=== PATIENT | female | born 1975 | race Caucasian/White ===

== ENCOUNTER 2019-01-08 00:23 | Emergency (ER) | payer MEDICAID, SELFPAY ==
[2019-01-08 00:24] VITALS: BP 134/85; PULSE 79; RESP 20; TEMP 36.8; O2SAT 98; BMI 36.6
--- NOTE | 2019-01-08 00:43 | ED.DCSUM_ITS ---
- ER Visit Summary Date of Service: 01/08/19 Chief Complaint: Dental pain History of Present Illness: The patient is a 43 F who presents with left lower dental pain that has been getting worse over the past 4 days. Patient describes the pain as aching and burning. Patient states the pain is over the lower incisors and worse on the left. Patient admits to hot and cold sensitivity. Patient denies any fevers or chills. Patient denies any facial or jaw swelling. Physical Examination: Vital signs are stable. Patient is afebrile. Patient is in no acute distress. Oral mucosa is pink and moist. There is tenderness over the left lower incisors. There is some mild gingival edema around these teeth. There is no discharge or drainage. There is no fluctuance. There is no sublingual edema. Oropharynx is clear. Airway is patent. Neck is supple. Trachea is midline. There is no JVD noted. Heart was regular rate and rhythm. Lungs are clear and equal bilaterally. Emergency Department Course and Treatment: Patient was given a dose of pen VK and Naprosyn here. Patient was given prescriptions for the same. Patient was instructed to follow-up with her dentist in 5-7 days. Patient understood and was agreeable with the plan. All questions were answered. Disposition: Discharge home Impression: Infected dental caries This note was generated with [employer] dictation software. It may contain incorrect words, spelling, and punctuation that were not noted in review of the chart prior to signing ED Disposition - Plan for ED Patient: Disposition: Home or Assisted Living Diagnosis: Infected dental caries Instructions: ED Cavity Dental Prescriptions: Naproxen [Naprosyn] 500 mg PO BID PRN #20 tab Penicillin Vk [Pen-Vee K 250MG] 500 mg PO 4X/DAY #40 tab Referrals: Ang Acosta MD [Primary Care Provider] - 5-7 Days
[2019-01-08] MEDS: Naproxen 250 MG Tablet 500 MG PO (00:47)
[2019-01-08] MEDS: Penicillin Vk 250 MG Tablet 500 MG PO (00:47)
[2019-01-08 01:07] VITALS: BP 144/97; PULSE 66; RESP 18; O2SAT 97
== END 2019-01-08 01:08 | disposition home or self-care (01) ==
PROVIDERS: Emergency Provider Emergency Medicine; Family Provider Family Medicine; PCP Family Medicine
DX: K02.9 Dental caries, unspecified (principal); K04.7 Periapical abscess without sinus; F32.9 Major depressive disorder, single episode, unspecified; Z72.0 Tobacco use
CPT/HCPCS: 99283

== ENCOUNTER 2019-02-09 16:03 | Emergency (ER) | payer MEDICAID, SELFPAY ==
[2019-02-09 16:03] VITALS: BP 125/80; PULSE 93; RESP 18; TEMP 36.9; O2SAT 95; BMI 36.6
--- NOTE | 2019-02-09 16:28 | CT_ITS ---
STUDY: CT ABDOMEN AND PELVIS WITH CONTRAST REASON FOR EXAM: Female, 43 years old. Abdominal pain RADIATION DOSAGE (If Supplied By Facility): CTDIvol = ( 25.59 ) mGy, DLP = ( 1647.83 ) mGycm TECHNIQUE: Transaxial images were obtained from the dome of the diaphragm to the symphysis pubis without oral contrast. 100 ml of Isovue 300 contrast was administered. Sagittal and coronal images were reconstructed. Individualized dose optimization techniques were used for this CT. COMPARISON: 08/11/2017. FINDINGS: The visualized lung bases are clear. The visualized portions of the heart and pericardium are within normal limits. There are no calcified gallstones present. The liver is within normal limits. There are no suspicious hepatic lesions. The spleen is enlarged, measuring 15.1 cm in maximal dimension. The pancreas is within normal limits. The adrenal glands are within normal limits. There are bilateral subcentimeter nonobstructing renal collecting system stones. There are no ureteral stones. There is no hydronephrosis. There are no focal renal lesions. Normal visualized stomach. There is no bowel obstruction or inflammation. The appendix is visualized and appears normal. The aorta is normal in caliber. There are tubal ligation clips noted. There are bilateral adnexal cysts with the largest measuring 4 cm on the left. There is no abdominal or pelvic free air, free fluid, fluid collection or lymphadenopathy. There are no destructive osseous lesions. CT/Abdomen/Pelvis W IV Cont ONLY IMPRESSION: Bilateral adnexal cysts, measuring up to 4 cm on the left. If indicated, further evaluation with ultrasound can be performed. Subcentimeter nonobstructing renal collecting system stones. No ureteral stones. No hydronephrosis. No bowel obstruction or inflammation. Normal appendix. Splenomegaly. Electronically Signed: Db Castaneda, at 18:52 EDT Tel , Service support ,
[2019-02-09 16:40] LABS: Absolute Lymphocyte Count 1.91 X10^3/ul (0.83-4.51); Absolute Neutrophil Count 7.2 X10^3/uL (2.0-7.7); Basophil# 0.01 X10^3/uL; Basophil% 0.1 % (0-1); Eosinophil# 0.09 X10^3/uL; Eosinophils% 0.9 % (0-5); Hematocrit 42.3 % (37-47); Hemoglobin 14.1 g/dl (12.0-15.0); Lymphocyte # 1.91 X10^3/ul (4.0); Lymphocyte % 19.4 % (19-41); Mean Corp Hgb Conc 33.3 g/gl (32-36); Mean Corpuscular Hgb 29.4 pg (27.0-32.0); Mean Corpuscular Volume 88.3 fL (81-99); Mean Platelet Vol. 11.7 fl (6.2-12.0); Monocyte# 0.68 X10^3/uL; Monocyte% 6.9 % (0-10); Neutrophil # 7.16 X10^3/uL (2.7-7.7); Neutrophil % 72.5 % (47-70); Platelet Count 228 K/mm3 (150-450); RBC Distribution Width CV 13.6 % (11.6-14.6); RBC Distribution Width SD 44.2 fl (35.1-43.9); Red Blood Count 4.79 M/mm3 (4.2-5.4); White Blood Count 9.9 K/mm3 (4.4-11.0)
[2019-02-09] MEDS: Ondansetron 4 MG/2 ML Vial IV (16:47)
[2019-02-09] MEDS: 0.9% Normal Saline 1,000 ML 1000 ML IV (16:47)
[2019-02-09 16:55] LABS: ALB/GLOB Ratio 0.7 RATIO (0.9-2.4); AST(SGOT) 99 U/L (15-37); Alanine Aminotransfer ALT/SGPT 115 U/L (13-56); Albumin, Serum 3.6 g/dL (3.2-5.0); Alkaline Phosphatase 113 U/L (45-117); Anion Gap 8 (5-15); BUN 12 mg/dL (7-18); BUN/Creat Ratio 11.8 RATIO (10-20); Calcium,Total 9.4 mg/dL (8.5-10.1); Chloride 111 mmol/L (98-107); Creatinine, Serum 1.02 mg/dL (0.55-1.02); EST Glomerular Filtration Rate 62 mL/min (>60); Est Glom Filt Rate - Afr Amer 75 mL/min (>60); Estimated Creatinine Clearance 55.09 ml/min; Globulin 5.2 g/dL (2.2-4.2); Glucose 115 mg/dL (74-106); Lipase 160 U/L (73-393); POSITIVE COUNT NO; POSITIVE DIFFERENTIAL NO; POSITIVE MORPHOLOGY NO; Potassium 3.6 mmol/L (3.5-5.1); Protein, Total 8.8 g/dL (6.4-8.2); Sodium Level 138 mmol/L (136-145)
[2019-02-09 17:43] LABS: Color, Urine Yellow (Yellow); Glucose, Dipstick Normal (Normal); Ketone-Dipstick Negative (Negative); Leukocyte Esterase-Dipstick 25 /ul (Negative); Nitrite-Dipstick Negative (Negative); Occult Blood-Urine Negative /ul (Negative); Protein-Dipstick 15 mg/dl (Negative); Urine Bilirubin Dipstick Negative (Negative); Urine Clarity Sl. Cloudy (Clear); Urine Urobilinogen 1 mg/dl (Normal)
[2019-02-09 18:01] LABS: Bacteria 4+ /hpf (None Seen)
[2019-02-09 18:02] LABS: Mucous, Urine 2+ /hpf (<or=2+); Red Blood Cells-Urine 0-5 SEEN /hpf (0-5); Squamous Epithelial Cells - UA 25-50 SEEN /hpf (5-10); White Blood Cells 0-5 SEEN /hpf (0-5)
[2019-02-09 18:10] LABS: Internal QC Validated? YES +Cl - CLEAR BKGD; Pregnancy, Serum, hCG Quali. NEGATIVE Negative
[2019-02-09 19:03] VITALS: BP 146/81; PULSE 76; RESP 16; O2SAT 96
--- NOTE | 2019-02-09 19:18 | ED.VISSUMM ---
- ER Visit Summary Date of Service: 02/09/19 Chief Complaint: Stomach pain History of Present Illness: The patient is a 43 F with stomach pain for 2 days. The patient said it felt like gas. The pain involves her upper abdomen. Associated with belching and diarrhea. Denies chest pain or shortness of breath. Denies bleeding. Denies any recent antibiotics or hospitalization. She does have a history of hepatitis C, depression, and anxiety. History of a liver biopsy. She does occasionally drink alcohol and she is a smoker. Physical Examination: Afebrile and vital signs unremarkable. Alert and oriented. No acute distress. Heart regular rate and rhythm. Lungs clear. Abdomen soft, nontender, nondistended, with normal bowel sounds. Skin appears normal in color without pallor or jaundice. Extremity is nontender with no edema. Test Results: CBC normal. Chloride 111, CO2 19 and glucose 115. ALT 115 and AST 99. Lipase normal. Urinalysis unremarkable. testing negative. CT was done and showed bilateral adnexal cyst, largest measuring 4cm on the left. She has renal stones that are nonobstructing and splenomegaly. Emergency Department Course and Treatment: Patient treated with fluids and Zofran. Her work-up was all fairly unremarkable. Her liver enzymes are elevated. She does have a history of hepatitis C. Imaging showed bilateral adnexal cysts. Patient is not having lower abdominal pain. He could be contributing to her diarrhea. Her CT also showed nonobstructing renal stones and splenomegaly. I believe the patient is appropriate for medical treatment. We will treat with Zofran and Imodium. Stay hydrated. Follow-up with primary care. Treatment Plan: As above Disposition: Discharge Impression: 1. Diarrheal illness 2. History of hepatitis C This note was generated with [employer] software. It may contain incorrect words, spelling, and punctuation that were not noted in review of the chart prior to signing ED Disposition - Plan for ED Patient: Referrals: Ang Acosta MD [Primary Care Provider] -
--- NOTE | 2019-02-09 19:47 | ED.DCSUM_ITS ---
- ER Visit Summary Date of Service: 02/09/19 Chief Complaint: Stomach pain History of Present Illness: The patient is a 43 F with stomach pain for 2 days. The patient said it felt like gas. The pain involves her upper abdomen. Associated with belching and diarrhea. Denies chest pain or shortness of arlin th. Denies bleeding. Denies any recent antibiotics or hospitalization. She does have a history of hepatitis C, depression, and anxiety. History of a liver biopsy. She does occasionally drink alcohol and she is a smoker. Physical Examination: Afebrile and vital signs unremarkable. Alert and oriented. No acute distress. Heart regular rate and rhythm. Lungs clear. Abdomen soft, nontender, nondistended, with normal bowel sounds. Skin appears normal in color without pallor or jaundice. Extremity is nontender with no edema. Test Results: CBC normal. Chloride 111, CO2 19 and glucose 115. ALT 115 and AST 99. Lipase normal. Urinalysis unremarkable. testing negative. CT was done and showed bilateral adnexal cyst, largest measuring 4cm on the left. She has renal stones that are nonobstructing and splenomegaly. Emergency Department Course and Treatment: Patient treated with fluids and Zofran. Her work-up was all fairly unremarkable. Her liver enzymes are elevated. She does have a history of hepatitis C. Imaging showed bilateral adnexal cysts. Patient is not having lower abdominal pain. He could be contributing to her diarrhea. Her CT also showed nonobstructing renal stones and splenomegaly. I believe the patient is appropriate for medical treatment. We will treat with Zofran and Imodium. Stay hydrated. Follow-up with primary care. Treatment Plan: As above Disposition: Discharge Impression: 1. Diarrheal illness 2. History of hepatitis C This note was generated with [employer] software. It may contain incorrect words, spelling, and punctuation that were not noted in review of the chart prior to signing ED Disposition - Plan for ED Patient: Referrals: Ang Acosta MD [Primary Care Provider] -
--- NOTE | 2019-02-09 19:47 | ED.DEP ---
ED Disposition - Plan for ED Patient: Instructions: ED Vomiting Diarrhea Nonspecific Ad Prescriptions: Loperamide [Imodium] 2 mg PO Q4H PRN PRN #30 cap PRN Reason: Diarrhea Ondansetron [Zofran Odt] 4 mg PO Q8H PRN PRN #10 tab PRN Reason: Nausea Referrals: Ang Acosta MD [Primary Care Provider] -
[2019-02-09] MEDS: Loperamide 2 MG Capsule 4 MG PO (19:53)
== END 2019-02-09 19:56 | disposition home or self-care (01) ==
LOC: ED 16:30
PROVIDERS: Emergency Provider Emergency Medicine; Family Provider Family Medicine; PCP Family Medicine
DX: R19.7 Diarrhea, unspecified (principal); F32.9 Major depressive disorder, single episode, unspecified; F41.9 Anxiety disorder, unspecified; F17.200 Nicotine dependence, unspecified, uncomplicated; Z79.899 Other long term (current) drug therapy; Z86.19 Personal history of other infectious and parasitic diseases
CPT/HCPCS: 74177; 80053; 81001; 83690; 84703; 85025; 96361; 96374; 99284; J7030; Q9967; A4216; J2405

== ENCOUNTER → 2019-02-20 10:30 | Outpatient (CLI) | payer MEDICAID, SELFPAY ==
[2019-02-20 10:02] VITALS: BMI 36.6
[2019-02-20 16:42] LABS: Chlamydia Trachomatis by PCR Negative (Negative); Neisserai gonorrhoeae by PCR Negative (Negative); Probe Check PASS; Sample Adequacy Control PASS; Specimen Processing Control PASS
[2019-02-22 16:53] LABS: HPV APTIMA, High Risk Negative (Negative)
== END ==
PROVIDERS: Family Provider Family Medicine; PCP Family Medicine; Referring Provider Nurse Practitioner Women's Health; Visit Provider Nurse Practitioner Women's Health
DX: Z12.4 Encounter for screening for malignant neoplasm of cervix (principal); Z11.3 Encounter for screening for infections with a predominantly sexual mode of transmission
CPT/HCPCS: 87491; 87591; 87624; 88175; G0145

== ENCOUNTER → 2019-02-22 13:30 | Outpatient (CLI) | payer MEDICAID, SELFPAY ==
[2019-02-20 10:02] VITALS: BMI 36.6
--- NOTE | 2019-02-22 13:32 | US_ITS ---
STUDY: ULTRASOUND OF THE FEMALE PELVIS - COMPLETE REASON FOR EXAM: Female, 43 years old. Pelvic pain TECHNIQUE: Transabdominal and Transvaginal TECHNICAL QUALITY: Adequate. COMPARISON: CT dated 02/09/2019 FINDINGS: The uterus is anteverted and is in a midline position. The uterus measures 9.4 x 6.1 x 4.8 cm cm. Normal uterine cervix. The endometrium measures 3 mm in thickness, and is hyperechoic. There is no demonstrated endometrial mass. There are hyperechoic nodules extending into the myometrium which may be due to adenomyosis. The right ovary is visualized. The right ovary measures 4.0 x 2.3 x 2.1 cm. There is a 1.9 x 1.4 cm cyst in the right ovary. There is no visualized right adnexal mass or complex lesion. There is normal arterial and normal venous vascularity. The left ovary is visualized. The left ovary measures 4.7 x 2.7 x 2.1 cm. There is a 2.5 x 2.1 cm cyst in the left ovary. There is no visualized left adnexal mass or complex lesion. There is normal arterial and normal venous vascularity. There is a moderate amount of free fluid. US/Transvaginal Non- IMPRESSION: Hyperechoic nodule extending from the endometrium to the myometrium which may be due to adenomyosis. If indicated, further evaluation with MRI can be performed. Bilateral ovarian cysts. Moderate amount of free fluid. Electronically Signed: Db Tonya, at 17:53 EDT Tel , Service support ,
--- NOTE | 2019-02-22 13:32 | US_ITS ---
STUDY: ULTRASOUND OF THE FEMALE PELVIS - COMPLETE REASON FOR EXAM: Female, 43 years old. Pelvic pain TECHNIQUE: Transabdominal and Transvaginal TECHNICAL QUALITY: Adequate. COMPARISON: CT dated 02/09/2019 FINDINGS: The uterus is anteverted and is in a midline position. The uterus measures 9.4 x 6.1 x 4.8 cm cm. Normal uterine cervix. The endometrium measures 3 mm in thickness, and is hyperechoic. There is no demonstrated endometrial mass. There are hyperechoic nodules extending into the myometrium which may be due to adenomyosis. The right ovary is visualized. The right ovary measures 4.0 x 2.3 x 2.1 cm. There is a 1.9 x 1.4 cm cyst in the right ovary. There is no visualized right adnexal mass or complex lesion. There is normal arterial and normal venous vascularity. The left ovary is visualized. The left ovary measures 4.7 x 2.7 x 2.1 cm. There is a 2.5 x 2.1 cm cyst in the left ovary. There is no visualized left adnexal mass or complex lesion. There is normal arterial and normal venous vascularity. There is a moderate amount of free fluid. US/Pelvic (Non ) IMPRESSION: Hyperechoic nodule extending from the endometrium to the myometrium which may be due to adenomyosis. If indicated, further evaluation with MRI can be performed. Bilateral ovarian cysts. Moderate amount of free fluid. Electronically Signed: Db Castaneda, at 17:54 EDT Tel , Service support ,
== END ==
PROVIDERS: Family Provider Family Medicine; PCP Family Medicine; Referring Provider Nurse Practitioner Women's Health; Visit Provider Nurse Practitioner Women's Health
DX: R10.2 Pelvic and perineal pain (principal)
CPT/HCPCS: 76830; 76856; 93976

== ENCOUNTER 2019-06-11 07:16 | Emergency (ER) | payer MEDICAID, SELFPAY ==
[2019-02-20 10:02] VITALS: BMI 36.6
[2019-06-11 07:17] VITALS: BP 140/85; PULSE 92; RESP 16; TEMP 36.8; O2SAT 94; BMI 36.6
--- NOTE | 2019-06-11 07:35 | RAD_ITS ---
STUDY: X-RAY CHEST REASON FOR EXAM: Female, 43 years old. One-week history of cough. TECHNIQUE: PA and lateral views of the chest. COMPARISON: None. FINDINGS: The lungs are clear and expanded. There is no demonstrated pleural abnormality. Normal size heart. Normal mediastinum and cal. Normal visualized pulmonary arteries. Normal visualized aortic arch and descending thoracic aorta. Normal visualized thoracic spine. Normal visualized ribs, clavicles, and shoulders. There is no demonstrated abnormality of the visualized soft tissue structures of the upper abdomen. RAD/Chest PA and Lateral IMPRESSION: Normal x-ray examination of the chest. Electronically Signed: Isidro Burnett, at 8:34 EDT , Service support ,
[2019-06-11] MEDS: Albuterol 2.5 MG/3 ML VIAL.NEB. INHALATION (07:42)
[2019-06-11] MEDS: predniSONE 20 MG Tablet 60 MG PO (07:43)
--- NOTE | 2019-06-11 07:43 | ED.VISSUMM ---
- ER Visit Summary Date of Service: 06/11/19 Chief Complaint: Cough and shortness of breath History of Present Illness: The patient is a 43 F who has a cough and shortness of breath. Is been ongoing for 1 week. She saw her PCP who gave her an inhaler and she has also been trying Mucinex at home without any relief. She has had mild nasal congestion with this. She also states that her cough is not productive. Nothing comes up. She did not check her temperature at home. She is a smoker and is diagnosed with COPD. She denies any other symptoms. No chest pain. Physical Examination: Vital signs are reviewed. HEENT exam unremarkable. Heart is regular rate and rhythm without murmurs. Lungs have diffuse expiratory rhonchi and wheezing. Her abdomen is soft and nontender. Extremities have no edema. Neurologic exam normal. Test Results: Chest x-ray normal Emergency Department Course and Treatment: Patient was given albuterol as well as prednisone. Upon reevaluation she still has some slight wheezing but she is 96% on room air. Patient will be discharged to continue her albuterol inhaler at home. She will be given 4 more days of prednisone. She was counseled on smoking cessation. She will need to follow-up with her PCP if her symptoms persist. Treatment Plan: [] Disposition: Discharge Impression: Bronchitis This note was generated with [employer] dictation software. It may contain incorrect words, spelling, and punctuation that were not noted in review of the chart prior to signing ED Disposition - Plan for ED Patient: Referrals: Ang Acosta MD [Primary Care Provider] -
[2019-06-11 07:45] VITALS: PULSE 82; RESP 18; O2SAT 94
--- NOTE | 2019-06-11 08:56 | ED.DEP ---
ED Disposition - Plan for ED Patient: Disposition: Home or Assisted Living Instructions: BRONCHITIS with Wheezing (Adult) Prescriptions: Prednisone [Deltasone] 60 mg PO DAILY #12 tab Prescription Printed Referrals: Ang Acosta MD [Primary Care Provider] -
== END 2019-06-11 09:14 | disposition home or self-care (01) ==
PROVIDERS: Emergency Provider Emergency Medicine; Family Provider Family Medicine; PCP Family Medicine
DX: J40 Bronchitis, not specified as acute or chronic (principal); J44.9 Chronic obstructive pulmonary disease, unspecified; F32.9 Major depressive disorder, single episode, unspecified; F17.200 Nicotine dependence, unspecified, uncomplicated; Z79.899 Other long term (current) drug therapy
CPT/HCPCS: 71046; 94640; 99283

== ENCOUNTER → 2020-11-27 | Outpatient (CLI) | payer MEDICAID, SELFPAY ==
--- NOTE | 2020-11-27 | EMB_PTH ---
PATIENT: CAROLINA HIGHTOWER [facility] U#:[id number] AGE/SX: 45/F ROOM: RE11/27/[address]: Dr. Samir Narvaez MD : 1975 BED: DIS: 11/27/2020 SPEC #: [id number] RECD: 11/27/20 17:10 STATUS: TRAMAINE REQ #: [id number] KYLAH: 11/27/20 00:[address]: Samir Narvaez DEPT: SURGICAL PATHOLOGY RECD BY: Mayra Sanders ENTERED: 11/28/20 08:38 SP TYPE: ENDOM BX/C [place] DR: Dr. Ang Acosta MD Tissues: Endometrium, NOS Procedures: Surgery Specimen Level IV HEADER OPERATION: Endometrial biopsy PRE-OP DIAGNOSIS: Irregular menses TISSUE SUBMITTED: Endometrial biopsy MICROSCOPIC DIAGNOSIS Endometrial biopsy: Proliferative endometrium. See comment. MT:samy 12/01/2020 COMMENT A polypoid fragment suggestive of benign endometrial polyp is also noted. Clinical correlation and appropriate follow up are necessary. MICROSCOPIC DESCRIPTION Slides are reviewed. GROSS DESCRIPTION Received is one container labeled with the patient's name and not further designated. The specimen consists of multiple fragments of hemorrhagic soft tissue that in aggregate measure 2.5 x 1.2 x 0.1 cm. The specimen is totally submitted in one cassette. / SJ:samy 11/28/20 TC:5 CPT: 67348
== END | disposition home or self-care (01) ==
LOC: LABSPEC 17:00
PROVIDERS: PCP Family Medicine; Visit Provider Obstetrics & Gynecology
DX: N92.6 Irregular menstruation, unspecified (principal)
CPT/HCPCS: 88305

== ENCOUNTER 2021-02-24 02:20 | Emergency (ER) | payer MEDICAID, SELFPAY ==
[2021-02-24 02:21] VITALS: BP 108/61; PULSE 60; RESP 16; TEMP 36.4; O2SAT 97; BMI 37.3
--- NOTE | 2021-02-24 02:40 | EX.ED.DYSGE1 ---
HPI History of Present Illness Chief Complaint: Bite Informant: patient Narrative Narrative: 45-year-old female states that she was playing with her dog when she fell down. She states her face got caught by the grass. States she washed them up. She states her whole body hurts. She also notes that she has not had a period for 1 year. She states that earlier today she started having some vaginal bleeding but that has since stopped. She does not know who her ux researcher is because it has been years since she saw them. [facility] Medical History Acute insomnia Anxiety Depression Hepatitis C infection History of mixed drug abuse Home Medications duloxetine 100 mg PO DAILY 10/08/13 [History Last Taken 12/24/13] topiramate 25 mg PO BID 12/24/13 [History Last Taken 12/24/13] zolpidem 5 mg PO QHS 12/24/13 [History Last Taken 12/23/13] ferrous sulfate 325 mg PO DAILY 02/09/19 [History Last Taken Unknown] hydroxyzine HCl 25 mg PO PRN PRN 02/09/19 [History Last Taken Unknown] loperamide 2 mg PO Q4H PRN PRN #30 cap 02/09/19 [Rx Last Taken Unknown] ondansetron 4 mg PO Q8H PRN PRN #10 tab 02/09/19 [Rx Last Taken Unknown] aripiprazole 10 mg tablet 15 mg PO QHS tab 02/20/19 [History Last Taken Unknown] desvenlafaxine 100 mg tablet,extended release 24 hour 100 mg PO DAILY 02/20/19 [History Last Taken Unknown] gabapentin 300 mg capsule 300 mg PO DAILY 02/20/19 [History Last Taken Unknown] norethindrone (contraceptive) 0.35 mg tablet 0.35 mg PO QDAY #84 tab 02/28/19 [Rx Last Taken Unknown] albuterol sulfate 1 - 2 puff INHALATION Q4H PRN PRN 06/11/19 [History Last Taken Unknown] prednisone 60 mg PO DAILY #12 tab 06/11/19 [Rx Last Taken Unknown] Allergy/AdvReac Type Severity Reaction Status Date / Time aspirin Allergy Other Verified 02/24/21 02:26 bupropion HCl Allergy SEIZURES Verified 02/24/21 02:26 [From Wellbutrin] codeine Allergy Rash Verified 02/24/21 02:26 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, marijuana, heroin and methamphetamine seatbelt use: always do you feel safe at home: Yes ROS ROS ED Constitutional Constitutional ED: Denies chills or weight loss Eyes Eyes: Denies change in vision or diplopia ENT ENT ED: Denies ear pain, rhinorrhea or sore throat Cardiovascular Cardiovascular: Denies chest pain, orthopnea, palpitations or racing heartbeat Respiratory/Chest Respiratory/Chest: Denies cough, dyspnea or orthopnea Gastrointestinal Gastrointestinal: Denies abdominal pain, diarrhea, nausea or vomiting Genitourinary Genitourinary ED: Reports other Details: Vaginal bleeding ; Denies dysuria, hematuria or urinary frequency Musculoskeletal Musculoskeletal: Reports myalgias; Denies arthralgias Integumentary Reports Abrasions; Denies abscess or rash Neurologic Neurologic: Denies headache(s) or weakness Psychiatric Psychiatric: Denies anxiety, depression, suicidal ideation or suicidal thoughts Endocrine Endocrinology: Denies polydipsia, polyphagia or polyuria Allergic/Immunologic Allergic/Immunologic ED: Denies mouth swelling, tongue swelling or urticaria EXAM Physical Exam Const Vital Signs: 02/24/21 02:21 Temperature 97.6 F L Temperature Source Temporal Pulse Rate 60 Respiratory Rate 16 Blood Pressure 108/61 Blood Pressure Mean 76 Pulse Ox 97 Oxygen Delivery Method Room Air Positive well nourished, well developed and obese General Appearance ED: well developed Nutritional Appearance: obese HEENT Reports normocephalic and head/scalp atraumatic trauma Eyes PERRL and EOMs intact bilaterally Neck no lymphadenopathy, supple and no JVD Resp normal respiratory effort and clear to auscultation bilaterally Cardio regular rate, regular rhythm and no murmurs GI normal to inspection, nondistended, normoactive bowel sounds and non-tender Palpation: soft Back/Spine no CVA tenderness and normal ROM Extremity normal to inspection General Extremety ED: Negative for edema General Extremity: Negative for edema Neuro oriented x3 and CN's II-XII intact bilaterally Sensorium / Orientation: alert Motor Exam: strength 5/5 throughout Psych mental status grossly normal Mood & Affect: Negative for depressed or tearful Skin no rashes or lesions noted Skin Narrative: Multiple superficial abrasions to the face. MDM MDM MDM Narrative Medical decision making narrative: The abrasions are superficial and do not need to be sewn. Generalized body pain after a fall is not uncommon and would recommend Tylenol Motrin for that. For the postmenopausal bleeding that is no longer going on I think she should see gynecology for this. Dr. Dawson is on no doc gynecology. It is 0245 hours and ultrasound is not readily available. I do not feel that they need to be emergently called in as this can be worked up as an outpatient. Discharge Plan Triage Chief Complaint: Bite ED Provider: Tom Wong Dx/Rx/DC Orders Clinical Impression: Abnormal vaginal bleeding in postmenopausal patient, Abrasion of face without infection Instructions: ED Abrasion Prescriptions: No Action gabapentin 300 mg capsule 300 mg PO DAILY RF: 0 desvenlafaxine 100 mg tablet extended release 24hr 100 mg PO DAILY RF: 0 duloxetine 20 MG capsule 100 mg PO DAILY RF: 0 aripiprazole 10 mg tablet 15 mg PO QHS RF: 0 topiramate 25 MG tablet 25 mg PO BID RF: 0 zolpidem 12.5 MG tablet,ext release multiphase 5 mg PO QHS RF: 0 ferrous sulfate 325 MG tablet 325 mg PO DAILY RF: 0 hydroxyzine HCl 25 MG tablet 25 mg PO PRN PRN (Reason: Anxiety) RF: 0 ondansetron 4 MG tablet 4 mg PO Q8H PRN PRN (Reason: Nausea) Qty: 10 RF: 0 loperamide 2 MG capsule 2 mg PO Q4H PRN PRN (Reason: Diarrhea) Qty: 30 RF: 0 albuterol sulfate 1 PUFF inhaler 1 - 2 puff inhalation Q4H PRN PRN (Reason: Sob &/Or Wheezing) RF: 0 prednisone 20 MG tablet 60 mg PO DAILY Qty: 12 RF: 0 norethindrone (contraceptive) [Carmen] 0.35 mg tablet 0.35 mg PO QDAY Qty: 84 RF: 4 Primary Care Provider: Ang Acosta Referrals: Jeannette Dawson MD [STAFF PHYSICIAN] - As soon as possible Ang Acosta MD [Primary Care Provider] - As Needed Activity Restrictions/Additional Instructions: Postmenopausal bleeding should be appropriately worked up by gynecology. Dr. Dawson is a ux researcher locally that can evaluate you. Disposition Disposition: Home, self care
[2021-02-24 02:59] VITALS: BP 120/76; PULSE 80; RESP 16
== END 2021-02-24 03:00 | disposition home or self-care (01) ==
LOC: ED 02:53
PROVIDERS: Emergency Provider Emergency Medicine; PCP Family Medicine
DX: N95.0 Postmenopausal bleeding (principal); S00.81XA Abrasion of other part of head, initial encounter; E66.9 Obesity, unspecified; W19.XXXA Unspecified fall, initial encounter; F17.210 Nicotine dependence, cigarettes, uncomplicated
CPT/HCPCS: 99282

== ENCOUNTER 2021-06-12 18:12 | Emergency (ER) | payer MEDICAID, SELFPAY ==
[2021-06-12 18:15] VITALS: BP 129/84; PULSE 82; RESP 16; TEMP 36.9; O2SAT 97; BMI 37.1
--- NOTE | 2021-06-12 19:23 | CT_ITS ---
STUDY: CT ABDOMEN AND PELVIS WITHOUT CONTRAST REASON FOR EXAM: Female, 45 years old. Pain hepatitis C emphysema RADIATION DOSAGE (If Supplied By Facility): CTDIvol = ( 15.79 ) mGy, DLP = ( 781.18 ) mGycm TECHNIQUE: Transaxial images were obtained from the dome of the diaphragm to the symphysis pubis without oral contrast, and without intravenous contrast. Sagittal and coronal images were reconstructed. Individualized dose optimization techniques were used for this CT. COMPARISON: None. FINDINGS: Lung bases are clear. Liver is moderately cirrhotic with volume redistribution to the right lobe. There is no ascites. Gallbladder is normal. There is no biliary dilation. Spleen is moderately enlarged. Normal liver. Normal gallbladder and extrahepatic biliary system. Normal spleen. Normal pancreas. Normal bilateral adrenal glands. There is no hydronephrosis. There is a 3 mm interpolar calyceal and 2 lower pole 1 mm nonobstructing calculi. There are no ureteral or bladder stones. There is no intestinal obstruction. There is inflammation in the subhepatic space and related to the right colon. Appendix is normal. There is no fluid collections or free gas. Normal abdominal aorta. Normal inferior vena cava. Normal retroperitoneum. Normal urinary bladder. There are tubal ligation clips. Normal abdominal wall. Normal osseous structures. CT/Abdomen/Pelvis without Cont IMPRESSION: 1. Subhepatic right upper quadrant pericolonic inflammation, probably diverticulitis. 2. Moderate cirrhosis, no ascites. Electronically Signed: Lobo Jeffers MD at 20:45 EDT Tel , Service support ,
--- NOTE | 2021-06-12 19:25 | ED.VIS.GI ---
HPI HPI - GI History of Present Illness Chief Complaint: Abd Pain Narrative Narrative: Patient with past medical history of hepatitis C, presents from rehabilitation with abdominal pain and bloating. She states mainly on the right side. It started over the last 2 days. She states she was told to drink plenty of water and in doing so, her abdomen became distended. She denies any chest pain or shortness of breath. No fevers or chills. No nausea or vomiting. She denies any dysuria or hematuria. No other symptoms. [facility] Medical History Acute insomnia Anxiety Depression Hepatitis C infection History of mixed drug abuse Home Medications duloxetine 100 mg PO DAILY 10/08/13 [History Last Taken 12/24/13] topiramate 25 mg PO BID 12/24/13 [History Last Taken 12/24/13] zolpidem 5 mg PO QHS 12/24/13 [History Last Taken 12/23/13] ferrous sulfate 325 mg PO DAILY 02/09/19 [History Last Taken Unknown] hydroxyzine HCl 25 mg PO PRN PRN 02/09/19 [History Last Taken Unknown] loperamide 2 mg PO Q4H PRN PRN #30 cap 02/09/19 [Rx Last Taken Unknown] ondansetron 4 mg PO Q8H PRN PRN #10 tab 02/09/19 [Rx Last Taken Unknown] aripiprazole 10 mg tablet 15 mg PO QHS tab 02/20/19 [History Last Taken Unknown] desvenlafaxine 100 mg tablet,extended release 24 hour 100 mg PO DAILY 02/20/19 [History Last Taken Unknown] gabapentin 300 mg capsule 300 mg PO DAILY 02/20/19 [History Last Taken Unknown] norethindrone (contraceptive) 0.35 mg tablet 0.35 mg PO QDAY #84 tab 02/28/19 [Rx Last Taken Unknown] albuterol sulfate 1 - 2 puff INHALATION Q4H PRN PRN 06/11/19 [History Last Taken Unknown] prednisone 60 mg PO DAILY #12 tab 06/11/19 [Rx Last Taken Unknown] ibuprofen 800 mg PO Q8H PRN #30 tab 06/12/21 [Rx Last Taken Unknown] levofloxacin 750 mg PO DAILY #7 tab 06/12/21 [Rx Last Taken Unknown] metronidazole 500 mg PO TID #21 tab 06/12/21 [Rx Last Taken Unknown] Allergy/AdvReac Type Severity Reaction Status Date / Time bupropion HCl Allergy SEIZURES Verified 06/12/21 18:14 [From Wellbutrin] codeine Allergy Rash Verified 06/12/21 18:14 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, marijuana, heroin and methamphetamine seatbelt use: always do you feel safe at home: Yes EXAM Physical Exam Const Vital Signs: 06/12/21 18:15 Temperature 98.4 F Temperature Source Temporal Pulse Rate 82 Respiratory Rate 16 Blood Pressure 129/84 H Blood Pressure Mean 99 Pulse Ox 97 Oxygen Delivery Method Room Air MDM MDM MDM Narrative Medical decision making narrative: Comprehensive work-up was pursued. She has normal white count at 10.0, hemoglobin stable of 12.5. Her electrolyte panel/CMP is grossly unremarkable except for elevated liver enzymes of 304 and 233 with an alk phos of 146. Lipase normal at 220. Her urinalysis shows WBCs 25-50 but is negative for nitrites. CT the abdomen pelvis shows subhepatic right upper quadrant pericolonic inflammation, probably diverticulitis. There is moderate cirrhosis but no evidence of ascites. Given her pain, she was administered Toradol 30 mg intravenously. As she states that she is in drug rehabilitation, I am hesitant to write her for narcotic pain medications for her diverticulitis. I do feel that her liver enzymes are chronically elevated from cirrhosis/hepatitis C. She was given her first doses of Levaquin and Flagyl here in the emergency department. I wrote her prescriptions for Levaquin, Flagyl, and ibuprofen. She is to follow-up with her primary care physician on Tuesday. She will return with any fever, increased pain, new or worsening symptoms. At this point in time, I do feel that she is stable for outpatient trial to treat her diverticulitis as she is of younger age, no white count, no fever here in the emergency department. Disposition is discharged home/back to rehabilitation. Patient is in stable condition. Lab Data Attestation: I reviewed the patient's lab results. Labs: Laboratory Results - last 24 hr 06/12/21 06/12/21 06/12/21 19:30 19:37 19:37 WBC 10.0 RBC 4.42 Hgb 12.5 Hct 39.3 MCV 88.9 MCH 28.3 MCHC 31.8 L RDW Std Deviation 53.5 H RDW Coeff of Katalina 16.6 H Plt Count 108 L MPV 11.6 Immature Gran % (Auto) 0.300 Neut % (Auto) 57.4 Lymph % (Auto) 30.5 [place] % (Auto) 8.6 Eos % (Auto) 2.6 Baso % (Auto) 0.6 Absolute Neuts (auto) 5.8 Absolute Lymphs (auto) 3.06 Nucleated RBC % 0 Sodium 138 Potassium 3.7 Chloride 110 H Carbon Dioxide 23.0 Anion Gap 5 BUN 9 Creatinine 0.89 Estim Creat Clear Calc 61.80 Est GFR (MDRD) Af Amer 88 Est GFR (MDRD) Non-Af 72 BUN/Creatinine Ratio 10.1 Glucose 78 Calcium 8.8 Total Bilirubin 1.10 H AST 304 H ALT 233 H Alkaline Phosphatase 146 H Total Protein 8.3 H Albumin 3.0 L Globulin 5.3 H Albumin/Globulin Ratio 0.6 L Lipase 220 Urine Color Yellow Urine Clarity Sl. Cloudy Urine pH 6.0 Ur Specific [place] 1.010 Urine Protein Negative Urine Glucose (UA) Normal Urine Ketones Negative Urine Occult Blood 150 H Urine Nitrite Negative Urine Bilirubin Negative Urine Urobilinogen Normal Ur Leukocyte Esterase 500 H Urine RBC 0 SEEN Urine WBC 25-50 SEEN Ur Squamous Epith Cells 0-5 SEEN Urine Bacteria 0 SEEN Urine Mucus 0 SEEN Urine Test Negative Radiography Diagnostic Testing: Radiology Impression Abdomen/Pelvis CT 06/12/21 19:23 IMPRESSION: 1. Subhepatic right upper quadrant pericolonic inflammation, probably diverticulitis. 2. Moderate cirrhosis, no ascites. Electronically Signed: Lobo Jeffers MD at 20:45 EDT Tel , Service support , Discharge Plan Triage Chief Complaint: Abd Pain ED Provider: Samuel Nelson Dx/Rx/DC Orders Clinical Impression: Hepatitis C, chronic, Abdominal pain, Diverticulitis Instructions: ED Diverticulitis Prescriptions: New levofloxacin 750 mg tablet 750 mg PO DAILY Qty: 7 RF: 0 metronidazole 500 mg tablet 500 mg PO TID Qty: 21 RF: 0 ibuprofen 800 mg tablet 800 mg PO Q8H PRN (Reason: pain) Qty: 30 RF: 0 No Action gabapentin 300 mg capsule 300 mg PO DAILY RF: 0 desvenlafaxine 100 mg tablet extended release 24hr 100 mg PO DAILY RF: 0 duloxetine 20 MG capsule 100 mg PO DAILY RF: 0 aripiprazole 10 mg tablet 15 mg PO QHS RF: 0 topiramate 25 MG tablet 25 mg PO BID RF: 0 zolpidem 12.5 MG tablet,ext release multiphase 5 mg PO QHS RF: 0 ferrous sulfate 325 MG tablet 325 mg PO DAILY RF: 0 hydroxyzine HCl 25 MG tablet 25 mg PO PRN PRN (Reason: Anxiety) RF: 0 ondansetron 4 MG tablet 4 mg PO Q8H PRN PRN (Reason: Nausea) Qty: 10 RF: 0 loperamide 2 MG capsule 2 mg PO Q4H PRN PRN (Reason: Diarrhea) Qty: 30 RF: 0 albuterol sulfate 1 PUFF inhaler 1 - 2 puff inhalation Q4H PRN PRN (Reason: Sob &/Or Wheezing) RF: 0 prednisone 20 MG tablet 60 mg PO DAILY Qty: 12 RF: 0 norethindrone (contraceptive) [Carmen] 0.35 mg tablet 0.35 mg PO QDAY Qty: 84 RF: 4 Primary Care Provider: Ang Acosta Referrals: Ang Acosta MD [Primary Care Provider] - 06/15/21 Disposition Disposition: Home, Self Care
[2021-06-12 19:42] LABS: Bacteria 0 SEEN /hpf (None Seen); Mucous, Urine 0 SEEN /hpf (<or=2+); Red Blood Cells-Urine 0 SEEN /hpf (0-5)
[2021-06-12 19:45] LABS: Absolute Lymphocyte Count 3.06 X10^3/uL (0.83-4.51); Absolute Neutrophil Count 5.8 X10^3/uL (2.0-7.7); Basophil# 0.06 X10^3/uL; Basophil% 0.6 % (0-1); Eosinophil# 0.26 X10^3/uL; Eosinophils% 2.6 % (0-5); Hematocrit 39.3 % (37-47); Hemoglobin 12.5 g/dL (12.0-15.0); Lymphocyte # 3.06 X10^3/ul (0.83-4.51); Lymphocyte % 30.5 % (19-41); Mean Corp Hgb Conc 31.8 g/dL (32-36); Mean Corpuscular Hgb 28.3 pg (27.0-32.0); Mean Corpuscular Volume 88.9 fL (81-99); Mean Platelet Vol. 11.6 fl (6.2-12.0); Monocyte# 0.86 X10^3/uL; Monocyte% 8.6 % (0-10); NRBC Flagged by Analyzer 0 % (0-5); Neutrophil # 5.77 X10^3/uL (2.7-7.7); Neutrophil % 57.4 % (47-70); Platelet Count 108 K/mm3 (150-450); RBC Distribution Width CV 16.6 % (11.6-14.6); RBC Distribution Width SD 53.5 fl (35.1-43.9); Red Blood Count 4.42 M/mm3 (4.2-5.4)
[2021-06-12 19:54] LABS: Color, Urine Yellow (Yellow); Glucose, Dipstick Normal (Normal); Ketone-Dipstick Negative (Negative); Leukocyte Esterase-Dipstick 500 /ul (Negative); Nitrite-Dipstick Negative (Negative); Occult Blood-Urine 150 /ul (Negative); Protein-Dipstick Negative (Negative); Urine Bilirubin Dipstick Negative (Negative); Urine Clarity Sl. Cloudy (Clear); Urine Urobilinogen Normal (Normal)
[2021-06-12 19:58] LABS: Internal QC Validated? YES +Cl - CLEAR BKGD; Pregnancy, Urine Negative Negative
[2021-06-12 19:59] LABS: Squamous Epithelial Cells - UA 0-5 SEEN /hpf (5-10); White Blood Cells 25-50 SEEN /hpf (0-5)
[2021-06-12 20:14] LABS: ALB/GLOB Ratio 0.6 RATIO (0.9-2.4); AST(SGOT) 304 U/L (15-37); Alanine Aminotransfer ALT/SGPT 233 U/L (13-56); Alkaline Phosphatase 146 U/L (45-117); Anion Gap 5 (5-15); BUN 9 mg/dL (7-18); BUN/Creat Ratio 10.1 RATIO (10-20); Calcium,Total 8.8 mg/dL (8.5-10.1); Chloride 110 mmol/L (98-107); Creatinine, Serum 0.89 mg/dL (0.55-1.02); EST Glomerular Filtration Rate 72 mL/min (>60); Est Glom Filt Rate - Afr Amer 88 mL/min (>60); Globulin 5.3 g/dL (2.2-4.2); Glucose 78 mg/dL (74-106); Lipase 220 U/L (73-393); Potassium 3.7 mmol/L (3.5-5.1); Protein, Total 8.3 g/dL (6.4-8.2); Sodium Level 138 mmol/L (136-145)
[2021-06-12] MEDS: metroNIDAZOLE 500 MG Tablet PO (21:39)
[2021-06-12] MEDS: levoFLOXacin 750 MG Tablet PO (21:40)
[2021-06-12] MEDS: Ketorolac 30 MG/ML Syringe IV (22:23)
[2021-06-12 23:01] VITALS: BP 125/71; PULSE 72; RESP 15; O2SAT 98
== END 2021-06-12 23:02 | disposition home or self-care (01) ==
PROVIDERS: Emergency Provider Emergency Medicine; PCP Family Medicine
DX: B18.2 Chronic viral hepatitis C (principal); K57.92 Diverticulitis of intestine, part unspecified, without perforation or abscess without bleeding; K74.60 Unspecified cirrhosis of liver; F32.9 Major depressive disorder, single episode, unspecified; F41.9 Anxiety disorder, unspecified; F17.210 Nicotine dependence, cigarettes, uncomplicated; Z79.52 Long term (current) use of systemic steroids; Z79.890 Hormone replacement therapy; Z79.899 Other long term (current) drug therapy
CPT/HCPCS: 74176; 80053; 81001; 81025; 83690; 85025; 96374; 99284; A4216

== ENCOUNTER 2021-06-29 20:14 | Emergency (ER) | payer MEDICAID, SELFPAY ==
[2021-06-29 20:15] VITALS: BP 141/89; PULSE 79; RESP 15; TEMP 37.3; O2SAT 99; BMI 39.9
[2021-06-29 20:53] LABS: Absolute Lymphocyte Count 1.71 X10^3/uL (0.83-4.51); Absolute Neutrophil Count 2.9 X10^3/uL (2.0-7.7); Basophil# 0.02 X10^3/uL; Basophil% 0.4 % (0-1); Eosinophil# 0.13 X10^3/uL; Eosinophils% 2.5 % (0-5); Hematocrit 37.3 % (37-47); Hemoglobin 11.7 g/dL (12.0-15.0); Lymphocyte # 1.71 X10^3/ul (0.83-4.51); Lymphocyte % 32.9 % (19-41); Mean Corp Hgb Conc 31.4 g/dL (32-36); Mean Corpuscular Hgb 27.9 pg (27.0-32.0); Mean Corpuscular Volume 88.8 fL (81-99); Mean Platelet Vol. 11.2 fl (6.2-12.0); Monocyte% 7.7 % (0-10); NRBC Flagged by Analyzer 0 % (0-5); Neutrophil # 2.92 X10^3/uL (2.7-7.7); Neutrophil % 56.3 % (47-70); POSITIVE COUNT YES; Platelet Count 90 K/mm3 (150-450); RBC Distribution Width CV 16.2 % (11.6-14.6); RBC Distribution Width SD 52.3 fl (35.1-43.9); White Blood Count 5.2 K/mm3 (4.4-11.0)
[2021-06-29 20:58] LABS: Differential Indicated SCAN CRITERIA MET
[2021-06-29 21:13] LABS: ALB/GLOB Ratio 0.5 RATIO (0.9-2.4); AST(SGOT) 236 U/L (15-37); Alanine Aminotransfer ALT/SGPT 160 U/L (13-56); Alkaline Phosphatase 181 U/L (45-117); Anion Gap 4 (5-15); BUN 6 mg/dL (7-18); BUN/Creat Ratio 6.8 RATIO (10-20); Calcium,Total 9.3 mg/dL (8.5-10.1); Chloride 112 mmol/L (98-107); Creatinine, Serum 0.89 mg/dL (0.55-1.02); EST Glomerular Filtration Rate 72 mL/min (>60); Est Glom Filt Rate - Afr Amer 88 mL/min (>60); Globulin 5.7 g/dL (2.2-4.2); Glucose 160 mg/dL (74-106); Potassium 4.4 mmol/L (3.5-5.1); Protein, Total 8.7 g/dL (6.4-8.2); Sodium Level 139 mmol/L (136-145)
[2021-06-29 21:54] LABS: Platelet Estimate MOD DEC (ADEQ); Red Cell Morphology NORM C+C NORMAL (NORM C&C)
--- NOTE | 2021-06-29 22:57 | ED.VIS.GI ---
HPI HPI - GI History of Present Illness Chief Complaint: Abd Pain Detail of Chief Complaint: Bilateral abdominal pain, diarrhea Informant: patient Abdominal Pain/Flank Pain Onset: Days (Onset Tuesday) Context: Sudden Onset Timing: Continuous and Waxes and wanes Quality: Cramping Location: RLQ and LLQ Current Severity: Mild Maximum Severity: Moderate Worsened by: Nothing Relieved by: Nothing Nausea/Vomiting/Emesis GI Symptom: Negative for Nausea and Vomiting Diarrhea/Melena/Hematochezia GI Symptom: Positive for Diarrhea (6-7 watery stools per day since Tuesday) Stool Quality: Positive for Loose and Watery Severity: Moderate Associated Symptoms Associated Symptoms: Negative for Dysuria, Frequency and Hematuria Narrative Narrative: Patient is a 45-year-old woman history of hepatitis C due to IV drug use. She is presently in rehab. She is status post tubal ligation. She denies fever, chills night sweats. She states she was seen several weeks ago and diagnosed with diverticulitis. She states she had onset of diarrhea with bilateral abdominal pain starting Tuesday. She denies blood or mucus in her diarrhea. She has noted bright red blood on tissue which she presumes is due to hemorrhoids. She denies headache, visual, ocular auditory symptoms. She denies cardiac symptoms. She does have a cough, which she attributes to smoking. It is no different than normal. She denies nausea or vomiting. She denies dysuria, frequency, urgency or hematuria. She denies history of renal ureterolithiasis. She has no symptoms of . She reports that she is postmenopausal. Prior similar symptoms: No Recent Illness/Hospitalization: Yes [facility] Medical History Acute insomnia Anxiety Depression Hepatitis C infection History of mixed drug abuse Home Medications duloxetine 100 mg PO DAILY 10/08/13 [History Last Taken 12/24/13] topiramate 25 mg PO BID 12/24/13 [History Last Taken 12/24/13] zolpidem 5 mg PO QHS 12/24/13 [History Last Taken 12/23/13] ferrous sulfate 325 mg PO DAILY 02/09/19 [History Last Taken Unknown] hydroxyzine HCl 25 mg PO PRN PRN 02/09/19 [History Last Taken Unknown] loperamide 2 mg PO Q4H PRN PRN #30 cap 02/09/19 [Rx Last Taken Unknown] ondansetron 4 mg PO Q8H PRN PRN #10 tab 02/09/19 [Rx Last Taken Unknown] aripiprazole 10 mg tablet 15 mg PO QHS tab 02/20/19 [History Last Taken Unknown] desvenlafaxine 100 mg tablet,extended release 24 hour 100 mg PO DAILY 02/20/19 [History Last Taken Unknown] gabapentin 300 mg capsule 300 mg PO DAILY 02/20/19 [History Last Taken Unknown] norethindrone (contraceptive) 0.35 mg tablet 0.35 mg PO QDAY #84 tab 02/28/19 [Rx Last Taken Unknown] albuterol sulfate 1 - 2 puff INHALATION Q4H PRN PRN 06/11/19 [History Last Taken Unknown] prednisone 60 mg PO DAILY #12 tab 06/11/19 [Rx Last Taken Unknown] ibuprofen 800 mg PO Q8H PRN #30 tab 06/12/21 [Rx Last Taken Unknown] levofloxacin 750 mg PO DAILY #7 tab 06/12/21 [Rx Last Taken Unknown] metronidazole 500 mg PO TID #21 tab 06/12/21 [Rx Last Taken Unknown] Allergy/AdvReac Type Severity Reaction Status Date / Time bupropion HCl Allergy SEIZURES Verified 06/29/21 20:17 [From Wellbutrin] codeine Allergy Rash Verified 06/29/21 20:17 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, marijuana, heroin and methamphetamine seatbelt use: always do you feel safe at home: Yes ROS ROS ED Constitutional Constitutional ED: Reports other Details: Lightheaded this was standing ; Denies chills, fever(s), subjective, sweats or weight loss ENT ENT ED: Denies ear pain, rhinorrhea or sore throat Cardiovascular Cardiovascular: Denies chest pain, orthopnea, palpitations, paroxysmal nocturnal dyspnea or racing heartbeat Respiratory/Chest Respiratory/Chest: Reports cough; Denies dyspnea, dyspnea on exertion, orthopnea, paroxysmal nocturnal dyspnea or sputum Gastrointestinal Gastrointestinal: Reports abdominal pain and diarrhea; Denies constipation, nausea or vomiting Genitourinary Genitourinary ED: Denies dysuria, hematuria or urinary frequency Musculoskeletal Musculoskeletal: Denies arthralgias, back pain, myalgias or neck pain Integumentary Denies rash Neurologic Neurologic: Reports weakness; Denies headache(s) or paresthesias Psychiatric Psychiatric: Reports depression; Denies anxiety or suicidal thoughts Endocrine Endocrinology: Denies polydipsia, polyphagia or polyuria EXAM Physical Exam Const Vital Signs: 06/29/21 20:15 06/29/21 23:52 Temperature 99.2 F H Temperature Source Temporal Pulse Rate 79 88 Respiratory Rate 15 18 Blood Pressure 141/89 H 140/78 H Blood Pressure Mean 106 98 Pulse Ox 99 98 Oxygen Delivery Method Room Air Room Air Positive well nourished, well developed and obese General Appearance ED: well developed and NAD; Negative for pallor Nutritional Appearance: obese HEENT Reports TM's clear and dry mucous membranes normocephalic and atraumatic Tympanic Membrane ED: Yes TM's clear Mouth ED: Yes dry mucous membranes Mouth: dry mucous membranes Eyes PERRL and EOMs intact bilaterally General Eye ED: Negative for pale conjunctiva or scleral icterus Neck no lymphadenopathy, supple and no JVD General: Negative for tenderness Resp normal respiratory effort Cardio regular rate, regular rhythm, S1 normal heart sound, S2 normal heart sound and no murmurs GI non-distended and no masses; Negative for non-tender Inspection: Negative for abdominal distention Auscultation: hypoactive bowel sounds; Negative for normoactive bowel sounds or hyperactive bowel sounds Palpation: soft and tender LLQ and RLQ; Negative for guarding, rigid, hepatomegaly, splenomegaly, mass, pulsatile mass or rebound tenderness present Back/Spine no CVA tenderness Lumbar Spine / Lower Back: Negative for lumbar spinal tenderness Extremity full ROM General Extremety ED: Negative for edema or tenderness General Extremity: Negative for edema Neuro CN's II-XII intact bilaterally and moves all extremities Sensorium / Orientation: alert, oriented to person, oriented to place and oriented to time Psych Mood & Affect: depressed Skin no wounds General Skin Exam: Negative for jaundice or pallor Lesions: no lesions Rashes: no rashes MDM MDM MDM Narrative Medical decision making narrative: With generalized weakness vague symptoms this may represent Covid. Blood work was ordered per nurse protocol. Clinically she appears dehydrated. 1 L of normal saline was ordered. Bentyl was ordered for the pain as well as Imodium. Lab Data Attestation: I reviewed the patient's lab results. Lab results narrative: CBC and differential are normal. Comprehensive metabolic panel is remarkable for elevated AST and ALT which was elevated on prior labs. Urine reveals a contaminated specimen with no bacteria. Suspect patient's abdominal pain is due to the diarrhea which is viral in etiology. Labs: Laboratory Results - last 24 hr 06/29/21 06/29/21 06/29/21 20:35 20:35 22:58 WBC 5.2 RBC 4.20 Hgb 11.7 L Hct 37.3 MCV 88.8 MCH 27.9 MCHC 31.4 L RDW Std Deviation 52.3 H RDW Coeff of Katalina 16.2 H Plt Count 90 L MPV 11.2 Immature Gran % (Auto) 0.200 Neut % (Auto) 56.3 Lymph % (Auto) 32.9 [place] % (Auto) 7.7 Eos % (Auto) 2.5 Baso % (Auto) 0.4 Absolute Neuts (auto) 2.9 Absolute Lymphs (auto) 1.71 Nucleated RBC % 0 Platelet Estimate MOD DEC RBC Morphology NORM C+C Sodium 139 Potassium 4.4 Chloride 112 H Carbon Dioxide 23.0 Anion Gap 4 L BUN 6 L Creatinine 0.89 Estim Creat Clear Calc 61.80 Est GFR (MDRD) Af Amer 88 Est GFR (MDRD) Non-Af 72 BUN/Creatinine Ratio 6.8 L Glucose 160 H Calcium 9.3 Total Bilirubin 1.10 H AST 236 H ALT 160 H Alkaline Phosphatase 181 H Total Protein 8.7 H Albumin 3.0 L Globulin 5.7 H Albumin/Globulin Ratio 0.5 L Urine Color Yellow Urine Clarity Sl. Cloudy Urine pH 5.0 Ur Specific [place] 1.025 Urine Protein 15 H Urine Glucose (UA) 100 H Urine Ketones Negative Urine Occult Blood 50 H Urine Nitrite Negative Urine Bilirubin Negative Urine Urobilinogen 1 H Ur Leukocyte Esterase 25 H Urine RBC 0-5 SEEN Urine WBC 0-5 SEEN Ur Squamous Epith Cells 10-25 SEEN Amorphous Sediment 1+ URATE Urine Bacteria 0 SEEN Urine Mucus 0 SEEN Covid test was negative. Discharge Plan Triage Chief Complaint: Abd Pain ED Provider: Shon Quintero Dx/Rx/DC Orders Clinical Impression: Diarrhea, Abdominal pain, Mild dehydration Instructions: Treating Diarrhea, Dehydration Prescriptions: No Action gabapentin 300 mg capsule 300 mg PO DAILY RF: 0 desvenlafaxine 100 mg tablet extended release 24hr 100 mg PO DAILY RF: 0 duloxetine 20 MG capsule 100 mg PO DAILY RF: 0 aripiprazole 10 mg tablet 15 mg PO QHS RF: 0 topiramate 25 MG tablet 25 mg PO BID RF: 0 zolpidem 12.5 MG tablet,ext release multiphase 5 mg PO QHS RF: 0 ferrous sulfate 325 MG tablet 325 mg PO DAILY RF: 0 hydroxyzine HCl 25 MG tablet 25 mg PO PRN PRN (Reason: Anxiety) RF: 0 ondansetron 4 MG tablet 4 mg PO Q8H PRN PRN (Reason: Nausea) Qty: 10 RF: 0 loperamide 2 MG capsule 2 mg PO Q4H PRN PRN (Reason: Diarrhea) Qty: 30 RF: 0 albuterol sulfate 1 PUFF inhaler 1 - 2 puff inhalation Q4H PRN PRN (Reason: Sob &/Or Wheezing) RF: 0 prednisone 20 MG tablet 60 mg PO DAILY Qty: 12 RF: 0 levofloxacin 750 mg tablet 750 mg PO DAILY Qty: 7 RF: 0 metronidazole 500 mg tablet 500 mg PO TID Qty: 21 RF: 0 ibuprofen 800 mg tablet 800 mg PO Q8H PRN (Reason: pain) Qty: 30 RF: 0 norethindrone (contraceptive) [Carmen] 0.35 mg tablet 0.35 mg PO QDAY Qty: 84 RF: 4 Primary Care Provider: Ang Acosta Referrals: Ang Acosta MD [Primary Care Provider] - 3-5 Days if not improving Activity Restrictions/Additional Instructions: 1. Drink plenty of fluids 2. Take Imodium for diarrhea Disposition Disposition: Home, Self Care
[2021-06-29 23:04] LABS: Bacteria 0 SEEN /hpf (None Seen); Mucous, Urine 0 SEEN /hpf (<or=2+)
[2021-06-29 23:10] LABS: Color, Urine Yellow (Yellow); Glucose, Dipstick 100 mg/dl (Normal); Ketone-Dipstick Negative (Negative); Leukocyte Esterase-Dipstick 25 /ul (Negative); Nitrite-Dipstick Negative (Negative); Occult Blood-Urine 50 /ul (Negative); Protein-Dipstick 15 mg/dl (Negative); Specific Gravity, Urine 1.025 (1.002-1.030); Urine Bilirubin Dipstick Negative (Negative); Urine Clarity Sl. Cloudy (Clear); Urine Urobilinogen 1 mg/dl (Normal)
[2021-06-29 23:16] LABS: Amorphous Sediment 1+ URATE; Red Blood Cells-Urine 0-5 SEEN /hpf (0-5); Squamous Epithelial Cells - UA 10-25 SEEN /hpf (5-10); White Blood Cells 0-5 SEEN /hpf (0-5)
[2021-06-29] MEDS: Loperamide 2 MG Capsule 4 MG PO (23:47)
[2021-06-29] MEDS: Dicyclomine 10 MG Capsule 20 MG PO (23:47)
[2021-06-29 23:52] VITALS: BP 140/78; PULSE 88; RESP 18; O2SAT 98
== END 2021-06-30 00:40 | disposition home or self-care (01) ==
PROVIDERS: Emergency Provider Emergency Medicine; PCP Family Medicine
DX: R19.7 Diarrhea, unspecified (principal); E86.0 Dehydration; Z20.822 Contact with and (suspected) exposure to COVID-19; R10.9 Unspecified abdominal pain; R05.9 Cough, unspecified; K64.9 Unspecified hemorrhoids; F32.9 Major depressive disorder, single episode, unspecified; F41.9 Anxiety disorder, unspecified; E66.9 Obesity, unspecified; F17.210 Nicotine dependence, cigarettes, uncomplicated; Z78.0 Asymptomatic menopausal state; Z79.890 Hormone replacement therapy; Z79.899 Other long term (current) drug therapy; Z86.19 Personal history of other infectious and parasitic diseases
CPT/HCPCS: 80053; 81001; 85025; 87426; 99284

== ENCOUNTER 2022-05-15 19:32 | Emergency (ER) | payer MEDICAID, SELFPAY ==
[2022-05-15 19:35] VITALS: BP 131/89; PULSE 81; RESP 15; TEMP 36.9; O2SAT 99; BMI 33.5
--- NOTE | 2022-05-15 19:52 | EX.ED.DYSGE1 ---
HPI History of Present Illness Chief Complaint: Wound Check Informant: patient Onset/Context/Timing Onset: Days Context: Gradual Onset Timing: Continuous Current Severity: Mild Maximum Severity: Mild Narrative Narrative: 46-year-old female history hepatitis C, anxiety, drug abuse, kidney stones. Says that she is picking at her chin it became infected she was seen in urgent care told it was MRSA was placed on doxycycline for 5 days. Symptoms not improved. She denies any pus or any significant discharge. Otherwise she denies any nausea vomiting or fever. Prior similar symptoms: Yes Recent Illness/Hospitalization: No [facility] Medical History Acute insomnia Anxiety Depression Hepatitis C infection History of mixed drug abuse Home Medications duloxetine 20 mg capsule,delayed release 100 mg PO DAILY 10/08/13 [History Last Taken 12/24/13] topiramate 25 mg tablet 25 mg PO BID 12/24/13 [History Last Taken 12/24/13] zolpidem 12.5 mg tablet,extended release,multiphase 5 mg PO QHS 12/24/13 [History Last Taken 12/23/13] ferrous sulfate 325 mg (65 mg iron) tablet 325 mg PO DAILY 02/09/19 [History Last Taken Unknown] hydroxyzine HCl 25 mg tablet 25 mg PO PRN PRN Anxiety 02/09/19 [History Last Taken Unknown] loperamide 2 mg capsule 2 mg PO Q4H PRN PRN Diarrhea #30 caps 02/09/19 [Rx Last Taken Unknown] ondansetron 4 mg disintegrating tablet 4 mg PO Q8H PRN PRN Nausea #10 tabs 02/09/19 [Rx Last Taken Unknown] aripiprazole 10 mg tablet 15 mg PO QHS 02/20/19 [History Last Taken Unknown] desvenlafaxine 100 mg tablet,extended release 24 hour 100 mg PO DAILY 02/20/19 [History Last Taken Unknown] gabapentin 300 mg capsule 300 mg PO DAILY 02/20/19 [History Last Taken Unknown] norethindrone (contraceptive) 0.35 mg tablet (Carmen) 0.35 mg PO QDAY #84 tabs 02/28/19 [Rx Last Taken Unknown] albuterol sulfate 90 mcg/actuation aerosol inhaler 1 - 2 puff inhalation Q4H PRN PRN Sob &/Or Wheezing 06/11/19 [History Last Taken Unknown] prednisone 20 mg tablet 60 mg PO DAILY #12 tabs 06/11/19 [Rx Last Taken Unknown] ibuprofen 800 mg tablet 800 mg PO Q8H PRN pain #30 tabs 06/12/21 [Rx Last Taken Unknown] levofloxacin 750 mg tablet 750 mg PO DAILY #7 tabs 06/12/21 [Rx Last Taken Unknown] metronidazole 500 mg tablet 500 mg PO TID #21 tabs 06/12/21 [Rx Last Taken Unknown] cephalexin 500 mg capsule 500 mg PO Q6H 10 days #40 caps 05/15/22 [Rx Last Taken Unknown] sulfamethoxazole 800 mg-trimethoprim 160 mg tablet (Bactrim DS) 1 tab PO BID 10 days #20 tabs 05/15/22 [Rx Last Taken Unknown] Allergy/AdvReac Type Severity Reaction Status Date / Time bupropion HCl Allergy SEIZURES Verified 05/15/22 19:34 [From Wellbutrin] codeine Allergy Rash Verified 05/15/22 19:34 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, marijuana, heroin and methamphetamine seatbelt use: always do you feel safe at home: Yes ROS ROS ED ROS Narrative Denies. Review of Systems ROS Unobtainable: Denies due to encephalopathy Constitutional Constitutional ED: Denies chills or fever(s) Eyes Eyes: Denies blurry vision ENT ENT ED: Denies ear pain Cardiovascular Cardiovascular: Denies chest pain Respiratory/Chest Respiratory/Chest: Denies cough Gastrointestinal Gastrointestinal: Denies abdominal pain Genitourinary Genitourinary ED: Denies dysuria or hematuria Musculoskeletal Musculoskeletal: Denies arthralgias Integumentary Reports rash; Denies abscess Neurologic Neurologic: Denies headache(s) Psychiatric Psychiatric: Denies anxiety Endocrine Endocrinology: Denies cold intolerance Hematologic/Lymphatic Hematologic/Lymphatic: Reports none Allergic/Immunologic Allergic/Immunologic ED: Denies mouth swelling or tongue swelling EXAM Physical Exam Narrative Exam Narrative: 46-year-old female no acute distress vital signs stable afebrile. HEENT exam she does not have any teeth. Mucous membranes are moist and pink. Chin there is a area of a open wound that is got redness around it. There is no lymphadenopathy in her neck. No apparent discharge. No fluctuance or abscess. This does look infected to small area approximately 1 to 2 inches in diameter. Lungs are clear. Heart regular rhythm. Abdomen soft nontender. Patient moving all 4 extremities. Const Vital Signs: 05/15/22 19:35 Temperature 98.4 F Temperature Source Temporal Pulse Rate 81 Respiratory Rate 15 Blood Pressure 131/89 H Blood Pressure Mean 103 Pulse Ox 99 Oxygen Delivery Method Room Air Positive well nourished, well developed and obese; Negative for cachectic, contractures or unkempt General Appearance ED: well developed and NAD; Negative for unkempt, cachectic, contractures, cyanotic or diaphoretic Nutritional Appearance: obese; Negative for cachectic HEENT Reports moist mucous membranes HEENT Narrative: Chin wound looks infected. Negative for trauma Eyes PERRL and EOMs intact bilaterally General Eye ED: Negative for pale conjunctiva or scleral icterus Neck no lymphadenopathy, supple and no JVD General: Negative for tenderness Lymph Lymphatic: Negative for other Chest Wall inspection of chest normal and palpation of chest normal Chest: Negative for other Resp normal respiratory effort and clear to auscultation bilaterally Effort and Inspection: Negative for retractions Auscultation: Negative for rales, rhonchi or wheezes Cardio regular rate, regular rhythm, S1 normal heart sound, S2 normal heart sound and no murmurs Palpation: Negative for palpable S3 Rate: Negative for bradycardia Rhythm: Negative for abnormal rhythm GI normal to inspection, nondistended, normoactive bowel sounds, non-tender, non-distended and no masses; Negative for hepatosplenomegaly Inspection: Negative for abdominal distention Auscultation: normoactive bowel sounds Palpation: soft and tender; Negative for guarding, splenomegaly or mass Extremity normal to inspection General Extremety ED: Negative for edema or tenderness General Extremity: Negative for edema Neuro oriented x3 Sensorium / Orientation: alert; Negative for orientation impaired, lethargic or stuporous Motor Exam: strength 5/5 throughout Psych mental status grossly normal Appearance: Negative for unkempt Attitude: No agitated Mood & Affect: Negative for depressed, anxious or tearful Skin No no rashes or lesions noted and No no wounds Skin Narrative: Chin wound looks infected. No pus. Currently no discharge. No fluctuance. Trauma: Negative for abrasion Wounds: wounds noted MDM MDM MDM Narrative Medical decision making narrative: Patient with a wound on her chin appears infected. Will be placed on Bactrim for 10 days and Keflex for 10 days. Follow-up with your primary care physician for reevaluation. Discharge Plan Triage Chief Complaint: Wound Check ED Provider: Timoteo Gardiner Dx/Rx/DC Orders Clinical Impression: Cellulitis, History of hepatitis, History of drug abuse Instructions: ED Cellulitis Prescriptions: New sulfamethoxazole-trimethoprim [Bactrim DS] 800-160 mg tablet 1 tab PO BID 10 Days Qty: 20 0RF cephalexin 500 mg capsule 500 mg PO Q6H 10 Days Qty: 40 0RF No Action gabapentin 300 mg capsule 300 mg PO DAILY desvenlafaxine 100 mg tablet extended release 24hr 100 mg PO DAILY duloxetine 20 MG capsule 100 mg PO DAILY Label Comments: DEPRESSION aripiprazole 10 mg tablet 15 mg PO QHS Label Comments: DEPRESSION topiramate 25 MG tablet 25 mg PO BID Label Comments: APPETITE CONTROL zolpidem 12.5 MG tablet,ext release multiphase 5 mg PO QHS Label Comments: SLEEP ferrous sulfate 325 MG tablet 325 mg PO DAILY hydroxyzine HCl 25 MG tablet 25 mg PO PRN PRN (Reason: Anxiety) ondansetron 4 MG tablet 4 mg PO Q8H PRN PRN (Reason: Nausea) Qty: 10 0RF loperamide 2 MG capsule 2 mg PO Q4H PRN PRN (Reason: Diarrhea) Qty: 30 0RF albuterol sulfate 1 PUFF inhaler 1 - 2 puff inhalation Q4H PRN PRN (Reason: Sob &/Or Wheezing) prednisone 20 MG tablet 60 mg PO DAILY Qty: 12 0RF Rx Instructions: With food levofloxacin 750 mg tablet 750 mg PO DAILY Qty: 7 0RF metronidazole 500 mg tablet 500 mg PO TID Qty: 21 0RF ibuprofen 800 mg tablet 800 mg PO Q8H PRN (Reason: pain) Qty: 30 0RF norethindrone (contraceptive) [Carmen] 0.35 mg tablet 0.35 mg PO QDAY Qty: 84 4RF Rx Instructions: start day 1 of menstrual cycle Primary Care Provider: Ang Acosta Referrals: Ang Acosta MD [Primary Care Provider] - 1 Week if not improving Activity Restrictions/Additional Instructions: Do not pick at the wound. Take both antibiotics the Bactrim 1 pill twice a day and Keflex 1 pill 4 times a day till gone. Follow-up with your doctor if not improving. Disposition Disposition: Home, Self Care
[2022-05-15] MEDS: Smz/Tmp Ds Tablet 1 TABLET PO (19:57)
[2022-05-15] MEDS: Cephalexin 250 MG Capsule 500 MG PO (19:57)
== END 2022-05-15 20:01 | disposition home or self-care (01) ==
PROVIDERS: Emergency Provider Emergency Medicine; PCP Family Medicine; Visit Provider Emergency Medicine
DX: L03.211 Cellulitis of face (principal); F19.11 Other psychoactive substance abuse, in remission; B95.62 Methicillin resistant Staphylococcus aureus infection as the cause of diseases classified elsewhere; F32.A Depression, unspecified; F41.9 Anxiety disorder, unspecified; F17.210 Nicotine dependence, cigarettes, uncomplicated; Z79.899 Other long term (current) drug therapy; Z86.19 Personal history of other infectious and parasitic diseases
CPT/HCPCS: 99283

== ENCOUNTER 2022-05-19 17:08 | Inpatient (IN) | payer MEDICAID, SELFPAY ==
[2022-05-19 17:09] VITALS: BP 136/107; PULSE 102; RESP 14; TEMP 36.6; O2SAT 96; BMI 34.7
--- NOTE | 2022-05-19 17:51 | EDS_ITS ---
HPI History of Present Illness Chief Complaint: Shortness of Breath Informant: patient and family Narrative Narrative: Here with daughter multiple complaints. Daughter forced patient to come for evaluation. She was seen 4 days ago for come for MRSA of her chin initially swab from urgent care. She is placed on Bactrim and Keflex 4 days ago states chin swelling is improving. For the past 2 days lower back pain nontraumatic reported increasing fatigue. Yesterday reported she was more forgetful and confused. She denies urinary symptoms. Cough for the past week. No fevers. History of hepatitis C reported signs of cirrhosis from this in the past. She i s at a [facility]. She is not on lactulose or rifaximin. Does have a history of drug use previously, states last IV use was 5 years ago when her daughter was 13. Denies any recent use. Denies history of kidney injury or gastric ulcers. Has had kidney stones in the past. Reporting pain to the left knee. No loss of bowel or bladder control. PFSH PFSH Medical History Acute insomnia Anxiety and depression Chronic anemia Cirrhosis of liver Hepatitis C Obesity Polysubstance abuse Thrombocytopenia Tobacco use Home Medications duloxetine 20 mg capsule,delayed release 100 mg PO DAILY 10/08/13 [History Last Taken 12/24/13] topiramate 25 mg tablet 25 mg PO BID 12/24/13 [History Last Taken 12/24/13] zolpidem 12.5 mg tablet,extended release,multiphase 5 mg PO QHS 12/24/13 [History Last Taken 12/23/13] ferrous sulfate 325 mg (65 mg iron) tablet 325 mg PO DAILY SUPPLEMENT 02/09/19 [History Last Taken Unknown] hydroxyzine HCl 25 mg tablet 25 mg PO PRN PRN Anxiety 02/09/19 [History Last Taken Unknown] loperamide 2 mg capsule 2 mg PO Q4H PRN PRN Diarrhea #30 caps 02/09/19 [Rx Last Taken Unknown] ondansetron 4 mg disintegrating tablet 4 mg PO Q8H PRN PRN Nausea #10 tabs 02/09/19 [Rx Last Taken Unknown] aripiprazole 10 mg tablet 15 mg PO QHS 02/20/19 [History Last Taken Unknown] desvenlafaxine 100 mg tablet,extended release 24 hour 100 mg PO DAILY 02/20/19 [History Last Taken Unknown] gabapentin 300 mg capsule 300 mg PO DAILY NERVE PAIN 02/20/19 [History Last Taken Unknown] norethindrone (contraceptive) 0.35 mg tablet (Carmen) 0.35 mg PO QDAY #84 tabs 02/28/19 [Rx Last Taken Unknown] albuterol sulfate 90 mcg/actuation aerosol inhaler 1 - 2 puff inhalation Q4H PRN PRN Sob &/Or Wheezing 06/11/19 [History Last Taken Unknown] prednisone 20 mg tablet 60 mg PO DAILY #12 tabs 06/11/19 [Rx Last Taken Unknown] ibuprofen 800 mg tablet 800 mg PO Q8H PRN pain #30 tabs 06/12/21 [Rx Last Taken Unknown] levofloxacin 750 mg tablet 750 mg PO DAILY #7 tabs 06/12/21 [Rx Last Taken Unknown] metronidazole 500 mg tablet 500 mg PO TID #21 tabs 06/12/21 [Rx Last Taken Unknown] cephalexin 500 mg capsule 500 mg PO Q6H 10 days #40 caps 05/15/22 [Rx Last Taken Unknown] sulfamethoxazole 800 mg-trimethoprim 160 mg tablet (Bactrim DS) 1 tab PO BID 10 days #20 tabs 05/15/22 [Rx Last Taken Unknown] Allergy/AdvReac Type Severity Reaction Status Date / Time bupropion HCl Allergy SEIZURES Verified 05/19/22 17:09 [From Wellbutrin] codeine Allergy Rash Verified 05/19/22 17:09 Family History (Updated 05/19/22 @ 21:[address] Sowmya Mirza MD) Mother Diabetes Father Cancer HX Throat CA. Surgical History H/O tubal ligation History of liver biopsy Social History (Updated 05/19/22 @ 21:[address] Sowmya Mirza MD) adopted: No household members: family housing: other number of children: 3 current occupational status: unemployed pets and animals: Yes history of recent travel: No sexually active: Yes Smoking Status: Current every day smoker tobacco type: cigarettes Smoking packs per day: 1 Smoking cigarettes per day: 20.0 Years smoked: 32 Smoking pack-years: 32.00 second hand exposure: Yes alcohol intake: current alcohol intake frequency: a few times a month substance use type: former substance user Date of last use: heroin, marijuana, heroin and methamphetamine seatbelt use: always do you feel safe at home: Yes ROS ROS ED Constitutional Constitutional ED: Denies chills, fever(s) or sweats Eyes Eyes: Denies change in vision ENT ENT ED: Denies dysphagia or sore throat Cardiovascular Cardiovascular: Denies chest pain, leg edema, palpitations or racing heartbeat Respiratory/Chest Respiratory/Chest: Reports cough; Denies dyspnea or dyspnea on exertion Gastrointestinal Gastrointestinal: Denies abdominal pain, diarrhea, nausea or vomiting Genitourinary Genitourinary ED: Denies dysuria, hematuria or urinary frequency Musculoskeletal Musculoskeletal: Reports back pain; Denies extremity pain or neck pain Integumentary Denies rash or wounds Neurologic Neurologic: Denies headache(s), paresthesias or weakness EXAM Physical Exam Const Vital Signs: 05/19/22 17:09 05/19/22 18:28 05/19/22 20:23 Temperature 98 F Temperature Source Temporal Pulse Rate 102 H 78 Respiratory Rate 14 15 Respiratory Effort Short of Breath Respiratory Depth Normal Respiratory Pattern Normal Blood Pressure 136/107 H 119/65 Blood Pressure Mean 116 83 Pulse Ox 96 98 Oxygen Delivery Method Room Air Room Air 05/19/22 20:50 Temperature Temperature Source Pulse Rate 70 Respiratory Rate 15 Respiratory Effort Respiratory Depth Respiratory Pattern Blood Pressure 118/52 L Blood Pressure Mean 74 Pulse Ox 95 Oxygen Delivery Method Room Air Positive well nourished and well developed Constitutional Narrative: Somnolent, awakens to questions appropriately, nontoxic. Alert and oriented x3. General Appearance ED: well developed and NAD HEENT Reports moist mucous membranes normocephalic and atraumatic Eyes PERRL, EOMs intact bilaterally and conjunctivae normal General Eye ED: Yes normal appearance of both eyes Neck no lymphadenopathy and supple General: Negative for tenderness Chest Wall Chest: Negative for tenderness Resp normal respiratory effort and normal air movement Effort and Inspection: symmetric chest movement; Negative for respiratory distress Cardio regular rate, regular rhythm and no murmurs Peripheral Pulses: pulses 2+ throughout GI normal to inspection, nondistended, normoactive bowel sounds and non-tender Palpation: Negative for guarding or rebound tenderness present Back/Spine no CVA tenderness Back/Spine Narrative: Straight leg test negative bilaterally, 1+ patellar reflex bilaterally. Extremity normal to inspection General Extremety ED: Negative for edema or tenderness General Extremity: Negative for edema Neuro oriented x3 and no sensory deficits noted Sensorium / Orientation: awake and alert Skin Skin Narrative: Scattered scabbing lower and upper extremities. No indurations or drainage. Chin examinations slight swelling with scabbing on the chin, no drainage. Nontender. Improved per report. MDM MDM MDM Narrative Medical decision making narrative: Patient vital signs are stable, she is alert and oriented x3 however somnolent with fatigue. Her facial swelling and cellulitis is improving per history. Work-up was initiated she was given fluids and Toradol for her pain symptoms. Laboratory work White count 7.8 hemoglobin 10.7 creatinine 1.2 slightly elevated from previous. She is on Bactrim. Daughter reports cirrhosis diagnosis approximately a year ago she is not on any medicines for this. Laboratory work notes transaminitis chronic from previous INR at 1.5. Ammonia level up at 83. I did order for lactulose. Urine noted blood however no infection. She has history of kidney stones. CT scan obtained notes nephrolithiasis no obstructive uropathy. Noted cirrhotic liver. Talk screen positive for THC amphetamines and ecstasy. Daughter does report she smokes marijuana, with ecstasy she reports she was at a fast 3 weeks ago and did take at that time. She is unclear on the amphetamines. She denies any recent IV drug history states last time was 5 years ago. Lower suspicion for spinal infection especially with a white count of 7.8. Somnolence and fatigue can be explained from her elevated ammonia. She is not baseline. She does not follow GI. Will discuss with hospitalist for admission. Chest x-ray reviewed by myself and read by radiology shows no acute process. Spoke with Dr. Mirza for admission. Lab Data Attestation: I reviewed the patient's lab results. Labs: Laboratory Results - last 24 hr 05/19/22 05/19/22 05/19/22 18:01 18:01 18:01 WBC 7.8 RBC 4.06 L Hgb 10.7 L Hct 34.6 L MCV 85.2 MCH 26.4 L MCHC 30.9 L RDW Std Deviation 60.3 H RDW Coeff of Katalina 19.5 H Plt Count 72 L MPV 11.4 Immature Gran % (Auto) 0.300 Neut % (Auto) 53.5 Lymph % (Auto) 34.4 Hale % (Auto) 8.1 Eos % (Auto) 3.1 Baso % (Auto) 0.6 Absolute Neuts (auto) 4.2 Absolute Lymphs (auto) 2.67 Nucleated RBC % 0 PT 17.5 H INR 1.5 Sodium 140 Potassium 3.6 Chloride 112 H Carbon Dioxide 20.0 L Anion Gap 8 BUN 13 Creatinine 1.21 H Estim Creat Clear Calc 44.97 Est GFR (MDRD) Af Amer 61 Est GFR (MDRD) Non-Af 50 L BUN/Creatinine Ratio 10.7 Glucose 108 H Calcium 9.2 Total Bilirubin 1.00 Direct Bilirubin 0.49 H AST 140 H ALT 63 H Alkaline Phosphatase 144 H Ammonia Total Protein 7.9 Albumin 2.7 L Globulin 5.2 H Urine Color Urine Clarity Urine pH Ur Specific Benedicta Urine Protein Urine Glucose (UA) Urine Ketones Urine Occult Blood Urine Nitrite Urine Bilirubin Urine Urobilinogen Ur Leukocyte Esterase Urine RBC Urine WBC Ur Squamous Epith Cells Calcium Oxalate Crystal Urine Bacteria Hyaline Casts Urine Mucus Urine Opiates Screen Urine Methadone Screen Ur Barbiturates Screen Ur Phencyclidine Scrn Ur Amphetamines Screen MDMA (Ecstasy) Screen U Benzodiazepines Scrn Urine Cocaine Screen U Cannabinoids Screen Ur Drug Screen Comment 05/19/22 05/19/22 05/19/22 18:01 20:15 20:15 WBC RBC Hgb Hct MCV MCH MCHC RDW Std Deviation RDW Coeff of Katalina Plt Count MPV Immature Gran % (Auto) Neut % (Auto) Lymph % (Auto) Hale % (Auto) Eos % (Auto) Baso % (Auto) Absolute Neuts (auto) Absolute Lymphs (auto) Nucleated RBC % PT INR Sodium Potassium Chloride Carbon Dioxide Anion Gap BUN Creatinine Estim Creat Clear Calc Est GFR (MDRD) Af Amer Est GFR (MDRD) Non-Af BUN/Creatinine Ratio Glucose Calcium Total Bilirubin Direct Bilirubin AST ALT Alkaline Phosphatase Ammonia 83.0 H Total Protein Albumin Globulin Urine Color Josiane Urine Clarity Cloudy Urine pH 6.0 Ur Specific Benedicta 1.025 Urine Protein 30 H Urine Glucose (UA) Normal Urine Ketones 5 H Urine Occult Blood 250 H Urine Nitrite Negative Urine Bilirubin 1 H Urine Urobilinogen 4 H Ur Leukocyte Esterase 25 H Urine RBC > 100 SEEN Urine WBC 0-5 SEEN Ur Squamous Epith Cells 0-5 SEEN Calcium Oxalate Crystal 1+ Urine Bacteria 0 SEEN Hyaline Casts 0-5 SEEN Urine Mucus 0 SEEN Urine Opiates Screen NEGATIVE Urine Methadone Screen NEGATIVE Ur Barbiturates Screen NEGATIVE Ur Phencyclidine Scrn NEGATIVE Ur Amphetamines Screen POSITIVE H MDMA (Ecstasy) Screen POSITIVE H U Benzodiazepines Scrn NEGATIVE Urine Cocaine Screen NEGATIVE U Cannabinoids Screen POSITIVE H Ur Drug Screen Comment Radiography Diagnostic Testing: Clinical Impression(s) from Imaging Studies Chest X-Ray 05/19/22 18:09 IMPRESSION: No acute cardiopulmonary disease or major interval change. Electronically Signed: Dustin Cunningham DO at 18:24 EDT Reading Location ID and State: [facility] / [place] Tel [phone], Service support , Abdomen/Pelvis CT 05/19/22 20:06 IMPRESSION: 1. Cirrhotic liver with splenomegaly. 2. Resolution of the mild mesenteric inflammatory change present on the prior study. 3. Stable renal calculi. 4. No other major interval change. Electronically Signed: Dustin Cunningham DO at 21:10 EDT Reading Location ID and State: [address] [place] [address] Tel [phone], Service support , Discharge Plan Dx/Rx/DC Orders Clinical Impression: Hepatitis C, chronic, Cellulitis, Acute hepatic encephalopathy, Hx of cirrhosis, Acute renal insufficiency, Polysubstance abuse Disposition Disposition: Acute Care Hospital [facility] Discharge Date/Time: 05/19/22 22:01
[2022-05-19] MEDS: 0.9% Normal Saline 1,000 ML 1000 ML IV (18:03)
[2022-05-19] MEDS: Ketorolac 15 MG/ML Vial IV (18:03)
--- NOTE | 2022-05-19 18:09 | RAD_ITS ---
STUDY: X-RAY CHEST REASON FOR EXAM: Female, 46 years old. Cough and lower back pain beginning yesterday. TECHNIQUE: PA and lateral views of the chest. COMPARISON: 06/11/2019. FINDINGS: The lungs are clear and expanded. There is no demonstrated pleural abnormality. Normal size heart. Normal mediastinum and cal. Normal visualized pulmonary arteries. Normal visualized aortic arch and descending thoracic aorta. Normal visualized thoracic spine. Normal visualized ribs, clavicles, and shoulders. There is no demonstrated abnormality of the visualized soft tissue structures of the upper abdomen. RAD/Chest PA and Lateral IMPRESSION: No acute cardiopulmonary disease or major interval change. Electronically Signed: uDstin Cunningham DO at 18:24 EDT ,
[2022-05-19 18:37] LABS: Absolute Lymphocyte Count 2.67 X10^3/uL (0.83-4.51); Absolute Neutrophil Count 4.2 X10^3/uL (2.0-7.7); Basophil# 0.05 X10^3/uL; Basophil% 0.6 % (0-1); Eosinophil# 0.24 X10^3/uL; Eosinophils% 3.1 % (0-5); Hematocrit 34.6 % (37-47); Hemoglobin 10.7 g/dL (12.0-15.0); Lymphocyte # 2.67 X10^3/ul (0.83-4.51); Lymphocyte % 34.4 % (19-41); Mean Corp Hgb Conc 30.9 g/dL (32-36); Mean Corpuscular Hgb 26.4 pg (27.0-32.0); Mean Corpuscular Volume 85.2 fL (81-99); Mean Platelet Vol. 11.4 fl (6.2-12.0); Monocyte# 0.63 X10^3/uL; Monocyte% 8.1 % (0-10); NRBC Flagged by Analyzer 0 % (0-5); Neutrophil # 4.16 X10^3/uL (2.7-7.7); Neutrophil % 53.5 % (47-70); POSITIVE COUNT YES; RBC Distribution Width CV 19.5 % (11.6-14.6); RBC Distribution Width SD 60.3 fl (35.1-43.9); Red Blood Count 4.06 M/mm3 (4.2-5.4); White Blood Count 7.8 K/mm3 (4.4-11.0)
[2022-05-19 18:47] LABS: International Normalized Ratio 1.5; Prothrombin Time (Protime)PT. 17.5 SECONDS (11.7-14.9)
[2022-05-19 18:52] LABS: AST(SGOT) 140 U/L (15-37); Alanine Aminotransfer ALT/SGPT 63 U/L (13-56); Albumin, Serum 2.7 g/dL (3.2-5.0); Alkaline Phosphatase 144 U/L (45-117); Anion Gap 8 (5-15); BUN 13 mg/dL (7-18); BUN/Creat Ratio 10.7 RATIO (10-20); Bilirubin, Direct 0.49 mg/dL (0.00-0.30); Calcium,Total 9.2 mg/dL (8.5-10.1); Chloride 112 mmol/L (98-107); Creatinine, Serum 1.21 mg/dL (0.55-1.02); EST Glomerular Filtration Rate 50 mL/min (>60); Est Glom Filt Rate - Afr Amer 61 mL/min (>60); Estimated Creatinine Clearance 44.97 ml/min; Globulin 5.2 g/dL (2.2-4.2); Glucose 108 mg/dL (74-106); Potassium 3.6 mmol/L (3.5-5.1); Protein, Total 7.9 g/dL (6.4-8.2); Sodium Level 140 mmol/L (136-145)
[2022-05-19 19:30] LABS: Differential Indicated SCAN CRITERIA MET
[2022-05-19 19:37] LABS: Platelet Count 72 K/mm3 (150-450)
--- NOTE | 2022-05-19 20:06 | CT_ITS ---
STUDY: CT ABDOMEN AND PELVIS WITHOUT CONTRAST REASON FOR EXAM: Female, 46 years old. Lower back pain. Shortness of breath and dizziness. History of hepatitis C and kidney stones. RADIATION DOSAGE (If Supplied By Facility): CTDIvol = ( 14.04 ) mGy, DLP = ( 740.09 ) mGycm TECHNIQUE: Transaxial images were obtained from the dome of the diaphragm to the symphysis pubis without oral contrast, and without intravenous contrast. Sagittal and coronal images were reconstructed. Individualized dose optimization techniques were used for this CT. COMPARISON: 06/12/2021. FINDINGS: Small calcified granuloma in the right middle lobe. Lungs are otherwise clear. The visualized portions of the heart are within normal limits. Cirrhotic appearing liver with prominent caudate lobe and nodular surface pattern. There is no focal mass. Normal gallbladder and extrahepatic biliary system. Splenomegaly. There is a small calcification in the uncinate process of the otherwise normal pancreas. Normal bilateral adrenal glands. The right kidney is of normal size, contour and density. There are at least 2 renal calculi. The largest measures 6 x 4 x 3 mm. There is no hydronephrosis. Normal right ureter. The left kidney is normal in size. There is a single nonobstructing calculus lower pole calyx measuring 4 mm. No hydronephrosis. Normal left ureter. Normal visualized stomach. Normal small intestine. Normal colon. The appendix is visualized and appears normal. Normal abdominal aorta. Normal inferior vena cava. Normal retroperitoneum. Normal urinary bladder. Normal uterus. Bilateral tubal ligation clips. Normal adnexa. No pelvic lymphadenopathy. No free air or free fluid is seen within the peritoneal cavity. Normal abdominal wall. There are diffuse degenerative changes of the visualized lumbar spine. CT/Abdomen/Pelvis without Cont IMPRESSION: 1. Cirrhotic liver with splenomegaly. 2. Resolution of the mild mesenteric inflammatory change present on the prior study. 3. Stable renal calculi. 4. No other major interval change. Electronically Signed: Dustin Cunningham DO at 21:10 EDT ,
[2022-05-19 20:23] VITALS: BP 119/65; PULSE 78; RESP 15; O2SAT 98
[2022-05-19 20:25] LABS: Bacteria 0 SEEN /hpf (None Seen); Mucous, Urine 0 SEEN /hpf (<or=2+)
[2022-05-19 20:33] LABS: Color, Urine Amber (Yellow); Glucose, Dipstick Normal (Normal); Ketone-Dipstick 5 mg/dl (Negative); Leukocyte Esterase-Dipstick 25 /ul (Negative); Nitrite-Dipstick Negative (Negative); Occult Blood-Urine 250 /ul (Negative); Protein-Dipstick 30 mg/dl (Negative); Specific Gravity, Urine 1.025 (1.002-1.030); Urine Clarity Cloudy (Clear); Urine Urobilinogen 4 mg/dl (Normal)
[2022-05-19] MEDS: Lactulose 20 GM/30 ML UDC PO ×2 (20:45→23:30)
[2022-05-19 20:50] VITALS: BP 118/52; PULSE 70; RESP 15; O2SAT 95
[2022-05-19 20:53] LABS: Urine Bilirubin Dipstick 1 mg/dL (Negative)
[2022-05-19 20:54] LABS: Calcium Oxalate Crystals Ur 1+ /hpf (<or=2+); Hyaline Cast 0-5 SEEN /lpf (0-5); Red Blood Cells-Urine > 100 SEEN /hpf (0-5); Squamous Epithelial Cells - UA 0-5 SEEN /hpf (5-10); White Blood Cells 0-5 SEEN /hpf (0-5)
[2022-05-19 20:59] LABS: Amphetamine Urine VISTA POSITIVE (<1000 ng/mL); Barbiturate Urine VISTA NEGATIVE (< 200 ng/mL); Benzodiazepine Urine VISTA NEGATIVE (< 200 ng/mL); Cocaine Urine VISTA NEGATIVE (< 300 ng/mL); Ecstacy Urine VISTA POSITIVE (< 500 ng/mL); Methadone Urine VISTA NEGATIVE (< 300 ng/mL); PCP Urine VISTA NEGATIVE (< 25 ng/mL); THC Urine VISTA POSITIVE (< 50 ng/mL); Vista UDS pH Range 5
--- NOTE | 2022-05-19 21:26 | PCM.HP.STD ---
HPI - General General Date of Admission: 05/19/22 Date of Service: 05/19/22 Chief Complaint: Confusion HPI Narrative The patient is a 46 y/o F w/ PMHx: Obesity, Chronic anemia/iron deficiency anemia, Anxiety and Depression, Chronic hepatitis C/cirrhosis with chronic LFT/Bilirubin elevations w/ Hx polysubstance abuse (heroin, cannabis, methampetamine), Tobacco use who presents to the [facility] ED on 05/19/22 with history of recent onset of skin infection on her chin with urgent care evaluation 4 days prior with growth of MRSA from a swab at urgent care with initial treatment Bactrim and Keflex with edema improvement with ongoing increased fatigue, lower back discomfort as well as increased confusion per family report with nonproductive cough as well as mild dyspnea noted for the past week. Patient follows with gastroenterology at the [facility] although not on any chronic regimen per her own/family admission and current list. Upon UDS discussions, patient notes she was recently at a festival where she used drugs but denies routine usage. Work-up in the ED included T 98, heart rate 102, BP 136/107--> 118/52 most recent repeat, respiratory rate 14, 96% on room air, CBC with WC 7.8, hemoglobin 10.7, MCV 85.2, platelets 72 without shift, coags PT 17.5, INR 1.5, CMP with chloride 112, 20, BUN/creatinine 13/1.21, glucose 108, total bilirubin 1.0, direct bilirubin 0.49, AST/LT 140/63, alk phos 144, ammonia 83, chest x-ray with no acute cardiopulmonary findings, rapid COVID antigen negative urinalysis with elevated specific gravity 1.025, protein 30, ketone 5, occult blood 250, negative nitrite, LE 25, urine RBCs greater than 100 with no marked urine bacteria, UDS with positive amphetamine, MDMA, cannabis, CT abdomen and pelvis with cirrhotic liver with splenomegaly, resolution of mild mesenteric inflammatory changes noted on prior study, stable renal calculi with no other major interval change or acute intra-abdominal finding. In the ED patient ministered normal saline bolus, Toradol 15 mg IV x1 as well as lactulose 20 g p.o. x1. PFSH Medical History Acute insomnia Anxiety and depression Chronic anemia Cirrhosis of liver Hepatitis C Obesity Polysubstance abuse Thrombocytopenia Tobacco use Home Medications duloxetine 20 mg capsule,delayed release 100 mg PO DAILY 10/08/13 [History Last Taken 12/24/13] topiramate 25 mg tablet 25 mg PO BID 12/24/13 [History Last Taken 12/24/13] zolpidem 12.5 mg tablet,extended release,multiphase 5 mg PO QHS 12/24/13 [History Last Taken 12/23/13] ferrous sulfate 325 mg (65 mg iron) tablet 325 mg PO DAILY 02/09/19 [History Last Taken Unknown] hydroxyzine HCl 25 mg tablet 25 mg PO PRN PRN Anxiety 02/09/19 [History Last Taken Unknown] loperamide 2 mg capsule 2 mg PO Q4H PRN PRN Diarrhea #30 caps 02/09/19 [Rx Last Taken Unknown] ondansetron 4 mg disintegrating tablet 4 mg PO Q8H PRN PRN Nausea #10 tabs 02/09/19 [Rx Last Taken Unknown] aripiprazole 10 mg tablet 15 mg PO QHS 02/20/19 [History Last Taken Unknown] desvenlafaxine 100 mg tablet,extended release 24 hour 100 mg PO DAILY 02/20/19 [History Last Taken Unknown] gabapentin 300 mg capsule 300 mg PO DAILY 02/20/19 [History Last Taken Unknown] norethindrone (contraceptive) 0.35 mg tablet (Carmen) 0.35 mg PO QDAY #84 tabs 02/28/19 [Rx Last Taken Unknown] albuterol sulfate 90 mcg/actuation aerosol inhaler 1 - 2 puff inhalation Q4H PRN PRN Sob &/Or Wheezing 06/11/19 [History Last Taken Unknown] prednisone 20 mg tablet 60 mg PO DAILY #12 tabs 06/11/19 [Rx Last Taken Unknown] ibuprofen 800 mg tablet 800 mg PO Q8H PRN pain #30 tabs 06/12/21 [Rx Last Taken Unknown] levofloxacin 750 mg tablet 750 mg PO DAILY #7 tabs 06/12/21 [Rx Last Taken Unknown] metronidazole 500 mg tablet 500 mg PO TID #21 tabs 06/12/21 [Rx Last Taken Unknown] cephalexin 500 mg capsule 500 mg PO Q6H 10 days #40 caps 05/15/22 [Rx Last Taken Unknown] sulfamethoxazole 800 mg-trimethoprim 160 mg tablet (Bactrim DS) 1 tab PO BID 10 days #20 tabs 05/15/22 [Rx Last Taken Unknown] Allergy/AdvReac Type Severity Reaction Status Date / Time bupropion HCl Allergy SEIZURES Verified 05/19/22 17:09 [From Wellbutrin] codeine Allergy Rash Verified 05/19/22 17:09 Family History (Updated 05/19/22 @ 21:[address] Sowmya Mirza MD) Mother Diabetes Father Cancer HX Throat CA. Surgical History H/O tubal ligation History of liver biopsy Social History (Updated 05/19/22 @ 21:[address] Sowmya Mirza MD) adopted: No household members: family housing: other number of children: 3 current occupational status: unemployed pets and animals: Yes history of recent travel: No sexually active: Yes Smoking Status: Current every day smoker tobacco type: cigarettes Smoking packs per day: 1 Smoking cigarettes per day: 20.0 Years smoked: 32 Smoking pack-years: 32.00 second hand exposure: Yes alcohol intake: current alcohol intake frequency: a few times a month substance use type: former substance user Date of last use: heroin, marijuana, heroin and methamphetamine seatbelt use: always do you feel safe at home: Yes ROS ROS Narrative Admission Review of Systems: CONSTITUTIONAL: No weight loss, fever, chills, + weakness or fatigue. HEENT: + See skin. Eyes: No visual loss, blurred vision, double vision or yellow sclerae. Ears, Nose, Throat: No hearing loss, sneezing, congestion, runny nose or sore throat. SKIN: + Several abrasions, scabs, recent cellulitis to the chin. CARDIOVASCULAR: No chest pain, chest pressure or chest discomfort, palpitations, edema, orthopnea, syncopal events. RESPIRATORY: + shortness of breath, cough without marked sputum, No wheezing, hemoptysis. GASTROINTESTINAL: + anorexia, No nausea, vomiting or diarrhea, abdominal pain, melena, BRBPR. GENITOURINARY: No dysuria, frequency, urgency or retention. NEUROLOGICAL: + Confusion/encephalopathy. No headache, dizziness, syncope, paralysis, ataxia, numbness or tingling in the extremities, focal weakness, change in bowel or bladder control, seizure. MUSCULOSKELETAL: + muscle, back pain, joint pain or stiffness. HEMATOLOGIC: + anemia, bleeding or bruising. LYMPHATICS: No enlarged nodes. No history of splenectomy. PSYCHIATRIC: + history of depression or anxiety. ENDOCRINOLOGIC: No reports of sweating, cold or heat intolerance. No polyuria or polydipsia. ALLERGIES: No history of asthma, hives, eczema or rhinitis. Vital Signs Vital Signs Vital Signs: 05/19/22 17:09 05/19/22 18:28 05/19/22 20:23 Temperature 98 F Temperature Source Temporal Pulse Rate 102 H 78 Respiratory Rate 14 15 Respiratory Effort Short of Breath Respiratory Depth Normal Respiratory Pattern Normal Blood Pressure 136/107 H 119/65 Blood Pressure Mean 116 83 Pulse Ox 96 98 Oxygen Delivery Method Room Air Room Air 05/19/22 20:50 Temperature Temperature Source Pulse Rate 70 Respiratory Rate 15 Respiratory Effort Respiratory Depth Respiratory Pattern Blood Pressure 118/52 L Blood Pressure Mean 74 Pulse Ox 95 Oxygen Delivery Method Room Air Weight Weight: 190 lb Body Mass Index (BMI) 34.7 Physical Exam Narrative Physical Examination: General: Awake, alert, oriented to self, place and some recent events, mental status improving but slow to answer and fatigued, remains cooperative, seated upright in ED bed, no acute distress. Skin: Normal color, normal turgor, no icterus, no cyanosis except for various staged scratched and scabbed regions to the extremities especially distally, chin with healing recent cellulitic region, scabs, no drainage. Patient actively itching the chin during evaluation causing bleeding and inflammation, discussed at length need to stop and dressing applied. HEENT: AT/NC, EOMI, PERRLA, mildly dry MM, no carotid bruits or JVD noted, see skin. Lungs: Diminished, greater bases, moderate effort, no rales, ronchi or wheezing. Heart: Mildly tachycardic with regular rhythm; no gallop, rub audible. Abdomen: Soft, NTTP, no rebound or guarding, no overt distention, distant BS, positive HM. Extremities: No cyanosis, no clubbing, see skin. Neurological: Patient awake, alert, oriented as noted, cognitive function improving, not baseline intact but suspect nearing; pupils equally reactive to light and accommodation, cranial nerves II-XII grossly normal, moving all 4 extremities, no focal deficits, strength moderately to severely decreased secondary to acute presentation. Psychiatric: Affect appears fatigued, flat, no acute evidence of depressive or anxiety feelings but does have underlying history. Results Lab / Micro Data Result Diagrams: 05/19/22 18:01 05/19/22 18:01 Labs: Laboratory Results - last 24 hr 05/19/22 18:01: WBC 7.8, RBC 4.06 L, Hgb 10.7 L, Hct 34.6 L, MCV 85.2, MCH 26.4 L, MCHC 30.9 L, RDW Std Deviation 60.3 H, RDW Coeff of Katalina 19.5 H, Plt Count 72 L, MPV 11.4, Immature Gran % (Auto) 0.300, Neut % (Auto) 53.5, Lymph % (Auto) 34.4, [place] % (Auto) 8.1, Eos % (Auto) 3.1, Baso % (Auto) 0.6, Absolute Neuts (auto) 4.2, Absolute Lymphs (auto) 2.67, Nucleated RBC % 0 05/19/22 18:01: PT 17.5 H, INR 1.5 05/19/22 18:01: Sodium 140, Potassium 3.6, Chloride 112 H, Carbon Dioxide 20.0 L, Anion Gap 8, BUN 13, Creatinine 1.21 H, Estim Creat Clear Calc 44.97, Est GFR (MDRD) Af Amer 61, Est GFR (MDRD) Non-Af 50 L, BUN/Creatinine Ratio 10.7, Glucose 108 H, Calcium 9.2, Total Bilirubin 1.00, Direct Bilirubin 0.49 H, AST 140 H, ALT 63 H, Alkaline Phosphatase 144 H, Total Protein 7.9, Albumin 2.7 L, Globulin 5.2 H 05/19/22 18:01: Ammonia 83.0 H 05/19/22 20:15: Urine Color Josiane, Urine Clarity Cloudy, Urine pH 6.0, Ur Specific [place] 1.025, Urine Protein 30 H, Urine Glucose (UA) Normal, Urine Ketones 5 H, Urine Occult Blood 250 H, Urine Nitrite Negative, Urine Bilirubin 1 H, Urine Urobilinogen 4 H, Ur Leukocyte Esterase 25 H, Urine RBC > 100 SEEN, Urine WBC 0-5 SEEN, Ur Squamous Epith Cells 0-5 SEEN, Calcium Oxalate Crystal 1+, Urine Bacteria 0 SEEN, Hyaline Casts 0-5 SEEN, Urine Mucus 0 SEEN 05/19/22 20:15: Urine Opiates Screen NEGATIVE, Urine Methadone Screen NEGATIVE, Ur Barbiturates Screen NEGATIVE, Ur Phencyclidine Scrn NEGATIVE, Ur Amphetamines Screen POSITIVE H, MDMA (Ecstasy) Screen POSITIVE H, U Benzodiazepines Scrn NEGATIVE, Urine Cocaine Screen NEGATIVE, U Cannabinoids Screen POSITIVE H, Ur Drug Screen Comment Micro: Microbiology 05/19/22 18:01 Nasal Secretion SARS-CoV-2 Antigen (Rapid) - Final Radiology Impression Chest X-Ray 05/19/22 18:09 IMPRESSION: No acute cardiopulmonary disease or major interval change. Electronically Signed: Dustin Cunningham DO at 18:24 EDT Reading Location ID and State: [facility] / [place] Tel [phone], Service support , Abdomen/Pelvis CT 05/19/22 20:06 IMPRESSION: 1. Cirrhotic liver with splenomegaly. 2. Resolution of the mild mesenteric inflammatory change present on the prior study. 3. Stable renal calculi. 4. No other major interval change. Electronically Signed: Dustin Cunningham DO at 21:10 EDT Reading Location ID and State: [address] [place] [address] Tel [phone], Service support , Assessment & Plan Assessment/Plan (1) Acute hepatic encephalopathy: (2) Hyperammonemia: PLAN: Plan The patient is a 46 y/o F w/ PMHx: Obesity, Chronic anemia/iron deficiency anemia, Anxiety and Depression, Chronic hepatitis C/cirrhosis with chronic LFT/Bilirubin elevations w/ Hx polysubstance abuse (heroin, cannabis, methampetamine), Tobacco use who presents to the [facility] ED on 05/19/22 with history of recent onset of skin infection on her chin with urgent care evaluation 4 days prior with growth of MRSA from a swab at urgent care with initial treatment Bactrim and Keflex with edema improvement with ongoing increased fatigue, lower back discomfort as well as increased confusion per family report with nonproductive cough as well as mild dyspnea noted for the past week. #1. Acute hepatic encephalopathy secondary to acute hyperammonia with underlying chronic hepatitis C with chronic LFT/bilirubin elevations complicated also by it #5 history of polysubstance abuse with concerning UDS, potential recurrent substance abuse: Will admit to medical surgical floor, maintain on fall and aspiration precautions, admission ammonia 83, will initiate chronic lactulose regimen with repeat level in a.m., admission total bilirubin 1, direct eleven 0.49, AST/ALT 140/63, alk phos 144, improved from prior labs noted, will trend CMP, continue patient home rifaximin regimen once clarified additional. Given patient cirrhotic liver history from polysubstance/IV drug abuse/hepatitis C would continue to strongly recommend avoidance of all alcohol use. #2. Dyspnea, mild cough, unclear specific etiology, possibly primarily secondary to #1: Chest x-ray without overt findings, rapid COVID antigen negative, to be cautious will request PCR and respiratory viral panel, repeat chest x-ray in a.m. to assure no evolving pneumonia however suspect likely presentation secondary to primarily #1. Procalcitonin level requested. #3. Mild acute renal insufficiency: Admission BUN/creat 13/1.21, prior baseline 0.8-1, will continue to just hydration as noted, repeat CMP in AM. #4. Recent facial cellulitis: Recent history of picking at her chin with onset of infection and cellulitis with urgent care evaluation with diagnosis of MRSA at that time placed on doxycycline however symptoms have not been improving with ED evaluation 05/15/2022, discharged on Keflex and Bactrim at that time, will cautiously continue to completion in addition to topical mupirocin and dressing to deter picking of the region. Will continue to monitor renal function given mild renal insufficiency with adjustment or alteration of regimen pending further labs. #5. History of polysubstance abuse: Patient with prior history of IV drug abuse with last usage 5 years prior to current presentation including heroin, methamphetamine, cannabis usage however UDS does have amphetamine, MDMA and cannabis and from current medications do not suspect these would have any overlap false positive on the urine drug screen but will further clarify with lab. Acute presentation likely secondary to primarily acute hepatic encephalopathy secondary to hyperammonia level but certainly could have abuse component. #6. Anxiety and depression: We will continue patient home duloxetine, desvenlafaxine, aripiprazole home regimen. Hold for sedation and additionally we will hold patient home zolpidem nightly regimen. #7. Chronic normocytic anemia/iron deficiency anemia: Admission hemoglobin 10.7, prior baseline 11.7 06/29/2021, will continue to trend, continue iron supplementation. #8. Chronic thrombocytopenia: Likely secondary to underlying liver disease, admission platelets 72, prior baseline 90-110, most recent 06/29/2021 platelets 90, will continue to trend. #9. Tobacco Abuse: Encouraged cessation, inpatient consultation per RT, NR if desired. #10. Obesity: Weight loss and lifestyle changes encouraged. #11. DVT prophylaxis: SCDs, defer chemoprophylaxis given mild thrombocytopenia. #12. CODE status: Patient does not have healthcare power of insurance defense attorney nor living will. Discussed CODE status at length including difference between FULL code, DNR-CCA and DNR-CC status. Following discussions about the differences in these status, requested Full Code status. Advanced Care Planning Face to Face Time: 16 minutes. Charges/Coding Visit Charges Inpatient E&M: 92898 Init Hosp L3 Procedures Hospitalists Procedures: 94520 Advncd Care Plan 30 Min
[2022-05-19 21:52] VITALS: BP 118/52; PULSE 70; RESP 15; TEMP 36.7; O2SAT 95
[2022-05-19 22:13] LABS: Magnesium 1.8 mg/dL (1.6-2.6); Phosphorus 3.1 mg/dL (2.5-4.9)
[2022-05-19 22:22] LABS: Procalcitonin 0.06 ng/mL (0.00-0.09)
[2022-05-19 22:23] VITALS: BMI 36.3
[2022-05-19 22:29] VITALS: BP 97/45; PULSE 73; RESP 18; TEMP 36.7; O2SAT 95
[2022-05-19] MEDS: 0.9% Saline Lock 10 ML Syringe IV (22:37)
[2022-05-19] MEDS: 0.9% Normal Saline 1,000 ML 100 ML IV (22:37)
[2022-05-19 23:15] VITALS: O2SAT 99
[2022-05-19] MEDS: Mupirocin Ointment 22gm Tube 1 APPLIC TOPICAL (23:30)
[2022-05-20 04:17] VITALS: BP 137/74; PULSE 64; RESP 18; TEMP 36.9; O2SAT 99
[2022-05-20 05:46] LABS: Absolute Lymphocyte Count 2.74 X10^3/uL (0.83-4.51); Absolute Neutrophil Count 3.8 X10^3/uL (2.0-7.7); Basophil# 0.03 X10^3/uL; Basophil% 0.4 % (0-1); Eosinophil# 0.22 X10^3/uL; Lymphocyte # 2.74 X10^3/ul (0.83-4.51); Lymphocyte % 37.1 % (19-41); Mean Corp Hgb Conc 31.4 g/dL (32-36); Mean Corpuscular Hgb 26.9 pg (27.0-32.0); Mean Corpuscular Volume 85.6 fL (81-99); Mean Platelet Vol. 10.4 fl (6.2-12.0); Monocyte# 0.59 X10^3/uL; NRBC Flagged by Analyzer 0 % (0-5); Neutrophil # 3.79 X10^3/uL (2.7-7.7); Neutrophil % 51.4 % (47-70); POSITIVE COUNT YES; Platelet Count 68 K/mm3 (150-450); RBC Distribution Width CV 19.2 % (11.6-14.6); RBC Distribution Width SD 59.7 fl (35.1-43.9); Red Blood Count 4.09 M/mm3 (4.2-5.4); White Blood Count 7.4 K/mm3 (4.4-11.0)
--- NOTE | 2022-05-20 05:55 | RAD_ITS ---
STUDY: X-RAY CHEST REASON FOR EXAM: Female, 46 years old. Dyspnea, cough TECHNIQUE: Single AP portable view of the chest. COMPARISON: Comparison is made with prior study 05/19/2022. FINDINGS: The lungs are clear and expanded. There is no demonstrated pleural abnormality. Normal size heart. Normal mediastinum and cal. Normal visualized pulmonary arteries. Normal visualized aortic arch and descending thoracic aorta. Normal visualized thoracic spine. Normal visualized ribs, clavicles, and shoulders. There is no demonstrated abnormality of the visualized soft tissue structures of the upper abdomen. RAD/Chest 1 View (Portable) IMPRESSION: Normal x-ray examination of the chest. Electronically Signed: Isidro Burnett MD at 8:46 EDT ,
[2022-05-20] MEDS: Lactulose 20 GM/30 ML UDC PO ×3 (06:08→21:29)
[2022-05-20] MEDS: Mupirocin Ointment 22gm Tube 1 APPLIC TOPICAL ×3 (06:08→21:29)
[2022-05-20 06:16] LABS: ALB/GLOB Ratio 0.5 RATIO (0.9-2.4); AST(SGOT) 258 U/L (15-37); Alanine Aminotransfer ALT/SGPT 83 U/L (13-56); Albumin, Serum 2.5 g/dL (3.2-5.0); Alkaline Phosphatase 142 U/L (45-117); Anion Gap 2 (5-15); BUN 11 mg/dL (7-18); BUN/Creat Ratio 10.6 RATIO (10-20); Calcium,Total 8.7 mg/dL (8.5-10.1); Chloride 112 mmol/L (98-107); Creatinine, Serum 1.04 mg/dL (0.55-1.02); EST Glomerular Filtration Rate 60 mL/min (>60); Est Glom Filt Rate - Afr Amer 73 mL/min (>60); Estimated Creatinine Clearance 52.32 ml/min; Globulin 5.2 g/dL (2.2-4.2); Glucose 109 mg/dL (74-106); Potassium 3.6 mmol/L (3.5-5.1); Protein, Total 7.7 g/dL (6.4-8.2); Sodium Level 140 mmol/L (136-145)
[2022-05-20 07:20] VITALS: O2SAT 99
--- NOTE | 2022-05-20 07:49 | PCM.PN.HOSP ---
Subjective Subjective The patient admitted with worsening confusion, forgetfulness for last 2 days. She also has cough for the past week. She also recently diagnosed with MRSA in urgent care and on Bactrim and Keflex for 4 days prior to admission. Objective Data Objective Data Vital Signs: Vital Signs Temp Pulse Resp BP Pulse Ox O2 Del Method 98.5 F 64 18 137/74 H 99 Room Air 05/20/22 04:17 05/20/22 04:17 05/20/22 04:17 05/20/22 04:17 05/20/22 04:17 05/20/22 04:18 Oxygen Delivery Method Room Air Weight: 198 lb 13.711 oz Body Mass Index (BMI) 36.3 Intake & Output: Intake and Output for Last 24 Hours 05/18/22 05/19/22 05/20/22 23:59 23:59 23:59 Intake Total 1000 / 1000 Balance 1000 / 1000 Lab / Micro Data Result Diagrams: 05/20/22 05:35 05/20/22 05:35 Labs: Laboratory Results - last 24 hr 05/19/22 18:01: WBC 7.8, RBC 4.06 L, Hgb 10.7 L, Hct 34.6 L, MCV 85.2, MCH 26.4 L, MCHC 30.9 L, RDW Std Deviation 60.3 H, RDW Coeff of Katalina 19.5 H, Plt Count 72 L, MPV 11.4, Immature Gran % (Auto) 0.300, Neut % (Auto) 53.5, Lymph % (Auto) 34.4, [place] % (Auto) 8.1, Eos % (Auto) 3.1, Baso % (Auto) 0.6, Absolute Neuts (auto) 4.2, Absolute Lymphs (auto) 2.67, Nucleated RBC % 0 05/19/22 18:01: PT 17.5 H, INR 1.5 05/19/22 18:01: Sodium 140, Potassium 3.6, Chloride 112 H, Carbon Dioxide 20.0 L, Anion Gap 8, BUN 13, Creatinine 1.21 H, Estim Creat Clear Calc 44.97, Est GFR (MDRD) Af Amer 61, Est GFR (MDRD) Non-Af 50 L, BUN/Creatinine Ratio 10.7, Glucose 108 H, Calcium 9.2, Total Bilirubin 1.00, Direct Bilirubin 0.49 H, AST 140 H, ALT 63 H, Alkaline Phosphatase 144 H, Total Protein 7.9, Albumin 2.7 L, Globulin 5.2 H 05/19/22 18:01: Ammonia 83.0 H 05/19/22 20:15: Urine Color Josiane, Urine Clarity Cloudy, Urine pH 6.0, Ur Specific [place] 1.025, Urine Protein 30 H, Urine Glucose (UA) Normal, Urine Ketones 5 H, Urine Occult Blood 250 H, Urine Nitrite Negative, Urine Bilirubin 1 H, Urine Urobilinogen 4 H, Ur Leukocyte Esterase 25 H, Urine RBC > 100 SEEN, Urine WBC 0-5 SEEN, Ur Squamous Epith Cells 0-5 SEEN, Calcium Oxalate Crystal 1+, Urine Bacteria 0 SEEN, Hyaline Casts 0-5 SEEN, Urine Mucus 0 SEEN 05/19/22 20:15: Urine Opiates Screen NEGATIVE, Urine Methadone Screen NEGATIVE, Ur Barbiturates Screen NEGATIVE, Ur Phencyclidine Scrn NEGATIVE, Ur Amphetamines Screen POSITIVE H, MDMA (Ecstasy) Screen POSITIVE H, U Benzodiazepines Scrn NEGATIVE, Urine Cocaine Screen NEGATIVE, U Cannabinoids Screen POSITIVE H, Ur Drug Screen Comment 05/19/22 21:45: Phosphorus 3.1, Magnesium 1.8 05/19/22 21:45: Procalcitonin 0.06 05/19/22 23:15: COVID-19 (PHYLLIS) Not Detected 05/20/22 05:35: WBC 7.4, RBC 4.09 L, Hgb 11.0 L, Hct 35.0 L, MCV 85.6, MCH 26.9 L, MCHC 31.4 L, RDW Std Deviation 59.7 H, RDW Coeff of Katalina 19.2 H, Plt Count 68 L, MPV 10.4, Immature Gran % (Auto) 0.100, Neut % (Auto) 51.4, Lymph % (Auto) 37.1, [place] % (Auto) 8.0, Eos % (Auto) 3.0, Baso % (Auto) 0.4, Absolute Neuts (auto) 3.8, Absolute Lymphs (auto) 2.74, Nucleated RBC % 0 05/20/22 05:35: Sodium 140, Potassium 3.6, Chloride 112 H, Carbon Dioxide 26.0, Anion Gap 2 L, BUN 11, Creatinine 1.04 H, Estim Creat Clear Calc 52.32, Est GFR (MDRD) Af Amer 73, Est GFR (MDRD) Non-Af 60, BUN/Creatinine Ratio 10.6, Glucose 109 H, Calcium 8.7, Total Bilirubin 1.00, AST 258 H, ALT 83 H, Alkaline Phosphatase 142 H, Total Protein 7.7, Albumin 2.5 L, Globulin 5.2 H, Albumin/Globulin Ratio 0.5 L 05/20/22 05:35: Ammonia 61.0 H Micro: Microbiology 05/19/22 23:15 Mucosa - Nasopharyngeal Respiratory Panel (PCR) - Final 05/19/22 20:15 Urine, Clean Catch Legionella Antigen - Final 05/19/22 20:15 Urine, Clean Catch Streptococcus pneumoniae Antigen (M - Final 05/19/22 18:01 Nasal Secretion SARS-CoV-2 Antigen (Rapid) - Final Radiography Diagnostic Testing: Radiology Impression Chest X-Ray 05/19/22 18:09 IMPRESSION: No acute cardiopulmonary disease or major interval change. Electronically Signed: Dustin Cunningham DO at 18:24 EDT Reading Location ID and State: [address] [place] [address] Tel [phone], Service support , Abdomen/Pelvis CT 05/19/22 20:06 IMPRESSION: 1. Cirrhotic liver with splenomegaly. 2. Resolution of the mild mesenteric inflammatory change present on the prior study. 3. Stable renal calculi. 4. No other major interval change. Electronically Signed: Dustin Cunningham DO at 21:10 EDT Reading Location ID and State: [address] [place] [address] Tel [phone], Service support , Assessment & Plan Assessment/Plan (1) Acute hepatic encephalopathy: (2) Hyperammonemia: PLAN: Plan The patient is a 46 y/o F #1. Acute toxic metabolic hepatic encephalopathy due to chronic hepatitis C cirrhosis: Patient not on lactulose and Xifaxan at home, started on admission. #2. Dyspnea, mild cough, unclear specific etiology, possibly primarily secondary to #1: Chest x-ray without overt findings, rapid COVID antigen negative, to be cautious will request PCR and respiratory viral panel, repeat chest x-ray in a.m. to assure no evolving pneumonia however suspect likely presentation secondary to primarily #1. Procalcitonin level requested. #3. Mild acute renal insufficiency: Admission BUN/creat 13/1.21, prior baseline 0.8-1, will continue to just hydration as noted, repeat CMP in AM. #4. Recent facial cellulitis: Recent history of picking at her chin with onset of infection and cellulitis with urgent care evaluation with diagnosis of MRSA at that time placed on doxycycline however symptoms have not been improving with ED evaluation 05/15/2022, discharged on Keflex and Bactrim at that time, will cautiously continue to completion in addition to topical mupirocin and dressing to deter picking of the region. Will continue to monitor renal function given mild renal insufficiency with adjustment or alteration of regimen pending further labs. #5. History of polysubstance abuse: Patient with prior history of IV drug abuse with last usage 5 years prior to current presentation including heroin, methamphetamine, cannabis usage however UDS does have amphetamine, MDMA and cannabis and from current medications do not suspect these would have any overlap false positive on the urine drug screen but will further clarify with lab. Acute presentation likely secondary to primarily acute hepatic encephalopathy secondary to hyperammonia level but certainly could have abuse component. #6. Anxiety and depression: We will continue patient home duloxetine, desvenlafaxine, aripiprazole home regimen. Hold for sedation and additionally we will hold patient home zolpidem nightly regimen. #7. Chronic normocytic anemia/iron deficiency anemia: Admission hemoglobin 10.7, prior baseline 11.7 06/29/2021, will continue to trend, continue iron supplementation. #8. Chronic thrombocytopenia: Likely secondary to underlying liver disease, admission platelets 72, prior baseline 90-110, most recent 06/29/2021 platelets 90, will continue to trend. #9. Tobacco Abuse: Encouraged cessation, inpatient consultation per RT, NR if desired. #10. Obesity: Weight loss and lifestyle changes encouraged. #11. DVT prophylaxis: SCDs, defer chemoprophylaxis given mild thrombocytopenia. #12. CODE status: Patient does not have healthcare power of lieutenant fire fighter nor living will. Discussed CODE status at length including difference between FULL code, DNR-CCA and DNR-CC status. Following discussions about the differences in these status, requested Full Code status. Advanced Care Planning Face to Face Time: 16 minutes.
[2022-05-20 08:43] VITALS: BP 120/58; PULSE 72; RESP 18; TEMP 36.6; O2SAT 100
--- NOTE | 2022-05-20 09:03 | WOUNDNOTE ---
Was consulted on patient for scattered scabs. patient tends to pick at them. patient is getting Bactroban to the chin. other wounds are VALENTE. no need for wound care at this time. nursing changing dressings.
[2022-05-20] MEDS: Ibuprofen 600 MG Tablet PO (09:15)
[2022-05-20] MEDS: 0.9% Saline Lock 10 ML Syringe IV (13:49)
--- NOTE | 2022-05-20 14:06 | PN.HOSP_ITS ---
Documented by User: Kaylin Fernandez NP, TELEVISION AUDIO ENGINEER-C 05/20/22 14:18 Subjective Subjective Patient seen and examined. Reports lower back pain. No pain radiation down her legs. Reports drowsiness and falling asleep during exam. Objective Data Objective Data Vital Signs: Vital Signs Temp Pulse Resp BP Pulse Ox O2 Del Method 97.9 F 72 18 120/58 L 100 Room Air 05/20/22 08:43 05/20/22 08:43 05/20/22 08:43 05/20/22 08:43 05/20/22 08:43 05/20/22 08:51 Oxygen Delivery Method Room Air Weight: 198 lb 13.711 oz Body Mass Index (BMI) 36.3 Intake & Output: Intake and Output for Last 24 Hours 05/18/22 05/19/22 05/20/22 23:59 23:59 23:59 Intake Total 1000 / 1000 1500 / 1500 Balance 1000 / 1000 1500 / 1500 Lab / Micro Data Result Diagrams: 05/20/22 05:35 05/20/22 05:35 Labs: Laboratory Results - last 24 hr 05/19/22 18:01: WBC 7.8, RBC 4.06 L, Hgb 10.7 L, Hct 34.6 L, MCV 85.2, MCH 26.4 L, MCHC 30.9 L, RDW Std Deviation 60.3 H, RDW Coeff of Katalina 19.5 H, Plt Count 72 L, MPV 11.4, Immature Gran % (Auto) 0.300, Neut % (Auto) 53.5, Lymph % (Auto) 34.4, Rains % (Auto) 8.1, Eos % (Auto) 3.1, Baso % (Auto) 0.6, Absolute Neuts (auto) 4.2, Absolute Lymphs (auto) 2.67, Nucleated RBC % 0 05/19/22 18:01: PT 17.5 H, INR 1.5 05/19/22 18:01: Sodium 140, Potassium 3.6, Chloride 112 H, Carbon Dioxide 20.0 L , Anion Gap 8, BUN 13, Creatinine 1.21 H, Estim Creat Clear Calc 44.97, Est GFR (MDRD) Af Amer 61, Est GFR (MDRD) Non-Af 50 L, BUN/Creatinine Ratio 10.7, Glucose 108 H, Calcium 9.2, Total Bilirubin 1.00, Direct Bilirubin 0.49 H, AST 140 H, ALT 63 H, Alkaline Phosphatase 144 H, Total Protein 7.9, Albumin 2.7 L, Globulin 5.2 H 05/19/22 18:01: Ammonia 83.0 H 05/19/22 20:15: Urine Color Josiane, Urine Clarity Cloudy, Urine pH 6.0, Ur Specific [place] 1.025, Urine Protein 30 H, Urine Glucose (UA) Normal, Urine Ketones 5 H, Urine Occult Blood 250 H, Urine Nitrite Negative, Urine Bilirubin 1 H, Urine Urobilinogen 4 H, Ur Leukocyte Esterase 25 H, Urine RBC > 100 SEEN, Urine WBC 0-5 SEEN, Ur Squamous Epith Cells 0-5 SEEN, Calcium Oxalate Crystal 1+, Urine Bacteria 0 SEEN, Hyaline Casts 0-5 SEEN, Urine Mucus 0 SEEN 05/19/22 20:15: Urine Opiates Screen NEGATIVE, Urine Methadone Screen NEGATIVE, Ur Barbiturates Screen NEGATIVE, Ur Phencyclidine Scrn NEGATIVE, Ur Amphetamines Screen POSITIVE H, MDMA (Ecstasy) Screen POSITIVE H, U Benzodiazepines Scrn NEGATIVE, Urine Cocaine Screen NEGATIVE, U Cannabinoids Screen POSITIVE H, Ur Drug Screen Comment 05/19/22 21:45: Phosphorus 3.1, Magnesium 1.8 05/19/22 21:45: Procalcitonin 0.06 05/19/22 23:15: COVID-19 (PHYLLIS) Not Detected 05/20/22 05:35: WBC 7.4, RBC 4.09 L, Hgb 11.0 L, Hct 35.0 L, MCV 85.6, MCH 26.9 L, MCHC 31.4 L, RDW Std Deviation 59.7 H, RDW Coeff of Katalina 19.2 H, Plt Count 68 L, MPV 10.4, Immature Gran % (Auto) 0.100, Neut % (Auto) 51.4, Lymph % (Auto) 37.1, Rains % (Auto) 8.0, Eos % (Auto) 3.0, Baso % (Auto) 0.4, Absolute Neuts (auto) 3.8, Absolute Lymphs (auto) 2.74, Nucleated RBC % 0 05/20/22 05:35: Sodium 140, Potassium 3.6, Chloride 112 H, Carbon Dioxide 26.0, Anion Gap 2 L, BUN 11, Creatinine 1.04 H, Estim Creat Clear Calc 52.32, Est GFR (MDRD) Af Amer 73, Est GFR (MDRD) Non-Af 60, BUN/Creatinine Ratio 10.6, Glucose 109 H, Calcium 8.7, Total Bilirubin 1.00, AST 258 H, ALT 83 H, Alkaline Phosphatase 142 H, Total Protein 7.7, Albumin 2.5 L, Globulin 5.2 H, Albumin/Globulin Ratio 0.5 L 05/20/22 05:35: Ammonia 61.0 H Micro: Microbiology 05/19/22 23:15 Mucosa - Nasopharyngeal Respiratory Panel (PCR) - Final 05/19/22 20:15 Urine, Clean Catch Legionella Antigen - Final 05/19/22 20:15 Urine, Clean Catch Streptococcus pneumoniae Antigen (M - Final 05/19/22 18:01 Nasal Secretion SARS-CoV-2 Antigen (Rapid) - Final Radiography Diagnostic Testing: Radiology Impression Chest X-Ray 05/19/22 18:09 IMPRESSION: No acute cardiopulmonary disease or major interval change. Electronically Signed: Dustin Cunningham DO at 18:24 EDT Reading Location ID and State: [address] [place] [address] Tel [phone], Service support , Abdomen/Pelvis CT 05/19/22 20:06 IMPRESSION: 1. Cirrhotic liver with splenomegaly. 2. Resolution of the mild mesenteric inflammatory change present on the prior study. 3. Stable renal calculi. 4. No other major interval change. Electronically Signed: Dustin Cunningham DO at 21:10 EDT Reading Location ID and State: [address] [place] [address] Tel [phone], Service support , Chest X-Ray 05/20/22 05:55 IMPRESSION: Normal x-ray examination of the chest. Electronically Signed: Isidro Burnett MD at 8:46 EDT , Physical Exam Const alert and oriented x3 Constitutional Narrative: Drowsy HEENT normocephalic Mouth: dry mucous membranes Eyes PERRL, EOMs intact bilaterally and conjunctivae normal Neck no lymphadenopathy Resp normal respiratory effort and clear to auscultation bilaterally Cardio regular rate, regular rhythm and no murmurs Peripheral Pulses: pulses 2+ throughout GI normal to inspection, nondistended, normoactive bowel sounds, non-tender and non-distended Extremity normal to inspection Skin no rashes or lesions noted Lesions: no lesions Rashes: no rashes Trauma: no lacerations or abrasions Neuro CN's II-XII intact bilaterally, no focal motor deficits, no sensory deficits noted and deep tendon reflexes 2+ bilaterally Psych mental status grossly normal and affect normal Assessment & Plan Assessment/Plan (1) Acute hepatic encephalopathy: PLAN: Plan 1. Acute toxic metabolic hepatic encephalopathy-secondary to decompensated cirrhosis. Initiated on lactulose for hyperammonia. Will need outpatient GI follow-up. 2. Dyspnea, cough-currently resolved. Suspect secondary to cirrhosis. No evidence of pneumonia or infection. Viral panel including COVID-negative. Oxyg en stable on room air. 3. Mild dehydration-no acute kidney injury. Improved. Continue IV fluids. 4. Recent facial cellulitis-picking behavior. Completed previously prescribed Keflex and Bactrim. Topical Bactroban. 5. History of polysubstance abuse-Tox screen positive for amphetamines, ecstasy and cannabinoids. 6. Chronic anemia/thrombocytopenia-likely secondary to underlying liver disease. Trend labs. 7. Anxiety/depression-continue home duloxetine, desvenlafaxine, aripiprazole home regimen. 8. Tobacco dependence-encouraged cessation. 9. Obesity-encouraged diet and lifestyle modifications. DVT prophylaxis-SCDs This patient was seen by CONCHIS Bernal under the supervision of Dr. Adams. Time spent examining patient, reviewing data and subsequent management of care: 17 minutes Documented by User: Dr. Son Adams MD 05/20/22 15:29 Subjective Subjective Patient seen and examined. Reports lower back pain. No pain radiation down her legs. Reports drowsiness and falling asleep during exam. Seen and examined. Patient is still lethargic. States does not know why she is admitted. Complain of lower back pain. She is admitted for confusion, encephalopathy. No fever. Denies burning micturition or new lower [place] tract symptoms. Denies diarrhea mild constipation. Objective Data Lab / Micro Data Result Diagrams: 05/20/22 05:35 05/20/22 05:35 Physical Exam Narrative General: Lethargic, oriented x3. HEENT: Atraumatic, PERRLA, EOMI, Normocephalic Oral: No Gingival or Mucosal Lesions/ Ulcerations Neck: Supple, No JVD, Negative Carotid Bruits Lungs: Air entry diminished in bilateral lung bases. No crepitation/rhonchi Cardiovascular: Regular rate, Regular Rhythm, Normal S1, Normal S2, No murmurs Abdomen: Bowel Sounds Present, Soft, Non Tender, Non-Distended. No palpable ascites, no fluid thrill : No renal angle tenderness. No suprapubic tenderness. Extremities: No edema, Capillary Refill Less than 3 Seconds Skin: No rashes, No breakdown Musculoskeletal: No Tenderness to Palpation of Joints or Extremities. Muscle strength 4/5 at major joints. Neurological: Increased time to respond. Nonfocal exam. States correctly day and date, month, year, place and person. Psych/Mental Status: Flat affect. Assessment & Plan Assessment/Plan (1) Acute hepatic encephalopathy: PLAN: Plan 1. Acute toxic metabolic hepatic encephalopathy-secondary to decompensated cirrhosis. Initiated on lactulose for hyperammonia. Will need outpatient GI follow-up. 2. Dyspnea, cough-currently resolved. Suspect secondary to cirrhosis. No evidence of pneumonia or infection. Viral panel including COVID-negative. Oxygen stable on room air. 3. Mild dehydration-no acute kidney injury. Improved. Continue IV fluids. 4. Recent facial cellulitis-picking behavior. Completed previously prescribed Keflex and Bactrim. Topical Bactroban. 5. History of polysubstance abuse-Tox screen positive for amphetamines, ecstasy and cannabinoids. 6. Chronic anemia/thrombocytopenia-likely secondary to underlying liver disease. Trend labs. 7. Anxiety/depression-continue home duloxetine, desvenlafaxine, aripiprazole home regimen. 8. Tobacco dependence-encouraged cessation. 9. Obesity-encouraged diet and lifestyle modifications. DVT prophylaxis-SCDs This patient was seen by CONCHIS Bernal under the supervision of Dr. Adams. Time spent examining patient, reviewing data and subsequent management of care: 15 minutes This patient was seen in conjunction with Kaylin GAMEZ. I have independently interviewed and examined the patient and reviewed pertinent history, examination findings, laboratory and plan of management. I have reviewed the note and agree with the documented findings with the few additional points. In brief, patient is 46-year-old female admitted with worsening confusion, forgetfulness for last 2 days. She also has cough for the past week. Recently diagnosed with MRSA in urgent care on Bactrim and Keflex for 4 days prior to admission. On detailed assessment, management plan admission below 1. Acute toxic metabolic hepatic encephalopathy secondary to decompensated chronic hepatitis C related cirrhosis: Patient not on lactulose and Xifaxan at home, started on admission. Goal to have 3 bowel movements per day. 2. Mild isolated cough with shortness of breath: Patient chest x-ray initially reviewed shows no acute cardiopulmonary abnormality. No fever. Rapid COVID antigen, PCR and respiratory panel negative. Urinary antigens are negative. Procalcitonin level normal. Monitor clinically. Incentive spirometry 3. Recent facial cellulitis due to MRSA infection: Topical mupirocin. Continue Keflex and Bactrim DS. 4. Chronic normocytic anemia/iron versus anemia, chronic thrombocytopenia due to decompensated cirrhosis. Leukocyte count is normal. 5. Other multiple comorbidities include history of polysubstance use, anxiety and depression, cigarette smoking/nicotine dependence and obesity: Patient U tox is positive for amphetamine, ecstasy, and cannabinoids. On nicotine patch. Patient on multiple antipsychotic medications continued. On nicotine patch. I have discussed my assessment with Kaylin GAMEZ and orders have been reviewed. Total time of the visit including total time spent in counseling or coordination of care, (more than 50% of the total time, spent in obtaining medical information from nurses and other ancillary care providers,explaining to the patient about labs, imaging, diagnosis and management of active complex medical conditions), medical record review, review of labs and imaging is 40 minutes. I spent 25 minutes and VERA Ewing spent 15 minutes Microbiology Past 72 Hours 05/19/22 23:15 Mucosa - Nasopharyngeal Respiratory Panel (PCR) - Final 05/19/22 20:15 Urine, Clean Catch Legionella Antigen - Final 05/19/22 20:15 Urine, Clean Catch Streptococcus pneumoniae Antigen (M - Final 05/19/22 18:01 Nasal Secretion SARS-CoV-2 Antigen (Rapid) - Final Laboratory Results 05/19/22 18:01: WBC 7.8, RBC 4.06 L, Hgb 10.7 L, Hct 34.6 L, MCV 85.2, MCH 26.4 L, MCHC 30.9 L, RDW Std Deviation 60.3 H, RDW Coeff of Katalina 19.5 H, Plt Count 72 L, MPV 11.4, Immature Gran % (Auto) 0.300, Neut % (Auto) 53.5, Lymph % (Auto) 34.4, Rains % (Auto) 8.1, Eos % (Auto) 3.1, Baso % (Auto) 0.6, Absolute Neuts (auto) 4.2, Absolute Lymphs (auto) 2.67, Nucleated RBC % 0 05/19/22 18:01: PT 17.5 H, INR 1.5 05/19/22 18:01: Sodium 140, Potassium 3.6, Chloride 112 H, Carbon Dioxide 20.0 L , Anion Gap 8, BUN 13, Creatinine 1.21 H, Estim Creat Clear Calc 44.97, Est GFR (MDRD) Af Amer 61, Est GFR (MDRD) Non-Af 50 L, BUN/Creatinine Ratio 10.7, Glucose 108 H, Calcium 9.2, Total Bilirubin 1.00, Direct Bilirubin 0.49 H, AST 140 H, ALT 63 H, Alkaline Phosphatase 144 H, Total Protein 7.9, Albumin 2.7 L, Globulin 5.2 H 05/19/22 18:01: Ammonia 83.0 H 05/19/22 20:15: Urine Color Josiane, Urine Clarity Cloudy, Urine pH 6.0, Ur Specific [place] 1.025, Urine Protein 30 H, Urine Glucose (UA) Normal, Urine Ketones 5 H, Urine Occult Blood 250 H, Urine Nitrite Negative, Urine Bilirubin 1 H, Urine Urobilinogen 4 H, Ur Leukocyte Esterase 25 H, Urine RBC > 100 SEEN, Urine WBC 0-5 SEEN, Ur Squamous Epith Cells 0-5 SEEN, Calcium Oxalate Crystal 1+, Urine Bacteria 0 SEEN, Hyaline Casts 0-5 SEEN, Urine Mucus 0 SEEN 08/24/22 20:15: Urine Opiates Screen NEGATIVE, Urine Methadone Screen NEGATIVE, Ur Barbiturates Screen NEGATIVE, Ur Phencyclidine Scrn NEGATIVE, Ur Amphetamines Screen POSITIVE H, MDMA (Ecstasy) Screen POSITIVE H, U Benzodiazepines Scrn NEGATIVE, Urine Cocaine Screen NEGATIVE, U Cannabinoids Screen POSITIVE H, Ur Drug Screen Comment 05/19/22 21:45: Phosphorus 3.1, Magnesium 1.8 05/19/22 21:45: Procalcitonin 0.06 05/19/22 23:15: COVID-19 (PHYLLIS) Not Detected 05/20/22 05:35: WBC 7.4, RBC 4.09 L, Hgb 11.0 L, Hct 35.0 L, MCV 85.6, MCH 26.9 L, MCHC 31.4 L, RDW Std Deviation 59.7 H, RDW Coeff of Katalina 19.2 H, Plt Count 68 L, MPV 10.4, Immature Gran % (Auto) 0.100, Neut % (Auto) 51.4, Lymph % (Auto) 37.1, Rains % (Auto) 8.0, Eos % (Auto) 3.0, Baso % (Auto) 0.4, Absolute Neuts (auto) 3.8, Absolute Lymphs (auto) 2.74, Nucleated RBC % 0 05/20/22 05:35: Sodium 140, Potassium 3.6, Chloride 112 H, Carbon Dioxide 26.0, Anion Gap 2 L, BUN 11, Creatinine 1.04 H, Estim Creat Clear Calc 52.32, Est GFR (MDRD) Af Amer 73, Est GFR (MDRD) Non-Af 60, BUN/Creatinine Ratio 10.6, Glucose 109 H, Calcium 8.7, Total Bilirubin 1.00, AST 258 H, ALT 83 H, Alkaline Phosphatase 142 H, Total Protein 7.7, Albumin 2.5 L, Globulin 5.2 H, Albumin/Globulin Ratio 0.5 L 05/20/22 05:35: Ammonia 61.0 H Charges/Coding Visit Charges Inpatient E&M: 57614 Subs Hosp L3
--- NOTE | 2022-05-20 15:17 | CASEMGMT ---
RN CM in to pt room, pt sitting up in bed, unable to keep eyes opened. Pt oriented to self, she did not know her birthdate, stated it was [birth year]. Upon asking questions, pt states i cannot comprehend. Asked patient if it was ok to call pt dtr for assessment and she states yes. TC to pt dtr, left message on vm to return call with call back info.
[2022-05-20 17:48] VITALS: BP 147/76; PULSE 72; RESP 16; TEMP 36.9; O2SAT 99
[2022-05-20] MEDS: Ibuprofen 400 MG Tablet 800 MG PO (18:05)
[2022-05-20 21:29] VITALS: BP 132/70; PULSE 74; RESP 16; TEMP 36.8; O2SAT 98
[2022-05-20] MEDS: Topiramate 100 MG Tablet PO (21:31)
[2022-05-20] MEDS: Pantoprazole Sodium 40 MG Tablet PO (21:32)
[2022-05-21 05:00] VITALS: BP 117/82; PULSE 83; RESP 16; TEMP 36.9; O2SAT 98
[2022-05-21] MEDS: Lactulose 20 GM/30 ML UDC PO ×2 (05:32→13:01)
[2022-05-21] MEDS: Mupirocin Ointment 22gm Tube 1 APPLIC TOPICAL ×2 (05:32→08:35)
[2022-05-21 07:27] LABS: Absolute Lymphocyte Count 2.52 X10^3/uL (0.83-4.51); Absolute Neutrophil Count 3.7 X10^3/uL (2.0-7.7); Basophil# 0.04 X10^3/uL; Basophil% 0.6 % (0-1); Eosinophil# 0.19 X10^3/uL; Eosinophils% 2.7 % (0-5); Hematocrit 32.9 % (37-47); Hemoglobin 10.4 g/dL (12.0-15.0); Lymphocyte # 2.52 X10^3/ul (0.83-4.51); Lymphocyte % 35.9 % (19-41); Mean Corp Hgb Conc 31.6 g/dL (32-36); Mean Corpuscular Hgb 27.4 pg (27.0-32.0); Mean Corpuscular Volume 86.8 fL (81-99); Mean Platelet Vol. 10.7 fl (6.2-12.0); Monocyte# 0.58 X10^3/uL; Monocyte% 8.3 % (0-10); NRBC Flagged by Analyzer 0 % (0-5); Neutrophil # 3.67 X10^3/uL (2.7-7.7); Neutrophil % 52.4 % (47-70); POSITIVE COUNT YES; Platelet Count 74 K/mm3 (150-450); RBC Distribution Width CV 19.5 % (11.6-14.6); RBC Distribution Width SD 62.4 fl (35.1-43.9); Red Blood Count 3.79 M/mm3 (4.2-5.4)
[2022-05-21 07:40] VITALS: O2SAT 98
[2022-05-21 07:54] LABS: ALB/GLOB Ratio 0.5 RATIO (0.9-2.4); AST(SGOT) 240 U/L (15-37); Alanine Aminotransfer ALT/SGPT 83 U/L (13-56); Albumin, Serum 2.4 g/dL (3.2-5.0); Alkaline Phosphatase 150 U/L (45-117); Anion Gap 3 (5-15); BUN 8 mg/dL (7-18); BUN/Creat Ratio 9.5 RATIO (10-20); Calcium,Total 8.7 mg/dL (8.5-10.1); Chloride 110 mmol/L (98-107); Creatinine, Serum 0.84 mg/dL (0.55-1.02); EST Glomerular Filtration Rate 77 mL/min (>60); Est Glom Filt Rate - Afr Amer 93 mL/min (>60); Estimated Creatinine Clearance 64.78 ml/min; Globulin 4.8 g/dL (2.2-4.2); Glucose 106 mg/dL (74-106); Potassium 3.9 mmol/L (3.5-5.1); Protein, Total 7.2 g/dL (6.4-8.2); Sodium Level 138 mmol/L (136-145)
[2022-05-21 08:27] VITALS: BP 135/83; PULSE 65; RESP 16; TEMP 36.9; O2SAT 98
[2022-05-21] MEDS: Topiramate 100 MG Tablet PO (08:37)
[2022-05-21] MEDS: Pantoprazole Sodium 40 MG Tablet PO (08:38)
[2022-05-21] MEDS: Furosemide 20 MG Tablet PO (08:38)
--- NOTE | 2022-05-21 11:52 | DCINST_ITS ---
Discharge Instructions Diet Discharge Diet: No restrictions Activity Discharge Activity: Return to Normal Activity Dressing / Incision Call your doctor if you observe: Shortness of breath, Dizziness and Chest pain Follow Up Care Test Results: Test results from this visit will be discussed in further detail at your follow- up appointment, if applicable. Discharge Plan Admission Admit Date/Time: 05/19/22 21:28 Primary Reason for Your Visit: Confusion Attending Provider: Son Adams Primary Care Provider: Ang Acosta Consulting Providers: Sowmya Mirza Discharge Orders/Prescriptions Prescriptions: Continued desvenlafaxine 100 mg tablet extended release 24hr 100 mg PO DAILY albuterol sulfate 1 PUFF inhaler 1 - 2 puff inhalation Q4H PRN PRN (Reason: Sob &/Or Wheezing) ibuprofen 800 mg tablet 800 mg PO Q8H PRN (Reason: pain) Qty: 30 0RF Vitamin D3 1,250 mcg OTHER QWEEK Rx Instructions: TAKES ON MODAY BY MOUTH pantoprazole 40 mg Tablet,Delayed Release (Dr/Ec) 40 mg PO BID Rx Instructions: BEFORE MEALS furosemide 20 mg tablet 20 mg PO DAILY Label Comments: Take 1 tablet by mouth once daily. topiramate 100 mg tablet 100 mg PO BID Rx Instructions: BEFORE MEALS Changed trazodone 100 mg tablet 100 mg PO QHS Qty: 1 0RF gabapentin 300 mg capsule 100 mg PO BID Qty: 1 0RF Referrals / Follow Up: Ang Acosta MD [Primary Care Provider] - In 1 Week José Porras DO [Med Staff - Active Staff] - In 1 Week Disposition Disposition (needs filled in before D/C Order can be placed): Home, Self Care
--- NOTE | 2022-05-21 12:13 | PCM.DC.SUM ---
Documented by User: Kaylin Fernandez NP, IT COMPLIANCE ANALYST-C 05/21/22 12:20 Providers Date of Admission: 05/19/22 Date of Discharge: 05/21/22 Primary Care Physician: Dr. Ang Acosta MD Reason For Visit: HEPATIC ENCEPHALOPATHY Diagnosis Discharge Diagnosis (1) Acute hepatic encephalopathy: Status: Acute Code(s): K72.00 - Acute and subacute hepatic failure without coma Medications at Discharge Home Medications desvenlafaxine 100 mg tablet,extended release 24 hour 100 mg PO DAILY NREVE PAIN 02/20/19 albuterol sulfate 90 mcg/actuation aerosol inhaler 1 - 2 puff inhalation Q4H PRN PRN Sob &/Or Wheezing 06/11/19 ibuprofen 800 mg tablet 800 mg PO Q8H PRN pain #30 tabs 06/12/21 Vitamin D3 1,250 mcg OTHER QWEEK SUPPLEMENT 05/20/22 furosemide 20 mg tablet 20 mg PO DAILY REDUCE FLUIDS 05/20/22 pantoprazole 40 mg tablet,delayed release 40 mg PO BID GERD 05/20/22 topiramate 100 mg tablet 100 mg PO BID PER GASTRO 05/20/22 gabapentin 300 mg capsule 100 mg PO BID NERVE PAIN #1 cap 05/21/22 lactulose 20 gram/30 mL oral solution 20 g (30 mL) PO BID #1,200 mL 05/21/22 mupirocin 2 % topical ointment 1 applic topical TID 7 days #22 grams 05/21/22 nicotine 21 mg/24 hr daily transdermal patch 21 mg transdermal DAILY #30 ea 05/21/22 trazodone 100 mg tablet 100 mg PO QHS SLEEP #1 TAB 05/21/22 Hospital Course Operations None Procedures None Summary of Care Provided Hospital Course: Patient is a 46-year-old female admitted 05/19/2022 due to confusion. 1.? Acute toxic metabolic hepatic encephalopathy-secondary to decompensated cirrhosis, polypharmacy and polysubstance abuse.? Initiated on lactulose for hyperammonia.? Continue lactulose and home Lasix at discharge. Referred to GI for outpatient follow-up. Follow-up with PCP in 1 week. Gabapentin and trazodone dosing reduced as well due to drowsiness. 2.? Dyspnea, cough-currently resolved.? No evidence of pneumonia or infection.? Viral panel including COVID-negative.? Oxygen stable on room air. 3. Mild dehydration-no acute kidney injury.? Improved.? 4. Recent facial cellulitis-picking behavior.? Completed previously prescribed Keflex and Bactrim.? Topical Bactroban. 5. History of polysubstance abuse-Tox screen positive for amphetamines, ecstasy and cannabinoids. 6. Chronic anemia/thrombocytopenia-likely secondary to underlying liver disease.? Trend labs. 7. Anxiety/depression-continue home duloxetine, desvenlafaxine, aripiprazole home regimen. 8. Tobacco dependence-encouraged cessation. 9. Obesity-encouraged diet and lifestyle modifications. Physical Exam Const alert and oriented x3 Constitutional Narrative: Intermittently drowsy, improved HEENT normocephalic Mouth: Moist mucous membranes Eyes PERRL, EOMs intact bilaterally and conjunctivae normal Neck no lymphadenopathy Resp normal respiratory effort and clear to auscultation bilaterally Cardio regular rate, regular rhythm and no murmurs Peripheral Pulses: pulses 2+ throughout GI normal to inspection, nondistended, normoactive bowel sounds, non-tender and non-distended Extremity normal to inspection Skin no rashes or lesions noted Lesions: no lesions Rashes: no rashes Trauma: no lacerations or abrasions Recent facial cellulitis with chin scabbing Neuro CN's II-XII intact bilaterally, no focal motor deficits, no sensory deficits noted and deep tendon reflexes 2+ bilaterally Psych mental status grossly normal and affect normal Patient seen and examined prior to discharge. Physical assessment as noted above. Patient is stable for discharge with follow up recommendations as noted above. This patient was seen by CONCHIS Bernal under the supervision of Dr. Adams. Time spent examining patient, reviewing data and subsequent management of care: 20 minutes Weight / BMI Weight Weight: 202 lb 2.622 oz Body Mass Index (BMI) 36.3 ABG / Lab / Microbiology Data Result Diagrams: 05/21/22 05:30 05/21/22 05:30 Laboratory: Laboratory Results - last 24 hr 05/21/22 05:30: WBC 7.0, RBC 3.79 L, Hgb 10.4 L, Hct 32.9 L, MCV 86.8, MCH 27.4, MCHC 31.6 L, RDW Std Deviation 62.4 H, RDW Coeff of Katalina 19.5 H, Plt Count 74 L, MPV 10.7, Immature Gran % (Auto) 0.100, Neut % (Auto) 52.4, Lymph % (Auto) 35.9, Whitman % (Auto) 8.3, Eos % (Auto) 2.7, Baso % (Auto) 0.6, Absolute Neuts (auto) 3.7, Absolute Lymphs (auto) 2.52, Nucleated RBC % 0 05/21/22 05:30: Sodium 138, Potassium 3.9, Chloride 110 H, Carbon Dioxide 25.0, Anion Gap 3 L, BUN 8, Creatinine 0.84, Estim Creat Clear Calc 64.78, Est GFR (MDRD) Af Amer 93, Est GFR (MDRD) Non-Af 77, BUN/Creatinine Ratio 9.5 L, Glucose 106, Calcium 8.7, Total Bilirubin 1.00, AST 240 H, ALT 83 H, Alkaline Phosphatase 150 H, Total Protein 7.2, Albumin 2.4 L, Globulin 4.8 H, Albumin/Globulin Ratio 0.5 L Microbiology: Microbiology 05/19/22 23:15 Mucosa - Nasopharyngeal Respiratory Panel (PCR) - Final 05/19/22 20:15 Urine, Clean Catch Legionella Antigen - Final 05/19/22 20:15 Urine, Clean Catch Streptococcus pneumoniae Antigen (M - Final 05/19/22 18:01 Nasal Secretion SARS-CoV-2 Antigen (Rapid) - Final D/C Instructions Discharge Diet: No restrictions Call your doctor if you observe: Shortness of breath, Dizziness and Chest pain Meaningful Use Info Meaningful Use Diagnoses (Choose all that apply): None applicable Discharge Plan Admission Admit Date/Time: 05/19/22 21:28 Primary Reason for Your Visit: Confusion, toxic metabolic hepatic encephalopathy Attending Provider: Son Adams Primary Care Provider: Ang Acosta Consulting Providers: Sowmya Mirza Discharge Orders/Prescriptions Prescriptions: New lactulose 20 gram/30 mL solution 20 g PO BID Qty: 1200 0RF nicotine 21 mg/24 hr Patch 24 Hour 21 mg transdermal DAILY Qty: 30 0RF mupirocin 2 % Ointment 1 applic topical TID 7 Days Qty: 22 0RF Protocol: *Topical Application Instructions APPLICATION INSTRUCTIONS: To chin. Continued desvenlafaxine 100 mg tablet extended release 24hr 100 mg PO DAILY albuterol sulfate 1 PUFF inhaler 1 - 2 puff inhalation Q4H PRN PRN (Reason: Sob &/Or Wheezing) ibuprofen 800 mg tablet 800 mg PO Q8H PRN (Reason: pain) Qty: 30 0RF Vitamin D3 1,250 mcg OTHER QWEEK Rx Instructions: TAKES ON MODAY BY MOUTH pantoprazole 40 mg Tablet,Delayed Release (Dr/Ec) 40 mg PO BID Rx Instructions: BEFORE MEALS furosemide 20 mg tablet 20 mg PO DAILY Label Comments: Take 1 tablet by mouth once daily. topiramate 100 mg tablet 100 mg PO BID Rx Instructions: BEFORE MEALS Changed trazodone 100 mg tablet 100 mg PO QHS Qty: 1 0RF gabapentin 300 mg capsule 100 mg PO BID Qty: 1 0RF Referrals / Follow Up: Ang Acosta MD [Primary Care Provider] - In 1 Week Friend,DO José [Med Staff - Active Staff] - In 1 Week Disposition Disposition (needs filled in before D/C Order can be placed): Home, Self Care Documented by User: Dr. Son Adams MD 05/21/22 13:16 Providers Date of Admission: 05/19/22 Reason For Visit: HEPATIC ENCEPHALOPATHY Diagnosis Discharge Diagnosis (1) Acute hepatic encephalopathy: Status: Acute Code(s): K72.00 - Acute and subacute hepatic failure without coma Medications at Discharge Home Medications desvenlafaxine 100 mg tablet,extended release 24 hour 100 mg PO DAILY NREVE PAIN 02/20/19 albuterol sulfate 90 mcg/actuation aerosol inhaler 1 - 2 puff inhalation Q4H PRN PRN Sob &/Or Wheezing 06/11/19 ibuprofen 800 mg tablet 800 mg PO Q8H PRN pain #30 tabs 06/12/21 Vitamin D3 1,250 mcg OTHER QWEEK SUPPLEMENT 05/20/22 furosemide 20 mg tablet 20 mg PO DAILY REDUCE FLUIDS 05/20/22 pantoprazole 40 mg tablet,delayed release 40 mg PO BID GERD 05/20/22 topiramate 100 mg tablet 100 mg PO BID PER GASTRO 05/20/22 gabapentin 300 mg capsule 100 mg PO BID NERVE PAIN #1 cap 05/21/22 lactulose 20 gram/30 mL oral solution 20 g (30 mL) PO BID #1,200 mL 05/21/22 mupirocin 2 % topical ointment 1 applic topical TID 7 days #22 grams 05/21/22 nicotine 21 mg/24 hr daily transdermal patch 21 mg transdermal DAILY #30 ea 05/21/22 trazodone 100 mg tablet 100 mg PO QHS SLEEP #1 TAB 05/21/22 Hospital Course Summary of Care Provided Hospital Course: Patient is a 46-year-old female admitted 05/19/2022 due to confusion. 1.? Acute toxic metabolic hepatic encephalopathy-secondary to decompensated cirrhosis, polypharmacy and polysubstance abuse.? Initiated on lactulose for hyperammonia.? Continue lactulose and home Lasix at discharge. Referred to GI for outpatient follow-up. Follow-up with PCP in 1 week. Gabapentin and trazodone dosing reduced as well due to drowsiness. 2.? Dyspnea, cough-currently resolved.? No evidence of pneumonia or infection.? Viral panel including COVID-negative.? Oxygen stable on room air. 3. Mild dehydration-no acute kidney injury.? Improved.? 4. Recent facial cellulitis-picking behavior.? Completed previously prescribed Keflex and Bactrim.? Topical Bactroban. 5. History of polysubstance abuse-Tox screen positive for amphetamines, ecstasy and cannabinoids. 6. Chronic anemia/thrombocytopenia-likely secondary to underlying liver disease.? Trend labs. 7. Anxiety/depression-continue home duloxetine, desvenlafaxine, aripiprazole home regimen. 8. Tobacco dependence-encouraged cessation. 9. Obesity-encouraged diet and lifestyle modifications. This patient was seen in conjunction with IT COMPLIANCE ANALYSTKaylin.? I have independently interviewed and examined the patient and reviewed pertinent history, examination findings, laboratory and plan of management.? I have? reviewed the note and agree with the documented findings with the few? additional points. In brief, patient is 46-year-old female admitted with? worsening confusion, forgetfulness for last 2 days.? She also has cough for the past week.? Recently diagnosed with MRSA in urgent care on Bactrim and Keflex for 4 days prior to admission.? On detailed assessment, management plan admission below 1.? Acute toxic metabolic hepatic encephalopathy secondary to decompensated chronic hepatitis C related cirrhosis: Patient not on lactulose and Xifaxan at home, started on admission.? Goal to have 3 bowel movements per day. 05/21: Acute encephalopathy resolved. Advised adherence to lactulose and Xifaxan. Follow-up with Dr. Porras. CT abdomen individually reviewed reviewed. CT abdomen shows cirrhotic liver with splenomegaly and resolution of mild mesenteric inflammatory changes seen on the prior study. No ascites. 2.? Mild isolated cough with shortness of breath: Patient chest x-ray individually reviewed shows no acute cardiopulmonary abnormality.? No fever.? Rapid COVID antigen, PCR and respiratory panel negative.? Urinary antigens are negative.? Procalcitonin level normal.? Monitor clinically.? Incentive spirometry 3.? Recent facial cellulitis due to MRSA infection: Topical mupirocin.? 05/21: Patient completed Keflex and Bactrim DS. Continue topical mupirocin for 1 week. 4.? Chronic normocytic anemia/iron versus anemia, chronic thrombocytopenia due to decompensated cirrhosis.? Leukocyte count is normal. 5.? Other multiple comorbidities include history of polysubstance use, anxiety and depression, cigarette smoking/nicotine dependence and obesity: Patient U tox is positive for amphetamine, ecstasy, and cannabinoids.? On nicotine patch.? Patient on multiple antipsychotic medications continued.? Prescriptions given for mupirocin ointment to apply on face and nicotine patch. I have discussed my assessment with IT COMPLIANCE ANALYSTKaylin and orders have been reviewed. Discharge medication reconciliation done. Discharge follow-up instructions completed. Discharge process discussed with the patient and all questions were answered to patient's satisfaction. Discharged home. Total time spent, exact 35 minutes on discharge meds reconciliation, examination, coordination of care with nurses and ancillary staff, review of imaging and blood test and discussion with the patient on follow-up instructions. Physical Exam Const alert and oriented x3 Constitutional Narrative: Intermittently drowsy, improved HEENT normocephalic Mouth: Moist mucous membranes Eyes PERRL, EOMs intact bilaterally and conjunctivae normal Neck no lymphadenopathy Resp normal respiratory effort and clear to auscultation bilaterally Cardio regular rate, regular rhythm and no murmurs Peripheral Pulses: pulses 2+ throughout GI normal to inspection, nondistended, normoactive bowel sounds, non-tender and non-distended Extremity normal to inspection Skin no rashes or lesions noted Lesions: no lesions Rashes: no rashes Trauma: no lacerations or abrasions Recent facial cellulitis with chin scabbing Neuro CN's II-XII intact bilaterally, no focal motor deficits, no sensory deficits noted and deep tendon reflexes 2+ bilaterally Psych mental status grossly normal and affect normal Patient seen and examined prior to discharge. Physical assessment as noted above. Patient is stable for discharge with follow up recommendations as noted above. This patient was seen by CONCHIS Bernal under the supervision of Dr. Adams. Time spent examining patient, reviewing data and subsequent management of care: 20 minutes Physical Exam Narrative Seen and examined on the day of discharge. Patient not motivated to walk or move around. Awake alert. Physical exam General: Awake and alert and oriented x3. Talking coherent. HEENT: Atraumatic, PERRLA, EOMI, Normocephalic Oral: No Gingival or Mucosal Lesions/ Ulcerations Neck: Supple, No JVD, Negative Carotid Bruits Lungs:? Air entry diminished in bilateral lung bases.? No crepitation/rhonchi Cardiovascular: Regular rate, Regular Rhythm, Normal S1, Normal S2, No murmurs Abdomen: Bowel Sounds Present, Soft, Non Tender, Non-Distended.? No palpable ascites, no fluid thrill : No renal angle tenderness.? No suprapubic tenderness. Extremities: No edema, Capillary Refill Less than 3 Seconds Skin: No rashes, No breakdown Musculoskeletal: No Tenderness to Palpation of Joints or Extremities. Muscle strength 4/5 at major joints. Neurological: Increased? time to respond.? Nonfocal exam.? States correctly day and date, month, year, place and person.? Psych/Mental Status: Flat affect. No hallucination or delusion. ABG / Lab / Microbiology Data Result Diagrams: 05/21/22 05:30 05/21/22 05:30 Discharge Plan Admission Admit Date/Time: 05/19/22 21:28 Primary Reason for Your Visit: Confusion, toxic metabolic hepatic encephalopathy Attending Provider: Son Adams Primary Care Provider: Ang Acosta Consulting Providers: Sowmya Mirza Discharge Orders/Prescriptions Prescriptions: New lactulose 20 gram/30 mL solution 20 g PO BID Qty: 1200 0RF nicotine 21 mg/24 hr Patch 24 Hour 21 mg transdermal DAILY Qty: 30 0RF mupirocin 2 % Ointment 1 applic topical TID 7 Days Qty: 22 0RF Protocol: *Topical Application Instructions APPLICATION INSTRUCTIONS: To chin. Continued desvenlafaxine 100 mg tablet extended release 24hr 100 mg PO DAILY albuterol sulfate 1 PUFF inhaler 1 - 2 puff inhalation Q4H PRN PRN (Reason: Sob &/Or Wheezing) ibuprofen 800 mg tablet 800 mg PO Q8H PRN (Reason: pain) Qty: 30 0RF Vitamin D3 1,250 mcg OTHER QWEEK Rx Instructions: TAKES ON MODAY BY MOUTH pantoprazole 40 mg Tablet,Delayed Release (Dr/Ec) 40 mg PO BID Rx Instructions: BEFORE MEALS furosemide 20 mg tablet 20 mg PO DAILY Label Comments: Take 1 tablet by mouth once daily. topiramate 100 mg tablet 100 mg PO BID Rx Instructions: BEFORE MEALS Changed trazodone 100 mg tablet 100 mg PO QHS Qty: 1 0RF gabapentin 300 mg capsule 100 mg PO BID Qty: 1 0RF Referrals / Follow Up: Ang Acosta MD [Primary Care Provider] - In 1 Week José Porras DO [Med Staff - Active Staff] - In 1 Week Disposition Disposition (needs filled in before D/C Order can be placed): Home, Self Care Charges/Coding Visit Charges Inpatient E&M: 16303 Disch Hosp
[2022-05-21 13:25] VITALS: BP 100/65; PULSE 71; RESP 16; TEMP 36.6; O2SAT 100
--- NOTE | 2022-05-21 14:05 | CASEMGMT ---
NASH SOUZA GEOGR[employer]HY FACULTY MEMBER CM to room to meet with patient for initial transition planning/care coordination assessment. NASH SOUZA introduced self and role at [facility].? Pt voices understanding and consents to assessment at this time.? Pt sitting up in W/C, ready to go home. Pt is Alert/oriented and able to answer questions appropriately. Care providers, pharmacy, and demographics verified/updated at this time. PCP: Dr Acosta Specialists: none Preferred Pharmacy:[facility] Insurance: [employer] Prescription Benefit:?Yes Living Will/HPOA:? Pt does not currently have LW/HCPOA LNOK: Daughter, Vannesa. Sig other, Osmin Living Arrangements: Lives w/sig other, Osmin, in 2-story home w/couple steps to enter. Pt states she is independent @ her baseline. Transportation:?Pt does not drive. DME: ? Denies using any DME and denies needs.? HHC/SNF: No history of either. No needs identified. Pt wishes to return home and states has no concerns with going home. PLAN:??Home Diane LARKIN RN, CM
== END 2022-05-21 14:06 | disposition home or self-care (01) ==
LOC: ED 18:10 → MS3 21:46
PROVIDERS: Nurse Practitioner Family; Admitting Provider Family Medicine; Emergency Provider Emergency Medicine; PCP Family Medicine; Visit Provider Internal Medicine
DX: K74.60 Unspecified cirrhosis of liver (principal); E72.20 Disorder of urea cycle metabolism, unspecified; D63.8 Anemia in other chronic diseases classified elsewhere; B18.2 Chronic viral hepatitis C; D50.9 Iron deficiency anemia, unspecified; F17.210 Nicotine dependence, cigarettes, uncomplicated; D69.59 Other secondary thrombocytopenia; F19.10 Other psychoactive substance abuse, uncomplicated; E86.0 Dehydration; F41.9 Anxiety disorder, unspecified; N28.9 Disorder of kidney and ureter, unspecified; Z20.822 Contact with and (suspected) exposure to COVID-19; G47.00 Insomnia, unspecified; F32.A Depression, unspecified; E66.9 Obesity, unspecified; Z68.34 Body mass index [BMI] 34.0-34.9, adult; Z79.52 Long term (current) use of systemic steroids; Z79.899 Other long term (current) drug therapy
CPT/HCPCS: 36415; 71045; 71046; 74176; 80048; 80053; 80076; 80307; 81001; 82140; 83735; 84100; 84145; 85025; 85610; 87086; 87088; 87449; 87633; 87635; 87811; 97162; 97166; 99251; 99285; 99406; J7030; P9612; A4216; G0463; U0003; U0005

== ENCOUNTER → 2022-08-27 | Outpatient (CLI) | payer MEDICAID, SELFPAY ==
[2022-08-27 15:51] LABS: Absolute Lymphocyte Count 2.01 X10^3/uL (0.83-4.51); Absolute Neutrophil Count 3.2 X10^3/uL (2.0-7.7); Basophil# 0.04 X10^3/uL; Basophil% 0.7 % (0-1); Eosinophil# 0.16 X10^3/uL; Eosinophils% 2.7 % (0-5); Hematocrit 32.1 % (37-47); Hemoglobin 9.9 g/dL (12.0-15.0); Lymphocyte # 2.01 X10^3/ul (0.83-4.51); Lymphocyte % 33.7 % (19-41); Mean Corp Hgb Conc 30.8 g/dL (32-36); Mean Corpuscular Hgb 24.6 pg (27.0-32.0); Mean Corpuscular Volume 79.7 fL (81-99); Monocyte% 8.4 % (0-10); NRBC Flagged by Analyzer 0 % (0-5); Neutrophil # 3.22 X10^3/uL (2.7-7.7); POSITIVE COUNT YES; Platelet Count 70 K/mm3 (150-450); RBC Distribution Width CV 19.5 % (11.6-14.6); Red Blood Count 4.03 M/mm3 (4.2-5.4)
[2022-08-27 15:57] LABS: International Normalized Ratio 1.5; Prothrombin Time (Protime)PT. 17.5 SECONDS (11.7-14.9)
[2022-08-27 16:08] LABS: Differential Indicated SCAN CRITERIA MET
[2022-08-27 16:09] LABS: Erythrocyte Sedimentation Rate 51 mm/hr (0-30)
[2022-08-27 16:24] LABS: Differential Comment SCANNED
[2022-08-27 16:31] LABS: Hemoglobin A1c 5.1 % (3.8-5.6)
[2022-08-27 16:45] LABS: ALB/GLOB Ratio 0.6 RATIO (0.9-2.4); AST(SGOT) 112 U/L (15-37); Alanine Aminotransfer ALT/SGPT 69 U/L (13-56); Albumin, Serum 2.9 g/dL (3.2-5.0); Alkaline Phosphatase 151 U/L (45-117); Anion Gap 6 (5-15); BUN 9 mg/dL (7-18); BUN/Creat Ratio 9.6 RATIO (10-20); CRP 5.71 mg/L (0.0-3.0); Chloride 113 mmol/L (98-107); Creatinine, Serum 0.94 mg/dL (0.55-1.02); EST Glomerular Filtration Rate 67 mL/min (>60); Est Glom Filt Rate - Afr Amer 81 mL/min (>60); Ferritin 7 ng/mL (8-252); Glucose 87 mg/dL (74-106); LDH 172 U/L (84-246); Potassium 3.8 mmol/L (3.5-5.1); Protein, Total 7.9 g/dL (6.4-8.2); Sodium Level 140 mmol/L (136-145)
[2022-08-27 16:56] LABS: HIV - WCH Non-Reactive (Nonreactive)
[2022-08-30 17:07] LABS: Anti-Centromere B Ab <0.2 AI (0.0-0.9); Anti-Chromatin <0.2 AI (0.0-0.9); Anti-Jo <0.2 AI (0.0-0.9); Anti-Scleroderma-70 AB <0.2 AI (0.0-0.9); RNP Ab 0.2 AI (0.0-0.9); SJOGREN'S Anti-SS-A test < 0.2 AI (0.0-0.9); SJOGREN'S Anti-SS-B test < 0.2 AI (0.0-0.9); Smith Ab <0.2 AI (0.0-0.9)
[2022-08-30 20:42] LABS: Anti-Mitochondrial AB <20.0 Units (0.0-20.0); Anti-dsDNA Ab 3 IU/mL (0-9)
== END | disposition home or self-care (01) ==
PROVIDERS: PCP Family Medicine; Visit Provider Internal Medicine Gastroenterology
DX: S00.81XA Abrasion of other part of head, initial encounter (principal); B18.2 Chronic viral hepatitis C
CPT/HCPCS: 36415; 80053; 80074; 82105; 82140; 82164; 82390; 82525; 82728; 83010; 83036; 83516; 83615; 85025; 85610; 85652; 86140; 86225; 86235; 86256; 86703; 87902

== ENCOUNTER 2022-09-15 07:12 | Day surgery (SDC) | payer MEDICAID, SELFPAY ==
[2022-09-15 07:44] VITALS: BP 135/79; PULSE 74; RESP 18; TEMP 36.8; O2SAT 98; BMI 35.4
[2022-09-15] MEDS: Lactated Ringers 1,000 ML 15 ML IV (07:48)
--- NOTE | 2022-09-15 08:18 | PCM.HP.BLA ---
History and Physical Date of Admission: 09/15/22 [facility] [address] [place] [address] OFFICE VISIT Date of Service:? 08/27/22 MR#: [id number] Acct: [id number] Name:CAROLNIA DELCID Rep #: [id number] : 1975 ? ? Provider: José Friend, DO Age/Sex:? 46/F ? ? Location: [facility] [place] Status: Signed Intake Vital Signs ? 05/20/2213:41 Height 5 ft 2 in Intake Visit Reasons:?H FU Allergies bupropion HCl [From Wellbutrin] Allergy (Verified 05/19/22 17:09) SEIZUREScodeine Allergy (Verified 05/19/22 17:09) Rash PFSH Medical History Acute insomnia Anxiety and depression Chronic anemia Obesity Polysubstance abuse Thrombocytopenia Tobacco use Surgical History? H/O tubal ligation History of liver biopsy Family History?(Updated 05/19/22 @ 21:[address] Sowmya Mirza MD) Mother DiabetesFather Cancer ?? ? HX Throat CA. Social History?(Updated 05/19/22 @ 21:[address] Sowmya Mirza MD) adopted:? No household members:? family housing:? other number of children:? 3 current occupational status:? unemployed pets and animals:? Yes history of recent travel:? No sexually active:? Yes Smoking Status:? Current every day smoker tobacco type: cigarettes second hand exposure:? Yes alcohol intake:? current alcohol intake frequency: a few times a month substance use type:? former substance user Date of last use: heroin, marijuana, heroin and methamphetamine seatbelt use:? always do you feel safe at home:? Yes HPI HPI Details: CAROLINA HIGHTOWER, is a 46 F who presents to the office today for Initial consult. Carolina established with this clinic 08.09.22 following [facility] hospitalization. She presented to [facility] ED 05.19.22 with increased fatigue, forgetfulness and confusion. History of HCV with remote history of IV drug use with possible cirrhosis with thrombocytopenia through [facility]. She was admitted for acute HE secondary to decompensated cirrhosis with hyperammonemia treated with lactulose. Discharged home 05.21.22. CT abd/pel 5.17.19 abd pain with normal liver without lesions; splenomegaly 15.1cm; renal calculi. Imaging prior to this with normal liver and without splenomegaly. Fib4 1.82 CT abd/pel 9.17.21 pain HCV Hx with moderately cirrhotic liver with volume redistribution to right lobe without ascites; moderate splenomegaly; inflammation of subhepatic space r/t right colon. Fib4 8.76 CT abd/pel 05.19.22 with cirrhotic liver with prominent caudate lobe and nodular surface without mass; splenomegaly; pancreatic calcification in uncinate process; renal calculi. Resolution of previously noted inflammation. Fib4 11.76 MELD 05.19.22 13?? 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 Carolina has a sore on her chin that has been present for multiple years. No pruritis, jaundice She is having issues with lightheadedness with quick movements causing loss of balance, memory loss and brain fog is a difficulty, sleep pattern is disturbed for many years. She does have a lot of psychiatric diagnoses. Feels like she has been having an increased appetite. Constipation is an issue with BM 1-2 times a week. Lactulose caused nausea and generally feeling unwell. Furosemide stopped because it was causing nocturia. ROS Const Constitutional: No anorexia, fatigue, fever(s), weight change or sleep problems Eyes Eyes: No change in vision ENT ENT: No abnormal hearing, difficulty swallowing, mouth lesions, tongue swelling or throat swelling Resp Respiratory: No cough or shortness of breath Cardio Cardiology: No chest pain at rest, chest pain with exertion, shortness of breath or dyspnea on exertion Gastro GI: No difficulty swallowing Genitourinary-Female: No difficulty urinating or burning urination Musc Musculoskeletal: No joint pain, joint swelling, muscle weakness or decreased muscle mass Skin Skin: No hair loss in leg, yellowing of the eye, itchy eyes, rash, skin ulcer or skin swelling Neuro Neurology: No abnormal hearing, abnormal movements, confusion, unsteady gait/balance or memory loss Psych Psychiatric: No anxiety, No confusion and No memory loss Endo Endocrine: No fatigue or weight change Aller/Imm Allergy/Immunologic: No itchy eyes, throat swelling or tongue swelling Emilio/Lymp Hematologic/Lymphatic: No easy bleeding, easy bruising or enlarged lymph nodes Exam Const General: cooperative and comfortable Nutritional Appearance: average body habitus and well nourished [facility] Head: normal to inspection Ears: hearing grossly normal bilaterally Nose: external nose normal Face and sinus: normal facial exam Mouth: oral mucosae normal Throat: posterior oropharynx normal Eyes General: appearance normal, both eyes and all related structures Neck Neck: normal visual inspection Chest Chest palpation & inspection: normal inspection of the chest and normal palpation of entire chest wall Resp Effort & Inspection: normal respiratory effort Auscultation: Bilateral: Clear to Auscultation Cardio Palpation: normal PMI Rate: regular rate Rhythm: regular rhythm GI Inspection: normal to inspection Auscultation: normal bowel sounds Percussion: normal to percussion Palpation: no hepatosplenomegaly Skin General: no rashes or lesions noted Neuro General: patient alert Extrem General: normal to inspection Psych Affect: normal affect Quality Reporting Tobacco Screening ([facility] 138) Smoking Status: Current every day smoker Assessment and Plan Assessment and Plan (1) Cirrhosis of liver: ?Status:?Chronic ?Plan: At this time she has a child Palma class a, with a meld of 10.? Her fib 4 score is 10.3.? We are awaiting her FibroScan and possible liver biopsy.? She is not displaying any ascites, lower extremity edema, encephalopathy, GI bleeding.? Her cirrhosis is complicated by thrombocytopenia, leukopenia and macrocytic anemia.? We will recheck her CBC with differential as well as her INR.? Her last INR was 1.3.? We will send her a prescription for Xifaxan 5 and 50 mg twice a day because she does not want to take lactulose.? Her blood pressure has been on the lower side so we will not institute beta-sterling therapy at this time.? I am concerned about compliance with possible beta-sterling for variceal prophylaxis. (2) Hepatitis C, chronic: ?Status:?Chronic ?Plan: She is known to have history of chronic hepatitis C with cirrhosis.? We will recheck her hepatitis C PCR RNA quant she is known to be genotype 2b.? She said she had a liver biopsy in the past that did not show cirrhosis but this was 7 years ago.? We have images that show cirrhosis with splenomegaly varices in the stomach and esophagus.? We will need to check her for HIV and hepatitis B.? If she is HIV or hepatitis B positive then we may not be able to give her a direct antiviral agent.? The plan is at this time to give her 12 weeks of Epclusa and ribavirin.? She has had a normal alpha-fetoprotein is her CT scan abdomen pelvis did not show any liver masses. ? Orders: Orders HIV - [facility] Today B18.2 - Chronic viral hepatitis C, S00.81XA - Abrasion of other part of head, initial encounter ? Comprehensive Metabolic Profil Today B18.2 - Chronic viral hepatitis C, S00.81XA - Abrasion of other part of head, initial encounter ? CRP Today B18.2 - Chronic viral hepatitis C, S00.81XA - Abrasion of other part of head, initial encounter ? Ferritin Today B18.2 - Chronic viral hepatitis C, S00.81XA - Abrasion of other part of head, initial encounter ? LDH Today B18.2 - Chronic viral hepatitis C, S00.81XA - Abrasion of other part of head, initial encounter ? Hemoglobin A1c Today B18.2 - Chronic viral hepatitis C, S00.81XA - Abrasion of other part of head, initial encounter ? Prothrombin Time w/INR Today B18.2 - Chronic viral hepatitis C, S00.81XA - Abrasion of other part of head, initial encounter ? CBC W/Diff, Automated Today B18.2 - Chronic viral hepatitis C, S00.81XA - Abrasion of other part of head, initial encounter ? Erythrocyte Sed Rate Today B18.2 - Chronic viral hepatitis C, S00.81XA - Abrasion of other part of head, initial encounter ? Anti-Mitochondrial AB Today B18.2 - Chronic viral hepatitis C, S00.81XA - Abrasion of other part of head, initial encounter ? DEISY Comprehensive Panel Today B18.2 - Chronic viral hepatitis C, S00.81XA - Abrasion of other part of head, initial encounter ? Hepatitis Panel Acute Today B18.2 - Chronic viral hepatitis C, S00.81XA - Abrasion of other part of head, initial encounter ? Angiotensin Convert Enzyme Today B18.2 - Chronic viral hepatitis C, S00.81XA - Abrasion of other part of head, initial encounter ? AFP, Tumor Marker Today B18.2 - Chronic viral hepatitis C, S00.81XA - Abrasion of other part of head, initial encounter ? ANCA Today B18.2 - Chronic viral hepatitis C, S00.81XA - Abrasion of other part of head, initial encounter ? Anti-Smooth Muscle ABS Today B18.2 - Chronic viral hepatitis C, S00.81XA - Abrasion of other part of head, initial encounter ? Ceruloplasmin Today B18.2 - Chronic viral hepatitis C, S00.81XA - Abrasion of other part of head, initial encounter ? Copper, Serum or Plasma Today B18.2 - Chronic viral hepatitis C, S00.81XA - Abrasion of other part of head, initial encounter ? Haptoglobin Today B18.2 - Chronic viral hepatitis C, S00.81XA - Abrasion of other part of head, initial encounter ? Hepatitis C Genotype Today B18.2 - Chronic viral hepatitis C, S00.81XA - Abrasion of other part of head, initial encounter ? Ammonia Today B18.2 - Chronic viral hepatitis C, S00.81XA - Abrasion of other part of head, initial encounter ? Biopsy/Inj or Needle Placement Today K74.60 - Unspecified cirrhosis of liver ? I have examined the patient and the H&P has been reviewed. There are no clinical changes since date of exam.
--- NOTE | 2022-09-15 08:30 | EGD_PTH ---
PATIENT: CAROLINA HIGHTOWER LOC: EN U#:[id number] AGE/SX: 46/F ROOM: RE09/15/[address]: Dr. José Porras DO : 1975 BED: DIS: 09/15/2022 SPEC #: [id number] RECD: 09/15/22 10:08 STATUS: TRAMAINE MIKE #: [id number] KYLAH: 09/15/22 08:[address]: José Porras DEPT: SURGICAL PATHOLOGY RECD BY: Mayra Sanders ENTERED: 09/15/22 10:56 SP TYPE: EGD BIOPSY OT DR: Dr. Ang Acosta MD Tissues: Gastric mucous membrane Procedures: Surgery Specimen Level IV HEADER OPERATION: EGD ([facility]), biopsy PRE-OP DIAGNOSIS: Cirrhosis of liver, hepatitis C TISSUE SUBMITTED: Gastric body biopsy MICROSCOPIC DIAGNOSIS Gastric body, biopsy: Moderate gastritis. See microscopic description and comment. SJ:samy 09/16/2022 COMMENT The results of immunohistochemistry for Helicobacter pylori will be reported separately ([id number]). MICROSCOPIC DESCRIPTION Slides are reviewed. The specimen shows fragments of gastric mucosa with chronic inflammatory cell infiltrates in the lamina propria consisting of lymphocytes and plasma cells, consistent with moderate chronic gastritis. GROSS DESCRIPTION Received in fixative is one container labeled with the patient's name and designated gastric body biopsy. The specimen consists of multiple irregular fragments of light poole soft tissue that in aggregate measure 0.7 x 0.6 x 0.1 cm. The specimen is totally submitted in one cassette. / SJ:samy 09/15/2022 TC:3 CPT: 46019
--- NOTE | 2022-09-15 08:30 | IMM_PTH ---
PATIENT: CAROLINA HIGHTOWER LOC: EN U#:[id number] AGE/SX: 46/F ROOM: RE09/15/[address]: Dr. José Porras DO : 1975 BED: DIS: 09/15/2022 SPEC #: [id number] RECD: 09/15/22 13:37 STATUS: TRAMAINE REQ #: [id number] KYLAH: 09/15/22 08:[address]: José Porras DEPT: IMMUNOHISTOCHEMISTRY RECD BY: Amalia Antony ENTERED: 09/15/22 13:38 SP TYPE: IMMUNO OTHR DR: Dr. Ang Acosta MD Tissues: Stomach, NOS Procedures: H Pylori (initial) PHYSICIAN & INSTITUTION [place] [id number] SPECIMEN INFORMATION: Tissue Source: Gastric body Clinical Info: Cirrhosis of liver, hepatitis C Specimen Number: [id number] CPT code: 35518 METHODOLOGY: Deparaffinized sections of prefer/formalin-fixed tissue or PAP/DQ stained slides are incubated with monoclonal/polyclonal antibodies/oligonucleotide probes. Localization is made via biotin free immunoperoxidase method. Appropriate controls are performed and reacted as expected. Results on target cell population are indicated in the following table: RESULTS: ANTIBODY / CLONE RESULT H Pylori (polyclonal) negative These tests were developed and their performance characteristics determined by [facility]. They may not have been cleared or approved by the U.S. Food and Drug Administration. The FDA has determined that such clearance or approval is not necessary. The above immunohistochemical/dualISH markers are ordered and reviewed by the Pathologist. INTERPRETATION: Gastric body, biopsy: Negative for Helicobacter pylori organisms. SJ:samy 09/16/2022
[2022-09-15 08:40] VITALS: BP 119/75; BP 135/79; PULSE 72; RESP 16; TEMP 36.8; O2SAT 95
--- NOTE | 2022-09-15 08:43 | OP.EGD_ITS ---
Patient Name: Carey Bonilla Procedure Date: 09/15/2022 8:19 AM Date of : 1975 Age: 46 Procedure: Upper GI endoscopy Indications: Cirrhosis with suspected esophageal varices Providers: José Porras DO Medicines: Propofol per Anesthesia Patient Profile: This is a 46 year old female. Refer to note in patient chart for documentation of history and physical. Patient has symptoms of chronic dyspepsia, chronic nausea and chronic vomiting. Complications: No immediate complications. Procedure: Pre-Anesthesia Assessment: - Prior to the procedure, a History and Physical was performed, and patient medications and allergies were reviewed. The risks and benefits of the procedure and the sedation options and risks were discussed with the patient. All questions were answered and informed consent was obtained. Patient identification and proposed procedure were verified by the physician in the pre-procedure area. Mental Status Examination: alert and oriented. Airway Examination: normal oropharyngeal airway and neck mobility. Respiratory Examination: clear to auscultation. CV Examination: normal. Prophylactic Antibiotics: The patient does not require prophylactic antibiotics. Prior Anticoagulants: The patient has taken no previous anticoagulant or antiplatelet agents. ASA Grade Assessment: II - A patient with mild systemic disease. After reviewing the risks and benefits, the patient was deemed in satisfactory condition to undergo the procedure. The anesthesia plan was to use monitored anesthesia care (MAC). Immediately prior to administration of medications, the patient was re-assessed for adequacy to receive sedatives. The heart rate, respiratory rate, oxygen saturations, blood pressure, adequacy of pulmonary ventilation, and response to care were monitored throughout the procedure. The physical status of the patient was re-assessed after the procedure. After obtaining informed consent, the endoscope was passed under direct vision. Throughout the procedure, the patient's blood pressure, pulse, and oxygen saturations were monitored continuously. The Endoscope was introduced through the mouth, and advanced to the second part of duodenum. The upper GI endoscopy was accomplished without difficulty. The patient tolerated the procedure well. Scope In: 8:28:54 AM Scope Out: 8:33:26 AM Total Procedure Duration Time 0 hours 4 minutes 32 seconds Findings: Grade I varices were found in the distal esophagus. They were 2 mm in largest diameter. Severe portal hypertensive gastropathy was found in the entire examined stomach. Biopsies were taken with a cold forceps for histology. Verification of patient identification for the specimen was done. Estimated blood loss was minimal. The second portion of the duodenum was normal. Impression: - Grade I esophageal varices. - Portal hypertensive gastropathy. Biopsied. - Normal second portion of the duodenum. Recommendation: - Discharge patient to home. - Resume previous diet. - Continue present medications. Procedure Code(s): --- Professional --- 96184, Esophagogastroduodenoscopy, flexible, transoral; with biopsy, single or multiple CPT copyright 2017 [employer] [employer]. All rights reserved. The codes documented in this report are preliminary and upon improvement director review may be revised to meet current compliance requirements. José Porras DO 09/15/2022 8:43:34 AM This report has been signed electronically. Number of Addenda: 0 Note Initiated On: 09/15/2022 8:19 AM
--- NOTE | 2022-09-15 08:43 | OP.CCLET_ITS ---
09/15/2022 Ang Acosta [address] [place] [address] Re : Upper GI endoscopy procedure for Carey Bonilla Dear Dr. Acosta This procedure was performed on Thursday, September 15, 2022. My impressions and recommendations are as follows: Impressions : - Grade I esophageal varices. - Portal hypertensive gastropathy. Biopsied. - Normal second portion of the duodenum. Recommendations : - Discharge patient to home. - Resume previous diet. - Continue present medications. My findings are described in the full procedure note, which is enclosed. If I can be of further assistance, please feel free to contact me at . Sincerely, José Porras, 09/15/2022 8:43:34 AM This report has been signed electronically.
[2022-09-15 08:45] VITALS: BP 119/77; BP 135/79; PULSE 75; RESP 16; O2SAT 95
[2022-09-15 08:50] VITALS: BP 116/78; BP 135/79; PULSE 81; RESP 16; O2SAT 96
[2022-09-15 08:55] VITALS: BP 131/88; BP 135/79; PULSE 74; RESP 73; TEMP 36.6; O2SAT 96
[2022-09-15 09:26] VITALS: BP 135/79
== END 2022-09-15 10:27 | disposition home or self-care (01) ==
LOC: EN 07:13 → AC 07:14
PROVIDERS: PCP Family Medicine; Referring Provider Family Medicine; Visit Provider Internal Medicine Gastroenterology
PROC: 0DJ08ZZ Inspection of Upper Intestinal Tract, Via Natural or Artificial Opening Endoscopic (ICD-10-PCS; CPT 43235; principal; 2022-09-15 08:25)
DX: K74.60 Unspecified cirrhosis of liver (principal); K76.6 Portal hypertension; I85.00 Esophageal varices without bleeding; D69.6 Thrombocytopenia, unspecified; B18.2 Chronic viral hepatitis C; K29.70 Gastritis, unspecified, without bleeding; G47.00 Insomnia, unspecified; D53.9 Nutritional anemia, unspecified; E66.9 Obesity, unspecified; F17.210 Nicotine dependence, cigarettes, uncomplicated; K31.89 Other diseases of stomach and duodenum
CPT/HCPCS: 43239; 88305; 88342; J7120; J2405

== ENCOUNTER 2023-04-25 13:50 | Emergency (ER) | payer MEDICAID, SELFPAY ==
[2023-04-25 13:53] VITALS: BP 133/97; PULSE 73; RESP 20; TEMP 36.3; O2SAT 99; BMI 38.5
[2023-04-25 14:41] LABS: Absolute Lymphocyte Count 1.45 X10^3/uL (0.83-4.51); Basophil# 0.03 X10^3/uL; Basophil% 0.5 % (0-1); Eosinophil# 0.18 X10^3/uL; Hematocrit 35.3 % (37-47); Hemoglobin 10.7 g/dL (12.0-15.0); Lymphocyte # 1.45 X10^3/ul (0.83-4.51); Lymphocyte % 24.1 % (19-41); Mean Corp Hgb Conc 30.3 g/dL (32-36); Mean Corpuscular Hgb 22.7 pg (27.0-32.0); Mean Corpuscular Volume 74.8 fL (81-99); Monocyte# 0.36 X10^3/uL; NRBC Flagged by Analyzer 0 % (0-5); Neutrophil # 3.98 X10^3/uL (2.7-7.7); Neutrophil % 66.1 % (47-70); POSITIVE COUNT YES; POSITIVE MORPHOLOGY YES; Platelet Count 81 K/mm3 (150-450); RBC Distribution Width CV 21.6 % (11.6-14.6); RBC Distribution Width SD 56.5 fl (35.1-43.9); Red Blood Count 4.72 M/mm3 (4.2-5.4)
[2023-04-25 14:55] LABS: Differential Indicated SCAN CRITERIA MET
[2023-04-25 14:57] LABS: ALB/GLOB Ratio 0.7 RATIO (0.9-2.4); AST(SGOT) 219 U/L (15-37); Alanine Aminotransfer ALT/SGPT 113 U/L (13-56); Alkaline Phosphatase 153 U/L (45-117); Anion Gap 4 (5-15); BUN 7 mg/dL (7-18); BUN/Creat Ratio 7.4 RATIO (10-20); Calcium,Total 8.9 mg/dL (8.5-10.1); Chloride 113 mmol/L (98-107); Creatinine, Serum 0.94 mg/dL (0.55-1.02); EST Glomerular Filtration Rate 67 mL/min (>60); Est Glom Filt Rate - Afr Amer 81 mL/min (>60); Estimated Creatinine Clearance 57.26 ml/min; Globulin 4.3 g/dL (2.2-4.2); Glucose 171 mg/dL (74-106); Potassium 3.9 mmol/L (3.5-5.1); Protein, Total 7.3 g/dL (6.4-8.2); Sodium Level 140 mmol/L (136-145)
--- NOTE | 2023-04-25 15:30 | EDS_ITS ---
HPI History of Present Illness Chief Complaint: Abd Pain Detail of Chief Complaint: Abdominal wall bruising and abdominal pain Informant: patient Onset/Context/Timing Onset: Yesterday Context: Sudden Onset Timing: Continuous Quality: Patient has bruises across her mid abdomen. She also complains of abdomina Location: Bruising is mid abdomen discomfort is generalized Current Severity: Mild Maximum Severity: Moderate Worsened by: Nothing per patient Relieved by: Nothing Associated Symptoms Associated Symptoms: Possibly hematuria and epistaxis Narrative Narrative: Patient is a 47-year-old woman who presents with bruising to her abdomen, abdominal pain, and reports history of hepatitis C. She denies history of cirrhosis. She denies fever, chills night sweats. She denies headache, visual, ocular or auditory symptoms. She does endorse occasional nosebleed that is atraumatic. She also reports bleeding of her gums. She denies sore throat. Denies cough or shortness of breath. She denies chest discomfort. She denies black or maroon-colored stool. She denies dysuria or urgency. She denies vaginal bleeding. She is not on an anticoagulant. She does endorse smoking daily and occasional methamphetamine use. She has not had an alcoholic beverage recently. She denies weight gain or weight loss. She denies night sweats. She denies back pain. She does endorse change in color of her urine. Prior similar symptoms: No Recent Illness/Hospitalization: No PFSH PFSH Medical History Acute insomnia Anemia Anxiety Anxiety and depression Chronic anemia COPD (chronic obstructive pulmonary disease) Depression Difficulty chewing Gastric reflux Hepatitis History of diverticulitis History of renal disease Low iron Marijuana use Migraine headache MRSA infection Obesity Polysubstance abuse Rash Seizures Shortness of breath on exertion Smoker Substance abuse Thrombocytopenia Tobacco use Home Medications desvenlafaxine 100 mg tablet,extended release 24 hour 100 mg PO DAILY NERVE PAIN 02/20/19 [History Last Taken Unknown] albuterol sulfate 90 mcg/actuation aerosol inhaler 1 - 2 puff inhalation Q4H PRN PRN Sob &/Or Wheezing 06/11/19 [History Last Taken Unknown] Vitamin D3 1,250 mcg OTHER QWEEK SUPPLEMENT 05/20/22 [History Last Taken Unknown] pantoprazole 40 mg tablet,delayed release 40 mg PO BID GERD 05/20/22 [History Last Taken Unknown] topiramate 100 mg tablet 100 mg PO BID PER GASTRO 05/20/22 [History Last Taken Unknown] gabapentin 300 mg capsule 100 mg (0.3333 x 300 mg) PO BID NERVE PAIN #1 cap 05/21/22 [Rx Last Taken Unknown] trazodone 100 mg tablet 100 mg PO QHS SLEEP #1 TAB 05/21/22 [Rx Last Taken Unknown] aripiprazole 30 mg tablet 30 mg PO DAILY 09/14/22 [History Last Taken Unknown] cyclobenzaprine 10 mg tablet 10 mg PO TID PRN Pain 09/14/22 [History Last Taken Unknown] Allergy/AdvReac Type Severity Reaction Status Date / Time bupropion HCl Allergy SEIZURES Verified 04/25/23 13:53 [From Wellbutrin] codeine Allergy Rash Verified 04/25/23 13:53 Family History Mother Diabetes Father Cancer HX Throat CA. 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, marijuana, heroin and methamphetamine seatbelt use: always do you feel safe at home: Yes ROS ROS ED Constitutional Constitutional ED: Denies chills, fever(s), subjective, sweats or weight loss Eyes Eyes: Denies blurry vision, change in vision or diplopia ENT ENT ED: Reports other Details: Further detailed HPI narrative ; Denies ear pain, rhinorrhea or sore throat Cardiovascular Cardiovascular: Denies orthopnea, palpitations or paroxysmal nocturnal dyspnea Respiratory/Chest Respiratory/Chest: Denies cough, dyspnea, dyspnea on exertion, orthopnea or paroxysmal nocturnal dyspnea Gastrointestinal Gastrointestinal: Reports abdominal pain and nausea; Denies constipation, diarrhea, melena or vomiting Genitourinary Genitourinary ED: Reports hematuria; Denies dysuria or urinary frequency Musculoskeletal Musculoskeletal: Denies arthralgias, back pain, myalgias or neck pain Integumentary Denies abscess, Abrasions or rash Neurologic Neurologic: Denies headache(s), paresthesias or weakness Psychiatric Psychiatric: Denies anxiety or depression Hematologic/Lymphatic Hematologic/Lymphatic: Reports systems reviewed and no addt'l complaints, except as documented Allergic/Immunologic Allergic/Immunologic ED: Denies mouth swelling, tongue swelling or urticaria EXAM Physical Exam Const Vital Signs: 04/25/23 13:53 Temperature 97.3 F L Temperature Source Temporal Pulse Rate 73 Respiratory Rate 20 H Blood Pressure 133/97 H Blood Pressure Mean 109 Pulse Ox 99 Oxygen Delivery Method Room Air Positive well nourished, well developed, obese and unkempt General Appearance ED: unkempt, well developed and NAD; Negative for cyanotic, diaphoretic or pallor Nutritional Appearance: obese HEENT Reports moist mucous membranes HEENT Narrative: Head is atraumatic normocephalic. Ears are normal. TMs are normal. Nares patent with no discharge. Posterior pharynx out erythema or exudate. Uvula is midline. Eyes PERRL and EOMs intact bilaterally General Eye ED: Negative for pale conjunctiva or scleral icterus Neck no lymphadenopathy, supple and no JVD Neck Narrative: Trachea is midline. Chest Wall inspection of chest normal and palpation of chest normal Resp normal respiratory effort and clear to auscultation bilaterally Cardio regular rate, regular rhythm, S1 normal heart sound, S2 normal heart sound and no murmurs GI Negative for normal to inspection, nondistended, normoactive bowel sounds GI Narrative: Patient has bruising. After further discussion this may be due to the fact that she has to shimmy into the bathroom past the washer and this could be due to shwetha nt trauma. Abdomen is not distended. There is no tympany. There is no fluid wave. There is no palpable mass. Auscultation: hypoactive bowel sounds Palpation: soft; Negative for guarding, splenomegaly, mass or rebound tenderness present Back/Spine no CVA tenderness Thoracic Spine / Upper Back: Negative for thoracic spinal tenderness Lumbar Spine / Lower Back: Negative for lumbar spinal tenderness Extremity normal to inspection General Extremety ED: Negative for edema or tenderness General Extremity: Negative for edema Neuro oriented x3 and no sensory deficits noted Sensorium / Orientation: alert Motor Exam: strength 5/5 throughout Psych mental status grossly normal Appearance: unkempt Skin no rashes or lesions noted, No no wounds and skin turgor normal Skin Narrative: Bruising right and left mid abdomen linear distribution approximately 3 cm band. General Skin Exam: Negative for jaundice or pallor MDM MDM MDM Narrative Medical decision making narrative: With history of liver disease, hepatitis and bruising will obtain PT/INR to assess liver function. CBC to assess white count, hemoglobin and platelet count. Electrolyte panel to assess kidney function. Lab Data Attestation: I reviewed the patient's lab results. Lab results narrative: CBC reveals microcytic kidney Amisha. Basic metabolic panel was not elevated total bili 1.4 with an elevated AST and ALT of 219 and 113 respectively. Alkaline phosphatase is slightly elevated 153. Total protein and albumin are normal. Labs: Laboratory Results - last 24 hr 04/25/23 04/25/23 04/25/23 14:20 15:38 15:52 WBC 6.0 RBC 4.72 Hgb 10.7 L Hct 35.3 L MCV 74.8 L MCH 22.7 L MCHC 30.3 L RDW Std Deviation 56.5 H RDW Coeff of Katalina 21.6 H Plt Count 81 L Immature Gran % (Auto) 0.300 Neut % (Auto) 66.1 Lymph % (Auto) 24.1 [place] % (Auto) 6.0 Eos % (Auto) 3.0 Baso % (Auto) 0.5 Absolute Neuts (auto) 4.0 Absolute Lymphs (auto) 1.45 Nucleated RBC % 0 Differential Comment SCANNED PT 17.0 H INR 1.4 Sodium 140 Potassium 3.9 Chloride 113 H Carbon Dioxide 23.0 Anion Gap 4 L BUN 7 Creatinine 0.94 Estim Creat Clear Calc 57.26 Est GFR (MDRD) Af Amer 81 Est GFR (MDRD) Non-Af 67 BUN/Creatinine Ratio 7.4 L Glucose 171 H Calcium 8.9 Total Bilirubin 1.40 H AST 219 H ALT 113 H Alkaline Phosphatase 153 H Total Protein 7.3 Albumin 3.0 L Globulin 4.3 H Albumin/Globulin Ratio 0.7 L Urine Color Yellow Urine Clarity Clear Urine pH 7.0 Ur Specific [place] 1.020 Urine Protein 30 H Urine Glucose (UA) Normal Urine Ketones 5 H Urine Occult Blood 50 H Urine Nitrite Negative Urine Bilirubin 1 H Urine Urobilinogen 4 H Ur Leukocyte Esterase 25 H Urine RBC 0-5 SEEN Urine WBC 0-5 SEEN Ur Squamous Epith Cells 5-10 SEEN Urine Bacteria 1+ Urine Mucus 0 SEEN Treatment and Re-Evaluation :: Patient was told of her laboratory results. Patient was told that the cause of her pain is unknown. Suspect the bruising is due to blunt trauma when she tried to get into the room between the washer. She was told that her platelet count is normal. She was told that her liver function is normal and there is no concern for her blood being too thin. Patient given opportunity ask q uestions. She asked 1 question which was answered. She was asked if there is anything else that could be done and her response was noted. Discharge Plan Triage Chief Complaint: Abd Pain ED Provider: Shon Quintero Dx/Rx/DC Orders Clinical Impression: Abdominal pain of unknown etiology, Hepatitis C, chronic, Contusion of abdominal wall, initial encounter Instructions: ED Abdominal Pain Unkn Cause Fem, ED Soft Tissue Contusion, ED Hepatitis C Virus Prescriptions: No Action desvenlafaxine 100 mg tablet extended release 24hr 100 mg PO DAILY albuterol sulfate 1 PUFF inhaler 1 - 2 puff inhalation Q4H PRN PRN (Reason: Sob &/Or Wheezing) Vitamin D3 1,250 mcg OTHER QWEEK Rx Instructions: TAKES ON MODAY BY MOUTH pantoprazole 40 mg Tablet,Delayed Release (Dr/Ec) 40 mg PO BID Rx Instructions: BEFORE MEALS topiramate 100 mg tablet 100 mg PO BID Rx Instructions: BEFORE MEALS trazodone 100 mg tablet 100 mg PO QHS Qty: 1 0RF gabapentin 300 mg capsule 100 mg PO BID Qty: 1 0RF cyclobenzaprine 10 mg tablet 10 mg PO TID PRN (Reason: Pain) aripiprazole 30 mg tablet 30 mg PO DAILY Primary Care Provider: Ang Acosta Referrals: Ang Acosta MD [Primary Care Provider] - 3-5 Days if not improving Activity Restrictions/Additional Instructions: 1. Apply ice to bruised area 6-10 times a day for the next 3 days. 2. You may take either ibuprofen or Aleve for your pain. Disposition Disposition: Home, Self Care
[2023-04-25 15:34] LABS: Differential Comment SCANNED
[2023-04-25 15:59] LABS: Mucous, Urine 0 SEEN /hpf (<or=2+)
[2023-04-25 16:05] LABS: Glucose, Dipstick Normal (Normal); Ketone-Dipstick 5 mg/dl (Negative); Leukocyte Esterase-Dipstick 25 /ul (Negative); Nitrite-Dipstick Negative (Negative); Occult Blood-Urine 50 /ul (Negative); Protein-Dipstick 30 mg/dl (Negative); Urine Urobilinogen 4 mg/dl (Normal)
[2023-04-25 16:07] LABS: Color, Urine Yellow (Yellow); Urine Bilirubin Dipstick 1 mg/dL (Negative); Urine Clarity Clear (Clear)
[2023-04-25 16:09] LABS: International Normalized Ratio 1.4
[2023-04-25 16:12] LABS: Bacteria 1+ /hpf (None Seen); Red Blood Cells-Urine 0-5 SEEN /hpf (0-5); Squamous Epithelial Cells - UA 5-10 SEEN /hpf (5-10); White Blood Cells 0-5 SEEN /hpf (0-5)
[2023-04-25 16:53] VITALS: PULSE 74; RESP 18; O2SAT 98
== END 2023-04-25 17:09 | disposition home or self-care (01) ==
PROVIDERS: Emergency Provider Emergency Medicine; PCP Family Medicine; Visit Provider Emergency Medicine
DX: S30.1XXA Contusion of abdominal wall, initial encounter (principal); J44.9 Chronic obstructive pulmonary disease, unspecified; B18.2 Chronic viral hepatitis C; X58.XXXA Exposure to other specified factors, initial encounter; R31.9 Hematuria, unspecified; E66.9 Obesity, unspecified; F17.210 Nicotine dependence, cigarettes, uncomplicated
CPT/HCPCS: 84703; 80053; 81001; 85025; 85610; 99283; A4216

== ENCOUNTER 2023-07-20 16:12 | Observation (INO) | payer MEDICAID, SELFPAY ==
[2023-07-20 16:13] VITALS: BP 138/88; PULSE 70; RESP 18; TEMP 36.3; O2SAT 98; BMI 40.9
[2023-07-20 18:55] LABS: Absolute Lymphocyte Count 1.87 X10^3/uL (0.83-4.51); Absolute Neutrophil Count 3.5 X10^3/uL (2.0-7.7); Basophil# 0.05 X10^3/uL; Basophil% 0.8 % (0-1); Eosinophil# 0.26 X10^3/uL; Eosinophils% 4.2 % (0-5); Hematocrit 31.6 % (37-47); Hemoglobin 9.7 g/dL (12.0-15.0); Lymphocyte # 1.87 X10^3/ul (0.83-4.51); Mean Corp Hgb Conc 30.7 g/dL (32-36); Mean Corpuscular Hgb 23.2 pg (27.0-32.0); Mean Corpuscular Volume 75.4 fL (81-99); Monocyte# 0.57 X10^3/uL; Monocyte% 9.1 % (0-10); NRBC Flagged by Analyzer 0 % (0-5); Neutrophil # 3.48 X10^3/uL (2.7-7.7); Neutrophil % 55.7 % (47-70); POSITIVE COUNT YES; POSITIVE MORPHOLOGY YES; Platelet Count 59 K/mm3 (150-450); RBC Distribution Width CV 21.8 % (11.6-14.6); RBC Distribution Width SD 59.2 fl (35.1-43.9); Red Blood Count 4.19 M/mm3 (4.2-5.4); White Blood Count 6.2 K/mm3 (4.4-11.0)
[2023-07-20 18:57] LABS: Differential Indicated SCAN CRITERIA MET
[2023-07-20 19:03] LABS: AST(SGOT) 134 U/L (15-37); Alanine Aminotransfer ALT/SGPT 76 U/L (13-56); Albumin, Serum 2.8 g/dL (3.2-5.0); Alkaline Phosphatase 156 U/L (45-117); Anion Gap 4 (5-15); BUN 9 mg/dL (7-18); BUN/Creat Ratio 9.6 RATIO (10-20); Bilirubin, Direct 0.87 mg/dL (0.00-0.30); Calcium,Total 8.5 mg/dL (8.5-10.1); Chloride 112 mmol/L (98-107); Creatinine, Serum 0.94 mg/dL (0.55-1.02); EST Glomerular Filtration Rate 68 mL/min (>60); Est Glom Filt Rate - Afr Amer 82 mL/min (>60); Estimated Creatinine Clearance 57.26 ml/min; Globulin 3.6 g/dL (2.2-4.2); Glucose 86 mg/dL (74-106); Lipase 49 U/L (13-75); Potassium 3.7 mmol/L (3.5-5.1); Protein, Total 6.4 g/dL (6.4-8.2); Sodium Level 142 mmol/L (136-145)
[2023-07-20 19:12] LABS: International Normalized Ratio 1.7; Prothrombin Time (Protime)PT. 19.6 SECONDS (11.7-14.9)
--- NOTE | 2023-07-20 19:15 | CT_ITS ---
STUDY: CT ABDOMEN AND PELVIS WITH CONTRAST REASON FOR EXAM: Female, 47 years old. pain RADIATION DOSAGE (If Supplied By Facility): CTDIvol = ( 17.02 ) mGy, DLP = ( 1445.31 ) mGycm TECHNIQUE: Transaxial images were obtained from the dome of the diaphragm to the symphysis pubis without oral contrast. IV 100mL Isovue-300 was administered. Sagittal and coronal images were reconstructed. Individualized dose optimization techniques were used for this CT. COMPARISON: May 19, 2022 FINDINGS: There are 2 mm peripheral right lower lobe parenchymal nodules likely granulomas. The visualized portions of the heart are within normal limits. Cirrhosis of the liver. Moderately distended gallbladder with pericholecystic fluid. No significant dilatation of the biliary system. Enlarged spleen. Normal pancreas. Ascites. Normal bilateral adrenal glands. Up to 11 mm calculi in the right kidney. 2 mm lower pole stone in the left kidney. Normal visualized stomach. Normal small intestine. Wall thickening at the ascending colon. The appendix is visualized and appears normal. Normal abdominal aorta. Normal inferior vena cava. Normal retroperitoneum. Normal urinary bladder. Normal abdominal wall. Normal osseous structures. CT/Abdomen/Pelvis W IV Cont ONLY IMPRESSION: Cirrhosis and splenomegaly. Ascites. Bilateral nonobstructing renal calculi. Possible wall thickening of the ascending colon. Electronically Signed: Jamaal Reeves DO at 19:45 EDT ,
--- NOTE | 2023-07-20 19:15 | RAD_ITS ---
INDICATION: great toe injury EXAMINATION/TECHNIQUE: X-RAY - LEFT XR Foot 3 VIEWS COMPARISON: FINDINGS: SOFT TISSUES: No soft tissue swelling or gas. No radiopaque foreign body. BONES/JOINTS: No acute fracture or subluxation.. Normal alignment. Preservation of the joint space.. No sclerotic or destructive changes observed. RAD/Foot min 3 Views IMPRESSION: Negative. Electronically Signed: Jamaal Reeves DO at 19:52 EDT ,
[2023-07-20 19:29] LABS: Anisocytosis 1+; Hypochromasia RARE; Microcytosis 1+; Platelet Estimate MOD DEC (ADEQ); Platelet Morphology LARGE; Red Cell Morphology N CHROM NORMAL (NORM C&C)
[2023-07-20 19:30] LABS: Ovalocyte RARE
[2023-07-20 20:20] VITALS: BP 149/83; PULSE 59; RESP 16; TEMP 36.5; O2SAT 100
[2023-07-20] MEDS: Ceftriaxone 1 GM/50 ML BAG IV (20:40)
[2023-07-20] MEDS: Diphth,Pertuss(Acell),Tet Vac 0.5 ML Vial IM (20:45)
--- NOTE | 2023-07-20 20:56 | PCM.HP.STD ---
HPI - General General Date of Admission: 07/20/23 Date of Service: 07/20/23 Chief Complaint: Abdominal swelling HPI Narrative CAROLINA HIGHTOWER, is a 47 F with a significant history of hep C and cirrhosis with abdominal swelling that started about 2 days ago. Associated with HIS symptoms is abdominal pain and distention that started about 2 days ago. Associated with his symptoms is abdominal pain and irritation. She denies any fever. Actually she came in because of left big toe symptoms. She reports that about a week ago she fell in the gravel and the skin of her left big toe was peeled off. There was swelling of the left big toe and on the day of presentation the swelling of the left big toe popped open. She reports that she is unable to take care for left foot because her abdomen has severely enlarged. CT scan of the abdomen showed inflammation of ascending colon; and ascites. Emergency department doctor discussed with Dr. Porras, right of way maintenance supervisor who recommended the patient stays at hospital for paracentesis and be started on antibiotics. PFSH Medical History Acute insomnia Anemia Anxiety Anxiety and depression Chronic anemia COPD (chronic obstructive pulmonary disease) Depression Difficulty chewing Gastric reflux Hepatitis History of diverticulitis History of renal disease Low iron Marijuana use Migraine headache MRSA infection Obesity Polysubstance abuse Rash Seizures Shortness of breath on exertion Smoker Substance abuse Thrombocytopenia Tobacco use Home Medications desvenlafaxine 100 mg tablet,extended release 24 hour 100 mg PO DAILY NERVE PAIN 02/20/19 [History Last Taken Unknown] Vitamin D3 1,250 mcg OTHER QWEEK SUPPLEMENT 05/20/22 [History Last Taken Unknown] pantoprazole 40 mg tablet,delayed release 40 mg PO BID GERD 05/20/22 [History Last Taken Unknown] topiramate 100 mg tablet 100 mg PO BID PER GASTRO 05/20/22 [History Last Taken Unknown] trazodone 100 mg tablet 100 mg PO QHS SLEEP #1 TAB 05/21/22 [Rx Last Taken Unknown] aripiprazole 30 mg tablet 30 mg PO DAILY 09/14/22 [History Last Taken Unknown] gabapentin 100 mg capsule 100 mg PO Q12H 07/20/23 [History Last Taken Unknown] Allergy/AdvReac Type Severity Reaction Status Date / Time bupropion HCl Allergy SEIZURES Verified 04/25/23 13:53 [From Wellbutrin] codeine Allergy Rash Verified 04/25/23 13:53 Family History Mother Diabetes Father Cancer HX Throat CA. 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, marijuana, heroin and methamphetamine seatbelt use: always do you feel safe at home: Yes ROS ROS Narrative Pertinent positives and pertinent negatives as noted in HPI. All other systems were reviewed and are negative Vital Signs Vital Signs Vital Signs: 07/20/23 16:13 07/20/23 20:20 Temperature 97.4 F L 97.7 F L Temperature Source Temporal Oral Pulse Rate 70 59 L Respiratory Rate 18 16 Blood Pressure 138/88 H 149/83 H Blood Pressure Mean 104 105 Pulse Ox 98 100 Oxygen Delivery Method Room Air Room Air Weight Weight: 101.605 kg Body Mass Index (BMI) 40.9 Physical Exam Narrative Physical exam: General: Well-nourished, well-developed. Head: Normocephalic, atraumatic, no tenderness Eyes: Vision is grossly intact. EOMI ENT, no trauma, moist mucous membranes, no rhinorrhea Neck: Nontender, No thyromegaly. CVS: Regular rate and rhythm. S1-S2 present. No murmur, gallop or rub. Respiratory : clear to auscultation bilaterally, chest wall nontender Abdomen: Soft, nontender. obese abdomen. Bowel sounds hypoactive : Deferred Back: Nontender, no CVA tenderness, no midline spinal tenderness, deformities, step-offs Extremities: Nontender full range of motion, no trauma. Left big toe with swelling, ulcer; subungual hematoma. Right big toe with no swelling, no ulcer and no subungual hematoma Skin: Normal color, no trauma, abrasions Neuro: Alert, oriented, cranial nerves II through XII grossly intact. Psychiatry: Normal mood. Normal affect. Not depressed. Not anxious. Results Lab / Micro Data 07/21/23 05:11 07/21/23 05:11 Labs: Laboratory Results - last 24 hr 07/20/23 18:35: WBC 6.2, RBC 4.19 L, Hgb 9.7 L, Hct 31.6 L, MCV 75.4 L, MCH 23.2 L, MCHC 30.7 L, RDW Std Deviation 59.2 H, RDW Coeff of Katalina 21.8 H, Plt Count 59 L, MPV TNP, Immature Gran % (Auto) 0.200, Neut % (Auto) 55.7, Lymph % (Auto) 30.0, [place] % (Auto) 9.1, Eos % (Auto) 4.2, Baso % (Auto) 0.8, Absolute Neuts (auto) 3.5, Absolute Lymphs (auto) 1.87, Nucleated RBC % 0, Platelet Estimate MOD DEC, Plt Morphology Comment LARGE, RBC Morphology N CHROM, Hypochromasia RARE, Anisocytosis 1+, Microcytosis 1+, Ovalocytes RARE, PT 19.6 H, INR 1.7, Sodium 142, Potassium 3.7, Chloride 112 H, Carbon Dioxide 26.0, Anion Gap 4 L, BUN 9, Creatinine 0.94, Estim Creat Clear Calc 57.26, Est GFR (MDRD) Af Amer 82, Est GFR (MDRD) Non-Af 68, BUN/Creatinine Ratio 9.6 L, Glucose 86, Calcium 8.5, Total Bilirubin 1.70 H, Direct Bilirubin 0.87 H, AST 134 H, ALT 76 H, Alkaline Phosphatase 156 H, Total Protein 6.4, Albumin 2.8 L, Globulin 3.6, Lipase 49 Radiology Impression Abdomen/Pelvis CT 07/20/23 19:15 IMPRESSION: Cirrhosis and splenomegaly. Ascites. Bilateral nonobstructing renal calculi. Possible wall thickening of the ascending colon. Electronically Signed: Jamaal Reeves DO at 19:45 EDT Reading Location ID and State: [facility] / [place] Tel [phone], Service support , Foot X-Ray 07/20/23 19:15 IMPRESSION: Negative. Electronically Signed: Jamaal Reeves DO at 19:52 EDT Reading Location ID and State: [facility] / [place] Tel [phone], Service support , Assessment & Plan Assessment/Plan (1) Ascites: QUALIFIERS: Ascites type: due to alcoholic hepatitis Qualified Code(s): K70.11 - Alcoholic hepatitis with ascites (2) Cirrhosis of liver: QUALIFIERS: Hepatic cirrhosis type: unspecified hepatic cirrhosis Ascites presence: with ascites Qualified Code(s): K74.60 - Unspecified cirrhosis of liver; R18.8 - Other ascites (3) Subungual hematoma of great toe of left foot: QUALIFIERS: Encounter type: initial encounter Qualified Code(s): S90.212A - Contusion of left great toe with damage to nail, initial encounter (4) Skin ulcer of left great toe: QUALIFIERS: Non-pressure ulcer stage: limited to breakdown of skin Qualified Code(s): L97.521 - Non-pressure chronic ulcer of other part of left foot limited to breakdown of skin (5) Hyperbilirubinemia: PLAN: Plan Cirrhosis with ascites/colitis/possible SBP Emergency department doctor Discussed the case with gastroenterology who recommended admission and antibiotics. Ceftriaxone ordered at the emergency department and continued. Hospitalist discussed case with emergency department doctor and patient's will be admitted for paracentesis and antibiotics. PT/INR obtained emergency department, reviewed. PT/INR is 19.6/1.7 GI consult. Worsening hyperbilirubinemia Trend CMP. Subungual hematoma of great toe of left foot Antibiotics as above prophylaxis to prevent infection. Received tetanus at the emergency department DVT prophylaxis: SCDs Time spent in the patient's overall evaluation,decision-making process, review of diagnostic data, adjustment of management, discussion with other providers, nursing and ancillary staff involved in patient's care documentation, 45 minutes. Time spent in the patient's overall evaluation,decision-making process, review of diagnostic data, adjustment of management, discussion with other providers, nursing and ancillary staff involved in patient's care documentation, 45 minutes. Charges/Coding Visit Charges Inpatient E&M: 59081 Init Hosp L2
--- NOTE | 2023-07-20 21:38 | EDS_ITS ---
HPI History of Present Illness Chief Complaint: Laceration Narrative Narrative: 47-year-old female presenting with left toe pain. She states that about a week ago she tripped and hurt her foot and it was bleeding but resolved. She notes that she hit it on something tonight and it was painful and bleeding. She had a dressed and come to the emergency room under the amount of bleeding. Bleeding is resolved here. Still some pain in the toe. She is not sure if she broke the toe. She states she has been unable to do toe care because her stomach has become so large that she cannot reach her feet. She states she has a history of cirrhosis and hep C. She sees Dr. Porras on an outpatient basis but apparently missed her last visit and does not have another visit to October. She does state that her abdomen is much more distended than usual. She has not had any fevers or chills. No nausea or vomiting. She does complain of abdominal pain which is fairly diffuse. PFSH PFSH Medical History Acute insomnia Anemia Anxiety Anxiety and depression Chronic anemia COPD (chronic obstructive pulmonary disease) Depression Difficulty chewing Gastric reflux Hepatitis History of diverticulitis History of renal disease Low iron Marijuana use Migraine headache MRSA infection Obesity Polysubstance abuse Rash Seizures Shortness of breath on exertion Smoker Substance abuse Thrombocytopenia Tobacco use Home Medications desvenlafaxine 100 mg tablet,extended release 24 hour 100 mg PO DAILY NERVE PAIN 02/20/19 [History Last Taken Unknown] Vitamin D3 1,250 mcg OTHER QWEEK SUPPLEMENT 05/20/22 [History Last Taken Unknown] pantoprazole 40 mg tablet,delayed release 40 mg PO BID GERD 05/20/22 [History Last Taken Unknown] topiramate 100 mg tablet 100 mg PO BID PER GASTRO 05/20/22 [History Last Taken Unknown] trazodone 100 mg tablet 100 mg PO QHS SLEEP #1 TAB 05/21/22 [Rx Last Taken Unknown] aripiprazole 30 mg tablet 30 mg PO DAILY 09/14/22 [History Last Taken Unknown] gabapentin 100 mg capsule 100 mg PO Q12H 07/20/23 [History Last Taken Unknown] Allergy/AdvReac Type Severity Reaction Status Date / Time bupropion HCl Allergy SEIZURES Verified 04/25/23 13:53 [From Wellbutrin] codeine Allergy Rash Verified 04/25/23 13:53 Family History Mother Diabetes Father Cancer HX Throat CA. 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, marijuana, heroin and methamphetamine seatbelt use: always do you feel safe at home: Yes ROS ROS ED Constitutional Constitutional ED: Denies chills, fever(s) or sweats Eyes Eyes: Denies blurry vision or change in vision ENT ENT ED: Denies ear pain or sore throat Cardiovascular Cardiovascular: Denies chest pain, palpitations or racing heartbeat Respiratory/Chest Respiratory/Chest: Denies cough, dyspnea or sputum Gastrointestinal Gastrointestinal: Reports abdominal pain; Denies constipation, diarrhea, nausea or vomiting Genitourinary Genitourinary ED: Denies dysuria, hematuria or urinary frequency Musculoskeletal Musculoskeletal: Reports other Details: Left great toe pain ; Denies arthralgias, myalgias or neck pain Integumentary Reports Abrasions and other; Denies abscess or rash Neurologic Neurologic: Denies headache(s), paresthesias or weakness Psychiatric Psychiatric: Denies anxiety, depression, suicidal ideation or suicidal thoughts Endocrine Endocrinology: Denies polydipsia or polyuria EXAM Physical Exam Const Vital Signs: 07/20/23 16:13 07/20/23 20:20 Temperature 97.4 F L 97.7 F L Temperature Source Temporal Oral Pulse Rate 70 59 L Respiratory Rate 18 16 Blood Pressure 138/88 H 149/83 H Blood Pressure Mean 104 105 Pulse Ox 98 100 Oxygen Delivery Method Room Air Room Air Positive well nourished and obese Nutritional Appearance: obese HEENT Reports moist mucous membranes normocephalic and atraumatic Chest Wall inspection of chest normal Resp normal respiratory effort and no retractions Cardio regular rate and regular rhythm GI GI Narrative: Abdomen is distended, positive fluid wave. Palpation: tender Neuro oriented x3 and CN's II-XII intact bilaterally Sensorium / Orientation: alert Motor Exam: strength 5/5 throughout Psych mental status grossly normal Skin Skin Narrative: Abrasion on the medial aspect of the left great toe. No active bleeding. The toenail does look little darkened. It is tender to palpation. No tenderness on the joint lines. MDM MDM MDM Narrative Medical decision making narrative: Presenting initially for left toe pain which she injured a week ago. The bleeding seems to resolve. Updated her tetanus today and placed her in a dressing. X-rays of the left telemetry my interpretation show no acute fracture. She also complains of abdominal discomfort and tension with a history of cirrhosis. For this reason I did obtain blood work. Differential includes c irrhosis, ascites, SBP, constipation, obstruction, colitis, diverticulitis, pyelonephritis, pancreatitis. CBC was obtained to assess white blood cell count, hemoglobin, platelets. BMP to assess renal function and electrolytes. LFTs to assess liver function. Lipase to assess for pancreatitis. PT/INR were obtained due to history of cirrhosis and likely need for paracentesis. CBC unremarkable. LFTs slightly more elevated than previous. INR 1.7. CT of the abdomen pelvis with IV contrast shows ascites and possible inflammation of the ascending colon. Discussed the case with Dr. Porras who recommended Rocephin and admission. He will do paracentesis tomorrow. Patient admitted to the hospitalist in stable condition. Impression: 1. Ascites 2. Cirrhosis 3. Left great toe abrasion Lab Data Attestation: I reviewed the patient's lab results. Labs: Laboratory Results - last 24 hr 07/20/23 18:35 WBC 6.2 RBC 4.19 L Hgb 9.7 L Hct 31.6 L MCV 75.4 L MCH 23.2 L MCHC 30.7 L RDW Std Deviation 59.2 H RDW Coeff of Katalina 21.8 H Plt Count 59 L MPV TNP Immature Gran % (Auto) 0.200 Neut % (Auto) 55.7 Lymph % (Auto) 30.0 [place] % (Auto) 9.1 Eos % (Auto) 4.2 Baso % (Auto) 0.8 Absolute Neuts (auto) 3.5 Absolute Lymphs (auto) 1.87 Nucleated RBC % 0 Platelet Estimate MOD DEC Plt Morphology Comment LARGE RBC Morphology N CHROM Hypochromasia RARE Anisocytosis 1+ Microcytosis 1+ Ovalocytes RARE PT 19.6 H INR 1.7 Sodium 142 Potassium 3.7 Chloride 112 H Carbon Dioxide 26.0 Anion Gap 4 L BUN 9 Creatinine 0.94 Estim Creat Clear Calc 57.26 Est GFR (MDRD) Af Amer 82 Est GFR (MDRD) Non-Af 68 BUN/Creatinine Ratio 9.6 L Glucose 86 Calcium 8.5 Total Bilirubin 1.70 H Direct Bilirubin 0.87 H AST 134 H ALT 76 H Alkaline Phosphatase 156 H Total Protein 6.4 Albumin 2.8 L Globulin 3.6 Lipase 49 Radiography Diagnostic Testing: Clinical Impression(s) from Imaging Studies Abdomen/Pelvis CT 07/20/23 19:15 IMPRESSION: Cirrhosis and splenomegaly. Ascites. Bilateral nonobstructing renal calculi. Possible wall thickening of the ascending colon. Electronically Signed: Jamaal Reeves DO at 19:45 EDT , Foot X-Ray 07/20/23 19:15 IMPRESSION: Negative. Electronically Signed: Jamaal Reeves DO at 19:52 EDT , Discharge Plan Triage Chief Complaint: Laceration ED Provider: Darius Rosales Dx/Rx/DC Orders Prescriptions: No Action desvenlafaxine 100 mg tablet extended release 24hr 100 mg PO DAILY Vitamin D3 1,250 mcg OTHER QWEEK Rx Instructions: TAKES ON MODAY BY MOUTH pantoprazole 40 mg Tablet,Delayed Release (Dr/Ec) 40 mg PO BID Rx Instructions: BEFORE MEALS topiramate 100 mg tablet 100 mg PO BID Rx Instructions: BEFORE MEALS trazodone 100 mg tablet 100 mg PO QHS Qty: 1 0RF aripiprazole 30 mg tablet 30 mg PO DAILY gabapentin 100 mg capsule 100 mg PO Q12H Patient Comments: Take 1 capsule by mouth twice daily Primary Care Provider: Ang Acosta Referrals: Ang Acosta MD [Primary Care Provider] -
[2023-07-20 22:35] VITALS: BP 132/80; PULSE 58; RESP 16; O2SAT 100
--- NOTE | 2023-07-21 | FLU_PTH ---
PATIENT: CAROLINA HIGHTOWER LOC: MS2 U#:[id number] AGE/SX: 47/F ROOM: [facility] [place] RE07/20/[address]: Dr. Michi Forbes DO : 1975 BED: 1 DIS: 07/21/2023 SPEC #: [id number] RECD: 07/21/23 09:04 STATUS: TRAMAINE REDawna #: [id number] KYLAH: 07/21/23 00:[address]: Michi Forbes DEPT: CYTOLOGY RECD BY: Sury Hutton ENTERED: 07/21/23 10:16 SP TYPE: Fluid OTHR DR: MD Dr. Ang Lamar MD Dr. Rahsaan Friend, DO Tissues: PARACENTESIS FLUID Procedures: Special Stain Group II Surgery Specimen Level IV Cytospin Fluid HEADER OPERATION: Paracentesis PRE-OP DIAGNOSIS: Ascites TISSUE SUBMITTED: Paracentesis fluid for cytology DIAGNOSIS CYTOLOGY Paracentesis fluid for cytology (cytospin): Negative for malignant cells. See comment. SJ:samy 07/22/2023 COMMENT Clinical correlation and appropriate follow up are necessary. CYTOLOGY STUDY Slides are reviewed. CYTOLOGY GROSS Received is 100 ml of light yellow fluid labeled with the patient's name and and designated per the requisition as paracentesis. Submitted for cytology preparation including cell block. / samy 07/21/2023 TC:5 CPT: 29745, 58589
--- NOTE | 2023-07-21 02:49 | US_ITS ---
PROCEDURE: Ultrasound guided paracentesis. DATE OF EXAMINATION: July 21, 2023. INDICATION: Female, 47 years old. Ascites. PHYSICIAN: Isidro Burnett M.D. TECHNIQUE: The risks, benefits, and alternatives to the procedure were explained to the patient. The specific risks of bleeding, infection, and damage to bowel were detailed and accepted. Witnessed informed consent was obtained. The abdomen was ultrasonographically surveyed. An appropriate pocket of fluid was identified at the right lower quadrant. The skin were cleaned and prepped in the usual sterile fashion. Using ultrasound guidance, the peritoneal cavity was accessed with a 5-Haitian paracentesis needle/catheter system. The trocar was removed. A total of 3550 ml of jose manuel-colored fluid were removed from the peritoneal cavity. The catheter was removed and a sterile dressing was applied. The procedure was well tolerated. US/Paracentesis with US IMPRESSION: Ultrasound guided paracentesis. Electronically Signed: Isidro Burnett MD at 9:00 EDT ,
[2023-07-21 03:03] VITALS: BMI 40.1
[2023-07-21 03:04] VITALS: BP 108/59; PULSE 67; RESP 16; TEMP 36.6; O2SAT 98
[2023-07-21] MEDS: traZODone 100 MG Tablet PO (03:35)
[2023-07-21] MEDS: Topiramate 100 MG Tablet PO ×2 (03:35→09:04)
[2023-07-21] MEDS: Pantoprazole Sodium 40 MG Tablet PO ×2 (03:35→09:04)
[2023-07-21 06:00] VITALS: BMI 40.4
[2023-07-21 06:46] LABS: Absolute Lymphocyte Count 1.71 X10^3/uL (0.83-4.51); Absolute Neutrophil Count 2.8 X10^3/uL (2.0-7.7); Basophil# 0.05 X10^3/uL; Basophil% 0.9 % (0-1); Eosinophil# 0.23 X10^3/uL; Eosinophils% 4.3 % (0-5); Hemoglobin 8.7 g/dL (12.0-15.0); Lymphocyte # 1.71 X10^3/ul (0.83-4.51); Lymphocyte % 31.8 % (19-41); Mean Corpuscular Hgb 22.4 pg (27.0-32.0); Mean Corpuscular Volume 77.3 fL (81-99); Monocyte# 0.57 X10^3/uL; Monocyte% 10.6 % (0-10); NRBC Flagged by Analyzer 0 % (0-5); Neutrophil # 2.81 X10^3/uL (2.7-7.7); Neutrophil % 52.2 % (47-70); POSITIVE COUNT YES; POSITIVE MORPHOLOGY YES; Platelet Count 55 K/mm3 (150-450); RBC Distribution Width CV 21.8 % (11.6-14.6); RBC Distribution Width SD 60.9 fl (35.1-43.9); Red Blood Count 3.88 M/mm3 (4.2-5.4); White Blood Count 5.4 K/mm3 (4.4-11.0)
[2023-07-21 06:58] LABS: Differential Indicated SCAN CRITERIA MET
[2023-07-21] MEDS: Ibuprofen 400 MG Tablet PO (07:07)
[2023-07-21 07:09] LABS: ALB/GLOB Ratio 0.7 RATIO (0.9-2.4); AST(SGOT) 116 U/L (15-37); Alanine Aminotransfer ALT/SGPT 69 U/L (13-56); Albumin, Serum 2.4 g/dL (3.2-5.0); Alkaline Phosphatase 141 U/L (45-117); Anion Gap 5 (5-15); BUN 8 mg/dL (7-18); BUN/Creat Ratio 8.3 RATIO (10-20); Calcium,Total 8.3 mg/dL (8.5-10.1); Chloride 112 mmol/L (98-107); Creatinine, Serum 0.96 mg/dL (0.55-1.02); EST Glomerular Filtration Rate 66 mL/min (>60); Est Glom Filt Rate - Afr Amer 79 mL/min (>60); Estimated Creatinine Clearance 56.07 ml/min; Globulin 3.4 g/dL (2.2-4.2); Glucose 155 mg/dL (74-106); Potassium 3.3 mmol/L (3.5-5.1); Protein, Total 5.8 g/dL (6.4-8.2); Sodium Level 140 mmol/L (136-145)
--- NOTE | 2023-07-21 07:33 | PCM.PN.HOSP ---
Subjective Subjective Feeling well. Has had chronic ascites due to cirrhosis from hepatitis C. Has stopped taking the diuretics previously due to the facility that she was living in 20 people there that was cumbersome to use the bathroom. Now it is more convenient using the restroom. Objective Data Objective Data Vital Signs: Vital Signs Temp Pulse Resp BP Pulse Ox O2 Del Method 36.6 C 67 16 108/59 L 98 Room Air 07/21/23 03:04 07/21/23 03:04 07/21/23 03:04 07/21/23 03:04 07/21/23 03:04 07/21/23 03:04 Oxygen Delivery Method Room Air Weight: 99.798 kg Body Mass Index (BMI) 40.4 Intake & Output: Intake and Output for Last 24 Hours 07/19/23 07/20/23 07/21/23 23:59 23:59 23:59 Intake Total 50 / 50 Balance 50 / 50 Lab / Micro Data 07/21/23 05:11 07/21/23 05:11 Labs: Laboratory Results - last 24 hr 07/20/23 18:35: WBC 6.2, RBC 4.19 L, Hgb 9.7 L, Hct 31.6 L, MCV 75.4 L, MCH 23.2 L, MCHC 30.7 L, RDW Std Deviation 59.2 H, RDW Coeff of Katalina 21.8 H, Plt Count 59 L, MPV TNP, Immature Gran % (Auto) 0.200, Neut % (Auto) 55.7, Lymph % (Auto) 30.0, Emm[place] % (Auto) 9.1, Eos % (Auto) 4.2, Baso % (Auto) 0.8, Absolute Neuts (auto) 3.5, Absolute Lymphs (auto) 1.87, Nucleated RBC % 0, Platelet Estimate MOD DEC, Plt Morphology Comment LARGE, RBC Morphology N CHROM, Hypochromasia RARE, Anisocytosis 1+, Microcytosis 1+, Ovalocytes RARE, PT 19.6 H, INR 1.7, Sodium 142, Potassium 3.7, Chloride 112 H, Carbon Dioxide 26.0, Anion Gap 4 L, BUN 9, Creatinine 0.94, Estim Creat Clear Calc 57.26, Est GFR (MDRD) Af Amer 82, Est GFR (MDRD) Non-Af 68, BUN/Creatinine Ratio 9.6 L, Glucose 86, Calcium 8.5, Total Bilirubin 1.70 H, Direct Bilirubin 0.87 H, AST 134 H, ALT 76 H, Alkaline Phosphatase 156 H, Total Protein 6.4, Albumin 2.8 L, Globulin 3.6, Lipase 49 07/21/23 05:11: WBC 5.4, RBC 3.88 L, Hgb 8.7 L, Hct 30.0 L, MCV 77.3 L, MCH 22.4 L, MCHC 29.0 L D, RDW Std Deviation 60.9 H, RDW Coeff of Katalina 21.8 H, Plt Count 55 L, Immature Gran % (Auto) 0.200, Neut % (Auto) 52.2, Lymph % (Auto) 31.8, Emmons % (Auto) 10.6 H, Eos % (Auto) 4.3, Baso % (Auto) 0.9, Absolute Neuts (auto) 2.8, Absolute Lymphs (auto) 1.71, Nucleated RBC % 0, Sodium 140, Potassium 3.3 L, Chloride 112 H, Carbon Dioxide 23.0, Anion Gap 5, BUN 8, Creatinine 0.96, Estim Creat Clear Calc 56.07, Est GFR (MDRD) Af Amer 79, Est GFR (MDRD) Non-Af 66, BUN/Creatinine Ratio 8.3 L, Glucose 155 H, Calcium 8.3 L, Total Bilirubin 1.20 H, AST 116 H, ALT 69 H, Alkaline Phosphatase 141 H, Total Protein 5.8 L, Albumin 2.4 L, Globulin 3.4, Albumin/Globulin Ratio 0.7 L Radiography Diagnostic Testing: Radiology Impression Abdomen/Pelvis CT 07/20/23 19:15 IMPRESSION: Cirrhosis and splenomegaly. Ascites. Bilateral nonobstructing renal calculi. Possible wall thickening of the ascending colon. Electronically Signed: Jamaal Reeves DO at 19:45 EDT , Foot X-Ray 07/20/23 19:15 IMPRESSION: Negative. Electronically Signed: Jamaal Reeves DO at 19:52 EDT , Physical Exam Const alert and no apparent distress HEENT head/scalp atraumatic and moist oral mucous membranes Resp normal respiratory effort, no retractions, no use of accessory muscles and clear to auscultation bilaterally Cardio regular rate, regular rhythm, S1 normal heart sound and S2 normal heart sound GI normal to inspection, nondistended, normoactive bowel sounds, soft to palpation and non-tender GI Narrative: distended. Extremity Extremity Narrative: thickened toe nails bilaterally. discolored nails bilaterally. unable to appreciate any subungual hematoma. Neuro Sensorium / Orientation: awake and alert Assessment & Plan Assessment/Plan (1) Ascites: QUALIFIERS: Ascites type: other type Qualified Code(s): R18.8 - Other ascites PLAN: paracentesis ordered and removed 3550cc of fluid. WBCs only 147. Clinically not SBP, DC abx. Patient now agreeable to resuming diuretics to help mitigate ascites. (2) Subungual hematoma of great toe of left foot: QUALIFIERS: Encounter type: initial encounter Qualified Code(s): S90.212A - Contusion of left great toe with damage to nail, initial encounter PLAN: Xray negative. Routine wound care (3) Cirrhosis of liver: QUALIFIERS: Hepatic cirrhosis type: other cirrhosis Qualified Code(s): K74.69 - Other cirrhosis of liver PLAN: h/o Hep C follow up with GI. MELD 13, Child-[place]ma C (4) Hyperbilirubinemia: PLAN: 2/2 cirrhosis monitor PLAN: Plan Chronic conditions: depression: desveenlafaxine GERD PPI DVT prophylaxis: SCDs
[2023-07-21 07:57] VITALS: BP 107/44; PULSE 65; RESP 18; TEMP 36.5; O2SAT 100
--- NOTE | 2023-07-21 07:59 | NURSING ---
off unit for paracentesis at this time.
[2023-07-21 08:11] VITALS: BP 103/62; BP 111/73; BP 119/62; PULSE 64; PULSE 65; PULSE 69; RESP 18; O2SAT 100; O2SAT 99
[2023-07-21] MEDS: Lidocaine 2% (20 ml mdv) 20 ML Vial INFILT (08:15)
[2023-07-21 08:58] LABS: Anisocytosis 2+; Differential Comment SCANNED; Hypochromasia 1+; Macrocytosis 1+; Microcytosis 1+; Platelet Estimate MKD DEC (ADEQ)
[2023-07-21] MEDS: Venlafaxine XR 75 MG Capsule PO (09:04)
[2023-07-21] MEDS: Gabapentin 100 MG Capsule PO (09:04)
[2023-07-21] MEDS: ARIPiprazole 10 MG Tablet 30 MG PO (09:04)
--- NOTE | 2023-07-21 09:15 | PCM.OP.PRO ---
Procedure Report Date of Procedure: 07/21/23 Assessment & Plan Assessment/Plan (1) Ascites: QUALIFIERS: Ascites type: due to alcoholic hepatitis Qualified Code(s): K70.11 - Alcoholic hepatitis with ascites PLAN: PROCEDURE: Ultrasound guided paracentesis ORDERING PROVIDER: Dr. Gurinder Mittal INDICATION: Female, 47 years old. Ascites. PROVIDER: JOSHUA Mc TECHNIQUE: The risks, benefits, and alternatives to the procedure were explained to the patient. The specific risks of bleeding, infection, and damage to bowel were detailed and accepted. Witnessed informed consent was obtained. The abdomen was ultrasonographically surveyed. An appropriate pocket of fluid was identified in the right lower quadrant. The skin was prepped with Betadine swabs and sterile field established. Using ultrasound guidance, the peritoneal cavity was accessed with a 5-[place] paracentesis needle/catheter system. The trocar was removed. A total of 3550 ml of clear yellow colored fluid was removed from the peritoneal cavity. 100 mL of that fluid was sent to lab for analysis, per ordering physician. The catheter was removed and a sterile dressing was applied. The procedure was well tolerated. IMPRESSION: Successful ultrasound-guided paracentesis. Procedures Radiology Radiology US Procedures: 44097 Paracentesis
[2023-07-21 09:32] LABS: Body Fluid Mononuclear WBC # 0.137 10^3/uL; Body Fluid Mononuclear WBC % 93.2 %; Body Fluid Polynuclear WBC % 6.8 %; White Blood Count/Body Fluid 0.147 10^3/uL
[2023-07-21 10:45] LABS: Lymphocytes 48 %; Macrophages 11 %; Mesothelial Cells 16 %; Monocytes 19 %; Neutrophil (Segs) 6 %
[2023-07-21 10:46] LABS: Auto B Fluid Analyzer BKGD Ct COUNTS W/IN LIMITS (W/IN LIMITS)
[2023-07-21 10:48] LABS: Source- Body Fluid ASCITES FLUID
[2023-07-21 10:49] LABS: Appearance/Body Fluid CLEAR; Body Fluid QC Type(s) BF1Q; Color/Body Fluid YELLOW; Red Cell Count/Body Fluid 100 /mm3
--- NOTE | 2023-07-21 13:04 | DS.PCM_ITS ---
Providers Date of Admission: 07/20/23 Primary Care Physician: Dr. Ang Acosta MD Consultations 07/21/23 02:49 Consult: Gastroenterology Routine Consulting Provider: VernJosé Reason for Consult: Ascites; colitis EMERGENT Consult: No MD Notified: Yes Date Notified: 07/20/23 Time Notified: 21:59 Method of Notification: ED Physician Initiated Reason For Visit: ASCITES WITH PORSSIBLE SBP Diagnosis Discharge Diagnosis (1) Ascites: Status: Acute Code(s): R18.8 - Other ascites Qualifiers: Ascites type: due to alcoholic hepatitis Qualified Code(s): K70.11 - Alcoholic hepatitis with ascites Plan: paracentesis ordered and removed 3550cc of fluid. WBCs only 147. Clinically not SBP, DC abx. Patient now agreeable to resuming diuretics to help mitigate ascites. BP is on the lower end, so will use spironolactone 50 and furosemide 20. Titrate upwards as BP and kidney function allow. Wall thickening noted on the CAT scan was nonspecific and clinically not presenting as colitis so therefore discontinuing antibiotics. (2) Subungual hematoma of great toe of left foot: Status: Acute Code(s): S90.212A - Contusion of left great toe with damage to nail, initial encounter Qualifiers: Encounter type: initial encounter Qualified Code(s): S90.212A - Contusion of left great toe with damage to nail, initial encounter Plan: Xray negative. Routine wound care (3) Cirrhosis of liver: Status: Chronic Code(s): K74.60 - Unspecified cirrhosis of liver Qualifiers: Hepatic cirrhosis type: unspecified hepatic cirrhosis Ascites presence: with ascites Qualified Code(s): K74.60 - Unspecified cirrhosis of liver; R18.8 - Other ascites Plan: h/o Hep C follow up with GI. MELD 13, Child-Palma C (4) Hyperbilirubinemia: Status: Acute Code(s): E80.6 - Other disorders of bilirubin metabolism Plan: 2/2 cirrhosis monitor Plan Chronic conditions: * depression: desveenlafaxine * GERD PPI DVT prophylaxis: SCDs Medications at Discharge Home Medications desvenlafaxine 100 mg tablet,extended release 24 hour 100 mg PO DAILY NERVE PAIN 02/20/19 Vitamin D3 1,250 mcg OTHER QWEEK SUPPLEMENT 08/25/22 pantoprazole 40 mg tablet,delayed release 40 mg PO BID GERD 05/20/22 topiramate 100 mg tablet 100 mg PO BID PER GASTRO 05/20/22 trazodone 100 mg tablet 100 mg PO QHS SLEEP #1 TAB 05/21/22 aripiprazole 30 mg tablet 30 mg PO DAILY 09/14/22 gabapentin 100 mg capsule 100 mg PO Q12H 07/20/23 furosemide 20 mg tablet 20 mg PO DAILY #30 tabs 07/21/23 spironolactone 50 mg tablet 50 mg PO DAILY #30 tabs 07/21/23 Hospital Course Operations None Procedures Paracentesis Summary of Care Provided Minutes Spent on Discharge: 32 Hospital Course: Patient presented because of bleeding from her toe. Patient had her toe and is bleeding excessively. Patient was unable to care for because her abdomen abdominal girth has gotten bigger. She presented emergency room and that was addressed this x-ray was negative. Bleeding did stop. Patient underwent a CAT scan that showed cirrhosis and splenomegaly as well as ascites. There is noted possible wall thickening on the Sait ascending colon. Patient was denying any abdominal pain. Patient did undergo a paracentesis today that removed 3550 cc of fluid. The white blood cells were 185,000 and not meeting the criteria for spontaneous bacterial peritonitis. The possible wall thickening in ascending colon is rather nonspecific and clinically patient does not have any evidence of any spontaneous bacterial peritonitis nor colitis. I will discontinue antibiotics. Patient had been on diuretics previously but stopped that due to living in a house with multiple individuals so getting to the restroom in time was difficult so she stopped taking the diuretics. Currently she is in environment now where she can easily get to the restroom without having to wait. She is open to resuming diuretics. Blood pressure systolic is around 110. Will initiate treatment with spironolactone 50 and furosemide 20 mg daily. This can be titrated upwards as blood pressure and kidney function allow. Patient has known cirrhosis due to hepatitis C and has previously had a biopsy to confirm that. That biopsy is not within our computer system. Weight / BMI Weight Weight: 99.798 kg Body Mass Index (BMI) 40.4 ABG / Lab / Microbiology Data 07/21/23 05:11 07/21/23 05:11 Laboratory: Laboratory Results - last 24 hr 07/20/23 18:35: WBC 6.2, RBC 4.19 L, Hgb 9.7 L, Hct 31.6 L, MCV 75.4 L, MCH 23.2 L, MCHC 30.7 L, RDW Std Deviation 59.2 H, RDW Coeff of Katalina 21.8 H, Plt Count 59 L, MPV TNP, Immature Gran % (Auto) 0.200, Neut % (Auto) 55.7, Lymph % (Auto) 3 0.0, [place] % (Auto) 9.1, Eos % (Auto) 4.2, Baso % (Auto) 0.8, Absolute Neuts (auto) 3.5, Absolute Lymphs (auto) 1.87, Nucleated RBC % 0, Platelet Estimate MOD DEC, Plt Morphology Comment LARGE, RBC Morphology N CHROM, Hypochromasia RARE, Anisocytosis 1+, Microcytosis 1+, Ovalocytes RARE, PT 19.6 H, INR 1.7, Sodium 142, Potassium 3.7, Chloride 112 H, Carbon Dioxide 26.0, Anion Gap 4 L, BUN 9, Creatinine 0.94, Estim Creat Clear Calc 57.26, Est GFR (MDRD) Af Amer 82, Est GFR (MDRD) Non-Af 68, BUN/Creatinine Ratio 9.6 L, Glucose 86, Calcium 8.5, Total Bilirubin 1.70 H, Direct Bilirubin 0.87 H, AST 134 H, ALT 76 H, Alkaline Phosphatase 156 H, Total Protein 6.4, Albumin 2.8 L, Globulin 3.6, Lipase 49 07/21/23 05:11: WBC 5.4, RBC 3.88 L, Hgb 8.7 L, Hct 30.0 L, MCV 77.3 L, MCH 22.4 L, MCHC 29.0 L D, RDW Std Deviation 60.9 H, RDW Coeff of Katalina 21.8 H, Plt Count 55 L, Immature Gran % (Auto) 0.200, Neut % (Auto) 52.2, Lymph % (Auto) 31.8, [place] % (Auto) 10.6 H, Eos % (Auto) 4.3, Baso % (Auto) 0.9, Absolute Neuts (auto) 2.8, Absolute Lymphs (auto) 1.71, Nucleated RBC % 0, Differential Comment SCANNED, Platelet Estimate MKD DEC, Hypochromasia 1+, Anisocytosis 2+, Microcytosis 1+, Macrocytosis 1+, Sodium 140, Potassium 3.3 L, Chloride 112 H, Carbon Dioxide 23.0, Anion Gap 5, BUN 8, Creatinine 0.96, Estim Creat Clear Calc 56.07, Est GFR (MDRD) Af Amer 79, Est GFR (MDRD) Non-Af 66, BUN/Creatinine Ratio 8.3 L, Glucose 155 H, Calcium 8.3 L, Total Bilirubin 1.20 H, AST 116 H, ALT 69 H , Alkaline Phosphatase 141 H, Total Protein 5.8 L, Albumin 2.4 L, Globulin 3.4, Albumin/Globulin Ratio 0.7 L 07/21/23 : Fluid Source ASCITES FLUID, Fluid Color YELLOW, Fluid Appearance CLEAR, Fluid WBC 0.147, Fluid RBC 100, Fluid Tot Cell Count 0.210 H, Fld Polynuclear WBCs # 0.010, Fld Polynuclear WBCs % 6.8, Fluid Mononuclear WBCs 0.137, Fld Mononuclear WBCs % 93.2, Fluid Neutrophils 6, Fluid Lymphocytes 48, Fluid Monocytes 19, Fluid Macrophages 11, Fld Mesothelial Cells 16, Fl Pathologist Comment May follow, Fluid Comment 2 SEE COMMENT Radiography Diagnostic Testing: Radiology Impression Abdomen/Pelvis CT 07/20/23 19:15 IMPRESSION: Cirrhosis and splenomegaly. Ascites. Bilateral nonobstructing renal calculi. Possible wall thickening of the ascending colon. Electronically Signed: Jamaal Reeves DO at 19:45 EDT , Foot X-Ray 07/20/23 19:15 IMPRESSION: Negative. Electronically Signed: Jamaal Reeves DO at 19:52 EDT , Paracentesis Ultrasound 07/21/23 02:49 IMPRESSION: Ultrasound guided paracentesis. Electronically Signed: Isidro Burnett MD at 9:00 EDT , D/C Instructions Discharge Diet: 8 Cup Fluid Restriction and 2000 mg Sodium Diet Call your doctor if you observe: - (increased abdominal pain and or swelling. ) Meaningful Use Info Meaningful Use Diagnoses (Choose all that apply): None applicable Discharge Plan Admission Admit Date/Time: 07/20/23 21:47 Primary Reason for Your Visit: ascites. Attending Provider: Michi Forbes Primary Care Provider: Ang Acosta Consulting Providers: José Porras; Gurinder Mittal Instructions Patient Instructions: JIM RN Paracentesis Dc Additional Instructions / Restrictions: You had a paracentesis, drainage of fluid from her abdomen, today and does not appear to be infected. This is due to your known cirrhosis and it is best for you to go back on your diuretics. You will be on spironolactone and furosemide daily. Please continue to take this. Please follow-up with your primary care doctor for follow-up lab work as well as follow-up with Dr. Porras for routine monitoring of your cirrhosis. If your abdominal pain is worse more increase abdominal swelling, notify someone or return to the emergency room. The also presented with bleeding from your toe that is stopped. If he noticed any change to your toes such as bleeding again or increased redness so forth, contact your physician or return to the emergency room. Discharge Orders/Prescriptions Prescriptions: New spironolactone 50 mg tablet 50 mg PO DAILY Qty: 30 0RF furosemide 20 mg tablet 20 mg PO DAILY Qty: 30 0RF Continued desvenlafaxine 100 mg tablet extended release 24hr 100 mg PO DAILY Vitamin D3 1,250 mcg OTHER QWEEK Rx Instructions: TAKES ON MODAY BY MOUTH pantoprazole 40 mg Tablet,Delayed Release (Dr/Ec) 40 mg PO BID Rx Instructions: BEFORE MEALS topiramate 100 mg tablet 100 mg PO BID Rx Instructions: BEFORE MEALS trazodone 100 mg tablet 100 mg PO QHS Qty: 1 0RF aripiprazole 30 mg tablet 30 mg PO DAILY gabapentin 100 mg capsule 100 mg PO Q12H Patient Comments: Take 1 capsule by mouth twice daily Referrals / Follow Up: Ang Acosta MD [Primary Care Provider] - Within 2 Weeks José Porras DO [Med Staff - Active Staff] - 11/16/23 1:30 pm Disposition Disposition (needs filled in before D/C Order can be placed): Home, Self Care Charges/Coding Visit Charges Inpatient E&M: 85721 Disch Hosp >30min
[2023-07-21 13:13] VITALS: BP 95/45; PULSE 97; RESP 18; TEMP 36.6; O2SAT 98
[2023-07-22 09:52] LABS: Pathologist Comment/Body Fluid Reviewed
== END 2023-07-21 15:00 | disposition home or self-care (01) ==
LOC: ED 19:06 → MS3 23:28 → MS2 07-21 01:48
PROVIDERS: Admitting Provider Hospitalist; Emergency Provider Student in an Organized Health Care Education/Training Program; PCP Family Medicine
DX: K70.11 Alcoholic hepatitis with ascites (principal); L97.521 Non-pressure chronic ulcer of other part of left foot limited to breakdown of skin; K74.60 Unspecified cirrhosis of liver; J44.9 Chronic obstructive pulmonary disease, unspecified; S90.212A Contusion of left great toe with damage to nail, initial encounter; K52.9 Noninfective gastroenteritis and colitis, unspecified; F17.210 Nicotine dependence, cigarettes, uncomplicated; R16.1 Splenomegaly, not elsewhere classified; Z79.899 Other long term (current) drug therapy; Z23 Encounter for immunization
CPT/HCPCS: 49083; 36415; 73630; 74177; 80048; 80053; 80076; 83690; 85025; 85610; 87070; 87075; 87205; 88108; 88305; 88313; 89050; 90715; 96365; 99221; 99284; Q9967; A4216; G0378

== ENCOUNTER → 2023-08-15 | Outpatient (CLI) | payer MEDICAID, SELFPAY ==
[2023-08-15 11:47] VITALS: BP 113/80; BP 124/77; BP 128/75; PULSE 61; PULSE 73; PULSE 76; RESP 18; TEMP 36.6; O2SAT 100; O2SAT 98
[2023-08-15] MEDS: Lidocaine 2% (20 ml mdv) 20 ML Vial INFILT (11:50)
--- NOTE | 2023-08-15 11:50 | FLU_PTH ---
PATIENT: CAROLINA HIGHTOWER LOC: [facility]#:[id number] AGE/SX: 47/F ROOM: RE08/15/[address]: Dr. Son Adams MD : 1975 BED: DIS: 08/15/2023 SPEC #: [id number] RECD: 08/15/23 12:46 STATUS: TRAMAINE REQ #: [id number] KYLAH: 08/15/23 11:[address]: Son Adams DEPT: CYTOLOGY RECD BY: Sury Hutton ENTERED: 08/15/23 12:47 SP TYPE: Fluid OTHR DR: MD Dr. José Govea, DO Tissues: PARACENTESIS FLUID Procedures: Special Stain Group II Cytospin Fluid HEADER OPERATION: Ultrasound-guided paracentesis PRE-OP DIAGNOSIS: Ascites TISSUE SUBMITTED: Paracentesis fluid for cytology DIAGNOSIS CYTOLOGY Paracentesis fluid for cytology (cytospin): Negative for malignant cells. AM:samy 08/16/2023 CYTOLOGY STUDY Slides are reviewed. CYTOLOGY GROSS Received is 85 ml of yellow cloudy fluid labeled with the patient's name and and designated per the requisition as paracentesis. Submitted for cytology preparation. / samy 08/15/2023 TC:5 CPT: 04332
[2023-08-15 12:18] LABS: Cytology, Body Fluid / CSF SEE PATHOLOGY REPORT
[2023-08-15] MEDS: 0.9% Saline Lock 10 ML Syringe IV (12:28)
[2023-08-15 12:37] LABS: Body Fluid Mononuclear WBC # 0.149 10^3/uL; Body Fluid Mononuclear WBC % 96.1 %; Body Fluid Polynuclear WBC # 0.006 10^3/uL; Body Fluid Polynuclear WBC % 3.9 %; Body Fluid Total Cells Counted 0.228 10^3/ul; White Blood Count/Body Fluid 0.155 10^3/uL
[2023-08-15 12:39] LABS: Appearance/Body Fluid CLEAR; Auto B Fluid Analyzer BKGD Ct COUNTS W/IN LIMITS (W/IN LIMITS); Color/Body Fluid LT YEL; Source- Body Fluid OTHER
[2023-08-15] MEDS: Albumin Human 25% (100 mL) 25 GM/100 ML BAG IV (12:49)
[2023-08-15 12:59] VITALS: BP 119/71; PULSE 66; RESP 16; TEMP 36.2; O2SAT 100; BMI 36.6
[2023-08-15 13:08] LABS: Glucose, Body Fluid 101 mg/dL (40-70); LDH,Body Fluid 41 Units/L (Not Establ.); Protein, Body Fluid 0.8 g/dL (Not Establ.)
--- NOTE | 2023-08-15 13:16 | PCM.OP.PRO ---
Procedure Report Date of Procedure: 08/15/23 Assessment & Plan Assessment/Plan (1) Ascites: QUALIFIERS: Ascites type: due to alcoholic hepatitis Qualified Code(s): K70.11 - Alcoholic hepatitis with ascites PLAN: PROCEDURE: Ultrasound guided paracentesis ORDERING PROVIDER: Dr. Adams INDICATION: Female, 47 years old. Ascites. PROVIDER: JOSHUA Mc TECHNIQUE: The risks, benefits, and alternatives to the procedure were explained to the patient. The specific risks of bleeding, infection, and damage to bowel were detailed and accepted. Witnessed informed consent was obtained. The abdomen was ultrasonographically surveyed. An appropriate pocket of fluid was identified in the left lower quadrant. The skin was prepped with Betadine swabs and sterile field established. 2% lidocaine was used for local anesthetic. Using ultrasound guidance, the peritoneal cavity was accessed with a 5-[place] paracentesis needle/catheter system. The trocar was removed. A total of 5100 ml of clear yellow colored fluid was removed from the peritoneal cavity. The catheter was removed and a sterile dressing was applied. The procedure was well tolerated. IMPRESSION: Successful ultrasound-guided paracentesis with left lower quadrant access site. Procedures Radiology Radiology US Procedures: 31654 Paracentesis
[2023-08-15 13:19] LABS: Red Cell Count/Body Fluid 185 /mm3
[2023-08-15 13:38] LABS: Body Fluid QC Type(s) BF1Q,BF2Q; Lymphocytes 51 %; Macrophages 5 %; Monocytes 37 %; Neutrophil (Segs) 4 %; Other Cell Type/BF 3 %
[2023-08-15 14:40] VITALS: BP 117/58; PULSE 72
[2023-08-17 15:01] LABS: Pathologist Comment/Body Fluid Reviewed
== END | disposition home or self-care (01) ==
PROVIDERS: PCP Family Medicine; Referring Provider Internal Medicine; Visit Provider Internal Medicine
DX: K70.11 Alcoholic hepatitis with ascites (principal)
CPT/HCPCS: 96365; 96366; 88305; 49083; 82945; 83615; 84157; 87070; 87075; 87205; 88108; 88313; 89050; J7050; P9047

== ENCOUNTER 2023-08-22 06:51 | Emergency (ER) | payer MEDICAID, SELFPAY ==
[2023-08-22 06:55] VITALS: BP 147/73; PULSE 79; RESP 18; TEMP 36.4; O2SAT 97; BMI 37.6
--- NOTE | 2023-08-22 07:54 | EDS_ITS ---
HPI HPI - Psych History of Present Illness Chief Complaint: Mental Health Narrative Narrative: 47-year-old female presenting with depression. Patient was brought in by [employer]. Patient states that she stated she wanted to kill herself and kill all the people in [place]. She states that she only said this to try to get help. She is feeling very depressed because this is an anniversary of her son's a couple of years ago. She does not have a plan for suicide. She does not have a plan to kill anybody. She states that she does feel like she needs help. She states she is doing drugs and will do anything she can get her hands on. She states she drank a half of fifth of Bacardi last night. She states he is not on any medications currently because prescriptions were mailed and and she somehow missed the prescriptions. Patient states she has no history of suicide attempts but does have history of depression. She states that her psychiatrist that she sees will prescribe her any medication for anxiety but she has been treated for depression. PFSH PFSH Medical History Acute insomnia Anemia Anxiety Anxiety and depression Ascites Chronic anemia Cirrhosis of liver COPD (chronic obstructive pulmonary disease) Depression Difficulty chewing Gastric reflux Hepatitis History of diverticulitis History of edema History of pain when walking History of renal disease Hyperbilirubinemia Injury of head and neck Loss of consciousness Low iron Marijuana use Migraine headache MRSA infection Obesity Open wound Polysubstance abuse Rash Restless legs Seizures Shortness of breath on exertion Smoker Substance abuse Thrombocytopenia Tobacco use Home Medications desvenlafaxine 100 mg tablet,extended release 24 hour 100 mg PO DAILY NERVE PAIN 02/20/19 [History Last Taken Unknown] Vitamin D3 1,250 mcg OTHER QWEEK SUPPLEMENT 05/20/22 [History Last Taken Unknown] topiramate 100 mg tablet 100 mg PO BID PER GASTRO 05/20/22 [History Last Taken Unknown] trazodone 100 mg tablet 100 mg PO QHS SLEEP #1 TAB 05/21/22 [Rx Last Taken Unknown] aripiprazole 30 mg tablet 30 mg PO DAILY 09/14/22 [History Last Taken Unknown] gabapentin 100 mg capsule 100 mg PO Q12H 07/20/23 [History Last Taken Unknown] lactulose 20 gram/30 mL oral solution 20 g (30 mL) PO TID 30 days #2,880 mL 07/22/23 [Rx Last Taken Unknown] nadolol 20 mg tablet 20 mg PO DAILY 30 days #30 tabs 07/22/23 [Rx Last Taken Unknown] spironolactone 50 mg tablet 75 mg (1.5 x 50 mg) PO DAILY 30 days #45 tabs 07/22/23 [Rx Last Taken Unknown] Allergy/AdvReac Type Severity Reaction Status Date / Time bupropion HCl Allergy SEIZURES Verified 08/10/23 13:21 [From Wellbutrin] codeine Allergy Rash Verified 08/10/23 13:21 Family History Mother Diabetes Father Cancer HX Throat CA. 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, marijuana, heroin and methamphetamine seatbelt use: always do you feel safe at home: Yes ROS ROS ED Constitutional Constitutional ED: Denies chills, fever(s) or sweats Eyes Eyes: Denies blurry vision or change in vision ENT ENT ED: Denies ear pain or sore throat Cardiovascular Cardiovascular: Denies chest pain, palpitations or racing heartbeat Respiratory/Chest Respiratory/Chest: Denies cough, dyspnea or sputum Gastrointestinal Gastrointestinal: Denies abdominal pain, constipation, diarrhea, nausea or vomiting Genitourinary Genitourinary ED: Denies dysuria, hematuria or urinary frequency Musculoskeletal Musculoskeletal: Denies arthralgias, myalgias or neck pain Integumentary Denies abscess, Abrasions or rash Neurologic Neurologic: Denies headache(s), paresthesias or weakness Psychiatric Psychiatric: Reports anxiety, depression and suicidal thoughts; Denies suicidal ideation Endocrine Endocrinology: Denies polydipsia or polyuria EXAM Physical Exam Const Vital Signs: 08/22/23 06:55 08/22/23 13:45 Temperature 97.5 F L 97.6 F L Temperature Source Temporal Temporal Pulse Rate 79 71 Respiratory Rate 18 18 Blood Pressure 147/73 H 131/77 H Blood Pressure Mean 97 95 Pulse Ox 97 97 Oxygen Delivery Method Room Air Positive well nourished and obese General Appearance ED: NAD; Negative for pallor Nutritional Appearance: obese HEENT normocephalic and atraumatic Eyes PERRL General Eye ED: Negative for pale conjunctiva or scleral icterus Resp normal respiratory effort Auscultation: Negative for rales, rhonchi or wheezes GI non-tender and non-distended Neuro oriented x3 and CN's II-XII intact bilaterally Psych mental status grossly normal Appearance: appropriate Attitude: calm Activity / Motor Behavior: appropriate eye contact Speech: normal speech Thought Process: No disorganized and No confused Thought Content: suicidality, No homicidality and No phobia(s) Memory / Cognition: memory grossly intact Insight: fair Judgement: fair Skin General Skin Exam: Negative for jaundice or pallor MDM MDM MDM Narrative Medical decision making narrative: Patient presents initially stating she is suicidal and homicidal, however she told me that she only said this to get help. She does not want to and she states she is does not want to hurt herself because she has other kids that she wants to live for. She does state that she is very depressed and needs help. She is currently not medicated due to medication issues in the mail. She is self treating with drugs and alcohol. I think she would benefit from inpatient care and so that she. She is requesting help. Appropriate clearance labs will be obtained. CBC shows normal white cell count at 6.5. Hemoglobin near baseline at 10.2. Platelets are 74 which is also near baseline. Total bilirubin 1.8, AST 123, ALT 66, alkaline phosphatase 156. This is where they are usually. Ammonia level 76.0. This is slightly higher than her usual range although patient is not confused. I will give her a dose of lactulose 20 g here. Drug screen positive amphetamines, MDMA, cannabinoids. EtOH negative. Patient medically cleared for psychiatric valuation at this time. Patient was seen by the social service assistant and plan is currently to place her. She has been cooperative. Currently social work is looking for a place that can detox her to which she has been using drugs and alcohol. She will be signed out to incoming ED physician for monitoring until placement can occur. Impression: 1. depression 2. Suicidal thoughts 3. History of cirrhosis Lab Data Labs: Laboratory Results - last 24 hr 08/22/23 08/22/23 08/22/23 07:35 08:25 08:57 WBC 6.5 RBC 4.46 Hgb 10.2 L Hct 33.8 L MCV 75.8 L MCH 22.9 L MCHC 30.2 L RDW Std Deviation 56.9 H RDW Coeff of Katalina 20.7 H Plt Count 74 L Immature Gran % (Auto) 0.200 Neut % (Auto) 54.4 Lymph % (Auto) 29.4 [place] % (Auto) 11.0 H Eos % (Auto) 4.1 Baso % (Auto) 0.9 Absolute Neuts (auto) 3.6 Absolute Lymphs (auto) 1.92 Nucleated RBC % 0 Platelet Estimate MOD DEC Anisocytosis 1+ Sodium 139 Potassium 3.4 L Chloride 110 H Carbon Dioxide 25.0 Anion Gap 4 L BUN 11 Creatinine 0.92 Estim Creat Clear Calc 58.50 Est GFR (MDRD) Af Amer 83 Est GFR (MDRD) Non-Af 68 BUN/Creatinine Ratio 11.9 Glucose 124 H Calcium 8.7 Total Bilirubin 1.80 H AST 123 H ALT 66 H Alkaline Phosphatase 156 H Ammonia 76.0 H Total Protein 6.7 Albumin 3.0 L Globulin 3.7 Albumin/Globulin Ratio 0.8 L Serum , Qual NEGATIVE Urine Opiates Screen NEGATIVE Urine Methadone Screen NEGATIVE Ur Barbiturates Screen NEGATIVE Ur Phencyclidine Scrn NEGATIVE Ur Amphetamines Screen POSITIVE H MDMA (Ecstasy) Screen POSITIVE H U Benzodiazepines Scrn NEGATIVE Urine Cocaine Screen NEGATIVE U Cannabinoids Screen POSITIVE H Ur Drug Screen Comment Ethyl Alcohol < 3.0 Discharge Plan Triage Chief Complaint: Mental Health ED Provider: Darius Rosales Dx/Rx/DC Orders Prescriptions: No Action desvenlafaxine 100 mg tablet extended release 24hr 100 mg PO DAILY spironolactone 50 mg tablet 75 mg PO DAILY 30 Days Qty: 45 2RF nadolol 20 mg tablet 20 mg PO DAILY 30 Days Qty: 30 2RF Rx Instructions: Hold for heart less than 50 or systolic blood pressure less than 100 mmHg. lactulose 20 gram/30 mL solution 20 g PO TID 30 Days Qty: 2880 2RF Patient Comments: HAS BUT NOT USING Rx Instructions: And adjust the frequency to have him goal of 3 bowel movements per day Vitamin D3 1,250 mcg OTHER QWEEK Rx Instructions: TAKES ON MODAY BY MOUTH topiramate 100 mg tablet 100 mg PO BID Rx Instructions: BEFORE MEALS trazodone 100 mg tablet 100 mg PO QHS Qty: 1 0RF aripiprazole 30 mg tablet 30 mg PO DAILY gabapentin 100 mg capsule 100 mg PO Q12H Patient Comments: Take 1 capsule by mouth twice daily Primary Care Provider: Ang Acosta Referrals: Ang Acosta MD [Primary Care Provider] -
--- NOTE | 2023-08-22 08:02 | ED.RN ---
PER DR. NICOLE DOES NOT REQUIRE A SITTER AND IS NOT PINK SLIPPED AT THIS TIME.
[2023-08-22 08:12] LABS: Amphetamine Urine VISTA POSITIVE (<1000 ng/mL); Barbiturate Urine VISTA NEGATIVE (< 200 ng/mL); Benzodiazepine Urine VISTA NEGATIVE (< 200 ng/mL); Cocaine Urine VISTA NEGATIVE (< 300 ng/mL); Ecstacy Urine VISTA POSITIVE (< 500 ng/mL); Methadone Urine VISTA NEGATIVE (< 300 ng/mL); PCP Urine VISTA NEGATIVE (< 25 ng/mL); THC Urine VISTA POSITIVE (< 50 ng/mL); Vista UDS pH Range 5
[2023-08-22 08:34] LABS: Absolute Lymphocyte Count 1.92 X10^3/uL (0.83-4.51); Absolute Neutrophil Count 3.6 X10^3/uL (2.0-7.7); Basophil# 0.06 X10^3/uL; Basophil% 0.9 % (0-1); Eosinophil# 0.27 X10^3/uL; Eosinophils% 4.1 % (0-5); Hematocrit 33.8 % (37-47); Hemoglobin 10.2 g/dL (12.0-15.0); Lymphocyte # 1.92 X10^3/ul (0.83-4.51); Lymphocyte % 29.4 % (19-41); Mean Corp Hgb Conc 30.2 g/dL (32-36); Mean Corpuscular Hgb 22.9 pg (27.0-32.0); Mean Corpuscular Volume 75.8 fL (81-99); Monocyte# 0.72 X10^3/uL; NRBC Flagged by Analyzer 0 % (0-5); Neutrophil # 3.55 X10^3/uL (2.7-7.7); Neutrophil % 54.4 % (47-70); POSITIVE COUNT YES; POSITIVE MORPHOLOGY YES; Platelet Count 74 K/mm3 (150-450); RBC Distribution Width CV 20.7 % (11.6-14.6); RBC Distribution Width SD 56.9 fl (35.1-43.9); Red Blood Count 4.46 M/mm3 (4.2-5.4); White Blood Count 6.5 K/mm3 (4.4-11.0)
[2023-08-22 08:35] LABS: Differential Indicated SCAN CRITERIA MET
[2023-08-22 08:41] LABS: Internal QC Validated? YES +Cl - CLEAR BKGD; Pregnancy, Serum, hCG Quali. NEGATIVE Negative
[2023-08-22 08:49] LABS: ALB/GLOB Ratio 0.8 RATIO (0.9-2.4); AST(SGOT) 123 U/L (15-37); Alanine Aminotransfer ALT/SGPT 66 U/L (13-56); Alkaline Phosphatase 156 U/L (45-117); Anion Gap 4 (5-15); BUN 11 mg/dL (7-18); BUN/Creat Ratio 11.9 RATIO (10-20); Calcium,Total 8.7 mg/dL (8.5-10.1); Chloride 110 mmol/L (98-107); Creatinine, Serum 0.92 mg/dL (0.55-1.02); EST Glomerular Filtration Rate 68 mL/min (>60); Est Glom Filt Rate - Afr Amer 83 mL/min (>60); Globulin 3.7 g/dL (2.2-4.2); Glucose 124 mg/dL (74-106); Potassium 3.4 mmol/L (3.5-5.1); Protein, Total 6.7 g/dL (6.4-8.2); Sodium Level 139 mmol/L (136-145)
[2023-08-22 08:56] LABS: Anisocytosis 1+; Platelet Estimate MOD DEC (ADEQ)
[2023-08-22 08:57] LABS: Alcohol, Blood (Medical)-Serum < 3.0 mg/dL
[2023-08-22] MEDS: Lactulose 20 GM/30 ML UDC PO (10:14)
[2023-08-22 13:45] VITALS: BP 131/77; PULSE 71; RESP 18; TEMP 36.4; O2SAT 97
--- NOTE | 2023-08-22 14:22 | ED.RN ---
pt reports does not want daughter given updates
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
--- NOTE | 2023-08-22 17:04 | ED.RN ---
[facility] CALLED, ETA 2000
--- NOTE | 2023-08-22 17:10 | CM.ED ---
Social Work Patient referred to [facility] and [facility] due to need for dual diagnosis treatment and possible detox. [facility] called and accepted patient. Dr. Null accepted patient to [facility] unit. Request pink slip and nurse to nurse [phone]. SW faxed pink slip made out to [facility]. Patient pending transport to [facility]. Mignon Novak [employer], STEEL ANALYST
[2023-08-22 17:42] VITALS: BP 131/89; PULSE 71; RESP 20; TEMP 36.8; O2SAT 100
== END 2023-08-22 21:25 ==
LOC: ED 08:04
PROVIDERS: Emergency Provider Student in an Organized Health Care Education/Training Program; PCP Family Medicine; Visit Provider Student in an Organized Health Care Education/Training Program
DX: F32.A Depression, unspecified (principal); J44.9 Chronic obstructive pulmonary disease, unspecified; R45.851 Suicidal ideations; F17.210 Nicotine dependence, cigarettes, uncomplicated; Z79.899 Other long term (current) drug therapy
CPT/HCPCS: 80053; 80307; 82077; 82140; 84703; 85025; 87811; 99285

== ENCOUNTER 2023-09-24 20:41 | Emergency (ER) | payer MEDICAID, SELFPAY ==
[2023-09-24 20:43] VITALS: BP 148/94; PULSE 63; RESP 16; TEMP 36.6; O2SAT 100; BMI 36.8
--- NOTE | 2023-09-24 20:46 | ED.RN ---
I don't know my meds and I know I'm not taking them right .
--- NOTE | 2023-09-24 20:56 | CT_ITS ---
INDICATION: pain EXAMINATION: CT NECK WITH CONTRAST - CT Soft Tissue Neck W/ Contrast Injection TECHNIQUE: Helically acquired images were obtained of the neck following IV contrast. A radiation dose optimization technique was used for this scan. IV Contrast dosage and agent: 75 cc [id number] COMPARISON: None. FINDINGS: Mastoid air cells are clear. Paranasal sinuses overall are clear. Intact orbits. Vasculature at the skull base is normal. Normal carotid arteries. Intact thyroid gland. Normal jugular veins. Normal appearing nasopharynx. Grossly intact vallecula and piriform sinuses. Closed glottis. Normal air column on residency program coordinator view. Parapharyngeal fat planes are normal. There is no abscess in the peritonsillar region. Submandibular glands are normal. Parotid glands are normal. The epiglottis is normal in size. There is no abnormal air at the floor the mouth. Visualized spine is normal. Prevertebral soft tissues are normal. Normal adenoidal tissue. Few nonspecific cervical nodes are detected bilaterally. Grossly clear lung apices. CT/Soft Tissue Neck WITH Contrast IMPRESSION: It is unclear if this patient has tongue swelling (attention on physical exam), however remainder of the soft tissues involving the pharynx and parapharyngeal soft tissues are probably within normal limits. No abscess appreciated. Electronically Signed: Ashwin Cisneros MD at 23:03 [facility] ,
--- NOTE | 2023-09-24 20:59 | EX.ED.DYSGE1 ---
HPI <Dr. Emperatriz Craig MD - Last Filed: 09/24/23 23:01> History of Present Illness Chief Complaint: Cold Sx Informant: patient Onset/Context/Timing Onset: Days Context: Gradual Onset Narrative Narrative: Patient presents secondary to throat pain and ear pain for the past couple of days. She has not had much in the way of cough or congestion. She had subjective fevers at home but did not measure with a thermometer. Her last dose of ibuprofen was 4 hours ago. PFSH <Dr. Emperatriz Craig MD - Last Filed: 09/24/23 23:01> PFS Medical History Acute insomnia Anemia Anxiety and depression Ascites Chronic anemia Cirrhosis of liver COPD (chronic obstructive pulmonary disease) Difficulty chewing Gastric reflux Hepatitis History of diverticulitis History of edema History of pain when walking History of renal disease Hyperbilirubinemia Injury of head and neck Loss of consciousness Low iron Marijuana use Migraine headache MRSA infection Obesity Open wound Polysubstance abuse Rash Restless legs Seizures Shortness of breath on exertion Smoker Substance abuse Thrombocytopenia Tobacco use Home Medications desvenlafaxine 100 mg tablet,extended release 24 hour 100 mg PO DAILY NERVE PAIN 02/20/19 [History Last Taken Unknown] Vitamin D3 1,250 mcg OTHER QWEEK SUPPLEMENT 05/20/22 [History Last Taken Unknown] topiramate 100 mg tablet 100 mg PO BID PER GASTRO 05/20/22 [History Last Taken Unknown] trazodone 100 mg tablet 100 mg PO QHS SLEEP #1 TAB 05/21/22 [Rx Last Taken Unknown] aripiprazole 30 mg tablet 30 mg PO DAILY 09/14/22 [History Last Taken Unknown] gabapentin 100 mg capsule 100 mg PO Q12H 07/20/23 [History Last Taken Unknown] lactulose 20 gram/30 mL oral solution 20 g (30 mL) PO TID 30 days #2,880 mL 07/22/23 [Rx Last Taken Unknown] nadolol 20 mg tablet 20 mg PO DAILY 30 days #30 tabs 07/22/23 [Rx Last Taken Unknown] spironolactone 50 mg tablet 75 mg (1.5 x 50 mg) PO DAILY 30 days #45 tabs 07/22/23 [Rx Last Taken Unknown] Allergy/AdvReac Type Severity Reaction Status Date / Time bupropion HCl Allergy SEIZURES Verified 09/24/23 20:43 [From Wellbutrin] codeine Allergy Rash Verified 09/24/23 20:43 Family History Mother Diabetes Father Cancer HX Throat CA. 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, marijuana, heroin and methamphetamine seatbelt use: always do you feel safe at home: Yes ROS <Dr. Emperatriz Craig MD - Last Filed: 09/24/23 23:01> ROS ED Constitutional Constitutional ED: Reports fever(s) and subjective ENT ENT ED: Reports ear pain and sore throat Cardiovascular Cardiovascular: Denies chest pain Respiratory/Chest Respiratory/Chest: Denies cough or dyspnea Gastrointestinal Gastrointestinal: Denies abdominal pain, diarrhea or vomiting Neurologic Neurologic: Denies headache(s) Allergic/Immunologic Allergic/Immunologic ED: Reports mouth swelling EXAM <Dr. Emperatriz Craig MD - Last Filed: 09/24/23 23:01> Physical Exam Const Vital Signs: 09/24/23 20:43 09/24/23 21:56 Temperature 97.8 F Temperature Source Temporal Pulse Rate 63 Respiratory Rate 16 Respiratory Effort Short of Breath Respiratory Pattern Tachypnea Blood Pressure 148/94 H Blood Pressure Mean 112 Pulse Ox 100 Positive well nourished and well developed General Appearance ED: well developed HEENT Reports moist mucous membranes HEENT Narrative: Patient speaking with a strong voice and tolerating secretions well. Intraoral examination feels no obvious abnormalities. Posterior pharynx exam is unremarkable. Eyes EOMs intact bilaterally Neck Neck Narrative: Bilateral cervical lymphadenopathy noted. Trachea midline. Chest Wall inspection of chest normal and palpation of chest normal Resp normal respiratory effort and clear to auscultation bilaterally Cardio regular rate and regular rhythm GI non-tender Palpation: soft Extremity normal to inspection Neuro oriented x3 Psych Mood & Affect: anxious <Dr. Yimi Hutchinson, DO - Last Filed: 09/24/23 23:34> Physical Exam Const Vital Signs: 09/24/23 20:43 09/24/23 21:56 Temperature 97.8 F Temperature Source Temporal Pulse Rate 63 Respiratory Rate 16 Respiratory Effort Short of Breath Respiratory Pattern Tachypnea Blood Pressure 148/94 H Blood Pressure Mean 112 Pulse Ox 100 MDM <Dr. Emperatriz Craig MD - Last Filed: 09/24/23 23:01> [facility] Narrative Medical decision making narrative: Swab for COVID, influenza, RSV obtained. Clinically patient does not have evidence of strep pharyngitis. CT scan of the neck with contrast will be obtained to ensure no deep infection. Lab Data Labs: Laboratory Results - last 24 hr 09/24/23 22:00 Sodium 144 Potassium 3.6 Chloride 117 H Carbon Dioxide 22.0 Anion Gap 5 BUN 12 Creatinine 1.00 Estim Creat Clear Calc 53.82 Est GFR (MDRD) Af Amer 76 Est GFR (MDRD) Non-Af 63 BUN/Creatinine Ratio 12.0 Glucose 122 H Calcium 8.9 Radiography Diagnostic Testing: Clinical Impression(s) from Imaging Studies Soft Tissue Neck CT 09/24/23 20:56 IMPRESSION: It is unclear if this patient has tongue swelling (attention on physical exam), however remainder of the soft tissues involving the pharynx and parapharyngeal soft tissues are probably within normal limits. No abscess appreciated. Electronically Signed: Ashwin Cisneros MD at 23:03 EST , Treatment and Re-Evaluation :: Swab for COVID, influenza, RSV is negative. Chemistry studies are unremarkable. Patient sent for CT imaging of the soft tissue neck with contrast. Patient signed out to oncoming physician for final review of CT scan and disposition. <Dr. Yimi Hutchinson DO - Last Filed: 09/24/23 23:34> [facility] Lab Data Labs: Laboratory Results - last 24 hr 09/24/23 22:00 Sodium 144 Potassium 3.6 Chloride 117 H Carbon Dioxide 22.0 Anion Gap 5 BUN 12 Creatinine 1.00 Estim Creat Clear Calc 53.82 Est GFR (MDRD) Af Amer 76 Est GFR (MDRD) Non-Af 63 BUN/Creatinine Ratio 12.0 Glucose 122 H Calcium 8.9 Radiography Diagnostic Testing: Clinical Impression(s) from Imaging Studies Soft Tissue Neck CT 09/24/23 20:56 IMPRESSION: It is unclear if this patient has tongue swelling (attention on physical exam), however remainder of the soft tissues involving the pharynx and parapharyngeal soft tissues are probably within normal limits. No abscess appreciated. Electronically Signed: Ashwin Cisneros MD at 23:03 EST , Treatment and Re-Evaluation :: Swab for COVID, influenza, RSV is negative. Chemistry studies are unremarkable. Patient sent for CT imaging of the soft tissue neck with contrast. Patient signed out to oncoming physician for final review of CT scan and disposition. Patient was turned over to me by Dr. Craig @11 PM Brief history: 47-year-old female presents with neck pain, sore throat. States she is current on antibiotics for bacterial pharyngitis. No shortness of breath Physical exam: Patient was hemodynamically stable, afebrile, nontoxic-appearing. There is no stridor, no drooling, patient was controlling her secretions, she speaking full sentences. There is respiratory distress. Bilateral ears without external intravenous swelling, no mastoid tenderness, no middle ear effusion or hyperemia to tympanic membranes. Full neck range of motion. No neck swelling. Tongue looks clinically of normal size. Labs and images reviewed (if obtained): BMP without evidence of significant electrolyte abnormalities, no anion gap, no acute kidney injury. COVID flu RSV negative CT scan of the neck shows no evidence of obvious deep neck space infection or airway occlusion MDM/plan: The synthesis of the patient's history, physical exam, labs images suggest no acute life-limiting pathology. May be consistent with bacterial viral pharyngitis. Patient is already covered with antibiotic. I will add steroids as well as recommend Tylenol and ibuprofen and continued antimicrobial therapy with her current course of antibiotics. Gave strict return precautions and follow-up instructions. Impression: 1. Sore throat Disposition: Discharge home Discharge Plan Triage Chief Complaint: Cold Sx ED Provider: Emperatriz Craig Dx/Rx/DC Orders Prescriptions: No Action desvenlafaxine 100 mg tablet extended release 24hr 100 mg PO DAILY spironolactone 50 mg tablet 75 mg PO DAILY 30 Days Qty: 45 2RF nadolol 20 mg tablet 20 mg PO DAILY 30 Days Qty: 30 2RF Rx Instructions: Hold for heart less than 50 or systolic blood pressure less than 100 mmHg. lactulose 20 gram/30 mL solution 20 g PO TID 30 Days Qty: 2880 2RF Patient Comments: HAS BUT NOT USING Rx Instructions: And adjust the frequency to have him goal of 3 bowel movements per day Vitamin D3 1,250 mcg OTHER QWEEK Rx Instructions: TAKES ON MODAY BY MOUTH topiramate 100 mg tablet 100 mg PO BID Rx Instructions: BEFORE MEALS trazodone 100 mg tablet 100 mg PO QHS Qty: 1 0RF aripiprazole 30 mg tablet 30 mg PO DAILY gabapentin 100 mg capsule 100 mg PO Q12H Patient Comments: Take 1 capsule by mouth twice daily Primary Care Provider: Ang Acosta Referrals: Ang Acosta MD [Primary Care Provider] -
--- OUTSIDE RECORDS SUMMARY | 2023-09-24 21:10 | XMS RPT_ITS | CCD ---
Author Name Unknown Address [id number] [place] [address] Organization [facility] Care Team Providers Care Jack Frame Tender Name Role Phone GELA AGUDELO Unavailable Unavailable DACIA LEO Unavailable RENAY BENTLEY Unavailable Unav ailable RENAY BENTLEY Unavailable Rosev ailDacia Osborn MD Primary Care Provider Dacia Leo MD Primary Care Provider Dacia Leo MD Primary Care Provider Dacia Leo MD Primary Care Provider Unavailable Primary Care Provider UnavailANDERSON Tucker Consulting Unavailable CINDI SMITH Admitting Unavailable SAIMA TAN Attending Unavailable DACIA LEO Referring Unavailable DACIA LEO Primary Care Unavailable DACIA LEO Primary Care Unavailable DACIA LEO Primary Care Unavailable Allergies Allergy Classification Reported Allergen(s) Allergy Type Date of Onset Reaction(s) Facility (20 sources) Aspirin; Translations: [ASPIRIN] Drug Allergy 5 [facility] Repository (20 sources) buPROPion; Translations: [BUPROPION HCL] Drug Allergy 3 Other: See Comments [facility] Repository (20 sources) Codeine; Translations: [CODEINE] Drug Allergy 5 Rash, Hives [facility] Repository (20 sources) buPROPion; Translations: [BUPROPION] Drug Allergy 3 Other: See Comments [facility] (20 sources) predniSONE; Translations: [PREDNISONE] Drug Allergy 09-24-201 9 Rash [facility] Work Phone: (3 sources) Prednisone Propensity to adverse reactions 9 Rash [facility] Medications Current Medications Medication Drug Class(es) Dates Sig (Normalized) Sig (Original) busPIRone hydrochloride 10 mg oral tablet (3 sources) take 1 tablet by mouth four times daily as needed busPIRone (Buspar) 10 MG tablet Take 10 mg by mouth 4 times daily as needed. 0 Active cephalexin 500 mg oral capsule (1 source) Cephalosporin Antibacterial Start: 03-11-2022 End: 03-21-2022 take 1 capsule by mouth three times daily cephALEXin (KEFLEX) 500 mg capsule Indications: Bacterial skin infection Take 1 capsule by mouth three times daily for 10 days. 30 capsule 0 03/11/2022 03/21/2022 Active Completed/Discontinued Medications Medication Drug Class(es) Dates Sig (Normalized) Sig (Original) Acetaminophen (2 sources) Start: 09-10-2023 End: 09-15-2023 take 1 tablet by mouth every six hours as needed for pain and fever acetaminophen (Tylenol) tablet 650 mg 20 ml albumin human, senior care 250 mg/ml injection (2 sources) Human Serum Albumin Start: 09-10-2023 End: 09-10-2023 albumin human 25 % IV solution 50 g [id number] 200 actuat albuterol 0.09 mg/actuat metered dose inhaler (20 sources) beta2-Adrenergic Agonist Start: 01-11-2022 take 2 puff(s) by inhalation every four hours as needed albuterol HFA (PROAIR HFA) 90 mcg/actuation inhaler Inhale 2 Puffs as instructed every 4 hours as needed. 18 g 0 01/11/2022 Active Problems Active Problems Problem Classification Problem Date Documented Date Episodic/Chronic Allergic reactions (1 source) Inflammatory dermatosis; Translations: [Dermatitis, unspecified] Episodic Anxiety disorders (1 source) Picking own skin; Translations: [Excoriation (skin-picking) disorder] Chronic Esophageal disorders (20 sources) Gastroesophageal reflux disease; Translations: [Gastro-esophageal reflux disease without esophagitis] Onset: 08-24-2010 08-24-2010 Chronic Hepatitis (20 sources) Chronic viral hepatitis C; Translations: [Chronic hepatitis C] Onset: 08-04-2018 10-12-2018 Chronic Intestinal obstruction without hernia (9 sources) Small bowel obstruction; Translations: [Unspecified intestinal obstruction, unspecified as to partial versus complete obstruction] Onset: 09-09-2023 09-09-2023 Episodic Mood disorders (20 sources) Major depressive disorder; Translations: [Major depressive disorder, single episode, unspecified] Onset: 04-03-2007 04-14-2017 Chronic Other aftercare (1 source) Admission statuses; Translations: [Encounter for other specified aftercare] Episodic Other skin disorders (1 source) Acne vulgaris; Translations: [Acne vulgaris] Episodic Other upper respiratory infections (1 source) Acute upper respiratory infection; Translations: [Acute upper respiratory infection, unspecified] Episodic Skin and subcutaneous tissue infections (4 sources) Bacterial infection of skin; Translations: [Local infection of the skin and subcutaneous tissue, unspecified] Episodic Substance-related disorders (5 sources) Substance abuse; Translations: [Other psychoactive substance use, unspecified, uncomplicated] Onset: 09-11-2023 09-11-2023 Episodic Viral infection (1 source) Viral disease; Translations: [Viral infection, unspecified] Episodic Past or Other Problems Problem Classification Problem Date Documented Date Episodic/Chronic Malaise and fatigue (20 sources) Physical deconditioning; Translations: [Other malaise] Onset: 12-10-2011 12-10-2011 Episodic Other circulatory disease (20 sources) Retroperitoneal hemorrhage; Translations: [Hemorrhage, not elsewhere classified] Onset: 08-05-2018 08-05-2018 Episodic Other connective tissue disease (20 sources) Myofascial pain; Translations: [Myalgia, other site] Onset: 12-10-2011 12-10-2011 Episodic Other screening for suspected conditions (not mental disorders or infectious disease) (3 sources) Patient encounter status; Translations: [Encounter for screening mammogram for malignant neoplasm of breast] Onset: 01-24-2023 Episodic Residual codes; unclassified (20 sources) Insomnia; Translations: [Insomnia, unspecified] Onset: 07-02-2009 07-02-2009 Episodic Residual codes; unclassified (20 sources) Tobacco user; Translations: [Tobacco use] Onset: 04-14-2017 04-14-2017 Episodic Spondylosis; intervertebral disc disorders; other back problems (20 sources) Low back pain; Translations: [Lumbago] Onset: 02-12-2008 02-12-2008 Episodic Sprains and strains (20 sources) Low back strain; Translations: [Strain of muscle, fascia and tendon of lower back, initial encounter] Onset: 12-10-2011 12-10-2011 Episodic Results Test Name Value Interpretation Reference Range Facil ity Vital Signs Date Time Vital Sign Value Performing Clinician Faci lity 09-15-2023 12:01-0500 Body mass index (BMI) [Ratio] 38.38 kg/m2 Lenny Macdonald MD Work Phone: [facility] 09-15-2023 12:01-0500 Body weight 95.21 kg Lenny Macdonald MD Work Phone: [facility] 09-15-2023 11:39-0500 Body height 157.5 cm Lenny Macdonald MD Work Phone: [facility] 09-15-2023 06:02-0500 Body temperature 97.3 [degF] Lenny Macdonald MD Work Phone: [facility] 09-15-2023 06:02-0500 Diastolic blood pressure 53 mm[Hg] Lenny Macdonald MD Work Phone: [facility] 09-15-2023 06:02-0500 Heart rate 68 /min Lenny Macdonald MD Work Phone: [facility] 09-15-2023 06:02-0500 Respiratory rate 16 /min Lenny Macdonald MD Work Phone: [facility] 09-15-2023 06:02-0500 SaO2% (BldA) [Mass fraction] 98 % Lenny Macdonald MD Work Phone: [facility] 09-15-2023 06:02-0500 Systolic blood pressure 91 mm[Hg] Lenny Macdonald MD Work Phone: [facility] 12-02-2022 12:49-0500 Body temperature 98.29 [degF] Joselito GARCIA Work Phone: [facility] 12-02-2022 12:49-0500 Body weight 94.62 kg Krislyn Aberegg PA Work Phone: [facility] 12-02-2022 12:49-0500 Diastolic blood pressure 78 mm[Hg] Krislyn Aberegg PA Work Phone: [facility] 12-02-2022 12:49-0500 Heart rate 64 /min Krislyn Aberegg PA Work Phone: [facility] 12-02-2022 12:49-0500 Respiratory rate 16 /min Krislyn Aberegg PA Work Phone: [facility] 12-02-2022 12:49-0500 SaO2% (BldA) [Mass fraction] 98 % Krislyn Aberegg PA Work Phone: [facility] 12-02-2022 12:49-0500 Systolic blood pressure 104 mm[Hg] Krislyn Aberegg PA Work Phone: [facility] 09-29-2022 17:56-0500 Body temperature 98.2 [degF] Ananda Prabhakar MD Work Phone: [facility] 09-29-2022 17:56-0500 Body weight 94.98 kg Ananda Prabhakar MD Work Phone: [facility] 09-29-2022 17:56-0500 Diastolic blood pressure 82 mm[Hg] Ananda Prabhakar MD Work Phone: [facility] 09-29-2022 17:56-0500 Heart rate 67 /min Ananda Prabhakar MD Work Phone: [facility] 09-29-2022 17:56-0500 Respiratory rate 20 /min Ananda Prabhakar MD Work Phone: [facility] 09-29-2022 17:56-0500 SaO2% (BldA) [Mass fraction] 99 % Ananda Prabhakar MD Work Phone: [facility] 09-29-2022 17:56-0500 Systolic blood pressure 122 mm[Hg] Ananda Prabhakar MD Work Phone: [facility] 05-10-2022 15:42-0400 Diastolic blood pressure 96 mm[Hg] Dacia Leo MD Work Phone: [facility] 05-10-2022 15:42-0400 Systolic blood pressure 148 mm[Hg] Dacia Leo MD Work Phone: [facility] 05-10-2022 15:39-0400 Body weight 89.18 kg Dacia Leo MD Work Phone: [facility] 05-10-2022 15:39-0400 Heart rate 92 /min Dacia Leo MD Work Phone: [facility] 05-10-2022 15:39-0400 Respiratory rate 20 /min Dacia Leo MD Work Phone: [facility] 05-09-2022 14:43-0400 Body temperature 98.6 [degF] Blanca Dawson APRN.PLANT ASSIGNER Work Phone: [facility] 05-09-2022 14:43-0400 Body weight 91.54 kg Blanca Dawson APRN.PLANT ASSIGNER Work Phone: [facility] 05-09-2022 14:43-0400 Diastolic blood pressure 74 mm[Hg] Blanca Dawson APRN.PLANT ASSIGNER Work Phone: [facility] 05-09-2022 14:43-0400 Heart rate 85 /min Blanca Dawson APRN.PLANT ASSIGNER Work Phone: [facility] 05-09-2022 14:43-0400 Respiratory rate 21 /min Blanca Dawson APRN.PLANT ASSIGNER Work Phone: [facility] 05-09-2022 14:43-0400 SaO2% (BldA) [Mass fraction] 99 % Blanca Dawson APRN.PLANT ASSIGNER Work Phone: [facility] 05-09-2022 14:43-0400 Systolic blood pressure 126 mm[Hg] Blanca Dawson APRN.PLANT ASSIGNER Work Phone: [facility] 03-11-2022 14:26-0400 Body weight 92.08 kg Tresa Tannhof MANAGER STUDIO.PLANT ASSIGNER Work Phone: [facility] 03-11-2022 14:26-0400 Diastolic blood pressure 64 mm[Hg] Tresa Tannhof MANAGER STUDIO.PLANT ASSIGNER Work Phone: [facility] 03-11-2022 14:26-0400 Heart rate 62 /min Tresa Tannhof MANAGER STUDIO.PLANT ASSIGNER Work Phone: [facility] 03-11-2022 14:26-0400 Respiratory rate 14 /min Tresa Tannhof MANAGER STUDIO.PLANT ASSIGNER Work Phone: [facility] 03-11-2022 14:26-0400 Systolic blood pressure 106 mm[Hg] Tresa Tannhof MANAGER STUDIO.PLANT ASSIGNER Work Phone: [facility] 01-11-2022 13:23-0400 Body temperature 97.81 [degF] Becca Enmanuel MANAGER STUDIO.PLANT ASSIGNER Work Phone: [facility] 01-11-2022 13:23-0400 Body weight 96.34 kg Becca Enmanuel MANAGER STUDIO.PLANT ASSIGNER Work Phone: [facility] 01-11-2022 13:23-0400 Diastolic blood pressure 62 mm[Hg] Becca Enmanuel MANAGER STUDIO.PLANT ASSIGNER Work Phone: [facility] 01-11-2022 13:23-0400 Heart rate 65 /min Becca Enmanuel MANAGER STUDIO.PLANT ASSIGNER Work Phone: [facility] 01-11-2022 13:23-0400 Respiratory rate 21 /min Becca Enmanuel MANAGER STUDIO.PLANT ASSIGNER Work Phone: [facility] 01-11-2022 13:23-0400 SaO2% (BldA) [Mass fraction] 99 % Becca Enmanuel MANAGER STUDIO.PLANT ASSIGNER Work Phone: [facility] 01-11-2022 13:23-0400 Systolic blood pressure 102 mm[Hg] Becca Enmanuel MANAGER STUDIO.PLANT ASSIGNER Work Phone: [facility] 08-04-2018 12:36-0500 Body surface area Derived from formula [facility] 08-04-2018 12:11-0500 Body surface area Derived from formula [facility] Encounters Encounter Date Encounter Type Care Provider Facility Start: 09-16-2023 Telephone encounter Emperatriz Chacon [facility] Clinical Communication Start: 09-09-2023 End: 09-15-2023 Evaluation and management of inpatient [facility] Start: 09-09-2023 End: 09-15-2023 Evaluation and management of inpatient Lenny Macdonald MD Work Phone: [facility] Respiratory Unit 7W Procedures Date Procedure Procedure Detail Performing Clinician Start: 09-15-2023 Basic metabolic pane l calcium total Saima Tan MD Work Phone: Start: 09-14-2023 Abdom paracentesis d x/ther w/imaging guidance Saima Tan MD Work Phone: Start: 09-14-2023 Blood count complete automated Saima Tan MD Work Phone: Start: 09-14-2023 Basic metabolic pane l calcium total Saima Tan MD Work Phone: Start: 09-13-2023 Basic metabolic pane l calcium total Saima Tan MD Work Phone: Start: 09-12-2023 Comprehensive metabo lic panel Cindi Smith MD Work Phone: Start: 09-11-2023 Comprehensive metabo lic panel Cindi Smith MD Work Phone: Start: 09-10-2023 Prothrombin time Tony Armstrong MD Work Phone: Start: 09-10-2023 Abdom paracentesis d x/ther w/imaging guidance Cindi Smith MD Work Phone: Start: 09-10-2023 Comprehensive metabo lic panel Cindi Smith MD Work Phone: Start: 09-10-2023 Assay of troponin quantitative Haleigh GARCIA Work Phone: Start: 09-09-2023 Assay of troponin quantitative Haleigh GARCIA Work Phone: Start: 09-09-2023 Ct abdomen & pelvis w/contrast material Haleigh GARCIA Work Phone: Start: 09-09-2023 Drug tst prsmv instr mnt chem analyzers pr date Judah Clement MD Work Phone: Start: 09-09-2023 SARS-COV-2, FLU A/B, AND RSV COMBO Haleigh GARCIA Work Phone: Start: 09-09-2023 Urinalysis complete panel - Urine Haleigh GARCIA Work Phone: Start: 09-09-2023 Urine test visual color cmprsn meths Haleigh GARCIA Work Phone: Start: 09-09-2023 Urnls dip stick/tabl et reagent auto microscopy Haleigh GARCIA Work Phone: Start: 09-09-2023 Comprehensive metabo lic panel Haleigh GARCIA Work Phone: Start: 09-09-2023 Manual differential performed [Presence] in Blood Haleigh GARCIA Work Phone: Start: 09-09-2023 Ecg routine ecg w/le ast 12 lds i&r only Haleigh GARCIA Work Phone: Start: 09-09-2023 Radiologic exam ches t single view Haleigh GARCIA Work Phone: Start: 01-24-2023 End: 01-24-2023 Mammography Bulk Order Provider Start: 09-29-2022 COVID WITH FLUA+B, ROUTINE Ananda Prabhakar MD Work Phone: Start: 09-29-2022 Cul bact xcpt urine blood/stool aerobic isol Ananda Prabhakar MD Work Phone: Plan of Treatment Date Care Activity Detail Author Start: 2033 RSV Immunization aged 60 or older (1 - 1-dose 60+ series) RSV Immunization aged 60 or older (1 - 1-dose 60+ series) [facility] Start: 07-20-2033 DTaP/Tdap/Td Vaccines (2 - Td or Tdap) DTaP/Tdap/Td Vaccines (2 - Td or Tdap) [facility] Start: 07-20-2033 Urine microalbumin profile DTaP,Tdap,Td Vaccine (2 - Td or Tdap) [facility] Start: 06-24-2024 DIABETES SCREEN DIABETES SCREEN [facility] Start: 06-24-2024 Diabetes Screening Diabetes Screening [facility] Start: 02-21-2024 HPV TESTING HPV TESTING [facility] Start: 02-21-2024 PAP TESTING PAP TESTING [facility] Start: 01-25-2024 Mammography [facility] Start: 2023 Zoster Vaccines (1 of 2) Zoster Vaccines (1 of 2) [facility] Start: 05-27-2023 Influenza vaccination [facility] Start: 12-02-2022 End: 02-01-2023 Bacteria identified in Wound by Culture WOUND CULTURE AND GRAM STAIN Microbiology Routine Skin infection Expected: 12/02/2022, Expires: 02/01/2023 [facility] Work Phone: Immunizations Immunization Date Immunization Notes Care Provider Fa [facility] 07-20-2023 tetanus toxoid, redu viridiana diphtheria toxoid, and acellular pertussis vaccine, adsorbed Lenny Macdonald MD Work Phone: [facility] 08-06-2018 influenza, injectabl e, quadrivalent, preservative free Becca Enmanuel MANAGER STUDIO.PLANT ASSIGNER Work Phone: [facility] 08-06-2018 influenza virus vaccine, unspecified formulation Screen Wstr [facility] 08-05-2018 pneumococcal polysaccharide vaccine, 23 valent Becca Enmanuel MANAGER STUDIO.PLANT ASSIGNER Work Phone: [facility] NEGATED: Highlighted row has not occurred!09-11-2023 Influenza, injectable, [place]in [place] Canine Kidney, preservative free, quadrivalent Lenny Macdonald MD Work Phone: [facility] Payers Date Payer Category Payer Medicaid [id number] 2015 Medicaid [id number] 2015 Medicaid [facility] [place] MEDIC AID [facility] MEDICAID [id number] 2015-Present [phone] [address] [place] [address] Medicaid [id number] 2015 Medicaid [id number] Social History Date Type Detail Facility Start: 04-14-2017 End: 05-09-2022 Tobacco smoking status NHIS Smokes tobacco daily [facility] Work Phone: History of tobacco use Cigarette Smoker [facility] Work Phone: Start: 01-11-2022 End: 12-02-2022 Alcohol intake Current drinker of alcohol (finding) [facility] Start: 02-28-2020 History SDOH Alcohol Frequency 3 [facility] Start: 12-10-2011 History SDOH Alcohol Comment occasionally mixed drink [facility] Start: 04-14-2017 End: 05-09-2022 Tobacco Comment maybe more then 1 pack daily [facility] Start: 1975 Sex Assigned At Not on file [facility] Start: 01-01-2022 End: 05-26-2022 Exposure to SARS-CoV-2 (event) Not sure [facility] Work Phone: Start: 04-14-2017 End: 09-10-2023 Cigarettes smoked current (pack per day) - Reported 1 [facility] Work Phone: Start: 04-14-2017 End: 05-09-2022 Tobacco use and exposure Smokeless tobacco non-user [facility] Start: 04-30-2022 End: 05-10-2022 Exposure to SARS-CoV-2 (event) Yes [facility] Start: 02-28-2020 End: 09-10-2023 Alcohol Use Disorder Identification Test - Consumption [AUDIT-C] [facility] Work Phone: How often to you hav e a drink containing alcohol? 2-4 times a month [facility] Work Phone: Average Number of Drinks Not on file [facility] smoking consumption unknown [facility] Within the last year , have you been afraid of your partner or ex-partner? No [facility] How often to you hav e a drink containing alcohol? Never [facility] Clinical Notes 01-11-2022 to 09-20-2023 Telephone Encounter - Emperatriz Chacon LPN - 09/20/2023 9:58 AM ESTTelephone Encounter - Emperatriz Chacon LPN - 09/20/2023 9:[address] - 09/15/2023 12:12 PM EST Note Date & Type Note Facility 09-20-2023 Telephone encounter Note Unable to contact patient X2 [facility] 09-20-2023 Miscellaneous Notes Unable to contact patient X2 S: Patient admitted to: [facility] 09/09/23 B: Discharged on : 09/15/23 A: Hospital follow up call initiated to discuss any medication changes, follow up appointments and discharge instructions: Small bowel obstruction R: No contact x 1 at : [phone] documented in this encounter [facility] 09-16-2023 Telephone encounter Note S: Patient admitted to: [facility] 09/09/23 B: Discharged on : 09/15/23 A: Hospital follow up call initiated to discuss any medication changes, follow up appointments and discharge instructions: Small bowel obstruction R: No contact x 1 at : [phone] [facility] 09-15-2023 Note Formatting of this n ote might be different from the original. Social work follow up on discharge. SW notified by patients bedside RN patient needs assist with transport to home. SW spoke to patient to confirm address on file is correct. She reports she typically will use her [facility] for transport and uses their uber/lyft service. SW placed call to [facility] transport [phone]. Transport arranged for vegetable picker at [address] between 4:12-6:12pm. They will call the unit 15 minutes prior to their arrival . Ref # [id number]. chute worker updated patients bedside RN, who will update the patient. [facility] 09-15-2023 Note Formatting of this n ote might be different from the original. Social work follow up on discharge. SW notified by patients bedside RN patient needs assist with transport to home. SHELL spoke to patient to confirm address on file is correct. She reports she typically will use her [facility]ohnny for transport and uses their uber/lyft service. SW placed call to [facility] transport [phone]. Transport arranged for vegetable picker at [address] between 4:12-6:12pm. They will call the unit 15 minutes prior to their arrival . Ref # [id number]. chute worker updated patients bedside RN, who will update the patient. [facility] 09-15-2023 Miscellaneous Notes Social work follow up on discharge. SW notified by patients bedside RN patient needs assist with transport to home. SHELL spoke to patient to confirm address on file is correct. She reports she typically will use her [facility]ohn[facility] for transport and uses their uber/lyft service. SW placed call to [facility] transport [phone]. Transport arranged for vegetable picker at [address] between 4:12-6:12pm. They will call the unit 15 minutes prior to their arrival . Ref # [id number]. chute worker updated patients bedside RN, who will update the patient. Chart reviewed. Patient had paracentesis today with 1700 ml removed. Surgery is following patient for likely ileus -->no plans for intervention and recommend ADAT. Current discharge plan is home no needs once medically stable. Patient to ultrasound department for paracentesis. History, medications and allergies reviewed. Samuel Pastor PA-C in to speak with patient. Informed consent obtained. 1700 mL clear yellow colored fluid removed. Patient tolerated procedure well. Bandaid applied to site. Patient discharged to 7W Images from the original note were not included. Care Management Progress Note Patient remains on 7W with possible partial small bowel obstruction. Surgery s/o, +bm, diet advanced. Addiction Medicine following for polysubstance abuse. Discharge plan home independently with Significant Other. Discharge Milestones and Delays Expected Date/Time: 09/14/[address] discharge order Complete med reconciliation Case mgmt discharge readiness Clinical Stability Diagnsotic Workup Expected Discharge History Expected Date/Time Set By Reviewed At 09/14/2023 Meg Herrmann RN 09/12/2023 10:14 AM 09/12/2023 JOSE Collins 09/10/2023 5:32 AM 09/12/2023 JOSE Collins 09/09/2023 9:18 PM 09/12/2023 JOSE Collins 09/09/2023 8:44 PM Length of Stay (Days): 4 GMLOS: No GMLOS Documented Care Managment Initial Assessment Date: 09/12/2023 Patient Name: Carolina Bonilla : 1975 Patient Information Source of Information: Patient Cognition/Language: WFL - Within Functional Limits Permission given to speak with patient manufacturers representative/caregiver as indicated: Yes Confirmation of Payer with patient/family: Yes Payer Name: [employer] Medicaid : No Confirmation of Primary Care Physician: Confirmed PCP Name: Dr. Yoel GOMES Seen in last 2 years?: Yes Primary Caregiver: Self If assistance needed, confirmed caregiver ready, willing and able to care for patient at discharge: Confirmed with: Living Arrangements Current Residence: House Number of Floors 2 Number of Entry Steps: Bed/Bath Levels: Facility: Facility Name: Plan to Return: Yes Lives with: Spouse/significant other Support Systems: Spouse/significant other Activities of Daily Living Ambulation: Independent Bathing/Dressing: Independent Elimination/Continence/Toileting : Independent Feeding: Independent Who Assists with Activities of Daily Living: Instrumental Activities of Daily Living Prescription Coverage: Yes Pharmacy Used: Medication Management: Independent Transportation/Shopping: Assistance Provider Transportation Mode: Public transportation Needs Assistance with Transportation at Discharge: Yes Meal Preparation: Independent Laundry/Cleaning: Independent Finances/Bill Paying: Independent Communication: Independent Types of Care Services/Equipment Utilized Care Services: Dialysis Type: NA Durable Medical Equipment: Patient's Goal/Discharge Plan Patient expects to be discharged to: Home Discharge Planning Actions: Continue to follow Patient's Choice Rights and [employer] and Collaborative Relationships Disclosed as Indicated for Post-Acute Care: Yes Interdisciplinary Team Engagement: Social Work Referral for: Additional Information: Patient admitted to with abdominal pain, nausea and vomiting, hx: polysubstance abuse. [place] diet and Addiction Medicine consulted. Discharge plan home with Significant Other. Meg Herrmann RN Attempted to complete Initial assessment over the phone. Patient currently unavailable/off unit. Will try again as time allows. TCC will follow. documented in this encounter [facility] 09-15-2023 Note Discharge Summary Carolina Bonilla : 1975 ADMIT DATE: 09/09/2023 DISCHARGE DATE: 09/15/2023 PRIMARY CARE PHYSICIAN: No primary care provider on file. VISIT STATUS: Admission CODE STATUS: Full Code DISCHARGE DIAGNOSES: Principal Problem: Small bowel obstruction (HCC) Active Problems: Polysubstance use disorder HOSPITAL COURSE: Patient is 47-year-old with history of cirrhosis, GERD, substance abuse who comes into hospital with complaints of abdominal pain. Patient was seen in the ER and CT abdomen done which showed concern for partial small bowel obstruction. Consultation was placed to surgery. Initially she was kept NPO. Patient was seen with surgery and recommended starting clear liquid diet and no surgical intervention needed. Consultation was also placed ADM for substance abuse and to have signed off at this time. Interval History: Patient is seen and examined, comfortably laying on her bed without in any acute distress, she had paracentesis yesterday and removed 1.7 L of fluid She will be discharged home today No acute overnight changes, plan of care discussed with patient and staff Objective: Vitals: BP 118/55 Pulse 78 Temp 36.8 ?C (98.3 ?F) (Temporal) Resp 18 Ht 5' 2.01 (1.575 m) SpO2 98% Pulse Ox: SpO2 Av.5 % Min: 98 % Max: 99 % Supplemental O2: Pertinent physical exam: Physical Exam Cardiovascular: Rate and Rhythm: Normal rate and regular rhythm. Pulmonary: Effort: Pulmonary effort is normal. Breath sounds: Normal breath sounds. Abdominal: Palpations: Abdomen is soft, distended, mild tenderness noted Neurological: General: No focal deficit present. Mental Status: She is oriented to person, place, and time. Assessment Acute, acute on chronic, unstable/uncontrolled chronic problems: Abdominal pain Concern for partial small bowel obstruction Hypokalemia Metabolic acidosis Stable chronic problems affecting care, new non-acute diagnoses: Cirrhosis with ascites Chronic anemia History of substance abuse Chronic thrombocytopenia MDM/Plan Abdominal pain improving, continue to monitor No clear signs of small bowel obstruction, slowly advance diet, surgery following Advance diet as tolerated Paracentesis yesterday, removed 1.7 L fluids Seen by ADM and no intervention needed at this time Thrombocytopenia secondary to to cirrhosis SIGNIFICANT DIAGNOSTIC STUDIES: US guided abdominal paracentesis [[id number]] Collected: 09/14/231134 Order Status: Completed Updated: 09/14/231136 Narrative: [facility] 1975 [id number] Exam Date/Time: 09/14/2023 09:36 Procedure: US GUIDED ABDOMINAL PARACENTESIS Ordering Provider: TAN HARIKRISHNA Reason For Exam: Abdominal distention, pain PROCEDURE: Ultrasound-guided paracentesis PROCEDURAL PERSONNEL Advanced Practice Provider: Windy Pastor PA-C Attending physician, Samir Huerta M.D., was available in the department if needed. Indication: Ascites Additional clinical history: None Complications: No immediate complications. Impression: Ultrasound-guided paracentesis with drainage of 1.7 L of clear yellow fluid. PROCEDURE SUMMARY: - Limited abdominal ultrasound - Ultrasound-guided paracentesis - Additional procedure(s): None PROCEDURE DETAILS: Pre-procedure Consent: Informed consent for the procedure including risks, benefits and alternatives was obtained and time-out was performed prior to the procedure. Preparation: The site was prepared and draped using maximal sterile barrier technique including cutaneous antisepsis. Anesthesia/sedation None Limited abdominal ultrasound Limited abdominal ultrasound was performed. Findings: Moderate to large ascites. A safe window for paracentesis was identified. Paracentesis Local anesthesia was administered. The peritoneal cavity was accessed and fluid return confirmed position. Ascites was drained. Paracentesis access technique: Ultrasound to dacia a suitable access site Catheter placed: 5F Yueh Closure The catheter was removed. A sterile bandage was applied. Post-drainage ultrasound: Minimal ascites Additional Details Additional description of procedure: None Equipment details: None Specimens removed: Abdominal fluid Estimated blood loss (mL): Less than 10 Standardized report: [id number] Report Dictated on Electronically Signed By: Windy Pastor PA-C Electronically Signed Date/Time: 09/14/2023 11:36 AM EST US guided abdominal paracentesis [[id number]] Collected: 09/10/23853 Order Status: Completed Updated: 09/10/23854 Narrative: Patient Name: CAROLINA BONILLA : 1975 Exam Date/Time: 09/10/2023 08:29 Procedure: US GUIDED ABDOMINAL (more content not included)... [facility] 09-15-2023 History of Presen t illness Narrative Nutrition Assessment Type and Reason for Visit: Reassess Nutrition Recommendations/Plan: Pt with adequate intake on a Regular diet. Consider a 2gm Na restriction 2/2 recurrent ascites. Per MNT protocol and pt request, will initiate Ensure HP chocolate once daily. Pt's weight has remained stable, even after paracentesis yesterday. Will continue to monitor. Monitor weight, labs, I/Os, skin integrity and overall nutrition status. RD to follow up weekly. Malnutrition Assessment: Malnutrition Status: At risk for malnutrition (Comment) (Suspect PO intake is adequate and weight is stable even after paracentesis yesterday. At risk d/t cirrhosis, will continue to monitor.) Context: Acute Illness Findings of the 6 clinical characteristics of malnutrition: Energy Intake: Mild decrease in energy intake (Comment) (Per notes, pt with adequate intake this admit. Only %PO documented is 100% of breakfast today. Pt reports she is eating 50-100% of every meal which is lower than her normal amount) Weight Loss: No significant weight loss (Pt reports a UBW of ~200#. 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 She denies any aggravating/alleviating factors - states she had little PO intake that morning and denied N/V. Initial ED workup noted hypotension and labs of Ammonia 106 and Elevation of hepatic enzymes. Imaging notes large volumes ascites and c/f SBO. Pt was placed on lactulose, paracentesis ordered but was unsuccessful d/t insufficient fluid. General Surgery consulted and rec'd slow diet advancement, monitor ascites for paracentesis and hold off on NG tube for now. ADM evaluated but signed off (UDS negative, no withdrawl sx). Pt tolerated CLD and FLD diet with BM 09/11 and resolution of abdominal pain. Diet advanced to Regular and Gen Surg s/o 09/12. Pt c/o abdominal distention 09/13, s/p paracentesis with 1700 mL fluid removed 09/14. DC plan is home when stable. Remains on a Regular diet. The only %PO is 100% of breakfast today. RD visited pt this AM. Per notes, pt has been eating well however pt states she has not been eating well here d/t a poor appetite. She reports she is eating at least half of my meals, but not like I normally would . At home she reports she normally eats small amounts of food frequently, as opposed to 3 larger meals d/t frequent bloating. She denies feeling bloated today but was prior to the paracentesis. She confirms her UBW is ~200#. She had a bed weight of 205.6# on 09/[address] obtained a bed weight of 209.9# (even though pt s/p paracentesis yesterday). Pt reports she has never tried Ensure but is interested in receiving them here. Estimated Daily Nutrient Needs: Energy Requirements Based On: Kcal/kg Weight Used for Energy Requirements: [place] Weight for Energy Calculation (kg): 50 kg Total Energy Requirements (kcals/day): 27-32 kcal/kg = 3844-0150 kcal/day Weight Used for Protein Requirements: [place] Weight in Kg Used for Protein Requirements: 50 kg Estimated Total Protein (g/day): 1.2-1.4 g/kg = 60-70 g/day Estimated Daily Total Fluid (ml/day): per MD Nutrition Related Findings: Danilo = 20, GI = bm 09/14, I/O+, Labs: Pot 3.4, BG 136/145/128, no A1c, Meds: Lactulose Wound Type: None Current Nutrition Therapies: Adult diet Regular Current Oral Intake Average Meal Intake: 76-100% Average Supplements Intake: None Ordered Anthropometric Measures: Height: 157.5 cm (5' 2.01 ) Current Body Weight: 95.2 kg (209 lb 14.4 oz) (09/15 bed) Admission Body Weight: (No weight on admit) Usual Body Weight: 90.7 kg (200 lb) (stated) % Weight Change (Calculated): 5 [place] Body Weight (lbs) (Calculated): 110 lbs [place] Body Weight (Kg) (Calculated): 50 kg % [place] Body Weight (Calculated): 190.8 % BMI (kg/m2) (Calculated): 38.4 Weight Adjustment For: No Adjustment Nutrition Interventions: Nutrition Education/Counseling: No recommendation at this time Coordination of Nutrition Care: Continue to monitor while inpatient Goals: Previous Goal Met: Progressing toward Goal(s) Goals: PO intake 75% or greater, prior to discharge Nutrition Monitoring and Evaluation: Behavioral-Environmental Outcomes: None Identified Food/Nutrient Intake Outcomes: Food and Nutrient Intake, Supplement Intake Physical Signs/Symptoms Outcomes: Biochemical Data, Nutrition Focused Physical Findings, Skin, Weight, GI Status, Fluid Status or Edema, Hemodynamic Status, Meal Time Behavior Discharge Planning: Continue current diet Latha Lester RD Contact: [phone] Images from the original note were not included. Hospitalist Progress Note 09/15/2023 Subjective: Admit Date: 09/09/2023 PCP: No primary care provider on file. Room#: W7726/[id number] A Brief Hospital course: Patient is 47-year-old with history of cirrhosis, GERD, substance abuse who comes into hospital with complaints of abdominal pain. Patient was seen in the ER and CT abdomen done which showed concern for partial small bowel obstruction. Consultation was placed to surgery. Initially she was kept NPO. Patient was seen with surgery and recommended starting clear liquid diet and no surgical intervention needed. Consultation was also placed ADM for substance abuse and to have signed off at this time. Interval History: Patient is seen and examined, comfortably laying on her bed without in any acute distress, she had paracentesis yesterday and removed 1.7 L of fluid She will be discharged home today No acute overnight changes, plan of care discussed with patient and staff Adult diet Regular 24HR INTAKE/OUTPUT: No intake or output data in the 24 hours ending 09/15/23 0822 LABS: CBC: Recent Labs 09/13/23 0126 09/14/23 0613 09/15/23 0119 WBC 4.4 4.6 4.5 RBC 3.60* 3.45* 3.51* HGB 8.1* 7.9* 8.0* HCT 26.1* 24.9* 25.3* MCV 72.4* 72.1* 72.0* RDW 21.1* 21.3* 21.7* PLT 56* 59* 55* BMP: Recent Labs 09/13/23 0126 09/14/23 0206 09/15/23 0119 NA 137 136 136 K 3.9 3.7 3.4* CL 113* 110* 107 CO2 21* 21* 23 BUN 2* 4* 4* CREATININE 0.68 0.62 0.71 GLUCOSE 136* 145* 128* CALCIUM 8.3* 8.2* 8.3* ANIONGAP 4 5 5 LIVER PROFILE: No results for input(s): AST , ALT , BILITOT , ALKPHOS , PROT in the last 72 hours. No lab exists for component: LABALBU PT/INR: No results for input(s): PROTIME , INR in the last 72 hours. CARDIAC ENZYMES: No results for input(s): TROPONINI in the last 72 hours. Procalcitonin: No results found for: PROCAL Medications: Scheduled desvenlafaxine, 100 mg, Oral, Daily doxepin, 10 mg, Oral, Nightly gabapentin, 100 mg, Oral, BID influenza, 0.5 mL, IntraMUSCular, Once lactulose, 20 g, Oral, TID Or lactulose (Chronulac) 200 g in sterile water 1,000 mL enema, 1 enema, Rectal, TID [id number]-[id number], , Topical, TID pantoprazole (ProtoNix) 40 mg in sodium chloride (PF) 0.9 % 10 mL injection, 40 mg, IntraVENous, qAM AC sodium bicarbonate, 650 mg, Oral, BID traZODone, 100 mg, Oral, Nightly PRN PRN medications: acetaminophen OR acetaminophen, cloNIDine, dicyclomine, melatonin, morphine sulfate, naloxone, nicotine, nicotine polacrilex, ondansetron ODT OR ondansetron, sodium chloride Objective: Vitals: BP 118/55 Pulse 78 Temp 36.8 C (98.3 F) (Temporal) Resp 18 Ht 5' 2.01 (1.575 m) SpO2 98% Pulse Ox: SpO2 Av.5 % Min: 98 % Max: 99 % Supplemental O2: Pertinent physical exam: Physical Exam Cardiovascular: Rate and Rhythm: Normal rate and regular rhythm. Pulmonary: Effort: Pulmonary effort is normal. Breath sounds: Normal breath sounds. Abdominal: Palpations: Abdomen is soft, distended, mild tenderness noted Neurological: General: No focal deficit present. Mental Status: She is oriented to person, place, and time. Assessment Acute, acute on chronic, unstable/uncontrolled chronic problems: Abdominal pain Concern for partial small bowel obstruction Hypokalemia Metabolic acidosis Stable chronic problems affecting care, new non-acute diagnoses: Cirrhosis with ascites Chronic anemia History of substance abuse Chronic thrombocytopenia MDM/Plan Abdominal pain improving, continue to monitor No clear signs of small bowel obstruction, slowly advance diet, surgery following Advance diet as tolerated Paracentesis yesterday, removed 1.7 L fluids Seen by ADM and no intervention needed at this time Thrombocytopenia secondary to to cirrhosis - DVT prophylaxis: encourage ambulation Total time spent (which include face to face and non face to face encounters) : 43 minutes Toxic drug monitoring/narrow therapeutic index drug monitoring : # Drug name : # Route administered : # Method of monitoring : Advance Directive: Full Code Anticipated Discharge - Date -TBD - Location - Home - Pending the following -clinical improvement Extended Emergency Contact Information Primary Emergency Contact: John Bonilla Relation: Spouse Secondary Emergency Contact: Vannesa Bonilla Mobile Relation: Daughter Saima Tan MD Division of Hospitalist Medicine [facility] Images from the original note were not included. Hospitalist Progress Note 09/14/2023 Subjective: Admit Date: 09/09/2023 PCP: No primary care provider on file. Room#: [facility] A Brief Hospital course: Patient is 47-year-old with history of cirrhosis, GERD, substance abuse who comes into hospital with complaints of abdominal pain. Patient was seen in the ER and CT abdomen done which showed concern for partial small bowel obstruction. Consultation was placed to surgery. Initially she was kept NPO. Patient was seen with surgery and recommended starting clear liquid diet and no surgical intervention needed. Consultation was also placed ADM for substance abuse and to have signed off at this time. Interval History: Patient is seen and examined, resting comfortably on her bed, not in acute distress awaiting ultrasound guided paracentesis No acute overnight changes, plan of care discussed with patient and staff Adult diet Regular 24HR INTAKE/OUTPUT: No intake or output data in the 24 hours ending 09/14/23 0958 LABS: CBC: Recent Labs 09/12/23 0112 09/13/23 0126 09/14/23 0613 WBC 5.1 4.4 4.6 RBC 3.50* 3.60* 3.45* HGB 7.9* 8.1* 7.9* HCT 25.0* 26.1* 24.9* MCV 71.5* 72.4* 72.1* RDW 21.1* 21.1* 21.3* PLT 58* 56* 59* BMP: Recent Labs 09/12/23 0112 09/13/23 0126 09/14/23 0206 NA 136 137 136 K 3.9 3.9 3.7 CL 111* 113* 110* CO2 19* 21* 21* BUN 3* 2* 4* CREATININE 0.64 0.68 0.62 GLUCOSE 110* 136* 145* CALCIUM 8.7 8.3* 8.2* ANIONGAP 6 4 5 LIVER PROFILE: Recent Labs 09/12/23 0112 AST 106* ALT 54* BILITOT 1.9* ALKPHOS 112 PROT 6.1* PT/INR: No results for input(s): PROTIME , INR in the last 72 hours. CARDIAC ENZYMES: No results for input(s): TROPONINI in the last 72 hours. Procalcitonin: No results found for: PROCAL Medications: Scheduled desvenlafaxine, 100 mg, Oral, Daily doxepin, 10 mg, Oral, Nightly gabapentin, 100 mg, Oral, BID influenza, 0.5 mL, IntraMUSCular, Once lactulose, 20 g, Oral, TID Or lactulose (Chronulac) 200 g in sterile water 1,000 mL enema, 1 enema, Rectal, TID iawdvxbx-dadcebrvgo-gzkrulniy, , Topical, TID pantoprazole (ProtoNix) 40 mg in sodium chloride (PF) 0.9 % 10 mL injection, 40 mg, IntraVENous, qAM AC sodium bicarbonate, 650 mg, Oral, BID traZODone, 100 mg, Oral, Nightly PRN PRN medications: acetaminophen OR acetaminophen, cloNIDine, dicyclomine, melatonin, morphine sulfate, naloxone, nicotine, nicotine polacrilex, ondansetron ODT OR ondansetron, sodium chloride Objective: Vitals: BP 118/55 Pulse 78 Temp 36.8 C (98.3 F) (Temporal) Resp 18 Ht 5' 2.01 (1.575 m) SpO2 98% Pulse Ox: SpO2 Av.5 % Min: 98 % Max: 99 % Supplemental O2: Pertinent physical exam: Physical Exam Cardiovascular: Rate and Rhythm: Normal rate and regular rhythm. Pulmonary: Effort: Pulmonary effort is normal. Breath sounds: Normal breath sounds. Abdominal: Palpations: Abdomen is soft, distended, mild tenderness noted Neurological: General: No focal deficit present. Mental Status: She is oriented to person, place, and time. Assessment Acute, acute on chronic, unstable/uncontrolled chronic problems: Abdominal pain Concern for partial small bowel obstruction Hypokalemia Metabolic acidosis Stable chronic problems affecting care, new non-acute diagnoses: Cirrhosis with ascites Chronic anemia History of substance abuse Chronic thrombocytopenia MDM/Plan Abdominal pain improving, continue to monitor No clear signs of small bowel obstruction, slowly advance diet, surgery following Advance diet as tolerated Paracentesis ordered Seen by ADM and no intervention needed at this time Thrombocytopenia secondary to to cirrhosis Awaiting ultrasound-guided paracentesis - DVT prophylaxis: encourage ambulation Total time spent (which include face to face and non face to face encounters) : 41 minutes Toxic drug monitoring/narrow therapeutic index drug monitoring : # Drug name : # Route administered : # Method of monitoring : Advance Directive: Full Code Anticipated Discharge - Date -TBD - Location - Home - Pending the following -clinical improvement Extended Emergency Contact Information Primary Emergency Contact: John Bonilla Relation: Spouse Secondary Emergency Contact: Vannesa Bonilla Mobile Relation: Daughter Saima Tan MD Division of Hospitalist Medicine [facility] Images from the original note were not included. Hospitalist Progress Note 09/13/2023 Subjective: Admit Date: 09/09/2023 PCP: No primary care provider on file. Room#: W7726/W72 A Brief Hospital course: Patient is 47-year-old with history of cirrhosis, GERD, substance abuse who comes into hospital with complaints of abdominal pain. Patient was seen in the ER and CT abdomen done which showed concern for partial small bowel obstruction. Consultation was placed to surgery. Initially she was kept NPO. Patient was seen with surgery and recommended starting clear liquid diet and no surgical intervention needed. Consultation was also placed ADM for substance abuse and to have signed off at this time. 09/12: Patient alert, chart reviewed, wanted to eat more, feeling better, denies any nausea or vomiting. Had BM today. Interval History: Patient is seen and examined, laying on her bed, complaining of abdominal distention, pain, will order ultrasound guided paracentesis No acute overnight changes, plan of care discussed with patient and staff Adult diet Regular 24HR INTAKE/OUTPUT: No intake or output data in the 24 hours ending 09/13/23 0902 LABS: CBC: Recent Labs 09/11/23 0030 09/12/23 0112 09/13/23 0126 WBC 7.9 5.1 4.4 RBC 3.80 3.50* 3.60* HGB 8.6* 7.9* 8.1* HCT 27.4* 25.0* 26.1* MCV 72.2* 71.5* 72.4* RDW 21.6* 21.1* 21.1* PLT 61* 58* 56* BMP: Recent Labs 09/11/23 0030 09/12/23 0112 09/13/23 0126 NA 137 136 137 K 3.4* 3.9 3.9 CL 111* 111* 113* CO2 17* 19* 21* BUN 8 3* 2* CREATININE 0.73 0.64 0.68 GLUCOSE 76 110* 136* CALCIUM 8.5 8.7 8.3* ANIONGAP 9 6 4 LIVER PROFILE: Recent Labs 09/11/23 0030 09/12/23 0112 AST 98* 106* ALT 52* 54* BILITOT 2.3* 1.9* ALKPHOS 107 112 PROT 6.8 6.1* PT/INR: Recent Labs 09/10/23 1218 PROTIME 17.0* INR 1.7* CARDIAC ENZYMES: No results for input(s): TROPONINI in the last 72 hours. Procalcitonin: No results found for: PROCAL Medications: Scheduled desvenlafaxine, 100 mg, Oral, Daily doxepin, 10 mg, Oral, Nightly gabapentin, 100 mg, Oral, BID influenza, 0.5 mL, IntraMUSCular, Once lactulose, 20 g, Oral, TID Or lactulose (Chronulac) 200 g in sterile water 1,000 mL enema, 1 enema, Rectal, TID pantoprazole (ProtoNix) 40 mg in sodium chloride (PF) 0.9 % 10 mL injection, 40 mg, IntraVENous, qAM AC sodium bicarbonate, 650 mg, Oral, BID traZODone, 100 mg, Oral, Nightly PRN PRN medications: acetaminophen OR acetaminophen, cloNIDine, dicyclomine, melatonin, morphine sulfate, nicotine, nicotine polacrilex, ondansetron ODT OR ondansetron, sodium chloride Objective: Vitals: BP 118/55 Pulse 78 Temp 36.8 C (98.3 F) (Temporal) Resp 18 Ht 5' 2.01 (1.575 m) SpO2 98% Pulse Ox: SpO2 Av.5 % Min: 98 % Max: 99 % Supplemental O2: Pertinent physical exam: Physical Exam Cardiovascular: Rate and Rhythm: Normal rate and regular rhythm. Pulmonary: Effort: Pulmonary effort is normal. Breath sounds: Normal breath sounds. Abdominal: Palpations: Abdomen is soft, distended, mild tenderness noted Neurological: General: No focal deficit present. Mental Status: She is oriented to person, place, and time. Assessment Acute, acute on chronic, unstable/uncontrolled chronic problems: Abdominal pain Concern for partial small bowel obstruction Hypokalemia Metabolic acidosis Stable chronic problems affecting care, new non-acute diagnoses: Cirrhosis with ascites Chronic anemia History of substance abuse Chronic thrombocytopenia MDM/Plan Abdominal pain improving, continue to monitor No clear signs of small bowel obstruction, slowly advance diet, surgery following Advance diet as tolerated Paracentesis ordered Seen by ADM and no intervention needed at this time Thrombocytopenia secondary to to cirrhosis - DVT prophylaxis: encourage ambulation Total time spent (which include face to face and non face to face encounters) : 40 minutes Toxic drug monitoring/narrow therapeutic index drug monitoring : # Drug name : # Route administered : # Method of monitoring : Advance Directive: Full Code Anticipated Discharge - Date -TBD - Location - Home - Pending the following -clinical improvement Extended Emergency Contact Information Primary Emergency Contact: John Bonilla Relation: Spouse Secondary Emergency Contact: Vannesa Bonilla Mobile Relation: Daughter Saima Tan MD Division of Hospitalist Medicine [facility] Images from the original note were not included. Department of General Surgery Daily Progress Note ADMIT DATE: 09/09/2023 TODAY'S DATE: 09/12/2023 SUBJECTIVE: No acute events overnight. Patient states this morning she is not having any more abdominal pain. She states she is having flatus and bowel movements. She states she is hungry and is asking for diet. Seen resting comfortably in bed. ROS: Noted above unless otherwise mentioned OBJECTIVE: VITALS: Temp: [36.7 C (98.1 F)-36.8 C (98.3 F)] 36.8 C (98.3 F) Heart Rate: [74-78] 78 Resp: [17-18] 18 BP: (93-118)/(55-62) 118/55 INTAKE/OUTPUT: No intake or output data in the 24 hours ending 09/12/231652 No intake/output data recorded. No intake/output data recorded. PHYSICAL EXAM: Gen: NAD, A&Ox3, pain well controlled Heart: RRR, well perfused Lungs: symmetric chest rise, normal work of breathing, breath sounds b/l Abd: soft, non tender, non distended. Non rigid. Ext: no c/c/e no gross deformities Skin: warm, well perfused, no obvious rashes, cellulitis or gross discoloration. LABS CBC: Auto WBC Date Value Ref Range Status 09/12/2023 5.1 3.6 - 10.7 10*3/uL Final 09/11/2023 7.9 3.6 - 10.7 10*3/uL Final 09/10/2023 8.2 3.6 - 10.7 10*3/uL Final Hemoglobin Date Value Ref Range Status 09/12/2023 7.9 (L) 11.7 - 16.0 g/dL Final 09/11/2023 8.6 (L) 11.7 - 16.0 g/dL Final 09/10/2023 9.1 (L) 11.7 - 16.0 g/dL Final Platelets Date Value Ref Range Status 09/12/2023 58 (L) 140 - 440 10*3/uL Final Comment: I-Thrombocytopenia 09/11/2023 61 (L) 140 - 440 10*3/uL Final Comment: I-Thrombocytopenia 09/10/2023 79 (L) 140 - 440 10*3/uL Final BMP: SODIUM Date Value Ref Range Status 09/12/2023 136 135 - 145 mmol/L Final 09/11/2023 137 135 - 145 mmol/L Final 09/10/2023 138 135 - 145 mmol/L Final POTASSIUM Date Value Ref Range Status 09/12/2023 3.9 3.5 - 5.1 mmol/L Final 09/11/2023 3.4 (L) 3.5 - 5.1 mmol/L Final 09/10/2023 4.0 3.5 - 5.1 mmol/L Final CHLORIDE Date Value Ref Range Status 09/12/2023 111 (H) 98 - 107 mmol/L Final 09/11/2023 111 (H) 98 - 107 mmol/L Final 09/10/2023 113 (H) 98 - 107 mmol/L Final CARBON DIOXIDE Date Value Ref Range Status 09/12/2023 19 (L) 22 - 30 mmol/L Final 09/11/2023 17 (L) 22 - 30 mmol/L Final 09/10/2023 21 (L) 22 - 30 mmol/L Final UREA NITROGEN Date Value Ref Range Status 09/12/2023 3 (L) 7 - 17 mg/dL Final 09/11/2023 8 7 - 17 mg/dL Final 09/10/2023 7 7 - 17 mg/dL Final CREATININE Date Value Ref Range Status 09/12/2023 0.64 0.52 - 1.04 mg/dL Final 09/11/2023 0.73 0.52 - 1.04 mg/dL Final 09/10/2023 0.81 0.52 - 1.04 mg/dL Final Hepatic: AST (SGOT) Date Value Ref Range Status 09/12/2023 106 (H) 15 - 46 U/L Final 09/11/2023 98 (H) 15 - 46 U/L Final 09/10/2023 103 (H) 15 - 46 U/L Final ALT Date Value Ref Range Status 09/12/2023 54 (H) 0 - 34 U/L Final 09/11/2023 52 (H) 0 - 34 U/L Final 09/10/2023 54 (H) 0 - 34 U/L Final ALBUMIN Date Value Ref Range Status 09/12/2023 2.9 (L) 3.5 - 5.0 g/dL Final 09/11/2023 3.3 (L) 3.5 - 5.0 g/dL Final 09/10/2023 2.8 (L) 3.5 - 5.0 g/dL Final BILIRUBIN, TOTAL Date Value Ref Range Status 09/12/2023 1.9 (H) 0.2 - 1.3 mg/dL Final 09/11/2023 2.3 (H) 0.2 - 1.3 mg/dL Final 09/10/2023 2.5 (H) 0.2 - 1.3 mg/dL Final BILIRUBIN, DIRECT Date Value Ref Range Status 09/11/2023 0.0 0.0 - 0.3 mg/dL Final 09/09/2023 0.0 0.0 - 0.3 mg/dL Final ALKALINE PHOSPHATASE Date Value Ref Range Status 09/12/2023 112 38 - 126 U/L Final 09/11/2023 107 38 - 126 U/L Final 09/10/2023 146 (H) 38 - 126 U/L Final Current Inpatient Medications Scheduled Meds:desvenlafaxine, 100 mg, Oral, Daily doxepin, 10 mg, Oral, Nightly gabapentin, 100 mg, Oral, BID influenza, 0.5 mL, IntraMUSCular, Once lactulose, 20 g, Oral, TID Or lactulose (Chronulac) 200 g in sterile water 1,000 mL enema, 1 enema, Rectal, TID pantoprazole (ProtoNix) 40 mg in sodium chloride (PF) 0.9 % 10 mL injection, 40 mg, IntraVENous, qAM AC sodium bicarbonate, 650 mg, Oral, BID traZODone, 100 mg, Oral, Nightly Continuous Infusions: PRN Meds:PRN medications: acetaminophen OR acetaminophen, cloNIDine, dicyclomine, melatonin, morphine sulfate, nicotine, nicotine polacrilex, ondansetron ODT OR ondansetron ASSESSMENT AND PLAN: This is a 47 y.o. female with cirrhosis who presents with concern for partial small bowel obstruction -No acute surgical intervention, now having bowel movements and endorsing improved abdominal pain -Advance diet as tolerated -Surgery to sign off at this time, please page with questions Patient discussed with attending, Dr. Yun. Kate Harley MD General Surgery PGY-1 09/12/23 4:53 PM Pager # [phone] This note may have been dictated using [employer] Medical Practice Edition 2.6 and/or [employer] Voice Recognition Feature. The document was proofread; however, unrecognized voice recognition aluminum sheet cutter errors may be present. Associated attestation - Karen Yun MD - 09/13/2023 2:49 PM EST ~~~~~~~~~~~~~~~~~~~~~~~~~~~~~~~~ ~~~~~~~~~~~~~~~~~~~~~~~~~~~~~ ATTENDING ADDENDUM Patient Active Problem List Diagnosis Small bowel obstruction (HCC) Polysubstance use disorder Retroperitoneal bleed Physical deconditioning Myofascial pain Major depression Lumbar strain Lumbago Insomnia Chronic hepatitis C without hepatic coma (CMS/HCC) (HCC) GERD (gastroesophageal reflux disease) I independently saw the above patient and reviewed the recent events, imaging, labs, vital signs; I performed a physical exam and ROS on the same date of service as above. My findings agree with the above note except for any details corrected below. A complete review of systems was obtained and is negative except as stated in HPI. 47F with history of cirrhosis pw ileus versus partial small bowel obstruction + bowel fnx Patient is hungry Denies abdominal pain Problem list: Ileus vs partial small bowel obstruction -likely ileus Management: Advance diet as tolerated Bowel regimen Appreciate excellent care by medical team No acute surgical invention Thank you for this consultation and allowing us to participate in the management of your patient. Please contact me for any concerns or questions regarding the recommendations above. Level of Medical Decision Making: risk of morbidity from additional diagnostic testing or treatment due to ileus []High [x]Moderate []Low Complexity: Acute illness with systemic symptoms (MOD) Personally Reviewed/Independently interpreted patient's: [x]Epic notes [x]Radiology studies [x]Labs []EKG []Ordering tests []Other Discussed/ With: [x]Patient/Family []RN []Consultants []SW/TCC []Other I spent total time of 37 minutes reviewing previous notes, test results, and face to face with Carolina Bonilla discussing the diagnosis and importance of compliance with the treatment plan as well as documenting on the day of the visit. Time was spent, Reviewing medical record including recent tests and results Ordering prescription medications/tests and procedures Communicating results to the patient/family/caregiver Counseling/educating the patient/family/caregiver Documenting clinical information the patient's electronic record Coordination of care for the patient Performing a medical appropriate exam and evaluation Karen Yun MD, FACS Division of Trauma Department of Surgery [facility] ~~~~~~~~~~~~~~~~~~~~~~~~~~~~~~~~ ~~~~~~~~~~~~~~~~~~~~~~~~~~~~~ This note may have been dictated using [employer] Medical Practice Edition 2.6 and/or [employer] Voice Recognition Feature. The document was proofread; however, unrecognized voice recognition aluminum sheet cutter errors may be present. [place] ADMISSION MEDICATION RECONCILIATION Date: 09/12/23 Room:[facility] A Patient Name: Carolina Bonilla Allergies: Aspirin, Bupropion, Codeine, and Prednisone Age: 47 y.o. Sex: female Note: New information has been obtained regarding the patient s medications. The medication reconciliation has been updated to reflect this. Please consider making these changes/additions if appropriate: Recommendations: *FYI* - did not discuss home meds with patient d/t disorientation. Updated home med list based on last fill dates from patient's [facility]. Home medications to restart if there is not a current contraindication: Buspar 10mg QID PRN (last filled 08/31 #60) *FYI* - patient filling Melatonin 5mg at bedtime prior to admission (last filled 08/31 #30) & currently ordered 3mg at bedtime PRN as an inpatient Remeron ODT 15mg at bedtime (last filled 08/31 #30) Topamax 50mg qday (last filled 08/31 #30) Please page/call with questions. Date: 09/12/23 Time: 4:15 PM 09/12/2023 4:18 PM Kaylin Camarillo PharmMelodie Electronically signed by Kyalin Camarillo [facility] at 09/12/2023 4:18 PM EST Nutrition Assessment Type and Reason for Visit: Initial, RD Nutrition Re-Screen/LOS (NPO/Clear liquid >3 days with cirrhosis) Nutrition Recommendations/Plan: Recommend advance diet as tolerated. Consider a 2 gm Na diet restriction given ascites. Pt is tolerating full liquids with no nausea or vomiting. Pt declined ONS at this time. Weight is stable ~200#. Monitor weight, labs, I/Os, skin integrity and overall nutrition status. RD to follow up weekly. Malnutrition Assessment: Malnutrition Status: At risk for malnutrition (Comment) (Pt tolerating a full liquid diet without issues. At risk for malnutrition d/t cirrhosis. Will continue to monitor criteria) Context: Acute Illness Findings of the 6 clinical characteristics of malnutrition: Energy Intake: Mild decrease in energy intake (Comment) (Pt presented on 09/10 AM and was NPO then advanced to CLD that day. Was advanced to FLD 09/11 which remains her current. She is tolerating FLD with no n/v) Weight Loss: No significant weight loss (Pt reports a UBW of 200# and RD obtained a bed weight of 205.6#. Noted pt with ascites, however insufficient amount for paracentesis upon admit) Body Fat Loss: No significant body fat loss Muscle Mass Loss: No significant muscle mass loss Fluid Accumulation: Mild Ascites Yarn Salvager Strength: Not Performed Nutrition Assessment: 47yo F with PMHx cirrhosis d/t Hep C, GERD, current smoker and former methamphetamine smoker with use 1 month ago who presented with acute worsening of her chronic abdominal pain that began when she woke up on 09/10. She denies any aggravating/alleviating factors - states she had little PO intake that morning and denied N/V. Initial ED workup noted hypotension and labs of Ammonia 106 and Elevation of hepatic enzymes. Imaging notes large volumes ascites, possible proximal small bowel dilation concerning for SBO. Pt states she had similar symptoms 2 weeks ago and had undergone a paracentesis at that time which helped her pain. Pt was placed on lactulose, paracentesis ordered but was unsuccessful d/t insufficient fluid. General Surgery consulted and rec'd slow diet advancement, monitor ascites for paracentesis and hold off on NG tube for now. ADM was consulted for substance abuse--pt's UDS was negative on admission and she is not having any major drug withdrawal besides from nicotine--ADM signed off. Pt's abdominal pain improving, tolerating liquid diet with no n/v and had a BM 09/11. RD visited pt this AM. Pt was minimally interactive with RD, falling in and out of sleep. She reports she is tolerating a liquid diet with no nausea or vomiting. She declined Ensure or ONS. She reports her UBW is ~200# and RD obtained a bed weight of 205.6#. She visually appears well nourished. She denies special diets at home or food allergies. Denied needs from RD. Estimated Daily Nutrient Needs: Energy Requirements Based On: Kcal/kg Weight Used for Energy Requirements: [place] Weight for Energy Calculation (kg): 50 kg Total Energy Requirements (kcals/day): 27-32 kcal/kg = 8401-6442 kcal/day Weight Used for Protein Requirements: [place] Weight in Kg Used for Protein Requirements: 50 kg Estimated Total Protein (g/day): 1.2-1.4 g/kg = 60-70 g/day Estimated Daily Total Fluid (ml/day): per MD Nutrition Related Findings: Danilo = 23, GI = bm 09/11, abdomen distended, I/O+, Labs: AST 106, ALT 54, Ammonia 42, Bili 1.9, Meds: Lactulose Wound Type: None Current Nutrition Therapies: Adult diet Full liquid Current Oral Intake Average Meal Intake: Unable to assess (Noted to be tolerating a full liquid diet with no issues) Average Supplements Intake: None Ordered Anthropometric Measures: Height: 157.5 cm (5' 2.01 ) Current Body Weight: 93.3 kg (205 lb 9.6 oz) (09/12 bed) Admission Body Weight: (No weight on admission) Usual Body Weight: 90.7 kg (200 lb) (200# stated. Very limited per chart: 12/02/22 208#, 09/29/22 209#, 05/26/22 198#) % Weight Change (Calculated): 2.8 [place] Body Weight (lbs) (Calculated): 110 lbs [place] Body Weight (Kg) (Calculated): 50 kg % [place] Body Weight (Calculated): 186.9 % BMI (kg/m2) (Calculated): 37.6 Weight Adjustment For: No Adjustment Nutrition Diagnosis: In context of chronic illness related to altered GI function, pain as evidenced by localized or generalized fluid accumulation Nutrition Interventions: Nutrition Education/Counseling: No recommendation at this time Coordination of Nutrition Care: Continue to monitor while inpatient Goals: Goals: PO intake 75% or greater, by next RD assessment Nutrition Monitoring and Evaluation: Behavioral-Environmental Outcomes: None Identified Food/Nutrient Intake Outcomes: Food and Nutrient Intake Physical Signs/Symptoms Outcomes: Biochemical Data, Nutrition Focused Physical Findings, Skin, Weight, GI Status, Fluid Status or Edema, Hemodynamic Status, Meal Time Behavior Discharge Planning: Too soon to determine Latha Lester RD Contact: [phone] Images from the original note were not included. Hospitalist Progress Note 09/12/2023 Subjective: Admit Date: 09/09/2023 PCP: No primary care provider on file. Room#: W7726/W7-530 A Brief Hospital course: Patient is 47-year-old with history of cirrhosis, GERD, substance abuse who comes into hospital with complaints of abdominal pain. Patient was seen in the ER and CT abdomen done which showed concern for partial small bowel obstruction. Consultation was placed to surgery. Initially she was kept NPO. Patient was seen with surgery and recommended starting clear liquid diet and no surgical intervention needed. Consultation was also placed ADM for substance abuse and to have signed off at this time. 09/12: Patient alert, chart reviewed, wanted to eat more, feeling better, denies any nausea or vomiting. Had BM today. Interval History: Patient is seen and examined, resting comfortably on her bed, appears to be not in acute distress No acute overnight changes, plan of care discussed with patient and staff Adult diet Full liquid 24HR INTAKE/OUTPUT: No intake or output data in the 24 hours ending 09/12/23 0904 LABS: CBC: Recent Labs 09/10/23 0609/11/23 0030 09/12/23 0112 WBC 8.2 7.9 5.1 RBC 4.05 3.80 3.50* HGB 9.1* 8.6* 7.9* HCT 28.8* 27.4* 25.0* MCV 71.2* 72.2* 71.5* RDW 21.4* 21.6* 21.1* PLT 79* 61* 58* BMP: Recent Labs 09/10/23 0622 09/11/23 0030 09/12/23 0112 NA 138 137 136 K 4.0 3.4* 3.9 CL 113* 111* 111* CO2 21* 17* 19* BUN 7 8 3* CREATININE 0.81 0.73 0.64 GLUCOSE 90 76 110* CALCIUM 8.6 8.5 8.7 ANIONGAP 4 9 6 LIVER PROFILE: Recent Labs 09/10/23 0622 09/11/23 0030 09/12/23 0112 AST 103* 98* 106* ALT 54* 52* 54* BILITOT 2.5* 2.3* 1.9* ALKPHOS 146* 107 112 PROT 6.4 6.8 6.1* PT/INR: Recent Labs 09/10/23 1218 PROTIME 17.0* INR 1.7* CARDIAC ENZYMES: Recent Labs 09/09/23 1848 09/09/23 2205 09/10/23 0105 TROPONINI <0.012 <0.012 <0.012 Procalcitonin: No results found for: PROCAL Medications: Scheduled desvenlafaxine, 100 mg, Oral, Daily doxepin, 10 mg, Oral, Nightly gabapentin, 100 mg, Oral, BID influenza, 0.5 mL, IntraMUSCular, Once lactulose, 20 g, Oral, TID Or lactulose (Chronulac) 200 g in sterile water 1,000 mL enema, 1 enema, Rectal, TID pantoprazole (ProtoNix) 40 mg in sodium chloride (PF) 0.9 % 10 mL injection, 40 mg, IntraVENous, qAM AC sodium bicarbonate, 650 mg, Oral, BID traZODone, 100 mg, Oral, Nightly PRN PRN medications: acetaminophen OR acetaminophen, cloNIDine, dicyclomine, melatonin, morphine sulfate, nicotine, nicotine polacrilex, ondansetron ODT OR ondansetron Objective: Vitals: BP 118/55 Pulse 78 Temp 36.8 C (98.3 F) (Temporal) Resp 18 Ht 5' 2.01 (1.575 m) SpO2 98% Pulse Ox: SpO2 Av.5 % Min: 98 % Max: 99 % Supplemental O2: Pertinent physical exam: Physical Exam Cardiovascular: Rate and Rhythm: Normal rate and regular rhythm. Pulmonary: Effort: Pulmonary effort is normal. Breath sounds: Normal breath sounds. Abdominal: Palpations: Abdomen is soft. Neurological: General: No focal deficit present. Mental Status: She is oriented to person, place, and time. Assessment Acute, acute on chronic, unstable/uncontrolled chronic problems: Abdominal pain Concern for partial small bowel obstruction Hypokalemia Metabolic acidosis Stable chronic problems affecting care, new non-acute diagnoses: Cirrhosis with ascites Chronic anemia History of substance abuse Chronic thrombocytopenia MDM/Plan Abdominal pain improving, continue to monitor No clear signs of small bowel obstruction, slowly advance diet, surgery following Advance diet as tolerated Seen by ADM and no intervention needed at this time Thrombocytopenia secondary to to cirrhosis - DVT prophylaxis: encourage ambulation Total time spent (which include face to face and non face to face encounters) : 42 minutes Toxic drug monitoring/narrow therapeutic index drug monitoring : # Drug name : # Route administered : # Method of monitoring : Advance Directive: Full Code Anticipated Discharge - Date -TBD - Location - Home - Pending the following -clinical improvement Extended Emergency Contact Information Primary Emergency Contact: John Bonilla Relation: Spouse Saima Tan MD Division of Hospitalist Medicine [facility] Images from the original note were not included. Hospitalist Progress Note 09/11/2023 Subjective: Admit Date: 09/09/2023 PCP: No primary care provider on file. Room#: W726/[facility] A Interval History: Patient is 47-year-old with history of cirrhosis, GERD, substance abuse who comes into hospital with complaints of abdominal pain. Patient was seen in the ER and CT abdomen done which showed concern for partial small bowel obstruction. Consultation was placed to surgery. Initially she was kept NPO. Patient was seen with surgery and recommended starting clear liquid diet and no surgical intervention needed. Consultation was also placed ADM for substance abuse and to have signed off at this time. 09/12: Patient alert, chart reviewed, wanted to eat more, feeling better, denies any nausea or vomiting. Had BM today. Objective: Vitals: BP 111/51 (BP Location: Right arm, Patient Position: Sitting) Pulse 69 Temp 36.4 C (97.6 F) (Temporal) Resp 16 SpO2 98% Pulse Ox: SpO2 Av % Min: 98 % Max: 98 % Supplemental O2: Pertinent physical exam: Physical Exam Cardiovascular: Rate and Rhythm: Normal rate and regular rhythm. Pulmonary: Effort: Pulmonary effort is normal. Breath sounds: Normal breath sounds. Abdominal: Palpations: Abdomen is soft. Neurological: General: No focal deficit present. Mental Status: She is oriented to person, place, and time. Assessment Acute, acute on chronic, unstable/uncontrolled chronic problems: Abdominal pain Concern for partial small bowel obstruction Hypokalemia Metabolic acidosis Stable chronic problems affecting care, new non-acute diagnoses: Cirrhosis with ascites Chronic anemia History of substance abuse Chronic thrombocytopenia MDM/Plan Abdominal pain improving, continue to monitor No clear signs of small bowel obstruction, slowly advance diet, surgery following Replace potassium Seen by ADM and no intervention needed at this time Thrombocytopenia secondary to to cirrhosis - DVT prophylaxis: encourage ambulation Total time spent (which include face to face and non face to face encounters) : 55 minutes Toxic drug monitoring/narrow therapeutic index drug monitoring : # Drug name : # Route administered : # Method of monitoring : Advance Directive: Full Code Anticipated Discharge - Date -TBD - Location - Home - Pending the following -clinical improvement Adult diet Clear liquid 24HR INTAKE/OUTPUT: No intake or output data in the 24 hours ending 09/11/23 1344 LABS: CBC: Recent Labs 09/09/238 09/10/23 0622 09/11/23 0030 WBC 9.4 8.2 7.9 RBC 4.56 4.05 3.80 HGB 10.4* 9.1* 8.6* HCT 32.4* 28.8* 27.4* MCV 71.1* 71.2* 72.2* RDW 21.6* 21.4* 21.6* PLT 95* 79* 61* BMP: Recent Labs 09/09/23 1848 09/10/23 0622 09/11/23 0030 NA 136 138 137 K 4.3 4.0 3.4* CL 109* 113* 111* CO2 19* 21* 17* BUN 7 7 8 CREATININE 0.73 0.81 0.73 GLUCOSE 139* 90 76 CALCIUM 8.7 8.6 8.5 ANIONGAP 8 4 9 LIVER PROFILE: Recent Labs 09/09/238 09/10/23 0622 09/11/23 0030 AST 124* 103* 98* ALT 59* 54* 52* BILITOT 2.7* 2.5* 2.3* ALKPHOS 149* 146* 107 PROT 7.2 6.4 6.8 PT/INR: Recent Labs 09/10/23 1218 PROTIME 17.0* INR 1.7* CARDIAC ENZYMES: Recent Labs 09/09/23 1848 09/09/23 2205 09/10/23 0105 TROPONINI <0.012 <0.012 <0.012 Procalcitonin: No results found for: PROCAL Medications: Scheduled desvenlafaxine, 100 mg, Oral, Daily doxepin, 10 mg, Oral, Nightly gabapentin, 100 mg, Oral, BID influenza, 0.5 mL, IntraMUSCular, Once lactulose, 20 g, Oral, TID Or lactulose (Chronulac) 200 g in sterile water 1,000 mL enema, 1 enema, Rectal, TID pantoprazole (ProtoNix) 40 mg in sodium chloride (PF) 0.9 % 10 mL injection, 40 mg, IntraVENous, qAM AC traZODone, 100 mg, Oral, Nightly PRN PRN medications: acetaminophen OR acetaminophen, cloNIDine, dicyclomine, melatonin, morphine sulfate, nicotine, nicotine polacrilex, ondansetron ODT OR ondansetron Extended Emergency Contact Information Primary Emergency Contact: John Bonilla Relation: Spouse Judah Valentine MD Division of Hospitalist Medicine [facility] Nutrition rescreen completed. Patient is NPO/Clear liquid >3 days with cirrhosis. Refer to Dietitian. DUTCH Bowers Patient seen, chart reviewed, please review H&P dictated earlier today for further details. Comes in with complaints of abdominal pain. There is concern for partial small bowel obstruction. Consultation was placed to surgery. Patient overall anxious, wants to eat. Passing flatus. Admits to using meth. Will check urine drug screen. She will be placed on opioid withdrawal protocol. Consult ADM No significant ascites noted We will continue to follow closely. documented in this encounter [facility] 09-15-2023 Hospital course Narrative Discharge Summary Carolina Chad : 1975 ADMIT DATE: 09/09/2023 DISCHARGE DATE: 09/15/2023 PRIMARY CARE PHYSICIAN: No primary care provider on file. VISIT STATUS: Admission CODE STATUS: Full Code DISCHARGE DIAGNOSES: Principal Problem: Small bowel obstruction (HCC) Active Problems: Polysubstance use disorder HOSPITAL COURSE: Patient is 47-year-old with history of cirrhosis, GERD, substance abuse who comes into hospital with complaints of abdominal pain. Patient was seen in the ER and CT abdomen done which showed concern for partial small bowel obstruction. Consultation was placed to surgery. Initially she was kept NPO. Patient was seen with surgery and recommended starting clear liquid diet and no surgical intervention needed. Consultation was also placed ADM for substance abuse and to have signed off at this time. Interval History: Patient is seen and examined, comfortably laying on her bed without in any acute distress, she had paracentesis yesterday and removed 1.7 L of fluid She will be discharged home today No acute overnight changes, plan of care discussed with patient and staff Objective: Vitals: BP 118/55 Pulse 78 Temp 36.8 C (98.3 F) (Temporal) Resp 18 Ht 5' 2.01 (1.575 m) SpO2 98% Pulse Ox: SpO2 Av.5 % Min: 98 % Max: 99 % Supplemental O2: Pertinent physical exam: Physical Exam Cardiovascular: Rate and Rhythm: Normal rate and regular rhythm. Pulmonary: Effort: Pulmonary effort is normal. Breath sounds: Normal breath sounds. Abdominal: Palpations: Abdomen is soft, distended, mild tenderness noted Neurological: General: No focal deficit present. Mental Status: She is oriented to person, place, and time. Assessment Acute, acute on chronic, unstable/uncontrolled chronic problems: Abdominal pain Concern for partial small bowel obstruction Hypokalemia Metabolic acidosis Stable chronic problems affecting care, new non-acute diagnoses: Cirrhosis with ascites Chronic anemia History of substance abuse Chronic thrombocytopenia MDM/Plan Abdominal pain improving, continue to monitor No clear signs of small bowel obstruction, slowly advance diet, surgery following Advance diet as tolerated Paracentesis yesterday, removed 1.7 L fluids Seen by ADM and no intervention needed at this time Thrombocytopenia secondary to to cirrhosis SIGNIFICANT DIAGNOSTIC STUDIES: US guided abdominal paracentesis [[id number]] Collected: 09/14/23 1138 Order Status: Completed Updated: 09/14/231136 Narrative: Patient Name: CAROLINA BONILLA : 1975 Exam Date/Time: 09/14/2023 09:36 Procedure: US GUIDED ABDOMINAL PARACENTESIS Ordering Provider: TAN HARIKRISHNA Reason For Exam: Abdominal distention, pain PROCEDURE: Ultrasound-guided paracentesis PROCEDURAL PERSONNEL Advanced Practice Provider: Windy Pastor PA-C Attending physician, Samir Huerta M.D., was available in the department if needed. Indication: Ascites Additional clinical history: None Complications: No immediate complications. Impression: Ultrasound-guided paracentesis with drainage of 1.7 L of clear yellow fluid. PROCEDURE SUMMARY: - Limited abdominal ultrasound - Ultrasound-guided paracentesis - Additional procedure(s): None PROCEDURE DETAILS: Pre-procedure Consent: Informed consent for the procedure including risks, benefits and alternatives was obtained and time-out was performed prior to the procedure. Preparation: The site was prepared and draped using maximal sterile barrier technique including cutaneous antisepsis. Anesthesia/sedation None Limited abdominal ultrasound Limited abdominal ultrasound was performed. Findings: Moderate to large ascites. A safe window for paracentesis was identified. Paracentesis Local anesthesia was administered. The peritoneal cavity was accessed and fluid return confirmed position. Ascites was drained. Paracentesis access technique: Ultrasound to dacia a suitable access site Catheter placed: 5F Yueh Closure The catheter was removed. A sterile bandage was applied. Post-drainage ultrasound: Minimal ascites Additional Details Additional description of procedure: None Equipment details: None Specimens removed: Abdominal fluid Estimated blood loss (mL): Less than 10 Standardized report: SIR_Paracentesis_v2 Report Dictated on Electronically Signed By: Windy Pastor PA-C Electronically Signed Date/Time: 09/14/2023 11:36 AM EST US guided abdominal paracentesis [[id number]] Collected: 09/10/23853 Order Status: Completed Updated: 09/10/23854 Narrative: Patient Name: CAROLINA BONILLA : 1975 Exam Date/Time: 09/10/2023 08:29 Procedure: US GUIDED ABDOMINAL PARACENTESIS Ordering Provider: SMITH THOMAS Reason For Exam: Hx cirrhosis w/ recurrent ascites ULTRASOUND ABDOMEN-LIMITED: CLINICAL INDICATION: Limited ultrasound prior to ultrasound-guided paracentesis TECHNIQUE: Limited ultrasound of the abdominal quadrants was performed prior to ultrasound-guided paracentesis. COMPARISON: None FINDINGS: Ultrasound images of the abdomen show trace ascites. No significant pocket of fluid amenable to ultrasound guided paracentesis. Impression: Trace ascites, not amenable to ultrasound-guided paracentesis. Paracentesis not performed. Report Dictated on Electronically Signed By: Ananda Edwards MD Electronically Signed Date/Time: 09/10/2023 8:[address] abdomen pelvis w contrast [[id number]] Collected: 09/09/232018 Order Status: Completed Updated: 09/09/232028 Narrative: Patient Name: CAROLINA BONILLA : 1975 Exam Date/Time: 09/09/2023 20:11 Procedure: CT ABDOMEN PELVIS W CONTRAST Ordering Provider: HARRIS KASSIDY Reason For Exam: abdominal pain, nausea and vomiting CT ABDOMEN AND PELVIS WITH CONTRAST CLINICAL INDICATION: Abdominal pain. TECHNIQUE: Multi-axial 3mm sections through the abdomen and pelvis following 75 mL of Isoview contrast media. No oral contrast was administered. Coronal and sagittal reconstructions were reviewed. Dose reduction was employed with automated exposure control. COMPARISON: None. FINDINGS: Lower thorax: Normal. Stomach: Unremarkable. Liver: Cirrhotic appearing liver. No focal lesion. No intrahepatic biliary dilation Biliary tree: Unremarkable gallbladder by CT. No biliary dilatation. Spleen: Splenomegaly. Adrenals: Normal. Pancreas: Normal. Kidneys: Symmetric contrast enhancement without evidence of hydronephrosis. Multiple nonobstructing right renal calculi, the largest of which measures up to 7 to 8 mm. No ureteral or left renal calculi. No focal renal lesion is identified. Free air or fluid: Large amount ascites. Mesenteric/retroperitoneal: Innumerable conspicuous but nonenlarged central mesenteric lymph nodes. Aorta: Normal caliber of aorta and bilateral common iliac arteries. Small bowel: Loops of dilated (up to 5 cm) loops of jejunum in the left upper quadrant, which appear to gradually transition to more normal caliber bowel. No vascular pedicle twisting identified. No bowel wall pneumatosis. Large Bowel: Tentative identification of the normal appendix. No inflammatory change or bowel dilatation is noted. Urinary bladder: Unremarkable. Abdominal wall/soft tissues: No ventral hernia is evident. Pelvic organs/viscera: The uterus is present. Inguinal: No lymphadenopathy. Osseous structures: Unremarkable osseous structures. No suspicious osseous lesion. Impression: 1. Findings concerning for small bowel obstruction including loops of dilated (up to 5 cm) loops of jejunum in the left upper quadrant, which appear to gradually transition to more normal caliber bowel. No vascular pedicle twisting identified. No bowel wall pneumatosis. 2. Large amount of ascites. 3. Cirrhotic appearing liver and splenomegaly. 4. Innumerable conspicuous but nonenlarged central mesenteric lymph nodes. Report Dictated on Electronically Signed By: Scot Shah MD Electronically Signed Date/Time: 09/09/2023 8:28 PM EST XR chest 1 view [[id number]] Collected: 09/09/231846 Order Status: Completed Updated: 09/09/231848 Narrative: Patient Name: CAROLINA BONILLA : 1975 [facility]#: [id number] Exam Date/Time: 09/09/2023 18:44 Procedure: XR CHEST 1 VIEW Ordering Provider: HARRIS KASSIDY Reason For Exam: shortness of breath SINGLE FRONTAL VIEW OF THE CHEST CLINICAL INDICATION: shortness of breath TECHNIQUE: Single frontal view of the chest COMPARISON: None FINDINGS: Lungs show no significant consolidation. No pleural effusion or pneumothorax. No vascular congestion. Heart size normal. Impression: 1. No acute finding. Report Dictated on Electronically Signed By: James Will MD Electronically Signed Date/Time: 09/09/2023 6:48 PM EST CONSULTANTS: General surgery, addiction medicine RECOMMENDED NEXT STEPS: Follow-up with PCP, general surgery, addiction medicine DISCHARGE MEDICATIONS: Medication List START taking these medications desvenlafaxine 100 MG 24 hr tablet Commonly known as: Pristiq Take 1 tablet (100 mg) by mouth daily. Do not crush, chew, or split. Start taking on: September 16, 2023 doxepin 10 MG capsule Commonly known as: SINEquan Take 1 capsule (10 mg) by mouth Nightly. traZODone 100 MG tablet Commonly known as: Desyrel Take 1 tablet (100 mg) by mouth Nightly. CONTINUE taking these medications busPIRone 10 MG tablet Commonly known as: Buspar furosemide 20 MG tablet Commonly known as: Lasix gabapentin 100 MG capsule Commonly known as: Neurontin lactulose 10 GM/15ML solution Commonly known as: Chronulac melatonin 5 MG tablet mirtazapine 15 MG disintegrating tablet Commonly known as: Remeron Destiney-Tab omeprazole [address] capsule Commonly known as: PriLOSEC spironolactone 50 MG tablet Commonly known as: Aldactone Topamax 50 MG tablet Generic drug: topiramate Where to Get Your Medications These medications were sent to [facility] [place] - [address] [place] [address] desvenlafaxine 100 MG 24 hr tablet doxepin 10 MG capsule traZODone 100 MG tablet DIET: Adult diet Regular ACTIVITY: No restriction. COMPLEXITY OF FOLLOW UP: [] Moderate Complexity: follow up within 7-14 calendar days (80527) [] Severe Complexity: follow up within 7 calendar days (40143) FOLLOW UP TESTING, PENDING RESULTS OR REFERRALS AT TRANSITIONAL CARE VISIT: [] Yes [] No PENDING STUDIES: DISPOSITION: Home FACILITY/HOME CARE AGENCY NAME: Follow up with Cristiana Strauss MD [address] [facility] [address] [facility] [phone] Schedule an appointment as soon as possible for a visit Suboxone INSTRUCTIONS TO MA/SW: Please call patient on day after discharge (must document patient contacted within 2 business days of discharge). FOLLOW UP QUESTIONS FOR MA/SW: 1. Did you get medications filled and taking them as instructed from discharge? 2. Are you following your discharge instructions from your hospital stay? 3. Please confirm patient is scheduled for a follow up appointment within the above time frame. DISCHARGE TIME: 43 minutes SIGNED: Saima Tan MD 09/15/2023, 12:04 PM documented in this encounter [facility] 09-15-2023 Note Hospitalist Progress Note 09/15/2023 Subjective: Admit Date: 09/09/2023 PCP: No primary care provider on file. Room#: W7-726/W7-726 A Brief Hospital course: Patient is 47-year-old with history of cirrhosis, GERD, substance abuse who comes into hospital with complaints of abdominal pain. Patient was seen in the ER and CT abdomen done which showed concern for partial small bowel obstruction. Consultation was placed to surgery. Initially she was kept NPO. Patient was seen with surgery and recommended starting clear liquid diet and no surgical intervention needed. Consultation was also placed ADM for substance abuse and to have signed off at this time. Interval History: Patient is seen and examined, comfortably laying on her bed without in any acute distress, she had paracentesis yesterday and removed 1.7 L of fluid She will be discharged home today No acute overnight changes, plan of care discussed with patient and staff Adult diet Regular 24HR INTAKE/OUTPUT: No intake or output data in the 24 hours ending 09/15/23 0822 LABS: CBC: Recent Labs 09/13/23 0126 09/14/23 0613 09/15/23 0119 WBC 4.4 4.6 4.5 RBC 3.60* 3.45* 3.51* HGB 8.1* 7.9* 8.0* HCT 26.1* 24.9* 25.3* MCV 72.4* 72.1* 72.0* RDW 21.1* 21.3* 21.7* PLT 56* 59* 55* BMP: Recent Labs 09/13/23 0126 09/14/23 0206 09/15/23 0119 NA 137 136 136 K 3.9 3.7 3.4* CL 113* 110* 107 CO2 21* 21* 23 BUN 2* 4* 4* CREATININE 0.68 0.62 0.71 GLUCOSE 136* 145* 128* CALCIUM 8.3* 8.2* 8.3* ANIONGAP 4 5 5 LIVER PROFILE: No results for input(s): AST , ALT , BILITOT , ALKPHOS , PROT in the last 72 hours. No lab exists for component: LABALBU PT/INR: No results for input(s): PROTIME , INR in the last 72 hours. CARDIAC ENZYMES: No results for input(s): TROPONINI in the last 72 hours. Procalcitonin: No results found for: PROCAL Medications: Scheduled desvenlafaxine, 100 mg, Oral, Daily doxepin, 10 mg, Oral, Nightly gabapentin, 100 mg, Oral, BID influenza, 0.5 mL, IntraMUSCular, Once lactulose, 20 g, Oral, TID Or lactulose (Chronulac) 200 g in sterile water 1,000 mL enema, 1 enema, Rectal, TID [id number]-[id number], , Topical, TID pantoprazole (ProtoNix) 40 mg in sodium chloride (PF) 0.9 % 10 mL injection, 40 mg, IntraVENous, qAM AC sodium bicarbonate, 650 mg, Oral, BID traZODone, 100 mg, Oral, Nightly PRN PRN medications: acetaminophen OR acetaminophen, cloNIDine, dicyclomine, melatonin, morphine sulfate, naloxone, nicotine, nicotine polacrilex, ondansetron ODT OR ondansetron, sodium chloride Objective: Vitals: BP 118/55 Pulse 78 Temp 36.8 ?C (98.3 ?F) (Temporal) Resp 18 Ht 5' 2.01 (1.575 m) SpO2 98% Pulse Ox: SpO2 Av.5 % Min: 98 % Max: 99 % Supplemental O2: Pertinent physical exam: Physical Exam Cardiovascular: Rate and Rhythm: Normal rate and regular rhythm. Pulmonary: Effort: Pulmonary effort is normal. Breath sounds: Normal breath sounds. Abdominal: Palpations: Abdomen is soft, distended, mild tenderness noted Neurological: General: No focal deficit present. Mental Status: She is oriented to person, place, and time. Assessment Acute, acute on chronic, unstable/uncontrolled chronic problems: Abdominal pain Concern for partial small bowel obstruction Hypokalemia Metabolic acidosis Stable chronic problems affecting care, new non-acute diagnoses: Cirrhosis with ascites Chronic anemia History of substance abuse Chronic thrombocytopenia MDM/Plan Abdominal pain improving, continue to monitor No clear signs of small bowel obstruction, slowly advance diet, surgery following Advance diet as tolerated Paracentesis yesterday, removed 1.7 L fluids Seen by ADM and no intervention needed at this time Thrombocytopenia secondary to to cirrhosis - DVT prophylaxis: encourage ambulation Total time spent (which include face to face and non face to face encounters) : 43 minutes Toxic drug monitoring/narrow therapeutic index drug monitoring : # Drug name : # Route administered : # Method of monitoring : Advance Directive: Full Code Anticipated Discharge - Date -TBD - Location - Home - Pending the following -clinical improvement Extended Emergency Contact Information Primary Emergency Contact: John Bonilla Relation: Spouse Secondary Emergency Contact: Vannesa Bonilla Mobile Relation: Daughter Saima Pedersen MD [facility] Division of Hospitalist Medicine [facility] 09-14-2023 Note Formatting of this n ote might be different from the original. Chart reviewed. Patient had paracentesis today with 1700 ml removed. Surgery is following patient for likely ileus -->no plans for intervention and recommend ADAT. Current discharge plan is home no needs once medically stable. [facility] 09-14-2023 Note Formatting of this n ote might be different from the original. Chart reviewed. Patient had paracentesis today with 1700 ml removed. Surgery is following patient for likely ileus -->no plans for intervention and recommend ADAT. Current discharge plan is home no needs once medically stable. [facility] 09-14-2023 Note Hospitalist Progress Note 09/14/2023 Subjective: Admit Date: 09/09/2023 PCP: No primary care provider on file. Room#: W7-726/W7-726 A Brief Hospital course: Patient is 47-year-old with history of cirrhosis, GERD, substance abuse who comes into hospital with complaints of abdominal pain. Patient was seen in the ER and CT abdomen done which showed concern for partial small bowel obstruction. Consultation was placed to surgery. Initially she was kept NPO. Patient was seen with surgery and recommended starting clear liquid diet and no surgical intervention needed. Consultation was also placed ADM for substance abuse and to have signed off at this time. Interval History: Patient is seen and examined, resting comfortably on her bed, not in acute distress awaiting ultrasound guided paracentesis No acute overnight changes, plan of care discussed with patient and staff Adult diet Regular 24HR INTAKE/OUTPUT: No intake or output data in the 24 hours ending 09/14/23 0958 LABS: CBC: Recent Labs 09/12/23 0112 09/13/23 0126 09/14/23 0613 WBC 5.1 4.4 4.6 RBC 3.50* 3.60* 3.45* HGB 7.9* 8.1* 7.9* HCT 25.0* 26.1* 24.9* MCV 71.5* 72.4* 72.1* RDW 21.1* 21.1* 21.3* PLT 58* 56* 59* BMP: Recent Labs 09/12/23 0112 09/13/23 0126 09/14/23 0206 NA 136 137 136 K 3.9 3.9 3.7 CL 111* 113* 110* CO2 19* 21* 21* BUN 3* 2* 4* CREATININE 0.64 0.68 0.62 GLUCOSE 110* 136* 145* CALCIUM 8.7 8.3* 8.2* ANIONGAP 6 4 5 LIVER PROFILE: Recent Labs 09/12/23111 AST 106* ALT 54* BILITOT 1.9* ALKPHOS 112 PROT 6.1* PT/INR: No results for input(s): PROTIME , INR in the last 72 hours. CARDIAC ENZYMES: No results for input(s): TROPONINI in the last 72 hours. Procalcitonin: No results found for: PROCAL Medications: Scheduled desvenlafaxine, 100 mg, Oral, Daily doxepin, 10 mg, Oral, Nightly gabapentin, 100 mg, Oral, BID influenza, 0.5 mL, IntraMUSCular, Once lactulose, 20 g, Oral, TID Or lactulose (Chronulac) 200 g in sterile water 1,000 mL enema, 1 enema, Rectal, TID [id number]-kmpqwiunub-vhoqhxmez, , Topical, TID pantoprazole (ProtoNix) 40 mg in sodium chloride (PF) 0.9 % 10 mL injection, 40 mg, IntraVENous, qAM AC sodium bicarbonate, 650 mg, Oral, BID traZODone, 100 mg, Oral, Nightly PRN PRN medications: acetaminophen OR acetaminophen, cloNIDine, dicyclomine, melatonin, morphine sulfate, naloxone, nicotine, nicotine polacrilex, ondansetron ODT OR ondansetron, sodium chloride Objective: Vitals: BP 118/55 Pulse 78 Temp 36.8 ?C (98.3 ?F) (Temporal) Resp 18 Ht 5' 2.01 (1.575 m) SpO2 98% Pulse Ox: SpO2 Av.5 % Min: 98 % Max: 99 % Supplemental O2: Pertinent physical exam: Physical Exam Cardiovascular: Rate and Rhythm: Normal rate and regular rhythm. Pulmonary: Effort: Pulmonary effort is normal. Breath sounds: Normal breath sounds. Abdominal: Palpations: Abdomen is soft, distended, mild tenderness noted Neurological: General: No focal deficit present. Mental Status: She is oriented to person, place, and time. Assessment Acute, acute on chronic, unstable/uncontrolled chronic problems: Abdominal pain Concern for partial small bowel obstruction Hypokalemia Metabolic acidosis Stable chronic problems affecting care, new non-acute diagnoses: Cirrhosis with ascites Chronic anemia History of substance abuse Chronic thrombocytopenia MDM/Plan Abdominal pain improving, continue to monitor No clear signs of small bowel obstruction, slowly advance diet, surgery following Advance diet as tolerated Paracentesis ordered Seen by ADM and no intervention needed at this time Thrombocytopenia secondary to to cirrhosis Awaiting ultrasound-guided paracentesis - DVT prophylaxis: encourage ambulation Total time spent (which include face to face and non face to face encounters) : 41 minutes Toxic drug monitoring/narrow therapeutic index drug monitoring : # Drug name : # Route administered : # Method of monitoring : Advance Directive: Full Code Anticipated Discharge - Date -TBD - Location - Home - Pending the following -clinical improvement Extended Emergency Contact Information Primary Emergency Contact: John Bonilla Relation: Spouse Secondary Emergency Contact: Vannesa Bonilla Mobile Relation: Daughter Saima Pedersen MD [facility] of Hospitalist Medicine [facility] 09-14-2023 Note Formatting of this n ote might be different from the original. Patient to ultrasound department for paracentesis. History, medications and allergies reviewed. Samuel Pastor PA-C in to speak with patient. Informed consent obtained. 1700 mL clear yellow colored fluid removed. Patient tolerated procedure well. Bandaid applied to site. Patient discharged to [facility] 09-14-2023 Note Formatting of this n ote might be different from the original. Patient to ultrasound department for paracentesis. History, medications and allergies reviewed. Samuel Pastor PA-C in to speak with patient. Informed consent obtained. 1700 mL clear yellow colored fluid removed. Patient tolerated procedure well. Bandaid applied to site. Patient discharged to [facility] 09-13-2023 Note Hospitalist Progress Note 09/13/2023 Subjective: Admit Date: 09/09/2023 PCP: No primary care provider on file. Room#: W7726/W72 A Brief Hospital course: Patient is 47-year-old with history of cirrhosis, GERD, substance abuse who comes into hospital with complaints of abdominal pain. Patient was seen in the ER and CT abdomen done which showed concern for partial small bowel obstruction. Consultation was placed to surgery. Initially she was kept NPO. Patient was seen with surgery and recommended starting clear liquid diet and no surgical intervention needed. Consultation was also placed ADM for substance abuse and to have signed off at this time. 09/12: Patient alert, chart reviewed, wanted to eat more, feeling better, denies any nausea or vomiting. Had BM today. Interval History: Patient is seen and examined, laying on her bed, complaining of abdominal distention, pain, will order ultrasound guided paracentesis No acute overnight changes, plan of care discussed with patient and staff Adult diet Regular 24HR INTAKE/OUTPUT: No intake or output data in the 24 hours ending 09/13/23 0902 LABS: CBC: Recent Labs 09/11/23 0030 09/12/23 0112 09/13/23 0126 WBC 7.9 5.1 4.4 RBC 3.80 3.50* 3.60* HGB 8.6* 7.9* 8.1* HCT 27.4* 25.0* 26.1* MCV 72.2* 71.5* 72.4* RDW 21.6* 21.1* 21.1* PLT 61* 58* 56* BMP: Recent Labs 09/11/23 0030 09/12/23 0112 09/13/23 012 NA 137 136 137 K 3.4* 3.9 3.9 CL 111* 111* 113* CO2 17* 19* 21* BUN 8 3* 2* CREATININE 0.73 0.64 0.68 GLUCOSE 76 110* 136* CALCIUM 8.5 8.7 8.3* ANIONGAP 9 6 4 LIVER PROFILE: Recent Labs 09/11/23 0030 09/12/23 0112 AST 98* 106* ALT 52* 54* BILITOT 2.3* 1.9* ALKPHOS 107 112 PROT 6.8 6.1* PT/INR: Recent Labs 09/10/23 1218 PROTIME 17.0* INR 1.7* CARDIAC ENZYMES: No results for input(s): TROPONINI in the last 72 hours. Procalcitonin: No results found for: PROCAL Medications: Scheduled desvenlafaxine, 100 mg, Oral, Daily doxepin, 10 mg, Oral, Nightly gabapentin, 100 mg, Oral, BID influenza, 0.5 mL, IntraMUSCular, Once lactulose, 20 g, Oral, TID Or lactulose (Chronulac) 200 g in sterile water 1,000 mL enema, 1 enema, Rectal, TID pantoprazole (ProtoNix) 40 mg in sodium chloride (PF) 0.9 % 10 mL injection, 40 mg, IntraVENous, qAM AC sodium bicarbonate, 650 mg, Oral, BID traZODone, 100 mg, Oral, Nightly PRN PRN medications: acetaminophen OR acetaminophen, cloNIDine, dicyclomine, melatonin, morphine sulfate, nicotine, nicotine polacrilex, ondansetron ODT OR ondansetron, sodium chloride Objective: Vitals: BP 118/55 Pulse 78 Temp 36.8 ?C (98.3 ?F) (Temporal) Resp 18 Ht 5' 2.01 (1.575 m) SpO2 98% Pulse Ox: SpO2 Av.5 % Min: 98 % Max: 99 % Supplemental O2: Pertinent physical exam: Physical Exam Cardiovascular: Rate and Rhythm: Normal rate and regular rhythm. Pulmonary: Effort: Pulmonary effort is normal. Breath sounds: Normal breath sounds. Abdominal: Palpations: Abdomen is soft, distended, mild tenderness noted Neurological: General: No focal deficit present. Mental Status: She is oriented to person, place, and time. Assessment Acute, acute on chronic, unstable/uncontrolled chronic problems: Abdominal pain Concern for partial small bowel obstruction Hypokalemia Metabolic acidosis Stable chronic problems affecting care, new non-acute diagnoses: Cirrhosis with ascites Chronic anemia History of substance abuse Chronic thrombocytopenia MDM/Plan Abdominal pain improving, continue to monitor No clear signs of small bowel obstruction, slowly advance diet, surgery following Advance diet as tolerated Paracentesis ordered Seen by ADM and no intervention needed at this time Thrombocytopenia secondary to to cirrhosis - DVT prophylaxis: encourage ambulation Total time spent (which include face to face and non face to face encounters) : 40 minutes Toxic drug monitoring/narrow therapeutic index drug monitoring : # Drug name : # Route administered : # Method of monitoring : Advance Directive: Full Code Anticipated Discharge - Date -TBD - Location - Home - Pending the following -clinical improvement Extended Emergency Contact Information Primary Emergency Contact: John Bonilla Relation: Spouse Secondary Emergency Contact: Vannesa Bonilla Mobile Relation: Daughter Saima Pedersen MD [facility] Hospitalist Medicine [facility] 09-13-2023 Note Care Management Prog ress Note Patient remains on 7W with possible partial small bowel obstruction. Surgery s/o, +bm, diet advanced. Addiction Medicine following for polysubstance abuse. Discharge plan home independently with Significant Other. Discharge Milestones and Delays Expected Date/Time: 09/14/[address] discharge order Complete med reconciliation Case mgmt discharge readiness Clinical Stability Diagnsotic Workup Expected Discharge History Expected Date/Time Set By Reviewed At 09/14/2023 Meg Herrmann RN 09/12/2023 10:14 AM 09/12/2023 JOSE Collins 09/10/2023 5:32 AM 09/12/2023 JOSE Collins 09/09/2023 9:18 PM 09/12/2023 JOSE Collins 09/09/2023 8:44 PM Length of Stay (Days): 4 GMLOS: No GMLOS Documented [facility] 09-13-2023 Note Formatting of this n ote is different from the original. Images from the original note were not included. Care Management Progress Note Patient remains on 7W with possible partial small bowel obstruction. Surgery s/o, +bm, diet advanced. Addiction Medicine following for polysubstance abuse. Discharge plan home independently with Significant Other. Discharge Milestones and Delays Expected Date/Time: 09/14/[address] discharge order Complete med reconciliation Case mgmt discharge readiness Clinical Stability Diagnsotic Workup Expected Discharge History Expected Date/Time Set By Reviewed At 09/14/2023 Meg Herrmann RN 09/12/2023 10:14 AM 09/12/2023 JOSE Collins 09/10/2023 5:32 AM 09/12/2023 JOSE Collins 09/09/2023 9:18 PM 09/12/2023 JOSE Collins 09/09/2023 8:44 PM Length of Stay (Days): 4 GMLOS: No GMLOS Documented [facility] 09-13-2023 Note Formatting of this n ote is different from the original. Images from the original note were not included. Care Management Progress Note Patient remains on 7W with possible partial small bowel obstruction. Surgery s/o, +bm, diet advanced. Addiction Medicine following for polysubstance abuse. Discharge plan home independently with Significant Other. Discharge Milestones and Delays Expected Date/Time: 09/14/[address] discharge order Complete med reconciliation Case mgmt discharge readiness Clinical Stability Diagnsotic Workup Expected Discharge History Expected Date/Time Set By Reviewed At 09/14/2023 Meg Herrmann RN 09/12/2023 10:14 AM 09/12/2023 JOSE Collins 09/10/2023 5:32 AM 09/12/2023 JOSE Collins 09/09/2023 9:18 PM 09/12/2023 JOSE Collins 09/09/2023 8:44 PM Length of Stay (Days): 4 GMLOS: No GMLOS Documented [facility] 09-12-2023 Note Hospitalist Progress Note 09/12/2023 Subjective: Admit Date: 09/09/2023 PCP: No primary care provider on file. Room#: W7-726/W7-726 A Brief Hospital course: Patient is 47-year-old with history of cirrhosis, GERD, substance abuse who comes into hospital with complaints of abdominal pain. Patient was seen in the ER and CT abdomen done which showed concern for partial small bowel obstruction. Consultation was placed to surgery. Initially she was kept NPO. Patient was seen with surgery and recommended starting clear liquid diet and no surgical intervention needed. Consultation was also placed ADM for substance abuse and to have signed off at this time. 09/12: Patient alert, chart reviewed, wanted to eat more, feeling better, denies any nausea or vomiting. Had BM today. Interval History: Patient is seen and examined, resting comfortably on her bed, appears to be not in acute distress No acute overnight changes, plan of care discussed with patient and staff Adult diet Full liquid 24HR INTAKE/OUTPUT: No intake or output data in the 24 hours ending 09/12/23 0904 LABS: CBC: Recent Labs 09/10/23 0622 09/11/23 0030 09/12/23 0112 WBC 8.2 7.9 5.1 RBC 4.05 3.80 3.50* HGB 9.1* 8.6* 7.9* HCT 28.8* 27.4* 25.0* MCV 71.2* 72.2* 71.5* RDW 21.4* 21.6* 21.1* PLT 79* 61* 58* BMP: Recent Labs 09/10/23 0622 09/11/23 0030 09/12/23 011 NA 138 137 136 K 4.0 3.4* 3.9 CL 113* 111* 111* CO2 21* 17* 19* BUN 7 8 3* CREATININE 0.81 0.73 0.64 GLUCOSE 90 76 110* CALCIUM 8.6 8.5 8.7 ANIONGAP 4 9 6 LIVER PROFILE: Recent Labs 09/10/23 0609/11/23 0030 09/12/23 011 AST 103* 98* 106* ALT 54* 52* 54* BILITOT 2.5* 2.3* 1.9* ALKPHOS 146* 107 112 PROT 6.4 6.8 6.1* PT/INR: Recent Labs 09/10/23 1218 PROTIME 17.0* INR 1.7* CARDIAC ENZYMES: Recent Labs 09/09/23 1848 09/09/23 2205 09/10/23 0105 TROPONINI <0.012 <0.012 <0.012 Procalcitonin: No results found for: PROCAL Medications: Scheduled desvenlafaxine, 100 mg, Oral, Daily doxepin, 10 mg, Oral, Nightly gabapentin, 100 mg, Oral, BID influenza, 0.5 mL, IntraMUSCular, Once lactulose, 20 g, Oral, TID Or lactulose (Chronulac) 200 g in sterile water 1,000 mL enema, 1 enema, Rectal, TID pantoprazole (ProtoNix) 40 mg in sodium chloride (PF) 0.9 % 10 mL injection, 40 mg, IntraVENous, qAM AC sodium bicarbonate, 650 mg, Oral, BID traZODone, 100 mg, Oral, Nightly PRN PRN medications: acetaminophen OR acetaminophen, cloNIDine, dicyclomine, melatonin, morphine sulfate, nicotine, nicotine polacrilex, ondansetron ODT OR ondansetron Objective: Vitals: BP 118/55 Pulse 78 Temp 36.8 ?C (98.3 ?F) (Temporal) Resp 18 Ht 5' 2.01 (1.575 m) SpO2 98% Pulse Ox: SpO2 Av.5 % Min: 98 % Max: 99 % Supplemental O2: Pertinent physical exam: Physical Exam Cardiovascular: Rate and Rhythm: Normal rate and regular rhythm. Pulmonary: Effort: Pulmonary effort is normal. Breath sounds: Normal breath sounds. Abdominal: Palpations: Abdomen is soft. Neurological: General: No focal deficit present. Mental Status: She is oriented to person, place, and time. Assessment Acute, acute on chronic, unstable/uncontrolled chronic problems: Abdominal pain Concern for partial small bowel obstruction Hypokalemia Metabolic acidosis Stable chronic problems affecting care, new non-acute diagnoses: Cirrhosis with ascites Chronic anemia History of substance abuse Chronic thrombocytopenia MDM/Plan Abdominal pain improving, continue to monitor No clear signs of small bowel obstruction, slowly advance diet, surgery following Advance diet as tolerated Seen by ADM and no intervention needed at this time Thrombocytopenia secondary to to cirrhosis - DVT prophylaxis: encourage ambulation Total time spent (which include face to face and non face to face encounters) : 42 minutes Toxic drug monitoring/narrow therapeutic index drug monitoring : # Drug name : # Route administered : # Method of monitoring : Advance Directive: Full Code Anticipated Discharge - Date -TBD - Location - Home - Pending the following -clinical improvement Extended Emergency Contact Information Primary Emergency Contact: John Bonilla Relation: Spouse Saima Tan MD Division of Hospitalist Medicine [facility] 09-12-2023 Note Formatting of this n ote might be different from the original. Care Managment Initial Assessment Date: 09/12/2023 Patient Name: Carolina Bonilla : 1975 Patient Information Source of Information: Patient Cognition/Language: WFL - Within Functional Limits Permission given to speak with patient manufacturers representative/caregiver as indicated: Yes Confirmation of Payer with patient/family: Yes Payer Name: [employer] Medicaid : No Confirmation of Primary Care Physician: Confirmed PCP Name: Dr. Drake- ELENAF Seen in last 2 years?: Yes Primary Caregiver: Self If assistance needed, confirmed caregiver ready, willing and able to care for patient at discharge: Confirmed with: Living Arrangements Current Residence: House Number of Floors 2 Number of Entry Steps: Bed/Bath Levels: Facility: Facility Name: Plan to Return: Yes Lives with: Spouse/significant other Support Systems: Spouse/significant other Activities of Daily Living Ambulation: Independent Bathing/Dressing: Independent Elimination/Continence/Toileting : Independent Feeding: Independent Who Assists with Activities of Daily Living: Instrumental Activities of Daily Living Prescription Coverage: Yes Pharmacy Used: Medication Management: Independent Transportation/Shopping: Assistance Provider Transportation Mode: Public transportation Needs Assistance with Transportation at Discharge: Yes Meal Preparation: Independent Laundry/Cleaning: Independent Finances/Bill Paying: Independent Communication: Independent Types of Care Services/Equipment Utilized Care Services: Dialysis Type: NA Durable Medical Equipment: Patient's Goal/Discharge Plan Patient expects to be discharged to: Home Discharge Planning Actions: Continue to follow Patient's Choice Rights and [employer] and Collaborative Relationships Disclosed as Indicated for Post-Acute Care: Yes Interdisciplinary Team Engagement: Social Work Referral for: Additional Information: Patient admitted to with abdominal pain, nausea and vomiting, hx: polysubstance abuse. FL diet and Addiction Medicine consulted. Discharge plan home with Significant Other. Meg Herrmann RN [facility] 09-12-2023 Note Formatting of this n ote might be different from the original. Care Managment Initial Assessment Date: 09/12/2023 Patient Name: Carolina Bonilla : 1975 Patient Information Source of Information: Patient Cognition/Language: WFL - Within Functional Limits Permission given to speak with patient manufacturers representative/caregiver as indicated: Yes Confirmation of Payer with patient/family: Yes Payer Name: [facility] Medicaid : No Confirmation of Primary Care Physician: Confirmed PCP Name: Dr. Drake- ELISEO Seen in last 2 years?: Yes Primary Caregiver: Self If assistance needed, confirmed caregiver ready, willing and able to care for patient at discharge: Confirmed with: Living Arrangements Current Residence: House Number of Floors 2 Number of Entry Steps: Bed/Bath Levels: Facility: Facility Name: Plan to Return: Yes Lives with: Spouse/significant other Support Systems: Spouse/significant other Activities of Daily Living Ambulation: Independent Bathing/Dressing: Independent Elimination/Continence/Toileting : Independent Feeding: Independent Who Assists with Activities of Daily Living: Instrumental Activities of Daily Living Prescription Coverage: Yes Pharmacy Used: Medication Management: Independent Transportation/Shopping: Assistance Provider Transportation Mode: Public transportation Needs Assistance with Transportation at Discharge: Yes Meal Preparation: Independent Laundry/Cleaning: Independent Finances/Bill Paying: Independent Communication: Independent Types of Care Services/Equipment Utilized Care Services: Dialysis Type: NA Durable Medical Equipment: Patient's Goal/Discharge Plan Patient expects to be discharged to: Home Discharge Planning Actions: Continue to follow Patient's Choice Rights and [employer] and Collaborative Relationships Disclosed as Indicated for Post-Acute Care: Yes Interdisciplinary Team Engagement: Social Work Referral for: Additional Information: Patient admitted to with abdominal pain, nausea and vomiting, hx: polysubstance abuse. [place] diet and Addiction Medicine consulted. Discharge plan home with Significant Other. Meg Herrmann RN [email or web address] 09-11-2023 Note Formatting of this n ote might be different from the original. Attempted to complete Initial assessment over the phone. Patient currently unavailable/off unit. Will try again as time allows. TCC will follow. [employer] 09-11-2023 Note Formatting of this n ote might be different from the original. Attempted to complete Initial assessment over the phone. Patient currently unavailable/off unit. Will try again as time allows. TCC will follow. [employer] 09-11-2023 Note Hospitalist Progress Note 09/11/2023 Subjective: Admit Date: 09/09/2023 PCP: No primary care provider on file. Room#: W7-726/W7-726 A Interval History: Patient is 47-year-old with history of cirrhosis, GERD, substance abuse who comes into hospital with complaints of abdominal pain. Patient was seen in the ER and CT abdomen done which showed concern for partial small bowel obstruction. Consultation was placed to surgery. Initially she was kept NPO. Patient was seen with surgery and recommended starting clear liquid diet and no surgical intervention needed. Consultation was also placed ADM for substance abuse and to have signed off at this time. 09/12: Patient alert, chart reviewed, wanted to eat more, feeling better, denies any nausea or vomiting. Had BM today. Objective: Vitals: BP 111/51 (BP Location: Right arm, Patient Position: Sitting) Pulse 69 Temp 36.4 ?C (97.6 ?F) (Temporal) Resp 16 SpO2 98% Pulse Ox: SpO2 Av % Min: 98 % Max: 98 % Supplemental O2: Pertinent physical exam: Physical Exam Cardiovascular: Rate and Rhythm: Normal rate and regular rhythm. Pulmonary: Effort: Pulmonary effort is normal. Breath sounds: Normal breath sounds. Abdominal: Palpations: Abdomen is soft. Neurological: General: No focal deficit present. Mental Status: She is oriented to person, place, and time. Assessment Acute, acute on chronic, unstable/uncontrolled chronic problems: Abdominal pain Concern for partial small bowel obstruction Hypokalemia Metabolic acidosis Stable chronic problems affecting care, new non-acute diagnoses: Cirrhosis with ascites Chronic anemia History of substance abuse Chronic thrombocytopenia MDM/Plan Abdominal pain improving, continue to monitor No clear signs of small bowel obstruction, slowly advance diet, surgery following Replace potassium Seen by ADM and no intervention needed at this time Thrombocytopenia secondary to to cirrhosis - DVT prophylaxis: encourage ambulation Total time spent (which include face to face and non face to face encounters) : 55 minutes Toxic drug monitoring/narrow therapeutic index drug monitoring : # Drug name : # Route administered : # Method of monitoring : Advance Directive: Full Code Anticipated Discharge - Date -TBD - Location - Home - Pending the following -clinical improvement Adult diet Clear liquid 24HR INTAKE/OUTPUT: No intake or output data in the 24 hours ending 09/11/23 1344 LABS: CBC: Recent Labs 09/09/23 1848 09/10/23 0622 09/11/23 0030 WBC 9.4 8.2 7.9 RBC 4.56 4.05 3.80 HGB 10.4* 9.1* 8.6* HCT 32.4* 28.8* 27.4* MCV 71.1* 71.2* 72.2* RDW 21.6* 21.4* 21.6* PLT 95* 79* 61* BMP: Recent Labs 09/09/238 09/10/23 0622 09/11/23 0030 NA 136 138 137 K 4.3 4.0 3.4* CL 109* 113* 111* CO2 19* 21* 17* BUN 7 7 8 CREATININE 0.73 0.81 0.73 GLUCOSE 139* 90 76 CALCIUM 8.7 8.6 8.5 ANIONGAP 8 4 9 LIVER PROFILE: Recent Labs 09/09/23184709/10/23 0622 09/11/23 0030 AST 124* 103* 98* ALT 59* 54* 52* BILITOT 2.7* 2.5* 2.3* ALKPHOS 149* 146* 107 PROT 7.2 6.4 6.8 PT/INR: Recent Labs 09/10/23 1218 PROTIME 17.0* INR 1.7* CARDIAC ENZYMES: Recent Labs 09/09/23 1848 09/09/23 2205 09/10/23 0105 TROPONINI <0.012 <0.012 <0.012 Procalcitonin: No results found for: PROCAL Medications: Scheduled desvenlafaxine, 100 mg, Oral, Daily doxepin, 10 mg, Oral, Nightly gabapentin, 100 mg, Oral, BID influenza, 0.5 mL, IntraMUSCular, Once lactulose, 20 g, Oral, TID Or lactulose (Chronulac) 200 g in sterile water 1,000 mL enema, 1 enema, Rectal, TID pantoprazole (ProtoNix) 40 mg in sodium chloride (PF) 0.9 % 10 mL injection, 40 mg, IntraVENous, qAM AC traZODone, 100 mg, Oral, Nightly PRN PRN medications: acetaminophen OR acetaminophen, cloNIDine, dicyclomine, melatonin, morphine sulfate, nicotine, nicotine polacrilex, ondansetron ODT OR ondansetron Extended Emergency Contact Information Primary Emergency Contact: John Bonilla Relation: Spouse Judah Valentine MD Division of Hospitalist Medicine [facility] 09-11-2023 Note ADDICTION MEDICINE CONSULTATION H&P Patient: Carolina Bonilla Admit Date: 09/09/2023 Primary Care Physician: No primary care provider on file. Reason for Consultation: Substance use. __ HISTORY OF PRESENT ILLNESS Chief Complaint Patient presents with Abdominal Pain Carolina Bonilla is a 47 y.o. year old obese, white female with a PMH of hep C, GERD, retroperitoneal bleed, depression, back pain, and a polysubstance use disorder that was admitted for evaluation of abdominal pain. Upon arrival, imaging and clinical exam concerning for a SBO. Surgery has been consulted. Alcohol found to have cirrhosis with ascites. She has been started on a tramadol taper due to concern regarding heroin/fentanyl abuse. However, she tells me she hasn't used heroin/fentanyl in about 10 years. She does admit to using everything at one point in her life or another including alcohol, opiates, cocaine, benzos, and meth. However, she says she only smoked meth about a month ago. Otherwise, she is using marijuana regularly now and that is it. She denies going thru withdrawal now. She is having nicotine cravings. She is A/O x 3. USG - paracentesis attempted yesterday but not enough ascites available for draw. On admission, a urine drug screen was negative, and a serum alcohol level was not obtained. SUBSTANCE USE HISTORY Brief Substance Use Narrative She endorses a long history of polysubstance use including heroin/fentanyl, THC, benzos, cocaine, meth and alcohol. However, she says she has remained sober outside of daily THC use, and sporadic [place] meth use (last time was about a month ago). She has been thru numerous inpatient and outpatient treatment programs. OARRS reviewed - only getting gabapentin 100 mg BID prescribed (last fill 09/01/23). Current Substance Use Alcohol: denies. Amphetamines: sporadic meth use. Benzos: denies. Cocaine: denies. Hallucinogens: denies. Marijuana: daily. Nicotine: daily. Opioids: denies. Treatment History Inpatient Rehab: numerous. Chem Dep IOP: numerous. Detoxifications: numerous. 12 Step Meetings: in the past. Medication Assisted Treatment: denies. Consequences [] IVDA. [x] Blackouts related to substance use. [] History of withdrawal seizures. [] History of delirium tremens. [x] History of overdoses. [x] Legal consequences of substance use. Substance Use Disorder Criteria 2-3 = mild; 4-5 = moderate; 6 or >6 = severe substance use disorder [x] Taking substance in larger amounts and/or for longer than intended. [x] Wanting to cut down or quit but not being able to. [x] Spending a lot of time obtaining the substance. [x] Craving or a strong desire to use substance. [x] Repeatedly doesn't carry out major obligations due to substance use. [x] Using despite recurring social or interpersonal problems. [x] Reducing social, occupational, or recreational activities. [x] Recurrent use in physically hazardous situations. [x] Consistent use despite recurrent physical or psychological difficulties. [x] Tolerance (increased amounts to achieve intoxication or diminished effect). [x] Withdrawal syndrome or the substance is used to avoid withdrawal. REMAINING HISTORY Past Medical History History reviewed. No pertinent past medical history. Past Surgical History History reviewed. No pertinent surgical history. Family History No family history on file. Social Determinants of Health Tobacco Use: Not on file Alcohol Use: Not At Risk (09/10/2023) AUDIT-C Frequency of Alcohol Consumption: Never Average Number of Drinks: Patient does not drink Frequency of Binge Drinking: Never Financial Resource Strain: Not on file Food Insecurity: Not on file Transportation Needs: Not on file Physical Activity: Not on file Stress: Not on file Social Connections: Not on file Intimate Partner Violence: Not At Risk (09/10/2023) Humiliation, Afraid, Rape, and Kick questionnaire Fear of Current or Ex-Partner: No Emotionally Abused: No Physically Abused: No Sexually Abused: No Depression: Not on file Housing Stability: Not on file Utilities: Not on file REVIEW OF SYSTEMS Review of Systems Constitutional: Positive for activity change, appetite change and fatigue. Gastrointestinal: Positive for abdominal pain and nausea. Musculoskeletal: Positive for arthralgias, back pain and myalgias. Neurological: Positive for weakness. Psychiatric/Behavioral: Positive for sleep disturbance. All other systems reviewed and are negative. EXAM Vitals Vitals: 09/10/23 0759 09/10/23 0800 09/10/23 1726 09/11/23 0527 BP: (!) 114/45 114/63 131/76 111/51 BP Location: Right arm Right arm Patient Position: Sitting Sitting Pulse: 83 76 56 69 Resp: 17 16 Temp: 36.6 ?C (97.9 ?F) 36.4 ?C (97.6 ?F) TempSrc: Temporal Temporal SpO2: 98% 98% Physical Exam Vi (more content not included)... [facility] 09-11-2023 Hospital Discharg e instructions Jozef Cordova MD - 09/11/2023 11:48 AM EST Images from the original note were not included. [facility] Addiction Medicine Intensive Outpatient Program [place] ([facility]): [phone] [place]: [phone] [place]: [phone] Behavioral Health Intensive Outpatient Program [place] ([facility]): [phone] [place]: [phone] First Step [place] ([facility]): [phone] [place]: [phone] Partial Hospitalization Program [place] ([facility]): [phone] [facility] [place] ([facility]): [phone] [facility] ([facility]): [phone] Alcoholics Anonymous Meetings [email or web address] [address], [address], [place] [address] Saima Tan MD - 09/15/2023 12:01 PM EST F/U with PCP, GI, Addiction Medicine documented in this encounter [facility] 09-11-2023 Consult note Associated Order (s): IP CONSULT TO ADDICTION MEDICINE Images from the original note were not included. ADDICTION MEDICINE CONSULTATION H&P Patient: Carolina Bonilla Admit Date: 09/09/2023 Primary Care Physician: No primary care provider on file. Reason for Consultation: Substance use. HISTORY OF PRESENT ILLNESS Chief Complaint Patient presents with Abdominal Pain Carolina Bonilla is a 47 y.o. year old obese, white female with a PMH of hep C, GERD, retroperitoneal bleed, depression, back pain, and a polysubstance use disorder that was admitted for evaluation of abdominal pain. Upon arrival, imaging and clinical exam concerning for a SBO. Surgery has been consulted. Alcohol found to have cirrhosis with ascites. She has been started on a tramadol taper due to concern regarding heroin/fentanyl abuse. However, she tells me she hasn't used heroin/fentanyl in about 10 years. She does admit to using everything at one point in her life or another including alcohol, opiates, cocaine, benzos, and meth. However, she says she only smoked meth about a month ago. Otherwise, she is using marijuana regularly now and that is it. She denies going thru withdrawal now. She is having nicotine cravings. She is A/O x 3. USG - paracentesis attempted yesterday but not enough ascites available for draw. On admission, a urine drug screen was negative, and a serum alcohol level was not obtained. SUBSTANCE USE HISTORY Brief Substance Use Narrative She endorses a long history of polysubstance use including heroin/fentanyl, THC, benzos, cocaine, meth and alcohol. However, she says she has remained sober outside of daily THC use, and sporadic [place] meth use (last time was about a month ago). She has been thru numerous inpatient and outpatient treatment programs. OARRS reviewed - only getting gabapentin 100 mg BID prescribed (last fill 09/01/23). Current Substance Use Alcohol: denies. Amphetamines: sporadic meth use. Benzos: denies. Cocaine: denies. Hallucinogens: denies. Marijuana: daily. Nicotine: daily. Opioids: denies. Treatment History Inpatient Rehab: numerous. Chem Dep IOP: numerous. Detoxifications: numerous. 12 Step Meetings: in the past. Medication Assisted Treatment: denies. Consequences [] IVDA. [x] Blackouts related to substance use. [] History of withdrawal seizures. [] History of delirium tremens. [x] History of overdoses. [x] Legal consequences of substance use. Substance Use Disorder Criteria 2-3 = mild; 4-5 = moderate; 6 or >6 = severe substance use disorder [x] Taking substance in larger amounts and/or for longer than intended. [x] Wanting to cut down or quit but not being able to. [x] Spending a lot of time obtaining the substance. [x] Craving or a strong desire to use substance. [x] Repeatedly doesn't carry out major obligations due to substance use. [x] Using despite recurring social or interpersonal problems. [x] Reducing social, occupational, or recreational activities. [x] Recurrent use in physically hazardous situations. [x] Consistent use despite recurrent physical or psychological difficulties. [x] Tolerance (increased amounts to achieve intoxication or diminished effect). [x] Withdrawal syndrome or the substance is used to avoid withdrawal. REMAINING HISTORY Past Medical History History reviewed. No pertinent past medical history. Past Surgical History History reviewed. No pertinent surgical history. Family History No family history on file. Social Determinants of Health Tobacco Use: Not on file Alcohol Use: Not At Risk (09/10/2023) AUDIT-C Frequency of Alcohol Consumption: Never Average Number of Drinks: Patient does not drink Frequency of Binge Drinking: Never Financial Resource Strain: Not on file Food Insecurity: Not on file Transportation Needs: Not on file Physical Activity: Not on file Stress: Not on file Social Connections: Not on file Intimate Partner Violence: Not At Risk (09/10/2023) Humiliation, Afraid, Rape, and Kick questionnaire Fear of Current or Ex-Partner: No Emotionally Abused: No Physically Abused: No Sexually Abused: No Depression: Not on file Housing Stability: Not on file Utilities: Not on file REVIEW OF SYSTEMS Review of Systems Constitutional: Positive for activity change, appetite change and fatigue. Gastrointestinal: Positive for abdominal pain and nausea. Musculoskeletal: Positive for arthralgias, back pain and myalgias. Neurological: Positive for weakness. Psychiatric/Behavioral: Positive for sleep disturbance. All other systems reviewed and are negative. EXAM Vitals Vitals: 09/10/23 0759 09/10/23 0800 09/10/23 1726 09/11/23 0527 BP: (!) 114/45 114/63 131/76 111/51 BP Location: Right arm Right arm Patient Position: Sitting Sitting Pulse: 83 76 56 69 Resp: 17 16 Temp: 36.6 C (97.9 F) 36.4 C (97.6 F) TempSrc: Temporal Temporal SpO2: 98% 98% Physical Exam Vitals and nursing note reviewed. Constitutional: Appearance: She is obese. She is ill-appearing. HENT: Head: Normocephalic and atraumatic. Cardiovascular: Rate and Rhythm: Normal rate and regular rhythm. Abdominal: General: There is distension. Comments: Deferred Musculoskeletal: General: Normal range of motion. Neurological: General: No focal deficit present. Mental Status: She is alert and oriented to person, place, and time. Cranial Nerves: Cranial nerves 2-12 are intact. Motor: No tremor. Psychiatric: Attention and Perception: Attention and perception normal. Mood and Affect: Affect is flat. Speech: Speech normal. Behavior: Behavior normal. Behavior is cooperative. IMAGING US guided abdominal paracentesis Result Date: 09/10/2023 Patient Name: CAROLINA BONILLA DOB: 1975 Exam Date/Time: 09/10/2023 08:29 Procedure: US GUIDED ABDOMINAL PARACENTESIS Ordering Provider: SMITH THOMAS Reason For Exam: Hx cirrhosis w/ recurrent ascites ULTRASOUND ABDOMEN-LIMITED: CLINICAL INDICATION: Limited ultrasound prior to ultrasound-guided paracentesis TECHNIQUE: Limited ultrasound of the abdominal quadrants was performed prior to ultrasound-guided paracentesis. COMPARISON: None FINDINGS: Ultrasound images of the abdomen show trace ascites. No significant pocket of fluid amenable to ultrasound guided paracentesis. Trace ascites, not amenable to ultrasound-guided paracentesis. Paracentesis not performed. Report Dictated on Electronically Signed By: Ananda Edwards MD Electronically Signed Date/Time: 09/10/2023 8:[address] abdomen pelvis w contrast Result Date: 09/09/2023 Patient Name: CAROLINA BONILLA : 1975 Exam Date/Time: 09/09/2023 20:11 Procedure: CT ABDOMEN PELVIS W CONTRAST Ordering Provider: HARRIS KASSIDY Reason For Exam: abdominal pain, nausea and vomiting CT ABDOMEN AND PELVIS WITH CONTRAST CLINICAL INDICATION: Abdominal pain. TECHNIQUE: Multi-axial 3mm sections through the abdomen and pelvis following 75 mL of Isoview contrast media. No oral contrast was administered. Coronal and sagittal reconstructions were reviewed. Dose reduction was employed with automated exposure control. COMPARISON: None. FINDINGS: Lower thorax: Normal. Stomach: Unremarkable. Liver: Cirrhotic appearing liver. No focal lesion. No intrahepatic biliary dilation Biliary tree: Unremarkable gallbladder by CT. No biliary dilatation. Spleen: Splenomegaly. Adrenals: Normal. Pancreas: Normal. Kidneys: Symmetric contrast enhancement without evidence of hydronephrosis. Multiple nonobstructing right renal calculi, the largest of which measures up to 7 to 8 mm. No ureteral or left renal calculi. No focal renal lesion is identified. Free air or fluid: Large amount ascites. Mesenteric/retroperitoneal: Innumerable conspicuous but nonenlarged central mesenteric lymph nodes. Aorta: Normal caliber of aorta and bilateral common iliac arteries. Small bowel: Loops of dilated (up to 5 cm) loops of jejunum in the left upper quadrant, which appear to gradually transition to more normal caliber bowel. No vascular pedicle twisting identified. No bowel wall pneumatosis. Large Bowel: Tentative identification of the normal appendix. No inflammatory change or bowel dilatation is noted. Urinary bladder: Unremarkable. Abdominal wall/soft tissues: No ventral hernia is evident. Pelvic organs/viscera: The uterus is present. Inguinal: No lymphadenopathy. Osseous structures: Unremarkable osseous structures. No suspicious osseous lesion. 1. Findings concerning for small bowel obstruction including loops of dilated (up to 5 cm) loops of jejunum in the left upper quadrant, which appear to gradually transition to more normal caliber bowel. No vascular pedicle twisting identified. No bowel wall pneumatosis. 2. Large amount of ascites. 3. Cirrhotic appearing liver and splenomegaly. 4. Innumerable conspicuous but nonenlarged central mesenteric lymph nodes. Report Dictated on Electronically Signed By: Scot Shah MD Electronically Signed Date/Time: 09/09/2023 8:28 PM EST ECG 12 lead Sinus rhythm Low voltage, precordial leads Borderline prolonged QT interval Electronically Signed On 09-09-2023 19:59:30 EST by Lenny Macdonald XR chest 1 view Result Date: 09/09/2023 [facility] 1975 [id number] Exam Date/Time: 09/09/2023 18:44 Procedure: XR CHEST 1 VIEW Ordering Provider: HARRIS KASSIDY Reason For Exam: shortness of breath SINGLE FRONTAL VIEW OF THE CHEST CLINICAL INDICATION: shortness of breath TECHNIQUE: Single frontal view of the chest COMPARISON: None FINDINGS: Lungs show no significant consolidation. No pleural effusion or pneumothorax. No vascular congestion. Heart size normal. 1. No acute finding. Report Dictated on Electronically Signed By: James Will MD Electronically Signed Date/Time: 09/09/2023 6:48 PM EST LABS Recent Results (from the past 48 hour(s)) ECG 12 lead Collection Time: 09/09/23 6:46 PM Result Value Ref Range Heart Rate 73 bpm QRSD Interval 81 ms QT Interval 455 ms QTC Interval 501 ms P [place] 55 degrees QRS [place] -7 degrees T Wave [place] 28 degrees MD Interval 157 ms CBC auto differential Collection Time: 09/09/23 6:48 PM Result Value Ref Range Auto WBC 9.4 3.6 - 10.7 10*3/uL RBC 4.56 3.8 - 5.20 10*6/uL Hemoglobin 10.4 (L) 11.7 - 16.0 g/dL Hematocrit 32.4 (L) 35.0 - 47.0 % MCV 71.1 (L) 80.0 - 98.0 fL MCH 22.8 (L) 26.0 - 34.0 pg MCHC 32.0 32.0 - 36.0 % RDW 21.6 (H) 11.5 - 14.5 % Platelets 95 (L) 140 - 440 10*3/uL MPV 9.2 7.4 - 12.4 fL nRBC 0.2 0.0 - 2.0 /100 WBCs Basic metabolic panel Collection Time: 09/09/23 6:48 PM Result Value Ref Range SODIUM 136 135 - 145 mmol/L POTASSIUM 4.3 3.5 - 5.1 mmol/L CHLORIDE 109 (H) 98 - 107 mmol/L CARBON DIOXIDE 19 (L) 22 - 30 mmol/L UREA NITROGEN 7 7 - 17 mg/dL CREATININE 0.73 0.52 - 1.04 mg/dL GLUCOSE 139 (H) 70 - 100 mg/dL CALCIUM 8.7 8.4 - 10.4 mg/dL ANION GAP 8 3 - 13 mmol/L eGFR >90.0 >60.0 mL/min/1.73m*2 Hepatic function panel Collection Time: 09/09/23 6:48 PM Result Value Ref Range BILIRUBIN, TOTAL 2.7 (H) 0.2 - 1.3 mg/dL BILIRUBIN, DIRECT 0.0 0.0 - 0.3 mg/dL ALKALINE PHOSPHATASE 149 (H) 38 - 126 U/L AST (SGOT) 124 (H) 15 - 46 U/L ALT 59 (H) 0 - 34 U/L ALBUMIN 3.2 (L) 3.5 - 5.0 g/dL TOTAL PROTEIN 7.2 6.3 - 8.2 g/dL Lipase Collection Time: 09/09/23 6:48 PM Result Value Ref Range LIPASE 188 23 - 300 U/L Troponin, with Serial Reflex Collection Time: 09/09/23 6:48 PM Result Value Ref Range TROPONIN I <0.012 <0.034 ng/mL Ammonia Collection Time: 09/09/23 6:48 PM Result Value Ref Range AMMONIA 106 (H) 9 - 30 umol/L Man Differential Collection Time: 09/09/23 6:48 PM Result Value Ref Range Adjusted WBC 9.4 3.6 - 10.7 10*3/uL Neutrophils % 67 40 - 80 % Lymphocytes % 21 20 - 40 % Monocytes % 7 2 - 10 % Eosinophils % 4 1 - 6 % Basophils % 1 0 - 2 % Absolute Neutrophil Count 6.3 1.8 - 7.0 10*3/uL Lymphocytes Absolute 2.0 1.0 - 4.3 10*3/uL Monocytes Absolute 0.7 0.0 - 0.8 10*3/uL Eosinophils Absolute 0.4 0.0 - 0.5 10*3/uL Basophils Absolute 0.1 0.0 - 0.2 10*3/uL Anisocytosis Moderate (A) (none) Microcytes Slight (A) (none) Hypochromia Slight (A) (none) Ovalocytes Slight (A) (none) WBC Morphology Normal PLT Morphology Normal Total Counted 100 Neutrophils Manual 67 Lymphocytes Manual 21 Monocytes Manual 7 Eosinophils Manual 4 (H) 0 - 1 Basophils Manual 1 Differential Method Automated differential reported after manual slide review hCG, urine, qualitative Collection Time: 09/09/23 8:01 PM Result Value Ref Range HCG,URINE QUAL Negative Negative COVID-19, Flu A/B, and RSV Combo Collection Time: 09/09/23 8:01 PM Specimen: Nasopharynx; Swab Result Value Ref Range SARS-CoV-2 Not Detected Not Detected Respiratory Syncytial Virus Not Detected Not Detected Influenza A Not Detected Not Detected Influenza B Not Detected Not Detected Complete Urinalysis Collection Time: 09/09/23 8:01 PM Result Value Ref Range Color, Urine Yellow Lt. Yellow Clarity, Urine Clear Clear pH, Urine 6.5 5.0 - 8.0 pH Leukocytes, Urine Negative Negative Joo/uL Nitrite, Urine Negative Negative Protein, Urine Negative Negative mg/dL Glucose, Urine Normal Normal (<70) mg/dL Bilirubin, Urine Negative Negative mg/dL Ketones, Urine Negative Negative mg/dL Urobilinogen, Urine Normal Normal (0-1) mg/dL Blood, Urine 0.2 (A) Negative mg/dL RBC, Urine 3-5 (A) 0 - 2 /HPF WBC, Urine 0-2 0 - 5 /HPF Squamous Epithelial, Urine 6-10 (A) 3 - 5 /HPF Non-Squamous Epithalial Cells, Urine 0-2 (A) Negative /HPF Bacteria, Urine Moderate (A) Negative /HPF Mucus, Urine Few Negative /LPF SPECIFIC GRAVITY OF URINE (NUMERIC) 1.010 1.005 - 1.030 Drug screen panel, emergency Collection Time: 09/09/23 8:01 PM Result Value Ref Range AMPHETAMINE SCREEN Negative BARBITURATES SCREEN Negative BENZODIAZEPINE SCREEN Negative COCAINE METAB. SCREEN Negative METHADONE SCREEN Negative OPIATES SCREEN Negative OXYCODONE SCREEN Negative PHENCYCLIDINE SCREEN Negative Troponin I Collection Time: 09/09/23 10:05 PM Result Value Ref Range TROPONIN I <0.012 <0.034 ng/mL Troponin I Collection Time: 09/10/23 1:05 AM Result Value Ref Range TROPONIN I <0.012 <0.034 ng/mL Ammonia Collection Time: 09/10/23 6:22 AM Result Value Ref Range AMMONIA 78 (H) 9 - 30 umol/L Iron and TIBC Collection Time: 09/10/23 6:22 AM Result Value Ref Range IRON, TOTAL 48 37 - 170 ug/dL IRON BINDING CAPACITY 376 261 - 497 ug/dL IRON SATURATION 13 (L) 15 - 50 % Comprehensive metabolic panel Collection Time: 09/10/23 6:22 AM Result Value Ref Range SODIUM 138 135 - 145 mmol/L POTASSIUM 4.0 3.5 - 5.1 mmol/L CHLORIDE 113 (H) 98 - 107 mmol/L CARBON DIOXIDE 21 (L) 22 - 30 mmol/L ANION GAP 4 3 - 13 mmol/L UREA NITROGEN 7 7 - 17 mg/dL CREATININE 0.81 0.52 - 1.04 mg/dL GLUCOSE 90 70 - 100 mg/dL CALCIUM 8.6 8.4 - 10.4 mg/dL AST (SGOT) 103 (H) 15 - 46 U/L ALT 54 (H) 0 - 34 U/L ALKALINE PHOSPHATASE 146 (H) 38 - 126 U/L ALBUMIN 2.8 (L) 3.5 - 5.0 g/dL BILIRUBIN, TOTAL 2.5 (H) 0.2 - 1.3 mg/dL TOTAL PROTEIN 6.4 6.3 - 8.2 g/dL eGFR 89.1 >60.0 mL/min/1.73m*2 CBC Collection Time: 09/10/23 6:22 AM Result Value Ref Range Auto WBC 8.2 3.6 - 10.7 10*3/uL RBC 4.05 3.8 - 5.20 10*6/uL Hemoglobin 9.1 (L) 11.7 - 16.0 g/dL Hematocrit 28.8 (L) 35.0 - 47.0 % MCV 71.2 (L) 80.0 - 98.0 fL MCH 22.5 (L) 26.0 - 34.0 pg MCHC 31.7 (L) 32.0 - 36.0 % RDW 21.4 (H) 11.5 - 14.5 % Platelets 79 (L) 140 - 440 10*3/uL MPV 8.9 7.4 - 12.4 fL Magnesium Collection Time: 09/10/23 6:22 AM Result Value Ref Range MAGNESIUM 1.7 1.6 - 2.3 mg/dL PROTIME/INR & PTT Collection Time: 09/10/23 12:18 PM Result Value Ref Range PROTHROMBIN TIME 17.0 (H) 9.0 - 12.0 s INR 1.7 (H) 0.9 - 1.1 APTT 40.2 (H) 20.0 - 30.5 s Comprehensive metabolic panel Collection Time: 09/11/23 12:30 AM Result Value Ref Range SODIUM 137 135 - 145 mmol/L POTASSIUM 3.4 (L) 3.5 - 5.1 mmol/L CHLORIDE 111 (H) 98 - 107 mmol/L CARBON DIOXIDE 17 (L) 22 - 30 mmol/L ANION GAP 9 3 - 13 mmol/L UREA NITROGEN 8 7 - 17 mg/dL CREATININE 0.73 0.52 - 1.04 mg/dL GLUCOSE 76 70 - 100 mg/dL CALCIUM 8.5 8.4 - 10.4 mg/dL AST (SGOT) 98 (H) 15 - 46 U/L ALT 52 (H) 0 - 34 U/L ALKALINE PHOSPHATASE 107 38 - 126 U/L ALBUMIN 3.3 (L) 3.5 - 5.0 g/dL BILIRUBIN, TOTAL 2.3 (H) 0.2 - 1.3 mg/dL TOTAL PROTEIN 6.8 6.3 - 8.2 g/dL eGFR >90.0 >60.0 mL/min/1.73m*2 Ammonia Collection Time: 09/11/23 12:30 AM Result Value Ref Range AMMONIA 65 (H) 9 - 30 umol/L CBC auto differential Collection Time: 09/11/23 12:30 AM Result Value Ref Range Auto WBC 7.9 3.6 - 10.7 10*3/uL RBC 3.80 3.8 - 5.20 10*6/uL Hemoglobin 8.6 (L) 11.7 - 16.0 g/dL Hematocrit 27.4 (L) 35.0 - 47.0 % MCV 72.2 (L) 80.0 - 98.0 fL MCH 22.5 (L) 26.0 - 34.0 pg MCHC 31.2 (L) 32.0 - 36.0 % RDW 21.6 (H) 11.5 - 14.5 % Platelets 61 (L) 140 - 440 10*3/uL MPV 8.5 7.4 - 12.4 fL nRBC 0.0 0.0 - 2.0 /100 WBCs Neutrophils Relative 63.6 40.0 - 80.0 % Lymphocytes Relative 20.6 20.0 - 40.0 % Monocytes Relative 10.9 (H) 2.0 - 10.0 % Eosinophils Relative 4.4 1.0 - 6.0 % Basophils Relative 0.5 0.0 - 2.0 % Neutrophils Absolute 5.0 1.8 - 7.0 10*3/uL Lymphocytes Absolute 1.6 1.0 - 4.3 10*3/uL Monocytes Absolute 0.9 (H) 0.0 - 0.8 10*3/uL Eosinophils Absolute 0.3 0.0 - 0.5 10*3/uL Basophils Absolute 0.0 0.0 - 0.2 10*3/uL Bilirubin, direct Collection Time: 09/11/23 12:30 AM Result Value Ref Range BILIRUBIN, DIRECT 0.0 0.0 - 0.3 mg/dL MEDICATIONS Home Meds No current outpatient medications Scheduled Inpatient Meds desvenlafaxine, 100 mg, Oral, Daily doxepin, 10 mg, Oral, Nightly gabapentin, 100 mg, Oral, BID influenza, 0.5 mL, IntraMUSCular, Once lactulose, 20 g, Oral, TID Or lactulose (Chronulac) 200 g in sterile water 1,000 mL enema, 1 enema, Rectal, TID pantoprazole (ProtoNix) 40 mg in sodium chloride (PF) 0.9 % 10 mL injection, 40 mg, IntraVENous, qAM AC traZODone, 100 mg, Oral, Nightly PRN Inpatient Meds PRN medications: acetaminophen OR acetaminophen, cloNIDine, dicyclomine, melatonin, morphine sulfate, nicotine, nicotine polacrilex, ondansetron ODT OR ondansetron, oxyCODONE OR oxyCODONE Continuous Inpatient Infusions None ASSESSMENT & PLAN Severe polysubstance use disorder Although she has an extensive history of abusing numerous drugs, she is only using THC, cigarettes and methamphetamines sporadically in the last month. She is not having any major drug withdrawal besides from nicotine. No reason for a tramadol taper now - will discontinue OARRS reviewed - gabapentin already restarted She does have oxy ordered prn for pain - however opioids may make SBO worse so I recommend discontinuing opioids. Nicotine patch and lozenge ordered If she wishes to pursue a drug treatment she is welcome to contact our department as an outpatient and I told her that; I will place contact information in her chart SBO Cirrhosis with trace ascites Mgmt per IM and surgery Disposition: Per IM. Signing off. I reviewed the patient's medical record, and reviewed test results. I educated and then counseled the patient on any substance use disorder or chemical dependency related issues. This included a face to face evaluation and physical examination, and coordinating care on a substance use disorder treatment plan as well as documenting clinical information on the day of visit. [facility] 09-11-2023 Consult note Associated Order (s): IP CONSULT TO ADDICTION MEDICINE Images from the original note were not included. ADDICTION MEDICINE CONSULTATION H&P Patient: Carolina Bonilla Admit Date: 09/09/2023 Primary Care Physician: No primary care provider on file. Reason for Consultation: Substance use. HISTORY OF PRESENT ILLNESS Chief Complaint Patient presents with Abdominal Pain Carolina Bonilla is a 47 y.o. year old obese, white female with a PMH of hep C, GERD, retroperitoneal bleed, depression, back pain, and a polysubstance use disorder that was admitted for evaluation of abdominal pain. Upon arrival, imaging and clinical exam concerning for a SBO. Surgery has been consulted. Alcohol found to have cirrhosis with ascites. She has been started on a tramadol taper due to concern regarding heroin/fentanyl abuse. However, she tells me she hasn't used heroin/fentanyl in about 10 years. She does admit to using everything at one point in her life or another including alcohol, opiates, cocaine, benzos, and meth. However, she says she only smoked meth about a month ago. Otherwise, she is using marijuana regularly now and that is it. She denies going thru withdrawal now. She is having nicotine cravings. She is A/O x 3. USG - paracentesis attempted yesterday but not enough ascites available for draw. On admission, a urine drug screen was negative, and a serum alcohol level was not obtained. SUBSTANCE USE HISTORY Brief Substance Use Narrative She endorses a long history of polysubstance use including heroin/fentanyl, THC, benzos, cocaine, meth and alcohol. However, she says she has remained sober outside of daily THC use, and sporadic [place] meth use (last time was about a month ago). She has been thru numerous inpatient and outpatient treatment programs. OARRS reviewed - only getting gabapentin 100 mg BID prescribed (last fill 09/01/23). Current Substance Use Alcohol: denies. Amphetamines: sporadic meth use. Benzos: denies. Cocaine: denies. Hallucinogens: denies. Marijuana: daily. Nicotine: daily. Opioids: denies. Treatment History Inpatient Rehab: numerous. Chem Dep IOP: numerous. Detoxifications: numerous. 12 Step Meetings: in the past. Medication Assisted Treatment: denies. Consequences [] IVDA. [x] Blackouts related to substance use. [] History of withdrawal seizures. [] History of delirium tremens. [x] History of overdoses. [x] Legal consequences of substance use. Substance Use Disorder Criteria 2-3 = mild; 4-5 = moderate; 6 or >6 = severe substance use disorder [x] Taking substance in larger amounts and/or for longer than intended. [x] Wanting to cut down or quit but not being able to. [x] Spending a lot of time obtaining the substance. [x] Craving or a strong desire to use substance. [x] Repeatedly doesn't carry out major obligations due to substance use. [x] Using despite recurring social or interpersonal problems. [x] Reducing social, occupational, or recreational activities. [x] Recurrent use in physically hazardous situations. [x] Consistent use despite recurrent physical or psychological difficulties. [x] Tolerance (increased amounts to achieve intoxication or diminished effect). [x] Withdrawal syndrome or the substance is used to avoid withdrawal. REMAINING HISTORY Past Medical History History reviewed. No pertinent past medical history. Past Surgical History History reviewed. No pertinent surgical history. Family History No family history on file. Social Determinants of Health Tobacco Use: Not on file Alcohol Use: Not At Risk (09/10/2023) AUDIT-C Frequency of Alcohol Consumption: Never Average Number of Drinks: Patient does not drink Frequency of Binge Drinking: Never Financial Resource Strain: Not on file Food Insecurity: Not on file Transportation Needs: Not on file Physical Activity: Not on file Stress: Not on file Social Connections: Not on file Intimate Partner Violence: Not At Risk (09/10/2023) Humiliation, Afraid, Rape, and Kick questionnaire Fear of Current or Ex-Partner: No Emotionally Abused: No Physically Abused: No Sexually Abused: No Depression: Not on file Housing Stability: Not on file Utilities: Not on file REVIEW OF SYSTEMS Review of Systems Constitutional: Positive for activity change, appetite change and fatigue. Gastrointestinal: Positive for abdominal pain and nausea. Musculoskeletal: Positive for arthralgias, back pain and myalgias. Neurological: Positive for weakness. Psychiatric/Behavioral: Positive for sleep disturbance. All other systems reviewed and are negative. EXAM Vitals Vitals: 09/10/23 0759 09/10/23 0800 09/10/23 1726 09/11/23 0527 BP: (!) 114/45 114/63 131/76 111/51 BP Location: Right arm Right arm Patient Position: Sitting Sitting Pulse: 83 76 56 69 Resp: 17 16 Temp: 36.6 C (97.9 F) 36.4 C (97.6 F) TempSrc: Temporal Temporal SpO2: 98% 98% Physical Exam Vitals and nursing note reviewed. Constitutional: Appearance: She is obese. She is ill-appearing. HENT: Head: Normocephalic and atraumatic. Cardiovascular: Rate and Rhythm: Normal rate and regular rhythm. Abdominal: General: There is distension. Comments: Deferred Musculoskeletal: General: Normal range of motion. Neurological: General: No focal deficit present. Mental Status: She is alert and oriented to person, place, and time. Cranial Nerves: Cranial nerves 2-12 are intact. Motor: No tremor. Psychiatric: Attention and Perception: Attention and perception normal. Mood and Affect: Affect is flat. Speech: Speech normal. Behavior: Behavior normal. Behavior is cooperative. IMAGING US guided abdominal paracentesis Result Date: 09/10/2023 Patient Name: CAROLINA BONILLA : 1975 Exam Date/Time: 09/10/2023 08:29 Procedure: US GUIDED ABDOMINAL PARACENTESIS Ordering Provider: SMITH THOMAS Reason For Exam: Hx cirrhosis w/ recurrent ascites ULTRASOUND ABDOMEN-LIMITED: CLINICAL INDICATION: Limited ultrasound prior to ultrasound-guided paracentesis TECHNIQUE: Limited ultrasound of the abdominal quadrants was performed prior to ultrasound-guided paracentesis. COMPARISON: None FINDINGS: Ultrasound images of the abdomen show trace ascites. No significant pocket of fluid amenable to ultrasound guided paracentesis. Trace ascites, not amenable to ultrasound-guided paracentesis. Paracentesis not performed. Report Dictated on Electronically Signed By: Ananda Edwards MD Electronically Signed Date/Time: 09/10/2023 8:[address] abdomen pelvis w contrast Result Date: 09/09/2023 Patient Name: CAROLINA BONILLA : 1975 Exam Date/Time: 09/09/2023 20:11 Procedure: CT ABDOMEN PELVIS W CONTRAST Ordering Provider: HARRIS KASSIDY Reason For Exam: abdominal pain, nausea and vomiting CT ABDOMEN AND PELVIS WITH CONTRAST CLINICAL INDICATION: Abdominal pain. TECHNIQUE: Multi-axial 3mm sections through the abdomen and pelvis following 75 mL of Isoview contrast media. No oral contrast was administered. Coronal and sagittal reconstructions were reviewed. Dose reduction was employed with automated exposure control. COMPARISON: None. FINDINGS: Lower thorax: Normal. Stomach: Unremarkable. Liver: Cirrhotic appearing liver. No focal lesion. No intrahepatic biliary dilation Biliary tree: Unremarkable gallbladder by CT. No biliary dilatation. Spleen: Splenomegaly. Adrenals: Normal. Pancreas: Normal. Kidneys: Symmetric contrast enhancement without evidence of hydronephrosis. Multiple nonobstructing right renal calculi, the largest of which measures up to 7 to 8 mm. No ureteral or left renal calculi. No focal renal lesion is identified. Free air or fluid: Large amount ascites. Mesenteric/retroperitoneal: Innumerable conspicuous but nonenlarged central mesenteric lymph nodes. Aorta: Normal caliber of aorta and bilateral common iliac arteries. Small bowel: Loops of dilated (up to 5 cm) loops of jejunum in the left upper quadrant, which appear to gradually transition to more normal caliber bowel. No vascular pedicle twisting identified. No bowel wall pneumatosis. Large Bowel: Tentative identification of the normal appendix. No inflammatory change or bowel dilatation is noted. Urinary bladder: Unremarkable. Abdominal wall/soft tissues: No ventral hernia is evident. Pelvic organs/viscera: The uterus is present. Inguinal: No lymphadenopathy. Osseous structures: Unremarkable osseous structures. No suspicious osseous lesion. 1. Findings concerning for small bowel obstruction including loops of dilated (up to 5 cm) loops of jejunum in the left upper quadrant, which appear to gradually transition to more normal caliber bowel. No vascular pedicle twisting identified. No bowel wall pneumatosis. 2. Large amount of ascites. 3. Cirrhotic appearing liver and splenomegaly. 4. Innumerable conspicuous but nonenlarged central mesenteric lymph nodes. Report Dictated on Electronically Signed By: Scot Shah MD Electronically Signed Date/Time: 09/09/2023 8:28 PM EST ECG 12 lead Sinus rhythm Low voltage, precordial leads Borderline prolonged QT interval Electronically Signed On 09-09-2023 19:59:30 EST by Lenny Macdonald XR chest 1 view Result Date: 09/09/2023 [facility] 1975 [id number] Exam Date/Time: 09/09/2023 18:44 Procedure: XR CHEST 1 VIEW Ordering Provider: HARRIS KASSIDY Reason For Exam: shortness of breath SINGLE FRONTAL VIEW OF THE CHEST CLINICAL INDICATION: shortness of breath TECHNIQUE: Single frontal view of the chest COMPARISON: None FINDINGS: Lungs show no significant consolidation. No pleural effusion or pneumothorax. No vascular congestion. Heart size normal. 1. No acute finding. Report Dictated on Electronically Signed By: James Will MD Electronically Signed Date/Time: 09/09/2023 6:48 PM EST LABS Recent Results (from the past 48 hour(s)) ECG 12 lead Collection Time: 09/09/23 6:46 PM Result Value Ref Range Heart Rate 73 bpm QRSD Interval 81 ms QT Interval 455 ms QTC Interval 501 ms P [place] 55 degrees QRS [place] -7 degrees T Wave [place] 28 degrees MD Interval 157 ms CBC auto differential Collection Time: 09/09/23 6:48 PM Result Value Ref Range Auto WBC 9.4 3.6 - 10.7 10*3/uL RBC 4.56 3.8 - 5.20 10*6/uL Hemoglobin 10.4 (L) 11.7 - 16.0 g/dL Hematocrit 32.4 (L) 35.0 - 47.0 % MCV 71.1 (L) 80.0 - 98.0 fL MCH 22.8 (L) 26.0 - 34.0 pg MCHC 32.0 32.0 - 36.0 % RDW 21.6 (H) 11.5 - 14.5 % Platelets 95 (L) 140 - 440 10*3/uL MPV 9.2 7.4 - 12.4 fL nRBC 0.2 0.0 - 2.0 /100 WBCs Basic metabolic panel Collection Time: 09/09/23 6:48 PM Result Value Ref Range SODIUM 136 135 - 145 mmol/L POTASSIUM 4.3 3.5 - 5.1 mmol/L CHLORIDE 109 (H) 98 - 107 mmol/L CARBON DIOXIDE 19 (L) 22 - 30 mmol/L UREA NITROGEN 7 7 - 17 mg/dL CREATININE 0.73 0.52 - 1.04 mg/dL GLUCOSE 139 (H) 70 - 100 mg/dL CALCIUM 8.7 8.4 - 10.4 mg/dL ANION GAP 8 3 - 13 mmol/L eGFR >90.0 >60.0 mL/min/1.73m*2 Hepatic function panel Collection Time: 09/09/23 6:48 PM Result Value Ref Range BILIRUBIN, TOTAL 2.7 (H) 0.2 - 1.3 mg/dL BILIRUBIN, DIRECT 0.0 0.0 - 0.3 mg/dL ALKALINE PHOSPHATASE 149 (H) 38 - 126 U/L AST (SGOT) 124 (H) 15 - 46 U/L ALT 59 (H) 0 - 34 U/L ALBUMIN 3.2 (L) 3.5 - 5.0 g/dL TOTAL PROTEIN 7.2 6.3 - 8.2 g/dL Lipase Collection Time: 09/09/23 6:48 PM Result Value Ref Range LIPASE 188 23 - 300 U/L Troponin, with Serial Reflex Collection Time: 09/09/23 6:48 PM Result Value Ref Range TROPONIN I <0.012 <0.034 ng/mL Ammonia Collection Time: 09/09/23 6:48 PM Result Value Ref Range AMMONIA 106 (H) 9 - 30 umol/L Man Differential Collection Time: 09/09/23 6:48 PM Result Value Ref Range Adjusted WBC 9.4 3.6 - 10.7 10*3/uL Neutrophils % 67 40 - 80 % Lymphocytes % 21 20 - 40 % Monocytes % 7 2 - 10 % Eosinophils % 4 1 - 6 % Basophils % 1 0 - 2 % Absolute Neutrophil Count 6.3 1.8 - 7.0 10*3/uL Lymphocytes Absolute 2.0 1.0 - 4.3 10*3/uL Monocytes Absolute 0.7 0.0 - 0.8 10*3/uL Eosinophils Absolute 0.4 0.0 - 0.5 10*3/uL Basophils Absolute 0.1 0.0 - 0.2 10*3/uL Anisocytosis Moderate (A) (none) Microcytes Slight (A) (none) Hypochromia Slight (A) (none) Ovalocytes Slight (A) (none) WBC Morphology Normal PLT Morphology Normal Total Counted 100 Neutrophils Manual 67 Lymphocytes Manual 21 Monocytes Manual 7 Eosinophils Manual 4 (H) 0 - 1 Basophils Manual 1 Differential Method Automated differential reported after manual slide review hCG, urine, qualitative Collection Time: 09/09/23 8:01 PM Result Value Ref Range HCG,URINE QUAL Negative Negative COVID-19, Flu A/B, and RSV Combo Collection Time: 09/09/23 8:01 PM Specimen: Nasopharynx; Swab Result Value Ref Range SARS-CoV-2 Not Detected Not Detected Respiratory Syncytial Virus Not Detected Not Detected Influenza A Not Detected Not Detected Influenza B Not Detected Not Detected Complete Urinalysis Collection Time: 09/09/23 8:01 PM Result Value Ref Range Color, Urine Yellow Lt. Yellow Clarity, Urine Clear Clear pH, Urine 6.5 5.0 - 8.0 pH Leukocytes, Urine Negative Negative Joo/uL Nitrite, Urine Negative Negative Protein, Urine Negative Negative mg/dL Glucose, Urine Normal Normal (<70) mg/dL Bilirubin, Urine Negative Negative mg/dL Ketones, Urine Negative Negative mg/dL Urobilinogen, Urine Normal Normal (0-1) mg/dL Blood, Urine 0.2 (A) Negative mg/dL RBC, Urine 3-5 (A) 0 - 2 /HPF WBC, Urine 0-2 0 - 5 /HPF Squamous Epithelial, Urine 6-10 (A) 3 - 5 /HPF Non-Squamous Epithalial Cells, Urine 0-2 (A) Negative /HPF Bacteria, Urine Moderate (A) Negative /HPF Mucus, Urine Few Negative /LPF SPECIFIC GRAVITY OF URINE (NUMERIC) 1.010 1.005 - 1.030 Drug screen panel, emergency Collection Time: 09/09/23 8:01 PM Result Value Ref Range AMPHETAMINE SCREEN Negative BARBITURATES SCREEN Negative BENZODIAZEPINE SCREEN Negative COCAINE METAB. SCREEN Negative METHADONE SCREEN Negative OPIATES SCREEN Negative OXYCODONE SCREEN Negative PHENCYCLIDINE SCREEN Negative Troponin I Collection Time: 09/09/23 10:05 PM Result Value Ref Range TROPONIN I <0.012 <0.034 ng/mL Troponin I Collection Time: 09/10/23 1:05 AM Result Value Ref Range TROPONIN I <0.012 <0.034 ng/mL Ammonia Collection Time: 09/10/23 6:22 AM Result Value Ref Range AMMONIA 78 (H) 9 - 30 umol/L Iron and TIBC Collection Time: 09/10/23 6:22 AM Result Value Ref Range IRON, TOTAL 48 37 - 170 ug/dL IRON BINDING CAPACITY 376 261 - 497 ug/dL IRON SATURATION 13 (L) 15 - 50 % Comprehensive metabolic panel Collection Time: 09/10/23 6:22 AM Result Value Ref Range SODIUM 138 135 - 145 mmol/L POTASSIUM 4.0 3.5 - 5.1 mmol/L CHLORIDE 113 (H) 98 - 107 mmol/L CARBON DIOXIDE 21 (L) 22 - 30 mmol/L ANION GAP 4 3 - 13 mmol/L UREA NITROGEN 7 7 - 17 mg/dL CREATININE 0.81 0.52 - 1.04 mg/dL GLUCOSE 90 70 - 100 mg/dL CALCIUM 8.6 8.4 - 10.4 mg/dL AST (SGOT) 103 (H) 15 - 46 U/L ALT 54 (H) 0 - 34 U/L ALKALINE PHOSPHATASE 146 (H) 38 - 126 U/L ALBUMIN 2.8 (L) 3.5 - 5.0 g/dL BILIRUBIN, TOTAL 2.5 (H) 0.2 - 1.3 mg/dL TOTAL PROTEIN 6.4 6.3 - 8.2 g/dL eGFR 89.1 >60.0 mL/min/1.73m*2 CBC Collection Time: 09/10/23 6:22 AM Result Value Ref Range Auto WBC 8.2 3.6 - 10.7 10*3/uL RBC 4.05 3.8 - 5.20 10*6/uL Hemoglobin 9.1 (L) 11.7 - 16.0 g/dL Hematocrit 28.8 (L) 35.0 - 47.0 % MCV 71.2 (L) 80.0 - 98.0 fL MCH 22.5 (L) 26.0 - 34.0 pg MCHC 31.7 (L) 32.0 - 36.0 % RDW 21.4 (H) 11.5 - 14.5 % Platelets 79 (L) 140 - 440 10*3/uL MPV 8.9 7.4 - 12.4 fL Magnesium Collection Time: 09/10/23 6:22 AM Result Value Ref Range MAGNESIUM 1.7 1.6 - 2.3 mg/dL PROTIME/INR & PTT Collection Time: 09/10/23 12:18 PM Result Value Ref Range PROTHROMBIN TIME 17.0 (H) 9.0 - 12.0 s INR 1.7 (H) 0.9 - 1.1 APTT 40.2 (H) 20.0 - 30.5 s Comprehensive metabolic panel Collection Time: 09/11/23 12:30 AM Result Value Ref Range SODIUM 137 135 - 145 mmol/L POTASSIUM 3.4 (L) 3.5 - 5.1 mmol/L CHLORIDE 111 (H) 98 - 107 mmol/L CARBON DIOXIDE 17 (L) 22 - 30 mmol/L ANION GAP 9 3 - 13 mmol/L UREA NITROGEN 8 7 - 17 mg/dL CREATININE 0.73 0.52 - 1.04 mg/dL GLUCOSE 76 70 - 100 mg/dL CALCIUM 8.5 8.4 - 10.4 mg/dL AST (SGOT) 98 (H) 15 - 46 U/L ALT 52 (H) 0 - 34 U/L ALKALINE PHOSPHATASE 107 38 - 126 U/L ALBUMIN 3.3 (L) 3.5 - 5.0 g/dL BILIRUBIN, TOTAL 2.3 (H) 0.2 - 1.3 mg/dL TOTAL PROTEIN 6.8 6.3 - 8.2 g/dL eGFR >90.0 >60.0 mL/min/1.73m*2 Ammonia Collection Time: 09/11/23 12:30 AM Result Value Ref Range AMMONIA 65 (H) 9 - 30 umol/L CBC auto differential Collection Time: 09/11/23 12:30 AM Result Value Ref Range Auto WBC 7.9 3.6 - 10.7 10*3/uL RBC 3.80 3.8 - 5.20 10*6/uL Hemoglobin 8.6 (L) 11.7 - 16.0 g/dL Hematocrit 27.4 (L) 35.0 - 47.0 % MCV 72.2 (L) 80.0 - 98.0 fL MCH 22.5 (L) 26.0 - 34.0 pg MCHC 31.2 (L) 32.0 - 36.0 % RDW 21.6 (H) 11.5 - 14.5 % Platelets 61 (L) 140 - 440 10*3/uL MPV 8.5 7.4 - 12.4 fL nRBC 0.0 0.0 - 2.0 /100 WBCs Neutrophils Relative 63.6 40.0 - 80.0 % Lymphocytes Relative 20.6 20.0 - 40.0 % Monocytes Relative 10.9 (H) 2.0 - 10.0 % Eosinophils Relative 4.4 1.0 - 6.0 % Basophils Relative 0.5 0.0 - 2.0 % Neutrophils Absolute 5.0 1.8 - 7.0 10*3/uL Lymphocytes Absolute 1.6 1.0 - 4.3 10*3/uL Monocytes Absolute 0.9 (H) 0.0 - 0.8 10*3/uL Eosinophils Absolute 0.3 0.0 - 0.5 10*3/uL Basophils Absolute 0.0 0.0 - 0.2 10*3/uL Bilirubin, direct Collection Time: 09/11/23 12:30 AM Result Value Ref Range BILIRUBIN, DIRECT 0.0 0.0 - 0.3 mg/dL MEDICATIONS Home Meds No current outpatient medications Scheduled Inpatient Meds desvenlafaxine, 100 mg, Oral, Daily doxepin, 10 mg, Oral, Nightly gabapentin, 100 mg, Oral, BID influenza, 0.5 mL, IntraMUSCular, Once lactulose, 20 g, Oral, TID Or lactulose (Chronulac) 200 g in sterile water 1,000 mL enema, 1 enema, Rectal, TID pantoprazole (ProtoNix) 40 mg in sodium chloride (PF) 0.9 % 10 mL injection, 40 mg, IntraVENous, qAM AC traZODone, 100 mg, Oral, Nightly PRN Inpatient Meds PRN medications: acetaminophen OR acetaminophen, cloNIDine, dicyclomine, melatonin, morphine sulfate, nicotine, nicotine polacrilex, ondansetron ODT OR ondansetron, oxyCODONE OR oxyCODONE Continuous Inpatient Infusions None ASSESSMENT & PLAN Severe polysubstance use disorder Although she has an extensive history of abusing numerous drugs, she is only using THC, cigarettes and methamphetamines sporadically in the last month. She is not having any major drug withdrawal besides from nicotine. No reason for a tramadol taper now - will discontinue OARRS reviewed - gabapentin already restarted She does have oxy ordered prn for pain - however opioids may make SBO worse so I recommend discontinuing opioids. Nicotine patch and lozenge ordered If she wishes to pursue a drug treatment she is welcome to contact our department as an outpatient and I told her that; I will place contact information in her chart SBO Cirrhosis with trace ascites Mgmt per IM and surgery Disposition: Per IM. Signing off. I reviewed the patient's medical record, and reviewed test results. I educated and then counseled the patient on any substance use disorder or chemical dependency related issues. This included a face to face evaluation and physical examination, and coordinating care on a substance use disorder treatment plan as well as documenting clinical information on the day of visit. documented in this encounter [facility] 09-11-2023 Nurse Note Pt was found wandering the hospital by security, confused. Pt brought back by security and she said she was going outside to smoke. She was very upset that she could not have a smoke. Pt threatened to punch someone in the face. Pt is confused. [facility] 09-11-2023 Nurse Note Pt was found wandering the hospital by security, confused. Pt brought back by security and she said she was going outside to smoke. She was very upset that she could not have a smoke. Pt threatened to punch someone in the face. Pt is confused. documented in this encounter [facility] 09-10-2023 Note Attending History an d Physical Admit Date: 09/09/2023 PCP: No primary care provider on file. CHIEF COMPLAINT: Worsening Abdominal pain x1 day Reason for Admission: Increased ascites, hyperammonemia, concern for pSBO History Obtained From: patient, EMR HISTORY OF PRESENT ILLNESS: Carolina is a 47 y.o. female with past medical history below who presents with chief complaint listed above. Pt Hx significant for cirrhosis d/t Hep C, GERD. Pt states woke up this AM w/ acute worsening of her chronic abdominal pain. Pt denies any aggravating/alleviating factors - states she has had little PO intake today, denies N/V. Unable to localize pain, gestures to entirety of abdomen when I ask where specifically she has pain. Initial ED workup noted Ammonia at 106, Elevation of hepatic enzymes. CO2 at 19. Hgb at 10.4. Troponin WNL at <0.012. UAcontaminated however no showing indication of infection. Imaging notes large volumes ascites, possible proximal small bowel dilation concerning for SBO. Will admit for further evaluation and management. - CXR Lungs show no significant consolidation. No pleural effusion or pneumothorax. No vascular congestion. Heart size normal. - CT Abd/Pelvis 1. Findings concerning for small bowel obstruction including loops of dilated (up to 5 cm) loops of jejunum in the left upper quadrant, which appear to gradually transition to more normal caliber bowel. No vascular pedicle twisting identified. No bowel wall pneumatosis. 2. Large amount of ascites. 3. Cirrhotic appearing liver and splenomegaly. 4. Innumerable conspicuous but nonenlarged central mesenteric lymph nodes. Past Medical History: History reviewed. No pertinent past medical history. Past Surgical History: History reviewed. No pertinent surgical history. Social History: Social History Socioeconomic History Marital status: Spouse name: Not on file Number of children: Not on file Years of education: Not on file Highest education level: Not on file Occupational History Not on file Tobacco Use Smoking status: Not on file Smokeless tobacco: Not on file Substance and Sexual Activity Alcohol use: Not on file Drug use: Not on file Sexual activity: Not on file Other Topics Concern Not on file Social History Narrative Not on file Social Determinants of Health Financial Resource Strain: Not on file Food Insecurity: Not on file Transportation Needs: Not on file Physical Activity: Not on file Stress: Not on file Social Connections: Not on file Intimate Partner Violence: Not on file Housing Stability: Not on file Family History: No family history on file. Medications Prior to Admission: No current facility-administered medications on file prior to encounter. No current outpatient medications on file prior to encounter. Allergies: Allergies Allergen Reactions Aspirin UNCERTAIN =CHILDHOOD Bupropion Other reaction(s): Other: See Comments, Other: See Comments seizures Codeine Hives and Rash Prednisone Rash REVIEW OF SYSTEMS: As documented in HPI Vitals: BP 121/84 (BP Location: Right arm, Patient Position: Sitting) Pulse 73 Temp 37.3 ?C (99.2 ?F) (Temporal) Resp 13 SpO2 98% Pulse Ox: SpO2 Av.4 % Min: 98 % Max: 100 % Supplemental O2: PHYSICAL EXAM: Physical Exam Constitutional: General: She is awake. Comments: Somewhat slowed speech, but clear and coherent. Poor historian HENT: Head: Normocephalic and atraumatic. Eyes: General: Vision grossly intact. Gaze aligned appropriately. Extraocular Movements: Extraocular movements intact. Pupils: Pupils are equal, round, and reactive to light. Cardiovascular: Rate and Rhythm: Normal rate and regular rhythm. Pulmonary: Breath sounds: Normal breath sounds. No wheezing, rhonchi or rales. Abdominal: General: There is distension. Palpations: Abdomen is soft. Tenderness: There is generalized abdominal tenderness. Comments: Faint, occasional bowel sounds x4 Skin: General: Skin is warm and dry. Neurological: General: No focal deficit present. Mental Status: She is alert. She is disoriented. Psychiatric: Behavior: Behavior is cooperative. DATA: CBC: Recent Labs 09/09/231847 WBC 9.4 RBC 4.56 HGB 10.4* HCT 32.4* MCV 71.1* RDW 21.6* PLT 95* BMP: Recent Labs 09/09/231847 NA 136 K 4.3 CL 109* CO2 19* BUN 7 CREATININE 0.73 GLUCOSE 139* CALCIUM 8.7 ANIONGAP 8 LIVER PROFILE: Recent Labs 09/09/231847 AST 124* ALT 59* BILITOT 2.7* ALKPHOS 149* PROT 7.2 PT/INR: No results for input(s): PROTIME , INR in the last 72 hours. CARDIAC ENZYMES: Recent Labs 09/09/23 1848 09/09/23 2205 09/10/23 0105 TROPONINI <0.012 <0.012 <0.012 Procalcitonin: No results found for: PROCAL Urine Culture: No results found for this or any previous visit. COVID-19 PCR: No results for input(s): COVID19 in the last 72 hours. I revie (more content not included)... [facility] 09-10-2023 History and physical note Images from the original note were not included. Attending History and Physical Admit Date: 09/09/2023 PCP: No primary care provider on file. CHIEF COMPLAINT: Worsening Abdominal pain x1 day Reason for Admission: Increased ascites, hyperammonemia, concern for pSBO History Obtained From: patient, EMR HISTORY OF PRESENT ILLNESS: Carolina is a 47 y.o. female with past medical history below who presents with chief complaint listed above. Pt Hx significant for cirrhosis d/t Hep C, GERD. Pt states woke up this AM w/ acute worsening of her chronic abdominal pain. Pt denies any aggravating/alleviating factors - states she has had little PO intake today, denies N/V. Unable to localize pain, gestures to entirety of abdomen when I ask where specifically she has pain. Initial ED workup noted Ammonia at 106, Elevation of hepatic enzymes. CO2 at 19. Hgb at 10.4. Troponin WNL at <0.012. UA contaminated however no showing indication of infection. Imaging notes large volumes ascites, possible proximal small bowel dilation concerning for SBO. Will admit for further evaluation and management. - CXR Lungs show no significant consolidation. No pleural effusion or pneumothorax. No vascular congestion. Heart size normal. - CT Abd/Pelvis 1. Findings concerning for small bowel obstruction including loops of dilated (up to 5 cm) loops of jejunum in the left upper quadrant, which appear to gradually transition to more normal caliber bowel. No vascular pedicle twisting identified. No bowel wall pneumatosis. 2. Large amount of ascites. 3. Cirrhotic appearing liver and splenomegaly. 4. Innumerable conspicuous but nonenlarged central mesenteric lymph nodes. Past Medical History: History reviewed. No pertinent past medical history. Past Surgical History: History reviewed. No pertinent surgical history. Social History: Social History Socioeconomic History Marital status: Spouse name: Not on file Number of children: Not on file Years of education: Not on file Highest education level: Not on file Occupational History Not on file Tobacco Use Smoking status: Not on file Smokeless tobacco: Not on file Substance and Sexual Activity Alcohol use: Not on file Drug use: Not on file Sexual activity: Not on file Other Topics Concern Not on file Social History Narrative Not on file Social Determinants of Health Financial Resource Strain: Not on file Food Insecurity: Not on file Transportation Needs: Not on file Physical Activity: Not on file Stress: Not on file Social Connections: Not on file Intimate Partner Violence: Not on file Housing Stability: Not on file Family History: No family history on file. Medications Prior to Admission: No current facility-administered medications on file prior to encounter. No current outpatient medications on file prior to encounter. Allergies: Allergies Allergen Reactions Aspirin UNCERTAIN =CHILDHOOD Bupropion Other reaction(s): Other: See Comments, Other: See Comments seizures Codeine Hives and Rash Prednisone Rash REVIEW OF SYSTEMS: As documented in HPI Vitals: BP 121/84 (BP Location: Right arm, Patient Position: Sitting) Pulse 73 Temp 37.3 C (99.2 F) (Temporal) Resp 13 SpO2 98% Pulse Ox: SpO2 Av.4 % Min: 98 % Max: 100 % Supplemental O2: PHYSICAL EXAM: Physical Exam Constitutional: General: She is awake. Comments: Somewhat slowed speech, but clear and coherent. Poor historian HENT: Head: Normocephalic and atraumatic. Eyes: General: Vision grossly intact. Gaze aligned appropriately. Extraocular Movements: Extraocular movements intact. Pupils: Pupils are equal, round, and reactive to light. Cardiovascular: Rate and Rhythm: Normal rate and regular rhythm. Pulmonary: Breath sounds: Normal breath sounds. No wheezing, rhonchi or rales. Abdominal: General: There is distension. Palpations: Abdomen is soft. Tenderness: There is generalized abdominal tenderness. Comments: Faint, occasional bowel sounds x4 Skin: General: Skin is warm and dry. Neurological: General: No focal deficit present. Mental Status: She is alert. She is disoriented. Psychiatric: Behavior: Behavior is cooperative. DATA: CBC: Recent Labs 09/09/231847 WBC 9.4 RBC 4.56 HGB 10.4* HCT 32.4* MCV 71.1* RDW 21.6* PLT 95* BMP: Recent Labs 09/09/231847 NA 136 K 4.3 CL 109* CO2 19* BUN 7 CREATININE 0.73 GLUCOSE 139* CALCIUM 8.7 ANIONGAP 8 LIVER PROFILE: Recent Labs 09/09/231847 AST 124* ALT 59* BILITOT 2.7* ALKPHOS 149* PROT 7.2 PT/INR: No results for input(s): PROTIME , INR in the last 72 hours. CARDIAC ENZYMES: Recent Labs 09/09/23 1848 09/09/23 2205 09/10/23 0105 TROPONINI <0.012 <0.012 <0.012 Procalcitonin: No results found for: PROCAL Urine Culture: No results found for this or any previous visit. COVID-19 PCR: No results for input(s): COVID19 in the last 72 hours. I reviewed: [x] laboratory results [x] radiographic results At the time of today's encounter. Pt was advised of the results. Data: Assessment Discussed management with the ED provider and agree with hospitalization. Acute, acute on chronic, unstable/uncontrolled chronic problems/diagnoses: Abdominal pain, concern for partial small bowel obstruction - Pt NPO w/ Meds, Ice Chips - IVF hydration - General Surgery consultation - PRN analgesia if BP tolerates 2. Hypotension - Supplementing low albumin w/ 50g IV Gentle IVF hydration 3. Ascites - Order placed for US guided paracentesis 4. Elevated ammonia level - PO Lactulose increased to 30mg TID. If remains NPO, Pt understands that I have also ordered 200mg Lactulose enema TID - Recheck level in AM Stable chronic problems affecting care, new non-acute diagnoses: Hepatic cirrhosis - Pt follows w/ GI specialist Dr. Porras. States has recently had her medications changed however cannot remember them. Remind Pt to contact family for med list in AM Plan As a result of the above findings & factors, the following mgmt was pursued: - am labs, replace lytes prn - PT/OT/CM/SW - delirium precautions: increase activity and limit nighttime disturbances - DVT prophylaxis: SCDs and encourage ambulation Complexity: Chronic illness with mild to moderate exacerbation, progression, or side effect of tx (MOD). Risk: Admission to hospital-level care was considered or occurred (HIGH). Advance Directive: FULL CODE Anticipated Discharge - Date - TBD - Location - TBD Total time spent (which include face to face and non face to face encounters) : 65 minutes. Extended Emergency Contact Information Primary Emergency Contact: John Bonilla Relation: Spouse Cindi Smith MD Division of Hospitalist Medicine Inpatient Medical Services/[facility] [place] [facility] Work Phone: 09-10-2023 History and physical note Images from the original note were not included. Attending History and Physical Admit Date: 09/09/2023 PCP: No primary care provider on file. CHIEF COMPLAINT: Worsening Abdominal pain x1 day Reason for Admission: Increased ascites, hyperammonemia, concern for pSBO History Obtained From: patient, EMR HISTORY OF PRESENT ILLNESS: Carolina is a 47 y.o. female with past medical history below who presents with chief complaint listed above. Pt Hx significant for cirrhosis d/t Hep C, GERD. Pt states woke up this AM w/ acute worsening of her chronic abdominal pain. Pt denies any aggravating/alleviating factors - states she has had little PO intake today, denies N/V. Unable to localize pain, gestures to entirety of abdomen when I ask where specifically she has pain. Initial ED workup noted Ammonia at 106, Elevation of hepatic enzymes. CO2 at 19. Hgb at 10.4. Troponin WNL at <0.012. UA contaminated however no showing indication of infection. Imaging notes large volumes ascites, possible proximal small bowel dilation concerning for SBO. Will admit for further evaluation and management. - CXR Lungs show no significant consolidation. No pleural effusion or pneumothorax. No vascular congestion. Heart size normal. - CT Abd/Pelvis 1. Findings concerning for small bowel obstruction including loops of dilated (up to 5 cm) loops of jejunum in the left upper quadrant, which appear to gradually transition to more normal caliber bowel. No vascular pedicle twisting identified. No bowel wall pneumatosis. 2. Large amount of ascites. 3. Cirrhotic appearing liver and splenomegaly. 4. Innumerable conspicuous but nonenlarged central mesenteric lymph nodes. Past Medical History: History reviewed. No pertinent past medical history. Past Surgical History: History reviewed. No pertinent surgical history. Social History: Social History Socioeconomic History Marital status: Spouse name: Not on file Number of children: Not on file Years of education: Not on file Highest education level: Not on file Occupational History Not on file Tobacco Use Smoking status: Not on file Smokeless tobacco: Not on file Substance and Sexual Activity Alcohol use: Not on file Drug use: Not on file Sexual activity: Not on file Other Topics Concern Not on file Social History Narrative Not on file Social Determinants of Health Financial Resource Strain: Not on file Food Insecurity: Not on file Transportation Needs: Not on file Physical Activity: Not on file Stress: Not on file Social Connections: Not on file Intimate Partner Violence: Not on file Housing Stability: Not on file Family History: No family history on file. Medications Prior to Admission: No current facility-administered medications on file prior to encounter. No current outpatient medications on file prior to encounter. Allergies: Allergies Allergen Reactions Aspirin UNCERTAIN =CHILDHOOD Bupropion Other reaction(s): Other: See Comments, Other: See Comments seizures Codeine Hives and Rash Prednisone Rash REVIEW OF SYSTEMS: As documented in HPI Vitals: BP 121/84 (BP Location: Right arm, Patient Position: Sitting) Pulse 73 Temp 37.3 C (99.2 F) (Temporal) Resp 13 SpO2 98% Pulse Ox: SpO2 Av.4 % Min: 98 % Max: 100 % Supplemental O2: PHYSICAL EXAM: Physical Exam Constitutional: General: She is awake. Comments: Somewhat slowed speech, but clear and coherent. Poor historian HENT: Head: Normocephalic and atraumatic. Eyes: General: Vision grossly intact. Gaze aligned appropriately. Extraocular Movements: Extraocular movements intact. Pupils: Pupils are equal, round, and reactive to light. Cardiovascular: Rate and Rhythm: Normal rate and regular rhythm. Pulmonary: Breath sounds: Normal breath sounds. No wheezing, rhonchi or rales. Abdominal: General: There is distension. Palpations: Abdomen is soft. Tenderness: There is generalized abdominal tenderness. Comments: Faint, occasional bowel sounds x4 Skin: General: Skin is warm and dry. Neurological: General: No focal deficit present. Mental Status: She is alert. She is disoriented. Psychiatric: Behavior: Behavior is cooperative. DATA: CBC: Recent Labs 09/09/231847 WBC 9.4 RBC 4.56 HGB 10.4* HCT 32.4* MCV 71.1* RDW 21.6* PLT 95* BMP: Recent Labs 09/09/231847 NA 136 K 4.3 CL 109* CO2 19* BUN 7 CREATININE 0.73 GLUCOSE 139* CALCIUM 8.7 ANIONGAP 8 LIVER PROFILE: Recent Labs 09/09/231847 AST 124* ALT 59* BILITOT 2.7* ALKPHOS 149* PROT 7.2 PT/INR: No results for input(s): PROTIME , INR in the last 72 hours. CARDIAC ENZYMES: Recent Labs 09/09/23 1848 09/09/23 2205 09/10/23 0105 TROPONINI <0.012 <0.012 <0.012 Procalcitonin: No results found for: PROCAL Urine Culture: No results found for this or any previous visit. COVID-19 PCR: No results for input(s): COVID19 in the last 72 hours. I reviewed: [x] laboratory results [x] radiographic results At the time of today's encounter. Pt was advised of the results. Data: Assessment Discussed management with the ED provider and agree with hospitalization. Acute, acute on chronic, unstable/uncontrolled chronic problems/diagnoses: Abdominal pain, concern for partial small bowel obstruction - Pt NPO w/ Meds, Ice Chips - IVF hydration - General Surgery consultation - PRN analgesia if BP tolerates 2. Hypotension - Supplementing low albumin w/ 50g IV Gentle IVF hydration 3. Ascites - Order placed for US guided paracentesis 4. Elevated ammonia level - PO Lactulose increased to 30mg TID. If remains NPO, Pt understands that I have also ordered 200mg Lactulose enema TID - Recheck level in AM Stable chronic problems affecting care, new non-acute diagnoses: Hepatic cirrhosis - Pt follows w/ GI specialist Dr. Porras. States has recently had her medications changed however cannot remember them. Remind Pt to contact family for med list in AM Plan As a result of the above findings & factors, the following mgmt was pursued: - am labs, replace lytes prn - PT/OT/CM/SW - delirium precautions: increase activity and limit nighttime disturbances - DVT prophylaxis: SCDs and encourage ambulation Complexity: Chronic illness with mild to moderate exacerbation, progression, or side effect of tx (MOD). Risk: Admission to hospital-level care was considered or occurred (HIGH). Advance Directive: FULL CODE Anticipated Discharge - Date - TBD - Location - TBD Total time spent (which include face to face and non face to face encounters) : 65 minutes. Extended Emergency Contact Information Primary Emergency Contact: John Bonilla Relation: Spouse Cindi Smith MD Division of Hospitalist Medicine Inpatient Medical Services/[facility] [place] documented in this encounter [facility] 09-10-2023 Emergency department Note Report given to 7W at this time. Transport en route. Laura Antony RN 09/10/23 050 [facility] 09-10-2023 Emergency department Note Report given to 7W at this time. Transport en route. Laura Antony RN 09/10/23 050 They are here now to transport the patient to [facility] 09/10/23 0447 [facility] ETA 0430 RN will call report in a few :) Afua [facility] 09/10/23 0432 Electronically signed by [facility] at 09/10/2023 4:32 AM EST EMERGENCY DEPARTMENT ENCOUNTER Pt Name: Carolina Bonilla Birthdate 1975 Date of evaluation: 09/09/2023 ED Provider: JOSE Collins CHIEF COMPLAINT Chief Complaint Patient presents with Abdominal Pain HISTORY OF PRESENT ILLNESS (Location/Symptom, Timing/Onset, Context/Setting, Quality, Duration, Modifying Factors, Severity) Note limiting factors. I wore appropriate PPE for the entirety of this encounter. HPI Carolina Bonilla is a 47 y.o. female who presents to the emergency department for evaluation of abdominal pain, nausea, vomiting that started this morning. Patient reports that she is having diffuse abdominal pain with no localization. Denies any previous abdominal surgeries. Reports that she is able to tolerate liquid oral intake. States that she has not been able to eat anything today. States that she is having some nausea but no episodes of vomiting. Reports having some increasing shortness of breath as well. Denies any chest pain. Reports that she does smoke tobacco and has a chronic cough. Denies any nasal congestion. Denies any fever or chills. Denies any dysuria, frequency, urgency, hematuria. Denies any changes with bowel movements. Patient's family is bedside and states that the patient seems off . When this was further questioning patient's family states that she is seeming off because she is having abdominal pain and complaining a lot and that is unlike her. They deny any confusion or changes in her mental status. Nursing Notes were reviewed. Limitations to history: None Outside historians: None REVIEW OF SYSTEMS Review of Systems 7 systems reviewed, positives and pertinent negatives as per HPI. All other systems were reviewed and are negative. PAST MEDICAL HISTORY History reviewed. No pertinent past medical history. SURGICAL HISTORY History reviewed. No pertinent surgical history. CURRENT MEDICATIONS Previous Medications No medications on file ALLERGIES Aspirin, Bupropion, Codeine, and Prednisone FAMILY HISTORY No family history on file. SOCIAL HISTORY Social History Socioeconomic History Marital status: SCREENINGS PHYSICAL EXAM ED Triage Vitals [09/09/23 1827] Temp Heart Rate Resp BP 37.3 C (99.2 F) 74 18 (!) 114/90 SpO2 Temp Source Heart Rate Source Patient Position 100 % Temporal Monitor -- BP Location FiO2 (%) -- -- Physical Exam Vitals and nursing note reviewed. Constitutional: General: She is not in acute distress. Appearance: She is not toxic-appearing. Comments: 47-year-old female who does not appear to be in acute distress or discomfort. HENT: Head: Normocephalic and atraumatic. Mouth/Throat: Mouth: Mucous membranes are moist. Pharynx: Oropharynx is clear. Cardiovascular: Rate and Rhythm: Normal rate and regular rhythm. Heart sounds: Normal heart sounds. Pulmonary: Effort: Pulmonary effort is normal. Breath sounds: Normal breath sounds. Abdominal: Comments: Protuberant, distended abdomen. Mild diffuse tenderness to palpation of abdomen with no specific localization. No guarding or rebound tenderness noted. Skin: General: Skin is warm and dry. Capillary Refill: Capillary refill takes less than 2 seconds. Neurological: General: No focal deficit present. Mental Status: She is alert and oriented to person, place, and time. Psychiatric: Mood and Affect: Mood normal. DIAGNOSTIC RESULTS RADIOLOGY (Per Emergency Physician): Interpretation per the Radiologist below, if available at the time of this note: CT abdomen pelvis w contrast Final Result 1. Findings concerning for small bowel obstruction including loops of dilated (up to 5 cm) loops of jejunum in the left upper quadrant, which appear to gradually transition to more normal caliber bowel. No vascular pedicle twisting identified. No bowel wall pneumatosis. 2. Large amount of ascites. 3. Cirrhotic appearing liver and splenomegaly. 4. Innumerable conspicuous but nonenlarged central mesenteric lymph nodes. Report Dictated on Electronically Signed By: Scot Shah MD Electronically Signed Date/Time: 09/09/2023 8:28 PM EST XR chest 1 view Final Result 1. No acute finding. Report Dictated on Electronically Signed By: James Will MD Electronically Signed Date/Time: 09/09/2023 6:48 PM EST LABS: Labs Reviewed CBC WITH AUTO DIFFERENTIAL - Abnormal Result Value Auto WBC 9.4 RBC 4.56 Hemoglobin 10.4 (*) Hematocrit 32.4 (*) MCV 71.1 (*) MCH 22.8 (*) MCHC 32.0 RDW 21.6 (*) Platelets 95 (*) MPV 9.2 nRBC 0.2 BASIC METABOLIC PANEL - Abnormal SODIUM 136 POTASSIUM 4.3 CHLORIDE 109 (*) CARBON DIOXIDE 19 (*) UREA NITROGEN 7 CREATININE 0.73 GLUCOSE 139 (*) CALCIUM 8.7 ANION GAP 8 eGFR >90.0 Narrative: CHEMISTRY SPECIMEN SLIGHTLY HEMOLYZED; INTERPRET WITH CAUTION! HEPATIC FUNCTION PANEL - Abnormal BILIRUBIN, TOTAL 2.7 (*) BILIRUBIN, DIRECT 0.0 ALKALINE PHOSPHATASE 149 (*) AST (SGOT) 124 (*) ALT 59 (*) ALBUMIN 3.2 (*) TOTAL PROTEIN 7.2 Narrative: CHEMISTRY SPECIMEN SLIGHTLY HEMOLYZED; INTERPRET WITH CAUTION! COMPLETE URINALYSIS - Abnormal Color, Urine Yellow Clarity, Urine Clear pH, Urine 6.5 Leukocytes, Urine Negative Nitrite, Urine Negative Protein, Urine Negative Glucose, Urine Normal Bilirubin, Urine Negative Ketones, Urine Negative Urobilinogen, Urine Normal Blood, Urine 0.2 (*) RBC, Urine 3-5 (*) WBC, Urine 0-2 Squamous Epithelial, Urine 6-10 (*) Non-Squamous Epithalial Cells, Urine 0-2 (*) Bacteria, Urine Moderate (*) Mucus, Urine Few SPECIFIC GRAVITY OF URINE (NUMERIC) 1.010 AMMONIA - Abnormal AMMONIA 106 (*) MANUAL DIFFERENTIAL - Abnormal Adjusted WBC 9.4 Neutrophils % 67 Lymphocytes % 21 Monocytes % 7 Eosinophils % 4 Basophils % 1 Absolute Neutrophil Count 6.3 Lymphocytes Absolute 2.0 Monocytes Absolute 0.7 Eosinophils Absolute 0.4 Basophils Absolute 0.1 Anisocytosis Moderate (*) Microcytes Slight (*) Hypochromia Slight (*) Ovalocytes Slight (*) WBC Morphology Normal PLT Morphology Normal Total Counted 100 Neutrophils Manual 67 Lymphocytes Manual 21 Monocytes Manual 7 Eosinophils Manual 4 (*) Basophils Manual 1 Differential Method Value: Automated differential reported after manual slide review LIPASE - Normal LIPASE 188 TROPONIN, WITH SERIAL REFLEX - Normal TROPONIN I <0.012 Narrative: Patients with high levels of Biotin oral intake (ie >5 mg/day) may have falsely decreased Troponin levels. SARS-COV-2, FLU A/B, AND RSV COMBO COMPLETE URINALYSIS WITH REFLEX TO CULTURE Narrative: The following orders were created for panel order Urinalysis complete with reflex to Culture. Procedure Abnormality Status --------- ------ Complete Urinalysis[[id number]] Abnormal Final result Please view results for these tests on the individual orders. HCG QUALITATIVE URINE HCG,URINE QUAL Negative Narrative: is the most common reason for HCG in urine, although choriocarcinoma, hydatidiform mole, and certain nontrophoblastic malignancies also result in detectable urinary HCG levels. Sensitivity = 20mIU/mL. TROPONIN I TROPONIN I All other labs were within normal range or not returned as of this dictation. EMERGENCY DEPARTMENT COURSE and DIFFERENTIAL DIAGNOSIS/MDM: Vitals: Vitals: 09/09/23 1827 09/09/232037 BP: (!) 114/90 124/66 Pulse: 74 82 Resp: 18 15 Temp: 37.3 C (99.2 F) TempSrc: Temporal SpO2: 100% 100% Medications sodium chloride 0.9 % bolus 1,000 mL (1,000 mL IntraVENous New Bag 09/09/232044) ondansetron (Zofran) injection 4 mg (4 mg IntraVENous Given 09/09/231944) iopamidol (Isovue-370) 76 % injection 75 mL (75 mL IntraVENous Given 09/09/232009) morphine injection 4 mg (4 mg IntraVENous Given 09/09/232043) ED care was supervised by Dr. Macdonald who independently examined and evaluated the patient. Please see their attestation note for further details. In brief, Carolina Bonilla is a 47 y.o. female who presented to the emergency department for evaluation of abdominal pain, nausea, vomiting that started this morning. See HPI further details. Nursing notes and medical records reviewed, no recent visits or studies correlating patient's presenting symptoms. Differential considerations included hepatic encephalopathy, cirrhosis, cholecystitis, cholelithiasis, pancreatitis, gastritis, colitis, diverticulitis, appendicitis, acute cystitis, pyelonephritis. Initial medical management includes Zofran given initially. Initial workup includes CBC, BMP, hepatic function, lipase, urinalysis, urine hCG, troponin, respiratory panel, ammonia, EKG, chest x-ray, CT abdomen pelvis. Lab workup results CBC shows no signs of leukocytosis. BMP shows no significant electrolyte abnormalities. Hepatic function panel does show transaminitis with alk phos at 149 AST 124 ALT at 59. Bilirubin total is mildly elevated 2.7. Ammonia is elevated at 106 although patient is A&O x 4 and answering questions appropriately. Imaging results per radiology CT abdomen pelvis shows findings that are concerning for small bowel obstruction. Large amount of ascites noted. Chest x-ray shows no acute cardiopulmonary abnormalities. Chronic conditions contributing to patients presentation include chronic hepatitis C with cirrhosis. Social determinants to care: None noted. Consulted general surgery, Dr. Bobo. He recommended bowel rest, n.p.o. Dr. Bobo recommended against NG tube placement as patient is a known cirrhosis patient and concern for esophageal varices. Patient will be admitted to the medical team for bowel rest, further management of small bowel obstruction, general surgery consultation. Diagnosis (mild, severe, acute, chronic, stable, unstable) small bowel obstruction. Disposition admission to medical service at [facility]. [facility] unfortunately does not have the capacity to perform paracentesis if deemed necessary. Given this illness provider would like patient be transferred to [facility] for small bowel obstruction management, general surgery consultation. Discussed with Dr. Smith who accepted patient for transfer. Patient will be transferred to [facility]. PROCEDURES: Unless otherwise noted below, none Procedures FINAL IMPRESSION 1. Small bowel obstruction (HCC) DISPOSITION Admit 09/09/2023 08:43:59 PM PATIENT REFERRED TO: No follow-up provider specified. DISCHARGE MEDICATIONS: New Prescriptions No medications on file (Comment: Please note this report has been produced using speech recognition software and may contain errors related to that system including errors in grammar, punctuation, and spelling, as well as words and phrases that may be inappropriate. If there are any questions or concerns please feel free to contact the dictating provider for clarification.) JOSE Collins (electronically signed) Emergency Medicine Provider JOSE Collins 09/09/232117 Emergency Department Encounter [facility] ED Patient: Carolina Bonilla : 1975 Date of Evaluation: 09/09/2023 ED Supervising Physician: Lenny Macdonald MD I independently examined and evaluated Carolina Bonilla. This will serve as my Supervisory note as the construction lineman of record and shared attestation. I did perform a substantive portion of the visit including all aspects of the Medical Decision Making. I wore appropriate PPE for the entirety of this encounter. In brief, Carolina Bonilla is a 47 y.o. female that presents to the emergency department with concern for abdominal pain. Patient is somewhat of a poor historian and family is also providing history. States that she always has some level of abdominal pain although has been feeling this since this morning. She states that it is in the same place that it always is denies any vomiting although does endorse some nausea. No diarrhea may be some blood in her urine. Has had several abdominal procedures more so for evaluation of her cirrhosis rather than any organ removal. She does endorse some intermittent shortness of breath although does endorse smoking. Family noted this was a typical of her although is not acting confused at this time. Focused exam: Patient does not appear in any acute distress. Has a fluid wave on her abdomen although not tender and not rigid. Clear breath sounds bilaterally without wheezes or rails. Patient is alert and oriented x 4 somewhat slow to respond Brief ED course/MDM: EMERGENCY DEPARTMENT COURSE and DIFFERENTIAL DIAGNOSIS/MDM: Vitals: Vitals: 09/09/23 1827 BP: (!) 114/90 Pulse: 74 Resp: 18 Temp: 37.3 C (99.2 F) TempSrc: Temporal SpO2: 100% The patient presented with a chief complaint of abdominal pain. The differential diagnosis associated with this patient's presentation includes bowel obstruction, gallbladder pathology, appendicitis, urinary tract infection, ascites, pancreatitis. Our workup consisted of ordering/reviewing presents with concern as above. Vital signs are normal and stable. Patient does not appear in any acute distress abdomen is soft, nontender nondistended. Not a concerning examination by any means but does appear to have some ascites on exam less concern for SBP or an acute abdomen. Will obtain blood work, CT imaging for further evaluation of her symptoms. Will give nausea medications and reassess. Does not seem like an acute issue at least based on conversation with patient and family members although did have some acute worsening. Workup did not show any significant abnormality aside for elevated LFTs which seem consistent with patient's baseline cirrhosis. CT abdomen pelvis commented on large amount of ascites along with small bowel obstruction. Discussed with on-call surgery who recommended admission. After discussion with inpatient medicine team they recommend transfer to [facility] as they do not have IRP abilities over the weekend for paracentesis if required. Recommending bowel rest will be admitted Diagnoses as of 09/12/23 1459 Small bowel obstruction (HCC) Diagnostic tests considered but not performed: External records reviewed: Diagnostics interpreted by me: Discussions with other clinicians: Chronic conditions impacting care: Social determinants of health affecting care: ED Medications managed: Medications ondansetron (Zofran) injection 4 mg (has no administration in time range) Prescription drugs considered: Disposition and plan: Small bowel obstruction, ascites, admission All diagnostic, treatment, and disposition decisions were made by myself in conjunction with the Resident/CAMILLE. I also supervised lopez portions of any procedures performed by the Resident/CAMILLE. For all further details of the patient's emergency department visit, please see their documentation. (Comment: Please note this report has been produced using speech recognition software and may contain errors related to that system including errors in grammar, punctuation, and spelling, as well as words and phrases that may be inappropriate. If there are any questions or concerns please feel free to contact the dictating provider for clarification.) Lenny Macdonald MD Acute Care [facility] Lenny Macdonald MD 09/12/23 1500 Pt c/o abdominal pain that began this afternoon, states that she has hx of cirrhosis. Family states she seems off. documented in this encounter [facility] 09-10-2023 Emergency department Note They are here now to transport the patient to [facility] 09/10/23 0447 [facility] 09-10-2023 Emergency department Note [facility] ETA 0430 RN will call report in a few :) Afua [facility]do 09/10/23 0432 [facility] 09-09-2023 Emergency department Triage note Pt c/o abdominal pain that began this afternoon, states that she has hx of cirrhosis. Family states she seems off. [facility] 09-09-2023 Physician Emergency department Note EMERGENCY DEPARTMENT ENCOUNTER Pt Name: Carolina Bonilla Birthdate 1975 Date of evaluation: 09/09/2023 ED Provider: JOSE Collins CHIEF COMPLAINT Chief Complaint Patient presents with Abdominal Pain HISTORY OF PRESENT ILLNESS (Location/Symptom, Timing/Onset, Context/Setting, Quality, Duration, Modifying Factors, Severity) Note limiting factors. I wore appropriate PPE for the entirety of this encounter. HPI Carolina Bonilla is a 47 y.o. female who presents to the emergency department for evaluation of abdominal pain, nausea, vomiting that started this morning. Patient reports that she is having diffuse abdominal pain with no localization. Denies any previous abdominal surgeries. Reports that she is able to tolerate liquid oral intake. States that she has not been able to eat anything today. States that she is having some nausea but no episodes of vomiting. Reports having some increasing shortness of breath as well. Denies any chest pain. Reports that she does smoke tobacco and has a chronic cough. Denies any nasal congestion. Denies any fever or chills. Denies any dysuria, frequency, urgency, hematuria. Denies any changes with bowel movements. Patient's family is bedside and states that the patient seems off . When this was further questioning patient's family states that she is seeming off because she is having abdominal pain and complaining a lot and that is unlike her. They deny any confusion or changes in her mental status. Nursing Notes were reviewed. Limitations to history: None Outside historians: None REVIEW OF SYSTEMS Review of Systems 7 systems reviewed, positives and pertinent negatives as per HPI. All other systems were reviewed and are negative. PAST MEDICAL HISTORY History reviewed. No pertinent past medical history. SURGICAL HISTORY History reviewed. No pertinent surgical history. CURRENT MEDICATIONS Previous Medications No medications on file ALLERGIES Aspirin, Bupropion, Codeine, and Prednisone FAMILY HISTORY No family history on file. SOCIAL HISTORY Social History Socioeconomic History Marital status: SCREENINGS PHYSICAL EXAM ED Triage Vitals [09/09/23 1827] Temp Heart Rate Resp BP 37.3 C (99.2 F) 74 18 (!) 114/90 SpO2 Temp Source Heart Rate Source Patient Position 100 % Temporal Monitor -- BP Location FiO2 (%) -- -- Physical Exam Vitals and nursing note reviewed. Constitutional: General: She is not in acute distress. Appearance: She is not toxic-appearing. Comments: 47-year-old female who does not appear to be in acute distress or discomfort. HENT: Head: Normocephalic and atraumatic. Mouth/Throat: Mouth: Mucous membranes are moist. Pharynx: Oropharynx is clear. Cardiovascular: Rate and Rhythm: Normal rate and regular rhythm. Heart sounds: Normal heart sounds. Pulmonary: Effort: Pulmonary effort is normal. Breath sounds: Normal breath sounds. Abdominal: Comments: Protuberant, distended abdomen. Mild diffuse tenderness to palpation of abdomen with no specific localization. No guarding or rebound tenderness noted. Skin: General: Skin is warm and dry. Capillary Refill: Capillary refill takes less than 2 seconds. Neurological: General: No focal deficit present. Mental Status: She is alert and oriented to person, place, and time. Psychiatric: Mood and Affect: Mood normal. DIAGNOSTIC RESULTS RADIOLOGY (Per Emergency Physician): Interpretation per the Radiologist below, if available at the time of this note: CT abdomen pelvis w contrast Final Result 1. Findings concerning for small bowel obstruction including loops of dilated (up to 5 cm) loops of jejunum in the left upper quadrant, which appear to gradually transition to more normal caliber bowel. No vascular pedicle twisting identified. No bowel wall pneumatosis. 2. Large amount of ascites. 3. Cirrhotic appearing liver and splenomegaly. 4. Innumerable conspicuous but nonenlarged central mesenteric lymph nodes. Report Dictated on Electronically Signed By: Scot Shah MD Electronically Signed Date/Time: 09/09/2023 8:28 PM EST XR chest 1 view Final Result 1. No acute finding. Report Dictated on Electronically Signed By: James Will MD Electronically Signed Date/Time: 09/09/2023 6:48 PM EST LABS: Labs Reviewed CBC WITH AUTO DIFFERENTIAL - Abnormal Result Value Auto WBC 9.4 RBC 4.56 Hemoglobin 10.4 (*) Hematocrit 32.4 (*) MCV 71.1 (*) MCH 22.8 (*) MCHC 32.0 RDW 21.6 (*) Platelets 95 (*) MPV 9.2 nRBC 0.2 BASIC METABOLIC PANEL - Abnormal SODIUM 136 POTASSIUM 4.3 CHLORIDE 109 (*) CARBON DIOXIDE 19 (*) UREA NITROGEN 7 CREATININE 0.73 GLUCOSE 139 (*) CALCIUM 8.7 ANION GAP 8 eGFR >90.0 Narrative: CHEMISTRY SPECIMEN SLIGHTLY HEMOLYZED; INTERPRET WITH CAUTION! HEPATIC FUNCTION PANEL - Abnormal BILIRUBIN, TOTAL 2.7 (*) BILIRUBIN, DIRECT 0.0 ALKALINE PHOSPHATASE 149 (*) AST (SGOT) 124 (*) ALT 59 (*) ALBUMIN 3.2 (*) TOTAL PROTEIN 7.2 Narrative: CHEMISTRY SPECIMEN SLIGHTLY HEMOLYZED; INTERPRET WITH CAUTION! COMPLETE URINALYSIS - Abnormal Color, Urine Yellow Clarity, Urine Clear pH, Urine 6.5 Leukocytes, Urine Negative Nitrite, Urine Negative Protein, Urine Negative Glucose, Urine Normal Bilirubin, Urine Negative Ketones, Urine Negative Urobilinogen, Urine Normal Blood, Urine 0.2 (*) RBC, Urine 3-5 (*) WBC, Urine 0-2 Squamous Epithelial, Urine 6-10 (*) Non-Squamous Epithalial Cells, Urine 0-2 (*) Bacteria, Urine Moderate (*) Mucus, Urine Few SPECIFIC GRAVITY OF URINE (NUMERIC) 1.010 AMMONIA - Abnormal AMMONIA 106 (*) MANUAL DIFFERENTIAL - Abnormal Adjusted WBC 9.4 Neutrophils % 67 Lymphocytes % 21 Monocytes % 7 Eosinophils % 4 Basophils % 1 Absolute Neutrophil Count 6.3 Lymphocytes Absolute 2.0 Monocytes Absolute 0.7 Eosinophils Absolute 0.4 Basophils Absolute 0.1 Anisocytosis Moderate (*) Microcytes Slight (*) Hypochromia Slight (*) Ovalocytes Slight (*) WBC Morphology Normal PLT Morphology Normal Total Counted 100 Neutrophils Manual 67 Lymphocytes Manual 21 Monocytes Manual 7 Eosinophils Manual 4 (*) Basophils Manual 1 Differential Method Value: Automated differential reported after manual slide review LIPASE - Normal LIPASE 188 TROPONIN, WITH SERIAL REFLEX - Normal TROPONIN I <0.012 Narrative: Patients with high levels of Biotin oral intake (ie >5 mg/day) may have falsely decreased Troponin levels. SARS-COV-2, FLU A/B, AND RSV COMBO COMPLETE URINALYSIS WITH REFLEX TO CULTURE Narrative: The following orders were created for panel order Urinalysis complete with reflex to Culture. Procedure Abnormality Status --------- ------ Complete Urinalysis[[id number]] Abnormal Final result Please view results for these tests on the individual orders. HCG QUALITATIVE URINE HCG,URINE QUAL Negative Narrative: is the most common reason for HCG in urine, although choriocarcinoma, hydatidiform mole, and certain nontrophoblastic malignancies also result in detectable urinary HCG levels. Sensitivity = 20mIU/mL. TROPONIN I TROPONIN I All other labs were within normal range or not returned as of this dictation. EMERGENCY DEPARTMENT COURSE and DIFFERENTIAL DIAGNOSIS/MDM: Vitals: Vitals: 09/09/23 1827 09/09/232037 BP: (!) 114/90 124/66 Pulse: 74 82 Resp: 18 15 Temp: 37.3 C (99.2 F) TempSrc: Temporal SpO2: 100% 100% Medications sodium chloride 0.9 % bolus 1,000 mL (1,000 mL IntraVENous New Bag 09/09/232044) ondansetron (Zofran) injection 4 mg (4 mg IntraVENous Given 09/09/231944) iopamidol (Isovue-370) 76 % injection 75 mL (75 mL IntraVENous Given 09/09/232009) morphine injection 4 mg (4 mg IntraVENous Given 09/09/232043) ED care was supervised by Dr. Macdonald who independently examined and evaluated the patient. Please see their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 cao Referred To Contact [facility] Diagnoses Encounter for screening mammogram for breast cancer Procedures JEANETH SCREENING SCREENING MAMMOGRAPHY BI 2-[place] [address] [place] [address] [facility] [address] [place] [address] Referral ID Status Reason Start Date Expiration Date V isits Requested Visits Authorized [id number] Closed Auto-Generate d Referral 03/24/2022 04/23/2023 1 1 T [facility] for visit Narrative* Diagnostic Procedure Only (Routine) - Closed Specialty Diagnoses / Procedures Referred By Marivel cao Referred To Contact [facility] Diagnoses Encounter for screening mammogram for breast cancer Procedures JEANETH SCREENING SCREENING MAMMOGRAPHY BI 2-VIEW BREAST INC Dacia Rice MD [address] [place] [address] [facility] [address] [place] [address] Referral ID Status Reason Start Date Expiration Date V isits Requested Visits Authorized [id number] Closed Auto-Generate d Referral 03/24/2022 04/23/2023 1 1 [facility] Summary Purpose Family History No Family History Records FoundNo Family History Records FoundNo Family History Records FoundNo Family History Records FoundNo Family History Records Found Advance Directives No Advanced Directives Records FoundDocuments on File Type Date 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 Advance Directive(s) 08/05/2018 8:00 PM Advance Directive(s) 08/04/2018 9:24 AM Documents on File Type Date 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 Advance Directive(s) 08/05/2018 8:00 PM Advance Directive(s) 08/04/2018 9:24 AM Latest Code Status on File Code Status Date Activated Date Inactivated Comments Full Code 09/10/2023 5:47 AM 09/15/2023 8:53 PM Latest Code Status on File Code Status Date Activated Date Inactivated Comments Full Code 09/10/2023 5:47 AM 09/15/2023 8:53 PM Health Concerns Infection Onset Date Last Indicated Resolved Time COVID-19 Rule-Out 01/11/2022 01/11/2022 Infection Onset Date Last Indicated Resolved Time COVID-19 Rule-Out 01/11/2022 01/11/2022 01/12/2022 5:05 AM EDT Infection Onset Date Last Indicated Resolved Time COVID-19 Rule-Out 09/29/2022 09/29/2022 09/30/2022 5:39 AM EST Reason for Referral Specialty Diagnoses / Procedures Referred By Contac t Referred To Contact Dermatology Diagnoses Acne vulgaris Procedures CONSULT TO DERMATOLOGY Tresa Wells APRN.CNP [address] [place] [address] Referral ID Status Reason Start Date Expiration Date Visits Requested Visits Authorized [id number] Ref Not Required PCP Requested Referral 03/11/2022 03/11/2023 1 1 Specialty Diagnoses / Procedures Referred By Contac t Referred To Contact Saima Tan MD [address] [place] [address] Referral ID Status Reason Start Date Expiration Date V isits Requested Visits Authorized [id number] Pending Review 1 1 Additional Source Comments INFORMATION SOURCE (unrecogn ized section and content) DATE CREATED AUTHOR AUTHOR'S ORGANIZ ATION 09/03/2018 [facility] DATE CREATED AUTHOR AUTHOR'S ORGANIZ ATION 11/10/2021 [facility] DATE CREATED AUTHOR AUTHOR'S ORGANIZ ATION 09/22/2023 [facility] DATE CREATED AUTHOR AUTHOR'S ORGANIZ ATION 09/24/2023 [facility] Source Comments (unrecognize d section and content) In the event this informatio n is protected by the Federal Confidentiality of Alcohol and Drug Abuse Patient Records regulations: The Federal rules restrict any use of the information to criminally investigate or prosecute any alcohol or drug abuse patient.[facility] the event this information is protected by the Federal Confidentiality of Alcohol and Drug Abuse Patient Records regulations: The Federal rules restrict any use of the information to criminally investigate or prosecute any alcohol or drug abuse patient.[facility] the event this information is protected by the Federal Confidentiality of Alcohol and Drug Abuse Patient Records regulations: The Federal rules restrict any use of the information to criminally investigate or prosecute any alcohol or drug abuse patient.[facility] the event this information is protected by the Federal Confidentiality of Alcohol and Drug Abuse Patient Records regulations: The Federal rules restrict any use of the information to criminally investigate or prosecute any alcohol or drug abuse patient.[facility] the event this information is protected by the Federal Confidentiality of Alcohol and Drug Abuse Patient Records regulations: The Federal rules restrict any use of the information to criminally investigate or prosecute any alcohol or drug abuse patient.[facility] the event this information is protected by the Federal Confidentiality of Alcohol and Drug Abuse Patient Records regulations: The Federal rules restrict any use of the information to criminally investigate or prosecute any alcohol or drug abuse patient.[facility] the event this information is protected by the Federal Confidentiality of Alcohol and Drug Abuse Patient Records regulations: The Federal rules restrict any use of the information to criminally investigate or prosecute any alcohol or drug abuse patient.[facility] the event this information is protected by the Federal Confidentiality of Alcohol and Drug Abuse Patient Records regulations: The Federal rules restrict any use of the information to criminally investigate or prosecute any alcohol or drug abuse patient.[facility] the event this information is protected by the Federal Confidentiality of Alcohol and Drug Abuse Patient Records regulations: The Federal rules restrict any use of the information to criminally investigate or prosecute any alcohol or drug abuse patient.[facility] the event this information is protected by the Federal Confidentiality of Alcohol and Drug Abuse Patient Records regulations: The Federal rules restrict any use of the information to criminally investigate or prosecute any alcohol or drug abuse patient.[facility] the event this information is protected by the Federal Confidentiality of Alcohol and Drug Abuse Patient Records regulations: The Federal rules restrict any use of the information to criminally investigate or prosecute any alcohol or drug abuse patient.[facility] the event this information is protected by the Federal Confidentiality of Alcohol and Drug Abuse Patient Records regulations: The Federal rules restrict any use of the information to criminally investigate or prosecute any alcohol or drug abuse patient.[facility] the event this information is protected by the Federal Confidentiality of Alcohol and Drug Abuse Patient Records regulations: The Federal rules restrict any use of the information to criminally investigate or prosecute any alcohol or drug abuse patient.[facility] the event this information is protected by the Federal Confidentiality of Alcohol and Drug Abuse Patient Records regulations: The Federal rules restrict any use of the information to criminally investigate or prosecute any alcohol or drug abuse patient.[facility] the event this information is protected by the Federal Confidentiality of Alcohol and Drug Abuse Patient Records regulations: The Federal rules restrict any use of the information to criminally investigate or prosecute any alcohol or drug abuse patient.[facility] the event this information is protected by the Federal Confidentiality of Alcohol and Drug Abuse Patient Records regulations: The Federal rules restrict any use of the information to criminally investigate or prosecute any alcohol or drug abuse patient.[facility] the event this information is protected by the Federal Confidentiality of Alcohol and Drug Abuse Patient Records regulations: The Federal rules restrict any use of the information to criminally investigate or prosecute any alcohol or drug abuse patient.[facility] the event this information is protected by the Federal Confidentiality of Alcohol and Drug Abuse Patient Records regulations: The Federal rules restrict any use of the information to criminally investigate or prosecute any alcohol or drug abuse patient.[facility] the event this information is protected by the Federal Confidentiality of Alcohol and Drug Abuse Patient Records regulations: The Federal rules restrict any use of the information to criminally investigate or prosecute any alcohol or drug abuse patient.[facility] the event this information is protected by the Federal Confidentiality of Alcohol and Drug Abuse Patient Records regulations: The Federal rules restrict any use of the information to criminally investigate or prosecute any alcohol or drug abuse patient.[facility] the event this information is protected by the Federal Confidentiality of Alcohol and Drug Abuse Patient Records regulations: The Federal rules restrict any use of the information to criminally investigate or prosecute any alcohol or drug abuse patient.[facility] Reason for Visit (unrecogniz ed section and content) Reason Comments Results Reason Onset Date Comments Refill Request 03/11/2022 Reason Comments Rash on face X 1 week Reason Comments Patient Question Reason Comments Rash Rash on face x 2 wee ks Reason Comments Follow Up Reason Comments Abscess Headache Reason Comments er follow up questions Reason Onset Date Comments Transition Of Care 05/24/2022 Reason Comments Refill Request Reason Onset Date Comments Population Health Navigation Outreach 09/15/2022 HCC Gap/Medicaid Reason Comments Sore Throat LANCE, fever, rash on c hin x2 weeks Reason Comments sore on chin Off and on x 2 years -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 Cindi Smith MD [address] [address] [facility] Respiratory [address] [place] [address] Referral ID Status Reason Start Date Expiration Date Visits Re quested Visits Authorized [id number] 1 1 Care Teams (unrecognized sec tion and content) Jack Frame Tender Relationship Specialty Start Date End Date Dacia Leo MD [address] [place] [address] PCP - General Family Practice 08/24/10 Jack Frame Tender Relationship Specialty Start Date End Date Dacia Leo MD [address] [place] [address] PCP - General Family Practice 08/24/10 Jack Frame Tender Relationship Specialty Start Date End Date Dacia Leo MD [address] [place] [address] PCP - General Family Practice 08/24/10 Jack Frame Tender Relationship Specialty Start Date End Date Dacia Leo MD [address] [place] [address] PCP - General Family Practice 08/24/10 Jack Frame Tender Relationship Specialty Start Date End Date Dacia Leo MD [address] [place] [address] PCP - General Family Practice 08/24/10 Jack Frame Tender Relationship Specialty Start Date End Date Dacia Leo MD [address] [place] [address] PCP - General Family Practice 08/24/10 Jack Frame Tender Relationship Specialty Start Date End Date Dacia Leo MD [address] [place] [address] PCP - General Family Practice 08/24/10 Jack Frame Tender Relationship Specialty Start Date End Date Dacia Leo MD [address] [place] [address] PCP - General Family Practice 08/24/10 Jack Frame Tender Relationship Specialty Start Date End Date Dacia Leo MD [address] [place] [address] PCP - General Family Practice 08/24/10 Jack Frame Tender Relationship Specialty Start Date End Date Dacia Leo MD [address] [place] [address] PCP - General Family Medicine 08/24/10 Jack Frame Tender Relationship Specialty Start Date End Date Dacia Leo MD [address] [place] [address] PCP - General Family Medicine 08/24/10 Jack Frame Tender Relationship Specialty Start Date End Date Dacia Leo MD [address] [place] [address] PCP - General Family Medicine 08/24/10 Jack Frame Tender Relationship Specialty Start Date End Date Dacia Leo MD [address] [place] [address] PCP - General Family Medicine 08/24/10 Jack Frame Tender Relationship Specialty Start Date End Date Dacia Leo MD [address] [place] [address] PCP - General Family Medicine 08/24/10 Jack Frame Tender Relationship Specialty Start Date End Date Dacia Leo MD [address] [place] [address] PCP - General Family Medicine 08/24/10 Jack Frame Tender Relationship Specialty Start Date End Date Dacia Leo MD [address] [facility] [place] [address] PCP - General Family Medicine 08/24/10 Jack Frame Tender Relationship Specialty Start Date End Date Dacia Leo MD [address] [facility] [place] [id number] PCP - General Family Medicine 08/24/10 Scheduled Active and Recently Administ ered Medications (unrecognized section and content) PRN Medication Order 09/13/2023 09/14/2023 09/15/2023 acetaminophen (Tylenol) suppository 650 mg(Linked Group 2) 650 mg, Rectal, Every 6 hours PRN, mild pain (1-3), fever, For temp greater than 100.4 F (38 C), Starting on 09/10/23 at 0547, Administer if oral route cannot be used. Maximum dose of acetaminophen is 4000 mg from all sources in 24 hours. acetaminophen (Tylenol) tablet 650 mg(Linked Group 2) 650 mg, Oral, Every 6 hours PRN, mild pain (1-3), fever, For temp greater than 100.4 F (38 C), Starting on 09/10/23 at 0547, Maximum dose of acetaminophen is 4000 mg from all sources in 24 hours. cloNIDine (Catapres) tablet 0.1 mg 0.1 mg, Oral, Every 6 hours PRN, withdrawal associated agitation, Starting on 09/10/23 at 1302, Hold for SBP LESS than 90 mmHg. dicyclomine (Bentyl) tablet 20 mg 20 mg, Oral, Every 6 hours PRN, abdominal cramping, Starting on 09/10/23 at 1302 melatonin tablet 3 mg 3 mg, Oral, Nightly PRN, sleep, Starting on 09/10/23 at 0547 2117 (Given - Provider: Haritha Martinez RN) morphine injection 2 mg 2 mg, IntraVENous, Every 4 hours PRN, moderate pain (4-6), severe pain (7-10), Starting on 09/10/23 at 0336, If oral and IV narcotics ordered, use oral first and only use IV if oral is ineffective or cannot take oral. Do Not give oral and IV within 1 hour of each other unless specifically ordered. 0925 (Given - Provider: Kylah Parks, NASH)1335 (Given - Provider: Kylah Parks, RN)2117 (Given - Provider: Harjit Parsons, RN) 0401 (Given - Provider: Harjit Parsons RN)0832 (Given - Provider: Kylah Parks, NASH)1231 (Given - Provider: Kylah Parks, RN)1953 (Given - Provider: Haritha Martinez, NASH) 0157 (Given - Provider: Haritha Martinez, NASH)0626 (Given - Provider: Haritha Martinez, NASH) naloxone (Narcan) injection 0.4 mg 0.4 mg, IntraVENous, Every 5 min PRN, opioid reversal, respiratory depression, Starting on Tue09/14/23 at 0915, +++ For RR <10, pinpoint pupils, over sedation for opioid reversal - MUST notify alumni relations coordinator provider immediately after first dose, may give IM or SQ if no IV access +++ nicotine (Nicoderm, Step 1) 21 MG/24HR patch 1 patch 1 patch, TransDERmal, Administer over 24 Hours, Daily PRN, Nicotine cravings, Starting on 09/10/23 at 0547, Apply new patch to nonhairy, clean, dry skin on the upper body or upper outer arm. Rotate patch sites. Notify Pharmacy if patient or provider prefers patch to be removed at bedtime and replaced in the morning. nicotine polacrilex (Commit) lozenge 2 mg 2 mg, Mouth/Throat, Every 2 hour PRN, smoking cessation, Starting on Tue09/11/23 at 1134 ondansetron (Zofran) injection 4 mg(Linked Group 3) 4 mg, IntraVENous, Every 6 hours PRN, nausea, vomiting, Starting on 09/10/23 at 0547, 1st Line. Give IV if patient is unable to take orally. If inadequate response within 60 minutes, proceed to next-line agent or contact provider if no further options ordered. 1706 (Given - Provider: Kylah Parks RN) 0404 (Given - Provider: Harjit Parsons RN)1231 (Given - Provider: Kylah Parks RN)195 (Given - Provider: Haritha Martinez RN) 0156 (Given - Provider: Haritha Martinez RN) ondansetron ODT (Zofran-ODT) disintegrating tablet 4 mg(Linked Group 3) 4 mg, Oral, Every 8 hours PRN, nausea, vomiting, Starting on 09/10/23 at 0547, 1st Line. If inadequate response within 60 minutes, proceed to next-line agent or contact provider if no further options ordered. Patient should allow tablet to dissolve on tongue. Do not remove from blister pack until just before administering. 1706 (See Alternative - Provider: Kylah Parks RN) 0404 (See Alternative - Provider: Harjit Parsons RN)1231 (See Alternative - Provider: Kylah Parks RN)1952 (See Alternative - Provider: Haritha Martinez RN) 0156 (See Alternative - Provider: Haritha Martinez RN) sodium chloride (Hood) 0.65 % nasal spray 2 spray 2 spray, Each Nostril, Every 4 hours PRN, nasal dryness, Starting on Tue09/13/23 at 0337 0539 (Given - Provider: Harjit Parsons RN)1336 (Given - Provider: Kylah Parks RN) Linked Groups Order Group 1: lactulose (Chronulac) 10 GM/15ML solution 20 gJump to med 20 g, Oral, 3 times daily, First dose on 09/10/23 at 0900 Or lactulose (Chronulac) 200 g in sterile water 1,000 mL enemaJump to med 1 enema, Rectal, 3 times daily, First dose on 09/10/23 at 0900, Mix 200GM (300mL) of lactulose with 700mL of sterile water for total volume of 1000mL - If Pt NPO or unable to tolerate PO intake Group 2: acetaminophen (Tylenol) tablet 650 mgJump to med 650 mg, Oral, Every 6 hours PRN, mild pain (1-3), fever, For temp greater than 100.4 F (38 C), Starting on 12/16/23 at 0547, Maximum dose of acetaminophen is 4000 mg from all sources in 24 hours. Or acetaminophen (Tylenol) suppository 650 mgJump to med 650 mg, Rectal, Every 6 hours PRN, mild pain (1-3), fever, For temp greater than 100.4 F (38 C), Starting on 09/10/23 at 0547, Administer if oral route cannot be used. Maximum dose of acetaminophen is 4000 mg from all sources in 24 hours. Group 3: ondansetron ODT (Zofran-ODT) disintegrating tablet 4 mgJump to med 4 mg, Oral, Every 8 hours PRN, nausea, vomiting, Starting on 09/10/23 at 0547, 1st Line. If inadequate response within 60 minutes, proceed to next-line agent or contact provider if no further options ordered. Patient should allow tablet to dissolve on tongue. Do not remove from blister pack until just before administering. Or ondansetron (Zofran) injection 4 mgJump to med 4 mg, IntraVENous, Every 6 hours PRN, nausea, vomiting, Starting on 09/10/23 at 0547, 1st Line. Give IV if patient is unable to take orally. If inadequate response within 60 minutes, proceed to next-line agent or contact provider if no further options ordered. FOR RECORDS PERTAINING TO PATIENTS WHO ARE OR HAVE BEEN ENROLLED IN A CHEMICAL DEPENDENCY/SUBSTANCEABUSE PROGRAM, SOME INFORMATION MAY BE OMITTED. This clinical summary was aggregated from multiple sources. Caution should be exercised in using it in the provision of clinical care. This summary normalizes information from multiple sources, and as a consequence, information in this document may materially change the coding, format and clinical context of patient data. In addition, data may be omitted in some cases. CLINICAL DECISIONS SHOULD BE BASED ON THE PRIMARY CLINICAL RECORDS. [facility] [employer] [facility]. provides no warranty or guarantee of the accuracy or completeness of information in this document.
[2023-09-24] MEDS: Phenol/Sodium Phenolate 180ML 5 SPRAY MUCOUS MEM (21:58)
[2023-09-24] MEDS: Ketorolac 30 MG/ML Syringe IV (21:58)
[2023-09-24 22:27] LABS: Anion Gap 5 (5-15); BUN 12 mg/dL (7-18); Calcium,Total 8.9 mg/dL (8.5-10.1); Chloride 117 mmol/L (98-107); EST Glomerular Filtration Rate 63 mL/min (>60); Est Glom Filt Rate - Afr Amer 76 mL/min (>60); Estimated Creatinine Clearance 53.82 ml/min; Glucose 122 mg/dL (74-106); Potassium 3.6 mmol/L (3.5-5.1); Sodium Level 144 mmol/L (136-145)
[2023-09-25 00:14] VITALS: BP 134/84; PULSE 68; RESP 16; O2SAT 100
== END 2023-09-25 00:15 | disposition home or self-care (01) ==
PROVIDERS: Emergency Provider Emergency Medicine; PCP Family Medicine; Visit Provider Emergency Medicine
DX: J02.9 Acute pharyngitis, unspecified (principal); J44.9 Chronic obstructive pulmonary disease, unspecified; H92.09 Otalgia, unspecified ear; M54.2 Cervicalgia; Z11.52 Encounter for screening for COVID-19; F17.210 Nicotine dependence, cigarettes, uncomplicated; Z79.899 Other long term (current) drug therapy
CPT/HCPCS: 70491; 80048; 87631; 96374; 99284; Q9967; A4216

== ENCOUNTER 2023-10-06 17:07 | Inpatient (IN) | payer MEDICAID, SELFPAY ==
[2023-10-06 17:08] VITALS: BP 130/85; PULSE 80; RESP 16; TEMP 36.1; O2SAT 100; BMI 38.1
--- OUTSIDE RECORDS SUMMARY | 2023-10-06 18:44 | XMS RPT_ITS | CCD ---
Author Name Unknown Address [address] [place] [address] Organization [facility] Care Team Providers Care Green Building Energy Engineer Name Role Phone GELA AGUDELO Unavailable Unavailable DACIA LEO Unavailable RENAY BENTLEY Unavailable Unav ailable RENAY BENTLEY Unavailable Unav ailDacia Osborn MD Primary Care Provider Dacia Leo MD Primary Care Provider Dacia Leo MD Primary Care Provider Dacia Leo MD Primary Care Provider Unavailable Primary Care Provider Unavailabl DACIA Roberto Referring Unavailable DACIA LEO Primary Care Unavailable DACIA LEO Primary Care Unavailable DACIA LEO Primary Care Unavailable ANDERSON HUBER Consulting Unavailable CINDI SMITH Admitting Unavailable SAIMA TAN Attending Unavailable Allergies Allergy Classification Reported Allergen(s) Allergy Type Date of Onset Reaction(s) Facility (20 sources) Aspirin; Translations: [ASPIRIN] Drug Allergy 5 [facility] Repository (20 sources) buPROPion; Translations: [BUPROPION HCL] Drug Allergy 3 Other: See Comments [facility] Repository (20 sources) Codeine; Translations: [CODEINE] Drug Allergy 5 Rash, Hives [facility] Rep[facility] (20 sources) buPROPion; Translations: [BUPROPION] Drug Allergy 3 Other: See Comments [facility] (20 sources) predniSONE; Translations: [PREDNISONE] Drug Allergy 9 Rash [facility] Work Phone: (3 sources) Prednisone Propensity to adverse reactions 9 Rash [facility] Medications Current Medications Medication Drug Class(es) [...] tablet 650 mg 20 ml albumin human, halfway 250 mg/ml injection (2 sources) Human Serum Albumin Start: 09-10-2023 End: 09-10-2023 albumin human 25 % IV solution 50 g [id number] 200 actuat albuterol 0.09 mg/actuat metered dose [...] 38.38 kg/m2 Lenny Macdonald MD Work Phone: [facility] [employer] 09-15-2023 12:01-0500 Body weight 95.21 kg Lenny Macdonald MD Work Phone: [employer] 09-15-2023 11:39-0500 Body height 157.5 cm Lenny Macdonald MD Work Phone: [employer] 09-15-2023 06:02-0500 Body temperature 97.3 [degF] Lenny Macdonald MD Work Phone: [facility] [employer] 09-15-2023 06:02-0500 Diastolic blood pressure 53 mm[Hg] Lenny Macdonald MD Work Phone: [employer] 09-15-2023 06:02-0500 Heart rate 68 /min Lenny Macdonald MD Work Phone: [employer] 09-15-2023 06:02-0500 Respiratory rate 16 /min Lenny Macdonald MD Work Phone: [employer] 09-15-2023 06:02-0500 SaO2% (BldA) [Mass fraction] 98 % Lenny Macdonald MD Work Phone: [employer] 09-15-2023 06:02-0500 Systolic blood pressure 91 mm[Hg] Lenny Macdonald MD Work Phone: [employer] 12-02-2022 12:49-0500 Body temperature 98.29 [degF] Joselito GARCIA Work Phone: [facility] 12-02-2022 12:49-0500 Body weight 94.62 kg Krislyn Aberegg PA Work Phone: [facility] 12-02-2022 12:49-0500 Diastolic blood pressure 78 mm[Hg] Krislyn Aberegg PA Work Phone: [facility] 12-02-2022 12:49-0500 Heart rate 64 /min Krislyn Aberegg PA Work Phone: [facility] 12-02-2022 12:49-0500 Respiratory rate 16 /min Krislyn Aberegg PA Work Phone: [facility] 12-02-2022 12:49-0500 SaO2% (BldA) [Mass fraction] 98 % Krislyn Aberegg PA Work Phone: [facility] 12-02-2022 12:49-0500 Systolic blood pressure 104 mm[Hg] Krislyn Aberegg PA Work Phone: [facility] 09-29-2022 17:56-0500 Body temperature 98.2 [degF] Ananda Prabhakar MD Work Phone: [facility] 09-29-2022 17:56-0500 Body weight 94.98 kg Ananda Prabhakar MD Work Phone: [facility] 09-29-2022 17:56-0500 Diastolic blood pressure 82 mm[Hg] Ananda Prabhakar MD Work Phone: [facility] 09-29-2022 17:56-0500 Heart rate 67 /min Ananda Prabhakar MD Work Phone: [facility] 09-29-2022 17:56-0500 Respiratory rate 20 /min Ananda Prabhakar MD Work Phone: [facility] 09-29-2022 17:56-0500 SaO2% (BldA) [Mass fraction] 99 % Ananda Prabhakar MD Work Phone: [facility] 09-29-2022 17:56-0500 Systolic blood pressure 122 mm[Hg] Ananda Prabhakar MD Work Phone: [facility] 05-10-2022 15:42-0400 Diastolic blood pressure 96 mm[Hg] Dacia Leo MD Work Phone: [facility] 05-10-2022 15:42-0400 Systolic blood pressure 148 mm[Hg] Dacia Leo MD Work Phone: [facility] 05-10-2022 15:39-0400 Body weight 89.18 kg Dacia Leo MD Work Phone: [facility] 05-10-2022 15:39-0400 Heart rate 92 /min Dacia Leo MD Work Phone: [facility] 05-10-2022 15:39-0400 Respiratory rate 20 /min Dacia Leo MD Work Phone: [facility] 05-09-2022 14:43-0400 Body temperature 98.6 [degF] Blanca Dawson APRN.COMB SETTER Work Phone: [facility] 05-09-2022 14:43-0400 Body weight 91.54 kg Blanca Dawson APRN.COMB SETTER Work Phone: [facility] 05-09-2022 14:43-0400 Diastolic blood pressure 74 mm[Hg] Blanca Dawson APRN.COMB SETTER Work Phone: [facility] 05-09-2022 14:43-0400 Heart rate 85 /min Blanca Dawson APRN.COMB SETTER Work Phone: [facility] 05-09-2022 14:43-0400 Respiratory rate 21 /min Blanca Dawson APRN.COMB SETTER Work Phone: [facility] 05-09-2022 14:43-0400 SaO2% (BldA) [Mass fraction] 99 % Blanca Dawson APRN.COMB SETTER Work Phone: [facility] 05-09-2022 14:43-0400 Systolic blood pressure 126 mm[Hg] Blanca Dawson APRN.COMB SETTER Work Phone: [facility] 03-11-2022 14:26-0400 Body weight 92.08 kg Tresa Tannhof INDEX CLERK.COMB SETTER Work Phone: [facility] 03-11-2022 14:26-0400 Diastolic blood pressure 64 mm[Hg] Tresa Tannhof INDEX CLERK.COMB SETTER Work Phone: [facility] 03-11-2022 14:26-0400 Heart rate 62 /min Tresa Tannhof INDEX CLERK.COMB SETTER Work Phone: [facility] 03-11-2022 14:26-0400 Respiratory rate 14 /min Tresa Tannhof INDEX CLERK.COMB SETTER Work Phone: [facility] 03-11-2022 14:26-0400 Systolic blood pressure 106 mm[Hg] Tresa Tannhof INDEX CLERK.COMB SETTER Work Phone: [facility] 01-11-2022 13:23-0400 Body temperature 97.81 [degF] Becca Enmanuel INDEX CLERK.COMB SETTER Work Phone: [facility] 01-11-2022 13:23-0400 Body weight 96.34 kg Becca Enmanuel INDEX CLERK.COMB SETTER Work Phone: [facility] 01-11-2022 13:23-0400 Diastolic blood pressure 62 mm[Hg] Becca Enmanuel INDEX CLERK.COMB SETTER Work Phone: [facility] 01-11-2022 13:23-0400 Heart rate 65 /min Becca Enmanuel INDEX CLERK.COMB SETTER Work Phone: [facility] 01-11-2022 13:23-0400 Respiratory rate 21 /min Becca Enmanuel INDEX CLERK.COMB SETTER Work Phone: [facility] 01-11-2022 13:23-0400 SaO2% (BldA) [Mass fraction] 99 % Becca Enmanuel INDEX CLERK.COMB SETTER Work Phone: [facility] 01-11-2022 13:23-0400 Systolic blood pressure 102 mm[Hg] Becca Enmanuel INDEX CLERK.COMB SETTER Work Phone: [facility] 08-04-2018 12:36-0500 Body surface area [facility] 12:11-0500 Body surface area Derived from formula [facility] Encounters Encounter Date Encounter Type Care Provider Facility Start: 09-16-2023 Telephone encounter Emperatriz Chacon [facility] Clinical Communication Start: 09-09-2023 End: 09-15-2023 Evaluation and management of inpatient [facility] Start: 09-09-2023 End: 09-15-2023 Evaluation and management of inpatient Lenny Macdonald MD Work Phone: [facility] Respiratory Unit 7W Procedures Date Procedure Procedure [...] 09-10-2023 Abdom paracentesis d x/ther w/imaging guidance Cnidi Smith MD Work Phone: Start: 09-10-2023 Comprehensive [...] Cul bact xcpt urine blood/stool aerobic isol Ananad Prabhakar MD Work Phone: Plan of Treatment Date Care Activity Detail Author Start: 2033 RSV Immunization aged 60 or older (1 - 1-dose 60+ series) RSV Immunization aged 60 or older (1 - 1-dose 60+ series) [facility] Start: 07-20-2033 DTaP/Tdap/Td Vaccines (2 - Td or Tdap) DTaP/Tdap/Td Vaccines (2 - Td or Tdap) [facility] Start: 07-20-2033 Urine microalbumin profile DTaP,Tdap,Td Vaccine (2 - Td or Tdap) [facility] Start: 06-24-2024 DIABETES SCREEN DIABETES SCREEN [facility] Start: 06-24-2024 Diabetes Screening Diabetes Screening [facility] Start: 02-21-2024 HPV TESTING HPV TESTING [facility] Start: 02-21-2024 PAP TESTING PAP TESTING [facility] Start: 01-25-2024 Mammography [facility] Start: 2023 Zoster Vaccines (1 of 2) Zoster Vaccines (1 of 2) [facility] Start: 05-27-2023 Influenza vaccination [facility] Start: 12-02-2022 End: 02-01-2023 Bacteria identified in Wound by Culture WOUND CULTURE AND GRAM STAIN Microbiology Routine Skin infection Expected: 12/02/2022, Expires: 02/01/2023 [facility] Work Phone: Immunizations Immunization Date Immunization Notes Care Provider Fa [facility] 07-20-2023 tetanus toxoid, redu viridiana diphtheria toxoid, and acellular pertussis vaccine, adsorbed Lenny Macdonald MD Work Phone: [facility] 08-06-2018 influenza, injectabl e, quadrivalent, preservative free Becca Enmanuel INDEX CLERK.COMB SETTER Work Phone: [facility] 08-06-2018 influenza virus vaccine, unspecified formulation Screen Wstr [facility] 08-05-2018 pneumococcal polysaccharide vaccine, 23 valent Becca Enmanuel INDEX CLERK.COMB SETTER Work Phone: [facility] NEGATED: Highlighted row has not occurred!09-11-2023 Influenza, injectable, Madin Adams Canine Kidney, preservative free, quadrivalent Lenny Macdonald MD Work Phone: [facility] Payers Date Payer Category Payer Medicaid [id number] 2015 Medicaid [id number] 2015 Medicaid [facility] [id number] 2015-Present [phone] [address] [place] [address] Medicaid [id number] 2015 Medicaid [id number] Social History Date Type Detail Facility Start: 04-14-2017 End: 05-09-2022 Tobacco smoking status NHIS Smokes tobacco daily [facility] Work Phone: History of tobacco use Cigarette Smoker C [facility] Work Phone: Start: 01-11-2022 End: 12-02-2022 Alcohol intake Current drinker of alcohol (finding) [facility] Start: 02-28-2020 History SDOH Alcohol Frequency 3 [facility] Start: 12-10-2011 History SDOH Alcohol Comment occasionally mixed drink [facility] Start: 04-14-2017 End: 05-09-2022 Tobacco Comment maybe more then 1 pack daily [facility] Start: 1975 Sex Assigned At Not on file [facility] Start: 01-01-2022 End: 05-26-2022 Exposure to SARS-CoV-2 (event) Not sure [facility] Work Phone: Start: 04-14-2017 End: 09-10-2023 Cigarettes smoked current (pack per day) - Reported 1 [facility] Work Phone: Start: 04-14-2017 End: 05-09-2022 Tobacco use and exposure Smokeless tobacco non-user [facility] Start: 04-30-2022 End: 05-10-2022 Exposure to SARS-CoV-2 (event) Yes [facility] Start: 02-28-2020 End: 09-10-2023 Alcohol Use Disorder Identification Test - Consumption [AUDIT-C] [facility] Work Phone: How often to you hav e a drink containing alcohol? 2-4 times a month [facility] Work Phone: Average Number of Drinks Not on file [facility] Within the last year , have you been afraid of your partner or ex-partner? No [facility] How often to you hav e a drink containing alcohol? Never [facility] Clinical Notes 01-11-2022 to 09-20-2023 Telephone Encounter - Emperatriz Chacon LPN - 09/20/2023 9:58 AM ESTTelephone Encounter - Emperatriz Chacon LPN - 09/20/2023 9:[address] - 09/15/2023 12:12 PM EST Note Date & Type Note Facility 09-20-2023 Telephone encounter Note Unable to contact patient X2 [facility] 09-20-2023 Miscellaneous Notes Unable to contact patient X2 S: Patient admitted to: [facility] 09/09/23 B: Discharged on : 09/15/23 A: Hospital follow up call initiated to discuss any medication changes, follow up appointments and discharge instructions: Small bowel obstruction R: No contact x 1 at : [phone] documented in this encounter [facility] 09-16-2023 Telephone encounter Note S: Patient admitted to: [facility] 09/09/23 B: Discharged on : 09/15/23 A: Hospital follow up call initiated to discuss any medication changes, follow up appointments and discharge instructions: Small bowel obstruction R: No contact x 1 at : [phone] [facility] 09-15-2023 Note Formatting of this n [...] service. SW placed call to [facility] [phone]. Transport arranged for medicinal plant picker at [address] between 4:12-6:12pm. They will call the unit 15 minutes prior to their arrival . Ref # [id number]. hop farm worker updated patients bedside RN, who will update the patient. [facility] 09-15-2023 Note Formatting of this n ote might be different from the original. Social work follow up on discharge. SW notified by patients bedside RN patient needs assist with transport to home. SHELL spoke to patient to confirm address on file is correct. She reports she typically will use her [facility] johnny for transport and uses their uber/lyft service. SW placed call to [employer] transport [phone]. Transport arranged for medicinal plant picker at [address] between 4:12-6:12pm. They will call the unit 15 minutes prior to their arrival . Ref # [id number]. hop farm worker updated patients bedside RN, who will update the patient. [facility] 09-15-2023 Miscellaneous Notes Social work follow up on discharge. SW notified by patients bedside RN patient needs assist with transport to home. SHELL spoke to patient to confirm address on file is correct. She reports she typically will use her [facility] johnny for transport and uses their uber/lyft service. SW placed call to [facility] transport [phone]. Transport arranged for medicinal plant picker at [address] between 4:12-6:12pm. They will call the unit 15 minutes prior to their arrival . Ref # [id number]. hop farm worker updated patients bedside RN, who will [...] Limits Permission given to speak with patient account maintenance representative/caregiver as indicated: Yes Confirmation of Payer with patient/family: Yes Payer Name: [employer] [place]: No Confirmation of Primary Care Physician: Confirmed [...] TCC will follow. documented in this encounter [facility] 09-15-2023 Note Discharge Summary Carolina Bonilla [...] on chronic, unstable/uncontrolled chronic problems: Abdominal pain Cirrhosis with ascites Concern for partial small bowel obstruction Hypokalemia [...] SIGNIFICANT DIAGNOSTIC STUDIES: US guided abdominal paracentesis [[id number]] Collected: 09/14/231134 Order Status: Completed Updated: 09/14/231136 [...] loss (mL): Less than 10 Standardized report: _Paracentesis_v2 Report Dictated on Electronically Signed By: Windy Pastor PA-C Electronically Signed Date/Time: 09/14/2023 11:36 AM EST US guided abdominal paracentesis [[id number]] Collected: 09/10/23853 Order Status: Completed Updated: 09/10/23854 Narrative: Patient Name: CAROLINA BONILLA : 1975 Exam Date/Time: 09/10/2023 08:29 Proced (more content not included)... [facility] 09-15-2023 History of Presen t illness [...] (S/p paracentesis 09/14 with 1.7L removed) Ascites Green Tire Inspector Strength: Not Performed Nutrition Assessment: 47yo F [...] On: Kcal/kg Weight Used for Energy Requirements: [place] Weight for Energy Calculation (kg): 50 kg Total Energy Requirements (kcals/day): 27-32 kcal/kg = 3632-6005 kcal/day Weight Used for Protein Requirements: [place] Weight in Kg Used for Protein Requirements: [...] lb) (stated) % Weight Change (Calculated): 5 [place] Body Weight (lbs) (Calculated): 110 lbs [place] Body Weight (Kg) (Calculated): 50 kg % [place] Body Weight (Calculated): 190.8 % BMI (kg/m2) [...] Continue current diet Latha Lester RD Contact: *[phone] Images from the original note were not included. Hospitalist Progress Note 09/15/2023 Subjective: Admit Date: 09/09/2023 PCP: No primary care provider on file. Room#: W7-726/W7720 A Brief Hospital course: Patient is 47-year-old [...] 1,000 mL enema, 1 enema, Rectal, TID omssqdkc-szlugodfqn-ghqnwwsni, , Topical, TID pantoprazole (ProtoNix) 40 mg [...] Saima Tan MD Division of Hospitalist Medicine [facility] Images from the original note were not included. Hospitalist Progress Note 09/14/2023 Subjective: Admit Date: 09/09/2023 PCP: No primary care provider on file. Room#: W7726/W726 A Brief Hospital course: Patient is 47-year-old [...] 1,000 mL enema, 1 enema, Rectal, TID grrvtkej-vlarqllerl-cbeghoksc, , Topical, TID pantoprazole (ProtoNix) 40 mg [...] Saima Tan MD Division of Hospitalist Medicine [facility] Images from the original note were not [...] Saima Tan MD Division of Hospitalist Medicine [facility] Images from the original note were not [...] output data in the 24 hours ending 09/12/233 No intake/output data recorded. No intake/output data [...] Surgery PGY-1 09/12/23 4:53 PM Pager # [phone] This note may have been dictated using [employer] Practice Edition 2.6 and/or [employer] Voice Recognition Feature. The document was proofread; however, unrecognized voice recognition firer automatic stoker errors may be present. Associated attestation - [...] FACS Division of Trauma Department of Surgery [facility] ~~~~~~~~~~~~~~~~~~~~~~~~~~~~~~~~ ~~~~~~~~~~~~~~~~~~~~~~~~~~~~~ This note may have been dictated using [employer] Practice Edition 2.6 and/or [employer] Voice Recognition Feature. The document was proofread; however, unrecognized voice recognition firer automatic stoker errors may be present. [place] ADMISSION MEDICATION RECONCILIATION Date: 09/12/23 [facility] Patient Name: Carolina Bonilla Allergies: Aspirin, [...] on last fill dates from patient's [facility]. Home medications to restart if there [...] PM 09/12/2023 4:18 PM Kaylin [place] PharmMelodie Nutrition Assessment Type and Reason for Visit: [...] muscle mass loss Fluid Accumulation: Mild Ascites Green Tire Inspector Strength: Not Performed Nutrition Assessment: 47yo F [...] On: Kcal/kg Weight Used for Energy Requirements: [place] Weight for Energy Calculation (kg): 50 kg Total Energy Requirements (kcals/day): 27-32 kcal/kg = 1918-1245 kcal/day Weight Used for Protein Requirements: [place] Weight in Kg Used for Protein Requirements: [...] 05/26/22 198#) % Weight Change (Calculated): 2.8 [place] Body Weight (lbs) (Calculated): 110 lbs [place] Body Weight (Kg) (Calculated): 50 kg % [place] Body Weight (Calculated): 186.9 % BMI (kg/m2) [...] soon to determine Latha Lester RD Contact: *[phone] Images from the original note were not included. Hospitalist Progress Note 09/12/2023 Subjective: Admit Date: 09/09/2023 PCP: No primary care provider on file. Room#: W7-916/W7-594 A Brief Hospital course: Patient is 47-year-old [...] Saima Tan MD Division of Hospitalist Medicine [facility] Images from the original note were not included. Hospitalist Progress Note 09/11/2023 Subjective: Admit Date: 09/09/2023 PCP: No primary care provider on file. Room#: W7-726/[facility]726 A Interval History: Patient is 47-year-old with [...] ending 09/11/23 1344 LABS: CBC: Recent Labs 09/09/23184709/10/23 0622 09/11/23 0030 WBC 9.4 8.2 7.9 RBC 4.56 4.05 3.80 HGB 10.4* 9.1* 8.6* HCT 32.4* 28.8* 27.4* MCV 71.1* 71.2* 72.2* RDW 21.6* 21.4* 21.6* PLT 95* 79* 61* BMP: Recent Labs 09/09/23184709/10/23 0622 09/11/23 0030 NA 136 138 137 [...] Judah Valentine MD Division of Hospitalist Medicine [facility] Nutrition rescreen completed. Patient is NPO/Clear liquid [...] to follow closely. documented in this encounter [facility] 09-15-2023 Hospital course Narrative Discharge Summary [...] SIGNIFICANT DIAGNOSTIC STUDIES: US guided abdominal paracentesis [[id number]] Collected: 09/14/23 1132 Order Status: Completed Updated: 09/14/231136 Narrative: Patient [...] 11:36 AM EST US guided abdominal paracentesis [[id number]] Collected: 09/10/23853 Order Status: Completed Updated: 09/10/23854 [...] AM EST CT abdomen pelvis w contrast [[id number]] Collected: 09/09/232018 Order Status: Completed Updated: 09/09/232028 [...] 8:28 PM EST XR chest 1 view [[id number]] Collected: 09/09/231846 Order Status: Completed Updated: 09/09/231848 Narrative: Patient Name: CAROLINA BONILLA : 1975 [facility]#: [id number] Exam Date/Time: 09/09/2023 18:44 Procedure: XR CHEST [...] Your Medications These medications were sent to [facility] [place] - [address] [place] [address] desvenlafaxine 100 MG 24 hr tablet doxepin 10 MG capsule traZODone 100 MG tablet DIET: Adult diet Regular ACTIVITY: No restriction. COMPLEXITY OF FOLLOW UP: [] Moderate Complexity: follow up within 7-14 calendar days (06772) [] Severe Complexity: follow up within 7 calendar days (86995) FOLLOW UP TESTING, PENDING RESULTS OR REFERRALS AT TRANSITIONAL CARE VISIT: [] Yes [] No PENDING STUDIES: DISPOSITION: Home FACILITY/HOME CARE AGENCY NAME: Follow up with Cristiana Strauss MD [address] [facility] [address] [facility] [id number] Schedule an appointment as soon as possible [...] 09/15/2023, 12:04 PM documented in this encounter [facility] 09-15-2023 Note Hospitalist Progress Note 09/15/2023 [...] Recent Labs 09/13/23 0126 09/14/23 0206 09/15/23 011 NA 137 136 136 K 3.9 3.7 [...] 1,000 mL enema, 1 enema, Rectal, TID btwfrqut-saerngijky-cwqbyywhr, , Topical, TID pantoprazole (ProtoNix) 40 mg [...] Pedersen MD [facility] Division of Hospitalist Medicine [facility] 09-14-2023 Note Formatting of this n ote might be different from the original. Chart reviewed. Patient had paracentesis today with 1700 ml removed. Surgery is following patient for likely ileus -->no plans for intervention and recommend ADAT. Current discharge plan is home no needs once medically stable. [facility] 09-14-2023 Note Formatting of this n ote might be different from the original. Chart reviewed. Patient had paracentesis today with 1700 ml removed. Surgery is following patient for likely ileus -->no plans for intervention and recommend ADAT. Current discharge plan is home no needs once medically stable. [facility] 09-14-2023 Note Hospitalist Progress Note 09/14/2023 Subjective: [...] 4 5 LIVER PROFILE: Recent Labs 09/12/23 011 AST 106* ALT 54* BILITOT 1.9* ALKPHOS [...] 1,000 mL enema, 1 enema, Rectal, TID groebpds-wxdfkgxkus-sfzulajtv, , Topical, TID pantoprazole (ProtoNix) 40 mg [...] Pedersen MD [facility] Division of Hospitalist Medicine [facility] 09-14-2023 Note Formatting of this n ote might be different from the original. Patient to ultrasound department for paracentesis. History, medications and allergies reviewed. Samuel Pastor PA-C in to speak with patient. Informed consent obtained. 1700 mL clear yellow colored fluid removed. Patient tolerated procedure well. Bandaid applied to site. Patient discharged to [address] [place] [facility] Note Formatting of this n ote might be different from the original. Patient to ultrasound department for paracentesis. History, medications and allergies reviewed. Samuel Pastor PA-C in to speak with patient. Informed consent obtained. 1700 mL clear yellow colored fluid removed. Patient tolerated procedure well. Bandaid applied to site. Patient discharged to 7[facility] 09-13-2023 Note Hospitalist Progress Note 09/13/2023 Subjective: Admit Date: 09/09/2023 PCP: No primary care provider on file. Room#: W726/[facility] A Brief Hospital course: Patient is 47-year-old [...] 61* 58* 56* BMP: Recent Labs 09/11/23 00309/12/23 01109/13/23 012 NA 137 136 137 K 3.4* [...] Extended Emergency Contact Information Primary Emergency Contact: ChadJohn membreno Relation: Spouse Secondary Emergency Contact: Vannesa Bonilla Mobile Relation: Daughter Saima Pedersen MD Rap[facility] Division of Hospitalist Medicine [facility] 09-13-2023 Note Care Management Prog ress Note [...] Stay (Days): 4 GMLOS: No GMLOS Documented [facility] 09-13-2023 Note Formatting of this n [...] Stay (Days): 4 GMLOS: No GMLOS Documented [facility] 09-13-2023 Note Formatting of this n ote [...] Stay (Days): 4 GMLOS: No GMLOS Documented [facility] 09-12-2023 Note Hospitalist Progress Note 09/12/2023 Subjective: [...] Labs 09/10/23 0622 09/11/23 0030 09/12/23 011 AST 103* 98* 106* [...] Saima Tan MD Division of Hospitalist Medicine [facility] 09-12-2023 Note Formatting of this n ote might be different from the original. Care Managment Initial Assessment Date: 09/12/2023 Patient Name: Carolina Bonilla : 1975 Patient Information Source of Information: Patient Cognition/Language: WFL - Within Functional Limits Permission given to speak with patient account maintenance representative/caregiver as indicated: Yes Confirmation of Payer with patient/family: Yes Payer Name: [facility] Medicaid [place]: No Confirmation of Primary Care Physician: Confirmed PCP Name: Dr. Drake- [facility] Seen in last 2 years?: Yes Primary [...] home with Significant Other. Meg Herrmann RN [facility] 09-12-2023 Note Formatting of this n ote might be different from the original. Care Managment Initial Assessment Date: 09/12/2023 Patient Name: Carolina Bonilla : 1975 Patient Information Source of Information: Patient Cognition/Language: WFL - Within Functional Limits Permission given to speak with patient account maintenance representative/caregiver as indicated: Yes Confirmation of Payer with patient/family: Yes Payer Name: [facility] Medicaid [place]: No Confirmation of Primary Care Physician: Confirmed [...] home with Significant Other. Meg Herrmann RN [employer] 09-11-2023 Note Formatting of this n ote might be different from the original. Attempted to complete Initial assessment over the phone. Patient currently unavailable/off unit. Will try again as time allows. TCC will follow. [facility] 09-11-2023 Note Formatting of this n ote might be different from the original. Attempted to complete Initial assessment over the phone. Patient currently unavailable/off unit. Will try again as time allows. TCC will follow. [facility] 09-11-2023 Note Hospitalist Progress Note 09/11/2023 Subjective: [...] PLT 95* 79* 61* BMP: Recent Labs 09/09/23184709/10/23 0622 09/11/23 0030 NA 136 138 137 K 4.3 4.0 3.4* CL 109* 113* 111* CO2 19* 21* 17* BUN 7 7 8 CREATININE 0.73 0.81 0.73 GLUCOSE 139* 90 76 CALCIUM 8.7 8.6 8.5 ANIONGAP 8 4 9 LIVER PROFILE: Recent Labs 09/09/23184709/10/2362109/11/23 0030 AST 124* 103* 98* ALT 59* [...] Judah Valentine MD Division of Hospitalist Medicine [facility] 09-11-2023 Note ADDICTION MEDICINE CONSULTATION H&P Patient: Carolina Bonilla Admit Date: 09/09/2023 Primary Care Physician: No primary care provider on file. Reason for Consultation: Substance use. __ HISTORY OF PRESENT ILLNESS Chief Complaint Patient presents with Abdominal Pain Carolina Bnoilla is a 47 y.o. year old obese, [...] Physical Exam Vi (more content not included)... [facility] 09-11-2023 Hospital Discharg e [facility] Jozef Cordova MD - 09/11/2023 11:48 AM EST Images from the original note were not included. [facility] PROGRAMS Addiction Medicine Intensive Outpatient Program [place] ([facility]): [phone] [place]: [phone] [place]: [phone] Behavioral Health Intensive Outpatient Program [place] ([facility]): [phone] [place]: [phone] [facility] [place] ([facility]): [phone] [place]: [phone] Partial Hospitalization Program [place] ([facility]): [phone] Tra[facility] [place] ([facility]): [phone] [facility] ([facility]): [phone] Alcoholics Anonymous Meetings [email or web address] [facility] [address], [address], [place] [address] Saima Tan MD - 09/15/2023 12:01 PM EST F/U with PCP, GI, Addiction Medicine documented in this encounter [facility] 09-11-2023 Consult note Associated Order (s): [...] 09/09/2023 Patient Name: CAROLINA BONILLA : 1975 [id number] Exam Date/Time: 09/09/2023 18:44 Procedure: XR CHEST [...] 455 ms QTC Interval 501 ms P [place] 55 degrees QRS [place] -7 degrees T Wave [place] 28 degrees HI Interval 157 ms CBC auto differential Collection [...] clinical information on the day of visit. [facility] 09-11-2023 Consult note Associated Order (s): IP [...] 09/09/2023 Patient Name: CAROLINA BONILLA : 1975 [id number] Exam Date/Time: 09/09/2023 18:44 Procedure: XR CHEST [...] 455 ms QTC Interval 501 ms P [place] 55 degrees QRS [place] -7 degrees T Wave [place] 28 degrees HI Interval 157 ms CBC auto differential Collection [...] day of visit. documented in this encounter [facility] 09-11-2023 Nurse Note Pt was found wandering the hospital by security, confused. Pt brought back by security and she said she was going outside to smoke. She was very upset that she could not have a smoke. Pt threatened to punch someone in the face. Pt is confused. [facility] 09-11-2023 Nurse Note Pt was found wandering the hospital by security, confused. Pt brought back by security and she said she was going outside to smoke. She was very upset that she could not have a smoke. Pt threatened to punch someone in the face. Pt is confused. documented in this encounter [facility] 09-10-2023 Note Attending History an d [...] hours. I revie (more content not included)... [facility] 09-10-2023 History and physical note Images [...] Behavior is cooperative. DATA: CBC: Recent Labs 09/09/23 184 WBC 9.4 RBC 4.56 HGB 10.4* HCT 32.4* MCV 71.1* RDW 21.6* PLT 95* BMP: Recent Labs 09/09/23 1848 NA 136 K 4.3 CL 109* CO2 19* BUN 7 CREATININE 0.73 GLUCOSE 139* CALCIUM 8.7 ANIONGAP 8 LIVER PROFILE: Recent Labs 09/09/23 1848 AST 124* ALT 59* BILITOT 2.7* ALKPHOS [...] MD Division of Hospitalist Medicine Inpatient Medical Services/[facility] Work Phone: 09-10-2023 History and physical note [...] MD Division of Hospitalist Medicine Inpatient Medical Services/[facility] documented in this encounter [facility] 09-10-2023 Emergency department Note Report given to 7W at this time. Transport en route. Laura Antony RN 09/10/23 050 [facility] 09-10-2023 Emergency department Note Report given to 7W at this time. Transport en route. Laura Antony RN 09/10/23 050 They are here now to transport the patient to [facility]ann [facility] 09/10/23 0447 [facility] ETA 0430 RN will call report in a few :) Afua S [facility] 09/10/23 0432 EMERGENCY DEPARTMENT ENCOUNTER Pt Name: Carolina Bonilla [...] Culture. Procedure Abnormality Status --------- ------ Complete Urinalysis[[id number]] Abnormal Final result Please view results for [...] care: None noted. Consulted general surgery, Dr. Huber. He recommended bowel rest, n.p.o. Dr. Huber recommended against NG tube placement as patient is a known cirrhosis patient and concern for esophageal varices. Patient will be admitted to the medical team for bowel rest, further management of small bowel obstruction, general surgery consultation. Diagnosis (mild, severe, acute, chronic, stable, unstable) small bowel obstruction. Disposition admission to medical service at [facility]. [facility] unfortunately does not have the capacity to perform paracentesis if deemed necessary. Given this illness provider would like patient be transferred to [facility] for small bowel obstruction management, general surgery consultation. Discussed with Dr. Smith who accepted patient for transfer. Patient will be transferred to [facility]. PROCEDURES: Unless otherwise noted below, none Procedures [...] Provider JOSE Collins 09/09/232117 Emergency Department Encounter [facility] ED Patient: Carolina Bonilla : 1975 Date of Evaluation: 09/09/2023 ED Supervising Physician: Lenny Macdonald MD I independently examined and evaluated Carolina Bonilla. This will serve as my Supervisory note as the director of primary care of record and shared attestation. I did [...] inpatient medicine team they recommend transfer to [facility] as they do not have IRP abilities [...] for clarification.) Lenny Macdonald MD Acute Care [facility] Lenny Macdonald MD 09/12/23 1500 Pt c/o abdominal pain that began this afternoon, states that she has hx of cirrhosis. Family states she seems off. documented in this encounter [facility] 09-10-2023 Emergency department Note They are here now to transport the patient to [facility] 09/10/23 0447 [facility] 09-10-2023 Emergency department Note [facility] ETA 0430 RN will call report in a few :) Afua Vuong Waldo 09/10/23 0432 [facility] 09-09-2023 Emergency department Triage note Pt c/o abdominal pain that began this afternoon, states that she has hx of cirrhosis. Family states she seems off. [facility] 09-09-2023 Physician Emergency department Note EMERGENCY DEPARTMENT [...] Culture. Procedure Abnormality Status --------- ------ Complete Urinalysis[[id number]] Abnormal Final result Please view results for [...] care: None noted. Consulted general surgery, Dr. Huber. He recommended bowel rest, n.p.o. Dr. Huber recommended against NG tube placement as patient is a known cirrhosis patient and concern for esophageal varices. Patient will be admitted to the medical team for bowel rest, further management of small bowel obstruction, general surgery consultation. Diagnosis (mild, severe, acute, chronic, stable, unstable) small bowel obstruction. Disposition admission to medical service at [facility]. [facility] unfortunately does not have the capacity to perform paracentesis if deemed necessary. Given this illness provider would like patient be transferred to [facility] for small bowel obstruction management, general surgery consultation. Discussed with Dr. Smith who accepted patient for transfer. Patient will be transferred to [facility]. PROCEDURES: Unless otherwise noted below, none Procedures [...] signed) Emergency Medicine Provider JOSE Collins 09/09/232117 [facility] 09-09-2023 Physician Emergency department Note Emergency Department Encounter [facility] ED Patient: Carolina Bonilla : 1975 Date of Evaluation: 09/09/2023 ED Supervising Physician: Lenny Macdonald MD I independently examined and evaluated Carolina Bonilla. This will serve as my Supervisory note as the director of primary care of record and shared attestation. I did [...] inpatient medicine team they recommend transfer to [facility] as they do not have IRP abilities [...] [employer] Lenny Macdonald MD 09/12/23 1500 [facility] Phone: 03-24-2023 Miscellaneous Notes Attempted to contact [...] advise. Miladis Blair documented in this encounter [facility] 01-27-2023 Miscellaneous Notes Pt notified. Melisa Vick [...] medication names. Please send RX to [facility] in [place] and advise patient when these have been ordered by provider per patient request. Patient has been identified by name and birthdate. Duration of symptoms: months Person calling: self Call patient at: at home [phone] (home) [phone] (cell) Was an appointment scheduled: No Closing statement: Results or non-symptom based questions: Thank you for calling [facility], your call will be returned within the next business day. [employer] documented in this encounter [facility] 01-25-2023 Miscellaneous Notes January 26, 2023 PID: [id number] Carolina Bonilla [facility] [address] [address] Dear Jakcie Bonilla, Your recent breast imaging exam on [...] who ordered/prescribed your screening mammogram: Please call [phone] or [phone]: [phone] to schedule an appointment for your additional [...] and reports are kept on file at [facility] as part of your permanent medical record, and are available for your continuing care. Thank you for allowing us to help in meeting your health care needs. Sincerely, Dr. Estrada Interpreting Radiologist [facility] (Additional imaging) documented in this encounter [facility] 12-02-2022 Note HNO ID: [id number] Author: JOSE Vega Service: ? Author Type: Physician Community Health Planning Director Type: Progress Notes Filed: 12/02/2022 1:01 PM Note Text: This note was created using [employer]. Subjective Carolina Bonilla is a 47 year [...] PAST SURGICAL HISTORY OF 2018 liver bx [facility] ALLERGIES Aspirin, Bupropion, Codeine, Prednisone, and Wellbutrin [...] and questions were (more content not included)... [facility] 12-02-2022 History of Presen t illness Narrative Images from the original note were not included. This note was created using [employer]. Subjective Carolina Bonilla is a 47 year [...] PAST SURGICAL HISTORY OF 2018 liver bx [facility] ALLERGIES Aspirin, Bupropion, Codeine, Prednisone, and Wellbutrin [...] evaluation. JOSE Vega documented in this encounter [facility] 10-02-2022 Miscellaneous Notes Left message of results on secure voicemail. Kayleen Rapp MA Please call patient and inform that her wound culture is negative. She can quit taking the ATB. She needs to follow up as directed. documented in this encounter [facility] 09-29-2022 Influenza virus A and B RNA and SARS-CoV-2 (COVID-19) N gene panel PHYLLIS+probe (Resp) COVID 19 RESULT: SARS-CoV-2 (Agent of COVID-19) Not Detected by RT-PCR or equivalent method. lyndon [id number] (EMILY)_EUA This test was developed and its performance characteristics determined by [facility]'s [facility]. This test has been authorized by FDA under an Emergency Use Authorization (EUA). This test has been validated in accordance with the FDA's Guidance Document Policy for Diagnostics Testing in Laboratories Certified to Perform High Complexity Testing under CLIA prior to Emergency use Authorization for Coronavirus Disease 2019 during the Public Health Emergency issued on November 24, 2019. Test performed by [facility], [facility] [place], [address] [place] [address]. INFLUENZA A PCR: Negative for Influenza A by RT-PCR INFLUENZA B PCR: Negative for Influenza B by RT-PCR [facility] Bacterial skin infection- Primary Unspecified local infection of skin and subcutaneous tissue Acne vulgaris Other acne Chronic midline low back pain with bilateral sciatica [facility] Encounter for screening mammogram for breast cancer [facility] Diagnosis Wound check, abscess- Primary Encounter for other specified aftercare [facility] Diagnosis Dermatitis- Primary Contact dermatitis and other eczema, due to unspecified cause [facility]* Diagnosis Chronic midline low back pain with bilateral sciatica [facility]* Diagnosis Cellulitis of chin- Primary Cellulitis and abscess of face Picking own skin Other disorder of impulse control URI, acute Acute upper respiratory infections of unspecified site [facility] Diagnosis Skin infection- Primary Unspecified local infection of skin and subcutaneous tissue [facility]* Diagnosis Cellulitis of chin Cellulitis and abscess of face documented in this encounter [facility] note* Diagnosis Low back pain, unspecified back pain laterality, unspecified chronicity, unspecified whether sciatica present documented in this encounter [facility] note* Diagnosis Encounter for screening mammogram for breast cancer documented in this encounter [facility] note* Diagnosis Small bowel obstruction (HCC)- Primary Unspecified intestinal obstruction Small bowel obstruction (HCC) Unspecified intestinal obstruction Polysubstance use disorder documented in this encounter [facility] for referral (narrative)* Diagnostic Procedure Only (Routine) - Pending Review Specialty Diagnoses / Procedures Referred By Marivel cao Referred To Contact [facility] Diagnoses Encounter for screening mammogram for breast cancer Procedures JEANETH SCREENING SCREENING MAMMOGRAPHY BI 2-[place] [address] [place] [address] [facility] [address] [place] [address] Referral ID Status Reason Start Date Expiration Date Visits Requested Visits Authorized [id number] Pending Review Auto-Generat ed Referral 03/24/2022 04/23/2023 1 1 [facility] (narrative)* Diagnostic Procedure Only (Routine) - Closed Specialty Diagnoses / Procedures Referred By Marivel cao Referred To Contact [facility] Diagnoses Encounter for screening mammogram for breast cancer Procedures JEANETH SCREENING SCREENING MAMMOGRAPHY BI 2-VIEW BREAST INC Dacia Rice MD [address] [place] [address] [facility] [address] [place] [address] Referral ID Status Reason Start Date Expiration Date V isits Requested Visits Authorized [id number] Closed Auto-Generate d Referral 03/24/2022 04/23/2023 1 1 [facility] for visit Narrative* Diagnostic Procedure Only (Routine) - Closed Specialty Diagnoses / Procedures Referred By Marivel cao Referred To Contact [facility] Diagnoses Encounter for screening mammogram for breast cancer Procedures JEANETH SCREENING SCREENING MAMMOGRAPHY BI 2-VIEW BREAST INC Dacia Rice MD [address] [place] [address] [facility] [address] [place] [address] Referral ID Status Reason Start Date Expiration Date V isits Requested Visits Authorized [id number] Closed Auto-Generate d Referral 03/24/2022 04/23/2023 1 1 [facility] Summary Purpose Family History No Family History Records FoundNo Family History Records FoundNo Family History Records FoundNo Family History Records FoundNo Family History Records Found Advance Directives No Advanced Directives Records FoundDocuments on File Type Date Recorded 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 Advance Directive(s) 08/05/2018 8:00 PM Advance Directive(s) 08/04/2018 9:24 AM Documents on File Type Date Recorded 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 anation Advance Directive(s) 08/05/2018 8:00 PM [...] Procedures CONSULT TO DERMATOLOGY Tresa Wells APRN.CNP [address] [place] [address] Referral ID Status Reason Start Date Expiration Date Visits Requested Visits Authorized [id number] Ref Not Required PCP Requested Referral 03/11/2022 03/11/2023 1 1 Specialty Diagnoses / Procedures Referred By Contac t Referred To Contact Saima Tan MD [address] [place] [address] Referral ID Status Reason Start Date Expiration Date V isits Requested Visits Authorized [id number] Pending Review 1 1 Additional Source Comments INFORMATION SOURCE (unrecogn ized section and content) DATE CREATED AUTHOR AUTHOR'S ORGANIZ ATION 09/03/2018 [facility] DATE CREATED AUTHOR AUTHOR'S ORGANIZ ATION 11/10/2021 [facility] DATE CREATED AUTHOR AUTHOR'S ORGANIZ ATION 09/24/2023 [facility] DATE CREATED AUTHOR AUTHOR'S ORGANIZ ATION 10/02/2023 [facility] Source Comments (unrecognize d section and content) In the event this informatio n is protected by the Federal Confidentiality of Alcohol and Drug Abuse Patient Records regulations: The Federal rules restrict any use of the information to criminally investigate or prosecute any alcohol or drug abuse patient.[facility] the event this information is protected by the Federal Confidentiality of Alcohol and Drug Abuse Patient Records regulations: The Federal rules restrict any use of the information to criminally investigate or prosecute any alcohol or drug abuse patient.[facility] the event this information is protected by the Federal Confidentiality of Alcohol and Drug Abuse Patient Records regulations: The Federal rules restrict any use of the information to criminally investigate or prosecute any alcohol or drug abuse patient.[facility] Hospital[facility] the event this information is protected by the Federal Confidentiality of Alcohol and Drug Abuse Patient Records regulations: The Federal rules restrict any use of the information to criminally investigate or prosecute any alcohol or drug abuse patient.[facility] Hospital[facility] the event this information is protected by the Federal Confidentiality of Alcohol and Drug Abuse Patient Records regulations: The Federal rules restrict any use of the information to criminally investigate or prosecute any alcohol or drug abuse patient.[facility] Hospital[facility] the event this information is protected by the Federal Confidentiality of Alcohol and Drug Abuse Patient Records regulations: The Federal rules restrict any use of the information to criminally investigate or prosecute any alcohol or drug abuse patient.[facility] Hospital[facility] the event this information is protected by the Federal Confidentiality of Alcohol and Drug Abuse Patient Records regulations: The Federal rules restrict any use of the information to criminally investigate or prosecute any alcohol or drug abuse patient.[facility] Hospital[facility] the event this information is protected by the Federal Confidentiality of Alcohol and Drug Abuse Patient Records regulations: The Federal rules restrict any use of the information to criminally investigate or prosecute any alcohol or drug abuse patient.[facility] Hospital[facility] the event this information is protected by the Federal Confidentiality of Alcohol and Drug Abuse Patient Records regulations: The Federal rules restrict any use of the information to criminally investigate or prosecute any alcohol or drug abuse patient.[facility] Hospital[facility] the event this information is protected by the Federal Confidentiality of Alcohol and Drug Abuse Patient Records regulations: The Federal rules restrict any use of the information to criminally investigate or prosecute any alcohol or drug abuse patient.[facility] HospitalIn the event this information is protected by the Federal Confidentiality of Alcohol and Drug Abuse Patient Records regulations: The Federal rules restrict any use of the information to criminally investigate or prosecute any alcohol or drug abuse patient.[facility] HospitalIn the event this information is protected by the Federal Confidentiality of Alcohol and Drug Abuse Patient Records regulations: The Federal rules restrict any use of the information to criminally investigate or prosecute any alcohol or drug abuse patient.[facility] HospitalIn the event this information is protected by the Federal Confidentiality of Alcohol and Drug Abuse Patient Records regulations: The Federal rules restrict any use of the information to criminally investigate or prosecute any alcohol or drug abuse patient.[facility] HospitalIn the event this information is protected by the Federal Confidentiality of Alcohol and Drug Abuse Patient Records regulations: The Federal rules restrict any use of the information to criminally investigate or prosecute any alcohol or drug abuse patient.[facility] HospitalIn the event this information is protected by the Federal Confidentiality of Alcohol and Drug Abuse Patient Records regulations: The Federal rules restrict any use of the information to criminally investigate or prosecute any alcohol or drug abuse patient.[facility] HospitalIn the event this information is protected by the Federal Confidentiality of Alcohol and Drug Abuse Patient Records regulations: The Federal rules restrict any use of the information to criminally investigate or prosecute any alcohol or drug abuse patient.[facility] HospitalIn the event this information is protected by the Federal Confidentiality of Alcohol and Drug Abuse Patient Records regulations: The Federal rules restrict any use of the information to criminally investigate or prosecute any alcohol or drug abuse patient.[facility] HospitalIn the event this information is protected by the Federal Confidentiality of Alcohol and Drug Abuse Patient Records regulations: The Federal rules restrict any use of the information to criminally investigate or prosecute any alcohol or drug abuse patient.[facility] HospitalIn the event this information is protected by the Federal Confidentiality of Alcohol and Drug Abuse Patient Records regulations: The Federal rules restrict any use of the information to criminally investigate or prosecute any alcohol or drug abuse patient.[facility] HospitalIn the event this information is protected by the Federal Confidentiality of Alcohol and Drug Abuse Patient Records regulations: The Federal rules restrict any use of the information to criminally investigate or prosecute any alcohol or drug abuse patient.[facility] HospitalIn the event this information is protected by the Federal Confidentiality of Alcohol and Drug Abuse Patient Records regulations: The Federal rules restrict any use of the information to criminally investigate or prosecute any alcohol or drug abuse patient.[facility] Reason for Visit (unrecogniz ed section and [...] (HCC) Procedures . Cindi Smith MD [address] [address] [facility] 7w Respiratory [address] [facility] [place] [address] Referral ID Status Reason Start Date Expiration Date Visits Re quested Visits Authorized [id number] 1 1 Care Teams (unrecognized sec tion and content) [employer] Building [employer] Engineer Relationship Specialty Start Date End Date Dacia Leo MD [address] [place] [address] PCP - General Family Practice 08/24/10 [employer] Building Energy Engineer Relationship Specialty Start Date End Date Dacia Leo MD [address] [place] [address] PCP - General Family Practice 08/24/10 [employer] Building Energy Engineer Relationship Specialty Start Date End Date Dcaia Leo MD [address] [place] [address] PCP - General Family Practice 08/24/10 [employer] Building Energy Engineer Relationship Specialty Start Date End Date Dacia Leo MD [address] [place] [address] PCP - General Family Practice 08/24/10 [employer] Building Energy Engineer Relationship Specialty Start Date End Date Dacia Leo MD [address] [place] [address] PCP - General Family Practice 08/24/10 [employer] Building Energy Engineer Relationship Specialty Start Date End Date Dacia Leo MD [address] [place] [address] PCP - General Family Practice 08/24/10 [employer] Building Energy Engineer Relationship Specialty Start Date End Date Dacia Leo MD [address] [place] [address] PCP - General Family Practice 08/24/10 Green Building Energy Engineer Relationship Specialty Start Date End Date Dacia Leo MD [address] [place] [address] PCP - General Family Practice 08/24/10 [employer] Building Energy Engineer Relationship Specialty Start Date End Date Dacia Leo MD [address] [place] [address] PCP - General Family Practice 08/24/10 Green Building Energy Engineer Relationship Specialty Start Date End Date Dacia Leo MD [address] [place] [address] PCP - General Family Medicine 08/24/10 Green Building Energy Engineer Relationship Specialty Start Date End Date Dacia Leo MD [address] [place] [address] PCP - General Family Medicine 08/24/10 Green Building Energy Engineer Relationship Specialty Start Date End Date Dacia Leo MD [address] [place] [address] PCP - General Family Medicine 08/24/10 Green Building Energy Engineer Relationship Specialty Start Date End Date Dacia Leo MD [address] [place] [address] PCP - General Family Medicine 08/24/10 Green Building Energy Engineer Relationship Specialty Start Date End Date Dacia Leo MD [address] [place] [address] PCP - General Family Medicine 08/24/10 Green Building Energy Engineer Relationship Specialty Start Date End Date Dacia Leo MD [address] [place] [address] PCP - General Family Medicine 08/24/10 Green Building Energy Engineer Relationship Specialty Start Date End Date Dacia Leo MD [address] [facility] [place] [address] PCP - General Family Medicine 08/24/10 Green Building Energy Engineer Relationship Specialty Start Date End Date Dacia Leo MD [address] [place] [address] PCP - General Family Medicine 08/24/10 Scheduled [...] ordered. 0925 (Given - Provider: Kylah Parks, RN)1335 (Given - Provider: Kylah Parks, RN)2117 (Given - Provider: Harjit Parsons, RN) 0401 (Given - Provider: Harjit Parsons RN)0832 (Given - Provider: Kylah Parks, RN)1231 (Given - Provider: Kylah Parks, RN)1953 (Given - Provider: Haritha Martinez, NASH) 0157 (Given - Provider: Haritha Martinez, NASH)0626 (Given - Provider: Haritha Martinez, NASH) naloxone (Narcan) injection 0.4 mg 0.4 mg, IntraVENous, Every 5 min PRN, opioid reversal, respiratory depression, Starting on Tue09/14/23 at 0915, +++ For RR <10, pinpoint pupils, over sedation for opioid reversal - MUST notify weapons system instrument mechanic provider immediately after first dose, may give [...] 2 hour PRN, smoking cessation, Starting on 09/11/23 at 1134 ondansetron (Zofran) injection 4 mg(Linked [...] - Provider: Haritha Martinez RN) sodium chloride ([place]) 0.65 % nasal spray 2 spray 2 [...] BE BASED ON THE PRIMARY CLINICAL RECORDS. [facility]. provides no warranty or guarantee of the accuracy or completeness of information in this document.
[2023-10-06 19:09] LABS: Absolute Neutrophil Count 4.6 X10^3/uL (2.0-7.7); Basophil# 0.06 X10^3/uL; Basophil% 0.8 % (0-1); Eosinophil# 0.18 X10^3/uL; Eosinophils% 2.5 % (0-5); Hematocrit 32.4 % (37-47); Hemoglobin 9.6 g/dL (12.0-15.0); Lymphocyte % 23.6 % (19-41); Mean Corp Hgb Conc 29.6 g/dL (32-36); Mean Corpuscular Hgb 22.6 pg (27.0-32.0); Mean Corpuscular Volume 76.4 fL (81-99); Monocyte# 0.59 X10^3/uL; Monocyte% 8.2 % (0-10); NRBC Flagged by Analyzer 0 % (0-5); Neutrophil # 4.64 X10^3/uL (2.7-7.7); Neutrophil % 64.6 % (47-70); POSITIVE COUNT YES; POSITIVE MORPHOLOGY YES; Platelet Count 76 K/mm3 (150-450); RBC Distribution Width CV 23.3 % (11.6-14.6); RBC Distribution Width SD 63.3 fl (35.1-43.9); Red Blood Count 4.24 M/mm3 (4.2-5.4); White Blood Count 7.2 K/mm3 (4.4-11.0)
[2023-10-06 19:19] LABS: International Normalized Ratio 1.8; Prothrombin Time (Protime)PT. 21.1 SECONDS (11.7-14.9)
[2023-10-06 19:26] LABS: AST(SGOT) 144 U/L (15-37); Alanine Aminotransfer ALT/SGPT 70 U/L (13-56); Albumin, Serum 2.6 g/dL (3.2-5.0); Alkaline Phosphatase 153 U/L (45-117); Anion Gap 5 (5-15); BUN 6 mg/dL (7-18); BUN/Creat Ratio 6.9 RATIO (10-20); Bilirubin, Direct 0.94 mg/dL (0.00-0.30); Calcium,Total 8.6 mg/dL (8.5-10.1); Chloride 110 mmol/L (98-107); Creatinine, Serum 0.87 mg/dL (0.55-1.02); EST Glomerular Filtration Rate 73 mL/min (>60); Est Glom Filt Rate - Afr Amer 89 mL/min (>60); Estimated Creatinine Clearance 83.81 ml/min; Globulin 4.8 g/dL (2.2-4.2); Glucose 103 mg/dL (74-106); Lipase 38 U/L (13-75); Potassium 3.3 mmol/L (3.5-5.1); Protein, Total 7.4 g/dL (6.4-8.2); Sodium Level 140 mmol/L (136-145)
--- NOTE | 2023-10-06 19:26 | ED.VIS.GI ---
HPI HPI - GI History of Present Illness Chief Complaint: Abd Pain Narrative Narrative: 66-year-old female with history of cirrhosis, ascites,, abdominal pain. Patient states she has a history of cirrhosis and has paracentesis every couple of weeks. She sees Dr. Porras. Patient states that she recently was started on ever house with a roommate and had her medications left behind. She states that prior to this she could not fathom how to take her medications she states it was too many meds and she did not take them. Patient states her last medication prescription refill was here from the hospital. Patient does admit to nausea/vomiting/increasing abdominal pain and abdominal distention. No fevers at home. Patient also tells me she is not sure why she had Boces as she is not an alcoholic and has not had drinking issues since she was a teenager. Patient does not get as she had hepatitis C as well PFSH PFSH Medical History Acute insomnia Anemia Anxiety and depression Ascites Chronic anemia Cirrhosis of liver COPD (chronic obstructive pulmonary disease) Difficulty chewing Gastric reflux Hepatitis History of diverticulitis History of edema History of pain when walking History of renal disease Hyperbilirubinemia Injury of head and neck Loss of consciousness Low iron Marijuana use Migraine headache MRSA infection Obesity Open wound Polysubstance abuse Rash Restless legs Seizures Shortness of breath on exertion Smoker Substance abuse Thrombocytopenia Tobacco use Home Medications desvenlafaxine 100 mg tablet,extended release 24 hour 100 mg PO DAILY NERVE PAIN 02/20/19 [History Last Taken Unknown] Vitamin D3 1,250 mcg OTHER QWEEK SUPPLEMENT 05/20/22 [History Last Taken Unknown] topiramate 100 mg tablet 100 mg PO BID PER GASTRO 05/20/22 [History Last Taken Unknown] trazodone 100 mg tablet 100 mg PO QHS SLEEP #1 TAB 05/21/22 [Rx Last Taken Unknown] aripiprazole 30 mg tablet 30 mg PO DAILY 09/14/22 [History Last Taken Unknown] gabapentin 100 mg capsule 100 mg PO Q12H 07/20/23 [History Last Taken Unknown] lactulose 20 gram/30 mL oral solution 20 g (30 mL) PO TID 30 days #2,880 mL 07/22/23 [Rx Last Taken Unknown] nadolol 20 mg tablet 20 mg PO DAILY 30 days #30 tabs 07/22/23 [Rx Last Taken Unknown] spironolactone 50 mg tablet 75 mg (1.5 x 50 mg) PO DAILY 30 days #45 tabs 07/22/23 [Rx Last Taken Unknown] prednisone 20 mg tablet 20 mg PO DAILY #5 tabs 09/24/23 [Rx Last Taken Unknown] Allergy/AdvReac Type Severity Reaction Status Date / Time bupropion HCl Allergy SEIZURES Verified 10/06/23 17:11 [From Wellbutrin] codeine Allergy Rash Verified 10/06/23 17:11 Family History Mother Diabetes Father Cancer HX Throat CA. 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, marijuana, heroin and methamphetamine seatbelt use: always do you feel safe at home: Yes ROS ROS ED Constitutional Constitutional ED: Denies chills, fever(s) or sweats Eyes Eyes: Denies blurry vision or change in vision ENT ENT ED: Denies ear pain or sore throat Cardiovascular Cardiovascular: Denies chest pain, palpitations or racing heartbeat Respiratory/Chest Respiratory/Chest: Denies cough, dyspnea or sputum Gastrointestinal Gastrointestinal: Reports abdominal pain, nausea and vomiting; Denies constipation or diarrhea Genitourinary Genitourinary ED: Denies dysuria, hematuria or urinary frequency Musculoskeletal Musculoskeletal: Denies arthralgias, myalgias or neck pain Integumentary Denies abscess, Abrasions or rash Neurologic Neurologic: Denies headache(s), paresthesias or weakness Psychiatric Psychiatric: Denies anxiety, depression, suicidal ideation or suicidal thoughts Endocrine Endocrinology: Denies polydipsia or polyuria EXAM Physical Exam Const Vital Signs: 10/06/23 17:08 10/06/23 21:47 Temperature 97 F L Temperature Source Temporal Pulse Rate 80 Respiratory Rate 16 Blood Pressure 130/85 H 106/74 Blood Pressure Mean 100 84 Pulse Ox 100 Oxygen Delivery Method Room Air Positive well nourished and obese General Appearance ED: NAD Nutritional Appearance: obese HEENT Reports moist mucous membranes HEENT Narrative: There is a sore on the roof of the mouth approximately 1 cm circular which appears ulcerated. There is no plaques otherwise. Oropharynx patent without stridor. Tongue normal. No sublingual edema. Including close than normal. normocephalic and atraumatic Mouth ED: Yes lips normal, Yes tongue normal and Yes salivary gland normal Mouth: lips normal, tongue normal and salivary gland normal Throat: posterior oropharynx normal Neck no lymphadenopathy and supple Resp normal respiratory effort Auscultation: Negative for rales, rhonchi or wheezes Cardio regular rate and regular rhythm GI Palpation: tender other (Generally diffuse abdominal pain) MDM MDM MDM Narrative Medical decision making narrative: Patient presenting with abdominal pain differential includes gastritis, GERD, colitis, diverticulitis, cholecystitis, dehydration, anemia, electrolyte abnormalities, SBP, cirrhosis, ascites, transaminitis. CBC was obtained to assess white blood cell count, hemoglobin, platelets. CMP to assess liver function, renal function, electrolytes. Lipase to assess for pancreatitis. Patient medicated morphine, Zofran. She is given IV fluids. CBC shows no significant leukocytosis with white blood cell count of 7.2. Hemoglobin near baseline at 9.6. INR normal at 1.8. Renal function and electrolytes within normal limits with exception of potassium 3.3. AST 144, ALT 70, alkaline phosphatase 153. Lipase was normal. CT of the abdomen pelvis with IV contrast shows ascites and also possibility of a calculus cholecystitis. Patient does not specifically have any right upper quadrant pain. Her LFTs are always elevated. Discussed with Dr. Porras who recommend admission for paracentesis. She will be covered with Rocephin. She was discussed with hospitalist for admission. Impression: 1. abdominal pain 2. Medical noncompliance 3. Nausea/vomiting 4. Ascites Lab Data Attestation: I reviewed the patient's lab results. Labs: Laboratory Results - last 24 hr 10/06/23 10/06/23 18:30 19:00 WBC 7.2 RBC 4.24 Hgb 9.6 L Hct 32.4 L MCV 76.4 L MCH 22.6 L MCHC 29.6 L RDW Std Deviation 63.3 H RDW Coeff of Katalina 23.3 H Plt Count 76 L MPV TNP Immature Gran % (Auto) 0.300 Neut % (Auto) 64.6 Lymph % (Auto) 23.6 Morrow % (Auto) 8.2 Eos % (Auto) 2.5 Baso % (Auto) 0.8 Absolute Neuts (auto) 4.6 Absolute Lymphs (auto) 1.70 Nucleated RBC % 0 Platelet Estimate MOD DEC RBC Morphology N CHROM Hypochromasia 1+ Anisocytosis 1+ Microcytosis 1+ Ovalocytes RARE PT 21.1 H INR 1.8 Sodium 140 Potassium 3.3 L Chloride 110 H Carbon Dioxide 25.0 Anion Gap 5 BUN 6 L Creatinine 0.87 Estim Creat Clear Calc 83.81 Est GFR (MDRD) Af Amer 89 Est GFR (MDRD) Non-Af 73 BUN/Creatinine Ratio 6.9 L Glucose 103 Calcium 8.6 Total Bilirubin 2.20 H Direct Bilirubin 0.94 H AST 144 H ALT 70 H Alkaline Phosphatase 153 H Total Protein 7.4 Albumin 2.6 L Globulin 4.8 H Lipase 38 Radiography Diagnostic Testing: Clinical Impression(s) from Imaging Studies Abdomen/Pelvis CT 10/06/23 19:38 IMPRESSION: Cirrhotic liver with extensive and unchanged abdominal ascites Stable splenomegaly Abnormally distended gallbladder with gallbladder enhancement and wall thickening but no gallstones or biliary dilatation is noted. Acalculus cholecystitis can have this appearance Nonobstructing nephrolithiasis Stable mild nonspecific dilatation of the right renal pelvis and proximal right ureter without obstructing stone Some mucosal thickening in the stomach consistent with gastritis Electronically Signed: Jorge Mcknight MD at 20:37 EST , Discharge Plan Triage Chief Complaint: Abd Pain ED Provider: Darius Rosales Dx/Rx/DC Orders Prescriptions: No Action desvenlafaxine 100 mg tablet extended release 24hr 100 mg PO DAILY spironolactone 50 mg tablet 75 mg PO DAILY 30 Days Qty: 45 2RF nadolol 20 mg tablet 20 mg PO DAILY 30 Days Qty: 30 2RF Rx Instructions: Hold for heart less than 50 or systolic blood pressure less than 100 mmHg. lactulose 20 gram/30 mL solution 20 g PO TID 30 Days Qty: 2880 2RF Patient Comments: HAS BUT NOT USING Rx Instructions: And adjust the frequency to have him goal of 3 bowel movements per day Vitamin D3 1,250 mcg OTHER QWEEK Rx Instructions: TAKES ON MODAY BY MOUTH topiramate 100 mg tablet 100 mg PO BID Rx Instructions: BEFORE MEALS trazodone 100 mg tablet 100 mg PO QHS Qty: 1 0RF aripiprazole 30 mg tablet 30 mg PO DAILY prednisone 20 mg tablet 20 mg PO DAILY Qty: 5 0RF gabapentin 100 mg capsule 100 mg PO Q12H Patient Comments: Take 1 capsule by mouth twice daily Primary Care Provider: Ang Acosta Referrals: Ang Acosta MD [Primary Care Provider] -
--- NOTE | 2023-10-06 19:38 | CT_ITS ---
STUDY: CT ABDOMEN AND PELVIS WITH CONTRAST REASON FOR EXAM: Female, 47 years old. Diffuse abdominal pain RADIATION DOSAGE (If Supplied By Facility): CTDIvol = ( 17.45 ) mGy, DLP = ( 1112.86 ) mGycm TECHNIQUE: Transaxial images were obtained from the dome of the diaphragm to the symphysis pubis without oral contrast. IV 100mL Isovue-370 was administered. Sagittal and coronal images were reconstructed. Individualized dose optimization techniques were used for this CT. COMPARISON: 07/21/2023 FINDINGS: The visualized lung bases are unremarkable. The visualized portions of the heart are within normal limits. There is a diffuse contour abnormality of the liver consistent with cirrhotic changes. There is extensive associated ascites. Gallbladder is distended show some wall thickening and enhancement without gallstones or biliary dilatation. Stable splenomegaly. Normal pancreas. Normal bilateral adrenal glands. Stable nonobstructing bilateral renal stones. Stable mild dilatation of the right UPJ and proximal right ureter without change since the previous study. No obstructing stone noted. There is nonspecific submucosal thickening in the stomach suggestive of gastritis. Normal small intestine. There are a few scattered colonic diverticula without CT evidence of acute diverticulitis. There is non-visualization of the appendix. Normal abdominal aorta. Normal inferior vena cava. There are subcentimeter in short axis dimension mesenteric and retroperitoneal lymph nodes Bladder is incompletely distended. Uterus is present, no suspicious adnexal mass. Normal abdominal wall. Normal osseous structures. CT/Abdomen/Pelvis W IV Cont ONLY IMPRESSION: Cirrhotic liver with extensive and unchanged abdominal ascites Stable splenomegaly Abnormally distended gallbladder with gallbladder enhancement and wall thickening but no gallstones or biliary dilatation is noted. Acalculus cholecystitis can have this appearance Nonobstructing nephrolithiasis Stable mild nonspecific dilatation of the right renal pelvis and proximal right ureter without obstructing stone Some mucosal thickening in the stomach consistent with gastritis Electronically Signed: Jorge Mcknight MD at 20:37 EST ,
[2023-10-06 19:43] LABS: Differential Indicated SCAN CRITERIA MET
[2023-10-06 19:44] LABS: Anisocytosis 1+; Hypochromasia 1+; Microcytosis 1+; Ovalocyte RARE; Platelet Estimate MOD DEC (ADEQ); Red Cell Morphology N CHROM NORMAL (NORM C&C)
[2023-10-06] MEDS: Morphine 4 MG/ML Syringe IV (19:48)
[2023-10-06] MEDS: Ondansetron 4 MG/2 ML Vial IV ×2 (19:48→22:22)
[2023-10-06 21:47] VITALS: BP 106/74
--- NOTE | 2023-10-06 22:11 | HP.PCM_ITS ---
HPI - General General Date of Admission: 10/06/23 Date of Service: 10/06/23 Chief Complaint: abdominal pain HPI Narrative CAROLINA HIGHTOWER, is a 47 F with a PMH as outlined who presents via the ED on 10/06/2023 with a complaint of abdominal pain. She has a history of cirrhosis and sees Dr Collier. She has not been compliant with her meds because she says she is not sure what she is supposed to be taking and she recently also moved and had too much to deal with, so she stopped taking her meds. SHe denies any fever or chills, nausea, vomiting or diarrhea. She does admit to acute urinary symptoms like dysuria and frequency of urination. Review of systems is otherwise negative. Vitals in the ED were BP of 105/76, LA of 66, RR of 16 and temp of 98.2F. She was saturating at 98% on room air. CBC showed hb of 9.6, wbc of 7.2, platelets of 76. Chemistry showed sodium of 140 with potassium of 3.3 and chloride of 110. Creatinine was 0.87. Total bilirubin is 2.2 and AST, ALT and ALP elevated. CT of the abdomen and pelvis showed cirrhotic liver with extensive and unchanged abdominal ascites with stable splenomegaly and abnormally distended gallbladder with gallbladder enhancement and wall thickening but no gallstones or biliary dilatation noted nonobstructing nephrolithiasis.She is being admitted to be managed for abdominal pain likely due to ascites from liver cirrhosis [facility] Medical History Acute insomnia Anemia Anxiety and depression Ascites Chronic anemia Cirrhosis of liver COPD (chronic obstructive pulmonary disease) Difficulty chewing Gastric reflux Hepatitis History of diverticulitis History of edema History of pain when walking History of renal disease Hyperbilirubinemia Injury of head and neck Loss of consciousness Low iron Marijuana use Migraine headache MRSA infection Obesity Open wound Polysubstance abuse Rash Restless legs Seizures Shortness of breath on exertion Smoker Substance abuse Thrombocytopenia Tobacco use Home Medications desvenlafaxine 100 mg tablet,extended release 24 hour 100 mg PO DAILY NERVE PAIN 02/20/19 [History Last Taken Unknown] Vitamin D3 1,250 mcg OTHER QWEEK SUPPLEMENT 05/20/22 [History Last Taken Unknown] topiramate 100 mg tablet 100 mg PO BID PER GASTRO 05/20/22 [History Last Taken Unknown] trazodone 100 mg tablet 100 mg PO QHS SLEEP #1 TAB 05/21/22 [Rx Last Taken Unknown] aripiprazole 30 mg tablet 30 mg PO DAILY 09/14/22 [History Last Taken Unknown] gabapentin 100 mg capsule 100 mg PO Q12H 07/20/23 [History Last Taken Unknown] lactulose 20 gram/30 mL oral solution 20 g (30 mL) PO TID 30 days #2,880 mL 07/22/23 [Rx Last Taken Unknown] nadolol 20 mg tablet 20 mg PO DAILY 30 days #30 tabs 07/22/23 [Rx Last Taken Unknown] spironolactone 50 mg tablet 75 mg (1.5 x 50 mg) PO DAILY 30 days #45 tabs 07/22/23 [Rx Last Taken Unknown] prednisone 20 mg tablet 20 mg PO DAILY #5 tabs 09/24/23 [Rx Last Taken Unknown] Allergy/AdvReac Type Severity Reaction Status Date / Time bupropion HCl Allergy SEIZURES Verified 10/06/23 17:11 [From Wellbutrin] codeine Allergy Rash Verified 10/06/23 17:11 Family History Mother Diabetes Father Cancer HX Throat CA. 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, marijuana, heroin and methamphetamine seatbelt use: always do you feel safe at home: Yes ROS Review of Systems ROS Unobtainable: Denies due to encephalopathy Constitutional Constitutional: Reports fatigue; Denies anorexia, chills or fever(s) Eyes Eyes: Denies change in vision ENT HEENT: Denies dysphagia Cardiovascular Cardiovascular: Denies chest pain, edema, palpitations or paroxysmal nocturnal dyspnea Respiratory/Chest Respiratory/Chest: Denies cough, shortness of breath at rest or shortness of breath with exertion Gastrointestinal Gastrointestinal: Reports abdominal pain; Denies constipation, melena, nausea or vomiting Genitourinary Genitourinary: Reports dysuria and urinary frequency Musculoskeletal Musculoskeletal: Reports back pain; Denies joint pain or joint swelling Integumentary Integumentary: Denies dry skin or jaundice Neurologic Neurologic: Denies confusion, dizziness, focal weakness or headache(s) Psychiatric Psychiatric: Denies anxiety or depression Endocrine Endocrinology: Denies change in body appearance Vital Signs Vital Signs Vital Signs: 10/06/23 17:08 10/06/23 21:47 Temperature 97 F L Temperature Source Temporal Pulse Rate 80 Respiratory Rate 16 Blood Pressure 130/85 H 106/74 Blood Pressure Mean 100 84 Pulse Ox 100 Oxygen Delivery Method Room Air Weight Weight: 208 lb 6.548 oz Body Mass Index (BMI) 38.1 Physical Exam Const alert, oriented x3 and no apparent distress Constitutional Narrative: obese General Appearance: cooperative and well developed HEENT normocephalic, head/scalp atraumatic and moist oral mucous membranes Eyes PERRL and EOMs intact bilaterally Neck no lymphadenopathy and supple General: trachea midline Lymph Lymphatic: no lymphadenopathy noted Resp normal respiratory effort, normal air movement and clear to auscultation bilaterally Cardio regular rate, regular rhythm, S1 normal heart sound, S2 normal heart sound and no murmurs GI GI Narrative: abdomen significantly distended, with positive fluid thrill, minimal generalised tenderness Extremity normal capillary refill, no clubbing, cyanosis or edema and no calf tenderness General Extremity: no tenderness to palpation of joints or extremities Skin General Skin Exam: no breakdown Neuro CN's II-XII intact bilaterally, no focal motor deficits and no sensory deficits noted Coordination / Balance: [id number] test normal Motor Exam: strength 5/5 throughout Psych thought process normal and cooperative Appearance: appropriate Results Lab / Micro Data 10/06/23 18:30 10/06/23 18:30 Labs: Laboratory Results - last 24 hr 10/06/23 18:30: WBC 7.2, RBC 4.24, Hgb 9.6 L, Hct 32.4 L, MCV 76.4 L, MCH 22.6 L , MCHC 29.6 L, RDW Std Deviation 63.3 H, RDW Coeff of Katalina 23.3 H, Plt Count 76 L , MPV TNP, Immature Gran % (Auto) 0.300, Neut % (Auto) 64.6, Lymph % (Auto) 23.6, [place] % (Auto) 8.2, Eos % (Auto) 2.5, Baso % (Auto) 0.8, Absolute Neuts (auto) 4.6, Absolute Lymphs (auto) 1.70, Nucleated RBC % 0, Platelet Estimate MOD DEC, RBC Morphology N CHROM, Hypochromasia 1+, Anisocytosis 1+, Microcytosis 1+, Ovalocytes RARE, Sodium 140, Potassium 3.3 L, Chloride 110 H, Carbon Dioxide 25.0, Anion Gap 5, BUN 6 L, Creatinine 0.87, Estim Creat Clear Calc 83.81, Est GFR (MDRD) Af Amer 89, Est GFR (MDRD) Non-Af 73, BUN/Creatinine Ratio 6.9 L, Glucose 103, Calcium 8.6, Total Bilirubin 2.20 H, Direct Bilirubin 0.94 H, AST 144 H, ALT 70 H, Alkaline Phosphatase 153 H, Total Protein 7.4, Albumin 2.6 L, Globulin 4.8 H, Lipase 38 10/06/23 19:00: PT 21.1 H, INR 1.8 Imagaing Radiology Impression Abdomen/Pelvis CT 10/06/23 19:38 IMPRESSION: Cirrhotic liver with extensive and unchanged abdominal ascites Stable splenomegaly Abnormally distended gallbladder with gallbladder enhancement and wall thickening but no gallstones or biliary dilatation is noted. Acalculus cholecystitis can have this appearance Nonobstructing nephrolithiasis Stable mild nonspecific dilatation of the right renal pelvis and proximal right ureter without obstructing stone Some mucosal thickening in the stomach consistent with gastritis Electronically Signed: Jorge Mcknight MD at 20:37 EST , Assessment & Plan Assessment/Plan (1) Cirrhosis of liver: QUALIFIERS: Hepatic cirrhosis type: unspecified hepatic cirrhosis Ascites presence: with ascites Qualified Code(s): K74.60 - Unspecified cirrhosis of liver; R18.8 - Other ascites (2) Ascites: QUALIFIERS: Ascites type: due to alcoholic hepatitis Qualified Code(s): K70.11 - Alcoholic hepatitis with ascites PLAN: Plan #Abdominal ascites in the setting of alcoholic liver cirrhosis * admitted o/a of abdominal pain * last had paracentesis about 2-3 weeks ago. Usually has it every 2-3 weeks * CT abdomen showed massive ascites and distended gallbladder with some wall thickening and enhancement but without gallstones or biliary dilatation. It is difficult to check [place] sign due to massive ascites. * Admit to MedSurg. For paracentesis tomorrow. * Was on IV ceftriaxone. Get urine cultures and urinalysis as patient is complaining of urinary symptoms * Get gallbladder ultrasound tomorrow to further evaluate gallbladder. * On nadolol and prednisone as well as lactulose * * #Alcoholic liver cirrhosis: On lactulose, nadolol and spironolactone #Depression: On aripiprazole and desvenlafaxine #COPD: Not in exacerbation. On breathing treatments bronchodilators. #Alcohol use disorder * Patient states he still drinks but occasionally and last drink was at [place] and [facility] . Counseled to quit. Will hold off on starting alcohol withdrawal protocol now as there are no signs of withdrawal. * DVT prophylaxis: SCDs Charges/Coding Visit Charges Inpatient E&M: 36817 Init Hosp L3
[2023-10-06] MEDS: Ceftriaxone 1 GM/50 ML BAG IV (22:22)
[2023-10-06] MEDS: 0.9% Normal Saline (1000mL) 1,000 ML 999 ML IV (22:22)
[2023-10-06] MEDS: fentaNYL 100 MCG/2 ML Ampul 50 MCG IV (22:22)
--- OUTSIDE RECORDS SUMMARY | 2023-10-06 22:25 | XMS RPT_ITS | CCD ---
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 Name Role Phone GELA AGUDELO Unavailable Unavailable [...] sources) Aspirin; Translations: [ASPIRIN] Drug Allergy 5 [facility] (20 sources) buPROPion; Translations: [BUPROPION HCL] Drug Allergy 3 Other: See Comments [facility] (20 sources) Codeine; Translations: [CODEINE] Drug Allergy 5 Rash, Hives [facility] (20 sources) buPROPion; Translations: [BUPROPION] Drug Allergy 3 Other: See Comments [facility] (20 sources) predniSONE; Translations: [PREDNISONE] Drug Allergy 9 Rash [facility] Work Phone: (3 sources) Prednisone Propensity to adverse reactions [address] [facility] Medications Current Medications Medication Drug Class(es) [...] human 25 % IV solution 50 g [id number] 200 actuat albuterol 0.09 mg/actuat metered dose [...] 38.38 kg/m2 Lenny Macdonald MD Work Phone: [facility] [place] 09-15-2023 12:01-0500 Body weight 95.21 kg Lenny Macdonald MD Work Phone: [employer] [place] 09-15-2023 11:39-0500 Body height 157.5 cm Lenny Macdonald MD Work Phone: [employer] [place] 09-15-2023 06:02-0500 Body temperature 97.3 [degF] Lenny Macdonald MD Work Phone: [facility] [place] 09-15-2023 06:02-0500 Diastolic blood pressure 53 mm[Hg] Lenny Macdonald MD Work Phone: [employer] [place] 09-15-2023 06:02-0500 Heart rate 68 /min Lenny Macdonald MD Work Phone: [employer] [place] 09-15-2023 06:02-0500 Respiratory rate 16 /min Lenny Macdonald MD Work Phone: [employer] [place] 09-15-2023 06:02-0500 SaO2% (BldA) [Mass fraction] 98 % Lenny Macdonald MD Work Phone: [employer] [place] 09-15-2023 06:02-0500 Systolic blood pressure 91 mm[Hg] Lenny Macdonald MD Work Phone: [employer] [place] 12-02-2022 12:49-0500 Body temperature 98.29 [degF] Joselito GARCIA Work Phone: [facility] 12-02-2022 12:49-0500 Body weight 94.62 kg Krislyn Aberegg PA Work Phone: [facility] 12-02-2022 12:49-0500 Diastolic blood pressure 78 mm[Hg] Krislyn Aberegg PA Work Phone: [facility] 12-02-2022 12:49-0500 Heart rate 64 /min Krislyn Aberegg PA Work Phone: [facility] 12-02-2022 12:49-0500 Respiratory rate 16 /min Krislyn Aberegg PA Work Phone: [facility] 12-02-2022 12:49-0500 SaO2% (BldA) [Mass fraction] 98 % Krislyn Aberegg PA Work Phone: [facility] 12-02-2022 12:49-0500 Systolic blood pressure 104 mm[Hg] Krislyn Aberegg PA Work Phone: [facility] 09-29-2022 17:56-0500 Body temperature 98.2 [degF] Ananda Prabhakar MD Work Phone: [facility] 09-29-2022 17:56-0500 Body weight 94.98 kg Ananda Prabhakar MD Work Phone: [facility] 09-29-2022 17:56-0500 Diastolic blood pressure 82 mm[Hg] Ananda Prabhakar MD Work Phone: [facility] 09-29-2022 17:56-0500 Heart rate 67 /min Ananda Prabhakar MD Work Phone: [facility] 09-29-2022 17:56-0500 Respiratory rate 20 /min Ananda Prabhakar MD Work Phone: [facility] 09-29-2022 17:56-0500 SaO2% (BldA) [Mass fraction] 99 % Ananda Prabhakar MD Work Phone: [facility] 09-29-2022 17:56-0500 Systolic blood pressure 122 mm[Hg] Ananda Prabhakar MD Work Phone: [facility] 05-10-2022 15:42-0400 Diastolic blood pressure 96 mm[Hg] Dacia Leo MD Work Phone: [facility] 05-10-2022 15:42-0400 Systolic blood pressure 148 mm[Hg] Dacia Leo MD Work Phone: [facility] 05-10-2022 15:39-0400 Body weight 89.18 kg Dacia Leo MD Work Phone: [facility] 05-10-2022 15:39-0400 Heart rate 92 /min Dacia Leo MD Work Phone: [facility] 05-10-2022 15:39-0400 Respiratory rate 20 /min Dacia Leo MD Work Phone: [facility] 05-09-2022 14:43-0400 Body temperature 98.6 [degF] Blanca Dawson APRN.DATA INTEGRATION ANALYST Work Phone: [facility] 05-09-2022 14:43-0400 Body weight 91.54 kg Blanca Dawson APRN.DATA INTEGRATION ANALYST Work Phone: [facility] 05-09-2022 14:43-0400 Diastolic blood pressure 74 mm[Hg] Blanca Dawson APRN.DATA INTEGRATION ANALYST Work Phone: [facility] 05-09-2022 14:43-0400 Heart rate 85 /min Blanca Dawson APRN.DATA INTEGRATION ANALYST Work Phone: [facility] 05-09-2022 14:43-0400 Respiratory rate 21 /min Blanca Dawson APRN.DATA INTEGRATION ANALYST Work Phone: [facility] 05-09-2022 14:43-0400 SaO2% (BldA) [Mass fraction] 99 % Blanca Dawson APRN.DATA INTEGRATION ANALYST Work Phone: [facility] 05-09-2022 14:43-0400 Systolic blood pressure 126 mm[Hg] Blanca Dawson APRN.DATA INTEGRATION ANALYST Work Phone: [facility] 03-11-2022 14:26-0400 Body weight 92.08 kg Tresa Tannhof INDUSTRIAL RELATIONS COUNSELOR.DATA INTEGRATION ANALYST Work Phone: [facility] 03-11-2022 14:26-0400 Diastolic blood pressure 64 mm[Hg] Tresa Tannhof INDUSTRIAL RELATIONS COUNSELOR.DATA INTEGRATION ANALYST Work Phone: [facility] 03-11-2022 14:26-0400 Heart rate 62 /min Tresa Tannhof INDUSTRIAL RELATIONS COUNSELOR.DATA INTEGRATION ANALYST Work Phone: [facility] 03-11-2022 14:26-0400 Respiratory rate 14 /min Tresa Tannhof INDUSTRIAL RELATIONS COUNSELOR.DATA INTEGRATION ANALYST Work Phone: [facility] 03-11-2022 14:26-0400 Systolic blood pressure 106 mm[Hg] Tresa Tannhof INDUSTRIAL RELATIONS COUNSELOR.DATA INTEGRATION ANALYST Work Phone: [facility] 01-11-2022 13:23-0400 Body temperature 97.81 [degF] Becca Enmanuel INDUSTRIAL RELATIONS COUNSELOR.DATA INTEGRATION ANALYST Work Phone: [facility] 01-11-2022 13:23-0400 Body weight 96.34 kg Becca Enmanuel INDUSTRIAL RELATIONS COUNSELOR.DATA INTEGRATION ANALYST Work Phone: [facility] 01-11-2022 13:23-0400 Diastolic blood pressure 62 mm[Hg] Becca Enmanuel INDUSTRIAL RELATIONS COUNSELOR.DATA INTEGRATION ANALYST Work Phone: [facility] 01-11-2022 13:23-0400 Heart rate 65 /min Becca Enmanuel INDUSTRIAL RELATIONS COUNSELOR.DATA INTEGRATION ANALYST Work Phone: [facility] 01-11-2022 13:23-0400 Respiratory rate 21 /min Becca Enmanuel INDUSTRIAL RELATIONS COUNSELOR.DATA INTEGRATION ANALYST Work Phone: [facility] 01-11-2022 13:23-0400 SaO2% (BldA) [Mass fraction] 99 % Becca Enmanuel INDUSTRIAL RELATIONS COUNSELOR.DATA INTEGRATION ANALYST Work Phone: [facility] 01-11-2022 13:23-0400 Systolic blood pressure 102 mm[Hg] Becca Enmanuel INDUSTRIAL RELATIONS COUNSELOR.DATA INTEGRATION ANALYST Work Phone: [facility] 08-04-2018 12:36-0500 Body surface area Der[facility] [place] [facility] 12:11-0500 Body surface area Derived from formula [facility] Encounters Encounter Date Encounter Type Care Provider Facility Start: 09-16-2023 Telephone encounter Emperatriz Chacon [facility] Clinical Communication Start: 09-09-2023 End: 09-15-2023 Evaluation and management of inpatient [facility] Start: 09-09-2023 End: 09-15-2023 Evaluation and management of inpatient Lenny Macdonald MD Work Phone: [facility] Respiratory Unit 7W Procedures Date Procedure Procedure [...] or older (1 - 1-dose 60+ series) [facility] Start: 07-20-2033 DTaP/Tdap/Td Vaccines (2 - Td or Tdap) DTaP/Tdap/Td Vaccines (2 - Td or Tdap) [facility] Start: 07-20-2033 Urine microalbumin profile DTaP,Tdap,Td Vaccine (2 - Td or Tdap) [facility] Start: 06-24-2024 DIABETES SCREEN DIABETES SCREEN [facility] Start: 06-24-2024 Diabetes Screening Diabetes Screening [facility] Start: 02-21-2024 HPV TESTING HPV TESTING [facility] Start: 02-21-2024 PAP TESTING PAP TESTING [facility] Start: 01-25-2024 Mammography [facility] Start: 2023 Zoster Vaccines (1 of 2) Zoster Vaccines (1 of 2) [facility] Start: 05-27-2023 Influenza vaccination [facility] Start: 12-02-2022 End: 02-01-2023 Bacteria identified in Wound by Culture WOUND CULTURE AND GRAM STAIN Microbiology Routine Skin infection Expected: 12/02/2022, Expires: 02/01/2023 [facility] Work Phone: Immunizations Immunization Date Immunization Notes Care Provider Fa [facility] 07-20-2023 tetanus toxoid, redu viridiana diphtheria toxoid, and acellular pertussis vaccine, adsorbed Lenny Macdonald MD Work Phone: [facility] 08-06-2018 influenza, injectabl e, quadrivalent, preservative free Becca Enmanuel INDUSTRIAL RELATIONS COUNSELOR.DATA INTEGRATION ANALYST Work Phone: [facility] 08-06-2018 influenza virus vaccine, unspecified formulation Screen Wstr [facility] 08-05-2018 pneumococcal polysaccharide vaccine, 23 valent Becca Enmanuel INDUSTRIAL RELATIONS COUNSELOR.DATA INTEGRATION ANALYST Work Phone: [facility] NEGATED: Highlighted row has not occurred!09-11-2023 Influenza, injectable, [place]in [place] Canine Kidney, preservative free, quadrivalent Lenny Macdonald MD Work Phone: [facility] Payers Date Payer Category Payer Medicaid [id number] 2015 Medicaid [id number] 2015 Medicaid [facility] MEDIC AID [facility] MEDICAID [id number] 2015-Present [phone] [address] [place] [address] Medicaid [id number] 2015 Medicaid [id number] Social History Date Type Detail Facility Start: 04-14-2017 End: 05-09-2022 Tobacco smoking status NHIS Smokes tobacco daily [facility] Work Phone: History of tobacco use Cigarette Smoker [facility] Work Phone: Start: 01-11-2022 End: 12-02-2022 Alcohol intake Current drinker of alcohol (finding) [facility] Start: 02-28-2020 History SDOH Alcohol Frequency 3 [facility] Start: 12-10-2011 History SDOH Alcohol Comment occasionally mixed drink [facility] Start: 04-14-2017 End: 05-09-2022 Tobacco Comment maybe more then 1 pack daily [facility] Start: 1975 Sex Assigned At Not on file [facility] Start: 01-01-2022 End: 05-26-2022 Exposure to SARS-CoV-2 (event) Not sure [facility] Work Phone: Start: 04-14-2017 End: 09-10-2023 Cigarettes smoked current (pack per day) - Reported 1 [facility] Work Phone: Start: 04-14-2017 End: 05-09-2022 Tobacco use and exposure Smokeless tobacco non-user [facility] Start: 04-30-2022 End: 05-10-2022 Exposure to SARS-CoV-2 (event) Yes [facility] Start: 02-28-2020 End: 09-10-2023 Alcohol Use Disorder Identification Test - Consumption [AUDIT-C] [facility] Work Phone: How often to you hav e a drink containing alcohol? 2-4 times a month [facility] Work Phone: Average Number of Drinks Not on file [facility] unknown [facility] Within the last year , have you been afraid of your partner or ex-partner? No [facility] How often to you hav e a drink containing alcohol? Never [facility] Clinical Notes 01-11-2022 to 09-20-2023 Telephone Encounter - Emperatriz Chacon LPN - 09/20/2023 9:58 AM ESTTelephone Encounter - Emperatriz Chacon LPN - 09/20/2023 9:[address] - 09/15/2023 12:12 PM EST Note Date & Type Note Facility 09-20-2023 Telephone encounter Note Unable to contact patient X2 [facility] 09-20-2023 Miscellaneous Notes Unable to contact patient X2 S: Patient admitted to: [facility] 09/09/23 B: Discharged on : 09/15/23 A: Hospital follow up call initiated to discuss any medication changes, follow up appointments and discharge instructions: Small bowel obstruction R: No contact x 1 at : [phone] documented in this encounter [facility] 09-16-2023 Telephone encounter Note S: Patient admitted to: [facility] 09/09/23 B: Discharged on : 09/15/23 A: Hospital follow up call initiated to discuss any medication changes, follow up appointments and discharge instructions: Small bowel obstruction R: No contact x 1 at : [phone] [facility] 09-15-2023 Note Formatting of this n [...] service. SW placed call to [facility] [phone]. Transport arranged for picker operator at [address] between 4:12-6:12pm. They will call the unit 15 minutes prior to their arrival . Ref # [id number]. pattern layout worker updated patients bedside RN, who will update the patient. [facility] 09-15-2023 Note Formatting of this n [...] their uber/lyft service. SW placed call to [facility] [phone]. Transport arranged for picker operator at [address] between 4:12-6:12pm. They will call the unit 15 minutes prior to their arrival . Ref # [id number]. pattern layout worker updated patients bedside RN, who will update the patient. [facility] 09-15-2023 Miscellaneous Notes Social work follow up on discharge. SW notified by patients bedside RN patient needs assist with transport to home. SHELL spoke to patient to confirm address on file is correct. She reports she typically will use her [facility] johnny for transport and uses their uber/lyft service. SW placed call to [facility] [phone]. Transport arranged for picker operator at [address] between 4:12-6:12pm. They will call the unit 15 minutes prior to their arrival . Ref # [id number]. pattern layout worker updated patients bedside RN, who will [...] Limits Permission given to speak with patient cash applications representative/caregiver as indicated: Yes Confirmation of Payer with patient/family: Yes Payer Name: [employer] [place]: No Confirmation of Primary Care Physician: Confirmed [...] TCC will follow. documented in this encounter [facility] 09-15-2023 Note Discharge Summary Carolina Bonilla [...] SIGNIFICANT DIAGNOSTIC STUDIES: US guided abdominal paracentesis [[id number]] Collected: 09/14/231134 Order Status: Completed Updated: 09/14/231136 [...] 11:36 AM EST US guided abdominal paracentesis [[id number]] Collected: 09/10/23853 Order Status: Completed Updated: 09/10/23854 Narrative: Patient Name: CAROLINA BONILLA : 1975 Exam Date/Time: 09/10/2023 08:29 Proced (more content not included)... [facility] 09-15-2023 History of Presen t illness Narrative [...] (S/p paracentesis 09/14 with 1.7L removed) Ascites Production Operations Engineer Strength: Not Performed Nutrition Assessment: 47yo F [...] On: Kcal/kg Weight Used for Energy Requirements: [place] Weight for Energy Calculation (kg): 50 kg Total Energy Requirements (kcals/day): 27-32 kcal/kg = 8458-9337 kcal/day Weight Used for Protein Requirements: [place] Weight in Kg Used for Protein Requirements: [...] lb) (stated) % Weight Change (Calculated): 5 [place] Body Weight (lbs) (Calculated): 110 lbs [place] Body Weight (Kg) (Calculated): 50 kg % [place] Body Weight (Calculated): 190.8 % BMI (kg/m2) [...] Continue current diet Latha Lester RD Contact: *[phone] Images from the original note were not included. Hospitalist Progress Note 09/15/2023 Subjective: Admit Date: 09/09/2023 PCP: No primary care provider on file. Room#: W7-726/W7723 A Brief Hospital course: Patient is 47-year-old [...] 1,000 mL enema, 1 enema, Rectal, TID acceenyq-zufxwhogsk-mienkkkaw, , Topical, TID pantoprazole (ProtoNix) 40 mg [...] Saima Tan MD Division of Hospitalist Medicine [facility] Images from the original note were [...] 1,000 mL enema, 1 enema, Rectal, TID lrxayyxm-xliftbsqxx-fmnmrjytj, , Topical, TID pantoprazole (ProtoNix) 40 mg [...] Saima Tan MD Division of Hospitalist Medicine [facility] Images from the original note were [...] Saima Tan MD Division of Hospitalist Medicine [facility] Images from the original note were [...] Surgery PGY-1 09/12/23 4:53 PM Pager # [phone] This note may have been dictated using [employer] Medical Practice Edition 2.6 and/or Center[employer] Voice Recognition Feature. The document was proofread; however, unrecognized voice recognition development vice president errors may be present. Associated attestation - [...] FACS Division of Trauma Department of Surgery [facility] ~~~~~~~~~~~~~~~~~~~~~~~~~~~~~~~~ ~~~~~~~~~~~~~~~~~~~~~~~~~~~~~ This note may have been dictated using [employer] Medical Practice Edition 2.6 and/or [employer] Voice Recognition Feature. The document was proofread; however, unrecognized voice recognition development vice president errors may be present. [facility] ADMISSION MEDICATION RECONCILIATION Date: 09/12/23 [facility] Patient Name: Carolina Bonilla Allergies: Aspirin, [...] on last fill dates from patient's [facility]. Home medications to restart if there [...] muscle mass loss Fluid Accumulation: Mild Ascites Production Operations Engineer Strength: Not Performed Nutrition Assessment: 47yo F [...] On: Kcal/kg Weight Used for Energy Requirements: [place] Weight for Energy Calculation (kg): 50 kg Total Energy Requirements (kcals/day): 27-32 kcal/kg = 3784-5480 kcal/day Weight Used for Protein Requirements: [place] Weight in Kg Used for Protein Requirements: [...] 05/26/22 198#) % Weight Change (Calculated): 2.8 [place] Body Weight (lbs) (Calculated): 110 lbs [place] Body Weight (Kg) (Calculated): 50 kg % [place] Body Weight (Calculated): 186.9 % BMI (kg/m2) [...] soon to determine Latha Lester RD Contact: *[phone] Images from the original note were not included. Hospitalist Progress Note 09/12/2023 Subjective: Admit Date: 09/09/2023 PCP: No primary care provider on file. Room#: W7-566/W7-075 A Brief Hospital course: Patient is 47-year-old [...] Saima Tan MD Division of Hospitalist Medicine [facility] Images from the original note were not included. Hospitalist Progress Note 09/11/2023 Subjective: Admit Date: 09/09/2023 PCP: No primary care provider on file. Room#: W7-726/[facility] A Interval History: Patient is 47-year-old with [...] Judah Valentine MD Division of Hospitalist Medicine [facility] Nutrition rescreen completed. Patient is NPO/Clear [...] to follow closely. documented in this encounter [facility] 09-15-2023 Hospital course Narrative Discharge Summary [...] SIGNIFICANT DIAGNOSTIC STUDIES: US guided abdominal paracentesis [[id number]] Collected: 09/14/23 1139 Order Status: Completed Updated: 09/14/231136 Narrative: Patient [...] 11:36 AM EST US guided abdominal paracentesis [[id number]] Collected: 09/10/23853 Order Status: Completed Updated: 09/10/23854 [...] AM EST CT abdomen pelvis w contrast [[id number]] Collected: 09/09/232018 Order Status: Completed Updated: 09/09/232028 [...] 8:28 PM EST XR chest 1 view [[id number]] Collected: 09/09/231846 Order Status: Completed Updated: 09/09/231848 Narrative: Patient Name: CAROLINA BONILLA : 1975 [facility]#: [id number] Exam Date/Time: 09/09/2023 18:44 Procedure: XR CHEST [...] Your Medications These medications were sent to [facility] [place] - [address] [place] [address] desvenlafaxine 100 MG 24 hr tablet doxepin 10 MG capsule traZODone 100 MG tablet DIET: Adult diet Regular ACTIVITY: No restriction. COMPLEXITY OF FOLLOW UP: [] Moderate Complexity: follow up within 7-14 calendar days (04779) [] Severe Complexity: follow up within 7 calendar days (28379) FOLLOW UP TESTING, PENDING RESULTS OR REFERRALS AT TRANSITIONAL CARE VISIT: [] Yes [] No PENDING STUDIES: DISPOSITION: Home FACILITY/HOME CARE AGENCY NAME: Follow up with Cristiana Strauss MD [address] [facility]3] [address] [facility] [id number] Schedule an appointment as soon as possible [...] 09/15/2023, 12:04 PM documented in this encounter [facility] 09-15-2023 Note Hospitalist Progress Note 09/15/2023 [...] 1,000 mL enema, 1 enema, Rectal, TID cbwjejfx-nvdtclugjw-zztlxclln, , Topical, TID pantoprazole (ProtoNix) 40 mg [...] Pedersen MD [facility] Division of Hospitalist Medicine [facility] 09-14-2023 Note Formatting of this n ote might be different from the original. Chart reviewed. Patient had paracentesis today with 1700 ml removed. Surgery is following patient for likely ileus -->no plans for intervention and recommend ADAT. Current discharge plan is home no needs once medically stable. [facility] 09-14-2023 Note Formatting of this n ote might be different from the original. Chart reviewed. Patient had paracentesis today with 1700 ml removed. Surgery is following patient for likely ileus -->no plans for intervention and recommend ADAT. Current discharge plan is home no needs once medically stable. [facility] 09-14-2023 Note Hospitalist Progress Note 09/14/2023 [...] 1,000 mL enema, 1 enema, Rectal, TID kggygczz-qcdgujincm-uqtotsbnc, , Topical, TID pantoprazole (ProtoNix) 40 mg [...] Pedersen MD [facility] Division of Hospitalist Medicine [facility] 09-14-2023 Note Formatting of this n ote might be different from the original. Patient to ultrasound department for paracentesis. History, medications and allergies reviewed. Samuel Pastor PA-C in to speak with patient. Informed consent obtained. 1700 mL clear yellow colored fluid removed. Patient tolerated procedure well. Bandaid applied to site. Patient discharged to [address] [facility] 09-14-2023 Note Formatting of this n ote might be different from the original. Patient to ultrasound department for paracentesis. History, medications and allergies reviewed. Samuel Pastor PA-C in to speak with patient. Informed consent obtained. 1700 mL clear yellow colored fluid removed. Patient tolerated procedure well. Bandaid applied to site. Patient discharged to [address] [facility] 09-13-2023 Note Hospitalist Progress Note 09/13/2023 Subjective: Admit Date: 09/09/2023 PCP: No primary care provider on file. Room#: W726/[facility] A Brief Hospital course: Patient is 47-year-old [...] Pedersen MD [facility] Division of Hospitalist Medicine [facility] 09-13-2023 Note Care Management Prog ress Note [...] Stay (Days): 4 GMLOS: No GMLOS Documented [facility] 09-13-2023 Note Formatting of this n ote [...] Stay (Days): 4 GMLOS: No GMLOS Documented [facility] 09-13-2023 Note Formatting of this n [...] Stay (Days): 4 GMLOS: No GMLOS Documented [facility] 09-12-2023 Note Hospitalist Progress Note 09/12/2023 [...] Saima Tan MD Division of Hospitalist Medicine [facility] 09-12-2023 Note Formatting of this n ote might be different from the original. Care Managment Initial Assessment Date: 09/12/2023 Patient Name: Carolina Bonilla : 1975 Patient Information Source of Information: Patient Cognition/Language: WFL - Within Functional Limits Permission given to speak with patient cash applications representative/caregiver as indicated: Yes Confirmation of Payer with patient/family: Yes Payer Name: [facility] Medicaid [place]: No Confirmation of Primary Care Physician: Confirmed [...] home with Significant Other. Meg Herrmann RN [facility] 09-12-2023 Note Formatting of this n ote might be different from the original. Care Managment Initial Assessment Date: 09/12/2023 Patient Name: Carolina Bonilla : 1975 Patient Information Source of Information: Patient Cognition/Language: WFL - Within Functional Limits Permission given to speak with patient cash applications representative/caregiver as indicated: Yes Confirmation of Payer with patient/family: Yes Payer Name: [facility] Medicaid [place]: No Confirmation of Primary Care Physician: Confirmed [...] home with Significant Other. Meg Herrmann RN [facility] 09-11-2023 Note Formatting of this n ote might be different from the original. Attempted to complete Initial assessment over the phone. Patient currently unavailable/off unit. Will try again as time allows. TCC will follow. Effective Measure 09-11-2023 Note Formatting of this n ote might be different from the original. Attempted to complete Initial assessment over the phone. Patient currently unavailable/off unit. Will try again as time allows. TCC will follow. Effective Measure 09-11-2023 Note Hospitalist Progress Note 09/11/2023 Subjective: [...] Judah Valentine MD Division of Hospitalist Medicine [facility] 09-11-2023 Note ADDICTION MEDICINE CONSULTATION H&P Patient: Carolina Bonilla Admit Date: 09/09/2023 Primary Care Physician: No primary care provider on file. Reason for Consultation: Substance use. __ HISTORY OF PRESENT ILLNESS Chief Complaint Patient presents with Abdominal Pain Carloina Bonilla is a 47 y.o. year old [...] Physical Exam Vi (more content not included)... [facility] 09-11-2023 Hospital Discharg e [facility] Jozef Cordova MD - 09/11/2023 11:48 AM EST Images from the original note were not included. [facility] PROGRAMS Addiction Medicine Intensive Outpatient Program [place] ([facility]): [phone] [place]: [phone] [place]: [phone] Behavioral Health Intensive Outpatient Program [place] ([facility]): [phone] [place]: [phone] First Step [place] ([facility]): [phone] [place]: [phone] Partial Hospitalization Program [place] ([facility]): [phone] Traumatic Stress Center [place] ([facility]): [phone] [facility] ([facility]): [phone] Alcoholics Anonymous Meetings [email or web address] [facility] [address], [address], [place] [address] Saima Tan MD - 09/15/2023 12:01 PM EST F/U with PCP, GI, Addiction Medicine documented in this encounter [facility] 09-11-2023 Consult note Associated Order (s): [...] 09/09/2023 Patient Name: CAROL[facility]ILLA [facility] 1975 [id number] Exam Date/Time: 09/09/2023 18:44 Procedure: XR CHEST [...] 455 ms QTC Interval 501 ms P [place] 55 degrees QRS [place] -7 degrees T Wave [place] 28 degrees NV Interval 157 ms CBC auto differential Collection [...] clinical information on the day of visit. [facility] 09-11-2023 Consult note Associated Order (s): [...] abdominal paracentesis Result Date: 09/10/2023 Patient Name: CAROILNA BONILLA : 1975 Exam Date/Time: 09/10/2023 08:29 [...] 09/09/2023 Patient Name: CAROLINA BONILLA : 1975 [id number] Exam Date/Time: 09/09/2023 18:44 Procedure: XR CHEST [...] 455 ms QTC Interval 501 ms P [place] 55 degrees QRS [place] -7 degrees T Wave [place] 28 degrees NV Interval 157 ms CBC auto differential Collection [...] day of visit. documented in this encounter [facility] 09-11-2023 Nurse Note Pt was found wandering the hospital by security, confused. Pt brought back by security and she said she was going outside to smoke. She was very upset that she could not have a smoke. Pt threatened to punch someone in the face. Pt is confused. [facility] 09-11-2023 Nurse Note Pt was found wandering the hospital by security, confused. Pt brought back by security and she said she was going outside to smoke. She was very upset that she could not have a smoke. Pt threatened to punch someone in the face. Pt is confused. documented in this encounter [facility] 09-10-2023 Note Attending History an d [...] hours. I revie (more content not included)... [facility] 09-10-2023 History and physical note Images from [...] MD Division of Hospitalist Medicine Inpatient Medical Services/[facility] Work Phone: 09-10-2023 History and physical [...] MD Division of Hospitalist Medicine Inpatient Medical Services/[facility] documented in this encounter [facility] 09-10-2023 Emergency department Note Report given to 7W at this time. Transport en route. Laura Antony RN 09/10/[address] [facility] 09-10-2023 Emergency department Note Report given to 7W at this time. Transport en route. Laura Antony RN 09/10/23 050 They are here now to transport the patient to [facility] 09/10/23 0447 [facility] ETA 0430 RN will call report in a few :) [facility] 09/10/23 0432 EMERGENCY DEPARTMENT ENCOUNTER Pt [...] Culture. Procedure Abnormality Status --------- ------ Complete Urinalysis[[id number]] Abnormal Final result Please view results for [...] obstruction. Disposition admission to medical service at [facility]. [facility] unfortunately does not have the capacity to perform paracentesis if deemed necessary. Given this illness provider would like patient be transferred to [facility] for small bowel obstruction management, general surgery consultation. Discussed with Dr. Smith who accepted patient for transfer. Patient will be transferred to [facility]. PROCEDURES: Unless otherwise noted below, none [...] Provider JOSE Collins 09/09/232117 Emergency Department Encounter [facility] Patient: Carolina Bonilla : 1975 Date of Evaluation: 09/09/2023 ED Supervising Physician: Lenny Macdonald MD I independently examined and evaluated Carolina Bonilla. This will serve as my Supervisory note as the admissions clinician of record and shared attestation. I did [...] inpatient medicine team they recommend transfer to [facility] as they do not have IRP [...] for clarification.) Lenny Macdonald MD Acute Care [facility] Lenny Macdonald MD 09/12/23 1500 Pt c/o abdominal pain that began this afternoon, states that she has hx of cirrhosis. Family states she seems off. documented in this encounter [facility] 09-10-2023 Emergency department Note They are here now to transport the patient to [facility] 09/10/[address] [facility] 09-10-2023 Emergency department Note [facility] ETA 0430 RN will call report in a few :) [facility] 09/10/[address] [facility] 09-09-2023 Emergency department Triage note Pt c/o abdominal pain that began this afternoon, states that she has hx of cirrhosis. Family states she seems off. [facility] 09-09-2023 Physician Emergency department Note EMERGENCY [...] Culture. Procedure Abnormality Status --------- ------ Complete Urinalysis[[id number]] Abnormal Final result Please view results for [...] obstruction. Disposition admission to medical service at [facility]. [facility] unfortunately does not have the capacity to perform paracentesis if deemed necessary. Given this illness provider would like patient be transferred to [facility] for small bowel obstruction management, general surgery consultation. Discussed with Dr. Smith who accepted patient for transfer. Patient will be transferred to [facility]. PROCEDURES: Unless otherwise noted below, none [...] signed) Emergency Medicine Provider JOSE Collins 09/09/232117 [facility] 09-09-2023 Physician Emergency department Note Emergency Department Encounter [facility] Patient: Carolina Bonilla : 1975 Date of Evaluation: 09/09/2023 ED Supervising Physician: Lenny aMcdonald MD I independently examined and evaluated Carolina Bonilla. This will serve as my Supervisory note as the admissions clinician of record and shared attestation. I did [...] inpatient medicine team they recommend transfer to [facility] as they do not have IRP [...] [employer] Lenny Macdonald MD 09/12/23 1500 [facility] [employer] Phone: 03-24-2023 Miscellaneous Notes Attempted to contact [...] advise. Miladis Blair documented in this encounter [facility] 01-27-2023 Miscellaneous Notes Pt notified. Melisa [...] medication names. Please send RX to [facility] in [place] and advise patient when these have been ordered by provider per patient request. Patient has been identified by name and birthdate. Duration of symptoms: months Person calling: self Call patient at: at home [phone] (home) [phone] (cell) Was an appointment scheduled: No Closing statement: Results or non-symptom based questions: Thank you for calling [facility], your call will be returned within the next business day. [facility] documented in this encounter [facility] 01-25-2023 Miscellaneous Notes January 26, 2023 PID: [id number] Carolina Bonilla [facility] [address] [address] Dear Jackie Bonilla, Your recent breast imaging exam on [...] who ordered/prescribed your screening mammogram: Please call [phone] or [phone]: [phone] to schedule an appointment for your additional [...] and reports are kept on file at [facility] as part of your permanent medical record, and are available for your continuing care. Thank you for allowing us to help in meeting your health care needs. Sincerely, Dr. Estrada Interpreting Radiologist [facility] (Additional imaging) documented in this encounter [facility] 12-02-2022 Note HNO ID: [id number] Author: JOSE Vega Service: ? Author Type: Physician Guidance Secretary Type: Progress Notes Filed: 12/02/2022 1:01 PM Note Text: This note was created using [email or web address]. Subjective Carolina Bonilla is a 47 year [...] PAST SURGICAL HISTORY OF 2018 liver bx [facility] ALLERGIES Aspirin, Bupropion, Codeine, Prednisone, and Wellbutrin [...] and questions were (more content not included)... [facility] 12-02-2022 History of Presen t illness Narrative Images from the original note were not included. This note was created using [employer]. Subjective Carolina Bonilla is a 47 year [...] PAST SURGICAL HISTORY OF 2018 liver bx [facility] ALLERGIES Aspirin, Bupropion, Codeine, Prednisone, and Wellbutrin [...] evaluation. JOSE Vega documented in this encounter [facility] 10-02-2022 Miscellaneous Notes Left message of results on secure voicemail. Kayleen Rapp MA Please call patient and inform that her wound culture is negative. She can quit taking the ATB. She needs to follow up as directed. documented in this encounter [facility] 09-29-2022 Influenza virus A and B RNA and SARS-CoV-2 (COVID-19) N gene panel PHYLLIS+probe (Resp) COVID 19 RESULT: SARS-CoV-2 (Agent of COVID-19) Not Detected by RT-PCR or equivalent method. lyndon [id number] (EMILY)_EUA This test was developed and its performance characteristics determined by [facility]'s [facility] [place]. This test has been authorized by FDA under an Emergency Use Authorization (EUA). This test has been validated in accordance with the FDA's Guidance Document Policy for Diagnostics Testing in Laboratories Certified to Perform High Complexity Testing under CLIA prior to Emergency use Authorization for Coronavirus Disease 2019 during the Public Health Emergency issued on November 24, 2019. Test performed by [facility], [facility], [address] [place] [address]. INFLUENZA A PCR: Negative for Influenza A by RT-PCR INFLUENZA B PCR: Negative for Influenza B by RT-PCR [facility] Bacterial skin infection- Primary Unspecified local infection of skin and subcutaneous tissue Acne vulgaris Other acne Chronic midline low back pain with bilateral sciatica [facility] Encounter for screening mammogram for breast cancer [facility] Diagnosis Wound check, abscess- Primary Encounter for other specified aftercare [facility] Diagnosis Dermatitis- Primary Contact dermatitis and other eczema, due to unspecified cause [facility] Diagnosis Chronic midline low back pain with bilateral sciatica [facility] Diagnosis Cellulitis of chin- Primary Cellulitis and abscess of face Picking own skin Other disorder of impulse control URI, acute Acute upper respiratory infections of unspecified site [facility] Diagnosis Skin infection- Primary Unspecified local infection of skin and subcutaneous tissue [facility] Diagnosis Cellulitis of chin Cellulitis and abscess of face documented in this encounter [facility] note* Diagnosis Low back pain, unspecified back pain laterality, unspecified chronicity, unspecified whether sciatica present documented in this encounter [facility] note* Diagnosis Encounter for screening mammogram for breast cancer documented in this encounter [facility] note* Diagnosis Small bowel obstruction (HCC)- Primary Unspecified intestinal obstruction Small bowel obstruction (HCC) Unspecified intestinal obstruction Polysubstance use disorder documented in this encounter [facility] for referral (narrative)* Diagnostic Procedure Only (Routine) - Pending Review Specialty Diagnoses / Procedures Referred By Marivel cao Referred To Contact [facility] Diagnoses Encounter for screening mammogram for breast cancer Procedures JEANETH SCREENING SCREENING MAMMOGRAPHY BI 2-[place] [address] [place] [address] [facility] [address] [place] [address] Referral ID Status Reason Start Date Expiration Date Visits Requested Visits Authorized [id number] Pending Review Auto-Generat ed Referral 03/24/2022 04/23/2023 1 1 T [facility] for referral (narrative)* Diagnostic Procedure Only (Routine) - Closed Specialty Diagnoses / Procedures Referred By Marivel cao Referred To Contact [facility] Diagnoses Encounter for screening mammogram for breast cancer Procedures JEANETH SCREENING SCREENING MAMMOGRAPHY BI 2-VIEW BREAST INC Dacia Rice MD [address] [place] [address] [facility] [address] [place] [address] Referral ID Status Reason Start Date Expiration Date V isits Requested Visits Authorized [id number] Closed Auto-Generate d Referral 03/24/2022 04/23/2023 1 1 T [facility] for visit Narrative* Diagnostic Procedure Only (Routine) - Closed Specialty Diagnoses / Procedures Referred By Marivel cao Referred To Contact [facility] Diagnoses Encounter for screening mammogram for breast cancer Procedures JEANETH SCREENING SCREENING MAMMOGRAPHY BI 2-VIEW BREAST INC Dacia Rice MD [address] [place] [address] [facility] [address] [place] [address] Referral ID Status Reason Start Date Expiration Date V isits Requested Visits Authorized [id number] Closed Auto-Generate d Referral 03/24/2022 04/23/2023 1 1 [facility] Summary Purpose Family History No Family History Records FoundNo Family History Records FoundNo Family History Records FoundNo Family History Records FoundNo Family History Records Found Advance Directives No Advanced Directives Records FoundDocuments on File Type Date Recorded Patient It Instructor Expl anation Advance Directive(s) 08/05/2018 8:00 PM Advance Directive(s) 08/04/2018 9:24 AM Documents on File Type Date Recorded Patient It Instructor Expl anation Advance Directive(s) 08/05/2018 8:00 PM [...] Procedures CONSULT TO DERMATOLOGY Tresa Wells APRN.CNP [address] [place] [address] Referral ID Status Reason Start Date Expiration Date Visits Requested Visits Authorized [id number] Ref Not Required PCP Requested Referral 03/11/2022 03/11/2023 1 1 Specialty Diagnoses / Procedures Referred By Contac t Referred To Contact Saima Tan MD [address] [place] [address] Referral ID Status Reason Start Date Expiration Date V isits Requested Visits Authorized [id number] Pending Review 1 1 Additional Source Comments INFORMATION SOURCE (unrecogn ized section and content) DATE CREATED AUTHOR AUTHOR'S ORGANIZ ATION 09/03/2018 [facility] DATE CREATED AUTHOR AUTHOR'S ORGANIZ ATION 11/10/2021 [facility] DATE CREATED AUTHOR AUTHOR'S ORGANIZ ATION 09/24/2023 [facility] DATE CREATED AUTHOR AUTHOR'S ORGANIZ ATION 10/02/2023 [facility] Source Comments (unrecognize d section and content) In the event this informatio n is protected by the Federal Confidentiality of Alcohol and Drug Abuse Patient Records regulations: The Federal rules restrict any use of the information to criminally investigate or prosecute any alcohol or drug abuse patient.[facility] the event this information is protected by the Federal Confidentiality of Alcohol and Drug Abuse Patient Records regulations: The Federal rules restrict any use of the information to criminally investigate or prosecute any alcohol or drug abuse patient.[facility] Hospital[facility] the event this information is protected by the Federal Confidentiality of Alcohol and Drug Abuse Patient Records regulations: The Federal rules restrict any use of the information to criminally investigate or prosecute any alcohol or drug abuse patient.[facility] Hospital[facility] the event this information is protected by the Federal Confidentiality of Alcohol and Drug Abuse Patient Records regulations: The Federal rules restrict any use of the information to criminally investigate or prosecute any alcohol or drug abuse patient.[facility] HospitalIn the event this information is protected by the Federal Confidentiality of Alcohol and Drug Abuse Patient Records regulations: The Federal rules restrict any use of the information to criminally investigate or prosecute any alcohol or drug abuse patient.[facility] Hospital[facility] the event this information is protected by the Federal Confidentiality of Alcohol and Drug Abuse Patient Records regulations: The Federal rules restrict any use of the information to criminally investigate or prosecute any alcohol or drug abuse patient.[facility] HospitalIn the event this information is protected by the Federal Confidentiality of Alcohol and Drug Abuse Patient Records regulations: The Federal rules restrict any use of the information to criminally investigate or prosecute any alcohol or drug abuse patient.[facility] HospitalIn the event this information is protected by the Federal Confidentiality of Alcohol and Drug Abuse Patient Records regulations: The Federal rules restrict any use of the information to criminally investigate or prosecute any alcohol or drug abuse patient.[facility] HospitalIn the event this information is protected by the Federal Confidentiality of Alcohol and Drug Abuse Patient Records regulations: The Federal rules restrict any use of the information to criminally investigate or prosecute any alcohol or drug abuse patient.[facility] HospitalIn the event this information is protected by the Federal Confidentiality of Alcohol and Drug Abuse Patient Records regulations: The Federal rules restrict any use of the information to criminally investigate or prosecute any alcohol or drug abuse patient.[facility] HospitalIn the event this information is protected by the Federal Confidentiality of Alcohol and Drug Abuse Patient Records regulations: The Federal rules restrict any use of the information to criminally investigate or prosecute any alcohol or drug abuse patient.[facility] HospitalIn the event this information is protected by the Federal Confidentiality of Alcohol and Drug Abuse Patient Records regulations: The Federal rules restrict any use of the information to criminally investigate or prosecute any alcohol or drug abuse patient.[facility] HospitalIn the event this information is protected by the Federal Confidentiality of Alcohol and Drug Abuse Patient Records regulations: The Federal rules restrict any use of the information to criminally investigate or prosecute any alcohol or drug abuse patient.[facility] HospitalIn the event this information is protected by the Federal Confidentiality of Alcohol and Drug Abuse Patient Records regulations: The Federal rules restrict any use of the information to criminally investigate or prosecute any alcohol or drug abuse patient.[facility] HospitalIn the event this information is protected by the Federal Confidentiality of Alcohol and Drug Abuse Patient Records regulations: The Federal rules restrict any use of the information to criminally investigate or prosecute any alcohol or drug abuse patient.[facility] HospitalIn the event this information is protected by the Federal Confidentiality of Alcohol and Drug Abuse Patient Records regulations: The Federal rules restrict any use of the information to criminally investigate or prosecute any alcohol or drug abuse patient.[facility] HospitalIn the event this information is protected by the Federal Confidentiality of Alcohol and Drug Abuse Patient Records regulations: The Federal rules restrict any use of the information to criminally investigate or prosecute any alcohol or drug abuse patient.[facility] HospitalIn the event this information is protected by the Federal Confidentiality of Alcohol and Drug Abuse Patient Records regulations: The Federal rules restrict any use of the information to criminally investigate or prosecute any alcohol or drug abuse patient.[facility] HospitalIn the event this information is protected by the Federal Confidentiality of Alcohol and Drug Abuse Patient Records regulations: The Federal rules restrict any use of the information to criminally investigate or prosecute any alcohol or drug abuse patient.[facility] HospitalIn the event this information is protected by the Federal Confidentiality of Alcohol and Drug Abuse Patient Records regulations: The Federal rules restrict any use of the information to criminally investigate or prosecute any alcohol or drug abuse patient.[facility] HospitalIn the event this information is protected by the Federal Confidentiality of Alcohol and Drug Abuse Patient Records regulations: The Federal rules restrict any use of the information to criminally investigate or prosecute any alcohol or drug abuse patient.[facility] Reason for Visit (unrecogniz ed section [...] (HCC) Procedures . Cindi Smith MD [address] [address] [facility] 7w Respiratory [address] [facility] [place] [address] Referral ID Status Reason Start Date Expiration Date Visits Re quested Visits Authorized [id number] 1 1 Care Teams (unrecognized sec tion and content) Poultry Dressing Worker Relationship Specialty Start Date End Date Dacia Leo MD [address] [place] [address] PCP - General Family Practice 08/24/10 Poultry Dressing Worker Relationship Specialty Start Date End Date Dacia Leo MD [address] [place] [address] PCP - General Family Practice 08/24/10 Poultry Dressing Worker Relationship Specialty Start Date End Date Dacia Leo MD [address] [place] [address] PCP - General Family Practice 08/24/10 Poultry Dressing Worker Relationship Specialty Start Date End Date Dacia Leo MD [address] [place] [address] PCP - General Family Practice 08/24/10 Poultry Dressing Worker Relationship Specialty Start Date End Date Dacia Leo MD [address] [place] [address] PCP - General Family Practice 08/24/10 Poultry Dressing Worker Relationship Specialty Start Date End Date Dacia Leo MD [address] [place] [address] PCP - General Family Practice 08/24/10 Poultry Dressing Worker Relationship Specialty Start Date End Date Dacia Leo MD [address] [place] [address] PCP - General Family Practice 08/24/10 Poultry Dressing Worker Relationship Specialty Start Date End Date Dacia Leo MD [address] [place] [address] PCP - General Family Practice 08/24/10 Poultry Dressing Worker Relationship Specialty Start Date End Date Dacia Leo MD [address] [place] [address] PCP - General Family Practice 08/24/10 Poultry Dressing Worker Relationship Specialty Start Date End Date Dacia Leo MD [address] [place] [address] PCP - General Family Medicine 08/24/10 Poultry Dressing Worker Relationship Specialty Start Date End Date Dacia Leo MD [address] [place] [address] PCP - General Family Medicine 08/24/10 Poultry Dressing Worker Relationship Specialty Start Date End Date Dacia Leo MD [address] [place] [address] PCP - General Family Medicine 08/24/10 Poultry Dressing Worker Relationship Specialty Start Date End Date Dacia Leo MD [address] [place] [address] PCP - General Family Medicine 08/24/10 Poultry Dressing Worker Relationship Specialty Start Date End Date Dacia Leo MD [address] [place] [address] PCP - General Family Medicine 08/24/10 Poultry Dressing Worker Relationship Specialty Start Date End Date Dacia Leo MD [address] [place] [address] PCP - General Family Medicine 08/24/10 Poultry Dressing Worker Relationship Specialty Start Date End Date Dacia Leo MD [address] [facility] [place] [id number] PCP - General Family Medicine 08/24/10 Poultry Dressing Worker Relationship Specialty Start Date End Date Dacia Leo MD [address] [place] [address] PCP - General Family Medicine 08/24/10 Scheduled [...] sedation for opioid reversal - MUST notify agronomy research manager provider immediately after first dose, may give [...] - Provider: Haritha Martinez RN) sodium chloride ([place]) 0.65 % nasal spray 2 spray 2 [...] BE BASED ON THE PRIMARY CLINICAL RECORDS. [facility]. provides no warranty or guarantee of the accuracy or completeness of information in this document.
[2023-10-06 22:41] VITALS: BP 105/76; PULSE 66; RESP 16; TEMP 36.8; O2SAT 98
[2023-10-06 23:07] VITALS: BP 131/77; PULSE 62; RESP 18; TEMP 36.9; O2SAT 100
[2023-10-06 23:10] VITALS: BMI 36.8
--- NOTE | 2023-10-06 23:21 | NURSING ---
pt moved out on Sep 26. Friend refused to return pt's medications and belongings.
--- OUTSIDE RECORDS SUMMARY | 2023-10-06 23:31 | XMS RPT_ITS | CCD ---
Author Name Unknown Address [address] [place] [address] Organization [facility] Care Team Providers Care Communications Strategist Name Role Phone GELA AGUDELO Unavailable Unavailable DACIA LEO Unavailable REANY BENTLEY Unavailable Unav ailable RENAY BENTLEY Unavailable [...] sources) Aspirin; Translations: [ASPIRIN] Drug Allergy 5 [facility] Rep[facility] (20 sources) buPROPion; Translations: [BUPROPION HCL] Drug Allergy 3 Other: See Comments [facility] (20 sources) Codeine; Translations: [CODEINE] Drug Allergy 5 Rash, Hives [facility] (20 sources) buPROPion; Translations: [BUPROPION] Drug Allergy 3 Other: See Comments [facility] (20 sources) predniSONE; Translations: [PREDNISONE] Drug Allergy 9 Rash [facility] Work Phone: (3 sources) Prednisone Propensity to adverse reactions 9 Rash [facility] Medications Current Medications Medication Drug Class(es) Dates [...] tablet 650 mg 20 ml albumin human, mcc 250 mg/ml injection (2 sources) Human Serum Albumin Start: 09-10-2023 End: 09-10-2023 albumin human 25 % IV solution 50 g [id number] 200 actuat albuterol 0.09 mg/actuat metered dose [...] 38.38 kg/m2 Lenny Macdonald MD Work Phone: [facility] [employer] 09-15-2023 12:01-0500 Body weight 95.21 kg Lenny Macdonald MD Work Phone: [facility] 09-15-2023 11:39-0500 Body height 157.5 cm Lenny Macdonald MD Work Phone: [facility] 09-15-2023 06:02-0500 Body temperature 97.3 [degF] Lenny Macdonald MD Work Phone: [facility] 09-15-2023 06:02-0500 Diastolic blood pressure 53 mm[Hg] Lenny Macdonald MD Work Phone: [facility] 09-15-2023 06:02-0500 Heart rate 68 /min Lenny Macdonald MD Work Phone: [facility] 09-15-2023 06:02-0500 Respiratory rate 16 /min Lenny Macdonald MD Work Phone: [facility] 09-15-2023 06:02-0500 SaO2% (BldA) [Mass fraction] 98 % Lenny Macdonald MD Work Phone: [facility] 09-15-2023 06:02-0500 Systolic blood pressure 91 mm[Hg] Lenny Macdonald MD Work Phone: [facility] 12-02-2022 12:49-0500 Body temperature 98.29 [degF] Joselito GARCIA Work Phone: [facility] 12-02-2022 12:49-0500 Body weight 94.62 kg Krislyn Aberegg PA Work Phone: [facility] 12-02-2022 12:49-0500 Diastolic blood pressure 78 mm[Hg] Krislyn Aberegg PA Work Phone: [facility] 12-02-2022 12:49-0500 Heart rate 64 /min Krislyn Aberegg PA Work Phone: [facility] 12-02-2022 12:49-0500 Respiratory rate 16 /min Krislyn Aberegg PA Work Phone: [facility] 12-02-2022 12:49-0500 SaO2% (BldA) [Mass fraction] 98 % Krislyn Aberegg PA Work Phone: [facility] 12-02-2022 12:49-0500 Systolic blood pressure 104 mm[Hg] Krislyn Aberegg PA Work Phone: [facility] 09-29-2022 17:56-0500 Body temperature 98.2 [degF] Ananda Prabhakar MD Work Phone: [facility] 09-29-2022 17:56-0500 Body weight 94.98 kg Ananda Prabhakar MD Work Phone: [facility] 09-29-2022 17:56-0500 Diastolic blood pressure 82 mm[Hg] Ananda Prabhakar MD Work Phone: [facility] 09-29-2022 17:56-0500 Heart rate 67 /min Ananda Prabhakar MD Work Phone: [facility] 09-29-2022 17:56-0500 Respiratory rate 20 /min Ananda Prabhakar MD Work Phone: [facility] 09-29-2022 17:56-0500 SaO2% (BldA) [Mass fraction] 99 % Ananda Prabhakar MD Work Phone: [facility] 09-29-2022 17:56-0500 Systolic blood pressure 122 mm[Hg] Ananda Prabhakar MD Work Phone: [facility] 05-10-2022 15:42-0400 Diastolic blood pressure 96 mm[Hg] Dacia Leo MD Work Phone: [facility] 05-10-2022 15:42-0400 Systolic blood pressure 148 mm[Hg] Dacia Leo MD Work Phone: [facility] 05-10-2022 15:39-0400 Body weight 89.18 kg Dacia Leo MD Work Phone: [facility] 05-10-2022 15:39-0400 Heart rate 92 /min Dacia Leo MD Work Phone: [facility] 05-10-2022 15:39-0400 Respiratory rate 20 /min Dacia Leo MD Work Phone: [facility] 05-09-2022 14:43-0400 Body temperature 98.6 [degF] Blanca Dawson APRN.SCREEN PRINT OPERATOR Work Phone: [facility] 05-09-2022 14:43-0400 Body weight 91.54 kg Blanca Dawson APRN.SCREEN PRINT OPERATOR Work Phone: [facility] 05-09-2022 14:43-0400 Diastolic blood pressure 74 mm[Hg] Blanca Dawson APRN.SCREEN PRINT OPERATOR Work Phone: [facility] 05-09-2022 14:43-0400 Heart rate 85 /min Blanca Dawson APRN.SCREEN PRINT OPERATOR Work Phone: [facility] 05-09-2022 14:43-0400 Respiratory rate 21 /min Blanca Dawson APRN.SCREEN PRINT OPERATOR Work Phone: [facility] 05-09-2022 14:43-0400 SaO2% (BldA) [Mass fraction] 99 % Blanca Dawson APRN.SCREEN PRINT OPERATOR Work Phone: [facility] 05-09-2022 14:43-0400 Systolic blood pressure 126 mm[Hg] Blanca Dawson APRN.SCREEN PRINT OPERATOR Work Phone: [facility] 03-11-2022 14:26-0400 Body weight 92.08 kg Tresa Tannhof FUNERAL HOME DIRECTOR.SCREEN PRINT OPERATOR Work Phone: [facility] 03-11-2022 14:26-0400 Diastolic blood pressure 64 mm[Hg] Tresa Tannhof FUNERAL HOME DIRECTOR.SCREEN PRINT OPERATOR Work Phone: [facility] 03-11-2022 14:26-0400 Heart rate 62 /min Tresa Tannhof FUNERAL HOME DIRECTOR.SCREEN PRINT OPERATOR Work Phone: [facility] 03-11-2022 14:26-0400 Respiratory rate 14 /min Tresa Tannhof FUNERAL HOME DIRECTOR.SCREEN PRINT OPERATOR Work Phone: [facility] 03-11-2022 14:26-0400 Systolic blood pressure 106 mm[Hg] Tresa Tannhof FUNERAL HOME DIRECTOR.SCREEN PRINT OPERATOR Work Phone: [facility] 01-11-2022 13:23-0400 Body temperature 97.81 [degF] Becca Enmanuel FUNERAL HOME DIRECTOR.SCREEN PRINT OPERATOR Work Phone: [facility] 01-11-2022 13:23-0400 Body weight 96.34 kg Becca Enmanuel FUNERAL HOME DIRECTOR.SCREEN PRINT OPERATOR Work Phone: [facility] 01-11-2022 13:23-0400 Diastolic blood pressure 62 mm[Hg] Becca Enmanuel FUNERAL HOME DIRECTOR.SCREEN PRINT OPERATOR Work Phone: [facility] 01-11-2022 13:23-0400 Heart rate 65 /min Becca Enmanuel FUNERAL HOME DIRECTOR.SCREEN PRINT OPERATOR Work Phone: [facility] 01-11-2022 13:23-0400 Respiratory rate 21 /min Becca Enmanuel FUNERAL HOME DIRECTOR.SCREEN PRINT OPERATOR Work Phone: [facility] 01-11-2022 13:23-0400 SaO2% (BldA) [Mass fraction] 99 % Becca Enmanuel FUNERAL HOME DIRECTOR.SCREEN PRINT OPERATOR Work Phone: [facility] 01-11-2022 13:23-0400 Systolic blood pressure 102 mm[Hg] Becca Enmanuel FUNERAL HOME DIRECTOR.SCREEN PRINT OPERATOR Work Phone: [facility] 08-04-2018 12:36-0500 Body surface [facility] 12:11-0500 Body surface area Derived from formula [facility] Encounters Encounter Date Encounter Type Care Provider Facility Start: 09-16-2023 Telephone encounter Empreatriz Chacon [facility] Clinical Communication Start: 09-09-2023 End: 09-15-2023 Evaluation and management of inpatient [facility] Start: 09-09-2023 End: 09-15-2023 Evaluation and management of inpatient Lenny Macdonald MD Work Phone: [facility] Respiratory Unit 7W Procedures Date Procedure [...] or older (1 - 1-dose 60+ series) [facility] Start: 07-20-2033 DTaP/Tdap/Td Vaccines (2 - Td or Tdap) DTaP/Tdap/Td Vaccines (2 - Td or Tdap) [facility] Start: 07-20-2033 Urine microalbumin profile DTaP,Tdap,Td Vaccine (2 - Td or Tdap) [facility] Start: 06-24-2024 DIABETES SCREEN DIABETES SCREEN [facility] Start: 06-24-2024 Diabetes Screening Diabetes Screening [facility] Start: 02-21-2024 HPV TESTING HPV TESTING [facility] Start: 02-21-2024 PAP TESTING PAP TESTING [facility] Start: 01-25-2024 Mammography [facility] Start: 2023 Zoster Vaccines (1 of 2) Zoster Vaccines (1 of 2) [facility] Start: 05-27-2023 Influenza vaccination [facility] Start: 12-02-2022 End: 02-01-2023 Bacteria identified in Wound by Culture WOUND CULTURE AND GRAM STAIN Microbiology Routine Skin infection Expected: 12/02/2022, Expires: 02/01/2023 [facility] Work Phone: Immunizations Immunization Date Immunization Notes Care Provider Fa [facility] 07-20-2023 tetanus toxoid, redu viridiana diphtheria toxoid, and acellular pertussis vaccine, adsorbed Lenny Macdonald MD Work Phone: [facility] 08-06-2018 influenza, injectabl e, quadrivalent, preservative free Becca Enmanuel FUNERAL HOME DIRECTOR.SCREEN PRINT OPERATOR Work Phone: [facility] 08-06-2018 influenza virus vaccine, unspecified formulation Screen Wstr [facility] 08-05-2018 pneumococcal polysaccharide vaccine, 23 valent Becca Enmanuel FUNERAL HOME DIRECTOR.SCREEN PRINT OPERATOR Work Phone: [facility] NEGATED: Highlighted row has not occurred!09-11-2023 Influenza, injectable, Madin [facility]ley Canine Kidney, preservative free, quadrivalent Lenny Macdonald MD Work Phone: [facility] Payers Date Payer Category Payer Medicaid [id number] 2015 Medicaid [id number] 2015 Medicaid [facility] MEDIC [facility] MEDICA[facility] [id number] 2015-Present [phone] [address] [place] [address] Medicaid [id number] 2015 Medicaid [id number] Social History Date Type Detail Facility Start: 04-14-2017 End: 05-09-2022 Tobacco smoking status NHIS Smokes tobacco daily [facility] Work Phone: History of tobacco use Cigarette Smoker [facility] Work Phone: Start: 01-11-2022 End: 12-02-2022 Alcohol intake Current drinker of alcohol (finding) [facility] Start: 02-28-2020 History SDOH Alcohol Frequency 3 [facility] Start: 12-10-2011 History SDOH Alcohol Comment occasionally mixed drink [facility] Start: 04-14-2017 End: 05-09-2022 Tobacco Comment maybe more then 1 pack daily [facility] Start: 1975 Sex Assigned At Not on file [facility] Start: 01-01-2022 End: 05-26-2022 Exposure to SARS-CoV-2 (event) Not sure [facility] Work Phone: Start: 04-14-2017 End: 09-10-2023 Cigarettes smoked current (pack per day) - Reported 1 [facility] Work Phone: Start: 04-14-2017 End: 05-09-2022 Tobacco use and exposure Smokeless tobacco non-user [facility] Start: 04-30-2022 End: 05-10-2022 Exposure to SARS-CoV-2 (event) Yes [facility] Start: 02-28-2020 End: 09-10-2023 Alcohol Use Disorder Identification Test - Consumption [AUDIT-C] [facility] Work Phone: How often to you hav e a drink containing alcohol? 2-4 times a month [facility] Work Phone: Average Number of Drinks Not on file [facility] consumption unknown [facility] Within the last year , have you been afraid of your partner or ex-partner? No [facility] How often to you hav e a drink containing alcohol? Never [facility] Clinical Notes 01-11-2022 to 09-20-2023 Telephone Encounter - Emperatriz Chacon LPN - 09/20/2023 9:58 AM ESTTelephone Encounter - Emperatriz Chacon LPN - 09/20/2023 9:[address] - 09/15/2023 12:12 PM EST Note Date & Type Note Facility 09-20-2023 Telephone encounter Note Unable to contact patient X2 [facility] 09-20-2023 Miscellaneous Notes Unable to contact patient X2 S: Patient admitted to: [facility] 09/09/23 B: Discharged on : 09/15/23 A: Hospital follow up call initiated to discuss any medication changes, follow up appointments and discharge instructions: Small bowel obstruction R: No contact x 1 at : [phone] documented in this encounter [facility] 09-16-2023 Telephone encounter Note S: Patient admitted to: [facility] 09/09/23 B: Discharged on : 09/15/23 A: Hospital follow up call initiated to discuss any medication changes, follow up appointments and discharge instructions: Small bowel obstruction R: No contact x 1 at : [phone] [facility] 09-15-2023 Note Formatting of this n ote [...] service. SW placed call to [facility] transport [phone]. Transport arranged for chicken picker at [address] between 4:12-6:12pm. They will call the unit 15 minutes prior to their arrival . Ref # [id number]. dry yard worker updated patients bedside RN, who will update the patient. [facility] 09-15-2023 Note Formatting of this n [...] their uber/lyft service. SW placed call to [facility] transport [phone]. Transport arranged for chicken picker at [address] between 4:12-6:12pm. They will call the unit 15 minutes prior to their arrival . Ref # [id number]. dry yard worker updated patients bedside RN, who will update the patient. [facility] 09-15-2023 Miscellaneous Notes Social work follow up on discharge. SW notified by patients bedside RN patient needs assist with transport to home. SHELL spoke to patient to confirm address on file is correct. She reports she typically will use her [facility] johnny for transport and uses their uber/lyft service. SW placed call to [facility] transport [phone]. Transport arranged for chicken picker at [address] between 4:12-6:12pm. They will call the unit 15 minutes prior to their arrival . Ref # [id number]. dry yard worker updated patients bedside RN, who will [...] Limits Permission given to speak with patient community health program representative/caregiver as indicated: Yes Confirmation of Payer with patient/family: Yes Payer Name: [employer] [place]: No Confirmation of Primary Care Physician: Confirmed [...] TCC will follow. documented in this encounter [facility] 09-15-2023 Note Discharge Summary Carolina Bonilla : [...] SIGNIFICANT DIAGNOSTIC STUDIES: US guided abdominal paracentesis [[id number]] Collected: 09/14/231134 Order Status: Completed Updated: 09/14/231136 [...] 11:36 AM EST US guided abdominal paracentesis [[id number]] Collected: 09/10/23853 Order Status: Completed Updated: 09/10/23854 Narrative: Patient Name: CAROLINA BONILLA : 1975 Exam Date/Time: 09/10/2023 08:29 Proced (more content not included)... [facility] 09-15-2023 History of Presen t illness [...] (S/p paracentesis 09/14 with 1.7L removed) Ascites Periodontist Strength: Not Performed Nutrition Assessment: 47yo F [...] On: Kcal/kg Weight Used for Energy Requirements: [place] Weight for Energy Calculation (kg): 50 kg Total Energy Requirements (kcals/day): 27-32 kcal/kg = 8164-0861 kcal/day Weight Used for Protein Requirements: [place] Weight in Kg Used for Protein [...] lb) (stated) % Weight Change (Calculated): 5 [place] Body Weight (lbs) (Calculated): 110 lbs [place] Body Weight (Kg) (Calculated): 50 kg % [place] Body Weight (Calculated): 190.8 % BMI [...] Continue current diet Latha Lester RD Contact: *[phone] Images from the original note were not included. Hospitalist Progress Note 09/15/2023 Subjective: Admit Date: 09/09/2023 PCP: No primary care provider on file. Room#: W7-726/W7727 A Brief Hospital course: Patient is 47-year-old [...] 1,000 mL enema, 1 enema, Rectal, TID gietaayi-yqvxigalrd-zlidilzip, , Topical, TID pantoprazole (ProtoNix) 40 mg [...] Tan MD Division of Hospitalist Medicine [facility] Images from the original note were [...] 1,000 mL enema, 1 enema, Rectal, TID abhmjjlt-unhqlzayqy-zpfztliyg, , Topical, TID pantoprazole (ProtoNix) 40 mg [...] Tan MD Division of Hospitalist Medicine [facility] Images from the original note were [...] Tan MD Division of Hospitalist Medicine [facility] Images from the original note were [...] Surgery PGY-1 09/12/23 4:53 PM Pager # [phone] This note may have been dictated using [employer] Medical Practice Edition 2.6 and/or [employer] Voice Recognition Feature. The document was proofread; however, unrecognized voice recognition bowling ball molder errors may be present. Associated attestation - [...] FACS Division of Trauma Department of Surgery [facility] ~~~~~~~~~~~~~~~~~~~~~~~~~~~~~~~~ ~~~~~~~~~~~~~~~~~~~~~~~~~~~~~ This note may have been dictated using [employer] Medical Practice Edition 2.6 and/or [employer] Voice Recognition Feature. The document was proofread; however, unrecognized voice recognition bowling ball molder errors may be present. [facility] ADMISSION MEDICATION RECONCILIATION Date: 09/12/23 [facility] Patient Name: Carolina Bonilla Allergies: [...] on last fill dates from patient's [facility]. Home medications to restart if there [...] muscle mass loss Fluid Accumulation: Mild Ascites Periodontist Strength: Not Performed Nutrition Assessment: 47yo F [...] On: Kcal/kg Weight Used for Energy Requirements: [place] Weight for Energy Calculation (kg): 50 kg Total Energy Requirements (kcals/day): 27-32 kcal/kg = 0520-0298 kcal/day Weight Used for Protein Requirements: [place] Weight in Kg Used for Protein [...] 05/26/22 198#) % Weight Change (Calculated): 2.8 [place] Body Weight (lbs) (Calculated): 110 lbs [place] Body Weight (Kg) (Calculated): 50 kg % [place] Body Weight (Calculated): 186.9 % BMI [...] soon to determine Latha Lester RD Contact: *[phone] Images from the original note were not included. Hospitalist Progress Note 09/12/2023 Subjective: Admit Date: 09/09/2023 PCP: No primary care provider on file. Room#: W7-236/W7-167 A Brief Hospital course: Patient is 47-year-old [...] Saima Tan MD Division of Hospitalist Medicine [employer] [facility] Images from the original note were not included. Hospitalist Progress Note 09/11/2023 Subjective: Admit Date: 09/09/2023 PCP: No primary care provider on file. Room#: W7-726/[facility]726 A Interval History: Patient is 47-year-old with [...] Valentine MD Division of Hospitalist Medicine [facility] Nutrition rescreen completed. Patient is NPO/Clear liquid [...] to follow closely. documented in this encounter [facility] 09-15-2023 Hospital course Narrative Discharge Summary Carolina [...] SIGNIFICANT DIAGNOSTIC STUDIES: US guided abdominal paracentesis [[id number]] Collected: 09/14/23 1132 Order Status: Completed Updated: [...] 11:36 AM EST US guided abdominal paracentesis [[id number]] Collected: 09/10/23853 Order Status: Completed Updated: 09/10/23854 [...] AM EST CT abdomen pelvis w contrast [[id number]] Collected: 09/09/232018 Order Status: Completed Updated: 09/09/232028 [...] 8:28 PM EST XR chest 1 view [[id number]] Collected: 09/09/231846 Order Status: Completed Updated: 09/09/231848 Narrative: Patient Name: CAROLINA BONILLA : 1975 [facility]#: [id number] Exam Date/Time: 09/09/2023 18:44 Procedure: XR CHEST [...] Your Medications These medications were sent to [facility] [place] - [address] [place] [address] desvenlafaxine 100 MG 24 hr tablet doxepin 10 MG capsule traZODone 100 MG tablet DIET: Adult diet Regular ACTIVITY: No restriction. COMPLEXITY OF FOLLOW UP: [] Moderate Complexity: follow up within 7-14 calendar days (47697) [] Severe Complexity: follow up within 7 calendar days (60946) FOLLOW UP TESTING, PENDING RESULTS OR REFERRALS AT TRANSITIONAL CARE VISIT: [] Yes [] No PENDING STUDIES: DISPOSITION: Home FACILITY/HOME CARE AGENCY NAME: Follow up with Cristiana Strauss MD [address] [facility] [address] [facility] [id number] Schedule an appointment as soon as possible [...] 09/15/2023, 12:04 PM documented in this encounter [facility] 09-15-2023 Note Hospitalist Progress Note 09/15/2023 Subjective: [...] 1,000 mL enema, 1 enema, Rectal, TID ljtmmeni-izfexhiwva-upzfqgzdf, , Topical, TID pantoprazole (ProtoNix) 40 mg [...] Pedersen MD [facility] Division of Hospitalist Medicine [facility] 09-14-2023 Note Formatting of this n ote might be different from the original. Chart reviewed. Patient had paracentesis today with 1700 ml removed. Surgery is following patient for likely ileus -->no plans for intervention and recommend ADAT. Current discharge plan is home no needs once medically stable. [facility] 09-14-2023 Note Formatting of this n ote might be different from the original. Chart reviewed. Patient had paracentesis today with 1700 ml removed. Surgery is following patient for likely ileus -->no plans for intervention and recommend ADAT. Current discharge plan is home no needs once medically stable. [facility] 09-14-2023 Note Hospitalist Progress Note 09/14/2023 [...] 1,000 mL enema, 1 enema, Rectal, TID svubbcab-cjpxjxsmaf-eqdvletcs, , Topical, TID pantoprazole (ProtoNix) 40 mg [...] Pedersen MD [facility] Division of Hospitalist Medicine [facility] 09-14-2023 Note Formatting of this n ote might be different from the original. Patient to ultrasound department for paracentesis. History, medications and allergies reviewed. Samuel Pastor PA-C in to speak with patient. Informed consent obtained. 1700 mL clear yellow colored fluid removed. Patient tolerated procedure well. Bandaid applied to site. Patient discharged to [facility] 09-14-2023 Note Formatting of this n ote might be different from the original. Patient to ultrasound department for paracentesis. History, medications and allergies reviewed. Samuel Pastor PA-C in to speak with patient. Informed consent obtained. 1700 mL clear yellow colored fluid removed. Patient tolerated procedure well. Bandaid applied to site. Patient discharged to [facility] 09-13-2023 Note Hospitalist Progress Note 09/13/2023 Subjective: Admit Date: 09/09/2023 PCP: No primary care provider on file. Room#: W726/[facility] A Brief Hospital course: Patient is [...] Pedersen MD [facility] Division of Hospitalist Medicine [facility] 09-13-2023 Note Care Management Prog [...] Stay (Days): 4 GMLOS: No GMLOS Documented [facility] 09-13-2023 Note Formatting of this n [...] Stay (Days): 4 GMLOS: No GMLOS Documented [facility] 09-13-2023 Note Formatting of this n [...] Stay (Days): 4 GMLOS: No GMLOS Documented [facility] 09-12-2023 Note Hospitalist Progress Note 09/12/2023 [...] Saima Tan MD Division of Hospitalist Medicine [facility] 09-12-2023 Note Formatting of this n ote might be different from the original. Care Managment Initial Assessment Date: 09/12/2023 Patient Name: Carolina Bonilla : 1975 Patient Information Source of Information: Patient Cognition/Language: WFL - Within Functional Limits Permission given to speak with patient community health program representative/caregiver as indicated: Yes Confirmation of Payer with patient/family: Yes Payer Name: [facility] Medicaid [place]: No Confirmation of Primary Care Physician: Confirmed [...] home with Significant Other. Meg Herrmann RN [facility] 09-12-2023 Note Formatting of this n ote might be different from the original. Care Managment Initial Assessment Date: 09/12/2023 Patient Name: Carolina Bonilla : 1975 Patient Information Source of Information: Patient Cognition/Language: WFL - Within Functional Limits Permission given to speak with patient community health program representative/caregiver as indicated: Yes Confirmation of Payer with patient/family: Yes Payer Name: [facility] Medicaid [place]: No Confirmation of Primary Care Physician: Confirmed [...] home with Significant Other. Meg Herrmann RN [employer] [facility] 09-11-2023 Note Formatting of this n ote might be different from the original. Attempted to complete Initial assessment over the phone. Patient currently unavailable/off unit. Will try again as time allows. TCC will follow. [email or web address] 09-11-2023 Note Formatting of this n ote might be different from the original. Attempted to complete Initial assessment over the phone. Patient currently unavailable/off unit. Will try again as time allows. TCC will follow. [email or web address] 09-11-2023 Note Hospitalist Progress Note 09/11/2023 Subjective: [...] Judah Valentine MD Division of Hospitalist Medicine [facility] 09-11-2023 Note ADDICTION MEDICINE CONSULTATION [...] Physical Exam Vi (more content not included)... [facility] 09-11-2023 Hospital Discharg e [facility] Jozef Cordova MD - 09/11/2023 11:48 AM EST Images from the original note were not included. [facility] Addiction Medicine Intensive Outpatient Program [place] ([facility]): [phone] [place]: [phone] [place]: [phone] Behavioral Health Intensive Outpatient Program [place] ([facility]): [phone] [place]: [phone] First Step [place] ([facility]): [phone] [place]: [phone] Partial Hospitalization Program [place] ([facility]): [phone] Traumatic Stress Center [place] ([facility]): [phone] [facility] ([facility]): [phone] Alcoholics Anonymous Meetings [email or web address] [facility] [address], [address], [place] [address] Saima Tan MD - 09/15/2023 12:01 PM EST F/U with PCP, GI, Addiction Medicine documented in this encounter [facility] 09-11-2023 Consult note Associated Order (s): IP [...] 09/09/2023 Patient Name: [facility] 1975 [id number] Exam Date/Time: 09/09/2023 18:44 Procedure: XR CHEST [...] 455 ms QTC Interval 501 ms P Donie 55 degrees QRS Donie -7 degrees T Wave Donie 28 degrees CA Interval 157 ms CBC auto differential Collection [...] clinical information on the day of visit. [facility] 09-11-2023 Consult note Associated Order (s): [...] 09/09/2023 Patient Name: CAROLINA [facility]ILL[facility] : 1975 [id number] Exam Date/Time: 09/09/2023 18:44 Procedure: XR CHEST [...] 455 ms QTC Interval 501 ms P Donie 55 degrees QRS Donie -7 degrees T Wave Donie 28 degrees CA Interval 157 ms CBC auto differential Collection [...] day of visit. documented in this encounter [facility] 09-11-2023 Nurse Note Pt was found wandering the hospital by security, confused. Pt brought back by security and she said she was going outside to smoke. She was very upset that she could not have a smoke. Pt threatened to punch someone in the face. Pt is confused. [facility] 09-11-2023 Nurse Note Pt was found wandering the hospital by security, confused. Pt brought back by security and she said she was going outside to smoke. She was very upset that she could not have a smoke. Pt threatened to punch someone in the face. Pt is confused. documented in this encounter [facility] 09-10-2023 Note Attending History an d Physical [...] hours. I revie (more content not included)... [facility] 09-10-2023 History and physical note Images [...] MD Division of Hospitalist Medicine [place] [facility] [place] Work Phone: 09-10-2023 History and physical [...] MD Division of Hospitalist Medicine [facility] [facility] [place] documented in this encounter [facility] 09-10-2023 Emergency department Note Report given to 7W at this time. Transport en route. Laura Antony RN 09/10/23 050 [facility] 09-10-2023 Emergency department Note Report given to 7W at this time. Transport en route. Laura Antony RN 09/10/23 050 They are here now to transport the patient to [facility] Carolann [facility] 09/10/23 0447 [facility] ETA 0430 RN will call report in a few :) Afua S [facility] 09/10/23 0432 EMERGENCY DEPARTMENT ENCOUNTER Pt Name: [...] Culture. Procedure Abnormality Status --------- ------ Complete Urinalysis[[id number]] Abnormal Final result Please view results for [...] obstruction. Disposition admission to medical service at [facility]. [facility] unfortunately does not have the capacity to perform paracentesis if deemed necessary. Given this illness provider would like patient be transferred to [facility] for small bowel obstruction management, general surgery consultation. Discussed with Dr. Smith who accepted patient for transfer. Patient will be transferred to [facility]. PROCEDURES: Unless otherwise noted below, none Procedures [...] to contact the dictating provider for clarification.) JOES Collins (electronically signed) Emergency Medicine Provider JOSE Collins 09/09/232117 Emergency Department Encounter [facility] ED Patient: Carolina Bonilla : 1975 Date of Evaluation: 09/09/2023 ED Supervising Physician: Lenny Macdonald MD I independently examined and evaluated Carolina Bonilla. This will serve as my Supervisory note as the can line operator of record and shared attestation. I did [...] inpatient medicine team they recommend transfer to [facility] as they do not have IRP abilities [...] for clarification.) Lenny Macdonald MD Acute Care [facility] Lenny Macdonald MD 09/12/23 1500 Pt c/o abdominal pain that began this afternoon, states that she has hx of cirrhosis. Family states she seems off. documented in this encounter [facility] 09-10-2023 Emergency department Note They are here now to transport the patient to [facility] 09/10/23 0447 [facility] 09-10-2023 Emergency department Note [facility] ETA 0430 RN will call report in a few :) Afua Vuong Waldo 09/10/23 0432 [facility] 09-09-2023 Emergency department Triage note Pt c/o abdominal pain that began this afternoon, states that she has hx of cirrhosis. Family states she seems off. [facility] 09-09-2023 Physician Emergency department Note EMERGENCY [...] Culture. Procedure Abnormality Status --------- ------ Complete Urinalysis[[id number]] Abnormal Final result Please view results for [...] obstruction. Disposition admission to medical service at [facility]. [facility] unfortunately does not have the capacity to perform paracentesis if deemed necessary. Given this illness provider would like patient be transferred to [facility] for small bowel obstruction management, general surgery consultation. Discussed with Dr. Smith who accepted patient for transfer. Patient will be transferred to [facility]. PROCEDURES: Unless otherwise noted below, none Procedures [...] signed) Emergency Medicine Provider JOSE Collins 09/09/232117 [facility] 09-09-2023 Physician Emergency department Note Emergency Department Encounter [facility] ED Patient: Carolina Bonilla : 1975 Date of Evaluation: 09/09/2023 ED Supervising Physician: Lenny Macdonald MD I independently examined and evaluated Carolina Bonilla. This will serve as my Supervisory note as the can line operator of record and shared attestation. I did [...] inpatient medicine team they recommend transfer to [facility] as they do not have IRP abilities [...] [employer] Lenny Macdonald MD 09/12/23 1500 -[facility] [employer] Phone: 03-24-2023 Miscellaneous Notes Attempted to contact [...] advise. Miladis Blair documented in this encounter [facility] 01-27-2023 Miscellaneous Notes Pt notified. Melisa [...] medication names. Please send RX to [facility] in [place] and advise patient when these have been ordered by provider per patient request. Patient has been identified by name and birthdate. Duration of symptoms: months Person calling: self Call patient at: at home [phone] (home) [phone] (cell) Was an appointment scheduled: No Closing statement: Results or non-symptom based questions: Thank you for calling [facility], your call will be returned within the next business day. [employer] documented in this encounter [facility] 01-25-2023 Miscellaneous Notes January 26, 2023 PID: [id number] Carolina Bonilla [facility] [address] [address] Dear Jackie Bonilla, Your recent breast imaging [...] who ordered/prescribed your screening mammogram: Please call [phone] or [phone]: [phone] to schedule an appointment for your additional [...] and reports are kept on file at [facility] as part of your permanent medical record, and are available for your continuing care. Thank you for allowing us to help in meeting your health care needs. Sincerely, Dr. Estrada Interpreting Radiologist [facility] (Additional imaging) documented in this encounter [facility] 12-02-2022 Note HNO ID: [id number] Author: JOSE Vega Service: ? Author Type: Physician Installment Account Checker Type: Progress Notes Filed: 12/02/2022 1:01 PM Note Text: This note was created using [employer]. Subjective Carolina Bonilla is a 47 year [...] PAST SURGICAL HISTORY OF 2018 liver bx [facility] ALLERGIES Aspirin, Bupropion, Codeine, Prednisone, [...] and questions were (more content not included)... [facility] 12-02-2022 History of Presen t illness Narrative Images from the original note were not included. This note was created using [employer]. Subjective Carolina Bonilla is a 47 year [...] PAST SURGICAL HISTORY OF 2018 liver bx [facility] ALLERGIES Aspirin, Bupropion, Codeine, Prednisone, [...] evaluation. JOSE Vega documented in this encounter [facility] 10-02-2022 Miscellaneous Notes Left message of results on secure voicemail. Kayleen Rapp MA Please call patient and inform that her wound culture is negative. She can quit taking the ATB. She needs to follow up as directed. documented in this encounter [facility] 09-29-2022 Influenza virus A and B RNA and SARS-CoV-2 (COVID-19) N gene panel PHYLLIS+probe (Resp) COVID 19 RESULT: SARS-CoV-2 (Agent of COVID-19) Not Detected by RT-PCR or equivalent method. lyndon [id number] (EMILY)_EUA This test was developed and its performance characteristics determined by [facility]. This test has been authorized by FDA under an Emergency Use Authorization (EUA). This test has been validated in accordance with the FDA's Guidance Document Policy for Diagnostics Testing in Laboratories Certified to Perform High Complexity Testing under CLIA prior to Emergency use Authorization for Coronavirus Disease 2019 during the Public Health Emergency issued on November 24, 2019. Test performed by [facility], [facility], [address] [place] [address]. INFLUENZA A PCR: Negative for Influenza A by RT-PCR INFLUENZA B PCR: Negative for Influenza B by RT-PCR [facility] Bacterial skin infection- Primary Unspecified local infection of skin and subcutaneous tissue Acne vulgaris Other acne Chronic midline low back pain with bilateral sciatica [facility] Encounter for screening mammogram for breast cancer [facility] Diagnosis Wound check, abscess- Primary Encounter for other specified aftercare [facility] Diagnosis Dermatitis- Primary Contact dermatitis and other eczema, due to unspecified cause [facility] Diagnosis Chronic midline low back pain with bilateral sciatica [facility] Diagnosis Cellulitis of chin- Primary Cellulitis and abscess of face Picking own skin Other disorder of impulse control URI, acute Acute upper respiratory infections of unspecified site [facility] Diagnosis Skin infection- Primary Unspecified local infection of skin and subcutaneous tissue [facility] Diagnosis Cellulitis of chin Cellulitis and abscess of face documented in this encounter [facility] note* Diagnosis Low back pain, unspecified back pain laterality, unspecified chronicity, unspecified whether sciatica present documented in this encounter [facility] note* Diagnosis Encounter for screening mammogram for breast cancer documented in this encounter [facility] note* Diagnosis Small bowel obstruction (HCC)- Primary Unspecified intestinal obstruction Small bowel obstruction (HCC) Unspecified intestinal obstruction Polysubstance use disorder documented in this encounter [facility] for referral (narrative)* Diagnostic Procedure Only (Routine) - Pending Review Specialty Diagnoses / Procedures Referred By Marivel cao Referred To Contact [facility] Diagnoses Encounter for screening mammogram for breast cancer Procedures JEANETH SCREENING SCREENING MAMMOGRAPHY BI 2-[place] [address] [place] [address] [facility] [address] [place] [address] Referral ID Status Reason Start Date Expiration Date Visits Requested Visits Authorized [id number] Pending Review Auto-Generat ed Referral 03/24/2022 04/23/2023 1 1 T [facility] for referral (narrative)* Diagnostic Procedure Only (Routine) - Closed Specialty Diagnoses / Procedures Referred By Marivel cao Referred To Contact [facility] Diagnoses Encounter for screening mammogram for breast cancer Procedures JEANETH SCREENING SCREENING MAMMOGRAPHY BI 2-VIEW BREAST INC Dacia Rice MD [address] [place] [address] [facility] [address] [place] [address] Referral ID Status Reason Start Date Expiration Date V isits Requested Visits Authorized [id number] Closed Auto-Generate d Referral 03/24/2022 04/23/2023 1 1 T [facility] for visit Narrative* Diagnostic Procedure Only (Routine) - Closed Specialty Diagnoses / Procedures Referred By Marivel cao Referred To Contact [facility] Diagnoses Encounter for screening mammogram for breast cancer Procedures JEANETH SCREENING SCREENING MAMMOGRAPHY BI 2-VIEW BREAST INC Dacia Rice MD [address] [place] [address] [facility] [address] [place] [address] Referral ID Status Reason Start Date Expiration Date V isits Requested Visits Authorized [id number] Closed Auto-Generate d Referral 03/24/2022 04/23/2023 1 1 [facility] Summary Purpose Family History No Family History Records FoundNo Family History Records FoundNo Family History Records FoundNo Family History Records FoundNo Family History Records Found Advance Directives No Advanced Directives Records FoundDocuments on File Type Date Recorded Patient Service Department Manager Expl anation Advance Directive(s) 08/05/2018 8:00 PM Advance Directive(s) 08/04/2018 9:24 AM Documents on File Type Date Recorded Patient Service Department Manager Expl anation Advance Directive(s) 08/05/2018 8:00 PM [...] Procedures CONSULT TO DERMATOLOGY Tresa Wells APRN.CNP [address] [place] [address] Referral ID Status Reason Start Date Expiration Date Visits Requested Visits Authorized [id number] Ref Not Required PCP Requested Referral 03/11/2022 03/11/2023 1 1 Specialty Diagnoses / Procedures Referred By Contac t Referred To Contact Saima Tan MD [address] [place] [address] Referral ID Status Reason Start Date Expiration Date V isits Requested Visits Authorized [id number] Pending Review 1 1 Additional Source Comments INFORMATION SOURCE (unrecogn ized section and content) DATE CREATED AUTHOR AUTHOR'S ORGANIZ ATION 09/03/2018 [facility] DATE CREATED AUTHOR AUTHOR'S ORGANIZ ATION 11/10/2021 [facility] DATE CREATED AUTHOR AUTHOR'S ORGANIZ ATION 09/24/2023 [facility] DATE CREATED AUTHOR AUTHOR'S ORGANIZ ATION 10/02/2023 [facility] Source Comments (unrecognize d section and content) In the event this informatio n is protected by the Federal Confidentiality of Alcohol and Drug Abuse Patient Records regulations: The Federal rules restrict any use of the information to criminally investigate or prosecute any alcohol or drug abuse [facility] the event this information is protected by the Federal Confidentiality of Alcohol and Drug Abuse Patient Records regulations: The Federal rules restrict any use of the information to criminally investigate or prosecute any alcohol or drug abuse patient.[facility] the event this information is protected by the Federal Confidentiality of Alcohol and Drug Abuse Patient Records regulations: The Federal rules restrict any use of the information to criminally investigate or prosecute any alcohol or drug abuse patient.[facility] the event this information is protected by the Federal Confidentiality of Alcohol and Drug Abuse Patient Records regulations: The Federal rules restrict any use of the information to criminally investigate or prosecute any alcohol or drug abuse patient.[facility] the event this information is protected by the Federal Confidentiality of Alcohol and Drug Abuse Patient Records regulations: The Federal rules restrict any use of the information to criminally investigate or prosecute any alcohol or drug abuse patient.[facility] the event this information is protected by the Federal Confidentiality of Alcohol and Drug Abuse Patient Records regulations: The Federal rules restrict any use of the information to criminally investigate or prosecute any alcohol or drug abuse patient.[facility] the event this information is protected by the Federal Confidentiality of Alcohol and Drug Abuse Patient Records regulations: The Federal rules restrict any use of the information to criminally investigate or prosecute any alcohol or drug abuse patient.[facility] the event this information is protected by the Federal Confidentiality of Alcohol and Drug Abuse Patient Records regulations: The Federal rules restrict any use of the information to criminally investigate or prosecute any alcohol or drug abuse patient.[facility] the event this information is protected by the Federal Confidentiality of Alcohol and Drug Abuse Patient Records regulations: The Federal rules restrict any use of the information to criminally investigate or prosecute any alcohol or drug abuse patient.[facility] the event this information is protected by the Federal Confidentiality of Alcohol and Drug Abuse Patient Records regulations: The Federal rules restrict any use of the information to criminally investigate or prosecute any alcohol or drug abuse patient.[facility] the event this information is protected by the Federal Confidentiality of Alcohol and Drug Abuse Patient Records regulations: The Federal rules restrict any use of the information to criminally investigate or prosecute any alcohol or drug abuse patient.[facility] Hospital[facility] the event this information is protected by the Federal Confidentiality of Alcohol and Drug Abuse Patient Records regulations: The Federal rules restrict any use of the information to criminally investigate or prosecute any alcohol or drug abuse patient.[facility] the event this information is protected by the Federal Confidentiality of Alcohol and Drug Abuse Patient Records regulations: The Federal rules restrict any use of the information to criminally investigate or prosecute any alcohol or drug abuse patient.[facility] Hospital[facility] the event this information is protected by the Federal Confidentiality of Alcohol and Drug Abuse Patient Records regulations: The Federal rules restrict any use of the information to criminally investigate or prosecute any alcohol or drug abuse patient.[facility] the event this information is protected by the Federal Confidentiality of Alcohol and Drug Abuse Patient Records regulations: The Federal rules restrict any use of the information to criminally investigate or prosecute any alcohol or drug abuse patient.[facility] Hospital[facility] the event this information is protected by the Federal Confidentiality of Alcohol and Drug Abuse Patient Records regulations: The Federal rules restrict any use of the information to criminally investigate or prosecute any alcohol or drug abuse patient.[facility] HospitalIn the event this information is protected by the Federal Confidentiality of Alcohol and Drug Abuse Patient Records regulations: The Federal rules restrict any use of the information to criminally investigate or prosecute any alcohol or drug abuse patient.[facility] HospitalIn the event this information is protected by the Federal Confidentiality of Alcohol and Drug Abuse Patient Records regulations: The Federal rules restrict any use of the information to criminally investigate or prosecute any alcohol or drug abuse patient.[facility] HospitalIn the event this information is protected by the Federal Confidentiality of Alcohol and Drug Abuse Patient Records regulations: The Federal rules restrict any use of the information to criminally investigate or prosecute any alcohol or drug abuse patient.[facility] HospitalIn the event this information is protected by the Federal Confidentiality of Alcohol and Drug Abuse Patient Records regulations: The Federal rules restrict any use of the information to criminally investigate or prosecute any alcohol or drug abuse patient.[facility] HospitalIn the event this information is protected by the Federal Confidentiality of Alcohol and Drug Abuse Patient Records regulations: The Federal rules restrict any use of the information to criminally investigate or prosecute any alcohol or drug abuse patient.[facility] Reason for Visit (unrecogniz ed section [...] (HCC) Procedures . Cindi Smith MD [address] [address] [facility] 7w Respiratory [address] [place] [address] Referral ID Status Reason Start Date Expiration Date Visits Re quested Visits Authorized [id number] 1 1 Care Teams (unrecognized sec tion and content) Communications Strategist Relationship Specialty Start Date End Date Dacia Leo MD [address] [place] [address] PCP - General Family Practice 08/24/10 Communications Strategist Relationship Specialty Start Date End Date Dacia Leo MD [address] [place] [address] PCP - General Family Practice 08/24/10 Communications Strategist Relationship Specialty Start Date End Date Dacia Leo MD [address] [place] [address] PCP - General Family Practice 08/24/10 Communications Strategist Relationship Specialty Start Date End Date Dacia Leo MD [address] [place] [address] PCP - General Family Practice 08/24/10 Communications Strategist Relationship Specialty Start Date End Date Dacia Leo MD [address] [place] [address] PCP - General Family Practice 08/24/10 Communications Strategist Relationship Specialty Start Date End Date Dacia Leo MD [address] [place] [address] PCP - General Family Practice 08/24/10 Communications Strategist Relationship Specialty Start Date End Date Dacia Leo MD [address] [place] [address] PCP - General Family Practice 08/24/10 Communications Strategist Relationship Specialty Start Date End Date Dacia Leo MD [address] [place] [address] PCP - General Family Practice 08/24/10 Communications Strategist Relationship Specialty Start Date End Date Dacia Leo MD [address] [place] [address] PCP - General Family Practice 08/24/10 Communications Strategist Relationship Specialty Start Date End Date Dacia Leo MD [address] [place] [address] PCP - General Family Medicine 08/24/10 Communications Strategist Relationship Specialty Start Date End Date Dacia Leo MD [address] [place] [address] PCP - General Family Medicine 08/24/10 Communications Strategist Relationship Specialty Start Date End Date Dacia Leo MD [address] [place] [address] PCP - General Family Medicine 08/24/10 Communications Strategist Relationship Specialty Start Date End Date Dacia Leo MD [address] [place] [address] PCP - General Family Medicine 08/24/10 Communications Strategist Relationship Specialty Start Date End Date Dacia Leo MD [address] [place] [address] PCP - General Family Medicine 08/24/10 Communications Strategist Relationship Specialty Start Date End Date Dacia Loe MD [address] [place] [address] PCP - General Family Medicine 08/24/10 Communications Strategist Relationship Specialty Start Date End Date Dacia Leo MD [address] [facility] [place] [id number] PCP - General Family Medicine 08/24/10 Communications Strategist Relationship Specialty Start Date End Date Dacia Leo MD [address] [place] [address] PCP - General Family Medicine 08/24/10 Scheduled [...] sedation for opioid reversal - MUST notify cushion maker provider immediately after first dose, may give [...] - Provider: Haritha Martinez RN) sodium chloride (Brock) 0.65 % nasal spray 2 spray 2 [...] BE BASED ON THE PRIMARY CLINICAL RECORDS. [facility]. provides no warranty or guarantee of the accuracy or completeness of information in this document.
[2023-10-07] VITALS (7 sets, daily range): BP systolic 105–129; BP diastolic 55–79; PULSE 50–74; RESP 16–18; TEMP 36.6–36.9; O2SAT 93–100
--- NOTE | 2023-10-07 | FLU_PTH ---
PATHOLOGY RESULTS PATIENT: CAROLINA HIGHTOWER LOC: MS3 U#:[id number] AGE/SX: 47/F ROOM: [facility] [place] RE10/06/[address]: Dr. Oscar Pantoja MD : 1975 BED: 1 DIS: 10/08/2023 SPEC #: [id number] RECD: 10/10/23 07:30 STATUS: TRAMAINE REDawna #: [id number] KYLAH: 10/07/23 00:[address]: Oscar Pantoja DEPT: CYTOLOGY RECD BY: Sury Hutton ENTERED: 10/10/23 07:30 SP TYPE: Fluid OTHR DR: MD Dr. Elena Govea MD Tissues: PARACENTESIS FLUID Procedures: Special Stain Group II Surgery Specimen Level IV Cytospin Fluid HEADER OPERATION: Paracentesis right upper quadrant PRE-OP DIAGNOSIS: Ascites TISSUE SUBMITTED: Paracentesis fluid for cytology DIAGNOSIS CYTOLOGY Paracentesis fluid for cytology (cytospin and cell block): Negative for malignant cells. AM:samy 10/11/2023 CYTOLOGY STUDY Slides are reviewed. CYTOLOGY GROSS Received is 83 ml of yellow cloudy fluid labeled with the patient's name and and designated per the requisition as paracentesis. Submitted for cytology preparation including cell block. / samy 10/10/2023 TC:5 CPT: 10252, 41264
[2023-10-07] MEDS: Gabapentin 100 MG Capsule PO ×3 (00:09→21:15)
[2023-10-07] MEDS: oxyCODONE 5 MG Tablet PO ×3 (03:04→11:52)
[2023-10-07 05:21] LABS: Absolute Lymphocyte Count 2.03 X10^3/uL (0.83-4.51); Absolute Neutrophil Count 3.5 X10^3/uL (2.0-7.7); Basophil# 0.04 X10^3/uL; Basophil% 0.6 % (0-1); Eosinophil# 0.21 X10^3/uL; Eosinophils% 3.2 % (0-5); Hematocrit 29.1 % (37-47); Hemoglobin 8.8 g/dL (12.0-15.0); Lymphocyte # 2.03 X10^3/ul (0.83-4.51); Lymphocyte % 31.1 % (19-41); Mean Corp Hgb Conc 30.2 g/dL (32-36); Mean Corpuscular Hgb 23.2 pg (27.0-32.0); Mean Corpuscular Volume 76.6 fL (81-99); Monocyte# 0.71 X10^3/uL; Monocyte% 10.9 % (0-10); NRBC Flagged by Analyzer 0 % (0-5); Neutrophil # 3.51 X10^3/uL (2.7-7.7); Neutrophil % 53.9 % (47-70); POSITIVE COUNT YES; POSITIVE MORPHOLOGY YES; Platelet Count 68 K/mm3 (150-450); RBC Distribution Width CV 23.3 % (11.6-14.6); RBC Distribution Width SD 64.3 fl (35.1-43.9); White Blood Count 6.5 K/mm3 (4.4-11.0)
[2023-10-07 05:32] LABS: Differential Indicated SCAN CRITERIA MET
[2023-10-07 05:48] LABS: ALB/GLOB Ratio 0.5 RATIO (0.9-2.4); AST(SGOT) 124 U/L (15-37); Alanine Aminotransfer ALT/SGPT 60 U/L (13-56); Albumin, Serum 2.2 g/dL (3.2-5.0); Alkaline Phosphatase 123 U/L (45-117); Anion Gap 4 (5-15); BUN 6 mg/dL (7-18); BUN/Creat Ratio 7.5 RATIO (10-20); Calcium,Total 7.8 mg/dL (8.5-10.1); Chloride 111 mmol/L (98-107); EST Glomerular Filtration Rate 81 mL/min (>60); Est Glom Filt Rate - Afr Amer 98 mL/min (>60); Estimated Creatinine Clearance 89.41 ml/min; Globulin 4.1 g/dL (2.2-4.2); Glucose 108 mg/dL (74-106); Potassium 3.4 mmol/L (3.5-5.1); Protein, Total 6.3 g/dL (6.4-8.2); Sodium Level 140 mmol/L (136-145)
[2023-10-07] MEDS: Lactulose 20 GM/30 ML UDC PO ×3 (05:51→21:15)
[2023-10-07 05:53] LABS: Anisocytosis 2+; Differential Comment SCANNED; Microcytosis 1+
--- NOTE | 2023-10-07 06:00 | US_ITS ---
PROCEDURE: Ultrasound guided paracentesis. DATE OF EXAMINATION: October 07, 2023. INDICATION: Female, 47 years old. Ascites. PHYSICIAN: Isidro Burnett M.D. TECHNIQUE: The risks, benefits, and alternatives to the procedure were explained to the patient. The specific risks of bleeding, infection, and damage to bowel were detailed and accepted. Witnessed informed consent was obtained. The abdomen was ultrasonographically surveyed. An appropriate pocket of fluid was identified at the right lower quadrant. The skin were cleaned and prepped in the usual sterile fashion. Using ultrasound guidance, the peritoneal cavity was accessed with a 5-Malawian paracentesis needle/catheter system. The trocar was removed. A total of 2450 ml of jose manuel-colored fluid were removed from the peritoneal cavity. A 100 mL sample of fluid was sent to the laboratory. The catheter was removed and a sterile dressing was applied. The procedure was well tolerated. US/Paracentesis with US IMPRESSION: Ultrasound guided paracentesis. Electronically Signed: Isidro Burnett MD at 14:44 EST ,
--- NOTE | 2023-10-07 07:57 | PCM.PN.HOSP ---
Reason for Visit Reason for Visit: Diagnoses Alcoholic hepatitis with ascites (10/06/23) Unspecified cirrhosis of liver (10/06/23) Other ascites (10/06/23) Subjective Subjective Patient is a 47-year-old lady with history of alcoholic liver cirrhosis who presented with abdominal distention and pain. Patient was found to have massive ascites on CAT scan admitted to regular nursing floor for subsequent inpatient management Objective Data Objective Data Vital Signs: Vital Signs Temp Pulse Resp BP Pulse Ox O2 Del Method 97.9 F 74 18 108/67 95 Room Air 10/07/23 05:54 10/07/23 05:54 10/07/23 05:54 10/07/23 05:54 10/07/23 05:54 10/07/23 05:54 Oxygen Delivery Method Room Air Weight: 91.3 kg Body Mass Index (BMI) 36.8 Intake & Output: Intake and Output for Last 24 Hours 10/05/23 10/06/23 10/07/23 23:59 23:59 23:59 Intake Total 1050 / 1050 Balance 1050 / 1050 Lab / Micro Data 10/07/23 04:25 10/07/23 04:25 Labs: Laboratory Results - last 24 hr 10/06/23 18:30: WBC 7.2, RBC 4.24, Hgb 9.6 L, Hct 32.4 L, MCV 76.4 L, MCH 22.6 L, MCHC 29.6 L, RDW Std Deviation 63.3 H, RDW Coeff of Katalina 23.3 H, Plt Count 76 L, MPV TNP, Immature Gran % (Auto) 0.300, Neut % (Auto) 64.6, Lymph % (Auto) 23.6, [place] % (Auto) 8.2, Eos % (Auto) 2.5, Baso % (Auto) 0.8, Absolute Neuts (auto) 4.6, Absolute Lymphs (auto) 1.70, Nucleated RBC % 0, Platelet Estimate MOD DEC, RBC Morphology N CHROM, Hypochromasia 1+, Anisocytosis 1+, Microcytosis 1+, Ovalocytes RARE, Sodium 140, Potassium 3.3 L, Chloride 110 H, Carbon Dioxide 25.0, Anion Gap 5, BUN 6 L, Creatinine 0.87, Estim Creat Clear Calc 83.81, Est GFR (MDRD) Af Amer 89, Est GFR (MDRD) Non-Af 73, BUN/Creatinine Ratio 6.9 L, Glucose 103, Calcium 8.6, Total Bilirubin 2.20 H, Direct Bilirubin 0.94 H, AST 144 H, ALT 70 H, Alkaline Phosphatase 153 H, Total Protein 7.4, Albumin 2.6 L, Globulin 4.8 H, Lipase 38 10/06/23 19:00: PT 21.1 H, INR 1.8 10/07/23 04:25: WBC 6.5, RBC 3.80 L, Hgb 8.8 L, Hct 29.1 L, MCV 76.6 L, MCH 23.2 L, MCHC 30.2 L, RDW Std Deviation 64.3 H, RDW Coeff of Katalina 23.3 H, Plt Count 68 L, Immature Gran % (Auto) 0.300, Neut % (Auto) 53.9, Lymph % (Auto) 31.1, [place] % (Auto) 10.9 H, Eos % (Auto) 3.2, Baso % (Auto) 0.6, Absolute Neuts (auto) 3.5, Absolute Lymphs (auto) 2.03, Nucleated RBC % 0, Differential Comment SCANNED, Anisocytosis 2+, Microcytosis 1+, Sodium 140, Potassium 3.4 L, Chloride 111 H, Carbon Dioxide 25.0, Anion Gap 4 L, BUN 6 L, Creatinine 0.80, Estim Creat Clear Calc 89.41, Est GFR (MDRD) Af Amer 98, Est GFR (MDRD) Non-Af 81, BUN/Creatinine Ratio 7.5 L, Glucose 108 H, Calcium 7.8 L, Total Bilirubin 1.50 H, AST 124 H, ALT 60 H, Alkaline Phosphatase 123 H, Total Protein 6.3 L, Albumin 2.2 L, Globulin 4.1, Albumin/Globulin Ratio 0.5 L Radiography Diagnostic Testing: Radiology Impression Abdomen/Pelvis CT 10/06/23 19:38 IMPRESSION: Cirrhotic liver with extensive and unchanged abdominal ascites Stable splenomegaly Abnormally distended gallbladder with gallbladder enhancement and wall thickening but no gallstones or biliary dilatation is noted. Acalculus cholecystitis can have this appearance Nonobstructing nephrolithiasis Stable mild nonspecific dilatation of the right renal pelvis and proximal right ureter without obstructing stone Some mucosal thickening in the stomach consistent with gastritis Electronically Signed: Jorge Mcknight MD at 20:37 EST , Physical Exam Narrative GENERAL: cooperative HEENT: Atraumatic; normocephalic EYES; Anicteric, Normal Conjunctiva NECK; supple, normal thyroid, RESPIRATORY: Diminished to auscultation CARDIOVASCULAR: Regular S1 S2, GI: Abdomen markedly distended dull to percussion : No Renal angle tenderness; EXTREMITIES: No edema, no clubbing, MUSCULOSKELETAL: no muscle wasting NEURO: Awake; no lateralizing signs. SKIN: No Rash PSYCH; Flat affect Assessment & Plan Assessment/Plan (1) Cirrhosis of liver: QUALIFIERS: Hepatic cirrhosis type: unspecified hepatic cirrhosis Ascites presence: with ascites Qualified Code(s): K74.60 - Unspecified cirrhosis of liver; R18.8 - Other ascites (2) Ascites: QUALIFIERS: Ascites type: due to alcoholic hepatitis Qualified Code(s): K70.11 - Alcoholic hepatitis with ascites PLAN: Plan Patient is a 47-year-old lady with history of alcoholic liver cirrhosis who presented with abdominal distention and pain. Patient was found to have massive ascites on CAT scan admitted to regular nursing floor for subsequent inpatient management 1. Massive ascites ? In the patient with alcoholic liver cirrhosis. Patient has been admitted to regular nursing floor plan is for patient to undergo diagnostic and therapeutic paracentesis 2. Distended gallbladder ? Right upper quadrant ultrasound ordered for subsequent evaluation 3. Alcoholic cirrhosis of the liver ? Patient is followed by GI as outpatient. Currently on lactulose nadolol and spironolacto did continue 4. Anemia - Secondary to chronic disorder monitoring H&H and transfuse if patient becomes symptomatic or hemoglobin falls below 7. EGD 09.15.?noting Grade I esophageal varices; severe portal HTN gastropathy. H.Pylori negative.? 5. COPD ? Currently not in exacerbation 6. Depression ? On aripiprazole and desvenlafaxine 7. Chronic alcohol dependence ? Patient admitted to occasionally alcohol use. Counseled on the need for cessation 8. Tobacco dependence - Counseled on cessation, offered nicotine patch for tobacco cravings 9. Class II obesity with BMI of 36.8 ? Complicating care weight loss advised 9. Thrombocytopenia ? Secondary to cirrhosis of the liver monitoring with daily CBC with differential 10. Hypokalemia - corrected per protocol repeat labs ordered for monitoring 11. DVT prophylaxis ? SCDs only Time spent in the patient's overall evaluation,decision-making process, review of diagnostic data, adjustment of management, discussion with other providers, nursing nursing and ancillary staff involved in patient's care documentation, 50 Minutes Charges/Coding Visit Charges Inpatient E&M: 14153 [facility] [[email or web address]] Hosp L3
[2023-10-07] MEDS: Spironolactone 50 MG Tablet 75 MG PO (09:50)
[2023-10-07] MEDS: Topiramate 100 MG Tablet PO ×2 (09:50→21:16)
[2023-10-07] MEDS: ARIPiprazole 10 MG Tablet 30 MG PO (09:51)
[2023-10-07] MEDS: Potassium Chloride Oral Tablet 20 MEQ 40 MEQ PO (09:51)
[2023-10-07] MEDS: Nadolol 20 MG Tablet PO (09:51)
[2023-10-07] MEDS: Ceftriaxone 1 GM/50 ML BAG IV (10:51)
[2023-10-07] MEDS: Venlafaxine XR 75 MG Capsule PO (11:53)
[2023-10-07] MEDS: Lidocaine 2% (20 ml mdv) 20 ML Vial INFILT (13:42)
[2023-10-07] MEDS: Ondansetron 4 MG/2 ML Vial IV (14:14)
[2023-10-07] MEDS: 0.9% Saline Lock 10 ML Syringe IV (14:14)
[2023-10-07 14:41] LABS: Body Fluid Mononuclear WBC # 0.197 10^3/uL; Body Fluid Mononuclear WBC % 93.3 %; Body Fluid Polynuclear WBC # 0.014 10^3/uL; Body Fluid Polynuclear WBC % 6.7 %; Body Fluid Total Cells Counted 0.276 10^3/ul; White Blood Count/Body Fluid 0.211 10^3/uL
--- NOTE | 2023-10-07 15:27 | US_ITS ---
STUDY: ABDOMINAL ULTRASOUND - RIGHT UPPER QUADRANT REASON FOR VISIT: Female, 47 years old Thickened gallbladder TECHNIQUE: Ultrasound evaluation of the right upper quadrant was performed with real-time and static astorga-scale imaging. TECHNICAL QUALITY: Adequate. COMPARISON: CT 10/06/2023 FINDINGS: Liver: The liver measures 16.4 cm. There is a heterogeneous echogenicity of the liver. The bile ducts are within normal limits. There is hepatic color flow. The direction of portal flow is hepatopetal. There is no demonstrated mass lesion. Small amount of ascites. Gallbladder: Normal distended gallbladder. The gallbladder wall measures 12 mm. There is a negative sonographic Wellington''s sign. There is no pericholecystic fluid. There are no gallstones. Common Bile Duct (C.B.D.): The common bile duct measures 5 mm. Pancreas: There is nonvisualization of the pancreas.. Right Kidney: Normal size of the right kidney. The right kidney measures 11.0 cm. Normal renal cortex. The right cortex measures 1.4 cm. There is no demonstrated renal mass or cyst. There is mild hydronephrosis of the right kidney. US/Gallbladder IMPRESSION: 1. Small amount of ascites. 2. Severe gallbladder wall thickening likely from ascites. 3. Mild right hydronephrosis as seen on CT. Electronically Signed: Osmin Ellis MD at 19:18 EST ,
--- NOTE | 2023-10-07 16:08 | CASEMGMT ---
Social Work SW met with pt to complete social determinate of health screening. Pt unable to stay awake to speak with SW. SW will continue to attempt to meet with pt. MIRIAM Larson
[2023-10-07 16:31] LABS: Appearance/Body Fluid CLEAR; Auto B Fluid Analyzer BKGD Ct COUNTS W/IN LIMITS (W/IN LIMITS); Color/Body Fluid YELLOW; Lymphocytes 39 %; Macrophages 41 %; Mesothelial Cells 5 %; Monocytes 1 %; Neutrophil (Segs) 14 %; Source- Body Fluid ASCITES FLUID
[2023-10-07 16:32] LABS: Body Fluid QC Type(s) BF1Q; Red Cell Count/Body Fluid 177 /mm3
[2023-10-08 03:18] VITALS: BP 104/52; PULSE 47; RESP 16; TEMP 36.3; O2SAT 99
[2023-10-08] MEDS: Lactulose 20 GM/30 ML UDC PO (05:31)
[2023-10-08 06:23] LABS: Glucose, Body Fluid 130 mg/dL (40-70); LDH,Body Fluid 53 Units/L (Not Establ.)
[2023-10-08 07:00] LABS: Absolute Lymphocyte Count 2.88 X10^3/uL (0.83-4.51); Absolute Neutrophil Count 5.8 X10^3/uL (2.0-7.7); Eosinophil# 0.33 X10^3/uL; Eosinophils% 3.2 % (0-5); Hematocrit 32.5 % (37-47); Hemoglobin 9.6 g/dL (12.0-15.0); Lymphocyte # 2.88 X10^3/ul (0.83-4.51); Lymphocyte % 27.9 % (19-41); Mean Corp Hgb Conc 29.5 g/dL (32-36); Mean Corpuscular Hgb 22.8 pg (27.0-32.0); Mean Corpuscular Volume 77.2 fL (81-99); Monocyte# 1.14 X10^3/uL; NRBC Flagged by Analyzer 0 % (0-5); Neutrophil # 5.84 X10^3/uL (2.7-7.7); Neutrophil % 56.5 % (47-70); POSITIVE MORPHOLOGY YES; Platelet Count 115 K/mm3 (150-450); RBC Distribution Width CV 22.8 % (11.6-14.6); RBC Distribution Width SD 63.6 fl (35.1-43.9); Red Blood Count 4.21 M/mm3 (4.2-5.4); White Blood Count 10.3 K/mm3 (4.4-11.0)
[2023-10-08 07:08] LABS: Differential Indicated SCAN CRITERIA MET
--- NOTE | 2023-10-08 07:48 | PN.HOSP_ITS ---
Reason for Visit Reason for Visit: Diagnoses Alcoholic hepatitis with ascites (10/07/23) Unspecified cirrhosis of liver (10/07/23) Other ascites (10/07/23) Subjective Subjective Seen back to baseline. Objective Data Objective Data Vital Signs: Vital Signs Temp Pulse Resp BP Pulse Ox O2 Del Method 97.3 F L 47 L 16 104/52 L 99 Room Air 10/08/23 03:18 10/08/23 03:18 10/08/23 03:18 10/08/23 03:18 10/08/23 03:18 10/08/23 03:18 Oxygen Delivery Method Room Air Weight: 91.3 kg Body Mass Index (BMI) 36.8 Intake & Output: Intake and Output for Last 24 Hours 10/06/23 10/07/23 10/08/23 23:59 23:59 23:59 Intake Total 1050 / 1050 150 / 150 Output Total 2550 / 2550 Balance 1050 / 1050 -2400 / -2400 Lab / Micro Data 10/08/23 06:36 10/08/23 06:36 Labs: Laboratory Results - last 24 hr 10/07/23 : Fluid Source ASCITES FLUID, Fluid Color YELLOW, Fluid Appearance CLEAR, Fluid WBC 0.211, Fluid RBC 177, Fluid Tot Cell Count 0.276 H, Fld Polynuclear WBCs # 0.014, Fld Polynuclear WBCs % 6.7, Fluid Mononuclear WBCs 0.197, Fld Mononuclear WBCs % 93.3, Fluid Neutrophils 14, Fluid Lymphocytes 39, Fluid Monocytes 1, Fluid Macrophages 41, Fld Mesothelial Cells 5, Fl Pathologist Comment May follow, Fluid Glucose 130 H, Fluid Total Protein 1.0, Fluid LDH 53, Fluid Comment 2 SEE COMMENT 10/08/23 06:36: WBC 10.3, RBC 4.21, Hgb 9.6 L, Hct 32.5 L, MCV 77.2 L, MCH 22.8 L, MCHC 29.5 L, RDW Std Deviation 63.6 H, RDW Coeff of Katalina 22.8 H, Plt Count 115 L, Immature Gran % (Auto) 0.400, Neut % (Auto) 56.5, Lymph % (Auto) 27.9, [place] % (Auto) 11.0 H, Eos % (Auto) 3.2, Baso % (Auto) 1.0, Absolute Neuts (auto) 5.8, Absolute Lymphs (auto) 2.88, Nucleated RBC % 0 Radiography Diagnostic Testing: Radiology Impression Paracentesis Ultrasound 10/07/23 06:00 IMPRESSION: Ultrasound guided paracentesis. Electronically Signed: Isidro Burnett MD at 14:44 EST , Gallbladder Ultrasound 10/07/23 15:27 IMPRESSION: 1. Small amount of ascites. 2. Severe gallbladder wall thickening likely from ascites. 3. Mild right hydronephrosis as seen on CT. Electronically Signed: Osmin Ellis MD at 19:18 EST , Physical Exam Narrative GENERAL: cooperative HEENT: Atraumatic; normocephalic EYES; Anicteric, Normal Conjunctiva NECK; supple, normal thyroid, RESPIRATORY: Diminished to auscultation CARDIOVASCULAR: Regular S1 S2, GI: Abdomen dull to percussion : No Renal angle tenderness; EXTREMITIES: No edema, no clubbing, MUSCULOSKELETAL: no muscle wasting NEURO: Awake; no lateralizing signs. SKIN: No Rash PSYCH; Flat affect Assessment & Plan Assessment/Plan (1) Cirrhosis of liver: QUALIFIERS: Ascites presence: with ascites Hepatic cirrhosis type: unspecified hepatic cirrhosis Qualified Code(s): K74.60 - Unspecified cirrhosis of liver; R18.8 - Other ascites (2) Ascites: QUALIFIERS: Ascites type: due to alcoholic hepatitis Qualified Code(s): K70.11 - Alcoholic hepatitis with ascites PLAN: Plan Patient is a 47-year-old lady with history of alcoholic liver cirrhosis who presented with abdominal distention and pain. Patient was found to have massive ascites on CAT scan admitted to regular nursing floor for subsequent inpatient management 1. Massive ascites ? In the patient with alcoholic liver cirrhosis. Patient has been admitted to regular nursing floor plan is for patient to undergo diagnostic and therapeutic paracentesis ? 10/08/2023 A total of 2450 ml of jose manuel-colored fluid were removed from the peritoneal cavity 2. Distended gallbladder ? Right upper quadrant ultrasound ordered for subsequent evaluation Results; 1. Small amount of ascites. 2. Severe gallbladder wall thickening likely from ascites. 3. Mild right hydronephrosis as seen on CT. 3. Alcoholic cirrhosis of the liver ? Patient is followed by GI as outpatient. Currently on lactulose nadolol and spironolacto did continue 4. Anemia - Secondary to chronic disorder monitoring H&H and transfuse if patient becomes symptomatic or hemoglobin falls below 7. EGD 09.15.22?noting Grade I esophageal varices; severe portal HTN gastropathy. H.Pylori negative.? 5. COPD ? Currently not in exacerbation 6. Depression ? On aripiprazole and desvenlafaxine 7. Chronic alcohol dependence ? Patient admitted to occasionally alcohol use. Counseled on the need for cessation 8. Tobacco dependence - Counseled on cessation, offered nicotine patch for tobacco cravings 9. Class II obesity with BMI of 36.8 ? Complicating care weight loss advised 9. Thrombocytopenia ? Secondary to cirrhosis of the liver monitoring with daily CBC with differential 10. Hypokalemia - corrected per protocol repeat labs ordered for monitoring 11. DVT prophylaxis ? SCDs only Time spent in the patient's overall evaluation,decision-making process, review of diagnostic data, adjustment of management, discussion with other providers, nursing nursing and ancillary staff involved in patient's care documentation, 35 Minutes Charges/Coding Visit Charges Inpatient E&M: 65097 Subs Hosp L2
[2023-10-08 08:17] LABS: Anisocytosis 1+
[2023-10-08 08:43] VITALS: BP 121/65; PULSE 71; RESP 16; TEMP 36.8; O2SAT 98
[2023-10-08] MEDS: ARIPiprazole 10 MG Tablet 30 MG PO (08:47)
[2023-10-08] MEDS: Spironolactone 50 MG Tablet 75 MG PO (08:48)
[2023-10-08] MEDS: Nadolol 20 MG Tablet PO (08:48)
[2023-10-08] MEDS: Venlafaxine XR 75 MG Capsule PO (08:48)
[2023-10-08] MEDS: Topiramate 100 MG Tablet PO (08:49)
[2023-10-08] MEDS: Ceftriaxone 1 GM/50 ML BAG IV (08:51)
[2023-10-08] MEDS: Gabapentin 100 MG Capsule PO (08:51)
[2023-10-08] MEDS: 0.9% Saline Lock 10 ML Syringe IV (08:51)
[2023-10-08 09:03] LABS: ALB/GLOB Ratio 0.5 RATIO (0.9-2.4); AST(SGOT) 128 U/L (15-37); Alanine Aminotransfer ALT/SGPT 64 U/L (13-56); Albumin, Serum 2.3 g/dL (3.2-5.0); Alkaline Phosphatase 139 U/L (45-117); Anion Gap 5 (5-15); BUN 5 mg/dL (7-18); BUN/Creat Ratio 5.1 RATIO (10-20); Calcium,Total 8.4 mg/dL (8.5-10.1); Chloride 111 mmol/L (98-107); Creatinine, Serum 0.98 mg/dL (0.55-1.02); EST Glomerular Filtration Rate 64 mL/min (>60); Est Glom Filt Rate - Afr Amer 77 mL/min (>60); Estimated Creatinine Clearance 72.18 ml/min; Globulin 4.5 g/dL (2.2-4.2); Glucose 106 mg/dL (74-106); Magnesium 1.7 mg/dL (1.6-2.6); Phosphorus 2.3 mg/dL (2.5-4.9); Potassium 4.1 mmol/L (3.5-5.1); Protein, Total 6.8 g/dL (6.4-8.2); Sodium Level 138 mmol/L (136-145)
--- NOTE | 2023-10-08 09:37 | DS.PCM_ITS ---
Providers Date of Admission: 10/07/23 Date of Discharge: 10/08/23 Primary Care Physician: Dr. Ang Acosta MD Reason For Visit: ASCITES Diagnosis Discharge Diagnosis (1) Cirrhosis of liver: Status: Acute Code(s): K74.60 - Unspecified cirrhosis of liver Qualifiers: Hepatic cirrhosis type: unspecified hepatic cirrhosis Ascites presence: with ascites Qualified Code(s): K74.60 - Unspecified cirrhosis of liver; R18.8 - Other ascites (2) Ascites: Status: Chronic Code(s): R18.8 - Other ascites Qualifiers: Ascites type: due to alcoholic hepatitis Qualified Code(s): K70.11 - Alcoholic hepatitis with ascites Plan Patient is a 47-year-old lady with history of alcoholic liver cirrhosis who presented with abdominal distention and pain. Patient was found to have massive ascites on CAT scan admitted to regular nursing floor for subsequent inpatient management 1. Massive ascites ? In the patient with alcoholic liver cirrhosis. Patient has been admitted to regular nursing floor plan is for patient to undergo diagnostic and therapeutic paracentesis ? 10/08/2023 A total of 2450 ml of jose manuel-colored fluid were removed from the peritoneal cavity 2. Distended gallbladder ? Right upper quadrant ultrasound ordered for subsequent evaluation Results; 1. Small amount of ascites. 2. Severe gallbladder wall thickening likely from ascites. 3. Mild right hydronephrosis as seen on CT. 3. Alcoholic cirrhosis of the liver ? Patient is followed by GI as outpatient. Currently on lactulose nadolol and spironolacto did continue 4. Anemia - Secondary to chronic disorder monitoring H&H and transfuse if patient becomes symptomatic or hemoglobin falls below 7. EGD 09.15.22?noting Grade I esophageal varices; severe portal HTN gastropathy. H.Pylori negative.? 5. COPD ? Currently not in exacerbation 6. Depression ? On aripiprazole and desvenlafaxine 7. Chronic alcohol dependence ? Patient admitted to occasionally alcohol use. Counseled on the need for cessation 8. Tobacco dependence - Counseled on cessation, offered nicotine patch for tobacco cravings 9. Class II obesity with BMI of 36.8 ? Complicating care weight loss advised 9. Thrombocytopenia ? Secondary to cirrhosis of the liver monitoring with daily CBC with differential 10. Hypokalemia - corrected per protocol repeat labs ordered for monitoring 11. DVT prophylaxis ? SCDs only Time spent in the patient's overall evaluation,decision-making process, review of diagnostic data, adjustment of management, discussion with other providers, nursing nursing and ancillary staff involved in patient's care documentation, 35 Minutes Medications at Discharge Home Medications desvenlafaxine 100 mg tablet,extended release 24 hour 100 mg PO DAILY NERVE PAIN 02/20/19 Vitamin D3 1,250 mcg OTHER QWEEK SUPPLEMENT 05/20/22 topiramate 100 mg tablet 100 mg PO BID PER GASTRO 05/20/22 trazodone 100 mg tablet 100 mg PO QHS SLEEP #1 TAB 05/21/22 aripiprazole 30 mg tablet 30 mg PO DAILY 09/14/22 gabapentin 100 mg capsule 100 mg PO Q12H 07/20/23 furosemide 20 mg tablet (Lasix) 20 mg PO DAILY #90 tabs 10/07/23 lactulose 20 gram/30 mL oral solution 20 g (30 mL) PO TID 30 days #2,880 mL 10/07/23 nadolol 20 mg tablet 20 mg PO DAILY 30 days #30 tabs 10/07/23 spironolactone 50 mg tablet 75 mg (1.5 x 50 mg) PO DAILY 30 days #45 tabs 10/07/23 Physical Exam Narrative GENERAL: cooperative HEENT: Atraumatic; normocephalic EYES; Anicteric, Normal Conjunctiva NECK; supple, normal thyroid, RESPIRATORY: Diminished to auscultation CARDIOVASCULAR: Regular S1 S2, GI: Abdomen dull to percussion : No Renal angle tenderness; EXTREMITIES: No edema, no clubbing, MUSCULOSKELETAL: no muscle wasting NEURO: Awake; no lateralizing signs. SKIN: No Rash PSYCH; Flat affect Weight / BMI Weight Weight: 91.3 kg Body Mass Index (BMI) 36.8 ABG / Lab / Microbiology Data 10/08/23 06:36 10/08/23 06:36 Laboratory: Laboratory Results - last 24 hr 10/07/23 : Fluid Source ASCITES FLUID, Fluid Color YELLOW, Fluid Appearance CLEAR, Fluid WBC 0.211, Fluid RBC 177, Fluid Tot Cell Count 0.276 H, Fld Polynuclear WBCs # 0.014, Fld Polynuclear WBCs % 6.7, Fluid Mononuclear WBCs 0.197, Fld Mononuclear WBCs % 93.3, Fluid Neutrophils 14, Fluid Lymphocytes 39, Fluid Monocytes 1, Fluid Macrophages 41, Fld Mesothelial Cells 5, Fl Pathologist Comment May follow, Fluid Glucose 130 H, Fluid Total Protein 1.0, Fluid LDH 53, Fluid Comment 2 SEE COMMENT 10/08/23 06:36: WBC 10.3, RBC 4.21, Hgb 9.6 L, Hct 32.5 L, MCV 77.2 L, MCH 22.8 L, MCHC 29.5 L, RDW Std Deviation 63.6 H, RDW Coeff of Katalina 22.8 H, Plt Count 115 L, Immature Gran % (Auto) 0.400, Neut % (Auto) 56.5, Lymph % (Auto) 27.9, Esmeralda % (Auto) 11.0 H, Eos % (Auto) 3.2, Baso % (Auto) 1.0, Absolute Neuts (auto) 5.8, Absolute Lymphs (auto) 2.88, Nucleated RBC % 0, Anisocytosis 1+, Sodium 138, Potassium 4.1, Chloride 111 H, Carbon Dioxide 22.0, Anion Gap 5, BUN 5 L, Creatinine 0.98, Estim Creat Clear Calc 72.18, Est GFR (MDRD) Af Amer 77, Est GFR (MDRD) Non-Af 64, BUN/Creatinine Ratio 5.1 L, Glucose 106, Calcium 8.4 L, Phosphorus 2.3 L, Magnesium 1.7, Total Bilirubin 1.90 H, AST 128 H, ALT 64 H, Alkaline Phosphatase 139 H, Total Protein 6.8, Albumin 2.3 L, Globulin 4.5 H, Albumin/Globulin Ratio 0.5 L Radiography Diagnostic Testing: Radiology Impression Paracentesis Ultrasound 10/07/23 06:00 IMPRESSION: Ultrasound guided paracentesis. Electronically Signed: Isidro Burnett MD at 14:44 EST , Gallbladder Ultrasound 10/07/23 15:27 IMPRESSION: 1. Small amount of ascites. 2. Severe gallbladder wall thickening likely from ascites. 3. Mild right hydronephrosis as seen on CT. Electronically Signed: Osmin Ellis MD at 19:18 EST , D/C Instructions Discharge Diet: No restrictions Discharge Activity: Return to Normal Activity Call your doctor if you observe: Fever of 101 or Higher, Shortness of breath, Fainting spells and Chest pain Meaningful Use Info Meaningful Use Diagnoses (Choose all that apply): None applicable Discharge Plan Admission Admit Date/Time: 10/07/23 14:16 Attending Provider: Oscar Pantoja Primary Care Provider: Ang Acosta Consulting Providers: Elena Hoff Discharge Orders/Prescriptions Prescriptions: New furosemide [Lasix] 20 mg tablet 20 mg PO DAILY Qty: 90 0RF Continued desvenlafaxine 100 mg tablet extended release 24hr 100 mg PO DAILY Vitamin D3 1,250 mcg OTHER QWEEK Rx Instructions: TAKES ON MODAY BY MOUTH topiramate 100 mg tablet 100 mg PO BID Rx Instructions: BEFORE MEALS trazodone 100 mg tablet 100 mg PO QHS Qty: 1 0RF aripiprazole 30 mg tablet 30 mg PO DAILY nadolol 20 mg tablet 20 mg PO DAILY 30 Days Qty: 30 2RF Rx Instructions: Hold for heart less than 50 or systolic blood pressure less than 100 mmHg. spironolactone 50 mg tablet 75 mg PO DAILY 30 Days Qty: 45 2RF lactulose 20 gram/30 mL solution 20 g PO TID 30 Days Qty: 2880 2RF Rx Instructions: And adjust the frequency to have him goal of 3 bowel movements per day gabapentin 100 mg capsule 100 mg PO Q12H Patient Comments: Take 1 capsule by mouth twice daily pt taking as needed. Discontinued prednisone 20 mg tablet 20 mg PO DAILY Qty: 5 0RF Patient Comments: pt states has not been taking Referrals / Follow Up: Ang Acosta MD [Primary Care Provider] - Within 1 Week Son Adams MD [Med Staff - Active Staff] - Within 2 Weeks Disposition Disposition (needs filled in before D/C Order can be placed): Home, Self Care Charges/Coding Visit Charges Inpatient E&M: 17676 Disch Hosp >30min
--- NOTE | 2023-10-08 10:12 | CASEMGMT ---
RN CM Assessment: Face to Face with pt for initial transition planning/care coordination assessment. RN CM introduced self and role at [facility], pt voices understanding and consents to assessment. Pt is A&O x3 although did not know the president. Pt appeared skeptical of this RN CM. She states the address is not her current one or her sig other's but she was not willing to provide it. Pt did not answer some assessment questions and repeatedly stated she didn't understand why this RN CM was in her room after multiple explanations. Care providers, pharmacy, and demographics discussed, pt would not provide for updates. Admitting Dx: ascites PCP:Dave Specialists: Friend, GI Preferred Pharmacy: [facility] Retail Insurance: [facility] Prescription Benefit: yes LNOK: Vannesa Bonilla, dtr; Osmin Alfred, boyfriend. Pt states he is not her sig other. Living Arrangements: Pt lives in a two story home with quite a few steps to enter. Pt did not want to share who she lived with. Pt reports she is I in ADL's and denies safety concerns at home. Transportation: Pt does not drive. She reports she uses [facility] for transportation. DME:Denies HHC/SNF: Denies hx of Pt states no concerns with going home at time of dc. Pt states no further concerns/needs. CM to follow. Advised pt to ask CM if any further question/concerns/needs arise, voices understanding. Pt Goal: Home Plan: Home
--- NOTE | 2023-10-08 11:31 | NURSING ---
confirmation for provide a ride: [id number]. seed cone picker time is between now and 2 hours, via [employer]. They will phone pt cell phone number and/or ms3 floor number when they arrive.
[2023-10-11 09:28] LABS: Pathologist Comment/Body Fluid Reviewed
--- OUTSIDE RECORDS SUMMARY | 2023-10-12 09:25 | XMS RPT_ITS | CCD ---
Author Name Unknown Address [address] [place] [address] Organization [facility] Care Team Providers Care Supervisory Examiner Name Role Phone GELA AGUDELO Unavailable Unavailable [...] sources) Aspirin; Translations: [ASPIRIN] Drug Allergy 5 [facility] Repository (20 sources) buPROPion; Translations: [BUPROPION HCL] Drug Allergy 3 Other: See Comments [facility] Rep[facility] (20 sources) Codeine; Translations: [CODEINE] Drug Allergy 5 Rash, Hives [facility] (20 sources) buPROPion; Translations: [BUPROPION] Drug Allergy 3 Other: See Comments [facility] (20 sources) predniSONE; Translations: [PREDNISONE] Drug Allergy 9 Rash [facility] Work Phone: (3 sources) Prednisone Propensity to adverse reactions 9 Rash [facility] Medications Current Medications Medication Drug Class(es) Dates [...] tablet 650 mg 20 ml albumin human, fci 250 mg/ml injection (2 sources) Human Serum Albumin Start: 09-10-2023 End: 09-10-2023 albumin human 25 % IV solution 50 g [id number] 200 actuat albuterol 0.09 mg/actuat metered dose [...] 38.38 kg/m2 Lenny Macdonald MD Work Phone: [facility] 09-15-2023 12:01-0500 Body weight 95.21 kg Lenny Macdonald MD Work Phone: [facility] 09-15-2023 11:39-0500 Body height 157.5 cm Lenny Macdonald MD Work Phone: [facility] 09-15-2023 06:02-0500 Body temperature 97.3 [degF] Lenny Macdonald MD Work Phone: [facility] 09-15-2023 06:02-0500 Diastolic blood pressure 53 mm[Hg] Lenny Macdonald MD Work Phone: [facility] 09-15-2023 06:02-0500 Heart rate 68 /min Lenny Macdonald MD Work Phone: [facility] 09-15-2023 06:02-0500 Respiratory rate 16 /min Lenny Macdonald MD Work Phone: [facility] 09-15-2023 06:02-0500 SaO2% (BldA) [Mass fraction] 98 % Lenny Macdonald MD Work Phone: [facility] 09-15-2023 06:02-0500 Systolic blood pressure 91 mm[Hg] Lenny Macdonald MD Work Phone: [facility] 12-02-2022 12:49-0500 Body temperature 98.29 [degF] Joselito GARCIA Work Phone: [facility] 12-02-2022 12:49-0500 Body weight 94.62 kg Krislyn Aberegg PA Work Phone: [facility] 12-02-2022 12:49-0500 Diastolic blood pressure 78 mm[Hg] Krislyn Aberegg PA Work Phone: [facility] 12-02-2022 12:49-0500 Heart rate 64 /min Krislyn Aberegg PA Work Phone: [facility] 12-02-2022 12:49-0500 Respiratory rate 16 /min Krislyn Aberegg PA Work Phone: [facility] 12-02-2022 12:49-0500 SaO2% (BldA) [Mass fraction] 98 % Krislyn Aberegg PA Work Phone: [facility] 12-02-2022 12:49-0500 Systolic blood pressure 104 mm[Hg] Krislyn Aberegg PA Work Phone: [facility] 09-29-2022 17:56-0500 Body temperature 98.2 [degF] Ananda Prabhakar MD Work Phone: [facility] 09-29-2022 17:56-0500 Body weight 94.98 kg Ananda Prabhakar MD Work Phone: [facility] 09-29-2022 17:56-0500 Diastolic blood pressure 82 mm[Hg] Ananda Prabhakar MD Work Phone: [facility] 09-29-2022 17:56-0500 Heart rate 67 /min Ananda Prabhakar MD Work Phone: [facility] 09-29-2022 17:56-0500 Respiratory rate 20 /min Ananda Prabhakar MD Work Phone: [facility] 09-29-2022 17:56-0500 SaO2% (BldA) [Mass fraction] 99 % Ananda Prabhakar MD Work Phone: [facility] 09-29-2022 17:56-0500 Systolic blood pressure 122 mm[Hg] Ananda Prabhakar MD Work Phone: [facility] 05-10-2022 15:42-0400 Diastolic blood pressure 96 mm[Hg] Dacia Leo MD Work Phone: [facility] 05-10-2022 15:42-0400 Systolic blood pressure 148 mm[Hg] Dacia Leo MD Work Phone: [facility] 05-10-2022 15:39-0400 Body weight 89.18 kg Dacia Leo MD Work Phone: [facility] 05-10-2022 15:39-0400 Heart rate 92 /min Dacia Leo MD Work Phone: [facility] 05-10-2022 15:39-0400 Respiratory rate 20 /min Dacia Leo MD Work Phone: [facility] 05-09-2022 14:43-0400 Body temperature 98.6 [degF] Blanca Dawson APRN.RN INTERNATIONAL Work Phone: [facility] 05-09-2022 14:43-0400 Body weight 91.54 kg Blanca Dawson APRN.RN INTERNATIONAL Work Phone: [facility] 05-09-2022 14:43-0400 Diastolic blood pressure 74 mm[Hg] Blanca Dawson APRN.RN INTERNATIONAL Work Phone: [facility] 05-09-2022 14:43-0400 Heart rate 85 /min Blanca Dawson APRN.RN INTERNATIONAL Work Phone: [facility] 05-09-2022 14:43-0400 Respiratory rate 21 /min Blanca Dawson APRN.RN INTERNATIONAL Work Phone: [facility] 05-09-2022 14:43-0400 SaO2% (BldA) [Mass fraction] 99 % Blanca Dawson APRN.RN INTERNATIONAL Work Phone: [facility] 05-09-2022 14:43-0400 Systolic blood pressure 126 mm[Hg] Blanca Dawson APRN.RN INTERNATIONAL Work Phone: [facility] 03-11-2022 14:26-0400 Body weight 92.08 kg Tresa Tannhof GROUP INSURANCE SPECIALIST.RN INTERNATIONAL Work Phone: [facility] 03-11-2022 14:26-0400 Diastolic blood pressure 64 mm[Hg] Tresa Tannhof GROUP INSURANCE SPECIALIST.RN INTERNATIONAL Work Phone: [facility] 03-11-2022 14:26-0400 Heart rate 62 /min Tresa Tannhof GROUP INSURANCE SPECIALIST.RN INTERNATIONAL Work Phone: [facility] 03-11-2022 14:26-0400 Respiratory rate 14 /min Tresa Tannhof GROUP INSURANCE SPECIALIST.RN INTERNATIONAL Work Phone: [facility] 03-11-2022 14:26-0400 Systolic blood pressure 106 mm[Hg] Tresa Tannhof GROUP INSURANCE SPECIALIST.RN INTERNATIONAL Work Phone: [facility] 01-11-2022 13:23-0400 Body temperature 97.81 [degF] Becca Enmanuel GROUP INSURANCE SPECIALIST.RN INTERNATIONAL Work Phone: [facility] 01-11-2022 13:23-0400 Body weight 96.34 kg Becca Enmanuel GROUP INSURANCE SPECIALIST.RN INTERNATIONAL Work Phone: [facility] 01-11-2022 13:23-0400 Diastolic blood pressure 62 mm[Hg] Becca Enmanuel GROUP INSURANCE SPECIALIST.RN INTERNATIONAL Work Phone: [facility] 01-11-2022 13:23-0400 Heart rate 65 /min Becca Enmanuel GROUP INSURANCE SPECIALIST.RN INTERNATIONAL Work Phone: [facility] 01-11-2022 13:23-0400 Respiratory rate 21 /min Becca Enmanuel GROUP INSURANCE SPECIALIST.RN INTERNATIONAL Work Phone: [facility] 01-11-2022 13:23-0400 SaO2% (BldA) [Mass fraction] 99 % Becca Enmanuel GROUP INSURANCE SPECIALIST.RN INTERNATIONAL Work Phone: [facility] 01-11-2022 13:23-0400 Systolic blood pressure 102 mm[Hg] Becca Enmanuel GROUP INSURANCE SPECIALIST.RN INTERNATIONAL Work Phone: [facility] 08-04-2018 12:36-0500 Body surface area [facility] 12:11-0500 Body surface area Derived from formula [facility] Encounters Encounter Date Encounter Type Care Provider Facility Start: 09-16-2023 Telephone encounter Emperatriz Chacon [facility] Clinical Communication Start: 09-09-2023 End: 09-15-2023 Evaluation and management of inpatient [facility] Start: 09-09-2023 End: 09-15-2023 Evaluation and management of inpatient Lenny Macdonald MD Work Phone: [facility] Respiratory Unit 7W Procedures Date [...] or older (1 - 1-dose 60+ series) [facility] Start: 07-20-2033 DTaP/Tdap/Td Vaccines (2 - Td or Tdap) DTaP/Tdap/Td Vaccines (2 - Td or Tdap) [facility] Start: 07-20-2033 Urine microalbumin profile DTaP,Tdap,Td Vaccine (2 - Td or Tdap) [facility] Start: 06-24-2024 DIABETES SCREEN DIABETES SCREEN [facility] Start: 06-24-2024 Diabetes Screening Diabetes Screening [facility] Start: 02-21-2024 HPV TESTING HPV TESTING [facility] Start: 02-21-2024 PAP TESTING PAP TESTING [facility] Start: 01-25-2024 Mammography [facility] Start: 2023 Zoster Vaccines (1 of 2) Zoster Vaccines (1 of 2) [facility] Start: 05-27-2023 Influenza vaccination [facility] Start: 12-02-2022 End: 02-01-2023 Bacteria identified in Wound by Culture WOUND CULTURE AND GRAM STAIN Microbiology Routine Skin infection Expected: 12/02/2022, Expires: 02/01/2023 [facility] Work Phone: Immunizations Immunization Date Immunization Notes Care Provider Fa [facility] 07-20-2023 tetanus toxoid, redu viridiana diphtheria toxoid, and acellular pertussis vaccine, adsorbed Lenny Macdonald MD Work Phone: [facility] 08-06-2018 influenza, injectabl e, quadrivalent, preservative free Becca Enmanuel GROUP INSURANCE SPECIALIST.RN INTERNATIONAL Work Phone: [facility] 08-06-2018 influenza virus vaccine, unspecified formulation Screen Wstr [facility] 08-05-2018 pneumococcal polysaccharide vaccine, 23 valent Becca Enmanuel GROUP INSURANCE SPECIALIST.RN INTERNATIONAL Work Phone: [facility] NEGATED: Highlighted row has not occurred!09-11-2023 Influenza, injectable, Madin [place] Canine Kidney, preservative free, quadrivalent Lenny Macdonald MD Work Phone: [facility] Payers Date Payer Category Payer Medicaid [id number] 2015 Medicaid [id number] 2015 Medicaid [facility] MEDIC [facility] MEDICAID [id number] 2015-Present [phone] [address] [place] [address] Medicaid [id number] 2015 Medicaid [id number] Social History Date Type Detail Facility Start: 04-14-2017 End: 05-09-2022 Tobacco smoking status NHIS Smokes tobacco daily [facility] Work Phone: History of tobacco use Cigarette Smoker [facility] Work Phone: Start: 01-11-2022 End: 12-02-2022 Alcohol intake Current drinker of alcohol (finding) [facility] Start: 02-28-2020 History SDOH Alcohol Frequency 3 [facility] Start: 12-10-2011 History SDOH Alcohol Comment occasionally mixed drink [facility] Start: 04-14-2017 End: 05-09-2022 Tobacco Comment maybe more then 1 pack daily [facility] Start: 1975 Sex Assigned At Not on file [facility] Start: 01-01-2022 End: 05-26-2022 Exposure to SARS-CoV-2 (event) Not sure [facility] Work Phone: Start: 04-14-2017 End: 09-10-2023 Cigarettes smoked current (pack per day) - Reported 1 [facility] Work Phone: Start: 04-14-2017 End: 05-09-2022 Tobacco use and exposure Smokeless tobacco non-user [facility] Start: 04-30-2022 End: 05-10-2022 Exposure to SARS-CoV-2 (event) Yes [facility] Start: 02-28-2020 End: 09-10-2023 Alcohol Use Disorder Identification Test - Consumption [AUDIT-C] [facility] Work Phone: How often to you hav e a drink containing alcohol? 2-4 times a month [facility] Work Phone: Average Number of Drinks Not on file [facility] consumption unknown [facility] Within the last year , have you been afraid of your partner or ex-partner? No [facility] How often to you hav e a drink containing alcohol? Never [facility] Clinical Notes 01-11-2022 to 09-20-2023 Telephone Encounter - Emperatriz Chacon LPN - 09/20/2023 9:58 AM ESTTelephone Encounter - Emperatriz Chacon LPN - 09/20/2023 9:[address] - 09/15/2023 12:12 PM EST Note Date & Type Note Facility 09-20-2023 Telephone encounter Note Unable to contact patient X2 [facility] 09-20-2023 Miscellaneous Notes Unable to contact patient X2 S: Patient admitted to: [facility] 09/09/23 B: Discharged on : 09/15/23 A: Hospital follow up call initiated to discuss any medication changes, follow up appointments and discharge instructions: Small bowel obstruction R: No contact x 1 at : [phone] documented in this encounter [facility] 09-16-2023 Telephone encounter Note S: Patient admitted to: [facility] 09/09/23 B: Discharged on : 09/15/23 A: Hospital follow up call initiated to discuss any medication changes, follow up appointments and discharge instructions: Small bowel obstruction R: No contact x 1 at : [phone] [facility] 09-15-2023 Note Formatting of this [...] service. SW placed call to [facility] transport [phone]. Transport arranged for pickling drum operator at [address] between 4:12-6:12pm. They will call the unit 15 minutes prior to their arrival . Ref # [id number]. meat counter worker updated patients bedside RN, who will update the patient. [facility] 09-15-2023 Note Formatting of this [...] their uber/lyft service. [facility] [employer] [facility] [phone]. Transport arranged for pickling drum operator at [address] between 4:12-6:12pm. They will call the unit 15 minutes prior to their arrival . Ref # [id number]. meat counter worker updated patients bedside RN, who will update the patient. [facility] 09-15-2023 Miscellaneous Notes Social work follow up on discharge. SW notified by patients bedside RN patient needs assist with transport to home. SHELL spoke to patient to confirm address on file is correct. She reports she typically will use her [facility] johnny for transport and uses their uber/lyft service. SW placed call to [facility] transport [phone]. Transport arranged for pickling drum operator at [address] between 4:12-6:12pm. They will call the unit 15 minutes prior to their arrival . Ref # [id number]. meat counter worker updated patients bedside RN, who will [...] Limits Permission given to speak with patient rental sales representative/caregiver as indicated: Yes Confirmation of Payer with patient/family: Yes Payer Name: [employer] Medicaid [place]: No Confirmation of Primary Care Physician: Confirmed [...] TCC will follow. documented in this encounter [facility] 09-15-2023 Note Discharge Summary Carolina Bonilla : [...] SIGNIFICANT DIAGNOSTIC STUDIES: US guided abdominal paracentesis [[id number]] Collected: 09/14/231134 Order Status: Completed Updated: 09/14/231136 [...] 11:36 AM EST US guided abdominal paracentesis [[id number]] Collected: 09/10/23853 Order Status: Completed Updated: 09/10/23854 Narrative: Patient Name: CAROLINA BONILLA : 1975 Exam Date/Time: 09/10/2023 08:29 Proced (more content not included)... [facility] 09-15-2023 History of Presen t illness Narrative [...] (S/p paracentesis 09/14 with 1.7L removed) Ascites Cdl Bulk Driver Strength: Not Performed Nutrition Assessment: 47yo F [...] On: Kcal/kg Weight Used for Energy Requirements: [place] Weight for Energy Calculation (kg): 50 kg Total Energy Requirements (kcals/day): 27-32 kcal/kg = 8112-9778 kcal/day Weight Used for Protein Requirements: [place] Weight in Kg Used for Protein Requirements: [...] lb) (stated) % Weight Change (Calculated): 5 [place] Body Weight (lbs) (Calculated): 110 lbs [place] Body Weight (Kg) (Calculated): 50 kg % [place] Body Weight (Calculated): 190.8 % BMI (kg/m2) [...] Continue current diet Latha Lester RD Contact: *[phone] Images from the original note were not [...] 1,000 mL enema, 1 enema, Rectal, TID uzgyzlmf-uaitzpmmpc-lvwwgydmr, , Topical, TID pantoprazole (ProtoNix) 40 mg [...] Saima Tan MD Division of Hospitalist Medicine [facility] Images from the original note were not [...] 1,000 mL enema, 1 enema, Rectal, TID rdamatgr-twvlprnslm-kmtklkeox, , Topical, TID pantoprazole (ProtoNix) 40 mg [...] Saima Tan MD Division of Hospitalist Medicine [facility] Images from the original note were not [...] Saima Tan MD Division of Hospitalist Medicine [facility] Images from the original note were not [...] Surgery PGY-1 09/12/23 4:53 PM Pager # [phone] This note may have been dictated using [employer] Medical Practice Edition 2.6 and/or Bridge Voice Recognition Feature. The document was proofread; however, unrecognized voice recognition payroll coordinator errors may be present. Associated attestation - [...] FACS Division of Trauma Department of Surgery [facility] ~~~~~~~~~~~~~~~~~~~~~~~~~~~~~~~~ ~~~~~~~~~~~~~~~~~~~~~~~~~~~~~ This note may have been dictated using [employer] Medical Practice Edition 2.6 and/or Bridge Voice Recognition Feature. The document was proofread; however, unrecognized voice recognition payroll coordinator errors may be present. [facility] ADMISSION MEDICATION RECONCILIATION Date: 09/12/23 [facility] A Patient Name: Carolina Bonilla Allergies: [...] on last fill dates from patient's [facility]. Home medications to restart if there [...] muscle mass loss Fluid Accumulation: Mild Ascites Cdl Bulk Driver Strength: Not Performed Nutrition Assessment: 47yo F [...] On: Kcal/kg Weight Used for Energy Requirements: [place] Weight for Energy Calculation (kg): 50 kg Total Energy Requirements (kcals/day): 27-32 kcal/kg = 9629-6133 kcal/day Weight Used for Protein Requirements: [place] Weight in Kg Used for Protein Requirements: [...] 05/26/22 198#) % Weight Change (Calculated): 2.8 [place] Body Weight (lbs) (Calculated): 110 lbs [place] Body Weight (Kg) (Calculated): 50 kg % [place] Body Weight (Calculated): 186.9 % BMI (kg/m2) [...] soon to determine Latha Lester RD Contact: *[phone] Images from the original note were not included. Hospitalist Progress Note 09/12/2023 Subjective: Admit Date: 09/09/2023 PCP: No primary care provider on file. Room#: W7-446/W7-086 A Brief Hospital course: Patient is 47-year-old [...] Saima Tan MD Division of Hospitalist Medicine [employer] [facility] Images from the original note were not included. Hospitalist Progress Note 09/11/2023 Subjective: Admit Date: 09/09/2023 PCP: No primary care provider on file. Room#: W7-726/[facility]726 A Interval History: Patient is 47-year-old with [...] Judah Valentine MD Division of Hospitalist Medicine [facility] Nutrition rescreen completed. Patient is NPO/Clear liquid [...] to follow closely. documented in this encounter [facility] 09-15-2023 Hospital course Narrative Discharge Summary Carolina [...] SIGNIFICANT DIAGNOSTIC STUDIES: US guided abdominal paracentesis [[id number]] Collected: 09/14/23 1131 Order Status: Completed Updated: 09/14/231136 Narrative: Patient [...] 11:36 AM EST US guided abdominal paracentesis [[id number]] Collected: 09/10/23853 Order Status: Completed Updated: 09/10/23854 [...] AM EST CT abdomen pelvis w contrast [[id number]] Collected: 09/09/232018 Order Status: Completed Updated: 09/09/232028 [...] 8:28 PM EST XR chest 1 view [[id number]] Collected: 09/09/231846 Order Status: Completed Updated: 09/09/231848 Narrative: Patient Name: CAROLINA BONILLA : 1975 Located [facility]#: [id number] Exam Date/Time: 09/09/2023 18:44 Procedure: XR CHEST [...] Your Medications These medications were sent to [facility] [place] - [address] [place] [address] desvenlafaxine 100 MG 24 hr tablet doxepin 10 MG capsule traZODone 100 MG tablet DIET: Adult diet Regular ACTIVITY: No restriction. COMPLEXITY OF FOLLOW UP: [] Moderate Complexity: follow up within 7-14 calendar days (15019) [] Severe Complexity: follow up within 7 calendar days (68474) FOLLOW UP TESTING, PENDING RESULTS OR REFERRALS AT TRANSITIONAL CARE VISIT: [] Yes [] No PENDING STUDIES: DISPOSITION: Home FACILITY/HOME CARE AGENCY NAME: Follow up with Cristiana Strauss MD [address] [facility] [address] [facility] [id number] Schedule an appointment as soon as possible [...] 09/15/2023, 12:04 PM documented in this encounter [facility] 09-15-2023 Note Hospitalist Progress Note 09/15/2023 Subjective: [...] 1,000 mL enema, 1 enema, Rectal, TID fajakfjy-yuzaogsgkn-bcwrypjts, , Topical, TID pantoprazole (ProtoNix) 40 mg [...] Pedersen MD [facility] Division of Hospitalist Medicine [facility] 09-14-2023 Note Formatting of this n ote might be different from the original. Chart reviewed. Patient had paracentesis today with 1700 ml removed. Surgery is following patient for likely ileus -->no plans for intervention and recommend ADAT. Current discharge plan is home no needs once medically stable. [facility] 09-14-2023 Note Formatting of this n ote might be different from the original. Chart reviewed. Patient had paracentesis today with 1700 ml removed. Surgery is following patient for likely ileus -->no plans for intervention and recommend ADAT. Current discharge plan is home no needs once medically stable. [facility] 09-14-2023 Note Hospitalist Progress Note [...] 1,000 mL enema, 1 enema, Rectal, TID ijeffawm-jiadvjfwig-sdjkrsisu, , Topical, TID pantoprazole (ProtoNix) 40 mg [...] Pedersen MD [facility] Division of Hospitalist Medicine [facility] 09-14-2023 Note Formatting of this n ote might be different from the original. Patient to ultrasound department for paracentesis. History, medications and allergies reviewed. Samuel Pastor PA-C in to speak with patient. Informed consent obtained. 1700 mL clear yellow colored fluid removed. Patient tolerated procedure well. Bandaid applied to site. Patient discharged to [facility] 09-14-2023 Note Formatting of this n ote might be different from the original. Patient to ultrasound department for paracentesis. History, medications and allergies reviewed. Samuel Pastor PA-C in to speak with patient. Informed consent obtained. 1700 mL clear yellow colored fluid removed. Patient tolerated procedure well. Bandaid applied to site. Patient discharged to [facility] 09-13-2023 Note Hospitalist Progress Note 09/13/2023 Subjective: Admit Date: 09/09/2023 PCP: No primary care provider on file. Room#: W726/[facility] A Brief Hospital course: Patient is [...] Pedersen MD [facility] Division of Hospitalist Medicine [facility] 09-13-2023 Note Care Management Prog ress [...] Stay (Days): 4 GMLOS: No GMLOS Documented [facility] 09-13-2023 Note Formatting of this n ote [...] Stay (Days): 4 GMLOS: No GMLOS Documented [facility] 09-13-2023 Note Formatting of this [...] Stay (Days): 4 GMLOS: No GMLOS Documented [facility] 09-12-2023 Note Hospitalist Progress Note [...] Saima Tan MD Division of Hospitalist Medicine [facility] 09-12-2023 Note Formatting of this n ote might be different from the original. Care Managment Initial Assessment Date: 09/12/2023 Patient Name: Carolina Bonilla : 1975 Patient Information Source of Information: Patient Cognition/Language: WFL - Within Functional Limits Permission given to speak with patient rental sales representative/caregiver as indicated: Yes Confirmation of Payer with patient/family: Yes Payer Name: [facility] Medicaid [place]: No Confirmation of Primary Care Physician: Confirmed [...] home with Significant Other. Meg Herrmann RN [facility] 09-12-2023 Note Formatting of this n ote might be different from the original. Care Managment Initial Assessment Date: 09/12/2023 Patient Name: Carolina Bonilla : 1975 Patient Information Source of Information: Patient Cognition/Language: WFL - Within Functional Limits Permission given to speak with patient rental sales representative/caregiver as indicated: Yes Confirmation of Payer with patient/family: Yes Payer Name: [facility] Medicaid [place]: No Confirmation of Primary Care Physician: Confirmed [...] home with Significant Other. Meg Herrmann RN [employer] 09-11-2023 Note Formatting of this n ote might be different from the original. Attempted to complete Initial assessment over the phone. Patient currently unavailable/off unit. Will try again as time allows. TCC will follow. [employer] 09-11-2023 Note Formatting of this n ote might be different from the original. Attempted to complete Initial assessment over the phone. Patient currently unavailable/off unit. Will try again as time allows. TCC will follow. [employer] 09-11-2023 Note Hospitalist Progress Note 09/11/2023 Subjective: [...] Judah Valentine MD Division of Hospitalist Medicine [facility] 09-11-2023 Note ADDICTION MEDICINE CONSULTATION H&P [...] Physical Exam Vi (more content not included)... [facility] 09-11-2023 Hospital Discharg e [facility] Jozef Cordova MD - 09/11/2023 11:48 AM EST Images from the original note were not included. [facility] PROGRAMS Addiction Medicine Intensive Outpatient Program [place] ([facility]): [phone] [place]: [phone] [place]: [phone] Behavioral Health Intensive Outpatient Program [place] ([facility]): [phone] [place]: [phone] First Step [place] ([facility]): [phone] [place]: [phone] Partial Hospitalization Program [place] ([facility]): [phone] Traumatic Stress Center [place] ([facility]): [phone] [facility] ([facility]): [phone] Alcoholics Anonymous Meetings [email or web address] [address], [address], [place] [address] Saima Tan MD - 09/15/2023 12:01 PM EST F/U with PCP, GI, Addiction Medicine documented in this encounter [facility] 09-11-2023 Consult note Associated Order [...] 09/09/2023 [facility] Name: [facility] 1975 [id number] Exam Date/Time: 09/09/2023 18:44 Procedure: XR CHEST [...] 455 ms QTC Interval 501 ms P [place] 55 degrees QRS [place] -7 degrees T Wave [place] 28 degrees MI Interval 157 ms CBC auto differential Collection [...] clinical information on the day of visit. [facility] 09-11-2023 Consult note Associated Order [...] 09/09/2023 Patient Name: CAROLINA [facility]ILLA : 1975 [id number] Exam Date/Time: 09/09/2023 18:44 Procedure: XR CHEST [...] 455 ms QTC Interval 501 ms P [place] 55 degrees QRS [place] -7 degrees T Wave [place] 28 degrees MI Interval 157 ms CBC auto differential Collection [...] day of visit. documented in this encounter [facility] 09-11-2023 Nurse Note Pt was found wandering the hospital by security, confused. Pt brought back by security and she said she was going outside to smoke. She was very upset that she could not have a smoke. Pt threatened to punch someone in the face. Pt is confused. [facility] 09-11-2023 Nurse Note Pt was found wandering the hospital by security, confused. Pt brought back by security and she said she was going outside to smoke. She was very upset that she could not have a smoke. Pt threatened to punch someone in the face. Pt is confused. documented in this encounter [facility] 09-10-2023 Note Attending History an d Physical [...] hours. I revie (more content not included)... [facility] 09-10-2023 History and physical note Images from [...] MD Division of Hospitalist Medicine Inpatient Medical Services/[facility] Work Phone: 09-10-2023 History and [...] MD Division of Hospitalist Medicine Inpatient Medical Services/[facility] documented in this encounter [facility] 09-10-2023 Emergency department Note Report given to 7W at this time. Transport en route. Laura Antony RN 09/10/23 050 [facility] 09-10-2023 Emergency department Note Report given to 7W at this time. Transport en route. Laura Antony RN 09/10/23 050 They are here now to transport the patient to [facility] 09/10/23 0447 [facility] ETA 0430 RN will call report in a few :) Afua S [facility] 09/10/23 0432 EMERGENCY DEPARTMENT ENCOUNTER Pt [...] Culture. Procedure Abnormality Status --------- ------ Complete Urinalysis[[id number]] Abnormal Final result Please view results for [...] obstruction. Disposition admission to medical service at [facility]. [facility] unfortunately does not have the capacity to perform paracentesis if deemed necessary. Given this illness provider would like patient be transferred to [facility] for small bowel obstruction management, general surgery consultation. Discussed with Dr. Smith who accepted patient for transfer. Patient will be transferred to [facility]. PROCEDURES: Unless otherwise noted below, none Procedures [...] Provider JOSE Collins 09/09/232117 Emergency Department Encounter [facility] ED Patient: Carolina Bonilla : 1975 Date of Evaluation: 09/09/2023 ED Supervising Physician: Lenny Macdonald MD I independently examined and evaluated Carolina Bonilla. This will serve as my Supervisory note as the corn miller of record and shared attestation. I did [...] inpatient medicine team they recommend transfer to [facility] as they do not have IRP abilities [...] for clarification.) Lenny Macdonald MD Acute Care [facility] Lenny Macdonald MD 09/12/23 1500 Pt c/o abdominal pain that began this afternoon, states that she has hx of cirrhosis. Family states she seems off. documented in this encounter [facility] 09-10-2023 Emergency department Note They are here now to transport the patient to [facility] 09/10/23 0447 [facility] 09-10-2023 Emergency department Note [facility] ETA 0430 RN will call report in a few :) Afua [facility] 09/10/23 0432 [facility] 09-09-2023 Emergency department Triage note Pt c/o abdominal pain that began this afternoon, states that she has hx of cirrhosis. Family states she seems off. [facility] 09-09-2023 Physician Emergency department Note [...] Culture. Procedure Abnormality Status --------- ------ Complete Urinalysis[[id number]] Abnormal Final result Please view results for [...] obstruction. Disposition admission to medical service at [facility]. [facility] unfortunately does not have the capacity to perform paracentesis if deemed necessary. Given this illness provider would like patient be transferred to [facility] for small bowel obstruction management, general surgery consultation. Discussed with Dr. Smith who accepted patient for transfer. Patient will be transferred to [facility]. PROCEDURES: Unless otherwise noted below, none Procedures [...] signed) Emergency Medicine Provider JOSE Collins 09/09/232117 [facility] 09-09-2023 Physician Emergency department Note Emergency Department Encounter [facility] ED Patient: Carolina Bonilla : 1975 Date of Evaluation: 09/09/2023 ED Supervising Physician: Lenny Macdonald MD I independently examined and evaluated Carolina Bonilla. This will serve as my Supervisory note as the corn miller of record and shared attestation. I did [...] inpatient medicine team they recommend transfer to [facility] as they do not have IRP abilities [...] [employer] Lenny Macdonald MD 09/12/23 1500 [facility] Yekra Phone: 03-24-2023 Miscellaneous Notes Attempted to contact [...] advise. Miladis Blair documented in this encounter [facility] 01-27-2023 Miscellaneous Notes Pt notified. Melisa Vick [...] medication names. Please send RX to [facility] in [place] and advise patient when these have been ordered by provider per patient request. Patient has been identified by name and birthdate. Duration of symptoms: months Person calling: self Call patient at: at home [phone] (home) [phone] (cell) Was an appointment scheduled: No Closing statement: Results or non-symptom based questions: Thank you for calling [facility], your call will be returned within the next business day. dateIITiansseHighlight documented in this encounter [facility] 01-25-2023 Miscellaneous Notes January 26, 2023 PID: [id number] Carolina Bonilla [facility] [address] [address] Dear Jackie Bonilla, Your recent breast imaging [...] who ordered/prescribed your screening mammogram: Please call [phone] or EXT: [phone] to schedule an appointment for your additional [...] and reports are kept on file at [facility] as part of your permanent medical record, and are available for your continuing care. Thank you for allowing us to help in meeting your health care needs. Sincerely, Dr. Estrada Interpreting Radiologist [facility] (Additional imaging) documented in this encounter [facility] 12-02-2022 Note HNO ID: [id number] Author: JOSE Vega Service: ? Author Type: Physician Revenue Director Type: Progress Notes Filed: 12/02/2022 1:01 PM Note Text: This note was created using [email or web address]. Subjective Carolina Bonilla is a 47 year [...] PAST SURGICAL HISTORY OF 2018 liver bx [facility] ALLERGIES Aspirin, Bupropion, Codeine, Prednisone, and [...] and questions were (more content not included)... [facility] 12-02-2022 History of Presen t illness Narrative Images from the original note were not included. This note was created using [employer] Pren[employer]. Subjective Carolina Bonilla is a 47 year [...] PAST SURGICAL HISTORY OF 2018 liver bx [facility] ALLERGIES Aspirin, Bupropion, Codeine, Prednisone, and [...] discussed in detail warranting prompt ER evaluation. OJSE Vega documented in this encounter [facility] 10-02-2022 Miscellaneous Notes Left message of results on secure voicemail. Kayleen Rapp MA Please call patient and inform that her wound culture is negative. She can quit taking the ATB. She needs to follow up as directed. documented in this encounter [facility] 09-29-2022 Influenza virus A and B RNA and SARS-CoV-2 (COVID-19) N gene panel PHYLLIS+probe (Resp) COVID 19 RESULT: SARS-CoV-2 (Agent of COVID-19) Not Detected by RT-PCR or equivalent method. lyndon [id number] (EMILY)_EUA This test was developed and its performance characteristics determined by [facility]'s [facility] [place]. This test has been authorized by FDA under an Emergency Use Authorization (EUA). This test has been validated in accordance with the FDA's Guidance Document Policy for Diagnostics Testing in Laboratories Certified to Perform High Complexity Testing under CLIA prior to Emergency use Authorization for Coronavirus Disease 2019 during the Public Health Emergency issued on November 24, 2019. Test performed by [facility], [facility] [place], [address] [place] [address]. INFLUENZA A PCR: Negative for Influenza A by RT-PCR INFLUENZA B PCR: Negative for Influenza B by RT-PCR [facility] Diagnosis Bacterial skin infection- Primary Unspecified local infection of skin and subcutaneous tissue Acne vulgaris Other acne Chronic midline low back pain with bilateral sciatica [facility] Encounter for screening mammogram for breast cancer [facility] Diagnosis Wound check, abscess- Primary Encounter for other specified aftercare [facility] Diagnosis Dermatitis- Primary Contact dermatitis and other eczema, due to unspecified cause [facility] Diagnosis Chronic midline low back pain with bilateral sciatica [facility]* Diagnosis Cellulitis of chin- Primary Cellulitis and abscess of face Picking own skin Other disorder of impulse control URI, acute Acute upper respiratory infections of unspecified site [facility] Diagnosis Skin infection- Primary Unspecified local infection of skin and subcutaneous tissue [facility] Diagnosis Cellulitis of chin Cellulitis and abscess of face [facility]* Diagnosis Low back pain, unspecified back pain laterality, unspecified chronicity, unspecified whether sciatica present documented [facility]* Diagnosis Encounter for screening mammogram for breast cancer documented in [facility]* Diagnosis Small bowel obstruction (HCC)- Primary Unspecified intestinal obstruction Small bowel obstruction (HCC) Unspecified intestinal obstruction Polysubstance use disorder documented in this encounter [facility] for referral (narrative)* Diagnostic Procedure Only (Routine) - Pending Review Specialty Diagnoses / Procedures Referred By Marivel cao Referred To Contact [facility] Diagnoses Encounter for screening mammogram for breast cancer Procedures JEANETH SCREENING SCREENING MAMMOGRAPHY [place] 2-[place] [address] [place] [address] [facility] [address] [place] [address] Referral ID Status Reason Start Date Expiration Date Visits Requested Visits Authorized [id number] Pending Review Auto-Generat ed Referral 03/24/2022 04/23/2023 1 1 T [facility] for referral (narrative)* Diagnostic Procedure Only (Routine) - Closed Specialty Diagnoses / Procedures Referred By Marivel cao Referred To Contact [facility] Diagnoses Encounter for screening mammogram for breast cancer Procedures JEANETH SCREENING SCREENING MAMMOGRAPHY BI 2-VIEW BREAST INC Dacia Rice MD [address] [place] [address] [facility] [address] [place] [address] Referral ID Status Reason Start Date Expiration Date V isits Requested Visits Authorized [id number] Closed Auto-Generate d Referral 03/24/2022 04/23/2023 1 1 T [facility] for visit Narrative* Diagnostic Procedure Only (Routine) - Closed Specialty Diagnoses / Procedures Referred By Marivel cao Referred To Contact [facility] Diagnoses Encounter for screening mammogram for breast cancer Procedures JEANETH SCREENING SCREENING MAMMOGRAPHY BI 2-VIEW BREAST INC Dacia Rice MD [address] [place] [address] [facility] [address] [place] [address] Referral ID Status Reason Start Date Expiration Date V isits Requested Visits Authorized [id number] Closed Auto-Generate d Referral 03/24/2022 04/23/2023 1 1 [facility] Summary Purpose Family History No Family History Records FoundNo Family History Records FoundNo Family History Records FoundNo Family History Records FoundNo Family History Records Found Advance Directives No Advanced Directives Records FoundDocuments on File Type Date Recorded Patient Social Work Nurse Expl anation Advance Directive(s) 08/05/2018 8:00 PM Advance Directive(s) 08/04/2018 9:24 AM Documents on File Type Date Recorded Patient Social Work Nurse Expl anation Advance Directive(s) 08/05/2018 8:00 PM [...] Procedures CONSULT TO DERMATOLOGY Tresa Wells APRN.CNP [address] [place] [address] Referral ID Status Reason Start Date Expiration Date Visits Requested Visits Authorized [id number] Ref Not Required PCP Requested Referral 03/11/2022 03/11/2023 1 1 Specialty Diagnoses / Procedures Referred By Contac t Referred To Contact Saima Tan MD [address] [place] [address] Referral ID Status Reason Start Date Expiration Date V isits Requested Visits Authorized [id number] Pending Review 1 1 Additional Source Comments INFORMATION SOURCE (unrecogn ized section and content) DATE CREATED AUTHOR AUTHOR'S ORGANIZ ATION 09/03/2018 [facility] DATE CREATED AUTHOR AUTHOR'S ORGANIZ ATION 11/10/2021 [facility] DATE CREATED AUTHOR AUTHOR'S ORGANIZ ATION 09/24/2023 [facility] DATE CREATED AUTHOR AUTHOR'S ORGANIZ ATION 10/02/2023 [facility] Source Comments (unrecognize d section and content) In the event this informatio n is protected by the Federal Confidentiality of Alcohol and Drug Abuse Patient Records regulations: The Federal rules restrict any use of the information to criminally investigate or prosecute any alcohol or drug abuse patient.[facility] the event this information is protected by the Federal Confidentiality of Alcohol and Drug Abuse Patient Records regulations: The Federal rules restrict any use of the information to criminally investigate or prosecute any alcohol or drug abuse patient.[facility] the event this information is protected by the Federal Confidentiality of Alcohol and Drug Abuse Patient Records regulations: The Federal rules restrict any use of the information to criminally investigate or prosecute any alcohol or drug abuse patient.[facility] the event this information is protected by the Federal Confidentiality of Alcohol and Drug Abuse Patient Records regulations: The Federal rules restrict any use of the information to criminally investigate or prosecute any alcohol or drug abuse patient.[facility] the event this information is protected by the Federal Confidentiality of Alcohol and Drug Abuse Patient Records regulations: The Federal rules restrict any use of the information to criminally investigate or prosecute any alcohol or drug abuse patient.[facility] the event this information is protected by the Federal Confidentiality of Alcohol and Drug Abuse Patient Records regulations: The Federal rules restrict any use of the information to criminally investigate or prosecute any alcohol or drug abuse patient.[facility] the event this information is protected by the Federal Confidentiality of Alcohol and Drug Abuse Patient Records regulations: The Federal rules restrict any use of the information to criminally investigate or prosecute any alcohol or drug abuse patient.[facility] the event this information is protected by the Federal Confidentiality of Alcohol and Drug Abuse Patient Records regulations: The Federal rules restrict any use of the information to criminally investigate or prosecute any alcohol or drug abuse patient.[facility] the event this information is protected by the Federal Confidentiality of Alcohol and Drug Abuse Patient Records regulations: The Federal rules restrict any use of the information to criminally investigate or prosecute any alcohol or drug abuse patient.[facility] the event this information is protected by the Federal Confidentiality of Alcohol and Drug Abuse Patient Records regulations: The Federal rules restrict any use of the information to criminally investigate or prosecute any alcohol or drug abuse patient.[facility] the event this information is protected by the Federal Confidentiality of Alcohol and Drug Abuse Patient Records regulations: The Federal rules restrict any use of the information to criminally investigate or prosecute any alcohol or drug abuse patient.[facility] the event this information is protected by the Federal Confidentiality of Alcohol and Drug Abuse Patient Records regulations: The Federal rules restrict any use of the information to criminally investigate or prosecute any alcohol or drug abuse patient.[facility] the event this information is protected by the Federal Confidentiality of Alcohol and Drug Abuse Patient Records regulations: The Federal rules restrict any use of the information to criminally investigate or prosecute any alcohol or drug abuse patient.[facility] the event this information is protected by the Federal Confidentiality of Alcohol and Drug Abuse Patient Records regulations: The Federal rules restrict any use of the information to criminally investigate or prosecute any alcohol or drug abuse patient.[facility] the event this information is protected by the Federal Confidentiality of Alcohol and Drug Abuse Patient Records regulations: The Federal rules restrict any use of the information to criminally investigate or prosecute any alcohol or drug abuse patient.[facility] the event this information is protected by the Federal Confidentiality of Alcohol and Drug Abuse Patient Records regulations: The Federal rules restrict any use of the information to criminally investigate or prosecute any alcohol or drug abuse patient.[facility] the event this information is protected by the Federal Confidentiality of Alcohol and Drug Abuse Patient Records regulations: The Federal rules restrict any use of the information to criminally investigate or prosecute any alcohol or drug abuse patient.[facility] the event this information is protected by the Federal Confidentiality of Alcohol and Drug Abuse Patient Records regulations: The Federal rules restrict any use of the information to criminally investigate or prosecute any alcohol or drug abuse patient.[facility] the event this information is protected by the Federal Confidentiality of Alcohol and Drug Abuse Patient Records regulations: The Federal rules restrict any use of the information to criminally investigate or prosecute any alcohol or drug abuse patient.[facility] the event this information is protected by the Federal Confidentiality of Alcohol and Drug Abuse Patient Records regulations: The Federal rules restrict any use of the information to criminally investigate or prosecute any alcohol or drug abuse patient.[facility] the event this information is protected by the Federal Confidentiality of Alcohol and Drug Abuse Patient Records regulations: The Federal rules restrict any use of the information to criminally investigate or prosecute any alcohol or drug abuse patient.[facility] Reason for Visit (unrecogniz ed section and [...] (HCC) Procedures . Cindi Smith MD [address] [address] [facility] 7[address] Respiratory [address] [place] [address] Referral ID Status Reason Start Date Expiration Date Visits Re quested Visits Authorized [id number] 1 1 Care Teams (unrecognized sec tion and content) Supervisory Examiner Relationship Specialty Start Date End Date Dacia Leo MD [address] [place] [address] PCP - General Family Practice 08/24/10 Supervisory Examiner Relationship Specialty Start Date End Date Dacia Leo MD [address] [place] [address] PCP - General Family Practice 08/24/10 Supervisory Examiner Relationship Specialty Start Date End Date Dacia Leo MD [address] [place] [address] PCP - General Family Practice 08/24/10 Supervisory Examiner Relationship Specialty Start Date End Date Dacia Leo MD [address] [place] [address] PCP - General Family Practice 08/24/10 Supervisory Examiner Relationship Specialty Start Date End Date Dacia Leo MD [address] [place] [address] PCP - General Family Practice 08/24/10 Supervisory Examiner Relationship Specialty Start Date End Date Dacia Leo MD [address] [place] [address] PCP - General Family Practice 08/24/10 Supervisory Examiner Relationship Specialty Start Date End Date Dacia Leo MD [address] [facility] [place] [address] PCP - General Family Practice 08/24/10 Supervisory Examiner Relationship Specialty Start Date End Date Dacia Leo MD [address] [facility] [place] [address] PCP - General Family Practice 08/24/10 Supervisory Examiner Relationship Specialty Start Date End Date Dacia Leo MD [address] [facility] [place] [address] PCP - General Family Practice 08/24/10 Supervisory Examiner Relationship Specialty Start Date End Date Dacia Leo MD [address] [facility] [place] [address] PCP - General Family Medicine 08/24/10 Supervisory Examiner Relationship Specialty Start Date End Date Dacia Leo MD [address] [facility] [place] [address] PCP - General Family Medicine 08/24/10 Supervisory Examiner Relationship Specialty Start Date End Date Dacia Leo MD [address] [facility] [place] [address] PCP - General Family Medicine 08/24/10 Supervisory Examiner Relationship Specialty Start Date End Date Dacia Leo MD [address] [facility] [place] [address] PCP - General Family Medicine 08/24/10 Supervisory Examiner Relationship Specialty Start Date End Date Dacia Leo MD [address] [facility] [place] [address] PCP - General Family Medicine 08/24/10 Supervisory Examiner Relationship Specialty Start Date End Date Dacia Leo MD [address] [facility] [place] [address] PCP - General Family Medicine 08/24/10 Supervisory Examiner Relationship Specialty Start Date End Date Dacia Leo MD [address] [facility] [place] [address] PCP - General Family Medicine 08/24/10 Supervisory Examiner Relationship Specialty Start Date End Date Dacia Leo MD [address] [place] [address] PCP - General Family Medicine 08/24/10 Scheduled [...] sedation for opioid reversal - MUST notify ruby on rails engineer provider immediately after first dose, may give [...] - Provider: Haritha Martinez RN) sodium chloride (Crump) 0.65 % nasal spray 2 spray 2 [...] BE BASED ON THE PRIMARY CLINICAL RECORDS. [employer] [facility]. provides no warranty or guarantee of the accuracy or completeness of information in this document.
--- OUTSIDE RECORDS SUMMARY | 2023-10-12 09:30 | XMS RPT_ITS | CCD ---
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 Name Role Phone GELA AGUDELO Unavailable Unavailable [...] sources) Aspirin; Translations: [ASPIRIN] Drug Allergy 5 [facility] (20 sources) buPROPion; Translations: [BUPROPION HCL] Drug Allergy 3 Other: See Comments [facility] (20 sources) Codeine; Translations: [CODEINE] Drug Allergy 5 Rash, Hives [facility] (20 sources) buPROPion; Translations: [BUPROPION] Drug Allergy 3 Other: See Comments [facility] (20 sources) predniSONE; Translations: [PREDNISONE] Drug Allergy 9 Rash [facility] Work Phone: (3 sources) Prednisone Propensity to adverse reactions 9 Rash [facility] Medications Current Medications Medication Drug Class(es) [...] tablet 650 mg 20 ml albumin human, jail 250 mg/ml injection (2 sources) Human Serum Albumin Start: 09-10-2023 End: 09-10-2023 albumin human 25 % IV solution 50 g [id number] 200 actuat albuterol 0.09 mg/actuat metered dose [...] 38.38 kg/m2 Lenny Macdonald MD Work Phone: [facility] [employer] 09-15-2023 12:01-0500 Body weight 95.21 kg Lenny Macdonald MD Work Phone: [facility] [employer] 09-15-2023 11:39-0500 Body height 157.5 cm Lenny Macdonald MD Work Phone: [facility] [employer] 09-15-2023 06:02-0500 Body temperature 97.3 [degF] Lenny Macdonald MD Work Phone: [facility] [employer] 09-15-2023 06:02-0500 Diastolic blood pressure 53 mm[Hg] Lenny Macdonald MD Work Phone: [facility] [employer] 09-15-2023 06:02-0500 Heart rate 68 /min Lenny Macdonald MD Work Phone: [facility] [employer] 09-15-2023 06:02-0500 Respiratory rate 16 /min Lenny Macdonald MD Work Phone: [facility] [employer] 09-15-2023 06:02-0500 SaO2% (BldA) [Mass fraction] 98 % Lenny Macdonald MD Work Phone: [facility] [employer] 09-15-2023 06:02-0500 Systolic blood pressure 91 mm[Hg] Lenny Macdonald MD Work Phone: [facility] [employer] 12-02-2022 12:49-0500 Body temperature 98.29 [degF] Joselito GARCIA Work Phone: [facility] 12-02-2022 12:49-0500 Body weight 94.62 kg Krislyn Aberegg PA Work Phone: [facility] 12-02-2022 12:49-0500 Diastolic blood pressure 78 mm[Hg] Krislyn Aberegg PA Work Phone: [facility] 12-02-2022 12:49-0500 Heart rate 64 /min Krislyn Aberegg PA Work Phone: [facility] 12-02-2022 12:49-0500 Respiratory rate 16 /min Krislyn Aberegg PA Work Phone: [facility] 12-02-2022 12:49-0500 SaO2% (BldA) [Mass fraction] 98 % Krislyn Aberegg PA Work Phone: [facility] 12-02-2022 12:49-0500 Systolic blood pressure 104 mm[Hg] Krislyn Aberegg PA Work Phone: [facility] 09-29-2022 17:56-0500 Body temperature 98.2 [degF] Ananda Prabhakar MD Work Phone: [facility] 09-29-2022 17:56-0500 Body weight 94.98 kg Ananda Prabhakar MD Work Phone: [facility] 09-29-2022 17:56-0500 Diastolic blood pressure 82 mm[Hg] Ananda Prabhakar MD Work Phone: [facility] 09-29-2022 17:56-0500 Heart rate 67 /min Ananda Prabhakar MD Work Phone: [facility] 09-29-2022 17:56-0500 Respiratory rate 20 /min Ananda Prabhakar MD Work Phone: [facility] 09-29-2022 17:56-0500 SaO2% (BldA) [Mass fraction] 99 % Ananda Prabhakar MD Work Phone: [facility] 09-29-2022 17:56-0500 Systolic blood pressure 122 mm[Hg] Ananda Prabhakar MD Work Phone: [facility] 05-10-2022 15:42-0400 Diastolic blood pressure 96 mm[Hg] Dacia Leo MD Work Phone: [facility] 05-10-2022 15:42-0400 Systolic blood pressure 148 mm[Hg] Dacia Leo MD Work Phone: [facility] 05-10-2022 15:39-0400 Body weight 89.18 kg Dacia Leo MD Work Phone: [facility] 05-10-2022 15:39-0400 Heart rate 92 /min Dacia Leo MD Work Phone: [facility] 05-10-2022 15:39-0400 Respiratory rate 20 /min Dacia Leo MD Work Phone: [facility] 05-09-2022 14:43-0400 Body temperature 98.6 [degF] Blanca Dawson APRN.IN HOME TUTOR Work Phone: [facility] 05-09-2022 14:43-0400 Body weight 91.54 kg Blanca Dawson APRN.IN HOME TUTOR Work Phone: [facility] 05-09-2022 14:43-0400 Diastolic blood pressure 74 mm[Hg] Blanca Dawson APRN.IN HOME TUTOR Work Phone: [facility] 05-09-2022 14:43-0400 Heart rate 85 /min Blanca Dawson APRN.IN HOME TUTOR Work Phone: [facility] 05-09-2022 14:43-0400 Respiratory rate 21 /min Blanca Dawson APRN.IN HOME TUTOR Work Phone: [facility] 05-09-2022 14:43-0400 SaO2% (BldA) [Mass fraction] 99 % Blanca Dawson APRN.IN HOME TUTOR Work Phone: [facility] 05-09-2022 14:43-0400 Systolic blood pressure 126 mm[Hg] Blanca Dawson APRN.IN HOME TUTOR Work Phone: [facility] 03-11-2022 14:26-0400 Body weight 92.08 kg Tresa Tannhof VEGETABLE HANDLER.IN HOME TUTOR Work Phone: [facility] 03-11-2022 14:26-0400 Diastolic blood pressure 64 mm[Hg] Tresa Tannhof VEGETABLE HANDLER.IN HOME TUTOR Work Phone: [facility] 03-11-2022 14:26-0400 Heart rate 62 /min Tresa Tannhof VEGETABLE HANDLER.IN HOME TUTOR Work Phone: [facility] 03-11-2022 14:26-0400 Respiratory rate 14 /min Tresa Tannhof VEGETABLE HANDLER.IN HOME TUTOR Work Phone: [facility] 03-11-2022 14:26-0400 Systolic blood pressure 106 mm[Hg] Tresa Tannhof VEGETABLE HANDLER.IN HOME TUTOR Work Phone: [facility] 01-11-2022 13:23-0400 Body temperature 97.81 [degF] Becca Enmanuel VEGETABLE HANDLER.IN HOME TUTOR Work Phone: [facility] 01-11-2022 13:23-0400 Body weight 96.34 kg Becca Enmanuel VEGETABLE HANDLER.IN HOME TUTOR Work Phone: [facility] 01-11-2022 13:23-0400 Diastolic blood pressure 62 mm[Hg] Becca Enmanuel VEGETABLE HANDLER.IN HOME TUTOR Work Phone: [facility] 01-11-2022 13:23-0400 Heart rate 65 /min Becca Enmanuel VEGETABLE HANDLER.IN HOME TUTOR Work Phone: [facility] 01-11-2022 13:23-0400 Respiratory rate 21 /min Becca Enmanuel VEGETABLE HANDLER.IN HOME TUTOR Work Phone: [facility] 01-11-2022 13:23-0400 SaO2% (BldA) [Mass fraction] 99 % Becca Enmanuel VEGETABLE HANDLER.IN HOME TUTOR Work Phone: [facility] 01-11-2022 13:23-0400 Systolic blood pressure 102 mm[Hg] Becca Enmanuel VEGETABLE HANDLER.IN HOME TUTOR Work Phone: [facility] 08-04-2018 12:36-0500 Body surface [facility] 12:11-0500 Body surface area Derived from formula [facility] Encounters Encounter Date Encounter Type Care Provider Facility Start: 09-16-2023 Telephone encounter Emperatriz Chacon [facility] Clinical Communication Start: 09-09-2023 End: 09-15-2023 Evaluation and management of inpatient [facility] Start: 09-09-2023 End: 09-15-2023 Evaluation and management of inpatient Lenny Macdonald MD Work Phone: [facility] Respiratory Unit 7W Procedures Date Procedure [...] or older (1 - 1-dose 60+ series) [facility] Start: 07-20-2033 DTaP/Tdap/Td Vaccines (2 - Td or Tdap) DTaP/Tdap/Td Vaccines (2 - Td or Tdap) [facility] Start: 07-20-2033 Urine microalbumin profile DTaP,Tdap,Td Vaccine (2 - Td or Tdap) [facility] Start: 06-24-2024 DIABETES SCREEN DIABETES SCREEN [facility] Start: 06-24-2024 Diabetes Screening Diabetes Screening [facility] Start: 02-21-2024 HPV TESTING HPV TESTING [facility] Start: 02-21-2024 PAP TESTING PAP TESTING [facility] Start: 01-25-2024 Mammography [facility] Start: 2023 Zoster Vaccines (1 of 2) Zoster Vaccines (1 of 2) [facility] Start: 05-27-2023 Influenza vaccination [facility] Start: 12-02-2022 End: 02-01-2023 Bacteria identified in Wound by Culture WOUND CULTURE AND GRAM STAIN Microbiology Routine Skin infection Expected: 12/02/2022, Expires: 02/01/2023 [facility] Work Phone: Immunizations Immunization Date Immunization Notes Care Provider Fa [facility] 07-20-2023 tetanus toxoid, redu viridiana diphtheria toxoid, and acellular pertussis vaccine, adsorbed Lenny Macdonald MD Work Phone: [facility] 08-06-2018 influenza, injectabl e, quadrivalent, preservative free Becca Enmanuel VEGETABLE HANDLER.IN HOME TUTOR Work Phone: [facility] 08-06-2018 influenza virus vaccine, unspecified formulation Screen Wstr [facility] 08-05-2018 pneumococcal polysaccharide vaccine, 23 valent Becca Enmanuel VEGETABLE HANDLER.IN HOME TUTOR Work Phone: [facility] NEGATED: Highlighted row has not occurred!09-11-2023 Influenza, injectable, [place] Canine Kidney, preservative free, quadrivalent Lenny Macdonald MD Work Phone: [facility] Payers Date Payer Category Payer Medicaid [id number] 2015 Medicaid [id number] 2015 Medicaid [facility] MEDIC AID [facility] MEDICAID [id number] 2015-Present [phone] [address] [place] [address] Medicaid [id number] 2015 Medicaid [id number] Social History Date Type Detail Facility Start: 04-14-2017 End: 05-09-2022 Tobacco smoking status NHIS Smokes tobacco daily [facility] Work Phone: History of tobacco use Cigarette Smoker [facility] Work Phone: Start: 01-11-2022 End: 12-02-2022 Alcohol intake Current drinker of alcohol (finding) [facility] Start: 02-28-2020 History SDOH Alcohol Frequency 3 [facility] Start: 12-10-2011 History SDOH Alcohol Comment occasionally mixed drink [facility] Start: 04-14-2017 End: 05-09-2022 Tobacco Comment maybe more then 1 pack daily [facility] Start: 1975 Sex Assigned At Not on file [facility] Start: 01-01-2022 End: 05-26-2022 Exposure to SARS-CoV-2 (event) Not sure [facility] Work Phone: Start: 04-14-2017 End: 09-10-2023 Cigarettes smoked current (pack per day) - Reported 1 [facility] Work Phone: Start: 04-14-2017 End: 05-09-2022 Tobacco use and exposure Smokeless tobacco non-user [facility] Start: 04-30-2022 End: 05-10-2022 Exposure to SARS-CoV-2 (event) Yes [facility] Start: 02-28-2020 End: 09-10-2023 Alcohol Use Disorder Identification Test - Consumption [AUDIT-C] [facility] Work Phone: How often to you hav e a drink containing alcohol? 2-4 times a month [facility] Work Phone: Average Number of Drinks Not on file [facility] Within the last year , have you been afraid of your partner or ex-partner? No [facility] How often to you hav e a drink containing alcohol? Never [facility] Clinical Notes 01-11-2022 to 09-20-2023 Telephone Encounter - Emperatriz Chacon LPN - 09/20/2023 9:58 AM ESTTelephone Encounter - Emperatriz Chacon LPN - 09/20/2023 9:[address] - 09/15/2023 12:12 PM EST Note Date & Type Note Facility 09-20-2023 Telephone encounter Note Unable to contact patient X2 [facility] 09-20-2023 Miscellaneous Notes Unable to contact patient X2 S: Patient admitted to: [facility] 09/09/23 B: Discharged on : 09/15/23 A: Hospital follow up call initiated to discuss any medication changes, follow up appointments and discharge instructions: Small bowel obstruction R: No contact x 1 at : [phone] documented in this encounter [facility] 09-16-2023 Telephone encounter Note S: Patient admitted to: [facility] 09/09/23 B: Discharged on : 09/15/23 A: Hospital follow up call initiated to discuss any medication changes, follow up appointments and discharge instructions: Small bowel obstruction R: No contact x 1 at : [phone] [facility] 09-15-2023 Note Formatting of this n [...] service. SW placed call to [facility] [phone]. Transport arranged for picker tender helper at [address] between 4:12-6:12pm. They will call the unit 15 minutes prior to their arrival . Ref # [id number]. beater worker helper updated patients bedside RN, who will update the patient. [facility] 09-15-2023 Note Formatting of this n [...] their uber/lyft service. SW placed call to [facility] [phone]. Transport arranged for picker tender helper at [address] between 4:12-6:12pm. They will call the unit 15 minutes prior to their arrival . Ref # [id number]. beater worker helper updated patients bedside RN, who will update the patient. [facility] 09-15-2023 Miscellaneous Notes Social work follow up on discharge. SW notified by patients bedside RN patient needs assist with transport to home. SHELL spoke to patient to confirm address on file is correct. She reports she typically will use her [facility] johnny for transport and uses their uber/lyft service. SW placed call to [facility] [phone]. Transport arranged for picker tender helper at [address] between 4:12-6:12pm. They will call the unit 15 minutes prior to their arrival . Ref # [id number]. beater worker helper updated patients bedside RN, who will update [...] Limits Permission given to speak with patient telesales representative/caregiver as indicated: Yes Confirmation of Payer with patient/family: Yes Payer Name: [employer] [place]: No Confirmation of Primary Care Physician: Confirmed [...] TCC will follow. documented in this encounter [facility] 09-15-2023 Note Discharge Summary Carolina Bonilla [...] SIGNIFICANT DIAGNOSTIC STUDIES: US guided abdominal paracentesis [[id number]] Collected: 09/14/231134 Order Status: Completed Updated: 09/14/231136 [...] 11:36 AM EST US guided abdominal paracentesis [[id number]] Collected: 09/10/23853 Order Status: Completed Updated: 09/10/23854 Narrative: Patient Name: CAROLINA BONILLA : 1975 Exam Date/Time: 09/10/2023 08:29 Proced (more content not included)... [facility] 09-15-2023 History of Presen t illness Narrative [...] (S/p paracentesis 09/14 with 1.7L removed) Ascites Director [employer] Strength: Not Performed Nutrition Assessment: 47yo F [...] On: Kcal/kg Weight Used for Energy Requirements: Faison Weight for Energy Calculation (kg): 50 kg Total Energy Requirements (kcals/day): 27-32 kcal/kg = 3030-7679 kcal/day Weight Used for Protein Requirements: [place] Weight in Kg Used for Protein Requirements: [...] lb) (stated) % Weight Change (Calculated): 5 [place]ison Body Weight (lbs) (Calculated): 110 lbs [place] Body Weight (Kg) (Calculated): 50 kg % [place]ison Body Weight (Calculated): 190.8 % BMI (kg/m2) [...] Continue current diet Latha Lester RD Contact: *[phone] Images from the original note were not included. Hospitalist Progress Note 09/15/2023 Subjective: Admit Date: 09/09/2023 PCP: No primary care provider on file. Room#: W7-726/W7725 A Brief Hospital course: Patient is 47-year-old [...] 1,000 mL enema, 1 enema, Rectal, TID ggomndmb-wjfefwtlhh-brflchpfj, , Topical, TID pantoprazole (ProtoNix) 40 mg [...] Saima Tan MD Division of Hospitalist Medicine [facility] Images from the original note [...] 1,000 mL enema, 1 enema, Rectal, TID xzyuthbl-czbgtbeflx-wetudxugs, , Topical, TID pantoprazole (ProtoNix) 40 mg [...] Saima Tan MD Division of Hospitalist Medicine [facility] Images from the original note [...] Saima Tan MD Division of Hospitalist Medicine [facility] Images from the original note [...] Surgery PGY-1 09/12/23 4:53 PM Pager # [phone] This note may have been dictated using [employer] Medical Practice Edition 2.6 and/or [employer] Voice Recognition Feature. The document was proofread; however, unrecognized voice recognition manufacturers representative errors may be present. Associated attestation - [...] FACS Division of Trauma Department of Surgery [facility] ~~~~~~~~~~~~~~~~~~~~~~~~~~~~~~~~ ~~~~~~~~~~~~~~~~~~~~~~~~~~~~~ This note may have been dictated using [employer] Medical Practice Edition 2.6 and/or [employer] Voice Recognition Feature. The document was proofread; however, unrecognized voice recognition manufacturers representative errors may be present. [facility] ADMISSION MEDICATION RECONCILIATION Date: 09/12/23 Room:[facility] A Patient Name: Carolina Bonilla Allergies: Aspirin, [...] on last fill dates from [facility]'s [facility]. Home medications to restart if there [...] muscle mass loss Fluid Accumulation: Mild Ascites Director [employer] Strength: Not Performed Nutrition Assessment: 47yo F [...] On: Kcal/kg Weight Used for Energy Requirements: [place]ison Weight for Energy Calculation (kg): 50 kg Total Energy Requirements (kcals/day): 27-32 kcal/kg = 6407-7377 kcal/day Weight Used for Protein Requirements: [place] Weight in Kg Used for Protein Requirements: [...] 05/26/22 198#) % Weight Change (Calculated): 2.8 Faison Body Weight (lbs) (Calculated): 110 lbs Faison Body Weight (Kg) (Calculated): 50 kg % [place]ison Body Weight (Calculated): 186.9 % BMI (kg/m2) [...] soon to determine Latha Lester RD Contact: *[phone] Images from the original note were not included. Hospitalist Progress Note 09/12/2023 Subjective: Admit Date: 09/09/2023 PCP: No primary care provider on file. Room#: W7-596/W7-915 A Brief Hospital course: Patient is 47-year-old [...] Saima Tan MD Division of Hospitalist Medicine [facility] Images from the original note were not included. Hospitalist Progress Note 09/11/2023 Subjective: Admit Date: 09/09/2023 PCP: No primary care provider on file. Room#: W7-726/[facility]726 A Interval History: Patient is 47-year-old [...] Judah Valentine MD Division of Hospitalist Medicine [facility] Nutrition rescreen completed. Patient is [...] to follow closely. documented in this encounter [facility] 09-15-2023 Hospital course Narrative Discharge Summary [...] SIGNIFICANT DIAGNOSTIC STUDIES: US guided abdominal paracentesis [[id number]] Collected: 09/14/23 1134 Order Status: Completed Updated: 09/14/231136 Narrative: Patient [...] 11:36 AM EST US guided abdominal paracentesis [[id number]] Collected: 09/10/23853 Order Status: Completed Updated: 09/10/23854 [...] AM EST CT abdomen pelvis w contrast [[id number]] Collected: 09/09/232018 Order Status: Completed Updated: 09/09/232028 [...] 8:28 PM EST XR chest 1 view [[id number]] Collected: 09/09/231846 Order Status: Completed Updated: 09/09/231848 Narrative: Patient Name: CAROLINA BONILLA : 1975 [facility]#: [id number] Exam Date/Time: 09/09/2023 18:44 Procedure: XR CHEST [...] Your Medications These medications were sent to [id number] [place] - [address] [place] [address] desvenlafaxine 100 MG 24 hr tablet doxepin 10 MG capsule traZODone 100 MG tablet DIET: Adult diet Regular ACTIVITY: No restriction. COMPLEXITY OF FOLLOW UP: [] Moderate Complexity: follow up within 7-14 calendar days (87311) [] Severe Complexity: follow up within 7 calendar days (05746) FOLLOW UP TESTING, PENDING RESULTS OR REFERRALS AT TRANSITIONAL CARE VISIT: [] Yes [] No PENDING STUDIES: DISPOSITION: Home FACILITY/HOME CARE AGENCY NAME: Follow up with Cristiana Strauss MD [address] [facility] [phone] Schedule an appointment as soon as possible [...] 09/15/2023, 12:04 PM documented in this encounter [facility] 09-15-2023 Note Hospitalist Progress Note 09/15/2023 [...] 1,000 mL enema, 1 enema, Rectal, TID eobuhong-pumbasgrbb-aywqhbrpt, , Topical, TID pantoprazole (ProtoNix) 40 mg [...] Pedersen MD [facility] Division of Hospitalist Medicine [facility] 09-14-2023 Note Formatting of this n ote might be different from the original. Chart reviewed. Patient had paracentesis today with 1700 ml removed. Surgery is following patient for likely ileus -->no plans for intervention and recommend ADAT. Current discharge plan is home no needs once medically stable. [facility] 09-14-2023 Note Formatting of this n ote might be different from the original. Chart reviewed. Patient had paracentesis today with 1700 ml removed. Surgery is following patient for likely ileus -->no plans for intervention and recommend ADAT. Current discharge plan is home no needs once medically stable. [facility] 09-14-2023 Note Hospitalist Progress Note 09/14/2023 [...] 1,000 mL enema, 1 enema, Rectal, TID tqvuirpc-rctntvjsif-ktoarbhev, , Topical, TID pantoprazole (ProtoNix) 40 mg [...] Pedersen MD [facility] Division of Hospitalist Medicine [facility] 09-14-2023 Note Formatting of this n ote might be different from the original. Patient to ultrasound department for paracentesis. History, medications and allergies reviewed. Samuel Pastor PA-C in to speak with patient. Informed consent obtained. 1700 mL clear yellow colored fluid removed. Patient tolerated procedure well. Bandaid applied to site. Patient discharged to 7[facility] 09-14-2023 Note Formatting of this n ote might be different from the original. Patient to ultrasound department for paracentesis. History, medications and allergies reviewed. Samuel Pastor PA-C in to speak with patient. Informed consent obtained. 1700 mL clear yellow colored fluid removed. Patient tolerated procedure well. Bandaid applied to site. Patient discharged to 7[facility] 09-13-2023 Note Hospitalist Progress Note 09/13/2023 Subjective: Admit Date: 09/09/2023 PCP: No primary care provider on file. Room#: W726/[facility] A Brief Hospital course: Patient is 47-year-old [...] Pedersen MD [facility] Division of Hospitalist Medicine [facility] 09-13-2023 Note Care Management Prog ress [...] Stay (Days): 4 GMLOS: No GMLOS Documented [facility] 09-13-2023 Note Formatting of this [...] Stay (Days): 4 GMLOS: No GMLOS Documented [facility] 09-13-2023 Note Formatting of this n [...] Stay (Days): 4 GMLOS: No GMLOS Documented [facility] 09-12-2023 Note Hospitalist Progress Note 09/12/2023 [...] Saima Tan MD Division of Hospitalist Medicine [facility] 09-12-2023 Note Formatting of this n ote might be different from the original. Care Managment Initial Assessment Date: 09/12/2023 Patient Name: Carolina Bonilla : 1975 Patient Information Source of Information: Patient Cognition/Language: WFL - Within Functional Limits Permission given to speak with patient telesales representative/caregiver as indicated: Yes Confirmation of Payer with patient/family: Yes Payer Name: [facility] Medicaid [place]: No Confirmation of Primary Care Physician: Confirmed [...] home with Significant Other. Meg Herrmann RN [facility] 09-12-2023 Note Formatting of this n ote might be different from the original. Care Managment Initial Assessment Date: 09/12/2023 Patient Name: Carolina Bonilla : 1975 Patient Information Source of Information: Patient Cognition/Language: WFL - Within Functional Limits Permission given to speak with patient telesales representative/caregiver as indicated: Yes Confirmation of Payer with patient/family: Yes Payer Name: [facility] Medicaid [place]: No Confirmation of Primary Care Physician: Confirmed [...] home with Significant Other. Meg Herrmann RN [employer] 09-11-2023 Note Formatting of this n ote might be different from the original. Attempted to complete Initial assessment over the phone. Patient currently unavailable/off unit. Will try again as time allows. TCC will follow. [employer] 09-11-2023 Note Formatting of this n ote might be different from the original. Attempted to complete Initial assessment over the phone. Patient currently unavailable/off unit. Will try again as time allows. TCC will follow. [employer] 09-11-2023 Note Hospitalist Progress Note 09/11/2023 Subjective: [...] Judah Valentine MD Division of Hospitalist Medicine [facility] 09-11-2023 Note ADDICTION MEDICINE CONSULTATION H&P [...] Physical Exam Vi (more content not included)... [facility] 09-11-2023 Hospital Discharg e [facility] Jozef Cordova MD - 09/11/2023 11:48 AM EST Images from the original note were not included. [facility] Addiction Medicine Intensive Outpatient Program [place] (Results [facility]): [phone] [place]: [phone] [place]: [phone] Behavioral Health Intensive Outpatient Program [place] (Results [facility]): [phone] [place]: [phone] [facility] [place] (Results [facility]): [phone] [place]: [phone] Partial Hospitalization Program [place] (Results [facility]): [phone] [facility] [place] (Results [facility]): [phone] [facility] ([facility]): [phone] Alcoholics Anonymous Meetings [email or web address] [address], [address], [place] [address] Saima Tan MD - 09/15/2023 12:01 PM EST F/U with PCP, GI, Addiction Medicine documented in this encounter [facility] 09-11-2023 Consult note Associated Order (s): [...] view Result Date: 09/09/2023 [facility] Name: [facility]OL[facility] 1975 [id number] Exam Date/Time: 09/09/2023 18:44 Procedure: XR CHEST [...] 455 ms QTC Interval 501 ms P [place] 55 degrees QRS [place] -7 degrees T Wave [place] 28 degrees AL Interval 157 ms CBC auto differential Collection [...] clinical information on the day of visit. [facility] 09-11-2023 Consult note Associated Order (s): [...] 09/09/2023 Patient Name: CAROLINA BONILLA : 1975 [id number] Exam Date/Time: 09/09/2023 18:44 Procedure: XR CHEST [...] 455 ms QTC Interval 501 ms P [place] 55 degrees QRS [place] -7 degrees T Wave [place] 28 degrees AL Interval 157 ms CBC auto differential Collection [...] day of visit. documented in this encounter [facility] 09-11-2023 Nurse Note Pt was found wandering the hospital by security, confused. Pt brought back by security and she said she was going outside to smoke. She was very upset that she could not have a smoke. Pt threatened to punch someone in the face. Pt is confused. [facility] 09-11-2023 Nurse Note Pt was found wandering the hospital by security, confused. Pt brought back by security and she said she was going outside to smoke. She was very upset that she could not have a smoke. Pt threatened to punch someone in the face. Pt is confused. documented in this encounter [facility] 09-10-2023 Note Attending History an d [...] hours. I revie (more content not included)... [facility] 09-10-2023 History and physical note Images from [...] MD Division of Hospitalist Medicine [place] [facility] Work Phone: 09-10-2023 History and physical [...] MD Division of Hospitalist Medicine [place] [place] documented in this encounter [facility] 09-10-2023 Emergency department Note Report given to 7W at this time. Transport en route. Laura Antony RN 09/10/23 050 [facility] 09-10-2023 Emergency department Note Report given to 7W at this time. Transport en route. Laura Antony RN 09/10/23 050 They are here now to transport the patient to [facility] 09/10/23 0447 [facility] ETA 0430 RN will call report in a few :) Afua S [facility] 09/10/23 0432 EMERGENCY DEPARTMENT ENCOUNTER Pt [...] Culture. Procedure Abnormality Status --------- ------ Complete Urinalysis[[id number]] Abnormal Final result Please view results for [...] admission to medical service at [facility]. [facility] unfortunately does not have the capacity to perform paracentesis if deemed necessary. Given this illness provider would like patient be transferred to [facility] for small bowel obstruction management, general surgery consultation. Discussed with Dr. Smith who accepted patient for transfer. Patient will be transferred to [facility]. PROCEDURES: Unless otherwise noted below, none [...] Provider JOSE Collins 09/09/232117 Emergency Department Encounter [facility] ED Patient: Carolina Bonilla : 1975 Date of Evaluation: 09/09/2023 ED Supervising Physician: Lneny Macdonald MD I independently examined and evaluated Carolina Bonilla. This will serve as my Supervisory note as the founder chairman and chief creative officer of record and shared attestation. I did [...] inpatient medicine team they recommend transfer to [facility] as they do not have IRP [...] for clarification.) Lenny Macdonald MD Acute Care [facility] Lenny Macdonald MD 09/12/23 1500 Pt c/o abdominal pain that began this afternoon, states that she has hx of cirrhosis. Family states she seems off. documented in this encounter [facility] 09-10-2023 Emergency department Note They are here now to transport the patient to [facility] 09/10/23 0447 [facility] 09-10-2023 Emergency department Note [facility] ETA 0430 RN will call report in a few :) Afua Vuong Waldo 09/10/23 0432 [facility] 09-09-2023 Emergency department Triage note Pt c/o abdominal pain that began this afternoon, states that she has hx of cirrhosis. Family states she seems off. [facility] 09-09-2023 Physician Emergency department Note EMERGENCY [...] Culture. Procedure Abnormality Status --------- ------ Complete Urinalysis[[id number]] Abnormal Final result Please view results for [...] admission to medical service at [facility]. [facility] unfortunately does not have the capacity to perform paracentesis if deemed necessary. Given this illness provider would like patient be transferred to [facility] for small bowel obstruction management, general surgery consultation. Discussed with Dr. Smith who accepted patient for transfer. Patient will be transferred to [facility]. PROCEDURES: Unless otherwise noted below, none [...] signed) Emergency Medicine Provider JOSE Collins 09/09/232117 [facility] 09-09-2023 Physician Emergency department Note Emergency Department Encounter [facility] ED Patient: Carolina Bonilla : 1975 Date of Evaluation: 09/09/2023 ED Supervising Physician: Lenny Macdonald MD I independently examined and evaluated Carolina Bonilla. This will serve as my Supervisory note as the founder chairman and chief creative officer of record and shared attestation. I did [...] inpatient medicine team they recommend transfer to [facility] as they do not have IRP [...] [employer] Lenny Macdonald MD 09/12/23 1500 [facility] [email or web address] Phone: 03-24-2023 Miscellaneous Notes Attempted to contact [...] advise. Miladis Blair documented in this encounter [facility] 01-27-2023 Miscellaneous Notes Pt notified. Melisa [...] medication names. Please send RX to [facility] in [place] and advise patient when these have been ordered by provider per patient request. Patient has been identified by name and birthdate. Duration of symptoms: months Person calling: self Call patient at: at home [phone] (home) [phone] (cell) Was an appointment scheduled: No Closing statement: Results or non-symptom based questions: Thank you for calling [facility], your call will be returned within the next business day. [employer] documented in this encounter [facility] 01-25-2023 Miscellaneous Notes January 26, 2023 PID: [id number] Carolina Bonilla [facility] [address] [address] Dear Jackie Bonilla, Your recent breast imaging [...] who ordered/prescribed your screening mammogram: Please call [phone] or [phone] to schedule an appointment for your additional [...] and reports are kept on file at [facility] as part of your permanent medical record, and are available for your continuing care. Thank you for allowing us to help in meeting your health care needs. Sincerely, Dr. Estrada Interpreting Radiologist [facility] (Additional imaging) documented in this encounter [facility] 12-02-2022 Note HNO ID: [id number] Author: JOSE Vega Service: ? Author Type: Physician Social Media Community Manager Type: Progress Notes Filed: 12/02/2022 1:01 PM Note Text: This note was created using [employer]. Subjective Carolina Bonilla is a 47 year [...] HISTORY OF 2018 liver bx [facility] ALLERGIES Aspirin, Bupropion, Codeine, Prednisone, and [...] and questions were (more content not included)... [facility] 12-02-2022 History of Presen t illness Narrative Images from the original note were not included. This note was created using [employer]. Subjective Carolina Bonilla is a 47 [...] HISTORY OF 2018 liver bx [facility] ALLERGIES Aspirin, Bupropion, Codeine, Prednisone, and [...] evaluation. JOSE Vega documented in this encounter [facility] 10-02-2022 Miscellaneous Notes Left message of results on secure voicemail. Kayleen Rapp MA Please call patient and inform that her wound culture is negative. She can quit taking the ATB. She needs to follow up as directed. documented in this encounter [facility] 09-29-2022 Influenza virus A and B RNA and SARS-CoV-2 (COVID-19) N gene panel PHYLLIS+probe (Resp) COVID 19 RESULT: SARS-CoV-2 (Agent of COVID-19) Not Detected by RT-PCR or equivalent method. lyndon [id number] (EMILY)_EUA This test was developed and its performance characteristics determined by [facility]'s [facility] [place]. This test has been authorized by FDA [...] 2019. Test performed by [facility], [facility] [place], [address] [place] [address]. INFLUENZA A PCR: Negative for Influenza A by RT-PCR INFLUENZA B PCR: Negative for Influenza B by RT-PCR [facility] Diagnosis Bacterial skin infection- Primary Unspecified local infection of skin and subcutaneous tissue Acne vulgaris Other acne Chronic midline low back pain with bilateral sciatica [facility] Diagnosis Encounter for screening mammogram for breast cancer [facility] [place] [facility] Diagnosis Wound check, abscess- Primary Encounter for other specified aftercare [facility] Diagnosis Dermatitis- Primary Contact dermatitis and other eczema, due to unspecified cause [facility]* Diagnosis Chronic midline low back pain with bilateral sciatica [facility]* Diagnosis Cellulitis of chin- Primary Cellulitis and abscess of face Picking own skin Other disorder of impulse control URI, acute Acute upper respiratory infections of unspecified site [facility] Diagnosis Skin infection- Primary Unspecified local infection of skin and subcutaneous tissue [facility]* Diagnosis Cellulitis of chin Cellulitis and abscess of face documented in this encounter [facility] note* Diagnosis Low back pain, unspecified back pain laterality, unspecified chronicity, unspecified whether sciatica present documented in this encounter [facility] note* Diagnosis Encounter for screening mammogram for breast cancer documented in this encounter [facility] note* Diagnosis Small bowel obstruction (HCC)- Primary Unspecified intestinal obstruction Small bowel obstruction (HCC) Unspecified intestinal obstruction Polysubstance use disorder documented in this encounter [facility] for referral (narrative)* Diagnostic Procedure Only (Routine) - Pending Review Specialty Diagnoses / Procedures Referred By Marivel cao Referred To Contact [facility] Diagnoses Encounter for screening mammogram for breast cancer Procedures JEANETH SCREENING SCREENING MAMMOGRAPHY BI 2-[place] [address] [place] [address] [facility] [address] [place] [address] Referral ID Status Reason Start Date Expiration Date Visits Requested Visits Authorized [id number] Pending Review Auto-Generat ed Referral 03/24/2022 04/23/2023 1 1 T [facility] for referral (narrative)* Diagnostic Procedure Only (Routine) - Closed Specialty Diagnoses / Procedures Referred By Marivel cao Referred To Contact [facility] Diagnoses Encounter for screening mammogram for breast cancer Procedures JEANETH SCREENING SCREENING MAMMOGRAPHY BI 2-VIEW BREAST INC Dacia Rice MD [address] [place] [address] [facility] [address] [place] [address] Referral ID Status Reason Start Date Expiration Date V isits Requested Visits Authorized [id number] Closed Auto-Generate d Referral 03/24/2022 04/23/2023 1 1 T [facility] for visit Narrative* Diagnostic Procedure Only (Routine) - Closed Specialty Diagnoses / Procedures Referred By Marivel cao Referred To Contact [facility] Diagnoses Encounter for screening mammogram for breast cancer Procedures JEANETH SCREENING SCREENING MAMMOGRAPHY BI 2-VIEW BREAST INC Dacia Rice MD [address] [place] [address] [facility] [address] [place] [address] Referral ID Status Reason Start Date Expiration Date V isits Requested Visits Authorized [id number] Closed Auto-Generate d Referral 03/24/2022 04/23/2023 1 1 [facility] Summary Purpose Family History No Family History Records FoundNo Family History Records FoundNo Family History Records FoundNo Family History Records FoundNo Family History Records Found Advance Directives No Advanced Directives Records FoundDocuments on File Type Date Recorded Patient Member Service Representative Expl anation Advance Directive(s) 08/05/2018 8:00 PM Advance Directive(s) 08/04/2018 9:24 AM Documents on File Type Date Recorded Patient Member Service Representative Expl anation Advance Directive(s) 08/05/2018 8:00 PM [...] Procedures CONSULT TO DERMATOLOGY Tresa Wells APRN.CNP [address] [place] [address] Referral ID Status Reason Start Date Expiration Date Visits Requested Visits Authorized [id number] Ref Not Required PCP Requested Referral 03/11/2022 03/11/2023 1 1 Specialty Diagnoses / Procedures Referred By Contac t Referred To Contact Saima Tan MD [address] [place] [address] Referral ID Status Reason Start Date Expiration Date V isits Requested Visits Authorized [id number] Pending Review 1 1 Additional Source Comments INFORMATION SOURCE (unrecogn ized section and content) DATE CREATED AUTHOR AUTHOR'S ORGANIZ ATION 09/03/2018 [facility] DATE CREATED AUTHOR AUTHOR'S ORGANIZ ATION 11/10/2021 [facility] DATE CREATED AUTHOR AUTHOR'S ORGANIZ ATION 09/24/[address] [facility] DATE CREATED AUTHOR AUTHOR'S ORGANIZ ATION 10/02/2023 [facility] Source Comments (unrecognize d section and content) In the event this informatio n is protected by the Federal Confidentiality of Alcohol and Drug Abuse Patient Records regulations: The Federal rules restrict any use of the information to criminally investigate or prosecute any alcohol or drug abuse patient.[facility] the event this information is protected by the Federal Confidentiality of Alcohol and Drug Abuse Patient Records regulations: The Federal rules restrict any use of the information to criminally investigate or prosecute any alcohol or drug abuse patient.[facility] the event this information is protected by the Federal Confidentiality of Alcohol and Drug Abuse Patient Records regulations: The Federal rules restrict any use of the information to criminally investigate or prosecute any alcohol or drug abuse patient.[facility] the event this information is protected by the Federal Confidentiality of Alcohol and Drug Abuse Patient Records regulations: The Federal rules restrict any use of the information to criminally investigate or prosecute any alcohol or drug abuse patient.[facility] Hospital[facility] the event this information is protected by the Federal Confidentiality of Alcohol and Drug Abuse Patient Records regulations: The Federal rules restrict any use of the information to criminally investigate or prosecute any alcohol or drug abuse patient.[facility] Hospital[facility] the event this information is protected by the Federal Confidentiality of Alcohol and Drug Abuse Patient Records regulations: The Federal rules restrict any use of the information to criminally investigate or prosecute any alcohol or drug abuse patient.[facility] Hospital[facility] the event this information is protected by the Federal Confidentiality of Alcohol and Drug Abuse Patient Records regulations: The Federal rules restrict any use of the information to criminally investigate or prosecute any alcohol or drug abuse patient.[facility] Hospital[facility] the event this information is protected by the Federal Confidentiality of Alcohol and Drug Abuse Patient Records regulations: The Federal rules restrict any use of the information to criminally investigate or prosecute any alcohol or drug abuse patient.[facility] Hospital[facility] the event this information is protected by the Federal Confidentiality of Alcohol and Drug Abuse Patient Records regulations: The Federal rules restrict any use of the information to criminally investigate or prosecute any alcohol or drug abuse patient.[facility] HospitalIn the event this information is protected by the Federal Confidentiality of Alcohol and Drug Abuse Patient Records regulations: The Federal rules restrict any use of the information to criminally investigate or prosecute any alcohol or drug abuse patient.[facility] HospitalIn the event this information is protected by the Federal Confidentiality of Alcohol and Drug Abuse Patient Records regulations: The Federal rules restrict any use of the information to criminally investigate or prosecute any alcohol or drug abuse patient.[facility] HospitalIn the event this information is protected by the Federal Confidentiality of Alcohol and Drug Abuse Patient Records regulations: The Federal rules restrict any use of the information to criminally investigate or prosecute any alcohol or drug abuse patient.[facility] HospitalIn the event this information is protected by the Federal Confidentiality of Alcohol and Drug Abuse Patient Records regulations: The Federal rules restrict any use of the information to criminally investigate or prosecute any alcohol or drug abuse patient.[facility] HospitalIn the event this information is protected by the Federal Confidentiality of Alcohol and Drug Abuse Patient Records regulations: The Federal rules restrict any use of the information to criminally investigate or prosecute any alcohol or drug abuse patient.[facility] HospitalIn the event this information is protected by the Federal Confidentiality of Alcohol and Drug Abuse Patient Records regulations: The Federal rules restrict any use of the information to criminally investigate or prosecute any alcohol or drug abuse patient.[facility] HospitalIn the event this information is protected by the Federal Confidentiality of Alcohol and Drug Abuse Patient Records regulations: The Federal rules restrict any use of the information to criminally investigate or prosecute any alcohol or drug abuse patient.[facility] HospitalIn the event this information is protected by the Federal Confidentiality of Alcohol and Drug Abuse Patient Records regulations: The Federal rules restrict any use of the information to criminally investigate or prosecute any alcohol or drug abuse patient.[facility] HospitalIn the event this information is protected by the Federal Confidentiality of Alcohol and Drug Abuse Patient Records regulations: The Federal rules restrict any use of the information to criminally investigate or prosecute any alcohol or drug abuse patient.[facility] HospitalIn the event this information is protected by the Federal Confidentiality of Alcohol and Drug Abuse Patient Records regulations: The Federal rules restrict any use of the information to criminally investigate or prosecute any alcohol or drug abuse patient.[facility] HospitalIn the event this information is protected by the Federal Confidentiality of Alcohol and Drug Abuse Patient Records regulations: The Federal rules restrict any use of the information to criminally investigate or prosecute any alcohol or drug abuse patient.[facility] HospitalIn the event this information is protected by the Federal Confidentiality of Alcohol and Drug Abuse Patient Records regulations: The Federal rules restrict any use of the information to criminally investigate or prosecute any alcohol or drug abuse patient.[facility] Reason for Visit (unrecogniz ed section [...] (HCC) Procedures . Cindi Smith MD [address] [address] [facility] 7w Respiratory [address] [place] [address] Referral ID Status Reason Start Date Expiration Date Visits Re quested Visits Authorized [id number] 1 1 Care Teams (unrecognized sec tion and content) Line Painting Machine Operator Relationship Specialty Start Date End Date Dacia Leo MD [address] [place] [address] PCP - General Family Practice 08/24/10 Line Painting Machine Operator Relationship Specialty Start Date End Date Dacia Leo MD [address] [place] [address] PCP - General Family Practice 08/24/10 Line Painting Machine Operator Relationship Specialty Start Date End Date Dacia Leo MD [address] [place] [address] PCP - General Family Practice 08/24/10 Line Painting Machine Operator Relationship Specialty Start Date End Date Dacia Leo MD [address] [place] [address] PCP - General Family Practice 08/24/10 Line Painting Machine Operator Relationship Specialty Start Date End Date Dacia Leo MD [address] [place] [address] PCP - General Family Practice 08/24/10 Line Painting Machine Operator Relationship Specialty Start Date End Date Dacia Leo MD [address] [place] [address] PCP - General Family Practice 08/24/10 Line Painting Machine Operator Relationship Specialty Start Date End Date Dacia Leo MD [address] [place] [address] PCP - General Family Practice 08/24/10 Line Painting Machine Operator Relationship Specialty Start Date End Date Dacia Leo MD [address] [place] [address] PCP - General Family Practice 08/24/10 Line Painting Machine Operator Relationship Specialty Start Date End Date Dacia Leo MD [address] [place] [address] PCP - General Family Practice 08/24/10 Line Painting Machine Operator Relationship Specialty Start Date End Date Dacia Leo MD [address] [place] [address] PCP - General Family Medicine 08/24/10 Line Painting Machine Operator Relationship Specialty Start Date End Date Dacia Leo MD [address] [place] [address] PCP - General Family Medicine 08/24/10 Line Painting Machine Operator Relationship Specialty Start Date End Date Dacia Leo MD [address] [place] [address] PCP - General Family Medicine 08/24/10 Line Painting Machine Operator Relationship Specialty Start Date End Date aDcia Leo MD [address] [place] [address] PCP - General Family Medicine 08/24/10 Line Painting Machine Operator Relationship Specialty Start Date End Date Dacia Leo MD [address] [place] [address] PCP - General Family Medicine 08/24/10 Line Painting Machine Operator Relationship Specialty Start Date End Date Dacia Leo MD [address] [place] [address] PCP - General Family Medicine 08/24/10 Line Painting Machine Operator Relationship Specialty Start Date End Date Dacia Leo MD [address] [facility] [place] [address] PCP - General Family Medicine 08/24/10 Line Painting Machine Operator Relationship Specialty Start Date End Date Dacia Leo MD [address] [place] [address] PCP - General Family Medicine 08/24/10 Scheduled [...] sedation for opioid reversal - MUST notify application helper provider immediately after first dose, may give [...] - Provider: Haritha Martinez RN) sodium chloride (Tynan) 0.65 % nasal spray 2 spray 2 [...] BE BASED ON THE PRIMARY CLINICAL RECORDS. [employer] [facility]. provides no warranty or guarantee of the accuracy or completeness of information in this document.
== END 2023-10-08 13:20 | disposition home or self-care (01) | DRG 280 ==
LOC: ED 18:52 → MS3 10-07 07:29
PROVIDERS: Admitting Provider Student in an Organized Health Care Education/Training Program; Emergency Provider Student in an Organized Health Care Education/Training Program; PCP Family Medicine; Visit Provider Internal Medicine
DX: K70.11 Alcoholic hepatitis with ascites (principal); K70.31 Alcoholic cirrhosis of liver with ascites; D69.6 Thrombocytopenia, unspecified; K76.6 Portal hypertension; J44.9 Chronic obstructive pulmonary disease, unspecified; F10.20 Alcohol dependence, uncomplicated; F32.A Depression, unspecified; E87.6 Hypokalemia; K82.8 Other specified diseases of gallbladder; K21.9 Gastro-esophageal reflux disease without esophagitis; F17.210 Nicotine dependence, cigarettes, uncomplicated; Z68.36 Body mass index [BMI] 36.0-36.9, adult; E66.9 Obesity, unspecified; N13.2 Hydronephrosis with renal and ureteral calculous obstruction; Z91.199 Patient's noncompliance with other medical treatment and regimen due to unspecified reason; Z79.899 Other long term (current) drug therapy
CPT/HCPCS: 36415; 49083; 74177; 76705; 80048; 80053; 80076; 82945; 83615; 83690; 83735; 84100; 84157; 85025; 85610; 87077; 87086; 87088; 87186; 88108; 88305; 88313; 89050; 99284; J7030; Q9967; A4216; J2405

== ENCOUNTER 2023-11-05 18:45 | Emergency (ER) | payer MEDICAID, SELFPAY ==
[2023-11-05 18:46] VITALS: BP 122/77; PULSE 68; RESP 14; TEMP 36.2; O2SAT 99; BMI 38.1
--- NOTE | 2023-11-05 19:29 | EDS_ITS ---
HPI HPI - GI History of Present Illness Chief Complaint: Abd Pain Informant: patient Narrative Narrative: Patient presents with chief complaint of, I do not feel well. It takes quite a bit of questioning to try to get details from the patient. She has not been feeling well for months. She states she thinks her abdomen needs to be drained. She has a history of cirrhosis. It is thought to be related to alcohol but states she does not drink now. She used to drink when she was younger. She has had a paracentesis about twice. She states last 1 was a month ago. She was admitted. She states they stop some meds and started her on new meds. This confused her so much that she decided she would just stop all her medicines. Therefore she is taken none of her medicines for the last month. She states she has not eaten anything in a few weeks because she cannot eat. When I asked when she last ate she states right before she came in here. No blood in the stool. She gets nauseated but is never vomited. She denies coughing or trouble breathing but states she just does not feel well and her boyfriend is sick with a cough runny nose and fevers. PFSH PFSH Medical History Acute insomnia Alcohol abuse Anemia Anxiety and depression Ascites Chronic pain Cirrhosis of liver COPD (chronic obstructive pulmonary disease) Depression Gastric reflux GERD (gastroesophageal reflux disease) Hepatitis History of diverticulitis History of edema History of pain when walking History of renal disease Hyperbilirubinemia Kidney stones Loss of consciousness Low iron Marijuana use Migraine headache MRSA infection Obesity Open wound Polysubstance abuse Rash Restless legs Seizures Shortness of breath on exertion Sleep apnea Smoker Substance abuse Thrombocytopenia Tobacco use Home Medications desvenlafaxine 100 mg tablet,extended release 24 hour 100 mg PO DAILY NERVE PAIN 02/20/19 [History Last Taken Unknown] Vitamin D3 1,250 mcg OTHER QWEEK SUPPLEMENT 05/20/22 [History Last Taken Unknown] topiramate 100 mg tablet 100 mg PO BID PER GASTRO 05/20/22 [History Last Taken Unknown] trazodone 100 mg tablet 100 mg PO QHS SLEEP #1 TAB 05/21/22 [Rx Last Taken Unknown] aripiprazole 30 mg tablet 30 mg PO DAILY 09/14/22 [History Last Taken Unknown] gabapentin 100 mg capsule 100 mg PO Q12H 07/20/23 [History Last Taken Unknown] furosemide 20 mg tablet (Lasix) 20 mg PO DAILY #90 tabs 10/07/23 [Rx Last Taken Unknown] lactulose 20 gram/30 mL oral solution 20 g (30 mL) PO TID 30 days #2,880 mL 10/07/23 [Rx Last Taken Unknown] nadolol 20 mg tablet 20 mg PO DAILY 30 days #30 tabs 10/07/23 [Rx Last Taken Unknown] spironolactone 50 mg tablet 75 mg (1.5 x 50 mg) PO DAILY 30 days #45 tabs 10/07/23 [Rx Last Taken Unknown] furosemide 20 mg tablet (Lasix) 20 mg PO DAILY #30 tabs 11/05/23 [Rx Last Taken Unknown] nadolol 20 mg tablet 20 mg PO DAILY #30 tabs 11/05/23 [Rx Last Taken Unknown] spironolactone 50 mg tablet 75 mg (1.5 x 50 mg) PO DAILY #45 tabs 11/05/23 [Rx Last Taken Unknown] Allergy/AdvReac Type Severity Reaction Status Date / Time bupropion HCl Allergy SEIZURES Verified 11/05/23 18:47 [From Wellbutrin] codeine Allergy Rash Verified 11/05/23 18:47 Family History Mother Diabetes Father Cancer HX Throat CA. 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, marijuana, heroin and methamphetamine seatbelt use: always do you feel safe at home: Yes ROS ROS ED ROS Narrative A complete review of systems was performed and is negative except as documented in the history of present illness. Some specific details below. Constitutional: No recent fevers or chills. She does have some malaise. EYE: No visual complaints or pain. ENT: No difficulty swallowing. No swelling. No pain. No GERD. She states she is physically able to swallow but just does not feel like eating. CV: No chest pain or palpitations. Respiratory: No dyspnea. No hemoptysis. But she states her stomach feels big and it is hard to take a deep breath because of that. But she has no pain with a deep breath. GI: Please see history of present illness. Abdominal distention slowly worsening for the last month. No sudden onset. No sudden pain. She states sometimes it sore but sometimes it is not. : No frequency dysuria or hematuria. Musculoskeletal: No recent trauma. No pains. Skin: No rash. Nondiaphoretic. Neuro: No weakness or numbness. Endocrine: No polyuria or polydipsia. EXAM Physical Exam Narrative Exam Narrative: CONSTITUTIONAL: Patient is nontoxic in appearance. The patient looks comfortable. She is laying almost flat back bent with the head of the bed up about 15 degrees. Breathing normally. HEENT: No notable trauma. Mucous membranes moist. No sinus tenderness. No indication of pain with swallowing. EYES: No conjunctival injection. No noted icterus. CARDIOVASCULAR: Regular rate. Regular rhythm. No notable murmur. No JVD. RESPIRATORY: No respiratory distress. Breathing is unlabored. No wheezes. No rhonchi. No rales. No pain with a deep breath. GASTROINTESTINAL: Abdomen is somewhat distended. But her umbilicus is still deep. Is not at all distended. No vascularity. Bowel sounds are normal. Patient does not have any tenderness. There is absolutely no clinical indication of a spontaneous bacterial peritonitis. GENITOURINARY: No tenderness over the bladder. No CVA tenderness. MUSCULOSKELETAL: Atraumatic. Mild bilateral equal peripheral edema. This is evidently baseline and not worse. No cord. No tenderness along the deep venous system. No asymmetry. NEUROLOGICAL: Patient is alert and appropriate. No focal deficit noted. SKIN: No noted rashes. No diaphoresis. PSYCHIATRIC: Patient is calm. Mood is appropriate. Const Vital Signs: 11/05/23 18:46 Temperature 97.1 F L Temperature Source Temporal Pulse Rate 68 Respiratory Rate 14 Blood Pressure 122/77 H Blood Pressure Mean 92 Pulse Ox 99 Oxygen Delivery Method Room Air MDM MDM MDM Narrative Medical decision making narrative: My independent interpretation of the patient's single view AP chest x-ray shows no acute process. It does not look like a shallow inspiration. Final reading is pending. Final reading is normal examination of the chest. Patient's CBC is at baseline. She is anemic but her white count is normal. Mildly low platelets. But this is not related change from recent tests. Patient's electrolytes show nonspecific elevation of chloride. Renal function is preserved. Glucose is overall normal. Patient's liver function test show mild elevation of alk phos and total bilirubin but again at her baseline. Her lipase is negative. Serum is negative. Urine is not a clean-catch. But there is no's symptoms of UTI or sign of that. There are some calcium oxalate crystals but her symptoms do not match a kidney stone. I do not think she needs an acute CAT scan for oxalate crystals in the urine. I talked with the patient. She is not hypoxic. Her breathing is normal. Her abdomen is nontender. I think if we get her back on her meds we will get her better. I will start her again on furosemide, nadolol and spironolactone. 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 Lab Data Attestation: I reviewed the patient's lab results. Labs: Laboratory Results - last 24 hr 11/05/23 11/05/23 19:50 20:10 WBC 5.0 RBC 4.02 L Hgb 9.4 L Hct 31.0 L MCV 77.1 L MCH 23.4 L MCHC 30.3 L RDW Std Deviation 58.3 H RDW Coeff of Katalina 20.6 H Plt Count 69 L MPV 9.9 Immature Gran % (Auto) 0.200 Neut % (Auto) 57.9 Lymph % (Auto) 29.7 [place] % (Auto) 8.4 Eos % (Auto) 3.2 Baso % (Auto) 0.6 Absolute Neuts (auto) 2.9 Absolute Lymphs (auto) 1.48 Nucleated RBC % 0 Differential Comment SCANNED Platelet Estimate MKD DEC Anisocytosis 2+ Microcytosis 2+ PT 19.5 H INR 1.6 Sodium 141 Potassium 3.8 Chloride 114 H Carbon Dioxide 25.0 Anion Gap 2 L BUN 12 Creatinine 0.88 Estim Creat Clear Calc 81.94 Est GFR (MDRD) Af Amer 88 Est GFR (MDRD) Non-Af 73 BUN/Creatinine Ratio 13.7 Glucose 113 H Calcium 9.0 Total Bilirubin 1.80 H AST 98 H ALT 52 Alkaline Phosphatase 139 H Total Protein 6.8 Albumin 2.5 L Globulin 4.3 H Albumin/Globulin Ratio 0.6 L Lipase 45 Serum , Qual NEGATIVE Urine Color Yellow Urine Clarity Sl. Cloudy Urine pH 6.0 Ur Specific [place] 1.025 Urine Protein 30 H Urine Glucose (UA) Normal Urine Ketones 5 H Urine Occult Blood 50 H Urine Nitrite Negative Urine Bilirubin 1 H Urine Urobilinogen 8 H Ur Leukocyte Esterase 100 H Urine RBC 0-5 SEEN Urine WBC 5-10 SEEN Ur Squamous Epith Cells 10-25 SEEN Calcium Oxalate Crystal 2+ Urine Bacteria RARE Urine Mucus 1+ Radiography Diagnostic Testing: Clinical Impression(s) from Imaging Studies Chest X-Ray 11/05/23 20:00 IMPRESSION: Normal x-ray examination of the chest. Electronically Signed: Lori Hallman MD at 20:31 EST Reading Location ID and State: [address] [place] [address] , Service support , Discharge Plan Triage Chief Complaint: Abd Pain ED Provider: Jake Harding Dx/Rx/DC Orders Clinical Impression: Ascites, Variable compliance with medication therapy, Cirrhosis of liver Instructions: Cirrhosis of Liver Dc, ED Ascites Prescriptions: New furosemide [Lasix] 20 mg tablet 20 mg PO DAILY Qty: 30 0RF spironolactone 50 mg tablet 75 mg PO DAILY Qty: 45 0RF nadolol 20 mg tablet 20 mg PO DAILY Qty: 30 0RF No Action desvenlafaxine 100 mg tablet extended release 24hr 100 mg PO DAILY Vitamin D3 1,250 mcg OTHER QWEEK Rx Instructions: TAKES ON MODAY BY MOUTH topiramate 100 mg tablet 100 mg PO BID Rx Instructions: BEFORE MEALS trazodone 100 mg tablet 100 mg PO QHS Qty: 1 0RF aripiprazole 30 mg tablet 30 mg PO DAILY nadolol 20 mg tablet 20 mg PO DAILY 30 Days Qty: 30 2RF Rx Instructions: Hold for heart less than 50 or systolic blood pressure less than 100 mmHg. spironolactone 50 mg tablet 75 mg PO DAILY 30 Days Qty: 45 2RF lactulose 20 gram/30 mL solution 20 g PO TID 30 Days Qty: 2880 2RF Rx Instructions: And adjust the frequency to have him goal of 3 bowel movements per day furosemide [Lasix] 20 mg tablet 20 mg PO DAILY Qty: 90 0RF gabapentin 100 mg capsule 100 mg PO Q12H Patient Comments: Take 1 capsule by mouth twice daily pt taking as needed. Primary Care Provider: Ang Acosta Referrals: Ang Acosta MD [Primary Care Provider] - 3-5 Days Friend,DO José [Med Staff - Active Staff] - 3-5 Days Disposition Disposition: Home, Self Care
--- OUTSIDE RECORDS SUMMARY | 2023-11-05 19:45 | XMS RPT_ITS | CCD ---
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 1 at : [phone] [facility] 09-15-2023 Note Formatting of this n ote might be different from the original. Social work follow up on discharge. SHELL notified by patients bedside RN patient needs assist with transport to home. SW spoke to patient to confirm address on file is correct. She reports she typically will use her [employer] [facility]ohnny for transport and uses their uber/lyft service. SW placed call to [employer] transport [phone]. Transport arranged for greens picker at [address] [place] [address] between 4:12-6:12pm. They will call the unit 15 minutes prior to their arrival . Ref # [id number]. lumber yard worker updated patients bedside RN, who will update the patient. [facility] 09-15-2023 Note Formatting of this n [...] service. SW placed call to [facility] [phone]. Transport arranged for greens picker at [address] between 4:12-6:12pm. They will call the unit 15 minutes prior to their arrival . Ref # [id number]. lumber yard worker updated patients bedside RN, who will update the patient. [facility] 09-15-2023 Miscellaneous Notes Social work follow up on discharge. SW notified by patients bedside RN patient needs assist with transport to home. SW spoke to patient to confirm address on file is correct. She reports she typically will use her [employer] [facility]ohnny for transport and uses their uber/lyft service. SW placed call to [employer] [phone]. Transport arranged for greens picker at [address] between 4:12-6:12pm. They will call the unit 15 minutes prior to their arrival . Ref # [id number]. lumber yard worker updated patients bedside RN, who [...] Initial Assessment Date: 09/12/2023 Patient Name: Carolina Hightower : 1975 Patient Information Source of Information: Patient Cognition/Language: WFL - Within Functional Limits Permission given to speak with patient field sales representative/caregiver as indicated: Yes Confirmation of Payer with patient/family: Yes Payer Name: [employer] Medicaid [place]: No Confirmation of Primary Care Physician: Confirmed PCP Name: Dr. Elderbrach- [facility] Seen in last 2 years?: Yes [...] TCC will follow. documented in this encounter [facility] 09-15-2023 Note Discharge Summary Carolina Hightower : 1975 ADMIT DATE: 09/09/2023 DISCHARGE DATE: [...] SIGNIFICANT DIAGNOSTIC STUDIES: US guided abdominal paracentesis [[id number]] Collected: 09/14/231134 Order Status: Completed Updated: 09/14/231136 Narrative: Patient Name: CAROLINA HIGHTOWER : 1975 Exam Date/Time: 09/14/2023 09:36 Procedure: [...] 11:36 AM EST US guided abdominal paracentesis [[id number]] Collected: 09/10/23853 Order Status: Completed Updated: 09/10/23854 Narrative: Patient Name: CAROLINA HIGHTOWER : 1975 Exam Date/Time: 09/10/2023 08:29 Proced (more content not included)... [facility] 09-15-2023 History of Presen t illness [...] (S/p paracentesis 09/14 with 1.7L removed) Ascites Surveillance Investigator Strength: Not Performed Nutrition Assessment: 47yo F [...] On: Kcal/kg Weight Used for Energy Requirements: Tennyson Weight for Energy Calculation (kg): 50 kg Total Energy Requirements (kcals/day): 27-32 kcal/kg = 2588-1935 kcal/day Weight Used for Protein Requirements: Tennyson Weight in Kg Used for Protein Requirements: 50 kg Estimated Total Protein (g/day): 1.2-1.4 g/kg = 60-70 g/day Estimated Daily Total Fluid (ml/day): per Nutrition Related Findings: Danilo = 20, GI [...] lb) (stated) % Weight Change (Calculated): 5 Tennyson Body Weight (lbs) (Calculated): 110 lbs Tennyson Body Weight (Kg) (Calculated): 50 kg % Tennyson Body Weight (Calculated): 190.8 % BMI (kg/m2) [...] Continue current diet Latha Lester RD Contact: *[phone] Images from the original note were not [...] 3.7 3.4* CL 113* 110* 107 CO2 * * BUN 2* 4* 4* CREATININE 0.68 0.62 [...] 1,000 mL enema, 1 enema, Rectal, TID ltokvuwz-bzqcmrxyxt-tjuhfmfrh, , Topical, TID pantoprazole (ProtoNix) 40 mg [...] Emergency Contact Information Primary Emergency Contact: John Hightower Relation: Spouse Secondary Emergency Contact: Vannesa Hightower Mobile Relation: Daughter Saima Tan MD Division of Hospitalist Medicine [facility] Images from the original note were not included. Hospitalist Progress Note 09/14/2023 Subjective: Admit Date: 09/09/2023 PCP: No primary care provider on file. Room#: W6-753/W8-484 A Brief Hospital course: Patient is 47-year-old [...] 1,000 mL enema, 1 enema, Rectal, TID pqwyhbwj-fvvubolslo-ijbifkhti, , Topical, TID pantoprazole (ProtoNix) 40 mg [...] Emergency Contact Information Primary Emergency Contact: John Hightower Relation: Spouse Secondary Emergency Contact: Vannesa Hightower Mobile Relation: Daughter Saima Tan MD Division of Hospitalist Medicine [facility] Images from the original note were not [...] Labs 09/11/23 0030 09/12/23 0112 09/13/23 012 WBC 7.9 5.1 4.4 RBC 3.80 3.50* [...] Emergency Contact Information Primary Emergency Contact: John Hightower Relation: Spouse Secondary Emergency Contact: Vannesa Hightower Mobile Relation: Daughter Saima Tan MD Division of Hospitalist Medicine [facility] Images from the original note were not [...] data in the 24 hours ending 09/12/23 1653 No intake/output data recorded. No intake/output data [...] Surgery PGY-1 09/12/23 4:53 PM Pager # [phone] This note may have been dictated using Enir[employer] Medical Practice Edition 2.6 and/or Rezdy Voice Recognition Feature. The document was proofread; however, unrecognized voice recognition siebel administrator errors may be present. Associated attestation - [...] results, and face to face with Carolina Hightower discussing the diagnosis and importance of compliance [...] of Trauma Department of Surgery [facility] ~~~~~~~~~~~~~~~~~~~~~~~~~~~~~~~~ ~~~~~~~~~~~~~~~~~~~~~~~~~~~~~ This note may have been dictated using Eniram Medical Practice Edition 2.6 and/or Rezdy Voice Recognition Feature. The document was proofread; however, unrecognized voice recognition siebel administrator errors may be present. [facility] ADMISSION MEDICATION RECONCILIATION Date: 09/12/23 Room:[facility] A Patient Name: Carolina Hightower Allergies: Aspirin, Bupropion, Codeine, and Prednisone Age: 47 y.o. Sex: female Note: New information has been obtained regarding the patient s medications. The medication reconciliation has been updated to reflect this. Please consider making these changes/additions if appropriate: Recommendations: *FYI* - did not discuss home meds with patient d/t disorientation. Updated home med list based on last fill dates from patient's [facility]. Home medications to restart if there [...] Time: 4:15 PM 09/12/2023 4:18 PM Kaylin Camarillo, PharmMelodie Nutrition Assessment Type and Reason for [...] in energy intake (Comment) (Pt presented on 1216 AM and was NPO then advanced to [...] muscle mass loss Fluid Accumulation: Mild Ascites Surveillance Investigator Strength: Not Performed Nutrition Assessment: 47yo F [...] On: Kcal/kg Weight Used for Energy Requirements: Tennyson Weight for Energy Calculation (kg): 50 kg Total Energy Requirements (kcals/day): 27-32 kcal/kg = 2458-6331 kcal/day Weight Used for Protein Requirements: Tennyson Weight in Kg Used for Protein Requirements: 50 kg Estimated Total Protein (g/day): 1.2-1.4 g/kg = 60-70 g/day Estimated Daily Total Fluid (ml/day): per MD Nutrition Related Findings: Adnilo = 23, GI = bm 09/11, abdomen [...] 05/26/22 198#) % Weight Change (Calculated): 2.8 Tennyson Body Weight (lbs) (Calculated): 110 lbs Tennyson Body Weight (Kg) (Calculated): 50 kg % Tennyson Body Weight (Calculated): 186.9 % BMI (kg/m2) [...] soon to determine Latha Lester RD Contact: *[phone] Images from the original note were not included. Hospitalist Progress Note 09/12/2023 Subjective: Admit Date: 09/09/2023 PCP: No primary care provider on file. Room#: W7-726/W7-680 A Brief Hospital course: Patient is 47-year-old [...] Emergency Contact Information Primary Emergency Contact: John Hightower Relation: Spouse Saima Tan MD Division of Hospitalist Medicine [employer] Images from the original note were not included. Hospitalist Progress Note 09/11/2023 Subjective: Admit Date: 09/09/2023 PCP: No primary care provider on file. Room#: W7-726/W7726 A Interval History: Patient is 47-year-old with [...] ending 09/11/23 1344 LABS: CBC: Recent Labs 09/09/23184709/10/2322 09/11/23 0030 WBC 9.4 8.2 7.9 RBC 4.56 4.05 3.80 HGB 10.4* 9.1* 8.6* HCT 32.4* 28.8* 27.4* MCV 71.1* 71.2* 72.2* RDW 21.6* 21.4* 21.6* PLT 95* 79* 61* BMP: Recent Labs 09/09/23184709/10/23 0609/11/23 0030 NA 136 138 137 K 4.3 [...] 17.0* INR 1.7* CARDIAC ENZYMES: Recent Labs 09/09/23184709/09/23 2205 09/10/23 0105 TROPONINI <0.012 <0.012 <0.012 [...] Emergency Contact Information Primary Emergency Contact: John Hightower Relation: Spouse Judah Valentine MD Division of Hospitalist Medicine [facility] Nutrition rescreen completed. Patient is NPO/Clear liquid [...] to follow closely. documented in this encounter [facility] 09-15-2023 Hospital course Narrative Discharge Summary Carolina Hightower : 1975 ADMIT DATE: 09/09/2023 DISCHARGE DATE: [...] SIGNIFICANT DIAGNOSTIC STUDIES: US guided abdominal paracentesis [[id number]] Collected: 09/14/23 1135 Order Status: Completed Updated: 09/14/231136 Narrative: Patient Name: CAROLINA HIGHTOWER : 1975 Exam Date/Time: 09/14/2023 09:36 Procedure: [...] 11:36 AM EST US guided abdominal paracentesis [[id number]] Collected: 09/10/23853 Order Status: Completed Updated: 09/10/23854 Narrative: Patient Name: CAROLINA HIGHTOWER : 1975 Exam Date/Time: 09/10/2023 08:29 Procedure: US GUIDED ABDOMINAL PARACENTESIS Ordering Provider: SALAS THOMAS Reason For Exam: Hx cirrhosis w/ [...] AM EST CT abdomen pelvis w contrast [[id number]] Collected: 09/09/232018 Order Status: Completed Updated: 09/09/232028 Narrative: Patient Name: CAROLINA HIGHTOWER : 1975 [facility]#: [id number] Exam Date/Time: 09/09/2023 20:11 Procedure: CT ABDOMEN [...] 8:28 PM EST XR chest 1 view [[id number]] Collected: 09/09/231846 Order Status: Completed Updated: 09/09/231848 Narrative: Patient Name: CAROLINA HIGHTOWER : 1975 [facility]#: [id number] Exam Date/Time: 09/09/2023 18:44 Procedure: XR CHEST [...] Your Medications These medications were sent to [facility] - [place], [place] - [address] [place] [place] [address] desvenlafaxine 100 MG 24 hr tablet doxepin 10 MG capsule traZODone 100 MG tablet DIET: Adult diet Regular ACTIVITY: No restriction. COMPLEXITY OF FOLLOW UP: [] Moderate Complexity: follow up within 7-14 calendar days (31653) [] Severe Complexity: follow up within 7 calendar days (18131) FOLLOW UP TESTING, PENDING RESULTS OR REFERRALS AT TRANSITIONAL CARE VISIT: [] Yes [] No PENDING STUDIES: DISPOSITION: Home FACILITY/HOME CARE AGENCY NAME: Follow up with Cristiana Strauss MD [address] [place] [address] [address] [facility] [id number] Schedule an appointment as soon as possible [...] 09/15/2023, 12:04 PM documented in this encounter [facility] 09-15-2023 Note Hospitalist Progress Note 09/15/2023 [...] 3.7 3.4* CL 113* 110* 107 CO2 * BUN 2* 4* 4* CREATININE 0.68 0.62 [...] 1,000 mL enema, 1 enema, Rectal, TID spjvmxlp-anwlhghomq-lkidcjqmx, , Topical, TID pantoprazole (ProtoNix) 40 mg [...] Emergency Contact Information Primary Emergency Contact: John Hightower Relation: Spouse Secondary Emergency Contact: Vannesa Hightower Mobile Relation: Daughter Saima Pedersen MD [facility] Division of Hospitalist Medicine [facility] 09-14-2023 Note Formatting of this n ote might be different from the original. Chart reviewed. Patient had paracentesis today with 1700 ml removed. Surgery is following patient for likely ileus -->no plans for intervention and recommend ADAT. Current discharge plan is home no needs once medically stable. [facility] 09-14-2023 Note Formatting of this n ote might be different from the original. Chart reviewed. Patient had paracentesis today with 1700 ml removed. Surgery is following patient for likely ileus -->no plans for intervention and recommend ADAT. Current discharge plan is home no needs once medically stable. [facility] 09-14-2023 Note Hospitalist Progress Note 09/14/2023 Subjective: Admit Date: 09/09/2023 PCP: No primary care provider on file. Room#: W7-726/W7726 A Brief Hospital course: Patient is 47-year-old [...] 1,000 mL enema, 1 enema, Rectal, TID adrtlhie-zgwmljbnsb-ylugdykrl, , Topical, TID pantoprazole (ProtoNix) 40 mg [...] Emergency Contact Information Primary Emergency Contact: John Hightower Relation: Spouse Secondary Emergency Contact: Vannesa Hightower Mobile Relation: Daughter Saima Pedersen MD [facility] Division of Hospitalist Medicine [facility] 09-14-2023 Note Formatting of this n ote might be different from the original. Patient to ultrasound department for paracentesis. History, medications and allergies reviewed. Sameul Pastor PA-C in to speak with patient. Informed consent obtained. 1700 mL clear yellow colored fluid removed. Patient tolerated procedure well. Bandaid applied to site. Patient discharged to [facility] 09-14-2023 Note Formatting of this n ote might be different from the original. Patient to ultrasound department for paracentesis. History, medications and allergies reviewed. Samuel Pastor PA-C in to speak with patient. Informed consent obtained. 1700 mL clear yellow colored fluid removed. Patient tolerated procedure well. Bandaid applied to site. Patient discharged to [facility] 09-13-2023 Note Hospitalist Progress Note 09/13/2023 Subjective: Admit Date: 09/09/2023 PCP: No primary care provider on file. Room#: [facility]726/[facility] A Brief Hospital course: Patient is [...] membreno Relation: Spouse Secondary Emergency Contact: Vannesa Hightower Mobile Relation: Daughter Saima Pedersen MD [facility] Division of Hospitalist Medicine [facility] 09-13-2023 Note Care Management Prog ress [...] Stay (Days): 4 GMLOS: No GMLOS Documented [facility] 09-13-2023 Note Formatting of this n [...] Stay (Days): 4 GMLOS: No GMLOS Documented [facility] 09-13-2023 Note Formatting of this n ote [...] Stay (Days): 4 GMLOS: No GMLOS Documented [facility] 09-12-2023 Note Hospitalist Progress Note 09/12/2023 Subjective: Admit Date: 09/09/2023 PCP: No primary care provider on file. Room#: W7-726/W7726 A Brief Hospital course: Patient is 47-year-old [...] Extended Emergency Contact Information Primary Emergency Contact: ChadNicholas membrenoney Relation: Spouse Saima Tan MD Division of Hospitalist Medicine [facility] 09-12-2023 Note Formatting of this n ote might be different from the original. Care Managment Initial Assessment Date: 09/12/2023 Patient Name: Carolina Hightower : 1975 Patient Information Source of Information: Patient Cognition/Language: WFL - Within Functional Limits Permission given to speak with patient field sales representative/caregiver as indicated: Yes Confirmation of Payer with patient/family: Yes Payer Name: [employer] Medicaid [place]: No Confirmation of Primary Care Physician: Confirmed [...] pain, nausea and vomiting, hx: polysubstance abuse. [place] diet and Addiction Medicine consulted. Discharge plan home with Significant Other. Meg Herrmann RN [facility] 09-12-2023 Note Formatting of this n ote might be different from the original. Care Managment Initial Assessment Date: 09/12/2023 Patient Name: Carolina Hightower : 1975 Patient Information Source of Information: Patient Cognition/Language: WFL - Within Functional Limits Permission given to speak with patient field sales representative/caregiver as indicated: Yes Confirmation of [...] pain, nausea and vomiting, hx: polysubstance abuse. [place] diet and Addiction Medicine consulted. Discharge plan home with Significant Other. Meg Herrmann RN [facility] 09-11-2023 Note Formatting of this n ote might be different from the original. Attempted to complete Initial assessment over the phone. Patient currently unavailable/off unit. Will try again as time allows. TCC will follow. [facility] 09-11-2023 Note Formatting of this n ote might be different from the original. Attempted to complete Initial assessment over the phone. Patient currently unavailable/off unit. Will try again as time allows. TCC will follow. [facility] 09-11-2023 Note Hospitalist Progress Note 09/11/2023 Subjective: [...] 8 4 9 LIVER PROFILE: Recent Labs 09/09/23 1848 09/10/23 0622 09/11/23 0030 AST 124* 103* [...] Emergency Contact Information Primary Emergency Contact: John Hightower Relation: Spouse Judah Valentine MD Division of Hospitalist Medicine [facility] 09-11-2023 Note ADDICTION MEDICINE CONSULTATION H&P Patient: Carolina Hightower Admit Date: 09/09/2023 Primary Care Physician: No primary care provider on file. Reason for Consultation: Substance use. __ HISTORY OF PRESENT ILLNESS Chief Complaint Patient presents with Abdominal Pain Carolina Hightower is a 47 y.o. year old obese, [...] Physical Exam Vi (more content not included)... [facility] 09-11-2023 Hospital Discharg e instructions Jozef Cordova MD - 09/11/2023 11:48 AM EST Images from the original note were not included. [facility] Addiction Medicine Intensive Outpatient Program [place] ([facility]): [phone] [place]: [phone] [place]: [phone] Behavioral Health Intensive Outpatient Program [place] ([facility]): [phone] [place]: [phone] [facility] [place] ([facility]): [phone] [place]: [phone] Partial Hospitalization Program [place] ([facility]): [phone] Tra[facility] [place] ([facility]): [phone] [facility] [place] ([facility]): [phone] Alcoholics Anonymous Meetings [email or web address] [facility] [address] [place] [address], [address], [place] [address] Saima Tan MD - 09/15/2023 12:01 PM EST F/U with PCP, GI, Addiction Medicine documented in this encounter [facility] 09-11-2023 Consult note Associated Order (s): IP CONSULT TO ADDICTION MEDICINE Images from the original note were not included. ADDICTION MEDICINE CONSULTATION H&P Patient: Carolina Hightower Admit Date: 09/09/2023 Primary Care Physician: No primary care provider on file. Reason for Consultation: Substance use. HISTORY OF PRESENT ILLNESS Chief Complaint Patient presents with Abdominal Pain Carolina Hightower is a 47 y.o. year old obese, [...] paracentesis Result Date: 09/10/2023 Patient Name: CAROLINA HIGHTOWER : 1975 Exam Date/Time: 09/10/2023 08:29 Procedure: US GUIDED ABDOMINAL PARACENTESIS Ordering Provider: SALAS THOMAS Reason For Exam: Hx cirrhosis w/ [...] contrast Result Date: 09/09/2023 Patient Name: CAROL[facility]IGHTOWER [facility] 1975 [id number] Exam Date/Time: 09/09/2023 20:11 Procedure: CT ABDOMEN [...] view Result Date: 09/09/2023 Patient Name: CAROLINA HIGHTOWER : 1975 Exam Date/Time: 09/09/2023 18:44 Procedure: XR CHEST [...] 455 ms QTC Interval 501 ms P [place] 55 degrees QRS [place] -7 degrees T Wave [place] 28 degrees MD Interval 157 ms CBC [...] clinical information on the day of visit. [facility] 09-11-2023 Consult note Associated Order (s): IP CONSULT TO ADDICTION MEDICINE Images from the original note were not included. ADDICTION MEDICINE CONSULTATION H&P Patient: Carolina Hightower Admit Date: 09/09/2023 Primary Care Physician: No primary care provider on file. Reason for Consultation: Substance use. HISTORY OF PRESENT ILLNESS Chief Complaint Patient presents with Abdominal Pain Carolina Hightower is a 47 y.o. year old obese, [...] paracentesis Result Date: 09/10/2023 Patient Name: CAROLINA HIGHTOWER : 1975 Exam Date/Time: 09/10/2023 08:29 Procedure: US GUIDED ABDOMINAL PARACENTESIS Ordering Provider: SALAS THOMAS Reason For Exam: Hx cirrhosis w/ [...] contrast Result Date: 09/09/2023 Patient Name: CAROLINA HIGHTOWER : 1975 Exam Date/Time: 09/09/2023 20:11 Procedure: [...] view Result Date: 09/09/2023 Patient Name: CAROLINA HIGHTOWER : 1975 [id number] Exam Date/Time: 09/09/2023 18:44 Procedure: XR CHEST [...] 455 ms QTC Interval 501 ms P [place] 55 degrees QRS [place] -7 degrees T Wave [place] 28 degrees MD Interval 157 ms CBC [...] day of visit. documented in this encounter [facility] 09-11-2023 Nurse Note Pt was found wandering the hospital by security, confused. Pt brought back by security and she said she was going outside to smoke. She was very upset that she could not have a smoke. Pt threatened to punch someone in the face. Pt is confused. [facility] 09-11-2023 Nurse Note Pt was found wandering the hospital by security, confused. Pt brought back by security and she said she was going outside to smoke. She was very upset that she could not have a smoke. Pt threatened to punch someone in the face. Pt is confused. documented in this encounter [facility] 09-10-2023 Note Attending History an d [...] is cooperative. DATA: CBC: Recent Labs 09/09/23 1848 WBC 9.4 RBC 4.56 HGB 10.4* HCT 32.4* MCV 71.1* RDW 21.6* PLT 95* BMP: Recent Labs 09/09/23 1848 NA 136 K 4.3 CL 109* CO2 19* BUN 7 CREATININE 0.73 GLUCOSE 139* CALCIUM 8.7 ANIONGAP 8 LIVER PROFILE: Recent Labs 09/09/238 AST 124* ALT 59* BILITOT 2.7* ALKPHOS [...] hours. I revie (more content not included)... [facility] 09-10-2023 History and physical note Images [...] Emergency Contact Information Primary Emergency Contact: John Hightower Relation: Spouse Cindi Salas MD Division of Hospitalist Medicine Inpatient Medical Services[facility] [employer] Work Phone: 09-10-2023 History and physical note [...] Emergency Contact Information Primary Emergency Contact: John Hightower Relation: Spouse Cindi Salas MD [facility] documented in this encounter [facility] 09-10-2023 Emergency department Note Report given to 7W at this time. Transport en route. Laura Antony RN 09/10/23 050 [facility] 09-10-2023 Emergency department Note Report given to 7W at this time. Transport en route. Laura Antony RN 09/10/23 050 They are here now to transport the patient to [facility] 09/10/23 0447 [facility] ETA 0430 RN will call report in a few :) [facility] 09/10/23 0432 EMERGENCY DEPARTMENT ENCOUNTER Pt Name: Carolina Hightower Birthdate 1975 Date of evaluation: 09/09/2023 ED Provider: JOSE Collins CHIEF COMPLAINT Chief Complaint Patient presents with Abdominal Pain HISTORY OF PRESENT ILLNESS (Location/Symptom, Timing/Onset, Context/Setting, Quality, Duration, Modifying Factors, Severity) Note limiting factors. I wore appropriate PPE for the entirety of this encounter. HPI Carolina Hightower is a 47 y.o. female who presents [...] Culture. Procedure Abnormality Status --------- ------ Complete Urinalysis[[id number]] Abnormal Final result Please view results for [...] note for further details. In brief, Carolina Hightower is a 47 y.o. female who presented [...] obstruction. Disposition admission to medical service at [facility]. [facility] unfortunately does not have the capacity to perform paracentesis if deemed necessary. Given this illness provider would like patient be transferred to [facility] for small bowel obstruction management, general surgery consultation. Discussed with Dr. Salas who accepted patient for transfer. Patient will be transferred to [facility]. PROCEDURES: Unless otherwise noted below, none Procedures [...] Provider JOSE Collins 09/09/232117 Emergency Department Encounter [facility] ED Patient: Carolina Hightower : 1975 Date of Evaluation: 09/09/2023 ED Supervising Physician: Lenny Macdonald MD I independently examined and evaluated Carolina Hightower. This will serve as my Supervisory note as the salt manager of record and shared attestation. I did perform a substantive portion of the visit including all aspects of the Medical Decision Making. I wore appropriate PPE for the entirety of this encounter. In brief, Carolina Hightower is a 47 y.o. female that presents [...] inpatient medicine team they recommend transfer to [facility] as they do not have IRP abilities over the weekend for paracentesis if required. Recommending bowel rest will be admitted Diagnoses as of 09/12/23 5045 Small bowel obstruction (HCC) Diagnostic tests considered [...] dictating provider for clarification.) Lenny Macdonald MD [facility] Lenny Macdonald MD 09/12/23 1500 Pt c/o abdominal pain that began this afternoon, states that she has hx of cirrhosis. Family states she seems off. documented in this encounter [facility] 09-10-2023 Emergency department Note They are here now to transport the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 of Alcohol and Drug Abuse Patient Records regulations: The Federal rules restrict any use of the information to criminally investigate or prosecute any alcohol or drug abuse patient.[facility] HospitalIn the event this information is protected by the Federal Confidentiality of Alcohol and Drug Abuse Patient Records regulations: The Federal rules restrict any use of the information to criminally investigate or prosecute any alcohol or drug abuse patient.[facility] HospitalIn the event this information is protected by the Federal Confidentiality of Alcohol and Drug Abuse Patient Records regulations: The Federal rules restrict any use of the information to criminally investigate or prosecute any alcohol or drug abuse patient.[facility] HospitalIn the event this information is protected by the Federal Confidentiality of Alcohol and Drug Abuse Patient Records regulations: The Federal rules restrict any use of the information to criminally investigate or prosecute any alcohol or drug abuse patient.[facility] HospitalIn the event this information is protected by the Federal Confidentiality of Alcohol and Drug Abuse Patient Records regulations: The Federal rules restrict any use of the information to criminally investigate or prosecute any alcohol or drug abuse patient.[facility] HospitalIn the event this information is protected by the Federal Confidentiality of Alcohol and Drug Abuse Patient Records regulations: The Federal rules restrict any use of the information to criminally investigate or prosecute any alcohol or drug abuse patient.[facility] HospitalIn the event this information is protected by the Federal Confidentiality of Alcohol and Drug Abuse Patient Records regulations: The Federal rules restrict any use of the information to criminally investigate or prosecute any alcohol or drug abuse patient.[facility] HospitalIn the event this information is protected by the Federal Confidentiality of Alcohol and Drug Abuse Patient Records regulations: The Federal rules restrict any use of the information to criminally investigate or prosecute any alcohol or drug abuse patient.[facility] HospitalIn the event this information is protected by the Federal Confidentiality of Alcohol and Drug Abuse Patient Records regulations: The Federal rules restrict any use of the information to criminally investigate or prosecute any alcohol or drug abuse patient.[facility] HospitalIn the event this information is protected by the Federal Confidentiality of Alcohol and Drug Abuse Patient Records regulations: The Federal rules restrict any use of the information to criminally investigate or prosecute any alcohol or drug abuse patient.[facility] HospitalIn the event this information is protected by the Federal Confidentiality of Alcohol and Drug Abuse Patient Records regulations: The Federal rules restrict any use of the information to criminally investigate or prosecute any alcohol or drug abuse patient.[facility] Reason for Visit (unrecogniz ed section [...] Small bowel obstruction (HCC) Procedures . Cindi Salas MD [address] [address] [facility] [address] [place] [id number] Referral ID Status Reason Start Date Expiration Date Visits Re quested Visits Authorized [id number] 1 Reason Comments Derm Problem Sore on chin, states has been there for years, she has a hard time not touching it, painful Care Teams (unrecognized sec tion and content) Party Plan Sales Unit Sales Leader Relationship Specialty Start Date End Date Dacia Acosta MD [address] [facility] [address] PCP - General Family Practice 08/24/10 Party Plan Sales Unit Sales Leader Relationship Specialty Start Date End Date Dacia Acosta MD [address] [facility] [address] PCP - General Family Practice 08/24/10 Party Plan Sales Unit Sales Leader Relationship Specialty Start Date End Date Dacia Acosta MD [address] [facility] [address] PCP - General Family Practice 08/24/10 Party Plan Sales Unit Sales Leader Relationship Specialty Start Date End Date Dacia Acosta MD [facility] [facility] [address] PCP - General Family Practice 08/24/10 Party Plan Sales Unit Sales Leader Relationship Specialty Start Date End Date Dacia Acosta MD [address] [facility] [address] PCP - General Family Practice 08/24/10 Party Plan Sales Unit Sales Leader Relationship Specialty Start Date End Date Dacia Acosta MD [address] [facility] [address] PCP - General Family Practice 08/24/10 Party Plan Sales Unit Sales Leader Relationship Specialty Start Date End Date Dacia Acosta MD [address] [facility] [address] PCP - General Family Practice 08/24/10 Party Plan Sales Unit Sales Leader Relationship Specialty Start Date End Date Dacia Acosta MD [address] [facility] [address] PCP - General Family Practice 08/24/10 Party Plan Sales Unit Sales Leader Relationship Specialty Start Date End Date Dacia Acosta MD [address] [facility] [address] PCP - General Family Practice 08/24/10 Party Plan Sales Unit Sales Leader Relationship Specialty Start Date End Date Dacia Acosta MD [address] [facility] [address] PCP - General Family Medicine 08/24/10 Party Plan Sales Unit Sales Leader Relationship Specialty Start Date End Date Dacia Acosta MD [address] [facility] [address] PCP - General Family Medicine 08/24/10 Party Plan Sales Unit Sales Leader Relationship Specialty Start Date End Date Dacia Acosta MD [address] [facility] [address] PCP - General Family Medicine 08/24/10 Party Plan Sales Unit Sales Leader Relationship Specialty Start Date End Date Dacia Acosta MD [address] [facility] [address] PCP - General Family Medicine 08/24/10 Party Plan Sales Unit Sales Leader Relationship Specialty Start Date End Date Dacia Acosta MD [address] [facility] [address] PCP - General Family Medicine 08/24/10 Party Plan Sales Unit Sales Leader Relationship Specialty Start Date End Date Dacia Acosta MD [address] [facility] [address] PCP - General Family Medicine 08/24/10 Party Plan Sales Unit Sales Leader Relationship Specialty Start Date End Date Dacia Acosta MD [address] [facility] [address] PCP - General Family Medicine 08/24/10 Party Plan Sales Unit Sales Leader Relationship Specialty Start Date End Date Dacia Acosta MD [address] [facility] [address] PCP - General Family Medicine 08/24/10 Party Plan Sales Unit Sales Leader Relationship Specialty Start Date End Date Dacia Acosta MD [address] [place] [address] PCP - General Family Medicine 08/24/10 Party Plan Sales Unit Sales Leader Relationship Specialty Start Date End Date Dacia Acosta MD [address] [place] [address] PCP - General Family Medicine 08/24/10 Scheduled [...] specifically ordered. 0925 (Given - Provider: Kylah Parks RN)1335 (Given - Provider: Kylah Parks RN)2117 (Given - Provider: Harjit Parsons RN) 040 (Given - Provider: Harjit Parsons RN)0832 (Given - Provider: Kylah Parks RN)123 (Given - Provider: Kylah Parks RN)1952 (Given - Provider: Haritha Martinez RN) 015 (Given - Provider: Haritha Martinez RN)0626 (Given - Provider: Haritha Martinez RN) naloxone (Narcan) injection 0.4 mg 0.4 mg, IntraVENous, Every 5 min PRN, opioid reversal, respiratory depression, Starting on 09/14/23 at 0915, +++ For RR <10, pinpoint pupils, over sedation for opioid reversal - MUST notify software applications designer provider immediately after first dose, may give [...] Parsons RN)1231 (Given - Provider: Kylah Parks RN)1952 (Given - Provider: Haritha Martinez RN) 0156 (Given - Provider: Haritha Martinez, NASH) ondansetron ODT (Zofran-ODT) disintegrating tablet 4 mg(Linked Group 3) 4 mg, Oral, Every 8 hours PRN, nausea, vomiting, Starting on Tue09/10/23 at 0547, 1st Line. If inadequate response within 60 minutes, proceed to next-line agent or contact provider if no further options ordered. Patient should allow tablet to dissolve on tongue. Do not remove from blister pack until just before administering. 1706 (See Alternative - Provider: Kylah Parks, NASH) 0404 (See Alternative - Provider: Harjit Parsons, NASH)1231 (See Alternative - Provider: Kylah Parks, NASH)1953 (See Alternative - Provider: Haritha Martinez, NASH) 0156 (See Alternative - Provider: Haritha Martinez, NASH) sodium chloride ([place]) 0.65 % nasal spray 2 spray 2 spray, Each Nostril, Every 4 hours PRN, nasal dryness, Starting on Tue09/13/23 at 0337 0539 (Given - Provider: Harjit Parsons RN)1336 (Given - Provider: Kylah Parks, NASH) Linked Groups Order Group 1: lactulose (Chronulac) 10 GM/15ML solution 20 gJump to med 20 g, Oral, 3 times daily, First dose on Tue09/10/23 at 0900 Or lactulose (Chronulac) 200 g in sterile water 1,000 mL enemaJump to med 1 enema, Rectal, 3 times daily, First dose on Tue09/10/23 at 0900, Mix 200GM (300mL) of lactulose with 700mL of sterile water for total volume of 1000mL - If Pt NPO or unable to tolerate PO intake Group 2: acetaminophen (Tylenol) tablet 650 mgJump to med 650 mg, Oral, Every 6 hours PRN, mild pain (1-3), fever, For temp greater than 100.4 F (38 C), Starting on Tue09/10/23 at 0547, Maximum dose of acetaminophen is [...] BE BASED ON THE PRIMARY CLINICAL RECORDS. [facility] [employer] [facility]. provides no warranty or guarantee of the accuracy or completeness of information in this document.
--- NOTE | 2023-11-05 20:00 | RAD_ITS ---
STUDY: X-RAY CHEST REASON FOR EXAM: Female, 48 years old. SOB TECHNIQUE: Single AP portable view of the chest. COMPARISON: 05/20/2022. FINDINGS: The lungs are clear and expanded. There is no demonstrated pleural abnormality. Normal size heart. Normal mediastinum and cal. Normal visualized pulmonary arteries. Normal visualized aortic arch and descending thoracic aorta. Normal visualized thoracic spine. Normal visualized ribs, clavicles, and shoulders. There is no demonstrated abnormality of the visualized soft tissue structures of the upper abdomen. RAD/Chest 1 View (Portable) IMPRESSION: Normal x-ray examination of the chest. Electronically Signed: Lori Hallman MD at 20:31 EST ,
[2023-11-05 20:02] LABS: Absolute Lymphocyte Count 1.48 X10^3/uL (0.83-4.51); Absolute Neutrophil Count 2.9 X10^3/uL (2.0-7.7); Basophil# 0.03 X10^3/uL; Basophil% 0.6 % (0-1); Eosinophil# 0.16 X10^3/uL; Eosinophils% 3.2 % (0-5); Hemoglobin 9.4 g/dL (12.0-15.0); Lymphocyte # 1.48 X10^3/ul (0.83-4.51); Lymphocyte % 29.7 % (19-41); Mean Corp Hgb Conc 30.3 g/dL (32-36); Mean Corpuscular Hgb 23.4 pg (27.0-32.0); Mean Corpuscular Volume 77.1 fL (81-99); Mean Platelet Vol. 9.9 fl (6.2-12.0); Monocyte# 0.42 X10^3/uL; Monocyte% 8.4 % (0-10); NRBC Flagged by Analyzer 0 % (0-5); Neutrophil # 2.89 X10^3/uL (2.7-7.7); Neutrophil % 57.9 % (47-70); POSITIVE COUNT YES; POSITIVE MORPHOLOGY YES; Platelet Count 69 K/mm3 (150-450); RBC Distribution Width CV 20.6 % (11.6-14.6); RBC Distribution Width SD 58.3 fl (35.1-43.9); Red Blood Count 4.02 M/mm3 (4.2-5.4)
[2023-11-05 20:12] LABS: Internal QC Validated? YES +Cl - CLEAR BKGD; Pregnancy, Serum, hCG Quali. NEGATIVE Negative; Record Kit Lot#, Serum Preg. 718086
[2023-11-05 20:17] LABS: International Normalized Ratio 1.6; Prothrombin Time (Protime)PT. 19.5 SECONDS (11.7-14.9)
[2023-11-05 20:18] LABS: ALB/GLOB Ratio 0.6 RATIO (0.9-2.4); AST(SGOT) 98 U/L (15-37); Alanine Aminotransfer ALT/SGPT 52 U/L (13-56); Albumin, Serum 2.5 g/dL (3.2-5.0); Alkaline Phosphatase 139 U/L (45-117); Anion Gap 2 (5-15); BUN 12 mg/dL (7-18); BUN/Creat Ratio 13.7 RATIO (10-20); Chloride 114 mmol/L (98-107); Creatinine, Serum 0.88 mg/dL (0.55-1.02); EST Glomerular Filtration Rate 73 mL/min (>60); Est Glom Filt Rate - Afr Amer 88 mL/min (>60); Estimated Creatinine Clearance 81.94 ml/min; Globulin 4.3 g/dL (2.2-4.2); Glucose 113 mg/dL (74-106); Lipase 45 U/L (13-75); Potassium 3.8 mmol/L (3.5-5.1); Protein, Total 6.8 g/dL (6.4-8.2); Sodium Level 141 mmol/L (136-145)
[2023-11-05 20:29] LABS: Color, Urine Yellow (Yellow); Glucose, Dipstick Normal (Normal); Ketone-Dipstick 5 mg/dl (Negative); Leukocyte Esterase-Dipstick 100 /ul (Negative); Nitrite-Dipstick Negative (Negative); Occult Blood-Urine 50 /ul (Negative); Protein-Dipstick 30 mg/dl (Negative); Specific Gravity, Urine 1.025 (1.002-1.030); Urine Clarity Sl. Cloudy (Clear); Urine Urobilinogen 8 mg/dl (Normal)
[2023-11-05 20:34] LABS: Urine Bilirubin Dipstick 1 mg/dL (Negative)
[2023-11-05 20:35] LABS: Squamous Epithelial Cells - UA 10-25 SEEN /hpf (5-10); White Blood Cells 5-10 SEEN /hpf (0-5)
[2023-11-05 20:36] LABS: Bacteria RARE /hpf (None Seen); Calcium Oxalate Crystals Ur 2+ /hpf (<or=2+); Mucous, Urine 1+ /hpf (<or=2+); Red Blood Cells-Urine 0-5 SEEN /hpf (0-5)
[2023-11-05 20:40] LABS: Differential Indicated SCAN CRITERIA MET
[2023-11-05 20:41] LABS: Anisocytosis 2+; Differential Comment SCANNED; Microcytosis 2+; Platelet Estimate MKD DEC (ADEQ)
[2023-11-05 21:00] VITALS: BP 131/77; PULSE 62; RESP 14; O2SAT 98
== END 2023-11-05 21:52 | disposition home or self-care (01) ==
PROVIDERS: Emergency Provider Emergency Medicine; PCP Family Medicine; Visit Provider Emergency Medicine
DX: R18.8 Other ascites (principal); K74.60 Unspecified cirrhosis of liver; J44.9 Chronic obstructive pulmonary disease, unspecified; D64.9 Anemia, unspecified; F17.210 Nicotine dependence, cigarettes, uncomplicated; Z91.148 Patient's other noncompliance with medication regimen for other reason; Z11.52 Encounter for screening for COVID-19; Z79.899 Other long term (current) drug therapy
CPT/HCPCS: 71045; 80053; 81001; 83690; 84703; 85025; 85610; 87086; 87631; 99282; A4216

== ENCOUNTER 2023-11-07 07:22 | Emergency (ER) | payer MEDICAID, SELFPAY ==
[2023-11-07 07:23] VITALS: BP 129/68; PULSE 65; RESP 14; TEMP 36.8; O2SAT 100
[2023-11-07 07:25] VITALS: O2SAT 99
--- NOTE | 2023-11-07 07:31 | EX.ED.DYSGE1 ---
HPI History of Present Illness Chief Complaint: Abd Pain PFSH PFSH Medical History Acute insomnia Alcohol abuse Anemia Anxiety and depression Ascites Chronic pain Cirrhosis of liver COPD (chronic obstructive pulmonary disease) Depression Gastric reflux GERD (gastroesophageal reflux disease) Hepatitis History of diverticulitis History of edema History of pain when walking History of renal disease Hyperbilirubinemia Kidney stones Loss of consciousness Low iron Marijuana use Migraine headache MRSA infection Obesity Open wound Polysubstance abuse Rash Restless legs Seizures Shortness of breath on exertion Sleep apnea Smoker Substance abuse Thrombocytopenia Tobacco use Home Medications desvenlafaxine 100 mg tablet,extended release 24 hour 100 mg PO DAILY NERVE PAIN 02/20/19 [History Last Taken Unknown] Vitamin D3 1,250 mcg OTHER QWEEK SUPPLEMENT 05/20/22 [History Last Taken Unknown] topiramate 100 mg tablet 100 mg PO BID PER GASTRO 05/20/22 [History Last Taken Unknown] trazodone 100 mg tablet 100 mg PO QHS SLEEP #1 TAB 05/21/22 [Rx Last Taken Unknown] aripiprazole 30 mg tablet 30 mg PO DAILY 09/14/22 [History Last Taken Unknown] gabapentin 100 mg capsule 100 mg PO Q12H 07/20/23 [History Last Taken Unknown] furosemide 20 mg tablet (Lasix) 20 mg PO DAILY #90 tabs 10/07/23 [Rx Last Taken Unknown] lactulose 20 gram/30 mL oral solution 20 g (30 mL) PO TID 30 days #2,880 mL 10/07/23 [Rx Last Taken Unknown] nadolol 20 mg tablet 20 mg PO DAILY 30 days #30 tabs 10/07/23 [Rx Last Taken Unknown] spironolactone 50 mg tablet 75 mg (1.5 x 50 mg) PO DAILY 30 days #45 tabs 10/07/23 [Rx Last Taken Unknown] furosemide 20 mg tablet (Lasix) 20 mg PO DAILY #30 tabs 11/05/23 [Rx Last Taken Unknown] nadolol 20 mg tablet 20 mg PO DAILY #30 tabs 11/05/23 [Rx Last Taken Unknown] spironolactone 50 mg tablet 75 mg (1.5 x 50 mg) PO DAILY #45 tabs 11/05/23 [Rx Last Taken Unknown] cephalexin 500 mg capsule 500 mg PO TID 7 days #21 caps 11/07/23 [Rx Last Taken Unknown] Allergy/AdvReac Type Severity Reaction Status Date / Time bupropion HCl Allergy SEIZURES Verified 11/05/23 18:47 [From Wellbutrin] codeine Allergy Rash Verified 11/05/23 18:47 Family History Mother Diabetes Father Cancer HX Throat CA. 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, marijuana, heroin and methamphetamine seatbelt use: always do you feel safe at home: Yes EXAM Physical Exam Const Vital Signs: 11/07/23 07:23 11/07/23 07:25 Temperature 98.2 F Temperature Source Temporal Pulse Rate 65 Respiratory Rate 14 Respiratory Effort Short of Breath Blood Pressure 129/68 H Blood Pressure Mean 88 Pulse Ox 100 Oxygen Delivery Method Room Air Room Air MDM MDM MDM Narrative Medical decision making narrative: HISTORY OF PRESENT ILLNESS: 48-year-old female presents abdominal pain and bloating. States she has been having 3 days of increasing abdominal pain and bloating. States she is prescribed multiple medications but has not been taking them. States she has had multiple paracenteses in the past. She denies any fever or vomiting. Denies any urinary complaints. Last bowel was yesterday. No melena hematochezia. No falls or recent trauma to the abdomen. No chest pain or shortness of breath endorsed. Endorses urinary frequency, endorses pain with urination. REVIEW OF SYSTEMS: Pertinent positives: Abdominal pain, bloating, urinary frequency, painful urination Pertinent negatives: Fever, vomiting, chest pain, shortness of breath, melena, hematochezia, urinary complaints, vaginal bleeding or discharge PHYSICAL EXAM: Nursing triage notes reviewed, Vital signs reviewed Constitutional: please see mdm HENT: MMM Eyes: Pupils equal round and reactive to light, Extraocular muscles intact Neck: No stridor, no JVD, full neck ROM Lungs: Clear to auscultation, No wheezing or rales. No increased work of breathing, no conversational dyspnea, no accessory muscle use, no nasal flaring. No respiratory distress noted Heart: Regular rate and rhythm, No murmurs, No rubs and No gallops, 2+ distal pulses (radial, femoral, posterior tibial) in all extremities Abdomen: Significant distention, negative fluid wave no obvious peritoneal signs, no palpable pulsatile abdominal masses, no auscultated abdominal bruit : No CVAT Extremities: No edema Neuro: No focal neurological deficits, cranial nerves II through XII intact, 5/5 strength in all extremities. Intact sensation to light touch in all extremities, 2+ reflexes bilateral patella tendons. Normal gait. No ataxia. Skin: No rash or lesions noted MEDICAL DECISION MAKING: Chief Complaint: Abdominal pain, bloating External records reviewed: Seen in the ED on 11/05/2023 for similar symptoms. Had an unremarkable lab workup at that time and was discharged home Imaging studies reviewed: Gallbladder ultrasound from 10/07/2023 shows small amount of ascites, gallbladder wall thickening, no gallstones. CT scan abdomen pelvis from 10/06/2023 Shows shows cirrhotic liver. Factors affecting care: Alcohol abuse, COPD, liver cirrhosis, history of diverticulitis, history of kidney stones, history of polysubstance Social determinants of health: Polysubstance abuse, alcohol abuse History obtained from others: none Consults: none MDM Narrative: Patient was hemodynamically stable, afebrile, nontoxic-appearing. Abdomen was distended but not tense, no fluid wave. No spider angiomata. No specific tenderness just diffusely tender. I considered the following differential diagnosis: SBP, distention from ascites, liver failure, coagulopathy, pancreatitis, med noncompliance I obtained a broad lab workup to further elucidate the etiology of previous complaints. I did perform a bedside paracentesis for diagnostic purposes. Procedure: Paracentesis Indication: Large ascites fluid collection Consent: Verbal Risks explained: Bleeding, infection, bowel injury, and hypotension. Anesthesia: 1% lidocaine with epinephrine. Using ultrasound guidance, a paracentesis needle the left lower quadrant was aspirated. The patient tolerated the procedure well. There were no complications. Fluid: The appearance of the fluid was yellow fluid. The volume that was aspirated was ~1000 cc of fluid. The procedure was performed by Yimi Hutchinson DO ALL IMAGES (IF OBTAINED) HAVE BEEN PERSONALLY REVIEWED AND INTERPRETED BY MYSELF. CBC with no leukocytosis, mild stable anemia, noted thrombocytopenia INR within normal limits no significant coagulopathy there is elevation in PT and PTT consistent with liver disease Urinalysis shows no evidence of urinary inflammation suggestive of UTI Cell count was less than 250 making SBP less likely in addition to this patient did not have leukocytosis or fever Lipase is wnl indicating no pancreatic inflammation. LFTs with baseline liver dysfunction, no signs of decompensated cirrhosis BMP without significant electrolyte abnormality, no BINDU, no anion gap to suggest endorgan hypoperfusion Urinalysis without evidence of obvious infection there is some inflammation in the patient's urine will send for culture as well as provide prophylactic antibiotics Urine test is negative The synthesis of the patient's history, physical exam, labs images Suggest no acute life or limb threatening pathology. Approximate 1 L of ascitic fluid was drained patient reported symptomatic improvement. She was instructed to begin taking her medicine and follow with GI doctor and schedule outpatient paracentesis in the future. Gave Keflex 500 mg 3 times daily for antimicrobial prophylaxis given inflammatory changes seen in the patient's urine sample. Sent urine for culture. The patient and/or family, caregivers express understanding. The patient and/or family, caregivers agrees with the plan. Shared decision making: I will have a discussion with the patient and or visitors regarding risk/benefits of further testing or admission. They will be made aware of of the risk/benefits inherent in this decision they will be given the opportunity to voice understanding. Total critical care time today provided was at least 0 minutes. This excludes separately billable procedures. Critical care time (if documented) is secondary to the patient having high probability of clinically significant/life threatening deterioration in the patient's condition which required my urgent intervention. Impression: 1. Abdominal pain 2. History of cirrhosis 3. Med noncompliance 4. Thrombocytopenia 5. Anemia of chronic disease 6. Encounter for paracentesis 7. Ascites Dispo: Discharge home This note was generated with [employer] dictation software. It may contain incorrect words, spelling, and punctuation that were not noted in review of the chart prior to signing. Lab Data Labs: Laboratory Results - last 24 hr 11/07/23 11/07/23 11/07/23 08:00 08:22 09:00 WBC 3.1 L RBC 4.14 L Hgb 9.5 L Hct 31.6 L MCV 76.3 L MCH 22.9 L MCHC 30.1 L RDW Std Deviation 57.7 H RDW Coeff of Katalina 20.7 H Plt Count 53 L Immature Gran % (Auto) 0.300 Neut % (Auto) 62.0 Lymph % (Auto) 23.6 [place] % (Auto) 9.6 Eos % (Auto) 3.5 Baso % (Auto) 1.0 Absolute Neuts (auto) 2.0 Absolute Lymphs (auto) 0.74 L Nucleated RBC % 0 Platelet Estimate MOD DEC Anisocytosis 2+ PT 21.3 H INR 1.8 APTT 43.8 H Sodium 142 Potassium 3.6 Chloride 113 H Carbon Dioxide 25.0 Anion Gap 4 L BUN 12 Creatinine 0.83 Estim Creat Clear Calc 85.64 Est GFR (MDRD) Af Amer 93 Est GFR (MDRD) Non-Af 77 BUN/Creatinine Ratio 14.4 Glucose 92 Calcium 8.8 Total Bilirubin 2.10 H Direct Bilirubin 1.03 H AST 92 H ALT 51 Alkaline Phosphatase 142 H Total Protein 7.0 Albumin 2.5 L Globulin 4.5 H Lipase 38 Urine Color Yellow Urine Clarity Sl. Cloudy Urine pH 6.0 Ur Specific [place] 1.020 Urine Protein 30 H Urine Glucose (UA) Normal Urine Ketones 5 H Urine Occult Blood 50 H Urine Nitrite Negative Urine Bilirubin Negative Urine Urobilinogen 4 H Ur Leukocyte Esterase 500 H Urine RBC 0-5 SEEN Urine WBC 25-50 SEEN Ur Squamous Epith Cells 5-10 SEEN Urine Bacteria 1+ Urine Mucus 1+ Urine Test Negative Fluid Source OTHER Fluid Color LT YEL Fluid Appearance SL CLDY Fluid WBC 0.133 Fluid Tot Cell Count 0.200 H Fld Polynuclear WBCs # 0.010 Fld Polynuclear WBCs % 7.5 Fluid Mononuclear WBCs 0.123 Fld Mononuclear WBCs % 92.5 Fl Pathologist Comment May follow Treatment and Re-Evaluation :: Repeat abdominal exam showed improvement in abdominal distention. Patient alerted she is asymptomatic and pain is resolved. I suspect her presentation is secondary to ascitic fluid distention. Discharge Plan Triage Chief Complaint: Abd Pain ED Provider: Yimi Hutchinson Dx/Rx/DC Orders Clinical Impression: Ascites Instructions: ED Cirrhosis Prescriptions: New cephalexin 500 mg capsule 500 mg PO TID 7 Days Qty: 21 0RF No Action desvenlafaxine 100 mg tablet extended release 24hr 100 mg PO DAILY Vitamin D3 1,250 mcg OTHER QWEEK Rx Instructions: TAKES ON MODAY BY MOUTH topiramate 100 mg tablet 100 mg PO BID Rx Instructions: BEFORE MEALS trazodone 100 mg tablet 100 mg PO QHS Qty: 1 0RF aripiprazole 30 mg tablet 30 mg PO DAILY nadolol 20 mg tablet 20 mg PO DAILY 30 Days Qty: 30 2RF Rx Instructions: Hold for heart less than 50 or systolic blood pressure less than 100 mmHg. spironolactone 50 mg tablet 75 mg PO DAILY 30 Days Qty: 45 2RF lactulose 20 gram/30 mL solution 20 g PO TID 30 Days Qty: 2880 2RF Rx Instructions: And adjust the frequency to have him goal of 3 bowel movements per day furosemide [Lasix] 20 mg tablet 20 mg PO DAILY Qty: 90 0RF furosemide [Lasix] 20 mg tablet 20 mg PO DAILY Qty: 30 0RF spironolactone 50 mg tablet 75 mg PO DAILY Qty: 45 0RF nadolol 20 mg tablet 20 mg PO DAILY Qty: 30 0RF gabapentin 100 mg capsule 100 mg PO Q12H Patient Comments: Take 1 capsule by mouth twice daily pt taking as needed. Primary Care Provider: Ang Acosta Referrals: Ang Acosta MD [Primary Care Provider] - Activity Restrictions/Additional Instructions: Thank you for trusting us with your care today! Please take Tylenol (2 pills, 650 mg), ibuprofen (2 pills, 400 mg) every 6 hours as needed for pain and fever control. Please take your medicine as prescribed. Please return to the emergency department if your symptoms change or worsen. Please follow with your primary care physician, cardroom drawing runner for further outpatient evaluation and management. Disposition Disposition: Home, Self Care
[2023-11-07] MEDS: Ondansetron 4 MG/2 ML Vial IV (08:06)
[2023-11-07] MEDS: Morphine 2 MG/ML Syringe IV ×2 (08:06→09:18)
[2023-11-07 08:29] VITALS: BMI 37.1
[2023-11-07 08:49] LABS: Color, Urine Yellow (Yellow); Glucose, Dipstick Normal (Normal); Ketone-Dipstick 5 mg/dl (Negative); Leukocyte Esterase-Dipstick 500 /ul (Negative); Nitrite-Dipstick Negative (Negative); Occult Blood-Urine 50 /ul (Negative); Protein-Dipstick 30 mg/dl (Negative); Urine Bilirubin Dipstick Negative (Negative); Urine Clarity Sl. Cloudy (Clear); Urine Urobilinogen 4 mg/dl (Normal)
[2023-11-07 08:50] LABS: Absolute Lymphocyte Count 0.74 X10^3/uL (0.83-4.51); Basophil# 0.03 X10^3/uL; Eosinophil# 0.11 X10^3/uL; Eosinophils% 3.5 % (0-5); Hematocrit 31.6 % (37-47); Hemoglobin 9.5 g/dL (12.0-15.0); Lymphocyte # 0.74 X10^3/ul (0.83-4.51); Lymphocyte % 23.6 % (19-41); Mean Corp Hgb Conc 30.1 g/dL (32-36); Mean Corpuscular Hgb 22.9 pg (27.0-32.0); Mean Corpuscular Volume 76.3 fL (81-99); Monocyte% 9.6 % (0-10); NRBC Flagged by Analyzer 0 % (0-5); Neutrophil # 1.95 X10^3/uL (2.7-7.7); POSITIVE COUNT YES; POSITIVE MORPHOLOGY YES; Platelet Count 53 K/mm3 (150-450); RBC Distribution Width CV 20.7 % (11.6-14.6); RBC Distribution Width SD 57.7 fl (35.1-43.9); Red Blood Count 4.14 M/mm3 (4.2-5.4); White Blood Count 3.1 K/mm3 (4.4-11.0)
[2023-11-07 08:52] LABS: Differential Indicated SCAN CRITERIA MET
[2023-11-07 08:54] LABS: International Normalized Ratio 1.8; Prothrombin Time (Protime)PT. 21.3 SECONDS (11.7-14.9)
[2023-11-07 08:55] LABS: Partial Thromboplast Time 43.8 Seconds (24.1-36.2)
[2023-11-07 09:01] LABS: Bacteria 1+ /hpf (None Seen); Mucous, Urine 1+ /hpf (<or=2+); Red Blood Cells-Urine 0-5 SEEN /hpf (0-5); Squamous Epithelial Cells - UA 5-10 SEEN /hpf (5-10); White Blood Cells 25-50 SEEN /hpf (0-5)
[2023-11-07 09:02] LABS: Internal QC Validated? YES +Cl - CLEAR BKGD; Pregnancy, Urine Negative Negative; Record Kit Lot#,Urine Preg HCG00007108086
--- OUTSIDE RECORDS SUMMARY | 2023-11-07 09:13 | XMS RPT_ITS | CCD ---
Author Name Unknown Address [address] [place] [address] Organization [facility] Care Team Providers Care Segregator Name Role Phone MAGNUS GELA Unavailable Unavailable DACIA ACOSTA Unavailable RENAY BENTLEY Unavailable Rosev ailable RENAY BENTLEY Unavailable Rosev Dacia Mekes MD Primary Care Provider Dacia Acosta MD Primary Care Provider Dacia Acosta MD Primary Care Provider Dacia Acosta MD Primary Care Provider Unavailable Primary Care Provider UnavailANDERSON Tucker Consulting Unavailable CINDI SALAS Admitting Unavailable SAIMA TAN Attending Unavailable DACIA ACOSTA Primary Care Unavailable DACIA ACOSTA Referring Unavailable DAICA ACOSTA Primary Care Unavailable DACIA ACOSTA Primary Care Unavailable Allergies Allergy Classification Reported Allergen(s) Allergy Type Date of Onset Reaction(s) Facility (20 sources) Aspirin; Translations: [ASPIRIN] Drug Allergy 5 [facility] Repository (20 sources) buPROPion; Translations: [BUPROPION HCL] Drug Allergy 3 Other: See Comments [facility] Repository (20 sources) Codeine; Translations: [CODEINE] Drug Allergy 5 Rash, Hives [facility] Repository (20 sources) buPROPion; Translations: [BUPROPION] Drug Allergy 3 Other: See Comments [facility] (20 sources) predniSONE; Translations: [PREDNISONE] Drug Allergy 9 Rash [facility] Work Phone: (3 sources) Prednisone Propensity to adverse reactions 9 [facility] Medications Current Medications Medication Drug [...] tablet 650 mg 20 ml albumin human, snf 250 mg/ml injection (2 sources) Human Serum Albumin Start: 09-10-2023 End: 09-10-2023 albumin human 25 % IV solution 50 g [id number] 200 actuat albuterol 0.09 mg/actuat metered dose [...] 97.5 [degF] Williams Athy PA-C Work Phone: [facility] 11-01-2023 15:49-0500 Body weight 92.08 kg Williams Athy PA-C Work Phone: [facility] 11-01-2023 15:49-0500 Diastolic blood pressure 86 mm[Hg] Williams Athy PA-C Work Phone: [facility] 11-01-2023 15:49-0500 Heart rate 82 /min Williams Athy PA-C Work Phone: [facility] 11-01-2023 15:49-0500 Respiratory rate 20 /min Williams Athy PA-C Work Phone: [facility] 11-01-2023 15:49-0500 SaO2% (BldA) [Mass fraction] 100 % Williams Athy PA-C Work Phone: [facility] 11-01-2023 15:49-0500 Systolic blood pressure 119 mm[Hg] Williams Athy PA-C Work Phone: [facility] 09-15-2023 12:01-0500 Body mass index (BMI) [Ratio] 38.38 kg/m2 Lenny Macdonald MD Work Phone: [facility] 09-15-2023 12:01-0500 Body weight 95.21 kg Lenny Macdonald MD Work Phone: [facility] 09-15-2023 11:39-0500 Body height 157.5 cm Lenny Macdonald MD Work Phone: [facility] 09-15-2023 06:02-0500 Body temperature 97.3 [degF] Lenny Macdonald MD Work Phone: [facility] 09-15-2023 06:02-0500 Diastolic blood pressure 53 mm[Hg] Lenny Macdonald MD Work Phone: [facility] 09-15-2023 06:02-0500 Heart rate 68 /min Lenny Macdonald MD Work Phone: [facility] 09-15-2023 06:02-0500 Respiratory rate 16 /min Lenny Macdonald MD Work Phone: [facility] 09-15-2023 06:02-0500 SaO2% (BldA) [Mass fraction] 98 % Lenny Macdonald MD Work Phone: [facility] 09-15-2023 06:02-0500 Systolic blood pressure 91 mm[Hg] Lenny Macdonald MD Work Phone: [facility] 12-02-2022 12:49-0500 Body temperature 98.29 [degF] Krislyn Aberegg PA Work Phone: [facility] 12-02-2022 12:49-0500 Body weight 94.62 kg Krislyn Aberegg PA Work Phone: [facility] 12-02-2022 12:49-0500 Diastolic blood pressure 78 mm[Hg] Krislyn Aberegg PA Work Phone: [facility] 12-02-2022 12:49-0500 Heart rate 64 /min Krislyn Aberegg PA Work Phone: [facility] 12-02-2022 12:49-0500 Respiratory rate 16 /min Krislyn Aberegg PA Work Phone: [facility] 12-02-2022 12:49-0500 SaO2% (BldA) [Mass fraction] 98 % Krislyn Aberegg PA Work Phone: [facility] 12-02-2022 12:49-0500 Systolic blood pressure 104 mm[Hg] Michaelmilytimothy GARCIA Work Phone: [facility] 09-29-2022 17:56-0500 Body temperature 98.2 [degF] Ananda Prabhakar MD Work Phone: [facility] 09-29-2022 17:56-0500 Body weight 94.98 kg Ananda Prabhakar MD Work Phone: [facility] 09-29-2022 17:56-0500 Diastolic blood pressure 82 mm[Hg] Ananda Prabhakar MD Work Phone: [facility] 09-29-2022 17:56-0500 Heart rate 67 /min Ananda Prabhakar MD Work Phone: [facility] 09-29-2022 17:56-0500 Respiratory rate 20 /min Ananda Prabhakar MD Work Phone: [facility] 09-29-2022 17:56-0500 SaO2% (BldA) [Mass fraction] 99 % Ananda Prabhakar MD Work Phone: [facility] 09-29-2022 17:56-0500 Systolic blood pressure 122 mm[Hg] Ananda Prabhakar MD Work Phone: [facility] 05-10-2022 15:42-0400 Diastolic blood pressure 96 mm[Hg] Dacia Acosta MD Work Phone: [facility] 05-10-2022 15:42-0400 Systolic blood pressure 148 mm[Hg] Dacia Acosta MD Work Phone: [facility] 05-10-2022 15:39-0400 Body weight 89.18 kg Dacia Acosta MD Work Phone: [facility] 05-10-2022 15:39-0400 Heart rate 92 /min Dacia Acosta MD Work Phone: [facility] 05-10-2022 15:39-0400 Respiratory rate 20 /min Dacia Acosta MD Work Phone: [facility] 05-09-2022 14:43-0400 Body temperature 98.6 [degF] Blanca James AIRPLANE INSPECTOR.ADMINISTRATIVE APPEALS [employer] Work Phone: [facility] 05-09-2022 14:43-0400 Body weight 91.54 kg Blanca James HIRO.ADMINISTRATIVE APPEALS [employer] Work Phone: [facility] 05-09-2022 14:43-0400 Diastolic blood pressure 74 mm[Hg] Blanca Dawson AIRPLANE INSPECTOR.ADMINISTRATIVE APPEALS [employer] Work Phone: [facility] 05-09-2022 14:43-0400 Heart rate 85 /min Blanca Dawson APRN.ADMINISTRATIVE APPEALS [employer] Work Phone: [facility] 05-09-2022 14:43-0400 Respiratory rate 21 /min Blancabryan Dawson APRN.ADMINISTRATIVE APPEALS [employer] Work Phone: [facility] 05-09-2022 14:43-0400 SaO2% (BldA) [Mass fraction] 99 % Blanca Dawson APRN.ADMINISTRATIVE [employer] Work Phone: [facility] 05-09-2022 14:43-0400 Systolic blood pressure 126 mm[Hg] Blanca Dawson AIRPLANE INSPECTOR.ADMINISTRATIVE [employer] Work Phone: [facility] 03-11-2022 14:26-0400 Body weight 92.08 kg Tresa Priscilla AIRPLANE INSPECTOR.ADMINISTRATIVE [employer] Work Phone: [facility] 03-11-2022 14:26-0400 Diastolic blood pressure 64 mm[Hg] Tresa Parkhof AIRPLANE INSPECTOR.ADMINISTRATIVE APPEALS [employer] Work Phone: [facility] 03-11-2022 14:26-0400 Heart rate 62 /min Tresa Parkhof AIRPLANE INSPECTOR.ADMINISTRATIVE [employer] Work Phone: [facility] 03-11-2022 14:26-0400 Respiratory rate 14 /min Tresa Parkhof AIRPLANE INSPECTOR.ADMINISTRATIVE [employer] Work Phone: [facility] 03-11-2022 14:26-0400 Systolic blood pressure 106 mm[Hg] Tresa Tannhof AIRPLANE INSPECTOR.ADMINISTRATIVE [employer] Work Phone: [facility] 01-11-2022 13:23-0400 Body temperature 97.81 [degF] Becca Enmanuel AIRPLANE INSPECTOR.ADMINISTRATIVE [employer] Work Phone: [facility] 01-11-2022 13:23-0400 Body weight 96.34 kg Becca Enmanuel AIRPLANE INSPECTOR.ADMINISTRATIVE [employer] Work Phone: [facility] 01-11-2022 13:23-0400 Diastolic blood pressure 62 mm[Hg] Becca Enmanuel AIRPLANE INSPECTOR.ADMINISTRATIVE [employer] Work Phone: [facility] 01-11-2022 13:23-0400 Heart rate 65 /min Becca Enmanuel AIRPLANE INSPECTOR.ADMINISTRATIVE [employer] Work Phone: [facility] 01-11-2022 13:23-0400 Respiratory rate 21 /min Becca Enmanuel AIRPLANE INSPECTOR.ADMINISTRATIVE [employer] Work Phone: [facility] 01-11-2022 13:23-0400 SaO2% (BldA) [Mass fraction] 99 % Becca Enmanuel AIRPLANE INSPECTOR.ADMINISTRATIVE [employer] Work Phone: [facility] 01-11-2022 13:23-0400 Systolic blood pressure 102 mm[Hg] Becca Enmanuel AIRPLANE INSPECTOR.ADMINISTRATIVE [employer] Work Phone: [facility] 08-04-2018 12:36-0500 Body surface area Derived from formula [facility] 08-04-2018 12:11-0500 Body surface area Derived from formula [facility] Encounters Encounter Date Encounter Type Care Provider Facility Start: 11-03-2023 Telephone encounter Dacia randhawa MD Work Phone: [facility] Procedures Date Procedure Procedure Detail Performing Clinician [...] or older (1 - 1-dose 60+ series) [facility] Start: 07-20-2033 DTaP/Tdap/Td Vaccines (2 - Td or Tdap) DTaP/Tdap/Td Vaccines (2 - Td or Tdap) [facility] Start: 07-20-2033 Urine microalbumin profile DTaP,Tdap,Td Vaccine (2 - Td or Tdap) [facility] Start: 09-15-2026 Diabetes Screening Diabetes Screening [facility] Start: 06-24-2024 DIABETES SCREEN DIABETES SCREEN [facility] Start: 06-24-2024 Diabetes Screening Diabetes Screening [facility] Start: 02-21-2024 HPV TESTING HPV TESTING [facility] Start: 02-21-2024 PAP TESTING PAP TESTING [facility] Start: 02-21-2024 Screening for malignant neoplasm of cervix [facility] Start: 01-25-2024 Mammography [facility] Start: 01-25-2024 Screening for malignant neoplasm of breast Mammogram Screening [facility] Start: 2023 Shingrix Vaccine (1 of 2) Shingrix Vaccine (1 of 2) [facility] Start: 2023 Zoster Vaccines (1 of 2) Zoster Vaccines (1 of 2) [facility] Start: 05-27-2023 Influenza vaccination [facility] Start: 12-02-2022 End: 02-01-2023 Bacteria identified in Wound by Culture WOUND CULTURE AND GRAM STAIN Microbiology Routine Skin infection Expected: 12/02/2022, Expires: 02/01/2023 [facility] Work Phone: Immunizations Immunization Date Immunization Notes Care Provider Fa dayanty 07-20-2023 tetanus toxoid, redu viridiana diphtheria toxoid, and acellular pertussis vaccine, adsorbed Lenny Macdonald MD Work Phone: [facility] 08-06-2018 influenza, injectabl e, quadrivalent, preservative free Becca Singer AIRPLANE INSPECTOR.ADMINISTRATIVE [employer] Work Phone: [facility] 08-06-2018 influenza virus vaccine, unspecified formulation Screen Wstr [facility] 08-05-2018 pneumococcal polysaccharide vaccine, 23 valent Becca Singer AIRPLANE INSPECTOR.ADMINISTRATIVE [employer] Work Phone: [facility] NEGATED: Highlighted row has not occurred!09-11-2023 Influenza, injectable, Madin [place] Canine Kidney, preservative free, quadrivalent Lenny Macdonald MD Work Phone: [facility] Payers Date Payer Category Payer Medicaid [id number] 2017 Medicaid [id number] 2015 Medicaid [employer] [id number] 2015-Present [phone] [address] [place] [address] Medicaid [id number] 2015 Medicaid [id number] Social History Date Type Detail Facility Start: 04-14-2017 End: 05-09-2022 Tobacco smoking status NHIS Smokes tobacco daily [facility] Work Phone: History of tobacco use Cigarette Smoker C [facility] Work Phone: Start: 01-11-2022 End: 11-01-2023 Alcohol intake Current drinker of alcohol (finding) [facility] Start: 02-28-2020 History SDOH Alcohol Frequency 3 [facility] Start: 12-10-2011 History SDOH Alcohol Comment occasionally mixed drink [facility] Start: 04-14-2017 End: 05-09-2022 Tobacco Comment maybe more then 1 pack daily [facility] Start: 1975 Sex Assigned At Not on file [facility] Start: 01-01-2022 End: 05-26-2022 Exposure to SARS-CoV-2 (event) Not sure [facility] Work Phone: Start: 04-14-2017 End: 02-23-2023 Cigarettes smoked current (pack per day) - Reported 1 [facility] Work Phone: Start: 04-14-2017 End: 05-09-2022 Tobacco use and exposure Smokeless tobacco non-user [facility] Start: 04-30-2022 End: 05-10-2022 Exposure to SARS-CoV-2 (event) Yes [facility] Start: 02-28-2020 End: 02-23-2023 Alcohol Use Disorder Identification Test - Consumption [AUDIT-C] [facility] Work Phone: How often to you hav e a drink containing alcohol? 2-4 times a month [facility] Work Phone: Average Number of Drinks Not on file [facility] Tobacco smoking stat [facility] Tobacco smoking consumption unknown [facility] Within the last year , have you been afraid of your partner or ex-partner? No [facility] How often to you hav e a drink containing alcohol? Never [facility] Start: 08-22-2023 Alcohol Comment daily use of liquor and other alcohol [facility] Clinical Notes 01-11-2022 to 11-03-2023 Telephone Encounter [...] Mary Orozco RN documented in this encounter [facility] 11-01-2023 Note HNO ID: [id number] Author: WILLIAMS SALVADOR PA-C Service: ? Author Type: Physician [employer] Fusion Middleware Developer Type: Progress Notes Filed: 11/01/2023 16:28 Note Text: This note was created using [employer]. Subjective Carolina Hightower is a 48 year [...] PAST SURGICAL HISTORY OF 2018 liver bx [facility] FAMILY HISTORY Problem Relation Age of [...] follow-up with dermatology and given referral to [facility]. Patient voiced understanding. Feeling great complaints medicated not sure I know the vaginal I canceled we are lima (more content not included)... [facility] 11-01-2023 History of Presen t illness Narrative Images from the original note were not included. This note was created using [employer]. Subjective Carolina Hightower is a 48 year [...] PAST SURGICAL HISTORY OF 2018 liver bx [facility] FAMILY HISTORY Problem Relation Age of [...] follow-up with dermatology and given referral to [facility]. Patient voiced understanding. Feeling great complaints medicated not sure I know the vaginal I canceled we are transportation issues like - CONSULT TO DERMATOLOGY Williams Salvador PA-C documented in this encounter [facility] 11-01-2023 Instructions Williams Salvador PA-C - 11/01/2023 4:05 PM EST [facility] [address], [place] [address] documented in this encounter [facility] 09-20-2023 Telephone encounter Note Unable to contact patient X2 [facility] 09-20-2023 Miscellaneous Notes Unable to contact patient X2 S: Patient admitted to: [facility] 09/09/23 B: Discharged on : 09/15/23 A: Hospital follow up call initiated to discuss any medication changes, follow up appointments and discharge instructions: Small bowel obstruction R: No contact x 1 at : [phone] documented in this encounter [facility] 09-16-2023 Telephone encounter Note S: Patient admitted to: [facility] 09/09/23 B: Discharged on : 09/15/23 A: Hospital follow up call initiated to discuss any medication changes, follow up appointments and discharge instructions: Small bowel obstruction R: No contact x 1 at : [phone] [facility] 09-15-2023 Note Formatting of this n ote might be different from the original. Social work follow up on discharge. SHELL notified by patients bedside RN patient needs assist with transport to home. SW spoke to patient to confirm address on file is correct. She reports she typically will use her [employer] johnny for transport and uses their uber/lyft service. SW placed call to [employer] transport [phone]. Transport arranged for occupational health nurse supervisor at [address] [place] [address] between 4:12-6:12pm. They will call the unit 15 minutes prior to their arrival . Ref # [id number]. tip out worker updated patients bedside RN, who will update the patient. [facility] 09-15-2023 Note Formatting of this n [...] service. SW placed call to [facility] [phone]. Transport arranged for occupational health nurse supervisor at [address] between 4:12-6:12pm. They will call the unit 15 minutes prior to their arrival . Ref # [id number]. tip out worker updated patients bedside RN, who will update the patient. [facility] 09-15-2023 Miscellaneous Notes Social work follow up on discharge. SW notified by patients bedside RN patient needs assist with transport to home. SW spoke to patient to confirm address on file is correct. She reports she typically will use her [employer]ohnny for transport and uses their uber/lyft service. SW placed call to [facility] [phone]. Transport arranged for occupational health nurse supervisor at [address] between 4:12-6:12pm. They will call the unit 15 minutes prior to their arrival . Ref # [id number]. tip out worker updated patients bedside RN, who will [...] Limits Permission given to speak with patient electroplating sales representative/caregiver as indicated: Yes Confirmation of Payer with patient/family: Yes Payer Name: [employer] [place]: No Confirmation of Primary Care Physician: Confirmed [...] TCC will follow. documented in this encounter [facility] 09-15-2023 Note Discharge Summary Carolina Hightower [...] SIGNIFICANT DIAGNOSTIC STUDIES: US guided abdominal paracentesis [[id number]] Collected: 09/14/231134 Order Status: Completed Updated: 09/14/231136 [...] 11:36 AM EST US guided abdominal paracentesis [[id number]] Collected: 09/10/23853 Order Status: Completed Updated: 09/10/23854 Narrative: Patient Name: CAROLINA HIGHTOWER : 1975 Exam Date/Time: 09/10/2023 08:29 Proced (more content not included)... [facility] 09-15-2023 History of Presen t illness [...] (S/p paracentesis 09/14 with 1.7L removed) Ascites Emergency Planner Strength: Not Performed Nutrition Assessment: 47yo F [...] On: Kcal/kg Weight Used for Energy Requirements: [place] Weight for Energy Calculation (kg): 50 kg Total Energy Requirements (kcals/day): 27-32 kcal/kg = 6305-8210 kcal/day Weight Used for Protein Requirements: [place] Weight in Kg Used for Protein Requirements: [...] lb) (stated) % Weight Change (Calculated): 5 [place] Body Weight (lbs) (Calculated): 110 lbs [place] Body Weight (Kg) (Calculated): 50 kg % [place] Body Weight (Calculated): 190.8 % BMI (kg/m2) [...] Continue current diet Latha Lester RD Contact: *[phone] Images from the original note were not [...] 1,000 mL enema, 1 enema, Rectal, TID uyvfhrdu-nnesvmvvcy-lmputhgef, , Topical, TID pantoprazole (ProtoNix) 40 mg [...] Saima Tan MD Division [facility] Images from the original note were not included. Hospitalist Progress Note 09/14/2023 Subjective: Admit Date: 09/09/2023 PCP: No primary care provider on file. Room#: W1-431/W6-635 A Brief Hospital course: Patient is 47-year-old [...] 1,000 mL enema, 1 enema, Rectal, TID lszorqli-vrqabdinvt-nnkmbszbk, , Topical, TID pantoprazole (ProtoNix) 40 mg [...] Saima Tan MD [facility] Images from the original note were [...] Saima Tan MD [facility] Images from the original note were [...] Surgery PGY-1 09/12/23 4:53 PM Pager # [phone] This note may have been dictated using [employer] Medical Practice Edition 2.6 and/or Luminate Voice Recognition Feature. The document was proofread; however, unrecognized voice recognition power technician errors may be present. Associated attestation - [...] of Trauma Department of Surgery [facility] ~~~~~~~~~~~~~~~~~~~~~~~~~~~~~~~~ ~~~~~~~~~~~~~~~~~~~~~~~~~~~~~ This note may have been dictated using [employer] Medical Practice Edition 2.6 and/or Luminate Voice Recognition Feature. The document was proofread; however, unrecognized voice recognition power technician errors may be present. [facility] ADMISSION MEDICATION RECONCILIATION Date: 09/12/23 [facility] Patient Name: Carolina Hightower Allergies: Aspirin, [...] on last fill dates from patient's [facility]. Home medications to restart if there [...] muscle mass loss Fluid Accumulation: Mild Ascites Emergency Planner Strength: Not Performed Nutrition Assessment: 47yo F [...] On: Kcal/kg Weight Used for Energy Requirements: [place] Weight for Energy Calculation (kg): 50 kg Total Energy Requirements (kcals/day): 27-32 kcal/kg = 8355-3621 kcal/day Weight Used for Protein Requirements: [place] Weight in Kg Used for Protein Requirements: [...] 05/26/22 198#) % Weight Change (Calculated): 2.8 [place] Body Weight (lbs) (Calculated): 110 lbs [place] Body Weight (Kg) (Calculated): 50 kg % [place] Body Weight (Calculated): 186.9 % BMI (kg/m2) [...] soon to determine Latha Lester RD Contact: *[phone] Images from the original note were not included. Hospitalist Progress Note 09/12/2023 Subjective: Admit Date: 09/09/2023 PCP: No primary care provider on file. Room#: W7-726/W7-605 A Brief Hospital course: Patient is 47-year-old [...] Judah Valentine MD Division [facility] Nutrition rescreen completed. Patient is NPO/Clear [...] to follow closely. documented in this encounter [facility] 09-15-2023 Hospital course Narrative Discharge Summary [...] SIGNIFICANT DIAGNOSTIC STUDIES: US guided abdominal paracentesis [[id number]] Collected: 09/14/23 1135 Order Status: Completed Updated: [...] 11:36 AM EST US guided abdominal paracentesis [[id number]] Collected: 09/10/23853 Order Status: Completed Updated: 09/10/23854 [...] AM EST CT abdomen pelvis w contrast [[id number]] Collected: 09/09/232018 Order Status: Completed Updated: 09/09/232028 Narrative: Patient Name: CAROLINA HIGHTOWER : 1975 [facility]#: [id number] Exam Date/Time: 09/09/2023 20:11 Procedure: CT ABDOMEN [...] 8:28 PM EST XR chest 1 view [[id number]] Collected: 09/09/231846 Order Status: Completed Updated: 09/09/231848 Narrative: Patient Name: CAROLINA HIGHTOWER : 1975 [facility]#: [id number] Exam Date/Time: 09/09/2023 18:44 Procedure: XR CHEST [...] Your Medications These medications were sent to [facility] - [place], [place] - [address] [place] [place] [address] desvenlafaxine 100 MG 24 hr tablet doxepin 10 MG capsule traZODone 100 MG tablet DIET: Adult diet Regular ACTIVITY: No restriction. COMPLEXITY OF FOLLOW UP: [] Moderate Complexity: follow up within 7-14 calendar days (75838) [] Severe Complexity: follow up within 7 calendar days (83716) FOLLOW UP TESTING, PENDING RESULTS OR REFERRALS AT TRANSITIONAL CARE VISIT: [] Yes [] No PENDING STUDIES: DISPOSITION: Home FACILITY/HOME CARE AGENCY NAME: Follow up with Cristiana Strauss MD [address] [place] [address] 600 [facility] [phone] Schedule an appointment as soon as possible [...] 09/15/2023, 12:04 PM documented in this encounter [facility] 09-15-2023 Note Hospitalist Progress Note 09/15/2023 [...] 1,000 mL enema, 1 enema, Rectal, TID icvrxytb-wtnjbmcvxw-zkamhrksb, , Topical, TID pantoprazole (ProtoNix) 40 mg [...] Pedersen MD [facility] Division of Hospitalist Medicine [facility] 09-14-2023 Note Formatting of this n ote might be different from the original. Chart reviewed. Patient had paracentesis today with 1700 ml removed. Surgery is following patient for likely ileus -->no plans for intervention and recommend ADAT. Current discharge plan is home no needs once medically stable. [facility] 09-14-2023 Note Formatting of this n ote might be different from the original. Chart reviewed. Patient had paracentesis today with 1700 ml removed. Surgery is following patient for likely ileus -->no plans for intervention and recommend ADAT. Current discharge plan is home no needs once medically stable. [facility] 09-14-2023 Note Hospitalist Progress Note 09/14/2023 [...] 1,000 mL enema, 1 enema, Rectal, TID gymnfmlg-fybvjipqhh-pvhaiprmg, , Topical, TID pantoprazole (ProtoNix) 40 mg [...] Pedersen MD [facility] Division of Hospitalist Medicine [facility] 09-14-2023 Note Formatting of this n ote might be different from the original. Patient to ultrasound department for paracentesis. History, medications and allergies reviewed. Samuel Pastor PA-C in to speak with patient. Informed consent obtained. 1700 mL clear yellow colored fluid removed. Patient tolerated procedure well. Bandaid applied to site. Patient discharged to [facility] 09-14-2023 Note Formatting of this n ote might be different from the original. Patient to ultrasound department for paracentesis. History, medications and allergies reviewed. Samuel Pastor PA-C in to speak with patient. Informed consent obtained. 1700 mL clear yellow colored fluid removed. Patient tolerated procedure well. Bandaid applied to site. Patient discharged to [facility] 09-13-2023 Note Hospitalist Progress Note 09/13/2023 Subjective: Admit Date: 09/09/2023 PCP: No primary care provider on file. Room#: [facility]726/[facility] A Brief Hospital course: Patient is 47-year-old [...] Pedersen MD Rap[facility] Division of Hospitalist Medicine [facility] 09-13-2023 Note Care Management Prog ress Note [...] Stay (Days): 4 GMLOS: No GMLOS Documented [facility] 09-13-2023 Note Formatting of this n [...] Stay (Days): 4 GMLOS: No GMLOS Documented [facility] 09-13-2023 Note Formatting of this n [...] Stay (Days): 4 GMLOS: No GMLOS Documented [facility] 09-12-2023 Note Hospitalist Progress Note 09/12/2023 [...] Medicine [facility] 09-12-2023 Note Formatting of this n ote might be different from the original. Care Managment Initial Assessment Date: 09/12/2023 Patient Name: Carolina Hightower : 1975 Patient Information Source of Information: Patient Cognition/Language: WFL - Within Functional Limits Permission given to speak with patient electroplating sales representative/caregiver as indicated: Yes Confirmation of Payer with patient/family: Yes Payer Name: [employer] [place]: No Confirmation of Primary Care Physician: Confirmed [...] pain, nausea and vomiting, hx: polysubstance abuse. NE diet and Addiction Medicine consulted. Discharge plan home with Significant Other. Meg Herrmann RN [facility] 09-12-2023 Note Formatting of this n ote might be different from the original. Care Managment Initial Assessment Date: 09/12/2023 Patient Name: Carolina Hightower : 1975 Patient Information Source of Information: Patient Cognition/Language: WFL - Within Functional Limits Permission given to speak with patient electroplating sales representative/caregiver as indicated: Yes Confirmation of [...] pain, nausea and vomiting, hx: polysubstance abuse. NE diet and Addiction Medicine consulted. Discharge plan home with Significant Other. Meg Herrmann RN [facility] 09-11-2023 Note Formatting of this n ote might be different from the original. Attempted to complete Initial assessment over the phone. Patient currently unavailable/off unit. Will try again as time allows. TCC will follow. [facility] 09-11-2023 Note Formatting of this n ote might be different from the original. Attempted to complete Initial assessment over the phone. Patient currently unavailable/off unit. Will try again as time allows. TCC will follow. [facility] 09-11-2023 Note Hospitalist Progress Note 09/11/2023 Subjective: [...] Medicine [facility] 09-11-2023 Note ADDICTION MEDICINE CONSULTATION H&P Patient: [...] Physical Exam Vi (more content not included)... [facility] 09-11-2023 Hospital Discharg e instructions Jozef Cordova MD - 09/11/2023 11:48 AM EST Images from the original note were not included. [facility] Addiction Medicine Intensive Outpatient Program [place] ([facility]): [phone] [place]: [phone] [place]: [phone] Behavioral Health Intensive Outpatient Program [place] ([facility]): [phone] [place]: [phone] First [facility] [place] ([facility]): [phone] [place]: [phone] Partial Hospitalization Program [place] ([facility]): [phone] Tra[facility] Stress [facility] [place] ([facility]): [phone] [facility] [place] ([facility]): [phone] Alcoholics Anonymous Meetings [email or web address] [address] [place] [address], [address], [place] [address] Saima Tan MD - 09/15/2023 12:01 PM EST F/U with PCP, GI, Addiction Medicine documented in this encounter [facility] 09-11-2023 Consult note Associated Order (s): [...] 09/09/2023 [facility]: [facility] 1975 [id number] Exam Date/Time: 09/09/2023 20:11 Procedure: CT ABDOMEN [...] 455 ms QTC Interval 501 ms P [place] 55 degrees QRS [place] -7 degrees T Wave [place] 28 degrees CO Interval 157 ms CBC auto differential Collection [...] clinical information on the day of visit. [facility] 09-11-2023 Consult note Associated Order [...] 09/09/2023 Patient Name: CAROLINA HIGHTOWER : 1975 [id number] Exam Date/Time: 09/09/2023 18:44 Procedure: XR CHEST [...] 455 ms QTC Interval 501 ms P [place] 55 degrees QRS [place] -7 degrees T Wave [place] 28 degrees CO Interval 157 ms CBC auto differential Collection [...] day of visit. documented in this encounter [facility] 09-11-2023 Nurse Note Pt was found wandering the hospital by security, confused. Pt brought back by security and she said she was going outside to smoke. She was very upset that she could not have a smoke. Pt threatened to punch someone in the face. Pt is confused. [facility] 09-11-2023 Nurse Note Pt was found wandering the hospital by security, confused. Pt brought back by security and she said she was going outside to smoke. She was very upset that she could not have a smoke. Pt threatened to punch someone in the face. Pt is confused. documented in this encounter [facility] 09-10-2023 Note Attending History an d [...] hours. I revie (more content not included)... [facility] 09-10-2023 History and physical note Images [...] Division of Hospitalist Medicine Inpatient Medical Services/[facility] [employer] Work Phone: 09-10-2023 History and physical note [...] Relation: Spouse Cindi Salas MD [facility] documented in this encounter [facility] 09-10-2023 Emergency department Note Report given to 7W at this time. Transport en route. Laura Antony RN 09/10/23 050 [facility] 09-10-2023 Emergency department Note Report given to 7W at this time. Transport en route. Laura Antony RN 09/10/23 050 They are here now to transport the patient to [facility] 09/10/23 0447 [facility] ETA 0430 RN will call report in a few :) [facility] 09/10/23 0432 EMERGENCY DEPARTMENT ENCOUNTER Pt Name: [...] Culture. Procedure Abnormality Status --------- ------ Complete Urinalysis[[id number]] Abnormal Final result Please view results for [...] obstruction. Disposition admission to medical service at [facility]. [facility] unfortunately does not have the capacity to perform paracentesis if deemed necessary. Given this illness provider would like patient be transferred to [facility] for small bowel obstruction management, general surgery consultation. Discussed with Dr. Salas who accepted patient for transfer. Patient will be transferred to [facility]. PROCEDURES: Unless otherwise noted below, none [...] Provider JOSE Collins 09/09/232117 Emergency Department Encounter [facility] ED Patient: Carolina Hightower : 1975 Date of Evaluation: 09/09/2023 ED Supervising Physician: Lenny Macdonald MD I independently examined and evaluated Carolina Hightower. This will serve as my Supervisory note as the welt drawer of record and shared attestation. I did [...] inpatient medicine team they recommend transfer to [facility] as they do not have IRP abilities over the weekend for paracentesis if required. Recommending bowel rest will be admitted Diagnoses as of 09/12/23 8684 Small bowel obstruction (HCC) Diagnostic tests considered [...] dictating provider for clarification.) Lenny Macdonald MD [facility] Lenny Macdonald MD 09/12/23 1500 Pt c/o abdominal pain that began this afternoon, states that she has hx of cirrhosis. Family states she seems off. documented in this encounter [facility] 09-10-2023 Emergency department Note They are here now to transport the patient to [facility] 09/10/23 0447 [facility] 09-10-2023 Emergency department Note [facility] ETA 0430 RN will call report in a few :) [facility] 09/10/23 0432 [facility] 09-09-2023 Emergency department Triage note Pt c/o abdominal pain that began this afternoon, states that she has hx of cirrhosis. Family states she seems off. [facility] 09-09-2023 Physician Emergency department Note EMERGENCY [...] Culture. Procedure Abnormality Status --------- ------ Complete Urinalysis[[id number]] Abnormal Final result Please view results for [...] obstruction. Disposition admission to medical service at [facility]. [facility] unfortunately does not have the capacity to perform paracentesis if deemed necessary. Given this illness provider would like patient be transferred to [facility] for small bowel obstruction management, general surgery consultation. Discussed with Dr. Salas who accepted patient for transfer. Patient will be transferred to [facility]. PROCEDURES: Unless otherwise noted below, none [...] signed) Emergency Medicine Provider JOSE Collins 09/09/232117 [facility] 09-09-2023 Physician Emergency department Note Emergency Department Encounter [facility] ED Patient: Carolina Hightower : 1975 Date of Evaluation: 09/09/2023 ED Supervising Physician: Lenny Macdonald MD I independently examined and evaluated Carolina Hightower. This will serve as my Supervisory note as the welt drawer of record and shared attestation. I did [...] inpatient medicine team they recommend transfer to [facility] as they do not have IRP [...] dictating provider for clarification.) Lenny Macdonald MD [facility] Lenny Macdonald MD 09/12/23 1500 [employer] Phone: 03-24-2023 Miscellaneous Notes Attempted to contact [...] advise. Miladis Blair documented in this encounter [facility] 01-27-2023 Miscellaneous Notes Pt notified. Melisa [...] medication names. Please send RX to [facility] in [place] and advise patient when these have been ordered by provider per patient request. Patient has been identified by name and birthdate. Duration of symptoms: months Person calling: self Call patient at: at home [phone] (home) [phone] (cell) Was an appointment scheduled: No Closing statement: Results or non-symptom based questions: Thank you for calling [facility], your call will be returned within the next business day. Poornima Brown [facility] documented in this encounter [facility] 01-25-2023 Miscellaneous Notes January 26, 2023 PID: [id number] Carolina Highotwer [facility] [address] [address] Dear Ms. Hightower, Your recent breast imaging [...] who ordered/prescribed your screening mammogram: Please call [phone] or [phone]: [phone] to schedule an appointment for your additional [...] and reports are kept on file at [facility] as part of your permanent medical record, and are available for your continuing care. Thank you for allowing us to help in meeting your health care needs. Sincerely, Dr. Estrada Interpreting Radiologist [facility] (Additional imaging) documented in this encounter [facility] 12-02-2022 Note HNO ID: [id number] Author: JOSE Vega Service: ? Author Type: Physician Oracle Fusion Middleware Developer Type: Progress Notes Filed: 12/02/2022 1:01 PM Note Text: This note was created using [employer] International[employer]. Subjective Carolina Hightower is a 47 year [...] PAST SURGICAL HISTORY OF 2018 liver bx [facility] ALLERGIES Aspirin, Bupropion, Codeine, Prednisone, [...] and questions were (more content not included)... [facility] 12-02-2022 History of Jose t illness Narrative Images from the original note were not included. This note was created using [employer]. Subjective Carolina Hightower is a 47 year [...] PAST SURGICAL HISTORY OF 2018 liver bx [facility] ALLERGIES Aspirin, Bupropion, Codeine, Prednisone, [...] evaluation. JOSE Vega documented in this encounter [facility] 10-02-2022 Miscellaneous Notes Left message of results on secure voicemail. Kayleen Rapp MA Please call patient and inform that her wound culture is negative. She can quit taking the ATB. She needs to follow up as directed. documented in this encounter [facility] 09-29-2022 History of Presen t illness Narrative [...] Ananda Prabhakar MD documented in this encounter [facility] 09-15-2022 History of Presen t illness Narrative POPULATION HEALTH NAVIGATION OUTREACH Action/I September 15, 2022 1:09 PM Patient is on [facility] Gap list for the following [facility] Gaps F32.9 - Major depression LILLY [...] 2022 1:09 PM documented in this encounter [facility] 06-23-2022 Miscellaneous Notes Her dose was changed to 100 mg bid, and a prescription was sent for this at her last appt. Dacia Acosta MD This request is from [employer]. Our prescription is 100 mg taken twice [...] 10/2022 was cancelled. documented in this encounter [facility] 05-24-2022 History of Presen t illness Narrative TRANSITION CARE MANAGEMENT (TCM) INITIAL CONTACT Executive Staff Assistant Outreach Provider Action/FYI: 7 day TCM Pt [...] might be hidden SUMMARY: -Pt discharged from [facility] on 05/21/22. -Admitted for: Acute Hepatic Encephalopathy Below copied from [facility] [employer]: History of Present Illness Chief Complaint: [...] the past. She is at a [facility]. She is not on lactulose or rifaximin. [...] This patient was seen in conjunction with GANG DRILL OPERATOR, Kaylin. I have independently interviewed and [...] provider to review documented in this encounter [facility] 05-24-2022 Miscellaneous Notes Pt notified. She will [...] Carolina called, sounded very confused was at [facility], thinks got D/C 05/21 for a fall, swelling on the brain. Please advise, . Records located in scanning on PCP desk. Ledy Orantes Ma Carolina Hightower is calling Dacia Acosta MD today Patient was at [facility] this weekend from fall; injury to her head. Patient is confused with information the hospital told her at discharge. Asking the doctor review her records and return call to discuss findings. Patient can be reached at [phone] documented in this encounter [facility] 05-15-2022 Miscellaneous Notes Reason for Call: chin abscess w/ severe pain, new severe headache Outcome: Pt advised to see a physician within 4 hrs. She understands the recommendation and prefers to go to the [place] ED. See note below. Reason for Disposition [...] she was dx'ed w/ MRSA per the [facility] on 05/12. 9. OTHER SYMPTOMS: Pt also [...] recommendation and prefers to go to the [place] ED. Pt states she can not get to [facility] by 3:30pm. Pt refuses offer to speak with virtualist and prefers to have someone take her to the [place] ED. documented in this encounter [facility] 05-10-2022 History of Presen t illness Narrative Chief Complaint Patient presents with: Follow Up HPI Carolina Hightower is a 46 year old female who presents here today for a wound check. Pt scheduled today for a follow up on a wound check. Pt seen in [facility] on 05/09/22 for evaluation of pain and [...] pharmacy closing yesterday. Also has yet to occupational health nurse supervisor today. Pain a 9/10 and described as [...] PAST SURGICAL HISTORY OF 2018 liver bx [facility] Family History FAMILY HISTORY Problem Relation [...] as instructed every 4 hours as needed. Cxqljjahfsejxul-Hrktkrdel-UN (BROMFED DM) 2-30-10 mg/5 mL syrup Take [...] 1. Dermatitis - ICD9: 692.9, ICD10: L30.9 supervisor beet end the antibiotics as ordered in [facility]; call if not improved after the 5 days of treatment; she may need additional medication Follow up with Derm as scheduled Medical Decision Making: Problems: Low: Acute, uncomplicated illness or injury Risk: Moderate: Drug management Medical Decision Making Level: 3 - Low Dacia Acosta MD documented in this encounter [facility] 05-09-2022 History of Presen t illness Narrative [...] history is provided by the patient. No language path was used. Rash Review of Systems Constitutional: [...] PAST SURGICAL HISTORY OF 2018 liver bx [facility] ALLERGIES Aspirin, Bupropion, Codeine, Prednisone, [...] (Patient not taking: Reported on 03/11/2022 ) Ksazygkflmmikiq-Aokyczkxi-EE (BROMFED DM) 2-30-10 mg/5 mL syrup^Take 5-10 [...] to the ER if anything worsens. Blanca Daswon APRN.DEEPIKA documented in this encounter [facility] 05-07-2022 Miscellaneous Notes Called and spoke to [...] Please advise. Patient can be reached at [phone]. Patient doesn't use mychart very well. documented in this encounter [facility] 03-11-2022 History of Presen t illness Narrative [...] PAST SURGICAL HISTORY OF 2018 liver bx [facility] ALLERGIES Aspirin, Bupropion, Codeine, Prednisone, [...] as instructed every 4 hours as needed. Kxpvtyxhydcwlko-Fvqhmznyp-VZ (BROMFED DM) 2-30-10 mg/5 mL syrup Take [...] APRN.CNP This note was partially generated using Savvify voice recognition system. Note was reviewed for accuracy. There may be minor misspellings or grammar miscues with [employer] voice recognition. documented in this encounter [facility] 03-11-2022 Instructions Tresa Wells APRN.CNP - 03/11/2022 2:41 PM EDT 1.) Start keflex for skin infection 2.) Try not to touch face to prevent more bacterial growth. 3.) Recommend a gentle cleanser such as Cetaphil face wash. 4.) Schedule appointment with dermatology: Local would be Boaz Narvaez or Donta Frausto. 5.) Follow up as needed. documented in this encounter [facility] 03-11-2022 Miscellaneous Notes Pt has an appt today with Tresa Wells CNP this can be filled at that time. Hasn't been seen since 08/21/21. Ledy Orantes Ma Please send gabapentin to [facility] in [place]. Thank you. documented in this encounter [facility] 01-12-2022 Miscellaneous Notes Left message for patient with results and recommendations.Jen Neely LPN Negative for flu B, covid and positive for flu A. Please notify thank you documented in this encounter [facility] 01-11-2022 Instructions Becca Singer APRN.DEEPIKA - 01/11/2022 [...] inability to swallow. documented in this encounter [facility] 01-11-2022 History of Presen t illness Narrative [...] have confirmed and edited as necessary, the [facility] Review of Systems Constitutional: Negative for [...] in 24-48 hours with results, available on [facility] - COVID WITH FLUA+B, ROUTINE Advised [...] Becca Singer APRN.DEEPIKA documented in this encounter [facility] Diagnosis Bacterial skin infection- Primary Unspecified local infection of skin and subcutaneous tissue Acne vulgaris Other acne Chronic midline low back pain with bilateral sciatica [facility] Encounter for screening mammogram for breast cancer [facility] Diagnosis Wound check, abscess- Primary Encounter for other specified aftercare [facility] Diagnosis Dermatitis- Primary Contact dermatitis and other eczema, due to unspecified cause [facility] Diagnosis Chronic midline low back pain with bilateral sciatica [facility] Diagnosis Cellulitis of chin- Primary Cellulitis and abscess of face Picking own skin Other disorder of impulse control URI, acute Acute upper respiratory infections of unspecified site [facility] Diagnosis Skin infection- Primary Unspecified local infection of skin and subcutaneous tissue [facility] Diagnosis Cellulitis of chin Cellulitis and abscess of face [facility] Diagnosis Low back pain, unspecified back pain laterality, unspecified chronicity, unspecified whether sciatica present [facility] Diagnosis Encounter for screening mammogram for breast cancer [facility] Diagnosis Small bowel obstruction (HCC)- Primary Unspecified intestinal obstruction Small bowel obstruction (HCC) Unspecified intestinal obstruction Polysubstance use disorder [facility] Diagnosis Open wound of skin- Primary documented in this encounter [facility] for referral (narrative)* Diagnostic Procedure Only (Routine) - Pending Review Specialty Diagnoses / Procedures Referred By Marivel cao Referred To Contact [facility] Diagnoses Encounter for screening mammogram for breast cancer Procedures JEANETH SCREENING SCREENING MAMMOGRAPHY BI 2-VIEW BREAST INC Dacia Rice MD [address] [place] [address] [facility] [address] [place] [address] Referral ID Status Reason Start Date Expiration Date Visits Requested Visits Authorized [id number] Pending Review Auto-Generat ed Referral 03/24/2022 04/23/2023 1 1 [facility] for referral (narrative)* Diagnostic Procedure Only (Routine) - Closed Specialty Diagnoses / Procedures Referred By Marivel cao Referred To Contact [facility] Diagnoses Encounter for screening mammogram for breast cancer Procedures JEANETH SCREENING SCREENING MAMMOGRAPHY BI 2-VIEW BREAST INC Dacia Rice MD [address] [place] [address] [facility] [address] [place] [address] Referral ID Status Reason Start Date Expiration Date V isits Requested Visits Authorized [id number] Closed Auto-Generate d Referral 03/24/2022 04/23/2023 1 1 [facility] for visit Narrative* Diagnostic Procedure Only (Routine) - Closed Specialty Diagnoses / Procedures Referred By Marivel cao Referred To Contact [facility] Diagnoses Encounter for screening mammogram for breast cancer Procedures JEANETH SCREENING SCREENING MAMMOGRAPHY BI 2-VIEW BREAST INC Dacia Rice MD [address] [place] [address] [facility] [address] [place] [address] Referral ID Status Reason Start Date Expiration Date V isits Requested Visits Authorized [id number] Closed Auto-Generate d Referral 03/24/2022 04/23/2023 1 1 [facility] Summary Purpose Family History No Family History Records FoundNo Family History Records FoundNo Family History Records FoundNo Family History Records FoundNo Family History Records Found Advance Directives No Advanced Directives Records FoundDocuments on File Type Date Recorded Patient Faculty Member Expl anation Advance Directive(s) 08/05/2018 8:00 PM Advance Directive(s) 08/04/2018 9:24 AM Documents on File Type Date Recorded Patient Faculty Member Expl anation Advance Directive(s) 08/05/2018 8:00 PM [...] vulgaris Procedures CONSULT TO DERMATOLOGY Tresa Wells, [employer] [address] [place] [address] Referral ID Status Reason Start Date Expiration Date Visits Requested Visits Authorized [id number] Ref Not Required PCP Requested Referral 03/11/2022 03/11/2023 1 1 Specialty Diagnoses / Procedures Referred By Contac t Referred To Contact Saima Tan MD [address] [place] [address] Referral ID Status Reason Start Date Expiration Date V isits Requested Visits Authorized [id number] Pending Review 1 1 Specialty Diagnoses / Procedures Referred By Contac t Referred To Contact Dermatology Diagnoses Open wound of skin Procedures CONSULT TO DERMATOLOGY Williams Salvador PA-C [address] [place] [address] Referral ID Status Reason Start Date Expiration Date Visits Requested Visits Authorized [id number] Ref Not Required PCP Requested Referral 11/01/2023 10/31/2024 1 1 Additional Source Comments INFORMATION SOURCE (unrecogn ized section and content) DATE CREATED AUTHOR AUTHOR'S ORGANIZ ATION 09/03/2018 [facility] DATE CREATED AUTHOR AUTHOR'S ORGANIZ ATION 11/10/2021 [facility] DATE CREATED AUTHOR AUTHOR'S ORGANIZ ATION 10/02/2023 [facility] DATE CREATED AUTHOR AUTHOR'S ORGANIZ ATION 11/05/2023 [facility] Source Comments (unrecognize d section and content) In the event this informatio n is protected by the Federal Confidentiality of Alcohol and Drug Abuse Patient Records regulations: The Federal rules restrict any use of the information to criminally investigate or prosecute any alcohol or drug abuse patient.[facility] the event this information is protected by the Federal Confidentiality of Alcohol and Drug Abuse Patient Records regulations: The Federal rules restrict any use of the information to criminally investigate or prosecute any alcohol or drug abuse patient.[facility] the event this information is protected by the Federal Confidentiality of Alcohol and Drug Abuse Patient Records regulations: The Federal rules restrict any use of the information to criminally investigate or prosecute any alcohol or drug abuse patient.[facility] the event this information is protected by the Federal Confidentiality of Alcohol and Drug Abuse Patient Records regulations: The Federal rules restrict any use of the information to criminally investigate or prosecute any alcohol or drug abuse patient.[facility] the event this information is protected by the Federal Confidentiality of Alcohol and Drug Abuse Patient Records regulations: The Federal rules restrict any use of the information to criminally investigate or prosecute any alcohol or drug abuse patient.[facility] the event this information is protected by the Federal Confidentiality of Alcohol and Drug Abuse Patient Records regulations: The Federal rules restrict any use of the information to criminally investigate or prosecute any alcohol or drug abuse patient.[facility] the event this information is protected by the Federal Confidentiality of Alcohol and Drug Abuse Patient Records regulations: The Federal rules restrict any use of the information to criminally investigate or prosecute any alcohol or drug abuse patient.[facility] the event this information is protected by the Federal Confidentiality of Alcohol and Drug Abuse Patient Records regulations: The Federal rules restrict any use of the information to criminally investigate or prosecute any alcohol or drug abuse patient.[facility] the event this information is protected by the Federal Confidentiality of Alcohol and Drug Abuse Patient Records regulations: The Federal rules restrict any use of the information to criminally investigate or prosecute any alcohol or drug abuse patient.[facility] the event this information is protected by the Federal Confidentiality of Alcohol and Drug Abuse Patient Records regulations: The Federal rules restrict any use of the information to criminally investigate or prosecute any alcohol or drug abuse patient.[facility] the event this information is protected by the Federal Confidentiality of Alcohol and Drug Abuse Patient Records regulations: The Federal rules restrict any use of the information to criminally investigate or prosecute any alcohol or drug abuse patient.[facility] the event this information is protected by the Federal Confidentiality of Alcohol and Drug Abuse Patient Records regulations: The Federal rules restrict any use of the information to criminally investigate or prosecute any alcohol or drug abuse patient.[facility] the event this information is protected by the Federal Confidentiality of Alcohol and Drug Abuse Patient Records regulations: The Federal rules restrict any use of the information to criminally investigate or prosecute any alcohol or drug abuse patient.[facility] the event this information is protected by the Federal Confidentiality of Alcohol and Drug Abuse Patient Records regulations: The Federal rules restrict any use of the information to criminally investigate or prosecute any alcohol or drug abuse patient.[facility] the event this information is protected by the Federal Confidentiality of Alcohol and Drug Abuse Patient Records regulations: The Federal rules restrict any use of the information to criminally investigate or prosecute any alcohol or drug abuse patient.[facility] the event this information is protected by the Federal Confidentiality of Alcohol and Drug Abuse Patient Records regulations: The Federal rules restrict any use of the information to criminally investigate or prosecute any alcohol or drug abuse patient.[facility] the event this information is protected by the Federal Confidentiality of Alcohol and Drug Abuse Patient Records regulations: The Federal rules restrict any use of the information to criminally investigate or prosecute any alcohol or drug abuse patient.[facility] the event this information is protected by the Federal Confidentiality of Alcohol and Drug Abuse Patient Records regulations: The Federal rules restrict any use of the information to criminally investigate or prosecute any alcohol or drug abuse patient.[facility] the event this information is protected by the Federal Confidentiality of Alcohol and Drug Abuse Patient Records regulations: The Federal rules restrict any use of the information to criminally investigate or prosecute any alcohol or drug abuse patient.[facility] Campus[facility] the event this information is protected by the Federal Confidentiality of Alcohol and Drug Abuse Patient Records regulations: The Federal rules restrict any use of the information to criminally investigate or prosecute any alcohol or drug abuse patient.[facility] Campus[facility] the event this information is protected by the Federal Confidentiality of Alcohol and Drug Abuse Patient Records regulations: The Federal rules restrict any use of the information to criminally investigate or prosecute any alcohol or drug abuse patient.[facility] Campus[facility] the event this information is protected by the Federal Confidentiality of Alcohol and Drug Abuse Patient Records regulations: The Federal rules restrict any use of the information to criminally investigate or prosecute any alcohol or drug abuse patient.[facility] Campus[facility] the event this information is protected by the Federal Confidentiality of Alcohol and Drug Abuse Patient Records regulations: The Federal rules restrict any use of the information to criminally investigate or prosecute any alcohol or drug abuse patient.[facility] Reason for Visit (unrecogniz ed section [...] obstruction (HCC) Procedures . Cindi Salas MD [address] [address] [facility] [address] [place] [phone] Referral ID Status Reason Start Date Expiration Date Visits Re quested Visits Authorized [id number] 1 1 Reason Comments Derm Problem Sore on chin, states has been there for years, she has a hard time not touching it, painful Care Teams (unrecognized sec tion and content) Segregator Relationship Specialty Start Date End Date Dacia Acosta MD [address] [facility] [place] [address] PCP - General Family Practice 08/24/10 Segregator Relationship Specialty Start Date End Date Dacia Acosta MD [address] [facility] [place] [address] PCP - General Family Practice 08/24/10 Segregator Relationship Specialty Start Date End Date Dacia Acosta MD [address] [facility] [place] [address] PCP - General Family Practice 08/24/10 Segregator Relationship Specialty Start Date End Date Dacia Acosta MD [facility] [place] [address] PCP - General Family Practice 08/24/10 Segregator Relationship Specialty Start Date End Date Dacia Acosta MD [address] [facility] [place] [address] PCP - General Family Practice 08/24/10 Segregator Relationship Specialty Start Date End Date Dacia Acosta MD [address] [facility] [place] [address] PCP - General Family Practice 08/24/10 Segregator Relationship Specialty Start Date End Date Dacia Acosta MD [address] [facility] [place] [address] PCP - General Family Practice 08/24/10 Segregator Relationship Specialty Start Date End Date Dacia Acosta MD [address] [facility] [place] [address] PCP - General Family Practice 08/24/10 Segregator Relationship Specialty Start Date End Date Dacia Acosta MD [address] [facility] [place] [address] PCP - General Family Practice 08/24/10 Segregator Relationship Specialty Start Date End Date Dacia Acosta MD [address] [facility] [place] [address] PCP - General Family Medicine 08/24/10 Segregator Relationship Specialty Start Date End Date Dacia Acosta MD [address] [facility] [place] [address] PCP - General Family Medicine 08/24/10 Segregator Relationship Specialty Start Date End Date Dacia Acosta MD [address] [facility] [place] [address] PCP - General Family Medicine 08/24/10 Segregator Relationship Specialty Start Date End Date Dacia Acosta MD [address] [facility] [place] [address] PCP - General Family Medicine 08/24/10 Segregator Relationship Specialty Start Date End Date Dacia Acosta MD [address] [facility] [place] [address] PCP - General Family Medicine 08/24/10 Segregator Relationship Specialty Start Date End Date Dacia Acosta MD [address] [facility] [place] [address] PCP - General Family Medicine 08/24/10 Segregator Relationship Specialty Start Date End Date Dacia Acosta MD [address] [facility] [place] [address] PCP - General Family Medicine 08/24/10 Segregator Relationship Specialty Start Date End Date Dacia Acosta MD [address] [facility] [place] [address] PCP - General Family Medicine 08/24/10 Segregator Relationship Specialty Start Date End Date Dacia Acosta MD [address] [place] [address] PCP - General Family Medicine 08/24/10 Segregator Relationship Specialty Start Date End Date Dacia Acosta MD [address] [place] [address] PCP - General Family Medicine 08/24/10 Scheduled [...] sedation for opioid reversal - MUST notify interior design consultant provider immediately after first dose, may give [...] - Provider: Haritha Martinez, NASH) sodium chloride (Ahtanum) 0.65 % nasal spray 2 spray 2 [...] BE BASED ON THE PRIMARY CLINICAL RECORDS. [facility] [employer] [facility]. provides no warranty or guarantee of the accuracy or completeness of information in this document.
[2023-11-07 09:24] LABS: AST(SGOT) 92 U/L (15-37); Alanine Aminotransfer ALT/SGPT 51 U/L (13-56); Albumin, Serum 2.5 g/dL (3.2-5.0); Alkaline Phosphatase 142 U/L (45-117); Anion Gap 4 (5-15); BUN 12 mg/dL (7-18); BUN/Creat Ratio 14.4 RATIO (10-20); Bilirubin, Direct 1.03 mg/dL (0.00-0.30); Calcium,Total 8.8 mg/dL (8.5-10.1); Chloride 113 mmol/L (98-107); Creatinine, Serum 0.83 mg/dL (0.55-1.02); EST Glomerular Filtration Rate 77 mL/min (>60); Est Glom Filt Rate - Afr Amer 93 mL/min (>60); Estimated Creatinine Clearance 85.64 ml/min; Globulin 4.5 g/dL (2.2-4.2); Glucose 92 mg/dL (74-106); Lipase 38 U/L (13-75); Potassium 3.6 mmol/L (3.5-5.1); Sodium Level 142 mmol/L (136-145)
[2023-11-07 09:45] LABS: Anisocytosis 2+; Platelet Estimate MOD DEC (ADEQ)
[2023-11-07 10:04] LABS: Body Fluid Mononuclear WBC # 0.123 10^3/uL; Body Fluid Mononuclear WBC % 92.5 %; Body Fluid Polynuclear WBC % 7.5 %; White Blood Count/Body Fluid 0.133 10^3/uL
[2023-11-07 10:05] LABS: Auto B Fluid Analyzer BKGD Ct COUNTS W/IN LIMITS (W/IN LIMITS)
[2023-11-07 10:06] LABS: Appearance/Body Fluid SL CLDY; Color/Body Fluid LT YEL; Source- Body Fluid OTHER
[2023-11-07 10:40] LABS: Red Cell Count/Body Fluid 116 /mm3
[2023-11-07 10:41] VITALS: BP 127/64; PULSE 72; RESP 16; O2SAT 98
[2023-11-07 12:05] LABS: Body Fluid QC Type(s) BF1Q; Lymphocytes 21 %; Monocytes 2 %; Neutrophil (Segs) 3 %; Other Cell Type/BF 74 %
[2023-11-08 14:17] LABS: Pathologist Comment/Body Fluid Reviewed
== END 2023-11-07 10:43 | disposition home or self-care (01) ==
PROVIDERS: Emergency Provider Emergency Medicine; PCP Family Medicine; Visit Provider Emergency Medicine
DX: R18.8 Other ascites (principal); K74.60 Unspecified cirrhosis of liver; J44.9 Chronic obstructive pulmonary disease, unspecified; D69.6 Thrombocytopenia, unspecified; R30.9 Painful micturition, unspecified; Z91.148 Patient's other noncompliance with medication regimen for other reason; R14.0 Abdominal distension (gaseous); K21.9 Gastro-esophageal reflux disease without esophagitis; D63.8 Anemia in other chronic diseases classified elsewhere; K82.8 Other specified diseases of gallbladder; R35.0 Frequency of micturition; Z79.899 Other long term (current) drug therapy
CPT/HCPCS: 49083; 80048; 80076; 81001; 81025; 83690; 85025; 85610; 85730; 87070; 87075; 87086; 87205; 89050; 96374; 96375; 96376; 99284; A4216; J2405

== ENCOUNTER 2023-11-10 15:07 | Emergency (ER) | payer MEDICAID, SELFPAY ==
[2023-11-10 15:15] VITALS: BP 80/71; PULSE 51; RESP 18; TEMP 36.3; O2SAT 97
--- NOTE | 2023-11-10 15:49 | EKG12_ITS ---
Test Reason : ABD PAIN Blood Pressure : / mmHG Vent. Rate : 045 BPM Atrial Rate : 045 BPM P-R Int : 158 ms QRS Dur : 078 ms QT Int : 544 ms P-R-T Axes : 063 039 060 degrees QTc Int : 470 ms Sinus bradycardia Low voltage QRS Borderline ECG Confirmed by Ricardo Isaacs ([id number]), videotape editor OBED CHRISTIAN ([id number]) on 11/11/2023 9:46:52 AM Referred By: Confirmed By:Ricardo Isaacs
--- NOTE | 2023-11-10 15:50 | CT_ITS ---
STUDY: CT ABDOMEN AND PELVIS WITH CONTRAST REASON FOR EXAM: Female, 48 years old. abdominal pain RADIATION DOSAGE (If Supplied By Facility): CTDIvol = ( 16.84 ) mGy, DLP = ( 1104.25 ) mGycm TECHNIQUE: Transaxial images were obtained from the dome of the diaphragm to the symphysis pubis without oral contrast. IV 100mL Isovue-300 was administered. Sagittal and coronal images were reconstructed. Individualized dose optimization techniques were used for this CT. COMPARISON: None. FINDINGS: The visualized lung bases demonstrate bilateral infiltrates, left more than right. The visualized portions of the heart are within normal limits. Cirrhosis of the liver. Distended gallbladder and extrahepatic biliary system. Ascites with pericholecystic fluid. Diffuse mesenteric stranding/edema. Normal spleen. Normal pancreas. Normal bilateral adrenal glands. Up to 6 mm calculi in the right kidney. Punctate stone at the lower pole in the left kidney. Possible mild wall thickening of the stomach. Fluid distended left-sided proximal small bowel loops with possible mild wall thickening. Normal colon. The appendix is visualized and appears normal. Normal abdominal aorta. Normal inferior vena cava. Normal retroperitoneum. Normal urinary bladder. Significant pelvic fluid. Normal abdominal wall. Normal osseous structures. CT/Abdomen/Pelvis W IV Cont ONLY IMPRESSION: Bilateral infiltrates, left more than right. Cirrhosis. Ascites. Bilateral nonobstructing renal calculi. Mild wall thickening of the stomach. Fluid distended left-sided proximal small bowel loops with possible mild wall thickening. Electronically Signed: Jamaal Reeves DO at 17:24 EST ,
--- NOTE | 2023-11-10 15:59 | EX.ED.DYSGE1 ---
HPI <CONCHIS Rboles - Last Filed: 11/10/23 18:04> History of Present Illness Chief Complaint: Abd Pain Narrative Narrative: Patient is a 48-year-old female with history of hepatitis C, chronic ascites who receives paracentesis last one was 1 month ago, cirrhosis who has history of not following up, not taking her medications as prescribed. Patient was seen here on 07 November which was 3 days ago, patient did have 1 L of fluid removed from paracentesis in the emergency department. Patient was placed on antibiotics for her UTI. Patient states she felt generalized just feels worse. Patient that she has worsening abdominal pain, nausea and is here for evaluation. PFSH <CONCHIS Robles - Last Filed: 11/10/23 18:04> PFSH Medical History Acute insomnia Alcohol abuse Anemia Anxiety and depression Ascites Chronic pain Cirrhosis of liver COPD (chronic obstructive pulmonary disease) Depression Gastric reflux GERD (gastroesophageal reflux disease) Hepatitis History of diverticulitis History of edema History of pain when walking History of renal disease Hyperbilirubinemia Kidney stones Loss of consciousness Low iron Marijuana use Migraine headache MRSA infection Obesity Open wound Polysubstance abuse Rash Restless legs Seizures Shortness of breath on exertion Sleep apnea Smoker Substance abuse Thrombocytopenia Tobacco use Home Medications desvenlafaxine 100 mg tablet,extended release 24 hour 100 mg PO DAILY NERVE PAIN 02/20/19 [History Last Taken Unknown] Vitamin D3 1,250 mcg OTHER QWEEK SUPPLEMENT 05/20/22 [History Last Taken Unknown] topiramate 100 mg tablet 100 mg PO BID PER GASTRO 05/20/22 [History Last Taken Unknown] trazodone 100 mg tablet 100 mg PO QHS SLEEP #1 TAB 05/21/22 [Rx Last Taken Unknown] aripiprazole 30 mg tablet 30 mg PO DAILY 09/14/22 [History Last Taken Unknown] gabapentin 100 mg capsule 100 mg PO Q12H 07/20/23 [History Last Taken Unknown] furosemide 20 mg tablet (Lasix) 20 mg PO DAILY #90 tabs 10/07/23 [Rx Last Taken 11/09/23] lactulose 20 gram/30 mL oral solution 20 g (30 mL) PO TID 30 days #2,880 mL 10/07/23 [Rx Last Taken Unknown] nadolol 20 mg tablet 20 mg PO DAILY 30 days #30 tabs 10/07/23 [Rx Last Taken Unknown] spironolactone 50 mg tablet 75 mg (1.5 x 50 mg) PO DAILY 30 days #45 tabs 10/07/23 [Rx Last Taken Unknown] furosemide 20 mg tablet (Lasix) 20 mg PO DAILY #30 tabs 11/05/23 [Rx Last Taken Unknown] nadolol 20 mg tablet 20 mg PO DAILY #30 tabs 11/05/23 [Rx Last Taken Unknown] spironolactone 50 mg tablet 75 mg (1.5 x 50 mg) PO DAILY #45 tabs 11/05/23 [Rx Last Taken Unknown] cephalexin 500 mg capsule 500 mg PO TID 7 days #21 caps 11/07/23 [Rx Last Taken Unknown] Allergy/AdvReac Type Severity Reaction Status Date / Time bupropion HCl Allergy SEIZURES Verified 11/10/23 15:15 [From Wellbutrin] codeine Allergy Rash Verified 11/10/23 15:15 Family History Mother Diabetes Father Cancer HX Throat CA. 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, marijuana, heroin and methamphetamine seatbelt use: always do you feel safe at home: Yes ROS <CONCHIS Robles - Last Filed: 11/10/23 18:04> ROS ED ROS Narrative Constitutional: Negative for fever, chills, weight loss. Weakness Eyes: Negative for vision loss, vision change, double vision ENT: Negative for any sore throat, ear pain, congestion Cardiovascular: Negative for any chest pain, tightness, palpitations Respiratory: Negative for any cough, sputum production, hemoptysis, dyspnea, dyspnea on exertion, orthopnea Gastrointestinal: Negative for any vomiting, diarrhea, constipation, blood in stool, blood in vomit. Abdominal pain, nausea : Negative for any urinary frequency, dysuria, retention, blood in urine Muscle skeletal: Negative for any neck pain, back pain Neurological: Negative for any headache, syncope, dizziness Skin: Negative for any rashes, itching, abrasions, lacerations Psychiatric: Negative for any depression, anxiety, stress, suicidal ideation, homicidal ideation Hematologic: Negative for any excessive bruising, easy bleeding EXAM <CONCHIS Robles - Last Filed: 11/10/23 18:04> Physical Exam Narrative Exam Narrative: Vital signs reviewed. Patient is ill-appearing however this could be chronic. Patient is alert and oriented, however she has difficulty with time and how long ago things have happened. Patient is tearful. Patient does appear disheveled. HEET: Head normocephalic atraumatic, TMs clear bilaterally. Posterior pharynx is clear, dry mucous membranes. Nares clear bilaterally. Neck: Supple with no lymphadenopathy or tenderness. No signs of meningismus. Cardiac: Bradycardic rate no murmurs gallops or rubs, equal peripheral pulses bilaterally. Respiratory: Lungs clear to auscultation bilaterally. No chest tenderness. Abdomen: Soft, nontender, patient does have significant distention however patient has history of ascites. No peritoneal signs. No guarding.. No abdominal bruit or pulsatile masses. No hepatosplenomegaly Extremities: No peripheral edema, no signs of gross trauma or deformity. Active full range of motion of all extremities. Neuro: Cranial nerves II through XII intact, no focal neurological deficits. Skin: Clean dry and intact with no rash, purpura, petechiae, vesicles or pustules. Backs/flank: No CVA tenderness, no midline spinal tenderness, no deformity. Psych: Normal mood and affect. No SI, HI or acute psychosis. Const Vital Signs: 11/10/23 15:15 11/10/23 16:07 11/10/23 17:00 Temperature 97.3 F L Temperature Source Temporal Pulse Rate 51 L 40 L 40 L Respiratory Rate 18 18 17 Blood Pressure 80/71 L 107/69 160/91 H Blood Pressure Mean 74 81 114 Pulse Ox 97 95 Oxygen Delivery Method Room Air 11/10/23 17:45 Temperature 96.9 F L Temperature Source Pulse Rate 48 L Respiratory Rate 14 Blood Pressure 114/52 L Blood Pressure Mean 72 Pulse Ox 95 Oxygen Delivery Method Positive unkempt General Appearance ED: unkempt Psych Appearance: unkempt <Dr. Timoteo Gardiner MD - Last Filed: 11/10/23 17:40> Physical Exam Const Vital Signs: 11/10/23 15:15 11/10/23 16:07 11/10/23 17:00 Temperature 97.3 F L Temperature Source Temporal Pulse Rate 51 L 40 L 40 L Respiratory Rate 18 18 17 Blood Pressure 80/71 L 107/69 160/91 H Blood Pressure Mean 74 81 114 Pulse Ox 97 95 Oxygen Delivery Method Room Air 11/10/23 17:45 Temperature 96.9 F L Temperature Source Pulse Rate 48 L Respiratory Rate 14 Blood Pressure 114/52 L Blood Pressure Mean 72 Pulse Ox 95 Oxygen Delivery Method MDM <CONCHIS Robles - Last Filed: 11/10/23 18:04> [facility] Lab Data Labs: Laboratory Results - last 24 hr 11/10/23 16:35 WBC 4.3 L RBC 4.39 Hgb 10.3 L Hct 33.9 L MCV 77.2 L MCH 23.5 L MCHC 30.4 L RDW Std Deviation 59.1 H RDW Coeff of Katalina 21.2 H Plt Count 62 L MPV TNP Immature Gran % (Auto) 0.200 Neut % (Auto) 57.4 Lymph % (Auto) 34.5 Louisa % (Auto) 6.7 Eos % (Auto) 0.7 Baso % (Auto) 0.5 Absolute Neuts (auto) 2.5 Absolute Lymphs (auto) 1.49 Nucleated RBC % 0 Platelet Estimate MOD DEC RBC Morphology N CHROM Anisocytosis 1+ Microcytosis 1+ Ovalocytes RARE PT 19.0 H INR 1.6 Sodium 142 Potassium 4.3 Chloride 113 H Carbon Dioxide 24.0 Anion Gap 5 BUN 9 Creatinine 0.78 Est GFR (MDRD) Af Amer 100 Est GFR (MDRD) Non-Af 83 BUN/Creatinine Ratio 11.5 Glucose 92 Calcium 8.5 Total Bilirubin 1.60 H Direct Bilirubin 0.89 H AST 109 H ALT 46 Alkaline Phosphatase 157 H Ammonia < 10.0 L Total Protein 6.5 Albumin 2.2 L Globulin 4.3 H Lipase 47 Radiography Diagnostic Testing: Clinical Impression(s) from Imaging Studies Abdomen/Pelvis CT 11/10/23 15:50 IMPRESSION: Bilateral infiltrates, left more than right. Cirrhosis. Ascites. Bilateral nonobstructing renal calculi. Mild wall thickening of the stomach. Fluid distended left-sided proximal small bowel loops with possible mild wall thickening. Electronically Signed: Jamaal Reeves DO at 17:24 EST , EKG EKG shows a sinus bradycardia : Attestation: I personally reviewed and interpreted this EKG as follows: Comments: Sinus bradycardia, rate of 45 bpm, WV interval 158 ms, QRS duration 78 ms, no acute ST elevation, no acute infarct noted. Treatment and Re-Evaluation :: Differential diagnosis includes however is not limited to: SBP, elevated ammonia level, noncompliance, alcohol abuse, UTI, sepsis Patient appears to be disheveled, patient complains of generalized abdominal pain and not feeling well. Patient received basic laboratory values, patient received a CT scan of the abdomen pelvis. I will perform CBC, BMP, liver panel, PT/INR, ammonia level. Patient be given 1 L normal saline. Patient be reevaluated. Patient's chest x-ray shows atelectasis, ER attending read it as no acute pneumonia, patient's laboratory studies show anemia with a hemoglobin 10.3 however this is improvement. Patient's PT/INR shows a PT of 19 with an INR 1.6, this is again an improvement. Patient's total bilirubin was 1.6, this is improvement from November 07 when it was 2.1, direct bilirubin 0.89 also an improvement. Ammonia was less than 10. No evidence of any encephalopathy. Patient did receive a CT scan of the abdomen pelvis. This showed bilateral nonobstructing renal calculi mild wall thickening of the stomach, fluid distended left-sided proximal small bowel loops with possible mild wall thickening. At this time, I spoke with the patient at length, patient's heart rates been anywhere between 45 and 55, she is currently on nadolol however she has no history of hypertension. Patient will stop the nadolol until she follows up with her primary care physician. I did give her 1 L of normal saline, Zofran as well as fentanyl. On reevaluation, the patient feels better and is stable for discharge and follow-up outpatient. <Dr. Timoteo Gardiner MD - Last Filed: 11/10/23 17:40> [facility] Narrative Medical decision making narrative: I have personally performed a face to face assessment of the patient and have reviewed the CAMILLE Note. I performed a substantive portion of the visit including all aspects of the following. My lopez findings include: History is [48-year-old female history of hep C and cirrhosis status post recent ultrasound-guided paracentesis. Complaining of abdominal discomfort. No fever.] Exam is [well-appearing 48-year-old vital signs initial blood pressure was 80/71 however repeat of all been above 100 and currently she was 160/90. She is afebrile. She does not look septic toxic. She is no distress. HEENT exam unremarkable. Lungs clear. Heart regular rhythm rate about 50. Abdomen soft. She has ascites. She complains of pain but she is not significantly reproducibly tender. There is no peritoneal signs. No localizing tenderness. No hernia or mass. No signs of obstruction. Moving all 4 extremities. Nontender no edema. Neurologically she is awake and alert with no focal motor deficits.] Medical Decision Making [48-year-old history hep C with cirrhosis complain abdominal pain after paracentesis. CAT scan labs are being done. Labs are basically her baseline. CAT scan showed chronic changes but no obstruction or free air. Patient be discharged home.] Other additions or changes: [None] Lab Data Attestation: I reviewed the patient's lab results. Lab results narrative: CBC shows a white count of 4. H&H 10.3 and 33 at her baseline anemia. Platelets are low at 62,000. PT/INR are 19 and 1. Electrolytes show a gap of 5. A normal BUN of 9 creatinine 0.70. Liver enzymes are chronically elevated. Her lipase is normal at 47. Labs compared to prior labs are her baseline. Labs: Laboratory Results - last 24 hr 11/10/23 16:35 WBC 4.3 L RBC 4.39 Hgb 10.3 L Hct 33.9 L MCV 77.2 L MCH 23.5 L MCHC 30.4 L RDW Std Deviation 59.1 H RDW Coeff of Katalina 21.2 H Plt Count 62 L MPV TNP Immature Gran % (Auto) 0.200 Neut % (Auto) 57.4 Lymph % (Auto) 34.5 Louisa % (Auto) 6.7 Eos % (Auto) 0.7 Baso % (Auto) 0.5 Absolute Neuts (auto) 2.5 Absolute Lymphs (auto) 1.49 Nucleated RBC % 0 Platelet Estimate MOD DEC RBC Morphology N CHROM Anisocytosis 1+ Microcytosis 1+ Ovalocytes RARE PT 19.0 H INR 1.6 Sodium 142 Potassium 4.3 Chloride 113 H Carbon Dioxide 24.0 Anion Gap 5 BUN 9 Creatinine 0.78 Est GFR (MDRD) Af Amer 100 Est GFR (MDRD) Non-Af 83 BUN/Creatinine Ratio 11.5 Glucose 92 Calcium 8.5 Total Bilirubin 1.60 H Direct Bilirubin 0.89 H AST 109 H ALT 46 Alkaline Phosphatase 157 H Ammonia < 10.0 L Total Protein 6.5 Albumin 2.2 L Globulin 4.3 H Lipase 47 Radiography Diagnostic Testing: Clinical Impression(s) from Imaging Studies Abdomen/Pelvis CT 11/10/23 15:50 IMPRESSION: Bilateral infiltrates, left more than right. Cirrhosis. Ascites. Bilateral nonobstructing renal calculi. Mild wall thickening of the stomach. Fluid distended left-sided proximal small bowel loops with possible mild wall thickening. Electronically Signed: Jamaal Reeves DO at 17:24 EST Reading Location ID and State: [facility] / [place] Tel [phone], Service support , Discharge Plan Triage Chief Complaint: Abd Pain ED Midlevel Provider: Geoff oCrdova ED Provider: Timoteo Gardiner Dx/Rx/DC Orders Clinical Impression: Ascites, Bradycardia, Cirrhosis of liver Instructions: Cirrhosis of Liver Dc, ED Bradycardia Prescriptions: No Action desvenlafaxine 100 mg tablet extended release 24hr 100 mg PO DAILY Vitamin D3 1,250 mcg OTHER QWEEK Rx Instructions: TAKES ON MODAY BY MOUTH topiramate 100 mg tablet 100 mg PO BID Rx Instructions: BEFORE MEALS trazodone 100 mg tablet 100 mg PO QHS Qty: 1 0RF aripiprazole 30 mg tablet 30 mg PO DAILY nadolol 20 mg tablet 20 mg PO DAILY 30 Days Qty: 30 2RF Patient Comments: TOOK YESTERDAY, HR 40 IN ED Rx Instructions: Hold for heart less than 50 or systolic blood pressure less than 100 mmHg. spironolactone 50 mg tablet 75 mg PO DAILY 30 Days Qty: 45 2RF lactulose 20 gram/30 mL solution 20 g PO TID 30 Days Qty: 2880 2RF Rx Instructions: And adjust the frequency to have him goal of 3 bowel movements per day furosemide [Lasix] 20 mg tablet 20 mg PO DAILY Qty: 90 0RF furosemide [Lasix] 20 mg tablet 20 mg PO DAILY Qty: 30 0RF spironolactone 50 mg tablet 75 mg PO DAILY Qty: 45 0RF nadolol 20 mg tablet 20 mg PO DAILY Qty: 30 0RF cephalexin 500 mg capsule 500 mg PO TID 7 Days Qty: 21 0RF gabapentin 100 mg capsule 100 mg PO Q12H Patient Comments: Take 1 capsule by mouth twice daily pt taking as needed. Primary Care Provider: Ang Acosta Referrals: Ang Acosta MD [Primary Care Provider] - Activity Restrictions/Additional Instructions: Your laboratory values look better than they did in recent weeks. Your heart rate was between 45 and 55, stop the nadolol and follow-up with your PCP. Return for any worsening symptoms. Disposition Disposition: Home, Self Care
[2023-11-10 16:07] VITALS: BP 107/69; PULSE 40; RESP 18
[2023-11-10] MEDS: 0.9% Normal Saline (1000mL) 1,000 ML 1000 ML IV (16:38)
[2023-11-10 16:55] LABS: Absolute Lymphocyte Count 1.49 X10^3/uL (0.83-4.51); Absolute Neutrophil Count 2.5 X10^3/uL (2.0-7.7); Basophil# 0.02 X10^3/uL; Basophil% 0.5 % (0-1); Eosinophil# 0.03 X10^3/uL; Eosinophils% 0.7 % (0-5); Hematocrit 33.9 % (37-47); Hemoglobin 10.3 g/dL (12.0-15.0); Lymphocyte # 1.49 X10^3/ul (0.83-4.51); Lymphocyte % 34.5 % (19-41); Mean Corp Hgb Conc 30.4 g/dL (32-36); Mean Corpuscular Hgb 23.5 pg (27.0-32.0); Mean Corpuscular Volume 77.2 fL (81-99); Monocyte# 0.29 X10^3/uL; Monocyte% 6.7 % (0-10); NRBC Flagged by Analyzer 0 % (0-5); Neutrophil # 2.48 X10^3/uL (2.7-7.7); Neutrophil % 57.4 % (47-70); POSITIVE COUNT YES; POSITIVE MORPHOLOGY YES; Platelet Count 62 K/mm3 (150-450); RBC Distribution Width CV 21.2 % (11.6-14.6); RBC Distribution Width SD 59.1 fl (35.1-43.9); Red Blood Count 4.39 M/mm3 (4.2-5.4); White Blood Count 4.3 K/mm3 (4.4-11.0)
[2023-11-10 17:00] VITALS: BP 160/91; PULSE 40; RESP 17; O2SAT 95
[2023-11-10 17:06] LABS: International Normalized Ratio 1.6
[2023-11-10 17:08] LABS: AST(SGOT) 109 U/L (15-37); Alanine Aminotransfer ALT/SGPT 46 U/L (13-56); Albumin, Serum 2.2 g/dL (3.2-5.0); Alkaline Phosphatase 157 U/L (45-117); Anion Gap 5 (5-15); BUN 9 mg/dL (7-18); BUN/Creat Ratio 11.5 RATIO (10-20); Bilirubin, Direct 0.89 mg/dL (0.00-0.30); Calcium,Total 8.5 mg/dL (8.5-10.1); Chloride 113 mmol/L (98-107); Creatinine, Serum 0.78 mg/dL (0.55-1.02); Differential Indicated SCAN CRITERIA MET; EST Glomerular Filtration Rate 83 mL/min (>60); Est Glom Filt Rate - Afr Amer 100 mL/min (>60); Globulin 4.3 g/dL (2.2-4.2); Glucose 92 mg/dL (74-106); Lipase 47 U/L (13-75); Potassium 4.3 mmol/L (3.5-5.1); Protein, Total 6.5 g/dL (6.4-8.2); Sodium Level 142 mmol/L (136-145)
[2023-11-10] MEDS: Ondansetron 4 MG/2 ML Vial IV (17:14)
[2023-11-10] MEDS: fentaNYL 100 MCG/2 ML Ampul 50 MCG IV (17:14)
[2023-11-10 17:15] LABS: Ammonia < 10.0 umol/L (11-32)
[2023-11-10 17:22] LABS: Anisocytosis 1+; Microcytosis 1+; Ovalocyte RARE; Platelet Estimate MOD DEC (ADEQ); Red Cell Morphology N CHROM NORMAL (NORM C&C)
[2023-11-10 17:45] VITALS: BP 114/52; PULSE 48; RESP 14; TEMP 36.1; O2SAT 95
== END 2023-11-10 18:12 | disposition home or self-care (01) ==
PROVIDERS: Nurse Practitioner; Emergency Provider Emergency Medicine; PCP Family Medicine; Visit Provider Emergency Medicine
DX: R18.8 Other ascites (principal); K74.60 Unspecified cirrhosis of liver; R11.0 Nausea; R00.1 Bradycardia, unspecified; G89.29 Other chronic pain; F17.210 Nicotine dependence, cigarettes, uncomplicated; Z86.19 Personal history of other infectious and parasitic diseases
CPT/HCPCS: 74177; 80048; 80076; 82140; 83690; 85025; 85610; 93005; 96361; 96374; 96375; 99282; J7030; Q9967; A4216; J2405

== ENCOUNTER 2023-12-04 16:47 | Observation (INO) | payer MEDICAID, SELFPAY ==
[2023-12-04 16:48] VITALS: BP 127/83; PULSE 81; RESP 18; TEMP 35.8; O2SAT 97
--- NOTE | 2023-12-04 17:14 | CT_ITS ---
EXAM: CT ABDOMEN AND PELVIS WITH INTRAVENOUS CONTRAST CLINICAL INDICATION: abdominal pain TECHNIQUE: Helically acquired images were obtained of the abdomen and pelvis with intravenous contrast. This CT exam was performed using one or more of the following dose reduction techniques: automated exposure control, adjustment of the mA and/or kV according to patient size, and/or use of iterative reconstruction technique. CONTRAST: IV 100mL [id number] RADIATION DOSE: CTDIvol = 19.82 mGy, DLP = 1136.49 mGy-cm COMPARISON: 11/10/2023 FINDINGS: LOWER THORAX: Bilateral lower lobe infiltrates worse on the left side suggesting pneumonia. No cardiomegaly. No significant pericardial effusion. ABDOMEN: LIVER: Hepatic cirrhosis. Portal hypertension. GALLBLADDER AND BILE DUCTS: Unremarkable. No calcified gallstones. No gallbladder distention or wall edema. No intra- or extrahepatic biliary ductal dilation. PANCREAS: Unremarkable. No focal cystic or solid mass. SPLEEN: Splenomegaly. ADRENALS: Unremarkable. No nodules. KIDNEYS AND URETERS: Nonobstructive right renal stones measuring up to 10 mm. Normal renal size and position. STOMACH AND BOWEL: Unremarkable. No stomach or bowel distention. No focal inflammatory change. PELVIS: APPENDIX: No evidence of acute appendicitis. BLADDER: Unremarkable. REPRODUCTIVE: Diffuse gallbladder distention suggesting ectopic gallbladder. Unremarkable uterus. Tubal ligation clips noted. ABDOMEN and PELVIS: INTRAPERITONEAL SPACE: Diffuse abdominal ascites. Free fluid in the pelvis. No free air. BONES/JOINTS: Degenerative findings in the lumbar spine. No suspicious lytic or blastic abnormality. SOFT TISSUES: Subcutaneous edema. No discrete abdominal or pelvic wall hernia. VASCULATURE: Paraesophageal varices. Recannulization of the umbilical vein. Abdominal aorta is non-dilated. LYMPH NODES: Unremarkable. No enlarged lymph nodes. CT/Abdomen/Pelvis W IV Cont ONLY IMPRESSION: 1. 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 2. Diffuse abdominal ascites. 3. Splenomegaly. 4. Hepatic cirrhosis. 5. Portal hypertension. 6. Nonobstructive right renal stones measuring up to 10 mm. Electronically Signed: Tejas Bhakta MD at 19:07 EDT ,
[2023-12-04 17:34] LABS: Absolute Lymphocyte Count 1.43 X10^3/uL (0.83-4.51); Absolute Neutrophil Count 3.8 X10^3/uL (2.0-7.7); Basophil# 0.06 X10^3/uL; Eosinophil# 0.14 X10^3/uL; Eosinophils% 2.3 % (0-5); Hematocrit 30.2 % (37-47); Hemoglobin 8.9 g/dL (12.0-15.0); Lymphocyte # 1.43 X10^3/ul (0.83-4.51); Lymphocyte % 23.3 % (19-41); Mean Corp Hgb Conc 29.5 g/dL (32-36); Mean Corpuscular Hgb 24.2 pg (27.0-32.0); Mean Corpuscular Volume 82.1 fL (81-99); Mean Platelet Vol. 9.5 fl (6.2-12.0); Monocyte# 0.66 X10^3/uL; Monocyte% 10.7 % (0-10); NRBC Flagged by Analyzer 0 % (0-5); Neutrophil # 3.83 X10^3/uL (2.7-7.7); Neutrophil % 62.4 % (47-70); POSITIVE COUNT YES; POSITIVE MORPHOLOGY YES; Platelet Count 87 K/mm3 (150-450); RBC Distribution Width CV 27.1 % (11.6-14.6); RBC Distribution Width SD 79.4 fl (35.1-43.9); Red Blood Count 3.68 M/mm3 (4.2-5.4); White Blood Count 6.1 K/mm3 (4.4-11.0)
[2023-12-04 17:36] LABS: Differential Indicated SCAN CRITERIA MET
[2023-12-04 17:41] LABS: International Normalized Ratio 1.7
[2023-12-04] MEDS: Ondansetron 4 MG/2 ML Vial IV ×2 (17:42→18:18)
[2023-12-04 17:45] LABS: Differential Comment SCANNED
[2023-12-04 17:46] LABS: Anisocytosis 2+; Hypochromasia 1+; Macrocytosis 1+; Microcytosis 1+
[2023-12-04 17:47] LABS: Target Cells RARE
[2023-12-04 17:49] VITALS: BMI 34.6
[2023-12-04 17:51] LABS: ALB/GLOB Ratio 0.4 RATIO (0.9-2.4); AST(SGOT) 58 U/L (15-37); Alanine Aminotransfer ALT/SGPT 47 U/L (13-56); Albumin, Serum 2.2 g/dL (3.2-5.0); Alkaline Phosphatase 143 U/L (45-117); Anion Gap 5 (5-15); BUN 10 mg/dL (7-18); BUN/Creat Ratio 12.2 RATIO (10-20); Calcium,Total 8.4 mg/dL (8.5-10.1); Chloride 110 mmol/L (98-107); Creatinine, Serum 0.82 mg/dL (0.55-1.02); EST Glomerular Filtration Rate 79 mL/min (>60); Est Glom Filt Rate - Afr Amer 95 mL/min (>60); Estimated Creatinine Clearance 83.21 ml/min; Globulin 5.1 g/dL (2.2-4.2); Glucose 117 mg/dL (74-106); Lipase 30 U/L (13-75); Protein, Total 7.3 g/dL (6.4-8.2); Sodium Level 142 mmol/L (136-145)
[2023-12-04 17:58] LABS: Mucous, Urine 0 SEEN /hpf (<or=2+)
[2023-12-04 18:00] LABS: Color, Urine Yellow (Yellow); Glucose, Dipstick Normal (Normal); Ketone-Dipstick 15 mg/dl (Negative); Leukocyte Esterase-Dipstick 500 /ul (Negative); Nitrite-Dipstick Positive (Negative); Occult Blood-Urine 50 /ul (Negative); Protein-Dipstick 30 mg/dl (Negative); Specific Gravity, Urine 1.015 (1.002-1.030); Urine Clarity Sl. Cloudy (Clear); Urine Urobilinogen 8 mg/dl (Normal); Urine pH 6.5 (5.0 - 8.0)
[2023-12-04 18:03] LABS: Urine Bilirubin Dipstick 3 mg/dL (Negative)
--- NOTE | 2023-12-04 18:10 | EDS_ITS ---
<Statement entered by Emperatriz Craig MD - 12/04/23 20:33> I have personally performed a face to face assessment of the patient and have reviewed the CAMILLE Note. Patient seen and evaluated secondary to lower abdominal pain. She has a history of cirrhosis with recurrent ascites. She last had paracentesis about 2 weeks ago. She states that she was given Macrobid for UTI, but it made her abdominal pain worse so she stopped taking it. Patient lying in bed in no acute distress, but does appear uncomfortable. Head and neck examination unremarkable. Heart is regular rate and rhythm. Lung sounds are clear. Abdomen is distended. Mild diffuse tenderness. No guarding or rebound. Lab work reviewed. Patient has chronic changes to her liver and ammonia. She does have evidence of UTI. CT scan does reveal recurrent ascites. Patient given IV antibiotics for her UTI. We discussed case with Dr. Porras, her GI specialist as well as hospitalist for admission. HPI History of Present Illness Chief Complaint: Complaint Narrative Narrative: Patient presenting today due to nausea and generalized abdominal pain that she has had over the past 2 days. She reports that she has also had dysuria over the past several days and was placed on Macrobid about a week ago by her PCP but has not been compliant with taking this due to fears that will make her abdominal pain worse. She does have a history of hepatitis C, liver cirrhosis, and ascites. She last had a paracentesis a few weeks ago. She reports that she is not sure if she has been taking her lactulose correctly or not but is feeling confused. She has had decreased appetite due to her abdominal pain. She denies fevers, chills, and vomiting. PFSH PFSH Medical History Acute insomnia Alcohol abuse Anemia Anxiety and depression Ascites Chronic pain Cirrhosis of liver COPD (chronic obstructive pulmonary disease) Depression Gastric reflux GERD (gastroesophageal reflux disease) Hepatitis History of diverticulitis History of edema History of pain when walking History of renal disease Hyperbilirubinemia Kidney stones Loss of consciousness Low iron Marijuana use Migraine headache MRSA infection Obesity Open wound Polysubstance abuse Rash Restless legs Seizures Shortness of breath on exertion Sleep apnea Smoker Substance abuse Thrombocytopenia Tobacco use Home Medications Vitamin D3 1,250 mcg OTHER QWEEK SUPPLEMENT 05/20/22 [History Last Taken Unknown] gabapentin 100 mg capsule 100 mg PO Q12H 07/20/23 [History Last Taken Unknown] furosemide 20 mg tablet (Lasix) 20 mg PO DAILY #90 tabs 10/07/23 [Rx Last Taken 11/09/23] lactulose 20 gram/30 mL oral solution 20 g (30 mL) PO TID 30 days #2,880 mL 10/07/23 [Rx Last Taken Unknown] spironolactone 50 mg tablet 75 mg (1.5 x 50 mg) PO DAILY #45 tabs 11/05/23 [Rx Last Taken Unknown] albuterol sulfate 90 mcg/actuation aerosol inhaler (Ventolin HFA) 2 puff inhalation Q4H PRN PRN shortness of breath or wheezing 12/04/23 [History Last Taken Unknown] ascorbate calcium (vitamin C) 500 mg tablet 500 mg PO DAILY 12/04/23 [History Last Taken Unknown] ferrous sulfate 325 mg (65 mg iron) tablet (FeroSul) 325 mg PO DAILY 12/04/23 [History Last Taken Unknown] Allergy/AdvReac Type Severity Reaction Status Date / Time bupropion HCl Allergy SEIZURES Verified 12/04/23 16:48 [From Wellbutrin] codeine Allergy Rash Verified 12/04/23 16:48 Family History Mother Diabetes Father Cancer HX Throat CA. 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, marijuana, heroin and methamphetamine seatbelt use: always do you feel safe at home: Yes ROS ROS ED Constitutional Constitutional ED: Denies chills or fever(s) Cardiovascular Cardiovascular: Denies chest pain Respiratory/Chest Respiratory/Chest: Denies cough or dyspnea Gastrointestinal Gastrointestinal: Reports abdominal pain and nausea; Denies diarrhea or vomiting Genitourinary Genitourinary ED: Reports dysuria; Denies hematuria Musculoskeletal Musculoskeletal: Denies arthralgias or myalgias Integumentary Denies rash Neurologic Neurologic: Reports confusion; Denies weakness EXAM Physical Exam Const Vital Signs: 12/04/23 16:48 12/04/23 20:09 12/04/23 20:10 Temperature 96.4 F L 97.8 F 97.8 F Temperature Source Temporal Oral Pulse Rate 81 74 74 Respiratory Rate 18 20 H 20 H Blood Pressure 127/83 H 119/75 119/75 Blood Pressure Mean 97 89 89 Pulse Ox 97 100 100 Oxygen Delivery Method Room Air Room Air Positive well nourished, well developed and no apparent distress General Appearance ED: well developed HEENT Reports normocephalic and head/scalp atraumatic Mouth ED: Yes moist mucous membranes normal Eyes PERRL and EOMs intact bilaterally Neck full ROM and supple Chest Wall inspection of chest normal Resp normal respiratory effort and clear to auscultation bilaterally Cardio regular rate and regular rhythm GI soft to palpation, non-tender and no masses GI Narrative: Abdominal distention with ascites. Back/Spine normal ROM and normal to inspection Extremity normal to inspection and full ROM Neuro oriented x3, CN's II-XII intact bilaterally, moves all extremities, no focal motor deficits and no sensory deficits noted Sensorium / Orientation: awake and alert Psych mental status grossly normal and thought process normal Skin no rashes or lesions noted and no wounds MDM MDM MDM Narrative Medical decision making narrative: Patient presenting today due to abdominal pain, ascites, concerns for UTI. She is on Macrobid from her PCP but has not been taking this regularly due to concerns that would make her abdominal pain worse. She reports that she has had some intermittent confusion, she thinks she is taking her lactulose daily but is not sure. She does seem to have slight confusion on exam. Workup will be obtained. She does appear to have a UTI, ammonia level is elevated compared to previous visit. CT of the abdomen and pelvis obtained to rule out abdominal etiology, this does show ascites, portal hypertension, nonobstructing kidney stone. She will be given Rocephin for her UTI and IV analgesia. I do think she would benefit from a paracentesis and given her confusion, there are concerns for hepatic encephalopathy. I did discuss this with Dr. Porras, he recommends paracentesis. I will discuss the case with the hospitalist and she will be admitted in stable condition. Lab Data Attestation: I reviewed the patient's lab results. Lab results narrative: H&H of 8.9, 30.2, bilirubin 2.1, AST 58, alkaline phosphatase 143 Labs: Laboratory Results - last 24 hr 12/04/23 12/04/23 17:25 17:51 WBC 6.1 RBC 3.68 L Hgb 8.9 L Hct 30.2 L MCV 82.1 MCH 24.2 L MCHC 29.5 L RDW Std Deviation 79.4 H RDW Coeff of Katalina 27.1 H Plt Count 87 L MPV 9.5 Immature Gran % (Auto) 0.300 Neut % (Auto) 62.4 Lymph % (Auto) 23.3 Clay % (Auto) 10.7 H Eos % (Auto) 2.3 Baso % (Auto) 1.0 Absolute Neuts (auto) 3.8 Absolute Lymphs (auto) 1.43 Nucleated RBC % 0 Differential Comment SCANNED Hypochromasia 1+ Anisocytosis 2+ Microcytosis 1+ Macrocytosis 1+ Target Cells RARE PT 20.0 H INR 1.7 Sodium 142 Potassium 4.0 Chloride 110 H Carbon Dioxide 27.0 Anion Gap 5 BUN 10 Creatinine 0.82 Estim Creat Clear Calc 83.21 Est GFR (MDRD) Af Amer 95 Est GFR (MDRD) Non-Af 79 BUN/Creatinine Ratio 12.2 Glucose 117 H Calcium 8.4 L Phosphorus 2.3 L Magnesium 1.6 Total Bilirubin 2.10 H AST 58 H ALT 47 Alkaline Phosphatase 143 H Ammonia 45.0 H Total Protein 7.3 Albumin 2.2 L Globulin 5.1 H Albumin/Globulin Ratio 0.4 L Lipase 30 Urine Color Yellow Urine Clarity Sl. Cloudy Urine pH 6.5 Ur Specific [place] 1.015 Urine Protein 30 H Urine Glucose (UA) Normal Urine Ketones 15 H Urine Occult Blood 50 H Urine Nitrite Positive H Urine Bilirubin 3 H Urine Urobilinogen 8 H Ur Leukocyte Esterase 500 H Urine RBC 5-10 SEEN Urine WBC 25-50 SEEN Ur Squamous Epith Cells 0-5 SEEN Amorphous Sediment 1+ URATE Urine Bacteria RARE Urine Mucus 0 SEEN Radiography Diagnostic Testing: Clinical Impression(s) from Imaging Studies Abdomen/Pelvis CT 12/04/23 17:14 IMPRESSION: 1. 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 2. Diffuse abdominal ascites. 3. Splenomegaly. 4. Hepatic cirrhosis. 5. Portal hypertension. 6. Nonobstructive right renal stones measuring up to 10 mm. Electronically Signed: Tejas Bhakta MD at 19:07 EDT , Discharge Plan Triage Chief Complaint: Complaint Other Complaint: Abd Pain ED Midlevel Provider: Mica Díaz ED Provider: Emperatriz Craig Dx/Rx/DC Orders Clinical Impression: Abdominal ascites, UTI (urinary tract infection), Hepatitis C, chronic, Cirrhosis of liver, Encephalopathy, hepatic Primary Care Provider: Ang Acosta Disposition Disposition: Acute Care Hospital [facility]
[2023-12-04 18:11] LABS: White Blood Cells 25-50 SEEN /hpf (0-5)
[2023-12-04 18:12] LABS: Amorphous Sediment 1+ URATE; Bacteria RARE /hpf (None Seen); Red Blood Cells-Urine 5-10 SEEN /hpf (0-5); Squamous Epithelial Cells - UA 0-5 SEEN /hpf (5-10)
[2023-12-04] MEDS: Morphine 4 MG/ML Syringe IV (18:18)
[2023-12-04] MEDS: Ceftriaxone 1 GM/50 ML BAG IV (20:02)
[2023-12-04 20:09] VITALS: BP 119/75; PULSE 74; RESP 20; TEMP 36.6; O2SAT 100
[2023-12-04 20:10] VITALS: BP 119/75; PULSE 74; RESP 20; TEMP 36.6; O2SAT 100
--- NOTE | 2023-12-04 20:33 | PCM.HP.STD ---
HPI - General General Date of Admission: 12/04/23 Date of Service: 12/04/23 Chief Complaint: Abdominal pain, dysuria. HPI Narrative The patient is a 48 y/o F w/ PMHx: Obesity, Chronic anemia/iron deficiency anemia, Anxiety and Depression, Chronic hepatitis C/cirrhosis with chronic LFT/Bilirubin elevations w/ Hx polysubstance abuse (heroin, cannabis, methamphetamine), Tobacco use, Chronic thrombocytopenia who presents to the [facility] ED on 12/04/23 with history of generalized abdominal discomfort over the last 48 hours with dysuria over the last several days recently placed on Macrobid 1 week prior by her PCP however she has not been taking it with recent paracentesis within the last couple weeks and patient also reports she is unsure if she is been taking her lactulose correctly with decreased appetite with no recent fevers or chills nor any emesis but given ongoing abdominal discomfort and dysuria prompted ED evaluation. In the ED with nursing staff patient did report that she cannot stand living like this and when discussed further notes she means being in pain. She stated that she was unhappy with how she feels on a constant basis but when discussed suicidal ideations or plans she denies frankly and has no intent or thoughts. In the ED despite her complaints about generalized discomfort she is asking for food and drink. She does state that she still occasionally socially drinks. Workup in the ED included T96.4, heart rate 81, BP 127/83, respiratory rate 18, 97% on room air, CBC with WBC 6.1, human 8.9, MCV 82.1, platelet 87 without marked shift, coags with INR 1.7, PT 20, CMP with chloride 110, glucose 114, calcium 8.4, total bilirubin 2.10, AST/LT 58/47, alk phos 143, ammonia 45, lipase 30, CT abdomen and pelvis with diffuse gallbladder distention suggesting ectopic gallbladder, diffuse abdominal ascites, splenomegaly, hepatic cirrhosis, portal hypertension, nonobstructive right renal stones measuring up to 10 mm, urinalysis with cloudy appearing urine, protein 30, ketone 15, occult blood 50, positive nitrate, urine bilirubin 3, urine urobilinogen 8, urine leukocyte Estrace 500 with 25-50 urine WBCs however there is only rare bacteria noted, urine culture pending per ED. In the ED patient ministered Zofran 4 mg IV x 2, morphine 2 mg IV x 1 and morphine 4 mg IV x 1 as well as IV Rocephin 1 g. PFSH Medical History Alcohol abuse Anemia Anxiety and depression Chronic pain Cirrhosis of liver COPD (chronic obstructive pulmonary disease) Gastric reflux GERD (gastroesophageal reflux disease) Hepatitis History of diverticulitis History of renal disease Hyperbilirubinemia Kidney stones Low iron Marijuana use Migraine headache MRSA infection Obesity Open wound Polysubstance abuse Restless legs Seizures Sleep apnea Smoker Substance abuse Thrombocytopenia Tobacco use Home Medications Vitamin D3 1,250 mcg OTHER QWEEK SUPPLEMENT 05/20/22 [History Last Taken Unknown] gabapentin 100 mg capsule 100 mg PO Q12H 07/20/23 [History Last Taken Unknown] furosemide 20 mg tablet (Lasix) 20 mg PO DAILY #90 tabs 10/07/23 [Rx Last Taken 11/09/23] lactulose 20 gram/30 mL oral solution 20 g (30 mL) PO TID 30 days #2,880 mL 10/07/23 [Rx Last Taken Unknown] spironolactone 50 mg tablet 75 mg (1.5 x 50 mg) PO DAILY #45 tabs 11/05/23 [Rx Last Taken Unknown] albuterol sulfate 90 mcg/actuation aerosol inhaler (Ventolin HFA) 2 puff inhalation Q4H PRN PRN shortness of breath or wheezing 12/04/23 [History Last Taken Unknown] ascorbate calcium (vitamin C) 500 mg tablet 500 mg PO DAILY 12/04/23 [History Last Taken Unknown] ferrous sulfate 325 mg (65 mg iron) tablet (FeroSul) 325 mg PO DAILY 12/04/23 [History Last Taken Unknown] Allergy/AdvReac Type Severity Reaction Status Date / Time bupropion HCl Allergy SEIZURES Verified 12/04/23 16:48 [From Wellbutrin] codeine Allergy Rash Verified 12/04/23 16:48 Family History Mother Diabetes Father Cancer HX Throat CA. Surgical History H/O tubal ligation History of liver biopsy Social History (Updated 12/04/23 @ 21:[address] Sowmya Mirza MD) adopted: No household members: family housing: other number of children: 3 current occupational status: unemployed pets and animals: Yes history of recent travel: No sexually active: Yes Smoking Status: Current every day smoker tobacco type: cigarettes Smoking packs per day: 1 Smoking cigarettes per day: 20.0 second hand exposure: Yes alcohol intake: current alcohol intake frequency: a few times a month substance use type: former substance user Date of last use: heroin, marijuana, heroin and methamphetamine seatbelt use: always do you feel safe at home: Yes ROS ROS Narrative Admission Review of Systems: CONSTITUTIONAL: No weight loss, fever, chills,+ weakness or fatigue. HEENT: Eyes: No visual loss, blurred vision, double vision or yellow sclerae. Ears, Nose, Throat: No hearing loss, sneezing, congestion, runny nose or sore throat. SKIN: No rash or itching, lesions, wounds. CARDIOVASCULAR: No chest pain, chest pressure or chest discomfort, palpitations, edema, orthopnea, syncopal events. RESPIRATORY: No shortness of breath, cough or sputum, wheezing, hemoptysis. GASTROINTESTINAL: + anorexia, nausea, generalized abdominal discomfort, distention with recurrent ascites. No vomiting, diarrhea, melena, BRBPR. GENITOURINARY: + dysuria, frequency. No urgency or retention. NEUROLOGICAL: + Hx seizure with wellbutrin. No headache, dizziness, syncope, paralysis, ataxia, numbness or tingling in the extremities, focal weakness, change in bowel or bladder control, seizure. MUSCULOSKELETAL: + muscle, back pain, joint pain or stiffness. HEMATOLOGIC: + anemia. Easy bleeding and bruising. LYMPHATICS: No enlarged nodes. No history of splenectomy. PSYCHIATRIC: + history of depression and anxiety. ENDOCRINOLOGIC: No reports of sweating, cold or heat intolerance. No polyuria or polydipsia. ALLERGIES: No history of asthma, hives, eczema or rhinitis. Vital Signs Vital Signs Vital Signs: 12/04/23 16:48 12/04/23 20:09 12/04/23 20:10 Temperature 96.4 F L 97.8 F 97.8 F Temperature Source Temporal Oral Pulse Rate 81 74 74 Respiratory Rate 18 20 H 20 H Blood Pressure 127/83 H 119/75 119/75 Blood Pressure Mean 97 89 89 Pulse Ox 97 100 100 Oxygen Delivery Method Room Air Room Air Weight Weight: 188 lb 4.396 oz Body Mass Index (BMI) 34.6 Physical Exam Narrative Physical Examination: General: Awake, alert, oriented x 3 and cooperative, laying on her side in the ED, notes ongoing vague discomfort to the abdomen. Skin: Normal color, normal turgor, no icterus, no cyanosis except occasional staged ecchymoses. HEENT: AT/NC, EOMI, PERRLA, mildly dry MM, lack of dentition, no carotid bruits or JVD noted. Lungs: CTA bilaterally, moderate effort, mild decrease BL bases, no rales, ronchi or wheezing. Heart: Regular rate and rhythm; no gallop, rub audible. Abdomen: Soft, mild generalized discomfort but no rebound or guarding, mildly distended but not tense with reaccumulation of ascites noted, mildly hyperactive BS, given ascites reaccumulation difficult to appreciate HM. Extremities: No cyanosis, no clubbing, no marked significant peripheral edema but she has in the past. Neurological: Patient awake, alert, oriented as noted, cognitive function currently baseline intact; pupils equally reactive to light and accommodation, cranial nerves II-XII grossly normal, moving all 4 extremities, no focal deficits, strength mildly to moderately globally decreased secondary to acute complaints. Psychiatric: Affect appears uncomfortable, reports being fed up with her ongoing health issues, does admit to being depressed but denies suicidal ideation. Results Lab / Micro Data 12/04/23 17:25 12/04/23 17:25 Labs: Laboratory Results - last 24 hr 12/04/23 17:25: WBC 6.1, RBC 3.68 L, Hgb 8.9 L, Hct 30.2 L, MCV 82.1, MCH 24.2 L, MCHC 29.5 L, RDW Std Deviation 79.4 H, RDW Coeff of Katalina 27.1 H, Plt Count 87 L, MPV 9.5, Immature Gran % (Auto) 0.300, Neut % (Auto) 62.4, Lymph % (Auto) 23.3, Drew % (Auto) 10.7 H, Eos % (Auto) 2.3, Baso % (Auto) 1.0, Absolute Neuts (auto) 3.8, Absolute Lymphs (auto) 1.43, Nucleated RBC % 0, Differential Comment SCANNED, Hypochromasia 1+, Anisocytosis 2+, Microcytosis 1+, Macrocytosis 1+, Target Cells RARE, PT 20.0 H, INR 1.7, Sodium 142, Potassium 4.0, Chloride 110 H, Carbon Dioxide 27.0, Anion Gap 5, BUN 10, Creatinine 0.82, Estim Creat Clear Calc 83.21, Est GFR (MDRD) Af Amer 95, Est GFR (MDRD) Non-Af 79, BUN/Creatinine Ratio 12.2, Glucose 117 H, Calcium 8.4 L, Total Bilirubin 2.10 H, AST 58 H, ALT 47, Alkaline Phosphatase 143 H, Ammonia 45.0 H, Total Protein 7.3, Albumin 2.2 L, Globulin 5.1 H, Albumin/Globulin Ratio 0.4 L, Lipase 30 12/04/23 17:51: Urine Color Yellow, Urine Clarity Sl. Cloudy, Urine pH 6.5, Ur Specific [place] 1.015, Urine Protein 30 H, Urine Glucose (UA) Normal, Urine Ketones 15 H, Urine Occult Blood 50 H, Urine Nitrite Positive H, Urine Bilirubin 3 H, Urine Urobilinogen 8 H, Ur Leukocyte Esterase 500 H, Urine RBC 5-10 SEEN, Urine WBC 25-50 SEEN, Ur Squamous Epith Cells 0-5 SEEN, Amorphous Sediment 1+ URATE, Urine Bacteria RARE, Urine Mucus 0 SEEN Imaging Radiology Impression Abdomen/Pelvis CT 12/04/23 17:14 IMPRESSION: 1. 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 2. Diffuse abdominal ascites. 3. Splenomegaly. 4. Hepatic cirrhosis. 5. Portal hypertension. 6. Nonobstructive right renal stones measuring up to 10 mm. Electronically Signed: Tejas Bhakta MD at 19:07 EDT Reading Location ID and State: [facility] / ID , Service support , Assessment & Plan Assessment/Plan (1) Cirrhosis of liver: QUALIFIERS: Ascites presence: with ascites Hepatic cirrhosis type: unspecified hepatic cirrhosis Qualified Code(s): K74.60 - Unspecified cirrhosis of liver; R18.8 - Other ascites PLAN: Plan The patient is a 48 y/o F w/ PMHx: Obesity, Chronic anemia/iron deficiency anemia, Anxiety and Depression, Chronic hepatitis C/cirrhosis with chronic LFT/Bilirubin elevations w/ Hx polysubstance abuse (heroin, cannabis, methamphetamine), Tobacco use, Chronic thrombocytopenia who presents to the [facility] ED on 12/04/23 with history of generalized abdominal discomfort over the last 48 hours with dysuria over the last several days recently placed on Macrobid 1 week prior by her PCP however she has not been taking it with recent paracentesis within the last couple weeks and patient also reports she is unsure if she is been taking her lactulose correctly with decreased appetite with no recent fevers or chills nor any emesis but given ongoing abdominal discomfort and dysuria prompted ED evaluation. #1. Acute Worsened Ascites w/ Acute Decompensated Cirrhosis with abdominal discomfort likely associated, quick reaccumulation with mild hyperammonemia with alcohol abuse history, still with current alcohol intake: Will admit to MS, maintain on low Na/DM diet, water 1500 ml restriction, continue patient home oral Lasix, spironolactone, lactulose regimen, presentation ammonia level very mildly elevated 45, repeat ammonia level in AM, request repeat therapeutic paracentesis, continue treatment for possible UTI as noted below concurrently. Strongly encourage absolute sobriety which was discussed at length with patient given underlying cirrhotic disease. Case management consulted. #2. Acute Complicated Urinary Tract Infection: UA upon ED evaluation remarkable, pending UCx, monitor I/Os, continue IV Rocephin w/ transition as able pending sensitivities and speciation. #3. Chronic COPD: Will hold all home inhalers in the interim placed on ATC budesonide therapy, PRN albuterol, HOB, IS parameters. #4. Incidental nonobstructive right renal stones: CT abdomen pelvis with nonobstructive right renal stones measuring up to 10 mm. #5. History of polysubstance abuse: Patient with prior history of IV drug abuse with last usage approximately 7 years prior to current presentation with previous heroin, methamphetamine, cannabis usage, UDS requested. = #6. Anxiety and depression: Per current list on a regimen, clarifying as patient in the past had been on a significant regimen including duloxetine, desvenlafaxine, aripiprazole home regimen. Given patient's significant displeasure with her ongoing health issues would be imperative to potentially restart medications as well as outpatient counseling. Case management consulted. #7. Chronic normocytic anemia/iron deficiency anemia: Admission hemoglobin 8.9, MCV 82.1, baseline hemoglobin most recently primarily 9 range although occasionally 10, 11/10/2019 410.3, will continue to trend, continue iron supplementation. #8. Chronic thrombocytopenia: Secondary to underlying liver disease, admission platelets 87, baseline primarily 50-100 range, will continue to trend. #9. Tobacco Abuse: Encouraged cessation, inpatient consultation per RT, NR if desired. #10. Obesity: Weight loss and lifestyle changes encouraged. #11. GERD: Per current list on a regimen, clarifying, will have as needed Mylanta. #12. SUMAYA: Encourage CPAP nightly. #13. DVT prophylaxis: SCDs, defer chemoprophylaxis given planned paracentesis and thrombocytopenia. #14. CODE status: Patient does not have healthcare power of part maker nor living will. Full Code status. Charges/Coding Visit Charges Inpatient E&M: 09283 Init Hosp L3
[2023-12-04] MEDS: Morphine 2 MG/ML Syringe IV (20:35)
[2023-12-04 21:00] LABS: Magnesium 1.6 mg/dL (1.6-2.6); Phosphorus 2.3 mg/dL (2.5-4.9)
[2023-12-04 22:00] VITALS: BP 110/64; PULSE 64; RESP 18; TEMP 36.2; O2SAT 96
[2023-12-04 22:03] VITALS: BP 110/64; PULSE 64; RESP 18; TEMP 36.2; O2SAT 96
[2023-12-04 22:04] VITALS: BMI 33.5
[2023-12-04] MEDS: Gabapentin 100 MG Capsule PO (22:52)
[2023-12-04] MEDS: oxyCODONE 5 MG Tablet PO (22:52)
[2023-12-04] MEDS: Acetaminophen 325 MG Tablet 650 MG PO (22:52)
[2023-12-04] MEDS: Lactulose 20 GM/30 ML UDC PO (22:53)
[2023-12-04 23:26] LABS: Amphetamine Urine VISTA NEGATIVE (<1000 ng/mL); Barbiturate Urine VISTA NEGATIVE (< 200 ng/mL); Benzodiazepine Urine VISTA NEGATIVE (< 200 ng/mL); Cocaine Urine VISTA NEGATIVE (< 300 ng/mL); Ecstacy Urine VISTA NEGATIVE (< 500 ng/mL); Methadone Urine VISTA NEGATIVE (< 300 ng/mL); PCP Urine VISTA NEGATIVE (< 25 ng/mL); THC Urine VISTA POSITIVE (< 50 ng/mL); Vista UDS pH Range 6
[2023-12-04] MEDS: MELATONIN 3 MG TABLET PO (23:49)
[2023-12-05] VITALS (11 sets, daily range): BP systolic 111–126; BP diastolic 62–76; PULSE 72–97; RESP 16–18; TEMP 35.7–36.7; O2SAT 96–100; BMI 33.5
--- NOTE | 2023-12-05 | FLU_PTH ---
PATIENT: CAROLINA HIGHTOWER LOC: [facility] U#:[id number] AGE/SX: 48/F ROOM: [facility] RE12/04/[address]: Dr. Son Adams MD : 1975 BED: 1 DIS: 12/07/2023 SPEC #: [id number] RECD: 12/05/23 09:08 STATUS: TRAMAINE REDawna #: [id number] KYLAH: 12/05/23 00:[address]: Son Adams DEPT: CYTOLOGY RECD BY: Mayra Sanders ENTERED: 12/05/23 10:42 SP TYPE: Fluid OTHR DR: MD Dr. Ang Bustillos MD Tissues: PARACENTESIS FLUID Procedures: Special Stain Group II Surgery Specimen Level IV Cytospin Fluid HEADER OPERATION: Ultrasound Guided left Paracentesis PRE-OP DIAGNOSIS: Ascites TISSUE SUBMITTED: Paracentesis fluid for cytology DIAGNOSIS CYTOLOGY Paracentesis fluid for cytology (cytospin and cell block): Negative for malignant cells. See comment. SJ:rg 12/06/2023 COMMENT Clinical correlation and appropriate follow up are necessary. CYTOLOGY STUDY Slides are reviewed. CYTOLOGY GROSS Received is 90 ml of yellow cloudy fluid labeled with the patient's name and and designated per the requisition as paracentesis. Submitted for cytology preparation including cell block. / mr 12/05/23 TC:5 CPT: 24027, 96712
[2023-12-05] MEDS: oxyCODONE 5 MG Tablet PO ×4 (02:55→18:42)
[2023-12-05 04:25] LABS: Absolute Lymphocyte Count 2.11 X10^3/uL (0.83-4.51); Absolute Neutrophil Count 3.5 X10^3/uL (2.0-7.7); Basophil# 0.05 X10^3/uL; Basophil% 0.7 % (0-1); Eosinophil# 0.21 X10^3/uL; Eosinophils% 3.1 % (0-5); Hematocrit 27.6 % (37-47); Hemoglobin 8.3 g/dL (12.0-15.0); Lymphocyte # 2.11 X10^3/ul (0.83-4.51); Lymphocyte % 30.9 % (19-41); Mean Corp Hgb Conc 30.1 g/dL (32-36); Mean Corpuscular Hgb 24.6 pg (27.0-32.0); Mean Corpuscular Volume 81.7 fL (81-99); Mean Platelet Vol. 9.7 fl (6.2-12.0); Monocyte# 0.92 X10^3/uL; Monocyte% 13.5 % (0-10); NRBC Flagged by Analyzer 0 % (0-5); Neutrophil # 3.52 X10^3/uL (2.7-7.7); Neutrophil % 51.5 % (47-70); POSITIVE COUNT YES; POSITIVE MORPHOLOGY YES; Platelet Count 81 K/mm3 (150-450); RBC Distribution Width CV 26.8 % (11.6-14.6); RBC Distribution Width SD 78.3 fl (35.1-43.9); Red Blood Count 3.38 M/mm3 (4.2-5.4); White Blood Count 6.8 K/mm3 (4.4-11.0)
[2023-12-05 04:27] LABS: Differential Indicated SCAN CRITERIA MET
[2023-12-05 04:49] LABS: ALB/GLOB Ratio 0.4 RATIO (0.9-2.4); AST(SGOT) 57 U/L (15-37); Alanine Aminotransfer ALT/SGPT 46 U/L (13-56); Albumin, Serum 2.1 g/dL (3.2-5.0); Alkaline Phosphatase 130 U/L (45-117); Anion Gap 4 (5-15); BUN 11 mg/dL (7-18); BUN/Creat Ratio 14.1 RATIO (10-20); Calcium,Total 8.3 mg/dL (8.5-10.1); Chloride 110 mmol/L (98-107); Creatinine, Serum 0.78 mg/dL (0.55-1.02); EST Glomerular Filtration Rate 83 mL/min (>60); Est Glom Filt Rate - Afr Amer 101 mL/min (>60); Estimated Creatinine Clearance 86.28 ml/min; Globulin 4.9 g/dL (2.2-4.2); Glucose 89 mg/dL (74-106); Potassium 3.9 mmol/L (3.5-5.1); Sodium Level 139 mmol/L (136-145)
[2023-12-05] MEDS: Acetaminophen 325 MG Tablet 650 MG PO ×3 (05:24→18:42)
[2023-12-05] MEDS: Lactulose 20 GM/30 ML UDC PO ×3 (05:26→21:35)
[2023-12-05 06:14] LABS: Anisocytosis 3+
[2023-12-05] MEDS: Budesonide Respules 0.5 MG/2 ML AMPUL.NEB. INHALATION ×2 (07:40→20:43)
--- NOTE | 2023-12-05 08:15 | PN.HOSP_ITS ---
Reason for Visit Reason for Visit: Diagnoses Unspecified cirrhosis of liver (12/04/23) Other ascites (12/04/23) Objective Data Objective Data Vital Signs: Vital Signs Temp Pulse Resp BP Pulse Ox O2 Del Method 97.6 F L 97 16 116/67 96 Room Air 12/05/23 07:39 12/05/23 07:39 12/05/23 07:39 12/05/23 07:39 12/05/23 07:39 12/05/23 07:39 Oxygen Delivery Method Room Air Weight: 183 lb 6.793 oz Body Mass Index (BMI) 33.5 Intake & Output: Intake and Output for Last 24 Hours 12/03/23 12/04/23 12/05/23 22:59 23:59 23:59 Intake Total Balance Lab / Micro Data 12/05/23 04:10 12/05/23 04:10 Labs: Laboratory Results - last 24 hr 12/04/23 17:25: WBC 6.1, RBC 3.68 L, Hgb 8.9 L, Hct 30.2 L, MCV 82.1, MCH 24.2 L , MCHC 29.5 L, RDW Std Deviation 79.4 H, RDW Coeff of Katalina 27.1 H, Plt Count 87 L , MPV 9.5, Immature Gran % (Auto) 0.300, Neut % (Auto) 62.4, Lymph % (Auto) 23.3, [place] % (Auto) 10.7 H, Eos % (Auto) 2.3, Baso % (Auto) 1.0, Absolute Neuts (auto) 3.8, Absolute Lymphs (auto) 1.43, Nucleated RBC % 0, Differential Comment SCANNED, Hypochromasia 1+, Anisocytosis 2+, Microcytosis 1+, Macrocytosis 1+, Target Cells RARE, PT 20.0 H, INR 1.7, Sodium 142, Potassium 4.0, Chloride 110 H , Carbon Dioxide 27.0, Anion Gap 5, BUN 10, Creatinine 0.82, Estim Creat Clear Calc 83.21, Est GFR (MDRD) Af Amer 95, Est GFR (MDRD) Non-Af 79, BUN/Creatinine Ratio 12.2, Glucose 117 H, Calcium 8.4 L, Phosphorus 2.3 L, Magnesium 1.6, Total Bilirubin 2.10 H, AST 58 H, ALT 47, Alkaline Phosphatase 143 H, Ammonia 45.0 H, Total Protein 7.3, Albumin 2.2 L, Globulin 5.1 H, Albumin/Globulin Ratio 0.4 L, Lipase 30 12/04/23 17:51: Urine Color Yellow, Urine Clarity Sl. Cloudy, Urine pH 6.5, Ur Specific [place] 1.015, Urine Protein 30 H, Urine Glucose (UA) Normal, Urine Ketones 15 H, Urine Occult Blood 50 H, Urine Nitrite Positive H, Urine Bilirubin 3 H, Urine Urobilinogen 8 H, Ur Leukocyte Esterase 500 H, Urine RBC 5-10 SEEN, Urine WBC 25-50 SEEN, Ur Squamous Epith Cells 0-5 SEEN, Amorphous Sediment 1+ URATE, Urine Bacteria RARE, Urine Mucus 0 SEEN, Urine Opiates Screen NEGATIVE, Urine Methadone Screen NEGATIVE, Ur Barbiturates Screen NEGATIVE, Ur Phencyclidine Scrn NEGATIVE, Ur Amphetamines Screen NEGATIVE, MDMA (Ecstasy) Screen NEGATIVE, U Benzodiazepines Scrn NEGATIVE, Urine Cocaine Screen NEGATIVE, U Cannabinoids Screen POSITIVE H, Ur Drug Screen Comment 12/05/23 04:10: WBC 6.8, RBC 3.38 L, Hgb 8.3 L, Hct 27.6 L, MCV 81.7, MCH 24.6 L , MCHC 30.1 L, RDW Std Deviation 78.3 H, RDW Coeff of Katalina 26.8 H, Plt Count 81 L , MPV 9.7, Immature Gran % (Auto) 0.300, Neut % (Auto) 51.5, Lymph % (Auto) 30.9, [place] % (Auto) 13.5 H, Eos % (Auto) 3.1, Baso % (Auto) 0.7, Absolute Neuts (auto) 3.5, Absolute Lymphs (auto) 2.11, Nucleated RBC % 0, Anisocytosis 3+, Sodium 139, Potassium 3.9, Chloride 110 H, Carbon Dioxide 25.0, Anion Gap 4 L, BUN 11, Creatinine 0.78, Estim Creat Clear Calc 86.28, Est GFR (MDRD) Af Amer 101, Est GFR (MDRD) Non-Af 83, BUN/Creatinine Ratio 14.1, Glucose 89, Calcium 8.3 L, Total Bilirubin 1.80 H, AST 57 H, ALT 46, Alkaline Phosphatase 130 H, Ammonia 37.0 H, Total Protein 7.0, Albumin 2.1 L, Globulin 4.9 H, Albumin/Globulin Ratio 0.4 L Radiography Diagnostic Testing: Radiology Impression Abdomen/Pelvis CT 12/04/23 17:14 IMPRESSION: 1. 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 2. Diffuse abdominal ascites. 3. Splenomegaly. 4. Hepatic cirrhosis. 5. Portal hypertension. 6. Nonobstructive right renal stones measuring up to 10 mm. Electronically Signed: Tejas Bhakta MD at 19:07 EDT , Physical Exam Narrative Seen and examined. Patient complain of abdominal pain and febrile could not breathe because of abdominal distention from ascites. She had diagnostic and therapeutic ultrasound-guided paracentesis today Physical exam General: Alert, Oriented x3, Cooperative, obesity grade 2 BMI 33.5 kg/m? HEENT: Atraumatic, PERRLA, EOMI, Normocephalic Oral: No Gingival or Mucosal Lesions/ Ulcerations Neck: Supple, No JVD, Negative Carotid Bruits Chest wall/Lungs: Air entry diminished in bilateral lung bases. No crepitation/rhonchi Cardiovascular: Regular rate, Regular Rhythm, Normal S1, Normal S2, No M/G/R Abdomen: Bowel Sounds Present, Soft, still has mild ascites. No significant tenderness/rebound tenderness. : No dysuria. No renal angle tenderness. No suprapubic tenderness. Extremities: No edema, Capillary Refill Less than 3 Seconds Skin: No rashes, No breakdown Musculoskeletal: Ingrown toenail. No Tenderness to Palpation of Joints or Extremities Neurological: Cranial nerves II-XII grossly intact, DTR 2+/4. No acute focal neurological deficit. Psych/Mental Status: Flat affect. Assessment & Plan Assessment/Plan (1) Cirrhosis of liver: QUALIFIERS: Ascites presence: with ascites Hepatic cirrhosis type: unspecified hepatic cirrhosis Qualified Code(s): K74.60 - Unspecified cirrhosis of liver; R18.8 - Other ascites PLAN: Plan The patient is a 48 y/o F came to ED with generalized abdominal pain and nausea for the last 2 days. Patient also has dysuria for past several days and was put on Macrobid a week ago by PCP but patient not taking it because of fear that might make her abdominal pain worse. Patient is not adherent with regimen of lactulose she is confused. Denies fever or chills. #1. Worsening ascites with history of chronic decompensated hep C cirrhosis requiring multiple recurrent paracentesis, hepatic encephalopathy, thrombocytopenia and esophageal varices suggestive of portal hypertension: Patient is abdominal discomfort. Patient admitted to PCU. Patient went for paracentesis. Ultrasound called to send the fluid for analysis to calculate SAAG. Chronic thrombocytopenia due to decompensated cirrhosis. She ranges anywhere between 50,000-80,000. Nonadherent to lactulose. Continue IV ceftriaxone. Patient had 3200 mL clear fluid drained. 25 g IV albumin ordered. #2. Acute Complicated Urinary Tract Infection: UA upon ED evaluation remarkable for nitrite and LE +500. WBC 25-50 cells, Urine culture pending. Empirically patient started on IV ceftriaxone. #3. Chronic COPD: Will hold all home inhalers in the interim placed on ATC budesonide therapy, PRN albuterol, HOB, IS parameters. #4. Incidental nonobstructive right renal stones: CT abdomen pelvis with nonobstructive right renal stones measuring up to 10 mm. #5. History of polysubstance abuse: Patient with prior history of IV drug abuse with last usage approximately 7 years prior to current presentation with previous heroin, methamphetamine, cannabis usage, UDS requested. = #6. Anxiety and depression: Per current list on a regimen, clarifying as quique ent in the past had been on a significant regimen including duloxetine, desvenlafaxine, aripiprazole home regimen. Given patient's significant displeasure with her ongoing health issues would be imperative to potentially restart medications as well as outpatient counseling. Case management consult ed. #7. Chronic normocytic anemia/iron deficiency anemia: Admission hemoglobin 8.9, MCV 82.1, Baseline hemoglobin runs between 9 to 10 g. #8. Other multiple comorbidities include obesity grade 3 mainly fluid weight, GERD, obstructive sleep apnea on CPAP and chronic tobacco use/smoking. CODE status: Patient does not have healthcare power of corporate associate attorney nor living will. Full Code status. Charges/Coding Visit Charges Inpatient E&M: 87917 Subs Hosp L2
[2023-12-05] MEDS: Ferrous Sulfate 325 MG Tablet PO (09:02)
[2023-12-05] MEDS: Lidocaine 2% (20 ml mdv) 20 ML Vial INFILT (09:02)
[2023-12-05] MEDS: Ascorbic Acid 500 MG Tablet PO (09:03)
[2023-12-05] MEDS: Spironolactone 25 MG Tablet 75 MG PO (09:03)
[2023-12-05] MEDS: Furosemide 20 MG Tablet PO (09:03)
--- NOTE | 2023-12-05 09:09 | PRO.PCM_ITS ---
Procedure Report Date of Procedure: 12/05/23 Assessment & Plan Assessment/Plan (1) Ascites: QUALIFIERS: Ascites type: due to alcoholic hepatitis Qualified Code(s): K70.11 - Alcoholic hepatitis with ascites PLAN: PROCEDURE: Ultrasound guided paracentesis ORDERING PROVIDER: Dr. Mirza INDICATION: Female, 48 years old. Ascites. PROVIDER: JOSHUA Mc TECHNIQUE: The risks, benefits, and alternatives to the procedure were explained to the patient. The specific risks of bleeding, infection, and damage to bowel were detailed and accepted. Witnessed informed consent was obtained. The abdomen was ultrasonographically surveyed. An appropriate pocket of fluid was identified in the left lower quadrant. The skin was prepped with chlorhexidine and sterile field established. 2% lidocaine was used for local anesthetic. Using ultrasound guidance, the peritoneal cavity was accessed with a 5-Romansh paracentesis needle/catheter system. The trocar was removed. A total of 3200 ml of clear yellow colored fluid was removed from the peritoneal cavity. 100 mL of this fluid was collected and sent to the laboratory. The catheter was removed and a sterile dressing was applied. The procedure was well tolerated. IMPRESSION: Successful ultrasound-guided paracentesis with left lower quadrant access site. Procedures Radiology Radiology US Procedures: 90434 Paracentesis
[2023-12-05 09:12] LABS: Cytology, Body Fluid / CSF SEE PATHOLOGY REPORT
[2023-12-05] MEDS: Gabapentin 100 MG Capsule PO ×2 (09:17→21:34)
[2023-12-05] MEDS: Magnesium Sulfate 2 GM in Dextrose 5%-Water (100mL Bag) 100 ML IV (09:21)
[2023-12-05 09:42] LABS: Glucose, Body Fluid 95 mg/dL (40-70)
[2023-12-05 10:14] LABS: Body Fluid Mononuclear WBC % 95.6 %; Body Fluid Polynuclear WBC # 0.006 10^3/uL; Body Fluid Polynuclear WBC % 4.4 %; Body Fluid Total Cells Counted 0.189 10^3/ul; White Blood Count/Body Fluid 0.136 10^3/uL
--- NOTE | 2023-12-05 10:35 | CASEMGMT ---
NASH SOUZA Face to Face with patient for initial transition planning/care coordination assessment. NASH SOUZA introduced self and role at [facility]. Patient lying in bed, alert and oriented. Patient willing to participate in assessment and is able to answer all questions appropriately. Care providers, pharmacy, and demographics verified. PCP: Dave Specialists: Renae Block psychiatrist Preferred Pharmacy: [facility] Insurance: [employer] Prescription Benefit: yes Living Will/HPOA: none LNOK: daughter, significant other Living Arrangements: Patient lives with significant other in a 2 story home. Patient states she is independent and able to ambulate stairs. Transportation: insurance DME/HHC: Patient denies DME in the home. Patient smokes 1.5 PPD of cigarettes and used Fentanyl a couple days ago. Patient denied resources and states she will quit on her own. Patient inquired about pain management, NASH SOUZA instructed patient to follow-up with PCP for referral, patient voiced understanding. Patient wishes to discharge home, denies need for home health at this time. Patient states he has no further needs or concerns at this time. CM to follow for discharge planning needs that may arise. Disposition Plan: Patient to discharge home with family support and follow-up plans in place. Brandi LARKIN, RN, CM
[2023-12-05 10:41] LABS: Phosphorus 2.8 mg/dL (2.5-4.9)
[2023-12-05 12:22] LABS: Lymphocytes 27 %; Macrophages 69 %; Mesothelial Cells 4 %
[2023-12-05 12:23] LABS: Auto B Fluid Analyzer BKGD Ct COUNTS W/IN LIMITS (W/IN LIMITS)
[2023-12-05 12:24] LABS: Appearance/Body Fluid CLEAR; Body Fluid QC Type(s) BF1Q; Color/Body Fluid LT YEL; Red Cell Count/Body Fluid 101 /mm3
--- NOTE | 2023-12-05 12:28 | CASEMGMT ---
Addendum entered by Yvonne Hartman 12/05/23 16:06: SHELL called [facility] and left a voice mail requesting a return call. SHELL did call [facility] and scheduled a Psychiatrist appt for patient with [facility] Renae Vani for April 11. SW will notify patient. Yvonne CERRATO Original Note: SW met with patient regarding SDOH. Patient stated she utilizes her insurance for transportation to appts. SW asked patient if she has transportation issues and patient said she doesn't drive anymore. SW provided patient with a list of transportation resources for [facility]. Patient also asked if [facility] has a Psychiatrist as she wants to switch from her Psychiatrist at [facility]. SHELL told patient there is a Psychiatrist with [facility], but he is booking out pretty far. Patient asked if SHELL could schedule an appt for her. SHELL will work on this. Yvonne CERRATO
[2023-12-05] MEDS: Albumin Human 25% (100 mL) 25 GM/100 ML BAG IV (14:47)
--- NOTE | 2023-12-05 16:33 | CON.PCM.GI_ITS ---
HPI Consult Data Date of Consult: 12/05/23 HPI Narrative Reason for Consultation: Ascites HPI Narrative: CAROLINA HIGHTOWER, is a 48 F who presented She presented to [facility] ED with increased fatigue, forgetfulness, abdominal distention and confusion. History of HCV with remote history of IV drug use with possible cirrhosis with thrombocytopenia th rough [facility]. She was admitted for acute HE secondary to decompensated cirrhosis with hyperammonemia treated with lactulose. She has a history of frequent need for paracentesis secondary to refractory ascites. CT abd/pel 5.17.19 abd pain with normal liver without lesions; splenomegaly 15.1cm; renal calculi. Imaging prior to this with normal liver and without splenomegaly. Fib4 1.82 CT abd/pel 9.17.21 pain HCV Hx with moderately cirrhotic liver with volume redistribution to right lobe without ascites; moderate splenomegaly; inflammation of subhepatic space r/t right colon. Fib4 8.76 CT abd/pel 05.19. with cirrhotic liver with prominent caudate lobe and nodular surface without mass; splenomegaly; pancreatic calcification in uncinate process; renal calculi. Resolution of previously noted inflammation. Fib4 11.76 MELD 05.19.22 13?? She denies any no pruritis, jaundice She is having issues with lightheadedness with quick movements causing loss of balance, memory loss and brain fog is a difficulty, sleep pattern is disturbed for many years. She does have a lot of psychiatric diagnoses. Feels like she has been having an increased appetite. Constipation is an issue with BM 1-2 times a week. Lactulose caused nausea and generally feeling unwell. Furosemide stopped because it was causing nocturia. [facility] Medical History Alcohol abuse Anemia Anxiety and depression Chronic pain Cirrhosis of liver COPD (chronic obstructive pulmonary disease) Gastric reflux GERD (gastroesophageal reflux disease) Hepatitis History of diverticulitis History of renal disease Hyperbilirubinemia Kidney stones Low iron Marijuana use Migraine headache MRSA infection Obesity Open wound Polysubstance abuse Restless legs Seizures Sleep apnea Smoker Substance abuse Thrombocytopenia Tobacco use Home Medications Vitamin D3 1,250 mcg OTHER QWEEK SUPPLEMENT 05/20/22 [History Last Taken Unknown] gabapentin 100 mg capsule 100 mg PO Q12H 07/20/23 [History Last Taken Unknown] furosemide 20 mg tablet (Lasix) 20 mg PO DAILY #90 tabs 10/07/23 [Rx Last Taken 11/09/23] lactulose 20 gram/30 mL oral solution 20 g (30 mL) PO TID 30 days #2,880 mL [Rx Last Taken Unknown] spironolactone 50 mg tablet 75 mg (1.5 x 50 mg) PO DAILY #45 tabs 11/05/23 [Rx Last Taken Unknown] albuterol sulfate 90 mcg/actuation aerosol inhaler (Ventolin HFA) 2 puff inhalation Q4H PRN PRN shortness of breath or wheezing 12/04/23 [History Last Taken Unknown] ascorbate calcium (vitamin C) 500 mg tablet 500 mg PO DAILY 12/04/23 [History Last Taken Unknown] ferrous sulfate 325 mg (65 mg iron) tablet (FeroSul) 325 mg PO DAILY 12/04/23 [History Last Taken Unknown] Allergy/AdvReac Type Severity Reaction Status Date / Time bupropion HCl Allergy SEIZURES Verified 12/04/23 16:48 [From Wellbutrin] codeine Allergy Rash Verified 12/04/23 16:48 Family History Mother Diabetes Father Cancer HX Throat CA. Surgical History H/O tubal ligation History of liver biopsy Social History (Updated 12/04/23 @ 21:[address] Sowmya Mirza MD) adopted: No household members: family housing: other number of children: 3 current occupational status: unemployed pets and animals: Yes history of recent travel: No sexually active: Yes Smoking Status: Current every day smoker tobacco type: cigarettes Smoking packs per day: 1 Smoking cigarettes per day: 20.0 second hand exposure: Yes alcohol intake: current alcohol intake frequency: a few times a month substance use type: former substance user Date of last use: heroin, marijuana, heroin and methamphetamine seatbelt use: always do you feel safe at home: Yes ROS ROS Narrative Admission Review of Systems: CONSTITUTIONAL: No weight loss, fever, chills,+ weakness or fatigue. HEENT: Eyes: No visual loss, blurred vision, double vision or yellow sclerae. Ears, Nose, Throat: No hearing loss, sneezing, congestion, runny nose or sore throat. SKIN: No rash or itching, lesions, wounds. CARDIOVASCULAR: No chest pain, chest pressure or chest discomfort, palpitations, edema, orthopnea, syncopal events. RESPIRATORY: No shortness of breath, cough or sputum, wheezing, hemoptysis. GASTROINTESTINAL: + anorexia, nausea, generalized abdominal discomfort, distention with recurrent ascites. No vomiting, diarrhea, melena, BRBPR. GENITOURINARY: + dysuria, frequency. No urgency or retention. NEUROLOGICAL: + Hx seizure with wellbutrin. No headache, dizziness, syncope, paralysis, ataxia, numbness or tingling in the extremities, focal weakness, change in bowel or bladder control, seizure. MUSCULOSKELETAL: + muscle, back pain, joint pain or stiffness. HEMATOLOGIC: + anemia. Easy bleeding and bruising. LYMPHATICS: No enlarged nodes. No history of splenectomy. PSYCHIATRIC: + history of depression and anxiety. ENDOCRINOLOGIC: No reports of sweating, cold or heat intolerance. No polyuria or polydipsia. ALLERGIES: No history of asthma, hives, eczema or rhinitis. Physical Exam Narrative Physical Examination: General: Awake, alert, oriented x 3 and cooperative, laying on her side in the ED, notes ongoing vague discomfort to the abdomen. Skin: Normal color, normal turgor, no icterus, no cyanosis except occasional staged ecchymoses. HEENT: AT/NC, EOMI, PERRLA, mildly dry MM, lack of dentition, no carotid bruits or JVD noted. Lungs: CTA bilaterally, moderate effort, mild decrease BL bases, no rales, ronchi or wheezing. Heart: Regular rate and rhythm; no gallop, rub audible. Abdomen: Soft, mild generalized discomfort but no rebound or guarding, mildly di stended but not tense with reaccumulation of ascites noted, mildly hyperactive BS, given ascites reaccumulation difficult to appreciate HM. Extremities: No cyanosis, no clubbing, no marked significant peripheral edema but she has in the past. Neurological: Patient awake, alert, oriented as noted, cognitive function currently baseline intact; pupils equally reactive to light and accommodation, cranial nerves II-XII grossly normal, moving all 4 extremities, no focal deficits, strength mildly to moderately globally decreased secondary to acute complaints. Psychiatric: Affect appears uncomfortable, reports being fed up with her ongoing health issues, does admit to being depressed but denies suicidal ideation. Lab / Micro Data 12/05/23 04:10 12/05/23 04:10 Labs: Laboratory Results - last 24 hr 12/04/23 17:25: WBC 6.1, RBC 3.68 L, Hgb 8.9 L, Hct 30.2 L, MCV 82.1, MCH 24.2 L , MCHC 29.5 L, RDW Std Deviation 79.4 H, RDW Coeff of Katalina 27.1 H, Plt Count 87 L , MPV 9.5, Immature Gran % (Auto) 0.300, Neut % (Auto) 62.4, Lymph % (Auto) 23.3, [place] % (Auto) 10.7 H, Eos % (Auto) 2.3, Baso % (Auto) 1.0, Absolute Neuts (auto) 3.8, Absolute Lymphs (auto) 1.43, Nucleated RBC % 0, Differential Comment SCANNED, Hypochromasia 1+, Anisocytosis 2+, Microcytosis 1+, Macrocytosis 1+, Target Cells RARE, PT 20.0 H, INR 1.7, Sodium 142, Potassium 4.0, Chloride 110 H , Carbon Dioxide 27.0, Anion Gap 5, BUN 10, Creatinine 0.82, Estim Creat Clear Calc 83.21, Est GFR (MDRD) Af Amer 95, Est GFR (MDRD) Non-Af 79, BUN/Creatinine Ratio 12.2, Glucose 117 H, Calcium 8.4 L, Phosphorus 2.3 L, Magnesium 1.6, Total Bilirubin 2.10 H, AST 58 H, ALT 47, Alkaline Phosphatase 143 H, Ammonia 45.0 H, Total Protein 7.3, Albumin 2.2 L, Globulin 5.1 H, Albumin/Globulin Ratio 0.4 L, Lipase 30 12/04/23 17:51: Urine Color Yellow, Urine Clarity Sl. Cloudy, Urine pH 6.5, Ur Specific [place] 1.015, Urine Protein 30 H, Urine Glucose (UA) Normal, Urine Ketones 15 H, Urine Occult Blood 50 H, Urine Nitrite Positive H, Urine Bilirubin 3 H, Urine Urobilinogen 8 H, Ur Leukocyte Esterase 500 H, Urine RBC 5-10 SEEN, Urine WBC 25-50 SEEN, Ur Squamous Epith Cells 0-5 SEEN, Amorphous Sediment 1+ URATE, Urine Bacteria RARE, Urine Mucus 0 SEEN, Urine Opiates Screen NEGATIVE, Urine Methadone Screen NEGATIVE, Ur Barbiturates Screen NEGATIVE, Ur Phencyclidine Scrn NEGATIVE, Ur Amphetamines Screen NEGATIVE, MDMA (Ecstasy) S creen NEGATIVE, U Benzodiazepines Scrn NEGATIVE, Urine Cocaine Screen NEGATIVE, U Cannabinoids Screen POSITIVE H, Ur Drug Screen Comment 12/05/23 04:10: WBC 6.8, RBC 3.38 L, Hgb 8.3 L, Hct 27.6 L, MCV 81.7, MCH 24.6 L , MCHC 30.1 L, RDW Std Deviation 78.3 H, RDW Coeff of Katalina 26.8 H, Plt Count 81 L , MPV 9.7, Immature Gran % (Auto) 0.300, Neut % (Auto) 51.5, Lymph % (Auto) 30.9, [place] % (Auto) 13.5 H, Eos % (Auto) 3.1, Baso % (Auto) 0.7, Absolute Neuts (auto) 3.5, Absolute Lymphs (auto) 2.11, Nucleated RBC % 0, Anisocytosis 3+, Sodium 139, Potassium 3.9, Chloride 110 H, Carbon Dioxide 25.0, Anion Gap 4 L, BUN 11, Creatinine 0.78, Estim Creat Clear Calc 86.28, Est GFR (MDRD) Af Amer 101, Est GFR (MDRD) Non-Af 83, BUN/Creatinine Ratio 14.1, Glucose 89, Calcium 8.3 L, Phosphorus 2.8, Total Bilirubin 1.80 H, AST 57 H, ALT 46, Alkaline Phosphatase 130 H, Ammonia 37.0 H, Total Protein 7.0, Albumin 2.1 L, Globulin 4.9 H, Albumin/Globulin Ratio 0.4 L 12/05/23 : Fluid Source PERICARDIAL FLUID, Fluid Color LT YEL, Fluid Appearance CLEAR, Fluid WBC 0.136, Fluid RBC 101, Fluid Tot Cell Count 0.189 H, Fld Polynuclear WBCs # 0.006, Fld Polynuclear WBCs % 4.4, Fluid Mononuclear WBCs 0.130, Fld Mononuclear WBCs % 95.6, Fluid Lymphocytes 27, Fluid Macrophages 69, Fld Mesothelial Cells 4, Fl Pathologist Comment May follow, Fluid Glucose 95 H, Fluid Comment 2 SEE COMMENT Micro: Microbiology 12/05/23 Unknown Fluid - Ascites Gram Stain - Final Imaging Radiology Impression Abdomen/Pelvis CT 12/04/23 17:14 IMPRESSION: 1. 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 2. Diffuse abdominal ascites. 3. Splenomegaly. 4. Hepatic cirrhosis. 5. Portal hypertension. 6. Nonobstructive right renal stones measuring up to 10 mm. Electronically Signed: Tejas Bhakta MD at 19:07 EDT , Assessment & Plan Assessment/Plan (1) Cirrhosis of liver: QUALIFIERS: Hepatic cirrhosis type: unspecified hepatic cirrhosis Ascites presence: with ascites Qualified Code(s): K74.60 - Unspecified cirrhosis of liver; R18.8 - Other ascites (2) Ascites: QUALIFIERS: Ascites type: due to alcoholic hepatitis Qualified Code(s): K70.11 - Alcoholic hepatitis with ascites PLAN: Plan Abdominal ascites in the setting of alcoholic liver cirrhosis * admitted o/a of abdominal pain * last had paracentesis about 2-3 weeks ago. Usually has it every 2-3 weeks * CT abdomen showed massive ascites and distended gallbladder with some wall thickening and enhancement but without gallstones or biliary dilatation. It is difficult to check [place] sign due to massive ascites. She underwent large-volume paracentesis. Awaiting analysis for SBP. * Continue current medication regimen. And midodrine 10 mg p.o. 3 times daily to help decrease the amount of ascites that she makes on a daily basis. Check alpha-fetoprotein * Nadolol 10 mg p.o. twice daily for variceal prophylaxis #Alcoholic liver cirrhosis: On lactulose, nadolol and spironolactone DVT prophylaxis: SCDs Charges/Coding Visit Charges Inpatient E&M: 48775 Init Hosp L3
--- NOTE | 2023-12-05 16:38 | CHAPLAIN ---
Type of Pastoral Visit _x__ Initial Visit ___ Follow-up Visit ___ On-call Visit ___ General Patient Visit ___ Spiritual Assessment ___ Family Conference ___ Bereavement ___ Rapid Response ___ Code Blue ___ Other (describe below) Pastoral Care Referral From _x__ Patient ___ Family ___ Nurse ___ Physician ___ Hand Engraver ___ Compliance Director ___ Other (describe below) Sacrament/Intervention _x__ Active listening ___ Anointing ___ Mandaen ___ Bereavement ___ Communion ___ [place] exploration ___ _x__ Life review _x__ Prayer ___ Reconciliation ___ Sacrament of Sick _x__ Supportive presence ___ Wedding ___ Other (describe below) Pastoral Comments patient speaks of frequent admissions and the pain she feels; pt acknowledges her own failings but wants to feel better; pt admits to anxiety and need for support and hope; pt however cannot describe what she needs or what might help at this time; I just want to feel better; prayer and presence given
[2023-12-05] MEDS: Mag Hydrox/Al Hydrox/Simeth 30 ML UDC PO (18:43)
[2023-12-05] MEDS: 0.9% Saline Lock 10 ML Syringe IV (22:04)
[2023-12-05] MEDS: DiphenhydrAMINE 50 MG/ML Syringe 25 MG IV (22:04)
[2023-12-05] MEDS: Ceftriaxone 1 GM/50 ML BAG IV (22:09)
[2023-12-05] MEDS: MELATONIN 3 MG TABLET PO (23:21)
[2023-12-06 02:33] VITALS: BMI 32.9
[2023-12-06 04:00] VITALS: BP 108/60; PULSE 70; RESP 18; TEMP 36.7; O2SAT 99
[2023-12-06] MEDS: Lactulose 20 GM/30 ML UDC PO ×3 (06:21→22:12)
--- NOTE | 2023-12-06 06:27 | PN.GI_ITS ---
Subjective Subjective Patient feels a lot better after undergoing large-volume paracentesis. There was no sign of SBP in the paracentesis fluid. Objective Data Objective Data Vital Signs: Vital Signs Temp Pulse Resp BP Pulse Ox O2 Del Method 97.5 F L 79 16 116/72 96 Room Air 12/06/23 14:50 12/06/23 14:50 12/06/23 14:50 12/06/23 14:50 12/06/23 14:50 12/06/23 14:50 Oxygen Delivery Method Room Air Weight: 180 lb 1.883 oz Body Mass Index (BMI) 32.9 Intake & Output: Intake and Output for Last 24 Hours 12/04/23 12/05/23 12/06/23 23:59 23:59 23:59 Intake Total 599 / 599 800 / 800 Output Total 3200 / 3200 Balance -2601 / -2601 800 / 800 Lab / Micro Data 12/06/23 08:36 12/06/23 08:36 Labs: Laboratory Results - last 24 hr 12/05/23 08:50: Fluid Albumin 0.7, Fluid Amylase 13 12/05/23 : Fluid Source OTHER 12/06/23 08:36: WBC 5.6, RBC 3.27 L, Hgb 8.0 L, Hct 26.5 L, MCV 81.0, MCH 24.5 L , MCHC 30.2 L, RDW Std Deviation 75.8 H, RDW Coeff of Katalina 26.1 H, Plt Count 63 L , MPV 9.8, Immature Gran % (Auto) 0.400, Neut % (Auto) 48.6, Lymph % (Auto) 32.1, [place] % (Auto) 14.6 H, Eos % (Auto) 3.4, Baso % (Auto) 0.9, Absolute Neuts (auto) 2.7, Absolute Lymphs (auto) 1.78, Nucleated RBC % 0, PT 20.5 H, INR 1.8, Sodium 140, Potassium 3.8, Chloride 110 H, Carbon Dioxide 25.0, Anion Gap 5, BUN 10, Creatinine 0.80, Estim Creat Clear Calc 83.33, Est GFR (MDRD) Af Amer 98, Est GFR (MDRD) Non-Af 81, BUN/Creatinine Ratio 12.5, Glucose 95, Calcium 8.1 L, Total Bilirubin 1.30 H, Direct Bilirubin 0.69 H, AST 59 H, ALT 40, Alkaline Phosphatase 137 H, Total Protein 6.8, Albumin 2.3 L, Globulin 4.5 H Micro: Microbiology 12/05/23 Unknown Fluid - Ascites Gram Stain - Final Physical Exam Narrative Physical Examination: General: Awake, alert, oriented x 3 and cooperative, laying on her side in the ED, notes ongoing vague discomfort to the abdomen. Skin: Normal color, normal turgor, no icterus, no cyanosis except occasional staged ecchymoses. HEENT: AT/NC, EOMI, PERRLA, mildly dry MM, lack of dentition, no carotid bruits or JVD noted. Lungs: CTA bilaterally, moderate effort, mild decrease BL bases, no rales, ronchi or wheezing. Heart: Regular rate and rhythm; no gallop, rub audible. Abdomen: Soft, mild generalized discomfort but no rebound or guarding, mildly distended but not tense with reaccumulation of ascites noted, mildly hyperactive BS, given ascites reaccumulation difficult to appreciate HM. Extremities: No cyanosis, no clubbing, no marked significant peripheral edema but she has in the past. Neurological: Patient awake, alert, oriented as noted, cognitive function currently baseline intact; pupils equally reactive to light and accommodation, cranial nerves II-XII grossly normal, moving all 4 extremities, no focal deficits, strength mildly to moderately globally decreased secondary to acute complaints. Psychiatric: Affect appears uncomfortable, reports being fed up with her ongoing health issues, does admit to being depressed but denies suicidal ideation. Assessment & Plan Assessment/Plan (1) Cirrhosis of liver: QUALIFIERS: Hepatic cirrhosis type: unspecified hepatic cirrhosis Ascites presence: with ascites Qualified Code(s): K74.60 - Unspecified cirrhosis of liver; R18.8 - Other ascites PLAN: Plan The patient is a 48 y/o F came to ED with generalized abdominal pain and nausea for the last 2 days. Patient also has dysuria for past several days and was put on Macrobid a week ago by PCP but patient not taking it because of fear that might make her abdominal pain worse. Patient is not adherent with regimen of lactulose she is confused. Denies fever or chills. Worsening ascites with history of chronic decompensated hep C cirrhosis requiring multiple recurrent paracentesis, hepatic encephalopathy, thrombocyto penia and esophageal varices suggestive of portal hypertension: Patient is abdominal discomfort. Patient admitted to PCU. Patient went for paracentesis. Ultrasound called to send the fluid for analysis to calculate SAAG. Chronic thrombocytopenia due to decompensated cirrhosis. She ranges anywhere between 50,000-80,000. Nonadherent to lactulose. Continue IV ceftriaxone. Patient had 3200 mL clear fluid drained. 25 g IV albumin ordered. Charges/Coding Visit Charges Inpatient E&M: 63330 Subs Hosp L3
[2023-12-06 07:07] VITALS: PULSE 70; RESP 16; O2SAT 96
[2023-12-06] MEDS: Budesonide Respules 0.5 MG/2 ML AMPUL.NEB. INHALATION ×2 (07:07→22:01)
--- NOTE | 2023-12-06 07:49 | DCINST_ITS ---
Discharge Instructions Diet Discharge Diet: 8 Cup Fluid Restriction and 2000 mg Sodium Diet Activity Discharge Activity: Return to Normal Activity Weight Bearing Status: Weight bearing as tolerated Dressing / Incision Call your doctor if you observe: Fever of 101 or Higher, Coldness, Increased Pain, Numbness or Tingling, Change in Color, Inability to urinate, Inability to have a bowel movement, Shortness of breath, Dizziness, Fainting spells, Swelling in the ankles, Chest pain, Prolonged hiccupping, Increased palpitations (irregular heartbeat) and Calf discomfort Follow Up Care When: IN 2 WEEKS Test Results: Test results from this visit will be discussed in further detail at your follow- up appointment, if applicable. Discharge Plan Admission Admit Date/Time: 12/04/23 20:34 Attending Provider: Son Adams Primary Care Provider: Ang Acosta Consulting Providers: Sowmya Mirza; Ricardo Pollack Discharge Orders/Prescriptions Prescriptions: New furosemide 40 mg tablet 40 mg PO DAILY 30 Days Qty: 30 3RF spironolactone 100 mg tablet 100 mg PO DAILY 30 Days Qty: 30 3RF Rx Instructions: Hold if serum potassium more than 5.0. nicotine 21 mg/24 hr patch 24 hour 1 patch transdermal DAILY 28 Days Qty: 28 0RF Continued Vitamin D3 1,250 mcg OTHER QWEEK Rx Instructions: TAKES ON MODAY BY MOUTH lactulose 20 gram/30 mL solution 20 g PO TID 30 Days Qty: 2880 2RF Rx Instructions: And adjust the frequency to have him goal of 3 bowel movements per day gabapentin 100 mg capsule 100 mg PO Q12H Patient Comments: Take 1 capsule by mouth twice daily pt taking as needed. albuterol sulfate [Ventolin HFA] 90 mcg/actuation HFA aerosol inhaler 2 puff inhalation Q4H PRN PRN (Reason: shortness of breath or wheezing) ferrous sulfate [FeroSul] 325 mg (65 mg iron) tablet 325 mg PO DAILY ascorbate calcium (vitamin C) 500 mg tablet 500 mg PO DAILY Changed spironolactone 50 mg tablet 30 mg PO DAILY Qty: 45 2RF Discontinued furosemide [Lasix] 20 mg tablet 20 mg PO DAILY Qty: 90 0RF Referrals / Follow Up: Renae Ludwig [Other] - 04/11/24 8:00 am Ang Acosta MD [Primary Care Provider] - Within 1 Week Ricardo Pollack DPM [Med Staff - Active Staff] - Within 2 Weeks Son Adams MD [Med Staff - Active Staff] - Within 1 Month Disposition Disposition (needs filled in before D/C Order can be placed): Home, Self Care
[2023-12-06 08:46] LABS: Absolute Lymphocyte Count 1.78 X10^3/uL (0.83-4.51); Absolute Neutrophil Count 2.7 X10^3/uL (2.0-7.7); Basophil# 0.05 X10^3/uL; Basophil% 0.9 % (0-1); Differential Indicated SCAN CRITERIA MET; Eosinophil# 0.19 X10^3/uL; Eosinophils% 3.4 % (0-5); Hematocrit 26.5 % (37-47); Lymphocyte # 1.78 X10^3/ul (0.83-4.51); Lymphocyte % 32.1 % (19-41); Mean Corp Hgb Conc 30.2 g/dL (32-36); Mean Corpuscular Hgb 24.5 pg (27.0-32.0); Mean Platelet Vol. 9.8 fl (6.2-12.0); Monocyte# 0.81 X10^3/uL; Monocyte% 14.6 % (0-10); NRBC Flagged by Analyzer 0 % (0-5); Neutrophil % 48.6 % (47-70); POSITIVE COUNT YES; POSITIVE MORPHOLOGY YES; Platelet Count 63 K/mm3 (150-450); RBC Distribution Width CV 26.1 % (11.6-14.6); RBC Distribution Width SD 75.8 fl (35.1-43.9); Red Blood Count 3.27 M/mm3 (4.2-5.4); White Blood Count 5.6 K/mm3 (4.4-11.0)
[2023-12-06 08:52] VITALS: BP 122/84; PULSE 86; RESP 14; TEMP 36.4; O2SAT 97
[2023-12-06] MEDS: Furosemide 20 MG Tablet PO (09:02)
[2023-12-06] MEDS: Ascorbic Acid 500 MG Tablet PO (09:02)
[2023-12-06] MEDS: Spironolactone 25 MG Tablet 75 MG PO (09:02)
[2023-12-06] MEDS: Ferrous Sulfate 325 MG Tablet PO (09:02)
[2023-12-06] MEDS: Gabapentin 100 MG Capsule PO ×2 (09:02→22:08)
[2023-12-06 09:03] LABS: AST(SGOT) 59 U/L (15-37); Alanine Aminotransfer ALT/SGPT 40 U/L (13-56); Albumin, Serum 2.3 g/dL (3.2-5.0); Alkaline Phosphatase 137 U/L (45-117); Anion Gap 5 (5-15); BUN 10 mg/dL (7-18); BUN/Creat Ratio 12.5 RATIO (10-20); Bilirubin, Direct 0.69 mg/dL (0.00-0.30); Calcium,Total 8.1 mg/dL (8.5-10.1); Chloride 110 mmol/L (98-107); EST Glomerular Filtration Rate 81 mL/min (>60); Est Glom Filt Rate - Afr Amer 98 mL/min (>60); Estimated Creatinine Clearance 83.33 ml/min; Globulin 4.5 g/dL (2.2-4.2); Glucose 95 mg/dL (74-106); Potassium 3.8 mmol/L (3.5-5.1); Protein, Total 6.8 g/dL (6.4-8.2); Sodium Level 140 mmol/L (136-145)
[2023-12-06] MEDS: 0.9% Saline Lock 10 ML Syringe IV (09:03)
[2023-12-06 09:16] LABS: International Normalized Ratio 1.8; Prothrombin Time (Protime)PT. 20.5 SECONDS (11.7-14.9)
[2023-12-06 09:47] LABS: Source- Body Fluid OTHER
--- NOTE | 2023-12-06 09:59 | CASEMGMT ---
SHELL spoke with [facility] and Dr Khan is scheduling out to May. SHELL notified patient of the appt in March with Renae Ludwig and how far Dr Khan is scheduling out. Patient asked if there are any other psychiatrists. SHELL told patient SHELL will print a list of psychiatrists that take her insurance and she can call to see who has availability. SHELL provided patient with a list of psychiatrists from [facility] website. Yvonne Hartman MEDIA LIBRARIAN SAQIB
--- NOTE | 2023-12-06 11:09 | PCM.DC.SUM ---
Providers Date of Admission: 12/04/23 Primary Care Physician: Dr. Ang Acosta MD Consultations 12/05/23 18:08 Consult: Podiatry Routine Consulting Provider: Ricardo Pollack Reason for Consult: RIGHT ingrown toe nal with infection? EMERGENT Consult: No Notified: Yes Date Notified: 12/05/23 Time Notified: 18:08 Method of Notification: Text Reason For Visit: DECOMPENSATED CIRRHOSIS, UTI Diagnosis Discharge Diagnosis (1) Cirrhosis of liver: Status: Acute Code(s): K74.60 - Unspecified cirrhosis of liver Qualifiers: Hepatic cirrhosis type: unspecified hepatic cirrhosis Ascites presence: with ascites Qualified Code(s): K74.60 - Unspecified cirrhosis of liver; R18.8 - Other ascites (2) Ascites: Status: Resolved Code(s): R18.8 - Other ascites Qualifiers: Ascites type: due to alcoholic hepatitis Qualified Code(s): K70.11 - Alcoholic hepatitis with ascites Plan The patient is a 48 y/o F came to ED with generalized abdominal pain and nausea for the last 2 days. Patient also has dysuria for past several days and was put on Macrobid a week ago by PCP but patient not taking it because of fear that might make her abdominal pain worse. Patient is not adherent with regimen of lactulose she is confused. Denies fever or chills. #1. Worsening ascites with history of chronic decompensated hep C cirrhosis requiring multiple recurrent paracentesis, hepatic encephalopathy, thrombocytopenia and esophageal varices suggestive of portal hypertension: Patient is abdominal discomfort. Patient admitted to PCU. Patient went for paracentesis. Ultrasound called to send the fluid for analysis to calculate SAAG. Chronic thrombocytopenia due to decompensated cirrhosis. She ranges anywhere between 50,000-80,000. Nonadherent to lactulose. Continue IV ceftriaxone. Patient had 3200 mL clear fluid drained. 25 g IV albumin ordered. 12/05: Patient is alert and awake. Her abdominal pain has resolved. Paracentesis fluid reviewed. Cell count not consistent with SBP therefore ruled out. Fluid culture Gram stain no organism. Patient does not need antibiotic. Prescription sent for diuretic, furosemide increased to 40 mg daily and spironolactone 100 mg daily. Had nicotine patch prescription also sent. #2. Abnormal UA, UTI ruled out.: UA upon ED evaluation remarkable for nitrite and LE +500. WBC 25-50 cells, Urine culture pending. Empirically patient started on IV ceftriaxone. 12/05: Urine culture no growth. UTI ruled out. Does not need antibiotic. #3. Chronic COPD: Will hold all home inhalers in the interim placed on ATC budesonide therapy, PRN albuterol, HOB, IS parameters. #4. Incidental nonobstructive right renal stones: CT abdomen pelvis with nonobstructive right renal stones measuring up to 10 mm. #5. History of polysubstance abuse: Patient with prior history of IV drug abuse with last usage approximately 7 years prior to current presentation with previous heroin, methamphetamine, cannabis usage, UDS requested. = #6. Anxiety and depression: Per current list on a regimen, clarifying as patient in the past had been on a significant regimen including duloxetine, desvenlafaxine, aripiprazole home regimen. Given patient's significant displeasure with her ongoing health issues would be imperative to potentially restart medications as well as outpatient counseling. Case management consulted. #7. Chronic normocytic anemia/iron deficiency anemia: Admission hemoglobin 8.9, MCV 82.1, Baseline hemoglobin runs between 9 to 10 g. #8. Other multiple comorbidities include obesity grade 3 mainly fluid weight, GERD, obstructive sleep apnea on CPAP and chronic tobacco use/smoking. Patient had left toe ingrown nail and fungal infection. Podiatry consult requested. Patient can go home to see the plant operator/shift supervisor. CODE status: Patient does not have healthcare power of immigration attorney nor living will. Full Code status. Discharge medication reconciliation done. Discharge follow-up instructions completed. Discharge process discussed with the patient and all questions were answered to patient's satisfaction. Follow with PCP in 1 to 2 weeks Total time spent, exact 35 minutes on discharge meds reconciliation, examination, coordination of care with nurses and ancillary staff, review of imaging and blood test and discussion with the patient on follow-up instructions. Medications at Discharge Home Medications Vitamin D3 1,250 mcg OTHER QWEEK SUPPLEMENT 05/20/22 gabapentin 100 mg capsule 100 mg PO Q12H 07/20/23 lactulose 20 gram/30 mL oral solution 20 g (30 mL) PO TID 30 days #2,880 mL 10/07/23 albuterol sulfate 90 mcg/actuation aerosol inhaler (Ventolin HFA) 2 puff inhalation Q4H PRN PRN shortness of breath or wheezing 12/04/23 ascorbate calcium (vitamin C) 500 mg tablet 500 mg PO DAILY 12/04/23 ferrous sulfate 325 mg (65 mg iron) tablet (FeroSul) 325 mg PO DAILY 12/04/23 furosemide 40 mg tablet 40 mg PO DAILY 1 month #30 tabs 12/06/23 nicotine 21 mg/24 hr daily transdermal patch 1 patch transdermal DAILY 28 days #28 ea 12/06/23 spironolactone 100 mg tablet 100 mg PO DAILY 1 month #30 tabs 12/06/23 spironolactone 50 mg tablet 30 mg (0.6 x 50 mg) PO DAILY #45 tabs 12/06/23 Weight / BMI Weight Weight: 180 lb 1.883 oz Body Mass Index (BMI) 32.9 ABG / Lab / Microbiology Data 12/06/23 08:36 12/06/23 08:36 Laboratory: Laboratory Results - last 24 hr 12/05/23 : Fluid Source OTHER, Fluid Color LT YEL, Fluid Appearance CLEAR, Fluid WBC 0.136, Fluid RBC 101, Fluid Tot Cell Count 0.189 H, Fld Polynuclear WBCs # 0.006, Fld Polynuclear WBCs % 4.4, Fluid Mononuclear WBCs 0.130, Fld Mononuclear WBCs % 95.6, Fluid Lymphocytes 27, Fluid Macrophages 69, Fld Mesothelial Cells 4, Fl Pathologist Comment May follow, Fluid Comment 2 SEE COMMENT 12/06/23 08:36: WBC 5.6, RBC 3.27 L, Hgb 8.0 L, Hct 26.5 L, MCV 81.0, MCH 24.5 L, MCHC 30.2 L, RDW Std Deviation 75.8 H, RDW Coeff of Katalina 26.1 H, Plt Count 63 L, MPV 9.8, Immature Gran % (Auto) 0.400, Neut % (Auto) 48.6, Lymph % (Auto) 32.1, [place] % (Auto) 14.6 H, Eos % (Auto) 3.4, Baso % (Auto) 0.9, Absolute Neuts (auto) 2.7, Absolute Lymphs (auto) 1.78, Nucleated RBC % 0, PT 20.5 H, INR 1.8, Sodium 140, Potassium 3.8, Chloride 110 H, Carbon Dioxide 25.0, Anion Gap 5, BUN 10, Creatinine 0.80, Estim Creat Clear Calc 83.33, Est GFR (MDRD) Af Amer 98, Est GFR (MDRD) Non-Af 81, BUN/Creatinine Ratio 12.5, Glucose 95, Calcium 8.1 L, Total Bilirubin 1.30 H, Direct Bilirubin 0.69 H, AST 59 H, ALT 40, Alkaline Phosphatase 137 H, Total Protein 6.8, Albumin 2.3 L, Globulin 4.5 H Microbiology: Microbiology 12/05/23 Unknown Fluid - Ascites Gram Stain - Final D/C Instructions Discharge Diet: 8 Cup Fluid Restriction and 2000 mg Sodium Diet Weight Bearing Status: Weight bearing as tolerated Call your doctor if you observe: Fever of 101 or Higher, Coldness, Increased Pain, Numbness or Tingling, Change in Color, Inability to urinate, Inability to have a bowel movement, Shortness of breath, Dizziness, Fainting spells, Swelling in the ankles, Chest pain, Prolonged hiccupping, Increased palpitations (irregular heartbeat) and Calf discomfort When: IN 2 WEEKS Meaningful Use Info Meaningful Use Diagnoses (Choose all that apply): None applicable Discharge Plan Admission Admit Date/Time: 12/04/23 20:34 Attending Provider: Son Adams Primary Care Provider: Ang Acosta Consulting Providers: Sowmya Mirza; Ricardo Pollack Discharge Orders/Prescriptions Prescriptions: New furosemide 40 mg tablet 40 mg PO DAILY 30 Days Qty: 30 3RF spironolactone 100 mg tablet 100 mg PO DAILY 30 Days Qty: 30 3RF Rx Instructions: Hold if serum potassium more than 5.0. nicotine 21 mg/24 hr patch 24 hour 1 patch transdermal DAILY 28 Days Qty: 28 0RF Continued Vitamin D3 1,250 mcg OTHER QWEEK Rx Instructions: TAKES ON MODAY BY MOUTH lactulose 20 gram/30 mL solution 20 g PO TID 30 Days Qty: 2880 2RF Rx Instructions: And adjust the frequency to have him goal of 3 bowel movements per day gabapentin 100 mg capsule 100 mg PO Q12H Patient Comments: Take 1 capsule by mouth twice daily pt taking as needed. albuterol sulfate [Ventolin HFA] 90 mcg/actuation HFA aerosol inhaler 2 puff inhalation Q4H PRN PRN (Reason: shortness of breath or wheezing) ferrous sulfate [FeroSul] 325 mg (65 mg iron) tablet 325 mg PO DAILY ascorbate calcium (vitamin C) 500 mg tablet 500 mg PO DAILY Changed spironolactone 50 mg tablet 30 mg PO DAILY Qty: 45 2RF Discontinued furosemide [Lasix] 20 mg tablet 20 mg PO DAILY Qty: 90 0RF Referrals / Follow Up: Renae Ludwig [Other] - 04/11/24 8:00 am Ang Acosta MD [Primary Care Provider] - Within 1 Week Ricardo Pollack DPM [Med Staff - Active Staff] - Within 2 Weeks Son Adams MD [Med Staff - Active Staff] - Within 1 Month Disposition Disposition (needs filled in before D/C Order can be placed): Home, Self Care Charges/Coding Visit Charges Inpatient E&M: 01758 Disch Hosp >30min
[2023-12-06 14:33] LABS: Albumin, Body Fluid 0.7 g/dL (Not Estab.); Amylase Body Fluid 13 U/L (.)
[2023-12-06 14:50] VITALS: BP 116/72; PULSE 79; RESP 16; TEMP 36.4; O2SAT 96
--- NOTE | 2023-12-06 16:36 | PN.HOSP_ITS ---
Reason for Visit Reason for Visit: Diagnoses Alcoholic hepatitis with ascites (12/04/23) Unspecified cirrhosis of liver (12/04/23) Other ascites (12/04/23) Objective Data Objective Data Vital Signs: Vital Signs Temp Pulse Resp BP Pulse Ox O2 Del Method 97.5 F L 79 16 116/72 96 Room Air 12/06/23 14:50 12/06/23 14:50 12/06/23 14:50 12/06/23 14:50 12/06/23 14:50 12/06/23 14:50 Oxygen Delivery Method Room Air Weight: 180 lb 1.883 oz Body Mass Index (BMI) 32.9 Intake & Output: Intake and Output for Last 24 Hours 12/04/23 12/05/23 12/06/23 23:59 23:59 23:59 Intake Total 599 / 599 800 / 800 Output Total 3200 / 3200 Balance -2601 / -2601 800 / 800 Lab / Micro Data 12/06/23 08:36 12/06/23 08:36 Labs: Laboratory Results - last 24 hr 12/05/23 08:50: Fluid Albumin 0.7, Fluid Amylase 13 12/05/23 : Fluid Source OTHER 12/06/23 08:36: WBC 5.6, RBC 3.27 L, Hgb 8.0 L, Hct 26.5 L, MCV 81.0, MCH 24.5 L , MCHC 30.2 L, RDW Std Deviation 75.8 H, RDW Coeff of Katalina 26.1 H, Plt Count 63 L , MPV 9.8, Immature Gran % (Auto) 0.400, Neut % (Auto) 48.6, Lymph % (Auto) 32.1, [place] % (Auto) 14.6 H, Eos % (Auto) 3.4, Baso % (Auto) 0.9, Absolute Neuts (auto) 2.7, Absolute Lymphs (auto) 1.78, Nucleated RBC % 0, PT 20.5 H, INR 1.8, Sodium 140, Potassium 3.8, Chloride 110 H, Carbon Dioxide 25.0, Anion Gap 5, BUN 10, Creatinine 0.80, Estim Creat Clear Calc 83.33, Est GFR (MDRD) Af Amer 98, Est GFR (MDRD) Non-Af 81, BUN/Creatinine Ratio 12.5, Glucose 95, Calcium 8.1 L, Total Bilirubin 1.30 H, Direct Bilirubin 0.69 H, AST 59 H, ALT 40, Alkaline Phosphatase 137 H, Total Protein 6.8, Albumin 2.3 L, Globulin 4.5 H Micro: Microbiology 12/05/23 Unknown Fluid - Ascites Gram Stain - Final Physical Exam Narrative Seen and examined. Patient again complained of abdominal pain mainly upper after eating food. Since patient might have pain from stomach stretch/distention. Discharge canceled. Bentyl ordered. Patient crying. She had paracentesis yesterday. Physical exam General: Alert, Oriented x3, Cooperative, obesity grade 2 BMI 33.5 kg/m? HEENT: Atraumatic, PERRLA, EOMI, Normocephalic Oral: No Gingival or Mucosal Lesions/ Ulcerations Neck: Supple, No JVD, Negative Carotid Bruits Chest wall/Lungs: Air entry diminished in bilateral lung bases. No crep itation/rhonchi Cardiovascular: Regular rate, Regular Rhythm, Normal S1, Normal S2, No M/G/R Abdomen: Bowel Sounds Present, still has mild ascites. Abdomen is soft. No significant tenderness/rebound tenderness. : No dysuria. No renal angle tenderness. No suprapubic tenderness. Extremities: No edema, Capillary Refill Less than 3 Seconds Skin: No rashes, No breakdown Musculoskeletal: Ingrown toenail. No Tenderness to Palpation of Joints or Extremities Neurological: Cranial nerves II-XII grossly intact, DTR 2+/4. No acute focal neurological deficit. Psych/Mental Status: Flat affect. Assessment & Plan Assessment/Plan (1) Cirrhosis of liver: QUALIFIERS: Hepatic cirrhosis type: unspecified hepatic cirrhosis Ascites presence: with ascites Qualified Code(s): K74.60 - Unspecified cirrhosis of liver; R18.8 - Other ascites (2) Ascites: QUALIFIERS: Ascites type: due to alcoholic hepatitis Qualified Code(s): K70.11 - Alcoholic hepatitis with ascites PLAN: Plan The patient is a 48 y/o F came to ED with generalized abdominal pain and nausea for the last 2 days. Patient also has dysuria for past several days and was put on Macrobid a week ago by PCP but patient not taking it because of fear that might make her abdominal pain worse. Patient is not adherent with regimen of lactulose she is confused. Denies fever or chills. #1. Worsening ascites with history of chronic decompensated hep C cirrhosis requiring multiple recurrent paracentesis, hepatic encephalopathy, thrombo cytopenia and esophageal varices suggestive of portal hypertension: Patient is abdominal discomfort. Patient admitted to PCU. Patient went for paracentesis. Ultrasound called to send the fluid for analysis to calculate SAAG. Chronic thrombocytopenia due to decompensated cirrhosis. She ranges anywhere between 50,000-80,000. Nonadherent to lactulose. Continue IV ceftriaxone. Patient had 3200 mL clear fluid drained. 25 g IV albumin ordered. 12/05: Patient is alert and awake. Her abdominal pain has resolved. Paracentesis fluid reviewed. Cell count not consistent with SBP therefore ruled out. Fluid culture Gram stain no organism. Patient does not need antibiotic. 12/05 about 4 PM: Complain of abdominal pain discharge is canceled because of abdominal pain. Seems mainly from stomach distention. Bentyl ordered. Diet changed to soft bite sized easily chewable food. #2. Abnormal UA, UTI ruled out.: UA upon ED evaluation remarkable for nitrite and LE +500. WBC 25-50 cells, Urine culture pending. Empirically patient started on IV ceftriaxone. 3: Urine culture no growth. UTI ruled out. Does not need antibiotic. #3. Chronic COPD: Will hold all home inhalers in the interim placed on ATC budesonide therapy, PRN albuterol, HOB, IS parameters. #4. Incidental nonobstructive right renal stones: CT abdomen pelvis with nonobstructive right renal stones measuring up to 10 mm. #5. History of polysubstance abuse: Patient with prior history of IV drug abuse with last usage approximately 7 years prior to current presentation with previous heroin, methamphetamine, cannabis usage, UDS requested. = #6. Anxiety and depression: Per current list on a regimen, clarifying as patient in the past had been on a significant regimen including duloxetine, desvenlafaxine, aripiprazole home regimen. Given patient's significant displeasure with her ongoing health issues would be imperative to potentially restart medications as well as outpatient counseling. Case management consulted. #7. Chronic normocytic anemia/iron deficiency anemia: Admission hemoglobin 8.9, MCV 82.1, Baseline hemoglobin runs between 9 to 10 g. #8. Other multiple comorbidities include obesity grade 3 mainly fluid weight, GERD, obstructive sleep apnea on CPAP and chronic tobacco use/smoking. Patient had left toe ingrown nail and fungal infection. Podiatry consult requested. Patient can go home to see the office messenger helper. CODE status: Patient does not have healthcare power of [place] attorney nor living will. Full Code status. Discharge medication reconciliation done. Discharge follow-up instructions completed. Discharge process discussed with the patient and all questions were answered to patient's satisfaction. Follow with PCP in 1 to 2 weeks Total time spent, exact 35 minutes on discharge meds reconciliation, examination, coordination of care with nurses and ancillary staff, review of imaging and blood test and discussion with the patient on follow-up instructions. Charges/Coding Visit Charges Inpatient E&M: 99322 Subs Hosp L2
[2023-12-06] MEDS: Dicyclomine 10 MG Capsule PO (16:43)
[2023-12-06] MEDS: Acetaminophen 325 MG Tablet 650 MG PO (16:53)
[2023-12-06] MEDS: oxyCODONE 5 MG Tablet PO (18:52)
[2023-12-06 22:01] VITALS: RESP 18
[2023-12-06 22:10] VITALS: BP 111/70; PULSE 72; RESP 16; TEMP 36.7; O2SAT 95
[2023-12-06] MEDS: Ceftriaxone 1 GM/50 ML BAG IV (22:12)
[2023-12-06] MEDS: DiphenhydrAMINE 50 MG/ML Syringe 25 MG IV (22:49)
[2023-12-06] MEDS: MELATONIN 3 MG TABLET PO (22:49)
[2023-12-07 01:38] VITALS: BMI 32.1
[2023-12-07 04:10] VITALS: BP 110/65; PULSE 68; RESP 16; TEMP 36.7; O2SAT 96
[2023-12-07] MEDS: Dicyclomine 10 MG Capsule PO ×2 (06:33→10:30)
[2023-12-07] MEDS: Lactulose 20 GM/30 ML UDC PO (06:33)
[2023-12-07] MEDS: Budesonide Respules 0.5 MG/2 ML AMPUL.NEB. INHALATION (06:56)
--- NOTE | 2023-12-07 07:13 | PN.GI_ITS ---
Subjective Subjective Patient said she wants to go home. Objective Data Objective Data Vital Signs: Vital Signs Temp Pulse Resp BP Pulse Ox O2 Del Method 97.0 F L 78 16 112/68 99 Room Air 12/07/23 14:30 12/07/23 14:30 12/07/23 14:30 12/07/23 14:30 12/07/23 14:30 12/07/23 14:30 Oxygen Delivery Method Room Air Weight: 175 lb 11.335 oz Body Mass Index (BMI) 32.1 Intake & Output: Intake and Output for Last 24 Hours 12/05/23 12/06/23 12/07/23 23:59 23:59 23:59 Intake Total 599 / 599 1375 / 1375 110 / 110 Output Total 3200 / 3200 3200 / 3200 Balance -2601 / -2601 1375 / 1375 -3090 / -3090 Lab / Micro Data 12/07/23 07:10 12/07/23 07:10 Labs: Laboratory Results - last 24 hr 12/07/23 07:10: WBC 5.3, RBC 3.45 L, Hgb 8.4 L, Hct 27.9 L, MCV 80.9 L, MCH 24.3 L, MCHC 30.1 L, RDW Std Deviation 75.2 H, RDW Coeff of Katalina 25.8 H, Plt Count 59 L, Immature Gran % (Auto) 0.400, Neut % (Auto) 47.4, Lymph % (Auto) 34.6, [place] % (Auto) 12.2 H, Eos % (Auto) 4.6, Baso % (Auto) 0.8, Absolute Neuts (auto) 2.5, Absolute Lymphs (auto) 1.82, Nucleated RBC % 0, Platelet Estimate MKD DEC, Hypochromasia 1+, Anisocytosis 1+, Sodium 140, Potassium 3.7, Chloride 110 H, Carbon Dioxide 26.0, Anion Gap 4 L, BUN 9, Creatinine 0.75, Estim Creat Clear Calc 87.75, Est GFR (MDRD) Af Amer 105, Est GFR (MDRD) Non-Af 87, BUN/Creatinine Ratio 12.0, Glucose 101, Calcium 7.9 L, Total Bilirubin 1.30 H, Direct Bilirubin 0.70 H, AST 53 H, ALT 36, Alkaline Phosphatase 123 H, Total Protein 6.7, Albumin 2.2 L, Globulin 4.5 H Micro: Microbiology 12/05/23 Unknown Fluid - Ascites Gram Stain - Final 12/05/23 Unknown Fluid - Ascites Anaerobic Culture - Preliminary No growth in 48 hours. Physical Exam Narrative Seen and examined. Patient again complained of abdominal pain mainly upper after eating food. Since patient might have pain from stomach stretch/distention. Discharge c anceled. Bentyl ordered. Patient crying. She had paracentesis yesterday. Physical exam General: Alert, Oriented x3, Cooperative, obesity grade 2 BMI 33.5 kg/m? HEENT: Atraumatic, PERRLA, EOMI, Normocephalic Oral: No Gingival or Mucosal Lesions/ Ulcerations Neck: Supple, No JVD, Negative Carotid Bruits Chest wall/Lungs: Air entry diminished in bilateral lung bases. No crepitation/rhonchi Cardiovascular: Regular rate, Regular Rhythm, Normal S1, Normal S2, No M/G/R Abdomen: Bowel Sounds Present, mild abdominal distention. Still has mild ascites. Abdomen is soft. No significant tenderness/rebound tenderness. : No dysuria. No renal angle tenderness. No suprapubic tenderness. Extremities: No edema, Capillary Refill Less than 3 Seconds Skin: No rashes, No breakdown Musculoskeletal: Ingrown toenail. No Tenderness to Palpation of Joints or Extremities Neurological: Cranial nerves II-XII grossly intact, DTR 2+/4. No acute focal neurological deficit. Psych/Mental Status: Flat affect. Assessment & Plan Assessment/Plan (1) Cirrhosis of liver: QUALIFIERS: Hepatic cirrhosis type: unspecified hepatic cirrhosis Ascites presence: with ascites Qualified Code(s): K74.60 - Unspecified cirrhosis of liver; R18.8 - Other ascites (2) Ascites: QUALIFIERS: Ascites type: due to alcoholic hepatitis Qualified Code(s): K70.11 - Alcoholic hepatitis with ascites PLAN: Plan The patient is a 48 y/o F came to ED with generalized abdominal pain and nausea for the last 2 days. Patient also has dysuria for past several days and was put on Macrobid a week ago by PCP but patient not taking it because of fear that might make her abdominal pain worse. Patient is not adherent with regimen of lactulose she is confused. Denies fever or chills. #1. Worsening ascites with history of chronic decompensated hep C cirrhosis requiring multiple recurrent paracentesis, hepatic encephalopathy, t hrombocytopenia and esophageal varices suggestive of portal hypertension: Patient is abdominal discomfort. Patient admitted to PCU. Patient went for paracentesis. Ultrasound called to send the fluid for analysis to calculate SAAG. Chronic thrombocytopenia due to decompensated cirrhosis. She ranges anywhere between 50,000-80,000. Nonadherent to lactulose. Continue IV ceftriaxone. Patient had 3200 mL clear fluid drained. 25 g IV albumin ordered. 3: Patient is alert and awake. Her abdominal pain has resolved. Paracentesis fluid reviewed. Cell count not consistent with SBP therefore ruled out. Fluid culture Gram stain no organism. Patient does not need antibiotic. 12/05 about 4 PM: Complain of abdominal pain discharge is canceled because of abdominal pain. Seems mainly from stomach distention. Bentyl ordered. Diet changed to soft bite sized easily chewable food. #2. Abnormal UA, UTI ruled out.: UA upon ED evaluation remarkable for nitrite and LE +500. WBC 25-50 cells, Urine culture pending. Empirically patient started on IV ceftriaxone. 12/05: Urine culture no growth. UTI ruled out. Does not need antibiotic. #3. Chronic COPD: Will hold all home inhalers in the interim placed on ATC budesonide therapy, PRN albuterol, HOB, IS parameters. #4. Incidental nonobstructive right renal stones: CT abdomen pelvis with nonobstructive right renal stones measuring up to 10 mm. #5. History of polysubstance abuse: Patient with prior history of IV drug abuse with last usage approximately 7 years prior to current presentation with previous heroin, methamphetamine, cannabis usage, UDS requested. = #6. Anxiety and depression: Per current list on a regimen, clarifying as patient in the past had been on a significant regimen including duloxetine, desvenlafaxine, aripiprazole home regimen. Given patient's significant displeasure with her ongoing health issues would be imperative to potentially restart medications as well as outpatient counseling. Case management consulted. #7. Chronic normocytic anemia/iron deficiency anemia: Admission hemoglobin 8.9, MCV 82.1, Baseline hemoglobin runs between 9 to 10 g. #8. Other multiple comorbidities include obesity grade 3 mainly fluid weight, GERD, obstructive sleep apnea on CPAP and chronic tobacco use/smoking. Patient had left toe ingrown nail and fungal infection. Podiatry consult requested. Patient can go home to see the residential framing carpenter. CODE status: Patient does not have healthcare power of telephone maintainer nor living will. Full Code status. Discharge medication reconciliation done. Discharge follow-up instructions completed. Discharge process discussed with the patient and all questions were answered to patient's satisfaction. Follow with PCP in 1 to 2 weeks Total time spent, exact 35 minutes on discharge meds reconciliation, examination, coordination of care with nurses and ancillary staff, review of imaging and blood test and discussion with the patient on follow-up instructions. Charges/Coding Visit Charges Inpatient E&M: 91735 Subs Hosp L3
--- NOTE | 2023-12-07 07:20 | DCINST_ITS ---
Discharge Instructions Diet Discharge Diet: Soft diet (Low residue with no fatty or oily food), Low fat / Low cholesterol and 8 Cup Fluid Restriction Activity Weight Bearing Status: Weight bearing as tolerated Dressing / Incision Call your doctor if you observe: Fever of 101 or Higher, Coldness, Increased Pain, Numbness or Tingling, Change in Color, Inability to urinate, Inability to have a bowel movement, Using more than 1 pad per hour, Shortness of breath, Dizziness, Fainting spells, Swelling in the ankles, Chest pain, Prolonged hiccupping, Increased palpitations (irregular heartbeat) and Calf discomfort Follow Up Care Test Results: Test results from this visit will be discussed in further detail at your follow- up appointment, if applicable. Discharge Plan Admission Admit Date/Time: 12/04/23 20:34 Primary Reason for Your Visit: Decompensated cirrhosis with ascites. SBP ruled out. Attending Provider: Son Adams Primary Care Provider: Ang Acosta Consulting Providers: Sowmya Mirza; Ricardo Pollack Discharge Orders/Prescriptions Prescriptions: New furosemide 40 mg tablet 40 mg PO DAILY 30 Days Qty: 30 3RF spironolactone 100 mg tablet 100 mg PO DAILY 30 Days Qty: 30 3RF Rx Instructions: Hold if serum potassium more than 5.0. nicotine 21 mg/24 hr Patch 24 Hour 21 mg transdermal DAILY 28 Days Qty: 28 0RF dicyclomine 10 mg Capsule 10 mg PO 0730,1130,1630,2200 PRN (Reason: abdominal cramps) 30 Days Qty: 120 2RF pantoprazole [Protonix] 40 mg tablet,delayed release (DR/EC) 40 mg PO BID 30 Days Qty: 60 1RF midodrine 10 mg tablet 10 mg PO TID 30 Days Qty: 90 2RF Rx Instructions: do not give last dose of day after 6PM or within 4 hrs of bedtime Hold if SBP more than 110 mmHg Continued Vitamin D3 1,250 mcg OTHER QWEEK Rx Instructions: TAKES ON MODAY BY MOUTH lactulose 20 gram/30 mL solution 20 g PO TID 30 Days Qty: 2880 2RF Rx Instructions: And adjust the frequency to have him goal of 3 bowel movements per day gabapentin 100 mg capsule 100 mg PO Q12H Patient Comments: Take 1 capsule by mouth twice daily pt taking as needed. albuterol sulfate [Ventolin HFA] 90 mcg/actuation HFA aerosol inhaler 2 puff inhalation Q4H PRN PRN (Reason: shortness of breath or wheezing) ferrous sulfate [FeroSul] 325 mg (65 mg iron) tablet 325 mg PO DAILY ascorbate calcium (vitamin C) 500 mg tablet 500 mg PO DAILY Changed spironolactone 50 mg tablet 30 mg PO DAILY Qty: 45 2RF Discontinued furosemide [Lasix] 20 mg tablet 20 mg PO DAILY Qty: 90 0RF Referrals / Follow Up: Renae Ludwig [Other] - 04/11/24 8:00 am Ang Acosta MD [Primary Care Provider] - 12/08/23 11:00 am (appointment is with Alba Lowe N.P. Please arrive by 10:45.) Ricardo Pollack DPM [Med Staff - Active Staff] - 12/14/23 10:30 am (Bring insurance info to appointment and paperwork from Dr. Pollack office.) Son Adams MD [Med Staff - Active Staff] - Within 1 Month Disposition Disposition (needs filled in before D/C Order can be placed): Home, Self Care
[2023-12-07 07:35] LABS: Absolute Lymphocyte Count 1.82 X10^3/uL (0.83-4.51); Absolute Neutrophil Count 2.5 X10^3/uL (2.0-7.7); Basophil# 0.04 X10^3/uL; Basophil% 0.8 % (0-1); Eosinophil# 0.24 X10^3/uL; Eosinophils% 4.6 % (0-5); Hematocrit 27.9 % (37-47); Hemoglobin 8.4 g/dL (12.0-15.0); Lymphocyte # 1.82 X10^3/ul (0.83-4.51); Lymphocyte % 34.6 % (19-41); Mean Corp Hgb Conc 30.1 g/dL (32-36); Mean Corpuscular Hgb 24.3 pg (27.0-32.0); Mean Corpuscular Volume 80.9 fL (81-99); Monocyte# 0.64 X10^3/uL; Monocyte% 12.2 % (0-10); NRBC Flagged by Analyzer 0 % (0-5); Neutrophil % 47.4 % (47-70); POSITIVE COUNT YES; POSITIVE MORPHOLOGY YES; Platelet Count 59 K/mm3 (150-450); RBC Distribution Width CV 25.8 % (11.6-14.6); RBC Distribution Width SD 75.2 fl (35.1-43.9); Red Blood Count 3.45 M/mm3 (4.2-5.4); White Blood Count 5.3 K/mm3 (4.4-11.0)
[2023-12-07 07:41] LABS: Differential Indicated SCAN CRITERIA MET
--- NOTE | 2023-12-07 07:48 | CON.PCM_ITS ---
Assessment & Plan Assessment/Plan (1) Iron deficiency anemia: QUALIFIERS: Iron deficiency anemia type: chronic blood loss Qualified Code(s): D50.0 - Iron deficiency anemia secondary to blood loss (chronic) (2) Hepatitis C, chronic: QUALIFIERS: Hepatic coma status: without hepatic coma Qualified Code(s): B18.2 - Chronic viral hepatitis C (3) Cirrhosis of liver: QUALIFIERS: Hepatic cirrhosis type: unspecified hepatic cirrhosis Ascites presence: with ascites Qualified Code(s): K74.60 - Unspecified cirrhosis of liver; R18.8 - Other ascites (4) Chronic pain of toe of right foot: (5) Tinea unguium: (6) Nail dystrophy: PLAN: Plan Patient seen and evaluated Patient was consulted to podiatry for possible ingrown toenail. There is no signs of ingrown toenail on examination. There is no infection of the right hallux nail or bilateral lower extremity. On examination the right hallux nail is thickened, discolored, dystrophic with some subungual debris's and onycholysis. Nail is painful to direct dorsal pre ssure secondary to overall thickness of the nail. Nail does appear to have some evidence of previous traumas leading to nail thickness. Right hallux nail was debrided in length utilizing a nail nipper. Medicine currently following for medical management Gastrointestinal physician following Discussed with patient to keep nails trimmed as overall length does contribute to her pain. And wear proper fitting shoe gear Podiatry to sign off Jr. Mita [facility] [phone] HPI Consult Data Date of Consult: 12/07/23 HPI Narrative Reason for Consultation: Possible ingrown toenail right hallux HPI Narrative: CAROLINA HIGHTOWER, is a 48 F who presents to [facility] on 12/04/2023 with complaint of abdominal pain and dysuria. She has PMHx age of obesity, chronic anemia/iron deficient anemia, depression and anxiety, chronic hepatitis C with cirrhosis, history of polysubstance abuse, tobacco use. She states that her abdominal pain had worsened over the weekend with difficulty urinating. Denies fever, vomiting, chills. She was consulted to podiatry for a possible in grown toenail of the right hallux. Patient does state hallux does have pain but denies toenail being ingrown and states pain is only from nail being thick and long. PFSH Medical History Alcohol abuse Anemia Anxiety and depression Chronic pain Cirrhosis of liver COPD (chronic obstructive pulmonary disease) Gastric reflux GERD (gastroesophageal reflux disease) Hepatitis History of diverticulitis History of renal disease Hyperbilirubinemia Kidney stones Low iron Marijuana use Migraine headache MRSA infection Obesity Open wound Polysubstance abuse Restless legs Seizures Sleep apnea Smoker Substance abuse Thrombocytopenia Tobacco use Home Medications Vitamin D3 1,250 mcg OTHER QWEEK SUPPLEMENT 05/20/22 [History Last Taken Unknown] gabapentin 100 mg capsule 100 mg PO Q12H 07/20/23 [History Last Taken Unknown] lactulose 20 gram/30 mL oral solution 20 g (30 mL) PO TID 30 days #2,880 mL 10/07/23 [Rx Last Taken Unknown] albuterol sulfate 90 mcg/actuation aerosol inhaler (Ventolin HFA) 2 puff inhalat ion Q4H PRN PRN shortness of breath or wheezing 12/04/23 [History Last Taken Unknown] ascorbate calcium (vitamin C) 500 mg tablet 500 mg PO DAILY 12/04/23 [History Last Taken Unknown] ferrous sulfate 325 mg (65 mg iron) tablet (FeroSul) 325 mg PO DAILY 12/04/23 [History Last Taken Unknown] furosemide 40 mg tablet 40 mg PO DAILY 1 month #30 tabs 12/06/23 [Rx Last Taken Unknown] nicotine 21 mg/24 hr daily transdermal patch 1 patch transdermal DAILY 28 days #28 ea 12/06/23 [Rx Last Taken Unknown] spironolactone 100 mg tablet 100 mg PO DAILY 1 month #30 tabs 12/06/23 [Rx Last Taken Unknown] spironolactone 50 mg tablet 30 mg (0.6 x 50 mg) PO DAILY #45 tabs 12/06/23 [Rx Last Taken Unknown] Allergy/AdvReac Type Severity Reaction Status Date / Time bupropion HCl Allergy SEIZURES Verified 12/04/23 16:48 [From Wellbutrin] codeine Allergy Rash Verified 12/04/23 16:48 Family History Mother Diabetes Father Cancer HX Throat CA. Surgical History H/O tubal ligation History of liver biopsy Social History (Updated 12/04/23 @ 21:[address] Sowmya Mirza MD) adopted: No household members: family housing: other number of children: 3 current occupational status: unemployed pets and animals: Yes history of recent travel: No sexually active: Yes Smoking Status: Current every day smoker tobacco type: cigarettes Smoking packs per day: 1 Smoking cigarettes per day: 20.0 second hand exposure: Yes alcohol intake: current alcohol intake frequency: a few times a month substance use type: former substance user Date of last use: heroin, marijuana, heroin and methamphetamine seatbelt use: always do you feel safe at home: Yes ROS Constitutional Constitutional: Denies anorexia, chills or fever(s) Eyes Eyes: Denies blurry vision, diplopia or loss of vision ENT HEENT: Denies dysphagia, nasal congestion or sore throat Cardiovascular Cardiovascular: Denies chest pain, claudication or palpitations Respiratory/Chest Respiratory/Chest: Denies chest congestion, cough, dyspnea or wheezing Gastrointestinal Gastrointestinal: Reports abdominal pain; Denies constipation, diarrhea, nausea or vomiting Genitourinary Genitourinary: Denies dysuria, hematuria, urinary frequency or urinary urgency Musculoskeletal Musculoskeletal: Denies joint pain, joint stiffness or joint swelling Integumentary Integumentary: Denies lesions, pruritus or rash Neurologic Neurologic: Denies dizziness, numbness or seizures Psychiatric Psychiatric: Reports anxiety and depression Endocrine Endocrinology: Denies cold intolerance, heat intolerance, polydipsia or polyphagia Hematologic/Lymphatic Hematologic/Lymphatic: Denies easy bleeding or easy bruising Allergic/Immunologic Allergic/Immunologic: Denies wheezing Physical Exam Const alert, oriented x3 and no apparent distress General Appearance: cooperative HEENT normocephalic Neck General: normal visual inspection Lymph Lymphatic: no lymphadenopathy noted and no lymphedema noted Resp normal respiratory effort Cardio regular rate and regular rhythm Extremity normal to inspection, normal capillary refill, no joint enlargement and no calf tenderness Extremity Narrative: Vascular: DP and PT pulses palpable to bilateral lower extremity. Capillary fill time is adequate to digits of both feet. Normal temperature gradient b ilateral. Hair growth is present to digits bilateral. Neurologic: Motor function intact bilateral. No focal sensory deficits bilateral. Epicritic sensation intact bilateral. Dermatological: Skin well-hydrated without rash or lesion bilateral. Nails 1 through 5 bilateral are intact and maintained with the exception of right hallux nail which is thickened, discolored, dystrophic. There is some onycholysis of the right hallux nail with some subungual debris. There is some pain to palpation with direct dorsal pressure of this nail. No evidence of ingrown toenail. No signs of infection. Musculoskeletal: Muscle strength 5 of 5 age-appropriate. Range of motion full, smooth, pain-free to ankle joint, subtalar joint, midtarsal joint, and first metatarsophalangeal joint bilateral. Skin no rashes or lesions noted, skin turgor normal and no jaundice Neuro moves all extremities Lab / Micro Data 12/07/23 07:10 12/06/23 08:36 Labs: Laboratory Results - last 24 hr 12/05/23 08:50: Fluid Albumin 0.7, Fluid Amylase 13 12/05/23 : Fluid Source OTHER 12/06/23 08:36: WBC 5.6, RBC 3.27 L, Hgb 8.0 L, Hct 26.5 L, MCV 81.0, MCH 24.5 L , MCHC 30.2 L, RDW Std Deviation 75.8 H, RDW Coeff of Katalina 26.1 H, Plt Count 63 L , MPV 9.8, Immature Gran % (Auto) 0.400, Neut % (Auto) 48.6, Lymph % (Auto) 32.1, [place] % (Auto) 14.6 H, Eos % (Auto) 3.4, Baso % (Auto) 0.9, Absolute Neuts (auto) 2.7, Absolute Lymphs (auto) 1.78, Nucleated RBC % 0, PT 20.5 H, INR 1.8, Sodium 140, Potassium 3.8, Chloride 110 H, Carbon Dioxide 25.0, Anion Gap 5, BUN 10, Creatinine 0.80, Estim Creat Clear Calc 83.33, Est GFR (MDRD) Af Amer 98, Est GFR (MDRD) Non-Af 81, BUN/Creatinine Ratio 12.5, Glucose 95, Calcium 8.1 L, Total Bilirubin 1.30 H, Direct Bilirubin 0.69 H, AST 59 H, ALT 40, Alkaline Phosphatase 137 H, Total Protein 6.8, Albumin 2.3 L, Globulin 4.5 H 12/07/23 07:10: WBC 5.3, RBC 3.45 L, Hgb 8.4 L, Hct 27.9 L, MCV 80.9 L, MCH 24.3 L, MCHC 30.1 L, RDW Std Deviation 75.2 H, RDW Coeff of Katalina 25.8 H, Plt Count 59 L, Immature Gran % (Auto) 0.400, Neut % (Auto) 47.4, Lymph % (Auto) 34.6, [place] % (Auto) 12.2 H, Eos % (Auto) 4.6, Baso % (Auto) 0.8, Absolute Neuts (auto) 2.5, Absolute Lymphs (auto) 1.82, Nucleated RBC % 0
[2023-12-07 07:59] VITALS: PULSE 75; RESP 16; O2SAT 98
[2023-12-07 08:19] LABS: AST(SGOT) 53 U/L (15-37); Alanine Aminotransfer ALT/SGPT 36 U/L (13-56); Albumin, Serum 2.2 g/dL (3.2-5.0); Alkaline Phosphatase 123 U/L (45-117); Anion Gap 4 (5-15); BUN 9 mg/dL (7-18); Calcium,Total 7.9 mg/dL (8.5-10.1); Chloride 110 mmol/L (98-107); Creatinine, Serum 0.75 mg/dL (0.55-1.02); EST Glomerular Filtration Rate 87 mL/min (>60); Est Glom Filt Rate - Afr Amer 105 mL/min (>60); Estimated Creatinine Clearance 87.75 ml/min; Globulin 4.5 g/dL (2.2-4.2); Glucose 101 mg/dL (74-106); Potassium 3.7 mmol/L (3.5-5.1); Protein, Total 6.7 g/dL (6.4-8.2); Sodium Level 140 mmol/L (136-145)
[2023-12-07 08:24] VITALS: BP 96/61; PULSE 57; RESP 14; TEMP 36.2; O2SAT 99
[2023-12-07] MEDS: Acetaminophen 325 MG Tablet 650 MG PO ×2 (08:28→15:55)
[2023-12-07] MEDS: Gabapentin 100 MG Capsule PO (08:29)
[2023-12-07] MEDS: oxyCODONE 5 MG Tablet PO (08:29)
[2023-12-07] MEDS: Ferrous Sulfate 325 MG Tablet PO (08:29)
[2023-12-07] MEDS: Furosemide 40 MG Tablet PO (08:30)
[2023-12-07] MEDS: Spironolactone 50 MG Tablet 100 MG PO (08:30)
[2023-12-07] MEDS: Ascorbic Acid 500 MG Tablet PO (08:31)
[2023-12-07 08:34] LABS: Anisocytosis 1+; Hypochromasia 1+
[2023-12-07 08:35] LABS: Platelet Estimate MKD DEC (ADEQ)
[2023-12-07] MEDS: Pantoprazole Sodium 40 MG in 0.9% Normal Saline (100mL MB+) 100 ML 330 MG IV (10:28)
[2023-12-07] MEDS: Midodrine HCl 5 MG Tablet 10 MG PO (10:30)
[2023-12-07 14:30] VITALS: BP 112/68; PULSE 78; RESP 16; TEMP 36.1; O2SAT 99
--- NOTE | 2023-12-07 14:37 | DS.PCM_ITS ---
Providers Date of Admission: 12/04/23 Date of Discharge: 12/07/23 Primary Care Physician: Dr. Ang Acosta MD Consultations 12/05/23 18:08 Consult: Podiatry Routine Consulting Provider: Ricardo Pollack Reason for Consult: RIGHT ingrown toe nal with infection? EMERGENT Consult: No MD Notified: Yes Date Notified: 12/05/23 Time Notified: 18:08 Method of Notification: Text Reason For Visit: DECOMPENSATED CIRRHOSIS, UTI Diagnosis Discharge Diagnosis (1) Iron deficiency anemia: Status: Acute Code(s): D50.9 - Iron deficiency anemia, unspecified Qualifiers: Iron deficiency anemia type: chronic blood loss Qualified Code(s): D50.0 - Iron deficiency anemia secondary to blood loss (chronic) (2) Hepatitis C, chronic: Status: Chronic Code(s): B18.2 - Chronic viral hepatitis C Qualifiers: Hepatic coma status: without hepatic coma Qualified Code(s): B18.2 - Chronic viral hepatitis C (3) Cirrhosis of liver: Status: Acute Code(s): K74.60 - Unspecified cirrhosis of liver Qualifiers: Hepatic cirrhosis type: unspecified hepatic cirrhosis Ascites presence: with ascites Qualified Code(s): K74.60 - Unspecified cirrhosis of liver; R18.8 - Other ascites (4) Chronic pain of toe of right foot: Status: Acute Code(s): M79.674 - Pain in right toe(s); G89.29 - Other chronic pain (5) Tinea unguium: Status: Acute Code(s): B35.1 - Tinea unguium (6) Nail dystrophy: Status: Acute Code(s): L60.3 - Nail dystrophy Plan The patient is a 48 y/o F came to ED with generalized abdominal pain and nausea for the last 2 days. Patient also has dysuria for past several days and was put on Macrobid a week ago by PCP but patient not taking it because of fear that might make her abdominal pain worse. Patient is not adherent with regimen of lactulose she is confused. Denies fever or chills. #1. Worsening ascites with history of chronic decompensated hep C cirrhosis requiring multiple recurrent paracentesis, hepatic encephalopathy, thrombocytopenia and esophageal varices suggestive of portal hypertension: Patient is abdominal discomfort. Patient admitted to PCU. Patient went for paracentesis. Ultrasound called to send the fluid for analysis to calculate SAAG. Chronic thrombocytopenia due to decompensated cirrhosis. She ranges anywhere between 50,000-80,000. Nonadherent to lactulose. Continue IV ceftriaxone. Patient had 3200 mL clear fluid drained. 25 g IV alb umin ordered. 12/05: Patient is alert and awake. Her abdominal pain has resolved. Paracentesis fluid reviewed. Cell count not consistent with SBP therefore ruled out. Fluid culture Gram stain no organism. Patient does not need antibiotic. 12/05 about 4 PM: Complain of abdominal pain discharge is canceled because of abdominal pain. Seems mainly from stomach distention. Bentyl ordered. Diet changed to soft bite sized easily chewable food. 12/06: Patient complained of abdominal pain in the morning and was given Bentyl 10 mg, advised half an hour before meal. Patient got relief with the oxycodone. Started on pantoprazole 40 mg twice daily and prescription was given for Bentyl, pantoprazole. Prescription also given for midodrine 10 mg 3 times daily and to hold if SBP more than 110 mmHg. Follow-up in GI clinic. #2. Abnormal UA, UTI ruled out.: UA upon ED evaluation remarkable for nitrite and LE +500. WBC 25-50 cells, Urine culture pending. Empirically patient started on IV ceftriaxone. 12/05: Urine culture no growth. UTI ruled out. Does not need antibiotic. #3. Chronic COPD: Will hold all home inhalers in the interim placed on ATC budesonide therapy, PRN albuterol, HOB, IS parameters. #4. Incidental nonobstructive right renal stones: CT abdomen pelvis with nono bstructive right renal stones measuring up to 10 mm. #5. History of polysubstance abuse: Patient with prior history of IV drug abuse with last usage approximately 7 years prior to current presentation with previous heroin, methamphetamine, cannabis usage, UDS requested. = #6. Anxiety and depression: Per current list on a regimen, clarifying as patient in the past had been on a significant regimen including duloxetine, desvenlafaxine, aripiprazole home regimen. Given patient's significant d ispleasure with her ongoing health issues would be imperative to potentially restart medications as well as outpatient counseling. Case management consulted. #7. Chronic normocytic anemia/iron deficiency anemia: Admission hemoglobin 8.9, MCV 82.1, Baseline hemoglobin runs between 9 to 10 g. #8. Other multiple comorbidities include obesity grade 3 mainly fluid weight, GERD, obstructive sleep apnea on CPAP and chronic tobacco use/smoking. Patient had left toe ingrown nail and fungal infection. Podiatry consult requested. Patient can go home to see the bowling ball engraver. CODE status: Patient does not have healthcare power of workers compensation defense attorney nor living will. Full Code status. Discharge medication reconciliation done. Discharge follow-up instructions completed. Discharge process discussed with the patient and all questions were answered to patient's satisfaction. Follow with PCP in 1 to 2 weeks Total time spent, exact 35 minutes on discharge meds reconciliation, examination, coordination of care with nurses and ancillary staff, review of imaging and blood test and discussion with the patient on follow-up instructions. Medications at Discharge Home Medications Vitamin D3 1,250 mcg OTHER QWEEK SUPPLEMENT 05/20/22 gabapentin 100 mg capsule 100 mg PO Q12H 07/20/23 lactulose 20 gram/30 mL oral solution 20 g (30 mL) PO TID 30 days #2,880 mL 10/07/23 albuterol sulfate 90 mcg/actuation aerosol inhaler (Ventolin HFA) 2 puff inhalation Q4H PRN PRN shortness of breath or wheezing 12/04/23 ascorbate calcium (vitamin C) 500 mg tablet 500 mg PO DAILY 12/04/23 ferrous sulfate 325 mg (65 mg iron) tablet (FeroSul) 325 mg PO DAILY 12/04/23 furosemide 40 mg tablet 40 mg PO DAILY 1 month #30 tabs 12/06/23 spironolactone 100 mg tablet 100 mg PO DAILY 1 month #30 tabs 12/06/23 spironolactone 50 mg tablet 30 mg (0.6 x 50 mg) PO DAILY #45 tabs 12/06/23 dicyclomine 10 mg capsule 10 mg PO 0730,1130,1630,2200 PRN abdominal cramps 30 days #120 caps 12/07/23 midodrine 10 mg tablet 10 mg PO TID 1 month #90 tabs 12/07/23 nicotine 21 mg/24 hr daily transdermal patch 21 mg transdermal DAILY 28 days #28 ea 12/07/23 pantoprazole 40 mg tablet,delayed release (Protonix) 40 mg PO BID 1 month #60 tabs 12/07/23 Physical Exam Narrative Seen and examined. Patient again complained of abdominal pain mainly upper after eating food. Since patient might have pain from stomach stretch/distention. Discharge canceled. Bentyl ordered. Patient crying. She had paracentesis yesterday. Physical exam General: Alert, Oriented x3, Cooperative, obesity grade 2 BMI 33.5 kg/m? HEENT: Atraumatic, PERRLA, EOMI, Normocephalic Oral: No Gingival or Mucosal Lesions/ Ulcerations Neck: Supple, No JVD, Negative Carotid Bruits Chest wall/Lungs: Air entry diminished in bilateral lung bases. No crepitation/rhonchi Cardiovascular: Regular rate, Regular Rhythm, Normal S1, Normal S2, No M/G/R Abdomen: Bowel Sounds Present, mild abdominal distention. Still has mild ascites. Abdomen is soft. No significant tenderness/rebound tenderness. : No dysuria. No renal angle tenderness. No suprapubic tenderness. Extremities: No edema, Capillary Refill Less than 3 Seconds Skin: No rashes, No breakdown Musculoskeletal: Ingrown toenail. No Tenderness to Palpation of Joints or Extremities Neurological: Cranial nerves II-XII grossly intact, DTR 2+/4. No acute focal neurological deficit. Psych/Mental Status: Flat affect. Weight / BMI Weight Weight: 175 lb 11.335 oz Body Mass Index (BMI) 32.1 ABG / Lab / Microbiology Data 12/07/23 07:10 12/07/23 07:10 Laboratory: Laboratory Results - last 24 hr 12/05/23 08:50: Fluid Albumin 0.7, Fluid Amylase 13 12/07/23 07:10: WBC 5.3, RBC 3.45 L, Hgb 8.4 L, Hct 27.9 L, MCV 80.9 L, MCH 24.3 L, MCHC 30.1 L, RDW Std Deviation 75.2 H, RDW Coeff of Katalina 25.8 H, Plt Count 59 L, Immature Gran % (Auto) 0.400, Neut % (Auto) 47.4, Lymph % (Auto) 34.6, [place] % (Auto) 12.2 H, Eos % (Auto) 4.6, Baso % (Auto) 0.8, Absolute Neuts (auto) 2.5, Absolute Lymphs (auto) 1.82, Nucleated RBC % 0, Platelet Estimate MKD DEC, Hypochromasia 1+, Anisocytosis 1+, Sodium 140, Potassium 3.7, Chloride 110 H, Carbon Dioxide 26.0, Anion Gap 4 L, BUN 9, Creatinine 0.75, Estim Creat Clear Calc 87.75, Est GFR (MDRD) Af Amer 105, Est GFR (MDRD) Non-Af 87, BUN/Creatinine Ratio 12.0, Glucose 101, Calcium 7.9 L, Total Bilirubin 1.30 H, Direct Bilirubin 0.70 H, AST 53 H, ALT 36, Alkaline Phosphatase 123 H, Total Protein 6.7, Albumin 2.2 L, Globulin 4.5 H Microbiology: Microbiology 12/05/23 Unknown Fluid - Ascites Gram Stain - Final 12/05/23 Unknown Fluid - Ascites Anaerobic Culture - Preliminary No growth in 48 hours. D/C Instructions Discharge Diet: Soft diet (Low residue with no fatty or oily food), Low fat / Low cholesterol and 8 Cup Fluid Restriction Weight Bearing Status: Weight bearing as tolerated Call your doctor if you observe: Fever of 101 or Higher, Coldness, Increased Pain, Numbness or Tingling, Change in Color, Inability to urinate, Inability to have a bowel movement, Using more than 1 pad per hour, Shortness of breath, Dizziness, Fainting spells, Swelling in the ankles, Chest pain, Prolonged hiccupping, Increased palpitations (irregular heartbeat) and Calf discomfort When: IN 2 WEEKS Meaningful Use Info Meaningful Use Diagnoses (Choose all that apply): None applicable Discharge Plan Admission Admit Date/Time: 12/04/23 20:34 Primary Reason for Your Visit: Decompensated cirrhosis with ascites. SBP ruled out. Attending Provider: Son Adams Primary Care Provider: Ang Acosta Consulting Providers: Sowmya Mirza; Ricardo Pollack Instructions Additional Instructions / Restrictions: Advised [id number] probiotic 1 tablet twice daily. Small frequent diet with low residue. Discharge Orders/Prescriptions Prescriptions: New furosemide 40 mg tablet 40 mg PO DAILY 30 Days Qty: 30 3RF spironolactone 100 mg tablet 100 mg PO DAILY 30 Days Qty: 30 3RF Rx Instructions: Hold if serum potassium more than 5.0. nicotine 21 mg/24 hr Patch 24 Hour 21 mg transdermal DAILY 28 Days Qty: 28 0RF dicyclomine 10 mg Capsule 10 mg PO 0730,1130,1630,2200 PRN (Reason: abdominal cramps) 30 Days Qty: 120 2RF pantoprazole [Protonix] 40 mg tablet,delayed release (DR/EC) 40 mg PO BID 30 Days Qty: 60 1RF midodrine 10 mg tablet 10 mg PO TID 30 Days Qty: 90 2RF Rx Instructions: do not give last dose of day after 6PM or within 4 hrs of bedtime Hold if SBP more than 110 mmHg Continued Vitamin D3 1,250 mcg OTHER QWEEK Rx Instructions: TAKES ON MODAY BY MOUTH lactulose 20 gram/30 mL solution 20 g PO TID 30 Days Qty: 2880 2RF Rx Instructions: And adjust the frequency to have him goal of 3 bowel movements per day gabapentin 100 mg capsule 100 mg PO Q12H Patient Comments: Take 1 capsule by mouth twice daily pt taking as needed. albuterol sulfate [Ventolin HFA] 90 mcg/actuation HFA aerosol inhaler 2 puff inhalation Q4H PRN PRN (Reason: shortness of breath or wheezing) ferrous sulfate [FeroSul] 325 mg (65 mg iron) tablet 325 mg PO DAILY ascorbate calcium (vitamin C) 500 mg tablet 500 mg PO DAILY Changed spironolactone 50 mg tablet 30 mg PO DAILY Qty: 45 2RF Discontinued furosemide [Lasix] 20 mg tablet 20 mg PO DAILY Qty: 90 0RF Referrals / Follow Up: Renae Ludwig [Other] - 04/11/24 8:00 am Ang Acosta MD [Primary Care Provider] - 12/08/23 11:00 am (appointment is with Alba Lowe N.P. Please arrive by 10:45.) Ricardo Pollack DPM [Med Staff - Active Staff] - 12/14/23 10:30 am (Bring insurance info to appointment and paperwork from Dr. Pollack office.) Son Adams MD [Med Staff - Active Staff] - Within 1 Month Disposition Disposition (needs filled in before D/C Order can be placed): Home, Self Care Charges/Coding Visit Charges Inpatient E&M: 32463 Disch Hosp >30min
--- NOTE | 2023-12-07 15:55 | CASEMGMT ---
Addendum entered by Kortney Tatum 12/07/23 17:13: Call received from pt's sister, Yessenia, voicing concerns. She states she heard that pt was being told she had to walk home and that she should not have to walk home w/her medical conditions. NASH SOUZA reassured her that pt was not being told that she needed to walk home, and in-fact, staff has been working on trying to find transportation for her. Yessenia also states pt just informed her that pt does not have electricity in the home, that pt is a fall risk, and that pt does not have anyone in the home to help her w/her care needs. NASH SOUZA back to pt's room. She states she actually did not get a hold of her daughter re: a ride home and gave this RN CM permission to call her daughter, Vannesa. Call placed to Vannesa who states she is available to take pt home and will head to the hospital now. Pt made aware and voices appreciation. NASH SOUZA spoke w/pt about Yessenia's above concerns. Pt states she has been up ambulating in her room without difficulty and w/out any DME and that she feels safe to be up and around on her own, and states, I can take care of myself. She states re: electricity, that the home she and her BF live in is not their home and that the people who pay the bills did not tell them that the electricity was going to get turned off. Pt gave this RN LIBBY permission to call her BF to discuss the electricity. Call placed to Osmin, who states he has the $ to pay the electric bill today and he is on his way to the house to talk to the person who the electric bill is under so that it can get paid today. He states he is not sure if it will be able to be turned on today or tomorrow, but he states the house stays pretty warm and he is not concerned about it getting too cold tonight. Pt also told this RN LIBBY the same thing, stating she has no concerns w/going home tonight even if the electricity does not get turned back on and feels safe to discharge home this evening. Pt gave NASH SOUZA permission to call her sister, Yessenia, back to inform her of all of the above. Call placed to Yessenia [phone]), while NASH SOUZA in room w/pt and she was updated that pt has a ride, updated re: electricity, and that pt has been up ad cyn and feels safe to care for herself. Yessenia voices appreciation of all of the information and feels better about pt being discharged and going home. Pt has an appt w/her PCP, Dr Acosta tomorrow AM and is aware. Diane LARKIN RN, CM Addendum entered by Kortney Tatum 12/07/23 16:22: Pt states her daughter is not available to take her home. She was made aware taxi services are booked for the night, per converting supervisor. Pt states she does not have anyone else that can take her home. RNAilyn, made aware. Some of pt's Rx's have been e-scribed to [facility] retail pharmacy and furosemide and spironolactone (100 mg and 30 mg) have been e-scribed to [facility]. Per Argenis, charge aide, she clarified with Dr Adams that pt only to take the Spironolactone 100 mg, not the 30 mg. Pt states she does not have a ride to [facility] to get her Rx's and would like to get them all from [facility] retail. Call to Shahram in [facility] retail pharmacy. She was made aware furosemide 40 mg and Spironolactone 100 mg to be tx'd to [facility] retail pharmacy and to be delivered to pt's room along w/the other Rx's ready for pt. She was also made aware the Spironolactone 30 mg order is to be discontinued per Dr Adams. Original Note: NASH SOUZA NOTE: Discharge order is in. NASH SOUZA to room. Introduced self and role. Pt states is not sure if she has a ride home or not, but states will call her daughter and check w/her. She was instructed to let RN know if she does not have a ride, as a taxi voucher may be able to be provided. She voices understanding. Diane LARKIN RN, CM
[2023-12-08 08:53] LABS: Pathologist Comment/Body Fluid Reviewed
== END 2023-12-07 17:48 | disposition home or self-care (01) | DRG 280 ==
LOC: ED 17:39 → PCU 20:59
PROVIDERS: Physician Assistant; Admitting Provider Family Medicine; Emergency Provider Emergency Medicine; PCP Family Medicine; Visit Provider Internal Medicine
DX: K70.31 Alcoholic cirrhosis of liver with ascites (principal); K76.6 Portal hypertension; I85.00 Esophageal varices without bleeding; K76.82 Hepatic encephalopathy; J44.9 Chronic obstructive pulmonary disease, unspecified; K70.11 Alcoholic hepatitis with ascites; B18.2 Chronic viral hepatitis C; F10.10 Alcohol abuse, uncomplicated; B35.1 Tinea unguium; G47.33 Obstructive sleep apnea (adult) (pediatric); D50.9 Iron deficiency anemia, unspecified; K21.9 Gastro-esophageal reflux disease without esophagitis; F17.210 Nicotine dependence, cigarettes, uncomplicated; L60.0 Ingrowing nail; M79.674 Pain in right toe(s); E66.9 Obesity, unspecified; N20.0 Calculus of kidney; Z68.33 Body mass index [BMI] 33.0-33.9, adult; G89.29 Other chronic pain; R42 Dizziness and giddiness; R82.90 Unspecified abnormal findings in urine
CPT/HCPCS: 36415; 49083; 74177; 80048; 80053; 80076; 80307; 81001; 82042; 82140; 82150; 82945; 83690; 83735; 84100; 85025; 85610; 87070; 87075; 87205; 88108; 88305; 88313; 89050; 94640; 94668; 96365; 96366; 96367; 96375; 96376; 97802; 99221; 99285; 99406; J7030; P9047; Q9967; A4216; G0378

== ENCOUNTER 2023-12-09 18:49 | Emergency (ER) | payer MEDICAID, SELFPAY ==
[2023-12-09 18:49] VITALS: BP 132/100; PULSE 72; RESP 18; TEMP 36.3; O2SAT 100
[2023-12-09 20:42] VITALS: BMI 33.0
[2023-12-09] MEDS: Morphine 4 MG/ML Syringe IV (21:10)
[2023-12-09] MEDS: Ondansetron 4 MG/2 ML Vial IV (21:10)
[2023-12-09 21:12] VITALS: BP 131/81; PULSE 80; RESP 14; O2SAT 100
[2023-12-09 21:31] LABS: Absolute Lymphocyte Count 1.56 X10^3/uL (0.83-4.51); Absolute Neutrophil Count 4.7 X10^3/uL (2.0-7.7); Basophil# 0.07 X10^3/uL; Eosinophil# 0.14 X10^3/uL; Eosinophils% 1.9 % (0-5); Hematocrit 29.8 % (37-47); Hemoglobin 8.9 g/dL (12.0-15.0); Lymphocyte # 1.56 X10^3/ul (0.83-4.51); Lymphocyte % 21.5 % (19-41); Mean Corp Hgb Conc 29.9 g/dL (32-36); Mean Corpuscular Hgb 24.5 pg (27.0-32.0); Mean Corpuscular Volume 81.9 fL (81-99); Monocyte# 0.78 X10^3/uL; Monocyte% 10.8 % (0-10); NRBC Flagged by Analyzer 0 % (0-5); Neutrophil # 4.68 X10^3/uL (2.7-7.7); Neutrophil % 64.5 % (47-70); POSITIVE COUNT YES; POSITIVE MORPHOLOGY YES; Platelet Count 69 K/mm3 (150-450); RBC Distribution Width CV 25.8 % (11.6-14.6); RBC Distribution Width SD 75.5 fl (35.1-43.9); Red Blood Count 3.64 M/mm3 (4.2-5.4); White Blood Count 7.3 K/mm3 (4.4-11.0)
--- NOTE | 2023-12-09 21:31 | EDS_ITS ---
HPI <CONCHIS Robles - Last Filed: 12/09/23 22:47> History of Present Illness Chief Complaint: Abd Pain Narrative Narrative: Patient is a 48-year-old female who presents to the emergency department with complaints of abdominal pain after eating a fish sandwich at approximately 6 PM. Patient has a medical history of hepatitis C, ascites, chronic abdominal pain, history of hepatic encephalopathy, patient states that she has not taken her lactulose in last 2 days because she does not have it because she forgot it somewhere. Patient states after eating fish damage, she developed severe pain to her lower abdomen. She states that she felt nauseous however had no vomiting. She states she still drinks seldom however is not drinking tonight. Patient denies any fever or chills, patient denies any blood in stool or vomit. PFSH <CONCHIS Robles - Last Filed: 12/09/23 22:47> PFSH Medical History Alcohol abuse Anemia Anxiety and depression Chronic pain Cirrhosis of liver COPD (chronic obstructive pulmonary disease) Gastric reflux GERD (gastroesophageal reflux disease) Hepatitis History of diverticulitis History of renal disease Hyperbilirubinemia Kidney stones Low iron Marijuana use Migraine headache MRSA infection Obesity Open wound Polysubstance abuse Restless legs Seizures Sleep apnea Smoker Substance abuse Thrombocytopenia Tobacco use Home Medications Vitamin D3 1,250 mcg OTHER QWEEK SUPPLEMENT 05/20/22 [History Last Taken Unknown] gabapentin 100 mg capsule 100 mg PO Q12H nerve pain 07/20/23 [History Last Taken Unknown] lactulose 20 gram/30 mL oral solution 20 g (30 mL) PO TID liver 30 days #2,880 mL 10/07/23 [Rx Last Taken Unknown] albuterol sulfate 90 mcg/actuation aerosol inhaler (Ventolin HFA) 2 puff inhalation Q4H PRN PRN shortness of breath or wheezing 12/04/23 [History Last Taken Unknown] ascorbate calcium (vitamin C) 500 mg tablet 500 mg PO DAILY vitamin 12/04/23 [History Last Taken Unknown] ferrous sulfate 325 mg (65 mg iron) tablet (FeroSul) 325 mg PO DAILY supplement 12/04/23 [History Last Taken Unknown] furosemide 40 mg tablet 40 mg PO DAILY 1 month #30 tabs 12/06/23 [Rx Last Taken Unknown] spironolactone 100 mg tablet 100 mg PO DAILY 1 month #30 tabs 12/06/23 [Rx Last Taken Unknown] spironolactone 50 mg tablet 30 mg (0.6 x 50 mg) PO DAILY #45 tabs 12/06/23 [Rx Last Taken Unknown] dicyclomine 10 mg capsule 10 mg PO 0730,1130,1630,2200 PRN abdominal cramps 30 days #120 caps 12/07/23 [Rx Last Taken Unknown] midodrine 10 mg tablet 10 mg PO TID 1 month #90 tabs 12/07/23 [Rx Last Taken Unknown] nicotine 21 mg/24 hr daily transdermal patch 21 mg transdermal DAILY 28 days #28 ea 12/07/23 [Rx Last Taken Unknown] pantoprazole 40 mg tablet,delayed release (Protonix) 40 mg PO BID 1 month #60 tabs 12/07/23 [Rx Last Taken Unknown] Allergy/AdvReac Type Severity Reaction Status Date / Time bupropion HCl Allergy SEIZURES Verified 12/09/23 18:52 [From Wellbutrin] codeine Allergy Rash Verified 12/09/23 18:52 Family History Mother Diabetes Father Cancer HX Throat CA. 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, marijuana, heroin and methamphetamine seatbelt use: always do you feel safe at home: Yes ROS <CONCHIS Robles - Last Filed: 12/09/23 22:47> ROS ED ROS Narrative Constitutional: Negative for fever, chills, weight loss, weakness Eyes: Negative for vision loss, vision change, double vision ENT: Negative for any sore throat, ear pain, congestion Cardiovascular: Negative for any chest pain, tightness, palpitations Respiratory: Negative for any cough, sputum production, hemoptysis, dyspnea, dyspnea on exertion, orthopnea Gastrointestinal: Negative for any vomiting, diarrhea, constipation, blood in stool, blood in vomit. Positive for abdominal pain : Negative for any urinary frequency, dysuria, retention, blood in urine Muscle skeletal: Negative for any neck pain, back pain Neurological: Negative for any headache, syncope, dizziness Skin: Negative for any rashes, itching, abrasions, lacerations Psychiatric: Negative for any depression, anxiety, stress, suicidal ideation, homicidal ideation Hematologic: Negative for any excessive bruising, easy bleeding EXAM <CONCHIS Robles - Last Filed: 12/09/23 22:47> Physical Exam Narrative Exam Narrative: Vital signs reviewed. Patient is alert and orient x 4. HEET: Head normocephalic atraumatic, TMs clear bilaterally. Posterior pharynx is clear, moist mucous membranes. Nares clear bilaterally. Neck: Supple with no lymphadenopathy or tenderness. No signs of meningismus. Cardiac: Regular rate and rhythm no murmurs gallops or rubs, equal peripheral pulses bilaterally. Respiratory: Lungs clear to auscultation bilaterally. No chest tenderness. Abdomen: Patient abdomen does appear slightly distended however patient has positive fluid wave, no pain on palpation, no peritoneal signs. No abdominal bruit or pulsatile masses. No hepatosplenomegaly Extremities: No peripheral edema, no signs of gross trauma or deformity. Active full range of motion of all extremities. Neuro: Cranial nerves II through XII intact, no focal neurological deficits. Skin: Clean dry and intact with no rash, purpura, petechiae, vesicles or pustules. Backs/flank: No CVA tenderness, no midline spinal tenderness, no deformity. Psych: Normal mood and affect. No SI, HI or acute psychosis. Const Vital Signs: 12/09/23 18:49 12/09/23 21:12 12/09/23 22:08 Temperature 97.4 F L Temperature Source Temporal Pulse Rate 72 80 77 Respiratory Rate 18 14 16 Blood Pressure 132/100 H 131/81 H 112/73 Blood Pressure Mean 110 97 86 Pulse Ox 100 100 100 Oxygen Delivery Method Room Air Room Air Room Air <Dr. Shon Quintero MD - Last Filed: 12/09/23 23:32> Physical Exam Const Vital Signs: 12/09/23 18:49 12/09/23 21:12 12/09/23 22:08 Temperature 97.4 F L Temperature Source Temporal Pulse Rate 72 80 77 Respiratory Rate 18 14 16 Blood Pressure 132/100 H 131/81 H 112/73 Blood Pressure Mean 110 97 86 Pulse Ox 100 100 100 Oxygen Delivery Method Room Air Room Air Room Air [facility] <Geoff CordovaCONCHIS - Last Filed: 12/09/23 22:47> [facility] Lab Data Labs: Laboratory Results - last 24 hr 12/09/23 12/09/23 12/09/23 20:45 21:09 23:00 WBC 7.3 RBC 3.64 L Hgb 8.9 L Hct 29.8 L MCV 81.9 MCH 24.5 L MCHC 29.9 L RDW Std Deviation 75.5 H RDW Coeff of Katalina 25.8 H Plt Count 69 L MPV TNP Immature Gran % (Auto) 0.300 Neut % (Auto) 64.5 Lymph % (Auto) 21.5 [place] % (Auto) 10.8 H Eos % (Auto) 1.9 Baso % (Auto) 1.0 Absolute Neuts (auto) 4.7 Absolute Lymphs (auto) 1.56 Nucleated RBC % 0 Platelet Estimate MOD DEC RBC Morphology N CHROM Anisocytosis 1+ Microcytosis 1+ Ovalocytes RARE PT 19.2 H INR 1.6 Sodium 139 Potassium 3.7 Chloride 112 H Carbon Dioxide 23.0 Anion Gap 4 L BUN 10 Creatinine 0.89 Estim Creat Clear Calc 75.00 Est GFR (MDRD) Af Amer 86 Est GFR (MDRD) Non-Af 71 BUN/Creatinine Ratio 11.2 Glucose 108 H Calcium 8.8 Total Bilirubin 1.70 H Direct Bilirubin 0.85 H AST 73 H ALT 45 Alkaline Phosphatase 148 H Ammonia 29.0 Total Protein 8.0 Albumin 2.7 L Globulin 5.3 H Albumin/Globulin Ratio 0.5 L Lipase 58 Serum , Qual NEGATIVE Urine Color Yellow Urine Clarity Clear Urine pH 6.5 Ur Specific [place] 1.020 Urine Protein 30 H Urine Glucose (UA) Normal Urine Ketones 5 H Urine Occult Blood 150 H Urine Nitrite Positive H Urine Bilirubin 1 H Urine Urobilinogen 4 H Ur Leukocyte Esterase 100 H Urine RBC 0 SEEN Urine WBC 10-25 SEEN Ur Squamous Epith Cells 0-5 SEEN Urine Bacteria 1+ Urine Mucus 2+ Treatment and Re-Evaluation :: Differential diagnosis includes however is not limited to: Hepatic encephalopathy, acute on chronic abdominal pain, bowel obstruction, ascites, spontaneous bacterial peritonitis. Patient appears alert, patient appears nontoxic, vital signs are stable. Patient presents to the emergency department with complaints of abdominal pain after eating a fish sandwich. Patient was recently discharged 2 days ago. Patient was admitted on December 04, 2023, she had a paracentesis at that time with 3200 cc out. Patient states that her abdomen never felt better since she is left. Patient denies any nausea or vomiting. Patient received some basic laboratory values including liver panel, PT/INR, ammonia level. Patient be given IV morphine, IV Zofran. Patient be reevaluated. Patient's CBC was unremarkable, baseline, patient's hemoglobin 8.9, this is baseline for the patient. Patient's PT/INR was baseline with a PT of 19.2, INR 1.6, this is decreased since 12/06/2023. Patient's chemistries show normal renal function, glucose 108. Total bilirubin is 1.7, direct bilirubin 0.85, alkaline phosphatase is 148. Patient is not . On reevaluation, patient still complaining of pain. Patient will be Patient received a full abdominal x-ray series. <Dr. Shon Quintero MD - Last Filed: 12/09/23 23:32> [facility] MDM Narrative Medical decision making narrative: I have personally performed a face to face assessment of the patient and have reviewed the CAMILLE Note. I performed a substantive portion of the visit including all aspects of the following. My lopez findings include: History is remarkable for acute on chronic abdominal pain. She was recently admitted to the hospital. She had a paracentesis that was unremarkable. Patient's ascites w Exam is remarkable for abdominal tenderness. She does have slight tympany. There is no shifting dullness to percussion or fluid wave appreciated. Patient does not have guarding. Lungs are clear to auscultation. Breath sounds are symmetric. Heart is regular. Rate is normal. There is no murmur, gallop or rub. Patient has no CVA tenderness. Medical Decision Making differential diagnosis would be abdominal pain of unknown etiology, doubt spontaneous bacterial peritonitis. This could represent an ileus. This is may be an atypical presentation for early bowel obstruction. Blood work was obtained. Blood work revealed chronic anemia and actually her hemoglobin is higher than normal. Lipase is normal. test was negative. Total bili is slightly elevated. Abdominal series is pending. Other additions or changes: I did review the history documented by nurse practitioner. Agree this occurred shortly after patient had a meat sandwich. Patient was informed that the cause of her pain is unknown. She was instructed to follow-up with her doctor. History & Record Review Additional record(s) reviewed:: Prior inpatient record (Most recent records were reviewed. She was admitted for hepatic encephalopathy and hepatic cirrhosis. She underwent paracentesis. Patient also has history of polysubstance abuse.), Prior ED visit and Prior labs Lab Data Attestation: I reviewed the patient's lab results. Lab results narrative: Patient has chronic anemia. H&H is 8.9 and 29.8. Cells are microcytic. There is oversights as well. INR and PTT are normal. Ammonia levels normal. Liver enzymes reveal slight elevation of AST at 73. Total bili is 1.7. Lipase is normal. test is normal. Labs: Laboratory Results - last 24 hr 12/09/23 12/09/23 12/09/23 20:45 21:09 23:00 WBC 7.3 RBC 3.64 L Hgb 8.9 L Hct 29.8 L MCV 81.9 MCH 24.5 L MCHC 29.9 L RDW Std Deviation 75.5 H RDW Coeff of Katalina 25.8 H Plt Count 69 L MPV TNP Immature Gran % (Auto) 0.300 Neut % (Auto) 64.5 Lymph % (Auto) 21.5 [place] % (Auto) 10.8 H Eos % (Auto) 1.9 Baso % (Auto) 1.0 Absolute Neuts (auto) 4.7 Absolute Lymphs (auto) 1.56 Nucleated RBC % 0 Platelet Estimate MOD DEC RBC Morphology N CHROM Anisocytosis 1+ Microcytosis 1+ Ovalocytes RARE PT 19.2 H INR 1.6 Sodium 139 Potassium 3.7 Chloride 112 H Carbon Dioxide 23.0 Anion Gap 4 L BUN 10 Creatinine 0.89 Estim Creat Clear Calc 75.00 Est GFR (MDRD) Af Amer 86 Est GFR (MDRD) Non-Af 71 BUN/Creatinine Ratio 11.2 Glucose 108 H Calcium 8.8 Total Bilirubin 1.70 H Direct Bilirubin 0.85 H AST 73 H ALT 45 Alkaline Phosphatase 148 H Ammonia 29.0 Total Protein 8.0 Albumin 2.7 L Globulin 5.3 H Albumin/Globulin Ratio 0.5 L Lipase 58 Serum , Qual NEGATIVE Urine Color Yellow Urine Clarity Clear Urine pH 6.5 Ur Specific [place] 1.020 Urine Protein 30 H Urine Glucose (UA) Normal Urine Ketones 5 H Urine Occult Blood 150 H Urine Nitrite Positive H Urine Bilirubin 1 H Urine Urobilinogen 4 H Ur Leukocyte Esterase 100 H Urine RBC 0 SEEN Urine WBC 10-25 SEEN Ur Squamous Epith Cells 0-5 SEEN Urine Bacteria 1+ Urine Mucus 2+ Radiography Chest X-Ray - ED: Read by ED Physician (Three-view abdominal series reveals no acute pathology. Cardiac silhouette size normal. Lung parenchyma normal. Hilum is normal. Osseous structures are unremarkable. The abdominal portion reveals no evidence of free air, air-fluid levels or dilation of the small or large bowel. The image is ne) Treatment and Re-Evaluation Comments:: In light of normal workup a nonsurgical abdomen with normal abdominal series patient was discharged home with appropriate home-going structures for abdominal pain of unknown etiology. Patient was not treated with pain medicine because of her history of polysubstance abuse. Discharge Plan Triage Chief Complaint: Abd Pain ED Midlevel Provider: Geoff Cordova ED Provider: Shon Quintero Dx/Rx/DC Orders Clinical Impression: Hepatitis C, chronic, Cirrhosis of liver, Abdominal pain in female, Iron deficiency anemia Instructions: ED Abdominal Pain Unkn Cause Fem Prescriptions: No Action Vitamin D3 1,250 mcg OTHER QWEEK Rx Instructions: TAKES ON MODAY BY MOUTH lactulose 20 gram/30 mL solution 20 g PO TID 30 Days Qty: 2880 2RF Patient Comments: HAS NOT BEEN TAKING LACTULOSE AT HOME SINCE BEING DC OTHER THAN 1-2 TIMES Rx Instructions: And adjust the frequency to have him goal of 3 bowel movements per day gabapentin 100 mg capsule 100 mg PO Q12H Patient Comments: Take 1 capsule by mouth twice daily pt taking as needed. albuterol sulfate [Ventolin HFA] 90 mcg/actuation HFA aerosol inhaler 2 puff inhalation Q4H PRN PRN (Reason: shortness of breath or wheezing) ferrous sulfate [FeroSul] 325 mg (65 mg iron) tablet 325 mg PO DAILY ascorbate calcium (vitamin C) 500 mg tablet 500 mg PO DAILY spironolactone 50 mg tablet 30 mg PO DAILY Qty: 45 2RF furosemide 40 mg tablet 40 mg PO DAILY 30 Days Qty: 30 3RF spironolactone 100 mg tablet 100 mg PO DAILY 30 Days Qty: 30 3RF Rx Instructions: Hold if serum potassium more than 5.0. nicotine 21 mg/24 hr Patch 24 Hour 21 mg transdermal DAILY 28 Days Qty: 28 0RF dicyclomine 10 mg Capsule 10 mg PO 0730,1130,1630,2200 PRN (Reason: abdominal cramps) 30 Days Qty: 120 2RF pantoprazole [Protonix] 40 mg tablet,delayed release (DR/EC) 40 mg PO BID 30 Days Qty: 60 1RF midodrine 10 mg tablet 10 mg PO TID 30 Days Qty: 90 2RF Rx Instructions: do not give last dose of day after 6PM or within 4 hrs of bedtime Hold if SBP more than 110 mmHg Primary Care Provider: Ang Acosta Referrals: Ang Acosta MD [Primary Care Provider] - 3-5 Days if not improving Disposition Disposition: Home, Self Care
[2023-12-09 21:39] LABS: Internal QC Validated? YES +Cl - CLEAR BKGD; Pregnancy, Serum, hCG Quali. NEGATIVE Negative
[2023-12-09 21:51] LABS: ALB/GLOB Ratio 0.5 RATIO (0.9-2.4); AST(SGOT) 73 U/L (15-37); Alanine Aminotransfer ALT/SGPT 45 U/L (13-56); Albumin, Serum 2.7 g/dL (3.2-5.0); Alkaline Phosphatase 148 U/L (45-117); Anion Gap 4 (5-15); BUN 10 mg/dL (7-18); BUN/Creat Ratio 11.2 RATIO (10-20); Bilirubin, Direct 0.85 mg/dL (0.00-0.30); Calcium,Total 8.8 mg/dL (8.5-10.1); Chloride 112 mmol/L (98-107); Creatinine, Serum 0.89 mg/dL (0.55-1.02); EST Glomerular Filtration Rate 71 mL/min (>60); Est Glom Filt Rate - Afr Amer 86 mL/min (>60); Globulin 5.3 g/dL (2.2-4.2); Glucose 108 mg/dL (74-106); Lipase 58 U/L (13-75); Potassium 3.7 mmol/L (3.5-5.1); Sodium Level 139 mmol/L (136-145)
[2023-12-09 22:01] LABS: Differential Indicated SCAN CRITERIA MET
[2023-12-09 22:02] LABS: Platelet Estimate MOD DEC (ADEQ); Red Cell Morphology N CHROM NORMAL (NORM C&C)
[2023-12-09 22:03] LABS: Anisocytosis 1+; Microcytosis 1+; Ovalocyte RARE
[2023-12-09 22:08] VITALS: BP 112/73; PULSE 77; RESP 16; O2SAT 100
[2023-12-09 22:17] LABS: International Normalized Ratio 1.6; Prothrombin Time (Protime)PT. 19.2 SECONDS (11.7-14.9)
[2023-12-09 23:05] LABS: Red Blood Cells-Urine 0 SEEN /hpf (0-5)
[2023-12-09 23:09] LABS: Color, Urine Yellow (Yellow); Glucose, Dipstick Normal (Normal); Ketone-Dipstick 5 mg/dl (Negative); Leukocyte Esterase-Dipstick 100 /ul (Negative); Nitrite-Dipstick Positive (Negative); Occult Blood-Urine 150 /ul (Negative); Protein-Dipstick 30 mg/dl (Negative); Urine Clarity Clear (Clear); Urine Urobilinogen 4 mg/dl (Normal); Urine pH 6.5 (5.0 - 8.0)
--- NOTE | 2023-12-09 23:15 | RAD_ITS ---
EXAM: XR ABDOMEN, 2 VIEWS AND XR CHEST, 1 VIEW CLINICAL INDICATION: abdominal pain TECHNIQUE: Frontal view of the chest, frontal view of the abdomen/pelvis and upright or decubitus view of the abdomen. COMPARISON: CT abdomen and pelvis 12/04/2023. FINDINGS: CHEST: LUNGS AND PLEURAL SPACES: Unremarkable. No consolidation or edema. No pneumothorax. No effusion. HEART: Unremarkable. Cardiac silhouette not enlarged. MEDIASTINUM: Central airways and mediastinal contour are unremarkable. ABDOMEN: INTRAPERITONEAL SPACE: No free air. GASTROINTESTINAL TRACT: Unremarkable. Non-obstructive. No bowel or stomach distention. ORGANS: Several calcifications in the location of the right kidney consistent with nephroliths identified on previous exams, measuring up to 7 mm. No organomegaly. TUBES, LINES AND DEVICES: None. BONES/JOINTS: No acute findings. SOFT TISSUES: Tubal ligation clips. RAD/Acute Abdomen Inc Chest IMPRESSION: 1. Several calcifications in the location of the right kidney consistent with nephroliths identified on previous exams, measuring up to 7 mm. 2. No acute abnormalities identified in the abdomen. Electronically Signed: Tejas Valera MD at 23:47 EDT ,
[2023-12-09 23:16] LABS: Urine Bilirubin Dipstick 1 mg/dL (Negative)
[2023-12-09 23:19] LABS: Bacteria 1+ /hpf (None Seen); Mucous, Urine 2+ /hpf (<or=2+); Squamous Epithelial Cells - UA 0-5 SEEN /hpf (5-10); White Blood Cells 10-25 SEEN /hpf (0-5)
[2023-12-09 23:39] VITALS: BP 112/73; PULSE 77; RESP 16; TEMP 36.3; O2SAT 100
== END 2023-12-09 23:44 | disposition home or self-care (01) ==
PROVIDERS: Nurse Practitioner; Emergency Provider Emergency Medicine; PCP Family Medicine; Visit Provider Emergency Medicine
DX: K74.60 Unspecified cirrhosis of liver (principal); J44.9 Chronic obstructive pulmonary disease, unspecified; B18.2 Chronic viral hepatitis C; D50.9 Iron deficiency anemia, unspecified; R10.819 Abdominal tenderness, unspecified site; K21.9 Gastro-esophageal reflux disease without esophagitis; Z79.899 Other long term (current) drug therapy
CPT/HCPCS: 74022; 80053; 81001; 82140; 82248; 83690; 84703; 85025; 85610; 96374; 96375; 99284; J7030; A4216; J2405

== ENCOUNTER 2023-12-28 08:16 | Day surgery (SDC) | payer MEDICAID, SELFPAY ==
--- NOTE | 2023-12-28 08:33 | HP.PCM_ITS ---
History and Physical Date of Admission: 12/28/23 CAROLINA HIGHTOWER, is a 48 F who presented She presented to [facility] ED with increased fatigue, forgetfulness, abdominal distention and confusion. History of HCV with remote history of IV drug use with possible cirrhosis with thrombocytopenia through [facility]. She was admitted for acute HE secondary to decompensated cirrhosis with hyperammonemia treated with lactulose. She has a history of frequent need for paracentesis secondary to refractory ascites. CT abd/pel 5.17.19 abd pain with normal liver without lesions; splenomegaly 15.1cm; renal calculi. Imaging prior to this with normal liver and without splenomegaly. Fib4 1.82 CT abd/pel 9.17.21 pain HCV Hx with moderately cirrhotic liver with volume redistribution to right lobe without ascites; moderate splenomegaly; inflammation of subhepatic space r/t right colon. Fib4 8.76 CT abd/pel 05.19. with cirrhotic liver with prominent caudate lobe and nodular surface without mass; splenomegaly; pancreatic calcification in uncinate process; renal calculi. Resolution of previously noted inflammation. Fib4 11.76 MELD 05.19.22 13?? She denies any no pruritis, jaundice She is having issues with lightheadedness with quick movements causing loss of balance, memory loss and brain fog is a difficulty, sleep pattern is disturbed for many years. She does have a lot of psychiatric diagnoses. Feels like she has been having an increased appetite. Constipation is an issue with BM 1-2 times a week. Lactulose caused nausea and generally feeling unwell. Furosemide stopped because it was causing nocturia. PFSH Medical History Alcohol abuse Anemia Anxiety and depression Chronic pain Cirrhosis of liver COPD (chronic obstructive pulmonary disease) Gastric reflux GERD (gastroesophageal reflux disease) Hepatitis History of diverticulitis History of renal disease Hyperbilirubinemia Kidney stones Low iron Marijuana use Migraine headache MRSA infection Obesity Open wound Polysubstance abuse Restless legs Seizures Sleep apnea Smoker Substance abuse Thrombocytopenia Tobacco use Home Medications Vitamin D3 1,250 mcg OTHER QWEEK SUPPLEMENT 05/20/22 [History Last Taken Unknown] gabapentin 100 mg capsule 100 mg PO Q12H 07/20/23 [History Last Taken Unknown] furosemide 20 mg tablet (Lasix) 20 mg PO DAILY #90 tabs 10/07/23 [Rx Last Taken 11/09/23] lactulose 20 gram/30 mL oral solution 20 g (30 mL) PO TID 30 days #2,880 mL 10/07/23 [Rx Last Taken Unknown] spironolactone 50 mg tablet 75 mg (1.5 x 50 mg) PO DAILY #45 tabs 11/05/23 [Rx Last Taken Unknown] albuterol sulfate 90 mcg/actuation aerosol inhaler (Ventolin HFA) 2 puff inhalation Q4H PRN PRN shortness of breath or wheezing 12/04/23 [History Last Taken Unknown] ascorbate calcium (vitamin C) 500 mg tablet 500 mg PO DAILY 12/04/23 [History Last Taken Unknown] ferrous sulfate 325 mg (65 mg iron) tablet (FeroSul) 325 mg PO DAILY 12/04/23 [History Last Taken Unknown] Allergy/AdvReac Type Severity Reaction Status Date / Time bupropion HCl Allergy SEIZURES Verified 12/04/23 16:48 [From Wellbutrin] codeine Allergy Rash Verified 12/04/23 16:48 Family History Mother DiabetesFather Cancer HX Throat CA. Surgical History H/O tubal ligation History of liver biopsy Social History (Updated 12/04/23 @ 21:[address] Sowyma Mirza MD) adopted: No household members: family housing: other number of children: 3 current occupational status: unemployed pets and animals: Yes history of recent travel: No sexually active: Yes Smoking Status: Current every day smoker tobacco type: cigarettes Smoking packs per day: 1 Smoking cigarettes per day: 20.0 second hand exposure: Yes alcohol intake: current alcohol intake frequency: a few times a month substance use type: former substance user Date of last use: heroin, marijuana, heroin and methamphetamine seatbelt use: always do you feel safe at home: Yes ROS ROS Narrative Admission Review of Systems: CONSTITUTIONAL: No weight loss, fever, chills,+ weakness or fatigue. HEENT: Eyes: No visual loss, blurred vision, double vision or yellow sclerae. Ears, Nose, Throat: No hearing loss, sneezing, congestion, runny nose or sore throat. SKIN: No rash or itching, lesions, wounds. CARDIOVASCULAR: No chest pain, chest pressure or chest discomfort, palpitations, edema, orthopnea, syncopal events. RESPIRATORY: No shortness of breath, cough or sputum, wheezing, hemoptysis. GASTROINTESTINAL: + anorexia, nausea, generalized abdominal discomfort, distention with recurrent ascites. No vomiting, diarrhea, melena, BRBPR. GENITOURINARY: + dysuria, frequency. No urgency or retention. NEUROLOGICAL: + Hx seizure with wellbutrin. No headache, dizziness, syncope, paralysis, ataxia, numbness or tingling in the extremities, focal weakness, change in bowel or bladder control, seizure. MUSCULOSKELETAL: + muscle, back pain, joint pain or stiffness. HEMATOLOGIC: + anemia. Easy bleeding and bruising. LYMPHATICS: No enlarged nodes. No history of splenectomy. PSYCHIATRIC: + history of depression and anxiety. ENDOCRINOLOGIC: No reports of sweating, cold or heat intolerance. No polyuria or polydipsia. ALLERGIES: No history of asthma, hives, eczema or rhinitis. Physical Exam Narrative Physical Examination: General: Awake, alert, oriented x 3 and cooperative, laying on her side in the ED, notes ongoing vague discomfort to the abdomen. Skin: Normal color, normal turgor, no icterus, no cyanosis except occasional staged ecchymoses. HEENT: AT/NC, EOMI, PERRLA, mildly dry MM, lack of dentition, no carotid bruits or JVD noted. Lungs: CTA bilaterally, moderate effort, mild decrease BL bases, no rales, ronchi or wheezing. Heart: Regular rate and rhythm; no gallop, rub audible. Abdomen: Soft, mild generalized discomfort but no rebound or guarding, mildly distended but not tense with reaccumulation of ascites noted, mildly hyperactive BS, given ascites reaccumulation difficult to appreciate HM. Extremities: No cyanosis, no clubbing, no marked significant peripheral edema but she has in the past. Neurological: Patient awake, alert, oriented as noted, cognitive function currently baseline intact; pupils equally reactive to light and accommodation, cranial nerves II-XII grossly normal, moving all 4 extremities, no focal deficits, strength mildly to moderately globally decreased secondary to acute complaints. Psychiatric: Affect appears uncomfortable, reports being fed up with her ongoing health issues, does admit to being depressed but denies suicidal ideation. Lab / Micro Data 12/05/23 04:10 12/05/23 04:10 Labs: Laboratory Results - last 24 hr 12/04/23 17:25: WBC 6.1, RBC 3.68 L, Hgb 8.9 L, Hct 30.2 L, MCV 82.1, MCH 24.2 L , MCHC 29.5 L, RDW Std Deviation 79.4 H, RDW Coeff of Katalina 27.1 H, Plt Count 87 L , MPV 9.5, Immature Gran % (Auto) 0.300, Neut % (Auto) 62.4, Lymph % (Auto) 23.3, [place] % (Auto) 10.7 H, Eos % (Auto) 2.3, Baso % (Auto) 1.0, Absolute Neuts (auto) 3.8, Absolute Lymphs (auto) 1.43, Nucleated RBC % 0, Differential Comment SCANNED, Hypochromasia 1+, Anisocytosis 2+, Microcytosis 1+, Macrocytosis 1+, Target Cells RARE, PT 20.0 H, INR 1.7, Sodium 142, Potassium 4.0, Chloride 110 H , Carbon Dioxide 27.0, Anion Gap 5, BUN 10, Creatinine 0.82, Estim Creat Clear Calc 83.21, Est GFR (MDRD) Af Amer 95, Est GFR (MDRD) Non-Af 79, BUN/Creatinine Ratio 12.2, Glucose 117 H, Calcium 8.4 L, Phosphorus 2.3 L, Magnesium 1.6, Total Bilirubin 2.10 H, AST 58 H, ALT 47, Alkaline Phosphatase 143 H, Ammonia 45.0 H, Total Protein 7.3, Albumin 2.2 L, Globulin 5.1 H, Albumin/Globulin Ratio 0.4 L, Lipase 30 12/04/23 17:51: Urine Color Yellow, Urine Clarity Sl. Cloudy, Urine pH 6.5, Ur Specific [place] 1.015, Urine Protein 30 H, Urine Glucose (UA) Normal, Urine Ketones 15 H, Urine Occult Blood 50 H, Urine Nitrite Positive H, Urine Bilirubin 3 H, Urine Urobilinogen 8 H, Ur Leukocyte Esterase 500 H, Urine RBC 5-10 SEEN, Urine WBC 25-50 SEEN, Ur Squamous Epith Cells 0-5 SEEN, Amorphous Sediment 1+ URATE, Urine Bacteria RARE, Urine Mucus 0 SEEN, Urine Opiates Screen NEGATIVE, Urine Methadone Screen NEGATIVE, Ur Barbiturates Screen NEGATIVE, Ur Phencyclidine Scrn NEGATIVE, Ur Amphetamines Screen NEGATIVE, MDMA (Ecstasy) Screen NEGATIVE, U Benzodiazepines Scrn NEGATIVE, Urine Cocaine Screen NEGATIVE, U Cannabinoids Screen POSITIVE H, Ur Drug Screen Comment 12/05/23 04:10: WBC 6.8, RBC 3.38 L, Hgb 8.3 L, Hct 27.6 L, MCV 81.7, MCH 24.6 L , MCHC 30.1 L, RDW Std Deviation 78.3 H, RDW Coeff of Katalina 26.8 H, Plt Count 81 L , MPV 9.7, Immature Gran % (Auto) 0.300, Neut % (Auto) 51.5, Lymph % (Auto) 30.9, [place] % (Auto) 13.5 H, Eos % (Auto) 3.1, Baso % (Auto) 0.7, Absolute Neuts (auto) 3.5, Absolute Lymphs (auto) 2.11, Nucleated RBC % 0, Anisocytosis 3+, Sodium 139, Potassium 3.9, Chloride 110 H, Carbon Dioxide 25.0, Anion Gap 4 L, BUN 11, Creatinine 0.78, Estim Creat Clear Calc 86.28, Est GFR (MDRD) Af Amer 101, Est GFR (MDRD) Non-Af 83, BUN/Creatinine Ratio 14.1, Glucose 89, Calcium 8.3 L, Phosphorus 2.8, Total Bilirubin 1.80 H, AST 57 H, ALT 46, Alkaline Phosphatase 130 H, Ammonia 37.0 H, Total Protein 7.0, Albumin 2.1 L, Globulin 4.9 H, Albumin/Globulin Ratio 0.4 L 12/05/23 : Fluid Source PERICARDIAL FLUID, Fluid Color LT YEL, Fluid Appearance CLEAR, Fluid WBC 0.136, Fluid RBC 101, Fluid Tot Cell Count 0.189 H, Fld Polynuclear WBCs # 0.006, Fld Polynuclear WBCs % 4.4, Fluid Mononuclear WBCs 0.130, Fld Mononuclear WBCs % 95.6, Fluid Lymphocytes 27, Fluid Macrophages 69, Fld Mesothelial Cells 4, Fl Pathologist Comment May follow, Fluid Glucose 95 H, Fluid Comment 2 SEE COMMENT Micro: Microbiology 12/05/23 Unknown Fluid - Ascites Gram Stain - Final Imaging Radiology Impression Abdomen/Pelvis CT 12/04/23 17:14 IMPRESSION: 1. 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 2. Diffuse abdominal ascites. 3. Splenomegaly. 4. Hepatic cirrhosis. 5. Portal hypertension. 6. Nonobstructive right renal stones measuring up to 10 mm. Electronically Signed: Tejas Bhakta MD at 19:07 EDT , Assessment & Plan Assessment/Plan (1) Cirrhosis of liver: QUALIFIERS: Hepatic cirrhosis type: unspecified hepatic cirrhosis Ascites presence: with ascites Qualified Code(s): K74.60 - Unspecified cirrhosis of liver; R18.8 - Other ascites (2) Ascites: QUALIFIERS: Ascites type: due to alcoholic hepatitis Qualified Code(s): K70.11 - Alcoholic hepatitis with ascites PLAN: Plan Abdominal ascites in the setting of alcoholic liver cirrhosis * admitted o/a of abdominal pain * last had paracentesis about 2-3 weeks ago. Usually has it every 2-3 weeks * CT abdomen showed massive ascites and distended gallbladder with some wall thickening and enhancement but without gallstones or biliary dilatation. It is difficult to check Wellington sign due to massive ascites. She underwent large-volume paracentesis. Awaiting analysis for SBP. * Continue current medication regimen. And midodrine 10 mg p.o. 3 times daily to help decrease the amount of ascites that she makes on a daily basis. Check alpha-fetoprotein * Nadolol 10 mg p.o. twice daily for variceal prophylaxis #Alcoholic liver cirrhosis: On lactulose, nadolol and spironolactone She will get an upper endoscopy to look for progression of cirrhosis involving upper GI tract including varices, portal gastropathy, gastric antral vascular ectasia. I have examined the patient and the H&P has been reviewed. There are no clinical changes since date of exam.
[2023-12-28 08:52] VITALS: BP 104/64; PULSE 58; RESP 16; TEMP 36.4; O2SAT 99; BMI 31.4
[2023-12-28] MEDS: Lactated Ringers 1,000 ML 15 ML IV (09:11)
--- NOTE | 2023-12-28 09:45 | IMM_PTH ---
PATIENT: CAROLINA HIGHTOWER LOC: EN U#:[id number] AGE/SX: 48/F ROOM: RE12/28/[address]: Dr. José Porras DO : 1975 BED: DIS: 12/28/2023 SPEC #: [id number] RECD: 12/28/23 14:12 STATUS: TRAMAINE REQ #: [id number] KYLAH: 12/28/23 09:[address]: José Porras DEPT: IMMUNOHISTOCHEMISTRY RECD BY: Gigi Osorio ENTERED: 12/28/23 14:13 SP TYPE: IMMUNO OTHR DR: Dr. Ang Acosta MD Tissues: Stomach, NOS Procedures: H Pylori (initial) PHYSICIAN & INSTITUTION [facility] [phone] SPECIMEN INFORMATION: Tissue Source: Greater curvature biopsy Clinical Info: Cirrhosis Specimen Number: [id number] CPT code: 86236 METHODOLOGY: Deparaffinized sections of prefer/formalin-fixed tissue or PAP/DQ stained slides are incubated with monoclonal/polyclonal antibodies/oligonucleotide probes. Localization is made via biotin free immunoperoxidase method. Appropriate controls are performed and reacted as expected. Results on target cell population are indicated in the following table: RESULTS: ANTIBODY / CLONE RESULT H Pylori (polyclonal) negative These tests were developed and their performance characteristics determined by [facility]. They may not have been cleared or approved by the U.S. Food and Drug Administration. The FDA has determined that such clearance or approval is not necessary. The above immunohistochemical/dualISH markers are ordered and reviewed by the Pathologist. INTERPRETATION: Greater curvature, biopsy: Negative for Helicobacter pylori organisms. MT/ 12/29/23
--- NOTE | 2023-12-28 09:45 | EGD_PTH ---
PATIENT: CAROLINA HIGHTOWER LOC: EN U#:[id number] AGE/SX: 48/F ROOM: RE12/28/[address]: Dr. José Porras DO : 1975 BED: DIS: 12/28/2023 SPEC #: [id number] RECD: 12/28/23 13:15 STATUS: TRAMAINE MIKE #: [id number] KYLAH: 12/28/23 09:[address]: José Porras DEPT: SURGICAL PATHOLOGY RECD BY: Mayra Sanders ENTERED: 12/28/23 13:58 SP TYPE: EGD BIOPSY [place] DR: Dr. Ang Acosta MD Tissues: Stomach, NOS Procedures: Surgery Specimen Level IV HEADER OPERATION: EGD and biopsy PRE-OP DIAGNOSIS: Cirrhosis TISSUE SUBMITTED: Greater curvature biopsy MICROSCOPIC DIAGNOSIS Greater curvature, biopsy: Moderate chronic active gastritis. MT/ 12/29/23 COMMENT The results of immunohistochemistry for Helicobacter pylori will be reported separately ([id number]). MICROSCOPIC DESCRIPTION Slides are reviewed. GROSS DESCRIPTION Received in fixative is one container labeled with the patient's name and designated Greater curvature biopsy. The specimen consists of two irregular fragments of light poole soft tissue that in aggregate measure 1.0 x 0.2 x 0.1 cm. The specimen is totally submitted in one cassette. MT/ 12/28/23 TC:2 CPT: 79369
[2023-12-28 09:50] VITALS: BP 104/64; BP 98/61; PULSE 86; RESP 16; TEMP 36.2; O2SAT 93
--- NOTE | 2023-12-28 09:50 | OP.EGD_ITS ---
Patient Name: Carey Bonilla Procedure Date: 12/28/2023 9:27 AM Date of : 1975 Age: 48 Procedure: Upper GI endoscopy Indications: Epigastric abdominal pain, Esophageal varices Providers: José Porras DO Medicines: Monitored Anesthesia Care Patient Profile: This is a 48 year old female. Refer to note in patient chart for documentation of history and physical. Patient has symptoms of chronic dyspepsia, acute vomiting and chronic vomiting. Complications: No immediate complications. Procedure: Pre-Anesthesia Assessment: - Prior to the procedure, a History and Physical was performed, and patient medications and allergies were reviewed. The risks and benefits of the procedure and the sedation options and risks were discussed with the patient. All questions were answered and informed consent was obtained. Patient identification and proposed procedure were verified by the physician in the pre-procedure area. Mental Status Examination: alert and oriented. Airway Examination: normal oropharyngeal airway and neck mobility. Respiratory Examination: clear to auscultation. CV Examination: normal. Prophylactic Antibiotics: The patient does not require prophylactic antibiotics. Prior Anticoagulants: The patient has taken no anticoagulant or antiplatelet agents. ASA Grade Assessment: II - A patient with mild systemic disease. After reviewing the risks and benefits, the patient was deemed in satisfactory condition to undergo the procedure. The anesthesia plan was to use monitored anesthesia care (MAC). Immediately prior to administration of medications, the patient was re-assessed for adequacy to receive sedatives. The heart rate, respiratory rate, oxygen saturations, blood pressure, adequacy of pulmonary ventilation, and response to care were monitored throughout the procedure. The physical status of the patient was re-assessed after the procedure. After obtaining informed consent, the endoscope was passed under direct vision. Throughout the procedure, the patient's blood pressure, pulse, and oxygen saturations were monitored continuously. The gastroscope was introduced through the mouth, and advanced to the second part of duodenum. The upper GI endoscopy was accomplished without difficulty. The patient tolerated the procedure well. Scope In: 9:40:50 AM Scope Out: 9:43:36 AM Total Procedure Duration Time 0 hours 2 minutes 46 seconds Findings: Grade II varices were found in the lower third of the esophagus. They were 5 mm in largest diameter. Severe portal hypertensive gastropathy was found in the entire examined stomach. Biopsies were taken with a cold forceps for histology. Verification of patient identification for the specimen was done. Estimated blood loss was minimal. A large amount of a phytobezoar was found in the gastric body and in the gastric antrum. A benign-appearing, intrinsic moderate stenosis was found at the pylorus. This was traversed. A TTS dilator was passed through the scope. Dilation with a 15 mm pyloric balloon dilator was performed. The dilation site was examined and showed mild improvement in luminal narrowing. Estimated blood loss was minimal. Food (residue) was found in the duodenal bulb. Impression: - Grade II esophageal varices. - Portal hypertensive gastropathy. Biopsied. - A large amount of a phytobezoar in the stomach. - Gastric stenosis was found at the pylorus. Dilated. - Retained food in the duodenum. Recommendation: - Discharge patient to home. - Gastroparesis diet. - Use metoclopramide 5 mg PO QID; 30 min AC and HS for 8 weeks. - Continue present medications. Procedure Code(s): --- Professional --- 70114, Esophagogastroduodenoscopy, flexible, transoral; with dilation of gastric/duodenal stricture(s) (eg, balloon, bougie) 47717, 59,51, Esophagogastroduodenoscopy, flexible, transoral; with biopsy, single or multiple CPT copyright 2021 [employer]. All rights reserved. The codes documented in this report are preliminary and upon adult probation officer review may be revised to meet current compliance requirements. José Porras DO 12/28/2023 9:50:03 AM This report has been signed electronically. Number of Addenda: 0 Note Initiated On: 12/28/2023 9:27 AM
--- NOTE | 2023-12-28 09:50 | OP.CCLET_ITS ---
12/28/2023 Ang Acosta [address] [place] [address] Re : Upper GI endoscopy procedure for Carey Bonilla Dear Dr. Acosta This procedure was performed on Thursday, December 28, 2023. My impressions and recommendations are as follows: Impressions : - Grade II esophageal varices. - Portal hypertensive gastropathy. Biopsied. - A large amount of a phytobezoar in the stomach. - Gastric stenosis was found at the pylorus. Dilated. - Retained food in the duodenum. Recommendations : - Discharge patient to home. - Gastroparesis diet. - Use metoclopramide 5 mg PO QID; 30 min AC and HS for 8 weeks. - Continue present medications. My findings are described in the full procedure note, which is enclosed. If I can be of further assistance, please feel free to contact me at . Sincerely, José Friend, 12/28/2023 9:50:03 AM This report has been signed electronically.
[2023-12-28 09:55] VITALS: BP 100/64; BP 104/64; PULSE 76; RESP 16; O2SAT 93
[2023-12-28 10:00] VITALS: BP 100/60; BP 104/64; PULSE 72; RESP 16; O2SAT 94
[2023-12-28 10:15] VITALS: BP 104/64; BP 93/52; PULSE 76; RESP 16; TEMP 36.2; O2SAT 96
[2023-12-28 10:46] VITALS: BP 104/64
== END 2023-12-28 10:49 | disposition home or self-care (01) ==
LOC: EN 08:17 → AC 08:18
PROVIDERS: PCP Family Medicine; Referring Provider Family Medicine; Visit Provider Internal Medicine Gastroenterology
PROC: 0DJ08ZZ Inspection of Upper Intestinal Tract, Via Natural or Artificial Opening Endoscopic (ICD-10-PCS; CPT 43235; principal; 2023-12-28 09:40)
DX: K31.1 Adult hypertrophic pyloric stenosis (principal); I85.00 Esophageal varices without bleeding; K76.6 Portal hypertension; K74.60 Unspecified cirrhosis of liver; J44.9 Chronic obstructive pulmonary disease, unspecified; K70.11 Alcoholic hepatitis with ascites; B18.2 Chronic viral hepatitis C; K29.50 Unspecified chronic gastritis without bleeding; F17.210 Nicotine dependence, cigarettes, uncomplicated; K21.9 Gastro-esophageal reflux disease without esophagitis; N20.0 Calculus of kidney; T18.2XXA Foreign body in stomach, initial encounter; F10.10 Alcohol abuse, uncomplicated; Z79.899 Other long term (current) drug therapy; Z87.898 Personal history of other specified conditions; X58.XXXA Exposure to other specified factors, initial encounter
CPT/HCPCS: 43249; 43239; 88305; 88342; J7120; J2405

== ENCOUNTER → 2024-02-16 | Outpatient (CLI) | payer MEDICAID, SELFPAY ==
[2024-02-16 12:17] VITALS: BP 150/90; PULSE 55; RESP 16; TEMP 36.1; O2SAT 99
[2024-02-16] MEDS: Lidocaine 2% (20 ml mdv) 20 ML Vial INFILT (12:20)
[2024-02-16 12:30] VITALS: BP 127/79; PULSE 56; RESP 16; O2SAT 100
[2024-02-16 12:39] VITALS: BP 132/79; PULSE 57; RESP 16; O2SAT 94
--- NOTE | 2024-02-16 14:22 | PCM.OP.PRO ---
Procedure Report Date of Procedure: 02/16/24 Assessment & Plan Assessment/Plan (1) Ascites: QUALIFIERS: Ascites type: due to alcoholic hepatitis Qualified Code(s): K70.11 - Alcoholic hepatitis with ascites PLAN: PROCEDURE: Ultrasound guided paracentesis ORDERING PROVIDER: Dr. Porras INDICATION: Female, 48 years old. Abdominal ascites. PROVIDER: JOSHUA Mc TECHNIQUE: The risks, benefits, and alternatives to the procedure were explained to the patient. The specific risks of bleeding, infection, and damage to bowel were detailed and accepted. Witnessed informed consent was obtained. The abdomen was ultrasonographically surveyed. An appropriate pocket of fluid was identified in the left lower quadrant. The skin was prepped with chlorhexidine and sterile field established. 2% lidocaine was used for local anesthetic. Using ultrasound guidance, the peritoneal cavity was accessed with a 5-Estonian paracentesis needle/catheter system. The trocar was removed. A total of 2350 ml of clear yellow colored fluid was removed from the peritoneal cavity. The catheter was removed and a sterile dressing was applied. The procedure was well tolerated. IMPRESSION: Successful ultrasound-guided paracentesis with left lower quadrant access site. Procedures Radiology Radiology US Procedures: [id number] Paracentesis
== END | disposition home or self-care (01) ==
PROVIDERS: PCP Family Medicine; Referring Provider Internal Medicine Gastroenterology; Visit Provider Internal Medicine Gastroenterology
DX: R18.8 Other ascites (principal)
CPT/HCPCS: 49083

== ENCOUNTER → 2024-03-08 | Outpatient (CLI) | payer MEDICAID, SELFPAY ==
[2024-03-08] MEDS: Lidocaine 2% (20 ml mdv) 20 ML Vial INFILT (12:07)
[2024-03-08 13:21] VITALS: BP 113/68; BP 123/66; PULSE 65; PULSE 66; RESP 18; TEMP 36.4; O2SAT 99
--- NOTE | 2024-03-08 13:46 | PCM.OP.PRO ---
Procedure Report Date of Procedure: 03/08/24 Assessment & Plan Assessment/Plan (1) Ascites: QUALIFIERS: Ascites type: due to alcoholic hepatitis Qualified Code(s): K70.11 - Alcoholic hepatitis with ascites PLAN: PROCEDURE: Ultrasound guided paracentesis ORDERING PROVIDER: Dr. Porras INDICATION: Female, 48 years old. Abdominal ascites. PROVIDER: JOSHUA Mc TECHNIQUE: The risks, benefits, and alternatives to the procedure were explained to the patient. The specific risks of bleeding, infection, and damage to bowel were detailed and accepted. Witnessed informed consent was obtained. The abdomen was ultrasonographically surveyed. An appropriate pocket of fluid was identified in the left lower quadrant. The skin was prepped with chlorhexidine and sterile field established. 2% lidocaine was used for local anesthetic. Using ultrasound guidance, the peritoneal cavity was accessed with a 5-Swedish paracentesis needle/catheter system. The trocar was removed. A total of 2910 ml of clear yellow colored fluid was removed from the peritoneal cavity. The catheter was removed and a sterile dressing was applied. The procedure was well tolerated. IMPRESSION: Successful ultrasound-guided paracentesis with left lower quadrant access site. Procedures Radiology Radiology US Procedures: [id number] Paracentesis
== END | disposition home or self-care (01) ==
LOC: US 11:31
PROVIDERS: PCP Family Medicine; Referring Provider Internal Medicine Gastroenterology; Visit Provider Internal Medicine Gastroenterology
DX: R18.8 Other ascites (principal)
CPT/HCPCS: 49083

== ENCOUNTER 2024-04-11 17:19 | Observation (INO) | payer OTHER, MEDICAID, SELFPAY ==
[2024-04-11 17:21] VITALS: BP 117/69; PULSE 66; RESP 18; TEMP 36.4; O2SAT 98; BMI 29.9
[2024-04-11 18:15] LABS: Absolute Lymphocyte Count 1.43 X10^3/uL (0.83-4.51); Absolute Neutrophil Count 4.5 X10^3/uL (2.0-7.7); Basophil# 0.05 X10^3/uL; Basophil% 0.7 % (0-1); Eosinophil# 0.16 X10^3/uL; Eosinophils% 2.4 % (0-5); Hematocrit 32.6 % (37-47); Hemoglobin 11.1 g/dL (12.0-15.0); Lymphocyte # 1.43 X10^3/ul (0.83-4.51); Lymphocyte % 21.1 % (19-41); Mean Corpuscular Hgb 29.5 pg (27.0-32.0); Mean Corpuscular Volume 86.7 fL (81-99); Mean Platelet Vol. 11.8 fl (6.2-12.0); Monocyte# 0.57 X10^3/uL; Monocyte% 8.4 % (0-10); NRBC Flagged by Analyzer 0 % (0-5); Neutrophil # 4.54 X10^3/uL (2.7-7.7); Neutrophil % 67.1 % (47-70); POSITIVE COUNT YES; Platelet Count 59 K/mm3 (150-450); RBC Distribution Width CV 17.8 % (11.6-14.6); RBC Distribution Width SD 56.5 fl (35.1-43.9); Red Blood Count 3.76 M/mm3 (4.2-5.4); White Blood Count 6.8 K/mm3 (4.4-11.0)
[2024-04-11 18:31] LABS: AST(SGOT) 159 U/L (15-37); Alanine Aminotransfer ALT/SGPT 107 U/L (13-56); Albumin, Serum 2.6 g/dL (3.2-5.0); Alkaline Phosphatase 131 U/L (45-117); Anion Gap 8 (5-15); BUN 11 mg/dL (7-18); BUN/Creat Ratio 14.2 RATIO (10-20); Bilirubin, Direct 0.88 mg/dL (0.00-0.30); Chloride 110 mmol/L (98-107); Creatinine, Serum 0.77 mg/dL (0.55-1.02); EST Glomerular Filtration Rate 84 mL/min (>60); Est Glom Filt Rate - Afr Amer 101 mL/min (>60); Estimated Creatinine Clearance 82.39 ml/min; Globulin 4.6 g/dL (2.2-4.2); Glucose 93 mg/dL (74-106); Lipase 49 U/L (13-75); Potassium 3.8 mmol/L (3.5-5.1); Protein, Total 7.2 g/dL (6.4-8.2); Sodium Level 139 mmol/L (136-145)
[2024-04-11 18:33] LABS: International Normalized Ratio 1.5; Prothrombin Time (Protime)PT. 18.1 SECONDS (11.7-14.9)
[2024-04-11 19:04] LABS: Bacteria 0 SEEN /hpf (None Seen); Mucous, Urine 0 SEEN /hpf (<or=2+); Red Blood Cells-Urine 0 SEEN /hpf (0-5); Squamous Epithelial Cells - UA 0 SEEN /hpf (5-10)
[2024-04-11 19:05] LABS: Color, Urine Yellow (Yellow); Glucose, Dipstick Normal (Normal); Ketone-Dipstick Negative (Negative); Leukocyte Esterase-Dipstick 500 /ul (Negative); Nitrite-Dipstick Negative (Negative); Occult Blood-Urine 250 /ul (Negative); Protein-Dipstick 30 mg/dl (Negative); Urine Bilirubin Dipstick Negative (Negative); Urine Clarity Cloudy (Clear); Urine Urobilinogen Normal (Normal)
--- NOTE | 2024-04-11 19:07 | CT_ITS ---
INDICATION: abdominal pain EXAMINATION: CT ABDOMEN AND PELVIS WITH CONTRAST - CT Abdomen And Pelvis W/ Contrast Injection TECHNIQUE: Helically acquired images were obtained of the abdomen and pelvis following IV contrast. A radiation dose optimization technique was used for this scan. IV Contrast dosage and agent: 100 mL [id number] Oral contrast: None. COMPARISON: None. FINDINGS: LOWER CHEST: Lung bases are clear. No cardiomegaly or pericardial effusion. LIVER: Cirrhotic liver morphology. No focal mass. GALLBLADDER AND BILIARY TREE: Distended gallbladder with mild circumferential wall thickening. No CT apparent gallbladder stone. No intra- or extrahepatic biliary ductal dilation. PANCREAS: No focal cystic or solid mass. SPLEEN: Homogeneous splenomegaly ADRENAL GLANDS: No nodules. KIDNEYS AND URETERS: 9 mm nonobstructive right renal stone. Dilated right renal pelvis and right ureter with mild urothelial thickening. No current ureteral stone. Unremarkable left kidney and ureter. Unremarkable bladder. PERITONEUM: Large volume 4 quadrant ascites. No free air No other fluid collection. BOWEL: No no acute gastric finding. Mild short segment small bowel distention in the left mid abdomen 3.4 cm, possibly transient, without focal wall thickening, tapering to decompressed distal small bowel.. Normal appendix. LYMPH NODES: No enlarged mesenteric or retroperitoneal lymph nodes. VESSELS: Aorta is non-dilated. URINARY BLADDER: Unremarkable. REPRODUCTIVE ORGANS: Unremarkable uterus. Bilateral tubal ligation clips present. No evidence of adnexal mass.. ABDOMINAL WALL: No discrete abdominal or pelvic wall hernia. BONES: No lytic or blastic abnormality. CT/Abdomen/Pelvis W IV Cont ONLY IMPRESSION: Mild right hydronephrosis and hydroureter extending to the distal ureterovesical junction without evidence of ureteral stone. A 9 mm nonobstructive stone is seen within the right kidney. Correlate for history of a recently passed stone. Short interval follow-up ultrasound is recommended to assess for resolution. Correlate with urine for evidence of superimposed infection. Cirrhotic liver with large volume ascites and splenomegaly. Mild gallbladder wall thickening, commonly secondary to surrounding ascites. Gallbladder is mildly distended which may be secondary to fasting. Consider gallbladder ultrasound to better assess for cholelithiasis or gallbladder inflammation. Nonspecific short segment small bowel distention in the left upper abdomen, possibly be transient from peristalsis. Radiographic follow-up recommended to exclude developing obstruction. Electronically Signed: Abimael Ta MD at 20:33 EDT ,
--- NOTE | 2024-04-11 19:08 | EDS_ITS ---
HPI HPI - GI History of Present Illness Chief Complaint: Edema Narrative Narrative: 48-year-old female with history of cirrhosis presenting with increasing abdominal girth. She states has been getting worse over the last month. She has been seen by Dr. Porras in the past. She has had paracentesis before. She states she is currently staying in [place] and tried to go to [place] emergency room but they stated that they do not do paracentesis there. Patient also states she has nausea. PFSH PFS Medical History Complete edentulism, class III Alcohol abuse Chronic pain GERD (gastroesophageal reflux disease) Restless legs Hyperbilirubinemia Substance abuse Marijuana use MRSA infection History of renal disease Low iron Anemia Hepatitis Migraine headache Seizures History of diverticulitis COPD (chronic obstructive pulmonary disease) Smoker Obesity Thrombocytopenia Polysubstance abuse Cirrhosis of liver Anxiety and depression Home Medications ?Medication ?Instructions ?Recorded ?Last Taken ?Type gabapentin 100 mg capsule 100 mg PO Q12H nerve pain 07/20/23 Unknown History albuterol sulfate 90 mcg/actuation 2 puff inhalation Q4H PRN PRN 12/04/23 Unknown History aerosol inhaler (Ventolin HFA) shortness of breath or wheezing ascorbate calcium (vitamin C) 500 500 mg PO DAILY vitamin 12/04/23 Unknown History mg tablet ferrous sulfate 325 mg (65 mg 325 mg PO DAILY supplement 12/04/23 Unknown History iron) tablet (FeroSul) buspirone 10 mg tablet 10 mg PO 4X/DAY 04/11/24 Unknown History desvenlafaxine succinate 50 mg 50 mg PO DAILY 04/11/24 Unknown History tablet,extended release 24 hr melatonin 5 mg tablet 5 mg PO QHS 04/11/24 Unknown History topiramate 50 mg tablet 50 mg PO DAILY 04/11/24 Unknown History Allergy/AdvReac Type Severity Reaction Status Date / Time bupropion HCl (From Allergy SEIZURES Verified 04/11/24 17:20 Wellbutrin) codeine Allergy Rash Verified 04/11/24 17:20 Family History Mother Diabetes Father Cancer HX Throat CA. Surgical History History of abdominal paracentesis H/O tubal ligation History of liver biopsy Social History adopted: No household members: family housing: other number of children: 3 current occupational status: unemployed pets and animals: Yes history of recent travel: No sexually active: Yes Smoking Status: Current every day smoker tobacco type: cigarettes second hand exposure: Yes alcohol intake: current alcohol intake frequency: a few times a month substance use type: former substance user Date of last use: heroin, marijuana, heroin and methamphetamine seatbelt use: always do you feel safe at home: Yes EXAM Physical Exam Const Vital Signs: 04/11/24 17:21 04/11/24 17:42 04/11/24 19:54 Temperature 97.6 F L Temperature Source Temporal Pulse Rate 66 80 Respiratory Rate 18 17 Respiratory Effort Normal Non-Labored Respiratory Pattern Normal Blood Pressure 117/69 100/70 Blood Pressure Mean 85 80 Pulse Ox 98 100 Oxygen Delivery Method Room Air Room Air 04/11/24 21:00 Temperature Temperature Source Pulse Rate 58 L Respiratory Rate 16 Respiratory Effort Respiratory Pattern Blood Pressure 116/61 Blood Pressure Mean 79 Pulse Ox 98 Oxygen Delivery Method Room Air Positive well nourished General Appearance ED: Negative for pallor HEENT Reports moist mucous membranes normocephalic and atraumatic Eyes PERRL and EOMs intact bilaterally Neck no lymphadenopathy Resp normal respiratory effort and clear to auscultation bilaterally Auscultation: Negative for rales, rhonchi or wheezes Cardio regular rate and regular rhythm GI GI Narrative: Abdomen distended generalized tenderness with positive fluid wave Palpation: tender Neuro CN's II-XII intact bilaterally Sensorium / Orientation: alert Psych mental status grossly normal Skin General Skin Exam: Negative for jaundice or pallor MDM MDM MDM Narrative Medical decision making narrative: Patient presenting with abdominal pain. Patient presenting with right flank pain. Differential includes colitis, diverticulitis, gastritis, pancreatitis, acute cholecystitis, constipation, appendicitis, UTI, pyelonephritis, calculi, ureteral calculi, obstruction, malignancy, dehydration, electrolyte abnormalities, ascites. CBC will be obtained to assess white blood cell count, hemoglobin, platelets. CMP to assess renal function, electrolytes, liver function, glucose. Lipase to assess for pancreatitis. Urinalysis to assess for UTI. CBC shows normal white blood cell count 6.8. Hemoglobin 11.1. Platelets are low at 58. Creatinine is normal. Total bilirubin 2.1, direct bilirubin 1.88, AST 159 ALT 107 level phosphatase 131. These are all baseline values for her. Lipase is 49. Urinalysis concerning for possible UTI and she is given a gram of Rocephin. CT of the abdomen pelvis shows cirrhosis with large volume ascites. I discussed the case with Dr. Porras who says he will do a paracentesis tomorrow. Discussed with hospitalist for admission. Impression: 1. Ascites 2. UTI Lab Data Attestation: I reviewed the patient's lab results. Labs: Laboratory Results - last 24 hr 04/11/24 04/11/24 18:05 18:59 WBC 6.8 RBC 3.76 L Hgb 11.1 L Hct 32.6 L MCV 86.7 MCH 29.5 MCHC 34.0 RDW Std Deviation 56.5 H RDW Coeff of Katalina 17.8 H Plt Count 59 L MPV 11.8 Immature Gran % (Auto) 0.300 Neut % (Auto) 67.1 Lymph % (Auto) 21.1 [place] % (Auto) 8.4 Eos % (Auto) 2.4 Baso % (Auto) 0.7 Absolute Neuts (auto) 4.5 Absolute Lymphs (auto) 1.43 Nucleated RBC % 0 PT 18.1 H INR 1.5 Sodium 139 Potassium 3.8 Chloride 110 H Carbon Dioxide 21.0 Anion Gap 8 BUN 11 Creatinine 0.77 Estim Creat Clear Calc 82.39 Est GFR (MDRD) Af Amer 101 Est GFR (MDRD) Non-Af 84 BUN/Creatinine Ratio 14.2 Glucose 93 Calcium 9.0 Total Bilirubin 2.10 H Direct Bilirubin 0.88 H AST 159 H ALT 107 H Alkaline Phosphatase 131 H Total Protein 7.2 Albumin 2.6 L Globulin 4.6 H Lipase 49 Urine Color Yellow Urine Clarity Cloudy Urine pH 7.0 Ur Specific [place] 1.010 Urine Protein 30 H Urine Glucose (UA) Normal Urine Ketones Negative Urine Occult Blood 250 H Urine Nitrite Negative Urine Bilirubin Negative Urine Urobilinogen Normal Ur Leukocyte Esterase 500 H Urine RBC 0 SEEN Urine WBC >100 SEEN Ur Squamous Epith Cells 0 SEEN Urine Bacteria 0 SEEN Urine Mucus 0 SEEN Radiography Diagnostic Testing: Clinical Impression(s) from Imaging Studies Abdomen/Pelvis CT 04/11/24 19:07 IMPRESSION: Mild right hydronephrosis and hydroureter extending to the distal ureterovesical junction without evidence of ureteral stone. A 9 mm nonobstructive stone is seen within the right kidney. Correlate for history of a recently passed stone. Short interval follow-up ultrasound is recommended to assess for resolution. Correlate with urine for evidence of superimposed infection. Cirrhotic liver with large volume ascites and splenomegaly. Mild gallbladder wall thickening, commonly secondary to surrounding ascites. Gallbladder is mildly distended which may be secondary to fasting. Consider gallbladder ultrasound to better assess for cholelithiasis or gallbladder inflammation. Nonspecific short segment small bowel distention in the left upper abdomen, possibly be transient from peristalsis. Radiographic follow-up recommended to exclude developing obstruction. Electronically Signed: Abimael Ta MD at 20:33 EDT , Discharge Plan Triage Chief Complaint: Edema ED Provider: Darius Rosales Dx/Rx/DC Orders Primary Care Provider: Ang Acosta
[2024-04-11] MEDS: Ondansetron 4 MG/2 ML Vial IV (19:11)
[2024-04-11 19:12] LABS: White Blood Cells >100 SEEN /hpf (0-5)
[2024-04-11] MEDS: Morphine 4 MG/ML Syringe IV (19:47)
[2024-04-11 19:54] VITALS: BP 100/70; PULSE 80; RESP 17; O2SAT 100
[2024-04-11 21:00] VITALS: BP 116/61; PULSE 58; RESP 16; O2SAT 98
--- NOTE | 2024-04-11 21:45 | HP.PCM.HOS_ITS ---
[facility] - General General Date of Admission: 04/11/24 Date of Service: 04/11/24 Chief Complaint: Increasing Abdominal Girth and Cloudy Urine with Right Flank Pain. [facility] Narrative CAROLINA BONILLA, is a 48 F with a past medical history of tobacco abuse; with subsequent COPD, polysubstance abuse; with IVDA involving heroin and methamphetamines, chronic EtOH abuse; with subsequent cirrhosis requiring recurrent paracentesis and followed by Dr. Porras of gastroenterology, chronic decompensated hepatitis C, hepatic encephalopathy, history of esophageal varices and chronic thrombocytopenia suggestive of portal hypertension, history of seizures, recurrent UTI's, history of MRSA, overweight; with BMI of 29.9 this admission, SUMAYA, history of abnormal vaginal bleeding; with subsequent MATILDE, history of tubal ligation, history of nonobstructive renal calculi, RLS, depression with anxiety, GERD, complete edentulism and history of Left ingrown toenail with fungal infection followed by podiatry during admission here from December 04, 2023 to December 06, 2023 for which she underwent paracentesis with ~3,200 cc of clear fluid aspirated complicated by UTI who presents to [facility] ER complaining of increasing abdominal girth and cloudy urine with Right flank pain. Ms. Bonilla reports her symptoms began approximately one month prior to admission with the gradual-onset of progressively worsening edema across her abdomen. She states she had a similar presentation in November of this year with worsening cirrhosis requiring paracentesis. Then ~3 days ago she developed severe Right flank pain with cloudy urine and dysuria with patient suspecting she may have been developing an infection - but she did not seek medical attention because she thought it would resolve itself in time. She admits to nausea but she denies related fever, chills, vomiting, abdominal pain, diarrhea or constipation. In the ER she was noted to have a UA positive for evidence of Acute Cystitis; without hematuria complicated by CT evidence of a recently passed Right ureteral stone with mild Right hydroureteronephrosis extending to the distal UVJ without evidence of ureteral stone with recommendation to correlate for a recently passed stone compounded by laboratory evidence of moderate thrombocytopenia of 59K present on admission with clinical evidence of worsening ascites and need for repeat paracentesis and she was then admitted to the general medical floor for ongoing care for a stay that is expected to extend beyond 2 midnights. [facility] Medical History Anxiety Depression Kidney stones Sleep apnea Complete edentulism, class III Alcohol abuse Chronic pain GERD (gastroesophageal reflux disease) Restless legs Hyperbilirubinemia Substance abuse Marijuana use MRSA infection History of renal disease Low iron Anemia Hepatitis Migraine headache Seizures History of diverticulitis COPD (chronic obstructive pulmonary disease) Smoker Obesity Thrombocytopenia Polysubstance abuse Cirrhosis of liver Anxiety and depression Home Medications ?Medication ?Instructions ?Recorded ?Last Taken ?Type gabapentin 100 mg capsule 100 mg PO Q12H nerve pain 07/20/23 Unknown History albuterol sulfate 90 mcg/actuation 2 puff inhalation Q4H PRN PRN 12/04/23 Unknown History aerosol inhaler (Ventolin HFA) shortness of breath or wheezing ascorbate calcium (vitamin C) 500 500 mg PO DAILY vitamin 12/04/23 Unknown History mg tablet ferrous sulfate 325 mg (65 mg 325 mg PO DAILY supplement 12/04/23 Unknown History iron) tablet (FeroSul) buspirone 10 mg tablet 10 mg PO 4X/DAY 04/11/24 Unknown History desvenlafaxine succinate 50 mg 50 mg PO DAILY 04/11/24 Unknown History tablet,extended release 24 hr melatonin 5 mg tablet 5 mg PO QHS 04/11/24 Unknown History topiramate 50 mg tablet 50 mg PO DAILY 04/11/24 Unknown History Allergy/AdvReac Type Severity Reaction Status Date / Time bupropion HCl (From Allergy SEIZURES Verified 04/11/24 17:20 Wellbutrin) codeine Allergy Rash Verified 04/11/24 17:20 Family History Mother Diabetes Father Cancer HX Throat CA. Surgical History History of abdominal paracentesis H/O tubal ligation History of liver biopsy Social History adopted: No household members: family housing: other number of children: 3 current occupational status: unemployed pets and animals: Yes history of recent travel: No sexually active: Yes Smoking Status: Current every day smoker tobacco type: cigarettes second hand exposure: Yes alcohol intake: current alcohol intake frequency: a few times a month substance use type: former substance user Date of last use: heroin, marijuana, heroin and methamphetamine seatbelt use: always do you feel safe at home: Yes ROS ROS Narrative Review of systems: Constitutional: Patient denies fever, chills or sweats. Eyes: Patient denies changes in vision or discharge from eyes. ENT: Patient denies runny nose, sore throat or ear pain. CV: Patient denies chest pain, heart racing or palpitations. GI: Patient admits to increasing abdominal girth with generalized TTP. : Patient admits to Right flank pain, dysuria and cloudy urine as per HPI. MSK: Patient denies arthralgias or myalgias. Skin: Patient has deep poole with mild jaundice. She denies rash or abscess. Psych: Patient denies symptoms related to uncontrolled depression or anxiety. Neuro: Patient denies headache, paresthesias or focal neurologic deficits. Allergic: Patient denies lip swelling, tongue swelling or urticaria. Endocrine: Patient denies polyuria, polydipsia or polyphagia. 14 point ROS otherwise negative except for positives noted above. Vital Signs Vital Signs Vital Signs: 04/11/24 17:21 04/11/24 17:42 04/11/24 19:54 Temperature 97.6 F L Temperature Source Temporal Pulse Rate 66 80 Respiratory Rate 18 17 Respiratory Effort Normal Non-Labored Respiratory Pattern Normal Blood Pressure 117/69 100/70 Blood Pressure Mean 85 80 Pulse Ox 98 100 Oxygen Delivery Method Room Air Room Air 04/11/24 21:00 Temperature Temperature Source Pulse Rate 58 L Respiratory Rate 16 Respiratory Effort Respiratory Pattern Blood Pressure 116/61 Blood Pressure Mean 79 Pulse Ox 98 Oxygen Delivery Method Room Air Weight Weight: 163 lb 6.4 oz Body Mass Index (BMI) 29.9 Physical Exam Const alert, oriented x3 and no apparent distress General Appearance: cooperative HEENT normocephalic, head/scalp atraumatic, hearing grossly normal bilaterally and moist oral mucous membranes Eyes PERRL and EOMs intact bilaterally Neck no lymphadenopathy and supple Resp normal respiratory effort, no retractions, no use of accessory muscles and clear to auscultation bilaterally Cardio regular rate and regular rhythm GI GI Narrative: Cirrhotic abdomen with tense ascites noted. Normal bowel sounds without TTP. Skin Skin Narrative: Patient has evidence of mild jaundice with deep poole but she has no evidence of abscess or rash. Neuro oriented x3, CN's II-XII intact bilaterally, moves all extremities and no focal motor deficits Sensorium / Orientation: awake, alert, oriented to person, oriented to place and oriented to time Speech: speech normal Psych affect normal Results Medical Records Data Attestation: I reviewed the patient's medical records Lab / Micro Data Attestation: I reviewed the patient's lab results. 04/11/24 18:05 04/11/24 18:05 Labs: Laboratory Results - last 24 hr 04/11/24 18:05: WBC 6.8, RBC 3.76 L, Hgb 11.1 L, Hct 32.6 L, MCV 86.7, MCH 29.5, MCHC 34.0, RDW Std Deviation 56.5 H, RDW Coeff of Katalina 17.8 H, Plt Count 59 L, MPV 11.8, Immature Gran % (Auto) 0.300, Neut % (Auto) 67.1, Lymph % (Auto) 21.1, [place] % (Auto) 8.4, Eos % (Auto) 2.4, Baso % (Auto) 0.7, Absolute Neuts (auto) 4.5, Absolute Lymphs (auto) 1.43, Nucleated RBC % 0, PT 18.1 H, INR 1.5, Sodium 139, Potassium 3.8, Chloride 110 H, Carbon Dioxide 21.0, Anion Gap 8, BUN 11, Creatinine 0.77, Estim Creat Clear Calc 82.39, Est GFR (MDRD) Af Amer 101, Est GFR (MDRD) Non-Af 84, BUN/Creatinine Ratio 14.2, Glucose 93, Calcium 9.0, Total Bilirubin 2.10 H, Direct Bilirubin 0.88 H, AST 159 H, ALT 107 H, Alkaline Phosphatase 131 H, Total Protein 7.2, Albumin 2.6 L, Globulin 4.6 H, Lipase 49 04/11/24 18:59: Urine Color Yellow, Urine Clarity Cloudy, Urine pH 7.0, Ur Specific [place] 1.010, Urine Protein 30 H, Urine Glucose (UA) Normal, Urine Ketones Negative, Urine Occult Blood 250 H, Urine Nitrite Negative, Urine Bilirubin Negative, Urine Urobilinogen Normal, Ur Leukocyte Esterase 500 H, Urine RBC 0 SEEN, Urine WBC >100 SEEN, Ur Squamous Epith Cells 0 SEEN, Urine Bacteria 0 SEEN, Urine Mucus 0 SEEN ABG Data Attestation: I personally reviewed and interpreted this ABG as follows: Imaging Radiology Impression Abdomen/Pelvis CT 04/11/24 19:07 IMPRESSION: Mild right hydronephrosis and hydroureter extending to the distal ureterovesical junction without evidence of ureteral stone. A 9 mm nonobstructive stone is seen within the right kidney. Correlate for history of a recently passed stone. Short interval follow-up ultrasound is recommended to assess for resolution. Correlate with urine for evidence of superimposed infection. Cirrhotic liver with large volume ascites and splenomegaly. Mild gallbladder wall thickening, commonly secondary to surrounding ascites. Gallbladder is mildly distended which may be secondary to fasting. Consider gallbladder ultrasound to better assess for cholelithiasis or gallbladder inflammation. Nonspecific short segment small bowel distention in the left upper abdomen, possibly be transient from peristalsis. Radiographic follow-up recommended to exclude developing obstruction. Electronically Signed: Abimael Ta MD at 20:33 EDT Reading Location ID and State: [facility] / [place] Tel , Service support , Assessment & Plan Assessment/Plan (1) Acute cystitis without hematuria: (2) Thrombocytopenia: (3) Ascites of liver: (4) Cirrhosis of liver: QUALIFIERS: Ascites presence: with ascites Hepatic cirrhosis type: unspecified hepatic cirrhosis Qualified Code(s): K74.60 - Unspecified cirrhosis of liver; R18.8 - Other ascites (5) Hepatitis C, chronic: QUALIFIERS: Hepatic coma status: without hepatic coma Qualified Code(s): B18.2 - Chronic viral hepatitis C (6) Iron deficiency anemia: QUALIFIERS: Iron deficiency anemia type: chronic blood loss Q ualified Code(s): D50.0 - Iron deficiency anemia secondary to blood loss (chronic) (7) Polysubstance abuse: PLAN: Plan 1. UA positive for evidence of Acute Cystitis; without hematuria complicated by CT evidence of a recently passed Right ureteral stone with mild Right hydroureteronephrosis extending to the distal UVJ without evidence of ureteral stone with recommendation to correlate for a recently passed stone in the setting of a known history of nonobstructive renal calculi - Admit to general medical floor. Continue empiric IV Rocephin begun in the ER and await culture and sensitivity data. 2. Moderate thrombocytopenia of 59K present on admission complicating #1 likely due to known history of esophageal varices and portal hypertension - Check daily CBC to follow trend. Avoid blood thinning agents. Platelet count ranged from 59K to 87K last admission. 3. Clinical evidence of worsening ascites with need for repeat paracentesis compounding #1 & #2 - Patient already given 25g IV Albumin once to fully prepare her for procedure. Finally, we will consult Dr. Porras to perform paracentesis on this patient in the AM on-rounds with help appreciated in advance. 4. Recent admission here from December 04, 2023 to December 06, 2023 for which she underwent paracentesis with ~3,200 cc of clear fluid aspirated complicated by UTI plus history of Left ingrown toenail with fungal infection followed by podiatry - Noted. 5. Chronic EtOH abuse (quit 2022); with subsequent cirrhosis, chronic decompensated hepatitis C and hepatic encephalopathy requiring recurrent paracentesis and followed by Dr. Porras of gastroenterology adding to the pathology of #1 -#4 - Noted. 6. History of Polysubstance abuse; with IVDA involving heroin, methamphetamines and cannabis - Check UDS this admission with patient claiming she quit last month. 7. Tobacco abuse; with subsequent COPD - Stable with no evidence of flare. Give nebulizers prn. 8. History of seizures - Noted. Give IV Ativan prn for breakthrough seizure activity. 9. History of MRSA - Noted. 10. Overweight; with BMI of 29.9 this admission plus SUMAYA - Weight loss will be recommended. Continue nocturnal CPAP. 11. History of abnormal vaginal bleeding; with subsequent chronic MATILDE - Noted with stable hemoglobin of 11.1 g/dL this admission. 12. History of tubal ligation - Noted. 13. RLS - Stable. 14. Depression with anxiety - Continue home regimen as previous. 15. GERD - Apparently stable with patient not on PPI at this time. 16. Complete edentulism - Noted. 17. DVT prophylaxis - SCD's only in light of low platelet count in #2 and upcoming paracentesis in AM. Total time: Approximately 75 minutes. Charges/Coding Visit Charges Inpatient E&M: 95256 Init Hosp L3
[2024-04-11] MEDS: Ceftriaxone 1 GM/50 ML BAG IV (21:56)
--- OUTSIDE RECORDS SUMMARY | 2024-04-11 21:58 | XMS RPT_ITS | CCD ---
Author Organization [facility] Inform ion Partnership [facility] Care Team Providers Care Rack Pusher Name Role Phone ABDLUIS MIGUEL NICKMEH Unavailable Unav ailable LORENAMONIQUE SANCHEZJANAY RENAY Unavailable Unav ailable Dacia Acosta MD Primary Care Provider Dacia Acosta MD Primary Care Provider Dacia Acosta MD Primary Care Provider Dacia Acosta MD Primary Care Provider [phone] Unavailable Primary Care Provider UnavailANDERSON Tucker Consulting Unavailable CINDI SALAS Admitting Unavailable SAIMA TAN Attending Unavailable Priscilla Rodriguez RN Unavailable [phone] DACIA ACOSTA Primary Care Unavailable KOKO RUIZ Attending Unavailable KOKO RUIZ Referring Unavailable DACIA ACOSTA Primary Care Unavailable ELVIN MERAZ Admitting Unavailable JEROME AMAYA Attending Unavailable JT MALDONADO Consulting Unavailable Priscilla Rodriguez RN Unavailable Dacia Acosta MD Primary Care Provider DACIA ACOSTA Primary Care Unavailable DACIA ACOSTA Referring Unavailable DACIA ACOSTA Attending Unavailable DACIA ACOSTA Primary Care Unavailable SELF Referring Unavailable DACIA ACOSTA Primary Care Unavailable MELISA MAIN Attending Unavailable DACIA ACOSTA Primary Care Unavailable DACIA ACOSTA Primary Care Unavailable ASHNATI SQUIRES Attending Unavailable DACIA ACOSTA Primary Care Unavailable MERVIN MATTHEWS Attending Unavailable SELF Referring Unavailable AHMET DOOLEY, DR PEDERSON Primary Care Physician DR DACIA ACOSTA MD Primary Care Unavailab le FROMMELT DO, CARLA Attending [facility] Allergies Allergy Classification Reported Allergen(s) Allergy Type Date of Onset Reaction(s) Facility Aminoketones (1 source) buPROPion; Translations: [bupropion] Drug Allergy [facility] Aspirin (1 source) Aspirin; Translations: [aspirin] Drug Allergy Weal (disorder) [facility] Opioid Agonists (1 source) Codeine; Translations: [codeine] Drug Allergy Weal (disorder) [facility] (20 sources) Aspirin; Translations: [ASPIRIN] Drug Allergy 5 [facility] (20 sources) buPROPion; Translations: [BUPROPION HCL] Drug Allergy 3 Other: See Comments [facility] (20 sources) Codeine; Translations: [CODEINE] Drug Allergy 5 Rash, Hives [facility] (20 sources) buPROPion; Translations: [BUPROPION] Drug Allergy 3 Other: See Comments [facility] (20 sources) predniSONE; Translations: [PREDNISONE] Drug Allergy 9 Rash [facility] Work Phone: (3 sources) Prednisone Propensity to adverse reactions 9 [facility] Medications Current Medications Medication Drug Class(es) Dates Sig (Normalized) Sig (Original) [id number] actuat albuterol 0.09 mg/actuat metered dose inhaler (20 sources) beta2-Adrenergic Agonist Start: 11-23-2023 take 2 puff(s) by inhalation every four hours as needed albuterol HFA (PROAIR HFA) 90 mcg/actuation inhaler Inhale 2 Puffs as instructed every 4 hours as needed. 1 Each 1 11/23/2023 Active Start: 01-11-2022 take 2 puff(s) by in halation every four hours as needed albuterol HFA (PROAIR HFA) 90 mcg/actuation inhaler Inhale 2 Puffs as instructed every 4 hours as needed. 18 g 0 01/11/2022 Active Comment on above: Inhale 2 Puffs as in structed every 4 hours as needed. ARIPiprazole 10 mg oral tablet (9 sources) Atypical Antipsychotic Start: 03-23-2024 ARIPiprazole 10 mg oral tablet Dose : 10 mg = 1 tab(s), Oral, qDay, # 30 tab(s), 0 Refill(s) Start Date: 03/23/24 Status: Ordered Start: 05-15-2021 End: 05-10-2022 ARIPiprazole (ABILIFY) 20 mg tablet ascorbic acid 500 mg oral tablet (14 sources) Vitamin C Start: 11-24-2023 End: 07-17-2024 take 1 tablet by mouth once daily ascorbic acid, vitamin C, (VITAMIN C) 500 mg tablet Take 1 tablet by mouth once daily. 30 tablet 5 01/19/2024 07/17/2024 Active Comment on above: Take 1 tablet by nish once daily. busPIRone hydrochloride 10 mg oral tablet (3 sources) take 1 tablet by mouth four times daily as needed busPIRone (Buspar) 10 MG tablet Take 10 mg by mouth 4 times daily as needed. 0 Active cephalexin 500 mg oral capsule (6 sources) Cephalosporin Antibacterial Start: 03-23-2024 End: 03-30-2024 cephalexin 500 mg oral capsule Dose : 500 mg = 1 cap(s), Oral, QID, X 7 day(s), # 28 cap(s), 0 Refill(s), 03/30/24 5:51:00 PM EDT, 72.6 Start Date: 03/23/24 Stop Date: 03/30/24 Status: Ordered Start: 01-31-2024 End: 02-07-2024 take 1 capsule by mouth four times daily cephALEXin (KEFLEX) 500 mg capsule Indications: Skin sore , Acute cystitis with hematuria Take 1 capsule by mouth four times daily for 7 days. 28 capsule 0 01/31/2024 02/07/2024 Start: 03-11-2022 End: 03-21-2022 take 1 capsule by mouth three times daily cephALEXin (KEFLEX) 500 mg capsule Indications: Bacterial skin infection Take 1 capsule by mouth three times daily for 10 days. 30 capsule 0 03/11/2022 03/21/2022 Active Comment on above: Take 1 capsule by mo [facility] three times daily for 10 days. 24 hr desvenlafaxine succinate 50 mg extended release oral tablet (20 sources) Serotonin and Norepinephrine Reuptake Inhibitor Start: 03-23-2024 desvenlafaxine (as succinate) 50 mg oral tablet, extended release Dose : 50 mg = 1 tab(s), Oral, Daily, # 30 tab(s), 0 Refill(s) Start Date: 03/23/24 Status: Ordered Start: 09-16-2023 End: 09-15-2024 take 1 tablet by mouth once daily desvenlafaxine (Pristiq) 100 MG 24 hr tablet Take 1 tablet (100 mg) by mouth daily. Do not crush, chew, or split. 300 tablet 1 09/16/2023 09/15/2024 Active Start: 09-10-2023 End: 09-15-2023 take 100 mg by mouth once daily 100 mg, Oral, Daily, First dose on 09/10/23 at 0900, Do not crush, chew, or split. Start: 11-02-2021 desvenlafaxine ER (PRISTIQ) 100 mg 24 hr tablet doxycycline hyclate 100 mg oral tablet (12 sources) Tetracycline-class Drug Start: 02-02-2024 End: 02-12-2024 take 1 tablet by mouth twice daily doxycycline (VIBRA-TABS) 100 mg tablet Take 1 tablet by mouth two times a day for 10 days. 20 tablet 0 02/02/2024 02/12/2024 Active Start: 11-01-2023 End: 11-08-2023 take 1 tablet by mouth twice daily doxycycline (VIBRA-TABS) 100 mg tablet Take 1 tablet by mouth two times a day for 7 days. 14 tablet 0 11/01/2023 11/08/2023 Active Start: 01-27-2023 End: 02-01-2023 take 1 capsule by mouth twice daily doxycycline monohydrate (MONODOX) 100 mg capsule Indications: Cellulitis of chin Take 1 capsule by mouth twice daily for 5 days. 10 capsule 0 01/27/2023 02/01/2023 Active Start: 12-02-2022 End: 12-07-2022 take 1 tablet by mouth twice daily doxycycline monohydrate 100 mg tablet Take 1 tablet by mouth twice daily for 5 days. 10 tablet 0 12/02/2022 12/07/2022 Active Start: 09-29-2022 End: 10-04-2022 take 1 capsule by mouth twice daily doxycycline monohydrate (MONODOX) 100 mg capsule Indications: Cellulitis of chin Take 1 capsule by mouth twice daily for 5 days. 10 capsule 0 09/29/2022 10/04/2022 Active Start: 05-09-2022 End: 05-14-2022 take 1 tablet by mouth twice daily doxycycline monohydrate 100 mg tablet Take 1 tablet by mouth twice daily for 5 days. 10 tablet 0 05/09/2022 05/14/2022 Active Comment on above: Take 1 tablet by nish twice daily for 5 days. Take 1 capsule by mo [facility] twice daily for 5 days. Take 1 tablet by nish th two times a day for 7 days. Cymbalta (1 source) Serotonin and Norepinephrine Reuptake Inhibitor Start: 7 Cymbalta Oral, 0 Refill(s) Start Date: 06/26/17 Status: Ordered FeroSul 325 mg (65 mg elemental iron) oral tablet (1 source) Start: 4 FeroSul 325 mg (65 mg elemental iron) oral tablet Dose : 325 mg = 1 tab(s), Oral, qDay Start Date: 03/23/24 Status: Ordered ferrous sulfate 325 mg oral tablet (14 sources) Start: End: 4 take 1 tablet by mouth once daily ferrous sulfate 325 mg (65 mg iron) tablet Take 1 tablet by mouth once daily. 30 tablet 5 01/19/2024 07/17/2024 Active Comment on above: Take 1 tablet by nish once daily. furosemide 40 mg oral tablet (20 sources) Loop Diuretic Start: 4 take 1 tablet by mouth once daily furosemide (LASIX) 40 mg tablet Take 1 tablet by mouth once daily. 0 12/06/2023 Active Start: 08-21-2021 take 1 tablet by nish once daily furosemide (LASIX) 20 mg tablet Indications: Bilateral leg edema Take 1 tablet by mouth once daily. 30 tablet 2 08/21/2021 Active Comment on above: Take 1 tablet by nish once daily. gabapentin 100 mg oral capsule (20 sources) Anti-epileptic Agent Start: 05-26-2022 End: 07-17-2024 gabapentin 100 mg oral capsule Dose : 100 mg = 1 cap(s), Oral, BID, 72.6 Start Date: 03/23/24 Status: Ordered Start: 02-09-2022 End: 04-10-2022 take 1 capsule by mouth twice daily gabapentin (NEURONTIN) 400 mg capsule Indications: Chronic midline low back pain with bilateral sciatica Take 1 capsule by mouth twice daily for 30 days. 60 capsule 5 03/11/2022 Active Start: 12-17-2021 End: 01-16-2022 take 1 capsule by mouth twice daily gabapentin (NEURONTIN) 400 mg capsule Take 1 capsule by mouth twice daily for 30 days. 60 capsule 0 12/17/2021 01/16/2022 Active Comment on above: Take 1 capsule by mo ut twice daily for 30 days. Take 1 capsule by mo ut twice daily for 180 days. hydrOXYzine pamoate 50 mg oral capsule (20 sources) Antihistamine Start: 03-23-2024 End: 03-28-2024 hydrOXYzine pamoate 50 mg oral capsule Dose : 50 mg = 1 cap(s), Oral, QID, X 5 day(s), # 20 cap(s), 0 Refill(s), 03/28/24 6:00:00 PM EDT Start Date: 03/23/24 Stop Date: 03/28/24 Status: Ordered Start: 01-31-2024 take 1 tablet by nish th every six hours as needed hydrOXYzine HCl (ATARAX) 25 mg tablet Indications: Anxiety with depression Take 1 tablet by mouth every 6 hours as needed for itching/rash. 20 tablet 0 01/31/2024 Active Start: 11-23-2023 End: 01-12-2024 take 1 tablet by mouth every eight hours as needed hydrOXYzine HCl (ATARAX) 25 mg tablet Take 1 tablet by mouth every 8 hours as needed. 60 tablet 0 12/13/2023 01/12/2024 Active Start: 04-14-2017 End: 05-10-2022 take 1 capsule by mouth every eight hours as needed hydrOXYzine pamoate (VISTARIL) 50 mg capsule Take 1 capsule by mouth three times daily as needed. 0 04/14/2017 05/10/2022 Discontinued Comment on above: Take 1 capsule by mo uth three times daily as needed. Take 1 tablet by nish th every 8 hours as needed. ibuprofen 600 mg oral tablet (6 sources) Nonsteroidal Anti-inflammatory Drug Start: 03-23-2024 ibuprofen 600 mg oral tablet Dose : 600 mg = 1 tab(s), Oral, q6h, PRN for pain, Take with food or milk. Start Date: 03/23/24 Status: Ordered Start: 01-31-2024 take 1 tablet by nish th every six hours as needed ibuprofen (MOTRIN) 600 mg tablet Take 1 tablet by mouth every 6 hours as needed for pain. 30 tablet 0 01/31/2024 Active melatonin 5 mg oral tablet (6 sources) Start: 03-23-2024 Melatonin 5 mg oral tablet Dose : 5 mg = 1 tab(s), Oral, qHS, PRN as needed for insomnia Start Date: 03/23/24 Status: Ordered Start: 09-10-2023 End: 09-15-2023 take 3 mg by mouth once daily as needed for sleep 3 mg, Oral, Nightly PRN, sleep, Starting on 09/10/23 at 0547 take 1 tablet by nish th once daily melatonin 5 MG tablet Take 5 mg by mouth Nightly. 0 Active mupirocin 0.02 mg/mg topical ointment (18 sources) RNA Synthetase Inhibitor Antibacterial Start: 03-23-2024 mupirocin 2% topical ointment Apply 1 camille, Topical, TID, 72.6 Start Date: 03/23/24 Status: Ordered Start: 01-31-2024 mupirocin (EDIE TROBAN) 2 % ointment Apply to affected area three times a day. 30 g 0 01/31/2024 Active Start: 11-01-2023 End: 11-06-2023 mupirocin (BACTROBAN) 2 % oi ntment Apply to affected area three times a day for 5 days. 22 g 0 11/01/2023 11/06/2023 Active Start: 01-27-2023 End: 02-06-2023 mupirocin (BACTROBAN) 2 % cr eam Indications: Cellulitis of chin Apply 1 application to affected area three times daily for 10 days. Location: chin 30 g 0 01/27/2023 02/06/2023 Active Start: 09-29-2022 End: 10-09-2022 mupirocin (BACTROBAN) 2 % cr eam Indications: Cellulitis of chin Apply 1 application to affected area three times daily for 10 days. Location: chin 30 g 0 09/29/2022 10/09/2022 Active Start: 05-21-2022 End: 09-29-2022 mupirocin (BACTROBAN) 2 % oi ntment THREE TIMES A DAY 0 05/21/2022 09/29/2022 Discontinued (Side Effects) Start: 05-09-2022 End: 05-19-2022 mupirocin (BACTROBAN) 2 % cr eam Apply 1 application to affected area three times daily for 10 days. Location: chin 15 g 0 05/09/2022 05/19/2022 Active Comment on above: Apply 1 application to affected area three times daily for 10 days. Location: chin THREE TIMES A DAY Apply to affected ar ea three times a day for 5 days. 24 hr nicotine 0.875 mg/hr transdermal system (20 sources) Cholinergic Nicotinic Agonist Start: apply 1 dose transdermal route every hour nicotine (NICODERM) 21 mg/24 hr Apply 1 Patch as directed as directed. 0 12/07/2023 Active Start: 09-11-2023 End: 09-15-2023 nicotine polacrilex (Commit) lozenge 2 mg Start: 09-10-2023 End: 09-15-2023 apply 1 dose transdermal route once daily at bedtime as needed 1 patch, TransDERmal, Administer over 24 Hours, Daily PRN, Nicotine cravings, Starting on 09/10/23 at 0547, Apply new patch to nonhairy, clean, dry skin on the upper body or upper outer arm. Rotate patch sites. Notify Pharmacy if patient or provider prefers patch to be removed at bedtime and replaced in the morning. Start: 05-21-2022 nicotine (VINCE DERM) 21 mg/24 hr Comment on above: Apply 1 Patch as dir ected as directed. nitrofurantoin, macrocrystals 25 mg / nitrofurantoin, monohydrate 75 mg oral capsule (1 source) Nitrofuran Antibacterial Start: End: take 1 capsule by mouth twice daily at mealtime nitrofurantoin monohydrate and macrocrystal (MACROBID) 100 mg capsule Take 1 capsule by mouth two times a day with meals for 7 days. 14 capsule 0 11/28/2023 12/05/2023 Active Comment on above: Take 1 capsule by mo [facility] two times a day with meals for 7 days. omeprazole 40 mg delayed release oral capsule (3 sources) Proton Pump Inhibitor take 1 capsule by mouth once daily before breakfast omeprazole (PriLOSEC) [address] capsule Take 40 mg by mouth every morning (before breakfast). Do not crush or chew. 0 Active ondansetron 4 mg disintegrating oral tablet (20 sources) Serotonin-3 Receptor Antagonist Start: 024 take 1 tablet by mouth every eight hours as needed ondansetron orally disintegrating (ZOFRAN ODT) 4 mg disintegrating tablet Take 1 tablet by mouth every 8 hours as needed. 12 tablet 0 11/03/2023 Active Start: 09-09-2023 End: 09-09-2023 ondansetron (Zofran) injecti on 4 mg Start: 05-26-2022 End: 12-13-2023 take 1 tablet by mouth every six hours as needed for nausea ondansetron orally disintegrating (ZOFRAN ODT) 4 mg disintegrating tablet Indications: Nausea and vomiting, unspecified vomiting type Take 1 tablet by mouth every 6 hours as needed for nausea/vomiting. 20 tablet 5 12/13/2023 Active Comment on above: Take 1 tablet by nish every 6 hours as needed for nausea/vomiting. Take 1 tablet by nish every 8 hours as needed. pantoprazole 40 mg delayed release oral tablet (20 sources) Proton Pump Inhibitor Start: 022 take 1 tablet by mouth twice daily before mealtime pantoprazole DR (PROTONIX) 40 mg tablet Take 1 tablet by mouth twice daily before meals. Take on empty stomach, 1/2 hr before meal. 60 tablet 11 08/25/2022 Active Start: 09-02-2021 take 1 tablet by nish th twice daily before mealtime pantoprazole DR (PROTONIX) 40 mg tablet Take 1 tablet by mouth twice daily before meals. Take on empty stomach, 1/2 hr before meal. 60 tablet 11 09/02/2021 Active Comment on above: Take 1 tablet by nish twice daily before meals. Take on empty stomach, 1/2 hr before meal. perflutren lipid microspheres 1.3 mL in NaCl (PF) 0.9% 10 mL injection (DEFINITY) (15 sources) Start: 08-21-20 End: 11-20-19 perflutren lipid microspheres 1.3 mL in NaCl (PF) 0.9% 10 mL injection (DEFINITY) predniSONE 10 mg oral tablet (4 sources) Start: 11-23-19 End: 12-02-19 take 3 tablets by mouth once daily, then take 2 tablets by mouth once daily, then take 1 tablet by mouth once daily predniSONE (DELTASONE) 10 mg tablet Take 3 tablets by mouth once daily for 3 days, THEN 2 tablets once daily for 3 days, THEN 1 tablet once daily for 3 days. 18 tablet 0 11/23/2023 12/02/2023 Active Comment on above: Take 3 tablets by mo [facility] once daily for 3 days, THEN 2 tablets once daily for 3 days, THEN 1 tablet once daily for 3 days. spironolactone 50 mg oral tablet (20 sources) Aldosterone Antagonist Start: 03-23-20 spironolactone 50 mg oral tablet Dose : 50 mg = 1 tab(s), Oral, qDay, # 30 tab(s), 0 Refill(s) Start Date: 03/23/24 Status: Ordered Start: 12-06-2023 take 1 tablet by nish once daily spironolactone (ALDACTONE) 100 mg tablet Take 1 tablet by mouth once daily. 0 12/06/2023 Active Start: 11-24-2023 End: 01-23-2024 take 1 tablet by mouth once daily spironolactone (ALDACTONE) 50 mg tablet Take 1 tablet by mouth once daily. 30 tablet 1 11/24/2023 Active take 1 tablet by nish th once daily spironolactone (Aldactone) 50 MG tablet Take 50 mg by mouth daily. 0 Active Comment on above: Take 1 tablet by nish once daily. topiramate 25 mg oral tablet (20 sources) Start: 03-23-2024 topiramate 25 mg oral tablet Dose : 25 mg = 1 tab(s), Oral, BID, # 60 tab(s), 0 Refill(s) Start Date: 03/23/24 Status: Ordered Start: 05-15-2021 topiramate (TO PAMAX) 100 mg tablet take 1 tablet by nish th once daily topiramate (Topamax) 50 MG tablet Take 50 mg by mouth daily. 0 Active Vitamin C 500 mg oral tablet (1 source) Start: 03-23-2024 Vitamin C 500 mg oral tablet Dose : 500 mg = 1 tab(s), Oral, qDay Start Date: 03/23/24 Status: Ordered zolpidem tartrate 10 mg oral tablet (1 source) gamma-Aminobutyric Acid-ergic Agonist Start: 12-23-2014 Ambien 10 mg oral tablet Dose : 10 mg = 1 tab(s), Oral, qHS, PRN as needed for sleep Start Date: 12/23/14 Status: Ordered Completed/Discontinued Medications Medication Drug Class(es) Dates Sig (Normalized) Sig (Original) Acetaminophen (2 sources) Start: 09-10-2023 End: 09-15-2023 take 1 tablet by mouth every six hours as needed for pain and fever acetaminophen (Tylenol) tablet 650 mg 20 ml albumin human, chcf 250 mg/ml injection (2 sources) Human Serum Albumin Start: 09-10-2023 End: 09-10-2023 albumin human 25 % IV solution 50 g bacitracin 0.5 unt/mg / neomycin 0.0035 mg/mg / polymyxin b 10 unt/mg topical ointment (4 sources) Aminoglycoside Antibacterial, Polymyxin-class Antibacterial Start: 09-14-2023 End: 09-15-2023 neomycin-bacitraci n-polymyxin (Neosporin) ointment Start: 09-13-2023 End: 09-13-2023 gjlvgqyo-cpfoltprdw-gmluzpkn n (Neosporin) ointment brompheniramine maleate 0.4 mg/ml / dextromethorphan hydrobromide 2 mg/ml / pseudoephedrine hydrochloride 6 mg/ml oral solution (8 sources) alpha-Adrenergic Agonist, Uncompetitive C-bgvvzz-N-aspartate Receptor Antagonist, Sigma-1 Agonist Start: 01-11-2022 End: 05-10-2022 take 5-10 mL by mouth every six hours as needed Eixvsodhzqjapsa-Qynpymawj-UW (BROMFED DM) 2-30-10 mg/5 mL syrup Take 5-10 ml po q6h prn 120 mL 0 01/11/2022 05/10/2022 Discontinued Comment on above: Take 5-10 ml po q6h prn cholecalciferol 1.25 mg oral capsule (20 sources) Vitamin D Start: 08-25-2022 take 1 capsule by mouth every week cholecalciferol, Vitamin D3, (VITAMIN D3) 1,250 mcg (50,000 unit) cap capsule Take 1 capsule by mouth one time a week. 12 capsule 3 08/25/2022 Active Start: 09-02-2021 take 1 capsule by [facility] every week cholecalciferol, Vitamin D3, (VITAMIN D3) 1,250 mcg (50,000 unit) cap capsule Take 1 capsule by mouth one time a week. 12 capsule 3 09/02/2021 Active Comment on above: Take 1 capsule by [facility] one time a week. cloNIDine hydrochloride 0.1 mg oral tablet (2 sources) Central alpha-2 Adrenergic Agonist Start: 09-10-20 End: 09-15-20 take 1 tablet by mouth every six hours as needed cloNIDine (Catapres) tablet 0.1 mg cyclobenzaprine hydrochloride 10 mg oral tablet (18 sources) Muscle Relaxant Start: 11-12-19 take 1 tablet by mouth three times daily as needed for pain cyclobenzaprine (FLEXERIL) 10 mg tablet Indications: Chronic midline low back pain with bilateral sciatica Take 1 tablet by mouth three times daily as needed for muscle spasm or pain. 30 tablet 2 11/12/2022 Active Start: 01-27-2022 End: 05-10-2022 take 1 tablet by mouth three times daily as needed for pain cyclobenzaprine (FLEXERIL) 10 mg tablet Indications: Chronic midline low back pain with bilateral sciatica Take 1 tablet by mouth three times daily as needed for muscle spasm or pain. 30 tablet 2 01/27/2022 05/10/2022 Discontinued Start: 10-27-2021 take 1 tablet by nish three times daily as needed for pain cyclobenzaprine (FLEXERIL) 10 mg tablet Indications: Chronic midline low back pain with bilateral sciatica Take 1 tablet by mouth three times daily as needed for muscle spasm or pain. 30 tablet 2 10/27/2021 Active Comment on above: Take 1 tablet by nish three times daily as needed for muscle spasm or pain. dicyclomine hydrochloride 20 mg oral tablet (2 sources) Anticholinergic Start: 09-10-20 End: 09-15-20 take 1 tablet by mouth every six hours as needed dicyclomine (Bentyl) tablet 20 mg doxepin hydrochloride 10 mg oral capsule (20 sources) Tricyclic Antidepressant Start: 12-02-19 End: 09-14-20 take 1 capsule by mouth once daily at bedtime doxepin capsule 10 mg Indications: Insomnia, unspecified type Take 1 capsule by mouth daily at bedtime. 30 capsule 2 12/01/2017 Active Comment on above: Take 1 capsule by [facility] daily at bedtime. iopamidol (Isovue-370) 76 % injection 75 mL (2 sources) Start: 09-09-20 End: 09-09-20 iopamidol (Isovue-370) 76 % injection 75 mL 1 ml ketorolac tromethamine 30 mg/ml cartridge (2 sources) Nonsteroidal Anti-inflammatory Drug, Cyclooxygenase Inhibitor Start: 09-10-20 End: 09-10-20 ketorolac (Toradol) injection 15 mg Lactulose (20 sources) Osmotic Laxative Start: 09-10-20 End: 09-15-20 lactulose (Chronulac) 10 GM/15ML solution 20 g Start: 05-21-2022 lactulose (DUP HALAC, CONSTULOSE) 10 gram/15 mL solution Start: 05-21-2022 take 30 mL by mouth twice bridget y lactulose (DUPHALAC, CONSTULOSE) 10 gram/15 mL solution TAKE 30 ML BY MOUTH TWICE DAILY 0 05/21/2022 Active Comment on above: TAKE 30 ML BY MOUTH TWICE DAILY mirtazapine 15 mg disintegrating oral tablet (2 sources) End: take 1 tablet by mouth once daily mirtazapine (Remeron Destiney-Tab) 15 MG disintegrating tablet Take 15 mg by mouth Nightly. 0 09/15/2023 Discontinued (Stop taking at discharge) 1 ml morphine sulfate 4 mg/ml cartridge (6 sources) Opioid Agonist Start: 023 End: take 2 mg intravenously every four hours as needed for pain and pain morphine injection 2 mg Start: 09-09-2023 End: 09-09-2023 morphine injection 4 mg 1 ml naloxone hydrochloride 0.4 mg/ml injection (2 sources) Opioid Antagonist Start: 09-14-2023 End: 09-15-2023 naloxone (Narcan) injection 0.4 mg ondansetron ODT (Zofran-ODT) disintegrating tablet 4 mg (2 sources) Start: 09-10-2023 End: 09-15-2023 take 1 tablet by mouth every eight hours as needed for nausea and vomiting ondansetron ODT (Zofran-ODT) disintegrating tablet 4 mg pantoprazole (ProtoNix) 40 mg in sodium chloride (PF) 0.9 % 10 mL injection (2 sources) Start: 09-10-2023 End: 09-15-2023 40 mg, IntraVENous, Administer over 2 Minutes, Daily before breakfast, First dose on 09/10/23 at 0700, Reconstitute with 10 ml NS. Vial expires 2 hrs after reconstitution. potassium chloride 20 meq powder for oral solution (4 sources) Start: 09-15-2023 End: 09-15-2023 potassium chloride (Klor-Con) packet 40 mEq Start: 09-11-2023 End: 09-11-2023 potassium chloride CR (Klor- Con M10) ER tablet 40 mEq sodium bicarbonate 650 mg or al tablet (2 sources) Start: 09-11-2023 End: 09-15-2023 sodium bicarbonate tablet 65 0 mg sodium chloride 0.111 meq/ml nasal solution (20 sources) Start: 09-13-2023 End: 09-15-2023 sodium chloride ([place]) 0.65 % nasal spray 2 spray Start: 09-10-2023 End: 09-10-2023 take 75 mL intravenously every hour 75 mL/hr, IntraVENous, Continuous, Starting on 09/10/23 at 0600, For 13 hours Start: 09-09-2023 End: 09-09-2023 sodium chloride 0.9 % bolus 1,000 mL Start: 08-21-2021 End: 11-20-2022 sodium chloride 0.9 % (flush ) 10 mL (BD POSIFLUSH) traZODone hydrochloride 100 mg oral tablet (20 sources) Serotonin Reuptake Inhibitor Start: 06-23-2021 End: 05-26-2022 traZODone (DESYREL) 100 mg tablet 200 mg daily at bedtime. 0 06/23/2021 05/26/2022 Discontinued Start: 08-05-2018 End: 10-15-2023 take 1 tablet by mouth once daily at bedtime traZODone (DESYREL) 100 mg tablet Indications: Insomnia, unspecified type Take 1 tablet by mouth daily at bedtime. 30 tablet 5 05/26/2022 Active Comment on above: 200 mg daily at bedt sherry. Take 1 tablet by nish th daily at bedtime. Problems Active Problems Problem Classification Problem Date Documented Da te Episodic/Chronic Allergic reactions (1 source) Inflammatory dermatosis; Translations: [Dermatitis, unspecified] Episodic Anxiety disorders (3 sources) Picking own skin; Translations: [Excoriation (skin-picking) disorder] Chronic Bacterial infection; unspecified site (1 source) Methicillin resistant Staphylococcus aureus infection; Translations: [Methicillin resistant Staphylococcus aureus infection, unspecified site] 02-07-2024 Episodic Chronic ulcer of skin (1 source) Skin ulcer; Translations: [Non-pressure chronic ulcer of skin of other sites limited to breakdown of skin] 02-07-2024 Chronic Coagulation and hemorrhagic disorders (13 sources) Thrombocytopenic disorder; Translations: [Thrombocytopenia, unspecified] Onset: 4 11-19-2023 Chronic Esophageal disorders (20 sources) Gastroesophageal reflux disease; Translations: [Gastro-esophageal reflux disease without esophagitis] Onset: 0 08-24-2010 Chronic Genitourinary symptoms and ill-defined conditions (1 source) Aryan hematuria; Translations: [Gross hematuria] 01-31-2024 Episodic Hepatitis (20 sources) Chronic viral hepatitis C; Translations: [Chronic hepatitis C] Onset: 8 10-12-2018 Chronic Intestinal obstruction without hernia (9 sources) Small bowel obstruction; Translations: [Unspecified intestinal obstruction, unspecified as to partial versus complete obstruction] Onset: 3 09-09-2023 Episodic Mood disorders (20 sources) Major depressive disorder; Translations: [Major depressive disorder, single episode, unspecified] Onset: 7 04-14-2017 Chronic Nausea and vomiting (1 source) Nausea and vomiting; Translations: [Nausea with vomiting, unspecified] 12-13-2023 Episodic Other aftercare (1 source) Admission statuses; Translations: [Encounter for other specified aftercare] Episodic Other gastrointestinal disorders (1 source) Other ascites; Translations: [Other ascites] Onset: 4 Episodic Other gastrointestinal disorders (1 source) Ascites; Translations: [Other ascites] 12-13-2023 Episodic Other injuries and conditions due to external causes (1 source) Open wound of skin; Translations: [Other injury of unspecified body region, initial encounter] 11-01-2023 Episodic Other liver diseases (15 sources) Cirrhosis of liver; Translations: [Unspecified cirrhosis of liver] Onset: 4 11-19-2023 Chronic Other lower respiratory disease (1 source) Dyspnea, unspecified; Translations: [Dyspnea, unspecified type] Onset: 4 Episodic Other nervous system disorders (1 source) Encephalopathy, unspecified; Translations: [Encephalopathy] Onset: 4 Chronic Other screening for suspected conditions (not mental disorders or infectious disease) (3 sources) Patient encounter status; Translations: [Encounter for screening mammogram for malignant neoplasm of breast] Episodic Other skin disorders (1 source) Acne vulgaris; Translations: [Acne vulgaris] Episodic Other skin disorders (1 source) Skin lesion; Translations: [Disorder of the skin and subcutaneous tissue, unspecified] 01-31-2024 Episodic Other upper respiratory infections (1 source) Acute upper respiratory infection; Translations: [Acute upper respiratory infection, unspecified] Episodic Skin and subcutaneous tissue infections (6 sources) Bacterial infection of skin; Translations: [Local infection of the skin and subcutaneous tissue, unspecified] Onset: 4 Episodic Spondylosis; intervertebral disc disorders; other back problems (20 sources) Low back pain; Translations: [Lumbago] Onset: 8 02-12-2008 Episodic Substance-related disorders (14 sources) Nicotine dependence; Translations: [Nicotine dependence, unspecified, uncomplicated] Onset: 4 11-20-2023 Chronic Substance-related disorders (5 sources) Substance abuse; Translations: [Other psychoactive substance use, unspecified, uncomplicated] Onset: 3 09-11-2023 Episodic Viral infection (1 source) Viral disease; Translations: [Viral infection, unspecified] Episodic Past or Other Problems Problem Classification Problem Date Documented Date Episodic/Chronic Abdominal pain (14 sources) Abdominal pain; Translations: [Unspecified abdominal pain] Onset: 11-18-2023 11-18-2023 Episodic Deficiency and other anemia (13 sources) Chronic anemia; Translations: [Anemia, unspecified] Onset: 11-19-2023 11-19-2023 Episodic Malaise and fatigue (20 sources) Physical deconditioning; Translations: [Other malaise] Onset: 12-10-2011 12-10-2011 Episodic Other circulatory disease (20 sources) Retroperitoneal hemorrhage; Translations: [Hemorrhage, not elsewhere classified] Onset: 08-05-2018 08-05-2018 Episodic Other connective tissue disease (20 sources) Myofascial pain; Translations: [Myalgia, other site] Onset: 12-10-2011 12-10-2011 Episodic Pneumonia (except that caused by tuberculosis or sexually transmitted disease) (13 sources) Community acquired pneumonia; Translations: [Pneumonia, unspecified organism] Onset: 11-19-2023 11-19-2023 Episodic Residual codes; unclassified (20 sources) Insomnia; Translations: [Insomnia, unspecified] Onset: 07-02-2009 07-02-2009 Episodic Residual codes; unclassified (20 sources) Tobacco user; Translations: [Tobacco use] Onset: 04-14-2017 04-14-2017 Episodic Respiratory failure; insufficiency; arrest (adult) (13 sources) Acute hypoxemic and hypercapnic respiratory failure; Translations: [Acute respiratory failure with hypoxia] Onset: 11-19-2023 11-19-2023 Episodic Septicemia (except in labor) (13 sources) Sepsis; Translations: [Sepsis, unspecified organism] Onset: 11-19-2023 11-19-2023 Episodic Sprains and strains (20 sources) Low back strain; Translations: [Strain of muscle, fascia and tendon of lower back, initial encounter] Onset: 12-10-2011 12-10-2011 Episodic Urinary tract infections (3 sources) Recurrent urinary tract infection; Translations: [Urinary tract infection, site not specified] Onset: 11-26-2023 11-26-2023 Episodic Results Test Name Value Interpretation Reference Range Facility .Auto Diffon 03-23-2024 Basophil, Absolute 0.0 10 3/mcL Normal 0.0-0.2 [facility] ([place]) Comment on above: Performed By: #### B MP, MORPH, GFR, CBC, ADIFF, MDW, ANEU #### [address] [address] Basophils/100 WBC (Bld) 0.4 % Normal 0.0-2.5 [facility] ([place]) Comment on above: Performed By: #### B MP, MORPH, GFR, CBC, ADIFF, MDW, ANEU #### [address] [address] Eosinophil, Absolute 0.3 10 3/mcL Normal 0.0-0.4 [facility] ([place]) Comment on above: Performed By: #### B MP, MORPH, GFR, CBC, ADIFF, MDW, ANEU #### [address] [address] Eosinophils/100 WBC (Bld) 3.8 % Normal 0.0-7.0 [facility] ([place]) Comment on above: Performed By: #### B MP, MORPH, GFR, CBC, ADIFF, MDW, ANEU #### [address] [address] Lymphocyte, Absolute 1.3 10 3/mcL Normal 0.8-3.9 [facility] ([place]) Comment on above: Performed By: #### B MP, MORPH, GFR, CBC, ADIFF, MDW, ANEU #### [address] [address] Lymphocytes/100 WBC (Bld) 19.3 % Normal 10.0-50.0 [facility] ([place]) Comment on above: Performed By: #### B MP, MORPH, GFR, CBC, ADIFF, MDW, ANEU #### [address] [address] Monocyte, Absolute 0.6 10 3/mcL Normal 0.2-1.0 [facility] ([place]) Comment on above: Performed By: #### B MP, MORPH, GFR, CBC, ADIFF, MDW, ANEU #### [address] [address] Monocytes/100 WBC (Bld) 9.1 % Normal 1.7-13.0 [facility] ([place]) Comment on above: Performed By: #### B MP, MORPH, GFR, CBC, LUIS BERTRAND, ANEU #### [place] [address] [place], [place] [address] Neutrophils/100 WBC (Bld) 67.4 % Normal 37.0-80.0 [facility] ([place]) Comment on above: Performed By: #### B MP, MORPH, GFR, CBC, LUIS BERTRAND, ANEU #### [address] [address] .GFRon 03-23-2024 GFR Non- 64 ml/min/1.73sqm Normal [facility] ([place]) Comment on above: Result Comment: GFR Population mean for , Non- Americans Ages 20-29 = 116 mL/min/1.73 sq.m. Ages 30-39 = 107 mL/min/1.73 sq.m. Ages 40-49 = 99 mL/min/1.73 sq.m. Ages 50-59 = 93 mL/min/1.73 sq.m. Ages 60-69 = 85 mL/min/1.73 sq.m. Ages 70+ = 75 mL/min/1.73 sq.m. Chronic Kidney Disease: Less than 60 mL/min/1.73 square meters End Stage Renal Disease: Less than 15 mL/min/1.73 square meters Performed By: #### B MP, MORPH, GFR, CBC, LUIS BERTRAND, ANEU #### [address] [place], [place] [address] GFR 77 ml/min/1.73sqm Normal [facility] ([place]) Comment on above: Result Comment: GFR Population mean for , Non- Americans Ages 20-29 = 116 mL/min/1.73 sq.m. Ages 30-39 = 107 mL/min/1.73 sq.m. Ages 40-49 = 99 mL/min/1.73 sq.m. Ages 50-59 = 93 mL/min/1.73 sq.m. Ages 60-69 = 85 mL/min/1.73 sq.m. Ages 70+ = 75 mL/min/1.73 sq.m. Chronic Kidney Disease: Less than 60 mL/min/1.73 square meters End Stage Renal Disease: Less than 15 mL/min/1.73 square meters Performed By: #### B MP, MORPH, GFR, CBC, ADIFF, MDW, ANEU #### [place] [id number] .MDWon 03-23-2024 Monocyte Distribution Width 26.42 High 0.00-20.00 [facility] ([place]) Comment on above: Result Comment: The predictive value of MDW for identifying sepsis in patients with hematological abnormalities has not been established Performed By: #### B MP, MORPH, GFR, CBC, ADIFF, W, ANEU #### [place] [address] .Morphon 03-23-2024 Platelet Estimate Decreased Normal [facility] ([place]) Comment on above: Performed By: #### B MP, MORPH, GFR, CBC, ADIFF, MDW, ANEU #### [place] [address] .NEUABSon 03-23-2024 Neutrophil, Absolute 4.6 10 3/mcL Normal 2.9-6.2 [facility] ([place]) Comment on above: Performed By: #### B MP, MORPH, GFR, CBC, ADIFF, MDW, ANEU #### [place] [id number] Melody 03-23-2024 Ammonia (P) [Moles/Vol] 42 umol/L High 11-32 [facility] ([place]) Comment on above: Performed By: #### A MM ####[place] [address] BMPon 03-23-2024 BUN/Creatinine Ratio 14 ratio Normal 7-27 [facility] ([place]) Comment on above: Performed By: #### B MP, MORPH, GFR, CBC, ADIFF, MDW, ANEU #### [place] [address] Calcium [Mass/Vol] 8.4 mg/dL Normal 8.4-10.2 [facility] ([place]) Comment on above: Performed By: #### B MP, MORPH, GFR, CBC, LUIS BERTRAND, ANEU #### [address] [address] Chloride [Moles/Vol] 106 mmol/L Normal 98-107 [facility] ([place]) Comment on above: Performed By: #### B MP, MORPH, GFR, CBC, ELZA, LUIS, ANEU #### [address] [address] CO2 [Moles/Vol] 24 mmol/L Normal 22-29 [facility] ([place]) Comment on above: Performed By: #### B MP, MORPH, GFR, CBC, LUIS BERTRAND, ANEU #### [address] [address] Creatinine [Mass/Vol] 0.93 mg/dL Normal 0.55-1.02 [facility] ([place]) Comment on above: Performed By: #### B MP, MORPH, GFR, CBC, LUIS BERTRAND, ANEU #### [address] [address] Electrolyte Balance 8.0 mEq/L Normal 4.0-15.0 [facility] ([place]) Comment on above: Performed By: #### B MP, MORPH, GFR, CBC, LUIS BERTRAND, ANEU #### [address] [address] Glucose [Mass/Vol] 100 mg/dL Normal 70-105 [facility] ([place]) Comment on above: Performed By: #### B MP, MORPH, GFR, CBC, LUIS BERTRAND, ANEU #### [address] [address] Potassium [Moles/Vol] 3.6 mmol/L Normal 3.5-5.1 [facility] ([place]) Comment on above: Performed By: #### B MP, MORPH, GFR, CBC, LUIS BERTRAND, ANEU #### [address] [address] Sodium [Moles/Vol] 138 mmol/L Normal 136-145 [facility] ([place]) Comment on above: Performed By: #### B MP, MORPH, GFR, CBC, LUIS BERTRAND, ANEU #### [address] [address] Urea nitrogen [Mass/Vol] 13 mg/dL Normal 7-18 [facility] ([place]) Comment on above: Performed By: #### B MP, MORPH, GFR, CBC, LUIS BERTRAND, ANEU #### [address] [address] CBCon 03-23-2024 Erythrocyte distribution width (RBC) [Ratio] 20.9 % High 11.5-14.5 [facility] ([place]) Comment on above: Performed By: #### B MP, MORPH, GFR, CBC, LUIS BERTRAND, ANEU #### [address] [address] Hematocrit (Bld) [Volume fraction] 33.8 % Low 37.0-47.0 [facility] ([place]) Comment on above: Performed By: #### B MP, MORPH, GFR, CBC, LUIS BERTRAND, ANEU #### [address] [address] Hgb 11.7 G/dL Low 12.0-16.0 [facility] ([place]) Comment on above: Performed By: #### B MP, MORPH, GFR, CBC, LUIS BERTRAND, ANEU #### [address] [address] MCH (RBC) [Entitic mass] 29.4 pg Normal 27.0-31.2 [facility] ([place]) Comment on above: Performed By: #### B MP, MORPH, GFR, CBC, LUIS BERTRAND, ANEU #### [address] [address] MCHC 34.5 G/dL Normal 33.0-37.0 [facility] ([place]) Comment on above: Performed By: #### B MP, MORPH, GFR, CBC, ADIFF, MDW, ANEU #### [address] [address] MCV (RBC) [Entitic vol] 85.3 fL Normal 80.0-94.0 [facility] ([place]) Comment on above: Performed By: #### B MP, MORPH, GFR, CBC, ADIFF, MDW, ANEU #### [place] [address] Platelet 64 10 3/mcL Low 130-400 [facility] ([place] Comment on above: Performed By: #### B MP, MORPH, GFR, CBC, ADIFF, MDW, ANEU #### [place] [address] Platelet mean volume (Bld) [Entitic vol] 8.2 fL Normal 7.4-10.4 [facility] ([place]) Comment on above: Performed By: #### B MP, MORPH, GFR, CBC, ADIFF, MDW, ANEU #### [place] [id number] RBC 3.97 10 6/mcL Low 4.20-5.40 [facility] ([place]) Comment on above: Performed By: #### B MP, MORPH, GFR, CBC, ADIFF, MDW, ANEU #### [place] [address] WBC 6.7 10 3/mcL Normal 4.6-10.8 [facility] ([place]) Comment on above: Performed By: #### B MP, MORPH, GFR, CBC, ADIFF, MDW, ANEU #### [address] [address] [address] SOFT TISSUE NECK W/ CONTR David 03-23-2024 CT SOFT TISSUE NECK W/ CONTRAST ORIGINAL EXAMINATION: CT neck with intravenous contrast TECHNIQUE: CT of the neck was performed following the uneventful administration of Omnipaque 300 intravenous contrast. Axial images were obtained through the neck with multiplanar reformats. Low dose CT acquisition technique included one of the following options: 1. Automated exposure control, 2. Adjustment of the MA and/or KV according to patient size, or 3. Use of iterative reconstruction. DICOM images are available. COMPARISON: None. HISTORY: ORDERING SYSTEM PROVIDED HISTORY: Reason for Exam: Difficulty swallowing, painful chin, rule out abscess FINDINGS: Soft tissues: Subcutaneous induration just anterior and caudal to the central mandible is identified (axial image 49 series 2 and sagittal image 39 series 602). No discrete abscess or drainable fluid collection is present. There are adjacent subcentimeter reactive lymph nodes. Aerodigestive tract: No primary lesion identified within the nasopharynx, oropharynx, hypopharynx, larynx, and proximal trachea. Salivary glands: Unremarkable. Thyroid: Unremarkable. Lymph nodes : There are non-specific scattered sub-centimeter lymph nodes in the neck bilaterally. No pathologically enlarged or morphologically suspicious adenopathy. Vessels: Unremarkable. Bones: No acute osseous pathology. Straightening of the normal cervical lordosis. Paranasal sinuses: Clear. Rightward nasal septal deviation. Visualized lung apices: Clear. Visualized brain parenchyma: No acute pathology. Additional comment: None. IMPRESSION: Subcutaneous induration just anterior and caudal to the central mandible without a discrete abscess or drainable fluid collection. Interpreted by: Jt Mccullough MD Preliminary Report By: Jt Mccullough MD Electronically signed By Jt Mccullough MD Dictated Date: 03/23/2024 5:00:42 PM Prelim Date: 03/23/2024 5:09:20 PM Sign Date: 03/23/2024 5:09:20 PM Ordering Provider: HAYDER Lagos [facility] ([place]) LABORATORYOrdered By: SYSTEM SYSTEM on 03-23-2024 Ammonia (P) [Moles/Vol] 42 umol/L High 11 - 32 umol/L AO ADM SS Basophil, Absolute 0.0 103/mcL Normal 0.0 - 0.2 10^3/mcL AO Workflow SS Basophils/100 WBC (Bld) 0.4 % Normal 0.0 - 2.5 % AO Workflow SS Calcium [Mass/Vol] 8.4 mg/dL Normal 8.4 - 10. 2 mg/dL AO ADM SS Chloride [Moles/Vol] 106 mmol/L Normal 98 - 10 7 mmol/L AO ADM SS CO2 [Moles/Vol] 24 mmol/L Normal 22 - 29 mmol/L AO ADM SS Creatinine [Mass/Vol] 0.93 mg/dL Normal 0.55 - 1.02 mg/dL AO ADM SS Electrolyte Balance 8.0 mEq/L Normal 4.0 - 15 .0 mEq/L AO ADM SS Eosinophil, Absolute 0.3 103/mcL Normal 0.0 - 0 .4 10^3/mcL AO Workflow SS Eosinophils/100 WBC (Bld) 3.8 % Normal 0.0 - 7.0 % AO Workflow SS Erythrocyte distribution width (RBC) [Ratio] 20.9 % High 11.5 - 14.5 % AO Workflow SS GFR/1.73 sq M.predicted among blacks MDRD (S/P/Bld) [Vol rate/Area] 77 ml/min/1.73sqm Invalid Interpretation Code AO Chemistry S Comment on above: Interpretive Data: GFR Population mean for , Non- Americans Ages 20-29 = 116 mL/min/1.73 sq.m. Ages 30-39 = 107 mL/min/1.73 sq.m. Ages 40-49 = 99 mL/min/1.73 sq.m. Ages 50-59 = 93 mL/min/1.73 sq.m. Ages 60-69 = 85 mL/min/1.73 sq.m. Ages 70+ = 75 mL/min/1.73 sq.m. Chronic Kidney Disease: Less than 60 mL/min/1.73 square meters End Stage Renal Disease: Less than 15 mL/min/1.73 square meters GFR/1.73 sq M.predicted among non-blacks MDRD (S/P/Bld) [Vol rate/Area] 64 ml/min/1.73sqm Invalid Interpretation Code AO Chemistry S Comment on above: Interpretive Data: GFR Population mean for , Non- Americans Ages 20-29 = 116 mL/min/1.73 sq.m. Ages 30-39 = 107 mL/min/1.73 sq.m. Ages 40-49 = 99 mL/min/1.73 sq.m. Ages 50-59 = 93 mL/min/1.73 sq.m. Ages 60-69 = 85 mL/min/1.73 sq.m. Ages 70+ = 75 mL/min/1.73 sq.m. Chronic Kidney Disease: Less than 60 mL/min/1.73 square meters End Stage Renal Disease: Less than 15 mL/min/1.73 square meters Glucose [Mass/Vol] 100 mg/dL Normal 70 - 105 mg/dL AO ADM SS Hematocrit (Bld) [Volume fraction] 33.8 % Low 37.0 - 47.0 % AO Workflow SS Hemoglobin (Bld) [Mass/Vol] 11.7 G/dL Low 12.0 - 16.0 G/dL AO Workflow SS Lymphocyte, Absolute 1.3 103/mcL Normal 0.8 - 3 .9 10^3/mcL AO Workflow SS Lymphocytes/100 WBC (Bld) 19.3 % Normal 10.0 - 50.0 % AO Workflow SS MCH (RBC) [Entitic mass] 29.4 pg Normal 27.0 - 31.2 pg AO Workflow SS MCHC 34.5 G/dL Normal 33.0 - 37.0 G/dL AO Workflow SS MCV (RBC) [Entitic vol] 85.3 fL Normal 80.0 - 94.0 fL AO Workflow SS Monocyte distribution width Auto (Bld) [Entitic vol] 26.42 1 High 0.00 - 20.00 AO Workflow SS Comment on above: Result Comment: The predictive value of MDW for identifying sepsis in patients with hematological abnormalities has not been established Monocyte, Absolute 0.6 103/mcL Normal 0.2 - 1.0 10^3/mcL AO Workflow SS Monocytes/100 WBC (Bld) 9.1 % Normal 1.7 - 13.0 % AO Workflow SS Neutrophil, Absolute 4.6 103/mcL Normal 2.9 - 6 .2 10^3/mcL AO Workflow SS Neutrophils/100 WBC (Bld) 67.4 % Normal 37.0 - 80.0 % AO Workflow SS Platelet Estimate Decreased *NA* (03/23/24 4:32 PM) Invalid Interpretation Code AO Workflow SS Platelet mean volume (Bld) [Entitic vol] 8.2 fL Normal 7.4 - 10.4 fL AO Workflow SS Platelets (Bld) [#/Vol] 64 103/mcL Low 130 - 400 10^3/mcL AO Workflow SS Potassium [Moles/Vol] 3.6 mmol/L Normal 3.5 - 5.1 mmol/L AO ADM SS RBC (Bld) [#/Vol] 3.97 106/mcL Low 4.20 - 5.40 10^6/mcL AO Workflow SS Sodium [Moles/Vol] 138 mmol/L Normal 136 - 145 mmol/L AO ADM SS Urea nitrogen [Mass/Vol] 13 mg/dL Normal 7 - 18 mg/dL AO ADM SS Urea nitrogen/Creatinine [Mass ratio] 14 ratio Normal 7 - 27 ratio AO ADM SS WBC (Bld) [#/Vol] 6.7 103/mcL Normal 4.6 - 10.8 10^3/mcL AO Workflow SS No Panel Informationon 03-23 Microscopic examination of blood, culture Culture has been received in lab and is no growth to date. Routine cultures are held for 5 days. [facility] Work Phone: CNOVon 02-07-2024 CNOV Office Visit (AMDERM ) CAROLINA HIGHTOWER ([id number]) 1975 F Date Time Provider Department 02/07/24 9:00 AM MELISA MAIN AMDERM During your visit today, we recorded the following information about you: Melisa Main MD 02/07/2024 1:59 PM Signed CC: Patient presents with: Rash: Chin /left foot HPI: 48 year old female patient here for: Recurrent pimple and ulceration on chin Cultures + for MRSA in past Patient notes area starts as a pimple, she cannot help but manipulate it Becomes an ulcer Eventually heals Then process recurs Notes she needs someone to help her stop picking Admits to not being able to stop picking it Notes anxiety not well controlled, per patient has h/o of addiction and her doctor does not want to give her xanax Notes she has tried buspar Has appointment with psych in several months Notes sore on side stitcher Was walking in [place] Something poked it Tender Not keeping covered Taking doxycycline for wound on chin that grew MRSA Derm History: Denies personal history of skin cancer Allergies: ALLERGIES Allergen Reactions Aspirin UNCERTAIN =CHILDHOOD Bupropion Other: See Comments Codeine Rash Prednisone Rash Wellbutrin [Bupropi* Other: See Comments seizures Medications: Current Outpatient Medications Medication Sig Dispense Refill doxycycline (VIBRA-TABS) 100 mg tablet Take 1 tablet by mouth two times a day for 10 days. 20 tablet 0 cephALEXin (KEFLEX) 500 mg capsule Take 1 capsule by mouth four times daily for 7 days. 28 capsule 0 ibuprofen (MOTRIN) 600 mg tablet Take 1 tablet by mouth every 6 hours as needed for pain. 30 tablet 0 mupirocin (BACTROBAN) 2 % ointment Apply to affected area three times a day. 30 g 0 hydrOXYzine HCl (ATARAX) 25 mg tablet Take 1 tablet by mouth every 6 hours as needed for itching/rash. 20 tablet 0 ferrous sulfate 325 mg (65 mg iron) tablet Take 1 tablet by mouth once daily. 30 tablet 5 ascorbic acid, vitamin C, (VITAMIN C) 500 mg tablet Take 1 tablet by mouth once daily. 30 tablet 5 gabapentin (NEURONTIN) 100 mg capsule Take 1 capsule by mouth two times a day for 180 days. 60 capsule 5 spironolactone (ALDACTONE) 100 mg tablet Take 1 tablet by mouth once daily. nicotine (NICODERM) 21 mg/24 hr Apply 1 Patch as directed as directed. furosemide (LASIX) 40 mg tablet Take 1 tablet by mouth once daily. ondansetron orally disintegrating (ZOFRAN ODT) 4 mg disintegrating tablet Take 1 tablet by mouth every 6 hours as needed for nausea/vomiting. 20 tablet 5 albuterol HFA (PROAIR HFA) 90 mcg/actuation inhaler Inhale 2 Puffs as instructed every 4 hours as needed. 1 Each 1 spironolactone (ALDACTONE) 50 mg tablet Take 1 tablet by mouth once daily. (Patient not taking: Reported on 12/13/2023) [address] (PROTONIX) 40 mg tablet Take 1 tablet by mouth twice daily before meals. Take on empty stomach, 1/2 hr before meal. 60 tablet 11 lactulose (DUPHALAC, CONSTULOSE) 10 gram/15 mL solution furosemide (LASIX) 20 mg tablet Take 1 tablet by mouth once daily. (Patient not taking: Reported on 12/13/2023) 30 tablet 2 No current facility-administered medications for this visit. FH: Denies family history of skin cancer PHYSICAL EXAM: Skin examination including face, left foot Skin findings: Chin with angulated clean ulceration with mary borders Left dorsal foot, left great toe MTP, left 4th dorsal toe with erythematous plaques with overlying superficial crusted eschars over superficially ulcerated skin ASSESSMENT/PLAN: 1. Skin ulcer, limited to breakdown of skin (HCC) 2. Excoriation (skin-picking) disorder 3. MRSA (methicillin resistant Staphylococcus aureus) Self inflicted ulceration, recurrent. Patient states preceding pimple as trigger, not present today. Advised patient take photos of how this evolves over time. Encouraged patient to stop picking. Apply mupirocin twice daily until healed, keep covered with bandage. Keep appointment with psych for management of anxiety and skin picking disorder. 4. Local infection of skin and subcutaneous tissue Left foot. Complete doxycycline 100mg BID x 10 days as prescribed. Start mupiricin BID until healed, keep covered with bandage. Consider podiatry referral if does not heal. Patient concerned that infection is in the bone. I have very low suspicion for this, ulcerations are superficial with mild surrounding cellulitis. Must be carefully monitored for resolution. Return in 2-3 weeks, sooner as needed The patient is seen and examined by Dr. Main and the following reflects his/her service. Scribed by Halina Valencia MA / Stephanie Ch MA I agree with the Chief Complaint, ROS, and Past Histories independently gathered by the clinical system support administrator and the remaining scribed note accurately describes my personal service to the patient. Melisa Guerrero (more content not included)... Normal [facility] 02-02-2024 [facility] Telephone ([place]) CAROLINA HIGHTOWER ([id number]) 1975 F Date Time Provider Department 02/02/24 ASHANTI SQUIRES During your visit today, we recorded the following information about you: Ashanti Squires PA-C 02/02/2024 1:47 PM Signed Please let patient know that her culture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 [K*11/19/2023 Severe sepsis (HCC) [A41.9, R65.20] 11/19/2023 Chronic anemia [D64.9] 11/19/2023 Thrombocytopenia (HCC) [D69.6] 11/19/2023 Nicotine use disorder, F17.2 [F17.200] 11/20/2023 Prescriptions ordered this encounter Disp Refills Start End NITROFURANTOIN MONOHYDRATE AND MACROCR* 14 c* 0 11/28/2023 12/05/2023 Route: ORAL Sig: Take 1 capsule by mouth two times a day with meals for 7 days. Encounter Status:Closed by MELISA VICK MA on 11/28/23 [facility] CNOVon 11-26-2023 CNOV Office Visit (FAMPWS ) CAROLINA HIGHTOWER ([id number]) 1975 F Date Time Provider Department 11/26/23 10:20 AM DACIA ACOSTAPWS During your visit today, we recorded the following information about you: Pulse Respiration Blood pressure Weight 90/minute 20/minute 128/70 83.4 kg Dacia Acosta MD 11/26/2023 11:03 AM Signed Transitional Care Management [facility] Eligibility Documentation Program: Transitional Care Management Status: Pending (at least 2 unsuccessful call attempts) Start Date: 11/23/2023 Responsible Staff: Priscilla Rodriguez RN Discharge date: 11/23/2023 (Program start) Date of initial contact: Initial contact Target status: No contact; Completed at least 2 attempts within 2 business days post-discharge Provider Documentation Carolina Hightower is a 48 year old female here today for a follow up from recent hospitalization. I have reviewed the patient's hospital course including discharge summary, discharge medications , follow up needs, and labs (notable for elevated WBC, anemia, thrombocytopenia) with the patient. HPI History reviewed. Pt here today for a 7 day [facility] Hospital follow up. Pt admitted into [facility] on 11/18/23 for abdominal pain and distention. She was discharged on 11/23/23. Pt here today for a follow up. Pt states that she's messed up on medication due to her mental health issues, cirrhosis of the liver and Hep C. She's confused on what to take, when and how. This is why she wanted to make an appt. She's not taken any medication other then her psych meds. States that she doesn't like her Psychiatrist and wants to switch, does like them. Pt states she does not know what she's taking, she was previously on Buspar 10 mg bid, Mirtazapine 15 mg at bedtime and Nadolol 20 mg once daily. Pt was d/c home with Hydroxyzine 25 mg 1 tab po every 8 hours. Pt reports that her stomach is having a lot of issues, this is her worst issue. Reports she feels like she could just vomit. Is prescribed Lactulose 10 gram/15 mL, Zofran 4 mg and Protonix 20 mg bid. States she has not f/u with GI in a while, but has an appt Dr. Porras at the end of this month. Breathing is very difficult. Pt had acute hypoxic hypercapnic respiratory failure. Pt using Albuterol Inhaler, Aldactone 50 mg one daily and states she uses Lasix 20 mg once daily. Pt states that she had a bladder infection in the past month, unsure if resolved. Still having cramps and discomfort. Was treated with Cephalexin. Also tested positive for Flu B 2-3 weeks ago, may have lingering effects of this. FINAL DIAGNOSIS: SBP, community-acquired pneumonia, sepsis, acute hypoxic respiratory failure HOSPITAL COURSE: 48 year old female who presented to an outlying emergency department yesterday, November 17, 2023, for further evaluation of abdominal pain and distention. Patient has known cirrhosis. Recently, she has been evaluated multiple times at [facility] for similar symptoms. Paracentesis has been performed Upon arrival to the emergency department yesterday the patient was found to be hemodynamically stable. Laboratory workup was largely unrevealing. Of important note, an ammonia level was unable to be obtained at that facility. Abdominal imaging was not obtained either. During hospital stay, patient would be evaluated by infectious disease for concern for SBP. Patient would be continued on IV Rocephin for 7 days total treatment during hospitalization. Patient would also episode of acute hypoxic hypercapnic respiratory failure that improved with diuresis and AVAPS therapy. Patient will be started on Aldactone at discharge. Patient also will continue prednisone taper at discharge. Patient will also be started on hydroxyzine for anxiety and iron replacement. Follow up with PCP in one week. Vital signs were stable on discharge. Patient understood and agreed with discharge plan. Plan *Suspected SBP, continue IV Rocephin 1 g daily, patient received azithromycin x 1, ID note was reviewed. Patient still have leukocytosis possibly secondary to taper down steroids, continue prophylactic PPI *Will add Senokot for laxatives *Review blood work showed thrombocytopenia and anemia but leukocytosis well *Check CBC BMP magnesium for tomorrow *I discussed the case with the patient, nursing staff and case management Plan *Discussed the case with ID, at this time we will finish the IV Rocephin tomorrow, patient had paracentesis in [facility] without any significant results, he had paracentesis yesterday results are undetermined. Therefore 1 more day of IV Rocephin day tomorrow and then she finished antibiotics, continuing meantime Taper down steroids and prophylactic PPI *Patient is started having bowel movement *Review blood work results unremarkable except for HANDH low but stable current hemoglobin (more content not included)... Normal [facility] Urinalysis complete panel (U )on 11-26-2023 Bacteria LM.HPF (Urine sed) [#/Area] Negative Normal Negative [facility] Comment on above: Order Comment: Speci men Type: URINE SPECIMENOrdering Facility: [facility] Address: [facility] [place] [address] Performed By: #### 2 4356-8 ####[facility] LABCLIA [id number] [place] [address] [place] Bilirubin Ql (U) Negative Normal Negative [facility] Comment on above: Order Comment: Speci men Type: URINE SPECIMENOrdering Facility: [facility] Address: [address] [place] [address] Performed By: #### 2 4356-8 ####[facility] LABCLIA [id number] [place] [address] [place] CALCIUM OXALATE CRYSTALS (UA) Few Abnormal None Seen [facility] Comment on above: Order Comment: Speci men Type: URINE SPECIMENOrdering Facility: [facility] Address: [address] [place] [address] Performed By: #### 2 4356-8 ####[facility] LABCL[facility] [id number] [place] [address] [place] Clarity (Unsp spec) Cloudy Abnormal Clear [facility] Comment on above: Order Comment: Speci men Type: URINE SPECIMENOrdering Facility: [facility] Address: [address] [place] [address] Performed By: #### 2 4356-8 ####[facility]CL[facility] [id number] [place] [address] [place] Color (U) Dark Yellow Abnormal Yellow [facility] Comment on above: Order Comment: Speci men Type: URINE SPECIMENOrdering Facility: [facility] Address: [address] [place] [address] Performed By: #### 2 4356-8 ####[facility] [id number] [place] [address] [place] Epithelial cells LM.HPF (Urine sed) [#/Area] Few Normal [facility] Comment on above: Order Comment: Speci men Type: URINE SPECIMENOrdering Facility: [facility] Address: [address] [place] [address] Performed By: #### 2 4356-8 ####[facility]CL[facility] [id number] [place] [address] [place] Glucose Test strip (U) [Mass/Vol] Negative Normal Negative [facility] Comment on above: Order Comment: Speci men Type: URINE SPECIMENOrdering Facility: [facility] Address: [address] [place] [address] Performed By: #### 2 4356-8 ####[facility] [id number] [place] [address] [place] Hemoglobin Ql (U) 3+ Abnormal Negative [facility] Comment on above: Order Comment: Speci men Type: URINE SPECIMENOrdering Facility: [facility] Address: [address] [place] [address] Performed By: #### 2 4356-8 ####[facility]CL[facility] [id number] [place] [address] [place] Hyaline casts (Urine sed) [#/Area] 1-3 /LPF Abnormal 0 /LPF [facility] Comment on above: Order Comment: Speci men Type: URINE SPECIMENOrdering Facility: [facility] Address: [address] [place] [address] Performed By: #### 2 4356-8 ####[facility] [id number] [place] [address] [place] Ketones Ql (U) Negative Normal Negative [facility] Comment on above: Order Comment: Speci men Type: URINE SPECIMENOrdering Facility: [facility] Address: [address] [place] [address] Performed By: #### 2 4356-8 ####[facility] [id number] [place] [address] [place] Leukocyte esterase Test strip Ql (U) Trace Abnormal Negative [facility] Comment on above: Order Comment: Speci men Type: URINE SPECIMENOrdering Facility: [facility] Address: [address] [place] [address] Performed By: #### 2 4356-8 ####[facility] [id number] [place] [address] [place] Nitrite Ql (U) Negative Normal Negative [facility] Comment on above: Order Comment: Speci men Type: URINE SPECIMENOrdering Facility: [facility] Address: [address] [place] [address] Performed By: #### 2 4356-8 ####[facility]CL[facility] [id number] [place] [address] [place] pH (U) 6.0 [pH] Normal <8.5 [facility] Comment on above: Order Comment: Speci men Type: URINE SPECIMENOrdering Facility: [facility] Address: [address] [place] [address] Performed By: #### 2 4356-8 ####[facility] [id number] [place] [address] [place] Protein (U) [Mass/Vol] Trace Abnormal Negative [facility] Comment on above: Order Comment: Speci men Type: URINE SPECIMENOrdering Facility: [facility] Address: [address] [place] [address] Performed By: #### 2 4356-8 ####[facility]CL[facility] [id number] [place] [address] [place] RBC LM.HPF (Urine sed) [#/Area] 11-20 /HPF Abnormal 0-2 /HPF [facility] Comment on above: Order Comment: Speci men Type: URINE SPECIMENOrdering Facility: [facility] Address: [address] [place] [address] Performed By: #### 2 4356-8 ####[facility] [id number] [place] [address] [place] Specific gravity (U) [Rel density] 1.027 Normal 1.005-1.03 0 [facility] Comment on above: Order Comment: Speci men Type: URINE SPECIMENOrdering Facility: [facility] Address: [address] [place] [address] Performed By: #### 2 4356-8 ####[facility] [id number] [place] [address] [place] Urobilinogen Ql (U) 1.0 EU/dL Normal 0.2-1.0 EU/dL [facility] Comment on above: Order Comment: Speci men Type: URINE SPECIMENOrdering Facility: [facility] Address: [address] [place] [address] Performed By: #### 2 4356-8 ####[facility] [id number] [place] [address] [place] WBC LM.HPF (Urine sed) [#/Area] /[HPF] Abnormal 0-5 /HPF [facility] Comment on above: Order Comment: Speci men Type: URINE SPECIMENOrdering Facility: [facility] Address: [address] [place] [address] Performed By: #### 2 4356-8 ####[facility] [id number] [place] [address] [place] Urinalysis complete pnl Uron 11-26-2023 Urinalysis complete panel (U) COLOR: Dark Yellow CLARITY: Cloudy GLUCOSE, URINE: Negative BILIRUBIN, URINE: Negative KETONES, URINE: Negative SPECIFIC GRAVITY, UR: 1.027 HEMOGLOBIN/BLOOD, UR: 3+ PH, URINE: 6.0 PROTEIN, URINE: Trace UROBILINOGEN: 1.0 EU/dL NITRITES: Negative LEUKEST: Trace WBC, URINE: >20 /HPF RBC, URINE: 11-20 /HPF BACTERIA: Negative SQUAMOUS EPITHELIAL CELLS: Few HYALINE CASTS: 1-3 /LPF CALCIUM OXALATE CRYSTALS (UA): Few ORGANISM ID: 1 50,000-<100,000 CFU/ml Vancomycin resistant Enterococcus faecium Cephalosporins, clindamycin, and TMP-SMX are not effective for the treatment of enterococcal infections. 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) ------ ANTIBIOTIC INTERPRETATION SANDI STATUS REFERENCE RANGE ------ Ampicillin R >8 F Susceptible <=8 , Resistant >8 Vancomycin R >16 F Susceptible <=4 , Intermediate >4 , Resistant >16 Daptomycin S 2 F Susceptible <=4 , Resistant >4 Enterococcus faecium susceptibility to daptomycin was determined with the understanding that the drug would be dosed at 8-12 mg/kg per 24 hours. Linezolid S 2 F Susceptible <=2 , Intermediate >2 , Resistant >4 Levofloxacin R >4 F Susceptible <=2 , Intermediate >2 , Resistant >4 Abnormal [facility] Comment on above: Order Comment: Speci men Type: URINE SPECIMENOrdering Facility: [facility] Address: [address] [place] [address] Performed By: #### 2 4356-8 ####[facility]CL[facility] [id number] [facility] [id number] [address] [place] Basic metabolic 2000 panelon 11-23-2023 Anion gap [Moles/Vol] mmol/L Low 5-16 [facility] Comment on above: Order Comment: Speci men Type: BLOOD SPECIMENOrdering Facility: [facility] Address: [address] [place] [address] Performed By: #### 2 4321-2, ####[facility] LABORATORYCLIA [id number] [place] [id number] [place] Calcium [Mass/Vol] 9.3 mg/dL Normal 8.5-10.5 [facility] Comment on above: Order Comment: Speci men Type: BLOOD SPECIMENOrdering Facility: [facility] Address: [address] [place] [address] Performed By: #### 2 4321-2, ####[facility] LABORATORYCLIA [id number] [place] [id number] [place] Chloride [Moles/Vol] 107 mmol/L Normal 98-107 [facility] Comment on above: Order Comment: Speci men Type: BLOOD SPECIMENOrdering Facility: [facility] Address: [address] [place] [address] Performed By: #### 2 4321-2, ####[facility] LABORATORYCLIA [id number] [place] [id number] [place] CO2 [Moles/Vol] 28 mmol/L Normal 21-32 [facility] Comment on above: Order Comment: Speci men Type: BLOOD SPECIMENOrdering Facility: [facility] Address: [address] [place] [address] Performed By: #### 2 4321-2, ####[facility] LABORATORYCLIA [id number] [place] [id number] [place] Creatinine [Mass/Vol] 0.78 mg/dL Normal 0.51-0.95 [facility] Comment on above: Order Comment: Speci men Type: BLOOD SPECIMENOrdering Facility: [facility] Address: [address] [place] [address] Result Comment: Tamie ents receiving either N-Acetylcysteine (NAC) or Metamizole prior to venipuncture, may have falsely depressed results. Performed By: #### 2 4321-2, 13618-7 ####[facility] LABORATORYCLIA [id number] [place] [id number] [place] Creatinine and Glomerular filtration rate.predicted panel (S/P/Bld) 93 mL/min/1.73m??? Normal >=60 [facility] Comment on above: Order Comment: Cole lamas Type: BLOOD SPECIMENOrdering Facility: [facility] Address: [address] [place] [address] Result Comment: Connie mated Glomerular Filtration Rate (eGFR) is calculated using the 2020 CKD-EPI creatinine equation. This equation utilizes serum creatinine, sex, and age as parameters. The creatinine assay has traceable calibration to isotope dilution-mass spectrometry. Refer to KDIGO guidelines for clinical interpretation. In patients with unstable renal function, e.g. those with acute kidney injury, the eGFR may not accurately reflect actual GFR. Performed By: #### 2 4321-2, 64702-9 ####[facility] LABORATORYCLIA [id number] [place] [address] [place] Glucose [Mass/Vol] 95 mg/dL Normal 70-100 [facility] Comment on above: Order Comment: Cole lamas Type: BLOOD SPECIMENOrdering Facility: [facility] Address: [address] [place] [address] Result Comment: The [place] [employer] (ADA) provides guidance for cutoff values for fasting glucose and random glucose. The ADA defines fasting as no caloric intake for at least 8 hours. Fasting plasma glucose results between 100 to 125 mg/dL indicate increased risk for diabetes (prediabetes). Fasting plasma glucose results greater than or equal to 126 mg/dL meet the criteria for diagnosis of diabetes. In the absence of unequivocal hyperglycemia, results should be confirmed by repeat testing. In a patient with classic symptoms of hyperglycemia or hyperglycemic crisis, random plasma glucose results greater than or equal to 200 mg/dL meet the criteria for diagnosis of diabetes. Reference: Standards of Medical Care in Diabetes 2016, [place] [employer]. Diabetes Care. 2016.39(Suppl 1). Results may be falsely elevated after the administration of Sulfapyridine. Results may be falsely depressed after the administration of Sulfasalazine. Performed By: #### 2 432-2, ####[facility] LABORATORYCLIA [id number] [place] [id number] [place] Potassium [Moles/Vol] 4.2 mmol/L Normal 3.5-5.1 [facility] Comment on above: Order Comment: Speci men Type: BLOOD SPECIMENOrdering Facility: [facility] Address: [address] [place] [address] Performed By: #### 2 4322, ####[facility] LABORATORYCLIA [id number] [place] [id number] [place] Sodium [Moles/Vol] 137 mmol/L Normal 136-145 [facility] Comment on above: Order Comment: Speci men Type: BLOOD SPECIMENOrdering Facility: [facility] Address: [address] [place] [address] Performed By: #### 2 4320-, ####[facility] LABORATORYCLIA [id number] [place] [address] [place] Urea nitrogen [Mass/Vol] 18 mg/dL Normal 7-26 [facility] Comment on above: Order Comment: Speci men Type: BLOOD SPECIMENOrdering Facility: [facility] Address: [address] [place] [address] Performed By: #### 2 2, ####[facility] LABORATORYCLIA [id number] [place] [id number] [place] CBC W Auto Differential pane l (Bld)on 11-23-2023 Anisocytosis Ql (Bld) Present Normal [facility] Comment on above: Order Comment: Speci men Type: BLOOD SPECIMENOrdering Facility: [facility] Address: [address] [place] [address] Performed By: #### 5 7021-8 ####[facility] LABORATORYCLIA [id number] [place] [address] [place] Band form neutrophils/100 WBC (Bld) 1.0 % Normal [facility] Comment on above: Order Comment: Speci men Type: BLOOD SPECIMENOrdering Facility: [facility] Address: [address] [place] [address] Performed By: #### 5 7021-8 ####[facility] LABORATORYCLIA [id number] [place] [address] [place] Basophils (Bld) [#/Vol] 0.00 10*3/uL Normal <0.11 [facility] Comment on above: Order Comment: Speci men Type: BLOOD SPECIMENOrdering Facility: [facility] Address: [address] [place] [address] Performed By: #### 5 7021-8 ####[facility] LABORATORYCLIA [id number] [address] [place] Basophils/100 WBC (Bld) 0.0 % Normal [facility] Comment on above: Order Comment: Speci men Type: BLOOD SPECIMENOrdering Facility: [facility] Address: [address] [place] [address] Performed By: #### 5 7021-8 ####[facility] LABORATORYCLIA [id number] [place] [address] [place] Differential cell count method Nom (Bld) Manual Normal [facility] Comment on above: Order Comment: Speci men Type: BLOOD SPECIMENOrdering Facility: [facility] Address: [address] [place] [address] Performed By: #### 5 7021-8 ####[facility] LABORATORYCLIA [id number] [place] [address] [place] Eosinophils (Bld) [#/Vol] 0.13 10*3/uL Normal <0.46 [facility] Comment on above: Order Comment: Speci men Type: BLOOD SPECIMENOrdering Facility: [facility] Address: [address] [place] [address] Performed By: #### 5 7021-8 ####[facility] LABORATORYCLIA [id number] [place] [address] [place] Eosinophils/100 WBC (Bld) 1.0 % Normal [facility] Comment on above: Order Comment: Speci men Type: BLOOD SPECIMENOrdering Facility: [facility] Address: [address] [place] [address] Performed By: #### 5 7021-8 ####[facility] LABORATORYCLIA [id number] [place] [address] [place] Erythrocyte distribution width (RBC) [Ratio] 26.2 % High 11.5-15.0 [facility] Comment on above: Order Comment: Speci men Type: BLOOD SPECIMENOrdering Facility: [facility] Address: [address] [place] [address] Performed By: #### 5 7021-8 ####[facility] LABORATORYCLIA [id number] [place] [address] [place] Hematocrit (Bld) [Volume fraction] 27.9 % Low 36.0-46.0 [facility] Comment on above: Order Comment: Speci men Type: BLOOD SPECIMENOrdering Facility: [facility] [facility] Address: [address] [place] [address] Performed By: #### 5 7021-8 ####[facility] LABORATORYCLIA [id number] [place] [address] [place] Hemoglobin (Bld) [Mass/Vol] 9.0 g/dL Low 11.5-15.5 [facility] Comment on above: Order Comment: Speci men Type: BLOOD SPECIMENOrdering Facility: [facility] Address: [address] [place] [address] Performed By: #### 5 7021-8 ####[facility] LABORATORYCLIA [id number] [place] [id number] [place] Lymphocytes (Bld) [#/Vol] 2.53 10*3/uL Normal 1.00-4.00 [facility] Comment on above: Order Comment: Speci men Type: BLOOD SPECIMENOrdering Facility: [facility] Address: [address] [place] [address] Performed By: #### 5 7021-8 ####[facility] LABORATORYCLIA [id number] [address] [place] Lymphocytes/100 WBC (Bld) 19.0 % Normal [facility] Comment on above: Order Comment: Speci men Type: BLOOD SPECIMENOrdering Facility: [facility] Address: [address] [place] [address] Performed By: #### 5 7021-8 ####[facility] LABORATORYCLIA [id number] [place] [address] [place] MCH (RBC) [Entitic mass] 24.3 pg Low 26.0-34.0 [facility] Comment on above: Order Comment: Speci men Type: BLOOD SPECIMENOrdering Facility: [facility] Address: [address] [place] [address] Performed By: #### 5 7021-8 ####[facility] LABORATORYCLIA [id number] [address] [place] MCHC (RBC) [Mass/Vol] 32.3 g/dL Normal 30.5-36.0 [facility] Comment on above: Order Comment: Speci men Type: BLOOD SPECIMENOrdering Facility: [facility] Address: [address] [place] [address] Performed By: #### 5 7021-8 ####[facility] LABORATORYCLIA [id number] [place] [address] [place] MCV (RBC) [Entitic vol] 75.4 fL Low 80.0-100.0 [facility] Comment on above: Order Comment: Speci men Type: BLOOD SPECIMENOrdering Facility: [facility] Address: [address] [place] [address] Performed By: #### 5 7021-8 ####[facility] LABORATORYCLIA [id number] [address] [place] Monocytes (Bld) [#/Vol] 1.33 10*3/uL High <0.87 [facility] Comment on above: Order Comment: Speci men Type: BLOOD SPECIMENOrdering Facility: [facility] Address: [address] [place] [address] Performed By: #### 5 7021-8 ####[facility] LABORATORYCLIA [id number] [place] [id number] [place] Monocytes/100 WBC (Bld) 10.0 % Normal [facility] Comment on above: Order Comment: Speci men Type: BLOOD SPECIMENOrdering Facility: [facility] Address: [address] [place] [address] Performed By: #### 5 7021-8 ####[facility] LABORATORYCLIA [id number] [place] [id number] [place] Neutrophils (Bld) [#/Vol] 9.31 10*3/uL High 1.45-7.50 [facility] Comment on above: Order Comment: Speci men Type: BLOOD SPECIMENOrdering Facility: [facility] Address: [address] [place] [address] Performed By: #### 5 7021-8 ####[facility] LABORATORYCLIA [id number] [place] [address] [place] Neutrophils/100 WBC (Bld) 69.0 % Normal [facility] Comment on above: Order Comment: Speci men Type: BLOOD SPECIMENOrdering Facility: [facility] Address: [address] [place] [address] Performed By: #### 5 7021-8 ####[facility] LABORATORYCLIA [id number] [place] [id number] [place] Nucleated RBC (Bld) [#/Vol] 10*3/uL Normal <0.01 [facility] Comment on above: Order Comment: Speci men Type: BLOOD SPECIMENOrdering Facility: [facility] Address: [facility] [place] [address] Performed By: #### 5 7021-8 ####[facility] LABORATORYCLIA [id number] [place] [id number] [place] Nucleated RBC/100 WBC (Bld) [Ratio] 0.0 /100 WBC Normal [facility] Comment on above: Order Comment: Speci men Type: BLOOD SPECIMENOrdering Facility: [facility] Address: [address] [place] [address] Performed By: #### 5 7021-8 ####[facility] LABORATORYCLIA [id number] [place] [id number] [place] Ovalocytes LM Ql (Bld) Few Normal [facility] Comment on above: Order Comment: Speci men Type: BLOOD SPECIMENOrdering Facility: [facility] Address: [address] [place] [address] Performed By: #### 5 7021-8 ####[facility] LABORATORYCLIA [id number] [place] [address] [place] Platelet mean volume (Bld) [Entitic vol] 10.0 fL Normal 9.0-12.7 [facility] Comment on above: Order Comment: Speci men Type: BLOOD SPECIMENOrdering Facility: [facility] Address: [address] [place] [address] Performed By: #### 5 7021-8 ####[facility] LABORATORYCLIA [id number] [place] [address] [place] Platelets (Bld) [#/Vol] 107 10*3/uL Low 150-400 [facility] Comment on above: Order Comment: Speci men Type: BLOOD SPECIMENOrdering Facility: [facility] Address: [address] [place] [address] Result Comment: No c lot detected. Performed By: #### 5 7021-8 ####[facility] LABORATORYCLIA [id number] [place] [address] [place] Platelets Estimate (Bld) [#/Vol] Decreased Normal [facility] Comment on above: Order Comment: Speci men Type: BLOOD SPECIMENOrdering Facility: [facility] Address: [address] [place] [address] Performed By: #### 5 7021-8 ####[facility] LABORATORYCLIA [id number] [address] Polychromasia LM Ql (Bld) Slight Normal [facility] Comment on above: Order Comment: Speci men Type: BLOOD SPECIMENOrdering Facility: [facility] Address: [address] [place] [address] Performed By: #### 5 7021-8 ####[facility] LABORATORYCLIA [id number] [place] [id number] [place] RBC (Bld) [#/Vol] 3.70 10*6/uL Low 3.90-5.20 [facility] Comment on above: Order Comment: Speci men Type: BLOOD SPECIMENOrdering Facility: [facility] Address: [address] [place] [address] Performed By: #### 5 7021-8 ####[facility] LABORATORYCLIA [id number] [address] [place] CE[place] MORPH Reviewed: see result s of individual morphologies Normal [facility] Comment on above: Order Comment: Speci men Type: BLOOD SPECIMENOrdering Facility: [facility] Address: [address] [place] [address] Performed By: #### 5 7021-8 ####[facility] LABORATORYCLIA [id number] [address] WBC (Bld) [#/Vol] 13.30 10*3/uL High 3.70-11.00 [facility] Comment on above: Order Comment: Speci men Type: BLOOD SPECIMENOrdering Facility: [facility] Address: [address] [place] [address] Performed By: #### 5 7021-8 ####[facility] LABORATORYCLIA [id number] [address] CNDSon 11-23-2023 CNDS HNO ID: [id number] Author: JEROME AMAYA DO Service: Hospital Medicine Author Type: Physician Type: Discharge Summary Filed: 11/23/2023 15:52 Note Text: DISCHARGE SUMMARY PATIENT NAME: Carolina Hightower ADMISSION DATE: 11/18/2023 DISCHARGE DATE: 11/23/2023 ATTENDING PHYSICIAN: Jerome Amaya DO Code Status: Full Code Highest Readmission Risk Score: 29 The 30 day readmissions risk score is derived from an internally validated risk model which evaluates patient level characteristics, utilization history, medication orders and lab results up until the day of discharge. Patients with a score of 40 or above are considered highest risk for readmission. Specific patient level drivers will be listed at the bottom of the summary. SPECIALITY SERVICES SEEN DURING HOSPITALIZATION: Infectious disease, critical care CHIEF COMPLAINT: Abdominal pain REASON FOR HOSPITALIZATION: Abdominal pain, distention FINAL DIAGNOSIS: SBP, community-acquired pneumonia, sepsis, acute hypoxic respiratory failure OPERATIONS/PROCEDURES DURING HOSPITALIZATION: HOSPITAL COURSE: 48 year old female who presented to an outlying emergency department yesterday, November 17, 2023, for further evaluation of abdominal pain and distention. Patient has known cirrhosis. Recently, she has been evaluated multiple times at [facility] for similar symptoms. Paracentesis has been performed Upon arrival to the emergency department yesterday the patient was found to be hemodynamically stable. Laboratory workup was largely unrevealing. Of important note, an ammonia level was unable to be obtained at that facility. Abdominal imaging was not obtained either. During hospital stay, patient would be evaluated by infectious disease for concern for SBP. Patient would be continued on IV Rocephin for 7 days total treatment during hospitalization. Patient would also episode of acute hypoxic hypercapnic respiratory failure that improved with diuresis and AVAPS therapy. Patient will be started on Aldactone at discharge. Patient also will continue prednisone taper at discharge. Patient will also be started on hydroxyzine for anxiety and iron replacement. Follow up with PCP in one week. Vital signs were stable on discharge. Patient understood and agreed with discharge plan. ADMISSION PHYSICAL EXAM: General: alert and oriented x3, resting comfortably Neck: supple, no hepatojugular reflux or jugular venous distention, no carotid bruits Lungs: clear to auscultation bilaterally, no wheezing, rales, or rhonchi Cardiac: regular rate and rhythm, normal S1 and S2, no murmurs, gallops, or rubs Abdomen: distended, tender, bowel sounds present Extremities: no edema, cyanosis, or clubbing Skin: no rashes or breakdown Lymphatic: no cervical or supraclavicular lymphadenopathy Neurologic: cranial nerves II-XII are grossly intact Psychiatry: normal affect, no hallucinations, no suicidal ideation ASSESSMENT AND PLAN: Assesment: Suspected SBP Suspected community-acquired pneumonia Sepsis secondary to above resolved Acute respite failure with hypoxia and hypercapnia resolved Acute toxic metabolic encephalopathy resolved Hepatitis C and cirrhosis secondary to hep C Thrombocytopenia secondary to cirrhosis Tobacco abuse Suspected COPD exacerbation improved Obesity BMI 35 History of MRSA Anemia secondary to iron deficiency Plan *Suspected SBP, continue IV Rocephin 1 g daily, patient received azithromycin x 1, ID note was reviewed. Patient still have leukocytosis possibly secondary to taper down steroids, continue prophylactic PPI *Will add Senokot for laxatives *Review blood work showed thrombocytopenia and anemia but leukocytosis well *Check CBC BMP magnesium for tomorrow *I discussed the case with the patient, nursing staff and case management Plan *Discussed the case with ID, at this time we will finish the IV Rocephin tomorrow, patient had paracentesis in [facility] without any significant results, he had paracentesis yesterday results are undetermined. Therefore 1 more day of IV Rocephin day tomorrow and then she finished antibiotics, continuing meantime Taper down steroids and prophylactic PPI *Patient is started having bowel movement *Review blood work results unremarkable except for HANDH low but stable current hemoglobin 9.5 white blood cells 12.5 thousand platelets 95,000. *Check CBC BMP magnesium for tomorrow *I discussed the case with the patient, nursing staff and case management PATIENT CONDITION AT DISCHARGE: Stable DISCHARGE DISPOSITION: Home VITALS: Patient Vitals for the past 12 hrs: BP Temp Temp src Pulse Resp SpO2 11/23/23 1508 124/83 36.8 ?C (98.2 ?F) Oral 90 20 95 % 11/23/23 1159 -- -- -- 74 20 -- 11/23/23 1152 119/64 37 ?C (98.6 ?F) Oral 74 18 92 % INFORMATION PROVIDED TO PATIENT: ALLERGIES Allergen Reactions Aspirin UNCERTAIN =CHILDHOOD Bupropion (more content not included)... Normal [facility] Magnesium SerPl-mCncon 11-23 Magnesium [Mass/Vol] 1.7 mg/dL Normal 1.6-2.6 [facility] Comment on above: Order Comment: Speci men Type: BLOOD SPECIMENOrdering Facility: [facility] Address: [address] [place] [address] Performed By: #### 2 4321-2, 82139-1 ####[facility] LABORATORYCLIA [id number] [place] [address] [place] Basic metabolic 2000 panelon 11-22-2023 Anion gap [Moles/Vol] 3 mmol/L Low 5-16 [facility] Comment on above: Order Comment: Speci men Type: ARTERIAL BLOOD SPECIMEN [facility] Address: [address] [place] [address] Performed By: #### A LLBG #### [facility] CLIA [id number] [address] [place] [address] [place] Calcium [Mass/Vol] 9.7 mg/dL Normal 8.5-10.5 [facility] Comment on above: Order Comment: Speci men Type: ARTERIAL BLOOD SPECIMEN [facility] Address: [address] [place] [address] Performed By: #### A LLBG #### [facility] CLIA [id number] [address] [place] [address] [place] Chloride [Moles/Vol] 105 mmol/L Normal 98-107 [facility] Comment on above: Order Comment: Speci men Type: ARTERIAL BLOOD SPECIMEN [facility] Address: [address] [place] [address] Performed By: #### A LLBG #### [facility] CLIA [id number] [address] [place] [address] [place] CO2 [Moles/Vol] 28 mmol/L Normal 21-32 [facility] Comment on above: Order Comment: Speci men Type: ARTERIAL BLOOD SPECIMEN [facility] Address: [address] [place] [address] Performed By: #### A LLBG #### [facility] CLIA [id number] [address] [place] [address] [place] Creatinine [Mass/Vol] 0.81 mg/dL Normal 0.51-0.95 [facility] Comment on above: Order Comment: Cole lamas Type: ARTERIAL BLOOD SPECIMEN [facility] Address: [address] [place] [address] Result Comment: Tamie ents receiving either N-Acetylcysteine (NAC) or Metamizole prior to venipuncture, may have falsely depressed results. Performed By: #### A LLBG #### [facility] [id number] [address] [place] [address] [facility] [place] Creatinine and Glomerular filtration rate.predicted panel (S/P/Bld) 89 mL/min/1.73m??? Normal >=60 [facility] Comment on above: Order Comment: Cole lamas Type: ARTERIAL BLOOD SPECIMEN [facility] Address: [address] [place] [address] Result Comment: Connie mated Glomerular Filtration Rate (eGFR) is calculated using the 2020 CKD-EPI creatinine equation. This equation utilizes serum creatinine, sex, and age as parameters. The creatinine assay has traceable calibration to isotope dilution-mass spectrometry. Refer to KDIGO guidelines for clinical interpretation. In patients with unstable renal function, e.g. those with acute kidney injury, the eGFR may not accurately reflect actual GFR. Performed By: #### A LLBG #### [facility] [id number] [address] [place] [address] [place] Glucose [Mass/Vol] 92 mg/dL Normal 70-100 [facility] Comment on above: Order Comment: Cole lamas Type: ARTERIAL BLOOD SPECIMEN [facility] Address: [address] [place] [address] Result Comment: The [place] Diabetes [employer] (ADA) provides guidance for cutoff values for fasting glucose and random glucose. The ADA defines fasting as no caloric intake for at least 8 hours. Fasting plasma glucose results between 100 to 125 mg/dL indicate increased risk for diabetes (prediabetes). Fasting plasma glucose results greater than or equal to 126 mg/dL meet the criteria for diagnosis of diabetes. In the absence of unequivocal hyperglycemia, results should be confirmed by repeat testing. In a patient with classic symptoms of hyperglycemia or hyperglycemic crisis, random plasma glucose results greater than or equal to 200 mg/dL meet the criteria for diagnosis of diabetes. Reference: Standards of Medical Care in Diabetes 2016, [place] [employer]. Diabetes Care. 2016.39(Suppl 1). Results may be falsely elevated after the administration of Sulfapyridine. Results may be falsely depressed after the administration of Sulfasalazine. Performed By: #### A LLBG #### [facility] CLIA [id number] [address] [place] [address] STATES OF [facility] Potassium [Moles/Vol] 4.4 mmol/L Normal 3.5-5.1 [facility] Comment on above: Order Comment: Speci men Type: ARTERIAL BLOOD SPECIMEN [facility] Address: [address] [place] [address] Performed By: #### A LLBG #### [facility] CLIA [id number] [address] [place] [address] [place] [facility] Sodium [Moles/Vol] 136 mmol/L Normal 136-145 [facility] Comment on above: Order Comment: Speci men Type: ARTERIAL BLOOD SPECIMEN [facility] Address: [address] [place] [address] Performed By: #### A LLBG #### [facility] CLIA [id number] [address] [place] [address] STATES [facility] Urea nitrogen [Mass/Vol] 18 mg/dL Normal 7-26 [facility] Comment on above: Order Comment: Speci men Type: ARTERIAL BLOOD SPECIMEN [facility] Address: [address] [place] [address] Performed By: #### A LLBG #### [facility] CLIA [id number] [address] [place] [address] [place] CBC W Auto Differential pane l (Bld)on 11-22-2023 Anisocytosis Ql (Bld) Present Normal [facility] Comment on above: Order Comment: Speci men Type: ARTERIAL BLOOD SPECIMEN [facility] Address: [address] [place] [address] Performed By: #### A LLBG #### [facility] CLIA [id number] [address] [place] [address] [place] Basophils (Bld) [#/Vol] 0.00 10*3/uL Normal <0.11 [facility] Comment on above: Order Comment: Speci men Type: ARTERIAL BLOOD SPECIMEN [facility] Address: [address] [place] [address] Performed By: #### A LLBG #### [facility] CLIA [id number] [address] [place] [address] [place] Basophils/100 WBC (Bld) 0.0 % Normal [facility] Comment on above: Order Comment: Speci men Type: ARTERIAL BLOOD SPECIMEN [facility] Address: [address] [place] [address] Performed By: #### A LLBG #### [facility] CLIA [id number] [address] [place] [address] [place] Differential cell count method Nom (Bld) Manual Normal [facility] Comment on above: Order Comment: Speci men Type: ARTERIAL BLOOD SPECIMEN [facility] Address: [address] [place] [address] Performed By: #### A LLBG #### [facility] CLIA [id number] [address] [place] [address] [place] DIMORPHIC POPULATION Present Normal [facility] Comment on above: Order Comment: Speci men Type: ARTERIAL BLOOD SPECIMEN [facility] Address: [address] [place] [address] Performed By: #### A LLBG #### [facility] CLIA [id number] [address] [place] [address] [place] Eosinophils (Bld) [#/Vol] 0.00 10*3/uL Normal <0.46 [facility] Comment on above: Order Comment: Speci men Type: ARTERIAL BLOOD SPECIMEN [facility] Address: [address] [place] [address] Performed By: #### A LLBG #### [facility] CLIA [id number] [address] [place] [address] [place] Eosinophils/100 WBC (Bld) 0.0 % Normal [facility] Comment on above: Order Comment: Speci men Type: ARTERIAL BLOOD SPECIMEN [facility] Address: [address] [place] [address] Performed By: #### A LLBG #### [facility] CLIA [id number] [address] [place] [address] [place] Erythrocyte distribution width (RBC) [Ratio] 26.1 % High 11.5-15.0 [facility] Comment on above: Order Comment: Speci men Type: ARTERIAL BLOOD SPECIMEN [facility] Address: [address] [place] [address] Performed By: #### A LLBG #### [facility] CLIA [id number] [address] [place] [address] [place] Hematocrit (Bld) [Volume fraction] 30.3 % Low 36.0-46.0 [facility] Comment on above: Order Comment: Speci men Type: ARTERIAL BLOOD SPECIMEN [facility] Address: [address] [place] [address] Performed By: #### A LLBG #### [facility] CLIA [id number] [address] [place] [address] [place] Hemoglobin (Bld) [Mass/Vol] 9.5 g/dL Low 11.5-15.5 [facility] Comment on above: Order Comment: Speci men Type: ARTERIAL BLOOD SPECIMEN [facility] Address: [address] [place] [address] Performed By: #### A LLBG #### [facility] CLIA [id number] [address] [place] [address] [place] Lymphocytes (Bld) [#/Vol] 2.01 10*3/uL Normal 1.00-4.00 [facility] Comment on above: Order Comment: Speci men Type: ARTERIAL BLOOD SPECIMEN [facility] Address: [address] [place] [address] Performed By: #### A LLBG #### [facility] CLIA [id number] [address] [place] [address] [place] Lymphocytes/100 WBC (Bld) 16.0 % Normal [facility] Comment on above: Order Comment: Speci men Type: ARTERIAL BLOOD SPECIMEN [facility] Address: [address] [place] [address] Performed By: #### A LLBG #### [facility] CLIA [id number] [address] [place] [address] [place] MCH (RBC) [Entitic mass] 24.4 pg Low 26.0-34.0 [facility] Comment on above: Order Comment: Speci men Type: ARTERIAL BLOOD SPECIMEN [facility] Address: [address] [place] [address] Performed By: #### A LLBG #### [facility] CLIA [id number] [address] [place] [address] [place] MCHC (RBC) [Mass/Vol] 31.4 g/dL Normal 30.5-36.0 [facility] Comment on above: Order Comment: Speci men Type: ARTERIAL BLOOD SPECIMEN [facility] Address: [address] [place] [address] Performed By: #### A LLBG #### [facility] [place] [id number] [address] [place] [address] [place] MCV (RBC) [Entitic vol] 77.7 fL Low 80.0-100.0 [facility] Comment on above: Order Comment: Speci men Type: ARTERIAL BLOOD SPECIMEN [facility] Address: [address] [place] [address] Performed By: #### A LLBG #### [facility] CLIA [id number] [address] [place] [address] [place] Monocytes (Bld) [#/Vol] 0.88 10*3/uL High <0.87 [facility] Comment on above: Order Comment: Speci men Type: ARTERIAL BLOOD SPECIMEN Ordering Facility: [facility] Address: [address] [place] [address] Performed By: #### A LLBG #### [facility] CLIA [id number] [address] [place] [address] [place] Monocytes/100 WBC (Bld) 7.0 % Normal [facility] Comment on above: Order Comment: Speci men Type: ARTERIAL BLOOD SPECIMEN Ordering Facility: [facility] Address: [address] [place] [address] Performed By: #### A LLBG #### [facility] CLIA [id number] [address] [place] [address] [place] MYELO% 1.0 % Normal [facility] Comment on above: Order Comment: Speci men Type: ARTERIAL BLOOD SPECIMEN Ordering Facility: [facility] Address: [address] [place] [address] Performed By: #### A LLBG #### [facility] CLIA [id number] [address] [place] [address] [place] Neutrophils (Bld) [#/Vol] 9.57 10*3/uL High 1.45-7.50 [facility] Comment on above: Order Comment: Speci men Type: ARTERIAL BLOOD SPECIMEN Ordering Facility: [facility] Address: [address] [place] [address] Performed By: #### A LLBG #### [facility] CLIA [id number] [address] [place] [address] [place] Neutrophils.hyperseg mented LM Ql (Bld) Occasional Normal [facility] Comment on above: Order Comment: Speci men Type: ARTERIAL BLOOD SPECIMEN Ordering Facility: [facility] Address: [address] [place] [address] Performed By: #### A LLBG #### [facility] CLIA [id number] [address] [place] [address] [place] Neutrophils/100 WBC (Bld) 76.0 % Normal [facility] Comment on above: Order Comment: Speci men Type: ARTERIAL BLOOD SPECIMEN Ordering Facility: [facility] Address: [address] [place] [address] Performed By: #### A LLBG #### [facility] CLIA [id number] [address] [place] [address] [place] Nucleated RBC (Bld) [#/Vol] 10*3/uL Normal <0.01 [facility] Comment on above: Order Comment: Speci men Type: ARTERIAL BLOOD SPECIMEN Ordering Facility: [facility] Address: [address] [place] [address] Performed By: #### A LLBG #### [facility] CLIA [id number] [address] [place] [address] [place] Nucleated RBC/100 WBC (Bld) [Ratio] 0.0 /100 WBC Normal [facility] Comment on above: Order Comment: Speci men Type: ARTERIAL BLOOD SPECIMEN Ordering Facility: [facility] Address: [address] [place] [address] Performed By: #### A LLBG #### [facility] CLIA [id number] [address] [place] [address] [place] Ovalocytes LM Ql (Bld) Few Normal [facility] Comment on above: Order Comment: Speci men Type: ARTERIAL BLOOD SPECIMEN Ordering Facility: [facility] Address: [address] [place] [address] Performed By: #### A LLBG #### [facility] CLIA [id number] [address] [place] [address] [place] Platelet mean volume (Bld) [Entitic vol] 9.7 fL Normal 9.0-12.7 [facility] Comment on above: Order Comment: Speci men Type: ARTERIAL BLOOD SPECIMEN Ordering Facility: [facility] Address: [address] [place] [address] Performed By: #### A LLBG #### [facility] CLIA [id number] [address] [place] [address] [place] Platelets (Bld) [#/Vol] 95 10*3/uL Low 150-400 [facility] Comment on above: Order Comment: Speci men Type: ARTERIAL BLOOD SPECIMEN Ordering Facility: [facility] Address: [address] [place] [address] Result Comment: No c lot detected. Performed By: #### A LLBG #### [facility] CLIA [id number] [address] [place] [address] Platelets Estimate (Bld) [#/Vol] Decreased Normal [facility] Comment on above: Order Comment: Speci men Type: ARTERIAL BLOOD SPECIMEN Ordering Facility: [facility] Address: [address] [place] [address] Performed By: #### A LLBG #### [facility] CLIA [id number] [address] [place] [address] Polychromasia LM Ql (Bld) Slight Normal [facility] Comment on above: Order Comment: Speci men Type: ARTERIAL BLOOD SPECIMEN Ordering Facility: [facility] Address: [address] [place] [address] Performed By: #### A LLBG #### [facility] CLIA [id number] [address] [place] [address] [place] RBC (Bld) [#/Vol] 3.90 10*6/uL Normal 3.90-5.20 [facility] Comment on above: Order Comment: Speci men Type: ARTERIAL BLOOD SPECIMEN Ordering Facility: [facility] Address: [address] [place] [address] Performed By: #### A LLBG #### [facility] CLIA [id number] [address] [place] [address] RED CELL MORPH Reviewed: see result s of individual morphologies Normal [facility] Comment on above: Order Comment: Speci men Type: ARTERIAL BLOOD SPECIMEN Ordering Facility: [facility] Address: [address] [place] [address] Performed By: #### A LLBG #### [facility] CLIA [id number] [address] [place] [address] [place] WBC (Bld) [#/Vol] 12.59 10*3/uL High 3.70-11.00 [facility] Comment on above: Order Comment: Speci men Type: ARTERIAL BLOOD SPECIMEN Ordering Facility: [facility] Address: [address], [place] [id number] Performed By: #### A LLBG #### [facility] CLIA [id number] [address] [place] [id number] [place] CONSULT PROGon 11-22-2023 CONSULT PROG HNO ID: [id number] Author: SOHAIL CARRINGTON MD Service: Infectious Disease Author Type: Physician Type: Consult Progress Note Filed: 11/22/2023 10:06 Note Text: Infectious Disease SERVICE CONSULT PROGRESS NOTE SERVICE DATE: 11/22/2023 SERVICE TIME: 9:57 AM Subjective INTERVAL HPI: Pt had 2.2L paracentesis yesterday. Abdominal pain is better. Denies f/c. Admits to mild wheezing today. Current Facility-Administered Medications Medication Dose Route Frequency NaCl 0.9% iv flush bag 20 mL INTRAVENOUS PRN iv contrast (radiology procedure) INTRAVENOUS DIRECTED PRN cefTRIAXone 2 g in D5W 100 mL Vial-Bag (ROCEPHIN) 2 g INTRAVENOUS DAILY (1 PM) furosemide 20 mg tab(s) (LASIX) 20 mg ORAL DAILY spironolactone 50 mg tab(s) (ALDACTONE) 50 mg ORAL DAILY pantoprazole DR 40 mg tab(s) (PROTONIX) 40 mg ORAL BID AC (0600/1600) acetaminophen 650 mg tab(s) (TYLENOL) 650 mg ORAL q 4 H PRN gabapentin 300 mg cap(s) (NEURONTIN) 300 mg ORAL q 12 H oxyCODONE IR 5 mg tab(s) (ROXICODONE) 5 mg ORAL q 4 H PRN hydrOXYzine HCl 25 mg tab(s) (ATARAX) 25 mg ORAL q 8 H PRN ipratropium-albuterol 3 mL nebulizer solution (DUONEB) 3 mL INHALATION q 4 H PRN ipratropium-albuterol 3 mL nebulizer solution (DUONEB) 3 mL INHALATION QID [START ON 11/23/2023] predniSONE (DELTASONE) tab(s) 30 mg 30 mg ORAL DAILY Followed by [START ON 11/26/2023] predniSONE 20 mg tab(s) (DELTASONE) 20 mg ORAL DAILY Followed by [START ON 11/29/2023] predniSONE 10 mg tab(s) (DELTASONE) 10 mg ORAL DAILY ferrous sulfate 325 mg tab(s) 325 mg ORAL DAILY ascorbic acid (vitamin C) 500 mg tab(s) (VITAMIN C) 500 mg ORAL DAILY senna-docusate 8.6-50 mg 1 tablet (SENNA-S) 1 tablet ORAL BID LORazepam 1 mg injection (ATIVAN) 1 mg INTRAVENOUS q 8 H PRN Objective PHYSICAL EXAM: Physical Exam Performed: BP 117/80 Pulse 78 Temp (Src) 98 (Oral) Resp 16 Ht 5' 2 (1.58m) Wt 191 lb 4.8 oz (86.8kg) SpO2 93% LMP 11/20/2020 BMI 34.98 kg/(m2). O2 Therapy: Room Air Alert, oriented, NAD RRR Bilateral expiratory wheezes. No respiratory distress. Abd with slight mid/upper tenderness. DATA: Diagnostic tests reviewed for today's visit: CBC: Recent Labs 11/22/23 0450 WBC 12.59* RBC 3.90 HB 9.5* HCT 30.3* PLT 95* MCV 77.7* MCH 24.4* MPV 9.7 CMP: Recent Labs 11/22/23 0450 NA 136 K 4.4 CHLOR 105 CO2 28 BUN 18 CREAT 0.81 GLUC 92 CA 9.7 MG 1.9 ANION 3* Impression/Recommendations Principal Problem: Pneumonia Cirrhosis, ascites Possible SBP Polysubstance abuse Hx of hepatitis C Hx of MRSA Pt looks clinically stable from ID standpoint. She is on day 4 of IV antibiotics. 2.2 L paracentesis done yesterday which did not meet criteria for SBP but results could have been skewed due to antibiotics already being administered. Recommend 1 more dose of ceftriaxone tomorrow to finish her antibiotic course for PNA and possible SBP. WBC count trending down today. Case discussed with Dr. Hernandez. SIGNATURE: Sohail Carrington MD PATIENT NAME: Carolina Hightower DATE: November 22, 2023 TIME: 9:57 AM Normal [facility] Magnesium SerPl-mCncon 11-22 Magnesium [Mass/Vol] 1.9 mg/dL Normal 1.6-2.6 [facility] Comment on above: Order Comment: Speci men Type: ARTERIAL BLOOD SPECIMEN Ordering Facility: [facility] Address: [address] [place] [address] Performed By: #### A LLBG #### [facility] CLIA [id number] [address] [place] [address] OF [place] BF MANUAL DIFFon 11-21-2023 DIF TTL, BODY FLUID 100 cells counted Normal [facility] Comment on above: Order Comment: Speci men Type: ARTERIAL BLOOD SPECIMEN Ordering Facility: [facility] Address: [address] [place] [address] Performed By: #### A LLBG #### [facility] CLIA [id number] [address] [place] [address] [place] LYMPH%, BF 67 % High 18-36 [facility] Comment on above: Order Comment: Speci men Type: ARTERIAL BLOOD SPECIMEN Ordering Facility: [facility] Address: [address] [place] [address] Performed By: #### A LLBG #### [facility] CLIA [id number] [address] [place] [address] [place] MONO% BF 18 % Normal [facility] Comment on above: Order Comment: Speci men Type: ARTERIAL BLOOD SPECIMEN Ordering Facility: [facility] Address: [address] [place] [address] Performed By: #### A LLBG #### [facility] CLIA [id number] [address] [place] [address] [place] NEUT%, BF 15 % High 0-1 [facility] Comment on above: Order Comment: Speci men Type: ARTERIAL BLOOD SPECIMEN Ordering Facility: [facility] Address: [address] [place] [address] Performed By: #### A LLBG #### [facility] CLIA [id number] [address] [place] [address] BF STAFF REVIEW (LAB ORDER)o n 11-21-2023 BF REVIEW Reviewed by Donny Miguel DO [facility] Comment on above: Order Comment: Speci men Type: ARTERIAL BLOOD SPECIMEN Ordering Facility: [facility] Address: [address] [place] [address] Performed By: #### A LLBG #### [facility] CLIA [id number] [address] [place] [address] BF STAFF COMMENTS Normal [facility] Comment on above: Order Comment: Speci men Type: ARTERIAL BLOOD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 [facility] Address: [address] [place] [address] Performed By: #### 2 4323-8, #### [facility] CLIA [id number] [address] [place], [place] [address] [place] Glucose [Mass/Vol] 123 mg/dL High 60-105 [facility] Comment on above: Order Comment: Speci men Type: BLOOD SPECIMEN Ordering Facility: [facility] Address: [address] [place] [address] Performed By: #### 2 4323-8, #### [facility] CLIA [id number] [address] [place] [address] [place] HCO3 (Bld) [Moles/Vol] 25 mmol/L Normal 22-26 [facility] Comment on above: Order Comment: Speci men Type: BLOOD SPECIMEN Ordering Facility: [facility] Address: [address] [place] [address] Performed By: #### 2 4323-8, #### [facility] CLIA [id number] [address] [place], [place] [id number] [place] Hemoglobin (Bld) [Mass/Vol] 9.3 g/dL Low 11.5-15.5 [facility] Comment on above: Order Comment: Speci men Type: BLOOD SPECIMEN Ordering Facility: [facility] Address: [address] [place] [address] Performed By: #### 2 4323-8, #### [facility] CLIA [id number] [address] [place], [place] [address] [place] Lactate [Moles/Vol] 2.0 mmol/L Normal 0.5-2.2 [facility] Comment on above: Order Comment: Speci men Type: BLOOD SPECIMEN Ordering Facility: [facility] Address: [address] [place] [address] Performed By: #### 2 4323-8, #### [facility] CLIA [id number] [address] [place], [place] [address] [place] Methemoglobin (Bld) [Mass fraction] 0.3 % Normal 0.0-1.5 [facility] Comment on above: Order Comment: Speci men Type: BLOOD SPECIMEN Ordering Facility: [facility] Address: [address] [facility] [place] [address] Performed By: #### 2 4323-8, #### [facility] CLIA [id number] [address] [place], [place] [address] [place] O2 THERAPY NC = Nasal Cannula Normal [facility] Comment on above: Order Comment: Speci men Type: BLOOD SPECIMEN Ordering Facility: [facility] Address: [address] [place] [address] Performed By: #### 2 4328, #### [facility] CLIA [id number] [address] [place] [address] [place] Oxygen (Bld) [Partial pressure] 84 mm Hg Low 85-95 [facility] Comment on above: Order Comment: Speci men Type: BLOOD SPECIMEN Ordering Facility: [facility] Address: [address] [place] [address] Performed By: #### 2 4328, #### [facility] CLIA [id number] [address] [place] [address] [place] Oxyhemoglobin (BldA) [Mass fraction] 95 % Normal 95-98 [facility] Comment on above: Order Comment: Speci men Type: BLOOD SPECIMEN Ordering Facility: [facility] Address: [address] [place] [address] Performed By: #### 2 4328, #### [facility] CLIA [id number] [address] [place] [address] [place] pH (Bld) 7.45 [pH] Normal 7.35-7.45 [facility] Comment on above: Order Comment: Speci men Type: BLOOD SPECIMEN Ordering Facility: [facility] Address: [address] [place], [place] [address] Performed By: #### 2 4323-8, #### [facility] CLIA [id number] [address] [place], [place] [address] [place] Potassium [Moles/Vol] 4.4 mmol/L Normal 2.5-6.0 [facility] Comment on above: Order Comment: Speci men Type: BLOOD SPECIMEN Ordering Facility: [facility] Address: [address] [place] [address] Performed By: #### 2 4323-8, #### [facility] CLIA [id number] [address] [place], [place] [address] [place] Sodium [Moles/Vol] 130 mmol/L Low 136-144 [facility] Comment on above: Order Comment: Speci men Type: BLOOD SPECIMEN Ordering Facility: [facility] Address: [address] [place], [place] [address] Performed By: #### 2 4323-8, #### [facility] CLIA [id number] [address] [place] [address] [place] CBC W Auto Differential pane l (Bld)on 11-20-2023 Anisocytosis Ql (Bld) Present Normal [facility] Comment on above: Order Comment: Speci men Type: BLOOD SPECIMEN Ordering Facility: [facility] Address: [address] [place] [id number] Performed By: #### 2 4323-8, #### [facility] CLIA [id number] [address] [place] [address] [place] Band form neutrophils/100 WBC (Bld) 3.0 % Normal [facility] Comment on above: Order Comment: Speci men Type: BLOOD SPECIMEN Ordering Facility: [facility] Address: [address] [place] [address] Performed By: #### 2 4323-8, #### [facility] CLIA [id number] [address] [place], [place] [id number] [place] Basophils (Bld) [#/Vol] 0.00 10*3/uL Normal <0.11 [facility] Comment on above: Order Comment: Speci men Type: BLOOD SPECIMEN Ordering Facility: [facility] Address: [address] [place] [address] Performed By: #### 2 4323-8, #### [facility] CLIA [id number] [address] [place], [place] [id number] [place] Basophils/100 WBC (Bld) 0.0 % Normal [facility] Comment on above: Order Comment: Speci men Type: BLOOD SPECIMEN Ordering Facility: [facility] Address: [address] [place] [address] Performed By: #### 2 4323-8, #### [facility] CLIA [id number] [address] [place] [address] [place] Differential cell count method Nom (Bld) Manual Normal [facility] Comment on above: Order Comment: Speci men Type: BLOOD SPECIMEN Ordering Facility: [facility] Address: [address] [place] [address] Performed By: #### 2 4323-8, #### [facility] CLIA [id number] [address] [place] [address] [place] Eosinophils (Bld) [#/Vol] 0.00 10*3/uL Normal <0.46 [facility] Comment on above: Order Comment: Speci men Type: BLOOD SPECIMEN Ordering Facility: [facility] Address: [address] [place] [address] Performed By: #### 2 4323-8, #### [facility] CLIA [id number] [address] [place] [address] [place] Eosinophils/100 WBC (Bld) 0.0 % Normal [facility] Comment on above: Order Comment: Speci men Type: BLOOD SPECIMEN Ordering Facility: [facility] Address: [address] [place] [address] Performed By: #### 2 4323-8, #### [facility] CLIA [id number] [address] [place], [place] [id number] [place] Erythrocyte distribution width (RBC) [Ratio] 24.6 % High 11.5-15.0 [facility] Comment on above: Order Comment: Speci men Type: BLOOD SPECIMEN Ordering Facility: [facility] Address: [address] [place], [place] [address] Performed By: #### 2 4323-8, #### [facility] CLIA [id number] [address] [place], [place] [id number] [place] [place] Hematocrit (Bld) [Volume fraction] 26.5 % Low 36.0-46.0 [facility] Comment on above: Order Comment: Speci men Type: BLOOD SPECIMEN Ordering Facility: [facility] Address: [address] [place] [address] Performed By: #### 2 432-8, #### [facility] CLIA [id number] [address] [place], [place] [address] [place] Hemoglobin (Bld) [Mass/Vol] 8.3 g/dL Low 11.5-15.5 [facility] Comment on above: Order Comment: Speci men Type: BLOOD SPECIMEN Ordering Facility: [facility] Address: [address] [place] [address] Performed By: #### 2 4328, #### [facility] CLIA [id number] [address] [place] [address] [place] Lymphocytes (Bld) [#/Vol] 0.31 10*3/uL Low 1.00-4.00 [facility] Comment on above: Order Comment: Speci men Type: BLOOD SPECIMEN Ordering Facility: [facility] Address: [address] [place], [place] [address] Performed By: #### 2 4323-8, #### [facility] CLIA [id number] [address] [place], [place] [address] [place] Lymphocytes/100 WBC (Bld) 2.0 % Normal [facility] Comment on above: Order Comment: Speci men Type: BLOOD SPECIMEN Ordering Facility: [facility] Address: [address] [place] [address] Performed By: #### 2 4323-8, #### [facility] CLIA [id number] [address] [place] [address] [facility] MCH (RBC) [Entitic mass] 23.9 pg Low 26.0-34.0 [facility] Comment on above: Order Comment: Speci men Type: BLOOD SPECIMEN Ordering Facility: [facility] Address: [address] [place] [address] Performed By: #### 2 4323-8, #### [facility] CLIA [id number] [address] [place] [address] [place] MCHC (RBC) [Mass/Vol] 31.3 g/dL Normal 30.5-36.0 [facility] Comment on above: Order Comment: Speci men Type: BLOOD SPECIMEN Ordering Facility: [facility] Address: [address] [place] [address] Performed By: #### 2 4323-8, #### [facility] CLIA [id number] [address] [place] [address] [place] MCV (RBC) [Entitic vol] 76.1 fL Low 80.0-100.0 [facility] Comment on above: Order Comment: Speci men Type: BLOOD SPECIMEN Ordering Facility: [facility] Address: [address] [place] [address] Performed By: #### 2 4323-8, #### [facility] CLIA [id number] [address] [place] [address] [place] Metamyelocytes/100 WBC (Bld) 1.0 % Normal [facility] Comment on above: Order Comment: Speci men Type: BLOOD SPECIMEN Ordering Facility: [facility] Address: [address] [place] [address] Performed By: #### 2 4323-8, #### [facility] CLIA [id number] [address] [place] [address] [place] Monocytes (Bld) [#/Vol] 0.94 10*3/uL High <0.87 [facility] Comment on above: Order Comment: Speci men Type: BLOOD SPECIMEN Ordering Facility: [facility] Address: [address] [place] [address] Performed By: #### 2 4323-8, #### [facility] CLIA [id number] [address] [place], [place] [address] [place] Monocytes/100 WBC (Bld) 6.0 % Normal [facility] Comment on above: Order Comment: Speci men Type: BLOOD SPECIMEN Ordering Facility: [facility] Address: [address] [place] [address] Performed By: #### 2 4328, #### [facility] CLIA [id number] [address] [place] [address] [place] Neutrophils (Bld) [#/Vol] 14.24 10*3/uL High 1.45-7.50 [facility] Comment on above: Order Comment: Speci men Type: BLOOD SPECIMEN Ordering Facility: [facility] Address: [address] [place] [address] Performed By: #### 2 4328, #### [facility] CLIA [id number] [address] [place] [address] [place] Neutrophils.hyperseg mented LM Ql (Bld) Occasional Normal [facility] Comment on above: Order Comment: Speci men Type: BLOOD SPECIMEN Ordering Facility: [facility] Address: [address] [place] [address] Performed By: #### 2 43238, #### [facility] CLIA [id number] [address] [place], [place] [address] [place] Neutrophils/100 WBC (Bld) 88.0 % Normal [facility] Comment on above: Order Comment: Speci men Type: BLOOD SPECIMEN Ordering Facility: [facility] Address: [address] [place] [address] Performed By: #### 2 4323-8, #### [facility] CLIA [id number] [address] [place], [place] [address] [place] Nucleated RBC (Bld) [#/Vol] 10*3/uL Normal <0.01 [facility] Comment on above: Order Comment: Speci men Type: BLOOD SPECIMEN Ordering Facility: [facility] Address: [address] [place] [address] Performed By: #### 2 4323-8, #### [facility] CLIA [id number] [address] [place], [place] [address] [place] Nucleated RBC/100 WBC (Bld) [Ratio] 0.0 /100 WBC Normal [facility] Comment on above: Order Comment: Speci men Type: BLOOD SPECIMEN Ordering Facility: [facility] Address: [address] [place] [address] Performed By: #### 2 4323-8, #### [facility] CLIA [id number] [address] [place] [address] [place] Ovalocytes LM Ql (Bld) Few Normal [facility] Comment on above: Order Comment: Speci men Type: BLOOD SPECIMEN Ordering Facility: [facility] Address: [address] [place] [address] Performed By: #### 2 4323-8, #### [facility] CLIA [id number] [address] [place] [address] [place] Platelet mean volume (Bld) [Entitic vol] 9.9 fL Normal 9.0-12.7 [facility] Comment on above: Order Comment: Speci men Type: BLOOD SPECIMEN Ordering Facility: [facility] Address: [address] [place] [address] Performed By: #### 2 4323-8, #### [facility] CLIA [id number] [address] [place], [place] [address] [place] Platelets (Bld) [#/Vol] 78 10*3/uL Low 150-400 [facility] Comment on above: Order Comment: Speci men Type: BLOOD SPECIMEN Ordering Facility: [facility] Address: [address] [place] [address] Result Comment: No c lot detected. Performed By: #### 2 4323-8, #### [facility] CLIA [id number] [address] [place], [place] [address] [place] Platelets Estimate (Bld) [#/Vol] Decreased Normal [facility] Comment on above: Order Comment: Speci men Type: BLOOD SPECIMEN Ordering Facility: [facility] Address: [address] [place] [address] Performed By: #### 2 4328, #### [facility] CLIA [id number] [address] [place], [place] [address] [place] Polychromasia LM Ql (Bld) Slight Normal [facility] Comment on above: Order Comment: Speci men Type: BLOOD SPECIMEN Ordering Facility: [facility] Address: [address] [place] [address] Performed By: #### 2 4328, #### [facility] CLIA [id number] [address] [place] [address] [place] RBC (Bld) [#/Vol] 3.48 10*6/uL Low 3.90-5.20 [facility] Comment on above: Order Comment: Speci men Type: BLOOD SPECIMEN Ordering Facility: [facility] Address: [address] [place] [address] Performed By: #### 2 4328, #### [facility] CLIA [id number] [address] [place] [address] [place] RED CELL MORPH Reviewed: see result s of individual morphologies Normal [facility] Comment on above: Order Comment: Speci men Type: BLOOD SPECIMEN Ordering Facility: [facility] Address: [address] [place] [address] Performed By: #### 2 4323-8, #### [facility] CLIA [id number] [address] [place], [place] [address] [place] WBC (Bld) [#/Vol] 15.65 10*3/uL High 3.70-11.00 [facility] Comment on above: Order Comment: Speci men Type: BLOOD SPECIMEN Ordering Facility: [facility] Address: [address] [place] [address] Performed By: #### 2 4323-8, 80860-4 #### [facility] CLIA [id number] [address] [place], [place] [address] [facility] Calcium.ionized [Moles/Vol]o n 11-20-2023 Calcium.ionized (Bld) [Mass/Vol] 1.17 mmol/L Normal 1.16-1.32 [facility] Comment on above: Order Comment: Speci men Type: BLOOD SPECIMEN Ordering Facility: [facility] Address: [address] [place] [address] Performed By: #### 2 4323-8, 37223-8 #### [facility] CLIA [id number] [address] [place] [address] [facility] [place] Comprehensive metabolic 2000 panelon 11-20-2023 Albumin [Mass/Vol] 2.4 g/dL Low 3.2-5.0 [facility] Comment on above: Order Comment: Speci men Type: BLOOD SPECIMEN Ordering Facility: [facility] Address: [address] [place] [address] Result Comment: DELT A CHECK Performed By: #### 2 4323-8, #### [facility] CLIA [id number] [address] [place] [address] [place] ALP [Catalytic activity/Vol] 130 U/L High 45-117 [facility] Comment on above: Order Comment: Speci men Type: BLOOD SPECIMEN Ordering Facility: [facility] Address: [address] [place] [address] Performed By: #### 2 4323-8, #### [facility] CLIA [id number] [address] [place], [place] [address] [facility] [place] ALT [Catalytic activity/Vol] 32 U/L Normal 13-61 [facility] Comment on above: Order Comment: Speci men Type: BLOOD SPECIMEN Ordering Facility: [facility] Address: [address] [place] [address] Result Comment: Resu lts may be falsely depressed after the administration of Sulfasalazine and/or Sulfapyridine. Performed By: #### 2 4323-8, #### [facility] CLIA [id number] [address] [place], [place] [address] [place] Anion gap [Moles/Vol] 3 mmol/L Low 5-16 [facility] Comment on above: Order Comment: Speci men Type: BLOOD SPECIMEN Ordering Facility: [facility] Address: [address] [place] [address] Performed By: #### 2 4323-8, #### [facility] CLIA [id number] [address] [place], [place] [address] [place] AST [Catalytic activity/Vol] 76 U/L High 8-34 [facility] Comment on above: Order Comment: Speci men Type: BLOOD SPECIMEN Ordering Facility: [facility] Address: [address] [place] [address] Result Comment: Resu lts may be falsely depressed after the administration of Sulfasalazine and/or Sulfapyridine. Performed By: #### 2 432-8, #### [facility] CLIA [id number] [address] [place], [place] [address] [place] Bilirubin [Mass/Vol] 2.2 mg/dL High 0.2-1.0 [facility] Comment on above: Order Comment: Speci men Type: BLOOD SPECIMEN Ordering Facility: [facility] Address: [address] [place] [address] Performed By: #### 2 4323-8, #### [facility] CLIA [id number] [address] [place], [place] [address] [place] Calcium [Mass/Vol] 8.9 mg/dL Normal 8.5-10.5 [facility] Comment on above: Order Comment: Speci men Type: BLOOD SPECIMEN Ordering Facility: [facility] Address: [address] [place], [place] [address] Performed By: #### 2 4323-8, #### [facility] CLIA [id number] [address] [place], [place] [address] [place] Chloride [Moles/Vol] 102 mmol/L Normal 98-107 [facility] Comment on above: Order Comment: Speci men Type: BLOOD SPECIMEN Ordering Facility: [facility] Address: [address] [place] [address] Performed By: #### 2 4323-8, #### [facility] CLIA [id number] [address] [place] [address] [place] CO2 [Moles/Vol] 28 mmol/L Normal 21-32 [facility] Comment on above: Order Comment: Speci men Type: BLOOD SPECIMEN Ordering Facility: [facility] Address: [address] [place] [address] Performed By: #### 2 43238, #### [facility] CLIA [id number] [address] [place] [address] [place] Creatinine [Mass/Vol] 0.95 mg/dL Normal 0.51-0.95 [facility] Comment on above: Order Comment: Speci men Type: BLOOD SPECIMEN Ordering Facility: [facility] Address: [address] [place] [address] Result Comment: Tamie ents receiving either N-Acetylcysteine (NAC) or Metamizole prior to venipuncture, may have falsely depressed results. Performed By: #### 2 4323-8, #### [facility] CLIA [id number] [address] [place] [address] [place] Creatinine and Glomerular filtration rate.predicted panel (S/P/Bld) 73 mL/min/1.73m??? Normal >=60 [facility] Comment on above: Order Comment: Speci men Type: BLOOD SPECIMEN Ordering Facility: [facility] Address: [address], [place] [address] Result Comment: Connie mated Glomerular Filtration Rate (eGFR) is calculated using the 2020 CKD-EPI creatinine equation. This equation utilizes serum creatinine, sex, and age as parameters. The creatinine assay has traceable calibration to isotope dilution-mass spectrometry. Refer to KDIGO guidelines for clinical interpretation. In patients with unstable renal function, e.g. those with acute kidney injury, the eGFR may not accurately reflect actual GFR. Performed By: #### 2 4323-8, 97211-2 #### [facility] CLIA [id number] [address] [place] [address] [place] Glucose [Mass/Vol] 141 mg/dL High 70-100 [facility] Comment on above: Order Comment: Cole lamas Type: BLOOD SPECIMEN Ordering Facility: [facility] Address: [facility] [place] [id number] Result Comment: The [place] [employer] (ADA) provides guidance for cutoff values for fasting glucose and random glucose. The ADA defines fasting as no caloric intake for at least 8 hours. Fasting plasma glucose results between 100 to 125 mg/dL indicate increased risk for diabetes (prediabetes). Fasting plasma glucose results greater than or equal to 126 mg/dL meet the criteria for diagnosis of diabetes. In the absence of unequivocal hyperglycemia, results should be confirmed by repeat testing. In a patient with classic symptoms of hyperglycemia or hyperglycemic crisis, random plasma glucose results greater than or equal to 200 mg/dL meet the criteria for diagnosis of diabetes. Reference: Standards of Medical Care in Diabetes 2016, [place] [employer]. Diabetes Care. 2016.39(Suppl 1). Results may be falsely elevated after the administration of Sulfapyridine. Results may be falsely depressed after the administration of Sulfasalazine. Performed By: #### 2 4323-8, #### [facility] CLIA [id number] [address] [place], [place] [address] [place] Potassium [Moles/Vol] 4.9 mmol/L Normal 3.5-5.1 [facility] Comment on above: Order Comment: Cole lamas Type: BLOOD SPECIMEN Ordering Facility: [facility] Address: [address] [place] [address] Performed By: #### 2 4323-8, #### [facility] CLIA [id number] [address] [place], [place] [address] [place] Protein [Mass/Vol] 7.0 g/dL Normal 6.0-8.5 [facility] Comment on above: Order Comment: Speci men Type: BLOOD SPECIMEN Ordering Facility: [facility] Address: [address] [place] [address] Performed By: #### 2 4323-8, #### [facility] CLIA [id number] [address] [place] [address] [place] Sodium [Moles/Vol] 133 mmol/L Low 136-145 [facility] Comment on above: Order Comment: Speci men Type: BLOOD SPECIMEN Ordering Facility: [facility] Address: [address] [place] [address] Performed By: #### 2 4323-8, #### [facility] CLIA [id number] [address] [place] [address] [place] Urea nitrogen [Mass/Vol] 20 mg/dL Normal 7-26 [facility] Comment on above: Order Comment: Speci men Type: BLOOD SPECIMEN Ordering Facility: [facility] Address: [address] [place] [address] Performed By: #### 2 4323-8, #### [facility] CLIA [id number] [address] [place], [place] [address] [place] Lactate (Bld) [Moles/Vol]on 11-20-2023 Lactate [Moles/Vol] 4.2 mmol/L High 0.4-2.0 [facility] Comment on above: Order Comment: Speci men Type: BLOOD SPECIMEN Ordering Facility: [facility] Address: [address] [place] [address] Result Comment: CALL CRITICAL Performed By: #### 2 4323-8, #### [facility] CLIA [id number] [address] [place], [place] [address] [place] Lactate [Moles/Vol] 2.8 mmol/L High 0.4-2.0 [facility] Comment on above: Order Comment: Cole lamas Type: BLOOD SPECIMEN Ordering Facility: [facility] Address: [facility] [place] [address] Performed By: #### 2 4323-8, #### [facility] CLIA [id number] [address] [place], [place] [address] [place] Lactate [Moles/Vol] 3.1 mmol/L High 0.4-2.0 [facility] Comment on above: Order Comment: Cole lamas Type: BLOOD SPECIMEN Ordering Facility: [facility] Address: [address] [place], [place] [address] Performed By: #### 2 4323-8, #### [facility] CLIA [id number] [address] [place], [place] [address] [place] Magnesium SerPl-mCncon 11-20 Magnesium [Mass/Vol] 1.9 mg/dL Normal 1.6-2.6 [facility] Comment on above: Order Comment: Cole lamas Type: BLOOD SPECIMEN Ordering Facility: [facility] Address: [address] [place] [address] [place] [address] Performed By: #### 2 4323-8, #### [facility] CLIA [id number] [address] [place], [place] [address] [place] PT panel Coag (PPP)on 2023 INR Coag (PPP) [Relative time] 2.3 {INR} High 0.9-1.3 [facility] Comment on above: Order Comment: Cole lamas Type: BLOOD SPECIMEN Ordering Facility: [facility] Address: [address] [place] [address] [place] [address] Result Comment: Roma min K Antagonist (VKA) Therapeutic Range: INR 2 to 3 (Target INR of 2.5) Note: For patients treated with VKA drugs, such as warfarin, the [place] [employer] 2012 Guideline recommends a therapeutic INR range of 2 to 3 (target INR of 2.5). This recommendation includes high-risk patients with antiphospholipid syndrome with previous arterial or venous thromboembolism, current-generation mechanical or bioprosthetic aortic heart valve replacement. Note: Patients with mechanical aortic valve replacement and additional risk factors for thromboembolic events (atrial fibrillation, previous thromboembolism, LV dysfunction, hypercoagulable conditions) or an older generation mechanical AVR (i.e., ball in-Cage) or any mechanical MVR should have a INR therapeutic range of 2.5 to 3.5 (target INR of 3). Raghavendra GH, et al. Chest 2012, 141:7S-47S Diomedes RA, et al. [facility] 2017, 70: 252-289 Performed By: #### 2 4323-8, #### [facility] CLIA [id number] [address] [place] [address] [place] PT Coag (PPP) [Time] 23.1 s High 9.7-13.0 [facility] Comment on above: Order Comment: Speci men Type: BLOOD SPECIMEN Ordering Facility: [facility] Address: [address] [place] [address] Performed By: #### 2 4323-8, #### [facility] CLIA [id number] [address] [place] [address] [place] Phosphate SerPl-mCncon 11-20 Phosphate [Mass/Vol] 2.5 mg/dL Normal 2.5-4.9 [facility] Comment on above: Order Comment: Speci men Type: BLOOD SPECIMEN Ordering Facility: [facility] Address: [address] [place] [address] Result Comment: Elev ated m-protein (paraprotein) levels in the serum may be exhibited in patients with monoclonal gammopathies, causing falsely elevated inorganic phosphorus results. Performed By: #### 2 4323-8, #### [facility] CLIA [id number] [address] [place] [address] [place] THERAPY NTon 11-20-2023 THERAPY NT HNO ID: [id number] Author: DEV RODRIGUEZ, RECORDS AND INFORMATION MANAGER Service: Respiratory Therapy Author Type: Registered Resp Therapist Type: Therapy (PT/OT/Speech/Resp) Filed: 11/20/2023 01:26 Note Text: Pt ripped off mask and stated she couldn't breathe RN told her how important it was for her to wear at this time due to O2 issues. Pt will not go back on at this time. Normal [facility] XR CHEST 1V FRONTALon 2023 XR CHEST 1V FRONTAL * * *Final Report* * * DATE OF EXAM: Nov 20 2023 6:49AM RHX [id number] - XR CHEST 1V FRONTAL / PROCEDURE REASON: Shortness of breath * * * * Physician Interpretation * * * * EXAMINATION: CHEST RADIOGRAPH (SINGLE VIEW AP OR PA) CLINICAL HISTORY: Shortness of breath MQ: XC1_5 Comparison: 11/19/2023 RESULT: The cardiomediastinal silhouette is stable. Pulmonary vasculature is not significantly congested. Interstitial and alveolar opacities bilaterally, right greater than left are similar to prior. No significant pleural fluid. No pneumothorax. IMPRESSION: No significant change. Analytic Programmer: PSCB Transcribe Date/Time: Nov 20 2023 7:04A Dictated by : MIREYA BLANC MD This examination was interpreted and the report reviewed and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 educated on breathing oxygen in her nose. Dr Peterson to bedside. [facility] ED NOTE HNO ID: [id number] Author: JOSIANE HUTCHISON RN Service: Emergency Medicine Author Type: Registered Nurse Type: ED Notes Filed: 11/18/2023 09:19 Note Text: Patient requesting to walk to the restroom, patient assisted to the restroom [facility] ED NOTE HNO ID: [id number] Author: JOSIANE HUTCHISON RN Service: Emergency Medicine Author Type: Registered Nurse Type: ED Notes Filed: 11/18/2023 09:19 Note Text: Meal tray given [facility] ED NOTE HNO ID: [id number] Author: JOSIANE HUTCHISON RN Service: Emergency Medicine Author Type: Registered Nurse Type: ED Notes Filed: 11/18/2023 08:02 Note Text: This nurse woke patient up, patient repositioned. Oxygen placed back on. Meal tray ordered. Patient denies other needs at this time. [facility] ED NOTE HNO ID: [id number] Author: JIMI DOMINGUEZ RN Service: Emergency Medicine Author Type: Registered Nurse Type: ED Notes Filed: 11/18/2023 05:37 Note Text: Patient removed oxygen and will not keep pulse ox on. Call light remains in reach. SRx2 up. [facility] ED NOTE HNO ID: [id number] Author: JIMI DOMINGUEZ RN Service: Emergency Medicine Author Type: Registered Nurse Type: ED Notes Filed: 11/18/2023 05:08 Note Text: MD speaking with patient regarding pain control. [facility] ED NOTE HNO ID: [id number] Author: JIMI DOMINGUEZ RN Service: Emergency Medicine Author Type: Registered Nurse Type: ED Notes Filed: 11/18/2023 04:33 Note Text: Patient ambulatory to with steady gait- po fluids given. Call light in reach [facility] ED NOTE HNO ID: [id number] Author: JIMI DOMINGUEZ RN Service: Emergency Medicine Author Type: Registered Nurse Type: ED Notes Filed: 11/18/2023 02:50 Note Text: Oxygen sats improved with oxygen while resting/sleeping to 96% on 2 liters [facility] ED NOTE HNO ID: [id number] Author: JIMI DOMINGUEZ RN Service: Emergency Medicine Author Type: Registered Nurse Type: ED Notes Filed: 11/18/2023 02:47 Note Text: Patient falling asleep and oxygen sats drop to 87-88% - oxygen applied at 2 liters [facility] ED NOTE HNO ID: [id number] Author: JIMI DOMINGUEZ RN Service: Emergency Medicine Author Type: Registered Nurse Type: ED Notes Filed: 11/18/2023 02:30 Note Text: 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 Advised patient she just had motrin at [phone]. Patient requesting TV on. [facility] ED NOTE HNO ID: [id number] Author: JIMI DOMINGUEZ RN Service: Emergency Medicine Author Type: Registered Nurse Type: ED Notes Filed: 11/18/2023 02:59 Note Text: Sprite given along with jello and pudding. Call light in reach. No n/v [facility] ED NOTE HNO ID: [id number] Author: JIMI DOMINGUEZ RN Service: Emergency Medicine Author Type: Registered Nurse Type: ED Notes Filed: 11/18/2023 01:42 Note Text: Patient fire prevention inspector light - patient given another blanket. Patient requesting personal cell phone which was charging and given to patient. [facility] ED NOTE HNO ID: [id number] Author: JIMI DOMINGUEZ RN Service: Emergency Medicine Author Type: Registered Nurse Type: ED Notes Filed: 11/18/2023 01:10 Note Text: Patient upset and stating I should just leave if he is not going to give me something stronger for my pain all over This nurse advised patient she has every right to leave AMA but it is in her best interest and health if she stays and gets admitted. This nurse updated patient also on bed status at [facility] and that it could possibly be in the morning before we get a bed. Call light in reach. [facility] ED NOTE HNO ID: [id number] Author: JIMI DOMINGUEZ RN Service: Emergency Medicine Author Type: Registered Nurse Type: ED Notes Filed: 11/18/2023 00:48 Note Text: Patient requesting more pain meds and/or something to sleep. MD at bedside talking with patient [facility] HIGH SENSITIVITY TROPONIN T (THIRD) 3 HRS AFTER INITIALon 11-18-2023 Troponin T.cardiac High sensitivity method [Mass/Vol] 13 ng/L High <12 [facility] Comment on above: Order Comment: Speci men Type: BLOOD SPECIMEN Ordering Facility: [facility] Address: [facility] ANABELLJOSE MMelodie JOSHUA, [place] [address] Result Comment: When assessing risk for acute coronary syndromes: In patients undergoing blood draw greater than or equal to 2 hours from symptom onset, with history of very low to moderate risk and non-ischemic ECG, an initial hs-Troponin T less than 12 ng/L AND a 1 hour delta hs-Troponin T less than 3 ng/L should be considered very low risk for 30 day MACE. Performed By: #### L [id number] #### [facility] CLIA [id number] [address] [place] [address] [facility] 11-17-2023 [facility] HNO ID: [id number] Author: MAURICE KUHN TECHNOLOGIST Service: Radiology Author Type: Technologist Type: Allied Health Filed: 11/17/2023 20:44 Note Text: Radiology Service Progress Note PATIENT NAME: Carolina Hightower DATE OF SERVICE: November 17, 2023 TIME: 8:44 PM PATIENT IDENTITY VERIFICATION COMPLETED USING TWO (2) IDENTIFIERS: Name and Date of confirmed by patient verbally and Name and Date of confirmed by identification band. FALL SCREENING: Has the patient had 2 falls in the last year or 1 fall with injury or currently using an Ambulatory Assistive Device (Walker, Cane, Wheelchair, Crutches, etc.)? Emergency Room Patient: Screened in ED PATIENT GENDER DATA: Female. status: : No status: NO. PATIENT RELEVANT IMPLANT DATA REVIEWED: Yes PATIENT PRESENTS WITH AN IMPLANTABLE OR ATTACHED STUDENT LIFE VICE PRESIDENT: No RADIOLOGY DEPARTMENT: CT; Exam(s) Completed: Brain and General X-ray: Exam(s) Completed: Chest X-Ray PERIPHERAL IV DATA: Not applicable SIGNED BY: TECHNOLOGIST Marina November 17, 2023 8:[address] [facility] APAP SerPl-mCncon 11-17-2023 Acetaminophen [Mass/Vol] 8 ug/mL Low 10-30 [facility] Comment on above: Order Comment: Speci men Type: BLOOD SPECIMEN Ordering Facility: [facility] Address: [address] [place], [place] [id number] Result Comment: Toxi c > 150 ug/mL 4 hours post ingestion The [address] Varghese nomogram can be used to estimate the probability of hepatotoxicity via the relationship of plasma acetaminophen concentration to the post ingestion interval. (Sara. Pediatrics. 1975. 55:[address] et al[address] Arch Executive Asst Med. 1981. 141:380 to 385). Reference ranges and high/low indicator flags are provided as general guidelines only. The treating physician must determine appropriate target levels/dosing based on the specific clinical situation. Performed By: #### 5 643-2, 4024-6, 3298-7 #### [facility] CLIA [id number] [address] [place] [address] [place] [facility] CBC W Auto Differential pane l (Bld)on 11-17-2023 Basophils (Bld) [#/Vol] 0.03 10*3/uL Normal <0.11 [facility] Comment on above: Order Comment: Speci men Type: BLOOD SPECIMEN Ordering Facility: [facility] Address: [address] [place] [address] Performed By: #### 5 7021-8 #### [facility] CLIA [id number] [address] [place] [address] [place] Basophils/100 WBC (Bld) 0.3 % Normal [facility] Comment on above: Order Comment: Speci men Type: BLOOD SPECIMEN Ordering Facility: [facility] Address: [address] [place] [address] Result Comment: Diff erential confirmed by visual scan of peripheral blood smear slide. Performed By: #### 5 7021-8 #### [facility] CLIA [id number] [address] [place] [address] STATES [facility] Differential cell count method Nom (Bld) Auto Normal [facility] Comment on above: Order Comment: Speci men Type: BLOOD SPECIMEN Ordering Facility: [facility] Address: [address] [place] [address] Performed By: #### 5 7021-8 #### [facility] CLIA [id number] [address] [place] [address] [place] Eosinophils (Bld) [#/Vol] 0.09 10*3/uL Normal <0.46 [facility] Comment on above: Order Comment: Speci men Type: BLOOD SPECIMEN Ordering Facility: [facility] Address: [address] [place] [address] Performed By: #### 5 7021-8 #### [facility] CLIA [id number] [address] [place] [address] [place] Eosinophils/100 WBC (Bld) 0.8 % Normal [facility] Comment on above: Order Comment: Speci men Type: BLOOD SPECIMEN Ordering Facility: [facility] Address: [address] [place] [address] Performed By: #### 5 7021-8 #### [facility] CLIA [id number] [address] [place] [id number] [place] Erythrocyte distribution width (RBC) [Ratio] 23.6 % High 11.5-15.0 [facility] Comment on above: Order Comment: Speci men Type: BLOOD SPECIMEN Ordering Facility: [facility] Address: [address] [place] [address] Performed By: #### 5 7021-8 #### [facility] CLIA [id number] [address] [place] [id number] [place] Hematocrit (Bld) [Volume fraction] 33.8 % Low 36.0-46.0 [facility] Comment on above: Order Comment: Speci men Type: BLOOD SPECIMEN Ordering Facility: [facility] Address: [address] [place] [address] Performed By: #### 5 7021-8 #### [facility] CLIA [id number] [address] [place] [phone] [place] Hemoglobin (Bld) [Mass/Vol] 10.3 g/dL Low 11.5-15.5 [facility] Comment on above: Order Comment: Speci men Type: BLOOD SPECIMEN Ordering Facility: [facility] Address: [address] [place] [address] Performed By: #### 5 7021-8 #### [facility] CLIA [id number] [address] [place] [phone] [place] Immature granulocytes (Bld) [#/Vol] 0.08 10*3/uL Normal <0.10 [facility] Comment on above: Order Comment: Speci men Type: BLOOD SPECIMEN Ordering Facility: [facility] Address: [address] [place] [address] Performed By: #### 5 7021-8 #### [facility] CLIA [id number] [address] [place] [address] [facility] [place] Immature granulocytes/100 WBC (Bld) 0.7 % Normal [facility] Comment on above: Order Comment: Speci men Type: BLOOD SPECIMEN Ordering Facility: [facility] Address: [address] [place] [address] Performed By: #### 5 7021-8 #### [facility] CLIA [id number] [address] [place] [address] [place] Lymphocytes (Bld) [#/Vol] 2.43 10*3/uL Normal 1.00-4.00 [facility] Comment on above: Order Comment: Speci men Type: BLOOD SPECIMEN Ordering Facility: [facility] Address: [address] [place] [address] Performed By: #### 5 7021-8 #### [facility] CLIA [id number] [address] STATES [facility] Lymphocytes/100 WBC (Bld) 21.1 % Normal [facility] Comment on above: Order Comment: Speci men Type: BLOOD SPECIMEN Ordering Facility: [facility] Address: [address] [place] [address] Performed By: #### 5 7021-8 #### [facility] CLIA [id number] [address] [place] [address] [place] MCH (RBC) [Entitic mass] 23.7 pg Low 26.0-34.0 [facility] Comment on above: Order Comment: Speci men Type: BLOOD SPECIMEN Ordering Facility: [facility] Address: [address] [place] [address] Performed By: #### 5 7021-8 #### [facility] CLIA [id number] [address] [place] [address] [place] MCHC (RBC) [Mass/Vol] 30.5 g/dL Normal 30.5-36.0 [facility] Comment on above: Order Comment: Speci men Type: BLOOD SPECIMEN Ordering Facility: [facility] Address: [address] [place] [address] Performed By: #### 5 7021-8 #### [facility] CLIA [id number] [address] [place] [address] [place] MCV (RBC) [Entitic vol] 77.7 fL Low 80.0-100.0 [facility] Comment on above: Order Comment: Speci men Type: BLOOD SPECIMEN Ordering Facility: [facility] Address: [address] [place] [address] Performed By: #### 5 7021-8 #### [facility] CLIA [id number] [address] [place] [address] [place] Monocytes (Bld) [#/Vol] 1.40 10*3/uL High <0.87 [facility] Comment on above: Order Comment: Speci men Type: BLOOD SPECIMEN Ordering Facility: [facility] Address: [address] [place] [address] Performed By: #### 5 7021-8 #### [facility] CLIA [id number] [address] [place] [address] [place] Monocytes/100 WBC (Bld) 12.2 % Normal [facility] Comment on above: Order Comment: Speci men Type: BLOOD SPECIMEN Ordering Facility: [facility] Address: [address] [place] [address] Performed By: #### 5 7021-8 #### [facility] CLIA [id number] [address] [place] [address] [place] Neutrophils (Bld) [#/Vol] 7.47 10*3/uL Normal 1.45-7.50 [facility] Comment on above: Order Comment: Speci men Type: BLOOD SPECIMEN Ordering Facility: [facility] Address: [address] [place] [address] Performed By: #### 5 7021-8 #### [facility] CLIA [id number] [address] [place] [address] [place] Neutrophils/100 WBC (Bld) 64.9 % Normal [facility] Comment on above: Order Comment: Speci men Type: BLOOD SPECIMEN Ordering Facility: [facility] Address: [address] [place] [address] Performed By: #### 5 7021-8 #### [facility] CLIA [id number] [address] [place] [address] [place] Nucleated RBC (Bld) [#/Vol] Normal [facility] Comment on above: Order Comment: Speci men Type: BLOOD SPECIMEN Ordering Facility: [facility] Address: [address] [place] [address] Performed By: #### 5 7021-8 #### [facility] CLIA [id number] [address] [place] [address] [place] Nucleated RBC/100 WBC (Bld) [Ratio] Normal [facility] Comment on above: Order Comment: Speci men Type: BLOOD SPECIMEN Ordering Facility: [facility] Address: [address] [place] [address] Performed By: #### 5 7021-8 #### [facility] CLIA [id number] [address] [place] [address] [place] Platelet mean volume (Bld) [Entitic vol] 9.8 fL Normal 9.0-12.7 [facility] Comment on above: Order Comment: Speci men Type: BLOOD SPECIMEN Ordering Facility: [facility] Address: [address] [place] [address] Performed By: #### 5 7021-8 #### [facility] CLIA [id number] [address] [place] [address] [place] Platelets (Bld) [#/Vol] 112 10*3/uL Low 150-400 [facility] Comment on above: Order Comment: Speci men Type: BLOOD SPECIMEN Ordering Facility: [facility] Address: [address] [place] [address] Result Comment: no c lot detected Platelet Abnormal Distribution.Reviewed. Performed By: #### 5 7021-8 #### [facility] CLIA [id number] [address] [place] [address] [facility] RBC (Bld) [#/Vol] 4.35 10*6/uL Normal 3.90-5.20 [facility] Comment on above: Order Comment: Speci men Type: BLOOD SPECIMEN Ordering Facility: [facility] Address: [address] [place] [address] Performed By: #### 5 7021-8 #### [facility] CLIA [id number] [address] [place] [address] [facility] WBC (Bld) [#/Vol] 11.50 10*3/uL High 3.70-11.00 [facility] Comment on above: Order Comment: Speci men Type: BLOOD SPECIMEN Ordering Facility: [facility] Address: [address] [place] [address] Performed By: #### 5 7021-8 #### [facility] CLIA [id number] [address] [place] [id number] [facility] CT BRAIN WO IVCONon 11-17-[address] BRAIN WO IVCON * * *Final Report* * * DATE OF EXAM: Nov 17 2023 8:40PM [facility] 0504 - CT BRAIN WO IVCON / PROCEDURE REASON: Mental status change, unknown cause * * * * Physician Interpretation * * * * EXAMINATION: CT BRAIN WO IVCON CLINICAL HISTORY: Mental status change TECHNIQUE: Serial axial images without IV contrast were obtained from the vertex to the foramen magnum. MQ: CTBWO_3 CT Radiation dose: Integrated Dose-Length Product (DLP) for this visit = 617.94 mGy*cm CT Dose Reduction Employed: Automated exposure control(AEC) and iterative recon COMPARISON: None. RESULT: Mobile Device Engineer (topogram) images: No additional findings. Post-operative change: None. Acute change: No evidence of an acute infarct or other acute parenchymal process. Hemorrhage: No evidence of acute intracranial hemorrhage. ECASS hemorrhagic transformation score: Not Applicable Mass Lesion / Mass Effect: There is no evidence of an intracranial mass or extraaxial fluid collection. No significant mass effect. Chronic change: None apparent. Parenchyma: There is no significant volume loss. The brain parenchyma is otherwise within normal limits for age. Ventricles: The ventricles are within normal limits of size and configuration for age. Paranasal sinuses and skull base: The visualized paranasal sinuses are grossly clear. The skull base and imaged soft tissues are unremarkable. IMPRESSION: No acute intracranial abnormality. Analytic Programmer: PSCB Transcribe Date/Time: Nov 17 2023 8:41P Dictated by : MAYITO STEVENS MD This examination was interpreted and the report reviewed and electronically signed by: MAYITO STEVENS MD on Nov 17 2023 8:47PM EST [id number] Normal [facility] Comprehensive metabolic 2000 panelon 11-17-2023 Albumin [Mass/Vol] 2.6 g/dL Low 3.9-4.9 [facility] Comment on above: Order Comment: Cole lamas Type: BLOOD SPECIMEN [facility]ing Facility: [facility] Address: [address] [place] [address] Performed By: #### 2 4323-8, 3040-3, 22209-4, 86769-5 #### [facility] CLIA [id number] [address] [place] [address] [place] ALP [Catalytic activity/Vol] 245 U/L High 34-123 [facility] Comment on above: Order Comment: Cole lamas Type: BLOOD SPECIMEN [facility]ing Facility: [facility] Address: [address] [place] [address] Performed By: #### 2 4323-8, 3040-3, 18894-7, 11422-2 #### [facility] CLIA [id number] [address] [place] [address] [place] ALT With P-5'-P [Catalytic activity/Vol] 29 U/L Normal 7-38 [facility] Comment on above: Order Comment: Cole lamas Type: BLOOD SPECIMEN Ordering Facility: [facility] Address: [address] [place] [address] Performed By: #### 2 4323-8, 3040-3, 77073-4, 49566-4 #### [facility] CLIA [id number] [address] [place] [address] [place] Anion gap [Moles/Vol] 9 mmol/L Normal 9-18 [facility] Comment on above: Order Comment: Speci men Type: BLOOD SPECIMEN Ordering Facility: [facility] Address: [address] [place] [address] Performed By: #### 2 4323-8, 3040-3, 80835-2, 06550-3 #### [facility] CLIA [id number] [address] [place] [address] [place] AST With P-5'-P [Catalytic activity/Vol] 78 U/L High 13-35 [facility] Comment on above: Order Comment: Speci men Type: BLOOD SPECIMEN Ordering Facility: [facility] Address: [address] [place] [address] Performed By: #### 2 4323-8, 3040-3, 12394-8, 84649-6 #### [facility] CLIA [id number] [address] [place] [address] [place] Bilirubin [Mass/Vol] 3.0 mg/dL High 0.2-1.3 [facility] Comment on above: Order Comment: Speci men Type: BLOOD SPECIMEN [facility]ing Facility: [facility] Address: [address] [place] [address] Performed By: #### 2 4323-8, 3040-3, 44755-7, 62413-5 #### [facility] CLIA [id number] [address] [place] [address] [place] Calcium [Mass/Vol] 8.6 mg/dL Normal 8.5-10.2 [facility] Comment on above: Order Comment: Speci men Type: BLOOD SPECIMEN [facility]ing Facility: [facility] Address: [address] [place] [address] Performed By: #### 2 4323-8, 3040-3, 98503-4, 45438-7 #### [facility] CLIA [id number] [address] [place] [address] [place] Chloride [Moles/Vol] 101 mmol/L Normal 97-105 [facility] Comment on above: Order Comment: Cole lamas Type: BLOOD SPECIMEN Ordering Facility: [facility] Address: [address] [place] [address] Performed By: #### 2 4323-8, 3040-3, 79985-3, 38018-7 #### [facility] CLIA [id number] [address] [place] [address] [place] CO2 [Moles/Vol] 24 mmol/L Normal 22-30 [facility] Comment on above: Order Comment: Cole lamas Type: BLOOD SPECIMEN Ordering Facility: [facility] Address: [address] [place] [address] Performed By: #### 2 4323-8, 3040-3, 63298-9, 08701-4 #### [facility] CLIA [id number] [address] [place] [id number] [facility] Creatinine [Mass/Vol] 0.72 mg/dL Normal 0.58-0.96 [facility] Comment on above: Order Comment: Cole lamas Type: BLOOD SPECIMEN Ordering Facility: [facility] Address: [address] [place] [address] Performed By: #### 2 4323-8, 3040-3, 21862-1, 59069-4 #### [facility] CLIA [id number] [address] [place] [address] [facility] Creatinine and Glomerular filtration rate.predicted panel (S/P/Bld) 102 mL/min/1.73m??? Normal >=60 [facility] Comment on above: Order Comment: Cole lamas Type: BLOOD SPECIMEN Ordering Facility: [facility] Address: [address] [place] [address] Result Comment: Connie mated Glomerular Filtration Rate (eGFR) is calculated using the 2020 CKD-EPI creatinine equation. This equation utilizes serum creatinine, sex, and age as parameters. The creatinine assay has traceable calibration to isotope dilution-mass spectrometry. Refer to KDIGO guidelines for clinical interpretation. In patients with unstable renal function, e.g. those with acute kidney injury, the eGFR may not accurately reflect actual GFR. Performed By: #### 2 4323-8, 3040-3, 95734-2, 59218-5 #### [facility] CLIA [id number] [address] [facility] [place] [address] [place] Glucose [Mass/Vol] 121 mg/dL High 74-99 [facility] Comment on above: Order Comment: Cole lamas Type: BLOOD SPECIMEN Ordering Facility: [facility] Address: [address] [place] [address] Result Comment: The [place] Diabetes [employer] (ADA) provides guidance for cutoff values for fasting glucose and random glucose. The ADA defines fasting as no caloric intake for at least 8 hours. Fasting plasma glucose results between 100 to 125 mg/dL indicate increased risk for diabetes (prediabetes). Fasting plasma glucose results greater than or equal to 126 mg/dL meet the criteria for diagnosis of diabetes. In the absence of unequivocal hyperglycemia, results should be confirmed by repeat testing. In a patient with classic symptoms of hyperglycemia or hyperglycemic crisis, random plasma glucose results greater than or equal to 200 mg/dL meet the criteria for diagnosis of diabetes. Reference: Standards of Medical Care in Diabetes 2016, [place] [employer] Association. Diabetes Care. 2016.39(Suppl 1). Performed By: #### 2 4323-8, 0-3, 06554-3, 04037-6 #### [facility] CLIA [id number] [address] [place] [address] [place] Potassium [Moles/Vol] 4.0 mmol/L Normal 3.7-5.1 [facility] Comment on above: Order Comment: Cole lamas Type: BLOOD SPECIMEN Ordering Facility: [facility] Address: [address] [place] [address] Performed By: #### 2 4323-8, 3040-3, 69040-9, 08777-0 #### [facility] CLIA [id number] [address] [place] [address] [place] Protein [Mass/Vol] 7.8 g/dL Normal 6.3-8.0 [facility] Comment on above: Order Comment: Speci men Type: BLOOD SPECIMEN Ordering Facility: [facility] Address: [address] [place] [address] Performed By: #### 2 4323-8, 3040-3, 49112-6, 29246-8 #### [facility] CLIA [id number] [address] [place] [address] [place] Sodium [Moles/Vol] 134 mmol/L Low 136-144 [facility] Comment on above: Order Comment: Speci men Type: BLOOD SPECIMEN [facility]ing Facility: [facility] Address: [address] [place] [address] Performed By: #### 2 4323-8, 3040-3, 86314-9, 38474-6 #### [facility] CLIA [id number] [address] [place] [address] [place] Urea nitrogen [Mass/Vol] 9 mg/dL Normal 7-21 [facility] Comment on above: Order Comment: Speci men Type: BLOOD SPECIMEN Ordering Facility: [facility] Address: [address] [place] [address] Performed By: #### 2 4323-8, 3040-3, 90354-3, 36484-6 #### [facility] CLIA [id number] [address] [place] [address] [place] ECG COMPLETEon 11-17-2023 ECG COMPLETE Ventricular Rate : 8 2 BPM Atrial Rate : 82 BPM P-R Interval : 152 ms QRS Duration : 74 ms Q-T Interval : 400 ms QTC Calculation(Bazett) : 467 ms Calculated P [place] : 63 degrees Calculated R [place] : 2 degrees Calculated T [place] : 65 degrees NORMAL SINUS RHYTHM NONSPECIFIC ST-T WAVE CHANGES CANNOT RULE OUT ANTERIOR INFARCT , AGE UNDETERMINED ABNORMAL ECG NO PREVIOUS ECGS AVAILABLE Confirmed by MD BENZ VINAYAK ([id number]) on 11/22/2023 8:00:16 AM NAME : CAROLINA HIGHTOWER PID : [id number] : 1975 Gender : Female Race : ORD : [id number] Procedure Date : Nov 17 2023 19:48:43 Edit Date : Nov 22 2023 08:00:20 Diagnosis: NORMAL SINUS RHYTHM NONSPECIFIC ST-T WAVE CHANGES CANNOT RULE OUT ANTERIOR INFARCT , AGE UNDETERMINED ABNORMAL ECG NO PREVIOUS ECGS AVAILABLE Confirmed by MD BENZ VINAYAK ([id number]) on 11/22/2023 8:00:16 AM Test Reason : Chest Pain Location : 191 : [facility] ED Overread By : MD BENZ VINAYAK Edited By : MD BENZ VINAYAK Referred By : , Acquired by : TRESA NGUYEN [facility] ED NOTEon 11-17-2023 ED NOTE HNO ID: [id number] Author: JIMI DOMINGUEZ RN Service: Emergency Medicine Author Type: Registered Nurse Type: ED Notes Filed: 11/17/2023 20:40 Note Text: Patient absolutely refuses to go to [place] or [place] or [facility]. MD notified [facility] ED NOTE HNO ID: [id number] Author: JIMI DOMINGUEZ RN Service: Emergency Medicine Author Type: Registered Nurse Type: ED Notes Filed: 11/17/2023 20:18 Note Text: Patient ambulatory to with steady gait. Urine obtained and sent [facility] ED NOTE HNO ID: [id number] Author: JIMI DOMINGUEZ RN Service: Emergency Medicine Author Type: Registered Nurse Type: ED Notes Filed: 11/17/2023 19:42 Note Text: Patient brought to ER by daughter - patient states seen at [facility] and per her PCP told to go to another ER. Per daughter patient is confused, abd swelling and SOB and dizziness with frequent falls. Monitor applied. EKG obtained.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 bedtime. Meds Comments as of 05/15/2022: Pt reports she took last dose of doxycycline this morning 05/15/2022 Problem List As Of Date 11/07/2023 Noted Resolved Major depression [F32.9] 04/03/2007 LUMBAGO [M54.50] 02/12/2008 Insomnia [G47.00] 07/02/2009 GERD (gastroesophageal reflux disease) [K21.9] 08/24/2010 Myofascial pain [M79.18] 12/10/2011 Physical deconditioning [R53.81] 12/10/2011 Lumbar strain [S39.012A] 12/10/2011 Tobacco abuse [Z72.0] 04/14/2017 Retroperitoneal bleed [R58] 08/05/2018 Chronic hepatitis C without hepatic coma (HCC) *08/05/2018 Encounter Status:Closed by DACIA ACOSTA on 11/07/23 [facility] 11-03-2023 CNPN Telephone (FAMPWS) CAROLINA HIGHTOWER ([id number]) 1975 F Date Time Provider Department 11/03/23 [facility] During your visit today, we recorded the following information about you: Zakia Hughes RN 11/03/2023 2:45 PM Signed Patient calls to report that since starting [...] access to test. Please review and advise, NASH Laurent Cara R, PA-C 11/03/2023 3:04 PM Signed I sent Zofran to help with the nausea. Would recommend continuing the mupirocin and doxycycline. Recommended yesterday that she put a large bandage over the wound so she cannot pick at it. At this point she needs to follow-up with PCP or dermatology for chronic skin issue. Maye Younger LPN 11/03/2023 3:18 PM Signed TC to Pt. Unable to LM due to the mailbox is full. Sent a My Chart message. GERTRUDE Matt Krystle, RN 11/03/2023 3:57 PM Signed Patient returns call and provider message reviewed. Patient verbalizes understanding and will call back if wants to schedule appointment with PCP. Zakia Hughes RN Allergies As of Date: 11/03/2023 Noted Allergy Reaction ASPIRIN 06/02/2005 Comments: UNCERTAIN =CHILDHOOD BUPROPION 06/11/2019 14 - Other: See Comments CODEINE 06/02/2005 2 - Rash PREDNISONE 06/19/2019 2 - Rash WELLBUTRIN (BUPROPION HCL) 09/29/2012 14 - Other: See Comments Comments: seizures Date Reviewed: 11/01/2023 Reviewed by: Soledad Shook LPN - Fully Assessed Reason for Visit: Patient Question [1715] Order(s):ondansetron orally disintegrating (ZOFRAN ODT) 4 mg disintegrating tabletTake 1 tablet by mouth every 8 hours as needed.Disp: 12 tabletRfl: 0 Prescriptions as of 11/03/2023 - ondansetron orally disintegrating (ZOFRAN ODT) 4 mg disintegrating tablet Take 1 tablet by mouth every 8 hours as needed. - doxycycline (VIBRA-TABS) 100 mg tablet Take 1 tablet by mouth two times a day for 7 days. - mupirocin (BACTROBAN) 2 % ointment Apply to affected area three times a day for 5 days. - gabapentin (NEURONTIN) 100 mg capsule Take 1 capsule by mouth twice daily for 180 days. - cyclobenzaprine (FLEXERIL) 10 mg tablet Take 1 tablet by mouth three times daily as needed for muscle spasm or pain. - pantoprazole DR (PROTONIX) 40 mg tablet Take 1 tablet by mouth twice daily before meals. Take on empty stomach, 1/2 hr before meal. - cholecalciferol, Vitamin D3, (VITAMIN D3) 1,250 mcg (50,000 unit) cap capsule Take 1 capsule by mouth one time a week. - ondansetron orally disintegrating (ZOFRAN ODT) 4 mg disintegrating tablet Take 1 tablet by mouth every 6 hours as needed for nausea/vomiting. - traZODone (DESYREL) 100 mg tablet Take 1 tablet by mouth daily at bedtime. - lactulose (DUPHALAC, CONSTULOSE) 10 gram/15 mL solution TAKE 30 ML BY MOUTH TWICE DAILY - nicotine (NICODERM) 21 mg/24 hr - albuterol HFA (PROAIR HFA) 90 mcg/actuation inhaler Inhale 2 Puffs as instructed every 4 hours as needed. - desvenlafaxine ER (PRISTIQ) 100 mg 24 hr tablet - furosemide (LASIX) 20 mg tablet Take 1 tablet by mouth once daily. - topiramate (TOPAMAX) 100 mg tablet - doxepin capsule 10 mg Take 1 capsule by mouth daily at bedtime. Meds Comments as of 05/15/2022: Pt reports she took last dose of doxycycline this morning 05/15/2022 Problem List As Of Date 11/03/2023 Noted Resolved Major depression [F32.9] 04/03/2007 LUMBAGO [M54.50] 02/12/2008 Insomnia [G47.00] 07/02/2009 GERD (gastroesophageal reflux disease) [K21.9] 08/24/2010 Myofascial pain [M79.18] 12/10/2011 Physical deconditioning [R53.81] 12/10/2011 Lumbar strain [S39.012A] 12/10/2011 Tobacco abuse [Z72.0] 04/14/2017 Retroperitoneal bleed [R58] 08/05/2018 Chronic hepatitis C without hepatic coma (HCC) *08/05/2018 Prescriptions ordered this encounter Disp Refills Start End ONDANSETRON 4 MG DISINTEGRATING TABL* 12 t* 0 11/03/2023 Route: ORAL Sig: Take 1 tablet by mouth every 8 hours as needed. Encounter Status:Closed by ZAKIA HUGHES on 11/03/23 [facility] CNOVon 11-01-2023 CNOV Office Visit (UCWSTR ) CAROLINA HIGHTOWER ([id number]) 1975 F Date Time Provider Department 11/01/23 3:30 PM [facility] During your visit today, we recorded the following information about you: Temperature Pulse Respiration Blood pressure 97.5 degrees 82/minute 20/minute 119/86 Weight 92.1 kg Williams Salvador PA-C 11/01/2023 4:05 PM Signed [facility] [address], [place] [phone] Williams Salvador PA-C 11/01/2023 4:28 PM Signed This note was created using Ideal Mer[employer]. Subjective Carolina Hightower is a 48 year [...] PAST SURGICAL HISTORY OF 2018 liver bx [facility] FAMILY HISTORY Problem Relation Age of [...] ICD9: 879.8, ICD10: T14.8XXA Discussed putting a (more content not included)... Normal [facility] CNCOon 09-22-2023 CNCO Letter Text Normal [facility] 36on 09-20-2023 36 Unable to contact patient X2 Normal [facility] 36on 09-16-2023 36 S: Patient admitted to: [facility] 09/09/23 B: Discharged on : 09/15/23 A: Hospital follow up call initiated to discuss any medication changes, follow up appointments and discharge instructions: Small bowel obstruction R: No contact x 1 at : [phone] Normal [facility] BASIC METABOLIC PANELon - Anion gap [Moles/Vol] 5 mmol/L Normal - [facility] Comment on above: Performed By: #### L AB15 ####Harvest Manager: HALLEY HERNANDEZ ([phone])[address] Calcium [Mass/Vol] 8.3 mg/dL Low 8.4-10.4 [facility] Comment on above: Performed By: #### L AB15 ####Harvest Manager: HALLEY HERNANDEZ ([phone])[address] Chloride [Moles/Vol] 107 mmol/L Normal 98-107 [facility] Comment on above: Performed By: #### L AB15 ####Harvest Manager: HALLEY HERNANDEZ ([phone])[facility])[address] [place] [address] CO2 [Moles/Vol] 23 mmol/L Normal 22-30 [facility] Comment on above: Performed By: #### L AB15 ####Harvest Manager: HALLEY HERNANDEZ ([phone])[facility])[address] [place] [address] Creatinine [Mass/Vol] 0.71 mg/dL Normal 0.52-1.04 [facility] Comment on above: Performed By: #### L AB15 ####Harvest Manager: HALLEY HERNANDEZ ([phone])[facility])[address] [place] [address] GLOMERULAR FILTRATION RATE ML/MIN/1.73 SQ M.PREDICTED >90.0 Normal >60.0 [facility] Comment on above: Result Comment: Calc ulation based on the Chronic Kidney Disease Epidemiology Collaboration (CKD-EPI) equation refit without adjustment for race Performed By: #### L AB15 ####Harvest Manager: HALLEY HERNANDEZ ([phone])[facility])[address] [place] [address] Glucose [Mass/Vol] 128 mg/dL High 70-100 [facility] Comment on above: Performed By: #### L AB15 ####Harvest Manager: HALLEY HERNANDEZ ([phone])[facility])[address] [place] [address] [place] Potassium [Moles/Vol] 3.4 mmol/L Low 3.5-5.1 [facility] Comment on above: Performed By: #### L AB15 ####Harvest Manager: HALLEY HERNANDEZ ([phone])[facility])[address] [place] [address] [place] Sodium [Moles/Vol] 136 mmol/L Normal 135-145 [facility] Comment on above: Performed By: #### L AB15 ####Harvest Manager: HALLEY ALEJANDROTimothy ([phone])[facility])[address] [place] [address] Urea nitrogen [Mass/Vol] 4 mg/dL Low 7-17 [facility] Comment on above: Performed By: #### L AB15 ####Harvest Manager: HALLEY ALEJANDROTimothy ([phone])[facility])[address] [place] [address] Basic metabolic 1998 panelon 09-15-2023 Anion gap [Moles/Vol] 5 mmol/L 3 - 13 mmol/L [facility] Calcium [Mass/Vol] 8.3 mg/dL Low 8.4 - 10. 4 mg/dL [facility] Chloride [Moles/Vol] 107 mmol/L 98 - 10 7 mmol/L [facility] CO2 [Moles/Vol] 23 mmol/L 22 - 30 mmol/L [facility] Creatinine [Mass/Vol] 0.71 mg/dL 0.52 - 1.04 mg/dL [facility] GFR/1.73 sq M.predicted MDRD (S/P/Bld) [Vol rate/Area] - PINF [facility] Comment on above: Calculation based on the Chronic Kidney Disease Epidemiology Collaboration (CKD-EPI) equation refit without adjustment for race Glucose [Mass/Vol] 128 mg/dL High 70 - 100 mg/dL [facility] Interpretation and review of laboratory results Abnormal [facility] Potassium [Moles/Vol] 3.4 mmol/L Low 3.5 - 5.1 mmol/L [facility] Sodium [Moles/Vol] 136 mmol/L 135 - 145 mmol/L [facility] Urea nitrogen [Mass/Vol] 4 mg/dL Low 7 - 17 mg/dL [facility] CARECOORDon 09-15-2023 [facility] Social work follow u p on discharge. SHELL notified by patients bedside RN patient needs assist with transport to home. SHELL spoke to patient to confirm address on file is correct. She reports she typically will use her [employer] for transport and uses their uber/lyft service. SHELL placed call to [employer] transport [phone]. Transport arranged for pickle maker at [address] [place] [address] between 4:12-6:12pm. They will call the unit 15 minutes prior to their arrival . Ref # [id number]. transportation worker updated patients bedside RN, who will update the patient. Normal [facility] CBC (HEMOGRAM)on 09-15-2023 Erythrocyte distribution width (RBC) [Ratio] 21.7 % High 11.5-14.5 [facility] Comment on above: Result Comment: I-An isocytosis Performed By: #### L AB294 #### Harvest Manager: HALLEY HERNANDEZ ([phone]) [facility]) [address] [place] [address] ERYTHROCYTE MEAN CORPUSCULAR HEMOGLOBIN CONCENTRATION (G/DL) BY AUTOMATED 31.5 % Low 32.0-36.0 [facility] Comment on above: Performed By: #### L AB294 #### Harvest Manager: HALLEY HERNANDEZ ([phone]) [facility]) [address] [place] [address] Hematocrit (Bld) [Volume fraction] 25.3 % Low 35.0-47.0 [facility] Comment on above: Performed By: #### L AB294 #### Harvest Manager: HALLEY HERNANDEZ ([phone]) [facility]) [address] [place] [address] Hemoglobin (Bld) [Mass/Vol] 8.0 g/dL Low 11.7-16.0 [facility] Comment on above: Performed By: #### L AB294 #### Harvest Manager: HALLEY HERNANDEZ ([phone]) [facility]) [address] [place] [address] MCH (RBC) [Entitic mass] 22.7 pg Low 26.0-34.0 [facility] [facility] Comment on above: Performed By: #### L [id number] #### Harvest Manager: HALLEY HERNANDEZ ([phone]) [facility]) [address] [place] [address] [place] MCV (RBC) [Entitic vol] 72.0 fL Low 80.0-98.0 [facility] Comment on above: Performed By: #### L [id number] #### Harvest Manager: HALLEY HERNANDEZ ([phone]) [facility]) [address] [place] [address] Platelet mean volume (Bld) [Entitic vol] 9.6 fL Normal 7.4-12.4 [facility] Comment on above: Performed By: #### L [id number] #### Harvest Manager: HALLEY HERNANDEZ ([phone]) [facility] ([facility]) [address] [place] [address] Platelets (Bld) [#/Vol] 55 10*3/uL Low 140-440 [facility] Comment on above: Result Comment: I-Th rombocytopenia Performed By: #### L [id number] #### Harvest Manager: HALLEY HERNANDEZ ([phone]) [facility] ([facility]) [address] [place] [address] RBC (Bld) [#/Vol] 3.51 10*6/uL Low 3.8-5.20 [facility] Comment on above: Performed By: #### L [id number] #### Harvest Manager: HALLEY HERNANDEZ ([phone]) [facility] ([facility]) [address] [place] [address] WBC (Bld) [#/Vol] 4.5 10*3/uL Normal 3.6-10.7 [facility] Comment on above: Performed By: #### L [id number] #### Harvest Manager: HALLEY HERNANDEZ ([phone]) [facility] ([facility]) [address] [place] [address] CBC panel Auto (Bld)on 09-15 Erythrocyte distribution width (RBC) [Ratio] 21.7 % High 11.5 - 14.5 % [facility] Comment on above: I-Anisocytosis Hematocrit (Bld) [Volume fraction] 25.3 % Low 35.0 - 47.0 % [facility] Hemoglobin (Bld) [Mass/Vol] 8.0 g/dL Low 11.7 - 16.0 g/dL [facility] Interpretation and review of laboratory results Abnormal [facility] MCH (RBC) [Entitic mass] 22.7 pg Low 26.0 - 34.0 pg [facility] MCHC (RBC) [Mass/Vol] 31.5 % Low 32.0 - 36.0 % [facility] MCV (RBC) [Entitic vol] 72.0 fL Low 80.0 - 98.0 fL [facility] Platelet mean volume (Bld) [Entitic vol] 9.6 fL 7.4 - 12.4 fL [facility] Platelets (Bld) [#/Vol] 55 10*3/uL Low 140 - 440 10*3/uL [facility] Comment on above: I-Thrombocytopenia RBC (Bld) [#/Vol] 3.51 10*6/uL Low 3.8 - 5.20 10*6/uL [facility] WBC (Bld) [#/Vol] 4.5 10*3/uL 3.6 - 10.7 10*3/uL [facility] Progress Noteon 09-15-2023 Progress Note Nutrition Assessment Type and Reason for Visit: [...] (S/p paracentesis 09/14 with 1.7L removed) Ascites [employer] R12 Developer Strength: Not Performed Nutrition Assessment: 47yo F [...] On: Kcal/kg Weight Used for Energy Requirements: [place] Weight for Energy Calculation (kg): 50 kg Total Energy Requirements (kcals/day): 27-32 kcal/kg = 7301-7911 kcal/day Weight Used for Protein Requirements: [place] Weight in Kg Used for Protein Requirements: [...] lb) (stated) % Weight Change (Calculated): 5 [place] Body Weight (lbs) (Calculated): 110 lbs [place] Body Weight (Kg) (Calculated): 50 kg % [place] Body Weight (Calculated): 190.8 % BMI (kg/m2) [...] GI Status, Fluid Status or Edema, Hemodynamic (more content not included)... Normal [facility] BASIC METABOLIC PANELon 12 Anion gap [Moles/Vol] 5 mmol/L Normal -13 [facility] Comment on above: Performed By: #### L [id number] ####Harvest Manager: HALLEY HERNANDEZ ([phone])[facility] ([address] Calcium [Mass/Vol] 8.2 mg/dL Low 8.4-10.4 [facility] Comment on above: Performed By: #### L [id number] ####Harvest Manager: HALLEY HERNANDEZ ([phone])[facility])[address] [place] [address] Chloride [Moles/Vol] 110 mmol/L High 98-107 [facility] Comment on above: Performed By: #### L [id number] ####Harvest Manager: HALLEY HERNANDEZ ([phone])[facility])[address] [place] [address] CO2 [Moles/Vol] 21 mmol/L Low 22-30 [facility] Comment on above: Performed By: #### L [id number] ####Harvest Manager: HALLEY HERNANDEZ ([phone])[facility])[address] [place] [address] Creatinine [Mass/Vol] 0.62 mg/dL Normal 0.52-1.04 [facility] Comment on above: Performed By: #### L [id number] ####Harvest Manager: HALLEY HERNANDEZ ([phone])[facility])[address] [place] [address] GLOMERULAR FILTRATION RATE ML/MIN/1.73 SQ M.PREDICTED >90.0 Normal >60.0 [facility] Comment on above: Result Comment: Calc ulation based on the Chronic Kidney Disease Epidemiology Collaboration (CKD-EPI) equation refit without adjustment for race Performed By: #### L [id number] ####Harvest Manager: HALLEY HERNANDEZ ([phone])[facility])[address] [place] [address] Glucose [Mass/Vol] 145 mg/dL High 70-100 [facility] Comment on above: Performed By: #### L [id number] ####Harvest Manager: HALLEY HERNANDEZ ([phone])[facility])[address] [place] [address] Potassium [Moles/Vol] 3.7 mmol/L Normal 3.5-5.1 [facility] Comment on above: Performed By: #### L [id number] ####Harvest Manager: HALLEY [phone])[facility] ([facility])[address] [place] [address] Sodium [Moles/Vol] 136 mmol/L Normal 135-145 [facility] Comment on above: Performed By: #### L [id number] ####Harvest Manager: HALLEY HERNANDEZ ([phone])[facility] ([facility])[address] [place] [address] Urea nitrogen [Mass/Vol] 4 mg/dL Low 7-17 [facility] Comment on above: Performed By: #### L [id number] ####Harvest Manager: HALLEY SOSALIZZ ([phone])[facility] ([facility])[address] [place] [address] Basic metabolic 1998 panelon 09-14-2023 Anion gap [Moles/Vol] 5 mmol/L 3 - 13 mmol/L [facility] Calcium [Mass/Vol] 8.2 mg/dL Low 8.4 - 10. 4 mg/dL [facility] Chloride [Moles/Vol] 110 mmol/L High 98 - 10 7 mmol/L [facility] CO2 [Moles/Vol] 21 mmol/L Low 22 - 30 mmol/L [facility] Creatinine [Mass/Vol] 0.62 mg/dL 0.52 - 1.04 mg/dL [facility] GFR/1.73 sq M.predicted MDRD (S/P/Bld) [Vol rate/Area] - PINF [facility] Comment on above: Calculation based on the Chronic Kidney Disease Epidemiology Collaboration (CKD-EPI) equation refit without adjustment for race Glucose [Mass/Vol] 145 mg/dL High 70 - 100 mg/dL [facility] Interpretation and review of laboratory results Abnormal [facility] Potassium [Moles/Vol] 3.7 mmol/L 3.5 - 5.1 mmol/L [facility] Sodium [Moles/Vol] 136 mmol/L 135 - 145 mmol/L [facility] Urea nitrogen [Mass/Vol] 4 mg/dL Low 7 - 17 mg/dL [facility] CARECOORDon 09-14-2023 CARECOWALLACE Chart reviewed. Tamie ent had paracentesis today with 1700 ml removed. Surgery is following patient for likely ileus -->no plans for intervention and recommend ADAT. Current discharge plan is home no needs once medically stable. Normal [facility] CBC (HEMOGRAM)on 09-14-2023 Erythrocyte distribution width (RBC) [Ratio] 21.3 % High 11.5-14.5 [facility] Comment on above: Result Comment: I-An isocytosis Performed By: #### L [id number] #### Harvest Manager: JAVID LUTHER ([phone]) [facility] ([facility]) [address] ERYTHROCYTE MEAN CORPUSCULAR HEMOGLOBIN CONCENTRATION (G/DL) BY AUTOMATED 31.7 % Low 32.0-36.0 [facility] Comment on above: Performed By: #### L [id number] #### Harvest Manager: JAVID LUTHER ([phone]) [facility] ([facility]) [address] Hematocrit (Bld) [Volume fraction] 24.9 % Low 35.0-47.0 [facility] Comment on above: Performed By: #### L [id number] #### Harvest Manager: JAVID LUTHER ([phone]) [facility] ([facility]) [address] Hemoglobin (Bld) [Mass/Vol] 7.9 g/dL Low 11.7-16.0 [facility] Comment on above: Performed By: #### L [id number] #### Harvest Manager: JAVID LUTHER ([phone]) [facility] ([facility]) [address] MCH (RBC) [Entitic mass] 22.9 pg Low 26.0-34.0 [facility] Comment on above: Performed By: #### L [id number] #### Harvest Manager: JAVID LUTHER ([phone]) [facility] ([facility]) [address] MCV (RBC) [Entitic vol] 72.1 fL Low 80.0-98.0 [facility] Comment on above: Performed By: #### L [id number] #### Harvest Manager: JAVID LUTHER ([phone]) [facility] ([facility]) [address] Platelet mean volume (Bld) [Entitic vol] 9.1 fL Normal 7.4-12.4 [facility] Comment on above: Performed By: #### L [id number] #### Harvest Manager: JAVID LUTHER ([phone]) [facility] ([facility]) [address] Platelets (Bld) [#/Vol] 59 10*3/uL Low 140-440 [facility] Comment on above: Result Comment: I-Th rombocytopenia Performed By: #### L [id number] #### Harvest Manager: JAVID LUTHER ([phone]) [facility]AD[facility] ([facility]) [address] RBC (Bld) [#/Vol] 3.45 10*6/uL Low 3.8-5.20 [facility] Comment on above: Performed By: #### L [id number] #### Harvest Manager: JAVID LUTHER ([phone]) [facility] ([facility]) [address] WBC (Bld) [#/Vol] 4.6 10*3/uL Normal 3.6-10.7 [facility] Comment on above: Performed By: #### L [id number] #### Harvest Manager: JAVID LUTHER ([phone]) [facility] ([facility]) [address] CBC panel Auto (Bld)Ordered By: Brooklyn Salter on 09-14-2023 Erythrocyte distribution width (RBC) [Ratio] 21.3 % High 11.5 - 14.5 % [facility] Comment on above: I-Anisocytosis Hematocrit (Bld) [Volume fraction] 24.9 % Low 35.0 - 47.0 % [facility] Hemoglobin (Bld) [Mass/Vol] 7.9 g/dL Low 11.7 - 16.0 g/dL [facility] Interpretation and review of laboratory results Abnormal [facility] MCH (RBC) [Entitic mass] 22.9 pg Low 26.0 - 34.0 pg [facility] MCHC (RBC) [Mass/Vol] 31.7 % Low 32.0 - 36.0 % [facility] MCV (RBC) [Entitic vol] 72.1 fL Low 80.0 - 98.0 fL [facility] Platelet mean volume (Bld) [Entitic vol] 9.1 fL 7.4 - 12.4 fL [facility] Platelets (Bld) [#/Vol] 59 10*3/uL Low 140 - 440 10*3/uL [facility] Comment on above: I-Thrombocytopenia RBC (Bld) [#/Vol] 3.45 10*6/uL Low 3.8 - 5.20 10*6/uL [facility] WBC (Bld) [#/Vol] 4.6 10*3/uL 3.6 - 10.7 10*3/uL [facility] Guidance for paracentesis of Peritoneumon 09-14-2023 Ultrasound-guided paracentesis with drainage of 1.7 L [...] Electronically Signed Date/Time: 09/14/2023 11:36 AM EST [employer] Patient Name: CAROLINA HIGHTOWER : 1975 Exam Date/Time: 09/14/2023 09:36 Procedure: US GUIDED ABDOMINAL PARACENTESIS Ordering Provider: TAN HARIKRISHNA Reason For Exam: Abdominal distention, pain PROCEDURE: Ultrasound-guided paracentesis PROCEDURAL PERSONNEL Advanced Practice Provider: Windy Pastor PA-C Attending physician, Samir Huerta M.D., was available in the department if needed. Indication: Ascites Additional clinical history: None Complications: No immediate complications. [facility] [employer] Windy Pastor PA -C - 09/14/2023 Patient Name: CAROLINA HIGHTOWER : 1975 Exam Date/Time: 09/14/2023 09:36 Procedure: US GUIDED ABDOMINAL PARACENTESIS Ordering Provider: TAN HARIKRISHNA Reason For Exam: Abdominal distention, pain PROCEDURE: Ultrasound-guided paracentesis PROCEDURAL PERSONNEL Advanced Practice Provider: Windy Pastor PA-C Attending physician, Samir Huerta M.D., was available in the department if needed. Indication: Ascites Additional clinical history: None Complications: No immediate complications. IMPRESSION: Ultrasound-guided paracentesis with drainage of 1.7 L [...] Electronically Signed Date/Time: 09/14/2023 11:36 AM EST [facility] Radiology Study observation (narrative) [facility] Guidance for paracentesis of PeritoneumOrdered By: Windy Pastor on 09-14-2023 [facility] Work Phone: Nursing Noteon 09-14-2023 Nursing Note Patient to ultrasoun d department for paracentesis. History, medications and allergies reviewed. Samuel Pastor PA-C in to speak with patient. Informed consent obtained. 1700 mL clear yellow colored fluid removed. Patient tolerated procedure well. Bandaid applied to site. Patient discharged to [facility] US GUIDED ABDOMINAL PARACENT [facility] 09-14-2023 US GUIDED ABDOMINAL PARACENTESIS Patient Name: CAROLINA HIGHTOWER : 1975 Exam Date/Time: 09/14/2023 09:36 Procedure: US GUIDED ABDOMINAL PARACENTESIS Ordering Provider: TAN HARIKRISHNA Reason For Exam: Abdominal distention, pain PROCEDURE: Ultrasound-guided paracentesis PROCEDURAL PERSONNEL Advanced Practice Provider: Windy Pastor PA-C Attending physician, Samir Huerta M.D., was available in the department if needed. Indication: Ascites Additional clinical history: None Complications: No immediate complications. IMPRESSION: Ultrasound-guided paracentesis with drainage of 1.7 L [...] Electronically Signed Date/Time: 09/14/2023 11:36 AM EST Normal [facility] BASIC METABOLIC PANELon 12- Anion gap [Moles/Vol] 4 mmol/L Normal 3-13 [facility] Comment on above: Performed By: #### L [id number] ####Harvest Manager: HALLEY HERNANDEZ ([phone])[address] Calcium [Mass/Vol] 8.3 mg/dL Low 8.4-10.4 [facility] Comment on above: Performed By: #### L [id number] ####Harvest Manager: HALLEY HERNANDEZ ([phone])[address] [place] [address] [place] Chloride [Moles/Vol] 113 mmol/L High 98-107 [facility] Comment on above: Performed By: #### L [id number] ####Harvest Manager: HALLEY HERNANDEZ ([phone])[facility] ([facility])[address] [place] [address] CO2 [Moles/Vol] 21 mmol/L Low 22-30 [facility] Comment on above: Performed By: #### L [id number] ####Harvest Manager: HALLEY HERNANDEZ ([phone])[facility] ([facility])[address] [place] [address] Creatinine [Mass/Vol] 0.68 mg/dL Normal 0.52-1.04 [facility] Comment on above: Performed By: #### L [id number] ####Harvest Manager: HALLEY HERNANDEZ ([phone])[facility] ([facility])[address] [place] [address] GLOMERULAR FILTRATION RATE ML/MIN/1.73 SQ M.PREDICTED >90.0 Normal >60.0 [facility] Comment on above: Result Comment: Calc ulation based on the Chronic Kidney Disease Epidemiology Collaboration (CKD-EPI) equation refit without adjustment for race Performed By: #### L [id number] ####Harvest Manager: HALLEY HERNANDEZ ([phone])[facility] ([facility])[address] [place] [address] [place] Glucose [Mass/Vol] 136 mg/dL High 70-100 [facility] Comment on above: Performed By: #### L [id number] ####Harvest Manager: HALLEY HERNANDEZ ([phone])[facility] ([facility])[address] [place] [address] [place] Potassium [Moles/Vol] 3.9 mmol/L Normal 3.5-5.1 [facility] Comment on above: Performed By: #### L [id number] ####Harvest Manager: HALLEY [phone])[facility] ([facility])[address] [place] [address] [place] Sodium [Moles/Vol] 137 mmol/L Normal 135-145 [facility] Comment on above: Performed By: #### L [id number] ####Harvest Manager: HALLEY HERNANDEZ ([phone])[address] Urea nitrogen [Mass/Vol] 2 mg/dL Low 7-17 [facility] Comment on above: Performed By: #### L [id number] ####Harvest Manager: HALLEY HERNANDEZ ([phone])[facility])[address] [place] [address] Basic metabolic 1998 panelon 09-13-2023 Anion gap [Moles/Vol] 4 mmol/L 3 - 13 mmol/L [facility] Calcium [Mass/Vol] 8.3 mg/dL Low 8.4 - 10. 4 mg/dL [facility] Chloride [Moles/Vol] 113 mmol/L High 98 - 10 7 mmol/L [facility] CO2 [Moles/Vol] 21 mmol/L Low 22 - 30 mmol/L [facility] Creatinine [Mass/Vol] 0.68 mg/dL 0.52 - 1.04 mg/dL [facility] GFR/1.73 sq M.predicted MDRD (S/P/Bld) [Vol rate/Area] - PINF [facility] Comment on above: Calculation based on the Chronic Kidney Disease Epidemiology Collaboration (CKD-EPI) equation refit without adjustment for race Glucose [Mass/Vol] 136 mg/dL High 70 - 100 mg/dL [facility] Interpretation and review of laboratory results Abnormal [facility] Potassium [Moles/Vol] 3.9 mmol/L 3.5 - 5.1 mmol/L [facility] Sodium [Moles/Vol] 137 mmol/L 135 - 145 mmol/L [facility] Urea nitrogen [Mass/Vol] 2 mg/dL Low 7 - 17 mg/dL [facility] CBC (HEMOGRAM)on 09-13-2023 Erythrocyte distribution width (RBC) [Ratio] 21.1 % High 11.5-14.5 [facility] Comment on above: Result Comment: I-An isocytosis Performed By: #### L [id number] ####Harvest Manager: HALLEY HERNANDEZ ([phone])[facility] [address] ERYTHROCYTE MEAN CORPUSCULAR HEMOGLOBIN CONCENTRATION (G/DL) BY AUTOMATED 31.0 % Low 32.0-36.0 [facility] Comment on above: Performed By: #### L [id number] ####Harvest Manager: HALLEY HERNANDEZ ([phone])[facility])[address] [place] [address] Hematocrit (Bld) [Volume fraction] 26.1 % Low 35.0-47.0 [facility] Comment on above: Performed By: #### L [id number] ####Harvest Manager: HALLEY HERNANDEZ ([phone])[facility])[address] [place] [address] Hemoglobin (Bld) [Mass/Vol] 8.1 g/dL Low 11.7-16.0 [facility] Comment on above: Performed By: #### L [id number] ####Harvest Manager: HALLEY HERNANDEZ ([phone])[facility])[address] [place] [address] MCH (RBC) [Entitic mass] 22.4 pg Low 26.0-34.0 [facility] Comment on above: Performed By: #### L [id number] ####Harvest Manager: HALLEY HERNANDEZ ([phone])[facility])[address] [place] [address] MCV (RBC) [Entitic vol] 72.4 fL Low 80.0-98.0 [facility] Comment on above: Performed By: #### L [id number] ####Harvest Manager: HALLEY HERNANDEZ ([phone])[facility])[address] [place] [address] Platelet mean volume (Bld) [Entitic vol] 8.8 fL Normal 7.4-12.4 [facility] Comment on above: Performed By: #### L [id number] ####Harvest Manager: HALLEY HERNANDEZ ([phone])[facility])[address] [place] [address] [place] Platelets (Bld) [#/Vol] 56 10*3/uL Low 140-440 [facility] Comment on above: Result Comment: I-Th rombocytopenia Performed By: #### L [id number] ####Harvest Manager: HALLEY HERNANDEZ ([phone])[facility] ([facility])[address] [place] [address] RBC (Bld) [#/Vol] 3.60 10*6/uL Low 3.8-5.20 [facility] Comment on above: Performed By: #### L [id number] ####Harvest Manager: HALLEY HERNANDEZ ([phone])[facility] ([facility])[address] [place] [address] WBC (Bld) [#/Vol] 4.4 10*3/uL Normal 3.6-10.7 [facility] Comment on above: Performed By: #### L [id number] ####Harvest Manager: HALLEY HERNANDEZ ([phone])[facility] ([facility])[address] [place] [address] CBC panel Auto (Bld)Ordered By: Robin Riojas on 09-13-2023 Erythrocyte distribution width (RBC) [Ratio] 21.1 % High 11.5 - 14.5 % [facility] Comment on above: I-Anisocytosis Hematocrit (Bld) [Volume fraction] 26.1 % Low 35.0 - 47.0 % [facility] Hemoglobin (Bld) [Mass/Vol] 8.1 g/dL Low 11.7 - 16.0 g/dL [facility] Interpretation and review of laboratory results Abnormal [facility] MCH (RBC) [Entitic mass] 22.4 pg Low 26.0 - 34.0 pg [facility] MCHC (RBC) [Mass/Vol] 31.0 % Low 32.0 - 36.0 % [facility] MCV (RBC) [Entitic vol] 72.4 fL Low 80.0 - 98.0 fL [facility] Platelet mean volume (Bld) [Entitic vol] 8.8 fL 7.4 - 12.4 fL [facility] Platelets (Bld) [#/Vol] 56 10*3/uL Low 140 - 440 10*3/uL [facility] Comment on above: I-Thrombocytopenia RBC (Bld) [#/Vol] 3.60 10*6/uL Low 3.8 - 5.20 10*6/uL [facility] WBC (Bld) [#/Vol] 4.4 10*3/uL 3.6 - 10.7 10*3/uL [facility] AMMONIAon 09-12-2023 Ammonia (P) [Moles/Vol] 42 umol/L High 9-30 [facility] Comment on above: Performed By: #### L [id number] ####Harvest Manager: HALLEY HERNANDEZ ([phone])[facility] ([address] CARECOORDon 09-12-2023 [place] Care Managment Initi al Assessment Date: 09/12/2023 Patient Name: Carolina Hightower : 1975 Patient Information Source of Information: Patient Cognition/Language: WFL - Within Functional Limits 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 MI diet and Addiction Medicine consulted. Discharge plan home with Significant Other. Meg Herrmann RN Normal [facility] CBC (HEMOGRAM)on 09-12-2023 Erythrocyte distribution width (RBC) [Ratio] 21.1 % High 11.5-14.5 [facility] Comment on above: Result Comment: I-An isocytosis Performed By: #### L [id number] #### Harvest Manager: JAVID LUTHER ([phone]) [facility] ([facility] [address] ERYTHROCYTE MEAN CORPUSCULAR HEMOGLOBIN CONCENTRATION (G/DL) BY AUTOMATED 31.5 % Low 32.0-36.0 [facility] Comment on above: Performed By: #### L [id number] #### Harvest Manager: JAVID LUTHER ([phone]) [facility] ([facility]) [address] Hematocrit (Bld) [Volume fraction] 25.0 % Low 35.0-47.0 [facility] Comment on above: Performed By: #### L [id number] #### Harvest Manager: JAVID LUTHER ([phone]) [facility] ([facility]) [address] Hemoglobin (Bld) [Mass/Vol] 7.9 g/dL Low 11.7-16.0 [facility] Comment on above: Performed By: #### L [id number] #### Harvest Manager: JAVID LUTHER ([phone]) [facility] ([facility]) [address] MCH (RBC) [Entitic mass] 22.5 pg Low 26.0-34.0 [facility] Comment on above: Performed By: #### L [id number] #### Harvest Manager: JAVID LUTHER ([phone]) [facility] ([facility]) [address] MCV (RBC) [Entitic vol] 71.5 fL Low 80.0-98.0 [facility] Comment on above: Performed By: #### L [id number] #### Harvest Manager: JAVID LUTHER ([phone]) [facility]ITAL[facility]reen [facility]ADVANC[facility] ([facility]) [address] Platelet mean volume (Bld) [Entitic vol] 8.9 fL Normal 7.4-12.4 [facility] Comment on above: Performed By: #### L [id number] #### Harvest Manager: JAVID LUTHER ([phone]) [facility] HU[facility]ADV[facility] ([facility]) [address] Platelets (Bld) [#/Vol] 58 10*3/uL Low 140-440 [facility] Comment on above: Result Comment: I-Th rombocytopenia Performed By: #### L [id number] #### Harvest Manager: JAVID LUTHER ([phone]) [facility] [place] ([facility]) [address] RBC (Bld) [#/Vol] 3.50 10*6/uL Low 3.8-5.20 [facility] Comment on above: Performed By: #### L [id number] #### Harvest Manager: JAVID LUTHER ([phone]) [facility]ITALA [facility]BADVANC[facility] ([facility]) [address] WBC (Bld) [#/Vol] 5.1 10*3/uL Normal 3.6-10.7 [facility] Comment on above: Performed By: #### L [id number] #### Harvest Manager: JAVID LUTHER ([phone]) [facility]OSPITALAmbreen HUANGADVANCED [facility] ([facility]) [address] CBC panel Auto (Bld)Ordered By: Luis Alfredo Brand on 09-12-2023 Erythrocyte distribution width (RBC) [Ratio] 21.1 % High 11.5 - 14.5 % [facility] Comment on above: I-Anisocytosis Hematocrit (Bld) [Volume fraction] 25.0 % Low 35.0 - 47.0 % [facility] Hemoglobin (Bld) [Mass/Vol] 7.9 g/dL Low 11.7 - 16.0 g/dL [facility] Interpretation and review of laboratory results Abnormal [facility] MCH (RBC) [Entitic mass] 22.5 pg Low 26.0 - 34.0 pg [facility] MCHC (RBC) [Mass/Vol] 31.5 % Low 32.0 - 36.0 % [facility] MCV (RBC) [Entitic vol] 71.5 fL Low 80.0 - 98.0 fL [facility] Platelet mean volume (Bld) [Entitic vol] 8.9 fL 7.4 - 12.4 fL [facility] Platelets (Bld) [#/Vol] 58 10*3/uL Low 140 - 440 10*3/uL [facility] Comment on above: I-Thrombocytopenia RBC (Bld) [#/Vol] 3.50 10*6/uL Low 3.8 - 5.20 10*6/uL [facility] WBC (Bld) [#/Vol] 5.1 10*3/uL 3.6 - 10.7 10*3/uL [facility] COMPREHENSIVE METABOLIC PANE [place] 09-12-2023 Albumin [Mass/Vol] 2.9 g/dL Low 3.5-5.0 [facility] Comment on above: Performed By: #### L AB17, [id number] ####Harvest Manager: HALLEY HERNANDEZ ([phone])[facility] ([facility])[address] [place] [address] ALP [Catalytic activity/Vol] 112 U/L Normal 38-126 [facility] Comment on above: Performed By: #### L AB17, [id number] ####Harvest Manager: HALLEY HERNANDEZ ([phone])[facility])[address] [place] [address] ALT [Catalytic activity/Vol] 54 U/L High 0-34 [facility] Comment on above: Performed By: #### L AB17, [id number] ####Harvest Manager: HALLEY HERNANDEZ ([phone])[facility] ([facility])[address] [place] [address] Anion gap [Moles/Vol] 6 mmol/L Normal 3-13 [facility] Comment on above: Performed By: #### L AB17, [id number] ####Harvest Manager: HALLEY HERNANDEZ ([phone])[facility])[address] [place] [address] AST [Catalytic activity/Vol] 106 U/L High 15-46 [facility] Comment on above: Performed By: #### L AB17, [id number] ####Harvest Manager: HALLEY HERNANDEZ ([phone])[facility])[address] [place] [address] Bilirubin [Mass/Vol] 1.9 mg/dL High 0.2-1.3 [facility] Comment on above: Performed By: #### L AB17, [id number] ####Harvest Manager: HALLEY HERNANDEZ ([phone])[facility] ([facility])[address] [place] [address] Calcium [Mass/Vol] 8.7 mg/dL Normal 8.4-10.4 [facility] Comment on above: Performed By: #### L AB17, [id number] ####Harvest Manager: HALLEY HERNANDEZ ([phone])[facility] ([facility])[address] [place] [address] [place] Chloride [Moles/Vol] 111 mmol/L High 98-107 [facility] Comment on above: Performed By: #### L AB17, [id number] ####Harvest Manager: HALLEY HERNANDEZ ([phone])[facility])[address] [place] [address] [place] CO2 [Moles/Vol] 19 mmol/L Low 22-30 [facility] Comment on above: Performed By: #### L AB17, [id number] ####Harvest Manager: HALLEY HERNANDEZ ([phone])[facility])[address] [place] [address] Creatinine [Mass/Vol] 0.64 mg/dL Normal 0.52-1.04 [facility] Comment on above: Performed By: #### L AB17, [id number] ####Harvest Manager: HALLEY HERNANDEZ ([phone])[facility] ([facility])[address] [place] [address] GLOMERULAR FILTRATION RATE ML/MIN/1.73 SQ M.PREDICTED >90.0 Normal >60.0 [facility] Comment on above: Result Comment: Calc ulation based on the Chronic Kidney Disease Epidemiology Collaboration (CKD-EPI) equation refit without adjustment for race Performed By: #### L AB17, [id number] ####Harvest Manager: HALLEY HERNANDEZ ([phone])[facility] ([facility])[address] [place] [address] Glucose [Mass/Vol] 110 mg/dL High 70-100 [facility] Comment on above: Performed By: #### L AB17, [id number] ####Harvest Manager: HALLEY HERNANDEZ ([phone])[facility] ([facility])[address] [place] [address] [place] Potassium [Moles/Vol] 3.9 mmol/L Normal 3.5-5.1 [facility] Comment on above: Performed By: #### L AB17, [id number] ####Harvest Manager: HALLEY HERNANDEZ ([phone])[facility] ([facility])[address] [place] [address] Protein [Mass/Vol] 6.1 g/dL Low 6.3-8.2 [facility] Comment on above: Performed By: #### L AB17, [id number] ####Harvest Manager: HALLEY HERNANDEZ ([phone])[facility])[address] [place] [address] [place] Sodium [Moles/Vol] 136 mmol/L Normal 135-145 [facility] Comment on above: Performed By: #### L AB17, [id number] ####Harvest Manager: HALLEY HERNANDEZ ([phone])[facility])[address] [place] [address] Urea nitrogen [Mass/Vol] 3 mg/dL Low 7-17 [facility] Comment on above: Performed By: #### L AB17, [id number] ####Harvest Manager: HALLEY HERNANDEZ ([phone])[facility] ([facility])[address] [place] [address] Comprehensive metabolic 1998 panelon 09-12-2023 Albumin [Mass/Vol] 2.9 g/dL Low 3.5 - 5.0 g/dL [facility] ALP [Catalytic activity/Vol] 112 U/L 38 - 126 U/L [facility] ALT [Catalytic activity/Vol] 54 U/L High 0 - 34 U/L [facility] Anion gap [Moles/Vol] 6 mmol/L 3 - 13 mmol/L [facility] AST [Catalytic activity/Vol] 106 U/L High 15 - 46 U/L [facility] Bilirubin [Mass/Vol] 1.9 mg/dL High 0.2 - 1 .3 mg/dL [facility] Calcium [Mass/Vol] 8.7 mg/dL 8.4 - 10. 4 mg/dL [facility] Chloride [Moles/Vol] 111 mmol/L High 98 - 10 7 mmol/L [facility] CO2 [Moles/Vol] 19 mmol/L Low 22 - 30 mmol/L [facility] Creatinine [Mass/Vol] 0.64 mg/dL 0.52 - 1.04 mg/dL [facility] GFR/1.73 sq M.predicted MDRD (S/P/Bld) [Vol rate/Area] - PINF [facility] Comment on above: Calculation based on the Chronic Kidney Disease Epidemiology Collaboration (CKD-EPI) equation refit without adjustment for race Glucose [Mass/Vol] 110 mg/dL High 70 - 100 mg/dL [facility] Interpretation and review of laboratory results Abnormal [facility] Potassium [Moles/Vol] 3.9 mmol/L 3.5 - 5.1 mmol/L [facility] Protein [Mass/Vol] 6.1 g/dL Low 6.3 - 8.2 g/dL [facility] Sodium [Moles/Vol] 136 mmol/L 135 - 145 mmol/L [facility] Urea nitrogen [Mass/Vol] 3 mg/dL Low 7 - 17 mg/dL [facility] Laboratory - Chemistry and C hemistry - challengeon 09-12-2023 Magnesium [Mass/Vol] 1.6 mg/dL 1.6 - 2 .3 mg/dL [facility] Ammonia (P) [Moles/Vol] 42 umol/L High 9 - 30 umol/L [facility] MAGNESIUMon 09-12-2023 Magnesium [Mass/Vol] 1.6 mg/dL Normal 1.6-2.3 [facility] Comment on above: Performed By: #### L AB17, [id number] ####Harvest Manager: HALLEY HERNANDEZ ([phone])[facility] ([address] Magnesium [Mass/Vol]on 09-12 Interpretation and review of laboratory results Normal [facility] No Panel Informationon 09-12 [facility] Interpretation and review of laboratory results Abnormal [facility] Progress Noteon 09-12-2023 Progress Note -------- Attestation signed by Karen Yun MD at 09/13/2023 2:49 PM ~~~~~~~~~~~~~~~~~~~~~~~~~~~~ ~~~~~~~~~~~~~~~~~~~~~~~~~~~~ ~~~~~ ATTENDING ADDENDUM Patient Active Problem List Diagnosis [...] Division of Trauma Department of Surgery [facility] ~~~~~~~~~~~~~~~~~~~~~~~~~~~~ ~~~~~~~~~~~~~~~~~~~~~~~~~~~~ ~~~~~ This note may have been dictated using [employer] Practice Edition 2.6 and/or [employer] Voice Recognition Feature. The document was proofread; however, unrecognized voice recognition flight/transport nurse errors may be present. Department of General Surgery Daily Progress Note [...] unless otherwise mentioned OBJECTIVE: VITALS: Temp: [36.7 ?C (98.1 ?F)-36.8 ?C (98.3 ?F)] 36.8 ?C (98.3 ?F) Heart Rate: [74-78] 78 Resp: [17-18] 18 [...] Final CHLORIDE Date Value Ref Range Status (more content not included)... Normal [facility] Progress Note [facility] ADMISSION MEDICATION RECONCILIATION Date: 09/12/23 Room:[facility] Patient Name: Carolina Hightower Allergies: Aspirin, Bupropion, Codeine, and Prednisone Age: 47 y.o. Sex: female Note: New information has been obtained regarding the patient?s medications. The medication reconciliation has been updated to reflect this. Please consider making these changes/additions if appropriate: Recommendations: *FYI* - did not discuss home meds with patient d/t disorientation. Updated home med list based on last fill dates from patient's [facility]. Home medications to restart if there [...] 4:15 PM 09/12/2023 4:18 PM Kaylin Camarillo, PharmD [facility] Progress Note Nutrition Assessment Type and Reason for Visit: [...] muscle mass loss Fluid Accumulation: Mild Ascites Oracle R12 Developer Strength: Not Performed Nutrition Assessment: 47yo F [...] On: Kcal/kg Weight Used for Energy Requirements: [place] Weight for Energy Calculation (kg): 50 kg Total Energy Requirements (kcals/day): 27-32 kcal/kg = 0597-6987 kcal/day Weight Used for Protein Requirements: [place] Weight in Kg Used for Protein Requirements: [...] 05/26/22 198#) % Weight Change (Calculated): 2.8 [place] Body Weight (lbs) (Calculated): 110 lbs [place] Body Weight (Kg) (Calculated): 50 kg % [place] Body Weight (Calculated): 186.9 % BMI (kg/m2) [...] Time Behavior Discharge Planning: Too soon to determ (more content not included)... Normal [facility] AMMONIAon 09-11-2023 Ammonia (P) [Moles/Vol] 65 umol/L High 9-30 [facility] Comment on above: Performed By: #### L [id number] ####Harvest Manager: HALLEY HERNANDEZ ([phone])[facility] ([facility])[address] [place] [address] BILIRUBIN, DIRECTon 09-11-20 Bilirubin.indirect [Mass/Vol] 0.0 mg/dL Normal 0.0-0.3 [facility] Comment on above: Performed By: #### L AB52, [id number] ####Harvest Manager: HALLEY HERNANDEZ ([phone])[facility] ([facility])[address] [place] [address] Bilirubin.indirect [Mass/Vol ]on 09-11-2023 Bilirubin.conjugated [Mass/Vol] 0.0 mg/dL 0.0 - 0.3 mg/dL [facility] Interpretation and review of laboratory results Normal [facility] CARECOORDon [facility]-11-2023 [facility] to complet e Initial assessment over the phone. Patient currently unavailable/off unit. Will try again as time allows. TCC will follow. Normal [facility] CBC W Auto Differential pane l (Bld)on 09-11-2023 Basophils (Bld) [#/Vol] 0.0 10*3/uL 0.0 - 0.2 10*3/uL [facility] Basophils/100 WBC (Bld) 0.5 % 0.0 - 2.0 % [facility] Eosinophils (Bld) [#/Vol] 0.3 10*3/uL 0.0 - 0.5 10*3/uL [facility] Eosinophils/100 WBC (Bld) 4.4 % 1.0 - 6.0 % [facility] Erythrocyte distribution width (RBC) [Ratio] 21.6 % High 11.5 - 14.5 % [facility] Comment on above: I-Anisocytosis Hematocrit (Bld) [Volume fraction] 27.4 % Low 35.0 - 47.0 % [facility] Hemoglobin (Bld) [Mass/Vol] 8.6 g/dL Low 11.7 - 16.0 g/dL [facility] Interpretation and review of laboratory results Abnormal [facility] Lymphocytes (Bld) [#/Vol] 1.6 10*3/uL 1.0 - 4.3 10*3/uL [facility] Lymphocytes/100 WBC (Bld) 20.6 % 20.0 - 40.0 % [facility] MCH (RBC) [Entitic mass] 22.5 pg Low 26.0 - 34.0 pg [facility] MCHC (RBC) [Mass/Vol] 31.2 % Low 32.0 - 36.0 % [facility] MCV (RBC) [Entitic vol] 72.2 fL Low 80.0 - 98.0 fL [facility] Monocytes (Bld) [#/Vol] 0.9 10*3/uL High 0.0 - 0.8 10*3/uL [facility] Monocytes/100 WBC (Bld) 10.9 % High 2.0 - 10.0 % [facility] Neutrophils (Bld) [#/Vol] 5.0 10*3/uL 1.8 - 7.0 10*3/uL [facility] Neutrophils/100 WBC (Bld) 63.6 % 40.0 - 80.0 % [facility] Nucleated RBC/100 WBC (Bld) [Ratio] 0.0 % [facility] Platelet mean volume (Bld) [Entitic vol] 8.5 fL 7.4 - 12.4 fL [facility] Platelets (Bld) [#/Vol] 61 10*3/uL Low 140 - 440 10*3/uL [facility] Comment on above: I-Thrombocytopenia RBC (Bld) [#/Vol] 3.80 10*6/uL 3.8 - 5.20 10*6/uL [facility] WBC (Bld) [#/Vol] 7.9 10*3/uL 3.6 - 10.7 10*3/uL [facility] CBC WITH AUTO DIFFERENTIALon 09-11-2023 Basophils (Bld) [#/Vol] 0.0 10*3/uL Normal 0.0-0.2 [facility] Comment on above: Performed By: #### L [id number] ####Harvest Manager: HALLEY HERNANDEZ ([phone])[facility])[address] [place] [address] Basophils/100 WBC (Bld) 0.5 % Normal 0.0-2.0 [facility] Comment on above: Performed By: #### L [id number] ####Harvest Manager: HALLEY HERNANDEZ ([phone])[facility])[address] [place] [address] Eosinophils (Bld) [#/Vol] 0.3 10*3/uL Normal 0.0-0.5 [facility] Comment on above: Performed By: #### L [id number] ####Harvest Manager: HALLEY HERNANDEZ ([phone])[facility])[address] [place] [address] Eosinophils/100 WBC (Bld) 4.4 % Normal 1.0-6.0 [facility] Comment on above: Performed By: #### L [id number] ####Harvest Manager: HALLEY HERNANDEZ ([phone])[address] Erythrocyte distribution width (RBC) [Ratio] 21.6 % High 11.5-14.5 [facility] Comment on above: Result Comment: I-An isocytosis Performed By: #### L [id number] ####Harvest Manager: HALLEY HERNANDEZ ([phone])[facility])[address] [place] [address] ERYTHROCYTE MEAN CORPUSCULAR HEMOGLOBIN CONCENTRATION (G/DL) BY AUTOMATED 31.2 % Low 32.0-36.0 [facility] Comment on above: Performed By: #### L [id number] ####Harvest Manager: HALLEY HERNANDEZ ([phone])[facility])[address] [place] [address] Hematocrit (Bld) [Volume fraction] 27.4 % Low 35.0-47.0 [facility] Comment on above: Performed By: #### L [id number] ####Harvest Manager: HALLEY HERNANDEZ ([phone])[address] Hemoglobin (Bld) [Mass/Vol] 8.6 g/dL Low 11.7-16.0 [facility] Comment on above: Performed By: #### L [id number] ####Harvest Manager: HALLEY HERNANDEZ ([phone])[facility])[address] [place] [address] Lymphocytes (Bld) [#/Vol] 1.6 10*3/uL Normal 1.0-4.3 [facility] Comment on above: Performed By: #### L [id number] ####Harvest Manager: HALLEY HERNANDEZ ([phone])[address] Lymphocytes/100 WBC (Bld) 20.6 % Normal 20.0-40.0 [facility] Comment on above: Performed By: #### L [id number] ####Harvest Manager: HALLEY HERNANDEZ ([phone])[address] MCH (RBC) [Entitic mass] 22.5 pg Low 26.0-34.0 [facility] Comment on above: Performed By: #### L [id number] ####Harvest Manager: HALLEY HERNANDEZ ([phone])[address] MCV (RBC) [Entitic vol] 72.2 fL Low 80.0-98.0 [facility] Comment on above: Performed By: #### L [id number] ####Harvest Manager: HALLEY HERNANDEZ ([phone])[address] Monocytes (Bld) [#/Vol] 0.9 10*3/uL High 0.0-0.8 [facility] Comment on above: Performed By: #### L [id number] ####Harvest Manager: HALLEY HERNANDEZ ([phone])[facility])[address] [place] [address] Monocytes/100 WBC (Bld) 10.9 % High 2.0-10.0 [facility] Comment on above: Performed By: #### L [id number] ####Harvest Manager: HALLEY HERNANDEZ ([phone])[facility])[address] [place] [address] Neutrophils (Bld) [#/Vol] 5.0 10*3/uL Normal 1.8-7.0 [facility] Comment on above: Performed By: #### L [id number] ####Harvest Manager: HALLEY HERNANDEZ ([phone])[facility])[address] [place] [address] Neutrophils/100 WBC (Bld) 63.6 % Normal 40.0-80.0 [facility] Comment on above: Performed By: #### L [id number] ####Harvest Manager: HALLEY HERNANDEZ ([phone])[facility])[address] [place] [address] NRBC (PER 100 WBCS) BY AUTOMATED COUNT 0.0 /100 WBCs Normal 0.0-2.0 [facility] Comment on above: Performed By: #### L [id number] ####Harvest Manager: HALLEY HERNANDEZ ([phone])[facility])[address] [place] [address] Platelet mean volume (Bld) [Entitic vol] 8.5 fL Normal 7.4-12.4 [facility] Comment on above: Performed By: #### L [id number] ####Harvest Manager: HALLEY HERNANDEZ ([phone])[facility])[address] [place] [address] Platelets (Bld) [#/Vol] 61 10*3/uL Low 140-440 [facility] Comment on above: Result Comment: I-Th rombocytopenia Performed By: #### L [id number] ####Harvest Manager: HALLEY HERNANDEZ ([phone])[facility])[address] [place] [address] RBC (Bld) [#/Vol] 3.80 10*6/uL Normal 3.8-5.20 [facility] Comment on above: Performed By: #### L [id number] ####Harvest Manager: HALLEY HERNANDEZ ([phone])[facility])[address] [place] [address] WBC (Bld) [#/Vol] 7.9 10*3/uL Normal 3.6-10.7 [facility] Comment on above: Performed By: #### L [id number] ####Harvest Manager: HALLEY HERNANDEZ ([phone])[facility])[address] [place] [address] COMPREHENSIVE METABOLIC PANE [place] 09-11-2023 Albumin [Mass/Vol] 3.3 g/dL Low 3.5-5.0 [facility] Comment on above: Performed By: #### Mustapha LITTLE, LAB17 ####Harvest Manager: HALLEY HERNANDEZ ([phone])[facility])[address] [place] [address] ALP [Catalytic activity/Vol] 107 U/L Normal 38-126 [facility] Comment on above: Performed By: #### Mustapha LITTLE, LAB17 ####Harvest Manager: HALLEY HERNANDEZ ([phone])[facility])[address] [place] [address] ALT [Catalytic activity/Vol] 52 U/L High 0-34 [facility] Comment on above: Performed By: #### L SIDNEY, LAB17 ####Harvest Manager: HALLEY HERNANDEZ ([phone])[facility])[address] [place] [address] Anion gap [Moles/Vol] 9 mmol/L Normal 3-13 [facility] Comment on above: Performed By: #### L ABAnge, LAB17 ####Harvest Manager: HALLEY HERNANDEZ ([phone])[facility])[address] [place] [address] [place] AST [Catalytic activity/Vol] 98 U/L High 15-46 [facility] Comment on above: Performed By: #### Mustapha LITTLE, LAB17 ####Harvest Manager: HALLEY HERNANDEZ ([phone])[facility] ([facility])[address] [place] [address] [place] Bilirubin [Mass/Vol] 2.3 mg/dL High 0.2-1.3 [facility] Comment on above: Performed By: #### Mustapha LITTLE, LAB17 ####Harvest Manager: HALLEY HERNANDEZ ([phone])[facility] ([facility])[address] [place] [address] Calcium [Mass/Vol] 8.5 mg/dL Normal 8.4-10.4 [facility] Comment on above: Performed By: #### Mustapha LITTLE, LAB17 ####Harvest Manager: HALLEY HERNANDEZ ([phone])[facility] ([facility])[address] [place] [address] [place] Chloride [Moles/Vol] 111 mmol/L High 98-107 [facility] Comment on above: Performed By: #### Mustapha LITTLE, LAB17 ####Harvest Manager: HALLEY HERNANDEZ ([phone])[facility] ([facility])[address] [place] [address] [place] CO2 [Moles/Vol] 17 mmol/L Low 22-30 [facility] Comment on above: Performed By: #### Mustapha LITTLE, LAB17 ####Harvest Manager: HALLEY HERNANDEZ ([phone])[facility] ([facility])[address] [place] [address] [place] Creatinine [Mass/Vol] 0.73 mg/dL Normal 0.52-1.04 [facility] Comment on above: Performed By: #### L ABAnge, LAB17 ####Harvest Manager: HALLEY HERNANDEZ ([phone])[facility] ([facility])[address] [place] [address] [place] GLOMERULAR FILTRATION RATE ML/MIN/1.73 SQ M.PREDICTED >90.0 Normal >60.0 [facility] Comment on above: Result Comment: Calc ulation based on the Chronic Kidney Disease Epidemiology Collaboration (CKD-EPI) equation refit without adjustment for race Performed By: #### Mustapha LITTLE, LAB17 ####Harvest Manager: HALLEY HERNANDEZ ([phone])[facility])[address] [place] [address] Glucose [Mass/Vol] 76 mg/dL Normal 70-100 [facility] Comment on above: Performed By: #### Mustapha LITTLE, LAB17 ####Harvest Manager: HALLEY HERNANDEZ ([phone])[facility])[address] [place] [address] Potassium [Moles/Vol] 3.4 mmol/L Low 3.5-5.1 [facility] Comment on above: Performed By: #### Mustapha LITTLE, LAB17 ####Harvest Manager: HALLEY HERNANDEZ ([phone])[facility])[address] [place] [address] Protein [Mass/Vol] 6.8 g/dL Normal 6.3-8.2 [facility] Comment on above: Performed By: #### Mustapha LITTLE, LAB17 ####Harvest Manager: HALLEY HERNANDEZ ([phone])[facility])[address] [place] [address] Sodium [Moles/Vol] 137 mmol/L Normal 135-145 [facility] Comment on above: Performed By: #### Mustapha LITTLE, LAB17 ####Harvest Manager: HALLEY HERNANDEZ ([phone])[facility])[address] [place] [address] [place] Urea nitrogen [Mass/Vol] 8 mg/dL Normal 7-17 [facility] Comment on above: Performed By: #### Mustapha LITTLE, LAB17 ####Harvest Manager: HALLEY HERNANDEZ ([phone])[facility])[address] [place] [address] Comprehensive metabolic 1998 panelon 09-11-2023 Albumin [Mass/Vol] 3.3 g/dL Low 3.5 - 5.0 g/dL [facility] ALP [Catalytic activity/Vol] 107 U/L 38 - 126 U/L [facility] ALT [Catalytic activity/Vol] 52 U/L High 0 - 34 U/L [facility] Anion gap [Moles/Vol] 9 mmol/L 3 - 13 mmol/L [facility] AST [Catalytic activity/Vol] 98 U/L High 15 - 46 U/L [facility] Bilirubin [Mass/Vol] 2.3 mg/dL High 0.2 - 1 .3 mg/dL [facility] Calcium [Mass/Vol] 8.5 mg/dL 8.4 - 10. 4 mg/dL [facility] Chloride [Moles/Vol] 111 mmol/L High 98 - 10 7 mmol/L [facility] CO2 [Moles/Vol] 17 mmol/L Low 22 - 30 mmol/L [facility] Creatinine [Mass/Vol] 0.73 mg/dL 0.52 - 1.04 mg/dL [facility] GFR/1.73 sq M.predicted MDRD (S/P/Bld) [Vol rate/Area] - PINF [facility] Comment on above: Calculation based on the Chronic Kidney Disease Epidemiology Collaboration (CKD-EPI) equation refit without adjustment for race Glucose [Mass/Vol] 76 mg/dL 70 - 100 mg/dL [facility] Interpretation and review of laboratory results Abnormal [facility] Potassium [Moles/Vol] 3.4 mmol/L Low 3.5 - 5.1 mmol/L [facility] Protein [Mass/Vol] 6.8 g/dL 6.3 - 8.2 g/dL [facility] Sodium [Moles/Vol] 137 mmol/L 135 - 145 mmol/L [facility] Urea nitrogen [Mass/Vol] 8 mg/dL 7 - 17 mg/dL [facility] Laboratory - Chemistry and C hemistry - challengeon 09-11-2023 Ammonia (P) [Moles/Vol] 65 umol/L High 9 - 30 umol/L [facility] Laboratory - Drug toxicology Ordered By: Lorraine Hernandez on 09-11-2023 Amphetamines Screen method >1000 ng/mL Ql (U) Negative [facility] Barbiturates Screen method >200 ng/mL Ql (U) Negative [facility] Benzodiazepines Ql (U) Negative [facility] Methadone Screen Ql (U) Negative [facility] Opiates Screen Ql (U) Negative [facility] oxyCODONE Ql (U) Negative [facility] Phencyclidine Ql (U) Negative [facility] No Panel InformationOrdered By: Lorraine Hernandez on 09-11-2023 COCAINE METAB. SCREEN Negative [facility] The expected value f or all of the drugs listed above is Negative. The following drugs or drug groups have been screened for by Immunoassay at the following thresholds: Amphetamine class (1000 ng/mL) Barbiturates (200 ng/mL) Benzodiazepines (200 ng/mL) Cocaine (300 ng/mL) Methadone (300 ng/mL) Opiates (300 ng/mL) Oxycodone (100 ng/mL) PCP (25 ng/mL) NOTE: These results are for medical treatment only. Analysis performed using non-forensic procedures. POSITIVE results are NOT confirmed by a more specific alternative method unless requested. If confirmation is needed, request confirmation under separate order. [facility] No Panel Informationon 09-11 [facility] Interpretation and review of laboratory results Abnormal [facility] Nursing Noteon 09-11-2023 Nursing Note Pt was found wanderi ng the hospital by security, confused. Pt brought back by security and she said she was going outside to smoke. She was very upset that she could not have a smoke. Pt threatened to punch someone in the face. Pt is confused. [facility] Progress Noteon 09-11-2023 Progress Note Nutrition rescreen completed. Patient is NPO/Clear liquid >3 days with cirrhosis. Refer to Dietitian. DUTCH Bowers [facility] AMMONIAon 09-10-2023 Ammonia (P) [Moles/Vol] 78 umol/L High 9-30 [facility] Comment on above: Performed By: #### L [id number] ####Harvest Manager: HALLEY HERNANDEZ ([phone])[facility] ([facility])[address] [place] [address] CBC (HEMOGRAM)on 09-10-2023 Erythrocyte distribution width (RBC) [Ratio] 21.4 % High 11.5-14.5 [facility] Comment on above: Result Comment: I-An isocytosis Performed By: #### L [id number] #### Harvest Manager: JAVID VASQUEZRITA ([phone]) [facility] ([facility]) [address] ERYTHROCYTE MEAN CORPUSCULAR HEMOGLOBIN CONCENTRATION (G/DL) BY AUTOMATED 31.7 % Low 32.0-36.0 [facility] Comment on above: Performed By: #### L [id number] #### Harvest Manager: JAVID LUTHER ([phone]) [facility] ([facility]) [address] Hematocrit (Bld) [Volume fraction] 28.8 % Low 35.0-47.0 [facility] Comment on above: Performed By: #### L [id number] #### Harvest Manager: JAVID VASQUEZRITA ([phone]) [facility] ([facility]) [address] Hemoglobin (Bld) [Mass/Vol] 9.1 g/dL Low 11.7-16.0 [facility] Comment on above: Performed By: #### L [id number] #### Harvest Manager: JAVID LUTHER ([phone]) [facility] ([facility]) [address] MCH (RBC) [Entitic mass] 22.5 pg Low 26.0-34.0 [facility] Comment on above: Performed By: #### L [id number] #### Harvest Manager: JAVID LUTHER ([phone]) [facility] ([facility]) [address] MCV (RBC) [Entitic vol] 71.2 fL Low 80.0-98.0 [facility] Comment on above: Performed By: #### L [id number] #### Harvest Manager: JAVID VASQUEZRITA ([phone]) [facility] ([facility]) [address] Platelet mean volume (Bld) [Entitic vol] 8.9 fL Normal 7.4-12.4 [facility] Comment on above: Performed By: #### L [id number] #### Harvest Manager: JAVID LUTHER ([phone]) [facility] ([facility]) [address] Platelets (Bld) [#/Vol] 79 10*3/uL Low 140-440 [facility] Comment on above: Performed By: #### L [id number] #### Harvest Manager: JAVID LUTHER ([phone]) [facility] ([facility]) [address] RBC (Bld) [#/Vol] 4.05 10*6/uL Normal 3.8-5.20 [facility] Comment on above: Performed By: #### L [id number] #### Harvest Manager: JAVID LUTHER ([phone]) [facility] ([facility]) [address] WBC (Bld) [#/Vol] 8.2 10*3/uL Normal 3.6-10.7 [facility] Comment on above: Performed By: #### L [id number] #### Harvest Manager: JAVID LUTHER ([phone]) [facility] ([facility]) [address] [place] [address] CBC panel Auto (Bld)Ordered By: Oscar Wilkins on 09-10-2023 Erythrocyte distribution width (RBC) [Ratio] 21.4 % High 11.5 - 14.5 % [facility] Comment on above: I-Anisocytosis Hematocrit (Bld) [Volume fraction] 28.8 % Low 35.0 - 47.0 % [facility] Hemoglobin (Bld) [Mass/Vol] 9.1 g/dL Low 11.7 - 16.0 g/dL [facility] Interpretation and review of laboratory results Abnormal [facility] MCH (RBC) [Entitic mass] 22.5 pg Low 26.0 - 34.0 pg [facility] MCHC (RBC) [Mass/Vol] 31.7 % Low 32.0 - 36.0 % [facility] MCV (RBC) [Entitic vol] 71.2 fL Low 80.0 - 98.0 fL [facility] Platelet mean volume (Bld) [Entitic vol] 8.9 fL 7.4 - 12.4 fL [facility] Platelets (Bld) [#/Vol] 79 10*3/uL Low 140 - 440 10*3/uL [facility] RBC (Bld) [#/Vol] 4.05 10*6/uL 3.8 - 5.20 10*6/uL [facility] WBC (Bld) [#/Vol] 8.2 10*3/uL 3.6 - 10.7 10*3/uL [facility] COMPREHENSIVE METABOLIC PANE [place] 09-10-2023 Albumin [Mass/Vol] 2.8 g/dL Low 3.5-5.0 [facility] Comment on above: Performed By: #### Mustapha K[facility]ER, [id number], LAB17 ####Harvest Manager: HALLEY HERNANDEZ ([phone])[facility])[address] [place] [address] ALP [Catalytic activity/Vol] 146 U/L High 38-126 [facility] Comment on above: Performed By: #### Mustapha [facility], [id number], LAB17 ####Harvest Manager: HALLEY HERNANDEZ ([phone])[facility])[address] [place] [address] ALT [Catalytic activity/Vol] 54 U/L High 0-34 [facility] Comment on above: Performed By: #### Mustapha [facility]ER, [id number], LAB17 ####Harvest Manager: HALLEY HERNANDEZ ([phone])[facility])[address] [place] [address] Anion gap [Moles/Vol] 4 mmol/L Normal 3-13 [facility] Comment on above: Performed By: #### Mustapha AB103, [id number], LAB17 ####Harvest Manager: HALLEY HERNANDEZ ([phone])[facility])[address] [place] [address] AST [Catalytic activity/Vol] 103 U/L High 15-46 [facility] Comment on above: Performed By: #### Mustapha ABSophia, [id number], LAB17 ####Harvest Manager: HALLEY HERNANDEZ ([phone])[facility])[address] [place] [address] Bilirubin [Mass/Vol] 2.5 mg/dL High 0.2-1.3 [facility] Comment on above: Performed By: #### Mustapha KA[facility]ER, [id number], LAB17 ####Harvest Manager: HALLEY HERNANDEZ ([phone])[facility])[address] [place] [address] Calcium [Mass/Vol] 8.6 mg/dL Normal 8.4-10.4 [facility] Comment on above: Performed By: #### Mustapha [facility], [id number], LAB17 ####Harvest Manager: HALLEY HERNANDEZ ([phone])[facility])[address] [place] [address] Chloride [Moles/Vol] 113 mmol/L High 98-107 [facility] Comment on above: Performed By: #### Mustapha [facility], [id number], LAB17 ####Harvest Manager: HALLEY HERNANDEZ ([phone])[facility])[address] [place] [address] CO2 [Moles/Vol] 21 mmol/L Low 22-30 [facility] Comment on above: Performed By: #### Mustapha [facility], [id number], LAB17 ####Harvest Manager: HALLEY HERNANDEZ ([phone])[facility])[address] [place] [address] Creatinine [Mass/Vol] 0.81 mg/dL Normal 0.52-1.04 [facility] Comment on above: Performed By: #### Mustapha ABSophia, [id number], LAB17 ####Harvest Manager: HALLEY HERNANDEZ ([phone])[facility])[address] [place] [address] GLOMERULAR FILTRATION RATE ML/MIN/1.73 SQ M.PREDICTED 89.1 mL/min/1.73m*2 Normal >60.0 [facility] Comment on above: Result Comment: Calc ulation based on the Chronic Kidney Disease Epidemiology Collaboration (CKD-EPI) equation refit without adjustment for race Performed By: #### Mustapha [facility], [id number], LAB17 ####Harvest Manager: HALLEY HERNANDEZ ([phone])[facility])[address] [place] [address] Glucose [Mass/Vol] 90 mg/dL Normal 70-100 [facility] Comment on above: Performed By: #### Mustapha [facility], [id number], LAB17 ####Harvest Manager: HALLEY HERNANDEZ ([phone])[facility])[address] [place] [address] Potassium [Moles/Vol] 4.0 mmol/L Normal 3.5-5.1 [facility] Comment on above: Performed By: #### Mustapha [facility] [id number], LAB17 ####Harvest Manager: HALLEY HERNANDEZ ([phone])[facility])[address] [place] [address] Protein [Mass/Vol] 6.4 g/dL Normal 6.3-8.2 [facility] Comment on above: Performed By: #### Mustapha [facility]ER [id number], LAB17 ####Harvest Manager: HALLEY HERNANDEZ ([phone])[facility])[address] [place] [address] Sodium [Moles/Vol] 138 mmol/L Normal 135-145 [facility] Comment on above: Performed By: #### Mustapha [facility], [id number], LAB17 ####Harvest Manager: HALLEY HERNANDEZ ([phone])[facility])[address] [place] [address] [place] Urea nitrogen [Mass/Vol] 7 mg/dL Normal 7-17 [facility] Comment on above: Performed By: #### Mustapha [facility], [id number], LAB17 ####Harvest Manager: HALLEY HERNANDEZ ([phone])[facility])[address] [place] [address] Comprehensive metabolic 1998 panelon 09-10-2023 Albumin [Mass/Vol] 2.8 g/dL Low 3.5 - 5.0 g/dL [facility] ALP [Catalytic activity/Vol] 146 U/L High 38 - 126 U/L [facility] ALT [Catalytic activity/Vol] 54 U/L High 0 - 34 U/L [facility] Anion gap [Moles/Vol] 4 mmol/L 3 - 13 mmol/L [facility] AST [Catalytic activity/Vol] 103 U/L High 15 - 46 U/L [facility] Bilirubin [Mass/Vol] 2.5 mg/dL High 0.2 - 1 .3 mg/dL [facility] Calcium [Mass/Vol] 8.6 mg/dL 8.4 - 10. 4 mg/dL [facility] Chloride [Moles/Vol] 113 mmol/L High 98 - 10 7 mmol/L [facility] CO2 [Moles/Vol] 21 mmol/L Low 22 - 30 mmol/L [facility] Creatinine [Mass/Vol] 0.81 mg/dL 0.52 - 1.04 mg/dL [facility] GFR/1.73 sq M.predicted MDRD (S/P/Bld) [Vol rate/Area] 89.1 mL/min/{1.73_m2} - PINF [facility] Comment on above: Calculation based on the Chronic Kidney Disease Epidemiology Collaboration (CKD-EPI) equation refit without adjustment for race Glucose [Mass/Vol] 90 mg/dL 70 - 100 mg/dL [facility] Interpretation and review of laboratory results Abnormal [facility] Potassium [Moles/Vol] 4.0 mmol/L 3.5 - 5.1 mmol/L [facility] Protein [Mass/Vol] 6.4 g/dL 6.3 - 8.2 g/dL [facility] Sodium [Moles/Vol] 138 mmol/L 135 - 145 mmol/L [facility] Urea nitrogen [Mass/Vol] 7 mg/dL 7 - 17 mg/dL [facility] ED Nursing Noteon 09-10-2023 ED Nursing Note Report given to 7W a t this time. Transport en route. Laura Antony RN 09/10/23 7380 Normal [facility] ED Nursing Note They are here now to transport the patient to [facility] 09/10/23 3202 Normal [facility] ED Nursing Note [facility] ET A 0430 RN will call report in a few :) Afua Haas 09/10/23 0432 Normal [facility] Guidance for paracentesis of Peritoneumon 09-10-2023 Trace ascites, not a menable to ultrasound-guided paracentesis. Paracentesis not performed. Report Dictated on Electronically Signed By: Ananda Edwards MD Electronically Signed Date/Time: 09/10/2023 8:54 AM EST [facility] Patient Name: CAROLINA HIGHTOWER : 1975 Exam [...] of fluid amenable to ultrasound guided paracentesis. [facility] Ananda Edwards MD - Patient Name: CAROLINA HIGHTOWER : 1975 Exam Date/Time: 09/10/2023 08:29 Procedure: US GUIDED ABDOMINAL PARACENTESIS Ordering Provider: SAALS THOMAS Reason For Exam: Hx cirrhosis w/ recurrent ascites ULTRASOUND ABDOMEN-LIMITED: CLINICAL INDICATION: Limited ultrasound prior to ultrasound-guided paracentesis TECHNIQUE: Limited ultrasound of the abdominal quadrants was performed prior to ultrasound-guided paracentesis. COMPARISON: None FINDINGS: Ultrasound images of the abdomen show trace ascites. No significant pocket of fluid amenable to ultrasound guided paracentesis. IMPRESSION: Trace ascites, not amenable to ultrasound-guided paracentesis. Paracentesis not performed. Report Dictated on Electronically Signed By: Ananda Edwrads MD Electronically Signed Date/Time: 09/10/2023 8:54 AM EST [facility] Radiology Study observation (narrative) [facility] Guidance for paracentesis of PeritoneumOrdered By: Ananda Edwards on 09-10-2023 [facility] Work Phone: IRON AND TIBCon 09-10-2023 IRON BINDING CAPACITY 376 ug/dL Normal 261-497 [facility] Comment on above: Performed By: #### L [id number], [id number], LAB17 ####Harvest Manager: HALLEY HERNANDEZ ([phone])[facility])[address] [place] [address] IRON SATURATION 13 % Low 15-50 [facility] Comment on above: Performed By: #### L AB103, [id number], LAB17 ####Harvest Manager: HALLEY HERNANDEZ ([phone])[facility])[address] [place] [address] IRON, TOTAL 48 ug/dL Normal 37-170 [facility] Comment on above: Performed By: #### L AB103, [id number], LAB17 ####Harvest Manager: HALLEY HERNANDEZ ([phone])[facility] ([facility])[address] [place] [address] Iron and Iron binding capaci ty panelon 09-10-2023 Interpretation and review of laboratory results Abnormal [facility] Iron [Mass/Vol] 48 ug/dL 37 - 170 ug/dL [facility] Iron binding capacity [Mass/Vol] 376 ug/dL 261 - 497 ug/dL [facility] Iron saturation [Mass fraction] 13 % Low 15 - 50 % [facility] Laboratory - Chemistry and C hemistry - challengeon 09-10-2023 Magnesium [Mass/Vol] 1.7 mg/dL 1.6 - 2 .3 mg/dL [facility] Ammonia (P) [Moles/Vol] 78 umol/L High 9 - 30 umol/L [facility] Troponin I.cardiac [Mass/Vol] ng/mL NINF - 0.034 ng/mL [facility] Laboratory - Coagulationon 1 11-11-2022 aPTT Coag (PPP) [Time] 40.2 s High 20.0 - 30.5 s [facility] INR Coag (PPP) [Relative time] 1.7 {INR} High 0.9 - 1.1 [facility] Comment on above: Recommended Anticoag ulant Therapy: SEE BELOW ----- INR of 2.0 - 3.0 : - Prophylaxis of Venous Thrombosis (high-risk surgery) - Treatment of Venous Thrombosis - Treatment of Pulmonary Embolism (Includes tissue heart valves, Acute Myocardial Infarction to prevent systemic embolism, Valvular Heart Disease, and Atrial Fibrillation) ----- INR of 2.5 - 3.5 : - Mechanical Prosthetic Valves (high risk) - If oral anticoagulant therapy is used to prevent Myocardial Infarction PT Coag (Bld) [Time] 17.0 s High 9.0 - 1 2.0 s [facility] MAGNESIUMon 09-10-2023 Magnesium [Mass/Vol] 1.7 mg/dL Normal 1.6-2.3 [facility] Comment on above: Performed By: #### L AB103, [id number], LAB17 ####Harvest Manager: HALLEY HERNANDEZ ([phone])[facility] [employer] [facility])[address] [place] [address] Magnesium [Mass/Vol]on 09-10 Interpretation and review of laboratory results Normal [facility] No Panel Informationon 09-10 Interpretation and review of laboratory results Abnormal [facility] Interpretation and review of laboratory results Abnormal [facility] PROTIME AND APTTon aPTT Coag (Bld) [Time] 40.2 s High 20.0-30.5 [facility] Comment on above: Performed By: #### L [id number] ####Harvest Manager: HALLEY HERNANDEZ ([phone])[facility] ([facility])[address] [place] [address] INR Coag (PPP) [Relative time] 1.7 {INR} High 0.9-1.1 [facility] Comment on above: Result Comment: Giorgio mmended Anticoagulant Therapy: SEE BELOW ----- INR of 2.0 - 3.0 : - Prophylaxis of Venous Thrombosis (high-risk surgery) - Treatment of Venous Thrombosis - Treatment of Pulmonary Embolism (Includes tissue heart valves, Acute Myocardial Infarction to prevent systemic embolism, Valvular Heart Disease, and Atrial Fibrillation) ----- INR of 2.5 - 3.5 : - Mechanical Prosthetic Valves (high risk) - If oral anticoagulant therapy is used to prevent Myocardial Infarction Performed By: #### L [id number] ####Harvest Manager: HALLEY HERNANDEZ ([phone])[facility] ([facility])[address] [place] [address] PT Coag (PPP) [Time] 17.0 s High 9.0-12.0 [facility] Comment on above: Performed By: #### L [id number] ####Harvest Manager: HALLEY HERNANDEZ ([phone])[facility] ([facility])[address] [place] [address] Progress Noteon 09-10-2023 Progress Note Patient seen, chart reviewed, please review H&P [...] noted We will continue to follow closely. [facility] TROPONIN Ion 09-10-2023 Troponin I.cardiac [Mass/Vol] ng/mL Normal <0.034 [facility] Comment on above: Result Comment: KIKE Cohen COMMENTS: Patients with high levels of Biotin oral intake (ie >5 mg/day) may have falsely decreased Troponin levels. Performed By: #### L [id number] #### Harvest Manager: JAVID LUTHER ([phone]) [facility] ([facility]) [address] [place] [address] Troponin I.cardiac [Mass/Vol] ng/mL Normal <0.034 [facility] Comment on above: Result Comment: KIKE Cohen COMMENTS: Patients with high levels of Biotin oral intake (ie >5 mg/day) may have falsely decreased Troponin levels. Performed By: #### L [id number] ####Harvest Manager: JAVID LUTHER ([phone])[facility] ([facility])[address] [place] [address] Troponin I.cardiac [Mass/Vol ]on 09-10-2023 Interpretation and review of laboratory results Normal [facility] Patients with high l evels of Biotin oral intake (ie >5 mg/day) may have falsely decreased Troponin levels. [facility] US GUIDED ABDOMINAL PARACENT ESISon 09-10-2023 US GUIDED ABDOMINAL PARACENTESIS Patient Name: CAROLINA HIGHTOWER : 1975 [facility]#: [id number] Exam Date/Time: 09/10/2023 08:29 Procedure: US GUIDED [...] of fluid amenable to ultrasound guided paracentesis. IMPRESSION: Trace ascites, not amenable to ultrasound-guided paracentesis. Paracentesis not performed. Report Dictated on Electronically Signed By: Ananda Edwards MD Electronically Signed Date/Time: 09/10/2023 8:54 AM EST [facility] AMMONIAon 09-09-2023 Ammonia (P) [Moles/Vol] 106 umol/L High - [facility] Comment on above: Performed By: #### L AB47 ####Harvest Manager: JAVID SALINAS ([phone])[facility] ([facility])[address] [place] [address] BASIC METABOLIC PANELon 08-26 Anion gap [Moles/Vol] 8 mmol/L Normal 3-13 [facility] Comment on above: Performed By: #### L AB15, [id number], LAB20, LAB99 ####Harvest Manager: JAVID LUTHER ([phone])[facility] ([facility])[address] [place] [address] Calcium [Mass/Vol] 8.7 mg/dL Normal 8.4-10.4 [facility] Comment on above: Performed By: #### L AB15, [id number], LAB20, LAB99 ####Harvest Manager: JAVID LUTHER ([phone])[facility] ([facility])[address] Chloride [Moles/Vol] 109 mmol/L High 98-107 [facility] Comment on above: Performed By: #### L AB15, [id number], LAB20, LAB99 ####Harvest Manager: JAVID LUTHER ([phone])[facility] ([facility])[address] CO2 [Moles/Vol] 19 mmol/L Low 22-30 [facility] Comment on above: Performed By: #### L AB15, [id number], LAB20, LAB99 ####Harvest Manager: JAVID LUTHER ([phone])[facility] ([facility])[address] [place] [address] Creatinine [Mass/Vol] 0.73 mg/dL Normal 0.52-1.04 [facility] Comment on above: Performed By: #### L AB15, [id number], LAB20, LAB99 ####Harvest Manager: JAVID LUTHRE ([phone])[facility] ([facility])[address] [place] [address] GLOMERULAR FILTRATION RATE ML/MIN/1.73 SQ M.PREDICTED >90.0 Normal >60.0 [facility] Comment on above: Result Comment: Calc ulation based on the Chronic Kidney Disease Epidemiology Collaboration (CKD-EPI) equation refit without adjustment for race ORDER COMMENTS: CHEMISTRY SPECIMEN SLIGHTLY HEMOLYZED; INTERPRET WITH CAUTION! Performed By: #### L AB15, [id number], LAB20, LAB99 ####Harvest Manager: JAVID LUTHER ([phone])[facility] ([facility])[address] [place] [address] [place] Glucose [Mass/Vol] 139 mg/dL High 70-100 [facility] Comment on above: Performed By: #### L AB15, [id number], LAB20, LAB99 ####Harvest Manager: JAVID LUTHER ([phone])[facility] ([facility])[address] Potassium [Moles/Vol] 4.3 mmol/L Normal 3.5-5.1 [facility] Comment on above: Performed By: #### L AB15, [id number], LAB20, LAB99 ####Harvest Manager: JAVID LUTHER ([phone])[facility] ([facility])[address] Sodium [Moles/Vol] 136 mmol/L Normal 135-145 [facility] Comment on above: Performed By: #### L AB15, [id number], LAB20, LAB99 ####Harvest Manager: JAVID LUTHER ([phone])[facility] ([facility])[address] [place] [address] Urea nitrogen [Mass/Vol] 7 mg/dL Normal 7-17 [facility] Comment on above: Performed By: #### L AB15, [id number], LAB20, LAB99 ####Harvest Manager: JAVID LUTHER ([phone])[facility] ([facility])[address] [place] [address] Basic metabolic 1998 panelon 09-09-2023 Anion gap [Moles/Vol] 8 mmol/L 3 - 13 mmol/L [facility] Calcium [Mass/Vol] 8.7 mg/dL 8.4 - 10. 4 mg/dL [facility] Chloride [Moles/Vol] 109 mmol/L High 98 - 10 7 mmol/L [facility] CO2 [Moles/Vol] 19 mmol/L Low 22 - 30 mmol/L [facility] Creatinine [Mass/Vol] 0.73 mg/dL 0.52 - 1.04 mg/dL [facility] GFR/1.73 sq M.predicted MDRD (S/P/Bld) [Vol rate/Area] - PINF [facility] Comment on above: Calculation based on the Chronic Kidney Disease Epidemiology Collaboration (CKD-EPI) equation refit without adjustment for race Glucose [Mass/Vol] 139 mg/dL High 70 - 100 mg/dL [facility] Potassium [Moles/Vol] 4.3 mmol/L 3.5 - 5.1 mmol/L [facility] Sodium [Moles/Vol] 136 mmol/L 135 - 145 mmol/L [facility] Urea nitrogen [Mass/Vol] 7 mg/dL 7 - 17 mg/dL [facility] CBC W Auto Differential pane l (Bld)Ordered By: Saida York on 09-09-2023 Erythrocyte distribution width (RBC) [Ratio] 21.6 % High 11.5 - 14.5 % [facility] Hematocrit (Bld) [Volume fraction] 32.4 % Low 35.0 - 47.0 % [facility] Hemoglobin (Bld) [Mass/Vol] 10.4 g/dL Low 11.7 - 16.0 g/dL [facility] Interpretation and review of laboratory results Abnormal [facility] MCH (RBC) [Entitic mass] 22.8 pg Low 26.0 - 34.0 pg [facility] MCHC (RBC) [Mass/Vol] 32.0 % 32.0 - 36.0 % [facility] MCV (RBC) [Entitic vol] 71.1 fL Low 80.0 - 98.0 fL [facility] Nucleated RBC/100 WBC (Bld) [Ratio] 0.2 % [facility] Platelet mean volume (Bld) [Entitic vol] 9.2 fL 7.4 - 12.4 fL [facility] Platelets (Bld) [#/Vol] 95 10*3/uL Low 140 - 440 10*3/uL [facility] RBC (Bld) [#/Vol] 4.56 10*6/uL 3.8 - 5.20 10*6/uL [facility] WBC (Bld) [#/Vol] 9.4 10*3/uL 3.6 - 10.7 10*3/uL [facility] CBC WITH AUTO DIFFERENTIALon 09-09-2023 Erythrocyte distribution width (RBC) [Ratio] 21.6 % High 11.5-14.5 [facility] Comment on above: Performed By: #### L [id number], [id number] ####Harvest Manager: JAVID LUTHER ([phone])[facility] ([facility])[address] [place] [address] ERYTHROCYTE MEAN CORPUSCULAR HEMOGLOBIN CONCENTRATION (G/DL) BY AUTOMATED 32.0 % Normal 32.0-36.0 [facility] Comment on above: Performed By: #### L [id number], [id number] ####Harvest Manager: JAVID LUTHER ([phone])[facility] (SB[facility])[address] Hematocrit (Bld) [Volume fraction] 32.4 % Low 35.0-47.0 [facility] Comment on above: Performed By: #### L [id number], [id number] ####Harvest Manager: JAVID LUTHER ([phone])[facility] [place] (SBHL[facility])[address] Hemoglobin (Bld) [Mass/Vol] 10.4 g/dL Low 11.7-16.0 [facility] Comment on above: Performed By: #### L [id number], [id number] ####Harvest Manager: JAVID LUTHER ([phone])[facility] ([facility])[address] MCH (RBC) [Entitic mass] 22.8 pg Low 26.0-34.0 [facility] Comment on above: Performed By: #### L [id number], [id number] ####Harvest Manager: JAVID LUTHER ([phone])[facility] (SBHLAB)[address] MCV (RBC) [Entitic vol] 71.1 fL Low 80.0-98.0 [facility] Comment on above: Performed By: #### L [id number], [id number] ####Harvest Manager: JAVID LUTHER ([phone])[facility] (SBHLAB)[address] NRBC (PER 100 WBCS) BY AUTOMATED COUNT 0.2 /100 WBCs Normal 0.0-2.0 [facility] Comment on above: Performed By: #### L [id number], [id number] ####Harvest Manager: JAVID LUTHER ([phone])[facility]ITAL[facility] (SBHLAB)[address] Platelet mean volume (Bld) [Entitic vol] 9.2 fL Normal 7.4-12.4 [facility] Comment on above: Performed By: #### L [id number], [id number] ####Harvest Manager: JAVID LUTHER ([phone])[facility]OSPITALAmbreen [facility]ADVANC[facility] (SBHLAB)[address] Platelets (Bld) [#/Vol] 95 10*3/uL Low 140-440 [facility] Comment on above: Performed By: #### L [id number], [id number] ####Harvest Manager: JAVID LUTHER ([phone])[facility]ITALAmbreen [facility] (SBHLAB)[address] [place] [address] RBC (Bld) [#/Vol] 4.56 10*6/uL Normal 3.8-5.20 [facility] Comment on above: Performed By: #### L [id number], [id number] ####Harvest Manager: JAVID LUTHER ([phone])[facility] (SBHLAB)[address] [place] [address] WBC (Bld) [#/Vol] 9.4 10*3/uL Normal 3.6-10.7 [facility] Comment on above: Performed By: #### L [id number], [id number] ####Harvest Manager: JAVID LUTHER ([phone])[facility] (SBHL[facility])[address] COMPLETE URINALYSISon 2022 BACTERIA (#/HPF) IN URINE Moderate Abnormal Negative [facility] Comment on above: Performed By: #### L [id number] #### Harvest Manager: JAVID LUTHER ([phone]) [facility] (SB[facility]) [address] BILIRUBIN, TOTAL PRESENCE IN URINE Negative Normal Negative [facility] Comment on above: Performed By: #### L [id number] #### Harvest Manager: JAVID LUTHER ([phone]) [facility] ([facility]) [address] Clarity (U) Clear Normal Clear [facility] Comment on above: Performed By: #### L [id number] #### Harvest Manager: JAVID LUTHER ([phone]) [facility] ([facility] [address] Color (U) Yellow Normal Lt. Yellow [facility] Comment on above: Performed By: #### L [id number] #### Harvest Manager: JAVID LUTHER ([phone]) [facility] ([facility]) [address] GLUCOSE (MG/DL) IN URINE Normal Normal Normal (<70) [facility] Comment on above: Performed By: #### L [id number] #### Harvest Manager: JAVID LUTHER ([phone]) [facility] ([facility]) [address] HEMOGLOBIN PRESENCE IN URINE 0.2 mg/dL Abnormal Negative [facility] Comment on above: Performed By: #### L [id number] #### Harvest Manager: JAVID LUTHER ([phone]) [facility] ([facility]) [address] Ketones Ql (U) Negative Normal Negative [facility] Comment on above: Performed By: #### L [id number] #### Harvest Manager: JAVID LUTHER ([phone]) [facility] ([facility]) [address] LEUKOCYTE ESTERASE PRESENCE IN URINE BY TEST STRIP Negative Normal Negative [facility] Comment on above: Performed By: #### L [id number] #### Harvest Manager: JAVID LUTHER ([phone]) [facility] ([facility]) [address] [place] [address] [place] MUCUS (#/LPF) IN URINE SEDIMENT Few Normal Negative [facility] Comment on above: Performed By: #### L [id number] #### Harvest Manager: JAVID LUTHER ([phone]) [facility] ([facility]) [address] [place] [address] NITRITE PRESENCE IN URINE Negative Normal Negative [facility] Comment on above: Performed By: #### L [id number] #### Harvest Manager: JAVID LUTHER ([phone]) [facility] ([facility]) [address] [place] [address] NON-SQUAMOUS EPITHELIAL (#/HPF) IN URINE 0-2 Abnormal Negative [facility] Comment on above: Performed By: #### L [id number] #### Harvest Manager: JAVID LUTHER ([phone]) [facility] ([facility]) [address] [place] [address] pH (U) 6.5 [pH] Normal 5.0-8.0 [facility] Comment on above: Performed By: #### L [id number] #### Harvest Manager: JAVID LUTHER ([phone]) [facility] ([facility]) [address] [place] [address] Protein (U) [Mass/Vol] Negative Normal Negative [facility] Comment on above: Performed By: #### L [id number] #### Harvest Manager: JAVID LUTHER ([phone]) [facility] ([facility]) [address] [place] [address] [place] RBC (#/HPF) IN URINE SEDIMENT 3-5 Abnormal 0-2 [facility] Comment on above: Performed By: #### L [id number] #### Harvest Manager: JAVID LUTHER ([phone]) [facility] ([facility]) [address] [place] [address] Specific gravity (U) [Rel density] 1.010 Normal 1.005-1.03 0 [facility] Comment on above: Performed By: #### L [id number] #### Harvest Manager: JAVID LUTHER ([phone]) [facility] ([facility]) [address] SQUAMOUS EPITHELIAL CELLS (#/HPF) IN URINE SEDIMENT 6-10 Abnormal 3-5 [facility] Comment on above: Performed By: #### L [id number] #### Harvest Manager: JAVID LUTHER ([phone]) [facility] ([facility]) [address] UROBILINOGEN (MG/DL) IN URINE Normal Normal Normal (0-1) [facility] Comment on above: Performed By: #### L [id number] #### Harvest Manager: JAVID ASHKAN ([phone]) [facility] (HLAB) [address] WBC (LEUKOCYTE) (#/HPF) IN URINE SEDIMENT 0-2 Normal 0-5 [facility] Comment on above: Performed By: #### L [id number] #### Harvest Manager: JAVID ASHKAN ([phone]) [facility] ([facility]) [address] COVID-19, Flu A/B, and RSV C omboon 09-09-2023 Interpretation and review of laboratory results Normal [facility] CT ABDOMEN PELVIS W CONTRAST on 09-09-2023 CT ABDOMEN PELVIS W CONTRAST Patient Name: CAROLINA HIGHTOWER : 1975 Exam [...] Unremarkable osseous structures. No suspicious osseous lesion. IMPRESSION: 1. Findings concerning for small bowel obstruction [...] Electronically Signed Date/Time: 09/09/2023 8:28 PM EST Abdominal pain, hx of cirrhosis Normal [facility] CT Abdomen and Pelvis W cont rast Tonya 09-09-2023 1. Findings concerni ng for small bowel obstruction including loops of [...] Electronically Signed Date/Time: 09/09/2023 8:28 PM EST [facility] Patient Name: CAROLINA HIGHTOWER : 1975 Exam [...] Unremarkable osseous structures. No suspicious osseous lesion. [facility] Scot Shah MD - 09/09/2023 Patient Name: CAROLINA HIGHTOWER : 1975 [...] Unremarkable osseous structures. No suspicious osseous lesion. IMPRESSION: 1. Findings concerning for small bowel obstruction [...] Electronically Signed Date/Time: 09/09/2023 8:28 PM EST [facility] Radiology Study observation (narrative) [facility] CT Abdomen and Pelvis W cont rast IVOrdered By: Scto Shah on 09-09-2023 Kiddy Work Phone: DRUGS OF ABUSEon 09-09-2023 AMPHETAMINE SCREEN Negative Normal [facility] Comment on above: Performed By: #### L [id number] ####Harvest Manager: JAVID LUTHER ([phone])[facility] (SB[facility])[address] BARBITURATES SCREEN Negative Normal [facility] Comment on above: Performed By: #### L [id number] ####Harvest Manager: JAVID VASQUEZRITA ([phone])[facility] (SB[facility])[address] BENZODIAZEPINE SCREEN Negative Normal [facility] Comment on above: Performed By: #### L [id number] ####Harvest Manager: JAVID VASQUEZRITA ([phone])[facility] (SB[facility])[address] COCAINE METAB. SCREEN Negative Normal [facility] Comment on above: Performed By: #### L [id number] ####Harvest Manager: JAVID VASQUEZRITA ([phone])[facility] ([facility])[address] METHADONE SCREEN Negative Normal [facility] Comment on above: Performed By: #### L [id number] ####Harvest Manager: JAVID LUTHER ([phone])[facility] ([facility])[address] OPIATES SCREEN Negative Normal [facility] Comment on above: Performed By: #### L [id number] ####Harvest Manager: JAVID LUTHER ([phone])[facility] ([facility])[address] OXYCODONE SCREEN Negative Normal [facility] Comment on above: Performed By: #### L [id number] ####Harvest Manager: JAVID LUTHER ([id number])[facility] ([facility])[address] PHENCYCLIDINE SCREEN Negative Normal [facility] Comment on above: Result Comment: ORDE R COMMENTS: The expected value for all of the drugs listed above is Negative. The following drugs or drug groups have been screened for by Immunoassay at the following thresholds: Amphetamine class (1000 ng/mL) Barbiturates (200 ng/mL) Benzodiazepines (200 ng/mL) Cocaine (300 ng/mL) Methadone (300 ng/mL) Opiates (300 ng/mL) Oxycodone (100 ng/mL) PCP (25 ng/mL) NOTE: These results are for medical treatment only. Analysis performed using non-forensic procedures. POSITIVE results are NOT confirmed by a more specific alternative method unless requested. If confirmation is needed, request confirmation under separate order. Performed By: #### L [id number] ####Harvest Manager: JAVID LUTHER ([phone])[facility] ([facility])[address] [place] [address] ECG 12-LEADon 09-09-2023 ECG 12-LEAD IMPRESSION: Sinus rhythm Low voltage, precordial leads Borderline prolonged QT interval Electronically Signed On 09-09-2023 19:59:30 EST by Lenny Macdonald Normal [facility] ED Nursing Noteon 09-09-2023 ED Nursing Note Pt c/o abdominal arturo n that began this afternoon, states that she has hx of cirrhosis. Family states she seems off. Normal [facility] ED Provider Noteon ED Provider Note Emergency Department Encounter [facility] ED Patient: Carolina Hightower : 1975 Date of Evaluation: 09/09/2023 ED Supervising Physician: Lenny Macdonald MD I independently examined and evaluated Carolina Hightower. 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 I [...] 114/90 Pulse: 74 Resp: 18 Temp: 37.3 ?C (99.2 ?F) TempSrc: Temporal SpO2: 100% The patient presented [...] team they recommend transfer to [facility] as they do not have IRP abilities [...] [employer] Lenny Macdonald MD 09/12/23 1500 [facility] ED Provider Note EMERGENCY DEPARTMENT ENCOUNTER Pt Name: Carolina [...] 1827] Temp Heart Rate Resp BP 37.3 ?C (99.2 ?F) 74 18 (!) 114/90 SpO2 Temp Source [...] finding. Report Dictated on Electronically Signed By: Jagdeep Will MD Electronically Signed Date/Time: 09/09/2023 6:48 [...] WITH CAUTION! HEPATIC FUNCTION PANEL - Abnormal BILI (more content not included)... Normal [facility] HCG QUALITATIVE URINEon 08-26 Beta HCG ( test) Ql (U) Negative Normal Negative [facility] Comment on above: Result Comment: Plea se note: Very dilute urine specimens, as indicated by a low specific gravity, may not contain malt liquors sales representative levels of hCG. If is still suspected, a first morning urine specimen should be collected 48 hours later and tested. ORDER COMMENTS: is the most common reason for HCG in urine, although choriocarcinoma, hydatidiform mole, and certain nontrophoblastic malignancies also result in detectable urinary HCG levels. Sensitivity = 20mIU/mL. Performed By: #### L [id number] #### Harvest Manager: JAVID LUTHER ([phone]) [facility] ([facility]) [address] [place] [address] HEPATIC FUNCTION PANELon Albumin [Mass/Vol] 3.2 g/dL Low 3.5-5.0 [facility] Comment on above: Performed By: #### L AB15, [id number], LAB20, LAB99 ####Harvest Manager: JAVID LUTHER ([phone])[facility] (SBAB)[address] ALP [Catalytic activity/Vol] 149 U/L High 38-126 [facility] Comment on above: Performed By: #### L AB15, [id number], LAB20, LAB99 ####Harvest Manager: JAVID LUTHER ([phone])[facility] [place] ([facility])[address] ALT [Catalytic activity/Vol] 59 U/L High 0-34 [facility] Comment on above: Performed By: #### L AB15, [id number], LAB20, LAB99 ####Harvest Manager: JAVID LUTHER ([phone])[facility] [place] ([facility])[address] AST [Catalytic activity/Vol] 124 U/L High 15-46 [facility] Comment on above: Performed By: #### L AB15, [id number], LAB20, LAB99 ####Harvest Manager: JAVID LUTHER ([phone])[facility] [place] ([facility])[address] Bilirubin [Mass/Vol] 2.7 mg/dL High 0.2-1.3 [facility] Comment on above: Performed By: #### L AB15, [id number], LAB20, LAB99 ####Harvest Manager: JAVID LUTHER ([phone])[facility] ([facility])[address] Bilirubin.indirect [Mass/Vol] 0.0 mg/dL Normal 0.0-0.3 [facility] Comment on above: Performed By: #### L AB15, [id number], LAB20, LAB99 ####Harvest Manager: JAVID LUTHER ([phone])[facility] [place] ([facility])[address] Protein [Mass/Vol] 7.2 g/dL Normal 6.3-8.2 [facility] Comment on above: Result Comment: KIKE Cohen COMMENTS: CHEMISTRY SPECIMEN SLIGHTLY HEMOLYZED; INTERPRET WITH CAUTION! Performed By: #### L AB15, [id number], LAB20, LAB99 ####Harvest Manager: JAVID LUTHER ([phone])[facility] [place] ([facility])[address] Hepatic function 2000 panelo n 09-09-2023 Albumin [Mass/Vol] 3.2 g/dL Low 3.5 - 5.0 g/dL [facility] ALP [Catalytic activity/Vol] 149 U/L High 38 - 126 U/L [facility] ALT [Catalytic activity/Vol] 59 U/L High 0 - 34 U/L [facility] AST [Catalytic activity/Vol] 124 U/L High 15 - 46 U/L [facility] Bilirubin [Mass/Vol] 2.7 mg/dL High 0.2 - 1 .3 mg/dL [facility] Bilirubin.conjugated [Mass/Vol] 0.0 mg/dL 0.0 - 0.3 mg/dL [facility] Protein [Mass/Vol] 7.2 g/dL 6.3 - 8.2 g/dL [facility] LIPASEon 09-09-2023 Lipase [Catalytic activity/Vol] 188 U/L Normal 23-300 [facility] Comment on above: Performed By: #### L AB15, [id number], LAB20, LAB99 ####Harvest Manager: JAVID LUTHER ([phone])[facility] ([facility])[address] Laboratory - Chemistry and C hemistry - challengeon 09-09-2023 Troponin I.cardiac [Mass/Vol] ng/mL [facility].034 ng/mL [facility] Beta HCG ( test) Ql Negative Negative [facility] Comment on above: Please note: Very di lute urine specimens, as indicated by a low specific gravity, may not contain malt liquors sales representative levels of hCG. If is still suspected, a first morning urine specimen should be collected 48 hours later and tested. Beta HCG ( test) Ql (U) is the most common reason for HCG in urine, although choriocarcinoma, hydatidiform mole, and certain nontrophoblastic malignancies also result in detectable urinary HCG levels. Sensitivity = 20mIU/mL. [facility] Troponin I.cardiac [Mass/Vol] ng/mL NINF - 0.034 ng/mL [facility] Lipase [Catalytic activity/Vol] 188 U/L 23 - 300 U/L [facility] Ammonia (P) [Moles/Vol] 106 umol/L High 9 - 30 umol/L [facility] Laboratory - Microbiology an d Antimicrobial susceptibilityon 09-09-2023 FLUAV RNA PHYLLIS+probe Ql (Resp) Not detected Not Detected [facility] FLUBV RNA PHYLLIS+probe Ql (Resp) Not detected Not Detected [facility] RSV RNA PHYLLIS+probe Ql (Resp) Not detected Not Detected [facility] SARS-CoV-2 (COVID-19) RNA PHYLLIS+probe Ql (Resp) Not detected Not Detected [facility] SARS-CoV-2 (COVID-19) RNA PHYLLIS+probe Ql (Unsp spec) Methodology: real-time, RT-PCR The SARS-CoV-2, Flu A/B, and RSV Combo assay is intended for in vitro diagnostic use under the FDA Emergency Use Authorization (EUA). This test has not been FDA cleared or approved. In compliance with this authorization, please visit www.fda.gov/media/782094/[place]enton nload or www.fda.gov/media/564364/[place] nload to access the applicable information sheets. [facility] Lipase [Catalytic activity/V ol]on 09-09-2023 Interpretation and review of laboratory results Normal [facility] MANUAL DIFFERENTIALon 2022 ANISOCYTOSIS PRESENCE IN BLOOD BY LIGHT MICROSCOPY Moderate Abnormal (none) [facility] Comment on above: Performed By: #### L [id number], [id number] ####Harvest Manager: JAVID LUTHER ([phone])[facility] ([facility])[address] [place] [address] BASOPHILS (10*3/UL) IN BLOOD BY MANUAL COUNT 0.1 10*3/uL Normal 0.0-0.2 [facility] Comment on above: Performed By: #### L [id number], [id number] ####Harvest Manager: JAVID LUTHER ([phone])[facility] ([facility])[address] [place] [address] BASOPHILS TOTAL PER COUNTED LEUKOCYTES BY MANUAL COUNT 1 Normal [facility] Comment on above: Performed By: #### L [id number], [id number] ####Harvest Manager: JAVID LUTHER ([phone])[facility] [place] (SBHLAB)[address] [place] [address] [place] BASOPHILS/100 LEUKOCYTES IN BLOOD BY MANUAL COUNT 1 % Normal 0-2 [facility] Comment on above: Performed By: #### L [id number], [id number] ####Harvest Manager: JAVID LUTHER ([phone])[facility] [place] ([facility])[address] CELLS COUNTED TOTAL (#) IN BLOOD 100 Normal [facility] Comment on above: Performed By: #### L [id number], [id number] ####Harvest Manager: JAVID LUTHER ([id number])[facility] [place] ([facility])[address] DIFFERENTIAL METHOD Automated differenti al reported after manual slide review Normal [facility] Comment on above: Performed By: #### L [id number], [id number] ####Harvest Manager: JAVID LUTHER ([phone])[facility] [place] ([facility])[address] [place] [address] [place] EOSINOPHILS (10*3/UL) IN BLOOD BY MANUAL COUNT 0.4 10*3/uL Normal 0.0-0.5 [facility] Comment on above: Performed By: #### L [id number], [id number] ####Harvest Manager: JAVID LUTHER ([phone])[facility] ([facility])[address] [place] [address] [place] EOSINOPHILS TOTAL PER COUNTED LEUKOCYTES BY MANUAL COUNT 4 High 0-1 [facility] Comment on above: Performed By: #### L [id number], [id number] ####Harvest Manager: JAVID LUTHER ([phone])[facility] ([facility])[address] [place] [address] [place] EOSINOPHILS/100 LEUKOCYTES IN BLOOD BY MANUAL COUNT 4 % Normal 1-6 [facility] Comment on above: Performed By: #### L [id number], [id number] ####Harvest Manager: JAVID LUTHER ([phone])[facility] ([facility])[address] [place] [address] [place] HYPOCHROMIA (PRESENCE) IN BLOOD BY LIGHT MICROSCOPY Slight Abnormal (none) [facility] Comment on above: Performed By: #### L [id number], [id number] ####Harvest Manager: JAVID LUTHER ([phone])[facility] ([facility])[address] LEUKOCYTE MORPHOLOGY FINDING IN BLOOD Normal Normal [facility] Comment on above: Performed By: #### L [id number], [id number] ####Harvest Manager: JAVID LUTHER ([phone])[facility] [place] ([facility])[address] LEUKOCYTES (10*3/UL) NUCLEATED ERYTHROCYTE ADJUST 9.4 10*3/uL Normal 3.6-10.7 [facility] Comment on above: Performed By: #### L [id number], [id number] ####Harvest Manager: JAVID LUTHER ([phone])[facility] [place] ([facility])[address] LYMPHOCYTES (10*3/UL) IN BLOOD BY MANUAL COUNT 2.0 10*3/uL Normal 1.0-4.3 [facility] Comment on above: Performed By: #### L [id number], [id number] ####Harvest Manager: JAVID LUTHER ([phone])[facility] [place] ([facility])[address] LYMPHOCYTES TOTAL PER COUNTED LEUKOCYTES BY MANUAL COUNT 21 Normal [facility] Comment on above: Performed By: #### L [id number], [id number] ####Harvest Manager: JAVID LUTHER ([phone])[facility] [place] ([facility])[address] [place] [address] [place] LYMPHOCYTES/100 LEUKOCYTES IN BLOOD BY MANUAL COUNT 21 % Normal 20-40 [facility] Comment on above: Performed By: #### L [id number], [id number] ####Harvest Manager: JAVID LUTHER ([phone])[facility] [place] ([facility])[address] MICROCYTES (PRESENCE) IN BLOOD BY LIGHT MICROSCOPY Slight Abnormal (none) [facility] Comment on above: Performed By: #### L [id number], [id number] ####Harvest Manager: JAVID LUTHER ([id number])[facility] [place] ([facility])[address] MONOCYTES (10*3/UL) IN BLOOD BY MANUAL COUNT 0.7 10*3/uL Normal 0.0-0.8 [facility] Comment on above: Performed By: #### L [id number], [id number] ####Harvest Manager: JAVID LUTHER ([phone])[facility] [place] ([facility])[address] MONOCYTES TOTAL PER COUNTED LEUKOCYTES BY MANUAL COUNT 7 Normal [facility] Comment on above: Performed By: #### L [id number], [id number] ####Harvest Manager: JAVID LUTHER ([phone])[facility] ([facility])[address] [place] [address] [place] MONOCYTES/100 LEUKOCYTES IN BLOOD BY MANUAL COUNT 7 % Normal 2-10 [facility] Comment on above: Performed By: #### L [id number], [id number] ####Harvest Manager: JAVID LUTHER ([phone])[facility] [place] ([facility])[address] NEUTROPHILS (SEGS+BANDS) (10*3/UL) BY MANUAL COUNT 6.3 10*3/uL Normal 1.8-7.0 [facility] Comment on above: Performed By: #### L [id number], [id number] ####Harvest Manager: JAVID LUTHER ([phone])[facility] [place] (SB[facility])155 [place] [address] [place] NEUTROPHILS TOTAL PER COUNTED LEUKOCYTES BY MANUAL COUNT 67 Normal [facility] Comment on above: Performed By: #### L [id number], [id number] ####Harvest Manager: JAVID LUTHER ([phone])[facility] [place] (SB[facility])[address] OVALOCYTES PRESENCE IN BLOOD BY LIGHT MICROSCOPY Slight Abnormal (none) [facility] Comment on above: Performed By: #### L [id number], [id number] ####Harvest Manager: JAVID LUTHER ([phone])[facility] [place] ([facility])[address] PLATELET MORPHOLOGY IN BLOOD Normal Normal [facility] Comment on above: Performed By: #### L [id number], [id number] ####Harvest Manager: JAVID LUTHER ([phone])[facility] (SB[facility])[address] SEGEMENTED NEUTROPHILS/100 LEUKOCYTES BY MANUAL COUNT 67 % Normal 40-80 [facility] Comment on above: Performed By: #### L [id number], [id number] ####Harvest Manager: JAVID LUTHER ([phone])[facility] [place] (SBHLAB)[address] Manual differential performe d Ql (Bld)Ordered By: Conner Cardenas on 09-09-2023 Anisocytosis Ql (Bld) Moderate Abnormal (none) [facility] Basophils (Bld) [#/Vol] 0.1 10*3/uL 0.0 - 0.2 10*3/uL [facility] Basophils Manual 1 [facility] Basophils/100 WBC (Bld) 1 % 0 - 2 % [facility] Cells Counted Total (Bld) [#] 100 {cells} [facility] Differential Method Automated differenti al reported after manual slide review [facility] Eosinophils (Bld) [#/Vol] 0.4 10*3/uL 0.0 - 0.5 10*3/uL [facility] Eosinophils Manual 4 High 0 - 1 [facility] Eosinophils/100 WBC (Bld) 4 % 1 - 6 % [facility] Hypochromia Ql (Bld) Slight Abnormal (none) [facility] Interpretation and review of laboratory results Abnormal [facility] Leukocyte morphology finding Nom (Bld) Normal [facility] Lymphocytes (Bld) [#/Vol] 2.0 10*3/uL 1.0 - 4.3 10*3/uL [facility] Lymphocytes Manual 21 [facility] Lymphocytes/100 WBC (Bld) 21 % 20 - 40 % [facility] Microcytes Ql (Bld) Slight Abnormal (none) [facility] Monocytes (Bld) [#/Vol] 0.7 10*3/uL 0.0 - 0.8 10*3/uL [facility] Monocytes Manual 7 [facility] Monocytes/100 WBC (Bld) 7 % 2 - 10 % [facility] Neutrophils (Bld) [#/Vol] 6.3 10*3/uL 1.8 - 7.0 10*3/uL [facility] Neutrophils Manual 67 [facility] Ovalocytes LM Ql (Bld) Slight Abnormal (none) [facility] Platelet morphology finding Nom (Bld) Normal [facility] Segmented neutrophils/100 WBC (Bld) 67 % 40 - 80 % [facility] WBC corrected for nucl RBC (Bld) [#/Vol] 9.4 10*3/uL 3.6 - 10.7 10*3/uL [facility] No Panel Informationon 09-09 [facility] P [place] 55 degrees [facility] TX Interval 157 ms [facility] QRS [place] -7 degrees [facility] QRSD Interval 81 ms [facility] QT Interval 455 ms [facility] QTC Interval 501 ms [facility] T Wave [place] 28 degrees [facility] Sinus rhythm Low voltage, precordial leads Borderline prolonged QT interval Electronically Signed On 09-09-2023 19:59:30 EST by Lenny Grajeda MD - 09/09/2023 IMPRESSION: Sinus rhythm Low voltage, precordial leads Borderline prolonged QT interval Electronically Signed On 09-09-2023 19:59:30 EST by Lenny Macdonald [facility] Interpretation and review of laboratory results Abnormal [facility] CHEMISTRY SPECIMEN S LIGHTLY HEMOLYZED; INTERPRET WITH CAUTION! [facility] Interpretation and review of laboratory results Abnormal [facility] SARS-COV-2, FLU A/B, AND RSV COMBOon 09-09-2023 SARS-CoV-2 (COVID-19) RNA PHYLLIS+probe Ql (Unsp spec) SARS-COV-2 Reference Not Detected Not Detected RESPIRATORY SYNCYTIAL VIRUS Reference Not Detected Not Detected INFLUENZA A (CEPHEID) Reference Not Detected Not Detected INFLUENZA B (CEPHEID) Reference Not Detected Not Detected ORDER COMMENTS: Methodology: real-time, RT-PCR The SARS-CoV-2, Flu A/B, and RSV Combo assay is intended for in vitro diagnostic use under the FDA Emergency Use Authorization (EUA). This test has not been FDA cleared or approved. In compliance with this authorization, please visit www.fda.gov/media/166517/[place] nload or www.fda.gov/media/433443/[place] nload to access the applicable information sheets. Normal [facility] Comment on above: Performed By: #### L [id number] ####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 blood pressure 119 mm[Hg] Williams Athy PA-C Work Phone: [facility] 09-15-2023 12:01-0500 Body mass index (BMI) [Ratio] 38.38 kg/m2 Lenny Macdonald MD Work Phone: [facility] [place] 09-15-2023 12:01-0500 Body weight 95.21 kg Lenny Macdonald MD Work Phone: [employer] [place] 09-15-2023 11:39-0500 Body height 157.5 cm Lenny Macdonald MD Work Phone: [facility] 09-15-2023 06:02-0500 Body temperature 97.3 [degF] Lenny Macdonald MD Work Phone: [facility] 09-15-2023 06:02-0500 Diastolic blood pressure 53 mm[Hg] Lenny Macdonald MD Work Phone: [facility] 09-15-2023 06:02-0500 Heart rate 68 /min Lenny Macdonald MD Work Phone: [facility] 09-15-2023 06:02-0500 Respiratory rate 16 /min Lenny Macdonald MD Work Phone: [facility] 09-15-2023 06:02-0500 SaO2% (BldA) [Mass fraction] 98 % Lenny Macdonald MD Work Phone: [facility] 09-15-2023 06:02-0500 Systolic blood pressure 91 mm[Hg] Lenny Macdonald MD Work Phone: [facility] 12-02-2022 12:49-0500 Body temperature 98.29 [degF] Krislyn Aberegg PA Work Phone: [facility] 12-02-2022 12:49-0500 Body weight 94.62 kg Krislyn Aberegg PA Work Phone: [facility] 12-02-2022 12:49-0500 Diastolic blood pressure 78 mm[Hg] Krislyn Aberegg PA Work Phone: [facility] 12-02-2022 12:49-0500 Heart rate 64 /min Krislyn Aberegg PA Work Phone: [facility] 12-02-2022 12:49-0500 Respiratory rate 16 /min Krislyn Aberegg PA Work Phone: [facility] 12-02-2022 12:49-0500 SaO2% (BldA) [Mass fraction] 98 % Krislyn Aberegg PA Work Phone: [facility] 12-02-2022 12:49-0500 Systolic blood pressure 104 mm[Hg] Jamievictoriatimothy GARCIA Work Phone: [facility] 09-29-2022 17:56-0500 Body temperature 98.2 [degF] Ananda Prabhakar MD Work Phone: [facility] 09-29-2022 17:56-0500 Body weight 94.98 kg Ananda Prabhakar MD Work Phone: [facility] 09-29-2022 17:56-0500 Diastolic blood pressure 82 mm[Hg] Ananda Prabhakar MD Work Phone: [facility] 09-29-2022 17:56-0500 Heart rate 67 /min Ananda Prabhakar MD Work Phone: [facility] 09-29-2022 17:56-0500 Respiratory rate 20 /min Ananda Prabhakar MD Work Phone: [facility] 09-29-2022 17:56-0500 SaO2% (BldA) [Mass fraction] 99 % Ananda Prabhakar MD Work Phone: [facility] 09-29-2022 17:56-0500 Systolic blood pressure 122 mm[Hg] Ananda Prabhakar MD Work Phone: [facility] 05-10-2022 15:42-0400 Diastolic blood pressure 96 mm[Hg] Dacia Acosta MD Work Phone: [facility] 05-10-2022 15:42-0400 Systolic blood pressure 148 mm[Hg] Dacia Acosta MD Work Phone: [facility] 05-10-2022 15:39-0400 Body weight 89.18 kg Dacia Acosta MD Work Phone: [facility] 05-10-2022 15:39-0400 Heart rate 92 /min Dacia Acosta MD Work Phone: [facility] 05-10-2022 15:39-0400 Respiratory rate 20 /min Dacia Acosta MD Work Phone: [facility] 05-09-2022 14:43-0400 Body temperature 98.6 [degF] Blanca James PROJECT CONTROLS SPECIALIST.LIFE AGENT Work Phone: [facility] 05-09-2022 14:43-0400 Body weight 91.54 kg Blanca Dawson HIRO.LIFE AGENT Work Phone: [facility] 05-09-2022 14:43-0400 Diastolic blood pressure 74 mm[Hg] Blanca Dawson PROJECT CONTROLS SPECIALIST.LIFE AGENT Work Phone: [facility] 05-09-2022 14:43-0400 Heart rate 85 /min Blanca Dawson APRN.LIFE AGENT Work Phone: [facility] 05-09-2022 14:43-0400 Respiratory rate 21 /min Blancabryan Dawson APRN.LIFE AGENT Work Phone: [facility] 05-09-2022 14:43-0400 SaO2% (BldA) [Mass fraction] 99 % Blanca Dawson APRN.LIFE AGENT Work Phone: [facility] 05-09-2022 14:43-0400 Systolic blood pressure 126 mm[Hg] Blanca Dawson PROJECT CONTROLS SPECIALIST.LIFE AGENT Work Phone: [facility] 03-11-2022 14:26-0400 Body weight 92.08 kg Tresa Priscilla PROJECT CONTROLS SPECIALIST.LIFE AGENT Work Phone: [facility] 03-11-2022 14:26-0400 Diastolic blood pressure 64 mm[Hg] Tresa Parkhof PROJECT CONTROLS SPECIALIST.LIFE AGENT Work Phone: [facility] 03-11-2022 14:26-0400 Heart rate 62 /min Tresa Tannhof PROJECT CONTROLS SPECIALIST.LIFE AGENT Work Phone: [facility] 03-11-2022 14:26-0400 Respiratory rate 14 /min Tresasegundo Parkhof PROJECT CONTROLS SPECIALIST.LIFE AGENT Work Phone: [facility] 03-11-2022 14:26-0400 Systolic blood pressure 106 mm[Hg] Tresa Tannhof PROJECT CONTROLS SPECIALIST.LIFE AGENT Work Phone: [facility] 01-11-2022 13:23-0400 Body temperature 97.81 [degF] Becca Enmanuel PROJECT CONTROLS SPECIALIST.LIFE AGENT Work Phone: [facility] 01-11-2022 13:23-0400 Body weight 96.34 kg Becca Enmanuel PROJECT CONTROLS SPECIALIST.LIFE AGENT Work Phone: [facility] 01-11-2022 13:23-0400 Diastolic blood pressure 62 mm[Hg] Becca Enmanuel PROJECT CONTROLS SPECIALIST.LIFE AGENT Work Phone: [facility] 01-11-2022 13:23-0400 Heart rate 65 /min Becca Enmanuel PROJECT CONTROLS SPECIALIST.LIFE AGENT Work Phone: [facility] 01-11-2022 13:23-0400 Respiratory rate 21 /min Becca Enmanuel PROJECT CONTROLS SPECIALIST.LIFE AGENT Work Phone: [facility] 01-11-2022 13:23-0400 SaO2% (BldA) [Mass fraction] 99 % Becca Enmanuel PROJECT CONTROLS SPECIALIST.LIFE AGENT Work Phone: [facility] 01-11-2022 13:23-0400 Systolic blood pressure 102 mm[Hg] Becca Enmanuel PROJECT CONTROLS SPECIALIST.LIFE AGENT Work Phone: [facility] 08-04-2018 12:36-0500 Body surface area Derived from formula [facility] 08-04-2018 12:11-0500 Body surface area Derived from formula [facility] Encounters Encounter Date Encounter Type Care Provider Facility Start: 03-23-2024 End: 03-23-2024 Emergency department patient visit CARLA STEPHEN [facility] Start: 02-29-2024 ambulatory Dacia brown MD Work Phone: Internal Medicine [facility] Start: 02-07-2024 End: 02-07-2024 ambulatory MELISA MAIN Facility:[facility] Start: 02-07-2024 End: 02-07-2024 Patient encounter procedure Melisa Main MD Work Phone: [facility] Comment on above: Skin ulcer, limited to breakdown of skin (HCC) (Primary Dx); Excoriation (skin-picking) disorder; MRSA (methicillin resistant Staphylococcus aureus); Local infection of skin and subcutaneous tissue Start: 02-06-2024 ambulatory Dacia brown MD Work Phone: [facility] Comment on above: Hematuria Start: 02-02-2024 Telephone encounter Ashanti Squires PA-C Work Phone: [facility] Comment on above: Results Start: 01-31-2024 End: 01-31-2024 ambulatory DACIA [facility] Facility:[facility] Start: 01-31-2024 End: 01-31-2024 Office outpatient visit 25 minutes Ashanti Squires PA-C Work Phone: [facility] [place] Comment on above: Skin sore (Primary D x); Gross hematuria; Acute cystitis with hematuria; Anxiety with depression Start: 01-19-2024 Refill Dacia brown MD Work Phone: [facility] Comment on above: Refill Request Start: 12-13-2023 End: 12-13-2023 ambulatory DACIA [facility] Facility:[facility] Start: 12-13-2023 End: 12-13-2023 Office outpatient visit 15 minutes Mervin Matthews APRN.CNP Work Phone: [facility] Comment on above: Chronic hepatitis C without hepatic coma (HCC) (Primary Dx); Cirrhosis of liver with ascites, unspecified hepatic cirrhosis type (HCC) (HCC); Other ascites; Nausea and vomiting, unspecified vomiting type Start: 12-12-2023 Telephone encounter Dacia randhawa MD Work Phone: [facility] [place] Comment on above: Appointment; Patient Update Start: 12-07-2023 ambulatory Priscilla hoffman RN Work Phone: [employer] Start: 11-28-2023 Telephone encounter Dacia randhawa MD Work Phone: [facility] Comment on above: Results Start: 11-26-2023 End: 11-26-2023 ambulatory DACIA [place] Facility:[facility] Start: 11-26-2023 End: 11-26-2023 Patient encounter procedure Dacia Acosta MD Work Phone: [facility] Comment on above: Cirrhosis of liver w ith ascites, unspecified hepatic cirrhosis type (HCC) (HCC) (Primary Dx); Recurrent UTI (urinary tract infection); Chronic hepatitis C without hepatic coma (HCC); Nicotine use disorder, F17.2; Gastroesophageal reflux disease, unspecified whether esophagitis present; Major depressive disorder, remission status unspecified, unspecified whether recurrent Start: 11-25-2023 ambulatory Priscilla hoffman RN Work Phone: [employer] Start: 11-24-2023 Patient Outreach Shirlenejuventino russoskyler [facility] Work Phone: Pharmacy Comment on above: Transition Of Care ( TCM Pharmacy-Hospital discharge 11/23/23) Start: 11-18-2023 End: 11-23-2023 Evaluation and management of inpatient KOKO RUIZ Facility:[id number] Start: 11-17-2023 End: 11-18-2023 Emergency department patient visit DACIA ACOSTA Facility:[facility] Start: 11-11-2023 Telephone encounter Dacia randhawa MD Work Phone: [facility] [place] Comment on above: Patient Update Start: 11-07-2023 Telephone encounter Dacia randhawa MD Work Phone: [facility] Comment on above: Abdominal Pain Start: 11-03-2023 Telephone encounter Dacia randhawa MD Work Phone: [facility] Comment on above: Patient Question Start: 11-01-2023 End: 11-01-2023 ambulatory DACIA [place] Facility:[facility] Start: 11-01-2023 End: 11-01-2023 Patient encounter procedure Williams Salvador PA-C Work Phone: [facility] Comment on above: Open wound of skin ( Primary Dx) Start: 09-16-2023 Telephone encounter Emperatriz Duenas Clinical Communication Start: 09-09-2023 End: 09-15-2023 Evaluation and management of inpatient [facility] Start: 09-09-2023 End: 09-15-2023 Evaluation and management of inpatient Lenny Macdonald MD Work Phone: [facility] Respiratory Unit 7W Comment on above: Small bowel obstruct ion (HCC) (Primary Dx) Start: 03-22-2023 Refill Dacia brown MD Work Phone: [facility] Comment on above: Refill Request Start: 01-27-2023 Telephone encounter Dacia randhawa MD Work Phone: [facility] Comment on above: Medication Request Start: 01-25-2023 Documentation procedure Mammog uriel Coordinator [facility] Start: 01-25-2023 Letter encounter Mammography Coordinator [facility] Department Start: 01-25-2023 Telephone encounter Divya andino MD Work Phone: Mammography Comment on above: Mammogram Result Pete l Back Start: 01-24-2023 End: 01-24-2023 Subsequent hospital visit by physician Screen Mammo [facility] Comment on above: Encounter for screen ing mammogram for breast cancer [Z12.31] Start: 12-02-2022 End: 12-02-2022 Patient encounter procedure Joselito GARCIA Work Phone: [facility] Comment on above: Skin infection (Prim randi Dx) Start: 10-02-2022 Telephone encounter Kaylin song PROJECT CONTROLS SPECIALIST.LIFE AGENT Work Phone: [facility] Comment on above: Results Start: 09-29-2022 End: 09-29-2022 Patient encounter procedure Ananda Prabhakar MD Work Phone: [facility] Comment on above: Cellulitis of chin ( Primary Dx); Picking own skin; URI, acute Start: 09-15-2022 ambulatory Mireya Brown [facility] [place] Comment on above: Population Health [facility] (HCC Gap/Medicaid) Start: 06-22-2022 Refill Tresa Wells APRN.LIFE AGENT Work Phone: [facility] Comment on above: Refill Request Start: 05-24-2022 ambulatory Dacia brown MD Work Phone: [facility] Start: 05-24-2022 Telephone encounter Dacia randhawa MD Work Phone: [facility] Comment on above: er follow up cristian layne Transition Of Care Start: 05-15-2022 ambulatory Diya Feliciano RN NURSE O N CALL Comment on above: Abscess; Headache Start: 05-10-2022 End: 05-10-2022 Patient encounter procedure Dacia Acosta MD Work Phone: [facility] Comment on above: Dermatitis (Primary Dx) Start: 05-09-2022 End: 05-09-2022 Patient encounter procedure Blanca Dawson APRN.LIFE AGENT Work Phone: [facility] Comment on above: Wound check, abscess (Primary Dx) Start: 05-07-2022 Telephone encounter Hugo santana PA-C Work Phone: Dermatology [facility] Comment on above: Patient Question Start: 03-24-2022 ambulatory Dacia brown MD Work Phone: Internal Medicine [facility] Start: 03-11-2022 End: 03-11-2022 Patient encounter procedure Tresa Wells APRN.LIFE AGENT Work Phone: [facility] Comment on above: Bacterial skin infec tion (Primary Dx); Acne vulgaris; Chronic midline low back pain with bilateral sciatica Start: 03-11-2022 Telephone encounter Dacia randhawa MD Work Phone: [facility] Comment on above: Refill Request Start: 01-12-2022 Telephone encounter Blanca Dawson APRN.LIFE AGENT Work Phone: [facility] Comment on above: Results Start: 01-11-2022 End: 01-11-2022 Patient encounter procedure Becca Singer APRN.LIFE AGENT Work Phone: [facility] Comment on above: Viral illness (Prima ry Dx) Start: 08-04-2018 End: 08-04-2018 Patient encounter procedure [facility] Procedures Date Procedure Procedure Detail Performing Clinician Start: 01-31-2024 End: 01-31-2024 Cul bact xcpt urine blood/stool aerobic isol Ashanti Squires PA-C Work Phone: Start: 01-31-2024 Urnls dip stick/tabl et rgnt auto w/o microscopy Ashanti Squires PA-C Work Phone: Start: 09-15-2023 Basic metabolic pane l calcium [...] aerobic isol Ananda Prabhakar MD Work Phone: Ligation of fallopian tube [place] DIAZ STEPHEN DO Plan of Treatment Date Care Activity Detail Author Start: 2033 RSV Immunization age d 60 or older (1 - 1-dose 60+ series) RSV Immunization aged 60 or older (1 - 1-dose 60+ series) [facility] Start: 07-20-2033 DTaP/Tdap/Td Vaccine s (2 - Td or Tdap) DTaP/Tdap/Td Vaccines (2 - Td or Tdap) [facility] Start: 07-20-2033 Urine microalbumin profile DTaP,Tdap,Td Vaccine (2 - Td or Tdap) [facility] Start: 11-23-2026 Diabetes Screening Diabetes Screenin g [facility] Start: 09-15-2026 Diabetes Screening Diabetes Screenin g [facility] Start: 06-24-2024 DIABETES SCREEN DIABETES SCREEN [facility] Start: 06-24-2024 Diabetes Screening Diabetes Screenin g [facility] Start: 05-27-2024 Influenza vaccination Influenz a Vaccine (Season Ended) [facility] Start: 03-20-2024 End: 03-20-2024 Patient encounter procedure 03/20/2024 12:00 PM EDT Office Visit Dermatology [place] [address] [place] [id number] Melisa Main MD [address] [place], [place] [id number] Follow-up disposition: Return in about 4 weeks (around 03/06/2024) for Follow up. Dermatology [place] Comment on above: Follow-up dispositio n: Return in about 4 weeks (around 03/06/2024) for Follow up. Start: 03-14-2024 End: 03-14-2024 Patient encounter procedure 03/14/2024 4:00 PM EDT Appointment Mammogram [address] [place], [place] [id number] JEANETH SCREENING Mammogram Comment on above: JEANETH SCREENING Start: 02-21-2024 HPV TESTING HPV TESTING [facility] Start: 02-21-2024 PAP TESTING PAP TESTING [facility] Start: 02-21-2024 Screening for malign ant neoplasm of cervix [facility] Start: 02-07-2024 End: 02-07-2024 Patient encounter procedure 02/07/2024 9:00 AM EDT Office Visit Dermatology [place] [id number] [phone] Melisa Main MD [address] [place] [place] [address] Open wound of skin [T14.8XXA]/ PATIENT INFORMED THAT APPT MIGHT NEED TO BE RESCHEDULED PLEASE CALL PATIENT, NOTICE THAT SLOT WAS LOCK [facility] [place] Comment on above: Open wound of skin [ T14.8XXA]/ PATIENT INFORMED THAT APPT MIGHT NEED TO BE RESCHEDULED PLEASE CALL PATIENT, NOTICE THAT SLOT WAS LOCK Start: 01-25-2024 Mammography [facility] Start: 01-25-2024 Screening for malign ant neoplasm of breast Mammogram Screening [facility] Start: 11-26-2023 End: 02-25-2024 Urinalysis complete panel - Urine [facility] Work Phone: Comment on above: Expected: 11/26/2023 , Expires: 02/25/2024 Start: 2023 Shingrix Vaccine (1 of 2) Shingrix Vaccine (1 of 2) [facility] Start: 2023 Zoster Vaccines (1 o f 2) Zoster Vaccines (1 of 2) [facility] Start: 05-27-2023 Covid-19 Vaccine ( season) Covid-19 Vaccine ( season) [facility] Start: 05-27-2023 Influenza vaccination [facility] Start: 12-02-2022 End: 02-01-2023 Bacteria identified in Wound by Culture WOUND CULTURE AND GRAM STAIN Microbiology Routine Skin infection Expected: 12/02/2022, Expires: 02/01/2023 [facility] Work Phone: Comment on above: Expected: 12/02/2022 , Expires: 02/01/2023 Start: 05-27-2022 Influenza vaccination [facility] Start: 05-09-2022 End: 07-09-2022 Bacteria identified in Wound by Culture [facility] Work Phone: Comment on above: Expected: 05/09/2022 , Expires: 07/09/2022 Start: 01-11-2022 End: 01-25-2022 Influenza virus A and B RNA and SARS-CoV-2 (COVID-19) N gene panel - Respiratory specimen by PHYLLIS with probe detection COVID WITH FLUA+B, ROUTINE Microbiology Routine Viral illness Expected: 01/11/2022, Expires: 01/25/2022 [facility] Work Phone: Comment on above: Expected: 01/11/2022 , Expires: 01/25/2022 Start: 08-05-2019 PNEUMOCOCCAL (2 - PCV) PNEUMOCOCCAL (2 - PCV) [facility] Start: 08-05-2019 Pneumococcal vaccination [facility] Start: 2018 COLOGUARD (FIT-DNA) COLOGUARD (FIT-D NA) [facility] Start: 2018 Colonoscopy COLONOSCOPY [facility] Start: 2018 COLORECTAL CANCER SCREENING COLORECTAL CANCER SCREENING [facility] Start: [address] COLONOGRAPHY [facility] Start: 2018 FECAL OCCULT BLOOD FECAL OCCULT BLOO D [facility] Start: 2018 Lipid 1996 panel - Serum or Plasma Lipid Screening [facility] Start: 2018 Lipid panel Lipid Screening [facility] Start: 2018 LIPID SCREEN LIPID SCREEN [facility] Start: 2018 Screening for malign ant neoplasm of colon [facility] Start: 2018 SIGMOIDOSCOPY SIGMOIDOSCOPY [facility] Start: 2013 Mammography MAMMOGRAM [facility] Start: 2013 Screening for malign ant neoplasm of breast Mammogram [facility] Start: 2003 Screening for malign ant neoplasm of cervix [facility] Start: 1994 Screening for malign ant neoplasm of cervix Pap Smear [facility] Start: 1992 Hepatitis A Vaccine (1 of 2 - Risk 2-dose series) Hepatitis A Vaccine (1 of 2 - Risk 2-dose series) [facility] Start: 1992 Hepatitis A Vaccines (1 of 2 - Risk 2-dose series) Hepatitis A Vaccines (1 of 2 - Risk 2-dose series) [facility] Start: 1992 HEPATITIS B (1 of 3 - Risk 3-dose series) HEPATITIS B (1 of 3 - Risk 3-dose series) [facility] Start: 1992 Hepatitis B Vaccine (1 of 3 - 19+ 3-dose series) Hepatitis B Vaccine (1 of 3 - 19+ 3-dose series) [facility] Start: 1992 Urine microalbumin profile DTAP,TDAP,TD (1 - Tdap) [facility] Start: 1991 Diabetes mellitus screening Diabetes Screening [facility] Start: 1985 Depresssion Monitoring Depresssion M onitoring [facility] Start: 1978 COVID-19 VACCINE (#1) COVID-19 VACCI NE (#1) [facility] Start: 1978 COVID-19 VACCINE (1) COVID-19 VACCIN E (1) [facility] Start: 1974 HEPATITIS A (1 of 2 - Risk 2-dose series) HEPATITIS A (1 of 2 - Risk 2-dose series) [facility] Start: 1974 MMR Vaccines (1 of 1 - Standard series) MMR Vaccines (1 of 1 - Standard series) [facility] Start: 04-07-1974 COVID-19 VACCINE (#1) COVID-19 VACCI NE (#1) [facility] Start: 1973 HEPATITIS B (1 of 3 - 3-dose series) HEPATITIS B (1 of 3 - 3-dose series) [facility] Start: 1973 Hepatitis B Vaccine (1 of 3 - 3-dose series) Hepatitis B Vaccine (1 of 3 - 3-dose series) [facility] Start: 1973 Hepatitis B Vaccines (1 of 3 - 3-dose series) Hepatitis B Vaccines (1 of 3 - 3-dose series) [facility] Start: 1973 HIV screening HIV Screening [facility] Start: 1973 Screening for malign ant neoplasm of colon [facility] Bacteria identified in Urine by Culture URINE CULTURE Microbiology Routine Gross hematuria Acute cystitis with hematuria 01/31/2024 11:20 AM EDT [facility] Bacteria identified in Wound by Culture WOUND CULTURE AND GRAM STAIN Microbiology Routine Cellulitis of chin 09/29/2022 6:34 PM EST [facility] Work Phone: Bacteria identified in Wound by Culture [facility] Work Phone: End: 03-30-2025 MG Breast Screening JEANETH SCREENING Radiology Routine Encounter for screening mammogram for breast cancer 1 Occurrences starting 02/29/2024 until 03/30/2025 [facility] Work Phone: Comment on above: 1 Occurrences starti ng 02/29/2024 until 03/30/2025 End: 04-23-2023 Screening mammography bi 2-view breast inc cad JEANETH SCREENING Radiology Routine Encounter for screening mammogram for breast cancer 1 Occurrences starting 03/24/2022 until 04/23/2023 [facility] Work Phone: Comment on above: 1 Occurrences starti ng 03/24/2022 until 04/23/2023 [facility] Immunizations Immunization Date Immunization Notes Care Provider [facility] 07-20-2023 tetanus toxoid, redu viridiana diphtheria toxoid, and acellular pertussis vaccine, adsorbed Lenny Macdonald MD Work Phone: [facility] 08-06-2018 influenza, injectabl e, quadrivalent, preservative free Becca Enmanuel [employer]IST.LIFE AGENT Work Phone: [facility] 08-06-2018 influenza virus vaccine, unspecified formulation Screen Wstr [facility] 08-05-2018 pneumococcal polysaccharide vaccine, 23 valent Becca Enmanuel PROJECT CONTROLS SPECIALIST.LIFE AGENT Work Phone: [facility] NEGATED: Highlighted row has not occurred!09-11-2023 Influenza, injectable, Madin [place] Canine Kidney, preservative free, quadrivalent Lenny Macdonald MD Work Phone: [facility] Comment on above: Deferred: Patient Re fused Payers Date Payer Category Payer Medicaid [id number] 2015 Medicaid [employer] [id number] 2015-Present [phone] [address] [place] [address] Medicaid [id number] 2015 Medicaid [id number] 1973 Unknown [id number] Social History Date Type Detail Facility Start: 04-14-2017 End: 05-09-2022 Tobacco smoking status NHIS Smokes tobacco daily [facility] Work Phone: History of tobacco use Cigarette Smoker [facility] Work Phone: Start: 01-11-2022 End: 01-31-2024 Alcohol intake Current drinker of alcohol (finding) [facility] Start: 02-28-2020 History SDOH Alcohol Frequency 3 [facility] Start: 12-10-2011 History SDOH Alcohol Comment occasionally mixed drink [facility] Start: 04-14-2017 End: 05-09-2022 Tobacco Comment maybe more then 1 pack daily [facility] Start: 1975 Sex Assigned At Not on file [facility] Start: 01-01-2022 End: 05-26-2022 Exposure to SARS-CoV-2 (event) Not sure [facility] Work Phone: Start: 04-14-2017 End: 11-18-2023 Cigarettes smoked current (pack per day) - Reported 1 [facility] Work Phone: Start: 04-14-2017 End: 05-09-2022 Tobacco use and exposure Smokeless tobacco non-user [facility] Start: 04-30-2022 End: 05-10-2022 Exposure to SARS-CoV-2 (event) Yes [facility] Start: 02-28-2020 End: 11-18-2023 Alcohol Use Disorder Identification Test - Consumption [AUDIT-C] [facility] Work Phone: How often to you hav e a drink containing alcohol? 2-4 times a month [facility] Work Phone: Average Number of Drinks Not on file [facility] Tobacco smoking stat us NHIS Tobacco smoking consumption unknown [facility] Within the last year , have you been afraid of your partner or ex-partner? No [facility] How often to you hav e a drink containing alcohol? Never [facility] Start: 08-22-2023 Alcohol Comment daily use of liquor and other alcohol [facility] How hard is it for y ou to pay for the very basics like food, housing, medical care, and heating Somewhat hard [facility] (I/We) worried ben er (my/our) food would run out before (I/we) got money to buy more. Never true [facility] Start: 11-17-2023 Alcohol Comment not daily but frequent [facility] Start: 03-23-2024 Tobacco smoking status Heavy tobacco smoker (finding) [facility] Tobacco smoking status Smoker (finding) [facility] Sex Assigned At Sex [facility] Functional Status Date Assessment Result Facility 03-23-2024 Functional Status Up ad cyn [facility] spital [facility] 03-23-2024 Functional Status Standard Safet y ID band on, Allergy Band on, Call device within reach, Bed in low position, Wheels locked, Visitor at bedside [facility] Mental Status Date Assessment Result Facility 03-23-2024 Mental Status Orientation Oriented x 4 [facility] 03-23-2024 Mental Status [facility] Clinical Notes 01-11-2022 to 03-28-2024 Melisa Main MD - 02/07/2024 8:36 AM EDTTelephone Encounter - Ashanti Squires PA-C - 02/07/2024 7:45 AM EDTTelephone Encounter - Ashanti Squires PA-C - 02/07/2024 7:45 AM EDT Note Date & Type Note Facility 03-28-2024 Note . MICRO - Microbiology PROCEDURE: Blood Culture (bacterial) [*1] SOURCE: Blood BODY SITE: COLLECTED DATE/TIME: 03/23/2024 16:32 EDT RECEIVED DATE/TIME: 03/23/2024 21:05 EDT START DATE/TIME: 03/23/2024 21:06 EDT FREE TEXT SOURCE: FINAL REPORTS Final Report [] Verified Date/Time/Personnel: 03/28/2024 21:59 EDT Blood Culture: No Growth at 5 days. PRELIMINARY REPORTS Preliminary Report [] Verified Date/Time/Personnel: 03/23/2024 21:59 EDT Culture has been received in lab and is no growth to date. Routine cultures are held for 5 days. Performing Locations *1: This test was performed at: [address], [facility] , [facility] ([place]) 03-28-2024 Note . MICRO - Microbiology PROCEDURE: Blood Culture (bacterial) [*1] SOURCE: Blood BODY SITE: COLLECTED DATE/TIME: 03/23/2024 16:32 EDT RECEIVED DATE/TIME: 03/23/2024 21:05 EDT START DATE/TIME: 03/23/2024 21:06 EDT FREE TEXT SOURCE: FINAL REPORTS Final Report [] Verified Date/Time/Personnel: 03/28/2024 21:59 EDT Blood Culture: No Growth at 5 days. PRELIMINARY REPORTS Preliminary Report [] Verified Date/Time/Personnel: 03/23/2024 21:59 EDT Culture has been received in lab and is no growth to date. Routine cultures are held for 5 days. Performing Locations *1: This test was performed at: [address], [facility] , [facility] ([place]) 03-23-2024 Hospital Discharge instructions Patient Education 03/23/2024 17:50:27 Cellulitis Skin Infection Cellulitis Cellulitis is an infection of the deep layers of skin. A break in the skin, such as a cut or scratch, can let bacteria under the skin. If the bacteria get to deep layers of the skin, it can be serious. If not treated, cellulitis can get into the bloodstream and lymph nodes. The infection can then spread throughout the body. This causes serious illness. Cellulitis causes the affected skin to become red, swollen, warm, and sore. The reddened areas have a visible border. An open sore may leak fluid (pus). You may have a fever, chills, and pain. Cellulitis is treated with antibiotics taken for 7 to 10 days. An open sore may be cleaned and covered with cool wet gauze. Symptoms should get better 1 to 2 days after treatment is started. Make sure to take all the antibiotics for the full number of days until they are gone. Keep taking the medicine even if your symptoms go away. Home care Follow these tips: Limit the use of the part of your body with cellulitis. If the infection is on your leg, keep your leg raised while sitting. This will help to reduce swelling. Take all of the antibiotic medicine exactly as directed until it is gone. Do not miss any doses, especially during the first 7 days. Don t stop taking the medicine when your symptoms get better. Keep the affected area clean and dry. Wash your hands with soap and warm water before and after touching your skin. Anyone else who touches your skin should also wash his or her hands. Don't share towels. Follow-up care Follow up with your healthcare provider, or as advised. If your infection does not go away on the first antibiotic, your healthcare provider will prescribe a different one. When to seek medical advice Call your healthcare provider right away if any of these occur: Red areas that spread Swelling or pain that gets worse Fluid leaking from the skin (pus) Fever higher of 100.4 F (38.0 C) or higher after 2 days on antibiotics [id number] [employer]. [address] [place] [address]. All rights reserved. This information is not intended as a substitute for professional medical care. Always follow your healthcare professional's instructions. Follow Up Care 03/23/2024 14:19:24 With:DACIA ACOSTA MD Address: [address] [place] [address] [phone] When:2-4 days [facility] 03-23-2024 Note Discharge Instructions Thank you for allowing [facility] to assist you with your healthcare needs. The following is important discharge information regarding your hospital visit. Diagnosis from Today's Visit Cellulitis What to Do Next Instructions from Your Care Team No qualifying data available. Post Acute Orders No qualifying data available. You Need to Schedule the Following Appointments Follow Up with DACIA ACOSTA MD When:Within 2-4 days Where:[address] [place] [phone]- Allergies Wellbutrin aspirin Hives codeine Hives Medications Please ask your primary doctor or pharmacist before taking any other medication not listed, including over the counter drugs, herbal medications, vitamins and or supplements as they may interact with your home medications. What How Much When Instructions Last Dose New cephalexin (cephalexin 500 mg oral capsule) 1 cap by mouth Four (4) times a day Duration: 7 Days Printed Prescription Unchanged ARIPiprazole (ARIPiprazole 10 mg oral tablet) 1 tab(s) by mouth Once a day Unchanged ascorbic acid (Vitamin C 500 mg oral tablet) 1 tab(s) by mouth Once a day Unchanged desvenlafaxine (desvenlafaxine (as succinate) 50 mg oral tablet, extended release) 1 tab(s) by mouth Every day Unchanged DULoxetine (Cymbalta) by mouth Unchanged ferrous sulfate (FeroSul 325 mg (65 mg elemental iron) oral tablet) 1 tab(s) by mouth Once a day Unchanged gabapentin (gabapentin 100 mg oral capsule) 1 cap by mouth Two (2) times a day Unchanged hydrOXYzine (hydrOXYzine pamoate 50 mg oral capsule) 1 cap by mouth Four (4) times a day Unchanged ibuprofen (ibuprofen 600 mg oral tablet) 1 tab(s) by mouth Every 6 hours as needed for for pain Take with food or milk. Unchanged melatonin (Melatonin 5 mg oral tablet) 1 tab(s) by mouth Daily at bedtime as needed for as needed for insomnia Unchanged mupirocin topical (mupirocin 2% topical ointment) 1 application Topical Three (3) times a day Unchanged spironolactone (spironolactone 50 mg oral tablet) 1 tab(s) by mouth Once a day Unchanged topiramate (topiramate 25 mg oral tablet) 1 tab(s) by mouth Two (2) times a day Unchanged traZODone (traZODone 100 mg oral tablet) 1 tab(s) by mouth Three (3) times a day Unchanged zolpidem (Ambien 10 mg oral tablet) 1 tab(s) by mouth Daily at bedtime as needed for as needed for sleep Please take this list to your next doctor s visit. Bring all medications you take, including over the counter medications, herbals and other supplements with you to your doctor s visit. Patients and families are reminded to discard old lists and to update any records with all medication providers or retail pharmacies. Medication Leaflets cephalexin (sef a JOSE RAUL in) What is the most important information I should know about cephalexin? You should not use this medicine if you are allergic to cephalexin or to similar antibiotics, such as Ceftin, Cefzil, Omnicef, and others. Tell your doctor if you are allergic to any drugs, especially penicillins or other antibiotics. What is cephalexin? Cephalexin is a cephalosporin (SEF a low spor in) antibiotic that is used to treat bacterial infections of the lungs, ear, skin, bones, bladder, and kidneys. Cephalexin is used to treat infections in adults and children who are at least 1 year old. Cephalexin may also be used for purposes not listed in this medication guide. What should I discuss with my healthcare provider before taking cephalexin? You should not use this medicine if you are allergic to cephalexin or any other cephalosporin antibiotic (cefdinir, cefadroxil, cefoxitin, cefprozil, ceftriaxone, cefuroxime, Omnicef, and others). Tell your doctor if you have ever had: an allergy to any drug (especially penicillin); liver or kidney disease; or intestinal problems, such as colitis. The liquid form of cephalexin may contain sugar. This may affect you if you have diabetes. Tell your doctor if you are or breast-feeding. How should I take cephalexin? Follow all directions on your prescription label and read all medication guides or instruction sheets. Use the medicine exactly as directed. Do not use cephalexin to treat any condition that has not been checked by your doctor. Measure liquid medicine carefully. Use the dosing syringe provided, or use a medicine dose-measuring device (not a kitchen spoon). Use this medicine for the full prescribed length of time, even if your symptoms quickly improve. Skipping doses can increase your risk of infection that is resistant to medication. Cephalexin will not treat a viral infection such as the flu or a common cold. Do not share cephalexin with another person, even if they have the same symptoms you have. This medicine can affect the results of certain medical tests. Tell any doctor who treats you that you are using cephalexin. Store the tablets and capsules at room temperature away from moisture, heat, and light. Store the liquid medicine in the refrigerator. Throw away any unused liquid after 14 days. What happens if I miss a dose? Take the medicine as soon as you can, but skip the missed dose if it is almost time for your next dose. Do not take two doses at one time. What happens if I overdose? Seek emergency medical attention or call the Poison Help line at . Overdose symptoms may include nausea, vomiting, stomach pain, diarrhea, and blood in your urine. What should I avoid while taking cephalexin? Antibiotic medicines can cause diarrhea, which may be a sign of a new infection. If you have diarrhea that is watery or bloody, call your doctor before using anti-diarrhea medicine. What are the possible side effects of cephalexin? Get emergency medical help if you have signs of an allergic reaction (hives, difficult breathing, swelling in your face or throat) or a severe skin reaction (fever, sore throat, burning eyes, skin pain, red or purple skin rash with blistering and peeling). Call your doctor at once if you have: severe stomach pain, diarrhea that is watery or bloody (even if it occurs months after your last dose); unusual tiredness, feeling light-headed or short of breath; easy bruising, unusual bleeding, purple or red spots under your skin; a seizure; pale skin, cold hands and feet; yellowed skin, dark colored urine; fever, weakness; or pain in your side or lower back, painful urination. Common side effects may include: diarrhea; nausea, vomiting; indigestion, stomach pain; or vaginal itching or discharge. This is not a complete list of side effects and others may occur. Call your doctor for medical advice about side effects. You may report side effects to FDA at 2-755-DSL-9542. What other drugs will affect cephalexin? Tell your doctor about all your other medicines, especially: metformin; or probenecid. This list is not complete. Other drugs may affect cephalexin, including prescription and dcee-hzy-qkmppve medicines, vitamins, and herbal products. Not all possible drug interactions are listed here. Where can I get more information? Your pharmacist can provide more information about cephalexin. Remember, keep this and all other medicines out of the reach of children, never share your medicines with others, and use this medication only for the indication prescribed. Every effort has been made to ensure that the information provided by [employer] is accurate, up-to-date, and complete, but no guarantee is made to that effect. Drug information contained herein may be time sensitive. [employer] information has been compiled for use by healthcare practitioners and consumers in the [place] and therefore [employer] does not warrant that uses outside of the [place] are appropriate, unless specifically indicated otherwise. [employer] drug information does not endorse drugs, diagnose patients or recommend therapy. [employer] drug information is an informational resource designed to assist licensed healthcare practitioners in caring for their patients and/or to serve consumers viewing this service as a supplement to, and not a substitute for, the expertise, skill, knowledge and judgment of healthcare practitioners. The absence of a warning for a given drug or drug combination in no way should be construed to indicate that the drug or drug combination is safe, effective or appropriate for any given patient. [employer] does not assume any responsibility for any aspect of healthcare administered with the aid of information [employer] provides. The information contained herein is not intended to cover all possible uses, directions, precautions, warnings, drug interactions, allergic reactions, or adverse effects. If you have questions about the drugs you are taking, check with your doctor, nurse or pharmacist. Copyright [id number] [employer]. Version: 12.. Revision Date: 04/27/2023. Education Materials Cellulitis Cellulitis is an infection of the deep layers of skin. A break in the skin, such as a cut or scratch, can let bacteria under the skin. If the bacteria get to deep layers of the skin, it can be serious. If not treated, cellulitis can get into the bloodstream and lymph nodes. The infection can then spread throughout the body. This causes serious illness. Cellulitis causes the affected skin to become red, swollen, warm, and sore. The reddened areas have a visible border. An open sore may leak fluid (pus). You may have a fever, chills, and pain. Cellulitis is treated with antibiotics taken for 7 to 10 days. An open sore may be cleaned and covered with cool wet gauze. Symptoms should get better 1 to 2 days after treatment is started. Make sure to take all the antibiotics for the full number of days until they are gone. Keep taking the medicine even if your symptoms go away. Home care Follow these tips: Limit the use of the part of your body with cellulitis. If the infection is on your leg, keep your leg raised while sitting. This will help to reduce swelling. Take all of the antibiotic medicine exactly as directed until it is gone. Do not miss any doses, especially during the first 7 days. Don t stop taking the medicine when your symptoms get better. Keep the affected area clean and dry. Wash your hands with soap and warm water before and after touching your skin. Anyone else who touches your skin should also wash his or her hands. Don't share towels. Follow-up care Follow up with your healthcare provider, or as advised. If your infection does not go away on the first antibiotic, your healthcare provider will prescribe a different one. When to seek medical advice Call your healthcare provider right away if any of these occur: Red areas that spread Swelling or pain that gets worse Fluid leaking from the skin (pus) Fever higher of 100.4 F (38.0 C) or higher after 2 days on antibiotics [phone] [employer]. [address] [place] [address]. All rights reserved. This information is not intended as a substitute for professional medical care. Always follow your healthcare professional's instructions. Additional Information VACCINATE! IT SAVES LIVES! Members of the community who have not yet received the COVID-19 vaccine and would like to receive it can visit one of [facility] vaccine clinics. There are many vaccine clinic locations within the [facility]. For locations and available times, please visit [email or web address] It is important to note that some COVID mobile vaccine clinics are held outdoors and may be canceled in rainy or stormy conditions. To learn more about pediatric vaccinations (ages 5-11), we invite you to visit the [facility] webpage. [email or web address] To learn more about the COVID-19 vaccine, we invite you to visit the CDC website for a list of frequently asked questions. https://www.cdc.gov/coronavirus/2 019-ncov/vaccines/faq.html [facility] Patient Portal Access Instructions: Stay connected with your healthcare team and access your personal medical information anytime with the [employer] Patient Portal. If you would like a full copy of your medical records please contact the [facility] Medical Records Department Tuesday through Tuesday between 8a.m. and 4:30p.m. Please follow the directions below to access the portal: 1.Access the email account you provided upon registration to the [facility].2.Look for an invitation email from [facility].3.Open the email and access the invitation link: Accept Invitation to [facility].Fill in the required dhillon to create your account. Sign into [email or web address] with your username and password that you created in the above steps to stay up to date. You can then view a summary of results, a summary of your visits, and the ability to download your summaries to your computer or send the information securely to a physician. Remember that your healthcare information is confidential, so carefully consider who you will allow to register on the [employer] Patient Portal for access to your information. You can also access the [facility] Patient Portal on the [employer]. Simply click on Health Records under Health Data and then click on the [employer] logo. HOW TO SAFELY DISPOSE OF PRESCRIPTION MEDICATIONS Please use one of the following methods to safely dispose of your unused medications. 1.Use a drug disposal kit: the drug disposal pouch allows you to safely discard your old and unused drugs. Ask your nurse to give you one when you are discharged.2.Visit a local take-back location: Many local pharmacies and police departments have programs that collect old and unwanted prescription drugs. Call your local pharmacy or go to http://WhatsApp.NEHP/9V0Wj2v to find one close to you.3.Make use of household items: Use cat litter or old coffee grounds to dispose medications if other options are not available. Mix your drugs with these household products, seal them in an airtight container and throw it into the garbage. Call [facility]: [phone] to be sure your drugs can be disposed of in this way. Some medicines may require a different approach.4.Never flush your medications down the toilet. IF YOU HAVE BEEN PRESCRIBED AN OPIOIDS FOR PAIN If you have been prescribed an opioid (such as hydrocodone, oxycodone or morphine), it is critical to understand the possible side effects and risks of opioid pain medications. Even when taken as directed, opioids can have several side effects including: Tolerance, meaning you might need to take more of a medication for the same pain relief. Nausea, vomiting and/or constipation. Sleepiness, dizziness, dry mouth, confusion, depression or itching. Physical dependence, meaning you have withdrawal symptoms when a medication is stopped ? this can develop within a few days. KNOW YOUR RESPONSIBILITIES It is important to know exactly how much and how often to take the opioid pain medications you are prescribed. Never take opioids in higher amounts or more often than prescribed. Do not combine opioids with alcohol or other drugs that cause drowsiness, such as benzodiazepines, also known as benzos, including diazepam and alprazolam, muscle relaxants or sleep aids. Never sell or share prescription opioids. This is illegal. Store opioids in a secure place and out of reach of others (including children, family, friends and visitors). The last page(s) of this document has been signed and retained as a CHART COPY Signatures Patient Education Materials Cellulitis Skin Infection Medication Leaflets cephalexin My discharge plan and instructions have been reviewed and explained to me and IKATJA LAURA T understand my current condition and have read and understand these discharge instructions. I have received a written copy of the plan/instructions. If I have questions, I am aware that I should contact my doctor. 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 Axial images were obtained through the neck with multiplanar reformats. Low dose CT acquisition technique included one of the following options: 1. Automated exposure control, 2. Adjustment of the MA and/or KV according to patient size, or 3. Use of iterative reconstruction. DICOM images are available. COMPARISON: None. HISTORY: ORDERING SYSTEM PROVIDED HISTORY: Reason for Exam: Difficulty swallowing, painful chin, rule out abscess FINDINGS: Soft tissues: Subcutaneous induration just anterior and caudal to the central mandible is identified (axial image 49 series 2 and sagittal image 39 series 602). No discrete abscess or drainable fluid collection is present. There are adjacent subcentimeter reactive lymph nodes. Aerodigestive tract: No primary lesion identified within the nasopharynx, oropharynx, hypopharynx, larynx, and proximal trachea. Salivary glands: Unremarkable. Thyroid: Unremarkable. Lymph nodes : There are non-specific scattered sub-centimeter lymph nodes in the neck bilaterally. No pathologically enlarged or morphologically suspicious adenopathy. Vessels: Unremarkable. Bones: No acute osseous pathology. Straightening of the normal cervical lordosis. Paranasal sinuses: Clear. Rightward nasal septal deviation. Visualized lung apices: Clear. Visualized brain parenchyma: No acute pathology. Additional comment: None. IMPRESSION: Subcutaneous induration just anterior and caudal to the central mandible without a discrete abscess or drainable fluid collection. Interpreted by: Jt Mccullough MD Preliminary Report By: Jt Mccullough MD Electronically signed By Jt Mccullough MD Dictated Date: 03/23/2024 5:00:42 PM Prelim Date: 03/23/2024 5:09:20 PM Sign Date: 03/23/2024 5:09:20 PM Ordering Provider: HAYDER DIEHL [facility] 02-29-2024 Note Patient Outreach (IN [facility]) CAROLINA HIGHTOWER ([id number]) 1975 F Date Time Provider Department 02/29/24 DACIA ACOSTA During your visit today, we recorded the following information about you: Allergies As of Date: 02/29/2024 Noted Allergy Reaction ASPIRIN 06/02/2005 Comments: UNCERTAIN =CHILDHOOD BUPROPION 06/11/2019 14 - Other: See Comments CODEINE 06/02/2005 2 - Rash PREDNISONE 06/19/2019 2 - Rash WELLBUTRIN (BUPROPION HCL) 09/29/2012 14 - Other: See Comments Comments: seizures Date Reviewed: 02/07/2024 Reviewed by: Halina Valencia MA - Fully Assessed Visit Diagnosis:Encounter for screening mammogram for breast cancer [Z12.31] Order(s):[facility] SCREEN[facility] [[id number]] Order #: [id number] FUTURE Prescriptions as of 03/05/2024 - ibuprofen (MOTRIN) 600 mg tablet Take 1 tablet by mouth every 6 hours as needed for pain. - mupirocin (BACTROBAN) 2 % ointment Apply to affected area three times a day. - hydrOXYzine HCl (ATARAX) 25 mg tablet Take 1 tablet by mouth every 6 hours as needed for itching/rash. - ferrous sulfate 325 mg (65 mg iron) tablet Take 1 tablet by mouth once daily. - ascorbic acid, vitamin C, (VITAMIN C) 500 mg tablet Take 1 tablet by mouth once daily. - gabapentin (NEURONTIN) 100 mg capsule Take 1 capsule by mouth two times a day for 180 days. - spironolactone (ALDACTONE) 100 mg tablet Take 1 tablet by mouth once daily. - nicotine (NICODERM) 21 mg/24 hr Apply 1 Patch as directed as directed. - furosemide (LASIX) 40 mg tablet Take 1 tablet by mouth once daily. - ondansetron orally disintegrating (ZOFRAN ODT) 4 mg disintegrating tablet Take 1 tablet by mouth every 6 hours as needed for nausea/vomiting. - albuterol HFA (PROAIR HFA) 90 mcg/actuation inhaler Inhale 2 Puffs as instructed every 4 hours as needed. - spironolactone (ALDACTONE) 50 mg tablet Take 1 tablet by mouth once daily. - pantoprazole DR (PROTONIX) 40 mg tablet Take 1 tablet by mouth twice daily before meals. Take on empty stomach, 1/2 hr before meal. - lactulose (DUPHALAC, CONSTULOSE) 10 gram/15 mL solution - furosemide (LASIX) 20 mg tablet Take 1 tablet by mouth once daily. Meds Comments as of 05/15/2022: Pt reports she took last dose of doxycycline this morning 05/15/2022 Problem List As Of Date 02/29/2024 Noted Resolved Major depression [F32.9] 04/03/2007 LUMBAGO [M54.50] 02/12/2008 Insomnia [G47.00] 07/02/2009 GERD (gastroesophageal reflux disease) [K21.9] 08/24/2010 Myofascial pain [M79.18] 12/10/2011 Physical deconditioning [R53.81] 12/10/2011 Lumbar strain [S39.012A] 12/10/2011 Tobacco abuse [Z72.0] 04/14/2017 Retroperitoneal bleed [R58] 08/05/2018 Chronic hepatitis C without hepatic coma (HCC) *08/05/2018 Abdominal pain [R10.9] 11/18/2023 Acute respiratory failure with hypoxia and hype*11/19/2023 Community acquired pneumonia of right lung [J18*11/19/2023 Cirrhosis of liver with ascites (HCC) (HCC) [K*11/19/2023 Severe sepsis (HCC) [A41.9, R65.20] 11/19/2023 Chronic anemia [D64.9] 11/19/2023 Thrombocytopenia (HCC) [D69.6] 11/19/2023 Nicotine use disorder, F17.2 [F17.200] 11/20/2023 Encounter Status:Closed by Jelastic, PRODUSER on 03/05/24 [facility] 02-07-2024 Note HNO ID: [id number] Author: MELISA MAIN MD Service: ? Author Type: Physician Type: Progress Notes Filed: 02/07/2024 13:59 Note Text: CC: Patient presents with: Rash: Chin /left foot HPI: 48 year old female patient here for: Recurrent pimple and ulceration on chin Cultures + for MRSA in past Patient notes area starts as a pimple, she cannot help but manipulate it Becomes an ulcer Eventually heals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 once daily. (Patient not taking: Reported on 12/13/2023) No current facility-administered medications for this visit. SOCIAL HISTORY Social History Tobacco Use Smoking status: Every Day Packs/day: 1.00 Years: 19.00 Additional pack years: 0.00 Total pack years: 19.00 Types: Cigarettes Smokeless tobacco: Never Tobacco comments: maybe more then 1 pack daily Vaping Use Vaping Use: Never used Substance Use Topics Alcohol use: Yes Comment: not daily but frequent Drug use: Yes Types: Marijuana, Amphetamines, Ecstasy Comment: as much as possible-Meth last used beginning of Sep REVIEW OF SYSTEMS See HPI OBJECTIVE: BP 116/54 (BP Site: Left Arm, BP Position: Sitting, BP Cuff Size: Large Adult) Pulse 69 Temp 36.3 C (97.4 F) Resp 12 Ht 157.5 cm (5' 2 ) Wt 73.9 kg (163 lb) LMP 11/20/2020 (Approximate) SpO2 100% BMI 29.81 kg/m APPEARANCE Well appearing, alert, in no acute distress, well-hydrated, well nourished. BACK: No CVA SKIN approximately nickel sized skin ulceration on chin. No active drainage. No significant surrounding erythema. + TTP. No streaking. Small 0.5 cm skin wound without drainage. Mild surrounding erythema no lymphangitis streaking. No fluctuance. Similar lesion on left dorsal aspect of foot approximately dime sized. No lymphangitic streaking. + TTP. ASSESSMENT/PLAN: 1. Skin sore - ICD9: 709.9, ICD10: L98.9 (primary diagnosis) Wound culture of chin and foot. Keflex to cross cover for UTI pending wound culture. - ABSCESS AND WOUND CULTURE WITH GRAM STAIN - ABSCESS AND WOUND CULTURE WITH GRAM STAIN - CEPHALEXIN 500 MG CAPSULE 2. Gross hematuria - ICD9: 599.71, ICD10: R31.0 Acute cystitis, UA dip positive for large hemoglobin, positive nitrite, small leuks, + protein. - UA DIP, URINE (POC) - URINE CULTURE 3. Acute cystitis with hematuria - ICD9: 595.0, ICD10: N30.01 Start keflex to cross cover skin infection. - CEPHALEXIN 500 MG CAPSULE - URINE CULTURE 4. Anxiety with depression - ICD9: 300.4, ICD10: F41.8 As prn F/u with psychiatry. Reviewed red flags and when to seek care sooner. Seek immediate care for SI/HI - HYDROXYZINE HCL 25 MG TABLET The patient indicates understanding of these issues and agrees with the plan. 01/31/2024 Ashanti Squires PA-C documented in this encounter [facility] 01-19-2024 Telephone encounter Note The following approved medication requests have been transmitted electronically. Requested Prescriptions Signed Prescriptions Disp Refills ferrous sulfate 325 mg (65 mg iron) tablet 30 tablet 5 Sig: Take 1 tablet by mouth once daily. Authorizing Provider: DACIA ACOSTA ascorbic acid, vitamin C, (VITAMIN C) 500 mg tablet 30 tablet 5 Sig: Take 1 tablet by mouth once daily. Authorizing Provider: DACIA ACOSTA gabapentin (NEURONTIN) 100 mg capsule 60 capsule 5 Sig: Take 1 capsule by mouth two times a day for 180 days. Authorizing Provider: DACIA ACOSTA MA [facility] 01-19-2024 Miscellaneous Notes The following approved medication requests have been transmitted electronically. Requested Prescriptions Signed Prescriptions Disp Refills ferrous sulfate 325 mg (65 mg iron) tablet 30 tablet 5 Sig: Take 1 tablet by mouth once daily. Authorizing Provider: DACIA ACOSTA ascorbic acid, vitamin C, (VITAMIN C) 500 mg tablet 30 tablet 5 Sig: Take 1 tablet by mouth once daily. Authorizing Provider: DACIA ACOSTA gabapentin (NEURONTIN) 100 mg capsule 60 capsule 5 Sig: Take 1 capsule by mouth two times a day for 180 days. Authorizing Provider: DACIA ACOSTA MA OK to refill as ordered Dacia Acosta MD Patient has been identified by name and date of : Yes, Provider Dr. Acosta Date 01/19/24 Time 10:11 am Pharmacy phones for refill(s): Requested Prescriptions Pending Prescriptions Disp Refills ferrous sulfate 325 mg (65 mg iron) tablet 30 tablet 1 Sig: Take 1 tablet by mouth once daily. ascorbic acid, vitamin C, (VITAMIN C) 500 mg tablet 30 tablet 1 Sig: Take 1 tablet by mouth once daily. gabapentin (NEURONTIN) 100 mg capsule 60 capsule 5 Sig: Take 1 capsule by mouth two times a day for 180 days. Date of last office visit in primary care: 12/13/2023 Date of next office visit in primary care: Visit date not found No call back needed. Please advise. Thank you. Wendy Mcclain LPN. documented in this encounter [facility] 01-19-2024 Telephone encounter Note OK to refill as ordered Dacia Acosta MD [facility] 01-19-2024 Telephone encounter Note Patient has been identified by name and date of : Yes, Provider Dr. Acosta Date 01/19/24 Time 10:11 am Pharmacy phones for refill(s): Requested Prescriptions Pending Prescriptions Disp Refills ferrous sulfate 325 mg (65 mg iron) tablet 30 tablet 1 Sig: Take 1 tablet by mouth once daily. ascorbic acid, vitamin C, (VITAMIN C) 500 mg tablet 30 tablet 1 Sig: Take 1 tablet by mouth once daily. gabapentin (NEURONTIN) 100 mg capsule 60 capsule 5 Sig: Take 1 capsule by mouth two times a day for 180 days. Date of last office visit in primary care: 12/13/2023 Date of next office visit in primary care: Visit date not found No call back needed. Please advise. Thank you. Wendy Mcclain LPN. [facility] 12-13-2023 History of Present illness Narrative Chief Complaint Patient presents with: ER F/U: [facility] multiple times from 10/2023-11/3023: abdominal pain, cirrhosis of liver, ascites HPI Carolina Hightower is a 48 year old female who presents here today for Hospital Discharge Follow up. Patient is here for emergency room and hospital follow-up. Patient has had multiple trips to the emergency room at [facility]. This is ranged from October 2023 throughout November 2023 she was most recently in the emergency room on 12/08 for complaints of abdominal pain. Patient has a history of cirrhosis of the liver, portal hypertension, ascites, chronic hepatitis C. She has had paracentesis completed. States that she has continued feelings of fullness, bloating, nausea. She states that her pain can range from very mild to severe at times. Paracentesis has helped with reducing pain. She has follow-up with gastroenterology, Dr. Porras in December. She is here today to ask for pain management of her symptoms. I discussed with her given that she has history of polysubstance abuse, narcotics would not be the recommended course of action. She is telling me that Dr. Porras's office sent her here for this management. I discussed that this is inappropriate. I discussed that if she has diffuse abdominal pain and her computer builder cannot fit her into his schedule, she would need to go to the emergency room. 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 I discussed that repeating a CAT scan would not be advisable at this time. She did request a refill of Zofran and Vistaril for itching and nausea. She cites that she is confused on her medications and what she is supposed to be taking. She did not bring them to this appointment, nor did she bring an updated list from her most recent hospitalization discharge paperwork. I discussed with her that this would be helpful in the future. Past medical history, appointments, medications, allergies reviewed. EXAM: BP 91/62 Pulse 68 Temp 36.6 C (97.9 F) (Left Tympanic) Resp 16 Wt 81.7 kg (180 lb 3.2 oz) LMP 11/20/2020 (Approximate) SpO2 99% BMI 32.96 kg/m General Appearance: Well appearing, alert, in no acute distress, well-hydrated, well nourished.. Abdomen:distended, hard, moderately tender ASSESSMENT/PLAN: 1. Chronic hepatitis C without hepatic coma (HCC) - ICD9: 070.54, ICD10: B18.2 (primary diagnosis) -Patient presenting for hospital follow-up involving being under the care of a specialist for these disease and symptoms. I discussed with her that she needs to return to her computer builder for evaluation. I discussed that if she is unable to get back into gastroenterology in a timely manner and her pain increases then she should return to the emergency room for further evaluation. 2. Cirrhosis of liver with ascites, unspecified hepatic cirrhosis type (HCC) (HCC) - ICD9: 571.5, ICD10: K74.60, R18.8 3. Other ascites - ICD9: 789.59, ICD10: R18.8 4. Nausea and vomiting, unspecified vomiting type - ICD9: 787.01, ICD10: R11.2 - ONDANSETRON 4 MG DISINTEGRATING TABLET Mervin Matthews APRN.CNP This note was partly generated using [employer] voice recognition dictation and may contain some misspelled or inaccurate words missed on review. documented in this encounter [facility] 12-13-2023 Note HNO ID: [id number] Author: MERVIN MATTHEWS APRN.CNP Service: ? Author Type: Nurse Practitioner Type: Progress Notes Filed: 12/13/2023 14:13 Note Text: Chief Complaint Patient presents with: ER F/U: [facility] multiple times from 10/2023-11/3023: abdominal pain, cirrhosis of liver, ascites HPI Carolina Hightower is a 48 year old female who presents here today for Hospital Discharge Follow up. Patient is here for emergency room and hospital follow-up. Patient has had multiple trips to the emergency room at [facility]. This is ranged from October 2023 throughout November 2023 she was most recently in the emergency room on 12/08 for complaints of abdominal pain. Patient has a history of cirrhosis of the liver, portal hypertension, ascites, chronic hepatitis C. She has had paracentesis completed. States that she has continued feelings of fullness, bloating, nausea. She states that her pain can range from very mild to severe at times. Paracentesis has helped with reducing pain. She has follow-up with gastroenterology, Dr. Porras in December. She is here today to ask for pain management of her symptoms. I discussed with her given that she has history of polysubstance abuse, narcotics would not be the recommended course ofaction. She is telling me that Dr. Porras's office sent her here for this management. I discussed that this is inappropriate. I discussed that if she has diffuse abdominal pain and her computer builder cannot fit her into his schedule, she would need to go to the emergency room. 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 I discussed that repeating a CAT scan would not be advisable at this time. She did request a refill of Zofran and Vistaril for itching and nausea. She cites that she is confused on her medications and what she is supposed to be taking. She did not bring them to this appointment, nor did she bring an updated list from her most recent hospitalization discharge paperwork. I discussed with her that this would be helpful in the future. Past medical history, appointments, medications, allergies reviewed. EXAM: BP 91/62 Pulse 68 Temp 36.6 ?C (97.9 ?F) (Left Tympanic) Resp 16 Wt 81.7 kg (180 lb 3.2 oz) LMP 11/20/2020 (Approximate) SpO2 99% BMI 32.96 kg/m? General Appearance: Well appearing, alert, in no acute distress, well-hydrated, well nourished.. Abdomen:distended, hard, moderately tender ASSESSMENT/PLAN: 1. Chronic hepatitis C without hepatic coma (HCC) - ICD9: 070.54, ICD10: B18.2 (primary diagnosis) -Patient presenting for hospital follow-up involving being under the care of a specialist for these disease and symptoms. I discussed with her that she needs to return to her computer builder for evaluation. I discussed that if she is unable to get back into gastroenterology in a timely manner and her pain increases then she should return to the emergency room for further evaluation. 2. Cirrhosis of liver with ascites, unspecified hepatic cirrhosis type (HCC) (HCC) - ICD9: 571.5, ICD10: K74.60, R18.8 3. Other ascites - ICD9: 789.59, ICD10: R18.8 4. Nausea and vomiting, unspecified vomiting type - ICD9: 787.01, ICD10: R11.2 - ONDANSETRON 4 MG DISINTEGRATING TABLET Mervin Matthews APRN.CNP This note was partly generated using Mirifice voice recognition dictation and may contain some misspelled or inaccurate words missed on review. [facility] 12-12-2023 Miscellaneous Notes Pt canceled appointment. Pt called in and reported she wouldn't be able to make it to her 220 pm appointment because she didn't have any way to make it in. She states she has been in and out of the hospital the past month due to pain, and she can't stand it. I told her in order to be prescribed anything for pain she would have to be seen. Pt states she doesn't want her appointment canceled, she will try to make it to the bus to get here. She states she will call in later if she is not able to make it in. documented in this encounter [facility] 12-07-2023 Note HNO ID: [id number] Author: PRISCILLA RODRIGUEZ RN Service: ? Author Type: Registered Nurse Type: Progress Notes Filed: 12/07/2023 14:51 Note Text: TRANSITION CARE MANAGEMENT (TCM) FOLLOW-UP NOTE Provider Action/FYI: Spoke to patient. States she was admitted to [facility] Tuesday. (12/04/23) Pt states she was admitted for cirrhosis Apologized to the patient. Telephone outreach ended. Patient identified by name and date of : YES Spoke to patient Discharge Network Status: In-Network Discharge Concerns: Pt is currently admitted at [facility] plan for next outreach: No further follow up needed at this time YANELI Education Ordered -: No Signature Priscilla Rodriguez RN December 07, 2023 [facility] 12-07-2023 History of Present illness Narrative TRANSITION CARE MANAGEMENT (TCM) FOLLOW-UP NOTE Provider Action/FYI: Spoke to patient. States she was admitted to [facility] Tuesday. (12/04/23) Pt states she was admitted for cirrhosis Apologized to the patient. Telephone outreach ended. Patient identified by name and date of : YES Spoke to patient Discharge Network Status: In-Network Discharge Concerns: Pt is currently admitted at [facility] plan for next outreach: No further follow up needed at this time YANELI Education Ordered -: No Signature Priscilla Rodriguez RN December 07, 2023 documented in this encounter [facility] 12-07-2023 Note Patient Outreach (AM [facility]) CAROLINA HIGHTOWER ([id number]) 1975 F Date Time Provider Department 12/07/23 PRISCILLA RODRIGUEZ [facility] During your visit today, we recorded the following information about you: Priscilla Rodriguez RN 12/07/2023 2:51 PM Signed TRANSITION CARE MANAGEMENT (TCM) FOLLOW-UP NOTE Provider Action/FYI: Spoke to patient. States she was admitted to [facility] Tuesday. (12/04/23) Pt states she was admitted for cirrhosis Apologized to the patient. Telephone outreach ended. Patient identified by name and date of : YES Spoke to patient Discharge Network Status: In-Network Discharge Concerns: Pt is currently admitted at [facility] plan for next outreach: No further follow up needed at this time YANELI Education Ordered -: No Signature Priscilla Rodriguez RN December 07, 2023 Allergies As of Date: 12/07/2023 Noted Allergy Reaction ASPIRIN 06/02/2005 Comments: UNCERTAIN =CHILDHOOD BUPROPION 06/11/2019 14 - Other: See Comments CODEINE 06/02/2005 2 - Rash PREDNISONE 06/19/2019 2 - Rash WELLBUTRIN (BUPROPION HCL) 09/29/2012 14 - Other: See Comments Comments: seizures Date Reviewed: 11/26/2023 Reviewed by: Ledy Orantes Ma - Fully Assessed Prescriptions as of 12/07/2023 - hydrOXYzine HCl (ATARAX) 25 mg tablet Take 1 tablet by mouth every 8 hours as needed. - albuterol HFA (PROAIR HFA) 90 mcg/actuation inhaler Inhale 2 Puffs as instructed every 4 hours as needed. - ferrous sulfate 325 mg (65 mg iron) tablet Take 1 tablet by mouth once daily. - spironolactone (ALDACTONE) 50 mg tablet Take 1 tablet by mouth once daily. - ascorbic acid, vitamin C, (VITAMIN C) 500 mg tablet Take 1 tablet by mouth once daily. - gabapentin (NEURONTIN) 100 mg capsule Take 1 capsule by mouth twice daily for 180 days. - pantoprazole DR (PROTONIX) 40 mg tablet Take 1 tablet by mouth twice daily before meals. Take on empty stomach, 1/2 hr before meal. - ondansetron orally disintegrating (ZOFRAN ODT) 4 mg disintegrating tablet Take 1 tablet by mouth every 6 hours as needed for nausea/vomiting. - lactulose (DUPHALAC, CONSTULOSE) 10 gram/15 mL solution - furosemide (LASIX) 20 mg tablet Take 1 tablet by mouth once daily. Meds Comments as of 05/15/2022: Pt reports she took last dose of doxycycline this morning 05/15/2022 Problem List As Of Date 12/07/2023 Noted Resolved Major depression [F32.9] 04/03/2007 LUMBAGO [M54.50] 02/12/2008 Insomnia [G47.00] 07/02/2009 GERD (gastroesophageal reflux disease) [K21.9] 08/24/2010 Myofascial pain [M79.18] 12/10/2011 Physical deconditioning [R53.81] 12/10/2011 Lumbar strain [S39.012A] 12/10/2011 Tobacco abuse [Z72.0] 04/14/2017 Retroperitoneal bleed [R58] 08/05/2018 Chronic hepatitis C without hepatic coma (HCC) *08/05/2018 Abdominal pain [R10.9] 11/18/2023 Acute respiratory failure with hypoxia and hype*11/19/2023 Community acquired pneumonia of right lung [J18*11/19/2023 Cirrhosis of liver with ascites (HCC) (HCC) [K*11/19/2023 Severe sepsis (HCC) [A41.9, R65.20] 11/19/2023 Chronic anemia [D64.9] 11/19/2023 Thrombocytopenia (HCC) [D69.6] 11/19/2023 Nicotine use disorder, F17.2 [F17.200] 11/20/2023 Encounter Status:Closed by PRISCILLA RODRIGUEZ on 12/07/23 [facility] 11-28-2023 Miscellaneous Notes Pt notified. Melisa Vick Ma Her urine test does show infection, so I have ordered 7 days of Macrobid for her. Dacia Acosta MD Patient calling and asking about urine results. Please review and advise, Vanessa Babcock RN documented in this encounter [facility] 03-02-2024 History of Present illness Narrative Transitional Care Management TCM Eligibility Documentation Program: Transitional Care Management Status: Pending (at least 2 unsuccessful call attempts) Start Date: 11/23/2023 Responsible Staff: Priscilla Rodriguez RN Discharge date: 11/23/2023 (Program start) Date of initial contact: Initial contact Target status: No contact; Completed at least 2 attempts within 2 business days post-discharge Provider Documentation Carolina Hightower is a 48 year old female here today for a follow up from recent hospitalization. I have reviewed the patient's hospital course including discharge summary, discharge medications , follow up needs, and labs (notable for elevated WBC, anemia, thrombocytopenia) with the patient. HPI History reviewed. Pt here today for a 7 day [facility] Hospital follow up. Pt admitted into [facility] on 11/18/23 for abdominal pain and distention. She was discharged on 11/23/23. Pt here today for a follow up. Pt states that she's messed up on medication due to her mental health issues, cirrhosis of the liver and Hep C. She's confused on what to take, when and how. This is why she wanted to make an appt. She's not taken any medication other then her psych meds. States that she doesn't like her Psychiatrist and wants to switch, does like them. Pt states she does not know what she's taking, she was previously on Buspar 10 mg bid, Mirtazapine 15 mg at bedtime and Nadolol 20 mg once daily. Pt was d/c home with Hydroxyzine 25 mg 1 tab po every 8 hours. Pt reports that her stomach is having a lot of issues, this is her worst issue. Reports she feels like she could just vomit. Is prescribed Lactulose 10 gram/15 mL, Zofran 4 mg and Protonix 20 mg bid. States she has not f/u with GI in a while, but has an appt Dr. Porras at the end of this month. Breathing is very difficult. Pt had acute hypoxic hypercapnic respiratory failure. Pt using Albuterol Inhaler, Aldactone 50 mg one daily and states she uses Lasix 20 mg once daily. Pt states that she had a bladder infection in the past month, unsure if resolved. Still having cramps and discomfort. Was treated with Cephalexin. Also tested positive for Flu B 2-3 weeks ago, may have lingering effects of this. FINAL DIAGNOSIS: SBP, community-acquired pneumonia, sepsis, acute hypoxic respiratory failure HOSPITAL COURSE: 48 year old female who presented to an outlying emergency department yesterday, November 17, 2023, for further evaluation of abdominal pain and distention. Patient has known cirrhosis. Recently, she has been evaluated multiple times at [facility] for similar symptoms. Paracentesis has been performed Upon arrival to the emergency department yesterday the patient was found to be hemodynamically stable. Laboratory workup was largely unrevealing. Of important note, an ammonia level was unable to be obtained at that facility. Abdominal imaging was not obtained either. During hospital stay, patient would be evaluated by infectious disease for concern for SBP. Patient would be continued on IV Rocephin for 7 days total treatment during hospitalization. Patient would also episode of acute hypoxic hypercapnic respiratory failure that improved with diuresis and AVAPS therapy. Patient will be started on Aldactone at discharge. Patient also will continue prednisone taper at discharge. Patient will also be started on hydroxyzine for anxiety and iron replacement. Follow up with PCP in one week. Vital signs were stable on discharge. Patient understood and agreed with discharge plan. Plan *Suspected SBP, continue IV Rocephin 1 g daily, patient received azithromycin x 1, ID note was reviewed. Patient still have leukocytosis possibly secondary to taper down steroids, continue prophylactic PPI *Will add Senokot for laxatives *Review blood work showed thrombocytopenia and anemia but leukocytosis well *Check CBC BMP magnesium for tomorrow *I discussed the case with the patient, nursing staff and case management Plan *Discussed the case with ID, at this time we will finish the IV Rocephin tomorrow, patient had paracentesis in [facility] without any significant results, he had paracentesis yesterday results are undetermined. Therefore 1 more day of IV Rocephin day tomorrow and then she finished antibiotics, continuing meantime Taper down steroids and prophylactic PPI *Patient is started having bowel movement *Review blood work results unremarkable except for H&H low but stable current hemoglobin 9.5 white blood cells 12.5 thousand platelets 95,000. *Check CBC BMP magnesium for tomorrow *I discussed the case with the patient, nursing staff and case management PHYSICAL EXAMINATION BP 128/70 (BP Site: Left Arm, BP Position: Sitting, BP Cuff Size: Regular Adult) Pulse 90 Resp 20 Wt 83.4 kg (183 lb 12.8 oz) LMP 11/20/2020 (Approximate) SpO2 94% BMI 33.62 kg/m GENERAL: well appearing, alert, in no acute distress HEART: regular rate and rhythm. No murmur, rubs or gallops. LUNGS: clear to auscultation, no wheezing, rhonchi, or crackles Abdomen: soft, no tenderness EXTREMITIES: no lower extremity edema. No skin discoloration. ASSESSMENT/PLAN: 1. Cirrhosis of liver with ascites, unspecified hepatic cirrhosis type (HCC) (HCC) - ICD9: 571.5, ICD10: K74.60, R18.8 (primary diagnosis) Reviewed medications of aldactone, lasix, lactulose, protonix, zofran 2. Recurrent UTI (urinary tract infection) - ICD9: 599.0, ICD10: N39.0 Check UA today - URINALYSIS WITH MICROSCOPIC, REFLEX CULTURE 3. Chronic hepatitis C without hepatic coma (HCC) - ICD9: 070.54, ICD10: B18.2 Follow with GI 4. Nicotine use disorder, F17.2 - ICD9: 305.1, ICD10: F17.200 - Cessation encouraged. - Physiologic and physical aspects of tobacco addiction as well as strategies for quitting were discussed. - Counseling was given focusing on the harmful effects of this addiction especially given the patient's medical condition(s) which will be worsened because of the chemicals in tobacco. 5. Gastroesophageal reflux disease, unspecified whether esophagitis present - ICD9: 530.81, ICD10: K21.9 6. Major depressive disorder, remission status unspecified, unspecified whether recurrent - ICD9: 296.20, ICD10: F32.9 Follow with Psychiatry Follow up in 1 month Dacia Acosta MD documented in this encounter [facility] 11-26-2023 Note HNO ID: [id number] Author: DACIA ACOSTA MD Service: ? Author Type: Physician Type: Progress Notes Filed: 11/26/2023 11:03 Note Text: Transitional Care Management TCM Eligibility Documentation Program: Transitional Care Management Status: Pending (at least 2 unsuccessful call attempts) Start Date: 11/23/2023 Responsible Staff: Priscilla Rodriguez RN Discharge date: 11/23/2023 (Program start) Date of initial contact: Initial contact Target status: No contact; Completed at least 2 attempts within 2 business days post-discharge Provider Documentation Carolina Hightower is a 48 year old female here today for a follow up from recent hospitalization. I have reviewed the patient's hospital course including discharge summary, discharge medications , follow up needs, and labs (notable for elevated WBC, anemia, thrombocytopenia) with the patient. HPI History reviewed. Pt here today for a 7 day [facility] Hospital follow up. Pt admitted into [facility] on 11/18/23 for abdominal pain and distention. She was discharged on 11/23/23. Pt here today for a follow up. Pt states that she's messed up on medication due to her mental health issues, cirrhosis of the liver and Hep C. She's confused on what to take, when and how. This is why she wanted to make an appt. She's not taken any medication other then her psych meds. States that she doesn't like her Psychiatrist and wants to switch, does like them. Pt states she does not know what she's taking, she was previously on Buspar 10 mg bid, Mirtazapine 15 mg at bedtime and Nadolol 20 mg once daily. Pt was d/c home with Hydroxyzine 25 mg 1 tab po every 8 hours. Pt reports that her stomach is having a lot of issues, this is her worst issue. Reports she feels like she could just vomit. Is prescribed Lactulose 10 gram/15 mL, Zofran 4 mg and Protonix 20 mg bid. States she has not f/u with GI in a while, but has an appt Dr. Porras at the end of this month. Breathing is very difficult. Pt had acute hypoxic hypercapnic respiratory failure. Pt using Albuterol Inhaler, Aldactone 50 mg one daily and states she uses Lasix 20 mg once daily. Pt states that she had a bladder infection in the past month, unsure if resolved. Still having cramps and discomfort. Was treated with Cephalexin. Also tested positive for Flu B 2-3 weeks ago, may have lingering effects of this. FINAL DIAGNOSIS: SBP, community-acquired pneumonia, sepsis, acute hypoxic respiratory failure HOSPITAL COURSE: 48 year old female who presented to an outlying emergency department yesterday, November 17, 2023, for further evaluation of abdominal pain and distention. Patient has known cirrhosis. Recently, she has been evaluated multiple times at [facility] for similar symptoms. Paracentesis has been performed Upon arrival to the emergency department yesterday the patient was found to be hemodynamically stable. Laboratory workup was largely unrevealing. Of important note, an ammonia level was unable to be obtained at that facility. Abdominal imaging was not obtained either. During hospital stay, patient would be evaluated by infectious disease for concern for SBP. Patient would be continued on IV Rocephin for 7 days total treatment during hospitalization. Patient would also episode of acute hypoxic hypercapnic respiratory failure that improved with diuresis and AVAPS therapy. Patient will be started on Aldactone at discharge. Patient also will continue prednisone taper at discharge. Patient will also be started on hydroxyzine for anxiety and iron replacement. Follow up with PCP in one week. Vital signs were stable on discharge. Patient understood and agreed with discharge plan. Plan *Suspected SBP, continue IV Rocephin 1 g daily, patient received azithromycin x 1, ID note was reviewed. Patient still have leukocytosis possibly secondary to taper down steroids, continue prophylactic PPI *Will add Senokot for laxatives *Review blood work showed thrombocytopenia and anemia but leukocytosis well *Check CBC BMP magnesium for tomorrow *I discussed the case with the patient, nursing staff and case management Plan *Discussed the case with ID, at this time we will finish the IV Rocephin tomorrow, patient had paracentesis in [facility] without any significant results, he had paracentesis yesterday results are undetermined. Therefore 1 more day of IV Rocephin day tomorrow and then she finished antibiotics, continuing meantime Taper down steroids and prophylactic PPI *Patient is started having bowel movement *Review blood work results unremarkable except for HANDH low but stable current hemoglobin 9.5 white blood cells 12.5 thousand platelets 95,000. *Check CBC BMP magnesium for tomorrow *I discussed the case with the patient, nursing staff and case management PHYSICAL EXAMINATION BP 128/70 (BP Site: Left Arm, BP Position: Sitting, BP Cuff Size: Regular Adult) (more content not included)... [facility] 11-25-2023 Note HNO ID: [id number] Author: PRISCILLA RODRIGUEZ RN Service: ? Author Type: Registered Nurse Type: Progress Notes Filed: 11/28/2023 16:10 Note Text: [facility] 11-25-2023 History of Present illness Narrative documented in this encounter [facility] 11-25-2023 Note Patient Outreach (AM [facility]) CAROLINA HIGHTOWER ([id number]) 1975 F Date Time Provider Department 11/25/23 PRISCILLA RODRIGUEZ [facility] During your visit today, we recorded the following information about you: Priscilla Rodriguez RN 11/28/2023 4:10 PM Signed Allergies As of Date: 11/25/2023 Noted Allergy Reaction ASPIRIN 06/02/2005 Comments: UNCERTAIN =CHILDHOOD BUPROPION 06/11/2019 14 - Other: See Comments CODEINE 06/02/2005 2 - Rash PREDNISONE 06/19/2019 2 - Rash WELLBUTRIN (BUPROPION HCL) 09/29/2012 14 - Other: See Comments Comments: seizures Date Reviewed: 11/22/2023 Reviewed by: Aurora Tang, RN - Fully Assessed Prescriptions as of 11/28/2023 - nitrofurantoin monohydrate and macrocrystal (MACROBID) 100 mg capsule Take 1 capsule by mouth two times a day with meals for 7 days. - hydrOXYzine HCl (ATARAX) 25 mg tablet Take 1 tablet by mouth every 8 hours as needed. - albuterol HFA (PROAIR HFA) 90 mcg/actuation inhaler Inhale 2 Puffs as instructed every 4 hours as needed. - predniSONE (DELTASONE) 10 mg tablet Take 3 tablets by mouth once daily for 3 days, THEN 2 tablets once daily for 3 days, THEN 1 tablet once daily for 3 days. - ferrous sulfate 325 mg (65 mg iron) tablet Take 1 tablet by mouth once daily. - spironolactone (ALDACTONE) 50 mg tablet Take 1 tablet by mouth once daily. - ascorbic acid, vitamin C, (VITAMIN C) 500 mg tablet Take 1 tablet by mouth once daily. - gabapentin (NEURONTIN) 100 mg capsule Take 1 capsule by mouth twice daily for 180 days. - pantoprazole DR (PROTONIX) 40 mg tablet Take 1 tablet by mouth twice daily before meals. Take on empty stomach, 1/2 hr before meal. - ondansetron orally disintegrating (ZOFRAN ODT) 4 mg disintegrating tablet Take 1 tablet by mouth every 6 hours as needed for nausea/vomiting. - lactulose (DUPHALAC, CONSTULOSE) 10 gram/15 mL solution - furosemide (LASIX) 20 mg tablet Take 1 tablet by mouth once daily. Meds Comments as of 05/15/2022: Pt reports she took last dose of doxycycline this morning 05/15/2022 Problem List As Of Date 11/25/2023 Noted Resolved Major depression [F32.9] 04/03/2007 LUMBAGO [M54.50] 02/12/2008 Insomnia [G47.00] 07/02/2009 GERD (gastroesophageal reflux disease) [K21.9] 08/24/2010 Myofascial pain [M79.18] 12/10/2011 Physical deconditioning [R53.81] 12/10/2011 Lumbar strain [S39.012A] 12/10/2011 Tobacco abuse [Z72.0] 04/14/2017 Retroperitoneal bleed [R58] 08/05/2018 Chronic hepatitis C without hepatic coma (HCC) *08/05/2018 Abdominal pain [R10.9] 11/18/2023 Acute respiratory failure with hypoxia and hype*11/19/2023 Community acquired pneumonia of right lung [J18*11/19/2023 Cirrhosis of liver with ascites (HCC) (HCC) [K*11/19/2023 Severe sepsis (HCC) [A41.9, R65.20] 11/19/2023 Chronic anemia [D64.9] 11/19/2023 Thrombocytopenia (HCC) [D69.6] 11/19/2023 Nicotine use disorder, F17.2 [F17.200] 11/20/2023 Encounter Status:Closed by PRISCILLA RODRIGUEZ on 11/28/23 [facility] 11-24-2023 History of Present illness Narrative TRANSITION CARE MANAGEMENT (TCM) PHARMACY CONTACT Provider Action/FYI: Unable to reach patient after unsuccessful outreach attempt(s). TCM medication reconciliation incomplete at this time. VM full Patient unable to be reached after unsuccessful outreach attempt(s). No further attempts to contact patient will be made. SUMMARY: -Pt discharged from [facility] on 11/23/23. -Medication review not done History of Present Illness: The following content has been copied and pasted from patient's discharge summary. If discharge summary unavailable, After Visit Summary or last pertinent inpatient notes are copied and pasted. HOSPITAL COURSE: 48 year old female who presented to an outlying emergency department yesterday, November 17, 2023, for further evaluation of abdominal pain and distention. Patient has known cirrhosis. Recently, she has been evaluated multiple times at [facility] for similar symptoms. Paracentesis has been performed Upon arrival to the emergency department yesterday the patient was found to be hemodynamically stable. Laboratory workup was largely unrevealing. Of important note, an ammonia level was unable to be obtained at that facility. Abdominal imaging was not obtained either. During hospital stay, patient would be evaluated by infectious disease for concern for SBP. Patient would be continued on IV Rocephin for 7 days total treatment during hospitalization. Patient would also episode of acute hypoxic hypercapnic respiratory failure that improved with diuresis and AVAPS therapy. Patient will be started on Aldactone at discharge. Patient also will continue prednisone taper at discharge. Patient will also be started on hydroxyzine for anxiety and iron replacement. Follow up with PCP in one week. Vital signs were stable on discharge. Patient understood and agreed with discharge plan. ADMISSION PHYSICAL EXAM: General: alert and oriented x3, resting comfortably Neck: supple, no hepatojugular reflux or jugular venous distention, no carotid bruits Lungs: clear to auscultation bilaterally, no wheezing, rales, or rhonchi Cardiac: regular rate and rhythm, normal S1 and S2, no murmurs, gallops, or rubs Abdomen: distended, tender, bowel sounds present Extremities: no edema, cyanosis, or clubbing Skin: no rashes or breakdown Lymphatic: no cervical or supraclavicular lymphadenopathy Neurologic: cranial nerves II-XII are grossly intact Psychiatry: normal affect, no hallucinations, no suicidal ideation ASSESSMENT AND PLAN: Assesment: Suspected SBP Suspected community-acquired pneumonia Sepsis secondary to above resolved Acute respite failure with hypoxia and hypercapnia resolved Acute toxic metabolic encephalopathy resolved Hepatitis C and cirrhosis secondary to hep C Thrombocytopenia secondary to cirrhosis Tobacco abuse Suspected COPD exacerbation improved Obesity BMI 35 History of MRSA Anemia secondary to iron deficiency Plan *Suspected SBP, continue IV Rocephin 1 g daily, patient received azithromycin x 1, ID note was reviewed. Patient still have leukocytosis possibly secondary to taper down steroids, continue prophylactic PPI *Will add Senokot for laxatives *Review blood work showed thrombocytopenia and anemia but leukocytosis well *Check CBC BMP magnesium for tomorrow *I discussed the case with the patient, nursing staff and case management Plan *Discussed the case with ID, at this time we will finish the IV Rocephin tomorrow, patient had paracentesis in [facility] without any significant results, he had paracentesis yesterday results are undetermined. Therefore 1 more day of IV Rocephin day tomorrow and then she finished antibiotics, continuing meantime Taper down steroids and prophylactic PPI *Patient is started having bowel movement *Review blood work results unremarkable except for H&H low but stable current hemoglobin 9.5 white blood cells 12.5 thousand platelets 95,000. *Check CBC BMP magnesium for tomorrow *I discussed the case with the patient, nursing staff and case management PATIENT CONDITION AT DISCHARGE: Stable Medication Reconciliation: Legend: Stopped, New, Changed, Added to list Medication List Medication Directions Comments Action/Plan Discontinued: 11/23/2023 3:41 PM albuterol HFA (PROAIR HFA) 90 mcg/actuation inhaler Inhale 2 Puffs as instructed every 4 hours as needed. itravel #30 - [place] ascorbic acid, vitamin C, (VITAMIN C) 500 mg tablet Take 1 tablet by mouth once daily. itravel #30 - Julio Cesar Discontinued: 11/17/2023 7:36 PM NO RECENT DISPENSES Discontinued: 11/17/2023 7:36 PM NO RECENT DISPENSES Discontinued: 11/17/2023 7:36 PM NO RECENT DISPENSES Discontinued: 11/17/2023 7:36 PM NO RECENT DISPENSES ferrous sulfate 325 mg (65 mg iron) tablet Take 1 tablet by mouth once daily. itravel #30 - Julio Cesar furosemide (LASIX) 20 mg tablet Take 1 tablet by mouth once daily. gabapentin (NEURONTIN) 100 mg capsule Take 1 capsule by mouth twice daily for 180 days. hydrOXYzine HCl (ATARAX) 25 mg tablet Take 1 tablet by mouth every 8 hours as needed. itravel #30 - Julio Cesar Per AVS Patient will also be started on hydroxyzine for anxiety lactulose (DUPHALAC, CONSTULOSE) 10 gram/15 mL solution None Entered Discontinued: 11/17/2023 7:37 PM NO RECENT DISPENSES ondansetron orally disintegrating (ZOFRAN ODT) 4 mg disintegrating tablet Take 1 tablet by mouth every 6 hours as needed for nausea/vomiting. Discontinued: 11/17/2023 7:[address] (PROTONIX) 40 mg tablet Take 1 tablet by mouth twice daily before meals. Take on empty stomach, 1/2 hr before meal. predniSONE (DELTASONE) 10 mg tablet Take 3 tablets by mouth once daily for 3 days, THEN 2 tablets once daily for 3 days, THEN 1 tablet once daily for 3 days. itravel #30 - [place] #18 tabs spironolactone (ALDACTONE) 50 mg tablet Take 1 tablet by mouth once daily. itravel #30 - Julio Cesar Potassium Date Value Ref Range Status 11/23/2023 4.2 3.5 - 5.1 mmol/L Final Discontinued: 11/17/2023 7:37 PM NO RECENT DISPENSES Discontinued: 11/17/2023 7:37 PM NO RECENT DISPENSES Preferred pharmacy: [facility] [place] [address] - [address] [phone] [address] [address] [facility] - [address] [place] [id number] - [address] - [phone] [address] [place] [address] Estimated Creatinine Clearance: 85.8 mL/min (based on SCr of 0.78 mg/dL). Estimated Glomerular Filtration Rate (mL/min/1.73m ) Date Value 11/23/2023 93 eGFR- (no units) Date Value 06/24/2021 >60 Additional follow up: Next 5 Appointments None Interventions Made: None Pharmacist Recommendations Made None Care Coordination: None at this time Time spent on patient: 15-30 minutes Shirlene Telles RPh November 24, 2023 9:21 AM documented in this encounter [facility] 11-24-2023 Note HNO ID: [id number] Author: SHIRLENE TELLES RPh Service: ? Author Type: Pharmacist Type: Progress Notes Filed: 11/24/2023 15:30 Note Text: TRANSITION CARE MANAGEMENT (TCM) PHARMACY CONTACT Provider Action/FYI: Unable to reach patient after unsuccessful outreach attempt(s). TCM medication reconciliation incomplete at this time. VM full Patient unable to be reached after unsuccessful outreach attempt(s). No further attempts to contact patient will be made. SUMMARY: -Pt discharged from [facility] on 11/23/23. -Medication review not done History of Present Illness: The following content has been copied and pasted from patient's discharge summary. If discharge summary unavailable, After Visit Summary or last pertinent inpatient notes are copied and pasted. HOSPITAL COURSE: 48 year old female who [facility], November 17, 2023, for further evaluation of abdominal pain and distention. Patient has known cirrhosis. Recently, she has been evaluated multiple times at [facility] for similar symptoms. Paracentesis has been performed Upon arrival to the emergency department yesterday the patient was found to be hemodynamically stable. Laboratory workup was largely unrevealing. Of important note, an ammonia level was unable to be obtained at that facility. Abdominal imaging was not obtained either. During hospital stay, patient would be evaluated by infectious disease for concern for SBP. Patient would be continued on IV Rocephin for 7 days total treatment during hospitalization. Patient would also episode of acute hypoxic hypercapnic respiratory failure that improved with diuresis and AVAPS therapy. Patient will be started on Aldactone at discharge. Patient also will continue prednisone taper at discharge. Patient will also be started on hydroxyzine for anxiety and iron replacement. Follow up with PCP in one week. Vital signs were stable on discharge. Patient understood and agreed with discharge plan. ADMISSION PHYSICAL EXAM: General: alert and oriented x3, resting comfortably Neck: supple, no hepatojugular reflux or jugular venous distention, no carotid bruits Lungs: clear to auscultation bilaterally, no wheezing, rales, or rhonchi Cardiac: regular rate and rhythm, normal S1 and S2, no murmurs, gallops, or rubs Abdomen: distended, tender, bowel sounds present Extremities: no edema, cyanosis, or clubbing Skin: no rashes or breakdown Lymphatic: no cervical or supraclavicular lymphadenopathy Neurologic: cranial nerves II-XII are grossly intact Psychiatry: normal affect, no hallucinations, no suicidal ideation ASSESSMENT AND PLAN: Assesment: Suspected SBP Suspected community-acquired pneumonia Sepsis secondary to above resolved Acute respite failure with hypoxia and hypercapnia resolved Acute toxic metabolic encephalopathy resolved Hepatitis C and cirrhosis secondary to hep C Thrombocytopenia secondary to cirrhosis Tobacco abuse Suspected COPD exacerbation improved Obesity BMI 35 History of MRSA Anemia secondary to iron deficiency Plan *Suspected SBP, continue IV Rocephin 1 g daily, patient received azithromycin x 1, ID note was reviewed. Patient still have leukocytosis possibly secondary to taper down steroids, continue prophylactic PPI *Will add Senokot for laxatives *Review blood work showed thrombocytopenia and anemia but leukocytosis well *Check CBC BMP magnesium for tomorrow *I discussed the case with the patient, nursing staff and case management Plan *Discussed the case with ID, at this time we will finish the IV Rocephin tomorrow, patient had paracentesis in [facility] without any significant results, he had paracentesis yesterday results are undetermined. Therefore 1 more day of IV Rocephin day tomorrow and then she finished antibiotics, continuing meantime Taper down steroids and prophylactic PPI *Patient is started having bowel movement *Review blood work results unremarkable except for HANDH low but stable current hemoglobin 9.5 white blood cells 12.5 thousand platelets 95,000. *Check CBC BMP magnesium for tomorrow *I discussed the case with the patient, nursing staff and case management PATIENT CONDITION AT DISCHARGE: Stable Medication Reconciliation: Legend: Stopped, New, Changed, Added to list Medication List Medication Directions Comments Action/Plan Discontinued: 11/23/2023 3:41 PM albuterol HFA (PROAIR HFA) 90 mcg/actuation inhaler Inhale 2 Puffs as instructed every 4 hours as needed. itravel #30 - [place] ascorbic acid, vitamin C, (VITAMIN C) 500 mg tablet Take 1 tablet by mouth once daily. [employer] #30 - Julio Cesar Discontinued: 11/17/2023 7:36 PM NO RECENT DISPENSES Discontinued: 11/17/2023 7:36 PM NO RECENT DISPENSES Discontinued: 11/17/2023 7:36 PM NO RECENT DISPENSES Discontinued: 11/17/2023 7 (more content not included)... [facility] 11-24-2023 Note Patient Outreach ( RXRF) CAROLINA HIGHTOWER ([id number]) 1975 F Date Time Provider Department 11/24/23 [facility] During your visit today, we recorded the following information about you: Shirlene Telles asha 11/24/2023 3:30 PM Signed TRANSITION CARE MANAGEMENT (TCM) PHARMACY CONTACT Provider Action/FYI: Unable to reach patient after unsuccessful outreach attempt(s). TCM medication reconciliation incomplete at this time. VM full Patient unable to be reached after unsuccessful outreach attempt(s). No further attempts to contact patient will be made. SUMMARY: -Pt discharged from [facility] on 11/23/23. -Medication review not done History of Present Illness: The following content has been copied and pasted from patient's discharge summary. If discharge summary unavailable, After Visit Summary or last pertinent inpatient notes are copied and pasted. HOSPITAL COURSE: 48 year old female who presented [facility] emergency department yesterday, November 17, 2023, for further evaluation of abdominal pain and distention. Patient has known cirrhosis. Recently, she has been evaluated multiple times at [facility] for similar symptoms. Paracentesis has been performed Upon arrival to the emergency department yesterday the patient was found to be hemodynamically stable. Laboratory workup was largely unrevealing. Of important note, an ammonia level was unable to be obtained at that facility. Abdominal imaging was not obtained either. During hospital stay, patient would be evaluated by infectious disease for concern for SBP. Patient would be continued on IV Rocephin for 7 days total treatment during hospitalization. Patient would also episode of acute hypoxic hypercapnic respiratory failure that improved with diuresis and AVAPS therapy. Patient will be started on Aldactone at discharge. Patient also will continue prednisone taper at discharge. Patient will also be started on hydroxyzine for anxiety and iron replacement. Follow up with PCP in one week. Vital signs were stable on discharge. Patient understood and agreed with discharge plan. ADMISSION PHYSICAL EXAM: General: alert and oriented x3, resting comfortably Neck: supple, no hepatojugular reflux or jugular venous distention, no carotid bruits Lungs: clear to auscultation bilaterally, no wheezing, rales, or rhonchi Cardiac: regular rate and rhythm, normal S1 and S2, no murmurs, gallops, or rubs Abdomen: distended, tender, bowel sounds present Extremities: no edema, cyanosis, or clubbing Skin: no rashes or breakdown Lymphatic: no cervical or supraclavicular lymphadenopathy Neurologic: cranial nerves II-XII are grossly intact Psychiatry: normal affect, no hallucinations, no suicidal ideation ASSESSMENT AND PLAN: Assesment: Suspected SBP Suspected community-acquired pneumonia Sepsis secondary to above resolved Acute respite failure with hypoxia and hypercapnia resolved Acute toxic metabolic encephalopathy resolved Hepatitis C and cirrhosis secondary to hep C Thrombocytopenia secondary to cirrhosis Tobacco abuse Suspected COPD exacerbation improved Obesity BMI 35 History of MRSA Anemia secondary to iron deficiency Plan *Suspected SBP, continue IV Rocephin 1 g daily, patient received azithromycin x 1, ID note was reviewed. Patient still have leukocytosis possibly secondary to taper down steroids, continue prophylactic PPI *Will add Senokot for laxatives *Review blood work showed thrombocytopenia and anemia but leukocytosis well *Check CBC BMP magnesium for tomorrow *I discussed the case with the patient, nursing staff and case management Plan *Discussed the case with ID, at this time we will finish the IV Rocephin tomorrow, patient had paracentesis in [facility] without any significant results, he had paracentesis yesterday results are undetermined. Therefore 1 more day of IV Rocephin day tomorrow and then she finished antibiotics, continuing meantime Taper down steroids and prophylactic PPI *Patient is started having bowel movement *Review blood work results unremarkable except for HANDH low but stable current hemoglobin 9.5 white blood cells 12.5 thousand platelets 95,000. *Check CBC BMP magnesium for tomorrow *I discussed the case with the patient, nursing staff and case management PATIENT CONDITION AT DISCHARGE: Stable Medication Reconciliation: Legend: Stopped, New, Changed, Added to list Medication List Medication Directions Comments Action/Plan Discontinued: 11/23/2023 3:41 PM albuterol HFA (PROAIR HFA) 90 mcg/actuation inhaler Inhale 2 Puffs as instructed every 4 hours as needed. itravel #30 - [place] ascorbic acid, vitamin C, (VITAMIN C) 500 mg tablet Take 1 tablet by mouth once daily. itravel #30 - Julio Cesar Di (more content not included)... [facility] 11-23-2023 Note HNO ID: [id number] Author: AR PIERCE RN Service: Care Management Author Type: Registered Nurse Type: Care Mgt Progress Note Filed: 11/23/2023 14:13 Note Text: CARE MANAGEMENT DISCHARGE NOTE SERVICE DATE: November 23, 2023 SERVICE TIME: 2:11 PM Admission Date: 11/18/2023 LOS: 5 days Discharge Arrangement Services Arranged Provider Name: Dr. Acosta Caregiver Assessment Transportation Arrangements [employer] transportation to home Handoff Communication: Additional Information: Plan to discharge to home today. Does not have any family that can pick her up, so will go home via Uber. Was given a list of mental health facilities in the [place] area. Denies any other needs. Case closed. SIGNATURE: Ar Pierce RN PATIENT NAME: Carolina Hightower DATE: November 23, 2023 TIME: 2:11 PM CONTACT #: [phone] [facility] 11-22-2023 Note HNO ID: [id number] Author: AMOR HERNANDEZ MD Service: Hospital Medicine Author Type: Physician Type: Progress Notes Filed: 11/22/2023 14:07 Note Text: INPATIENT PROGRESS NOTE SERVICE DATE: 11/22/2023 PRIMARY SERVICE: Hospital Medicine CHIEF COMPLAINT: Weakness abdominal discomfort Subjective Patient transferred from ICU after being admitted for hypotension and rapid response team was called on her, patient medically optimized and she was transferred to the floor, patient had ascites from hep C and cirrhosis, suspected sepsis from SBP, patient had paracentesis at [facility] ER several days ago, today abdominal pain is improving, feels more comfortable, no fever or chills, last bowel movement this morning with small amount, Current Facility-Administered Medications Medication Dose Route Frequency NaCl 0.9% iv flush bag 20 mL INTRAVENOUS PRN iv contrast (radiology procedure) INTRAVENOUS DIRECTED PRN cefTRIAXone 2 g in D5W 100 mL Vial-Bag (ROCEPHIN) 2 g INTRAVENOUS DAILY (1 PM) furosemide 20 mg tab(s) (LASIX) 20 mg ORAL DAILY spironolactone 50 mg tab(s) (ALDACTONE) 50 mg ORAL DAILY pantoprazole DR 40 mg tab(s) (PROTONIX) 40 mg ORAL BID AC (0600/1600) acetaminophen 650 mg tab(s) (TYLENOL) 650 mg ORAL q 4 H PRN gabapentin 300 mg cap(s) (NEURONTIN) 300 mg ORAL q 12 H oxyCODONE IR 5 mg tab(s) (ROXICODONE) 5 mg ORAL q 4 H PRN hydrOXYzine HCl 25 mg tab(s) (ATARAX) 25 mg ORAL q 8 H PRN ipratropium-albuterol 3 mL nebulizer solution (DUONEB) 3 mL INHALATION q 4 H PRN ipratropium-albuterol 3 mL nebulizer solution (DUONEB) 3 mL INHALATION QID [START ON 11/23/2023] predniSONE (DELTASONE) tab(s) 30 mg 30 mg ORAL DAILY Followed by [START ON 11/26/2023] predniSONE 20 mg tab(s) (DELTASONE) 20 mg ORAL DAILY Followed by [START ON 11/29/2023] predniSONE 10 mg tab(s) (DELTASONE) 10 mg ORAL DAILY ferrous sulfate 325 mg tab(s) 325 mg ORAL DAILY ascorbic acid (vitamin C) 500 mg tab(s) (VITAMIN C) 500 mg ORAL DAILY senna-docusate 8.6-50 mg 1 tablet (SENNA-S) 1 tablet ORAL BID LORazepam 1 mg injection (ATIVAN) 1 mg INTRAVENOUS q 8 H PRN Objective PHYSICAL EXAM: BP 117/80 Pulse 78 Temp (Src) 98 (Oral) Resp 16 Ht 5' 2 (1.58m) Wt 191 lb 4.8 oz (86.8kg) SpO2 93% LMP 11/20/2020 BMI 34.98 kg/(m2). O2 Therapy: Room Air General: Patient is alert and is in no acute respiratory distress. Lungs: Clear to auscultation, no wheezing, rales, or rhonchi. Cardiac: S1-S2 within normal limits Abdomen: Soft, generalized tenderness, no signs of acute abdomen, mildly distended Extremities: No cyanosis Neurologic: Cranial nerves from II-XII intact grossly. Psych normal affect. DATA: LABORATORY TESTS: CBC: Recent Labs 11/22/2344911/21/2343911/20/2335611/19/2334811/17/232007 WBC 12.59* 17.88* 15.65* < > 11.50* HB 9.5* 8.2* 8.3* < > 10.3* PLT 95* 91* 78* < > 112* MCV 77.7* 76.6* 76.1* < > 77.7* NEUTP 76.0 88.0 88.0 -- 64.9 ABSNEUT 9.57* 16.09* 14.24* -- 7.47 LYMPHP 16.0 4.0 2.0 -- 21.1 EODINP -- -- -- -- 0.8 < > = values in this interval not displayed. CHEM: Recent Labs 11/22/2344911/21/2343911/20/23356 NA 136 137 133* K 4.4 4.6 4.9 CA 9.7 9.4 8.9 MG 1.9 2.1 1.9 P -- -- 2.5 ANION 3* 4* 3* CHLOR 105 106 102 CO2 28 27 28 GLUC 92 133* 141* BUN 18 21 20 CREAT 0.81 0.73 0.95 HEPATIC: Recent Labs 11/20/23 0357 11/19/23 0349 11/17/232007 ALT 32 31 29 AST 76* 65* 78* TBILI 2.2* 2.2* 3.0* ALKPHOS 130* 158* 245* ALB 2.4* 1.9* 2.6* TPROT 7.0 6.8 7.8 LIPASE -- -- 23 URINALYSIS: Recent Labs 11/17/232013 SPGR >=1.030* UBACTERIA Few* LEUKEST Negative UWBC 0-5 /HPF URBC 6-10 /HPF* UHB 1+* UPROT 1+* UGLUC Negative UKET Negative COAG: Recent Labs 11/20/23356 APTT 45.7* INR 2.3* CARDIAC: Recent Labs 11/17/232007 PBNP 83 DATA: Diagnostic tests reviewed for today's visit: Most recent labs and imaging results. Most recent EKG Urine Culture: Positive Micro-30 Days No results found for the last 720 hours. Blood Culture: Positive Micro-30 Days No results found for the last 720 hours. Medication and Non-Pharmacologic VTE Prophylaxis/Anticoagulants 11/18/231744 vte current anticoag therapy ([place], [place]) 11/18/231744 activity - mobilize patient ([place], [place]) VTE Prophylaxis: VTE prophylaxis appropriate Assesment: Suspected SBP Suspected community-acquired pneumonia Sepsis secondary to above resolved Acute respite failure with hypoxia and hypercapnia resolved Acute toxic metabolic encephalopathy resolved Hepatitis C and cirrhosis secondary to hep C Thrombocytopenia secondary to cirrhosis Tobacco abuse Suspected COPD exacerbation improved Obesity BMI 35 History of MRSA Anemia secondary to iron deficiency Plan *Suspected SBP, continue IV Rocephin 1 g daily, patient received azithromycin x 1, ID note was reviewed. Patient sti (more content not included)... [facility] 11-22-2023 Note HNO ID: [id number] Author: AR PIERCE RN Service: Care Management Author Type: Registered Nurse Type: Care Mgt Initial Assessment Filed: 11/22/2023 07:34 Note Text: CARE MANAGEMENT: ASSESSMENT AND DISCHARGE PLAN SERVICE DATE: November 22, 2023 SERVICE TIME: 7:18 AM PCP: Dacia Acosta MD, saw 6 months ago Primary Contact: Extended Emergency Contact Information Primary Emergency Contact: Reyna Morrell Relation: Mother Secondary Emergency Contact: Osmin Lorenzo Mobile Relation: Significant other Admission Status: Inpatient Insurance Provider: [employer] Discharge Planning requested by: Patient Potential Transition Plans Home Advance Directives Current Advance Directive: None Residential Subcontractor Attempted to Assist with AD Completion: Yes Action: Patient Unwilling Current Living Arrangements and Support Lives with: Spouse/significant other Type of Residence: Private Residence (House) Does the patient have to climb stairs at home?: Yes;stairs outside the home;stairs within the home Support: Spouse/significant other How do you manage to accomplish the following: Independent: Ambulation;Bathe/Shower;Dress;Joycelyn ls/Meal Prep;Going to the bathroom;Medication Management Needs Assistance: Transportation to appointments/community Current Services/Equipment Current Post-Acute Service(s): None Discharge Planning Patient Goal(s): Be able to go home, General wellness [place] Explained: [place] Given: No Reason Not Given: No placements necessary Are you interested in bedside delivery of your medications? No Discharge Planning Participant(s): Patient Patient/Family Comments: Caregiver Assessment: Caregiver is ready, willing and able to meet the patient's needs as recommended by the inter-professional team: No Caregiver needed Transport at Discharge: Transportation Arrangements: To Be Determined Needs Prior to Discharge: Post-Acute Discharge Plan: CHART REVIEWED: Paracentesis, IV antibiotics. Admission for:evaluation of abdominal pain and distention.Was a transfer from [facility], went to the ICU after a rapid response. Discharge plan to return to home, lives with significant other. They rent a room off of some friends, has bathroom and kitchen privileges. Neither of them drive, usually walks, uses insurance for doctor visits, or friends transport. She quit taking her medications 6 months ago along with mental health services at [facility]. She would like information on services in [facility] for mental health. She states she can use her insurance for the appointments. Will give her the information. She is unsure she will need transportation to home. Will continue to follow. SIGNATURE: Ar Pierce RN PATIENT NAME: Carolina Hightower DATE: November 22, 2023 TIME: 7:18 AM CONTACT #: [phone] [facility] 11-21-2023 Note HNO ID: [id number] Author: AMOR HERNANDEZ MD Service: Hospital Medicine Author Type: Physician Type: Progress Notes Filed: 11/21/2023 14:40 Note Text: INPATIENT PROGRESS NOTE SERVICE DATE: 11/21/2023 PRIMARY SERVICE: Hospital Medicine CHIEF COMPLAINT: Weakness abdominal discomfort Subjective Patient transferred from ICU after being admitted for hypotension and rapid response team was called on her, patient medically optimized and she was transferred to the floor, patient had ascites from hep C and cirrhosis, suspected sepsis from SBP, patient had paracentesis at [facility] ER several days ago, today complaining of abdominal discomfort, no fever or chills, last bowel movement 2 days ago. Current Facility-Administered Medications Medication Dose Route Frequency NaCl 0.9% iv flush bag 20 mL INTRAVENOUS PRN iv contrast (radiology procedure) INTRAVENOUS DIRECTED PRN cefTRIAXone 2 g in D5W 100 mL Vial-Bag (ROCEPHIN) 2 g INTRAVENOUS DAILY (1 PM) furosemide 20 mg tab(s) (LASIX) 20 mg ORAL DAILY spironolactone 50 mg tab(s) (ALDACTONE) 50 mg ORAL DAILY pantoprazole DR 40 mg tab(s) (PROTONIX) 40 mg ORAL BID AC (0600/1600) acetaminophen 650 mg tab(s) (TYLENOL) 650 mg ORAL q 4 H PRN gabapentin 300 mg cap(s) (NEURONTIN) 300 mg ORAL q 12 H oxyCODONE IR 5 mg tab(s) (ROXICODONE) 5 mg ORAL q 4 H PRN hydrOXYzine HCl 25 mg tab(s) (ATARAX) 25 mg ORAL q 8 H PRN ipratropium-albuterol 3 mL nebulizer solution (DUONEB) 3 mL INHALATION q 4 H PRN ipratropium-albuterol 3 mL nebulizer solution (DUONEB) 3 mL INHALATION QID predniSONE 40 mg tab(s) (DELTASONE) 40 mg ORAL DAILY Followed by [START ON 11/23/2023] predniSONE (DELTASONE) tab(s) 30 mg 30 mg ORAL DAILY Followed by [START ON 11/26/2023] predniSONE 20 mg tab(s) (DELTASONE) 20 mg ORAL DAILY Followed by [START ON 11/29/2023] predniSONE 10 mg tab(s) (DELTASONE) 10 mg ORAL DAILY ferrous sulfate 325 mg tab(s) 325 mg ORAL DAILY ascorbic acid (vitamin C) 500 mg tab(s) (VITAMIN C) 500 mg ORAL DAILY senna-docusate 8.6-50 mg 1 tablet (SENNA-S) 1 tablet ORAL BID Objective PHYSICAL EXAM: BP 118/59 Pulse 69 Temp (Src) 98.7 (Axillary) Resp 16 Ht 5' 2 (1.58m) Wt 191 lb 11.2 oz (87.0kg) SpO2 100% LMP 11/20/2020 BMI 35.05 kg/(m2). O2 Therapy: Room Air General: Patient is alert and is in no acute respiratory distress. Lungs: Clear to auscultation, no wheezing, rales, or rhonchi. Cardiac: S1-S2 within normal limits Abdomen: Soft, generalized tenderness, no signs of acute abdomen, mildly distended Extremities: No cyanosis Neurologic: Cranial nerves from II-XII intact grossly. Psych normal affect. DATA: Recent Labs 11/19/23 0615 PCGLUCOSE 103* LABORATORY TESTS: CBC: Recent Labs 11/21/2343911/20/2335611/19/2334811/17/232007 WBC 17.88* 15.65* 13.45* 11.50* HB 8.2* 8.3* 9.4* 10.3* PLT 91* 78* 80* 112* MCV 76.6* 76.1* 76.1* 77.7* NEUTP 88.0 88.0 -- 64.9 ABSNEUT 16.09* 14.24* -- 7.47 LYMPHP 4.0 2.0 -- 21.1 EODINP -- -- -- 0.8 CHEM: Recent Labs 11/21/2343911/20/2335611/19/23348 NA 137 133* 137 K 4.6 4.9 4.1 CA 9.4 8.9 8.5 MG 2.1 1.9 1.5* P -- 2.5 -- ANION 4* 3* 3* CHLOR 106 102 106 CO2 27 28 28 GLUC 133* 141* 89 BUN 21 20 11 CREAT 0.73 0.95 0.68 HEPATIC: Recent Labs 11/20/23 0357 11/19/23 0349 11/17/232007 ALT 32 31 29 AST 76* 65* 78* TBILI 2.2* 2.2* 3.0* ALKPHOS 130* 158* 245* ALB 2.4* 1.9* 2.6* TPROT 7.0 6.8 7.8 LIPASE -- -- 23 URINALYSIS: Recent Labs 11/17/232013 SPGR >=1.030* UBACTERIA Few* LEUKEST Negative UWBC 0-5 /HPF URBC 6-10 /HPF* UHB 1+* UPROT 1+* UGLUC Negative UKET Negative COAG: Recent Labs 11/20/23356 APTT 45.7* INR 2.3* CARDIAC: Recent Labs 11/17/232007 PBNP 83 DATA: Diagnostic tests reviewed for today's visit: Most recent labs and imaging results. Most recent EKG Urine Culture: Positive Micro-30 Days No results found for the last 720 hours. Blood Culture: Positive Micro-30 Days No results found for the last 720 hours. Medication and Non-Pharmacologic VTE Prophylaxis/Anticoagulants 11/18/231744 vte current anticoag therapy ([place], [place]) 11/18/231744 activity - mobilize patient ([place]) VTE Prophylaxis: VTE prophylaxis appropriate Assesment: Suspected SBP Suspected community-acquired pneumonia Sepsis secondary to above resolved Acute respite failure with hypoxia and hypercapnia resolved Acute toxic metabolic encephalopathy resolved Hepatitis C and cirrhosis secondary to hep C Thrombocytopenia secondary to cirrhosis Tobacco abuse Suspected COPD exacerbation improved Obesity BMI 35 History of MRSA Anemia secondary to iron deficiency Plan *Suspected SBP, continue IV Rocephin 1 g daily, patient received azithromycin x 1, ID note was reviewed. Patient still have leukocytosis possibly secondary to taper down steroids, contin (more content not included)... [facility] 11-20-2023 Note HNO ID: [id number] Author: MARIAH POWELL MD Service: Critical Care Author Type: Physician Type: Progress Notes Filed: 11/20/2023 15:28 Note Text: [facility] STAFF PHYSICIAN NOTE OF PERSONAL INVOLVEMENT IN CARE I have reviewed the progress note obtained and documented by the CAMILLE. I have personally performed a face to face assessment of the patient and performed the substantive portion of the visit which includes the medical decision making. I have discussed the case and management of the patient's care. The following comments revise or confirm relevant lopez components of the note. IMPRESSION/PLAN: ASSESSMENT: Acute respiratory failure with hypoxia and hypercapnia Toxic metabolic encephalopathy==> resolved Severe sepsis Likely COPD with exacerbation CAP Cirrhosis with ascites ?SBP Chronic anemia Thrombocytopenia Hx of hep C Hx of tobacco abuse PLAN: Currently oxygenating well on nasal cannula (2). Room air at baseline. Maintain SpO2 greater than 90% Continue NIV nightly while in hospital. Recommend outpatient PFTs Hemodynamics remain stable. Maintain MAP greater than 65 mmHg. Albumin x 3 doses. Continue home Lasix add spironolactone. Scheduled DuoNebs. Stop Nebusal no sputum production. Start prednisone taper Continue Rocephin (day #2) and stop Zithromycin. Influenza A/B/RSV and SARS-CoV-2 negative. Urine antigens negative. Blood cultures pending. Paracentesis planned for 11/21. Ascitic studies ordered. Procalcitonin 5, lactic acid 5.1> 2.0. De-escalate as able with cultures Placed on sepsis pathway during rapid response. Patient met criteria given lactic acid, RR and white count however there is a concern for fluid overload given third spacing in the setting of cirrhosis/ascites therefore IV fluids were not given and patient was given Lasix. I agree patient does not need further fluid resuscitation at this time. Elevated lactate likely due to underlying cirrhosis and poor clearance. No active signs of bleeding. Check iron panel. Transfuse for hemoglobin less than 7 and platelets less than 10,000. No treatment for hep C, will check quant. Recommend OP follow-up for potential treatment given cirrhosis. GI/DVT prophylaxis Advance diet as tolerated CODE STATUS: Full code Patient stable for transfer out of ICU. Pulmonary/critical care will sign off. Please reconsult if any new critical care needs. SIGNATURE: Mariah Powell MD [facility] DATE of SERVICE: 11/20/2023 [facility] 11-20-2023 Note HNO ID: [id number] Author: MARIAH TRAVIS APRN.LIFE AGENT Service: Critical Care Author Type: Nurse Practitioner Type: Progress Notes Filed: 11/20/2023 10:02 Note Text: PULMONARY/CRITICAL CARE INTENSIVE MEDICAL/SURGICAL CARE UNIT PROGRESS NOTE Patient Name: Carolina Hightower Account #: Data Unavailable Admission Date: 11/18/2023 Date of Evaluation: 11/20/2023 Time of Evaluation: 9:44 AM SUBJECTIVE Transferred from [place] for paracentesis. Treated for COPD exacerbation with hypercapnia. Improved today, mentation improved. Complaining of headache. Plan for paracentesis tomorrow. Tolerating a diet, no nausea vomiting diarrhea. VITALS 11/20/23 0700 11/20/23 0800 11/20/23 0827 11/20/23 0900 BP: 113/55 120/70 120/70 128/76 Pulse: 66 82 66 (!) 59 Resp: 13 Temp: 36.6 ?C (97.9 ?F) TempSrc: Oral SpO2: 99% 100% 92% Weight: Height: PHYSICAL EXAM Gen: Alert AND Oriented x 3, No acute distress HEENT: Normocephalic, Atraumatic, Pupils Equally Reactive to light and accomodation, moist mucous membranes, Lungs: Equal chest rise, coarse bilaterally left greater than right, light expiratory wheezes. Heart: Regular Rate and Rhythm, Normal S1 and S2, no murmurs Abd: Distended, soft, positive fluid wave, bowel sounds present Ext: No edema, +2 pulses Neuro: CN II - XII grossly intact, no sensory/motor deficits noted 24 hour Intake AND Output: Intake/Output Summary (Last 24 hours) at 11/20/2023 0945 Last data filed at 11/20/2023 0603 Gross per 24 hour Intake 300 ml Output 1000 ml Net -700 ml INPATIENT MEDICATIONS : Current Facility-Administered Medications Medication Dose Route Frequency NaCl 0.9% iv flush bag 20 mL INTRAVENOUS PRN iv contrast (radiology procedure) INTRAVENOUS DIRECTED PRN cefTRIAXone 2 g in D5W 100 mL Vial-Bag (ROCEPHIN) 2 g INTRAVENOUS DAILY (1 PM) furosemide 20 mg tab(s) (LASIX) 20 mg ORAL DAILY spironolactone 50 mg tab(s) (ALDACTONE) 50 mg ORAL DAILY pantoprazole DR 40 mg tab(s) (PROTONIX) 40 mg ORAL BID AC (0600/1600) acetaminophen 650 mg tab(s) (TYLENOL) 650 mg ORAL q 4 H PRN midodrine 10 mg tab(s) (PROAMATINE) 10 mg ORAL q 8 H gabapentin 300 mg cap(s) (NEURONTIN) 300 mg ORAL q 12 H oxyCODONE IR 5 mg tab(s) (ROXICODONE) 5 mg ORAL q 4 H PRN hydrOXYzine HCl 25 mg tab(s) (ATARAX) 25 mg ORAL q 8 H PRN ipratropium-albuterol 3 mL nebulizer solution (DUONEB) 3 mL INHALATION q 4 H PRN ipratropium-albuterol 3 mL nebulizer solution (DUONEB) 3 mL INHALATION QID predniSONE 40 mg tab(s) (DELTASONE) 40 mg ORAL DAILY Followed by [START ON 11/23/2023] predniSONE (DELTASONE) tab(s) 30 mg 30 mg ORAL DAILY Followed by [START ON 11/26/2023] predniSONE 20 mg tab(s) (DELTASONE) 20 mg ORAL DAILY Followed by [START ON 11/29/2023] predniSONE 10 mg tab(s) (DELTASONE) 10 mg ORAL DAILY HOME MEDICATIONS: gabapentin (NEURONTIN) 100 mg capsuleTake 1 capsule by mouth twice daily for 180 days.Disp: 60 capsuleRfl: 5 furosemide (LASIX) 20 mg tabletTake 1 tablet by mouth once daily.Disp: 30 tabletRfl: [address] (PROTONIX) 40 mg tabletTake 1 tablet by mouth twice daily before meals. Take on empty stomach, 1/2 hr before meal.Disp: 60 tabletRfl: 11 ondansetron orally disintegrating (ZOFRAN ODT) 4 mg disintegrating tabletTake 1 tablet by mouth every 6 hours as needed for nausea/vomiting.Disp: 20 tabletRfl: 5 lactulose (DUPHALAC, CONSTULOSE) 10 gram/15 mL solutionDisp: Rfl: albuterol HFA (PROAIR HFA) 90 mcg/actuation inhalerInhale 2 Puffs as instructed every 4 hours as needed.Disp: 18 gRfl: 0 (Patient not taking: Reported on 11/01/2023) LABORATORY TESTS: CBC: Recent Labs 11/20/23 0357 11/19/23 0349 11/17/232007 WBC 15.65* 13.45* 11.50* HB 8.3* 9.4* 10.3* HCT 26.5* 30.3* 33.8* PLT 78* 80* 112* MCV 76.1* 76.1* 77.7* RDWCV 24.6* 24.2* 23.6* NEUTP 88.0 -- 64.9 ABSNEUT 14.24* -- 7.47 LYMPHP 2.0 -- 21.1 MONOP 6.0 -- 12.2 EODINP -- -- 0.8 COAG: Recent Labs 11/20/23356 APTT 45.7* INR 2.3* BMP: Recent Labs 11/20/2335611/19/2334811/17/232007 GLUC 141* 89 121* NA 133* 137 134* K 4.9 4.1 4.0 CHLOR 102 106 101 CO2 28 28 24 ANION 3* 3* 9 BUN 20 11 9 CREAT 0.95 0.68 0.72 CHEM: Recent Labs 11/20/2335611/19/2334811/17/232007 ALB 2.4* 1.9* 2.6* TPROT 7.0 6.8 7.8 CA 8.9 8.5 8.6 MG 1.9 1.5* 1.6* HEPATIC: Recent Labs 11/20/2335611/19/2334811/17/232007 ALKPHOS 130* 158* 245* ALT 32 31 29 AST 76* 65* 78* TBILI 2.2* 2.2* 3.0* LIPASE -- -- 23 URINALYSIS: Recent Labs 11/20/23 0538 11/19/23 1034 11/19/23 0635 11/17/232013 PH 7.45 7.37 7.18* -- SPGR -- -- -- >=1.030* UGLUC -- -- -- Negative UBILI -- -- -- 2+* UKET -- -- -- Negative UHB -- -- -- 1+* UPROT -- -- -- 1+* UWBC -- -- -- 0-5 /HPF CARDIAC: Recent Labs 11/17/232007 PBNP 83 ASSESSMENT: Acute respiratory failure with hypoxia and hypercapnia Toxic metabolic (more content not included)... [facility] 11-19-2023 Note HNO ID: [id number] Author: MARIAH POWELL MD Service: Critical Care Author Type: Physician Type: Progress Notes Filed: 11/19/2023 13:58 Note Text: [facility] STAFF PHYSICIAN NOTE OF PERSONAL INVOLVEMENT IN CARE I have reviewed the consult note obtained and documented by the CAMILLE. I have personally performed a face to face assessment of the patient and performed the substantive portion of the visit which includes the medical decision making. I have discussed the case and management of the patient's care. The following comments revise or confirm relevant lopez components of the note. IMPRESSION/PLAN: ASSESSMENT: Acute respiratory failure with hypoxia and hypercapnia Toxic metabolic encephalopathy Severe sepsis Likely COPD with exacerbation CAP Cirrhosis with ascites ?SBP Chronic anemia Thrombocytopenia Hx of hep C Hx of tobacco abuse PLAN: Continue AVAPS. > Follow-up ABG shows stabilization. > Transition off as mentation improves. > Nasal cannula to maintain SpO2 greater than 92% Hemodynamics remain stable. Maintain MAP greater than 65 mmHg. Albumin x 3 doses Continue home Lasix add spironolactone. Scheduled DuoNebs and NebuSal. Wheezing improved with Solu-Medrol given on floors. Will continue 40 mg every 8 hours. Empiric Rocephin and Zithromycin. Influenza A/B/RSV and SARS-CoV-2 negative. Check sputum culture and urinary antigens. Obtain blood cultures. Procalcitonin 5, lactic acid 5.1 could also be related to liver disease. De-escalate as able with cultures Placed on sepsis pathway during rapid response. Patient met criteria given lactic acid, RR and white count however there is a concern for fluid overload given third spacing in the setting of cirrhosis/ascites therefore IV fluids were not given and patient was given Lasix. I agree patient does not need further fluid resuscitation at this time. Elevated lactate likely due to underlying cirrhosis and poor clearance. Paracentesis with fluid analysis No active signs of bleeding. Check iron panel. Transfuse for hemoglobin less than 7 and platelets less than 10,000. No treatment for hep C, will check quant. Recommend OP follow-up for potential treatment given cirrhosis. GI/DVT prophylaxis Advance diet as tolerated CODE STATUS: Full code Patient/Family Updated: Patient, Carolina Hightower, contacted. They were updated on the patient's goals of care, medical plan for the day, clinical education consultant recommendations, medical disposition and current medical condition/prognosis as and if clinically indicated. All questions and concerns were answered and addressed at this juncture. They were contacted on November 19, 2023 at 1008. The duration of the conversation was 7 minutes. This patient has a high probability of sudden, clinically significant deterioration, which requires the highest level of physician preparedness to intervene urgently. I managed/supervised life or organ supporting interventions that required frequent physician assessment. I devoted my full attention to the direct care of this patient for the amount of time indicated below. Time I spent with family or surrogate(s) is included only if the patient was incapable of providing the necessary information or participating in medical decision making. Time devoted to teaching and to any procedures I billed separately is not included. Critical Care Documentation: The patient has the following organ/system impairment(s): Respiratory failure (Acute, with Hypercapnea, with Hypoxemia) Time spent providing critical care services: 35 minutes. SIGNATURE: Mariah Powell MD [facility] DATE of SERVICE: 11/19/2023 [facility] 11-19-2023 Note HNO ID: [id number] Author: NILA MOLINA MD Service: Hospital Medicine Author Type: Physician Type: Progress Notes Filed: 11/19/2023 07:32 Note Text: HOSPITALIST SERVICE PROGRESS NOTE SUBJECTIVE HPI and brief hospital course: 48-year-old female with past medical history of Hepatitis C Cirrhosis Presented to an outside emergency department complaining of abdominal pain and encephalopathy. Per the transfer note, exam was notable for worsening abdominal distention and diffuse tenderness. Patient was transferred to [facility] for further care. At the time of this documentation, the HANDP by the admitting provider is pending. A rapid was called overnight on November 19 for this patient and the sound CAMILLE responded to the patient and updated me that his CT abdomen pelvis without oral contrast is ordered and lactate level is pending and ICU team is aware of the patient's status. Interval Events: Patient looks in significant distress from shortness of breath and abdominal distention. OBJECTIVE Vital Signs: BP 129/77 Pulse 82 Temp (Src) 98.4 (Oral) Resp 18 Ht 5' 2 (1.58m) Wt 189 lb 5 oz (85.9kg) SpO2 92% LMP 11/20/2020 BMI 34.62 kg/(m2). O2 Therapy: Nasal Cannula, Liters: 4 No documented fever since admission Patient Vitals for the past 24 hrs: Pulse BP 11/19/23 0438 82 129/77 11/18/23 2315 72 130/78 11/18/23 1937 78 139/76 11/18/23 1644 74 112/62 Physical Exam Constitutional: General: She is in acute distress. Appearance: She is ill-appearing and toxic-appearing. Cardiovascular: Rate and Rhythm: Normal rate. Heart sounds: Normal heart sounds. No murmur heard. No friction rub. No gallop. Pulmonary: Effort: Respiratory distress present. Breath sounds: No wheezing or rhonchi. Comments: Sounds congested on auscultation Abdominal: General: There is distension. Palpations: Abdomen is soft. Tenderness: There is abdominal tenderness. Musculoskeletal: Right lower leg: No edema. Left lower leg: No edema. Labs: CBC: Recent Labs 11/19/2334811/17/232007 WBC 13.45* 11.50* HB 9.4* 10.3* HCT 30.3* 33.8* PLT 80* 112* MCV 76.1* 77.7* RDWCV 24.2* 23.6* NEUTP -- 64.9 ABSNEUT -- 7.47 LYMPHP -- 21.1 MONOP -- 12.2 EODINP -- 0.8 COAG: No results for input(s): APTT , INR in the last 168 hours. BMP: Recent Labs 11/19/2334811/17/232007 GLUC 89 121* NA 137 134* K 4.1 4.0 CHLOR 106 101 CO2 28 24 ANION 3* 9 BUN 11 9 CREAT 0.68 0.72 CHEM: Recent Labs 11/19/2334811/17/232007 ALB 1.9* 2.6* TPROT 6.8 7.8 CA 8.5 8.6 MG 1.5* 1.6* HEPATIC: Recent Labs 11/19/2334811/17/232007 ALKPHOS 158* 245* ALT 31 29 AST 65* 78* TBILI 2.2* 3.0* LIPASE -- 23 URINALYSIS: Recent Labs 11/19/23 0635 11/17/232013 PH 7.18* -- SPGR -- >=1.030* UGLUC -- Negative UBILI -- 2+* UKET -- Negative UHB -- 1+* UPROT -- 1+* UWBC -- 0-5 /HPF CARDIAC: No results for input(s): CKTEST , CKMB , CKMBP in the last 168 hours.TROPONIN@:8,No results found for: BNP :8)@ No intake or output data in the 24 hours ending 11/19/23 0702 Serum creatinine: 0.68 mg/dL 11/19/23 0349 Estimated creatinine clearance: 100.6 mL/min Imaging: CT brain from November 17 was unremarkable for anything acute. Chest x-ray from November 17 showed no focal consolidation but showed prominent vasculature. EKG noted to have been completed at the ED however electronic copy not yet uploaded in the chart. Medications: IV infusions: Scheduled: haloperidol lactate, 2 mg, ONCE furosemide, 40 mg, DAILY lactulose, 20 g, TID gabapentin, 100 mg, q [address], 40 mg, DAILY (6 AM) heparin, 5,000 Units, q 12 H PRN: NaCl 0.9%, 20 mL, PRN oxyCODONE IR, 5 mg, q 4 H PRN iv contrast, , DIRECTED PRN Home Meds: Pantoprazole 40 mg twice daily Lactulose Furosemide 20 mg daily Gabapentin 100 mg twice daily Assessment/Plan Sepsis likely secondary to bowel perforation CT abdomen pelvis ordered and pending ABG was suggestive of metabolic and respiratory acidosis ICU team aware of the patient per sound night CAMILLE Repeat lactate level and procalcitonin in process Will order 30 cc/kg fluid bolus cautiously given vascular prominence on chest x-ray. Will empirically start her on piperacillin tazobactam . Will discontinue all oral medications and make her strict n.p.o. for now. Suspected COPD exacerbation Started the patient on BiPAP Transferring the patient to the ICU Patient got a dose of 125 mg methylprednisolone intravenously today. Will defer further doses to ICU team. Patient also on piperacillin tazobactam for suspicion of bowel perforation. Acute encephalopathy(patient alert at the moment) Ammonia level was within normal limits . Could be metabolic in the setting of suspected bowel perforation Will follow-up on CT abdomen pelvis Acute hypoxemic respiratory failu (more content not included)... [facility] 11-19-2023 Note HNO ID: [id number] Author: ARIADNE JIM, RN Service: Nursing Author Type: Registered Nurse Type: Nursing Progress Note Filed: 11/19/2023 07:36 Note Text: Rapid response called at this time. See rapid response flow sheet and provider note. [facility] 11-11-2023 Miscellaneous Notes Pt notified. She was told her appt with us will be cancelled and to go to ER for care. Melisa Vick Ma With severe abdominal pain she is better off going to the ER, I am limited in what I can do to evaluate and treat her pain. Dacia Acosta MD Patient calling in to make ER F/U appt with Dr. Acosta. Appt has been made for today at 3:40pm with PCP per her request. She states she has to notify a cab for transportation and hopes to be at appt today. During call, patient noted to sound short of breath, hoarse voice and tearful. Reports she is having excruciating belly pain . Reports she has been to [facility] ER 3 times in last week. States if she goes back to the ER now, they will just send her back home again. Patient is unsure if she can get transportation to another ER today. Please advise patient. Current sx's: -9 out of 10 abd pain -states she feels her abdomen in swollen -has no thermometer to check temp but states she has been hot and cold -dizziness when standing up, able to walk ok -nausea -had diarrhea yesterday -mild cough -sore throat -5 out of 10 headache -wheezing at times -denies leg or hand swelling Per ER report pt was advised to take her medications and follow up with her GI Provider. Patient unable to confirm any upcoming [facility] appt as of now. This nurse attempted to contact [facility] x 3-no answer at this time and voicemail asks to leave message and they will return call within 24 hours. Pt asking if she must go back to [facility] ER now or can she try to come to her ER F/U appt with Dr. Bell this afternoon? Thank you. documented in this encounter [facility] 11-07-2023 Miscellaneous Notes Noted Dacia Acosta MD Pt calls to report she went to [facility] ER today for abdominal pain and bloating. Pt reports her abdomen was drained. PT calls and states the following: ABDOMINAL PAIN LOCATION: upper part of stomach RADIATION: No ONSET: last week SUDDEN: NA PATTERN: Constantly SEVERITY: 10 - Pt reports she cannot take this pain and ibuprofen is going to help. RECURRENT SYMPTOMS: pain/ bloating CAUSE: cirrhosis of the liver RELIEVING/AGGRAVATING FACTORS: Nothing OTHER SYMPTOMS: Pt reports her whole body hurts but advised that she probably getting Influenza B because her boyfriend tested positive for it. : no Jesi Jason LPN documented in this encounter [facility] 11-03-2023 Miscellaneous Notes Patient returns call and provider message reviewed. Patient verbalizes understanding and will call back if wants to schedule appointment with PCP. Zakia Hughes RN TC to Pt. Unable to LM [...] access to test. Please review and advise, Zakia Hughes RN documented in this encounter [facility] 11-01-2023 Note HNO ID: [id number] Author: WILLIAMS SALVADOR PA-C Service: ? Author Type: Physician Middle Card Tender Type: Progress Notes Filed: 11/01/2023 16:28 Note Text: This note was created using Stykyter. Subjective Carolina Hightower is a 48 year [...] PAST SURGICAL HISTORY OF 2018 liver bx [facility] FAMILY HISTORY Problem Relation Age of [...] follow-up with dermatology and given referral to [facility] and [facility]. Patient voiced understanding. Feeling great complaints medicated not sure I know the vaginal I canceled we are lima (more content not included)... [facility] 11-01-2023 History of Present illness Narrative Images from the original note were not included. This note was created using Stykyter. Subjective Carolina Hightower is a 48 year [...] PAST SURGICAL HISTORY OF 2018 liver bx [facility] FAMILY HISTORY Problem Relation Age of [...] follow-up with dermatology and given referral to [facility] and [facility]. Patient voiced understanding. Feeling great complaints medicated not sure I know the vaginal I canceled we are transportation issues like - CONSULT TO DERMATOLOGY Williams Salvador PA-C documented in this encounter [facility] 11-01-2023 Instructions Williams Salvador PA-C - 11/01/2023 4:05 PM EST [facility] Dermatology [address], [place] [phone] documented in this encounter [facility] 09-20-2023 Telephone encounter Note Unable to contact patient X2 [facility] 09-20-2023 Miscellaneous Notes Unable to contact patient X2 S: Patient admitted to: [facility] 09/09/23 B: Discharged on : 09/15/23 A: Hospital follow up call initiated to discuss any medication changes, follow up appointments and discharge instructions: Small bowel obstruction R: No contact x 1 at : [phone] documented in this encounter [facility] 09-16-2023 Telephone encounter Note S: Patient admitted to: [facility] 09/09/23 B: Discharged on : 09/15/23 A: Hospital follow up call initiated to discuss any medication changes, follow up appointments and discharge instructions: Small bowel obstruction R: No contact x 1 at : [phone] [facility] 09-15-2023 Note Formatting of this n ote might be different from the original. Social work follow up on discharge. SHELL notified by patients bedside RN patient needs assist with transport to home. SHELL spoke to patient to confirm address on file is correct. She reports she typically will use her [employer] for transport and uses their uber/lyft service. SHELL placed call to [facility] [phone]. Transport arranged for pickle maker at [facility] between 4:12-6:12pm. They will call the unit 15 minutes prior to their arrival . Ref # [id number]. transportation worker updated patients bedside RN, who will update the patient. [facility] 09-15-2023 Note Formatting of this n ote might be different from the original. Social work follow up on discharge. SHELL notified by patients bedside RN patient needs assist with transport to home. SHELL spoke to patient to confirm address on file is correct. She reports she typically will use her [employer] for transport and uses their uber/lyft service. SHELL placed call to [facility] [phone]. Transport arranged for pickle maker at [facility] between 4:12-6:12pm. They will call the unit 15 minutes prior to their arrival . Ref # [id number]. transportation worker updated patients bedside RN, who will update the patient. [facility] 09-15-2023 Miscellaneous Notes Social work follow up on discharge. SHELL notified by patients bedside RN patient needs assist with transport to home. SW spoke to patient to confirm address on file is correct. She reports she typically will use her [employer] for transport and uses their uber/lyft service. SW placed call to [employer] transport [phone]. Transport arranged for pickle maker at [address] [place] [address] between 4:12-6:12pm. They will call the unit 15 minutes prior to their arrival . Ref # [id number]. transportation worker updated patients bedside RN, who will [...] Limits Permission given to speak with patient malt liquors sales representative/caregiver as indicated: Yes Confirmation of [...] of Daily Living Ambulation: Independent Bathing/Dressing: Independent Elimination/Continence/Toileting: Independent Feeding: Independent Who Assists with Activities [...] pain, nausea and vomiting, hx: polysubstance abuse. MI diet and Addiction Medicine consulted. Discharge plan home with Significant Other. Meg Herrmann RN Attempted to complete Initial assessment over the phone. Patient currently unavailable/off unit. Will try again as time allows. TCC will follow. documented in this encounter [facility] 09-15-2023 Note Discharge Summary Carolina [...] SIGNIFICANT DIAGNOSTIC STUDIES: US guided abdominal paracentesis [[id number]] Collected: 09/14/23 113 Order Status: Completed Updated: 09/14/231136 Narrative: Patient [...] 11:36 AM EST US guided abdominal paracentesis [[id number]] Collected: 09/10/23853 Order Status: Completed Updated: 09/10/23854 Narrative: Patient Name: CAROLINA HIGHTOWER : 1975 Exam Date/Time: 09/10/2023 08:29 Proced (more content not included)... [facility] 09-15-2023 History of Present illness Narrative Nutrition Assessment Type and Reason [...] (S/p paracentesis 09/14 with 1.7L removed) Ascites Oracle R12 Developer Strength: Not Performed Nutrition Assessment: 47yo F [...] On: Kcal/kg Weight Used for Energy Requirements: [place] Weight for Energy Calculation (kg): 50 kg Total Energy Requirements (kcals/day): 27-32 kcal/kg = 6494-0750 kcal/day Weight Used for Protein Requirements: [place] Weight in Kg Used for Protein Requirements: [...] lb) (stated) % Weight Change (Calculated): 5 [place] Body Weight (lbs) (Calculated): 110 lbs [place] Body Weight (Kg) (Calculated): 50 kg % [place] Body Weight (Calculated): 190.8 % BMI (kg/m2) [...] Continue current diet Latha Lester RD Contact: *[phone] Images from the original note were not [...] CL 113* 110* 107 CO2 * * 23 BUN 2* 4* 4* CREATININE 0.68 [...] 1,000 mL enema, 1 enema, Rectal, TID bhscfrzl-qgdeqnpybi-jfkvhjopr, , Topical, TID pantoprazole (ProtoNix) 40 mg [...] Saima Tan MD Division of Hospitalist Medicine [facility] Images from the original note were not [...] 1,000 mL enema, 1 enema, Rectal, TID sgavqcyz-dbatgbvjpu-sjdsivmle, , Topical, TID pantoprazole (ProtoNix) 40 mg [...] Saima Tan MD Division of Hospitalist Medicine [facility] Images from the original note were not included. Hospitalist Progress Note 09/13/2023 Subjective: Admit Date: 09/09/2023 PCP: No primary care provider on file. Room#: W7-846/W7-658 A Brief Hospital course: Patient is 47-year-old [...] Saima Tan MD Division of Hospitalist Medicine [facility] Images from the original note were [...] Surgery PGY-1 09/12/23 4:53 PM Pager # [phone] This note may have been dictated using [employer] Practice Edition 2.6 and/or [employer] Voice Recognition Feature. The document was proofread; however, unrecognized voice recognition flight/transport nurse errors may be present. Associated attestation - Karen Yun MD - 09/13/2023 2:49 PM EST ~~~~~~~~~~~~~~~~~~~~~~~~~~~~~~~~~ ~~~~~~~~~~~~~~~~~~~~~~~~~~~~ ATTENDING ADDENDUM Patient Active Problem List Diagnosis [...] Division of Trauma Department of Surgery [facility] ~~~~~~~~~~~~~~~~~~~~~~~~~~~~~~~~~ ~~~~~~~~~~~~~~~~~~~~~~~~~~~~ This note may have been dictated using [employer] Practice Edition 2.6 and/or [employer] Voice Recognition Feature. The document was proofread; however, unrecognized voice recognition flight/transport nurse errors may be present. [facility] ADMISSION MEDICATION RECONCILIATION Date: 09/12/23 Room:[facility] [...] on last fill dates from patient's [facility]. Home medications to restart if there [...] 4:15 PM 09/12/2023 4:18 PM Kaylin Camarillo, PharmD Electronically signed by Kaylin Camarillo [facility] at 09/12/2023 4:18 PM EST Nutrition Assessment [...] muscle mass loss Fluid Accumulation: Mild Ascites Oracle R12 Developer Strength: Not Performed Nutrition Assessment: 47yo F [...] On: Kcal/kg Weight Used for Energy Requirements: [place] Weight for Energy Calculation (kg): 50 kg Total Energy Requirements (kcals/day): 27-32 kcal/kg = 7469-6766 kcal/day Weight Used for Protein Requirements: [place] Weight in Kg Used for Protein Requirements: [...] 05/26/22 198#) % Weight Change (Calculated): 2.8 [place] Body Weight (lbs) (Calculated): 110 lbs [place] Body Weight (Kg) (Calculated): 50 kg % [place] Body Weight (Calculated): 186.9 % BMI (kg/m2) [...] soon to determine Latha Lester RD Contact: *[phone] Images from the original note were not included. Hospitalist Progress Note 09/12/2023 Subjective: Admit Date: 09/09/2023 PCP: No primary care provider on file. Room#: W7-726/[facility]726 A Brief Hospital course: Patient is 47-year-old [...] Saima Tan MD Division of Hospitalist Medicine [facility] Images from the original note were not included. Hospitalist Progress Note 09/11/2023 Subjective: Admit Date: 09/09/2023 PCP: No primary care provider on file. Room#: W76/W7-414 A Interval History: Patient is 47-year-old with [...] Judah Valentine MD Division of Hospitalist Medicine Acute [facility] Nutrition rescreen completed. Patient is NPO/Clear [...] to follow closely. documented in this encounter [facility] 09-15-2023 Hospital course Narrative Discharge [...] SIGNIFICANT DIAGNOSTIC STUDIES: US guided abdominal paracentesis [[id number]] Collected: 09/14/23 113 Order Status: Completed Updated: 09/14/231136 Narrative: Patient Name: CAROLINA HIGHTOWER : 1975 [facility]#: [id number] Exam Date/Time: 09/14/2023 09:36 Procedure: US GUIDED [...] 11:36 AM EST US guided abdominal paracentesis [[id number]] Collected: 09/10/23853 Order Status: Completed Updated: 09/10/23854 [...] AM EST CT abdomen pelvis w contrast [[id number]] Collected: 09/09/232018 Order Status: Completed Updated: 09/09/232028 [...] 8:28 PM EST XR chest 1 view [[id number]] Collected: 09/09/231846 Order Status: Completed Updated: 09/09/231848 Narrative: Patient Name: CAROLINA HIGHTOWER : 1975 [id number] Exam Date/Time: 09/09/2023 18:44 Procedure: XR CHEST [...] finding. Report Dictated on Electronically Signed By: Jagdeep Will MD Electronically Signed Date/Time: 09/09/2023 6:48 [...] Your Medications These medications were sent to [facility] - [place], [place] - [address] [place] [address] desvenlafaxine 100 MG 24 hr tablet doxepin 10 MG capsule traZODone 100 MG tablet DIET: Adult diet Regular ACTIVITY: No restriction. COMPLEXITY OF FOLLOW UP: [] Moderate Complexity: follow up within 7-14 calendar days (73120) [] Severe Complexity: follow up within 7 calendar days (57390) FOLLOW UP TESTING, PENDING RESULTS OR REFERRALS AT TRANSITIONAL CARE VISIT: [] Yes [] No PENDING STUDIES: DISPOSITION: Home FACILITY/HOME CARE AGENCY NAME: Follow up with Cristiana Strauss MD [address] [facility] [address] Schedule an appointment as soon as possible [...] 09/15/2023, 12:04 PM documented in this encounter [facility] 09-15-2023 Note Hospitalist Progress Note 09/15/2023 Subjective: Admit Date: 09/09/2023 PCP: No primary care provider on file. [facility]#: [facility] A Brief Hospital course: Patient [...] 1,000 mL enema, 1 enema, Rectal, TID bcuhpgkz-wlyawjkdid-mzkdiybwi, , Topical, TID pantoprazole (ProtoNix) 40 mg [...] Extended Emergency Contact Information Primary Emergency Contact: KatjaJohn membreno Relation: Spouse Secondary Emergency Contact: Vannesa Hightower Mobile Relation: Daughter Angeladuncan Pedersen MD [facility] Division of Hospitalist Medicine [facility] 09-14-2023 Note Formatting of this n ote might be different from the original. Chart reviewed. Patient had paracentesis today with 1700 ml removed. Surgery is following patient for likely ileus -->no plans for intervention and recommend ADAT. Current discharge plan is home no needs once medically stable. [facility] 09-14-2023 Note Formatting of this n ote might be different from the original. Chart reviewed. Patient had paracentesis today with 1700 ml removed. Surgery is following patient for likely ileus -->no plans for intervention and recommend ADAT. Current discharge plan is home no needs once medically stable. [facility] 09-14-2023 Note Hospitalist Progress Note 09/14/2023 Subjective: Admit Date: 09/09/2023 PCP: No primary care provider on file. Room#: -726/722 A Brief Hospital course: Patient is 47-year-old [...] 1,000 mL enema, 1 enema, Rectal, TID rhbsycos-elvptbketk-ukzntyuyd, , Topical, TID pantoprazole (ProtoNix) 40 mg [...] Pedersen MD [facility] Division of Hospitalist Medicine [facility] 09-14-2023 Note Formatting of this n ote might be different from the original. Patient to ultrasound department for paracentesis. History, medications and allergies reviewed. Samuel Pastor PA-C in to speak with patient. Informed consent obtained. 1700 mL clear yellow colored fluid removed. Patient tolerated procedure well. Bandaid applied to site. Patient discharged to [facility] 09-14-2023 Note Formatting of this n ote might be different from the original. Patient to ultrasound department for paracentesis. History, medications and allergies reviewed. Samuel Pastor PA-C in to speak with patient. Informed consent obtained. 1700 mL clear yellow colored fluid removed. Patient tolerated procedure well. Bandaid applied to site. Patient discharged to [facility] 09-13-2023 Note Hospitalist Progress Note 09/13/2023 Subjective: Admit Date: 09/09/2023 PCP: No primary care provider on file. Room#: W7726/W7722 A Brief Hospital course: Patient is 47-year-old [...] Pedersen MD [facility] Division of Hospitalist Medicine [facility] 09-13-2023 Note Care Management Prog [...] Stay (Days): 4 GMLOS: No GMLOS Documented [facility] 09-13-2023 Note Formatting of this n [...] Stay (Days): 4 GMLOS: No GMLOS Documented [facility] 09-13-2023 Note Formatting of this n ote [...] Stay (Days): 4 GMLOS: No GMLOS Documented [facility] 09-12-2023 Note Hospitalist Progress Note 09/12/2023 Subjective: Admit Date: 09/09/2023 PCP: No primary care provider on file. Room#: W7-996/W7-936 A Brief Hospital course: Patient is 47-year-old [...] Extended Emergency Contact Information Primary Emergency Contact: Morris RunJohn Relation: Spouse Saima Tan MD Division of Hospitalist Medicine Acute [facility] 09-12-2023 Note Formatting of this n ote might be different from the original. Care Managment Initial Assessment Date: 09/12/2023 Patient Name: Carolina Hightower : 1975 Patient Information Source of Information: Patient Cognition/Language: WFL - Within Functional Limits Permission given to speak with patient malt liquors sales representative/caregiver as indicated: Yes Confirmation of [...] of Daily Living Ambulation: Independent Bathing/Dressing: Independent Elimination/Continence/Toileting: Independent Feeding: Independent Who Assists with Activities [...] home with Significant Other. Meg Herrmann RN [facility] 09-12-2023 Note Formatting of this n ote might be different from the original. Care Managment Initial Assessment Date: 09/12/2023 Patient Name: Carolina Hightower : 1975 Patient Information Source of Information: Patient Cognition/Language: WFL - Within Functional Limits Permission given to speak with patient malt liquors sales representative/caregiver as indicated: Yes Confirmation of Payer with patient/family: Yes Payer Name: [employer] [place]: No Confirmation of Primary Care Physician: Confirmed [...] of Daily Living Ambulation: Independent Bathing/Dressing: Independent Elimination/Continence/Toileting: Independent Feeding: Independent Who Assists with Activities [...] home with Significant Other. Meg Herrmann RN [facility] 09-11-2023 Note Formatting of this n ote might be different from the original. Attempted to complete Initial assessment over the phone. Patient currently unavailable/off unit. Will try again as time allows. TCC will follow. [facility] 09-11-2023 Note Formatting of this n ote might be different from the original. Attempted to complete Initial assessment over the phone. Patient currently unavailable/off unit. Will try again as time allows. TCC will follow. [facility] 09-11-2023 Note Hospitalist Progress Note 09/11/2023 Subjective: Admit Date: 09/09/2023 PCP: No primary care provider on file. Room#: W7-726/W7721 A Interval History: Patient is 47-year-old with [...] Judah Valentine MD Division of Hospitalist Medicine [facility] 09-11-2023 Note ADDICTION MEDICINE CONSULTATION [...] Physical Exam Vi (more content not included)... [facility] 09-11-2023 Hospital Discharge instructions Jozef Cordova MD - 09/11/2023 11:48 AM EST Images from the original note were not included. [facility] PROGRAMS Addiction Medicine Intensive Outpatient Program [place] ([facility]): [phone] [place]: [phone] [place]: [phone] Behavioral Health Intensive Outpatient Program [place] ([facility]): [phone] [place]: [phone] First Step [place] ([facility] [phone] [place]: [phone] Partial Hospitalization Program [place] ([facility]): [phone] Traumatic Stress Center [place] ([facility]): [phone] [facility] [place] ([facility]): [phone] Alcoholics Anonymous Meetings [email or web address] [facility] [address] [place] [address], [facility] [address], [place] [address] Saima Tan MD - 09/15/2023 12:01 PM EST F/U with PCP, GI, Addiction Medicine documented in this encounter [facility] 09-11-2023 Consult note Associated Order [...] 09/09/2023 Patient Name: CAROLINA HIGHTOWER : 1975 [id number] Exam Date/Time: 09/09/2023 18:44 Procedure: XR CHEST [...] finding. Report Dictated on Electronically Signed By: Jagdeep Will MD Electronically Signed Date/Time: 09/09/2023 6:48 PM EST LABS Recent Results (from the past 48 hour(s)) ECG 12 lead Collection Time: 09/09/23 6:46 PM Result Value Ref Range Heart Rate 73 bpm QRSD Interval 81 ms QT Interval 455 ms QTC Interval 501 ms P [place] 55 degrees QRS [place] -7 degrees T Wave [place] 28 degrees [place] Interval 157 ms CBC auto differential Collection [...] clinical information on the day of visit. [facility] 09-11-2023 Consult note Associated Order (s): IP [...] 09/10/2023 Patient Name: CAROLINA HIGHTOWER : 1975 [id number] Exam Date/Time: 09/10/2023 08:29 Procedure: US GUIDED [...] 09/09/2023 Patient Name: CAROLINA HIGHTOWER : 1975 [id number] Exam Date/Time: 09/09/2023 20:11 Procedure: CT ABDOMEN [...] finding. Report Dictated on Electronically Signed By: Jagdeep Will MD Electronically Signed Date/Time: 09/09/2023 6:48 PM EST LABS Recent Results (from the past 48 hour(s)) ECG 12 lead Collection Time: 09/09/23 6:46 PM Result Value Ref Range Heart Rate 73 bpm QRSD Interval 81 ms QT Interval 455 ms QTC Interval 501 ms P [place] 55 degrees QRS [place] -7 degrees T Wave [place] 28 degrees [place] Interval 157 ms CBC auto differential Collection [...] day of visit. documented in this encounter [facility] 09-11-2023 Nurse Note Pt was found wandering the hospital by security, confused. Pt brought back by security and she said she was going outside to smoke. She was very upset that she could not have a smoke. Pt threatened to punch someone in the face. Pt is confused. [facility] 09-11-2023 Nurse Note Pt was found wandering the hospital by security, confused. Pt brought back by security and she said she was going outside to smoke. She was very upset that she could not have a smoke. Pt threatened to punch someone in the face. Pt is confused. documented in this encounter [facility] 09-10-2023 Note Attending History an [...] hours. I revie (more content not included)... [facility] 09-10-2023 History and physical note Images from [...] MD Division of Hospitalist Medicine Inpatient Medical Services/[facility] [employer] Phone: 09-10-2023 History and physical note Images [...] MD Division of Hospitalist Medicine Inpatient Medical Services/[facility] documented in this encounter [facility] 09-10-2023 Emergency department Note Report given to 7W at this time. Transport en route. Laura Antony RN 09/10/23 0501 [facility] 09-10-2023 Emergency department Note Report given to 7W at this time. Transport en route. Laura Antony RN 09/10/23 0501 They are here now to transport the patient to [facility] 09/10/23 0447 [facility] ETA 0430 RN will call report in a few :) [facility] 09/10/23 0432 EMERGENCY DEPARTMENT ENCOUNTER Pt Name: [...] finding. Report Dictated on Electronically Signed By: Jagdeep Will MD Electronically Signed Date/Time: 09/09/2023 6:48 [...] Culture. Procedure Abnormality Status --------- ------ Complete Urinalysis[[id number]] Abnormal Final result Please view results for [...] to medical service at [facility]. [facility] unfortunately does not have the capacity to perform paracentesis if deemed necessary. Given this illness provider would like patient be transferred to [facility] for small bowel obstruction management, general surgery consultation. Discussed with Dr. Salas who accepted patient for transfer. Patient will be transferred to [facility]. PROCEDURES: Unless otherwise noted below, none Procedures [...] Provider JOSE Collins 09/09/232117 Emergency Department Encounter [facility] ED Patient: Carolina Hightower : 1975 Date of Evaluation: 09/09/2023 ED Supervising Physician: Lenny Macdonald MD I independently examined and evaluated Carolina Hightower. 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 I [...] team they recommend transfer to [facility] as they do not have IRP abilities [...] for clarification.) Lenny Macdonald MD Acute Care [facility] Lenny Macdonald MD 09/12/23 1500 Pt c/o abdominal pain that began this afternoon, states that she has hx of cirrhosis. Family states she seems off. documented in this encounter [facility] 09-10-2023 Emergency department Note They are here now to transport the patient to [facility] [employer] 09/10/23 0447 [facility] 09-10-2023 Emergency department Note [facility] ETA 0430 RN will call report in a few :) [employer] 09/10/23 0432 [facility] 09-09-2023 Emergency department Triage note Pt c/o abdominal pain that began this afternoon, states that she has hx of cirrhosis. Family states she seems off. [facility] 09-09-2023 Physician Emergency department Note EMERGENCY DEPARTMENT [...] finding. Report Dictated on Electronically Signed By: Jagdeep Will MD Electronically Signed Date/Time: 09/09/2023 6:48 [...] Culture. Procedure Abnormality Status --------- ------ Complete Urinalysis[[id number]] Abnormal Final result Please view results for [...] to medical service at [facility]. [facility] unfortunately does not have the capacity to perform paracentesis if deemed necessary. Given this illness provider would like patient be transferred to [facility] for small bowel obstruction management, general surgery consultation. Discussed with Dr. Salas who accepted patient for transfer. Patient will be transferred to [facility]. PROCEDURES: Unless otherwise noted below, none Procedures [...] signed) Emergency Medicine Provider JOSE Collins 09/09/232117 [facility] 09-09-2023 Physician Emergency department Note Emergency Department Encounter [facility] ED Patient: Carolina Hightower : 1975 Date of Evaluation: 09/09/2023 ED Supervising Physician: Lenny Macdonald MD I independently examined and evaluated Carolina Hightower. 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 I [...] team they recommend transfer to [facility] as they do not have IRP abilities [...] [employer] Lenny Macdonald MD 09/12/23 1500 [employer] Phone: 03-24-2023 Miscellaneous Notes Attempted to contact [...] advise. Miladis Blair documented in this encounter [facility] 01-27-2023 Miscellaneous Notes Pt notified. Melisa Vick [...] medication names. Please send RX to [facility] in [place] and advise patient when these have been ordered by provider per patient request. Patient has been identified by name and birthdate. Duration of symptoms: months Person calling: self Call patient at: at home [phone] (home) [phone] (cell) Was an appointment scheduled: No Closing statement: Results or non-symptom based questions: Thank you for calling [facility], your call will be returned within the next business day. [employer] documented in this encounter [facility] 01-25-2023 Miscellaneous Notes January 26, 2023 PID: [id number] Carolina Hightower [facility] [address] [address] Dear Ms. Hightower, Your recent breast imaging [...] who ordered/prescribed your screening mammogram: Please call [phone] or [phone] to schedule an appointment for your additional [...] and reports are kept on file at [facility] as part of your permanent medical record, and are available for your continuing care. Thank you for allowing us to help in meeting your health care needs. Sincerely, Dr. Estrada Interpreting Radiologist [facility] (Additional imaging) documented in this encounter [facility] 12-02-2022 History of Present illness Narrative Images from the original note were not included. This note was created using Stykyter. Subjective Carolina Hightower is a 47 year [...] PAST SURGICAL HISTORY OF 2018 liver bx [facility] ALLERGIES Aspirin, Bupropion, Codeine, Prednisone, and [...] evaluation. JOSE Vega documented in this encounter [facility] 10-02-2022 Miscellaneous Notes Left message of results on secure voicemail. Kayleen Rapp MA Please call patient and inform that her wound culture is negative. She can quit taking the ATB. She needs to follow up as directed. documented in this encounter [facility] 09-29-2022 History of Present illness Narrative Patient presents with: Sore Throat: LANCE, fever, rash on chin x2 weeks HPI: Skin Lesion: Location: chin Duration: couple weeks, has happened a few times before (MRSA in April) Pruritis/Pain: very painful Change: getting bigger Drainage/blister/pustule/ulcerati on: bleeding, clear stuff Treatment: numbing stuff (lidocaine), [...] Ananda Prabhakar MD documented in this encounter [facility] 09-15-2022 History of Present illness Narrative POPULATION HEALTH NAVIGATION OUTREACH Action/September 15, 2022 1:09 PM Patient is on [facility] Gap list for the following [facility] Gaps F32.9 - Major depression LILLY with [...] Outreach HCC or suspected condition Payer: Payor: [facility] MEDICAID / Plan: [facility] MEDICAID / Product Type: Medicaid / Care [...] 2022 1:09 PM documented in this encounter [facility] 06-23-2022 Miscellaneous Notes Her dose was changed to 100 mg bid, and a prescription was sent for this at her last appt. Dacia Acosta MD This request is from [facility]. Our prescription is 100 mg taken twice [...] 10/2022 was cancelled. documented in this encounter [facility] 05-24-2022 History of Present illness Narrative TRANSITION CARE MANAGEMENT (TCM) INITIAL CONTACT Wedding Designer Outreach Provider Action/FYI: 7 day TCM Pt [...] might be hidden SUMMARY: -Pt discharged from [facility] on 05/21/22. -Admitted for: Acute Hepatic Encephalopathy Below copied from [facility] Meditech: History of Present Illness Chief Complaint: [...] in the past. She is at a [facility]. She is not on lactulose or [...] This patient was seen in conjunction with PHOTOGRAPHER PORTRAIT, Kaylin. I have independently interviewed and examined [...] provider to review documented in this encounter [facility] 05-24-2022 Miscellaneous Notes Pt notified. She will [...] discuss findings. Patient can be reached at [phone] documented in this encounter [facility] 05-15-2022 Miscellaneous Notes Reason for Call: chin abscess w/ severe pain, new severe headache Outcome: Pt advised to see a physician within 4 hrs. She understands the recommendation and prefers to go to the [place] ED. See note below. Reason for Disposition [...] she was dx'ed w/ MRSA per the express care on 05/12. 9. OTHER SYMPTOMS: Pt also [...] a tubal ligation. Protocols used: Boil (Skin Abscess)-ADULT-AH Pt reports she began taking doxycyline and [...] recommendation and prefers to go to the [place] ED. Pt states she can not get to [facility] by 3:30pm. Pt refuses offer to speak with virtualist and prefers to have someone take her to the [place] ED. documented in this encounter [facility] 05-10-2022 History of Present illness Narrative Chief Complaint Patient presents with: Follow Up HPI Carolina Hightower is a 46 year old female who presents here today for a wound check. Pt scheduled today for a follow up on a wound check. Pt seen in [facility] on 05/09/22 for evaluation of pain [...] pharmacy closing yesterday. Also has yet to pickle maker today. Pain a 9/10 and described as [...] PAST SURGICAL HISTORY OF 2018 liver bx [facility] Family History FAMILY HISTORY Problem Relation [...] as instructed every 4 hours as needed. Jdrfwfyrmczzaui-Jdwdynhpp-YV (BROMFED DM) 2-30-10 mg/5 mL syrup Take [...] 1. 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 No educational sign language interpreter was used. Rash Review of Systems Constitutional: [...] PAST SURGICAL HISTORY OF 2018 liver bx [facility] ALLERGIES Aspirin, Bupropion, Codeine, Prednisone, and [...] (Patient not taking: Reported on 03/11/2022 ) Nvseikahmuhewwb-Ebkucpmzo-WL (BROMFED DM) 2-30-10 mg/5 mL syrup^Take 5-10 [...] Blanca Dawson APRN.DEEPIKA documented in this encounter [facility] 05-07-2022 Miscellaneous Notes Called and spoke to [...] Please advise. Patient can be reached at [phone]. Patient doesn't use mychart very well. documented in this encounter [facility] 03-11-2022 History of Present illness Narrative This is a 46 year [...] PAST SURGICAL HISTORY OF 2018 liver bx [facility] ALLERGIES Aspirin, Bupropion, Codeine, Prednisone, and [...] as instructed every 4 hours as needed. Tmafstkqqiahmjg-Vawyqnsjh-NC (BROMFED DM) 2-30-10 mg/5 mL syrup Take [...] discussed and patient voices understanding. Tresa Wells APRN.DEEPIKA This note was partially generated using Mirifice voice recognition system. Note was reviewed for accuracy. There may be minor misspellings or grammar miscues with [employer] voice recognition. documented in this encounter [facility] 03-11-2022 Instructions Tresa Wells APRN.CNP - 03/11/2022 2:41 PM EDT 1.) Start keflex for skin infection 2.) Try not to touch face to prevent more bacterial growth. 3.) Recommend a gentle cleanser such as Cetaphil face wash. 4.) Schedule appointment with dermatology: Local would be Boaz Narvaez or Donta Frausto. 5.) Follow up as needed. documented in this encounter [facility] 03-11-2022 Miscellaneous Notes Pt has an appt today with Tresa Wells CNP this can be filled at that time. Hasn't been seen since 08/21/21. Ledy Orantes Ma Please send gabapentin to [facility] in [place]. Thank you. documented in this encounter [facility] 01-12-2022 Miscellaneous Notes Left message for patient with results and recommendations.Jen Neely LPN Negative for flu B, covid and positive for flu A. Please notify thank you documented in this encounter [facility] 01-11-2022 Instructions Becca Singer APRN.DEEPIKA - 01/11/2022 [...] inability to swallow. documented in this encounter [facility] 01-11-2022 History of Present illness Narrative Subjective HPI HPI Carolina Hightower is a 46 year [...] have confirmed and edited as necessary, the [facility] Review of Systems Constitutional: Negative for [...] in 24-48 hours with results, available on Pin or Peg - COVID WITH FLUA+B, ROUTINE Advised needs follow up with PCP Diagnosis and treatment plan were discussed and questions were answered to the patient's satisfaction. Pt acknowledged understanding of concepts and follow up plan. Specific signs and symptoms that would indicate the need for higher level of care were discussed in detail warranting prompt ER evaluation. Becca Singer APRN.DEEPIKA documented in this encounter [facility] Evaluation + Plan note No data available for this section [facility] Evaluation note Diagnosis Viral illness- Primary Unspecified viral infection, in conditions classified elsewhere and of unspecified site [facility] Diagnosis Bacterial skin infection- Primary Unspecified local infection of skin and subcutaneous tissue Acne vulgaris Other acne Chronic midline low back pain with bilateral sciatica [facility] Diagnosis Encounter for screening mammogram for breast cancer [facility] Diagnosis Wound check, abscess- Primary Encounter for other specified aftercare [facility] Diagnosis Dermatitis- Primary Contact dermatitis and other eczema, due to unspecified cause [facility] Diagnosis Chronic midline low back pain with bilateral sciatica documented in this encounter [facility] note* Diagnosis Cellulitis of chin- Primary Cellulitis and abscess of face Picking own skin Other disorder of impulse control URI, acute Acute upper respiratory infections of unspecified site documented in this encounter [facility] note* Diagnosis Skin infection- Primary Unspecified local infection of skin and subcutaneous tissue documented in this encounter [facility] note* Diagnosis Cellulitis of chin Cellulitis and abscess of face documented in this encounter [facility] note* Diagnosis Low back pain, unspecified back pain laterality, unspecified chronicity, unspecified whether sciatica present documented in this encounter [facility] note* Diagnosis Encounter for screening mammogram for breast cancer documented in this encounter [facility] note* Diagnosis Small bowel obstruction (HCC)- Primary Unspecified intestinal obstruction Small bowel obstruction (HCC) Unspecified intestinal obstruction Polysubstance use disorder documented in this encounter [facility] note* Diagnosis Open wound of skin- Primary documented in this encounter [facility] note* Diagnosis Cirrhosis of liver with ascites, unspecified hepatic cirrhosis type (HCC) (HCC)- Primary Recurrent UTI (urinary tract infection) Urinary tract infection, site not specified Chronic hepatitis C without hepatic coma (HCC) Chronic hepatitis C without mention of hepatic coma Nicotine use disorder, F17.2 Tobacco use disorder Gastroesophageal reflux disease, unspecified whether esophagitis present Major depressive disorder, remission status unspecified, unspecified whether recurrent documented in this encounter [facility] note* Diagnosis Chronic hepatitis C without hepatic coma (HCC)- Primary Chronic hepatitis C without mention of hepatic coma Cirrhosis of liver with ascites, unspecified hepatic cirrhosis type (HCC) (HCC) Other ascites Nausea and vomiting, unspecified vomiting type documented in this encounter [facility] note* Diagnosis Low back pain, unspecified back pain laterality, unspecified chronicity, unspecified whether sciatica present documented in this encounter [facility] note* Diagnosis Skin sore- Primary Unspecified disorder of skin and subcutaneous tissue Gross hematuria Acute cystitis with hematuria Acute cystitis Anxiety with depression documented in this encounter [facility] note* Diagnosis Skin ulcer, limited to breakdown of skin (HCC)- Primary Excoriation (skin-picking) disorder MRSA (methicillin resistant Staphylococcus aureus) Methicillin resistant Staphylococcus aureus in conditions classified elsewhere and of unspecified site Local infection of skin and subcutaneous tissue Unspecified local infection of skin and subcutaneous tissue [facility] Encounter for screening mammogram for breast cancer documented in this encounter [facility] for referral (narrative)* Diagnostic Procedure Only (Routine) - Pending Review Specialty Diagnoses / Procedures Referred By Marivel cao Referred To Contact [facility] Diagnoses Encounter for screening mammogram for breast cancer Procedures EJANETH SCREENING SCREENING MAMMOGRAPHY BI 2-VIEW BREAST INC Dacia Rice MD [address] [place] [address] [facility] [address] [place] [address] Referral ID Status Reason Start Date Expiration Date Visits Requested Visits Authorized [id number] Pending Review Auto-Generat ed Referral 03/24/2022 04/23/2023 1 1 [facility] for referral (narrative)* Diagnostic Procedure Only (Routine) - Closed Specialty Diagnoses / Procedures Referred By Marivel cao Referred To Contact [facility] Diagnoses Encounter for screening mammogram for breast cancer Procedures JEANETH SCREENING SCREENING MAMMOGRAPHY BI 2-VIEW BREAST INC Dacia Rice MD [address] [place] [address] [facility] [address] [place] [address] Referral ID Status Reason Start Date Expiration Date V isits Requested Visits Authorized [id number] Closed Auto-Generate d Referral 03/24/2022 04/23/2023 1 1 [facility] for referral (narrative)* Diagnostic Procedure Only (Routine) - Authorized Specialty Diagnoses / Procedures Referred By Marivel cao Referred To Contact [facility] Diagnoses Encounter for screening mammogram for breast cancer Procedures JEANETH SCREENING SCREENING MAMMOGRAPHY BI 2-VIEW BREAST INC Dacia Rice MD [address] [place] [address] [facility] [address] [place] [address] Referral ID Status Reason Start Date Expiration Date Visits Requested Visits Authorized [id number] Authorized Auto-Generat ed Referral 02/29/2024 03/30/2025 1 1 [facility] for visit Narrative* Diagnostic Procedure Only (Routine) - Closed Specialty Diagnoses / Procedures Referred By Marivel t Referred To Contact [facility] Diagnoses Encounter for screening mammogram for breast cancer Procedures JEANETH SCREENING SCREENING MAMMOGRAPHY BI 2-VIEW BREAST INC CAD Dacia Acosta MD [address] [place] [address] [facility] [address] [place] [address] Referral ID Status Reason Start Date Expiration Date V isits Requested Visits Authorized [id number] Closed Auto-Generate d Referral 03/24/2022 04/23/2023 1 1 [facility] Summary Purpose Family History No Family History Records FoundNo Family History Records FoundNo Family History Records FoundNo Family History Records FoundNo Family History Records Found No data available for this section No Family History Records Found Advance Directives No Advanced Directives Records FoundDocuments on File Type Date Recorded 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 Advance Directive(s) 08/05/2018 8:00 PM Advance Directive(s) 08/04/2018 9:24 AM Documents on File Type Date Recorded 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 Advance Directive(s) 08/05/2018 8:00 PM [...] Date Activated Date Inactivated Comments Full Code 11/18/2023 5:41 PM 11/23/2023 8:49 PM Question Answer Comments Full Code Order Discussed With: Patient Date Activated Date Inactivated Comments 11/18/2023 5:41 PM 11/23/2023 8:49 PM Question Answer Comments Full Code Order Discussed With: Patient Date Activated Date Inactivated Comments 11/18/2023 5:41 PM 11/23/2023 8:49 PM Question Answer Comments Full Code Order Discussed With: Patient Health Concerns Infection Onset Date Last Indicated [...] vulgaris Procedures CONSULT TO DERMATOLOGY Tresa Wells APRN.LIFE AGENT [address] [place] [address] Referral ID Status Reason Start Date Expiration Date Visits Requested Visits Authorized [id number] Ref Not Required PCP Requested Referral 03/11/2022 03/11/2023 1 1 Specialty Diagnoses / Procedures Referred By Contac t Referred To Contact Saima Tan MD [address] [place] [address] Referral ID Status Reason Start Date Expiration Date V isits Requested Visits Authorized [id number] Pending Review 1 1 Specialty Diagnoses / Procedures Referred By Contac t Referred To Contact Dermatology Diagnoses Open wound of skin Procedures CONSULT TO DERMATOLOGY Williams Salvador PA-C [address] [place] [address] Referral ID Status Reason Start Date Expiration Date Visits Requested Visits Authorized [id number] Ref Not Required PCP Requested Referral 11/01/2023 10/31/2024 1 1 Additional Source Comments INFORMATION SOURCE (unrecogn ized section and content) DATE CREATED AUTHOR 09/03/2018 [facility] DATE CREATED AUTHOR AUTHOR'S ORGANIZ ATION 10/02/2023 [facility] DATE CREATED AUTHOR AUTHOR'S ORGANIZ ATION 11/25/2023 [facility] DATE CREATED AUTHOR AUTHOR'S ORGANIZ ATION 11/27/2023 [facility] DATE CREATED AUTHOR AUTHOR'S ORGANIZ ATION 03/05/2024 [facility] DATE CREATED AUTHOR AUTHOR'S ORGANJOSE ATION 03/30/2024 [facility] ([place]) Source Comments (unrecognize d section and content) In the event this informatio n is protected by the Federal Confidentiality of Alcohol and Drug Abuse Patient Records regulations: The Federal rules restrict any use of the information to criminally investigate or prosecute any alcohol or drug abuse patient.[facility] the event this information is protected by the Federal Confidentiality of Alcohol and Drug Abuse Patient Records regulations: The Federal rules restrict any use of the information to criminally investigate or prosecute any alcohol or drug abuse patient.[facility] the event this information is protected by the Federal Confidentiality of Alcohol and Drug Abuse Patient Records regulations: The Federal rules restrict any use of the information to criminally investigate or prosecute any alcohol or drug abuse patient.[facility] the event this information is protected by the Federal Confidentiality of Alcohol and Drug Abuse Patient Records regulations: The Federal rules restrict any use of the information to criminally investigate or prosecute any alcohol or drug abuse patient.[facility] the event this information is protected by the Federal Confidentiality of Alcohol and Drug Abuse Patient Records regulations: The Federal rules restrict any use of the information to criminally investigate or prosecute any alcohol or drug abuse patient.[facility] the event this information is protected by the Federal Confidentiality of Alcohol and Drug Abuse Patient Records regulations: The Federal rules restrict any use of the information to criminally investigate or prosecute any alcohol or drug abuse patient.[facility] the event this information is protected by the Federal Confidentiality of Alcohol and Drug Abuse Patient Records regulations: The Federal rules restrict any use of the information to criminally investigate or prosecute any alcohol or drug abuse patient.[facility] the event this information is protected by the Federal Confidentiality of Alcohol and Drug Abuse Patient Records regulations: The Federal rules restrict any use of the information to criminally investigate or prosecute any alcohol or drug abuse patient.[facility] the event this information is protected by the Federal Confidentiality of Alcohol and Drug Abuse Patient Records regulations: The Federal rules restrict any use of the information to criminally investigate or prosecute any alcohol or drug abuse patient.[facility] the event this information is protected by the Federal Confidentiality of Alcohol and Drug Abuse Patient Records regulations: The Federal rules restrict any use of the information to criminally investigate or prosecute any alcohol or drug abuse patient.[facility] the event this information is protected by the Federal Confidentiality of Alcohol and Drug Abuse Patient Records regulations: The Federal rules restrict any use of the information to criminally investigate or prosecute any alcohol or drug abuse patient.[facility] the event this information is protected by the Federal Confidentiality of Alcohol and Drug Abuse Patient Records regulations: The Federal rules restrict any use of the information to criminally investigate or prosecute any alcohol or drug abuse patient.[facility] the event this information is protected by the Federal Confidentiality of Alcohol and Drug Abuse Patient Records regulations: The Federal rules restrict any use of the information to criminally investigate or prosecute any alcohol or drug abuse patient.[facility] the event this information is protected by the Federal Confidentiality of Alcohol and Drug Abuse Patient Records regulations: The Federal rules restrict any use of the information to criminally investigate or prosecute any alcohol or drug abuse patient.[facility] the event this information is protected by the Federal Confidentiality of Alcohol and Drug Abuse Patient Records regulations: The Federal rules restrict any use of the information to criminally investigate or prosecute any alcohol or drug abuse patient.[facility] the event this information is protected by the Federal Confidentiality of Alcohol and Drug Abuse Patient Records regulations: The Federal rules restrict any use of the information to criminally investigate or prosecute any alcohol or drug abuse patient.[facility] the event this information is protected by the Federal Confidentiality of Alcohol and Drug Abuse Patient Records regulations: The Federal rules restrict any use of the information to criminally investigate or prosecute any alcohol or drug abuse patient.[facility] the event this information is protected by the Federal Confidentiality of Alcohol and Drug Abuse Patient Records regulations: The Federal rules restrict any use of the information to criminally investigate or prosecute any alcohol or drug abuse patient.[facility] the event this information is protected by the Federal Confidentiality of Alcohol and Drug Abuse Patient Records regulations: The Federal rules restrict any use of the information to criminally investigate or prosecute any alcohol or drug abuse patient.[facility] the event this information is protected by the Federal Confidentiality of Alcohol and Drug Abuse Patient Records regulations: The Federal rules restrict any use of the information to criminally investigate or prosecute any alcohol or drug abuse patient.[facility] the event this information is protected by the Federal Confidentiality of Alcohol and Drug Abuse Patient Records regulations: The Federal rules restrict any use of the information to criminally investigate or prosecute any alcohol or drug abuse patient.[facility] ColumbusIn the event this information is protected by the Federal Confidentiality of Alcohol and Drug Abuse Patient Records regulations: The Federal rules restrict any use of the information to criminally investigate or prosecute any alcohol or drug abuse patient.[facility] ColumbusIn the event this information is protected by the Federal Confidentiality of Alcohol and Drug Abuse Patient Records regulations: The Federal rules restrict any use of the information to criminally investigate or prosecute any alcohol or drug abuse patient.[facility] ColumbusIn the event this information is protected by the Federal Confidentiality of Alcohol and Drug Abuse Patient Records regulations: The Federal rules restrict any use of the information to criminally investigate or prosecute any alcohol or drug abuse patient.[facility] ColumbusIn the event this information is protected by the Federal Confidentiality of Alcohol and Drug Abuse Patient Records regulations: The Federal rules restrict any use of the information to criminally investigate or prosecute any alcohol or drug abuse patient.[facility] ColumbusIn the event this information is protected by the Federal Confidentiality of Alcohol and Drug Abuse Patient Records regulations: The Federal rules restrict any use of the information to criminally investigate or prosecute any alcohol or drug abuse patient.[facility] ColumbusIn the event this information is protected by the Federal Confidentiality of Alcohol and Drug Abuse Patient Records regulations: The Federal rules restrict any use of the information to criminally investigate or prosecute any alcohol or drug abuse patient.[facility] ColumbusIn the event this information is protected by the Federal Confidentiality of Alcohol and Drug Abuse Patient Records regulations: The Federal rules restrict any use of the information to criminally investigate or prosecute any alcohol or drug abuse patient.[facility] ColumbusIn the event this information is protected by the Federal Confidentiality of Alcohol and Drug Abuse Patient Records regulations: The Federal rules restrict any use of the information to criminally investigate or prosecute any alcohol or drug abuse patient.[facility] ColumbusIn the event this information is protected by the Federal Confidentiality of Alcohol and Drug Abuse Patient Records regulations: The Federal rules restrict any use of the information to criminally investigate or prosecute any alcohol or drug abuse patient.[facility] ColumbusIn the event this information is protected by the Federal Confidentiality of Alcohol and Drug Abuse Patient Records regulations: The Federal rules restrict any use of the information to criminally investigate or prosecute any alcohol or drug abuse patient.[facility] ColumbusIn the event this information is protected by the Federal Confidentiality of Alcohol and Drug Abuse Patient Records regulations: The Federal rules restrict any use of the information to criminally investigate or prosecute any alcohol or drug abuse patient.[facility] ColumbusIn the event this information is protected by the Federal Confidentiality of Alcohol and Drug Abuse Patient Records regulations: The Federal rules restrict any use of the information to criminally investigate or prosecute any alcohol or drug abuse patient.[facility] ColumbusIn the event this information is protected by the Federal Confidentiality of Alcohol and Drug Abuse Patient Records regulations: The Federal rules restrict any use of the information to criminally investigate or prosecute any alcohol or drug abuse patient.[facility] ColumbusIn the event this information is protected by the Federal Confidentiality of Alcohol and Drug Abuse Patient Records regulations: The Federal rules restrict any use of the information to criminally investigate or prosecute any alcohol or drug abuse patient.[facility] ColumbusIn the event this information is protected by the Federal Confidentiality of Alcohol and Drug Abuse Patient Records regulations: The Federal rules restrict any use of the information to criminally investigate or prosecute any alcohol or drug abuse patient.[facility] ColumbusIn the event this information is protected by the Federal Confidentiality of Alcohol and Drug Abuse Patient Records regulations: The Federal rules restrict any use of the information to criminally investigate or prosecute any alcohol or drug abuse patient.[facility] ColumbusIn the event this information is protected by the Federal Confidentiality of Alcohol and Drug Abuse Patient Records regulations: The Federal rules restrict any use of the information to criminally investigate or prosecute any alcohol or drug abuse patient.[facility] [place] Reason for Visit (unrecogniz ed section and content) Reason Comments Chest Congestion LANCE, cough, sore thro st, body aches x 6 day Reason Comments Results Reason Onset Date Comments [...] Specialty Diagnoses / Procedures Referred By Marivel t Referred To Contact Diagnoses Small bowel obstruction (HCC) Procedures . Cindi Salas MD [address] [address] [facility] [address] [place] [id number] Referral ID Status Reason Start Date Expiration Date Visits Re quested Visits Authorized [id number] 1 Reason Comments Derm Problem Sore on chin, states has been there for years, she has a hard time not touching it, painful Reason Comments Patient Update Reason Onset Date Comments Transition Of Care 11/24/2023 TCM Pharmacy- Hospital discharge 11/23/23 Reason Comments Transition Of Care Reason Comments Appointment Patient Update Reason Comments ER F/U WC multiple times f rom 10/2023-11/3023: abdominal pain, cirrhosis of liver, ascites Reason Onset Date Comments Refill Request 01/19/2024 Reason Comments Same Day Appointment chin sore x 1 month and left foot sores x 4 days Reason Comments Hematuria Reason Comments Rash Chin /left foot Care Teams (unrecognized sec tion and content) Rack Pusher Relationship Specialty Start Date End Date Dacia Acosta MD [address] [place], [place] [id number] PCP - General Family Practice 08/24/10 Rack Pusher Relationship Specialty Start Date End Date Dacia Acosta MD [address] [place] [address] PCP - General Family Practice 08/24/10 Rack Pusher Relationship Specialty Start Date End Date Dacia Acosta MD [address] [facility] [place] [address] PCP - General Family Practice 08/24/10 Rack Pusher Relationship Specialty Start Date End Date Dacia Acosta MD [address] [facility] [place] [address] PCP - General Family Practice 08/24/10 Rack Pusher Relationship Specialty Start Date End Date Dacia Acosta MD [address] [facility] [place] [address] PCP - General Family Practice 08/24/10 Rack Pusher Relationship Specialty Start Date End Date Dacia Acosta MD [address] [facility] [place] [address] PCP - General Family Practice 08/24/10 Rack Pusher Relationship Specialty Start Date End Date Dacia Acosta MD [address] [facility] [place] [address] PCP - General Family Practice 08/24/10 Rack Pusher Relationship Specialty Start Date End Date Dacia Acosta MD [address] [facility] [place] [address] PCP - General Family Practice 08/24/10 Rack Pusher Relationship Specialty Start Date End Date Dacia Acosta MD [address] [facility] [place] [address] PCP - General Family Practice 08/24/10 Rack Pusher Relationship Specialty Start Date End Date Dacia Acosta MD [address] [facility] [place] [address] PCP - General Family Practice 08/24/10 Rack Pusher Relationship Specialty Start Date End Date Dacia Acosta MD [address] [facility] [place] [address] PCP - General Family Medicine 08/24/10 Rack Pusher Relationship Specialty Start Date End Date Dacia Acosta MD [address] [facility] [place] [address] PCP - General Family Medicine 08/24/10 Rack Pusher Relationship Specialty Start Date End Date Dacia Acosta MD [address] [facility] [place] [address] PCP - General Family Medicine 08/24/10 Rack Pusher Relationship Specialty Start Date End Date Dacia Acosta MD [address] [facility] [place] [address] PCP - General Family Medicine 08/24/10 Rack Pusher Relationship Specialty Start Date End Date Dacia Acosta MD [address] [facility] [place] [address] PCP - General Family Medicine 08/24/10 Rack Pusher Relationship Specialty Start Date End Date Dacia Acosta MD [address] [facility] [place] [address] PCP - General Family Medicine 08/24/10 Rack Pusher Relationship Specialty Start Date End Date Dacia Acosta MD [address] [facility] [place] [address] PCP - General Family Medicine 08/24/10 Rack Pusher Relationship Specialty Start Date End Date Dacia Acosta MD [address] [facility] [place] [address] PCP - General Family Medicine 08/24/10 Rack Pusher Relationship Specialty Start Date End Date Dacia Acosta MD [address] [facility] [place] [address] PCP - General Family Medicine 08/24/10 Rack Pusher Relationship Specialty Start Date End Date Dacia Acosta MD [address] [place] [address] PCP - General Family Medicine 08/24/10 Rack Pusher Relationship Specialty Start Date End Date Dacia Acosta MD [address] [place] [address] PCP - General Family Medicine 08/24/10 Rack Pusher Relationship Specialty Start Date End Date Dacia Acosta MD [address] [place] [address] PCP - General Family Medicine 08/24/10 Priscilla Rodriguez RN [address] [place] [address] Primary Care [employer] Internal [facility] 11/24/23 Rack Pusher Relationship Specialty Start Date End Date Dacia Acosta MD [address] [place] [address] PCP - General Family Medicine 08/24/10 Priscilla Rodriguez RN [address] [place] [address] Primary Care [employer] Internal Medicine 11/24/23 Rack Pusher Relationship Specialty Start Date End Date Dacia Acosta MD [address] [place] [address] PCP - General Family Medicine 08/24/10 Priscilla Rodriguez RN [address] [place] [address] Primary Care [employer] Internal Medicine 11/24/23 Rack Pusher Relationship Specialty Start Date End Date Dacia Acosta MD [address] [place] [address] PCP - General Family Medicine 08/24/10 Priscilla Rodriguez, NASH [address] [facility] [place] [address] Primary Care [employer] Internal Medicine 11/24/23 Rack Pusher Relationship Specialty Start Date End Date Dacia Acosta MD [address] [place] [address] PCP - General Family Medicine 08/24/10 Priscilla Rodriguez RN [address] [place] [address] Primary Care [employer] Internal Medicine 11/24/23 12/07/23 Rack Pusher Relationship Specialty Start Date End Date Dacia Acosta MD [address] [place] [address] PCP - General Family Medicine 08/24/10 Rack Pusher Relationship Specialty Start Date End Date Dacia Acosta MD [address] [place] [address] PCP - General Family Medicine 08/24/10 Rack Pusher Relationship Specialty Start Date End Date Dacia Acosta MD [address] [place] [address] PCP - General Family Medicine 08/24/10 Rack Pusher Relationship Specialty Start Date End Date Dacia Acosta MD [address] [place] [address] PCP - General Family Medicine 08/24/10 Rack Pusher Relationship Specialty Start Date End Date Dacia Acosta MD [address] [place] [address] PCP - General Family Medicine 08/24/10 Rack Pusher Relationship Specialty Start Date End Date Dacia Acosta MD [address] [place], [place] [address] PCP - General Family Medicine 08/24/10 Rack Pusher Relationship Specialty Start Date End Date Dacia Acosta MD [address] [place], [place] [address] PCP - General Family Medicine 08/24/10 Scheduled Active and Recently Administ ered Medications (unrecognized section and content) Medication Order 09/13/2023 09/14/2023 09/15/2023 desvenlafaxine (Pristiq) 24 hr tablet 100 mg 100 mg, Oral, Daily, First dose on 09/10/23 at 0900, Do not crush, chew, or split. 0928 (Given - Provider: Kylah Parks RN) 0831 (Given - Provider: Kylah Parks RN) 0945 (Given - Provider: Ricardo Landry, NASH) doxepin (SINEquan) capsule 10 mg 10 mg, Oral, Nightly, First dose on 09/10/23 at 2100 2050 (Given - Provider: Jt Parsons, NASH) 2108 (Given - Provider: Haritha Martinez, NASH) gabapentin (Neurontin) capsule 100 mg 100 mg, Oral, 2 times daily, First dose on 09/10/23 at 0900 0928 (Given - Provider: Kylah Parks RN)2048 (Given - Provider: Jt Parsons, NASH) 0831 (Given - Provider: Kylah Parks, NASH)2003 (Given - Provider: Haritha Martinez, NASH) 0945 (Given - Provider: Ricardo Landry RN) lactulose (Chronulac) 10 GM/15ML solution 20 g(Linked Group 1) 20 g, Oral, 3 times daily, First dose on 09/10/23 at 0900 0928 (Given - Provider: Kylah Parks RN)1338 (Given - Provider: Kylah Parks RN)2048 (Given - Provider: Jt Parsons RN) 0839 (Given - Provider: Kylah Parks RN)1443 (Given - Provider: Kylah Parks RN)2003 (Given - Provider: Haritha Martinez, NASH) 0945 (Given - Provider: Ricardo Landry RN)133 (Given - Provider: Ricardo Landry RN) lactulose (Chronulac) 200 g in sterile water 1,000 mL enema(Linked Group 1) 1 enema, Rectal, 3 times daily, First dose on Tue09/10/23 at 0900, Mix 200GM (300mL) of lactulose with 700mL of sterile water for total volume of 1000mL - If Pt NPO or unable to tolerate PO intake 28 (See Alternative - Provider: Kylah Parks RN)1337 (See Alternative - Provider: Kylah Parks RN)2048 (See Alternative - Provider: Jt Parsons RN) 0839 (See Alternative - Provider: Kylah Parks RN)144 (See Alternative - Provider: Kylah Parks RN)2003 (See Alternative - Provider: Haritha Martinez RN) 0945 (See Alternative - Provider: Ricardo Landry RN)133 (See Alternative - Provider: Ricardo Landry RN) mrumpvug-aedispatop-vi lymyxin (Neosporin) ointment (COMPLETED) Topical, Once, On Tue09/13/23 at 0345, For 1 dose, Apply to 0539 (Given - Provider: Jt Parsons RN) pfhsuqeo-oofdxngenf-ce lymyxin (Neosporin) ointment Topical, 3 times daily, First dose on Tue09/14/23 at 0915, Apply to affected area. 1002 (Given - Provider: Kylah Parks RN)1442 (Given - Provider: Kylah Parks RN)2110 (Given - Provider: Haritha Martinez RN) 0946 (Given - Provider: Ricardo Landry RN)1400 (Canceled Entry - Provider: Automatic Discharge Provider - Comment: Automatically canceled at discontinue of medication order) pantoprazole (ProtoNix) 40 mg in sodium chloride (PF) 0.9 % 10 mL injection 40 mg, IntraVENous, Administer over 2 Minutes, Daily before breakfast, First dose on 09/10/23 at 0700, Reconstitute with 10 ml NS. Vial expires 2 hrs after reconstitution. 0538 (Not Given - Provider: Jt Parsons RN - Reason: Loss of IV access) 0608 (Given - Provider: Jt Parsons RN) 06 (Given - Provider: Haritha Martniez, NASH) potassium chloride (Klor-Con) packet 40 mEq (COMPLETED) 40 mEq, Oral, Once, On Kiersten 09/15/23 at 1030, For 1 dose, Dissolve each packet in 4 ounces of water = 5 mEq per 1 oz fluid., Indications: Hypokalemia 1100 (Given - Provider: Ricardo Landry, RN) sodium bicarbonate tablet 650 mg 650 mg, Oral, 2 times daily, First dose on 09/11/23 at 1400 0928 (Given - Provider: Kylah Parks RN)2048 (Given - Provider: Jt Parsons RN) 08 (Given - Provider: Kylah Parks, NASH)2003 (Given - Provider: Haritha Martinez, NASH) 09 (Given - Provider: Ricardo Landry RN) traZODone (Desyrel) tablet 100 mg 100 mg, Oral, Nightly, First dose on 09/10/23 at 2100 2048 (Given - Provider: Jt Parsons RN) 2003 (Given - Provider: Haritha Martinez, NASH) PRN Medication Order 09/13/2023 09/14/2023 09/15/2023 acetaminophen [...] at 0547 2117 (Given - Provider: Haritha Martinez, NASH) morphine injection 2 mg 2 mg, IntraVENous, [...] Provider: Kylah Parks RN)2117 (Given - Provider: Jt Parsons, NASH) 0401 (Given - Provider: Jt Parsons RN)0832 (Given - Provider: Kylah Parks, NASH)1231 (Given - Provider: Kylah Parks RN)1953 (Given - Provider: Haritha Martinez, NASH) 0157 (Given - Provider: Haritha Martinez, NASH)0626 (Given - Provider: Haritha Martinez, NASH) naloxone (Narcan) injection 0.4 mg 0.4 mg, IntraVENous, Every 5 min PRN, opioid reversal, respiratory depression, Starting on Tue09/14/23 at 0915, +++ For RR <10, pinpoint pupils, over sedation for opioid reversal - MUST notify fire prevention inspector provider immediately after first dose, may give [...] Kylah Parks RN) 0404 (Given - Provider: Jt Parsons RN)1231 (Given - Provider: Kylah Parks [...] Parks RN) 0404 (See Alternative - Provider: Jt Parsons RN)123 (See Alternative - Provider: Kylah Parks RN)1952 (See Alternative - Provider: Haritha Martinez RN) 0156 (See Alternative - Provider: Haritha Martinez, NASH) sodium chloride ([place]) 0.65 % nasal spray 2 spray 2 spray, Each Nostril, Every 4 hours PRN, nasal dryness, Starting on Tue09/13/23 at 0337 0539 (Given - Provider: Jt Parsons RN)1336 (Given - Provider: Kylah Parks [...] BE BASED ON THE PRIMARY CLINICAL RECORDS. [facility] [employer] [facility]. provides no warranty or guarantee of the accuracy or completeness of information in this document.
[2024-04-11 22:07] VITALS: BP 119/99; PULSE 56; RESP 16; TEMP 36.6; O2SAT 99
[2024-04-11 23:10] VITALS: BP 109/67; PULSE 54; RESP 18; TEMP 36.8; O2SAT 99
[2024-04-11 23:12] VITALS: BMI 29.7
--- OUTSIDE RECORDS SUMMARY | 2024-04-11 23:28 | XMS RPT_ITS | CCD ---
Author Organization [facility] Inform ion Partnership [facility] Care Team Providers Care Photoengraving Supervisor Name Role Phone ABDLUIS MIGUEL NICKMEH Unavailable Unav ailable LORENAMONIQUE SANCHEZJANAY RENAY Unavailable Unav ailable Dacia Acosta MD Primary Care Provider Dacia Acosta MD Primary Care Provider Dacia Acosta MD Primary Care Provider Dacia Acosta MD Primary Care Provider [phone] Unavailable Primary Care Provider UnavailANDERSON Tucker Consulting Unavailable CINDI SALAS Admitting Unavailable SAIMA TAN Attending Unavailable Priscilla Rodriguez RN Unavailable DACIA ACOSTA Primary Care Unavailable KOKO RUIZ [...] Care Unavailable DACIA ACOSTA Primary Care Unavailable ASHANTI SQUIRES Attending Unavailable DACIA ACOSTA Primary Care Unavailable MERVIN MATTHEWS Attending Unavailable SELF Referring Unavailable AHMET DOOLEY, DR PEDERSON Primary Care Physician DR DACIA ACOSTA MD Primary Care Unavailab le FROMMELT DO, CARLA Attending [facility] Allergies Allergy Classification Reported Allergen(s) Allergy Type Date of Onset Reaction(s) Facility Aminoketones (1 source) buPROPion; Translations: [bupropion] Drug Allergy [facility] Aspirin (1 source) Aspirin; Translations: [aspirin] Drug Allergy Weal (disorder) [facility] Opioid Agonists (1 source) Codeine; Translations: [codeine] Drug Allergy Weal (disorder) [facility] (20 sources) Aspirin; Translations: [ASPIRIN] Drug Allergy 5 [facility] Rep[facility] (20 sources) buPROPion; Translations: [BUPROPION HCL] Drug Allergy 3 Other: See Comments [facility] (20 sources) Codeine; Translations: [CODEINE] Drug Allergy 5 Rash, Hives [facility] (20 sources) buPROPion; Translations: [BUPROPION] Drug Allergy 3 Other: See Comments [facility] (20 sources) predniSONE; Translations: [PREDNISONE] Drug Allergy 9 Rash [facility] Work Phone: (3 sources) Prednisone Propensity to adverse reactions 9 [facility] Medications Current Medications Medication Drug Class(es) Dates Sig (Normalized) Sig (Original) [id number] 200 actuat albuterol 0.09 mg/actuat metered dose [...] on above: Take 1 capsule by mo [facility] three times daily for 10 days. [...] 5 days. Take 1 capsule by mo [facility] twice daily for 5 days. Take [...] on above: Take 1 capsule by mo [facility] two times a day with meals [...] on above: Take 3 tablets by mo [facility] once daily for 3 days, THEN [...] tablet 650 mg 20 ml albumin human, skilled nursing 250 mg/ml injection (2 sources) Human Serum Albumin Start: 09-10-2023 End: 09-10-2023 albumin human 25 % IV solution 50 g bacitracin 0.5 unt/mg / neomycin 0.0035 mg/mg / polymyxin b 10 unt/mg topical ointment (4 sources) Aminoglycoside Antibacterial, Polymyxin-class Antibacterial Start: 09-14-2023 End: 09-15-2023 neomycin-bacitraci n-polymyxin (Neosporin) ointment Start: 09-13-2023 End: 09-13-2023 wzomiuit-shorvqolgs-rdtrjfqo n (Neosporin) ointment brompheniramine maleate 0.4 mg/ml / dextromethorphan hydrobromide 2 mg/ml / pseudoephedrine hydrochloride 6 mg/ml oral solution (8 sources) alpha-Adrenergic Agonist, Uncompetitive Z-gryhmt-A-aspartate Receptor Antagonist, Sigma-1 Agonist Start: 01-11-2022 End: 05-10-2022 take 5-10 mL by mouth every six hours as needed Pwkamdprhcgpsya-Zfokcysxa-EY (BROMFED DM) 2-30-10 mg/5 mL syrup Take [...] Active Start: 09-02-2021 take 1 capsule by [facility] every week cholecalciferol, Vitamin D3, (VITAMIN D3) 1,250 mcg (50,000 unit) cap capsule Take 1 capsule by mouth one time a week. 12 capsule 3 09/02/2021 Active Comment on above: Take 1 capsule by [facility] one time a week. cloNIDine hydrochloride 0.1 [...] Comment on above: Take 1 capsule by [facility] daily at bedtime. iopamidol (Isovue-370) 76 % [...] sources) Start: 09-13-2023 End: 09-15-2023 sodium chloride ([place]) 0.65 % nasal spray 2 spray Start: [...] 0.0 10 3/mcL Normal 0.0-0.2 [facility] ([place]) Comment on above: Performed By: #### B MP, MORPH, GFR, CBC, ADIFF, MDW, ANEU #### [address] [address] Basophils/100 WBC (Bld) 0.4 % Normal 0.0-2.5 [facility] ([place]) Comment on above: Performed By: #### B MP, MORPH, GFR, CBC, ADIFF, MDW, ANEU #### [address] [address] Eosinophil, Absolute 0.3 10 3/mcL [facility]0-0.4 [facility] ([place] Comment on above: Performed By: #### B MP, MORPH, GFR, CBC, ADIFF, MDW, ANEU #### [address] [address] Eosinophils/100 WBC (Bld) 3.8 % Normal 0.0-7.0 [facility] ([place]) Comment on above: Performed By: #### B MP, MORPH, GFR, CBC, ADIFF, MDW, ANEU #### [address] [address] Lymphocyte, Absolute 1.3 10 3/mcL Normal 0.8-3.9 [facility] ([place] Comment on above: Performed By: #### B MP, MORPH, GFR, CBC, ADIFF, MDW, ANEU #### [address] [address] Lymphocytes/100 WBC (Bld) 19.3 % Normal 10.0-50.0 [facility] ([place]) Comment on above: Performed By: #### B MP, MORPH, GFR, CBC, ADIFF, MDW, ANEU #### [address] [address] Monocyte, Absolute 0.6 10 3/mcL Normal 0.2-1.0 [facility] ([place]) Comment on above: Performed By: #### B MP, MORPH, GFR, CBC, ADIFF, MDW, ANEU #### [address] [address] Monocytes/100 WBC (Bld) 9.1 % Normal 1.7-13.0 [facility] ([place]) Comment on above: Performed By: #### B MP, MORPH, GFR, CBC, LUIS BERTRAND, ANEU #### [place] [address] [place], [place] [address] Neutrophils/100 WBC (Bld) 67.4 % Normal 37.0-80.0 [facility] ([place]) Comment on above: Performed By: #### B MP, MORPH, GFR, CBC, LUIS BERTRAND, ANEU #### [address] [address] .GFRon 03-23-2024 GFR Non- 64 ml/min/1.73sqm Normal [facility] ([place]) Comment on above: Result Comment: GFR Population [...] MORPH, GFR, CBC, LUIS BERTRAND, ANEU #### [place] [address] [place], [place] [address] GFR 77 ml/min/1.73sqm Normal [facility] ([place]) Comment on above: Result Comment: GFR Population [...] MORPH, GFR, CBC, ADIFF, MDW, ANEU #### [place] [id number] .MDWon 03-23-2024 Monocyte Distribution Width 26.42 High 0.00-20.00 [facility] ([place]) Comment on above: Result Comment: The predictive value of MDW for identifying sepsis in patients with hematological abnormalities has not been established Performed By: #### B MP, MORPH, GFR, CBC, ADIFF, W, ANEU #### [place] [address] .Morphon 03-23-2024 Platelet Estimate Decreased Normal [facility] ([place]) Comment on above: Performed By: #### B MP, MORPH, GFR, CBC, ADIFF, MDW, ANEU #### [place] [address] .NEUABSon 03-23-2024 Neutrophil, Absolute 4.6 10 3/mcL Normal 2.9-6.2 [facility] ([place] Comment on above: Performed By: #### B MP, MORPH, GFR, CBC, ADIFF, MDW, ANEU #### [place] [id number] Melody 03-23-2024 Ammonia (P) [Moles/Vol] 42 umol/L High 11-32 [facility] ([place]) Comment on above: Performed By: #### A MM ####[place] [address] BMPon 03-23-2024 BUN/Creatinine Ratio 14 ratio Normal 7-27 [facility] ([place]) Comment on above: Performed By: #### B MP, MORPH, GFR, CBC, ADIFF, MDW, ANEU #### [place] [address] Calcium [Mass/Vol] 8.4 mg/dL Normal 8.4-10.2 [facility] ([place]) Comment on above: Performed By: #### B MP, MORPH, GFR, CBC, LUIS BERTRAND, ANEU #### [address] [address] Chloride [Moles/Vol] 106 mmol/L Normal 98-107 [facility] ([place]) Comment on above: Performed By: #### B MP, MORPH, GFR, CBC, ELZA, LUIS, ANEU #### [address] [address] CO2 [Moles/Vol] 24 mmol/L Normal 22-29 [facility] ([place]) Comment on above: Performed By: #### B MP, MORPH, GFR, CBC, LUIS BERTRAND, ANEU #### [address] [address] Creatinine [Mass/Vol] 0.93 mg/dL Normal 0.55-1.02 [facility] ([place]) Comment on above: Performed By: #### B MP, MORPH, GFR, CBC, LUIS BERTRAND, ANEU #### [address] [address] Electrolyte Balance 8.0 mEq/L Normal 4.0-15.0 Count includes the [facility] ([place]) Comment on above: Performed By: #### B MP, MORPH, GFR, CBC, LUIS BERTRAND, ANEU #### [address] [address] Glucose [Mass/Vol] 100 mg/dL Normal 70-105 [facility] ([place]) Comment on above: Performed By: #### B MP, MORPH, GFR, CBC, LUIS BERTRAND, ANEU #### [address] [address] Potassium [Moles/Vol] 3.6 mmol/L Normal 3.5-5.1 [facility] ([place]) Comment on above: Performed By: #### B MP, MORPH, GFR, CBC, LUIS BERTRAND, ANEU #### [address] [address] Sodium [Moles/Vol] 138 mmol/L Normal 136-145 [facility] ([place]) Comment on above: Performed By: #### B MP, MORPH, GFR, CBC, LUIS BERTRAND, ANEU #### [address] [address] Urea nitrogen [Mass/Vol] 13 mg/dL Normal 7-18 [facility] ([place]) Comment on above: Performed By: #### B MP, MORPH, GFR, CBC, LUIS BERTRAND, ANEU #### [address] [address] CBCon 03-23-2024 Erythrocyte distribution width (RBC) [Ratio] 20.9 % High 11.5-14.5 [facility] ([place]) Comment on above: Performed By: #### B MP, MORPH, GFR, CBC, LUIS BERTRAND, ANEU #### [address] [address] Hematocrit (Bld) [Volume fraction] 33.8 % Low 37.0-47.0 [facility] ([place]) Comment on above: Performed By: #### B MP, MORPH, GFR, CBC, LUIS BERTRAND, ANEU #### [address] [address] Hgb 11.7 G/dL Low 12.0-16.0 [facility] ([place]) Comment on above: Performed By: #### B MP, MORPH, GFR, CBC, LUIS BERTRAND, ANEU #### [address] [address] MCH (RBC) [Entitic mass] 29.4 pg Normal 27.0-31.2 [facility] ([place]) Comment on above: Performed By: #### B MP, MORPH, GFR, CBC, LUIS BERTRAND, ANEU #### [address] [address] MCHC 34.5 G/dL Normal 33.0-37.0 [facility] ([place]) Comment on above: Performed By: #### B MP, MORPH, GFR, CBC, ADIFF, MDW, ANEU #### [address] [address] MCV (RBC) [Entitic vol] 85.3 fL Normal 80.0-94.0 [facility] ([place]) Comment on above: Performed By: #### B MP, MORPH, GFR, CBC, ADIFF, MDW, ANEU #### [place] [address] Platelet 64 10 3/mcL Low 130-400 [facility] ([place]) Comment on above: Performed By: #### B MP, MORPH, GFR, CBC, ADIFF, MDW, ANEU #### [place] [address] Platelet mean volume (Bld) [Entitic vol] 8.2 fL Normal 7.4-10.4 [facility] ([place]) Comment on above: Performed By: #### B MP, MORPH, GFR, CBC, ADIFF, MDW, ANEU #### [place] [phone] RBC 3.97 10 6/mcL Low 4.20-5.40 [facility] ([place]) Comment on above: Performed By: #### B MP, MORPH, GFR, CBC, ADIFF, MDW, ANEU #### [place] [address] WBC 6.7 10 3/mcL Normal 4.6-10.8 [facility] ([place]) Comment on above: Performed By: #### B MP, MORPH, GFR, CBC, ADIFF, MDW, ANEU #### [address] [address] [address] SOFT TISSUE NECK W/ CONTR David [...] 03/23/2024 5:09:20 PM Ordering Provider: HAYDER Lagos [facility] ([place]) LABORATORYOrdered By: SYSTEM SYSTEM on 03-23-2024 Ammonia [...] Routine cultures are held for 5 days. 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 Melisa Guerrero (more content not included)... Normal [facility] 02-02-2024 [facility] Telephone ([place]) CAROLINA HIGHTOWER ([id number]) 1975 F Date Time Provider Department 02/02/24 ASHANTI SQUIRES During your visit today, we recorded the following information about you: Ashanti Squires PA-C 02/02/2024 1:47 PM Signed Please let patient know that her culture did show MRSA on her chin. I have sent a prescription for doxycycline 1 BID to the [facility]. Please use sunscreen/sun protection while on this [...] [facility] [place] Madonna Lim Ashanti Whitaker PA-C 02/02/2024 4:44 [...] lactulose (DUPH (more content not included)... Normal [facility] Bacteria Ur Culton 4 Bacteria identified Cx [...] , Intermediate >32 , Resistant >64 Abnormal [facility] Comment on above: Performed By: #### 6 30-4 ####[facility] LABCLIA [id number] [employer] [facility] [place] [address] [place] Bacteria Wnd Culton 01-31-20 24 Bacteria identified Cx Nom (Wound) ORGANISM ID: 1 Rare Staphylococcus aureus Refer to specimen collected on \X09\01/31/2024 11:21 AM ([id number]) GRAM STAIN: No organisms seen No Polymorphonuclear Leukocytes Abnormal [facility] Comment on above: Performed By: #### 6 462-6 ####[facility] LABCLIA [id number] [employer] [facility] [place] [address] [place] Bacteria identified Cx [...] , Intermediate >4 , Resistant >8 Abnormal [facility] Comment on above: Performed By: #### 6 462-6 ####[facility] LABCLIA [id number] [place] [id number] [place] CNOVon 01-31-2024 CNOV Office Visit (FAMPWS ) CAROLINA HIGHTOWER ([id number]) 1975 F Date Time Provider Department 01/31/24 10:00 AM ASHANTI SQUIRES [facility] During your visit today, we recorded the [...] is scheduled to dermatology next week in [place]. She admits to previous MRSA infection in [...] to cross (more content not included)... Normal [facility] UA DIP, URINE (POC)on 2023 BILIRUBIN UA (POCT) Negative Negative [facility] CLARITY UA (POCT) Cloudy [facility] COLOR UA (POCT) Dark yellow [facility] GLUCOSE UA (POCT) Negative Negative mg/dL [facility] Hemoglobin Ql (U) Large Abnormal Negative [facility] Interpretation and review of laboratory results Abnormal [facility] KETONE UA (POCT) Negative Negative mg/dL [facility] LEUKOCYTES UA (POCT) Small Abnormal Negative [facility] NITRITE UA (POCT) Positive Abnormal Negative [facility] PH UA (POCT) 6.0 4.5 - 8.0 [facility] Protein Ql (U) 100 mg/dL Abnormal Negative [facility] SPECIFIC GRAVITY UA (POCT) 1.025 1.005 - 1.030 [facility] UROBILINOGEN UA (POCT) 2.0 Abnormal Normal E.U./dL [facility] Location:[address], [place], [place], [id number] [place] [address] POINT OF CARE [facility] CNCOon 12-27-2023 CNCO Letter Text Normal [facility] CNOVon 12-13-2023 CNOV Office Visit (FAMPWS ) CAROLINA HIGHTOWER ([id number]) 1975 F Date Time Provider Department 12/13/23 1:00 PM MERVIN MATTHEWS During your visit today, we recorded the following information about you: Temperature Pulse Respiration Blood pressure 97.9 degrees 68/minute 16/minute 91/62 Weight 81.7 kg Mervin Matthews APRN.CNP 12/13/2023 2:13 PM Signed Chief Complaint Patient presents with: ER F/U: [facility] multiple times from 10/2023-11/3023: abdominal pain, cirrhosis of liver, ascites HPI Carolina Hightower is a 48 year old female who presents here today for Hospital Discharge Follow up. Patient is here for emergency room and hospital follow-up. Patient has had multiple trips to the emergency room at [facility]. This is ranged from October 2023 [...] she has diffuse abdominal pain and her instrument lens inspector cannot fit her into his schedule, she [...] that she needs to return to her instrument lens inspector for evaluation. I discussed that if she [...] APRN.CNP This note was partly generated using [employer] voice recognition dictation and may contain some [...] Reason for Visit: ER F/U [41] Cmt: [facility] multiple times from 10/2023-11/3023: abdominal pain, cirrhosis [...] 1 tablet (more content not included)... Normal [facility] 12-12-2023 CNPN Telephone ([facility]) CAROLINA HIGHTOWER ([id number]) 1975 F Date Time Provider Department 12/12/23 DACIA ACOSTA [facility] During your visit today, we recorded [...] Encounter Status:Closed by JERI MESA on 12/12/23 [facility] CNCOon 12-09-2023 CNCO Letter Text [facility] CNPNon 11-28-2023 CNPN Telephone (FAMPWS) CAROLINA HIGHTOWER ([id number]) 1975 F Date Time Provider Department 11/28/23 DACIA ACOSTA During your visit today, we recorded the following information about you: Vanessa Babcock RN 11/28/2023 3:41 PM Signed Patient calling and asking about urine results. Please review and advise, ANSH Corcoran Mark D, MD 11/28/2023 3:46 PM [...] Status:Closed by MELISA VICK MA on 11/28/23 [facility] CNOVon 11-26-2023 CNOV Office Visit (FAMPWS ) CAROLINA HIGHTOWER ([id number]) 1975 F Date Time Provider Department 11/26/23 10:20 AM DACIA ACOTSAPWS During your visit today, we recorded the following information about you: Pulse Respiration Blood pressure Weight 90/minute 20/minute 128/70 83.4 kg Dacia Acosta MD 11/26/2023 11:03 AM Signed Transitional Care Management [facility] Eligibility Documentation Program: Transitional Care Management Status: [...] Pt here today for a 7 day [facility] Hospital follow up. Pt admitted into [facility] on 11/18/23 for abdominal pain and [...] she has been evaluated multiple times at [facility] for similar symptoms. Paracentesis has been [...] IV Rocephin tomorrow, patient had paracentesis in [facility] without any significant results, he had paracentesis yesterday results are undetermined. Therefore 1 more day of IV Rocephin day tomorrow and then she finished antibiotics, continuing meantime Taper down steroids and prophylactic PPI *Patient is started having bowel movement *Review blood work results unremarkable except for HANDH low but stable current hemoglobin (more content not included)... Normal [facility] Urinalysis complete panel (U )on 11-26-2023 Bacteria LM.HPF (Urine sed) [#/Area] Negative Normal Negative [facility] Comment on above: Order Comment: Speci men Type: URINE SPECIMENOrdering Facility: [facility] Address: [facility] [place] [address] Performed By: #### 2 4356-8 ####[facility] LABCLIA [id number] [place] [address] [place] Bilirubin Ql (U) Negative Normal Negative [facility] Comment on above: Order Comment: Speci men Type: URINE SPECIMENOrdering Facility: [facility] Address: [address] [place] [address] Performed By: #### 2 4356-8 ####[facility] LABCLIA [id number] [place] [address] [place] CALCIUM OXALATE CRYSTALS (UA) Few Abnormal None Seen [facility] Comment on above: Order Comment: Speci men Type: URINE SPECIMENOrdering Facility: [facility] Address: [address] [place] [address] Performed By: #### 2 4356-8 ####[facility] LABCLIA [id number] [place] [address] [place] Clarity (Unsp spec) Cloudy Abnormal Clear [facility] Comment on above: Order Comment: Speci men Type: URINE SPECIMENOrdering Facility: [facility] Address: [address] [place] [address] Performed By: #### 2 4356-8 ####[facility] LABCLIA [id number] [place] [address] [place] Color (U) Dark Yellow Abnormal Yellow [facility] Comment on above: Order Comment: Speci men Type: URINE SPECIMENOrdering Facility: [facility] Address: [address] [place] [address] Performed By: #### 2 4356-8 ####[facility] LABCLIA [id number] [place] [address] [place] Epithelial cells LM.HPF (Urine sed) [#/Area] Few Normal [facility] Comment on above: Order Comment: Speci men Type: URINE SPECIMENOrdering Facility: [facility] Address: [address] [place] [address] Performed By: #### 2 4356-8 ####[facility] LABCLIA [id number] [place] [address] [place] Glucose Test strip (U) [Mass/Vol] Negative Normal Negative [facility] Comment on above: Order Comment: Speci men Type: URINE SPECIMENOrdering Facility: [facility] Address: [address] [place] [address] Performed By: #### 2 4356-8 ####[facility] LABCLIA [id number] [place] [address] [place] Hemoglobin Ql (U) 3+ Abnormal Negative [facility] Comment on above: Order Comment: Speci men Type: URINE SPECIMENOrdering Facility: [facility] Address: [address] [place] [address] Performed By: #### 2 4356-8 ####[facility] LABCLIA [id number] [place] [address] [place] Hyaline casts (Urine sed) [#/Area] 1-3 /LPF Abnormal 0 /LPF [facility] Comment on above: Order Comment: Speci men Type: URINE SPECIMENOrdering Facility: [facility] Address: [address] [place] [address] Performed By: #### 2 4356-8 ####[facility] LABCLIA [id number] [place] [address] [place] Ketones Ql (U) Negative Normal Negative [facility] Comment on above: Order Comment: Speci men Type: URINE SPECIMENOrdering Facility: [facility] Address: [address] [place] [address] Performed By: #### 2 4356-8 ####[facility] LABCLIA [id number] [place] [address] [place] Leukocyte esterase Test strip Ql (U) Trace Abnormal Negative [facility] Comment on above: Order Comment: Speci men Type: URINE SPECIMENOrdering Facility: [facility] Address: [address] [place] [address] Performed By: #### 2 4356-8 ####[facility] LABCLIA [id number] [place] [address] [place] Nitrite Ql (U) Negative Normal Negative [facility] Comment on above: Order Comment: Speci men Type: URINE SPECIMENOrdering Facility: [facility] Address: [address] [place] [address] Performed By: #### 2 4356-8 ####[facility] LABCLIA [id number] [place] [address] [place] pH (U) 6.0 [pH] Normal <8.5 [facility] Comment on above: Order Comment: Speci men Type: URINE SPECIMENOrdering Facility: [facility] Address: [address] [place] [address] Performed By: #### 2 4356-8 ####[facility] LABCLIA [id number] [place] [address] [place] Protein (U) [Mass/Vol] Trace Abnormal Negative [facility] Comment on above: Order Comment: Speci men Type: URINE SPECIMENOrdering Facility: [facility] Address: [address] [place] [address] Performed By: #### 2 4356-8 ####[facility] LABCLIA [id number] [place] [address] [place] RBC LM.HPF (Urine sed) [#/Area] 11-20 /HPF Abnormal 0-2 /HPF [facility] Comment on above: Order Comment: Speci men Type: URINE SPECIMENOrdering Facility: [facility] Address: [address] [place] [address] Performed By: #### 2 4356-8 ####[facility] [id number] [place] [address] [place] Specific gravity (U) [Rel density] 1.027 Normal 1.005-1.03 0 [facility] Comment on above: Order Comment: Speci men Type: URINE SPECIMENOrdering Facility: [facility] Address: [address] [place] [address] Performed By: #### 2 4356-8 ####[facility] [id number] [place] [address] [place] Urobilinogen Ql (U) 1.0 EU/dL Normal 0.2-1.0 EU/dL [facility] Comment on above: Order Comment: Speci men Type: URINE SPECIMENOrdering Facility: [facility] Address: [address] [place] [address] Performed By: #### 2 4356-8 ####[facility] [id number] [place] [address] [place] WBC LM.HPF (Urine sed) [#/Area] /[HPF] Abnormal 0-5 /HPF [facility] Comment on above: Order Comment: Speci men Type: URINE SPECIMENOrdering Facility: [facility] Address: [address] [place] [address] Performed By: #### 2 4356-8 ####[facility] [id number] [place] [address] [place] Urinalysis complete pnl [...] , Intermediate >2 , Resistant >4 Abnormal [facility] Comment on above: Order Comment: Speci men Type: URINE SPECIMENOrdering Facility: [facility] Address: [address] [place] [place] [address] Performed By: #### 2 4356-8 ####[facility] LABCLIA [id number] [address] [employer] [facility] [id number], [place] [address] [place] Basic metabolic 2000 panelon 11-23-2023 Anion gap [Moles/Vol] mmol/L Low 5-16 [facility] Comment on above: Order Comment: Speci men Type: BLOOD SPECIMENOrdering Facility: [facility] Address: [address] [place] [address] Performed By: #### 2 4321-2, ####[facility] LABORATORYCLIA [id number] [place] [id number] [place] Calcium [Mass/Vol] 9.3 mg/dL Normal 8.5-10.5 [facility] Comment on above: Order Comment: Speci men Type: BLOOD SPECIMENOrdering Facility: [facility] Address: [address] [place] [address] Performed By: #### 2 4321-2, ####[facility] LABORATORYCLIA [id number] [place] [id number] [place] Chloride [Moles/Vol] 107 mmol/L Normal 98-107 [facility] Comment on above: Order Comment: Speci men Type: BLOOD SPECIMENOrdering Facility: [facility] Address: [address] [place] [address] Performed By: #### 2 4321-2, ####[facility] LABORATORYCLIA [id number] [place] [id number] [place] CO2 [Moles/Vol] 28 mmol/L Normal 21-32 [facility] Comment on above: Order Comment: Speci men Type: BLOOD SPECIMENOrdering Facility: [facility] Address: [address] [place] [address] Performed By: #### 2 4321-2, ####[facility] LABORATORYCLIA [id number] [place] [id number] [place] Creatinine [Mass/Vol] 0.78 mg/dL Normal 0.51-0.95 [facility] Comment on above: Order Comment: Speci men Type: BLOOD SPECIMENOrdering Facility: [facility] Address: [address] [place] [address] Result Comment: Tamie ents receiving either N-Acetylcysteine (NAC) or Metamizole prior to venipuncture, may have falsely depressed results. Performed By: #### 2 4321-2, 10554-3 ####[facility] LABORATORYCLIA [id number] [place] [id number] [place] Creatinine and Glomerular filtration rate.predicted panel (S/P/Bld) 93 mL/min/1.73m??? Normal >=60 [facility] Comment on above: Order Comment: Cole lamas Type: BLOOD SPECIMENOrdering Facility: [facility] Address: [address] [place] [address] Result Comment: Connie mated Glomerular Filtration Rate [...] actual GFR. Performed By: #### 2 4321-2, 56380-8 ####[facility] LABORATORYCLIA [id number] [place] [address] [place] Glucose [Mass/Vol] 95 mg/dL Normal 70-100 [facility] Comment on above: Order Comment: Cole lamas Type: BLOOD SPECIMENOrdering Facility: [facility] Address: [address] [place] [address] Result Comment: The [place] Diabetes Association (ADA) provides guidance for cutoff [...] Standards of Medical Care in Diabetes 2016, [place] Diabetes Association. Diabetes Care. 2016.39(Suppl 1). Results may be falsely elevated after the administration of Sulfapyridine. Results may be falsely depressed after the administration of Sulfasalazine. Performed By: #### 2 432-2, ####[facility] LABORATORYCLIA [id number] [place] [id number] [place] Potassium [Moles/Vol] 4.2 mmol/L Normal 3.5-5.1 [facility] Comment on above: Order Comment: Speci men Type: BLOOD SPECIMENOrdering Facility: [facility] Address: [address] [place] [address] Performed By: #### 2 4322, ####[facility] LABORATORYCLIA [id number] [place] [id number] [place] Sodium [Moles/Vol] 137 mmol/L Normal 136-145 [facility] Comment on above: Order Comment: Speci men Type: BLOOD SPECIMENOrdering Facility: [facility] Address: [address] [place] [address] Performed By: #### 2 4320-, ####[facility] LABORATORYCLIA [id number] [place] [address] [place] Urea nitrogen [Mass/Vol] 18 mg/dL Normal 7-26 [facility] Comment on above: Order Comment: Speci men Type: BLOOD SPECIMENOrdering Facility: [facility] Address: [address] [place] [address] Performed By: #### 2 2, ####[facility] LABORATORYCLIA [id number] [place] [id number] [place] CBC W Auto Differential pane l (Bld)on 11-23-2023 Anisocytosis Ql (Bld) Present Normal [facility] Comment on above: Order Comment: Speci men Type: BLOOD SPECIMENOrdering Facility: [facility] Address: [address] [place] [address] Performed By: #### 5 7021-8 ####[facility] LABORATORYCLIA [id number] [place] [address] [place] Band form neutrophils/100 WBC (Bld) 1.0 % Normal [facility] Comment on above: Order Comment: Speci men Type: BLOOD SPECIMENOrdering Facility: [facility] Address: [address] [place] [address] Performed By: #### 5 7021-8 ####[facility] LABORATORYCLIA [id number] [place] [address] [place] Basophils (Bld) [#/Vol] 0.00 10*3/uL Normal <0.11 [facility] Comment on above: Order Comment: Speci men Type: BLOOD SPECIMENOrdering Facility: [facility] Address: [address] [place] [address] Performed By: #### 5 7021-8 ####[facility] LABORATORYCLIA [id number] [address] [place] Basophils/100 WBC (Bld) 0.0 % Normal [facility] Comment on above: Order Comment: Speci men Type: BLOOD SPECIMENOrdering Facility: [facility] Address: [address] [place] [address] Performed By: #### 5 7021-8 ####[facility] LABORATORYCLIA [id number] [place] [address] [place] Differential cell count method Nom (Bld) Manual Normal [facility] Comment on above: Order Comment: Speci men Type: BLOOD SPECIMENOrdering Facility: [facility] Address: [address] [place] [address] Performed By: #### 5 7021-8 ####[facility] LABORATORYCLIA [id number] [place] [address] [place] Eosinophils (Bld) [#/Vol] 0.13 10*3/uL Normal <0.46 [facility] Comment on above: Order Comment: Speci men Type: BLOOD SPECIMENOrdering Facility: [facility] Address: [address] [place] [address] Performed By: #### 5 7021-8 ####[facility] LABORATORYCLIA [id number] [place] [address] [place] Eosinophils/100 WBC (Bld) 1.0 % Normal [facility] Comment on above: Order Comment: Speci men Type: BLOOD SPECIMENOrdering Facility: [facility] Address: [address] [place] [address] Performed By: #### 5 7021-8 ####[facility] LABORATORYCLIA [id number] [place] [address] [place] Erythrocyte distribution width (RBC) [Ratio] 26.2 % High 11.5-15.0 [facility] Comment on above: Order Comment: Speci men Type: BLOOD SPECIMENOrdering Facility: [facility] Address: [address] [place] [address] Performed By: #### 5 7021-8 ####[facility] LABORATORYCLIA [id number] [place] [address] [place] Hematocrit (Bld) [Volume fraction] 27.9 % Low 36.0-46.0 [facility] Comment on above: Order Comment: Speci men Type: BLOOD SPECIMENOrdering Facility: [facility] Address: [address] [place] [address] Performed By: #### 5 7021-8 ####[facility] LABORATORYCLIA [id number] [place] [address] [place] Hemoglobin (Bld) [Mass/Vol] 9.0 g/dL Low 11.5-15.5 [facility] Comment on above: Order Comment: Speci men Type: BLOOD SPECIMENOrdering Facility: [facility] Address: [address] [place] [address] Performed By: #### 5 7021-8 ####[facility] LABORATORYCLIA [id number] [place] [id number] [place] Lymphocytes (Bld) [#/Vol] 2.53 10*3/uL Normal 1.00-4.00 [facility] Comment on above: Order Comment: Speci men Type: BLOOD SPECIMENOrdering Facility: [facility] Address: [address] [place] [address] Performed By: #### 5 7021-8 ####[facility] LABORATORYCLIA [id number] [address] [place] Lymphocytes/100 WBC (Bld) 19.0 % Normal [facility] Comment on above: Order Comment: Speci men Type: BLOOD SPECIMENOrdering Facility: [facility] Address: [address] [place] [address] Performed By: #### 5 7021-8 ####[facility] LABORATORYCLIA [id number] [place] [address] [place] MCH (RBC) [Entitic mass] 24.3 pg Low 26.0-34.0 [facility] Comment on above: Order Comment: Speci men Type: BLOOD SPECIMENOrdering Facility: [facility] Address: [address] [place] [address] Performed By: #### 5 7021-8 ####[facility] LABORATORYCLIA [id number] [address] [place] MCHC (RBC) [Mass/Vol] 32.3 g/dL Normal 30.5-36.0 [facility] Comment on above: Order Comment: Speci men Type: BLOOD SPECIMENOrdering Facility: [facility] Address: [address] [place] [address] Performed By: #### 5 7021-8 ####[facility] LABORATORYCLIA [id number] [place] [address] [place] MCV (RBC) [Entitic vol] 75.4 fL Low 80.0-100.0 [facility] Comment on above: Order Comment: Speci men Type: BLOOD SPECIMENOrdering Facility: [facility] Address: [address] [place] [address] Performed By: #### 5 7021-8 ####[facility] LABORATORYCLIA [id number] [address] [place] Monocytes (Bld) [#/Vol] 1.33 10*3/uL High <0.87 [facility] Comment on above: Order Comment: Speci men Type: BLOOD SPECIMENOrdering Facility: [facility] Address: [address] [place] [address] Performed By: #### 5 7021-8 ####[facility] LABORATORYCLIA [id number] [place] [id number] [place] Monocytes/100 WBC (Bld) 10.0 % Normal [facility] Comment on above: Order Comment: Speci men Type: BLOOD SPECIMENOrdering Facility: [facility] Address: [address] [place] [address] Performed By: #### 5 7021-8 ####[facility] LABORATORYCLIA [id number] [place] [id number] [place] Neutrophils (Bld) [#/Vol] 9.31 10*3/uL High 1.45-7.50 [facility] Comment on above: Order Comment: Speci men Type: BLOOD SPECIMENOrdering Facility: [facility] Address: [address] [place] [address] Performed By: #### 5 7021-8 ####[facility] LABORATORYCLIA [id number] [place] [address] [place] Neutrophils/100 WBC (Bld) 69.0 % Normal [facility] Comment on above: Order Comment: Speci men Type: BLOOD SPECIMENOrdering Facility: [facility] Address: [address] [place] [address] Performed By: #### 5 7021-8 ####[facility] LABORATORYCLIA [id number] [place] [id number] [place] Nucleated RBC (Bld) [#/Vol] 10*3/uL Normal <0.01 [facility] Comment on above: Order Comment: Speci men Type: BLOOD SPECIMENOrdering Facility: [facility] Address: [facility] [place] [address] Performed By: #### 5 7021-8 ####[facility] LABORATORYCLIA [id number] [place] [id number] [place] Nucleated RBC/100 WBC (Bld) [Ratio] 0.0 /100 WBC Normal [facility] Comment on above: Order Comment: Speci men Type: BLOOD SPECIMENOrdering Facility: [facility] Address: [address] [place] [address] Performed By: #### 5 7021-8 ####[facility] LABORATORYCLIA [id number] [place] [id number] [place] Ovalocytes LM Ql (Bld) Few Normal [facility] Comment on above: Order Comment: Speci men Type: BLOOD SPECIMENOrdering Facility: [facility] Address: [address] [place] [address] Performed By: #### 5 7021-8 ####[facility] LABORATORYCLIA [id number] [place] [address] [place] Platelet mean volume (Bld) [Entitic vol] 10.0 fL Normal 9.0-12.7 [facility] Comment on above: Order Comment: Speci men Type: BLOOD SPECIMENOrdering Facility: [facility] Address: [address] [place] [address] Performed By: #### 5 7021-8 ####[facility] LABORATORYCLIA [id number] [place] [address] [place] Platelets (Bld) [#/Vol] 107 10*3/uL Low 150-400 [facility] Comment on above: Order Comment: Speci men Type: BLOOD SPECIMENOrdering Facility: [facility] Address: [address] [place] [address] Result Comment: No c lot detected. Performed By: #### 5 7021-8 ####[facility] LABORATORYCLIA [id number] [place] [address] [place] Platelets Estimate (Bld) [#/Vol] Decreased Normal [facility] Comment on above: Order Comment: Speci men Type: BLOOD SPECIMENOrdering Facility: [facility] Address: [address] [place] [address] Performed By: #### 5 7021-8 ####[facility] LABORATORYCLIA [id number] [address] Polychromasia LM Ql (Bld) Slight Normal [facility] Comment on above: Order Comment: Speci men Type: BLOOD SPECIMENOrdering Facility: [facility] Address: [address] [place] [address] Performed By: #### 5 7021-8 ####[facility] LABORATORYCLIA [id number] [place] [id number] [place] RBC (Bld) [#/Vol] 3.70 10*6/uL Low 3.90-5.20 [facility] Comment on above: Order Comment: Speci men Type: BLOOD SPECIMENOrdering Facility: [facility] Address: [address] [place] [address] Performed By: #### 5 7021-8 ####[facility] LABORATORYCLIA [id number] [address] RED CELL MORPH Reviewed: see result s of individual morphologies Normal [facility] Comment on above: Order Comment: Speci men Type: BLOOD SPECIMENOrdering Facility: [facility] Address: [address] [place] [address] Performed By: #### 5 7021-8 ####[facility] LABORATORYCLIA [id number] [address] WBC (Bld) [#/Vol] 13.30 10*3/uL High 3.70-11.00 [facility] Comment on above: Order Comment: Speci men Type: BLOOD SPECIMENOrdering Facility: [facility] Address: [address] [place] [address] Performed By: #### 5 7021-8 ####[facility] LABORATORYCLIA [id number] [address] CNDSon 11-23-2023 CNDS HNO ID: [id number] Author: JEROME AMAYA DO Service: Hospital Medicine [...] she has been evaluated multiple times at [facility] for similar symptoms. Paracentesis has been [...] IV Rocephin tomorrow, patient had paracentesis in [facility] without any significant results, he had [...] =CHILDHOOD Bupropion (more content not included)... Normal [facility] Magnesium SerPl-mCncon 11-23 Magnesium [Mass/Vol] 1.7 mg/dL Normal 1.6-2.6 [facility] Comment on above: Order Comment: Speci men Type: BLOOD SPECIMENOrdering Facility: [facility] Address: [address] [place] [address] Performed By: #### 2 4321-2, 59683-4 ####[facility] LABORATORYCLIA [id number] [place] [address] [place] Basic metabolic 2000 panelon 11-22-2023 Anion gap [Moles/Vol] 3 mmol/L Low 5-16 [facility] Comment on above: Order Comment: Speci men Type: ARTERIAL BLOOD SPECIMEN [facility]ing [facility]: [facility] Address: [address] [place] [address] Performed By: #### A LLBG #### [facility] CLIA [id number] [address] [place] [address] [place] Calcium [Mass/Vol] 9.7 mg/dL Normal 8.5-10.5 [facility] Comment on above: Order Comment: Speci men Type: ARTERIAL BLOOD SPECIMEN [facility]ing [facility]: [facility] Address: [address] [place] [address] Performed By: #### A LLBG #### [facility] CLIA [id number] [address] [place] [address] [place] Chloride [Moles/Vol] 105 mmol/L Normal 98-107 [facility] Comment on above: Order Comment: Speci men Type: ARTERIAL BLOOD SPECIMEN [facility]ing Facility: [facility] Address: [address] [place] [address] Performed By: #### A LLBG #### [facility]ER[facility] CLIA [id number] [address] [place] [address] [place] CO2 [Moles/Vol] 28 mmol/L Normal 21-32 [facility] Comment on above: Order Comment: Speci men Type: ARTERIAL BLOOD SPECIMEN [facility]ing Facility: [facility] Address: [address] [place] [address] Performed By: #### A LLBG #### [facility]AP[facility] CLIA [id number] [address] [place] [address] [place] Creatinine [Mass/Vol] 0.81 mg/dL Normal 0.51-0.95 [facility] Comment on above: Order Comment: Cole lamas Type: ARTERIAL BLOOD SPECIMEN [facility]ing Facility: [facility] Address: [address] [place] [address] Result Comment: Tamie ents receiving either N-Acetylcysteine (NAC) or Metamizole prior to venipuncture, may have falsely depressed results. Performed By: #### A LLBG #### [facility] THERAPY [facility] [id number] [address] [place] [address] [place] [facility] [place] Creatinine and Glomerular filtration rate.predicted panel (S/P/Bld) 89 mL/min/1.73m??? Normal >=60 [facility] Comment on above: Order Comment: Cole lamas Type: ARTERIAL BLOOD SPECIMEN [facility]ing Facility: [facility] Address: [address] [place] [address] Result Comment: Connie mated Glomerular Filtration Rate [...] GFR. Performed By: #### A LLBG #### [facility] [id number] [address] [place] [address] [place] Glucose [Mass/Vol] 92 mg/dL Normal 70-100 [facility] Comment on above: Order Comment: Cole lamas Type: ARTERIAL BLOOD SPECIMEN Ordering Facility: [facility] Address: [address] [place] [address] Result Comment: The [place] Diabetes [employer] (ADA) provides guidance for cutoff [...] Standards of Medical Care in Diabetes 2016, [place] [employer]. Diabetes Care. 2016.39(Suppl 1). Results may be falsely elevated after the administration of Sulfapyridine. Results may be falsely depressed after the administration of Sulfasalazine. Performed By: #### A LLBG #### [facility] CLIA [id number] [address] [place] [address] [place] [facility] Potassium [Moles/Vol] 4.4 mmol/L Normal 3.5-5.1 [facility] Comment on above: Order Comment: Speci men Type: ARTERIAL BLOOD SPECIMEN Ordering Facility: [facility] Address: [address] [place] [address] Performed By: #### A LLBG #### [facility] CLIA [id number] [address] [place] [address] [place] [facility] Sodium [Moles/Vol] 136 mmol/L Normal 136-145 [facility] Comment on above: Order Comment: Speci men Type: ARTERIAL BLOOD SPECIMEN Ordering Facility: [facility] Address: [address] [place] [address] Performed By: #### A LLBG #### [facility] CLIA [id number] [address] [place] [address] [facility] Urea nitrogen [Mass/Vol] 18 mg/dL Normal 7-26 [facility] Comment on above: Order Comment: Speci men Type: ARTERIAL BLOOD SPECIMEN [facility]ing Facility: [facility] Address: [address] [place] [address] Performed By: #### A LLBG #### [facility] CLIA [id number] [address] [place] [address] [place] CBC W Auto Differential pane l (Bld)on 11-22-2023 Anisocytosis Ql (Bld) Present Normal [facility] Comment on above: Order Comment: Speci men Type: ARTERIAL BLOOD SPECIMEN Ordering Facility: [facility] Address: [address] [place] [address] Performed By: #### A LLBG #### [facility] CLIA [id number] [address] [place] [address] [place] Basophils (Bld) [#/Vol] 0.00 10*3/uL Normal <0.11 [facility] Comment on above: Order Comment: Speci men Type: ARTERIAL BLOOD SPECIMEN Ordering Facility: [facility] Address: [address] [place] [address] Performed By: #### A LLBG #### [facility] CLIA [id number] [address] [place] [address] [place] Basophils/100 WBC (Bld) 0.0 % Normal [facility] Comment on above: Order Comment: Speci men Type: ARTERIAL BLOOD SPECIMEN Ordering Facility: [facility] Address: [address] [place] [address] Performed By: #### A LLBG #### [facility] CLIA [id number] [address] [place] [address] [place] Differential cell count method Nom (Bld) Manual Normal [facility] Comment on above: Order Comment: Speci men Type: ARTERIAL BLOOD SPECIMEN Ordering Facility: [facility] Address: [address] [place] [address] Performed By: #### A LLBG #### [facility] CLIA [id number] [address] [place] [address] [place] DIMORPHIC POPULATION Present Normal [facility] Comment on above: Order Comment: Speci men Type: ARTERIAL BLOOD SPECIMEN Ordering Facility: [facility] Address: [address] [place] [address] Performed By: #### A LLBG #### [facility] CLIA [id number] [address] [place] [address] [place] Eosinophils (Bld) [#/Vol] 0.00 10*3/uL Normal <0.46 [facility] Comment on above: Order Comment: Speci men Type: ARTERIAL BLOOD SPECIMEN Ordering Facility: [facility] Address: [address] [place] [address] Performed By: #### A LLBG #### [facility] CLIA [id number] [address] [place] [address] [place] Eosinophils/100 WBC (Bld) 0.0 % Normal [facility] Comment on above: Order Comment: Speci men Type: ARTERIAL BLOOD SPECIMEN Ordering Facility: [facility] Address: [address] [place] [address] Performed By: #### A LLBG #### [facility] CLIA [id number] [address] [place] [address] [place] Erythrocyte distribution width (RBC) [Ratio] 26.1 % High 11.5-15.0 [facility] Comment on above: Order Comment: Speci men Type: ARTERIAL BLOOD SPECIMEN Ordering Facility: [facility] Address: [address] [place] [address] Performed By: #### A LLBG #### [facility] CLIA [id number] [address] [place] [address] [place] Hematocrit (Bld) [Volume fraction] 30.3 % Low 36.0-46.0 [facility] Comment on above: Order Comment: Speci men Type: ARTERIAL BLOOD SPECIMEN Ordering Facility: [facility] Address: [address] [place] [address] Performed By: #### A LLBG #### [facility] CLIA [id number] [address] [place] [address] [place] Hemoglobin (Bld) [Mass/Vol] 9.5 g/dL Low 11.5-15.5 [facility] Comment on above: Order Comment: Speci men Type: ARTERIAL BLOOD SPECIMEN Ordering Facility: [facility] Address: [address] [place] [address] Performed By: #### A LLBG #### [facility] CLIA [id number] [address] [place] [address] [place] Lymphocytes (Bld) [#/Vol] 2.01 10*3/uL Normal 1.00-4.00 [facility] Comment on above: Order Comment: Speci men Type: ARTERIAL BLOOD SPECIMEN Ordering Facility: [facility] Address: [address] [place] [address] Performed By: #### A LLBG #### [facility] CLIA [id number] [address] [place] [address] [place] Lymphocytes/100 WBC (Bld) 16.0 % Normal [facility] Comment on above: Order Comment: Speci men Type: ARTERIAL BLOOD SPECIMEN Ordering Facility: [facility] Address: [address] [place] [address] Performed By: #### A LLBG #### [facility] CLIA [id number] [address] [place] [address] [place] MCH (RBC) [Entitic mass] 24.4 pg Low 26.0-34.0 [facility] Comment on above: Order Comment: Speci men Type: ARTERIAL BLOOD SPECIMEN Ordering Facility: [facility] Address: [address] [place] [address] Performed By: #### A LLBG #### [facility] CLIA [id number] [address] [place] [address] [place] MCHC (RBC) [Mass/Vol] 31.4 g/dL Normal 30.5-36.0 [facility] Comment on above: Order Comment: Speci men Type: ARTERIAL BLOOD SPECIMEN Ordering Facility: [facility] Address: [address] [place] [address] Performed By: #### A LLBG #### [facility] IA [id number] [address] [place] [address] [place] MCV (RBC) [Entitic vol] 77.7 fL Low 80.0-100.0 [facility] Comment on above: Order Comment: Speci men Type: ARTERIAL BLOOD SPECIMEN Ordering Facility: [facility] Address: [address] [place] [address] Performed By: #### A LLBG #### [facility] CLIA [id number] [address] [place] [address] [place] Monocytes (Bld) [#/Vol] 0.88 10*3/uL High <0.87 [facility] Comment on above: Order Comment: Speci men Type: ARTERIAL BLOOD SPECIMEN Ordering Facility: [facility] Address: [address] [place] [address] Performed By: #### A LLBG #### [facility] CLIA [id number] [address] [place] [address] [place] Monocytes/100 WBC (Bld) 7.0 % Normal [facility] Comment on above: Order Comment: Speci men Type: ARTERIAL BLOOD SPECIMEN Ordering Facility: [facility] Address: [address] [place] [address] Performed By: #### A LLBG #### [facility] CLIA [id number] [address] [place] [address] [place] MYELO% 1.0 % Normal [facility] Comment on above: Order Comment: Speci men Type: ARTERIAL BLOOD SPECIMEN Ordering Facility: [facility] Address: [address] [place] [address] Performed By: #### A LLBG #### [facility] CLIA [id number] [address] [place] [address] [place] Neutrophils (Bld) [#/Vol] 9.57 10*3/uL High 1.45-7.50 [facility] Comment on above: Order Comment: Speci men Type: ARTERIAL BLOOD SPECIMEN Ordering Facility: [facility] Address: [address] [place] [address] Performed By: #### A LLBG #### [facility] CLIA [id number] [address] [place] [address] [place] Neutrophils.hyperseg mented LM Ql (Bld) Occasional Normal [facility] Comment on above: Order Comment: Speci men Type: ARTERIAL BLOOD SPECIMEN Ordering Facility: [facility] Address: [address] [place] [address] Performed By: #### A LLBG #### [facility] CLIA [id number] [address] [place] [address] [place] Neutrophils/100 WBC (Bld) 76.0 % Normal [facility] Comment on above: Order Comment: Speci men Type: ARTERIAL BLOOD SPECIMEN Ordering Facility: [facility] Address: [address] [place] [address] Performed By: #### A LLBG #### [facility] CLIA [id number] [address] [place] [address] [place] Nucleated RBC (Bld) [#/Vol] 10*3/uL Normal <0.01 [facility] Comment on above: Order Comment: Speci men Type: ARTERIAL BLOOD SPECIMEN Ordering Facility: [facility] Address: [address] [place] [address] Performed By: #### A LLBG #### [facility] CLIA [id number] [address] [place] [address] [place] Nucleated RBC/100 WBC (Bld) [Ratio] 0.0 /100 WBC Normal [facility] Comment on above: Order Comment: Speci men Type: ARTERIAL BLOOD SPECIMEN Ordering Facility: [facility] Address: [address] [place] [address] Performed By: #### A LLBG #### [facility] CLIA [id number] [address] [place] [address] [place] Ovalocytes LM Ql (Bld) Few Normal [facility] Comment on above: Order Comment: Speci men Type: ARTERIAL BLOOD SPECIMEN Ordering Facility: [facility] Address: [address] [place] [address] Performed By: #### A LLBG #### [facility] CLIA [id number] [address] [place] [address] [place] Platelet mean volume (Bld) [Entitic vol] 9.7 fL Normal 9.0-12.7 [facility] Comment on above: Order Comment: Speci men Type: ARTERIAL BLOOD SPECIMEN Ordering Facility: [facility] Address: [address] [place] [address] Performed By: #### A LLBG #### [facility] CLIA [id number] [address] [place] [address] [place] Platelets (Bld) [#/Vol] 95 10*3/uL Low 150-400 [facility] Comment on above: Order Comment: Speci men Type: ARTERIAL BLOOD SPECIMEN Ordering Facility: [facility] Address: [address] [place] [address] Result Comment: No c lot detected. Performed By: #### A LLBG #### [facility] CLIA [id number] [address] [place] [address] Platelets Estimate (Bld) [#/Vol] Decreased Normal [facility] Comment on above: Order Comment: Speci men Type: ARTERIAL BLOOD SPECIMEN Ordering Facility: [facility] Address: [address] [place] [address] Performed By: #### A LLBG #### [facility] CLIA [id number] [address] [place] [address] Polychromasia LM Ql (Bld) Slight Normal [facility] Comment on above: Order Comment: Speci men Type: ARTERIAL BLOOD SPECIMEN Ordering Facility: [facility] Address: [address] [place] [address] Performed By: #### A LLBG #### [facility] CLIA [id number] [address] [place] [address] [place] RBC (Bld) [#/Vol] 3.90 10*6/uL Normal 3.90-5.20 [facility] Comment on above: Order Comment: Speci men Type: ARTERIAL BLOOD SPECIMEN Ordering Facility: [facility] Address: [address] [place] [address] Performed By: #### A LLBG #### [facility] CLIA [id number] [address] [place] [address] RED CELL MORPH Reviewed: see result s of individual morphologies Normal [facility] Comment on above: Order Comment: Speci men Type: ARTERIAL BLOOD SPECIMEN Ordering Facility: [facility] Address: [address] [place] [address] Performed By: #### A LLBG #### [facility] CLIA [id number] [address] [place] [address] [place] WBC (Bld) [#/Vol] 12.59 10*3/uL High 3.70-11.00 [facility] Comment on above: Order Comment: Speci men Type: ARTERIAL BLOOD SPECIMEN Ordering Facility: [facility] Address: [address], [place] [id number] Performed By: #### A LLBG #### [facility] CLIA [id number] [address] [place] [id number] [place] CONSULT PROGon 11-22-2023 CONSULT PROG HNO ID: [id number] Author: SOHAIL CARRINGTON MD Service: Infectious Disease [...] November 22, 2023 TIME: 9:57 AM Normal [facility] Magnesium SerPl-mCncon 11-22 Magnesium [Mass/Vol] 1.9 mg/dL Normal 1.6-2.6 [facility] Comment on above: Order Comment: Speci men Type: ARTERIAL BLOOD SPECIMEN Ordering Facility: [facility] Address: [address] [place] [address] Performed By: #### A LLBG #### [facility] CLIA [id number] [address] [place] [address] [place] BF MANUAL DIFFon 11-21-2023 DIF TTL, BODY FLUID 100 cells counted Normal [facility] Comment on above: Order Comment: Speci men Type: ARTERIAL BLOOD SPECIMEN Ordering Facility: [facility] Address: [address] [place] [address] Performed By: #### A LLBG #### [facility] CLIA [id number] [address] [place] [address] [place] LYMPH%, BF 67 % High 18-36 [facility] Comment on above: Order Comment: Speci men Type: ARTERIAL BLOOD SPECIMEN Ordering Facility: [facility] Address: [address] [place] [address] Performed By: #### A LLBG #### [facility] CLIA [id number] [address] [place] [address] [place] MONO% BF 18 % Normal [facility] Comment on above: Order Comment: Speci men Type: ARTERIAL BLOOD SPECIMEN Ordering Facility: [facility] Address: [address] [place] [address] Performed By: #### A LLBG #### [facility] CLIA [id number] [address] [place] [address] [place] NEUT%, BF 15 % High 0-1 [facility] Comment on above: Order Comment: Speci men Type: ARTERIAL BLOOD SPECIMEN Ordering Facility: [facility] Address: [address] [place] [address] Performed By: #### A LLBG #### [facility] CLIA [id number] [address] [place] [address] BF STAFF REVIEW (LAB ORDER)o n 11-21-2023 BF REVIEW Reviewed by Donny Miguel DO [facility] Comment on above: Order Comment: Speci men Type: ARTERIAL BLOOD SPECIMEN Ordering Facility: [facility] Address: [address] [place] [address] Performed By: #### A LLBG #### [facility] CLIA [id number] [address] [place] [address] BF STAFF COMMENTS Normal [facility] Comment on above: Order Comment: Speci men Type: ARTERIAL BLOOD SPECIMEN Ordering Facility: [facility] Address: [address] [place] [address] Result Comment: CYTO PREP INTERPRETATION: Mixed inflammatory cells including histiocytes/macrophages and mesothelial cells. 11/22/2023. Performed By: #### A LLBG #### [facility] CLIA [id number] [address] [place] [address] BODY FLUID CELL COUNTon 10-28 Clarity (Unsp spec) Clear Normal Clear [facility] Comment on above: Order Comment: Speci men Type: ARTERIAL BLOOD SPECIMEN Ordering Facility: [facility] Address: [address] [place] [address] Performed By: #### A LLBG #### [facility] CLIA [id number] [address] [place] [address] [place] Color (Body fld) Yellow Normal Yellow [facility] Comment on above: Order Comment: Speci men Type: ARTERIAL BLOOD SPECIMEN Ordering Facility: [facility] Address: [address] [place] [address] Performed By: #### A LLBG #### [facility] CLIA [id number] [address] [place] [address] [place] RBC Manual cnt (Body fld) [#/Vol] <2000 Normal <2000 [facility] Comment on above: Order Comment: Speci men Type: ARTERIAL BLOOD SPECIMEN Ordering Facility: [facility] Address: [address] [place] [address] Performed By: #### A LLBG #### [facility] CLIA [id number] [address] [place] [address] [place] Specimen source Nom (Body fld) ASCITES FLUID Normal [facility] Comment on above: Order Comment: Speci men Type: ARTERIAL BLOOD SPECIMEN Ordering Facility: [facility] Address: [facility] [place] [address] Performed By: #### A LLBG #### [facility] CLIA [id number] [address] [place] [address] [place] WBC Manual cnt (Body fld) [#/Vol] 433 /uL Normal <1000 [facility] Comment on above: Order Comment: Speci men Type: ARTERIAL BLOOD SPECIMEN Ordering Facility: [facility] Address: [address] [place] [address] Performed By: #### A LLBG #### [facility] CLIA [id number] [address] [place] [address] [place] Bacteria Fld Culton 11-21-19 24 Bacteria identified Cx Nom (Body fld) CULTURE, BODY FLD: No growth 5 days GRAM STAIN: Moderate Polymorphonuclear leukocytes No organisms seen Normal [facility] Comment on above: Performed By: #### 3 2693-4 #### [facility] CLIA [id number] [address] [place] [address] [place] Basic metabolic 2000 panelon 11-21-2023 Anion gap [Moles/Vol] 4 mmol/L Low 5-16 [facility] Comment on above: Order Comment: Speci men Type: BLOOD SPECIMEN Ordering Facility: [facility] Address: [address] [place] [address] Performed By: #### 2 4323-8, 99553-4 #### [facility] CLIA [id number] [address] [place], [place] [address] [place] Calcium [Mass/Vol] 9.4 mg/dL Normal 8.5-10.5 [facility] Comment on above: Order Comment: Speci men Type: BLOOD SPECIMEN Ordering Facility: [facility] Address: [address] [place] [address] Performed By: #### 2 4323-8, #### [facility] CLIA [id number] [address] [place] [address] [place] Chloride [Moles/Vol] 106 mmol/L Normal 98-107 [facility] Comment on above: Order Comment: Speci men Type: BLOOD SPECIMEN Ordering Facility: [facility] Address: [address] [place] [address] Performed By: #### 2 4323-8, #### [facility] CLIA [id number] [address] [place] [address] [place] CO2 [Moles/Vol] 27 mmol/L Normal 21-32 [facility] Comment on above: Order Comment: Speci men Type: BLOOD SPECIMEN Ordering Facility: [facility] Address: [address] [place] [address] Performed By: #### 2 4323-8, #### [facility] CLIA [id number] [address] [place] [address] [place] Creatinine [Mass/Vol] 0.73 mg/dL Normal 0.51-0.95 [facility] Comment on above: Order Comment: Speci men Type: BLOOD SPECIMEN Ordering Facility: [facility] Address: [address] [place] [address] Result Comment: Tamie ents receiving either N-Acetylcysteine (NAC) or Metamizole prior to venipuncture, may have falsely depressed results. Performed By: #### 2 4323-8, #### [facility] CLIA [id number] [address] [place] [address] [place] Creatinine and Glomerular filtration rate.predicted panel (S/P/Bld) 100 mL/min/1.73m??? Normal >=60 [facility] Comment on above: Order Comment: Speci men Type: BLOOD SPECIMEN Ordering Facility: [facility] Address: [address] [place] [address] Result Comment: Connie mated Glomerular Filtration Rate [...] GFR. Performed By: #### 2 4323-8, #### [facility] CLIA [id number] [address] [place], [place] [address] [place] Glucose [Mass/Vol] 133 mg/dL High 70-100 [facility] Comment on above: Order Comment: Cole lamas Type: BLOOD SPECIMEN Ordering Facility: [facility] Address: [address] [place] [address] Result Comment: The [place] [employer] (ADA) provides guidance for cutoff [...] Standards of Medical Care in Diabetes 2016, [place] [employer]. Diabetes Care. 2016.39(Suppl 1). Results may be falsely elevated after the administration of Sulfapyridine. Results may be falsely depressed after the administration of Sulfasalazine. Performed By: #### 2 4323-8, #### [facility] CLIA [id number] [address] [place] [address] [place] Potassium [Moles/Vol] 4.6 mmol/L Normal 3.5-5.1 [facility] Comment on above: Order Comment: Cole lamas Type: BLOOD SPECIMEN Ordering Facility: [facility] Address: [address] [place] [address] Performed By: #### 2 4323-8, #### [facility] CLIA [id number] [address] [place], [place] [address] [place] Sodium [Moles/Vol] 137 mmol/L Normal 136-145 [facility] Comment on above: Order Comment: Cole lamas Type: BLOOD SPECIMEN Ordering Facility: [facility] Address: [address] [place] [place] [id number] Performed By: #### 2 4323-8, #### [facility] CLIA [id number] [address] [place], [place] [address] [place] Urea nitrogen [Mass/Vol] 21 mg/dL Normal 04-20 [facility] Comment on above: Order Comment: Speci men Type: BLOOD SPECIMEN Ordering Facility: [facility] Address: [address] [place] [address] Performed By: #### 2 432-8, #### [facility] CLIA [id number] [address] [place] [address] [place] CBC W Auto Differential pane l (Bld)on 11-21-2023 Anisocytosis Ql (Bld) Present Normal [facility] Comment on above: Order Comment: Speci men Type: BLOOD SPECIMEN Ordering Facility: [facility] Address: [address] [place] [address] Performed By: #### 2 432-8, #### [facility] CLIA [id number] [address] [place] [address] [place] Band form neutrophils/100 WBC (Bld) 2.0 % Normal [facility] Comment on above: Order Comment: Speci men Type: BLOOD SPECIMEN Ordering Facility: [facility] Address: [address] [place] [address] Performed By: #### 2 4323-8, #### [facility] CLIA [id number] [address] [place] [address] [place] Basophils (Bld) [#/Vol] 0.00 10*3/uL Normal <0.11 [facility] Comment on above: Order Comment: Speci men Type: BLOOD SPECIMEN Ordering Facility: [facility] Address: [address] [place] [address] Performed By: #### 2 4323-8, #### [facility] CLIA [id number] [address] [place], [place] [address] [place] Basophils/100 WBC (Bld) 0.0 % Normal [facility] Comment on above: Order Comment: Speci men Type: BLOOD SPECIMEN Ordering Facility: [facility] Address: [address] [place] [address] Performed By: #### 2 4323-8, #### [facility] CLIA [id number] [address] [place], [place] [address] [place] Differential cell count method Nom (Bld) Manual Normal [facility] Comment on above: Order Comment: Speci men Type: BLOOD SPECIMEN Ordering Facility: [facility] Address: [address] [place] [address] Performed By: #### 2 432-8, #### [facility] CLIA [id number] [address] [place] [address] [place] Eosinophils (Bld) [#/Vol] 0.00 10*3/uL Normal <0.46 [facility] Comment on above: Order Comment: Speci men Type: BLOOD SPECIMEN Ordering Facility: [facility] Address: [address] [place] [address] Performed By: #### 2 4323-8, #### [facility] CLIA [id number] [address] [place] [address] [place] Eosinophils/100 WBC (Bld) 0.0 % Normal [facility] Comment on above: Order Comment: Speci men Type: BLOOD SPECIMEN Ordering Facility: [facility] Address: [address] [place] [address] Performed By: #### 2 4323-8, #### [facility] CLIA [id number] [address] [place], [place] [address] [place] Erythrocyte distribution width (RBC) [Ratio] 25.2 % High 11.5-15.0 [facility] Comment on above: Order Comment: Speci men Type: BLOOD SPECIMEN Ordering Facility: [facility] Address: [address] [place] [address] Performed By: #### 2 4323-8, #### [facility] CLIA [id number] [address] [place] [address] [place] Hematocrit (Bld) [Volume fraction] 25.6 % Low 36.0-46.0 [facility] Comment on above: Order Comment: Speci men Type: BLOOD SPECIMEN Ordering Facility: [facility] Address: [address] [place] [address] Performed By: #### 2 43212-01, #### [facility] CLIA [id number] [address] [place], [place] [address] [place] Hemoglobin (Bld) [Mass/Vol] 8.2 g/dL Low 11.5-15.5 [facility] Comment on above: Order Comment: Speci men Type: BLOOD SPECIMEN Ordering Facility: [facility] Address: [address] [place] [address] Performed By: #### 2 43212-01, #### [facility] CLIA [id number] [address] [place], [place] [address] [place] Lymphocytes (Bld) [#/Vol] 0.72 10*3/uL Low 1.00-4.00 [facility] Comment on above: Order Comment: Speci men Type: BLOOD SPECIMEN Ordering Facility: [facility] Address: [address] [place] [address] Performed By: #### 2 4328, #### [facility] CLIA [id number] [address] [place], [place] [address] [place] Lymphocytes/100 WBC (Bld) 4.0 % Normal [facility] Comment on above: Order Comment: Speci men Type: BLOOD SPECIMEN Ordering Facility: [facility] Address: [address] [place] [address] Performed By: #### 2 4323-8, #### [facility] CLIA [id number] [address] [place], [place] [address] [place] MCH (RBC) [Entitic mass] 24.6 pg Low 26.0-34.0 [facility] Comment on above: Order Comment: Speci men Type: BLOOD SPECIMEN Ordering Facility: [facility] Address: [address] [place] [address] Performed By: #### 2 4323-8, #### [facility] CLIA [id number] [address] [place] [address] [place] MCHC (RBC) [Mass/Vol] 32.0 g/dL Normal 30.5-36.0 [facility] Comment on above: Order Comment: Speci men Type: BLOOD SPECIMEN Ordering Facility: [facility] Address: [address] [place] [address] Performed By: #### 2 4328, #### [facility] CLIA [id number] [address] [place] [address] [place] MCV (RBC) [Entitic vol] 76.6 fL Low 80.0-100.0 [facility] Comment on above: Order Comment: Speci men Type: BLOOD SPECIMEN Ordering Facility: [facility] Address: [address] [place] [address] Performed By: #### 2 43212-01, #### [facility] CLIA [id number] [address] [place] [address] [place] Metamyelocytes/100 WBC (Bld) 1.0 % Normal [facility] Comment on above: Order Comment: Speci men Type: BLOOD SPECIMEN Ordering Facility: [facility] Address: [address] [place] [address] Performed By: #### 2 4323-8, #### [facility] CLIA [id number] [address] [place] [address] [place] Monocytes (Bld) [#/Vol] 0.89 10*3/uL High <0.87 [facility] Comment on above: Order Comment: Speci men Type: BLOOD SPECIMEN Ordering Facility: [facility] Address: [address] [place] [address] [place] [address] Performed By: #### 2 4323-8, #### [facility] CLIA [id number] [address] [place] [address] [place] Monocytes/100 WBC (Bld) 5.0 % Normal [facility] Comment on above: Order Comment: Speci men Type: BLOOD SPECIMEN Ordering Facility: [facility] Address: [address] [place] [address] Performed By: #### 2 4328, #### [facility] CLIA [id number] [address] [place], [place] [address] [place] Neutrophils (Bld) [#/Vol] 16.09 10*3/uL High 1.45-7.50 [facility] Comment on above: Order Comment: Speci men Type: BLOOD SPECIMEN Ordering Facility: [facility] Address: [address] [place] [address] Performed By: #### 2 4328, #### [facility] CLIA [id number] [address] [place], [place] [address] [place] Neutrophils.hyperseg mented LM Ql (Bld) Occasional Normal [facility] Comment on above: Order Comment: Speci men Type: BLOOD SPECIMEN Ordering Facility: [facility] Address: [facility] [place] [address] Performed By: #### 2 4323-8, #### [facility] CLIA [id number] [address] [place] [address] [place] Neutrophils/100 WBC (Bld) 88.0 % Normal [facility] Comment on above: Order Comment: Speci men Type: BLOOD SPECIMEN Ordering Facility: [facility] Address: [facility] [address] Performed By: #### 2 4323-8, #### [facility] CLIA [id number] [address] [place] [address] [place] Nucleated RBC (Bld) [#/Vol] 10*3/uL Normal <0.01 [facility] Comment on above: Order Comment: Speci men Type: BLOOD SPECIMEN Ordering Facility: [facility] Address: [address] [place] [address] Performed By: #### 2 4328, #### [facility] CLIA [id number] [address] [place], [place] [address] [place] Nucleated RBC/100 WBC (Bld) [Ratio] 0.0 /100 WBC Normal [facility] Comment on above: Order Comment: Speci men Type: BLOOD SPECIMEN Ordering Facility: [facility] Address: [address] [place] [address] Performed By: #### 2 4328, #### [facility] CLIA [id number] [address] [place] [address] [place] Ovalocytes LM Ql (Bld) Few Normal [facility] Comment on above: Order Comment: Speci men Type: BLOOD SPECIMEN Ordering Facility: [facility] Address: [address] [place] [address] Performed By: #### 2 4323-8, #### [facility] CLIA [id number] [address] [place] [address] [place] Platelet mean volume (Bld) [Entitic vol] Normal [facility] Comment on above: Order Comment: Speci men Type: BLOOD SPECIMEN Ordering Facility: [facility] Address: [address] [place] [address] Result Comment: Unab le to Report. Performed By: #### 2 4323-8, #### [facility] CLIA [id number] [address] [place], [place] [address] [place] Platelets (Bld) [#/Vol] 91 10*3/uL Low 150-400 [facility] Comment on above: Order Comment: Speci men Type: BLOOD SPECIMEN Ordering Facility: [facility] Address: [address] [place] [address] Result Comment: No c lot detected. Performed By: #### 2 432-8, #### [facility] CLIA [id number] [address] [place] [address] [place] Platelets Estimate (Bld) [#/Vol] Decreased Normal [facility] Comment on above: Order Comment: Speci men Type: BLOOD SPECIMEN Ordering Facility: [facility] Address: [address] [place] [address] Performed By: #### 2 4323-8, #### [facility] CLIA [id number] [address] [place] [address] [place] Polychromasia LM Ql (Bld) Slight Normal [facility] Comment on above: Order Comment: Speci men Type: BLOOD SPECIMEN Ordering Facility: [facility] Address: [address] [place] [address] Performed By: #### 2 4323-8, #### [facility] CLIA [id number] [address] [place] [address] [place] RBC (Bld) [#/Vol] 3.34 10*6/uL Low 3.90-5.20 [facility] Comment on above: Order Comment: Speci men Type: BLOOD SPECIMEN Ordering Facility: [facility] Address: [address] [place] [address] Performed By: #### 2 4323-8, #### [facility] CLIA [id number] [address] [place] [address] [place] RED CELL MORPH Reviewed: see result s of individual morphologies Normal [facility] Comment on above: Order Comment: Speci men Type: BLOOD SPECIMEN Ordering Facility: [facility] Address: [address] [place] [address] Performed By: #### 2 4323-8, #### [facility] CLIA [id number] [address] [place], [place] [address] [place] WBC (Bld) [#/Vol] 17.88 10*3/uL High 3.70-11.00 [facility] Comment on above: Order Comment: Speci men Type: BLOOD SPECIMEN Ordering Facility: [facility] Address: [address], [place] [address] Performed By: #### 2 4323-8, 74969-0 #### [facility] CLIA [id number] [address] [place] [id number] [place] CONSULTon 11-21-2023 CONSULT HNO ID: [id number] Author: SOHAIL CARRINGTON MD Service: Infectious Disease [...] polysubstance abuse, hx of MRSA, presented to [facility] with abdominal distention and encephalopathy, transferred to [facility] for further evaluation and paracentesis. After transfer, [...] Pt says she had a paracentesis at [facility] ER several days ago. She had influenza B about 2 weeks ago. Has been in and out of the hospital in [place]. She complains of a throbbing headache this [...] PAST SURGICAL HISTORY OF 2018 liver bx [facility] FAMILY HISTORY Problem Relation Age of [...] mg O (more content not included)... Normal [facility] Magnesium SerPl-[facility] 11-21 Magnesium [Mass/Vol] 2.1 mg/dL Normal 1.6-2.6 [facility] Comment on above: Order Comment: Cole lamas Type: BLOOD SPECIMEN Ordering Facility: [facility] Address: [address] [place] [address] Performed By: #### 2 4323-8, 43246-5 #### [facility] CLIA [id number] [address] [place] [address] [place] [facility] Protein (Body fld) [Mass/Vol] g/dL Normal See Comment [facility] Comment on above: Order Comment: Cole lamas Type: ARTERIAL BLOOD SPECIMEN Ordering Facility: [facility] Address: [address] [place] [address] Result Comment: The reference range and other method performance specifications have not been established for this fluid test. The test result should be integrated into the clinical context for interpretation. Performed By: #### A LLBG #### [facility] CLIA [id number] [address] [place] [address] OF [facility] US PARACENTESIS BIon 024 US PARACENTESIS [...] anesthesia. Paracentesis was performed utilizing a 5 Latvian multiholed centesis catheter. Ultrasound confirmed needle position within the fluid and image documenting needle position was recorded in PACS. Paracentesis was performed in the right side of the abdomen. 2.2 L yellow ascitic fluid was removed. Postparacentesis scanning shows no significant residual in the region. Patient tolerated the procedure well without immediate apparent complication. IMPRESSION: Uncomplicated ultrasound-guided paracentesis Real Time Operator: [facility] Transcribe Date/Time: Nov 21 2023 3:05P Dictated by : SANDRA LEDESMA MD This examination was interpreted and the report reviewed and electronically signed by: SANDRA LEDESMA MD on Nov 21 2023 3:06PM EST [id number] Normal [facility] ARTERIAL BLOOD GASESon 11-20 Base excess Calc (Bld) [Moles/Vol] 1 mmol/L Normal 0-2 [facility] Comment on above: Order Comment: Speci men Type: BLOOD SPECIMEN Ordering Facility: [facility] Address: [address] [place] [address] Performed By: #### 2 4323-8, #### [facility] CLIA [id number] [address] [place], [place] [address] [place] Body temperature 98.6 [degF] Normal [facility] Comment on above: Order Comment: Speci men Type: BLOOD SPECIMEN Ordering Facility: [facility] Address: [address] [place] [address] Performed By: #### 2 4328, #### [facility] CLIA [id number] [address] [place], [place] [address] [place] Calcium.ionized (Bld) [Mass/Vol] 1.17 mmol/L Normal 1.08-1.30 [facility] Comment on above: Order Comment: Yeseniai men Type: BLOOD SPECIMEN Ordering Facility: [facility] Address: [address] [place] [address] Performed By: #### 2 4323-8, #### [facility] CLIA [id number] [address] [place] [address] [place] Carboxyhemoglobin (BldA) [Mass fraction] 0.7 % Normal 0.0-2.0 [facility] Comment on above: Order Comment: Speci men Type: BLOOD SPECIMEN Ordering Facility: [facility] Address: [address] [place] [address] Result Comment: Carb oxyhemoglobin Reference Range for Smokers: 2.0-8.0% Performed By: #### 2 432-8, #### [facility] CLIA [id number] [address] [place], [place] [address] [place] CO2 (Bld) [Partial pressure] 37 mm Hg Normal 36-46 [facility] Comment on above: Order Comment: Speci men Type: BLOOD SPECIMEN Ordering Facility: [facility] Address: [address] [place] [address] Performed By: #### 2 4323-8, #### [facility] CLIA [id number] [address] [place], [place] [address] [place] Glucose [Mass/Vol] 123 mg/dL High 60-105 [facility] Comment on above: Order Comment: Speci men Type: BLOOD SPECIMEN Ordering Facility: [facility] Address: [address] [place] [address] Performed By: #### 2 4323-8, #### [facility] CLIA [id number] [address] [place] [address] [place] HCO3 (Bld) [Moles/Vol] 25 mmol/L Normal 22-26 [facility] Comment on above: Order Comment: Speci men Type: BLOOD SPECIMEN Ordering Facility: [facility] Address: [address] [place] [address] Performed By: #### 2 4323-8, #### [facility] CLIA [id number] [address] [place], [place] [address] [place] Hemoglobin (Bld) [Mass/Vol] 9.3 g/dL Low 11.5-15.5 [facility] Comment on above: Order Comment: Speci men Type: BLOOD SPECIMEN Ordering Facility: [facility] Address: [address] [place] [address] Performed By: #### 2 4323-8, #### [facility] CLIA [id number] [address] [place], [place] [address] [place] Lactate [Moles/Vol] 2.0 mmol/L Normal 0.5-2.2 [facility] Comment on above: Order Comment: Speci men Type: BLOOD SPECIMEN Ordering Facility: [facility] Address: [address] [place] [address] Performed By: #### 2 4323-8, #### [facility] CLIA [id number] [address] [place], [place] [address] [place] Methemoglobin (Bld) [Mass fraction] 0.3 % Normal 0.0-1.5 [facility] Comment on above: Order Comment: Speci men Type: BLOOD SPECIMEN Ordering Facility: [facility] Address: [address] [facility] [place] [address] Performed By: #### 2 4323-8, #### [facility] CLIA [id number] [address] [place], [place] [address] [place] O2 THERAPY NC = Nasal Cannula Normal [facility] Comment on above: Order Comment: Speci men Type: BLOOD SPECIMEN Ordering Facility: [facility] Address: [address] [place] [address] Performed By: #### 2 4328, #### [facility] CLIA [id number] [address] [place] [address] [place] Oxygen (Bld) [Partial pressure] 84 mm Hg Low 85-95 [facility] Comment on above: Order Comment: Speci men Type: BLOOD SPECIMEN Ordering Facility: [facility] Address: [address] [place] [address] Performed By: #### 2 4328, #### [facility] CLIA [id number] [address] [place] [address] [place] Oxyhemoglobin (BldA) [Mass fraction] 95 % Normal 95-98 [facility] Comment on above: Order Comment: Speci men Type: BLOOD SPECIMEN Ordering Facility: [facility] Address: [address] [place] [address] Performed By: #### 2 4328, #### [facility] CLIA [id number] [address] [place] [address] [place] pH (Bld) 7.45 [pH] Normal 7.35-7.45 [facility] Comment on above: Order Comment: Speci men Type: BLOOD SPECIMEN Ordering Facility: [facility] Address: [address] [place], [place] [address] Performed By: #### 2 4323-8, #### [facility] CLIA [id number] [address] [place], [place] [address] [place] Potassium [Moles/Vol] 4.4 mmol/L Normal 2.5-6.0 [facility] Comment on above: Order Comment: Speci men Type: BLOOD SPECIMEN Ordering Facility: [facility] Address: [address] [place] [address] Performed By: #### 2 4323-8, #### [facility] CLIA [id number] [address] [place], [place] [address] [place] Sodium [Moles/Vol] 130 mmol/L Low 136-144 [facility] Comment on above: Order Comment: Speci men Type: BLOOD SPECIMEN Ordering Facility: [facility] Address: [address] [place], [place] [address] Performed By: #### 2 4323-8, #### [facility] CLIA [id number] [address] [place] [address] [place] CBC W Auto Differential pane l (Bld)on 11-20-2023 Anisocytosis Ql (Bld) Present Normal [facility] Comment on above: Order Comment: Speci men Type: BLOOD SPECIMEN Ordering Facility: [facility] Address: [address] [place] [id number] Performed By: #### 2 4323-8, #### [facility] CLIA [id number] [address] [place] [address] [place] Band form neutrophils/100 WBC (Bld) 3.0 % Normal [facility] Comment on above: Order Comment: Speci men Type: BLOOD SPECIMEN Ordering Facility: [facility] Address: [address] [place] [address] Performed By: #### 2 4323-8, #### [facility] CLIA [id number] [address] [place], [place] [address] [place] Basophils (Bld) [#/Vol] 0.00 10*3/uL Normal <0.11 [facility] Comment on above: Order Comment: Speci men Type: BLOOD SPECIMEN Ordering Facility: [facility] Address: [address] [place] [address] Performed By: #### 2 4323-8, #### [facility] CLIA [id number] [address] [place], [place] [address] [place] Basophils/100 WBC (Bld) 0.0 % Normal [facility] Comment on above: Order Comment: Speci men Type: BLOOD SPECIMEN Ordering Facility: [facility] Address: [address] [place] [address] Performed By: #### 2 4323-8, #### [facility] CLIA [id number] [address] [place] [address] [place] Differential cell count method Nom (Bld) Manual Normal [facility] Comment on above: Order Comment: Speci men Type: BLOOD SPECIMEN Ordering Facility: [facility] Address: [address] [place] [address] Performed By: #### 2 4323-8, #### [facility] CLIA [id number] [address] [place] [address] [place] Eosinophils (Bld) [#/Vol] 0.00 10*3/uL Normal <0.46 [facility] Comment on above: Order Comment: Speci men Type: BLOOD SPECIMEN Ordering Facility: [facility] Address: [address] [place] [address] Performed By: #### 2 4323-8, #### [facility] CLIA [id number] [address] [place] [address] [place] Eosinophils/100 WBC (Bld) 0.0 % Normal [facility] Comment on above: Order Comment: Speci men Type: BLOOD SPECIMEN Ordering Facility: [facility] Address: [address] [place] [address] Performed By: #### 2 4323-8, #### [facility] CLIA [id number] [address] [place], [place] [address] [place] Erythrocyte distribution width (RBC) [Ratio] 24.6 % High 11.5-15.0 [facility] Comment on above: Order Comment: Speci men Type: BLOOD SPECIMEN Ordering Facility: [facility] Address: [address] [place], [place] [address] Performed By: #### 2 4323-8, #### [facility] CLIA [id number] [address] [place], [place] [address] [place] Hematocrit (Bld) [Volume fraction] 26.5 % Low 36.0-46.0 [facility] Comment on above: Order Comment: Speci men Type: BLOOD SPECIMEN Ordering Facility: [facility] Address: [address] [place] [address] Performed By: #### 2 432-8, #### [facility] CLIA [id number] [address] [place], [place] [address] [place] Hemoglobin (Bld) [Mass/Vol] 8.3 g/dL Low 11.5-15.5 [facility] Comment on above: Order Comment: Speci men Type: BLOOD SPECIMEN Ordering Facility: [facility] Address: [address] [place] [address] Performed By: #### 2 4328, #### [facility] CLIA [id number] [address] [place] [address] [place] Lymphocytes (Bld) [#/Vol] 0.31 10*3/uL Low 1.00-4.00 [facility] Comment on above: Order Comment: Speci men Type: BLOOD SPECIMEN Ordering Facility: [facility] Address: [address] [place], [place] [address] Performed By: #### 2 4323-8, #### [facility] CLIA [id number] [address] [place], [place] [address] [place] Lymphocytes/100 WBC (Bld) 2.0 % Normal [facility] Comment on above: Order Comment: Speci men Type: BLOOD SPECIMEN Ordering Facility: [facility] Address: [address] [place] [address] Performed By: #### 2 4323-8, #### [facility] CLIA [id number] [address] [place] [address] OF [facility] MCH (RBC) [Entitic mass] 23.9 pg Low 26.0-34.0 [facility] Comment on above: Order Comment: Speci men Type: BLOOD SPECIMEN Ordering Facility: [facility] Address: [address] [place] [address] Performed By: #### 2 4323-8, #### [facility] CLIA [id number] [address] [place] [address] [place] MCHC (RBC) [Mass/Vol] 31.3 g/dL Normal 30.5-36.0 [facility] Comment on above: Order Comment: Speci men Type: BLOOD SPECIMEN Ordering Facility: [facility] Address: [address] [place] [address] Performed By: #### 2 4323-8, #### [facility] CLIA [id number] [address] [place] [address] [place] MCV (RBC) [Entitic vol] 76.1 fL Low 80.0-100.0 [facility] Comment on above: Order Comment: Speci men Type: BLOOD SPECIMEN Ordering Facility: [facility] Address: [address] [place] [address] Performed By: #### 2 4323-8, #### [facility] CLIA [id number] [address] [place] [address] [place] Metamyelocytes/100 WBC (Bld) 1.0 % Normal [facility] Comment on above: Order Comment: Speci men Type: BLOOD SPECIMEN Ordering Facility: [facility] Address: [address] [place] [address] Performed By: #### 2 4323-8, #### [facility] CLIA [id number] [address] [place] [address] [place] Monocytes (Bld) [#/Vol] 0.94 10*3/uL High <0.87 [facility] Comment on above: Order Comment: Speci men Type: BLOOD SPECIMEN Ordering Facility: [facility] Address: [address] [place] [address] Performed By: #### 2 4323-8, #### [facility] CLIA [id number] [address] [place], [place] [address] [place] Monocytes/100 WBC (Bld) 6.0 % Normal [facility] Comment on above: Order Comment: Speci men Type: BLOOD SPECIMEN Ordering Facility: [facility] Address: [address] [place] [address] Performed By: #### 2 4328, #### [facility] CLIA [id number] [address] [place] [address] [place] Neutrophils (Bld) [#/Vol] 14.24 10*3/uL High 1.45-7.50 [facility] Comment on above: Order Comment: Speci men Type: BLOOD SPECIMEN Ordering Facility: [facility] Address: [address] [place] [address] Performed By: #### 2 4328, #### [facility] CLIA [id number] [address] [place] [address] [place] Neutrophils.hyperseg mented LM Ql (Bld) Occasional Normal [facility] Comment on above: Order Comment: Speci men Type: BLOOD SPECIMEN Ordering Facility: [facility] Address: [address] [place] [address] Performed By: #### 2 43238, #### [facility] CLIA [id number] [address] [place], [place] [address] [place] Neutrophils/100 WBC (Bld) 88.0 % Normal [facility] Comment on above: Order Comment: Speci men Type: BLOOD SPECIMEN Ordering Facility: [facility] Address: [address] [place] [address] Performed By: #### 2 4323-8, #### [facility] CLIA [id number] [address] [place], [place] [address] [place] Nucleated RBC (Bld) [#/Vol] 10*3/uL Normal <0.01 [facility] Comment on above: Order Comment: Speci men Type: BLOOD SPECIMEN Ordering Facility: [facility] Address: [address] [place] [address] Performed By: #### 2 4323-8, #### [facility] CLIA [id number] [address] [place], [place] [address] [place] Nucleated RBC/100 WBC (Bld) [Ratio] 0.0 /100 WBC Normal [facility] Comment on above: Order Comment: Speci men Type: BLOOD SPECIMEN Ordering Facility: [facility] Address: [address] [place] [address] Performed By: #### 2 4323-8, #### [facility] CLIA [id number] [address] [place] [address] [place] Ovalocytes LM Ql (Bld) Few Normal [facility] Comment on above: Order Comment: Speci men Type: BLOOD SPECIMEN Ordering Facility: [facility] Address: [address] [place] [address] Performed By: #### 2 4323-8, #### [facility] CLIA [id number] [address] [place] [address] [place] Platelet mean volume (Bld) [Entitic vol] 9.9 fL Normal 9.0-12.7 [facility] Comment on above: Order Comment: Speci men Type: BLOOD SPECIMEN Ordering Facility: [facility] Address: [address] [place] [address] Performed By: #### 2 4323-8, #### [facility] CLIA [id number] [address] [place], [place] [address] [place] Platelets (Bld) [#/Vol] 78 10*3/uL Low 150-400 [facility] Comment on above: Order Comment: Speci men Type: BLOOD SPECIMEN Ordering Facility: [facility] Address: [address] [place] [address] Result Comment: No c lot detected. Performed By: #### 2 4323-8, #### [facility] CLIA [id number] [address] [place], [place] [address] [place] Platelets Estimate (Bld) [#/Vol] Decreased Normal [facility] Comment on above: Order Comment: Speci men Type: BLOOD SPECIMEN Ordering Facility: [facility] Address: [address] [place] [address] Performed By: #### 2 4328, #### [facility] CLIA [id number] [address] [place], [place] [address] [place] Polychromasia LM Ql (Bld) Slight Normal [facility] Comment on above: Order Comment: Speci men Type: BLOOD SPECIMEN Ordering Facility: [facility] Address: [address] [place] [address] Performed By: #### 2 4328, #### [facility] CLIA [id number] [address] [place] [address] [place] RBC (Bld) [#/Vol] 3.48 10*6/uL Low 3.90-5.20 [facility] Comment on above: Order Comment: Speci men Type: BLOOD SPECIMEN Ordering Facility: [facility] Address: [address] [place] [address] Performed By: #### 2 4328, #### [facility] CLIA [id number] [address] [place] [address] [place] RED CELL MORPH Reviewed: see result s of individual morphologies Normal [facility] Comment on above: Order Comment: Speci men Type: BLOOD SPECIMEN Ordering Facility: [facility] Address: [address] [place] [address] Performed By: #### 2 4323-8, #### [facility] CLIA [id number] [address] [place], [place] [address] [place] WBC (Bld) [#/Vol] 15.65 10*3/uL High 3.70-11.00 [facility] Comment on above: Order Comment: Speci men Type: BLOOD SPECIMEN Ordering Facility: [facility] Address: [address] [place] [address] Performed By: #### 2 4323-8, 41926-2 #### [facility] CLIA [id number] [address] [place], [place] [address] [facility] Calcium.ionized [Moles/Vol]o n 11-20-2023 Calcium.ionized (Bld) [Mass/Vol] 1.17 mmol/L Normal 1.16-1.32 [facility] Comment on above: Order Comment: Speci men Type: BLOOD SPECIMEN Ordering Facility: [facility] Address: [address] [place] [address] Performed By: #### 2 4323-8, 95467-3 #### [facility] CLIA [id number] [address] [place] [address] [place] [facility] [place] Comprehensive metabolic 2000 panelon 11-20-2023 Albumin [Mass/Vol] 2.4 g/dL Low 3.2-5.0 [facility] Comment on above: Order Comment: Speci men Type: BLOOD SPECIMEN Ordering Facility: [facility] Address: [address] [place] [address] Result Comment: DELT A CHECK Performed By: #### 2 4323-8, #### [facility] CLIA [id number] [address] [place] [address] [place] ALP [Catalytic activity/Vol] 130 U/L High 45-117 [facility] Comment on above: Order Comment: Speci men Type: BLOOD SPECIMEN Ordering Facility: [facility] Address: [address] [place] [address] Performed By: #### 2 4323-8, #### [facility] CLIA [id number] [address] [place], [place] [address] [facility] [place] ALT [Catalytic activity/Vol] 32 U/L Normal 13-61 [facility] Comment on above: Order Comment: Speci men Type: BLOOD SPECIMEN Ordering Facility: [facility] Address: [address] [place] [address] Result Comment: Resu lts may be falsely depressed after the administration of Sulfasalazine and/or Sulfapyridine. Performed By: #### 2 4323-8, #### [facility] CLIA [id number] [address] [place], [place] [address] [place] Anion gap [Moles/Vol] 3 mmol/L Low 5-16 [facility] Comment on above: Order Comment: Speci men Type: BLOOD SPECIMEN Ordering Facility: [facility] Address: [address] [place] [address] Performed By: #### 2 4323-8, #### [facility] CLIA [id number] [address] [place], [place] [address] [place] AST [Catalytic activity/Vol] 76 U/L High 8-34 [facility] Comment on above: Order Comment: Speci men Type: BLOOD SPECIMEN Ordering Facility: [facility] Address: [address] [place] [address] Result Comment: Resu lts may be falsely depressed after the administration of Sulfasalazine and/or Sulfapyridine. Performed By: #### 2 432-8, #### [facility] CLIA [id number] [address] [place], [place] [address] [place] Bilirubin [Mass/Vol] 2.2 mg/dL High 0.2-1.0 [facility] Comment on above: Order Comment: Speci men Type: BLOOD SPECIMEN Ordering Facility: [facility] Address: [address] [place] [address] Performed By: #### 2 4323-8, #### [facility] CLIA [id number] [address] [place], [place] [address] [place] Calcium [Mass/Vol] 8.9 mg/dL Normal 8.5-10.5 [facility] Comment on above: Order Comment: Speci men Type: BLOOD SPECIMEN Ordering Facility: [facility] Address: [address] [place], [place] [address] Performed By: #### 2 4323-8, #### [facility] CLIA [id number] [address] [place], [place] [address] [place] Chloride [Moles/Vol] 102 mmol/L Normal 98-107 [facility] Comment on above: Order Comment: Speci men Type: BLOOD SPECIMEN Ordering Facility: [facility] Address: [address] [place] [address] Performed By: #### 2 4323-8, #### [facility] CLIA [id number] [address] [place] [address] [place] CO2 [Moles/Vol] 28 mmol/L Normal 21-32 [facility] Comment on above: Order Comment: Speci men Type: BLOOD SPECIMEN Ordering Facility: [facility] Address: [address] [place] [address] Performed By: #### 2 43238, #### [facility] CLIA [id number] [address] [place] [address] [place] Creatinine [Mass/Vol] 0.95 mg/dL Normal 0.51-0.95 [facility] Comment on above: Order Comment: Speci men Type: BLOOD SPECIMEN Ordering Facility: [facility] Address: [address] [place] [address] Result Comment: Tamie ents receiving either N-Acetylcysteine (NAC) or Metamizole prior to venipuncture, may have falsely depressed results. Performed By: #### 2 4323-8, #### [facility] CLIA [id number] [address] [place] [address] [place] Creatinine and Glomerular filtration rate.predicted panel (S/P/Bld) 73 mL/min/1.73m??? Normal >=60 [facility] Comment on above: Order Comment: Speci men Type: BLOOD SPECIMEN Ordering Facility: [facility] Address: [address], [place] [address] Result Comment: Connie mated Glomerular Filtration Rate [...] actual GFR. Performed By: #### 2 4323-8, 23556-4 #### [facility] CLIA [id number] [address] [place] [address] [place] Glucose [Mass/Vol] 141 mg/dL High 70-100 [facility] Comment on above: Order Comment: Cole lamas Type: BLOOD SPECIMEN Ordering Facility: [facility] Address: [facility] [place] [id number] Result Comment: The [place] [employer] (ADA) provides guidance for cutoff [...] Standards of Medical Care in Diabetes 2016, [place] [employer]. Diabetes Care. 2016.39(Suppl 1). Results may be falsely elevated after the administration of Sulfapyridine. Results may be falsely depressed after the administration of Sulfasalazine. Performed By: #### 2 4323-8, #### [facility] CLIA [id number] [address] [place], [place] [address] [place] Potassium [Moles/Vol] 4.9 mmol/L Normal 3.5-5.1 [facility] Comment on above: Order Comment: Cole lamas Type: BLOOD SPECIMEN Ordering Facility: [facility] Address: [address] [place] [address] Performed By: #### 2 4323-8, #### [facility] CLIA [id number] [address] [place], [place] [address] [place] Protein [Mass/Vol] 7.0 g/dL Normal 6.0-8.5 [facility] Comment on above: Order Comment: Speci men Type: BLOOD SPECIMEN Ordering Facility: [facility] Address: [address] [place] [address] Performed By: #### 2 4323-8, #### [facility] CLIA [id number] [address] [place] [address] [place] Sodium [Moles/Vol] 133 mmol/L Low 136-145 [facility] Comment on above: Order Comment: Speci men Type: BLOOD SPECIMEN Ordering Facility: [facility] Address: [address] [place] [address] Performed By: #### 2 4323-8, #### [facility] CLIA [id number] [address] [place] [address] [place] Urea nitrogen [Mass/Vol] 20 mg/dL Normal 7-26 [facility] Comment on above: Order Comment: Speci men Type: BLOOD SPECIMEN Ordering Facility: [facility] Address: [address] [place] [address] Performed By: #### 2 4323-8, #### [facility] CLIA [id number] [address] [place], [place] [address] [place] Lactate (Bld) [Moles/Vol]on 11-20-2023 Lactate [Moles/Vol] 4.2 mmol/L High 0.4-2.0 [facility] Comment on above: Order Comment: Speci men Type: BLOOD SPECIMEN Ordering Facility: [facility] Address: [address] [place] [address] Result Comment: CALL CRITICAL Performed By: #### 2 4323-8, #### [facility] CLIA [id number] [address] [place], [place] [address] [place] Lactate [Moles/Vol] 2.8 mmol/L High 0.4-2.0 [facility] Comment on above: Order Comment: Cole lamas Type: BLOOD SPECIMEN Ordering Facility: [facility] Address: [facility] [place] [address] Performed By: #### 2 4323-8, #### [facility] CLIA [id number] [address] [place], [place] [address] [place] Lactate [Moles/Vol] 3.1 mmol/L High 0.4-2.0 [facility] Comment on above: Order Comment: Cole lamas Type: BLOOD SPECIMEN Ordering Facility: [facility] Address: [address] [place], [place] [address] Performed By: #### 2 4323-8, #### [facility] CLIA [id number] [address] [place], [place] [address] [place] Magnesium SerPl-mCncon 11-20 Magnesium [Mass/Vol] 1.9 mg/dL Normal 1.6-2.6 [facility] Comment on above: Order Comment: Cole lamas Type: BLOOD SPECIMEN Ordering Facility: [facility] Address: [address] [place] [address] [place] [address] Performed By: #### 2 4323-8, #### [facility] CLIA [id number] [address] [place], [place] [address] [place] PT panel Coag (PPP)on 2023 INR Coag (PPP) [Relative time] 2.3 {INR} High 0.9-1.3 [facility] Comment on above: Order Comment: Cole lamas Type: BLOOD SPECIMEN Ordering Facility: [facility] Address: [address] [place] [address] [place] [address] Result Comment: Roma min K Antagonist (VKA) Therapeutic Range: INR 2 to 3 (Target INR of 2.5) Note: For patients treated with VKA drugs, such as warfarin, the [place] [employer] 2012 Guideline recommends [...] Chest 2012, 141:7S-47S Diomedes RA, et al. [facility] 2017, 70: 252-289 Performed By: #### 2 4323-8, #### [facility] CLIA [id number] [address] [place] [address] [place] PT Coag (PPP) [Time] 23.1 s High 9.7-13.0 [facility] Comment on above: Order Comment: Speci men Type: BLOOD SPECIMEN Ordering Facility: [facility] Address: [address] [place] [address] Performed By: #### 2 4323-8, #### [facility] CLIA [id number] [address] [place] [address] [place] Phosphate SerPl-mCncon 11-20 Phosphate [Mass/Vol] 2.5 mg/dL Normal 2.5-4.9 [facility] Comment on above: Order Comment: Speci men Type: BLOOD SPECIMEN Ordering Facility: [facility] Address: [address] [place] [address] Result Comment: Elev ated m-protein (paraprotein) levels in the serum may be exhibited in patients with monoclonal gammopathies, causing falsely elevated inorganic phosphorus results. Performed By: #### 2 4323-8, #### [facility] CLIA [id number] [address] [place] [address] [place] THERAPY NTon 11-20-2023 THERAPY NT HNO ID: [id number] Author: DEV RODRIGUEZ, [employer]ER Service: Respiratory Therapy Author Type: Registered Resp Therapist Type: Therapy (PT/OT/Speech/Resp) Filed: 11/20/2023 01:26 Note Text: Pt ripped off mask and stated she couldn't breathe RN told her how important it was for her to wear at this time due to O2 issues. Pt will not go back on at this time. Normal [facility] XR CHEST 1V FRONTALon 2023 XR [...] fluid. No pneumothorax. IMPRESSION: No significant change. Real Time Operator: PSCB Transcribe Date/Time: Nov 20 2023 7:04A Dictated by : MIREYA BLANC MD This examination was interpreted and the report reviewed and electronically signed by: MIREYA BLANC MD on Nov 20 2023 7:04AM EST [id number] Normal [facility] aPTT PPPon 11-20-2023 aPTT Coag (PPP) [Time] 45.7 s High 23.0-32.4 [facility] Comment on above: Order Comment: Cole lamas Type: BLOOD SPECIMEN Ordering Facility: [facility] Address: [address] [place] [address] Performed By: #### 2 4323-8, 38449-8 #### [facility] CLIA [id number] [address] [place] [address] [place] ARTERIAL BLOOD GASESon 11-19 Base deficit (BldA) [Moles/Vol] -3 mmol/L Low -2-0 [facility] Comment on above: Order Comment: Cole lamas Type: BLOOD SPECIMEN Ordering Facility: [facility] Address: [address] [place] [address] Performed By: #### 5 8410-2 #### [facility] CLIA [id number] [address] [place] [address] [place] Body temperature 98.6 [degF] Normal [facility] Comment on above: Order Comment: Speci men Type: BLOOD SPECIMEN Ordering Facility: [facility] Address: [address] [place] [address] Performed By: #### 5 8410-2 #### [facility] CLIA [id number] [address] [place] [address] [place] Calcium.ionized (Bld) [Mass/Vol] 1.17 mmol/L Normal 1.08-1.30 [facility] Comment on above: Order Comment: Speci men Type: BLOOD SPECIMEN Ordering Facility: [facility] Address: [address] [place] [address] Performed By: #### 5 8410-2 #### [facility] CLIA [id number] [address] [place] [address] [place] Carboxyhemoglobin (BldA) [Mass fraction] 0.9 % Normal 0.0-2.0 [facility] Comment on above: Order Comment: Speci men Type: BLOOD SPECIMEN Ordering Facility: [facility] Address: [address] [place] [address] Result Comment: Carb oxyhemoglobin Reference Range for Smokers: 2.0-8.0% Performed By: #### 5 8410-2 #### [facility] CLIA [id number] [address] [place] [address] [place] CO2 (Bld) [Partial pressure] 40 mm Hg Normal 36-46 [facility] Comment on above: Order Comment: Speci men Type: BLOOD SPECIMEN Ordering Facility: [facility] Address: [address] [place] [address] Performed By: #### 5 8410-2 #### [facility] CLIA [id number] [address] [place] [address] [place] FIO2 40 % Normal [facility] Comment on above: Order Comment: Speci men Type: BLOOD SPECIMEN Ordering Facility: [facility] Address: [address] [place] [address] Performed By: #### 5 8410-2 #### [facility] CLIA [id number] [address] [place], [place] [id number] [place] Glucose [Mass/Vol] 86 mg/dL Normal 60-105 [facility] Comment on above: Order Comment: Speci men Type: BLOOD SPECIMEN Ordering Facility: [facility] Address: [address] [place] [address] Performed By: #### 5 8410-2 #### [facility] CLIA [id number] [address] [place], [place] [address] [place] HCO3 (Bld) [Moles/Vol] 23 mmol/L Normal 22-26 [facility] Comment on above: Order Comment: Speci men Type: BLOOD SPECIMEN Ordering Facility: [facility] Address: [address] [place] [address] Performed By: #### 5 8410-2 #### [facility] CLIA [id number] [address] [place] [address] [place] Hemoglobin (Bld) [Mass/Vol] 10.9 g/dL Low 11.5-15.5 [facility] Comment on above: Order Comment: Speci men Type: BLOOD SPECIMEN Ordering Facility: [facility] Address: [facility] [place] [address] Performed By: #### 5 8410-2 #### [facility] CLIA [id number] [address] [place], [place] [address] [place] Lactate [Moles/Vol] 2.1 mmol/L Normal 0.5-2.2 [facility] Comment on above: Order Comment: Speci men Type: BLOOD SPECIMEN Ordering Facility: [facility] Address: [facility] [address] Performed By: #### 5 8410-2 #### [facility] CLIA [id number] [address] [place], [place] [address] [place] Methemoglobin (Bld) [Mass fraction] 0.2 % Normal 0.0-1.5 [facility] Comment on above: Order Comment: Speci men Type: BLOOD SPECIMEN Ordering Facility: [facility] Address: [address] [facility] [address] Performed By: #### 5 8410-2 #### [facility] CLIA [id number] [address] [place], [place] [address] [facility] [place] O2 THERAPY Positive Normal [facility] Comment on above: Order Comment: Speci men Type: BLOOD SPECIMEN Ordering Facility: [facility] Address: [address] [place] [address] Performed By: #### 5 8410-2 #### [facility] CLIA [id number] [address] [place] [address] [place] Oxygen (Bld) [Partial pressure] 79 mm Hg Low 85-95 [facility] Comment on above: Order Comment: Speci men Type: BLOOD SPECIMEN Ordering Facility: [facility] Address: [address] [place] [address] Performed By: #### 5 8410-2 #### [facility] CLIA [id number] [address] [place] [address] [place] Oxyhemoglobin (BldA) [Mass fraction] 94 % Low 95-98 [facility] Comment on above: Order Comment: Speci men Type: BLOOD SPECIMEN Ordering Facility: [facility] Address: [address] [place] [address] Performed By: #### 5 8410-2 #### [facility] CLIA [id number] [address] [place], [place] [address] [place] pH (Bld) 7.37 [pH] Normal 7.35-7.45 [facility] Comment on above: Order Comment: Speci men Type: BLOOD SPECIMEN Ordering Facility: [facility] Address: [address] [place] [address] Performed By: #### 5 8410-2 #### [facility] CLIA [id number] [address] [place] [address] [place] PO2 / FIO2 RATIO 198 mmHg Low >300 [facility] Comment on above: Order Comment: Speci men Type: BLOOD SPECIMEN Ordering Facility: [facility] Address: [address] [place] [address] Performed By: #### 5 8410-2 #### [facility] CLIA [id number] [address] [place] [address] [place] Potassium [Moles/Vol] 4.4 mmol/L Normal 2.5-6.0 [facility] Comment on above: Order Comment: Speci men Type: BLOOD SPECIMEN Ordering Facility: [facility] Address: [address] [place] [address] Performed By: #### 5 8410-2 #### [facility] CLIA [id number] [address] [place] [address] [place] Sodium [Moles/Vol] 134 mmol/L Low 136-144 [facility] Comment on above: Order Comment: Speci men Type: BLOOD SPECIMEN Ordering Facility: [facility] Address: [address] [place] [address] Performed By: #### 5 8410-2 #### [facility] CLIA [id number] [address] [place] [address] [place] Base deficit (BldA) [Moles/Vol] -6 mmol/L Low -2-0 [facility] Comment on above: Order Comment: Speci men Type: ARTERIAL BLOOD SPECIMEN Ordering Facility: [facility] Address: [address] [place] [address] Performed By: #### A LLBG #### [facility] CLIA [id number] [address] [place] [address] [place] Body temperature 98.6 [degF] Normal [facility] Comment on above: Order Comment: Speci men Type: ARTERIAL BLOOD SPECIMEN Ordering Facility: [facility] Address: [address] [place] [address] Performed By: #### A LLBG #### [facility] CLIA [id number] [address] [place] [address] [place] Calcium.ionized (Bld) [Mass/Vol] 1.22 mmol/L Normal 1.08-1.30 [facility] Comment on above: Order Comment: Speci men Type: ARTERIAL BLOOD SPECIMEN Ordering Facility: [facility] Address: [address] [place] [address] Performed By: #### A LLBG #### [facility] CLIA [id number] [address] [place] [address] [place] Calcium.ionized adjusted to pH 7.4 (BldA) [Moles/Vol] Normal [facility] Comment on above: Order Comment: Speci men Type: ARTERIAL BLOOD SPECIMEN Ordering Facility: [facility] Address: [address] [place] [address] Result Comment: Latrice ured pH is <7.20. Unable to report normalized Calcium. Performed By: #### A LLBG #### [facility] CLIA [id number] [address] [place] [address] [place] Carboxyhemoglobin (BldA) [Mass fraction] 0.5 % Normal 0.0-2.0 [facility] Comment on above: Order Comment: Speci men Type: ARTERIAL BLOOD SPECIMEN Ordering Facility: [facility] Address: [address] [place] [address] Result Comment: Carb oxyhemoglobin Reference Range for Smokers: 2.0-8.0% Performed By: #### A LLBG #### [facility] CLIA [id number] [address] [place] [address] [place] CO2 (Bld) [Partial pressure] 65 mm Hg High 36-46 [facility] Comment on above: Order Comment: Speci men Type: ARTERIAL BLOOD SPECIMEN Ordering Facility: [facility] Address: [address] [place] [address] Performed By: #### A LLBG #### [facility] CLIA [id number] [address] [place] [address] [place] FIO2 100.0 % Normal [facility] Comment on above: Order Comment: Speci men Type: ARTERIAL BLOOD SPECIMEN Ordering Facility: [facility] Address: [address] [place], [place] [address] Performed By: #### A LLBG #### [facility] CLIA [id number] [address] [place] [address] [place] Glucose [Mass/Vol] 107 mg/dL High 60-105 [facility] Comment on above: Order Comment: Speci men Type: ARTERIAL BLOOD SPECIMEN Ordering Facility: [facility] Address: [address] [place] [address] Performed By: #### A LLBG #### [facility] CLIA [id number] [address] [place] [address] [place] HCO3 (Bld) [Moles/Vol] 24 mmol/L Normal 22-26 [facility] Comment on above: Order Comment: Speci men Type: ARTERIAL BLOOD SPECIMEN Ordering Facility: [facility] Address: [address] [place] [address] Performed By: #### A LLBG #### [facility] CLIA [id number] [address] [place] [address] [place] Hemoglobin (Bld) [Mass/Vol] 12.0 g/dL Normal 11.5-15.5 [facility] Comment on above: Order Comment: Speci men Type: ARTERIAL BLOOD SPECIMEN Ordering Facility: [facility] Address: [address] [place] [address] Performed By: #### A LLBG #### [facility] CLIA [id number] [address] [place] [address] [place] Lactate [Moles/Vol] 5.2 mmol/L High 0.5-2.2 [facility] Comment on above: Order Comment: Speci men Type: ARTERIAL BLOOD SPECIMEN Ordering Facility: [facility] Address: [address] [place] [address] Performed By: #### A LLBG #### [facility] CLIA [id number] [address] [place] [address] [place] Methemoglobin (Bld) [Mass fraction] 0.1 % Normal 0.0-1.5 [facility] Comment on above: Order Comment: Speci men Type: ARTERIAL BLOOD SPECIMEN Ordering Facility: [facility] Address: [address] [place] [address] Performed By: #### A LLBG #### [facility] CLIA [id number] [address] [place] [address] [place] O2 THERAPY NR=Non-Rebreather Mask Normal [facility] Comment on above: Order Comment: Speci men Type: ARTERIAL BLOOD SPECIMEN Ordering Facility: [facility] Address: [address] [place] [address] Performed By: #### A LLBG #### [facility] CLIA [id number] [address] [place] [address] [place] Oxygen (Bld) [Partial pressure] 78 mm Hg Low 85-95 [facility] Comment on above: Order Comment: Speci men Type: ARTERIAL BLOOD SPECIMEN Ordering Facility: [facility] Address: [address] [place] [address] Performed By: #### A LLBG #### [facility] CLIA [id number] [address] [place] [address] [place] Oxyhemoglobin (BldA) [Mass fraction] 90 % Low 95-98 [facility] Comment on above: Order Comment: Speci men Type: ARTERIAL BLOOD SPECIMEN Ordering Facility: [facility] Address: [address] [place] [address] Performed By: #### A LLBG #### [facility] CLIA [id number] [address] [place] [address] [place] pH (Bld) 7.18 [pH] Critically low 7.35-7.45 [facility] Comment on above: Order Comment: Speci men Type: ARTERIAL BLOOD SPECIMEN Ordering Facility: [facility] Address: [address] [place] [address] Performed By: #### A LLBG #### [facility] CLIA [id number] [address] [place] [address] [place] PO2 / FIO2 RATIO 78 mmHg Low >300 [facility] Comment on above: Order Comment: Speci men Type: ARTERIAL BLOOD SPECIMEN Ordering Facility: [facility] Address: [address] [place] [address] Performed By: #### A LLBG #### [facility] CLIA [id number] [address] [place] [address] [place] Potassium [Moles/Vol] 4.0 mmol/L Normal 2.5-6.0 [facility] Comment on above: Order Comment: Speci men Type: ARTERIAL BLOOD SPECIMEN Ordering Facility: [facility] Address: [address] [place] [address] Performed By: #### A LLBG #### [facility] CLIA [id number] [address] [place] [address] [place] Sodium [Moles/Vol] 136 mmol/L Normal 136-144 [facility] Comment on above: Order Comment: Speci men Type: ARTERIAL BLOOD SPECIMEN Ordering Facility: [facility] Address: [address] [place] [address] Performed By: #### A LLBG #### [facility] CLIA [id number] [address] [place] [address] [place] Ammonia Plas-sCncon 11-19-19 24 Ammonia (P) [Moles/Vol] 20 umol/L Normal 11-32 [facility] Comment on above: Order Comment: Speci men Type: BLOOD SPECIMEN Ordering Facility: [facility] Address: [address] [place] [address] Result Comment: Resu lts may be falsely depressed after the administration of Sulfapyridine. Results may be falsely elevated after the administration of Sulfasalazine. Performed By: #### 1 6362-6 #### [facility] CLIA [id number] [address] [place] [address] [place] Bacteria Bld Culton 11-19-19 24 Bacteria identified Cx Nom (Bld) CULTURE, BLOOD: No growth 5 days Normal [facility] Comment on above: Performed By: #### 6 00-7 ####[facility] [id number] [place] [address] [place] Bacteria identified Cx Nom (Bld) CULTURE, BLOOD: No growth 5 days Normal [facility] Comment on above: Performed By: #### 6 00-7 ####[facility] [id number] [place] [address] [place] CBC panel Auto (Bld)on 11-19 Erythrocyte distribution width (RBC) [Ratio] 24.2 % High 11.5-15.0 [facility] Comment on above: Order Comment: Speci men Type: BLOOD SPECIMEN Ordering Facility: [facility] Address: [address] [place] [address] Performed By: #### 5 8410-2 #### [facility] CLIA [id number] [address] [place] [address] [place] Hematocrit (Bld) [Volume fraction] 30.3 % Low 36.0-46.0 [facility] Comment on above: Order Comment: Speci men Type: BLOOD SPECIMEN Ordering Facility: [facility] Address: [address] [place] [address] Performed By: #### 5 8410-2 #### [facility] CLIA [id number] [address] [place] [address] [place] Hemoglobin (Bld) [Mass/Vol] 9.4 g/dL Low 11.5-15.5 [facility] Comment on above: Order Comment: Speci men Type: BLOOD SPECIMEN Ordering Facility: [facility] Address: [address] [place] [address] Performed By: #### 5 8410-2 #### [facility] CLIA [id number] [address] [place] [address] [place] MCH (RBC) [Entitic mass] 23.6 pg Low 26.0-34.0 [facility] Comment on above: Order Comment: Speci men Type: BLOOD SPECIMEN Ordering Facility: [facility] Address: [address] [place] [address] Performed By: #### 5 8410-2 #### [facility] CLIA [id number] [address] [place] MCHC (RBC) [Mass/Vol] 31.0 g/dL Normal 30.5-36.0 [facility] Comment on above: Order Comment: Speci men Type: BLOOD SPECIMEN Ordering Facility: [facility] Address: [address] [place] [address] Performed By: #### 5 8410-2 #### [facility] CLIA [id number] [address] [place] [address] [place] MCV (RBC) [Entitic vol] 76.1 fL Low 80.0-100.0 [facility] Comment on above: Order Comment: Speci men Type: BLOOD SPECIMEN Ordering Facility: [facility] Address: [address] [place] [address] Performed By: #### 5 8410-2 #### [facility] CLIA [id number] [address] [place] [address] [place] Nucleated RBC (Bld) [#/Vol] 10*3/uL Normal <0.01 [facility] Comment on above: Order Comment: Speci men Type: BLOOD SPECIMEN Ordering Facility: [facility] Address: [address] [place] [address] Performed By: #### 5 8410-2 #### [facility] CLIA [id number] [address] [place] [address] [place] Platelet mean volume (Bld) [Entitic vol] Normal [facility] Comment on above: Order Comment: Speci men Type: BLOOD SPECIMEN Ordering Facility: [facility] Address: [address] [place] [address] Result Comment: Unab le to Report. Performed By: #### 5 8410-2 #### [facility] CLIA [id number] [address] [place] [address] [place] Platelets (Bld) [#/Vol] 80 10*3/uL Low 150-400 [facility] Comment on above: Order Comment: Speci men Type: BLOOD SPECIMEN Ordering Facility: [facility] Address: [address] [place] [address] Result Comment: Resu lts checked and verified.No clot detected. Performed By: #### 5 8410-2 #### [facility] CLIA [id number] [address] [place], [place] [address] [facility] RBC (Bld) [#/Vol] 3.98 10*6/uL Normal 3.90-5.20 [facility] Comment on above: Order Comment: Cole lamas Type: BLOOD SPECIMEN Ordering Facility: [facility] Address: [address] [place], [place] [address] Performed By: #### 5 8410-2 #### [facility] CLIA [id number] [address] [place], [place] [address] [facility] WBC (Bld) [#/Vol] 13.45 10*3/uL High 3.70-11.00 [facility] Comment on above: Order Comment: Specchyna lamas Type: BLOOD SPECIMEN Ordering Facility: [facility] Address: [address] [place], [place] [address] Performed By: #### 5 8410-2 #### [facility] CLIA [id number] [address] [place] [address] CONSULTon 11-19-2023 CONSULT HNO ID: [id number] Author: MARIAH TRAVIS APRN.CNP Service: Critical Care Author Type: Nurse Practitioner Type: Consults Filed: 11/19/2023 11:45 Note Text: [facility] SERVICE DATE: November 19, 2023 SERVICE TIME: 0800 Consulting Doctor: Dr. Molina CHIEF COMPLAINT: AMS HPI: This 48 year old female initially presented to [facility] emergency department for abdominal pain, patient met sepsis criteria and required paracentesis rule out SBP which is not available at this hospital therefore she was transferred to [facility]. This morning a rapid response was called [...] PAST SURGICAL HISTORY OF 2018 liver bx [facility] FAMILY HISTORY Problem Relation Age of [...] and shortness (more content not included)... Normal [facility] CT ABD/PEL W IVCONon 024 CT ABD/PEL W IVCON * * *Final Report* * * DATE OF EXAM: Nov 19 2023 7:15AM [facility] 0530 - CT ABD/PEL W IVCON / [...] the bilateral lungs, greater on the left. [employer] Installation Helper (topogram) images: No additional findings. IMPRESSION: 1. [...] bowel, likely reactive to ascites. Dictated by Editorial Cartoonist: Arun Mena MD I, Sam Henderson MD, have supervised the procedure and/or image review, and agree with the above interpretation and report. Real Time Operator: PSCB Transcribe Date/Time: Nov 19 2023 7:18A Dictated by : ARUN MENA, This examination was interpreted and the report reviewed and electronically signed by: SAM HENDERSON MD on Nov 19 2023 7:54AM EST [id number] Normal [facility] Comprehensive metabolic 2000 panelon 11-19-2023 Albumin [Mass/Vol] 1.9 g/dL Low 3.2-5.0 [facility] Comment on above: Order Comment: Cole lamas Type: BLOOD SPECIMEN Ordering Facility: [facility] Address: [address] [place] [address] Performed By: #### 2 4323-8, #### [facility] CLIA [id number] [address] [place] [address] [place] ALP [Catalytic activity/Vol] 158 U/L High 45-117 [facility] Comment on above: Order Comment: Cole lamas Type: BLOOD SPECIMEN Ordering Facility: [facility] Address: [address] [place] [address] Performed By: #### 2 4323-8, #### [facility] CLIA [id number] [address] [place] [address] [place] ALT [Catalytic activity/Vol] 31 U/L Normal 13-61 [facility] Comment on above: Order Comment: Cole lamas Type: BLOOD SPECIMEN Ordering Facility: [facility] Address: [address] [place] [address] Result Comment: Resu lts may be falsely depressed after the administration of Sulfasalazine and/or Sulfapyridine. Performed By: #### 2 4323-8, #### [facility] CLIA [id number] [address] [place], [place] [address] [place] Anion gap [Moles/Vol] 3 mmol/L Low 5-16 [facility] Comment on above: Order Comment: Yeseniai cydney Type: BLOOD SPECIMEN Ordering Facility: [facility] Address: [address] [place] [address] Performed By: #### 2 4328, #### [facility] CLIA [id number] [address] [place] [address] [place] AST [Catalytic activity/Vol] 65 U/L High 8-34 [facility] Comment on above: Order Comment: Yeseniai cydney Type: BLOOD SPECIMEN Ordering Facility: [facility] Address: [address] [place] [address] Result Comment: Resu lts may be falsely depressed after the administration of Sulfasalazine and/or Sulfapyridine. Performed By: #### 2 4328, #### [facility] CLIA [id number] [address] [place] [address] [place] Bilirubin [Mass/Vol] 2.2 mg/dL High 0.2-1.0 [facility] Comment on above: Order Comment: Yeseniai cydney Type: BLOOD SPECIMEN Ordering Facility: [facility] Address: [address] [place] [address] Performed By: #### 2 4328, #### [facility] CLIA [id number] [address] [place], [place] [address] [place] Calcium [Mass/Vol] 8.5 mg/dL Normal 8.5-10.5 [facility] Comment on above: Order Comment: Yeseniai cydney Type: BLOOD SPECIMEN Ordering Facility: [facility] Address: [address] [place] [address] Performed By: #### 2 432-8, #### [facility] CLIA [id number] [address] [place] [address] [place] Chloride [Moles/Vol] 106 mmol/L Normal 98-107 [facility] Comment on above: Order Comment: Speci men Type: BLOOD SPECIMEN Ordering Facility: [facility] Address: [address] [place] [address] Performed By: #### 2 4323-8, 97327-8 #### [facility] CLIA [id number] [address] [place] [address] [place] CO2 [Moles/Vol] 28 mmol/L Normal 21-32 [facility] Comment on above: Order Comment: Speci men Type: BLOOD SPECIMEN Ordering Facility: [facility] Address: [address] [place] [address] Performed By: #### 2 4323-8, 77513-5 #### [facility] CLIA [id number] [address] [place] [address] [place] Creatinine [Mass/Vol] 0.68 mg/dL Normal 0.51-0.95 [facility] Comment on above: Order Comment: Speci men Type: BLOOD SPECIMEN Ordering Facility: [facility] Address: [address] [place] [address] Result Comment: Tamie ents receiving either N-Acetylcysteine (NAC) or Metamizole prior to venipuncture, may have falsely depressed results. Performed By: #### 2 4323-8, 75870-7 #### [facility] CLIA [id number] [address] [place] [address] [place] Creatinine and Glomerular filtration rate.predicted panel (S/P/Bld) 106 mL/min/1.73m??? Normal >=60 [facility] Comment on above: Order Comment: Speci men Type: BLOOD SPECIMEN Ordering Facility: [facility] Address: [address] [place] [address] Result Comment: Connie mated Glomerular Filtration Rate [...] GFR. Performed By: #### 2 4323-8, #### [facility] CLIA [id number] [address] [place], [place] [address] [place] Glucose [Mass/Vol] 89 mg/dL Normal 70-100 [facility] Comment on above: Order Comment: Cole lamas Type: BLOOD SPECIMEN Ordering Facility: [facility] Address: [address] [place] [address] Result Comment: The [place] Diabetes Association (ADA) provides guidance for cutoff [...] Standards of Medical Care in Diabetes 2016, [place] [employer] Association. Diabetes Care. 2016.39(Suppl 1). Results may be falsely elevated after the administration of Sulfapyridine. Results may be falsely depressed after the administration of Sulfasalazine. Performed By: #### 2 4323-8, #### [facility] CLIA [id number] [address] [place], [place] [address] [place] Potassium [Moles/Vol] 4.1 mmol/L Normal 3.5-5.1 [facility] Comment on above: Order Comment: Cole lamas Type: BLOOD SPECIMEN Ordering Facility: [facility] Address: [address] [place] [address] Performed By: #### 2 4323-8, #### [facility] CLIA [id number] [address] [place], [place] [address] [place] Protein [Mass/Vol] 6.8 g/dL Normal 6.0-8.5 [facility] Comment on above: Order Comment: Speci men Type: BLOOD SPECIMEN Ordering Facility: [facility] Address: [address] [place], [place] [address] Performed By: #### 2 4323-8, #### [facility] CLIA [id number] [address] [place], [place] [address] [place] Sodium [Moles/Vol] 137 mmol/L Normal 136-145 [facility] Comment on above: Order Comment: Speci men Type: BLOOD SPECIMEN Ordering Facility: [facility] Address: [address] [place] [address] Performed By: #### 2 4323-8, #### [facility] CLIA [id number] [address] [place] [address] [place] Urea nitrogen [Mass/Vol] 11 mg/dL Normal 7-26 [facility] Comment on above: Order Comment: Speci men Type: BLOOD SPECIMEN Ordering Facility: [facility] Address: [address] [place], [place] [address] Performed By: #### 2 4323-8, #### [facility] CLIA [id number] [address] [place] [address] [place] HCV RNA SerPl PHYLLIS+probe-aCnc on 11-19-2023 HCV RNA PHYLLIS+probe Qn Abnormal HCV RNA not detected by PCR. [facility] Comment on above: Order Comment: Speci men Type: BLOOD SPECIMEN Ordering Facility: [facility] Address: [address] [place], [place] [address] Result Comment: HCV RNA detected by PCR. 80404 4.58 Performed By: #### 2 4323-8, #### [facility] CLIA [id number] [address] [place] [address] [place] HISTORY PHYSICALon HISTORY PHYSICAL HNO ID: [id number] Author: ELVIN MERAZ DO Service: Hospital Medicine Author Type: Physician Type: H&P Filed: 11/19/2023 09:20 Note Text: HISTORY AND PHYSICAL EXAMINATION SERVICE DATE: 11/18/2023 SERVICE TIME: 10:06 PM PRIMARY CARE PHYSICIAN: Dacia Acosta MD Subjective CHIEF COMPLAINT: Abdominal pain HPI: Patient is a 48 year old female who [facility], November 17, 2023, for further evaluation of abdominal pain and distention. Patient has known cirrhosis. Recently, she has been evaluated multiple times at [facility] for similar symptoms. Paracentesis has been [...] PAST SURGICAL HISTORY OF 2018 liver bx [facility] FAMILY HISTORY: FAMILY HISTORY Problem Relation [...] or br (more content not included)... Normal [facility] Iron and Iron binding capaci ty panelon 11-19-2023 Iron [Mass/Vol] 43 ug/dL Low 50-170 [facility] Comment on above: Order Comment: Cole lamas Type: BLOOD SPECIMEN Ordering Facility: [facility] Address: [address] [place] [address] Result Comment: Tamie ents treated with metal-binding drugs (e.g.deferoxamine) may have depressed iron values, as chelated iron may not properly react in the Siemens iron assay. Performed By: #### 3 3959-8, 92455-4 #### [facility] CLIA [id number] [address] [place] [address] [place] Iron binding capacity [Mass/Vol] 286 ug/dL Normal 221-481 [facility] Comment on above: Order Comment: Cole lamas Type: BLOOD SPECIMEN Ordering Facility: [facility] Address: [address] [place] [address] Performed By: #### 3 3959-8, 28910-0 #### [facility] CLIA [id number] [address] [place] [address] [place] Iron/TIBC [Molar ratio] 15.0 % Low 22.0-44.0 [facility] Comment on above: Order Comment: Cole lamas Type: BLOOD SPECIMEN Ordering Facility: [facility] Address: [address] [place] [address] Performed By: #### 3 3959-8, 83850-9 #### [facility] CLIA [id number] [address] [place] [address] [place] Lactate (Bld) [Moles/Vol]on 11-19-2023 Lactate [Moles/Vol] 5.3 mmol/L High 0.4-2.0 [facility] Comment on above: Order Comment: Speci men Type: BLOOD SPECIMEN Ordering Facility: [facility] Address: [address] [place] [address] Result Comment: CALL CRITICAL Performed By: #### 2 4323-8, 12392-9 #### [facility] CLIA [id number] [address] [place] [address] [place] Lactate [Moles/Vol] 2.9 mmol/L High 0.4-2.0 [facility] Comment on above: Order Comment: Speci men Type: BLOOD SPECIMEN Ordering Facility: [facility] Address: [address] [place] [address] Performed By: #### 5 8410-2 #### [facility] CLIA [id number] [address] [place] [address] [place] Lactate [Moles/Vol] 5.1 mmol/L High 0.4-2.0 [facility] Comment on above: Order Comment: Speci men Type: BLOOD SPECIMEN Ordering Facility: [facility] Address: [address] [place] [address] Result Comment: CALL CRITICAL Performed By: #### 3 2693-4 #### [facility] CLIA [id number] [address] [place] [address] [place] Legionella Ag Ur Qlon 2023 Legionella sp Ag Ql (U) Negative Normal Negative [facility] Comment on above: Order Comment: Speci men Type: BLOOD SPECIMEN Ordering Facility: [facility] Address: [address] [place] [address] Performed By: #### 5 8410-2 #### [facility] CLIA [id number] [address] [place], [place] [address] [place] MEDICAL EMERon 02-24-2024 MEDICAL JACQUIE HNO ID: [id number] Author: JAGDEEP LEO APRN.CNP Service: Hospital Medicine [...] needed, move the patient to ICU. Normal [facility] Magnesium SerPl-mCncon 11-19 Magnesium [Mass/Vol] 1.5 mg/dL Low 1.6-2.6 [facility] Comment on above: Order Comment: Cole lamas Type: BLOOD SPECIMEN Ordering Facility: [facility] Address: [address] [place] [address] Performed By: #### 2 4323-8, 90081-0 #### [facility] CLIA [id number] [address] [place], [place] [address] [place] Procalcitonin SerPl-mCncon 0 11-19-2023 Procalcitonin [Mass/Vol] 5.62 ng/mL High 0.00-0.50 [facility] Comment on above: Order Comment: Cole lamas Type: BLOOD SPECIMEN Ordering Facility: [facility] Address: [address] [place] [id number] Result Comment: PCT Concentration Interpretation PCT <=0.1 [...] septic shock. Performed By: #### 3 3959-8, 16972-9 #### [facility] CLIA [id number] [facility] [place] [id number] [place] STREPTOCOCCUS PNEUMONIAE AGo n 11-19-2023 STREPTOCOCCUS PNEUMONIAE AG STREP PNEUMO AG RESULT: Negative for Streptococcus pneumoniae antigen. Presumptive negative for pneumococcal pneumonia, suggesting no current or recent pneumococcal infection. Infection due to S.pneumoniae cannot be ruled out since the antigen present in the sample may be below the detection limit of the test. Normal [facility] Comment on above: Performed By: #### 5 8410-2 #### [facility] CLIA [id number] [address] [place] [place] [id number] [place] XR CHEST 1V [...] related to patient's garments. No definite pneumothorax Real Time Operator: POOJA Transcribe Date/Time: Nov 19 2023 8:47A Dictated by : SAM HENDERSON MD This examination was interpreted and the report reviewed and electronically signed by: SAM HENDERSON MD on Nov 19 2023 8:54AM EST [id number] [facility] ALLIED HEALTHon 11-18-2023 [email or web address] HNO ID: [id number] Author: BROOKLYN COX RT(R) Service: Radiology Author Type: Technologist Type: [employer] Filed: 11/19/2023 07:14 Note Text: Summary: ct [...] PATIENT PRESENTS WITH AN IMPLANTABLE OR ATTACHED MACHINE FORMER: No ALLERGIES: Reviewed and unchanged CONTRAST ALLERGY: [...] November 19, 2023 TIME: 7:14 AM [facility] ED NOTEon 11-18-2023 ED NOTE HNO ID: [id number] Author: JOSIANE HUTCHISON RN Service: Emergency Medicine Author Type: Registered Nurse Type: ED Notes Filed: 11/18/2023 15:50 Note Text: Second attempt to call report made, placed back on hold [facility] ED NOTE HNO ID: [id number] Author: JOSIANE HUTCHISON RN Service: Emergency Medicine Author Type: Registered Nurse Type: ED Notes Filed: 11/18/2023 15:49 Note Text: Attempted to call report on patient, placed on hold for 15 mins unable to give report. [facility] ED NOTE HNO ID: [id number] Author: JOSIANE HUTCHISON RN Service: Emergency Medicine Author Type: Registered Nurse Type: ED Notes Filed: 11/18/2023 16:05 Note Text: Patient assisted to bedside toilet, clean depends given. Offered patient wipes to clean herself up with patient wiped hands and refused to clean rest of stool off. Transport at bedside for report. [facility] ED NOTE HNO ID: [id number] Author: JOSIANE HUTCHISON, RN Service: Emergency Medicine Author Type: Registered Nurse Type: ED Notes Filed: 11/18/2023 14:15 Note Text: [facility] ETA: 60-90mins [facility] ED NOTE HNO ID: [id number] Author: JOSIANE HUTCHISON, RN Service: Emergency Medicine Author Type: Registered Nurse Type: ED Notes Filed: 11/18/2023 14:10 Note Text: Accepted to [facility] [phone] Nurse to Nurse [phone] [facility] ED NOTE HNO ID: [id number] Author: JOSIANE HUTCHISON, RN Service: Emergency Medicine Author Type: Registered Nurse Type: ED Notes Filed: 11/18/2023 16:15 Note Text: 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 [facility] ED NOTE HNO ID: [id number] Author: JOSIANE HUTCHISON, RN Service: Emergency Medicine Author Type: Registered Nurse Type: ED Notes Filed: 11/18/2023 09:16 Note Text: [facility] contacted by this nurse they state they are unsure when the patient will have a bed assignment. [facility] ED NOTE HNO ID: [id number] Author: JOSIANE HUTCHISON RN Service: Emergency Medicine Author Type: Registered Nurse Type: ED Notes Filed: 11/18/2023 16:08 Note Text: Patient had liquid BM in bed, patient assisted to bedside toilet bedding changed, clean gown given, depends given to patient, clean gown given, patient assisted back to bed. [facility] ED NOTE HNO ID: [id number] Author: JOSIANE HUTCHISON RN Service: Emergency Medicine Author Type: Registered Nurse Type: ED Notes Filed: 11/18/2023 09:23 Note Text: Respiratory paged for breathing treatment [facility] ED NOTE HNO ID: [id number] Author: JOSIANE HUTCHISON RN Service: Emergency Medicine [...] in her nose. Dr Peterson to bedside. [facility] ED NOTE HNO ID: [id number] Author: JOSIANE HUTCHISON RN Service: Emergency Medicine Author Type: Registered Nurse Type: ED Notes Filed: 11/18/2023 09:19 Note Text: Patient requesting to walk to the restroom, patient assisted to the restroom [facility] ED NOTE HNO ID: [id number] Author: JOSIANE HUTCHISON RN Service: Emergency Medicine Author Type: Registered Nurse Type: ED Notes Filed: 11/18/2023 09:19 Note Text: Meal tray given [facility] ED NOTE HNO ID: [id number] Author: JOSIANE HUTCHISON RN Service: Emergency Medicine Author Type: Registered Nurse Type: ED Notes Filed: 11/18/2023 08:02 Note Text: This nurse woke patient up, patient repositioned. Oxygen placed back on. Meal tray ordered. Patient denies other needs at this time. [facility] ED NOTE HNO ID: [id number] Author: JIMI DOMINGUEZ RN Service: Emergency Medicine Author Type: Registered Nurse Type: ED Notes Filed: 11/18/2023 05:37 Note Text: Patient removed oxygen and will not keep pulse ox on. Call light remains in reach. SRx2 up. [facility] ED NOTE HNO ID: [id number] Author: JIMI DOMINGUEZ RN Service: Emergency Medicine Author Type: Registered Nurse Type: ED Notes Filed: 11/18/2023 05:08 Note Text: MD speaking with patient regarding pain control. [facility] ED NOTE HNO ID: [id number] Author: JIMI DOMINGUEZ RN Service: Emergency Medicine Author Type: Registered Nurse Type: ED Notes Filed: 11/18/2023 04:33 Note Text: Patient ambulatory to with steady gait- po fluids given. Call light in reach [facility] ED NOTE HNO ID: [id number] Author: JIMI DOMINGUEZ RN Service: Emergency Medicine Author Type: Registered Nurse Type: ED Notes Filed: 11/18/2023 02:50 Note Text: Oxygen sats improved with oxygen while resting/sleeping to 96% on 2 liters [facility] ED NOTE HNO ID: [id number] Author: JIMI DOMINGUEZ RN Service: Emergency Medicine Author Type: Registered Nurse Type: ED Notes Filed: 11/18/2023 02:47 Note Text: Patient falling asleep and oxygen sats drop to 87-88% - oxygen applied at 2 liters [facility] ED NOTE HNO ID: [id number] Author: JIMI DOMINGUEZ RN Service: Emergency Medicine Author Type: Registered Nurse Type: ED Notes Filed: 11/18/2023 02:30 Note Text: Patient put weatherization and housing inspector light - requesting more ibuprofen and/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 Advised patient she just had motrin at 2347. Patient requesting TV on. [facility] ED NOTE HNO ID: [id number] Author: JIMI DOMINGUEZ RN Service: Emergency Medicine Author Type: Registered Nurse Type: ED Notes Filed: 11/18/2023 02:59 Note Text: Sprite given along with jello and pudding. Call light in reach. No n/v [facility] ED NOTE HNO ID: [id number] Author: JIMI DOMINGUEZ RN Service: Emergency Medicine Author Type: Registered Nurse Type: ED Notes Filed: 11/18/2023 01:42 Note Text: Patient weatherization and housing inspector light - patient given another blanket. Patient requesting personal cell phone which was charging and given to patient. [facility] ED NOTE HNO ID: [id number] Author: JIMI DOMINGUEZ RN Service: Emergency Medicine [...] updated patient also on bed status at [facility] and that it could possibly be in the morning before we get a bed. Call light in reach. [facility] ED NOTE HNO ID: [id number] Author: JIMI DOMINGUEZ RN Service: Emergency Medicine Author Type: Registered Nurse Type: ED Notes Filed: 11/18/2023 00:48 Note Text: Patient requesting more pain meds and/or something to sleep. MD at bedside talking with patient [facility] HIGH SENSITIVITY TROPONIN T (THIRD) 3 HRS AFTER INITIALon 11-18-2023 Troponin T.cardiac High sensitivity method [Mass/Vol] 13 ng/L High <12 [facility] Comment on above: Order Comment: Speci men Type: BLOOD SPECIMEN Ordering Facility: [facility] Address: [facility] [address], [place] [address] Result Comment: When assessing risk for acute [...] 30 day MACE. Performed By: #### L [id number] #### [facility] CLIA [id number] [address] [place] [address] ALLIED HEALTHon 11-17-2023 ALLIED HEALTH HNO ID: [id number] Author: MAURICE KUHN TECHNOLOGIST Service: Radiology Author [...] PATIENT PRESENTS WITH AN IMPLANTABLE OR ATTACHED MACHINE FORMER: No RADIOLOGY DEPARTMENT: CT; Exam(s) Completed: Brain and General X-ray: Exam(s) Completed: Chest X-Ray PERIPHERAL IV DATA: Not applicable SIGNED BY: TECHNOLOGIST Marina November 17, 2023 8:44 PM [facility] APAP SerPl-mCncon 11-17-2023 Acetaminophen [Mass/Vol] 8 ug/mL Low 10-30 [facility] Comment on above: Order Comment: Speci men Type: BLOOD SPECIMEN Ordering Facility: [facility] Address: [address] [place], [place] [address] Result Comment: Toxi c > 150 ug/mL 4 hours post ingestion The [address] Varghese nomogram can be used to estimate the probability of hepatotoxicity via the relationship of plasma acetaminophen concentration to the post ingestion interval. (Sara. Pediatrics. 1975. 55:[address] et al[address] Arch Bearing Grinder Med. 1981. 141:380 to 385). Reference ranges and high/low indicator flags are provided as general guidelines only. The treating physician must determine appropriate target levels/dosing based on the specific clinical situation. Performed By: #### 5 643-2, 4024-6, 3298-7 #### [facility] CLIA [id number] [address] [place] [address] [place] [facility] CBC W Auto Differential pane l (Bld)on 11-17-2023 Basophils (Bld) [#/Vol] 0.03 10*3/uL Normal <0.11 [facility] Comment on above: Order Comment: Speci men Type: BLOOD SPECIMEN Ordering Facility: [facility] Address: [address] [place] [address] Performed By: #### 5 7021-8 #### [facility] CLIA [id number] [address] [place] [address] [place] Basophils/100 WBC (Bld) 0.3 % Normal [facility] Comment on above: Order Comment: Speci men Type: BLOOD SPECIMEN Ordering Facility: [facility] Address: [address] [place] [address] Result Comment: Diff erential confirmed by visual scan of peripheral blood smear slide. Performed By: #### 5 7021-8 #### [facility] CLIA [id number] [address] [place] [address] [facility] Differential cell count method Nom (Bld) Auto Normal [facility] Comment on above: Order Comment: Speci men Type: BLOOD SPECIMEN Ordering Facility: [facility] Address: [address] [place] [address] Performed By: #### 5 7021-8 #### [facility] CLIA [id number] [address] [place] [address] [place] Eosinophils (Bld) [#/Vol] 0.09 10*3/uL Normal <0.46 [facility] Comment on above: Order Comment: Speci men Type: BLOOD SPECIMEN Ordering Facility: [facility] Address: [address] [place] [address] Performed By: #### 5 7021-8 #### [facility] CLIA [id number] [address] [place] [address] [place] Eosinophils/100 WBC (Bld) 0.8 % Normal [facility] Comment on above: Order Comment: Speci men Type: BLOOD SPECIMEN Ordering Facility: [facility] Address: [address] [place] [address] Performed By: #### 5 7021-8 #### [facility] CLIA [id number] [address] [place] [id number] [place] Erythrocyte distribution width (RBC) [Ratio] 23.6 % High 11.5-15.0 [facility] Comment on above: Order Comment: Speci men Type: BLOOD SPECIMEN Ordering Facility: [facility] Address: [address] [place] [address] Performed By: #### 5 7021-8 #### [facility] CLIA [id number] [address] [id number] [place] Hematocrit (Bld) [Volume fraction] 33.8 % Low 36.0-46.0 [facility] Comment on above: Order Comment: Speci men Type: BLOOD SPECIMEN Ordering Facility: [facility] Address: [address] [place] [address] Performed By: #### 5 7021-8 #### [facility] CLIA [id number] [address] [id number] [place] Hemoglobin (Bld) [Mass/Vol] 10.3 g/dL Low 11.5-15.5 [facility] Comment on above: Order Comment: Speci men Type: BLOOD SPECIMEN Ordering Facility: [facility] Address: [address] [place] [address] Performed By: #### 5 7021-8 #### [facility] CLIA [id number] [address] [place] [id number] [place] Immature granulocytes (Bld) [#/Vol] 0.08 10*3/uL Normal <0.10 [facility] Comment on above: Order Comment: Speci men Type: BLOOD SPECIMEN Ordering Facility: [facility] Address: [address] [place] [address] Performed By: #### 5 7021-8 #### [facility] CLIA [id number] [address] [place] [address] [facility] [place] Immature granulocytes/100 WBC (Bld) 0.7 % Normal [facility] Comment on above: Order Comment: Speci men Type: BLOOD SPECIMEN Ordering Facility: [facility] Address: [address] [place] [address] Performed By: #### 5 7021-8 #### [facility] CLIA [id number] [address] [place] [address] [place] Lymphocytes (Bld) [#/Vol] 2.43 10*3/uL Normal 1.00-4.00 [facility] Comment on above: Order Comment: Speci men Type: BLOOD SPECIMEN Ordering Facility: [facility] Address: [address] [place] [address] Performed By: #### 5 7021-8 #### [facility] CLIA [id number] [address] [facility] Lymphocytes/100 WBC (Bld) 21.1 % Normal [facility] Comment on above: Order Comment: Speci men Type: BLOOD SPECIMEN Ordering Facility: [facility] Address: [address] [place] [address] Performed By: #### 5 7021-8 #### [facility] CLIA [id number] [address] [place] [address] [place] MCH (RBC) [Entitic mass] 23.7 pg Low 26.0-34.0 [facility] Comment on above: Order Comment: Speci men Type: BLOOD SPECIMEN Ordering Facility: [facility] Address: [address] [place] [address] Performed By: #### 5 7021-8 #### [facility] CLIA [id number] [address] [place] [address] [place] MCHC (RBC) [Mass/Vol] 30.5 g/dL Normal 30.5-36.0 [facility] Comment on above: Order Comment: Speci men Type: BLOOD SPECIMEN Ordering Facility: [facility] Address: [address] [place] [address] Performed By: #### 5 7021-8 #### [facility] CLIA [id number] [address] [place] [address] [place] MCV (RBC) [Entitic vol] 77.7 fL Low 80.0-100.0 [facility] Comment on above: Order Comment: Speci men Type: BLOOD SPECIMEN Ordering Facility: [facility] Address: [address] [place] [address] Performed By: #### 5 7021-8 #### [facility] CLIA [id number] [address] [place] [address] [place] Monocytes (Bld) [#/Vol] 1.40 10*3/uL High <0.87 [facility] Comment on above: Order Comment: Speci men Type: BLOOD SPECIMEN Ordering Facility: [facility] Address: [address] [place] [address] Performed By: #### 5 7021-8 #### [facility] CLIA [id number] [address] [place] [address] [place] Monocytes/100 WBC (Bld) 12.2 % Normal [facility] Comment on above: Order Comment: Speci men Type: BLOOD SPECIMEN Ordering Facility: [facility] Address: [address] [place] [address] Performed By: #### 5 7021-8 #### [facility] CLIA [id number] [address] [place] [address] [place] Neutrophils (Bld) [#/Vol] 7.47 10*3/uL Normal 1.45-7.50 [facility] Comment on above: Order Comment: Speci men Type: BLOOD SPECIMEN Ordering Facility: [facility] Address: [address] [place] [address] Performed By: #### 5 7021-8 #### [facility] CLIA [id number] [address] [place] [address] [place] Neutrophils/100 WBC (Bld) 64.9 % Normal [facility] Comment on above: Order Comment: Speci men Type: BLOOD SPECIMEN Ordering Facility: [facility] Address: [address] [place] [address] Performed By: #### 5 7021-8 #### [facility] CLIA [id number] [address] [place] [address] [place] Nucleated RBC (Bld) [#/Vol] Normal [facility] Comment on above: Order Comment: Speci men Type: BLOOD SPECIMEN Ordering Facility: [facility] Address: [address] [place] [address] Performed By: #### 5 7021-8 #### [facility] CLIA [id number] [address] [place] [address] [place] Nucleated RBC/100 WBC (Bld) [Ratio] Normal [facility] Comment on above: Order Comment: Speci men Type: BLOOD SPECIMEN Ordering Facility: [facility] Address: [address] [place] [address] Performed By: #### 5 7021-8 #### [facility] CLIA [id number] [address] [place] [address] [place] Platelet mean volume (Bld) [Entitic vol] 9.8 fL Normal 9.0-12.7 [facility] Comment on above: Order Comment: Speci men Type: BLOOD SPECIMEN Ordering Facility: [facility] Address: [address] [place] [address] Performed By: #### 5 7021-8 #### [facility] CLIA [id number] [address] [place] [address] [place] Platelets (Bld) [#/Vol] 112 10*3/uL Low 150-400 [facility] Comment on above: Order Comment: Speci men Type: BLOOD SPECIMEN Ordering Facility: [facility] Address: [address] [place] [address] Result Comment: no c lot detected Platelet Abnormal Distribution.Reviewed. Performed By: #### 5 7021-8 #### [facility] CLIA [id number] [address] [place] [address] [facility] RBC (Bld) [#/Vol] 4.35 10*6/uL Normal 3.90-5.20 [facility] Comment on above: Order Comment: Speci men Type: BLOOD SPECIMEN Ordering Facility: [facility] Address: [address] [place] [address] Performed By: #### 5 7021-8 #### [facility] CLIA [id number] [address] [place] [address] [facility] WBC (Bld) [#/Vol] 11.50 10*3/uL High 3.70-11.00 [facility] Comment on above: Order Comment: Speci men Type: BLOOD SPECIMEN Ordering Facility: [facility] Address: [address] [place] [address] Performed By: #### 5 7021-8 #### [facility] CLIA [id number] [address] [place] [id number] [facility] CT BRAIN WO IVCONon 11-17-[address] BRAIN WO IVCON * * *Final Report* * * DATE OF EXAM: Nov 17 2023 8:40PM [facility] 0504 - CT BRAIN WO IVCON / [...] control(AEC) and iterative recon COMPARISON: None. RESULT: Sheet Rock Installation Helper (topogram) images: No additional findings. Post-operative change: [...] are unremarkable. IMPRESSION: No acute intracranial abnormality. Real Time Operator: PSCB Transcribe Date/Time: Nov 17 2023 8:41P Dictated by : MAYITO STEVENS MD This examination was interpreted and the report reviewed and electronically signed by: MAYITO STEVENS MD on Nov 17 2023 8:47PM EST [id number] Normal [facility] Comprehensive metabolic 2000 panelon 11-17-2023 Albumin [Mass/Vol] 2.6 g/dL Low 3.9-4.9 [facility] Comment on above: Order Comment: Cole lamas Type: BLOOD SPECIMEN Ordering Facility: [facility] Address: [address] [place] [address] Performed By: #### 2 4323-8, 3040-3, 42463-2, 44532-1 #### [facility] CLIA [id number] [address] [place] [address] [place] ALP [Catalytic activity/Vol] 245 U/L High 34-123 [facility] Comment on above: Order Comment: Cole lamas Type: BLOOD SPECIMEN Ordering Facility: [facility] Address: [address] [place] [address] Performed By: #### 2 4323-8, 3040-3, 84519-3, 02419-0 #### [facility] CLIA [id number] [address] [place] [address] [place] ALT With P-5'-P [Catalytic activity/Vol] 29 U/L Normal 7-38 [facility] Comment on above: Order Comment: Cole lamas Type: BLOOD SPECIMEN Ordering Facility: [facility] Address: [address] [place] [address] Performed By: #### 2 4323-8, 3040-3, 76469-0, 33017-0 #### [facility] CLIA [id number] [address] [place] [address] [place] Anion gap [Moles/Vol] 9 mmol/L Normal 9-18 [facility] Comment on above: Order Comment: Speci men Type: BLOOD SPECIMEN Ordering Facility: [facility] Address: [address] [place] [address] Performed By: #### 2 4323-8, 3040-3, 07522-2, 10869-5 #### [facility] CLIA [id number] [address] [place] [address] [place] AST With P-5'-P [Catalytic activity/Vol] 78 U/L High 13-35 [facility] Comment on above: Order Comment: Speci men Type: BLOOD SPECIMEN Ordering Facility: [facility] Address: [address] [place] [address] Performed By: #### 2 4323-8, 3040-3, 50136-2, 52405-1 #### [facility] CLIA [id number] [address] [place] [address] [place] Bilirubin [Mass/Vol] 3.0 mg/dL High 0.2-1.3 [facility] Comment on above: Order Comment: Speci men Type: BLOOD SPECIMEN Ordering Facility: [facility] Address: [address] [place] [address] Performed By: #### 2 4323-8, 3040-3, 88193-9, 21514-0 #### [facility] CLIA [id number] [address] [place] [address] [place] Calcium [Mass/Vol] 8.6 mg/dL Normal 8.5-10.2 [facility] Comment on above: Order Comment: Speci men Type: BLOOD SPECIMEN Ordering Facility: [facility] Address: [address] [place] [address] Performed By: #### 2 4323-8, 3040-3, 75168-1, 62501-9 #### [facility] CLIA [id number] [address] [place] [address] [place] Chloride [Moles/Vol] 101 mmol/L Normal 97-105 [facility] Comment on above: Order Comment: Cole lamas Type: BLOOD SPECIMEN Ordering Facility: [facility] Address: [address] [place] [address] Performed By: #### 2 4323-8, 3040-3, 04218-5, 29674-0 #### [facility] CLIA [id number] [address] [place] [address] [place] CO2 [Moles/Vol] 24 mmol/L Normal 22-30 [facility] Comment on above: Order Comment: Cole lamas Type: BLOOD SPECIMEN Ordering Facility: [facility] Address: [address] [place] [address] Performed By: #### 2 4323-8, 3040-3, 70095-8, 69782-6 #### [facility] CLIA [id number] [address] [place] [id number] [facility] Creatinine [Mass/Vol] 0.72 mg/dL Normal 0.58-0.96 [facility] Comment on above: Order Comment: Cole lamas Type: BLOOD SPECIMEN Ordering Facility: [facility] Address: [address] [place] [address] Performed By: #### 2 4323-8, 3040-3, 67859-7, 90456-0 #### [facility] CLIA [id number] [address] [place] [address] [facility] Creatinine and Glomerular filtration rate.predicted panel (S/P/Bld) 102 mL/min/1.73m??? Normal >=60 [facility] Comment on above: Order Comment: Cole lamas Type: BLOOD SPECIMEN Ordering Facility: [facility] Address: [address] [place] [address] Result Comment: Connie mated Glomerular Filtration Rate [...] GFR. Performed By: #### 2 4323-8, 3040-3, 88151-9, 01211-7 #### [facility] CLIA [id number] [address] [facility] [place] [address] [place] Glucose [Mass/Vol] 121 mg/dL High 74-99 [facility] Comment on above: Order Comment: Cole lamas Type: BLOOD SPECIMEN Ordering Facility: [facility] Address: [address] [place] [address] Result Comment: The [place] [employer] Association (ADA) provides guidance for cutoff [...] Standards of Medical Care in Diabetes 2016, [place] [employer]. Diabetes Care. 2016.39(Suppl 1). Performed By: #### 2 4323-8, 0-3, 29238-0, 95569-2 #### [facility] CLIA [id number] [address] [place] [address] [place] Potassium [Moles/Vol] 4.0 mmol/L Normal 3.7-5.1 [facility] Comment on above: Order Comment: Cole lamas Type: BLOOD SPECIMEN Ordering Facility: [facility] Address: [address] [place] [address] Performed By: #### 2 4323-8, 3040-3, 99853-4, 15242-9 #### [facility] CLIA [id number] [address] [place] [address] [place] Protein [Mass/Vol] 7.8 g/dL Normal 6.3-8.0 [facility] Comment on above: Order Comment: Speci men Type: BLOOD SPECIMEN Ordering Facility: [facility] Address: [address] [place] [address] Performed By: #### 2 4323-8, 3040-3, 25353-0, 37592-7 #### [facility] CLIA [id number] [address] [place] [address] [place] Sodium [Moles/Vol] 134 mmol/L Low 136-144 [facility] Comment on above: Order Comment: Speci men Type: BLOOD SPECIMEN Ordering Facility: [facility] Address: [address] [place] [address] Performed By: #### 2 4323-8, 3040-3, 23793-5, 53694-3 #### [facility] CLIA [id number] [address] [place] [address] [place] Urea nitrogen [Mass/Vol] 9 mg/dL Normal 7-21 [facility] Comment on above: Order Comment: Speci men Type: BLOOD SPECIMEN Ordering Facility: [facility] Address: [address] [place] [address] Performed By: #### 2 4323-8, 3040-3, 82698-6, 69458-2 #### [facility] CLIA [id number] [address] [place] [address] [place] ECG COMPLETEon 11-17-2023 ECG COMPLETE Ventricular Rate : 8 2 BPM Atrial Rate : 82 BPM P-R Interval : 152 ms QRS Duration : 74 ms Q-T Interval : 400 ms QTC Calculation(Bazett) : 467 ms Calculated P Lihue : 63 degrees Calculated R Lihue : 2 degrees Calculated T Lihue : 65 degrees NORMAL SINUS RHYTHM NONSPECIFIC ST-T WAVE CHANGES CANNOT RULE OUT ANTERIOR INFARCT , AGE UNDETERMINED ABNORMAL ECG NO PREVIOUS ECGS AVAILABLE Confirmed by MD BENZ VINAYAK ([id number]) on 11/22/2023 8:00:16 AM NAME : CAROLINA HIGHTOWER PID : [id number] : 1975 Gender : Female Race : ORD : [id number] Procedure Date : Nov 17 2023 19:48:43 Edit Date : Nov 22 2023 08:00:20 Diagnosis: NORMAL SINUS RHYTHM NONSPECIFIC ST-T WAVE CHANGES CANNOT RULE OUT ANTERIOR INFARCT , AGE UNDETERMINED ABNORMAL ECG NO PREVIOUS ECGS AVAILABLE Confirmed by MD BENZ VINAYAK ([id number]) on 11/22/2023 8:00:16 AM Test Reason : Chest Pain Location : 191 : [facility] ED Overread By : MD BENZ VINAYAK Edited By : MD BENZ VINAYAK Referred By : , Acquired by : TRESA NGUYEN [facility] ED NOTEon 11-17-2023 ED NOTE HNO ID: [id number] Author: JIMI DOMINGUEZ RN Service: Emergency Medicine Author Type: Registered Nurse Type: ED Notes Filed: 11/17/2023 20:40 Note Text: Patient absolutely refuses to go to [place] or [place] or [facility]. MD notified [facility] ED NOTE HNO ID: [id number] Author: JIMI DOMINGUEZ RN Service: Emergency Medicine Author Type: Registered Nurse Type: ED Notes Filed: 11/17/2023 20:18 Note Text: Patient ambulatory to with steady gait. Urine obtained and sent [facility] ED NOTE HNO ID: [id number] Author: JIMI DOMINGUEZ RN Service: Emergency Medicine Author Type: Registered Nurse Type: ED Notes Filed: 11/17/2023 19:42 Note Text: Patient brought to ER by daughter - patient states seen at [facility] and per her PCP told to go to another ER. Per daughter patient is confused, abd swelling and SOB and dizziness with frequent falls. Monitor applied. EKG obtained. [facility] ED PROV NOTEon 11-17-2023 ED PROV NOTE HNO ID: [id number] Author: KOKO RUIZ MD Service: Emergency Medicine [...] distended than baseline. She typically follows at [facility] and has been seen there several times [...] PAST SURGICAL HISTORY OF 2018 liver bx [facility] FAMILY HISTORY Problem Relation Age of [...] Palpations: Abd (more content not included)... Normal [facility] Ethanol SerPl-mCncon 024 Ethanol [Mass/Vol] mg/dL Normal <11 [facility] Comment on above: Order Comment: Speci men Type: BLOOD SPECIMEN Ordering Facility: [facility] Address: [address] [place] [address] Performed By: #### 5 643-2, 4024-6, 3298-7 #### [facility] CLIA [id number] [address] [place] [address] [place] FLUABV+SARS-CoV-2+RSV Pnl Re sp PHYLLIS+probeon 11-17-2023 FLUABV+SARS-CoV-2+RS V Pnl Resp PHYLLIS+probe COVID 19 RESULT: Not detected The method used is RT-PCR or an equivalent NAAT method. Reference Range(the expected result in uninfected individuals): Not detected INFLUENZA A PCR: Not detected INFLUENZA B PCR: Not detected RSV PCR: Not detected Normal [facility] Comment on above: Performed By: #### 9 5941-1 ####[facility] [id number] [place] [address] [place] HIGH SENSITIVITY TROPONIN T (INITIAL)on 11-17-2023 Troponin T.cardiac High sensitivity method [Mass/Vol] 16 ng/L High <12 [facility] Comment on above: Order Comment: Cole lamas Type: BLOOD SPECIMEN Ordering Facility: [facility] Address: [address] [place] [address] Result Comment: When assessing risk for acute [...] 30 day MACE. Performed By: #### L [id number] #### [facility] CLIA [id number] [address] [place] [address] [place] HIGH SENSITIVITY TROPONIN T (SECOND)on 11-17-2023 Troponin T.cardiac High sensitivity method [Mass/Vol] 16 ng/L High <12 [facility] Comment on above: Order Comment: Cole lamas Type: BLOOD SPECIMEN Ordering Facility: [facility] Address: [address] [place] [address] Result Comment: When assessing risk for acute [...] By: #### 5 643-2, 4024-6, 3298-7 #### [facility] CLIA [id number] [address] [place] [address] [place] Lipase SerPl-cCncon 11-17-19 24 Lipase [Catalytic activity/Vol] 23 U/L Normal 16-61 [facility] Comment on above: Order Comment: Yeseniai men Type: BLOOD SPECIMENOrdering Facility: [facility] Address: [address] [place] [address] Performed By: #### 2 4323-8, 3040-3, 66255-6, 89709-1 ####[facility] [id number] [place] [address] [place] Magnesium SerPl-mCncon 11-17 Magnesium [Mass/Vol] 1.6 mg/dL Low 1.7-2.3 [facility] Comment on above: Order Comment: Yeseniai [facility] Type: BLOOD SPECIMENOrdering Facility: [facility] Address: [address] [place] [address] Performed By: #### 2 4323-8, 3040-3, 94656-5, 62591-2 ####[facility] [id number] [place] [address] [place] NT-proBNP SerPl-mCncon 11-17 Natriuretic peptide.B prohormone N-Terminal [Mass/Vol] 83 pg/mL Normal <125 [facility] Comment on above: Order Comment: Yeseniai [facility] Type: BLOOD SPECIMENOrdering Facility: [facility] Address: [address] [place] [address] Performed By: #### 2 4323-8, 3040-3, 83528-6, 97328-0 ####[facility] [id number] [place] [address] [facility] [place] Salicylates SerPl-mCncon Salicylates [Mass/Vol] mg/dL Low 3.0-30.0 [facility] Comment on above: Order Comment: Speci men Type: BLOOD SPECIMEN Ordering Facility: [facility] Address: [address] [place] [address] Result Comment: The therapeutic range varies and has been reported to be 3.0 to 10.0 mg/dL for anti pyretic/analgesic conditions and 15.0 to 30.0 mg/dL for anti inflammatory/rheumatic fever conditions. Ranges published by the instrument snout puller. Reference ranges and high/low indicator flags are provided as general guidelines only. The treating physician must determine appropriate target levels/dosing based on the specific clinical situation. Performed By: #### 5 643-2, 4024-6, 3298-7 #### [facility] CLIA [id number] [address] [place] [address] [place] TOX SCREEN ROUT URon 024 Amphetamines Confirm (U) [Mass/Vol] Negative Normal Negative [facility] Comment on above: Order Comment: Speci men Type: BLOOD SPECIMEN Ordering Facility: [facility] Address: [address] [place] [address] Result Comment: Cuto ff threshold at 1000 ng/mL. Performed By: #### 5 643-2, 4024-6, 3298-7 #### [facility] CLIA [id number] [address] [place] [address] [place] BARBITURATES, URINE Negative Normal Negative [facility] Comment on above: Order Comment: Speci men Type: BLOOD SPECIMEN Ordering Facility: [facility] Address: [address] [place] [address] Result Comment: Cuto ff threshold at 200 ng/mL. Performed By: #### 5 643-2, 4024-6, 3298-7 #### [facility] CLIA [id number] [address] [facility] [address] [place] BENZODIAZEPINES, UR Negative Normal Negative [facility] Comment on above: Order Comment: Speci men Type: BLOOD SPECIMEN Ordering Facility: [facility] Address: [address] [place] [address] Result Comment: Cuto ff threshold at 200 ng/mL. Performed By: #### 5 643-2, 4024-6, 7 #### [facility] CLIA [id number] [address] [place] [address] [place] Cannabinoids Screen Ql (U) Positive Abnormal Negative [facility] Comment on above: Order Comment: Speci men Type: BLOOD SPECIMEN Ordering Facility: [facility] Address: [address] [place] [address] Result Comment: Cuto ff threshold at 50 ng/mL. Performed By: #### 5 643-2, 4024-6, 7 #### [facility] CLIA [id number] [address] [place] [address] [place] Cocaine Ql (U) Negative Normal Negative [facility] Comment on above: Order Comment: Speci men Type: BLOOD SPECIMEN Ordering Facility: [facility] Address: [address] [place] [address] Result Comment: Cuto ff threshold at 300 ng/mL. Performed By: #### 5 643-2, 4024-6, 7 #### [facility] CLIA [id number] [address] [place] [address] [place] Ethanol (U) [Mass/Vol] <11 Normal <11 [facility] Comment on above: Order Comment: Speci men Type: BLOOD SPECIMEN Ordering Facility: [facility] Address: [address] [place] [address] Performed By: #### 5 643-2, 4024-6, 8057 #### [facility] CLIA [id number] [address] [place] [address] [place] Opiates Screen Ql (U) Negative Normal Negative [facility] Comment on above: Order Comment: Speci men Type: BLOOD SPECIMEN Ordering Facility: [facility] Address: [address] [place] [address] Result Comment: Cuto ff threshold at 300 ng/mL. Performed By: #### 5 643-2, 4024-6, 3298-7 #### [facility] CLIA [id number] [address] [place] [address] [facility] oxyCODONE cutoff Screen (U) [Mass/Vol] Negative Normal Negative [facility] Comment on above: Order Comment: Speci men Type: BLOOD SPECIMEN Ordering Facility: [facility] Address: [address] [place] [address] Result Comment: Cuto ff threshold at 100 ng/mL. Performed By: #### 5 643-2, 4024-6, 3298-7 #### [facility] CLIA [id number] [address] [place] [address] [facility] Phencyclidine Ql (U) Negative Normal Negative [facility] Comment on above: Order Comment: Speci men Type: BLOOD SPECIMEN Ordering Facility: [facility] Address: [address] [place] [address] Result Comment: Cuto ff threshold at 25 ng/mL. Performed By: #### 5 643-2, 4024-6, 3298-7 #### [facility] CLIA [id number] [address] [place] [address] [facility] Urinalysis complete panel (U )on 11-17-2023 Bacteria LM.HPF (Urine sed) [#/Area] Few Abnormal None Seen [facility] Comment on above: Order Comment: Speci men Type: URINE SPECIMEN Ordering Facility: [facility] Address: [address] [place] [address] Performed By: #### 2 4356-8 #### [facility] CLIA [id number] [address] [place] [address] [facility] [place] Bilirubin Ql (U) 2+ Abnormal Negative [facility] Comment on above: Order Comment: Speci men Type: URINE SPECIMEN Ordering Facility: [facility] Address: [address] [place] [address] Result Comment: Sugg est correlation with clinical findings and serum bilirubin if clinically indicated. Performed By: #### 2 4356-8 #### [facility] CLIA [id number] [address] [place] [address] [facility] [place] Clarity (Unsp spec) Slightly Cloudy Abnormal Clear [facility] Comment on above: Order Comment: Speci men Type: URINE SPECIMEN Ordering Facility: [facility] Address: [address] [place] [address] Performed By: #### 2 4356-8 #### [facility] [facility] CLIA [id number] [address] [place] [address] [facility] Color (U) Josiane Abnormal Yellow [facility] Comment on above: Order Comment: Speci men Type: URINE SPECIMEN Ordering Facility: [facility] Address: [address] [place] [address] Performed By: #### 2 4356-8 #### [facility] CLIA [id number] [address] [place] [address] [facility] Epithelial cells LM.HPF (Urine sed) [#/Area] Few Normal [facility] Comment on above: Order Comment: Speci men Type: URINE SPECIMEN Ordering Facility: [facility] Address: [address] [place] [address] Performed By: #### 2 4356-8 #### [facility] CLIA [id number] [address] [place] [address] [facility] [place] Glucose Test strip (U) [Mass/Vol] Negative Normal Negative [facility] Comment on above: Order Comment: Speci men Type: URINE SPECIMEN Ordering Facility: [facility] Address: [address] [place] [address] Performed By: #### 2 4356-8 #### [facility] CLIA [id number] [address] [place] [address] [place] Hemoglobin Ql (U) 1+ Abnormal Negative [facility] Comment on above: Order Comment: Speci men Type: URINE SPECIMEN Ordering Facility: [facility] Address: [address] [place] [address] Performed By: #### 2 4356-8 #### [facility] CLIA [id number] [address] [place] [address] [place] Ketones Ql (U) Negative Normal Negative [facility] Comment on above: Order Comment: Speci men Type: URINE SPECIMEN Ordering Facility: [facility] Address: [address] [place] [address] Performed By: #### 2 4356-8 #### [facility] CLIA [id number] [address] [place] [address] [facility] [place] Leukocyte esterase Test strip Ql (U) Negative Normal Negative [facility] Comment on above: Order Comment: Speci men Type: URINE SPECIMEN Ordering Facility: [facility] Address: [address] [place] [address] Performed By: #### 2 4356-8 #### [facility] CLIA [id number] [address] [place] [address] [place] Nitrite Ql (U) Negative Normal Negative [facility] Comment on above: Order Comment: Speci men Type: URINE SPECIMEN Ordering Facility: [facility] Address: [address] [place] [address] Performed By: #### 2 4356-8 #### [facility] CLIA [id number] [address] [place] [address] [place] pH (U) 6.0 [pH] Normal 5.0-8.0 [facility] Comment on above: Order Comment: Speci men Type: URINE SPECIMEN Ordering Facility: [facility] Address: [address] [place] [address] Performed By: #### 2 4356-8 #### [facility] CLIA [id number] [address] [place] [address] [place] Protein (U) [Mass/Vol] 1+ Abnormal Negative [facility] Comment on above: Order Comment: Speci men Type: URINE SPECIMEN Ordering Facility: [facility] Address: [address] [place] [address] Performed By: #### 2 4356-8 #### [facility] CLIA [id number] [address] [place] [address] RBC LM.HPF (Urine sed) [#/Area] 6-10 /HPF Abnormal 0-3 /HPF [facility] Comment on above: Order Comment: Speci men Type: URINE SPECIMEN Ordering Facility: [facility] Address: [address] [place] [address] Performed By: #### 2 4356-8 #### [facility] CLIA [id number] [address] [place] [address] [place] [facility] Specific gravity (U) [Rel density] >=1.030 High 1.005-1.03 0 [facility] Comment on above: Order Comment: Speci men Type: URINE SPECIMEN Ordering Facility: [facility] Address: [address] [place] [address] Performed By: #### 2 4356-8 #### [facility] CLIA [id number] [address] [place] [address] Urobilinogen Ql (U) 4.0 EU/dL Abnormal 0.2-1.0 EU/dL [facility] Comment on above: Order Comment: Speci men Type: URINE SPECIMEN Ordering Facility: [facility] Address: [address] [place] [address] Performed By: #### 2 4356-8 #### [facility] CLIA [id number] [address] [place] [address] WBC LM.HPF (Urine sed) [#/Area] 0-5 /HPF Normal 0-5 /HPF [facility] Comment on above: Order Comment: Speci men Type: URINE SPECIMEN Ordering Facility: [facility] Address: [address] [place] [address] Performed By: #### 2 4356-8 #### [facility] CLIA [id number] [address] [place], [place] [address] [place] XR CHEST 1V FRONTALon [...] viral pneumonitis in the appropriate clinical setting. Real Time Operator: POOJA Transcribe Date/Time: Nov 17 2023 8:50P Dictated by : ARMANDO RAY DO This examination was interpreted and the report reviewed and electronically signed by: ARMANDO RAY DO on Nov 17 2023 8:51PM EST [id number] [facility] CAROLINA HIGHTOWER ([id number]) 1975 F Date Time Provider Department 11/11/23 [facility] During your visit today, we recorded [...] pain . Reports she has been to [facility] ER 3 times in last week. States [...] Provider. Patient unable to confirm any upcoming [facility] appt as of now. This nurse attempted to contact [facility] x 3-no answer at this time and voicemail asks to leave message and they will return call within 24 hours. Pt asking if she must go back to [facility] ER now or can she try to [...] Status:Closed by MELISA VICK MA on 11/11/23 [facility] CNPN Telephone (FAMPWS) CAROLINA HIGHTOWER ([id number]) 1975 F Date Time Provider Department 11/07/23 [facility] During your visit today, we recorded the following information about you: Jesi Jason LPN 11/07/2023 4:26 PM Signed Pt calls to report she went to [facility] ER today for abdominal pain and bloating. [...] Encounter Status:Closed by DACIA ACOSTA on 11/07/23 [facility] 11-03-2023 CNPN Telephone (FAMPWS) CAROLINA HIGHTOWER ([id number]) 1975 F Date Time Provider Department 11/03/23 [facility] During your visit today, we recorded the [...] Fully Assessed Reason for Visit: Patient Question [0462] Order(s):ondansetron orally disintegrating (ZOFRAN ODT) 4 mg [...] Encounter Status:Closed by ZAKIA HUGHES on 11/03/23 [facility] CNOVon 11-01-2023 CNOV Office Visit (UCWSTR ) CAROLINA HIGHTOWER ([id number]) 1975 F Date Time Provider Department 11/01/23 3:30 PM WILLIAMS SALVADOR [facility] During your visit today, we recorded the following information about you: Temperature Pulse Respiration Blood pressure 97.5 degrees 82/minute 20/minute 119/86 Weight 92.1 kg Williams Salvador PA-C 11/01/2023 4:05 PM Signed [facility] [address], [place] [id number] Williams Salvador PA-C 11/01/2023 4:28 PM Signed This note was created using [employer] Passenger[employer]. Subjective Carolina Hightower is a 48 year [...] PAST SURGICAL HISTORY OF 2018 liver bx [facility] FAMILY HISTORY Problem Relation Age of [...] putting a (more content not included)... Normal [facility] CNCOon 09-22-2023 CNCO Letter Text Normal [facility] 36on 09-20-2023 36 Unable to contact patient X2 Normal [facility] 36on 09-16-2023 36 S: Patient admitted to: [facility] 09/09/23 B: Discharged on : 09/15/23 A: Hospital follow up call initiated to discuss any medication changes, follow up appointments and discharge instructions: Small bowel obstruction R: No contact x 1 at : [phone] Normal [facility] BASIC METABOLIC PANELon - Anion gap [Moles/Vol] 5 mmol/L Normal - [facility] Comment on above: Performed By: #### L AB15 ####Shredding Specialist: HALLEY HERNANDEZ ([phone])[address] Calcium [Mass/Vol] 8.3 mg/dL Low 8.4-10.4 [facility] Comment on above: Performed By: #### L AB15 ####Shredding Specialist: HALLEY HERNANDEZ ([phone])[address] Chloride [Moles/Vol] 107 mmol/L Normal 98-107 [facility] Comment on above: Performed By: #### L AB15 ####Shredding Specialist: HALLEY HERNANDEZ ([phone])[facility])[address] [place] [address] CO2 [Moles/Vol] 23 mmol/L Normal 22-30 [facility] Comment on above: Performed By: #### L AB15 ####Shredding Specialist: HALLEY HERNANDEZ ([phone])[facility])[address] [place] [address] Creatinine [Mass/Vol] 0.71 mg/dL Normal 0.52-1.04 [facility] Comment on above: Performed By: #### L AB15 ####Shredding Specialist: HALLEY HERNANDEZ ([phone])[facility])[address] [place] [address] GLOMERULAR FILTRATION RATE ML/MIN/1.73 SQ M.PREDICTED >90.0 Normal >60.0 [facility] Comment on above: Result Comment: Calc ulation based on the Chronic Kidney Disease Epidemiology Collaboration (CKD-EPI) equation refit without adjustment for race Performed By: #### L AB15 ####Shredding Specialist: HALLEY HERNANDEZ ([phone])[facility])[address] [place] [address] Glucose [Mass/Vol] 128 mg/dL High 70-100 [facility] Comment on above: Performed By: #### L AB15 ####Shredding Specialist: HALLEY HERNANDEZ ([phone])[facility])[address] [place] [address] [place] Potassium [Moles/Vol] 3.4 mmol/L Low 3.5-5.1 [facility] Comment on above: Performed By: #### L AB15 ####Shredding Specialist: HALLEY HERNANDEZ ([phone])[facility])[address] [place] [address] [place] Sodium [Moles/Vol] 136 mmol/L Normal 135-145 [facility] Comment on above: Performed By: #### L AB15 ####Shredding Specialist: HALLEY ALEJANDROTimothy ([phone])[facility])[address] [place] [address] Urea nitrogen [Mass/Vol] 4 mg/dL Low 7-17 [facility] Comment on above: Performed By: #### L AB15 ####Shredding Specialist: HALLEY ALEJANDROTimothy ([phone])[facility])[address] [place] [address] Basic metabolic 1998 panelon 09-15-2023 Anion gap [Moles/Vol] 5 mmol/L 3 - 13 mmol/L [facility] Calcium [Mass/Vol] 8.3 mg/dL Low 8.4 - 10. 4 mg/dL [facility] Chloride [Moles/Vol] 107 mmol/L 98 - 10 7 mmol/L [facility] CO2 [Moles/Vol] 23 mmol/L 22 - 30 mmol/L [facility] Creatinine [Mass/Vol] 0.71 mg/dL 0.52 - 1.04 mg/dL [facility] GFR/1.73 sq M.predicted MDRD (S/P/Bld) [Vol rate/Area] - PINF [facility] Comment on above: Calculation based on the Chronic Kidney Disease Epidemiology Collaboration (CKD-EPI) equation refit without adjustment for race Glucose [Mass/Vol] 128 mg/dL High 70 - 100 mg/dL [facility] Interpretation and review of laboratory results Abnormal [facility] Potassium [Moles/Vol] 3.4 mmol/L Low 3.5 - 5.1 mmol/L [facility] Sodium [Moles/Vol] 136 mmol/L 135 - 145 mmol/L [facility] Urea nitrogen [Mass/Vol] 4 mg/dL Low 7 - 17 mg/dL [facility] CARECOORDon 09-15-2023 [facility] Social work follow u p on discharge. SHELL notified by patients bedside RN patient needs assist with transport to home. SHELL spoke to patient to confirm address on file is correct. She reports she typically will [facility] and uses their uber/lyft service. SHELL placed call to [facility] transport [phone]. Transport arranged for meat pickler at [address] [place] [address] between 4:12-6:12pm. They will call the unit 15 minutes prior to their arrival . Ref # [id number]. antisqueak worker updated patients bedside RN, who will update the patient. Normal [facility] CBC (HEMOGRAM)on 09-15-2023 Erythrocyte distribution width (RBC) [Ratio] 21.7 % High 11.5-14.5 [facility] Comment on above: Result Comment: I-An isocytosis Performed By: #### L [id number] #### Shredding Specialist: HALLEY HERNANDEZ ([phone]) [facility]) [address] [place] [address] ERYTHROCYTE MEAN CORPUSCULAR HEMOGLOBIN CONCENTRATION (G/DL) BY AUTOMATED 31.5 % Low 32.0-36.0 [facility] Comment on above: Performed By: #### L [id number] #### Shredding Specialist: HALLEY HERNANDEZ ([phone]) [facility]) [address] [place] [address] Hematocrit (Bld) [Volume fraction] 25.3 % Low 35.0-47.0 [facility] Comment on above: Performed By: #### L [id number] #### Shredding Specialist: HALLEY HERNANDEZ ([phone]) [facility]) [address] [place] [address] Hemoglobin (Bld) [Mass/Vol] 8.0 g/dL Low 11.7-16.0 [facility] Comment on above: Performed By: #### L [id number] #### Shredding Specialist: HALLEY HERNANDEZ ([phone]) [facility]) [address] [place] [address] MCH (RBC) [Entitic mass] 22.7 pg Low 26.0-34.0 [facility] Comment on above: Performed By: #### L [id number] #### Shredding Specialist: HALLEY HERNANDEZ ([phone]) [facility]) [address] [place] [address] [place] MCV (RBC) [Entitic vol] 72.0 fL Low 80.0-98.0 [facility] Comment on above: Performed By: #### L [id number] #### Shredding Specialist: HALLEY HERNANDEZ ([phone]) [facility]) [address] [place] [address] Platelet mean volume (Bld) [Entitic vol] 9.6 fL Normal 7.4-12.4 [facility] Comment on above: Performed By: #### L [id number] #### Shredding Specialist: HALLEY HERNANDEZ ([phone]) [facility]) [address] [place] [address] Platelets (Bld) [#/Vol] 55 10*3/uL Low 140-440 [facility] Comment on above: Result Comment: I-Th rombocytopenia Performed By: #### L [id number] #### Shredding Specialist: HALLEY HERNANDEZ ([id number]) [facility]) [address] [place] [address] RBC (Bld) [#/Vol] 3.51 10*6/uL Low 3.8-5.20 [facility] Comment on above: Performed By: #### L [id number] #### Shredding Specialist: HALLEY HERNANDEZ ([phone]) [facility]) [address] [place] [address] WBC (Bld) [#/Vol] 4.5 10*3/uL Normal 3.6-10.7 [facility] Comment on above: Performed By: #### L [id number] #### Shredding Specialist: HALLEY HERNANDEZ ([phone]) [facility]) [address] [place] [address] CBC panel Auto (Bld)on 09-15 Erythrocyte distribution width (RBC) [Ratio] 21.7 % High 11.5 - 14.5 % [facility] Comment on above: I-Anisocytosis Hematocrit (Bld) [Volume fraction] 25.3 % Low 35.0 - 47.0 % [facility] Hemoglobin (Bld) [Mass/Vol] 8.0 g/dL Low 11.7 - 16.0 g/dL [facility] Interpretation and review of laboratory results Abnormal [facility] MCH (RBC) [Entitic mass] 22.7 pg Low 26.0 - 34.0 pg [facility] MCHC (RBC) [Mass/Vol] 31.5 % Low 32.0 - 36.0 % [facility] MCV (RBC) [Entitic vol] 72.0 fL Low 80.0 - 98.0 fL [facility] Platelet mean volume (Bld) [Entitic vol] 9.6 fL 7.4 - 12.4 fL [facility] Platelets (Bld) [#/Vol] 55 10*3/uL Low 140 - 440 10*3/uL [facility] Comment on above: I-Thrombocytopenia RBC (Bld) [#/Vol] 3.51 10*6/uL Low 3.8 - 5.20 10*6/uL [facility] WBC (Bld) [#/Vol] 4.5 10*3/uL 3.6 - 10.7 10*3/uL [facility] Progress Noteon 09-15-2023 Progress Note Nutrition Assessment [...] (S/p paracentesis 09/14 with 1.7L removed) Ascites Dust Box Tender Strength: Not Performed Nutrition Assessment: 47yo F [...] On: Kcal/kg Weight Used for Energy Requirements: [place] Weight for Energy Calculation (kg): 50 kg Total Energy Requirements (kcals/day): 27-32 kcal/kg = 7137-9412 kcal/day Weight Used for Protein Requirements: [place] Weight in Kg Used for Protein Requirements: [...] lb) (stated) % Weight Change (Calculated): 5 [place] Body Weight (lbs) (Calculated): 110 lbs [place] Body Weight (Kg) (Calculated): 50 kg % [place] Body Weight (Calculated): 190.8 % BMI (kg/m2) [...] Edema, Hemodynamic (more content not included)... Normal [facility] BASIC METABOLIC PANELon 12 Anion gap [Moles/Vol] 5 mmol/L Normal -13 [facility] Comment on above: Performed By: #### L AB15 ####Shredding Specialist: HALLEY HERNANDEZ ([id number])[facility] ([address] Calcium [Mass/Vol] 8.2 mg/dL Low 8.4-10.4 [facility] Comment on above: Performed By: #### L AB15 ####Shredding Specialist: HALLEY HERNANDEZ ([phone])[facility])[address] [place] [address] Chloride [Moles/Vol] 110 mmol/L High 98-107 [facility] Comment on above: Performed By: #### L AB15 ####Shredding Specialist: HALLEY HERNANDEZ ([phone])[facility])[address] [place] [address] CO2 [Moles/Vol] 21 mmol/L Low 22-30 [facility] Comment on above: Performed By: #### L AB15 ####Shredding Specialist: HALLEY HERNANDEZ ([phone])[facility])[address] [place] [address] Creatinine [Mass/Vol] 0.62 mg/dL Normal 0.52-1.04 [facility] Comment on above: Performed By: #### L AB15 ####Shredding Specialist: HALLEY HERNANDEZ ([phone])[facility])[address] [place] [address] GLOMERULAR FILTRATION RATE ML/MIN/1.73 SQ M.PREDICTED >90.0 Normal >60.0 [facility] Comment on above: Result Comment: Calc ulation based on the Chronic Kidney Disease Epidemiology Collaboration (CKD-EPI) equation refit without adjustment for race Performed By: #### L AB15 ####Shredding Specialist: HALLEY HERNANDEZ ([phone])[facility])[address] [place] [address] Glucose [Mass/Vol] 145 mg/dL High 70-100 [facility] Comment on above: Performed By: #### L AB15 ####Shredding Specialist: HALLEY HERNANDEZ ([phone])[facility])[address] [place] [address] Potassium [Moles/Vol] 3.7 mmol/L Normal 3.5-5.1 [facility] Comment on above: Performed By: #### L AB15 ####Shredding Specialist: HALLEY [phone])[facility] ([facility])[address] [place] [address] Sodium [Moles/Vol] 136 mmol/L Normal 135-145 [facility] Comment on above: Performed By: #### L AB15 ####Shredding Specialist: HALLEY HERNANDEZ ([phone])[facility] ([facility])[address] [place] [address] Urea nitrogen [Mass/Vol] 4 mg/dL Low 7-17 [facility] Comment on above: Performed By: #### L AB15 ####Shredding Specialist: HALLEY SOASLIZZ ([phone])[facility] ([facility])[address] [place] [address] Basic metabolic 1998 panelon 09-14-2023 Anion gap [Moles/Vol] 5 mmol/L 3 - 13 mmol/L [facility] Calcium [Mass/Vol] 8.2 mg/dL Low 8.4 - 10. 4 mg/dL [facility] Chloride [Moles/Vol] 110 mmol/L High 98 - 10 7 mmol/L [facility] CO2 [Moles/Vol] 21 mmol/L Low 22 - 30 mmol/L [facility] Creatinine [Mass/Vol] 0.62 mg/dL 0.52 - 1.04 mg/dL [facility] GFR/1.73 sq M.predicted MDRD (S/P/Bld) [Vol rate/Area] - PINF [facility] Comment on above: Calculation based on the Chronic Kidney Disease Epidemiology Collaboration (CKD-EPI) equation refit without adjustment for race Glucose [Mass/Vol] 145 mg/dL High 70 - 100 mg/dL [facility] Interpretation and review of laboratory results Abnormal [facility] Potassium [Moles/Vol] 3.7 mmol/L 3.5 - 5.1 mmol/L [facility] Sodium [Moles/Vol] 136 mmol/L 135 - 145 mmol/L [facility] Urea nitrogen [Mass/Vol] 4 mg/dL Low 7 - 17 mg/dL [facility] CARECOORDon 09-14-2023 [facility]ER[facility] Chart reviewed. Tamie ent had paracentesis today with 1700 ml removed. Surgery is following patient for likely ileus -->no plans for intervention and recommend ADAT. Current discharge plan is home no needs once medically stable. Normal [facility] CBC (HEMOGRAM)on 09-14-2023 Erythrocyte distribution width (RBC) [Ratio] 21.3 % High 11.5-14.5 [facility] Comment on above: Result Comment: I-An isocytosis Performed By: #### L [id number] #### Shredding Specialist: JAVID LUTHER ([phone]) [facility] ([facility]) [address] ERYTHROCYTE MEAN CORPUSCULAR HEMOGLOBIN CONCENTRATION (G/DL) BY AUTOMATED 31.7 % Low 32.0-36.0 [facility] Comment on above: Performed By: #### L [id number] #### Shredding Specialist: JAVID LUTHER ([id number]) [facility] ([facility]) [address] Hematocrit (Bld) [Volume fraction] 24.9 % Low 35.0-47.0 [facility] Comment on above: Performed By: #### L [id number] #### Shredding Specialist: JAVID LUTHER ([id number]) [facility] ([facility]) [address] Hemoglobin (Bld) [Mass/Vol] 7.9 g/dL Low 11.7-16.0 [facility] Comment on above: Performed By: #### L [id number] #### Shredding Specialist: JAVID LUTHER ([id number]) [facility] ([facility]) [address] MCH (RBC) [Entitic mass] 22.9 pg Low 26.0-34.0 [facility] Comment on above: Performed By: #### L [id number] #### Shredding Specialist: JAVID LUTHER ([id number]) [facility] ([facility]) [address] MCV (RBC) [Entitic vol] 72.1 fL Low 80.0-98.0 [facility] Comment on above: Performed By: #### L [id number] #### Shredding Specialist: JAVID LUTHER ([id number]) [facility]) [address] Platelet mean volume (Bld) [Entitic vol] 9.1 fL Normal 7.4-12.4 [facility] Comment on above: Performed By: #### L [id number] #### Shredding Specialist: JAVID LUTHER ([phone]) [facility] ([facility]) [address] Platelets (Bld) [#/Vol] 59 10*3/uL Low 140-440 [facility] Comment on above: Result Comment: I-Th rombocytopenia Performed By: #### L [id number] #### Shredding Specialist: JAVID LUTHER ([id number]) [facility] ([facility]) [address] RBC (Bld) [#/Vol] 3.45 10*6/uL Low 3.8-5.20 [facility] Comment on above: Performed By: #### L [id number] #### Shredding Specialist: JAVID LUTHER ([phone]) [facility] ([facility] [address] WBC (Bld) [#/Vol] 4.6 10*3/uL Normal 3.6-10.7 [facility] Comment on above: Performed By: #### L [id number] #### Shredding Specialist: JAVID LUTHER ([phone]) [facility] ([facility]) [address] CBC panel Auto (Bld)Ordered By: Brooklyn Salter on 09-14-2023 Erythrocyte distribution width (RBC) [Ratio] 21.3 % High 11.5 - 14.5 % [facility] Comment on above: I-Anisocytosis Hematocrit (Bld) [Volume fraction] 24.9 % Low 35.0 - 47.0 % [facility] Hemoglobin (Bld) [Mass/Vol] 7.9 g/dL Low 11.7 - 16.0 g/dL [facility] Interpretation and review of laboratory results Abnormal [facility] MCH (RBC) [Entitic mass] 22.9 pg Low 26.0 - 34.0 pg [facility] MCHC (RBC) [Mass/Vol] 31.7 % Low 32.0 - 36.0 % [facility] MCV (RBC) [Entitic vol] 72.1 fL Low 80.0 - 98.0 fL [facility] Platelet mean volume (Bld) [Entitic vol] 9.1 fL 7.4 - 12.4 fL [facility] Platelets (Bld) [#/Vol] 59 10*3/uL Low 140 - 440 10*3/uL [facility] Comment on above: I-Thrombocytopenia RBC (Bld) [#/Vol] 3.45 10*6/uL Low 3.8 - 5.20 10*6/uL [facility] WBC (Bld) [#/Vol] 4.6 10*3/uL 3.6 - 10.7 10*3/uL [facility] Guidance for paracentesis of Peritoneumon 09-14-2023 [...] Electronically Signed Date/Time: 09/14/2023 11:36 AM EST [employer] Patient Name: CAROLINA HIGHTOWER : 1975 Exam Date/Time: 09/14/2023 09:36 Procedure: US GUIDED ABDOMINAL PARACENTESIS Ordering Provider: TAN HARIKRISHNA Reason For Exam: Abdominal distention, pain PROCEDURE: Ultrasound-guided paracentesis PROCEDURAL PERSONNEL Advanced Practice Provider: Windy Pastor PA-C Attending physician, Samir Huerta M.D., was available in the department if needed. Indication: Ascites Additional clinical history: None Complications: No immediate complications. [facility] Windy Pastor PA -C - 09/14/2023 [...] Electronically Signed Date/Time: 09/14/2023 11:36 AM EST [facility] Radiology Study observation (narrative) [facility] Guidance for paracentesis of PeritoneumOrdered By: Windy Pastor on 09-14-2023 [facility] Work Phone: Nursing Noteon 09-14-2023 Nursing Note Patient to ultrasoun d department for paracentesis. History, medications and allergies reviewed. Samuel Pastor PA-C in to speak with patient. Informed consent obtained. 1700 mL clear yellow colored fluid removed. Patient tolerated procedure well. Bandaid applied to site. Patient discharged to [facility] US GUIDED ABDOMINAL PARACENT [facility] 09-14-2023 US GUIDED ABDOMINAL PARACENTESIS Patient Name: [...] Signed Date/Time: 09/14/2023 11:36 AM EST Normal [facility] BASIC METABOLIC PANELon 12- Anion gap [Moles/Vol] 4 mmol/L Normal 3-13 [facility] Comment on above: Performed By: #### L [id number] ####Shredding Specialist: HALLEY HERNANDEZ ([phone])[address] Calcium [Mass/Vol] 8.3 mg/dL Low 8.4-10.4 [facility] Comment on above: Performed By: #### L AB15 ####Shredding Specialist: HALLEY HERNANDEZ ([phone])[address] [place] [address] [place] Chloride [Moles/Vol] 113 mmol/L High 98-107 [facility] Comment on above: Performed By: #### L AB15 ####Shredding Specialist: HALLEY HERNANDEZ ([phone])[facility] ([facility])[address] [place] [address] CO2 [Moles/Vol] 21 mmol/L Low 22-30 [facility] Comment on above: Performed By: #### L AB15 ####Shredding Specialist: HALLEY HERNANDEZ ([phone])[facility] ([facility])[address] [place] [address] Creatinine [Mass/Vol] 0.68 mg/dL Normal 0.52-1.04 [facility] Comment on above: Performed By: #### L AB15 ####Shredding Specialist: HALLEY HERNANDEZ ([phone])[facility] ([facility])[address] [place] [address] GLOMERULAR FILTRATION RATE ML/MIN/1.73 SQ M.PREDICTED >90.0 Normal >60.0 [facility] Comment on above: Result Comment: Calc ulation based on the Chronic Kidney Disease Epidemiology Collaboration (CKD-EPI) equation refit without adjustment for race Performed By: #### L AB15 ####Shredding Specialist: HALLEY HERNANDEZ ([phone])[facility] ([facility])[address] [place] [address] [place] Glucose [Mass/Vol] 136 mg/dL High 70-100 [facility] Comment on above: Performed By: #### L AB15 ####Shredding Specialist: HALLEY HERNANDEZ ([phone])[facility] ([facility])[address] [place] [address] [place] Potassium [Moles/Vol] 3.9 mmol/L Normal 3.5-5.1 [facility] Comment on above: Performed By: #### L AB15 ####Shredding Specialist: HALLEY [phone])[facility] ([facility])[address] [place] [address] [place] Sodium [Moles/Vol] 137 mmol/L Normal 135-145 [facility] Comment on above: Performed By: #### L AB15 ####Shredding Specialist: HALLEY HERNANDEZ ([phone])[address] Urea nitrogen [Mass/Vol] 2 mg/dL Low 7-17 [facility] Comment on above: Performed By: #### L AB15 ####Shredding Specialist: HALLEY HERNANDEZ ([phone])[facility])[address] [place] [address] Basic metabolic 1998 panelon 09-13-2023 Anion gap [Moles/Vol] 4 mmol/L 3 - 13 mmol/L [facility] Calcium [Mass/Vol] 8.3 mg/dL Low 8.4 - 10. 4 mg/dL [facility] Chloride [Moles/Vol] 113 mmol/L High 98 - 10 7 mmol/L [facility] CO2 [Moles/Vol] 21 mmol/L Low 22 - 30 mmol/L [facility] Creatinine [Mass/Vol] 0.68 mg/dL 0.52 - 1.04 mg/dL [facility] GFR/1.73 sq M.predicted MDRD (S/P/Bld) [Vol rate/Area] - PINF [facility] Comment on above: Calculation based on the Chronic Kidney Disease Epidemiology Collaboration (CKD-EPI) equation refit without adjustment for race Glucose [Mass/Vol] 136 mg/dL High 70 - 100 mg/dL [facility] Interpretation and review of laboratory results Abnormal [facility] Potassium [Moles/Vol] 3.9 mmol/L 3.5 - 5.1 mmol/L [facility] Sodium [Moles/Vol] 137 mmol/L 135 - 145 mmol/L [facility] Urea nitrogen [Mass/Vol] 2 mg/dL Low 7 - 17 mg/dL [facility] CBC (HEMOGRAM)on 09-13-2023 Erythrocyte distribution width (RBC) [Ratio] 21.1 % High 11.5-14.5 [facility] Comment on above: Result Comment: I-An isocytosis Performed By: #### L [id number] ####Shredding Specialist: HALLEY HERNANDEZ ([phone])[facility] [address] ERYTHROCYTE MEAN CORPUSCULAR HEMOGLOBIN CONCENTRATION (G/DL) BY AUTOMATED 31.0 % Low 32.0-36.0 [facility] Comment on above: Performed By: #### L [id number] ####Shredding Specialist: HALLEY HERNANDEZ ([phone])[facility])[address] [place] [address] Hematocrit (Bld) [Volume fraction] 26.1 % Low 35.0-47.0 [facility] Comment on above: Performed By: #### L [id number] ####Shredding Specialist: HALLEY HERNANDEZ ([phone])[facility])[address] [place] [address] Hemoglobin (Bld) [Mass/Vol] 8.1 g/dL Low 11.7-16.0 [facility] Comment on above: Performed By: #### L [id number] ####Shredding Specialist: HALLEY HERNANDEZ ([phone])[facility])[address] [place] [address] MCH (RBC) [Entitic mass] 22.4 pg Low 26.0-34.0 [facility] Comment on above: Performed By: #### L [id number] ####Shredding Specialist: HALLEY HERNANDEZ ([phone])[facility])[address] [place] [address] MCV (RBC) [Entitic vol] 72.4 fL Low 80.0-98.0 [facility] Comment on above: Performed By: #### L [id number] ####Shredding Specialist: HALLEY HERNANDEZ ([phone])[facility])[address] [place] [address] Platelet mean volume (Bld) [Entitic vol] 8.8 fL Normal 7.4-12.4 [facility] Comment on above: Performed By: #### L [id number] ####Shredding Specialist: HALLEY HERNANDEZ ([phone])[facility])[address] [place] [address] [place] Platelets (Bld) [#/Vol] 56 10*3/uL Low 140-440 [facility] Comment on above: Result Comment: I-Th rombocytopenia Performed By: #### L [id number] ####Shredding Specialist: HALLEY HERNANDEZ ([phone])[facility] ([facility])[address] [place] [address] RBC (Bld) [#/Vol] 3.60 10*6/uL Low 3.8-5.20 [facility] Comment on above: Performed By: #### L [id number] ####Shredding Specialist: HALLEY HERNANDEZ ([phone])[facility] ([facility])[address] [place] [address] WBC (Bld) [#/Vol] 4.4 10*3/uL Normal 3.6-10.7 [facility] Comment on above: Performed By: #### L [id number] ####Shredding Specialist: HALLEY HERNANDEZ ([phone])[facility] ([facility])[address] [place] [address] CBC panel Auto (Bld)Ordered By: Robin Riojas on 09-13-2023 Erythrocyte distribution width (RBC) [Ratio] 21.1 % High 11.5 - 14.5 % [facility] Comment on above: I-Anisocytosis Hematocrit (Bld) [Volume fraction] 26.1 % Low 35.0 - 47.0 % [facility] Hemoglobin (Bld) [Mass/Vol] 8.1 g/dL Low 11.7 - 16.0 g/dL [facility] Interpretation and review of laboratory results Abnormal [facility] MCH (RBC) [Entitic mass] 22.4 pg Low 26.0 - 34.0 pg [facility] MCHC (RBC) [Mass/Vol] 31.0 % Low 32.0 - 36.0 % [facility] MCV (RBC) [Entitic vol] 72.4 fL Low 80.0 - 98.0 fL [facility] Platelet mean volume (Bld) [Entitic vol] 8.8 fL 7.4 - 12.4 fL [facility] Platelets (Bld) [#/Vol] 56 10*3/uL Low 140 - 440 10*3/uL [facility] Comment on above: I-Thrombocytopenia RBC (Bld) [#/Vol] 3.60 10*6/uL Low 3.8 - 5.20 10*6/uL [facility] WBC (Bld) [#/Vol] 4.4 10*3/uL 3.6 - 10.7 10*3/uL [facility] AMMONIAon 09-12-2023 Ammonia (P) [Moles/Vol] 42 umol/L High 9-30 [facility] Comment on above: Performed By: #### L [id number] ####Shredding Specialist: HALLEY HERNANDEZ ([phone])[facility] ([address] [place] 09-12-2023 [place] Care Managment Initi al Assessment Date: 09/12/2023 Patient Name: Carolina Hightower : 1975 Patient Information Source of Information: Patient Cognition/Language: WFL - Within Functional Limits Permission given to speak with patient installation service representative/caregiver as indicated: Yes Confirmation of Payer with patient/family: Yes Payer Name: [facility] Medicaid [place]: No Confirmation of Primary Care Physician: Confirmed [...] pain, nausea and vomiting, hx: polysubstance abuse. [facility] consulted. Discharge plan home with Significant Other. Meg Herrmann RN Normal [facility] CBC (HEMOGRAM)on 09-12-2023 Erythrocyte distribution width (RBC) [Ratio] 21.1 % High 11.5-14.5 [facility] Comment on above: Result Comment: I-An isocytosis Performed By: #### L [id number] #### Shredding Specialist: JAVID LUTHER ([phone]) [facility] [address] ERYTHROCYTE MEAN CORPUSCULAR HEMOGLOBIN CONCENTRATION (G/DL) BY AUTOMATED 31.5 % Low 32.0-36.0 [facility] Comment on above: Performed By: #### L [id number] #### Shredding Specialist: JAVID LUTHER ([phone]) [facility] ([facility] [address] Hematocrit (Bld) [Volume fraction] 25.0 % Low 35.0-47.0 [facility] Comment on above: Performed By: #### L [id number] #### Shredding Specialist: JAVID LUTHER ([id number]) [facility] [address] Hemoglobin (Bld) [Mass/Vol] 7.9 g/dL Low 11.7-16.0 [facility] Comment on above: Performed By: #### L [id number] #### Shredding Specialist: JAVID LUTHER ([phone]) [facility] ([facility]) [address] MCH (RBC) [Entitic mass] 22.5 pg Low 26.0-34.0 [facility] Comment on above: Performed By: #### L [id number] #### Shredding Specialist: JAVID LUTHER ([phone]) [facility] [place] ([facility]) [address] MCV (RBC) [Entitic vol] 71.5 fL Low 80.0-98.0 [facility] Comment on above: Performed By: #### L [id number] #### Shredding Specialist: JAVID LUTHER ([phone]) [facility] [address] Platelet mean volume (Bld) [Entitic vol] 8.9 fL Normal 7.4-12.4 [facility] Comment on above: Performed By: #### L [id number] #### Shredding Specialist: JAVID LUTHER ([id number]) [facility] ([facility] [address] Platelets (Bld) [#/Vol] 58 10*3/uL Low 140-440 [facility] Comment on above: Result Comment: I-Th rombocytopenia Performed By: #### L [id number] #### Shredding Specialist: JAVID LUTHER ([id number]) [facility] [place] ([facility]) [address] RBC (Bld) [#/Vol] 3.50 10*6/uL Low 3.8-5.20 [facility] Comment on above: Performed By: #### L [id number] #### Shredding Specialist: JAVID LUTHER ([phone]) [facility] ([facility]) [address] WBC (Bld) [#/Vol] 5.1 10*3/uL Normal 3.6-10.7 [facility] Comment on above: Performed By: #### L [id number] #### Shredding Specialist: AJVID LUTHER ([phone]) [facility] ([facility]) [address] CBC panel Auto (Bld)Ordered By: Luis Alfredo Brand on 09-12-2023 Erythrocyte distribution width (RBC) [Ratio] 21.1 % High 11.5 - 14.5 % [facility] Comment on above: I-Anisocytosis Hematocrit (Bld) [Volume fraction] 25.0 % Low 35.0 - 47.0 % [facility] Hemoglobin (Bld) [Mass/Vol] 7.9 g/dL Low 11.7 - 16.0 g/dL [facility] Interpretation and review of laboratory results Abnormal [facility] MCH (RBC) [Entitic mass] 22.5 pg Low 26.0 - 34.0 pg [facility] MCHC (RBC) [Mass/Vol] 31.5 % Low 32.0 - 36.0 % [facility] MCV (RBC) [Entitic vol] 71.5 fL Low 80.0 - 98.0 fL [facility] Platelet mean volume (Bld) [Entitic vol] 8.9 fL 7.4 - 12.4 fL [facility] Platelets (Bld) [#/Vol] 58 10*3/uL Low 140 - 440 10*3/uL [facility] Comment on above: I-Thrombocytopenia RBC (Bld) [#/Vol] 3.50 10*6/uL Low 3.8 - 5.20 10*6/uL [facility] WBC (Bld) [#/Vol] 5.1 10*3/uL 3.6 - 10.7 10*3/uL [facility] COMPREHENSIVE METABOLIC PANE [place] 09-12-2023 Albumin [Mass/Vol] 2.9 g/dL Low 3.5-5.0 [facility] Comment on above: Performed By: #### L AB17, [id number] ####Shredding Specialist: HALLEY HERNANDEZ ([phone])[facility] ([facility])[address] [place] [address] ALP [Catalytic activity/Vol] 112 U/L Normal 38-126 [facility] Comment on above: Performed By: #### L AB17, [id number] ####Shredding Specialist: HALLEY HERNANDEZ ([phone])[facility] [place] [address] ALT [Catalytic activity/Vol] 54 U/L High 0-34 [facility] Comment on above: Performed By: #### L AB17, [id number] ####Shredding Specialist: HALLEY HERNANDEZ ([phone])[facility] ([facility])[address] [place] [address] Anion gap [Moles/Vol] 6 mmol/L Normal 3-13 [facility] Comment on above: Performed By: #### L AB17, [id number] ####Shredding Specialist: HALLEY HERNANDEZ ([phone])[facility])[address] [place] [address] AST [Catalytic activity/Vol] 106 U/L High 15-46 [facility] Comment on above: Performed By: #### L AB17, [id number] ####Shredding Specialist: HALLEY HERNANDEZ ([phone])[facility])[address] [place] [address] Bilirubin [Mass/Vol] 1.9 mg/dL High 0.2-1.3 [facility] Comment on above: Performed By: #### L AB17, [id number] ####Shredding Specialist: HALLEY HERNANDEZ ([phone])[facility] ([facility])[address] [place] [address] Calcium [Mass/Vol] 8.7 mg/dL Normal 8.4-10.4 [facility] Comment on above: Performed By: #### L AB17, [id number] ####Shredding Specialist: HALLEY HERNANDEZ ([phone])[facility] ([facility])[address] [place] [address] [place] Chloride [Moles/Vol] 111 mmol/L High 98-107 [facility] Comment on above: Performed By: #### L AB17, [id number] ####Shredding Specialist: HALLEY HERNANDEZ ([phone])[facility])[address] [place] [address] [place] CO2 [Moles/Vol] 19 mmol/L Low 22-30 [facility] Comment on above: Performed By: #### L AB17, [id number] ####Shredding Specialist: HALLEY HERNANDEZ ([phone])[facility])[address] [place] [address] Creatinine [Mass/Vol] 0.64 mg/dL Normal 0.52-1.04 [facility] Comment on above: Performed By: #### L AB17, [id number] ####Shredding Specialist: HALLEY HERNANDEZ ([phone])[facility] ([facility])[address] [place] [address] GLOMERULAR FILTRATION RATE ML/MIN/1.73 SQ M.PREDICTED >90.0 Normal >60.0 [facility] Comment on above: Result Comment: Calc ulation based on the Chronic Kidney Disease Epidemiology Collaboration (CKD-EPI) equation refit without adjustment for race Performed By: #### L AB17, [id number] ####Shredding Specialist: HALLEY HERNANDEZ ([phone])[facility] ([facility])[address] [place] [address] Glucose [Mass/Vol] 110 mg/dL High 70-100 [facility] Comment on above: Performed By: #### L AB17, [id number] ####Shredding Specialist: HALLEY HERNANDEZ ([phone])[facility] ([facility])[address] [place] [address] [place] Potassium [Moles/Vol] 3.9 mmol/L Normal 3.5-5.1 [facility] Comment on above: Performed By: #### L AB17, [id number] ####Shredding Specialist: HALLEY HERNANDEZ ([phone])[facility] ([facility])[address] [place] [address] Protein [Mass/Vol] 6.1 g/dL Low 6.3-8.2 [facility] Comment on above: Performed By: #### L AB17, [id number] ####Shredding Specialist: HALLEY HERNANDEZ ([phone])[facility])[address] [place] [address] [place] Sodium [Moles/Vol] 136 mmol/L Normal 135-145 [facility] Comment on above: Performed By: #### L AB17, [id number] ####Shredding Specialist: HALLEY HERNANDEZ ([phone])[facility])[address] [place] [address] Urea nitrogen [Mass/Vol] 3 mg/dL Low 7-17 [facility] Comment on above: Performed By: #### L AB17, [id number] ####Shredding Specialist: HALLEY HERNANDEZ ([phone])[facility] ([facility])[address] [place] [address] Comprehensive metabolic 1998 panelon 09-12-2023 Albumin [Mass/Vol] 2.9 g/dL Low 3.5 - 5.0 g/dL [facility] ALP [Catalytic activity/Vol] 112 U/L 38 - 126 U/L [facility] ALT [Catalytic activity/Vol] 54 U/L High 0 - 34 U/L [facility] Anion gap [Moles/Vol] 6 mmol/L 3 - 13 mmol/L [facility] AST [Catalytic activity/Vol] 106 U/L High 15 - 46 U/L [facility] Bilirubin [Mass/Vol] 1.9 mg/dL High 0.2 - 1 .3 mg/dL [facility] Calcium [Mass/Vol] 8.7 mg/dL 8.4 - 10. 4 mg/dL [facility] Chloride [Moles/Vol] 111 mmol/L High 98 - 10 7 mmol/L [facility] CO2 [Moles/Vol] 19 mmol/L Low 22 - 30 mmol/L [facility] Creatinine [Mass/Vol] 0.64 mg/dL 0.52 - 1.04 mg/dL [facility] GFR/1.73 sq M.predicted MDRD (S/P/Bld) [Vol rate/Area] - PINF [facility] Comment on above: Calculation based on the Chronic Kidney Disease Epidemiology Collaboration (CKD-EPI) equation refit without adjustment for race Glucose [Mass/Vol] 110 mg/dL High 70 - 100 mg/dL [facility] Interpretation and review of laboratory results Abnormal [facility] Potassium [Moles/Vol] 3.9 mmol/L 3.5 - 5.1 mmol/L [facility] Protein [Mass/Vol] 6.1 g/dL Low 6.3 - 8.2 g/dL [facility] Sodium [Moles/Vol] 136 mmol/L 135 - 145 mmol/L [facility] Urea nitrogen [Mass/Vol] 3 mg/dL Low 7 - 17 mg/dL [facility] Laboratory - Chemistry and C hemistry - challengeon 09-12-2023 Magnesium [Mass/Vol] 1.6 mg/dL 1.6 - 2 .3 mg/dL [facility] Ammonia (P) [Moles/Vol] 42 umol/L High 9 - 30 umol/L [facility] MAGNESIUMon 09-12-2023 Magnesium [Mass/Vol] 1.6 mg/dL Normal 1.6-2.3 [facility] Comment on above: Performed By: #### L AB17, [id number] ####Shredding Specialist: HALLEY HERNANDEZ ([phone])[facility] ([address] Magnesium [Mass/Vol]on 09-12 Interpretation and review of laboratory results Normal [facility] No Panel Informationon 09-12 [facility] Interpretation and review of laboratory results Abnormal [facility] Progress Noteon 09-12-2023 Progress Note -------- [...] FACS Division of Trauma Department of Surgery [facility] ~~~~~~~~~~~~~~~~~~~~~~~~~~~~ ~~~~~~~~~~~~~~~~~~~~~~~~~~~~ ~~~~~ This note may have been dictated using [employer]ude Medical Practice Edition 2.6 and/or [employer] Voice Recognition Feature. The document was proofread; however, unrecognized voice recognition engraver wood errors may be present. Department of General [...] Range Status (more content not included)... Normal [facility] Progress Note [facility] ADMISSION MEDICATION RECONCILIATION Date: 09/12/23 Room:[facility] Patient Name: Carolina Hightower Allergies: [...] on last fill dates from patient's [facility]. Home medications to restart if there [...] PM 09/12/2023 4:18 PM Kaylin Camarillo, PharmD [facility] Progress Note Nutrition Assessment Type and Reason [...] muscle mass loss Fluid Accumulation: Mild Ascites Dust Box Tender Strength: Not Performed Nutrition Assessment: 47yo F [...] On: Kcal/kg Weight Used for Energy Requirements: [place] Weight for Energy Calculation (kg): 50 kg Total Energy Requirements (kcals/day): 27-32 kcal/kg = 1708-7047 kcal/day Weight Used for Protein Requirements: [place] Weight in Kg Used for Protein Requirements: [...] 05/26/22 198#) % Weight Change (Calculated): 2.8 [place] Body Weight (lbs) (Calculated): 110 lbs [place] Body Weight (Kg) (Calculated): 50 kg % [place] Body Weight (Calculated): 186.9 % BMI (kg/m2) [...] to determ (more content not included)... Normal [facility] AMMONIAon 09-11-2023 Ammonia (P) [Moles/Vol] 65 umol/L High 9-30 [facility] Comment on above: Performed By: #### L [id number] ####Shredding Specialist: HALLEY HERNANDEZ ([phone])[facility] ([facility])[address] [place] [address] BILIRUBIN, DIRECTon 09-11-20 Bilirubin.indirect [Mass/Vol] 0.0 mg/dL Normal 0.0-0.3 [facility] Comment on above: Performed By: #### L AB52, LAB17 ####Shredding Specialist: HALLEY HERNANDEZ ([phone])[facility] ([facility])[address] [place] [address] Bilirubin.indirect [Mass/Vol ]on 09-11-2023 Bilirubin.conjugated [Mass/Vol] 0.0 mg/dL 0.0 - 0.3 mg/dL [facility] Interpretation and review of laboratory results Normal [facility] CARECOORDon 09-11-2023 [facility] to complet e Initial assessment over the phone. Patient currently unavailable/off unit. Will try again as time allows. TCC will follow. Normal [facility] CBC W Auto Differential pane l (Bld)on 09-11-2023 Basophils (Bld) [#/Vol] 0.0 10*3/uL 0.0 - 0.2 10*3/uL [facility] Basophils/100 WBC (Bld) 0.5 % 0.0 - 2.0 % [facility] Eosinophils (Bld) [#/Vol] 0.3 10*3/uL 0.0 - 0.5 10*3/uL [facility] Eosinophils/100 WBC (Bld) 4.4 % 1.0 - 6.0 % [facility] Erythrocyte distribution width (RBC) [Ratio] 21.6 % High 11.5 - 14.5 % [facility] Comment on above: I-Anisocytosis Hematocrit (Bld) [Volume fraction] 27.4 % Low 35.0 - 47.0 % [facility] Hemoglobin (Bld) [Mass/Vol] 8.6 g/dL Low 11.7 - 16.0 g/dL [facility] Interpretation and review of laboratory results Abnormal [facility] Lymphocytes (Bld) [#/Vol] 1.6 10*3/uL 1.0 - 4.3 10*3/uL [facility] Lymphocytes/100 WBC (Bld) 20.6 % 20.0 - 40.0 % [facility] MCH (RBC) [Entitic mass] 22.5 pg Low 26.0 - 34.0 pg [facility] MCHC (RBC) [Mass/Vol] 31.2 % Low 32.0 - 36.0 % [facility] MCV (RBC) [Entitic vol] 72.2 fL Low 80.0 - 98.0 fL [facility] Monocytes (Bld) [#/Vol] 0.9 10*3/uL High 0.0 - 0.8 10*3/uL [facility] Monocytes/100 WBC (Bld) 10.9 % High 2.0 - 10.0 % [facility] Neutrophils (Bld) [#/Vol] 5.0 10*3/uL 1.8 - 7.0 10*3/uL [facility] Neutrophils/100 WBC (Bld) 63.6 % 40.0 - 80.0 % [facility] Nucleated RBC/100 WBC (Bld) [Ratio] 0.0 % [facility] Platelet mean volume (Bld) [Entitic vol] 8.5 fL 7.4 - 12.4 fL [facility] Platelets (Bld) [#/Vol] 61 10*3/uL Low 140 - 440 10*3/uL [facility] Comment on above: I-Thrombocytopenia RBC (Bld) [#/Vol] 3.80 10*6/uL 3.8 - 5.20 10*6/uL [facility] WBC (Bld) [#/Vol] 7.9 10*3/uL 3.6 - 10.7 10*3/uL [facility] CBC WITH AUTO DIFFERENTIALon 09-11-2023 Basophils (Bld) [#/Vol] 0.0 10*3/uL Normal 0.0-0.2 [facility] Comment on above: Performed By: #### L [id number] ####Shredding Specialist: HALLEY HERNANDEZ ([phone])[facility])[address] [place] [address] Basophils/100 WBC (Bld) 0.5 % Normal 0.0-2.0 [facility] Comment on above: Performed By: #### L [id number] ####Shredding Specialist: HALLEY HERNANDEZ ([phone])[facility])[address] [place] [address] Eosinophils (Bld) [#/Vol] 0.3 10*3/uL Normal 0.0-0.5 [facility] Comment on above: Performed By: #### L [id number] ####Shredding Specialist: HALLEY HERNANDEZ ([phone])[facility])[address] [place] [address] Eosinophils/100 WBC (Bld) 4.4 % Normal 1.0-6.0 [facility] Comment on above: Performed By: #### L [id number] ####Shredding Specialist: HALLEY HERNANDEZ ([phone])[address] Erythrocyte distribution width (RBC) [Ratio] 21.6 % High 11.5-14.5 [facility] Comment on above: Result Comment: I-An isocytosis Performed By: #### L [id number] ####Shredding Specialist: HALLEY HERNANDEZ ([phone])[facility])[address] [place] [address] ERYTHROCYTE MEAN CORPUSCULAR HEMOGLOBIN CONCENTRATION (G/DL) BY AUTOMATED 31.2 % Low 32.0-36.0 [facility] Comment on above: Performed By: #### L [id number] ####Shredding Specialist: HALLEY HERNANDEZ ([phone])[facility])[address] [place] [address] Hematocrit (Bld) [Volume fraction] 27.4 % Low 35.0-47.0 [facility] Comment on above: Performed By: #### L [id number] ####Shredding Specialist: HALLEY HERNANDEZ ([phone])[address] Hemoglobin (Bld) [Mass/Vol] 8.6 g/dL Low 11.7-16.0 [facility] Comment on above: Performed By: #### L [id number] ####Shredding Specialist: HALLEY HERNANDEZ ([phone])[facility])[address] [place] [address] Lymphocytes (Bld) [#/Vol] 1.6 10*3/uL Normal 1.0-4.3 [facility] Comment on above: Performed By: #### L [id number] ####Shredding Specialist: HALLEY HERNANDEZ ([phone])[address] Lymphocytes/100 WBC (Bld) 20.6 % Normal 20.0-40.0 [facility] Comment on above: Performed By: #### L [id number] ####Shredding Specialist: HALLEY HERNANDEZ ([phone])[address] MCH (RBC) [Entitic mass] 22.5 pg Low 26.0-34.0 [facility] Comment on above: Performed By: #### L [id number] ####Shredding Specialist: HALLEY HERNANDEZ ([phone])[address] MCV (RBC) [Entitic vol] 72.2 fL Low 80.0-98.0 [facility] Comment on above: Performed By: #### L [id number] ####Shredding Specialist: HALLEY HERNANDEZ ([phone])[address] Monocytes (Bld) [#/Vol] 0.9 10*3/uL High 0.0-0.8 [facility] Comment on above: Performed By: #### L [id number] ####Shredding Specialist: HALLEY HERNANDEZ ([phone])[facility])[address] [place] [address] Monocytes/100 WBC (Bld) 10.9 % High 2.0-10.0 [facility] Comment on above: Performed By: #### L [id number] ####Shredding Specialist: HALLEY HERNANDEZ ([phone])[facility])[address] [place] [address] Neutrophils (Bld) [#/Vol] 5.0 10*3/uL Normal 1.8-7.0 [facility] Comment on above: Performed By: #### L [id number] ####Shredding Specialist: HALLEY HERNANDEZ ([phone])[facility] ([facility])[address] [place] [address] Neutrophils/100 WBC (Bld) 63.6 % Normal 40.0-80.0 [facility] Comment on above: Performed By: #### L [id number] ####Shredding Specialist: HALLEY HERNANDEZ ([phone])[facility])[address] [place] [address] NRBC (PER 100 WBCS) BY AUTOMATED COUNT 0.0 /100 WBCs Normal 0.0-2.0 [facility] Comment on above: Performed By: #### L [id number] ####Shredding Specialist: HALLEY HERNANDEZ ([phone])[facility])[address] [place] [address] Platelet mean volume (Bld) [Entitic vol] 8.5 fL Normal 7.4-12.4 [facility] Comment on above: Performed By: #### L [id number] ####Shredding Specialist: HALLEY HERNANDEZ ([phone])[facility])[address] [place] [address] Platelets (Bld) [#/Vol] 61 10*3/uL Low 140-440 [facility] Comment on above: Result Comment: I-Th rombocytopenia Performed By: #### L [id number] ####Shredding Specialist: HALLEY HERNANDEZ ([phone])[facility])[address] [place] [address] RBC (Bld) [#/Vol] 3.80 10*6/uL Normal 3.8-5.20 [facility] Comment on above: Performed By: #### L [id number] ####Shredding Specialist: HALLEY HERNANDEZ ([phone])[facility])[address] [place] [address] WBC (Bld) [#/Vol] 7.9 10*3/uL Normal 3.6-10.7 [facility] Comment on above: Performed By: #### L [id number] ####Shredding Specialist: HALLEY HERNANDEZ ([phone])[facility])[address] [place] [address] COMPREHENSIVE METABOLIC PANE [place] 09-11-2023 Albumin [Mass/Vol] 3.3 g/dL Low 3.5-5.0 [facility] Comment on above: Performed By: #### Mustapha LITTLE, LAB17 ####Shredding Specialist: HALLEY HERNANDEZ ([phone])[facility] ([facility])[address] [place] [address] ALP [Catalytic activity/Vol] 107 U/L Normal 38-126 [facility] Comment on above: Performed By: #### Mustapha LITTLE, LAB17 ####Shredding Specialist: HALLEY HERNANDEZ ([phone])[facility])[address] [place] [address] ALT [Catalytic activity/Vol] 52 U/L High 0-34 [facility] Comment on above: Performed By: #### L SIDNEY, LAB17 ####Shredding Specialist: HALLEY HERNANDEZ ([phone])[facility])[address] [place] [address] Anion gap [Moles/Vol] 9 mmol/L Normal 3-13 [facility] Comment on above: Performed By: #### L ABAnge, LAB17 ####Shredding Specialist: HALLEY HERNANDEZ ([phone])[facility])[address] [place] [address] [place] AST [Catalytic activity/Vol] 98 U/L High 15-46 [facility] Comment on above: Performed By: #### Mustapha LITTLE, LAB17 ####Shredding Specialist: HALLEY HERNANDEZ ([phone])[facility] ([facility])[address] [place] [address] [place] Bilirubin [Mass/Vol] 2.3 mg/dL High 0.2-1.3 [facility] Comment on above: Performed By: #### Mustapha LITTLE, LAB17 ####Shredding Specialist: HALLEY HERNANDEZ ([phone])[facility] ([facility])[address] [place] [address] Calcium [Mass/Vol] 8.5 mg/dL Normal 8.4-10.4 [facility] Comment on above: Performed By: #### Mustapha LITTLE, LAB17 ####Shredding Specialist: HALLEY HERNANDEZ ([phone])[facility] ([facility])[address] [place] [address] [place] Chloride [Moles/Vol] 111 mmol/L High 98-107 [facility] Comment on above: Performed By: #### Mustapha LITTLE, LAB17 ####Shredding Specialist: HALLEY HERNANDEZ ([phone])[facility] ([facility])[address] [place] [address] [place] CO2 [Moles/Vol] 17 mmol/L Low 22-30 [facility] Comment on above: Performed By: #### Mustapha LITTLE, LAB17 ####Shredding Specialist: HALLEY HERNANDEZ ([phone])[facility] ([facility])[address] [place] [address] [place] Creatinine [Mass/Vol] 0.73 mg/dL Normal 0.52-1.04 [facility] Comment on above: Performed By: #### L ABAnge, LAB17 ####Shredding Specialist: HALLEY HERNANDEZ ([phone])[facility] ([facility])[address] [place] [address] [place] GLOMERULAR FILTRATION RATE ML/MIN/1.73 SQ M.PREDICTED >90.0 Normal >60.0 [facility] Comment on above: Result Comment: Calc ulation based on the Chronic Kidney Disease Epidemiology Collaboration (CKD-EPI) equation refit without adjustment for race Performed By: #### Mustapha LITTLE, LAB17 ####Shredding Specialist: HALLEY HERNANDEZ ([phone])[facility])[address] [place] [address] Glucose [Mass/Vol] 76 mg/dL Normal 70-100 [facility] Comment on above: Performed By: #### Mustapha LITTLE, LAB17 ####Shredding Specialist: HALLEY HERNANDEZ ([phone])[facility])[address] [place] [address] Potassium [Moles/Vol] 3.4 mmol/L Low 3.5-5.1 [facility] Comment on above: Performed By: #### Mustapha LITTLE, LAB17 ####Shredding Specialist: HALLEY HERNANDEZ ([phone])[facility])[address] [place] [address] Protein [Mass/Vol] 6.8 g/dL Normal 6.3-8.2 [facility] Comment on above: Performed By: #### Mustapha LITTLE, LAB17 ####Shredding Specialist: HALLEY HERNANDEZ ([phone])[facility])[address] [place] [address] Sodium [Moles/Vol] 137 mmol/L Normal 135-145 [facility] Comment on above: Performed By: #### Mustapha LITTLE, LAB17 ####Shredding Specialist: HALLEY HERNANDEZ ([phone])[facility])[address] [place] [address] [place] Urea nitrogen [Mass/Vol] 8 mg/dL Normal 7-17 [facility] Comment on above: Performed By: #### Mustapha LITTLE, LAB17 ####Shredding Specialist: HALLEY HERNANDEZ ([phone])[facility])[address] [place] [address] Comprehensive metabolic 1998 panelon 09-11-2023 Albumin [Mass/Vol] 3.3 g/dL Low 3.5 - 5.0 g/dL [facility] ALP [Catalytic activity/Vol] 107 U/L 38 - 126 U/L [facility] ALT [Catalytic activity/Vol] 52 U/L High 0 - 34 U/L [facility] Anion gap [Moles/Vol] 9 mmol/L 3 - 13 mmol/L [facility] AST [Catalytic activity/Vol] 98 U/L High 15 - 46 U/L [facility] Bilirubin [Mass/Vol] 2.3 mg/dL High 0.2 - 1 .3 mg/dL [facility] Calcium [Mass/Vol] 8.5 mg/dL 8.4 - 10. 4 mg/dL [facility] Chloride [Moles/Vol] 111 mmol/L High 98 - 10 7 mmol/L [facility] CO2 [Moles/Vol] 17 mmol/L Low 22 - 30 mmol/L [facility] Creatinine [Mass/Vol] 0.73 mg/dL 0.52 - 1.04 mg/dL [facility] GFR/1.73 sq M.predicted MDRD (S/P/Bld) [Vol rate/Area] - PINF [facility] Comment on above: Calculation based on the Chronic Kidney Disease Epidemiology Collaboration (CKD-EPI) equation refit without adjustment for race Glucose [Mass/Vol] 76 mg/dL 70 - 100 mg/dL [facility] Interpretation and review of laboratory results Abnormal [facility] Potassium [Moles/Vol] 3.4 mmol/L Low 3.5 - 5.1 mmol/L [facility] Protein [Mass/Vol] 6.8 g/dL 6.3 - 8.2 g/dL [facility] Sodium [Moles/Vol] 137 mmol/L 135 - 145 mmol/L [facility] Urea nitrogen [Mass/Vol] 8 mg/dL 7 - 17 mg/dL [facility] Laboratory - Chemistry and C hemistry - challengeon 09-11-2023 Ammonia (P) [Moles/Vol] 65 umol/L High 9 - 30 umol/L [facility] Laboratory - Drug toxicology Ordered By: Lorraine Hernandez on 09-11-2023 Amphetamines Screen method >1000 ng/mL Ql (U) Negative [facility] Barbiturates Screen method >200 ng/mL Ql (U) Negative [facility] Benzodiazepines Ql (U) Negative [facility] Methadone Screen Ql (U) Negative [facility] Opiates Screen Ql (U) Negative [facility] oxyCODONE Ql (U) Negative [facility] Phencyclidine Ql (U) Negative [facility] No Panel InformationOrdered By: Lorraine Hernandez on 09-11-2023 COCAINE METAB. SCREEN Negative [facility] The expected value f or all [...] is needed, request confirmation under separate order. [facility] No Panel Informationon 09-11 [facility] Interpretation and review of laboratory results Abnormal [facility] Nursing Noteon 09-11-2023 Nursing Note Pt was found wanderi ng the hospital by security, confused. Pt brought back by security and she said she was going outside to smoke. She was very upset that she could not have a smoke. Pt threatened to punch someone in the face. Pt is confused. Normal [facility] Progress Noteon 09-11-2023 Progress Note Nutrition rescreen completed. Patient is NPO/Clear liquid >3 days with cirrhosis. Refer to Dietitian. DUTCH Bowers Normal [facility] AMMONIAon 09-10-2023 Ammonia (P) [Moles/Vol] 78 umol/L High 9-30 [facility] Comment on above: Performed By: #### L [id number] ####Shredding Specialist: HALLEY HERNANDEZ ([phone])[facility] ([facility])[address] [place] [address] CBC (HEMOGRAM)on 09-10-2023 Erythrocyte distribution width (RBC) [Ratio] 21.4 % High 11.5-14.5 [facility] Comment on above: Result Comment: I-An isocytosis Performed By: #### L [id number] #### Shredding Specialist: JAVID VASQUEZRITA ([phone]) [facility] [address] ERYTHROCYTE MEAN CORPUSCULAR HEMOGLOBIN CONCENTRATION (G/DL) BY AUTOMATED 31.7 % Low 32.0-36.0 [facility] Comment on above: Performed By: #### L [id number] #### Shredding Specialist: JAVID LUTHER ([phone]) [facility] ([facility]) [address] Hematocrit (Bld) [Volume fraction] 28.8 % Low 35.0-47.0 [facility] Comment on above: Performed By: #### L [id number] #### Shredding Specialist: JAVID VASQUEZRITA ([phone]) [facility] [address] Hemoglobin (Bld) [Mass/Vol] 9.1 g/dL Low 11.7-16.0 [facility] Comment on above: Performed By: #### L [id number] #### Shredding Specialist: JAVID LUTHER ([phone]) [facility] [address] MCH (RBC) [Entitic mass] 22.5 pg Low 26.0-34.0 [facility] Comment on above: Performed By: #### L [id number] #### Shredding Specialist: JAVID LUTHER ([phone]) [facility] ([facility]) [address] MCV (RBC) [Entitic vol] 71.2 fL Low 80.0-98.0 [facility] Comment on above: Performed By: #### L [id number] #### Shredding Specialist: JAVID VASQUEZRITA ([phone]) [facility] [address] Platelet mean volume (Bld) [Entitic vol] 8.9 fL Normal 7.4-12.4 [facility] Comment on above: Performed By: #### L [id number] #### Shredding Specialist: JAVID LUTHER ([phone]) [facility] ([facility]) [address] Platelets (Bld) [#/Vol] 79 10*3/uL Low 140-440 [facility] Comment on above: Performed By: #### L [id number] #### Shredding Specialist: JAVID LUTHER ([phone]) [facility] ([facility]) [address] RBC (Bld) [#/Vol] 4.05 10*6/uL Normal 3.8-5.20 [facility] Comment on above: Performed By: #### L [id number] #### Shredding Specialist: JAVID LUTHER ([phone]) [facility] ([facility]) [address] WBC (Bld) [#/Vol] 8.2 10*3/uL Normal 3.6-10.7 [facility] Comment on above: Performed By: #### L [id number] #### Shredding Specialist: JAVID LUTHER ([phone]) [facility] [address] [place] [address] CBC panel Auto (Bld)Ordered By: Oscar Wilkins on 09-10-2023 Erythrocyte distribution width (RBC) [Ratio] 21.4 % High 11.5 - 14.5 % [facility] Comment on above: I-Anisocytosis Hematocrit (Bld) [Volume fraction] 28.8 % Low 35.0 - 47.0 % [facility] Hemoglobin (Bld) [Mass/Vol] 9.1 g/dL Low 11.7 - 16.0 g/dL [facility] Interpretation and review of laboratory results Abnormal [facility] MCH (RBC) [Entitic mass] 22.5 pg Low 26.0 - 34.0 pg [facility] MCHC (RBC) [Mass/Vol] 31.7 % Low 32.0 - 36.0 % [facility] MCV (RBC) [Entitic vol] 71.2 fL Low 80.0 - 98.0 fL [facility] Platelet mean volume (Bld) [Entitic vol] 8.9 fL 7.4 - 12.4 fL [facility] Platelets (Bld) [#/Vol] 79 10*3/uL Low 140 - 440 10*3/uL [facility] RBC (Bld) [#/Vol] 4.05 10*6/uL 3.8 - 5.20 10*6/uL [facility] WBC (Bld) [#/Vol] 8.2 10*3/uL 3.6 - 10.7 10*3/uL [facility] COMPREHENSIVE METABOLIC PANE [place] 09-10-2023 Albumin [Mass/Vol] 2.8 g/dL Low 3.5-5.0 [facility] Comment on above: Performed By: #### Mustapha KAISER, [id number], LAB17 ####Shredding Specialist: HALLEY HERNANDEZ ([phone])[facility])[address] [place] [address] ALP [Catalytic activity/Vol] 146 U/L High 38-126 [facility] Comment on above: Performed By: #### Mustapha KAISER, [id number], LAB17 ####Shredding Specialist: HALLEY HERNANDEZ ([phone])[facility])[address] [place] [address] ALT [Catalytic activity/Vol] 54 U/L High 0-34 [facility] Comment on above: Performed By: #### Mustapha KAISER, [id number], LAB17 ####Shredding Specialist: HALLEY HERNANDEZ ([phone])[facility])[address] [place] [address] Anion gap [Moles/Vol] 4 mmol/L Normal 3-13 [facility] Comment on above: Performed By: #### Mustapha AB103, [id number], LAB17 ####Shredding Specialist: HALLEY HERNANDEZ ([phone])[facility])[address] [place] [address] AST [Catalytic activity/Vol] 103 U/L High 15-46 [facility] Comment on above: Performed By: #### Mustapha ABSophia, [id number], LAB17 ####Shredding Specialist: HALLEY HERNANDEZ ([phone])[facility])[address] [place] [address] Bilirubin [Mass/Vol] 2.5 mg/dL High 0.2-1.3 [facility] Comment on above: Performed By: #### Mustapha KAISER, [id number], LAB17 ####Shredding Specialist: HALLEY HERNANDEZ ([phone])[facility])[address] [place] [address] Calcium [Mass/Vol] 8.6 mg/dL Normal 8.4-10.4 [facility] Comment on above: Performed By: #### Mustapha KAISER, [id number], LAB17 ####Shredding Specialist: HALLEY HERNANDEZ ([phone])[facility])[address] [place] [address] Chloride [Moles/Vol] 113 mmol/L High 98-107 [facility] Comment on above: Performed By: #### Mustapha [facility], [id number], [id number] ####Shredding Specialist: HALLEY HERNANDEZ ([phone])[facility])[address] [place] [address] CO2 [Moles/Vol] 21 mmol/L Low 22-30 [facility] Comment on above: Performed By: #### Mustapha [facility], [id number], [id number] ####Shredding Specialist: HALLEY HERNANDEZ ([phone])[facility])[address] [place] [address] Creatinine [Mass/Vol] 0.81 mg/dL Normal 0.52-1.04 [facility] Comment on above: Performed By: #### Mustapha ABSophia, [id number], [id number] ####Shredding Specialist: HALLEY HERNANDEZ ([phone])[facility])[address] [place] [address] GLOMERULAR FILTRATION RATE ML/MIN/1.73 SQ M.PREDICTED 89.1 mL/min/1.73m*2 Normal >60.0 [facility] Comment on above: Result Comment: Calc ulation based on the Chronic Kidney Disease Epidemiology Collaboration (CKD-EPI) equation refit without adjustment for race Performed By: #### Mustapha [facility], [id number], LAB17 ####Shredding Specialist: HALLEY HERNANDEZ ([phone])[facility])[address] [place] [address] Glucose [Mass/Vol] 90 mg/dL Normal 70-100 [facility] Comment on above: Performed By: #### Mustapha [facility], [id number], LAB17 ####Shredding Specialist: HALLEY HERNANDEZ ([phone])[facility])[address] [place] [address] Potassium [Moles/Vol] 4.0 mmol/L Normal 3.5-5.1 [facility] Comment on above: Performed By: #### Mustapha [facility] [id number], LAB17 ####Shredding Specialist: HALLEY HERNANDEZ ([phone])[facility])[address] [place] [address] Protein [Mass/Vol] 6.4 g/dL Normal 6.3-8.2 [facility] Comment on above: Performed By: #### Mustapha [facility] [id number], LAB17 ####Shredding Specialist: HALLEY HERNANDEZ ([phone])[facility])[address] [place] [address] Sodium [Moles/Vol] 138 mmol/L Normal 135-145 [facility] Comment on above: Performed By: #### Mustapha [facility], [id number], LAB17 ####Shredding Specialist: HALLEY HERNANDEZ ([phone])[facility])[address] [place] [address] [place] Urea nitrogen [Mass/Vol] 7 mg/dL Normal 7-17 [facility] Comment on above: Performed By: #### Mustapha [facility], [id number], LAB17 ####Shredding Specialist: HALLEY HERNANDEZ ([phone])[facility])[address] [place] [address] Comprehensive metabolic 1998 panelon 09-10-2023 Albumin [Mass/Vol] 2.8 g/dL Low 3.5 - 5.0 g/dL [facility] ALP [Catalytic activity/Vol] 146 U/L High 38 - 126 U/L [facility] ALT [Catalytic activity/Vol] 54 U/L High 0 - 34 U/L [facility] Anion gap [Moles/Vol] 4 mmol/L 3 - 13 mmol/L [facility] AST [Catalytic activity/Vol] 103 U/L High 15 - 46 U/L [facility] Bilirubin [Mass/Vol] 2.5 mg/dL High 0.2 - 1 .3 mg/dL [facility] Calcium [Mass/Vol] 8.6 mg/dL 8.4 - 10. 4 mg/dL [facility] Chloride [Moles/Vol] 113 mmol/L High 98 - 10 7 mmol/L [facility] CO2 [Moles/Vol] 21 mmol/L Low 22 - 30 mmol/L [facility] Creatinine [Mass/Vol] 0.81 mg/dL 0.52 - 1.04 mg/dL [facility] GFR/1.73 sq M.predicted MDRD (S/P/Bld) [Vol rate/Area] 89.1 mL/min/{1.73_m2} - PINF [facility] Comment on above: Calculation based on the Chronic Kidney Disease Epidemiology Collaboration (CKD-EPI) equation refit without adjustment for race Glucose [Mass/Vol] 90 mg/dL 70 - 100 mg/dL [facility] Interpretation and review of laboratory results Abnormal [facility] Potassium [Moles/Vol] 4.0 mmol/L 3.5 - 5.1 mmol/L [facility] Protein [Mass/Vol] 6.4 g/dL 6.3 - 8.2 g/dL [facility] Sodium [Moles/Vol] 138 mmol/L 135 - 145 mmol/L [facility] Urea nitrogen [Mass/Vol] 7 mg/dL 7 - 17 mg/dL [facility] ED Nursing Noteon 09-10-2023 ED Nursing Note Report given to 7W a t this time. Transport en route. Laura Antony RN 09/10/23 8875 Normal [facility] ED Nursing Note They are here now to transport the patient to [facility] 09/10/23 4289 Normal [facility] ED Nursing Note [facility] ET A 0430 RN will call report in a few :) Afua aHas 09/10/23 0432 Normal [facility] Guidance for paracentesis of Peritoneumon 09-10-2023 Trace ascites, not a menable to ultrasound-guided paracentesis. Paracentesis not performed. Report Dictated on Electronically Signed By: Ananda Edwards MD Electronically Signed Date/Time: 09/10/2023 8:54 AM EST [facility] Patient Name: CAROLINA HIGHTOWER : 1975 [...] of fluid amenable to ultrasound guided paracentesis. [facility] Ananda Edwards MD - Patient Name: CAROLINA [...] Electronically Signed Date/Time: 09/10/2023 8:54 AM EST [facility] Radiology Study observation (narrative) [facility] Guidance for paracentesis of PeritoneumOrdered By: Ananda Edwards on 09-10-2023 [facility] Work Phone: IRON AND TIBCon 09-10-2023 IRON BINDING CAPACITY 376 ug/dL Normal 261-497 [facility] Comment on above: Performed By: #### L AB103, [id number], LAB17 ####Shredding Specialist: HALLEY HERNANDEZ ([phone])[facility])[address] [place] [address] IRON SATURATION 13 % Low 15-50 [facility] Comment on above: Performed By: #### L AB103, [id number], LAB17 ####Shredding Specialist: HALLEY HERNANDEZ ([phone])[facility])[address] [place] [address] IRON, TOTAL 48 ug/dL Normal 37-170 [facility] Comment on above: Performed By: #### L AB103, [id number], LAB17 ####Shredding Specialist: HALLEY HERNANDEZ ([phone])[facility] ([facility])[address] [place] [address] Iron and Iron binding capaci ty panelon 09-10-2023 Interpretation and review of laboratory results Abnormal [facility] Iron [Mass/Vol] 48 ug/dL 37 - 170 ug/dL [facility] Iron binding capacity [Mass/Vol] 376 ug/dL 261 - 497 ug/dL [facility] Iron saturation [Mass fraction] 13 % Low 15 - 50 % [facility] Laboratory - Chemistry and C hemistry - challengeon 09-10-2023 Magnesium [Mass/Vol] 1.7 mg/dL 1.6 - 2 .3 mg/dL [facility] Ammonia (P) [Moles/Vol] 78 umol/L High 9 - 30 umol/L [facility] Troponin I.cardiac [Mass/Vol] ng/mL NINF - 0.034 ng/mL [facility] Laboratory - Coagulationon 1 11-11-2022 aPTT Coag (PPP) [Time] 40.2 s High 20.0 - 30.5 s [facility] INR Coag (PPP) [Relative time] 1.7 {INR} High 0.9 - 1.1 [facility] Comment on above: Recommended Anticoag ulant [...] s High 9.0 - 1 2.0 s [facility] MAGNESIUMon 09-10-2023 Magnesium [Mass/Vol] 1.7 mg/dL Normal 1.6-2.3 [facility] Comment on above: Performed By: #### L AB103, [id number], LAB17 ####Shredding Specialist: HALLEY HERNANDEZ ([phone])[facility])[address] [place] [address] Magnesium [Mass/Vol]on 09-10 Interpretation and review of laboratory results Normal [facility] No Panel Informationon 09-10 Interpretation and review of laboratory results Abnormal [facility] Interpretation and review of laboratory results Abnormal [facility] PROTIME AND APTTon aPTT Coag (Bld) [Time] 40.2 s High 20.0-30.5 [facility] Comment on above: Performed By: #### L [id number] ####Shredding Specialist: HALLEY HERNANDEZ ([phone])[facility] ([employer])[address] [place] [address] INR Coag (PPP) [Relative time] 1.7 {INR} High 0.9-1.1 [facility] Comment on above: Result Comment: Giorgio [...] prevent Myocardial Infarction Performed By: #### L [id number] ####Shredding Specialist: HALLEY HERNANDEZ ([phone])[facility] ([facility])[address] [place] [address] PT Coag (PPP) [Time] 17.0 s High 9.0-12.0 [facility] Comment on above: Performed By: #### L [id number] ####Shredding Specialist: HALLEY HERNANDEZ ([phone])[facility] ([facility])[address] [place] [address] Progress Noteon 09-10-2023 Progress Note Patient seen, [...] We will continue to follow closely. Normal [facility] TROPONIN Ion 09-10-2023 Troponin I.cardiac [Mass/Vol] ng/mL Normal <0.034 [facility] Comment on above: Result Comment: KIKE Cohen COMMENTS: Patients with high levels of Biotin oral intake (ie >5 mg/day) may have falsely decreased Troponin levels. Performed By: #### L [id number] #### Shredding Specialist: JAVID LUTHER ([phone]) [facility] ([facility]) [address] [place] [address] Troponin I.cardiac [Mass/Vol] ng/mL Normal <0.034 [facility] Comment on above: Result Comment: KIKE Cohen COMMENTS: Patients with high levels of Biotin oral intake (ie >5 mg/day) may have falsely decreased Troponin levels. Performed By: #### L [id number] ####Shredding Specialist: JAVID LUTHER ([phone])[facility] ([facility])[address] [place] [address] Troponin I.cardiac [Mass/Vol ]on 09-10-2023 Interpretation and review of laboratory results Normal [facility] Patients with high l evels of Biotin oral intake (ie >5 mg/day) may have falsely decreased Troponin levels. [facility] US GUIDED ABDOMINAL PARACENT ESISon 09-10-2023 US GUIDED ABDOMINAL PARACENTESIS Patient Name: CAROLINA HIGHTOWER : 1975 [facility]#: [id number] Exam Date/Time: 09/10/2023 08:29 Procedure: US GUIDED [...] Signed Date/Time: 09/10/2023 8:54 AM EST Normal [facility] AMMONIAon 09-09-2023 Ammonia (P) [Moles/Vol] 106 umol/L High - [facility] Comment on above: Performed By: #### L [id number] ####Shredding Specialist: JAVID SALINAS ([phone])[facility] ([facility])[address] [place] [address] BASIC METABOLIC PANELon 08-26 Anion gap [Moles/Vol] 8 mmol/L Normal 3-13 [facility] Comment on above: Performed By: #### L AB15, [id number], LAB20, LAB99 ####Shredding Specialist: JAVID LUTHER ([phone])[facility] ([facility])[address] [place] [address] Calcium [Mass/Vol] 8.7 mg/dL Normal 8.4-10.4 [facility] Comment on above: Performed By: #### L AB15, [id number], LAB20, LAB99 ####Shredding Specialist: JAVID LUTHER ([phone])[facility] ([facility])[address] Chloride [Moles/Vol] 109 mmol/L High 98-107 [facility] Comment on above: Performed By: #### L AB15, [id number], LAB20, LAB99 ####Shredding Specialist: JAVID LUTHER ([phone])[facility] ([facility])[address] CO2 [Moles/Vol] 19 mmol/L Low 22-30 [facility] Comment on above: Performed By: #### L AB15, [id number], LAB20, LAB99 ####Shredding Specialist: JAVID LUTHER ([phone])[facility] ([facility])[address] [place] [address] Creatinine [Mass/Vol] 0.73 mg/dL Normal 0.52-1.04 [facility] Comment on above: Performed By: #### L AB15, [id number], LAB20, LAB99 ####Shredding Specialist: JAVID LUTHER ([phone])[facility] ([facility])[address] [place] [address] GLOMERULAR FILTRATION RATE ML/MIN/1.73 SQ M.PREDICTED >90.0 Normal >60.0 [facility] Comment on above: Result Comment: Calc ulation based on the Chronic Kidney Disease Epidemiology Collaboration (CKD-EPI) equation refit without adjustment for race ORDER COMMENTS: CHEMISTRY SPECIMEN SLIGHTLY HEMOLYZED; INTERPRET WITH CAUTION! Performed By: #### L AB15, [id number], LAB20, LAB99 ####Shredding Specialist: JAVID LUTHER ([phone])[facility] ([facility])[address] [place] [address] [place] Glucose [Mass/Vol] 139 mg/dL High 70-100 [facility] Comment on above: Performed By: #### L AB15, [id number], LAB20, LAB99 ####Shredding Specialist: JAVID LUTHER ([phone])[facility] ([facility])[address] Potassium [Moles/Vol] 4.3 mmol/L Normal 3.5-5.1 [facility] Comment on above: Performed By: #### L AB15, [id number], LAB20, LAB99 ####Shredding Specialist: JAVID LUTHER ([phone])[facility] ([facility])[address] Sodium [Moles/Vol] 136 mmol/L Normal 135-145 [facility] Comment on above: Performed By: #### L AB15, [id number], LAB20, LAB99 ####Shredding Specialist: JAVID LUTHER ([phone])[facility] ([facility])[address] [place] [address] Urea nitrogen [Mass/Vol] 7 mg/dL Normal 7-17 [facility] Comment on above: Performed By: #### L AB15, [id number], LAB20, LAB99 ####Shredding Specialist: JAVID LUTHER ([phone])[facility] ([facility])[address] [place] [address] Basic metabolic 1998 panelon 09-09-2023 Anion gap [Moles/Vol] 8 mmol/L 3 - 13 mmol/L [facility] Calcium [Mass/Vol] 8.7 mg/dL 8.4 - 10. 4 mg/dL [facility] Chloride [Moles/Vol] 109 mmol/L High 98 - 10 7 mmol/L [facility] CO2 [Moles/Vol] 19 mmol/L Low 22 - 30 mmol/L [facility] Creatinine [Mass/Vol] 0.73 mg/dL 0.52 - 1.04 mg/dL [facility] GFR/1.73 sq M.predicted MDRD (S/P/Bld) [Vol rate/Area] - PINF [facility] Comment on above: Calculation based on the Chronic Kidney Disease Epidemiology Collaboration (CKD-EPI) equation refit without adjustment for race Glucose [Mass/Vol] 139 mg/dL High 70 - 100 mg/dL [facility] Potassium [Moles/Vol] 4.3 mmol/L 3.5 - 5.1 mmol/L [facility] Sodium [Moles/Vol] 136 mmol/L 135 - 145 mmol/L [facility] Urea nitrogen [Mass/Vol] 7 mg/dL 7 - 17 mg/dL [facility] CBC W Auto Differential pane l (Bld)Ordered By: Saida York on 09-09-2023 Erythrocyte distribution width (RBC) [Ratio] 21.6 % High 11.5 - 14.5 % [facility] Hematocrit (Bld) [Volume fraction] 32.4 % Low 35.0 - 47.0 % [facility] Hemoglobin (Bld) [Mass/Vol] 10.4 g/dL Low 11.7 - 16.0 g/dL [facility] Interpretation and review of laboratory results Abnormal [facility] MCH (RBC) [Entitic mass] 22.8 pg Low 26.0 - 34.0 pg [facility] MCHC (RBC) [Mass/Vol] 32.0 % 32.0 - 36.0 % [facility] MCV (RBC) [Entitic vol] 71.1 fL Low 80.0 - 98.0 fL [facility] Nucleated RBC/100 WBC (Bld) [Ratio] 0.2 % [facility] Platelet mean volume (Bld) [Entitic vol] 9.2 fL 7.4 - 12.4 fL [facility] Platelets (Bld) [#/Vol] 95 10*3/uL Low 140 - 440 10*3/uL [facility] RBC (Bld) [#/Vol] 4.56 10*6/uL 3.8 - 5.20 10*6/uL [facility] WBC (Bld) [#/Vol] 9.4 10*3/uL 3.6 - 10.7 10*3/uL [facility] CBC WITH AUTO DIFFERENTIALon 09-09-2023 Erythrocyte distribution width (RBC) [Ratio] 21.6 % High 11.5-14.5 [facility] Comment on above: Performed By: #### L [id number], [id number] ####Shredding Specialist: JAVID LUTHER ([phone])[facility] ([facility])[address] [place] [address] ERYTHROCYTE MEAN CORPUSCULAR HEMOGLOBIN CONCENTRATION (G/DL) BY AUTOMATED 32.0 % Normal 32.0-36.0 [facility] Comment on above: Performed By: #### L [id number], [id number] ####Shredding Specialist: JAVID LUTHER ([phone])[facility] ([facility])[address] Hematocrit (Bld) [Volume fraction] 32.4 % Low 35.0-47.0 [facility] Comment on above: Performed By: #### L [id number], [id number] ####Shredding Specialist: JAVID LUTHER ([phone])[facility] [place] ([facility])[address] Hemoglobin (Bld) [Mass/Vol] 10.4 g/dL Low 11.7-16.0 [facility] Comment on above: Performed By: #### L [id number], [id number] ####Shredding Specialist: JAVID LUTHER ([phone])[facility] ([facility])[address] MCH (RBC) [Entitic mass] 22.8 pg Low 26.0-34.0 [facility] Comment on above: Performed By: #### L [id number], [id number] ####Shredding Specialist: JAVID LUTHER ([phone])[facility] ([facility])[address] MCV (RBC) [Entitic vol] 71.1 fL Low 80.0-98.0 [facility] Comment on above: Performed By: #### L [id number], [id number] ####Shredding Specialist: JAIVD LUTHER ([phone])[facility] ([facility])[address] NRBC (PER 100 WBCS) BY AUTOMATED COUNT 0.2 /100 WBCs Normal 0.0-2.0 [facility] Comment on above: Performed By: #### L [id number], [id number] ####Shredding Specialist: JAVID LUTHER ([phone])[facility]ITAL[facility] ([facility])[address] Platelet mean volume (Bld) [Entitic vol] 9.2 fL Normal 7.4-12.4 [facility] Comment on above: Performed By: #### L [id number], [id number] ####Shredding Specialist: JAVID LUTHER ([phone])[facility]ITALAmbreen [facility] ([facility])[address] Platelets (Bld) [#/Vol] 95 10*3/uL Low 140-440 [facility] Comment on above: Performed By: #### L [id number], [id number] ####Shredding Specialist: JAVID LUTHER ([phone])[facility]ITALAmbreen [facility] ([facility])[address] [place] [address] RBC (Bld) [#/Vol] 4.56 10*6/uL Normal 3.8-5.20 [facility] Comment on above: Performed By: #### L [id number], [id number] ####Shredding Specialist: JAVID LUTHER ([phone])[facility] ([facility])[address] [place] [address] WBC (Bld) [#/Vol] 9.4 10*3/uL Normal 3.6-10.7 [facility] Comment on above: Performed By: #### L [id number], [id number] ####Shredding Specialist: JAVID LUTHER ([phone])[facility] ([facility])[address] COMPLETE URINALYSISon 2022 BACTERIA (#/HPF) IN URINE Moderate Abnormal Negative [facility] Comment on above: Performed By: #### L [id number] #### Shredding Specialist: JAVID LUTHER ([phone]) [facility] ([facility]) [address] BILIRUBIN, TOTAL PRESENCE IN URINE Negative Normal Negative [facility] Comment on above: Performed By: #### L [id number] #### Shredding Specialist: JAVID LUTHER ([phone]) [facility] ([facility]) [address] Clarity (U) Clear Normal Clear [facility] Comment on above: Performed By: #### L [id number] #### Shredding Specialist: JAVID LUTHER ([phone]) [facility] ([facility]) [address] Color (U) Yellow Normal Lt. Yellow [facility] Comment on above: Performed By: #### L [id number] #### Shredding Specialist: JAVID LUTHER ([phone]) [facility] ([facility]) [address] GLUCOSE (MG/DL) IN URINE Normal Normal Normal (<70) [facility] Comment on above: Performed By: #### L [id number] #### Shredding Specialist: JAVID LUTHER ([phone]) [facility] ([facility]) [address] HEMOGLOBIN PRESENCE IN URINE 0.2 mg/dL Abnormal Negative [facility] Comment on above: Performed By: #### L [id number] #### Shredding Specialist: JAVID LUTHER ([phone]) [facility] ([facility]) [address] Ketones Ql (U) Negative Normal Negative [facility] Comment on above: Performed By: #### L [id number] #### Shredding Specialist: JAVID LUTHER ([phone]) [facility]) [address] LEUKOCYTE ESTERASE PRESENCE IN URINE BY TEST STRIP Negative Normal Negative [facility] Comment on above: Performed By: #### L [id number] #### Shredding Specialist: JAVID LUTHER ([phone]) [facility] ([facility]) [address] [place] [address] [place] MUCUS (#/LPF) IN URINE SEDIMENT Few Normal Negative [facility] Comment on above: Performed By: #### L [id number] #### Shredding Specialist: JAVID LUTHER ([phone]) [facility] ([facility]) [address] [place] [address] NITRITE PRESENCE IN URINE Negative Normal Negative [facility] Comment on above: Performed By: #### L [id number] #### Shredding Specialist: JAVID LUTHER ([phone]) [facility] ([facility]) [address] [place] [address] NON-SQUAMOUS EPITHELIAL (#/HPF) IN URINE 0-2 Abnormal Negative [facility] Comment on above: Performed By: #### L [id number] #### Shredding Specialist: JAVID LUTHER ([phone]) [facility] ([facility]) [address] [place] [address] pH (U) 6.5 [pH] Normal 5.0-8.0 [facility] Comment on above: Performed By: #### L [id number] #### Shredding Specialist: JAVID LUTHER ([phone]) [facility] ([facility]) [address] [place] [address] Protein (U) [Mass/Vol] Negative Normal Negative [facility] Comment on above: Performed By: #### L [id number] #### Shredding Specialist: JAVID LUTHER ([phone]) [facility] ([facility]) [address] [place] [address] [place] RBC (#/HPF) IN URINE SEDIMENT 3-5 Abnormal 0-2 [facility] Comment on above: Performed By: #### L [id number] #### Shredding Specialist: JAVID LUTHER ([phone]) [facility] ([facility]) [address] [place] [address] Specific gravity (U) [Rel density] 1.010 Normal 1.005-1.03 0 [facility] Comment on above: Performed By: #### L [id number] #### Shredding Specialist: JAVID LUTHER ([phone]) [facility] ([facility]) [address] SQUAMOUS EPITHELIAL CELLS (#/HPF) IN URINE SEDIMENT 6-10 Abnormal 3-5 [facility] Comment on above: Performed By: #### L [id number] #### Shredding Specialist: JAVID LUTHER ([phone]) [facility] ([facility]) [address] UROBILINOGEN (MG/DL) IN URINE Normal Normal Normal (0-1) [facility] Comment on above: Performed By: #### L [id number] #### Shredding Specialist: JAVID ASHKAN ([phone]) [facility] ([facility]) [address] WBC (LEUKOCYTE) (#/HPF) IN URINE SEDIMENT 0-2 Normal 0-5 [facility] Comment on above: Performed By: #### L [id number] #### Shredding Specialist: JAVID ASHKAN ([phone]) [facility] [address] COVID-19, Flu A/B, and RSV C omboon 09-09-2023 Interpretation and review of laboratory results Normal [facility] CT ABDOMEN PELVIS W CONTRAST on [...] EST Abdominal pain, hx of cirrhosis Normal [facility] CT Abdomen and Pelvis W cont [...] Electronically Signed Date/Time: 09/09/2023 8:28 PM EST [facility] Patient Name: CAROLINA HIGHTOWER : [...] Unremarkable osseous structures. No suspicious osseous lesion. [facility] Scot Shah MD - 09/09/2023 [...] Electronically Signed Date/Time: 09/09/2023 8:28 PM EST [facility] Radiology Study observation (narrative) [facility] CT Abdomen and Pelvis W cont rast IVOrdered By: Scot Shah on 09-09-2023 [employer] Work Phone: DRUGS OF ABUSEon 09-09-2023 AMPHETAMINE SCREEN Negative Normal [facility] Comment on above: Performed By: #### L [id number] ####Shredding Specialist: JAVID LUTHER ([phone])[facility] ([facility])[address] BARBITURATES SCREEN Negative Normal [facility] Comment on above: Performed By: #### L [id number] ####Shredding Specialist: JAVID VASQUEZRITA ([phone])[facility] (SBHLAB)[address] BENZODIAZEPINE SCREEN Negative Normal [facility] Comment on above: Performed By: #### L [id number] ####Shredding Specialist: JAVID VASQUEZRITA ([phone])[facility] ([facility])[address] COCAINE METAB. SCREEN Negative Normal [facility] Comment on above: Performed By: #### L [id number] ####Shredding Specialist: JAVID VASQUEZRITA ([phone])[facility] (SBHLAB)[address] METHADONE SCREEN Negative Normal [facility] Comment on above: Performed By: #### L [id number] ####Shredding Specialist: JAVID LUTHER ([phone])[facility] (SB[facility]AB)[address] OPIATES SCREEN Negative Normal [facility] Comment on above: Performed By: #### L [id number] ####Shredding Specialist: JAVID LUTHER ([phone])[facility] (SBHL[facility])[address] OXYCODONE SCREEN Negative Normal [facility] Comment on above: Performed By: #### L [id number] ####Shredding Specialist: JAVID LUTHER ([phone])[facility] (SB[facility])[address] PHENCYCLIDINE SCREEN Negative Normal [facility] Comment on above: Result [...] under separate order. Performed By: #### L [id number] ####Shredding Specialist: JAVID LUTHER ([phone])[facility] (SBHLAB)[address] [place] [address] ECG 12-LEADon 09-09-2023 ECG 12-LEAD IMPRESSION: Sinus rhythm Low voltage, precordial leads Borderline prolonged QT interval Electronically Signed On 09-09-2023 19:59:30 EST by Lenny Macdonald Normal [facility] ED Nursing Noteon 09-09-2023 ED Nursing Note Pt c/o abdominal arturo n that began this afternoon, states that she has hx of cirrhosis. Family states she seems off. Normal [facility] ED Provider Noteon ED Provider Note Emergency Department Encounter [facility] ED Patient: Carolina Hightower : 1975 Date of Evaluation: 09/09/2023 ED Supervising Physician: Lenny Macdonald MD I independently examined and evaluated Carolina Hightower. 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 I did [...] inpatient medicine team they recommend transfer to [facility] as they do not have IRP [...] [employer] Lenny Macdonald MD 09/12/[address] [facility] ED Provider Note EMERGENCY DEPARTMENT ENCOUNTER Pt [...] nodes. Report Dictated on Electronically Signed By: cSot Shah MD Electronically Signed Date/Time: 09/09/2023 8:28 [...] Abnormal BILI (more content not included)... Normal [facility] HCG QUALITATIVE URINEon 08-26 Beta HCG ( test) Ql (U) Negative Normal Negative [facility] Comment on above: Result Comment: Plea se note: Very dilute urine specimens, as indicated by a low specific gravity, may not contain installation service representative levels of hCG. If is still suspected, a first morning urine specimen should be collected 48 hours later and tested. ORDER COMMENTS: is the most common reason for HCG in urine, although choriocarcinoma, hydatidiform mole, and certain nontrophoblastic malignancies also result in detectable urinary HCG levels. Sensitivity = 20mIU/mL. Performed By: #### L [id number] #### Shredding Specialist: JAVID LUTHER ([phone]) [facility] ([facility]) [address] [place] [address] HEPATIC FUNCTION PANELon Albumin [Mass/Vol] 3.2 g/dL Low 3.5-5.0 [facility] Comment on above: Performed By: #### L AB15, [id number], LAB20, LAB99 ####Shredding Specialist: JAVID LUTHER ([phone])[facility] (SBAB)[address] ALP [Catalytic activity/Vol] 149 U/L High 38-126 [facility] Comment on above: Performed By: #### L AB15, [id number], LAB20, LAB99 ####Shredding Specialist: JAVID LUTHER ([phone])[facility] [place] (SBHLAB)[address] ALT [Catalytic activity/Vol] 59 U/L High 0-34 [facility] Comment on above: Performed By: #### L AB15, [id number], LAB20, LAB99 ####Shredding Specialist: JAVID LUTHER ([phone])[facility] [place] (SBHLAB)[address] AST [Catalytic activity/Vol] 124 U/L High 15-46 [facility] Comment on above: Performed By: #### L AB15, [id number], LAB20, LAB99 ####Shredding Specialist: JAVID LUTHER ([phone])[facility] [place] (SBHLAB)[address] Bilirubin [Mass/Vol] 2.7 mg/dL High 0.2-1.3 [facility] Comment on above: Performed By: #### L AB15, [id number], LAB20, LAB99 ####Shredding Specialist: JAVID LUTHER ([phone])[facility] [employer] [facility] (SBHLAB)[address] Bilirubin.indirect [Mass/Vol] 0.0 mg/dL Normal 0.0-0.3 [facility] Comment on above: Performed By: #### L AB15, [id number], LAB20, LAB99 ####Shredding Specialist: JAVID LUTHER ([phone])[facility] [place] (SBHLAB)[address] Protein [Mass/Vol] 7.2 g/dL Normal 6.3-8.2 [facility] Comment on above: Result Comment: KIKE Cohen COMMENTS: CHEMISTRY SPECIMEN SLIGHTLY HEMOLYZED; INTERPRET WITH CAUTION! Performed By: #### L AB15, [id number], LAB20, LAB99 ####Shredding Specialist: JAVID LUTHER ([phone])[facility] [place] (SBHLAB)[address] Hepatic function 2000 panelo n 09-09-2023 Albumin [Mass/Vol] 3.2 g/dL Low 3.5 - 5.0 g/dL [facility] ALP [Catalytic activity/Vol] 149 U/L High 38 - 126 U/L [facility] ALT [Catalytic activity/Vol] 59 U/L High 0 - 34 U/L [facility] AST [Catalytic activity/Vol] 124 U/L High 15 - 46 U/L [facility] Bilirubin [Mass/Vol] 2.7 mg/dL High 0.2 - 1 .3 mg/dL [facility] Bilirubin.conjugated [Mass/Vol] 0.0 mg/dL 0.0 - 0.3 mg/dL [facility] Protein [Mass/Vol] 7.2 g/dL 6.3 - 8.2 g/dL [facility] LIPASEon 09-09-2023 Lipase [Catalytic activity/Vol] 188 U/L Normal 23-300 [facility] Comment on above: Performed By: #### L AB15, [id number], LAB20, LAB99 ####Shredding Specialist: JAVID LUTHER ([phone])[facility] Laboratory - Chemistry and C hemistry - challengeon 09-09-2023 Troponin I.cardiac [Mass/Vol] ng/mL [facility] ng/mL [facility] Beta HCG ( test) Ql Negative Negative [facility] Comment on above: Please note: Very di lute urine specimens, as indicated by a low specific gravity, may not contain installation service representative levels of hCG. If is still suspected, a first morning urine specimen should be collected 48 hours later and tested. Beta HCG ( test) Ql (U) is the most common reason for HCG in urine, although choriocarcinoma, hydatidiform mole, and certain nontrophoblastic malignancies also result in detectable urinary HCG levels. Sensitivity = 20mIU/mL. [facility] Troponin I.cardiac [Mass/Vol] ng/mL NINF - 0.034 ng/mL [facility] Lipase [Catalytic activity/Vol] 188 U/L 23 - 300 U/L [facility] Ammonia (P) [Moles/Vol] 106 umol/L High 9 - 30 umol/L [facility] Laboratory - Microbiology an d Antimicrobial susceptibilityon 09-09-2023 FLUAV RNA PHYLLIS+probe Ql (Resp) Not detected Not Detected [facility] FLUBV RNA PHYLLIS+probe Ql (Resp) Not detected Not Detected [facility] RSV RNA PHYLLIS+probe Ql (Resp) Not detected Not Detected [facility] SARS-CoV-2 (COVID-19) RNA PHYLLIS+probe Ql (Resp) Not detected Not Detected [facility] SARS-CoV-2 (COVID-19) RNA PHYLLIS+probe Ql (Unsp spec) Methodology: real-time, RT-PCR The SARS-CoV-2, Flu A/B, and RSV Combo assay is intended for in vitro diagnostic use under the FDA Emergency Use Authorization (EUA). This test has not been FDA cleared or approved. In compliance with this authorization, please visit www.fda.gov/media/418439/denton nload or www.fda.gov/media/176614/denton nload to access the applicable information sheets. [facility] Lipase [Catalytic activity/V ol]on 09-09-2023 Interpretation and review of laboratory results Normal [facility] MANUAL DIFFERENTIALon 2022 ANISOCYTOSIS PRESENCE IN BLOOD BY LIGHT MICROSCOPY Moderate Abnormal (none) [facility] Comment on above: Performed By: #### L [id number], [id number] ####Shredding Specialist: JAVID LUTHER ([phone])[facility] ([facility])[address] [place] [address] BASOPHILS (10*3/UL) IN BLOOD BY MANUAL COUNT 0.1 10*3/uL Normal 0.0-0.2 [facility] Comment on above: Performed By: #### L [id number], [id number] ####Shredding Specialist: JAVID LUTHER ([phone])[facility] ([facility])[address] [place] [address] BASOPHILS TOTAL PER COUNTED LEUKOCYTES BY MANUAL COUNT 1 Normal [facility] Comment on above: Performed By: #### L [id number], [id number] ####Shredding Specialist: JAVID LUTHER ([phone])[facility] [place] (SBHLAB)[address] [place] [address] [place] BASOPHILS/100 LEUKOCYTES IN BLOOD BY MANUAL COUNT 1 % Normal 0-2 [facility] Comment on above: Performed By: #### L [id number], [id number] ####Shredding Specialist: JAVID LUTHER ([phone])[facility] [place] (SBHLAB)[address] CELLS COUNTED TOTAL (#) IN BLOOD 100 Normal [facility] Comment on above: Performed By: #### L [id number], [id number] ####Shredding Specialist: JAVID LUTHER ([id number])[facility] [place] (SBHLAB)[address] DIFFERENTIAL METHOD Automated differenti al reported after manual slide review Normal [facility] Comment on above: Performed By: #### L [id number], [id number] ####Shredding Specialist: JAVID LUTHER ([phone])[facility] (SBHLAB)[address] [place] [address] [place] EOSINOPHILS (10*3/UL) IN BLOOD BY MANUAL COUNT 0.4 10*3/uL Normal 0.0-0.5 [facility] Comment on above: Performed By: #### L [id number], [id number] ####Shredding Specialist: JAVID LUTHER ([phone])[facility] (SBHLAB)[address] [place] [address] [place] EOSINOPHILS TOTAL PER COUNTED LEUKOCYTES BY MANUAL COUNT 4 High 0-1 [facility] Comment on above: Performed By: #### L [id number], [id number] ####Shredding Specialist: JAVID LUTHER ([phone])[facility] (SB[facility]AB)[address] [place] [address] [place] EOSINOPHILS/100 LEUKOCYTES IN BLOOD BY MANUAL COUNT 4 % Normal 1-6 [facility] Comment on above: Performed By: #### L [id number], [id number] ####Shredding Specialist: JAVID LUTHER ([phone])[facility] (SBHLAB)[address] [place] [address] [place] HYPOCHROMIA (PRESENCE) IN BLOOD BY LIGHT MICROSCOPY Slight Abnormal (none) [facility] Comment on above: Performed By: #### L [id number], [id number] ####Shredding Specialist: JAVID LUTHER ([phone])[facility] [place] (SBHLAB)[address] LEUKOCYTE MORPHOLOGY FINDING IN BLOOD Normal Normal [facility] Comment on above: Performed By: #### L [id number], [id number] ####Shredding Specialist: JAVID LUTHER ([phone])[facility] [place] (SB[facility])[address] LEUKOCYTES (10*3/UL) NUCLEATED ERYTHROCYTE ADJUST 9.4 10*3/uL Normal 3.6-10.7 [facility] Comment on above: Performed By: #### L [id number], [id number] ####Shredding Specialist: JAVID LUTHER ([phone])[facility] [place] ([facility])[address] LYMPHOCYTES (10*3/UL) IN BLOOD BY MANUAL COUNT 2.0 10*3/uL Normal 1.0-4.3 [facility] Comment on above: Performed By: #### L [id number], [id number] ####Shredding Specialist: JAVID LUTHER ([phone])[facility] [place] (SB[facility])[address] LYMPHOCYTES TOTAL PER COUNTED LEUKOCYTES BY MANUAL COUNT 21 Normal [facility] Comment on above: Performed By: #### L [id number], [id number] ####Shredding Specialist: JAVID LUTHER ([phone])[facility] [place] (SBHLAB)[address] [place] [address] [place] LYMPHOCYTES/100 LEUKOCYTES IN BLOOD BY MANUAL COUNT 21 % Normal 20-40 [facility] Comment on above: Performed By: #### L [id number], [id number] ####Shredding Specialist: JAVID LUTHER ([phone])[facility] [place] (SB[facility])[address] MICROCYTES (PRESENCE) IN BLOOD BY LIGHT MICROSCOPY Slight Abnormal (none) [facility] Comment on above: Performed By: #### L [id number], [id number] ####Shredding Specialist: JAVID LUTHER ([phone])[facility] [place] ([facility])[address] MONOCYTES (10*3/UL) IN BLOOD BY MANUAL COUNT 0.7 10*3/uL Normal 0.0-0.8 [facility] Comment on above: Performed By: #### L [id number], [id number] ####Shredding Specialist: JAVID LUTHER ([phone])[facility] [place] ([facility])[address] MONOCYTES TOTAL PER COUNTED LEUKOCYTES BY MANUAL COUNT 7 Normal [facility] Comment on above: Performed By: #### L [id number], [id number] ####Shredding Specialist: JAVID LUTHER ([phone])[facility] (SB[facility])[address] [place] [address] [place] MONOCYTES/100 LEUKOCYTES IN BLOOD BY MANUAL COUNT 7 % Normal 2-10 [facility] Comment on above: Performed By: #### L [id number], [id number] ####Shredding Specialist: JAVID LUTHER ([phone])[facility] [place] ([facility])[address] NEUTROPHILS (SEGS+BANDS) (10*3/UL) BY MANUAL COUNT 6.3 10*3/uL Normal 1.8-7.0 [facility] Comment on above: Performed By: #### L [id number], [id number] ####Shredding Specialist: JAVID LUTHER ([phone])[facility] [place] ([facility])[address] [place] [address] [place] NEUTROPHILS TOTAL PER COUNTED LEUKOCYTES BY MANUAL COUNT 67 Normal [facility] Comment on above: Performed By: #### L [id number], [id number] ####Shredding Specialist: JAVID LUTHER ([phone])[facility] [place] ([facility])[address] OVALOCYTES PRESENCE IN BLOOD BY LIGHT MICROSCOPY Slight Abnormal (none) [facility] Comment on above: Performed By: #### L [id number], [id number] ####Shredding Specialist: JAVID LUTHER ([phone])[facility] [place] ([facility])[address] PLATELET MORPHOLOGY IN BLOOD Normal Normal [facility] Comment on above: Performed By: #### L [id number], [id number] ####Shredding Specialist: JAVID LUTHER ([phone])[facility] ([facility])[address] SEGEMENTED NEUTROPHILS/100 LEUKOCYTES BY MANUAL COUNT 67 % Normal 40-80 [facility] Comment on above: Performed By: #### L [id number], [id number] ####Shredding Specialist: JAVID LUTHER ([phone])[facility] [place] ([facility])[address] Manual differential performe d Ql (Bld)Ordered By: Conner Cardenas on 09-09-2023 Anisocytosis Ql (Bld) Moderate Abnormal (none) [facility] Basophils (Bld) [#/Vol] 0.1 10*3/uL 0.0 - 0.2 10*3/uL [facility] Basophils Manual 1 [facility] Basophils/100 WBC (Bld) 1 % 0 - 2 % [facility] Cells Counted Total (Bld) [#] 100 {cells} [facility] Differential Method Automated differenti al reported after manual slide review [facility] Eosinophils (Bld) [#/Vol] 0.4 10*3/uL 0.0 - 0.5 10*3/uL [facility] Eosinophils Manual 4 High 0 - 1 [facility] Eosinophils/100 WBC (Bld) 4 % 1 - 6 % [facility] Hypochromia Ql (Bld) Slight Abnormal (none) [facility] Interpretation and review of laboratory results Abnormal [facility] Leukocyte morphology finding Nom (Bld) Normal [facility] Lymphocytes (Bld) [#/Vol] 2.0 10*3/uL 1.0 - 4.3 10*3/uL [facility] Lymphocytes Manual 21 [facility] Lymphocytes/100 WBC (Bld) 21 % 20 - 40 % [facility] Microcytes Ql (Bld) Slight Abnormal (none) [facility] Monocytes (Bld) [#/Vol] 0.7 10*3/uL 0.0 - 0.8 10*3/uL [facility] Monocytes Manual 7 [facility] Monocytes/100 WBC (Bld) 7 % 2 - 10 % [facility] Neutrophils (Bld) [#/Vol] 6.3 10*3/uL 1.8 - 7.0 10*3/uL [facility] Neutrophils Manual 67 [facility] Ovalocytes LM Ql (Bld) Slight Abnormal (none) [facility] Platelet morphology finding Nom (Bld) Normal [facility] Segmented neutrophils/100 WBC (Bld) 67 % 40 - 80 % [facility] WBC corrected for nucl RBC (Bld) [#/Vol] 9.4 10*3/uL 3.6 - 10.7 10*3/uL [facility] No Panel Informationon 09-09 [facility] P [place] 55 degrees [facility] CA Interval 157 ms [facility] QRS [place] -7 degrees [facility] QRSD Interval 81 ms [facility] QT Interval 455 ms [facility] QTC Interval 501 ms [facility] T Wave [place] 28 degrees [facility] Sinus rhythm Low voltage, precordial leads Borderline prolonged QT interval Electronically Signed On 09-09-2023 19:59:30 EST by Lenny Grajeda MD - 09/09/2023 IMPRESSION: Sinus rhythm Low voltage, precordial leads Borderline prolonged QT interval Electronically Signed On 09-09-2023 19:59:30 EST by Lenny Macdonald [facility] Interpretation and review of laboratory results Abnormal [facility] CHEMISTRY SPECIMEN S LIGHTLY HEMOLYZED; INTERPRET WITH CAUTION! [facility] Interpretation and review of laboratory results Abnormal [facility] SARS-COV-2, FLU A/B, AND RSV COMBOon [...] In compliance with this authorization, please visit www.fda.gov/media/203648/[place] nload or www.fda.gov/media/808681/denton nload to access the applicable information sheets. Normal [facility] Comment on above: Performed By: #### L [id number] #### Shredding Specialist: JAVID LUTHER ([phone]) [facility] ([facility]) [address] [place] [address] TROPONIN, WITH SERIAL REFLEX on 09-09-2023 Troponin I.cardiac [Mass/Vol] ng/mL Normal <0.034 [facility] Comment on above: Result Comment: KIKE Cohen COMMENTS: Patients with high levels of Biotin oral intake (ie >5 mg/day) may have falsely decreased Troponin levels. Performed By: #### L AB15, [id number], LAB20, LAB99 ####Shredding Specialist: JAVID LUTHER ([phone])[facility] ([facility])[address] [place] [address] Troponin I.cardiac [Mass/Vol ]on 09-09-2023 Interpretation and review of laboratory results Normal [facility] Patients with high l evels of Biotin oral intake (ie >5 mg/day) may have falsely decreased Troponin levels. [facility] Interpretation and review of laboratory results Normal [facility] Patients with high l evels of Biotin oral intake (ie >5 mg/day) may have falsely decreased Troponin levels. [facility] Urinalysis complete panel (U )on 09-09-2023 Bacteria LM.HPF (Urine sed) [#/Area] Moderate Abnormal Negative /HPF [facility] Bilirubin Ql (U) Negative Negative mg/dL [facility] Clarity (U) Clear Clear [facility] Color (U) Yellow Lt. Yellow [facility] Epithelial cells.squamous LM.HPF (Urine sed) [#/Area] 6-10 Abnormal [facility] Glucose Ql (U) Normal Normal (<70) mg/dL [facility] Hemoglobin Ql (U) 0.2 mg/dL Abnormal Negative [facility] Interpretation and review of laboratory results Abnormal [facility] Ketones (U) [Mass/Vol] Negative Negative mg/dL [facility] Leukocyte esterase Test strip Ql (U) Negative Negative Joo/uL [facility] Mucus LM.HPF (Urine sed) [#/Area] Few Negative /LPF [facility] Nitrite Ql (U) Negative Negative [facility] Non-Squamous Epithalial Cells, Urine 0-2 Abnormal Negative /HPF [facility] pH (U) 6.5 [pH] 5.0 - 8.0 pH [facility] Protein (U) [Mass/Vol] Negative Negative mg/dL [facility] RBC LM.HPF (Urine sed) [#/Area] 3-5 Abnormal [facility] Specific gravity (U) [Rel density] 1.010 1.005 - 1.030 [facility] Urobilinogen (U) [Mass/Vol] Normal Normal (0-1) mg/dL [facility] WBC LM.HPF (Urine sed) [#/Area] 0-2 [facility] Vital signson 09-09-2023 Heart rate 73 /min bpm [facility] XR Chest Single viewon 09-09 1. No acute finding. Report Dictated on Electronically Signed By: Jagdeep Will MD Electronically Signed Date/Time: 09/09/2023 6:48 PM [facility] Patient Name: CAROLINA HIGHTOWER : 1975 [id number] Exam Date/Time: 09/09/2023 18:44 Procedure: XR CHEST 1 VIEW Ordering Provider: HARRIS KASSIDY Reason For Exam: shortness of breath SINGLE FRONTAL VIEW OF THE CHEST CLINICAL INDICATION: shortness of breath TECHNIQUE: Single frontal view of the chest COMPARISON: None FINDINGS: Lungs show no significant consolidation. No pleural effusion or pneumothorax. No vascular congestion. Heart size normal. [facility] Jagdeep Will MD - 09/09/2023 Patient Name: [facility] : 1975 [id number] Exam Date/Time: 09/09/2023 18:44 Procedure: XR CHEST [...] Electronically Signed Date/Time: 09/09/2023 6:48 PM EST [facility] Radiology Study observation (narrative) [facility] XR Chest Single viewOrdered By: Jagdeep Will on 09-09-2023 [facility] Work Phone: [facility] SCREENINGon 01-24-2023 [facility] Influenza virus A and B RNA and SARS-CoV-2 (COVID-19) N gene panel PHYLLIS+probe (Resp)on 09-30-2022 FLUAV RNA PHYLLIS+probe Ql (Unsp spec) Negative Negative for Influenza A by RT-PCR [facility] FLUBV RNA PHYLLIS+probe Ql (Unsp spec) Negative Negative for Influenza B by RT-PCR [facility] SARS-CoV-2 (COVID-19) RNA PHYLLIS+probe Ql (Resp) SARS-CoV-2 (Agent of COVID-19) Not Detected by RT-PCR or equivalent method. Not Detected [facility] CBCon 08-04-2018 Erythrocyte distribution width Auto Ratio (RBC) 20.9 % High 11.5-15.0 [facility] Comment on above: Performed By: #### C BC, PT ####[facility] [address] [place] [phone] Hematocrit Auto Volume Fraction (Bld) 41.5 % Normal 36.0-46.0 [facility] Comment on above: Performed By: #### C BC, PT ####[facility] Qcdwlemmyo8310 [phone] Hemoglobin mass conc (Bld) 13.0 g/dL Normal 11.5-15.5 [facility] Comment on above: Performed By: #### C NATALYA, PT ####[facility] [address] [place] [address] MCH Auto Entitic mass (RBC) 25.6 pG Low 26.0-34.0 [facility] Comment on above: Performed By: #### C NATALYA, PT ####[facility] [address] [place] [address] MCHC Auto mass conc (RBC) 31.3 g/dL Normal 30.5-36.0 [facility] Comment on above: Performed By: #### C NATALYA, PT ####[facility] [address] [place] [address] MCV Auto Entitic volume (RBC) 81.9 fL Normal 80.0-100.0 [facility] Comment on above: Performed By: #### C NATALYA, PT ####[facility] [address] [place] [address] Platelet mean volume Auto Entitic volume (Bld) 11.2 fL Normal 9.0-12.7 [facility] Comment on above: Performed By: #### C NATALYA, PT ####[facility] [address] [place] [address] Platelets Auto #/vol (Bld) 227 10*3/uL Normal 150-400 [facility] Comment on above: Performed By: #### C NATALYA, PT ####[facility] [address] [place] [address] RBC Auto #/vol (Bld) 5.07 10*6/uL Normal 3.90-5.20 [facility] Comment on above: Performed By: #### C NATALYA, PT ####[facility] [address] [place] [address] WBC Auto #/vol (Bld) 7.53 10*3/uL Normal 3.70-11.00 [facility] Comment on above: Performed By: #### C NATALYA, PT ####[facility] [address] [place] [address] [address] BIOPSY LIVERon 08-04-2018 CT BIOPSY LIVER * * *Final Report* * *DATE OF EXAM: Aug 04 2018 10:45AM [facility] 2017 - CT BIOPSY LIVER / REASON: [...] note is made of small bilateral intrarenal calculi.Real Time Operator: POOJA Transcribe Date/Time: Aug 04 2018 1:14PDictated by : JAGDEEP STEVENSON MDThireno examination was interpreted and the report reviewed and electronically signed by: JAGDEEP STEVENSON MD on Aug 04 2018 1:18PM [id number] [facility] PT EDon 08-04-2018 PT ED HNO ID: [id number] thor: Wendy StreetRnLONI Nicholeervice: NursingAuthor Type: Registered NurseType: Patient EducationFiled: 08/04/2018 12:25 PMNote Text:POST OP LEARNING RESPONSEINSTRUCTION PROVIDED TO: Patient and family memberMETHOD OF INSTRUCTION: Written instruction - handoutsVerbal instructionPATIENT / FAMILY RESPONSE: Information received as demonstrated byinterest and questionsFOLLOW-UP PLAN: Patient instructed to call with any further issuesSUPPLEMENTAL MATERIAL: NoneREFERRAL (RECOMMENDATION): NoneElectronically Signed By: Wendy Kuo RN In Department: [facility] PT ED HNO ID: [id number] thor: Anderson StreetRnLONI Artervice: NursingAuthor Type: Registered NurseType: Patient EducationFiled: 08/04/2018 9:32 AMNote Text:PRE OP LEARNING ASSESSMENTPROCEDURE/SURGERY: SURGERY: needle biopsy of liverREADINESS TO LEARNCOGNITIVE ABILITY: Alert and orientedMOTIVATION TO LEARN: EagerFAMILY SUPPORT: High - Very involved in pt carePATIENT LEARNS BEST BY: Written Instruction - Hand-outsVerbal InstructionFACTORS AFFECTING LEARNING: NonePHYSICAL LIMITATIONS AFFECTING LEARNING: NoneElectronically Signed By: Anderson Uribe RN [facility] Protimeon 08-04-2018 INR Coag RelTime (Bld) 1.1 {INR} Normal 0.9-1.3 [facility] Comment on above: Result Comment: Roma min K Antagonist (VKA) Therapeutic Range: INR 2 to 3 (Target INR of 2.5)Note: For patients treated with VKA drugs, such as warfarin, the [employer] 2012 Guideline recommends [...] [phone] Performed By: #### C BC, PT ####[facility] [address] [place] [phone] PT Sec 11.3 sec Normal 9.7-13.0 [facility] Comment on above: Performed By: #### C BC, PT ####[facility] [address] [place] [phone] SURGICAL PATHOLOGYon 018 SURGICAL PATHOLOGY Specimen originated from [facility]pecimen #: [id number] Physician: JAGDEEP STEVENSON MD FINAL DIAGNOSISLiver, random [...] formalin in one cassette.Gross examination performed at [facility], [address] [place] [address] [id number] 08/04/2018 3:15:16 PMPatient ID #: [id number] of Report: 08/08/2018Date of Procedure: 08/04/2018Date of Receipt: 08/04/2018Submitted by: JAGDEEP STEVENSON MDLocation: MERADDiagnostic interpretation performed at [place] [id number]. [facility] Comment on above: Performed By: #### P ATHS ####[facility] [address] [place], [place] [phone] HOSPon 07-25-2018 HOSP Patient:Carolina Hightower TMRN: Height:5' [...] LowHEMA* 41.5 % 08/04/2018 46.0 36.0Progress Notes ([facility]):Macie Acevedo RN APRN.HAND MOLD MAKER 07/19/2018 11:53 AM SignedPlease call the patient for an appointment with me so that we can discuss whatis needed in order to proceed with hep C treatment. then, we can get thenecessary things on order for her. Not urgent, so wherever booking. thanks.Macie Acevedo RN ORDER ADMINISTRATOR.Gabrielblack Brisenowillie 07/24/2018 3:36 PM SignedLM for pt to call office and schedule.Love Pearce 07/25/2018 2:16 PM SignedPatient called back and has been scheduled with Macie Acevedo for Dcwfod58/3/18 @ 9:40am, she confirmed this date and time.Love Stokes PsrProgress Notes ([facility]):Mervin Matthews APRN.DEEPIKA 07/14/2018 1:26 PM SignedChief ComplaintPatient [...] a day.She wasreferred to Dr. Garcia in [place]. has hepatitis C genotype 1A. completeblood count showed slight anemia with elevated TIBC levels. Normal thyroidfunction, elevated glucose with a hemoglobin A1c of 6.0. she has had aultrasound of the right upper quadrant in the past that showed fatty liverdisease. it looks like she will be getting a CT-guided liver biopsy in [facility] for this hepatitis workup. With follow-up locally [...] 30.7Abs Lymph 1.00 - 4.00 k/uL 4.04 (H)[place]% % 9.9Abs [place] <0.87 k/uL 1.30 (H)Eosin% % 1.8Abs Eosin [...] her a handout for diabetes diet.- HGB [id number] in 3 months with labs prior.Janet Craig APRN.CNP 07/14/2018 1:07 PM SignedPlease schedule your CT guided biopsy of the liver Normal [facility] Vital Signs Date Time Vital Sign Value Performing Clinician Facility 03-23-2024 17:55-0400 Diastolic Blood Pressure Non-Invasive 62 mm[Hg] [facility] 03-23-2024 17:55-0400 Heart rate 57 /min [facility] 03-23-2024 17:55-0400 Respiratory rate 16 /min [facility] 03-23-2024 17:55-0400 Systolic Blood Pressure Non-Invasive 97 mm[Hg] [facility] 03-23-2024 14:22-0400 Body temperature 97.16 [degF] CARLA ORTAStreetSpark [facility] 03-23-2024 14:22-0400 Body weight 72.6 kg CARLA WorkfaceDANNEMOR[facility] 03-23-2024 14:22-0400 Diastolic Blood Pressure Non-Invasive 86 mm[Hg] CARLA MUHAMMADT DO [facility] 03-23-2024 14:22-0400 Heart rate 72 /min CARLA MITCHELL DO [facility] 03-23-2024 14:220400 Respiratory rate 16 /min CARLA MITCHELL DO [facility] 03-23-2024 14:22-0400 Systolic Blood Pressure Non-Invasive 119 mm[Hg] CARLA MITCHELL DO [facility] 01-31-2024 10:11-0400 Body height 157.5 cm Ashanti Bogner PA-C Work Phone: [facility] 01-31-2024 10:11-0400 Body mass index (BMI) [Ratio] 29.81 kg/m2 Ashanti Bogner PA-C Work Phone: [facility] 01-31-2024 10:11-0400 Body temperature 97.39 [degF] Ashanti Bogner PA-C Work Phone: [facility] 01-31-2024 10:11-0400 Body weight 73.94 kg Ashanti Bogner PA-C Work Phone: [facility] 01-31-2024 10:11-0400 Diastolic blood pressure 54 mm[Hg] Ashanti Bogner PA-C Work Phone: [facility] 01-31-2024 10:11-0400 Heart rate 69 /min Ashanti Bogner PA-C Work Phone: [facility] 01-31-2024 10:11-0400 Respiratory rate 12 /min Ashanti Bogner PA-C Work Phone: [facility] 01-31-2024 10:11-0400 SaO2% (BldA) [Mass fraction] 100 % Ashanti Bogner PA-C Work Phone: [facility] 01-31-2024 10:11-0400 Systolic blood pressure 116 mm[Hg] Ashanti GARCIA-Nuvia Work Phone: [facility] 12-13-2023 13:30-0400 Body temperature 97.9 [degF] Mervin Cristóbal ORDER ADMINISTRATOR.HAND MOLD MAKER Work Phone: [facility] 12-13-2023 13:30-0400 Body weight 81.74 kg Mervin Cristóbal ORDER ADMINISTRATOR.HAND MOLD MAKER Work Phone: [facility] 12-13-2023 13:30-0400 Diastolic blood pressure 62 mm[Hg] Mervin Cristóbal ORDER ADMINISTRATOR.HAND MOLD MAKER Work Phone: [facility] 12-13-2023 13:30-0400 Heart rate 68 /min Mervin Cristóbal ORDER ADMINISTRATOR.HAND MOLD MAKER Work Phone: [facility] 12-13-2023 13:30-0400 Respiratory rate 16 /min Mervin Cristóbal ORDER ADMINISTRATOR.HAND MOLD MAKER Work Phone: [facility] 12-13-2023 13:30-0400 SaO2% (BldA) [Mass fraction] 99 % Mervin Cristóbal ORDER ADMINISTRATOR.HAND MOLD MAKER Work Phone: [facility] 12-13-2023 13:30-0400 Systolic blood pressure 91 mm[Hg] Mervin Cristóbal ORDER ADMINISTRATOR.HAND MOLD MAKER Work Phone: [facility] 11-26-2023 10:270500 Body weight 83.37 kg Dacia Acosta MD Work Phone: [facility] 11-26-2023 10:27-0500 Diastolic blood pressure 70 mm[Hg] Dacia Acosta MD Work Phone: [facility] 11-26-2023 10:27-0500 Heart rate 90 /min Dacia Acosta MD Work Phone: [facility] 11-26-2023 10:27-0500 Respiratory rate 20 /min Dacia Acosta MD Work Phone: [facility] 11-26-2023 10:27-0500 SaO2% (BldA) [Mass fraction] 94 % Dacia Acosta MD Work Phone: [facility] 11-26-2023 10:27-0500 Systolic blood pressure 128 mm[Hg] Dacia Acosta MD Work Phone: [facility] 11-01-2023 15:49-0500 Body temperature 97.5 [degF] Williams Athy PA-C Work Phone: [facility] 11-01-2023 15:49-0500 Body weight 92.08 kg Williams Athy PA-C Work Phone: [facility] 11-01-2023 15:49-0500 Diastolic blood pressure 86 mm[Hg] Williams Athy PA-C Work Phone: [facility] 11-01-2023 15:49-0500 Heart rate 82 /min Williams Athy PA-C Work Phone: [facility] 11-01-2023 15:49-0500 Respiratory rate 20 /min Williams Athy PA-C Work Phone: [facility] 11-01-2023 15:49-0500 SaO2% (BldA) [Mass fraction] 100 % Williams Athy PA-C Work Phone: [facility] 11-01-2023 15:49-0500 Systolic blood pressure 119 mm[Hg] Williams Athy PA-C Work Phone: [facility] 09-15-2023 12:01-0500 Body mass index (BMI) [Ratio] 38.38 kg/m2 Lenny Macdonald MD Work Phone: [facility] 09-15-2023 12:01-0500 Body weight 95.21 kg Lenny Macdonald MD Work Phone: [facility] 09-15-2023 11:39-0500 Body height 157.5 cm Lenny Macdonald MD Work Phone: [facility] 09-15-2023 06:02-0500 Body temperature 97.3 [degF] Lenny Macdonald MD Work Phone: [facility] 09-15-2023 06:02-0500 Diastolic blood pressure 53 mm[Hg] Lenny Macdonald MD Work Phone: [facility] 09-15-2023 06:02-0500 Heart rate 68 /min Lenny Macdonald MD Work Phone: [facility] 09-15-2023 06:02-0500 Respiratory rate 16 /min Lenny Macdonald MD Work Phone: [facility] 09-15-2023 06:02-0500 SaO2% (BldA) [Mass fraction] 98 % Lenny Macdonald MD Work Phone: [facility] 09-15-2023 06:02-0500 Systolic blood pressure 91 mm[Hg] Lenny Macdonald MD Work Phone: [facility] 12-02-2022 12:49-0500 Body temperature 98.29 [degF] Krislyn Aberegg PA Work Phone: [facility] 12-02-2022 12:49-0500 Body weight 94.62 kg Krislyn Aberegg PA Work Phone: [facility] 12-02-2022 12:49-0500 Diastolic blood pressure 78 mm[Hg] Krislyn Aberegg PA Work Phone: [facility] 12-02-2022 12:49-0500 Heart rate 64 /min Krislyn Aberegg PA Work Phone: [facility] 12-02-2022 12:49-0500 Respiratory rate 16 /min Krislyn Aberegg PA Work Phone: [facility] 12-02-2022 12:49-0500 SaO2% (BldA) [Mass fraction] 98 % Krislyn Aberegg PA Work Phone: [facility] 12-02-2022 12:49-0500 Systolic blood pressure 104 mm[Hg] Jamievictoriatimothy GARCIA Work Phone: [facility] 09-29-2022 17:56-0500 Body temperature 98.2 [degF] Ananda Prabhakar MD Work Phone: [facility] 09-29-2022 17:56-0500 Body weight 94.98 kg Ananda Prabhakar MD Work Phone: [facility] 09-29-2022 17:56-0500 Diastolic blood pressure 82 mm[Hg] Ananda Prabhakar MD Work Phone: [facility] 09-29-2022 17:56-0500 Heart rate 67 /min Ananda Prabhakar MD Work Phone: [facility] 09-29-2022 17:56-0500 Respiratory rate 20 /min Ananda Prabhakar MD Work Phone: [facility] 09-29-2022 17:56-0500 SaO2% (BldA) [Mass fraction] 99 % Ananda Prabhakar MD Work Phone: [facility] 09-29-2022 17:56-0500 Systolic blood pressure 122 mm[Hg] Ananda Prabhakar MD Work Phone: [facility] 05-10-2022 15:42-0400 Diastolic blood pressure 96 mm[Hg] Dacia Acosta MD Work Phone: [facility] 05-10-2022 15:42-0400 Systolic blood pressure 148 mm[Hg] Dacia Acosta MD Work Phone: [facility] 05-10-2022 15:39-0400 Body weight 89.18 kg Dacia Acosta MD Work Phone: [facility] 05-10-2022 15:39-0400 Heart rate 92 /min Dacia Acosta MD Work Phone: [facility] 05-10-2022 15:39-0400 Respiratory rate 20 /min Dacia Acosta MD Work Phone: [facility] 05-09-2022 14:43-0400 Body temperature 98.6 [degF] Blanca James ORDER ADMINISTRATOR.HAND MOLD MAKER Work Phone: [facility] 05-09-2022 14:43-0400 Body weight 91.54 kg Blanca Dawson HIRO.HAND MOLD MAKER Work Phone: [facility] 05-09-2022 14:43-0400 Diastolic blood pressure 74 mm[Hg] Blanca Dawson ORDER ADMINISTRATOR.HAND MOLD MAKER Work Phone: [facility] 05-09-2022 14:43-0400 Heart rate 85 /min Blanca Dawson APRN.HAND MOLD MAKER Work Phone: [facility] 05-09-2022 14:43-0400 Respiratory rate 21 /min Blancabryan Dawson APRN.HAND MOLD MAKER Work Phone: [facility] 05-09-2022 14:43-0400 SaO2% (BldA) [Mass fraction] 99 % Blanca Dawson APRN.HAND MOLD MAKER Work Phone: [facility] 05-09-2022 14:43-0400 Systolic blood pressure 126 mm[Hg] Blanca Dawson ORDER ADMINISTRATOR.HAND MOLD MAKER Work Phone: [facility] 03-11-2022 14:26-0400 Body weight 92.08 kg Tresa Priscilla ORDER ADMINISTRATOR.HAND MOLD MAKER Work Phone: [facility] 03-11-2022 14:26-0400 Diastolic blood pressure 64 mm[Hg] Tresa Parkhof ORDER ADMINISTRATOR.HAND MOLD MAKER Work Phone: [facility] 03-11-2022 14:26-0400 Heart rate 62 /min Tresa Tannhof ORDER ADMINISTRATOR.HAND MOLD MAKER Work Phone: [facility] 03-11-2022 14:26-0400 Respiratory rate 14 /min Tresasegundo Parkhof ORDER ADMINISTRATOR.HAND MOLD MAKER Work Phone: [facility] 03-11-2022 14:26-0400 Systolic blood pressure 106 mm[Hg] Tresa Tannhof ORDER ADMINISTRATOR.HAND MOLD MAKER Work Phone: [facility] 01-11-2022 13:23-0400 Body temperature 97.81 [degF] Becca Enmanuel ORDER ADMINISTRATOR.HAND MOLD MAKER Work Phone: [facility] 01-11-2022 13:23-0400 Body weight 96.34 kg Becca Enmanuel ORDER ADMINISTRATOR.HAND MOLD MAKER Work Phone: [facility] 01-11-2022 13:23-0400 Diastolic blood pressure 62 mm[Hg] Becca Enmanuel ORDER ADMINISTRATOR.HAND MOLD MAKER Work Phone: [facility] 01-11-2022 13:23-0400 Heart rate 65 /min Becca Enmanuel ORDER ADMINISTRATOR.HAND MOLD MAKER Work Phone: [facility] 01-11-2022 13:23-0400 Respiratory rate 21 /min Becca Enmanuel ORDER ADMINISTRATOR.HAND MOLD MAKER Work Phone: [facility] 01-11-2022 13:23-0400 SaO2% (BldA) [Mass fraction] 99 % Becca Enmanuel ORDER ADMINISTRATOR.HAND MOLD MAKER Work Phone: [facility] 01-11-2022 13:23-0400 Systolic blood pressure 102 mm[Hg] Becca Enmanuel ORDER ADMINISTRATOR.HAND MOLD MAKER Work Phone: [facility] 08-04-2018 12:36-0500 Body surface area Derived from formula [facility] 08-04-2018 12:11-0500 Body surface area Derived from formula [facility] Encounters Encounter Date Encounter Type Care Provider Facility Start: 03-23-2024 End: 03-23-2024 Emergency department patient visit CARLA STEPHEN [facility] Start: 02-29-2024 ambulatory Dacia brown MD Work Phone: Internal Medicine [facility] Start: 02-07-2024 End: 02-07-2024 ambulatory MELISA MAIN Facility:[facility] Start: 02-07-2024 End: 02-07-2024 Patient encounter procedure Melisa Main MD Work Phone: [facility] Comment on above: Skin ulcer, limited to breakdown of skin (HCC) (Primary Dx); Excoriation (skin-picking) disorder; MRSA (methicillin resistant Staphylococcus aureus); Local infection of skin and subcutaneous tissue Start: 02-06-2024 ambulatory Dacia brown MD Work Phone: [facility] Comment on above: Hematuria Start: 02-02-2024 Telephone encounter Ashanti Squires PA-C Work Phone: [facility] Comment on above: Results Start: 01-31-2024 End: 01-31-2024 ambulatory DACIA Sewell [facility] Facility:[facility] Start: 01-31-2024 End: 01-31-2024 Office outpatient visit 25 minutes Ashanti Squires PA-C Work Phone: [facility] Comment on above: Skin sore (Primary D x); Gross hematuria; Acute cystitis with hematuria; Anxiety with depression Start: 01-19-2024 Refill Dacia brown MD Work Phone: [facility] Comment on above: Refill Request Start: 12-13-2023 End: 12-13-2023 ambulatory DACIA Sewell [facility] Facility:[facility] Start: 12-13-2023 End: 12-13-2023 Office outpatient visit 15 minutes Mervin Matthews APRN.CNP Work Phone: [facility] Comment on above: Chronic hepatitis C without hepatic coma (HCC) (Primary Dx); Cirrhosis of liver with ascites, unspecified hepatic cirrhosis type (HCC) (HCC); Other ascites; Nausea and vomiting, unspecified vomiting type Start: 12-12-2023 Telephone encounter Dacia randhawa MD Work Phone: [facility] Comment on above: Appointment; Patient Update Start: 12-07-2023 ambulatory Priscilla hfofman RN Work Phone: [employer] Start: 11-28-2023 Telephone encounter Dacia randhawa MD Work Phone: [facility] Comment on above: Results Start: 11-26-2023 End: 11-26-2023 ambulatory DACIA MAXWELLMALIBU Facility:[facility] Start: 11-26-2023 End: 11-26-2023 Patient encounter procedure Dacia Acosta MD Work Phone: [facility] [place] Comment on above: Cirrhosis of liver w ith ascites, unspecified hepatic cirrhosis type (HCC) (HCC) (Primary Dx); Recurrent UTI (urinary tract infection); Chronic hepatitis C without hepatic coma (HCC); Nicotine use disorder, F17.2; Gastroesophageal reflux disease, unspecified whether esophagitis present; Major depressive disorder, remission status unspecified, unspecified whether recurrent Start: 11-25-2023 ambulatory Priscilla hoffman RN Work Phone: [employer] Start: 11-24-2023 Patient Outreach Shirlenejuventino russoskyler [facility] Work Phone: Pharmacy Comment on above: Transition Of Care ( TCM Pharmacy-Hospital discharge 11/23/23) Start: 11-18-2023 End: 11-23-2023 Evaluation and management of inpatient KOKO RUIZ Facility:[id number] Start: 11-17-2023 End: 11-18-2023 Emergency department patient visit DACIA ACOSTA Facility:[facility] Start: 11-11-2023 Telephone encounter Dacia randhawa MD Work Phone: [facility] [place] Comment on above: Patient Update Start: 11-07-2023 Telephone encounter Dacia randhawa MD Work Phone: [facility] [place] [facility] Comment on above: Abdominal Pain Start: 11-03-2023 Telephone encounter Dacia randhawa MD Work Phone: [facility] [place] [facility] Comment on above: Patient Question Start: 11-01-2023 End: 11-01-2023 ambulatory DACIA MAXWELLMALIBU Facility:[facility] Start: 11-01-2023 End: 11-01-2023 Patient encounter procedure Williams Salvador PA-C Work Phone: [place] [facility] Comment on above: Open wound of skin ( Primary Dx) Start: 09-16-2023 Telephone encounter Emperatriz Duenas Clinical Communication Start: 09-09-2023 End: 09-15-2023 Evaluation and management of inpatient [facility] Start: 09-09-2023 End: 09-15-2023 Evaluation and management of inpatient Lenny Macdonald MD Work Phone: [facility] Respiratory Unit 7W Comment on above: Small bowel obstruct ion (HCC) (Primary Dx) Start: 03-22-2023 Refill Dacia brown MD Work Phone: [facility] Comment on above: Refill Request Start: 01-27-2023 Telephone encounter Dacia randhawa MD Work Phone: [facility] Comment on above: Medication Request Start: 01-25-2023 Documentation procedure Mammog uriel Coordinator [facility] Start: 01-25-2023 Letter encounter Mammography Coordinator [facility] Department Start: 01-25-2023 Telephone encounter Divya andino MD Work Phone: Mammography Comment on above: Mammogram Result Pete l Back Start: 01-24-2023 End: 01-24-2023 Subsequent hospital visit by physician Screen Mammo [facility] Wstr Mammogram Comment on above: Encounter for screen ing mammogram for breast cancer [Z12.31] Start: 12-02-2022 End: 12-02-2022 Patient encounter procedure Joselito GARCIA Work Phone: [facility] Comment on above: Skin infection (Prim randi Dx) Start: 10-02-2022 Telephone encounter Kaylin song ORDER ADMINISTRATOR.HAND MOLD MAKER Work Phone: [facility] Comment on above: Results Start: 09-29-2022 End: 09-29-2022 Patient encounter procedure Ananda Prabhakar MD Work Phone: [facility] Comment on above: Cellulitis of chin ( Primary Dx); Picking own skin; URI, acute Start: 09-15-2022 ambulatory Mireya Brown MA [facility] Comment on above: Population Health [facility] (HCC Gap/Medicaid) Start: 06-22-2022 Refill Tresa Wells APRN.HAND MOLD MAKER Work Phone: [facility] Comment on above: Refill Request Start: 05-24-2022 ambulatory Dacia brown MD Work Phone: [facility] Start: 05-24-2022 Telephone encounter Dacia randhawa MD Work Phone: [facility] Comment on above: er follow up cristian layne Transition Of Care Start: 05-15-2022 ambulatory Diya Feliciano RN NURSE O N CALL Comment on above: Abscess; Headache Start: 05-10-2022 End: 05-10-2022 Patient encounter procedure Dacia Acosta MD Work Phone: [facility] Comment on above: Dermatitis (Primary Dx) Start: 05-09-2022 End: 05-09-2022 Patient encounter procedure Blanca Dawson APRN.HAND MOLD MAKER Work Phone: [facility] Comment on above: Wound check, abscess (Primary Dx) Start: 05-07-2022 Telephone encounter Hugo santana PA-C Work Phone: Dermatology [facility] Comment on above: Patient Question Start: 03-24-2022 ambulatory Dacia brown MD Work Phone: Internal Medicine [facility] Start: 03-11-2022 End: 03-11-2022 Patient encounter procedure Tresa Wells APRN.HAND MOLD MAKER Work Phone: [facility] Comment on above: Bacterial skin infec tion (Primary Dx); Acne vulgaris; Chronic midline low back pain with bilateral sciatica Start: 03-11-2022 Telephone encounter Dacia randhawa MD Work Phone: [facility] Comment on above: Refill Request Start: 01-12-2022 Telephone encounter Blanca Dawson APRN.HAND MOLD MAKER Work Phone: [facility] Comment on above: Results Start: 01-11-2022 End: 01-11-2022 Patient encounter procedure Becca Singer APRN.HAND MOLD MAKER Work Phone: [facility] Comment on above: Viral illness (Prima ry Dx) Start: 08-04-2018 End: 08-04-2018 Patient encounter procedure [facility] Procedures Date Procedure Procedure Detail Performing Clinician [...] or older (1 - 1-dose 60+ series) [facility] Start: 07-20-2033 DTaP/Tdap/Td Vaccine s (2 - Td or Tdap) DTaP/Tdap/Td Vaccines (2 - Td or Tdap) [facility] Start: 07-20-2033 Urine microalbumin profile DTaP,Tdap,Td Vaccine (2 - Td or Tdap) [facility] Start: 11-23-2026 Diabetes Screening Diabetes Screenin g [facility] Start: 09-15-2026 Diabetes Screening Diabetes Screenin g [facility] Start: 06-24-2024 DIABETES SCREEN DIABETES SCREEN [facility] Start: 06-24-2024 Diabetes Screening Diabetes Screenin g [facility] Start: 05-27-2024 Influenza vaccination Influenz a Vaccine (Season Ended) [facility] Start: 03-20-2024 End: 03-20-2024 Patient encounter procedure 03/20/2024 12:00 PM EDT Office Visit Dermatology [place] [address] [place] [id number] Melisa Main MD [address] [place], [place] [id number] Follow-up disposition: Return in about 4 weeks (around 03/06/2024) for Follow up. [facility] [place] Comment on above: Follow-up dispositio n: Return in about 4 weeks (around 03/06/2024) for Follow up. Start: 03-14-2024 End: 03-14-2024 Patient encounter procedure 03/14/2024 4:00 PM EDT Appointment Mammogram [address] [place], [place] [id number] JEANETH SCREENING Mammogram Comment on above: JEANETH SCREENING Start: 02-21-2024 HPV TESTING HPV TESTING [facility] Start: 02-21-2024 PAP TESTING PAP TESTING [facility] Start: 02-21-2024 Screening for malign ant neoplasm of cervix [facility] Start: 02-07-2024 End: 02-07-2024 Patient encounter procedure 02/07/2024 9:00 AM EDT Office Visit Dermatology [place] [id number] [place] [id number] Melisa Main MD [address] [place] [place] [address] Open wound of skin [T14.8XXA]/ PATIENT INFORMED THAT APPT MIGHT NEED TO BE RESCHEDULED PLEASE CALL PATIENT, NOTICE THAT SLOT WAS LOCK [facility] [place] Comment on above: Open wound of skin [ T14.8XXA]/ PATIENT INFORMED THAT APPT MIGHT NEED TO BE RESCHEDULED PLEASE CALL PATIENT, NOTICE THAT SLOT WAS LOCK Start: 01-25-2024 Mammography [facility] Start: 01-25-2024 Screening for malign ant neoplasm of breast Mammogram Screening [facility] Start: 11-26-2023 End: 02-25-2024 Urinalysis complete panel - Urine [facility] Work Phone: Comment on above: Expected: 11/26/2023 , Expires: 02/25/2024 Start: 2023 Shingrix Vaccine (1 of 2) Shingrix Vaccine (1 of 2) [facility] Start: 2023 Zoster Vaccines (1 o f 2) Zoster Vaccines (1 of 2) [facility] Start: 05-27-2023 Covid-19 Vaccine ( season) Covid-19 Vaccine ( season) [facility] Start: 05-27-2023 Influenza vaccination C [facility] Start: 12-02-2022 End: 02-01-2023 Bacteria identified in Wound by Culture WOUND CULTURE AND GRAM STAIN Microbiology Routine Skin infection Expected: 12/02/2022, Expires: 02/01/2023 [facility] Work Phone: Comment on above: Expected: 12/02/2022 , Expires: 02/01/2023 Start: 05-27-2022 Influenza vaccination C [facility] Start: 05-09-2022 End: 07-09-2022 Bacteria identified in Wound by Culture [facility] Work Phone: Comment on above: Expected: 05/09/2022 , Expires: 07/09/2022 Start: 01-11-2022 End: 01-25-2022 Influenza virus A and B RNA and SARS-CoV-2 (COVID-19) N gene panel - Respiratory specimen by PHYLLIS with probe detection COVID WITH FLUA+B, ROUTINE Microbiology Routine Viral illness Expected: 01/11/2022, Expires: 01/25/2022 [facility] Work Phone: Comment on above: Expected: 01/11/2022 , Expires: 01/25/2022 Start: 08-05-2019 PNEUMOCOCCAL (2 - PCV) PNEUMOCOCCAL (2 - PCV) [facility] Start: 08-05-2019 Pneumococcal vaccination [facility] Start: 2018 COLOGUARD (FIT-DNA) COLOGUARD (FIT-D NA) [facility] Start: 2018 Colonoscopy COLONOSCOPY [facility] Start: 2018 COLORECTAL CANCER SCREENING COLORECTAL CANCER SCREENING [facility] Start: [address] COLONOGRAPHY [facility] Start: 2018 FECAL OCCULT BLOOD FECAL OCCULT BLOO D [facility] Start: 2018 Lipid 1996 panel - Serum or Plasma Lipid Screening [facility] Start: 2018 Lipid panel Lipid Screening [facility] Start: 2018 LIPID SCREEN LIPID SCREEN [facility] Start: 2018 Screening for malign ant neoplasm of colon [facility] Start: 2018 SIGMOIDOSCOPY [facility] Start: 2013 Mammography MAMMOGRAM [facility] Start: 2013 Screening for malign ant neoplasm of breast Mammogram [facility] Start: 2003 Screening for malign ant neoplasm of cervix [facility] Start: 1994 Screening for malign ant neoplasm of cervix Pap Smear [facility] Start: 1992 Hepatitis A Vaccine (1 of 2 - Risk 2-dose series) Hepatitis A Vaccine (1 of 2 - Risk 2-dose series) [facility] Start: 1992 Hepatitis A Vaccines (1 of 2 - Risk 2-dose series) Hepatitis A Vaccines (1 of 2 - Risk 2-dose series) [facility] Start: 1992 HEPATITIS B (1 of 3 - Risk 3-dose series) HEPATITIS B (1 of 3 - Risk 3-dose series) [facility] Start: 1992 Hepatitis B Vaccine (1 of 3 - 19+ 3-dose series) Hepatitis B Vaccine (1 of 3 - 19+ 3-dose series) [facility] Start: 1992 Urine microalbumin profile DTAP,TDAP,TD (1 - Tdap) [facility] Start: 1991 Diabetes mellitus screening Diabetes Screening [facility] Start: 1985 Depresssion Monitoring Depresssion M onitoring [facility] Start: 1978 COVID-19 VACCINE (#1) COVID-19 VACCI NE (#1) [facility] Start: 1978 COVID-19 VACCINE (1) COVID-19 VACCIN E (1) [facility] Start: 1974 HEPATITIS A (1 of 2 - Risk 2-dose series) HEPATITIS A (1 of 2 - Risk 2-dose series) [facility] Start: 1974 MMR Vaccines (1 of 1 - Standard series) MMR Vaccines (1 of 1 - Standard series) [facility] Start: 04-07-1974 COVID-19 VACCINE (#1) COVID-19 VACCI NE (#1) [facility] Start: 1973 HEPATITIS B (1 of 3 - 3-dose series) HEPATITIS B (1 of 3 - 3-dose series) [facility] Start: 1973 Hepatitis B Vaccine (1 of 3 - 3-dose series) Hepatitis B Vaccine (1 of 3 - 3-dose series) [facility] Start: 1973 Hepatitis B Vaccines (1 of 3 - 3-dose series) Hepatitis B Vaccines (1 of 3 - 3-dose series) [facility] Start: 1973 HIV screening HIV Screening [facility] Start: 1973 Screening for malign ant neoplasm of colon [facility] Bacteria identified in Urine by Culture URINE CULTURE Microbiology Routine Gross hematuria Acute cystitis with hematuria 01/31/2024 11:20 AM EDT [facility] Bacteria identified in Wound by Culture WOUND CULTURE AND GRAM STAIN Microbiology Routine Cellulitis of chin 09/29/2022 6:34 PM EST [facility] Work Phone: Bacteria identified in Wound by Culture [facility] Work Phone: End: 03-30-2025 MG Breast Screening JEANETH SCREENING Radiology Routine Encounter for screening mammogram for breast cancer 1 Occurrences starting 02/29/2024 until 03/30/2025 [facility] Work Phone: Comment on above: 1 Occurrences starti ng 02/29/2024 until 03/30/2025 End: 04-23-2023 Screening mammography bi 2-view breast inc cad JEANETH SCREENING Radiology Routine Encounter for screening mammogram for breast cancer 1 Occurrences starting 03/24/2022 until 04/23/2023 [facility] Work Phone: Comment on above: 1 Occurrences starti ng 03/24/2022 until 04/23/2023 [facility] Immunizations Immunization Date Immunization Notes Care Provider Fa [facility] 07-20-2023 tetanus toxoid, redu viridiana diphtheria toxoid, and acellular pertussis vaccine, adsorbed Lenny Macdonald MD Work Phone: [facility] 08-06-2018 influenza, injectabl e, quadrivalent, preservative free Becca Enmanuel ORDER ADMINISTRATOR.HAND MOLD MAKER Work Phone: [facility] 08-06-2018 influenza virus vaccine, unspecified formulation Screen Wstr [facility] 08-05-2018 pneumococcal polysaccharide vaccine, 23 valent Becca Enmanuel ORDER ADMINISTRATOR.HAND MOLD MAKER Work Phone: [facility] NEGATED: Highlighted row has not occurred!09-11-2023 Influenza, injectable, [facility] [place] Canine Kidney, preservative free, quadrivalent Lenny Macdonald MD Work Phone: [facility] Comment on above: Deferred: Patient Re fused Payers Date Payer Category Payer Medicaid [id number] 2015 Medicaid [employer] [id number] 2015-Present [phone] [address] [place] [address] Medicaid [id number] 2015 Medicaid [id number] 1973 Unknown [id number] Social History Date Type Detail Facility Start: 04-14-2017 End: 05-09-2022 Tobacco smoking status NHIS Smokes tobacco daily [facility] Work Phone: History of tobacco use Cigarette Smoker C [facility] Work Phone: Start: 01-11-2022 End: 01-31-2024 Alcohol intake Current drinker of alcohol (finding) [facility] Start: 02-28-2020 History SDOH Alcohol Frequency 3 [facility] Start: 12-10-2011 History SDOH Alcohol Comment occasionally mixed drink [facility] Start: 04-14-2017 End: 05-09-2022 Tobacco Comment maybe more then 1 pack daily [facility] Start: 1975 Sex Assigned At Not on file [facility] Start: 01-01-2022 End: 05-26-2022 Exposure to SARS-CoV-2 (event) Not sure [facility] Work Phone: Start: 04-14-2017 End: 11-18-2023 Cigarettes smoked current (pack per day) - Reported 1 [facility] Work Phone: Start: 04-14-2017 End: 05-09-2022 Tobacco use and exposure Smokeless tobacco non-user [facility] Start: 04-30-2022 End: 05-10-2022 Exposure to SARS-CoV-2 (event) Yes [facility] Start: 02-28-2020 End: 11-18-2023 Alcohol Use Disorder Identification Test - Consumption [AUDIT-C] [facility] Work Phone: How often to you hav e a drink containing alcohol? 2-4 times a month [facility] Work Phone: Average Number of Drinks Not on file [facility] Tobacco smoking stat us NHIS Tobacco smoking consumption unknown [facility] Within the last year , have you been afraid of your partner or ex-partner? No [facility] How often to you hav e a drink containing alcohol? Never [facility] Start: 08-22-2023 Alcohol Comment daily use of liquor and other alcohol [facility] How hard is it for y ou to pay for the very basics like food, housing, medical care, and heating Somewhat hard [facility] (I/We) worried ben er (my/our) food would run out before (I/we) got money to buy more. Never true [facility] Start: 11-17-2023 Alcohol Comment not daily but frequent [facility] Start: 03-23-2024 Tobacco smoking status Heavy tobacco smoker (finding) [facility] Tobacco smoking status Smoker (finding) A [facility] Sex Assigned At Sex [facility] Functional Status Date Assessment Result Facility 03-23-2024 Functional Status Up ad cyn [facility] spital [facility] 03-23-2024 Functional Status Standard Safet y ID band on, Allergy Band on, Call device within reach, Bed in low position, Wheels locked, Visitor at bedside [facility] Mental Status Date Assessment Result Facility 03-23-2024 Mental Status Orientation Oriented x 4 [facility] 03-23-2024 Mental Status [facility] Clinical Notes 01-11-2022 to 03-28-2024 Melisa [...] Locations *1: This test was performed at: [address], [facility] ([place]) 03-28-2024 Note . MICRO - Microbiology PROCEDURE: [...] Locations *1: This test was performed at: [address], [facility] ([place]) 03-23-2024 Hospital Discharge instructions Patient Education 03/23/2024 [...] or higher after 2 days on antibiotics [id number] [employer]. [address] [place] [address]. All rights reserved. This information is not intended as a substitute for professional medical care. Always follow your healthcare professional's instructions. Follow Up Care 03/23/2024 14:19:24 With:DACIA ACOSTA MD Address: [address] [place] [id number] When:2-4 days [facility] 03-23-2024 Note Discharge Instructions Thank you for allowing [facility] to assist you with your healthcare needs. The following is important discharge information regarding your hospital visit. Diagnosis from Today's Visit Cellulitis What to Do Next Instructions from Your Care Team No qualifying data available. Post Acute Orders No qualifying data available. You Need to Schedule the Following Appointments Follow Up with DACIA ACOSTA MD When:Within 2-4 days Where:[address] [place] [id number]- Allergies Wellbutrin aspirin Hives codeine Hives Medications [...] may report side effects to FDA at 3-370-TWB-2637. What other drugs will affect cephalexin? Tell your doctor about all your other medicines, especially: metformin; or probenecid. This list is not complete. Other drugs may affect cephalexin, including prescription and jhbv-zrx-gmhwayk medicines, vitamins, and herbal products. Not all [...] to ensure that the information provided by [employer]. ('[employer]') is accurate, up-to-date, and complete, but no guarantee is made to that effect. Drug information contained herein may be time sensitive. [employer] information has been compiled for use by healthcare practitioners and consumers in the [place] and therefore [employer] does not warrant that uses outside of the [place] are appropriate, unless specifically indicated otherwise. [employer] drug information does not endorse drugs, diagnose patients or recommend therapy. [employer] drug information is an informational resource designed [...] effective or appropriate for any given patient. [employer] does not assume any responsibility for any aspect of healthcare administered with the aid of information [employer] provides. The information contained herein is not intended to cover all possible uses, directions, precautions, warnings, drug interactions, allergic reactions, or adverse effects. If you have questions about the drugs you are taking, check with your doctor, nurse or pharmacist. Copyright 2418-4041 [employer]. Version: 12.. Revision Date: 04/27/2023. Education Materials [...] or higher after 2 days on antibiotics 4960-5031 [employer]. [address] [place] [address]. All rights reserved. This information is not intended as a substitute for professional medical care. Always follow your healthcare professional's instructions. Additional Information VACCINATE! IT SAVES LIVES! Members of the community who have not yet received the COVID-19 vaccine and would like to receive it can visit one of [facility] vaccine clinics. There are many vaccine clinic locations within the [facility]. For locations and available times, please visit [email or web address] It is important to note that some COVID mobile vaccine clinics are held outdoors and may be canceled in rainy or stormy conditions. To learn more about pediatric vaccinations (ages 5-11), we invite you to visit the [facility] webpage. [email or web address] To learn more about the COVID-19 vaccine, we invite you to visit the CDC website for a list of frequently asked questions. https://www.cdc.gov/coronavirus/2 019-ncov/vaccines/faq.html [facility] Patient Portal Access Instructions: Stay connected with your healthcare team and access your personal medical information anytime with the [facility] Patient Portal. If you would like a full copy of your medical records please contact the [facility] Medical Records Department Tuesday through Tuesday between 8a.m. and 4:30p.m. Please follow the directions below to access the portal: 1.Access the email account you provided upon registration to the [facility].2.Look for an invitation email from [facility].3.Open the email and access the invitation link: Accept Invitation to [facility].Fill in the required dhillon to create your account. Sign into [email or web address] with your username and password that you [...] you will allow to register on the [facility] Patient Portal for access to your information. You can also access the [facility] Patient Portal on the [employer]. Simply click on Health Records under Health Data and then click on the [employer] logo. HOW TO SAFELY DISPOSE OF PRESCRIPTION [...] Call your local pharmacy or go to [email or web address] to find one close to you.3.Make use of household items: Use cat litter or old coffee grounds to dispose medications if other options are not available. Mix your drugs with these household products, seal them in an airtight container and throw it into the garbage. Call [facility]: [phone] to be sure your drugs can be [...] aware that I should contact my doctor. 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 Author [...] psych in several months Notes sore on basketballs and footballs reverser Was walking in [place] Something poked it [...] Past Histories independently gathered by the clinical contracting support specialist and the remaining scribed note accurately describes my personal service to the patient. Melisa Main MD [facility] 02-07-2024 History of Present illness Narrative CC: [...] psych in several months Notes sore on basketballs and footballs reverser Was walking in [place] Something poked it [...] Past Histories independently gathered by the clinical contracting support specialist and the remaining scribed note accurately describes my personal service to the patient. Melisa Main MD documented in this encounter [facility] 02-07-2024 Telephone encounter Note Spoke with patient and states that she is overall feeling better. Denies any hematuria now, back pain, nausea, vomiting, back pain, abdominal pain, chills. She is seeing dermatology today for the sore on her chin and foot. She will continue and finish the antibiotic. Ashanti Squires PA-C 02/07/2024 [facility] 02-07-2024 Miscellaneous Notes Spoke with patient and [...] She states she will be going to [facility], but I couldn't talk her into calling [...] - Blood In-ADULT- documented in this encounter [facility] 02-06-2024 Telephone encounter Note Phone was answered, I said isaello a couple times and the phone was hung up on me. [facility] 02-06-2024 Telephone encounter Note Called and left a voicemail for the Patient to call back and ask for a nurse to receive the providers message. Jeri Mesa RN [facility] 02-06-2024 Telephone encounter Note Agree-needs to go to ED now. Ashanti Squires PA-C [facility] 02-06-2024 Telephone encounter Note Protocol recommends Pt [...] She states she will be going to [facility], but I couldn't talk her into calling [...] tied. Protocols used: Urine - Blood In-ADULT- [facility] 02-03-2024 Miscellaneous Notes Pt notified. She verbalized [...] [facility] [place] Madonna Lim MA Please let patient know [...] SQUIRES PA-C 02/02/2024 documented in this encounter [facility] 02-03-2024 Telephone encounter Note Pt notified. She verbalized understanding. Kemal Wright LPN [facility] 02-03-2024 Telephone encounter Note She should use the doxycycline as ordered; if not improving after 2-3 days, or if symptoms worsen, then seek care in ER Dacia Acosta MD [facility] 02-03-2024 Telephone encounter Note Pt informed, verbalized understanding. Pt reports she is now urinating straight blood and reports she may have a fever. Reports she was up all night with urinary frequency. Denies any abd/back pain or vomiting. Please advise. Madonna Lim MA [facility] 02-02-2024 Telephone encounter Note Please let patientknow that her urine culture was also positive for MRSA-covered by doxycycline prescribed-sent to pharmacy. Advise f/u if not improving in 2-3 days, sooner if any worsening symptoms. Seek care in ED for fever >100, vomiting, severe back/abdominal pain. [facility] 02-02-2024 Telephone encounter Note Pt informed, verbalized understanding. [facility] [place]. Madonna Lim MA [facility] 02-02-2024 Telephone encounter Note Please let patient know that her culture did show MRSA on her chin. I have sent a prescription for doxycycline 1 BID to the [facility]. Please use sunscreen/sun protection while on this medication as it can make you more sensitive to the sun. The following approved medication requests have been transmitted electronically. Requested Prescriptions Signed Prescriptions Disp Refills doxycycline (VIBRA-TABS) 100 mg tablet 20 tablet 0 Sig: Take 1 tablet by mouth two times a day for 10 days. Authorizing Provider: ASHANTI SQUIRES PA-C 02/02/2024 [facility] 01-31-2024 Note HNO ID: [id number] Author: ASHANTI SQUIRES PA-C Service: ? Author Type: Physician Administrative Support Technician Type: Progress Notes Filed: 01/31/2024 11:23 Note [...] is scheduled to dermatology next week in [place]. She admits to previous MRSA infection in this area. She also has two sores on her left foot that are similar. Sores are painful, no itching. She tells me she was taken off all her psychiatry medications because of her cirrhosis. Previously on abilify, buspar, cymbalta, xanax. She has a history of drug addiction. She is scheduled to see pyschiatry at the [facility] in March. Tells me she [...] patient indicates understandin (more content not included)... [facility] 01-31-2024 History of Present illness Narrative 01/31/2024 [...] is scheduled to dermatology next week in [place]. She admits to previous MRSA infection in this area. She also has two sores on her left foot that are similar. Sores are painful, no itching. She tells me she was taken off all her psychiatry medications because of her cirrhosis. Previously on abilify, buspar, cymbalta, xanax. She has a history of drug addiction. She is scheduled to see pyschiatry at the [facility] in March. Tells me she has [...] Ashanti Squires PA-C documented in this encounter [facility] 01-19-2024 Telephone encounter Note The following approved [...] 180 days. Authorizing Provider: DACIA ACOSTA MA [facility] 01-19-2024 Miscellaneous Notes The following approved medication [...] Wendy Mcclain LPN. documented in this encounter [facility] 01-19-2024 Telephone encounter Note OK to refill as ordered Dacia Acosta MD [facility] 01-19-2024 Telephone encounter Note Patient has been [...] Please advise. Thank you. Wendy Mcclain LPN. [facility] 12-13-2023 History of Present illness Narrative Chief Complaint Patient presents with: ER F/U: [facility] multiple times from 10/2023-11/3023: abdominal pain, cirrhosis of liver, ascites HPI Carolina Hightower is a 48 year old female who presents here today for Hospital Discharge Follow up. Patient is here for emergency room and hospital follow-up. Patient has had multiple trips to the emergency room at [facility]. This is ranged from October 2023 [...] she has diffuse abdominal pain and her instrument lens inspector cannot fit her into his schedule, she [...] that she needs to return to her instrument lens inspector for evaluation. I discussed that if she [...] APRN.CNP This note was partly generated using Interlude voice recognition dictation and may contain some misspelled or inaccurate words missed on review. documented in this encounter [facility] 12-13-2023 Note HNO ID: [id number] Author: MERVIN MATTHEWS APRN.CNP Service: ? Author Type: Nurse Practitioner Type: Progress Notes Filed: 12/13/2023 14:13 Note Text: Chief Complaint Patient presents with: ER F/U: [facility] multiple times from 10/2023-11/3023: abdominal pain, cirrhosis of liver, ascites HPI Carolina Hightower is a 48 year old female who presents here today for Hospital Discharge Follow up. Patient is here for emergency room and hospital follow-up. Patient has had multiple trips to the emergency room at [facility]. This is ranged from October 2023 [...] she has diffuse abdominal pain and her instrument lens inspector cannot fit her into his schedule, she [...] that she needs to return to her instrument lens inspector for evaluation. I discussed that if she [...] APRN.CNP This note was partly generated using Interlude voice recognition dictation and may contain some misspelled or inaccurate words missed on review. [facility] 12-12-2023 Miscellaneous Notes Pt canceled appointment. Pt [...] make it in. documented in this encounter [facility] 12-07-2023 Note HNO ID: [id number] Author: PRISCILLA RODRIGUEZ RN Service: ? Author Type: Registered Nurse Type: Progress Notes Filed: 12/07/2023 14:51 Note Text: TRANSITION CARE MANAGEMENT (TCM) FOLLOW-UP NOTE Provider Action/FYI: Spoke to patient. States she was admitted to [facility] Tuesday. (12/04/23) Pt states she was admitted for cirrhosis Apologized to the patient. Telephone outreach ended. Patient identified by name and date of : YES Spoke to patient Discharge Network Status: In-Network Discharge Concerns: Pt is currently admitted at [facility] plan for next outreach: No further follow up needed at this time YANLEI Education Ordered -: No Signature Priscilla Rodriguez RN December 07, 2023 [facility] 12-07-2023 History of Present illness Narrative TRANSITION CARE MANAGEMENT (TCM) FOLLOW-UP NOTE Provider Action/FYI: Spoke to patient. States she was admitted to [facility] Tuesday. (12/04/23) Pt states she was admitted for cirrhosis Apologized to the patient. Telephone outreach ended. Patient identified by name and date of : YES Spoke to patient Discharge Network Status: In-Network Discharge Concerns: Pt is currently admitted at [facility] plan for next outreach: No further follow up needed at this time YANELI Education Ordered -: No Signature Priscilla Rodriguez RN December 07, 2023 documented in this encounter [facility] 12-07-2023 Note Patient Outreach ([facility] CAROLINA HIGHTOWER ([id number]) 1975 F Date Time Provider Department 12/07/23 PRISCILLA RODRIGUEZ [facility] During your visit today, we recorded the following information about you: Priscilla Rodriguez RN 12/07/2023 2:51 PM Signed TRANSITION CARE MANAGEMENT (TCM) FOLLOW-UP NOTE Provider Action/FYI: Spoke to patient. States she was admitted to [facility] Tuesday. (12/04/23) Pt states she was admitted for cirrhosis Apologized to the patient. Telephone outreach ended. Patient identified by name and date of : YES Spoke to patient Discharge Network Status: In-Network Discharge Concerns: Pt is currently admitted at [facility] plan for next outreach: No further follow [...] Encounter Status:Closed by PRISCILLA RODRIGUEZ on 12/07/23 [facility] 11-28-2023 Miscellaneous Notes Pt notified. Melisa Vick Ma Her urine test does show infection, so I have ordered 7 days of Macrobid for her. Dacia Acosta MD Patient calling and asking about urine results. Please review and advise, Vanessa Babcock RN documented in this encounter [facility] 03-02-2024 History of Present illness Narrative Transitional [...] Pt here today for a 7 day [facility] Hospital follow up. Pt admitted into [facility] on 11/18/23 for abdominal pain and [...] she has been evaluated multiple times at [facility] for similar symptoms. Paracentesis has been [...] IV Rocephin tomorrow, patient had paracentesis in [facility] without any significant results, he had [...] Dacia Acosta MD documented in this encounter [facility] 11-26-2023 Note HNO ID: [id number] Author: DACIA ACOSTA MD Service: ? Author [...] Pt here today for a 7 day [facility] Hospital follow up. Pt admitted into [facility] on 11/18/23 for abdominal pain and [...] she has been evaluated multiple times at [facility] for similar symptoms. Paracentesis has been [...] IV Rocephin tomorrow, patient had paracentesis in [facility] without any significant results, he had [...] Size: Regular Adult) (more content not included)... [facility] 11-25-2023 Note HNO ID: [id number] Author: PRISCILLA RODRIGUEZ RN Service: ? Author Type: Registered Nurse Type: Progress Notes Filed: 11/28/2023 16:10 Note Text: [facility] 11-25-2023 History of Present illness Narrative documented in this encounter [facility] 11-25-2023 Note Patient Outreach (AM [facility]) CAROLINA HIGHTOWER ([id number]) 1975 F Date Time Provider Department 11/25/23 PRISCILLA RODRIGUEZ [facility] During your visit today, we recorded the [...] seizures Date Reviewed: 11/22/2023 Reviewed by: Aurora Tnag, RN - Fully Assessed Prescriptions as of [...] Encounter Status:Closed by PRISCILLA RODRIGUEZ on 11/28/23 [facility] 11-24-2023 History of Present illness Narrative TRANSITION CARE MANAGEMENT (TCM) PHARMACY CONTACT Provider Action/FYI: Unable to reach patient after unsuccessful outreach attempt(s). TCM medication reconciliation incomplete at this time. VM full Patient unable to be reached after unsuccessful outreach attempt(s). No further attempts to contact patient will be made. SUMMARY: -Pt discharged from [facility] on 11/23/23. -Medication review not done History [...] she has been evaluated multiple times at [facility] for similar symptoms. Paracentesis has been [...] IV Rocephin tomorrow, patient had paracentesis in [facility] without any significant results, he had [...] as instructed every 4 hours as needed. [facility] - [facility] ascorbic acid, vitamin C, (VITAMIN C) 500 mg tablet Take 1 tablet by mouth once daily. [facility] - [facility] Cesar Discontinued: 11/17/2023 7:36 PM NO RECENT DISPENSES Discontinued: 11/17/2023 7:36 PM NO RECENT DISPENSES Discontinued: 11/17/2023 7:36 PM NO RECENT DISPENSES Discontinued: 11/17/2023 7:36 PM NO RECENT DISPENSES ferrous sulfate 325 mg (65 mg iron) tablet Take 1 tablet by mouth once daily. [facility] - Julio Cesar furosemide (LASIX) 20 mg tablet Take 1 tablet by mouth once daily. gabapentin (NEURONTIN) 100 mg capsule Take 1 capsule by mouth twice daily for 180 days. hydrOXYzine HCl (ATARAX) 25 mg tablet Take 1 tablet by mouth every 8 hours as needed. [facility] - Julio Cesar Per AVS Patient [...] 1 tablet once daily for 3 days. [facility] - [facility] #18 tabs spironolactone (ALDACTONE) 50 mg tablet Take 1 tablet by mouth once daily. [facility] - Julio Cesar Potassium Date Value Ref Range Status 11/23/2023 4.2 3.5 - 5.1 mmol/L Final Discontinued: 11/17/2023 7:37 PM NO RECENT DISPENSES Discontinued: 11/17/2023 7:37 PM NO RECENT DISPENSES Preferred pharmacy: [facility] [place] [address] - [address] [facility] [phone] [address] [facility] [address] [facility] - [address] [place] [id number] - [address] - [phone] [address] [place] [id number] Estimated Creatinine Clearance: 85.8 mL/min (based on [...] 2023 9:21 AM documented in this encounter [facility] 11-24-2023 Note HNO ID: [id number] Author: SHIRLENE TELLES RPh Service: ? Author [...] will be made. SUMMARY: -Pt discharged from [facility] on 11/23/23. -Medication review not done History of Present Illness: The following content has been copied and pasted from patient's discharge summary. If discharge summary unavailable, After Visit Summary or last pertinent inpatient notes are copied and pasted. HOSPITAL COURSE: 48 year old [facility], [facility] 17, 2023, for further evaluation of abdominal pain and distention. Patient has known cirrhosis. Recently, she has been evaluated multiple times at [facility] for similar symptoms. Paracentesis has been [...] IV Rocephin tomorrow, patient had paracentesis in [facility] without any significant results, he had [...] as instructed every 4 hours as needed. [facility] - [place] ascorbic acid, vitamin C, (VITAMIN C) 500 mg tablet Take 1 tablet by mouth once daily. [facility]30 - Julio Cesar Discontinued: 11/17/2023 7:36 PM NO RECENT DISPENSES Discontinued: 11/17/2023 7:36 PM NO RECENT DISPENSES Discontinued: 11/17/2023 7:36 PM NO RECENT DISPENSES Discontinued: 11/17/2023 7 (more content not included)... [facility] 11-24-2023 Note Patient Outreach ( [facility]) CAROLINA HIGHTOWER ([id number]) 1975 F Date Time Provider Department 11/24/23 [facility] today, we recorded [...] will be made. SUMMARY: -Pt discharged from [facility] on 11/23/23. -Medication review not done History [...] she has been evaluated multiple times at [facility] for similar symptoms. Paracentesis has been [...] IV Rocephin tomorrow, patient had paracentesis in [facility] without any significant results, he had [...] as instructed every 4 hours as needed. [facility] - D[place] ascorbic acid, vitamin C, (VITAMIN C) 500 mg tablet Take 1 tablet by mouth once daily. [facility] - Julio Cesar Di (more content not included)... [facility] 11-23-2023 Note HNO ID: [id number] Author: AR PIERCE RN Service: Care Management [...] list of mental health facilities in the [place] area. Denies any other needs. Case closed. SIGNATURE: Ar Pierce RN PATIENT NAME: Carolina Hightower DATE: November 23, 2023 TIME: 2:11 PM CONTACT #: [phone] [facility] 11-22-2023 Note HNO ID: [id number] Author: AMOR HERNANDEZ MD Service: Hospital Medicine [...] sepsis from SBP, patient had paracentesis at [facility] ER several days ago, today abdominal [...] VTE Prophylaxis/Anticoagulants 11/18/231744 vte current anticoag therapy ([place] 11/18/231744 activity - mobilize patient ([place] VTE Prophylaxis: VTE prophylaxis appropriate Assesment: [...] reviewed. Patient sti (more content not included)... [facility] 11-22-2023 Note HNO ID: [id number] Author: AR PIERCE RN Service: Care Management [...] Home Advance Directives Current Advance Directive: None [facility] Attempted to Assist with AD Completion: Yes [...] Be able to go home, General wellness [place] Explained: [place] of [place] Given: No Reason Not Given: [...] abdominal pain and distention.Was a transfer from [facility], went to the ICU after a rapid response. Discharge plan to return to home, lives with significant other. They rent a room off of some friends, has bathroom and kitchen privileges. Neither of them drive, usually walks, uses insurance for doctor visits, or friends transport. She quit taking her medications 6 months ago along with mental health services at [facility]. She would like information on services in [facility] for mental health. She states she can use her insurance for the appointments. Will give her the information. She is unsure she will need transportation to home. Will continue to follow. SIGNATURE: Ar Pierce RN PATIENT NAME: Carolina Hightower DATE: November 22, 2023 TIME: 7:18 AM CONTACT #: [phone] [facility] 11-21-2023 Note HNO ID: [id number] Author: AMOR HERNANDEZ MD Service: Hospital Medicine [...] sepsis from SBP, patient had paracentesis at [facility] ER several days ago, today complaining [...] VTE Prophylaxis/Anticoagulants 11/18/231744 vte current anticoag therapy ([place] 11/18/231744 activity - mobilize patient ([place] VTE Prophylaxis: VTE prophylaxis appropriate Assesment: [...] down steroids, contin (more content not included)... [facility] 11-20-2023 Note HNO ID: [id number] Author: MARIAH POWELL MD Service: Critical Care Author Type: Physician Type: Progress Notes Filed: 11/20/2023 15:28 Note Text: [facility] STAFF PHYSICIAN NOTE OF PERSONAL INVOLVEMENT IN [...] [facility] DATE of SERVICE: 11/20/2023 [facility] 11-20-2023 Note HNO ID: [id number] Author: MARIAH TRAVIS APRN.HAND MOLD MAKER Service: Critical Care Author Type: Nurse Practitioner Type: Progress Notes Filed: 11/20/2023 10:02 Note Text: PULMONARY/CRITICAL CARE INTENSIVE MEDICAL/SURGICAL CARE UNIT PROGRESS NOTE Patient Name: Carolina Hightower Account #: Data Unavailable Admission Date: 11/18/2023 Date of Evaluation: 11/20/2023 Time of Evaluation: 9:44 AM SUBJECTIVE Transferred from [place] for paracentesis. Treated for COPD exacerbation with [...] hypercapnia Toxic metabolic (more content not included)... [facility] 11-19-2023 Note HNO ID: [id number] Author: MARIAH POWELL MD Service: Critical Care Author Type: Physician Type: Progress Notes Filed: 11/19/2023 13:58 Note Text: [facility] STAFF PHYSICIAN NOTE OF PERSONAL INVOLVEMENT IN [...] of care, medical plan for the day, professional employer consultant recommendations, medical disposition and current medical [...] providing critical care services: 35 minutes. SIGNATURE: aMriah Powell MD [facility] DATE of SERVICE: 11/19/2023 [facility] 11-19-2023 Note HNO ID: [id number] Author: NILA MOLINA MD Service: Hospital Medicine [...] and diffuse tenderness. Patient was transferred to [facility] for further care. At the time of [...] hypoxemic respiratory failu (more content not included)... [facility] 11-19-2023 Note HNO ID: [id number] Author: ARIADNE JIM, RN Service: Nursing Author Type: Registered Nurse Type: Nursing Progress Note Filed: 11/19/2023 07:36 Note Text: Rapid response called at this time. See rapid response flow sheet and provider note. [facility] 11-11-2023 Miscellaneous Notes Pt notified. She [...] pain . Reports she has been to [facility] ER 3 times in last week. States [...] Provider. Patient unable to confirm any upcoming [facility] appt as of now. This nurse attempted to contact [facility] x 3-no answer at this time and voicemail asks to leave message and they will return call within 24 hours. Pt asking if she must go back to [facility] ER now or can she try to come to her ER F/U appt with Dr. Bell this afternoon? Thank you. documented in this encounter [facility] 11-07-2023 Miscellaneous Notes Noted Dacia Acosta MD Pt calls to report she went to [facility] ER today for abdominal pain and bloating. [...] Jesi Jason LPN documented in this encounter [facility] 11-03-2023 Miscellaneous Notes Patient returns call and [...] Zakia Hughes RN documented in this encounter [facility] 11-01-2023 Note HNO ID: [id number] Author: WILLIAMS SALVADOR PA-C Service: ? Author Type: Physician Administrative Support Technician Type: Progress Notes Filed: 11/01/2023 16:28 Note Text: This note was created using [employer]. Subjective Carolina Hightower is a 48 year [...] PAST SURGICAL HISTORY OF 2018 liver bx [facility] FAMILY HISTORY Problem Relation Age of [...] and given referral to [facility] and [facility]. Patient voiced understanding. Feeling great complaints medicated not sure I know the vaginal I canceled we are lima (more content not included)... [facility] 11-01-2023 History of Present illness Narrative Images from the original note were not included. This note was created using [employer]. Subjective Carolina Hightower is a 48 year [...] PAST SURGICAL HISTORY OF 2018 liver bx [facility] FAMILY HISTORY Problem Relation Age of [...] dermatology and given referral to [facility] and [facility]. Patient voiced understanding. Feeling great complaints medicated not sure I know the vaginal I canceled we are transportation issues like - CONSULT TO DERMATOLOGY Williams Salvador PA-C documented in this encounter [facility] 11-01-2023 Instructions Williams Salvador PA-C - 11/01/2023 4:05 PM EST [facility] [address], [place] [phone] documented in this encounter [facility] 09-20-2023 Telephone encounter Note Unable to contact patient X2 [facility] 09-20-2023 Miscellaneous Notes Unable to contact patient X2 S: Patient admitted to: [facility] 09/09/23 B: Discharged on : 09/15/23 A: Hospital follow up call initiated to discuss any medication changes, follow up appointments and discharge instructions: Small bowel obstruction R: No contact x 1 at : [phone] documented in this encounter [facility] 09-16-2023 Telephone encounter Note S: Patient admitted to: [facility] 09/09/23 B: Discharged on : 09/15/23 A: Hospital follow up call initiated to discuss any medication changes, follow up appointments and discharge instructions: Small bowel obstruction R: No contact x 1 at : [phone] [facility] 09-15-2023 Note Formatting of this n ote might be different from the original. Social work follow up on discharge. SHELL notified by patients bedside RN patient needs assist with transport to home. SHELL spoke to patient to confirm address on file is correct. She reports she typically will use her [employer] for transport and uses their uber/lyft service. SHELL placed call to [employer] [phone]. Transport arranged for meat pickler at [employer] [facility] between 4:12-6:12pm. They will call the unit 15 minutes prior to their arrival . Ref # [id number]. antisqueak worker updated patients bedside RN, who will update the patient. [facility] 09-15-2023 Note Formatting of this n ote might be different from the original. Social work follow up on discharge. SHELL notified by patients bedside RN patient needs assist with transport to home. SHELL spoke to patient to confirm address on file is correct. She reports she typically will use her [employer] for transport and uses their uber/lyft service. SHELL placed call to [employer] [phone]. Transport arranged for meat pickler at [employer] [facility] between 4:12-6:12pm. They will call the unit 15 minutes prior to their arrival . Ref # [id number]. antisqueak worker updated patients bedside RN, who will update the patient. [facility] 09-15-2023 Miscellaneous Notes Social work follow up on discharge. SHELL notified by patients bedside RN patient needs assist with transport to home. SW spoke to patient to confirm address on file is correct. She reports she typically will use her [employer] for transport and uses their uber/lyft service. SW placed call to [employer] [facility] [phone]. Transport arranged for meat pickler at [address] [place] [address] between 4:12-6:12pm. They will call the unit 15 minutes prior to their arrival . Ref # [id number]. antisqueak worker updated patients bedside RN, who will [...] Limits Permission given to speak with patient installation service representative/caregiver as indicated: Yes Confirmation of Payer [...] pain, nausea and vomiting, hx: polysubstance abuse. [facility] diet and Addiction Medicine consulted. Discharge plan home with Significant Other. Meg Herrmann RN Attempted to complete Initial assessment over the phone. Patient currently unavailable/off unit. Will try again as time allows. TCC will follow. documented in this encounter [facility] 09-15-2023 Note Discharge Summary Carolian Hightower : 1975 ADMIT DATE: 09/09/2023 DISCHARGE [...] SIGNIFICANT DIAGNOSTIC STUDIES: US guided abdominal paracentesis [[id number]] Collected: 09/14/23 113 Order Status: Completed Updated: [...] 11:36 AM EST US guided abdominal paracentesis [[id number]] Collected: 09/10/23853 Order Status: Completed Updated: 09/10/23854 Narrative: Patient Name: CAROLINA HIGHTOWER : 1975 Exam Date/Time: 09/10/2023 08:29 Proced (more content not included)... [facility] 09-15-2023 History of Present illness Narrative [...] (S/p paracentesis 09/14 with 1.7L removed) Ascites Dust Box Tender Strength: Not Performed Nutrition Assessment: 47yo F [...] On: Kcal/kg Weight Used for Energy Requirements: [place] Weight for Energy Calculation (kg): 50 kg Total Energy Requirements (kcals/day): 27-32 kcal/kg = 6289-7600 kcal/day Weight Used for Protein Requirements: [place] Weight in Kg Used for Protein Requirements: [...] lb) (stated) % Weight Change (Calculated): 5 [place] Body Weight (lbs) (Calculated): 110 lbs [place] Body Weight (Kg) (Calculated): 50 kg % [place] Body Weight (Calculated): 190.8 % BMI (kg/m2) [...] Continue current diet Latha Lester RD Contact: *[phone] Images from the original note were not [...] 1,000 mL enema, 1 enema, Rectal, TID sqgwbcwl-wwgykfonug-ctazyhsic, , Topical, TID pantoprazole (ProtoNix) 40 mg [...] Saima Tan MD Division of Hospitalist Medicine [facility] Images from the original note were [...] 1,000 mL enema, 1 enema, Rectal, TID wpkxaaka-irdvprlrlx-tuwsctfef, , Topical, TID pantoprazole (ProtoNix) 40 mg [...] Saima Tan MD Division of Hospitalist Medicine [facility] Images from the original note were not included. Hospitalist Progress Note 09/13/2023 Subjective: Admit Date: 09/09/2023 PCP: No primary care provider on file. Room#: W7-116/W7-530 A Brief Hospital course: Patient is 47-year-old [...] Saima Tan MD Division of Hospitalist Medicine [facility] Images from the original note were [...] This note may have been dictated using Inter[employer]ude Medical Practice Edition 2.6 and/or [employer]it[employer] Voice Recognition Feature. The document was proofread; however, unrecognized voice recognition engraver wood errors may be present. Associated attestation - [...] FACS Division of Trauma Department of Surgery [facility] ~~~~~~~~~~~~~~~~~~~~~~~~~~~~~~~~~ ~~~~~~~~~~~~~~~~~~~~~~~~~~~~ This note may have been dictated using [place] Practice Edition 2.6 and/or [employer]it[employer] Voice Recognition Feature. The document was proofread; however, unrecognized voice recognition engraver wood errors may be present. [facility] ADMISSION MEDICATION RECONCILIATION Date: 09/12/23 Room:[facility] A Patient Name: Carolina Hightower Allergies: [...] on last fill dates from patient's [facility]. Home medications to restart if there [...] PM 09/12/2023 4:18 PM Kaylin Camarillo, PharmD Nutrition Assessment Type and Reason for Visit: [...] muscle mass loss Fluid Accumulation: Mild Ascites Dust Box Tender Strength: Not Performed Nutrition Assessment: 47yo F [...] On: Kcal/kg Weight Used for Energy Requirements: [place] Weight for Energy Calculation (kg): 50 kg Total Energy Requirements (kcals/day): 27-32 kcal/kg = 6114-0777 kcal/day Weight Used for Protein Requirements: [place] Weight in Kg Used for Protein Requirements: [...] 05/26/22 198#) % Weight Change (Calculated): 2.8 [place] Body Weight (lbs) (Calculated): 110 lbs [place] Body Weight (Kg) (Calculated): 50 kg % [place] Body Weight (Calculated): 186.9 % BMI (kg/m2) [...] soon to determine Latha Lester RD Contact: *[phone] Images from the original note were not included. Hospitalist Progress Note 09/12/2023 Subjective: Admit Date: 09/09/2023 PCP: No primary care provider on file. Room#: W7-726/[facility]726 A Brief Hospital course: Patient is 47-year-old [...] Saima Tan MD Division of Hospitalist Medicine [facility] Images from the original note were not included. Hospitalist Progress Note 09/11/2023 Subjective: Admit Date: 09/09/2023 PCP: No primary care provider on file. Room#: W7-846/W7-126 A Interval History: Patient is 47-year-old with [...] Valentine MD Division of Hospitalist Medicine [facility] Nutrition rescreen completed. Patient is NPO/Clear [...] to follow closely. documented in this encounter [facility] 09-15-2023 Hospital course Narrative Discharge Summary [...] SIGNIFICANT DIAGNOSTIC STUDIES: US guided abdominal paracentesis [[id number]] Collected: 09/14/23 113 Order Status: Completed Updated: 09/14/231136 Narrative: Patient Name: CAROLINA HIGHTOWER : 1975 [facility]#: [id number] Exam Date/Time: 09/14/2023 09:36 Procedure: US GUIDED [...] 11:36 AM EST US guided abdominal paracentesis [[id number]] Collected: 09/10/23853 Order Status: Completed Updated: 09/10/23854 [...] AM EST CT abdomen pelvis w contrast [[id number]] Collected: 09/09/232018 Order Status: Completed Updated: 09/09/232028 [...] 8:28 PM EST XR chest 1 view [[id number]] Collected: 09/09/231846 Order Status: Completed Updated: 09/09/231848 Narrative: Patient Name: CAROLINA HIGHTOWER [facility] 1975 [id number] Exam Date/Time: 09/09/2023 18:44 Procedure: XR CHEST [...] Your Medications These medications were sent to [id number] [place], [place] - [address] [place] [id number] desvenlafaxine 100 MG 24 hr tablet doxepin 10 MG capsule traZODone 100 MG tablet DIET: Adult diet Regular ACTIVITY: No restriction. COMPLEXITY OF FOLLOW UP: [] Moderate Complexity: follow up within 7-14 calendar days (47045) [] Severe Complexity: follow up within 7 calendar days (62548) FOLLOW UP TESTING, PENDING RESULTS OR REFERRALS AT TRANSITIONAL CARE VISIT: [] Yes [] No PENDING STUDIES: DISPOSITION: Home FACILITY/HOME CARE AGENCY NAME: Follow up with Cristiana Strauss MD [address] [facility] [address] Schedule an appointment as soon as possible [...] 09/15/2023, 12:04 PM documented in this encounter [facility] 09-15-2023 Note Hospitalist Progress Note 09/15/2023 Subjective: Admit Date: 09/09/2023 PCP: No primary care provider on file. Room#: [facility] A Brief Hospital course: Patient is [...] 1,000 mL enema, 1 enema, Rectal, TID nhsgqsua-ernnstffwc-gienwssfk, , Topical, TID pantoprazole (ProtoNix) 40 mg [...] Pedersen MD Raphael Division of Hospitalist Medicine [facility] 09-14-2023 Note Formatting of this n ote might be different from the original. Chart reviewed. Patient had paracentesis today with 1700 ml removed. Surgery is following patient for likely ileus -->no plans for intervention and recommend ADAT. Current discharge plan is home no needs once medically stable. [facility] 09-14-2023 Note Formatting of this n ote might be different from the original. Chart reviewed. Patient had paracentesis today with 1700 ml removed. Surgery is following patient for likely ileus -->no plans for intervention and recommend ADAT. Current discharge plan is home no needs once medically stable. [facility] 09-14-2023 Note Hospitalist Progress Note 09/14/2023 Subjective: Admit Date: 09/09/2023 PCP: No primary care provider on file. Room#: -726/723 A Brief Hospital course: Patient is 47-year-old [...] 1,000 mL enema, 1 enema, Rectal, TID gygmeesq-sgwqebtzlg-omuimhxuj, , Topical, TID pantoprazole (ProtoNix) 40 mg [...] Pedersen MD Raphael Division of Hospitalist Medicine [facility] 09-14-2023 Note Formatting of this n ote might be different from the original. Patient to ultrasound department for paracentesis. History, medications and allergies reviewed. Samuel Pastor PA-C in to speak with patient. Informed consent obtained. 1700 mL clear yellow colored fluid removed. Patient tolerated procedure well. Bandaid applied to site. Patient discharged to [facility] 09-14-2023 Note Formatting of this n ote might be different from the original. Patient to ultrasound department for paracentesis. History, medications and allergies reviewed. Samuel Pastor PA-C in to speak with patient. Informed consent obtained. 1700 mL clear yellow colored fluid removed. Patient tolerated procedure well. Bandaid applied to site. Patient discharged to [facility] 09-13-2023 Note Hospitalist Progress Note 09/13/2023 Subjective: Admit Date: 09/09/2023 PCP: No primary care provider on file. Room#: W7726/W7724 A Brief Hospital course: Patient is 47-year-old [...] Raphael Division of Hospitalist Medicine Acute Care [facility] 09-13-2023 Note Care Management Prog ress Note [...] Stay (Days): 4 GMLOS: No GMLOS Documented [facility] 09-13-2023 Note Formatting of this n ote [...] Stay (Days): 4 GMLOS: No GMLOS Documented [facility] 09-12-2023 Note Hospitalist Progress Note 09/12/2023 Subjective: Admit Date: 09/09/2023 PCP: No primary care provider on file. Room#: W7-466/W7-738 A Brief Hospital course: Patient is 47-year-old [...] Extended Emergency Contact Information Primary Emergency Contact: [place] Relation: Spouse Saima Tan MD Division of Hospitalist Medicine Acute [facility] 09-12-2023 Note Formatting of this n ote might be different from the original. Care Managment Initial Assessment Date: 09/12/2023 Patient Name: Carolina Hightower : 1975 Patient Information Source of Information: Patient Cognition/Language: WFL - Within Functional Limits Permission given to speak with patient installation service representative/caregiver as indicated: Yes Confirmation of Payer [...] home with Significant Other. Meg Herrmann RN [facility] 09-12-2023 Note Formatting of this n ote might be different from the original. Care Managment Initial Assessment Date: 09/12/2023 Patient Name: Carolina Hightower : 1975 Patient Information Source of Information: Patient Cognition/Language: WFL - Within Functional Limits Permission given to speak with patient installation service representative/caregiver as indicated: Yes Confirmation of Payer with patient/family: Yes Payer Name: [employer] [place]: No Confirmation of Primary Care Physician: Confirmed [...] home with Significant Other. Meg Herrmann RN [facility] 09-11-2023 Note Formatting of this n ote might be different from the original. Attempted to complete Initial assessment over the phone. Patient currently unavailable/off unit. Will try again as time allows. TCC will follow. [facility] 09-11-2023 Note Formatting of this n ote might be different from the original. Attempted to complete Initial assessment over the phone. Patient currently unavailable/off unit. Will try again as time allows. TCC will follow. [facility] 09-11-2023 Note Hospitalist Progress Note 09/11/2023 Subjective: Admit Date: 09/09/2023 PCP: No primary care provider on file. Room#: W7-726/W7728 A Interval History: Patient is 47-year-old with [...] Valentine MD Division of Hospitalist Medicine [facility] 09-11-2023 Note ADDICTION MEDICINE CONSULTATION [...] included)... [facility] 09-11-2023 Hospital Discharge instructions Jozef Cordova MD - 09/11/2023 11:48 AM EST Images from the original note were not included. [facility] PROGRAMS Addiction Medicine Intensive Outpatient Program [place] ([facility]): [phone] [place]: [phone] [place]: [phone] Behavioral Health Intensive Outpatient Program [place] ([facility]): [phone] [place]: [phone] First Step [place] ([facility] [phone] [place]: [phone] Partial Hospitalization Program [place] ([facility]): [phone] Traumatic Stress Center [place] ([facility]): [phone] [facility] [place] ([facility]): [phone] Alcoholics Anonymous Meetings [email or web address] [facility] [address] [place] [address], [facility] [address], [place] [address] Saima Tan MD - 09/15/2023 12:01 PM EST F/U with PCP, GI, Addiction Medicine documented in this encounter [facility] 09-11-2023 Consult note Associated Order (s): [...] 09/09/2023 Patient Name: CAROLINA HIGHTOWER : 1975 [id number] Exam Date/Time: 09/09/2023 18:44 Procedure: XR CHEST [...] 455 ms QTC Interval 501 ms P [place] 55 degrees QRS [place] -7 degrees T Wave [place] 28 degrees CA Interval 157 ms CBC [...] clinical information on the day of visit. [facility] 09-11-2023 Consult note Associated Order (s): [...] 09/10/2023 Patient Name: CAROLINA HIGHTOWER : 1975 [id number] Exam Date/Time: 09/10/2023 08:29 Procedure: US GUIDED [...] 09/09/2023 Patient Name: CAROLINA HIGHTOWER : 1975 [id number] Exam Date/Time: 09/09/2023 20:11 Procedure: CT ABDOMEN [...] 455 ms QTC Interval 501 ms P [place] 55 degrees QRS [place] -7 degrees T Wave [place] 28 degrees CA Interval 157 ms CBC [...] day of visit. documented in this encounter [facility] 09-11-2023 Nurse Note Pt was found wandering the hospital by security, confused. Pt brought back by security and she said she was going outside to smoke. She was very upset that she could not have a smoke. Pt threatened to punch someone in the face. Pt is confused. [facility] 09-11-2023 Nurse Note Pt was found wandering the hospital by security, confused. Pt brought back by security and she said she was going outside to smoke. She was very upset that she could not have a smoke. Pt threatened to punch someone in the face. Pt is confused. documented in this encounter [facility] 09-10-2023 Note Attending History an d [...] MD Division of Hospitalist Medicine Inpatient Medical Services/[facility] [employer] Phone: 09-10-2023 History and physical note Images [...] MD Division of Hospitalist Medicine Inpatient Medical Services/[facility] documented in this encounter [facility] 09-10-2023 Emergency department Note Report given to 7W at this time. Transport en route. Laura Antony RN 09/10/23 0501 [facility] 09-10-2023 Emergency department Note Report given to 7W at this time. Transport en route. Laura Antony RN 09/10/23 0501 They are here now to transport the patient to [facility] 09/10/23 0447 Electronically signed by [facility] [employer] [facility] at 09/10/2023 4:47 AM EST [facility] ETA 0430 RN will call report in a few :) [facility] 09/10/23 0432 EMERGENCY DEPARTMENT ENCOUNTER Pt Name: [...] Culture. Procedure Abnormality Status --------- ------ Complete Urinalysis[[id number]] Abnormal Final result Please view results for [...] obstruction. Disposition admission to medical service at [facility]. [facility] unfortunately does not have the capacity to perform paracentesis if deemed necessary. Given this illness provider would like patient be transferred to [facility] for small bowel obstruction management, general surgery consultation. Discussed with Dr. Salas who accepted patient for transfer. Patient will be transferred to [facility]. PROCEDURES: Unless otherwise noted below, none [...] JOSE Collins 09/09/232117 Emergency Department Encounter [facility] ED Patient: Carolina Hightower : 1975 Date of Evaluation: 09/09/2023 ED Supervising Physician: Lenny Macdonald MD I independently examined and evaluated Carolina Hightower. 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 I did [...] inpatient medicine team they recommend transfer to [facility] as they do not have IRP [...] for clarification.) Lenny Macdonald MD Acute Care [facility] Lenny Macdonald MD 09/12/23 1500 Pt c/o abdominal pain that began this afternoon, states that she has hx of cirrhosis. Family states she seems off. documented in this encounter [facility] 09-10-2023 Emergency department Note They are here now to transport the patient to [facility] [employer] 09/10/23 0447 [facility] 09-10-2023 Emergency department Note [facility] ETA 0430 RN will call report in a few :) [employer] 09/10/23 0432 [facility] 09-09-2023 Emergency department Triage note Pt c/o abdominal pain that began this afternoon, states that she has hx of cirrhosis. Family states she seems off. [facility] 09-09-2023 Physician Emergency department Note EMERGENCY [...] Culture. Procedure Abnormality Status --------- ------ Complete Urinalysis[[id number]] Abnormal Final result Please view results for [...] obstruction. Disposition admission to medical service at [facility]. [facility] unfortunately does not have the capacity to perform paracentesis if deemed necessary. Given this illness provider would like patient be transferred to [facility] for small bowel obstruction management, general surgery consultation. Discussed with Dr. Salas who accepted patient for transfer. Patient will be transferred to [facility]. PROCEDURES: Unless otherwise noted below, none [...] signed) Emergency Medicine Provider JOSE Collins 09/09/232117 [facility] 09-09-2023 Physician Emergency department Note Emergency Department Encounter [facility] ED Patient: Carolina Hightower : 1975 Date of Evaluation: 09/09/2023 ED Supervising Physician: Lenny Macdonald MD I independently examined and evaluated Carolina Hightower. 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 I did [...] inpatient medicine team they recommend transfer to [facility] as they do not have IRP [...] [employer] Lenny Macdonald MD 09/12/23 1500 [employer] Phone: 03-24-2023 Miscellaneous Notes Attempted to contact [...] Miladis Blair documented in this encounter [facility] 01-27-2023 Miscellaneous Notes Pt notified. Melisa [...] medication names. Please send RX to [facility] in [place] and advise patient when these have been ordered by provider per patient request. Patient has been identified by name and birthdate. Duration of symptoms: months Person calling: self Call patient at: at home [phone] (home) [phone] (cell) Was an appointment scheduled: No Closing statement: Results or non-symptom based questions: Thank you for calling [facility], your call will be returned within the next business day. [employer] documented in this encounter [facility] 01-25-2023 Miscellaneous Notes January 26, 2023 PID: [id number] Carolina Hightower [facility] [address] [address] Dear Ms. Hgihtower, Your recent breast imaging exam on 01/24/2023 [...] who ordered/prescribed your screening mammogram: Please call [phone] or EXT: [phone] to schedule an appointment for your additional [...] reports are kept on file at [facility] as part of your permanent medical record, and are available for your continuing care. Thank you for allowing us to help in meeting your health care needs. Sincerely, Dr. Estrada Interpreting Radiologist [facility] (Additional imaging) documented in this encounter [facility] 12-02-2022 History of Present illness Narrative Images from the original note were not included. This note was created using [email or web address]. Subjective Carolina Hightower is a 47 year [...] PAST SURGICAL HISTORY OF 2018 liver bx [facility] ALLERGIES Aspirin, Bupropion, Codeine, Prednisone, and [...] JOSE Vega documented in this encounter [facility] 10-02-2022 Miscellaneous Notes Left message of results on secure voicemail. Kayleen Rapp MA Please call patient and inform that her wound culture is negative. She can quit taking the ATB. She needs to follow up as directed. documented in this encounter [facility] 09-29-2022 History of Present illness Narrative Patient [...] Ananda Prabhakar MD documented in this encounter [facility] 09-15-2022 History of Present illness Narrative POPULATION HEALTH NAVIGATION OUTREACH Action/September 15, 2022 1:09 PM Patient is on [facility] Gap list for the following [facility] Gaps F32.9 - Major depression LILLY with [...] Outreach HCC or suspected condition Payer: Payor: [facility] MEDICAID / Plan: [facility] MEDICAID / Product Type: Medicaid / Care [...] 2022 1:09 PM documented in this encounter [facility] 06-23-2022 Miscellaneous Notes Her dose was changed to 100 mg bid, and a prescription was sent for this at her last appt. Dacia Acosta MD This request is from [facility]. Our prescription is 100 mg taken twice [...] 10/2022 was cancelled. documented in this encounter [facility] 05-24-2022 History of Present illness Narrative TRANSITION CARE MANAGEMENT (TCM) INITIAL CONTACT Auto Painter Helper Outreach Provider Action/FYI: 7 day TCM Pt [...] might be hidden SUMMARY: -Pt discharged from [facility] on 05/21/22. -Admitted for: Acute Hepatic Encephalopathy Below copied from [facility] Meditech: History of Present Illness Chief [...] in the past. She is at a [facility]. She is not on lactulose or rifaximin. [...] This patient was seen in conjunction with [employer], Kaylin. I have independently interviewed and examined [...] provider to review documented in this encounter [facility] 05-24-2022 Miscellaneous Notes Pt notified. She [...] Carolina called, sounded very confused was at [facility], thinks got D/C 05/21 for a fall, swelling on the brain. Please advise, . Records located in scanning on PCP desk. Ledy Orantes Ma Carolina Hightower is calling Dacia Acosta MD today Patient was at [facility] this weekend from fall; injury to her head. Patient is confused with information the hospital told her at discharge. Asking the doctor review her records and return call to discuss findings. Patient can be reached at [phone] documented in this encounter [facility] 05-15-2022 Miscellaneous Notes Reason for Call: chin abscess w/ severe pain, new severe headache Outcome: Pt advised to see a physician within 4 hrs. She understands the recommendation and prefers to go to the [place] ED. See note below. Reason for Disposition [...] recommendation and prefers to go to the [place] ED. Pt states she can not get to [facility] by 3:30pm. Pt refuses offer to speak with virtualist and prefers to have someone take her to the [place] ED. documented in this encounter [facility] 05-10-2022 History of Present illness Narrative Chief Complaint Patient presents with: Follow Up HPI Carolina Hightower is a 46 year old female who presents here today for a wound check. Pt scheduled today for a follow up on a wound check. Pt seen in [facility] on 05/09/22 for evaluation of pain and [...] pharmacy closing yesterday. Also has yet to meat pickler today. Pain a 9/10 and described as [...] PAST SURGICAL HISTORY OF 2018 liver bx [facility] Family History FAMILY HISTORY Problem Relation [...] as instructed every 4 hours as needed. Xzvwmeldeuspjvd-Daqijapvl-FZ (BROMFED DM) 2-30-10 mg/5 mL syrup Take [...] 1. 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 No second language tutor was used. Rash Review of Systems Constitutional: [...] PAST SURGICAL HISTORY OF 2018 liver bx [facility] ALLERGIES Aspirin, Bupropion, Codeine, Prednisone, and [...] (Patient not taking: Reported on 03/11/2022 ) Lnpissvgpiqxith-Lffmkvmqk-EN (BROMFED DM) 2-30-10 mg/5 mL syrup^Take 5-10 [...] Blanca Dawson APRN.DEEPIKA documented in this encounter [facility] 05-07-2022 Miscellaneous Notes Called and spoke [...] Please advise. Patient can be reached at [phone]. Patient doesn't use mychart very well. documented in this encounter [facility] 03-11-2022 History of Present illness Narrative This [...] PAST SURGICAL HISTORY OF 2018 liver bx [facility] ALLERGIES Aspirin, Bupropion, Codeine, Prednisone, and [...] as instructed every 4 hours as needed. Bvjwwnydvtppjcf-Unnluuqci-EA (BROMFED DM) 2-30-10 mg/5 mL syrup Take [...] APRN.DEEPIKA This note was partially generated using Interlude voice recognition system. Note was reviewed for accuracy. There may be minor misspellings or grammar miscues with Interlude voice recognition. documented in this encounter [facility] 03-11-2022 Instructions Tresa Wells APRN.CNP - 03/11/2022 2:41 PM EDT 1.) Start keflex for skin infection 2.) Try not to touch face to prevent more bacterial growth. 3.) Recommend a gentle cleanser such as Cetaphil face wash. 4.) Schedule appointment with dermatology: Local would be Boaz Narvaez or Donta Frausto. 5.) Follow up as needed. documented in this encounter [facility] 03-11-2022 Miscellaneous Notes Pt has an appt today with Tresa Wells CNP this can be filled at that time. Hasn't been seen since 08/21/21. Ledy Orantes Ma Please send gabapentin to [facility] in [place]. Thank you. documented in this encounter [facility] 01-12-2022 Miscellaneous Notes Left message for patient with results and recommendations.Jen Neely LPN Negative for flu B, covid and positive for flu A. Please notify thank you documented in this encounter [facility] 01-11-2022 Instructions Becca Singer APRN.DEEPIKA - [...] inability to swallow. documented in this encounter [facility] 01-11-2022 History of Present illness Narrative Subjective [...] have confirmed and edited as necessary, the [facility] Review of Systems Constitutional: Negative for [...] in 24-48 hours with results, available on [employer]teller - COVID WITH FLUA+B, ROUTINE Advised needs follow up with PCP Diagnosis and treatment plan were discussed and questions were answered to the patient's satisfaction. Pt acknowledged understanding of concepts and follow up plan. Specific signs and symptoms that would indicate the need for higher level of care were discussed in detail warranting prompt ER evaluation. Becca Singer APRN.DEEPIKA documented in this encounter [facility] Evaluation + Plan note No data available for this section [facility] Evaluation note Diagnosis Viral illness- Primary Unspecified viral infection, in conditions classified elsewhere and of unspecified site [facility] Diagnosis Bacterial skin infection- Primary Unspecified local infection of skin and subcutaneous tissue Acne vulgaris Other acne Chronic midline low back pain with bilateral sciatica [facility] Diagnosis Encounter for screening mammogram for breast cancer [facility] Diagnosis Wound check, abscess- Primary Encounter for other specified aftercare [facility] Diagnosis Dermatitis- Primary Contact dermatitis and other eczema, due to unspecified cause [facility] Diagnosis Chronic midline low back pain with bilateral sciatica documented in this encounter [facility] note* Diagnosis Cellulitis of chin- Primary Cellulitis and abscess of face Picking own skin Other disorder of impulse control URI, acute Acute upper respiratory infections of unspecified site documented in this encounter [facility] note* Diagnosis Skin infection- Primary Unspecified local infection of skin and subcutaneous tissue documented in this encounter [facility] note* Diagnosis Cellulitis of chin Cellulitis and abscess of face documented in this encounter [facility] note* Diagnosis Low back pain, unspecified back pain laterality, unspecified chronicity, unspecified whether sciatica present documented in this encounter [facility] note* Diagnosis Encounter for screening mammogram for breast cancer documented in this encounter [facility] note* Diagnosis Small bowel obstruction (HCC)- Primary Unspecified intestinal obstruction Small bowel obstruction (HCC) Unspecified intestinal obstruction Polysubstance use disorder documented in this encounter [facility] note* Diagnosis Open wound of skin- Primary documented in this encounter [facility] note* Diagnosis Cirrhosis of liver with ascites, [...] unspecified whether recurrent documented in this encounter [facility] note* Diagnosis Chronic hepatitis C without hepatic coma (HCC)- Primary Chronic hepatitis C without mention of hepatic coma Cirrhosis of liver with ascites, unspecified hepatic cirrhosis type (HCC) (HCC) Other ascites Nausea and vomiting, unspecified vomiting type documented in this encounter [facility] note* Diagnosis Low back pain, unspecified back pain laterality, unspecified chronicity, unspecified whether sciatica present documented in this encounter [facility] note* Diagnosis Skin sore- Primary Unspecified disorder of skin and subcutaneous tissue Gross hematuria Acute cystitis with hematuria Acute cystitis Anxiety with depression documented in this encounter [facility] note* Diagnosis Skin ulcer, limited to breakdown of skin (HCC)- Primary Excoriation (skin-picking) disorder MRSA (methicillin resistant Staphylococcus aureus) Methicillin resistant Staphylococcus aureus in conditions classified elsewhere and of unspecified site Local infection of skin and subcutaneous tissue Unspecified local infection of skin and subcutaneous tissue [facility] Diagnosis Encounter for screening mammogram for breast cancer documented in this encounter [facility] for referral (narrative)* Diagnostic Procedure Only (Routine) - Pending Review Specialty Diagnoses / Procedures Referred By Marivel cao Referred To Contact [facility] Diagnoses Encounter for screening mammogram for breast cancer Procedures JEANETH SCREENING SCREENING MAMMOGRAPHY BI 2-VIEW BREAST INC Dacia Rice MD [address] [place] [address] [facility] [address] [place] [address] Referral ID Status Reason Start Date Expiration Date Visits Requested Visits Authorized [id number] Pending Review Auto-Generat ed Referral 03/24/2022 04/23/2023 1 1 [facility] for referral (narrative)* Diagnostic Procedure Only (Routine) - Closed Specialty Diagnoses / Procedures Referred By Marivel cao Referred To Contact [facility] Diagnoses Encounter for screening mammogram for breast cancer Procedures JEANETH SCREENING SCREENING MAMMOGRAPHY BI 2-VIEW BREAST INC Dacia Rice MD [address] [place] [address] [facility] [address] [place] [address] Referral ID Status Reason Start Date Expiration Date V isits Requested Visits Authorized [id number] Closed Auto-Generate d Referral 03/24/2022 04/23/2023 1 1 [facility] for referral (narrative)* Diagnostic Procedure Only (Routine) - Authorized Specialty Diagnoses / Procedures Referred By Marivel cao Referred To Contact [facility] Diagnoses Encounter for screening mammogram for breast cancer Procedures JEANETH SCREENING SCREENING MAMMOGRAPHY BI 2-VIEW BREAST INC Dacia Rice MD [address] [place] [address] [facility] [address] [place] [address] Referral ID Status Reason Start Date Expiration Date Visits Requested Visits Authorized [id number] Authorized Auto-Generat ed Referral 02/29/2024 03/30/2025 1 1 [facility] for visit Narrative* Diagnostic Procedure Only (Routine) - Closed Specialty Diagnoses / Procedures Referred By Marivel t Referred To Contact [facility] Diagnoses Encounter for screening mammogram for breast cancer Procedures JEANETH SCREENING SCREENING MAMMOGRAPHY BI 2-VIEW BREAST INC CAD Dacia Acosta MD [address] [place] [address] [facility] [address] [place] [address] Referral ID Status Reason Start Date Expiration Date V isits Requested Visits Authorized [id number] Closed Auto-Generate d Referral 03/24/2022 04/23/2023 1 1 [facility] Summary Purpose Family History No Family History Records FoundNo Family History Records FoundNo Family History Records FoundNo Family History Records FoundNo Family History Records Found No data available for this section No Family History Records Found Advance Directives No Advanced Directives Records FoundDocuments on File Type Date 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 Advance Directive(s) 08/05/2018 8:00 PM Advance Directive(s) 08/04/2018 9:24 AM Documents on File Type Date 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 Advance Directive(s) 08/05/2018 8:00 PM [...] vulgaris Procedures CONSULT TO DERMATOLOGY Tresa Wells APRN.HAND MOLD MAKER [address] [place] [address] Referral ID Status Reason Start Date Expiration Date Visits Requested Visits Authorized [id number] Ref Not Required PCP Requested Referral 03/11/2022 03/11/2023 1 1 Specialty Diagnoses / Procedures Referred By Contac t Referred To Contact Saima Tan MD [address] [place] [address] Referral ID Status Reason Start Date Expiration Date V isits Requested Visits Authorized [id number] Pending Review 1 1 Specialty Diagnoses / Procedures Referred By Contac t Referred To Contact Dermatology Diagnoses Open wound of skin Procedures CONSULT TO DERMATOLOGY Williams Salvador PA-C [address] [place] [address] Referral ID Status Reason Start Date Expiration Date Visits Requested Visits Authorized [id number] Ref Not Required PCP Requested Referral 11/01/2023 10/31/2024 1 1 Additional Source Comments INFORMATION SOURCE (unrecogn ized section and content) DATE CREATED AUTHOR 09/03/2018 [facility] DATE CREATED AUTHOR AUTHOR'S ORGANIZ ATION 10/02/2023 [facility] DATE CREATED AUTHOR AUTHOR'S ORGANIZ ATION 11/25/2023 [facility] DATE CREATED AUTHOR AUTHOR'S ORGANIZ ATION 11/27/2023 [facility] DATE CREATED AUTHOR AUTHOR'S ORGANIZ ATION 03/05/2024 [facility] DATE CREATED AUTHOR AUTHOR'S ORGANJOSE ATION 03/30/2024 [facility] ([place]) Source Comments (unrecognize d section and content) In the event this informatio n is protected by the Federal Confidentiality of Alcohol and Drug Abuse Patient Records regulations: The Federal rules restrict any use of the information to criminally investigate or prosecute any alcohol or drug abuse patient.[facility] the event this information is protected by the Federal Confidentiality of Alcohol and Drug Abuse Patient Records regulations: The Federal rules restrict any use of the information to criminally investigate or prosecute any alcohol or drug abuse patient.[facility] the event this information is protected by the Federal Confidentiality of Alcohol and Drug Abuse Patient Records regulations: The Federal rules restrict any use of the information to criminally investigate or prosecute any alcohol or drug abuse patient.[facility] the event this information is protected by the Federal Confidentiality of Alcohol and Drug Abuse Patient Records regulations: The Federal rules restrict any use of the information to criminally investigate or prosecute any alcohol or drug abuse patient.[facility] the event this information is protected by the Federal Confidentiality of Alcohol and Drug Abuse Patient Records regulations: The Federal rules restrict any use of the information to criminally investigate or prosecute any alcohol or drug abuse patient.[facility] the event this information is protected by the Federal Confidentiality of Alcohol and Drug Abuse Patient Records regulations: The Federal rules restrict any use of the information to criminally investigate or prosecute any alcohol or drug abuse patient.[facility] the event this information is protected by the Federal Confidentiality of Alcohol and Drug Abuse Patient Records regulations: The Federal rules restrict any use of the information to criminally investigate or prosecute any alcohol or drug abuse patient.[facility] the event this information is protected by the Federal Confidentiality of Alcohol and Drug Abuse Patient Records regulations: The Federal rules restrict any use of the information to criminally investigate or prosecute any alcohol or drug abuse patient.[facility] the event this information is protected by the Federal Confidentiality of Alcohol and Drug Abuse Patient Records regulations: The Federal rules restrict any use of the information to criminally investigate or prosecute any alcohol or drug abuse patient.[facility] the event this information is protected by the Federal Confidentiality of Alcohol and Drug Abuse Patient Records regulations: The Federal rules restrict any use of the information to criminally investigate or prosecute any alcohol or drug abuse patient.[facility] the event this information is protected by the Federal Confidentiality of Alcohol and Drug Abuse Patient Records regulations: The Federal rules restrict any use of the information to criminally investigate or prosecute any alcohol or drug abuse patient.[facility] the event this information is protected by the Federal Confidentiality of Alcohol and Drug Abuse Patient Records regulations: The Federal rules restrict any use of the information to criminally investigate or prosecute any alcohol or drug abuse patient.[facility] the event this information is protected by the Federal Confidentiality of Alcohol and Drug Abuse Patient Records regulations: The Federal rules restrict any use of the information to criminally investigate or prosecute any alcohol or drug abuse patient.[facility] the event this information is protected by the Federal Confidentiality of Alcohol and Drug Abuse Patient Records regulations: The Federal rules restrict any use of the information to criminally investigate or prosecute any alcohol or drug abuse patient.[facility] the event this information is protected by the Federal Confidentiality of Alcohol and Drug Abuse Patient Records regulations: The Federal rules restrict any use of the information to criminally investigate or prosecute any alcohol or drug abuse patient.[facility] the event this information is protected by the Federal Confidentiality of Alcohol and Drug Abuse Patient Records regulations: The Federal rules restrict any use of the information to criminally investigate or prosecute any alcohol or drug abuse patient.[facility] the event this information is protected by the Federal Confidentiality of Alcohol and Drug Abuse Patient Records regulations: The Federal rules restrict any use of the information to criminally investigate or prosecute any alcohol or drug abuse patient.[facility] the event this information is protected by the Federal Confidentiality of Alcohol and Drug Abuse Patient Records regulations: The Federal rules restrict any use of the information to criminally investigate or prosecute any alcohol or drug abuse patient.[facility] the event this information is protected by the Federal Confidentiality of Alcohol and Drug Abuse Patient Records regulations: The Federal rules restrict any use of the information to criminally investigate or prosecute any alcohol or drug abuse patient.[facility] the event this information is protected by the Federal Confidentiality of Alcohol and Drug Abuse Patient Records regulations: The Federal rules restrict any use of the information to criminally investigate or prosecute any alcohol or drug abuse patient.[facility] the event this information is protected by the Federal Confidentiality of Alcohol and Drug Abuse Patient Records regulations: The Federal rules restrict any use of the information to criminally investigate or prosecute any alcohol or drug abuse patient.[facility] Hospital[facility] the event this information is protected by the Federal Confidentiality of Alcohol and Drug Abuse Patient Records regulations: The Federal rules restrict any use of the information to criminally investigate or prosecute any alcohol or drug abuse patient.[facility] the event this information is protected by the Federal Confidentiality of Alcohol and Drug Abuse Patient Records regulations: The Federal rules restrict any use of the information to criminally investigate or prosecute any alcohol or drug abuse patient.[facility] the event this information is protected by the Federal Confidentiality of Alcohol and Drug Abuse Patient Records regulations: The Federal rules restrict any use of the information to criminally investigate or prosecute any alcohol or drug abuse patient.[facility] the event this information is protected by the Federal Confidentiality of Alcohol and Drug Abuse Patient Records regulations: The Federal rules restrict any use of the information to criminally investigate or prosecute any alcohol or drug abuse patient.[facility] the event this information is protected by the Federal Confidentiality of Alcohol and Drug Abuse Patient Records regulations: The Federal rules restrict any use of the information to criminally investigate or prosecute any alcohol or drug abuse patient.[facility] the event this information is protected by the Federal Confidentiality of Alcohol and Drug Abuse Patient Records regulations: The Federal rules restrict any use of the information to criminally investigate or prosecute any alcohol or drug abuse patient.[facility] the event this information is protected by the Federal Confidentiality of Alcohol and Drug Abuse Patient Records regulations: The Federal rules restrict any use of the information to criminally investigate or prosecute any alcohol or drug abuse patient.[facility] HospitalIn the event this information is protected by the Federal Confidentiality of Alcohol and Drug Abuse Patient Records regulations: The Federal rules restrict any use of the information to criminally investigate or prosecute any alcohol or drug abuse patient.[facility] Hospital[facility] the event this information is protected by the Federal Confidentiality of Alcohol and Drug Abuse Patient Records regulations: The Federal rules restrict any use of the information to criminally investigate or prosecute any alcohol or drug abuse patient.[facility] the event this information is protected by the Federal Confidentiality of Alcohol and Drug Abuse Patient Records regulations: The Federal rules restrict any use of the information to criminally investigate or prosecute any alcohol or drug abuse patient.[facility] the event this information is protected by the Federal Confidentiality of Alcohol and Drug Abuse Patient Records regulations: The Federal rules restrict any use of the information to criminally investigate or prosecute any alcohol or drug abuse patient.[facility] HospitalIn the event this information is protected by the Federal Confidentiality of Alcohol and Drug Abuse Patient Records regulations: The Federal rules restrict any use of the information to criminally investigate or prosecute any alcohol or drug abuse patient.[facility] HospitalIn the event this information is protected by the Federal Confidentiality of Alcohol and Drug Abuse Patient Records regulations: The Federal rules restrict any use of the information to criminally investigate or prosecute any alcohol or drug abuse patient.[facility] HospitalIn the event this information is protected by the Federal Confidentiality of Alcohol and Drug Abuse Patient Records regulations: The Federal rules restrict any use of the information to criminally investigate or prosecute any alcohol or drug abuse patient.[facility] HospitalIn the event this information is protected by the Federal Confidentiality of Alcohol and Drug Abuse Patient Records regulations: The Federal rules restrict any use of the information to criminally investigate or prosecute any alcohol or drug abuse patient.[facility] HospitalIn the event this information is protected by the Federal Confidentiality of Alcohol and Drug Abuse Patient Records regulations: The Federal rules restrict any use of the information to criminally investigate or prosecute any alcohol or drug abuse patient.[facility] HospitalIn the event this information is protected by the Federal Confidentiality of Alcohol and Drug Abuse Patient Records regulations: The Federal rules restrict any use of the information to criminally investigate or prosecute any alcohol or drug abuse patient.[facility] Reason for Visit (unrecogniz ed section [...] (HCC) Procedures . Cindi Salas MD [address] [address] [facility] Respiratory [address] [place] [id number] Referral ID Status Reason Start Date Expiration Date Visits Re quested Visits Authorized [id number] 1 Reason Comments Derm Problem Sore [...] Care Teams (unrecognized sec tion and content) Photoengraving Supervisor Relationship Specialty Start Date End Date Dacia Acosta MD [address] [place], [place] [id number] PCP - General Family Practice 08/24/10 Photoengraving Supervisor Relationship Specialty Start Date End Date Dacia Acosta MD [address] [place] [address] PCP - General Family Practice 08/24/10 Photoengraving Supervisor Relationship Specialty Start Date End Date Dacia Acosta MD [address] [place] [address] PCP - General Family Practice 08/24/10 Photoengraving Supervisor Relationship Specialty Start Date End Date Dacia Acotsa MD [address] [place] [address] PCP - General Family Practice 08/24/10 Photoengraving Supervisor Relationship Specialty Start Date End Date Dacia Acosta MD [address] [place] [address] PCP - General Family Practice 08/24/10 Photoengraving Supervisor Relationship Specialty Start Date End Date Dacia Acosta MD [address] [place] [address] PCP - General Family Practice 08/24/10 Photoengraving Supervisor Relationship Specialty Start Date End Date Dacia Acosta MD [address] [place] [address] PCP - General Family Practice 08/24/10 Photoengraving Supervisor Relationship Specialty Start Date End Date Dacia Acosta MD [address] [place] [address] PCP - General Family Practice 08/24/10 Photoengraving Supervisor Relationship Specialty Start Date End Date Dacia Acosta MD [address] [place] [address] PCP - General Family Practice 08/24/10 Photoengraving Supervisor Relationship Specialty Start Date End Date Dacia Acosta MD [address] [place] [address] PCP - General Family Practice 08/24/10 Photoengraving Supervisor Relationship Specialty Start Date End Date Dacia Acosta MD [address] [place] [address] PCP - General Family Medicine 08/24/10 Photoengraving Supervisor Relationship Specialty Start Date End Date Dacia Acosta MD [address] [place] [address] PCP - General Family Medicine 08/24/10 Photoengraving Supervisor Relationship Specialty Start Date End Date Dacia Acosta MD [address] [place] [address] PCP - General Family Medicine 08/24/10 Photoengraving Supervisor Relationship Specialty Start Date End Date Dacia Acosta MD [address] [place] [address] PCP - General Family Medicine 08/24/10 Photoengraving Supervisor Relationship Specialty Start Date End Date Dacia Acosta MD [address] [place] [address] PCP - General Family Medicine 08/24/10 Photoengraving Supervisor Relationship Specialty Start Date End Date Dacia Acosta MD [address] [place] [address] PCP - General Family Medicine 08/24/10 Photoengraving Supervisor Relationship Specialty Start Date End Date Dacia Acosta MD [address] [place] [address] PCP - General Family Medicine 08/24/10 Photoengraving Supervisor Relationship Specialty Start Date End Date Dacia Acosta MD [address] [place] [address] PCP - General Family Medicine 08/24/10 Photoengraving Supervisor Relationship Specialty Start Date End Date Dacia Acosta MD [address] [place] [address] PCP - General Family Medicine 08/24/10 Photoengraving Supervisor Relationship Specialty Start Date End Date Dacia Acosta MD [address] [place] [address] PCP - General Family Medicine 08/24/10 Photoengraving Supervisor Relationship Specialty Start Date End Date Dacia Acosta MD [address] [place] [address] PCP - General Family Medicine 08/24/10 Photoengraving Supervisor Relationship Specialty Start Date End Date Dacia Acosta MD [address] [place] [address] PCP - General Family Medicine 08/24/10 Priscilla Rodriguez RN [address] [place] [address] [facility] 11/24/23 Photoengraving Supervisor Relationship Specialty Start Date End Date Dacia Acosta MD [address] [place] [address] PCP - General Family Medicine 08/24/10 Priscilla Rodriguez RN [address] [place] [address] [facility] 11/24/23 Photoengraving Supervisor Relationship Specialty Start Date End Date Dacia Acosta MD [address] [place] [address] PCP - General Family Medicine 08/24/10 Priscilla Rodriguez RN [address] [place] [address] [facility] 11/24/23 Photoengraving Supervisor Relationship Specialty Start Date End Date Dacia Acosta MD [address] [place] [address] PCP - General Family Medicine 08/24/10 Priscilla Rodriguez, NASH [address] [place] [address] [facility] 11/24/23 Photoengraving Supervisor Relationship Specialty Start Date End Date Dacia Acosta MD [address] [place] [address] PCP - General Family Medicine 08/24/10 Priscilla Rodriguez RN [address] [place] [address] [facility] 11/24/23 12/07/23 Photoengraving Supervisor Relationship Specialty Start Date End Date Dacia Acosta MD [address] [place] [address] PCP - General Family Medicine 08/24/10 Photoengraving Supervisor Relationship Specialty Start Date End Date Dacia Acosta MD [address] [place] [address] PCP - General Family Medicine 08/24/10 Photoengraving Supervisor Relationship Specialty Start Date End Date Dacia Acosta MD [address] [place] [address] PCP - General Family Medicine 08/24/10 Photoengraving Supervisor Relationship Specialty Start Date End Date Dacia Acosta MD [address] [place] [address] PCP - General Family Medicine 08/24/10 Photoengraving Supervisor Relationship Specialty Start Date End Date Dacia Acosta MD [address] [place] [address] PCP - General Family Medicine 08/24/10 Photoengraving Supervisor Relationship Specialty Start Date End Date Dacia Acosta MD [address] [place], [place] [address] PCP - General Family Medicine 08/24/10 Photoengraving Supervisor Relationship Specialty Start Date End Date Dacia Acosta MD [address] [place], [place] [id number] PCP - General Family Medicine 08/24/10 Scheduled [...] (See Alternative - Provider: Ricardo Landry RN) dohijgsc-gatuteaitr-gx lymyxin (Neosporin) ointment (COMPLETED) Topical, Once, On Tue09/13/23 at 0345, For 1 dose, Apply to 0539 (Given - Provider: Jt Parsons RN) kzcpbwmk-fdexmzypag-zs lymyxin (Neosporin) ointment Topical, 3 times daily, [...] Parsons RN) 06 (Given - Provider: Haritha Martinez, NASH) potassium chloride (Klor-Con) packet 40 mEq [...] sedation for opioid reversal - MUST notify weatherization and housing inspector provider immediately after first dose, may [...] Kylah Parks RN)1952 (Given - Provider: Haritha Martienz RN) 0156 (Given - Provider: Haritha Martinez [...] - Provider: Haritha Martinez, NASH) sodium chloride ([place]) 0.65 % nasal spray 2 spray 2 [...] BE BASED ON THE PRIMARY CLINICAL RECORDS. [facility] [employer] [facility]. provides no warranty or guarantee of the accuracy or completeness of information in this document.
[2024-04-12] VITALS (7 sets, daily range): BP systolic 85–113; BP diastolic 31–80; PULSE 57–65; RESP 14–18; TEMP 36.4–36.6; O2SAT 95–100; BMI 29.8
[2024-04-12] MEDS: Gabapentin 100 MG Capsule PO ×3 (00:18→21:10)
[2024-04-12] MEDS: Albumin Human 25% (100 mL) 25 GM/100 ML BAG IV (00:52)
[2024-04-12 01:21] LABS: Alcohol, Blood (Medical)-Serum < 3.0 mg/dL
[2024-04-12 08:13] LABS: Absolute Lymphocyte Count 1.41 X10^3/uL (0.83-4.51); Absolute Neutrophil Count 3.1 X10^3/uL (2.0-7.7); Basophil# 0.04 X10^3/uL; Basophil% 0.8 % (0-1); Eosinophil# 0.22 X10^3/uL; Eosinophils% 4.2 % (0-5); Hematocrit 30.8 % (37-47); Hemoglobin 10.3 g/dL (12.0-15.0); Lymphocyte # 1.41 X10^3/ul (0.83-4.51); Lymphocyte % 26.7 % (19-41); Mean Corp Hgb Conc 33.4 g/dL (32-36); Mean Corpuscular Hgb 29.4 pg (27.0-32.0); Mean Platelet Vol. 11.1 fl (6.2-12.0); Monocyte# 0.51 X10^3/uL; Monocyte% 9.6 % (0-10); NRBC Flagged by Analyzer 0 % (0-5); Neutrophil # 3.09 X10^3/uL (2.7-7.7); Neutrophil % 58.3 % (47-70); POSITIVE COUNT YES; Platelet Count 56 K/mm3 (150-450); RBC Distribution Width CV 18.2 % (11.6-14.6); RBC Distribution Width SD 58.2 fl (35.1-43.9); White Blood Count 5.3 K/mm3 (4.4-11.0)
[2024-04-12 08:59] LABS: ALB/GLOB Ratio 0.7 RATIO (0.9-2.4); AST(SGOT) 125 U/L (15-37); Alanine Aminotransfer ALT/SGPT 83 U/L (13-56); Albumin, Serum 2.5 g/dL (3.2-5.0); Alkaline Phosphatase 116 U/L (45-117); Anion Gap 5 (5-15); BUN 10 mg/dL (7-18); BUN/Creat Ratio 13.9 RATIO (10-20); Calcium,Total 8.6 mg/dL (8.5-10.1); Chloride 113 mmol/L (98-107); Creatinine, Serum 0.72 mg/dL (0.55-1.02); EST Glomerular Filtration Rate 91 mL/min (>60); Est Glom Filt Rate - Afr Amer 110 mL/min (>60); Globulin 3.7 g/dL (2.2-4.2); Glucose 87 mg/dL (74-106); Magnesium 1.9 mg/dL (1.6-2.6); Phosphorus 3.2 mg/dL (2.5-4.9); Potassium 3.5 mmol/L (3.5-5.1); Protein, Total 6.2 g/dL (6.4-8.2); Sodium Level 141 mmol/L (136-145); Thyroid Stim Hormone (TSH) 1.66 uIU/mL (0.358-3.74)
[2024-04-12 09:01] LABS: Amphetamine Urine VISTA NEGATIVE (<1000 ng/mL); Barbiturate Urine VISTA NEGATIVE (< 200 ng/mL); Benzodiazepine Urine VISTA NEGATIVE (< 200 ng/mL); Cocaine Urine VISTA NEGATIVE (< 300 ng/mL); Ecstacy Urine VISTA NEGATIVE (< 500 ng/mL); Methadone Urine VISTA NEGATIVE (< 300 ng/mL); PCP Urine VISTA NEGATIVE (< 25 ng/mL); THC Urine VISTA POSITIVE (< 50 ng/mL); Vista UDS pH Range 7
--- NOTE | 2024-04-12 09:22 | US_ITS ---
PROCEDURE: Ultrasound guided paracentesis. DATE OF EXAMINATION: April 12, 2024.. INDICATION: Female, 48 years old. Ascites. PHYSICIAN: Isidro Burnett M.D. TECHNIQUE: The risks, benefits, and alternatives to the procedure were explained to the patient. The specific risks of bleeding, infection, and damage to bowel were detailed and accepted. Witnessed informed consent was obtained. The abdomen was ultrasonographically surveyed. An appropriate pocket of fluid was identified at the right/left lower quadrant. The skin were cleaned and prepped in the usual sterile fashion. Using ultrasound guidance, the peritoneal cavity was accessed with a 5-Pashto paracentesis needle/catheter system. The trocar was removed. Not enough fluid for safe paracentesis. The catheter was removed and a sterile dressing was applied. The procedure was well tolerated. US/Paracentesis with US IMPRESSION: Attempted paracentesis. Not enough fluid. Electronically Signed: Isidro Burnett MD at 15:25 EDT ,
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
[2024-04-12] MEDS: Nalbuphine 10 MG/ML Ampul IV ×3 (11:04→23:39)
[2024-04-12] MEDS: Pantoprazole Sodium 40 MG in 0.9% Normal Saline (100mL MB+) 100 ML 330 MG IV (11:38)
[2024-04-12] MEDS: busPIRone 5 MG Tablet 10 MG PO ×4 (11:38→21:09)
[2024-04-12] MEDS: Topiramate 50 MG Tablet PO (11:38)
[2024-04-12] MEDS: Ascorbic Acid 500 MG Tablet PO (11:38)
[2024-04-12] MEDS: Venlafaxine XR 37.5 MG Capsule PO (11:39)
--- NOTE | 2024-04-12 14:39 | CASEMGMT ---
Case Management Assessment Social Work SW?to room to meet with patient for initial transition planning/care coordination?assessment.?SW?introduced self and role at [facility].? Pt voices understanding and consents to?assessment.? Pt is A/Ox4 and answers all questions appropriately.?? Care providers, pharmacy, and demographics verified. PCP: Dr Acosta Specialists: Dr Porras Preferred Pharmacy:[place], but will use [facility] for d/c meds Insurance: [facility] Living Will/HPOA:?None LNOK: Vannesa, daughter [phone] Cell Ph Living Arrangements: Previously lived with SO, but recently broke up, so now living [place] Transportation:?Previously, SO; now, daughter. Pt would like to get her license back DME: ?None HHC/SNF: None PLAN: D/c to Daughter's home MIRIAM Clemente
[2024-04-12] MEDS: Lidocaine 2% (20 ml mdv) 20 ML Vial INFILT (14:42)
--- NOTE | 2024-04-12 16:30 | PCM.PN.HOSP ---
Reason for Visit Reason for Visit: Diagnoses Chronic viral hepatitis C (04/11/24) Iron deficiency anemia secondary to blood loss (chronic) (04/11/24) Iron deficiency anemia, unspecified (04/11/24) Thrombocytopenia, unspecified (04/11/24) Other psychoactive substance abuse, uncomplicated (04/11/24) Unspecified cirrhosis of liver (04/11/24) Acute cystitis without hematuria (04/11/24) Other ascites (04/11/24) Subjective Subjective Patient was seen and examined today, she went to radiology for paracentesis today with or without enough fluid to remove. Patient complains of flank pain, I have elected to place her on Nubain rather than give her morphine or Dilaudid. Patient remains on IV antibiotics for her UTI. Objective Data Objective Data Vital Signs: Vital Signs Temp Pulse Resp BP Pulse Ox O2 Del Method 97.9 F 57 L 16 108/72 96 Room Air 04/12/24 15:20 04/12/24 15:20 04/12/24 15:20 04/12/24 15:20 04/12/24 15:20 04/12/24 15:20 Oxygen Delivery Method Room Air Weight: 73.6 kg Body Mass Index (BMI) 29.8 Intake & Output: Intake and Output for Last 24 Hours 04/10/24 04/11/24 04/12/24 23:59 23:59 23:59 Intake Total 50 / 50 450 / 450 Output Total 600 / 600 Balance 50 / 50 -150 / -150 Lab / Micro Data 04/12/24 07:10 04/12/24 07:10 Labs: Laboratory Results - last 24 hr 04/11/24 18:05: WBC 6.8, RBC 3.76 L, Hgb 11.1 L, Hct 32.6 L, MCV 86.7, MCH 29.5, MCHC 34.0, RDW Std Deviation 56.5 H, RDW Coeff of Katalina 17.8 H, Plt Count 59 L, MPV 11.8, Immature Gran % (Auto) 0.300, Neut % (Auto) 67.1, Lymph % (Auto) 21.1, [place] % (Auto) 8.4, Eos % (Auto) 2.4, Baso % (Auto) 0.7, Absolute Neuts (auto) 4.5, Absolute Lymphs (auto) 1.43, Nucleated RBC % 0, PT 18.1 H, INR 1.5, Sodium 139, Potassium 3.8, Chloride 110 H, Carbon Dioxide 21.0, Anion Gap 8, BUN 11, Creatinine 0.77, Estim Creat Clear Calc 82.39, Est GFR (MDRD) Af Amer 101, Est GFR (MDRD) Non-Af 84, BUN/Creatinine Ratio 14.2, Glucose 93, Calcium 9.0, Total Bilirubin 2.10 H, Direct Bilirubin 0.88 H, AST 159 H, ALT 107 H, Alkaline Phosphatase 131 H, Total Protein 7.2, Albumin 2.6 L, Globulin 4.6 H, Lipase 49 04/11/24 18:51: Urine Opiates Screen NEGATIVE, Urine Methadone Screen NEGATIVE, Ur Barbiturates Screen NEGATIVE, Ur Phencyclidine Scrn NEGATIVE, Ur Amphetamines Screen NEGATIVE, MDMA (Ecstasy) Screen NEGATIVE, U Benzodiazepines Scrn NEGATIVE, Urine Cocaine Screen NEGATIVE, U Cannabinoids Screen POSITIVE H, Ur Drug Screen Comment 04/11/24 18:59: Urine Color Yellow, Urine Clarity Cloudy, Urine pH 7.0, Ur Specific [place] 1.010, Urine Protein 30 H, Urine Glucose (UA) Normal, Urine Ketones Negative, Urine Occult Blood 250 H, Urine Nitrite Negative, Urine Bilirubin Negative, Urine Urobilinogen Normal, Ur Leukocyte Esterase 500 H, Urine RBC 0 SEEN, Urine WBC >100 SEEN, Ur Squamous Epith Cells 0 SEEN, Urine Bacteria 0 SEEN, Urine Mucus 0 SEEN 04/12/24 00:45: Ethyl Alcohol < 3.0, Blood Type A POSITIVE, Antibody Screen NEGATIVE 04/12/24 07:10: WBC 5.3, RBC 3.50 L, Hgb 10.3 L, Hct 30.8 L, MCV 88.0, MCH 29.4, MCHC 33.4, RDW Std Deviation 58.2 H, RDW Coeff of Katalina 18.2 H, Plt Count 56 L, MPV 11.1, Immature Gran % (Auto) 0.400, Neut % (Auto) 58.3, Lymph % (Auto) 26.7, [place] % (Auto) 9.6, Eos % (Auto) 4.2, Baso % (Auto) 0.8, Absolute Neuts (auto) 3.1, Absolute Lymphs (auto) 1.41, Nucleated RBC % 0, Sodium 141, Potassium 3.5, Chloride 113 H, Carbon Dioxide 23.0, Anion Gap 5, BUN 10, Creatinine 0.72, Estim Creat Clear Calc 87.80, Est GFR (MDRD) Af Amer 110, Est GFR (MDRD) Non-Af 91, BUN/Creatinine Ratio 13.9, Glucose 87, Calcium 8.6, Phosphorus 3.2, Magnesium 1.9, Total Bilirubin 1.50 H, AST 125 H, ALT 83 H, Alkaline Phosphatase 116, Total Protein 6.2 L, Albumin 2.5 L, Globulin 3.7, Albumin/Globulin Ratio 0.7 L, TSH 1.66 Radiography Diagnostic Testing: Radiology Impression Abdomen/Pelvis CT 04/11/24 19:07 IMPRESSION: Mild right hydronephrosis and hydroureter extending to the distal ureterovesical junction without evidence of ureteral stone. A 9 mm nonobstructive stone is seen within the right kidney. Correlate for history of a recently passed stone. Short interval follow-up ultrasound is recommended to assess for resolution. Correlate with urine for evidence of superimposed infection. Cirrhotic liver with large volume ascites and splenomegaly. Mild gallbladder wall thickening, commonly secondary to surrounding ascites. Gallbladder is mildly distended which may be secondary to fasting. Consider gallbladder ultrasound to better assess for cholelithiasis or gallbladder inflammation. Nonspecific short segment small bowel distention in the left upper abdomen, possibly be transient from peristalsis. Radiographic follow-up recommended to exclude developing obstruction. Electronically Signed: Abimael Ta MD at 20:33 EDT , Paracentesis Ultrasound 04/12/24 09:22 IMPRESSION: Attempted paracentesis. Not enough fluid. Electronically Signed: Isidro Burnett MD at 15:25 EDT , Physical Exam Const alert, oriented x3 and no apparent distress General Appearance: cooperative, well kempt and well developed Orientation / Consciousness: awake, oriented to person, oriented to place and oriented to time HEENT normocephalic, head/scalp atraumatic and moist oral mucous membranes Eyes PERRL, EOMs intact bilaterally and conjunctivae normal Neck supple, no JVD, thyroid normal and no carotid bruits General: trachea midline Resp normal respiratory effort, no retractions, no use of accessory muscles and clear to auscultation bilaterally Auscultation: Negative for rales, rhonchi or wheezes Cardio regular rate, regular rhythm, S1 normal heart sound, S2 normal heart sound, no murmurs, no rub and no gallops GI normal to inspection, nondistended, normoactive bowel sounds, soft to palpation, non-tender and non-distended Extremity no clubbing, cyanosis or edema Skin no rashes or lesions noted General Skin Exam: no breakdown Neuro oriented x3, CN's II-XII intact bilaterally, moves all extremities, no focal motor deficits and no sensory deficits noted Sensorium / Orientation: awake and alert Speech: speech normal Psych affect normal Assessment & Plan Assessment/Plan (1) Acute cystitis without hematuria: PLAN: Plan 1. Acute cystitis-organism unknown at this time, I could not find a pending urine culture on this patient so I do not know if one was even collected. Patient will remain on IV Rocephin #2 ascites-not significant enough to perform paracentesis, patient will continue to follow-up with her GI physician #3 cirrhosis of the liver-secondary to past intake of alcohol-complicates care, management, recovery, and prognosis #4 elevated liver enzymes secondary to #3, not significant at this time Total clinical time spent by myself addressing the patient's medical issues, reviewing all of the data, and collaborating with patient's care team: 35 minutes Charges/Coding Visit Charges Inpatient E&M: 22831 Subs Hosp L2
--- NOTE | 2024-04-12 17:36 | EX.PCM.CON.G ---
HPI Consult Data Date of Consult: 04/12/24 HPI Narrative Reason for Consultation: Ascites HPI Narrative: CAROLINA BONILLA, is a 48 F who presents with worsening abdominal distention. She has a past medical history of cirrhosis secondary to hepatitis C and alcohol complicated by hepatic encephalopathy, esophageal and gastric varices, chronic thrombocytopenia, splenomegaly, neutropenia, macrocytic anemia. The last time she was here at [facility] was in November 2023 where she underwent paracentesis with ~3,200 cc of clear fluid aspirated complicated by UTI who presents to [facility] ER complaining of increasing abdominal girth and cloudy urine with Right flank pain. Ms. Bonilla reports her symptoms began approximately one month prior to admission with the gradual-onset of progressively worsening edema across her abdomen. She states she had a similar presentation in November of this year with worsening cirrhosis requiring paracentesis. She also complained of severe Right flank pain with cloudy urine and dysuria. In the ER she was noted to have a UA positive for evidence of Acute Cystitis; without hematuria complicated by CT evidence of a recently passed Right ureteral stone with mild Right hydroureteronephrosis extending to the distal UVJ without evidence of ureteral stone with recommendation to correlate for a recently passed stone compounded by laboratory evidence of moderate thrombocytopenia of 59K present on admission with clinical evidence of worsening ascites and need for repeat paracentesis. [facility] Medical History Anxiety Depression Kidney stones Sleep apnea Complete edentulism, class III Alcohol abuse Chronic pain GERD (gastroesophageal reflux disease) Restless legs Hyperbilirubinemia Substance abuse Marijuana use MRSA infection History of renal disease Low iron Anemia Hepatitis Migraine headache Seizures History of diverticulitis COPD (chronic obstructive pulmonary disease) Smoker Obesity Thrombocytopenia Polysubstance abuse Cirrhosis of liver Anxiety and depression Home Medications ?Medication ?Instructions ?Recorded ?Last Taken ?Type gabapentin 100 mg capsule 100 mg PO Q12H nerve pain 07/20/23 Unknown History albuterol sulfate 90 mcg/actuation 2 puff inhalation Q4H PRN PRN 12/04/23 Unknown History aerosol inhaler (Ventolin HFA) shortness of breath or wheezing ascorbate calcium (vitamin C) 500 500 mg PO DAILY vitamin 12/04/23 Unknown History mg tablet ferrous sulfate 325 mg (65 mg 325 mg PO DAILY supplement 12/04/23 Unknown History iron) tablet (FeroSul) buspirone 10 mg tablet 10 mg PO 4X/DAY 04/11/24 Unknown History desvenlafaxine succinate 50 mg 50 mg PO DAILY 04/11/24 Unknown History tablet,extended release 24 hr melatonin 5 mg tablet 5 mg PO QHS 04/11/24 Unknown History topiramate 50 mg tablet 50 mg PO DAILY 04/11/24 Unknown History Allergy/AdvReac Type Severity Reaction Status Date / Time bupropion HCl (From Allergy SEIZURES Verified 04/11/24 17:20 Wellbutrin) codeine Allergy Rash Verified 04/11/24 17:20 Family History Mother Diabetes Father Cancer HX Throat CA. Surgical History History of abdominal paracentesis H/O tubal ligation History of liver biopsy Social History adopted: No household members: family housing: other number of children: 3 current occupational status: unemployed pets and animals: Yes history of recent travel: No sexually active: Yes Smoking Status: Current every day smoker tobacco type: cigarettes second hand exposure: Yes alcohol intake: current alcohol intake frequency: a few times a month substance use type: former substance user Date of last use: heroin, marijuana, heroin and methamphetamine seatbelt use: always do you feel safe at home: Yes ROS ROS Narrative Review of systems: Constitutional: Patient denies fever, chills or sweats. Eyes: Patient denies changes in vision or discharge from eyes. ENT: Patient denies runny nose, sore throat or ear pain. CV: Patient denies chest pain, heart racing or palpitations. GI: Patient admits to increasing abdominal girth with generalized TTP. : Patient admits to Right flank pain, dysuria and cloudy urine as per HPI. MSK: Patient denies arthralgias or myalgias. Skin: Patient has deep poole with mild jaundice. She denies rash or abscess. Psych: Patient denies symptoms related to uncontrolled depression or anxiety. Neuro: Patient denies headache, paresthesias or focal neurologic deficits. Allergic: Patient denies lip swelling, tongue swelling or urticaria. Endocrine: Patient denies polyuria, polydipsia or polyphagia. 14 point ROS otherwise negative except for positives noted above. Physical Exam Const alert, oriented x3 and no apparent distress General Appearance: cooperative, well kempt and well developed Orientation / Consciousness: awake, oriented to person, oriented to place and oriented to time HEENT normocephalic, head/scalp atraumatic and moist oral mucous membranes Eyes PERRL, EOMs intact bilaterally and conjunctivae normal Neck supple, no JVD, thyroid normal and no carotid bruits General: trachea midline Resp normal respiratory effort, no retractions, no use of accessory muscles and clear to auscultation bilaterally Auscultation: Negative for rales, rhonchi or wheezes Cardio regular rate, regular rhythm, S1 normal heart sound, S2 normal heart sound, no murmurs, no rub and no gallops GI normal to inspection, nondistended, normoactive bowel sounds, soft to palpation, non-tender and non-distended Extremity no clubbing, cyanosis or edema Skin no rashes or lesions noted General Skin Exam: no breakdown Neuro oriented x3, CN's II-XII intact bilaterally, moves all extremities, no focal motor deficits and no sensory deficits noted Sensorium / Orientation: awake and alert Speech: speech normal Psych affect normal Lab / Micro Data 04/12/24 07:10 04/12/24 07:10 Labs: Laboratory Results - last 24 hr 04/11/24 18:05: WBC 6.8, RBC 3.76 L, Hgb 11.1 L, Hct 32.6 L, MCV 86.7, MCH 29.5, MCHC 34.0, RDW Std Deviation 56.5 H, RDW Coeff of Katalina 17.8 H, Plt Count 59 L, MPV 11.8, Immature Gran % (Auto) 0.300, Neut % (Auto) 67.1, Lymph % (Auto) 21.1, Angelina % (Auto) 8.4, Eos % (Auto) 2.4, Baso % (Auto) 0.7, Absolute Neuts (auto) 4.5, Absolute Lymphs (auto) 1.43, Nucleated RBC % 0, PT 18.1 H, INR 1.5, Sodium 139, Potassium 3.8, Chloride 110 H, Carbon Dioxide 21.0, Anion Gap 8, BUN 11, Creatinine 0.77, Estim Creat Clear Calc 82.39, Est GFR (MDRD) Af Amer 101, Est GFR (MDRD) Non-Af 84, BUN/Creatinine Ratio 14.2, Glucose 93, Calcium 9.0, Total Bilirubin 2.10 H, Direct Bilirubin 0.88 H, AST 159 H, ALT 107 H, Alkaline Phosphatase 131 H, Total Protein 7.2, Albumin 2.6 L, Globulin 4.6 H, Lipase 49 04/11/24 18:51: Urine Opiates Screen NEGATIVE, Urine Methadone Screen NEGATIVE, Ur Barbiturates Screen NEGATIVE, Ur Phencyclidine Scrn NEGATIVE, Ur Amphetamines Screen NEGATIVE, MDMA (Ecstasy) Screen NEGATIVE, U Benzodiazepines Scrn NEGATIVE, Urine Cocaine Screen NEGATIVE, U Cannabinoids Screen POSITIVE H, Ur Drug Screen Comment 04/11/24 18:59: Urine Color Yellow, Urine Clarity Cloudy, Urine pH 7.0, Ur Specific [place] 1.010, Urine Protein 30 H, Urine Glucose (UA) Normal, Urine Ketones Negative, Urine Occult Blood 250 H, Urine Nitrite Negative, Urine Bilirubin Negative, Urine Urobilinogen Normal, Ur Leukocyte Esterase 500 H, Urine RBC 0 SEEN, Urine WBC >100 SEEN, Ur Squamous Epith Cells 0 SEEN, Urine Bacteria 0 SEEN, Urine Mucus 0 SEEN 04/12/24 00:45: Ethyl Alcohol < 3.0, Blood Type A POSITIVE, Antibody Screen NEGATIVE 04/12/24 07:10: WBC 5.3, RBC 3.50 L, Hgb 10.3 L, Hct 30.8 L, MCV 88.0, MCH 29.4, MCHC 33.4, RDW Std Deviation 58.2 H, RDW Coeff of Katalina 18.2 H, Plt Count 56 L, MPV 11.1, Immature Gran % (Auto) 0.400, Neut % (Auto) 58.3, Lymph % (Auto) 26.7, Angelina % (Auto) 9.6, Eos % (Auto) 4.2, Baso % (Auto) 0.8, Absolute Neuts (auto) 3.1, Absolute Lymphs (auto) 1.41, Nucleated RBC % 0, Sodium 141, Potassium 3.5, Chloride 113 H, Carbon Dioxide 23.0, Anion Gap 5, BUN 10, Creatinine 0.72, Estim Creat Clear Calc 87.80, Est GFR (MDRD) Af Amer 110, Est GFR (MDRD) Non-Af 91, BUN/Creatinine Ratio 13.9, Glucose 87, Calcium 8.6, Phosphorus 3.2, Magnesium 1.9, Total Bilirubin 1.50 H, AST 125 H, ALT 83 H, Alkaline Phosphatase 116, Total Protein 6.2 L, Albumin 2.5 L, Globulin 3.7, Albumin/Globulin Ratio 0.7 L, TSH 1.66 Imaging Radiology Impression Abdomen/Pelvis CT 04/11/24 19:07 IMPRESSION: Mild right hydronephrosis and hydroureter extending to the distal ureterovesical junction without evidence of ureteral stone. A 9 mm nonobstructive stone is seen within the right kidney. Correlate for history of a recently passed stone. Short interval follow-up ultrasound is recommended to assess for resolution. Correlate with urine for evidence of superimposed infection. Cirrhotic liver with large volume ascites and splenomegaly. Mild gallbladder wall thickening, commonly secondary to surrounding ascites. Gallbladder is mildly distended which may be secondary to fasting. Consider gallbladder ultrasound to better assess for cholelithiasis or gallbladder inflammation. Nonspecific short segment small bowel distention in the left upper abdomen, possibly be transient from peristalsis. Radiographic follow-up recommended to exclude developing obstruction. Electronically Signed: Abimael Ta MD at 20:33 EDT , Paracentesis Ultrasound 04/12/24 09:22 IMPRESSION: Attempted paracentesis. Not enough fluid. Electronically Signed: Isidro Burnett MD at 15:25 EDT , Assessment & Plan Assessment/Plan (1) Acute cystitis without hematuria: (2) Thrombocytopenia: (3) Ascites of liver: (4) Cirrhosis of liver: QUALIFIERS: Hepatic cirrhosis type: unspecified hepatic cirrhosis Ascites presence: with ascites Qualified Code(s): K74.60 - Unspecified cirrhosis of liver; R18.8 - Other ascites (5) Hepatitis C, chronic: QUALIFIERS: Hepatic coma status: without hepatic coma Qualified Code(s): B18.2 - Chronic viral hepatitis C (6) Iron deficiency anemia: QUALIFIERS: Iron deficiency anemia type: chronic blood loss Qualified Code(s): D50.0 - Iron deficiency anemia secondary to blood loss (chronic) (7) Polysubstance abuse: PLAN: Plan 48-year-old with decompensated cirrhosis. She has cirrhosis secondary to hepatitis C, IV drug abuse and alcohol. Clinical evidence of worsening ascites with need for repeat paracentesis compounding .Patient already given 25g IV Albumin once to fully prepare her for procedure. I will start her on Lasix 40 mg p.o. twice daily. She has not shown any signs of encephalopathy at this time. I will also start her on 50 mg of Aldactone twice a day. She underwent an attempted paracentesis but they were not able to get any fluid. After reviewing the CT scan I do see she has some fluid but it is in the pelvis and looks like it very difficult to get to. She also has some fluid on her left upper quadrant but her spleen is really big. I will talk with radiology to see if she can have another attempted paracentesis. Currently her weight is at 160. Hopefully we can get some of the fluid off her belly. Charges/Coding Visit Charges Inpatient E&M: 89824 Init Hosp L3
[2024-04-12] MEDS: Spironolactone 50 MG Tablet PO (21:09)
[2024-04-12] MEDS: Ceftriaxone 1 GM/50 ML BAG IV (21:10)
[2024-04-12] MEDS: Furosemide 40 MG/4 ML Vial IV (21:10)
[2024-04-12] MEDS: MELATONIN 10 MG TABLET 5 MG PO (21:10)
[2024-04-13 04:00] VITALS: BP 119/73; PULSE 65; RESP 16; TEMP 36.6; O2SAT 98
[2024-04-13] MEDS: Ondansetron 4 MG/2 ML Vial IV (05:34)
[2024-04-13 06:57] LABS: LDH 249 U/L (84-246)
[2024-04-13] MEDS: Pantoprazole Sodium 40 MG in 0.9% Normal Saline (100mL MB+) 100 ML 330 MG IV (08:34)
[2024-04-13] MEDS: 0.9% Saline Lock 10 ML Syringe IV ×2 (08:40→09:02)
[2024-04-13] MEDS: Gabapentin 100 MG Capsule PO (08:40)
[2024-04-13] MEDS: Ferrous Sulfate 325 MG Tablet PO (08:42)
[2024-04-13] MEDS: Spironolactone 50 MG Tablet PO (08:42)
[2024-04-13] MEDS: busPIRone 5 MG Tablet 10 MG PO (08:43)
[2024-04-13] MEDS: Ascorbic Acid 500 MG Tablet PO (08:43)
[2024-04-13] MEDS: Topiramate 50 MG Tablet PO (08:44)
[2024-04-13] MEDS: Venlafaxine XR 37.5 MG Capsule PO (08:44)
[2024-04-13] MEDS: Nalbuphine 10 MG/ML Ampul IV (08:55)
[2024-04-13 09:00] VITALS: BP 110/81; PULSE 61; RESP 20; TEMP 36.8; O2SAT 99
[2024-04-13] MEDS: Furosemide 40 MG/4 ML Vial IV (09:01)
--- NOTE | 2024-04-13 09:38 | DCINST_ITS ---
Discharge Instructions Diet Discharge Diet: No restrictions Activity Discharge Activity: Return to Normal Activity Weight Bearing Status: Full weight bearing Follow Up Care Test Results: Test results from this visit will be discussed in further detail at your follow- up appointment, if applicable. Discharge Plan Admission Admit Date/Time: 04/11/24 22:39 Primary Reason for Your Visit: urinary tract infection Attending Provider: Ang Shelton Primary Care Provider: Ang Acosta Consulting Providers: Oscar Robledo; José Porras Discharge Orders/Prescriptions Prescriptions: New spironolactone 50 mg Tablet 50 mg PO BID Qty: 60 1RF cefdinir 300 mg capsule 300 mg PO BID Qty: 14 0RF Rx Instructions: start on 04/13/24 furosemide [Lasix] 40 mg tablet 40 mg PO DAILY Qty: 30 0RF Rx Instructions: start on 04/14/24 Continued gabapentin 100 mg capsule 100 mg PO Q12H Patient Comments: Take 1 capsule by mouth twice daily pt taking as needed. albuterol sulfate [Ventolin HFA] 90 mcg/actuation HFA aerosol inhaler 2 puff inhalation Q4H PRN PRN (Reason: shortness of breath or wheezing) ferrous sulfate [FeroSul] 325 mg (65 mg iron) tablet 325 mg PO DAILY ascorbate calcium (vitamin C) 500 mg tablet 500 mg PO DAILY buspirone 10 mg tablet 10 mg PO 4X/DAY topiramate 50 mg tablet 50 mg PO DAILY desvenlafaxine succinate 50 mg tablet extended release 24 hr 50 mg PO DAILY melatonin 5 mg tablet 5 mg PO QHS Referrals / Follow Up: Ang Acosta MD [Primary Care Provider] - José Porras DO [Med Staff - Active Staff] - See Referral Note (in one month- call for appointment) Disposition Disposition (needs filled in before D/C Order can be placed): Home, Self Care
--- NOTE | 2024-04-13 09:59 | DS.PCM_ITS ---
Providers Date of Admission: 04/11/24 Date of Discharge: 04/13/24 Primary Care Physician: Dr. Ang Acosta MD Consultations 04/11/24 22:58 Consult: Gastroenterology Routine Consulting Provider: VernJosé Reason for Consult: Worsening Ascites with need for Paracentesis EMERGENT Consult: No MD Notified: Yes Date Notified: 04/12/24 Time Notified: 07:54 Method of Notification: Text Reason For Visit: ACUTE CYSTITIS WITHOUT HEMATURIA THROMBOCYTOPENIA Diagnosis Discharge Diagnosis (1) Acute cystitis without hematuria: Status: Acute Code(s): N30.00 - Acute cystitis without hematuria (2) Thrombocytopenia: Status: Acute Code(s): D69.6 - Thrombocytopenia, unspecified (3) Ascites of liver: Status: Acute Code(s): R18.8 - Other ascites (4) Cirrhosis of liver: Status: Chronic Code(s): K74.60 - Unspecified cirrhosis of liver Qualifiers: Ascites presence: with ascites Hepatic cirrhosis type: unspecified hepatic cirrhosis Qualified Code(s): K74.60 - Unspecified cirrhosis of liver; R18.8 - Other ascites (5) Hepatitis C, chronic: Status: Chronic Code(s): B18.2 - Chronic viral hepatitis C Qualifiers: Hepatic coma status: without hepatic coma Qualified Code(s): B18.2 - Chronic viral hepatitis C (6) Iron deficiency anemia: Status: Acute Code(s): D50.9 - Iron deficiency anemia, unspecified Qualifiers: Iron deficiency anemia type: chronic blood loss Qualified Code(s): D 50.0 - Iron deficiency anemia secondary to blood loss (chronic) (7) Polysubstance abuse: Status: Acute Code(s): F19.10 - Other psychoactive substance abuse, uncomplicated Plan 1. Acute cystitis-organism unknown at this time, I could not find a pending urine culture on this patient so I do not know if one was even collected. Patient will remain on IV Rocephin #2 ascites-not significant enough to perform paracentesis, patient will continue to follow-up with her GI physician #3 cirrhosis of the liver-secondary to past intake of alcohol-complicates care, management, recovery, and prognosis #4 elevated liver enzymes secondary to #3, not significant at this time Total clinical time spent by myself addressing the patient's medical issues, reviewing all of the data, and collaborating with patient's care team: 35 minutes Medications at Discharge Home Medications gabapentin 100 mg capsule 100 mg PO Q12H nerve pain 07/20/23 albuterol sulfate 90 mcg/actuation aerosol inhaler (Ventolin HFA) 2 puff inhalation Q4H PRN PRN shortness of breath or wheezing 12/04/23 ascorbate calcium (vitamin C) 500 mg tablet 500 mg PO DAILY vitamin 12/04/23 ferrous sulfate 325 mg (65 mg iron) tablet (FeroSul) 325 mg PO DAILY supplement 12/04/23 buspirone 10 mg tablet 10 mg PO 4X/DAY 04/11/24 desvenlafaxine succinate 50 mg tablet,extended release 24 hr 50 mg PO DAILY 04/11/24 melatonin 5 mg tablet 5 mg PO QHS 04/11/24 topiramate 50 mg tablet 50 mg PO DAILY 04/11/24 cefdinir 300 mg capsule 300 mg PO BID #14 caps 04/13/24 furosemide 40 mg tablet (Lasix) 40 mg PO DAILY #30 tabs 04/13/24 spironolactone 50 mg tablet 50 mg PO BID #60 tabs 04/13/24 Hospital Course Operations None Procedures None Summary of Care Provided Minutes Spent on Discharge: 31 Hospital Course: This 48-year-old white female was seen in the emergency room at [facility] with complaints of worsening abdominal distention and generalized edema. Patient had underwent a paracentesis before for cirrhotic liver disease, labs obtained in the emergency room showed a normal white blood cell count, hemoglobin was 11.1, chemistry profile showed elevated bilirubin at 2.1, AST was 159 and ALT was 107, alkaline phosphatase was 131. Patient's urinalysis showed over 100 white blood cells with 500 leukocyte esterase and 0 bacteria. Abdomen and pelvic CT showed mild right hydronephrosis and hydroureter extending to the distal ureterovesical junction without evidence of stone. There is a 9 mm nonobstructive stone seen in the right kidney, there was questionable evidence for a recently passed kidney stone. Cirrhotic liver with large amount of ascites splenomegaly was noted, patient had mild gallbladder wall thickening. Patient was admitted to [place] [address] for acute cystitis, placed on IV antibiotics and was scheduled for a paracentesis but upon ultrasound scanning, there was not enough fluid to remove with paracentesis. Patient was seen in consultation by gastroenterology and her medications were adjusted. On 04/13/2024, patient was seen and examined: On examination she appeared in good health and spirits, she does not appear to be in any distress. Vital signs as documented. Skin warm and dry and without overt rashes. Neck without JVD, thyroid appears normal, trachea is midline, neck is supple. Lungs clear, normal air movement was noted. Heart exam notable for regular rhythm, normal sounds and absence of murmurs, rubs or gallops. Abdomen unremarkable and without evidence of organomegaly, masses, or abdominal aortic enlargement, bowel sounds are present in all 4 quadrants, no abdominal tenderness was noted. Extremities nonedematous, no cyanosis was noted, no clubbing was noted. Neuro: Cranial nerves II through XII are grossly intact, no focal motor deficits were noted, sensation to light touch and pinprick is intact, motor exam 5/5 throughout. Psych: Patient is alert and oriented x3, she does not appear anxious or depressed, she does not appear agitated. Patient was felt to be in stable condition for discharge on 04/13/2024. Weight / BMI Weight Weight: 74 kg Body Mass Index (BMI) 30.0 ABG / Lab / Microbiology Data 04/12/24 07:10 04/12/24 07:10 Laboratory: Laboratory Results - last 24 hr 04/13/24 05:30: Lactate Dehydrogenase 249 H Radiography Diagnostic Testing: Radiology Impression Paracentesis Ultrasound 04/12/24 09:22 IMPRESSION: Attempted paracentesis. Not enough fluid. Electronically Signed: Isidro Burnett MD at 15:25 EDT , D/C Instructions Discharge Diet: No restrictions Weight Bearing Status: Full weight bearing Meaningful Use Info Meaningful Use Meaningful Use Diagnoses (Choose all that apply): None applicable Ischemic Stroke Statin Dosing Therapy Reference: STATIN DOSE THERAPY REFERENCE: * Patients > 75 years receive moderate or high dose statin therapy. * Patients 75 years or YOUNGER should receive HIGH intensity statin dose unless contraindicated. You will be required to document reason for non-treatment if statin daily dose does not meet guidelines. HIGH DOSE STATIN THERAPY DAILY Atorvastatin > than or = to 40 mg Rosuvastatin > than or = to 20 mg Amlodipine + Atorvastatin > than or = to 2.5/40 mg Ezetimibe + Simvastatin 10/80 mg Simvastatin 80mg Discharge Plan Admission Admit Date/Time: 04/11/24 22:39 Primary Reason for Your Visit: urinary tract infection Attending Provider: Ang Shelton Primary Care Provider: Ang Acosta Consulting Providers: Oscar Robledo; José Porras Discharge Orders/Prescriptions Prescriptions: New spironolactone 50 mg Tablet 50 mg PO BID Qty: 60 1RF cefdinir 300 mg capsule 300 mg PO BID Qty: 14 0RF Rx Instructions: start on 04/13/24 furosemide [Lasix] 40 mg tablet 40 mg PO DAILY Qty: 30 0RF Rx Instructions: start on 04/14/24 Continued gabapentin 100 mg capsule 100 mg PO Q12H Patient Comments: Take 1 capsule by mouth twice daily pt taking as needed. albuterol sulfate [Ventolin HFA] 90 mcg/actuation HFA aerosol inhaler 2 puff inhalation Q4H PRN PRN (Reason: shortness of breath or wheezing) ferrous sulfate [FeroSul] 325 mg (65 mg iron) tablet 325 mg PO DAILY ascorbate calcium (vitamin C) 500 mg tablet 500 mg PO DAILY buspirone 10 mg tablet 10 mg PO 4X/DAY topiramate 50 mg tablet 50 mg PO DAILY desvenlafaxine succinate 50 mg tablet extended release 24 hr 50 mg PO DAILY melatonin 5 mg tablet 5 mg PO QHS Referrals / Follow Up: Ang Acosta MD [Primary Care Provider] - José Porras DO [Med Staff - Active Staff] - 06/22/24 2:30 pm () Disposition Disposition (needs filled in before D/C Order can be placed): Home, Self Care Charges/Coding Visit Charges Inpatient E&M: 31177 Disch Hosp >30min
--- NOTE | 2024-04-13 10:07 | CASEMGMT ---
Order for DC placed. NASH CM to pt room at this time. Pt states that she still plans to DC to her daughters home. Pt states that she does not want or require additional resources or therapy at this time. Pt denies the need for HHC or OP Tx of any sort. Pt states that she feels safe discharging to her daughters home today without any additional needs. Pt denies any further questions or concerns.
--- NOTE | 2024-04-13 10:32 | PHA.DC_ITS ---
Pharmacy [facility] has performed discharge medication reconciliation and counseling for this patient. The patient's discharge medication list was reviewed for discrepancies and discrepancies were resolved. The patient was counseled on the following discharge medications and changes in medications for homegoing were reviewed. The Reason for Use, instructions for use, and potential side effects were reviewed for all new medications. The patient's questions regarding all of their medications were answered. 1. Cefdinir 300 mg PO BID 2. Furosemide 40 mg PO daily 3. Spironolactone 50 mg PO BID The patient was able to verbally demonstrate an understanding of their discharge medications. The patient was counselled on new medications by student career development specialist Raz. Medications at Discharge Home Medications gabapentin 100 mg capsule 100 mg PO Q12H nerve pain 07/20/23 albuterol sulfate 90 mcg/actuation aerosol inhaler (Ventolin HFA) 2 puff inhalation Q4H PRN PRN shortness of breath or wheezing 12/04/23 ascorbate calcium (vitamin C) 500 mg tablet 500 mg PO DAILY vitamin 12/04/23 ferrous sulfate 325 mg (65 mg iron) tablet (FeroSul) 325 mg PO DAILY supplement 12/04/23 buspirone 10 mg tablet 10 mg PO 4X/DAY 04/11/24 desvenlafaxine succinate 50 mg tablet,extended release 24 hr 50 mg PO DAILY 04/11/24 melatonin 5 mg tablet 5 mg PO QHS 04/11/24 topiramate 50 mg tablet 50 mg PO DAILY 04/11/24 cefdinir 300 mg capsule 300 mg PO BID #14 caps 04/13/24 furosemide 40 mg tablet (Lasix) 40 mg PO DAILY #30 tabs 04/13/24 spironolactone 50 mg tablet 50 mg PO BID #60 tabs 04/13/24
[2024-04-16 15:08] LABS: AFP, Tumor Marker 11.9 ng/mL (0.0-6.4); Alpha-1-Globulins 0.3 g/dL (0.0-0.4); Alpha-2-Globulins 0.4 g/dL (0.4-1.0); Deamidated Gliadin IgA 4 units (0-19); Deamidated Gliadin IgG 2 units (0-19); Endomysial Antibody IgA Negative (Negative); Gamma Globulin 2.3 g/dL (0.4-1.8); Immunoglobulin A 365 mg/dL (87-352); Immunoglobulin G 2324 mg/dL (586-1602); Immunoglobulin M 172 mg/dL (26-217); PROEL- TOTAL PROTEIN 6.6 g/dL (6.0-8.5); t-Transglutaminase IgA <2 U/mL (0-3)
== END 2024-04-13 11:24 | disposition home or self-care (01) | DRG 463 ==
LOC: ED 17:59 → MS3 23:27
PROVIDERS: Internal Medicine Gastroenterology; Admitting Provider Internal Medicine; Emergency Provider Student in an Organized Health Care Education/Training Program; PCP Family Medicine; Visit Provider Internal Medicine
DX: N30.00 Acute cystitis without hematuria (principal); K70.31 Alcoholic cirrhosis of liver with ascites; B18.2 Chronic viral hepatitis C; E43 Unspecified severe protein-calorie malnutrition; D50.0 Iron deficiency anemia secondary to blood loss (chronic); F10.10 Alcohol abuse, uncomplicated; D69.59 Other secondary thrombocytopenia; F17.210 Nicotine dependence, cigarettes, uncomplicated; F41.8 Other specified anxiety disorders; Z68.29 Body mass index [BMI] 29.0-29.9, adult; Z79.899 Other long term (current) drug therapy
CPT/HCPCS: 99221 ×2; 36415; 49083; 74177; 80048; 80053; 80076; 80307; 81001; 82077; 82105; 82784; 83516; 83615; 83690; 83735; 84100; 84165; 84443; 85025; 85610; 86255; 86334; 86850; 86900; 86901; 94668; 96365; 96366; 96367; 96375; 96376; 97802; 99284; J7030; P9047; Q9967; A4216; G0378; J1940; J2405

== ENCOUNTER 2024-04-24 20:32 | Emergency (ER) | payer MEDICAID, SELFPAY ==
[2024-04-24 20:32] VITALS: BP 136/90; PULSE 82; RESP 17; TEMP 36; O2SAT 100; BMI 28.0
[2024-04-24 20:34] VITALS: BP 136/90; PULSE 82; RESP 17; TEMP 36; O2SAT 100
[2024-04-24 22:16] LABS: Color, Urine Yellow (Yellow); Glucose, Dipstick Normal (Normal); Ketone-Dipstick 5 mg/dl (Negative); Leukocyte Esterase-Dipstick 500 /ul (Negative); Nitrite-Dipstick Positive (Negative); Occult Blood-Urine 250 /ul (Negative); Protein-Dipstick 100 mg/dl (Negative); Urine Clarity Clear (Clear); Urine Urobilinogen 4 mg/dl (Normal)
[2024-04-24 22:24] LABS: ALB/GLOB Ratio 0.7 RATIO (0.9-2.4); AST(SGOT) 180 U/L (15-37); Alanine Aminotransfer ALT/SGPT 114 U/L (13-56); Alkaline Phosphatase 134 U/L (45-117); Anion Gap 7 (5-15); BUN 15 mg/dL (7-18); BUN/Creat Ratio 13.3 RATIO (10-20); Chloride 110 mmol/L (98-107); Creatinine, Serum 1.13 mg/dL (0.55-1.02); EST Glomerular Filtration Rate 54 mL/min (>60); Est Glom Filt Rate - Afr Amer 65 mL/min (>60); Estimated Creatinine Clearance 54.48 ml/min; Globulin 4.5 g/dL (2.2-4.2); Glucose 98 mg/dL (74-106); Potassium 3.1 mmol/L (3.5-5.1); Protein, Total 7.5 g/dL (6.4-8.2); Sodium Level 140 mmol/L (136-145)
[2024-04-24 22:25] LABS: Urine Bilirubin Dipstick 1 mg/dL (Negative)
[2024-04-24 22:28] LABS: Bacteria 2+ /hpf (None Seen)
[2024-04-24 22:30] LABS: Red Blood Cells-Urine 50-100 SEEN /hpf (0-5); White Blood Cells >100 SEEN /hpf (0-5); Yeast-Urine 3+ /hpf (None Seen)
[2024-04-24 22:31] LABS: Hyaline Cast 0 SEEN /lpf (0-5); Mucous, Urine 1+ /hpf (<or=2+); Squamous Epithelial Cells - UA 0-5 SEEN /hpf (5-10)
[2024-04-24] MEDS: Acetaminophen 325 MG Tablet 650 MG PO (22:56)
--- NOTE | 2024-04-24 23:24 | EDS_ITS ---
HPI History of Present Illness Chief Complaint: Shortness of Breath Detail of Chief Complaint: Chief complaint is shortness of breath. Patient's complaint to me is swell Informant: patient Onset/Context/Timing Onset: Yesterday (With respect to the flank pain) and Days (With respect to the pedal edema) Context: Gradual Onset Quality: Pain Location: Right flank Current Severity: Mild Maximum Severity: Moderate Worsened by: Movement Relieved by: Nothing Associated Symptoms Associated Symptoms: Suprapubic pressure and frequency Narrative Narrative: Patient is a 48-year-old woman. She has history of cirrhosis of the liver. There is a history of ascites. She denies fever, chills night sweats. She denies cough, dyspnea on exertion, orthopnea or PND. She denies chest discomfort. She denies upper abdominal discomfort. She does endorse pressure sensation in the suprapubic area. She denies history of renal or ureterolithiasis. She denies vaginal bleeding. She denies vaginal discharge. She denies skin lesions. Prior similar symptoms: No Recent Illness/Hospitalization: Yes (Per old records she was seen for acute cystitis April 11.) [facility] Medical History Bipolar disorder Anxiety Depression Kidney stones Sleep apnea Complete edentulism, class III Alcohol abuse Chronic pain GERD (gastroesophageal reflux disease) Restless legs Iron deficiency anemia Hyperbilirubinemia Substance abuse Marijuana use MRSA infection History of renal disease Low iron Anemia Hepatitis Migraine headache Seizures History of diverticulitis COPD (chronic obstructive pulmonary disease) Smoker Obesity Thrombocytopenia Polysubstance abuse Cirrhosis of liver Anxiety and depression Hepatitis C, chronic Home Medications ?Medication ?Instructions ?Recorded ?Last Taken ?Type gabapentin 100 mg capsule 100 mg PO Q12H nerve pain 07/20/23 Unknown History albuterol sulfate 90 mcg/actuation 2 puff inhalation Q4H PRN PRN 12/04/23 Unknown History aerosol inhaler (Ventolin HFA) shortness of breath or wheezing ascorbate calcium (vitamin C) 500 500 mg PO DAILY vitamin 12/04/23 Unknown History mg tablet ferrous sulfate 325 mg (65 mg 325 mg PO DAILY supplement 12/04/23 Unknown History iron) tablet (FeroSul) buspirone 10 mg tablet 10 mg PO 4X/DAY 04/11/24 Unknown History desvenlafaxine succinate 50 mg 50 mg PO DAILY 04/11/24 Unknown History tablet,extended release 24 hr melatonin 5 mg tablet 5 mg PO QHS 04/11/24 Unknown History topiramate 50 mg tablet 50 mg PO DAILY 04/11/24 Unknown History cefdinir 300 mg capsule 300 mg PO BID #14 caps 04/13/24 Unknown Rx furosemide 40 mg tablet (Lasix) 40 mg PO DAILY #30 tabs 04/13/24 Unknown Rx spironolactone 50 mg tablet 50 mg PO BID #60 tabs 04/13/24 Unknown Rx cephalexin 500 mg capsule 500 mg PO Q6 #40 CAPSULES 04/24/24 Unknown Rx Allergy/AdvReac Type Severity Reaction Status Date / Time bupropion HCl (From Allergy SEIZURES Verified 04/24/24 20:32 Wellbutrin) codeine Allergy Rash Verified 04/24/24 20:32 Family History Mother Diabetes Father Cancer HX Throat CA. Surgical History History of abdominal paracentesis H/O tubal ligation History of liver biopsy Social History adopted: No household members: family housing: other number of children: 3 current occupational status: unemployed pets and animals: Yes history of recent travel: No sexually active: Yes Smoking Status: Current every day smoker tobacco type: cigarettes second hand exposure: Yes alcohol intake: current alcohol intake frequency: a few times a month substance use type: former substance user Date of last use: heroin, marijuana, heroin and methamphetamine seatbelt use: always do you feel safe at home: Yes ROS ROS ED Constitutional Constitutional ED: Denies chills, fever(s), subjective or sweats Eyes Eyes: Denies blurry vision or change in vision ENT ENT ED: Denies rhinorrhea or sore throat Cardiovascular Cardiovascular: Denies chest pain, orthopnea, palpitations or paroxysmal nocturnal dyspnea Respiratory/Chest Respiratory/Chest: Reports cough; Denies dyspnea, dyspnea on exertion, orthopnea, paroxysmal nocturnal dyspnea or sputum Gastrointestinal Gastrointestinal: Denies abdominal pain, nausea or vomiting Genitourinary Genitourinary ED: Reports urinary frequency and other Details: Suprapubic pressure. And right flank pain. ; Denies dysuria or hematuria Musculoskeletal Musculoskeletal: Denies arthralgias or myalgias Integumentary Reports other Details: Patient has numerous tattoos. ; Denies rash Neurologic Neurologic: Denies headache(s) or paresthesias Hematologic/Lymphatic Hematologic/Lymphatic: Reports systems reviewed and no addt'l complaints, except as documented EXAM Physical Exam Const Vital Signs: 04/24/24 20:32 04/24/24 20:34 04/24/24 21:34 Temperature 96.8 F L 96.8 F L Temperature Source Temporal Temporal Pulse Rate 82 82 Respiratory Rate 17 17 Respiratory Effort Non-Labored Respiratory Depth Normal Respiratory Pattern Normal Blood Pressure 136/90 H 136/90 H Blood Pressure Mean 105 105 Pulse Ox 100 100 Oxygen Delivery Method Room Air Room Air Room Air Positive well nourished, well developed and unkempt General Appearance ED: unkempt, well developed and NAD; Negative for cyanotic, diaphoretic or pallor HEENT Reports moist mucous membranes HEENT Narrative: Head is atraumatic and normocephalic. Ears normal. Nares patent. Posterior pharynx is normal. Eyes PERRL and EOMs intact bilaterally General Eye ED: Negative for pale conjunctiva or scleral icterus Neck no lymphadenopathy, supple and no JVD Resp normal respiratory effort and clear to auscultation bilaterally Cardio regular rate, regular rhythm, S1 normal heart sound, S2 normal heart sound and no murmurs GI normal to inspection, nondistended, normoactive bowel sounds, non-distended and no masses; Negative for non-tender or hepatosplenomegaly Palpation: tender suprapubic Back/Spine General Back: CVA tenderness right Cervical Spine: Negative for cervical spine tenderness Thoracic Spine / Upper Back: Negative for thoracic spinal tenderness Lumbar Spine / Lower Back: Negative for lumbar spinal tenderness Extremity normal to inspection Extremity Narrative: Minimal pedal edema. General Extremety ED: Yes edema; Negative for tenderness General Extremity: edema Neuro oriented x3, CN's II-XII intact bilaterally and no sensory deficits noted Sensorium / Orientation: alert Psych mental status grossly normal Appearance: unkempt Skin no wounds and skin turgor normal General Skin Exam: elasticity normal; Negative for jaundice or pallor MDM MDM MDM Narrative Medical decision making narrative: Concern patient has recurrent urinary tract infection. Will obtain UA, comprehensive metabolic panel. Lab Data Attestation: I reviewed the patient's lab results. Lab results narrative: UA is consistent with infection. Patient has 50-200 RBCs with greater than 100 WBCs 0 epithelial cells and 2+ bacteria. Will send culture. Patient was treated with Rocephin in the emergency department and discharged with prescription for cephalexin. Patient's total bili ALT and AST are elevated which they have been in the past. Labs: Laboratory Results - last 24 hr 04/24/24 04/24/24 21:49 22:09 Sodium 140 Potassium 3.1 L Chloride 110 H Carbon Dioxide 23.0 Anion Gap 7 BUN 15 Creatinine 1.13 H Estim Creat Clear Calc 54.48 Est GFR (MDRD) Af Amer 65 Est GFR (MDRD) Non-Af 54 L BUN/Creatinine Ratio 13.3 Glucose 98 Calcium 9.0 Total Bilirubin 2.80 H AST 180 H ALT 114 H Alkaline Phosphatase 134 H Total Protein 7.5 Albumin 3.0 L Globulin 4.5 H Albumin/Globulin Ratio 0.7 L Urine Color Yellow Urine Clarity Clear Urine pH 6.0 Ur Specific [place] 1.020 Urine Protein 100 H Urine Glucose (UA) Normal Urine Ketones 5 H Urine Occult Blood 250 H Urine Nitrite Positive H Urine Bilirubin 1 H Urine Urobilinogen 4 H Ur Leukocyte Esterase 500 H Urine RBC 50-100 SEEN Urine WBC >100 SEEN Ur Squamous Epith Cells 0-5 SEEN Urine Bacteria 2+ Hyaline Casts 0 SEEN Urine Mucus 1+ Urine Yeast 3+ Discharge Plan Triage Chief Complaint: Shortness of Breath ED Provider: Shon Quintero Dx/Rx/DC Orders Clinical Impression: Acute pyelonephritis due to bacteria, Cirrhosis of liver, Elevated bilirubin Instructions: ED Pyelonephritis, Female (Adult) Prescriptions: New cephalexin 500 mg capsule 500 mg PO Q6 Qty: 40 0RF No Action gabapentin 100 mg capsule 100 mg PO Q12H Patient Comments: Take 1 capsule by mouth twice daily pt taking as needed. albuterol sulfate [Ventolin HFA] 90 mcg/actuation HFA aerosol inhaler 2 puff inhalation Q4H PRN PRN (Reason: shortness of breath or wheezing) ferrous sulfate [FeroSul] 325 mg (65 mg iron) tablet 325 mg PO DAILY ascorbate calcium (vitamin C) 500 mg tablet 500 mg PO DAILY buspirone 10 mg tablet 10 mg PO 4X/DAY topiramate 50 mg tablet 50 mg PO DAILY desvenlafaxine succinate 50 mg tablet extended release 24 hr 50 mg PO DAILY melatonin 5 mg tablet 5 mg PO QHS spironolactone 50 mg Tablet 50 mg PO BID Qty: 60 1RF cefdinir 300 mg capsule 300 mg PO BID Qty: 14 0RF Rx Instructions: start on 04/13/24 furosemide [Lasix] 40 mg tablet 40 mg PO DAILY Qty: 30 0RF Rx Instructions: start on 04/14/24 Primary Care Provider: Ang Acosta Referrals: Ang Acosta MD [Primary Care Provider] - 1-2 Days if not improving Print Language: Frisian Disposition Disposition: Home, Self Care
[2024-04-24] MEDS: Ceftriaxone 1 GM/50 ML BAG IV (23:34)
--- NOTE | 2024-04-24 23:49 | ED.RN ---
Pt angry with this RN for not giving her pain medication. RN explained she had received Tylenol earlier, but would inform Dr. Quintero pt was still having pain. Pt stated, Tylenol? That's bullshit Pt then stated she did not want this RN to inform Dr. Quintero about pt pain because He is really mean Primary RN, Jeannette RN notified of pt pain level.
--- NOTE | 2024-04-25 00:07 | ED.RN ---
Refused vitals, told this nurse to fuck off and left.
== END 2024-04-25 00:08 | disposition home or self-care (01) ==
PROVIDERS: Emergency Provider Emergency Medicine; PCP Family Medicine; Visit Provider Emergency Medicine
DX: N10 Acute pyelonephritis (principal); K74.60 Unspecified cirrhosis of liver; F31.9 Bipolar disorder, unspecified; J44.9 Chronic obstructive pulmonary disease, unspecified; F11.90 Opioid use, unspecified, uncomplicated; F17.200 Nicotine dependence, unspecified, uncomplicated; F12.90 Cannabis use, unspecified, uncomplicated; D50.9 Iron deficiency anemia, unspecified; Z98.51 Tubal ligation status
CPT/HCPCS: 80053; 81001; 87077; 87086; 87088; 87186; 96365; 99283

== ENCOUNTER 2024-05-11 11:13 | Emergency (ER) | payer MEDICAID, SELFPAY ==
[2024-05-11 11:13] VITALS: BP 134/99; PULSE 64; RESP 14; TEMP 36.6; O2SAT 100; BMI 28.3
--- NOTE | 2024-05-11 11:57 | EX.ED.DYSGE1 ---
HPI History of Present Illness Chief Complaint: Abd Pain Informant: patient Narrative Narrative: Patient presenting to the emergency room for abdominal pain. Patient is an exceedingly poor historian who is yelling at me for not being able to provide her within the first 2 minutes of the history a reason for why she has come to the emergency department. From what I can gather she was at some point admitted into the hospital for possibly a UTI and kidney stone. She states that she was recently started on an antibiotic but she does not know which one or when. She states she has been seeing the [facility] who just wants to order a bunch of test and not tell me anything. She states that on Tuesday she began to have diarrhea and pain with eating and then develops hunger pains that is worse than the pain that she gets with eating. She states that the [facility] took 20 vials of blood and has told her nothing. She states that they wanted to do a CAT scan but she cannot keep going back to them for appointments because she has things she needs to get done. She states that she came to emergency because we can just do it all. Despite the patient's excruciating pain I needed to wake her up from sleep. She gets mad stating that she is sorry that she is not bent over screaming in pain. 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 In December 2023 the patient underwent EGD which showed: Grade II esophageal varices. Portal hypertensive gastropathy. Biopsied. A large amount of a phytobezoar in the stomach. Gastric stenosis was found at the pylorus.Dilated. Retained food in the duodenum. [facility] Medical History Bipolar disorder Anxiety Depression Kidney stones Sleep apnea Complete edentulism, class III Alcohol abuse Chronic pain GERD (gastroesophageal reflux disease) Restless legs Iron deficiency anemia Hyperbilirubinemia Substance abuse Marijuana use MRSA infection History of renal disease Low iron Anemia Hepatitis Migraine headache Seizures History of diverticulitis COPD (chronic obstructive pulmonary disease) Smoker Obesity Thrombocytopenia Polysubstance abuse Cirrhosis of liver Anxiety and depression Hepatitis C, chronic Home Medications ?Medication ?Instructions ?Recorded ?Last Taken ?Type gabapentin 100 mg capsule 100 mg PO Q12H nerve pain 07/20/23 Unknown History albuterol sulfate 90 mcg/actuation 2 puff inhalation Q4H PRN PRN 12/04/23 Unknown History aerosol inhaler (Ventolin HFA) shortness of breath or wheezing ascorbate calcium (vitamin C) 500 500 mg PO DAILY vitamin 12/04/23 Unknown History mg tablet ferrous sulfate 325 mg (65 mg 325 mg PO DAILY supplement 12/04/23 Unknown History iron) tablet (FeroSul) buspirone 10 mg tablet 10 mg PO 4X/DAY 04/11/24 Unknown History desvenlafaxine succinate 50 mg 50 mg PO DAILY 04/11/24 Unknown History tablet,extended release 24 hr melatonin 5 mg tablet 5 mg PO QHS 04/11/24 Unknown History topiramate 50 mg tablet 50 mg PO DAILY 04/11/24 Unknown History cefdinir 300 mg capsule 300 mg PO BID #14 caps 04/13/24 Unknown Rx furosemide 40 mg tablet (Lasix) 40 mg PO DAILY #30 tabs 04/13/24 Unknown Rx spironolactone 50 mg tablet 50 mg PO BID #60 tabs 04/13/24 Unknown Rx cephalexin 500 mg capsule 500 mg PO Q6 #40 CAPSULES 04/24/24 Unknown Rx pantoprazole 40 mg tablet,delayed 40 mg PO DAILY #30 tabs 05/11/24 Unknown Rx release (Protonix) Allergy/AdvReac Type Severity Reaction Status Date / Time bupropion HCl (From Allergy SEIZURES Verified 05/11/24 11:13 Wellbutrin) codeine Allergy Rash Verified 05/11/24 11:13 Family History Mother Diabetes Father Cancer HX Throat CA. Surgical History History of abdominal paracentesis H/O tubal ligation History of liver biopsy Social History adopted: No household members: family housing: other number of children: 3 current occupational status: unemployed pets and animals: Yes history of recent travel: No sexually active: Yes Smoking Status: Current every day smoker tobacco type: cigarettes second hand exposure: Yes alcohol intake: current alcohol intake frequency: a few times a month substance use type: former substance user Date of last use: heroin, marijuana, heroin and methamphetamine seatbelt use: always do you feel safe at home: Yes ROS ROS ED Constitutional Constitutional ED: Denies chills, fever(s) or weight loss Eyes Eyes: Denies change in vision or diplopia ENT ENT ED: Denies ear pain, rhinorrhea or sore throat Cardiovascular Cardiovascular: Denies chest pain, orthopnea, palpitations or racing heartbeat Respiratory/Chest Respiratory/Chest: Denies cough, dyspnea or orthopnea Gastrointestinal Gastrointestinal: Reports abdominal pain, diarrhea and nausea; Denies vomiting Genitourinary Genitourinary ED: Denies dysuria, hematuria or urinary frequency Musculoskeletal Musculoskeletal: Denies arthralgias or myalgias Integumentary Denies abscess or rash Neurologic Neurologic: Denies headache(s) or weakness Psychiatric Psychiatric: Denies anxiety, depression, suicidal ideation or suicidal thoughts Endocrine Endocrinology: Denies polydipsia, polyphagia or polyuria Allergic/Immunologic Allergic/Immunologic ED: Denies mouth swelling, tongue swelling or urticaria EXAM Physical Exam Const Vital Signs: 05/11/24 11:13 05/11/24 13:13 Temperature 98 F Temperature Source Temporal Pulse Rate 64 73 Respiratory Rate 14 18 Blood Pressure 134/99 H 130/89 H Blood Pressure Mean 110 102 Pulse Ox 100 95 Oxygen Delivery Method Room Air Room Air Positive well nourished and well developed General Appearance ED: well developed HEENT Reports normocephalic, head/scalp atraumatic and moist mucous membranes Eyes PERRL and EOMs intact bilaterally Neck no lymphadenopathy, supple and no JVD Resp normal respiratory effort and clear to auscultation bilaterally Cardio regular rate, regular rhythm and no murmurs GI normal to inspection, nondistended, normoactive bowel sounds and non-tender Palpation: soft; Negative for tender, guarding or rebound tenderness present Back/Spine no CVA tenderness and normal ROM Extremity normal to inspection General Extremety ED: Negative for edema General Extremity: Negative for edema Neuro oriented x3 and CN's II-XII intact bilaterally Sensorium / Orientation: alert Motor Exam: strength 5/5 throughout Psych mental status grossly normal Mood & Affect: Negative for depressed or tearful Skin no rashes or lesions noted and no wounds MDM MDM MDM Narrative Medical decision making narrative: Differential diagnosis includes gastric ulcers, biliary colic pancreatitis bowel obstruction GERD gastric outlet obstruction gastroparesis Eventually I was able to learn more about her through reading the chart. The patient's blood work was obtained shows a white count 7.8 hemoglobin 12.3 platelet count of 69. She is chronically thrombocytopenic. AST and ALT 137 109 total bilirubin 2.4 with a direct bili 1.07. Lipase is 53. CT of the abdomen pelvis demonstrates ascites cirrhotic liver distended gallbladder. Splenomegaly is not new. She has a degree of hydronephrosis on the right which is also not new. She has an intrarenal stone. Patient received Protonix and a GI cocktail. Patient has been abusive to staff throughout her stay. She is often cursing at staff. Patient came here stating that we could do all of her testing in 1 spot which simply is not true as she probably needs to follow-up long-term flores with gastroenterology because of her cirrhosis and perhaps she is developing ulcer disease or needs a repeat EGD from her one earlier this year. She is a very poor historian so would be very important for her to have continuity of care rather than utilizing the ED for her follow-up. The patient has decided to leave the emergency department as I was walking back to give her her discharge papers. And as she was observed yelling at staff and calling them derogatory names. History & Record Review Discussion w/independent historian: Patient Additional record(s) reviewed:: Prior inpatient record, Prior outpatient record, Prior ED visit and Prior labs Lab Data Attestation: I reviewed the patient's lab results. Labs: Laboratory Results - last 24 hr 05/11/24 12:06 WBC 7.8 RBC 4.01 L Hgb 12.3 Hct 36.2 L MCV 90.3 MCH 30.7 MCHC 34.0 RDW Std Deviation 60.4 H RDW Coeff of [place] 18.7 H Plt Count 69 L MPV 11.8 Immature Gran % (Auto) 0.400 Neut % (Auto) 67.5 Lymph % (Auto) 19.8 [place] % (Auto) 7.5 Eos % (Auto) 4.0 Baso % (Auto) 0.8 Absolute Neuts (auto) 5.2 Absolute Lymphs (auto) 1.54 Nucleated RBC % 0 Sodium 139 Potassium 3.5 Chloride 113 H Carbon Dioxide 22.0 Anion Gap 4 L BUN 14 Creatinine 0.83 Estim Creat Clear Calc 74.43 Est GFR (MDRD) Af Amer 93 Est GFR (MDRD) Non-Af 77 BUN/Creatinine Ratio 16.8 Glucose 103 Calcium 9.2 Total Bilirubin 2.40 H Direct Bilirubin 1.07 H AST 137 H ALT 109 H Alkaline Phosphatase 128 H Total Protein 7.1 Albumin 2.7 L Globulin 4.4 H Lipase 53 Urine Color Yellow Urine Clarity Cloudy Urine pH 6.0 Ur Specific [place] 1.025 Urine Protein 100 H Urine Glucose (UA) Normal Urine Ketones 5 H Urine Occult Blood 250 H Urine Nitrite Positive H Urine Bilirubin Negative Urine Urobilinogen 4 H Ur Leukocyte Esterase 100 H Urine RBC > 100 SEEN Urine WBC 0 SEEN Ur Squamous Epith Cells 0 SEEN Calcium Oxalate Crystal 1+ Urine Bacteria 0 SEEN Urine Mucus 0 SEEN Radiography Diagnostic Testing: Clinical Impression(s) from Imaging Studies Abdomen/Pelvis CT 05/11/24 12:40 IMPRESSION: Cirrhotic changes of the liver. Moderate degree of splenomegaly. Diffuse ascites. Distended gallbladder. Nonobstructive calculi is in the posterior dependent portion of the right renal pelvis although there is evidence of right hydronephrosis. Electronically Signed: Isidro Burnett MD at 13:40 EDT , Discharge Plan Triage Chief Complaint: Abd Pain ED Provider: Tom Wong Dx/Rx/DC Orders Clinical Impression: Cirrhosis of liver, Abdominal pain Instructions: ED Cirrhosis Prescriptions: New pantoprazole [Protonix] 40 mg tablet,delayed release (DR/EC) 40 mg PO DAILY Qty: 30 0RF No Action gabapentin 100 mg capsule 100 mg PO Q12H Patient Comments: Take 1 capsule by mouth twice daily pt taking as needed. cephalexin 500 mg capsule 500 mg PO Q6 Qty: 40 0RF albuterol sulfate [Ventolin HFA] 90 mcg/actuation HFA aerosol inhaler 2 puff inhalation Q4H PRN PRN (Reason: shortness of breath or wheezing) ferrous sulfate [FeroSul] 325 mg (65 mg iron) tablet 325 mg PO DAILY ascorbate calcium (vitamin C) 500 mg tablet 500 mg PO DAILY buspirone 10 mg tablet 10 mg PO 4X/DAY topiramate 50 mg tablet 50 mg PO DAILY desvenlafaxine succinate 50 mg tablet extended release 24 hr 50 mg PO DAILY melatonin 5 mg tablet 5 mg PO QHS spironolactone 50 mg Tablet 50 mg PO BID Qty: 60 1RF cefdinir 300 mg capsule 300 mg PO BID Qty: 14 0RF Rx Instructions: start on 04/13/24 furosemide [Lasix] 40 mg tablet 40 mg PO DAILY Qty: 30 0RF Rx Instructions: start on 04/14/24 Primary Care Provider: Ang Acosta Referrals: Ang Acosta MD [Primary Care Provider] - Friend,DO José [Med Staff - Active Staff] - As soon as possible Print Language: Indonesian Disposition Disposition: Home, Self Care
[2024-05-11] MEDS: 0.9% Normal Saline (1000mL) 1,000 ML 999 ML IV (12:08)
[2024-05-11 12:13] LABS: Bacteria 0 SEEN /hpf (None Seen); Mucous, Urine 0 SEEN /hpf (<or=2+); Squamous Epithelial Cells - UA 0 SEEN /hpf (5-10); White Blood Cells 0 SEEN /hpf (0-5)
[2024-05-11 12:16] LABS: Color, Urine Yellow (Yellow); Glucose, Dipstick Normal (Normal); Ketone-Dipstick 5 mg/dl (Negative); Leukocyte Esterase-Dipstick 100 /ul (Negative); Nitrite-Dipstick Positive (Negative); Occult Blood-Urine 250 /ul (Negative); Protein-Dipstick 100 mg/dl (Negative); Specific Gravity, Urine 1.025 (1.002-1.030); Urine Bilirubin Dipstick Negative (Negative); Urine Clarity Cloudy (Clear); Urine Urobilinogen 4 mg/dl (Normal)
[2024-05-11 12:23] LABS: Absolute Lymphocyte Count 1.54 X10^3/uL (0.83-4.51); Absolute Neutrophil Count 5.2 X10^3/uL (2.0-7.7); Basophil# 0.06 X10^3/uL; Basophil% 0.8 % (0-1); Eosinophil# 0.31 X10^3/uL; Hematocrit 36.2 % (37-47); Hemoglobin 12.3 g/dL (12.0-15.0); Lymphocyte # 1.54 X10^3/ul (0.83-4.51); Lymphocyte % 19.8 % (19-41); Mean Corpuscular Hgb 30.7 pg (27.0-32.0); Mean Corpuscular Volume 90.3 fL (81-99); Mean Platelet Vol. 11.8 fl (6.2-12.0); Monocyte# 0.58 X10^3/uL; Monocyte% 7.5 % (0-10); NRBC Flagged by Analyzer 0 % (0-5); Neutrophil # 5.24 X10^3/uL (2.7-7.7); Neutrophil % 67.5 % (47-70); POSITIVE COUNT YES; Platelet Count 69 K/mm3 (150-450); RBC Distribution Width CV 18.7 % (11.6-14.6); RBC Distribution Width SD 60.4 fl (35.1-43.9); Red Blood Count 4.01 M/mm3 (4.2-5.4); White Blood Count 7.8 K/mm3 (4.4-11.0)
[2024-05-11 12:26] LABS: Calcium Oxalate Crystals Ur 1+ /hpf (<or=2+); Red Blood Cells-Urine > 100 SEEN /hpf (0-5)
[2024-05-11 12:35] LABS: AST(SGOT) 137 U/L (15-37); Alanine Aminotransfer ALT/SGPT 109 U/L (13-56); Albumin, Serum 2.7 g/dL (3.2-5.0); Alkaline Phosphatase 128 U/L (45-117); Anion Gap 4 (5-15); BUN 14 mg/dL (7-18); BUN/Creat Ratio 16.8 RATIO (10-20); Bilirubin, Direct 1.07 mg/dL (0.00-0.30); Calcium,Total 9.2 mg/dL (8.5-10.1); Chloride 113 mmol/L (98-107); Creatinine, Serum 0.83 mg/dL (0.55-1.02); EST Glomerular Filtration Rate 77 mL/min (>60); Est Glom Filt Rate - Afr Amer 93 mL/min (>60); Estimated Creatinine Clearance 74.43 ml/min; Globulin 4.4 g/dL (2.2-4.2); Glucose 103 mg/dL (74-106); Lipase 53 U/L (13-75); Potassium 3.5 mmol/L (3.5-5.1); Protein, Total 7.1 g/dL (6.4-8.2); Sodium Level 139 mmol/L (136-145)
--- NOTE | 2024-05-11 12:40 | CT_ITS ---
STUDY: CT ABDOMEN AND PELVIS WITH CONTRAST REASON FOR EXAM: Female, 48 years old. Abdominal pain RADIATION DOSAGE (If Supplied By Facility): CTDIvol = ( 24.20 ) mGy, DLP = ( 615.35 ) mGycm TECHNIQUE: Transaxial images were obtained from the dome of the diaphragm to the symphysis pubis without oral contrast. IV 100mL Isovue-300 was administered. Sagittal and coronal images were reconstructed. Individualized dose optimization techniques were used for this CT. COMPARISON: Comparison is made with prior study April 11, 2024. FINDINGS: The visualized lung bases are unremarkable. The visualized portions of the heart are within normal limits. Diffuse ascites. There is a diffuse contour abnormality of the liver consistent with cirrhotic changes. The gallbladder is distended. Mild degree of bladder wall thickening. There is moderate splenomegaly. Calcifications are seen in the head of the pancreas suggestive of chronic pancreatitis. Normal bilateral adrenal glands. There is a 9.5 mm calculus in the posterior aspect of the right renal pelvis. Moderate right hydronephrosis. Normal left kidney. Normal visualized stomach. Normal small intestine. Normal colon. The appendix is visualized and appears normal. Normal abdominal aorta. Normal inferior vena cava. Normal retroperitoneum. Normal urinary bladder. There is evidence of bilateral tubal ligation clips. Normal abdominal wall. Normal osseous structures. CT/Abdomen/Pelvis W IV Cont ONLY IMPRESSION: Cirrhotic changes of the liver. Moderate degree of splenomegaly. Diffuse ascites. Distended gallbladder. Nonobstructive calculi is in the posterior dependent portion of the right renal pelvis although there is evidence of right hydronephrosis. Electronically Signed: Isidro Burnett MD at 13:40 EDT ,
[2024-05-11] MEDS: Ondansetron 4 MG/2 ML Vial IV (12:47)
[2024-05-11] MEDS: Lidocaine 2% Viscous15 ML UDC 15 ML PO (12:48)
[2024-05-11] MEDS: Mag /Aluminum/Simeth WCH UDC 30 ML ORAL.SUSP PO (12:48)
[2024-05-11] MEDS: Pantoprazole Sodium 40 MG in 0.9% Normal Saline (100mL MB+) 100 ML 330 MG IV (13:10)
[2024-05-11 13:13] VITALS: BP 130/89; PULSE 73; RESP 18; O2SAT 95
--- NOTE | 2024-05-11 15:05 | ED.RN ---
Nurse answered call light. Patient requesting to leave you are fucking doing anything. Nurse attempted to educate on test and medications completed however patient kept interrupting. IV removed. Doctor updated.
== END 2024-05-11 15:08 | disposition home or self-care (01) ==
PROVIDERS: Emergency Provider Emergency Medicine; PCP Family Medicine; Visit Provider Emergency Medicine
DX: K74.60 Unspecified cirrhosis of liver (principal); J44.9 Chronic obstructive pulmonary disease, unspecified; F17.210 Nicotine dependence, cigarettes, uncomplicated; K21.9 Gastro-esophageal reflux disease without esophagitis; Z79.899 Other long term (current) drug therapy; R19.7 Diarrhea, unspecified; R11.0 Nausea; N13.2 Hydronephrosis with renal and ureteral calculous obstruction; R10.9 Unspecified abdominal pain
CPT/HCPCS: 74177; 80048; 80076; 81001; 83690; 85025; 99283; A4216; J2405; J7030; Q9967

== ENCOUNTER 2024-05-13 08:58 | Inpatient (IN) | payer MEDICAID, SELFPAY ==
[2024-05-13 08:59] VITALS: BP 178/99; PULSE 60; RESP 19; TEMP 35.9; O2SAT 100; BMI 29.9
[2024-05-13 09:40] LABS: Absolute Lymphocyte Count 1.53 X10^3/uL (0.83-4.51); Absolute Neutrophil Count 4.9 X10^3/uL (2.0-7.7); Basophil# 0.04 X10^3/uL; Basophil% 0.5 % (0-1); Eosinophil# 0.27 X10^3/uL; Eosinophils% 3.6 % (0-5); Hematocrit 36.5 % (37-47); Hemoglobin 12.7 g/dL (12.0-15.0); Lymphocyte # 1.53 X10^3/ul (0.83-4.51); Lymphocyte % 20.7 % (19-41); Mean Corp Hgb Conc 34.8 g/dL (32-36); Mean Corpuscular Hgb 31.1 pg (27.0-32.0); Mean Corpuscular Volume 89.5 fL (81-99); Mean Platelet Vol. 11.6 fl (6.2-12.0); Monocyte# 0.64 X10^3/uL; Monocyte% 8.6 % (0-10); NRBC Flagged by Analyzer 0 % (0-5); Neutrophil % 66.3 % (47-70); POSITIVE COUNT YES; Platelet Count 60 K/mm3 (150-450); RBC Distribution Width CV 18.6 % (11.6-14.6); RBC Distribution Width SD 59.9 fl (35.1-43.9); Red Blood Count 4.08 M/mm3 (4.2-5.4); White Blood Count 7.4 K/mm3 (4.4-11.0)
[2024-05-13 09:47] LABS: Bacteria 0 SEEN /hpf (None Seen); Color, Urine Brown (Yellow); Glucose, Dipstick Normal (Normal); Ketone-Dipstick Negative (Negative); Leukocyte Esterase-Dipstick 500 /ul (Negative); Mucous, Urine 0 SEEN /hpf (<or=2+); Nitrite-Dipstick Negative (Negative); Occult Blood-Urine 250 /ul (Negative); Protein-Dipstick 100 mg/dl (Negative); Urine Bilirubin Dipstick 1 mg/dL (Negative); Urine Clarity Cloudy (Clear); Urine Urobilinogen 1 mg/dl (Normal)
[2024-05-13 09:51] LABS: AST(SGOT) 147 U/L (15-37); Alanine Aminotransfer ALT/SGPT 112 U/L (13-56); Albumin, Serum 3.1 g/dL (3.2-5.0); Alkaline Phosphatase 138 U/L (45-117); Anion Gap 5 (5-15); BUN 15 mg/dL (7-18); BUN/Creat Ratio 15.7 RATIO (10-20); Bilirubin, Direct 1.03 mg/dL (0.00-0.30); Calcium,Total 8.7 mg/dL (8.5-10.1); Chloride 111 mmol/L (98-107); Creatinine, Serum 0.96 mg/dL (0.55-1.02); EST Glomerular Filtration Rate 66 mL/min (>60); Est Glom Filt Rate - Afr Amer 79 mL/min (>60); Estimated Creatinine Clearance 66.18 ml/min; Globulin 4.3 g/dL (2.2-4.2); Glucose 130 mg/dL (74-106); Lipase 63 U/L (13-75); Potassium 3.1 mmol/L (3.5-5.1); Protein, Total 7.4 g/dL (6.4-8.2); Sodium Level 139 mmol/L (136-145)
[2024-05-13 09:53] LABS: Calcium Oxalate Crystals Ur 1+ /hpf (<or=2+); Red Blood Cells-Urine > 100 SEEN /hpf (0-5); White Blood Cells 0-5 SEEN /hpf (0-5)
[2024-05-13 09:54] LABS: Squamous Epithelial Cells - UA 0-5 SEEN /hpf (5-10)
--- NOTE | 2024-05-13 10:11 | CT_ITS ---
STUDY: CT ABDOMEN AND PELVIS WITH CONTRAST REASON FOR EXAM: Female, 48 years old. Right flank pain RADIATION DOSAGE (If Supplied By Facility): CTDIvol = ( 15.40 ) mGy, DLP = ( 1072.19 ) mGycm TECHNIQUE: Transaxial images were obtained from the dome of the diaphragm to the symphysis pubis without oral contrast. IV 100mL Isovue-370 was administered. Sagittal and coronal images were reconstructed. Individualized dose optimization techniques were used for this CT. COMPARISON: May 11, 2024 FINDINGS: The visualized lung bases are unremarkable. The visualized portions of the heart are within normal limits. There is a diffuse contour abnormality of the liver consistent with cirrhotic changes. There is a recanalized periumbilical vein. There are distal esophageal varices There is gallbladder wall thickening. There is moderate splenomegaly. Normal pancreas. Normal bilateral adrenal glands. There is moderate right hydronephrosis. There is 0.8 cm stone in the lower pole of the right kidney. There is dilatation of the right ureter. There is 0.8 cm right distal ureteral stone. Normal left kidney. Normal visualized stomach. Normal small intestine. Normal colon. There is non-visualization of the appendix. Normal abdominal aorta. Normal inferior vena cava. Normal retroperitoneum. Normal urinary bladder. Normal visualized uterus. There are tubal ligation clips. There is moderate free fluid in the abdomen and pelvis. Normal abdominal wall. There is degenerative change of the spine. CT/Abdomen/Pelvis W IV Cont ONLY IMPRESSION: Right renal and distal ureteral stones with hydroureteronephrosis. Cirrhotic liver. Splenomegaly. Ascites. Electronically Signed: Chris Sheldon MD at 11:00 EDT ,
[2024-05-13] MEDS: Ondansetron 4 MG/2 ML Vial IV (10:17)
[2024-05-13] MEDS: fentaNYL 100 MCG/2 ML Ampul 50 MCG IV (10:17)
--- NOTE | 2024-05-13 10:33 | ED.VIS.GI ---
HPI HPI - GI History of Present Illness Chief Complaint: Flank Pain Informant: patient Narrative Narrative: Patient is a 48-year-old female complex medical history including cirrhosis of the liver and kidney stones presenting for worsening right flank pain. She states is worsening since Tuesday. It radiates to where I go pee. She also notes overnight she had a 10 pound weight gain. She is she feels weak and just does not feel right. Does not report any nausea or vomiting. States she has chronic diarrhea because of that is not compliant with her lactulose. States that she feels like she is not absorbing any of her food because as soon as she eats she feels it comes right back out. She states she is stooling undigested pills. States when she does not eat she gets hunger pains. States she is now peeing straight blood. Notes her urine now almost looks green. Is currently on Keflex and she thinks has been on for about a week. No other complaints or concerns reported at this time. Was seen in our ER 2 days ago for several complaints. Had lab work including a CT of the abdomen pelvis without contrast. CT showed diffuse ascites, distended gallbladder and nonobstructive calculi of the posterior dependent of the right renal pelvis with some right hydronephrosis however this was thought to be chronic. Per ER note, patient was suspected to have possible developing ulcer disease and recommend she follow-up with GI. [facility] Medical History Bipolar disorder Anxiety Depression Kidney stones Sleep apnea Complete edentulism, class III Alcohol abuse Chronic pain GERD (gastroesophageal reflux disease) Restless legs Iron deficiency anemia Hyperbilirubinemia Substance abuse Marijuana use MRSA infection History of renal disease Low iron Anemia Hepatitis Migraine headache Seizures History of diverticulitis COPD (chronic obstructive pulmonary disease) Smoker Obesity Thrombocytopenia Polysubstance abuse Cirrhosis of liver Anxiety and depression Hepatitis C, chronic Home Medications ?Medication ?Instructions ?Recorded ?Last Taken ?Type gabapentin 100 mg capsule 100 mg PO Q12H nerve pain 07/20/23 Unknown History albuterol sulfate 90 mcg/actuation 2 puff inhalation Q4H PRN PRN 12/04/23 Unknown History aerosol inhaler (Ventolin HFA) shortness of breath or wheezing ascorbate calcium (vitamin C) 500 500 mg PO DAILY vitamin 12/04/23 05/13/24 History mg tablet ferrous sulfate 325 mg (65 mg 325 mg PO DAILY supplement 12/04/23 Unknown History iron) tablet (FeroSul) buspirone 10 mg tablet 10 mg PO 4X/DAY ANXIETY 04/11/24 05/13/24 History desvenlafaxine succinate 50 mg 50 mg PO DAILY 04/11/24 Unknown History tablet,extended release 24 hr melatonin 5 mg tablet 5 mg PO QHS 04/11/24 Unknown History topiramate 50 mg tablet 50 mg PO DAILY 04/11/24 Unknown History cefdinir 300 mg capsule 300 mg PO BID #14 caps 04/13/24 Unknown Rx furosemide 40 mg tablet (Lasix) 40 mg PO DAILY DIURETIC #30 tabs 04/13/24 05/13/24 Rx spironolactone 50 mg tablet 50 mg PO BID #60 tabs 04/13/24 Unknown Rx cephalexin 500 mg capsule 500 mg PO Q6 INFECTION #40 CAPSULES 04/24/24 05/13/24 Rx pantoprazole 40 mg tablet,delayed 40 mg PO DAILY #30 tabs 05/11/24 Unknown Rx release (Protonix) Allergy/AdvReac Type Severity Reaction Status Date / Time bupropion HCl (From Allergy SEIZURES Verified 05/13/24 09:41 Wellbutrin) codeine Allergy Rash Verified 05/13/24 09:41 Family History Mother Diabetes Father Cancer HX Throat CA. Surgical History History of abdominal paracentesis H/O tubal ligation History of liver biopsy Social History adopted: No household members: family housing: other number of children: 3 current occupational status: unemployed pets and animals: Yes history of recent travel: No sexually active: Yes Smoking Status: Current every day smoker tobacco type: cigarettes second hand exposure: Yes alcohol intake: current alcohol intake frequency: a few times a month substance use type: former substance user Date of last use: heroin, marijuana, heroin and methamphetamine seatbelt use: always do you feel safe at home: Yes ROS ROS ED Constitutional Constitutional ED: Reports other Details: Malaise, confusion ; Denies chills or fever(s) ENT ENT ED: Denies sore throat Cardiovascular Cardiovascular: Denies chest pain Respiratory/Chest Respiratory/Chest: Denies cough or dyspnea Gastrointestinal Gastrointestinal: Reports abdominal pain, diarrhea, nausea and other Details: Right flank pain, states is worse with breathing, increased abdominal swelling ; Denies constipation or melena Genitourinary Genitourinary ED: Reports hematuria Musculoskeletal Musculoskeletal: Reports back pain; Denies arthralgias Integumentary Denies rash Neurologic Neurologic: Denies headache(s) Psychiatric Psychiatric: Reports anxiety EXAM Physical Exam Const Vital Signs: 05/13/24 08:59 05/13/24 11:30 Temperature 96.7 F L Temperature Source Temporal Pulse Rate 60 55 L Respiratory Rate 19 H 18 Blood Pressure 178/99 H 155/102 H Blood Pressure Mean 125 119 Pulse Ox 100 100 Oxygen Delivery Method Room Air Room Air Positive well developed Constitutional Narrative: Chronically ill appearing, uncomfortable but no acute distress General Appearance ED: well developed HEENT Reports moist mucous membranes normocephalic and atraumatic Eyes PERRL General Eye ED: Negative for scleral icterus Neck supple Resp normal respiratory effort and clear to auscultation bilaterally Cardio regular rate and regular rhythm GI GI Narrative: Mildly distended abdomen, no fluid wave. Tenderness palpation in the right upper quadrant and right flank/CVA region. No peritoneal signs. Auscultation: normoactive bowel sounds Palpation: soft; Negative for guarding or rigid Back/Spine General Back: CVA tenderness right Extremity full ROM General Extremety ED: Negative for edema General Extremity: Negative for edema Neuro moves all extremities Neuro Narrative: No asterixis on exam Sensorium / Orientation: alert, oriented to person, oriented to place and oriented to time Motor Exam: general weakness Psych mental status grossly normal and thought process normal Skin no wounds General Skin Exam: Negative for jaundice Rashes: no rashes MDM MDM MDM Narrative Medical decision making narrative: Patient is evaluated for worsening right flank pain. Patient was seen and evaluated in her ER 2 days ago and at that time she had a CT that showed a 9.5 mm calculus of the posterior aspect of the right renal pelvis and moderate right hydronephrosis. There is noted to be chronic's on 04/11/2024 patient 9 mm nonobstructive right renal stone with a dilated right renal pelvis and right ureter with mild renal thickening. Patient has been having worsening pain since. She is now having significant hematuria. She is currently on antibiotics for urinary tract infection (states that she is on Keflex). Urine culture from 04/24/2024 showed 11 and 25,000 CFU per mL of both E. coli and MRSA. These were both sensitive to Bactrim. Patient will be switched to oral Bactrim of abundance of caution. Patient does have chronic laboratory abnormalities consistent with her cirrhosis but do not think she has decompensated cirrhosis at this time. Her ammonia level is mildly elevated at 73. I am not sure if she has true hepatic encephalopathy at this time as she is overall is acting appropriate and does not have any asterixis but likely she should be started back on her lactulose. Urinalysis is consistent with a kidney stone with greater than [address] of the abdomen pelvis now shows a right renal distal ureteral stone with hydro ureter nephrosis. This is consistent with her presentation. Patient is initially given fentanyl and then morphine for pain control. She is given Zofran. Given the size of the stone and her symptoms as well as her complex medical history getting treatment for for admission. Patient admitted medicine service with consult to urology. I did discuss the case with urology on-call, Dr. Dawson who is agreeable. Patient case discussed with the main physician, Dr. Shelton. History & Record Review Additional record(s) reviewed:: Prior labs Lab Data Attestation: I reviewed the patient's lab results. Labs: Laboratory Results - last 24 hr 05/13/24 05/13/24 09:30 09:42 WBC 7.4 RBC 4.08 L Hgb 12.7 Hct 36.5 L MCV 89.5 MCH 31.1 MCHC 34.8 RDW Std Deviation 59.9 H RDW Coeff of Katalina 18.6 H Plt Count 60 L MPV 11.6 Immature Gran % (Auto) 0.300 Neut % (Auto) 66.3 Lymph % (Auto) 20.7 Love % (Auto) 8.6 Eos % (Auto) 3.6 Baso % (Auto) 0.5 Absolute Neuts (auto) 4.9 Absolute Lymphs (auto) 1.53 Nucleated RBC % 0 Sodium 139 Potassium 3.1 L Chloride 111 H Carbon Dioxide 23.0 Anion Gap 5 BUN 15 Creatinine 0.96 Estim Creat Clear Calc 66.18 Est GFR (MDRD) Af Amer 79 Est GFR (MDRD) Non-Af 66 BUN/Creatinine Ratio 15.7 Glucose 130 H Calcium 8.7 Total Bilirubin 2.20 H Direct Bilirubin 1.03 H AST 147 H ALT 112 H Alkaline Phosphatase 138 H Ammonia 73.0 H Total Protein 7.4 Albumin 3.1 L Globulin 4.3 H Lipase 63 Urine Color Brown Urine Clarity Cloudy Urine pH 6.0 Ur Specific [place] 1.020 Urine Protein 100 H Urine Glucose (UA) Normal Urine Ketones Negative Urine Occult Blood 250 H Urine Nitrite Negative Urine Bilirubin 1 H Urine Urobilinogen 1 H Ur Leukocyte Esterase 500 H Urine RBC > 100 SEEN Urine WBC 0-5 SEEN Ur Squamous Epith Cells 0-5 SEEN Calcium Oxalate Crystal 1+ Urine Bacteria 0 SEEN Urine Mucus 0 SEEN Urine Opiates Screen NEGATIVE Urine Methadone Screen NEGATIVE Ur Barbiturates Screen NEGATIVE Ur Phencyclidine Scrn NEGATIVE Ur Amphetamines Screen POSITIVE H MDMA (Ecstasy) Screen POSITIVE H U Benzodiazepines Scrn NEGATIVE Urine Cocaine Screen NEGATIVE U Cannabinoids Screen POSITIVE H Ur Drug Screen Comment Radiography Diagnostic Testing: Clinical Impression(s) from Imaging Studies Abdomen/Pelvis CT 05/13/24 10:11 IMPRESSION: Right renal and distal ureteral stones with hydroureteronephrosis. Cirrhotic liver. Splenomegaly. Ascites. Electronically Signed: Chris Sheldon MD at 11:00 EDT , Management Discussion w/another healthcare provider: Hospitalist and Front End Developer [employer] Discharge Plan Dx/Rx/DC Orders Clinical Impression: Hydroureteronephrosis, Acute right flank pain, Hydronephrosis with renal calculous obstruction Disposition Disposition: [facility] Discharge Date/Time: 05/13/24 12:53
[2024-05-13 11:30] VITALS: BP 155/102; PULSE 55; RESP 18; O2SAT 100
[2024-05-13] MEDS: Morphine 4 MG/ML Syringe IV (12:01)
[2024-05-13] MEDS: Smz/Tmp Ds Tablet 1 TABLET PO (12:25)
[2024-05-13 12:27] VITALS: BP 145/92; PULSE 56; RESP 16; TEMP 36.5; O2SAT 100
[2024-05-13 13:21] VITALS: BMI 29.0
[2024-05-13 13:30] VITALS: BP 141/90; PULSE 55; RESP 16; TEMP 36.6; O2SAT 100
[2024-05-13 14:27] LABS: Amphetamine Urine VISTA POSITIVE (<1000 ng/mL); Barbiturate Urine VISTA NEGATIVE (< 200 ng/mL); Benzodiazepine Urine VISTA NEGATIVE (< 200 ng/mL); Cocaine Urine VISTA NEGATIVE (< 300 ng/mL); Ecstacy Urine VISTA POSITIVE (< 500 ng/mL); Methadone Urine VISTA NEGATIVE (< 300 ng/mL); PCP Urine VISTA NEGATIVE (< 25 ng/mL); THC Urine VISTA POSITIVE (< 50 ng/mL); Vista UDS pH Range 5
[2024-05-13] MEDS: Potassium Chloride Oral Tablet 20 MEQ 40 MEQ PO (14:50)
[2024-05-13] MEDS: busPIRone 5 MG Tablet 10 MG PO ×3 (14:52→21:10)
[2024-05-13] MEDS: oxyCODONE 5 MG Tablet 10 MG PO ×2 (15:15→19:47)
--- NOTE | 2024-05-13 17:29 | HP.PCM.HOS_ITS ---
HPI - General General Date of Admission: 05/13/24 Date of Service: 05/13/24 Chief Complaint: Right flank pain, hematuria HPI Narrative CAROLINA HIGHTOWER, is a 48 F who presents to the emergency room at [facility] with complaints of right flank pain and blood in her urine. This has been going on for the last 2 days, patient also complains of weight gain. She has a history of cirrhosis with ascites, she has not undergone a paracentesis for approximately a month. Patient was seen in the ER on 05/11/2024, CT scan at that time showed hydronephrosis on the right but did not identify a ureteral stone. She was placed on Protonix for suspected peptic ulcer. Patient states she does not take lactulose due to loose stools at baseline. Workup in the emergency room today included a CT of the abdomen and pelvis which showed right hydroureteronephrosis and a distal ureter stone and right renal stone.. CBC performed on the patient showed a normal white blood cell count, BMP was remarkable for a potassium of 3.1, bilirubin was elevated at 2.2, AST was elevated 147, ALT was elevated at 112 and alkaline phosphatase was elevated at 138. Patient's ammonia level was 73. UA showed gross hematuria, no bacteria was seen, there were 0-5 white blood cells seen. Urology was contacted and agreed to see the patient tomorrow in consultation, she will need a stent placed in the right ureter. Patient's urine culture from 04/24/2024 grew out small numbers of E. coli and MRSA. [facility] Medical History Bipolar disorder Anxiety Depression Kidney stones Sleep apnea Complete edentulism, class III Alcohol abuse Chronic pain GERD (gastroesophageal reflux disease) Restless legs Iron deficiency anemia Hyperbilirubinemia Substance abuse Marijuana use MRSA infection History of renal disease Low iron Anemia Hepatitis Migraine headache Seizures History of diverticulitis COPD (chronic obstructive pulmonary disease) Smoker Obesity Thrombocytopenia Polysubstance abuse Cirrhosis of liver Anxiety and depression Hepatitis C, chronic Home Medications ?Medication ?Instructions ?Recorded ?Last Taken ?Type gabapentin 100 mg capsule 100 mg PO Q12H nerve pain 07/20/23 Unknown History albuterol sulfate 90 mcg/actuation 2 puff inhalation Q4H PRN PRN 12/04/23 Unknown History aerosol inhaler (Ventolin HFA) shortness of breath or wheezing ascorbate calcium (vitamin C) 500 500 mg PO DAILY vitamin 12/04/23 05/13/24 History mg tablet ferrous sulfate 325 mg (65 mg 325 mg PO DAILY supplement 12/04/23 Unknown History iron) tablet (FeroSul) buspirone 10 mg tablet 10 mg PO 4X/DAY ANXIETY 04/11/24 05/13/24 History desvenlafaxine succinate 50 mg 50 mg PO DAILY 04/11/24 Unknown History tablet,extended release 24 hr melatonin 5 mg tablet 5 mg PO QHS 04/11/24 Unknown History topiramate 50 mg tablet 50 mg PO DAILY 04/11/24 Unknown History cefdinir 300 mg capsule 300 mg PO BID #14 caps 04/13/24 Unknown Rx furosemide 40 mg tablet (Lasix) 40 mg PO DAILY DIURETIC #30 tabs 04/13/24 05/13/24 Rx spironolactone 50 mg tablet 50 mg PO BID #60 tabs 04/13/24 Unknown Rx cephalexin 500 mg capsule 500 mg PO Q6 INFECTION #40 CAPSULES 04/24/24 05/13/24 Rx pantoprazole 40 mg tablet,delayed 40 mg PO DAILY #30 tabs 05/11/24 Unknown Rx release (Protonix) Allergy/AdvReac Type Severity Reaction Status Date / Time bupropion HCl (From Allergy SEIZURES Verified 05/13/24 09:41 Wellbutrin) codeine Allergy Rash Verified 05/13/24 09:41 Family History Mother Diabetes Father Cancer HX Throat CA. Surgical History History of abdominal paracentesis H/O tubal ligation History of liver biopsy Social History adopted: No household members: family housing: other number of children: 3 current occupational status: unemployed pets and animals: Yes history of recent travel: No sexually active: Yes Smoking Status: Current every day smoker tobacco type: cigarettes second hand exposure: Yes alcohol intake: current alcohol intake frequency: a few times a month substance use type: former substance user Date of last use: heroin, marijuana, heroin and methamphetamine seatbelt use: always do you feel safe at home: Yes ROS Constitutional Constitutional: Reports other Details: Weight gain over the last several days ; Denies anorexia, change in weight, chills, fatigue, fever(s), night sweats or weakness Eyes Eyes: Denies blurry vision, change in vision, discharge from eye(s) or eye pain Cardiovascular Cardiovascular: Denies chest pain, claudication, edema or palpitations Respiratory/Chest Respiratory/Chest: Denies cough, hemoptysis, shortness of breath at rest or shortness of breath with exertion Gastrointestinal Gastrointestinal: Reports other Details: Right flank pain ; Denies abdominal pain, constipation, diarrhea, hematemesis, hematochezia, melena, nausea or vomiting Genitourinary Genitourinary: Reports hematuria; Denies dysuria, urinary frequency, urinary hesitancy, urinary incontinence or urinary urgency Musculoskeletal Musculoskeletal: Denies back pain, joint pain, joint stiffness, joint swelling, myalgias or neck pain Neurologic Neurologic: Denies abnormal gait, abnormal speech, dizziness, focal weakness, headache(s), loss of vision, numbness, other visual disturbances, paresthesias, syncope or tingling Psychiatric Psychiatric: Denies anxiety, cognitive impairment, depression, irritability, mood swings or suicidal ideation Endocrine Endocrinology: Denies change in body appearance, cold intolerance, excessive sweating, heat intolerance, polydipsia or polyuria Hematologic/Lymphatic Hematologic/Lymphatic: Denies none, anemia, easy bleeding, easy bruising or lymphadenopathy Allergic/Immunologic Allergic/Immunologic: Denies rhinitis, urticaria, eczemia or asthma Vital Signs Vital Signs Vital Signs: 05/13/24 08:59 05/13/24 11:30 05/13/24 12:27 Temperature 96.7 F L 97.7 F L Temperature Source Temporal Pulse Rate 60 55 L 56 L Respiratory Rate 19 H 18 16 Respiratory Effort Respiratory Depth Respiratory Pattern Blood Pressure 178/99 H 155/102 H 145/92 H Blood Pressure Mean 125 119 109 Blood Pressure Source Blood Pressure Position Blood Pressure Location Pulse Ox 100 100 100 Oxygen Delivery Method Room Air Room Air 05/13/24 13:30 05/13/24 15:25 Temperature 97.9 F Temperature Source Oral Pulse Rate 55 L Respiratory Rate 16 Respiratory Effort Short of Breath Nasal Flaring Respiratory Depth Normal Respiratory Pattern Normal Blood Pressure 141/90 H Blood Pressure Mean 107 Blood Pressure Source Monitor Blood Pressure Position Semi-Fowlers Blood Pressure Location Right Arm Pulse Ox 100 Oxygen Delivery Method Room Air Weight Weight: 72.121 kg Body Mass Index (BMI) 29.0 Physical Exam Const alert, oriented x3 and no apparent distress Constitutional Narrative: Patient appears older than her stated age General Appearance: cooperative, well kempt and well developed Orientation / Consciousness: awake, oriented to person, oriented to place and oriented to time HEENT normocephalic, head/scalp atraumatic and moist oral mucous membranes Eyes PERRL, EOMs intact bilaterally and conjunctivae normal Neck supple, no JVD, thyroid normal and no carotid bruits General: trachea midline Resp normal respiratory effort, no retractions, no use of accessory muscles and clear to auscultation bilaterally Auscultation: Negative for rales, rhonchi or wheezes Cardio regular rate, regular rhythm, S1 normal heart sound, S2 normal heart sound, no murmurs, no rub and no gallops GI normal to inspection, nondistended, normoactive bowel sounds, soft to palpation and non-tender GI Narrative: Abdomen is diffusely distended Extremity Extremity Narrative: Mild edema is noted in the lower legs Skin no rashes or lesions noted General Skin Exam: no breakdown Neuro oriented x3, CN's II-XII intact bilaterally, moves all extremities, no focal motor deficits and no sensory deficits noted Neuro Narrative: Patient has tar dive dyskinesia type movements with rolling of her tongue noted Sensorium / Orientation: awake and alert Speech: speech normal Psych affect normal Results Lab / Micro Data 05/13/24 09:30 05/13/24 09:30 Labs: Laboratory Results - last 24 hr 05/13/24 09:30: WBC 7.4, RBC 4.08 L, Hgb 12.7, Hct 36.5 L, MCV 89.5, MCH 31.1, MCHC 34.8, RDW Std Deviation 59.9 H, RDW Coeff of Katalina 18.6 H, Plt Count 60 L, MPV 11.6, Immature Gran % (Auto) 0.300, Neut % (Auto) 66.3, Lymph % (Auto) 20.7, [place] % (Auto) 8.6, Eos % (Auto) 3.6, Baso % (Auto) 0.5, Absolute Neuts (auto) 4.9, Absolute Lymphs (auto) 1.53, Nucleated RBC % 0, Sodium 139, Potassium 3.1 L , Chloride 111 H, Carbon Dioxide 23.0, Anion Gap 5, BUN 15, Creatinine 0.96, Estim Creat Clear Calc 66.18, Est GFR (MDRD) Af Amer 79, Est GFR (MDRD) Non-Af 66, BUN/Creatinine Ratio 15.7, Glucose 130 H, Calcium 8.7, Total Bilirubin 2.20 H, Direct Bilirubin 1.03 H, AST 147 H, ALT 112 H, Alkaline Phosphatase 138 H, A mmonia 73.0 H, Total Protein 7.4, Albumin 3.1 L, Globulin 4.3 H, Lipase 63 05/13/24 09:42: Urine Color Brown, Urine Clarity Cloudy, Urine pH 6.0, Ur Specific [place] 1.020, Urine Protein 100 H, Urine Glucose (UA) Normal, Urine Ketones Negative, Urine Occult Blood 250 H, Urine Nitrite Negative, Urine Bilirubin 1 H, Urine Urobilinogen 1 H, Ur Leukocyte Esterase 500 H, Urine RBC > 100 SEEN, Urine WBC 0-5 SEEN, Ur Squamous Epith Cells 0-5 SEEN, Calcium Oxalate Crystal 1+, Urine Bacteria 0 SEEN, Urine Mucus 0 SEEN, Urine Opiates Screen NEGATIVE, Urine Methadone Screen NEGATIVE, Ur Barbiturates Screen NEGATIVE, Ur Phencyclidine Scrn NEGATIVE, Ur Amphetamines Screen POSITIVE H, MDMA (Ecstasy) Screen POSITIVE H, U Benzodiazepines Scrn NEGATIVE, Urine Cocaine Screen NEGATIVE, U Cannabinoids Screen POSITIVE H, Ur Drug Screen Comment Imaging Radiology Impression Abdomen/Pelvis CT 05/13/24 10:11 IMPRESSION: Right renal and distal ureteral stones with hydroureteronephrosis. Cirrhotic liver. Splenomegaly. Ascites. Electronically Signed: Chris Sheldon MD at 11:00 EDT , Assessment & Plan Assessment/Plan (1) Hydronephrosis with renal calculous obstruction: PLAN: Plan 1. Right hydroureteronephrosis secondary to obstructive stone in ureter with right flank pain and right lower abdominal pain-patient will be admitted to [facility] 3, I will not administer any fluids at this time due to the patient's history of cirrhosis and ascites, patient will remain on her diuretics at this time, she will be seen in consultation by urology and hopefully will undergo stent placement tomorrow, she will be administered pain medications as needed #2 hematuria secondary to right ureteral stone-patient was placed on Bactrim due to her recent culture showing E. coli and MRSA, patient does not appear toxic at this time #3 gross ascites-patient will need to undergo a paracentesis tomorrow #4 chronic cirrhosis-complicates care, management, recovery, and prognosis Total clinical time spent by myself addressing the patient's medical issues, reviewing all of her data, and collaborating with patient's care team: 55 minutes Charges/Coding Visit Charges Inpatient E&M: 88052 Init Hosp L2
[2024-05-13 18:25] VITALS: BP 150/85; PULSE 63; RESP 18; TEMP 36.5; O2SAT 100
[2024-05-13 21:06] VITALS: BP 135/63; PULSE 67; RESP 16; TEMP 36.4; O2SAT 100
[2024-05-13] MEDS: Spironolactone 50 MG Tablet PO (21:09)
[2024-05-13] MEDS: MELATONIN 10 MG TABLET 5 MG PO (21:10)
[2024-05-13] MEDS: Heparin Injection (Vial) 5,000 UNIT/ML VIAL 5000 UNIT SC (21:10)
[2024-05-13] MEDS: Gabapentin 100 MG Capsule PO (21:15)
[2024-05-14] MEDS: oxyCODONE 5 MG Tablet 10 MG PO ×2 (00:59→20:39)
[2024-05-14 01:02] VITALS: BP 143/81; PULSE 71; RESP 16; TEMP 36.4; O2SAT 100
[2024-05-14] MEDS: HYDROmorphone 1 MG/ML Syringe IV ×2 (04:57→11:45)
[2024-05-14] MEDS: 0.9% Saline Lock 10 ML Syringe IV ×3 (05:00→11:46)
[2024-05-14 05:10] LABS: Absolute Lymphocyte Count 1.49 X10^3/uL (0.83-4.51); Absolute Neutrophil Count 6.1 X10^3/uL (2.0-7.7); Basophil# 0.07 X10^3/uL; Basophil% 0.7 % (0-1); Eosinophil# 0.49 X10^3/uL; Eosinophils% 5.2 % (0-5); Hematocrit 32.4 % (37-47); Hemoglobin 11.2 g/dL (12.0-15.0); Lymphocyte # 1.49 X10^3/ul (0.83-4.51); Lymphocyte % 15.9 % (19-41); Mean Corp Hgb Conc 34.6 g/dL (32-36); Mean Corpuscular Hgb 30.8 pg (27.0-32.0); Mean Platelet Vol. 11.4 fl (6.2-12.0); Monocyte# 1.21 X10^3/uL; Monocyte% 12.9 % (0-10); NRBC Flagged by Analyzer 0 % (0-5); Neutrophil # 6.09 X10^3/uL (2.7-7.7); Neutrophil % 64.8 % (47-70); POSITIVE COUNT YES; Platelet Count 71 K/mm3 (150-450); RBC Distribution Width CV 18.6 % (11.6-14.6); RBC Distribution Width SD 59.7 fl (35.1-43.9); Red Blood Count 3.64 M/mm3 (4.2-5.4); White Blood Count 9.4 K/mm3 (4.4-11.0)
[2024-05-14 05:18] LABS: International Normalized Ratio 1.5; Prothrombin Time (Protime)PT. 18.4 SECONDS (11.7-14.9)
[2024-05-14 05:19] LABS: Partial Thromboplast Time 39.4 Seconds (24.1-36.2)
[2024-05-14 05:30] LABS: Anion Gap 5 (5-15); BUN 12 mg/dL (7-18); BUN/Creat Ratio 14.2 RATIO (10-20); Calcium,Total 8.9 mg/dL (8.5-10.1); Chloride 111 mmol/L (98-107); Creatinine, Serum 0.85 mg/dL (0.55-1.02); EST Glomerular Filtration Rate 76 mL/min (>60); Est Glom Filt Rate - Afr Amer 91 mL/min (>60); Estimated Creatinine Clearance 73.64 ml/min; Glucose 121 mg/dL (74-106); Potassium 3.4 mmol/L (3.5-5.1); Sodium Level 138 mmol/L (136-145)
[2024-05-14 05:36] LABS: Magnesium 1.6 mg/dL (1.6-2.6); Phosphorus 3.5 mg/dL (2.5-4.9)
--- NOTE | 2024-05-14 06:00 | EKG12_ITS ---
Test Reason : PRE OP Blood Pressure : / mmHG Vent. Rate : 060 BPM Atrial Rate : 060 BPM P-R Int : 160 ms QRS Dur : 086 ms QT Int : 444 ms P-R-T Axes : 066 013 048 degrees QTc Int : 444 ms Normal sinus rhythm Normal ECG When compared with ECG of 10-NOV-2023 15:55, No significant change was found Confirmed by MARTELL DOOLEY, PEGGY ([id number]), rewrite editor OBED CHRISTIAN ([id number]) on 05/18/2024 9:56:46 AM Referred By: TIM Confirmed By:JAMIA MOURA MD
[2024-05-14 06:14] VITALS: BP 134/87; PULSE 71; RESP 16; TEMP 36.6; O2SAT 100
[2024-05-14] MEDS: Ondansetron 4 MG/2 ML Vial IV (06:20)
--- NOTE | 2024-05-14 07:00 | US_ITS ---
STUDY: ABDOMINAL ULTRASOUND -ascites survey. REASON FOR VISIT: Female, 48 years old ascites -- Please perform in the morning of 05/14/2024 TECHNIQUE: Ultrasound evaluation of the 4 quadrants was performed with real-time and static astorga-scale imaging. TECHNICAL QUALITY: Adequate. COMPARISON: None. FINDINGS: The 4 quadrants were assessed for ascites. Not enough fluid was present for safe paracentesis. US/Abdomen Limited IMPRESSION: Not enough fluid for safe paracentesis. Electronically Signed: Isidro Burnett MD at 8:17 EDT ,
--- NOTE | 2024-05-14 08:16 | CON.PCM.UR_ITS ---
HPI Consult Data Date of Consult: 05/14/24 HPI Narrative Reason for Consultation: Obstructing right ureter calculus HPI Narrative: CAROLINA HIGHTOWER, is a 48 F who presentsTo the hospital with a large obstructing stone in distal right ureter with hydronephrosis, plan to take her to surgery today for cystoscopy right stent placement, she should NPO and get consent. [facility] Medical History Bipolar disorder Anxiety Depression Kidney stones Sleep apnea Complete edentulism, class III Alcohol abuse Chronic pain GERD (gastroesophageal reflux disease) Restless legs Iron deficiency anemia Hyperbilirubinemia Substance abuse Marijuana use MRSA infection History of renal disease Low iron Anemia Hepatitis Migraine headache Seizures History of diverticulitis COPD (chronic obstructive pulmonary disease) Smoker Obesity Thrombocytopenia Polysubstance abuse Cirrhosis of liver Anxiety and depression Hepatitis C, chronic Home Medications ?Medication ?Instructions ?Recorded ?Last Taken ?Type gabapentin 100 mg capsule 100 mg PO Q12H nerve pain 07/20/23 Unknown History albuterol sulfate 90 mcg/actuation 2 puff inhalation Q4H PRN PRN 12/04/23 Unknown History aerosol inhaler (Ventolin HFA) shortness of breath or wheezing ascorbate calcium (vitamin C) 500 500 mg PO DAILY vitamin 12/04/23 05/13/24 History mg tablet ferrous sulfate 325 mg (65 mg 325 mg PO DAILY supplement 12/04/23 Unknown History iron) tablet (FeroSul) buspirone 10 mg tablet 10 mg PO 4X/DAY ANXIETY 04/11/24 05/13/24 History desvenlafaxine succinate 50 mg 50 mg PO DAILY 04/11/24 Unknown History tablet,extended release 24 hr melatonin 5 mg tablet 5 mg PO QHS 04/11/24 Unknown History topiramate 50 mg tablet 50 mg PO DAILY 04/11/24 Unknown History cefdinir 300 mg capsule 300 mg PO BID #14 caps 04/13/24 Unknown Rx furosemide 40 mg tablet (Lasix) 40 mg PO DAILY DIURETIC #30 tabs 04/13/24 05/13/24 Rx spironolactone 50 mg tablet 50 mg PO BID #60 tabs 04/13/24 Unknown Rx cephalexin 500 mg capsule 500 mg PO Q6 INFECTION #40 CAPSULES 04/24/24 05/13/24 Rx pantoprazole 40 mg tablet,delayed 40 mg PO DAILY #30 tabs 05/11/24 Unknown Rx release (Protonix) Allergy/AdvReac Type Severity Reaction Status Date / Time bupropion HCl (From Allergy SEIZURES Verified 05/13/24 09:41 Wellbutrin) codeine Allergy Rash Verified 05/13/24 09:41 Family History Mother Diabetes Father Cancer HX Throat CA. Surgical History History of abdominal paracentesis H/O tubal ligation History of liver biopsy Social History adopted: No household members: family housing: other number of children: 3 current occupational status: unemployed pets and animals: Yes history of recent travel: No sexually active: Yes Smoking Status: Current every day smoker tobacco type: cigarettes second hand exposure: Yes alcohol intake: current alcohol intake frequency: a few times a month substance use type: former substance user Date of last use: heroin, marijuana, heroin and methamphetamine seatbelt use: always do you feel safe at home: Yes Lab / Micro Data 05/14/24 04:10 05/14/24 04:10 Labs: Laboratory Results - last 24 hr 05/13/24 09:30: WBC 7.4, RBC 4.08 L, Hgb 12.7, Hct 36.5 L, MCV 89.5, MCH 31.1, MCHC 34.8, RDW Std Deviation 59.9 H, RDW Coeff of Katalina 18.6 H, Plt Count 60 L, MPV 11.6, Immature Gran % (Auto) 0.300, Neut % (Auto) 66.3, Lymph % (Auto) 20.7, [place] % (Auto) 8.6, Eos % (Auto) 3.6, Baso % (Auto) 0.5, Absolute Neuts (auto) 4.9, Absolute Lymphs (auto) 1.53, Nucleated RBC % 0, Sodium 139, Potassium 3.1 L , Chloride 111 H, Carbon Dioxide 23.0, Anion Gap 5, BUN 15, Creatinine 0.96, Estim Creat Clear Calc 66.18, Est GFR (MDRD) Af Amer 79, Est GFR (MDRD) Non-Af 66, BUN/Creatinine Ratio 15.7, Glucose 130 H, Calcium 8.7, Total Bilirubin 2.20 H, Direct Bilirubin 1.03 H, AST 147 H, ALT 112 H, Alkaline Phosphatase 138 H, A mmonia 73.0 H, Total Protein 7.4, Albumin 3.1 L, Globulin 4.3 H, Lipase 63 05/13/24 09:42: Urine Color Brown, Urine Clarity Cloudy, Urine pH 6.0, Ur Specific [place] 1.020, Urine Protein 100 H, Urine Glucose (UA) Normal, Urine Ketones Negative, Urine Occult Blood 250 H, Urine Nitrite Negative, Urine Bilirubin 1 H, Urine Urobilinogen 1 H, Ur Leukocyte Esterase 500 H, Urine RBC > 100 SEEN, Urine WBC 0-5 SEEN, Ur Squamous Epith Cells 0-5 SEEN, Calcium Oxalate Crystal 1+, Urine Bacteria 0 SEEN, Urine Mucus 0 SEEN, Urine Opiates Screen NEGATIVE, Urine Methadone Screen NEGATIVE, Ur Barbiturates Screen NEGATIVE, Ur Phencyclidine Scrn NEGATIVE, Ur Amphetamines Screen POSITIVE H, MDMA (Ecstasy) Screen POSITIVE H, U Benzodiazepines Scrn NEGATIVE, Urine Cocaine Screen NEGATIVE, U Cannabinoids Screen POSITIVE H, Ur Drug Screen Comment 05/14/24 04:10: WBC 9.4, RBC 3.64 L, Hgb 11.2 L, Hct 32.4 L, MCV 89.0, MCH 30.8, MCHC 34.6, RDW Std Deviation 59.7 H, RDW Coeff of Katalina 18.6 H, Plt Count 71 L, MPV 11.4, Immature Gran % (Auto) 0.500, Neut % (Auto) 64.8, Lymph % (Auto) 15.9 L, [place] % (Auto) 12.9 H, Eos % (Auto) 5.2 H, Baso % (Auto) 0.7, Absolute Neuts (auto) 6.1, Absolute Lymphs (auto) 1.49, Nucleated RBC % 0, PT 18.4 H, INR 1.5, APTT 39.4 H, Sodium 138, Potassium 3.4 L, Chloride 111 H, Carbon Dioxide 22.0, Anion Gap 5, BUN 12, Creatinine 0.85, Estim Creat Clear Calc 73.64, Est GFR (MDRD) Af Amer 91, Est GFR (MDRD) Non-Af 76, BUN/Creatinine Ratio 14.2, Glucose 121 H, Calcium 8.9, Phosphorus 3.5, Magnesium 1.6 Imaging Radiology Impression Abdomen/Pelvis CT 05/13/24 10:11 IMPRESSION: Right renal and distal ureteral stones with hydroureteronephrosis. Cirrhotic liver. Splenomegaly. Ascites. Electronically Signed: Chris Sheldon MD at 11:00 EDT ,
--- NOTE | 2024-05-14 08:27 | PN.HOSP_ITS ---
Reason for Visit Reason for Visit: Diagnoses Hydronephrosis with renal and ureteral calculous obstruction (05/13/24) Subjective Subjective Patient overnight with intermittent agitation and irritability, frequently with several complaints to staff. This morning main complaint was inability to eat because awaiting procedure and unfortunately despite strong recommendation not to and that it would delay her care in front of the charge nurse she drank Coke and ate Jell-O. Currently not complaining of any ongoing flank pain. Patient denies fevers, chills, nausea, emesis, chest pain or dyspnea. Objective Data Objective Data Vital Signs: Vital Signs Temp Pulse Resp BP Pulse Ox O2 Del Method 97.8 F 71 16 134/87 H 100 Room Air 05/14/24 06:14 05/14/24 06:14 05/14/24 06:14 05/14/24 06:14 05/14/24 06:14 05/14/24 06:14 Oxygen Delivery Method Room Air Weight: 159 lb Body Mass Index (BMI) 29.0 Intake & Output: Intake and Output for Last 24 Hours 05/12/24 05/13/24 05/14/24 23:59 23:59 23:59 Intake Total 300 / 300 Output Total 950 / 950 Balance -650 / -650 Lab / Micro Data 05/14/24 04:10 05/14/24 04:10 Labs: Laboratory Results - last 24 hr 05/13/24 09:30: WBC 7.4, RBC 4.08 L, Hgb 12.7, Hct 36.5 L, MCV 89.5, MCH 31.1, MCHC 34.8, RDW Std Deviation 59.9 H, RDW Coeff of Katalina 18.6 H, Plt Count 60 L, MPV 11.6, Immature Gran % (Auto) 0.300, Neut % (Auto) 66.3, Lymph % (Auto) 20.7, [place] % (Auto) 8.6, Eos % (Auto) 3.6, Baso % (Auto) 0.5, Absolute Neuts (auto) 4.9, Absolute Lymphs (auto) 1.53, Nucleated RBC % 0, Sodium 139, Potassium 3.1 L , Chloride 111 H, Carbon Dioxide 23.0, Anion Gap 5, BUN 15, Creatinine 0.96, Estim Creat Clear Calc 66.18, Est GFR (MDRD) Af Amer 79, Est GFR (MDRD) Non-Af 66, BUN/Creatinine Ratio 15.7, Glucose 130 H, Calcium 8.7, Total Bilirubin 2.20 H, Direct Bilirubin 1.03 H, AST 147 H, ALT 112 H, Alkaline Phosphatase 138 H, A mmonia 73.0 H, Total Protein 7.4, Albumin 3.1 L, Globulin 4.3 H, Lipase 63 05/13/24 09:42: Urine Color Brown, Urine Clarity Cloudy, Urine pH 6.0, Ur Specific [place] 1.020, Urine Protein 100 H, Urine Glucose (UA) Normal, Urine Ketones Negative, Urine Occult Blood 250 H, Urine Nitrite Negative, Urine Bilirubin 1 H, Urine Urobilinogen 1 H, Ur Leukocyte Esterase 500 H, Urine RBC > 100 SEEN, Urine WBC 0-5 SEEN, Ur Squamous Epith Cells 0-5 SEEN, Calcium Oxalate Crystal 1+, Urine Bacteria 0 SEEN, Urine Mucus 0 SEEN, Urine Opiates Screen NEGATIVE, Urine Methadone Screen NEGATIVE, Ur Barbiturates Screen NEGATIVE, Ur Phencyclidine Scrn NEGATIVE, Ur Amphetamines Screen POSITIVE H, MDMA (Ecstasy) Screen POSITIVE H, U Benzodiazepines Scrn NEGATIVE, Urine Cocaine Screen NEGATIVE, U Cannabinoids Screen POSITIVE H, Ur Drug Screen Comment 05/14/24 04:10: WBC 9.4, RBC 3.64 L, Hgb 11.2 L, Hct 32.4 L, MCV 89.0, MCH 30.8, MCHC 34.6, RDW Std Deviation 59.7 H, RDW Coeff of Katalina 18.6 H, Plt Count 71 L, MPV 11.4, Immature Gran % (Auto) 0.500, Neut % (Auto) 64.8, Lymph % (Auto) 15.9 L, [place] % (Auto) 12.9 H, Eos % (Auto) 5.2 H, Baso % (Auto) 0.7, Absolute Neuts (auto) 6.1, Absolute Lymphs (auto) 1.49, Nucleated RBC % 0, PT 18.4 H, INR 1.5, APTT 39.4 H, Sodium 138, Potassium 3.4 L, Chloride 111 H, Carbon Dioxide 22.0, Anion Gap 5, BUN 12, Creatinine 0.85, Estim Creat Clear Calc 73.64, Est GFR (MDRD) Af Amer 91, Est GFR (MDRD) Non-Af 76, BUN/Creatinine Ratio 14.2, Glucose 121 H, Calcium 8.9, Phosphorus 3.5, Magnesium 1.6 Radiography Diagnostic Testing: Radiology Impression Abdomen/Pelvis CT 05/13/24 10:11 IMPRESSION: Right renal and distal ureteral stones with hydroureteronephrosis. Cirrhotic liver. Splenomegaly. Ascites. Electronically Signed: Chris Sheldon MD at 11:00 EDT , Physical Exam Narrative Physical Examination: General: Awake, alert, oriented x 3 and cooperative, laying in the MS bed, restless, irritable. Skin: Normal color, normal turgor, no icterus, no cyanosis except occasional stage ecchymoses HEENT: AT/NC, EOMI, PERRLA, mildly dry MM. Lungs: Diminished, greater bases, poor effort, no rales, rhonchi or wheezing Heart: Currently regular rate and rhythm; no gallop, rub audible. Abdomen: Soft, no grimacing with palpation or any rebound or guarding, does not appear distended, no fluid wave, hyperactive BS. Extremities: No cyanosis, clubbing, or marked edema. Neurological: Patient awake, alert, oriented as noted, cognitive function intact; pupils equally reactive to light and accommodation, cranial nerves grossly normal, moving all 4 extremities, no focal deficits, strength mildly decreased, restless. Psychiatric: Affect appears restless, irritable, agitated, o acute evidence of depressive or anxiety feelings but does have underlying history. Assessment & Plan Assessment/Plan (1) Hydronephrosis with renal calculous obstruction: (2) Acute right flank pain: PLAN: Plan The patient is a 48 y/o F w/ PMHx: Obesity, Anxiety and Depression/Bipolar disorder, Polysubstance abuse, Chronic pain syndrome, Chronic anemia/Fe deficiency anemia, SUMAYA noncompliant with PAP therapy, GERD, Hx nephrolithiasis, GERD, Chronic migraines, COPD, Tobacco use, Chronic thrombocytopenia, EtOH abuse/Chronic Hepatitis C with cirrhotic liver disease who presents to the [facility] ED on 05/13/2024 with right flank discomfort and hematuria in addition to complaints of abdominal fullness and weight gain with routine paracentesis outpatient x 2 days prompting eventual ED evaluation. #1. Acute obstructive uropathy with right renal and distal ureteral stones with hydroureteronephrosis with 0.8 cm stone noted in the lower pole of the right kidney and right distal ureteral region: CT abdomen pelvis with right renal and distal ureteral stones with hydronephrosis, admitted to medical surgical floor, urology consulted with planned right sided stent and cystoscopy however unfortunately patient noncompliant and AMA ate and drink prior to transition to procedure 05/14/2020 4 AM, will again maintain n.p.o. status after midnight for planned reattempt 05/15/2024 at noon, will continue hydration, pain regimen and antiemetic regimen as needed. #2. History alcohol abuse/chronic hepatitis C with underlying cirrhotic liver disease associated: Patient with routine paracenteses at least monthly, abdominal ultrasound per radiology performed however despite patient complaint of abdominal fullness and weight gain no marked fluid thus paracentesis deferred. Encourage continued outpatient follow-up with GI/PCP as previously arranged. Will continue patient home spironolactone, Lasix, not on any Xifaxan or lactulose per current list. #3. Polysubstance abuse, history of alcohol abuse with associated chronic thrombocytopenia: Encouraged complete sobriety as patient per list does drink an occasional alcoholic beverage but less than previously, UDS with positive amphetamine, MDMA, cannabis which is also been noted previously. Encourage clean status, sober status. Suspect this presentation likely contributing to her irritable, restless behavior. Admission CBC with platelets 60, repeat 71, similar to baseline, continue to trend. #4. Chronic anemia/iron deficiency anemia: Admission hemoglobin 12.7, MCV 90.3, follow-up 11.2, baseline more recently appears primarily 08-07, will continue to trend CBC, continue iron supplementation. #5. Chronic COPD: Not on any chronic regimen, encouraged tobacco cessation, PRN albuterol, HOB, IS parameters. #6. Tobacco Abuse: Encouraged cessation, inpatient consultation per RT, NR if desired. #7. Hypertension: Continue home regimen including spironolactone, Lasix with hold parameters as needed, PRN hydralazine. #8. Hyperlipidemia: Per current list on a regimen, defer to outpatient. #9. Anxiety and Depression/Bipolar disorder: Continue patient home BuSpar as well as Effexor home regimen, encourage continued outpatient follow-up/therapy as previously recommended/arranged. #10. Chronic migraines: We will continue patient home Topamax regimen. #11. Obesity: Weight loss and lifestyle changes encouraged. #12. SUMAYA: Noncompliant with PAP therapy. #13. GERD: We will keep patient on PPI. #14. DVT prophylaxis: SCDs. Charges/Coding Visit Charges Inpatient E&M: 56290 Subs Hosp L3
--- NOTE | 2024-05-14 10:15 | CASEMGMT ---
[facility] Readmission Note Previous Admission: 04/11/24-04/13/24 Diagnosis: acute cystitis without hematuria, thrombocytopenia DC Disposition: Home with Dtr Current Admission: Admitted 05/13/24 Current Diagnosis: hydronephrosis, R ureteral obstruction Strata: 3 Pt admitted with above diagnosis and planned to go for stent today with . Last admission pt was seen by GI with meds adjusted. Pt was scheduled for a paracentesis but did not have enough fluid to remove. Pt was dc'd with new medications- lasix, spironolactone and cefdinir and follow up with PCP and Dr. Porras. NASH CM into pt room, pt returning from bathroom unassisted. Pt states she did follow up with her PCP, she is taking her meds as ordered and has an appt next month with . Pt reports she is now staying at the [facility] and is using a taxi or walking for transportation. Pt aware SW will meet with her. Pt became upset stating that she wants to eat since her surgery was cancelled. Pt aware she is to go for stent with . Pt to speak with her nurse regarding this. Pt reports she plans to go back to [facility] and denies any needs from this NASH SOUZA. Updated SW. Pt Goal: Return to [facility]
--- NOTE | 2024-05-14 11:35 | NURSING ---
into room as seen pt taking coke and jello from refreshment area. pt found to be in bathroom chugging coke and had jello in her hand. Patient reeducated that she can not have anything to eat or drink because of her surgery. Pt states I don't care pt states that she was told at midnight she could not have anything to eat or drink after midnight because of the surgery, pt states I told them then I don't care it makes my stomach hurt not to have anything to eat or drink. Attempted to educate patient on the risk of eating or drinking with anesthesia. educated patient that surgery may be postponed as she has drank the coke and asked patient not to eat the jello. pt's response it's not the end of the world, they can do it tomrrow Lenny Rivera RN informed of situation. Marielos Ken called as unable to reach OR charge nurse. Aware surgery will be postponed atleast 4hrs per Dr. Tran. 1143- Marielos Ken called, states OR cancelled for today, Rescheduled for tomorrow at noon. Lenny CAO informed.
[2024-05-14] MEDS: busPIRone 5 MG Tablet 10 MG PO ×4 (11:53→22:56)
[2024-05-14] MEDS: Topiramate 50 MG Tablet PO (11:53)
[2024-05-14] MEDS: Potassium Chloride Oral Tablet 20 MEQ PO (11:53)
[2024-05-14] MEDS: Venlafaxine XR 37.5 MG Capsule PO (11:53)
[2024-05-14] MEDS: Pantoprazole Sodium 40 MG Tablet PO (11:54)
[2024-05-14] MEDS: Ferrous Sulfate 325 MG Tablet PO (11:54)
[2024-05-14] MEDS: Spironolactone 50 MG Tablet PO ×2 (11:54→22:56)
[2024-05-14] MEDS: Furosemide 40 MG Tablet PO (11:54)
[2024-05-14] MEDS: Gabapentin 100 MG Capsule PO ×2 (11:59→22:56)
[2024-05-14 12:00] VITALS: BP 117/75; PULSE 60; RESP 16; TEMP 36.6; O2SAT 100
--- NOTE | 2024-05-14 14:28 | CASEMGMT ---
Social Work- Sw attempted to meet with pt to complete SDOH. When SW entered the room, pt was observed 'slumped' or 'nodding'. Pt was holding a cracker and her phone. Pt did not look up or respond to verbal engagement. Pt phone began to ring at which time, pt attempted to straighten her stance. Pt straightened about [address] standing upright, but while blankly staring at her phone, pt began to once again lean into nodding/slumping position, losing balance and stumbling while rubbing hair with cracker before holding the cracker to her phone. SW directed pt to walk to the bed. After several requests, pt acknowledged SW ask and climbed into bed, resting on her elbow, still bent at an angle. SW asked pt to put down the cracker; pt did not acknowledge. SW directly reported to bedside nurse what SW observed and shared concerns. SW will continue to follow and attempt to complete SDOH. MIRIAM Clemente
[2024-05-14 16:49] VITALS: BP 128/86; PULSE 60; RESP 12; TEMP 36.9; O2SAT 100
[2024-05-14] MEDS: Heparin Injection (Vial) 5,000 UNIT/ML VIAL 5000 UNIT SC (22:56)
[2024-05-14] MEDS: MELATONIN 10 MG TABLET 5 MG PO (22:56)
[2024-05-14] MEDS: BACITRACIN 15 GM Tube 1 APPLIC TOPICAL (22:57)
[2024-05-14 23:00] VITALS: PULSE 54
[2024-05-14 23:03] VITALS: BP 115/65; PULSE 54; RESP 16; TEMP 36.6; O2SAT 99
[2024-05-15] VITALS (11 sets, daily range): BP systolic 95–143; BP diastolic 59–86; PULSE 56–66; RESP 14–18; TEMP 35.9–36.8; O2SAT 98–100
[2024-05-15] MEDS: HYDROmorphone 1 MG/ML Syringe IV (03:01)
[2024-05-15] MEDS: 0.9% Saline Lock 10 ML Syringe IV (03:02)
--- NOTE | 2024-05-15 04:19 | NURSING ---
pt turned personal insurance advisor light and was yelling in her room that she had to have water reminded her that she is having surgery, pt could be heard at the desk yelling in her room, pt then came out to nursing station and yelled at staff calling staff stupid that she wants a bandaid directed her that it is not acceptable to yell at staff and to return to her room, security called. pt went to another staff member and said she was lost and was being accompanied to her room when security arrived. pt went to room and security followed and stayed in locke while primary rn put bandaid on pt chin where she keeps picking it. pt reports she took a sip of water, reminded her not to drink/eat or she would not be able to have surgery today. advised pt to remain in her room
[2024-05-15] MEDS: oxyCODONE 5 MG Tablet 10 MG PO (04:45)
[2024-05-15 06:39] LABS: Absolute Lymphocyte Count 2.43 X10^3/uL (0.83-4.51); Absolute Neutrophil Count 4.8 X10^3/uL (2.0-7.7); Basophil# 0.07 X10^3/uL; Basophil% 0.8 % (0-1); Eosinophil# 0.42 X10^3/uL; Eosinophils% 4.8 % (0-5); Hematocrit 33.5 % (37-47); Hemoglobin 11.3 g/dL (12.0-15.0); Lymphocyte # 2.43 X10^3/ul (0.83-4.51); Lymphocyte % 28.1 % (19-41); Mean Corp Hgb Conc 33.7 g/dL (32-36); Mean Corpuscular Hgb 30.7 pg (27.0-32.0); Mean Platelet Vol. 11.6 fl (6.2-12.0); Monocyte# 0.91 X10^3/uL; Monocyte% 10.5 % (0-10); NRBC Flagged by Analyzer 0 % (0-5); Neutrophil # 4.78 X10^3/uL (2.7-7.7); Neutrophil % 55.2 % (47-70); POSITIVE COUNT YES; Platelet Count 71 K/mm3 (150-450); RBC Distribution Width CV 19.2 % (11.6-14.6); RBC Distribution Width SD 62.2 fl (35.1-43.9); Red Blood Count 3.68 M/mm3 (4.2-5.4); White Blood Count 8.7 K/mm3 (4.4-11.0)
[2024-05-15 06:47] LABS: ALB/GLOB Ratio 0.6 RATIO (0.9-2.4); AST(SGOT) 157 U/L (15-37); Alanine Aminotransfer ALT/SGPT 116 U/L (13-56); Albumin, Serum 2.7 g/dL (3.2-5.0); Alkaline Phosphatase 142 U/L (45-117); Anion Gap 1 (5-15); BUN 10 mg/dL (7-18); BUN/Creat Ratio 11.8 RATIO (10-20); Calcium,Total 8.6 mg/dL (8.5-10.1); Chloride 112 mmol/L (98-107); Creatinine, Serum 0.84 mg/dL (0.55-1.02); EST Glomerular Filtration Rate 76 mL/min (>60); Est Glom Filt Rate - Afr Amer 91 mL/min (>60); Estimated Creatinine Clearance 74.51 ml/min; Globulin 4.3 g/dL (2.2-4.2); Glucose 104 mg/dL (74-106); Potassium 3.8 mmol/L (3.5-5.1); Sodium Level 140 mmol/L (136-145)
[2024-05-15] MEDS: BACITRACIN 15 GM Tube 1 APPLIC TOPICAL (06:54)
--- NOTE | 2024-05-15 07:18 | PCM.PN.HOSP ---
Reason for Visit Reason for Visit: Diagnoses Hydronephrosis with renal and ureteral calculous obstruction (05/13/24) Unspecified abdominal pain (05/13/24) Subjective Subjective Patient with no acute events overnight with no specific pain complaints. Unfortunately patient was found with several unlabeled pills in a bag and had been in the bathroom for considerable amount of time following which she was very sedate with concern that she was taking unclear drugs especially given her positive UDS upon presentation. Discussed plan of care with patient which included cystoscopy and stent placement as well as preference per urology to continue with 5-day course of Bactrim to be cautious to which she was amenable. Patient without evidence of fevers, chills, nausea, emesis, abdominal pain, chest pain or dyspnea. Objective Data Objective Data Vital Signs: Vital Signs Temp Pulse Resp BP Pulse Ox O2 Del Method 98.2 F 66 16 129/86 H 100 Room Air 05/15/24 02:58 05/15/24 02:58 05/15/24 02:58 05/15/24 02:58 05/15/24 02:58 05/15/24 02:58 Oxygen Delivery Method Room Air Weight: 159 lb Body Mass Index (BMI) 29.0 Intake & Output: Intake and Output for Last 24 Hours 05/13/24 05/14/24 05/15/24 23:59 23:59 23:59 Intake Total 600 / 800 200 / 200 Output Total 3200 / 4150 950 / 950 Balance -2600 / -3350 -750 / -750 Lab / Micro Data 05/15/24 06:00 05/15/24 06:00 Labs: Laboratory Results - last 24 hr 05/15/24 06:00: WBC 8.7, RBC 3.68 L, Hgb 11.3 L, Hct 33.5 L, MCV 91.0, MCH 30.7, MCHC 33.7, RDW Std Deviation 62.2 H, RDW Coeff of Katalina 19.2 H, Plt Count 71 L, MPV 11.6, Immature Gran % (Auto) 0.600, Neut % (Auto) 55.2, Lymph % (Auto) 28.1, Beckham % (Auto) 10.5 H, Eos % (Auto) 4.8, Baso % (Auto) 0.8, Absolute Neuts (auto) 4.8, Absolute Lymphs (auto) 2.43, Nucleated RBC % 0, Sodium 140, Potassium 3.8, Chloride 112 H, Carbon Dioxide 27.0, Anion Gap 1 L, BUN 10, Creatinine 0.84, Estim Creat Clear Calc 74.51, Est GFR (MDRD) Af Amer 91, Est GFR (MDRD) Non-Af 76, BUN/Creatinine Ratio 11.8, Glucose 104, Calcium 8.6, Total Bilirubin 2.10 H, AST 157 H, ALT 116 H, Alkaline Phosphatase 142 H, Total Protein 7.0, Albumin 2.7 L, Globulin 4.3 H, Albumin/Globulin Ratio 0.6 L Physical Exam Narrative Physical Examination: General: Awake but fatigued, alert intermittently primarily with discussions, oriented x 3 and cooperative, laying in the MS bed, fatigued and lethargic, intermittently in the restroom for long peers of time prior to intervention today with more sedate appearance following. Skin: Normal color, normal turgor, no icterus, no cyanosis except occasional stage ecchymoses HEENT: AT/NC, EOMI, PERRLA, mildly dry MM. Lungs: Diminished, greater bases, poor effort, no rales, rhonchi or wheezing Heart: Currently regular rate and rhythm; no gallop, rub audible. Abdomen: Soft, no grimacing with palpation or any rebound or guarding, does not appear distended, no fluid wave, hyperactive BS. Extremities: No cyanosis, clubbing, or marked edema. Neurological: Patient awake but fatigued, alert intermittently primarily with discussion, oriented as noted, cognitive function intact; pupils equally reactive to light and accommodation, cranial nerves grossly normal, moving all 4 extremities, no focal deficits, strength moderately global decreased given suspected illicit substance use. Psychiatric: Affect appears more sedate, lethargic, no acute evidence of depressive or anxiety feelings but does have underlying history. Assessment & Plan Assessment/Plan (1) Hydronephrosis with renal calculous obstruction: (2) Acute right flank pain: PLAN: Plan The patient is a 48 y/o F w/ PMHx: Obesity, Anxiety and Depression/Bipolar disorder, Polysubstance abuse, Chronic pain syndrome, Chronic anemia/Fe deficiency anemia, SUMAYA noncompliant with PAP therapy, GERD, Hx nephrolithiasis, GERD, Chronic migraines, COPD, Tobacco use, Chronic thrombocytopenia, EtOH abuse/Chronic Hepatitis C with cirrhotic liver disease who presents to the [facility] ED on 05/13/2024 with right flank discomfort and hematuria in addition to complaints of abdominal fullness and weight gain with routine paracentesis outpatient x 2 days prompting eventual ED evaluation. #1. Acute obstructive uropathy with right renal and distal ureteral stones with hydroureteronephrosis with 0.8 cm stone noted in the lower pole of the right kidney and right distal ureteral region: CT abdomen pelvis with right renal and distal ureteral stones with hydronephrosis, admitted to medical surgical floor, urology consulted with planned right sided stent and cystoscopy however unfortunately patient noncompliant and AMA ate and drink prior to procedure thus transitioned procedure to 05/15/24 now status post cystoscopy and right ureteral stent placement per Dr. Dawson. Following operative intervention discussed plan of care with urology and they were amenable to patient being discharged to home with again plan for double strength Bactrim twice daily x 5 days based on most recent urine culture although again the growth was not marked but patient did have E. coli and MRSA 11,000-25,000 colony-forming units but certainly could be colonized. Patient will follow-up with urology in 1 week as well as encouraged early follow-up with PCP. #2. History alcohol abuse/chronic hepatitis C with underlying cirrhotic liver disease associated: Patient with routine paracenteses at least monthly, abdominal ultrasound per radiology performed however despite patient complaint of abdominal fullness and weight gain no marked fluid thus paracentesis deferred. Encouraged continued outpatient follow-up with GI/PCP as previously arranged. Maintained on spironolactone, Lasix, not on any Xifaxan or lactulose per current list. #3. Polysubstance abuse, history of alcohol abuse with associated chronic thrombocytopenia: Encouraged complete sobriety as patient per list does drink an occasional alcoholic beverage but less than previously, UDS with positive amphetamine, MDMA, cannabis which is also been noted previously. Encourage clean status, sober status however unfortunately during admission suspected that patient was taking illicit substances based on behavior and finding unlabeled pills in her room. Admission CBC with platelets 60, repeat 71, similar to baseline-> 05/15/2024 CBC with WBC 8.7, hemoglobin 0.3, MCV at 91, platelets 71. #4. Chronic anemia/iron deficiency anemia: Admission hemoglobin 12.7, MCV 90.3, follow-up 11.2-> 05/15/2024 hemoglobin 11.3, baseline more recently appears primarily 08-07, continue iron supplementation. #5. Chronic COPD: Not on any chronic regimen, encouraged tobacco cessation, PRN albuterol, HOB, IS parameters. #6. Tobacco Abuse: Encouraged cessation, inpatient consultation per RT, NR if desired. #7. Hypertension: Continue home regimen including spironolactone, Lasix with hold parameters as needed, PRN hydralazine. #8. Hyperlipidemia: Per current list on a regimen, defer to outpatient. #9. Anxiety and Depression/Bipolar disorder: Continue patient home BuSpar as well as Effexor home regimen, encourage continued outpatient follow-up/therapy as previously recommended/arranged. #10. Chronic migraines: We will continue patient home Topamax regimen. #11. Obesity: Weight loss and lifestyle changes encouraged. #12. SUMAYA: Noncompliant with PAP therapy. #13. GERD: We will keep patient on PPI. #14. DVT prophylaxis: SCDs. Charges/Coding Visit Charges Inpatient E&M: 79937 Subs Hosp L2
--- NOTE | 2024-05-15 10:47 | CASEMGMT ---
Social Work- Pt was once again nodding/slumping and cognitively impaired; appearing under the influence. Pt was walking the hallways, but when standing still, would immediately begin slumping. Pt did not know where her room was. Pt was intermittently able to quasi-respond to questions. SHELL spoke with bedside RN & charge nurse. MIRIAM Clemente
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
--- NOTE | 2024-05-15 11:08 | PCM.PRE.AN2 ---
ASA Classification* ASA Classification ASA Classification: 3 Assessment & Plan Anesthesia* Anesthesia Assessment Anesthesia Assessment: Discussed sedation and/or anesthesia options, risks, benefits, and alternatives with patient/parents/legal guardian/POA. Questions invited. The patient/parents/legal guardian/POA seems to understand and agrees to proceed with anesthesia plan. Reviewed the physical assessment, medical history, allergy history and patient home medications list prior to surgery/procedure/anesthetic and documented any changes. Performed airway and anesthesia risk assessments. Anesthesia Type Anesthesia Type: MAC History Source History Obtained from:: Patient (Patient appears very drowsy. Had to wake her up several times to answer questions. When she is awake she is oriented x 3.) and Chart Anesthesia Focused Assessment* Temperature: 98.3 F Pulse Rate: 62 Blood Pressure: 106/83 Respiratory Rate: 18 Pulse Ox: 98 Oxygen Delivery Method: Room Air Airway Assessment Mouth opens: >3 cm Mallampati Score: II Teeth Condition: Missing (Patient is edentulous.) Neck Range of motion (ROM): Full ROM Focused Labs Anesthesia Preop lab: CBC WBC 8.7 K/mm3 (4.4-11.0) 05/15/24 06:00 RBC 3.68 M/mm3 (4.2-5.4) L 05/15/24 06:00 Hgb 11.3 g/dL (12.0-15.0) L 05/15/24 06:00 Hct 33.5 % (37-47) L 05/15/24 06:00 Plt Count 71 K/mm3 (150-450) L 05/15/24 06:00 CHEMISTRY Potassium 3.8 mmol/L (3.5-5.1) 05/15/24 06:00 Sodium 140 mmol/L (136-145) 05/15/24 06:00 Magnesium 1.6 mg/dL (1.6-2.6) 05/14/24 04:10 Phosphorus 3.5 mg/dL (2.5-4.9) 05/14/24 04:10 BUN 10 mg/dL (7-18) 05/15/24 06:00 Creatinine 0.84 mg/dL (0.55-1.02) 05/15/24 06:00 Glucose 104 mg/dL (74-106) 05/15/24 06:00 TSH 1.66 uIU/mL (0.358-3.74) 04/12/24 07:10 COAG PT 18.4 SECONDS (11.7-14.9) H 05/14/24 04:10 Urine Test Negative Negative 11/07/23 08:22 Pre-Assessment Diagnosis/Proposed Procedure Planned Operative Procedure(s): Cystoscopy with right ureteral stent placement. Anesthesia History Anesthesia History - lube attendant: Anesthesia History - lube attendant Hx Hospitalization Yes: 11/2023 PARACENTISIS 12/26/23 11:09 Any Problems With Anesthesia No 12/26/23 11:09 Cholinesterase deficiency No 12/26/23 11:09 You/Your Family Experience No 12/26/23 11:09 fever (hyperthermia) with Relationship Recent Exposure to Contagious No 12/28/23 08:52 Disease Does patient have nerve No 12/26/23 11:09 stimulator Patient instructed to have device shut off --Does patient have Pacemaker or ICD? When Was Last Pacemaker Check QUESTION #4 FULL TEXT: You/Your Family Experience fever (hyperthermia) with Anesthesia Last Oral Intake Last Oral intake: Last Oral Intake NPO since Meds taken in AM with sips of water? Meds patient instructed to take am of surgery Any additional information?: Yes NPO since: 00:00 (sips of red juice this am) PONV PONV - lube attendant: PONV - lube attendant Female HX of Motion Sickness HX of N/V After Surgery Non-Smoker Duration of Surgery greater than 60 minutes Number of Risk Factors PONV Score Height & Weight Height & Weight: Anesthesia: Height & Weight Height 5 ft 2 in 05/13/24 13:21 Weight: 72.121 kg 05/13/24 13:21 Body Mass Index (BMI) 29.0 05/13/24 13:21 Respiratory Assessment Respiratory Assessment - lube attendant: Respiratory Tract Infection Hx - lube attendant Hx Respiratory Tract Infection No 12/26/23 11:09 STOP Sleep Apnea STOP Sleep Apnea - lube attendant: STOP Sleep Apnea - lube attendant Hx Hypertension No 05/13/24 13:21 Hx Sleep Apnea Yes 05/13/24 13:21 CPAP No 05/13/24 13:21 BIPAP No 05/13/24 13:21 Do you snore loudly (louder than talking or can be heard Do you often feel tired/ fatigued/ sleepy during daytime? Has anyone observed you stop breathing during sleep? STOP Results Positive 05/13/24 13:21 QUESTION #5 FULL TEXT : Do you snore loudly (louder than talking or can be heard through closed doors)? 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 Specify any problems Hx of Preganancy in last 3 No 05/13/24 13:21 Months Nurse Filling Out Transfusion TWOLF 05/13/24 13:21 & Questions: Date: 05/13/24 05/13/24 13:21 Time: 13:24 05/13/24 13:21 Patient unable to answer at this time (ie. confused, unrespo /Reproduction History /Reproductive History - lube attendant: /Reproductive Hx- lube attendant Hx Now Gestational Age (in weeks): EDC: Hx Hx Para Hx Section SAB No 12/26/23 11:09 Active Medications Active Medications: Current Medications Generic Name Dose Route Start Last Admin Trade Name Freq PRN Reason Stop Dose Admin Bacitracin 1 applic 05/14/24 22:17 05/15/24 06:54 Bacitracin 15 Gm Tube TOPICAL 1 applic BID [facility] Administration Protocol Buspirone HCl 10 mg 05/13/24 14:00 05/15/24 09:35 Buspirone 5 Mg Tablet PO Not Given 4X/DAY NELIA Ferrous Sulfate 325 mg 05/14/24 08:00 05/15/24 09:35 Ferrous Sulfate 325 Mg Tablet PO Not Given DAILYCM NELIA Furosemide 40 mg 05/14/24 10:00 05/15/24 09:36 Furosemide 40 Mg Tablet PO Not Given DAILY [facility] Protocol Gabapentin 100 mg 05/13/24 22:00 05/15/24 09:36 Gabapentin 100 Mg Capsule PO Not Given Q12 [facility] Heparin Sodium (Porcine) 5,000 unit 05/13/24 22:00 05/15/24 09:36 Heparin Injection (Vial) 5,000 Unit/Ml Vial SC Not Given Q12 NELIA Hydromorphone HCl 0.5 - 1 mg 05/13/24 13:18 05/15/24 03:01 Hydromorphone 1 Mg/Ml Syringe IV 0.5 mg Q3H PRN PRN Administration Pain Score 6-10 Sodium Chloride 250 mls @ 15 mls/hr 05/13/24 13:29 IV .[id number] PRN Additional IVPB Infusion Sodium Chloride 250 mls @ 15 mls/hr 05/13/24 13:29 IV .[id number] PRN Saline Flush Lactated Ringer's 1,000 mls @ 15 mls/hr 05/15/24 11:00 IV .Q48H NELIA Melatonin 5 mg 05/13/24 22:00 05/14/24 22:56 Melatonin 10 Mg Tablet PO 5 mg QHS NELIA Administration Ondansetron HCl 4 mg 05/13/24 13:18 05/14/24 06:20 Ondansetron 4 Mg/2 Ml Vial IV 4 mg Q8H PRN PRN Administration NAUSEA/VOMITING Oxycodone HCl 10 mg 05/13/24 13:18 05/15/24 04:45 Oxycodone 5 Mg Tablet PO 10 mg Q4H PRN PRN Administration Pain Score 4-10 Pantoprazole Sodium 40 mg 05/14/24 10:00 05/15/24 09:36 Pantoprazole Sodium 40 Mg Tablet PO Not Given DAILY NELIA Potassium Chloride 20 meq 05/14/24 08:00 05/15/24 09:35 Potassium Chloride Oral Tablet 20 [facility] Sodium Chloride 10 - 40 ml 05/13/24 13:29 05/15/24 03:02 0.9% Saline Lock 10 Ml Syringe IV 10 ml UD PRN Administration SALINE FLUSH Spironolactone 50 mg 05/13/24 22:00 05/15/24 09:35 Spironolactone 50 Mg Tablet PO Not Given BID [facility] Protocol Topiramate 50 mg 05/14/24 10:00 05/15/24 09:36 Topiramate 50 Mg Tablet PO Not Given DAILY [facility] Venlafaxine HCl 37.5 mg 05/14/24 10:00 05/15/24 09:36 Venlafaxine Xr 37.5 Mg Capsule PO Not Given DAILY [facility] Medical History Bipolar disorder Anxiety Depression Kidney stones Sleep apnea Complete edentulism, class III Alcohol abuse Chronic pain GERD (gastroesophageal reflux disease) Restless legs Iron deficiency anemia Hyperbilirubinemia Substance abuse Marijuana use MRSA infection History of renal disease Low iron Anemia Hepatitis Migraine headache Seizures History of diverticulitis COPD (chronic obstructive pulmonary disease) Smoker Obesity Thrombocytopenia Polysubstance abuse Cirrhosis of liver Anxiety and depression Hepatitis C, chronic Home Medications ?Medication ?Instructions ?Recorded ?Last Taken ?Type gabapentin 100 mg capsule 100 mg PO Q12H nerve pain 07/20/23 Unknown History albuterol sulfate 90 mcg/actuation 2 puff inhalation Q4H PRN PRN 12/04/23 Unknown History aerosol inhaler (Ventolin HFA) shortness of breath or wheezing ascorbate calcium (vitamin C) 500 500 mg PO DAILY vitamin 12/04/23 05/13/24 History mg tablet ferrous sulfate 325 mg (65 mg 325 mg PO DAILY supplement 12/04/23 Unknown History iron) tablet (FeroSul) buspirone 10 mg tablet 10 mg PO 4X/DAY ANXIETY 04/11/24 05/13/24 History desvenlafaxine succinate 50 mg 50 mg PO DAILY 04/11/24 Unknown History tablet,extended release 24 hr melatonin 5 mg tablet 5 mg PO QHS 04/11/24 Unknown History topiramate 50 mg tablet 50 mg PO DAILY 04/11/24 Unknown History cefdinir 300 mg capsule 300 mg PO BID #14 caps 04/13/24 Unknown Rx furosemide 40 mg tablet (Lasix) 40 mg PO DAILY DIURETIC #30 tabs 04/13/24 05/13/24 Rx spironolactone 50 mg tablet 50 mg PO BID #60 tabs 04/13/24 Unknown Rx cephalexin 500 mg capsule 500 mg PO Q6 INFECTION #40 CAPSULES 04/24/24 05/13/24 Rx pantoprazole 40 mg tablet,delayed 40 mg PO DAILY #30 tabs 05/11/24 Unknown Rx release (Protonix) Allergy/AdvReac Type Severity Reaction Status Date / Time bupropion HCl (From Allergy SEIZURES Verified 05/13/24 09:41 Wellbutrin) codeine Allergy Rash Verified 05/13/24 09:41 Family History Mother Diabetes Father Cancer HX Throat CA. Surgical History History of abdominal paracentesis H/O tubal ligation History of liver biopsy Social History adopted: No household members: family housing: other number of children: 3 current occupational status: unemployed pets and animals: Yes history of recent travel: No sexually active: Yes Smoking Status: Current every day smoker tobacco type: cigarettes second hand exposure: Yes alcohol intake: current alcohol intake frequency: a few times a month substance use type: former substance user Date of last use: heroin, marijuana, heroin and methamphetamine seatbelt use: always do you feel safe at home: Yes Review of Systems (Anesthesia) ROS Narrative System reviewed and no additional complaints, except as documented.
[2024-05-15] MEDS: Lactated Ringers 1,000 ML 15 ML IV (11:21)
--- NOTE | 2024-05-15 11:22 | NURSING ---
new wrist band placed on patient
--- NOTE | 2024-05-15 11:36 | NURSING ---
Pre-op: Noted 4+ pitting edema to BLE
[2024-05-15] MEDS: Cefazolin 2 GM in 0.9% Normal Saline (100mL Bag) 100 ML IV (12:14)
--- NOTE | 2024-05-15 12:29 | OP.PCM_ITS ---
Report of Operation Date of Procedure: 05/15/24 Pre-Operative Diagnosis: Obstructing right ureteral calculi Post-Operative Diagnosis: The same Surgery/Procedure Performed:: Cystoscopy right stent placement Description of Surgical Findings:: Patient was taken back to the operating room after induction of general anesthesia, the patient was placed in dorsolithotomy position. The urethra and genitals were prepped and draped in usual sterile fashion. Using a 21 [place] rigid cystourethroscope the entire length of the urethra was normal then went into the bladder. Identified the trigone the left and right ureteral orifice. I then cannulated the right ureteral orifice and advanced a wire up into the kidney. I then backloaded a 5 [place] open ended catheter over the wire and injected contrast to delineate the anatomy. After the retrograde was performed I then used fluoroscopic images and guidance to advanced a wire up into the kidney and over the 0.038 glidewire I advanced a 6 [place] by 26 cm double pigtail stent. I then pulled the 0.038 Glidewire off and the stent coiled in the kidney bladder good position. The bladder was then drained. We confirmed the position of the stent by fluoroscopy. Patient anesthetic was reversed and was taken back to the PACU in good condition. Surgeon: Farzad Dawson Type of Anesthesia: General Drains: stent Estimated Blood Loss (mL): 0 Admit VTE Documentation VTE Present on Admission: No VTE Mechan Device Prophylaxis: SCD's VTE Pharm Prophylaxis ordered?: No
--- NOTE | 2024-05-15 12:41 | PCM.POST.ANE ---
Anesthesia: Postop Eval I Current Vital Signs Temperature: 97.8 F Pulse Rate: 64 Blood Pressure: 106/68 Respiratory Rate: 14 Pulse Ox: 100 Oxygen Delivery Method: Room Air Assessment Airway patent: Yes Spontaneous unlabored respirations: Yes Mental status: Awake and Calm nausea: No Vomiting: No Anesthesia Complication: No Fluid Hydration Crystalloid volume administer (ml): 200 Total IV fluid infused: 200 Progress Note Anesthesia document: Postop Eval 1 completed: Yes
--- NOTE | 2024-05-15 13:25 | DS.PCM_ITS ---
Providers Date of Admission: 05/13/24 Primary Care Physician: Dr. Ang Acosta MD Consultations 05/13/24 13:18 Consult: Urology Routine Consulting Provider: Farzad Dawson Reason for Consult: right hydronephrosis EMERGENT Consult: No MD Notified: Yes Date Notified: 05/13/24 Time Notified: 12:30 Method of Notification: Verbal Reason For Visit: HYDRONEPHROSIS, RIGHT URETERAL OBSTRUCTION Diagnosis Discharge Diagnosis (1) Hydronephrosis with renal calculous obstruction: Status: Acute Code(s): N13.2 - Hydronephrosis with renal and ureteral calculous obstruction (2) Acute right flank pain: Status: Acute Code(s): R10.9 - Unspecified abdominal pain Plan The patient is a 48 y/o F w/ PMHx: Obesity, Anxiety and Depression/Bipolar disorder, Polysubstance abuse, Chronic pain syndrome, Chronic anemia/Fe deficiency anemia, SUMAYA noncompliant with PAP therapy, GERD, Hx nephrolithiasis, GERD, Chronic migraines, COPD, Tobacco use, Chronic thrombocytopenia, EtOH abuse/Chronic Hepatitis C with cirrhotic liver disease who presents to the [facility] ED on 05/13/2024 with right flank discomfort and hematuria in addition to complaints of abdominal fullness and weight gain with routine paracentesis outpatient x 2 days prompting eventual ED evaluation. #1. Acute obstructive uropathy with right renal and distal ureteral stones with hydroureteronephrosis with 0.8 cm stone noted in the lower pole of the right kidney and right distal ureteral region: CT abdomen pelvis with right renal and distal ureteral stones with hydronephrosis, admitted to medical surgical floor, urology consulted with planned right sided stent and cystoscopy however unfortunately patient noncompliant and AMA ate and drink prior to transition to procedure 05/14/2020 4 AM, will again maintain n.p.o. status after midnight for planned reattempt 05/15/2024 at noon, will continue hydration, pain regimen and antiemetic regimen as needed. #2. History alcohol abuse/chronic hepatitis C with underlying cirrhotic liver disease associated: Patient with routine paracenteses at least monthly, abdominal ultrasound per radiology performed however despite patient complaint of abdominal fullness and weight gain no marked fluid thus paracentesis deferred. Encourage continued outpatient follow-up with GI/PCP as previously arranged. Will continue patient home spironolactone, Lasix, not on any Xifaxan or lactulose per current list. #3. Polysubstance abuse, history of alcohol abuse with associated chronic thrombocytopenia: Encouraged complete sobriety as patient per list does drink an occasional alcoholic beverage but less than previously, UDS with positive amphetamine, MDMA, cannabis which is also been noted previously. Encourage clean status, sober status. Suspect this presentation likely contributing to her irritable, restless behavior. Admission CBC with platelets 60, repeat 71, similar to baseline, continue to trend. #4. Chronic anemia/iron deficiency anemia: Admission hemoglobin 12.7, MCV 90.3, follow-up 11.2, baseline more recently appears primarily 08-07, will continue to trend CBC, continue iron supplementation. #5. Chronic COPD: Not on any chronic regimen, encouraged tobacco cessation, PRN albuterol, HOB, IS parameters. #6. Tobacco Abuse: Encouraged cessation, inpatient consultation per RT, NR if desired. #7. Hypertension: Continue home regimen including spironolactone, Lasix with hold parameters as needed, PRN hydralazine. #8. Hyperlipidemia: Per current list on a regimen, defer to outpatient. #9. Anxiety and Depression/Bipolar disorder: Continue patient home BuSpar as well as Effexor home regimen, encourage continued outpatient follow-up/therapy as previously recommended/arranged. #10. Chronic migraines: We will continue patient home Topamax regimen. #11. Obesity: Weight loss and lifestyle changes encouraged. #12. SUMAYA: Noncompliant with PAP therapy. #13. GERD: We will keep patient on PPI. #14. DVT prophylaxis: SCDs. Medications at Discharge Home Medications gabapentin 100 mg capsule 100 mg PO Q12H nerve pain 07/20/23 albuterol sulfate 90 mcg/actuation aerosol inhaler (Ventolin HFA) 2 puff inhalation Q4H PRN PRN shortness of breath or wheezing 12/04/23 ascorbate calcium (vitamin C) 500 mg tablet 500 mg PO DAILY vitamin 12/04/23 ferrous sulfate 325 mg (65 mg iron) tablet (FeroSul) 325 mg PO DAILY supplement 12/04/23 buspirone 10 mg tablet 10 mg PO 4X/DAY ANXIETY 04/11/24 desvenlafaxine succinate 50 mg tablet,extended release 24 hr 50 mg PO DAILY 04/11/24 melatonin 5 mg tablet 5 mg PO QHS 04/11/24 topiramate 50 mg tablet 50 mg PO DAILY 04/11/24 furosemide 40 mg tablet (Lasix) 40 mg PO DAILY DIURETIC #30 tabs 04/13/24 spironolactone 50 mg tablet 50 mg PO BID #60 tabs 04/13/24 pantoprazole 40 mg tablet,delayed release (Protonix) 40 mg PO DAILY #30 tabs 05/11/24 bacitracin zinc 500 unit/gram topical ointment 1 applic topical BID 14 days #1 tube 05/15/24 sulfamethoxazole 800 mg-trimethoprim 160 mg tablet (Bactrim DS) 1 tab PO BID #10 tabs 05/15/24 Weight / BMI Weight Weight: 159 lb Body Mass Index (BMI) 29.0 ABG / Lab / Microbiology Data 05/15/24 06:00 05/15/24 06:00 Laboratory: Laboratory Results - last 24 hr 05/15/24 06:00: WBC 8.7, RBC 3.68 L, Hgb 11.3 L, Hct 33.5 L, MCV 91.0, MCH 30.7, MCHC 33.7, RDW Std Deviation 62.2 H, RDW Coeff of Katalina 19.2 H, Plt Count 71 L, MPV 11.6, Immature Gran % (Auto) 0.600, Neut % (Auto) 55.2, Lymph % (Auto) 28.1, Ponce % (Auto) 10.5 H, Eos % (Auto) 4.8, Baso % (Auto) 0.8, Absolute Neuts (auto) 4.8, Absolute Lymphs (auto) 2.43, Nucleated RBC % 0, Sodium 140, Potassium 3.8, Chloride 112 H, Carbon Dioxide 27.0, Anion Gap 1 L, BUN 10, Creatinine 0.84, Estim Creat Clear Calc 74.51, Est GFR (MDRD) Af Amer 91, Est GFR (MDRD) Non-Af 76, BUN/Creatinine Ratio 11.8, Glucose 104, Calcium 8.6, Total Bilirubin 2.10 H, AST 157 H, ALT 116 H, Alkaline Phosphatase 142 H, Total Protein 7.0, Albumin 2.7 L, Globulin 4.3 H, Albumin/Globulin Ratio 0.6 L Microbiology: Microbiology 05/13/24 09:42 Urine, Clean Catch Urine Culture - Final Presumptive Lactobacillus sp. Radiography Diagnostic Testing: Radiology Impression Abdomen Ultrasound 05/14/24 07:00 IMPRESSION: Not enough fluid for safe paracentesis. Electronically Signed: Isidro Burnett MD at 8:17 EDT , D/C Instructions Discharge Diet: Low fat / Low cholesterol May resume sexual activity in: - (When cleared per Urology at follow-up.) Weight Bearing Status: Weight bearing as tolerated Call your doctor if you observe: Fever of 101 or Higher, Inability to urinate, Shortness of breath, Dizziness, Chest pain, Increased palpitations (irregular heartbeat), Calf discomfort and Uncontrolled pain Meaningful Use Info Ischemic Stroke Statin Dosing Therapy Reference: STATIN DOSE THERAPY REFERENCE: * Patients > 75 years receive moderate or high dose statin therapy. * Patients 75 years or YOUNGER should receive HIGH intensity statin dose unless contraindicated. You will be required to document reason for non-treatment if statin daily dose does not meet guidelines. HIGH DOSE STATIN THERAPY DAILY Atorvastatin > than or = to 40 mg Rosuvastatin > than or = to 20 mg Amlodipine + Atorvastatin > than or = to 2.5/40 mg Ezetimibe + Simvastatin 10/80 mg Simvastatin 80mg Discharge Plan Admission Admit Date/Time: 05/13/24 12:23 Primary Reason for Your Visit: Acute obstructive uropathy w/ nephrolithiasis, Low suspicion UTI Attending Provider: Sowmya Mirza Primary Care Provider: Ang Acosta Consulting Providers: Farzad Dawson; Ang Shelton Instructions Patient Instructions: Kidney Stone (Urine), Having a Ureteral Stent Additional Instructions / Restrictions: ADDITIONAL DISCHARGE INSTRUCTIONS/PLAN OF CARE: Acute obstructive uropathy with right renal and distal ureteral stones with hydroureteronephrosis with 0.8 cm stone noted in the lower pole of the right kidney and right distal ureteral region: --CT abdomen pelvis with right renal and distal ureteral stones with hydronephrosis. --05/15/24 right sided stent and cystoscopy however unfortunately patient noncompliant. --Recent 04/24/24 Urine culture w/ E. Coli and MRSA however growth 11,000-25,000 but following discussion with Urology per his preference will discharge to home on 5 days of twice daily bactrim regimen given recent intervention. 05/13/24 culture with lactobacillus growth noted 50,000-80,000. History alcohol abuse/Polysubstance abuse/chronic hepatitis C with underlying cirrhotic liver disease associated: --Attempted paracentesis unsuccessful as no marked fluid to remove. Please continue to follow outpatient with gastroenterology/PCP. Encourage sobriety and clean status. Continue to trend complete metabolic panel outpatient as previously arranged. Discharge Orders/Prescriptions Prescriptions: New bacitracin zinc 500 unit/gram Ointment 1 applic topical BID 14 Days Qty: 1 0RF Protocol: *Topical Application Instructions APPLICATION INSTRUCTIONS: affected area Rx Instructions: Apply to chin wound and BL foot wounds. Avoid picking skin. sulfamethoxazole-trimethoprim [Bactrim DS] 800-160 mg tablet 1 tab PO BID Qty: 10 0RF Continued gabapentin 100 mg capsule 100 mg PO Q12H Patient Comments: Take 1 capsule by mouth twice daily pt taking as needed. albuterol sulfate [Ventolin HFA] 90 mcg/actuation HFA aerosol inhaler 2 puff inhalation Q4H PRN PRN (Reason: shortness of breath or wheezing) ferrous sulfate [FeroSul] 325 mg (65 mg iron) tablet 325 mg PO DAILY ascorbate calcium (vitamin C) 500 mg tablet 500 mg PO DAILY buspirone 10 mg tablet 10 mg PO 4X/DAY topiramate 50 mg tablet 50 mg PO DAILY desvenlafaxine succinate 50 mg tablet extended release 24 hr 50 mg PO DAILY melatonin 5 mg tablet 5 mg PO QHS spironolactone 50 mg Tablet 50 mg PO BID Qty: 60 1RF furosemide [Lasix] 40 mg tablet 40 mg PO DAILY Qty: 30 0RF Rx Instructions: start on 04/14/24 pantoprazole [Protonix] 40 mg tablet,delayed release (DR/EC) 40 mg PO DAILY Qty: 30 0RF Discontinued cephalexin 500 mg capsule 500 mg PO Q6 Qty: 40 0RF cefdinir 300 mg capsule 300 mg PO BID Qty: 14 0RF Rx Instructions: start on 04/13/24 Referrals / Follow Up: Farzad Dawson MD [Med Staff - Active Staff] - (Follow-up in 1 week to be re-evaluated s/p ureteral stent placement.) Ang Acosta MD [Primary Care Provider] - (Please follow-up within 3-5 days to review admission.) Disposition Disposition (needs filled in before D/C Order can be placed): Home, Self Care
--- NOTE | 2024-05-15 14:35 | CASEMGMT ---
TC to [facility], they are unable to transport pt home this date.
--- NOTE | 2024-05-15 15:16 | CASEMGMT ---
Social Work- SW met with pt who states that she is able to return to [facility], feels safe there, and states that she will need transport there. Pt states that she is working with a caseworker through [employer] on permanent housing. Pt has d/c. SW called [id number] and spoke with Mae to set up transport. Pt will be picked up at 4:4PM by vehicle [id number], a blue and white van. Confirmation #: [id number]. [id number] will call [facility] floor and pt 5 minutes prior to arrival at the main entrance. [facility] nurse advised. Pt advised and provided with vehicle information. Pt reports no additional needs. MIRIAM Clemente
--- NOTE | 2024-05-15 17:28 | POSTOPAN2_ITS ---
Anesthesia Postop Eval I Sum Postop Eval Completion status Anesthesia document: Postop Eval 1 completed: Yes Anesthesia Postop Eval I Summary Anesthesia Postop Eval I Summary: Anesthesia Postop Eval I: Assessment Summary Airway patent Yes 05/15/24 12:42 [email or web address] Spontaneous unlabored Yes 05/15/24 12:42 [email or web address] [email or web address] respirations Mental status Awake,Calm 05/15/24 12:42 [email or web address] [email or web address] nausea No 05/15/24 12:42 [email or web address] [email or web address] Vomiting No 05/15/24 12:42 [email or web address] Anesthesia Postop Eval I: Fluid Summary Crystalloid volume administer 200 05/15/24 12:42 [email or web address] (ml) Colloids volume administered ( ml) Blood Product volume administered (ml) Total IV fluid infused 200 05/15/24 12:42 [email or web address] Anesthesia Postop Eval I: Summary Notes Anesthesia Complication No 05/15/24 12:42 [email or web address] Anesthesia Complication Comment: Post-operative progress note Anesthesia: Postop Eval II Evaluation Mental status: Awake Pain Level: 0 nausea: No Vomiting: No Complications Anesthesia Complication: No
--- NOTE | 2024-05-15 17:28 | PCM.POSTANE2 ---
Anesthesia Postop Eval I Sum Postop Eval Completion status Anesthesia document: Postop Eval 1 completed: Yes Anesthesia Postop Eval I Summary Anesthesia Postop Eval I Summary: Anesthesia Postop Eval I: Assessment Summary Airway patent Yes 05/15/24 12:42 ENERGY EFFICIENT [email or web address] [email or web address] Spontaneous unlabored Yes 05/15/24 12:42 ENERGY EFFICIENT [email or web address] [email or web address] respirations Mental status Awake,Calm 05/15/24 12:42 ENERGY EFFICIENT [email or web address] [email or web address] nausea No 05/15/24 12:42 ENERGY EFFICIENT [email or web address] [email or web address] Vomiting No 05/15/24 12:42 ENERGY EFFICIENT [email or web address] Anesthesia Postop Eval I: Fluid Summary Crystalloid volume administer 200 05/15/24 12:42 ENERGY EFFICIENT [email or web address] [email or web address] (ml) Colloids volume administered ( ml) Blood Product volume administered (ml) Total IV fluid infused 200 05/15/24 12:42 ENERGY EFFICIENT [email or web address] [email or web address] Anesthesia Postop Eval I: Summary Notes Anesthesia Complication No 05/15/24 12:42 ENERGY EFFICIENT [email or web address] [email or web address] Anesthesia Complication Comment: Post-operative progress note Anesthesia: Postop Eval II Evaluation Mental status: Awake Pain Level: 0 nausea: No Vomiting: No Complications Anesthesia Complication: No
== END 2024-05-15 16:57 | disposition home or self-care (01) | DRG 463 ==
LOC: ED 09:14 → MS3 12:38
PROVIDERS: Anesthesiology; Urology; Admitting Provider Internal Medicine; Emergency Provider Emergency Medicine; PCP Family Medicine; Visit Provider Family Medicine
PROC: 0T768DZ Dilation of Right Ureter with Intraluminal Device, Via Natural or Artificial Opening Endoscopic (ICD-10-PCS; CPT 52332; principal; 2024-05-15 11:50)
DX: N13.6 Pyonephrosis (principal); D69.6 Thrombocytopenia, unspecified; R18.8 Other ascites; D50.9 Iron deficiency anemia, unspecified; B18.2 Chronic viral hepatitis C; F17.210 Nicotine dependence, cigarettes, uncomplicated; F31.9 Bipolar disorder, unspecified; J44.9 Chronic obstructive pulmonary disease, unspecified; F19.10 Other psychoactive substance abuse, uncomplicated; I10 Essential (primary) hypertension; E66.9 Obesity, unspecified; K74.60 Unspecified cirrhosis of liver; E78.5 Hyperlipidemia, unspecified; G47.33 Obstructive sleep apnea (adult) (pediatric); K21.9 Gastro-esophageal reflux disease without esophagitis; G43.709 Chronic migraine without aura, not intractable, without status migrainosus; F41.9 Anxiety disorder, unspecified; K52.9 Noninfective gastroenteritis and colitis, unspecified; B95.62 Methicillin resistant Staphylococcus aureus infection as the cause of diseases classified elsewhere; R31.9 Hematuria, unspecified; Z91.199 Patient's noncompliance with other medical treatment and regimen due to unspecified reason; T47.3X6A Underdosing of saline and osmotic laxatives, initial encounter; Z91.148 Patient's other noncompliance with medication regimen for other reason; Z79.899 Other long term (current) drug therapy; B96.20 Unspecified Escherichia coli [E. coli] as the cause of diseases classified elsewhere; R45.1 Restlessness and agitation; G89.4 Chronic pain syndrome; Z68.29 Body mass index [BMI] 29.0-29.9, adult; Z53.09 Procedure and treatment not carried out because of other contraindication
CPT/HCPCS: 36415; 74177; 76000; 76705; 80048; 80053; 80076; 80307; 81001; 82140; 83690; 83735; 84100; 85025; 85610; 85730; 87086; 87088; 93005; 96361; 96365; 96375; 99283; 99284; J7030; J7120; Q9967; A4216; C1769; C2617; J2405

== ENCOUNTER 2024-05-17 11:16 | Inpatient (IN) | payer MEDICAID, SELFPAY ==
[2024-05-17] VITALS (8 sets, daily range): BP systolic 97–142; BP diastolic 53–90; PULSE 56–98; RESP 14–18; TEMP 36.8–37.2; O2SAT 97–100; BMI 30.4; BMI 29.9
[2024-05-17 12:52] LABS: Absolute Lymphocyte Count 1.18 X10^3/uL (0.83-4.51); Absolute Neutrophil Count 5.1 X10^3/uL (2.0-7.7); Basophil# 0.05 X10^3/uL; Basophil% 0.7 % (0-1); Eosinophil# 0.14 X10^3/uL; Hematocrit 36.4 % (37-47); Hemoglobin 11.9 g/dL (12.0-15.0); Lymphocyte # 1.18 X10^3/ul (0.83-4.51); Lymphocyte % 17.1 % (19-41); Mean Corp Hgb Conc 32.7 g/dL (32-36); Mean Corpuscular Hgb 30.1 pg (27.0-32.0); Mean Corpuscular Volume 92.2 fL (81-99); Mean Platelet Vol. 12.3 fl (6.2-12.0); Monocyte# 0.44 X10^3/uL; Monocyte% 6.4 % (0-10); NRBC Flagged by Analyzer 0 % (0-5); Neutrophil # 5.08 X10^3/uL (2.7-7.7); Neutrophil % 73.5 % (47-70); POSITIVE COUNT YES; Platelet Count 72 K/mm3 (150-450); RBC Distribution Width CV 19.7 % (11.6-14.6); RBC Distribution Width SD 64.7 fl (35.1-43.9); Red Blood Count 3.95 M/mm3 (4.2-5.4); White Blood Count 6.9 K/mm3 (4.4-11.0)
[2024-05-17 13:08] LABS: ALB/GLOB Ratio 0.6 RATIO (0.9-2.4); AST(SGOT) 196 U/L (15-37); Alanine Aminotransfer ALT/SGPT 124 U/L (13-56); Albumin, Serum 2.6 g/dL (3.2-5.0); Alkaline Phosphatase 152 U/L (45-117); Anion Gap 3 (5-15); BUN 12 mg/dL (7-18); BUN/Creat Ratio 12.5 RATIO (10-20); Calcium,Total 9.1 mg/dL (8.5-10.1); Chloride 111 mmol/L (98-107); Creatinine, Serum 0.96 mg/dL (0.55-1.02); EST Glomerular Filtration Rate 65 mL/min (>60); Est Glom Filt Rate - Afr Amer 79 mL/min (>60); Estimated Creatinine Clearance 66.69 ml/min; Globulin 4.5 g/dL (2.2-4.2); Glucose 131 mg/dL (74-106); Lipase 69 U/L (13-75); Potassium 4.2 mmol/L (3.5-5.1); Protein, Total 7.1 g/dL (6.4-8.2); Sodium Level 138 mmol/L (136-145)
[2024-05-17 14:03] LABS: Mucous, Urine 0 SEEN /hpf (<or=2+)
[2024-05-17] MEDS: Morphine 4 MG/ML Syringe IM (14:03)
[2024-05-17] MEDS: Ondansetron ODT 4 MG Tablet PO (14:03)
[2024-05-17 14:06] LABS: Color, Urine Brown (Yellow); Glucose, Dipstick Normal (Normal); Ketone-Dipstick 5 mg/dl (Negative); Leukocyte Esterase-Dipstick 100 /ul (Negative); Nitrite-Dipstick Negative (Negative); Occult Blood-Urine 250 /ul (Negative); Protein-Dipstick 100 mg/dl (Negative); Specific Gravity, Urine 1.015 (1.002-1.030); Urine Clarity Cloudy (Clear); Urine Urobilinogen 8 mg/dl (Normal)
[2024-05-17 14:07] LABS: Urine Bilirubin Dipstick 1 mg/dL (Negative)
--- NOTE | 2024-05-17 14:13 | ED.RN ---
DR AWARE UNABLE TO OBTAIN IV AFTER MULTIPLE STICKS. PT WANTING TO TALK TO DR ABOUT ALTERNATIVE PLAN. MEDS CHANGED TO IM/ODT. TO EVALUATED BLOOD WORK RESULTS DO DETERMINE IF CT CAN BE DONE WITHOUT CONTRAST PER DR CHRISTOPHER.
[2024-05-17 14:16] LABS: Bacteria 1+ /hpf (None Seen); Coarse Granular Cast 0-5 SEEN /lpf (0-5 /lpf); Red Blood Cells-Urine 50-100 SEEN /hpf (0-5); Squamous Epithelial Cells - UA 5-10 SEEN /hpf (5-10); White Blood Cells 25-50 SEEN /hpf (0-5)
[2024-05-17 14:17] LABS: Renal Epithelial Cells 0-5 SEEN /hpf (0-5)
--- NOTE | 2024-05-17 15:57 | CT_ITS ---
INDICATION: right flank pain EXAMINATION: CT ABDOMEN AND PELVIS WITHOUT CONTRAST - CT Abdomen And Pelvis W/O Contrast Injection TECHNIQUE: Helically acquired images were obtained of the abdomen and pelvis without oral or IV contrast. A radiation dose optimization technique was used for this scan. IV Contrast dosage and agent: None. Oral contrast: None. RADIATION DOSAGE (If Supplied By Facility): CTDIvol = ( 10.12 ) mGy, DLP = ( 566.52 ) mGycm COMPARISON: 05/13/2024 FINDINGS: LOWER CHEST: 1. Lung bases are clear. 2. No cardiomegaly or pericardial effusion. 3. No significant coronary vascular calcifications. LIVER: Liver is small in size lobulated contour consistent with cirrhotic changes. No intrahepatic masses. No ductal dilatation. No focal mass. GALLBLADDER AND BILIARY TREE: No calcified gallstones. No gallbladder distension or wall edema. No intra- or extrahepatic biliary ductal dilation. PANCREAS: No focal cystic or solid mass. SPLEEN: Spleen is large. No focal splenic masses. ADRENAL GLANDS: No nodules. KIDNEYS AND URETERS: Kidneys have normal configuration, there is hydronephrosis and hydroureter on the RIGHT. There is a RIGHT ureteral stent in unchanged position. Coarse calcification is present at the RIGHT UVJ however the stent passes into the bladder. There is mild residual hydronephrosis however there has been mild improvement. There is a coarse calcification in the lower pole of the RIGHT kidney, measuring approximately 8 mm. PERITONEUM: Moderate to large amount of ascites is noted. No free air. No abscess collection. No other fluid collection. BOWEL: Large small bowel loops have normal configuration. No bowel obstruction. No stomach or bowel distension. No focal inflammatory change. The appendix is not positively identified. LYMPH NODES: No enlarged mesenteric or retroperitoneal lymph nodes. VESSELS: Aorta is non-dilated. URINARY BLADDER: RIGHT ureteral stent projects within the bladder. REPRODUCTIVE ORGANS: Tubal ligation clips are present. Uterus has normal appearance. ABDOMINAL WALL: No discrete abdominal or pelvic wall hernia. BONES: No lytic or blastic abnormality. CT/Abdomen/Pelvis without Cont IMPRESSION: 1. RIGHT ureteral stent has been placed in the interval projecting in normal position. There is a coarse calcification at the RIGHT UVJ, stent passes adjacent to the ureteral stone. 2. There is mild residual RIGHT pelviectasis and RIGHT extrarenal pelvis. Coarse calcification is present in the lower pole of the RIGHT kidney measuring 8 mm.. 3. No masses or bowel obstruction. Moderate to large amount of ascites. 4. Cirrhotic liver and splenomegaly is present. 5. No evidence cholelithiasis. 6. Tubal ligation rings are in place. Uterus and pelvic sidewalls have normal appearance. Electronically Signed: Osmin Garcia MD at 16:32 EDT ,
[2024-05-17] MEDS: Morphine 4 MG/ML Syringe IV ×2 (17:27→18:46)
[2024-05-17] MEDS: Ondansetron 4 MG/2 ML Vial IV (17:27)
[2024-05-17] MEDS: 0.9% Normal Saline (1000mL) 1,000 ML 999 ML IV (17:27)
--- NOTE | 2024-05-17 18:40 | PCM.HP.STD ---
[facility] - General General Date of Service: 05/17/24 Chief Complaint: Severe right flank pain, chills today. Also shortness of breath from abdominal swelling. [facility] Narrative CAROLINA HIGHTOWER, is a 48 F were discharged on 05/15 about 2 days ago after management of acute obstructive uropathy due to right renal and distal ureteral stone with hydroureteronephrosis by stone 0.8 cm that required ureteroscopy and stenting by urologist came back with severe right flank pain, localized 10/10 intensity, unbearable and was given IV morphine 4 mg in the ED. Patient has dark concentrated urine output. She was treated with IV antibiotic inpatient and discharged on Bactrim DS for UTI, urine culture 11,000?25,000 CFU E. coli and MRSA on 04/24/2024. Repeat urine culture on 05/13/2024 did not show growth. She said she felt chills and freezing but has not measured fever at home. She did not pick up man prescription of Bactrim DS. She also has increased abdominal swelling and felt like she cannot breathe. Complain of leg swelling but leg is not edematous on exam. She has history of cirrhosis decompensated with ascites, jaundice and severe thrombocytopenia In ED, BP 139/86, 142/87. IV ceftriaxone and 4 mg morphine 2 prescribed by ED physician. I ordered Lasix 40 mg 1 dose now for increased ascites. [facility] Medical History Bipolar disorder Anxiety Depression Kidney stones Sleep apnea Complete edentulism, class III Alcohol abuse Chronic pain GERD (gastroesophageal reflux disease) Restless legs Iron deficiency anemia Hyperbilirubinemia Substance abuse Marijuana use MRSA infection History of renal disease Low iron Anemia Hepatitis Migraine headache Seizures History of diverticulitis COPD (chronic obstructive pulmonary disease) Smoker Obesity Thrombocytopenia Polysubstance abuse Cirrhosis of liver Anxiety and depression Hepatitis C, chronic Home Medications ?Medication ?Instructions ?Recorded ?Last Taken ?Type gabapentin 100 mg capsule 100 mg PO Q12H nerve pain 07/20/23 05/16/24 History albuterol sulfate 90 mcg/actuation 2 puff inhalation Q4H PRN 12/04/23 05/16/24 History aerosol inhaler (Ventolin HFA) shortness of breath or wheezing ascorbate calcium (vitamin C) 500 500 mg PO DAILY vitamin 12/04/23 05/16/24 History mg tablet ferrous sulfate 325 mg (65 mg 325 mg PO DAILY supplement 12/04/23 05/16/24 History iron) tablet (FeroSul) buspirone 10 mg tablet 10 mg PO 4X/DAY ANXIETY 04/11/24 05/16/24 History desvenlafaxine succinate 50 mg 50 mg PO DAILY 04/11/24 05/16/24 History tablet,extended release 24 hr melatonin 5 mg tablet 5 mg PO QHS 04/11/24 05/16/24 History topiramate 50 mg tablet 50 mg PO DAILY 04/11/24 05/16/24 History furosemide 40 mg tablet (Lasix) 40 mg PO DAILY DIURETIC #30 tabs 04/13/24 05/16/24 Rx spironolactone 50 mg tablet 50 mg PO BID #60 tabs 04/13/24 05/16/24 Rx pantoprazole 40 mg tablet,delayed 40 mg PO DAILY #30 tabs 05/11/24 05/16/24 Rx release (Protonix) bacitracin zinc 500 unit/gram 1 applic topical BID 14 days #1 05/15/24 05/16/24 Rx topical ointment tube sulfamethoxazole 800 1 tab PO BID #10 tabs 05/15/24 Unknown Rx mg-trimethoprim 160 mg tablet (Bactrim DS) aripiprazole 10 mg tablet 10 mg PO DAILY 05/17/24 05/16/24 History fluticasone propionate 50 1 spray intranasal Q12H PRN 05/17/24 Unknown History mcg/actuation nasal allergy symptoms spray,suspension Allergy/AdvReac Type Severity Reaction Status Date / Time bupropion HCl (From Allergy SEIZURES Verified 05/17/24 11:17 Wellbutrin) codeine Allergy Rash Verified 05/17/24 11:17 Family History Mother Diabetes Father Cancer HX Throat CA. Surgical History History of abdominal paracentesis H/O tubal ligation History of liver biopsy Social History adopted: No household members: family housing: other number of children: 3 current occupational status: unemployed pets and animals: Yes history of recent travel: No sexually active: Yes Smoking Status: Current every day smoker tobacco type: cigarettes second hand exposure: Yes alcohol intake: current alcohol intake frequency: a few times a month substance use type: former substance user Date of last use: heroin, marijuana, heroin and methamphetamine seatbelt use: always do you feel safe at home: Yes ROS ROS Narrative Constitutional: Reports acute onset of chronic fatigue and generalized weakness. No documented fever but chills HEENT: Reports systems reviewed and no addt'l complaints, except as documented Respiratory/Chest: Reported acute shortness of breath due to abdominal swelling stated could not take deep breath CVS: No chest pain pressure or tightness Gastrointestinal: Denies coffee ground emesis, hematemesis or melena Genitourinary: Concentrated small amount of urine. [place] burning sensation mild in nature. Rest as described in HPI Musculoskeletal: Denies acute joint pain or limited range of motion. No acute injury. Has chronic pain. Neurologic: Denies seizure-like symptoms. No acute or strokelike symptoms. skin: No ulcer. No rash Endocrinology: Reports systems reviewed and no addt'l complaints, except as documented Hematologic/Lymphatic: Reports systems reviewed and no addt'l complaints, except as documented Rest 14 ROS are negative except as mentioned in HPI Vital Signs Vital Signs Vital Signs: 05/17/24 11:16 05/17/24 12:30 05/17/24 14:00 Temperature 99 F Temperature Source Temporal Pulse Rate 82 98 Respiratory Rate 14 18 Respiratory Effort Normal Respiratory Pattern Normal Blood Pressure 139/86 H 142/87 H Blood Pressure Mean 103 105 Pulse Ox 99 97 Oxygen Delivery Method Room Air 05/17/24 16:00 05/17/24 18:00 Temperature Temperature Source Pulse Rate 70 89 Respiratory Rate 18 18 Respiratory Effort Respiratory Pattern Blood Pressure 97/53 L 103/78 Blood Pressure Mean 67 86 Pulse Ox 100 97 Oxygen Delivery Method Room Air Weight Weight: 166 lb 7.184 oz Body Mass Index (BMI) 30.4 Physical Exam Narrative General: Alert, Oriented x3, Cooperative. Obesity grade 130.4 kg/m?. Possible more fluid weight with third volume spacing HEENT: Atraumatic, PERRLA, EOMI, Normocephalic Oral: No Gingival or Mucosal Lesions/ Ulcerations Neck: Supple, No JVD, Negative Carotid Bruits Chest wall/Lungs: Air entry diminished in bilateral lung bases. No crepitation/rhonchi/wheezing Cardiovascular: Regular rate, Regular Rhythm, Normal S1, Normal S2, No M/G/R Abdomen: Bowel Sounds sluggish. Soft distended. Fluid thrill/shifting dullness present. Moderate to severe ascites. : Severe right flank tenderness. No renal angle tenderness. No suprapubic tenderness. Extremities: No significant. Edema, Capillary Refill Less than 3 Seconds Skin: No rashes, No breakdown Musculoskeletal: No Tenderness to Palpation of Joints or Extremities Neurological: Cranial nerves II-XII grossly intact, DTR 2+/4. No acute focal neurological deficit. Psych/Mental Status: Flat affect Results Lab / Micro Data 05/17/24 12:45 05/17/24 12:45 Labs: Laboratory Results - last 24 hr 05/17/24 12:45: WBC 6.9, RBC 3.95 L, Hgb 11.9 L, Hct 36.4 L, MCV 92.2, MCH 30.1, MCHC 32.7, RDW Std Deviation 64.7 H, RDW Coeff of [place] 19.7 H, Plt Count 72 L, MPV 12.3 H, Immature Gran % (Auto) 0.300, Neut % (Auto) 73.5 H, Lymph % (Auto) 17.1 L, [place] % (Auto) 6.4, Eos % (Auto) 2.0, Baso % (Auto) 0.7, Absolute Neuts (auto) 5.1, Absolute Lymphs (auto) 1.18, Nucleated RBC % 0, Sodium 138, Potassium 4.2, Chloride 111 H, Carbon Dioxide 24.0, Anion Gap 3 L, BUN 12, Creatinine 0.96, Estim Creat Clear Calc 66.69, Est GFR (MDRD) Af Amer 79, Est GFR (MDRD) Non-Af 65, BUN/Creatinine Ratio 12.5, Glucose 131 H, Calcium 9.1, Total Bilirubin 1.70 H, AST 196 H, ALT 124 H, Alkaline Phosphatase 152 H, Total Protein 7.1, Albumin 2.6 L, Globulin 4.5 H, Albumin/Globulin Ratio 0.6 L, Lipase 69 05/17/24 13:58: Urine Color Brown, Urine Clarity Cloudy, Urine pH 8.0, Ur Specific [place] 1.015, Urine Protein 100 H, Urine Glucose (UA) Normal, Urine Ketones 5 H, Urine Occult Blood 250 H, Urine Nitrite Negative, Urine Bilirubin 1 H, Urine Urobilinogen 8 H, Ur Leukocyte Esterase 100 H, Urine RBC 50-100 SEEN, Urine WBC 25-50 SEEN, Ur Squamous Epith Cells 5-10 SEEN, Ur Renal Epithelial Cell 0-5 SEEN, Urine Bacteria 1+, Coarse Granular Casts 0-5 SEEN, Urine Mucus 0 SEEN Imaging Radiology Impression Abdomen/Pelvis CT 05/17/24 15:57 IMPRESSION: 1. RIGHT ureteral stent has been placed in the interval projecting in normal position. There is a coarse calcification at the RIGHT UVJ, stent passes adjacent to the ureteral stone. 2. There is mild residual RIGHT pelviectasis and RIGHT extrarenal pelvis. Coarse calcification is present in the lower pole of the RIGHT kidney measuring 8 mm.. 3. No masses or bowel obstruction. Moderate to large amount of ascites. 4. Cirrhotic liver and splenomegaly is present. 5. No evidence cholelithiasis. 6. Tubal ligation rings are in place. Uterus and pelvic sidewalls have normal appearance. Electronically Signed: Osmin Garcia MD at 16:32 EDT , Assessment & Plan Assessment/Plan (1) Acute right flank pain: (2) Ascites of liver: PLAN: Plan This 48-year-old female with multiple comorbidities came to ER within 2 days of discharge for severe right flank pain, chills, mild burning micturition, increased ascites and shortness of breath 1. Recent obstructive uropathy due to right renal and distal ureteral stones with hydroureteronephrosis with 0.8 cm stone with low suspicion of UTI: Patient is being admitted on [facility] floor. Patient had urine culture on 04/24/2024 which grew 11,000?25,000 colonies of E. coli and MRSA but most recent repeat urine culture on 05/13/2024 shows presumptive lactobacillus 50,000?18,000 therefore possible skin contamination but not pathologic organism or in pathology colony count: Patient did not fill her prescription of Bactrim DS. Started on IV ceftriaxone after urine culture collection in ED. UA shows WBC 25-50 cells, LE 100, nitrite negative and 1+ bacteria. RBC 50-100 cells, squamous epithelial 5-10 cells therefore not ideal urine collection. CT abdomen/pelvis individually reviewed shows recent right ureteral stent, passing Adisyn to the ureteral stone with mild residual right pelviectasis and right extrarenal pelvis with 8 mm coarse calcification. Follow-up in urology clinic Dr. Dawson as mentioned in the last discharge summary 2. Chronic decompensated alcoholic and chronic hepatitis C cirrhosis with ascites, jaundice, hepatic encephalopathy and thrombocytopenia: Patient not adherent to her medication regimen and has not followed with GI office too. Her ascites has increased therefore furosemide 40 mg IV 1 dose now and then 40 mg twice daily from tomorrow a.m. Continue spironolactone home dose 50 mg twice daily. Continue lactulose and Xifaxan. She has routine paracentesis ordered at least monthly. Patient also drinks alcohol few times in a month 3. Chronic mixed iron deficiency and anemia of chronic disease: On ferrous sulfate and ascorbic acid continue 4. COPD with continued smoking: DuoNeb as needed. Incentive spirometry. Not on maintenance inhaler at home. Advised follow-up with pulmonary clinic. Patient has been advised several times to quit smoking but still smokes. 5. Hypertension: Monitor BP. Currently normotensive. 6. Anxiety, depression and bipolar disorder: Patient on aripiprazole, buspirone and Effexor at home. Continue with holding parameters for lethargy and sedation. 7. Chronic migraine: Continue home Topamax as prophylactic agent. 8. Dyslipidemia and obesity grade 1: Patient weight might be increased due to ascites. [employer] Worker consult. Patient not on statin 9. Obstructive sleep apnea, nonadherent to CPAP. 10. GERD: Continue PPI. 11. DVT prophylaxis: Pharmacological prophylaxis contraindicated due to severe thrombocytopenia, platelet count 72,000. Bilateral SCDs Living will/advanced directive/end of life care: Patient does not have living will or advanced directive. After discussion of benefits/risks procedures involved with full code, DNR CC arrest and DNR CC, the patient opted for full code. Patient does want artificial life support including intubation, tube feed, ventilator and/chest compression, central venous catheter, vasopressor and DC shock if needed Total time spent in [id number] encounter in discussion of advanced directive 17 minutes. Laboratory Results 05/17/24 12:45: WBC 6.9, RBC 3.95 L, Hgb 11.9 L, Hct 36.4 L, MCV 92.2, MCH 30.1, MCHC 32.7, RDW Std Deviation 64.7 H, RDW Coeff of [place] 19.7 H, Plt Count 72 L, MPV 12.3 H, Immature Gran % (Auto) 0.300, Neut % (Auto) 73.5 H, Lymph % (Auto) 17.1 L, [place] % (Auto) 6.4, Eos % (Auto) 2.0, Baso % (Auto) 0.7, Absolute Neuts (auto) 5.1, Absolute Lymphs (auto) 1.18, Nucleated RBC % 0, Sodium 138, Potassium 4.2, Chloride 111 H, Carbon Dioxide 24.0, Anion Gap 3 L, BUN 12, Creatinine 0.96, Estim Creat Clear Calc 66.69, Est GFR (MDRD) Af Amer 79, Est GFR (MDRD) Non-Af 65, BUN/Creatinine Ratio 12.5, Glucose 131 H, Calcium 9.1, Total Bilirubin 1.70 H, AST 196 H, ALT 124 H, Alkaline Phosphatase 152 H, Total Protein 7.1, Albumin 2.6 L, Globulin 4.5 H, Albumin/Globulin Ratio 0.6 L, Lipase 69 05/17/24 13:58: Urine Color Brown, Urine Clarity Cloudy, Urine pH 8.0, Ur Specific [place] 1.015, Urine Protein 100 H, Urine Glucose (UA) Normal, Urine Ketones 5 H, Urine Occult Blood 250 H, Urine Nitrite Negative, Urine Bilirubin 1 H, Urine Urobilinogen 8 H, Ur Leukocyte Esterase 100 H, Urine RBC 50-100 SEEN, Urine WBC 25-50 SEEN, Ur Squamous Epith Cells 5-10 SEEN, Ur Renal Epithelial Cell 0-5 SEEN, Urine Bacteria 1+, Coarse Granular Casts 0-5 SEEN, Urine Mucus 0 SEEN, Urine Test Pending Clinical Impression(s) from Imaging Studies Abdomen/Pelvis CT 05/17/24 15:57 IMPRESSION: 1. RIGHT ureteral stent has been placed in the interval projecting in normal position. There is a coarse calcification at the RIGHT UVJ, stent passes adjacent to the ureteral stone. 2. There is mild residual RIGHT pelviectasis and RIGHT extrarenal pelvis. Coarse calcification is present in the lower pole of the RIGHT kidney measuring 8 mm.. 3. No masses or bowel obstruction. Moderate to large amount of ascites. 4. Cirrhotic liver and splenomegaly is present. 5. No evidence cholelithiasis. 6. Tubal ligation rings are in place. Uterus and pelvic sidewalls have normal appearance. Electronically Signed: Osmin Garcia MD at 16:32 EDT , Charges/Coding Visit Charges Inpatient E&M: 88230 Init Hosp L3 Procedures Hospitalists Procedures: 71267 Advncd Care Plan 30 Min
[2024-05-17] MEDS: Ceftriaxone 1 GM/50 ML BAG IV (18:44)
[2024-05-17] MEDS: Furosemide 40 MG/4 ML Vial IV (19:10)
--- NOTE | 2024-05-17 19:30 | EDS_ITS ---
HPI History of Present Illness Chief Complaint: Flank Pain Narrative Narrative: Patient is a 48-year-old female with a past medical history of bipolar disorder, anxiety, depression, alcohol abuse, substance abuse, hepatitis C, thrombocytopenia, cirrhosis who presented to the emergency department with a chief complaint of right-sided flank pain. Patient states that she had a recent stent placed for a kidney stone and feels that she is doing worse now than she was prior to stent placement prompting her to come back for further evaluation management. Patient states that she has had chills but denies any fevers. Patient states that she has not been taking her Bactrim that she was prescribed as she was unable to pick this up. Patient rates her pain a 9 out of 10 on exam. Patient states that she does have nausea associated with this [facility] Medical History Bipolar disorder Anxiety Depression Kidney stones Sleep apnea Complete edentulism, class III Alcohol abuse Chronic pain GERD (gastroesophageal reflux disease) Restless legs Iron deficiency anemia Hyperbilirubinemia Substance abuse Marijuana use MRSA infection History of renal disease Low iron Anemia Hepatitis Migraine headache Seizures History of diverticulitis COPD (chronic obstructive pulmonary disease) Smoker Obesity Thrombocytopenia Polysubstance abuse Cirrhosis of liver Anxiety and depression Hepatitis C, chronic Home Medications ?Medication ?Instructions ?Recorded ?Last Taken ?Type gabapentin 100 mg capsule 100 mg PO Q12H nerve pain 07/20/23 05/16/24 History albuterol sulfate 90 mcg/actuation 2 puff inhalation Q4H PRN 12/04/23 05/16/24 History aerosol inhaler (Ventolin HFA) shortness of breath or wheezing ascorbate calcium (vitamin C) 500 500 mg PO DAILY vitamin 12/04/23 05/16/24 History mg tablet ferrous sulfate 325 mg (65 mg 325 mg PO DAILY supplement 12/04/23 05/16/24 History iron) tablet (FeroSul) buspirone 10 mg tablet 10 mg PO 4X/DAY ANXIETY 04/11/24 05/16/24 History desvenlafaxine succinate 50 mg 50 mg PO DAILY 04/11/24 05/16/24 History tablet,extended release 24 hr melatonin 5 mg tablet 5 mg PO QHS 04/11/24 05/16/24 History topiramate 50 mg tablet 50 mg PO DAILY 04/11/24 05/16/24 History furosemide 40 mg tablet (Lasix) 40 mg PO DAILY DIURETIC #30 tabs 04/13/24 05/16/24 Rx spironolactone 50 mg tablet 50 mg PO BID #60 tabs 04/13/24 05/16/24 Rx pantoprazole 40 mg tablet,delayed 40 mg PO DAILY #30 tabs 05/11/24 05/16/24 Rx release (Protonix) bacitracin zinc 500 unit/gram 1 applic topical BID 14 days #1 05/15/24 05/16/24 Rx topical ointment tube sulfamethoxazole 800 1 tab PO BID #10 tabs 05/15/24 Unknown Rx mg-trimethoprim 160 mg tablet (Bactrim DS) aripiprazole 10 mg tablet 10 mg PO DAILY 05/17/24 05/16/24 History fluticasone propionate 50 1 spray intranasal Q12H PRN 05/17/24 Unknown History mcg/actuation nasal allergy symptoms spray,suspension Allergy/AdvReac Type Severity Reaction Status Date / Time bupropion HCl (From Allergy SEIZURES Verified 05/17/24 11:17 Wellbutrin) codeine Allergy Rash Verified 05/17/24 11:17 Family History Mother Diabetes Father Cancer HX Throat CA. Surgical History History of abdominal paracentesis H/O tubal ligation History of liver biopsy Social History adopted: No household members: family housing: other number of children: 3 current occupational status: unemployed pets and animals: Yes history of recent travel: No sexually active: Yes Smoking Status: Current every day smoker tobacco type: cigarettes second hand exposure: Yes alcohol intake: current alcohol intake frequency: a few times a month substance use type: former substance user Date of last use: heroin, marijuana, heroin and methamphetamine seatbelt use: always do you feel safe at home: Yes ROS ROS ED ROS Narrative Constitutional: Complains of chills denies any fevers, headaches, lightness, dizziness Eyes: Denies change in vision double vision blurry vision Cardiovascular: Denies chest pain or palpitations Respiratory: Denies coughing wheezing shortness of breath Abdomen: Complains of nausea vomiting denies abdominal pain or diarrhea : Denies any urinary symptoms Neurological: Denies numbness, weakness, tingling Musculoskeletal: Complains of back pain/flank pain as noted above Skin: Denies rashes or lesions EXAM Physical Exam Narrative Exam Narrative: General: Patient lying in bed did appear uncomfortable secondary to pain Head: Atraumatic, normocephalic Eyes: PERRL bilaterally, EOMI bilateral, no conjunctival injection noted Neck: Soft, supple, trachea midline Cardiovascular: Regular in rhythm no murmurs gallops rubs are noted Respiratory: Clear to auscultation bilaterally Abdomen: Soft, nondistended, no tenderness palpation, no rebound or guarding on exam Musculoskeletal: Patient has CVA tenderness on the right side Extremities: No pedal edema on exam, +5/5 strength noted in the bilateral upper and lower extremities Neurological: Patient was following commands and that she is at [facility] year is 2023 Skin: Warm dry, intact Const Vital Signs: 05/17/24 11:16 05/17/24 12:30 05/17/24 14:00 Temperature 99 F Temperature Source Temporal Pulse Rate 82 98 Respiratory Rate 14 18 Respiratory Effort Normal Respiratory Pattern Normal Blood Pressure 139/86 H 142/87 H Blood Pressure Mean 103 105 Pulse Ox 99 97 Oxygen Delivery Method Room Air 05/17/24 16:00 05/17/24 18:00 Temperature Temperature Source Pulse Rate 70 89 Respiratory Rate 18 18 Respiratory Effort Respiratory Pattern Blood Pressure 97/53 L 103/78 Blood Pressure Mean 67 86 Pulse Ox 100 97 Oxygen Delivery Method Room Air MDM MDM MDM Narrative Medical decision making narrative: Patient is a 48-year-old female who presented to the emergency department chief complaint of right-sided flank pain. Patient will have a workup performed here on the differential diagnose includes but not limited to UTI, pyelonephritis, obstructing stone, stent malposition. Once workup is obtained reviewed she will be reevaluated. Patient will be given morphine and Zofran as well as IV fluids for hydration. Patient CBC reviewed and was largely unremarkable no leukocytosis noted white blood count normal at 6.9, hemoglobin stable 11.9, platelet count was noted to be low which she is chronically thrombocytopenic at 72, patient's sodium normal 130, potassium normal 4.2, creatinine normal at 0.96. Patient's AST and ALT are 196 and 124 respectively these are chronically elevated as well as her total bilirubin is chronic elevated to 1.70. Patient's urinalysis showed 100 leukocyte esterase 25-50 white blood cells per high-power field with 50-100 red blood cells and 1+ bacteria seen she was given a gram Rocephin this was sent for culture. Patient's CT abdomen pelvis was reviewed as well which showed right ureteral stent has been placed with in the interval projecting in normal position there is coarse calcification at the right UVJ stent passes adjacent to the ureteral stone. Pelviectasis coarse calcification present in the lower pole of the right kidney measuring 8 mm which when compared to previous CT abdomen pelvis this is roughly the same. No masses or bowel obstruction moderate to large amount of ascites noted. Cirrhotic liver and splenomegaly are present. No evidence cholelithiasis. Tubal ligation rings are in place Did discuss the case with the on-call urologist who placed the stent Dr. Dawson who is recommending Pyridium for symptom control as this is likely secondary to stent placement. On reevaluation the patient she states that she is in too much pain and cannot go home. Did discuss case with hospitalist Dr. Adams who will admit the patient for intractable back pain and nausea. Patient is agreeable this plan all question concerns were answered at bedside. Lab Data Labs: Laboratory Results - last 24 hr 05/17/24 05/17/24 12:45 13:58 WBC 6.9 RBC 3.95 L Hgb 11.9 L Hct 36.4 L MCV 92.2 MCH 30.1 MCHC 32.7 RDW Std Deviation 64.7 H RDW Coeff of Katalina 19.7 H Plt Count 72 L MPV 12.3 H Immature Gran % (Auto) 0.300 Neut % (Auto) 73.5 H Lymph % (Auto) 17.1 L [place] % (Auto) 6.4 Eos % (Auto) 2.0 Baso % (Auto) 0.7 Absolute Neuts (auto) 5.1 Absolute Lymphs (auto) 1.18 Nucleated RBC % 0 Sodium 138 Potassium 4.2 Chloride 111 H Carbon Dioxide 24.0 Anion Gap 3 L BUN 12 Creatinine 0.96 Estim Creat Clear Calc 66.69 Est GFR (MDRD) Af Amer 79 Est GFR (MDRD) Non-Af 65 BUN/Creatinine Ratio 12.5 Glucose 131 H Calcium 9.1 Total Bilirubin 1.70 H AST 196 H ALT 124 H Alkaline Phosphatase 152 H Total Protein 7.1 Albumin 2.6 L Globulin 4.5 H Albumin/Globulin Ratio 0.6 L Lipase 69 Urine Color Brown Urine Clarity Cloudy Urine pH 8.0 Ur Specific [place] 1.015 Urine Protein 100 H Urine Glucose (UA) Normal Urine Ketones 5 H Urine Occult Blood 250 H Urine Nitrite Negative Urine Bilirubin 1 H Urine Urobilinogen 8 H Ur Leukocyte Esterase 100 H Urine RBC 50-100 SEEN Urine WBC 25-50 SEEN Ur Squamous Epith Cells 5-10 SEEN Ur Renal Epithelial Cell 0-5 SEEN Urine Bacteria 1+ Coarse Granular Casts 0-5 SEEN Urine Mucus 0 SEEN Radiography Diagnostic Testing: Clinical Impression(s) from Imaging Studies Abdomen/Pelvis CT 05/17/24 15:57 IMPRESSION: 1. RIGHT ureteral stent has been placed in the interval projecting in normal position. There is a coarse calcification at the RIGHT UVJ, stent passes adjacent to the ureteral stone. 2. There is mild residual RIGHT pelviectasis and RIGHT extrarenal pelvis. Coarse calcification is present in the lower pole of the RIGHT kidney measuring 8 mm.. 3. No masses or bowel obstruction. Moderate to large amount of ascites. 4. Cirrhotic liver and splenomegaly is present. 5. No evidence cholelithiasis. 6. Tubal ligation rings are in place. Uterus and pelvic sidewalls have normal appearance. Electronically Signed: Osmin Garcia MD at 16:32 EDT , Discharge Plan Triage Chief Complaint: Flank Pain ED Provider: Eddie Newman Dx/Rx/DC Orders Clinical Impression: Intractable back pain, Urolithiasis Primary Care Provider: Ang Acosta
[2024-05-17] MEDS: Spironolactone 50 MG Tablet PO (20:27)
[2024-05-17] MEDS: Gabapentin 100 MG Capsule PO (21:05)
[2024-05-17] MEDS: MELATONIN 10 MG TABLET 5 MG PO (21:06)
[2024-05-17] MEDS: busPIRone 5 MG Tablet 10 MG PO (21:06)
[2024-05-17] MEDS: Senna/Docusate Sodium 1 Tablet 2 TABLET PO (21:10)
[2024-05-18] MEDS: Morphine 2 MG/ML Syringe IV (01:19)
[2024-05-18 03:35] VITALS: BP 103/71; PULSE 55; RESP 18; TEMP 36.4; O2SAT 100
[2024-05-18 07:19] LABS: Internal QC Validated? YES +Cl - CLEAR BKGD; Pregnancy, Urine Negative Negative
[2024-05-18 07:23] LABS: Absolute Lymphocyte Count 2.04 X10^3/uL (0.83-4.51); Absolute Neutrophil Count 4.4 X10^3/uL (2.0-7.7); Basophil# 0.05 X10^3/uL; Basophil% 0.7 % (0-1); Eosinophil# 0.37 X10^3/uL; Eosinophils% 4.9 % (0-5); Hematocrit 33.1 % (37-47); Hemoglobin 10.7 g/dL (12.0-15.0); Lymphocyte # 2.04 X10^3/ul (0.83-4.51); Lymphocyte % 27.3 % (19-41); Mean Corp Hgb Conc 32.3 g/dL (32-36); Mean Corpuscular Hgb 30.2 pg (27.0-32.0); Mean Corpuscular Volume 93.5 fL (81-99); Mean Platelet Vol. 11.1 fl (6.2-12.0); Monocyte# 0.61 X10^3/uL; Monocyte% 8.2 % (0-10); NRBC Flagged by Analyzer 0 % (0-5); Neutrophil # 4.38 X10^3/uL (2.7-7.7); Neutrophil % 58.5 % (47-70); POSITIVE COUNT YES; POSITIVE MORPHOLOGY YES; Platelet Count 69 K/mm3 (150-450); RBC Distribution Width CV 19.4 % (11.6-14.6); RBC Distribution Width SD 65.2 fl (35.1-43.9); Red Blood Count 3.54 M/mm3 (4.2-5.4); White Blood Count 7.5 K/mm3 (4.4-11.0)
[2024-05-18 07:32] LABS: Differential Indicated SCAN CRITERIA MET
[2024-05-18 08:09] LABS: Anisocytosis 1+; Platelet Estimate MOD DEC (ADEQ)
[2024-05-18 08:14] VITALS: O2SAT 96
[2024-05-18 08:29] LABS: AST(SGOT) 162 U/L (15-37); Alanine Aminotransfer ALT/SGPT 106 U/L (13-56); Albumin, Serum 2.3 g/dL (3.2-5.0); Alkaline Phosphatase 129 U/L (45-117); Anion Gap 6 (5-15); BUN 10 mg/dL (7-18); BUN/Creat Ratio 11.5 RATIO (10-20); Calcium,Total 8.2 mg/dL (8.5-10.1); Chloride 110 mmol/L (98-107); Creatinine, Serum 0.87 mg/dL (0.55-1.02); EST Glomerular Filtration Rate 73 mL/min (>60); Est Glom Filt Rate - Afr Amer 89 mL/min (>60); Estimated Creatinine Clearance 72.96 ml/min; Globulin 3.9 g/dL (2.2-4.2); Glucose 124 mg/dL (74-106); Potassium 3.6 mmol/L (3.5-5.1); Protein, Total 6.2 g/dL (6.4-8.2); Sodium Level 140 mmol/L (136-145)
[2024-05-18 10:00] VITALS: BP 116/76; PULSE 60; RESP 16; TEMP 36.4; O2SAT 100
[2024-05-18] MEDS: busPIRone 5 MG Tablet 10 MG PO ×4 (10:35→21:52)
[2024-05-18] MEDS: ARIPiprazole 10 MG Tablet PO (10:35)
[2024-05-18] MEDS: Spironolactone 50 MG Tablet PO ×2 (10:35→21:51)
[2024-05-18] MEDS: Ferrous Sulfate 325 MG Tablet PO (10:35)
[2024-05-18] MEDS: Furosemide 40 MG/4 ML Vial IV ×2 (10:36→17:00)
[2024-05-18] MEDS: Ceftriaxone 1 GM/50 ML BAG IV (10:36)
[2024-05-18] MEDS: Pantoprazole Sodium 40 MG Tablet PO (10:36)
[2024-05-18] MEDS: Gabapentin 100 MG Capsule PO ×2 (10:36→21:53)
[2024-05-18] MEDS: Senna/Docusate Sodium 1 Tablet 2 TABLET PO ×2 (10:36→21:52)
[2024-05-18] MEDS: Topiramate 50 MG Tablet PO (10:36)
[2024-05-18] MEDS: Venlafaxine XR 37.5 MG Capsule PO (10:36)
[2024-05-18] MEDS: Ascorbic Acid 500 MG Tablet PO (10:37)
--- NOTE | 2024-05-18 11:10 | CASEMGMT ---
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 Discussed with pt to receive her rx here at [facility] so she can have this prior to leaving the hospital. Pt is agreeable to this.
--- NOTE | 2024-05-18 11:29 | CASEMGMT ---
SW spoke with patient regarding SDOH trigger. Patient has been in the hospital several times recently and has received packets of resources for food, transportation, and housing. SW spoke with patient. Introduced self and role at [facility]. Patient stated she has all of this information still. Patient then asked SW about assisted living. SW told patient that SW could make a referral to the assisted living waiver program, but this would not happen right away as this is a process. Patient said she does not know where she would go in the meantime. SW asked patient if she is still staying at [facility]. Patient said she is not allowed to go back as she is too much of a health risk. SW asked patient if she would be willing to go to a group home in another [facility] or city? Patient said she has court hearings coming up so she cannot leave [place] or she won't have a way to get back. SW told patient SW will do some checking and get back with her. SHELL called [facility] and spoke with Triny who stated patient is not allowed back. The other day they said she needed to get medical attention or she could not stay at the group home and patient refused medical care. SHELL called [facility] to talk with the welfare case worker patient was working with. Patient's welfare case worker for housing at [facility] is Krista. SW was sent to her voice mailbox which is full. SHELL called [facility] and they currently do not have any beds available, but patient could call so they could at least have record of her calling and if something came up they might be able to help. SHELL will try Krista at [facility] again. SW will give patient the phone number for [facility]. SHELL will also encourage patient to call Krista at [facility]. Yvonne CERRATO
--- NOTE | 2024-05-18 14:12 | PN_ITS ---
Subjective Subjective Patient seen and examined. She still complains of the right flank pain. She denies any burning with urination, any fever or chills or any other symptoms. She did have obstructive uropathy and was admitted and discharged on 05/15/2024 after she had uteroscopy and stenting by her urologist due to a right renal and right distal stone with hydroureteronephrosis. She was discharged with a prescription for p.o. Bactrim but did not even clam picker the medication was started. She came back with the above-mentioned symptoms as well as lower extremity swelling and abdominal swelling. She has been treated for UTI and abdominal ascites. Review of symptoms otherwise negative she has remained hemodynamically stable. Objective Data Objective Data Vital Signs: Vital Signs Temp Pulse Resp BP Pulse Ox O2 Del Method 97.6 F L 60 16 116/76 100 Room Air 05/18/24 10:00 05/18/24 10:00 05/18/24 10:00 05/18/24 10:00 05/18/24 10:00 05/18/24 10:00 Oxygen Delivery Method Room Air Weight: 163 lb 9.328 oz Body Mass Index (BMI) 29.9 Intake & Output: Intake and Output for Last 24 Hours 05/16/24 05/17/24 05/18/24 23:59 23:59 23:59 Intake Total 1050 / 1050 550 / 550 Output Total 500 / 500 Balance 1050 / 850 50 / 50 Medical Nutrition Assessment Dietitian: Malnutrition Criteria Met Start: 05/18/24 14:02 Freq: Status: Active Protocol: Document 05/18/24 14:02 KJ (Rec: 05/18/24 14:02 KJ [id number]) Nutrition Malnutrition Evidence of Malnutrition Exists Yes Malnutrition (severe): Chronic,Social/Behavioral/ Environmental Evidenced By Suboptimal Energy Intake ( Severe),Weight Loss (Severe) Clinical Problem Biting/Chewing Difficulty Etiology related to edentulous Signs/Symptoms as evidenced by pt not having teeth and not wanting mech altered diet consistency Status Active Problem Chronic Disease or Condition Related Malnutrition Etiology related to R flank pain and decreased po intake causing pressure in stomach Signs/Symptoms as evidenced by 18.4% unintended wt loss and po intake meeting <75% 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 Status Active Problem Recommendation Dietitian Recommendations/Changes Will change to liberal regular / no added salt diet d/t signs and symptoms of malnutrition. Will provide 8 oz chocolate CIB w/ meals for increased nutrition if consumed. Lab / Micro Data 05/18/24 06:26 05/18/24 06:26 Labs: Laboratory Results - last 24 hr 05/17/24 13:58: Urine RBC 50-100 SEEN, Urine WBC 25-50 SEEN, Ur Squamous Epith Cells 5-10 SEEN, Ur Renal Epithelial Cell 0-5 SEEN, Urine Bacteria 1+, Coarse Granular Casts 0-5 SEEN, Urine Mucus 0 SEEN, Urine Test Negative 05/18/24 06:26: WBC 7.5, RBC 3.54 L, Hgb 10.7 L, Hct 33.1 L, MCV 93.5, MCH 30.2, MCHC 32.3, RDW Std Deviation 65.2 H, RDW Coeff of Katalina 19.4 H, Plt Count 69 L, MPV 11.1, Immature Gran % (Auto) 0.400, Neut % (Auto) 58.5, Lymph % (Auto) 27.3, [place] % (Auto) 8.2, Eos % (Auto) 4.9, Baso % (Auto) 0.7, Absolute Neuts (auto) 4.4, Absolute Lymphs (auto) 2.04, Nucleated RBC % 0, Platelet Estimate MOD DEC, Anisocytosis 1+, Sodium 140, Potassium 3.6, Chloride 110 H, Carbon Dioxide 24.0, Anion Gap 6, BUN 10, Creatinine 0.87, Estim Creat Clear Calc 72.96, Est GFR (MDRD) Af Amer 89, Est GFR (MDRD) Non-Af 73, BUN/Creatinine Ratio 11.5, Glucose 124 H, Calcium 8.2 L, Total Bilirubin 1.60 H, Direct Bilirubin 0.80 H, AST 162 H , ALT 106 H, Alkaline Phosphatase 129 H, Total Protein 6.2 L, Albumin 2.3 L, Globulin 3.9 Micro: Microbiology 05/17/24 13:58 Urine, Clean Catch Urine Culture - Preliminary Gram negative elida Radiography Diagnostic Testing: Radiology Impression Abdomen/Pelvis CT 05/17/24 15:57 IMPRESSION: 1. RIGHT ureteral stent has been placed in the interval projecting in normal position. There is a coarse calcification at the RIGHT UVJ, stent passes adjacent to the ureteral stone. 2. There is mild residual RIGHT pelviectasis and RIGHT extrarenal pelvis. Coarse calcification is present in the lower pole of the RIGHT kidney measuring 8 mm.. 3. No masses or bowel obstruction. Moderate to large amount of ascites. 4. Cirrhotic liver and splenomegaly is present. 5. No evidence cholelithiasis. 6. Tubal ligation rings are in place. Uterus and pelvic sidewalls have normal appearance. Electronically Signed: Osmin Garcia MD at 16:32 EDT , Physical Exam Const alert, oriented x3 and no apparent distress General Appearance: cooperative and well developed HEENT normocephalic, head/scalp atraumatic, moist oral mucous membranes and oropharynx normal Eyes PERRL and EOMs intact bilaterally Neck no lymphadenopathy and supple Lymph Lymphatic: no lymphadenopathy noted and no lymphedema noted Resp normal respiratory effort, normal air movement and clear to auscultation bilaterally Cardio regular rate, regular rhythm, S1 normal heart sound, S2 normal heart sound and no murmurs Peripheral Pulses: pulses 2+ throughout GI non-tender GI Narrative: mild abdominal distension, positive fluid thrill, no guarding Extremity normal capillary refill and no calf tenderness Extremity Narrative: mil1 + bilateral pedal edema General Extremity: no tenderness to palpation of joints or extremities Skin General Skin Exam: no breakdown Neuro CN's II-XII intact bilaterally, no focal motor deficits, no sensory deficits noted and deep tendon reflexes 2+ bilaterally Motor Exam: strength 5/5 throughout and general weakness Psych thought process normal, cooperative and affect normal Appearance: appropriate Assessment & Plan Assessment/Plan (1) Acute right flank pain: (2) UTI (urinary tract infection): PLAN: Plan #UTI * Recently had right renal and distal right ureteral stones with hydroureteronephrosis and had ureteroscopy with stent. She was discharged with a prescription for Bactrim but did not refill the prescription and came back to the hospital. * Urine cultures from 04/24/2024 grew MRSA and E. coli but repeat urine cultures from 05/13/2024 grew lactobacillus concerning for skin contamination. * Urinalysis with this admission after she came in for right flank pain showed 1+ bacteria. * Currently on IV ceftriaxone. Being hydrated gently with IV fluids. Urine cultures pending. * CT abdomen and pelvis showed a recent right ureteral stent. * #History of chronic alcoholic cirrhosis * Has ascites. Currently on IV Lasix and spironolactone. He is also on lactulose and Xifaxan. * Has regular paracentesis monthly. #Chronic hepatitis C: Treatment na?ve. To follow-up with GI on outpatient basis #Chronic thrombocytopenia: Likely due to chronic liver disease. Will monitor. #COPD: continues to smoke. Counseled to quit smoking. Not in exacerbation. Breathing treatment with bronchodilators. #Anxiety, depression and bipolar disorder: on aripiprazole, buspirone and Effexor. #Chronic migraine: On Topamax as needed. #SUMAYA: Noncompliant with his CPAP. Stable. #GERD: On PPI DVT prophylaxis: SCDs. Not anticoagulated due to thrombocytopenia Charges/Coding Visit Charges Inpatient E&M: 59371 Subs Hosp L2
--- NOTE | 2024-05-18 14:17 | CASEMGMT ---
SHELL called patient's case therapist with [facility]). SHELL explained situation and asked if she had any ideas or thoughts. Krista suggested SW contact [facility]. SHELL called [facility] Housing program and left a message for Sun[place]. SHELL will work on referral to [facility] for the assisted living waiver program. SHELL will also talk with patient to see if her daughter would allow her to stay with her. Yvonne Hartman LIGHT INDUSTRIAL SUPERVISOR SAQIB
[2024-05-18 15:06] VITALS: BP 129/76; PULSE 64; PULSE 70; RESP 16; TEMP 36.8; O2SAT 97
--- NOTE | 2024-05-18 16:03 | CASEMGMT ---
SHELL was informed there is a possibility that patient could get emergency help with jail, but this help is not available over the weekend. SHELL spoke with patient's special education case manager at [facility] and she is aware of the Access to Wellness program. However, she too said it is not available over the weekend. SHELL spoke with patient and she has not made any phone calls to any agencies, acquaintances, or friends in an effort to find somewhere to stay. SHELL informed patient that if she is discharged over the weekend SW is out of options. SHELL explained if she happens to be at [facility] Tuesday SW might be able to assist. SHELL suggested patient make some phone calls. SHELL asked patient if SW could call her daughter and she told SW no. Yvonne Hartman SAND MOLDER SAQIB
[2024-05-18 16:56] VITALS: BP 117/76; PULSE 61
[2024-05-18] MEDS: 0.9% Saline Lock 10 ML Syringe IV (16:57)
[2024-05-18 21:20] VITALS: BP 112/52; PULSE 60; RESP 16; TEMP 36.8; O2SAT 98
[2024-05-18] MEDS: MELATONIN 10 MG TABLET 5 MG PO (21:52)
[2024-05-19] VITALS (7 sets, daily range): BP systolic 96–123; BP diastolic 54–78; PULSE 49–68; RESP 14–16; TEMP 36.6–37; O2SAT 95–100
[2024-05-19 07:02] LABS: Absolute Neutrophil Count 5.6 X10^3/uL (2.0-7.7); Basophil# 0.06 X10^3/uL; Basophil% 0.7 % (0-1); Eosinophil# 0.28 X10^3/uL; Eosinophils% 3.4 % (0-5); Hematocrit 33.1 % (37-47); Hemoglobin 11.2 g/dL (12.0-15.0); Lymphocyte % 19.6 % (19-41); Mean Corp Hgb Conc 33.8 g/dL (32-36); Mean Corpuscular Hgb 30.8 pg (27.0-32.0); Mean Corpuscular Volume 90.9 fL (81-99); Mean Platelet Vol. 11.6 fl (6.2-12.0); Monocyte# 0.62 X10^3/uL; Monocyte% 7.6 % (0-10); NRBC Flagged by Analyzer 0 % (0-5); Neutrophil # 5.57 X10^3/uL (2.7-7.7); Neutrophil % 68.2 % (47-70); POSITIVE COUNT YES; Platelet Count 68 K/mm3 (150-450); RBC Distribution Width CV 18.6 % (11.6-14.6); RBC Distribution Width SD 61.1 fl (35.1-43.9); Red Blood Count 3.64 M/mm3 (4.2-5.4); White Blood Count 8.2 K/mm3 (4.4-11.0)
[2024-05-19 08:20] LABS: Anion Gap 5 (5-15); BUN 10 mg/dL (7-18); BUN/Creat Ratio 13.2 RATIO (10-20); Calcium,Total 8.8 mg/dL (8.5-10.1); Chloride 109 mmol/L (98-107); Creatinine, Serum 0.76 mg/dL (0.55-1.02); EST Glomerular Filtration Rate 86 mL/min (>60); Est Glom Filt Rate - Afr Amer 104 mL/min (>60); Estimated Creatinine Clearance 83.52 ml/min; Glucose 115 mg/dL (74-106); Potassium 3.7 mmol/L (3.5-5.1); Sodium Level 138 mmol/L (136-145)
[2024-05-19] MEDS: 0.9% Saline Lock 10 ML Syringe IV (09:35)
[2024-05-19] MEDS: Furosemide 40 MG/4 ML Vial IV ×2 (09:35→17:00)
[2024-05-19] MEDS: Ferrous Sulfate 325 MG Tablet PO (09:35)
[2024-05-19] MEDS: Ceftriaxone 1 GM/50 ML BAG IV (09:35)
[2024-05-19] MEDS: Ascorbic Acid 500 MG Tablet PO (09:36)
[2024-05-19] MEDS: Spironolactone 50 MG Tablet PO ×2 (09:37→21:14)
[2024-05-19] MEDS: Pantoprazole Sodium 40 MG Tablet PO (09:38)
[2024-05-19] MEDS: Senna/Docusate Sodium 1 Tablet 2 TABLET PO (09:42)
[2024-05-19] MEDS: Topiramate 50 MG Tablet PO (09:43)
[2024-05-19] MEDS: Naloxone 0.4 MG/ML Syringe IV (12:14)
--- NOTE | 2024-05-19 12:20 | PN_ITS ---
Subjective Subjective Patient seen and examined. She had no active complaints when I saw her this morning. Plan was for her to be discharged. However subsequently informed by her nurse that patient was found to be quite lethargic and drowsy. Nurse says she looked to patient's things and found marijuana could treatments in there. There is concern the patient is using drugs also in the hospital. His sedative medications have been held. Plans for discharge consult. She has otherwise remained hemodynamically stable. Objective Data Objective Data Vital Signs: Vital Signs Temp Pulse Resp BP Pulse Ox O2 Del Method 97.9 F 61 16 96/54 L 95 Room Air 05/19/24 05:03 05/19/24 05:14 05/19/24 05:14 05/19/24 05:03 05/19/24 10:20 05/19/24 10:20 Oxygen Delivery Method Room Air Weight: 163 lb 9.328 oz Body Mass Index (BMI) 29.9 Intake & Output: Intake and Output for Last 24 Hours 05/17/24 05/18/24 05/19/24 23:59 23:59 23:59 Intake Total 1050 / 1050 750 / 750 50 / 50 Output Total 4550 / 4550 500 / 500 Balance 1050 / 850 -3800 / -3800 -450 / -450 Medical Nutrition Assessment Dietitian: Malnutrition Criteria Met Start: 05/18/24 14:02 Freq: Status: Active Protocol: Document 05/18/24 14:02 KJ (Rec: 05/18/24 14:02 KJ [id number]) Nutrition Malnutrition Evidence of Malnutrition Exists Yes Malnutrition (severe): Chronic,Social/Behavioral/ Environmental Evidenced By Suboptimal Energy Intake ( Severe),Weight Loss (Severe) Clinical Problem Biting/Chewing Difficulty Etiology related to edentulous Signs/Symptoms as evidenced by pt not having teeth and not wanting mech altered diet consistency Status Active Problem Chronic Disease or Condition Related Malnutrition Etiology related to R flank pain and decreased po intake causing pressure in stomach Signs/Symptoms as evidenced by 18.4% unintended wt loss and 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 Status Active Problem Recommendation Dietitian Recommendations/Changes Will change to liberal regular / no added salt diet d/t signs and symptoms of malnutrition. Will provide 8 oz chocolate CIB w/ meals for increased nutrition if consumed. Lab / Micro Data 05/19/24 05:45 05/19/24 05:45 Labs: Laboratory Results - last 24 hr 05/19/24 05:45: WBC 8.2, RBC 3.64 L, Hgb 11.2 L, Hct 33.1 L, MCV 90.9, MCH 30.8, MCHC 33.8, RDW Std Deviation 61.1 H, RDW Coeff of Katalina 18.6 H, Plt Count 68 L, MPV 11.6, Immature Gran % (Auto) 0.500, Neut % (Auto) 68.2, Lymph % (Auto) 19.6, [place] % (Auto) 7.6, Eos % (Auto) 3.4, Baso % (Auto) 0.7, Absolute Neuts (auto) 5.6, Absolute Lymphs (auto) 1.60, Nucleated RBC % 0, Sodium 138, Potassium 3.7, Chloride 109 H, Carbon Dioxide 24.0, Anion Gap 5, BUN 10, Creatinine 0.76, Estim Creat Clear Calc 83.52, Est GFR (MDRD) Af Amer 104, Est GFR (MDRD) Non-Af 86, BUN/Creatinine Ratio 13.2, Glucose 115 H, Calcium 8.8 Micro: Microbiology 05/17/24 13:58 Urine, Clean Catch Urine Culture - Preliminary Gram negative elida Physical Exam Const alert, oriented x3 and no apparent distress General Appearance: cooperative and well developed HEENT normocephalic, head/scalp atraumatic, moist oral mucous membranes and oropharynx normal Eyes PERRL and EOMs intact bilaterally Neck no lymphadenopathy and supple Lymph Lymphatic: no lymphadenopathy noted and no lymphedema noted Resp normal respiratory effort, normal air movement and clear to auscultation bilaterally Cardio regular rate, regular rhythm, S1 normal heart sound, S2 normal heart sound and no murmurs Peripheral Pulses: pulses 2+ throughout GI non-tender GI Narrative: abdominal distension had improved. Extremity normal capillary refill, no clubbing, cyanosis or edema and no calf tenderness General Extremity: no tenderness to palpation of joints or extremities Skin General Skin Exam: no breakdown Neuro CN's II-XII intact bilaterally, no focal motor deficits, no sensory deficits noted and deep tendon reflexes 2+ bilaterally Motor Exam: strength 5/5 throughout and general weakness Psych thought process normal, cooperative and affect normal Appearance: appropriate Assessment & Plan Assessment/Plan (1) Acute right flank pain: (2) UTI (urinary tract infection): PLAN: Plan #UTI * Recently had right renal and distal right ureteral stones with hydroureteronephrosis and had ureteroscopy with stent. She was discharged with a prescription for Bactrim but did not refill the prescription and came back to the hospital. * Urine cultures from 04/24/2024 grew MRSA and E. coli but repeat urine cultures from 05/13/2024 grew lactobacillus concerning for skin contamination. * Urinalysis with this admission after she came in for right flank pain showed 1+ bacteria. * Currently on IV ceftriaxone. Being hydrated gently with IV fluids. Urine cultures pending. * CT abdomen and pelvis showed a recent right ureteral stent. * #Acute encephalopathy * Patient was seen more lethargic today. Her nurse states that her staff when she was found her marijuana accoutrements. There is concern that she is using whilst in the hospital. * Patient's buspirone and Effexor as well as aripiprazole held. * Will give patient a dose of Narcan. * Hold any sedative meds. Get urine tox. * #History of chronic alcoholic cirrhosis * Has ascites. Currently on IV Lasix and spironolactone. Also on lactulose and Xifaxan. * Has regular paracentesis monthly. #Chronic hepatitis C: Treatment na?ve. To follow-up with GI on outpatient basis #Chronic thrombocytopenia: Likely due to chronic liver disease. Will monitor. #COPD: continues to smoke. Counseled to quit smoking. Not in exacerbation. Breathing treatment with bronchodilators. #Anxiety, depression and bipolar disorder: on aripiprazole, buspirone and Effexor. #Chronic migraine: On Topamax as needed. #SUMAYA: Noncompliant with his CPAP. Stable. #GERD: On PPI DVT prophylaxis: SCDs. Not anticoagulated due to thrombocytopenia Charges/Coding Visit Charges Inpatient E&M: 02032 Subs Hosp L2
--- NOTE | 2024-05-19 14:19 | CASEMGMT ---
Social Work- SW met with pt to discuss pt d/c. Pt states that she will not go to [facility]. Pt states that she has friends that she can stay with if she can have her purse to get the list of phone numbers. Bedside nurse advised. Pt understands that she has no solidified place to go at discharge and continues to refuse to seek shelters outside the area. MIRIAM Clemente
[2024-05-19 15:04] LABS: Amphetamine Urine VISTA NEGATIVE (<1000 ng/mL); Barbiturate Urine VISTA NEGATIVE (< 200 ng/mL); Benzodiazepine Urine VISTA NEGATIVE (< 200 ng/mL); Cocaine Urine VISTA NEGATIVE (< 300 ng/mL); Ecstacy Urine VISTA NEGATIVE (< 500 ng/mL); Methadone Urine VISTA NEGATIVE (< 300 ng/mL); PCP Urine VISTA NEGATIVE (< 25 ng/mL); THC Urine VISTA POSITIVE (< 50 ng/mL); Vista UDS pH Range 6
[2024-05-19] MEDS: busPIRone 5 MG Tablet 10 MG PO (21:11)
[2024-05-19] MEDS: Acetaminophen 325 MG Tablet 650 MG PO (23:20)
--- NOTE | 2024-05-20 01:01 | NURSING ---
This nurse spoke with Suha Granado and update given
[2024-05-20 04:30] VITALS: BP 125/60; PULSE 66; RESP 17; TEMP 36.6; O2SAT 95
[2024-05-20 06:23] LABS: Absolute Lymphocyte Count 1.74 X10^3/uL (0.83-4.51); Absolute Neutrophil Count 6.7 X10^3/uL (2.0-7.7); Basophil# 0.08 X10^3/uL; Basophil% 0.8 % (0-1); Eosinophil# 0.31 X10^3/uL; Eosinophils% 3.2 % (0-5); Hematocrit 35.6 % (37-47); Hemoglobin 12.2 g/dL (12.0-15.0); Lymphocyte # 1.74 X10^3/ul (0.83-4.51); Lymphocyte % 17.9 % (19-41); Mean Corp Hgb Conc 34.3 g/dL (32-36); Mean Corpuscular Hgb 30.7 pg (27.0-32.0); Mean Corpuscular Volume 89.4 fL (81-99); Mean Platelet Vol. 11.1 fl (6.2-12.0); Monocyte# 0.89 X10^3/uL; Monocyte% 9.2 % (0-10); NRBC Flagged by Analyzer 0 % (0-5); Neutrophil # 6.66 X10^3/uL (2.7-7.7); Neutrophil % 68.6 % (47-70); POSITIVE COUNT YES; Platelet Count 68 K/mm3 (150-450); RBC Distribution Width CV 18.3 % (11.6-14.6); Red Blood Count 3.98 M/mm3 (4.2-5.4); White Blood Count 9.7 K/mm3 (4.4-11.0)
[2024-05-20 06:28] LABS: Differential Indicated SCAN CRITERIA MET
[2024-05-20] MEDS: Acetaminophen 325 MG Tablet 650 MG PO ×2 (06:31→17:01)
[2024-05-20 06:55] LABS: Anion Gap 5 (5-15); BUN 12 mg/dL (7-18); BUN/Creat Ratio 16.3 RATIO (10-20); Calcium,Total 8.7 mg/dL (8.5-10.1); Chloride 109 mmol/L (98-107); Creatinine, Serum 0.74 mg/dL (0.55-1.02); EST Glomerular Filtration Rate 89 mL/min (>60); Est Glom Filt Rate - Afr Amer 107 mL/min (>60); Estimated Creatinine Clearance 85.78 ml/min; Glucose 114 mg/dL (74-106); Potassium 3.5 mmol/L (3.5-5.1); Sodium Level 138 mmol/L (136-145)
[2024-05-20 07:24] LABS: Differential Comment SCANNED
[2024-05-20 07:25] LABS: Platelet Estimate MOD DEC (ADEQ)
[2024-05-20 08:17] VITALS: BP 121/81; PULSE 73; RESP 16; TEMP 36.9; O2SAT 98
[2024-05-20] MEDS: Ferrous Sulfate 325 MG Tablet PO (08:35)
[2024-05-20] MEDS: Furosemide 40 MG/4 ML Vial IV ×2 (09:34→17:01)
[2024-05-20] MEDS: 0.9% Saline Lock 10 ML Syringe IV ×2 (09:34→17:02)
[2024-05-20] MEDS: Ceftriaxone 1 GM/50 ML BAG IV (09:40)
[2024-05-20] MEDS: busPIRone 5 MG Tablet 10 MG PO ×4 (09:44→20:52)
[2024-05-20] MEDS: ARIPiprazole 10 MG Tablet PO (09:44)
[2024-05-20] MEDS: Senna/Docusate Sodium 1 Tablet 2 TABLET PO ×2 (09:45→20:53)
[2024-05-20] MEDS: Topiramate 50 MG Tablet PO (09:45)
[2024-05-20] MEDS: Pantoprazole Sodium 40 MG Tablet PO (09:46)
[2024-05-20] MEDS: Venlafaxine XR 37.5 MG Capsule PO (09:47)
[2024-05-20] MEDS: Spironolactone 50 MG Tablet PO ×2 (09:47→20:53)
[2024-05-20] MEDS: Ascorbic Acid 500 MG Tablet PO (09:48)
[2024-05-20] MEDS: Gabapentin 100 MG Capsule PO ×2 (09:56→20:52)
--- NOTE | 2024-05-20 12:48 | PN_ITS ---
Subjective Subjective Patient seen and examined. She had no complaints. She is alert and communicative today. Review of symptoms otherwise negative. Plan was for discharge today. Patient however says she wanted to stay to talk to case management tomorrow about going to a snf as she is homeless. I did speak to case management about this yesterday and case management said patient was not being accepted to other shelters because of her drug use. She has remained hemodynamically stable. Objective Data Objective Data Vital Signs: Vital Signs Temp Pulse Resp BP Pulse Ox O2 Del Method 98.4 F 73 16 121/81 H 98 Room Air 05/20/24 08:17 05/20/24 08:17 05/20/24 08:17 05/20/24 08:17 05/20/24 08:17 05/20/24 08:17 Oxygen Delivery Method Room Air Weight: 163 lb 9.328 oz Body Mass Index (BMI) 29.9 Intake & Output: Intake and Output for Last 24 Hours 05/18/24 05/19/24 05/20/24 23:59 23:59 23:59 Intake Total 750 / 750 1130 / 1610 650 / 650 Output Total 4550 / 4550 3750 / 3750 Balance -3800 / -3800 -2620 / -2140 650 / 650 Medical Nutrition Assessment Dietitian: Malnutrition Criteria Met Start: 05/18/24 14:02 Freq: Status: Active Protocol: Document 05/18/24 14:02 KJ (Rec: 05/18/24 14:02 KJ [email or web address]) Nutrition Malnutrition Evidence of Malnutrition Exists Yes Malnutrition (severe): Chronic,Social/Behavioral/ Environmental Evidenced By Suboptimal Energy Intake ( Severe),Weight Loss (Severe) Clinical Problem Biting/Chewing Difficulty Etiology related to edentulous Signs/Symptoms as evidenced by pt not having teeth and not wanting mech altered diet consistency Status Active Problem Chronic Disease or Condition Related Malnutrition Etiology related to R flank pain and decreased po intake causing pressure in stomach Signs/Symptoms as evidenced by 18.4% unintended wt loss and 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 Will provide 8 oz chocolate CIB w/ meals for increased nutrition if consumed. Lab / Micro Data 05/20/24 05:42 05/20/24 05:42 Labs: Laboratory Results - last 24 hr 05/19/24 14:20: Urine Opiates Screen NEGATIVE, Urine Methadone Screen NEGATIVE, Ur Barbiturates Screen NEGATIVE, Ur Phencyclidine Scrn NEGATIVE, Ur Amphetamines Screen NEGATIVE, MDMA (Ecstasy) Screen NEGATIVE, U Benzodiazepines Scrn NEGATIVE, Urine Cocaine Screen NEGATIVE, U Cannabinoids Screen POSITIVE H, Ur Drug Screen Comment 05/20/24 05:42: WBC 9.7, RBC 3.98 L, Hgb 12.2, Hct 35.6 L, MCV 89.4, MCH 30.7, MCHC 34.3, RDW Std Deviation 59.0 H, RDW Coeff of Katalina 18.3 H, Plt Count 68 L, MPV 11.1, Immature Gran % (Auto) 0.300, Neut % (Auto) 68.6, Lymph % (Auto) 17.9 L, [place] % (Auto) 9.2, Eos % (Auto) 3.2, Baso % (Auto) 0.8, Absolute Neuts (auto) 6.7, Absolute Lymphs (auto) 1.74, Nucleated RBC % 0, Differential Comment SCANNED, Platelet Estimate MOD DEC, Sodium 138, Potassium 3.5, Chloride 109 H, Carbon Dioxide 24.0, Anion Gap 5, BUN 12, Creatinine 0.74, Estim Creat Clear Calc 85.78, Est GFR (MDRD) Af Amer 107, Est GFR (MDRD) Non-Af 89, BUN/Creatinine Ratio 16.3, Glucose 114 H, Calcium 8.7 Micro: Microbiology 05/17/24 13:58 Urine, Clean Catch Urine Culture - Preliminary Gram negative elida Physical Exam Const alert, oriented x3 and no apparent distress General Appearance: cooperative and well developed HEENT normocephalic, head/scalp atraumatic, moist oral mucous membranes and oropharynx normal Eyes PERRL and EOMs intact bilaterally Neck no lymphadenopathy and supple Lymph Lymphatic: no lymphadenopathy noted and no lymphedema noted Resp normal respiratory effort, normal air movement and clear to auscultation bilaterally Cardio regular rate, regular rhythm, S1 normal heart sound, S2 normal heart sound and no murmurs Peripheral Pulses: pulses 2+ throughout GI normal to inspection, nondistended, normoactive bowel sounds, soft to palpation and non-tender Extremity normal capillary refill, no clubbing, cyanosis or edema and no calf tenderness General Extremity: no tenderness to palpation of joints or extremities Skin General Skin Exam: no breakdown Neuro CN's II-XII intact bilaterally, no focal motor deficits, no sensory deficits noted and deep tendon reflexes 2+ bilaterally Motor Exam: strength 5/5 throughout and general weakness Psych thought process normal, cooperative and affect normal Appearance: appropriate Assessment & Plan Assessment/Plan (1) Acute right flank pain: (2) UTI (urinary tract infection): PLAN: Plan #UTI * Recently had right renal and distal right ureteral stones with hydroureteronephrosis and had ureteroscopy with stent. She was discharged with a prescription for Bactrim but did not refill the prescription and came back to the hospital. * Urine cultures from 04/24/2024 grew MRSA and E. coli but repeat urine cultures from 05/13/2024 grew lactobacillus concerning for skin contamination. * Urinalysis with this admission after she came in for right flank pain showed 1+ bacteria. * Currently on IV ceftriaxone. Being hydrated gently with IV fluids. Urine cultures pending. * CT abdomen and pelvis showed a recent right ureteral stent. * #Acute encephalopathy * Patient was seen more lethargic today. Her nurse states that her staff when she was found her marijuana accoutrements. There is concern that she is using whilst in the hospital. * Patient's buspirone and Effexor as well as aripiprazole held. * Will give patient a dose of Narcan. * Hold any sedative meds. Get urine tox. * #History of chronic alcoholic cirrhosis * Has ascites. Currently on IV Lasix and spironolactone. Also on lactulose and Xifaxan. * Has regular paracentesis monthly. #Chronic hepatitis C: Treatment na?ve. To follow-up with GI on outpatient basis #Chronic thrombocytopenia: Likely due to chronic liver disease. Will monitor. #COPD: continues to smoke. Counseled to quit smoking. Not in exacerbation. Breathing treatment with bronchodilators. #Anxiety, depression and bipolar disorder: on aripiprazole, buspirone and Effexor. #Chronic migraine: On Topamax as needed. #SUMAYA: Noncompliant with his CPAP. Stable. #GERD: On PPI DVT prophylaxis: SCDs. Not anticoagulated due to thrombocytopenia Disposition: currently homeless. Case management to help facilitate dc tomorrow. Charges/Coding Visit Charges Inpatient E&M: 18783 Subs Hosp L2
--- NOTE | 2024-05-20 12:55 | CASEMGMT ---
Social Work: Date of referral: 05/20/2024 Reason for referral: Discharge Planning Consult Referred by: Dr. Hoff Social work consult requested for patient regarding discharge planning. press worker helper reviewed Daily report and Case Management progress as well as gaining history from clinical social work therapist's home health clinical supervisor. It appears as though patient is now requesting to be placed in a homeless halfway instead of being discharged to friends. press worker helper confirmed with psychologist social that any potential placement into a homeless halfway is not able to be initiated until Tuesday. Approvals cannot be processed on the weekends. It appears as though Case Management follow up with patient is already planned for Tuesday by Yvonne Hartman to attempt to help patient get connected to emergency halfway through patient's Refrigerating Machine Operator Krista at [facility]. Krista would have to make a referral to [facility] and if accepted, Krista would physically take patient to get a hotel room and food. It was reported that patient has had a history of getting kicked out of shelters and has burned some bridges due to non-compliance. No guarantees for halfway or emergency placement. press worker helper updated nurse Harriet as well as doctor. Emperatriz Soler, HEAVY MACHINERY ASSEMBLER, PRECISION INSPECTOR
[2024-05-20 14:18] VITALS: BP 124/81; PULSE 63; RESP 16; TEMP 36.8; O2SAT 99
--- NOTE | 2024-05-20 15:31 | NURSING ---
This RN taking over care of pt at this time.
[2024-05-20 17:00] VITALS: BP 135/82
[2024-05-20] MEDS: MELATONIN 10 MG TABLET 5 MG PO (20:53)
[2024-05-20 21:00] VITALS: BP 126/73; PULSE 64; RESP 18; TEMP 36.7; O2SAT 99
[2024-05-21 03:00] VITALS: BP 119/72; PULSE 66; RESP 16; TEMP 36.6; O2SAT 99
[2024-05-21 07:17] LABS: Absolute Lymphocyte Count 1.95 X10^3/uL (0.83-4.51); Absolute Neutrophil Count 6.4 X10^3/uL (2.0-7.7); Basophil# 0.08 X10^3/uL; Basophil% 0.8 % (0-1); Eosinophil# 0.31 X10^3/uL; Eosinophils% 3.2 % (0-5); Hematocrit 36.4 % (37-47); Hemoglobin 12.4 g/dL (12.0-15.0); Lymphocyte # 1.95 X10^3/ul (0.83-4.51); Lymphocyte % 20.3 % (19-41); Mean Corp Hgb Conc 34.1 g/dL (32-36); Mean Corpuscular Hgb 30.7 pg (27.0-32.0); Mean Corpuscular Volume 90.1 fL (81-99); Mean Platelet Vol. 11.2 fl (6.2-12.0); Monocyte# 0.79 X10^3/uL; Monocyte% 8.2 % (0-10); NRBC Flagged by Analyzer 0 % (0-5); Neutrophil # 6.43 X10^3/uL (2.7-7.7); Neutrophil % 67.2 % (47-70); POSITIVE COUNT YES; Platelet Count 75 K/mm3 (150-450); RBC Distribution Width CV 18.3 % (11.6-14.6); RBC Distribution Width SD 59.4 fl (35.1-43.9); Red Blood Count 4.04 M/mm3 (4.2-5.4); White Blood Count 9.6 K/mm3 (4.4-11.0)
[2024-05-21 07:51] LABS: Anion Gap 4 (5-15); BUN 10 mg/dL (7-18); BUN/Creat Ratio 11.9 RATIO (10-20); Chloride 109 mmol/L (98-107); Creatinine, Serum 0.84 mg/dL (0.55-1.02); EST Glomerular Filtration Rate 76 mL/min (>60); Est Glom Filt Rate - Afr Amer 92 mL/min (>60); Estimated Creatinine Clearance 75.56 ml/min; Glucose 133 mg/dL (74-106); Potassium 3.5 mmol/L (3.5-5.1); Sodium Level 138 mmol/L (136-145)
[2024-05-21 08:53] VITALS: BP 121/79; PULSE 65; RESP 16; TEMP 36.7; O2SAT 100
[2024-05-21] MEDS: Senna/Docusate Sodium 1 Tablet 2 TABLET PO (08:58)
[2024-05-21] MEDS: Topiramate 50 MG Tablet PO (08:58)
[2024-05-21] MEDS: Spironolactone 50 MG Tablet PO (09:00)
[2024-05-21] MEDS: busPIRone 5 MG Tablet 10 MG PO ×2 (09:00→14:08)
[2024-05-21] MEDS: Ferrous Sulfate 325 MG Tablet PO (09:00)
[2024-05-21] MEDS: Ascorbic Acid 500 MG Tablet PO (09:00)
[2024-05-21] MEDS: ARIPiprazole 10 MG Tablet PO (09:01)
[2024-05-21] MEDS: Venlafaxine XR 37.5 MG Capsule PO (09:02)
[2024-05-21] MEDS: Furosemide 40 MG/4 ML Vial IV (09:02)
[2024-05-21] MEDS: Pantoprazole Sodium 40 MG Tablet PO (09:02)
[2024-05-21] MEDS: Ceftriaxone 1 GM/50 ML BAG IV (09:07)
[2024-05-21] MEDS: Gabapentin 100 MG Capsule PO (09:07)
[2024-05-21] MEDS: 0.9% Saline Lock 10 ML Syringe IV (09:08)
--- NOTE | 2024-05-21 09:22 | CASEMGMT ---
SW received an email from [facility]. Patient is not eligible for the emergency care home assistance due to not meeting all of the criteria. SW spoke with patient this am and asked if she is willing to go to an out of county care home. Patient asked what probation thinks about this. SW told patient she will need to contact her maritime officer and find out. Patient then said she was supposed to get her list of numbers that are in her purse, but no one ever did. RN was in patient's room and she said she would assist with this. Patient asked if she could return to [facility] since she got medical care. SHELL told patient SW can call and ask, but Tuesday they said no. SW did call [facility], but was told no one will be in the care home today until around 1p. SHELL will try back later. Yvonne CERRATO
--- NOTE | 2024-05-21 09:54 | CASEMGMT ---
SHELL updated patient that SW will have to call [facility] back around 1 due to no one being at retirement to talk with. Patient said she spoke with her conservation officer and he said it is up to her if she leaves the [facility], but she still has obligations she has to meet in [place]. Patient would not have transportation back and forth from [place]. SW will call [facility] later and then let her know. Yvonne CERRATO
--- NOTE | 2024-05-21 11:18 | CASEMGMT ---
SHELL called patient's major case detective with [facility] Augustin) to let her know patient is still at [facility]. There was no answer and the voice mailbox was full. Yvonne CERRATO
--- NOTE | 2024-05-21 12:49 | CASEMGMT ---
SHELL called [facility] [employer] [facility] [employer] and spoke with Triny. SW asked if they would consider taking patient back. Triny said they would, but right now they are full. SW let patient know this information. SW asked patient if she called [facility] and she said she has not. SW told her they were full last week, but they may not be now. SW suggested patient go to [facility] for their housing program to see if there is anything they can do to assist patient. Patient asked if she can leave now so she can start searching for a place to stay. SHELL told her SW will notify physician to put in her discharge information. Patient asked if she left and couldn't find a place could she come back and someone could help her get to the halfway in [place]. SW told patient she would have to go to the ED. SW also encouraged patient to try and reach her case management assistant at [facility]. Patient's only concern with going to [place] is she has to get back to [place] for legal stuff/probation and she does not know how she would do this. SHELL notified physician that patient can be discharged. Yvonne Hartman MSW SAQIB
--- NOTE | 2024-05-21 13:46 | PCM.DC.SUM ---
Providers Date of Admission: 05/17/24 Date of Discharge: 05/21/24 Primary Care Physician: Dr. Ang Acosta MD Reason For Visit: RIGHT FLANK PAIN Diagnosis Discharge Diagnosis (1) Acute right flank pain: Status: Deleted Code(s): R10.9 - Unspecified abdominal pain (2) UTI (urinary tract infection): Status: Acute Code(s): N39.0 - Urinary tract infection, site not specified Plan #UTI Recently had right renal and distal right ureteral stones with hydroureteronephrosis and had ureteroscopy with stent. She was discharged with a prescription for Bactrim but did not refill the prescription and came back to the hospital. Urine cultures from 04/24/2024 grew MRSA and E. coli but repeat urine cultures from 05/13/2024 grew lactobacillus concerning for skin contamination. Urinalysis with this admission after she came in for right flank pain showed 1+ bacteria. Currently on IV ceftriaxone. Being hydrated gently with IV fluids. Urine cultures pending. CT abdomen and pelvis showed a recent right ureteral stent. #Acute encephalopathy Patient was seen more lethargic today. Her nurse states that her staff when she was found her marijuana accoutrements. There is concern that she is using whilst in the hospital. Patient's buspirone and Effexor as well as aripiprazole held. Will give patient a dose of Narcan. Hold any sedative meds. Get urine tox. #History of chronic alcoholic cirrhosis Has ascites. Currently on IV Lasix and spironolactone. Also on lactulose and Xifaxan. Has regular paracentesis monthly. #Chronic hepatitis C: Treatment na?ve. To follow-up with GI on outpatient basis #Chronic thrombocytopenia: Likely due to chronic liver disease. Will monitor. #COPD: continues to smoke. Counseled to quit smoking. Not in exacerbation. Breathing treatment with bronchodilators. #Anxiety, depression and bipolar disorder: on aripiprazole, buspirone and Effexor. #Chronic migraine: On Topamax as needed. #SUMAYA: Noncompliant with his CPAP. Stable. #GERD: On PPI DVT prophylaxis: SCDs. Not anticoagulated due to thrombocytopenia Disposition: currently homeless. Case management to help facilitate dc tomorrow. Medications at Discharge Home Medications gabapentin 100 mg capsule 100 mg PO Q12H nerve pain 07/20/23 albuterol sulfate 90 mcg/actuation aerosol inhaler (Ventolin HFA) 2 puff inhalation Q4H PRN shortness of breath or wheezing 12/04/23 ascorbate calcium (vitamin C) 500 mg tablet 500 mg PO DAILY vitamin 12/04/23 ferrous sulfate 325 mg (65 mg iron) tablet (FeroSul) 325 mg PO DAILY supplement 12/04/23 buspirone 10 mg tablet 10 mg PO 4X/DAY ANXIETY 04/11/24 desvenlafaxine succinate 50 mg tablet,extended release 24 hr 50 mg PO DAILY 04/11/24 melatonin 5 mg tablet 5 mg PO QHS 04/11/24 topiramate 50 mg tablet 50 mg PO DAILY 04/11/24 furosemide 40 mg tablet (Lasix) 40 mg PO DAILY DIURETIC #30 tabs 04/13/24 spironolactone 50 mg tablet 50 mg PO BID #60 tabs 04/13/24 pantoprazole 40 mg tablet,delayed release (Protonix) 40 mg PO DAILY #30 tabs 05/11/24 bacitracin zinc 500 unit/gram topical ointment 1 applic topical BID 14 days #1 tube 05/15/24 sulfamethoxazole 800 mg-trimethoprim 160 mg tablet (Bactrim DS) 1 tab PO BID #10 tabs 05/15/24 aripiprazole 10 mg tablet 10 mg PO DAILY 05/17/24 fluticasone propionate 50 mcg/actuation nasal spray,suspension 1 spray intranasal Q12H PRN allergy symptoms 05/17/24 Hospital Course Operations None Procedures None Summary of Care Provided Minutes Spent on Discharge: 50 Hospital Course: Patient is a 48-year-old female with a past medical history as outlined who was admitted through the ED on 05/17/2024 with a complaint of chills and severe right flank pain. Patient had been discharged just 2 days prior to admission after being managed for acute obstructive uropathy due to right kidney and distal ureteral stone with hydroureteronephrosis which required ureteroscopy and stenting by urologist. She was discharged on p.o. Bactrim but did not fill the prescription. She subsequently started having right-sided flank pain and so came to the ED. She had dark concentrated urine. Previous urine cultures had grown E. coli and MRSA. Urinalysis did not show evidence of UTI. She was admitted and managed for UTI. She was started on IV ceftriaxone. She was hydrated with fluids and given IV pain meds. His symptoms resolved and she felt better. Hospital course was complicated by an episode of confusion which was thought to be due to illicit use of marijuana as she was found to have marijuana accoutrements in the hospital. Encephalopathy resolved and she felt better. Patient was discharged on 05/21/2024. She is follow-up with her primary care doctor within 1 to 2 weeks. Of note patient initially asked for case management help with placement. However patient could apparently not be sent to any of the shelters around because she was banned from those shelters on account of drug use. She had been given recommendations for shelters outside the pending sale to [facility] but also did not want to go to the shelters. Patient therefore opted to go to stay with friends on discharge. SHe was to order picker her script for PO bactrim DS 1 tab bid that was sent previously and to complete the course of antibiotics. Urine culture grew Sphingomonas puacimobilis sensitive to Bzctrim. Patient seen and examined prior to discharge. She had no active complaints and had an uneventful night. Review of symptoms otherwise negative. Physical Exam Const alert, oriented x3 and no apparent distress General Appearance: cooperative, comfortable, well kempt and well developed HEENT normocephalic, head/scalp atraumatic, hearing grossly normal bilaterally, moist oral mucous membranes and oropharynx normal Mouth: oral and palatal mucosa normal Eyes PERRL, EOMs intact bilaterally and conjunctivae normal Neck no lymphadenopathy and supple Lymph Lymphatic: no lymphadenopathy noted and no lymphedema noted Resp normal respiratory effort, normal air movement and clear to auscultation bilaterally Cardio regular rate, regular rhythm, S1 normal heart sound, S2 normal heart sound and no murmurs Peripheral Pulses: pulses 2+ throughout GI normal to inspection, nondistended, normoactive bowel sounds, soft to palpation and non-tender Extremity normal to inspection, full ROM, normal capillary refill, no clubbing, cyanosis or edema and no calf tenderness General Extremity: no tenderness to palpation of joints or extremities Skin no rashes or lesions noted General Skin Exam: no breakdown Neuro oriented x3, CN's II-XII intact bilaterally, moves all extremities, no focal motor deficits, no sensory deficits noted and deep tendon reflexes 2+ bilaterally Sensorium / Orientation: awake and alert Motor Exam: strength 5/5 throughout and general weakness Psych thought process normal, cooperative and affect normal Appearance: appropriate Medical Records Data Medical Nutrition Assessment Dietitian: Malnutrition Criteria Met Start: 05/18/24 14:02 Freq: Status: Active Protocol: Document 05/18/24 14:02 [facility] (Rec: 05/18/24 14:02 [facility] [id number]) Nutrition Malnutrition Evidence of Malnutrition Exists Yes Malnutrition (severe): Chronic,Social/Behavioral/ Environmental Evidenced By Suboptimal Energy Intake ( Severe),Weight Loss (Severe) Clinical Problem Biting/Chewing Difficulty Etiology related to edentulous Signs/Symptoms as evidenced by pt not having teeth and not wanting mech altered diet consistency Status Active Problem Chronic Disease or Condition Related Malnutrition Etiology related to R flank pain and decreased po intake causing pressure in stomach Signs/Symptoms as evidenced by 18.4% unintended wt loss and po intake meeting <75% of 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 Status Active Problem Recommendation Dietitian Recommendations/Changes Will change to liberal regular / no added salt diet d/t signs and symptoms of malnutrition. Will provide 8 oz chocolate CIB w/ meals for increased nutrition if consumed. Homelessness:: Sheltered Weight / BMI Weight Weight: 163 lb 9.328 oz Body Mass Index (BMI) 29.9 ABG / Lab / Microbiology Data 05/21/24 06:06 05/21/24 06:06 Laboratory: Laboratory Results - last 24 hr 05/21/24 06:06: WBC 9.6, RBC 4.04 L, Hgb 12.4, Hct 36.4 L, MCV 90.1, MCH 30.7, MCHC 34.1, RDW Std Deviation 59.4 H, RDW Coeff of Katalina 18.3 H, Plt Count 75 L, MPV 11.2, Immature Gran % (Auto) 0.300, Neut % (Auto) 67.2, Lymph % (Auto) 20.3, Zavala % (Auto) 8.2, Eos % (Auto) 3.2, Baso % (Auto) 0.8, Absolute Neuts (auto) 6.4, Absolute Lymphs (auto) 1.95, Nucleated RBC % 0, Sodium 138, Potassium 3.5, Chloride 109 H, Carbon Dioxide 25.0, Anion Gap 4 L, BUN 10, Creatinine 0.84, Estim Creat Clear Calc 75.56, Est GFR (MDRD) Af Amer 92, Est GFR (MDRD) Non-Af 76, BUN/Creatinine Ratio 11.9, Glucose 133 H, Calcium 9.0 Microbiology: Microbiology 05/17/24 13:58 Urine, Clean Catch Urine Culture - Final Sphingomonas paucimobilis D/C Instructions Discharge Diet: Low fat / Low cholesterol Discharge Activity: Return to Normal Activity Weight Bearing Status: Weight bearing as tolerated Call your doctor if you observe: Fever of 101 or Higher, Shortness of breath, Dizziness, Swelling in the ankles and Chest pain Meaningful Use Info Meaningful Use Meaningful Use Diagnoses (Choose all that apply): None applicable Ischemic Stroke Statin Dosing Therapy Reference: STATIN DOSE THERAPY REFERENCE: * Patients > 75 years receive moderate or high dose statin therapy. * Patients 75 years or YOUNGER should receive HIGH intensity statin dose unless contraindicated. You will be required to document reason for non-treatment if statin daily dose does not meet guidelines. HIGH DOSE STATIN THERAPY DAILY Atorvastatin > than or = to 40 mg Rosuvastatin > than or = to 20 mg Amlodipine + Atorvastatin > than or = to 2.5/40 mg Ezetimibe + Simvastatin 10/80 mg Simvastatin 80mg Discharge Plan Admission Admit Date/Time: 05/17/24 18:39 Primary Reason for Your Visit: UTI Attending Provider: Elena Hoff Primary Care Provider: Ang Acosta Consulting Providers: Son Adams Instructions Patient Instructions: ED UTI Fem Ch, ED UTIs Women Discharge Orders/Prescriptions Prescriptions: Continued gabapentin 100 mg capsule 100 mg PO Q12H bacitracin zinc 500 unit/gram Ointment 1 applic topical BID 14 Days Qty: 1 0RF Protocol: *Topical Application Instructions APPLICATION INSTRUCTIONS: affected area Rx Instructions: Apply to chin wound and BL foot wounds. Avoid picking skin. sulfamethoxazole-trimethoprim [Bactrim DS] 800-160 mg tablet 1 tab PO BID Qty: 10 0RF Patient Comments: pt not sure if this med was picked up albuterol sulfate [Ventolin HFA] 90 mcg/actuation HFA aerosol inhaler 2 puff inhalation Q4H PRN (Reason: shortness of breath or wheezing) ferrous sulfate [FeroSul] 325 mg (65 mg iron) tablet 325 mg PO DAILY ascorbate calcium (vitamin C) 500 mg tablet 500 mg PO DAILY buspirone 10 mg tablet 10 mg PO 4X/DAY topiramate 50 mg tablet 50 mg PO DAILY desvenlafaxine succinate 50 mg tablet extended release 24 hr 50 mg PO DAILY melatonin 5 mg tablet 5 mg PO QHS spironolactone 50 mg Tablet 50 mg PO BID Qty: 60 1RF furosemide [Lasix] 40 mg tablet 40 mg PO DAILY Qty: 30 0RF Rx Instructions: start on 04/14/24 pantoprazole [Protonix] 40 mg tablet,delayed release (DR/EC) 40 mg PO DAILY Qty: 30 0RF fluticasone propionate 50 mcg/actuation spray,suspension 1 spray INTRANASAL Q12H PRN (Reason: allergy symptoms) Patient Comments: pt states she was taking but she thinks it was messing with her stomach. aripiprazole 10 mg tablet 10 mg PO DAILY Patient Comments: pt thinks she takes this, but not sure Referrals / Follow Up: Ang Acosta MD [Primary Care Provider] - 05/29/24 10:00 am Disposition Disposition (needs filled in before D/C Order can be placed): Home, Self Care Charges/Coding Visit Charges Inpatient E&M: 33890 Disch Hosp >30min
[2024-05-21 14:10] VITALS: BP 119/67; PULSE 70; RESP 16; TEMP 37.1; O2SAT 99
--- NOTE | 2024-05-21 14:58 | CASEMGMT ---
SHELL called patient's rehabilitation case coordinator, Krista and left her a voice mail letting her know patient is being discharged today. SHELL let her know patient does not have anywhere to go. SHELL told patient to check in with [facility]. Yvonne CERRATO
== END 2024-05-21 15:05 | disposition home or self-care (01) | DRG 463 ==
LOC: ED 12:54 → PCU 05-18 07:11
PROVIDERS: Admitting Provider Internal Medicine; Emergency Provider Emergency Medicine; PCP Family Medicine; Visit Provider Student in an Organized Health Care Education/Training Program
DX: N13.6 Pyonephrosis (principal); G92.8 Other toxic encephalopathy; E43 Unspecified severe protein-calorie malnutrition; K70.31 Alcoholic cirrhosis of liver with ascites; D63.8 Anemia in other chronic diseases classified elsewhere; F17.210 Nicotine dependence, cigarettes, uncomplicated; D50.9 Iron deficiency anemia, unspecified; J44.9 Chronic obstructive pulmonary disease, unspecified; F31.9 Bipolar disorder, unspecified; E66.9 Obesity, unspecified; B18.2 Chronic viral hepatitis C; M79.89 Other specified soft tissue disorders; F41.9 Anxiety disorder, unspecified; K21.9 Gastro-esophageal reflux disease without esophagitis; G47.33 Obstructive sleep apnea (adult) (pediatric); G43.709 Chronic migraine without aura, not intractable, without status migrainosus; B96.89 Other specified bacterial agents as the cause of diseases classified elsewhere; T36.8X6A Underdosing of other systemic antibiotics, initial encounter; T40.711A Poisoning by cannabis, accidental (unintentional), initial encounter; R16.1 Splenomegaly, not elsewhere classified; Z59.01 Sheltered homelessness; Z86.14 Personal history of Methicillin resistant Staphylococcus aureus infection; Z68.30 Body mass index [BMI] 30.0-30.9, adult; Z91.199 Patient's noncompliance with other medical treatment and regimen due to unspecified reason; Z91.148 Patient's other noncompliance with medication regimen for other reason
CPT/HCPCS: 36415; 74176; 80048; 80053; 80076; 80307; 81001; 81025; 83690; 85025; 87077; 87086; 87088; 87186; 94668; 97802; 99284; J7030; J7040; A4216; J1940; J2310; J2405

== ENCOUNTER 2024-05-29 18:13 | Inpatient (IN) | payer MEDICAID, SELFPAY ==
[2024-05-29 18:14] VITALS: BP 125/86; PULSE 72; RESP 16; TEMP 37.1; O2SAT 99; BMI 30.9
[2024-05-29 19:41] LABS: Absolute Lymphocyte Count 1.47 X10^3/uL (0.83-4.51); Basophil# 0.07 X10^3/uL; Basophil% 0.9 % (0-1); Eosinophil# 0.34 X10^3/uL; Eosinophils% 4.6 % (0-5); Hematocrit 38.1 % (37-47); Hemoglobin 12.4 g/dL (12.0-15.0); Lymphocyte # 1.47 X10^3/ul (0.83-4.51); Lymphocyte % 19.8 % (19-41); Mean Corp Hgb Conc 32.5 g/dL (32-36); Mean Corpuscular Hgb 30.4 pg (27.0-32.0); Mean Corpuscular Volume 93.4 fL (81-99); Mean Platelet Vol. 11.3 fl (6.2-12.0); Monocyte# 0.54 X10^3/uL; Monocyte% 7.3 % (0-10); NRBC Flagged by Analyzer 0 % (0-5); Neutrophil # 4.96 X10^3/uL (2.7-7.7); POSITIVE COUNT YES; Platelet Count 78 K/mm3 (150-450); RBC Distribution Width SD 60.9 fl (35.1-43.9); Red Blood Count 4.08 M/mm3 (4.2-5.4); White Blood Count 7.4 K/mm3 (4.4-11.0)
[2024-05-29 19:42] LABS: Mucous, Urine 0 SEEN /hpf (<or=2+)
[2024-05-29 19:43] LABS: Color, Urine Brown (Yellow); Glucose, Dipstick Normal (Normal); Ketone-Dipstick 5 mg/dl (Negative); Leukocyte Esterase-Dipstick 500 /ul (Negative); Nitrite-Dipstick Negative (Negative); Occult Blood-Urine 250 /ul (Negative); Protein-Dipstick 100 mg/dl (Negative); Urine Clarity Turbid (Clear); Urine Urobilinogen 4 mg/dl (Normal)
[2024-05-29 19:44] LABS: Urine Bilirubin Dipstick 1 mg/dL (Negative)
[2024-05-29 19:44] LABS: Differential Indicated SCAN CRITERIA MET
[2024-05-29 19:55] LABS: Internal QC Validated? YES +Cl - CLEAR BKGD; Pregnancy, Serum, hCG Quali. NEGATIVE Negative
[2024-05-29 19:58] LABS: ALB/GLOB Ratio 0.6 RATIO (0.9-2.4); AST(SGOT) 159 U/L (15-37); Alanine Aminotransfer ALT/SGPT 109 U/L (13-56); Albumin, Serum 2.7 g/dL (3.2-5.0); Alkaline Phosphatase 175 U/L (45-117); Anion Gap 5 (5-15); BUN 10 mg/dL (7-18); BUN/Creat Ratio 10.4 RATIO (10-20); Calcium,Total 8.9 mg/dL (8.5-10.1); Chloride 109 mmol/L (98-107); Creatinine, Serum 0.96 mg/dL (0.55-1.02); EST Glomerular Filtration Rate 65 mL/min (>60); Est Glom Filt Rate - Afr Amer 79 mL/min (>60); Estimated Creatinine Clearance 67.21 ml/min; Globulin 4.7 g/dL (2.2-4.2); Glucose 107 mg/dL (74-106); Potassium 3.6 mmol/L (3.5-5.1); Protein, Total 7.4 g/dL (6.4-8.2); Sodium Level 139 mmol/L (136-145)
[2024-05-29 20:02] LABS: Red Blood Cells-Urine > 100 SEEN /hpf (0-5)
[2024-05-29 20:03] LABS: Squamous Epithelial Cells - UA 5-10 SEEN /hpf (5-10)
[2024-05-29 20:05] LABS: White Blood Cells 25-50 SEEN /hpf (0-5)
[2024-05-29 20:06] LABS: Renal Epithelial Cells 0-5 SEEN /hpf (0-5)
[2024-05-29 20:07] LABS: Bacteria 1+ /hpf (None Seen); Calcium Oxalate Crystals Ur RARE /hpf (<or=2+)
[2024-05-29 21:06] LABS: Platelet Estimate MKD DEC (ADEQ)
[2024-05-29 21:16] VITALS: BP 128/95; PULSE 69; RESP 17; TEMP 36.8; O2SAT 98
[2024-05-29 22:00] VITALS: BP 120/72; PULSE 63; RESP 16; TEMP 36.8; O2SAT 98
[2024-05-29 22:23] LABS: Lipase 79 U/L (13-75)
[2024-05-29 23:00] VITALS: BP 93/65; PULSE 69; RESP 16; TEMP 36.4; O2SAT 98
[2024-05-30] VITALS (9 sets, daily range): BP systolic 98–120; BP diastolic 54–81; PULSE 53–70; RESP 15–18; TEMP 36.4–37; O2SAT 97–100; BMI 28.8
[2024-05-30] MEDS: Morphine 4 MG/ML Syringe IV (00:25)
--- NOTE | 2024-05-30 00:28 | ED.RN ---
PT IS VERY UPSET WANTING PAIN MEDICATION. PT IS SLAMMING DOORS AND USING VULGAR LANGUAGE. THIS NURSE ASKED PT TO STOP SLAMMING DOORS. PT HAS BEEN MEDICATED WITH 4MG OF MORPHINE. PT IS NOT HAPPY WITH MEDICATION BUT CONSENTS TO THIS NURSE TO ADMINISTER.
--- NOTE | 2024-05-30 03:19 | EX.ED.DYSGE1 ---
HPI History of Present Illness Chief Complaint: Abd Pain Detail of Chief Complaint: Patient presents with generalized abdominal pain Informant: patient Onset/Context/Timing Onset: Days Context: Sudden Onset (Worse tonight) Timing: Continuous Quality: Pain Location: Generalized Current Severity: Mild Maximum Severity: Severe Worsened by: Palpation and movement Relieved by: Nothing Associated Symptoms Associated Symptoms: Nausea Narrative Narrative: Patient is a 48-year-old woman. 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 She denies history of pancreatitis. She does admit to drinking recently.Patient was seen May 11, and for abdominal pain and flank pain. She was seen April 24 by me for acute pyelonephritis due to bacteria. She had a CT of the abdomen on the which revealed ascites. She also had a distended gallbladder. Splenomegaly which is not a new finding. Patient is a very poor informant. She is very vague. She moans. She complains of subjective fever. She denies chills. Denies headache, visual, ocular auditory symptoms. She denies new cough. She denies sputum production. She denies dyspnea or [place] exertion. She denies chest discomfort. She denies orthopnea or PND. She denies swelling of her feet or lower extremities. She does endorse dysuria, frequency, urgency. Prior similar symptoms: Yes Recent Illness/Hospitalization: Yes PFSH [facility] Medical History Urolithiasis Hydronephrosis with renal calculous obstruction Hydroureteronephrosis Ascites of liver Bipolar disorder Anxiety Depression Kidney stones Sleep apnea Complete edentulism, class III Alcohol abuse Chronic pain GERD (gastroesophageal reflux disease) Restless legs Iron deficiency anemia Hyperbilirubinemia Substance abuse Marijuana use MRSA infection History of renal disease Low iron Anemia Hepatitis Migraine headache Seizures History of diverticulitis COPD (chronic obstructive pulmonary disease) Smoker Obesity Thrombocytopenia Polysubstance abuse Cirrhosis of liver Anxiety and depression Hepatitis C, chronic Home Medications ?Medication ?Instructions ?Recorded ?Last Taken ?Type gabapentin 100 mg capsule 100 mg PO Q12H nerve pain 07/20/23 05/16/24 History albuterol sulfate 90 mcg/actuation 2 puff inhalation Q4H PRN 12/04/23 05/16/24 History aerosol inhaler (Ventolin HFA) shortness of breath or wheezing ascorbate calcium (vitamin C) 500 500 mg PO DAILY vitamin 12/04/23 05/16/24 History mg tablet ferrous sulfate 325 mg (65 mg 325 mg PO DAILY supplement 12/04/23 05/16/24 History iron) tablet (FeroSul) buspirone 10 mg tablet 10 mg PO 4X/DAY ANXIETY 04/11/24 05/16/24 History desvenlafaxine succinate 50 mg 50 mg PO DAILY 04/11/24 05/16/24 History tablet,extended release 24 hr melatonin 5 mg tablet 5 mg PO QHS 04/11/24 05/16/24 History topiramate 50 mg tablet 50 mg PO DAILY 04/11/24 05/16/24 History furosemide 40 mg tablet (Lasix) 40 mg PO DAILY DIURETIC #30 tabs 04/13/24 05/16/24 Rx spironolactone 50 mg tablet 50 mg PO BID #60 tabs 04/13/24 05/16/24 Rx pantoprazole 40 mg tablet,delayed 40 mg PO DAILY #30 tabs 05/11/24 05/16/24 Rx release (Protonix) bacitracin zinc 500 unit/gram 1 applic topical BID 14 days #1 05/15/24 05/16/24 Rx topical ointment tube sulfamethoxazole 800 1 tab PO BID #10 tabs 05/15/24 Unknown Rx mg-trimethoprim 160 mg tablet (Bactrim DS) aripiprazole 10 mg tablet 10 mg PO DAILY 05/17/24 05/16/24 History fluticasone propionate 50 1 spray intranasal Q12H PRN 05/17/24 Unknown History mcg/actuation nasal allergy symptoms spray,suspension Allergy/AdvReac Type Severity Reaction Status Date / Time bupropion HCl (From Allergy SEIZURES Verified 05/29/24 18:14 Wellbutrin) codeine Allergy Rash Verified 05/29/24 18:14 Family History Mother Diabetes Father Cancer HX Throat CA. Surgical History History of abdominal paracentesis H/O tubal ligation History of liver biopsy Social History adopted: No household members: family housing: other number of children: 3 current occupational status: unemployed pets and animals: Yes history of recent travel: No sexually active: Yes Smoking Status: Current every day smoker tobacco type: cigarettes second hand exposure: Yes alcohol intake: current alcohol intake frequency: a few times a month substance use type: former substance user Date of last use: heroin, marijuana, heroin and methamphetamine seatbelt use: always do you feel safe at home: Yes ROS ROS ED Constitutional Constitutional ED: Denies chills, sweats or weight loss Eyes Eyes: Denies blurry vision, change in vision or diplopia ENT ENT ED: Denies ear pain, rhinorrhea or sore throat Cardiovascular Cardiovascular: Denies chest pain, orthopnea, palpitations, paroxysmal nocturnal dyspnea or racing heartbeat Respiratory/Chest Respiratory/Chest: Denies cough, dyspnea, dyspnea on exertion, orthopnea or paroxysmal nocturnal dyspnea Gastrointestinal Gastrointestinal: Reports abdominal pain and nausea; Denies constipation, diarrhea, melena or vomiting Genitourinary Genitourinary ED: Reports dysuria, hematuria and urinary frequency Musculoskeletal Musculoskeletal: Denies arthralgias, back pain or myalgias Integumentary Denies Abrasions or rash Neurologic Neurologic: Reports weakness; Denies headache(s) or paresthesias Psychiatric Psychiatric: Reports anxiety and depression; Denies suicidal ideation Hematologic/Lymphatic Hematologic/Lymphatic: Reports systems reviewed and no addt'l complaints, except as documented Allergic/Immunologic Allergic/Immunologic ED: Denies mouth swelling or tongue swelling EXAM Physical Exam Const Vital Signs: 05/29/24 18:14 05/29/24 21:16 05/29/24 22:00 Temperature 98.7 F 98.2 F 98.3 F Temperature Source Oral Oral Oral Pulse Rate 72 69 63 Respiratory Rate 16 17 16 Blood Pressure 125/86 H 128/95 H 120/72 Blood Pressure Mean 99 106 88 Pulse Ox 99 98 98 Oxygen Delivery Method Room Air Room Air Room Air 05/29/24 23:00 05/30/24 00:00 05/30/24 02:00 Temperature 97.5 F L 98.6 F Temperature Source Temporal Oral Pulse Rate 69 69 56 L Respiratory Rate 16 16 16 Blood Pressure 93/65 115/66 116/67 Blood Pressure Mean 74 82 83 Pulse Ox 98 98 100 Oxygen Delivery Method Room Air Room Air Positive well nourished, well developed and unkempt Constitutional Narrative: Vital signs are unremarkable. She is not hypoxic. There was an episode at 2300 which she was hypotensive with a reported blood pressure of 93/65. Mean arterial was 74. She has not required oxygen. General Appearance ED: unkempt and well developed; Negative for cyanotic, diaphoretic, NAD or pallor HEENT Reports dry mucous membranes HEENT Narrative: Patient noted to have a bruise on her chin. Ears are normal. TMs are normal. Nares patent. Mucosa is dry. Posterior pharynx is normal. Mouth ED: Yes dry mucous membranes Mouth: dry mucous membranes Eyes PERRL and EOMs intact bilaterally General Eye ED: Negative for pale conjunctiva or scleral icterus Neck no lymphadenopathy, supple and no JVD Chest Wall inspection of chest normal and palpation of chest normal Resp normal respiratory effort and clear to auscultation bilaterally Cardio regular rate, regular rhythm, S1 normal heart sound, S2 normal heart sound and no murmurs GI no masses; Negative for non-tender, non-distended or hepatosplenomegaly Inspection: abdominal distention Auscultation: hypoactive bowel sounds Palpation: soft, tender other (Generalized.), guarding, splenomegaly and rebound tenderness present other (Patient moans with percussion.); Negative for mass Back/Spine no CVA tenderness Extremity normal to inspection General Extremety ED: Negative for edema or tenderness General Extremity: Negative for edema Neuro oriented x3, CN's II-XII intact bilaterally and no sensory deficits noted Sensorium / Orientation: Negative for alert Motor Exam: strength 5/5 throughout Psych Psych Narrative: She is awake. Appearance: unkempt Mood & Affect: depressed Skin no rashes or lesions noted and no wounds General Skin Exam: Negative for jaundice or pallor MDM MDM MDM Narrative Medical decision making narrative: With history of recent alcohol use this may represent acute alcoholic hepatitis also need entertain possibility of pancreatitis. Will obtain liver profile and lipase. Patient significant tenderness and history of ascites with cirrhosis of the liver due to alcoholism need to evaluate for spontaneous bacterial peritonitis. Since patient has urinary symptoms UA was ordered as well.CBC was obtained to assess white count, differential and platelet count. Serum was ordered as well. Lab Data Attestation: I reviewed the patient's lab results. Lab results narrative: CBC is unremarkable. Competence of metabolic panel reveals elevated total bili, AST and ALT as well as alkaline phosphatase. This is chronic. Lipase was slightly elevated 79 is nondiagnostic. Glucose is slightly elevated 107. Renal function is normal. Talk screen is positive for cannabinoids. Ascitic fluid has a low glucose. Protein is normal. Fluid has significant bacteria per lab. Will contact Dr. Mirza for admission. Labs: Laboratory Results - last 24 hr 05/29/24 05/29/24 05/29/24 19:20 19:30 22:01 WBC 7.4 RBC 4.08 L Hgb 12.4 Hct 38.1 MCV 93.4 MCH 30.4 MCHC 32.5 RDW Std Deviation 60.9 H RDW Coeff of Katalina 18.0 H Plt Count 78 L MPV 11.3 Immature Gran % (Auto) 0.400 Neut % (Auto) 67.0 Lymph % (Auto) 19.8 [place] % (Auto) 7.3 Eos % (Auto) 4.6 Baso % (Auto) 0.9 Absolute Neuts (auto) 5.0 Absolute Lymphs (auto) 1.47 Nucleated RBC % 0 Platelet Estimate MKD DEC Sodium 139 Potassium 3.6 Chloride 109 H Carbon Dioxide 25.0 Anion Gap 5 BUN 10 Creatinine 0.96 Estim Creat Clear Calc 67.21 Est GFR (MDRD) Af Amer 79 Est GFR (MDRD) Non-Af 65 BUN/Creatinine Ratio 10.4 Glucose 107 H Calcium 8.9 Total Bilirubin 1.40 H AST 159 H ALT 109 H Alkaline Phosphatase 175 H Total Protein 7.4 Albumin 2.7 L Globulin 4.7 H Albumin/Globulin Ratio 0.6 L Lipase 79 H Serum , Qual NEGATIVE Urine Color Brown Urine Clarity Turbid Urine pH 6.0 Ur Specific [place] 1.020 Urine Protein 100 H Urine Glucose (UA) Normal Urine Ketones 5 H Urine Occult Blood 250 H Urine Nitrite Negative Urine Bilirubin 1 H Urine Urobilinogen 4 H Ur Leukocyte Esterase 500 H Urine RBC > 100 SEEN Urine WBC 25-50 SEEN Ur Squamous Epith Cells 5-10 SEEN Ur Renal Epithelial Cell 0-5 SEEN Calcium Oxalate Crystal RARE Urine Bacteria 1+ Urine Mucus 0 SEEN Fluid pH Fluid Glucose Fluid Total Protein Urine Opiates Screen NEGATIVE Urine Methadone Screen NEGATIVE Ur Barbiturates Screen NEGATIVE Ur Phencyclidine Scrn NEGATIVE Ur Amphetamines Screen NEGATIVE MDMA (Ecstasy) Screen NEGATIVE U Benzodiazepines Scrn NEGATIVE Urine Cocaine Screen NEGATIVE U Cannabinoids Screen POSITIVE H Ur Drug Screen Comment 05/30/24 03:14 WBC RBC Hgb Hct MCV MCH MCHC RDW Std Deviation RDW Coeff of Katalina Plt Count MPV Immature Gran % (Auto) Neut % (Auto) Lymph % (Auto) [place] % (Auto) Eos % (Auto) Baso % (Auto) Absolute Neuts (auto) Absolute Lymphs (auto) Nucleated RBC % Platelet Estimate Sodium Potassium Chloride Carbon Dioxide Anion Gap BUN Creatinine Estim Creat Clear Calc Est GFR (MDRD) Af Amer Est GFR (MDRD) Non-Af BUN/Creatinine Ratio Glucose Calcium Total Bilirubin AST ALT Alkaline Phosphatase Total Protein Albumin Globulin Albumin/Globulin Ratio Lipase Serum , Qual Urine Color Urine Clarity Urine pH Ur Specific [place] Urine Protein Urine Glucose (UA) Urine Ketones Urine Occult Blood Urine Nitrite Urine Bilirubin Urine Urobilinogen Ur Leukocyte Esterase Urine RBC Urine WBC Ur Squamous Epith Cells Ur Renal Epithelial Cell Calcium Oxalate Crystal Urine Bacteria Urine Mucus Fluid pH Cancelled Fluid Glucose 30 L* Fluid Total Protein 0.4 Urine Opiates Screen Urine Methadone Screen Ur Barbiturates Screen Ur Phencyclidine Scrn Ur Amphetamines Screen MDMA (Ecstasy) Screen U Benzodiazepines Scrn Urine Cocaine Screen U Cannabinoids Screen Ur Drug Screen Comment Management Discussion w/another healthcare provider: Hospitalist (Dr. Mirza was made aware the patient. She be admitted.) Procedures Other Procedures Procedure(s): Patient was consented for paracentesis. She states she has had this before. She was explained risk benefits which includes pain, infection, bowel injury, vascular injury. Consent was obtained. Patient was prepped draped sterile manner. Paracentesis was performed. There was minimal amount of fluid. A diagnostic paracentesis was obtained. Fluid is very thick and brown in color. In light of this patient was started on Zosyn which will cover for spontaneous bacterial peritonitis as well as UTI since her urine is suggestive of urinary tract infection. Discharge Plan Dx/Rx/DC Orders Clinical Impression: SBP (spontaneous bacterial peritonitis), Cirrhosis of liver, Urinary tract infection, Abdominal ascites Disposition Disposition: Acute Care Hospital [facility]
[2024-05-30] MEDS: Lidocaine 1% (20 ml mdv) 20 ML Vial 10 ML INFILT (03:20)
[2024-05-30] MEDS: Piperacil/Tazobactam 4.5 GM in 0.9% Normal Saline (100mL MB+) 100 ML IV (03:42)
[2024-05-30 04:11] LABS: Appearance/Body Fluid TURBID; Source- Body Fluid PARACENTESIS
[2024-05-30 04:12] LABS: Body Fluid QC Type(s) BF1Q
[2024-05-30 04:28] LABS: Amphetamine Urine VISTA NEGATIVE (<1000 ng/mL); Barbiturate Urine VISTA NEGATIVE (< 200 ng/mL); Benzodiazepine Urine VISTA NEGATIVE (< 200 ng/mL); Cocaine Urine VISTA NEGATIVE (< 300 ng/mL); Ecstacy Urine VISTA NEGATIVE (< 500 ng/mL); Methadone Urine VISTA NEGATIVE (< 300 ng/mL); PCP Urine VISTA NEGATIVE (< 25 ng/mL); THC Urine VISTA POSITIVE (< 50 ng/mL); Vista UDS pH Range 5
[2024-05-30 04:47] LABS: Protein, Body Fluid 0.4 g/dL (Not Establ.)
[2024-05-30 04:49] LABS: Glucose, Body Fluid 30 mg/dL (40-70)
--- NOTE | 2024-05-30 05:13 | HP.PCM.HOS_ITS ---
HPI - General General Date of Admission: 05/30/24 Date of Service: 05/30/24 Chief Complaint: Abdominal pain, nausea. HPI Narrative The patient is a 48 y/o F w/ PMHx: Obesity, Anxiety and Depression/Bipolar disorder, Polysubstance abuse, Chronic pain syndrome, Chronic anemia/Fe deficiency anemia, SUMAYA noncompliant with PAP therapy, GERD, Hx nephrolithiasis, GERD, Chronic migraines, COPD, Tobacco use, Chronic thrombocytopenia, EtOH abuse/Chronic Hepatitis C with cirrhotic liver disease, serial recent presentations throughout April with abdominal pain and flank pain eventually being diagnosed with obstructive uropathy with eventual intervention who presents to the [facility] ED on 05/30/24 with history of generalized abdominal pain, sudden onset on evening of presentation, continuous, worse with palpation and with movement with associated nausea with no emesis prompting eventual ED evaluation. In the ED she currently notes abdominal pain is still ongoing and rates it 9 out of 10 in severity with some mild nausea. She denies any recent fevers or chills. Patient in the ED is very fatigued and lethargic and following discussions with the ED they did note some concern that she may have taken drugs while in the ED which is pretty similar to her recent presentation were there was concerns about her using drugs in the restroom. Workup in the ED included T98.7, heart rate 72, BP 125/86, respiratory rate 16, 99% on room air with most recent repeat vital signs T98, heart rate 64, BP 105/81, respiratory rate 16, 97% room air, CBC with WBC 7.4, hemoglobin 12.4, MCV 93.4, platelets 78 without marked shift, CMP with chloride 109, glucose 107, T. bili 1.40, AST/ALT 159/109, alk phos 175, lipase 79, negative testing, urinalysis noted to be turbid, specific gravity 1.020, ketone 5, occult blood 250, nitrite negative, leukocyte esterase 500, urine RBCs greater than 100, urine WBCs 25-50 with 1+ urine bacteria, paracentesis fluid culture and assessments pending, UDS with positive cannabis. In the ED patient ministered morphine 4 mg IV x 1 as well as Zosyn 4.5 g IV x 1. [facility] Medical History Urolithiasis Hydronephrosis with renal calculous obstruction Hydroureteronephrosis Ascites of liver Bipolar disorder Anxiety Depression Kidney stones Sleep apnea Complete edentulism, class III Alcohol abuse Chronic pain GERD (gastroesophageal reflux disease) Restless legs Iron deficiency anemia Hyperbilirubinemia Substance abuse Marijuana use MRSA infection History of renal disease Low iron Anemia Hepatitis Migraine headache Seizures History of diverticulitis COPD (chronic obstructive pulmonary disease) Smoker Obesity Thrombocytopenia Polysubstance abuse Cirrhosis of liver Anxiety and depression Hepatitis C, chronic Home Medications ?Medication ?Instructions ?Recorded ?Last Taken ?Type gabapentin 100 mg capsule 100 mg PO Q12H nerve pain 07/20/23 05/16/24 History albuterol sulfate 90 mcg/actuation 2 puff inhalation Q4H PRN 12/04/23 05/16/24 History aerosol inhaler (Ventolin HFA) shortness of breath or wheezing ascorbate calcium (vitamin C) 500 500 mg PO DAILY vitamin 12/04/23 05/16/24 History mg tablet ferrous sulfate 325 mg (65 mg 325 mg PO DAILY supplement 12/04/23 05/16/24 History iron) tablet (FeroSul) buspirone 10 mg tablet 10 mg PO 4X/DAY ANXIETY 04/11/24 05/16/24 History desvenlafaxine succinate 50 mg 50 mg PO DAILY 04/11/24 05/16/24 History tablet,extended release 24 hr melatonin 5 mg tablet 5 mg PO QHS 04/11/24 05/16/24 History topiramate 50 mg tablet 50 mg PO DAILY 04/11/24 05/16/24 History furosemide 40 mg tablet (Lasix) 40 mg PO DAILY DIURETIC #30 tabs 04/13/24 05/16/24 Rx spironolactone 50 mg tablet 50 mg PO BID #60 tabs 04/13/24 05/16/24 Rx pantoprazole 40 mg tablet,delayed 40 mg PO DAILY #30 tabs 05/11/24 05/16/24 Rx release (Protonix) bacitracin zinc 500 unit/gram 1 applic topical BID 14 days #1 05/15/24 05/16/24 Rx topical ointment tube sulfamethoxazole 800 1 tab PO BID #10 tabs 05/15/24 Unknown Rx mg-trimethoprim 160 mg tablet (Bactrim DS) aripiprazole 10 mg tablet 10 mg PO DAILY 05/17/24 05/16/24 History Allergy/AdvReac Type Severity Reaction Status Date / Time bupropion HCl (From Allergy SEIZURES Verified 05/29/24 18:14 Wellbutrin) codeine Allergy Rash Verified 05/29/24 18:14 Family History Mother Diabetes Father Cancer HX Throat CA. Surgical History History of abdominal paracentesis H/O tubal ligation History of liver biopsy Social History adopted: No household members: family housing: other number of children: 3 current occupational status: unemployed pets and animals: Yes history of recent travel: No sexually active: Yes Smoking Status: Current every day smoker tobacco type: cigarettes second hand exposure: Yes alcohol intake: current alcohol intake frequency: a few times a month substance use type: former substance user Date of last use: heroin, marijuana, heroin and methamphetamine seatbelt use: always do you feel safe at home: Yes ROS ROS Narrative Admission Review of Systems: CONSTITUTIONAL: No weight loss, fever, chills, + weakness or fatigue. HEENT: Eyes: No visual loss, blurred vision, double vision or yellow sclerae. Ears, Nose, Throat: No hearing loss, sneezing, congestion, runny nose or sore throat. SKIN: No rash or itching, lesions except + various picked regions on the face and extremities. CARDIOVASCULAR: No chest pain, chest pressure or chest discomfort, palpitations, edema, orthopnea, syncopal events. RESPIRATORY: No shortness of breath, cough or sputum, wheezing, hemoptysis. GASTROINTESTINAL: + anorexia, nausea, abdominal pain, abdominal distention. No vomiting or diarrhea, melena, BRBPR. GENITOURINARY: No dysuria, frequency, urgency or retention. NEUROLOGICAL: No headache, dizziness, syncope, paralysis, ataxia, numbness or tingling in the extremities, focal weakness, change in bowel or bladder control, seizure. MUSCULOSKELETAL: + muscle, back pain, joint pain or stiffness. HEMATOLOGIC: + Chronic anemia, easy bleeding/bruising. LYMPHATICS: No enlarged nodes. No history of splenectomy. PSYCHIATRIC: + History of anxiety and depression. ENDOCRINOLOGIC: No reports of sweating, cold or heat intolerance. No polyuria or polydipsia. ALLERGIES: No history of asthma, hives, eczema or rhinitis. Vital Signs Vital Signs Vital Signs: 05/29/24 18:14 05/29/24 21:16 05/29/24 22:00 Temperature 98.7 F 98.2 F 98.3 F Temperature Source Oral Oral Oral Pulse Rate 72 69 63 Respiratory Rate 16 17 16 Blood Pressure 125/86 H 128/95 H 120/72 Blood Pressure Mean 99 106 88 Pulse Ox 99 98 98 Oxygen Delivery Method Room Air Room Air Room Air 05/29/24 23:00 05/30/24 00:00 05/30/24 02:00 Temperature 97.5 F L 98.6 F Temperature Source Temporal Oral Pulse Rate 69 69 56 L Respiratory Rate 16 16 16 Blood Pressure 93/65 115/66 116/67 Blood Pressure Mean 74 82 83 Pulse Ox 98 98 100 Oxygen Delivery Method Room Air Room Air 05/30/24 04:00 05/30/24 05:01 Temperature 98.0 F Temperature Source Pulse Rate 64 Respiratory Rate 16 Blood Pressure 105/81 H 105/81 H Blood Pressure Mean 89 89 Pulse Ox 97 Oxygen Delivery Method Weight Weight: 169 lb Body Mass Index (BMI) 30.9 Physical Exam Narrative Physical Examination: General: Patient is awake but fatigued and lethargic, able to answer orientation questions at this time appropriately, ED did report some concern about her taking drugs in the ED, currently reports ongoing abdominal pain. Skin: Normal color, normal turgor, no icterus, no cyanosis except various picked regions on the face and extremities, occasional staged ecchymoses, abrasions HEENT: AT/NC, EOMI, PERRLA, dry MM, poor oral care, no carotid bruits or JVD noted. Lungs: Diminished, greater bases, appropriate effort, no rales, ronchi or wheezing. Heart: Regular rate and rhythm; no gallop, rub audible. Abdomen: Soft, diffuse discomfort with palpation with voluntary guarding, mildly distended, very mild tympany, hyperactive BS, positive HM although difficult assessment given pain elicited with deep palpation. Extremities: No cyanosis, clubbing, or edema, see skin. Neurological: Patient is awake but fatigued and lethargic, able to answer orientation questions at this time appropriately, cognitive function improving but still not yet baseline intact, pupils equally reactive to light and accommodation, cranial nerves grossly normal, moving all 4 extremities, no focal deficits, strength moderately to severely globally decreased. Psychiatric: Affect appears flat, lethargic, no acute evidence of depressive or anxiety feelings but does have underlying history. Results Lab / Micro Data 05/29/24 19:20 05/29/24 19:20 Labs: Laboratory Results - last 24 hr 05/29/24 19:20: WBC 7.4, RBC 4.08 L, Hgb 12.4, Hct 38.1, MCV 93.4, MCH 30.4, MCHC 32.5, RDW Std Deviation 60.9 H, RDW Coeff of [place] 18.0 H, Plt Count 78 L, MPV 11.3, Immature Gran % (Auto) 0.400, Neut % (Auto) 67.0, Lymph % (Auto) 19.8, [place] % (Auto) 7.3, Eos % (Auto) 4.6, Baso % (Auto) 0.9, Absolute Neuts (auto) 5.0, Absolute Lymphs (auto) 1.47, Nucleated RBC % 0, Platelet Estimate MKD DEC, Sodium 139, Potassium 3.6, Chloride 109 H, Carbon Dioxide 25.0, Anion Gap 5, BUN 10, Creatinine 0.96, Estim Creat Clear Calc 67.21, Est GFR (MDRD) Af Amer 79, Est GFR (MDRD) Non-Af 65, BUN/Creatinine Ratio 10.4, Glucose 107 H, Calcium 8.9, Total Bilirubin 1.40 H, AST 159 H, ALT 109 H, Alkaline Phosphatase 175 H, Total Protein 7.4, Albumin 2.7 L, Globulin 4.7 H, Albumin/Globulin Ratio 0.6 L, Serum , Qual NEGATIVE 05/29/24 19:30: Urine Color Brown, Urine Clarity Turbid, Urine pH 6.0, Ur Specific [place] 1.020, Urine Protein 100 H, Urine Glucose (UA) Normal, Urine Ketones 5 H, Urine Occult Blood 250 H, Urine Nitrite Negative, Urine Bilirubin 1 H, Urine Urobilinogen 4 H, Ur Leukocyte Esterase 500 H, Urine RBC > 100 SEEN, Urine WBC 25-50 SEEN, Ur Squamous Epith Cells 5-10 SEEN, Ur Renal Epithelial Cell 0-5 SEEN, Calcium Oxalate Crystal RARE, Urine Bacteria 1+, Urine Mucus 0 SEEN, Urine Opiates Screen NEGATIVE, Urine Methadone Screen NEGATIVE, Ur Barbiturates Screen NEGATIVE, Ur Phencyclidine Scrn NEGATIVE, Ur Amphetamines Screen NEGATIVE, MDMA (Ecstasy) Screen NEGATIVE, U Benzodiazepines Scrn NEGATIVE, Urine Cocaine Screen NEGATIVE, U Cannabinoids Screen POSITIVE H, Ur Drug Screen Comment 05/29/24 22:01: Lipase 79 H 05/30/24 03:14: Fluid pH Cancelled, Fluid Glucose 30 L*, Fluid Total Protein 0.4 Assessment & Plan Assessment/Plan (1) SBP (spontaneous bacterial peritonitis): PLAN: Plan The patient is a 48 y/o F w/ PMHx: Obesity, Anxiety and Depression/Bipolar disorder, Polysubstance abuse, Chronic pain syndrome, Chronic anemia/Fe deficiency anemia, SUMAYA noncompliant with PAP therapy, GERD, Hx nephrolithiasis, GERD, Chronic migraines, COPD, Tobacco use, Chronic thrombocytopenia, EtOH abuse/Chronic Hepatitis C with cirrhotic liver disease, serial recent presentations throughout April with abdominal pain and flank pain eventually being diagnosed with obstructive uropathy with eventual intervention who presents to the [facility] ED on 05/30/24 with history of generalized abdominal pain, sudden onset on evening of presentation, continuous, worse with palpation and with movement with associated nausea with no emesis prompting eventual ED evaluation. #1. Intractable abdominal pain suspected secondary to SBP complicated by underlying chronic hepatitis C with cirrhotic liver disease: Given stable vital signs will admit to medical surgical floor, awaiting paracentesis cultures initiated per ED, will additionally request blood culture x 2, will initiate empiric antibiotic therapy with IV Zosyn and additionally request MRSA screen on paracentesis fluids given patient frequency of recent hospitalizations to be cautious, will trend CBC as well as CMP, will maintain n.p.o. status until abdominal pain is resolving, will have pain regimen/antiemetic regimen, judiciously hydrate, given low normal BP will hold hypertensive regimen, monitor for any worsening hypotension, additionally will request CT scan to be cautious, maintain on IV PPI. #1. Recent obstructive uropathy with right renal and distal ureteral stones with hydroureteronephrosis with 0.8 cm stone noted in the lower pole of the right kidney and right distal ureteral region with abnormal UA: Recent presentation with CT abdomen pelvis with right renal and distal ureteral stones with hydronephrosis, s/p 05/15/24 Cystoscopy right stent placement, re-admitted 8/22/24 with concern of possible UTI; however, repeat cultures with only lactobacillus, discharged on 05/21/24, will need to assure follow-up with Urology given recent stent. UA upon current presentation with occult blood, nitrite negative however leukocyte esterase 500 with urine RBCs greater than 100 and urine WBCs 25-50 with 1+ bacteria, will request urine culture, as noted above maintained on broad-spectrum antibiotic therapy. #2. History alcohol abuse/chronic hepatitis C with underlying cirrhotic liver disease associated with chronic mild hyperbilirubinemia/transaminitis, chronic thrombocytopenia: Patient with routine paracenteses at least monthly, given SBP concerns paracentesis performed in the ED with fluids culture pending as noted but high suspicion, given low normal BP in this acute setting we will temporally hold spironolactone and Lasix, not on any Xifaxan or lactulose per current list, encourage continued outpatient follow-up with GI/PCP as previously arranged, trend CMP. #3. Polysubstance abuse, history of alcohol abuse with associated chronic thrombocytopenia: Encourage complete sobriety and clean status, recent presentation with high suspicion substance abuse while inpatient, prior admission UDS w/ noted amphetamine, MDMA, cannabis. UDS in the ED with noted cannabis. #4. Chronic anemia/iron deficiency anemia: Admission hemoglobin 12.4, MCV 93.4, baseline more recently appears primarily -12, continue iron supplementation, trend CBC. #5. Chronic COPD: Not on any chronic regimen, encouraged tobacco cessation, PRN albuterol, HOB, IS parameters. #6. Tobacco Abuse: Encouraged cessation, inpatient consultation per RT, NR if desired. #7. Hypertension: Given BP low normal will temporally hold spironolactone and Lasix in this acute setting, add back once appropriate. #8. Hyperlipidemia: Per current list on a regimen, defer to outpatient. #9. Anxiety and Depression/Bipolar disorder: Continue patient home BuSpar as well as Effexor home regimen, encourage continued outpatient follow-up/therapy as previously recommended/arranged. #10. Chronic migraines: We will continue patient home Topamax regimen. #11. Obesity: Weight loss and lifestyle changes encouraged. #12. SUMAYA: Noncompliant with PAP therapy. #13. GERD: Will maintain on IV PPI #14. DVT prophylaxis: SCDs, defer chemoprophylaxis given hematuria but also evaluation pending for #1 as noted. Charges/Coding Visit Charges Inpatient E&M: 61102 Init Hosp L3
[2024-05-30 05:21] LABS: Red Cell Count/Body Fluid 4 /mm3
[2024-05-30 05:22] LABS: White Blood Count/Body Fluid 14 /mm3
[2024-05-30] MEDS: Acetaminophen 325 MG Tablet 650 MG PO (06:17)
[2024-05-30] MEDS: oxyCODONE 5 MG Tablet PO (06:17)
[2024-05-30] MEDS: 0.9% Normal Saline (1000mL) 1,000 ML 100 ML IV (06:24)
[2024-05-30 06:59] LABS: Phosphorus 1.9 mg/dL (2.5-4.9)
[2024-05-30 07:52] LABS: Procalcitonin 0.11 ng/mL (0.00-0.09)
[2024-05-30] MEDS: Ferrous Sulfate 325 MG Tablet PO (08:23)
[2024-05-30] MEDS: Ascorbic Acid 500 MG Tablet PO (08:23)
[2024-05-30] MEDS: BACITRACIN 15 GM Tube 1 APPLIC TOPICAL ×2 (08:23→19:58)
[2024-05-30] MEDS: Venlafaxine XR 37.5 MG Capsule PO (08:23)
[2024-05-30] MEDS: Pantoprazole Sodium 40 MG in 0.9% Normal Saline (100mL MB+) 100 ML 330 MG IV ×2 (08:23→19:56)
[2024-05-30] MEDS: ARIPiprazole 10 MG Tablet PO (08:23)
[2024-05-30] MEDS: Topiramate 50 MG Tablet PO (08:23)
[2024-05-30] MEDS: busPIRone 5 MG Tablet 10 MG PO ×4 (08:23→21:40)
--- NOTE | 2024-05-30 08:37 | PN.HOSP_ITS ---
Hospitalist Note The patient was seen and examined Presenting complaint, H&P, labs and imaging reviewed. Summary 48-year-old female with history of decompensated cirrhosis due to chronic hep C/KEYES and alcohol came to ED for abdominal pain which is acute on chronic. Described abdominal pain as diffuse and generalized with sudden onset on the evening of presentation. On exam Per abdomen: Rebound tenderness present on left upper and left lower quadrant and right lower quadrant. No guarding or rigidity. Lungs: Clear. Heart S1-S2 regular, sinus rhythm. Patient had diagnostic paracentesis in the ED. Fluid analysis reviewed. No ascites fluid albumin therefore ordered Fluid glucose is critically low therefore suspicion of SBP. Fluid total protein 0.4 which also favors SBP. But fluid WBC 14. Differential could not be performed. As per definition, SBP is more than 250 neutrophils and fluids therefore she does not meet the definition Patient denies burning micturition increased frequency or urgency but UA analysis shows WBC 25-50 cells, RBC more than 100 cells, squamous epithelial 5- 10 cells. Nitrite negative. LE 500. patient empirically on IV Zosyn. Will follow culture.
[2024-05-30 09:10] LABS: AST(SGOT) 147 U/L (15-37); Alanine Aminotransfer ALT/SGPT 99 U/L (13-56); Albumin, Serum 2.3 g/dL (3.2-5.0); Alkaline Phosphatase 130 U/L (45-117); Bilirubin, Direct 0.76 mg/dL (0.00-0.30); Globulin 3.8 g/dL (2.2-4.2); Protein, Total 6.1 g/dL (6.4-8.2)
[2024-05-30] MEDS: Gabapentin 100 MG Capsule PO ×2 (09:14→20:02)
[2024-05-30] MEDS: Morphine 2 MG/ML Syringe IV ×2 (11:45→20:02)
--- NOTE | 2024-05-30 11:59 | CASEMGMT ---
Readmission Note: Index: 05/17-05/21/24. Dx: Right Flank Pain Readmission: 05/30/24. Dx: SPB Pt has a history of noncompliance and polysubstance abuse. During the index admission, the pt was caught taking personal drugs in her room. Per the ED charting, the pt was also taking personal drugs in the ED. The pt is homeless. During the initial admission, SW attempted to provide the patient with sheltering options. At that time, the [facility] stated that they would take the pt back, however, they were full and could not. SW suggested the pt reach out to [facility] for their housing program to see if they can assist the pt. This RN CM to pt room at this time. Pt states that she had an appt with 180 that she missed. Pt states that she was taking some of her prescriptions but not all. Pt states that she is not sure what she will do at the time of DC. Pt reassured that CM and SW will work on a DC plan for the pt and do what we can to help. Pt thanks this NASH SOUZA and denies further questions or concerns at this time.
[2024-05-30] MEDS: Piperacil/Tazobactam 3.375 GM in 0.9% Normal Saline (50mL MB+) 50 ML IV ×2 (14:59→20:21)
[2024-05-30] MEDS: MELATONIN 10 MG TABLET 5 MG PO (19:59)
[2024-05-31 02:31] VITALS: BP 111/60; PULSE 72; RESP 16; TEMP 36.7; O2SAT 96
[2024-05-31] MEDS: oxyCODONE 5 MG Tablet PO (04:23)
[2024-05-31 04:41] LABS: Absolute Lymphocyte Count 1.39 X10^3/uL (0.83-4.51); Absolute Neutrophil Count 3.9 X10^3/uL (2.0-7.7); Basophil# 0.05 X10^3/uL; Basophil% 0.8 % (0-1); Eosinophil# 0.39 X10^3/uL; Hemoglobin 10.1 g/dL (12.0-15.0); Lymphocyte # 1.39 X10^3/ul (0.83-4.51); Lymphocyte % 21.5 % (19-41); Mean Corp Hgb Conc 32.6 g/dL (32-36); Mean Corpuscular Hgb 30.9 pg (27.0-32.0); Mean Corpuscular Volume 94.8 fL (81-99); Monocyte# 0.72 X10^3/uL; Monocyte% 11.1 % (0-10); NRBC Flagged by Analyzer 0 % (0-5); Neutrophil % 60.1 % (47-70); POSITIVE COUNT YES; Platelet Count 64 K/mm3 (150-450); RBC Distribution Width CV 17.9 % (11.6-14.6); RBC Distribution Width SD 62.1 fl (35.1-43.9); Red Blood Count 3.27 M/mm3 (4.2-5.4); White Blood Count 6.5 K/mm3 (4.4-11.0)
[2024-05-31 05:02] LABS: ALB/GLOB Ratio 0.6 RATIO (0.9-2.4); AST(SGOT) 138 U/L (15-37); Alanine Aminotransfer ALT/SGPT 93 U/L (13-56); Albumin, Serum 2.1 g/dL (3.2-5.0); Alkaline Phosphatase 135 U/L (45-117); Anion Gap 5 (5-15); BUN 8 mg/dL (7-18); BUN/Creat Ratio 9.1 RATIO (10-20); Calcium,Total 8.1 mg/dL (8.5-10.1); Chloride 112 mmol/L (98-107); Creatinine, Serum 0.88 mg/dL (0.55-1.02); EST Glomerular Filtration Rate 72 mL/min (>60); Est Glom Filt Rate - Afr Amer 88 mL/min (>60); Estimated Creatinine Clearance 70.78 ml/min; Globulin 3.8 g/dL (2.2-4.2); Glucose 127 mg/dL (74-106); Potassium 3.5 mmol/L (3.5-5.1); Protein, Total 5.9 g/dL (6.4-8.2); Sodium Level 139 mmol/L (136-145)
[2024-05-31] MEDS: Piperacil/Tazobactam 3.375 GM in 0.9% Normal Saline (50mL MB+) 50 ML IV (05:28)
[2024-05-31 05:29] VITALS: BMI 31.8
[2024-05-31] MEDS: 0.9% Saline Lock 10 ML Syringe IV (05:30)
[2024-05-31] MEDS: busPIRone 5 MG Tablet 10 MG PO (08:16)
[2024-05-31] MEDS: Ferrous Sulfate 325 MG Tablet PO (08:16)
[2024-05-31] MEDS: Ascorbic Acid 500 MG Tablet PO (08:16)
[2024-05-31] MEDS: Topiramate 50 MG Tablet PO (08:16)
[2024-05-31] MEDS: ARIPiprazole 10 MG Tablet PO (08:16)
[2024-05-31] MEDS: Venlafaxine XR 37.5 MG Capsule PO (08:17)
[2024-05-31] MEDS: BACITRACIN 15 GM Tube 1 APPLIC TOPICAL (08:17)
[2024-05-31 08:19] VITALS: BP 105/66; PULSE 70; RESP 18; TEMP 36.7; O2SAT 98
[2024-05-31 08:53] LABS: Pathologist Comment/Body Fluid Reviewed
[2024-05-31 09:34] VITALS: O2SAT 99
--- NOTE | 2024-05-31 10:07 | CASEMGMT ---
Social Work SHELL met with pt and introduced self and role of SW. SW known to this worker from previous visits. Pt dc from [facility] to her dgt's home on 04/13/24. DC from [facility] to [facility] on 05/15. DC from [facility] [address] street on 05/21. SW completed SDOH assessment. See documentation. SHELL attempted to explore pt's current living situation. When asked where she has been staying since last hospitalization, pt stating I don't know where I've been here, there and anywhere. SW questioned pt further and pt states she has slept on the side of the road at times. SHELL spoke with pt about [facility] which would be an intermediate level of care at [facility]. Pt initially denied going to an ECF. SW provided additional information to pt about this unit and discuss benefit of having housing, food, medical care and support. Pt becoming more agreeable. SHELL explained that pt's SSI would go to the SNF and insurance would cover the remainder of the cost. Pt becoming very frustrated at this worker stating she would not pay them. SW encouraged pt to consider this as rent payment and food costs. Pt adamantly refusing this discharge option. SHELL spoke with pt regarding shelters. Pt stating she will not go back to [facility] because they threw my stuff away. Pt also refusing to go out of [facility] to a residential as she does not have transportation to get back to [place]. SHELL [facility] with [facility] and pt is agreeable to this option. SHELL placed phone call to [facility] and pt spoke with intake director. Pt becoming very upset on the phone and yelling at intake director. SHELL spoke with intake again and she reports they do not have a bed available and she offered to help pt find residential out of [facility] but pt adamantly refused. SHELL called [facility] and spoke with Diamante. They do have a bed available and would be willing to accept pt today before 4pm. SHELL met with pt and informed of this. Pt again refusing to go to [facility]. SHELL reviewed discharge options with pt again. [facility] ECF, pt declined. [facility], pt declined. Out of [facility] residential, pt declined. Pt stating she will return to the streets and figure it out. SHELL provided pt with written [facility] information and [facility] card with served meal info. SHELL called pt Chaz Hobbs to discuss options. Krista stated that she spoke with pt at 9am this morning and pt was willing to go to ECF. SHELL explained that pt is now refusing. Krista states that pt informed her that pt has been staying at different friends houses in the community. Krista with no other discharge options. Pt has applied for [facility] and has been accepted and is on the wait list. There is an unspecified amount of time until pt will be chosen for housing. Referral made to [facility] on 05/18 for the [place] Waiver program. Follow up call to [facility] at this time and pt's case has not been opened yet. Physician and nursing updated that pt is refusing all residential placement and ECF placement and will continue homelessness at discharge. MIRIAM Larson
[2024-05-31] MEDS: Gabapentin 100 MG Capsule PO (10:14)
[2024-05-31] MEDS: Pantoprazole Sodium 40 MG in 0.9% Normal Saline (100mL MB+) 100 ML 330 MG IV (10:14)
--- NOTE | 2024-05-31 13:14 | PCM.DC ---
Discharge Instructions Diet Discharge Diet: Low fat / Low cholesterol and 2000 mg Sodium Diet Activity Discharge Activity: Return to Normal Activity Weight Bearing Status: Weight bearing as tolerated Dressing / Incision Call your doctor if you observe: Fever of 101 or Higher, Coldness, Increased Pain, Numbness or Tingling, Change in Color, Inability to urinate, Inability to have a bowel movement, Shortness of breath, Dizziness, Fainting spells, Swelling in the ankles, Chest pain, Prolonged hiccupping, Increased palpitations (irregular heartbeat) and Calf discomfort Follow Up Care When: IN 2 WEEKS Test Results: Test results from this visit will be discussed in further detail at your follow-up appointment, if applicable. Discharge Plan Admission Admit Date/Time: 05/30/24 05:13 Attending Provider: Son Adams Primary Care Provider: Ang Acosta Consulting Providers: Sowmya Mirza Discharge Orders/Prescriptions Prescriptions: New ciprofloxacin HCl [Cipro] 500 mg tablet 500 mg PO BID 6 Days Qty: 12 0RF lactulose 10 gram/15 mL solution 10 g PO TID 30 Days Qty: 3785 4RF Continued gabapentin 100 mg capsule 100 mg PO Q12H bacitracin zinc 500 unit/gram Ointment 1 applic topical BID 14 Days Qty: 1 0RF Protocol: *Topical Application Instructions APPLICATION INSTRUCTIONS: affected area Rx Instructions: Apply to chin wound and BL foot wounds. Avoid picking skin. albuterol sulfate [Ventolin HFA] 90 mcg/actuation HFA aerosol inhaler 2 puff inhalation Q4H PRN (Reason: shortness of breath or wheezing) ferrous sulfate [FeroSul] 325 mg (65 mg iron) tablet 325 mg PO DAILY ascorbate calcium (vitamin C) 500 mg tablet 500 mg PO DAILY buspirone 10 mg tablet 10 mg PO 4X/DAY topiramate 50 mg tablet 50 mg PO DAILY desvenlafaxine succinate 50 mg tablet extended release 24 hr 50 mg PO DAILY melatonin 5 mg tablet 5 mg PO QHS spironolactone 50 mg Tablet 50 mg PO BID Qty: 60 1RF furosemide [Lasix] 40 mg tablet 40 mg PO DAILY Qty: 30 0RF Rx Instructions: start on 04/14/24 pantoprazole [Protonix] 40 mg tablet,delayed release (DR/EC) 40 mg PO DAILY Qty: 30 0RF aripiprazole 10 mg tablet 10 mg PO DAILY Patient Comments: pt thinks she takes this, but not sure Discontinued sulfamethoxazole-trimethoprim [Bactrim DS] 800-160 mg tablet 1 tab PO BID Qty: 10 0RF Patient Comments: pt sis not chart picker Referrals / Follow Up: Tabby Bowers MD [Med Staff - Active Staff] - Within 1 Month (For kidney stone and recurrent UTI.) Ang Acosta MD [Primary Care Provider] - Son Adams MD [Med Staff - Active Staff] - Within 1 Month (GI office) Disposition Disposition (needs filled in before D/C Order can be placed): Home, Self Care
--- NOTE | 2024-05-31 13:28 | PCM.DC.SUM ---
Providers Date of Admission: 05/30/24 Date of Discharge: 05/31/24 Primary Care Physician: Dr. Ang Acosta MD Reason For Visit: SBP Diagnosis Discharge Diagnosis (1) SBP (spontaneous bacterial peritonitis): Status: Acute Code(s): K65.2 - Spontaneous bacterial peritonitis Plan 48-year-old female with history of decompensated cirrhosis due to chronic hep C/KEYES and alcohol came to ED for abdominal pain which is acute on chronic. Described abdominal pain as diffuse and generalized with sudden onset on the evening of presentation. She was further admitted for concern of SBP. 1. Diffuse abdominal pain, now received left upper quadrant possible left-sided colitis, SBP ruled out: Patient was admitted on [facility] floor.Patient had diagnostic paracentesis in the ED. Fluid analysis reviewed. No ascites fluid albumin therefore ordered but seems still not collected. Fluid glucose is critically low therefore suspicion of infection. Fluid total protein 0.4. But fluid WBC 14. Differential could not be performed. As per definition, SBP is more than 250 neutrophils is peritoneal fluids therefore she does not meet the definition. Fluid Gram stain discussed with the microbiology and is Sterets more rare gram-positive elida. There is concerned patient might have colitis/UTI. Patient denies burning micturition increased frequency or urgency but UA analysis shows WBC 25-50 cells, RBC more than 100 cells, squamous epithelial 5-10 cells. Nitrite negative. LE 500. patient empirically on IV Zosyn. Therefore decided to treat empirically with Cipro 500 mg for 6 more days and Flagyl 500 mg 3 times daily for 5 days. Patient recently had CT abdomen and abdominal ultrasound on 05/13/2024 which reported normal stomach and small intestine and colon. She also had abdominal ultrasound on 05/15/2024 and found not no fluid for safe paracentesis. 2. Decompensated cirrhosis with portal hypertension, splenomegaly due to chronic alcohol use/chronic hep C and KEYES related cirrhosis: Patient on diuretic furosemide and spironolactone continued. Prescription for lactulose given. Advised follow-up in GI office in 1 month. 3. Chronic mixed anemia of chronic disease/iron-deficiency anemia iron supplement. 4. Polysubstance use: U tox was noted with cannabis but recently on 05/13 was noted to be positive for amphetamine, ecstasy and cannabinoids. Patient has a lot of social issues. 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 Recent history of obstructive uropathy with right distal ureter stone 0.8 cm status post stent in April 2024 and recurrent UTI: Advised to follow-up with Dr. Dawson. 6. Multiple other comorbidities include COPD, chronic smoking/tobacco use hypertension dyslipidemia, anxiety depression bipolar disorder: Advised follow-up with PCP. Discharge medication reconciliation done. Discharge follow-up instructions completed. Discharge process discussed with the patient and all questions were answered to patient's satisfaction. Follow with PCP in 1 to 2 weeks Total time spent, exact 35 minutes on discharge meds reconciliation, examination, coordination of care with nurses and ancillary staff, review of imaging and blood test and discussion with the patient on follow-up instructions. Medications at Discharge Home Medications gabapentin 100 mg capsule 100 mg PO Q12H nerve pain 07/20/23 albuterol sulfate 90 mcg/actuation aerosol inhaler (Ventolin HFA) 2 puff inhalation Q4H PRN shortness of breath or wheezing 12/04/23 ascorbate calcium (vitamin C) 500 mg tablet 500 mg PO DAILY vitamin 12/04/23 ferrous sulfate 325 mg (65 mg iron) tablet (FeroSul) 325 mg PO DAILY supplement 12/04/23 buspirone 10 mg tablet 10 mg PO 4X/DAY ANXIETY 04/11/24 desvenlafaxine succinate 50 mg tablet,extended release 24 hr 50 mg PO DAILY 04/11/24 melatonin 5 mg tablet 5 mg PO QHS 04/11/24 topiramate 50 mg tablet 50 mg PO DAILY 04/11/24 furosemide 40 mg tablet (Lasix) 40 mg PO DAILY DIURETIC #30 tabs 04/13/24 spironolactone 50 mg tablet 50 mg PO BID #60 tabs 04/13/24 pantoprazole 40 mg tablet,delayed release (Protonix) 40 mg PO DAILY #30 tabs 05/11/24 bacitracin zinc 500 unit/gram topical ointment 1 applic topical BID 14 days #1 tube 05/15/24 aripiprazole 10 mg tablet 10 mg PO DAILY 05/17/24 ciprofloxacin HCl 500 mg tablet (Cipro) 500 mg PO BID 6 days #12 tabs 05/31/24 lactulose 10 gram/15 mL oral solution 10 g (15 mL) PO TID 1 month #3,785 mL 05/31/24 metronidazole 500 mg tablet 500 mg PO Q8H 5 days #15 tabs 05/31/24 Physical Exam Narrative Seen and examined. Patient does not look like in abdominal distress. More awake and alert. General: Alert, Oriented x3, Cooperative HEENT: Atraumatic, PERRLA, EOMI, Normocephalic Oral: No Gingival or Mucosal Lesions/ Ulcerations Neck: Supple, No JVD, Negative Carotid Bruits Chest wall/Lungs: Air entry diminished in bilateral lung bases. No crepitation/rhonchi Cardiovascular: Regular rate, Regular Rhythm, Normal S1, Normal S2, No M/G/R Abdomen: Bowel Sounds Present, Soft, mild tenderness in the left upper quadrant, Non-Distended : No dysuria. No renal angle tenderness. No suprapubic tenderness. Extremities: No edema, Capillary Refill Less than 3 Seconds Skin: No rashes, No breakdown Musculoskeletal: No Tenderness to Palpation of Joints or Extremities Neurological: Cranial nerves II-XII grossly intact, DTR 2+/4. No acute focal neurological deficit. Psych/Mental Status: Normal Affect, Appropriate. Medical Records Data Homelessness:: Unsheltered Weight / BMI Weight Weight: 173 lb 4.533 oz Body Mass Index (BMI) 31.8 ABG / Lab / Microbiology Data 05/31/24 04:26 05/31/24 04:26 Laboratory: Laboratory Results - last 24 hr 05/30/24 03:14: Fl Pathologist Comment Reviewed 05/31/24 04:26: WBC 6.5, RBC 3.27 L, Hgb 10.1 L, Hct 31.0 L, MCV 94.8, MCH 30.9, MCHC 32.6, RDW Std Deviation 62.1 H, RDW Coeff of Katalina 17.9 H, Plt Count 64 L, MPV 11.0, Immature Gran % (Auto) 0.500, Neut % (Auto) 60.1, Lymph % (Auto) 21.5, [place] % (Auto) 11.1 H, Eos % (Auto) 6.0 H, Baso % (Auto) 0.8, Absolute Neuts (auto) 3.9, Absolute Lymphs (auto) 1.39, Nucleated RBC % 0, Sodium 139, Potassium 3.5, Chloride 112 H, Carbon Dioxide 22.0, Anion Gap 5, BUN 8, Creatinine 0.88, Estim Creat Clear Calc 70.78, Est GFR (MDRD) Af Amer 88, Est GFR (MDRD) Non-Af 72, BUN/Creatinine Ratio 9.1 L, Glucose 127 H, Calcium 8.1 L, Total Bilirubin 1.30 H, AST 138 H, ALT 93 H, Alkaline Phosphatase 135 H, Total Protein 5.9 L, Albumin 2.1 L, Globulin 3.8, Albumin/Globulin Ratio 0.6 L Microbiology: Microbiology 05/30/24 03:14 Fluid - Paracentesis (Abd) Gram Stain - Final D/C Instructions Discharge Diet: Low fat / Low cholesterol and 2000 mg Sodium Diet Weight Bearing Status: Weight bearing as tolerated Call your doctor if you observe: Fever of 101 or Higher, Coldness, Increased Pain, Numbness or Tingling, Change in Color, Inability to urinate, Inability to have a bowel movement, Shortness of breath, Dizziness, Fainting spells, Swelling in the ankles, Chest pain, Prolonged hiccupping, Increased palpitations (irregular heartbeat) and Calf discomfort When: IN 2 WEEKS Meaningful Use Info Meaningful Use Meaningful Use Diagnoses (Choose all that apply): None applicable Ischemic Stroke Statin Dosing Therapy Reference: STATIN DOSE THERAPY REFERENCE: * Patients > 75 years receive moderate or high dose statin therapy. * Patients 75 years or YOUNGER should receive HIGH intensity statin dose unless contraindicated. You will be required to document reason for non-treatment if statin daily dose does not meet guidelines. HIGH DOSE STATIN THERAPY DAILY Atorvastatin > than or = to 40 mg Rosuvastatin > than or = to 20 mg Amlodipine + Atorvastatin > than or = to 2.5/40 mg Ezetimibe + Simvastatin 10/80 mg Simvastatin 80mg Discharge Plan Admission Admit Date/Time: 05/30/24 05:13 Attending Provider: Son Adams Primary Care Provider: Ang Acosta Consulting Providers: Sowmya Mirza Discharge Orders/Prescriptions Prescriptions: New ciprofloxacin HCl [Cipro] 500 mg tablet 500 mg PO BID 6 Days Qty: 12 0RF lactulose 10 gram/15 mL solution 10 g PO TID 30 Days Qty: 3785 4RF metronidazole 500 mg tablet 500 mg PO Q8H 5 Days Qty: 15 0RF Continued gabapentin 100 mg capsule 100 mg PO Q12H bacitracin zinc 500 unit/gram Ointment 1 applic topical BID 14 Days Qty: 1 0RF Protocol: *Topical Application Instructions APPLICATION INSTRUCTIONS: affected area Rx Instructions: Apply to chin wound and BL foot wounds. Avoid picking skin. albuterol sulfate [Ventolin HFA] 90 mcg/actuation HFA aerosol inhaler 2 puff inhalation Q4H PRN (Reason: shortness of breath or wheezing) ferrous sulfate [FeroSul] 325 mg (65 mg iron) tablet 325 mg PO DAILY ascorbate calcium (vitamin C) 500 mg tablet 500 mg PO DAILY buspirone 10 mg tablet 10 mg PO 4X/DAY topiramate 50 mg tablet 50 mg PO DAILY desvenlafaxine succinate 50 mg tablet extended release 24 hr 50 mg PO DAILY melatonin 5 mg tablet 5 mg PO QHS spironolactone 50 mg Tablet 50 mg PO BID Qty: 60 1RF furosemide [Lasix] 40 mg tablet 40 mg PO DAILY Qty: 30 0RF Rx Instructions: start on 04/14/24 pantoprazole [Protonix] 40 mg tablet,delayed release (DR/EC) 40 mg PO DAILY Qty: 30 0RF aripiprazole 10 mg tablet 10 mg PO DAILY Patient Comments: pt thinks she takes this, but not sure Discontinued sulfamethoxazole-trimethoprim [Bactrim DS] 800-160 mg tablet 1 tab PO BID Qty: 10 0RF Patient Comments: 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
== END 2024-05-31 14:10 | disposition home or self-care (01) | DRG 249 ==
LOC: ED 05-30 04:53 → ICU 05-30 05:20
PROVIDERS: Admitting Provider Family Medicine; Emergency Provider Emergency Medicine; PCP Family Medicine; Visit Provider Internal Medicine
DX: K52.9 Noninfective gastroenteritis and colitis, unspecified (principal); E43 Unspecified severe protein-calorie malnutrition; K76.6 Portal hypertension; K70.31 Alcoholic cirrhosis of liver with ascites; D63.8 Anemia in other chronic diseases classified elsewhere; I95.9 Hypotension, unspecified; F31.9 Bipolar disorder, unspecified; J44.9 Chronic obstructive pulmonary disease, unspecified; F19.10 Other psychoactive substance abuse, uncomplicated; I10 Essential (primary) hypertension; F10.11 Alcohol abuse, in remission; E66.9 Obesity, unspecified; K75.81 Nonalcoholic steatohepatitis (NASH); D50.9 Iron deficiency anemia, unspecified; B18.2 Chronic viral hepatitis C; E78.5 Hyperlipidemia, unspecified; G47.33 Obstructive sleep apnea (adult) (pediatric); G43.709 Chronic migraine without aura, not intractable, without status migrainosus; K21.9 Gastro-esophageal reflux disease without esophagitis; F17.210 Nicotine dependence, cigarettes, uncomplicated; N39.0 Urinary tract infection, site not specified; R16.1 Splenomegaly, not elsewhere classified; G89.4 Chronic pain syndrome; Z68.30 Body mass index [BMI] 30.0-30.9, adult; Z79.899 Other long term (current) drug therapy
CPT/HCPCS: 36415; 49082; 80053; 80076; 80307; 81001; 82945; 83690; 83735; 83986; 84100; 84145; 84157; 84703; 85025; 87070; 87075; 87077; 87086; 87186; 87205; 89050; 99285; 99406; J7030; A4216

== ENCOUNTER 2024-06-06 04:36 | Emergency (ER) | payer MEDICAID, SELFPAY ==
[2024-06-06 04:37] VITALS: BP 137/74; PULSE 54; RESP 18; TEMP 36.6; O2SAT 100; BMI 31.7
[2024-06-06 04:40] VITALS: BP 137/74; PULSE 54; RESP 18; TEMP 36.6; O2SAT 100
--- NOTE | 2024-06-06 06:15 | ED.VIS.GI ---
HPI HPI - GI History of Present Illness Chief Complaint: Abd Pain Informant: patient Abdominal Pain/Flank Pain Onset: Yesterday Context: Gradual Onset Timing: Continuous Quality: - (Pinching) Location: Diffuse Worsened by: Nothing Relieved by: Nothing Nausea/Vomiting/Emesis GI Symptom: Positive for Nausea; Negative for Vomiting Diarrhea/Melena/Hematochezia GI Symptom: Negative for Diarrhea, Melena or Hematochezia Associated Symptoms Associated Symptoms: Positive for Hematuria; Negative for Dysuria or Frequency Narrative Narrative: Patient presents with abdominal pain that has been getting progressively worse since yesterday. Patient states she had a ureteral stent placed at [facility] yesterday. Patient states that since that time she has been having worsening pain. Patient states that she has been having some hematuria. Patient describes her pain as pinching. Patient states it is diffuse across her abdomen but worse on the left. Patient thinks her stent was placed on the right. Patient states nothing makes her pain better and nothing makes it worse. Patient admits to some subjective chills but denies any fevers. Patient admits to some nausea but denies any vomiting. PFSH PFSH Medical History Urolithiasis Hydronephrosis with renal calculous obstruction Hydroureteronephrosis Ascites of liver Bipolar disorder Anxiety Depression Kidney stones Sleep apnea Complete edentulism, class III Alcohol abuse Chronic pain GERD (gastroesophageal reflux disease) Restless legs Iron deficiency anemia Hyperbilirubinemia Substance abuse Marijuana use MRSA infection History of renal disease Low iron Anemia Hepatitis Migraine headache Seizures History of diverticulitis COPD (chronic obstructive pulmonary disease) Smoker Obesity Thrombocytopenia Polysubstance abuse Cirrhosis of liver Anxiety and depression Hepatitis C, chronic Home Medications ?Medication ?Instructions ?Recorded ?Last Taken ?Type gabapentin 100 mg capsule 100 mg PO Q12H nerve pain 07/20/23 05/16/24 History ascorbate calcium (vitamin C) 500 500 mg PO DAILY vitamin 12/04/23 05/16/24 History mg tablet ferrous sulfate 325 mg (65 mg 325 mg PO DAILY supplement 12/04/23 05/16/24 History iron) tablet (FeroSul) buspirone 10 mg tablet 10 mg PO 4X/DAY ANXIETY 04/11/24 05/16/24 History desvenlafaxine succinate 50 mg 50 mg PO DAILY 04/11/24 05/16/24 History tablet,extended release 24 hr melatonin 5 mg tablet 5 mg PO QHS 04/11/24 05/16/24 History topiramate 50 mg tablet 50 mg PO DAILY 04/11/24 05/16/24 History furosemide 40 mg tablet (Lasix) 40 mg PO DAILY DIURETIC #30 tabs 04/13/24 05/16/24 Rx spironolactone 50 mg tablet 50 mg PO BID #60 tabs 04/13/24 05/16/24 Rx pantoprazole 40 mg tablet,delayed 40 mg PO DAILY #30 tabs 05/11/24 05/16/24 Rx release (Protonix) bacitracin zinc 500 unit/gram 1 applic topical BID 14 days #1 05/15/24 05/16/24 Rx topical ointment tube lactulose 10 gram/15 mL oral 10 g (15 mL) PO TID 1 month #3,785 05/31/24 Unknown Rx solution mL Lactobacillus 1 cap PO DAILY 2 weeks #14 caps 06/01/24 Unknown Rx acidophilus-Bifidobac.animalis 2 billion cell capsule Allergy/AdvReac Type Severity Reaction Status Date / Time bupropion HCl (From Allergy SEIZURES Verified 06/06/24 04:41 Wellbutrin) codeine Allergy Rash Verified 06/06/24 04:41 Family History Mother Diabetes Father Cancer HX Throat CA. Surgical History History of abdominal paracentesis H/O tubal ligation History of liver biopsy Social History adopted: No household members: family housing: other number of children: 3 current occupational status: unemployed pets and animals: Yes history of recent travel: No sexually active: Yes Smoking Status: Current every day smoker tobacco type: cigarettes second hand exposure: Yes alcohol intake: current alcohol intake frequency: a few times a month substance use type: former substance user Date of last use: heroin, marijuana, heroin and methamphetamine seatbelt use: always do you feel safe at home: Yes ROS ROS ED Constitutional Constitutional ED: Reports chills; Denies fever(s) Eyes Eyes: Denies blurry vision or change in vision ENT ENT ED: Denies rhinorrhea or sore throat Cardiovascular Cardiovascular: Denies chest pain or palpitations Respiratory/Chest Respiratory/Chest: Denies cough or dyspnea Gastrointestinal Gastrointestinal: Reports abdominal pain and nausea; Denies vomiting Genitourinary Genitourinary ED: Reports hematuria; Denies dysuria Musculoskeletal Musculoskeletal: Reports back pain; Denies neck pain Integumentary Denies abscess or rash Neurologic Neurologic: Reports headache(s); Denies weakness Allergic/Immunologic Allergic/Immunologic ED: Denies mouth swelling or urticaria EXAM Physical Exam Const Vital Signs: 06/06/24 04:37 06/06/24 04:40 06/06/24 06:36 Temperature 97.8 F 97.8 F Temperature Source Oral Oral Pulse Rate 54 L 54 L 50 L Respiratory Rate 18 18 18 Blood Pressure 137/74 H 137/74 H 116/69 Blood Pressure Mean 95 95 84 Pulse Ox 100 100 100 Oxygen Delivery Method Room Air Room Air Room Air Positive well nourished and well developed General Appearance ED: well developed and NAD HEENT Reports moist mucous membranes Neck supple and no JVD Resp normal respiratory effort and clear to auscultation bilaterally Cardio regular rhythm Rate: bradycardia GI GI Narrative: Abdomen is soft. There is ascites noted. There is diffuse tenderness. There is no rebound or guarding noted. Inspection: abdominal distention Palpation: soft, tender epigastric, LLQ, RLQ, LUQ, RUQ, periumbilical and suprapubic and hepatomegaly Neuro oriented x3, CN's II-XII intact bilaterally, moves all extremities and no sensory deficits noted Sensorium / Orientation: alert Motor Exam: strength 5/5 throughout Psych mental status grossly normal MDM MDM MDM Narrative Medical decision making narrative: Differential diagnosis includes ureteral calculus, displaced stent, pyelonephritis, urinary tract infection, diverticulitis, colitis, gastroenteritis, ascites, pancreatitis, and spontaneous bacterial peritonitis. CBC will be obtained to assess for leukocytosis and anemia. Comprehensive metabolic profile will be obtained to assess for hepatic function, renal function, and electrolyte abnormality. Urinalysis will be obtained to assess for urinary tract infection and hematuria. Lipase will be obtained to assess for pancreatitis. PT with INR and PTT will be obtained to assess for coagulopathy. Serum lactate will be obtained to assess for sepsis. CT scan of the abdomen pelvis will be obtained to assess for stent migration, ureteral calculus, bowel obstruction, perforation, and ascites. Blood culture will be obtained to assess for sepsis. Urine culture will be obtained to assess for urinary tract infection. History & Record Review Additional record(s) reviewed:: Prior outpatient record, Prior ED visit and Prior labs Lab Data Attestation: I reviewed the patient's lab results. Lab results narrative: CBC was reviewed. White blood cell count was normal. There is a mild anemia with a hemoglobin of 11.6 and hematocrit 35.5. Platelets were low at 61. This is consistent with previous results. Comprehensive metabolic profile was reviewed. Total bilirubin was mildly elevated at 2.7. AST was 150, ALT was 106, and alkaline phosphatase was 158. Potassium was low at 3.0. Lipase was reviewed and was normal at 44. Urinalysis was reviewed. There is red cloudy urine. Urine occult blood was 250 with 50-100 red blood cells. Leukocyte esterase was 100 with 10-25 white blood cells. There is 2+ bacteria. Labs: Laboratory Results - last 24 hr 06/06/24 06/06/24 06:34 06:45 WBC 5.7 RBC 3.80 L Hgb 11.6 L Hct 35.5 L MCV 93.4 MCH 30.5 MCHC 32.7 RDW Std Deviation 56.4 H RDW Coeff of Katalina 16.3 H Plt Count 61 L MPV 10.9 Immature Gran % (Auto) 0.500 Neut % (Auto) 65.4 Lymph % (Auto) 19.8 [place] % (Auto) 8.8 Eos % (Auto) 4.6 Baso % (Auto) 0.9 Absolute Neuts (auto) 3.7 Absolute Lymphs (auto) 1.12 Nucleated RBC % 0 Sodium 139 Potassium 3.0 L Chloride 109 H Carbon Dioxide 25.0 Anion Gap 5 BUN 9 Creatinine 0.83 Estim Creat Clear Calc 78.78 Est GFR (MDRD) Af Amer 94 Est GFR (MDRD) Non-Af 78 BUN/Creatinine Ratio 10.9 Glucose 79 Calcium 8.9 Total Bilirubin 2.70 H AST 150 H ALT 106 H Alkaline Phosphatase 158 H Total Protein 7.2 Albumin 2.6 L Globulin 4.6 H Albumin/Globulin Ratio 0.6 L Lipase 44 Urine Color Red Urine Clarity Sl. Cloudy Urine pH 6.5 Ur Specific [place] 1.015 Urine Protein 500 H Urine Glucose (UA) Normal Urine Ketones Negative Urine Occult Blood 250 H Urine Nitrite Negative Urine Bilirubin Negative Urine Urobilinogen 4 H Ur Leukocyte Esterase 100 H Urine RBC 50-100 SEEN Urine WBC 10-25 SEEN Ur Squamous Epith Cells 0-5 SEEN Urine Bacteria 2+ Urine Mucus 0 SEEN Treatment and Re-Evaluation :: Patient was given morphine and Zofran. Care of the patient was turned over to the oncoming physician pending CT results and final lab results. Discharge Plan Triage Chief Complaint: Abd Pain ED Provider: Michi Cope Dx/Rx/DC Orders Clinical Impression: Cirrhosis of liver, Abdominal ascites, Hematuria Prescriptions: No Action gabapentin 100 mg capsule 100 mg PO Q12H bacitracin zinc 500 unit/gram Ointment 1 applic topical BID 14 Days Qty: 1 0RF Protocol: *Topical Application Instructions APPLICATION INSTRUCTIONS: affected area Rx Instructions: Apply to chin wound and BL foot wounds. Avoid picking skin. ferrous sulfate [FeroSul] 325 mg (65 mg iron) tablet 325 mg PO DAILY ascorbate calcium (vitamin C) 500 mg tablet 500 mg PO DAILY buspirone 10 mg tablet 10 mg PO 4X/DAY topiramate 50 mg tablet 50 mg PO DAILY desvenlafaxine succinate 50 mg tablet extended release 24 hr 50 mg PO DAILY melatonin 5 mg tablet 5 mg PO QHS spironolactone 50 mg Tablet 50 mg PO BID Qty: 60 1RF furosemide [Lasix] 40 mg tablet 40 mg PO DAILY Qty: 30 0RF Rx Instructions: start on 04/14/24 pantoprazole [Protonix] 40 mg tablet,delayed release (DR/EC) 40 mg PO DAILY Qty: 30 0RF lactulose 10 gram/15 mL solution 10 g PO TID 30 Days Qty: 3785 4RF L. acidophilus/Bifid. animalis 2 billion cell capsule 1 cap PO DAILY 14 Days Qty: 14 0RF Primary Care Provider: Ang Acosta Referrals: Ang Acosta MD [Primary Care Provider] - Print Language: Nepalese
--- NOTE | 2024-06-06 06:22 | CT_ITS ---
STUDY: CT ABDOMEN AND PELVIS WITHOUT CONTRAST REASON FOR EXAM: Female, 48 years old. Hematuria. Recent ureteral stent placement. Cirrhosis. RADIATION DOSAGE (If Supplied By Facility): CTDIvol = ( 13.31 ) mGy, DLP = ( 714.74 ) mGycm TECHNIQUE: Transaxial images were obtained from the dome of the diaphragm to the symphysis pubis without oral contrast, and without intravenous contrast. Sagittal and coronal images were reconstructed. Individualized dose optimization techniques were used for this CT. COMPARISON: Comparison is made with prior study May 17, 2024. FINDINGS: The visualized lung bases are unremarkable. The visualized portions of the heart are within normal limits. Ascites. There is a diffuse contour abnormality of the liver consistent with cirrhotic changes. Gallbladder wall thickening most likely secondary to the ascites. There is moderate splenomegaly. Normal pancreas. Normal bilateral adrenal glands. Persistent right hydronephrosis. A right-sided double-J ureteral catheter is seen. There is a 5.4 mm calculus in the lower pole calyx of the right kidney. Normal left kidney. Normal visualized stomach. Normal small intestine. Normal colon. The appendix is visualized and appears normal. Normal abdominal aorta. Normal inferior vena cava. Normal retroperitoneum. Normal urinary bladder. Bilateral tubal ligation clips are seen. Diffuse increased markings in the subcutaneous fat suggestive of subcutaneous edema. Disc space narrowing and disc degeneration at the L5-S1 level. CT/Abdomen/Pelvis without Cont IMPRESSION: Essentially stable examination with evidence of cirrhosis of the liver with splenomegaly and ascites. Stable right hydronephrosis and right ureteral stent with stable calculus in the lower pole calyx of the right kidney. Electronically Signed: Isidro Burnett MD at 8:54 EDT ,
[2024-06-06 06:36] VITALS: BP 116/69; PULSE 50; RESP 18; O2SAT 100
[2024-06-06 06:39] LABS: Mucous, Urine 0 SEEN /hpf (<or=2+)
[2024-06-06 06:41] LABS: Color, Urine Red (Yellow); Glucose, Dipstick Normal (Normal); Ketone-Dipstick Negative (Negative); Leukocyte Esterase-Dipstick 100 /ul (Negative); Nitrite-Dipstick Negative (Negative); Occult Blood-Urine 250 /ul (Negative); Protein-Dipstick 500 mg/dl (Negative); Specific Gravity, Urine 1.015 (1.002-1.030); Urine Bilirubin Dipstick Negative (Negative); Urine Clarity Sl. Cloudy (Clear); Urine Urobilinogen 4 mg/dl (Normal); Urine pH 6.5 (5.0 - 8.0)
[2024-06-06 06:53] LABS: Bacteria 2+ /hpf (None Seen); Red Blood Cells-Urine 50-100 SEEN /hpf (0-5); Squamous Epithelial Cells - UA 0-5 SEEN /hpf (5-10); White Blood Cells 10-25 SEEN /hpf (0-5)
[2024-06-06] MEDS: Morphine 4 MG/ML Syringe IM (06:55)
[2024-06-06] MEDS: Ondansetron ODT 4 MG Tablet PO (06:55)
[2024-06-06 07:14] LABS: ALB/GLOB Ratio 0.6 RATIO (0.9-2.4); AST(SGOT) 150 U/L (15-37); Absolute Lymphocyte Count 1.12 X10^3/uL (0.83-4.51); Absolute Neutrophil Count 3.7 X10^3/uL (2.0-7.7); Alanine Aminotransfer ALT/SGPT 106 U/L (13-56); Albumin, Serum 2.6 g/dL (3.2-5.0); Alkaline Phosphatase 158 U/L (45-117); Anion Gap 5 (5-15); BUN 9 mg/dL (7-18); BUN/Creat Ratio 10.9 RATIO (10-20); Basophil# 0.05 X10^3/uL; Basophil% 0.9 % (0-1); Calcium,Total 8.9 mg/dL (8.5-10.1); Chloride 109 mmol/L (98-107); Creatinine, Serum 0.83 mg/dL (0.55-1.02); EST Glomerular Filtration Rate 78 mL/min (>60); Eosinophil# 0.26 X10^3/uL; Eosinophils% 4.6 % (0-5); Est Glom Filt Rate - Afr Amer 94 mL/min (>60); Estimated Creatinine Clearance 78.78 ml/min; Globulin 4.6 g/dL (2.2-4.2); Glucose 79 mg/dL (74-106); Hematocrit 35.5 % (37-47); Hemoglobin 11.6 g/dL (12.0-15.0); Lipase 44 U/L (13-75); Lymphocyte # 1.12 X10^3/ul (0.83-4.51); Lymphocyte % 19.8 % (19-41); Mean Corp Hgb Conc 32.7 g/dL (32-36); Mean Corpuscular Hgb 30.5 pg (27.0-32.0); Mean Corpuscular Volume 93.4 fL (81-99); Mean Platelet Vol. 10.9 fl (6.2-12.0); Monocyte% 8.8 % (0-10); NRBC Flagged by Analyzer 0 % (0-5); Neutrophil # 3.71 X10^3/uL (2.7-7.7); Neutrophil % 65.4 % (47-70); POSITIVE COUNT YES; Platelet Count 61 K/mm3 (150-450); Protein, Total 7.2 g/dL (6.4-8.2); RBC Distribution Width CV 16.3 % (11.6-14.6); RBC Distribution Width SD 56.4 fl (35.1-43.9); Sodium Level 139 mmol/L (136-145); White Blood Count 5.7 K/mm3 (4.4-11.0)
[2024-06-06 07:29] LABS: Lactic Acid 1.5 mmol/L (0.4-1.9)
[2024-06-06 08:00] VITALS: BP 134/78; PULSE 64; RESP 18; TEMP 36.4; O2SAT 98
[2024-06-06] MEDS: Potassium Chloride Oral Tablet 20 MEQ 40 MEQ PO (08:10)
--- NOTE | 2024-06-06 08:53 | ED.RN ---
WHILE MEDICATING PT WITH POTASSIUM, PT WAS VERY UPSET. STATES WE ARE NOT DOING ANYTHING. TOLD PT THAT WE DID BLOOD WORK AND CT, SHE STATES THAT DOES NOTHING. I JUST WANT PAIN PILLS, AND TO GO HOME AND BE MISERABLE. INFORMED
[2024-06-06 10:00] VITALS: BP 138/76; PULSE 97; RESP 16; O2SAT 98
[2024-06-06] MEDS: Smz/Tmp Ds Tablet 1 TABLET PO (10:51)
== END 2024-06-06 10:59 | disposition home or self-care (01) ==
PROVIDERS: Emergency Provider Emergency Medicine; PCP Family Medicine; Visit Provider Emergency Medicine
DX: K74.60 Unspecified cirrhosis of liver (principal); J44.9 Chronic obstructive pulmonary disease, unspecified; G40.909 Epilepsy, unspecified, not intractable, without status epilepticus; B18.2 Chronic viral hepatitis C; F41.9 Anxiety disorder, unspecified; F32.A Depression, unspecified; F17.210 Nicotine dependence, cigarettes, uncomplicated; N20.0 Calculus of kidney; D50.9 Iron deficiency anemia, unspecified; D69.6 Thrombocytopenia, unspecified; R18.8 Other ascites; R31.9 Hematuria, unspecified; R82.998 Other abnormal findings in urine; S91.302A Unspecified open wound, left foot, initial encounter; S01.80XA Unspecified open wound of other part of head, initial encounter; S91.301A Unspecified open wound, right foot, initial encounter; X58.XXXA Exposure to other specified factors, initial encounter; K21.9 Gastro-esophageal reflux disease without esophagitis; G47.30 Sleep apnea, unspecified; G89.29 Other chronic pain; Z96.0 Presence of urogenital implants; Z88.5 Allergy status to narcotic agent; Z88.8 Allergy status to other drugs, medicaments and biological substances; Z86.14 Personal history of Methicillin resistant Staphylococcus aureus infection; Z86.19 Personal history of other infectious and parasitic diseases; Z87.19 Personal history of other diseases of the digestive system; Z87.448 Personal history of other diseases of urinary system; Z87.442 Personal history of urinary calculi; Z79.899 Other long term (current) drug therapy; Z87.898 Personal history of other specified conditions
CPT/HCPCS: 74176; 80053; 81001; 83605; 83690; 85025; 87077; 87086; 87088; 87186; 96374; 99283; A4216

== ENCOUNTER 2024-06-07 11:54 | Emergency (ER) | payer MEDICAID, SELFPAY ==
[2024-06-07 11:55] VITALS: BP 122/74; PULSE 72; RESP 16; TEMP 36.6; O2SAT 99; BMI 27.6
--- NOTE | 2024-06-07 12:09 | EDS_ITS ---
HPI History of Present Illness Chief Complaint: Other, Pain/Inj Detail of Chief Complaint: Discomfort with urination and history of ureteral stent Informant: patient Onset/Context/Timing Onset: - (Uncertain. Patient is not a good informant.) Context: - (Uncertain) Timing: - (Presently its continuous) Quality: Pain she burning-like sensation Location: Urethra Current Severity: Mild Maximum Severity: Moderate Worsened by: Urination Relieved by: Nothing Associated Symptoms Associated Symptoms: None Narrative Narrative: Patient presents because of a burning pinching sensation in the vaginal/urethral area. Patient had a CT of the abdomen yesterday which revealed persistent ascites. There is no acute pathology noted. She was also seen on the fourth of this month for sudden severe continuous generalized abdominal pain. Patient at that time had diagnostic paracentesis and there was concern for spontaneous bacterial peritonitis. Patient was IV antibiotics. Today patient presents because of concern that her ureteral stent is causing her discomfort. She also complaining of urinary symptoms. Patient had essentially a stable exam compared to study performed May 17, 2024. There is evidence of cirrhosis of the liver with splenomegaly and ascites. There is stable right hydronephrosis and right ureteral stent with stable calculus in the lower pole. Patient denies fever, chills night sweats. When I entered the room she was only wearing a bra. And she was sipping on hot chocolate. When I began to ask questions she became tearful. Prior similar symptoms: Yes Recent Illness/Hospitalization: [facility] Medical History Redness of skin Blackout Urolithiasis Hydronephrosis with renal calculous obstruction Hydroureteronephrosis Bipolar disorder Anxiety Depression Ascites of liver Complete edentulism, class III Alcohol abuse Chronic pain GERD (gastroesophageal reflux disease) Restless legs Iron deficiency anemia Hyperbilirubinemia Substance abuse Marijuana use MRSA infection Low iron Anemia Hepatitis Migraine headache Seizures History of diverticulitis COPD (chronic obstructive pulmonary disease) Smoker Obesity Thrombocytopenia Polysubstance abuse Cirrhosis of liver Anxiety and depression Hepatitis C, chronic Home Medications ?Medication ?Instructions ?Recorded ?Last Taken ?Type gabapentin 100 mg capsule 100 mg PO Q12H nerve pain 07/20/23 05/16/24 History ascorbate calcium (vitamin C) 500 500 mg PO DAILY vitamin 12/04/23 05/16/24 History mg tablet ferrous sulfate 325 mg (65 mg 325 mg PO DAILY supplement 12/04/23 05/16/24 History iron) tablet (FeroSul) buspirone 10 mg tablet 10 mg PO 4X/DAY ANXIETY 04/11/24 05/16/24 History desvenlafaxine succinate 50 mg 50 mg PO DAILY 04/11/24 05/16/24 History tablet,extended release 24 hr melatonin 5 mg tablet 5 mg PO QHS PRN sleep 04/11/24 05/16/24 History topiramate 50 mg tablet 100 mg PO DAILY 04/11/24 05/16/24 History furosemide 40 mg tablet (Lasix) 40 mg PO DAILY DIURETIC #30 tabs 04/13/24 05/16/24 Rx spironolactone 50 mg tablet 50 mg PO BID #60 tabs 04/13/24 05/16/24 Rx bacitracin zinc 500 unit/gram 1 applic topical BID 14 days #1 05/15/24 05/16/24 Rx topical ointment tube Lactobacillus 1 cap PO DAILY 2 weeks #14 caps 06/01/24 Unknown Rx acidophilus-Bifidobac.animalis 2 billion cell capsule albuterol sulfate 90 mcg/actuation 1 inh inhalation Q6H PRN shortness 06/06/24 Unknown History aerosol inhaler of breath or wheezing fluticasone propionate 50 1 spray intranasal PRN PRN nasal 06/06/24 Unknown History mcg/actuation nasal congestion spray,suspension lactulose 10 gram/15 mL oral 10 g PO TID PRN stomach upset 06/06/24 Unknown History solution pantoprazole 40 mg tablet,delayed 40 mg PO BID 06/06/24 Unknown History release (Protonix) phenazopyridine 200 mg tablet 200 mg PO TID 6 doses #6 tabs 06/07/24 Unknown Rx (Pyridium) Allergy/AdvReac Type Severity Reaction Status Date / Time bupropion HCl (From Allergy SEIZURES Verified 06/06/24 14:14 Wellbutrin) codeine Allergy Rash Verified 06/06/24 14:14 Family History Mother Diabetes Father Cancer HX Throat CA. Surgical History History of abdominal paracentesis H/O tubal ligation History of liver biopsy Social History adopted: No household members: family housing: other number of children: 3 current occupational status: unemployed pets and animals: Yes history of recent travel: No sexually active: Yes Smoking Status: Current every day smoker tobacco type: cigarettes second hand exposure: Yes alcohol intake: current alcohol intake frequency: a few times a month substance use type: former substance user Date of last use: heroin, marijuana, heroin and methamphetamine seatbelt use: always do you feel safe at home: Yes ROS ROS ED Constitutional Constitutional ED: Denies chills, fever(s), subjective, sweats or weight loss Eyes Eyes: Denies change in vision Cardiovascular Cardiovascular: Denies chest pain or palpitations Respiratory/Chest Respiratory/Chest: Denies cough, dyspnea or dyspnea on exertion Gastrointestinal Gastrointestinal: Denies abdominal pain, diarrhea, nausea or vomiting Genitourinary Genitourinary ED: Reports dysuria; Denies hematuria or urinary frequency Musculoskeletal Musculoskeletal: Denies arthralgias, back pain, myalgias or neck pain Integumentary Denies rash Hematologic/Lymphatic Hematologic/Lymphatic: Reports systems reviewed and no addt'l complaints, except as documented EXAM Physical Exam Const Vital Signs: 06/07/24 11:55 06/07/24 12:36 Temperature 97.9 F Temperature Source Temporal Pulse Rate 72 Respiratory Rate 16 Respiratory Effort Normal Non-Labored Respiratory Pattern Normal Blood Pressure 122/74 H Blood Pressure Mean 90 Pulse Ox 99 Oxygen Delivery Method Room Air Positive well nourished and well developed Constitutional Narrative: In my opinion patient is in no obvious discomfort. General Appearance ED: well developed; Negative for cyanotic, diaphoretic or pallor HEENT Reports moist mucous membranes HEENT Narrative: Head is atraumatic normocephalic. Ears normal. Nares patent. Eyes PERRL and EOMs intact bilaterally General Eye ED: Negative for scleral icterus Neck no lymphadenopathy, supple and no JVD Chest Wall inspection of chest normal and palpation of chest normal Resp normal respiratory effort and clear to auscultation bilaterally Cardio regular rate, regular rhythm, S1 normal heart sound and S2 normal heart sound GI GI Narrative: Patient has a fluid wave and shifting dullness to percussion. Bowel sounds are diminished. There is no guarding or peritoneal findings. Back/Spine no CVA tenderness Extremity normal to inspection General Extremety ED: Negative for edema or tenderness General Extremity: Negative for edema Neuro oriented x3 and CN's II-XII intact bilaterally Sensorium / Orientation: alert Psych Mood & Affect: tearful Skin no rashes or lesions noted, no wounds and skin turgor normal General Skin Exam: Negative for jaundice or pallor MDM MDM MDM Narrative Medical decision making narrative: Patient has had significant workup multiple times in the past month. Since she has only urinary symptoms and no other subjective and no objective findings will obtain a UA and CBC at this time. History & Record Review Additional record(s) reviewed:: Prior inpatient record, Prior outpatient record, Prior ED visit and Prior labs Lab Data Attestation: I reviewed the patient's lab results. Lab results narrative: CBC reveals mild anemia, which is chronic. Electrolyte panel is unremarkable. Chloride is slightly elevated 112. Urinalysis is remarkable for hematuria. This is most likely due to the stent. She also has ketones on the macro portion. Labs: Laboratory Results - last 24 hr 06/07/24 06/07/24 12:15 12:57 WBC 8.1 RBC 3.80 L Hgb 11.7 L Hct 34.1 L MCV 89.7 MCH 30.8 MCHC 34.3 RDW Std Deviation 53.1 H RDW Coeff of Katalina 16.2 H Plt Count 77 L MPV 10.8 Immature Gran % (Auto) 0.200 Neut % (Auto) 71.9 H Lymph % (Auto) 15.4 L [place] % (Auto) 8.1 Eos % (Auto) 3.8 Baso % (Auto) 0.6 Absolute Neuts (auto) 5.8 Absolute Lymphs (auto) 1.25 Nucleated RBC % 0 Sodium 139 Potassium 3.8 Chloride 112 H Carbon Dioxide 22.0 Anion Gap 5 BUN 7 Creatinine 0.86 Estim Creat Clear Calc 69.06 Est GFR (MDRD) Af Amer 90 Est GFR (MDRD) Non-Af 75 BUN/Creatinine Ratio 8.2 L Glucose 105 Calcium 9.2 Urine Color Red Urine Clarity Turbid Urine pH 6.5 Ur Specific [place] 1.020 Urine Protein 500 H Urine Glucose (UA) Normal Urine Ketones 5 H Urine Occult Blood 250 H Urine Nitrite Negative Urine Bilirubin Negative Urine Urobilinogen Normal Ur Leukocyte Esterase Negative Urine RBC > 100 SEEN Urine WBC 0-5 SEEN Ur Squamous Epith Cells 0-5 SEEN Urine Bacteria 0 SEEN Urine Mucus 0 SEEN Management Discussion w/another healthcare provider: 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 Patient was told that we would be developing a care plan for her is because she has been frequently in the emergency department recently.) Discharge Plan Triage Chief Complaint: Other, Pain/Inj ED Provider: Shon Quintero Dx/Rx/DC Orders Clinical Impression: Hematuria, Ketosis, Ascites due to alcoholic cirrhosis, Dysuria, Ureterolithiasis Instructions: Dysuria Prescriptions: New phenazopyridine [Pyridium] 200 mg tablet 200 mg PO TID Qty: 6 0RF No Action gabapentin 100 mg capsule 100 mg PO Q12H bacitracin zinc 500 unit/gram Ointment 1 applic topical BID 14 Days Qty: 1 0RF Protocol: *Topical Application Instructions APPLICATION INSTRUCTIONS: affected area Rx Instructions: Apply to chin wound and BL foot wounds. Avoid picking skin. ferrous sulfate [FeroSul] 325 mg (65 mg iron) tablet 325 mg PO DAILY ascorbate calcium (vitamin C) 500 mg tablet 500 mg PO DAILY buspirone 10 mg tablet 10 mg PO 4X/DAY topiramate 50 mg tablet 100 mg PO DAILY desvenlafaxine succinate 50 mg tablet extended release 24 hr 50 mg PO DAILY melatonin 5 mg tablet 5 mg PO QHS PRN (Reason: sleep) spironolactone 50 mg Tablet 50 mg PO BID Qty: 60 1RF furosemide [Lasix] 40 mg tablet 40 mg PO DAILY Qty: 30 0RF Rx Instructions: start on 04/14/24 L. acidophilus/Bifid. animalis 2 billion cell capsule 1 cap PO DAILY 14 Days Qty: 14 0RF albuterol sulfate 90 mcg/actuation HFA aerosol inhaler 1 inh inhalation Q6H PRN (Reason: shortness of breath or wheezing) fluticasone propionate 50 mcg/actuation spray,suspension 1 spray INTRANASAL PRN PRN (Reason: nasal congestion) pantoprazole [Protonix] 40 mg tablet,delayed release (DR/EC) 40 mg PO BID lactulose 10 gram/15 mL solution 10 g PO TID PRN (Reason: stomach upset) Primary Care Provider: Ang Acosta Referrals: Ang Acosta MD [Primary Care Provider] - Print Language: Greenlandic Disposition Disposition: Home, Self Care
[2024-06-07 12:27] LABS: Absolute Lymphocyte Count 1.25 X10^3/uL (0.83-4.51); Absolute Neutrophil Count 5.8 X10^3/uL (2.0-7.7); Basophil# 0.05 X10^3/uL; Basophil% 0.6 % (0-1); Eosinophil# 0.31 X10^3/uL; Eosinophils% 3.8 % (0-5); Hematocrit 34.1 % (37-47); Hemoglobin 11.7 g/dL (12.0-15.0); Lymphocyte # 1.25 X10^3/ul (0.83-4.51); Lymphocyte % 15.4 % (19-41); Mean Corp Hgb Conc 34.3 g/dL (32-36); Mean Corpuscular Hgb 30.8 pg (27.0-32.0); Mean Corpuscular Volume 89.7 fL (81-99); Mean Platelet Vol. 10.8 fl (6.2-12.0); Monocyte# 0.66 X10^3/uL; Monocyte% 8.1 % (0-10); NRBC Flagged by Analyzer 0 % (0-5); Neutrophil # 5.83 X10^3/uL (2.7-7.7); Neutrophil % 71.9 % (47-70); POSITIVE COUNT YES; Platelet Count 77 K/mm3 (150-450); RBC Distribution Width CV 16.2 % (11.6-14.6); RBC Distribution Width SD 53.1 fl (35.1-43.9); White Blood Count 8.1 K/mm3 (4.4-11.0)
[2024-06-07 12:36] LABS: Anion Gap 5 (5-15); BUN 7 mg/dL (7-18); BUN/Creat Ratio 8.2 RATIO (10-20); Calcium,Total 9.2 mg/dL (8.5-10.1); Chloride 112 mmol/L (98-107); Creatinine, Serum 0.86 mg/dL (0.55-1.02); EST Glomerular Filtration Rate 75 mL/min (>60); Est Glom Filt Rate - Afr Amer 90 mL/min (>60); Estimated Creatinine Clearance 69.06 ml/min; Glucose 105 mg/dL (74-106); Potassium 3.8 mmol/L (3.5-5.1); Sodium Level 139 mmol/L (136-145)
[2024-06-07 13:00] LABS: Bacteria 0 SEEN /hpf (None Seen); Mucous, Urine 0 SEEN /hpf (<or=2+)
[2024-06-07 13:06] LABS: Color, Urine Red (Yellow); Glucose, Dipstick Normal (Normal); Ketone-Dipstick 5 mg/dl (Negative); Leukocyte Esterase-Dipstick Negative /ul (Negative); Nitrite-Dipstick Negative (Negative); Occult Blood-Urine 250 /ul (Negative); Protein-Dipstick 500 mg/dl (Negative); Urine Bilirubin Dipstick Negative (Negative); Urine Clarity Turbid (Clear); Urine Urobilinogen Normal (Normal); Urine pH 6.5 (5.0 - 8.0)
[2024-06-07 13:15] LABS: Squamous Epithelial Cells - UA 0-5 SEEN /hpf (5-10); White Blood Cells 0-5 SEEN /hpf (0-5)
[2024-06-07 13:16] LABS: Red Blood Cells-Urine > 100 SEEN /hpf (0-5)
[2024-06-07 13:46] VITALS: BP 119/77; PULSE 66; RESP 16; TEMP 36.6; O2SAT 98
== END 2024-06-07 13:47 | disposition home or self-care (01) ==
PROVIDERS: Emergency Provider Emergency Medicine; PCP Family Medicine; Visit Provider Emergency Medicine
DX: R30.0 Dysuria (principal); E88.89 Other specified metabolic disorders; K70.31 Alcoholic cirrhosis of liver with ascites; J44.9 Chronic obstructive pulmonary disease, unspecified; N13.2 Hydronephrosis with renal and ureteral calculous obstruction; F17.210 Nicotine dependence, cigarettes, uncomplicated; R31.9 Hematuria, unspecified; K21.9 Gastro-esophageal reflux disease without esophagitis; Z79.899 Other long term (current) drug therapy
CPT/HCPCS: 80048; 81001; 85025; 99283

== ENCOUNTER 2024-06-08 12:54 | Emergency (ER) | payer MEDICAID, SELFPAY ==
[2024-06-08 12:55] VITALS: BP 100/67; PULSE 64; RESP 16; TEMP 36.6; O2SAT 100; BMI 31.4
--- NOTE | 2024-06-08 14:23 | ED.RN ---
SHELL Dennison notified of patient in ED
--- NOTE | 2024-06-08 16:43 | EX.ED.DYSGE1 ---
HPI History of Present Illness Chief Complaint: Edema Detail of Chief Complaint: Edema lower extremities Informant: patient Onset/Context/Timing Onset: Days and Weeks Context: Gradual Onset Timing: Continuous Quality: Lymphedema due to alcoholic liver disease with ascites Location: Hepatic Current Severity: Moderate Maximum Severity: Moderate Worsened by: Alcoholic liver disease Relieved by: Nothing Associated Symptoms Associated Symptoms: Increasing tightness of her legs Narrative Narrative: Patient is a 48-year-old woman. Patient was seen by me on June 07. She was seen by Dr. Ballard on June 06 and again by me on May 30. She was seen for abdominal ascites. Patient called her primary care physician at the [facility] recommend she come to the ER. Jesi Benitez from case management was aware the patient made aware the patient. She has an appointment to seen by Dr. Burns on June 11 at 11:20 AM. She has a appointment with Dr. Arshad WednesdaysJune 13 regarding urologic issues. She is scheduled to see the consult the counseling center on June [address] Noel for GI on June 22. Presently there is no interventional radiologist. Patient had a ultrasound the abdomen by Dr. Daniel. There was no significant mount of fluid. She does have significant fluid at this time. Arrangements are being made for outpatient paracentesis. Patient's had no increasing orthopnea. She denies PND. Denies chest pain. She complains of increased abdominal girth and swelling of her legs. Her legs are more swollen. Her abdomen is slightly more distended. Prior similar symptoms: Yes Recent Illness/Hospitalization: Yes [facility] Medical History Redness of skin Blackout Abdominal ascites Urolithiasis Hydronephrosis with renal calculous obstruction Hydroureteronephrosis Bipolar disorder Anxiety Depression Ascites of liver Complete edentulism, class III Alcohol abuse Chronic pain GERD (gastroesophageal reflux disease) Restless legs Iron deficiency anemia Hyperbilirubinemia Substance abuse Marijuana use MRSA infection Low iron Anemia Hepatitis Migraine headache Seizures History of diverticulitis COPD (chronic obstructive pulmonary disease) Smoker Obesity Thrombocytopenia Polysubstance abuse Cirrhosis of liver Anxiety and depression Hepatitis C, chronic Home Medications ?Medication ?Instructions ?Recorded ?Last Taken ?Type gabapentin 100 mg capsule 100 mg PO Q12H nerve pain 07/20/23 05/16/24 History ascorbate calcium (vitamin C) 500 500 mg PO DAILY vitamin 12/04/23 05/16/24 History mg tablet ferrous sulfate 325 mg (65 mg 325 mg PO DAILY supplement 12/04/23 05/16/24 History iron) tablet (FeroSul) buspirone 10 mg tablet 10 mg PO 4X/DAY ANXIETY 04/11/24 05/16/24 History desvenlafaxine succinate 50 mg 50 mg PO DAILY 04/11/24 05/16/24 History tablet,extended release 24 hr melatonin 5 mg tablet 5 mg PO QHS PRN sleep 04/11/24 05/16/24 History topiramate 50 mg tablet 100 mg PO DAILY 04/11/24 05/16/24 History furosemide 40 mg tablet (Lasix) 40 mg PO DAILY DIURETIC #30 tabs 04/13/24 05/16/24 Rx spironolactone 50 mg tablet 50 mg PO BID #60 tabs 04/13/24 05/16/24 Rx bacitracin zinc 500 unit/gram 1 applic topical BID 14 days #1 05/15/24 05/16/24 Rx topical ointment tube Lactobacillus 1 cap PO DAILY 2 weeks #14 caps 06/01/24 Unknown Rx acidophilus-Bifidobac.animalis 2 billion cell capsule albuterol sulfate 90 mcg/actuation 1 inh inhalation Q6H PRN shortness 06/06/24 Unknown History aerosol inhaler of breath or wheezing fluticasone propionate 50 1 spray intranasal PRN PRN nasal 06/06/24 Unknown History mcg/actuation nasal congestion spray,suspension lactulose 10 gram/15 mL oral 10 g PO TID PRN stomach upset 06/06/24 Unknown History solution pantoprazole 40 mg tablet,delayed 40 mg PO BID 06/06/24 Unknown History release (Protonix) phenazopyridine 200 mg tablet 200 mg PO TID 6 doses #6 tabs 06/07/24 Unknown Rx (Pyridium) Allergy/AdvReac Type Severity Reaction Status Date / Time bupropion HCl (From Allergy SEIZURES Verified 06/08/24 12:55 Wellbutrin) codeine Allergy Rash Verified 06/08/24 12:55 Family History Mother Diabetes Father Cancer HX Throat CA. Surgical History History of abdominal paracentesis H/O tubal ligation History of liver biopsy Social History adopted: No household members: family housing: other number of children: 3 current occupational status: unemployed pets and animals: Yes history of recent travel: No sexually active: Yes Smoking Status: Current every day smoker tobacco type: cigarettes second hand exposure: Yes alcohol intake: current alcohol intake frequency: a few times a month substance use type: former substance user Date of last use: heroin, marijuana, heroin and methamphetamine seatbelt use: always do you feel safe at home: Yes ROS ROS ED Constitutional Constitutional ED: Denies chills, fever(s), subjective, sweats or weight loss Eyes Eyes: Denies blurry vision, change in vision or diplopia ENT ENT ED: Denies ear pain, rhinorrhea or sore throat Cardiovascular Cardiovascular: Reports orthopnea; Denies chest pain, palpitations, paroxysmal nocturnal dyspnea or racing heartbeat Respiratory/Chest Respiratory/Chest: Reports dyspnea on exertion and orthopnea; Denies cough, dyspnea or paroxysmal nocturnal dyspnea Gastrointestinal Gastrointestinal: Reports abdominal pain; Denies constipation, diarrhea, melena, nausea or vomiting Genitourinary Genitourinary ED: Denies dysuria, hematuria or urinary frequency Musculoskeletal Musculoskeletal: Denies back pain or neck pain Integumentary Denies rash Neurologic Neurologic: Denies paresthesias or weakness Psychiatric Psychiatric: Reports anxiety Hematologic/Lymphatic Hematologic/Lymphatic: Reports easy bruising EXAM Physical Exam Const Vital Signs: 06/08/24 12:55 06/08/24 16:47 Temperature 97.8 F Temperature Source Temporal Pulse Rate 64 Respiratory Rate 16 Respiratory Pattern Normal Blood Pressure 100/67 Blood Pressure Mean 78 Pulse Ox 100 Oxygen Delivery Method Room Air Positive well nourished and well developed Constitutional Narrative: Vital signs are noted. They are within normal limits for patient. General Appearance ED: well developed; Negative for pallor HEENT Reports moist mucous membranes HEENT Narrative: Head is atraumatic normocephalic. Ears normal. Nares patent. Eyes PERRL and EOMs intact bilaterally General Eye ED: Negative for pale conjunctiva or scleral icterus Neck no lymphadenopathy, supple and no JVD Chest Wall inspection of chest normal and palpation of chest normal Resp normal respiratory effort and clear to auscultation bilaterally GI GI Narrative: Patient has a fluid wave with shifting dullness to percussion. Abdomen is otherwise benign. There is no concern for spontaneous bacterial peritonitis. Back/Spine no CVA tenderness Extremity Negative for normal to inspection Extremity Narrative: Marked pitting edema of both right and left lower extremity. General Extremety ED: Yes edema General Extremity: edema Neuro oriented x3, CN's II-XII intact bilaterally and no sensory deficits noted Sensorium / Orientation: alert Motor Exam: strength 5/5 throughout Psych mental status grossly normal Mood & Affect: Negative for depressed or anxious Skin no rashes or lesions noted, no wounds and skin turgor normal General Skin Exam: elasticity normal; Negative for jaundice or pallor MDM MDM MDM Narrative Medical decision making narrative: Patient has slightly worsening ascites due to alcoholic liver disease. There is no concern for spontaneous bacterial peritonitis. Patient needs a paracentesis. Arrangements are being made for outpatient paracentesis. Jesi Benitez from case management is helping/facilitating this. Patient was scheduled for outpatient paracentesis using ultrasound for Tuesday, June 11 at 8 AM. Discharge Plan Triage Chief Complaint: Edema ED Provider: Shon Quintero Dx/Rx/DC Orders Clinical Impression: Ascites due to alcoholic cirrhosis, Lymphedema of both lower extremities Prescriptions: No Action gabapentin 100 mg capsule 100 mg PO Q12H bacitracin zinc 500 unit/gram Ointment 1 applic topical BID 14 Days Qty: 1 0RF Protocol: *Topical Application Instructions APPLICATION INSTRUCTIONS: affected area Rx Instructions: Apply to chin wound and BL foot wounds. Avoid picking skin. ferrous sulfate [FeroSul] 325 mg (65 mg iron) tablet 325 mg PO DAILY ascorbate calcium (vitamin C) 500 mg tablet 500 mg PO DAILY buspirone 10 mg tablet 10 mg PO 4X/DAY topiramate 50 mg tablet 100 mg PO DAILY desvenlafaxine succinate 50 mg tablet extended release 24 hr 50 mg PO DAILY melatonin 5 mg tablet 5 mg PO QHS PRN (Reason: sleep) spironolactone 50 mg Tablet 50 mg PO BID Qty: 60 1RF furosemide [Lasix] 40 mg tablet 40 mg PO DAILY Qty: 30 0RF Rx Instructions: start on 04/14/24 L. acidophilus/Bifid. animalis 2 billion cell capsule 1 cap PO DAILY 14 Days Qty: 14 0RF albuterol sulfate 90 mcg/actuation HFA aerosol inhaler 1 inh inhalation Q6H PRN (Reason: shortness of breath or wheezing) fluticasone propionate 50 mcg/actuation spray,suspension 1 spray INTRANASAL PRN PRN (Reason: nasal congestion) pantoprazole [Protonix] 40 mg tablet,delayed release (DR/EC) 40 mg PO BID lactulose 10 gram/15 mL solution 10 g PO TID PRN (Reason: stomach upset) phenazopyridine [Pyridium] 200 mg tablet 200 mg PO TID Qty: 6 0RF Other Ambulatory Orders: Paracentesis with US (Routine) Facility: [facility] - Location: [facility] Ordered By: Dr. Shon Quintero Primary Care Provider: Ang Acosta Referrals: Ang Acosta MD [Primary Care Provider] - Activity Restrictions/Additional Instructions: You have an appointment on June 11 at 8 AM for a ultrasound guided paracentesis. Be here 30 minutes before your appointment Print Language: Croatian Disposition Disposition: Home, Self Care
[2024-06-08 17:22] VITALS: PULSE 78; RESP 18; O2SAT 100
== END 2024-06-08 17:25 | disposition home or self-care (01) ==
PROVIDERS: Emergency Provider Emergency Medicine; PCP Family Medicine; Visit Provider Emergency Medicine
DX: K70.31 Alcoholic cirrhosis of liver with ascites (principal); J44.9 Chronic obstructive pulmonary disease, unspecified; I89.0 Lymphedema, not elsewhere classified; Z79.899 Other long term (current) drug therapy; F17.210 Nicotine dependence, cigarettes, uncomplicated
CPT/HCPCS: 99284

== ENCOUNTER 2024-06-13 09:25 | Inpatient (IN) | payer MEDICAID, SELFPAY ==
[2024-06-13] VITALS (14 sets, daily range): BP systolic 95–136; BP diastolic 59–83; PULSE 56–80; RESP 14–18; TEMP 35.8–36.7; O2SAT 95–100; BMI 31.0
--- NOTE | 2024-06-13 09:14 | DCINST_ITS ---
Discharge Instructions Diet Discharge Diet: No restrictions Activity Discharge Activity: Return to Normal Activity and May Not Drive (while taking narcotic pain medications.) Dressing / Incision Call your doctor if you observe: Fever of 101 or Higher Follow Up Care Please Follow Up With: Farzad Dawson MD When: Call [phone] for an appointment Test Results: Test results from this visit will be discussed in further detail at your follow- up appointment, if applicable. Discharge Plan Admission Primary Reason for Your Visit: laser of right kidney ston Attending Provider: Farzad Dawson [facility] Inst[facility] Print Language: [place] Discharge Orders/Prescriptions Prescriptions: Continued gabapentin 100 mg capsule 100 mg PO Q12H bacitracin zinc 500 unit/gram Ointment 1 applic topical BID 14 Days Qty: 1 0RF Protocol: *Topical Application Instructions APPLICATION INSTRUCTIONS: affected area Rx Instructions: Apply to chin wound and BL foot wounds. Avoid picking skin. ferrous sulfate [FeroSul] 325 mg (65 mg iron) tablet 325 mg PO DAILY ascorbate calcium (vitamin C) 500 mg tablet 500 mg PO DAILY buspirone 10 mg tablet 10 mg PO 4X/DAY topiramate 50 mg tablet 100 mg PO DAILY desvenlafaxine succinate 50 mg tablet extended release 24 hr 50 mg PO DAILY melatonin 5 mg tablet 5 mg PO QHS PRN (Reason: sleep) spironolactone 50 mg Tablet 50 mg PO BID Qty: 60 1RF furosemide [Lasix] 40 mg tablet 40 mg PO DAILY Qty: 30 0RF Rx Instructions: start on 04/14/24 L. acidophilus/Bifid. animalis 2 billion cell capsule 1 cap PO DAILY 14 Days Qty: 14 0RF albuterol sulfate 90 mcg/actuation HFA aerosol inhaler 1 inh inhalation Q6H PRN (Reason: shortness of breath or wheezing) fluticasone propionate 50 mcg/actuation spray,suspension 1 spray INTRANASAL PRN PRN (Reason: nasal congestion) pantoprazole [Protonix] 40 mg tablet,delayed release (DR/EC) 40 mg PO BID lactulose 10 gram/15 mL solution 10 g PO TID PRN (Reason: stomach upset) phenazopyridine [Pyridium] 200 mg tablet 200 mg PO TID Qty: 6 0RF Referrals / Follow Up: Farzad Dawson MD [Med Staff - Active Staff] - [facility],Nadia Hoyt [Primary Care Provider] - Disposition Disposition (needs filled in before D/C Order can be placed): Home, Self Care
--- NOTE | 2024-06-13 09:14 | PCM.HP.STD ---
HPI - General General Date of Service: 06/13/24 Chief Complaint: Right ureteral calculi and right renal stone HPI Narrative CAROLINA HIGHTOWER, is a 48 F who presents to laser stone in the right ureter and right kidney as an outpatient [facility] Medical History Redness of skin Blackout Abdominal ascites Urolithiasis Hydronephrosis with renal calculous obstruction Hydroureteronephrosis Bipolar disorder Anxiety Depression Ascites of liver Complete edentulism, class III Alcohol abuse Chronic pain GERD (gastroesophageal reflux disease) Restless legs Iron deficiency anemia Hyperbilirubinemia Substance abuse Marijuana use MRSA infection Low iron Anemia Hepatitis Migraine headache Seizures History of diverticulitis COPD (chronic obstructive pulmonary disease) Smoker Obesity Thrombocytopenia Polysubstance abuse Cirrhosis of liver Anxiety and depression Hepatitis C, chronic Home Medications ?Medication ?Instructions ?Recorded ?Last Taken ?Type gabapentin 100 mg capsule 100 mg PO Q12H nerve pain 07/20/23 05/16/24 History ascorbate calcium (vitamin C) 500 500 mg PO DAILY vitamin 12/04/23 05/16/24 History mg tablet ferrous sulfate 325 mg (65 mg 325 mg PO DAILY supplement 12/04/23 05/16/24 History iron) tablet (FeroSul) buspirone 10 mg tablet 10 mg PO 4X/DAY ANXIETY 04/11/24 05/16/24 History desvenlafaxine succinate 50 mg 50 mg PO DAILY 04/11/24 05/16/24 History tablet,extended release 24 hr melatonin 5 mg tablet 5 mg PO QHS PRN sleep 04/11/24 05/16/24 History topiramate 50 mg tablet 100 mg PO DAILY 04/11/24 05/16/24 History furosemide 40 mg tablet (Lasix) 40 mg PO DAILY DIURETIC #30 tabs 04/13/24 05/16/24 Rx spironolactone 50 mg tablet 50 mg PO BID #60 tabs 04/13/24 05/16/24 Rx bacitracin zinc 500 unit/gram 1 applic topical BID 14 days #1 05/15/24 05/16/24 Rx topical ointment tube Lactobacillus 1 cap PO DAILY 2 weeks #14 caps 06/01/24 Unknown Rx acidophilus-Bifidobac.animalis 2 billion cell capsule albuterol sulfate 90 mcg/actuation 1 inh inhalation Q6H PRN shortness 06/06/24 Unknown History aerosol inhaler of breath or wheezing fluticasone propionate 50 1 spray intranasal PRN PRN nasal 06/06/24 Unknown History mcg/actuation nasal congestion spray,suspension lactulose 10 gram/15 mL oral 10 g PO TID PRN stomach upset 06/06/24 Unknown History solution pantoprazole 40 mg tablet,delayed 40 mg PO BID 06/06/24 Unknown History release (Protonix) phenazopyridine 200 mg tablet 200 mg PO TID 6 doses #6 tabs 06/07/24 Unknown Rx (Pyridium) Allergy/AdvReac Type Severity Reaction Status Date / Time bupropion HCl (From Allergy SEIZURES Verified 06/08/24 12:55 Wellbutrin) codeine Allergy Rash Verified 06/08/24 12:55 Family History Mother Diabetes Father Cancer HX Throat CA. Surgical History History of abdominal paracentesis H/O tubal ligation History of liver biopsy Social History adopted: No household members: family housing: other number of children: 3 current occupational status: unemployed pets and animals: Yes history of recent travel: No sexually active: Yes Smoking Status: Current every day smoker tobacco type: cigarettes second hand exposure: Yes alcohol intake: current alcohol intake frequency: a few times a month substance use type: former substance user Date of last use: heroin, marijuana, heroin and methamphetamine seatbelt use: always do you feel safe at home: Yes
[2024-06-13] MEDS: Lactated Ringers 1,000 ML 15 ML IV (09:37)
--- NOTE | 2024-06-13 09:43 | PCM.PRE.AN2 ---
ASA Classification* ASA Classification ASA Classification: 3 Assessment & Plan Anesthesia* Anesthesia Assessment Anesthesia Assessment: Discussed sedation and/or anesthesia options, risks, benefits, and alternatives with patient/parents/legal guardian/POA. Questions invited. The patient/parents/legal guardian/POA seems to understand and agrees to proceed with anesthesia plan. Reviewed the physical assessment, medical history, allergy history and patient home medications list prior to surgery/procedure/anesthetic and documented any changes. Performed airway and anesthesia risk assessments. Anesthesia Type Anesthesia Type: General Anesthesia Focused Assessment* Temperature: 98.0 F Pulse Rate: 57 Blood Pressure: 113/71 Respiratory Rate: 18 Pulse Ox: 100 Airway Assessment Mouth opens: >3 cm Mallampati Score: II Focused Labs Anesthesia Preop lab: CBC WBC 8.1 K/mm3 (4.4-11.0) 06/07/24 12:15 RBC 3.80 M/mm3 (4.2-5.4) L 06/07/24 12:15 Hgb 11.7 g/dL (12.0-15.0) L 06/07/24 12:15 Hct 34.1 % (37-47) L 06/07/24 12:15 Plt Count 77 K/mm3 (150-450) L 06/07/24 12:15 CHEMISTRY Potassium 3.8 mmol/L (3.5-5.1) 06/07/24 12:15 Sodium 139 mmol/L (136-145) 06/07/24 12:15 Magnesium 2.0 mg/dL (1.6-2.6) 05/29/24 19:30 Phosphorus 1.9 mg/dL (2.5-4.9) L 05/29/24 19:30 BUN 7 mg/dL (7-18) 06/07/24 12:15 Creatinine 0.86 mg/dL (0.55-1.02) 06/07/24 12:15 Glucose 105 mg/dL (74-106) 06/07/24 12:15 TSH 1.66 uIU/mL (0.358-3.74) 04/12/24 07:10 COAG PT 18.4 SECONDS (11.7-14.9) H 05/14/24 04:10 Urine Test Negative Negative 05/17/24 13:58 Pre-Assessment Diagnosis/Proposed Procedure Planned Operative Procedure(s): RIGHT URETEROSCOPY LASER LITHOTRIPSY AND STENT REMOVAL Anesthesia History Anesthesia History - manager marketing communications: Anesthesia History - manager marketing communications Hx Hospitalization Yes: 04/2024 FOR KIDNEY STONE 06/06/24 14:22 Any Problems With Anesthesia No 06/06/24 14:22 Cholinesterase deficiency No 06/06/24 14:22 You/Your Family Experience No 06/06/24 14:22 fever (hyperthermia) with Relationship Recent Exposure to Contagious No 06/13/24 09:33 Disease Does patient have nerve No 06/06/24 14:22 stimulator Patient instructed to have device shut off --Does patient have Pacemaker No 06/13/24 09:33 or ICD? When Was Last Pacemaker Check QUESTION #4 FULL TEXT: You/Your Family Experience fever (hyperthermia) with Anesthesia Last Oral Intake Last Oral intake: Last Oral Intake NPO since 00:00 06/13/24 09:33 Meds taken in AM with sips of No 06/13/24 09:33 water? Meds patient instructed to take am of surgery PONV PONV - manager marketing communications: PONV - manager marketing communications Female Yes 06/06/24 14:22 HX of Motion Sickness No 06/06/24 14:22 HX of N/V After Surgery No 06/06/24 14:22 Non-Smoker No 06/06/24 14:22 Duration of Surgery greater No 06/06/24 14:22 than 60 minutes Number of Risk Factors 1 06/06/24 14:22 PONV Score Low Risk 06/06/24 14:22 Height & Weight Height & Weight: Anesthesia: Height & Weight Height 5 ft 2 in 06/13/24 09:33 Weight: 77 kg 06/13/24 09:33 Body Mass Index (BMI) 31.0 06/13/24 09:33 Respiratory Assessment Respiratory Assessment - manager marketing communications: Respiratory Tract Infection Hx - manager marketing communications Hx Respiratory Tract Infection No 06/06/24 14:22 STOP Sleep Apnea STOP Sleep Apnea - manager marketing communications: STOP Sleep Apnea - manager marketing communications Hx Hypertension No 06/06/24 14:22 Hx Sleep Apnea No 06/06/24 14:22 CPAP No 06/06/24 14:22 BIPAP No 06/06/24 14:22 Do you snore loudly (louder Yes 06/06/24 14:22 than talking or can be heard Do you often feel tired/ Yes 06/06/24 14:22 fatigued/ sleepy during daytime? Has anyone observed you stop No 06/06/24 14:22 breathing during sleep? STOP Results Positive 06/06/24 14:22 QUESTION #5 FULL TEXT : Do you snore loudly (louder than talking or can be heard through closed doors)? 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 Specify any problems Hx of Preganancy in last 3 No 06/06/24 14:22 Months Nurse Filling Out Transfusion DSCHRIBER 06/06/24 14:22 & Questions: Date: 06/06/24 06/06/24 14:22 Time: 14:26 06/06/24 14:22 Patient unable to answer at this time (ie. confused, unrespo /Reproduction History /Reproductive History - manager marketing communications: /Reproductive Hx- manager marketing communications Hx Now Gestational Age (in weeks): EDC: Hx Hx Para Hx Section SAB No 06/06/24 14:22 Active Medications Active Medications: Current Medications Generic Name Dose Route Start Last Admin Trade Name Freq PRN Reason Stop Dose Admin Acetaminophen 650 mg 06/13/24 09:13 Acetaminophen 325 Mg Tablet PO Q4H PRN PRN Pain Score 1-5 Albuterol Sulfate 1 puff 06/13/24 09:26 Albuterol Sulfate 8 Gm Inhaler (60 Puffs) INHALATION Q6H PRN shortness of breath or wheezing Bacitracin 1 applic 06/13/24 10:00 Bacitracin 15 Gm Tube TOPICAL BID NELIA Protocol Ferrous Sulfate 325 mg 09/18/24 10:00 Ferrous Sulfate 325 Mg Tablet PO DAILY [facility] Fluticasone Propionate 1 spray 06/13/24 09:26 Fluticasone 0.05% 1 [place] Nasal.Sry NASAL PRN PRN nasal congestion Furosemide 40 mg 06/13/24 10:00 Furosemide 40 Mg Tablet PO DAILY [facility] Protocol Gabapentin 100 mg 06/13/24 09:30 Gabapentin 100 Mg Capsule PO Q12H [facility] Cefazolin Sodium 2 gm/ Sodium 110 mls @ 150 mls/hr 06/13/24 09:55 Chloride IV 06/13/24 10:38 PREOP ONE Lactated Ringer's 1,000 mls @ 100 mls/hr 06/13/24 09:15 IV .Q10H NELIA Lactated Ringer's 1,000 mls @ 15 mls/hr 06/13/24 09:15 06/13/24 09:37 IV 15 mls/hr .Q48H [facility] Administration Ketorolac Tromethamine 15 mg 06/13/24 09:13 Ketorolac 15 Mg/Ml Vial IV 06/13/24 09:14 X1 ONE Lactulose 10 gm 06/13/24 09:26 Lactulose 20 Gm/30 Ml Udc PO TID PRN stomach upset Metoclopramide HCl 10 mg 06/13/24 09:13 Metoclopramide 10 Mg/2 Ml Vial IV X1 PRN NAUSEA/VOMITING Non-Formulary Medication 10 mg 06/13/24 10:00 Buspirone PO 4X/DAY [facility] Non-Formulary Medication 50 mg 06/13/24 10:00 Desvenlafaxine Succinate PO DAILY [facility] Non-Formulary Medication 1 cap 06/13/24 10:00 L. Acidophilus/Bifid. Animalis PO DAILY [facility] Non-Formulary Medication 5 mg 06/13/24 09:26 Melatonin PO QHS PRN sleep Ondansetron HCl 4 mg 06/13/24 09:13 Ondansetron 4 Mg/2 Ml Vial IV X1 PRN NAUSEA Pantoprazole Sodium 40 mg 06/13/24 10:00 Pantoprazole Sodium 40 Mg Tablet PO BID [facility] PFSH Medical History Redness of skin Blackout Abdominal ascites Urolithiasis Hydronephrosis with renal calculous obstruction Hydroureteronephrosis Bipolar disorder Anxiety Depression Ascites of liver Complete edentulism, class III Alcohol abuse Chronic pain GERD (gastroesophageal reflux disease) Restless legs Iron deficiency anemia Hyperbilirubinemia Substance abuse Marijuana use MRSA infection Low iron Anemia Hepatitis Migraine headache Seizures History of diverticulitis COPD (chronic obstructive pulmonary disease) Smoker Obesity Thrombocytopenia Polysubstance abuse Cirrhosis of liver Anxiety and depression Hepatitis C, chronic Home Medications ?Medication ?Instructions ?Recorded ?Last Taken ?Type gabapentin 100 mg capsule 100 mg PO Q12H nerve pain 07/20/23 06/12/24 History ascorbate calcium (vitamin C) 500 500 mg PO DAILY vitamin 12/04/23 06/12/24 History mg tablet ferrous sulfate 325 mg (65 mg 325 mg PO DAILY supplement 12/04/23 06/12/24 History iron) tablet (FeroSul) buspirone 10 mg tablet 10 mg PO 4X/DAY ANXIETY 04/11/24 06/12/24 History desvenlafaxine succinate 50 mg 50 mg PO DAILY 04/11/24 06/12/24 History tablet,extended release 24 hr melatonin 5 mg tablet 5 mg PO QHS PRN sleep 04/11/24 06/12/24 History topiramate 50 mg tablet 100 mg PO DAILY 04/11/24 06/12/24 History furosemide 40 mg tablet (Lasix) 40 mg PO DAILY DIURETIC #30 tabs 04/13/24 06/12/24 Rx spironolactone 50 mg tablet 50 mg PO BID #60 tabs 04/13/24 06/12/24 Rx bacitracin zinc 500 unit/gram 1 applic topical BID 14 days #1 05/15/24 06/12/24 Rx topical ointment tube Lactobacillus 1 cap PO DAILY 2 weeks #14 caps 06/01/24 Unknown Rx acidophilus-Bifidobac.animalis 2 billion cell capsule albuterol sulfate 90 mcg/actuation 1 inh inhalation Q6H PRN shortness 06/06/24 Unknown History aerosol inhaler of breath or wheezing fluticasone propionate 50 1 spray intranasal PRN PRN nasal 06/06/24 06/12/24 History mcg/actuation nasal congestion spray,suspension lactulose 10 gram/15 mL oral 10 g PO TID PRN stomach upset 06/06/24 06/12/24 History solution pantoprazole 40 mg tablet,delayed 40 mg PO BID 06/06/24 06/12/24 History release (Protonix) phenazopyridine 200 mg tablet 200 mg PO TID 6 doses #6 tabs 06/07/24 06/12/24 Rx (Pyridium) Allergy/AdvReac Type Severity Reaction Status Date / Time bupropion HCl (From Allergy SEIZURES Verified 06/13/24 09:30 Wellbutrin) codeine Allergy Rash Verified 06/13/24 09:30 Family History Mother Diabetes Father Cancer HX Throat CA. Surgical History History of abdominal paracentesis H/O tubal ligation History of liver biopsy Social History adopted: No household members: family housing: other number of children: 3 current occupational status: unemployed pets and animals: Yes history of recent travel: No sexually active: Yes Smoking Status: Current every day smoker tobacco type: cigarettes second hand exposure: Yes alcohol intake: current alcohol intake frequency: a few times a month substance use type: former substance user Date of last use: heroin, marijuana, heroin and methamphetamine seatbelt use: always do you feel safe at home: Yes Review of Systems (Anesthesia) ROS Narrative System reviewed and no additional complaints, except as documented.
[2024-06-13] MEDS: Cefazolin 2 GM in 0.9% Normal Saline (100mL Bag) 100 ML IV (09:51)
--- NOTE | 2024-06-13 10:33 | OP.PCM_ITS ---
Report of Operation Date of Procedure: 06/13/24 Pre-Operative Diagnosis: Right renal calculi Post-Operative Diagnosis: The same Surgery/Procedure Performed:: Cystoscopy, right ureteroscopy laser lithotripsy of stone and right stent removal Description of Surgical Findings:: This is a patient who presents to the hospital for treatment for an obstructing ureter calculi. I discussed with the patient how the surgery would be performed and we reviewed the risks and benefits of the surgery. The risk and benefits include the risk of failure to remove the stone completely and that the patient may need multiple procedures. We discussed the risk of an infection, the risk of bleeding. We discussed the very rare risk of serious complicated injury to the ureter. The patient understands that if the stone is not able to be removed safely that we may abort the procedure and place a stent. After full discussion and all questions address with the patient the consent form was signed the side was marked appropriately and the patient was taken back to the operating room for the procedure. Finding: Stone in right kidney lasered completely and sent removed, stone lasered into dust. The patient was taken back to the operating room. After induction of anesthesia by the anesthesiology team the patient was placed in dorsolithotomy position. The genitals were prepped and draped in usual sterile fashion. I went into the bladder with a 21 [place] rigid cystourethroscope through the urethra. Upon entering the bladder I inspected the trigone the left and right ureteral orifice and the bladder itself. I then cannulated the ureteral orifice and advanced a 0.038 Glidewire up into the kidney. Then over the Glidewire I advanced a 5 Fr Ureteral catheter and performed a retrograde pyelogram with about 10cc of contrast, to delineate the anatomy and identify the stone location. Then a ureteral balloon dilator was advanced over the wire and the distal ureter was balloon dilated with a 12 Fr x 5cm balloon dilator. After 3 minutes of dilating the ureter the balloon was backloaded off the 0.038 glidewire over the 0.038 guidewire I went in with the flexible 7.5fr ureteroscope. I was able to go inside with the 7.5Fr utereroscope and I pulled out the guidewire and then through the ureteroscope I engage the stone with laser lithotripsy using a 270miron laser fiber with energy setting of 6 Hertz and 0.6 J until the stone was lasered into tiny little pieces that should pass on their own. A retrograde pyelogram was performed with 10cc of contrast and no extravasation of contrast or perforation was identified in the kidney there was some mild irritation of the ureter where the stone was located. I then backed out of the ureter left the wire in place and then over the 0.038 guidewire I placed a double coiled pigtail ureteral stent. I then drained the patient's bladder and the cystoscope was removed and the patient was taken back to the recovery room in good position. Surgeon: Farzad Dawson Type of Anesthesia: General Drains: none Estimated Blood Loss (mL): 0 Admit VTE Documentation VTE Present on Admission: No VTE Mechan Device Prophylaxis: SCD's VTE Pharm Prophylaxis ordered?: No
--- NOTE | 2024-06-13 10:42 | PCM.POST.ANE ---
Anesthesia: Postop Eval I Current Vital Signs Temperature: 97 F Pulse Rate: 56 Blood Pressure: 136/73 Respiratory Rate: 16 Pulse Ox: 100 Oxygen Delivery Method: Room Air Assessment Airway patent: Yes Spontaneous unlabored respirations: Yes Mental status: Awake and Calm nausea: No Vomiting: No Anesthesia Complication: No Fluid Hydration Crystalloid volume administer (ml): 500 Total IV fluid infused: 500 Progress Note Anesthesia document: Postop Eval 1 completed: Yes
[2024-06-13] MEDS: Ketorolac 15 MG/ML Vial IV (12:51)
--- NOTE | 2024-06-13 13:07 | CON.PCM.HO_ITS ---
Assessment & Plan Assessment/Plan (1) Right ureteral stone: (2) Decompensated cirrhosis: (3) Abdominal ascites: PLAN: Plan Patient is a 48-year-old female who presented to [facility] on 06/13/2024 for planned urology procedure. Medicine consulted postoperatively for medical management. 1. Right ureteral stone ? Urology primary. S/p cystoscopy with right ureteroscopic laser lithotripsy of stone and right stent removal on 06/[address] Dawson. Tolerated procedure well, no intraoperative complications. Urinating postoperatively with no pain or discomfort. Further management per urology. 2. Decompensated cirrhosis with recurrent ascites ? Known history of decompensated cirrhosis secondary to chronic alcohol use, chronic hepatitis C and KEYES. Hemodynamically stable on admission with stable lab values but noted to have worsening recurrent ascites with abdominal discomfort. Radiology consulted for therapeutic paracentesis. Holding home Lasix and spironolactone for now given mild postop hypotension with mild creatinine elevation as noted below, will restart when able. Continue home lactulose. 3. Homelessness ? Case management consulted for assistance with discharge planning. 4. Mild postoperative hypotension with mild creatinine elevation ? Creatinine 1.19 postoperatively, baseline 0.8-0.9. Presumed prerenal etiology. Received small LR fluid bolus and given a dose of IV albumin as well with some improvement in blood pressure. Monitor daily BMP and urine output. Holding home diuretics as noted above. Chronic medical conditions: ? Obesity: BMI 31 on admit. Complicates hospital course, care and prognosis. ? Chronic anemia: Hemoglobin stable at baseline 11-12 on admit. Continue home iron supplement. ? Chronic thrombocytopenia: Platelets stable at baseline around 70 on admit. ? Anxiety/depression/insomnia/neuropathy: Stable. Continue home BuSpar, desvenlafaxine, gabapentin, topiramate and melatonin at night as needed. ? GERD: Continue home PPI. ? History of alcohol abuse: Encouraged continued cessation. DVT prophylaxis: Lovenox Total clinical time spent by myself addressing the patient's medical issues, reviewing all the data, and collaborating with patient's care team: 50 minutes. HPI Consult Data Date of Consult: 06/13/24 HPI Narrative Reason for Consultation: Postoperative medical management HPI Narrative: CAROLINA HIGHTOWER, is a 48 F who presented to [facility] on 06/13/2024 for planned urology procedure. Medicine consulted postoperatively for medical management. Patient had known right renal calculi and had cystoscopy with right ureteroscopic laser lithotripsy of stone and right stent removal done by Dr. Dawson today. Patient tolerated procedure without issue. She had mild postoperative hypotension but was otherwise feeling well. It appears she was primarily admitted for ongoing management of her known decompensated cirrhosis with worsening ascites and for social issues as she is homeless. I saw patient at the bedside this afternoon. Patient was laying comfortably in bed, in no acute distress. She had urinated since the procedure and had no pain or difficulty with urination. She does report abdominal bloating that she attributes to recurrent ascites and states it has been sometime since her last paracentesis. She denies any fevers or chills. Denies any abdominal tenderness to palpation. She denies any other acute concerns at this time. On chart review, patient was recently hospitalized here from 05/30-05/31 for abdominal pain and concern for SBP. She had paracentesis done in the ED on 05/30 and was studies were negative for SBP. However, there was concern for possible colitis versus UTI and patient was empirically treated with 7-day course of antibiotics total. Plan was for her to continue home furosemide and spironolactone on discharge and follow-up with the GI office 1 month after discharge. [facility] Medical History (Updated 06/13/24 @ 15:[address] Reji Pittman, ) Abdominal ascites Redness of skin Blackout Urolithiasis Hydronephrosis with renal calculous obstruction Hydroureteronephrosis Bipolar disorder Anxiety Depression Ascites of liver Complete edentulism, class III Alcohol abuse Chronic pain GERD (gastroesophageal reflux disease) Restless legs Iron deficiency anemia Hyperbilirubinemia Substance abuse Marijuana use MRSA infection Low iron Anemia Hepatitis Migraine headache Seizures History of diverticulitis COPD (chronic obstructive pulmonary disease) Smoker Obesity Thrombocytopenia Polysubstance abuse Cirrhosis of liver Anxiety and depression Hepatitis C, chronic Home Medications ?Medication ?Instructions ?Recorded ?Last Taken ?Type gabapentin 100 mg capsule 100 mg PO Q12H nerve pain 07/20/23 06/12/24 History ascorbate calcium (vitamin C) 500 500 mg PO DAILY vitamin 12/04/23 06/12/24 History mg tablet ferrous sulfate 325 mg (65 mg 325 mg PO DAILY supplement 12/04/23 06/12/24 History iron) tablet (FeroSul) buspirone 10 mg tablet 10 mg PO 4X/DAY ANXIETY 04/11/24 06/12/24 History desvenlafaxine succinate 50 mg 50 mg PO DAILY 04/11/24 06/12/24 History tablet,extended release 24 hr melatonin 5 mg tablet 5 mg PO QHS PRN sleep 04/11/24 06/12/24 History topiramate 50 mg tablet 100 mg PO DAILY 04/11/24 06/12/24 History furosemide 40 mg tablet (Lasix) 40 mg PO DAILY DIURETIC #30 tabs 04/13/24 06/12/24 Rx spironolactone 50 mg tablet 50 mg PO BID #60 tabs 04/13/24 06/12/24 Rx bacitracin zinc 500 unit/gram 1 applic topical BID 14 days #1 05/15/24 06/12/24 Rx topical ointment tube Lactobacillus 1 cap PO DAILY 2 weeks #14 caps 06/01/24 Unknown Rx acidophilus-Bifidobac.animalis 2 billion cell capsule albuterol sulfate 90 mcg/actuation 1 inh inhalation Q6H PRN shortness 06/06/24 Unknown History aerosol inhaler of breath or wheezing fluticasone propionate 50 1 spray intranasal PRN PRN nasal 06/06/24 06/12/24 History mcg/actuation nasal congestion spray,suspension lactulose 10 gram/15 mL oral 10 g PO TID PRN stomach upset 06/06/24 06/12/24 History solution pantoprazole 40 mg tablet,delayed 40 mg PO BID 06/06/24 06/12/24 History release (Protonix) phenazopyridine 200 mg tablet 200 mg PO TID 6 doses #6 tabs 06/07/24 06/12/24 Rx (Pyridium) Allergy/AdvReac Type Severity Reaction Status Date / Time bupropion HCl (From Allergy SEIZURES Verified 06/13/24 09:30 Wellbutrin) codeine Allergy Rash Verified 06/13/24 09:30 Family History Mother Diabetes Father Cancer HX Throat CA. Surgical History History of abdominal paracentesis H/O tubal ligation History of liver biopsy Social History adopted: No household members: family housing: other number of children: 3 current occupational status: unemployed pets and animals: Yes history of recent travel: No sexually active: Yes Smoking Status: Current every day smoker tobacco type: cigarettes second hand exposure: Yes alcohol intake: current alcohol intake frequency: a few times a month substance use type: former substance user Date of last use: heroin, marijuana, heroin and methamphetamine seatbelt use: always do you feel safe at home: Yes ROS Constitutional Constitutional: Denies chills, fatigue, fever(s) or weakness Eyes Eyes: Denies change in vision Cardiovascular Cardiovascular: Denies chest pain Respiratory/Chest Respiratory/Chest: Denies shortness of breath at rest Gastrointestinal Gastrointestinal: Reports constipation, nausea and other Details: Abdominal bloating noted. ; Denies abdominal pain, diarrhea or vomiting Genitourinary Genitourinary: Denies dysuria Musculoskeletal Musculoskeletal: Denies arthralgias or myalgias Neurologic Neurologic: Denies dizziness, focal weakness or headache(s) Physical Exam Const alert, oriented x3 and no apparent distress Constitutional Narrative: Middle-age female, appears somewhat older than stated age, obese, mildly fatigued appearing, otherwise laying comfortably in bed, in no acute distress. General Appearance: cooperative and comfortable HEENT normocephalic, head/scalp atraumatic, hearing grossly normal bilaterally, nasal mucous membranes and turbinates normal and moist oral mucous membranes Eyes PERRL, EOMs intact bilaterally and conjunctivae normal Neck full ROM Chest inspection of chest normal Resp normal respiratory effort, normal air movement, no use of accessory muscles and clear to auscultation bilaterally Cardio regular rate, regular rhythm, no murmurs and peripheral pulses 2+ throughout GI GI Narrative: Abdomen moderately hard and distended with fluid wave noted. No tenderness to palpation. Back/Spine normal ROM Extremity normal to inspection, full ROM and no pedal edema Skin no rashes or lesions noted Neuro no focal motor deficits and no sensory deficits noted Speech: speech normal Psych mental status grossly normal Lab / Micro Data 06/13/24 14:15 06/13/24 14:15 Charges/Coding Visit Charges Inpatient E&M: 82574 Subs Hosp L3
--- NOTE | 2024-06-13 13:08 | POSTOPAN2_ITS ---
Anesthesia Postop Eval I Sum Postop Eval Completion status Anesthesia document: Postop Eval 1 completed: Yes Anesthesia Postop Eval I Summary Anesthesia Postop Eval I Summary: Anesthesia Postop Eval I: Assessment Summary Airway patent Yes 06/13/24 10:42 HOUSEKEEPING AND LAUNDRY TEAM [email or web address] Spontaneous unlabored Yes 06/13/24 10:42 HOUSEKEEPING AND LAUNDRY TEAM LEADERCEDRIC respirations Mental status Awake,Calm 06/13/24 10:42 HOUSEKEEPING AND LAUNDRY TEAM LEADER.ARELY nausea No 06/13/24 10:42 HOUSEKEEPING AND LAUNDRY TEAM LEADER.ARELY Vomiting No 06/13/24 10:42 HOUSEKEEPING AND LAUNDRY TEAM LEADERCEDRIC Anesthesia Postop Eval I: Fluid Summary Crystalloid volume administer 500 06/13/24 10:42 HOUSEKEEPING AND LAUNDRY TEAM LEADER.ARELY (ml) Colloids volume administered ( ml) Blood Product volume administered (ml) Total IV fluid infused 500 06/13/24 10:42 HOUSEKEEPING AND LAUNDRY TEAM LEADERCEDRIC Anesthesia Postop Eval I: Summary Notes Anesthesia Complication No 06/13/24 10:42 MARIAN Anesthesia Complication Comment: Post-operative progress note Anesthesia: Postop Eval II Evaluation Mental status: Awake Pain Level: 0 nausea: No Vomiting: No
--- NOTE | 2024-06-13 13:08 | PCM.POSTANE2 ---
Anesthesia Postop Eval I Sum Postop Eval Completion status Anesthesia document: Postop Eval 1 completed: Yes Anesthesia Postop Eval I Summary Anesthesia Postop Eval I Summary: Anesthesia Postop Eval I: Assessment Summary Airway patent Yes 06/13/24 10:42 CIVIL [email or web address] Spontaneous unlabored Yes 06/13/24 10:42 CIVIL DRAFTSMANCEDRIC respirations Mental status Awake,Calm 06/13/24 10:42 CIVIL DRAFTSMAN.ARELY nausea No 06/13/24 10:42 CIVIL DRAFTSMAN.ARELY Vomiting No 06/13/24 10:42 CIVIL DRAFTSMANCEDRIC Anesthesia Postop Eval I: Fluid Summary Crystalloid volume administer 500 06/13/24 10:42 CIVIL DRAFTSMAN.ARELY (ml) Colloids volume administered ( ml) Blood Product volume administered (ml) Total IV fluid infused 500 06/13/24 10:42 CIVIL DRAFTSMANCEDRIC Anesthesia Postop Eval I: Summary Notes Anesthesia Complication No 06/13/24 10:42 MARIAN Anesthesia Complication Comment: Post-operative progress note Anesthesia: Postop Eval II Evaluation Mental status: Awake Pain Level: 0 nausea: No Vomiting: No
[2024-06-13 14:26] LABS: Absolute Lymphocyte Count 0.78 X10^3/uL (0.83-4.51); Absolute Neutrophil Count 5.6 X10^3/uL (2.0-7.7); Basophil# 0.03 X10^3/uL; Basophil% 0.5 % (0-1); Eosinophil# 0.03 X10^3/uL; Eosinophils% 0.5 % (0-5); Hematocrit 34.9 % (37-47); Hemoglobin 11.4 g/dL (12.0-15.0); Lymphocyte # 0.78 X10^3/ul (0.83-4.51); Lymphocyte % 11.7 % (19-41); Mean Corp Hgb Conc 32.7 g/dL (32-36); Mean Corpuscular Hgb 30.4 pg (27.0-32.0); Mean Corpuscular Volume 93.1 fL (81-99); Mean Platelet Vol. 10.4 fl (6.2-12.0); Monocyte# 0.13 X10^3/uL; NRBC Flagged by Analyzer 0 % (0-5); Neutrophil # 5.63 X10^3/uL (2.7-7.7); Neutrophil % 84.5 % (47-70); POSITIVE COUNT YES; Platelet Count 74 K/mm3 (150-450); RBC Distribution Width CV 17.2 % (11.6-14.6); RBC Distribution Width SD 57.8 fl (35.1-43.9); Red Blood Count 3.75 M/mm3 (4.2-5.4); White Blood Count 6.7 K/mm3 (4.4-11.0)
--- NOTE | 2024-06-13 14:35 | NURSING ---
off of unit in radiology for procedure
[2024-06-13 14:38] LABS: ALB/GLOB Ratio 0.5 RATIO (0.9-2.4); AST(SGOT) 124 U/L (15-37); Alanine Aminotransfer ALT/SGPT 82 U/L (13-56); Albumin, Serum 2.3 g/dL (3.2-5.0); Alkaline Phosphatase 147 U/L (45-117); Anion Gap 10 (5-15); BUN 9 mg/dL (7-18); BUN/Creat Ratio 7.6 RATIO (10-20); Calcium,Total 8.6 mg/dL (8.5-10.1); Chloride 111 mmol/L (98-107); Creatinine, Serum 1.19 mg/dL (0.55-1.02); EST Glomerular Filtration Rate 51 mL/min (>60); Est Glom Filt Rate - Afr Amer 62 mL/min (>60); Estimated Creatinine Clearance 54.34 ml/min; Globulin 4.3 g/dL (2.2-4.2); Glucose 217 mg/dL (74-106); International Normalized Ratio 1.6; Potassium 3.6 mmol/L (3.5-5.1); Protein, Total 6.6 g/dL (6.4-8.2); Prothrombin Time (Protime)PT. 18.7 SECONDS (11.7-14.9); Sodium Level 139 mmol/L (136-145)
[2024-06-13] MEDS: Lidocaine 2% (20 ml mdv) 20 ML Vial INFILT (14:40)
[2024-06-13] MEDS: busPIRone 5 MG Tablet 10 MG PO ×2 (15:46→22:03)
[2024-06-13] MEDS: Ferrous Sulfate 325 MG Tablet PO (15:46)
[2024-06-13] MEDS: Albumin Human 25% (100 mL) 25 GM/100 ML BAG IV (15:48)
[2024-06-13] MEDS: 0.9% Saline Lock 10 ML Syringe IV (15:50)
[2024-06-13] MEDS: Acetaminophen 325 MG Tablet 650 MG PO (15:58)
--- NOTE | 2024-06-13 16:03 | CASEMGMT ---
Social Work Pt is familiar to this worker from previous visits. Referral had been made to [facility] for the AL waiver program on 05/18/24. SHELL followed up with [facility] on 05/31 and the case had not yet been opened. SHELL called [facility] on this date and left requesting return call to discuss referral. SHELL will await return call. MIRIAM Larson
--- NOTE | 2024-06-13 16:47 | PRO.PCM_ITS ---
Procedure Report Date of Procedure: 06/13/24 Assessment & Plan Assessment/Plan (1) Abdominal ascites: QUALIFIERS: Ascites type: due to alcoholic cirrhosis Qualified Code(s): K70.31 - Alcoholic cirrhosis of liver with ascites PLAN: PROCEDURE: Ultrasound guided paracentesis ORDERING PROVIDER: Dr. Pittman INDICATION: Female, 48 years old. Abdominal ascites. PROVIDER: JOSHUA Mc TECHNIQUE: The risks, benefits, and alternatives to the procedure were explained to the patient. The specific risks of bleeding, infection, and damage to bowel were detailed and accepted. Witnessed informed consent was obtained. The abdomen was ultrasonographically surveyed. An appropriate pocket of fluid was identified in the left lower quadrant. The skin was prepped with chlorhexidine and sterile field established. 2% lidocaine was used for local anesthetic. Using ultrasound guidance, the peritoneal cavity was accessed with a 5-[place] paracentesis needle/catheter system. The trocar was removed. A total of 5550 ml of clear yellow colored fluid was removed from the peritoneal cavity. The catheter was removed and a sterile dressing was applied. The procedure was well tolerated. IMPRESSION: Successful ultrasound guided paracentesis with left lower quadrant access site. Procedures Radiology Radiology US Procedures: 51750 Paracentesis
[2024-06-13] MEDS: Gabapentin 100 MG Capsule PO (22:02)
[2024-06-13] MEDS: Pantoprazole Sodium 40 MG Tablet PO (22:03)
[2024-06-13] MEDS: Arthritis Pain Compound 60 CLICK TUBE TOPICAL (22:04)
[2024-06-14] MEDS: busPIRone 5 MG Tablet 10 MG PO ×3 (04:57→21:25)
[2024-06-14 05:00] VITALS: BP 80/48; PULSE 62; RESP 16; TEMP 36.9; O2SAT 99
[2024-06-14] MEDS: 0.9% Normal Saline (500mL Bag) 500 ML 999 ML IV (05:22)
[2024-06-14 06:14] VITALS: BP 87/48; PULSE 70; RESP 16; TEMP 36.9; O2SAT 97
[2024-06-14 06:54] LABS: Hemoglobin 9.3 g/dL (12.0-15.0); Mean Corp Hgb Conc 33.2 g/dL (32-36); Mean Corpuscular Hgb 30.5 pg (27.0-32.0); Mean Corpuscular Volume 91.8 fL (81-99); Mean Platelet Vol. 10.8 fl (6.2-12.0); POSITIVE COUNT YES; Platelet Count 61 K/mm3 (150-450); RBC Distribution Width CV 16.6 % (11.6-14.6); RBC Distribution Width SD 55.8 fl (35.1-43.9); Red Blood Count 3.05 M/mm3 (4.2-5.4); White Blood Count 10.9 K/mm3 (4.4-11.0)
[2024-06-14 07:09] LABS: Scan Indicated on CBC? Y/N NO
[2024-06-14 07:24] LABS: ALB/GLOB Ratio 0.7 RATIO (0.9-2.4); AST(SGOT) 78 U/L (15-37); Alanine Aminotransfer ALT/SGPT 54 U/L (13-56); Albumin, Serum 2.2 g/dL (3.2-5.0); Alkaline Phosphatase 124 U/L (45-117); Anion Gap 4 (5-15); BUN 13 mg/dL (7-18); BUN/Creat Ratio 13.4 RATIO (10-20); Calcium,Total 8.4 mg/dL (8.5-10.1); Chloride 113 mmol/L (98-107); Creatinine, Serum 0.97 mg/dL (0.55-1.02); EST Glomerular Filtration Rate 64 mL/min (>60); Est Glom Filt Rate - Afr Amer 78 mL/min (>60); Estimated Creatinine Clearance 66.66 ml/min; Globulin 3.2 g/dL (2.2-4.2); Glucose 162 mg/dL (74-106); Potassium 3.8 mmol/L (3.5-5.1); Protein, Total 5.4 g/dL (6.4-8.2); Sodium Level 138 mmol/L (136-145)
--- NOTE | 2024-06-14 07:35 | PN.URO_ITS ---
Subjective Subjective Status post laser of a stone in the right kidney also removal of right stent she was kept in the hospital since she did not have a ride home she is doing better this morning and we will discharge her to home this morning. Objective Data Objective Data Vital Signs: Vital Signs Temp Pulse Resp BP Pulse Ox O2 Del Method 98.5 F 70 16 87/48 L 97 Room Air 06/14/24 06:14 06/14/24 06:14 06/14/24 06:14 06/14/24 06:14 06/14/24 06:14 06/14/24 06:14 Oxygen Delivery Method Room Air Weight: 77 kg Body Mass Index (BMI) 31.0 Intake & Output: Intake and Output for Last 24 Hours 06/12/24 06/13/24 06/14/24 23:59 23:59 23:59 Intake Total 302.75 / 302.75 500 / 500 Output Total 5550 / 5550 Balance -5247.25 / -5247.25 500 / 500 Lab / Micro Data 06/14/24 06:13 06/14/24 06:13 Labs: Laboratory Results - last 24 hr 06/13/24 14:15: WBC 6.7, RBC 3.75 L, Hgb 11.4 L, Hct 34.9 L, MCV 93.1, MCH 30.4, MCHC 32.7, RDW Std Deviation 57.8 H, RDW Coeff of Katalina 17.2 H, Plt Count 74 L, MPV 10.4, Immature Gran % (Auto) 0.800, Neut % (Auto) 84.5 H, Lymph % (Auto) 11.7 L, [place] % (Auto) 2.0, Eos % (Auto) 0.5, Baso % (Auto) 0.5, Absolute Neuts (auto) 5.6, Absolute Lymphs (auto) 0.78 L, Nucleated RBC % 0, PT 18.7 H, INR 1.6, Sodium 139, Potassium 3.6, Chloride 111 H, Carbon Dioxide 18.0 L, Anion Gap 10, BUN 9, Creatinine 1.19 H, Estim Creat Clear Calc 54.34, Est GFR (MDRD) Af Amer 62, Est GFR (MDRD) Non-Af 51 L, BUN/Creatinine Ratio 7.6 L, Glucose 217 H, Calcium 8.6, Total Bilirubin 2.30 H, AST 124 H, ALT 82 H, Alkaline Phosphatase 147 H, Total Protein 6.6, Albumin 2.3 L, Globulin 4.3 H, Albumin/Globulin Ratio 0.5 L 06/14/24 06:13: WBC 10.9, RBC 3.05 L, Hgb 9.3 L, Hct 28.0 L, MCV 91.8, MCH 30.5, MCHC 33.2, RDW Std Deviation 55.8 H, RDW Coeff of Katalina 16.6 H, Plt Count 61 L, MPV 10.8, Sodium 138, Potassium 3.8, Chloride 113 H, Carbon Dioxide 21.0, Anion Gap 4 L, BUN 13, Creatinine 0.97, Estim Creat Clear Calc 66.66, Est GFR (MDRD) Af Amer 78, Est GFR (MDRD) Non-Af 64, BUN/Creatinine Ratio 13.4, Glucose 162 H, Calcium 8.4 L, Total Bilirubin 1.40 H, AST 78 H, ALT 54, Alkaline Phosphatase 124 H, Total Protein 5.4 L, Albumin 2.2 L, Globulin 3.2, Albumin/Globulin Ratio 0.7 L
[2024-06-14 08:02] VITALS: BP 112/68; PULSE 64; RESP 16; TEMP 36.9; O2SAT 98
[2024-06-14 08:30] LABS: Ferritin 30 ng/mL (8-252); Iron 66 ug/dL (50-170); Iron Binding Capacity,Total 209 ug/dL (250-450); PERCENT IRON SATURATION 31.6 % (15.0-55.0)
[2024-06-14 08:49] LABS: Vitamin B12 720 pg/mL (211-911)
[2024-06-14] MEDS: Albumin Human 25% (100 mL) 25 GM/100 ML BAG IV ×2 (09:18→10:46)
--- NOTE | 2024-06-14 09:21 | CASEMGMT ---
Social Work- SHELL spoke with Josselin @ [facility] [phone]. Josselin reports that they cannot come see pt for assessment today and they are scheduled through the end of May, so it will likely be June until pt would be assessed. SHELL provided supervisor estimator and drafter number as a secondary contact for pt if DH is unable to reach pt at that time. MIRIAM Clemente
[2024-06-14] MEDS: Venlafaxine XR 37.5 MG Capsule PO (09:23)
[2024-06-14] MEDS: Lactobacillis Acidophilus 1 CAP PO (09:24)
[2024-06-14] MEDS: Gabapentin 100 MG Capsule PO ×2 (09:26→21:25)
[2024-06-14] MEDS: Pantoprazole Sodium 40 MG Tablet PO ×2 (09:26→21:25)
[2024-06-14] MEDS: Topiramate 100 MG Tablet PO (09:26)
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
--- NOTE | 2024-06-14 12:39 | PCM.PN.HOSP ---
Reason for Visit Reason for Visit: Diagnoses Alcoholic cirrhosis of liver with ascites (06/13/24) Hepatic failure, unspecified without coma (06/13/24) Unspecified cirrhosis of liver (06/13/24) Calculus of ureter (06/13/24) Other ascites (06/13/24) Subjective Subjective Saw patient at bedside this morning. Patient had 5.5 L taken off during paracentesis yesterday in the early evening. States her abdomen feels much more comfortable today than yesterday. Her blood pressures were mildly low this morning and she was started on IV albumin for this. She denied any dizziness or lightheadedness. She did report mild lower leg cramping overnight. Otherwise no new concerns today. Objective Data Objective Data Vital Signs: Vital Signs Temp Pulse Resp BP Pulse Ox O2 Del Method 98.5 F 64 16 112/68 98 Room Air 06/14/24 08:02 06/14/24 08:02 06/14/24 08:02 06/14/24 08:02 06/14/24 08:02 06/14/24 08:02 Oxygen Delivery Method Room Air Weight: 77 kg Body Mass Index (BMI) 31.0 Intake & Output: Intake and Output for Last 24 Hours 06/12/24 06/13/24 06/14/24 23:59 23:59 23:59 Intake Total 302.75 / 302.75 500 / 500 Output Total 5550 / 5550 Balance -5247.25 / -5247.25 500 / 500 Lab / Micro Data 06/14/24 06:13 06/14/24 06:13 Labs: Laboratory Results - last 24 hr 06/13/24 14:15: WBC 6.7, RBC 3.75 L, Hgb 11.4 L, Hct 34.9 L, MCV 93.1, MCH 30.4, MCHC 32.7, RDW Std Deviation 57.8 H, RDW Coeff of Katalina 17.2 H, Plt Count 74 L, MPV 10.4, Immature Gran % (Auto) 0.800, Neut % (Auto) 84.5 H, Lymph % (Auto) 11.7 L, [place] % (Auto) 2.0, Eos % (Auto) 0.5, Baso % (Auto) 0.5, Absolute Neuts (auto) 5.6, Absolute Lymphs (auto) 0.78 L, Nucleated RBC % 0, PT 18.7 H, INR 1.6, Sodium 139, Potassium 3.6, Chloride 111 H, Carbon Dioxide 18.0 L, Anion Gap 10, BUN 9, Creatinine 1.19 H, Estim Creat Clear Calc 54.34, Est GFR (MDRD) Af Amer 62, Est GFR (MDRD) Non-Af 51 L, BUN/Creatinine Ratio 7.6 L, Glucose 217 H, Calcium 8.6, Total Bilirubin 2.30 H, AST 124 H, ALT 82 H, Alkaline Phosphatase 147 H, Total Protein 6.6, Albumin 2.3 L, Globulin 4.3 H, Albumin/Globulin Ratio 0.5 L 06/14/24 06:13: WBC 10.9, RBC 3.05 L, Hgb 9.3 L, Hct 28.0 L, MCV 91.8, MCH 30.5, MCHC 33.2, RDW Std Deviation 55.8 H, RDW Coeff of Katalina 16.6 H, Plt Count 61 L, MPV 10.8, Sodium 138, Potassium 3.8, Chloride 113 H, Carbon Dioxide 21.0, Anion Gap 4 L, BUN 13, Creatinine 0.97, Estim Creat Clear Calc 66.66, Est GFR (MDRD) Af Amer 78, Est GFR (MDRD) Non-Af 64, BUN/Creatinine Ratio 13.4, Glucose 162 H, Calcium 8.4 L, Iron 66, TIBC 209 L, Iron Saturation 31.6, Ferritin 30, Total Bilirubin 1.40 H, AST 78 H, ALT 54, Alkaline Phosphatase 124 H, Total Protein 5.4 L, Albumin 2.2 L, Globulin 3.2, Albumin/Globulin Ratio 0.7 L, Vitamin B12 720, Folate 5.80 Social Homelessness:: Unsheltered Physical Exam Const alert, oriented x3 and no apparent distress Constitutional Narrative: Middle-age female, appears somewhat older than stated age, obese, mildly fatigued appearing, otherwise laying comfortably in bed, in no acute distress. Stable. General Appearance: cooperative and comfortable HEENT normocephalic, head/scalp atraumatic, hearing grossly normal bilaterally, nasal mucous membranes and turbinates normal and moist oral mucous membranes Eyes PERRL, EOMs intact bilaterally and conjunctivae normal Neck full ROM Chest inspection of chest normal Resp normal respiratory effort, normal air movement, no use of accessory muscles and clear to auscultation bilaterally Cardio regular rate, regular rhythm, no murmurs and peripheral pulses 2+ throughout GI GI Narrative: Abdomen soft, nondistended and nontender to palpation after paracentesis with normal bowel sounds. Back/Spine normal ROM Extremity normal to inspection, full ROM and no pedal edema Skin no rashes or lesions noted Neuro no focal motor deficits and no sensory deficits noted Speech: speech normal Psych mental status grossly normal Assessment & Plan Assessment/Plan (1) Right ureteral stone: (2) Decompensated cirrhosis: (3) Abdominal ascites: QUALIFIERS: Ascites type: due to alcoholic cirrhosis Qualified Code(s): K70.31 - Alcoholic cirrhosis of liver with ascites PLAN: Plan Patient is a 48-year-old female who presented to [facility] on 06/13/2024 for planned urology procedure. Medicine consulted postoperatively for medical management. 1. Right ureteral stone ? Urology primary. S/p cystoscopy with right ureteroscopic laser lithotripsy of stone and right stent removal on 06/[address] Dawson. Tolerated procedure well, no intraoperative complications. Urinating postoperatively with no pain or discomfort. Further management per urology. 2. Decompensated cirrhosis with recurrent ascites ? Known history of decompensated cirrhosis secondary to chronic alcohol use, chronic hepatitis C and KEYES. Hemodynamically stable on admission with stable lab values but noted to have worsening recurrent ascites with abdominal discomfort. S/p therapeutic paracentesis done by radiology on 06/13 with 5.5 L removed. Had mild hypotension on morning of 06/14, given 2 doses of IV albumin with improvement. Will hold home Lasix and spironolactone for now but should be fine to restart in the next 1 to 2 days. 3. Homelessness ? Case management consulted for assistance with discharge planning. 4. Mild postoperative hypotension with mild creatinine elevation, improved ? Creatinine 1.19 postoperatively, baseline 0.8-0.9. Presumed prerenal etiology. Received small LR fluid bolus and given a dose of IV albumin as well with some improvement in blood pressure. Creatinine improved to baseline on 06/14. Given mild hypotension post paracentesis, holding home diuretics for now but likely can restart in the next 1 to 2 days as noted above. Chronic medical conditions: ? Obesity: BMI 31 on admit. Complicates hospital course, care and prognosis. ? Chronic anemia: Hemoglobin 11.4 on 06/13, dropped to 9.3 on 06/14. Baseline appears to be around 9-10, suspect 9.3 is closer to her baseline. No active signs of bleeding noted. Can follow-up CBC in 5 to 7 days after discharge. Continue home iron supplement. ? Chronic thrombocytopenia: Platelets stable at baseline around 60-70 on admit. ? Anxiety/depression/insomnia/neuropathy: Stable. Continue home BuSpar, desvenlafaxine, gabapentin, topiramate and melatonin at night as needed. ? GERD: Continue home PPI. ? History of alcohol abuse: Encouraged continued cessation. DVT prophylaxis: Lovenox Total clinical time spent by myself addressing the patient's medical issues, reviewing all the data, and collaborating with patient's care team: 35 minutes. Charges/Coding Visit Charges Inpatient E&M: 21915 Subs Hosp L2
[2024-06-14 13:51] VITALS: BP 133/82; PULSE 76; RESP 16; TEMP 37; O2SAT 98
[2024-06-14] MEDS: Ferrous Sulfate 325 MG Tablet PO (13:56)
[2024-06-14] MEDS: Acetaminophen 325 MG Tablet 650 MG PO ×2 (14:01→18:58)
--- NOTE | 2024-06-14 14:30 | CASEMGMT ---
SW made aware pt wants to establish with [facility]. TC to C, spoke with Franck, she states an appt has already been made for pt. Noted it is on dc instructions.
--- NOTE | 2024-06-14 14:30 | CASEMGMT ---
Social Work- SHELL called [facility] to see about availability; SHELL was told to call back at 5pm. SHELL called [facility]; there are no beds available. MIRIAM Clemente
[2024-06-14 21:50] VITALS: BP 107/67; PULSE 67; RESP 16; TEMP 36.6; O2SAT 100
[2024-06-14] MEDS: Ketorolac 30 MG/ML Syringe 15 MG IV (23:01)
[2024-06-14] MEDS: 0.9% Saline Lock 10 ML Syringe IV (23:04)
[2024-06-15] VITALS (7 sets, daily range): BP systolic 104–164; BP diastolic 57–89; PULSE 58–70; RESP 16–20; TEMP 36.1–36.8; O2SAT 98–100
[2024-06-15] MEDS: busPIRone 5 MG Tablet 10 MG PO ×3 (06:44→21:44)
[2024-06-15] MEDS: Gabapentin 100 MG Capsule PO ×2 (09:02→21:44)
[2024-06-15] MEDS: Furosemide 20 MG Tablet PO (09:02)
[2024-06-15] MEDS: Pantoprazole Sodium 40 MG Tablet PO ×2 (09:02→21:44)
[2024-06-15] MEDS: Lactobacillis Acidophilus 1 CAP PO (09:04)
[2024-06-15] MEDS: Venlafaxine XR 37.5 MG Capsule PO (09:04)
[2024-06-15] MEDS: Topiramate 100 MG Tablet PO (09:04)
[2024-06-15] MEDS: Lactulose 20 GM/30 ML UDC 10 GM PO (09:12)
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
--- NOTE | 2024-06-15 09:35 | CASEMGMT ---
Addendum entered by Sravanthi Mcdaniel 06/15/24 09:59: Social Work- SHELL called pt dtr per pt request. SHELL left a voicemail. MIRIAM Clemente Addendum entered by Sravanthi Mcdaniel 06/15/24 09:53: SW called [facility] [phone]- they are able to accept pt. The have several beds available, but it is first come, first serve and they do not hold beds. SHELL called Brock Rueda, hazard mitigation officer [phone] who reports that pt does not have restrictions on leaving the county/area. Pt will need to have transportation to her random drug tests from wherever she is. She has until 4:30PM to complete drug tests they day her color is called. MIRIAM Clemente Original Note: Social Work- SHELL called Krista patient case coordinator Isabel & left a voicemail to collaborate & coordinate. MIRIAM Clemente
[2024-06-15] MEDS: Spironolactone 50 MG Tablet PO ×2 (11:06→21:44)
[2024-06-15] MEDS: Arthritis Pain Compound 60 CLICK TUBE TOPICAL (11:07)
--- NOTE | 2024-06-15 12:00 | PCM.PN.HOSP ---
Reason for Visit Reason for Visit: Diagnoses Alcoholic cirrhosis of liver with ascites (06/13/24) Hepatic failure, unspecified without coma (06/13/24) Unspecified cirrhosis of liver (06/13/24) Calculus of ureter (06/13/24) Other ascites (06/13/24) Objective Data Objective Data Vital Signs: Vital Signs Temp Pulse Resp BP Pulse Ox O2 Del Method 97.9 F 70 20 H 164/89 H 98 Room Air 06/15/24 08:45 06/15/24 08:45 06/15/24 08:45 06/15/24 08:45 06/15/24 08:45 06/15/24 08:45 Oxygen Delivery Method Room Air Weight: 77 kg Body Mass Index (BMI) 31.0 Intake & Output: Intake and Output for Last 24 Hours 06/13/24 06/14/24 06/15/24 23:59 23:59 23:59 Intake Total 302.75 / 302.75 700 / 700 Output Total 5550 / 5550 Balance -5247.25 / -5247.25 700 / 700 Lab / Micro Data 06/14/24 06:13 06/14/24 06:13 Social Homelessness:: Unsheltered
--- NOTE | 2024-06-15 13:27 | PCM.OP.PRO ---
Procedure Report Date of Procedure: 06/15/24 Assessment & Plan Assessment/Plan (1) Abdominal ascites: QUALIFIERS: Ascites type: due to alcoholic cirrhosis Qualified Code(s): K70.31 - Alcoholic cirrhosis of liver with ascites PLAN: PROCEDURE: Ultrasound guided paracentesis ORDERING PROVIDER: Dr. Pittman INDICATION: Female, 48 years old. Abdominal ascites. PROVIDER: JOSHUA Mc TECHNIQUE: The risks, benefits, and alternatives to the procedure were explained to the patient. The specific risks of bleeding, infection, and damage to bowel were detailed and accepted. Witnessed informed consent was obtained. The abdomen was ultrasonographically surveyed. An appropriate pocket of fluid was identified in the left lower quadrant. The skin was prepped with chlorhexidine and sterile field established. 2% lidocaine was used for local anesthetic. Using ultrasound guidance, the peritoneal cavity was accessed with a 5-Cambodian paracentesis needle/catheter system. The trocar was removed. A total of 3650 ml of clear yellow colored fluid was removed from the peritoneal cavity. The catheter was removed and a sterile dressing was applied. The procedure was well tolerated. IMPRESSION: Successful ultrasound guided paracentesis with left lower quadrant access site. Procedures Radiology Radiology US Procedures: 97636 Paracentesis
[2024-06-15] MEDS: Lidocaine 2% (20 ml mdv) 20 ML Vial INFILT (13:28)
--- NOTE | 2024-06-15 14:15 | DCINST_ITS ---
Discharge Instructions Diet Discharge Diet: 6 Cup Fluid Restriction, 2000 mg Sodium Diet and Carb Control Diet Activity Discharge Activity: No Restrictions Dressing / Incision Call your doctor if you observe: Fever of 101 or Higher Follow Up Care Please Follow Up With: Farzad Dawson MD Test Results: Test results from this visit will be discussed in further detail at your follow- up appointment, if applicable. Discharge Plan Admission Admit Date/Time: 06/13/24 09:25 Primary Reason for Your Visit: laser of right kidney stone Attending Provider: Farzad Dawson [facility] [place] [facility] Providers: Reji Pittman; Yohana Nava; Jerome Mckeon Instructions Patient Instructions: JIM RN Paracentesis Dc Discharge Orders/Prescriptions Prescriptions: Continued gabapentin 100 mg capsule 100 mg PO Q12H bacitracin zinc 500 unit/gram Ointment 1 applic topical BID 14 Days Qty: 1 0RF Protocol: *Topical Application Instructions APPLICATION INSTRUCTIONS: affected area Rx Instructions: Apply to chin wound and BL foot wounds. Avoid picking skin. ferrous sulfate [FeroSul] 325 mg (65 mg iron) tablet 325 mg PO DAILY ascorbate calcium (vitamin C) 500 mg tablet 500 mg PO DAILY buspirone 10 mg tablet 10 mg PO 4X/DAY topiramate 50 mg tablet 100 mg PO DAILY desvenlafaxine succinate 50 mg tablet extended release 24 hr 50 mg PO DAILY melatonin 5 mg tablet 5 mg PO QHS PRN (Reason: sleep) spironolactone 50 mg Tablet 50 mg PO BID Qty: 60 1RF furosemide [Lasix] 40 mg tablet 40 mg PO DAILY Qty: 30 0RF Rx Instructions: start on 04/14/24 L. acidophilus/Bifid. animalis 2 billion cell capsule 1 cap PO DAILY 14 Days Qty: 14 0RF albuterol sulfate 90 mcg/actuation HFA aerosol inhaler 1 inh inhalation Q6H PRN (Reason: shortness of breath or wheezing) fluticasone propionate 50 mcg/actuation spray,suspension 1 spray INTRANASAL PRN PRN (Reason: nasal congestion) pantoprazole [Protonix] 40 mg tablet,delayed release (DR/EC) 40 mg PO BID lactulose 10 gram/15 mL solution 10 g PO TID PRN (Reason: stomach upset) phenazopyridine [Pyridium] 200 mg tablet 200 mg PO TID Qty: 6 0RF Referrals / Follow Up: Farzad Dawson MD [Med Staff - Active Staff] - ('s office stated that insurance would not approve a follow up visit. However I did set up a visit with her PCP at [facility].) [facility] [place] [Primary Care Provider] - 06/18/24 9:40 am
--- NOTE | 2024-06-15 14:22 | PCM.PN.HOSP ---
Reason for Visit Reason for Visit: Diagnoses Alcoholic cirrhosis of liver with ascites (06/13/24) Hepatic failure, unspecified without coma (06/13/24) Unspecified cirrhosis of liver (06/13/24) Calculus of ureter (06/13/24) Other ascites (06/13/24) Subjective Subjective Saw patient at bedside this morning. Patient did have worsening abdominal distention today compared to yesterday. Was somewhat surprising how much distention she had today given she had a paracentesis done only 2 days ago. She reported feeling bloated again, similar to how she felt on admission. Was continuing to urinate without issue. No other new concerns today. Objective Data Objective Data Vital Signs: Vital Signs Temp Pulse Resp BP Pulse Ox O2 Del Method 97 F L 64 18 115/57 L 98 Room Air 06/15/24 13:00 06/15/24 13:00 06/15/24 13:00 06/15/24 13:00 06/15/24 08:45 06/15/24 13:00 Oxygen Delivery Method Room Air Weight: 77 kg Body Mass Index (BMI) 31.0 Intake & Output: Intake and Output for Last 24 Hours 06/13/24 06/14/24 06/15/24 23:59 23:59 23:59 Intake Total 302.75 / 302.75 700 / 700 Output Total 5550 / 5550 3650 / 3650 Balance -5247.25 / -5247.25 700 / 700 -3650 / -3650 Lab / Micro Data 06/14/24 06:13 06/14/24 06:13 Social Homelessness:: Unsheltered Physical Exam Const alert, oriented x3 and no apparent distress Constitutional Narrative: Middle-age female, appears somewhat older than stated age, obese, mildly fatigued appearing, otherwise laying comfortably in bed, in no acute distress. Stable. General Appearance: cooperative and comfortable HEENT normocephalic, head/scalp atraumatic, hearing grossly normal bilaterally, nasal mucous membranes and turbinates normal and moist oral mucous membranes Eyes PERRL, EOMs intact bilaterally and conjunctivae normal Neck full ROM Chest inspection of chest normal Resp normal respiratory effort, normal air movement, no use of accessory muscles and clear to auscultation bilaterally Cardio regular rate, regular rhythm, no murmurs and peripheral pulses 2+ throughout GI GI Narrative: Abdomen again hard and distended with fluid wave noted. No tenderness to palpation. Back/Spine normal ROM Extremity normal to inspection, full ROM and no pedal edema Skin no rashes or lesions noted Neuro no focal motor deficits and no sensory deficits noted Speech: speech normal Psych mental status grossly normal Assessment & Plan Assessment/Plan (1) Right ureteral stone: (2) Decompensated cirrhosis: (3) Abdominal ascites: QUALIFIERS: Ascites type: due to alcoholic cirrhosis Qualified Code(s): K70.31 - Alcoholic cirrhosis of liver with ascites PLAN: Plan Patient is a 48-year-old female who presented to [facility] on 06/13/2024 for planned urology procedure. Medicine consulted postoperatively for medical management. 1. Right ureteral stone ? Urology primary. S/p cystoscopy with right ureteroscopic laser lithotripsy of stone and right stent removal on 06/[address] Dawson. Tolerated procedure well, no intraoperative complications. Urinating postoperatively with no pain or discomfort. Further management per urology. 2. Decompensated cirrhosis with recurrent ascites ? Known history of decompensated cirrhosis secondary to chronic alcohol use, chronic hepatitis C and KEYES. Hemodynamically stable on admission with stable lab values but noted to have worsening recurrent ascites with abdominal discomfort. S/p therapeutic paracentesis done by radiology on 06/13 with 5.5 L removed. Had mild hypotension on morning of 06/14, given 2 doses of IV albumin with improvement. Unfortunately had quick reaccumulation of ascites. S/p therapeutic paracentesis on again by radiology on 06/15 with 3.6 L removed. Blood pressure stable post paracentesis. Restarted home Lasix and spironolactone on 06/15. Will follow-up a.m. labs and monitor for signs of recurrent ascites. If no improvement, may need to consider GI consult. She notably has outpatient GI appointment scheduled for 06/22. 3. Homelessness ? Case management following for assistance with discharge planning. 4. Mild postoperative hypotension with mild creatinine elevation, improved ? Creatinine 1.19 postoperatively, baseline 0.8-0.9. Presumed prerenal etiology. Received small LR fluid bolus and given a dose of IV albumin as well with some improvement in blood pressure. Creatinine improved to baseline on 06/14. Home diuretics restarted on 06/15 as noted above. Monitor BMP every other day. Chronic medical conditions: ? Obesity: BMI 31 on admit. Complicates hospital course, care and prognosis. ? Chronic anemia: Hemoglobin 11.4 on 06/13, dropped to 9.3 on 06/14. Baseline appears to be around 9-10, suspect 9.3 is closer to her baseline. No active signs of bleeding noted. Monitor CBC every other day. ? Chronic thrombocytopenia: Platelets stable at baseline around 60-70 on admit. ? Anxiety/depression/insomnia/neuropathy: Stable. Continue home BuSpar, desvenlafaxine, gabapentin, topiramate and melatonin at night as needed. ? GERD: Continue home PPI. ? History of alcohol abuse: Encouraged continued cessation. DVT prophylaxis: Lovenox Total clinical time spent by myself addressing the patient's medical issues, reviewing all the data, and collaborating with patient's care team: 35 minutes. Charges/Coding Visit Charges Inpatient E&M: 56558 Subs Hosp L2
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
[2024-06-15] MEDS: MELATONIN 10 MG TABLET 5 MG PO (21:55)
[2024-06-16 04:00] VITALS: BP 111/76; PULSE 74; RESP 16; TEMP 36.4; O2SAT 100
[2024-06-16 05:07] LABS: Hematocrit 32.5 % (37-47); Hemoglobin 10.7 g/dL (12.0-15.0); Mean Corp Hgb Conc 32.9 g/dL (32-36); Mean Corpuscular Hgb 30.3 pg (27.0-32.0); Mean Corpuscular Volume 92.1 fL (81-99); Mean Platelet Vol. 11.1 fl (6.2-12.0); POSITIVE COUNT YES; Platelet Count 64 K/mm3 (150-450); RBC Distribution Width CV 17.2 % (11.6-14.6); RBC Distribution Width SD 56.8 fl (35.1-43.9); Red Blood Count 3.53 M/mm3 (4.2-5.4); White Blood Count 6.8 K/mm3 (4.4-11.0)
[2024-06-16 05:40] LABS: International Normalized Ratio 1.7; Prothrombin Time (Protime)PT. 19.9 SECONDS (11.7-14.9)
[2024-06-16 05:43] LABS: ALB/GLOB Ratio 0.8 RATIO (0.9-2.4); AST(SGOT) 75 U/L (15-37); Alanine Aminotransfer ALT/SGPT 57 U/L (13-56); Albumin, Serum 2.6 g/dL (3.2-5.0); Alkaline Phosphatase 127 U/L (45-117); Anion Gap 6 (5-15); BUN 9 mg/dL (7-18); BUN/Creat Ratio 9.7 RATIO (10-20); Calcium,Total 8.6 mg/dL (8.5-10.1); Chloride 112 mmol/L (98-107); Creatinine, Serum 0.93 mg/dL (0.55-1.02); EST Glomerular Filtration Rate 68 mL/min (>60); Est Glom Filt Rate - Afr Amer 82 mL/min (>60); Estimated Creatinine Clearance 69.53 ml/min; Globulin 3.4 g/dL (2.2-4.2); Glucose 117 mg/dL (74-106); Potassium 3.3 mmol/L (3.5-5.1); Sodium Level 140 mmol/L (136-145)
[2024-06-16] MEDS: Lactulose 20 GM/30 ML UDC 10 GM PO (06:19)
[2024-06-16] MEDS: busPIRone 5 MG Tablet 10 MG PO ×3 (06:19→21:39)
[2024-06-16 09:04] VITALS: BP 107/67; PULSE 62; RESP 18; TEMP 36.6; O2SAT 99
[2024-06-16] MEDS: Lactobacillis Acidophilus 1 CAP PO (09:09)
[2024-06-16] MEDS: Topiramate 100 MG Tablet PO (09:10)
[2024-06-16] MEDS: Furosemide 40 MG Tablet PO (09:10)
[2024-06-16] MEDS: Spironolactone 50 MG Tablet PO ×2 (09:10→21:39)
[2024-06-16] MEDS: Venlafaxine XR 37.5 MG Capsule PO (09:10)
[2024-06-16] MEDS: Pantoprazole Sodium 40 MG Tablet PO ×2 (09:10→21:38)
[2024-06-16] MEDS: Gabapentin 100 MG Capsule PO ×2 (09:10→21:35)
[2024-06-16] MEDS: BACITRACIN 15 GM Tube 1 APPLIC TOPICAL (11:31)
[2024-06-16] MEDS: Ferrous Sulfate 325 MG Tablet PO (11:32)
--- NOTE | 2024-06-16 11:48 | CASEMGMT ---
Social Work As per physician, pt will be here through the weekend. Pt asked to speak w/SW. SW met w/pt, she is aware here through the weekend. Pt states her phone cracked and she ordered a new one to be delivered here and wanted to know if this was okay. She then said it is to be delivered to [address] [facility] Tuesday, and realized that this is actually PSYCHIATRIC. Pt states she cannot change the address. SW suggested she call [facility] Tuesday, offered to give her the number. Pt states she has the number, as she used to go to the doctor there, will call Tuesday. Pt then went on to talk about her health and the difficulties she has had. She said she is finally willing to accept help and appreciates the help of the SWs here. SW offered support to pt. SW will continue to follow. ANDREEA Dueñas
--- NOTE | 2024-06-16 12:08 | PCM.PN.HOSP ---
Reason for Visit Reason for Visit: Diagnoses Alcoholic cirrhosis of liver with ascites (06/15/24) Hepatic failure, unspecified without coma (06/15/24) Unspecified cirrhosis of liver (06/15/24) Calculus of ureter (06/15/24) Other ascites (06/15/24) Subjective Subjective Saw patient at bedside this morning. Patient appeared similar today to previous days, mildly fatigued appearing but otherwise laying comfortably in bed. Her abdomen was slightly more full today compared to post paracentesis yesterday. She did report feeling like her flank regions were bulging. She reported good urination back on the diuretics. No other new concerns today. Objective Data Objective Data Vital Signs: Vital Signs Temp Pulse Resp BP Pulse Ox O2 Del Method 97.8 F 62 18 107/67 99 Room Air 06/16/24 09:04 06/16/24 09:04 06/16/24 09:04 06/16/24 09:04 06/16/24 09:04 06/16/24 09:15 Oxygen Delivery Method Room Air Weight: 77 kg Body Mass Index (BMI) 31.0 Intake & Output: Intake and Output for Last 24 Hours 06/14/24 06/15/24 06/16/24 23:59 23:59 23:59 Intake Total 700 / 700 300 / 960 1100 / 1100 Output Total 3650 / 3650 Balance 700 / 700 -3350 / -2690 1100 / 1100 Lab / Micro Data 06/16/24 04:21 06/16/24 04:21 Labs: Laboratory Results - last 24 hr 06/16/24 04:21: WBC 6.8, RBC 3.53 L, Hgb 10.7 L, Hct 32.5 L, MCV 92.1, MCH 30.3, MCHC 32.9, RDW Std Deviation 56.8 H, RDW Coeff of Katalina 17.2 H, Plt Count 64 L, MPV 11.1, PT 19.9 H, INR 1.7, Sodium 140, Potassium 3.3 L, Chloride 112 H, Carbon Dioxide 22.0, Anion Gap 6, BUN 9, Creatinine 0.93, Estim Creat Clear Calc 69.53, Est GFR (MDRD) Af Amer 82, Est GFR (MDRD) Non-Af 68, BUN/Creatinine Ratio 9.7 L, Glucose 117 H, Calcium 8.6, Total Bilirubin 1.60 H, AST 75 H, ALT 57 H, Alkaline Phosphatase 127 H, Total Protein 6.0 L, Albumin 2.6 L, Globulin 3.4, Albumin/Globulin Ratio 0.8 L Social Homelessness:: Unsheltered Physical Exam Const alert, oriented x3 and no apparent distress Constitutional Narrative: Middle-age female, appears somewhat older than stated age, obese, mildly fatigued appearing, otherwise laying comfortably in bed, in no acute distress. Stable. General Appearance: cooperative and comfortable HEENT normocephalic, head/scalp atraumatic, hearing grossly normal bilaterally, nasal mucous membranes and turbinates normal and moist oral mucous membranes Eyes PERRL, EOMs intact bilaterally and conjunctivae normal Neck full ROM Chest inspection of chest normal Resp normal respiratory effort, normal air movement, no use of accessory muscles and clear to auscultation bilaterally Cardio regular rate, regular rhythm, no murmurs and peripheral pulses 2+ throughout GI GI Narrative: Had paracentesis done on 06/15. Abdomen mildly distended today but soft and nontender to palpation. No fluid wave noted. Back/Spine normal ROM Extremity normal to inspection, full ROM and no pedal edema Skin no rashes or lesions noted Neuro no focal motor deficits and no sensory deficits noted Speech: speech normal Psych mental status grossly normal Assessment & Plan Assessment/Plan (1) Right ureteral stone: (2) Decompensated cirrhosis: (3) Abdominal ascites: QUALIFIERS: Ascites type: due to alcoholic cirrhosis Qualified Code(s): K70.31 - Alcoholic cirrhosis of liver with ascites PLAN: Plan Patient is a 48-year-old female who presented to [facility] on 06[facility]13[facility]24 for planned urology procedure. Medicine consulted postoperatively for medical management. 1. Right ureteral stone ? Urology primary. S/p cystoscopy with right ureteroscopic laser lithotripsy of stone and right stent removal on 06/[address] Dawson. Tolerated procedure well, no intraoperative complications. Urinating postoperatively with no pain or discomfort. Further management per urology. 2. Decompensated cirrhosis with recurrent ascites ? Known history of decompensated cirrhosis secondary to chronic alcohol use, chronic hepatitis C and KEYES. Hemodynamically stable on admission with stable lab values but noted to have worsening recurrent ascites with abdominal discomfort. S/p therapeutic paracentesis done by radiology on 06/13 with 5.5 L removed. Had mild hypotension on morning of 06/14, given 2 doses of IV albumin with improvement. Unfortunately had quick reaccumulation of ascites. S/p therapeutic paracentesis on again by radiology on 06/15 with 3.6 L removed. Blood pressure stable post paracentesis. Restarted home Lasix and spironolactone on 06/15. Given her recurrent ascites, will monitor patient through the weekend and recheck ultrasound on Tuesday. If patient requires another paracentesis then, will need to consult GI for further recommendations. 3. Homelessness ? Case management following for assistance with discharge planning. 4. Mild postoperative hypotension with mild creatinine elevation, improved ? Creatinine 1.19 postoperatively, baseline 0.8-0.9. Presumed prerenal etiology. Received small LR fluid bolus and given a dose of IV albumin as well with some improvement in blood pressure. Creatinine improved to baseline on 06/14. Home diuretics restarted on 06/15 as noted above. Monitor daily labs. Chronic medical conditions: ? Obesity: BMI 31 on admit. Complicates hospital course, care and prognosis. ? Chronic anemia: Hemoglobin 11.4 on 06/13, dropped to 9.3 on 06/14. Baseline appears to be around 9-10, suspect 9.3 is closer to her baseline. No active signs of bleeding noted. Monitor CBC every other day. ? Chronic thrombocytopenia: Platelets stable at baseline around 60-70 on admit. ? Anxiety/depression/insomnia/neuropathy: Stable. Continue home BuSpar, desvenlafaxine, gabapentin, topiramate and melatonin at night as needed. ? GERD: Continue home PPI. ? History of alcohol abuse: Encouraged continued cessation. DVT prophylaxis: Lovenox Total clinical time spent by myself addressing the patient's medical issues, reviewing all the data, and collaborating with patient's care team: 35 minutes. Charges/Coding Visit Charges Inpatient E&M: 77297 Subs Hosp L2
[2024-06-16] MEDS: Acetaminophen 325 MG Tablet 650 MG PO (14:04)
[2024-06-16 14:05] VITALS: BP 115/79; PULSE 64; RESP 18; TEMP 36.9; O2SAT 98
[2024-06-16] MEDS: Dicyclomine 10 MG Capsule PO (16:50)
[2024-06-16 21:32] VITALS: BP 113/69; PULSE 57; RESP 15; TEMP 37; O2SAT 100
[2024-06-16] MEDS: MELATONIN 10 MG TABLET 5 MG PO (21:41)
[2024-06-16] MEDS: 0.9% Saline Lock 10 ML Syringe IV (21:42)
[2024-06-17 03:30] VITALS: BP 106/69; PULSE 59; RESP 15; TEMP 36.6; O2SAT 100
[2024-06-17] MEDS: busPIRone 5 MG Tablet 10 MG PO ×3 (05:22→21:26)
[2024-06-17 08:14] LABS: Hematocrit 34.4 % (37-47); Hemoglobin 11.3 g/dL (12.0-15.0); Mean Corp Hgb Conc 32.8 g/dL (32-36); Mean Corpuscular Hgb 30.4 pg (27.0-32.0); Mean Corpuscular Volume 92.5 fL (81-99); Mean Platelet Vol. 10.6 fl (6.2-12.0); POSITIVE COUNT YES; Platelet Count 72 K/mm3 (150-450); RBC Distribution Width CV 17.2 % (11.6-14.6); RBC Distribution Width SD 57.7 fl (35.1-43.9); Red Blood Count 3.72 M/mm3 (4.2-5.4); White Blood Count 7.2 K/mm3 (4.4-11.0)
[2024-06-17 08:43] LABS: ALB/GLOB Ratio 0.7 RATIO (0.9-2.4); AST(SGOT) 76 U/L (15-37); Alanine Aminotransfer ALT/SGPT 56 U/L (13-56); Albumin, Serum 2.6 g/dL (3.2-5.0); Alkaline Phosphatase 134 U/L (45-117); Anion Gap 3 (5-15); BUN 7 mg/dL (7-18); BUN/Creat Ratio 8.5 RATIO (10-20); Calcium,Total 8.6 mg/dL (8.5-10.1); Chloride 114 mmol/L (98-107); Creatinine, Serum 0.82 mg/dL (0.55-1.02); EST Glomerular Filtration Rate 78 mL/min (>60); Est Glom Filt Rate - Afr Amer 94 mL/min (>60); Estimated Creatinine Clearance 78.86 ml/min; Globulin 3.6 g/dL (2.2-4.2); Glucose 112 mg/dL (74-106); Potassium 3.7 mmol/L (3.5-5.1); Protein, Total 6.2 g/dL (6.4-8.2); Sodium Level 140 mmol/L (136-145)
[2024-06-17 09:30] VITALS: BP 112/58; PULSE 55; RESP 18; TEMP 36.4; O2SAT 99
[2024-06-17] MEDS: Acetaminophen 325 MG Tablet 650 MG PO (09:34)
[2024-06-17] MEDS: Lactobacillis Acidophilus 1 CAP PO (09:34)
[2024-06-17] MEDS: Lactulose 20 GM/30 ML UDC 10 GM PO (09:34)
[2024-06-17] MEDS: Venlafaxine XR 37.5 MG Capsule PO (09:34)
[2024-06-17] MEDS: Furosemide 40 MG Tablet PO (09:35)
[2024-06-17] MEDS: Spironolactone 50 MG Tablet PO ×2 (09:35→21:33)
[2024-06-17] MEDS: Topiramate 100 MG Tablet PO (09:35)
[2024-06-17] MEDS: Pantoprazole Sodium 40 MG Tablet PO ×2 (09:35→21:26)
[2024-06-17] MEDS: Gabapentin 100 MG Capsule PO ×2 (09:37→21:34)
--- NOTE | 2024-06-17 10:22 | PCM.PN.HOSP ---
Reason for Visit Reason for Visit: Diagnoses Alcoholic cirrhosis of liver with ascites (06/15/24) Hepatic failure, unspecified without coma (06/15/24) Unspecified cirrhosis of liver (06/15/24) Calculus of ureter (06/15/24) Other ascites (06/15/24) Subjective Subjective Saw patient at bedside this morning. Patient's abdomen did appear slightly more bloated today than yesterday. She reports ongoing mild abdominal discomfort and sensation of bloating and reports minimal appetite due to this. No pain or tenderness to palpation in her abdomen. No fevers or chills. No other new concerns today. Objective Data Objective Data Vital Signs: Vital Signs Temp Pulse Resp BP Pulse Ox O2 Del Method 97.6 F L 55 L 18 112/58 L 99 Room Air 06/17/24 09:30 06/17/24 09:30 06/17/24 09:30 06/17/24 09:30 06/17/24 09:30 06/17/24 09:30 Oxygen Delivery Method Room Air Weight: 77 kg Body Mass Index (BMI) 31.0 Intake & Output: Intake and Output for Last 24 Hours 06/15/24 06/16/24 06/17/24 23:59 23:59 23:59 Intake Total 300 / 960 1300 / 1300 400 / 400 Output Total 3650 / 3650 300 / 300 Balance -3350 / -2690 1000 / 1000 400 / 400 Lab / Micro Data 06/17/24 07:11 06/17/24 07:11 Labs: Laboratory Results - last 24 hr 06/17/24 07:11: WBC 7.2, RBC 3.72 L, Hgb 11.3 L, Hct 34.4 L, MCV 92.5, MCH 30.4, MCHC 32.8, RDW Std Deviation 57.7 H, RDW Coeff of Katalina 17.2 H, Plt Count 72 L, MPV 10.6, Sodium 140, Potassium 3.7, Chloride 114 H, Carbon Dioxide 23.0, Anion Gap 3 L, BUN 7, Creatinine 0.82, Estim Creat Clear Calc 78.86, Est GFR (MDRD) Af Amer 94, Est GFR (MDRD) Non-Af 78, BUN/Creatinine Ratio 8.5 L, Glucose 112 H, Calcium 8.6, Total Bilirubin 2.00 H, AST 76 H, ALT 56, Alkaline Phosphatase 134 H, Total Protein 6.2 L, Albumin 2.6 L, Globulin 3.6, Albumin/Globulin Ratio 0.7 L Social Homelessness:: Unsheltered Physical Exam Const alert, oriented x3 and no apparent distress Constitutional Narrative: Middle-age female, appears somewhat older than stated age, obese, mildly fatigued appearing, otherwise laying comfortably in bed, in no acute distress. Stable. General Appearance: cooperative and comfortable HEENT normocephalic, head/scalp atraumatic, hearing grossly normal bilaterally, nasal mucous membranes and turbinates normal and moist oral mucous membranes Eyes PERRL, EOMs intact bilaterally and conjunctivae normal Neck full ROM Chest inspection of chest normal Resp normal respiratory effort, normal air movement, no use of accessory muscles and clear to auscultation bilaterally Cardio regular rate, regular rhythm, no murmurs and peripheral pulses 2+ throughout GI GI Narrative: Had paracentesis done on 06/15. Abdomen mildly distended but harder today than yesterday with mild fluid wave noted. No tenderness to palpation. Back/Spine normal ROM Extremity normal to inspection, full ROM and no pedal edema Skin no rashes or lesions noted Neuro no focal motor deficits and no sensory deficits noted Speech: speech normal Psych mental status grossly normal Assessment & Plan Assessment/Plan (1) Right ureteral stone: (2) Decompensated cirrhosis: (3) Abdominal ascites: QUALIFIERS: Ascites type: due to alcoholic cirrhosis Qualified Code(s): K70.31 - Alcoholic cirrhosis of liver with ascites PLAN: Plan Patient is a 48-year-old female who presented to [facility] on 06/13/2024 for planned urology procedure. Medicine consulted postoperatively for medical management. 1. Right ureteral stone ? Urology primary. S/p cystoscopy with right ureteroscopic laser lithotripsy of stone and right stent removal on 06/[address] Dawson. Tolerated procedure well, no intraoperative complications. Urinating postoperatively with no pain or discomfort. Further management per urology. 2. Decompensated cirrhosis with recurrent ascites ? Known history of decompensated cirrhosis secondary to chronic alcohol use, chronic hepatitis C and KEYES. Hemodynamically stable on admission with stable lab values but noted to have worsening recurrent ascites with abdominal discomfort. S/p therapeutic paracentesis done by radiology on 06/13 with 5.5 L removed. Had mild hypotension on morning of 06/14, given 2 doses of IV albumin with improvement. Unfortunately had quick reaccumulation of ascites. S/p therapeutic paracentesis on again by radiology on 06/15 with 3.6 L of straw-colored fluid removed. Blood pressure stable post paracentesis. Unfortunately did not have labs drawn with either paracentesis given high suspicion that fluid was due to cirrhosis. Restarted home Lasix and spironolactone on 06/15. Exam on 06/17 with worsening abdominal distention and mild fluid wave noted. Will plan for paracentesis tomorrow and have paracentesis labs drawn with this. Will plan to have GI see her tomorrow as well to discuss plan with her rapidly reaccumulating ascites. 3. Homelessness ? Case management following for assistance with discharge planning. 4. Mild postoperative hypotension with mild creatinine elevation, improved ? Creatinine 1.19 postoperatively, baseline 0.8-0.9. Presumed prerenal etiology. Received small LR fluid bolus and given a dose of IV albumin as well with some improvement in blood pressure. Creatinine improved to baseline on 06/14. Home diuretics restarted on 06/15 as noted above. Monitor daily labs. Chronic medical conditions: ? Obesity: BMI 31 on admit. Complicates hospital course, care and prognosis. ? Chronic anemia: Hemoglobin remaining stable at baseline around 10-11 during hospitalization. ? Chronic thrombocytopenia: Platelets stable at baseline around 60-70 during hospitalization. ? Anxiety/depression/insomnia/neuropathy: Stable. Continue home BuSpar, desvenlafaxine, gabapentin, topiramate and melatonin at night as needed. ? GERD: Continue home PPI. ? History of alcohol abuse: Encouraged continued cessation. DVT prophylaxis: Lovenox Total clinical time spent by myself addressing the patient's medical issues, reviewing all the data, and collaborating with patient's care team: 35 minutes. Charges/Coding Visit Charges Inpatient E&M: 35566 Subs Hosp L2
[2024-06-17 14:12] VITALS: BP 104/58; PULSE 59; RESP 18; TEMP 36.2; O2SAT 97
[2024-06-17 21:14] VITALS: BP 105/68; PULSE 57; RESP 14; TEMP 36.4; O2SAT 97
[2024-06-17] MEDS: 0.9% Saline Lock 10 ML Syringe IV (21:22)
[2024-06-17] MEDS: MELATONIN 10 MG TABLET 5 MG PO (21:34)
[2024-06-18 00:14] VITALS: BP 99/64; PULSE 67; RESP 13; TEMP 36.5; O2SAT 97
[2024-06-18 05:25] VITALS: BP 118/65; PULSE 60; RESP 16; TEMP 36.7; O2SAT 97
[2024-06-18] MEDS: busPIRone 5 MG Tablet 10 MG PO ×3 (05:33→21:34)
[2024-06-18] MEDS: Lactulose 20 GM/30 ML UDC 10 GM PO ×2 (05:39→14:26)
--- NOTE | 2024-06-18 06:00 | US_ITS ---
STUDY: ABDOMINAL ULTRASOUND -ascites survey. REASON FOR VISIT: Female, 48 years old recurrent ascites -- diagnostic and therapeutic TECHNIQUE: Ultrasound evaluation of the 4 quadrants was performed with real-time and static astorga-scale imaging. TECHNICAL QUALITY: Adequate. COMPARISON: None. FINDINGS: Not enough fluid for safe paracentesis. US/Abdomen Limited IMPRESSION: Not enough fluid for a safe paracentesis. Electronically Signed: Isidro Burnett MD at 14:18 EDT ,
[2024-06-18 07:41] VITALS: BP 98/71; PULSE 58; RESP 18; TEMP 36.2; O2SAT 98
--- NOTE | 2024-06-18 08:24 | PN.HOSP_ITS ---
Reason for Visit Reason for Visit: Diagnoses Alcoholic cirrhosis of liver with ascites (06/15/24) Hepatic failure, unspecified without coma (06/15/24) Unspecified cirrhosis of liver (06/15/24) Calculus of ureter (06/15/24) Other ascites (06/15/24) Objective Data Objective Data Vital Signs: Vital Signs Temp Pulse Resp BP Pulse Ox O2 Del Method 36.2 C L 58 L 18 98/71 98 Room Air 06/18/24 07:41 06/18/24 07:41 06/18/24 07:41 06/18/24 07:41 06/18/24 07:41 06/18/24 07:41 Oxygen Delivery Method Room Air Weight: 77 kg Body Mass Index (BMI) 31.0 Intake & Output: Intake and Output for Last 24 Hours 06/16/24 06/17/24 06/18/24 23:59 23:59 23:59 Intake Total 1300 / 1300 900 / 900 Output Total 300 / 300 Balance 1000 / 1000 900 / 900 Lab / Micro Data 06/17/24 07:11 06/17/24 07:11 Labs: Laboratory Results - last 24 hr 06/17/24 07:11: Sodium 140, Potassium 3.7, Chloride 114 H, Carbon Dioxide 23.0, Anion Gap 3 L, BUN 7, Creatinine 0.82, Estim Creat Clear Calc 78.86, Est GFR (MDRD) Af Amer 94, Est GFR (MDRD) Non-Af 78, BUN/Creatinine Ratio 8.5 L, Glucose 112 H, Calcium 8.6, Total Bilirubin 2.00 H, AST 76 H, ALT 56, Alkaline Phosphatase 134 H, Total Protein 6.2 L, Albumin 2.6 L, Globulin 3.6, A lbumin/Globulin Ratio 0.7 L Social Homelessness:: Unsheltered Assessment & Plan Assessment/Plan (1) Right ureteral stone: (2) Decompensated cirrhosis: (3) Abdominal ascites: QUALIFIERS: Ascites type: due to alcoholic cirrhosis Qualified Code(s): K70.31 - Alcoholic cirrhosis of liver with ascites PLAN: Plan Right ureteral stone * S/p cystoscopy with right ureteroscopic laser lithotripsy of stone and right stent removal on 06/[address] Dawson. Tolerated procedure well, no intraoperative complications. Urinating postoperatively with no pain or discomfort. Management per urology. Ascites * Suspected to decompensated liver disease * Throacenteses on 06/13 and . Removal of 5.5 and 3.6 liters respectively. Repeat thora ordered. * Continue furosemide and spironolactone. Up titration limited given low normal BP * Fluid and sodium restricted diet. * GI consult. Homelessness * complicates disposition * Case mgmt input appreciated. Chronic medical conditions: * Obesity class I: BMI 31 on admit. Complicates hospital course, care and prognosis. * Chronic anemia: Hemoglobin remaining stable at baseline around 10-11 during hospitalization. * Chronic thrombocytopenia: Platelets stable at baseline around 60-70 during hospitalization. * Anxiety/depression/insomnia/neuropathy: Stable. Continue home BuSpar, desvenlafaxine, gabapentin, topiramate and melatonin at night as needed. * GERD: Continue home PPI. * History of alcohol abuse: Encouraged continued cessation. VTE prophylaxis: enoxaparin
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
[2024-06-18] MEDS: Gabapentin 100 MG Capsule PO ×2 (09:55→21:38)
[2024-06-18] MEDS: Pantoprazole Sodium 40 MG Tablet PO ×2 (09:55→21:34)
[2024-06-18] MEDS: Furosemide 40 MG Tablet PO (09:55)
[2024-06-18] MEDS: Venlafaxine XR 37.5 MG Capsule PO (09:55)
[2024-06-18] MEDS: Acetaminophen 325 MG Tablet 650 MG PO (09:55)
[2024-06-18] MEDS: Spironolactone 50 MG Tablet PO ×2 (09:55→21:34)
[2024-06-18] MEDS: Lactobacillis Acidophilus 1 CAP PO (09:55)
[2024-06-18] MEDS: Topiramate 100 MG Tablet PO (09:56)
[2024-06-18] MEDS: Ferrous Sulfate 325 MG Tablet PO (11:57)
--- NOTE | 2024-06-18 12:44 | CASEMGMT ---
Addendum entered by Sravanthi Mcdaniel 06/18/24 16:31: Social Work- SW f/u with pt. Pt reports that she called & [facility] does not have any availability. Pt reports that she called & [facility] does not have any availability. Pt reports that she called & [facility] does have availability, but they do not hold beds. Pt does not have d/c in, so pt is unable to make plans. 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 Pt had spoken with Nikki earlier to set up p/u. [facility] delivered phone to pt. Pt would like to learn how to put appointments in her phone. SW will continue to follow for d/c planning and support. 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 Pt states that she remains in pain; pt reports that she has been in pain all weekend. Pt reports she realizes that she is a former drug user and that it could seem that she is med seeking. Pt removed her sheet so SW could see her very distended stomach. Pt reports that she knows something is wrong. Pt states that she didn't understand the dr this morning when explaining why she was not able to have fluid removed. SW to request physician speak to pt again at convenience. SW provided number for [facility], as when SW called, the director reported that pt needs to call. Pt reports that she will call after lunch. Pt reports that he cell phone can be picked up after 3 today at [facility]; pt reports dtr is unable to mixing picker tender & wondered if someone could assist. SW checked with [facility] who stated if pt hadn't d/c, he could assist. MIRIAM Clemente
--- NOTE | 2024-06-18 12:50 | RAD_ITS ---
STUDY: X-RAY - ABDOMEN/PELVIS REASON FOR EXAM: Female, 48 years old. abd pain TECHNIQUE: Frontal views COMPARISON: None. FINDINGS: Normal visualized lung bases. There is an unremarkable bowel gas pattern. There is no demonstrated free abdominal air. The visualized liver, spleen and kidneys are grossly normal in size and morphology. Normal soft tissue structures. Normal visualized osseous structures. RAD/Abdomen Single View (Portable) IMPRESSION: Normal x-ray examination of the abdomen and pelvis. Electronically Signed: Jamaal Reeves DO at 17:30 EDT ,
[2024-06-18 14:00] VITALS: BP 115/69; PULSE 63; RESP 18; TEMP 36.6; O2SAT 100
--- NOTE | 2024-06-18 19:02 | CON.PCM.GI_ITS ---
HPI Consult Data Date of Consult: 06/18/24 HPI Narrative Reason for Consultation: Abdominal pain HPI Narrative: CAROLINA HIGHTOWER, is a 48 F who presented to [facility] on 06/13/2024 for planned urology procedure. Patient had known right renal calculi and had cystoscopy with right ureteroscopic laser lithotripsy of stone and right stent removal done by Dr. Dawson today. Patient tolerated procedure without issue. She had mild postoperative hypotension but was otherwise feeling well. It appears she was primarily admitted for ongoing management of her known decompensated cirrhosis with worsening ascites and for social issues as she is homeless. I saw patient at the bedside this afternoon. Patient was laying comfortably in bed, in no acute distress. She had urinated since the procedure and had no pain or difficulty with urination. She does report abdominal bloating that she attributes to recurrent ascites and states it has been sometime since her last paracentesis. She denies any fevers or chills. Denies any abdominal tenderness to palpation. She denies any other acute concerns at this time. On chart review, patient was recently hospitalized here from 05/30-05/31 for abdominal pain and concern for SBP. She had paracentesis done in the ED on 05/30 and was studies were negative for SBP. However, there was concern for possible colitis versus UTI and patient was empirically treated with 7-day course of antibiotics total. As an outpatient she is on 50 mg of spironolactone twice a day and Lasix 40 mg once a day. That is being held because of some hypotension. She recently underwent large-volume paracentesis 4 days ago of 5 L of serosanguineous fluid. She went down for repeat paracentesis today but was not enough fluid. She does complain of a lot of bloating along with mid epigastric abdominal pain and she has a lot of pain with eating and has not been able to eat much. She has not been following up with frequency into the GI clinic. [facility] Medical History (Updated 06/16/24 @ 00:02 by Background Daemon) Abdominal ascites Redness of skin Blackout Urolithiasis Hydronephrosis with renal calculous obstruction Hydroureteronephrosis Bipolar disorder Anxiety Depression Ascites of liver Complete edentulism, class III Alcohol abuse Chronic pain GERD (gastroesophageal reflux disease) Restless legs Iron deficiency anemia Hyperbilirubinemia Substance abuse Marijuana use MRSA infection Low iron Anemia Hepatitis Migraine headache Seizures History of diverticulitis COPD (chronic obstructive pulmonary disease) Smoker Obesity Thrombocytopenia Polysubstance abuse Cirrhosis of liver Anxiety and depression Hepatitis C, chronic Home Medications ?Medication ?Instructions ?Recorded ?Last Taken ?Type gabapentin 100 mg capsule 100 mg PO Q12H nerve pain 07/20/23 06/12/24 History ascorbate calcium (vitamin C) 500 500 mg PO DAILY vitamin 12/04/23 06/12/24 History mg tablet ferrous sulfate 325 mg (65 mg 325 mg PO DAILY supplement 12/04/23 06/12/24 History iron) tablet (FeroSul) buspirone 10 mg tablet 10 mg PO 4X/DAY ANXIETY 04/11/24 06/12/24 History desvenlafaxine succinate 50 mg 50 mg PO DAILY 04/11/24 06/12/24 History tablet,extended release 24 hr melatonin 5 mg tablet 5 mg PO QHS PRN sleep 04/11/24 06/12/24 History topiramate 50 mg tablet 100 mg PO DAILY 04/11/24 06/12/24 History furosemide 40 mg tablet (Lasix) 40 mg PO DAILY DIURETIC #30 tabs 04/13/24 06/12/24 Rx spironolactone 50 mg tablet 50 mg PO BID #60 tabs 04/13/24 06/12/24 Rx bacitracin zinc 500 unit/gram 1 applic topical BID 14 days #1 05/15/24 06/12/24 Rx topical ointment tube Lactobacillus 1 cap PO DAILY 2 weeks #14 caps 06/01/24 Unknown Rx acidophilus-Bifidobac.animalis 2 billion cell capsule albuterol sulfate 90 mcg/actuation 1 inh inhalation Q6H PRN shortness 06/06/24 Unknown History aerosol inhaler of breath or wheezing fluticasone propionate 50 1 spray intranasal PRN PRN nasal 06/06/24 06/12/24 History mcg/actuation nasal congestion spray,suspension lactulose 10 gram/15 mL oral 10 g PO TID PRN stomach upset 06/06/24 06/12/24 History solution pantoprazole 40 mg tablet,delayed 40 mg PO BID 06/06/24 06/12/24 History release (Protonix) phenazopyridine 200 mg tablet 200 mg PO TID 6 doses #6 tabs 06/07/24 06/12/24 Rx (Pyridium) Allergy/AdvReac Type Severity Reaction Status Date / Time bupropion HCl (From Allergy SEIZURES Verified 06/13/24 09:30 Wellbutrin) codeine Allergy Rash Verified 06/13/24 09:30 Family History Mother Diabetes Father Cancer HX Throat CA. Surgical History History of abdominal paracentesis H/O tubal ligation History of liver biopsy Social History adopted: No household members: family housing: other number of children: 3 current occupational status: unemployed pets and animals: Yes history of recent travel: No sexually active: Yes Smoking Status: Current every day smoker tobacco type: cigarettes second hand exposure: Yes alcohol intake: current alcohol intake frequency: a few times a month substance use type: former substance user Date of last use: heroin, marijuana, heroin and methamphetamine seatbelt use: always do you feel safe at home: Yes Homelessness:: Unsheltered ROS Constitutional Constitutional: Denies chills, fatigue, fever(s) or weakness Eyes Eyes: Denies change in vision Cardiovascular Cardiovascular: Denies chest pain Respiratory/Chest Respiratory/Chest: Denies shortness of breath at rest Gastrointestinal Gastrointestinal: Reports constipation, nausea and other Details: Abdominal bloating noted. ; Denies abdominal pain, diarrhea or vomiting Genitourinary Genitourinary: Denies dysuria Musculoskeletal Musculoskeletal: Denies arthralgias or myalgias Neurologic Neurologic: Denies dizziness, focal weakness or headache(s) Physical Exam Const alert and no apparent distress HEENT head/scalp atraumatic and moist oral mucous membranes Resp normal respiratory effort, no retractions, no use of accessory muscles and clear to auscultation bilaterally Cardio regular rate, regular rhythm, S1 normal heart sound and S2 normal heart sound GI GI Narrative: Distended. Hypoactive bowel sounds. Neuro Neuro Narrative: Appears older than stated age. Sensorium / Orientation: awake and alert Lab / Micro Data 06/17/24 07:11 06/17/24 07:11 Imaging Radiology Impression Abdomen Ultrasound 06/18/24 06:00 IMPRESSION: Not enough fluid for a safe paracentesis. Electronically Signed: Isidro Burnett MD at 14:18 EDT , KUB X-Ray 06/18/24 12:50 IMPRESSION: Normal x-ray examination of the abdomen and pelvis. Electronically Signed: Jamaal Reeves DO at 17:30 EDT , Assessment & Plan Assessment/Plan (1) Right ureteral stone: (2) Decompensated cirrhosis: (3) Abdominal ascites: QUALIFIERS: Ascites type: due to alcoholic cirrhosis Qualified Code(s): K70.31 - Alcoholic cirrhosis of liver with ascites PLAN: Plan Patient is a 48-year-old female with end-stage liver disease secondary to chronic hepatitis C/ alcoholic cirrhosis complicated by recurrent refractory ascites likely secondary to noncompliance who presented to [facility] on 06/13/2024 status post large-volume paracentesis with worsening abdominal pain Decompensated cirrhosis with recurrent ascites ? Known history of decompensated cirrhosis secondary to chronic alcohol use, chronic hepatitis C and KEYES. Hemodynamically stable on admission with stable lab values but noted to have worsening recurrent ascites with abdominal discomfort. S/p therapeutic paracentesis done by radiology on 06/13 with 5.5 L removed. Had mild hypotension on morning of 06/14, given 2 doses of IV albumin with improvement. Unfortunately had quick reaccumulation of ascites. S/p therapeutic paracentesis on again by radiology on 06/15 with 3.6 L of straw- colored fluid removed. Blood pressure stable post paracentesis. Unfortunately did not have labs drawn with either paracentesis given high suspicion that fluid was due to cirrhosis. Restarted home Lasix and spironolactone on 06/15. Exam on 06/17 with worsening abdominal distention and mild fluid wave noted. Will plan for paracentesis tomorrow and have paracentesis labs drawn with this. She needs to be on midodrine for rapidly recurring ascites and increase her spironolactone and Lasix. I do not know how compliant she will be with that due to the fact that she is homeless. Abdominal pain -Abdominal pain is multifactorial. She is constipated and she likely has symptomatic mechanical induced gastroparesis. I will give her GoLytely and order gastric emptying study for tomorrow. 3. Homelessness ? Case management following for assistance with discharge planning. 4. Mild postoperative hypotension with mild creatinine elevation, improved ? Creatinine 1.19 postoperatively, baseline 0.8-0.9. Presumed prerenal etiology. Received small LR fluid bolus and given a dose of IV albumin as well with some improvement in blood pressure. Creatinine improved to baseline on 06/14. Home diuretics restarted on 06/15 as noted above. Monitor daily labs. Chronic medical conditions: ? Obesity: BMI 31 on admit. Complicates hospital course, care and prognosis. ? Chronic anemia: Hemoglobin remaining stable at baseline around 10-11 during hospitalization. ? Chronic thrombocytopenia: Platelets stable at baseline around 60-70 during hospitalization. ? Anxiety/depression/insomnia/neuropathy: Stable. Continue home BuSpar, desvenlafaxine, gabapentin, topiramate and melatonin at night as needed. ? GERD: Continue home PPI. ? History of alcohol abuse: Encouraged continued cessation. DVT prophylaxis: Lovenox Total clinical time spent by myself addressing the patient's medical issues, reviewing all the data, and collaborating with patient's care team: 35 minutes. Charges/Coding Visit Charges Inpatient E&M: 70649 Init Hosp L3
[2024-06-18 20:34] VITALS: BP 126/75; PULSE 61; RESP 15; TEMP 36.6; O2SAT 99
[2024-06-18] MEDS: Ketorolac 30 MG/ML Syringe IV (20:53)
[2024-06-18] MEDS: 0.9% Saline Lock 10 ML Syringe IV (20:53)
[2024-06-18] MEDS: Electrolyte Solution/Peg's 4000 ML PO (21:15)
[2024-06-19 02:46] VITALS: BP 105/63; PULSE 64; RESP 16; TEMP 36.8; O2SAT 100
[2024-06-19] MEDS: Ketorolac 30 MG/ML Syringe IV ×2 (02:50→11:57)
[2024-06-19] MEDS: 0.9% Saline Lock 10 ML Syringe IV (02:50)
--- NOTE | 2024-06-19 07:42 | PN.HOSP_ITS ---
Reason for Visit Reason for Visit: Diagnoses Alcoholic cirrhosis of liver with ascites (06/15/24) Hepatic failure, unspecified without coma (06/15/24) Unspecified cirrhosis of liver (06/15/24) Calculus of ureter (06/15/24) Other ascites (06/15/24) Subjective Subjective Had gastric empty study performed. Upon returning, was asking for a diet. Objective Data Objective Data Vital Signs: Vital Signs Temp Pulse Resp BP Pulse Ox O2 Del Method 36.8 C 64 16 105/63 100 Room Air 06/19/24 02:46 06/19/24 02:46 06/19/24 02:46 06/19/24 02:46 06/19/24 02:46 06/19/24 02:46 Oxygen Delivery Method Room Air Weight: 77 kg Body Mass Index (BMI) 31.0 Intake & Output: Intake and Output for Last 24 Hours 06/17/24 06/18/24 06/19/24 23:59 23:59 23:59 Intake Total 900 / 900 1040 / 1040 600 / 600 Balance 900 / 900 1040 / 1040 600 / 600 Lab / Micro Data 06/17/24 07:11 06/17/24 07:11 Radiography Diagnostic Testing: Radiology Impression Abdomen Ultrasound 06/18/24 06:00 IMPRESSION: Not enough fluid for a safe paracentesis. Electronically Signed: Isidro Burnett MD at 14:18 EDT , KUB X-Ray 06/18/24 12:50 IMPRESSION: Normal x-ray examination of the abdomen and pelvis. Electronically Signed: Jamaal Reeves DO at 17:30 EDT , Social Homelessness:: Unsheltered Physical Exam Const Constitutional Narrative: Patient was on the phone with dietary but made no efforts to try to hasten the call or interact with me but appeared to be in no distress. Assessment & Plan Assessment/Plan (1) Right ureteral stone: (2) Decompensated cirrhosis: (3) Abdominal ascites: QUALIFIERS: Ascites type: due to alcoholic cirrhosis Qualified Code(s): K70.31 - Alcoholic cirrhosis of liver with ascites PLAN: Plan Right ureteral stone * S/p cystoscopy with right ureteroscopic laser lithotripsy of stone and right stent removal on 06/[address] Dawson. Tolerated procedure well, no intraoperative complications. Urinating postoperatively with no pain or discomfort. Management per urology. Ascites * Suspected to decompensated liver disease * Paracentesis on 06/13 and . Removal of 5.5 and 3.6 liters respectively. Repeat paracentesis attempted on the but that was not enough fluid to safely perform. * Continue furosemide and spironolactone. Up titration limited given low normal BP. Will add midodrine so that the diuretics can be uptitrated in the future. Fluid restricted diet. * Fluid and sodium restricted diet. * GI consult. * Patient with abdominal pain: Abd xray on the was unremarkable. Homelessness * complicates disposition * Case mgmt input appreciated. * Plans for the patient to go to a battered woman nursing home when medically ready. Abdominal pain * Appears to be doing well at this time. Gastric emptying study was negative. Abdominal x-ray was negative. Chronic medical conditions: * Obesity class I: BMI 31 on admit. Complicates hospital course, care and prognosis. * Chronic anemia: Hemoglobin remaining stable at baseline around 10-11 during hospitalization. * Chronic thrombocytopenia: Platelets stable at baseline around 60-70 during hospitalization. * Anxiety/depression/insomnia/neuropathy: Stable. Continue home BuSpar, desvenlafaxine, gabapentin, topiramate and melatonin at night as needed. * GERD: Continue home PPI. * History of alcohol abuse: Encouraged continued cessation. VTE prophylaxis: enoxaparin Patient to be discharged to a woman nursing home.
[2024-06-19 08:45] VITALS: BP 94/63; PULSE 60; RESP 18; TEMP 36.6; O2SAT 100
--- NOTE | 2024-06-19 10:00 | NM_ITS ---
EXAM: NM GASTRIC EMPTYING SCAN CLINICAL INDICATION: bloating and abdominal pain TECHNIQUE: Patient was fed a drink or meal containing Tc99m sulfur colloid. Images of the abdomen were obtained over a period of 1 hour. Half time of gastric emptying and percent retention of radionuclide activity were calculated. COMPARISON: No relevant prior studies available. FINDINGS: STOMACH: Gastric emptying time is normal with 34% emptying at 30 minutes and 58% at 60 minutes. Half time of the gastric emptying is 54 minutes. NM/Gastric Emptying Study IMPRESSION: Normal gastric emptying. Electronically Signed: Tony Siegel MD at 13:07 EDT ,
--- NOTE | 2024-06-19 10:12 | CASEMGMT ---
Discussed Palliative Care for pt in rounds with hospitalist. Pt is not appropriate at this time. No order received.
--- NOTE | 2024-06-19 12:01 | NURSING ---
Went into room to give the pt her pain med as she requested and she just started yelling at this RN about how no one is listening to her. She is in so much pain and all we do is give her things that are making it worse. I tried to explain this is why we are doing testing on her, however she did not want to listen to me and kept yelling at me. She said that she is just going to leave an do some illegal drugs to help her with the pain. I offered her her AMA papers but then she started yelling about how she is homeless and has no where to go.
--- NOTE | 2024-06-19 13:53 | CASEMGMT ---
Social Work- SW met with pt, as she was escalating verbally d/t being NPO and reporting pain. SW spent considerable time actively and empathetically listening to pt concerns, providing education and support, and allowing processing of feelings. Pt continues to be very reflective of her life, discussing realizations she's made as she has aged, processing mistakes she feels she has made, and attempting to reconcile many life events and choices. Pt shows fair-good insight. Pt was able to express herself and act in a regulated state for the duration of SW visit. SW will follow up for discharge needs when d/c is determined. MIRIAM Clemente
[2024-06-19] MEDS: busPIRone 5 MG Tablet 10 MG PO (14:11)
[2024-06-19 14:12] VITALS: BP 102/64; PULSE 66; RESP 18; TEMP 36.3; O2SAT 99
[2024-06-19] MEDS: Pantoprazole Sodium 40 MG Tablet PO (14:18)
--- NOTE | 2024-06-19 14:45 | CASEMGMT ---
Addendum entered by Sravanthi Mcdaniel 06/19/24 16:27: Social Work- SW met with pt who reports no availability at [facility] [place], [facility], [facility], and [facility]. Pt left a message at [facility]. Pt will call [facility]. SW provided a list of upcoming appointments with phone numbers of shelters. Pt is fearful of being on the streets and reports that she is in pain and feels that everyone is saying suffer bitch. SW provided empathetic, active listening and education once again, as well as worked pt through her emotions. Pt was able to de-escalate and reported that she would shower and eat supper after calling the remaining fpc. SW encouraged pt that she could pursue medical treatment at another facility or return to the ER if she experiences increased pain or a change in medical status. SW remains available to follow for d/c needs. SW provided [facility] transport information to charge nurse if needed for an out-of-town fpc. MIRIAM Clemente Original Note: Social Work- SW met with pt to discuss pending d/c. SW provided list of fpc names and numbers, as shelters reported that they would need to talk to pt herself. Physician reports pt is no longer NPO. Pt was ordering food when SW entered room. SW provided some jello, crackers, and drink while pt waits for her food. Pt will call shelters while waiting for food. SW will f/u for any d/c needs. MIRIAM Clemente
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
--- NOTE | 2024-06-19 17:30 | EX.PCM.PN.GI ---
Subjective Subjective Patient did drink some of the prep and did have a better bowel movement then with lactulose. I told her she should go back to taking lactulose 3 times a day. Objective Data Objective Data Vital Signs: Vital Signs Temp Pulse Resp BP Pulse Ox O2 Del Method 97.3 F L 66 18 102/64 99 Room Air 06/19/24 14:12 06/19/24 14:12 06/19/24 14:12 06/19/24 14:12 06/19/24 14:12 06/19/24 14:12 Oxygen Delivery Method Room Air Weight: 169 lb 12.095 oz Body Mass Index (BMI) 31.0 Intake & Output: Intake and Output for Last 24 Hours 06/17/24 06/18/24 06/19/24 23:59 23:59 23:59 Intake Total 900 / 900 1040 / 1040 600 / 600 Balance 900 / 900 1040 / 1040 600 / 600 Lab / Micro Data 06/17/24 07:11 06/17/24 07:11 Radiography Diagnostic Testing: Radiology Impression KUB X-Ray 06/18/24 12:50 IMPRESSION: Normal x-ray examination of the abdomen and pelvis. Electronically Signed: Jamaal Reeves DO at 17:30 EDT , Gastric Emptying Nuclear Medicine 06/19/24 10:00 IMPRESSION: Normal gastric emptying. Electronically Signed: Tony Siegel MD at 13:07 EDT , Social Homelessness:: Unsheltered Physical Exam Const alert and no apparent distress HEENT head/scalp atraumatic and moist oral mucous membranes Resp normal respiratory effort, no retractions, no use of accessory muscles and clear to auscultation bilaterally Cardio regular rate, regular rhythm, S1 normal heart sound and S2 normal heart sound GI GI Narrative: Distended. Hypoactive bowel sounds. Neuro Neuro Narrative: Appears older than stated age. Sensorium / Orientation: awake and alert Assessment & Plan Assessment/Plan (1) Right ureteral stone: (2) Decompensated cirrhosis: (3) Abdominal ascites: QUALIFIERS: Ascites type: due to alcoholic cirrhosis Qualified Code(s): K70.31 - Alcoholic cirrhosis of liver with ascites PLAN: Plan Patient is a 48-year-old female with end-stage liver disease secondary to chronic hepatitis C/ alcoholic cirrhosis complicated by recurrent refractory ascites likely secondary to noncompliance who presented to [facility] 06[facility]13[facility]24 status post large-volume paracentesis with worsening abdominal pain Decompensated cirrhosis with recurrent ascites ? Known history of decompensated cirrhosis secondary to chronic alcohol use, chronic hepatitis C and KEYES. Hemodynamically stable on admission with stable lab values but noted to have worsening recurrent ascites with abdominal discomfort. S/p therapeutic paracentesis done by radiology on 06/13 with 5.5 L removed. Had mild hypotension on morning of 06/14, given 2 doses of IV albumin with improvement. Unfortunately had quick reaccumulation of ascites. S/p therapeutic paracentesis on again by radiology on 06/15 with 3.6 L of straw-colored fluid removed. Blood pressure stable post paracentesis. Unfortunately did not have labs drawn with either paracentesis given high suspicion that fluid was due to cirrhosis. Restarted home Lasix and spironolactone on 06/15. Exam on 06/17 with worsening abdominal distention and mild fluid wave noted. Will plan for paracentesis tomorrow and have paracentesis labs drawn with this. She needs to be on midodrine for rapidly recurring ascites and increase her spironolactone and Lasix. I do not know how compliant she will be with that due to the fact that she is homeless. Abdominal pain -Abdominal pain is multifactorial. She is constipated and she likely has symptomatic mechanical induced gastroparesis. I will give her GoLytely and order gastric emptying study for tomorrow. 3. Homelessness ? Case management following for assistance with discharge planning. 4. Mild postoperative hypotension with mild creatinine elevation, improved ? Creatinine 1.19 postoperatively, baseline 0.8-0.9. Presumed prerenal etiology. Received small LR fluid bolus and given a dose of IV albumin as well with some improvement in blood pressure. Creatinine improved to baseline on 06/14. Home diuretics restarted on 06/15 as noted above. Monitor daily labs. Chronic medical conditions: ? Obesity: BMI 31 on admit. Complicates hospital course, care and prognosis. ? Chronic anemia: Hemoglobin remaining stable at baseline around 10-11 during hospitalization. ? Chronic thrombocytopenia: Platelets stable at baseline around 60-70 during hospitalization. ? Anxiety/depression/insomnia/neuropathy: Stable. Continue home BuSpar, desvenlafaxine, gabapentin, topiramate and melatonin at night as needed. ? GERD: Continue home PPI. ? History of alcohol abuse: Encouraged continued cessation. DVT prophylaxis: Lovenox Charges/Coding Visit Charges Inpatient E&M: 05008 Subs Hosp L3
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
== END 2024-06-19 19:48 | disposition home or self-care (01) | DRG 280 ==
LOC: SDC 12:55 → MS3 12:55
PROVIDERS: Hospitalist; Admitting Provider Urology; Referring Provider Urology; Visit Provider Urology
PROC: 0TJ98ZZ Inspection of Ureter, Via Natural or Artificial Opening Endoscopic (ICD-10-PCS; CPT 52352; principal; 2024-06-13 09:45)
DX: K70.31 Alcoholic cirrhosis of liver with ascites (principal); D69.6 Thrombocytopenia, unspecified; D50.9 Iron deficiency anemia, unspecified; B18.2 Chronic viral hepatitis C; F10.11 Alcohol abuse, in remission; E66.9 Obesity, unspecified; I95.81 Postprocedural hypotension; F31.9 Bipolar disorder, unspecified; F17.210 Nicotine dependence, cigarettes, uncomplicated; K75.81 Nonalcoholic steatohepatitis (NASH); G62.9 Polyneuropathy, unspecified; K21.9 Gastro-esophageal reflux disease without esophagitis; F41.9 Anxiety disorder, unspecified; K59.00 Constipation, unspecified; K31.84 Gastroparesis; N20.2 Calculus of kidney with calculus of ureter; R79.89 Other specified abnormal findings of blood chemistry; G47.00 Insomnia, unspecified; Z68.31 Body mass index [BMI] 31.0-31.9, adult; Z59.02 Unsheltered homelessness; Z79.899 Other long term (current) drug therapy; Z91.199 Patient's noncompliance with other medical treatment and regimen due to unspecified reason
CPT/HCPCS: 36415; 49083; 74018; 76705; 78264; 80053; 82607; 82728; 82746; 83540; 83550; 85025; 85027; 85610; 97802; 99406; A9541; J7040; J7120; P9047; A4216; C1769

== ENCOUNTER 2025-02-04 10:58 | Emergency (ER) | payer MEDICAID, SELFPAY ==
[2025-02-04] VITALS (7 sets, daily range): BP systolic 92–134; BP diastolic 50–100; PULSE 58–78; RESP 16–20; TEMP 36.6–37.1; O2SAT 97–100; BMI 50.8
[2025-02-04 11:32] LABS: Absolute Lymphocyte Count 1.26 X10^3/uL (0.83-4.51); Absolute Neutrophil Count 4.2 X10^3/uL (2.0-7.7); Basophil# 0.05 X10^3/uL; Basophil% 0.8 % (0-1); Eosinophil# 0.22 X10^3/uL; Eosinophils% 3.4 % (0-5); Hematocrit 37.2 % (37-47); Hemoglobin 13.1 g/dL (12.0-15.0); Lymphocyte # 1.26 X10^3/ul (0.83-4.51); Lymphocyte % 19.7 % (19-41); Mean Corp Hgb Conc 35.2 g/dL (32-36); Mean Corpuscular Hgb 32.8 pg (27.0-32.0); Monocyte# 0.62 X10^3/uL; Monocyte% 9.7 % (0-10); NRBC Flagged by Analyzer 0 % (0-5); Neutrophil # 4.21 X10^3/uL (2.7-7.7); Neutrophil % 66.1 % (47-70); POSITIVE COUNT YES; RBC Distribution Width SD 54.3 fl (35.1-43.9); White Blood Count 6.4 K/mm3 (4.4-11.0)
[2025-02-04 11:35] LABS: Differential Indicated SCAN CRITERIA MET; Platelet Count 49 K/mm3 (150-450)
[2025-02-04 11:59] LABS: ALB/GLOB Ratio 0.8 RATIO (0.9-2.4); AST(SGOT) 121 U/L (<=31); Alanine Aminotransfer ALT/SGPT 94 U/L (<=34); Albumin, Serum 3.2 g/dL (3.5-5.0); Alkaline Phosphatase 170 U/L (35-104); Anion Gap 8 (5-15); BUN 11 mg/dL (4-19); BUN/Creat Ratio 12.3 RATIO (10-20); Calcium,Total 9.1 mg/dL (7.6-11.0); Carbon Dioxide 20.4 mmol/L (21.0-32.0); Chloride 107 mmol/L (98-108); Creatinine, Serum 0.92 mg/dL (0.70-1.20); EST Glomerular Filtration Rate 75 (>60); Estimated Creatinine Clearance 91.94 ml/min (50-250); Globulin 4.1 g/dL (2.2-4.2); Glucose 147 mg/dL (70-99); Internal QC Validated? YES +Cl - CLEAR BKGD; Lipase 83 U/L (13-75); Potassium 4.1 mmol/L (3.3-5.1); Pregnancy, Serum, hCG Quali. NEGATIVE Negative; Protein, Total 7.3 g/dL (5.9-8.4); Sodium Level 136 mmol/L (133-145); Total Bilirubin 1.98 mg/dL (0.00-1.30)
[2025-02-04 12:44] LABS: Platelet Estimate MKD DEC (ADEQ)
--- NOTE | 2025-02-04 14:08 | CT_ITS ---
PROCEDURE: ABDOMEN/PELVIS W IV CONT ONLY 02/04/2025 REASON FOR EXAM: ABDOMINAL PAIN TECHNIQUE: Abdomen and pelvis CT with intravenous contrast. Coronal and Sagittal reconstruction series were provided. PATIENT PREPARATION: Per protocol ORAL CONTRAST TYPE: None. CONTRAST: Isovue 3 7 VOLUME: 100 mL One or more dose reduction techniques were used (e.g., Automated exposure control, adjustment of the mA and/or kV according to patient size, use of iterative reconstruction technique. RADIATION DOSE SUMMARY: CTDlvol: 15.2 mGy DLP: 1011.5 mGycm COMPARISON: Prior study dated June 06, 2024. FINDINGS: Lung bases: Unremarkable. Liver: Diffuse fatty infiltration. Hepatomegaly. Nodular contour suggestive of cirrhotic change. Gallbladder: Mild degree of gallbladder wall thickening. Spleen: Moderate degree of splenomegaly. Pancreas: Normal size without evidence of mass surrounding inflammation or ductal dilation. Adrenals: Unremarkable Kidneys: Normal renal sizes. No hydronephrosis. Bladder: Unremarkable Reproductive Organs: Unremarkable bilateral tubal ligation clips are noted. Bowel: Findings suggestive of colitis of the right hemicolon. Appendix: The appendix is not identified. There is no inflammatory process identified in the right lower quadrant to suggest appendicitis. Lymph nodes: Unremarkable. Vasculature: The abdominal aorta and IVC are normal. Peritoneum / Retroperitoneum: Prior anterior ventral hernia repair with a mesh. Bones: Degenerative changes of the spine. CT/Abdomen/Pelvis W IV Cont ONLY IMPRESSION: Hepatosplenomegaly. Diffuse fatty infiltration of the liver. Gallbladder wall thickening. Findings suggestive of colitis of the right hemicolon. Reading Location: [id number]
--- NOTE | 2025-02-04 14:09 | EDS_ITS ---
HPI History of Present Illness Chief Complaint: Abd Pain Informant: patient Onset/Context/Timing Onset: Days (3) Context: Gradual Onset Timing: Continuous Quality: Pressure Location: Abdomen Worsened by: Nothing Relieved by: Nothing Narrative Narrative: Patient presents with abdominal pain that has been getting worse over the past 3 days. Patient describes it as a pressure. Patient states it is diffuse across her abdomen. Patient states nothing makes it better nothing makes it worse. Patient admits to some nausea but denies any vomiting. Patient states her pain radiates into her back. Patient states she has a history of hepatitis C, cirrhosis, and pancreatitis. Patient denies any diarrhea, melena, or hematochezia. Patient denies any urinary complaints. Patient denies any fevers or chills. [facility] Medical History Decompensated cirrhosis Abdominal ascites Redness of skin Blackout Urolithiasis Hydronephrosis with renal calculous obstruction Hydroureteronephrosis Bipolar disorder Anxiety Depression Ascites of liver Complete edentulism, class III Alcohol abuse Chronic pain GERD (gastroesophageal reflux disease) Restless legs Iron deficiency anemia Hyperbilirubinemia Substance abuse Marijuana use MRSA infection Low iron Anemia Hepatitis Migraine headache Seizures History of diverticulitis COPD (chronic obstructive pulmonary disease) Smoker Obesity Thrombocytopenia Polysubstance abuse Cirrhosis of liver Anxiety and depression Hepatitis C, chronic Home Medications ?Medication ?Instructions ?Recorded ?Last Taken ?Type gabapentin 100 mg capsule 100 mg PO Q12H nerve pain 06/12/24 History melatonin 5 mg tablet 5 mg PO QHS PRN sleep 06/12/24 History desvenlafaxine succinate 50 mg 50 mg PO DAILY #30 tabs 06/19/24 Unknown Rx tablet,extended release 24 hr ferrous sulfate 325 mg (65 mg 325 mg PO DAILY suppleme nt #30 tabs 06/19/24 Unknown Rx iron) tablet (FeroSul) lactulose 10 gram/15 mL oral 10 g (15 mL) PO TID PRN s tomach 06/19/24 Unknown Rx solution upset #3,000 mL midodrine 10 mg tablet 10 mg PO TID #90 tabs Unknown Rx spironolactone 50 mg tablet 50 mg PO BID #60 tabs 05/28 01/17 Unknown Rx topiramate 50 mg tablet 100 mg (2 x 50 mg) PO DAILY #30 06/19/24 06/12/24 Rx tabs furosemide 40 mg tablet (Lasix) 40 mg PO DAILY DIURETI C #30 tabs 06/22/24 Unknown Rx buspirone 10 mg tablet 10 mg PO BID ANXIETY #60 tab s 01/23/25 Unknown Rx rifaximin 550 mg tablet (Xifaxan) 550 mg PO BID 30 day s #60 tabs 01/23/25 Unknown Rx trazodone 50 mg tablet 50 mg PO QHS PRN 01/23/25 Un known History amoxicillin 875 mg-potassium 875 mg PO Q12H #20 TABLET S 02/04/25 Unknown Rx clavulanate 125 mg tablet Allergy/AdvReac Type Severity Reaction Status Date / Time bupropion HCl (From Allergy SEIZURES Verified 02/04/25 10:58 Wellbutrin) codeine Allergy Rash Verified 02/04/25 10:58 Family History Mother Diabetes Father Cancer HX Throat CA. Surgical History History of abdominal paracentesis H/O tubal ligation History of liver biopsy Social History adopted: No household members: family housing: other number of children: 3 current occupational status: unemployed pets and animals: Yes history of recent travel: No sexually active: Yes Smoking Status: Current every day smoker tobacco type: cigarettes second hand exposure: Yes alcohol intake: current alcohol intake frequency: a few times a month substance use type: former substance user Date of last use: heroin, methamphetamine, marijuana and other seatbelt use: always do you feel safe at home: Yes ROS ROS ED Constitutional Constitutional ED: Denies chills or fever(s) Eyes Eyes: Denies blurry vision or change in vision ENT ENT ED: Denies rhinorrhea or sore throat Cardiovascular Cardiovascular: Denies chest pain or palpitations Respiratory/Chest Respiratory/Chest: Denies cough or dyspnea Gastrointestinal Gastrointestinal: Reports abdominal pain and nausea; Denies vomiting Genitourinary Genitourinary ED: Denies dysuria or hematuria Musculoskeletal Musculoskeletal: Reports back pain; Denies neck pain Integumentary Denies abscess or rash Neurologic Neurologic: Denies headache(s) or weakness Allergic/Immunologic Allergic/Immunologic ED: Denies mouth swelling or urticaria EXAM Physical Exam Const Vital Signs: 02/04/25 10:58 02/04/25 11:01 02/04/25 12:01 Temperature 98.8 F 98.8 F 98.8 F Temperature Source Oral Oral Oral Pulse Rate 64 58 L 58 L Respiratory Rate 20 H 16 16 Blood Pressure 108/70 113/75 104/83 H Blood Pressure Mean 82 87 90 Pulse Ox 99 100 97 Oxygen Delivery Method Room Air Room Air 02/04/25 12:58 02/04/25 13:00 02/04/25 14:00 Temperature 98.8 F Temperature Source Oral Pulse Rate 60 58 L Respiratory Rate 16 Blood Pressure 115/80 115/80 92/50 L Blood Pressure Mean 91 91 64 Pulse Ox 99 100 Oxygen Delivery Method Room Air Room Air Positive well nourished and well developed Constitutional Narrative: BMI is 50.8 General Appearance ED: well developed and NAD HEENT Reports moist mucous membranes Neck supple and no JVD Resp normal respiratory effort and clear to auscultation bilaterally Cardio regular rate and regular rhythm GI non-distended Palpation: soft and tender epigastric, LUQ and RUQ; Negative for guarding or rebound tenderness present Neuro oriented x3, CN's II-XII intact bilaterally and no sensory deficits noted Sensorium / Orientation: alert Motor Exam: strength 5/5 throughout Psych mental status grossly normal MDM MDM MDM Narrative Medical decision making narrative: Differential diagnosis includes pancreatitis, gastritis, cholecystitis, cholelithiasis, pancreatitis, urinary tract infection, electrolyte abnormality, and spontaneous bacterial peritonitis. CBC will be obtained to assess for leukocytosis and anemia. Comprehensive metabolic profile will be obtained to assess for hepatic function, renal function, and electrolyte abnormality. Lipase will be obtained to assess for pancreatitis. Serum hCG will be obtained to assess for . CT scan of the abdomen and pelvis will be obtained to assess for bowel obstruction, perforation, ascites, and ureteral calculi. History & Record Review Additional record(s) reviewed:: Prior inpatient record, Prior ED visit and Prior labs Lab Data Attestation: I reviewed the patient's lab results. Lab results narrative: CBC was reviewed. Platelets were low at 49. White blood cell count was normal. Hemoglobin and hematocrit were within normal limits. Comprehensive metabolic profile was reviewed. Total bilirubin is mildly elevated at 1.98. AST was slightly elevated at 121 and ALT was mildly elevated at 94. Alkaline phosphatase was slightly elevated at 170. These are consistent with previous results. The remainder was essentially within normal limits. Lipase was reviewed and was slightly elevated at 83. Serum hCG was reviewed and was negative. Labs: Laboratory Results - last 24 hr 02/04/25 11:22 WBC 6.4 RBC 4.00 L Hgb 13.1 Hct 37.2 MCV 93.0 MCH 32.8 H MCHC 35.2 RDW Std Deviation 54.3 H RDW Coeff of Katalina 16.0 H Plt Count 49 L* MPV 12.0 Immature Gran % (Auto) 0.300 Neut % (Auto) 66.1 Lymph % (Auto) 19.7 [place] % (Auto) 9.7 Eos % (Auto) 3.4 Baso % (Auto) 0.8 Absolute Neuts (auto) 4.2 Absolute Lymphs (auto) 1.26 Nucleated RBC % 0 Platelet Estimate MKD DEC Sodium 136 Potassium 4.1 Chloride 107 Carbon Dioxide 20.4 L Anion Gap 8 BUN 11 Creatinine 0.92 Estim Creat Clear Calc 91.94 Est GFR (MDRD) Non-Af 75 BUN/Creatinine Ratio 12.3 Glucose 147 H Calcium 9.1 Total Bilirubin 1.98 H AST 121 H ALT 94 H Alkaline Phosphatase 170 H Total Protein 7.3 Albumin 3.2 L Globulin 4.1 Albumin/Globulin Ratio 0.8 L Lipase 83 H Serum , Qual NEGATIVE Radiography Diagnostic Testing: Clinical Impression(s) from Imaging Studies Abdomen/Pelvis CT 02/04/25 14:08 IMPRESSION: Hepatosplenomegaly. Diffuse fatty infiltration of the liver. Gallbladder wall thickening. Findings suggestive of colitis of the right hemicolon. Reading Location: [facility] CT scan of the abdomen and pelvis was obtained. There is colitis of the right hemicolon. There is some gallbladder wall thickening. There is no other acute abnormality noted. Treatment and Re-Evaluation :: Patient was given IV fluids, morphine, and Zofran. Patient was feeling better on reevaluation. Patient was advised of her findings. Patient was given a prescription for Augmentin. Patient was instructed to eat a bland diet. Patient was instructed to with her primary care physician in 3 to 5 days. Patient understood and was agreeable with plan. All questions were answered. Discharge Plan Triage Chief Complaint: Abd Pain ED Provider: Michi Cope Dx/Rx/DC Orders Clinical Impression: Colitis, Hepatitis C, chronic Instructions: ED Understanding Colitis Prescriptions: New amoxicillin-pot clavulanate 875-125 mg tablet 875 mg PO Q12H Qty: 20 0RF No Action furosemide [Lasix] 40 mg tablet 40 mg PO DAILY Qty: 30 0RF Rx Instructions: start on 04/14/24 trazodone 50 mg tablet 50 mg PO QHS PRN Xifaxan 550 mg tablet 550 mg PO BID 30 Days Qty: 60 6RF buspirone 10 mg tablet 10 mg PO BID Qty: 60 0RF gabapentin 100 mg capsule 100 mg PO Q12H melatonin 5 mg tablet 5 mg PO QHS PRN (Reason: sleep) midodrine 10 mg tablet 10 mg PO TID Qty: 90 0RF Rx Instructions: do not give last dose of day after 6PM or within 4 hrs of bedtime ferrous sulfate [FeroSul] 325 mg (65 mg iron) tablet 325 mg PO DAILY Qty: 30 0RF spironolactone 50 mg Tablet 50 mg PO BID Qty: 60 1RF topiramate 50 mg tablet 100 mg PO DAILY Qty: 30 0RF lactulose 10 gram/15 mL solution 10 g PO TID PRN (Reason: stomach upset) Qty: 3000 0RF desvenlafaxine succinate 50 mg tablet extended release 24 hr 50 mg PO DAILY Qty: 30 0RF Primary Care Provider: [facility] Nadia Schilling Referrals: [facility] Nadia Schilling [Primary Care Provider] - 3-5 Days Print Language: Singaporean Disposition Disposition: Home, Self Care
[2025-02-04] MEDS: Ondansetron 4 MG/2 ML Vial IV (14:38)
[2025-02-04] MEDS: Morphine 4 MG/ML Syringe IV (14:39)
[2025-02-04] MEDS: 0.9% Normal Saline (1000mL) 1,000 ML 1000 ML IV (14:40)
== END 2025-02-04 16:08 | disposition home or self-care (01) ==
PROVIDERS: Emergency Provider Emergency Medicine; Visit Provider Emergency Medicine
DX: R10.9 Unspecified abdominal pain (principal); J44.9 Chronic obstructive pulmonary disease, unspecified; B18.2 Chronic viral hepatitis C; K52.9 Noninfective gastroenteritis and colitis, unspecified; F17.210 Nicotine dependence, cigarettes, uncomplicated; F32.A Depression, unspecified; Z79.899 Other long term (current) drug therapy; F41.9 Anxiety disorder, unspecified; Z98.51 Tubal ligation status; R11.0 Nausea
CPT/HCPCS: 74177; 80053; 83690; 84703; 85025; 96361; 96374; 96375; 99282; Q9967; A4216; J2405

== ENCOUNTER → 2025-02-07 | Outpatient (CLI) | payer MEDICAID, SELFPAY ==
[2025-02-07 12:19] LABS: Absolute Neutrophil Count 4.5 X10^3/uL (2.0-7.7); Basophil# 0.05 X10^3/uL; Basophil% 0.7 % (0-1); Eosinophil# 0.29 X10^3/uL; Eosinophils% 4.1 % (0-5); Hemoglobin 12.9 g/dL (12.0-15.0); Mean Corp Hgb Conc 34.9 g/dL (32-36); Mean Corpuscular Hgb 32.3 pg (27.0-32.0); Mean Corpuscular Volume 92.5 fL (81-99); Mean Platelet Vol. 12.2 fl (6.2-12.0); Monocyte# 0.79 X10^3/uL; Monocyte% 11.3 % (0-10); NRBC Flagged by Analyzer 0 % (0-5); Neutrophil # 4.45 X10^3/uL (2.7-7.7); Neutrophil % 63.6 % (47-70); POSITIVE COUNT YES; RBC Distribution Width CV 16.1 % (11.6-14.6); RBC Distribution Width SD 54.2 fl (35.1-43.9)
[2025-02-07 13:01] LABS: Ammonia 91.2 umol/L (11-51)
[2025-02-07 13:12] LABS: ALB/GLOB Ratio 0.8 RATIO (0.9-2.4); AST(SGOT) 103 U/L (<=31); Alanine Aminotransfer ALT/SGPT 79 U/L (<=34); Albumin, Serum 3.2 g/dL (3.5-5.0); Alkaline Phosphatase 171 U/L (35-104); Anion Gap 8 (5-15); BUN 11 mg/dL (4-19); BUN/Creat Ratio 11.1 RATIO (10-20); Calcium,Total 9.1 mg/dL (7.6-11.0); Carbon Dioxide 19.5 mmol/L (21.0-32.0); Chloride 108 mmol/L (98-108); Creatinine, Serum 0.98 mg/dL (0.70-1.20); EST Glomerular Filtration Rate 70 (>60); Globulin 3.8 g/dL (2.2-4.2); Glucose 81 mg/dL (70-99); Protein, Total 7.1 g/dL (5.9-8.4); Sodium Level 135 mmol/L (133-145); Total Bilirubin 1.77 mg/dL (0.00-1.30)
[2025-02-07 13:57] LABS: Differential Indicated SCAN CRITERIA MET; Platelet Count 50 K/mm3 (150-450)
[2025-02-07 13:59] LABS: Platelet Estimate MOD DEC (ADEQ)
== END | disposition home or self-care (01) ==
LOC: VSLAB 11:51
PROVIDERS: PCP Nurse Practitioner Family; Visit Provider Nurse Practitioner Family
DX: K52.9 Noninfective gastroenteritis and colitis, unspecified (principal)
CPT/HCPCS: 36415; 80053; 82140; 85025

== ENCOUNTER 2025-02-08 11:16 | Emergency (ER) | payer MEDICAID, SELFPAY ==
[2025-02-08 11:16] VITALS: BP 108/74; PULSE 62; RESP 14; TEMP 36.6; O2SAT 98; BMI 33.7
[2025-02-08] MEDS: Ondansetron ODT 4 MG Tablet 8 MG PO (12:17)
[2025-02-08] MEDS: morphine 10 MG/ML Syringe IM (12:17)
--- NOTE | 2025-02-08 12:25 | EX.ED.DYSGE1 ---
HPI History of Present Illness Chief Complaint: Abd Pain Informant: patient Narrative Narrative: 49-year-old female presenting with chronic abdominal pain and the pain all over her body. She admits this is been going on for years. She states she has been diagnosed with alcoholic cirrhosis as well as hepatitis C, none of which is curable without a liver transplant that she is not a candidate for. She has been seen by GI here, as well as her PCP at the [facility], she has had a referral put in for palliative care but it has not happened yet, this was maybe a week ago, she is in a lot of pain, she was here 4 days ago for the same pain, and when she asked for something for pain over the phone from the office today, they referred her back here to the ER according to her. [facility] Medical History Decompensated cirrhosis Abdominal ascites Redness of skin Blackout Urolithiasis Hydronephrosis with renal calculous obstruction Hydroureteronephrosis Bipolar disorder Anxiety Depression Ascites of liver Complete edentulism, class III Alcohol abuse Chronic pain GERD (gastroesophageal reflux disease) Restless legs Iron deficiency anemia Hyperbilirubinemia Substance abuse Marijuana use MRSA infection Low iron Anemia Hepatitis Migraine headache Seizures History of diverticulitis COPD (chronic obstructive pulmonary disease) Smoker Obesity Thrombocytopenia Polysubstance abuse Cirrhosis of liver Anxiety and depression Hepatitis C, chronic Home Medications ?Medication ?Instructions ?Recorded ?Last Taken ?Type gabapentin 100 mg capsule 100 mg PO Q12H nerve pain 07/20/23 06/12/24 History melatonin 5 mg tablet 5 mg PO QHS PRN sleep 04/11/24 06/12/24 History desvenlafaxine succinate 50 mg 50 mg PO DAILY #30 tabs 06/19/24 Unknown Rx tablet,extended release 24 hr ferrous sulfate 325 mg (65 mg 325 mg PO DAILY supplement #30 tabs 06/19/24 Unknown Rx iron) tablet (FeroSul) midodrine 10 mg tablet 10 mg PO TID #90 tabs 06/19/24 Unknown Rx spironolactone 50 mg tablet 50 mg PO BID #60 tabs 06/19/24 Unknown Rx topiramate 50 mg tablet 100 mg (2 x 50 mg) PO DAILY #30 06/19/24 06/12/24 Rx tabs buspirone 10 mg tablet 10 mg PO BID ANXIETY #60 tabs 01/23/25 Unknown Rx rifaximin 550 mg tablet (Xifaxan) 550 mg PO BID 30 days #60 tabs 01/23/25 Unknown Rx trazodone 50 mg tablet 50 mg PO QHS PRN 01/23/25 Unknown History amoxicillin 875 mg-potassium 875 mg PO Q12H #20 TABLETS 02/04/25 Unknown Rx clavulanate 125 mg tablet furosemide 40 mg tablet (Lasix) 40 mg PO DAILY DIURETIC #30 tabs 02/05/25 Unknown Rx lactulose 10 gram/15 mL oral 10 g (15 mL) PO TID PRN stomach 02/05/25 Unknown Rx solution upset #3,000 mL ondansetron 8 mg disintegrating 8 mg PO Q8H PRN nausea and 02/08/25 Unknown Rx tablet vomiting #20 tabs oxycodone 5 mg tablet 5 mg PO Q6H PRN pain 4 days #15 02/08/25 Unknown Rx tabs Allergy/AdvReac Type Severity Reaction Status Date / Time bupropion HCl (From Allergy SEIZURES Verified 02/08/25 11:17 Wellbutrin) codeine Allergy Rash Verified 02/08/25 11:17 Family History Mother Diabetes Father Cancer HX Throat CA. Surgical History History of abdominal paracentesis H/O tubal ligation History of liver biopsy Social History adopted: No household members: family housing: other number of children: 3 current occupational status: unemployed pets and animals: Yes history of recent travel: No sexually active: Yes Smoking Status: Current every day smoker tobacco type: cigarettes second hand exposure: Yes alcohol intake: current alcohol intake frequency: a few times a month substance use type: former substance user Date of last use: heroin, methamphetamine, marijuana and other seatbelt use: always do you feel safe at home: Yes ROS ROS ED Constitutional Constitutional ED: Denies chills or fever(s) Eyes Eyes: Denies change in vision or diplopia ENT ENT ED: Denies rhinorrhea or sore throat Cardiovascular Cardiovascular: Denies chest pain or palpitations Respiratory/Chest Respiratory/Chest: Denies cough or dyspnea Gastrointestinal Gastrointestinal: Reports abdominal pain and nausea; Denies diarrhea or vomiting Genitourinary Genitourinary ED: Denies dysuria or hematuria Musculoskeletal Musculoskeletal: Reports back pain and myalgias; Denies neck pain Integumentary Denies abscess or rash Neurologic Neurologic: Denies headache(s), paresthesias or weakness Psychiatric Psychiatric: Denies suicidal thoughts EXAM Physical Exam Const Vital Signs: 02/08/25 11:16 Temperature 98 F Temperature Source Temporal Pulse Rate 62 Respiratory Rate 14 Blood Pressure 108/74 Blood Pressure Mean 85 Pulse Ox 98 Oxygen Delivery Method Room Air Positive well nourished and well developed General Appearance ED: well developed and NAD HEENT Reports moist mucous membranes normocephalic and atraumatic Eyes PERRL and EOMs intact bilaterally Neck full ROM and supple Resp normal respiratory effort and clear to auscultation bilaterally Cardio regular rate, regular rhythm and no murmurs GI GI Narrative: Abdominal distention but does not feel tight. Abdomen is soft. Positive fluid wave. Mostly tender in the left upper quadrant. No right upper quadrant tenderness. Auscultation: normoactive bowel sounds Palpation: soft Back/Spine no CVA tenderness General Back: other FROM Extremity normal to inspection General Extremety ED: Negative for edema, pulses abnormal or tenderness General Extremity: Negative for edema or pulses abnormal Neuro oriented x3, CN's II-XII intact bilaterally and no sensory deficits noted Sensorium / Orientation: awake and alert Motor Exam: strength 5/5 throughout Skin no rashes or lesions noted and no wounds MDM MDM MDM Narrative Medical decision making narrative: I spoke with case management. They were able to discuss with case management at her primary care office, and we were able to obtain a lot more information. They also were concerned about the patient's pain, but apparently her primary care provider was uncomfortable prescribing her pain medication because of her liver. Patient states she has been on gabapentin and taking no more than 2 Tylenol tablets per day, because of her liver. Given all of that, case management referred her to Dr. Garay with pain management but she has not had that appointment yet. She had been at [facility] for [employer] [facility] and was transferred to [place] because they thought that she only had a couple weeks to live but that ended up not being the case, and for this reason apparently she is not a candidate for hospice. Hence, being referred for palliative care. I reviewed the ER visit from 4 days ago. There was no talk about anything with regards to palliative care in the dictation/documentation. I do not feel the patient needs to have any of those tests repeated. As a matter fact she had repeat blood work yesterday and I reviewed that as well, apparently as an outpatient. Her CT from 4 days ago did not show anything acute. She has a ride home I gave her an injection of morphine and some prophylactic Zofran. She is eating and drinking, her appetite has been suffering because of the pain and nausea. I think very reasonable to prescribe this patient Zofran and oxycodone, and if she runs out I advised her to call her primary care to see if they would be willing to do this until she sees pain management and/or palliative. The patient appears hydrated. Her vital signs are normal. She is alert and oriented, and consistently taking her lactulose which is keeping her bowels moving. She also is already set up for weekly paracentesis which she has been getting and does not appear to need one right now, she has no dyspnea with exertion or major limitations from abdominal distention acutely at this time. I also did check an [facility] report, she has rare prescriptions for antibiotics and none of them have been recent. History & Record Review Additional record(s) reviewed:: Prior ED visit Management Discussion w/another healthcare provider: metal control worker/Case management Discharge Plan Triage Chief Complaint: Abd Pain ED Provider: Chris Ramos Dx/Rx/DC Orders Clinical Impression: Cirrhosis of liver, Chronic abdominal pain Instructions: ED Chronic Pain Prescriptions: New ondansetron 8 mg tablet,disintegrating 8 mg PO Q8H PRN (Reason: nausea and vomiting) Qty: 20 0RF oxycodone 5 mg tablet 5 mg PO Q6H PRN (Reason: pain) 4 Days Qty: 15 0RF No Action trazodone 50 mg tablet 50 mg PO QHS PRN Xifaxan 550 mg tablet 550 mg PO BID 30 Days Qty: 60 6RF buspirone 10 mg tablet 10 mg PO BID Qty: 60 0RF gabapentin 100 mg capsule 100 mg PO Q12H melatonin 5 mg tablet 5 mg PO QHS PRN (Reason: sleep) midodrine 10 mg tablet 10 mg PO TID Qty: 90 0RF Rx Instructions: do not give last dose of day after 6PM or within 4 hrs of bedtime ferrous sulfate [FeroSul] 325 mg (65 mg iron) tablet 325 mg PO DAILY Qty: 30 0RF spironolactone 50 mg Tablet 50 mg PO BID Qty: 60 1RF topiramate 50 mg tablet 100 mg PO DAILY Qty: 30 0RF desvenlafaxine succinate 50 mg tablet extended release 24 hr 50 mg PO DAILY Qty: 30 0RF amoxicillin-pot clavulanate 875-125 mg tablet 875 mg PO Q12H Qty: 20 0RF lactulose 10 gram/15 mL solution 10 g PO TID PRN (Reason: stomach upset) Qty: 3000 0RF furosemide [Lasix] 40 mg tablet 40 mg PO DAILY Qty: 30 0RF Rx Instructions: start on 04/14/24 Primary Care Provider: Tresa Wells Referrals: Tresa Wells, [facility] [Primary Care Provider] - (If you have further issues before seeing palliative care or pain management) Print Language: Kyrgyz Disposition Disposition: Home, Self Care
--- NOTE | 2025-02-08 13:08 | CM.ED ---
Social Work SW met with patient, introduced self and explained role with hospital. Patient stated she had been working with Ailyn Nathan from the [facility] to get palliative services started. Patient states she does not know where the process is but gave SW permission to call and speak to Ailyn Nathan on her behalf. Ailyn was contacted at [phone], Ailyn stated that patient had recently had a stay at [facility] and while she was there, [facility] felt her medical health had deteriorated to the point of needing medical hospitalization so patient was sent to [place]. According to Ailyn, [place] [facility] did not admit patient and discharged her home with her daughter. Patient had no permanent address set up or medical care. The [facility] assisted getting patient to [place] where she is currently living. Patient also has a community high risk case manager, Ailyn Shankar. Ailyn Shankar was also contacted at [phone] who told SW that patient has a palliative referral completed on January 28 and they also put in for an appointment with Dr. Parker for pain management. SW was also notified that patient was seeing a primary care at [facility] however they would not prescribe her pain meds due to her liver function. ER physician notified of all information. Mae Sorto, TRACK REPAIRER, ANIMAL [employer] CODE ENFORCEMENT OFFICER
[2025-02-08 13:33] VITALS: BP 117/80; PULSE 51; RESP 16; TEMP 37.1; O2SAT 100
== END 2025-02-08 13:34 | disposition home or self-care (01) ==
PROVIDERS: Emergency Provider Emergency Medicine; PCP Nurse Practitioner Family; Visit Provider Emergency Medicine
DX: K74.60 Unspecified cirrhosis of liver (principal); J44.9 Chronic obstructive pulmonary disease, unspecified; B18.2 Chronic viral hepatitis C; R10.9 Unspecified abdominal pain; R11.0 Nausea; G89.29 Other chronic pain; F17.210 Nicotine dependence, cigarettes, uncomplicated; Z79.899 Other long term (current) drug therapy
CPT/HCPCS: 96372; 99282

== ENCOUNTER 2025-02-21 22:34 | Emergency (ER) | payer OTHER, MEDICAID, SELFPAY ==
--- NOTE | 2025-02-21 01:00 | RAD_ITS ---
PROCEDURE: CHEST PA AND LATERAL 02/22/2025 REASON FOR EXAM: COUGH TECHNIQUE: Frontal and lateral views of the chest. COMPARISON: 12/09/2023 FINDINGS: The lungs appear clear. Pulmonary vascularity appears within limits. No pleural effusion. The cardiac and mediastinal contours appear within limits. The visualized osseous structures appear within limits. RAD/Chest PA and Lateral IMPRESSION: No evidence of acute process. Reading Location: [id number]
[2025-02-21 22:34] VITALS: BP 124/80; PULSE 69; RESP 18; TEMP 35.8; O2SAT 99; BMI 35.6
--- NOTE | 2025-02-21 23:47 | CT_ITS ---
PROCEDURE: ABDOMEN/PELVIS WITHOUT CONT 02/22/2025 REASON FOR EXAM: PAIN TECHNIQUE: Abdomen and pelvis CT without intravenous contrast. Noncontrast technique limits evaluation of the abdominal and pelvic viscera. Coronal and Sagittal reconstruction series were provided. One or more dose reduction techniques were used (e.g., Automated exposure control, adjustment of the mA and/or kV according to patient size, use of iterative reconstruction technique). PATIENT PREPARATION: Per protocol ORAL CONTRAST TYPE: None. COMPARISON: 02/04/2025 FINDINGS: The lung bases are clear. Cirrhosis and splenomegaly with stigmata of portal hypertension with previously noted recannulation of the paraumbilical vein on prior contrast-enhanced study. Overall the amount of abdominopelvic free fluid, ascites is mildly increased now greatest area at the anterior upper pelvis axial 138 and coronal 61 for example. The amount of mesenteric and omental congested stranding appearance also appears increased. Anasarca now present. The gallbladder is distended without definite gallbladder fossa fluid seen. No evidence of biliary ductal dilation. The adrenal glands, right kidney appear within limits on noncontrast imaging. A few small calcifications are seen at the uncinate process of the pancreas may represent sequela of previous pancreatitis. A couple of punctate nonobstructing left intrarenal stones. Abdominal aorta appears within limits on noncontrast imaging. Shotty appearing retroperitoneal and mesenteric nodes. No bowel dilation or free air. Moderate colonic stool. No obvious colonic wall thickening currently appreciated. Mild prominence of the terminal ileum is nonspecific in the setting of liver disease, can not exclude an inflammatory/infectious process. The appendix appears unchanged without features concerning for appendicitis. The uterus, adnexa and bladder appear within limits. Bilateral tubal ligation clips again noted. L5-S1 spondylosis/discogenic change again noted. CT/Abdomen/Pelvis without Cont IMPRESSION: The gallbladder is distended without definite gallbladder fossa fluid seen. No evidence of biliary ductal dilation. May represent a prolonged fasting state, nonspecific, clinically correlate Cirrhosis and splenomegaly with stigmata of portal hypertension with previously noted recannulation of the paraumbilical vein on prior contrast-enhanced study. Overall the amount of abdominopelvic free fluid, ascites is mildly increased no w greatest area at the anterior upper pelvis axial 138 and coronal 61 for example. The amount of mesenteric and omental congested stranding appearance also appears increased. Anasarca now present. Moderate colonic stool. Mild prominence of the terminal ileum is nonspecific in the setting of liver di sease, can not exclude an inflammatory/infectious process. Reading Location: [id number]
--- NOTE | 2025-02-21 23:58 | ED.VIS.GI ---
HPI HPI - GI History of Present Illness Chief Complaint: Abd Pain Informant: patient Narrative Narrative: History of cirrhosis remote alcohol history last use a year ago. She is followed by GI Dr. Adams. She states she is concerned she is filled with fluid. She states she hurts everywhere. She has a cough. No fevers. No urinary symptoms. Her last paracentesis was 2 months ago she states was typically getting every 2 to 3 weeks however there is an insurance issues. She seen her GI doctor earlier this month states she needed to get her paracentesis done. She states she is compliant with her medications. She has at least 2 loose bowel movements a day. [facility] Medical History Decompensated cirrhosis Abdominal ascites Redness of skin Blackout Urolithiasis Hydronephrosis with renal calculous obstruction Hydroureteronephrosis Bipolar disorder Anxiety Depression Ascites of liver Complete edentulism, class III Alcohol abuse Chronic pain GERD (gastroesophageal reflux disease) Restless legs Iron deficiency anemia Hyperbilirubinemia Substance abuse Marijuana use MRSA infection Low iron Anemia Hepatitis Migraine headache Seizures History of diverticulitis COPD (chronic obstructive pulmonary disease) Smoker Obesity Thrombocytopenia Polysubstance abuse Cirrhosis of liver Anxiety and depression Hepatitis C, chronic Home Medications Medication Instructions Recorded Last Taken Type gabapentin 100 mg capsule 100 mg PO Q12H nerve pain 07/20/23 06/12/24 History melatonin 5 mg tablet 5 mg PO QHS PRN sleep 04/11/24 06/12/24 History desvenlafaxine succinate 50 mg 50 mg PO DAILY #30 tabs 06/19/24 Unknown Rx tablet,extended release 24 hr ferrous sulfate 325 mg (65 mg 325 mg PO DAILY supplement #30 tabs 06/19/24 Unknown Rx iron) tablet (FeroSul) midodrine 10 mg tablet 10 mg PO TID #90 tabs 06/19/24 Unknown Rx spironolactone 50 mg tablet 50 mg PO BID #60 tabs 06/19/24 Unknown Rx topiramate 50 mg tablet 100 mg (2 x 50 mg) PO DAILY #30 06/19/24 06/12/24 Rx tabs buspirone 10 mg tablet 10 mg PO BID ANXIETY #60 tabs 01/23/25 Unknown Rx rifaximin 550 mg tablet (Xifaxan) 550 mg PO BID 30 days #60 tabs 01/23/25 Unknown Rx trazodone 50 mg tablet 50 mg PO QHS PRN 01/23/25 Unknown History amoxicillin 875 mg-potassium 875 mg PO Q12H #20 TABLETS 02/04/25 Unknown Rx clavulanate 125 mg tablet furosemide 40 mg tablet (Lasix) 40 mg PO DAILY DIURETIC #30 tabs 02/05/25 Unknown Rx lactulose 10 gram/15 mL oral 10 g (15 mL) PO TID PRN stomach 02/05/25 Unknown Rx solution upset #3,000 mL ondansetron 8 mg disintegrating 8 mg PO Q8H PRN nausea and 02/08/25 Unknown Rx tablet vomiting #20 tabs oxycodone 5 mg tablet 5 mg PO Q6H PRN pain 4 days #15 02/08/25 Unknown Rx tabs Allergy/AdvReac Type Severity Reaction Status Date / Time bupropion HCl (From Allergy SEIZURES Verified 02/21/25 22:34 Wellbutrin) codeine Allergy Rash Verified 02/21/25 22:34 Family History Mother Diabetes Father Cancer HX Throat CA. Surgical History History of abdominal paracentesis H/O tubal ligation History of liver biopsy Social History adopted: No household members: family housing: other number of children: 3 current occupational status: unemployed pets and animals: Yes history of recent travel: No sexually active: Yes Smoking Status: Current every day smoker tobacco type: cigarettes second hand exposure: Yes alcohol intake: current alcohol intake frequency: a few times a month substance use type: former substance user Date of last use: heroin, methamphetamine, marijuana and other seatbelt use: always do you feel safe at home: Yes ROS ROS ED Constitutional Constitutional ED: Denies chills, fever(s) or sweats ENT ENT ED: Denies sore throat Cardiovascular Cardiovascular: Denies chest pain, leg edema, palpitations or racing heartbeat Respiratory/Chest Respiratory/Chest: Reports cough; Denies dyspnea or dyspnea on exertion Gastrointestinal Gastrointestinal: Reports abdominal pain; Denies diarrhea, nausea or vomiting Genitourinary Genitourinary ED: Denies dysuria, hematuria or urinary frequency Musculoskeletal Musculoskeletal: Denies back pain, extremity pain or neck pain Integumentary Denies rash or wounds Neurologic Neurologic: Denies headache(s), paresthesias or weakness EXAM Physical Exam Const Vital Signs: 02/21/25 22:34 02/22/25 00:34 02/22/25 02:00 Temperature 96.5 F L 97.8 F 98 F Temperature Source Temporal Oral Oral Pulse Rate 69 66 70 Respiratory Rate 18 14 15 Blood Pressure 124/80 H 104/65 106/69 Blood Pressure Mean 94 78 81 Pulse Ox 99 95 95 Oxygen Delivery Method Room Air Room Air Room Air 02/22/25 02:00 02/22/25 03:57 02/22/25 04:34 Temperature 98.2 F 98.5 F Temperature Source Oral Pulse Rate 71 63 64 Respiratory Rate 16 16 16 Blood Pressure 106/69 123/65 H 104/61 Blood Pressure Mean 81 84 75 Pulse Ox 96 99 98 Oxygen Delivery Method Room Air Room Air Positive well nourished and well developed General Appearance ED: well developed and NAD HEENT Reports moist mucous membranes normocephalic and atraumatic Eyes General Eye ED: Yes normal appearance of both eyes Neck full ROM Chest Wall Chest: Negative for tenderness Resp normal respiratory effort and normal air movement Effort and Inspection: symmetric chest movement; Negative for respiratory distress Cardio regular rate, regular rhythm and no murmurs Peripheral Pulses: pulses 2+ throughout GI GI Narrative: Generalized tenderness no guarding or rebound. No tense abdomen, no fluid wave. Palpation: Negative for guarding or rebound tenderness present Extremity normal to inspection Extremity Narrative: Minimal edema lower extremities. General Extremety ED: Yes edema; Negative for tenderness General Extremity: edema Neuro oriented x3 and no sensory deficits noted Sensorium / Orientation: awake and alert Skin no rashes or lesions noted and no wounds MDM MDM MDM Narrative Medical decision making narrative: Interventions / MDM: Differential diagnosis: Cirrhosis, ascites, upper respiratory infection peripheral edema. Diagnosis considered but do not suspect: Pneumonia however x-ray negative. My EKG interpretation: N/A Imaging independently reviewed and interpreted by myself: 2 view chest x-ray: No acute process. CT abdomen pelvis without contrast: Ascites slightly increased from previous. Also read by radiology. External documents reviewed: ED visit from 15 days ago similar presentation social work saw her she is scheduled and saw pain management. She reports was being bridged until she sees palliative today for continued care. Test considered but not ordered:N/A ED course: Vital stable nontoxic. Patient concerns are being filled with fluid. She has a nonsurgical abdomen. She reports a cough. 2 view chest x-ray abdominal labs ordered. Will check CT abdomen pelvis. Patient labs are stable from previous. Platelets 39 slightly down from 50. No active bleeding. Slightly elevated liver enzymes similar to previous. Lipase 88 also similar to previous. Creatinine normal at 0.97. CT scan slightly increased ascites compared to previous. However not as significant. Clinically stable she has oxycodone at home she has a palliative appointment today at 1 PM. There is no skin fluid that warrants any emergent paracentesis at this time. Discussed this with the patient. Discussed importance with follow-up with her palliative appointment today along with her GI doctors. No indication requiring hospitalization as workup with stable labs from previous. Re-evaluation: stable Disposition discussed with patient/family/significant other: Patient Case discussed with consulting clinician: N/A This note was generated with [employer] dictation software. It may contain incorrect words, spelling, and punctuation that were not noted in checking the note before signing. Lab Data Attestation: I reviewed the patient's lab results. Labs: Laboratory Results - last 24 hr 02/22/25 00:02 WBC 6.5 RBC 3.71 L Hgb 12.0 Hct 34.5 L MCV 93.0 MCH 32.3 H MCHC 34.8 RDW Std Deviation 57.5 H RDW Coeff of Katalina 17.1 H Plt Count 39 L* MPV 11.1 Immature Gran % (Auto) 0.500 Neut % (Auto) 67.3 Lymph % (Auto) 17.2 L Kingfisher % (Auto) 10.6 H Eos % (Auto) 3.8 Baso % (Auto) 0.6 Absolute Neuts (auto) 4.4 Absolute Lymphs (auto) 1.12 Nucleated RBC % 0 Platelet Estimate MKD DEC Sodium 136 Potassium 3.4 Chloride 106 Carbon Dioxide 22.6 Anion Gap 7 BUN 8 Creatinine 0.97 Estim Creat Clear Calc 70.88 Est GFR (MDRD) Non-Af 71 BUN/Creatinine Ratio 8.6 L Glucose 93 Calcium 8.8 Total Bilirubin 2.14 H AST 92 H ALT 56 H Alkaline Phosphatase 189 H Total Protein 7.2 Albumin 3.3 L Globulin 3.9 Albumin/Globulin Ratio 0.8 L Lipase 88 H Radiography Diagnostic Testing: Clinical Impression(s) from Imaging Studies Chest X-Ray 02/21/25 01:00 IMPRESSION: No evidence of acute process. Reading Location: [facility] Abdomen/Pelvis CT 02/21/25 23:47 IMPRESSION: The gallbladder is distended without definite gallbladder fossa fluid seen. No evidence of biliary ductal dilation. May represent a prolonged fasting state, nonspecific, clinically correlate Cirrhosis and splenomegaly with stigmata of portal hypertension with previously noted recannulation of the paraumbilical vein on prior contrast-enhanced study. Overall the amount of abdominopelvic free fluid, ascites is mildly increased now greatest area at the anterior upper pelvis axial 138 and coronal 61 for example. The amount of mesenteric and omental congested stranding appearance also appears increased. Anasarca now present. Moderate colonic stool. Mild prominence of the terminal ileum is nonspecific in the setting of liver disease, can not exclude an inflammatory/infectious process. Reading Location: [facility] Discharge Plan Triage Chief Complaint: Abd Pain ED Provider: Pedrito Rosario Dx/Rx/DC Orders Clinical Impression: Cirrhosis of liver, URI (upper respiratory infection), Abdominal ascites, Thrombocytopenia Instructions: Cirrhosis of Liver Dc, ED Ascites, ED URI, Viral, No Abx (Adult) Prescriptions: No Action trazodone 50 mg tablet 50 mg PO QHS PRN Xifaxan 550 mg tablet 550 mg PO BID 30 Days Qty: 60 6RF buspirone 10 mg tablet 10 mg PO BID Qty: 60 0RF gabapentin 100 mg capsule 100 mg PO Q12H melatonin 5 mg tablet 5 mg PO QHS PRN (Reason: sleep) midodrine 10 mg tablet 10 mg PO TID Qty: 90 0RF Rx Instructions: do not give last dose of day after 6PM or within 4 hrs of bedtime ferrous sulfate [FeroSul] 325 mg (65 mg iron) tablet 325 mg PO DAILY Qty: 30 0RF spironolactone 50 mg Tablet 50 mg PO BID Qty: 60 1RF topiramate 50 mg tablet 100 mg PO DAILY Qty: 30 0RF desvenlafaxine succinate 50 mg tablet extended release 24 hr 50 mg PO DAILY Qty: 30 0RF amoxicillin-pot clavulanate 875-125 mg tablet 875 mg PO Q12H Qty: 20 0RF ondansetron 8 mg tablet,disintegrating 8 mg PO Q8H PRN (Reason: nausea and vomiting) Qty: 20 0RF oxycodone 5 mg tablet 5 mg PO Q6H PRN (Reason: pain) 4 Days Qty: 15 0RF lactulose 10 gram/15 mL solution 10 g PO TID PRN (Reason: stomach upset) Qty: 3000 0RF furosemide [Lasix] 40 mg tablet 40 mg PO DAILY Qty: 30 0RF Rx Instructions: start on 04/14/24 Primary Care Provider: Tresa Wells Referrals: Son Adams MD [Med Staff - Active Staff] - 1 Week Tresa Wells CARE CONSULTANT-C [Primary Care Provider] - Activity Restrictions/Additional Instructions: Your abdominal scan with mild increase in ascites. However overall no significant fluid seen. Your labs are all stable. Similar platelets, similar liver enzyme elevation. Your creatinine 0.97. Your concern for increasing edema of your legs. Increase your Lasix to twice a day for the next 5 days. Keep your palliative care appointment at 1 PM today. Follow-up with Dr. Adams with GI. Print Language: Danish Disposition Disposition: Home, Self Care Discharge Date/Time: 02/22/25 04:56
[2025-02-22] MEDS: Ondansetron 4 MG/2 ML Vial IV (00:11)
[2025-02-22] MEDS: Morphine 4 MG/ML Syringe IV (00:11)
[2025-02-22 00:24] LABS: Absolute Lymphocyte Count 1.12 X10^3/uL (0.83-4.51); Absolute Neutrophil Count 4.4 X10^3/uL (2.0-7.7); Basophil# 0.04 X10^3/uL; Basophil% 0.6 % (0-1); Eosinophil# 0.25 X10^3/uL; Eosinophils% 3.8 % (0-5); Hematocrit 34.5 % (37-47); Lymphocyte # 1.12 X10^3/ul (0.83-4.51); Lymphocyte % 17.2 % (19-41); Mean Corp Hgb Conc 34.8 g/dL (32-36); Mean Corpuscular Hgb 32.3 pg (27.0-32.0); Mean Platelet Vol. 11.1 fl (6.2-12.0); Monocyte# 0.69 X10^3/uL; Monocyte% 10.6 % (0-10); NRBC Flagged by Analyzer 0 % (0-5); Neutrophil # 4.37 X10^3/uL (2.7-7.7); Neutrophil % 67.3 % (47-70); POSITIVE COUNT YES; RBC Distribution Width CV 17.1 % (11.6-14.6); RBC Distribution Width SD 57.5 fl (35.1-43.9); Red Blood Count 3.71 M/mm3 (4.2-5.4); White Blood Count 6.5 K/mm3 (4.4-11.0)
[2025-02-22 00:31] LABS: Differential Indicated SCAN CRITERIA MET; Platelet Count 39 K/mm3 (150-450)
[2025-02-22 00:34] VITALS: BP 104/65; PULSE 66; RESP 14; TEMP 36.6; O2SAT 95
[2025-02-22 00:44] LABS: ALB/GLOB Ratio 0.8 RATIO (0.9-2.4); AST(SGOT) 92 U/L (<=31); Alanine Aminotransfer ALT/SGPT 56 U/L (<=34); Albumin, Serum 3.3 g/dL (3.5-5.0); Alkaline Phosphatase 189 U/L (35-104); Anion Gap 7 (5-15); BUN 8 mg/dL (4-19); BUN/Creat Ratio 8.6 RATIO (10-20); Calcium,Total 8.8 mg/dL (7.6-11.0); Carbon Dioxide 22.6 mmol/L (21.0-32.0); Chloride 106 mmol/L (98-108); Creatinine, Serum 0.97 mg/dL (0.70-1.20); EST Glomerular Filtration Rate 71 (>60); Estimated Creatinine Clearance 70.88 ml/min (50-250); Globulin 3.9 g/dL (2.2-4.2); Glucose 93 mg/dL (70-99); Lipase 88 U/L (13-75); Potassium 3.4 mmol/L (3.3-5.1); Protein, Total 7.2 g/dL (5.9-8.4); Sodium Level 136 mmol/L (133-145); Total Bilirubin 2.14 mg/dL (0.00-1.30)
[2025-02-22 01:13] LABS: Platelet Estimate MKD DEC (ADEQ)
[2025-02-22 02:00] VITALS: BP 106/69; PULSE 70; PULSE 71; RESP 15; RESP 16; TEMP 36.6; O2SAT 95; O2SAT 96
[2025-02-22] MEDS: Furosemide 40 MG/4 ML Vial IV (03:54)
[2025-02-22 03:57] VITALS: BP 123/65; PULSE 63; RESP 16; TEMP 36.8; O2SAT 99
[2025-02-22 04:34] VITALS: BP 104/61; PULSE 64; RESP 16; TEMP 36.9; O2SAT 98
== END 2025-02-22 04:56 | disposition home or self-care (01) ==
PROVIDERS: Emergency Provider Emergency Medicine; PCP Nurse Practitioner Family; Visit Provider Emergency Medicine
DX: K74.60 Unspecified cirrhosis of liver (principal); F31.9 Bipolar disorder, unspecified; R18.8 Other ascites; R10.9 Unspecified abdominal pain; J06.9 Acute upper respiratory infection, unspecified; D69.6 Thrombocytopenia, unspecified; F41.9 Anxiety disorder, unspecified; F17.210 Nicotine dependence, cigarettes, uncomplicated; Z79.899 Other long term (current) drug therapy
CPT/HCPCS: 71046; 74176; 80053; 83690; 85025; 96374; 96375; 99284; A4216; J1938; J2405

== ENCOUNTER 2025-02-26 20:33 | Emergency (ER) | payer MEDICAID, SELFPAY ==
[2025-02-26 20:33] VITALS: BP 121/60; PULSE 68; RESP 14; TEMP 36.6; O2SAT 100; BMI 36.6
[2025-02-26] MEDS: Silver Nitrate (BKC) 1 EACH TOPICAL (20:57)
[2025-02-26] MEDS: Oxymetazoline 0.05% 1 SPRAY SPRAY.BTL 2 SPRAY NASAL (21:14)
[2025-02-26 21:40] VITALS: BP 135/85; PULSE 64; RESP 18; TEMP 36.6; O2SAT 99
--- NOTE | 2025-02-26 21:57 | EX.ED.DYSGE1 ---
HPI History of Present Illness Chief Complaint: Nosebleed Narrative Narrative: Chief complaint and HPI: Epistaxis. 49-year-old female with past medical history of cirrhosis secondary to hepatitis C and recurrent epistaxis presents for evaluation of right epistaxis. Patient states that she has been having recurrent epistaxis secondary to her cirrhosis. She states she saw ENT outpatient today and they had cauterized the right side of her nose. [facility] when the bleeding started this evening. She applied pressure. States the bleeding lasted approximately 30 minutes so EMS was called. On EMS arrival they applied a clamp and Afrin. Patient denies any fever, chills, shortness of breath, chest pain, lightheadedness. Review of systems: See HPI Medications: As listed on the chart Allergies: As listed on the chart PFSH: Per chart Vital signs: As listed on the chart. Reviewed. Physical exam: Gen: A&O x3, NAD Head: Normocephalic, atraumatic Eyes: No sclera icterus, conjunctiva clear, PERRL, EOMI ENT: TMs clear BL, moist mucous membranes, posterior oropharynx unremarkable, uvula midline, no bleeding in the posterior oropharynx, blood clot visualized in right nare-patient blew her nose and this was removed-she has a small area of active bleeding from previous cauterization, septum midline, left nare unremarkable Neck: Trachea midline, No JVD, Full ROM CV: RRR, no murmurs, no peripheral edema Resp: Lungs CTA BL, no w/r/c Musc: Full ROM Skin: Warm, dry, no rash Neuro: Alert, oriented, grossly intact Psych: Cooperative, appropriate mood and affect [facility] Medical History Decompensated cirrhosis Abdominal ascites Redness of skin Blackout Urolithiasis Hydronephrosis with renal calculous obstruction Hydroureteronephrosis Bipolar disorder Anxiety Depression Ascites of liver Complete edentulism, class III Alcohol abuse Chronic pain GERD (gastroesophageal reflux disease) Restless legs Iron deficiency anemia Hyperbilirubinemia Substance abuse Marijuana use MRSA infection Low iron Anemia Hepatitis Migraine headache Seizures History of diverticulitis COPD (chronic obstructive pulmonary disease) Smoker Obesity Thrombocytopenia Polysubstance abuse Cirrhosis of liver Anxiety and depression Hepatitis C, chronic Home Medications ?Medication ?Instructions ?Recorded ?Last Taken ?Type gabapentin 100 mg capsule 100 mg PO Q12H nerve pain 07/20/23 06/12/24 History melatonin 5 mg tablet 5 mg PO QHS PRN sleep 04/11/24 06/12/24 History desvenlafaxine succinate 50 mg 50 mg PO DAILY #30 tabs 06/19/24 Unknown Rx tablet,extended release 24 hr ferrous sulfate 325 mg (65 mg 325 mg PO DAILY supplement #30 tabs 06/19/24 Unknown Rx iron) tablet (FeroSul) midodrine 10 mg tablet 10 mg PO TID #90 tabs 06/19/24 Unknown Rx spironolactone 50 mg tablet 50 mg PO BID #60 tabs 06/19/24 Unknown Rx topiramate 50 mg tablet 100 mg (2 x 50 mg) PO DAILY #30 06/19/24 06/12/24 Rx tabs buspirone 10 mg tablet 10 mg PO BID ANXIETY #60 tabs 01/23/25 Unknown Rx rifaximin 550 mg tablet (Xifaxan) 550 mg PO BID 30 days #60 tabs 01/23/25 Unknown Rx trazodone 50 mg tablet 50 mg PO QHS PRN 01/23/25 Unknown History amoxicillin 875 mg-potassium 875 mg PO Q12H #20 TABLETS 02/04/25 Unknown Rx clavulanate 125 mg tablet furosemide 40 mg tablet (Lasix) 40 mg PO DAILY DIURETIC #30 tabs 02/05/25 Unknown Rx lactulose 10 gram/15 mL oral 10 g (15 mL) PO TID PRN stomach 02/05/25 Unknown Rx solution upset #3,000 mL ondansetron 8 mg disintegrating 8 mg PO Q8H PRN nausea and 02/08/25 Unknown Rx tablet vomiting #20 tabs oxycodone 5 mg tablet 5 mg PO Q6H PRN pain 4 days #15 02/08/25 Unknown Rx tabs Allergy/AdvReac Type Severity Reaction Status Date / Time bupropion HCl (From Allergy SEIZURES Verified 02/26/25 20:37 Wellbutrin) codeine Allergy Rash Verified 02/26/25 20:37 Family History Mother Diabetes Father Cancer HX Throat CA. Surgical History History of abdominal paracentesis H/O tubal ligation History of liver biopsy Social History adopted: No household members: family housing: other number of children: 3 current occupational status: unemployed pets and animals: Yes history of recent travel: No sexually active: Yes Smoking Status: Current every day smoker tobacco type: cigarettes second hand exposure: Yes alcohol intake: current alcohol intake frequency: a few times a month substance use type: former substance user Date of last use: heroin, methamphetamine, marijuana and other seatbelt use: always do you feel safe at home: Yes EXAM Physical Exam Const Vital Signs: 02/26/25 20:33 02/26/25 21:40 Temperature 97.9 F 97.9 F Temperature Source Oral Pulse Rate 68 64 Respiratory Rate 14 18 Blood Pressure 121/60 H 135/85 H Blood Pressure Mean 80 101 Pulse Ox 100 99 Oxygen Delivery Method Room Air MDM MDM MDM Narrative Medical decision making narrative: 49-year-old female with past medical history of cirrhosis secondary to hepatitis C and recurrent epistaxis presents for evaluation of right epistaxis. Patient states that she has been having recurrent epistaxis secondary to her cirrhosis. She states she saw ENT outpatient today and they had cauterized the right side of her nose. Vitals are stable. Patient in no acute distress. Physical exam shows a small area of active bleeding from previous cauterization site. Exam is consistent with anterior epistaxis. Silver nitrate was applied to the small area of active bleeding and bleeding resolved. Afrin was placed in the nare with repeat nasal plug to prevent rebleeding. This was removed after several minutes and no rebleeding was observed. Patient was ambulated in the emergency department without rebleeding. Patient is stable to discharge home. Patient was given nose plug and Afrin spray to discharge home with in case this reoccurs. Follow-up with ENT. Return precautions explained. She confirmed understand the plan. Impression: 1. Anterior epistaxis 2. History of recurrent epistaxis secondary to cirrhosis Discharge Plan Triage Chief Complaint: Nosebleed ED Provider: Brock Ruiz Dx/Rx/DC Orders Clinical Impression: Anterior epistaxis Instructions: ED Epistaxis (Adult) Prescriptions: No Action trazodone 50 mg tablet 50 mg PO QHS PRN Xifaxan 550 mg tablet 550 mg PO BID 30 Days Qty: 60 6RF buspirone 10 mg tablet 10 mg PO BID Qty: 60 0RF gabapentin 100 mg capsule 100 mg PO Q12H melatonin 5 mg tablet 5 mg PO QHS PRN (Reason: sleep) midodrine 10 mg tablet 10 mg PO TID Qty: 90 0RF Rx Instructions: do not give last dose of day after 6PM or within 4 hrs of bedtime ferrous sulfate [FeroSul] 325 mg (65 mg iron) tablet 325 mg PO DAILY Qty: 30 0RF spironolactone 50 mg Tablet 50 mg PO BID Qty: 60 1RF topiramate 50 mg tablet 100 mg PO DAILY Qty: 30 0RF desvenlafaxine succinate 50 mg tablet extended release 24 hr 50 mg PO DAILY Qty: 30 0RF amoxicillin-pot clavulanate 875-125 mg tablet 875 mg PO Q12H Qty: 20 0RF ondansetron 8 mg tablet,disintegrating 8 mg PO Q8H PRN (Reason: nausea and vomiting) Qty: 20 0RF oxycodone 5 mg tablet 5 mg PO Q6H PRN (Reason: pain) 4 Days Qty: 15 0RF lactulose 10 gram/15 mL solution 10 g PO TID PRN (Reason: stomach upset) Qty: 3000 0RF furosemide [Lasix] 40 mg tablet 40 mg PO DAILY Qty: 30 0RF Rx Instructions: start on 04/14/24 Primary Care Provider: Tresa Wells Referrals: Follow-up with your ENT specialist [Other] - 3-5 Days Tresa Wells NP-C [Primary Care Provider] - 3-5 Days Activity Restrictions/Additional Instructions: Return back to the ED as needed. Afrin and nose plug if rebleeding. Follow-up with your ENT specialist. Print Language: [place] Disposition Disposition: Home, Self Care Discharge Date/Time: 02/26/25 22:01
== END 2025-02-26 22:01 | disposition home or self-care (01) ==
PROVIDERS: Emergency Provider Surgery; PCP Nurse Practitioner Family; Visit Provider Surgery
DX: R04.0 Epistaxis (principal); K74.60 Unspecified cirrhosis of liver; F31.9 Bipolar disorder, unspecified; J44.9 Chronic obstructive pulmonary disease, unspecified; B19.20 Unspecified viral hepatitis C without hepatic coma; G47.00 Insomnia, unspecified; F41.9 Anxiety disorder, unspecified; R53.83 Other fatigue; G89.29 Other chronic pain; F17.210 Nicotine dependence, cigarettes, uncomplicated; Z79.899 Other long term (current) drug therapy
CPT/HCPCS: 30901; 36415; 80053; 82140; 84443; 85025; 99285

== ENCOUNTER → 2025-02-26 | Outpatient (CLI) | payer MEDICAID, SELFPAY ==
[2025-02-26 15:45] LABS: Ammonia 65.7 umol/L (11-51)
[2025-02-26 16:55] LABS: Absolute Lymphocyte Count 1.02 X10^3/uL (0.83-4.51); Absolute Neutrophil Count 3.7 X10^3/uL (2.0-7.7); Basophil# 0.04 X10^3/uL; Basophil% 0.7 % (0-1); Eosinophil# 0.23 X10^3/uL; Eosinophils% 4.1 % (0-5); Hematocrit 33.5 % (37-47); Hemoglobin 11.3 g/dL (12.0-15.0); Lymphocyte # 1.02 X10^3/ul (0.83-4.51); Mean Corp Hgb Conc 33.7 g/dL (32-36); Mean Corpuscular Hgb 32.1 pg (27.0-32.0); Mean Corpuscular Volume 95.2 fL (81-99); Mean Platelet Vol. 11.6 fl (6.2-12.0); Monocyte# 0.69 X10^3/uL; Monocyte% 12.2 % (0-10); NRBC Flagged by Analyzer 0 % (0-5); Neutrophil # 3.66 X10^3/uL (2.7-7.7); Neutrophil % 64.6 % (47-70); POSITIVE COUNT YES; RBC Distribution Width CV 17.2 % (11.6-14.6); RBC Distribution Width SD 58.9 fl (35.1-43.9); Red Blood Count 3.52 M/mm3 (4.2-5.4); White Blood Count 5.7 K/mm3 (4.4-11.0)
[2025-02-26 17:15] LABS: ALB/GLOB Ratio 0.8 RATIO (0.9-2.4); AST(SGOT) 83 U/L (<=31); Alanine Aminotransfer ALT/SGPT 48 U/L (<=34); Alkaline Phosphatase 174 U/L (35-104); Anion Gap 7 (5-15); BUN 7 mg/dL (4-19); BUN/Creat Ratio 7.4 RATIO (10-20); Carbon Dioxide 22.9 mmol/L (21.0-32.0); Chloride 107 mmol/L (98-108); EST Glomerular Filtration Rate 68 (>60); Globulin 3.8 g/dL (2.2-4.2); Glucose 99 mg/dL (70-99); Potassium 3.6 mmol/L (3.3-5.1); Protein, Total 6.8 g/dL (5.9-8.4); Sodium Level 137 mmol/L (133-145); Total Bilirubin 2.75 mg/dL (0.00-1.30)
[2025-02-26 19:23] LABS: Platelet Count 43 K/mm3 (150-450)
[2025-02-26 19:24] LABS: Differential Comment SCANNED
[2025-02-26 19:25] LABS: Platelet Estimate MKD DEC (ADEQ)
--- OUTSIDE RECORDS SUMMARY | 2025-02-26 22:12 | XMS RPT_ITS | CCD ---
Author Organization [facility] Care Team Providers Care Maintenance Supervisor Name Role Phone ABDOLLALUIS MIGUEL LAURENTMEH Unavailable Unav ailable ABDOLLAMONIQUE RODRIGUEZ, RENAY Unavailable Unav ailable Dacia Acosta MD Primary Care Provider Dacia Acosta MD Primary Care Provider Dr. Dacia Acosta Primary Care Provider Dr. Pedrito Rosario Emergency Provider Dr. Sowmya Mirza Admit Provider Dr. Sowmya Mirza Other Provider Dr. Son Adams Other Provider Jim REGULATORY AFFAIRS CONSULTANT, REGULATORY AFFAIRS CONSULTANT-C Kaylin Attending Provider Dacia Acosta MD Primary Care Provider Dr. Dacia Acosta Primary Care Provider Dr. Pedrito Rosario Emergency Provider Dr. Sowmya Mirza Admit Provider Dr. Sowmya Mirza Other Provider Dr. Son Adams Attending Provider Dr. Son Adams Other Provider Dr. Dacia Acosta Referring Provider FriendDr. Kumar Attending Provider [phone] FriendDr. Kumar Other Provider Dacia Acosta MD Primary Care Provider Dr. Dacia Acosta Primary Care Provider Dr. Darius Rosales Emergency Provider [phone] Gurinder Mittal Admit Provider Dr. Gurinder Mittal Other Provider Friend, Dr. Kumar Other Provider Dr. Michi Forbes Attending Provider Dr. Michi Forbes Other Provider CONCHIS Denton Attending Provider Dr. Dacia Acosta Primary Care Provider [phone] Dr. Darius Rosales Emergency Provider [phone] Gurinder Mittal Admit Provider Dr. Gurinder Mittal Other Provider Friend, Dr. Kumar Other Provider Dr. Michi Forbes Attending Provider Dr. Michi Forbes Other Provider CONCHIS Denton Attending Provider Dr. Dacia Acosta Referring Provider Dr. Son Adams Attending Provider Dr. Son Adams Referring Provider Dr. Son Adams Other Provider Unavailable Primary Care Provider UnavailANDERSON Tucker Consulting Unavailable CINDI SALAS Admitting Unavailable SAIMA LIM Attending Unavailable Dr. Elena Hoff Admit Provider Dr. Elena Hoff Attending Provider [phone] Elena Hoff Other Provider Dr. Oscar Pantoja Attending Provider Unavailable Dr. Oscar Pantoja Other Provider Unavailable Dr. Elena Hoff Admit Provider Dr. Elena Hoff Other Provider Dr. Dacia Acosta Primary Care Provider [phone] Dr. Darius Rosales Emergency Provider Dr. Gurinder Mittal Admit Provider Dr. Gurinder Mittal Other Provider Friend, Dr. Kumar Other Provider Dr. Michi Forbes Attending Provider Dr. Michi Forbes Other Provider CONCHIS Denton Attending Provider Dr. Dacia Acosta Referring Provider Bryan, Dr. Cline Attending Provider Bryan, Dr. Cline Referring Provider Bryan, Dr. Cline Other Provider Luis Eduardo, Dr. Elena Higgins Admit Provider Korsherif, Dr. Elena Higgins Other Provider Dr. Oscar Pantoja Attending Provider Unavailable Dr. Oscar Pantoja Other Provider Unavailable Bean RN, Priscilla Unavailable KOKO RUIZ Referring Unavailable DACIA ACOSTA Primary Care Unavailable ELVIN MERAZ Admitting Unavailable JEROME AMAYA Attending Unavailable JT MALDONADO Consulting Unavailable Dr. Dacia Acosta Primary Care Provider [phone] Dr. Son Adams Referring Provider Bryan, Dr. Cline Other Provider Friend, Dr. Kumar Other Provider CONCHIS Denton Attending Provider Dr. Darius Rosales Emergency Provider Luis Eduardo, Dr. Elena Higgins Admit Provider Luis Eduardo, Dr. Elena Higgins Other Provider Dr. Oscar Pantoja Attending Provider Unavailable Dr. Oscar Pantoja Other Provider Unavailable Dr. Dacia Acosta Primary Care Provider Dr. Son Adams Referring Provider Dr. Son Adams Other Provider Kristin, Dr. uKmar Other Provider CONCHIS Denton Attending Provider Dr. Darius Rosales Emergency Provider Luis Eduardo, Dr. Elena Higgins Admit Provider Korsherif, Dr. Elena Higgins Other Provider Dr. Oscar Pantoja Attending Provider Unavailable Kit, Dr. Moore Other Provider Unavailable Dr. Emperatriz Craig Emergency Provider Dr. Sowmya Mirza Admit Provider Dr. Sowmya Mirza Other Provider Dr. Son Adams Attending Provider Dr. Marcelina Porras Attending Provider Dr. Ricardo Pollack Other Provider Bean CAO, Priscilal Unavailable [phone] Dr. Dacia Acosta Primary Care Provider [phone] Dr. Son Adams Other Provider CONCHIS Denton Attending Provider Dr. Son Adams Referring Provider Dr. Dacia Acosta Referring Provider Kristin, Dr. Kumar Other Provider Dacia Acosta MD Primary Care Provider DR DACIA ACOSTA MD Primary Care Physician DR DACIA ACOSTA MD Primary Care Unavailab CARLA Wisdom DO Attending Unavailable Unavailable Primary Care Provider UnavailDACIA Sol Primary Care Unavailable KOKO RUIZ (RES) Attending UnavailCARLA Kramer DO Attending Unavailable DR DACIA ACOSTA MD Primary Care Unavailab le Unavailable Primary Care Provider UnavailKatharina Hamm MD Unavailable Ginny REFRACTORY MIXER, Ashlee Unavailable Alexis Ange Primary Care Provider Pcp REFRACTORY MIXER, No Primary Care Provider Unavailabl e ELDERBROCK, DACIA D Primary Care Unavailable SELF Referring Unavailable MERVIN MATTHEWS Attending Unavailable ELDERBROCK, DACIA D Primary Care Unavailable ELDERBROCK, DACIA D Referring Unavailable SELF Referring Unavailable ELDERBROCK, DACIA D Primary Care Unavailable ELDERBROCK, DACIA D Attending Unavailable ELDERBROCK, DACIA D Primary Care Unavailable KNOBLE, KRISHNA Referring Unavailable ELDERBROCK, DACIA D Primary Care Unavailable KNOBLE, KRISHNA Referring Unavailable ELDERBROCK, DACIA D Primary Care Unavailable KNOBLE, KRISHNA Referring Unavailable ELDERBROCK, DACIA D Primary Care Unavailable KNOBLE, KRISHNA Attending Unavailable ELDERBROCK, DACIA D Primary Care Unavailable ELDERBROCK, DACIA D Primary Care Unavailable ELDERBROCK, DACIA D Primary Care Unavailable MERVIN MATTHEWS Attending Unavailable ELDERBROCK, DACIA D Primary Care Unavailable MELIAS THAYER Attending Unavailable ELDERBROCK, DACIA D Primary Care Unavailable ASHANTI SQUIRES Attending Unavailable [facility] MARCELINA Primary Care Physician CEE DOOLEY, DR BARAHONA Attending Unavailab KRISTIN MADERA MARCELINA Primary Care Unavailable [facility] Primary Care Pro vider [facility] Referring Provid er Bryan DOOLEY, Dr. Cline Attending Provider Dr. Michi Cope DO Emergency Provider Dr. Michi Cope DO Attending Provider Priscilla REGULATORY AFFAIRS CONSULTANT-CTresa Primary Care Provider Priscilla REGULATORY AFFAIRS CONSULTANT-CTresa Attending Provider Richard DOOLEY, Dr. Perez Emergency Provider MD GINGER MILTON (ERIK) Consulting Unavailable PETE PONCE Attending Unavailable GINGER MILTON Consulting Unavailable LEAH HECTOR Attending Unavailable KUSUM COUGHLIN Consulting Unavailable VANESA PRETTY~[id number] ROCCO Admitting Unavailable EXTERNAL, PROVIDER Referring Unavailable KUSUM COUGHLIN Consulting Unavailable KATHARINA WELSH Consulting Unavailable KATHARINA WELSH Consulting Unavailable PETE PONCE Attending Unavailable ESPINOZA ANGE, ANGE~[id number] ESPINOZA Primary Care Unavailable DO LAMBERT VELIZ Attending Unavailable ESPINOZA ANGE, ANGE~[id number] ESPINOZA Primary Care Unavailable PETE PONCE Attending Unavailable ESPINOZA ANGE, ANGE~[id number] ESPINOZA Primary Care Unavailable MD GINGER MILTON (ERIK) Referring Unavailable MD GINGER MILTON (ERIK) Admitting Unavailable ESPINOZA ANGE, ANGE~[id number] [place] Primary Care Unavailable GÓMEZ, MINDA Admitting Unavailable GÓMEZ, MINDA Referring Unavailable GÓMEZ, MINDA Admitting Unavailable GÓMEZ, MINDA Attending Unavailable MD GINGER MILTON (ERIK) Attending Unavailable MD GINGER MILTON (ERIK) Admitting Unavailable MD GINGER MILTON (ERIK) Attending Unavailable MD GINGER MILTON (ERIK) Admitting Unavailable MD GINGER MILTON (ERIK) Admitting Unavailable MD GINGER MILTON (ERIK) Attending Unavailable ESPINOZA ANGE, ANGE~[id number] [place] Primary Care Unavailable MAX RICO Attending Unavailable MAX RICO Admitting Unavailable MAX RICO Attending Unavailable MAX RICO Admitting Unavailable GÓMEZ, MINDA Attending Unavailable GÓMEZ, MINDA Admitting Unavailable GÓMEZ, MINDA Attending Unavailable GÓMEZ, MINDA Admitting Unavailable GÓMEZ, MINDA Admitting Unavailable GÓMEZ, MINDA Attending Unavailable MAX RICO Admitting Unavailable MAX RICO Attending Unavailable MD GINGER MILTON (ERIK) Admitting Unavailable MD GINGER MILTON (ERIK) Attending Unavailable ESPINOZA ANGE, ANGE~[id number] [place] Primary Care Unavailable NEEL ANAND Attending Unavailable ESPINOZA ANGE, ANGE~[id number] [place] Primary Care Unavailable LYSSA FARRELL Attending Unavailable ESPINOZA ANGE, ANGE~[id number] [place] Primary Care Unavailable JOSE ALEJANDRO ROBERTS Attending Unavailable DESTINY ELLER~[id number] BEKAH Attending Unavailable ESPINOZA ANGE, ANGE~[id number] [place] Primary Care Unavailable MAX RICO Referring Unavailable MAX RICO Admitting Unavailable REFERRAL SELF, SELF~[id number] REFERRAL Attendin g Unavailable REFERRAL SELF, SELF~[id number] REFERRAL Referrin g Unavailable ESPINOZA ANGE, ANGE~[id number] ESPINO[place] Primary Care Unavailable MD GINGER MILTON) Referring Unavailable MD GINGER MILTON) Admitting Unavailable GÓMEZ, MINDA Referring Unavailable GÓMEZ, MINDA Admitting Unavailable GÓMEZ, MINDA Referring Unavailable GÓMEZ, MINDA Admitting Unavailable LORRIE, MAX Referring Unavailable DESTINY ELLER~[id number] BEKAH Attending Unavailable ESPINOZA ANGE, ANGE~[id number] [place] Primary Care Unavailable LUCAS VILLANUEVA Attending Unavailabl e ESPINOZA ANGE, ANGE~[id number] [place] Primary Care Unavailable JUDIE VALERIO~[id number] GILL Atte nding Unavailable ESPINOZA ANGE, ANGE~[id number] ESP[place] Primary Care Unavailable MAX RICO Attending Unavailable MD GINGER MILTON (ERIK) Attending Unavailable GÓMEZ, MINDA Attending Unavailable BEKAH DIXON, DESTINY~[id number] BEKAH Attending Unavailable ESPINOZA ANGE, ANGE~[id number] ESP[place] Primary Care Unavailable MAX RICO Referring Unavailable LORRIE, MAX Admitting Unavailable GÓMEZ, MINDA Referring Unavailable GÓMEZ, MINDA Admitting Unavailable MD GINGER MILTON (ERIK) Referring Unavailable LORRIE, MAX Admitting Unavailable LORRIE, MAX Referring Unavailable LORRIE, MAX Admitting Unavailable ESPINOZA ANGE, ANGE~[id number] ESPINO[place] Primary Care Unavailable GÓMEZ, MINDA Referring Unavailable GÓMEZ, MINDA Admitting Unavailable GÓMEZ, MINDA Admitting Unavailable ESPINOZA ANGE, ANGE~[id number] [place] Primary Care Unavailable GÓMEZ, MINDA Referring Unavailable MD GINGER MILTON (ERIK) Attending Unavailable ESPINOZA ANGE, ANGE~[id number] [place] Primary Care Unavailable NE DE GUZMAN Attending Unavailable ESPINOZA ANGE, ANGE~[id number] [place] Primary Care Unavailable GÓMEZ, MINDA Admitting Unavailable ESPINOZA ANGE, ANGE~[id number] ESP[place] Primary Care Unavailable GÓMEZ, MINDA Attending Unavailable MD GINGER MILTON (ERIK) Consulting Unavailable PETE PONCE Attending Unavailable GINGER MILTON Consulting Unavailable PETE PONCE Attending Unavailable ESPINOZA ANGE, ANGE~[id number] [place] Primary Care Unavailable ESPINOZA ANGE, ANGE~[id number] [place] Primary Care Unavailable GÓMEZ, MINDA Admitting Unavailable GÓMEZ, MINDA Attending Unavailable JUDIE VALERIO~[id number] GILL Atte nding Unavailable ESPINOZA ANGE, ANGE~[id number] ESPINO[place] Primary Care Unavailable MD GINGER MILTON (ERIK) Attending Unavailable ESPINOZA ANGE, ANGE~[id number] ESPINO[place] Primary Care Unavailable ESPINOZA ANGE, ANGE~[id number] [place] Primary Care Unavailable GÓMEZ, MINDA Attending Unavailable ESPINOZA ANGE, ANGE~[id number] [place] Primary Care Unavailable YEISON AGUILAR Attending Unavailable KATHARINA WELSH Attending Unavailable KATHARINA WELSH Attending Unavailable MD GINGER MILTON (ERIK) Attending Unavailable KRISTIN, MARCELINA Attending Unavailable GÓMEZ, MINDA Attending Unavailable CONTROL, INFECTION Attending Unavailable KATHARINA WELSH Attending Unavailable ASHLEE FRAZIER Attending Unavailable GÓMEZ, MINDA Admitting Unavailable ESPINOZA NAGE, ANGE~[id number] ESP[place] Primary Care Unavailable NAVJOT WHIPPLE Attending Unavailable ESPINOZA ANGE, ANGE~[id number] [place] Primary Care Unavailable JUDIE VALERIO~[id number] REJI welch Unavailable MD GINGER MILTON (ERIK) Referring Unavailable GÓMEZ, MINDA Attending Unavailable ESPINOZA ANGE, ANGE~[id number] ESPINO[place] Primary Care Unavailable GÓMEZ, MINDA Attending Unavailable REFERRAL SELF, SELF~[id number] REFERRAL Attendin g Unavailable MD GINGER MILTON (ERIK) Attending Unavailable KATHARINA WELSH Attending Unavailable MAX RICO Attending Unavailable MD GINGER MILTON (ERIK) Attending Unavailable ESPINOZA ANGE, ANGE~[id number] ESP[place] Primary Care Unavailable MAX RICO Attending Unavailable ESPINOZA ANGE, ANGE~[id number] ESPINO[place] Primary Care Unavailable MD GINGER MILTON (ERIK) Attending Unavailable KATHARINA WELSH Attending Unavailable ESPINOZA ANGE, ANGE~[id number] ESPINO[place] Primary Care Unavailable GÓMEZ, MINDA Attending Unavailable MAX RICO Admitting Unavailable MAX RICO Attending Unavailable EXTERNAL, PROVIDER Referring Unavailable DO LAMBERT VELIZ Attending Unavailable DATLA, VIVEKANANDA Consulting Unavailable TOD MORROW~[id number] ROSE MARIE Admitting Unavailable DATSUNDEEP, VIVEKANANDA Consulting Unavailable MD GINGER MILTON (ERIK) Consulting Unavailable GINGER MILTON Consulting Unavailable ESPINOZA ANGE, ANGE~[id number] [place] Primary Care Unavailable ABDI ROWAN Consulting Unavailable MD ISABELLA CH Admitting Unavailable LEAH HECTOR Attending Unavailable RALF JONES~[id number] ASHLYN Referring Unavailable ABDI ROWAN Consulting Unavailable KUSUM COUGHLIN Consulting Unavailable ARABELLA KUSUM Consulting Unavailable GÓMEZ, MINDA Consulting Unavailable GÓMEZ, MINDA Consulting Unavailable JAZMYN, KATHARINA Alexander Consulting Unavailable JAZMYN, KATHARINA Alexander Consulting Unavailable Richard DOOLEY, Dr. Perez Attending Provider Dr. Pedrito Rosario DO Emergency Provider Friend, Marcelina Referring Unavailable Friend, Marcelina Attending Unavailable [facility]acia Primary Care Unavailable Quintero, Shon Referring Unavailable Quintero, Shon Attending Unavailable Elderbrock, Dacia Primary Care Unavailable Oscar Robledo Admitting Unavailable Elderbrock, Dacia Primary Care Unavailable Dacia Shelton Attending Unavailable Oscar Robledo Consulting Unavailable Friend, Marcelina Consulting Unavailable Elders[place], Dacia Primary Care Unavailable Bryan, Son Consulting Unavailable Bryan, Son Admitting Unavailable Koram, Elena Gisela Attending Unavailable Koram, Elena Gisela Consulting Unavailable [facility] Primary Care Unavailable Eunice, Juan Admitting Unavailable Reji Pittman Attending Unavailable Reji Pittman Consulting Unavailable Eunice, Juan Referring Unavailable Paintsil, Murray Consulting Unavailable Kotsonis, Jerome F Consulting Unavailable Eunice, Juan Consulting Unavailable Elderbrock, Dacia Primary Care Unavailable Lucas Wong Attending Unavailable Tannhof, Tresa Primary Care Unavailable Kristin, Marcelina Attending Unavailable Tannhof, Tresa Primary Care Unavailable Pedrito Rosario Attending Unavailable Chris Ramos Attending Unavailable Tannhof, Tresa Primary Care Unavailable Quintero, Shon Attending Unavailable [facility], Dacia Primary Care Unavailable [facility], Dacia Primary Care Unavailable Michi Cope Attending Unavailable Quintero, Shon Attending Unavailable Elderbrock, Dacia Primary Care Unavailable [facility] Primary Care Unavailable Michi Cope Attending Unavailable Tannhof, Tresa Primary Care Unavailable Bryan, Son Attending Unavailable Bryan, Son Referring Unavailable [facility] Primary Care Unavailable Jonathan Denton Attending Unavailable Reji Pittman Consulting Unavailable Eunice, Juan Admitting Unavailable Eunice, Juan Referring Unavailable Paintsil, Murray Consulting Unavailable Kotsonis, Jerome F Consulting Unavailable Eunice, Juan Consulting Unavailable Reji Pittman Attending Unavailable Elderbrock, Dacia Primary Care Unavailable Bryan, Son Consulting Unavailable Bryan, Son Admitting Unavailable Koram, Elena Gisela Attending Unavailable Elderbrock, Dacia Primary Care Unavailable [facility], Son Attending Unavailable White, Sowmya L Consulting Unavailable White, Sowmya L Admitting Unavailable Elderbrock, Dacia Primary Care Unavailable Tereletsky, Dacia Attending Unavailable Tereletsky, Dacia Admitting Unavailable EuniceFarzad Consulting Unavailable Tereletsky, Dacia Consulting Unavailable Oscar Robledo Consulting Unavailable Elderbrock, Dacia Primary Care Unavailable Nicoláseletszena, Dacia Attending Unavailable Oscar Robledo Admitting Unavailable Friend, Marcelina Consulting Unavailable Tereletsky, Dacia Consulting Unavailable Tereletsky, Dacia Referring Unavailable Friend, Marcelina Attending Unavailable Oscar Robledo Attending Unavailable White, Sowmya L Attending Unavailable White, Sowmya L Consulting Unavailable Elderbrock, Dacia Primary Care Unavailable [facility], Son Attending Unavailable White, Sowmya L Consulting Unavailable White, Sowmya L Admitting Unavailable [facility], Son Consulting Unavailable [facility], Son Attending Unavailable Friend, Marcelina Attending Unavailable Friend, Marcelina Consulting Unavailable Michi Forbes Consulting Unavailable Michi Forbes Attending Unavailable [facility] [place] Primary Care Unavailable [facility], Son Attending Unavailable [facility] [place] [facility] Referring Unavailable [facility] [place] [facility] Primary Care Unavailable Elderbrock, Dacia Referring Unavailable [facility], Son Attending Unavailable Elderbrock, Dacia Primary Care Unavailable Elderbrock, Dacia Referring Unavailable [facility], Son Attending Unavailable [facility] [place] [facility] Primary Care Unavailable [facility], Son Attending Unavailable [facility] [place] [facility] Referring Unavailable Ariel Servin Attending Unavailabl e Elderbrock, Dacia Primary Care Unavailable Tereletsky, Dacia Referring Unavailable Elderbrock, Dacia Primary Care Unavailable Jonathan Denton Attending Unavailable Friend, Marcelina Referring Unavailable Friend, Marcelina Consulting Unavailable White, Sowmya L Attending Unavailable Elderbrock, Dacia Primary Care Unavailable Tereletsky, Dacia Admitting Unavailable White, Sowmya L Attending Unavailable EuniceFarzad boone Consulting Unavailable Nicoláseletszena, Dacia Consulting Unavailable [facility] [place] [facility] Primary Care Unavailable EuniceFarzad boone Referring Unavailable Eunice, Farzad Brewer Admitting Unavailable EuniceFarzad boone Attending Unavailable Reji Pittman Consulting Unavailable Paintsil, Murray Consulting Unavailable Jerome Mckeon Consulting Unavailable Marcelina Porras Consulting Unavailable Farzad Dawson Consulting Unavailable Michi Forbes Consulting Unavailable Tresa Sandoval Attending Unavailable Tresa Sandoval Primary Care Unavailable Shon Quintero Attending Unavailable Dacia Acosta Primary Care Unavailable Allergies Allergy Classification Reported Allergen(s) Allergy Type Date of Onset Reaction(s) Facility Aminoketones (3 sources) buPROPion; Translations: [bupropion] Drug Allergy 3 Other: See Comments [facility] Aspirin (2 sources) Aspirin; Translations: [aspirin] Drug Allergy 5 Weal (disorder) [facility] Corticosteroids (1 source) predniSONE Drug Allergy 9 [facility] Opioid Agonists (2 sources) Codeine; Translations: [codeine] Drug Allergy 5 Weal (disorder), Rash [facility] (20 sources) Aspirin; Translations: [ASPIRIN] Drug Allergy 5 Weal (disorder) [facility] Other [facility] (20 sources) buPROPion; Translations: [BUPROPION HCL] Drug Allergy 3 Other: See Comments [facility] Other [facility] (20 sources) Codeine; Translations: [CODEINE] Drug Allergy 5 Rash, Hives, Weal (disorder) [facility] Repository (20 sources) buPROPion; Translations: [BUPROPION] Drug Allergy 3 Other: See Comments, Other (See Comments) [facility] (20 sources) predniSONE; Translations: [PREDNISONE] Drug Allergy 9 [facility] Work Phone: (3 sources) Prednisone Propensity to adverse reactions 9 [facility] Medications Current Medications Medication Drug Class(es) Dates Sig (Normalized) Sig (Original) amoxicillin 875 mg / clavulanate 125 mg oral tablet (5 sources) Penicillin-class Antibacterial Start: 02-04-2025 take 1 tablet by mouth every twelve hours Amoxicillin-Pot Clavulanate 875-125 mg tablet Active 875 mg PO Q12H February 04, 2025 12:00am Start: 10-17-2024 End: 10-24-2024 take 1 tablet by mouth twice daily amoxicillin-pot clavulanate (AUGMENTIN) 875-125 mg per tablet Indications: Acute cystitis without hematuria Take 1 Tablet by mouth Twice a day for 7 days. 14 Tablet 10/17/2024 10/24/2024 Active ascorbic acid 500 mg oral tablet (20 sources) Vitamin C Start: 11-24-2023 End: 07-17-2024 take 1 tablet by mouth once daily ascorbic acid, vitamin C, (VITAMIN C) 500 mg tablet Take 1 tablet by mouth once daily. 30 tablet 5 01/19/2024 Active Comment on above: Take 1 tablet by nish th once daily. benzonatate 200 mg oral capsule (4 sources) Non-narcotic Antitussive Start: 11-13-2024 take 1 capsule by mouth three times daily Benzonatate (TESSALON PERLES) 200 mg capsule Indications: Acute cough Take 1 Capsule by mouth Three times a day. 30 Capsule 11/13/2024 Active busPIRone hydrochloride 10 mg oral tablet (20 sources) Start: 01-23-2025 take 1 tablet by mouth twice daily Buspirone 10 mg tablet Active 10 mg PO TWICE A DAY 60 January 23, 2025 3:38pm Start: 12-10-2024 End: 12-13-2024 take 10 mg by mouth three times daily 10 mg, Oral, THREE TIMES A DAY, First dose on Tue12/10/24 at 0900, Until Discontinued, STAT Start: 07-09-2024 End: 07-10-2024 take 10 mg by mouth three times daily 10 mg, Oral, THREE TIMES A DAY, First dose on Tue07/09/24 at 2115, Until Discontinued, Routine Start: 04-11-2024 End: 01-23-2025 take 1 tablet by mouth four times daily Buspirone 10 mg tablet Discontinued 10 mg PO 4 TIMES DAILY 120 June 19, 2024 4:11pm January 23, 2025 3:42pm take 1 tablet by nish four times daily as needed busPIRone (Buspar) 10 MG tablet Take 10 mg by mouth 4 times daily as needed. 0 Active cephalexin 500 mg oral capsule (20 sources) Cephalosporin Antibacterial Start: 05-07-2024 End: 05-14-2024 take 1 capsule by mouth twice daily cephALEXin (KEFLEX) 500 mg capsule Indications: Acute cystitis with hematuria , Abrasion of foot with infection, unspecified laterality, initial encounter Take 1 capsule by mouth two times a day for 7 days. 14 capsule 0 05/07/2024 05/14/2024 Active Start: 04-24-2024 End: 05-15-2024 take 1 capsule by mouth every six hours Cephalexin 500 mg capsule Discontinued 500 mg PO EVERY 6 HOURS 40 April 24, 2024 12:00am May 15, 2024 1:16pm Start: 03-23-2024 End: 03-30-2024 cephalexin 500 mg oral capsu le Dose : 500 mg = 1 cap(s), [...] days. 28 capsule 0 01/31/2024 02/07/2024 Start: 11-07-2023 End: 12-04-2023 take 1 capsule by mouth three times daily Cephalexin 500 mg capsule Discontinued 500 mg PO THREE TIMES A DAY 15 04November 07, 2023 1:00am December 04, 2023 8:07pm Start: 07-22-2023 End: 07-27-2023 take 1 capsule by mouth every eight hours Cephalexin 500 mg capsule Discontinued 500 mg PO Q8H 15 July 22, 2023 12:00am July 26, 2023 12:00am July 27, 2023 12:05am Start: 07-22-2023 End: 07-27-2023 Start: 05-15-2022 take 500 mg by mouth every six hours Cephalexin Active 500 MG PO EVERY 6 HOURS 40 May 15, 2022 12:00am Start: 03-11-2022 End: 03-21-2022 take 1 capsule by mouth three times daily cephALEXin (KEFLEX) 500 mg capsule Indications: Bacterial skin infection Take 1 capsule by mouth three times daily for 10 days. 30 capsule 0 03/11/2022 03/21/2022 Active Comment on above: Take 1 capsule by [facility] three times daily for 10 days. dextromethorphan hydrobromide 3 mg/ml / promethazine hydrochloride 1.25 mg/ml oral solution (4 sources) Phenothiazine, Uncompetitive A-xnkvtu-H-aspartate Receptor Antagonist, Sigma-1 Agonist Start: 11-09-2024 Promethazine-DM (PROMETHAZINE-DM) 6.25-15 mg/5 mL syrup Indications: Acute non-recurrent maxillary sinusitis Take 5 mL by mouth EVERY 6 TO 8 HOURS PRN for Cough. 118 mL 11/09/2024 Active Cymbalta (4 sources) Serotonin and Norepinephrine Reuptake Inhibitor Start: 06-26-2017 Cymbalta Oral, 0 Refill(s) Start Date: 06/26/17 Status: Ordered Repeat number: 1 Start: 06-26-2017 Cymbalta Oral, 0 Refill(s) Start Date: 06/26/17 Status: Ordered Start: 2013 take 100 mg by mouth once bridget y Duloxetine Active 100 MG PO DAILY 2013 1:00am enteric contrast (will be provided with radiology test) (3 sources) Start: 05-11-2024 End: 05-12-2024 enteric contrast (will be provided with radiology test) Indications: Diarrhea, unspecified type , Kidney stone For CT ABD/PEL W IVCON Routine order Administer, As Directed One Time Only, via Oral, Rectal, both Oral and Rectal, Enteric Tube, Stoma or Indwelling Catheter, Enteric Contrast as designated per enteric contrast guidelines 1 Each 0 05/11/2024 05/12/2024 Active Start: 05-10-2024 End: 05-11-2024 enteric contrast (will be pr ovided with radiology test) For CT ABD/PEL W IVCON Routine order Administer, As Directed One Time Only, via Oral, Rectal, both Oral and Rectal, Enteric Tube, Stoma or Indwelling Catheter, Enteric Contrast as designated per enteric contrast guidelines 1 Each 0 05/10/2024 05/11/2024 Active FeroSul 325 mg (65 mg elemen jero iron) oral tablet (2 sources) Start: 03-23-2024 FeroSul 325 mg (65 mg elemental iron) oral tablet Dose : 325 mg = 1 tab(s), Oral, qDay Start Date: 03/23/24 Status: Ordered Repeat number: 1 Start: 03-23-2024 FeroSul 325 mg (65 mg elemental iron) oral tablet Dose : 325 mg = 1 tab(s), Oral, qDay Start Date: 03/23/24 Status: Ordered Ferrous Sulfate (Ferrous Sulfate 325 Mg (65 Mg Iron) Tablet) 325 mg (65 mg iron) tablet (1 source) Start: 12-04-2023 Ferrous Sulfate (Ferrous Sulfate 325 Mg (65 Mg Iron) Tablet) 325 mg (65 mg iron) tablet Active 325 MG PO DAILY December 04, 2023 1:00am hydroCHLOROthiazide 50 mg / spironolactone 50 mg oral tablet (8 sources) Thiazide Diuretic, Aldosterone Antagonist take 1 tablet by mouth twice daily Spironolacton-Butler chlorothiaz 50-50 mg Tab Take 50 mg by mouth Twice a day. Active iv contrast (will be provided with radiology test) (3 sources) Start: 05-11-2024 End: 05-12-2024 iv contrast (will be provided with radiology test) Indications: Diarrhea, unspecified type , Kidney stone CT ABD/PEL -Inject, intravenously, once for 1 dose.No IV access, insert saline lock prior to the beginning of sedation, infusion, injection of imaging exam. Discontinue saline lock post exam. If Pt. has a central line or IVAD, may access for administration according to line specific nursing protocol. Once exam is complete flush line and de-access according to line specific nursing protocol in the CT contrast administration guidelines link. 1 Each 0 05/11/2024 05/12/2024 Active Start: 05-10-2024 End: 05-11-2024 iv contrast (will be provide d with radiology test) CT ABD/PEL -Inject, intravenously, once for 1 dose.No IV access, insert saline lock prior to the beginning of sedation, infusion, injection of imaging exam. Discontinue saline lock post exam. If Pt. has a central line or IVAD, may access for administration according to line specific nursing protocol. Once exam is complete flush line and de-access according to line specific nursing protocol in the CT contrast administration guidelines link. 1 Each 0 05/10/2024 05/11/2024 Active levoFLOXacin 750 mg oral tablet (2 sources) Quinolone Antimicrobial Start: 06-12-2021 take 750 mg by mouth once daily Levofloxacin Active 750 MG PO DAILY June 12, 2021 12:00am loperamide hydrochloride 2 mg oral capsule (2 sources) Opioid Agonist Start: 02-09-2019 take 2 mg by mouth every four hours as needed Loperamide Active 2 MG PO EVERY 4 HOURS NEEDED February 09, 2019 12:00am methocarbamol 500 mg oral tablet (14 sources) Muscle Relaxant Start: 09-09-2024 End: 12-13-2024 take 1 tablet by mouth twice daily as needed methocarbamoL (ROBAXIN) 500 mg tablet Indications: Chronic bilateral low back pain without sciatica Take 1 Tablet by mouth Twice a day as needed. 20 Tablet 09/09/2024 Active metroNIDAZOLE 500 mg oral tablet (2 sources) Nitroimidazole Antimicrobial Start: 06-12-2021 take 500 mg by mouth three times daily Metronidazole Active 500 MG PO THREE TIMES A DAY June 12, 2021 12:00am midodrine hydrochloride 10 mg oral tablet (11 sources) alpha-Adrenergic Agonist Start: 06-19-2024 take 1 tablet by mouth once daily at bedtime Midodrine 10 mg tablet Active 10 mg PO THREE TIMES A DAY June 19, 2024 12:00am do not give last dose of day after 6PM or within 4 hrs of bedtime Start: 12-07-2023 End: 04-11-2024 take 1 tablet by mouth once daily at bedtime Midodrine 10 mg tablet Discontinued 10 mg PO THREE TIMES A DAY December 07, 2023 12:00am April 11, 2024 9:54pm do not give last dose of day after 6PM or within 4 hrs of bedtime Hold if SBP more than 110 mmHg mupirocin 0.02 mg/mg topical ointment (20 sources) RNA Synthetase Inhibitor Antibacterial Start: 05-07-2024 End: 05-14-2024 mupirocin (BACTROBAN) 2 % ointment Indications: Abrasion of foot with infection, unspecified laterality, initial encounter , Skin lesion Apply 1 application to affected area two times a day for 7 days. 22 g 0 05/07/2024 05/14/2024 Active Start: 03-23-2024 mupirocin 2% t opical ointment Apply 1 darwin, Topical, TID, 72.6 Start Date: 03/23/24 Status: Ordered Repeat number: 1 Start: 01-31-2024 mupirocin (EDIE TROBAN) 2 % ointment Apply to affected area three times a day. 30 g 01/31/2024 Active Start: 11-01-2023 End: 11-06-2023 mupirocin [...] 0 05/21/2022 09/29/2022 Discontinued (Side Effects) Start: 05-21-2022 Mupirocin Acti ve 1 APPLIC TOPICAL THREE TIMES A DAY 16 04May 20, 2022 11:00pm Start: 05-09-2022 End: 05-19-2022 mupirocin (BACTROBAN) 2 % cr eam Apply 1 application to affected area three times daily for 10 days. Location: chin 15 g 0 05/09/2022 05/19/2022 Active Comment on above: Apply 1 application to affected area three times daily for 10 days. Location: chin THREE TIMES A DAY Apply to affected ar ea three times a day for 5 days. naloxone hydrochloride 40 mg/ml nasal spray (14 sources) Opioid Antagonist Start: 07-09-2024 naloxone (NARCAN) 4 mg/actuation nasal spray Indications: Amphetamine-type substance use disorder, severe (CMS/HCC) Prather 1 Prather in nose As directed for 1 dose. Call 911, Administer via Nasal every 3-5 min until patient becomes responsive. Repeat as many times as necessary for pt to become responsive. 2 Each 11 07/09/2024 Active Start: 09-14-2023 End: 09-15-2023 naloxone (Narcan) injection 0.4 mg naloxone (NARCAN) 4 mg/actuation nasal spray (9 sources) Start: 07-09-2024 naloxone (NARC AN) 4 mg/actuation nasal spray Indications: Amphetamine-type substance use disorder, severe Prather 1 Prather in nose As directed for 1 dose. Call 911, Administer via Nasal every 3-5 min until patient becomes responsive. Repeat as many times as necessary for pt to become responsive. 2 Each 07/09/2024 Active Start: 07-09-2024 naloxone (NARC AN) 4 mg/actuation nasal spray Indications: Amphetamine-type substance use disorder, severe (CMS/HCC) Prather 1 Prather in nose As directed for 1 dose. Call 911, Administer via Nasal every 3-5 min until patient becomes responsive. Repeat as many times as necessary for pt to become responsive. 2 Each 07/09/2024 Active 24 hr nicotine 0.875 mg/hr transdermal system (20 sources) Cholinergic Nicotinic Agonist Start: 12-14-2024 apply 1 dose transdermal route once daily nicotine (NICODERM CQ) 21 mg/24 hr patch Indications: Tobacco use disorder 1 Patch by Transdermal route Once Daily. 30 Patch 12/14/2024 Active Start: 12-12-2024 End: 12-13-2024 apply 1 dose transdermal route once daily, then apply 1 dose transdermal route once daily 1 Patch, Transdermal, DAILY, First dose on Tue12/12/24 at 1830, Until Discontinued, Administer over 1 Days, Routine, ([facility]: [facility] [employer] [employer]) Start: 12-07-2023 apply 1 dose transde rmal route every hour nicotine (NICODERM) 21 mg/24 hr Apply 1 Patch as directed as directed. 12/07/2023 Active Start: 12-07-2023 End: 12-26-2023 apply 1 dose transdermal route every twenty-four hours Nicotine 21 mg/24 hr Patch 24 Hour Discontinued 21 mg TD DAILY December 07, 2023 12:00am December 26, 2023 11:05am Start: 09-11-2023 End: 09-15-2023 nicotine polacrilex (Commit) [...] 05-21-2022 nicotine (VINCE DERM) 21 mg/24 hr Start: 05-21-2022 Nicotine Activ e 21 MG TD DAILY May 20, 2022 11:00pm Comment on above: Apply 1 Patch as dir ected as directed. norethindrone 0.35 mg oral tablet (2 sources) Start: 02-29-20 take 1 tablet by mouth once daily Norethindrone (Contraceptive) (Carmen) 0.35 mg tablet Active 0.35 MG PO daily February 28, 2019 12:00am start day 1 of menstrual cycle omeprazole 40 mg delayed release oral capsule (3 sources) Proton Pump Inhibitor take 1 capsule by mouth once daily before breakfast omeprazole (PriLOSEC) [address] capsule Take 40 mg by mouth every morning (before breakfast). Do not crush or chew. 0 Active ondansetron 8 mg disintegrating oral tablet (20 sources) Serotonin-3 Receptor Antagonist Start: 02-09-20 take 1 tablet by mouth every eight hours as needed for nausea and vomiting Ondansetron 8 mg tablet,disintegratin g Active 8 mg PO Q8H as needed for nausea and vomiting February 08, 2025 12:00am Start: 11-13-2024 take 1 tablet by nish th every six hours as needed for nausea and nausea ondansetron (ZOFRAN-ODT) 4 mg disintegrating tablet Indications: Nausea Take 1 Tablet by mouth Every 6 hours as needed. 16 Tablet 11/13/2024 Active Start: 07-08-2024 End: 07-10-2024 take 4 mg intravenously every six hours as needed 4 mg, Intravenous, EVERY 6 HOURS PRN, Starting on 07/08/24 at 1954, Until Tu07/10/24 at 1851, Administer over 2 Minutes, STAT, Nausea, Vomiting Start: 11-03-2023 take 1 tablet by nish th every eight hours as needed ondansetron orally [...] for nausea/vomiting. 20 tablet 5 12/13/2023 Active Start: 02-09-2019 take 4 mg by mouth e very eight hours as needed Ondansetron Active 4 MG PO EVERY 8 HOURS NEEDED February 09, 2019 12:00am Comment on above: Take 1 tablet by nish th every 6 hours as needed for nausea/vomiting. Take 1 tablet by nish th every 8 hours as needed. oxyCODONE hydrochloride 5 mg oral tablet (3 sources) Opioid Agonist Start: take 1 tablet by mouth every six hours as needed for pain Oxycodone 5 mg tablet Active 5 mg PO EVERY 6 HOURS as needed for pain 15 February 08, 2025 pantoprazole 40 mg delayed release oral tablet (20 sources) Proton Pump Inhibitor Start: 025 End: take 1 tablet by mouth once daily pantoprazole (PROTONIX) [address] tablet Indications: Gastroesophageal reflux disease, unspecified whether esophagitis present Take 1 Tablet by mouth Once Daily for 90 days. 30 Tablet 2 11/05/2024 02/03/2025 Active Start: 07-25-2024 End: 10-23-2024 take 1 tablet by mouth once daily pantoprazole (PROTONIX) [address] tablet Indications: Gastroesophageal reflux disease, unspecified whether esophagitis present Take 1 Tablet by mouth Once Daily for 90 days. 30 Tablet 2 07/25/2024 10/23/2024 Active Start: 07-10-2024 End: 07-10-2024 take 40 mg by mouth once daily 40 mg, Oral, DAILY, First dose on Tue07/10/24 at 0900, Until Discontinued, Routine, Do not crush, open, or split Start: 06-06-2024 End: 01-23-2025 take 1 tablet by mouth twice daily Pantoprazole (Protonix) 40 mg tablet,delayed release (DR/EC) Discontinued 40 mg PO TWICE A DAY June 19, 2024 4:11pm January 23, 2025 3:39pm Start: 05-11-2024 End: 06-06-2024 take 1 tablet by mouth once daily Pantoprazole (Protonix) 40 mg tablet,delayed release (DR/EC) Discontinued 40 mg PO DAILY May 11, 2024 12:00am June 06, 2024 2:21pm Start: 09-02-2021 End: 04-11-2024 take 1 tablet by mouth twice daily Pantoprazole (Protonix) 40 mg tablet,delayed release (DR/EC) Discontinued 40 mg PO TWICE A DAY 60 December 07, 2023 12:00am April 11, 2024 9:54pm Comment on above: Take 1 tablet by nish th twice daily before meals. Take on empty stomach, 1/2 hr before meal. perflutren lipid microspheres 1.3 mL in NaCl (PF) 0.9% 10 mL injection (DEFINITY) (15 sources) Start: 08-21-20 End: 11-20-19 perflutren lipid microspheres 1.3 mL in NaCl (PF) 0.9% 10 mL injection (DEFINITY) rifAXIMin 550 mg oral tablet (20 sources) Rifamycin Antibacterial Start: 06-22-20 End: 03-03-20 take 1 tablet by mouth twice daily Rifaximin (Xifaxan) 550 mg tablet Active 550 mg PO TWICE A DAY 60 January 23, 2025 3:38pm topiramate 50 mg oral tablet (20 sources) Start: 04-11-20 24 End: 06-19-20 24 take 2 tablets by mouth once daily Topiramate 50 mg tablet Active 100 mg PO DAILY June 19, 2024 4:11pm Start: 03-23-2024 End: 07-10-2024 topiramate 25 mg oral tablet Dose : 25 mg = 1 tab(s), Oral, BID, # 60 tab(s), 0 Refill(s) Start Date: 03/23/24 Status: Ordered Quantity: 60.0 Unit: tab(s) Repeat number: 1 Start: 05-15-2021 End: 12-04-2023 take 1 tablet by mouth twice daily before mealtime Topiramate 100 mg tablet Discontinued 100 mg PO TWICE A DAY May 20, 2022 12:00am December 04, 2023 8:06pm BEFORE MEALS Start: 12-24-2013 take 25 mg by mouth twice bridget y Topiramate Active 25 MG PO TWICE A DAY December 24, 2013 12:00am take 1 tablet by nish th once daily topiramate (Topamax) 50 MG tablet Take 50 mg by mouth daily. 0 Active traMADol hydrochloride 50 mg oral tablet (14 sources) Opioid Agonist Start: 09-09-2024 End: 12-13-2024 take 1 tablet by mouth every twelve hours as needed traMADoL (ULTRAM) 50 mg tablet Indications: Chronic bilateral low back pain without sciatica Take 1 Tablet by mouth Every 12 hours as needed. 6 Tablet 09/09/2024 Active traZODone hydrochloride 50 mg oral tablet (20 sources) Serotonin Reuptake Inhibitor Start: 01-23-2025 take 1 tablet by mouth at bedtime as needed Trazodone 50 mg tablet Active 50 mg PO AT BEDTIME as needed January 23, 2025 12:00am Start: 12-10-2024 End: 12-13-2024 take 50 mg by mouth at bedtime as needed for sleep 50 mg, Oral, AT BEDTIME PRN, Starting on Tue12/10/24 at 0341, Until Kiersten 12/13/24 at 2059, Sleep, STAT Start: 05-20-2022 End: 05-21-2022 take 200 mg by mouth at bedtime Trazodone Discontinued 200 MG PO AT BEDTIME May 20, 2022 12:00am May 21, 2022 12:10pm Start: 06-23-2021 End: 05-26-2022 take 2 tablets by mouth at bedtime Trazodone 100 mg tablet Discontinued 200 mg PO AT BEDTIME May 20, 2022 12:00am May 21, 2022 12:10pm Start: 08-05-2018 End: 12-04-2023 take 1 tablet by mouth at bedtime Trazodone 100 mg tablet Discontinued 100 mg PO AT BEDTIME 1 May 21, 2022 12:10pm December 04, 2023 8:06pm Comment on above: 200 mg daily at bedt sherry. Take 1 tablet by nish th daily at bedtime. Vitamin C 500 mg oral tablet (2 sources) Start: 03-23-2024 Vitamin C 500 mg oral tablet Dose : 500 mg = 1 tab(s), Oral, qDay Start Date: 03/23/24 Status: Ordered Repeat number: 1 Start: 03-23-2024 Vitamin C 500 mg oral tablet Dose : 500 mg = 1 tab(s), Oral, qDay Start Date: 03/23/24 Status: Ordered Vitamin D3 (13 sources) Start: 05-20-2022 take 1250 ug by mout h every week Vitamin D3 Active 1250 MCG OTHER EVERY WEEK May 19, 2022 11:00pm TAKES ON MODAY BY MOUTH Start: 05-20-2022 take 1250 ug by mouth every we ek Vitamin D3 Active 1250 MCG OTHER EVERY WEEK May 20, 2022 12:00am TAKES ON MODAY BY MOUTH zolpidem tartrate 10 mg oral tablet (4 sources) gamma-Aminobutyric Acid-ergic Agonist Start: 12-23-2014 Ambien 10 mg oral tablet Dose : 10 mg = 1 tab(s), Oral, qHS, PRN as needed for sleep Start Date: 12/23/14 Status: Ordered Repeat number: 1 Start: 12-24-2013 take 5 mg by mouth at bedtime Zolpidem Active 5 MG PO AT BEDTIME December 24, 2013 12:00am (6 sources) Start: 12-04-2023 Start: 05-20-2022 Completed/Discontinued Medications Medication Drug Class(es) Dates Sig (Normalized) Sig (Original) -ORDER CLARIFY- 1 Each (1 source) Start: 07-09-2024 End: 07-10-2024 -ORDER CLARIFY- 1 Each acetaminophen 500 mg oral tablet (4 sources) Start: 12-10-2024 End: 12-13-2024 take 1 tablet by mouth every four hours as needed 500 mg, Oral, EVERY 4 HOURS PRN, Starting on 12/10/24 at 0342, Until Kiersten 12/13/24 at 2058, Pain - see PRN comments, Headache, STAT Start: 12-10-2024 End: 12-13-2024 take 1 tablet by mouth every six hours as needed 650 mg, Oral, EVERY 6 HOURS PRN, Starting on 12/10/24 at 0342, Until Kiersten 12/13/24 at 2058, Fever, temp greater than or equal to 100.5F, STAT Start: 09-10-2023 End: 09-15-2023 take 1 tablet by mouth every six hours as needed for pain and fever acetaminophen (Tylenol) tablet 650 mg 20 ml albumin human, intermediate 250 mg/ml injection (2 sources) Human Serum Albumin Start: 09-10-2023 End: 09-10-2023 albumin human 25 % IV solution 50 g [id number] 200 actuat albuterol 0.09 mg/actuat metered dose inhaler (20 sources) beta2-Adrenergic Agonist Start: 06-06-2024 End: 01-23-2025 Albuterol Sulfate 90 mcg/actuation HFA aerosol inhaler Discontinued 1 NMA INHALATION EVERY 6 HOURS as needed for shortness of breath or wheezing June 19, 2024 4:11pm January 23, 2025 3:07pm Start: 12-04-2023 End: 06-06-2024 Albuterol Sulfate (Ventolin Hfa) 90 mcg/actuation HFA aerosol inhaler Discontinued 2 NMA INHALATION Q4H as needed for shortness of breath or wheezing December 04, 2023 1:00am June 06, 2024 4:43am Start: 12-04-2023 Start: 12-04-2023 take 1 puff(s) by in halation every four hours as needed Albuterol Sulfate (Albuterol Sulfate 90 Mcg/Actuation Aerosol Inhaler) 90 mcg/actuation HFA aerosol inhaler Active 2 PUFF INHALATION EVERY 4 HOURS NEEDED December 04, 2023 1:00am Start: 11-23-2023 take 2 puff(s) by in halation every [...] as needed. 18 g 0 01/11/2022 Active Start: 06-11-2019 End: 07-20-2023 Albuterol Sulfate 1 PUFF inh aler Discontinued 1 - 2 NMA INHALATION EVERY 4 HOURS NEEDED as needed for Sob &/Or Wheezing June 11, 2019 12:00am July 20, 2023 7:59pm Start: 06-11-2019 End: 07-20-2023 Start: 06-11-2019 End: 07-20-2023 take 1 puff(s) by inhalation every four hours as needed Albuterol Sulfate Discontinued 1 - 2 PUFF INHALATION EVERY 4 HOURS NEEDED June 11, 2019 12:00am July 20, 2023 7:59pm Comment on above: Inhale 2 Puffs as in structed every 4 hours as needed. albuterol 0.833 mg/ml / ipratropium bromide 0.167 mg/ml inhalation solution (1 source) Anticholinergic, beta2-Adrenergic Agonist Start: 12-11-19 End: 12-14-19 take 3 mL by inhalation every six hours as needed 3 mL, Inhalation, EVERY 6 HOURS PRN, Starting on 12/10/24 at 0342, Until Kiersten 12/13/24 at 2059, Wheezing, shortness of breath, STAT amoxicillin 500 mg oral tablet (4 sources) Penicillin-class Antibacterial Start: 06-01-20 End: 06-06-20 take 1 tablet by mouth three times daily Amoxicillin 500 mg tablet Discontinued 500 mg PO THREE TIMES A DAY 30 June 01, 2024 12:00am June 06, 2024 4:43am ARIPiprazole 10 mg oral tablet (20 sources) Atypical Antipsychotic Start: 03-23-20 End: 06-06-20 take 1 tablet by mouth once daily Aripiprazole 10 mg tablet Discontinued 10 mg PO DAILY May 17, 2024 12:00am June 06, 2024 4:45am Start: 09-14-2022 End: 12-04-2023 take 1 tablet by mouth once daily Aripiprazole 30 mg tablet Discontinued 30 mg PO DAILY September 14, 2022 1:00am December 04, 2023 8:07pm Start: 05-15-2021 End: 05-10-2022 ARIPiprazole (ABILIFY) 20 mg tablet Start: 02-20-2019 take 15 mg by mouth at bedtime Aripiprazole Active 15 MG PO AT BEDTIME February 20, 2019 9:48am Start: 2013 End: 02-20-2019 take 5 mg by mouth at bedtime Aripiprazole 10 MG table t Discontinued 5 mg PO AT BEDTIME 2013 1:00am February 20, 2019 9:49am Start: 2013 End: 02-20-2019 Start: 2013 End: 02-20-2019 take 5 mg by mouth at bedtime Aripiprazole Discontinue d 5 MG PO AT BEDTIME 2013 1:00am February 20, 2019 9:49am bacitracin zinc 0.5 unt/mg topical ointment (4 sources) Start: 05-15-2024 End: 01-23-2025 Bacitracin Zinc 500 unit/gram Ointment Discontinued 1 NMA TOPICAL TWICE A DAY 1 May 15, 2024 12:00am January 23, 2025 3:07pm Apply to chin wound and BL foot wounds. Avoid picking skin. Please contact the information source for Protocol details. bacitracin 0.5 unt/mg / neomycin 0.0035 mg/mg / polymyxin b 10 unt/mg topical ointment (4 sources) Aminoglycoside Antibacterial, Polymyxin-class Antibacterial Start: 09-14-2023 End: 09-15-2023 yhlsligc-qjhewjgkwl-t olymyxin (Neosporin) ointment Start: 09-13-2023 End: 09-13-2023 mynrealb-preqgbxtzf-vzzmuzji n (Neosporin) ointment brompheniramine maleate 0.4 mg/ml / dextromethorphan hydrobromide 2 mg/ml / pseudoephedrine hydrochloride 6 mg/ml oral solution (8 sources) alpha-Adrenergic Agonist, Uncompetitive I-cpxyhe-A-aspartate Receptor Antagonist, Sigma-1 Agonist Start: 01-11-2022 End: 08-15-2022 take 5-10 mL by mouth every six hours as needed Fbfucdasnyhiycc-Mdmcdomrc-NB (BROMFED DM) 2-30-10 mg/5 mL syrup Take 5-10 ml po q6h prn 120 mL 0 01/11/2022 05/10/2022 Discontinued Comment on above: Take 5-10 ml po q6h prn calcium ascorbate 500 mg oral tablet (8 sources) Start: 12-04-2023 End: 01-23-2025 take 1 tablet by mouth once daily Ascorbate Calcium (Vitamin C) 500 mg tablet Discontinued 500 mg PO DAILY December 04, 2023 1:00am January 23, 2025 3:07pm 100 ml calcium gluconate 20 mg/ml injection (1 source) Start: 12-10-2024 End: 12-13-2024 2 g, Intravenous, DIRECTE D PRN, Starting on Tue12/10/24 at 0342, Until Kiersten 12/13/24 at 2059, Administer over 60 Minutes, STAT, For Calcium less than 7., Other, For Calcium less than 7. cefdinir 300 mg oral capsule (5 sources) Cephalosporin Antibacterial Start: 04-13-2024 End: 05-15-2024 take 1 capsule by mouth twice daily Cefdinir 300 mg capsule Discontinued 300 mg PO TWICE A DAY April 13, 2024 12:00am May 15, 2024 1:16pm start on 04/13/24 cefTRIAXone (2 sources) Cephalosporin Antibacterial Start: 12-10-2024 End: 12-13-2024 take 2 g intrave nously every twenty- four hours 2 g, Intravenous, EVERY 24 HOURS, 5 doses, First dose on Tue12/10/24 at 0336, Last dose on Tue12/14/24 at 0336, Administer over 30 Minutes, STAT Start: 07-09-2024 End: 07-10-2024 take 1 g intravenously every twenty-four hours cefTRIAXone (ROCEPHIN) injection 1 g cholecalciferol 1.25 mg oral capsule (20 sources) Vitamin D Start: 12-26-2023 End: 04-11-2024 take 1 capsule by mouth every week Cholecalciferol (Vitamin D3) 1,250 mcg (50,000 unit) capsule Discontinued 1250 ug PO EVERY WEEK December 26, 2023 12:00am April 11, 2024 9:50pm Start: 08-25-2022 take 1 capsule by [facility] every week cholecalciferol, Vitamin D3, (VITAMIN D3) 1,250 mcg (50,000 unit) cap capsule Take 1 capsule by mouth one time a week. 12 capsule 3 08/25/2022 Active Start: 09-02-2021 take 1 capsule by [facility] every week cholecalciferol, Vitamin D3, (VITAMIN D3) 1,250 mcg (50,000 unit) cap capsule Take 1 capsule by mouth one time a week. 12 capsule 3 09/02/2021 Active Comment on above: Take 1 capsule by [facility] one time a week. cloNIDine hydrochloride 0.1 mg oral tablet (2 sources) Central alpha-2 Adrenergic Agonist Start: 09-10-20 End: 09-15-20 take 1 tablet by mouth every six hours as needed cloNIDine (Catapres) tablet 0.1 mg cyclobenzaprine hydrochloride 10 mg oral tablet (20 sources) Muscle Relaxant Start: 09-14-20 End: 07-20-20 take 1 tablet by mouth three times daily as needed for pain Cyclobenzaprine 10 mg tablet Discontinued 10 mg PO THREE TIMES A DAY as needed for Pain September 14, 2022 1:00am July 20, 2023 7:58pm Start: 01-27-2022 End: 05-10-2022 take 1 tablet by mouth three times daily as needed for pain cyclobenzaprine (FLEXERIL) 10 mg tablet Indications: Chronic midline low back pain with bilateral sciatica Take 1 tablet by mouth three times daily as needed for muscle spasm or pain. 30 tablet 2 01/27/2022 05/10/2022 Discontinued Start: 10-27-2021 [facility] daily as needed for pain cyclobenzaprine (FLEXERIL) 10 mg tablet Indications: Chronic midline low back pain with bilateral sciatica Take 1 tablet by mouth three times daily as needed for muscle spasm or pain. 30 tablet 2 10/27/2021 Active Comment on above: Take 1 tablet by nish three times daily as needed for muscle spasm or pain. 24 hr desvenlafaxine succinate 50 mg extended release oral tablet (20 sources) Serotonin and Norepinephrine Reuptake Inhibitor Start: End: 09-24-2 024 take 1 tablet by mouth once daily Desvenlafaxine Succinate 50 mg tablet extended release 24 hr Discontinued 50 mg PO DAILY April 11, 2024 12:00am June 19, 2024 4:11pm Start: 09-16-2023 End: 09-15-2024 take 1 tablet [...] ER (PRISTIQ) 100 mg 24 hr tablet Start: 02-20-2019 End: 12-04-2023 take 1 tablet by mouth once daily Desvenlafaxine 100 mg tablet extended release 24hr Discontinued 100 mg PO DAILY February 20, 2019 12:00am December 04, 2023 8:07pm End: 07-09-2024 take 0.5 tablet by mouth once daily desvenlafaxine succinate (PRISTIQ) 50 mg tablet Take 50 mg by mouth Once Daily. Take 0.5 tablet daily. 0 07/09/2024 Discontinued (Duplicate medication order) dicyclomine hydrochloride 10 mg oral capsule (9 sources) Anticholinergic Start: 12-07-2023 End: 04-11-2024 Dicyclomine 10 mg Capsule Discontinued 10 mg PO 0730,1130,1630,2200 as needed for abdominal cramps 120 December 07, 2023 12:00am April 11, 2024 9:50pm Start: 12-07-2023 Start: 09-10-2023 End: 09-15-2023 take 1 tablet by mouth every six hours as needed dicyclomine (Bentyl) tablet 20 mg doxepin hydrochloride 10 mg oral capsule (20 sources) Tricyclic Antidepressant Start: 12-01-2017 End: 09-14-2024 take 1 capsule by mouth once daily at bedtime doxepin capsule 10 mg Indications: Insomnia, unspecified type Take 1 capsule by mouth daily at bedtime. 30 capsule 2 12/01/2017 Active Comment on above: Take 1 capsule by [facility] daily at bedtime. doxycycline hyclate 100 mg oral tablet (20 sources) Tetracycline-class Drug Start: 11-09-2024 End: 12-13-2024 take 1 tablet by mouth twice daily doxycycline hyclate (VIBRA-TABS) 100 mg tablet Indications: Acute non-recurrent maxillary sinusitis Take 1 Tablet by mouth Twice a day for 7 days. 14 Tablet 11/09/2024 12/13/2024 Discontinued (Stop taking at discharge) Start: 02-02-2024 End: 02-12-2024 take 1 tablet [...] 14 tablet 0 11/01/2023 11/08/2023 Active Start: 07-22-2023 End: 07-27-2023 take 1 tablet by mouth twice daily Doxycycline Hyclate 100 mg tablet Discontinued 100 mg PO TWICE A DAY 10 July 22, 2023 12:00am July 26, 2023 12:00am July 27, 2023 12:05am Start: 01-27-2023 End: 02-01-2023 take 1 capsule [...] 5 days. Take 1 capsule by mo [facility] twice daily for 5 days. Take 1 tablet by nish two times a day for 7 days. ferrous sulfate 325 mg delayed release oral tablet (20 sources) Start: 07-10-2024 End: 07-10-2024 take 325 mg by mouth once daily 325 mg, Oral, DAILY, First dose on Tue07/10/24 at 0900, Until Discontinued, Routine Start: 12-04-2023 End: 06-19-2024 take 1 tablet by mouth once daily Ferrous Sulfate (Ferosul) 325 mg (65 mg iron) tablet Active 325 mg PO DAILY June 19, 2024 4:11pm Start: 11-24-2023 End: 07-17-2024 take 1 tablet by mouth once daily ferrous sulfate 325 mg (65 mg iron) tablet Take 1 tablet by mouth once daily. 30 tablet 5 01/19/2024 07/17/2024 Active Start: 02-09-2019 take 325 mg by mouth once bridget y Ferrous Sulfate Active 325 MG PO DAILY February 09, 2019 12:00am Comment on above: Take 1 tablet by nish once daily. fluconazole 150 mg oral tablet (1 source) Azole Antifungal Start: 11-13-19 End: 12-14-19 take 1 tablet by mouth once fluconazole (DIFLUCAN) 150 mg tablet Indications: Antibiotic-induced yeast infection Take 1 Tablet by mouth One time only for 1 dose. 1 Tablet 11/13/2024 12/13/2024 Discontinued (Stop taking at discharge) FLUoxetine 20 mg oral capsule (1 source) Serotonin Reuptake Inhibitor Start: 12-11-19 End: 12-14-19 take 20 mg by mouth once daily 20 mg, Oral, DAILY, First dose on Tue12/10/24 at 0900, Until Discontinued, STAT fluticasone propionate 0.05 mg/actuat metered dose nasal spray (20 sources) Corticosteroid Start: 07-10-20 End: 07-10-20 take 1 spray(s) nasal route once daily 1 [place], Each Nostril, DAILY, First dose on Tue07/10/24 at 0900, Until Discontinued, Routine, EACH NOSTRIL Start: 06-06-2024 End: 01-23-2025 Fluticasone Propionate 50 mc g/actuation spray,suspension Discontinued 1 NMA INTRANASAL NEEDED as needed for nasal congestion June 19, 2024 4:11pm January 23, 2025 3:04pm Start: 05-17-2024 End: 05-30-2024 Fluticasone Propionate 50 mc g/actuation spray,suspension Discontinued 1 NMA INTRANASAL Q12H as needed for allergy symptoms May 17, 2024 12:00am May 30, 2024 4:58am Start: 04-20-2024 take 2 spray(s) by out once daily fluticasone (FLONASE) 50 mcg/actuation nasal spray Indications: Seasonal allergic rhinitis due to pollen Use 2 Sprays in each nostril once daily. Rinse mouth after use. 1 Each 5 04/20/2024 Active furosemide 40 mg oral tablet (20 sources) Loop Diuretic Start: 12-06-2023 End: 02-05-2025 take 1 tablet by mouth once daily Furosemide (Lasix) 40 mg tablet Discontinued 40 mg PO DAILY June 19, 2024 4:11pm June 22, 2024 3:17pm start on 04/14/24 Start: 08-21-2021 End: 04-20-2024 take 1 tablet by mouth once daily Furosemide (Lasix) 20 mg tablet Discontinued 20 mg PO DAILY November 05, 2023 1:00am December 04, 2023 8:05pm Comment on above: Take 1 tablet by nihs once daily. gabapentin 300 mg oral capsule (20 sources) Anti-epileptic Agent Start: 12-11-2024 End: 12-13-2024 take 300 mg by mouth twice daily 300 mg, Oral, TWICE A DAY, First dose on Tue12/11/24 at 1230, Until Discontinued, Routine, (WASTE: VIRIDIANA) Start: 03-23-2024 End: 07-10-2024 100 mg, Oral, THREE TIMES A DAY PRN, Starting on Tue07/08/24 at 1956, Until Tue07/10/24 at 1851, Neuropathic pain, Pain scale 1-3 (try PO med first if multiple routes ordered for same pain rating), Pain - see PRN comments, Or for nonverbal patients try least potent medication first., STAT, (WASTE: VIRIDIANA) Start: 07-20-2023 take 1 capsule by mo uth every twelve hours Gabapentin 100 mg capsule Active 100 mg PO Q12H July 20, 2023 12:00am Start: 05-26-2022 End: 10-29-2024 take 1 capsule by mouth twice daily gabapentin (NEURONTIN) 100 mg capsule Indications: Low back pain, unspecified back pain laterality, unspecified chronicity, unspecified whether sciatica present Take 1 capsule by mouth two times a day for 180 days. 60 capsule 5 05/02/2024 10/29/2024 Active Start: 05-21-2022 End: 07-20-2023 Gabapentin 300 mg capsule Discontinued 100 mg PO TWICE A DAY May 21, 2022 12:10pm July 20, 2023 7:57pm Start: 02-09-2022 End: 04-10-2022 take 1 capsule [...] days. 60 capsule 0 12/17/2021 01/16/2022 Active Start: 02-20-2019 End: 05-21-2022 Gabapentin 300 mg capsule Discontinued 400 mg PO TWICE A DAY February 20, 2019 12:00am May 21, 2022 12:10pm Start: 02-20-2019 End: 07-20-2023 Start: 02-20-2019 End: 07-20-2023 take 100 mg by mouth twice daily Gabapentin Discontinu ed 100 MG PO TWICE A DAY May 21, 2022 11:10am July 20, 2023 6:57pm Start: 02-20-2019 take 300 mg by mouth once bridget y Gabapentin Active 300 MG PO DAILY February 20, 2019 12:00am take 3 capsules by m outh twice daily gabapentin (NEURONTIN) 100 mg capsule Take 300 mg by mouth Twice a day. Active Comment on above: Take 1 capsule by mo [facility] twice daily for 30 days. Take 1 capsule by [facility] twice daily for 180 days. gadobenate dimeglumine (MULTIHANCE) injection 20 mL (1 source) Start: 12-13-19 End: 12-13-19 20 mL, Intravenous, Once in imaging, 1 dose, Starting on Tue12/12/24 at 1131, Until Tue12/12/24 at 1131, Routine hydroCHLOROthiazide 25 mg oral tablet (1 source) Thiazide Diuretic Start: 07-09-20 End: 07-10-20 hydroCHLOROthiazide tab 50 mg hydrOXYzine pamoate 25 mg oral capsule (20 sources) Antihistamine Start: 07-09-20 End: 07-09-20 hydrOXYzine pamoate (VISTARIL) cap 25 mg Start: 03-23-2024 End: 03-28-2024 hydrOXYzine pamoate 50 mg or al capsule Dose : 50 mg = 1 cap(s), Oral, QID, X 5 day(s), # 20 cap(s), 0 Refill(s), 03/28/24 6:00:00 PM EDT Start Date: 03/23/24 Stop Date: 03/28/24 Status: Ordered Start: 01-31-2024 take 1 tablet by [facility] every six hours as needed hydrOXYzine HCl (ATARAX) 25 mg tablet Indications: Anxiety with depression Take 1 tablet by mouth every 6 hours as needed for itching/rash. 20 tablet 01/31/2024 Active Start: 11-23-2023 End: 01-12-2024 take 1 tablet by mouth every eight hours as needed hydrOXYzine HCl (ATARAX) 25 mg tablet Take 1 tablet by mouth every 8 hours as needed. 60 tablet 0 12/13/2023 01/12/2024 Active Start: 02-09-2019 Hydroxyzine Hc l Active 25 MG PO NEEDED February 09, 2019 12:00am Start: 04-14-2017 End: 05-10-2022 take 1 capsule by mouth every eight hours as needed hydrOXYzine pamoate (VISTARIL) 50 mg capsule Take 1 capsule by mouth three times daily as needed. 0 04/14/2017 05/10/2022 Discontinued take 1 tablet by nish every twelve hours as needed hydrOXYzine hcl (ATARAX) 25 mg tablet Take 25 mg by mouth Twice a day as needed for Itching. Active Comment on above: Take 1 capsule by mo [facility] three times daily as needed. Take 1 tablet by nish every 8 hours as needed. ibuprofen 600 mg oral tablet (20 sources) Nonsteroidal Anti-inflammatory Drug Start: 10-04-2024 End: 10-04-2024 take 1 dose by mouth once 600 mg, Oral, ONE TIME ONLY, 1 dose, On Kiersten 10/04/24 at 0817, STAT Start: 07-08-2024 End: 07-10-2024 take 1 tablet by mouth every four hours as needed 400 mg, Oral, EVERY 4 HOURS PRN, Starting on 07/08/24 at 1955, Until Tu07/10/24 at 1851, Pain scale 1-3 (try PO med first if multiple routes ordered for same pain rating), Pain - see PRN comments, Or for nonverbal patients try least potent medication first., STAT, - If ordered along with Tylenol for pain 1-3 on scale 1-10, try tylenol first. - If Ibuprofen INEFFECTIVE ALONE and tylenol is ordered, give BOTH ibuprofen and Tylenol. Maximum dose of Ibuprofen is 3.2 grams/day. Start: 01-31-2024 End: 05-07-2024 ibuprofen 600 mg oral tablet Dose : 600 mg = 1 tab(s), Oral, q6h, PRN for pain, Take with food or milk. Start Date: 03/23/24 Status: Ordered Repeat number: 1 Start: 06-12-2021 take 800 mg by mouth every eight hours Ibuprofen Active 800 MG PO Q8H June 11, 2021 11:00pm iopamidol (Isovue-370) 76 % injection 75 mL (2 sources) Start: 09-09-2023 End: 09-09-2023 iopamidol (Isovue-370) 76 % injection 75 mL 1 ml ketorolac tromethamine 30 mg/ml injection (3 sources) Nonsteroidal Anti-inflammatory Drug, Cyclooxygenase Inhibitor Start: 12-10-2024 End: 12-10-2024 15 mg, Intravenous, ONE TIME ONLY, 1 dose, On Mon 25 at 2145, Routine, (WASTE: [facility]) Start: 09-10-2023 End: 09-10-2023 ketorolac (Toradol) injectio n 15 mg L. Acidophilus/Bifid. Animalis 2 billion cell capsule (4 sources) Start: 06-01-2024 End: 06-19-2024 take 2 capsules by mouth once daily L. Acidophilus/Bifid. Animalis 2 billion cell capsule Discontinued 1 NMA PO DAILY 14 June 01, 2024 12:00am June 19, 2024 4:09pm lactobacillus rhamnosus gg [id number] unt oral capsule (1 source) Start: 12-10-2024 End: 12-13-2024 take 1 capsule by mouth twice daily 1 Capsule, Oral, TWICE A DAY, First dose on Tue12/10/24 at 0900, Until Discontinued, STAT lactulose 667 mg/ml oral solution (20 sources) Osmotic Laxative Start: 05-31-2024 End: 02-05-2025 take 10 g by mouth three times daily as needed Lactulose 10 gram/15 mL solution Discontinued 10 g PO THREE TIMES A DAY as needed for stomach upset 2999June 19, 2024 4:11pm February 05, 2025 11:59am Start: 09-10-2023 End: 09-15-2023 lactulose (Chronulac) 10 GM/ 15ML solution 20 g Start: 05-21-2022 End: 07-10-2024 Lactulose 20 gram/30 mL solu tion Discontinued 20 g PO THREE TIMES A DAY 2880 30 October 07, 2023 4:14pm April 11, 2024 9:51pm And adjust the frequency to have him goal of 3 bowel movements per day Start: 05-21-2022 take 30 mL by mouth twice bridget y lactulose (DUPHALAC, CONSTULOSE) 10 gram/15 mL solution TAKE 30 ML BY MOUTH TWICE DAILY 0 05/21/2022 Active take 10 g by mouth e very twenty-four hours as needed lactulose (Chronulac) 10 GM/15ML solution Take 10 g by mouth Daily as needed. 0 Active Comment on above: TAKE 30 ML BY MOUTH TWICE DAILY lurasidone hydrochloride 20 mg oral tablet (20 sources) Atypical Antipsychotic Start: End: 10-15-202 4 take 20 mg by mouth once daily 20 mg, Oral, DAILY, First dose on Tue07/10/24 at 0900, Until Discontinued, Routine 50 ml magnesium sulfate 40 mg/ml injection (1 source) Start: 5 End: 5 2 g, Intravenous, DIRECTED PRN, Starting on 12/10/24 at 0342, Until Kiersten 12/13/24 at 2059, Administer over 8 Hours, STAT, For Magnesium less than or equal to 1.7., Other, For Magnesium less than or equal to 1.7. melatonin 3 mg oral tablet (12 sources) Start: 4 End: 4 melatonin tab 6 mg Start: 03-23-2024 take 1 tablet by nish th at bedtime as needed for sleep Melatonin 5 mg tablet Active 5 mg PO AT BEDTIME as needed for sleep April 11, 2024 12:00am Start: 09-10-2023 End: 09-15-2023 take 3 mg by mouth once daily as needed for sleep 3 mg, Oral, Nightly PRN, sleep, Starting on 09/10/23 at 0547 take 1 tablet by mouth once bridget y melatonin 5 MG tablet Take 5 mg by mouth Nightly. 0 Active metoclopramide 5 mg oral tablet (5 sources) Dopamine-2 Receptor Antagonist Start: 12-28-2023 End: 04-11-2024 take 1 tablet by mouth every six hours Metoclopramide Hcl 5 mg tablet Discontinued 5 mg PO EVERY 6 HOURS 120 December 28, 2023 12:00am April 11, 2024 9:54pm mirtazapine 15 mg disintegrating oral tablet (2 sources) End: 09-15-2023 take 1 tablet by mouth once daily mirtazapine (Remeron Destiney-Tab) 15 MG disintegrating tablet Take 15 mg by mouth Nightly. 0 09/15/2023 Discontinued (Stop taking at discharge) 1 ml morphine sulfate 4 mg/ml injection (8 sources) Opioid Agonist Start: 07-08-2024 End: 07-10-2024 take 3 mg intravenously every six hours as needed 3 mg, Intravenous, EVERY 6 HOURS PRN, Starting on 07/08/24 at 1957, Until Tue07/10/24 at 1851, Pain scale 7-10 (try PO med first if multiple routes ordered for same pain rating), STAT Start: 07-08-2024 End: 07-08-2024 morphine injection 4 mg Start: 09-10-2023 End: 09-15-2023 take 2 mg intravenously every four hours as needed for pain and pain morphine injection 2 mg Start: 09-09-2023 End: 09-09-2023 morphine injection 4 mg nadolol 20 mg oral tablet (20 sources) beta-Adrenergic Ayla Start: 07-22-2023 End: 12-04-2023 Nadolol 20 mg tablet Discontinued 20 mg PO DAILY October 07, 2023 4:14pm December 04, 2023 8:07pm Hold for heart less than 50 or systolic blood pressure less than 100 mmHg. Start: 07-22-2023 End: 12-04-2023 take 1 tablet by mouth once daily Nadolol 20 mg tablet Discontinued 20 mg PO DAILY November 05, 2023 1:00am December 04, 2023 8:07pm nitrofurantoin, macrocrystals 25 mg / nitrofurantoin, monohydrate 75 mg oral capsule (2 sources) Nitrofuran Antibacterial Start: 11-13-2024 End: 12-13-2024 take 1 capsule by mouth twice daily nitrofurantoin, macrocrystal-mono, (MACROBID) 100 mg capsule Indications: Cystitis Take 1 Capsule by mouth Twice a day for 5 days. Indications: inflammation of the bladder 10 Capsule 11/13/2024 12/13/2024 Discontinued (Stop taking at discharge) Start: 11-28-2023 End: 12-05-2023 take 1 capsule by mouth twice daily at mealtime nitrofurantoin monohydrate and macrocrystal (MACROBID) 100 mg capsule Take 1 capsule by mouth two times a day with meals for 7 days. 14 capsule 0 11/28/2023 12/05/2023 Active Comment on above: Take 1 capsule by mo ut two times a day with meals for 7 days. ondansetron ODT (Zofran-ODT) disintegrating tablet 4 mg (2 sources) Start: 09-10-20 End: 09-15-20 take 1 tablet by mouth every eight hours as needed for nausea and vomiting ondansetron ODT (Zofran-ODT) disintegrating tablet 4 mg pantoprazole (ProtoNix) 40 mg in sodium chloride (PF) 0.9 % 10 mL injection (2 sources) Start: 09-10-20 End: 09-15-20 40 mg, IntraVENous, Administer over 2 Minutes, Daily before breakfast, First dose on 09/10/23 at 0700, Reconstitute with 10 ml NS. Vial expires 2 hrs after reconstitution. phenazopyridine hydrochloride 200 mg oral tablet (5 sources) Start: 11-13-19 End: 12-14-19 take 1 tablet by mouth three times daily phenazopyridine (PYRIDIUM) 200 mg tablet Indications: Dysuria Take 1 Tablet by mouth Three times a day for 2 days. 6 Tablet 11/13/2024 12/13/2024 Discontinued (Stop taking at discharge) Start: 06-07-2024 End: 06-19-2024 take 1 tablet by mouth three times daily Phenazopyridine (Pyridium) 200 mg tablet Discontinued 200 mg PO THREE TIMES A DAY June 07, 2024 12:00am June 19, 2024 4:08pm microencapsulated potassium chloride 20 meq extended release oral tablet (5 sources) Start: 12-10-2024 End: 12-13-2024 20 mEq, Oral, DIRECTED PRN, Starting on 12/10/24 at 0342, Until Kiersten 12/13/24 at 2058, Other, For Potassium less than or equal to 3.4., STAT, DO NOT CRUSH DO NOT CRUSH, For Potassium less than or equal to 3.4. Start: 09-15-2023 End: 09-15-2023 potassium chloride (Klor-Con ) packet 40 mEq Start: 09-11-2023 End: 09-11-2023 potassium chloride CR (Klor- Con M10) ER tablet 40 mEq predniSONE 20 mg oral tablet (20 sources) Start: 11-13-2024 End: 12-13-2024 take 2 tablets by mouth once daily, then take 1 tablet by mouth once daily, then take 0.5 tablet by mouth once daily predniSONE (DELTASONE) 20 mg tablet Indications: Acute cough Take 2 Tabs by mouth Once Daily for 3 days, THEN 1 Tablet Once Daily for 2 days, THEN 0.5 Tabs Once Daily for 2 days. 9 Tablet 11/13/2024 12/13/2024 Discontinued (Stop taking at discharge) Start: 11-23-2023 End: 12-02-2023 take 3 tablets by mouth once daily, then take 2 tablets by mouth once daily, then take 1 tablet by mouth once daily predniSONE (DELTASONE) 10 mg tablet Take 3 tablets by mouth once daily for 3 days, THEN 2 tablets once daily for 3 days, THEN 1 tablet once daily for 3 days. 18 tablet 0 11/23/2023 12/02/2023 Active Start: 09-24-2023 End: 10-07-2023 take 1 tablet by mouth once daily Prednisone 20 mg tablet Discontinued 20 mg PO DAILY September 24, 2023 1:00am October 07, 2023 4:11pm Start: 06-11-2019 take 60 mg by mouth once daily at mealtime Prednisone Active 60 MG PO DAILY June 11, 2019 12:00am With food Comment on above: Take 3 tablets by mo uth once daily for 3 days, THEN 2 tablets once daily for 3 days, THEN 1 tablet once daily for 3 days. sodium bicarbonate 650 mg oral tablet (2 sources) Start: 09-11-2023 End: 09-15-2023 sodium bicarbonate tablet 650 mg 125 ml sodium chloride 9 mg/ml prefilled syringe (20 sources) Start: 12-10-2024 End: 12-13-2024 10 mL, Intravenous, EVERY 8 HOURS, First dose on Tue12/10/24 at 0600, Until Discontinued, STAT Start: 12-10-2024 End: 12-13-2024 10 mL, Intravenous, PRN, Sta rting on Tue12/10/24 at 0342, Until Kiersten 12/13/24 at 205, before and after IV push and IV piggyback medications, STAT Start: 09-13-2023 End: 09-15-2023 sodium chloride ([place]) 0.65 % nasal spray 2 spray Start: 09-10-2023 End: 09-10-2023 take 75 mL intravenously every hour 75 mL/hr, IntraVENous, Continuous, Starting on 09/10/23 at 0600, For 13 hours Start: 09-09-2023 End: 09-09-2023 sodium chloride 0.9 % bolus 1,000 mL Start: 08-21-2021 End: 11-20-2022 sodium chloride 0.9 % (flush ) 10 mL (BD POSIFLUSH) spironolactone 25 mg oral tablet (20 sources) Aldosterone Antagonist Start: 12-10-2024 End: 12-13-2024 take 100 mg by mouth once daily 100 mg, Oral, DAILY, First dose on Tue12/10/24 at 0900, Until Discontinued, STAT Start: 07-25-2024 End: 07-20-2025 take 2 tablets by mouth once daily spironolactone 50 mg tablet Indications: Decompensated HCV cirrhosis , Cirrhosis of liver with ascites, unspecified hepatic cirrhosis type Take 2 Tabs by mouth Once Daily for 360 days. 180 Tablet 3 07/25/2024 07/20/2025 Active Start: 07-09-2024 End: 07-10-2024 spironolactone (ALDACTONE) t ab 50 mg Start: 03-23-2024 End: 06-19-2024 take 1 tablet by mouth twice daily Spironolactone 50 mg Tablet Discontinued 50 mg PO TWICE A DAY April 13, 2024 12:00am June 19, 2024 4:11pm Start: 12-06-2023 End: 12-26-2023 Spironolactone 50 mg tablet Discontinued 30 mg PO DAILY December 06, 2023 11:05am December 26, 2023 11:05am Start: 12-06-2023 End: 04-20-2024 take 1 tablet by mouth once daily Spironolactone 100 mg tablet Discontinued 100 mg PO DAILY December 06, 2023 12:00am April 11, 2024 9:54pm Hold if serum potassium more than 5.0. Start: 07-22-2023 End: 12-06-2023 Spironolactone 50 mg tablet Discontinued 75 mg PO DAILY November 05, 2023 1:00am December 06, 2023 11:05am Start: 07-21-2023 End: 04-20-2024 take 1 tablet by mouth once daily Spironolactone 50 mg tablet Discontinued 50 mg PO DAILY July 21, 2023 12:00am July 22, 2023 4:13pm Start: 07-21-2023 End: 12-04-2023 take 75 mg by mouth once daily Spironolactone Disconti nued 75 MG PO DAILY 45 July 22, 2023 3:07pm October 07, 2023 3:14pm Comment on above: Take 1 tablet by nish th once daily. sulfamethoxazole 800 mg / trimethoprim 160 mg oral tablet (11 sources) Dihydrofolate Reductase Inhibitor Antibacterial, Sulfonamide Antimicrobial Start: 06-06-2024 End: 06-06-2024 Sulfamethoxazole-Trime thoprim (Bactrim Ds) 800-160 mg tablet Discontinued 1 {tbl} PO TWICE A DAY 08 04June 06, 2024 12:00am June 06, 2024 2:17pm Start: 05-15-2024 End: 05-31-2024 Sulfamethoxazole-Trimethopri m (Bactrim Ds) 800-160 mg tablet Discontinued 1 {tbl} PO TWICE A DAY May 15, 2024 12:00am May 31, 2024 1:21pm Start: 05-15-2022 take 1 tablet by nish th twice daily Sulfamethoxazole-Trimethoprim (Bactrim D s) 800-160 mg tablet Active 1 TABLET PO TWICE A DAY 15 07May 15, 2022 12:00am Problems Active Problems Problem Classification Problem Date Documented Date Episodic/Chronic Abdominal pain (20 sources) Abdominal pain; Translations: [Unspecified abdominal pain] Onset: 11-18-19 24 06-20-2021 Episodic Alcohol-related disorders (20 sources) Alcoholic cirrhosis; 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] Onset: 07-06-20 24 07-02-2024 Chronic Allergic reactions (1 source) Inflammatory dermatosis; Translations: [Dermatitis, unspecified] Episodic Anxiety disorders (3 sources) Picking own skin; Translations: [Excoriation (skin-picking) disorder] Chronic Bacterial infection; unspecified site (1 source) Methicillin resistant Staphylococcus aureus infection; Translations: [Methicillin resistant Staphylococcus aureus infection, unspecified site] 02-07-2024 Episodic Calculus of urinary tract (18 sources) Kidney stone; Translations: [Calculus of kidney] Onset: 05-10-20 24 04-19-2024 Episodic Cardiac dysrhythmias (9 sources) Bradycardia; Translations: [Bradycardia, unspecified] 11-10-2023 Episodic Chronic ulcer of skin (20 sources) Ulcer of big toe; Translations: [Non-pressure chronic ulcer of other part of left foot with unspecified severity] 07-20-2023 Chronic Coagulation and hemorrhagic disorders (20 sources) Thrombocytopenic disorder; Translations: [Thrombocytopenia, unspecified] Onset: 11-19-19 24 11-19-2023 Chronic Deficiency and other anemia (2 sources) Iron deficiency anemia secondary to blood loss (chronic); Translations: [Iron deficiency anemia secondary to blood loss (chronic)] Onset: 07-11-20 Chronic Deficiency and other anemia (15 sources) Iron deficiency anemia; Translations: [Iron deficiency anemia, unspecified] 07-22-2023 Episodic Disorders of teeth and jaw (20 sources) Dental caries; Translations: [Dental caries, unspecified] 01-09-2019 Episodic Diverticulosis and diverticulitis (20 sources) Diverticulitis; Translations: [Diverticulitis of intestine, part unspecified, without perforation or abscess without bleeding] 06-20-2021 Chronic Esophageal disorders (20 sources) Gastroesophageal reflux disease; Translations: [Gastro-esophageal reflux disease without esophagitis] Onset: 08-24-2008-24-2010 Chronic Fluid and electrolyte disorders (20 sources) Mild dehydration; Translations: [Dehydration] 07-08-2021 Episodic Gastroduodenal ulcer (except hemorrhage) (1 source) Gastric ulcer, unspecified as acute or chronic, without hemorrhage or perforation; Translations: [Gastric ulcer, unspecified as acute or chronic, without hemorrhage or perforation] Onset: 12-20-19 Chronic Hepatitis (20 sources) Chronic viral hepatitis C; Translations: [Chronic hepatitis C] Onset: 08-04-20 18 10-12-2018 Chronic Hepatitis (1 source) Unspecified viral hepatitis C without hepatic coma; Translations: [Unspecified viral hepatitis C without hepatic coma] Onset: 12-20-19 Episodic Intestinal obstruction without hernia (9 sources) Small bowel obstruction; Translations: [Unspecified intestinal obstruction, unspecified as to partial versus complete obstruction] Onset: 09-09-20 23 09-09-2023 Episodic Menopausal disorders (20 sources) Postmenopausal bleeding; Translations: [Postmenopausal bleeding] 02-24-2021 Chronic Mood disorders (20 sources) Major depressive disorder; Translations: [Major depressive disorder, single episode, unspecified] Onset: 04-03-20 07 04-14-2017 Chronic Mycoses (11 sources) Onychomycosis due to dermatophyte ; Translations: [Tinea unguium] Onset: 11-13-1912-07-2023 Episodic Noninfectious gastroenteritis (5 sources) Colitis; Translations: [Noninfective gastroenteritis and colitis, unspecified] Onset: 02-20-2002-04-2025 Episodic Other aftercare (1 source) Admission statuses; Translations: [Encounter for other specified aftercare] Episodic Other connective tissue disease (7 sources) Chronic pain of right foot; Translations: [Pain in right toe(s)] 12-07-2023 Episodic Other connective tissue disease (3 sources) Pain in right toe(s); Translations: [Pain in limb] 12-07-2023 Episodic Other diseases of kidney and ureters (4 sources) Hydroureteronephrosis ; Translations: [Unspecified hydronephrosis] 05-19-2024 Episodic Other diseases of veins and lymphatics (4 sources) Lymphedema of bilateral lower limbs; Translations: [Lymphedema, not elsewhere classified] 06-16-2024 Chronic Other female genital disorders (1 source) History of abnormal cervical Papanicolaou smear ; Translations: [Personal history of other diseases of the female genital tract] 05-10-2024 Episodic Other gastrointestinal disorders (20 sources) Diarrhea; Translations: [Diarrhea, unspecified] 07-08-2021 Episodic Other gastrointestinal disorders (20 sources) Ascites; Translations: [Other ascites] Onset: 07-17-2007-20-2023 Episodic Other gastrointestinal disorders (20 sources) Other ascites; Translations: [Other ascites] Onset: 11-17-1907-20-2023 Episodic Other gastrointestinal disorders (4 sources) Hepatic ascites; Translations: [Other ascites] 05-23-2024 Episodic Other infections; including parasitic (20 sources) H/O: liver disease; Translations: [Personal history of other infectious and parasitic diseases] 05-23-2022 Episodic Other injuries and conditions due to external causes (1 source) Open wound of skin; Translations: [Other injury of unspecified body region, initial encounter] 11-01-2023 Episodic Other liver diseases (20 sources) Cirrhosis of liver; Translations: [Unspecified cirrhosis of liver] Onset: 11-19-1908-27-2022 Chronic Other liver diseases (20 sources) Unspecified cirrhosis of liver; Translations: [Cirrhosis of liver without mention of alcohol] Onset: 11-19-19 Chronic Other liver diseases (1 source) Chronic liver disease; Translations: [Unspecified cirrhosis of liver] 09-28-2024 Chronic Other liver diseases (2 sources) Other cirrhosis of liver; Translations: [Other cirrhosis of liver] Onset: 07-25-20 Chronic Other liver diseases (1 source) Liver disease, unspecified; Translations: [Liver disease, unspecified] Onset: 09-28-19 Chronic Other liver diseases (20 sources) Hepatic encephalopathy; Translations: [Acute and subacute hepatic failure without coma] Onset: 09-01-20 Episodic Other liver diseases (2 sources) Acute and subacute hepatic failure without coma; Translations: [Hepatic encephalopathy] Episodic Other liver diseases (4 sources) Decompensated cirrhosis of liver; Translations: [Hepatic failure, unspecified without coma] 06-27-2024 Episodic Other liver diseases (4 sources) Increased bilirubin level; Translations: [Unspecified jaundice] 05-03-2024 Episodic Other nervous system disorders (1 source) Encephalopathy, unspecified; Translations: [Encephalopathy] Onset: 11-17-19 Chronic Other nervous system disorders (13 sources) Metabolic encephalopathy; Translations: [Metabolic encephalopathy] Onset: 09-02-2009-02-2024 Chronic Other nervous system disorders (1 source) Metabolic encephalopathy; Translations: [Metabolic encephalopathy] Onset: 09-02-20 Chronic Other nervous system disorders (1 source) Other chronic pain; Translations: [Other chronic pain] Onset: 09-01-20 Chronic Other nutritional; endocrine; and metabolic disorders (20 sources) Hyperammonemia; Translations: [Disorder of urea cycle metabolism, unspecified] Onset: 09-02-2005-23-2022 Chronic Other nutritional; endocrine; and metabolic disorders (4 sources) Disorder of urea cycle metabolism, unspecified; 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] Chronic Other nutritional; endocrine; and metabolic disorders (17 sources) Hyperbilirubinemia; Translations: [Other disorders of bilirubin metabolism] 07-20-2023 Chronic Other nutritional; endocrine; and metabolic disorders (2 sources) Other disorders of bilirubin metabolism; Translations: [Jaundice, unspecified, not of ] 07-20-2023 Chronic Other nutritional; endocrine; and metabolic disorders (13 sources) Hypocalcemia; Translations: [Hypocalcemia] Onset: 09-02-2009-02-2024 Chronic Other nutritional; endocrine; and metabolic disorders (4 sources) Ketosis; Translations: [Other specified metabolic disorders] 06-15-2024 Chronic Other screening for suspected conditions (not mental disorders or infectious disease) (20 sources) Patient encounter status; Translations: [Encounter for screening mammogram for malignant neoplasm of breast] Onset: 09-01-20 Episodic Other skin disorders (1 source) Acne vulgaris; Translations: [Acne vulgaris] Episodic Other skin disorders (7 sources) Dystrophia unguium; 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] 12-07-2023 Episodic Other skin disorders (3 sources) Nail dystrophy; Translations: [Other specified diseases of nail] 12-07-2023 Episodic Other skin disorders (2 sources) Skin lesion; Translations: [Disorder of the skin and subcutaneous tissue, unspecified] 01-31-2024 Episodic Other upper respiratory disease (1 source) Allergic rhinitis due to pollen; Translations: [Allergic rhinitis due to pollen] 04-20-2024 Chronic Other upper respiratory disease (1 source) Allergic rhinitis due to pollen; Translations: [Seasonal allergic rhinitis due to pollen] Onset: 04-20-20 Chronic Other upper respiratory infections (16 sources) Acute upper respiratory infection; Translations: [Acute upper respiratory infection, unspecified] Onset: 11-09-19 Episodic Peritonitis and intestinal abscess (6 sources) Primary bacterial peritonitis; Translations: [Spontaneous bacterial peritonitis] Onset: 05-31-2005-30-2024 Episodic Residual codes; unclassified (11 sources) Medication regimen behavior finding; Translations: [Variable compliance with medication therapy] 11-05-2023 Episodic Skin and subcutaneous tissue infections (20 sources) Bacterial infection of skin; Translations: [Local infection of the skin and subcutaneous tissue, unspecified] Onset: 03-23-20 Episodic Spondylosis; intervertebral disc disorders; other back problems (20 sources) Low back pain; Translations: [Lumbago] Onset: 02-12-20 08 02-12-2008 Episodic Substance-related disorders (20 sources) History of drug abuse; Translations: [Other psychoactive substance abuse, in remission] Onset: 11-20-1905-23-2022 Chronic Substance-related disorders (5 sources) Substance abuse; Translations: [Other psychoactive substance use, unspecified, uncomplicated] Onset: 09-11-20 23 09-11-2023 Episodic Superficial injury; contusion (20 sources) Abrasion and/or friction burn of face without infection; Translations: [Abrasion of other part of head, initial encounter] 02-24-2021 Episodic Unclassified (3 sources) If you have further issues before seeing palliative care or pain management Unclassified (1 source) Acute cough; Translations: [Acute cough] Onset: 11-09-19 Unclassified (1 source) Low back pain, unspecified; Translations: [Low back pain, unspecified] Onset: 09-01-20 Urinary tract infections (20 sources) Recurrent urinary tract infection; Translations: [Urinary tract infection, site not specified] Onset: 11-26-1911-26-2023 Episodic Past or Other Problems Problem Classification Problem Date Documented Da te Episodic/Chronic Deficiency and other anemia (11 sources) Iron deficiency anemia, unspecified; Translations: [Iron deficiency anemia, unspecified] Onset: 07-11-2024 07-22-2023 Episodic Deficiency and other anemia (20 sources) Chronic anemia; Translations: [Anemia, unspecified] Onset: 11-19-2023 11-19-2023 Episodic Deficiency and other anemia (1 source) Other iron deficiency anemias; Translations: [Other iron deficiency anemias] Onset: 11-08-2024 Episodic E Codes: Adverse effects of medical drugs (1 source) Adverse effect of unspecified systemic antibiotic, initial encounter; Translations: [Adverse effect of unspecified systemic antibiotic, initial encounter] Onset: 11-13-2024 Episodic Genitourinary symptoms and ill-defined conditions (18 sources) Aryan hematuria; Translations: [Gross hematuria] Onset: 06-04-2024 01-31-2024 Episodic Immunizations and screening for infectious disease (2 sources) At risk of sexually transmitted infection ; Translations: [Contact with and (suspected) exposure to infections with a predominantly sexual mode of transmission] Onset: 05-10-2024 05-10-2024 Episodic Malaise and fatigue (20 sources) Physical deconditioning; Translations: [Other malaise] Onset: 12-10-2011 12-10-2011 Episodic Nausea and vomiting (3 sources) Nausea and vomiting; Translations: [Nausea with vomiting, unspecified] Onset: 05-10-2024 12-13-2023 Episodic Other circulatory disease (20 sources) Retroperitoneal hemorrhage; Translations: [Hemorrhage, not elsewhere classified] Onset: 08-05-2018 08-05-2018 Episodic Other connective tissue disease (20 sources) Myofascial pain; Translations: [Myalgia, other site] Onset: 12-10-2011 12-10-2011 Episodic Other connective tissue disease (13 sources) Cramp; Translations: [Cramp and spasm] Onset: 09-02-2024 09-02-2024 Episodic Other diseases of kidney and ureters (5 sources) Hydronephrosis with renal and ureteral calculous obstruction; Translations: [Hydronephrosis with urinary obstruction due to renal calculus] Onset: 05-15-2024 05-19-2024 Episodic Other female genital disorders (1 source) Personal history of other diseases of the female genital tract; Translations: [History of abnormal cervical Pap smear] Onset: 05-10-2024 Episodic Other gastrointestinal disorders (1 source) Diarrhea, unspecified; Translations: [Diarrhea, unspecified type] Onset: 05-10-2024 Episodic Other gastrointestinal disorders (1 source) Splenomegaly, not elsewhere classified; Translations: [Splenomegaly, not elsewhere classified] Onset: 09-11-2024 Episodic Other liver diseases (2 sources) Hepatic failure, unspecified without coma; Translations: [Hepatic failure, unspecified without coma] Onset: 07-11-2024 Episodic Other lower respiratory disease (1 source) Dyspnea, unspecified; Translations: [Dyspnea, unspecified type] Onset: 11-17-2023 Episodic Other lower respiratory disease (1 source) Shortness of breath; Translations: [Shortness of breath] Onset: 09-28-2024 Episodic Pneumonia (except that caused by tuberculosis or sexually transmitted disease) (20 sources) Community acquired pneumonia; Translations: [Pneumonia, unspecified organism] Onset: 11-19-2023 11-19-2023 Episodic Residual codes; unclassified (20 sources) Insomnia; Translations: [Insomnia, unspecified] Onset: 07-02-2009 07-02-2009 Episodic Residual codes; unclassified (20 sources) Tobacco user; Translations: [Tobacco use] Onset: 04-14-2017 04-14-2017 Episodic Residual codes; unclassified (1 source) Localized edema; Translations: [Localized edema] Onset: 09-28-2024 Episodic Residual codes; unclassified (1 source) Edema, unspecified; Translations: [Edema, unspecified] Onset: 10-03-2024 Episodic Respiratory failure; insufficiency; arrest (adult) (20 sources) Acute hypoxemic and hypercapnic respiratory failure; Translations: [Acute respiratory failure with hypoxia] Onset: 11-19-2023 11-19-2023 Episodic Septicemia (except in labor) (20 sources) Sepsis; Translations: [Sepsis, unspecified organism] Onset: 11-19-2023 11-19-2023 Episodic Sprains and strains (20 sources) Low back strain; Translations: [Strain of muscle, fascia and tendon of lower back, initial encounter] Onset: 12-10-2011 12-10-2011 Episodic Viral infection (3 sources) Viral disease; Translations: [Viral infection, unspecified] Onset: 11-19-2024 Episodic Results Test Name Value Interpretation Reference Range Facility Absolute lymphocyte countOrd ered By: Pedrito Rosario on 02-22-2025 Lymphocytes Auto (Unsp spec) [#/Vol] 1.12 10*3/uL 0.83-4.[address] [facility] Absolute neutrophil countOrd ered By: Pedrito Rosario on 02-22-2025 Neutrophils (Bld) [#/Vol] 4.4 10*3/uL 2.0-7.[address] [facility] Anion gap in Serum or Plasma Ordered By: Pedrito Rosario on 02-22-2025 Anion gap [Moles/Vol] 7 mmol/L 5-15 [facility] Automated lymphocyte count a s percentage of total leukocytesOrdered By: Pedrito Rosario on 02-22-2025 Lymphocytes/100 WBC Auto (Unsp spec) 17.2 % Low 19-[address] [facility] BUN/creatinine ratioOrdered By: Pedrito Rosario on 02-22-2025 Urea nitrogen/Creatinine [Mass ratio] 8.6 mg/mg Low 10-[address] [facility] Basophil percentageOrdered B y: Pedrito Rosario on 02-22-2025 Basophils/100 WBC (Bld) 0.6 % 0-[address] [facility] Bilirubin, totalOrdered By: Pedrito Roasrio on 02-22-2025 Bilirubin [Mass/Vol] 2.14 mg/dL High 0.00-1.30 [facility] CBC W/Diff, Automatedon 05-3 PLT EST MKD DEC Normal ADEQ [facility] Comment on above: Performed By: #### L 100.0100, L500.4050, L501.2450 ####[facility] [address] [place], [address] Carbon dioxide, total [Moles /volume] in Central venous bloodOrdered By: Pedrito Rosario on 02-22-2025 CO2 [Moles/Vol] 22.6 mmol/L 21.0-32.[address] [facility] Chloride assayOrdered By: Ayo Rosario on 02-22-2025 Chloride [Moles/Vol] 106 mmol/L 98-108 [facility] Comprehensive Metabolic Prof ilon 02-22-2025 Albumin [Mass/Vol] 3.3 g/dL Low 3.5-5.0 [facility] Comment on above: Performed By: #### L 100.0100, L500.4050, [id number] ####[facility] [address] [place], [address] Albumin/Globulin [Mass ratio] 0.8 {ratio} Low 0.9-2.[address] [facility] Comment on above: Performed By: #### L 100.0100, L500.4050, [id number] ####[facility] [address] [place], [address] ALK PHOS 189 U/L High 35-[address] [facility] Comment on above: Performed By: #### L 100.0100, L500.4050, [id number] ####[facility] [address] [place], [address] ALT [Catalytic activity/Vol] 56 U/L High <=[address] [facility] Comment on above: Performed By: #### L 100.0100, L500.4050, [id number] ####[facility] [address] [place], [address] AST [Catalytic activity/Vol] 92 U/L High <=[address] [facility] Comment on above: Performed By: #### L 100.0100, L500.4050, [id number] ####[facility] [address] [place], [address] Bilirubin [Mass/Vol] 2.14 mg/dL High 0.00-1.30 [facility] Comment on above: Performed By: #### L 100.0100, L500.4050, [id number] ####[facility] [address] [place], [address] BUN/CRE 8.6 RATIO Low 10-[address] [facility] Comment on above: Performed By: #### L 100.0100, L500.4050, [id number] ####[facility] [address] [place], [address] Calcium [Mass/Vol] 8.8 mg/dL Normal 7.6-11.0 [facility] Comment on above: Performed By: #### L 100.0100, L500.4050, [id number] ####[facility] [address] [place], [address] Chloride [Moles/Vol] 106 mmol/L Normal 98-108 [facility] Comment on above: Performed By: #### L 100.0100, L500.4050, [id number] ####[facility] [address] [place], [address] CO2 [Moles/Vol] 22.6 mmol/L Normal 21.0-32.[address] [facility] Comment on above: Performed By: #### L 100.0100, L500.4050, [id number] ####[facility] [address] [place], [address] Creatinine [Mass/Vol] 0.97 mg/dL Normal 0.70-1.20 [facility] Comment on above: Performed By: #### L 100.0100, L500.4050, [id number] ####[facility] [address] [place], [address] ECRCL 70.88 ml/min Normal 50-[address] [facility] Comment on above: Performed By: #### L 100.0100, L500.4050, [id number] ####[facility] [address] [place], [address] GAP 7 Normal 5-[address] [facility] Comment on above: Performed By: #### L 100.0100, L500.4050, [id number] ####[facility] [address] [place], [address] GFR/1.73 sq M.predicted among non-blacks MDRD (S/P/Bld) [Vol rate/Area] 71 mL/min/{1.73_m2} Normal >[address] [facility] Comment on above: Result Comment: mL/m in/1.73m2 CKD-EPI Creatinine Equation (2020) Performed By: #### L 100.0100, L500.4050, [id number] ####[facility] [address] [place], [address] Globulin (S) [Mass/Vol] 3.9 g/dL Normal 2.2-4.[address] [facility] Comment on above: Performed By: #### L 100.0100, L500.4050, [id number] ####[facility] [address] [place], [address] Glucose [Mass/Vol] 93 mg/dL Normal 70-99 [facility] Comment on above: Performed By: #### L 100.0100, L500.4050, [id number] ####[facility] [address] [place], [address] Potassium [Moles/Vol] 3.4 mmol/L Normal 3.3-5.1 [facility] Comment on above: Performed By: #### L 100.0100, L500.4050, [id number] ####[facility] [address] [place], [address] Sodium [Moles/Vol] 136 mmol/L Normal 133-145 [facility] Comment on above: Performed By: #### L 100.0100, L500.4050, [id number] ####[facility] [address] [place], [address] T PROT 7.2 g/dL Normal 5.9-8.[address] [facility] Comment on above: Performed By: #### L 100.0100, L500.4050, [id number] ####[facility] [address] [place], [address] Urea nitrogen [Mass/Vol] 8 mg/dL Normal 4-[address] [facility] Comment on above: Performed By: #### L 100.0100, L500.4050, [id number] ####[facility] [address] [place], [address] Eosinophil percentageOrdered By: Pedrito Rosario on 02-22-2025 Eosinophils/100 WBC (Bld) 3.8 % 0-[address] [facility] Erythrocyte distribution wid th ratioOrdered By: Pedrito Rosario on 02-22-2025 Erythrocyte distribution width (RBC) [Ratio] 17.1 % High 11.6-14.[address] [facility] Erythrocyte distribution wid th standard deviationOrdered By: Pedrito Rosario on 02-22-2025 Erythrocyte distribution width (RBC) [Ratio] 57.5 fl High 35.1-43.[address] [facility] Glomerular filtration rate ( GFR) estimation/1.73 sq m using serum, plasma, or whole bOrdered By: Pedrito Rosario on 02-22-2025 GFR/1.73 sq M.predicted among non-blacks MDRD (S/P/Bld) [Vol rate/Area] 71 mL/min/{1.73_m2} >[address] [facility] Comment on above: mL/min/1.73m2 CKD-EP I Creatinine Equation (2020) Hematocrit Auto (Bld) [Volum e fraction]Ordered By: Pedrito Rosario on 02-22-2025 Hematocrit (Bld) [Volume fraction] 34.5 % Low 37-[address] [facility] Hemoglobin measurementOrdere d By: Pedrito Rosario on 02-22-2025 Hemoglobin (Bld) [Mass/Vol] 12.0 g/dL 12.0-15.[address] [facility] Immature granulocytes/100 WB C Auto (Bld)Ordered By: Pedrito Rosario on 02-22-2025 Immature granulocytes/100 WBC (Bld) 0.500 % 0.0-0.[address] [facility] Comment on above: IG% - Immature Granu locytes (promyelocytes, myelocytes and metamyelocytes) > 1% indicates that a LEFT SHIFT is Present. Laboratory - Chemistry and C hemistry - challengeOrdered By: Pedrito Rosario on 02-22-2025 AST [Catalytic activity/Vol] 92 U/L High <[address] [facility] Lipaseon 02-22-2025 Lipase [Catalytic activity/Vol] 88 U/L High 13-[address] [facility] Comment on above: Result Comment: My jimenez note:LIPASE revised reference range effective 23.New Lipase methodology. Expected to produce lower valuesthan the previous assay method.NEW Reference Range: 13 - 75 U/L Performed By: #### L 100.0100, L500.4050, L501.2450 ####[facility] [address] [place], [address] Lipase measurementOrdered By : Pedrito Rosario on 02-22-2025 Lipase [Catalytic activity/Vol] 88 U/L High 13-[address] [facility] Comment on above: Please note:LIPASE r evised reference range effective 23. New Lipase methodology. Expected to produce lower values than the previous assay method. NEW Reference Range: 13 - 75 U/L MCV (mean corpuscular volume ) determinationOrdered By: Pedrito Rosario on 02-22-2025 MCV (RBC) [Entitic vol] 93.0 fL 81-[address] [facility] Mean corpuscular hemoglobin (MCH) determinationOrdered By: Pedrito Rosario on 02-22-2025 MCH (RBC) [Entitic mass] 32.3 pg High 27.0-32.[address] [facility] Mean corpuscular hemoglobin concentration (MCHC) determinationOrdered By: Pedrito Rosario on 02-22-2025 MCHC (RBC) [Mass/Vol] 34.8 g/dL 32-36 [facility] Mean platelet volume determi nationOrdered By: Pedrito Rosario on 02-22-2025 Platelet mean volume (Bld) [Entitic vol] 11.1 fL 6.2-12.[address] [facility] Monocyte percentageOrdered B y: Pedrito Rosario on 02-22-2025 Monocytes/100 WBC (Bld) 10.6 % High 0-[address] [facility] Neutrophil percentageOrdered By: Pedrito Rosario on 02-22-2025 Neutrophils/100 WBC (Bld) 67.3 % 47-[address] [facility] Nucleated red blood cell per centageOrdered By: Pedrito Rosario on 02-22-2025 Nucleated RBC/100 WBC (Bld) [Ratio] 0 % 0-[address] [facility] Platelet countOrdered By: Ayo Rosario on 02-22-2025 Platelets (Bld) [#/Vol] 39 10*3/uL Low 150-[address] [facility] Comment on above: RESULTS CALLED TO HEMA COULTER 02/22/25 0031 Robert Nieto.REPORT READ BACK BY SAME. Platelet estimateOrdered By: Pedrito Rosario on 02-22-2025 Platelets LM Ql (Bld) MKD DEC ADEQ [facility] Potassium measurement (mass/ volume)Ordered By: Pedrito Rosario on 02-22-2025 Potassium (Unsp spec) [Mass/Vol] 3.4 mmol/L 3.3-5.[address] [facility] RBC Auto (Bld) [#/Vol]Ordere d By: Pedrito Rosario on 02-22-2025 RBC (Bld) [#/Vol] 3.71 10*6/uL Low 4.2-5.4 [facility] Serum creatinine measurement (mass/volume)Ordered By: Pedrito Rosario on 02-22-2025 Creatinine [Mass/Vol] 0.97 mg/dL 0.70-1.20 [facility] Serum globulin measurementOr dered By: Pedrito Rosario on 02-22-2025 Globulin (S) [Mass/Vol] 3.9 g/dL 2.2-4.[address] [facility] Serum glucose measurement (m ass/volume)Ordered By: Pedrito Rosario on 02-22-2025 Glucose [Mass/Vol] 93 mg/dL 70-99 [facility] Serum or plasma alanine rick otransferase (ALT) measurementOrdered By: Pedrito Rosario on 02-22-2025 ALT [Catalytic activity/Vol] 56 U/L High <[address] [facility] Serum or plasma albumin latrice urement (mass/volume)Ordered By: Pedrito Rosario on 02-22-2025 Albumin [Mass/Vol] 3.3 g/dL Low 3.5-5.0 [facility] Serum or plasma albumin/glob ulin mass ratioOrdered By: Pedrito Rosario on 02-22-2025 Albumin/Globulin [Mass ratio] 0.8 {ratio} Low 0.9-2.[address] [facility] Serum or plasma alkaline minda sphatase measurementOrdered By: Pedrito Rosario on 02-22-2025 ALP [Catalytic activity/Vol] 189 U/L High 35-[address] [facility] Serum or plasma calcium latrice urement (mass/volume)Ordered By: Pedrito Rosario on 02-22-2025 Calcium [Mass/Vol] 8.8 mg/dL 7.6-11.0 [facility] Serum or plasma urea nitroge n measurement (mass/volume)Ordered By: Pedrito Rosario on 02-22-2025 Urea nitrogen [Mass/Vol] 8 mg/dL 4-[address] [facility] Sodium levelOrdered By: Pedrito Rosario on 02-22-2025 Sodium [Moles/Vol] 136 mmol/L 133-145 [facility] [facility] Total proteinOrdered By: Mike Rosario on 02-22-2025 Protein [Mass/Vol] 7.2 g/dL 5.9-8.4 [facility] White blood cell (WBC) count Ordered By: Pedrito Rosario on 02-22-2025 WBC (Bld) [#/Vol] 6.5 10*3/uL 4.4-11.0 [facility] Abdomen/Pelvis without Conto n 02-21-2025 Abdomen/Pelvis without Cont Normal [facility] Chest PA and Lateralon 02-21 Chest PA and Lateral Normal [facility] Emergency Department Summary on 02-21-2025 Emergency Department Summary Normal [facility] Emergency Department Summary on 02-08-2025 Emergency Department Summary Normal [facility] Absolute lymphocyte countOrd ered By: Tresa Sandoval on 02-07-2025 Lymphocytes Auto (Unsp spec) [#/Vol] 1.40 10*3/uL 0.83-4.[address] [facility] Absolute neutrophil countOrd ered By: Tresa Sandoval on 02-07-2025 Neutrophils (Bld) [#/Vol] 4.5 10*3/uL 2.0-7.[address] [facility] Ammoniaon 02-07-2025 Ammonia (P) [Moles/Vol] 91.2 umol/L High [facility] Comment on above: Performed By: #### L 500.4050, L503.5510, L100.0100 ####[facility] [address] [place], [address] Anion gap in Serum or Plasma Ordered By: Tresa Sandoval on 02-07-2025 Anion gap [Moles/Vol] 8 mmol/L 02-07 [facility] Automated lymphocyte count a s percentage of total leukocytesOrdered By: Tresa Sandoval on 02-07-2025 Lymphocytes/100 WBC Auto (Unsp spec) 20.0 % - [facility] BUN/creatinine ratioOrdered By: Tresa Sandoval on 02-07-2025 Urea nitrogen/Creatinine [Mass ratio] 11.1 mg/mg - [facility] Basophil percentageOrdered B y: Tresa Sandoval on 02-07-2025 Basophils/100 WBC (Bld) 0.7 % 0-[address] [facility] Bilirubin, totalOrdered By: Tresa Sandoval on 02-07-2025 Bilirubin [Mass/Vol] 1.77 mg/dL High 0.00-1.30 [facility] CBC W/Diff, Automatedon 01-24 PLT EST MOD DEC Normal ADEQ [facility] Comment on above: Performed By: #### L 500.4050, L503.5510, L100.0100 ####[facility] [address] [place], [address] Carbon dioxide, total [Moles /volume] in Central venous bloodOrdered By: Tresa Sandoval on 02-07-2025 CO2 [Moles/Vol] 19.5 mmol/L Low 21.0-32.[address] [facility] Chloride assayOrdered By: Андрей Sandoval on 02-07-2025 Chloride [Moles/Vol] 108 mmol/L 98-108 [facility] Comprehensive Metabolic Prof ilon 02-07-2025 Albumin [Mass/Vol] 3.2 g/dL Low 3.5-5.0 [facility] Comment on above: Performed By: #### L 500.4050, L503.5510, L100.0100 ####[facility] [address] [place], [address] Albumin/Globulin [Mass ratio] 0.8 {ratio} Low 0.9-2.[address] [facility] Comment on above: Performed By: #### L 500.4050, L503.5510, L100.0100 ####[facility] [address] [place], [address] ALK PHOS 171 U/L High 35-[address] [facility] Comment on above: Performed By: #### L 500.4050, L503.5510, L100.0100 ####[facility] [address] [place], [address] ALT [Catalytic activity/Vol] 79 U/L High <=[address] [facility] Comment on above: Performed By: #### L 500.4050, L503.5510, L100.0100 ####[facility] [address] [place], [address] AST [Catalytic activity/Vol] 103 U/L High <=[address] [facility] Comment on above: Performed By: #### L 500.4050, L503.5510, L100.0100 ####[facility] [address] [place], [address] Bilirubin [Mass/Vol] 1.77 mg/dL High 0.00-1.30 [facility] Comment on above: Performed By: #### L 500.4050, L503.5510, L100.0100 ####[facility] [address] [place], [address] BUN/CRE 11.1 RATIO Normal 10-[address] [facility] Comment on above: Performed By: #### L 500.4050, L503.5510, L100.0100 ####[facility] [address] [place], [address] Calcium [Mass/Vol] 9.1 mg/dL Normal 7.6-11.0 [facility] Comment on above: Performed By: #### L 500.4050, L503.5510, L100.0100 ####[facility] [address] [place], [address] Chloride [Moles/Vol] 108 mmol/L Normal 98-108 [facility] Comment on above: Performed By: #### L 500.4050, L503.5510, L100.0100 ####[facility] [address] [place], [address] CO2 [Moles/Vol] 19.5 mmol/L Low 21.0-32.[address] [facility] Comment on above: Performed By: #### L 500.4050, L503.5510, L100.0100 ####[facility] [address] [place], [address] Creatinine [Mass/Vol] 0.98 mg/dL Normal 0.70-1.20 [facility] Comment on above: Performed By: #### L 500.4050, L503.5510, L100.0100 ####[facility] [address] [place], [address] GAP 8 Normal 5-[address] [facility] Comment on above: Performed By: #### L 500.4050, L503.5510, L100.0100 ####[facility] [address] [place], [address] GFR/1.73 sq M.predicted among non-blacks MDRD (S/P/Bld) [Vol rate/Area] 70 mL/min/{1.73_m2} Normal >[address] [facility] Comment on above: Result Comment: mL/m in/1.73m2 CKD-EPI Creatinine Equation (2020) Performed By: #### L 500.4050, L503.5510, L100.0100 ####[facility] [address] [place], [address] Globulin (S) [Mass/Vol] 3.8 g/dL Normal 2.2-4.[address] [facility] Comment on above: Performed By: #### L 500.4050, L503.5510, L100.0100 ####[facility] [address] [place], [address] Glucose [Mass/Vol] 81 mg/dL Normal 70-99 [facility] Comment on above: Performed By: #### L 500.4050, L503.5510, L100.0100 ####[facility] [address] [place], [address] Potassium [Moles/Vol] 4.0 mmol/L Normal 3.3-5.1 [facility] Comment on above: Performed By: #### L 500.4050, L503.5510, L100.0100 ####[facility] [address] [place], [address] Sodium [Moles/Vol] 135 mmol/L Normal 133-145 [facility] Comment on above: Performed By: #### L 500.4050, L503.5510, L100.0100 ####[facility] [address] [place], [address] T PROT 7.1 g/dL Normal 5.9-8.[address] [facility] Comment on above: Performed By: #### L 500.4050, L503.5510, L100.0100 ####[facility] [address] [place], [address] Urea nitrogen [Mass/Vol] 11 mg/dL Normal 4-[address] [facility] Comment on above: Performed By: #### L 500.4050, L503.5510, L100.0100 ####[facility] [address] [place], [address] Eosinophil percentageOrdered By: Tresa Sandoval on 02-07-2025 Eosinophils/100 WBC (Bld) 4.1 % 0-[address] [facility] Erythrocyte distribution wid th ratioOrdered By: Tresa Sandoval on 02-07-2025 Erythrocyte distribution width (RBC) [Ratio] 16.1 % High 11.6-14.[address] [facility] Erythrocyte distribution wid th standard deviationOrdered By: Tresa Sandoval on 02-07-2025 Erythrocyte distribution width (RBC) [Ratio] 54.2 fl High 35.1-43.[address] [facility] Glomerular filtration rate ( GFR) estimation/1.73 sq m using serum, plasma, or whole bOrdered By: Tresa Sandoval on 02-07-2025 GFR/1.73 sq M.predicted among non-blacks MDRD (S/P/Bld) [Vol rate/Area] 70 mL/min/{1.73_m2} >[address] [facility] Comment on above: mL/min/1.73m2 CKD-EP I Creatinine Equation (2020) Hematocrit Auto (Bld) [Volum e fraction]Ordered By: Tresa Sandoval on 02-07-2025 Hematocrit (Bld) [Volume fraction] 37.0 % 37-[address] [facility] Hemoglobin measurementOrdere d By: Tresa Sandoval on 02-07-2025 Hemoglobin (Bld) [Mass/Vol] 12.9 g/dL 12.0-15.[address] [facility] Immature granulocytes/100 WB C Auto (Bld)Ordered By: Tresa Sandoval on 02-07-2025 Immature granulocytes/100 WBC (Bld) 0.300 % 0.0-0.[address] [facility] Comment on above: IG% - Immature Granu locytes (promyelocytes, myelocytes and metamyelocytes) > 1% indicates that a LEFT SHIFT is Present. Laboratory - Chemistry and C hemistry - challengeOrdered By: Tresa Sandoval on 02-07-2025 AST [Catalytic activity/Vol] 103 U/L High <[address] [facility] MCV (mean corpuscular volume ) determinationOrdered By: Tresasegundo Sandoval on 02-07-2025 MCV (RBC) [Entitic vol] 92.5 fL 81-[address] [facility] Mean corpuscular hemoglobin (MCH) determinationOrdered By: Tresasegundo Sandoval 02-07-2025 MCH (RBC) [Entitic mass] 32.3 pg High 27.0-32.[address] [facility] Mean corpuscular hemoglobin concentration (MCHC) determinationOrdered By: Tresa Sandoval 02-07-2025 MCHC (RBC) [Mass/Vol] 34.9 g/dL 32-36 [facility] Mean platelet volume determi nationOrdered By: Tresasegundo Sandoval 02-07-2025 Platelet mean volume (Bld) [Entitic vol] 12.2 fL High 6.2-12.[address] [facility] Monocyte percentageOrdered B y: Tresa Sandoval on 02-07-2025 Monocytes/100 WBC (Bld) 11.3 % High 0-[address] [facility] Neutrophil percentageOrdered By: Tresa Sandoval on 02-07-2025 Neutrophils/100 WBC (Bld) 63.6 % 47-[address] [facility] Nucleated red blood cell per centageOrdered By: Tresa Sandoval on 02-07-2025 Nucleated RBC/100 WBC (Bld) [Ratio] 0 % 0-[address] [facility] Platelet countOrdered By: Андрей Sandoval on 02-07-2025 Platelets (Bld) [#/Vol] 50 10*3/uL Low 150-[address] [facility] Comment on above: CRITICAL VALUE RODRIGUEZ D TO TONI BRAXTON02/07/25 1357 Ángela Watkins.RESULTS READ BACK BY SAME. Platelet estimateOrdered By: Tresa Sandoval on 02-07-2025 Platelets LM Ql (Bld) MOD DEC ADEQ [facility] Potassium measurement (mass/ volume)Ordered By: Tresa Sandoval on 02-07-2025 Potassium (Unsp spec) [Mass/Vol] 4.0 mmol/L 3.3-5.[address] [facility] RBC Auto (Bld) [#/Vol]Ordere d By: Tresa Sandoval on 02-07-2025 RBC (Bld) [#/Vol] 4.00 10*6/uL Low 4.2-5.4 [facility] Serum creatinine measurement (mass/volume)Ordered By: Tresa Sandoval on 02-07-2025 Creatinine [Mass/Vol] 0.98 mg/dL 0.70-1.20 [facility] Serum globulin measurementOr dered By: Tresa Sandoval on 02-07-2025 Globulin (S) [Mass/Vol] 3.8 g/dL 2.2-4.[address] [facility] Serum glucose measurement (m ass/volume)Ordered By: Tresa Sandoval on 02-07-2025 Glucose [Mass/Vol] 81 mg/dL 70-99 [facility] Serum or plasma alanine rick otransferase (ALT) measurementOrdered By: Tresa Sandoval on 02-07-2025 ALT [Catalytic activity/Vol] 79 U/L High <[address] [facility] Serum or plasma albumin latrice urement (mass/volume)Ordered By: Tresa Sandoval on 02-07-2025 Albumin [Mass/Vol] 3.2 g/dL Low 3.5-5.0 [facility] Serum or plasma albumin/glob ulin mass ratioOrdered By: Tresa Sandoval on 02-07-2025 Albumin/Globulin [Mass ratio] 0.8 {ratio} Low 0.9-2.[address] [facility] Serum or plasma alkaline minda sphatase measurementOrdered By: Tresa Sandoval on 02-07-2025 ALP [Catalytic activity/Vol] 171 U/L High 35-[address] [facility] Serum or plasma calcium latrice urement (mass/volume)Ordered By: Tresa Sandoval on 02-07-2025 Calcium [Mass/Vol] 9.1 mg/dL 7.6-11.0 [facility] Serum or plasma urea nitroge n measurement (mass/volume)Ordered By: Tresa Sandoval on 02-07-2025 Urea nitrogen [Mass/Vol] 11 mg/dL 4-[address] [facility] Sodium levelOrdered By: Maikol Sandoval on 02-07-2025 Sodium [Moles/Vol] 135 mmol/L 133-145 [facility] Total proteinOrdered By: eJremy Sandoval on 02-07-2025 Protein [Mass/Vol] 7.1 g/dL 5.9-8.4 [facility] Venous blood ammonia measure mentOrdered By: Tresa Sandoval on 02-07-2025 Ammonia (P) [Moles/Vol] 91.2 umol/L High 11-[address] [facility] White blood cell (WBC) count Ordered By: Tresa Sandoval on 02-07-2025 WBC (Bld) [#/Vol] 7.0 10*3/uL 4.4-11.0 [facility] Abdomen/Pelvis W IV Cont ONL Yon 02-04-2025 Abdomen/Pelvis W IV Cont ONLY Normal [facility] Absolute lymphocyte countOrd ered By: ED PROVIDER on 02-04-2025 Lymphocytes Auto (Unsp spec) [#/Vol] 1.26 10*3/uL 0.83-4.[address] [facility] Absolute neutrophil countOrd ered By: ED PROVIDER on 02-04-2025 Neutrophils (Bld) [#/Vol] 4.2 10*3/uL 2.0-7.[address] [facility] Anion gap in Serum or Plasma Ordered By: ED PROVIDER on 02-04-2025 Anion gap [Moles/Vol] 8 mmol/L 5-15 [facility] Automated lymphocyte count a s percentage of total leukocytesOrdered By: ED PROVIDER on 02-04-2025 Lymphocytes/100 WBC Auto (Unsp spec) 19.7 % 19-[address] [facility] BUN/creatinine ratioOrdered By: ED PROVIDER on 02-04-2025 Urea nitrogen/Creatinine [Mass ratio] 12.3 mg/mg 10-[address] [facility] Basophil percentageOrdered B y: ED PROVIDER on 02-04-2025 Basophils/100 WBC (Bld) 0.8 % 0-[address] [facility] Bilirubin, totalOrdered By: ED PROVIDER on 02-04-2025 Bilirubin [Mass/Vol] 1.98 mg/dL High 0.00-1.30 [facility] CBC W/Diff, Automatedon 01-24 PLT EST MKD DEC Normal ADEQ [facility] Comment on above: Performed By: #### L 700.6800, L500.4050, L100.0100, L501.2450 ####[facility] [address] [place], [place], [id number] Carbon dioxide, total [Moles /volume] in Central venous bloodOrdered By: ED PROVIDER on 02-04-2025 CO2 [Moles/Vol] 20.4 mmol/L Low 21.0-32.[address] [facility] Chloride assayOrdered By: ED PROVIDER on 02-04-2025 Chloride [Moles/Vol] 107 mmol/L 98-108 [facility] Comprehensive Metabolic Prof ilon 02-04-2025 Albumin [Mass/Vol] 3.2 g/dL Low 3.5-5.0 [facility] Comment on above: Performed By: #### L 700.6800, L500.4050, L100.0100, L501.2450 ####[facility] [address] [place], [address] Albumin/Globulin [Mass ratio] 0.8 {ratio} Low 0.9-2.[address] [facility] Comment on above: Performed By: #### L 700.6800, L500.4050, L100.0100, L501.2450 ####[facility] [address] [place], [address] ALK PHOS 170 U/L High 35-[address] [facility] Comment on above: Performed By: #### L 700.6800, L500.4050, L100.0100, L501.2450 ####[facility] [address] [place], [address] ALT [Catalytic activity/Vol] 94 U/L High <=[address] [facility] Comment on above: Performed By: #### L 700.6800, L500.4050, L100.0100, L501.2450 ####[facility] [address] [place], [address] AST [Catalytic activity/Vol] 121 U/L High <=[address] [facility] Comment on above: Performed By: #### L 700.6800, L500.4050, L100.0100, L501.2450 ####[facility] [address] [place], [address] Bilirubin [Mass/Vol] 1.98 mg/dL High 0.00-1.30 [facility] Comment on above: Performed By: #### L 700.6800, L500.4050, L100.0100, L501.2450 ####[facility] [address] [place], [address] BUN/CRE 12.3 RATIO Normal 10-[address] [facility] Comment on above: Performed By: #### L 700.6800, L500.4050, L100.0100, L501.2450 ####[facility] [address] [place], [address] Calcium [Mass/Vol] 9.1 mg/dL Normal 7.6-11.0 [facility] Comment on above: Performed By: #### L 700.6800, L500.4050, L100.0100, L501.2450 ####[facility] [address] [place], [address] Chloride [Moles/Vol] 107 mmol/L Normal 98-108 [facility] Comment on above: Performed By: #### L 700.6800, L500.4050, L100.0100, L501.2450 ####[facility] [address] [place], [address] CO2 [Moles/Vol] 20.4 mmol/L Low 21.0-32.[address] [facility] Comment on above: Performed By: #### L 700.6800, L500.4050, L100.0100, L501.2450 ####[facility] [address] [place], [address] Creatinine [Mass/Vol] 0.92 mg/dL Normal 0.70-1.20 [facility] Comment on above: Performed By: #### L 700.6800, L500.4050, L100.0100, L501.2450 ####[facility] [address] [place], [address] ECRCL 91.94 ml/min Normal 50-[address] [facility] Comment on above: Performed By: #### L 700.6800, L500.4050, L100.0100, L501.2450 ####[facility] [address] [place], [address] GAP 8 Normal 5-[address] [facility] Comment on above: Performed By: #### L 700.6800, L500.4050, L100.0100, L501.2450 ####[facility] [address] [place], [address] GFR/1.73 sq M.predicted among non-blacks MDRD (S/P/Bld) [Vol rate/Area] 75 mL/min/{1.73_m2} Normal >[address] [facility] Comment on above: Result Comment: mL/m in/1.73m2 CKD-EPI Creatinine Equation (2020) Performed By: #### L 700.6800, L500.4050, L100.0100, L501.2450 ####[facility] [address] [place], [address] Globulin (S) [Mass/Vol] 4.1 g/dL Normal 2.2-4.[address] [facility] Comment on above: Performed By: #### L 700.6800, L500.4050, L100.0100, L501.2450 ####[facility] [address] [place], [address] Glucose [Mass/Vol] 147 mg/dL High 70-99 [facility] Comment on above: Performed By: #### L 700.6800, L500.4050, L100.0100, L501.2450 ####[facility] [address] [place], [address] Potassium [Moles/Vol] 4.1 mmol/L Normal 3.3-5.1 [facility] Comment on above: Performed By: #### L 700.6800, L500.4050, L100.0100, L501.2450 ####[facility] [address] [place], [address] Sodium [Moles/Vol] 136 mmol/L Normal 133-145 [facility] Comment on above: Performed By: #### L 700.6800, L500.4050, L100.0100, L501.2450 ####[facility] [address] [place], [address] T PROT 7.3 g/dL Normal 5.9-8.[address] [facility] Comment on above: Performed By: #### L 700.6800, L500.4050, L100.0100, L501.2450 ####[facility] [address] [place], [address] Urea nitrogen [Mass/Vol] 11 mg/dL Normal 4-[address] [facility] Comment on above: Performed By: #### L 700.6800, L500.4050, L100.0100, L501.2450 ####[facility] [address] [place], [address] Emergency Department Summary on 02-04-2025 Emergency Department Summary Normal [facility] Eosinophil percentageOrdered By: ED PROVIDER on 02-04-2025 Eosinophils/100 WBC (Bld) 3.4 % 0-[address] [facility] Erythrocyte distribution wid th ratioOrdered By: ED PROVIDER on 02-04-2025 Erythrocyte distribution width (RBC) [Ratio] 16.0 % High 11.6-14.[address] [facility] Erythrocyte distribution wid th standard deviationOrdered By: ED PROVIDER on 02-04-2025 Erythrocyte distribution width (RBC) [Ratio] 54.3 fl High 35.1-43.[address] [facility] Glomerular filtration rate ( GFR) estimation/1.73 sq m using serum, plasma, or whole bOrdered By: ED PROVIDER on 02-04-2025 GFR/1.73 sq M.predicted among non-blacks MDRD (S/P/Bld) [Vol rate/Area] 75 mL/min/{1.73_m2} >[address] [facility] Comment on above: mL/min/1.73m2 CKD-EP I Creatinine Equation (2020) Hematocrit Auto (Bld) [Volum e fraction]Ordered By: ED PROVIDER on 02-04-2025 Hematocrit (Bld) [Volume fraction] 37.2 % 37-[address] [facility] Hemoglobin measurementOrdere d By: ED PROVIDER on 02-04-2025 Hemoglobin (Bld) [Mass/Vol] 13.1 g/dL 12.0-15.[address] [facility] Immature granulocytes/100 WB C Auto (Bld)Ordered By: ED PROVIDER on 05-12-2025 Immature granulocytes/100 WBC (Bld) 0.300 % 0.0-0.[address] [facility] Comment on above: IG% - Immature Granu locytes (promyelocytes, myelocytes and metamyelocytes) > 1% indicates that a LEFT SHIFT is Present. Laboratory - Chemistry and C hemistry - challengeOrdered By: ED PROVIDER on 02-04-2025 AST [Catalytic activity/Vol] 121 U/L High <[address] [facility] Lipaseon 02-04-2025 Lipase [Catalytic activity/Vol] 83 U/L High 13-[address] [facility] Comment on above: Result Comment: My jimenez note:LIPASE revised reference range effective 23.New Lipase methodology. Expected to produce lower valuesthan the previous assay method.NEW Reference Range: 13 - 75 U/L Performed By: #### L 700.6800, L500.4050, L100.0100, L501.2450 ####[facility] [address] [place], [address] Lipase measurementOrdered By : ED PROVIDER on 02-04-2025 Lipase [Catalytic activity/Vol] 83 U/L High 13-[address] [facility] Comment on above: Please note:LIPASE r evised reference range effective 23. New Lipase methodology. Expected to produce lower values than the previous assay method. NEW Reference Range: 13 - 75 U/L MCV (mean corpuscular volume ) determinationOrdered By: ED PROVIDER on 02-04-2025 MCV (RBC) [Entitic vol] 93.0 fL 81-[address] [facility] Mean corpuscular hemoglobin (MCH) determinationOrdered By: ED PROVIDER on 02-04-2025 MCH (RBC) [Entitic mass] 32.8 pg High 27.0-32.[address] [facility] Mean corpuscular hemoglobin concentration (MCHC) determinationOrdered By: ED PROVIDER on 02-04-2025 MCHC (RBC) [Mass/Vol] 35.2 g/dL 32-36 [facility] Mean platelet volume determi nationOrdered By: ED PROVIDER on 02-04-2025 Platelet mean volume (Bld) [Entitic vol] 12.0 fL 6.2-12.[address] [facility] Monocyte percentageOrdered B y: ED PROVIDER on 02-04-2025 Monocytes/100 WBC (Bld) 9.7 % 0-[address] [facility] Neutrophil percentageOrdered By: ED PROVIDER on 02-04-2025 Neutrophils/100 WBC (Bld) 66.1 % 47-[address] [facility] Nucleated red blood cell per centageOrdered By: ED PROVIDER on 02-04-2025 Nucleated RBC/100 WBC (Bld) [Ratio] 0 % 0-[address] [facility] Platelet countOrdered By: ED PROVIDER on 02-04-2025 Platelets (Bld) [#/Vol] 49 10*3/uL Low 150-[address] [facility] Comment on above: CRITICAL VALUE RODRIGUEZ D TO JIL CAO (ER)02/04/25 1135 Mariah Cook.RESULTS READ BACK BY SAME. Platelet estimateOrdered By: ED PROVIDER on 02-04-2025 Platelets LM Ql (Bld) MKD DEC ADEQ [facility] Potassium measurement (mass/ volume)Ordered By: ED PROVIDER on 02-04-2025 Potassium (Unsp spec) [Mass/Vol] 4.1 mmol/L 3.3-5.[address] [facility] ,Serum,hCG Quali.on 02-04-2025 HCG, SERUM QUAL Negative Normal [facility] Comment on above: Performed By: #### L 700.6800, L500.4050, L100.0100, L501.2450 ####[facility] [address] [facility] [place], [place], [id number] RBC Auto (Bld) [#/Vol]Ordere d By: ED PROVIDER on 02-04-2025 RBC (Bld) [#/Vol] 4.00 10*6/uL Low 4.2-5.4 [facility] Serum beta-hCG test, qualita tiveOrdered By: ED PROVIDER on 02-04-2025 Beta HCG ( test) Ql Negative [facility] Serum creatinine measurement (mass/volume)Ordered By: ED PROVIDER on 02-04-2025 Creatinine [Mass/Vol] 0.92 mg/dL 0.70-1.20 [facility] Serum globulin measurementOr dered By: ED PROVIDER on 02-04-2025 Globulin (S) [Mass/Vol] 4.1 g/dL 2.2-4.[address] [facility] Serum glucose measurement (m ass/volume)Ordered By: ED PROVIDER on 02-04-2025 Glucose [Mass/Vol] 147 mg/dL High 70-99 [facility] Serum or plasma alanine rick otransferase (ALT) measurementOrdered By: ED PROVIDER on 02-04-2025 ALT [Catalytic activity/Vol] 94 U/L High <[address] [facility] Serum or plasma albumin latrice urement (mass/volume)Ordered By: ED PROVIDER on 02-04-2025 Albumin [Mass/Vol] 3.2 g/dL Low 3.5-5.0 [facility] Serum or plasma albumin/glob ulin mass ratioOrdered By: ED PROVIDER on 02-04-2025 Albumin/Globulin [Mass ratio] 0.8 {ratio} Low 0.9-2.[address] [facility] Serum or plasma alkaline minda sphatase measurementOrdered By: ED PROVIDER on 02-04-2025 ALP [Catalytic activity/Vol] 170 U/L High 35-[address] [facility] Serum or plasma calcium latrice urement (mass/volume)Ordered By: ED PROVIDER on 02-04-2025 Calcium [Mass/Vol] 9.1 mg/dL 7.6-11.0 [facility] Serum or plasma urea nitroge n measurement (mass/volume)Ordered By: ED PROVIDER on 02-04-2025 Urea nitrogen [Mass/Vol] 11 mg/dL 4-19 [facility] [facility] Sodium levelOrdered By: ED Cole GARNER on 02-04-2025 Sodium [Moles/Vol] 136 mmol/L 133-145 [facility] Total proteinOrdered By: ED PROVIDER on 02-04-2025 Protein [Mass/Vol] 7.3 g/dL 5.9-8.4 [facility] White blood cell (WBC) count Ordered By: ED PROVIDER on 02-04-2025 WBC (Bld) [#/Vol] 6.4 10*3/uL 4.4-11.0 [facility] Gastroenterology Visit Repor ton 01-23-2025 Gastroenterology Visit Report Normal [facility] .Auto Diffon 01-17-2025 Basophil, Absolute 0.0 10 3/mcL Normal 0.0-0.3 [facility] Comment on above: Performed By: #### A BSGEL, ANEU, CMP, APTT, MDW, ADIFF, PRO, GFR, CBC, ABOGEL #### [address] [address] Basophils/100 WBC (Bld) 0.7 % Normal 0.0-2.5 [facility] Comment on above: Performed By: #### A BSGEL, ANEU, CMP, APTT, MDW, ADIFF, PRO, GFR, CBC, ABOGEL #### [address] [address] Eosinophil, Absolute 0.2 10 3/mcL Normal 0.0-0.7 [facility] Comment on above: Performed By: #### A BSGEL, ANEU, CMP, APTT, MDW, ADIFF, PRO, GFR, CBC, ABOGEL #### [address] [address] Eosinophils/100 WBC (Bld) 4.1 % Normal 0.0-6.0 [facility] Comment on above: Performed By: #### A BSGEL, ANEU, CMP, APTT, MDW, ADIFF, PRO, GFR, CBC, ABOGEL #### [address] [address] Lymphocyte, Absolute 1.1 10 3/mcL Normal 0.9-4.3 [facility] Comment on above: Performed By: #### A BSGEL, ANEU, CMP, APTT, MDW, ADIFF, PRO, GFR, CBC, ABOGEL #### [address] [address] Lymphocytes/100 WBC (Bld) 18.2 % Low 20.0-40.0 [facility] Comment on above: Performed By: #### A BSGEL, ANEU, CMP, APTT, MDW, ADIFF, PRO, GFR, CBC, ABOGEL #### [address] [address] Monocyte, Absolute 0.7 10 3/mcL Normal 0.1-1.4 [facility] Comment on above: Performed By: #### A BSGEL, ANEU, CMP, APTT, MDW, ADIFF, PRO, GFR, CBC, ABOGEL #### [address] [address] Monocytes/100 WBC (Bld) 11.5 % Normal 2.0-13.0 [facility] Comment on above: Performed By: #### A BSGEL, ANEU, CMP, APTT, MDW, ADIFF, PRO, GFR, CBC, ABOGEL #### [address] [address] Neutrophils/100 WBC (Bld) 65.5 % Normal 50.0-75.0 [facility] Comment on above: Performed By: #### A BSGEL, ANEU, CMP, APTT, MDW, ADIFF, PRO, GFR, CBC, ABOGEL #### [address] [address] .GFRon 01-17-2025 Estimated Glomerular Filtration Rate 74 ml/min/1.73sqm Normal [facility] Comment on above: Result Comment: Stages of Chronic Kidney Disease (CKD) Stage Description eGFR(ml/min/1.73 sq.m.) CKD 1 Normal kidney function or >=90 normal kindney function with possible kidney damage (ex. Proteinuria) CKD 2 Kidney damage with mild loss 60-89 of kidney function CKD 3a Mild to moderate loss of kidney 45-59 function CKD 3b Moderate to severe loss of 30-44 of kindey function CKD 4 Severe loss of kidney function 15-29 CKD 5 Kidney failure <15 Note: (go live 2024) the eGFR calculation was updated to the 2020 CKD-EPI creatinine equation without a race factor to calculate the eGFR results. Performed By: #### A BSGEL, ANEU, CMP, APTT, MDW, ADIFF, PRO, GFR, CBC, ABOGEL #### [address] [address] .MDWon 01-17-2025 Monocyte Distribution Width 19.35 Normal 0.00-20.00 [facility] Comment on above: Result Comment: For ED adult patients suspected of sepsis, MDW<=20.0 does not rule out sepsis or risk of sepsis Performed By: #### A BSGEL, ANEU, CMP, APTT, MDW, ADIFF, PRO, GFR, CBC, ABOGEL #### [address] [address] .NEUABSon 01-17-2025 Neutrophil, Absolute 3.9 10 3/mcL Normal 2.3-8.1 [facility] Comment on above: Performed By: #### A BSGEL, ANEU, CMP, APTT, MDW, ADIFF, PRO, GFR, CBC, ABOGEL #### [address] [address] ABO/Rh (Gel)on 01-17-2025 ABO/Rh Interp Positive Invalid Interpretation Code [facility] Comment on above: Performed By: #### A BSGEL, ANEU, CMP, APTT, MDW, ADIFF, PRO, GFR, CBC, ABOGEL #### [address] [address] ABS (Gel)on 01-17-2025 ABSC Interp (Gel) Negative Normal [facility] Comment on above: Performed By: #### A BSGEL, ANEU, CMP, APTT, MDW, ADIFF, PRO, GFR, CBC, ABOGEL #### [place] [id number] APTTon 01-17-2025 aPTT Coag (Bld) [Time] 39.3 s High 25.0-35.0 [facility] Comment on above: Result Comment: For Heparin anticoagulation therapy, the recommended therapeutic range is: 54-77 seconds (APTT Correlation with Anti-Xa therapeutic range of 0.3-0.7 units/ml). PLEASE REFERENCE THE PHARMACY PROTOCOL FOR DOSING. Performed By: #### A BSGEL, ANEU, CMP, APTT, MDW, ADIFF, PRO, GFR, CBC, ABOGEL #### [address] [address] CBCon 01-17-2025 Erythrocyte distribution width (RBC) [Ratio] 15.3 % Normal 11.5-15.5 [facility] Comment on above: Performed By: #### A BSGEL, ANEU, CMP, APTT, MDW, ADIFF, PRO, GFR, CBC, ABOGEL #### [place] [id number] Hematocrit (Bld) [Volume fraction] 39.3 % Normal 34.0-46.0 [facility] Comment on above: Performed By: #### A BSGEL, ANEU, CMP, APTT, MDW, ADIFF, PRO, GFR, CBC, ABOGEL #### [place] [id number] Hgb 13.6 G/dL Normal 12.0-16.0 [facility] Comment on above: Performed By: #### A BSGEL, ANEU, CMP, APTT, MDW, ADIFF, PRO, GFR, CBC, ABOGEL #### [place] [phone] MCH (RBC) [Entitic mass] 31.9 pg Normal 27.0-33.0 [facility] Comment on above: Performed By: #### A BSGEL, ANEU, CMP, APTT, MDW, ADIFF, PRO, GFR, CBC, ABOGEL #### [place] [id number] MCHC 34.5 G/dL Normal 32.0-36.0 [facility] Comment on above: Performed By: #### A BSGEL, ANEU, CMP, APTT, MDW, ADIFF, PRO, GFR, CBC, ABOGEL #### [place] [phone] MCV (RBC) [Entitic vol] 92.5 fL Normal 80.0-99.0 [facility] Comment on above: Performed By: #### A BSGEL, ANEU, CMP, APTT, MDW, ADIFF, PRO, GFR, CBC, ABOGEL #### [place] [phone] Platelet 51 10 3/mcL Low 150-450 [facility] Comment on above: Performed By: #### A BSGEL, ANEU, CMP, APTT, MDW, ADIFF, PRO, GFR, CBC, ABOGEL #### [place] [phone] Platelet mean volume (Bld) [Entitic vol] 9.8 fL Normal 6.6-10.5 [facility] Comment on above: Performed By: #### A BSGEL, ANEU, CMP, APTT, MDW, ADIFF, PRO, GFR, CBC, ABOGEL #### [address] [address] RBC 4.24 10 6/mcL Normal 4.10-5.30 [facility] Comment on above: Performed By: #### A BSGEL, ANEU, CMP, APTT, MDW, ADIFF, PRO, GFR, CBC, ABOGEL #### [place] [phone] WBC 5.9 10 3/mcL Normal 4.5-10.8 [facility] Comment on above: Performed By: #### A BSGEL, ANEU, CMP, APTT, MDW, ADIFF, PRO, GFR, CBC, ABOGEL #### [address] [address] CMPon 01-17-2025 Albumin Level 2.9 G/dL Low 3.2-4.8 [facility] Comment on above: Performed By: #### A BSGEL, ANEU, CMP, APTT, MDW, ADIFF, PRO, GFR, CBC, ABOGEL #### [place] [phone] Albumin/Globulin [Mass ratio] 0.7 {ratio} Low 0.9-1.6 [facility] Comment on above: Performed By: #### A BSGEL, ANEU, CMP, APTT, MDW, ADIFF, PRO, GFR, CBC, ABOGEL #### [address] [address] ALP [Catalytic activity/Vol] 148 U/L High 38-126 [facility] Comment on above: Performed By: #### A BSGEL, ANEU, CMP, APTT, MDW, ADIFF, PRO, GFR, CBC, ABOGEL #### [address] [address] ALT [Catalytic activity/Vol] 118 U/L High 10-49 [facility] Comment on above: Performed By: #### A BSGEL, ANEU, CMP, APTT, MDW, ADIFF, PRO, GFR, CBC, ABOGEL #### [address] [address] AST [Catalytic activity/Vol] 164 U/L High 8-34 [facility] Comment on above: Performed By: #### A BSGEL, ANEU, CMP, APTT, MDW, ADIFF, PRO, GFR, CBC, ABOGEL #### [address] [address] Bili Total 1.80 mg/dL High 0.20-1.20 [facility] Comment on above: Result Comment: Use of this assay is not recommended for patients undergoing treatment with eltrombopag due to the potential for falsely elevated results. Performed By: #### A BSGEL, ANEU, CMP, APTT, MDW, ADIFF, PRO, GFR, CBC, ABOGEL #### [address] [address] BUN/Creatinine Ratio 9.7 ratio Low 10.0-22.0 [facility] Comment on above: Performed By: #### A BSGEL, ANEU, CMP, APTT, MDW, ADIFF, PRO, GFR, CBC, ABOGEL #### [address] [address] Calcium [Mass/Vol] 9.4 mg/dL Normal 8.7-10.4 [facility] Comment on above: Performed By: #### A BSGEL, ANEU, CMP, APTT, MDW, ADIFF, PRO, GFR, CBC, ABOGEL #### [address] [address] Chloride [Moles/Vol] 106 mmol/L Normal 98-110 [facility] Comment on above: Performed By: #### A BSGEL, ANEU, CMP, APTT, MDW, ADIFF, PRO, GFR, CBC, ABOGEL #### [address] [address] CO2 [Moles/Vol] 25 mmol/L Normal 22-32 [facility] Comment on above: Performed By: #### A BSGEL, ANEU, CMP, APTT, MDW, ADIFF, PRO, GFR, CBC, ABOGEL #### [address] [address] Creatinine [Mass/Vol] 0.93 mg/dL Normal 0.50-1.20 [facility] Comment on above: Result Comment: Test ing performed on GeneTex analyzer using enzymatic creatinine methodology. Performed By: #### A BSGEL, ANEU, CMP, APTT, MDW, ADIFF, PRO, GFR, CBC, ABOGEL #### [address] [address] Electrolyte Balance 7.0 mEq/L Normal 4.0-15.0 [facility] Comment on above: Performed By: #### A BSGEL, ANEU, CMP, APTT, MDW, ADIFF, PRO, GFR, CBC, ABOGEL #### [address] [address] Globulin 4.2 G/dL Normal 2.5-4.2 [facility] Comment on above: Performed By: #### A BSGEL, ANEU, CMP, APTT, MDW, ADIFF, PRO, GFR, CBC, ABOGEL #### [address] [address] Glucose [Mass/Vol] 94 mg/dL Normal 70-110 [facility] Comment on above: Performed By: #### A BSGEL, ANEU, CMP, APTT, MDW, ADIFF, PRO, GFR, CBC, ABOGEL #### [address] [address] Potassium [Moles/Vol] 4.4 mmol/L Normal 3.5-5.0 [facility] Comment on above: Performed By: #### A BSGEL, ANEU, CMP, APTT, MDW, ADIFF, PRO, GFR, CBC, ABOGEL #### [address] [address] Sodium [Moles/Vol] 138 mmol/L Normal 136-145 [facility] Comment on above: Performed By: #### A BSGEL, ANEU, CMP, APTT, MDW, ADIFF, PRO, GFR, CBC, ABOGEL #### [address] [address] Total Protein 7.1 G/dL Normal 5.7-8.2 [facility] Comment on above: Performed By: #### A BSGEL, ANEU, CMP, APTT, MDW, ADIFF, PRO, GFR, CBC, ABOGEL #### [address] [address] Urea nitrogen [Mass/Vol] 9.0 mg/dL Normal 8.0-22.0 [facility] Comment on above: Performed By: #### A BSGEL, ANEU, CMP, APTT, MDW, ADIFF, PRO, GFR, CBC, ABOGEL #### [address] [address] LABORATORYOrdered By: Israel Narvaez on 01-17-2025 ABO and Rh group Nom (Bld) Blood group A Rh(D) positive Invalid Interpretation Code AH BB Auto SS Blood group antibody screen Ql Negative ABSC (01/17/25 3:04 PM) Normal AH BB Auto SS LABORATORYOrdered By: SYSTEM SYSTEM on 01-17-2025 Albumin BCP dye [Mass/Vol] 2.9 G/dL Low 3.2 - 4.8 G/dL ADM SS Albumin/Globulin [Mass ratio] 0.7 {ratio} Low 0.9 - 1.6 ratio AH ADM SS ALP [Catalytic activity/Vol] 148 U/L High 38 - 126 U/L AH ADM SS ALT No additional P-5'-P [Catalytic activity/Vol] 118 U/L High 10 - 49 U/L AH ADM SS aPTT Coag (Bld) [Time] 39.3 s High 25.0 - 35.0 seconds AH [facility] SS Comment on above: Interpretive Data: F or Heparin anticoagulation therapy, the recommended therapeutic range is: 54-77 seconds (APTT Correlation with Anti-Xa therapeutic range of 0.3-0.7 units/ml). PLEASE REFERENCE THE PHARMACY PROTOCOL FOR DOSING. AST [Catalytic activity/Vol] 164 U/L High 8 - 34 U/L AH ADM SS Basophils (Bld) [#/Vol] 0.0 103/mcL Normal 0.0 - 0.3 10^3/mcL AH Workflow SS Basophils/100 WBC (Bld) 0.7 % Normal 0.0 - 2.5 % AH Workflow SS Bilirubin [Mass/Vol] 1.80 mg/dL High 0.20 - 1.20 mg/dL AH ADM SS Comment on above: Interpretive Data: U se of this assay is not recommended for patients undergoing treatment with eltrombopag due to the potential for falsely elevated results. Calcium [Mass/Vol] 9.4 mg/dL Normal 8.7 - 10. 4 mg/dL AH ADM SS Chloride [Moles/Vol] 106 mmol/L Normal 98 - 110 mEq/L AH ADM SS CO2 [Moles/Vol] 25 mmol/L Normal 22 - 32 mEq/L AH ADM SS Creatinine [Mass/Vol] 0.93 mg/dL Normal 0.50 - 1.20 mg/dL AH ADM SS Comment on above: Interpretive Data: T esting performed on GeneTex analyzer using enzymatic creatinine methodology. Electrolyte Balance 7.0 mEq/L Normal 4.0 - 15 .0 mEq/L ADM SS Eosinophils (Bld) [#/Vol] 0.2 103/mcL Normal 0.0 - 0.7 10^3/mcL Workflow SS Eosinophils/100 WBC (Bld) 4.1 % Normal 0.0 - 6.0 % Workflow SS Erythrocyte distribution width (RBC) [Ratio] 15.3 % Normal 11.5 - 15.5 % Workflow SS Estimated Glomerular Filtration Rate 74 ml/min/1.73sqm Invalid Interpretation Code AH ADM SS Comment on above: Interpretive Data: Stages of Chronic Kidney Disease (CKD) Stage Description eGFR(ml/min/1.73 sq.m.) CKD 1 Normal kidney function or >=90 normal kindney function with possible kidney damage (ex. Proteinuria) CKD 2 Kidney damage with mild loss 60-89 of kidney function CKD 3a Mild to moderate loss of kidney 45-59 function CKD 3b Moderate to severe loss of 30-44 of kindey function CKD 4 Severe loss of kidney function 15-29 CKD 5 Kidney failure <15 Note: (go live 2024) the eGFR calculation was updated to the 2020 CKD-EPI creatinine equation without a race factor to calculate the eGFR results. Globulin 4.2 G/dL Normal 2.5 - 4.2 G/dL AH ADM SS Glucose [Mass/Vol] 94 mg/dL Normal 70 - 110 mg/dL AH ADM SS Hematocrit (Bld) [Volume fraction] 39.3 % Normal 34.0 - 46.0 % AH Workflow SS Hemoglobin (Bld) [Mass/Vol] 13.6 G/dL Normal 12.0 - 16.0 G/dL AH Workflow SS Lymphocytes (Bld) [#/Vol] 1.1 103/mcL Normal 0.9 - 4.3 10^3/mcL AH Workflow SS Lymphocytes/100 WBC (Bld) 18.2 % Low 20.0 - 40.0 % AH Workflow SS MCH (RBC) [Entitic mass] 31.9 pg Normal 27.0 - 33.0 pg AH Workflow SS MCHC 34.5 G/dL Normal 32.0 - 36.0 G/dL AH Workflow SS MCV (RBC) [Entitic vol] 92.5 fL Normal 80.0 - 99.0 fL AH Workflow SS Monocyte distribution width Auto (Bld) [Entitic vol] 19.35 1 Normal 0.00 - 20.00 Workflow SS Comment on above: Result Comment: For ED adult patients suspected of sepsis, MDW<=20.0 does not rule out sepsis or risk of sepsis Monocytes (Bld) [#/Vol] 0.7 103/mcL Normal 0.1 - 1.4 10^3/mcL AH Workflow SS Monocytes/100 WBC (Bld) 11.5 % Normal 2.0 - 13.0 % AH Workflow SS Neutrophils (Bld) [#/Vol] 3.9 103/mcL Normal 2.3 - 8.1 10^3/mcL AH Workflow SS Neutrophils/100 WBC (Bld) 65.5 % Normal 50.0 - 75.0 % AH Workflow SS Platelet mean volume (Bld) [Entitic vol] 9.8 fL Normal 6.6 - 10.5 fL AH Workflow SS Platelets (Bld) [#/Vol] 51 103/mcL Low 150 - 450 10^3/mcL AH Workflow SS Potassium [Moles/Vol] 4.4 mmol/L Normal 3.5 - 5.0 mEq/L AH ADM SS Protein [Mass/Vol] 7.1 G/dL Normal 5.7 - 8.2 G/dL ADM SS PT Coag (PPP) [Time] 17.9 s High 9.0 - 1 4.4 seconds [facility] SS Comment on above: Interpretive Data: E ffective 04/09/08, Protime results may be affected by some antibiotics (i.e. Ciprofloxacin, Azithromycin, Bactrim) which may potentiate the action of oral anticoagulants, with further increases in Protime/INR. PT International Ratio 1.6 ratio Invalid Interpretation Code [facility] SS Comment on above: Interpretive Data: Anna plata [employer] (CHEST, 1991, 102:312S-25S) recommended therapeutic range for oral anticoagulant therapy is: LOW RISK: Prophylaxis of venous thrombosis INR: 2.0-3.0 Treatment of pulmonary embolism 2.0-3.0 Prevention of systemic embolism 2.0-3.0 HIGH RISK: Mechanical prosthetic valves 2.5-3.5 RBC (Bld) [#/Vol] 4.24 106/mcL Normal 4.10 - 5.3 0 10^6/mcL Workflow SS Sodium [Moles/Vol] 138 mmol/L Normal 136 - 145 mEq/L ADM SS Urea nitrogen [Mass/Vol] 9.0 mg/dL Normal 8.0 - 22.0 mg/dL ADM SS Urea nitrogen/Creatinine [Mass ratio] 9.7 ratio Low 10.0 - 22.0 ratio ADM SS WBC (Bld) [#/Vol] 5.9 103/mcL Normal 4.5 - 10.8 10^3/mcL Workflow SS PROon 01-17-2025 INR Coag (PPP) [Relative time] 1.6 {INR} Normal [facility] Comment on above: Result Comment: [employer] (CHEST, 1991, 102:312S-25S) recommended therapeutic range for oral anticoagulant therapy is: LOW RISK: Prophylaxis of venous thrombosis INR: 2.0-3.0 Treatment of pulmonary embolism 2.0-3.0 Prevention of systemic embolism 2.0-3.0 HIGH RISK: Mechanical prosthetic valves 2.5-3.5 Performed By: #### A BSGEL, ANEU, CMP, APTT, MDW, ADIFF, PRO, GFR, CBC, ABOGEL #### [facility] [address] [place] [id number] PT Coag (PPP) [Time] 17.9 s High 9.0-14.4 [facility] Comment on above: Result Comment: Effe ctive 04/09/08, Protime results may be affected by some antibiotics (i.e. Ciprofloxacin, Azithromycin, Bactrim) which may potentiate the action of oral anticoagulants, with further increases in Protime/INR. Performed By: #### A BSGEL, ANEU, CMP, APTT, MDW, ADIFF, PRO, GFR, CBC, ABOGEL #### [facility] [address] [place] [id number] XR CHEST 1 VIEWon 01-17-2025 XR CHEST 1 VIEW ORIGINAL EXAMINATION: ONE XRAY VIEW OF THE CHEST01/17/2025 3:31 pm XR Chest portable upright COMPARISON: None HISTORY: ORDERING SYSTEM PROVIDED HISTORY: Reason for Exam: SOB, hx of cirrhosis, FINDINGS: No suspicious nodule, acute infiltrate, consolidation,mass, pneumothorax, pleural fluid, or vascular congestion is seen. Heart size and mediastinal contours are within normal limits for age and projection. No acute skeletal abnormality. IMPRESSION: No acute cardiopulmonary process. Interpreted by: Daily Hayes MD Preliminary Report By: Daily Hayes MD Electronically signed By Daily Hayes MD Dictated Date: 01/17/2025 3:36:54 PM Prelim Date: 01/17/2025 3:37:07 PM Sign Date: 01/17/2025 3:37:07 PM Ordering Provider: ARIANNE Lagos [facility] Breast - bilateral Viewso n 12-19-2024 [place] [address] Radiology PATIENT NAME: Carolina Hightower MR#: [id number] PROCEDURE DATE: 12/18/2024 ROOM#: ORDERING PHYS: Self Referral EXAM: MAMMO SCREENING (3D) BILATERAL performed 12/18/2024. HISTORY: . Screening. No family history COMPARISON: New baseline TECHNIQUE: C-view and CC and MLO tomosynthesis views were obtained. CAD (Computer-Aided Diagnosis) was incorporated in evaluation of this examination. DENSITY: Category C: Heterogeneously dense breasts, which may obscure small masses. FINDINGS: Left breast: Asymmetry left breast cc projection on the posterior nipple line posterior depth Right breast: No dominant mass or suspicious calcifications. No suspicious skin or nipple changes. IMPRESSION: Left breast asymmetry. BI-RADS: Category 0: Incomplete; Additional imaging evaluation is needed RECOMMENDATION: 1. Additional imaging evaluation beginning with mammography followed by ultrasound if necessary is recommended. A negative mammogram should not prevent continued clinical management of any suspicious clinical finding or palpable abnormality. Patient information entered into a reminder system with a target due date for the next mammogram. Location of Performed Examination [facility] [address] [place] [address] THIS IS AN ELECTRONICALLY VERIFIED REPORT 12/19/2024 10:18 AM: MD Oscar Purdy MD dm TD: 12/19/2024 JOB #: [id number] Radiology Page 1 of 1 COPY [facility] Breast - bilateral ViewsO rdered By: Oscar Real on 12-19-2024 [facility] Work Phone: [facility] Breast - bilateral Viewso n 12-18-2024 Radiology Study observation (narrative) [facility] Body Fluid Cultureon 025 Bacteria identified Cx Nom (Body fld) No Growth - Preliminary No growth. [facility] Microscopic observation Gram stain Nom (Unsp spec) Rare WBC'S. No organisms seen. [facility] CBCon 12-13-2024 Basophils (Bld) [#/Vol] 0.0 10*3/uL 0.0 - 0.1 10*3/uL [facility] Basophils/100 WBC (Bld) 0.7 % 0.0 - 1.0 % [facility] Differential cell count method Nom (Bld) Auto [facility] Eosinophils (Bld) [#/Vol] 0.2 10*3/uL 0.0 - 0.5 10*3/uL [facility] Eosinophils/100 WBC (Bld) 4.4 % 0.3 - 5.0 % [facility] Erythrocyte distribution width (RBC) [Ratio] 17.4 % 10.7 - 18.7 % [facility] Hematocrit (Bld) [Volume fraction] 35.3 % 33.0 - 51.0 % [facility] Hemoglobin (Bld) [Mass/Vol] 12.2 g/dL 12.0 - 16.0 g/dL [facility] Interpretation and review of laboratory results Abnormal [facility] Lymphocytes (Bld) [#/Vol] 1.2 10*3/uL 1.1 - 5.0 10*3/uL [facility] Lymphocytes/100 WBC (Bld) 26.6 % 24.0 - 44.0 % [facility] MCH (RBC) [Entitic mass] 32.5 pg 26.0 - 34.0 pg [facility] MCHC (RBC) [Mass/Vol] 34.5 g/dL 32.0 - 36.0 g/dL [facility] MCV (RBC) [Entitic vol] 94.1 fL 80.0 - 100.0 fL [facility] Monocytes (Bld) [#/Vol] 0.6 10*3/uL 0.0 - 1.4 10*3/uL [facility] Monocytes/100 WBC (Bld) 13.8 % High 2.1 - 13.3 % [facility] Neutrophils (Bld) [#/Vol] 2.4 10*3/uL 1.5 - 8.5 10*3/uL [facility] Neutrophils/100 WBC (Bld) 54.5 % 35.0 - 66.0 % [facility] Platelet mean volume (Bld) [Entitic vol] 9.1 fL 6.5 - 10.0 fL [facility] Platelets (Bld) [#/Vol] 52 10*3/uL Low 150 - 450 10*3/uL [facility] RBC (Bld) [#/Vol] 3.75 10*6/uL Low 4.00 - 5.2 0 10*6/uL [facility] WBC (Bld) [#/Vol] 4.3 10*3/uL Low 4.5 - 11.0 10*3/uL [facility] CBC w/ Differentialon 2024 Basophil Abs. 0.0 10*3/uL Normal 0.0-0.1 [facility] Comment on above: Performed By: #### L [id number] ####[facility] [place], [place] [id number] Basophils/100 WBC (Bld) 0.7 % Normal 0.0-1.0 [facility] Comment on above: Performed By: #### L [id number] ####[place] [address] Differential type Auto Normal [facility] Comment on above: Performed By: #### L [id number] ####[place] [address] Eosinophils (Bld) [#/Vol] 0.2 10*3/uL Normal 0.0-0.5 [facility] Comment on above: Performed By: #### L [id number] ####[place] [address] Eosinophils/100 WBC (Bld) 4.4 % Normal 0.3-5.0 [facility] Comment on above: Performed By: #### L [id number] ####[place] [address] Erythrocyte distribution width (RBC) [Ratio] 17.4 % Normal 10.7-18.7 [facility] Comment on above: Performed By: #### L [id number] ####[place] [address] Hematocrit (Bld) [Volume fraction] 35.3 % Normal 33.0-51.0 [facility] Comment on above: Performed By: #### L [id number] ####[place] [address] Hemoglobin (Bld) [Mass/Vol] 12.2 g/dL Normal 12.0-16.0 [facility] Comment on above: Performed By: #### L [id number] ####[place] [address] Lymphocytes (Bld) [#/Vol] 1.2 10*3/uL Normal 1.1-5.0 [facility] Comment on above: Performed By: #### L [id number] ####[place] [address] Lymphocytes/100 WBC (Bld) 26.6 % Normal 24.0-44.0 [facility] Comment on above: Performed By: #### L [id number] ####[place] [address] MCH (RBC) [Entitic mass] 32.5 pg Normal 26.0-34.0 [facility] Comment on above: Performed By: #### L [id number] ####[place] [address] MCHC (RBC) [Mass/Vol] 34.5 g/dL Normal 32.0-36.0 [facility] Comment on above: Performed By: #### L [id number] ####[place] [address] MCV (RBC) [Entitic vol] 94.1 fL Normal 80.0-100.0 [facility] Comment on above: Performed By: #### L [id number] ####[place] [address] Monocytes (Bld) [#/Vol] 0.6 10*3/uL Normal 0.0-1.4 [facility] Comment on above: Performed By: #### L [id number] ####[place] [address] Monocytes/100 WBC (Bld) 13.8 % High 2.1-13.3 [facility] Comment on above: Performed By: #### L [id number] ####[place] [address] Neutrophils, Abs. 2.4 10*3/uL Normal 1.5-8.5 [facility] Comment on above: Performed By: #### L [id number] ####[place] [address] Neutrophils/100 WBC (Bld) 54.5 % Normal 35.0-66.0 [facility] Comment on above: Performed By: #### L [id number] ####[place] [address] Platelet Cnt 52 10*3/uL Low 150-450 [facility] Comment on above: Performed By: #### L [id number] ####[place] [address] Platelet mean volume (Bld) [Entitic vol] 9.1 fL Normal 6.5-10.0 [facility] Comment on above: Performed By: #### L [id number] ####[place] [address] RBC (Bld) [#/Vol] 3.75 10*6/uL Low 4.00-5.20 [facility] Comment on above: Performed By: #### L [id number] ####[place] [address] WBC (Bld) [#/Vol] 4.3 10*3/uL Low 4.5-11.0 [facility] Comment on above: Performed By: #### L [id number] ####[place] [address] COMPREHENSIVE METABOLIC PANE [place] 12-13-2024 Albumin [Mass/Vol] 2.8 g/dL Low 3.2-5.0 [facility] Comment on above: Performed By: #### L [id number] ####[place] [address] Albumin/Globulin [Mass ratio] 0.8 {ratio} Normal [facility] Comment on above: Performed By: #### L [id number] ####[place] [address] ALP [Catalytic activity/Vol] 114 U/L Normal 42-121 [facility] Comment on above: Performed By: #### L [id number] ####BABATUNDE [place] [id number] ALT [Catalytic activity/Vol] 74 U/L High 10-60 [facility] Comment on above: Performed By: #### L [id number] ####[place] [address] Anion gap [Moles/Vol] 8 mmol/L Normal [facility] Comment on above: Performed By: #### L [id number] ####[place] [address] AST [Catalytic activity/Vol] 137 U/L High 10-42 [facility] Comment on above: Performed By: #### L [id number] ####[place] [address] B/C 10 Normal 10-20 [facility] Comment on above: Performed By: #### L [id number] ####[place] [address] Bilirubin.direct [Mass/Vol] 1.5 mg/dL High 0.2-1.0 [facility] Comment on above: Performed By: #### L [id number] ####[place] [address] Calcium [Mass/Vol] 8.8 mg/dL Normal 8.5-10.5 [facility] Comment on above: Performed By: #### L UI0880 ####[place] [address] Chloride [Moles/Vol] 110 mmol/L Normal 101-111 [facility] Comment on above: Performed By: #### L KS0918 ####[place] [address] CO2 [Moles/Vol] 23 mmol/L Normal 21-31 [facility] Comment on above: Performed By: #### L PK3543 ####[place] [address] Creatinine [Mass/Vol] 0.9 mg/dL Normal 0.4-1.0 [facility] Comment on above: Performed By: #### L [id number] ####[place] [address] GFR/1.73 sq M.predicted MDRD (S/P/Bld) [Vol rate/Area] 66 mL/min/{1.73_m2} Normal [facility] Comment on above: Result Comment: *The estimated Glomerular Filtration Rate(EGFR) may not be accurate for children under the age of 18 yrs. To estimate the GFR for -Americans multiply the result provided by 1.21.Stage 1 90 mL/min or greaterStage 2 60-89 mL/minStage 3 30-59 mL/minStage 4 15-29 mL/minStage 5 14 mL/min or less Performed By: #### L [id number] ####BABATUNDE [address] [address] Glucose [Mass/Vol] 94 mg/dL Normal 70-110 [facility] Comment on above: Performed By: #### L [id number] ####BABATUNDE [address] [address] Osmolality [Osmolality] 280 mosm/kg Normal 266-309 [facility] Comment on above: Performed By: #### L [id number] ####BABATUNDE [address] [address] Potassium [Moles/Vol] 3.6 mmol/L Normal 3.6-5.0 [facility] Comment on above: Performed By: #### L TV6899 ####BABATUNDE [address] [address] Protein [Mass/Vol] 6.3 g/dL Normal 6.1-7.8 [facility] Comment on above: Performed By: #### L [id number] ####BABATUNDE [address] [address] Sodium [Moles/Vol] 141 mmol/L Normal 135-145 [facility] Comment on above: Performed By: #### L [id number] ####BABATUNDE [address] [address] Urea nitrogen [Mass/Vol] 9 mg/dL Normal 2-32 [facility] Comment on above: Performed By: #### L [id number] ####BABATUNDE [address] [address] Comprehensive Metabolic Pane merritt 12-13-2024 Albumin [Mass/Vol] 2.8 g/dL Low 3.2 - 5.0 g/dL [facility] Albumin/Globulin [Mass ratio] 0.8 {ratio} [facility] ALP [Catalytic activity/Vol] 114 U/L 42 - 121 [iU]/L [facility] ALT [Catalytic activity/Vol] 74 U/L High 10 - 60 [iU]/L [facility] Anion gap [Moles/Vol] 8 mmol/L [facility] AST [Catalytic activity/Vol] 137 U/L High 10 - 42 [iU]/L [facility] Bilirubin [Mass/Vol] 1.5 mg/dL High 0.2 - 1 .0 mg/dL [facility] Calcium [Mass/Vol] 8.8 mg/dL 8.5 - 10. 5 mg/dL [facility] Chloride [Moles/Vol] 110 mmol/L 101 - 1 11 mmol/L [facility] CO2 [Moles/Vol] 23 mmol/L 21 - 31 mmol/L [facility] Creatinine [Mass/Vol] 0.9 mg/dL 0.4 - 1.0 mg/dL [facility] GFR/1.73 sq M.predicted MDRD (S/P/Bld) [Vol rate/Area] 66 mL/min/{1.73_m2} [facility] Comment on above: *The estimated Glome rular Filtration Rate(EGFR) may not be accurate for children under the age of 18 yrs. To estimate the GFR for -Americans multiply the result provided by 1.21. Stage 1 90 mL/min or greater Stage 2 60-89 mL/min Stage 3 30-59 mL/min Stage 4 15-29 mL/min Stage 5 14 mL/min or less Glucose [Mass/Vol] 94 mg/dL 70 - 110 mg/dL [facility] Interpretation and review of laboratory results Abnormal [facility] Osmolality Calc [Osmolality] 280 266 - 309 [facility] Potassium [Moles/Vol] 3.6 mmol/L 3.6 - 5.0 mmol/L [facility] Protein [Mass/Vol] 6.3 g/dL 6.1 - 7.8 g/dL [facility] Sodium [Moles/Vol] 141 mmol/L 135 - 145 mmol/L [facility] Urea nitrogen [Mass/Vol] 9 mg/dL 2 - 32 mg/dL [facility] Urea nitrogen/Creatinine [Mass ratio] 10 mg/mg 10 - 20 [facility] Albumin, Body Fluidon 2024 Albumin (Body fld) [Mass/Vol] 493 mg/dL [facility] Comment on above: INTERPRETIVE INFORMA TION: Albumin, Body Fluid A reference interval has not been established for body fluid specimens. This test was developed and its performance characteristics determined by [facility]. It has not been cleared or approved by the U.S. Food and Drug Administration. This test was performed in a CLIA-certified laboratory and is intended for clinical purposes. Performed By: [facility] [address] [place] [address] Filler Wiper: Elvin Diaz MD, PhD CLIA Number: [id number] Specimen source Nom (Unsp spec) asc [facility] Albumin, Body Fluid 493 mg/dL Normal [facility] Comment on above: Result Comment: INTE RPRETIVE INFORMATION: Albumin, Body FluidA reference interval has not been established for body fluidspecimens.This test was developed and its performance characteristicsdetermined by [facility]. It has not been cleared orapproved by the U.S. Food and Drug Administration. This test wasperformed in a CLIA-certified laboratory and is intended forclinical purposes.Performed By: [facility] [place] [id number] Director: Elvin Diaz MD, PhDCLIA Number: [id number] Performed By: #### L [id number], ZEO1617, WUW3405, TKR1056, OLL4290 ####[facility] [address] [place] [address] Source: asc Normal [facility] Comment on above: Performed By: #### L XC6442, HWJ1875, TTK3569, TII7779, PXO9509 ####[facility] [address] [place] [address] Body Fluid Cell Counton 11-24 Appearance (Body fld) Slt [facility] Basophils Manual cnt (Body fld) [#/Vol] 0 % [facility] Color (Body fld) Yellow [facility] Comment 0 [facility] Eosinophils Manual cnt (Body fld) [#/Vol] 0 % [facility] Lymphocytes Manual cnt (Body fld) [#/Vol] 54 % [facility] Macrophages/100 WBC Manual cnt (Body fld) 41 % [facility] Mesothelial cells LM Ql (Body fld) 3 % [facility] Neutrophils Manual cnt (Body fld) [#/Vol] 2 % [facility] Nucleated cells (Body fld) [#/Vol] 172 uL [facility] Comment on above: RESULTS OF COUNT MAY BE INACCURATE IF SPECIMEN IS PARTIALLY CLOTTED OR EXHIBIT CELL CLUMPING. Observation interpretation (Unsp spec) [Interp] see below [facility] Comment on above: Reference ranges & o ther method performance specifications have not been established for this body fluid type. The test result must be integrated into the clinical context for interpretation. Pathologist review Eliezer (Unsp spec) [Interp] see below [facility] Comment on above: REVIEWED BY DR. SHAUNA KILLIAN: Agree with differential. 12/12/2024 Plasma cells (Body fld) [#/Vol] 0 % [facility] RBC Auto (Body fld) [#/Vol] 1,023 uL [facility] Specimen source Nom (Body fld) Ascites [facility] Specimen volume (Body fld) 60.0 [facility] Tube number Nom (Body fld) [ID] Syringe [facility] CBCon 12-12-2024 Basophils (Bld) [#/Vol] 0.0 10*3/uL 0.0 - 0.1 10*3/uL [facility] Basophils/100 WBC (Bld) 0.7 % 0.0 - 1.0 % [facility] Differential cell count method Nom (Bld) Auto [facility] Eosinophils (Bld) [#/Vol] 0.3 10*3/uL 0.0 - 0.5 10*3/uL [facility] Eosinophils/100 WBC (Bld) 5.2 % High 0.3 - 5.0 % [facility] Erythrocyte distribution width (RBC) [Ratio] 17.3 % 10.7 - 18.7 % [facility] Hematocrit (Bld) [Volume fraction] 36.4 % 33.0 - 51.0 % [facility] Hemoglobin (Bld) [Mass/Vol] 12.6 g/dL 12.0 - 16.0 g/dL [facility] Interpretation and review of laboratory results Abnormal [facility] Lymphocytes (Bld) [#/Vol] 1.3 10*3/uL 1.1 - 5.0 10*3/uL [facility] Lymphocytes/100 WBC (Bld) 25.5 % 24.0 - 44.0 % [facility] MCH (RBC) [Entitic mass] 32.4 pg 26.0 - 34.0 pg [facility] MCHC (RBC) [Mass/Vol] 34.5 g/dL 32.0 - 36.0 g/dL [facility] MCV (RBC) [Entitic vol] 93.8 fL 80.0 - 100.0 fL [facility] Monocytes (Bld) [#/Vol] 0.6 10*3/uL 0.0 - 1.4 10*3/uL [facility] Monocytes/100 WBC (Bld) 11.5 % 2.1 - 13.3 % [facility] Neutrophils (Bld) [#/Vol] 2.8 10*3/uL 1.5 - 8.5 10*3/uL [facility] Neutrophils/100 WBC (Bld) 57.1 % 35.0 - 66.0 % [facility] Platelet mean volume (Bld) [Entitic vol] 9.5 fL 6.5 - 10.0 fL [facility] Platelets (Bld) [#/Vol] 57 10*3/uL Low 150 - 450 10*3/uL [facility] RBC (Bld) [#/Vol] 3.88 10*6/uL Low 4.00 - 5.2 0 10*6/uL [facility] WBC (Bld) [#/Vol] 4.9 10*3/uL 4.5 - 11.0 10*3/uL [facility] CBC w/ Differentialon 2024 Basophil Abs. 0.0 10*3/uL Normal 0.0-0.1 [facility] Comment on above: Performed By: #### L [id number] ####[place] [address] Basophils/100 WBC (Bld) 0.7 % Normal 0.0-1.0 [facility] Comment on above: Performed By: #### L [id number] ####[place] [address] Differential type Auto Normal [facility] Comment on above: Performed By: #### L [id number] ####[place] [address] Eosinophils (Bld) [#/Vol] 0.3 10*3/uL Normal 0.0-0.5 [facility] Comment on above: Performed By: #### L [id number] ####[place] [address] Eosinophils/100 WBC (Bld) 5.2 % High 0.3-5.0 [facility] Comment on above: Performed By: #### L YK7262 ####[place] [address] Erythrocyte distribution width (RBC) [Ratio] 17.3 % Normal 10.7-18.7 [facility] Comment on above: Performed By: #### L [id number] ####[place] [address] Hematocrit (Bld) [Volume fraction] 36.4 % Normal 33.0-51.0 [facility] Comment on above: Performed By: #### L CZ1191 ####[place] [address] Hemoglobin (Bld) [Mass/Vol] 12.6 g/dL Normal 12.0-16.0 [facility] Comment on above: Performed By: #### L [id number] ####[place] [address] Lymphocytes (Bld) [#/Vol] 1.3 10*3/uL Normal 1.1-5.0 [facility] Comment on above: Performed By: #### L IR3646 ####BABATUNDE [place] [id number] Lymphocytes/100 WBC (Bld) 25.5 % Normal 24.0-44.0 [facility] Comment on above: Performed By: #### L [id number] ####[place] [address] MCH (RBC) [Entitic mass] 32.4 pg Normal 26.0-34.0 [facility] Comment on above: Performed By: #### L [id number] ####[place] [address] MCHC (RBC) [Mass/Vol] 34.5 g/dL Normal 32.0-36.0 [facility] Comment on above: Performed By: #### L JT5451 ####[place] [address] MCV (RBC) [Entitic vol] 93.8 fL Normal 80.0-100.0 [facility] Comment on above: Performed By: #### L UY3866 ####[place] [address] Monocytes (Bld) [#/Vol] 0.6 10*3/uL Normal 0.0-1.4 [facility] Comment on above: Performed By: #### L [id number] ####BABATUNDE [place] [id number] Monocytes/100 WBC (Bld) 11.5 % Normal 2.1-13.3 [facility] Comment on above: Performed By: #### L WL1658 ####BABATUNDE [place] [id number] Neutrophils, Abs. 2.8 10*3/uL Normal 1.5-8.5 [facility] Comment on above: Performed By: #### L NK4365 ####[place] [address] Neutrophils/100 WBC (Bld) 57.1 % Normal 35.0-66.0 [facility] Comment on above: Performed By: #### L II5761 ####[place] [address] Platelet Cnt 57 10*3/uL Low 150-450 [facility] Comment on above: Performed By: #### L [id number] ####[place] [address] Platelet mean volume (Bld) [Entitic vol] 9.5 fL Normal 6.5-10.0 [facility] Comment on above: Performed By: #### L [id number] ####[place] [address] RBC (Bld) [#/Vol] 3.88 10*6/uL Low 4.00-5.20 [facility] Comment on above: Performed By: #### L GA7166 ####[place] [address] WBC (Bld) [#/Vol] 4.9 10*3/uL Normal 4.5-11.0 [facility] Comment on above: Performed By: #### L [id number] ####[place] [address] COMPREHENSIVE METABOLIC PANE [place] 12-12-2024 Albumin [Mass/Vol] 2.9 g/dL Low 3.2-5.0 [facility] Comment on above: Performed By: #### L SB4684 ####BABATUNDE [place] [id number] Albumin/Globulin [Mass ratio] 0.9 {ratio} Normal [facility] Comment on above: Performed By: #### L [id number] ####BABATUNDE [place] [id number] ALP [Catalytic activity/Vol] 124 U/L High 42-121 [facility] Comment on above: Performed By: #### L [id number] ####[place] [address] ALT [Catalytic activity/Vol] 72 U/L High 10-60 [facility] Comment on above: Performed By: #### L [id number] ####[place] [address] Anion gap [Moles/Vol] 6 mmol/L Normal [facility] Comment on above: Performed By: #### L [id number] ####[place] [address] AST [Catalytic activity/Vol] 130 U/L High 10-42 [facility] Comment on above: Performed By: #### L PF4784 ####[place] [address] B/C 9 Low 10-20 [facility] Comment on above: Performed By: #### L NE1849 ####[place] [address] Bilirubin.direct [Mass/Vol] 1.8 mg/dL High 0.2-1.0 [facility] Comment on above: Performed By: #### L [id number] ####[place] [address] Calcium [Mass/Vol] 8.4 mg/dL Low 8.5-10.5 [facility] Comment on above: Performed By: #### L GU9990 ####[place] [address] Chloride [Moles/Vol] 109 mmol/L Normal 101-111 [facility] Comment on above: Performed By: #### L VY2809 ####[place] [address] CO2 [Moles/Vol] 22 mmol/L Normal 21-31 [facility] Comment on above: Performed By: #### L [id number] ####[place] [address] Creatinine [Mass/Vol] 1.0 mg/dL Normal 0.4-1.0 [facility] Comment on above: Performed By: #### L TR5317 ####BABATUNDE [address] [address] GFR/1.73 sq M.predicted MDRD (S/P/Bld) [Vol rate/Area] 58 mL/min/{1.73_m2} Normal [facility] Comment on above: Result Comment: *The estimated Glomerular Filtration Rate(EGFR) may not be accurate for children under the age of 18 yrs. To estimate the GFR for -Americans multiply the result provided by 1.21.Stage 1 90 mL/min or greaterStage 2 60-89 mL/minStage 3 30-59 mL/minStage 4 15-29 mL/minStage 5 14 mL/min or less Performed By: #### L ZQ5160 ####[place] [address] Glucose [Mass/Vol] 88 mg/dL Normal 70-110 [facility] Comment on above: Performed By: #### L CP1928 ####BABATUNDE [address] [address] Osmolality [Osmolality] 272 mosm/kg Normal 266-309 [facility] Comment on above: Performed By: #### L OW0644 ####BABATUNDE [address] [address] Potassium [Moles/Vol] 3.9 mmol/L Normal 3.6-5.0 [facility] Comment on above: Performed By: #### L RR5558 ####BABATUNDE [address] [address] Protein [Mass/Vol] 6.1 g/dL Normal 6.1-7.8 [facility] Comment on above: Performed By: #### L [id number] ####BABATUNDE [address] [address] Sodium [Moles/Vol] 137 mmol/L Normal 135-145 [facility] Comment on above: Performed By: #### L [id number] ####BABATUNDE [place] [id number] [place] [address] Urea nitrogen [Mass/Vol] 9 mg/dL Normal 2-32 [facility] Comment on above: Performed By: #### L [id number] ####[facility] [address] [place] [id number] Comprehensive Metabolic Pane merritt 12-12-2024 Albumin [Mass/Vol] 2.9 g/dL Low 3.2 - 5.0 g/dL [facility] Albumin/Globulin [Mass ratio] 0.9 {ratio} [facility] ALP [Catalytic activity/Vol] 124 U/L High 42 - 121 [iU]/L [facility] ALT [Catalytic activity/Vol] 72 U/L High 10 - 60 [iU]/L [facility] Anion gap [Moles/Vol] 6 mmol/L [facility] AST [Catalytic activity/Vol] 130 U/L High 10 - 42 [iU]/L [facility] Bilirubin [Mass/Vol] 1.8 mg/dL High 0.2 - 1 .0 mg/dL [facility] Calcium [Mass/Vol] 8.4 mg/dL Low 8.5 - 10. 5 mg/dL [facility] Chloride [Moles/Vol] 109 mmol/L 101 - 1 11 mmol/L [facility] CO2 [Moles/Vol] 22 mmol/L 21 - 31 mmol/L [facility] Creatinine [Mass/Vol] 1.0 mg/dL 0.4 - 1.0 mg/dL [facility] GFR/1.73 sq M.predicted MDRD (S/P/Bld) [Vol rate/Area] 58 mL/min/{1.73_m2} [facility] Comment on above: *The estimated Glome rular Filtration Rate(EGFR) may not be accurate for children under the age of 18 yrs. To estimate the GFR for -Americans multiply the result provided by 1.21. Stage 1 90 mL/min or greater Stage 2 60-89 mL/min Stage 3 30-59 mL/min Stage 4 15-29 mL/min Stage 5 14 mL/min or less Glucose [Mass/Vol] 88 mg/dL 70 - 110 mg/dL [facility] Interpretation and review of laboratory results Abnormal [facility] Osmolality Calc [Osmolality] 272 266 - 309 [facility] Potassium [Moles/Vol] 3.9 mmol/L 3.6 - 5.0 mmol/L [facility] Protein [Mass/Vol] 6.1 g/dL 6.1 - 7.8 g/dL [facility] Sodium [Moles/Vol] 137 mmol/L 135 - 145 mmol/L [facility] Urea nitrogen [Mass/Vol] 9 mg/dL 2 - 32 mg/dL [facility] Urea nitrogen/Creatinine [Mass ratio] 9 mg/mg Low 10 - 20 [facility] Cytology, Non Gynon 12-13-19 Cytology report Cyto stain Doc (Unsp spec) SEE BELOW [facility] Comment on above: [place] [address] Department of Cytology CAROLINA HIGHTOWER [phone] COPIES TO: TOMMIE NEW MD The information contained in this report is meant to be interpreted by the ordering physician/health care provider in the context of the patient's clinical findings. Please refer to your physician/health care provider for follow up care. CLINICAL LOWER LEFT QUADRANT ABDOMINAL PAIN, LOWER BACK PAIN, DATA: HISTORY OF ASCITES, HISTORY OF CIRRHOSIS, HISTORY OF KIDNEY STONES SPECIMEN: PERITONEAL FLUID Specimen Description: Materials Examined: Volume ................16 ml Cytospin Slides ...... 1 Color ...................White Cell Blocks ..............1 Monolayers ............ 1 Consist.................fluid Special Stains ........ 1 Other: JAYSON, SHAE The cellblock total 10% formalin fixation time is 6-72 hours. DIAGNOSIS Peritoneal fluid: Negative for malignant cells Screened By : HUNTER M.D., Pathologist Part B: [id number] x 1, [phone] x 1 Page 1 of 1 [facility] FLUID CELL COUNTon 5 Basophils/100 WBC (Bld) 0 % Normal [facility] Comment on above: Performed By: #### L HH6020, UVC9622, OWG9368, AFO9526, VFH4822 ####[facility] [address] [address] Eosinophils/100 WBC (Bld) 0 % Normal [facility] Comment on above: Performed By: #### L QE4798, MSG6533, KVR4774, ADR9990, XQZ9142 ####[facility] [address] [address] Lymphocytes/100 WBC (Bld) 54 % Normal [facility] Comment on above: Performed By: #### L VH2458, QGV4392, SZC2814, OCI9643, RQP9420 ####[address] [address] MACROPHAGES 41 % Normal [facility] Comment on above: Performed By: #### L ON0730, ZNE6668, TJV9282, FQZ0256, JTD3716 ####[facility] [place] [address] MESOTHELIAL 3 % Normal [facility] Comment on above: Performed By: #### L DN7312, XYV1600, CEN4232, OCD5728, GKT0254 ####[address] [address] Neutrophils/100 WBC (Bld) 2 % Normal [facility] Comment on above: Performed By: #### L ZX0154, LVG5094, KEE7484, JBE6830, EXR5151 ####[facility] [place] [address] PATHOLOGY REVIEW see below Normal [facility] Comment on above: Result Comment: REVI EWED BY DR. ALEXANDRU KILLIAN: Agree with differential. 12/12/2024 Performed By: #### L UC3021, NKA3951, BMZ3724, CKJ8212, YBV6050 ####[place] [address] PLASMA CELLS 0 % Normal [facility] Comment on above: Performed By: #### L FB2608, RPB4594, SCH7955, OQS8178, CDJ7551 ####[facility] [address] [place] [address] OTHER 0 Normal [facility] Comment on above: Performed By: #### L WA8239, AVJ3860, RPR3012, DVS5008, RVN3473 ####[facility] [address] [place] [address] MRCP Abdomen WO and W contra st Tonya 12-12-2024 [place] [address] Radiology PATIENT NAME: Carolina Hightower MR#: [id number] PROCEDURE DATE: 12/12/2024 ROOM#: [id number] ORDERING PHYS: Lyssa Farrell PROCEDURE: MRI ABDOMEN W WO CONTRAST MRCP CLINICAL INFORMATION: Jaundice, fatty liver, elevated AFP COMPARISON: None TECHNIQUE: Multiecho and multisequence magnetic resonance imaging of the abdomen was performed with and without contrast. FINDINGS: Motion artifact degrades the study. The liver is heterogeneous and nodular consistent with cirrhosis. There are no focal enhancing masses identified. There is splenomegaly. There is a small amount of ascites. Dedicated MRCP images show no evidence of intrahepatic, or extrahepatic biliary ductal dilatation. There is no evidence of choledocholithiasis. The main pancreatic duct is normal caliber. The pancreas is unremarkable. The kidneys show no evidence hydronephrosis, or proximal hydroureter. Postcontrast images show no evidence of abnormal enhancement. Included osseous structures are overall intact. Included subcutaneous soft tissues show no discrete abnormalities. IMPRESSION: Cirrhosis with ascites and splenomegaly THIS IS AN ELECTRONICALLY VERIFIED REPORT 12/12/2024 11:58 AM: MD Saud Zimmer MD arlen TD: 12/12/2024 JOB #: [id number] Radiology Page 1 of 1 COPY [facility] [place] Saud Rivas MD - 12/12/2024 [place] [address] Radiology PATIENT NAME: Carolina Hightower MR#: [id number] PROCEDURE DATE: 12/12/2024 ROOM#: [id number] ORDERING PHYS: Lyssa Farrell PROCEDURE: MRI ABDOMEN W WO CONTRAST MRCP CLINICAL INFORMATION: Jaundice, fatty liver, elevated AFP COMPARISON: None TECHNIQUE: Multiecho and multisequence magnetic resonance imaging of the abdomen was performed with and without contrast. FINDINGS: Motion artifact degrades the study. The liver is heterogeneous and nodular consistent with cirrhosis. There are no focal enhancing masses identified. There is splenomegaly. There is a small amount of ascites. Dedicated MRCP images show no evidence of intrahepatic, or extrahepatic biliary ductal dilatation. There is no evidence of choledocholithiasis. The main pancreatic duct is normal caliber. The pancreas is unremarkable. The kidneys show no evidence hydronephrosis, or proximal hydroureter. Postcontrast images show no evidence of abnormal enhancement. Included osseous structures are overall intact. Included subcutaneous soft tissues show no discrete abnormalities. IMPRESSION: Cirrhosis with ascites and splenomegaly THIS IS AN ELECTRONICALLY VERIFIED REPORT 12/12/2024 11:58 AM: MD Saud Zimmer MD jp TD: 12/12/2024 JOB #: [id number] Radiology Page 1 of 1 COPY [facility] Radiology Study observation (narrative) [facility] CBCon 12-11-2024 Basophils (Bld) [#/Vol] 0.1 10*3/uL 0.0 - 0.1 10*3/uL [facility] Basophils/100 WBC (Bld) 1.4 % High 0.0 - 1.0 % [facility] Differential cell count method Nom (Bld) Auto [facility] Eosinophils (Bld) [#/Vol] 0.2 10*3/uL 0.0 - 0.5 10*3/uL [facility] Eosinophils/100 WBC (Bld) 4.2 % 0.3 - 5.0 % [facility] Erythrocyte distribution width (RBC) [Ratio] 17.7 % 10.7 - 18.7 % [facility] Hematocrit (Bld) [Volume fraction] 34.3 % 33.0 - 51.0 % [facility] Hemoglobin (Bld) [Mass/Vol] 11.8 g/dL Low 12.0 - 16.0 g/dL [facility] Interpretation and review of laboratory results Abnormal [facility] Lymphocytes (Bld) [#/Vol] 1.2 10*3/uL 1.1 - 5.0 10*3/uL [facility] Lymphocytes/100 WBC (Bld) 28.4 % 24.0 - 44.0 % [facility] MCH (RBC) [Entitic mass] 32.5 pg 26.0 - 34.0 pg [facility] MCHC (RBC) [Mass/Vol] 34.3 g/dL 32.0 - 36.0 g/dL [facility] MCV (RBC) [Entitic vol] 94.6 fL 80.0 - 100.0 fL [facility] Monocytes (Bld) [#/Vol] 0.4 10*3/uL 0.0 - 1.4 10*3/uL [facility] Monocytes/100 WBC (Bld) 9.2 % 2.1 - 13.3 % [facility] Neutrophils (Bld) [#/Vol] 2.4 10*3/uL 1.5 - 8.5 10*3/uL [facility] Neutrophils/100 WBC (Bld) 56.8 % 35.0 - 66.0 % [facility] Platelet mean volume (Bld) [Entitic vol] 9.4 fL 6.5 - 10.0 fL [facility] Platelets (Bld) [#/Vol] 52 10*3/uL Low 150 - 450 10*3/uL [facility] RBC (Bld) [#/Vol] 3.62 10*6/uL Low 4.00 - 5.2 0 10*6/uL [facility] WBC (Bld) [#/Vol] 4.3 10*3/uL Low 4.5 - 11.0 10*3/uL [facility] CBC w/ Differentialon 2024 Basophil Abs. 0.1 10*3/uL Normal 0.0-0.1 [facility] Comment on above: Performed By: #### L [id number] ####[place] [address] Basophils/100 WBC (Bld) 1.4 % High 0.0-1.0 [facility] Comment on above: Performed By: #### L [id number] ####[place] [address] Differential type Auto Normal [facility] Comment on above: Performed By: #### L [id number] ####[place] [address] Eosinophils (Bld) [#/Vol] 0.2 10*3/uL Normal 0.0-0.5 [facility] Comment on above: Performed By: #### L [id number] ####[place] [address] Eosinophils/100 WBC (Bld) 4.2 % Normal 0.3-5.0 [facility] Comment on above: Performed By: #### L [id number] ####[place] [address] Erythrocyte distribution width (RBC) [Ratio] 17.7 % Normal 10.7-18.7 [facility] Comment on above: Performed By: #### L [id number] ####[place] [address] Hematocrit (Bld) [Volume fraction] 34.3 % Normal 33.0-51.0 [facility] Comment on above: Performed By: #### L [id number] ####[place] [address] Hemoglobin (Bld) [Mass/Vol] 11.8 g/dL Low 12.0-16.0 [facility] Comment on above: Performed By: #### L [id number] ####[place] [address] Lymphocytes (Bld) [#/Vol] 1.2 10*3/uL Normal 1.1-5.0 [facility] Comment on above: Performed By: #### L [id number] ####[address] [address] Lymphocytes/100 WBC (Bld) 28.4 % Normal 24.0-44.0 [facility] Comment on above: Performed By: #### L [id number] ####BABATUNDE [address] [address] MCH (RBC) [Entitic mass] 32.5 pg Normal 26.0-34.0 [facility] Comment on above: Performed By: #### L [id number] ####[address] [address] MCHC (RBC) [Mass/Vol] 34.3 g/dL Normal 32.0-36.0 [facility] Comment on above: Performed By: #### L [id number] ####[place] [address] MCV (RBC) [Entitic vol] 94.6 fL Normal 80.0-100.0 [facility] Comment on above: Performed By: #### L VE5695 ####[place] [address] Monocytes (Bld) [#/Vol] 0.4 10*3/uL Normal 0.0-1.4 [facility] Comment on above: Performed By: #### L [id number] ####[address] [address] Monocytes/100 WBC (Bld) 9.2 % Normal 2.1-13.3 [facility] Comment on above: Performed By: #### L [id number] ####[place] [id number] Neutrophils, Abs. 2.4 10*3/uL Normal 1.5-8.5 [facility] Comment on above: Performed By: #### L [id number] ####BABATUNDE [address] [address] Neutrophils/100 WBC (Bld) 56.8 % Normal 35.0-66.0 [facility] Comment on above: Performed By: #### L [id number] ####[place] [address] Platelet Cnt 52 10*3/uL Low 150-450 [facility] Comment on above: Performed By: #### L [id number] ####BABATUNDE [address] [address] Platelet mean volume (Bld) [Entitic vol] 9.4 fL Normal 6.5-10.0 [facility] Comment on above: Performed By: #### L [id number] ####[place] [address] RBC (Bld) [#/Vol] 3.62 10*6/uL Low 4.00-5.20 [facility] Comment on above: Performed By: #### L [id number] ####BABATUNDE [address] [address] WBC (Bld) [#/Vol] 4.3 10*3/uL Low 4.5-11.0 [facility] Comment on above: Performed By: #### L SH6424 ####[place] [address] COMPREHENSIVE METABOLIC PANE [place] 12-11-2024 Albumin [Mass/Vol] 2.6 g/dL Low 3.2-5.0 [facility] Comment on above: Performed By: #### L [id number] ####BABATUNDE [place] [id number] Albumin/Globulin [Mass ratio] 0.8 {ratio} Normal [facility] Comment on above: Performed By: #### L [id number] ####[place] [id number] ALP [Catalytic activity/Vol] 113 U/L Normal 42-121 [facility] Comment on above: Performed By: #### L [id number] ####[place] [id number] ALT [Catalytic activity/Vol] 65 U/L High 10-60 [facility] Comment on above: Performed By: #### L XD0615 ####[place] [address] Anion gap [Moles/Vol] 5 mmol/L Normal [facility] Comment on above: Performed By: #### L [id number] ####[place] [address] AST [Catalytic activity/Vol] 112 U/L High 10-42 [facility] Comment on above: Performed By: #### L [id number] ####[place] [address] B/C 11 Normal 10-20 [facility] Comment on above: Performed By: #### L UL3916 ####[place] [address] Bilirubin.direct [Mass/Vol] 1.8 mg/dL High 0.2-1.0 [facility] Comment on above: Performed By: #### L QV2175 ####[place] [address] Calcium [Mass/Vol] 8.3 mg/dL Low 8.5-10.5 [facility] Comment on above: Performed By: #### L [id number] ####[place] [address] Chloride [Moles/Vol] 111 mmol/L Normal 101-111 [facility] Comment on above: Performed By: #### L [id number] ####[place] [address] CO2 [Moles/Vol] 22 mmol/L Normal 21-31 [facility] Comment on above: Performed By: #### L CY5408 ####[place] [address] Creatinine [Mass/Vol] 0.9 mg/dL Normal 0.4-1.0 [facility] Comment on above: Performed By: #### L [id number] ####[place] [address] GFR/1.73 sq M.predicted MDRD (S/P/Bld) [Vol rate/Area] 66 mL/min/{1.73_m2} Normal [facility] Comment on above: Result Comment: *The estimated Glomerular Filtration Rate(EGFR) may not be accurate for children under the age of 18 yrs. To estimate the GFR for -Americans multiply the result provided by 1.21.Stage 1 90 mL/min or greaterStage 2 60-89 mL/minStage 3 30-59 mL/minStage 4 15-29 mL/minStage 5 14 mL/min or less Performed By: #### L [id number] ####BABATUNDE [address] [address] Glucose [Mass/Vol] 83 mg/dL Normal 70-110 [facility] Comment on above: Performed By: #### L [id number] ####BABATUNDE [address] [address] Osmolality [Osmolality] 274 mosm/kg Normal 266-309 [facility] Comment on above: Performed By: #### L VL7460 ####BABATUNDE [address] [address] Potassium [Moles/Vol] 3.9 mmol/L Normal 3.6-5.0 [facility] Comment on above: Performed By: #### L LT9080 ####BABATUNDE [address] [address] Protein [Mass/Vol] 5.8 g/dL Low 6.1-7.8 [facility] Comment on above: Performed By: #### L [id number] ####BABATUNDE [address] [address] Sodium [Moles/Vol] 138 mmol/L Normal 135-145 [facility] Comment on above: Performed By: #### L [id number] ####BABATUNDE [address] [address] Urea nitrogen [Mass/Vol] 10 mg/dL Normal 2-32 [facility] Comment on above: Performed By: #### L QS8746 ####[place]AB[place] [id number] Comprehensive Metabolic Pane [place] 12-11-2024 Albumin [Mass/Vol] 2.6 g/dL Low 3.2 - 5.0 g/dL [facility] Albumin/Globulin [Mass ratio] 0.8 {ratio} [facility] ALP [Catalytic activity/Vol] 113 U/L 42 - 121 [iU]/L [facility] ALT [Catalytic activity/Vol] 65 U/L High 10 - 60 [iU]/L [facility] Anion gap [Moles/Vol] 5 mmol/L [facility] AST [Catalytic activity/Vol] 112 U/L High 10 - 42 [iU]/L [facility] Bilirubin [Mass/Vol] 1.8 mg/dL High 0.2 - 1 .0 mg/dL [facility] Calcium [Mass/Vol] 8.3 mg/dL Low 8.5 - 10. 5 mg/dL [facility] Chloride [Moles/Vol] 111 mmol/L 101 - 1 11 mmol/L [facility] CO2 [Moles/Vol] 22 mmol/L 21 - 31 mmol/L [facility] Creatinine [Mass/Vol] 0.9 mg/dL 0.4 - 1.0 mg/dL [facility] GFR/1.73 sq M.predicted MDRD (S/P/Bld) [Vol rate/Area] 66 mL/min/{1.73_m2} [facility] Comment on above: *The estimated Glome rular Filtration Rate(EGFR) may not be accurate for children under the age of 18 yrs. To estimate the GFR for -Americans multiply the result provided by 1.21. Stage 1 90 mL/min or greater Stage 2 60-89 mL/min Stage 3 30-59 mL/min Stage 4 15-29 mL/min Stage 5 14 mL/min or less Glucose [Mass/Vol] 83 mg/dL 70 - 110 mg/dL [facility] Interpretation and review of laboratory results Abnormal [facility] Osmolality Calc [Osmolality] 274 266 - 309 [facility] Potassium [Moles/Vol] 3.9 mmol/L 3.6 - 5.0 mmol/L [facility] Protein [Mass/Vol] 5.8 g/dL Low 6.1 - 7.8 g/dL [facility] Sodium [Moles/Vol] 138 mmol/L 135 - 145 mmol/L [facility] Urea nitrogen [Mass/Vol] 10 mg/dL 2 - 32 mg/dL [facility] Urea nitrogen/Creatinine [Mass ratio] 11 mg/mg 10 - 20 [facility] MRI ABDOMEN W WO CONTRAST MR CPon 12-11-2024 MRI ABDOMEN W WO CONTRAST MRCP Normal [facility] XR LUMBAR SPINE AP AND LATER Ale 12-11-2024 XR LUMBAR SPINE AP AND LATERAL Normal [facility] XR Lumbar spine AP and Later ale 12-11-2024 [place] [address] Radiology PATIENT NAME: Carolina Hightower MR#: [id number] PROCEDURE DATE: 12/11/2024 ROOM#: [facility] ORDERING PHYS: Isabella Ch Clinical history: Low back pain. Compared with 09/02/2024. Lumbar spine 3 Views. Findings: Vertebral bodies are normal in height and shows no evidence of acute compression fracture.. No evidence of spondylolisthesis. Visualized pedicles, spinous process and paraspinal soft tissue appears unremarkable. A decreased L5/S1 disc space height noted. The rest of the disc spaces are normal in height. IMPRESSION: Stable with no acute osseous finding. This note is generated using voice recognition computer software. Inadverent errors may have occurred while dictating note. Common sense approach is appreciated. THIS IS AN ELECTRONICALLY VERIFIED REPORT 12/11/2024 1:58 PM: MD Bill Parmar MD dd TD: 12/11/2024 JOB #: [id number] Radiology Page 1 of 1 COPY [facility] Bill Vasques MD - 12/11/2024 [place] [address] Radiology PATIENT NAME: Carolina Hightower MR#: [id number] PROCEDURE DATE: 12/11/2024 ROOM#: [id number] ORDERING PHYS: Isabella Ch Clinical history: Low back pain. Compared with 09/02/2024. Lumbar spine 3 Views. Findings: Vertebral bodies are normal in height and shows no evidence of acute compression fracture.. No evidence of spondylolisthesis. Visualized pedicles, spinous process and paraspinal soft tissue appears unremarkable. A decreased L5/S1 disc space height noted. The rest of the disc spaces are normal in height. IMPRESSION: Stable with no acute osseous finding. This note is generated using voice recognition computer software. Inadverent errors may have occurred while dictating note. Common sense approach is appreciated. THIS IS AN ELECTRONICALLY VERIFIED REPORT 12/11/2024 1:58 PM: MD Bill Parmar MD dd TD: 12/11/2024 JOB #: [id number] Radiology Page 1 of 1 COPY [facility] Radiology Study observation (narrative) [facility] XR Lumbar spine AP and Later alOrdered By: Bill Vasques on 12-11-2024 [facility] Work Phone: AFP Serum Tumor Markeron AFP [Mass/Vol] 41.23 ng/mL Abnormal NINF - 6.00 ng/mL [facility] Comment on above: * Reference values a re for non- subjects only; production of AFP elevates values thus alpha-fetoprotein values are not interpretable in females for the investigation of malignant disease. * Values obtained with different assay methods or kits may be different and cannot be used interchangeably. * Test results cannot be interpreted as absolute evidence for the presence or absence of malignant disease. Interpretation and review of laboratory results Abnormal [facility] AFP TUMOR MARKER, Son 2024 AFP TUMOR MARKER, S 41.23 ng/mL Abnormal < 6.00 [facility] Comment on above: Result Comment: * Re ference values are for non- subjects only; production ofAFP elevates values thus alpha-fetoprotein values are not interpretable in females for the investigation of malignant disease. * Values obtained with different assay methods or kits may be differentand cannot be used interchangeably. * Test results cannot be interpreted as absolute evidence for the presenceor absence of malignant disease. Performed By: #### L [id number] ####[place] [address] AMMONIAon 12-10-2024 Ammonia (P) [Moles/Vol] 78 umol/L High 11-50 [facility] Comment on above: Performed By: #### L YV1126, [id number] ####[place] [address] Ammoniaon 12-10-2024 Ammonia (P) [Moles/Vol] 78 umol/L High 11 - 50 umol/L [facility] Interpretation and review of laboratory results Abnormal [facility] BASIC METABOLIC PANELon 11-24 Anion gap [Moles/Vol] 4 mmol/L Normal [facility] Comment on above: Performed By: #### L LZ2708, QTN6986, [id number] ####[place] [address] B/C 7 Low 10-20 [facility] Comment on above: Performed By: #### L OZ9549, GZD6730, ZFI9097 ####[place] [address] Calcium [Mass/Vol] 8.7 mg/dL Normal 8.5-10.5 [facility] Comment on above: Performed By: #### L LH0100, DPX0057, YBG3630 ####[place] [address] Chloride [Moles/Vol] 111 mmol/L Normal 101-111 [facility] Comment on above: Performed By: #### L OI8424, KFP7718, FQM9205 ####[place] [address] CO2 [Moles/Vol] 20 mmol/L Low 21-31 [facility] Comment on above: Performed By: #### L BJ1085, KTQ4148, MZB3729 ####[place] [address] Creatinine [Mass/Vol] 0.9 mg/dL Normal 0.4-1.0 [facility] Comment on above: Performed By: #### Mustapha CA8308, QZG6580, YGQ7691 ####[place] [address] GFR/1.73 sq M.predicted MDRD (S/P/Bld) [Vol rate/Area] 66 mL/min/{1.73_m2} Normal [facility] Comment on above: Result Comment: *The estimated Glomerular Filtration Rate(EGFR) may not be accurate for children under the age of 18 yrs. To estimate the GFR for -Americans multiply the result provided by 1.21.Stage 1 90 mL/min or greaterStage 2 60-89 mL/minStage 3 30-59 mL/minStage 4 15-29 mL/minStage 5 14 mL/min or less Performed By: #### Mustapha CP9419, EJO8933, YAB9661 ####[place] [address] Glucose [Mass/Vol] 90 mg/dL Normal 70-110 [facility] Comment on above: Performed By: #### Mustapha CM9640, JVD7415, CLJ2194 ####[place] [address] Osmolality [Osmolality] 267 mosm/kg Normal 266-309 [facility] Comment on above: Performed By: #### Mustapha LZ3841, AVA2111, XFG8739 ####[place] [address] Potassium [Moles/Vol] 3.9 mmol/L Normal 3.6-5.0 [facility] Comment on above: Performed By: #### Mustapha TO3311, XJN7470, KJJ1946 ####BABATUNDE [address] [address] Sodium [Moles/Vol] 135 mmol/L Normal 135-145 [facility] Comment on above: Performed By: #### L AR8794, OOA8046, DDN4404 ####[place] [address] [place] [address] Urea nitrogen [Mass/Vol] 6 mg/dL Normal 2-32 [facility] Comment on above: Performed By: #### L YV7399, MTA8881, KAF3071 ####[facility] [id number] [place] [address] BLOOD CULTUREon 12-10-2024 Bacteria identified Cx Nom (Bld) Bacteria identified in Blood by Culture BLOOD CULTURE: No growth @ 24 hours. Normal [facility] Comment on above: Performed By: #### L [id number] ####[facility]DMA[facility] [id number] [place] [address] Basic Metabolic Panelon 11-24 Anion gap [Moles/Vol] 4 mmol/L [facility] Calcium [Mass/Vol] 8.7 mg/dL 8.5 - 10. 5 mg/dL [facility] Chloride [Moles/Vol] 111 mmol/L 101 - 1 11 mmol/L [facility] CO2 [Moles/Vol] 20 mmol/L Low 21 - 31 mmol/L [facility] Creatinine [Mass/Vol] 0.9 mg/dL 0.4 - 1.0 mg/dL [facility] GFR/1.73 sq M.predicted MDRD (S/P/Bld) [Vol rate/Area] 66 mL/min/{1.73_m2} [facility] Comment on above: *The estimated Glome rular Filtration Rate(EGFR) may not be accurate for children under the age of 18 yrs. To estimate the GFR for -Americans multiply the result provided by 1.21. Stage 1 90 mL/min or greater Stage 2 60-89 mL/min Stage 3 30-59 mL/min Stage 4 15-29 mL/min Stage 5 14 mL/min or less Glucose [Mass/Vol] 90 mg/dL 70 - 110 mg/dL [facility] Interpretation and review of laboratory results Abnormal [facility] Osmolality Calc [Osmolality] 267 266 - 309 [facility] Potassium [Moles/Vol] 3.9 mmol/L 3.6 - 5.0 mmol/L [facility] Sodium [Moles/Vol] 135 mmol/L 135 - 145 mmol/L [facility] Urea nitrogen [Mass/Vol] 6 mg/dL 2 - 32 mg/dL [facility] Urea nitrogen/Creatinine [Mass ratio] 7 mg/mg Low 10 - 20 [facility] CBCon 12-10-2024 Basophils (Bld) [#/Vol] 0.0 10*3/uL 0.0 - 0.1 10*3/uL [facility] Basophils/100 WBC (Bld) 1.0 % 0.0 - 1.0 % [facility] Differential cell count method Nom (Bld) Auto [facility] Eosinophils (Bld) [#/Vol] 0.3 10*3/uL 0.0 - 0.5 10*3/uL [facility] Eosinophils/100 WBC (Bld) 6.2 % High 0.3 - 5.0 % [facility] Erythrocyte distribution width (RBC) [Ratio] 18.0 % 10.7 - 18.7 % [facility] Hematocrit (Bld) [Volume fraction] 35.1 % 33.0 - 51.0 % [facility] Hemoglobin (Bld) [Mass/Vol] 12.2 g/dL 12.0 - 16.0 g/dL [facility] Interpretation and review of laboratory results Abnormal [facility] Lymphocytes (Bld) [#/Vol] 1.3 10*3/uL 1.1 - 5.0 10*3/uL [facility] Lymphocytes/100 WBC (Bld) 27.3 % 24.0 - 44.0 % [facility] MCH (RBC) [Entitic mass] 32.3 pg 26.0 - 34.0 pg [facility] MCHC (RBC) [Mass/Vol] 34.7 g/dL 32.0 - 36.0 g/dL [facility] MCV (RBC) [Entitic vol] 93.0 fL 80.0 - 100.0 fL [facility] Monocyte distribution width Auto (Bld) [Entitic vol] 18.8 0.0 - 20.0 [facility] Monocytes (Bld) [#/Vol] 0.5 10*3/uL 0.0 - 1.4 10*3/uL [facility] Monocytes/100 WBC (Bld) 10.2 % 2.1 - 13.3 % [facility] Neutrophils (Bld) [#/Vol] 2.6 10*3/uL 1.5 - 8.5 10*3/uL [facility] Neutrophils/100 WBC (Bld) 55.3 % 35.0 - 66.0 % [facility] Platelet mean volume (Bld) [Entitic vol] 9.5 fL 6.5 - 10.0 fL [facility] Platelets (Bld) [#/Vol] 55 10*3/uL Low 150 - 450 10*3/uL [facility] RBC (Bld) [#/Vol] 3.77 10*6/uL Low 4.00 - 5.2 0 10*6/uL [facility] WBC (Bld) [#/Vol] 4.7 10*3/uL 4.5 - 11.0 10*3/uL [facility] CBC w/ Differentialon 2024 Basophil Abs. 0.0 10*3/uL Normal 0.0-0.1 [facility] Comment on above: Performed By: #### L DH0212 ####[address] [address] Basophils/100 WBC (Bld) 1.0 % Normal 0.0-1.0 [facility] Comment on above: Performed By: #### L TR5521 ####BABATUNDE [address] [address] Differential type Auto Normal [facility] Comment on above: Performed By: #### L [id number] ####BABATUNDE [address] [address] Eosinophils (Bld) [#/Vol] 0.3 10*3/uL Normal 0.0-0.5 [facility] Comment on above: Performed By: #### L RL8502 ####[address] [address] Eosinophils/100 WBC (Bld) 6.2 % High 0.3-5.0 [facility] Comment on above: Performed By: #### L QF2682 ####[place] [address] Erythrocyte distribution width (RBC) [Ratio] 18.0 % Normal 10.7-18.7 [facility] Comment on above: Performed By: #### L KE5551 ####[place] [address] Hematocrit (Bld) [Volume fraction] 35.1 % Normal 33.0-51.0 [facility] Comment on above: Performed By: #### L CV2167 ####[place] [address] Hemoglobin (Bld) [Mass/Vol] 12.2 g/dL Normal 12.0-16.0 [facility] Comment on above: Performed By: #### L PT0031 ####[place] [address] Lymphocytes (Bld) [#/Vol] 1.3 10*3/uL Normal 1.1-5.0 [facility] Comment on above: Performed By: #### L VN6808 ####[place] [address] Lymphocytes/100 WBC (Bld) 27.3 % Normal 24.0-44.0 [facility] Comment on above: Performed By: #### L SY0780 ####[place] [address] MCH (RBC) [Entitic mass] 32.3 pg Normal 26.0-34.0 [facility] Comment on above: Performed By: #### L [id number] ####[place] [address] MCHC (RBC) [Mass/Vol] 34.7 g/dL Normal 32.0-36.0 [facility] Comment on above: Performed By: #### L EH0146 ####BABATUNDE [place] [id number] MCV (RBC) [Entitic vol] 93.0 fL Normal 80.0-100.0 [facility] Comment on above: Performed By: #### L [id number] ####[place] [address] MDW 18.8 Normal 0.0-20.0 [facility] Comment on above: Performed By: #### L ND9980 ####[place] [address] Monocytes (Bld) [#/Vol] 0.5 10*3/uL Normal 0.0-1.4 [facility] Comment on above: Performed By: #### L UE2944 ####[place] [address] Monocytes/100 WBC (Bld) 10.2 % Normal 2.1-13.3 [facility] Comment on above: Performed By: #### L [id number] ####[place] [address] Neutrophils, Abs. 2.6 10*3/uL Normal 1.5-8.5 [facility] Comment on above: Performed By: #### L AG6028 ####[place] [address] Neutrophils/100 WBC (Bld) 55.3 % Normal 35.0-66.0 [facility] Comment on above: Performed By: #### L HZ0536 ####[place] [address] Platelet Cnt 55 10*3/uL Low 150-450 [facility] Comment on above: Performed By: #### L SL1541 ####[place] [address] Platelet mean volume (Bld) [Entitic vol] 9.5 fL Normal 6.5-10.0 [facility] Comment on above: Performed By: #### L TL8568 ####[place] [address] RBC (Bld) [#/Vol] 3.77 10*6/uL Low 4.00-5.20 [facility] Comment on above: Performed By: #### L TH2062 ####[place] [address] WBC (Bld) [#/Vol] 4.7 10*3/uL Normal 4.5-11.0 [facility] Comment on above: Performed By: #### L LA0790 ####[place] [address] Basophil Abs. 0.0 10*3/uL Normal 0.0-0.1 [facility] Comment on above: Performed By: #### L DZ5094, UFY3892, YKN8735 ####[facility] [place] [address] Basophils/100 WBC (Bld) 0.9 % Normal 0.0-1.0 [facility] Comment on above: Performed By: #### L SP8482, ECX5568, ZWZ7065 ####[place] [address] Differential type Auto Normal [facility] Comment on above: Performed By: #### L QK5144, LLF0001, [id number] ####[facility] [place] [address] Eosinophils (Bld) [#/Vol] 0.3 10*3/uL Normal 0.0-0.5 [facility] Comment on above: Performed By: #### L QY1411, KIK0571, UKC5582 ####[place] [address] Eosinophils/100 WBC (Bld) 5.9 % High 0.3-5.0 [facility] Comment on above: Performed By: #### L KA6711, FIS9791, ZUJ2896 ####[place] [address] Erythrocyte distribution width (RBC) [Ratio] 18.0 % Normal 10.7-18.7 [facility] Comment on above: Performed By: #### L JX9417, HBK9700, SZZ2607 ####[place] [address] Hematocrit (Bld) [Volume fraction] 36.1 % Normal 33.0-51.0 [facility] Comment on above: Performed By: #### L SH3114, NRP0809, KBQ2228 ####[place] [address] Hemoglobin (Bld) [Mass/Vol] 12.6 g/dL Normal 12.0-16.0 [facility] Comment on above: Performed By: #### L AH6432, EOF4121, SVA3565 ####[place] [address] Lymphocytes (Bld) [#/Vol] 1.4 10*3/uL Normal 1.1-5.0 [facility] Comment on above: Performed By: #### L XQ0610, WKE1319, ESQ8960 ####[place] [address] Lymphocytes/100 WBC (Bld) 26.4 % Normal 24.0-44.0 [facility] Comment on above: Performed By: #### L OA4155, FBX5855, NJU8092 ####[place] [address] MCH (RBC) [Entitic mass] 32.6 pg Normal 26.0-34.0 [facility] Comment on above: Performed By: #### L XD0509, TJO1996, SNO5901 ####[place] [address] MCHC (RBC) [Mass/Vol] 35.0 g/dL Normal 32.0-36.0 [facility] Comment on above: Performed By: #### L IN6175, BYI8761, XJV9382 ####[place] [address] MCV (RBC) [Entitic vol] 93.2 fL Normal 80.0-100.0 [facility] Comment on above: Performed By: #### L JP5725, NPX1245, TNR9491 ####[place] [address] MDW 19.9 Normal 0.0-20.0 [facility] Comment on above: Performed By: #### L LW9307, OVE3357, YFI5448 ####[place] [address] Monocytes (Bld) [#/Vol] 0.5 10*3/uL Normal 0.0-1.4 [facility] Comment on above: Performed By: #### L IO7595, BZR6519, SKP7135 ####[place] [address] Monocytes/100 WBC (Bld) 9.8 % Normal 2.1-13.3 [facility] Comment on above: Performed By: #### L CU4450, ITW0544, EYA9649 ####[place] [address] Neutrophils, Abs. 3.1 10*3/uL Normal 1.5-8.5 [facility] Comment on above: Performed By: #### L DX3001, AQU0063, ELD5734 ####[place] [address] Neutrophils/100 WBC (Bld) 57.0 % Normal 35.0-66.0 [facility] Comment on above: Performed By: #### L YG6929, UQV5686, UEA1090 ####[place] [address] Platelet Cnt 54 10*3/uL Low 150-450 [facility] Comment on above: Performed By: #### L VV5901, SNP5494, YPK6301 ####[place] [address] Platelet mean volume (Bld) [Entitic vol] 9.5 fL Normal 6.5-10.0 [facility] Comment on above: Performed By: #### L MG9919, DRO5328, RZU2547 ####BABATUNDE [address] [address] RBC (Bld) [#/Vol] 3.87 10*6/uL Low 4.00-5.20 [facility] Comment on above: Performed By: #### L EZ6862, VDT7315, IGU2810 ####[facility] [address] [place] [address] WBC (Bld) [#/Vol] 5.4 10*3/uL Normal 4.5-11.0 [facility] Comment on above: Performed By: #### L ZJ8727, NJH2657, LNH7522 ####[facility] [address] [place] [address] CBC w/Differentialon 025 Basophils (Bld) [#/Vol] 0.0 10*3/uL 0.0 - 0.1 10*3/uL [facility] Basophils/100 WBC (Bld) 0.9 % 0.0 - 1.0 % [facility] Differential cell count method Nom (Bld) Auto [facility] Eosinophils (Bld) [#/Vol] 0.3 10*3/uL 0.0 - 0.5 10*3/uL [facility] Eosinophils/100 WBC (Bld) 5.9 % High 0.3 - 5.0 % [facility] Erythrocyte distribution width (RBC) [Ratio] 18.0 % 10.7 - 18.7 % [facility] Hematocrit (Bld) [Volume fraction] 36.1 % 33.0 - 51.0 % [facility] Hemoglobin (Bld) [Mass/Vol] 12.6 g/dL 12.0 - 16.0 g/dL [facility] Interpretation and review of laboratory results Abnormal [facility] Lymphocytes (Bld) [#/Vol] 1.4 10*3/uL 1.1 - 5.0 10*3/uL [facility] Lymphocytes/100 WBC (Bld) 26.4 % 24.0 - 44.0 % [facility] MCH (RBC) [Entitic mass] 32.6 pg 26.0 - 34.0 pg [facility] MCHC (RBC) [Mass/Vol] 35.0 g/dL 32.0 - 36.0 g/dL [facility] MCV (RBC) [Entitic vol] 93.2 fL 80.0 - 100.0 fL [facility] Monocyte distribution width Auto (Bld) [Entitic vol] 19.9 0.0 - 20.0 [facility] Monocytes (Bld) [#/Vol] 0.5 10*3/uL 0.0 - 1.4 10*3/uL [facility] Monocytes/100 WBC (Bld) 9.8 % 2.1 - 13.3 % [facility] Neutrophils (Bld) [#/Vol] 3.1 10*3/uL 1.5 - 8.5 10*3/uL [facility] Neutrophils/100 WBC (Bld) 57.0 % 35.0 - 66.0 % [facility] Platelet mean volume (Bld) [Entitic vol] 9.5 fL 6.5 - 10.0 fL [facility] Platelets (Bld) [#/Vol] 54 10*3/uL Low 150 - 450 10*3/uL [facility] RBC (Bld) [#/Vol] 3.87 10*6/uL Low 4.00 - 5.2 0 10*6/uL [facility] WBC (Bld) [#/Vol] 5.4 10*3/uL 4.5 - 11.0 10*3/uL [facility] CKon 12-10-2024 CK [Catalytic activity/Vol] 100 U/L Normal 22-269 [facility] Comment on above: Performed By: #### L CH9923, QTF7830, FOX5196 ####[facility] [address] [place] [address] CK [Catalytic activity/Vol] 100 U/L 22 - 269 [iU]/L [facility] COMPREHENSIVE METABOLIC PANE [place] 12-10-2024 Albumin [Mass/Vol] 2.7 g/dL Low 3.2-5.0 [facility] Comment on above: Performed By: #### L TX5214 ####[place] [address] Albumin/Globulin [Mass ratio] 0.8 {ratio} Normal [facility] Comment on above: Performed By: #### L [id number] ####[place] [address] ALP [Catalytic activity/Vol] 121 U/L Normal 42-121 [facility] Comment on above: Performed By: #### L CE9075 ####[place] [address] ALT [Catalytic activity/Vol] 67 U/L High 10-60 [facility] Comment on above: Performed By: #### L AU8768 ####[place] [address] Anion gap [Moles/Vol] 3 mmol/L Normal [facility] Comment on above: Performed By: #### L BI9948 ####[place] [address] AST [Catalytic activity/Vol] 109 U/L High 10-42 [facility] Comment on above: Performed By: #### L NM8565 ####[place] [address] B/C 9 Low 10-20 [facility] Comment on above: Performed By: #### L PS6021 ####[place] [address] Bilirubin.direct [Mass/Vol] 2.6 mg/dL High 0.2-1.0 [facility] Comment on above: Performed By: #### L MQ1589 ####[place] [address] Calcium [Mass/Vol] 8.6 mg/dL Normal 8.5-10.5 [facility] Comment on above: Performed By: #### L YW1896 ####[place] [address] Chloride [Moles/Vol] 112 mmol/L High 101-111 [facility] Comment on above: Performed By: #### L SG7078 ####BABAT[id number] [place] [address] CO2 [Moles/Vol] 21 mmol/L Normal 21-31 [facility] Comment on above: Performed By: #### L DS0398 ####BABATUNDE [address] [address] Creatinine [Mass/Vol] 0.8 mg/dL Normal 0.4-1.0 [facility] Comment on above: Performed By: #### L DM5326 ####BABATUNDE [address] [address] GFR/1.73 sq M.predicted MDRD (S/P/Bld) [Vol rate/Area] 76 mL/min/{1.73_m2} Normal [facility] Comment on above: Result Comment: *The estimated Glomerular Filtration Rate(EGFR) may not be accurate for children under the age of 18 yrs. To estimate the GFR for -Americans multiply the result provided by 1.21.Stage 1 90 mL/min or greaterStage 2 60-89 mL/minStage 3 30-59 mL/minStage 4 15-29 mL/minStage 5 14 mL/min or less Performed By: #### L ZB5120 ####BABATUNDE [address] [address] Glucose [Mass/Vol] 82 mg/dL Normal 70-110 [facility] Comment on above: Performed By: #### L VH4774 ####BABATUNDE [address] [address] Osmolality [Osmolality] 269 mosm/kg Normal 266-309 [facility] Comment on above: Performed By: #### L HX6671 ####BABATUNDE [address] [address] Potassium [Moles/Vol] 3.8 mmol/L Normal 3.6-5.0 [facility] Comment on above: Performed By: #### L CU3159 ####BABATUNDE [address] [address] Protein [Mass/Vol] 5.9 g/dL Low 6.1-7.8 [facility] Comment on above: Performed By: #### L OU5329 ####[place] [address] Sodium [Moles/Vol] 136 mmol/L Normal 135-145 [facility] Comment on above: Performed By: #### L BX9397 ####BABATUNDE [address] [address] Urea nitrogen [Mass/Vol] 7 mg/dL Normal 2-32 [facility] Comment on above: Performed By: #### L FY7049 ####BABATUNDE [address] [address] Albumin [Mass/Vol] 2.8 g/dL Low 3.2-5.0 [facility] Comment on above: Performed By: #### L ZO4905, YAN9739, TUT9807, GGX9352 ####[place] [address] Albumin/Globulin [Mass ratio] 0.9 {ratio} Normal [facility] Comment on above: Performed By: #### L JS6065, OEP6880, MZL4899, VCS9726 ####[place] [address] ALP [Catalytic activity/Vol] 129 U/L High 42-121 [facility] Comment on above: Performed By: #### L FU9273, FQR1395, ENZ5639, JIA8360 ####[place] [address] ALT [Catalytic activity/Vol] 65 U/L High 10-60 [facility] Comment on above: Performed By: #### L YZ2610, KRM6856, FTJ8635, NMK5338 ####[place] [address] Anion gap [Moles/Vol] 3 mmol/L Normal [facility] Comment on above: Performed By: #### L AQ3784, OGH8384, DER6269, PAZ1668 ####[place] [address] AST [Catalytic activity/Vol] 111 U/L High 10-42 [facility] Comment on above: Performed By: #### L GX3570, KIJ6480, HUM0360, BII8456 ####[place] [address] B/C 6 Low 10-20 [facility] Comment on above: Performed By: #### L BE7628, ESC6596, EOE3948, ZVR7342 ####[place] [address] Bilirubin.direct [Mass/Vol] 2.4 mg/dL High 0.2-1.0 [facility] Comment on above: Performed By: #### L UL9732, YQU4669, IPY7472, DCM3964 ####[address] [address] Calcium [Mass/Vol] 8.7 mg/dL Normal 8.5-10.5 [facility] Comment on above: Performed By: #### L RR9507, ANB2854, LZN6200, DZT0260 ####[place] [address] Chloride [Moles/Vol] 112 mmol/L High 101-111 [facility] Comment on above: Performed By: #### L IB9966, SBH6283, NTH7073, BMV7332 ####[place] [address] CO2 [Moles/Vol] 20 mmol/L Low 21-31 [facility] Comment on above: Performed By: #### L VR2211, QEC4556, GBG4885, GQR3137 ####[place] [address] Creatinine [Mass/Vol] 1.0 mg/dL Normal 0.4-1.0 [facility] Comment on above: Performed By: #### L VP8876, MKX1693, LOC5666, GJU4954 ####[place] [address] GFR/1.73 sq M.predicted MDRD (S/P/Bld) [Vol rate/Area] 58 mL/min/{1.73_m2} Normal [facility] Comment on above: Result Comment: *The estimated Glomerular Filtration Rate(EGFR) may not be accurate for children under the age of 18 yrs. To estimate the GFR for -Americans multiply the result provided by 1.21.Stage 1 90 mL/min or greaterStage 2 60-89 mL/minStage 3 30-59 mL/minStage 4 15-29 mL/minStage 5 14 mL/min or less Performed By: #### L PG7380, KPO2685, LJO9482, XNB9628 ####[place] [address] Glucose [Mass/Vol] 87 mg/dL Normal 70-110 [facility] Comment on above: Performed By: #### L LD0145, XFL4783, KTK2014, VLZ2473 ####[place] [address] Osmolality [Osmolality] 267 mosm/kg Normal 266-309 [facility] Comment on above: Performed By: #### L SQ9558, TAO7132, WNO1548, VYW8956 ####BABATUNDE [address] [address] Potassium [Moles/Vol] 3.9 mmol/L Normal 3.6-5.0 [facility] Comment on above: Performed By: #### L VG1001, DEG8312, VLL6318, WGQ7449 ####BABATUNDE [address] [address] Protein [Mass/Vol] 5.9 g/dL Low 6.1-7.8 [facility] Comment on above: Performed By: #### L YR4024, LWP5226, SMK6091, WDT6857 ####BABATUNDE [address] [address] Sodium [Moles/Vol] 135 mmol/L Normal 135-145 [facility] Comment on above: Performed By: #### L KW3913, QTM7137, CTF6785, XWV6255 ####[facility] [address] [place] [address] Urea nitrogen [Mass/Vol] 6 mg/dL Normal 2-32 [facility] Comment on above: Performed By: #### L ZU1393, XDF9648, MFA0820, UOT8141 ####[facility] [address] [place] [address] Comprehensive Metabolic Pane merritt 12-10-2024 Albumin [Mass/Vol] 2.7 g/dL Low 3.2 - 5.0 g/dL [facility] Albumin/Globulin [Mass ratio] 0.8 {ratio} [facility] ALP [Catalytic activity/Vol] 121 U/L 42 - 121 [iU]/L [facility] ALT [Catalytic activity/Vol] 67 U/L High 10 - 60 [iU]/L [facility] Anion gap [Moles/Vol] 3 mmol/L [facility] AST [Catalytic activity/Vol] 109 U/L High 10 - 42 [iU]/L [facility] Bilirubin [Mass/Vol] 2.6 mg/dL High 0.2 - 1 .0 mg/dL [facility] Calcium [Mass/Vol] 8.6 mg/dL 8.5 - 10. 5 mg/dL [facility] Chloride [Moles/Vol] 112 mmol/L High 101 - 1 11 mmol/L [facility] CO2 [Moles/Vol] 21 mmol/L 21 - 31 mmol/L [facility] Creatinine [Mass/Vol] 0.8 mg/dL 0.4 - 1.0 mg/dL [facility] GFR/1.73 sq M.predicted MDRD (S/P/Bld) [Vol rate/Area] 76 mL/min/{1.73_m2} [facility] Comment on above: *The estimated Glome rular Filtration Rate(EGFR) may not be accurate for children under the age of 18 yrs. To estimate the GFR for -Americans multiply the result provided by 1.21. Stage 1 90 mL/min or greater Stage 2 60-89 mL/min Stage 3 30-59 mL/min Stage 4 15-29 mL/min Stage 5 14 mL/min or less Glucose [Mass/Vol] 82 mg/dL 70 - 110 mg/dL [facility] Interpretation and review of laboratory results Abnormal [facility] Osmolality Calc [Osmolality] 269 266 - 309 [facility] Potassium [Moles/Vol] 3.8 mmol/L 3.6 - 5.0 mmol/L [facility] Protein [Mass/Vol] 5.9 g/dL Low 6.1 - 7.8 g/dL [facility] Sodium [Moles/Vol] 136 mmol/L 135 - 145 mmol/L [facility] Urea nitrogen [Mass/Vol] 7 mg/dL 2 - 32 mg/dL [facility] Urea nitrogen/Creatinine [Mass ratio] 9 mg/mg Low 10 - 20 [facility] Albumin [Mass/Vol] 2.8 g/dL Low 3.2 - 5.0 g/dL [facility] Albumin/Globulin [Mass ratio] 0.9 {ratio} [facility] ALP [Catalytic activity/Vol] 129 U/L High 42 - 121 [iU]/L [facility] ALT [Catalytic activity/Vol] 65 U/L High 10 - 60 [iU]/L [facility] Anion gap [Moles/Vol] 3 mmol/L [facility] AST [Catalytic activity/Vol] 111 U/L High 10 - 42 [iU]/L [facility] Bilirubin [Mass/Vol] 2.4 mg/dL High 0.2 - 1 .0 mg/dL [facility] Calcium [Mass/Vol] 8.7 mg/dL 8.5 - 10. 5 mg/dL [facility] Chloride [Moles/Vol] 112 mmol/L High 101 - 1 11 mmol/L [facility] CO2 [Moles/Vol] 20 mmol/L Low 21 - 31 mmol/L [facility] Creatinine [Mass/Vol] 1.0 mg/dL 0.4 - 1.0 mg/dL [facility] GFR/1.73 sq M.predicted MDRD (S/P/Bld) [Vol rate/Area] 58 mL/min/{1.73_m2} [facility] Comment on above: *The estimated Glome rular Filtration Rate(EGFR) may not be accurate for children under the age of 18 yrs. To estimate the GFR for -Americans multiply the result provided by 1.21. Stage 1 90 mL/min or greater Stage 2 60-89 mL/min Stage 3 30-59 mL/min Stage 4 15-29 mL/min Stage 5 14 mL/min or less Glucose [Mass/Vol] 87 mg/dL 70 - 110 mg/dL [facility] Interpretation and review of laboratory results Abnormal [facility] Osmolality Calc [Osmolality] 267 266 - 309 [facility] Potassium [Moles/Vol] 3.9 mmol/L 3.6 - 5.0 mmol/L [facility] Protein [Mass/Vol] 5.9 g/dL Low 6.1 - 7.8 g/dL [facility] Sodium [Moles/Vol] 135 mmol/L 135 - 145 mmol/L [facility] Urea nitrogen [Mass/Vol] 6 mg/dL 2 - 32 mg/dL [facility] Urea nitrogen/Creatinine [Mass ratio] 6 mg/mg Low 10 - 20 [facility] FLUID CELL COUNTon 5 Character (U) Slt Hazy Normal [facility] Comment on above: Performed By: #### L IH6310, ZZU0397, CVT8441, WYD8115, ZWG8931 ####[facility] [address] [place] [address] Color (U) Yellow Normal [facility] Comment on above: Performed By: #### L XC3042, GJB4825, UIR4020, AAP9480, TGW1795 ####[facility] [address] [place] [address] FLD COMMENT see below Normal [facility] Comment on above: Result Comment: Refe rence ranges & other method performance specifications have not beenestablished for this body fluid type. The test result must be integratedinto the clinical context for interpretation. Performed By: #### L LH5736, UXS7586, VPF6775, YXS5715, MFU8172 ####[place] [address] RBC 1,023 uL [facility] Comment on above: Performed By: #### L HM6424, SNK6311, LYA5607, ZHH0175, EYN4651 ####[place] [address] SOURCE Ascites Normal [facility] Comment on above: Performed By: #### L GW4081, MGS4606, HML2623, TCP7524, VBG3445 ####[place] [address] TOTAL NUC. CELLS 172 uL [facility] Comment on above: Result Comment: RESU LTS OF COUNT MAY BE INACCURATE IF SPECIMEN IS PARTIALLYCLOTTED OR EXHIBIT CELL CLUMPING. Performed By: #### L KK6428, NBW6428, UWR6525, XHT2347, KLE5837 ####[place] [address] TUBE NUMBER Syringe Normal [facility] Comment on above: Performed By: #### L CC3641, SEL4925, DTQ5956, JDC8974, SAQ2381 ####[place] [address] VOLUME 60.0 [facility] Comment on above: Performed By: #### L LE4169, QUG3906, TOC1551, XBS3519, PWA7608 ####[place] [address] FLUID CULTUREon 12-10-2024 FLUID CULTURE Bacteria identified in Body fluid by Culture FLUID CULTURE: No Growth - Preliminary Microscopic observation [Identifier] in Specimen by Gram stain GRAM STAIN SMEAR: Rare WBC'S. No organisms seen. [facility] Comment on above: Performed By: #### L EM1292 ####[place] [address] Fingerstick Glucoseon 2024 Glucose [Mass/Vol] 81 mg/dL 70 - 110 mg/dL [facility] GLUCOSE, FLUIDon 12-10-2024 GLUCOSE, FLUID 94 mg/dL [facility] Comment on above: Result Comment: Refe rence ranges & other method performance specifications have not beenestablished for this body fluid type. The test result must be integratedinto the clinical context for interpretation. Performed By: #### L XN2539, TQQ5023, OPX8427, NWZ0387, FDC3836 ####[facility] [address] [place] [address] GLUCOSE, GLUCOMETERon 2024 Glucose [Mass/Vol] 81 mg/dL Normal 70-110 [facility] Comment on above: Performed By: #### L VZ8744 ####[address] [address] Glucose Body Fluidon 025 Glucose (Body fld) [Mass/Vol] 94 mg/dL [facility] Comment on above: Reference ranges & o ther method performance specifications have not been established for this body fluid type. The test result must be integrated into the clinical context for interpretation. LACTIC ACIDon 12-10-2024 Lactate [Moles/Vol] 0.6 mmol/L Normal 0.5-1.9 [facility] Comment on above: Performed By: #### L FB0665, PEH4525, NMC8430, YWE5619 ####[place] [address] LDH, FLUIDon 12-10-2024 LDH FLUID 44 [iU]/L Low 60-160 [facility] Comment on above: Performed By: #### L IF3489, IMQ2192, TSU7981, STP2840, HNX7665 ####[place] [address] LDH, Fluidon 12-10-2024 Interpretation and review of laboratory results Abnormal [facility] LDH (Body fld) [Catalytic activity/Vol] 44 [iU]/L Low 60 - 160 [iU]/L [facility] LIPASEon 12-10-2024 Lipase [Catalytic activity/Vol] 37 U/L Normal 11-82 [facility] Comment on above: Performed By: #### L BB4747, JZC3386, KDL5202, LNL6241 ####[id number] [place] [address] Lactic Acid, Venouson 2024 Lactate [Moles/Vol] 0.6 mmol/L 0.5 - 1. 9 mmol/L [facility] Lipaseon 12-10-2024 Lipase [Catalytic activity/Vol] 37 U/L 11 - 82 U/L [facility] NON HOME CHILD CARE PROVIDER CASESon 12-10-2024 NON HOME CHILD CARE PROVIDER CASES Normal [facility] Comment on above: Performed By: #### L BE1070 ####[place] [address] No Panel Informationon 12-10 [facility] PROCALCITONIN, Son PROCALCITONIN, S 0.09 ng/mL Normal [facility] Comment on above: Result Comment: . <0 .05 ng/mL Healthy individuals. <0.50 ng/mL Systemic infection (sepsis) is not likely. 0.50 - 2.00 ng/mL Systemic infection (sepsis) is possible, but other conditions are known to induce PCT as well. 2.00 - 10.00 ng/mL Systemic infection (sepsis) is likely, unless other causes are known. >=10.00 ng/mL Important systemic inflammatory response, almost exclusively due to severe bacterial sepsis or septic shock. Performed By: #### L JC2980, ARN9265, XMF7321, SRJ4211 ####[place] [address] PT AND APTTon 12-10-2024 aPTT Coag (Bld) [Time] 41.3 s High 24.2-34.2 [facility] Comment on above: Performed By: #### L SD7590, ETQ2437 ####[place] [address] INR Coag (PPP) [Relative time] 1.7 {INR} High 0.9-1.1 [facility] Comment on above: LEVEL OF THERAPY IND ICATIONS TARGET INR RANGE STANDARD DOSE TREATMENT OF VENOUS THROMBOSIS 2.0-3.0 TREATMENT OF PULMONARY EMBOLUS PROPHYLAXIS AGAINST VENOUS THROMBOSIS BY SYSTEMIC EMBOLIZATION . HIGH DOSE HIGH RISK PATIENTS WITH 2.5-3.5 MECHANICAL HEART VALVES Result Comment: CORRIE Luciano OF THERAPY INDICATIONS TARGET INR RANGESTANDARD DOSE TREATMENT OF VENOUS THROMBOSIS 2.0-3.0 TREATMENT OF PULMONARY EMBOLUS PROPHYLAXIS AGAINST VENOUS THROMBOSIS BY SYSTEMIC EMBOLIZATION .HIGH DOSE HIGH RISK PATIENTS WITH 2.5-3.5 MECHANICAL HEART VALVES Performed By: #### L RR2542, FLT6225 ####[facility] [address] [place] [address] PT Coag (PPP) [Time] 20.1 s High 10.1-13.7 [facility] Comment on above: Performed By: #### L LD6447, UYM0300 ####[facility] [address] [place] [address] PT/APTT/INRon 12-10-2024 aPTT Coag (PPP) [Time] 41.3 s High 24.2 - 34.2 s [facility] Interpretation and review of laboratory results Abnormal [facility] Procalcitonin, QN, Son 12-10 Procalcitonin [Mass/Vol] 0.09 ng/mL [facility] Comment on above: . <0.05 ng/mL Healthy individuals. <0.50 ng/mL Systemic infection (sepsis) is not likely. 0.50 - 2.00 ng/mL Systemic infection (sepsis) is possible, but other conditions are known to induce PCT as well. 2.00 - 10.00 ng/mL Systemic infection (sepsis) is likely, unless other causes are known. >=10.00 ng/mL Important systemic inflammatory response, almost exclusively due to severe bacterial sepsis or septic shock. [facility] Protein Body Fluidon 025 Protein (Body fld) [Mass/Vol] 961.0 mg/dL [facility] Specimen source Nom (Body fld) Ascites [facility] Protein, Fluidon 12-10-2024 Protein, Fluid 961.0 mg/dL Normal [facility] Comment on above: Performed By: #### L DS1649, BLV6404, TTG5017, ZFF7353, AGN7217 ####[facility] [address] [place] [address] SOURCE Ascites Normal [facility] Comment on above: Performed By: #### L KY1944, XZQ7029, KOO5681, NXG9129, POV4753 ####[facility] [address] [place] [address] UA for Infection (Reflex Cul ture)on 12-10-2024 Bacteria Auto (Urine sed) [#/Area] None Seen NONE SEEN [HPF] [facility] Bilirubin (U) [Mass/Vol] Negative NEGATIVE mg/dL [facility] Clarity Refractometry automated (U) Turbid Abnormal CLEAR [facility] Color (U) Yellow YELLOW [facility] Epithelial cells.non-squamous Auto (Urine sed) [#/Area] [HPF] NONE SEEN [HPF] [facility] Epithelial cells.squamous Auto (Urine sed) [#/Area] [HPF] Abnormal 3 - 5 [HPF] [facility] Glucose Auto test strip (U) [Mass/Vol] Negative NEGATIVE mg/dL [facility] Hemoglobin Auto test strip (U) [Mass/Vol] 3+ Abnormal NEGATIVE mg/dL [facility] Interpretation and review of laboratory results Abnormal [facility] Ketones (U) [Mass/Vol] Negative NEGATIVE mg/d L [facility] Mucus Auto (Urine sed) [#/Area] Rare NONE SEEN [HPF] [facility] Nitrite Auto test strip Ql (U) Negative NEGATIVE mg/dL [facility] pH (U) 6.0 [pH] 5.0 - 9.0 [facility] Protein (U) [Mass/Vol] Trace Abnormal NEGATIVE mg/d L [facility] RBC LM.HPF (Urine sed) [#/Area] INNUM Abnormal 1 - 3 [HPF] [facility] Specific gravity Refractometry automated (U) [Rel density] 1.032 1.005 - 1.030 [facility] Urobilinogen (U) [Mass/Vol] NINF - 2.0 [facility] WBC Auto (Urine sed) [#/Area] [HPF] Abnormal 1 - 3 [HPF] [facility] WBC Auto test strip (U) [#/Vol] Negative NEGATIVE [facility] UA w/ Culture reflexon 12-10 UR BACTERIA None Seen Normal NONE SEEN [facility] Comment on above: Performed By: #### L PF5946 ####[place] [address] UR MUCOUS Rare Normal NONE SEEN [facility] Comment on above: Performed By: #### L PY3622 ####[place] [address] UR NON-SQUAMOUS EPI < 1 Normal NONE SEEN [facility] Comment on above: Performed By: #### L WW7284 ####[place] [address] UR RBC INNUM Abnormal 1-3 [facility] Comment on above: Performed By: #### L WA3232 ####[place] [address] UR SQUAMOUS EPI 21 - 50 Abnormal 3-5 [facility] Comment on above: Performed By: #### L DQ6937 ####[place] [address] UR WBC 6 - 10 Abnormal 1-3 [facility] Comment on above: Performed By: #### L IR5532 ####[place] [address] UR BILIRUBIN Negative Normal NEGATIVE [facility] Comment on above: Performed By: #### L [id number] ####[place] [address] UR BLOOD 3 + mg/dL Abnormal NEGATIVE [facility] Comment on above: Performed By: #### L GQ3825 ####[place] [address] UR CLARITY Turbid Abnormal CLEAR [facility] Comment on above: Performed By: #### L IU7378 ####[place] [address] UR COLOR Yellow Normal YELLOW [facility] Comment on above: Performed By: #### L SU5717 ####[place] [address] UR GLUCOSE Negative Normal NEGATIVE [facility] Comment on above: Performed By: #### L KV1848 ####[place] [address] UR KETONE Negative Normal NEGATIVE [facility] Comment on above: Performed By: #### L NU5473 ####[place] [address] UR LEUKOCYTE Negative Normal NEGATIVE [facility] Comment on above: Performed By: #### L PF4928 ####[place] [address] UR NITRITE Negative Normal NEGATIVE [facility] Comment on above: Performed By: #### L JK8701 ####[place] [address] UR PH 6.0 Normal 5.0-9.0 [facility] Comment on above: Performed By: #### L ZZ8678 ####[place] [address] UR PROTEIN Trace Abnormal NEGATIVE [facility] Comment on above: Performed By: #### L RM8091 ####[place] [address] UR SP GRAVITY 1.032 Normal 1.005-1.030 [facility] Comment on above: Performed By: #### L XZ6609 ####[place] [address] UR UROBILINOGEN < 2.0 Normal <2.0 [facility] Comment on above: Performed By: #### L KM2343 ####[place] [address] US Abdomen RUQon 12-10-2024 [facility] [address] [place] [address] Radiology PATIENT NAME: Carolina Hightower MR#: [id number] PROCEDURE DATE: 12/10/2024 ROOM#: [id number] ORDERING PHYS: Miranda Mootz PROCEDURE: Right upper quadrant ultrasound: CLINICAL INFORMATION: cirrhosis, elevated AFP. COMPARISON: CT 09/04/2024. TECHNIQUE: Real-time, astorga-scale ultrasound imaging of the gallbladder/right upper quadrant was performed. FINDINGS: The gallbladder is distended. There is gallbladder wall thickening at 6 mm. There is pericholecystic fluid. Negative sonographic Wellington's sign is reported at the time of examination. The common duct is measured at 7.2 mm. The liver is heterogeneous and nodular consistent with cirrhosis. There is ascites. There is enlargement of the main portal vein to 1.9 cm. No discrete liver lesions are identified. The right kidney shows no evidence hydronephrosis. The right renal echotexture is within normal limits. The visualized portion of the pancreas is unremarkable. IMPRESSION: Gallbladder distention with no definite stones identified. There is gallbladder wall thickening and pericholecystic fluid. This could be related to surrounding ascites/protein state. Clinical correlation is suggested. Heterogeneous and nodular liver consistent with cirrhosis. Ascites. Portal vein enlargement raising the question of portal hypertension.. THIS IS AN ELECTRONICALLY VERIFIED REPORT 12/10/2024 2:10 PM: MD Saud Zimmer MD arlen TD: 12/10/2024 JOB #: [id number] Radiology Page 1 of 1 COPY [facility] Saud Pierre MD - 12/10/2024 [place] [address] Radiology PATIENT NAME: Carolina Hightower MR#: [id number] PROCEDURE DATE: 12/10/2024 ROOM#: [id number] ORDERING PHYS: Miranda Mootz PROCEDURE: Right upper quadrant ultrasound: CLINICAL INFORMATION: cirrhosis, elevated AFP. COMPARISON: CT 09/04/2024. TECHNIQUE: Real-time, astorga-scale ultrasound imaging of the gallbladder/right upper quadrant was performed. FINDINGS: The gallbladder is distended. There is gallbladder wall thickening at 6 mm. There is pericholecystic fluid. Negative sonographic Wellington's sign is reported at the time of examination. The common duct is measured at 7.2 mm. The liver is heterogeneous and nodular consistent with cirrhosis. There is ascites. There is enlargement of the main portal vein to 1.9 cm. No discrete liver lesions are identified. The right kidney shows no evidence hydronephrosis. The right renal echotexture is within normal limits. The visualized portion of the pancreas is unremarkable. IMPRESSION: Gallbladder distention with no definite stones identified. There is gallbladder wall thickening and pericholecystic fluid. This could be related to surrounding ascites/protein state. Clinical correlation is suggested. Heterogeneous and nodular liver consistent with cirrhosis. Ascites. Portal vein enlargement raising the question of portal hypertension.. THIS IS AN ELECTRONICALLY VERIFIED REPORT 12/10/2024 2:10 PM: MD Saud Zimmer MD jp TD: 12/10/2024 JOB #: [id number] Radiology Page 1 of 1 COPY [facility] Radiology Study observation (narrative) [facility] US Abdomen RUQOrdered By: Thania Pierre on 12-10-2024 [facility] Work Phone: US RUQ ABDOMENon 12-10-2024 US RUQ ABDOMEN Normal [facility] VASCULAR PROCEDUREon 025 VASCULAR PROCEDURE Normal [facility] Vascular Procedureon 025 : Technically successful ultrasound-guided therapeutic paracentesis with aspiration of 450 cc of cloudy mike fluid. SIGNED: Ginger Milton MD 12/10/2024 9:31 AM [facility] INTERVENTIONAL RADIOLOGY REPORT PATIENT: Carolina Hightower DATE OF : 1975 PROCEDURE: Ultrasound-guided therapeutic paracentesis. INDICATION: Symptomatic ascites. COMPLICATIONS: none SEDATION: none TECHNIQUE: Potential risk and benefits were discussed with and informed consent was obtained. The patient was brought to the angiography lab and placed in a supine position. Sonographic evaluation of the abdomen demonstrated a small amount of free peritoneal fluid. Sonographic images were obtained and saved to the patient's chart. Skin site on the right abdomen was marked. The area was prepped and draped in a sterile fashion with local anesthesia provided using 1% buffered lidocaine. A 6.5 Swedish non-locking Resolve pigtail catheter was advanced into the peritoneal space. 450 cc of cloudy mike fluid were obtained. The catheter was removed intact. A dry sterile dressing was applied to the puncture site. The patient tolerated the procedure well and there were no immediate complications. The patient was given no IV albumin. FINDINGS: Small amount of free peritoneal fluid/ascites. [facility] Radiology Study observation (narrative) [facility] Vascular Procedureon 025 [facility] Radiology Study observation (narrative) [facility] VASCULAR PROCEDUREon 025 VASCULAR PROCEDURE Normal [facility] VASCULAR PROCEDUREon 025 VASCULAR PROCEDURE Normal [facility] CBC w/ Differentialon 2024 Basophil Abs. 0.0 10*3/uL Normal 0.0-0.1 [facility] Comment on above: Order Comment: Rodriguez d to and read back by george cao (mercedes), at 16:04 on 11/19/2024, PJP Performed By: #### L EG5328, CSH7161, GNL7948 ####[facility] [address] [place] [address] Basophils/100 WBC (Bld) 0.4 % Normal 0.0-1.0 [facility] Comment on above: Order Comment: Rodriguez d to and read back by george cao (mercedes), at 16:04 on 11/19/2024, PJP Performed By: #### L NB6581, SZY6414, MLO7388 ####[facility] [address] [place] [address] Differential type Auto Normal [facility] Comment on above: Order Comment: Rodriguez d to and read back by george cao (mercedes), at 16:04 on 11/19/2024, PJP Performed By: #### L FH3959, PHF9464, AJR5813 ####[facility] [address] [place] [address] Eosinophils (Bld) [#/Vol] 0.2 10*3/uL Normal 0.0-0.5 [facility] Comment on above: Order Comment: Rodriguez d to and read back by george cao (mercedes), at 16:04 on 11/19/2024, PJP Performed By: #### L RR1710, CBB3059, CWZ4180 ####[place] [address] Eosinophils/100 WBC (Bld) 3.7 % Normal 0.3-5.0 [facility] Comment on above: Order Comment: Rodriguez d to and read back by george cao (mercedes), at 16:04 on 11/19/2024, PJP Performed By: #### L WR7580, DQI3746, OML1712 ####[place] [address] Erythrocyte distribution width (RBC) [Ratio] 16.5 % Normal 10.7-18.7 [facility] Comment on above: Order Comment: Rodriguez d to and read back by george cao (mercedes), at 16:04 on 11/19/2024, PJP Performed By: #### L YP3940, XHP2959, RDB4979 ####[place] [address] Hematocrit (Bld) [Volume fraction] 39.7 % Normal 33.0-51.0 [facility] Comment on above: Order Comment: Rodriguez d to and read back by george cao (mercedes), at 16:04 on 11/19/2024, PJP Performed By: #### L YJ1715, SRU0396, YPY7309 ####[place] [address] Hemoglobin (Bld) [Mass/Vol] 13.4 g/dL Normal 12.0-16.0 [facility] Comment on above: Order Comment: Rodriguez d to and read back by george cao (plat), at 16:04 on 11/19/2024, PJP Performed By: #### L LM6473, ABR4721, ROH2998 ####[place] [address] Lymphocytes (Bld) [#/Vol] 1.4 10*3/uL Normal 1.1-5.0 [facility] Comment on above: Order Comment: Rodriguez d to and read back by george cao (plat), at 16:04 on 11/19/2024, PJP Performed By: #### L UK0824, NPH1341, AIA3407 ####[place] [address] Lymphocytes/100 WBC (Bld) 22.1 % Low 24.0-44.0 [facility] Comment on above: Order Comment: Rodriguez d to and read back by george cao (plat), at 16:04 on 11/19/2024, PJP Performed By: #### L QX8638, LRZ1394, GDA3813 ####[place] [address] MCH (RBC) [Entitic mass] 31.5 pg Normal 26.0-34.0 [facility] Comment on above: Order Comment: Rodriguez d to and read back by george cao (plat), at 16:04 on 11/19/2024, PJP Performed By: #### L AD0743, FTM5808, WUV8273 ####[place] [address] MCHC (RBC) [Mass/Vol] 33.7 g/dL Normal 32.0-36.0 [facility] Comment on above: Order Comment: Rodriguez d to and read back by george cao (mercedes), at 16:04 on 11/19/2024, PJP Performed By: #### L PK0452, YLK5310, JMM0558 ####[place] [address] MCV (RBC) [Entitic vol] 93.5 fL Normal 80.0-100.0 [facility] Comment on above: Order Comment: Rodriguez d to and read back by george cao (plat), at 16:04 on 11/19/2024, PJP Performed By: #### L VZ8580, KVS9353, LLL3532 ####[place] [address] MDW 20.4 High 0.0-20.0 [facility] Comment on above: Order Comment: Rodriguez d to and read back by george cao (plat), at 16:04 on 11/19/2024, PJP Performed By: #### L JM7367, ZYF0159, ZWL6172 ####[place] [address] Monocytes (Bld) [#/Vol] 0.8 10*3/uL Normal 0.0-1.4 [facility] Comment on above: Order Comment: Rodriguez d to and read back by george cao (plat), at 16:04 on 11/19/2024, PJP Performed By: #### L KF0323, EHT6603, PWW8083 ####[place] [address] Monocytes/100 WBC (Bld) 11.9 % Normal 2.1-13.3 [facility] Comment on above: Order Comment: Rodriguez d to and read back by george cao (plat), at 16:04 on 11/19/2024, PJP Performed By: #### L YD1324, ZFT3319, GPI2895 ####[place] [address] Neutrophils, Abs. 3.9 10*3/uL Normal 1.5-8.5 [facility] Comment on above: Order Comment: Rodriguez d to and read back by george cao (mercedes), at 16:04 on 11/19/2024, PJP Performed By: #### L NK9789, QML4890, WEV4495 ####[place] [address] Neutrophils/100 WBC (Bld) 61.9 % Normal 35.0-66.0 [facility] Comment on above: Order Comment: Rodriguez d to and read back by george cao (plat), at 16:04 on 11/19/2024, PJP Performed By: #### L CC8852, OAI8410, QNQ0937 ####[place] [address] Platelet Cnt 44 10*3/uL Critically low 150-450 [facility] Comment on above: Order Comment: Rodriguez d to and read back by george cao (plat), at 16:04 on 11/19/2024, PJP Performed By: #### L DY6068, BJW4692, YIV0377 ####[place] [address] Platelet mean volume (Bld) [Entitic vol] 9.1 fL Normal 6.5-10.0 [facility] Comment on above: Order Comment: Rodriguez d to and read back by george cao (plat), at 16:04 on 11/19/2024, PJP Performed By: #### L HT1484, WIA9338, XOB2908 ####[place] [address] RBC (Bld) [#/Vol] 4.25 10*6/uL Normal 4.00-5.20 [facility] Comment on above: Order Comment: Rodriguez d to and read back by george cao (mercedes), at 16:04 on 11/19/2024, PJP Performed By: #### L IG6127, ECP8316, DPG3586 ####[place] [address] WBC (Bld) [#/Vol] 6.4 10*3/uL Normal 4.5-11.0 [facility] Comment on above: Order Comment: Rodriguez d to and read back by george cao (mercedes), at 16:04 on 11/19/2024, PJP Performed By: #### L BQ2338, OFG0663, KRQ4403 ####[place] [address] CBC w/Differentialon 025 Basophils (Bld) [#/Vol] 0.0 10*3/uL 0.0 - 0.1 10*3/uL [facility] Basophils/100 WBC (Bld) 0.4 % 0.0 - 1.0 % [facility] Differential cell count method Nom (Bld) Auto [facility] Eosinophils (Bld) [#/Vol] 0.2 10*3/uL 0.0 - 0.5 10*3/uL [facility] Eosinophils/100 WBC (Bld) 3.7 % 0.3 - 5.0 % [facility] Erythrocyte distribution width (RBC) [Ratio] 16.5 % 10.7 - 18.7 % [facility] Hematocrit (Bld) [Volume fraction] 39.7 % 33.0 - 51.0 % [facility] Hemoglobin (Bld) [Mass/Vol] 13.4 g/dL 12.0 - 16.0 g/dL [facility] Lymphocytes (Bld) [#/Vol] 1.4 10*3/uL 1.1 - 5.0 10*3/uL [facility] Lymphocytes/100 WBC (Bld) 22.1 % Low 24.0 - 44.0 % [facility] MCH (RBC) [Entitic mass] 31.5 pg 26.0 - 34.0 pg [facility] MCHC (RBC) [Mass/Vol] 33.7 g/dL 32.0 - 36.0 g/dL [facility] MCV (RBC) [Entitic vol] 93.5 fL 80.0 - 100.0 fL [facility] Monocyte distribution width Auto (Bld) [Entitic vol] 20.4 High 0.0 - 20.0 [facility] Monocytes (Bld) [#/Vol] 0.8 10*3/uL 0.0 - 1.4 10*3/uL [facility] Monocytes/100 WBC (Bld) 11.9 % 2.1 - 13.3 % [facility] Neutrophils (Bld) [#/Vol] 3.9 10*3/uL 1.5 - 8.5 10*3/uL [facility] Neutrophils/100 WBC (Bld) 61.9 % 35.0 - 66.0 % [facility] Platelet mean volume (Bld) [Entitic vol] 9.1 fL 6.5 - 10.0 fL [facility] Platelets (Bld) [#/Vol] 44 10*3/uL Critically low 150 - 450 10*3/uL [facility] RBC (Bld) [#/Vol] 4.25 10*6/uL 4.00 - 5.2 0 10*6/uL [facility] WBC (Bld) [#/Vol] 6.4 10*3/uL 4.5 - 11.0 10*3/uL [facility] Called to and read b ack by george perez), at 16:04 on 11/19/2024, PJP [facility] COMPREHENSIVE METABOLIC PANE [place] 11-19-2024 Albumin [Mass/Vol] 3.0 g/dL Low 3.2-5.0 [facility] Comment on above: Performed By: #### L JU1062, VHP2930, KWT9591 ####[place] [address] Albumin/Globulin [Mass ratio] 0.9 {ratio} Normal [facility] Comment on above: Performed By: #### L LX8143, OAZ8759, DLZ2166 ####[place] [address] ALP [Catalytic activity/Vol] 140 U/L High 42-121 [facility] Comment on above: Performed By: #### L YA3314, NCI2534, COB2564 ####[place] [address] ALT [Catalytic activity/Vol] 48 U/L Normal 10-60 [facility] Comment on above: Performed By: #### L ZT1339, VPC8721, LTH7514 ####[place] [address] Anion gap [Moles/Vol] 3 mmol/L Normal [facility] Comment on above: Performed By: #### L JA8330, LTP4412, DVJ5477 ####[place] [address] AST [Catalytic activity/Vol] 68 U/L High 10-42 [facility] Comment on above: Performed By: #### L EF4408, EVK5907, VIO9451 ####[place] [address] B/C 16 Normal 10-20 [facility] Comment on above: Performed By: #### L AF4636, IKA9993, NWS1204 ####[place] [address] Bilirubin.direct [Mass/Vol] 1.8 mg/dL High 0.2-1.0 [facility] Comment on above: Performed By: #### L SQ7562, QGM2152, JSF8318 ####[place] [address] Calcium [Mass/Vol] 7.9 mg/dL Low 8.5-10.5 [facility] Comment on above: Performed By: #### L PA6032, JYZ6718, NAW4012 ####[place] [address] Chloride [Moles/Vol] 109 mmol/L Normal 101-111 [facility] Comment on above: Performed By: #### L JK3173, CPN2999, OIG1424 ####[place] [address] CO2 [Moles/Vol] 24 mmol/L Normal 21-31 [facility] Comment on above: Performed By: #### L TH6659, MEP2259, ECD0640 ####[place] [address] Creatinine [Mass/Vol] 1.2 mg/dL High 0.4-1.0 [facility] Comment on above: Performed By: #### L JT0976, GMM7563, KKY2736 ####[place] [address] GFR/1.73 sq M.predicted MDRD (S/P/Bld) [Vol rate/Area] 47 mL/min/{1.73_m2} Normal [facility] Comment on above: *The estimated Glome rular Filtration Rate(EGFR) may not be accurate for children under the age of 18 yrs. To estimate the GFR for -Americans multiply the result provided by 1.21. Stage 1 90 mL/min or greater Stage 2 60-89 mL/min Stage 3 30-59 mL/min Stage 4 15-29 mL/min Stage 5 14 mL/min or less Result Comment: *The estimated Glomerular Filtration Rate(EGFR) may not be accurate for children under the age of 18 yrs. To estimate the GFR for -Americans multiply the result provided by 1.21.Stage 1 90 mL/min or greaterStage 2 60-89 mL/minStage 3 30-59 mL/minStage 4 15-29 mL/minStage 5 14 mL/min or less Performed By: #### L QZ0441, ZQZ6106, BSF2167 ####[place] [address] [address] Glucose [Mass/Vol] 112 mg/dL High 70-110 [facility] Comment on above: Performed By: #### L NA9165, NTB5186, TXE9629 ####[place]AB[place] [address] [address] Osmolality [Osmolality] 275 mosm/kg Normal 266-309 [facility] Comment on above: Performed By: #### L LD0446, UTT8928, PYF6064 ####[place] [address] [address] Potassium [Moles/Vol] 4.1 mmol/L Normal 3.6-5.0 [facility] Comment on above: Performed By: #### L EL3428, JOI0700, TWR6789 ####[place] [address] [address] Protein [Mass/Vol] 6.2 g/dL Normal 6.1-7.8 [facility] Comment on above: Performed By: #### L XG0134, ZFR5582, RUG4353 ####[place]AB[place] [address] [address] Sodium [Moles/Vol] 136 mmol/L Normal 135-145 [facility] Comment on above: Performed By: #### L HB7315, HBJ4204, TSR9618 ####BABATUNDE [facility] [address] [place] [address] Urea nitrogen [Mass/Vol] 19 mg/dL Normal 2-32 [facility] Comment on above: Performed By: #### L QN7194, QQT6905, ZWT3004 ####[facility] [address] [place] [address] Comprehensive Metabolic Pane [place] 11-19-2024 Bilirubin [Mass/Vol] 1.8 mg/dL High 0.2 - 1 .0 mg/dL [facility] Osmolality Calc [Osmolality] 275 266 - 309 [facility] Urea nitrogen/Creatinine [Mass ratio] 16 mg/mg 10 - 20 [facility] No Panel Informationon 11-19 Interpretation and review of laboratory results Abnormal [facility] PROCALCITONIN, Son 5 PROCALCITONIN, S 0.14 ng/mL Normal [facility] Comment on above: Result Comment: . <0 .05 ng/mL Healthy individuals. <0.50 ng/mL Systemic infection (sepsis) is not likely. 0.50 - 2.00 ng/mL Systemic infection (sepsis) is possible, but other conditions are known to induce PCT as well. 2.00 - 10.00 ng/mL Systemic infection (sepsis) is likely, unless other causes are known. >=10.00 ng/mL Important systemic inflammatory response, almost exclusively due to severe bacterial sepsis or septic shock. Performed By: #### L UC9576, YUM2344, GUX9593 ####[facility] [address] [place] [address] Procalcitonin, QN, Son 11-19 Procalcitonin [Mass/Vol] 0.14 ng/mL [facility] Comment on above: . <0.05 ng/mL Healthy individuals. <0.50 ng/mL Systemic infection (sepsis) is not likely. 0.50 - 2.00 ng/mL Systemic infection (sepsis) is possible, but other conditions are known to induce PCT as well. 2.00 - 10.00 ng/mL Systemic infection (sepsis) is likely, unless other causes are known. >=10.00 ng/mL Important systemic inflammatory response, almost exclusively due to severe bacterial sepsis or septic shock. XR CHEST PA AND LATERALon XR CHEST PA AND LATERAL Normal [facility] [place]R [place] [address] Radiology PATIENT NAME: Carolina Hightower MR#: [id number] PROCEDURE DATE: 11/19/2024 ROOM#: [id number] ORDERING PHYS: Lambert Veliz PROCEDURE: XR CHEST PA AND LATERAL CLINICAL INFORMATION: dyspnea COMPARISON: 09/01/2024 FINDINGS: The lungs are well expanded. There is no pneumothorax, pleural effusion, or regional airspace consolidation. The cardiomediastinal structures are normal in appearance. Bony thorax is intact. IMPRESSION: No evidence of acute cardiopulmonary abnormality. THIS IS AN ELECTRONICALLY VERIFIED REPORT 11/19/2024 3:10 PM: MD Terry Greene MD gs TD: 11/19/2024 JOB #: [id number] Radiology Page [address] [facility] Terry Thomas MD - 11/19/2024 [place] [address] Radiology PATIENT NAME: Carolina Hightower MR#: [id number] PROCEDURE DATE: 11/19/2024 ROOM#: [id number] ORDERING PHYS: Lambert Veliz PROCEDURE: XR CHEST PA AND LATERAL CLINICAL INFORMATION: dyspnea COMPARISON: 09/01/2024 FINDINGS: The lungs are well expanded. There is no pneumothorax, pleural effusion, or regional airspace consolidation. The cardiomediastinal structures are normal in appearance. Bony thorax is intact. IMPRESSION: No evidence of acute cardiopulmonary abnormality. THIS IS AN ELECTRONICALLY VERIFIED REPORT 11/19/2024 3:10 PM: MD Terry Greene MD gs TD: 11/19/2024 JOB #: [id number] Radiology Page 1 of 1 COPY [facility] Radiology Study observation (narrative) [facility] XR Chest PA and LateralOrder ed By: Terry Thomas on 11-19-2024 [facility] Work Phone: URINE CULTUREon 11-13-2024 Bacteria identified Cx Nom (U) Bacteria identified in Urine by Culture URINE CULTURE: No significant growth. Normal [facility] Comment on above: Performed By: #### L VK3536 ####[place] [address] CBC w/ Differentialon 2024 Basophil Abs. 0.0 10*3/uL Normal 0.0-0.1 [facility] Comment on above: Order Comment: Rodriguez d to and read back by PLT rechecked and read back by Judie Jacobs, at12:57 on 11/08/2024, EDB Performed By: #### L ZM6947, GTP9261, BTC2098, DZQ2549, CVD5135, XAV9163 ####[place] [address] Basophils/100 WBC (Bld) 0.4 % Normal 0.0-1.0 [facility] Comment on above: Order Comment: Rodriguez d to and read back by PLT rechecked and read back by Judie Jacobs, at12:57 on 11/08/2024, EDB Performed By: #### L MN9575, YOS6374, MKQ9028, KBT7239, DTY1238, RSC6036 ####[place] [address] Differential type Auto Normal [facility] Comment on above: Order Comment: Rodriguez d to and read back by PLT rechecked and read back by Judie Jacobs, at12:57 on 11/08/2024, EDB Performed By: #### L IC5642, ONU8532, TJF1056, OFG4132, BKY3835, RIF8404 ####[place] [address] Eosinophils (Bld) [#/Vol] 0.3 10*3/uL Normal 0.0-0.5 [facility] Comment on above: Order Comment: Rodriguez d to and read back by PLT rechecked and read back by Judie Jacobs, at12:57 on 11/08/2024, EDB Performed By: #### L HS4117, HXW2079, IJE9349, BIK6192, VGZ8437, HCY5835 ####[place] [address] Eosinophils/100 WBC (Bld) 5.0 % Normal 0.3-5.0 [facility] Comment on above: Order Comment: Rodriguez d to and read back by PLT rechecked and read back by Judie Jacobs, at12:57 on 11/08/2024, EDB Performed By: #### L SU7000, KSS6539, ZVX1749, YRA6093, YAF8688, ZCX0920 ####[place] [address] Erythrocyte distribution width (RBC) [Ratio] 16.0 % Normal 10.7-18.7 [facility] Comment on above: Order Comment: Rodriguez d to and read back by PLT rechecked and read back by Judie Jacobs, at12:57 on 11/08/2024, EDB Performed By: #### L TE9433, JMI3491, CYZ2768, APB9457, UQE8001, HMR5408 ####[place] [address] Hematocrit (Bld) [Volume fraction] 41.7 % Normal 33.0-51.0 [facility] Comment on above: Order Comment: Rodriguez d to and read back by PLT rechecked and read back by Judie Jacobs, at12:57 on 11/08/2024, EDB Performed By: #### L KI8358, GOD6988, PLF7614, BON5571, YPL6297, BQC2975 ####[place] [address] Hemoglobin (Bld) [Mass/Vol] 14.0 g/dL Normal 12.0-16.0 [facility] Comment on above: Order Comment: Rodriguez d to and read back by PLT rechecked and read back by Judie Jacobs, at12:57 on 11/08/2024, EDB Performed By: #### L JX1188, OCW6288, TOL1060, DMN9371, OVT8193, BEF7815 ####[address] [address] Lymphocytes (Bld) [#/Vol] 1.0 10*3/uL Low 1.1-5.0 [facility] Comment on above: Order Comment: Rodriguez d to and read back by PLT rechecked and read back by Judie Jacobs, at12:57 on 11/08/2024, EDB Performed By: #### L UX5136, GDV4440, UVU9117, LQB2487, WCC3398, ILY0675 ####[place] [address] Lymphocytes/100 WBC (Bld) 20.2 % Low 24.0-44.0 [facility] Comment on above: Order Comment: Rodriguez d to and read back by PLT rechecked and read back by Judie Jacobs, at12:57 on 11/08/2024, EDB Performed By: #### L IR3615, JKR9243, YLG7229, IUF5543, CIY8437, RQW1471 ####[place] [address] MCH (RBC) [Entitic mass] 32.4 pg Normal 26.0-34.0 [facility] Comment on above: Order Comment: Rodriguez d to and read back by PLT rechecked and read back by Judie Jacobs, at12:57 on 11/08/2024, EDB Performed By: #### L KN6205, MEZ5639, WNJ2580, NDO0817, OZQ1241, ASK8487 ####BABATUNDE [address] [address] MCHC (RBC) [Mass/Vol] 33.5 g/dL Normal 32.0-36.0 [facility] Comment on above: Order Comment: Rodriguez d to and read back by PLT rechecked and read back by Judie Jacobs, at12:57 on 11/08/2024, EDB Performed By: #### L WP5750, YQV2054, DDF3538, BMF2553, JGL0375, XUZ6266 ####BABATUNDE [address] [address] MCV (RBC) [Entitic vol] 96.8 fL Normal 80.0-100.0 [facility] Comment on above: Order Comment: Rodriguez d to and read back by PLT rechecked and read back by Judie Jacobs, at12:57 on 11/08/2024, EDB Performed By: #### L YH3196, RLO2116, EGP0825, MXM1746, VXF6171, ACC0797 ####BABATUNDE [address] [address] Monocytes (Bld) [#/Vol] 0.6 10*3/uL Normal 0.0-1.4 [facility] Comment on above: Order Comment: Rodriguez d to and read back by PLT rechecked and read back by Judie Jacobs, at12:57 on 11/08/2024, EDB Performed By: #### L MH7030, SST1598, DJU8934, WNM4798, DMQ2727, TCU0162 ####BABATUNDE [address] [address] Monocytes/100 WBC (Bld) 10.7 % Normal 2.1-13.3 [facility] Comment on above: Order Comment: Rodriguez d to and read back by PLT rechecked and read back by Judie Jacobs, at12:57 on 11/08/2024, EDB Performed By: #### L SF5177, VLW7066, ZBZ9387, NJX8403, RRS9311, POD9699 ####BABATUNDE [address] [address] Neutrophils, Abs. 3.3 10*3/uL Normal 1.5-8.5 [facility] Comment on above: Order Comment: Rodriguez d to and read back by PLT rechecked and read back by Judie Jacobs, at12:57 on 11/08/2024, EDB Performed By: #### L ZB1482, NAT3126, RNQ1786, RBK2826, IWZ0654, GUJ1242 ####BABATUNDE [address] [address] Neutrophils/100 WBC (Bld) 63.7 % Normal 35.0-66.0 [facility] Comment on above: Order Comment: Rodriguez d to and read back by PLT rechecked and read back by Judie Jacobs, at12:57 on 11/08/2024, EDB Performed By: #### L ZM7085, ART1726, CXK6670, NKE1380, RFO4747, QJL9695 ####[address] [address] Platelet Cnt 43 10*3/uL Critically low 150-450 [facility] Comment on above: Order Comment: Rodriguez d to and read back by PLT rechecked and read back by Judie Jacobs, at12:57 on 11/08/2024, EDB Performed By: #### L SZ6476, AYC3055, VCF9791, FSN8084, GHD3347, GLU7103 ####[address] [address] Platelet mean volume (Bld) [Entitic vol] 9.6 fL Normal 6.5-10.0 [facility] Comment on above: Order Comment: Rodriguez d to and read back by PLT rechecked and read back by Judie Jacobs, at12:57 on 11/08/2024, EDB Performed By: #### L QP8202, PAO7952, SPV4154, YCY6780, RHE7730, MBX5176 ####[address] [address] RBC (Bld) [#/Vol] 4.31 10*6/uL Normal 4.00-5.20 [facility] Comment on above: Order Comment: Rodriguez d to and read back by PLT rechecked and read back by Judie Jacobs, at12:57 on 11/08/2024, EDB Performed By: #### L HE6381, JVD1548, SMP1573, TKT7091, ZBH3439, JRQ7381 ####[address] [address] WBC (Bld) [#/Vol] 5.1 10*3/uL Normal 4.5-11.0 [facility] Comment on above: Order Comment: Rodriguez d to and read back by PLT rechecked and read back by Judie Jacobs at12:57 on 11/08/2024, EDB Performed By: #### L UT4585, HPD2089, KLG2782, JGK0419, VQY8481, LQY4626 ####[address] [address] FERRITINon 11-08-2024 Ferritin [Mass/Vol] 75.4 ng/mL Normal 11.0-306.8 [facility] Comment on above: Performed By: #### L LK8413, CEA2492, IBR6615, SHT9495, QMY4869, ZAB7464 ####[place] [address] FOLATESon 11-08-2024 FOLATES > 20.0 Normal >5.21 [facility] Comment on above: Performed By: #### L LC2813, HRB1006, WSU2119, ADN4991, OSP1745, YWL4148 ####[place] [address] IRON AND TOTAL IRON BINDING CAPACITYon 11-08-2024 % SATURATION 63 % High 15-55 [facility] Comment on above: Performed By: #### L LF6632, PLI9646, OFM5809, TSQ9583, IZV1231, PNR7357 ####[place] [address] Iron [Mass/Vol] 198 ug/dL High 40-150 [facility] Comment on above: Performed By: #### L EZ9334, NDJ7351, NLP2849, ADH3994, UAO5608, GVS1041 ####[place] [address] IRON BIND. CAP.,TOT 315 ug/dL Normal 250-400 [facility] Comment on above: Performed By: #### L WK5106, NWK8909, QEQ2057, LHQ4537, OZT4925, YYI3033 ####[place] [address] Transferrin [Mass/Vol] 225.00 mg/dL Normal 192.00-382. 00 [facility] Comment on above: Performed By: #### L LA1299, VFX8875, BDR0845, PLO4191, SXQ8077, LTV3530 ####[place] [address] UIBC 117 ug/dL Low 150-375 [facility] Comment on above: Performed By: #### L PF5060, GNT3593, OXQ7212, IKM4824, PYC9763, FYT7409 ####[place] [address] PT INRon 11-08-2024 INR Coag (PPP) [Relative time] 1.5 {INR} High 0.9-1.1 [facility] Comment on above: Result Comment: CORRIE Luciano OF THERAPY INDICATIONS TARGET INR RANGESTANDARD DOSE TREATMENT OF VENOUS THROMBOSIS 2.0-3.0 TREATMENT OF PULMONARY EMBOLUS PROPHYLAXIS AGAINST VENOUS THROMBOSIS BY SYSTEMIC EMBOLIZATION .HIGH DOSE HIGH RISK PATIENTS WITH 2.5-3.5 MECHANICAL HEART VALVES Performed By: #### L CH8248, LAM1876, QEW9205, AMV6940, HMJ5757, LMR1263 ####[place] [address] PT Coag (PPP) [Time] 17.9 s High 10.1-13.7 [facility] Comment on above: Performed By: #### L KU3242, WYB7770, PSZ0833, KCE3509, AVL0544, TSJ1322 ####[place] [address] VITAMIN B12on 11-08-2024 VITAMIN B12 1,023 pg/mL High 180-914 [facility] Comment on above: Performed By: #### L UO9215, UKF2606, MZB7292, OLB3266, DNW9614, ZEK0546 ####[place] [address] VASCULAR PROCEDUREon 025 VASCULAR PROCEDURE Normal [facility] URINE CULTUREon 10-17-2024 Bacteria identified Cx Nom (U) Bacteria identified in Urine by Culture URINE CULTURE: COLONY COUNT: 10-100K cfu/ml Mixed Skin Dante. Normal [facility] Comment on above: Performed By: #### L VR1797 ####[facility] [place] [address] VASCULAR PROCEDUREon 025 VASCULAR PROCEDURE Normal [facility] CNPNon 10-10-2024 CNPN Telephone (GST[facility]) CAROLINA HIGHTOWER ([id number]) 1975 F Date Time Provider Department 10/10/24 JAMES HENDRIX GSTNOR During your visit today, we recorded the following information about you: Kaylin Rhodes 10/10/2024 11:31 AM Signed Called pt to notify her we received a denial from [facility] regarding her visit here on 10/24, so we need to cancel appt, LM to call me back Allergies As of Date: 10/10/2024 Noted Allergy Reaction ASPIRIN 06/02/2005 Comments: UNCERTAIN =CHILDHOOD BUPROPION 06/11/2019 14 - Other: See Comments CODEINE 06/02/2005 2 - Rash PREDNISONE 06/19/2019 2 - Rash WELLBUTRIN (BUPROPION HCL) 09/29/2012 14 - Other: See Comments Comments: seizures Date Reviewed: 06/04/2024 Reviewed by: Loree Rueda, NASH - Fully Assessed Prescriptions as of 10/10/2024 - ibuprofen (MOTRIN) 600 mg tablet Take 1 tablet by mouth every 6 hours as needed for pain. - gabapentin (NEURONTIN) 100 mg capsule Take 1 capsule by mouth two times a day for 180 days. - spironolactone (ALDACTONE) 50 mg tablet Take 1 tablet by mouth two times a day. - furosemide (LASIX) 40 mg tablet Take 1 tablet by mouth once daily. - fluticasone (FLONASE) 50 mcg/actuation nasal spray Use 2 Sprays in each nostril once daily. Rinse mouth after use. - mupirocin (BACTROBAN) 2 % ointment Apply to affected area three times a day. - hydrOXYzine HCl (ATARAX) 25 mg tablet Take 1 tablet by mouth every 6 hours as needed for itching/rash. - ascorbic acid, vitamin C, (VITAMIN C) 500 mg tablet Take 1 tablet by mouth once daily. - nicotine (NICODERM) 21 mg/24 hr Apply 1 Patch as directed as directed. - ondansetron orally disintegrating (ZOFRAN ODT) 4 mg disintegrating tablet Take 1 tablet by mouth every 6 hours as needed for nausea/vomiting. - albuterol HFA (PROAIR HFA) 90 mcg/actuation inhaler Inhale 2 Puffs as instructed every 4 hours as needed. - pantoprazole DR (PROTONIX) 40 mg tablet Take 1 tablet by mouth twice daily before meals. Take on empty stomach, 1/2 hr before meal. 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 0.0 10*3/uL Normal 0.0-0.1 [facility] Comment on above: Order Comment: Rodriguez d to and read back by jacky dumont (ed), at 08:37 on 10/04/2024, MHE Performed By: #### L LA6860, KOL8320 ####[place] [address] Basophils/100 WBC (Bld) 0.6 % Normal 0.0-1.0 [facility] Comment on above: Order Comment: Rodriguez d to and read back by jacky dumont (ed), at 08:37 on 10/04/2024, MHE Performed By: #### L QA5289, FCF1436 ####[facility] [address] [place] [address] Differential type Auto Normal [facility] Comment on above: Order Comment: Rodriguez d to and read back by jacky dumont (ed), at 08:37 on 10/04/2024, MHE Performed By: #### L PS7704, VSE8871 ####[place] [address] Eosinophils (Bld) [#/Vol] 0.2 10*3/uL Normal 0.0-0.5 [facility] Comment on above: Order Comment: Rodriguez d to and read back by jacky dumont (ed), at 08:37 on 10/04/2024, MHE Performed By: #### L YQ1766, NIP2514 ####[place] [address] Eosinophils/100 WBC (Bld) 4.9 % Normal 0.3-5.0 [facility] Comment on above: Order Comment: Rodriguez d to and read back by jakcy dumont (ed), at 08:37 on 10/04/2024, MHE Performed By: #### L GF4197, OLU5534 ####[place] [address] Erythrocyte distribution width (RBC) [Ratio] 16.6 % Normal 10.7-18.7 [facility] Comment on above: Order Comment: Rodriguez d to and read back by jacky dumont (ed), at 08:37 on 10/04/2024, MHE Performed By: #### L YQ1003, JTN2768 ####[place] [address] Hematocrit (Bld) [Volume fraction] 38.4 % Normal 33.0-51.0 [facility] Comment on above: Order Comment: Rodriguez d to and read back by jacky dumont (ed), at 08:37 on 10/04/2024, MHE Performed By: #### L IG8045, NVT9806 ####[place] [address] Hemoglobin (Bld) [Mass/Vol] 12.5 g/dL Normal 12.0-16.0 [facility] Comment on above: Order Comment: Rodriguez d to and read back by jacky dumont (ed), at 08:37 on 10/04/2024, MHE Performed By: #### L FX8404, FKP3211 ####[place] [address] Lymphocytes (Bld) [#/Vol] 0.8 10*3/uL Low 1.1-5.0 [facility] Comment on above: Order Comment: Rodriguez d to and read back by jacky dumont (ed), at 08:37 on 10/04/2024, MHE Performed By: #### L IB0284, SLP6088 ####[place] [address] Lymphocytes/100 WBC (Bld) 17.2 % Low 24.0-44.0 [facility] Comment on above: Order Comment: Rodriguez d to and read back by jacky dumont (ed), at 08:37 on 10/04/2024, MHE Performed By: #### L GB6598, ZYU9148 ####[place] [address] MCH (RBC) [Entitic mass] 32.0 pg Normal 26.0-34.0 [facility] Comment on above: Order Comment: Rodriguez d to and read back by jacky dumont (ed), at 08:37 on 10/04/2024, MHE Performed By: #### L LW9322, AJF7589 ####[place] [address] MCHC (RBC) [Mass/Vol] 32.6 g/dL Normal 32.0-36.0 [facility] Comment on above: Order Comment: Rodriguez d to and read back by jacky dumont (ed), at 08:37 on 10/04/2024, MHE Performed By: #### L GD9381, XRK6489 ####[place] [address] MCV (RBC) [Entitic vol] 98.3 fL Normal 80.0-100.0 [facility] Comment on above: Order Comment: Rodriguez d to and read back by jacky dumont (ed), at 08:37 on 10/04/2024, MHE Performed By: #### L IW6039, BYF3420 ####[place] [address] Monocytes (Bld) [#/Vol] 0.3 10*3/uL Normal 0.0-1.4 [facility] Comment on above: Order Comment: Rodriguez d to and read back by jacky dumont (ed), at 08:37 on 10/04/2024, MHE Performed By: #### L MS5851, MBK3618 ####[place] [address] Monocytes/100 WBC (Bld) 6.9 % Normal 2.1-13.3 [facility] Comment on above: Order Comment: Rodriguez d to and read back by jacky dumont (ed), at 08:37 on 10/04/2024, MHE Performed By: #### L CX5288, RXE2610 ####[place] [address] Neutrophils, Abs. 3.4 10*3/uL Normal 1.5-8.5 [facility] Comment on above: Order Comment: Rodriguez d to and read back by jacky dumont (ed), at 08:37 on 10/04/2024, MHE Performed By: #### L AH2045, AOC4996 ####[place] [address] Neutrophils/100 WBC (Bld) 70.4 % High 35.0-66.0 [facility] Comment on above: Order Comment: Rodriguez d to and read back by jacky dumont (ed), at 08:37 on 10/04/2024, MHE Performed By: #### L CV6627, HZM7311 ####[place] [address] Platelet Cnt 43 10*3/uL Critically low 150-450 [facility] Comment on above: Order Comment: Rodriguez d to and read back by jacky dumont (ed), at 08:37 on 10/04/2024, MHE Performed By: #### L IK7722, NIZ3673 ####[place] [address] Platelet mean volume (Bld) [Entitic vol] 9.9 fL Normal 6.5-10.0 [facility] Comment on above: Order Comment: Rodriguez d to and read back by jacky dumont (ed), at 08:37 on 10/04/2024, MHE Performed By: #### L KC3300, NPT9322 ####[place] [address] RBC (Bld) [#/Vol] 3.91 10*6/uL Low 4.00-5.20 [facility] Comment on above: Order Comment: Rodriguez d to and read back by jacky dumont (ed), at 08:37 on 10/04/2024, MHE Performed By: #### L SM4132, KFL3246 ####[facility] [address] [place] [address] WBC (Bld) [#/Vol] 4.8 10*3/uL Normal 4.5-11.0 [facility] Comment on above: Order Comment: Rodriguez d to and read back by jacky dumont (ed), at 08:37 on 10/04/2024, MHE Performed By: #### L DZ0914, YAF2599 ####[facility] [address] [place] [address] CBC w/Differentialon 025 Basophils (Bld) [#/Vol] 0.0 10*3/uL 0.0 - 0.1 10*3/uL [facility] Basophils/100 WBC (Bld) 0.6 % 0.0 - 1.0 % [facility] Differential cell count method Nom (Bld) Auto [facility] Eosinophils (Bld) [#/Vol] 0.2 10*3/uL 0.0 - 0.5 10*3/uL [facility] Eosinophils/100 WBC (Bld) 4.9 % 0.3 - 5.0 % [facility] Erythrocyte distribution width (RBC) [Ratio] 16.6 % 10.7 - 18.7 % [facility] Hematocrit (Bld) [Volume fraction] 38.4 % 33.0 - 51.0 % [facility] Hemoglobin (Bld) [Mass/Vol] 12.5 g/dL 12.0 - 16.0 g/dL [facility] Interpretation and review of laboratory results Abnormal [facility] Lymphocytes (Bld) [#/Vol] 0.8 10*3/uL Low 1.1 - 5.0 10*3/uL [facility] Lymphocytes/100 WBC (Bld) 17.2 % Low 24.0 - 44.0 % [facility] MCH (RBC) [Entitic mass] 32.0 pg 26.0 - 34.0 pg [facility] MCHC (RBC) [Mass/Vol] 32.6 g/dL 32.0 - 36.0 g/dL [facility] MCV (RBC) [Entitic vol] 98.3 fL 80.0 - 100.0 fL [facility] Monocytes (Bld) [#/Vol] 0.3 10*3/uL 0.0 - 1.4 10*3/uL [facility] Monocytes/100 WBC (Bld) 6.9 % 2.1 - 13.3 % [facility] Neutrophils (Bld) [#/Vol] 3.4 10*3/uL 1.5 - 8.5 10*3/uL [facility] Neutrophils/100 WBC (Bld) 70.4 % High 35.0 - 66.0 % [facility] Platelet mean volume (Bld) [Entitic vol] 9.9 fL 6.5 - 10.0 fL [facility] Platelets (Bld) [#/Vol] 43 10*3/uL Critically low 150 - 450 10*3/uL [facility] RBC (Bld) [#/Vol] 3.91 10*6/uL Low 4.00 - 5.2 0 10*6/uL [facility] WBC (Bld) [#/Vol] 4.8 10*3/uL 4.5 - 11.0 10*3/uL [facility] Called to and read jose ack by jacky dumont (ed), at 08:37 on 10/04/2024, E [facility] COMPREHENSIVE METABOLIC PANE [place] 10-04-2024 Albumin [Mass/Vol] 2.8 g/dL Low 3.2-5.0 [facility] Comment on above: Performed By: #### L PC8449, UGV8730 ####BABATUNDE [address] [address] Albumin/Globulin [Mass ratio] 0.8 {ratio} Normal [facility] Comment on above: Performed By: #### L JR8317, QUB4620 ####[place] [address] ALP [Catalytic activity/Vol] 133 U/L High 42-121 [facility] Comment on above: Performed By: #### L EX9193, QZW3595 ####[place] [address] ALT [Catalytic activity/Vol] 66 U/L High 10-60 [facility] Comment on above: Performed By: #### L FL5536, NNZ0189 ####[place] [address] Anion gap [Moles/Vol] 4 mmol/L Normal [facility] Comment on above: Performed By: #### L CZ4693, MNX1242 ####[place] [address] AST [Catalytic activity/Vol] 105 U/L High 10-42 [facility] Comment on above: Performed By: #### L ZU0563, ZIM4064 ####[place] [address] B/C 8 Low 10-20 [facility] Comment on above: Performed By: #### L SS8410, DTR7849 ####[place] [address] Bilirubin.direct [Mass/Vol] 1.8 mg/dL High 0.2-1.0 [facility] Comment on above: Performed By: #### L HG3858, GTT8581 ####[place] [address] Calcium [Mass/Vol] 8.7 mg/dL Normal 8.5-10.5 [facility] Comment on above: Performed By: #### L FL0101, SMI5092 ####[place] [address] Chloride [Moles/Vol] 110 mmol/L Normal 101-111 [facility] Comment on above: Performed By: #### L WH7021, SOE0953 ####[place] [address] CO2 [Moles/Vol] 19 mmol/L Low 21-31 [facility] Comment on above: Performed By: #### L DQ2116, UWM8205 ####BABATUNDE [address] [address] Creatinine [Mass/Vol] 1.1 mg/dL High 0.4-1.0 [facility] Comment on above: Performed By: #### L VJ1041, FFM7447 ####BABATUNDE [address] [address] GFR/1.73 sq M.predicted MDRD (S/P/Bld) [Vol rate/Area] 52 mL/min/{1.73_m2} Normal [facility] Comment on above: *The estimated Glome rular Filtration Rate(EGFR) may not be accurate for children under the age of 18 yrs. To estimate the GFR for -Americans multiply the result provided by 1.21. Stage 1 90 mL/min or greater Stage 2 60-89 mL/min Stage 3 30-59 mL/min Stage 4 15-29 mL/min Stage 5 14 mL/min or less Result Comment: *The estimated Glomerular Filtration Rate(EGFR) may not be accurate for children under the age of 18 yrs. To estimate the GFR for -Americans multiply the result provided by 1.21.Stage 1 90 mL/min or greaterStage 2 60-89 mL/minStage 3 30-59 mL/minStage 4 15-29 mL/minStage 5 14 mL/min or less Performed By: #### L XS8367, EHO1843 ####BABATUNDE [address] [address] Glucose [Mass/Vol] 190 mg/dL High 70-110 [facility] Comment on above: Performed By: #### L JX1288, TZJ1598 ####BABATUNDE [address] [address] Osmolality [Osmolality] 270 mosm/kg Normal 266-309 [facility] Comment on above: Performed By: #### L CW6888, QCB9601 ####BABATUNDE [address] [address] Potassium [Moles/Vol] 4.0 mmol/L Normal 3.6-5.0 [facility] Comment on above: Performed By: #### L ZU1894, VAX8666 ####BABATUNDE [address] [place] [address] Protein [Mass/Vol] 6.5 g/dL Normal 6.1-7.8 [facility] Comment on above: Performed By: #### L XZ9403, KIM4260 ####BABATUNDE [facility] [place] [address] Sodium [Moles/Vol] 133 mmol/L Low 135-145 [facility] Comment on above: Performed By: #### L HJ0432, HUL4182 ####[place] [address] Urea nitrogen [Mass/Vol] 9 mg/dL Normal 2-32 [facility] Comment on above: Performed By: #### L TR7194, ICQ0486 ####[place] [address] Comprehensive Metabolic Pane [place] 10-04-2024 Bilirubin [Mass/Vol] 1.8 mg/dL High 0.2 - 1 .0 mg/dL [facility] Interpretation and review of laboratory results Abnormal [facility] Osmolality Calc [Osmolality] 270 266 - 309 [facility] Urea nitrogen/Creatinine [Mass ratio] 8 mg/mg Low 10 - 20 [facility] LIPASEon 10-04-2024 Lipase [Catalytic activity/Vol] 53 U/L Normal 11-82 [facility] Comment on above: Performed By: #### L VE1322 ####[place] [address] Lipaseon 10-04-2024 Lipase [Catalytic activity/Vol] 53 U/L 11 - 82 U/L [facility] XR Abdomen Supine and Uprigh ton 10-04-2024 [facility] [address] [place] [address] Radiology PATIENT NAME: Carolina Hightower MR#: [id number] PROCEDURE DATE: 10/04/2024 ROOM#: [id number] ORDERING PHYS: Pete Ponce MD PROCEDURE: XR KUB FLAT AND UPRIGHT CLINICAL INFORMATION: ABDOMINAL PAIN, history of cirrhosis COMPARISON: None The bowel gas pattern is nonobstructive. There is no evidence of obvious organomegaly, or suspicious calcifications. The upright view shows no evidence of free intraperitoneal air. Tubal ligation clips are noted in the pelvis. Included osseous structures are intact. IMPRESSION:Nonspecific but nonobstructive bowel gas pattern. THIS IS AN ELECTRONICALLY VERIFIED REPORT 10/04/2024 8:44 AM: MD Saud Zimmer MD jp TD: 10/04/2024 JOB #: [id number] Radiology Page 1 of 1 COPY [facility] Suad Pierre MD - 10/04/2024 [place] [address] Radiology PATIENT NAME: Carolina Hightower MR#: [id number] PROCEDURE DATE: 10/04/2024 ROOM#: LTX ORDERING PHYS: Pete Ponce MD PROCEDURE: XR KUB FLAT AND UPRIGHT CLINICAL INFORMATION: ABDOMINAL PAIN, history of cirrhosis COMPARISON: None The bowel gas pattern is nonobstructive. There is no evidence of obvious organomegaly, or suspicious calcifications. The upright view shows no evidence of free intraperitoneal air. Tubal ligation clips are noted in the pelvis. Included osseous structures are intact. IMPRESSION:Nonspecific but nonobstructive bowel gas pattern. THIS IS AN ELECTRONICALLY VERIFIED REPORT 10/04/2024 8:44 AM: MD Saud Zimmer MD jp TD: 10/04/2024 JOB #: [id number] Radiology Page 1 of 1 COPY [facility] Radiology Study observation (narrative) [facility] XR Abdomen Supine and Uprigh tOrdered By: Saud Pierre on 10-04-2024 [facility] Work Phone: XR KUB FLAT AND UPRIGHTon XR KUB FLAT AND UPRIGHT Normal [facility] Vascular Procedureon 025 [facility] Radiology Study observation (narrative) [facility] 12 Lead EKG - ED (Initial EK G)on 09-28-2024 [facility] ED Test Date: 2024-09-28 Pat Name: CAROLINA HIGHTOWER Department: EMERGENCY DEPARTMENT Room: Gender: Female Systems Developer: Ambreen powell : 1975 Requested By: PETE PONCE Order Number: [id number] [place] MD: Anjelica Bonilla MD Measurements Intervals [place] Rate: 61 P: 59 [place]: 182 QRS: 24 QRSD: 90 T: 38 QT: 442 QTc: 447 Interpretive Statements SINUS RHYTHM No previous ECG available for comparison Electronically Signed On 09-28-2024 11:20:04 EST by Anjelica Sterling MD, MD - 09/28/2024 [facility] ED Test Date: 2024-09-28 Pat Name: CAROLINA HIGHTOWER Department: EMERGENCY DEPARTMENT Room: Gender: Female Systems Developer: Ambreen powell : 1975 Requested By: PETE PONCE Order Number: [id number] [place] MD: Anjelica Bonilla MD Measurements Intervals [place] Rate: 61 P: 59 [place]: 182 QRS: 24 QRSD: 90 T: 38 QT: 442 QTc: 447 Interpretive Statements SINUS RHYTHM No previous ECG available for comparison Electronically Signed On 09-28-2024 11:20:04 EST by Anjelica Bonilla MD [facility] 12 Lead EKG - ED (Initial EK G)Ordered By: Anjelica Bonilla on 09-28-2024 [facility] Work Phone: AMMONIAon 09-28-2024 Ammonia (P) [Moles/Vol] 63 umol/L High 11-50 [facility] Comment on above: Order Comment: Colle ction has been rescheduled by RM at 09/28/2024 11:10 Reason: noanswer Performed By: #### L [id number], [id number], [id number], [id number] ####[facility] [id number] [place] [address] Ammoniaon 09-28-2024 Interpretation and review of laboratory results [facility] CBC w/ Differentialon 2024 Basophil Abs. 0.0 10*3/uL Normal 0.0-0.1 [facility] Comment on above: Order Comment: Rodriguez d to and read back by JAKOB DUMONT (ed), at 11:48 on 09/28/2024, MHECollection has been rescheduled by [facility] at 09/28/2024 11:10 Reason: noanswer Performed By: #### L CH5146, EBK0740, UGS6179, KHM0874 ####[facility] [place] [address] Basophils/100 WBC (Bld) 0.5 % Normal 0.0-1.0 [facility] Comment on above: Order Comment: Rodriguez d to and read back by JAKOB DUMONT (ed), at 11:48 on 09/28/2024, MHECollection has been rescheduled by [facility] at 09/28/2024 11:10 Reason: noanswer Performed By: #### L SL2597, CBB1292, XWW2911, EAR2726 ####[place] [address] Differential type Auto Normal [facility] Comment on above: Order Comment: Rodriguez d to and read back by JAKOB DUMONT (ed), at 11:48 on 09/28/2024, MHECollection has been rescheduled by [facility] at 09/28/2024 11:10 Reason: noanswer Performed By: #### L WI2626, MSR3234, BFP5595, YHE8448 ####[facility] [address] [place] [address] Eosinophils (Bld) [#/Vol] 0.2 10*3/uL Normal 0.0-0.5 [facility] Comment on above: Order Comment: Rodriguez d to and read back by JAKOB DUMONT (ed), at 11:48 on 09/28/2024, MHECollection has been rescheduled by [facility] at 09/28/2024 11:10 Reason: noanswer Performed By: #### L CQ0850, QFO5576, WAU9944, YVM3313 ####[address] [address] Eosinophils/100 WBC (Bld) 3.7 % Normal 0.3-5.0 [facility] Comment on above: Order Comment: Rodriguez d to and read back by JAKOB DUMONT (ed), at 11:48 on 09/28/2024, [facility]Collection has been rescheduled by RM at 09/28/2024 11:10 Reason: noanswer Performed By: #### L UY3967, NSQ9609, NND4001, HHN9142 ####[place] [address] Erythrocyte distribution width (RBC) [Ratio] 16.5 % Normal 10.7-18.7 [facility] Comment on above: Order Comment: Rodriguez d to and read back by JAKOB DUMONT (ed), at 11:48 on 09/28/2024, [facility]Collection has been rescheduled by [facility] at 09/28/2024 11:10 Reason: noanswer Performed By: #### L FO9552, AXC0562, BWU7328, OFU3255 ####[place] [address] Hematocrit (Bld) [Volume fraction] 38.1 % Normal 33.0-51.0 [facility] Comment on above: Order Comment: Rodriguez d to and read back by JAKOB DUMONT (ed), at 11:48 on 09/28/2024, [facility]HECollection has been rescheduled by [facility] at 09/28/2024 11:10 Reason: noanswer Performed By: #### L DP5723, IHW4113, EFV6203, ZOR9952 ####[place] [address] Hemoglobin (Bld) [Mass/Vol] 12.7 g/dL Normal 12.0-16.0 [facility] Comment on above: Order Comment: Rodriguez d to and read back by JAKOB DUMONT (ed), at 11:48 on 09/28/2024, MHECollection has been rescheduled by RMM at 09/28/2024 11:10 Reason: noanswer Performed By: #### L NE2567, PTK0872, BSI5365, AFH0089 ####BABATUNDE [address] [address] Lymphocytes (Bld) [#/Vol] 0.7 10*3/uL Low 1.1-5.0 [facility] Comment on above: Order Comment: Rodriguez d to and read back by JAKOB DUMONT (ed), at 11:48 on 09/28/2024, [facility]Collection has been rescheduled by [facility] at 09/28/2024 11:10 Reason: noanswer Performed By: #### L MA1802, YZP5819, CFD2390, CQQ3064 ####BABATUNDE [address] [address] Lymphocytes/100 WBC (Bld) 13.8 % Low 24.0-44.0 [facility] Comment on above: Order Comment: Rodriguez d to and read back by JAKOB DUMONT (ed), at 11:48 on 09/28/2024, [facility]Collection has been rescheduled by [facility] at 09/28/2024 11:10 Reason: noanswer Performed By: #### L LU6409, PNW7686, XZO6889, KRE0196 ####[place] [address] MCH (RBC) [Entitic mass] 32.5 pg Normal 26.0-34.0 [facility] Comment on above: Order Comment: Rodriguez d to and read back by JAKOB DUMONT (ed), at 11:48 on 09/28/2024, [facility]HECollection has been rescheduled by RM at 09/28/2024 11:10 Reason: noanswer Performed By: #### L ON1890, GNJ2991, EBJ7708, SMJ8254 ####BABSC [address] [address] MCHC (RBC) [Mass/Vol] 33.4 g/dL Normal 32.0-36.0 [facility] Comment on above: Order Comment: Rodriguez d to and read back by JAKOB DUMONT (ed), at 11:48 on 09/28/2024, [facility]Collection has been rescheduled by [facility] at 09/28/2024 11:10 Reason: noanswer Performed By: #### L MZ4673, ACV7981, FHZ6709, QSQ9134 ####[address] [address] MCV (RBC) [Entitic vol] 97.5 fL Normal 80.0-100.0 [facility] Comment on above: Order Comment: Rodriguez d to and read back by JAKOB DUMONT (ed), at 11:48 on 09/28/2024, [facility]Collection has been rescheduled by M at 09/28/2024 11:10 Reason: noanswer Performed By: #### L AH2091, NVU3288, ZAG7256, EAB7628 ####[place] [address] Monocytes (Bld) [#/Vol] 0.4 10*3/uL Normal 0.0-1.4 [facility] Comment on above: Order Comment: Rodriguez d to and read back by JAKOB DUMONT (ed), at 11:48 on 09/28/2024, [facility]Collection has been rescheduled by [facility] at 09/28/2024 11:10 Reason: noanswer Performed By: #### L AO6748, EEQ5109, ATR8644, RHQ1527 ####[address] [address] Monocytes/100 WBC (Bld) 8.5 % Normal 2.1-13.3 [facility] Comment on above: Order Comment: Rodriguez d to and read back by JAKOB DUMONT (ed), at 11:48 on 09/28/2024, [facility]Collection has been rescheduled by [facility] at 09/28/2024 11:10 Reason: noanswer Performed By: #### L WJ8740, KQD6762, JIQ4058, HTM4447 ####[facility] [address] [place] [address] Neutrophils, Abs. 3.8 10*3/uL Normal 1.5-8.5 [facility] Comment on above: Order Comment: Rodriguez d to and read back by JAKOB DUMONT (ed), at 11:48 on 09/28/2024, MHECollection has been rescheduled by RMM at 09/28/2024 11:10 Reason: noanswer Performed By: #### L JJ5969, FCC8137, SOJ8215, ODB0465 ####[facility] [place] [address] Neutrophils/100 WBC (Bld) 73.6 % High 35.0-66.0 [facility] Comment on above: Order Comment: Rodriguez d to and read back by JAKOB DUMONT (ed), at 11:48 on 09/28/2024, MHECollection has been rescheduled by RMM at 09/28/2024 11:10 Reason: noanswer Performed By: #### L GI4492, SPO2811, UUX3435, WCU1851 ####[id number] [place] [address] Platelet Cnt 42 10*3/uL Critically low 150-450 [facility] Comment on above: Order Comment: Rodriguez d to and read back by JAKOB DUMONT (ed), at 11:48 on 09/28/2024, [facility]Collection has been rescheduled by [facility]MM at 09/28/2024 11:10 Reason: noanswer Performed By: #### L UF9291, WUT7923, MYU3056, SUF0895 ####[facility] [place] [address] Platelet mean volume (Bld) [Entitic vol] 9.2 fL Normal 6.5-10.0 [facility] Comment on above: Order Comment: Rodriguez d to and read back by JAKOB DUMONT (ed), at 11:48 on 09/28/2024, [facility]Collection has been rescheduled by [facility]MM at 09/28/2024 11:10 Reason: noanswer Performed By: #### L HE3741, TBZ9727, BNH1995, CXA3512 ####[place] [address] RBC (Bld) [#/Vol] 3.91 10*6/uL Low 4.00-5.20 [facility] Comment on above: Order Comment: Rodriguez d to and read back by JAKOB DUMONT (ed), at 11:48 on 09/28/2024, [facility]Collection has been rescheduled by RM at 09/28/2024 11:10 Reason: noanswer Performed By: #### L VC2902, LKD2680, ZHN5504, GNR3378 ####[place] [address] WBC (Bld) [#/Vol] 5.1 10*3/uL Normal 4.5-11.0 [facility] Comment on above: Order Comment: Rodriguez d to and read back by JAKOB DUMONT (ed), at 11:48 on 09/28/2024, [facility]HECollection has been rescheduled by [facility] at 09/28/2024 11:10 Reason: noanswer Performed By: #### L YE1986, XCD9373, OLU4242, RVL7592 ####[place] [address] CBC w/Differentialon 025 Basophils (Bld) [#/Vol] 0.0 10*3/uL 0.0 - 0.1 10*3/uL [facility] Basophils/100 WBC (Bld) 0.5 % 0.0 - 1.0 % [facility] Differential cell count method Nom (Bld) Auto [facility] Eosinophils (Bld) [#/Vol] 0.2 10*3/uL 0.0 - 0.5 10*3/uL [facility] Eosinophils/100 WBC (Bld) 3.7 % 0.3 - 5.0 % [facility] Erythrocyte distribution width (RBC) [Ratio] 16.5 % 10.7 - 18.7 % [facility] Hematocrit (Bld) [Volume fraction] 38.1 % 33.0 - 51.0 % [facility] Hemoglobin (Bld) [Mass/Vol] 12.7 g/dL 12.0 - 16.0 g/dL [facility] Interpretation and review of laboratory results Abnormal [facility] Lymphocytes (Bld) [#/Vol] 0.7 10*3/uL Low 1.1 - 5.0 10*3/uL [facility] Lymphocytes/100 WBC (Bld) 13.8 % Low 24.0 - 44.0 % [facility] MCH (RBC) [Entitic mass] 32.5 pg 26.0 - 34.0 pg [facility] MCHC (RBC) [Mass/Vol] 33.4 g/dL 32.0 - 36.0 g/dL [facility] MCV (RBC) [Entitic vol] 97.5 fL 80.0 - 100.0 fL [facility] Monocytes (Bld) [#/Vol] 0.4 10*3/uL 0.0 - 1.4 10*3/uL [facility] Monocytes/100 WBC (Bld) 8.5 % 2.1 - 13.3 % [facility] Neutrophils (Bld) [#/Vol] 3.8 10*3/uL 1.5 - 8.5 10*3/uL [facility] Neutrophils/100 WBC (Bld) 73.6 % High 35.0 - 66.0 % [facility] Platelet mean volume (Bld) [Entitic vol] 9.2 fL 6.5 - 10.0 fL [facility] Platelets (Bld) [#/Vol] 42 10*3/uL Critically low 150 - 450 10*3/uL [facility] RBC (Bld) [#/Vol] 3.91 10*6/uL Low 4.00 - 5.2 0 10*6/uL [facility] WBC (Bld) [#/Vol] 5.1 10*3/uL 4.5 - 11.0 10*3/uL [facility] Called to and read b ack by PLTJAKOB (ed), at 11:48 on 09/28/2024, MHE Collection has been rescheduled by [facility]MM at 09/28/2024 11:10 Reason: no answer [facility] COMPREHENSIVE METABOLIC PANE [place] 09-28-2024 Albumin [Mass/Vol] 3.1 g/dL Low 3.2-5.0 [facility] Comment on above: Order Comment: Yahaira bradley has been rescheduled by RMM at 09/28/2024 11:10 Reason: noanswer Performed By: #### L PN5896, LXH1392, GJZ2323, XEX0641 ####[place] [address] Albumin/Globulin [Mass ratio] 0.9 {ratio} Normal [facility] Comment on above: Order Comment: Yahaira bradley has been rescheduled by RMM at 09/28/2024 11:10 Reason: noanswer Performed By: #### L QW3747, IIS9000, ULH5140, YHO6433 ####[place] [address] ALP [Catalytic activity/Vol] 141 U/L High 42-121 [facility] Comment on above: Order Comment: Yahaira bradley has been rescheduled by RMM at 09/28/2024 11:10 Reason: noanswer Performed By: #### L LY0910, SHJ8863, XAL7009, BUT8675 ####[place] [address] ALT [Catalytic activity/Vol] 75 U/L High 10-60 [facility] Comment on above: Order Comment: Yahaira bradley has been rescheduled by RM at 09/28/2024 11:10 Reason: noanswer Performed By: #### L CF9513, JEE9758, BNC4046, IYS7794 ####[facility] [address] [place] [address] Anion gap [Moles/Vol] 6 mmol/L Normal [facility] Comment on above: Order Comment: Yahaira bradley has been rescheduled by RMM at 09/28/2024 11:10 Reason: noanswer Performed By: #### L DI6852, RRR7785, KEK4300, SDC3479 ####[place] [address] AST [Catalytic activity/Vol] 111 U/L High 10-42 [facility] Comment on above: Order Comment: Yahaira bradley has been rescheduled by RMM at 09/28/2024 11:10 Reason: noanswer Performed By: #### L YI3710, TWR7036, ODA0754, GRO1760 ####[place] [address] B/C 9 Low 10-20 [facility] Comment on above: Order Comment: Yahaira bradley has been rescheduled by RMM at 09/28/2024 11:10 Reason: noanswer Performed By: #### L KS1066, QZT7252, UXL1873, LJW8081 ####[place] [address] Bilirubin.direct [Mass/Vol] 2.1 mg/dL High 0.2-1.0 [facility] Comment on above: Order Comment: Yahaira bradley has been rescheduled by RMM at 09/28/2024 11:10 Reason: noanswer Performed By: #### L BR9051, VMK7607, UTK5894, RIO4811 ####[place] [address] Calcium [Mass/Vol] 8.8 mg/dL Normal 8.5-10.5 [facility] Comment on above: Order Comment: Yahaira bradley has been rescheduled by RMM at 09/28/2024 11:10 Reason: noanswer Performed By: #### L TG3663, WEO6180, QII2994, UPS5265 ####[place] [address] Chloride [Moles/Vol] 104 mmol/L Normal 101-111 [facility] Comment on above: Order Comment: Yahaira bradley has been rescheduled by RMM at 09/28/2024 11:10 Reason: noanswer Performed By: #### L RH3045, DAT4334, PVT5926, EKN5835 ####[facility] [address] [place] [address] CO2 [Moles/Vol] 24 mmol/L Normal 21-31 [facility] Comment on above: Order Comment: Yahaira bradley has been rescheduled by [facility] at 09/28/2024 11:10 Reason: noanswer Performed By: #### L BT6285, XET7338, LEG9824, OTA2751 ####BABATUNDE [facility] [address] [place] [address] Creatinine [Mass/Vol] 1.0 mg/dL Normal 0.4-1.0 [facility] Comment on above: Order Comment: Yahaira bradley has been rescheduled by [facility] at 09/28/2024 11:10 Reason: noanswer Performed By: #### L JE0441, PUK5382, RUD5621, JSX7387 ####[place] [address] GFR/1.73 sq M.predicted MDRD (S/P/Bld) [Vol rate/Area] 58 mL/min/{1.73_m2} Normal [facility] Comment on above: Order Comment: Yahaira bradley has been rescheduled by [facility] at 09/28/2024 11:10 Reason: noanswer Result Comment: *The estimated Glomerular Filtration Rate(EGFR) may not be accurate for children under the age of 18 yrs. To estimate the GFR for -Americans multiply the result provided by 1.21.Stage 1 90 mL/min or greaterStage 2 60-89 mL/minStage 3 30-59 mL/minStage 4 15-29 mL/minStage 5 14 mL/min or less Performed By: #### L KW2618, JHM1251, OMR4574, GFF6381 ####BABATUNDE [facility] [address] [place] [address] Glucose [Mass/Vol] 155 mg/dL High 70-110 [facility] Comment on above: Order Comment: Yahaira bradley has been rescheduled by [facility] at 09/28/2024 11:10 Reason: noanswer Performed By: #### L VF9036, MFY8067, TIJ1797, CGQ6961 ####BABATUNDE [address] [address] Osmolality [Osmolality] 270 mosm/kg Normal 266-309 [facility] Comment on above: Order Comment: Yahaira bradley has been rescheduled by M at 09/28/2024 11:10 Reason: noanswer Performed By: #### L TW1072, DUJ0097, QZI2092, HUZ6450 ####[place] [address] Potassium [Moles/Vol] 3.6 mmol/L Normal 3.6-5.0 [facility] Comment on above: Order Comment: Yahaira bradley has been rescheduled by [facility] at 09/28/2024 11:10 Reason: noanswer Performed By: #### L FW6001, OLE5202, EGP1115, HNV2368 ####[place] [address] Protein [Mass/Vol] 6.6 g/dL Normal 6.1-7.8 [facility] Comment on above: Order Comment: Yahaira bradley has been rescheduled by [facility] at 09/28/2024 11:10 Reason: noanswer Performed By: #### L QP7579, UAJ5419, ZEH7148, HUW7199 ####BABATUNDE [address] [address] Sodium [Moles/Vol] 134 mmol/L Low 135-145 [facility] Comment on above: Order Comment: Yahaira bradley has been rescheduled by [facility] at 09/28/2024 11:10 Reason: noanswer Performed By: #### L UI7157, QRA5334, VCK2981, BRY2198 ####BABATUNDE [address] [address] Urea nitrogen [Mass/Vol] 9 mg/dL Normal 2-32 [facility] Comment on above: Order Comment: Yahaira bradley has been rescheduled by [facility] at 09/28/2024 11:10 Reason: noanswer Performed By: #### L NR8208, PZB5117, PHZ9352, QQM4988 ####[facility] [address] [place] [address] Comprehensive Metabolic Pane merritt 09-28-2024 Albumin [Mass/Vol] 3.1 g/dL Low 3.2 - 5.0 g/dL [facility] Albumin/Globulin [Mass ratio] 0.9 {ratio} [facility] ALP [Catalytic activity/Vol] 141 U/L High 42 - 121 [iU]/L [facility] ALT [Catalytic activity/Vol] 75 U/L High 10 - 60 [iU]/L [facility] Anion gap [Moles/Vol] 6 mmol/L [facility] AST [Catalytic activity/Vol] 111 U/L High 10 - 42 [iU]/L [facility] Bilirubin [Mass/Vol] 2.1 mg/dL High 0.2 - 1 .0 mg/dL [facility] Calcium [Mass/Vol] 8.8 mg/dL 8.5 - 10. 5 mg/dL [facility] Chloride [Moles/Vol] 104 mmol/L 101 - 1 11 mmol/L [facility] CO2 [Moles/Vol] 24 mmol/L 21 - 31 mmol/L [facility] Creatinine [Mass/Vol] 1.0 mg/dL 0.4 - 1.0 mg/dL [facility] GFR/1.73 sq M.predicted MDRD (S/P/Bld) [Vol rate/Area] 58 mL/min/{1.73_m2} [facility] Comment on above: *The estimated Glome rular Filtration Rate(EGFR) may not be accurate for children under the age of 18 yrs. To estimate the GFR for -Americans multiply the result provided by 1.21. Stage 1 90 mL/min or greater Stage 2 60-89 mL/min Stage 3 30-59 mL/min Stage 4 15-29 mL/min Stage 5 14 mL/min or less Glucose [Mass/Vol] 155 mg/dL High 70 - 110 mg/dL [facility] Interpretation and review of laboratory results Abnormal [facility] Osmolality Calc [Osmolality] 270 266 - 309 [facility] Potassium [Moles/Vol] 3.6 mmol/L 3.6 - 5.0 mmol/L [facility] Protein [Mass/Vol] 6.6 g/dL 6.1 - 7.8 g/dL [facility] Sodium [Moles/Vol] 134 mmol/L Low 135 - 145 mmol/L [facility] Urea nitrogen [Mass/Vol] 9 mg/dL 2 - 32 mg/dL [facility] Urea nitrogen/Creatinine [Mass ratio] 9 mg/mg Low 10 - 20 [facility] Collection has been rescheduled by [facility] at 09/28/2024 11:10 Reason: no answer [facility] Fingerstick Glucoseon 2024 Glucose [Mass/Vol] 137 mg/dL High 70 - 110 mg/dL [facility] Interpretation and review of laboratory results Abnormal [facility] GLUCOSE, GLUCOMETERon 2024 Glucose [Mass/Vol] 137 mg/dL High 70-110 [facility] Comment on above: Performed By: #### L US7686 ####[id number] [place] [address] LACTIC ACIDon 09-28-2024 Lactate [Moles/Vol] 1.3 mmol/L Normal 0.5-1.9 [facility] Comment on above: Order Comment: Colle ction has been rescheduled by [facility] at 09/28/2024 11:10 Reason: noanswer Performed By: #### L YC1062, ILN4516 ####[facility] [address] [place] [address] No Panel Informationon 09-28 Collection has been rescheduled by M at 09/28/2024 11:10 Reason: no answer [facility] Collection has been rescheduled by [facility] at 09/28/2024 11:10 Reason: no answer [facility] PROCALCITONIN, Son PROCALCITONIN, S 0.15 ng/mL Normal [facility] Comment on above: Order Comment: Yahaira bradley has been rescheduled by [facility] at 09/28/2024 11:10 Reason: noanswer Result Comment: . <0 .05 ng/mL Healthy individuals. <0.50 ng/mL Systemic infection (sepsis) is not likely. 0.50 - 2.00 ng/mL Systemic infection (sepsis) is possible, but other conditions are known to induce PCT as well. 2.00 - 10.00 ng/mL Systemic infection (sepsis) is likely, unless other causes are known. >=10.00 ng/mL Important systemic inflammatory response, almost exclusively due to severe bacterial sepsis or septic shock. Performed By: #### L BZ1881, MFE6843 ####BABAT[place]DE [id number] [place] [address] PT AND APTTon 09-28-2024 aPTT Coag (Bld) [Time] 38.6 s High 24.2-34.2 [facility] Comment on above: Order Comment: Yahaira bradley has been rescheduled by [facility] at 09/28/2024 11:10 Reason: noanswer Performed By: #### L AL9980, FWK9722, NZL3954, LEO6588 ####[facility] [address] [place] [address] INR Coag (PPP) [Relative time] 1.6 {INR} High 0.9-1.1 [facility] Comment on above: LEVEL OF THERAPY IND ICATIONS TARGET INR RANGE STANDARD DOSE TREATMENT OF VENOUS THROMBOSIS 2.0-3.0 TREATMENT OF PULMONARY EMBOLUS PROPHYLAXIS AGAINST VENOUS THROMBOSIS BY SYSTEMIC EMBOLIZATION . HIGH DOSE HIGH RISK PATIENTS WITH 2.5-3.5 MECHANICAL HEART VALVES Order Comment: Yahaira bradley has been rescheduled by [facility] at 09/28/2024 11:10 Reason: noanswer Result Comment: LEVE L OF THERAPY INDICATIONS TARGET INR RANGESTANDARD DOSE TREATMENT OF VENOUS THROMBOSIS 2.0-3.0 TREATMENT OF PULMONARY EMBOLUS PROPHYLAXIS AGAINST VENOUS THROMBOSIS BY SYSTEMIC EMBOLIZATION .HIGH DOSE HIGH RISK PATIENTS WITH 2.5-3.5 MECHANICAL HEART VALVES Performed By: #### L FR1385, ZXA8380, PJA5548, MNK2172 ####BABATUNDE [facility] [address] [place] [address] PT Coag (PPP) [Time] 18.5 s High 10.1-13.7 [facility] Comment on above: Order Comment: Yahaira bradley has been rescheduled by [facility] at 09/28/2024 11:10 Reason: noanswer Performed By: #### L NO0738, UBD9104, KVO5686, EFN8009 ####BABATUNDE [facility] [place] [address] PT/APTT/INRon 09-28-2024 aPTT Coag (PPP) [Time] 38.6 s High 24.2 - 34.2 s [facility] Interpretation and review of laboratory results Abnormal [facility] Collection has been rescheduled by [facility] at 09/28/2024 11:10 Reason: no answer [facility] Procalcitonin, QN, Son 09-28 Procalcitonin [Mass/Vol] 0.15 ng/mL [facility] Comment on above: . <0.05 ng/mL Healthy individuals. <0.50 ng/mL Systemic infection (sepsis) is not likely. 0.50 - 2.00 ng/mL Systemic infection (sepsis) is possible, but other conditions are known to induce PCT as well. 2.00 - 10.00 ng/mL Systemic infection (sepsis) is likely, unless other causes are known. >=10.00 ng/mL Important systemic inflammatory response, almost exclusively due to severe bacterial sepsis or septic shock. Troponin I HS, baselineon Troponin I HS, baseline 3 Normal 0-15 [facility] Comment on above: Order Comment: Yahaira bradley has been rescheduled by [facility] at 09/28/2024 11:10 Reason: noanswer Result Comment: For Males 20 ng/L is the AMI cutoff for males.For Females 15 ng/L is the AMI cutoff for females. Performed By: #### L OK0077 ####[facility] [address] [place] [address] Troponin I, HS, baselineon 0 09-28-2024 Troponin I.cardiac High sensitivity method [Mass/Vol] 3 0 - 15 [facility] Comment on above: For Males 20 ng/L is the AMI cutoff for males. For Females 15 ng/L is the AMI cutoff for females. CBC w/ Differentialon 2024 Basophil Abs. 0.0 10*3/uL Normal 0.0-0.1 [facility] Comment on above: Performed By: #### L WJ5288, BAK8784, IZG0985, ANM7976 ####[place] [address] Basophils/100 WBC (Bld) 0.6 % Normal 0.0-1.0 [facility] Comment on above: Performed By: #### L ED3668, RQF5301, WZK7652, IKN8773 ####[place] [address] Differential type Auto Normal [facility] Comment on above: Performed By: #### L BJ4896, GNW5305, GUO5863, UCF6298 ####[place] [address] Eosinophils (Bld) [#/Vol] 0.3 10*3/uL Normal 0.0-0.5 [facility] Comment on above: Performed By: #### L HF2301, IWL8336, YYW6235, IMN1918 ####[place] [address] Eosinophils/100 WBC (Bld) 3.9 % Normal 0.3-5.0 [facility] Comment on above: Performed By: #### L VC7055, MXZ3041, WMT6300, LMV6180 ####[place] [address] Erythrocyte distribution width (RBC) [Ratio] 15.7 % Normal 10.7-18.7 [facility] Comment on above: Performed By: #### L VU6800, RIN4526, DJR2658, TGB1820 ####[place] [address] Hematocrit (Bld) [Volume fraction] 38.3 % Normal 33.0-51.0 [facility] Comment on above: Performed By: #### L [id number], HYP8957, LEL2826, BNG3900 ####[place] [address] Hemoglobin (Bld) [Mass/Vol] 13.0 g/dL Normal 12.0-16.0 [facility] Comment on above: Performed By: #### L WA8076, LLH6200, HJX1414, NTP6611 ####[place] [address] Lymphocytes (Bld) [#/Vol] 0.9 10*3/uL Low 1.1-5.0 [facility] Comment on above: Performed By: #### L FZ7685, CBO6878, JMV9736, BNO8476 ####[place] [address] Lymphocytes/100 WBC (Bld) 14.4 % Low 24.0-44.0 [facility] Comment on above: Performed By: #### L MD7538, TWN8954, JFY4527, PZZ8051 ####[place] [address] MCH (RBC) [Entitic mass] 32.5 pg Normal 26.0-34.0 [facility] Comment on above: Performed By: #### L [id number], XXU4696, QGP0625, [id number] ####[place] [address] MCHC (RBC) [Mass/Vol] 33.9 g/dL Normal 32.0-36.0 [facility] Comment on above: Performed By: #### L WI2307, FTX7894, YZO1961, QQW4453 ####[place] [address] MCV (RBC) [Entitic vol] 96.1 fL Normal 80.0-100.0 [facility] Comment on above: Performed By: #### L XP6023, DGT7152, GID5285, JAR0713 ####[place] [address] Monocytes (Bld) [#/Vol] 0.7 10*3/uL Normal 0.0-1.4 [facility] Comment on above: Performed By: #### L VX7956, UOP7596, FXD0141, YCQ8538 ####[address] [address] Monocytes/100 WBC (Bld) 10.0 % Normal 2.1-13.3 [facility] Comment on above: Performed By: #### L KK2323, DJN6621, ZHJ8354, TCO6930 ####[place] [address] Neutrophils, Abs. 4.7 10*3/uL Normal 1.5-8.5 [facility] Comment on above: Performed By: #### L BR3864, MXK0331, XGZ3380, NLI6727 ####[address] [address] Neutrophils/100 WBC (Bld) 71.1 % High 35.0-66.0 [facility] Comment on above: Performed By: #### L EK1213, YKT7438, FID8815, BQN3564 ####[place] [address] Platelet Cnt 51 10*3/uL Low 150-450 [facility] Comment on above: Performed By: #### L LI7262, PZX9100, TDY5844, WBB6000 ####[place] [address] Platelet mean volume (Bld) [Entitic vol] 9.2 fL Normal 6.5-10.0 [facility] Comment on above: Performed By: #### L VG8913, KUN1653, LDJ2815, DLO4837 ####[place] [address] RBC (Bld) [#/Vol] 3.99 10*6/uL Low 4.00-5.20 [facility] Comment on above: Performed By: #### L KY8997, YHK2016, MHU5419, MCE0158 ####[place] [address] WBC (Bld) [#/Vol] 6.6 10*3/uL Normal 4.5-11.0 [facility] Comment on above: Performed By: #### L DX7645, DPP1746, DSW1761, NJY0631 ####[place] [address] COMPREHENSIVE METABOLIC PANE Merritt 09-27-2024 Albumin [Mass/Vol] 3.1 g/dL Low 3.2-5.0 [facility] Comment on above: Performed By: #### L EL6545, TZY5816, QGO7737, KNZ8969 ####[place] [address] Albumin/Globulin [Mass ratio] 0.8 {ratio} Normal [facility] Comment on above: Performed By: #### L PS1361, SXA8562, WAL1313, QPN4045 ####[place] [address] ALP [Catalytic activity/Vol] 141 U/L High 42-121 [facility] Comment on above: Performed By: #### L RH7408, NGV8213, ZJP6033, DNL1387 ####[place] [address] ALT [Catalytic activity/Vol] 74 U/L High 10-60 [facility] Comment on above: Performed By: #### L OV1564, EVP2870, NBU5324, GED4839 ####[place] [address] Anion gap [Moles/Vol] 5 mmol/L Normal [facility] Comment on above: Performed By: #### L PZ4361, BDP2312, TVC1914, RND8789 ####[place] [address] AST [Catalytic activity/Vol] 113 U/L High 10-42 [facility] Comment on above: Performed By: #### L AU0761, IOI4159, AUZ1642, MGW6229 ####[place] [address] B/C 9 Low 10-20 [facility] Comment on above: Performed By: #### L RE8703, GKG4500, KHG1871, FFQ6833 ####[place] [address] Bilirubin.direct [Mass/Vol] 2.0 mg/dL High 0.2-1.0 [facility] Comment on above: Performed By: #### L LF5791, RAE4140, IKD1337, AEG4122 ####[place] [address] Calcium [Mass/Vol] 9.0 mg/dL Normal 8.5-10.5 [facility] Comment on above: Performed By: #### L HD0197, IAU7597, QMZ4859, OGL1593 ####[place] [address] Chloride [Moles/Vol] 108 mmol/L Normal 101-111 [facility] Comment on above: Performed By: #### L FB9405, UJW0644, YZH9218, TXE7315 ####[place] [address] CO2 [Moles/Vol] 25 mmol/L Normal 21-31 [facility] Comment on above: Performed By: #### L SM8985, QTN5887, SGU1808, UQF0201 ####[place] [address] Creatinine [Mass/Vol] 0.8 mg/dL Normal 0.4-1.0 [facility] Comment on above: Performed By: #### L KV5874, TGB4308, WIM6622, CJO6703 ####[place] [address] GFR/1.73 sq M.predicted MDRD (S/P/Bld) [Vol rate/Area] 76 mL/min/{1.73_m2} Normal [facility] Comment on above: Result Comment: *The estimated Glomerular Filtration Rate(EGFR) may not be accurate for children under the age of 18 yrs. To estimate the GFR for -Americans multiply the result provided by 1.21.Stage 1 90 mL/min or greaterStage 2 60-89 mL/minStage 3 30-59 mL/minStage 4 15-29 mL/minStage 5 14 mL/min or less Performed By: #### L DQ1781, IIH0327, LKS6572, UER0828 ####[address] [address] Glucose [Mass/Vol] 87 mg/dL Normal 70-110 [facility] Comment on above: Performed By: #### L AS6046, OYU8134, DMN1469, XQP2176 ####[address] [address] Osmolality [Osmolality] 273 mosm/kg Normal 266-309 [facility] Comment on above: Performed By: #### L FC1662, MPB7029, KPQ5612, IYS8472 ####[address] [address] Potassium [Moles/Vol] 3.9 mmol/L Normal 3.6-5.0 [facility] Comment on above: Performed By: #### L KJ4000, QDH5719, KLQ2077, LCG5984 ####[address] [address] Protein [Mass/Vol] 7.0 g/dL Normal 6.1-7.8 [facility] Comment on above: Performed By: #### L MO3787, VOL1645, BWO8129, SBI8540 ####[address] [address] Sodium [Moles/Vol] 138 mmol/L Normal 135-145 [facility] Comment on above: Performed By: #### L OX9575, XNH9424, CUV5837, WUC3733 ####[address] [address] Urea nitrogen [Mass/Vol] 7 mg/dL Normal 2-32 [facility] Comment on above: Performed By: #### L WR5479, ZOE6981, CZV9175, UNZ8249 ####[facility] [place] [address] MAGNESIUMon 09-27-2024 Magnesium [Mass/Vol] 1.6 mg/dL Low 1.7-2.8 [facility] Comment on above: Performed By: #### L BI5910, AFM3367, HZR3277, KGW1384 ####[address] [place] [address] PT INRon 09-27-2024 INR Coag (PPP) [Relative time] 1.5 {INR} High 0.9-1.1 [facility] Comment on above: Result Comment: CORRIE Luciano OF THERAPY INDICATIONS TARGET INR RANGESTANDARD DOSE TREATMENT OF VENOUS THROMBOSIS 2.0-3.0 TREATMENT OF PULMONARY EMBOLUS PROPHYLAXIS AGAINST VENOUS THROMBOSIS BY SYSTEMIC EMBOLIZATION .HIGH DOSE HIGH RISK PATIENTS WITH 2.5-3.5 MECHANICAL HEART VALVES Performed By: #### L FA9283, YTM0716, DKQ6215, BCN9083 ####[address] [place] [address] PT Coag (PPP) [Time] 18.1 s High 10.1-13.7 [facility] Comment on above: Performed By: #### L WJ3555, UUW9556, ELK6307, YEB9038 ####[address] [place] [address] Vascular Procedureon 025 : Technically successful ultrasound-guided therapeutic paracentesis with aspiration of 1650 cc of clear mike fluid. SIGNED: Ginger Milton MD 09/27/2024 11:30 AM [facility] INTERVENTIONAL RADIOLOGY REPORT PATIENT: Carolina Hightower DATE OF : 1975 PROCEDURE: Ultrasound-guided therapeutic paracentesis. INDICATION: Symptomatic ascites. COMPLICATIONS: none SEDATION: none TECHNIQUE: Potential risk and benefits were discussed with and informed consent was obtained. The patient was brought to the angiography lab and placed in a supine position. Sonographic evaluation of the abdomen demonstrated a moderate amount of free peritoneal fluid. Sonographic images were obtained and saved to the patient's chart. Skin site on the right abdomen was marked. The area was prepped and draped in a sterile fashion with local anesthesia provided using 1% buffered lidocaine. A 6.5 Swedish non-locking Resolve pigtail catheter was advanced into the peritoneal space. 1650 cc of clear mike fluid were obtained. The catheter was removed intact. A dry sterile dressing was applied to the puncture site. The patient tolerated the procedure well and there were no immediate complications. The patient was given no IV albumin. FINDINGS: Moderate amount of free peritoneal fluid/ascites. [facility] Radiology Study observation (narrative) [facility] VASCULAR PROCEDUREon 024 VASCULAR PROCEDURE Normal [facility] VASCULAR PROCEDURE Normal [facility] Vascular Procedureon 024 [facility] Radiology Study observation (narrative) [facility] CBC w/ Differentialon 2023 Basophil Abs. 0.0 10*3/uL Normal 0.0-0.1 [facility] Comment on above: Performed By: #### L GT3107, DEA1004, UJT4738, NCY3234, MRG3368 ####[place] [address] Basophils/100 WBC (Bld) 0.4 % Normal 0.0-1.0 [facility] Comment on above: Performed By: #### L ZM8245, PWP0709, ETH1819, IRW3072, SIE8182 ####[address] [address] Differential type Auto Normal [facility] Comment on above: Performed By: #### L VL3791, CBI7936, QPV6086, WSV6824, YLH8958 ####[facility] [address] [place] [address] Eosinophils (Bld) [#/Vol] 0.3 10*3/uL Normal 0.0-0.5 [facility] Comment on above: Performed By: #### L BP1836, AUI8688, ODG8972, HEW7608, CMW3044 ####[address] [address] Eosinophils/100 WBC (Bld) 4.8 % Normal 0.3-5.0 [facility] Comment on above: Performed By: #### L BH7577, TUY9838, BTB2935, HLD2336, OBB2117 ####[place] [address] Erythrocyte distribution width (RBC) [Ratio] 15.8 % Normal 10.7-18.7 [facility] Comment on above: Performed By: #### L NT0095, NIL1782, NCX9035, FCZ7909, DSS7223 ####[place] [address] Hematocrit (Bld) [Volume fraction] 37.1 % Normal 33.0-51.0 [facility] Comment on above: Performed By: #### L WS9792, AIS2572, DCQ7406, FDG7083, UFT8247 ####[place] [address] Hemoglobin (Bld) [Mass/Vol] 12.4 g/dL Normal 12.0-16.0 [facility] Comment on above: Performed By: #### L QV8127, PFW9131, VYL6172, WSR8554, FGS4255 ####[place] [address] Lymphocytes (Bld) [#/Vol] 0.9 10*3/uL Low 1.1-5.0 [facility] Comment on above: Performed By: #### L VC8868, JUJ9843, ABQ3564, YJP3017, JCP9434 ####[place] [address] Lymphocytes/100 WBC (Bld) 17.6 % Low 24.0-44.0 [facility] Comment on above: Performed By: #### L OC5407, ALJ0085, QYW8783, GDS7879, GXS9538 ####[place] [address] MCH (RBC) [Entitic mass] 32.8 pg Normal 26.0-34.0 [facility] Comment on above: Performed By: #### L NA7243, UJZ4434, PRT0325, JBG3088, UJK6263 ####[place] [address] MCHC (RBC) [Mass/Vol] 33.3 g/dL Normal 32.0-36.0 [facility] Comment on above: Performed By: #### L EM3966, DBS3984, KWQ6960, AHR6934, HEX5747 ####[place] [address] MCV (RBC) [Entitic vol] 98.5 fL Normal 80.0-100.0 [facility] Comment on above: Performed By: #### L SP4470, FBL6577, PTN1038, PHK0464, PFG2078 ####[place] [address] Monocytes (Bld) [#/Vol] 0.6 10*3/uL Normal 0.0-1.4 [facility] Comment on above: Performed By: #### L CW5676, MMW0940, NIE6044, JSG2601, JTV5236 ####[place] [address] Monocytes/100 WBC (Bld) 11.0 % Normal 2.1-13.3 [facility] Comment on above: Performed By: #### L LX9253, WEF7437, LKI8050, JEI5114, CPM1471 ####[place] [address] Neutrophils, Abs. 3.4 10*3/uL Normal 1.5-8.5 [facility] Comment on above: Performed By: #### L XZ1703, JWV1516, GYK9326, ABA7462, SUN2274 ####[place] [address] Neutrophils/100 WBC (Bld) 66.3 % High 35.0-66.0 [facility] Comment on above: Performed By: #### L JH6604, VEN2199, MQS1919, LEL7915, TVN4060 ####[place] [address] Platelet Cnt 55 10*3/uL Low 150-450 [facility] Comment on above: Performed By: #### L XW5299, WAM3769, YLI7637, LVK5081, EJJ3482 ####[place] [address] Platelet mean volume (Bld) [Entitic vol] 10.4 fL High 6.5-10.0 [facility] Comment on above: Performed By: #### L QR0187, NQT4203, MRU3529, KVU4835, GKI8505 ####[place] [address] RBC (Bld) [#/Vol] 3.77 10*6/uL Low 4.00-5.20 [facility] Comment on above: Performed By: #### L UB4893, PPB8724, OMD6200, SZW9377, QXH2351 ####[place] [address] WBC (Bld) [#/Vol] 5.1 10*3/uL Normal 4.5-11.0 [facility] Comment on above: Performed By: #### L ZC7322, YQN0316, CFR9082, BSE6740, BKV8931 ####[place] [address] COMPREHENSIVE METABOLIC PANE Merritt 09-11-2024 Albumin [Mass/Vol] 2.9 g/dL Low 3.2-5.0 [facility] Comment on above: Performed By: #### L ZQ3059, CGP9662, NTX9832, VPV7824, VED6072 ####[place] [address] Albumin/Globulin [Mass ratio] 0.8 {ratio} Normal [facility] Comment on above: Performed By: #### L ZH1838, YNT9330, IZC7753, SOQ9200, CUP8458 ####[facility] [address] [place] [address] ALP [Catalytic activity/Vol] 129 U/L High 42-121 [facility] Comment on above: Performed By: #### L OF1591, HSH0270, LTZ9338, RNC5231, BJS8993 ####[place] [address] ALT [Catalytic activity/Vol] 68 U/L High 10-60 [facility] Comment on above: Performed By: #### L RJ8471, NNO1573, PJP3806, QBF2345, XPY7492 ####[place] [address] Anion gap [Moles/Vol] 5 mmol/L Normal [facility] Comment on above: Performed By: #### L JZ5152, EYP3332, ZAD2468, RVJ3466, HZJ1901 ####[place] [address] AST [Catalytic activity/Vol] 115 U/L High 10-42 [facility] Comment on above: Performed By: #### L AT5489, GAE8559, YLE5116, KSD6897, KMX4558 ####[place] [address] B/C 10 Normal 10-20 [facility] Comment on above: Performed By: #### L QV6555, AVZ9647, SGC4385, UDI4284, VNL1737 ####[place] [address] Bilirubin.direct [Mass/Vol] 1.6 mg/dL High 0.2-1.0 [facility] Comment on above: Performed By: #### L RB4691, CVG3156, GJV8727, TBU3406, LIT7861 ####[place] [address] Calcium [Mass/Vol] 8.8 mg/dL Normal 8.5-10.5 [facility] Comment on above: Performed By: #### L KD0726, UKI6694, KPU4680, PRF0135, EJW7476 ####[place] [address] Chloride [Moles/Vol] 109 mmol/L Normal 101-111 [facility] Comment on above: Performed By: #### L PI6279, KDB8740, QSB5841, LJN3666, BMR0444 ####[place] [address] CO2 [Moles/Vol] 25 mmol/L Normal 21-31 [facility] Comment on above: Performed By: #### L NK8608, WCR7201, ZEO6756, FED9506, WOK9796 ####[place] [address] Creatinine [Mass/Vol] 1.0 mg/dL Normal 0.4-1.0 [facility] Comment on above: Performed By: #### L KI7885, JUS8685, DJV8665, FIL0624, KDR0794 ####[place] [address] GFR/1.73 sq M.predicted MDRD (S/P/Bld) [Vol rate/Area] 58 mL/min/{1.73_m2} Normal [facility] Comment on above: Result Comment: *The estimated Glomerular Filtration Rate(EGFR) may not be accurate for children under the age of 18 yrs. To estimate the GFR for -Americans multiply the result provided by 1.21.Stage 1 90 mL/min or greaterStage 2 60-89 mL/minStage 3 30-59 mL/minStage 4 15-29 mL/minStage 5 14 mL/min or less Performed By: #### L KP9390, DYM6257, QDA9059, KGM9774, ZCI7536 ####[place] [address] Glucose [Mass/Vol] 83 mg/dL Normal 70-110 [facility] Comment on above: Performed By: #### L QH3540, KYF2009, THU9621, XGL2388, LNL4174 ####[address] [address] Osmolality [Osmolality] 276 mosm/kg Normal 266-309 [facility] Comment on above: Performed By: #### L PK4203, ZPG7059, NQU1412, EMM5732, VTH9320 ####[address] [address] Potassium [Moles/Vol] 3.9 mmol/L Normal 3.6-5.0 [facility] Comment on above: Performed By: #### L BV7004, VCO4918, DVC8936, HAV7121, IQQ8351 ####[address] [address] Protein [Mass/Vol] 6.5 g/dL Normal 6.1-7.8 [facility] Comment on above: Performed By: #### L LX0813, UOB0285, MGQ0575, XKG1310, FMF1994 ####[address] [address] Sodium [Moles/Vol] 139 mmol/L Normal 135-145 [facility] Comment on above: Performed By: #### L CK7284, JSS2178, JMJ1070, AYN3897, GUN6854 ####[place] [address] Urea nitrogen [Mass/Vol] 10 mg/dL Normal 2-32 [facility] Comment on above: Performed By: #### L HO2925, NPL6660, UIN8413, SEH9269, BCH6710 ####[address] [address] FERRITINon 09-11-2024 Ferritin [Mass/Vol] 41.1 ng/mL Normal 11.0-306.8 [facility] Comment on above: Performed By: #### L RZ1459, MPH4745, GFU5762, TER1589, OSR5391 ####[address] [address] IRON AND TOTAL IRON BINDING CAPACITYon 09-11-2024 % SATURATION 46 % Normal 15-55 [facility] Comment on above: Performed By: #### L IK7922, WRI2279, YSP1254, VGO0681, CWA8362 ####[address] [address] Iron [Mass/Vol] 132 ug/dL Normal 40-150 [facility] Comment on above: Performed By: #### L GJ3639, ZVQ7203, UBT5396, OND4095, CGG2370 ####[place] [address] IRON BIND. CAP.,TOT 287 ug/dL Normal 250-400 [facility] Comment on above: Performed By: #### L OV9443, IOM8572, JCP4909, QLU2971, SWF8162 ####[place] [address] Transferrin [Mass/Vol] 205.00 mg/dL Normal 192.00-382. 00 [facility] Comment on above: Performed By: #### L WZ5556, UPB0641, WNB4446, WNQ6651, HQA3121 ####[place] [address] UIBC 155 ug/dL Normal 150-375 [facility] Comment on above: Performed By: #### L CF2137, DVT6902, KKX6457, SHW3397, GMA3541 ####[place] [address] PT INRon 09-11-2024 INR Coag (PPP) [Relative time] 1.4 {INR} High 0.9-1.1 [facility] Comment on above: Result Comment: CORRIE Luciano OF THERAPY INDICATIONS TARGET INR RANGESTANDARD DOSE TREATMENT OF VENOUS THROMBOSIS 2.0-3.0 TREATMENT OF PULMONARY EMBOLUS PROPHYLAXIS AGAINST VENOUS THROMBOSIS BY SYSTEMIC EMBOLIZATION .HIGH DOSE HIGH RISK PATIENTS WITH 2.5-3.5 MECHANICAL HEART VALVES Performed By: #### L ZL8580, PVZ9412, PEL6259, SNZ3535, KSP7288 ####[place] [address] PT Coag (PPP) [Time] 16.9 s High 10.1-13.7 [facility] Comment on above: Performed By: #### L IT3380, XNY2576, DXG5896, IUM7621, CBX6805 ####[place] [address] VASCULAR PROCEDUREon 024 VASCULAR PROCEDURE Normal [facility] VASCULAR PROCEDURE Normal [facility] FLUID CELL COUNTon 4 Basophils/100 WBC (Bld) 0 % Normal [facility] Comment on above: Order Comment: Ascit es Performed By: #### L NU9456, DXA4545, AIC1019, QVK4442, HXV0469, RJV9952 ####[facility] [place] [address] Eosinophils/100 WBC (Bld) 0 % Normal [facility] Comment on above: Order Comment: Ascit es Performed By: #### L PR2412, XBQ8636, KBU6537, XNZ5130, ZXB4727, DUE7909 ####[facility] [place] [place] [address] Lymphocytes/100 WBC (Bld) 11 % Normal [facility] Comment on above: Order Comment: Ascit es Performed By: #### L KP9563, VCV3458, YUW9845, LYP8892, EKV7425, ZUP3617 ####[facility] [address] [place] [address] MACROPHAGES 79 % Normal [facility] Comment on above: Order Comment: Ascit es Performed By: #### L EN3413, DXW6823, DKK1676, DIF0679, AJH7472, IYC5363 ####[id number] [place] [address] MESOTHELIAL 3 % Normal [facility] Comment on above: Order Comment: Ascit es Performed By: #### L UM3726, JVJ1535, YZG6431, ILR4319, VEU5562, HUD9458 ####[facility] [address] [place] [address] Neutrophils/100 WBC (Bld) 7 % Normal [facility] Comment on above: Order Comment: Ascit es Performed By: #### L GO8172, YGF2205, KMJ7263, OYF0977, OXS8358, UPJ9868 ####[place] [address] PATHOLOGY REVIEW see below Normal [facility] Comment on above: Order Comment: Ascit es Result Comment: REVI EWED BY DR. ALEXANDRU KILLIAN: Agree with differential. 09/10/2024 Performed By: #### L LV2680, JHS1234, ACY4474, KII9642, PZZ6744, YPQ0216 ####[facility] [place] [address] PLASMA CELLS 0 % Normal [facility] Comment on above: Order Comment: Ascit es Performed By: #### L OL6609, RWW2015, OCX7156, PAM7579, MGB1293, BIL5860 ####[place] [address] OTHER 0 Normal [facility] Comment on above: Order Comment: Ascit es Performed By: #### L IR4319, MBV0329, DDO1797, SOF7250, FGY8102, PDT0514 ####[place] [address] AMMONIAon 09-09-2024 Ammonia (P) [Moles/Vol] 98 umol/L High 11-50 [facility] Comment on above: Performed By: #### L OZ6812 ####[place] [address] CBC w/ Differentialon 2023 Basophil Abs. 0.0 10*3/uL Normal 0.0-0.1 [facility] Comment on above: Order Comment: Rodriguez d to and read back by plat called to irene pedersen, at 01:44 on 09/09/2024, LPH Performed By: #### L VJ4440, DYQ6700, NSF0533, KUE5705 ####[place] [address] Basophils/100 WBC (Bld) 0.7 % Normal 0.0-1.0 [facility] Comment on above: Order Comment: Rodriguez d to and read back by plat called to irene pedersen, at 01:44 on 09/09/2024, LPH Performed By: #### L VP8487, DDU4227, PAV9838, SBG4441 ####[place] [address] Differential type Auto Normal [facility] Comment on above: Order Comment: Rodriguez d to and read back by plat called to irene pedersen, at 01:44 on 09/09/2024, LPH Performed By: #### L CW1485, ABH1560, UNZ1596, GBX2115 ####[place] [address] Eosinophils (Bld) [#/Vol] 0.2 10*3/uL Normal 0.0-0.5 [facility] Comment on above: Order Comment: Rodriguez d to and read back by plat called to irene pedersen, at 01:44 on 09/09/2024, LPH Performed By: #### L AY8085, VVR7528, JZE5232, JLQ8902 ####[place] [address] Eosinophils/100 WBC (Bld) 4.2 % Normal 0.3-5.0 [facility] Comment on above: Order Comment: Rodriguez d to and read back by plat called to irene pedersen, at 01:44 on 09/09/2024, LPH Performed By: #### L WM6552, TYY9135, KTF3321, MAY1732 ####[place] [address] Erythrocyte distribution width (RBC) [Ratio] 16.1 % Normal 10.7-18.7 [facility] Comment on above: Order Comment: Rodriguez d to and read back by plat called to irene pedersen, at 01:44 on 09/09/2024, LPH Performed By: #### L LE6093, HIH1499, GLB1260, GHT3449 ####[place] [address] Hematocrit (Bld) [Volume fraction] 31.4 % Low 33.0-51.0 [facility] Comment on above: Order Comment: Rodriguez d to and read back by plat called to irene pedersen, at 01:44 on 09/09/2024, LPH Performed By: #### L XN3627, PCZ1903, MAH9198, TOV8897 ####[place] [address] Hemoglobin (Bld) [Mass/Vol] 10.5 g/dL Low 12.0-16.0 [facility] Comment on above: Order Comment: Rodriguez d to and read back by plat called to irene pedersen, at 01:44 on 09/09/2024, LPH Performed By: #### L MH2311, VYQ2843, AJT0026, RAM9805 ####[place] [address] Lymphocytes (Bld) [#/Vol] 1.0 10*3/uL Low 1.1-5.0 [facility] Comment on above: Order Comment: Rodriguez d to and read back by plat called to irene pedersen, at 01:44 on 09/09/2024, LPH Performed By: #### L NJ4709, WMP1469, QVI2348, DHW1556 ####[place] [address] Lymphocytes/100 WBC (Bld) 22.4 % Low 24.0-44.0 [facility] Comment on above: Order Comment: Rodriguez d to and read back by plat called to irene pedersen, at 01:44 on 09/09/2024, LPH Performed By: #### L TJ0382, XYE8124, MAI3584, ONX2304 ####[place] [address] MCH (RBC) [Entitic mass] 32.3 pg Normal 26.0-34.0 [facility] Comment on above: Order Comment: Rodriguez d to and read back by plat called to irene pedersen, at 01:44 on 09/09/2024, LPH Performed By: #### L ZF1419, GLN9854, ELF3521, ONF9194 ####[facility] [address] [address] MCHC (RBC) [Mass/Vol] 33.4 g/dL Normal 32.0-36.0 [facility] Comment on above: Order Comment: Rodriguez d to and read back by plat called to irene pedersen, at 01:44 on 09/09/2024, LPH Performed By: #### L [id number], [id number], [id number], [id number] ####[place] [address] MCV (RBC) [Entitic vol] 96.7 fL Normal 80.0-100.0 [facility] Comment on above: Order Comment: Rodriguez d to and read back by plat called to irene pedersen, at 01:44 on 09/09/2024, LPH Performed By: #### L [id number], [id number], [id number], [id number] ####[place] [address] Monocytes (Bld) [#/Vol] 0.7 10*3/uL Normal 0.0-1.4 [facility] Comment on above: Order Comment: Rodriguez d to and read back by plat called to irene pedersen, at 01:44 on 09/09/2024, LPH Performed By: #### L [id number], [id number], [id number], [id number] ####[place] [address] Monocytes/100 WBC (Bld) 14.4 % High 2.1-13.3 [facility] Comment on above: Order Comment: Rodriguez d to and read back by plat called to irene pedersen, at 01:44 on 09/09/2024, LPH Performed By: #### L [id number], [id number], [id number], [id number] ####[address] [address] Neutrophils, Abs. 2.7 10*3/uL Normal 1.5-8.5 [facility] Comment on above: Order Comment: Rodriguez d to and read back by plat called to irene pedersen, at 01:44 on 09/09/2024, LPH Performed By: #### L [id number], KYV0630, OFU7197, CUL0320 ####[place] [address] Neutrophils/100 WBC (Bld) 58.3 % Normal 35.0-66.0 [facility] Comment on above: Order Comment: Rodriguez d to and read back by plat called to irene pedersen, at 01:44 on 09/09/2024, LPH Performed By: #### L WO9877, WUU6218, BLG9768, WLW7102 ####[place] [address] Platelet Cnt 40 10*3/uL Critically low 150-450 [facility] Comment on above: Order Comment: Rodriguez d to and read back by plat called to irene pedersen, at 01:44 on 09/09/2024, LPH Performed By: #### L ZI9467, MCP2715, DTK2251, MJW8580 ####[place] [address] Platelet mean volume (Bld) [Entitic vol] 9.9 fL Normal 6.5-10.0 [facility] Comment on above: Order Comment: Rodriguez d to and read back by plat called to irene pedersen, at 01:44 on 09/09/2024, LPH Performed By: #### L CG2513, ZPV4121, AON3318, UPK0972 ####[place] [address] RBC (Bld) [#/Vol] 3.24 10*6/uL Low 4.00-5.20 [facility] Comment on above: Order Comment: Rodriguez d to and read back by plat called to irene pedersen, at 01:44 on 09/09/2024, LPH Performed By: #### L YH1088, OJD7429, QTI0037, REC3635 ####[place] [address] WBC (Bld) [#/Vol] 4.5 10*3/uL Normal 4.5-11.0 [facility] Comment on above: Order Comment: Rodriguez d to and read back by plat called to irene pedersen, at 01:44 on 09/09/2024, LPH Performed By: #### L JO3035, EJL7140, QXQ4335, EDU1315 ####[place] [address] COMPREHENSIVE METABOLIC PANE Merritt 09-09-2024 Albumin [Mass/Vol] 2.4 g/dL Low 3.2-5.0 [facility] Comment on above: Performed By: #### L YT0173, LJE3812, DSN5925, FLO2397 ####[place] [address] Albumin/Globulin [Mass ratio] 0.9 {ratio} Normal [facility] Comment on above: Performed By: #### L AJ7174, SWB2207, YOF2750, NPN4557 ####[place] [address] ALP [Catalytic activity/Vol] 117 U/L Normal 42-121 [facility] Comment on above: Performed By: #### L JM7699, WNC5367, CCP4955, AHT8900 ####[place] [address] ALT [Catalytic activity/Vol] 75 U/L High 10-60 [facility] Comment on above: Performed By: #### L CS3342, YYA0461, GCG3440, FHX9602 ####[place] [address] Anion gap [Moles/Vol] 4 mmol/L Normal [facility] Comment on above: Performed By: #### L GJ9581, OYA3392, QZH6605, WJE6929 ####[place] [address] AST [Catalytic activity/Vol] 134 U/L High 10-42 [facility] Comment on above: Performed By: #### L QQ9880, EVD8236, BAD6928, ZTM2221 ####[place] [address] B/C 9 Low 10-20 [facility] Comment on above: Performed By: #### L UR2986, FWK2548, ZVX3039, JXY7399 ####[facility] [address] [place] [address] Bilirubin.direct [Mass/Vol] 1.2 mg/dL High 0.2-1.0 [facility] Comment on above: Performed By: #### L BU2022, VQW1760, UGA7121, BZW1957 ####[facility] [address] [place] [address] Calcium [Mass/Vol] 8.4 mg/dL Low 8.5-10.5 [facility] Comment on above: Performed By: #### L ZL3920, OWM4497, GBG8512, EYJ2583 ####[facility] [address] [place] [address] Chloride [Moles/Vol] 105 mmol/L Normal 101-111 [facility] Comment on above: Performed By: #### L ML3912, RFZ9355, LVM2292, HIU3345 ####[facility] [address] [place] [address] CO2 [Moles/Vol] 24 mmol/L Normal 21-31 [facility] Comment on above: Performed By: #### L RL5927, NZX7117, KHE2931, XZB1642 ####[facility] [address] [place] [address] Creatinine [Mass/Vol] 0.9 mg/dL Normal 0.4-1.0 [facility] Comment on above: Performed By: #### L CQ8017, EBF5293, MLO3156, XNT2015 ####[facility] [address] [place] [address] GFR/1.73 sq M.predicted MDRD (S/P/Bld) [Vol rate/Area] 66 mL/min/{1.73_m2} Normal [facility] Comment on above: Result Comment: *The estimated Glomerular Filtration Rate(EGFR) may not be accurate for children under the age of 18 yrs. To estimate the GFR for -Americans multiply the result provided by 1.21.Stage 1 90 mL/min or greaterStage 2 60-89 mL/minStage 3 30-59 mL/minStage 4 15-29 mL/minStage 5 14 mL/min or less Performed By: #### L MN2635, OHU0117, HSN6007, CQW9487 ####BABAT[place] [address] [address] Glucose [Mass/Vol] 83 mg/dL Normal 70-110 [facility] Comment on above: Performed By: #### L KT0625, WHS8878, LHM8821, RPW7309 ####BABATUNDE [address] [address] Osmolality [Osmolality] 264 mosm/kg Low 266-309 [facility] Comment on above: Performed By: #### L EJ2768, CKA5387, ZVC0562, UFE7100 ####BABATUNDE [address] [address] Potassium [Moles/Vol] 4.1 mmol/L Normal 3.6-5.0 [facility] Comment on above: Performed By: #### L VT8521, DCN5478, NJV7139, TYB7578 ####BABATUNDE [address] [address] Protein [Mass/Vol] 5.2 g/dL Low 6.1-7.8 [facility] Comment on above: Performed By: #### L WN9188, PJJ4614, XAA8722, XWW8953 ####BABATUNDE [address] [address] Sodium [Moles/Vol] 133 mmol/L Low 135-145 [facility] Comment on above: Performed By: #### L ET5134, HEQ3912, DMC7254, XHO0025 ####[address] [address] Urea nitrogen [Mass/Vol] 8 mg/dL Normal 2-32 [facility] Comment on above: Performed By: #### L TC0691, RKX4970, KHN7560, CQC7223 ####BABATUNDE [address] [address] GLUCOSE, GLUCOMETERon 2023 Glucose [Mass/Vol] 138 mg/dL High 70-110 [facility] Comment on above: Performed By: #### L VW7850 ####[facility] [address] [place] [address] Glucose [Mass/Vol] 93 mg/dL Normal 70-110 [facility] Comment on above: Performed By: #### L RG1739 ####[place] [address] MAGNESIUMon 09-09-2024 Magnesium [Mass/Vol] 1.8 mg/dL Normal 1.7-2.8 [facility] Comment on above: Performed By: #### L QC5785, BUF6498, WIY6350, PKP4915 ####[place] [address] Recollect, Speicmenon 2023 Comment see below Normal [facility] Comment on above: Result Comment: Spec imen requires recollection. A new STAT test has been placed, to expediterecollection of specimen by phlebotomy team. Performed By: #### L ZU0318, LCV1078, TJD5599, SUJ2591 ####[place] [address] Notified [employer] irene pedersen Normal [facility] Comment on above: Performed By: #### L YF8628, ISU7143, AFZ1593, TKS3937 ####[place] [address] Test Name amm Normal [facility] Comment on above: Performed By: #### L GL8067, QNR4085, BNI0086, DCY5654 ####[place] [address] AMMONIAon 09-08-2024 Ammonia (P) [Moles/Vol] 52 umol/L High 11-50 [facility] Comment on above: Performed By: #### L TE3690, RRD8634, TWW6031, YWF8328 ####[place] [address] CBC w/ Differentialon 2023 Basophil Abs. 0.0 10*3/uL Normal 0.0-0.1 [facility] Comment on above: Performed By: #### L FT0238, IZU6775, YDB0511, EDL3573 ####[address] [address] Basophils/100 WBC (Bld) 0.7 % Normal 0.0-1.0 [facility] Comment on above: Performed By: #### L VN0696, YRD4470, JDM2685, UVW3018 ####[place] [address] Differential type Auto Normal [facility] Comment on above: Performed By: #### L ZX1635, GFG2397, VLE9396, MXO3050 ####[place] [address] Eosinophils (Bld) [#/Vol] 0.2 10*3/uL Normal 0.0-0.5 [facility] Comment on above: Performed By: #### L EW0126, ZWU6096, FKU5042, REA2465 ####[place] [address] Eosinophils/100 WBC (Bld) 3.7 % Normal 0.3-5.0 [facility] Comment on above: Performed By: #### L KR0522, FMO9116, TJV1569, OGN3165 ####[address] [address] Erythrocyte distribution width (RBC) [Ratio] 15.8 % Normal 10.7-18.7 [facility] Comment on above: Performed By: #### L CM1438, WOE2323, ORT2588, DLK5729 ####[place] [address] Hematocrit (Bld) [Volume fraction] 34.5 % Normal 33.0-51.0 [facility] Comment on above: Performed By: #### L SI2555, YTW1252, NSB0906, SCE1985 ####[place] [address] Hemoglobin (Bld) [Mass/Vol] 11.6 g/dL Low 12.0-16.0 [facility] Comment on above: Performed By: #### L RG7369, XGQ5352, UTT1902, GLN6099 ####[place] [address] Lymphocytes (Bld) [#/Vol] 1.0 10*3/uL Low 1.1-5.0 [facility] Comment on above: Performed By: #### L AB6138, BBL0570, YEK7213, PLU5422 ####[place] [address] Lymphocytes/100 WBC (Bld) 17.6 % Low 24.0-44.0 [facility] Comment on above: Performed By: #### L GF4202, CMV3838, MXN4676, RBA7276 ####[place] [address] MCH (RBC) [Entitic mass] 32.2 pg Normal 26.0-34.0 [facility] Comment on above: Performed By: #### L QC6994, KLS7821, ZFV3704, RLV5158 ####[place] [address] MCHC (RBC) [Mass/Vol] 33.7 g/dL Normal 32.0-36.0 [facility] Comment on above: Performed By: #### L WW0164, VOI0704, UEX6175, ANC8645 ####[place] [address] MCV (RBC) [Entitic vol] 95.7 fL Normal 80.0-100.0 [facility] Comment on above: Performed By: #### L FO7509, PGG3813, TNT5454, AIK9856 ####[place] [address] Monocytes (Bld) [#/Vol] 0.9 10*3/uL Normal 0.0-1.4 [facility] Comment on above: Performed By: #### L IH5941, VVU1794, NTF5487, RDK6115 ####[address] [address] Monocytes/100 WBC (Bld) 15.0 % High 2.1-13.3 [facility] Comment on above: Performed By: #### L WO2063, YLR3537, PXE4548, HCM4079 ####[address] [address] Neutrophils, Abs. 3.6 10*3/uL Normal 1.5-8.5 [facility] Comment on above: Performed By: #### L GJ3722, QRP5740, MFY5762, NBC7231 ####[address] [address] Neutrophils/100 WBC (Bld) 63.0 % Normal 35.0-66.0 [facility] Comment on above: Performed By: #### L FW0196, HXE1680, FTV4734, BPP2337 ####[place] [address] Platelet Cnt 57 10*3/uL Low 150-450 [facility] Comment on above: Performed By: #### L CE1806, YHW3614, VMI8874, ZKT4556 ####[address] [address] Platelet mean volume (Bld) [Entitic vol] 10.4 fL High 6.5-10.0 [facility] Comment on above: Performed By: #### L LV4435, MFB0574, VJA9715, MFZ0884 ####[place] [address] RBC (Bld) [#/Vol] 3.61 10*6/uL Low 4.00-5.20 [facility] Comment on above: Performed By: #### L IZ0236, AJV7868, RDL6696, EAG2914 ####[address] [address] WBC (Bld) [#/Vol] 5.7 10*3/uL Normal 4.5-11.0 [facility] Comment on above: Performed By: #### L EN1592, PQR6618, FUE8880, IBH2787 ####[facility] [place] [address] COMPREHENSIVE METABOLIC PANE Merritt 09-08-2024 Albumin [Mass/Vol] 2.7 g/dL Low 3.2-5.0 [facility] Comment on above: Order Comment: Rodriguez d to and read back by amy flores in u (gluc), at 03:02 on 09/08/2024,KMP Performed By: #### L OZ4207, UDT3524, MQT9286, IZB2178 ####[place] [address] Albumin/Globulin [Mass ratio] 0.8 {ratio} Normal [facility] Comment on above: Order Comment: Rodriguez d to and read back by amy flores in u (gluc), at 03:02 on 09/08/2024,KMP Performed By: #### L TD3127, DLI1335, IID5921, CPS5847 ####[place] [address] ALP [Catalytic activity/Vol] 115 U/L Normal 42-121 [facility] Comment on above: Order Comment: Rodriguez d to and read back by amy flores in u (gluc), at 03:02 on 09/08/2024,KMP Performed By: #### L SX6431, XCJ2540, APS5272, BXG7996 ####[facility] [address] [place] [address] ALT [Catalytic activity/Vol] 88 U/L High 10-60 [facility] Comment on above: Order Comment: Rodriguez d to and read back by amy flores in u (gluc), at 03:02 on 09/08/2024,KMP Performed By: #### L EL0508, NPD6947, DBX2550, LNR9638 ####[facility] [address] [place] [address] Anion gap [Moles/Vol] 5 mmol/L Normal [facility] Comment on above: Order Comment: Rodriguez d to and read back by amy flores in [facility] (gluc), at 03:02 on 09/08/2024,KMP Performed By: #### L ON6031, TVY0843, YEF0240, KNZ8413 ####[place] [address] AST [Catalytic activity/Vol] 150 U/L High 10-42 [facility] Comment on above: Order Comment: Rodriguez d to and read back by amy flores in [facility] (gluc), at 03:02 on 09/08/2024,KMP Performed By: #### L VM4692, JMP8312, QQS0816, KYY1499 ####[place] [address] B/C 10 Normal 10-20 [facility] Comment on above: Order Comment: Rodriguez d to and read back by amy flores in [facility] (gluc), at 03:02 on 09/08/2024,KMP Performed By: #### L UO4910, MTI0619, CCY2086, QOE6337 ####[place] [address] Bilirubin.direct [Mass/Vol] 1.4 mg/dL High 0.2-1.0 [facility] Comment on above: Order Comment: Rodriguez d to and read back by amy flores in u (gluc), at 03:02 on 09/08/2024,KMP Performed By: #### L VA7390, IYF6069, QOK3473, FKT4640 ####[place] [address] Calcium [Mass/Vol] 8.5 mg/dL Normal 8.5-10.5 [facility] Comment on above: Order Comment: Rodriguez d to and read back by amy flores in u (gluc), at 03:02 on 09/08/2024,KMP Performed By: #### L TA2752, RGC4034, SGS8650, CUC7940 ####[place] [address] Chloride [Moles/Vol] 100 mmol/L Low 101-111 [facility] Comment on above: Order Comment: Rodriguez d to and read back by amy flores in imu (gluc), at 03:02 on 09/08/2024,KMP Performed By: #### L KH9623, TGJ8953, SSE7814, KTF4825 ####[facility] [address] [place] [address] CO2 [Moles/Vol] 27 mmol/L Normal 21-31 [facility] Comment on above: Order Comment: Rodriguez d to and read back by amy flores in imu (gluc), at 03:02 on 09/08/2024,KMP Performed By: #### L UF6049, FBP0398, BXS5826, FOB2951 ####[address] [address] Creatinine [Mass/Vol] 0.9 mg/dL Normal 0.4-1.0 [facility] Comment on above: Order Comment: Rodriguez d to and read back by amy flores in imu (gluc), at 03:02 on 09/08/2024,KMP Performed By: #### L PW6263, KOL8058, HRZ5720, BIQ8389 ####[facility] [address] [place] [address] GFR/1.73 sq M.predicted MDRD (S/P/Bld) [Vol rate/Area] 66 mL/min/{1.73_m2} Normal [facility] Comment on above: Order Comment: Rodriguez d to and read back by amy flores in imu (gluc), at 03:02 on 09/08/2024,KMP Result Comment: *The estimated Glomerular Filtration Rate(EGFR) may not be accurate for children under the age of 18 yrs. To estimate the GFR for -Americans multiply the result provided by 1.21.Stage 1 90 mL/min or greaterStage 2 60-89 mL/minStage 3 30-59 mL/minStage 4 15-29 mL/minStage 5 14 mL/min or less Performed By: #### L BJ9819, XCK3866, XFA8544, OMW9343 ####[facility] [address] [address] Glucose [Mass/Vol] 55 mg/dL Critically low 70-110 [facility] Comment on above: Order Comment: Nichole connelly to and read back by amy flores in u (gluc), at 03:02 on 09/08/2024,KMP Performed By: #### L BY6109, ZKL5876, ZZR0461, ZIT0263 ####[address] [address] Osmolality [Osmolality] 261 mosm/kg Low 266-309 [facility] Comment on above: Order Comment: Nichole connelly to and read back by amy flores in u (gluc), at 03:02 on 09/08/2024,KMP Performed By: #### L NK9517, VRC0662, EJS0039, XGZ2459 ####[place] [address] Potassium [Moles/Vol] 3.9 mmol/L Normal 3.6-5.0 [facility] Comment on above: Order Comment: Nichole connelly to and read back by amy flores in u (gluc), at 03:02 on 09/08/2024,KMP Performed By: #### L FA7662, NIE8842, IBD1206, GNF2302 ####[address] [address] Protein [Mass/Vol] 6.0 g/dL Low 6.1-7.8 [facility] Comment on above: Order Comment: Rodriguez d to and read back by amy flores in u (gluc), at 03:02 on 09/08/2024,KMP Performed By: #### L SR1688, OZB9208, GLT4194, YRO8301 ####[facility] [address] [address] Sodium [Moles/Vol] 132 mmol/L Low 135-145 [facility] Comment on above: Order Comment: Nichole connelly to and read back by amy flores in imu (gluc), at 03:02 on 09/08/2024,KMP Performed By: #### L EB3151, YMY0634, GFT4916, KVR9193 ####BABATUNDE [address] [address] Urea nitrogen [Mass/Vol] 9 mg/dL Normal 2-32 [facility] Comment on above: Order Comment: Nichole connelly to and read back by amy flores in imu (gluc), at 03:02 on 09/08/2024,KMP Performed By: #### L GM8074, KHQ2696, UZO0010, FGL7736 ####BABATUNDE [address] [address] GLUCOSE, GLUCOMETERon 2023 Glucose [Mass/Vol] 144 mg/dL High 70-110 [facility] Comment on above: Performed By: #### L AC0536 ####BABATUNDE [address] [address] Glucose [Mass/Vol] 103 mg/dL Normal 70-110 [facility] Comment on above: Performed By: #### L DD8175 ####BABATUN[address] [address] Glucose [Mass/Vol] 141 mg/dL High 70-110 [facility] Comment on above: Performed By: #### L GJ7636 ####BABATUNDE [address] [address] Glucose [Mass/Vol] 105 mg/dL Normal 70-110 [facility] Comment on above: Performed By: #### L ZY7486 ####BABATUNDE [address] [address] Glucose [Mass/Vol] 57 mg/dL Critically low 70-110 [facility] Comment on above: Performed By: #### L TJ9808 ####BABATUNDE [address] [address] Glucose [Mass/Vol] 198 mg/dL High 70-110 [facility] Comment on above: Performed By: #### L YN7324 ####[place] [address] MAGNESIUMon 09-08-2024 Magnesium [Mass/Vol] 1.7 mg/dL Normal 1.7-2.8 [facility] Comment on above: Performed By: #### L MZ7153 ####[place] [address] Magnesium [Mass/Vol] 1.5 mg/dL Low 1.7-2.8 [facility] Comment on above: Order Comment: Rodriguez d to and read back by amy flores in imu (gluc), at 03:02 on 09/08/2024,KMP Performed By: #### L EJ7894, YPC9305, UXP0624, UDK7927 ####[place] [address] AMMONIAon 09-07-2024 Ammonia (P) [Moles/Vol] 75 umol/L High 11-50 [facility] Comment on above: Performed By: #### L ZY3780, MCT3353, BAI6196, XJX8826 ####[place] [address] CBC w/ Differentialon 2023 Basophil Abs. 0.0 10*3/uL Normal 0.0-0.1 [facility] Comment on above: Order Comment: Rodriguez d to and read back by Carson CORONEL Called, at 02:12 on 09/07/2024, SMS Performed By: #### L DH1634, FLD4291, IFO0807, EKN3881 ####[place] [address] Basophils/100 WBC (Bld) 0.9 % Normal 0.0-1.0 [facility] Comment on above: Order Comment: Rodriguez d to and read back by Carson CORONEL Called, at 02:12 on 09/07/2024, SMS Performed By: #### L KW4465, YLS7999, XMC0759, GKY6798 ####[address] [address] Differential type Auto Normal [facility] Comment on above: Order Comment: Rodriguez d to and read back by Carson CORONEL Called, at 02:12 on 09/07/2024, SMS Performed By: #### L AI2072, UFS2999, ZAT0573, FWS3827 ####[place] [address] Eosinophils (Bld) [#/Vol] 0.2 10*3/uL Normal 0.0-0.5 [facility] Comment on above: Order Comment: Rodriguez d to and read back by Carson CORONEL Called, at 02:12 on 09/07/2024, SMS Performed By: #### L SP8901, PXB4585, FJP2837, YCY7447 ####[place] [address] Eosinophils/100 WBC (Bld) 3.8 % Normal 0.3-5.0 [facility] Comment on above: Order Comment: Rodriguez d to and read back by Carson CORONEL Called, at 02:12 on 09/07/2024, SMS Performed By: #### L XB7732, BEK3415, TGI7374, CNR0267 ####[place] [address] Erythrocyte distribution width (RBC) [Ratio] 16.0 % Normal 10.7-18.7 [facility] Comment on above: Order Comment: Rodriguez d to and read back by Carson CORONEL Called, at 02:12 on 09/07/2024, SMS Performed By: #### L ZS5444, JMV9147, HAE2916, BUK1588 ####[place] [address] Hematocrit (Bld) [Volume fraction] 32.1 % Low 33.0-51.0 [facility] Comment on above: Order Comment: Rodriguez d to and read back by Carson CORONEL Called, at 02:12 on 09/07/2024, SMS Performed By: #### L WH3119, UKK9830, QGA2892, JOM8673 ####[facility] [address] [place] [address] Hemoglobin (Bld) [Mass/Vol] 11.0 g/dL Low 12.0-16.0 [facility] Comment on above: Order Comment: Rodriguez d to and read back by Carson CORONEL Called, at 02:12 on 09/07/2024, SMS Performed By: #### L LA2333, RYT5922, EJL4329, GNN5305 ####[facility] [address] [place] [address] Lymphocytes (Bld) [#/Vol] 1.2 10*3/uL Normal 1.1-5.0 [facility] Comment on above: Order Comment: Rodriguez d to and read back by Carson CORONEL Called, at 02:12 on 09/07/2024, SMS Performed By: #### L MT3441, BFY7217, EDW4683, GYF8455 ####[place] [address] Lymphocytes/100 WBC (Bld) 23.8 % Low 24.0-44.0 [facility] Comment on above: Order Comment: Rodriguez d to and read back by Carson CORONEL Called, at 02:12 on 09/07/2024, SMS Performed By: #### L JB7512, WRY3336, BUA2160, WGN5806 ####[place] [address] MCH (RBC) [Entitic mass] 32.9 pg Normal 26.0-34.0 [facility] Comment on above: Order Comment: Rodriguez d to and read back by Carson CORONEL Called, at 02:12 on 09/07/2024, SMS Performed By: #### L BB8453, RYF7744, ASV7821, KBN4317 ####[facility] [place] [place] [address] MCHC (RBC) [Mass/Vol] 34.4 g/dL Normal 32.0-36.0 [facility] Comment on above: Order Comment: Rodriguez d to and read back by Carson CORONEL Called, at 02:12 on 09/07/2024, SMS Performed By: #### L BT7486, BNR8661, KSH8131, BUT6726 ####[facility] [address] [place] [address] MCV (RBC) [Entitic vol] 95.8 fL Normal 80.0-100.0 [facility] Comment on above: Order Comment: Rodriguez d to and read back by Carson CORONEL Called, at 02:12 on 09/07/2024, SMS Performed By: #### L ZC0077, HGL5250, SZR6075, OJG9747 ####[place] [address] Monocytes (Bld) [#/Vol] 0.6 10*3/uL Normal 0.0-1.4 [facility] Comment on above: Order Comment: Rodriguez d to and read back by Carson CORONEL Called, at 02:12 on 09/07/2024, SMS Performed By: #### L IR1374, NKW8929, KKD2643, HSB0017 ####[address] [address] Monocytes/100 WBC (Bld) 12.2 % Normal 2.1-13.3 [facility] Comment on above: Order Comment: Rodriguez d to and read back by Carson CORONEL Called, at 02:12 on 09/07/2024, SMS Performed By: #### L FM1502, MDO2500, ZVA9242, RRO3553 ####[facility] [address] [address] Neutrophils, Abs. 2.9 10*3/uL Normal 1.5-8.5 [facility] Comment on above: Order Comment: Rodriguez d to and read back by Carson CORONEL Called, at 02:12 on 09/07/2024, SMS Performed By: #### L GB0244, EXT5944, RPJ8306, KFH8838 ####[facility] [address] [address] Neutrophils/100 WBC (Bld) 59.3 % Normal 35.0-66.0 [facility] Comment on above: Order Comment: Rodriguez d to and read back by Carson CORONEL Called, at 02:12 on 09/07/2024, SMS Performed By: #### L KA8746, MDS3552, VRB1174, XFI6645 ####[place] [address] Platelet Cnt 49 10*3/uL Critically low 150-450 [facility] Comment on above: Order Comment: Rodriguez d to and read back by Carson CORONEL Called, at 02:12 on 09/07/2024, SMS Performed By: #### L QC3653, AWV1330, GVV3953, SUR5276 ####[place] [address] Platelet mean volume (Bld) [Entitic vol] 10.4 fL High 6.5-10.0 [facility] Comment on above: Order Comment: Rodriguez d to and read back by Carson CORONEL Called, at 02:12 on 09/07/2024, SMS Performed By: #### L WF6791, VXR6225, GAF5711, WBD0236 ####[place] [address] RBC (Bld) [#/Vol] 3.35 10*6/uL Low 4.00-5.20 [facility] Comment on above: Order Comment: Rodriguez d to and read back by Carson CORONEL Called, at 02:12 on 09/07/2024, SMS Performed By: #### L [id number], [id number], [id number], [id number] ####[facility] [id number] [place] [address] WBC (Bld) [#/Vol] 4.9 10*3/uL Normal 4.5-11.0 [facility] Comment on above: Order Comment: Rodriguez d to and read back by Carson CORONEL Called, at 02:12 on 09/07/2024, SMS Performed By: #### L [id number], [id number], [id number], [id number] ####[place] [address] COMPREHENSIVE METABOLIC PANE [place] 09-07-2024 Albumin [Mass/Vol] 2.4 g/dL Low 3.2-5.0 [facility] Comment on above: Performed By: #### L [id number], [id number], [id number], [id number] ####[place] [address] Albumin/Globulin [Mass ratio] 0.8 {ratio} Normal [facility] Comment on above: Performed By: #### L [id number], [id number], [id number], [id number] ####[place] [address] ALP [Catalytic activity/Vol] 111 U/L Normal 42-121 [facility] [facility] Comment on above: Performed By: #### L YL0425, HLH1904, AMS5333, DOG4189 ####[place] [address] ALT [Catalytic activity/Vol] 82 U/L High 10-60 [facility] Comment on above: Performed By: #### L SU2934, NJV5762, FCS0263, TGP4004 ####[place] [address] Anion gap [Moles/Vol] 4 mmol/L Normal [facility] Comment on above: Performed By: #### L ZI6999, SQV0231, ULQ2768, NVA9361 ####[place] [address] AST [Catalytic activity/Vol] 133 U/L High 10-42 [facility] Comment on above: Performed By: #### L NR8986, RXA9209, TAX1332, UZP9806 ####[place] [address] B/C 13 Normal 10-20 [facility] Comment on above: Performed By: #### L XX5178, KAS3017, SXB3460, AIP8874 ####BABATUNDE [address] [place] [address] Bilirubin.direct [Mass/Vol] 1.2 mg/dL High 0.2-1.0 [facility] Comment on above: Performed By: #### L GB6569, WRE2914, BAZ1084, VHB9689 ####[facility] [address] [place] [address] Calcium [Mass/Vol] 8.4 mg/dL Low 8.5-10.5 [facility] Comment on above: Performed By: #### L LO7703, CFK6645, IXR8841, EAA7603 ####[facility] [address] [place] [address] Chloride [Moles/Vol] 104 mmol/L Normal 101-111 [facility] Comment on above: Performed By: #### L XB1312, GSE4725, KKE2964, FBZ0427 ####[facility] [address] [place] [address] CO2 [Moles/Vol] 26 mmol/L Normal 21-31 [facility] Comment on above: Performed By: #### L OS3224, CKY6001, GLM1775, KTU5923 ####[facility] [address] [place] [address] Creatinine [Mass/Vol] 0.8 mg/dL Normal 0.4-1.0 [facility] Comment on above: Performed By: #### L BO4057, XAC4366, NEY7494, LDK5280 ####[facility] [address] [place] [address] GFR/1.73 sq M.predicted MDRD (S/P/Bld) [Vol rate/Area] 76 mL/min/{1.73_m2} Normal [facility] Comment on above: Result Comment: *The estimated Glomerular Filtration Rate(EGFR) may not be accurate for children under the age of 18 yrs. To estimate the GFR for -Americans multiply the result provided by 1.21.Stage 1 90 mL/min or greaterStage 2 60-89 mL/minStage 3 30-59 mL/minStage 4 15-29 mL/minStage 5 14 mL/min or less Performed By: #### L BT3315, ZZD5695, QNV9163, JRW3595 ####BABATUNDE [address] [address] Glucose [Mass/Vol] 91 mg/dL Normal 70-110 [facility] Comment on above: Performed By: #### L BM6648, MUI4193, ZBF4206, ZUC4020 ####BABATUNDE [address] [address] Osmolality [Osmolality] 267 mosm/kg Normal 266-309 [facility] Comment on above: Performed By: #### L SI5487, DDR2357, QFZ9439, VEM6499 ####BABATUNDE [address] [address] Potassium [Moles/Vol] 4.1 mmol/L Normal 3.6-5.0 [facility] Comment on above: Performed By: #### L FY8396, DKV2763, DCA5346, OIL8841 ####BABATUNDE [address] [address] Protein [Mass/Vol] 5.5 g/dL Low 6.1-7.8 [facility] Comment on above: Performed By: #### L II3402, HBY5675, TXQ3255, MBF2351 ####BABATUNDE [address] [address] Sodium [Moles/Vol] 134 mmol/L Low 135-145 [facility] Comment on above: Performed By: #### L KA7703, RZG1385, DIH1782, QRS0354 ####BABATUNDE [address] [address] Urea nitrogen [Mass/Vol] 10 mg/dL Normal 2-32 [facility] Comment on above: Performed By: #### L AH5642, YFS5687, FAR7161, EBK6360 ####BABATUNDE [address] [address] MAGNESIUMon 09-07-2024 Magnesium [Mass/Vol] 1.6 mg/dL Low 1.7-2.8 [facility] Comment on above: Performed By: #### L IA5487, SOG5478, FYO7079, KOB2524 ####[facility]DMA[facility] [address] [place] [address] SURGICAL CASESon 09-07-2024 SURGICAL CASES Normal [facility] Comment on above: Performed By: #### L NS7766 ####[facility] [address] [place] [address] Upper GI endoscopyon 024 Upper GI endoscopy Normal [facility] AMMONIAon 09-06-2024 Ammonia (P) [Moles/Vol] 62 umol/L High 11- [facility] Comment on above: Performed By: #### L KI1271, KBV4769, IMR8739, CDI4634 ####[place] [place] [address] Albumin, Body Fluidon 2023 Albumin, Body Fluid 420 mg/dL Normal [facility] Comment on above: Order Comment: Ascit es Result Comment: INTE RPRETIVE INFORMATION: Albumin, Body FluidA reference interval has not been established for body fluidspecimens.This test was developed and its performance characteristicsdetermined by [facility]. It has not been cleared orapproved by the U.S. Food and Drug Administration. This test wasperformed in a CLIA-certified laboratory and is intended forclinical purposes.Performed By: [facility] [place] [id number] Director: Elvin Diaz MD, PhDCLIA Number: [id number] Performed By: #### L SM8340, IHG5408, QSJ7035, WUZ6054, DPP8882, AEZ8700 ####[facility]DMA[facility] [address] [place] [address] Source: ascites Normal [facility] Comment on above: Order Comment: Ascit es Result Comment: Coni ected result;Previously reported as ascites, by V/AUT at 15:51 on 09/04/24 Performed By: #### L EN5907, SBL7068, AEY8184, INI0031, GYV4636, THR8404 ####[facility] [address] [place] [address] CBC w/ Differentialon 2023 Basophil Abs. 0.0 10*3/uL Normal 0.0-0.1 [facility] Comment on above: Performed By: #### L OV5122, YUI6757, WJP7165, HXP3459 ####[place] [address] Basophils/100 WBC (Bld) 0.7 % Normal 0.0-1.0 [facility] Comment on above: Performed By: #### L DN5849, IOS5812, JOC5931, SMK9053 ####[place] [address] Differential type Auto Normal [facility] Comment on above: Performed By: #### L TG4610, UHD1459, YXV8066, OMG9104 ####[place] [address] Eosinophils (Bld) [#/Vol] 0.2 10*3/uL Normal 0.0-0.5 [facility] Comment on above: Performed By: #### L MI6494, RXH0192, RFT3650, GJR3597 ####[place] [address] Eosinophils/100 WBC (Bld) 4.5 % Normal 0.3-5.0 [facility] Comment on above: Performed By: #### L LV3107, JNU6269, JRE3945, RVN5127 ####[place] [address] Erythrocyte distribution width (RBC) [Ratio] 16.0 % Normal 10.7-18.7 [facility] Comment on above: Performed By: #### L HW7484, VKB9376, LEW0916, CEX9568 ####[place] [address] Hematocrit (Bld) [Volume fraction] 32.5 % Low 33.0-51.0 [facility] Comment on above: Performed By: #### L HI8772, BWS6140, IRZ1560, LOV1052 ####[address] [address] Hemoglobin (Bld) [Mass/Vol] 11.2 g/dL Low 12.0-16.0 [facility] Comment on above: Performed By: #### L HL2302, QHR8731, KRY3507, ZQH6184 ####BABS[address] [address] Lymphocytes (Bld) [#/Vol] 1.1 10*3/uL Normal 1.1-5.0 [facility] Comment on above: Performed By: #### L JI0892, EFY5475, YQM2731, ATR7487 ####[place] [address] Lymphocytes/100 WBC (Bld) 19.8 % Low 24.0-44.0 [facility] Comment on above: Performed By: #### L SK3617, IQQ3627, EXF4951, PDZ6532 ####[place] [address] MCH (RBC) [Entitic mass] 32.8 pg Normal 26.0-34.0 [facility] Comment on above: Performed By: #### L JO8061, TLA0243, IAR7445, TGX1356 ####[place] [address] MCHC (RBC) [Mass/Vol] 34.4 g/dL Normal 32.0-36.0 [facility] Comment on above: Performed By: #### L PT7591, HRC6628, TJZ9536, QLU5270 ####[place] [address] MCV (RBC) [Entitic vol] 95.4 fL Normal 80.0-100.0 [facility] Comment on above: Performed By: #### L AS1600, VFF5083, JZH7166, EJS9343 ####[place] [address] Monocytes (Bld) [#/Vol] 0.7 10*3/uL Normal 0.0-1.4 [facility] Comment on above: Performed By: #### L PX1083, NGB7584, IVW9517, QGL0992 ####BABS[address] [address] Monocytes/100 WBC (Bld) 12.2 % Normal 2.1-13.3 [facility] Comment on above: Performed By: #### L ZR0002, KKJ5337, UQI9644, MWW2240 ####BABS[address] [address] Neutrophils, Abs. 3.4 10*3/uL Normal 1.5-8.5 [facility] Comment on above: Performed By: #### L SM7126, RFC6735, OTO9467, NCY8747 ####[address]ABS[address] [address] Neutrophils/100 WBC (Bld) 62.8 % Normal 35.0-66.0 [facility] Comment on above: Performed By: #### L JK0029, KRW2726, HNS8488, LWX1116 ####[address]ABS[address] [address] Platelet Cnt 51 10*3/uL Low 150-450 [facility] Comment on above: Performed By: #### L FN1903, MOO0339, VYS5846, DSD0821 ####BABATUNDE [address] [address] Platelet mean volume (Bld) [Entitic vol] 10.7 fL High 6.5-10.0 [facility] Comment on above: Performed By: #### L UY2243, RRK3901, QXT6256, ZCL6728 ####[address]ABS[address] [address] RBC (Bld) [#/Vol] 3.41 10*6/uL Low 4.00-5.20 [facility] Comment on above: Performed By: #### L FB5508, UEX7890, DMX8262, UXC0218 ####BABATUNDE [address] [address] WBC (Bld) [#/Vol] 5.4 10*3/uL Normal 4.5-11.0 [facility] Comment on above: Performed By: #### L LG8882, OZG2192, GBZ2634, SSA8374 ####[place] [address] COMPREHENSIVE METABOLIC PANE Merritt 09-06-2024 Albumin [Mass/Vol] 2.6 g/dL Low 3.2-5.0 [facility] Comment on above: Performed By: #### L TJ6872, FGS0189, XHO0027, DTB1181 ####[place] [address] Albumin/Globulin [Mass ratio] 0.9 {ratio} Normal [facility] Comment on above: Performed By: #### L BV8522, JDI0495, QHW9702, NPF4619 ####[place] [address] ALP [Catalytic activity/Vol] 118 U/L Normal 42-121 [facility] Comment on above: Performed By: #### L ED6792, POG4672, TUL1515, GEG4163 ####[place] [address] ALT [Catalytic activity/Vol] 84 U/L High 10-60 [facility] Comment on above: Performed By: #### L YA0488, IWB8745, WPA8891, LDE9415 ####[place] [address] Anion gap [Moles/Vol] 3 mmol/L Normal [facility] Comment on above: Performed By: #### L DY7363, RDV5801, QPF8302, BVP7801 ####[place] [address] AST [Catalytic activity/Vol] 132 U/L High 10-42 [facility] Comment on above: Performed By: #### L EV6110, NOI3951, VKA8855, PYE2474 ####[place] [address] B/C 8 Low 10-20 [facility] Comment on above: Performed By: #### L AJ4280, GMJ0880, IND8251, WMX3636 ####[facility] [address] [place] [address] Bilirubin.direct [Mass/Vol] 1.5 mg/dL High 0.2-1.0 [facility] Comment on above: Performed By: #### L WR0689, DHU4050, BTI9451, EFG1949 ####[facility] [address] [place] [address] Calcium [Mass/Vol] 8.7 mg/dL Normal 8.5-10.5 [facility] Comment on above: Performed By: #### L CQ1790, SRM4284, HSD6630, RHF5309 ####[facility] [address] [place] [address] Chloride [Moles/Vol] 105 mmol/L Normal 101-111 [facility] Comment on above: Performed By: #### L RJ2066, PUN1979, CFD8719, NSQ3131 ####[facility] [address] [place] [address] CO2 [Moles/Vol] 27 mmol/L Normal 21-31 [facility] Comment on above: Performed By: #### L UP6325, HTM8696, TJM0650, DOG6860 ####[facility] [address] [place] [address] Creatinine [Mass/Vol] 0.9 mg/dL Normal 0.4-1.0 [facility] Comment on above: Performed By: #### L MJ7811, RGM3834, SAB9006, LJH3103 ####[facility] [address] [place] [address] GFR/1.73 sq M.predicted MDRD (S/P/Bld) [Vol rate/Area] 66 mL/min/{1.73_m2} Normal [facility] Comment on above: Result Comment: *The estimated Glomerular Filtration Rate(EGFR) may not be accurate for children under the age of 18 yrs. To estimate the GFR for -Americans multiply the result provided by 1.21.Stage 1 90 mL/min or greaterStage 2 60-89 mL/minStage 3 30-59 mL/minStage 4 15-29 mL/minStage 5 14 mL/min or less Performed By: #### L KV2451, KZZ6546, EXS3234, CKR6735 ####BABATUNDE [address] [address] Glucose [Mass/Vol] 95 mg/dL Normal 70-110 [facility] Comment on above: Performed By: #### L AD0439, SZL6190, EUC4397, UDH8999 ####BABATUNDE [address] [address] Osmolality [Osmolality] 268 mosm/kg Normal 266-309 [facility] Comment on above: Performed By: #### L DJ9733, ZQD8314, ZWY2177, QPE6945 ####BABATUNDE [address] [address] Potassium [Moles/Vol] 4.2 mmol/L Normal 3.6-5.0 [facility] Comment on above: Performed By: #### L LM3551, LON2089, DXQ9053, SPQ7496 ####BABATUNDE [address] [address] Protein [Mass/Vol] 5.6 g/dL Low 6.1-7.8 [facility] Comment on above: Performed By: #### L GH1404, KIK0705, JKF4371, ONL8340 ####BABATUNDE [address] [address] Sodium [Moles/Vol] 135 mmol/L Normal 135-145 [facility] Comment on above: Performed By: #### L WB8083, YDR5259, CGB4792, HUW1266 ####BABATUNDE [address] [address] Urea nitrogen [Mass/Vol] 7 mg/dL Normal 2-32 [facility] Comment on above: Performed By: #### L PA3034, ZJW7180, PXK1668, JLL6743 ####BABATUNDE [address] [address] MAGNESIUMon 09-06-2024 Magnesium [Mass/Vol] 1.5 mg/dL Low 1.7-2.8 [facility] Comment on above: Performed By: #### L AV5574, EAC7553, JVF8833, KLH7673 ####[place] [address] AFP TUMOR MARKER, Son 2023 AFP TUMOR MARKER, S 30.08 ng/mL Abnormal < 6.00 [facility] Comment on above: Order Comment: [id number] Result Comment: * Re ference values are for non- subjects only; production ofAFP elevates values thus alpha-fetoprotein values are not interpretable in females for the investigation of malignant disease. * Values obtained with different assay methods or kits may be differentand cannot be used interchangeably. * Test results cannot be interpreted as absolute evidence for the presenceor absence of malignant disease. Performed By: #### L AJ0421 ####[place] [address] AMMONIAon 09-05-2024 Ammonia (P) [Moles/Vol] 62 umol/L High 11-50 [facility] Comment on above: Performed By: #### L LN0883, IJV4272, BJP5450, SEN5960 ####[place] [address] CBC w/ Differentialon 2023 Basophil Abs. 0.0 10*3/uL Normal 0.0-0.1 [facility] Comment on above: Order Comment: Rodriguez d to and read back by IMU PLT/ AMY B, at 03:19 on 09/05/2024, TB3 Performed By: #### L FK2816, IQS1882, AZQ7455, UYX7373 ####[place] [address] Basophils/100 WBC (Bld) 0.8 % Normal 0.0-1.0 [facility] Comment on above: Order Comment: Rodriguez d to and read back by IMU PLT/ AMY B, at 03:19 on 09/05/2024, TB3 Performed By: #### L LF0696, NJH2122, TAS7225, PLJ0694 ####[place] [address] Differential type Auto Normal [facility] Comment on above: Order Comment: Rodriguez d to and read back by U PLT/ AMY B, at 03:19 on 09/05/2024, TB3 Performed By: #### L TL6906, ETM4725, VRV0111, JGA3948 ####[place] [address] Eosinophils (Bld) [#/Vol] 0.2 10*3/uL Normal 0.0-0.5 [facility] Comment on above: Order Comment: Rodriguez d to and read back by U PLT/ AMY B, at 03:19 on 09/05/2024, TB3 Performed By: #### L CB3049, MTE7641, TIP2391, MYX1686 ####[place] [address] Eosinophils/100 WBC (Bld) 3.0 % Normal 0.3-5.0 [facility] Comment on above: Order Comment: Rodriguez d to and read back by U PLT/ AMY B, at 03:19 on 09/05/2024, TB3 Performed By: #### L KI9883, LXL1956, DZG0351, AKJ1186 ####[place] [address] Erythrocyte distribution width (RBC) [Ratio] 15.9 % Normal 10.7-18.7 [facility] Comment on above: Order Comment: Rodriguez d to and read back by U PLT/ AMY B, at 03:19 on 09/05/2024, TB3 Performed By: #### L FF0858, SMW7831, THF1722, PVV1010 ####[place] [address] Hematocrit (Bld) [Volume fraction] 30.7 % Low 33.0-51.0 [facility] Comment on above: Order Comment: Rodriguez d to and read back by U PLT/ AMY B, at 03:19 on 09/05/2024, TB3 Performed By: #### L BO3822, KJS0190, CQM8522, IQA0332 ####[facility] [address] [place] [address] Hemoglobin (Bld) [Mass/Vol] 10.5 g/dL Low 12.0-16.0 [facility] Comment on above: Order Comment: Rodriguez d to and read back by U PLT/ AMY B, at 03:19 on 09/05/2024, TB3 Performed By: #### L GP4741, ZUL3943, NME1331, EFC5240 ####[place] [address] Lymphocytes (Bld) [#/Vol] 1.0 10*3/uL Low 1.1-5.0 [facility] Comment on above: Order Comment: Rodriguez d to and read back by U PLT/ AMY B, at 03:19 on 09/05/2024, TB3 Performed By: #### L ZS0879, NMH0056, KAW6785, XJV5759 ####[place] [address] Lymphocytes/100 WBC (Bld) 19.6 % Low 24.0-44.0 [facility] Comment on above: Order Comment: Rodriguez d to and read back by U PLT/ AMY B, at 03:19 on 09/05/2024, TB3 Performed By: #### L KR8303, BQU2893, WMM7058, CBF4806 ####[facility] [address] [place] [address] MCH (RBC) [Entitic mass] 32.4 pg Normal 26.0-34.0 [facility] Comment on above: Order Comment: Rodriguez d to and read back by U PLT/ AMY B, at 03:19 on 09/05/2024, TB3 Performed By: #### L LW9053, NDS8898, XNZ7453, TQS1931 ####[place] [address] MCHC (RBC) [Mass/Vol] 34.1 g/dL Normal 32.0-36.0 [facility] Comment on above: Order Comment: Rodriguez d to and read back by U PLT/ AMY B, at 03:19 on 09/05/2024, TB3 Performed By: #### L RJ7575, CJV0678, AYR3326, PIA0288 ####[place] [address] MCV (RBC) [Entitic vol] 94.9 fL Normal 80.0-100.0 [facility] Comment on above: Order Comment: Rodriguez d to and read back by U PLT/ AMY B, at 03:19 on 09/05/2024, TB3 Performed By: #### L JO6279, MLY1111, JVD1297, WET0918 ####[place] [address] Monocytes (Bld) [#/Vol] 0.6 10*3/uL Normal 0.0-1.4 [facility] Comment on above: Order Comment: Rodriguez d to and read back by U PLT/ AMY B, at 03:19 on 09/05/2024, TB3 Performed By: #### L FO8937, FIB7207, DLP1190, PBM5314 ####[place] [address] Monocytes/100 WBC (Bld) 11.9 % Normal 2.1-13.3 [facility] Comment on above: Order Comment: Rodriguez d to and read back by IMU PLT/ AMY B, at 03:19 on 09/05/2024, TB3 Performed By: #### L YF4100, FVU1860, WYO5170, EUF1139 ####[place] [address] Neutrophils, Abs. 3.3 10*3/uL Normal 1.5-8.5 [facility] Comment on above: Order Comment: Rodriguez d to and read back by IMU PLT/ AMY B, at 03:19 on 09/05/2024, TB3 Performed By: #### L HP8352, DGV8327, AMB7302, HRB4732 ####[address] [place] [address] Neutrophils/100 WBC (Bld) 64.7 % Normal 35.0-66.0 [facility] Comment on above: Order Comment: Rodriguez d to and read back by U PLT/ AMY B, at 03:19 on 09/05/2024, TB3 Performed By: #### L DD8607, MBR9098, VFE1128, OQX9755 ####[place] [address] Platelet Cnt 43 10*3/uL Critically low 150-450 [facility] Comment on above: Order Comment: Rodriguez d to and read back by U PLT/ AMY B, at 03:19 on 09/05/2024, TB3 Performed By: #### L WX2300, HQE9579, WCS8627, YGH7141 ####[place] [address] Platelet mean volume (Bld) [Entitic vol] 9.9 fL Normal 6.5-10.0 [facility] Comment on above: Order Comment: Rodriguez d to and read back by U PLT/ AMY B, at 03:19 on 09/05/2024, TB3 Performed By: #### L IC8633, VGT9168, CDZ7643, QPX6817 ####[place] [address] RBC (Bld) [#/Vol] 3.23 10*6/uL Low 4.00-5.20 [facility] Comment on above: Order Comment: Rodriguez d to and read back by U PLT/ AMY B, at 03:19 on 09/05/2024, TB3 Performed By: #### L JO6115, CKX2501, DXV7637, NCI4040 ####BABATUN[address] [address] WBC (Bld) [#/Vol] 5.1 10*3/uL Normal 4.5-11.0 [facility] Comment on above: Order Comment: Nichole connelly to and read back by AICHA DUMONT/ AMY Garcia at 03:19 on 09/05/2024, TB3 Performed By: #### L HB3776, EUY0835, KAH5878, HVE3851 ####[place] [address] COMPREHENSIVE METABOLIC PANE Merritt 09-05-2024 Albumin [Mass/Vol] 2.5 g/dL Low 3.2-5.0 [facility] Comment on above: Performed By: #### L UA7465, HVC1148, TGG9359, XUA6741 ####[place] [address] Albumin/Globulin [Mass ratio] 0.9 {ratio} Normal [facility] Comment on above: Performed By: #### L HN0023, ZJN4572, RQD3644, VDW4302 ####[place] [address] ALP [Catalytic activity/Vol] 106 U/L Normal 42-121 [facility] Comment on above: Performed By: #### L VL4821, JUM0888, FXV8537, TNS0012 ####[place] [address] ALT [Catalytic activity/Vol] 82 U/L High 10-60 [facility] Comment on above: Performed By: #### L NN8725, NFK2454, ULR2743, CHL1518 ####[place] [address] Anion gap [Moles/Vol] 4 mmol/L Normal [facility] Comment on above: Performed By: #### L DA9654, YXS3484, HVJ6491, AFA0732 ####[place] [address] AST [Catalytic activity/Vol] 128 U/L High 10-42 [facility] Comment on above: Performed By: #### L DA0541, RGG0407, IKJ6745, OEW7186 ####[place] [address] B/C 8 Low 10-20 [facility] Comment on above: Performed By: #### L JX4567, MMF4706, ETZ7782, NVI8931 ####[place] [address] Bilirubin.direct [Mass/Vol] 1.4 mg/dL High 0.2-1.0 [facility] Comment on above: Performed By: #### L PO0019, XEG5567, AKL2739, HZM1484 ####[place] [address] Calcium [Mass/Vol] 8.5 mg/dL Normal 8.5-10.5 [facility] Comment on above: Performed By: #### L XH5342, VFM0784, DQF4941, RPZ0926 ####[place] [address] Chloride [Moles/Vol] 104 mmol/L Normal 101-111 [facility] Comment on above: Performed By: #### L ZK5779, EUK4669, AMM4216, HNX1170 ####[place] [address] CO2 [Moles/Vol] 26 mmol/L Normal 21-31 [facility] Comment on above: Performed By: #### L NE4286, ZIV7550, WPL7769, VJR5830 ####[place] [address] Creatinine [Mass/Vol] 0.9 mg/dL Normal 0.4-1.0 [facility] Comment on above: Performed By: #### L TL0853, BIK4738, IKD5988, JPN6058 ####[place] [address] GFR/1.73 sq M.predicted MDRD (S/P/Bld) [Vol rate/Area] 66 mL/min/{1.73_m2} Normal [facility] Comment on above: Result Comment: *The estimated Glomerular Filtration Rate(EGFR) may not be accurate for children under the age of 18 yrs. To estimate the GFR for -Americans multiply the result provided by 1.21.Stage 1 90 mL/min or greaterStage 2 60-89 mL/minStage 3 30-59 mL/minStage 4 15-29 mL/minStage 5 14 mL/min or less Performed By: #### L ZV6363, ZDJ0517, GSR8458, BEV7629 ####BABATUNDE [address] [address] Glucose [Mass/Vol] 132 mg/dL High 70-110 [facility] Comment on above: Performed By: #### L ZY6852, TIN3700, XEJ1198, VRH2741 ####BABATUNDE [address] [address] Osmolality [Osmolality] 268 mosm/kg Normal 266-309 [facility] Comment on above: Performed By: #### L TF2193, JVS1792, WAD1648, USZ0324 ####BABATUNDE [address] [address] Potassium [Moles/Vol] 4.3 mmol/L Normal 3.6-5.0 [facility] Comment on above: Performed By: #### L [id number], MXR2836, LLB6448, VOR6116 ####BABATUNDE [address] [address] Protein [Mass/Vol] 5.3 g/dL Low 6.1-7.8 [facility] Comment on above: Performed By: #### L [id number], XNH3554, RWB3372, ACH2608 ####BABATUNDE [address] [address] Sodium [Moles/Vol] 134 mmol/L Low 135-145 [facility] Comment on above: Performed By: #### L RT7591, WQX2730, GDG9724, VIB9919 ####BABATUNDE [address] [address] Urea nitrogen [Mass/Vol] 7 mg/dL Normal 2-32 [facility] Comment on above: Performed By: #### L [id number], GXO7329, RDO6732, LSS4703 ####[place] [address] MAGNESIUMon 09-05-2024 Magnesium [Mass/Vol] 1.7 mg/dL Normal 1.7-2.8 [facility] Comment on above: Performed By: #### L [id number] ####[place] [address] Magnesium [Mass/Vol] 1.5 mg/dL Low 1.7-2.8 [facility] Comment on above: Performed By: #### L [id number], RCK2924, VHJ2340, JOD1079 ####[place] [address] UA w/ Culture reflexon 09-05 UR BACTERIA Many Abnormal NONE SEEN [facility] Comment on above: Performed By: #### L [id number] ####[place] [address] UR MUCOUS None Seen Normal NONE SEEN [facility] Comment on above: Performed By: #### L [id number] ####[place] [address] UR RBC 1 - 3 Normal 1-3 [facility] Comment on above: Performed By: #### L OI6778 ####[place] [address] UR SQUAMOUS EPI 1 - 3 Normal 3-5 [facility] Comment on above: Performed By: #### L HY1057 ####[place] [address] UR WBC 1 - 3 Normal 1-3 [facility] Comment on above: Performed By: #### L QP5904 ####[place] [address] UR BILIRUBIN Negative Normal NEGATIVE [facility] Comment on above: Performed By: #### L DJ6789 ####[place] [address] UR BLOOD 2 + mg/dL Abnormal NEGATIVE [facility] Comment on above: Performed By: #### L CY0773 ####[place] [address] UR CLARITY Clear Normal CLEAR [facility] Comment on above: Performed By: #### L LT8198 ####[place] [address] UR COLOR Light-Yellow Normal YELLOW [facility] Comment on above: Performed By: #### L LV3487 ####[place] [address] UR GLUCOSE Negative Normal NEGATIVE [facility] Comment on above: Performed By: #### L BW4059 ####[place] [address] UR KETONE Negative Normal NEGATIVE [facility] Comment on above: Performed By: #### L AP8937 ####[place] [address] UR LEUKOCYTE Negative Normal NEGATIVE [facility] Comment on above: Performed By: #### L JE6339 ####[place] [address] UR NITRITE Negative Normal NEGATIVE [facility] Comment on above: Performed By: #### L IN7417 ####[place] [address] UR PH 5.5 Normal 5.0-9.0 [facility] Comment on above: Performed By: #### L TP6766 ####[place] [address] UR PROTEIN Negative Normal NEGATIVE [facility] Comment on above: Performed By: #### L IO5186 ####[place] [address] UR SP GRAVITY 1.005 Normal 1.005-1.030 [facility] Comment on above: Performed By: #### L WA0563 ####[place] [address] UR UROBILINOGEN < 2.0 Normal <2.0 [facility] Comment on above: Performed By: #### L FB8813 ####[place] [address] AMMONIAon 09-04-2024 Ammonia (P) [Moles/Vol] 134 umol/L Critically high 11-50 [facility] Comment on above: Order Comment: Rodriguez d to and read back by willard vuong :plt, at 01:33 on 09/04/2024, KBMCalled to and read back by IMU AMM/ WILLARD Vuong, at 01:49 on 09/04/2024, TB3 Performed By: #### L DO4277, GZW1961, DFI5756, VNM7960 ####[place] [address] CBC w/ Differentialon 2023 Basophil Abs. 0.0 10*3/uL Normal 0.0-0.1 [facility] Comment on above: Performed By: #### L OT5230, JDR1247, NTY8417, ZKU1297 ####[place] [address] Basophils/100 WBC (Bld) 0.8 % Normal 0.0-1.0 [facility] Comment on above: Performed By: #### L FP9465, EGT4943, JQA1814, OCH2590 ####[place] [address] Differential type Auto Normal [facility] Comment on above: Performed By: #### L DL2937, AZO3329, DQN1245, PPB4839 ####[place] [address] Eosinophils (Bld) [#/Vol] 0.2 10*3/uL Normal 0.0-0.5 [facility] Comment on above: Performed By: #### L BD5667, JBK0910, UFI9053, RUX3753 ####[place] [address] Eosinophils/100 WBC (Bld) 4.3 % Normal 0.3-5.0 [facility] Comment on above: Performed By: #### L DH9287, XHA5145, VXH2358, SBC0562 ####[address] [address] Erythrocyte distribution width (RBC) [Ratio] 16.3 % Normal 10.7-18.7 [facility] Comment on above: Performed By: #### L LH7513, ZZM8554, TPR7207, IHS8006 ####[address]ABS[address] [address] Hematocrit (Bld) [Volume fraction] 31.0 % Low 33.0-51.0 [facility] Comment on above: Performed By: #### L RJ8789, BCX9161, HKX8214, CHZ5940 ####[address] [address] Hemoglobin (Bld) [Mass/Vol] 10.5 g/dL Low 12.0-16.0 [facility] Comment on above: Performed By: #### L NT2167, XWF6561, YMO1378, CGO9165 ####[address] [address] Lymphocytes (Bld) [#/Vol] 0.9 10*3/uL Low 1.1-5.0 [facility] Comment on above: Performed By: #### L PC5472, YSN9073, AWT8439, RSY6181 ####[address] [address] Lymphocytes/100 WBC (Bld) 20.0 % Low 24.0-44.0 [facility] Comment on above: Performed By: #### L EF2444, RMV8459, GPO0264, AHS8568 ####[address] [address] MCH (RBC) [Entitic mass] 32.0 pg Normal 26.0-34.0 [facility] Comment on above: Performed By: #### L JV8849, BQA7325, KRP9274, KKD8151 ####[address] [address] MCHC (RBC) [Mass/Vol] 33.8 g/dL Normal 32.0-36.0 [facility] Comment on above: Performed By: #### L QA5500, SKZ5193, PLI8913, XFQ1316 ####[address]AB[address] [address] MCV (RBC) [Entitic vol] 94.8 fL Normal 80.0-100.0 [facility] Comment on above: Performed By: #### L MJ2900, PTN1675, BYQ0956, JGG2244 ####[place] [address] Monocytes (Bld) [#/Vol] 0.6 10*3/uL Normal 0.0-1.4 [facility] Comment on above: Performed By: #### L TS7759, MDC0234, TTT3339, NBI7954 ####BABATUNDE [address] [address] Monocytes/100 WBC (Bld) 12.1 % Normal 2.1-13.3 [facility] Comment on above: Performed By: #### L YB2944, TYT6552, UJM4085, VRC7574 ####[place] [address] Neutrophils, Abs. 2.9 10*3/uL Normal 1.5-8.5 [facility] Comment on above: Performed By: #### L IF0428, MEI4595, ASO9606, SVZ3020 ####[address] [address] Neutrophils/100 WBC (Bld) 62.8 % Normal 35.0-66.0 [facility] Comment on above: Performed By: #### L KX1632, SYJ5663, JCC4069, DTM1221 ####[address] [address] Platelet Cnt 46 10*3/uL Critically low 150-450 [facility] Comment on above: Performed By: #### L ED4306, XGK5109, KNV3782, YGA9730 ####BABSC [facility] [place] [address] Platelet mean volume (Bld) [Entitic vol] 10.0 fL Normal 6.5-10.0 [facility] Comment on above: Performed By: #### L BJ4524, OOF9058, VYU6864, DZI0570 ####[place] [address] RBC (Bld) [#/Vol] 3.27 10*6/uL Low 4.00-5.20 [facility] Comment on above: Performed By: #### L NP8430, EJH2423, YAD4123, HWT4144 ####[place] [address] WBC (Bld) [#/Vol] 4.6 10*3/uL Normal 4.5-11.0 [facility] Comment on above: Performed By: #### L XJ0069, YUY0877, SXN4345, FGO5826 ####[place] [address] COMPREHENSIVE METABOLIC PANE [place] 09-04-2024 Albumin [Mass/Vol] 2.4 g/dL Low 3.2-5.0 [facility] Comment on above: Order Comment: Rodriguez d to and read back by willard Ohplt, at 01:33 on 09/04/2024, KBM Performed By: #### L FN6101, BYE1995, ZCJ9212, EKL4932 ####[place] [address] Albumin/Globulin [Mass ratio] 0.8 {ratio} Normal [facility] Comment on above: Order Comment: Rodriguez d to and read back by willard Ohplt, at 01:33 on 09/04/2024, KBM Performed By: #### L SR1483, IAH5807, LBL8229, FSJ6150 ####[place] [address] ALP [Catalytic activity/Vol] 104 U/L Normal 42-121 [facility] Comment on above: Order Comment: Rodriguez d to and read back by willard Ohplt, at 01:33 on 09/04/2024, KBM Performed By: #### L CY6444, FUM0071, SPE3552, PXS0861 ####[place] [address] ALT [Catalytic activity/Vol] 86 U/L High 10-60 [facility] Comment on above: Order Comment: Rodriguez d to and read back by willard vuong :plt, at 01:33 on 09/04/2024, KBM Performed By: #### L LJ8137, GSK7991, JTB7561, TGC8479 ####[place] [address] Anion gap [Moles/Vol] 5 mmol/L Normal [facility] Comment on above: Order Comment: Rodriguez d to and read back by willard vuong :plt, at 01:33 on 09/04/2024, KBM Performed By: #### L EX2448, FZT1562, DEM9722, XRA0132 ####[place] [address] AST [Catalytic activity/Vol] 140 U/L High 10-42 [facility] Comment on above: Order Comment: Rodriguez d to and read back by willard vuong :plt, at 01:33 on 09/04/2024, KBM Performed By: #### L SE6587, TUZ1595, WSE0019, UHM4905 ####[place] [address] B/C 10 Normal 10-20 [facility] Comment on above: Order Comment: Rodriguez d to and read back by willard s :plt, at 01:33 on 09/04/2024, KBM Performed By: #### L ZO9448, OPT5989, COV5494, LTH4831 ####[place] [address] Bilirubin.direct [Mass/Vol] 1.4 mg/dL High 0.2-1.0 [facility] Comment on above: Order Comment: Rodriguez d to and read back by willard vuong :plt, at 01:33 on 09/04/2024, KBM Performed By: #### L DU4071, CRU0683, TVA9117, IER3494 ####[place] [address] Calcium [Mass/Vol] 8.0 mg/dL Low 8.5-10.5 [facility] Comment on above: Order Comment: Rodriguez d to and read back by willard vuong :plt, at 01:33 on 09/04/2024, KBM Performed By: #### L FM2600, DFS4650, ILP8293, JPB5429 ####[place] [address] Chloride [Moles/Vol] 105 mmol/L Normal 101-111 [facility] Comment on above: Order Comment: Rodriguez d to and read back by willard vuong :plt, at 01:33 on 09/04/2024, KBM Performed By: #### L TB0721, NDS5693, ICW5776, UBZ2143 ####[place] [address] CO2 [Moles/Vol] 24 mmol/L Normal 21-31 [facility] Comment on above: Order Comment: Rodriguez d to and read back by willard s :plt, at 01:33 on 09/04/2024, KBM Performed By: #### L WW9667, HUN8545, AZR7476, UGY8219 ####[place] [address] Creatinine [Mass/Vol] 0.8 mg/dL Normal 0.4-1.0 [facility] Comment on above: Order Comment: Rodriguez d to and read back by willard s :plt, at 01:33 on 09/04/2024, KBM Performed By: #### L XR4278, XJU4427, VRL6335, IAQ3245 ####[place] [id number] GFR/1.73 sq M.predicted MDRD (S/P/Bld) [Vol rate/Area] 76 mL/min/{1.73_m2} Normal [facility] Comment on above: Order Comment: Rodriguez d to and read back by willard s :plt, at 01:33 on 09/04/2024, KBM Result Comment: *The estimated Glomerular Filtration Rate(EGFR) may not be accurate for children under the age of 18 yrs. To estimate the GFR for -Americans multiply the result provided by 1.21.Stage 1 90 mL/min or greaterStage 2 60-89 mL/minStage 3 30-59 mL/minStage 4 15-29 mL/minStage 5 14 mL/min or less Performed By: #### L SP8909, RUE4014, TIP9445, NRA6130 ####BABATUNDE [address] [place] [address] Glucose [Mass/Vol] 146 mg/dL High 70-110 [facility] Comment on above: Order Comment: Rodriguez d to and read back by willard Ohplt, at 01:33 on 09/04/2024, KBM Performed By: #### L FQ4240, WCT3483, KFO4542, LOL5647 ####[place] [address] Osmolality [Osmolality] 269 mosm/kg Normal 266-309 [facility] Comment on above: Order Comment: Rodriguez d to and read back by willard Ohplt, at 01:33 on 09/04/2024, KBM Performed By: #### L DZ7363, JEV5755, JQS9353, FQC0490 ####BABATUNDE [address] [address] Potassium [Moles/Vol] 3.8 mmol/L Normal 3.6-5.0 [facility] Comment on above: Order Comment: Rodriguez d to and read back by willard vuong :plt, at 01:33 on 09/04/2024, KBM Performed By: #### L ZH5543, QAC0198, RQR9125, SAX1072 ####[address] [address] Protein [Mass/Vol] 5.3 g/dL Low 6.1-7.8 [facility] Comment on above: Order Comment: Rodriguez d to and read back by willard Ohplt, at 01:33 on 09/04/2024, KBM Performed By: #### L XJ3660, BVM3525, PFZ3415, EYQ5068 ####[facility] [address] [place] [address] Sodium [Moles/Vol] 134 mmol/L Low 135-145 [facility] Comment on above: Order Comment: Rodriguez d to and read back by willard Ohplt, at 01:33 on 09/04/2024, KBM Performed By: #### L LV7943, LXA1831, JMB1391, TTY2419 ####[facility] [address] [place] [address] Urea nitrogen [Mass/Vol] 8 mg/dL Normal 2-32 [facility] Comment on above: Order Comment: Rodriguez d to and read back by willard Ohplt, at 01:33 on 09/04/2024, KBM Performed By: #### L PZ3479, TZV3475, PSE9559, CYK6217 ####[facility] [place] [address] [place] ABDOMEN and PELVIS-NO CON TRASTon 09-04-2024 CT ABDOMEN and PELVIS-NO CONTRAST Normal [facility] FLUID CELL COUNTon 4 Character (U) Hazy Normal [facility] Comment on above: Order Comment: Ascit es Performed By: #### L LD5357, NWM4698, KSY6904, FVX8275, ARD6025, ZRM3138 ####[place] [address] [place] [address] Color (U) Yellow Normal [facility] Comment on above: Order Comment: Ascit es Performed By: #### L WI7082, HJE5260, CWF4329, OBR8166, RMM5544, JIU0058 ####[facility] [address] [place] [address] FLD COMMENT see below Normal [facility] Comment on above: Order Comment: Ascit es Result Comment: Refe rence ranges & other method performance specifications have not beenestablished for this body fluid type. The test result must be integratedinto the clinical context for interpretation. Performed By: #### L XX6008, SYW2874, MPH7704, UYG8503, YFV2613, YXZ8517 ####[facility] [address] [place] [address] RBC 229 uL [facility] Comment on above: Order Comment: Ascit es Performed By: #### L JA3769, TYF4592, SKL4067, YJE5426, EVQ6133, LHH7537 ####[facility] [address] [place] [address] SOURCE Ascites [facility] Comment on above: Order Comment: Ascit es Performed By: #### L TL2048, VQP5994, NHA7435, WAI1621, CFB2509, DCW3254 ####[place] [address] TOTAL NUC. CELLS 134 uL [facility] Comment on above: Order Comment: Ascit es Result Comment: RESU LTS OF COUNT MAY BE INACCURATE IF SPECIMEN IS PARTIALLYCLOTTED OR EXHIBIT CELL CLUMPING. Performed By: #### L AN2864, BKE2808, MWI1046, ATJ1767, PKI1352, XPM0990 ####[place] [address] TUBE NUMBER Syringe [facility] Comment on above: Order Comment: Ascit es Performed By: #### L AQ7381, ZUE9513, LES6573, PQD6845, CDO0224, SPQ9452 ####[place] [address] VOLUME 61.0 [facility] Comment on above: Order Comment: Ascit es Performed By: #### L EN9161, LJP8835, VEY4445, GEV2787, WHP0648, CGS3608 ####[place] [address] FLUID CULTUREon 09-04-2024 FLUID CULTURE Bacteria identified in Body fluid by Culture FLUID CULTURE: No Growth - Preliminary Microscopic observation [Identifier] in Specimen by Gram stain GRAM STAIN SMEAR: No WBC'S. No organisms seen. [facility] Comment on above: Performed By: #### L LQ3629 ####[place] [address] GLUCOSE, FLUIDon 09-04-2024 GLUCOSE, FLUID 134 mg/dL Normal [facility] Comment on above: Order Comment: Ascit es Result Comment: Refe rence ranges & other method performance specifications have not beenestablished for this body fluid type. The test result must be integratedinto the clinical context for interpretation. Performed By: #### L VS5787, YTH6761, DEE3229, WUM4202, OLU7507, REZ5178 ####[place] [address] LDH, FLUIDon 09-04-2024 LDH FLUID 37 [iU]/L Low 60-160 [facility] Comment on above: Order Comment: Ascit es Performed By: #### L GH3396, CTU9266, OPZ2670, TAC9763, DHU6170, TME6797 ####[place] [address] MAGNESIUMon 09-04-2024 Magnesium [Mass/Vol] 1.7 mg/dL Normal 1.7-2.8 [facility] Comment on above: Performed By: #### L TZ5602 ####[place] [address] Magnesium [Mass/Vol] 1.5 mg/dL Low 1.7-2.8 [facility] Comment on above: Order Comment: Rodriguez d to and read back by willard lai, at 01:33 on 09/04/2024, KBM Performed By: #### L UA4847, KWU4947, LXS8877, PJJ0754 ####[facility] [address] [place] [address] NON HOME CHILD CARE PROVIDER CASESon 09-04-2024 NON HOME CHILD CARE PROVIDER CASES Normal [facility] Comment on above: Performed By: #### L WI7030 ####[place] [address] PH, FLUIDon 09-04-2024 PH, FLUID 7.5 Normal [facility] Comment on above: Order Comment: Ascit es Performed By: #### L ID6593, BWB5654, BZC8013, ACJ7827, PJI8075, APQ7406 ####[place] [id number] [place] [address] PT INRon 09-04-2024 INR Coag (PPP) [Relative time] 1.6 {INR} High 0.9-1.1 [facility] Comment on above: Result Comment: CORRIE Luciano OF THERAPY INDICATIONS TARGET INR RANGESTANDARD DOSE TREATMENT OF VENOUS THROMBOSIS 2.0-3.0 TREATMENT OF PULMONARY EMBOLUS PROPHYLAXIS AGAINST VENOUS THROMBOSIS BY SYSTEMIC EMBOLIZATION .HIGH DOSE HIGH RISK PATIENTS WITH 2.5-3.5 MECHANICAL HEART VALVES Performed By: #### L DM8131 ####[place] [address] PT Coag (PPP) [Time] 18.6 s High 10.1-13.7 [facility] Comment on above: Performed By: #### L UM3037 ####[place] [address] Protein, Fluidon 09-04-2024 Protein, Fluid < 3.0 Normal [facility] Comment on above: Order Comment: Ascit es Performed By: #### L OP2489, EKM8742, WJD8274, VSQ6398, GPL6820, AEI9875 ####BABAT[place] [address] [place] [address] SOURCE ascites Normal [facility] Comment on above: Order Comment: Ascit es Performed By: #### L PP0859, SJG2785, UNB6705, DZV4499, LWI9399, GTP1650 ####[place] [address] VASCULAR PROCEDUREon 024 VASCULAR PROCEDURE Normal [facility] AMMONIAon 09-03-2024 Ammonia (P) [Moles/Vol] 122 umol/L Critically high 11-50 [facility] Comment on above: Order Comment: Rodriguez d to and read back by AICHA IRVING/ WILLARD Vuong at 02:13 on 09/03/2024, TB3 Performed By: #### L AF2363, NUD5687, KTB3730, ELE2939 ####[place] [address] CBC w/ Differentialon 2023 Basophil Abs. 0.0 10*3/uL Normal 0.0-0.1 [facility] Comment on above: Performed By: #### L KV7166, MJT3709, GWU0469, ZGX7543 ####[address] [address] Basophils/100 WBC (Bld) 0.8 % Normal 0.0-1.0 [facility] Comment on above: Performed By: #### L DI3866, TNP4941, NFK1187, LHW5501 ####[place] [address] Differential type Auto Normal [facility] Comment on above: Performed By: #### L AQ7636, DQO5885, ZKO5515, IIW3832 ####[place] [address] Eosinophils (Bld) [#/Vol] 0.2 10*3/uL Normal 0.0-0.5 [facility] Comment on above: Performed By: #### L PC2025, XML9488, DEO4873, WOX3180 ####[place] [address] Eosinophils/100 WBC (Bld) 4.1 % Normal 0.3-5.0 [facility] Comment on above: Performed By: #### L SU0639, DGC1555, YLW8248, KNJ4781 ####[place] [address] Erythrocyte distribution width (RBC) [Ratio] 16.5 % Normal 10.7-18.7 [facility] Comment on above: Performed By: #### L XX1255, CDD5135, FFT7033, TNH6148 ####[place] [address] Hematocrit (Bld) [Volume fraction] 30.9 % Low 33.0-51.0 [facility] Comment on above: Performed By: #### L MF2979, SLA4966, ZIL3540, DVK8834 ####[facility] [address] [place] [address] Hemoglobin (Bld) [Mass/Vol] 10.5 g/dL Low 12.0-16.0 [facility] Comment on above: Performed By: #### L TK6573, ZGJ2837, SBE6251, ZKY6099 ####[place] [address] Lymphocytes (Bld) [#/Vol] 1.1 10*3/uL Normal 1.1-5.0 [facility] Comment on above: Performed By: #### L OX9668, LNT6129, IMD2547, MDG0399 ####[place] [address] Lymphocytes/100 WBC (Bld) 24.9 % Normal 24.0-44.0 [facility] Comment on above: Performed By: #### L SD1601, QZI4797, VFY3729, GBH1207 ####[place] [address] MCH (RBC) [Entitic mass] 32.2 pg Normal 26.0-34.0 [facility] Comment on above: Performed By: #### L AQ7548, UHE6174, GEV4844, LOV7227 ####[place] [address] MCHC (RBC) [Mass/Vol] 33.8 g/dL Normal 32.0-36.0 [facility] Comment on above: Performed By: #### L US3698, QXL9157, DMR4292, XUD4628 ####[place] [address] MCV (RBC) [Entitic vol] 95.3 fL Normal 80.0-100.0 [facility] Comment on above: Performed By: #### L KF4517, EBF4870, BHE8938, VRN9547 ####[place] [address] Monocytes (Bld) [#/Vol] 0.5 10*3/uL Normal 0.0-1.4 [facility] Comment on above: Performed By: #### L YY4107, IUX6997, OQI0872, NGE1847 ####[address] [address] Monocytes/100 WBC (Bld) 10.7 % Normal 2.1-13.3 [facility] Comment on above: Performed By: #### L ST3998, BVY4638, ULS7431, YDT7432 ####[address] [address] Neutrophils, Abs. 2.7 10*3/uL Normal 1.5-8.5 [facility] Comment on above: Performed By: #### L YM4978, IUS8072, MWS8525, LUM3416 ####[address] [address] Neutrophils/100 WBC (Bld) 59.5 % Normal 35.0-66.0 [facility] Comment on above: Performed By: #### L AD0363, JNZ5047, TDP2895, ZBM8980 ####[address] [address] Platelet Cnt 53 10*3/uL Low 150-450 [facility] Comment on above: Performed By: #### L ZY6333, HRR8446, JEW6753, UXF3911 ####[address] [address] Platelet mean volume (Bld) [Entitic vol] 10.4 fL High 6.5-10.0 [facility] Comment on above: Performed By: #### L LD9809, KJU6171, GAZ5302, ZBY3881 ####[address] [address] RBC (Bld) [#/Vol] 3.24 10*6/uL Low 4.00-5.20 [facility] Comment on above: Performed By: #### L LC4740, POK0726, FOQ2022, YLI2182 ####[address] [address] WBC (Bld) [#/Vol] 4.5 10*3/uL Normal 4.5-11.0 [facility] Comment on above: Performed By: #### L WU6252, UEZ8299, KEM5083, RRO9733 ####[place] [address] COMPREHENSIVE METABOLIC PANE [place] 09-03-2024 Albumin [Mass/Vol] 2.3 g/dL Low 3.2-5.0 [facility] Comment on above: Performed By: #### L TB8342, ROM6043, IIZ9351, EAY7378 ####[place] [address] Albumin/Globulin [Mass ratio] 0.8 {ratio} Normal [facility] Comment on above: Performed By: #### L TP0000, JSA8530, FPJ1547, CMS0776 ####[place] [address] ALP [Catalytic activity/Vol] 110 U/L Normal 42-121 [facility] Comment on above: Performed By: #### L ZA4346, SRI3270, GMH8843, XTT3376 ####[place] [address] ALT [Catalytic activity/Vol] 78 U/L High 10-60 [facility] Comment on above: Performed By: #### L TF2630, MZZ5267, PUM6376, ELO5641 ####[place] [address] Anion gap [Moles/Vol] 3 mmol/L Normal [facility] Comment on above: Performed By: #### L KQ7726, ZZZ1040, QON5302, YKR3233 ####[place] [address] AST [Catalytic activity/Vol] 126 U/L High 10-42 [facility] Comment on above: Performed By: #### L RE3903, LSZ1303, BBB5336, WNT3294 ####[place] [address] B/C 9 Low 10-20 [facility] Comment on above: Performed By: #### L MX3635, KIE7063, NRU0190, VBY6406 ####[facility] [address] [place] [address] Bilirubin.direct [Mass/Vol] 1.5 mg/dL High 0.2-1.0 [facility] Comment on above: Performed By: #### L AL3746, SSU2035, DCG2785, WOL1142 ####[facility] [address] [place] [address] Calcium [Mass/Vol] 8.3 mg/dL Low 8.5-10.5 [facility] Comment on above: Performed By: #### L CT3635, OIR0071, SXU5145, TFV3171 ####[facility] [address] [place] [address] Chloride [Moles/Vol] 111 mmol/L Normal 101-111 [facility] Comment on above: Performed By: #### L EG3506, SZT0462, JGW8690, FSK8153 ####[facility] [address] [place] [address] CO2 [Moles/Vol] 22 mmol/L Normal 21-31 [facility] Comment on above: Performed By: #### L NH8041, GFN2001, OKP2541, SCI0912 ####[facility] [address] [place] [address] Creatinine [Mass/Vol] 1.0 mg/dL Normal 0.4-1.0 [facility] Comment on above: Performed By: #### L [id number], SVC0208, HVJ7002, [id number] ####[facility] [id number] [place] [id number] GFR/1.73 sq M.predicted MDRD (S/P/Bld) [Vol rate/Area] 58 mL/min/{1.73_m2} Normal [facility] Comment on above: Result Comment: *The estimated Glomerular Filtration Rate(EGFR) may not be accurate for children under the age of 18 yrs. To estimate the GFR for -Americans multiply the result provided by 1.21.Stage 1 90 mL/min or greaterStage 2 60-89 mL/minStage 3 30-59 mL/minStage 4 15-29 mL/minStage 5 14 mL/min or less Performed By: #### L [id number], [id number], [id number], [id number] ####[facility] [address] [address] Glucose [Mass/Vol] 138 mg/dL High 70-110 [facility] Comment on above: Performed By: #### L [id number], [id number], GTX2946, OLK1770 ####[facility] [address] [address] Osmolality [Osmolality] 273 mosm/kg Normal 266-309 [facility] Comment on above: Performed By: #### L YP8289, PJN1014, HGO0635, XFX0477 ####[facility] [address] [address] Potassium [Moles/Vol] 3.9 mmol/L Normal 3.6-5.0 [facility] Comment on above: Performed By: #### L MY7273, SHC4268, MES0966, PDC9929 ####BABATUNDE [address] [address] Protein [Mass/Vol] 5.2 g/dL Low 6.1-7.8 [facility] Comment on above: Performed By: #### L RS8672, UYX4305, ITR2568, RRD5871 ####BABATUNDE [address] [address] Sodium [Moles/Vol] 136 mmol/L Normal 135-145 [facility] Comment on above: Performed By: #### L OX7786, ORP8840, NUF8300, NZV7470 ####BABATUNDE [address] [address] Urea nitrogen [Mass/Vol] 9 mg/dL Normal 2-32 [facility] Comment on above: Performed By: #### L PO2071, QDI0770, IHP9870, LOO0058 ####BABATUNDE [address] [address] GLUCOSE, GLUCOMETERon 2023 Glucose [Mass/Vol] 119 mg/dL High 70-110 [facility] Comment on above: Performed By: #### L JI7590 ####BABS[address] [address] MAGNESIUMon 09-03-2024 Magnesium [Mass/Vol] 1.9 mg/dL Normal 1.7-2.8 [facility] Comment on above: Performed By: #### L SA0768 ####BABS[address] [address] Magnesium [Mass/Vol] 1.5 mg/dL Low 1.7-2.8 [facility] Comment on above: Performed By: #### L SM6288, FKE3859, IGW0837, MTJ9813 ####BABATUNDE [address] [address] CBC w/ Differentialon 2023 Basophil Abs. 0.0 10*3/uL Normal 0.0-0.1 [facility] Comment on above: Performed By: #### L ZF4826, NRV8166, OBO6842 ####[place] [address] Basophils/100 WBC (Bld) 0.8 % Normal 0.0-1.0 [facility] Comment on above: Performed By: #### L TL6065, YTH5263, LQD0969 ####[place] [address] Differential type Auto Normal [facility] Comment on above: Performed By: #### L CD4117, BQM3448, PYN5980 ####[address]AB[address] [address] Eosinophils (Bld) [#/Vol] 0.2 10*3/uL Normal 0.0-0.5 [facility] Comment on above: Performed By: #### L OW9742, NLB1325, VAX2080 ####[place] [id number] Eosinophils/100 WBC (Bld) 3.7 % Normal 0.3-5.0 [facility] Comment on above: Performed By: #### L QC4784, DXQ9686, QFA0851 ####BABATUNDE [address] [address] Erythrocyte distribution width (RBC) [Ratio] 16.4 % Normal 10.7-18.7 [facility] Comment on above: Performed By: #### L PX3326, AMN4540, GWM1917 ####[place] [address] Hematocrit (Bld) [Volume fraction] 32.9 % Low 33.0-51.0 [facility] Comment on above: Performed By: #### L GC1476, SFD2605, UYD9693 ####[place] [address] Hemoglobin (Bld) [Mass/Vol] 11.2 g/dL Low 12.0-16.0 [facility] Comment on above: Performed By: #### L RZ6833, ZAX5505, RML7821 ####[place] [address] Lymphocytes (Bld) [#/Vol] 1.3 10*3/uL Normal 1.1-5.0 [facility] Comment on above: Performed By: #### L KN6402, XLS9848, PZP8700 ####[address]AB[address] [address] Lymphocytes/100 WBC (Bld) 22.4 % Low 24.0-44.0 [facility] Comment on above: Performed By: #### L ME0283, XEG2497, ZZD2486 ####[place] [address] MCH (RBC) [Entitic mass] 32.2 pg Normal 26.0-34.0 [facility] Comment on above: Performed By: #### L JE4807, WIA8036, AUW8261 ####BABATUNDE [address] [address] MCHC (RBC) [Mass/Vol] 34.2 g/dL Normal 32.0-36.0 [facility] Comment on above: Performed By: #### L UY1016, EHN5202, HSK6431 ####[address]ABS[address] [address] MCV (RBC) [Entitic vol] 94.3 fL Normal 80.0-100.0 [facility] Comment on above: Performed By: #### L HE5209, OVO3748, QXZ6753 ####[place] [address] Monocytes (Bld) [#/Vol] 0.6 10*3/uL Normal 0.0-1.4 [facility] Comment on above: Performed By: #### L QF3583, CRA4545, IXJ6588 ####BABATUNDE [address] [address] Monocytes/100 WBC (Bld) 9.7 % Normal 2.1-13.3 [facility] Comment on above: Performed By: #### L RB2598, WGB9933, WNQ0634 ####[place] [address] Neutrophils, Abs. 3.8 10*3/uL Normal 1.5-8.5 [facility] Comment on above: Performed By: #### L DO2572, BCY3713, DRA9916 ####[place] [address] Neutrophils/100 WBC (Bld) 63.4 % Normal 35.0-66.0 [facility] Comment on above: Performed By: #### L WO8693, DCG8425, EIL1257 ####[address]AB[address] [address] Platelet Cnt 59 10*3/uL Low 150-450 [facility] Comment on above: Performed By: #### L DW4558, WSU8804, MMJ9073 ####[address]ABS[address] [address] Platelet mean volume (Bld) [Entitic vol] 10.0 fL Normal 6.5-10.0 [facility] Comment on above: Performed By: #### L QY1414, CTP4214, IQW7919 ####[place] [address] RBC (Bld) [#/Vol] 3.49 10*6/uL Low 4.00-5.20 [facility] Comment on above: Performed By: #### L SF7195, JSX3104, KUH5562 ####[place] [address] WBC (Bld) [#/Vol] 6.0 10*3/uL Normal 4.5-11.0 [facility] Comment on above: Performed By: #### L SK0370, SLQ4871, EJN4353 ####[place] [address] COMPREHENSIVE METABOLIC PANE [place] 09-02-2024 Albumin [Mass/Vol] 2.6 g/dL Low 3.2-5.0 [facility] Comment on above: Performed By: #### L SE6766, YXX3385, KRV9538 ####[place] [address] Albumin/Globulin [Mass ratio] 0.9 {ratio} Normal [facility] Comment on above: Performed By: #### L VA9218, OVV4194, MLK1755 ####[place] [address] ALP [Catalytic activity/Vol] 113 U/L Normal 42-121 [facility] Comment on above: Performed By: #### L QK9298, HJG0425, VSI7136 ####BABATUNDE Beason [address] [place] [address] ALT [Catalytic activity/Vol] 87 U/L High 10-60 [facility] Comment on above: Performed By: #### L OF7303, UMW4657, ZDI1685 ####[place] [address] Anion gap [Moles/Vol] 5 mmol/L Normal [facility] Comment on above: Performed By: #### L BB1181, UEI3932, IXS7779 ####[place] [address] AST [Catalytic activity/Vol] 130 U/L High 10-42 [facility] Comment on above: Performed By: #### L DI8313, LFW6057, FHU6900 ####[place] [address] B/C 10 Normal 10-20 [facility] Comment on above: Performed By: #### L LM1589, MPX6710, NBK5703 ####[place] [address] Bilirubin.direct [Mass/Vol] 1.4 mg/dL High 0.2-1.0 [facility] Comment on above: Performed By: #### L RR6801, ADL0091, FZU3348 ####[place] [address] Calcium [Mass/Vol] 8.1 mg/dL Low 8.5-10.5 [facility] Comment on above: Performed By: #### L QG0078, LHP7687, CIE5223 ####[place] [address] Chloride [Moles/Vol] 111 mmol/L Normal 101-111 [facility] Comment on above: Performed By: #### L DA8882, RGL2692, YKA3120 ####[place] [address] CO2 [Moles/Vol] 21 mmol/L Normal 21-31 [facility] Comment on above: Performed By: #### L AZ0380, UML2178, OVL1370 ####[place] [address] Creatinine [Mass/Vol] 0.9 mg/dL Normal 0.4-1.0 [facility] Comment on above: Performed By: #### L ZQ7784, ELX4242, ZQP7580 ####BABATUNDE Beason [address] [place] [address] GFR/1.73 sq M.predicted MDRD (S/P/Bld) [Vol rate/Area] 66 mL/min/{1.73_m2} Normal [facility] Comment on above: Result Comment: *The estimated Glomerular Filtration Rate(EGFR) may not be accurate for children under the age of 18 yrs. To estimate the GFR for -Americans multiply the result provided by 1.21.Stage 1 90 mL/min or greaterStage 2 60-89 mL/minStage 3 30-59 mL/minStage 4 15-29 mL/minStage 5 14 mL/min or less Performed By: #### L CD3128, FRY1841, PHW7337 ####BABATUNDE [address] [address] Glucose [Mass/Vol] 89 mg/dL Normal 70-110 [facility] Comment on above: Performed By: #### L CF4827, TNS9984, VJU7370 ####BABATUNDE [address] [address] Osmolality [Osmolality] 272 mosm/kg Normal 266-309 [facility] Comment on above: Performed By: #### L MM7554, BMY1908, OCF5926 ####BABATUNDE [address] [address] Potassium [Moles/Vol] 3.8 mmol/L Normal 3.6-5.0 [facility] Comment on above: Performed By: #### L EU3469, EEM7851, HWD4627 ####BABATUNDE [address] [address] Protein [Mass/Vol] 5.6 g/dL Low 6.1-7.8 [facility] Comment on above: Performed By: #### L SN5001, VQC9368, YZN3824 ####BABATUNDE [address] [address] Sodium [Moles/Vol] 137 mmol/L Normal 135-145 [facility] Comment on above: Performed By: #### L ZO4206, DGJ2300, KJQ3212 ####BABATUNDE [address] [address] Urea nitrogen [Mass/Vol] 9 mg/dL Normal 2-32 [facility] Comment on above: Performed By: #### L YV6010, ZSD9520, KSK0420 ####[address] [address] FREE T4on 09-02-2024 Free T4 [Mass/Vol] 0.69 ng/dL Low 0.70-1.70 [facility] Comment on above: Result Comment: Pau hernandez 05/18/19, Free T4 assays can have false high results when theconcentration of biotin in the patient sample is 10 ng/mL or greater. Performed By: #### L VF5542, SKS8724, FZK8506, ZHM1770 ####[address]AB[address] [address] HEMOGLOBIN A1Con 09-02-2024 HbA1c (Bld) [Mass fraction] 4.0 % Normal 3.0-6.0 [facility] Comment on above: Performed By: #### L CG1980, HQC7846, UGY5939, MYE3491 ####[facility] [address] [place] [address] LIPID PANELon 09-02-2024 Cholesterol [Mass/Vol] 89 mg/dL Normal 10-200 [facility] Comment on above: Performed By: #### L TI4968, HCZ8557, DWJ1819, IIA4960 ####BABATUNDE [address] [address] Cholesterol in HDL [Mass/Vol] 38.0 mg/dL Normal 29.0-89.0 [facility] Comment on above: Performed By: #### L IN1970, SWF0653, DZN1642, LNF5938 ####[facility] [address] [place] [address] Cholesterol in LDL [Mass/Vol] 42.0 mg/dL Normal [facility] Comment on above: Result Comment: CAP STANDARDIZED LDL-CHOLESTEROL VALUES <130-DESIRABLE 130-159 BORDERLINE/HIGH RISK >160-HIGH RISK Performed By: #### L RO3155, KFK2306, SML3766, NAL3794 ####[facility]DMAled[facility] [address] [place] [address] Cholesterol in VLDL [Mass/Vol] 9.0 mg/dL Normal [facility] Comment on above: Performed By: #### L HL3968, VWH1191, PMK6598, CCJ0884 ####BABATUNDE Beason [address] [place] [address] RISK 1, FEMALE 2.34 Normal [facility] Comment on above: Result Comment: TOTA L CHOL/HDL 1/2 AVERAGE 3.27 AVERAGE 4.44 2 X AVERAGE 7.05 3 X AVERAGE 11.04 Performed By: #### L NM7390, RAE7716, UXR2098, UFU7962 ####BABATUNDE Beason [address] [place] [address] RISK 1, MALE 2.34 Normal [facility] Comment on above: Result Comment: TOTA L CHOL/HDL 1/2 AVERAGE 3.43 AVERAGE 4.97 2 X AVERAGE 9.55 3 X AVERAGE 23.39 Performed By: #### L EJ7760, ECX2875, DYR7059, IZV8965 ####[place] [address] RISK 2, FEMALE 1.11 Normal [facility] Comment on above: Result Comment: LDL/ HDL 1/2 AVERAGE 1.47 AVERAGE 3.22 2 X AVERAGE 5.03 3 X AVERAGE 6.14 Performed By: #### L ES2596, PUK8158, UGD7886, AYA5127 ####BABATUNDE Beason [address] [place] [address] RISK 2, MALE 1.11 [facility] Comment on above: Result Comment: LDL/ HDL 1/2 AVERAGE 1.00 AVERAGE 3.55 2 X AVERAGE 6.25 3 X AVERAGE 7.99 Performed By: #### L UO6808, QPY3669, BXW4632, KXM2907 ####BABATUNDE Beason [address] [place] [address] Triglyceride [Mass/Vol] 45 mg/dL Low 46-236 [facility] Comment on above: Performed By: #### L CP8576, TXL1518, SCN7174, BTT0756 ####[facility] [place] [address] [place] [id number] MAGNESIUMon 09-02-2024 Magnesium [Mass/Vol] 1.8 mg/dL Normal 1.7-2.8 [facility] Comment on above: Performed By: #### L ID1679, IRI8028, HOS1454 ####[facility] [address] [place] [address] TSHon 09-02-2024 TSH Qn 2.02 m[IU]/L Normal 0.30-5.60 [facility] Comment on above: Performed By: #### L MB1715, JSA6539, QCI8392, YLP4882 ####[place] [address] XR LUMBAR SPINE AP AND LATER Ale 09-02-2024 XR LUMBAR SPINE AP AND LATERAL Normal [facility] AMMONIAon 09-01-2024 Ammonia (P) [Moles/Vol] 56 umol/L High 11-50 [facility] Comment on above: Performed By: #### L XD4937, NPW4033, ISB0510, WGT3513, CDA3092, SAM0986, DSL2076, CCV8207 ####[place] [id number] [place] [address] BNPon 09-01-2024 Natriuretic peptide B (Bld) [Mass/Vol] 67.0 pg/mL Normal 1.0-100.0 [facility] Comment on above: Result Comment: The BNP test should not be used as absolute evidence of CHF.Elevated BNP blood concentrations may be found in heartattack patients and renal dialysis patients. Performed By: #### L OB3130, DEC9563, GFU0325, OVE1999, WIN5548, QNW7458, LRJ6805, FYD7897 ####[facility] [address] [place] [id number] CBC w/ Differentialon 2023 Basophil Abs. 0.0 10*3/uL Normal 0.0-0.1 [facility] Comment on above: Performed By: #### L SS0578, LTH5760, WDV7360, XKY9217, QPO7537, PUM7600, LDB9741, YSV7246 ####[place] [address] Basophils/100 WBC (Bld) 0.4 % Normal 0.0-1.0 [facility] Comment on above: Performed By: #### L NX8343, PBL5670, KJH0144, PPE2785, MZV5695, NMQ4007, ZCE6613, NFC9159 ####[place] [address] Differential type Auto Normal [facility] Comment on above: Performed By: #### L MP1236, VDS7536, ZCW2443, DRW5436, RCJ6148, NXH2277, VKW5110, LPE1353 ####[place] [address] Eosinophils (Bld) [#/Vol] 0.2 10*3/uL Normal 0.0-0.5 [facility] Comment on above: Performed By: #### L KY0125, JUY2177, OUN0927, WKR9105, NNC3662, NEE0600, JIS6285, MNX1082 ####[place] [address] Eosinophils/100 WBC (Bld) 2.9 % Normal 0.3-5.0 [facility] Comment on above: Performed By: #### L AD5881, SVH8493, RNE4782, MTZ5184, YFT3141, ZST8218, ROE8637, QKM0780 ####[place] [address] Erythrocyte distribution width (RBC) [Ratio] 16.5 % Normal 10.7-18.7 [facility] Comment on above: Performed By: #### L YN7864, KYE2476, JJN1549, JGU4118, QAB1535, DHS2768, FDV5644, HSH4545 ####[place] [address] Hematocrit (Bld) [Volume fraction] 36.3 % Normal 33.0-51.0 [facility] Comment on above: Performed By: #### L KM1900, VNO7451, UTK6503, FUW2579, YOS1614, IDB4285, MRC3736, VPM0176 ####[place] [address] Hemoglobin (Bld) [Mass/Vol] 12.5 g/dL Normal 12.0-16.0 [facility] Comment on above: Performed By: #### L WN1722, YUY6951, UBB4333, RBO5042, VJC3526, DRB5353, KAW1217, ZNM8316 ####[place] [address] Lymphocytes (Bld) [#/Vol] 1.0 10*3/uL Low 1.1-5.0 [facility] Comment on above: Performed By: #### L AC8253, LXP4862, SFL1157, LZV9506, OTS5401, BJR1755, HHW7372, QBA1732 ####[place] [address] Lymphocytes/100 WBC (Bld) 15.9 % Low 24.0-44.0 [facility] Comment on above: Performed By: #### L ED7498, ZKR9751, SVT0563, SWL1743, RMU3236, CJN8307, PFW9250, LBM3888 ####[place] [address] MCH (RBC) [Entitic mass] 32.7 pg Normal 26.0-34.0 [facility] Comment on above: Performed By: #### L FH2554, YVF4267, HUL1599, FFS0133, VLV9573, NZV0740, ZVD2946, PHC6435 ####[place] [address] MCHC (RBC) [Mass/Vol] 34.5 g/dL Normal 32.0-36.0 [facility] Comment on above: Performed By: #### L EF3483, JHC8512, JRX8224, PHD2363, ICG1642, ZUM0654, IYY9965, SIB6085 ####[place] [address] MCV (RBC) [Entitic vol] 94.9 fL Normal 80.0-100.0 [facility] Comment on above: Performed By: #### L RM3900, FPO5805, YYE5143, THY2616, EYS0912, SFI7694, VGZ8026, HBY3335 ####[place] [address] MDW 17.7 Normal 0.0-20.0 [facility] Comment on above: Performed By: #### L FT3290, LVY3916, TOZ0974, JFT5281, OWS8082, LIC3197, ART8709, IIZ4758 ####[place] [address] Monocytes (Bld) [#/Vol] 0.7 10*3/uL Normal 0.0-1.4 [facility] Comment on above: Performed By: #### L VW4220, CSS1538, DHU4250, HVS7859, PFI0460, TMA7581, VUL7419, JNS7201 ####[place] [address] Monocytes/100 WBC (Bld) 11.3 % Normal 2.1-13.3 [facility] Comment on above: Performed By: #### L WH8106, NUH9058, RJG3713, LOD6822, UCI7264, ZAB7693, OGB0286, UDU8134 ####[place] [address] Neutrophils, Abs. 4.5 10*3/uL Normal 1.5-8.5 [facility] Comment on above: Performed By: #### L EH9570, RSB6555, XRR5255, TNG9971, KFU8137, LIJ8278, GDL1475, JAP6653 ####[place] [address] Neutrophils/100 WBC (Bld) 69.5 % High 35.0-66.0 [facility] Comment on above: Performed By: #### L DP9597, SKJ5721, ZLM0456, VBV9872, HKX1564, YHO8738, TGC4583, KGS2976 ####[place] [address] Platelet Cnt 60 10*3/uL Low 150-450 [facility] Comment on above: Performed By: #### L GA9188, ZPP5544, OHG9744, FCY9836, OVQ2219, IFA4273, OBE7415, TOD9435 ####[place] [address] Platelet mean volume (Bld) [Entitic vol] 9.7 fL Normal 6.5-10.0 [facility] Comment on above: Performed By: #### L KQ4515, TLU6472, NAV1094, AYH3044, LSQ6184, KDI0600, IRT8504, CGX4099 ####[place] [address] RBC (Bld) [#/Vol] 3.82 10*6/uL Low 4.00-5.20 [facility] Comment on above: Performed By: #### L MC5614, UKJ6054, PJO2767, NHT1987, KKZ3017, NOC1776, LRM3661, FED2188 ####[place] [address] WBC (Bld) [#/Vol] 6.4 10*3/uL Normal 4.5-11.0 [facility] Comment on above: Performed By: #### L CZ3573, DKG2598, VPO7072, XJE4486, FRU6570, EFY1922, AGK0578, VVL5257 ####[place] [address] COMPREHENSIVE METABOLIC PANE [place] 09-01-2024 Albumin [Mass/Vol] 2.7 g/dL Low 3.2-5.0 [facility] Comment on above: Performed By: #### L BY5803, JNJ1906, FWZ1494, QWH3141, XVW2895, YPJ9313, SJL7804, GTL6463 ####[address] [address] Albumin/Globulin [Mass ratio] 0.8 {ratio} Normal [facility] Comment on above: Performed By: #### L EF5436, JIN9545, EJH9365, LYE3579, EWX4715, PFB3657, EUD8311, GUW6703 ####[address] [address] ALP [Catalytic activity/Vol] 125 U/L High 42-121 [facility] Comment on above: Performed By: #### L PR5557, TUU9842, ZPH7798, DJD6707, AHJ6899, NHL9634, MIC3778, VYN1841 ####[address] [address] ALT [Catalytic activity/Vol] 93 U/L High 10-60 [facility] Comment on above: Performed By: #### L NV7266, MRG8057, JFJ0070, RCR8468, FJY2351, MFH6663, VYV8186, YXQ2601 ####[address] [address] Anion gap [Moles/Vol] 4 mmol/L Normal [facility] Comment on above: Performed By: #### L SR3716, WEU2920, JKH2971, ONW0323, DMP0634, IRE7816, BGI1190, YZG1534 ####[address] [address] AST [Catalytic activity/Vol] 137 U/L High 10-42 [facility] Comment on above: Performed By: #### L OC9171, ENO4003, WZJ2695, CLX3991, YNE5752, ZOX0955, PSP8426, CIW2160 ####[address] [address] B/C 9 Low 10-20 [facility] Comment on above: Performed By: #### L QT1587, EMY3828, DOK0777, VXA9644, LFD5180, YTY4143, UVY1642, TWQ3164 ####[place] [address] Bilirubin.direct [Mass/Vol] 1.7 mg/dL High 0.2-1.0 [facility] Comment on above: Performed By: #### L QM7763, EQS8862, ETE7228, JLD2500, IVL3353, KDR6344, UWY5696, ODL7187 ####[place] [address] Calcium [Mass/Vol] 8.2 mg/dL Low 8.5-10.5 [facility] Comment on above: Performed By: #### L NT8694, REG9496, LRT9112, JAL2659, QST6075, GNW6985, BZN5070, HVM4130 ####[place] [address] Chloride [Moles/Vol] 111 mmol/L Normal 101-111 [facility] Comment on above: Performed By: #### L YL9935, VTQ2891, VWM4634, NRN1427, YEF2940, NDS2235, ACQ5279, OAF1742 ####[place] [address] CO2 [Moles/Vol] 22 mmol/L Normal 21-31 [facility] Comment on above: Performed By: #### L KW8920, GBK4299, SPI5952, GJQ0366, YVX0234, WBY1833, RJM0425, SPV6603 ####[place] [address] Creatinine [Mass/Vol] 1.0 mg/dL Normal 0.4-1.0 [facility] Comment on above: Performed By: #### L SK5568, VJU6411, UPL7653, POC9504, UQW7233, UOI6607, YXE3746, UPW5844 ####[place] [address] GFR/1.73 sq M.predicted MDRD (S/P/Bld) [Vol rate/Area] 58 mL/min/{1.73_m2} Normal [facility] Comment on above: Result Comment: *The estimated Glomerular Filtration Rate(EGFR) may not be accurate for children under the age of 18 yrs. To estimate the GFR for -Americans multiply the result provided by 1.21.Stage 1 90 mL/min or greaterStage 2 60-89 mL/minStage 3 30-59 mL/minStage 4 15-29 mL/minStage 5 14 mL/min or less Performed By: #### L GD8753, NPF9182, EVS1242, IUB9681, CBT7457, IVQ3680, ZIX0727, NWN9360 ####[address] [address] Glucose [Mass/Vol] 98 mg/dL Normal 70-110 [facility] Comment on above: Performed By: #### L TM4538, NQP0654, XTH4940, UIF7799, GHX8106, YOX0815, ITM9695, HVW5748 ####[address] [address] Osmolality [Osmolality] 272 mosm/kg Normal 266-309 [facility] Comment on above: Performed By: #### L QN4987, SYZ2297, JVH1737, GUQ0129, XLG4444, VRK8072, FEP8911, AAT3954 ####[address] [address] Potassium [Moles/Vol] 3.9 mmol/L Normal 3.6-5.0 [facility] Comment on above: Performed By: #### L ZE8728, ZGS4331, VDK5145, LIR1496, FCN7608, EDQ2430, RDU9180, CPP6755 ####[address] [address] Protein [Mass/Vol] 6.1 g/dL Normal 6.1-7.8 [facility] Comment on above: Performed By: #### L PL8894, NEC0614, QTM1128, XVF5308, ZYF0117, KUS8350, DWQ5920, BNC3666 ####[address] [address] Sodium [Moles/Vol] 137 mmol/L Normal 135-145 [facility] Comment on above: Performed By: #### L PE7095, UKO0689, CDL1695, VZS1176, VXW5729, LRE0152, RES3399, POS8785 ####[place] [address] Urea nitrogen [Mass/Vol] 9 mg/dL Normal 2-32 [facility] Comment on above: Performed By: #### L SA4599, WDT8973, CER1374, MQM3867, VRL1240, PHU1707, AVQ0202, IHZ4486 ####[place] [address] LACTIC ACIDon 09-01-2024 Lactate [Moles/Vol] 1.5 mmol/L Normal 0.5-1.9 [facility] Comment on above: Performed By: #### L CI3130, SPH5165, TIP8595, PZV8769, STU1933, NGR5091, VQF5091, IYR0110 ####[place] [address] LIPASEon 09-01-2024 Lipase [Catalytic activity/Vol] 42 U/L Normal 11-82 [facility] Comment on above: Performed By: #### L XE0885, FMI2643, LGL3555, VHW4927, XTO1150, MBL1582, PGW4011, BGS6634 ####[place] [address] PROCALCITONIN, Son 4 PROCALCITONIN, S 0.10 ng/mL Normal [facility] Comment on above: Result Comment: . <0 .05 ng/mL Healthy individuals. <0.50 ng/mL Systemic infection (sepsis) is not likely. 0.50 - 2.00 ng/mL Systemic infection (sepsis) is possible, but other conditions are known to induce PCT as well. 2.00 - 10.00 ng/mL Systemic infection (sepsis) is likely, unless other causes are known. >=10.00 ng/mL Important systemic inflammatory response, almost exclusively due to severe bacterial sepsis or septic shock. Performed By: #### L HR1512, AKX6517, QNY5629, ADS9836, IQF6813, SLG4307, TWH8510, AZT4955 ####[id number] [place] [address] PT AND APTTon 09-01-2024 aPTT Coag (Bld) [Time] 39.5 s High 25.5-35.9 [facility] Comment on above: Performed By: #### L LX2447, RCK6686, QRE9171, SDF8133, WKF3551, LRT1588, HAU2578, ZKK8343 ####[facility] [address] [place] [address] INR Coag (PPP) [Relative time] 1.6 {INR} High 0.9-1.1 [facility] Comment on above: Result Comment: CORRIE Luciano OF THERAPY INDICATIONS TARGET INR RANGESTANDARD DOSE TREATMENT OF VENOUS THROMBOSIS 2.0-3.0 TREATMENT OF PULMONARY EMBOLUS PROPHYLAXIS AGAINST VENOUS THROMBOSIS BY SYSTEMIC EMBOLIZATION .HIGH DOSE HIGH RISK PATIENTS WITH 2.5-3.5 MECHANICAL HEART VALVES Performed By: #### L AE6742, ABL9671, ECV3007, BIP0169, GQC9215, ZYO4214, FDL6346, EUH7167 ####[place] [address] PT Coag (PPP) [Time] 18.5 s High 10.1-13.7 [facility] Comment on above: Performed By: #### L AJ6357, MKE7968, DNR5611, BTI0352, DVY0659, DZH4084, OBX9021, VMF6159 ####[place] [address] XR PORTABLE CHESTon 09-01-20 24 XR PORTABLE CHEST Normal [facility] Vascular Procedureon 024 [facility] Radiology Study observation (narrative) [facility] VASCULAR PROCEDUREon VASCULAR PROCEDURE Normal [facility] VASCULAR PROCEDURE Normal [facility] Vascular Procedureon 024 : Technically successful ultrasound-guided therapeutic paracentesis with aspiration of 2550 cc of cloudy yellow fluid. SIGNED: Ginger Milton MD 08/16/2024 3:32 PM [facility] INTERVENTIONAL RADIOLOGY REPORT PATIENT: Carolina Hightower DATE OF : 1975 PROCEDURE: Ultrasound-guided therapeutic paracentesis. INDICATION: Symptomatic ascites. COMPLICATIONS: none SEDATION: none TECHNIQUE: Potential risk and benefits were discussed with and informed consent was obtained. The patient was brought to the angiography lab and placed in a supine position. Sonographic evaluation of the abdomen demonstrated a moderate amount of free peritoneal fluid. Sonographic images were obtained and saved to the patient's chart. Skin site on the right abdomen was marked. The area was prepped and draped in a sterile fashion with local anesthesia provided using 1% buffered lidocaine. A 6.5 Swedish non-locking Resolve pigtail catheter was advanced into the peritoneal space. 2550 cc of cloudy yellow fluid were obtained. The catheter was removed intact. A dry sterile dressing was applied to the puncture site. The patient tolerated the procedure well and there were no immediate complications. The patient was given no IV albumin. FINDINGS: Moderate amount of free peritoneal fluid/ascites. [facility] Radiology Study observation (narrative) [facility] V[facility] PROCED[facility] 024 VASCULAR PROCEDURE Normal [facility] VASCULAR PROCEDUREon 024 VASCULAR PROCEDURE Normal [facility] CBC w/ Differentialon 2023 Basophil Abs. 0.1 10*3/uL Normal 0.0-0.1 [facility] Comment on above: Performed By: #### L EB4492, MQB7771, JYG1739 ####[place] [address] Basophils/100 WBC (Bld) 1.0 % Normal 0.0-1.0 [facility] Comment on above: Performed By: #### L BP3660, MFW0018, KXN6258 ####[place] [address] Differential type Auto Normal [facility] Comment on above: Performed By: #### L SZ9957, NHV5705, GKC5638 ####BABATUNDE [address] [address] Eosinophils (Bld) [#/Vol] 0.2 10*3/uL Normal 0.0-0.5 [facility] Comment on above: Performed By: #### L LV1258, JUI1749, RLV5198 ####[place] [address] Eosinophils/100 WBC (Bld) 4.0 % Normal 0.3-5.0 [facility] Comment on above: Performed By: #### L YX6276, VSA2512, JBF6146 ####[place] [address] Erythrocyte distribution width (RBC) [Ratio] 17.7 % Normal 10.7-18.7 [facility] Comment on above: Performed By: #### L UN8060, JTO9382, GXG9469 ####[place] [address] Hematocrit (Bld) [Volume fraction] 32.6 % Low 33.0-51.0 [facility] Comment on above: Performed By: #### L IB2335, EYL0401, BYA0814 ####[place] [address] Hemoglobin (Bld) [Mass/Vol] 11.4 g/dL Low 12.0-16.0 [facility] Comment on above: Performed By: #### L GZ3484, PJO9948, FRW1893 ####[place] [address] Lymphocytes (Bld) [#/Vol] 1.0 10*3/uL Low 1.1-5.0 [facility] Comment on above: Performed By: #### L IF5173, IIA7847, AMM3500 ####[place] [address] Lymphocytes/100 WBC (Bld) 15.7 % Low 24.0-44.0 [facility] Comment on above: Performed By: #### L TE8395, SJU1279, GMO1151 ####[place] [address] MCH (RBC) [Entitic mass] 33.3 pg Normal 26.0-34.0 [facility] Comment on above: Performed By: #### L HD2079, NQY1415, JSZ4071 ####[place] [address] MCHC (RBC) [Mass/Vol] 35.1 g/dL Normal 32.0-36.0 [facility] Comment on above: Performed By: #### L NR5569, LPP9604, CJZ0577 ####[place] [address] MCV (RBC) [Entitic vol] 95.0 fL Normal 80.0-100.0 [facility] Comment on above: Performed By: #### L EP6971, UKP2735, AXI2178 ####[place] [address] MDW 20.0 Normal 0.0-20.0 [facility] Comment on above: Performed By: #### L RQ5999, FXN2798, NOZ6042 ####[place] [address] Monocytes (Bld) [#/Vol] 0.6 10*3/uL Normal 0.0-1.4 [facility] Comment on above: Performed By: #### L WL2729, VZV6768, WCL3516 ####[place] [address] Monocytes/100 WBC (Bld) 10.3 % Normal 2.1-13.3 [facility] Comment on above: Performed By: #### L XP2183, FSZ3841, SYK3614 ####[place] [address] Neutrophils, Abs. 4.3 10*3/uL Normal 1.5-8.5 [facility] Comment on above: Performed By: #### L XP9005, CUC9511, WGE4933 ####[place] [address] Neutrophils/100 WBC (Bld) 69.0 % High 35.0-66.0 [facility] Comment on above: Performed By: #### L FD5330, LSS7201, KHB0959 ####[place] [address] Platelet Cnt 65 10*3/uL Low 150-450 [facility] Comment on above: Performed By: #### L GL4434, RMD4452, KYX3024 ####[place] [address] Platelet mean volume (Bld) [Entitic vol] 9.9 fL Normal 6.5-10.0 [facility] Comment on above: Performed By: #### L FB4963, HVZ8184, BDD1726 ####[place] [address] RBC (Bld) [#/Vol] 3.43 10*6/uL Low 4.00-5.20 [facility] Comment on above: Performed By: #### L AA4626, COX5789, QCN8276 ####[place] [address] WBC (Bld) [#/Vol] 6.3 10*3/uL Normal 4.5-11.0 [facility] Comment on above: Performed By: #### L JH8670, PCV6991, OQE4840 ####[place] [address] CBC w/Differentialon 024 Basophils (Bld) [#/Vol] 0.1 10*3/uL 0.0 - 0.1 10*3/uL [facility] Basophils/100 WBC (Bld) 1.0 % 0.0 - 1.0 % [facility] Differential cell count method Nom (Bld) Auto [facility] Eosinophils (Bld) [#/Vol] 0.2 10*3/uL 0.0 - 0.5 10*3/uL [facility] Eosinophils/100 WBC (Bld) 4.0 % 0.3 - 5.0 % [facility] Erythrocyte distribution width (RBC) [Ratio] 17.7 % 10.7 - 18.7 % [facility] Hematocrit (Bld) [Volume fraction] 32.6 % Low 33.0 - 51.0 % [facility] Hemoglobin (Bld) [Mass/Vol] 11.4 g/dL Low 12.0 - 16.0 g/dL [facility] Interpretation and review of laboratory results Abnormal [facility] Lymphocytes (Bld) [#/Vol] 1.0 10*3/uL Low 1.1 - 5.0 10*3/uL [facility] Lymphocytes/100 WBC (Bld) 15.7 % Low 24.0 - 44.0 % [facility] MCH (RBC) [Entitic mass] 33.3 pg 26.0 - 34.0 pg [facility] MCHC (RBC) [Mass/Vol] 35.1 g/dL 32.0 - 36.0 g/dL [facility] MCV (RBC) [Entitic vol] 95.0 fL 80.0 - 100.0 fL [facility] Monocyte distribution width Auto (Bld) [Entitic vol] 20.0 0.0 - 20.0 [facility] Monocytes (Bld) [#/Vol] 0.6 10*3/uL 0.0 - 1.4 10*3/uL [facility] Monocytes/100 WBC (Bld) 10.3 % 2.1 - 13.3 % [facility] Neutrophils (Bld) [#/Vol] 4.3 10*3/uL 1.5 - 8.5 10*3/uL [facility] Neutrophils/100 WBC (Bld) 69.0 % High 35.0 - 66.0 % [facility] Platelet mean volume (Bld) [Entitic vol] 9.9 fL 6.5 - 10.0 fL [facility] Platelets (Bld) [#/Vol] 65 10*3/uL Low 150 - 450 10*3/uL [facility] RBC (Bld) [#/Vol] 3.43 10*6/uL Low 4.00 - 5.2 0 10*6/uL [facility] WBC (Bld) [#/Vol] 6.3 10*3/uL 4.5 - 11.0 10*3/uL [facility] COMPREHENSIVE METABOLIC PANE [place] 07-26-2024 Albumin [Mass/Vol] 2.9 g/dL Low 3.2-5.0 [facility] Comment on above: Performed By: #### L RC4674, CUY1082, ZIM5361 ####[place] [address] Albumin/Globulin [Mass ratio] 0.7 {ratio} Normal [facility] Comment on above: Performed By: #### L BG0454, IFQ6583, CLI2160 ####[place] [address] ALP [Catalytic activity/Vol] 123 U/L High 42-121 [facility] Comment on above: Performed By: #### L ZQ3973, RIL8425, VOX4370 ####[place] [address] ALT [Catalytic activity/Vol] 65 U/L High 10-60 [facility] Comment on above: Performed By: #### L UY4060, EON2270, IYU9419 ####[place] [address] Anion gap [Moles/Vol] 2 mmol/L Normal [facility] Comment on above: Performed By: #### L VS1720, BSN4627, BAA4389 ####[place] [address] AST [Catalytic activity/Vol] 125 U/L High 10-42 [facility] Comment on above: Performed By: #### L JW7737, DMU0231, QGI8607 ####[place] [address] B/C 12 Normal 10-20 [facility] Comment on above: Performed By: #### L PJ6006, SCH9855, TSW9320 ####[place] [address] Bilirubin.direct [Mass/Vol] 1.6 mg/dL High 0.2-1.0 [facility] Comment on above: Performed By: #### L MU3755, WVW1514, SPJ9159 ####[address] [address] Calcium [Mass/Vol] 8.7 mg/dL Normal 8.5-10.5 [facility] Comment on above: Performed By: #### L XJ9494, EQT4358, QNP6567 ####[address] [address] Chloride [Moles/Vol] 109 mmol/L Normal 101-111 [facility] Comment on above: Performed By: #### L DS2992, VPI1532, MEO6930 ####[address] [address] CO2 [Moles/Vol] 24 mmol/L Normal 21-31 [facility] Comment on above: Performed By: #### L XX0811, WFJ9828, JNQ2717 ####[place] [address] Creatinine [Mass/Vol] 0.9 mg/dL Normal 0.4-1.0 [facility] Comment on above: Performed By: #### L MO6098, GKZ9371, QHM9557 ####[address] [address] GFR/1.73 sq M.predicted MDRD (S/P/Bld) [Vol rate/Area] 66 mL/min/{1.73_m2} Normal [facility] Comment on above: Result Comment: *The estimated Glomerular Filtration Rate(EGFR) may not be accurate for children under the age of 18 yrs. To estimate the GFR for -Americans multiply the result provided by 1.21.Stage 1 90 mL/min or greaterStage 2 60-89 mL/minStage 3 30-59 mL/minStage 4 15-29 mL/minStage 5 14 mL/min or less Performed By: #### L QZ7848, GFQ4441, KZI7218 ####[place] [address] Glucose [Mass/Vol] 98 mg/dL Normal 70-110 [facility] Comment on above: Performed By: #### L RA4105, LPV0786, ICU8963 ####BABATUNDE [address] [address] Osmolality [Osmolality] 269 mosm/kg Normal 266-309 [facility] Comment on above: Performed By: #### L IB8972, CCN3549, CFN7162 ####BABATUNDE [address] [address] Potassium [Moles/Vol] 4.6 mmol/L Normal 3.6-5.0 [facility] Comment on above: Performed By: #### L II3723, EXO7085, HHA7395 ####BABATUNDE [address] [address] Protein [Mass/Vol] 6.8 g/dL Normal 6.1-7.8 [facility] Comment on above: Performed By: #### L WC3375, OVZ0938, FAD0940 ####BABATUNDE [address] [address] Sodium [Moles/Vol] 135 mmol/L Normal 135-145 [facility] Comment on above: Performed By: #### L UV6296, FYD9321, LAV6048 ####[place] [address] Urea nitrogen [Mass/Vol] 11 mg/dL Normal 2-32 [facility] Comment on above: Performed By: #### L HY6756, RBI0608, SXC6901 ####[place] [address] Comprehensive Metabolic Pane merritt 07-26-2024 Albumin [Mass/Vol] 2.9 g/dL Low 3.2 - 5.0 g/dL [facility] Albumin/Globulin [Mass ratio] 0.7 {ratio} [facility] ALP [Catalytic activity/Vol] 123 U/L High 42 - 121 [iU]/L [facility] ALT [Catalytic activity/Vol] 65 U/L High 10 - 60 [iU]/L [facility] Anion gap [Moles/Vol] 2 mmol/L [facility] AST [Catalytic activity/Vol] 125 U/L High 10 - 42 [iU]/L [facility] Bilirubin [Mass/Vol] 1.6 mg/dL High 0.2 - 1 .0 mg/dL [facility] Calcium [Mass/Vol] 8.7 mg/dL 8.5 - 10. 5 mg/dL [facility] Chloride [Moles/Vol] 109 mmol/L 101 - 1 11 mmol/L [facility] CO2 [Moles/Vol] 24 mmol/L 21 - 31 mmol/L [facility] Creatinine [Mass/Vol] 0.9 mg/dL 0.4 - 1.0 mg/dL [facility] GFR/1.73 sq M.predicted MDRD (S/P/Bld) [Vol rate/Area] 66 mL/min/{1.73_m2} [facility] Comment on above: *The estimated Glome rular Filtration Rate(EGFR) may not be accurate for children under the age of 18 yrs. To estimate the GFR for -Americans multiply the result provided by 1.21. Stage 1 90 mL/min or greater Stage 2 60-89 mL/min Stage 3 30-59 mL/min Stage 4 15-29 mL/min Stage 5 14 mL/min or less Glucose [Mass/Vol] 98 mg/dL 70 - 110 mg/dL [facility] Interpretation and review of laboratory results Abnormal [facility] Osmolality Calc [Osmolality] 269 266 - 309 [facility] Potassium [Moles/Vol] 4.6 mmol/L 3.6 - 5.0 mmol/L [facility] Protein [Mass/Vol] 6.8 g/dL 6.1 - 7.8 g/dL [facility] Sodium [Moles/Vol] 135 mmol/L 135 - 145 mmol/L [facility] Urea nitrogen [Mass/Vol] 11 mg/dL 2 - 32 mg/dL [facility] Urea nitrogen/Creatinine [Mass ratio] 12 mg/mg [facility] PT AND APTTon 07-26-2024 aPTT Coag (Bld) [Time] 38.0 s High 25.5-35.9 [facility] Comment on above: Performed By: #### L YS5246, CMZ3364, HVO5031 ####[facility] [address] [place] [address] INR Coag (PPP) [Relative time] 1.4 {INR} High 0.9-1.1 [facility] Comment on above: LEVEL OF THERAPY IND ICATIONS TARGET INR RANGE STANDARD DOSE TREATMENT OF VENOUS THROMBOSIS 2.0-3.0 TREATMENT OF PULMONARY EMBOLUS PROPHYLAXIS AGAINST VENOUS THROMBOSIS BY SYSTEMIC EMBOLIZATION . HIGH DOSE HIGH RISK PATIENTS WITH 2.5-3.5 MECHANICAL HEART VALVES Result Comment: CORRIE L OF THERAPY INDICATIONS TARGET INR RANGESTANDARD DOSE TREATMENT OF VENOUS THROMBOSIS 2.0-3.0 TREATMENT OF PULMONARY EMBOLUS PROPHYLAXIS AGAINST VENOUS THROMBOSIS BY SYSTEMIC EMBOLIZATION .HIGH DOSE HIGH RISK PATIENTS WITH 2.5-3.5 MECHANICAL HEART VALVES Performed By: #### L WQ3435, AND7932, SEB1001 ####BABATUNDE [address] [place] [address] PT Coag (PPP) [Time] 16.9 s High 10.1-13.7 [facility] Comment on above: Performed By: #### L TQ8244, KIP7462, JGO4031 ####[facility] [address] [place] [address] PT/APTT/INRon 07-26-2024 aPTT Coag (PPP) [Time] 38.0 s High 25.5 - 35.9 s [facility] Interpretation and review of laboratory results Abnormal [facility] VASCULAR PROCEDUREon VASCULAR PROCEDURE Normal [facility] VASCULAR PROCEDURE Normal [facility] Vascular ProcedureOrdered By : Max Rico on 07-26-2024 [facility] Work Phone: Vascular Procedureon 024 Radiology Study observation (narrative) [facility] VASCULAR PROCEDUREon VASCULAR PROCEDURE Normal [facility] FLUID CELL COUNTon 4 Basophils/100 WBC (Bld) 0 % Normal [facility] Comment on above: Performed By: #### L FK1391, KVW7723, HZV2325, MAY0672, AYN4723, EYV6950 ####[facility] [address] [address] Eosinophils/100 WBC (Bld) 0 % [facility] Comment on above: Performed By: #### L YA2046, MWW4408, DYZ4748, TDT0853, HWP9183, AWQ1890 ####[address] [address] Lymphocytes/100 WBC (Bld) 63 % [facility] Comment on above: Performed By: #### L JQ0319, CMO5714, LVF9176, KGE8294, AFQ0537, SHP2072 ####[address] [address] MACROPHAGES 10 % [facility] Comment on above: Performed By: #### L PD1490, BHQ1721, BYH2550, TOE0929, HXN6460, HDU7855 ####[address] [address] MESOTHELIAL 25 % [facility] Comment on above: Performed By: #### L SH7624, XLW0301, REE7134, MVT3219, MUS6319, OFL1423 ####[address] [address] Neutrophils/100 WBC (Bld) 2 % [facility] Comment on above: Performed By: #### L TI5677, JDD9616, VJB4476, ZLQ7658, VQX5246, YYI3364 ####[place] [id number] PATHOLOGY REVIEW dmp [facility] Comment on above: Result Comment: Soo pearl with manual differential. Aurora Amos DO 07/12/2024 22:59 Performed By: #### L AO5898, BTB2191, RXI2011, JGL8062, EWO8054, DRN6795 ####[place] [address] PLASMA CELLS 0 % Normal [facility] Comment on above: Performed By: #### L IO3626, PLT6140, WWD8701, HRL5380, EGX7897, DBR2241 ####[place] [address] OTHER 0 Normal [facility] Comment on above: Performed By: #### L BF8557, EWS7646, QWU3346, VGJ1689, CWU3678, GTY2894 ####[place] [address] Albumin, Body Fluidon 2023 Albumin, Body Fluid 474 mg/dL Normal [facility] Comment on above: Result Comment: INTE RPRETIVE INFORMATION: Albumin, Body FluidA reference interval has not been established for body fluidspecimens.This test was developed and its performance characteristicsdetermined by [facility]. It has not been cleared orapproved by the U.S. Food and Drug Administration. This test wasperformed in a CLIA-certified laboratory and is intended forclinical purposes.Performed By: [facility] [place] [id number] Director: Elvin Diaz MD, PhDCLIA Number: [id number] Performed By: #### L UK2533, OPH2607, LEJ2368, RGX5622, DTF1263, BSE0687 ####[facility] [place] [address] Source: ascites Normal [facility] Comment on above: Result Comment: Coni ected result;Previously reported as ascites, by V/AUT at 09:20 on 07/09/24 Performed By: #### L GD2847, LOE7092, VWT5221, GSN7394, ADV2267, SVH4160 ####[place] [address] CBC w/ Differentialon 2023 Basophil Abs. 0.0 10*3/uL Normal 0.0-0.1 [facility] Comment on above: Performed By: #### L PW2352, EQY7694 ####[place] [address] Basophils/100 WBC (Bld) 0.7 % Normal 0.0-1.0 [facility] Comment on above: Performed By: #### L UT5748, SWA9831 ####[place] [address] Differential type Auto Normal [facility] Comment on above: Performed By: #### L XE4381, PHG6238 ####[place] [address] Eosinophils (Bld) [#/Vol] 0.2 10*3/uL Normal 0.0-0.5 [facility] Comment on above: Performed By: #### L BJ3437, OLM1925 ####[place] [address] Eosinophils/100 WBC (Bld) 4.7 % Normal 0.3-5.0 [facility] Comment on above: Performed By: #### L NN6510, DYD5531 ####[place] [address] Erythrocyte distribution width (RBC) [Ratio] 17.6 % Normal 10.7-18.7 [facility] Comment on above: Performed By: #### L SZ3608, BTZ6721 ####[place] [address] Hematocrit (Bld) [Volume fraction] 29.4 % Low 33.0-51.0 [facility] Comment on above: Performed By: #### L JH1485, QAU5782 ####[place] [address] Hemoglobin (Bld) [Mass/Vol] 10.5 g/dL Low 12.0-16.0 [facility] Comment on above: Performed By: #### L YR5348, LRJ5374 ####[place] [address] Lymphocytes (Bld) [#/Vol] 1.1 10*3/uL Normal 1.1-5.0 [facility] Comment on above: Performed By: #### L CB6211, JUH3961 ####BABATUNDE [address] [address] Lymphocytes/100 WBC (Bld) 20.8 % Low 24.0-44.0 [facility] Comment on above: Performed By: #### L GN8309, TCJ0501 ####[place] [address] MCH (RBC) [Entitic mass] 32.9 pg Normal 26.0-34.0 [facility] Comment on above: Performed By: #### L WO0417, GGT6908 ####[place] [address] MCHC (RBC) [Mass/Vol] 35.7 g/dL Normal 32.0-36.0 [facility] Comment on above: Performed By: #### L UC5567, ZYH4188 ####[place] [address] MCV (RBC) [Entitic vol] 92.1 fL Normal 80.0-100.0 [facility] Comment on above: Performed By: #### L HM2818, LRN2665 ####[place] [address] Monocytes (Bld) [#/Vol] 0.7 10*3/uL Normal 0.0-1.4 [facility] Comment on above: Performed By: #### L KD1476, PLJ7879 ####[place] [address] Monocytes/100 WBC (Bld) 14.3 % High 2.1-13.3 [facility] Comment on above: Performed By: #### L BU0794, VSN8002 ####[place] [address] Neutrophils, Abs. 3.1 10*3/uL Normal 1.5-8.5 [facility] Comment on above: Performed By: #### L PI5495, ZJY5606 ####[place] [address] Neutrophils/100 WBC (Bld) 59.5 % Normal 35.0-66.0 [facility] Comment on above: Performed By: #### L YG4257, TLE2977 ####[place] [address] Platelet Cnt 63 10*3/uL Low 150-450 [facility] Comment on above: Performed By: #### L GT1528, BNC6018 ####[place] [address] Platelet mean volume (Bld) [Entitic vol] 9.5 fL Normal 6.5-10.0 [facility] Comment on above: Performed By: #### L YY0630, WRG9988 ####[place] [address] RBC (Bld) [#/Vol] 3.20 10*6/uL Low 4.00-5.20 [facility] Comment on above: Performed By: #### L VY0952, NIB7246 ####[place] [address] WBC (Bld) [#/Vol] 5.2 10*3/uL Normal 4.5-11.0 [facility] Comment on above: Performed By: #### L EQ8744, WZQ9110 ####[place] [address] CBC w/Differentialon 10-15-2 024 Basophils (Bld) [#/Vol] 0.0 10*3/uL 0.0 - 0.1 10*3/uL [facility] Basophils/100 WBC (Bld) 0.7 % 0.0 - 1.0 % [facility] Differential cell count method Nom (Bld) Auto [facility] Eosinophils (Bld) [#/Vol] 0.2 10*3/uL 0.0 - 0.5 10*3/uL [facility] Eosinophils/100 WBC (Bld) 4.7 % 0.3 - 5.0 % [facility] Erythrocyte distribution width (RBC) [Ratio] 17.6 % 10.7 - 18.7 % [facility] Hematocrit (Bld) [Volume fraction] 29.4 % Low 33.0 - 51.0 % [facility] Hemoglobin (Bld) [Mass/Vol] 10.5 g/dL Low 12.0 - 16.0 g/dL [facility] Interpretation and review of laboratory results Abnormal [facility] Lymphocytes (Bld) [#/Vol] 1.1 10*3/uL 1.1 - 5.0 10*3/uL [facility] Lymphocytes/100 WBC (Bld) 20.8 % Low 24.0 - 44.0 % [facility] MCH (RBC) [Entitic mass] 32.9 pg 26.0 - 34.0 pg [facility] MCHC (RBC) [Mass/Vol] 35.7 g/dL 32.0 - 36.0 g/dL [facility] MCV (RBC) [Entitic vol] 92.1 fL 80.0 - 100.0 fL [facility] Monocytes (Bld) [#/Vol] 0.7 10*3/uL 0.0 - 1.4 10*3/uL [facility] Monocytes/100 WBC (Bld) 14.3 % High 2.1 - 13.3 % [facility] Neutrophils (Bld) [#/Vol] 3.1 10*3/uL 1.5 - 8.5 10*3/uL [facility] Neutrophils/100 WBC (Bld) 59.5 % 35.0 - 66.0 % [facility] Platelet mean volume (Bld) [Entitic vol] 9.5 fL 6.5 - 10.0 fL [facility] Platelets (Bld) [#/Vol] 63 10*3/uL Low 150 - 450 10*3/uL [facility] RBC (Bld) [#/Vol] 3.20 10*6/uL Low 4.00 - 5.2 0 10*6/uL [facility] WBC (Bld) [#/Vol] 5.2 10*3/uL 4.5 - 11.0 10*3/uL [facility] COMPREHENSIVE METABOLIC PANE [place] 07-10-2024 Albumin [Mass/Vol] 3.1 g/dL Low 3.2-5.0 [facility] Comment on above: Performed By: #### L FW1685, NIV7148 ####[place] [address] Albumin/Globulin [Mass ratio] 1.2 {ratio} Normal [facility] Comment on above: Performed By: #### L GO1223, MQS3117 ####[place] [address] ALP [Catalytic activity/Vol] 84 U/L Normal 42-121 [facility] Comment on above: Performed By: #### L BY7509, UNM5870 ####[place] [address] ALT [Catalytic activity/Vol] 44 U/L Normal 10-60 [facility] Comment on above: Performed By: #### L JH3114, JZR8917 ####[place] [address] Anion gap [Moles/Vol] 6 mmol/L Normal [facility] Comment on above: Performed By: #### L OD9654, AYW6420 ####[place] [address] AST [Catalytic activity/Vol] 69 U/L High 10-42 [facility] Comment on above: Performed By: #### L OL5096, URS9847 ####[place] [address] B/C 11 Normal 10-20 [facility] Comment on above: Performed By: #### L WT8156, YVK0796 ####[place] [address] Bilirubin.direct [Mass/Vol] 1.6 mg/dL High 0.2-1.0 [facility] Comment on above: Performed By: #### L LV8133, VTC0405 ####[place] [address] Calcium [Mass/Vol] 9.0 mg/dL Normal 8.5-10.5 [facility] Comment on above: Performed By: #### L JZ9830, TMN3497 ####BABATUNDE [address] [address] Chloride [Moles/Vol] 107 mmol/L Normal 101-111 [facility] Comment on above: Performed By: #### L OH5247, AVN2474 ####BABATUNDE [address] [address] CO2 [Moles/Vol] 25 mmol/L Normal 21-31 [facility] Comment on above: Performed By: #### L [id number], [id number] ####BABATUNDE [address] [address] Creatinine [Mass/Vol] 0.8 mg/dL Normal 0.4-1.0 [facility] Comment on above: Performed By: #### L [id number], [id number] ####[place] [address] GFR/1.73 sq M.predicted MDRD (S/P/Bld) [Vol rate/Area] 76 mL/min/{1.73_m2} Normal [facility] Comment on above: Result Comment: *The estimated Glomerular Filtration Rate(EGFR) may not be accurate for children under the age of 18 yrs. To estimate the GFR for -Americans multiply the result provided by 1.21.Stage 1 90 mL/min or greaterStage 2 60-89 mL/minStage 3 30-59 mL/minStage 4 15-29 mL/minStage 5 14 mL/min or less Performed By: #### L [id number], [id number] ####BABATUNDE [address] [address] Glucose [Mass/Vol] 114 mg/dL High 70-110 [facility] Comment on above: Performed By: #### L [id number], [id number] ####BABATUNDE [address] [address] Osmolality [Osmolality] 275 mosm/kg Normal 266-309 [facility] Comment on above: Performed By: #### L [id number], [id number] ####KDMNuvia Beason [id number] [place] [address] Potassium [Moles/Vol] 4.3 mmol/L Normal 3.6-5.0 [facility] Comment on above: Performed By: #### L MF7030, [id number] ####BABTAUNDE Beason [address] [place] [address] Protein [Mass/Vol] 5.7 g/dL Low 6.1-7.8 [facility] Comment on above: Performed By: #### L TL4725, NME8299 ####BABATUNDE Beason [address] [place] [address] Sodium [Moles/Vol] 138 mmol/L Normal 135-145 [facility] Comment on above: Performed By: #### L LV8525, XBO5924 ####BABATUNDE Beason [address] [place] [address] Urea nitrogen [Mass/Vol] 9 mg/dL Normal 2-32 [facility] Comment on above: Performed By: #### L AV6311, [id number] ####BABATUNDE Beason [address] [place] [address] Comprehensive Metabolic Pane merritt 07-10-2024 Albumin [Mass/Vol] 3.1 g/dL Low 3.2 - 5.0 g/dL [facility] Albumin/Globulin [Mass ratio] 1.2 {ratio} [facility] ALP [Catalytic activity/Vol] 84 U/L 42 - 121 [iU]/L [facility] ALT [Catalytic activity/Vol] 44 U/L 10 - 60 [iU]/L [facility] Anion gap [Moles/Vol] 6 mmol/L [facility] AST [Catalytic activity/Vol] 69 U/L High 10 - 42 [iU]/L [facility] Bilirubin [Mass/Vol] 1.6 mg/dL High 0.2 - 1 .0 mg/dL [facility] Calcium [Mass/Vol] 9.0 mg/dL 8.5 - 10. 5 mg/dL [facility] Chloride [Moles/Vol] 107 mmol/L 101 - 1 11 mmol/L [facility] CO2 [Moles/Vol] 25 mmol/L 21 - 31 mmol/L [facility] Creatinine [Mass/Vol] 0.8 mg/dL 0.4 - 1.0 mg/dL [facility] GFR/1.73 sq M.predicted MDRD (S/P/Bld) [Vol rate/Area] 76 mL/min/{1.73_m2} [facility] Comment on above: *The estimated Glome rular Filtration Rate(EGFR) may not be accurate for children under the age of 18 yrs. To estimate the GFR for -Americans multiply the result provided by 1.21. Stage 1 90 mL/min or greater Stage 2 60-89 mL/min Stage 3 30-59 mL/min Stage 4 15-29 mL/min Stage 5 14 mL/min or less Glucose [Mass/Vol] 114 mg/dL High 70 - 110 mg/dL [facility] Interpretation and review of laboratory results Abnormal [facility] Osmolality Calc [Osmolality] 275 266 - 309 [facility] Potassium [Moles/Vol] 4.3 mmol/L 3.6 - 5.0 mmol/L [facility] Protein [Mass/Vol] 5.7 g/dL Low 6.1 - 7.8 g/dL [facility] Sodium [Moles/Vol] 138 mmol/L 135 - 145 mmol/L [facility] Urea nitrogen [Mass/Vol] 9 mg/dL 2 - 32 mg/dL [facility] Urea nitrogen/Creatinine [Mass ratio] 11 mg/mg 10 - 20 [facility] CBC w/ Differentialon 2023 Basophil Abs. 0.1 10*3/uL Normal 0.0-0.1 [facility] Comment on above: Performed By: #### L QA3787, YPO1567 ####[facility] [address] [place] [address] Basophils/100 WBC (Bld) 1.0 % Normal 0.0-1.0 [facility] Comment on above: Performed By: #### L WD3087, IKO8611 ####[place] [address] Differential type Auto Normal [facility] Comment on above: Performed By: #### L SN3502, EVD5852 ####[place] [address] Eosinophils (Bld) [#/Vol] 0.4 10*3/uL Normal 0.0-0.5 [facility] Comment on above: Performed By: #### L FM2750, MGQ2612 ####[place] [address] Eosinophils/100 WBC (Bld) 5.8 % High 0.3-5.0 [facility] Comment on above: Performed By: #### L CI4095, TID9173 ####[place] [address] Erythrocyte distribution width (RBC) [Ratio] 17.9 % Normal 10.7-18.7 [facility] Comment on above: Performed By: #### L TC0114, JSG3283 ####[place] [address] Hematocrit (Bld) [Volume fraction] 35.0 % Normal 33.0-51.0 [facility] Comment on above: Performed By: #### L DU1591, QUF0979 ####[place] [address] Hemoglobin (Bld) [Mass/Vol] 12.3 g/dL Normal 12.0-16.0 [facility] Comment on above: Performed By: #### L DS0797, CFI6055 ####[place] [address] Lymphocytes (Bld) [#/Vol] 2.0 10*3/uL Normal 1.1-5.0 [facility] Comment on above: Performed By: #### L TJ0743, EVA4896 ####[place] [address] Lymphocytes/100 WBC (Bld) 26.1 % Normal 24.0-44.0 [facility] Comment on above: Performed By: #### L OE6935, YXU8022 ####[place] [address] MCH (RBC) [Entitic mass] 32.6 pg Normal 26.0-34.0 [facility] Comment on above: Performed By: #### L RR6892, LZG1610 ####[place] [address] MCHC (RBC) [Mass/Vol] 35.1 g/dL Normal 32.0-36.0 [facility] Comment on above: Performed By: #### L MC8919, DAG5085 ####[place] [address] MCV (RBC) [Entitic vol] 92.8 fL Normal 80.0-100.0 [facility] Comment on above: Performed By: #### L LX3982, ZXE9597 ####[place] [address] Monocytes (Bld) [#/Vol] 0.9 10*3/uL Normal 0.0-1.4 [facility] Comment on above: Performed By: #### L GP5894, FGW2411 ####[place] [address] Monocytes/100 WBC (Bld) 12.1 % Normal 2.1-13.3 [facility] Comment on above: Performed By: #### L RP2617, NRQ3946 ####[place] [address] Neutrophils, Abs. 4.2 10*3/uL Normal 1.5-8.5 [facility] Comment on above: Performed By: #### L ON8557, KEZ8356 ####[place] [address] Neutrophils/100 WBC (Bld) 55.0 % Normal 35.0-66.0 [facility] Comment on above: Performed By: #### L UL0031, IIW9427 ####BABATUNDE Beason [address] [place] [address] Platelet Cnt 83 10*3/uL Low 150-450 [facility] Comment on above: Performed By: #### L YK4965, PLJ0756 ####[address] [address] Platelet mean volume (Bld) [Entitic vol] 9.6 fL Normal 6.5-10.0 [facility] Comment on above: Performed By: #### L GH7873, LUV3324 ####[address] [address] RBC (Bld) [#/Vol] 3.77 10*6/uL Low 4.00-5.20 [facility] Comment on above: Performed By: #### L GU0823, CLI2072 ####[address] [address] WBC (Bld) [#/Vol] 7.6 10*3/uL Normal 4.5-11.0 [facility] Comment on above: Performed By: #### L CW7008, AYC0127 ####[address] [address] CBC w/Differentialon 024 Basophils (Bld) [#/Vol] 0.1 10*3/uL 0.0 - 0.1 10*3/uL [facility] Basophils/100 WBC (Bld) 1.0 % 0.0 - 1.0 % [facility] Differential cell count method Nom (Bld) Auto [facility] Eosinophils (Bld) [#/Vol] 0.4 10*3/uL 0.0 - 0.5 10*3/uL [facility] Eosinophils/100 WBC (Bld) 5.8 % High 0.3 - 5.0 % [facility] Erythrocyte distribution width (RBC) [Ratio] 17.9 % 10.7 - 18.7 % [facility] Hematocrit (Bld) [Volume fraction] 35.0 % 33.0 - 51.0 % [facility] Hemoglobin (Bld) [Mass/Vol] 12.3 g/dL 12.0 - 16.0 g/dL [facility] Interpretation and review of laboratory results Abnormal [facility] Lymphocytes (Bld) [#/Vol] 2.0 10*3/uL 1.1 - 5.0 10*3/uL [facility] Lymphocytes/100 WBC (Bld) 26.1 % 24.0 - 44.0 % [facility] MCH (RBC) [Entitic mass] 32.6 pg 26.0 - 34.0 pg [facility] MCHC (RBC) [Mass/Vol] 35.1 g/dL 32.0 - 36.0 g/dL [facility] MCV (RBC) [Entitic vol] 92.8 fL 80.0 - 100.0 fL [facility] Monocytes (Bld) [#/Vol] 0.9 10*3/uL 0.0 - 1.4 10*3/uL [facility] Monocytes/100 WBC (Bld) 12.1 % 2.1 - 13.3 % [facility] Neutrophils (Bld) [#/Vol] 4.2 10*3/uL 1.5 - 8.5 10*3/uL [facility] Neutrophils/100 WBC (Bld) 55.0 % 35.0 - 66.0 % [facility] Platelet mean volume (Bld) [Entitic vol] 9.6 fL 6.5 - 10.0 fL [facility] Platelets (Bld) [#/Vol] 83 10*3/uL Low 150 - 450 10*3/uL [facility] RBC (Bld) [#/Vol] 3.77 10*6/uL Low 4.00 - 5.2 0 10*6/uL [facility] WBC (Bld) [#/Vol] 7.6 10*3/uL 4.5 - 11.0 10*3/uL [facility] COMPREHENSIVE METABOLIC PANE Merritt 07-09-2024 Albumin [Mass/Vol] 3.1 g/dL Low 3.2-5.0 [facility] Comment on above: Performed By: #### L OH2935, GDJ0786 ####[place] [address] Albumin/Globulin [Mass ratio] 0.8 {ratio} Normal [facility] Comment on above: Performed By: #### L JJ5011, GMR3716 ####[place] [address] ALP [Catalytic activity/Vol] 96 U/L Normal 42-121 [facility] Comment on above: Performed By: #### L IR8052, IXR2839 ####[place] [address] ALT [Catalytic activity/Vol] 54 U/L Normal 10-60 [facility] Comment on above: Performed By: #### L AH6391, ZBA2646 ####[place] [address] Anion gap [Moles/Vol] 6 mmol/L Normal [facility] Comment on above: Performed By: #### L IG0362, UOL5045 ####[place] [address] AST [Catalytic activity/Vol] 89 U/L High 10-42 [facility] Comment on above: Performed By: #### L UY8944, KHB2127 ####[place] [address] B/C 14 Normal 10-20 [facility] Comment on above: Performed By: #### L HK2627, VXO2300 ####[place] [address] Bilirubin.direct [Mass/Vol] 1.9 mg/dL High 0.2-1.0 [facility] Comment on above: Performed By: #### L KH8979, BFH5419 ####[place] [address] Calcium [Mass/Vol] 9.2 mg/dL Normal 8.5-10.5 [facility] Comment on above: Performed By: #### L WJ7474, OSO4223 ####[place] [address] Chloride [Moles/Vol] 109 mmol/L Normal 101-111 [facility] Comment on above: Performed By: #### L IB1142, RSA0052 ####BABATUNDE [address] [address] CO2 [Moles/Vol] 21 mmol/L Normal 21-31 [facility] Comment on above: Performed By: #### L MU5930, ZMM6695 ####[place] [address] Creatinine [Mass/Vol] 0.9 mg/dL Normal 0.4-1.0 [facility] Comment on above: Performed By: #### L AV9802, BQZ7746 ####[place] [address] GFR/1.73 sq M.predicted MDRD (S/P/Bld) [Vol rate/Area] 66 mL/min/{1.73_m2} Normal [facility] Comment on above: Result Comment: *The estimated Glomerular Filtration Rate(EGFR) may not be accurate for children under the age of 18 yrs. To estimate the GFR for -Americans multiply the result provided by 1.21.Stage 1 90 mL/min or greaterStage 2 60-89 mL/minStage 3 30-59 mL/minStage 4 15-29 mL/minStage 5 14 mL/min or less Performed By: #### L TJ1704, QYU9556 ####[place] [address] Glucose [Mass/Vol] 77 mg/dL Normal 70-110 [facility] Comment on above: Performed By: #### L DQ5176, FFM0605 ####BABATUNDE [address] [address] Osmolality [Osmolality] 271 mosm/kg Normal 266-309 [facility] Comment on above: Performed By: #### L WJ7261, FBR8365 ####BABATUNDE [address] [address] Potassium [Moles/Vol] 4.2 mmol/L Normal 3.6-5.0 [facility] Comment on above: Performed By: #### L VF6133, VVO6379 ####[facility] [address] [place] [address] Protein [Mass/Vol] 7.0 g/dL Normal 6.1-7.8 [facility] Comment on above: Performed By: #### L EM1173, LGQ1281 ####BABSC Beason [address] [place] [address] Sodium [Moles/Vol] 136 mmol/L Normal 135-145 [facility] Comment on above: Performed By: #### L IU0872, UYS0566 ####BABSC Beason [address] [place] [address] Urea nitrogen [Mass/Vol] 13 mg/dL Normal 2-32 [facility] Comment on above: Performed By: #### L RT1309, VNM1337 ####[facility] [address] [place] [address] Comprehensive Metabolic Pane merritt 07-09-2024 Albumin [Mass/Vol] 3.1 g/dL Low 3.2 - 5.0 g/dL [facility] Albumin/Globulin [Mass ratio] 0.8 {ratio} [facility] ALP [Catalytic activity/Vol] 96 U/L 42 - 121 [iU]/L [facility] ALT [Catalytic activity/Vol] 54 U/L 10 - 60 [iU]/L [facility] Anion gap [Moles/Vol] 6 mmol/L [facility] AST [Catalytic activity/Vol] 89 U/L High 10 - 42 [iU]/L [facility] Bilirubin [Mass/Vol] 1.9 mg/dL High 0.2 - 1 .0 mg/dL [facility] Calcium [Mass/Vol] 9.2 mg/dL 8.5 - 10. 5 mg/dL [facility] Chloride [Moles/Vol] 109 mmol/L 101 - 1 11 mmol/L [facility] CO2 [Moles/Vol] 21 mmol/L 21 - 31 mmol/L [facility] Creatinine [Mass/Vol] 0.9 mg/dL 0.4 - 1.0 mg/dL [facility] GFR/1.73 sq M.predicted MDRD (S/P/Bld) [Vol rate/Area] 66 mL/min/{1.73_m2} [facility] Comment on above: *The estimated Glome rular Filtration Rate(EGFR) may not be accurate for children under the age of 18 yrs. To estimate the GFR for -Americans multiply the result provided by 1.21. Stage 1 90 mL/min or greater Stage 2 60-89 mL/min Stage 3 30-59 mL/min Stage 4 15-29 mL/min Stage 5 14 mL/min or less Glucose [Mass/Vol] 77 mg/dL 70 - 110 mg/dL [facility] Interpretation and review of laboratory results Abnormal [facility] Osmolality Calc [Osmolality] 271 266 - 309 [facility] Potassium [Moles/Vol] 4.2 mmol/L 3.6 - 5.0 mmol/L [facility] Protein [Mass/Vol] 7.0 g/dL 6.1 - 7.8 g/dL [facility] Sodium [Moles/Vol] 136 mmol/L 135 - 145 mmol/L [facility] Urea nitrogen [Mass/Vol] 13 mg/dL 2 - 32 mg/dL [facility] Urea nitrogen/Creatinine [Mass ratio] 14 mg/mg 10 - 20 [facility] FLUID CELL COUNTon 4 Character (U) Clear Normal [facility] Comment on above: Performed By: #### L XG7410, PBO3088, REE3365, EYS6530, LCZ3951, HVQ4111 ####[facility] [address] [place] [address] Color (U) Yellow Normal [facility] Comment on above: Performed By: #### L SJ3705, GMT6771, LTJ0901, ZMY4713, GDM0487, SNO1132 ####[facility] [address] [place] [address] FLD COMMENT see below Normal [facility] Comment on above: Result Comment: Refe rence ranges & other method performance specifications have not beenestablished for this body fluid type. The test result must be integratedinto the clinical context for interpretation. Performed By: #### L DB6741, IDZ6633, EYC1543, XMF0848, KHM3383, FOJ4011 ####[place] [address] RBC 340 uL [facility] Comment on above: Performed By: #### L SK1501, QIU3626, JKH2822, EUR2035, CCH6345, ZEG7393 ####[place] [address] SOURCE Ascites Normal [facility] Comment on above: Performed By: #### L PT3275, PIS0358, JOC9431, NKA9757, WHA5654, ISE0159 ####[place] [address] TOTAL NUC. CELLS 124 uL [facility] Comment on above: Result Comment: RESU LTS OF COUNT MAY BE INACCURATE IF SPECIMEN IS PARTIALLYCLOTTED OR EXHIBIT CELL CLUMPING. Performed By: #### L GK8370, HFU5887, NCO4694, EHD3508, WIZ0379, YFC6816 ####[place] [address] TUBE NUMBER Syringe [facility] Comment on above: Performed By: #### L YJ4138, FCX5116, DLD3766, KTP2233, XLH4633, QVF3632 ####[place] [address] VOLUME 50.0 [facility] Comment on above: Performed By: #### L MC0108, EXE6101, HXQ0877, YWP0635, DYF7295, YVN6776 ####[place] [address] FLUID CULTUREon 07-09-2024 FLUID CULTURE Bacteria identified in Body fluid by Culture FLUID CULTURE: No Growth - Preliminary Microscopic observation [Identifier] in Specimen by Gram stain GRAM STAIN SMEAR: No WBC'S. No organisms seen. [facility] Comment on above: Performed By: #### L AS2592 ####[facility] [address] [place] [address] GLUCOSE, FLUIDon 07-09-2024 GLUCOSE, FLUID 110 mg/dL Normal [facility] Comment on above: Result Comment: Refe rence ranges & other method performance specifications have not beenestablished for this body fluid type. The test result must be integratedinto the clinical context for interpretation. Performed By: #### L WK0681, DAZ1076, MQZ4394, ULC9541, IFR0339, LBT5833 ####[facility] [address] [place] [address] Glucose Body Fluidon 024 Glucose (Body fld) [Mass/Vol] 110 mg/dL [facility] Comment on above: Reference ranges & o ther method performance specifications have not been established for this body fluid type. The test result must be integrated into the clinical context for interpretation. LDH, FLUIDon 07-09-2024 LDH FLUID 45 [iU]/L Low 60-160 [facility] Comment on above: Performed By: #### L QR9706, HHF6641, PZY4279, INC9673, PWC5095, HJC4662 ####[place] [address] LDH, Fluidon 07-09-2024 Interpretation and review of laboratory results Abnormal [facility] LDH (Body fld) [Catalytic activity/Vol] 45 [iU]/L Low 60 - 160 [iU]/L [facility] NON HOME CHILD CARE PROVIDER CASESon 07-09-2024 NON HOME CHILD CARE PROVIDER CASES Normal [facility] Comment on above: Performed By: #### L KS5026 ####[facility] [address] [place] [address] No Panel Informationon 07-09 [facility] PH, FLUIDon 07-09-2024 PH, FLUID 7.1 Normal [facility] Comment on above: Performed By: #### L JK2719, IQU7609, BCQ5325, DOE7349, NMQ7161, WUW2505 ####BABATUNDE Beason [address] [place] [address] PROTEIN, FLUIDon 07-09-2024 PROTEIN, FLUID 3.0 g/dL Normal [facility] Comment on above: Result Comment: Refe rence ranges & other method performance specifications have not beenestablished for this body fluid type. The test result must be integratedinto the clinical context for interpretation. Performed By: #### L KL3387, XUO9532, HPQ7908, PSJ5367, RUL4930, RPA6048 ####[facility] [address] [place] [address] SOURCE Ascites Normal [facility] Comment on above: Performed By: #### L SO2317, ONR3455, GIY9960, EJS5462, VAF4467, CBG0970 ####[facility] [address] [place] [address] Ph Body Fluidon 07-09-2024 pH (Body fld) 7.1 [pH] [facility] Specimen source Nom (Body fld) Ascites [facility] Protein Body Fluidon 024 Protein (Body fld) [Mass/Vol] 3.0 g/dL [facility] Comment on above: Reference ranges & o ther method performance specifications have not been established for this body fluid type. The test result must be integrated into the clinical context for interpretation. Specimen source Nom (Body fld) Ascites [facility] Rapid Tox Screen, Urine (KDM C)on 07-09-2024 Amphetamine cutoff Screen (U) [Mass/Vol] Negative Cutoff: 1000 ng/mL [facility] Barbiturates cutoff Screen (U) [Mass/Vol] Negative Cutoff: 200 ng/mL [facility] Benzodiazepines cutoff Screen (U) [Mass/Vol] Negative Cutoff: 200 ng/mL [facility] Buprenorphine [Mass/Vol] Negative Cutoff: 5 ng/mL [facility] Comment on above: Note, cutoff changed from 10 to 5 ng/mL 08/10/18. Cocaine cutoff Screen (U) [Mass/Vol] Negative Cutoff: 300 ng/mL [facility] fentaNYL Screen Ql (U) Negative Cutof f: 5 ng/mL [facility] Comment on above: Note, cutoff changed from 200 to 5 ng/mL 04/29/22. Interpretation and review of laboratory results Abnormal [facility] Methadone cutoff Screen (U) [Mass/Vol] Negative Cutoff: 300 ng/mL [facility] Opiates cutoff Screen (U) [Mass/Vol] Positive Abnormal Cutoff: 300 ng/mL [facility] oxyCODONE cutoff Screen (U) [Mass/Vol] Negative Cutoff: 300 ng/mL [facility] Phencyclidine cutoff Screen (U) [Mass/Vol] Negative Cutoff: 25 ng/mL [facility] Propoxyphene cutoff Screen (U) [Mass/Vol] Negative Cutoff: 300 ng/mL [facility] Comment on above: IMPORTANT This is a screening method. The test results are to be used for medical purposes only. Many common compounds can cause false positive results. Confirmation of a positive result is available upon request. Tetrahydrocannabinol cutoff Screen (U) [Mass/Vol] Positive Abnormal Cutoff: 50 ng/mL [facility] TOX SCREEN, RAPID, URon 10-1 AMPHETAMINES, UR Negative Normal Cutoff: 1000 [facility] Comment on above: Performed By: #### L NQ0749 ####[place] [address] BARBITURATES, UR Negative Normal Cutoff: 200 [facility] Comment on above: Performed By: #### L IL4843 ####[place] [address] BENZODIAZEPINES, UR Negative Normal Cutoff: 200 [facility] Comment on above: Performed By: #### L BH6745 ####[place] [address] BUPRENORPHINE, UR Negative Normal Cutoff: 5 [facility] Comment on above: Result Comment: Note , cutoff changed from 10 to 5 ng/mL 08/10/18. Performed By: #### L FV0050 ####[place] [address] CANNABINOID, UR Positive Abnormal Cutoff: 50 [facility] Comment on above: Performed By: #### L OY6444 ####[place] [address] COCAINE, UR Negative Normal Cutoff: 300 [facility] Comment on above: Performed By: #### L UA8487 ####[place] [address] FENTANYL, UR Negative Normal Cutoff: 5 [facility] Comment on above: Result Comment: Note , cutoff changed from 200 to 5 ng/mL 04/29/22. Performed By: #### L CC0385 ####[place] [address] METHADONE, UR Negative Normal Cutoff: 300 [facility] Comment on above: Performed By: #### L TR0778 ####[place] [address] OPIATES, UR Positive Abnormal Cutoff: 300 [facility] Comment on above: Performed By: #### L UF9167 ####[place] [address] OXYCODONE, UR Negative Normal Cutoff: 300 [facility] Comment on above: Performed By: #### L SF9457 ####[place] [address] PHENCYCLIDINE, UR Negative Normal Cutoff: 25 [facility] Comment on above: Performed By: #### L WQ6770 ####[place] [address] PROPOXYPHENE, UR Negative Normal Cutoff: 300 [facility] Comment on above: Result Comment: IM PORTANTThis is a screening method. The test results are to be usedfor medical purposes only. Many common compounds can cause false positiveresults. Confirmation of a positive result is available upon request. Performed By: #### L JF0377 ####[place] [address] VASCULAR PROCEDUREon VASCULAR PROCEDURE Normal [facility] Vascular Procedureon 024 : Technically successful ultrasound-guided therapeutic paracentesis with aspiration of 4400 cc of cloudy yellow fluid. SIGNED: Ginger Milton MD 07/09/2024 5:10 PM [facility] INTERVENTIONAL RADIOLOGY REPORT PATIENT: Carolina Hightower DATE OF : 1975 PROCEDURE: Ultrasound-guided therapeutic paracentesis. INDICATION: Symptomatic ascites. COMPLICATIONS: none SEDATION: none TECHNIQUE: Potential risk and benefits were discussed with and informed consent was obtained. The patient was brought to the angiography lab and placed in a supine position. Sonographic evaluation of the abdomen demonstrated a moderate amount of free peritoneal fluid. Sonographic images were obtained and saved to the patient's chart. Skin site on the right abdomen was marked. The area was prepped and draped in a sterile fashion with local anesthesia provided using 1% buffered lidocaine. A 6.5 Swedish non-locking Resolve pigtail catheter was advanced into the peritoneal space. 4400 cc of cloudy yellow fluid were obtained. The catheter was removed intact. A dry sterile dressing was applied to the puncture site. The patient tolerated the procedure well and there were no immediate complications. The patient was given 37.5 g IV albumin. FINDINGS: Moderate amount of free peritoneal fluid/ascites. [facility] Radiology Study observation (narrative) [facility] CBC w/ Differentialon 2023 Basophil Abs. 0.1 10*3/uL Normal 0.0-0.1 [facility] Comment on above: Order Comment: Yahaira ction has been rescheduled by SW at 07/08/2024 18:16 Reason: miss Performed By: #### L II1764, BGQ1660, KJG6217 ####[place] [address] Basophils/100 WBC (Bld) 1.1 % High 0.0-1.0 [facility] Comment on above: Order Comment: Yahaira ction has been rescheduled by SW at 07/08/2024 18:16 Reason: miss Performed By: #### L AL9495, AXI2858, DQT5125 ####[place] [address] Differential type Auto Normal [facility] Comment on above: Order Comment: Yahaira ction has been rescheduled by SW at 07/08/2024 18:16 Reason: miss Performed By: #### L ZO7034, BLA7706, NUX4940 ####[address] [address] Eosinophils (Bld) [#/Vol] 0.3 10*3/uL Normal 0.0-0.5 [facility] Comment on above: Order Comment: Yahaira bradley has been rescheduled by at 07/08/2024 18:16 Reason: miss Performed By: #### L FG5749, FGG2716, MNG5779 ####[place] [address] Eosinophils/100 WBC (Bld) 4.4 % Normal 0.3-5.0 [facility] Comment on above: Order Comment: Yahaira bradley has been rescheduled by at 07/08/2024 18:16 Reason: miss Performed By: #### L NM5675, DCZ8517, PQW9947 ####[place] [address] Erythrocyte distribution width (RBC) [Ratio] 17.8 % Normal 10.7-18.7 [facility] Comment on above: Order Comment: Yahaira bradley has been rescheduled by at 07/08/2024 18:16 Reason: miss Performed By: #### L [id number], YYR8247, ETS4420 ####BABATUNDE [address] [address] Hematocrit (Bld) [Volume fraction] 33.4 % Normal 33.0-51.0 [facility] Comment on above: Order Comment: Yahaira bradley has been rescheduled by at 07/08/2024 18:16 Reason: miss Performed By: #### L EN0266, ARE9457, TTU4834 ####BABATUNDE [address] [address] Hemoglobin (Bld) [Mass/Vol] 11.9 g/dL Low 12.0-16.0 [facility] Comment on above: Order Comment: Yahaira bradley has been rescheduled by at 07/08/2024 18:16 Reason: miss Performed By: #### L HS7875, IZH8724, WJV7604 ####[place] [address] Lymphocytes (Bld) [#/Vol] 1.6 10*3/uL Normal 1.1-5.0 [facility] Comment on above: Order Comment: Yahaira bradley has been rescheduled by at 07/08/2024 18:16 Reason: miss Performed By: #### L JN1990, LIZ7736, CRR0702 ####[place] [address] Lymphocytes/100 WBC (Bld) 22.9 % Low 24.0-44.0 [facility] Comment on above: Order Comment: Yahaira bradley has been rescheduled by SW at 07/08/2024 18:16 Reason: miss Performed By: #### L NP0423, JSU8358, XQZ9438 ####[place] [address] MCH (RBC) [Entitic mass] 32.7 pg Normal 26.0-34.0 [facility] Comment on above: Order Comment: Yahaira bradley has been rescheduled by at 07/08/2024 18:16 Reason: miss Performed By: #### L BU5087, BBM1360, FRR3053 ####[place] [address] MCHC (RBC) [Mass/Vol] 35.6 g/dL Normal 32.0-36.0 [facility] Comment on above: Order Comment: Yahaira bradley has been rescheduled by at 07/08/2024 18:16 Reason: miss Performed By: #### L ZP6001, DFA3755, XTQ2016 ####[place] [address] MCV (RBC) [Entitic vol] 91.8 fL Normal 80.0-100.0 [facility] Comment on above: Order Comment: Yahaira bardley has been rescheduled by at 07/08/2024 18:16 Reason: miss Performed By: #### L ZY4631, XBM5765, RUP4569 ####BABATUNDE [address] [address] MDW 18.1 Normal 0.0-20.0 [facility] Comment on above: Order Comment: Yahaira bradley has been rescheduled by SW at 07/08/2024 18:16 Reason: miss Performed By: #### L NM9242, LOH4564, OWG5147 ####[place] [address] Monocytes (Bld) [#/Vol] 0.8 10*3/uL Normal 0.0-1.4 [facility] Comment on above: Order Comment: Yahaira bradley has been rescheduled by at 07/08/2024 18:16 Reason: miss Performed By: #### L VQ7766, CWP7758, OID6540 ####[place] [address] Monocytes/100 WBC (Bld) 11.0 % Normal 2.1-13.3 [facility] Comment on above: Order Comment: Yahaira bradley has been rescheduled by at 07/08/2024 18:16 Reason: miss Performed By: #### L NR5809, WBO7711, JEK6543 ####[place] [address] Neutrophils, Abs. 4.2 10*3/uL Normal 1.5-8.5 [facility] Comment on above: Order Comment: Yahaira bradley has been rescheduled by at 07/08/2024 18:16 Reason: miss Performed By: #### L EY4806, GXW4757, EMF8404 ####BABATUNDE [address] [address] Neutrophils/100 WBC (Bld) 60.6 % Normal 35.0-66.0 [facility] Comment on above: Order Comment: Yahaira bradley has been rescheduled by at 07/08/2024 18:16 Reason: miss Performed By: #### L DR9385, JWS7468, GTL9924 ####BABATUNDE [address] [address] Platelet Cnt 76 10*3/uL Low 150-450 [facility] Comment on above: Order Comment: Yahaira bradley has been rescheduled by at 07/08/2024 18:16 Reason: miss Performed By: #### L OX3225, YHN7774, BRL1214 ####BABATUNDE [address] [address] Platelet mean volume (Bld) [Entitic vol] 9.4 fL Normal 6.5-10.0 [facility] Comment on above: Order Comment: Yahaira bradley has been rescheduled by at 07/08/2024 18:16 Reason: miss Performed By: #### L HU4099, CIQ9469, NFU9833 ####[place] [address] RBC (Bld) [#/Vol] 3.63 10*6/uL Low 4.00-5.20 [facility] Comment on above: Order Comment: Yahaira bradley has been rescheduled by at 07/08/2024 18:16 Reason: miss Performed By: #### L OA7821, XSW4948, HUI2786 ####[place] [address] WBC (Bld) [#/Vol] 6.9 10*3/uL Normal 4.5-11.0 [facility] Comment on above: Order Comment: Yahaira bradley has been rescheduled by at 07/08/2024 18:16 Reason: miss Performed By: #### L HV2092, HHG6438, EJW0600 ####[place] [address] CBC w/Differentialon 024 Basophils (Bld) [#/Vol] 0.1 10*3/uL 0.0 - 0.1 10*3/uL [facility] Basophils/100 WBC (Bld) 1.1 % High 0.0 - 1.0 % [facility] Differential cell count method Nom (Bld) Auto [facility] Eosinophils (Bld) [#/Vol] 0.3 10*3/uL 0.0 - 0.5 10*3/uL [facility] Eosinophils/100 WBC (Bld) 4.4 % 0.3 - 5.0 % [facility] Erythrocyte distribution width (RBC) [Ratio] 17.8 % 10.7 - 18.7 % [facility] Hematocrit (Bld) [Volume fraction] 33.4 % 33.0 - 51.0 % [facility] Hemoglobin (Bld) [Mass/Vol] 11.9 g/dL Low 12.0 - 16.0 g/dL [facility] Interpretation and review of laboratory results Abnormal [facility] Lymphocytes (Bld) [#/Vol] 1.6 10*3/uL 1.1 - 5.0 10*3/uL [facility] Lymphocytes/100 WBC (Bld) 22.9 % Low 24.0 - 44.0 % [facility] MCH (RBC) [Entitic mass] 32.7 pg 26.0 - 34.0 pg [facility] MCHC (RBC) [Mass/Vol] 35.6 g/dL 32.0 - 36.0 g/dL [facility] MCV (RBC) [Entitic vol] 91.8 fL 80.0 - 100.0 fL [facility] Monocyte distribution width Auto (Bld) [Entitic vol] 18.1 0.0 - 20.0 [facility] Monocytes (Bld) [#/Vol] 0.8 10*3/uL 0.0 - 1.4 10*3/uL [facility] Monocytes/100 WBC (Bld) 11.0 % 2.1 - 13.3 % [facility] Neutrophils (Bld) [#/Vol] 4.2 10*3/uL 1.5 - 8.5 10*3/uL [facility] Neutrophils/100 WBC (Bld) 60.6 % 35.0 - 66.0 % [facility] Platelet mean volume (Bld) [Entitic vol] 9.4 fL 6.5 - 10.0 fL [facility] Platelets (Bld) [#/Vol] 76 10*3/uL Low 150 - 450 10*3/uL [facility] RBC (Bld) [#/Vol] 3.63 10*6/uL Low 4.00 - 5.2 0 10*6/uL [facility] WBC (Bld) [#/Vol] 6.9 10*3/uL 4.5 - 11.0 10*3/uL [facility] Collection has been rescheduled by SW at 07/08/2024 18:16 Reason: miss [facility] COMPREHENSIVE METABOLIC PANE [place] 07-08-2024 Albumin [Mass/Vol] 3.0 g/dL Low 3.2-5.0 [facility] Comment on above: Order Comment: Yahaira bradley has been rescheduled by SW at 07/08/2024 18:16 Reason: miss Performed By: #### L QO8761, VHW6585, VRR0907 ####[place] [address] Albumin/Globulin [Mass ratio] 0.9 {ratio} Normal [facility] Comment on above: Order Comment: Yahaira bradley has been rescheduled by SW at 07/08/2024 18:16 Reason: miss Performed By: #### L DU1441, ESE2025, MVC5235 ####[place] [address] ALP [Catalytic activity/Vol] 108 U/L Normal 42-121 [facility] Comment on above: Order Comment: Yahaira ctlelo has been rescheduled by SW at 07/08/2024 18:16 Reason: miss Performed By: #### L GL8221, BIG3098, TIQ1326 ####[place] [address] ALT [Catalytic activity/Vol] 53 U/L Normal 10-60 [facility] Comment on above: Order Comment: Yahaira ction has been rescheduled by SW at 07/08/2024 18:16 Reason: miss Performed By: #### L YD8064, KQM3867, YJT0670 ####[place] [address] Anion gap [Moles/Vol] 3 mmol/L Normal [facility] Comment on above: Order Comment: Yahaira bradley has been rescheduled by at 07/08/2024 18:16 Reason: miss Performed By: #### L LN1853, MBK6074, AFF4585 ####[place] [address] AST [Catalytic activity/Vol] 78 U/L High 10-42 [facility] Comment on above: Order Comment: Yahaira bradley has been rescheduled by SW at 07/08/2024 18:16 Reason: miss Performed By: #### L VR6984, GKD5830, XRJ5765 ####[place] [address] B/C 16 Normal 10-20 [facility] Comment on above: Order Comment: Yahaira bradley has been rescheduled by at 07/08/2024 18:16 Reason: miss Performed By: #### L YO2715, OMF6783, ZMQ5520 ####[place] [address] Bilirubin.direct [Mass/Vol] 1.7 mg/dL High 0.2-1.0 [facility] Comment on above: Order Comment: Yahaira bradley has been rescheduled by at 07/08/2024 18:16 Reason: miss Performed By: #### L KZ5894, DXH0451, QTL1694 ####[place] [address] Calcium [Mass/Vol] 9.3 mg/dL Normal 8.5-10.5 [facility] Comment on above: Order Comment: Yahaira bradley has been rescheduled by at 07/08/2024 18:16 Reason: miss Performed By: #### L WD1233, QQU9090, MHY6471 ####[place] [address] Chloride [Moles/Vol] 110 mmol/L Normal 101-111 [facility] Comment on above: Order Comment: Yahaira ction has been rescheduled by at 07/08/2024 18:16 Reason: miss Performed By: #### L FV2761, GHV9109, EKD0391 ####BABATUNDE [address] [place] [address] CO2 [Moles/Vol] 24 mmol/L Normal 21-31 [facility] Comment on above: Order Comment: Yahaira bradley has been rescheduled by at 07/08/2024 18:16 Reason: miss Performed By: #### L DB8459, ZHE4074, NPE0641 ####[address] [address] Creatinine [Mass/Vol] 0.8 mg/dL Normal 0.4-1.0 [facility] Comment on above: Order Comment: Yahaira bradley has been rescheduled by at 07/08/2024 18:16 Reason: miss Performed By: #### L AJ3024, EOO4838, NLP2325 ####[place] [address] GFR/1.73 sq M.predicted MDRD (S/P/Bld) [Vol rate/Area] 76 mL/min/{1.73_m2} Normal [facility] Comment on above: Order Comment: Yahaira bradley has been rescheduled by at 07/08/2024 18:16 Reason: miss Result Comment: *The estimated Glomerular Filtration Rate(EGFR) may not be accurate for children under the age of 18 yrs. To estimate the GFR for -Americans multiply the result provided by 1.21.Stage 1 90 mL/min or greaterStage 2 60-89 mL/minStage 3 30-59 mL/minStage 4 15-29 mL/minStage 5 14 mL/min or less Performed By: #### L BC6131, VUR3370, WPV4585 ####BABATUNDE [address] [place] [address] Glucose [Mass/Vol] 94 mg/dL Normal 70-110 [facility] Comment on above: Order Comment: Yahaira bradley has been rescheduled by at 07/08/2024 18:16 Reason: miss Performed By: #### L MV0556, GQU4460, BYJ6217 ####BABATUNDE [address] [place] [address] Osmolality [Osmolality] 274 mosm/kg Normal 266-309 [facility] Comment on above: Order Comment: Yahaira bradley has been rescheduled by SW at 07/08/2024 18:16 Reason: miss Performed By: #### L SL5208, XDA8862, NIV6306 ####BABATUNDE [address] [address] Potassium [Moles/Vol] 4.2 mmol/L Normal 3.6-5.0 [facility] Comment on above: Order Comment: Yahaira bradley has been rescheduled by SW at 07/08/2024 18:16 Reason: miss Performed By: #### L SX8411, ZJM3641, ZOR8300 ####[place] [address] Protein [Mass/Vol] 6.4 g/dL Normal 6.1-7.8 [facility] Comment on above: Order Comment: Yahaira bradley has been rescheduled by SW at 07/08/2024 18:16 Reason: miss Performed By: #### L PX0609, THZ4664, UAG7203 ####[place] [address] Sodium [Moles/Vol] 137 mmol/L Normal 135-145 [facility] Comment on above: Order Comment: Yahaira bradley has been rescheduled by SW at 07/08/2024 18:16 Reason: miss Performed By: #### L UQ5335, LZI2686, EQQ9621 ####[place] [address] Urea nitrogen [Mass/Vol] 13 mg/dL Normal 2-32 [facility] Comment on above: Order Comment: Yahaira bradley has been rescheduled by SW at 07/08/2024 18:16 Reason: miss Performed By: #### L YK1247, MPJ3200, ATI5050 ####[place] [address] Comprehensive Metabolic Pane [place] 07-08-2024 Albumin [Mass/Vol] 3.0 g/dL Low 3.2 - 5.0 g/dL [facility] Albumin/Globulin [Mass ratio] 0.9 {ratio} [facility] ALP [Catalytic activity/Vol] 108 U/L 42 - 121 [iU]/L [facility] ALT [Catalytic activity/Vol] 53 U/L 10 - 60 [iU]/L [facility] Anion gap [Moles/Vol] 3 mmol/L [facility] AST [Catalytic activity/Vol] 78 U/L High 10 - 42 [iU]/L [facility] Bilirubin [Mass/Vol] 1.7 mg/dL High 0.2 - 1 .0 mg/dL [facility] Calcium [Mass/Vol] 9.3 mg/dL 8.5 - 10. 5 mg/dL [facility] Chloride [Moles/Vol] 110 mmol/L 101 - 1 11 mmol/L [facility] CO2 [Moles/Vol] 24 mmol/L 21 - 31 mmol/L [facility] Creatinine [Mass/Vol] 0.8 mg/dL 0.4 - 1.0 mg/dL [facility] GFR/1.73 sq M.predicted MDRD (S/P/Bld) [Vol rate/Area] 76 mL/min/{1.73_m2} [facility] Comment on above: *The estimated Glome rular Filtration Rate(EGFR) may not be accurate for children under the age of 18 yrs. To estimate the GFR for -Americans multiply the result provided by 1.21. Stage 1 90 mL/min or greater Stage 2 60-89 mL/min Stage 3 30-59 mL/min Stage 4 15-29 mL/min Stage 5 14 mL/min or less Glucose [Mass/Vol] 94 mg/dL 70 - 110 mg/dL [facility] Interpretation and review of laboratory results Abnormal [facility] Osmolality Calc [Osmolality] 274 266 - 309 [facility] Potassium [Moles/Vol] 4.2 mmol/L 3.6 - 5.0 mmol/L [facility] Protein [Mass/Vol] 6.4 g/dL 6.1 - 7.8 g/dL [facility] Sodium [Moles/Vol] 137 mmol/L 135 - 145 mmol/L [facility] Urea nitrogen [Mass/Vol] 13 mg/dL 2 - 32 mg/dL [facility] Urea nitrogen/Creatinine [Mass ratio] 16 mg/mg 10 - 20 [facility] Collection has been rescheduled by at 07/08/2024 18:16 Reason: miss [facility] PT AND APTTon 07-08-2024 aPTT Coag (Bld) [Time] 37.3 s High 25.5-35.9 [facility] Comment on above: Order Comment: Yahaira bradley has been rescheduled by at 07/08/2024 18:16 Reason: miss Performed By: #### L PX4954, MWN6544, EZT9947 ####BABATUNDE [address] [address] INR Coag (PPP) [Relative time] 1.4 {INR} High 0.9-1.1 [facility] Comment on above: LEVEL OF THERAPY IND ICATIONS TARGET INR RANGE STANDARD DOSE TREATMENT OF VENOUS THROMBOSIS 2.0-3.0 TREATMENT OF PULMONARY EMBOLUS PROPHYLAXIS AGAINST VENOUS THROMBOSIS BY SYSTEMIC EMBOLIZATION . HIGH DOSE HIGH RISK PATIENTS WITH 2.5-3.5 MECHANICAL HEART VALVES Order Comment: Yahaira bradley has been rescheduled by at 07/08/2024 18:16 Reason: miss Result Comment: LEVE L OF THERAPY INDICATIONS TARGET INR RANGESTANDARD DOSE TREATMENT OF VENOUS THROMBOSIS 2.0-3.0 TREATMENT OF PULMONARY EMBOLUS PROPHYLAXIS AGAINST VENOUS THROMBOSIS BY SYSTEMIC EMBOLIZATION .HIGH DOSE HIGH RISK PATIENTS WITH 2.5-3.5 MECHANICAL HEART VALVES Performed By: #### L NY2493, BZB6768, EDS5688 ####BABATUNDE [address] [place] [address] PT Coag (PPP) [Time] 16.4 s High 10.1-13.7 [facility] Comment on above: Order Comment: Yahaira bradley has been rescheduled by at 07/08/2024 18:16 Reason: miss Performed By: #### L NN7019, QXX3628, OBL0915 ####BABATUNDE [address] [place] [address] PT/APTT/INRon 07-08-2024 aPTT Coag (PPP) [Time] 37.3 s High 25.5 - 35.9 s [facility] Interpretation and review of laboratory results Abnormal [facility] Collection has been rescheduled by SHELL at 07/08/2024 18:16 Reason: miss [facility] CBC w/ Differentialon 2023 Basophil Abs. 0.0 10*3/uL Normal 0.0-0.1 [facility] Comment on above: Performed By: #### L XC5128, KVQ3455, FOY7578 ####[place] [address] Basophils/100 WBC (Bld) 0.5 % Normal 0.0-1.0 [facility] Comment on above: Performed By: #### L DE2873, DEQ7413, YWT6480 ####[place] [address] Differential type Auto Normal [facility] Comment on above: Performed By: #### L MO8371, UTI3006, JTD4825 ####[place] [address] Eosinophils (Bld) [#/Vol] 0.4 10*3/uL Normal 0.0-0.5 [facility] Comment on above: Performed By: #### L GV9041, OLB9262, DPR3543 ####[place] [address] Eosinophils/100 WBC (Bld) 5.9 % High 0.3-5.0 [facility] Comment on above: Performed By: #### L TH9437, BXD3384, BQZ2643 ####[place] [address] Erythrocyte distribution width (RBC) [Ratio] 17.6 % Normal 10.7-18.7 [facility] Comment on above: Performed By: #### L XI5491, LLA2649, WGH6321 ####[place] [address] Hematocrit (Bld) [Volume fraction] 35.4 % Normal 33.0-51.0 [facility] Comment on above: Performed By: #### L RV6659, BOR6837, SYD7420 ####[place] [address] Hemoglobin (Bld) [Mass/Vol] 11.4 g/dL Low 12.0-16.0 [facility] Comment on above: Performed By: #### L OF9960, ZED3783, AVA2934 ####[place] [address] Lymphocytes (Bld) [#/Vol] 1.2 10*3/uL Normal 1.1-5.0 [facility] Comment on above: Performed By: #### L VA9977, IKW1768, XTS0774 ####[place] [address] Lymphocytes/100 WBC (Bld) 17.8 % Low 24.0-44.0 [facility] Comment on above: Performed By: #### L SV0951, TMP5716, AHA2345 ####[place] [address] MCH (RBC) [Entitic mass] 30.6 pg Normal 26.0-34.0 [facility] Comment on above: Performed By: #### L HG2932, XPG8876, FTR1617 ####BABATUNDE [address] [address] MCHC (RBC) [Mass/Vol] 32.1 g/dL Normal 32.0-36.0 [facility] Comment on above: Performed By: #### L MU4669, OCI8209, MIW2699 ####[place] [address] MCV (RBC) [Entitic vol] 95.5 fL Normal 80.0-100.0 [facility] Comment on above: Performed By: #### L JB9666, DHA8312, NGY1008 ####[place] [address] Monocytes (Bld) [#/Vol] 0.7 10*3/uL Normal 0.0-1.4 [facility] Comment on above: Performed By: #### L MT3199, NAT6039, RHC7875 ####[address] [address] Monocytes/100 WBC (Bld) 10.9 % Normal 2.1-13.3 [facility] Comment on above: Performed By: #### L KL2057, CTB2544, ADS1121 ####[place] [address] Neutrophils, Abs. 4.4 10*3/uL Normal 1.5-8.5 [facility] Comment on above: Performed By: #### L AK8695, YCD8700, NVF3838 ####[address] [address] Neutrophils/100 WBC (Bld) 64.9 % Normal 35.0-66.0 [facility] Comment on above: Performed By: #### L VH5358, LYU7197, YBO0466 ####[place] [address] Platelet Cnt 71 10*3/uL Low 150-450 [facility] Comment on above: Performed By: #### L IW2008, NGJ7149, KAT4721 ####[address] [address] Platelet mean volume (Bld) [Entitic vol] 9.4 fL Normal 6.5-10.0 [facility] Comment on above: Performed By: #### L IB7630, OMI7882, JKG4607 ####[address] [address] RBC (Bld) [#/Vol] 3.71 10*6/uL Low 4.00-5.20 [facility] Comment on above: Performed By: #### L YF3444, YFH3582, ZMX7586 ####[address] [address] WBC (Bld) [#/Vol] 6.8 10*3/uL Normal 4.5-11.0 [facility] Comment on above: Performed By: #### L KS3271, SNO8243, WMC9593 ####[facility] [place] [address] CBC w/Differentialon 024 Basophils (Bld) [#/Vol] 0.0 10*3/uL 0.0 - 0.1 10*3/uL [facility] Basophils/100 WBC (Bld) 0.5 % 0.0 - 1.0 % [facility] Differential cell count method Nom (Bld) Auto [facility] Eosinophils (Bld) [#/Vol] 0.4 10*3/uL 0.0 - 0.5 10*3/uL [facility] Eosinophils/100 WBC (Bld) 5.9 % High 0.3 - 5.0 % [facility] Erythrocyte distribution width (RBC) [Ratio] 17.6 % 10.7 - 18.7 % [facility] Hematocrit (Bld) [Volume fraction] 35.4 % 33.0 - 51.0 % [facility] Hemoglobin (Bld) [Mass/Vol] 11.4 g/dL Low 12.0 - 16.0 g/dL [facility] Interpretation and review of laboratory results Abnormal [facility] Lymphocytes (Bld) [#/Vol] 1.2 10*3/uL 1.1 - 5.0 10*3/uL [facility] Lymphocytes/100 WBC (Bld) 17.8 % Low 24.0 - 44.0 % [facility] MCH (RBC) [Entitic mass] 30.6 pg 26.0 - 34.0 pg [facility] MCHC (RBC) [Mass/Vol] 32.1 g/dL 32.0 - 36.0 g/dL [facility] MCV (RBC) [Entitic vol] 95.5 fL 80.0 - 100.0 fL [facility] Monocytes (Bld) [#/Vol] 0.7 10*3/uL 0.0 - 1.4 10*3/uL [facility] Monocytes/100 WBC (Bld) 10.9 % 2.1 - 13.3 % [facility] Neutrophils (Bld) [#/Vol] 4.4 10*3/uL 1.5 - 8.5 10*3/uL [facility] Neutrophils/100 WBC (Bld) 64.9 % 35.0 - 66.0 % [facility] Platelet mean volume (Bld) [Entitic vol] 9.4 fL 6.5 - 10.0 fL [facility] Platelets (Bld) [#/Vol] 71 10*3/uL Low 150 - 450 10*3/uL [facility] RBC (Bld) [#/Vol] 3.71 10*6/uL Low 4.00 - 5.2 0 10*6/uL [facility] WBC (Bld) [#/Vol] 6.8 10*3/uL 4.5 - 11.0 10*3/uL [facility] COMPREHENSIVE METABOLIC PANE [place] 07-05-2024 Albumin [Mass/Vol] 3.1 g/dL Low 3.2-5.0 [facility] Comment on above: Performed By: #### L KG2073, IGQ4204, PVF2843 ####[place] [address] Albumin/Globulin [Mass ratio] 0.9 {ratio} Normal [facility] Comment on above: Performed By: #### L UB7721, REJ7881, UTE5061 ####[place] [address] ALP [Catalytic activity/Vol] 112 U/L Normal 42-121 [facility] Comment on above: Performed By: #### L SU0997, YJP4471, NIM4746 ####BABATUNDE Be[address] [place] [address] ALT [Catalytic activity/Vol] 51 U/L Normal 10-60 [facility] Comment on above: Performed By: #### L EK4875, DYD6677, WZC3695 ####[place] [address] Anion gap [Moles/Vol] 1 mmol/L Normal [facility] Comment on above: Performed By: #### L ND1185, CBW5307, EUC9666 ####[place] [address] AST [Catalytic activity/Vol] 78 U/L High 10-42 [facility] Comment on above: Performed By: #### L EY6121, DLK3495, GCS2697 ####[place] [address] B/C 16 Normal 10-20 [facility] Comment on above: Performed By: #### L LO7846, RIV6753, UQZ5188 ####[place] [address] Bilirubin.direct [Mass/Vol] 1.7 mg/dL High 0.2-1.0 [facility] Comment on above: Performed By: #### L BC8144, BOG0077, ZOB2860 ####[place] [address] Calcium [Mass/Vol] 9.1 mg/dL Normal 8.5-10.5 [facility] Comment on above: Performed By: #### L VV2266, MQF4332, NIE2338 ####[place] [address] Chloride [Moles/Vol] 112 mmol/L High 101-111 [facility] Comment on above: Performed By: #### L PS4834, RMC9830, QNH9269 ####[place] [address] CO2 [Moles/Vol] 24 mmol/L Normal 21-31 [facility] Comment on above: Performed By: #### L JG8997, TLO4779, HLZ6325 ####[place] [address] Creatinine [Mass/Vol] 0.8 mg/dL Normal 0.4-1.0 [facility] Comment on above: Performed By: #### L FP8204, BKW0405, AVR0678 ####[place] [address] GFR/1.73 sq M.predicted MDRD (S/P/Bld) [Vol rate/Area] 76 mL/min/{1.73_m2} Normal [facility] Comment on above: Result Comment: *The estimated Glomerular Filtration Rate(EGFR) may not be accurate for children under the age of 18 yrs. To estimate the GFR for -Americans multiply the result provided by 1.21.Stage 1 90 mL/min or greaterStage 2 60-89 mL/minStage 3 30-59 mL/minStage 4 15-29 mL/minStage 5 14 mL/min or less Performed By: #### L [id number], [id number], [id number] ####[place] [address] Glucose [Mass/Vol] 99 mg/dL Normal 70-110 [facility] Comment on above: Performed By: #### L [id number], [id number], [id number] ####[place] [address] Osmolality [Osmolality] 274 mosm/kg Normal 266-309 [facility] Comment on above: Performed By: #### L [id number], [id number], [id number] ####[facility] [address] [address] Potassium [Moles/Vol] 4.2 mmol/L Normal 3.6-5.0 [facility] Comment on above: Performed By: #### L [id number], [id number], [id number] ####[place] [address] [address] Protein [Mass/Vol] 6.6 g/dL Normal 6.1-7.8 [facility] Comment on above: Performed By: #### L [id number], [id number], [id number] ####[place] [address] Sodium [Moles/Vol] 137 mmol/L Normal 135-145 [facility] Comment on above: Performed By: #### L [id number], [id number], [id number] ####[facility]AT[facility] [place] [address] Urea nitrogen [Mass/Vol] 13 mg/dL Normal 2-32 [facility] Comment on above: Performed By: #### L [id number], [id number], [id number] ####[facility] [id number] [place] [address] Comprehensive Metabolic Pane merritt 07-05-2024 Albumin [Mass/Vol] 3.1 g/dL Low 3.2 - 5.0 g/dL [facility] Albumin/Globulin [Mass ratio] 0.9 {ratio} [facility] ALP [Catalytic activity/Vol] 112 U/L 42 - 121 [iU]/L [facility] ALT [Catalytic activity/Vol] 51 U/L 10 - 60 [iU]/L [facility] Anion gap [Moles/Vol] 1 mmol/L [facility] AST [Catalytic activity/Vol] 78 U/L High 10 - 42 [iU]/L [facility] Bilirubin [Mass/Vol] 1.7 mg/dL High 0.2 - 1 .0 mg/dL [facility] Calcium [Mass/Vol] 9.1 mg/dL 8.5 - 10. 5 mg/dL [facility] Chloride [Moles/Vol] 112 mmol/L High 101 - 1 11 mmol/L [facility] CO2 [Moles/Vol] 24 mmol/L 21 - 31 mmol/L [facility] Creatinine [Mass/Vol] 0.8 mg/dL 0.4 - 1.0 mg/dL [facility] GFR/1.73 sq M.predicted MDRD (S/P/Bld) [Vol rate/Area] 76 mL/min/{1.73_m2} [facility] Comment on above: *The estimated Glome rular Filtration Rate(EGFR) may not be accurate for children under the age of 18 yrs. To estimate the GFR for -Americans multiply the result provided by 1.21. Stage 1 90 mL/min or greater Stage 2 60-89 mL/min Stage 3 30-59 mL/min Stage 4 15-29 mL/min Stage 5 14 mL/min or less Glucose [Mass/Vol] 99 mg/dL 70 - 110 mg/dL [facility] Interpretation and review of laboratory results Abnormal [facility] Osmolality Calc [Osmolality] 274 266 - 309 [facility] Potassium [Moles/Vol] 4.2 mmol/L 3.6 - 5.0 mmol/L [facility] Protein [Mass/Vol] 6.6 g/dL 6.1 - 7.8 g/dL [facility] Sodium [Moles/Vol] 137 mmol/L 135 - 145 mmol/L [facility] Urea nitrogen [Mass/Vol] 13 mg/dL 2 - 32 mg/dL [facility] Urea nitrogen/Creatinine [Mass ratio] 16 mg/mg [facility] FLUID CELL COUNTon 4 Basophils/100 WBC (Bld) 0 % Normal [facility] Comment on above: Performed By: #### L KK0488 ####[place] [address] Eosinophils/100 WBC (Bld) 0 % Normal [facility] Comment on above: Performed By: #### L EX3539 ####[place] [address] Lymphocytes/100 WBC (Bld) 59 % Normal [facility] Comment on above: Performed By: #### L QL5673 ####[place] [address] MACROPHAGES 25 % Normal [facility] Comment on above: Performed By: #### L HM7939 ####[place] [address] MESOTHELIAL 13 % Normal [facility] Comment on above: Performed By: #### L FI0997 ####[place] [address] Neutrophils/100 WBC (Bld) 3 % Normal [facility] Comment on above: Performed By: #### L WS8973 ####[place] [address] PATHOLOGY REVIEW see below Normal [facility] Comment on above: Result Comment: REVI EWED BY DR. Silvia AGUDELO: Agree with differential. See report [id number]. 07/05/2024 9:50 AM Performed By: #### L CD2125 ####[place] [address] PLASMA CELLS 0 % Normal [facility] Comment on above: Performed By: #### L HM4434 ####[place] [address] OTHER 0 Normal [facility] Comment on above: Performed By: #### L VM7270 ####[place] [address] HEPATITIS PANEL ACUTEon 06-26 HEPATITIS C AB Reactive Abnormal Negative [facility] Comment on above: Order Comment: [id number] Result Comment: Conf irmatory testing is recommended and is available at [facility](order [id number]). Performed By: #### L CO9051 ####[place] [address] HEP B CORE AB IGM Negative Normal Negative [facility] Comment on above: Order Comment: [id number] Performed By: #### L JQ6401 ####[place] [address] HEPATITIS A AB IGM Negative Normal Negative [facility] Comment on above: Order Comment: [id number] Performed By: #### L UC7525 ####[place] [address] HEP B SURFACE AG Negative Normal Negative [facility] Comment on above: Order Comment: [id number] Performed By: #### L VQ8090 ####[place] [address] Hepatitis Panelon 07-05-2024 HAV IgM IA Ql Negative Negative [facility] HBV core IgM IA Qn Negative Negative [facility] HBV surface Ag IA Ql Negative Negative [facility] HCV Ab IA Ql Reactive Abnormal Negative [facility] Comment on above: Confirmatory testing is recommended and is available at [facility] (order [id number]). Interpretation and review of laboratory results Abnormal [facility] [id number] [facility] PT AND APTTon 07-05-2024 aPTT Coag (Bld) [Time] 36.7 s High 25.5-35.9 [facility] Comment on above: Performed By: #### L RD9772, POU1002, HAF5997 ####[facility] [address] [place] [address] INR Coag (PPP) [Relative time] 1.5 {INR} High 0.9-1.1 [facility] Comment on above: LEVEL OF THERAPY IND ICATIONS TARGET INR RANGE STANDARD DOSE TREATMENT OF VENOUS THROMBOSIS 2.0-3.0 TREATMENT OF PULMONARY EMBOLUS PROPHYLAXIS AGAINST VENOUS THROMBOSIS BY SYSTEMIC EMBOLIZATION . HIGH DOSE HIGH RISK PATIENTS WITH 2.5-3.5 MECHANICAL HEART VALVES Result Comment: CORRIE L OF THERAPY INDICATIONS TARGET INR RANGESTANDARD DOSE TREATMENT OF VENOUS THROMBOSIS 2.0-3.0 TREATMENT OF PULMONARY EMBOLUS PROPHYLAXIS AGAINST VENOUS THROMBOSIS BY SYSTEMIC EMBOLIZATION .HIGH DOSE HIGH RISK PATIENTS WITH 2.5-3.5 MECHANICAL HEART VALVES Performed By: #### L WP3733, RLM2032, KBJ6318 ####[facility] [address] [place] [address] PT Coag (PPP) [Time] 18.0 s High 10.1-13.7 [facility] Comment on above: Performed By: #### L IJ8901, ZGR1281, NCM8643 ####[address] [address] PT/APTT/INRon 07-05-2024 aPTT Coag (PPP) [Time] 36.7 s High 25.5 - 35.9 s [facility] Interpretation and review of laboratory results Abnormal [facility] Albumin, Body Fluidon 2023 Albumin, Body Fluid 437 mg/dL Normal [facility] Comment on above: Order Comment: ascit es Result Comment: INTE RPRETIVE INFORMATION: Albumin, Body FluidA reference interval has not been established for body fluidspecimens.This test was developed and its performance characteristicsdetermined by [facility]. It has not been cleared orapproved by the U.S. Food and Drug Administration. This test wasperformed in a CLIA-certified laboratory and is intended forclinical purposes.Performed By: [facility] [place] [address]Wcdmqkicib Director: Elvin Diaz MD, PhDCLIA Number: [id number] Performed By: #### L UA8300, HXH5915, SMD8650, MFP4289, TND4519 ####[place] [address] Source: Ascites Normal [facility] Comment on above: Order Comment: ascit es Result Comment: Coni ected result;Previously reported as [facility], by V/AUT at 14:08 on07/02/24 Performed By: #### L RK4952, DXG8194, AXX1601, DCP9896, TOA1980 ####[place] [address] CBC w/ Differentialon 2023 Basophil Abs. 0.0 10*3/uL Normal 0.0-0.1 [facility] Comment on above: Performed By: #### L DM9377, ZNW2622, MQK7594, HXI0642 ####[place] [address] Basophils/100 WBC (Bld) 0.4 % Normal 0.0-1.0 [facility] Comment on above: Performed By: #### L JV5988, WTB0949, PWP6539, YVP7120 ####[place] [address] Differential type Auto Normal [facility] Comment on above: Performed By: #### L DL4729, VGD5040, BSS5823, KNB3791 ####[place] [address] Eosinophils (Bld) [#/Vol] 0.3 10*3/uL Normal 0.0-0.5 [facility] Comment on above: Performed By: #### L KD0697, CFY7270, IOF1937, EJL9826 ####[place] [address] Eosinophils/100 WBC (Bld) 5.2 % High 0.3-5.0 [facility] Comment on above: Performed By: #### L CX8453, VUQ5409, WME1884, ETU4110 ####[address] [address] Erythrocyte distribution width (RBC) [Ratio] 16.6 % Normal 10.7-18.7 [facility] Comment on above: Performed By: #### L XQ0926, YIH0402, NKM1432, PHC1933 ####[place] [address] Hematocrit (Bld) [Volume fraction] 34.1 % Normal 33.0-51.0 [facility] Comment on above: Performed By: #### L PR2419, XFQ7027, OMQ1296, DIQ4756 ####[place] [address] Hemoglobin (Bld) [Mass/Vol] 11.1 g/dL Low 12.0-16.0 [facility] Comment on above: Performed By: #### L NS7495, JFA5569, BCI4572, RMS9551 ####[address] [address] Lymphocytes (Bld) [#/Vol] 0.8 10*3/uL Low 1.1-5.0 [facility] Comment on above: Performed By: #### L BV3712, AFW4220, HGX5013, MWM3966 ####[address] [address] Lymphocytes/100 WBC (Bld) 14.0 % Low 24.0-44.0 [facility] Comment on above: Performed By: #### L AC9669, WHH1910, BPB2309, IXD7363 ####[address] [address] MCH (RBC) [Entitic mass] 31.0 pg Normal 26.0-34.0 [facility] Comment on above: Performed By: #### L YI9456, WLY0394, YNS1624, ZYX3356 ####[place] [address] MCHC (RBC) [Mass/Vol] 32.5 g/dL Normal 32.0-36.0 [facility] Comment on above: Performed By: #### L AH4235, ORG5311, HIN5562, BPS3483 ####[place] [address] MCV (RBC) [Entitic vol] 95.2 fL Normal 80.0-100.0 [facility] Comment on above: Performed By: #### L ON1566, NPS1636, PRB6930, MTW0908 ####[place] [address] Monocytes (Bld) [#/Vol] 0.5 10*3/uL Normal 0.0-1.4 [facility] Comment on above: Performed By: #### L HP6881, KQN6781, BFP4131, CIT2635 ####[place] [address] Monocytes/100 WBC (Bld) 8.0 % Normal 2.1-13.3 [facility] Comment on above: Performed By: #### L VX3541, RZJ7047, HBM4661, XFH4256 ####[address] [address] Neutrophils, Abs. 4.2 10*3/uL Normal 1.5-8.5 [facility] Comment on above: Performed By: #### L JU3735, XCW3410, EHF7029, WGO0599 ####[place] [address] Neutrophils/100 WBC (Bld) 72.4 % High 35.0-66.0 [facility] Comment on above: Performed By: #### L WJ9468, ZQB6556, RUC0754, SIM4161 ####[place] [address] Platelet Cnt 64 10*3/uL Low 150-450 [facility] Comment on above: Performed By: #### L ZL9762, YTM5486, DFO2109, STO5147 ####[place] [address] Platelet mean volume (Bld) [Entitic vol] 9.2 fL Normal 6.5-10.0 [facility] Comment on above: Performed By: #### L VP2962, NLM5824, WUS8457, QKB5045 ####[place] [address] RBC (Bld) [#/Vol] 3.58 10*6/uL Low 4.00-5.20 [facility] Comment on above: Performed By: #### L OG2411, QRQ9003, POB0182, KNS8958 ####[place] [address] WBC (Bld) [#/Vol] 5.9 10*3/uL Normal 4.5-11.0 [facility] Comment on above: Performed By: #### L XI6997, KOD2897, CPJ7062, OVI0269 ####[facility] [address] [place] [address] CBC w/Differentialon 024 Basophils (Bld) [#/Vol] 0.0 10*3/uL 0.0 - 0.1 10*3/uL [facility] Basophils/100 WBC (Bld) 0.4 % 0.0 - 1.0 % [facility] Differential cell count method Nom (Bld) Auto [facility] Eosinophils (Bld) [#/Vol] 0.3 10*3/uL 0.0 - 0.5 10*3/uL [facility] Eosinophils/100 WBC (Bld) 5.2 % High 0.3 - 5.0 % [facility] Erythrocyte distribution width (RBC) [Ratio] 16.6 % 10.7 - 18.7 % [facility] Hematocrit (Bld) [Volume fraction] 34.1 % 33.0 - 51.0 % [facility] Hemoglobin (Bld) [Mass/Vol] 11.1 g/dL Low 12.0 - 16.0 g/dL [facility] Interpretation and review of laboratory results Abnormal [facility] Lymphocytes (Bld) [#/Vol] 0.8 10*3/uL Low 1.1 - 5.0 10*3/uL [facility] Lymphocytes/100 WBC (Bld) 14.0 % Low 24.0 - 44.0 % [facility] MCH (RBC) [Entitic mass] 31.0 pg 26.0 - 34.0 pg [facility] MCHC (RBC) [Mass/Vol] 32.5 g/dL 32.0 - 36.0 g/dL [facility] MCV (RBC) [Entitic vol] 95.2 fL 80.0 - 100.0 fL [facility] Monocytes (Bld) [#/Vol] 0.5 10*3/uL 0.0 - 1.4 10*3/uL [facility] Monocytes/100 WBC (Bld) 8.0 % 2.1 - 13.3 % [facility] Neutrophils (Bld) [#/Vol] 4.2 10*3/uL 1.5 - 8.5 10*3/uL [facility] Neutrophils/100 WBC (Bld) 72.4 % High 35.0 - 66.0 % [facility] Platelet mean volume (Bld) [Entitic vol] 9.2 fL 6.5 - 10.0 fL [facility] Platelets (Bld) [#/Vol] 64 10*3/uL Low 150 - 450 10*3/uL [facility] RBC (Bld) [#/Vol] 3.58 10*6/uL Low 4.00 - 5.2 0 10*6/uL [facility] WBC (Bld) [#/Vol] 5.9 10*3/uL 4.5 - 11.0 10*3/uL [facility] COMPREHENSIVE METABOLIC PANE [place] 07-02-2024 Albumin [Mass/Vol] 3.0 g/dL Low 3.2-5.0 [facility] Comment on above: Performed By: #### L LM9695, ZEN0329, OWT1464, TUS5485 ####[place] [address] Albumin/Globulin [Mass ratio] 0.8 {ratio} Normal [facility] Comment on above: Performed By: #### L EZ7653, CFR2849, CQP2990, GNW6407 ####[place] [address] ALP [Catalytic activity/Vol] 107 U/L Normal 42-121 [facility] Comment on above: Performed By: #### L RU3624, FPR3770, ZRJ5696, IAW7757 ####[place] [address] ALT [Catalytic activity/Vol] 54 U/L Normal 10-60 [facility] Comment on above: Performed By: #### L AA2025, TYL9998, SIJ2939, VAP6637 ####[place] [address] Anion gap [Moles/Vol] 2 mmol/L Normal [facility] Comment on above: Performed By: #### L PH8894, JHO7147, XQT6677, ATQ6255 ####[place] [address] AST [Catalytic activity/Vol] 96 U/L High 10-42 [facility] Comment on above: Performed By: #### L PO8075, LRF7641, TEO6399, PZW8590 ####[place] [address] B/C 14 Normal 10-20 [facility] Comment on above: Performed By: #### L LW4741, HDK3042, KAI1476, AOF3371 ####[place] [address] Bilirubin.direct [Mass/Vol] 1.7 mg/dL High 0.2-1.0 [facility] Comment on above: Performed By: #### L YW3487, THC7211, WKE4667, MED1410 ####[facility] [address] [place] [address] Calcium [Mass/Vol] 8.6 mg/dL Normal 8.5-10.5 [facility] Comment on above: Performed By: #### L CL1273, PCB2263, FYJ2375, LIO9591 ####[facility] [address] [place] [address] Chloride [Moles/Vol] 112 mmol/L High 101-111 [facility] Comment on above: Performed By: #### L NM0959, CPA3752, HYY7298, GHQ2565 ####[facility] [address] [place] [address] CO2 [Moles/Vol] 25 mmol/L Normal 21-31 [facility] Comment on above: Performed By: #### L ZE0271, DZZ9313, NTG0337, XNN3002 ####[facility] [address] [place] [address] Creatinine [Mass/Vol] 0.8 mg/dL Normal 0.4-1.0 [facility] Comment on above: Performed By: #### L ZL0707, AYI8207, LXY0516, XOT9224 ####[facility] [address] [place] [address] GFR/1.73 sq M.predicted MDRD (S/P/Bld) [Vol rate/Area] 76 mL/min/{1.73_m2} Normal [facility] Comment on above: Result Comment: *The estimated Glomerular Filtration Rate(EGFR) may not be accurate for children under the age of 18 yrs. To estimate the GFR for -Americans multiply the result provided by 1.21.Stage 1 90 mL/min or greaterStage 2 60-89 mL/minStage 3 30-59 mL/minStage 4 15-29 mL/minStage 5 14 mL/min or less Performed By: #### L JZ3221, DCU2183, ANJ3338, RZY7554 ####[facility] [address] [place] [address] Glucose [Mass/Vol] 121 mg/dL High 70-110 [facility] Comment on above: Performed By: #### L UX7628, YJV2075, ZMR6312, XKJ5854 ####[place] [address] Osmolality [Osmolality] 278 mosm/kg Normal 266-309 [facility] Comment on above: Performed By: #### L NQ5354, WNU8056, MQT8141, RGR6372 ####[place] [address] Potassium [Moles/Vol] 3.9 mmol/L Normal 3.6-5.0 [facility] Comment on above: Performed By: #### L FU5736, PKO2247, MEB7049, SOV3091 ####[place] [address] Protein [Mass/Vol] 6.7 g/dL Normal 6.1-7.8 [facility] Comment on above: Performed By: #### L BU0380, UFX7416, CQJ8371, GAI5208 ####[place] [address] Sodium [Moles/Vol] 139 mmol/L Normal 135-145 [facility] Comment on above: Performed By: #### L BG1108, XCK3470, BMR5887, RKG6851 ####[place] [address] Urea nitrogen [Mass/Vol] 11 mg/dL Normal 2-32 [facility] Comment on above: Performed By: #### L LF2471, QRW1409, YBO9106, SKI4145 ####[place] [address] Comprehensive Metabolic Pane m[facility]itt 07-02-2024 Albumin [Mass/Vol] 3.0 g/dL Low 3.2 - 5.0 g/dL [facility] Albumin/Globulin [Mass ratio] 0.8 {ratio} [facility] ALP [Catalytic activity/Vol] 107 U/L 42 - 121 [iU]/L [facility] ALT [Catalytic activity/Vol] 54 U/L 10 - 60 [iU]/L [facility] Anion gap [Moles/Vol] 2 mmol/L [facility] AST [Catalytic activity/Vol] 96 U/L High 10 - 42 [iU]/L [facility] Bilirubin [Mass/Vol] 1.7 mg/dL High 0.2 - 1 .0 mg/dL [facility] Calcium [Mass/Vol] 8.6 mg/dL 8.5 - 10. 5 mg/dL [facility] Chloride [Moles/Vol] 112 mmol/L High 101 - 1 11 mmol/L [facility] CO2 [Moles/Vol] 25 mmol/L 21 - 31 mmol/L [facility] Creatinine [Mass/Vol] 0.8 mg/dL 0.4 - 1.0 mg/dL [facility] GFR/1.73 sq M.predicted MDRD (S/P/Bld) [Vol rate/Area] 76 mL/min/{1.73_m2} [facility] Comment on above: *The estimated Glome rular Filtration Rate(EGFR) may not be accurate for children under the age of 18 yrs. To estimate the GFR for -Americans multiply the result provided by 1.21. Stage 1 90 mL/min or greater Stage 2 60-89 mL/min Stage 3 30-59 mL/min Stage 4 15-29 mL/min Stage 5 14 mL/min or less Glucose [Mass/Vol] 121 mg/dL High 70 - 110 mg/dL [facility] Interpretation and review of laboratory results Abnormal [facility] Osmolality Calc [Osmolality] 278 266 - 309 [facility] Potassium [Moles/Vol] 3.9 mmol/L 3.6 - 5.0 mmol/L [facility] Protein [Mass/Vol] 6.7 g/dL 6.1 - 7.8 g/dL [facility] Sodium [Moles/Vol] 139 mmol/L 135 - 145 mmol/L [facility] Urea nitrogen [Mass/Vol] 11 mg/dL 2 - 32 mg/dL [facility] Urea nitrogen/Creatinine [Mass ratio] 14 mg/mg 10 - 20 [facility] FLUID CELL COUNTon 4 Character (U) Clear [facility] Comment on above: Performed By: #### L VL3116 ####[place] [address] Color (U) Yellow [facility] Comment on above: Performed By: #### L AP1017 ####[place] [address] FLD COMMENT see below [facility] Comment on above: Result Comment: Refe rence ranges & other method performance specifications have not beenestablished for this body fluid type. The test result must be integratedinto the clinical context for interpretation. Performed By: #### L VG8794 ####[place] [address] RBC 587 uL [facility] Comment on above: Performed By: #### L DW0482 ####[place] [address] SOURCE Ascites [facility] Comment on above: Performed By: #### L ER7754 ####[place] [address] TOTAL NUC. CELLS 97 uL [facility] Comment on above: Result Comment: RESU LTS OF COUNT MAY BE INACCURATE IF SPECIMEN IS PARTIALLYCLOTTED OR EXHIBIT CELL CLUMPING. Performed By: #### L IS7707 ####[place] [address] TUBE NUMBER Syringe [facility] Comment on above: Performed By: #### L HJ6096 ####[place] [address] VOLUME 60.0 [facility] Comment on above: Performed By: #### L MW2238 ####[place] [address] FLUID CULTUREon 07-02-2024 FLUID CULTURE Bacteria identified in Body fluid by Culture FLUID CULTURE: No growth. Microscopic observation [Identifier] in Specimen by Gram stain GRAM STAIN SMEAR: Few WBC'S. No organisms seen. [facility] Comment on above: Performed By: #### L XE3773 ####[facility] [address] [place] [address] GLUCOSE, FLUIDon 07-02-2024 GLUCOSE, FLUID 138 mg/dL Normal [facility] Comment on above: Order Comment: ascit es Result Comment: Refe rence ranges & other method performance specifications have not beenestablished for this body fluid type. The test result must be integratedinto the clinical context for interpretation. Performed By: #### L VU2954, QER0729, MNP9168, SAK6681, DBV8219 ####[facility] [address] [place] [address] Glucose Body Fluidon 024 Glucose (Body fld) [Mass/Vol] 138 mg/dL [facility] Comment on above: Reference ranges & o ther method performance specifications have not been established for this body fluid type. The test result must be integrated into the clinical context for interpretation. HEPATITIS PANEL ACUTEon HEPATITIS C AB Reactive Abnormal Negative [facility] Comment on above: Result Comment: Conf irmatory testing is recommended and is available at [facility](order [id number]). Performed By: #### L XF2770 ####[place] [address] HEP B CORE AB IGM Negative Normal Negative [facility] Comment on above: Performed By: #### L LO0040 ####[place] [address] HEPATITIS A AB IGM Negative Normal Negative [facility] Comment on above: Performed By: #### L RD0511 ####[facility] [address] [place] [address] HEP B SURFACE AG Negative Normal Negative [facility] Comment on above: Performed By: #### L YY9530 ####[place] [address] Hepatitis Panelon 07-02-2024 HAV IgM IA Ql Negative Negative [facility] HBV core IgM IA Qn Negative Negative [facility] HBV surface Ag IA Ql Negative Negative [facility] HCV Ab IA Ql Reactive Abnormal Negative [facility] Comment on above: Confirmatory testing is recommended and is available at [facility] (order [id number]). Interpretation and review of laboratory results Abnormal [facility] LDH, FLUIDon 07-02-2024 LDH FLUID 46 [iU]/L Low 60-160 [facility] Comment on above: Order Comment: ascit es Performed By: #### L RB5977, KVD4485, FNZ2523, RPZ1437, ATL5927 ####BABAT[place] [address] [place] [address] LDH, Fluidon 07-02-2024 Interpretation and review of laboratory results Abnormal [facility] LDH (Body fld) [Catalytic activity/Vol] 46 [iU]/L Low 60 - 160 [iU]/L [facility] LIPASEon 07-02-2024 Lipase [Catalytic activity/Vol] 41 U/L Normal -82 [facility] Comment on above: Performed By: #### L JP1611, XKO3886, WHE3494, KXA0924 ####[place] [address] Lipaseon 07-02-2024 Lipase [Catalytic activity/Vol] 41 U/L 11 - 82 U/L [facility] NON HOME CHILD CARE PROVIDER CASESon 07-02-2024 NON HOME CHILD CARE PROVIDER CASES Normal [facility] Comment on above: Performed By: #### L NN5969 ####[place] [address] No Panel Informationon 07-02 ascites [facility] PH, FLUIDon 07-02-2024 PH, FLUID 7.7 Normal [facility] Comment on above: Order Comment: ascit es Performed By: #### L PS6367, HDW9550, BRF9737, MAG7955, XRQ5967 ####BABATUNDE Beason [address] [place] [address] SOURCE ascites Normal [facility] Comment on above: Order Comment: ascit es Performed By: #### L OD9271, UNA2323, QXT5758, XIO5051, NZL2903 ####[facility] [address] [place] [address] PROTEIN, FLUIDon 07-02-2024 SOURCE ascites Normal [facility] Comment on above: Order Comment: ascit es Performed By: #### L AK5752, XPX4143, ADX9011, SBY0672, FKR6501 ####[facility] [address] [place] [address] PROTEIN, FLUID 3.0 g/dL Normal [facility] Comment on above: Order Comment: ascit es Result Comment: Refe rence ranges & other method performance specifications have not beenestablished for this body fluid type. The test result must be integratedinto the clinical context for interpretation. Performed By: #### L ST4161, TTG4154, KOM7479, XQH7682, IVT5699 ####BABATUNDE Be[place] [address] [place] [address] PT AND APTTon 07-02-2024 aPTT Coag (Bld) [Time] 37.1 s High 25.5-35.9 [facility] Comment on above: Performed By: #### L NW6922, CMI9136, VHD4664, TVA8258 ####[facility] [address] [place] [address] INR Coag (PPP) [Relative time] 1.4 {INR} High 0.9-1.1 [facility] Comment on above: LEVEL OF THERAPY IND ICATIONS TARGET INR RANGE STANDARD DOSE TREATMENT OF VENOUS THROMBOSIS 2.0-3.0 TREATMENT OF PULMONARY EMBOLUS PROPHYLAXIS AGAINST VENOUS THROMBOSIS BY SYSTEMIC EMBOLIZATION . HIGH DOSE HIGH RISK PATIENTS WITH 2.5-3.5 [facility] Result Comment: LEVE L OF THERAPY INDICATIONS TARGET INR RANGESTANDARD DOSE TREATMENT OF VENOUS THROMBOSIS 2.0-3.0 TREATMENT OF PULMONARY EMBOLUS PROPHYLAXIS AGAINST VENOUS THROMBOSIS BY SYSTEMIC EMBOLIZATION .HIGH DOSE HIGH RISK PATIENTS WITH 2.5-3.5 [facility] VALVES Performed By: #### L [id number], [id number], FCC9244, [id number] ####BABATUNDE Beason [address] [place] [address] PT Coag (PPP) [Time] 17.3 s High 10.1-13.7 [facility] Comment on above: Performed By: #### L [id number], [id number], DJW7106, [id number] ####[facility] [address] [place] [address] PT/APTT/INRon 07-02-2024 aPTT Coag (PPP) [Time] 37.1 s High 25.5 - 35.9 s [facility] Interpretation and review of laboratory results Abnormal [facility] Ph Body Fluidon 07-02-2024 pH (Body fld) 7.7 [pH] [facility] Specimen source Nom (Body fld) ascites [facility] ascites [facility] Protein Body Fluidon 024 Protein (Body fld) [Mass/Vol] 3.0 g/dL [facility] Comment on above: Reference ranges & o ther method performance specifications have not been established for this body fluid type. The test result must be integrated into the clinical context for interpretation. Specimen source Nom (Body fld) ascites [facility] ascites [facility] VASCULAR PROCEDUREon 024 VASCULAR PROCEDURE Normal [facility] Vascular Procedureon 024 [facility] Radiology Study observation (narrative) [facility] Gastroenterology Visit Repor ton 06-22-2024 Gastroenterology Visit Report Normal [facility] Gastric Emptying Studyon Gastric Emptying Study Normal [facility] MR/PN.GIon 06-19-2024 MR/PN.GI Normal [facility] Abdomen Limitedon 06-18-2024 Abdomen Limited Normal [facility] Abdomen Single View (Portabl e)on 06-18-2024 Abdomen Single View (Portable) Normal [facility] CBC-Complete Blood Cnt No Di ffon 06-18-2024 HCT Normal 37-[address] [facility] Comment on above: Result Comment: Ed ortiz via OM: Ordered Performed By: #### L 500.4050, L100.0500 ####[facility] [address] [place], [place], [id number] HGB Normal 12.0-15.[address] [facility] Comment on above: Result Comment: Canc elled via OM: MD Ordered Performed By: #### L 500.4050, L100.0500 ####[facility] [address] [place], [address] MCH Normal 27.0-32.[address] [facility] Comment on above: Result Comment: Canc elled via OM: MD Ordered Performed By: #### L 500.4050, L100.0500 ####[facility] [address] [place], [address] MCHC Normal 32-[address] [facility] Comment on above: Result Comment: Canc elled via OM: MD Ordered Performed By: #### L 500.4050, L100.0500 ####[facility] [address] [place], [address] MCV Normal 81-[address] [facility] Comment on above: Result Comment: Canc elled via OM: MD Ordered Performed By: #### L 500.4050, L100.0500 ####[facility] [address] [place], [address] PLT Normal 150-[address] [facility] Comment on above: Result Comment: Canc elled via OM: MD Ordered Performed By: #### L 500.4050, L100.0500 ####[facility] [address] [place], [address] RBC Normal 4.2-5.[address] [facility] Comment on above: Result Comment: Canc elled via OM: MD Ordered Performed By: #### L 500.4050, L100.0500 ####[facility] [address] [place], [address] RDW CV Normal 11.6-14.[address] [facility] Comment on above: Result Comment: Canc elled via OM: MD Ordered Performed By: #### L 500.4050, L100.0500 ####[facility] [address] [place], [address] RDW SD Normal 35.1-43.[address] [facility] Comment on above: Result Comment: Canc elled via OM: MD Ordered Performed By: #### L 500.4050, L100.0500 ####[facility] [address] [place], [address] WBC Normal 4.4-11.[address] [facility] Comment on above: Result Comment: Canc elled via OM: MD Ordered Performed By: #### L 500.4050, L100.0500 ####[facility] [address] [place], [address] Comprehensive Metabolic Prof ilon 06-18-2024 ALB Normal 3.2-5.[address] [facility] Comment on above: Result Comment: Canc elled via OM: MD Ordered Performed By: #### L 500.4050, L100.0500 ####[facility] [address] [place], [address] ALK P Normal 45-[address] [facility] Comment on above: Result Comment: Canc elled via OM: MD Ordered Performed By: #### L 500.4050, L100.0500 ####[facility] [address] [place], [address] ALT Normal 13-[address] [facility] Comment on above: Result Comment: Canc elled via OM: MD Ordered Performed By: #### L 500.4050, L100.0500 ####[facility] [address] [place], [address] AST Normal 15-[address] [facility] Comment on above: Result Comment: Canc elled via OM: MD Ordered Performed By: #### L 500.4050, L100.0500 ####[facility] [address] [place], [address] BUN Normal 7-[address] [facility] Comment on above: Result Comment: Canc elled via OM: MD Ordered Performed By: #### L 500.4050, L100.0500 ####[facility] [address] [place], [address] BUN/CRE Normal 10-[address] [facility] Comment on above: Result Comment: Canc elled via OM: MD Ordered Performed By: #### L 500.4050, L100.0500 ####[facility] [address] [place], [address] CA,Total Normal 8.5-10.[address] [facility] Comment on above: Result Comment: Canc elled via OM: MD Ordered Performed By: #### L 500.4050, L100.0500 ####[facility] [address] [place], [address] CL Normal 98-[address] [facility] Comment on above: Result Comment: Canc elled via OM: MD Ordered Performed By: #### L 500.4050, L100.0500 ####[facility] [address] [place], [address] CO2 Normal 21.0-32.[address] [facility] Comment on above: Result Comment: Canc elled via OM: MD Ordered Performed By: #### L 500.4050, L100.0500 ####[facility] [address] [place], [address] CREAT,SERUM Normal 0.55-1.[address] [facility] Comment on above: Result Comment: Canc elled via OM: MD Ordered Performed By: #### L 500.4050, L100.0500 ####[facility] [address] [place], [address] EST GFR Normal >[address] [facility] Comment on above: Result Comment: Canc elled via OM: MD Ordered Performed By: #### L 500.4050, L100.0500 ####[facility] [address] [place], [address] EST GFR - AA Normal >[address] [facility] Comment on above: Result Comment: Canc elled via OM: MD Ordered Performed By: #### L 500.4050, L100.0500 ####[facility] [address] [place], [address] GAP Normal 5-[address] [facility] Comment on above: Result Comment: Canc elled via OM: MD Ordered Performed By: #### L 500.4050, L100.0500 ####[facility] [address] [place], [address] GLU Normal 74-[address] [facility] Comment on above: Result Comment: Canc elled via OM: MD Ordered Performed By: #### L 500.4050, L100.0500 ####[facility] [address] [place], [address] Potassium Normal 3.5-5.[address] [facility] Comment on above: Result Comment: Canc elled via OM: MD Ordered Performed By: #### L 500.4050, L100.0500 ####[facility] [address] [place], [address] T BILI Normal 0.20-1.[address] [facility] Comment on above: Result Comment: Canc elled via OM: MD Ordered Performed By: #### L 500.4050, L100.0500 ####[facility] [address] [place], [address] T PROT Normal 6.4-8.[address] [facility] Comment on above: Result Comment: Canc elled via OM: MD Ordered Performed By: #### L 500.4050, L100.0500 ####[facility] [address] [place], [address] Comprehensive Metabolic Profil Normal 136-[address] [facility] Comment on above: Result Comment: Ed ortiz via OM: Ordered Performed By: #### L 500.4050, L100.0500 ####[facility] [address] [place], [address] MR/CON.PCM.GIon 06-18-2024 MR/CON.PCM.GI Normal [facility] CBC-Complete Blood Cnt No Di ffon 06-17-2024 Erythrocyte distribution width (RBC) [Ratio] 17.2 % High 11.6-14.[address] [facility] Comment on above: Performed By: #### L 100.0500, L500.4050 ####[facility] [address] [place], [address] Hematocrit (Bld) [Volume fraction] 34.4 % Low 37-[address] [facility] Comment on above: Performed By: #### L 100.0500, L500.4050 ####[facility] [address] [place], [address] Hemoglobin (Bld) [Mass/Vol] 11.3 g/dL Low 12.0-15.[address] [facility] Comment on above: Performed By: #### L 100.0500, L500.4050 ####[facility] [address] [place], [address] MCH (RBC) [Entitic mass] 30.4 pg Normal 27.0-32.[address] [facility] Comment on above: Performed By: #### L 100.0500, L500.4050 ####[facility] [address] [place], [address] MCHC (RBC) [Mass/Vol] 32.8 g/dL Normal 32-36 [facility] Comment on above: Performed By: #### L 100.0500, L500.4050 ####[facility] [address] [place], [address] MCV (RBC) [Entitic vol] 92.5 fL Normal 81-[address] [facility] Comment on above: Performed By: #### L 100.0500, L500.4050 ####[facility] [address] [place], [address] Platelet mean volume (Bld) [Entitic vol] 10.6 fL Normal 6.2-12.[address] [facility] Comment on above: Performed By: #### L 100.0500, L500.4050 ####[facility] [address] [place], [address] Platelets (Bld) [#/Vol] 72 10*3/uL Low 150-[address] [facility] Comment on above: Performed By: #### L 100.0500, L500.4050 ####[facility] [address] [place], [address] RBC (Bld) [#/Vol] 3.72 10*6/uL Low 4.2-5.4 [facility] Comment on above: Performed By: #### L 100.0500, L500.4050 ####[facility] [address] [place], [address] RDW SD 57.7 fl High 35.1-43.[address] [facility] Comment on above: Performed By: #### L 100.0500, L500.4050 ####[facility] [address] [place], [address] WBC (Bld) [#/Vol] 7.2 10*3/uL Normal 4.4-11.0 [facility] Comment on above: Performed By: #### L 100.0500, L500.4050 ####[facility] [address] [place], [address] Comprehensive Metabolic Prof ilon 06-17-2024 Albumin [Mass/Vol] 2.6 g/dL Low 3.2-5.0 [facility] Comment on above: Performed By: #### L 100.0500, L500.4050 ####[facility] [address] [place], [address] Albumin/Globulin [Mass ratio] 0.7 {ratio} Low 0.9-2.[address] [facility] Comment on above: Performed By: #### L 100.0500, L500.4050 ####[facility] [address] [place], [address] ALK P 134 U/L High 45-[address] [facility] Comment on above: Performed By: #### L 100.0500, L500.4050 ####[facility] [address] [place], [address] ALT [Catalytic activity/Vol] 56 U/L Normal 13-[address] [facility] Comment on above: Performed By: #### L 100.0500, L500.4050 ####[facility] [address] [place], [address] AST [Catalytic activity/Vol] 76 U/L High 15-[address] [facility] Comment on above: Performed By: #### L 100.0500, L500.4050 ####[facility] [address] [place], [address] Bilirubin [Mass/Vol] 2.00 mg/dL High 0.20-1.00 [facility] Comment on above: Result Comment: For patients on eltrombopag therapy, use of Dimension [place] TBIL is not recommended. Performed By: #### L 100.0500, L500.4050 ####[facility] [address] [place], [address] BUN/CRE 8.5 RATIO Low 10-[address] [facility] Comment on above: Performed By: #### L 100.0500, L500.4050 ####[facility] [address] [place], [address] CA,Total 8.6 mg/dL Normal 8.5-10.[address] [facility] Comment on above: Performed By: #### L 100.0500, L500.4050 ####[facility] [address] [place], [address] Chloride [Moles/Vol] 114 mmol/L High 98-107 [facility] Comment on above: Performed By: #### L 100.0500, L500.4050 ####[facility] [address] [place], [address] CO2 [Moles/Vol] 23.0 mmol/L Normal 21.0-32.[address] [facility] Comment on above: Performed By: #### L 100.0500, L500.4050 ####[facility] [address] [place], [address] Creatinine [Mass/Vol] 0.82 mg/dL Normal 0.55-1.02 [facility] Comment on above: Result Comment: The validity of the calculated GFR GFRAA in patients over70 years has not been determined. Clinical correlation isessential. Performed By: #### L 100.0500, L500.4050 ####[facility] [address] [place], [address] ECRCL 78.86 ml/min Normal [facility] Comment on above: Performed By: #### L 100.0500, L500.4050 ####[facility] [address] [place], [address] EST GFR - AA 94 mL/min Normal >[address] [facility] Comment on above: Result Comment: Afri can [place] GFR Calc Performed By: #### L 100.0500, L500.4050 ####[facility] [address] [place], [address] GAP 3 Low 5-[address] [facility] Comment on above: Performed By: #### L 100.0500, L500.4050 ####[facility] [address] [place], [address] GFR/1.73 sq M.predicted among non-blacks MDRD (S/P/Bld) [Vol rate/Area] 78 mL/min/{1.73_m2} Normal >[address] [facility] Comment on above: Result Comment: Non- GFR Calc Performed By: #### L 100.0500, L500.4050 ####[facility] [address] [place], [address] Globulin (S) [Mass/Vol] 3.6 g/dL Normal 2.2-4.[address] [facility] Comment on above: Performed By: #### L 100.0500, L500.4050 ####[facility] [address] [place], [address] Glucose [Mass/Vol] 112 mg/dL High 74-106 [facility] Comment on above: Result Comment: Fast ing Glucose result from 100 to 125 mg/dLsuggests IMPAIRED HOMEOSTASIS per A.D.A. criteria. Performed By: #### L 100.0500, L500.4050 ####[facility] [address] [place], [address] Potassium [Moles/Vol] 3.7 mmol/L Normal 3.5-5.1 [facility] Comment on above: Performed By: #### L 100.0500, L500.4050 ####[facility] [address] [place], [address] Sodium [Moles/Vol] 140 mmol/L Normal 136-145 [facility] Comment on above: Performed By: #### L 100.0500, L500.4050 ####[facility] [address] [place], [address] T PROT 6.2 g/dL Low 6.4-8.[address] [facility] Comment on above: Performed By: #### L 100.0500, L500.4050 ####[facility] [address] [place], [id number] Urea nitrogen [Mass/Vol] 7 mg/dL Normal 7-[address] [facility] Comment on above: Performed By: #### L 100.0500, L500.4050 ####[facility] [address] [place], [address] CBC-Complete Blood Cnt No Di ffon 06-16-2024 Erythrocyte distribution width (RBC) [Ratio] 17.2 % High 11.6-14.[address] [facility] Comment on above: Performed By: #### L 300.3900, L500.4050, L100.0500 ####[facility] [address] [place], [address] Hematocrit (Bld) [Volume fraction] 32.5 % Low 37-[address] [facility] Comment on above: Performed By: #### L 300.3900, L500.4050, L100.0500 ####[facility] [address] [place], [address] Hemoglobin (Bld) [Mass/Vol] 10.7 g/dL Low 12.0-15.[address] [facility] Comment on above: Performed By: #### L 300.3900, L500.4050, L100.0500 ####[facility] [address] [place], [address] MCH (RBC) [Entitic mass] 30.3 pg Normal 27.0-32.[address] [facility] Comment on above: Performed By: #### L 300.3900, L500.4050, L100.0500 ####[facility] [address] [place], [address] MCHC (RBC) [Mass/Vol] 32.9 g/dL Normal 32-36 [facility] Comment on above: Performed By: #### L 300.3900, L500.4050, L100.0500 ####[facility] [address] [place], [address] MCV (RBC) [Entitic vol] 92.1 fL Normal 81-[address] [facility] Comment on above: Performed By: #### L 300.3900, L500.4050, L100.0500 ####[facility] [address] [place], [address] Platelet mean volume (Bld) [Entitic vol] 11.1 fL Normal 6.2-12.[address] [facility] Comment on above: Performed By: #### L 300.3900, L500.4050, L100.0500 ####[facility] [address] [place], [address] Platelets (Bld) [#/Vol] 64 10*3/uL Low 150-[address] [facility] Comment on above: Performed By: #### L 300.3900, L500.4050, L100.0500 ####[facility] [address] [place], [address] RBC (Bld) [#/Vol] 3.53 10*6/uL Low 4.2-5.4 [facility] Comment on above: Performed By: #### L 300.3900, L500.4050, L100.0500 ####[facility] [address] [place], [address] RDW SD 56.8 fl High 35.1-43.[address] [facility] Comment on above: Performed By: #### L 300.3900, L500.4050, L100.0500 ####[facility] [address] [place], [address] WBC (Bld) [#/Vol] 6.8 10*3/uL Normal 4.4-11.0 [facility] Comment on above: Performed By: #### L 300.3900, L500.4050, L100.0500 ####[facility] [address] [place], [address] Comprehensive Metabolic [facility] ilon 06-16-2024 Albumin [Mass/Vol] 2.6 g/dL Low 3.2-5.0 [facility] Comment on above: Performed By: #### L 300.3900, L500.4050, L100.0500 ####[facility] [address] [place], [address] Albumin/Globulin [Mass ratio] 0.8 {ratio} Low 0.9-2.[address] [facility] Comment on above: Performed By: #### L 300.3900, L500.4050, L100.0500 ####[facility] [address] [place], [address] ALK P 127 U/L High 45-[address] [facility] Comment on above: Performed By: #### L 300.3900, L500.4050, L100.0500 ####[facility] [address] [place], [address] ALT [Catalytic activity/Vol] 57 U/L High 13-[address] [facility] Comment on above: Performed By: #### L 300.3900, L500.4050, L100.0500 ####[facility] [address] [place], [address] AST [Catalytic activity/Vol] 75 U/L High 15-[address] [facility] Comment on above: Performed By: #### L 300.3900, L500.4050, L100.0500 ####[facility] [address] [place], [address] Bilirubin [Mass/Vol] 1.60 mg/dL High 0.20-1.00 [facility] Comment on above: Result Comment: For patients on eltrombopag therapy, use of Dimension [place] TBIL is not recommended. Performed By: #### L 300.3900, L500.4050, L100.0500 ####[facility] [address] [place], [address] BUN/CRE 9.7 RATIO Low 10-[address] [facility] Comment on above: Performed By: #### L 300.3900, L500.4050, L100.0500 ####[facility] [address] [place], [address] CA,Total 8.6 mg/dL Normal 8.5-10.[address] [facility] Comment on above: Performed By: #### L 300.3900, L500.4050, L100.0500 ####[facility] [address] [place], [address] Chloride [Moles/Vol] 112 mmol/L High 98-107 [facility] Comment on above: Performed By: #### L 300.3900, L500.4050, L100.0500 ####[facility] [address] [place], [address] CO2 [Moles/Vol] 22.0 mmol/L Normal 21.0-32.[address] [facility] Comment on above: Performed By: #### L 300.3900, L500.4050, L100.0500 ####[facility] [address] [place], [address] Creatinine [Mass/Vol] 0.93 mg/dL Normal 0.55-1.02 [facility] Comment on above: Result Comment: The validity of the calculated GFR GFRAA in patients over70 years has not been determined. Clinical correlation isessential. Performed By: #### L 300.3900, L500.4050, L100.0500 ####[facility] [address] [place], [address] ECRCL 69.53 ml/min Normal [facility] Comment on above: Performed By: #### L 300.3900, L500.4050, L100.0500 ####[facility] [address] [place], [address] EST GFR - AA 82 mL/min Normal >[address] [facility] Comment on above: Result Comment: Afri can [place] GFR Calc Performed By: #### L 300.3900, L500.4050, L100.0500 ####[facility] [address] [place], [address] GAP 6 Normal 5-[address] [facility] Comment on above: Performed By: #### L 300.3900, L500.4050, L100.0500 ####[facility] [address] [place], [address] GFR/1.73 sq M.predicted among non-blacks MDRD (S/P/Bld) [Vol rate/Area] 68 mL/min/{1.73_m2} Normal >[address] [facility] Comment on above: Result Comment: Non- GFR Calc Performed By: #### L 300.3900, L500.4050, L100.0500 ####[facility] [address] [place], [address] Globulin (S) [Mass/Vol] 3.4 g/dL Normal 2.2-4.[address] [facility] Comment on above: Performed By: #### L 300.3900, L500.4050, L100.0500 ####[facility] [address] [place], [address] Glucose [Mass/Vol] 117 mg/dL High 74-106 [facility] Comment on above: Result Comment: Fast ing Glucose result from 100 to 125 mg/dLsuggests IMPAIRED HOMEOSTASIS per A.D.A. criteria. Performed By: #### L 300.3900, L500.4050, L100.0500 ####[facility] [address] [place], [id number] Potassium [Moles/Vol] 3.3 mmol/L Low 3.5-5.1 [facility] Comment on above: Performed By: #### L 300.3900, L500.4050, L100.0500 ####[facility] [address] [place], [id number] Sodium [Moles/Vol] 140 mmol/L Normal 136-145 [facility] Comment on above: Performed By: #### L 300.3900, L500.4050, L100.0500 ####[facility] [address] [place], [id number] T PROT 6.0 g/dL Low 6.4-8.[address] [facility] Comment on above: Performed By: #### L 300.3900, L500.4050, L100.0500 ####[facility] [address] [place], [address] Urea nitrogen [Mass/Vol] 9 mg/dL Normal 7-[address] [facility] Comment on above: Performed By: #### L 300.3900, L500.4050, L100.0500 ####[facility] [address] [place], [address] Prothrombin Time w/INRon INR Coag (PPP) [Relative time] 1.7 {INR} Normal [facility] Comment on above: Performed By: #### L 300.3900, L500.4050, L100.0500 ####[facility] [address] [place], [id number] PT Coag (PPP) [Time] 19.9 s High 11.7-14.9 [facility] Comment on above: Performed By: #### L 300.3900, L500.4050, L100.0500 ####[facility] [address] [place], [id number] Procedure Reporton Procedure Report Normal [facility] CBC-Complete Blood Cnt No Di ffon 06-14-2024 Erythrocyte distribution width (RBC) [Ratio] 16.6 % High 11.6-14.[address] [facility] Comment on above: Performed By: #### L 500.4050, L100.0500 ####[facility] [address] [place], [id number] Hematocrit (Bld) [Volume fraction] 28.0 % Low 37-[address] [facility] Comment on above: Performed By: #### L 500.4050, L100.0500 ####[facility] [address] [place], [address] Hemoglobin (Bld) [Mass/Vol] 9.3 g/dL Low 12.0-15.[address] [facility] Comment on above: Performed By: #### L 500.4050, L100.0500 ####[facility] [address] [place], [address] MCH (RBC) [Entitic mass] 30.5 pg Normal 27.0-32.[address] [facility] Comment on above: Performed By: #### L 500.4050, L100.0500 ####[facility] [address] [place], [id number] MCHC (RBC) [Mass/Vol] 33.2 g/dL Normal 32-36 [facility] Comment on above: Performed By: #### L 500.4050, L100.0500 ####[facility] [address] [place], [address] MCV (RBC) [Entitic vol] 91.8 fL Normal 81-[address] [facility] Comment on above: Performed By: #### L 500.4050, L100.0500 ####[facility] [address] [place], [id number] Platelet mean volume (Bld) [Entitic vol] 10.8 fL Normal 6.2-12.[address] [facility] Comment on above: Performed By: #### L 500.4050, L100.0500 ####[facility] [address] [place], [id number] Platelets (Bld) [#/Vol] 61 10*3/uL Low 150-[address] [facility] Comment on above: Performed By: #### L 500.4050, L100.0500 ####[facility] [address] [place], [id number] RBC (Bld) [#/Vol] 3.05 10*6/uL Low 4.2-5.4 [facility] Comment on above: Performed By: #### L 500.4050, L100.0500 ####[facility] [address] [place], [id number] RDW SD 55.8 fl High 35.1-43.[address] [facility] Comment on above: Performed By: #### L 500.4050, L100.0500 ####[facility] [address] [place], [id number] WBC (Bld) [#/Vol] 10.9 10*3/uL Normal 4.4-11.0 [facility] Comment on above: Performed By: #### L 500.4050, L100.0500 ####[facility] [address] [place], [id number] Comprehensive Metabolic Prof ilon 06-14-2024 Albumin [Mass/Vol] 2.2 g/dL Low 3.2-5.0 [facility] Comment on above: Performed By: #### L 500.4050, L100.0500 ####[facility] [address] [place], [id number] Albumin/Globulin [Mass ratio] 0.7 {ratio} Low 0.9-2.[address] [facility] Comment on above: Performed By: #### L 500.4050, L100.0500 ####[facility] [address] [place], [address] ALK P 124 U/L High 45-[address] [facility] Comment on above: Performed By: #### L 500.4050, L100.0500 ####[facility] [address] [place], [id number] ALT [Catalytic activity/Vol] 54 U/L Normal 13-[address] [facility] Comment on above: Performed By: #### L 500.4050, L100.0500 ####[facility] [address] [place], [address] AST [Catalytic activity/Vol] 78 U/L High 15-[address] [facility] Comment on above: Performed By: #### L 500.4050, L100.0500 ####[facility] [address] [place], [address] Bilirubin [Mass/Vol] 1.40 mg/dL High 0.20-1.00 [facility] Comment on above: Result Comment: For patients on eltrombopag therapy, use of Dimension [place] TBIL is not recommended. Performed By: #### L 500.4050, L100.0500 ####[facility] [address] [place], [address] BUN/CRE 13.4 RATIO Normal 10-[address] [facility] Comment on above: Performed By: #### L 500.4050, L100.0500 ####[facility] [address] [place], [address] CA,Total 8.4 mg/dL Low 8.5-10.[address] [facility] Comment on above: Performed By: #### L 500.4050, L100.0500 ####[facility] [address] [place], [address] Chloride [Moles/Vol] 113 mmol/L High 98-107 [facility] Comment on above: Performed By: #### L 500.4050, L100.0500 ####[facility] [address] [place], [address] CO2 [Moles/Vol] 21.0 mmol/L Normal 21.0-32.[address] [facility] Comment on above: Performed By: #### L 500.4050, L100.0500 ####[facility] [address] [place], [address] Creatinine [Mass/Vol] 0.97 mg/dL Normal 0.55-1.02 [facility] Comment on above: Result Comment: The validity of the calculated GFR GFRAA in patients over70 years has not been determined. Clinical correlation isessential. Performed By: #### L 500.4050, L100.0500 ####[facility] [address] [place], [address] ECRCL 66.66 ml/min Normal [facility] Comment on above: Performed By: #### L 500.4050, L100.0500 ####[facility] [address] [place], [address] EST GFR - AA 78 mL/min Normal >[address] [facility] Comment on above: Result Comment: Afri can [place] GFR Calc Performed By: #### L 500.4050, L100.0500 ####[facility] [address] [place], [address] GAP 4 Low 5-[address] [facility] Comment on above: Performed By: #### L 500.4050, L100.0500 ####[facility] [address] [place], [address] GFR/1.73 sq M.predicted among non-blacks MDRD (S/P/Bld) [Vol rate/Area] 64 mL/min/{1.73_m2} Normal >[address] [facility] Comment on above: Result Comment: Non- GFR Calc Performed By: #### L 500.4050, L100.0500 ####[facility] [address] [place], [address] Globulin (S) [Mass/Vol] 3.2 g/dL Normal 2.2-4.[address] [facility] Comment on above: Performed By: #### L 500.4050, L100.0500 ####[facility] [address] [place], [address] Glucose [Mass/Vol] 162 mg/dL High 74-106 [facility] Comment on above: Result Comment: Fast ing Glucose result greater than or equal to 126 mg/dLsuggests DIABETES MELLITUS per A.D.A. criteria. Performed By: #### L 500.4050, L100.0500 ####[facility] [address] [place], [address] Potassium [Moles/Vol] 3.8 mmol/L Normal 3.5-5.1 [facility] Comment on above: Performed By: #### L 500.4050, L100.0500 ####[facility] [address] [place], [address] Sodium [Moles/Vol] 138 mmol/L Normal 136-145 [facility] Comment on above: Performed By: #### L 500.4050, L100.0500 ####[facility] [address] [place], [address] T PROT 5.4 g/dL Low 6.4-8.[address] [facility] Comment on above: Performed By: #### L 500.4050, L100.0500 ####[facility] [address] [place], [address] Urea nitrogen [Mass/Vol] 13 mg/dL Normal 7-[address] [facility] Comment on above: Performed By: #### L 500.4050, L100.0500 ####[facility] [address] [place], [address] Ferritinon 06-14-2024 Ferritin [Mass/Vol] 30 ng/mL Normal 8-252 [facility] Comment on above: Order Comment: Has P jyoti had X-rays with Contrast this admission? NN Performed By: #### L 506.0250, L503.6030, L503.6550, L503.0105 ####[facility] [address] [place], [address] Folates, (Folic Acid)on 05-27 FOLATES 5.80 ng/mL Normal 3.1-55.[address] [facility] Comment on above: Order Comment: Has P jyoti had X-rays with Contrast this admission? NN Performed By: #### L 506.0250, L503.6030, L503.6550, L503.0105 ####[facility] [address] [place], [address] Iron+Iron Binding Capacityon 06-14-2024 Iron [Mass/Vol] 66 ug/dL Normal 50-[address] [facility] Comment on above: Order Comment: Has P jyoti had X-rays with Contrast this admission? NN Performed By: #### L 506.0250, L503.6030, L503.6550, L503.0105 ####[facility] [address] [place], [address] IRON SATURATION 31.6 Normal 15.0-55.[address] [facility] Comment on above: Order Comment: Has P jyoti had X-rays with Contrast this admission? NN Performed By: #### L 506.0250, L503.6030, L503.6550, L503.0105 ####[facility] [address] [place], [address] TIBC 209 ug/dL Low 250-[address] [facility] Comment on above: Order Comment: Has P atмарина had X-rays with Contrast this admission? NN Performed By: #### L 506.0250, L503.6030, L503.6550, L503.0105 ####[facility] [address] [place], [address] Vitamin B12on 06-14-2024 Cobalamin (Vitamin B12) [Mass/Vol] 720 pg/mL Normal 211-[address] [facility] Comment on above: Performed By: #### L 506.0250, L503.6030, L503.6550, L503.0105 ####[facility] [address] [place], [address] CBC W/Diff, Automatedon 05-27 Absolute Lymph 0.78 X10 3/uL Low 0.83-4.[address] [facility] Comment on above: Performed By: #### L 100.0100, L500.4050 ####[facility] [address] [place], [address] Absolute Neut 5.6 X10 3/uL Normal 2.0-7.[address] [facility] Comment on above: Performed By: #### L 100.0100, L500.4050 ####[facility] [address] [place], [address] Basophils/100 WBC (Bld) 0.5 % Normal 0-[address] [facility] Comment on above: Performed By: #### L 100.0100, L500.4050 ####[facility] [address] [place], [address] Eosinophils/100 WBC (Bld) 0.5 % Normal 0-[address] [facility] Comment on above: Performed By: #### L 100.0100, L500.4050 ####[facility] [address] [place], [address] Erythrocyte distribution width (RBC) [Ratio] 17.2 % High 11.6-14.[address] [facility] Comment on above: Performed By: #### L 100.0100, L500.4050 ####[facility] [address] [place], [address] Hematocrit (Bld) [Volume fraction] 34.9 % Low 37-[address] [facility] Comment on above: Performed By: #### L 100.0100, L500.4050 ####[facility] [address] [place], [address] Hemoglobin (Bld) [Mass/Vol] 11.4 g/dL Low 12.0-15.[address] [facility] Comment on above: Performed By: #### L 100.0100, L500.4050 ####[facility] [address] [place], [address] IG% 0.800 Normal 0.0-0.[address] [facility] Comment on above: Result Comment: IG% - Immature Granulocytes (promyelocytes, myelocytes andmetamyelocytes) > 1% indicates that a LEFT SHIFT is Present. Performed By: #### L 100.0100, L500.4050 ####[facility] [address] [place], [address] Lymphocytes/100 WBC (Bld) 11.7 % Low 19-[address] [facility] Comment on above: Performed By: #### L 100.0100, L500.4050 ####[facility] [address] [place], [address] MCH (RBC) [Entitic mass] 30.4 pg Normal 27.0-32.[address] [facility] Comment on above: Performed By: #### L 100.0100, L500.4050 ####[facility] [address] [place], [id number] MCHC (RBC) [Mass/Vol] 32.7 g/dL Normal 32-36 [facility] Comment on above: Performed By: #### L 100.0100, L500.4050 ####[facility] [address] [place], [id number] MCV (RBC) [Entitic vol] 93.1 fL Normal 81-[address] [facility] Comment on above: Performed By: #### L 100.0100, L500.4050 ####[facility] [address] [place], [address] Monocytes/100 WBC (Bld) 2.0 % Normal 0-[address] [facility] Comment on above: Performed By: #### L 100.0100, L500.4050 ####[facility] [address] [place], [address] Neutrophils/100 WBC (Bld) 84.5 % High 47-[address] [facility] Comment on above: Performed By: #### L 100.0100, L500.4050 ####[facility] [address] [place], [address] Nucleated RBC (Bld) [#/Vol] 0 10*3/uL Normal 0-[address] [facility] Comment on above: Performed By: #### L 100.0100, L500.4050 ####[facility] [address] [place], [address] Platelet mean volume (Bld) [Entitic vol] 10.4 fL Normal 6.2-12.[address] [facility] Comment on above: Performed By: #### L 100.0100, L500.4050 ####[facility] [address] [place], [id number] Platelets (Bld) [#/Vol] 74 10*3/uL Low 150-[address] [facility] Comment on above: Performed By: #### L 100.0100, L500.4050 ####[facility] [address] [place], [id number] RBC (Bld) [#/Vol] 3.75 10*6/uL Low 4.2-5.4 [facility] Comment on above: Performed By: #### L 100.0100, L500.4050 ####[facility] [address] [place], [id number] RDW SD 57.8 fl High 35.1-43.[address] [facility] Comment on above: Performed By: #### L 100.0100, L500.4050 ####[facility] [address] [place], [address] WBC (Bld) [#/Vol] 6.7 10*3/uL Normal 4.4-11.0 [facility] Comment on above: Performed By: #### L 100.0100, L500.4050 ####[facility] [address] [place], [id number] Comprehensive Metabolic Prof [facility] 06-13-2024 Albumin [Mass/Vol] 2.3 g/dL Low 3.2-5.0 [facility] Comment on above: Performed By: #### L 100.0100, L500.4050 ####[facility] [address] [place], [id number] Albumin/Globulin [Mass ratio] 0.5 {ratio} Low 0.9-2.[address] [facility] Comment on above: Performed By: #### L 100.0100, L500.4050 ####[facility] [address] [place], [id number] ALK P 147 U/L High 45-[address] [facility] Comment on above: Performed By: #### L 100.0100, L500.4050 ####[facility] [address] [place], [id number] ALT [Catalytic activity/Vol] 82 U/L High 13-[address] [facility] Comment on above: Performed By: #### L 100.0100, L500.4050 ####[facility] [address] [place], [id number] AST [Catalytic activity/Vol] 124 U/L High 15-[address] [facility] Comment on above: Performed By: #### L 100.0100, L500.4050 ####[facility] [address] [place], [address] Bilirubin [Mass/Vol] 2.30 mg/dL High 0.20-1.00 [facility] Comment on above: Result Comment: For patients on eltrombopag therapy, use of Dimension [place] TBIL is not recommended. Performed By: #### L 100.0100, L500.4050 ####[facility] [address] [place], [id number] BUN/CRE 7.6 RATIO Low 10-[address] [facility] Comment on above: Performed By: #### L 100.0100, L500.4050 ####[facility] [address] [place], [id number] CA,Total 8.6 mg/dL Normal 8.5-10.[address] [facility] Comment on above: Performed By: #### L 100.0100, L500.4050 ####[facility] [address] [place], [id number] Chloride [Moles/Vol] 111 mmol/L High 98-107 [facility] Comment on above: Performed By: #### L 100.0100, L500.4050 ####[facility] [address] [place], [address] CO2 [Moles/Vol] 18.0 mmol/L Low 21.0-32.[address] [facility] Comment on above: Performed By: #### L 100.0100, L500.4050 ####[facility] [address] [place], [address] Creatinine [Mass/Vol] 1.19 mg/dL High 0.55-1.02 [facility] Comment on above: Result Comment: The validity of the calculated GFR GFRAA in patients over70 years has not been determined. Clinical correlation isessential. Performed By: #### L 100.0100, L500.4050 ####[facility] [address] [place], [address] ECRCL 54.34 ml/min Normal [facility] Comment on above: Performed By: #### L 100.0100, L500.4050 ####[facility] [address] [place], [address] EST GFR - AA 62 mL/min Normal >[address] [facility] Comment on above: Result Comment: Afri can [place] GFR Calc Performed By: #### L 100.0100, L500.4050 ####[facility] [address] [place], [address] GAP 10 Normal 5-[address] [facility] Comment on above: Performed By: #### L 100.0100, L500.4050 ####[facility] [address] [place], [address] GFR/1.73 sq M.predicted among non-blacks MDRD (S/P/Bld) [Vol rate/Area] 51 mL/min/{1.73_m2} Low >[address] [facility] Comment on above: Result Comment: Non- GFR Calc Performed By: #### L 100.0100, L500.4050 ####[facility] [address] [place], [address] Globulin (S) [Mass/Vol] 4.3 g/dL High 2.2-4.[address] [facility] Comment on above: Performed By: #### L 100.0100, L500.4050 ####[facility] [address] [place], [address] Glucose [Mass/Vol] 217 mg/dL High 74-106 [facility] Comment on above: Result Comment: Gluc ose result greater than or equal to 200 mg/dLsuggests DIABETES MELLITUS per A.D.A. criteria. Performed By: #### L 100.0100, L500.4050 ####[facility] [address] [place], [address] Potassium [Moles/Vol] 3.6 mmol/L Normal 3.5-5.1 [facility] Comment on above: Performed By: #### L 100.0100, L500.4050 ####[facility] [address] [place], [address] Sodium [Moles/Vol] 139 mmol/L Normal 136-145 [facility] Comment on above: Performed By: #### L 100.0100, L500.4050 ####[facility] [address] [place], [address] T PROT 6.6 g/dL Normal 6.4-8.[address] [facility] Comment on above: Performed By: #### L 100.0100, L500.4050 ####[facility] [address] [place], [address] Urea nitrogen [Mass/Vol] 9 mg/dL Normal 7-[address] [facility] Comment on above: Performed By: #### L 100.0100, L500.4050 ####[facility] [address] [place], [address] [facility] - Hospitalist Normal [facility] Discharge Instructionon 05-27 Discharge Instruction Normal [facility] MR/POSTOP.ANEon 06-13-2024 MR/POSTOP.ANE Normal [facility] MR/OGURNBUS9bn 06-13-2024 MR/POSTOPAN2 Normal [facility] Operative Reporton 4 Operative Report Normal [facility] Procedure Reporton 4 Procedure Report [address] [facility] Prothrombin Time w/INRon INR Coag (PPP) [Relative time] 1.6 {INR} Normal [facility] Comment on above: Performed By: #### L 300.3900 ####[facility] [address] [place], [address] PT Coag (PPP) [Time] 18.7 s High 11.7-14.9 [facility] Comment on above: Performed By: #### L 300.3900 ####[facility] [address] [place], [address] [facility] Comment on above: Result Comment: Canc elled via OM: Order edited - Discontinuing original order Performed By: #### L 300.3900 ####[facility] [address] [place], [address] PROTIME Normal 11.7-14.[address] [facility] Comment on above: Result Comment: Canc elled via OM: Order edited - Discontinuing original order Performed By: #### L 300.3900 ####[facility] [address] [place], [address] Urine Cultureon 06-09-[address] [facility] Comment on above: Performed By: #### M 100.2200 ####[facility] [address] [place], [address] Emergency Department Summary on 06-08-2024 Emergency Department Summary Normal [facility] Basic Metabolic Profile (BMP )on 06-07-2024 BUN/CRE 8.2 RATIO Low 10-[address] [facility] Comment on above: Performed By: #### L 100.0100, L500.2500 ####[facility] [address] [place], [address] CA,Total 9.2 mg/dL Normal 8.5-10.[address] [facility] Comment on above: Performed By: #### L 100.0100, L500.2500 ####[facility] [address] [place], [address] Chloride [Moles/Vol] 112 mmol/L High 98-107 [facility] Comment on above: Performed By: #### L 100.0100, L500.2500 ####[facility] [address] [place], [address] CO2 [Moles/Vol] 22.0 mmol/L Normal 21.0-32.[address] [facility] Comment on above: Performed By: #### L 100.0100, L500.2500 ####[facility] [address] [place], [address] Creatinine [Mass/Vol] 0.86 mg/dL Normal 0.55-1.02 [facility] Comment on above: Result Comment: The validity of the calculated GFR GFRAA in patients over70 years has not been determined. Clinical correlation isessential. Performed By: #### L 100.0100, L500.2500 ####[facility] [address] [place], [address] ECRCL 69.06 ml/min Normal [facility] Comment on above: Performed By: #### L 100.0100, L500.2500 ####[facility] [address] [place], [address] EST GFR - AA 90 mL/min Normal >[address] [facility] Comment on above: Result Comment: Afri can [place] GFR Calc Performed By: #### L 100.0100, L500.2500 ####[facility] [address] [place], [address] GAP 5 Normal 5-[address] [facility] Comment on above: Performed By: #### L 100.0100, L500.2500 ####[facility] [address] [place], [address] GFR/1.73 sq M.predicted among non-blacks MDRD (S/P/Bld) [Vol rate/Area] 75 mL/min/{1.73_m2} Normal >[address] [facility] Comment on above: Result Comment: Non- GFR Calc Performed By: #### L 100.0100, L500.2500 ####[facility] [address] [place], [address] Glucose [Mass/Vol] 105 mg/dL Normal 74-106 [facility] Comment on above: Result Comment: Fast ing Glucose result from 100 to 125 mg/dLsuggests IMPAIRED HOMEOSTASIS per A.D.A. criteria. Performed By: #### L 100.0100, L500.2500 ####[facility] [address] [place], [address] Potassium [Moles/Vol] 3.8 mmol/L Normal 3.5-5.1 [facility] Comment on above: Performed By: #### L 100.0100, L500.2500 ####[facility] [address] [place], [address] Sodium [Moles/Vol] 139 mmol/L Normal 136-145 [facility] Comment on above: Performed By: #### L 100.0100, L500.2500 ####[facility] [address] [place], [address] Urea nitrogen [Mass/Vol] 7 mg/dL Normal 7-[address] [facility] Comment on above: Performed By: #### L 100.0100, L500.2500 ####[facility] [address] [place], [address] CBC W/Diff, Automatedon 05-27 Absolute Lymph 1.25 X10 3/uL Normal 0.83-4.[address] [facility] Comment on above: Performed By: #### L 100.0100, L500.2500 ####[facility] [address] [place], [address] Absolute Neut 5.8 X10 3/uL Normal 2.0-7.[address] [facility] Comment on above: Performed By: #### L 100.0100, L500.2500 ####[facility] [address] [place], [address] Basophils/100 WBC (Bld) 0.6 % Normal 0-[address] [facility] Comment on above: Performed By: #### L 100.0100, L500.2500 ####[facility] [address] [place], [address] Eosinophils/100 WBC (Bld) 3.8 % Normal 0-[address] [facility] Comment on above: Performed By: #### L 100.0100, L500.2500 ####[facility] [address] [place], [address] Erythrocyte distribution width (RBC) [Ratio] 16.2 % High 11.6-14.[address] [facility] Comment on above: Performed By: #### L 100.0100, L500.2500 ####[facility] [address] [place], [address] Hematocrit (Bld) [Volume fraction] 34.1 % Low 37-[address] [facility] Comment on above: Performed By: #### L 100.0100, L500.2500 ####[facility] [address] [place], [address] Hemoglobin (Bld) [Mass/Vol] 11.7 g/dL Low 12.0-15.[address] [facility] Comment on above: Performed By: #### L 100.0100, L500.2500 ####[facility] [address] [place], [address] IG% 0.200 Normal 0.0-0.[address] [facility] Comment on above: Result Comment: IG% - Immature Granulocytes (promyelocytes, myelocytes andmetamyelocytes) > 1% indicates that a LEFT SHIFT is Present. Performed By: #### L 100.0100, L500.2500 ####[facility] [facility] [address] [place], [address] Lymphocytes/100 WBC (Bld) 15.4 % Low 19-[address] [facility] Comment on above: Performed By: #### L 100.0100, L500.2500 ####[facility] [address] [place], [address] MCH (RBC) [Entitic mass] 30.8 pg Normal 27.0-32.[address] [facility] Comment on above: Performed By: #### L 100.0100, L500.2500 ####[facility] [address] [place], [address] MCHC (RBC) [Mass/Vol] 34.3 g/dL Normal 32-36 [facility] Comment on above: Performed By: #### L 100.0100, L500.2500 ####[facility] [address] [place], [address] MCV (RBC) [Entitic vol] 89.7 fL Normal 81-[address] [facility] Comment on above: Performed By: #### L 100.0100, L500.2500 ####[facility] [address] [place], [address] Monocytes/100 WBC (Bld) 8.1 % Normal 0-[address] [facility] Comment on above: Performed By: #### L 100.0100, L500.2500 ####[facility] [address] [place], [address] Neutrophils/100 WBC (Bld) 71.9 % High 47-[address] [facility] Comment on above: Performed By: #### L 100.0100, L500.2500 ####[facility] [address] [place], [address] Nucleated RBC (Bld) [#/Vol] 0 10*3/uL Normal 0-[address] [facility] Comment on above: Performed By: #### L 100.0100, L500.2500 ####[facility] [address] [place], [address] Platelet mean volume (Bld) [Entitic vol] 10.8 fL Normal 6.2-12.[address] [facility] Comment on above: Performed By: #### L 100.0100, L500.2500 ####[facility] [address] [place], [address] Platelets (Bld) [#/Vol] 77 10*3/uL Low 150-[address] [facility] Comment on above: Performed By: #### L 100.0100, L500.2500 ####[facility] [address] [place], [address] RBC (Bld) [#/Vol] 3.80 10*6/uL Low 4.2-5.4 [facility] Comment on above: Performed By: #### L 100.0100, L500.2500 ####[facility] [address] [place], [address] RDW SD 53.1 fl High 35.1-43.[address] [facility] Comment on above: Performed By: #### L 100.0100, L500.2500 ####[facility] [address] [place], [address] WBC (Bld) [#/Vol] 8.1 10*3/uL Normal 4.4-11.0 [facility] Comment on above: Performed By: #### L 100.0100, L500.2500 ####[facility] [address] [place], [address] Emergency Department Summary on 06-07-2024 Emergency Department Summary Normal [facility] Urinalysis, Completeon 06-07 RBC > 100 SEEN Normal 0-[address] [facility] Comment on above: Order Comment: COLOR OF URINE MAY AFFECT DIPSTICK RESULTS.GEOSPATIAL APPLICATIONS DEVELOPER TO SPECIFY Performed By: #### L 400.0001 ####[facility] [address] [place], [address] EPI,SQUAMOUS 0-5 SEEN Normal 5-[address] [facility] Comment on above: Order Comment: COLOR OF URINE MAY AFFECT DIPSTICK RESULTS.GEOSPATIAL APPLICATIONS DEVELOPER TO SPECIFY Performed By: #### L 400.0001 ####[facility] [address] [place], [address] WBC 0-5 SEEN Normal 0-[address] [facility] Comment on above: Order Comment: COLOR OF URINE MAY AFFECT DIPSTICK RESULTS.GEOSPATIAL APPLICATIONS DEVELOPER TO SPECIFY Performed By: #### L 400.0001 ####[facility] [address] [place], [address] BACTERIA 0 SEEN Normal None Seen [facility] Comment on above: Order Comment: COLOR OF URINE MAY AFFECT DIPSTICK RESULTS.GEOSPATIAL APPLICATIONS DEVELOPER TO SPECIFY Performed By: #### L 400.0001 ####[facility] [address] [place], [address] Mucus Ql (Urine sed) 0 SEEN Normal [facility] Comment on above: Order Comment: COLOR OF URINE MAY AFFECT DIPSTICK RESULTS.GEOSPATIAL APPLICATIONS DEVELOPER TO SPECIFY Performed By: #### L 400.0001 ####[facility] [address] [place], [address] Abdomen/Pelvis without Conto n 06-06-2024 Abdomen/Pelvis without Cont Normal [facility] CBC W/Diff, Automatedon 09- Absolute Lymph 1.12 X10 3/uL Normal 0.83-4.[address] [facility] Comment on above: Performed By: #### L 501.2450, L100.0100, L503.6005, L500.4050 ####[facility] [address] [place], [address] Absolute Neut 3.7 X10 3/uL Normal 2.0-7.[address] [facility] Comment on above: Performed By: #### L 501.2450, L100.0100, L503.6005, L500.4050 ####[facility] [address] [place], [address] Basophils/100 WBC (Bld) 0.9 % Normal 0-[address] [facility] Comment on above: Performed By: #### L 501.2450, L100.0100, L503.6005, L500.4050 ####[facility] [address] [place], [address] Eosinophils/100 WBC (Bld) 4.6 % Normal 0-[address] [facility] Comment on above: Performed By: #### L 501.2450, L100.0100, L503.6005, L500.4050 ####[facility] [address] [place], [address] Erythrocyte distribution width (RBC) [Ratio] 16.3 % High 11.6-14.[address] [facility] Comment on above: Performed By: #### L 501.2450, L100.0100, L503.6005, L500.4050 ####[facility] [address] [place], [address] Hematocrit (Bld) [Volume fraction] 35.5 % Low 37-[address] [facility] Comment on above: Performed By: #### L 501.2450, L100.0100, L503.6005, L500.4050 ####[facility] [address] [place], [address] Hemoglobin (Bld) [Mass/Vol] 11.6 g/dL Low 12.0-15.[address] [facility] Comment on above: Performed By: #### L 501.2450, L100.0100, L503.6005, L500.4050 ####[facility] [address] [place], [address] IG% 0.500 Normal 0.0-0.[address] [facility] Comment on above: Result Comment: IG% - Immature Granulocytes (promyelocytes, myelocytes andmetamyelocytes) > 1% indicates that a LEFT SHIFT is Present. Performed By: #### L 501.2450, L100.0100, L503.6005, L500.4050 ####[facility] [address] [place], [address] Lymphocytes/100 WBC (Bld) 19.8 % Normal 19-[address] [facility] Comment on above: Performed By: #### L 501.2450, L100.0100, L503.6005, L500.4050 ####[facility] [address] [place], [address] MCH (RBC) [Entitic mass] 30.5 pg Normal 27.0-32.[address] [facility] Comment on above: Performed By: #### L 501.2450, L100.0100, L503.6005, L500.4050 ####[facility] [address] [place], [address] MCHC (RBC) [Mass/Vol] 32.7 g/dL Normal 32-36 [facility] Comment on above: Performed By: #### L 501.2450, L100.0100, L503.6005, L500.4050 ####[facility] [address] [place], [address] MCV (RBC) [Entitic vol] 93.4 fL Normal 81-[address] [facility] Comment on above: Performed By: #### L 501.2450, L100.0100, L503.6005, L500.4050 ####[facility] [address] [place], [address] Monocytes/100 WBC (Bld) 8.8 % Normal 0-[address] [facility] Comment on above: Performed By: #### L 501.2450, L100.0100, L503.6005, L500.4050 ####[facility] [address] [place], [address] Neutrophils/100 WBC (Bld) 65.4 % Normal 47-[address] [facility] Comment on above: Performed By: #### L 501.2450, L100.0100, L503.6005, L500.4050 ####[facility] [address] [place], [address] Nucleated RBC (Bld) [#/Vol] 0 10*3/uL Normal 0-[address] [facility] Comment on above: Performed By: #### L 501.2450, L100.0100, L503.6005, L500.4050 ####[facility] [address] [place], [address] Platelet mean volume (Bld) [Entitic vol] 10.9 fL Normal 6.2-12.[address] [facility] Comment on above: Performed By: #### L 501.2450, L100.0100, L503.6005, L500.4050 ####[facility] [address] [place], [address] Platelets (Bld) [#/Vol] 61 10*3/uL Low 150-[address] [facility] Comment on above: Performed By: #### L 501.2450, L100.0100, L503.6005, L500.4050 ####[facility] [address] [place], [address] RBC (Bld) [#/Vol] 3.80 10*6/uL Low 4.2-5.4 [facility] Comment on above: Performed By: #### L 501.2450, L100.0100, L503.6005, L500.4050 ####[facility] [address] [place], [address] RDW SD 56.4 fl High 35.1-43.[address] [facility] Comment on above: Performed By: #### L 501.2450, L100.0100, L503.6005, L500.4050 ####[facility] [address] [place], [address] WBC (Bld) [#/Vol] 5.7 10*3/uL Normal 4.4-11.0 [facility] Comment on above: Performed By: #### L 501.2450, L100.0100, L503.6005, L500.4050 ####[facility] [address] [place], [address] Comprehensive Metabolic Prof ilon 06-06-2024 Albumin [Mass/Vol] 2.6 g/dL Low 3.2-5.0 [facility] Comment on above: Performed By: #### L 501.2450, L100.0100, L503.6005, L500.4050 ####[facility] [address] [place], [address] Albumin/Globulin [Mass ratio] 0.6 {ratio} Low 0.9-2.[address] [facility] Comment on above: Performed By: #### L 501.2450, L100.0100, L503.6005, L500.4050 ####[facility] [address] [place], [address] ALK P 158 U/L High 45-[address] [facility] Comment on above: Performed By: #### L 501.2450, L100.0100, L503.6005, L500.4050 ####[facility] [address] [place], [address] ALT [Catalytic activity/Vol] 106 U/L High 13-[address] [facility] Comment on above: Performed By: #### L 501.2450, L100.0100, L503.6005, L500.4050 ####[facility] [address] [place], [address] AST [Catalytic activity/Vol] 150 U/L High 15-[address] [facility] Comment on above: Performed By: #### L 501.2450, L100.0100, L503.6005, L500.4050 ####[facility] [address] [place], [address] Bilirubin [Mass/Vol] 2.70 mg/dL High 0.20-1.00 [facility] Comment on above: Result Comment: For patients on eltrombopag therapy, use of Dimension [place] TBIL is not recommended. Performed By: #### L 501.2450, L100.0100, L503.6005, L500.4050 ####[facility] [address] [place], [address] BUN/CRE 10.9 RATIO Normal 10-[address] [facility] Comment on above: Performed By: #### L 501.2450, L100.0100, L503.6005, L500.4050 ####[facility] [address] [place], [address] CA,Total 8.9 mg/dL Normal 8.5-10.[address] [facility] Comment on above: Performed By: #### L 501.2450, L100.0100, L503.6005, L500.4050 ####[facility] [address] [place], [address] Chloride [Moles/Vol] 109 mmol/L High 98-107 [facility] Comment on above: Performed By: #### L 501.2450, L100.0100, L503.6005, L500.4050 ####[facility] [address] [place], [address] CO2 [Moles/Vol] 25.0 mmol/L Normal 21.0-32.[address] [facility] Comment on above: Performed By: #### L 501.2450, L100.0100, L503.6005, L500.4050 ####[facility] [address] [place], [address] Creatinine [Mass/Vol] 0.83 mg/dL Normal 0.55-1.02 [facility] Comment on above: Result Comment: The validity of the calculated GFR GFRAA in patients over70 years has not been determined. Clinical correlation isessential. Performed By: #### L 501.2450, L100.0100, L503.6005, L500.4050 ####[facility] [address] [place], [address] ECRCL 78.78 ml/min Normal [facility] Comment on above: Performed By: #### L 501.2450, L100.0100, L503.6005, L500.4050 ####[facility] [address] [place], [address] EST GFR - AA 94 mL/min Normal >[address] [facility] Comment on above: Result Comment: Afri can [place] GFR Calc Performed By: #### L 501.2450, L100.0100, L503.6005, L500.4050 ####[facility] [address] [place], [address] GAP 5 Normal 5-[address] [facility] Comment on above: Performed By: #### L 501.2450, L100.0100, L503.6005, L500.4050 ####[facility] [address] [place], [address] GFR/1.73 sq M.predicted among non-blacks MDRD (S/P/Bld) [Vol rate/Area] 78 mL/min/{1.73_m2} Normal >[address] [facility] Comment on above: Result Comment: Non- GFR Calc Performed By: #### L 501.2450, L100.0100, L503.6005, L500.4050 ####[facility] [address] [place], [address] Globulin (S) [Mass/Vol] 4.6 g/dL High 2.2-4.[address] [facility] Comment on above: Performed By: #### L 501.2450, L100.0100, L503.6005, L500.4050 ####[facility] [address] [place], [address] Glucose [Mass/Vol] 79 mg/dL Normal 74-106 [facility] Comment on above: Performed By: #### L 501.2450, L100.0100, L503.6005, L500.4050 ####[facility] [address] [place], [address] Potassium [Moles/Vol] 3.0 mmol/L Low 3.5-5.1 [facility] Comment on above: Performed By: #### L 501.2450, L100.0100, L503.6005, L500.4050 ####[facility] [address] [place], [address] Sodium [Moles/Vol] 139 mmol/L Normal 136-145 [facility] Comment on above: Performed By: #### L 501.2450, L100.0100, L503.6005, L500.4050 ####[facility] [address] [place], [address] T PROT 7.2 g/dL Normal 6.4-8.[address] [facility] Comment on above: Performed By: #### L 501.2450, L100.0100, L503.6005, L500.4050 ####[facility] [address] [place], [address] Urea nitrogen [Mass/Vol] 9 mg/dL Normal 7-[address] [facility] Comment on above: Performed By: #### L 501.2450, L100.0100, L503.6005, L500.4050 ####[facility] [address] [place], [address] Culture, Anaerobic Any Sourc ayesha 06-06-[address] [facility] Comment on above: Performed By: #### L 200.0200, M100.2900, L503.0300, L503.0100, M100.2000, M100.4001 ####[facility] [address] [place], [address] Emergency Department Summary on 06-06-2024 Emergency Department Summary Normal [facility] Lactic Acidon 06-06-2024 Lactate [Moles/Vol] 1.5 mmol/L Normal 0.4-1.9 [facility] Comment on above: Order Comment: Y Performed By: #### L 501.2450, L100.0100, L503.6005, L500.4050 ####[facility] [address] [place], [address] Lipaseon 06-06-2024 Lipase [Catalytic activity/Vol] 44 U/L Normal 13-[address] [facility] Comment on above: Result Comment: Pleambreen jimenez note:LIPASE revised reference range effective 23.New Lipase methodology. Expected to produce lower valuesthan the previous assay method.NEW Reference Range: 13 - 75 U/L Performed By: #### L 501.2450, L100.0100, L503.6005, L500.4050 ####[facility] [address] [place], [address] Urinalysis, Completeon 06-06 BACTERIA 2+ /hpf Normal None Seen [facility] Comment on above: Order Comment: COLOR OF URINE MAY AFFECT DIPSTICK RESULTS.CLEAN CATCH Performed By: #### L 400.0001 ####[facility] [address] [place], [address] EPI,SQUAMOUS 0-5 SEEN Normal 5-[address] [facility] Comment on above: Order Comment: COLOR OF URINE MAY AFFECT DIPSTICK RESULTS.CLEAN CATCH Performed By: #### L 400.0001 ####[facility] [address] [place], [address] RBC 50-100 SEEN Normal 0-[address] [facility] Comment on above: Order Comment: COLOR OF URINE MAY AFFECT DIPSTICK RESULTS.CLEAN CATCH Performed By: #### L 400.0001 ####[facility] [address] [place], [address] WBC 10-25 SEEN Normal 0-[address] [facility] Comment on above: Order Comment: COLOR OF URINE MAY AFFECT DIPSTICK RESULTS.CLEAN CATCH Performed By: #### L 400.0001 ####[facility] [address] [place], [address] Mucus Ql (Urine sed) 0 SEEN Normal [facility] Comment on above: Order Comment: COLOR OF URINE MAY AFFECT DIPSTICK RESULTS.CLEAN CATCH Performed By: #### L 400.0001 ####[facility] [address] [place], [address] Bacteria Ur Culton 4 Bacteria identified Cx Nom (U) CULTURE, URINE: <10,000 CFU/mL Three or more organisms, no one type predominant, suggesting contamination during collection. Recollect if clinically indicated. Abnormal [facility] Comment on above: Performed By: #### 6 30-4 ####[facility] [id number] [address] CBC panel Auto (Bld)on 06-05 Erythrocyte distribution width (RBC) [Ratio] 16.6 % High 11.5-15.0 [facility] Comment on above: Order Comment: Speci men Type: BLOOD SPECIMENOrdering Facility: [facility] Address: [address] [place] [address] Performed By: #### 5 8410-2 ####[facility] [id number] [address] [facility] Hematocrit (Bld) [Volume fraction] 32.1 % Low 36.0-46.0 [facility] Comment on above: Order Comment: Speci men Type: BLOOD SPECIMENOrdering Facility: [facility] Address: [address] [place] [address] Performed By: #### 5 8410-2 ####[facility] [id number] [address] [place] Hemoglobin (Bld) [Mass/Vol] 10.9 g/dL Low 11.5-15.5 [facility] Comment on above: Order Comment: Speci men Type: BLOOD SPECIMENOrdering Facility: [facility] Address: [address] [place] [address] Performed By: #### 5 8410-2 ####[facility] [id number] [address] [place] [facility] MCH (RBC) [Entitic mass] 31.3 pg Normal 26.0-34.0 [facility] Comment on above: Order Comment: Speci men Type: BLOOD SPECIMENOrdering Facility: [facility] Address: [address] [place] [address] Performed By: #### 5 8410-2 ####[facility]ORY[facility] [id number] [place] [address] [place] MCHC (RBC) [Mass/Vol] 34.0 g/dL Normal 30.5-36.0 [facility] Comment on above: Order Comment: Speci men Type: BLOOD SPECIMENOrdering Facility: [facility] Address: [address] [place] [address] Performed By: #### 5 8410-2 ####[facility] [id number] [address] [place] MCV (RBC) [Entitic vol] 92.2 fL Normal 80.0-100.0 [facility] Comment on above: Order Comment: Speci men Type: BLOOD SPECIMENOrdering Facility: [facility] Address: [address] [place] [address] Performed By: #### 5 8410-2 ####[facility] [id number] [address] Nucleated RBC (Bld) [#/Vol] 10*3/uL Normal <0.01 [facility] Comment on above: Order Comment: Speci men Type: BLOOD SPECIMENOrdering Facility: [facility] Address: [address] [place] [address] Performed By: #### 5 8410-2 ####[facility] [id number] [address] [place] Platelet mean volume (Bld) [Entitic vol] 10.7 fL Normal 9.0-12.7 [facility] Comment on above: Order Comment: Speci men Type: BLOOD SPECIMENOrdering Facility: [facility] Address: [address] [place] [address] Performed By: #### 5 8410-2 ####[facility]CL[facility] [id number] [address] [place] Platelets (Bld) [#/Vol] 54 10*3/uL Low 150-400 [facility] Comment on above: Order Comment: Speci men Type: BLOOD SPECIMENOrdering Facility: [facility] Address: [address] [place] [address] Result Comment: No c lot detected. Performed By: #### 5 8410-2 ####[facility]CL[facility] [id number] [address] [facility] RBC (Bld) [#/Vol] 3.48 10*6/uL Low 3.90-5.20 [facility] Comment on above: Order Comment: Speci men Type: BLOOD SPECIMENOrdering Facility: [facility] Address: [address] [place] [address] Performed By: #### 5 8410-2 ####[facility]ORYCLIA [id number] [address] [facility] WBC (Bld) [#/Vol] 4.85 10*3/uL Normal 3.70-11.00 [facility] Comment on above: Order Comment: Speci men Type: BLOOD SPECIMENOrdering Facility: [facility] Address: [address] [place] [address] Performed By: #### 5 8410-2 ####[facility]ORYCLIA [id number] [address] [facility] CT ABD/PEL W IVCONon 024 CT ABD/PEL W IVCON * * *Final Report* * * DATE OF EXAM: Jun 05 2024 1:13AM [facility] 0530 - CT ABD/PEL W IVCON / PROCEDURE REASON: stent assesement ; right stent with 8mm stone * * * * Physician Interpretation * * * * EXAMINATION: CT ABDOMEN AND PELVIS WITH IV CONTRAST CLINICAL HISTORY: Hematuria TECHNIQUE: CT of the abdomen and pelvis was performed using standard technique, scanning from just above the dome of the diaphragm to the symphysis pubis. MQ: CTAP_3 Contrast: IV: 100 ml of Omnipaque 350 : ml of CT Radiation dose: Integrated Dose-length product (DLP) for this visit = 520 mGy*cm. CT Dose Reduction Employed: Automated exposure control(AEC) and iterative recon COMPARISON: 11/19/2023 RESULT: Liver: Cirrhotic morphology Biliary: No bile duct dilation. The gallbladder appears mildly distended with possible wall thickening, similar to prior study. Spleen: No mass. Craniocaudal measurement of 17.6 cm Pancreas: No mass or duct dilation. Adrenals: No mass. Kidneys: Mild/moderate right-sided hydronephrosis. Right-sided ureteral stent appears appropriately positioned. Mild urothelial thickening is noted in the right collecting system. Nonobstructing 8 mm calculus in the lower pole kidney. The left kidney is unremarkable. GI tract: No dilation or wall thickening. Lymph nodes: No abdominal or pelvic lymphadenopathy. Mesentery/Peritoneum: Similar volume of ascites. Retroperitoneum: No mass. Vasculature: Recanalization of the umbilical vein. Pelvis: No mass, ascites or fluid collection. The uterus is present. Bones/Soft Tissues: Degenerative changes. Lower thorax: Unremarkable. Localizer images: No additional findings. IMPRESSION: Right-sided hydronephrosis with nephroureteral stent and nonobstructing calculus. Similar cirrhotic changes with splenomegaly and ascites. Similar appearance of the gallbladder which is nonspecific especially in the setting of ascites. If there is concern for cholecystitis, ultrasound or HIDA scan may be of benefit. Non Destructive Testing Scientist: POOJA Transcribe Date/Time: Jun 05 2024 3:32A Dictated by : ROBIN CLARK MD This examination was interpreted and the report reviewed and electronically signed by: ROBIN CLARK MD on Jun 05 2024 3:39AM EST [id number] Normal [facility] ED NOTEon 06-05-2024 ED NOTE HNO ID: [id number] Author: NE VELÁZQUEZ CT Service: Emergency Medicine Author Type: Clinical Systems Developer Type: ED Notes Filed: 06/07/2024 17:38 Note Text: Emergency Services: ED Call Back Questionnaire SERVICE DATE: 06/04/2024 Are you feeling better? No Any questions about discharge instructions and follow-up care? No Were you able to make a follow up appointment? Yes Do you have any further questions? No Is there anything that we could have done differently to improve your ED visit? No SIGNATURE: SARIAH Schulz PATIENT NAME: Carolina Hightower DATE: June 07, 2024 TIME: 5:37 PM Normal [facility] ED NOTE HNO ID: [id number] Author: GAETANO HAAS RN Service: Nursing Author Type: Registered Nurse Type: ED Notes Filed: 06/05/2024 03:01 Note Text: Report given to NASH Quezada. Normal [facility] Comprehensive metabolic 2000 panelon 06-04-2024 Albumin [Mass/Vol] 3.1 g/dL Low 3.9-4.9 [facility] Comment on above: Order Comment: Speci men Type: BLOOD SPECIMENOrdering Facility: [facility] Address: [address] [place] [address] Performed By: #### 1 9123-9, 3040-3, 80703-3 ####[facility] LABORATORYCLIA [id number] [place] [address] [place] [facility] ALP [Catalytic activity/Vol] 146 U/L High 34-123 [facility] Comment on above: Order Comment: Speci men Type: BLOOD SPECIMENOrdering Facility: [facility] Address: [address] [place] [address] Performed By: #### 1 9123-9, 3040-3, 74077-4 ####[facility] LABORATORYCLIA [id number] [address] STATES OF [facility] ALT With P-5'-P [Catalytic activity/Vol] 84 U/L High 7-38 [facility] Comment on above: Order Comment: Speci men Type: BLOOD SPECIMENOrdering Facility: [facility] Address: [address] [place] [address] Performed By: #### 1 9123-9, 3040-3, 79670-7 ####[facility] LABORATORYCLIA [id number] [address] STATES OF [facility] Anion gap [Moles/Vol] 10 mmol/L Normal 8-15 [facility] Comment on above: Order Comment: Speci men Type: BLOOD SPECIMENOrdering Facility: [facility] Address: [address] [place] [address] Performed By: #### 1 9123-9, 3040-3, 72725-4 ####[facility] LABORATORYCLIA [id number] [place] [address] [place] AST With P-5'-P [Catalytic activity/Vol] 129 U/L High 13-35 [facility] Comment on above: Order Comment: Speci men Type: BLOOD SPECIMENOrdering Facility: [facility] Address: [facility] [place] [address] Performed By: #### 1 9123-9, 3039-3, ####[facility] LABORATORYCLIA [id number] [place] [address] [place] Bilirubin [Mass/Vol] 2.2 mg/dL High 0.2-1.3 [facility] Comment on above: Order Comment: Speci men Type: BLOOD SPECIMENOrdering Facility: [facility] Address: [address] [place] [address] Performed By: #### 1 9123-9, 3, ####[facility]ORATORYCLIA [id number] [place] [address] [place] Calcium [Mass/Vol] 9.0 mg/dL Normal 8.5-10.2 [facility] Comment on above: Order Comment: Speci men Type: BLOOD SPECIMENOrdering Facility: [facility] Address: [address] [place] [address] Performed By: #### 1 9123-9, 3, ####[facility]ORATORYCLIA [id number] [place] [address] [place] Chloride [Moles/Vol] 105 mmol/L Normal 98-107 [facility] Comment on above: Order Comment: Speci men Type: BLOOD SPECIMENOrdering Facility: [facility] Address: [address] [place] [address] Performed By: #### 1 9123-9, 3039-3, 52673-2 ####[facility]ATORYCLIA [id number] [place] [address] [place] CO2 [Moles/Vol] 23 mmol/L Normal 22-30 [facility] Comment on above: Order Comment: Speci men Type: BLOOD SPECIMENOrdering Facility: [facility] Address: [address] [place] [address] Performed By: #### 1 9123-9, 3040-3, 53032-6 ####[facility]ENTERCLIA [id number] [place] [id number] [place] [facility] Creatinine [Mass/Vol] 0.91 mg/dL Normal 0.58-0.96 [facility] Comment on above: Order Comment: Speci men Type: BLOOD SPECIMENOrdering Facility: [facility] Address: [address] [place] [address] Performed By: #### 1 9123-9, 3040-3, 44451-2 ####[facility]PITALIA [id number] [address] Creatinine and Glomerular filtration rate.predicted panel (S/P/Bld) 77 mL/min/1.73m??? Normal >=60 [facility] Comment on above: Order Comment: Cole lamas Type: BLOOD SPECIMENOrdering Facility: [facility] Address: [address] [place] [address] Result Comment: Connie mated Glomerular Filtration Rate [...] accurately reflect actual GFR. Performed By: #### 1 9123-9, 3040-3, 30134-4 ####[facility]ORATORYCLIA [id number] [place] [id number] [place] Glucose [Mass/Vol] 91 mg/dL Normal 74-99 [facility] Comment on above: Order Comment: Yeseniai men Type: BLOOD SPECIMENOrdering Facility: [facility] Address: [address] [place] [address] Result Comment: The [place] Diabetes Association (ADA) provides guidance for cutoff [...] Standards of Medical Care in Diabetes 2016, [place] [employer]. Diabetes Care. 2016.39(Suppl 1). Performed By: #### 1 9123-9, 0-3, 88767-8 ####[facility]ORATORYCLIA [id number] [place] [address] [place] Potassium [Moles/Vol] 3.7 mmol/L Normal 3.7-5.1 [facility] Comment on above: Order Comment: Cole lamas Type: BLOOD SPECIMENOrdering Facility: [facility] Address: [address] [place] [address] Performed By: #### 1 9123-9, 3, 26768-3 ####[facility] CENTERCLIA [id number] [place] [address] [place] Protein [Mass/Vol] 7.0 g/dL Normal 6.3-8.0 [facility] Comment on above: Order Comment: Cole lamas Type: BLOOD SPECIMENOrdering Facility: [facility] Address: [address] [place] [address] Performed By: #### 1 9123-9, 3, 31427-0 ####[facility]ATORYCLIA [id number] [place] [address] [place] Sodium [Moles/Vol] 138 mmol/L Normal 136-144 [facility] Comment on above: Order Comment: Cole lamas Type: BLOOD SPECIMENOrdering Facility: [facility] Address: [address] [place] [address] Performed By: #### 1 9123-9, 0-3, 35994-9 ####[facility]ATORYCLIA [id number] [place] [address] [place] Urea nitrogen [Mass/Vol] 13 mg/dL Normal 7-21 [facility] Comment on above: Order Comment: Speci men Type: BLOOD SPECIMENOrdering Facility: [facility] Address: [address] [place] [address] Performed By: #### 1 9123-9, 3040-3, 16790-3 ####[facility]ORATORYCLIA [id number] [address] OF [facility] ED NOTEon 06-04-2024 ED NOTE HNO ID: [id number] Author: LYNN BEDOYA MD Service: ? Author Type: Physician Type: ED Notes Filed: 06/05/2024 05:52 Note Text: Chart reviewed showing PMHx Hepatitis C, chronic back pain, cirrhosis. She had recent hospitalization at [facility] [place] with cirrhosis and R ureterolithiasis s/p stenting. Pt presenting for a variety of complaints. She reports that she was just d/c'd from [facility] on Tuesday where she had stent for kidney stone. She reports some continued intermittent pain and hematuria. 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 She reports feeling of incomplete urinary emptying. She reports continued b/l LE edema and abd distension/bloating. She reports compliance with diuretics though is unsure of dosing. She reports that she was urinating well in the hospital on IV diuresis. No fever. She reports that she has a chin lesion that she 'keeps picking' and wants us to look at it. Well-appearing Heart RRR Lungs no respiratory distress or cyanosis Distal pulses intact Abd soft, ND. Mild suprapubic TTP without rebound or guarding. Minimal fluid wave 2+ b/l LE edema Chin with appearance of scab that was deroofed without surrounding erythema or drainage CBC shows no significant leukocytosis or severe anemia CMP shows elevated liver values consistent with baseline without electrolyte deranagements or renal disturbance Mg mildly low UA shows questionable UTI CT A/P shows known kidney stone with stent in appropriate position and ascites without acute process Magnesium supplemented. Urine culture sent. All questions answered. Pt understands and agrees w/ the plan. Pt d/c'd w/ script for keflex and increased diuretics and instructions to f/u w/ PCP. Lynn Bedoya MD Normal [facility] ED NOTE HNO ID: [id number] Author: TOD JAMISON RN Service: ? Author Type: Registered Nurse Type: ED Notes Filed: 06/04/2024 23:07 Note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 Performed By: #### L 100.0100, L500.4050 ####[facility] [address] [place], [address] Potassium [Moles/Vol] 3.5 mmol/L Normal 3.5-5.1 [facility] Comment on above: Performed By: #### L 100.0100, L500.4050 ####[facility] [address] [place], [address] Sodium [Moles/Vol] 139 mmol/L Normal 136-145 [facility] Comment on above: Performed By: #### L 100.0100, L500.4050 ####[facility] [address] [place], [address] T PROT 5.9 g/dL Low 6.4-8.[address] [facility] Comment on above: Performed By: #### L 100.0100, L500.4050 ####[facility] [address] [place], [address] Urea nitrogen [Mass/Vol] 8 mg/dL Normal 7-[address] [facility] Comment on above: Performed By: #### L 100.0100, L500.4050 ####[facility] [address] [place], [address] Discharge Instructionon 0 Discharge Instruction Normal [facility] Urine Cultureon 05-31-2024 URC Culture exhibits no growth. Normal [facility] Comment on above: Performed By: #### M 100.2200 ####[facility] [address] [place], [address] Emergency Department Summary on 05-30-2024 Emergency Department Summary Normal [facility] Glucose, Body Fluidon 2023 GLU,BF 30 mg/dL Invalid Interpretation Code 40-[address] [facility] Comment on above: Result Comment: CRIT ICAL VALUE VERIFIED. CALLED TO [id number]/04/24 0449 Obed Shankar.RESULTS READ BACK BY SAME. Performed By: #### L 200.0200, M100.2900, L503.0300, L503.0100, M100.2000, M100.4001 ####[facility] [address] [place], [address] Gram Stainon 05-30-2024 GS Centrifuged Specimen ? Unable to centrifuge specimen due to insufficient volume. Gram Stain 2+ White Blood Cells 3+ Gram negative rods 2+ Gram positive cocci Normal [facility] Comment on above: Performed By: #### L 200.0200, M100.2900, L503.0300, L503.0100, M100.2000, M100.4001 ####[facility] [address] [place], [address] H AND P Exam - Hospitaliston 05-30-2024 H&P Exam - Hospitalist Normal [facility] Liver Profileon 05-30-2024 Albumin [Mass/Vol] 2.3 g/dL Low 3.2-5.0 [facility] Comment on above: Performed By: #### L 500.3400 ####[facility] [address] [place], [address] ALK P 130 U/L High 45-[address] [facility] Comment on above: Performed By: #### L 500.3400 ####[facility] [address] [place], [address] ALT [Catalytic activity/Vol] 99 U/L High 13-[address] [facility] Comment on above: Performed By: #### L 500.3400 ####[facility] [address] [place], [address] AST [Catalytic activity/Vol] 147 U/L High 15-[address] [facility] Comment on above: Performed By: #### L 500.3400 ####[facility] [address] [place], [address] Bilirubin [Mass/Vol] 1.70 mg/dL High 0.20-1.00 [facility] Comment on above: Result Comment: For patients on eltrombopag therapy, use of Dimension [place] TBIL is not recommended. Performed By: #### L 500.3400 ####[facility] [address] [place], [address] Bilirubin.direct [Mass/Vol] 0.76 mg/dL High 0.00-0.[address] [facility] Comment on above: Performed By: #### L 500.3400 ####[facility] [address] [place], [address] Globulin (S) [Mass/Vol] 3.8 g/dL Normal 2.2-4.[address] [facility] Comment on above: Performed By: #### L 500.3400 ####[facility] [address] [place], [address] T PROT 6.1 g/dL Low 6.4-8.[address] [facility] Comment on above: Performed By: #### L 500.3400 ####[facility] [address] [place], [address] M R Staph Aureus DNA by PCRo n 05-30-2024 MRSA DNA ASSAY Normal Negative [facility] Comment on above: Order Comment: SABINE RICK, PER MICRO MRSA PCR CANNOT BE RUN OFF OFPARACENTESIS SPECIMENPLEASE OBTAIN MRSA TESTING ON ASCITIC FLUID Result Comment: PT D ISCHARGED Performed By: #### L 8200.1000 ####[facility] [address] [place], [address] PROBE CHECK Normal [facility] Comment on above: Order Comment: PLEAS E COLLECT, PER MICRO MRSA PCR CANNOT BE RUN OFF OFPARACENTESIS SPECIMENPLEASE OBTAIN MRSA TESTING ON ASCITIC FLUID Result Comment: PT D ISCHARGED Performed By: #### L 8200.1000 ####[facility] [address] [place], [address] [facility] Comment on above: Order Comment: PLEAS E COLLECT, PER MICRO MRSA PCR CANNOT BE RUN OFF OFPARACENTESIS SPECIMENPLEASE OBTAIN MRSA TESTING ON ASCITIC FLUID Result Comment: PT D ISCHARGED Performed By: #### L 8200.1000 ####[facility] [address] [place], [address] Magnesiumon 05-30-2024 Magnesium [Mass/Vol] 2.0 mg/dL Normal 1.6-2.6 [facility] Comment on above: Order Comment: Comme nts: May add to ED labsComments: may add to ED labs Performed By: #### L 509.7000, L501.5200, L501.2300 ####[facility] [address] [place], [address] Phosphoruson 05-30-2024 Phosphate [Mass/Vol] 1.9 mg/dL Low 2.5-4.9 [facility] Comment on above: Order Comment: Comme nts: May add to ED labsComments: may add to ED labs Performed By: #### L 509.7000, L501.5200, L501.2300 ####[facility] [address] [place], [address] Procalcitoninon 05-30-2024 Procalcitonin 0.11 ng/mL High 0.00-0.[address] [facility] Comment on above: Result Comment: A pr ocalcitonin (PCT) level above 2.0 ng/mL on the first day of ICU admission is associated with a high risk for progression to severe sepsis and/or septic shock. A PCT level below 0.5 ng/mL on the first day of ICU admission is associated with a low risk for progression to severe and/or septic shock. Note: Concentrations <0.5 ng/mL do not exclude an infection on account of localized infections (without systemic signs) which can be associated with such low concentrations, or a systemic infection in its initial stages (<6 hours). Furthermore, increased procalcitonin can occur without infection. PCT concentrations between 0.5 and 2.0 ng/mL should be interpreted taking into account the patient's history. It is recommended to retest PCT within 6-24 hours if any concentrations <2 ng/mL are obtained. Performed By: #### L 509.7000, L501.5200, L501.2300 ####[facility] [address] [place], [address] Protein, Body Fluidon 2023 Protein [Mass/Vol] 0.4 g/dL Normal Not Establ. [facility] Comment on above: Performed By: #### L 200.0200, M100.2900, L503.0300, L503.0100, M100.2000, M100.4001 ####[facility] [address] [place], [address] Urine Drug Screen (VISTA)on 05-30-2024 AMPHETAMINES Negative Normal <1000 ng/mL [facility] Comment on above: Performed By: #### L 505.5000 ####[facility] [address] [place], [address] BARBITIURATES Negative Normal < 200 ng/mL [facility] Comment on above: Performed By: #### L 505.5000 ####[facility] [address] [place], [address] BENZODIAZIPINE Negative Normal < 200 ng/mL [facility] Comment on above: Performed By: #### L 505.5000 ####[facility] [address] [place], [address] COCAINE Negative Normal < 300 ng/mL [facility] Comment on above: Performed By: #### L 505.5000 ####[facility] [address] [place], [address] ECSTACY Negative Normal < 500 ng/mL [facility] Comment on above: Performed By: #### L 505.5000 ####[facility] [address] [place], [address] METHADONE Negative Normal < 300 ng/mL [facility] Comment on above: Performed By: #### L 505.5000 ####[facility] [address] [place], [address] OPIATES Negative Normal < 300 ng/mL [facility] Comment on above: Performed By: #### L 505.5000 ####[facility] [address] [place], [address] PCP Negative Normal < 25 ng/mL [facility] Comment on above: Performed By: #### L 505.5000 ####[facility] [address] [place], [address] THC Positive Abnormal < 50 ng/mL [facility] Comment on above: Performed By: #### L 505.5000 ####[facility] [address] [place], [address] VISTA UDS PH [address] [facility] Comment on above: Performed By: #### L 505.5000 ####[facility] [address] [place], [address] CBC W/Diff, Automatedon PLT EST MKD DEC Normal ADEQ [facility] Comment on above: Performed By: #### L 700.6800, L500.4050, L100.0100 ####[facility] [address] [place], [address] Comprehensive Metabolic Prof ilon 05-29-2024 Albumin [Mass/Vol] 2.7 g/dL Low 3.2-5.0 [facility] Comment on above: Performed By: #### L 700.6800, L500.4050, L100.0100 ####[facility] [address] [place], [address] Albumin/Globulin [Mass ratio] 0.6 {ratio} Low 0.9-2.[address] [facility] Comment on above: Performed By: #### L 700.6800, L500.4050, L100.0100 ####[facility] [address] [place], [address] ALK P 175 U/L High 45-[address] [facility] Comment on above: Performed By: #### L 700.6800, L500.4050, L100.0100 ####[facility] [address] [place], [address] ALT [Catalytic activity/Vol] 109 U/L High 13-[address] [facility] Comment on above: Performed By: #### L 700.6800, L500.4050, L100.0100 ####[facility] [address] [place], [address] AST [Catalytic activity/Vol] 159 U/L High 15-[address] [facility] Comment on above: Performed By: #### L 700.6800, L500.4050, L100.0100 ####[facility] [address] [place], [address] Bilirubin [Mass/Vol] 1.40 mg/dL High 0.20-1.00 [facility] Comment on above: Result Comment: For patients on eltrombopag therapy, use of Dimension [place] TBIL is not recommended. Performed By: #### L 700.6800, L500.4050, L100.0100 ####[facility] [address] [place], [address] BUN/CRE 10.4 RATIO Normal 10-[address] [facility] Comment on above: Performed By: #### L 700.6800, L500.4050, L100.0100 ####[facility] [address] [place], [id number] CA,Total 8.9 mg/dL Normal 8.5-10.[address] [facility] Comment on above: Performed By: #### L 700.6800, L500.4050, L100.0100 ####[facility] [address] [place], [address] Chloride [Moles/Vol] 109 mmol/L High 98-107 [facility] Comment on above: Performed By: #### L 700.6800, L500.4050, L100.0100 ####[facility] [address] [place], [address] CO2 [Moles/Vol] 25.0 mmol/L Normal 21.0-32.[address] [facility] Comment on above: Performed By: #### L 700.6800, L500.4050, L100.0100 ####[facility] [address] [place], [address] Creatinine [Mass/Vol] 0.96 mg/dL Normal 0.55-1.02 [facility] Comment on above: Result Comment: The validity of the calculated GFR GFRAA in patients over70 years has not been determined. Clinical correlation isessential. Performed By: #### L 700.6800, L500.4050, L100.0100 ####[facility] [address] [place], [address] ECRCL 67.21 ml/min Normal [facility] Comment on above: Performed By: #### L 700.6800, L500.4050, L100.0100 ####[facility] [address] [place], [address] EST GFR - AA 79 mL/min Normal >[address] [facility] Comment on above: Result Comment: Afri can [place] GFR Calc Performed By: #### L 700.6800, L500.4050, L100.0100 ####[facility] [address] [place], [address] GAP 5 Normal 5-[address] [facility] Comment on above: Performed By: #### L 700.6800, L500.4050, L100.0100 ####[facility] [address] [place], [address] GFR/1.73 sq M.predicted among non-blacks MDRD (S/P/Bld) [Vol rate/Area] 65 mL/min/{1.73_m2} Normal >[address] [facility] Comment on above: Result Comment: Non- GFR Calc Performed By: #### L 700.6800, L500.4050, L100.0100 ####[facility] [address] [place], [address] Globulin (S) [Mass/Vol] 4.7 g/dL High 2.2-4.[address] [facility] Comment on above: Performed By: #### L 700.6800, L500.4050, L100.0100 ####[facility] [address] [place], [address] Glucose [Mass/Vol] 107 mg/dL High 74-106 [facility] Comment on above: Result Comment: Fast ing Glucose result from 100 to 125 mg/dLsuggests IMPAIRED HOMEOSTASIS per A.D.A. criteria. Performed By: #### L 700.6800, L500.4050, L100.0100 ####[facility] [address] [place], [address] Potassium [Moles/Vol] 3.6 mmol/L Normal 3.5-5.1 [facility] Comment on above: Performed By: #### L 700.6800, L500.4050, L100.0100 ####[facility] [address] [place], [address] Sodium [Moles/Vol] 139 mmol/L Normal 136-145 [facility] Comment on above: Performed By: #### L 700.6800, L500.4050, L100.0100 ####[facility] [address] [place], [address] T PROT 7.4 g/dL Normal 6.4-8.[address] [facility] Comment on above: Performed By: #### L 700.6800, L500.4050, L100.0100 ####[facility] [address] [place], [address] Urea nitrogen [Mass/Vol] 10 mg/dL Normal 7-[address] [facility] Comment on above: Performed By: #### L 700.6800, L500.4050, L100.0100 ####[facility] [address] [place], [address] Lipaseon 05-29-2024 Lipase [Catalytic activity/Vol] 79 U/L High 13-[address] [facility] Comment on above: Result Comment: My jimenez note:LIPASE revised reference range effective 23.New Lipase methodology. Expected to produce lower valuesthan the previous assay method.NEW Reference Range: 13 - 75 U/L Performed By: #### L 501.2450 ####[facility] [address] [place], [address] ,Serum,hCG Quali.on 05-29-2024 HCG, SERUM QUAL Negative Normal [facility] Comment on above: Performed By: #### L 700.6800, L500.4050, L100.0100 ####[facility] [address] [place], [address] Urinalysis, Completeon 05-29 BACTERIA 1+ /hpf Normal None Seen [facility] Comment on above: Order Comment: COLOR OF URINE MAY AFFECT DIPSTICK RESULTS.GEOSPATIAL APPLICATIONS DEVELOPER TO SPECIFY Performed By: #### L 400.0001 ####[facility] [address] [place], [address] CA OX CRYSTAL RARE Normal [facility] Comment on above: Order Comment: COLOR OF URINE MAY AFFECT DIPSTICK RESULTS.GEOSPATIAL APPLICATIONS DEVELOPER TO SPECIFY Performed By: #### L 400.0001 ####[facility] [address] [place], [address] EPI,RENAL 0-5 SEEN Normal 0-[address] [facility] Comment on above: Order Comment: COLOR OF URINE MAY AFFECT DIPSTICK RESULTS.GEOSPATIAL APPLICATIONS DEVELOPER TO SPECIFY Performed By: #### L 400.0001 ####[facility] [address] [place], [address] WBC 25-50 SEEN Normal 0-[address] [facility] Comment on above: Order Comment: COLOR OF URINE MAY AFFECT DIPSTICK RESULTS.GEOSPATIAL APPLICATIONS DEVELOPER TO SPECIFY Performed By: #### L 400.0001 ####[facility] [address] [place], [address] EPI,SQUAMOUS 5-10 SEEN Normal 5-[address] [facility] Comment on above: Order Comment: COLOR OF URINE MAY AFFECT DIPSTICK RESULTS.GEOSPATIAL APPLICATIONS DEVELOPER TO SPECIFY Performed By: #### L 400.0001 ####[facility] [address] [place], [address] RBC > 100 SEEN Normal 0-[address] [facility] Comment on above: Order Comment: COLOR OF URINE MAY AFFECT DIPSTICK RESULTS.GEOSPATIAL APPLICATIONS DEVELOPER TO SPECIFY Result Comment: Micr oscopic field is filled. Other elements may beobscured.ACETIC ACID ADDED FOR FURTHER MICROSCOPIC ANALYSIS Performed By: #### L 400.0001 ####[facility] [address] [place], [address] Mucus Ql (Urine sed) 0 SEEN Normal [facility] Comment on above: Order Comment: COLOR OF URINE MAY AFFECT DIPSTICK RESULTS.GEOSPATIAL APPLICATIONS DEVELOPER TO SPECIFY Performed By: #### L 400.0001 ####[facility] [address] [place], [address] Basic Metabolic Profile (BMP )on 05-26-2024 BUN Normal 7-[address] [facility] Comment on above: Result Comment: Canc elled via OM: Order cancelled - Patient discharged Performed By: #### L 100.0100, L500.2500 ####[facility] [address] [place], [address] BUN/CRE Normal 10-[address] [facility] Comment on above: Result Comment: Canc elled via OM: Order cancelled - Patient discharged Performed By: #### L 100.0100, L500.2500 ####[facility] [address] [place], [address] CA,Total Normal 8.5-10.[address] [facility] Comment on above: Result Comment: Canc elled via OM: Order cancelled - Patient discharged Performed By: #### L 100.0100, L500.2500 ####[facility] [address] [place], [address] CL Normal 98-[address] [facility] Comment on above: Result Comment: Canc elled via OM: Order cancelled - Patient discharged Performed By: #### L 100.0100, L500.2500 ####[facility] [address] [place], [address] CO2 Normal 21.0-32.[address] [facility] Comment on above: Result Comment: Canc elled via OM: Order cancelled - Patient discharged Performed By: #### L 100.0100, L500.2500 ####[facility] [address] [place], [address] CREAT,SERUM Normal 0.55-1.[address] [facility] Comment on above: Result Comment: Canc elled via OM: Order cancelled - Patient discharged Performed By: #### L 100.0100, L500.2500 ####[facility] [address] [place], [address] EST GFR Normal >[address] [facility] Comment on above: Result Comment: Canc elled via OM: Order cancelled - Patient discharged Performed By: #### L 100.0100, L500.2500 ####[facility] [address] [place], [address] EST GFR - AA Normal >[address] [facility] Comment on above: Result Comment: Canc elled via OM: Order cancelled - Patient discharged Performed By: #### L 100.0100, L500.2500 ####[facility] [address] [place], [address] GAP Normal 5-[address] [facility] Comment on above: Result Comment: Canc elled via OM: Order cancelled - Patient discharged Performed By: #### L 100.0100, L500.2500 ####[facility] [address] [place], [address] GLU Normal 74-[address] [facility] Comment on above: Result Comment: Canc elled via OM: Order cancelled - Patient discharged Performed By: #### L 100.0100, L500.2500 ####[facility] [address] [place], [address] Potassium Normal 3.5-5.[address] [facility] Comment on above: Result Comment: Canc elled via OM: Order cancelled - Patient discharged Performed By: #### L 100.0100, L500.2500 ####[facility] [address] [place], [address] Basic Metabolic Profile (BMP) Normal 136-[address] [facility] Comment on above: Result Comment: Canc elled via OM: Order cancelled - Patient discharged Performed By: #### L 100.0100, L500.2500 ####[facility] [address] [place], [address] CBC W/Diff, Automatedon 08-3 Absolute Neut Normal 2.0-7.[address] [facility] Comment on above: Result Comment: Canc elled via OM: Order cancelled - Patient discharged Performed By: #### L 100.0100, L500.2500 ####[facility] [address] [place], [address] HCT Normal 37-[address] [facility] Comment on above: Result Comment: Canc elled via OM: Order cancelled - Patient discharged Performed By: #### L 100.0100, L500.2500 ####[facility] [address] [place], [address] HGB Normal 12.0-15.[address] [facility] Comment on above: Result Comment: Canc elled via OM: Order cancelled - Patient discharged Performed By: #### L 100.0100, L500.2500 ####[facility] [address] [place], [address] MCH Normal 27.0-32.[address] [facility] Comment on above: Result Comment: Canc elled via OM: Order cancelled - Patient discharged Performed By: #### L 100.0100, L500.2500 ####[facility] [address] [place], [address] MCHC Normal 32-[address] [facility] Comment on above: Result Comment: Canc elled via OM: Order cancelled - Patient discharged Performed By: #### L 100.0100, L500.2500 ####[facility] [address] [place], [address] MCV Normal 81-[address] [facility] Comment on above: Result Comment: Canc elled via OM: Order cancelled - Patient discharged Performed By: #### L 100.0100, L500.2500 ####[facility] [address] [place], [address] NEUT% Normal 47-[address] [facility] Comment on above: Result Comment: Canc elled via OM: Order cancelled - Patient discharged Performed By: #### L 100.0100, L500.2500 ####[facility] [address] [place], [address] PLT Normal 150-[address] [facility] Comment on above: Result Comment: Canc elled via OM: Order cancelled - Patient discharged Performed By: #### L 100.0100, L500.2500 ####[facility] [address] [place], [address] RBC Normal 4.2-5.[address] [facility] Comment on above: Result Comment: Canc elled via OM: Order cancelled - Patient discharged Performed By: #### L 100.0100, L500.2500 ####[facility] [address] [place], [address] RDW CV Normal 11.6-14.[address] [facility] Comment on above: Result Comment: Canc elled via OM: Order cancelled - Patient discharged Performed By: #### L 100.0100, L500.2500 ####[facility] [address] [place], [address] RDW SD Normal 35.1-43.[address] [facility] Comment on above: Result Comment: Canc elled via OM: Order cancelled - Patient discharged Performed By: #### L 100.0100, L500.2500 ####[facility] [address] [place], [address] WBC Normal 4.4-11.[address] [facility] Comment on above: Result Comment: Canc elled via OM: Order cancelled - Patient discharged Performed By: #### L 100.0100, L500.2500 ####[facility] [address] [place], [id number] Basic Metabolic Profile (BMP )on 05-25-2024 BUN Normal 7-[address] [facility] Comment on above: Result Comment: Canc elled via OM: Order cancelled - Patient discharged Performed By: #### L 500.2500, L100.0100 ####[facility] [address] [place], [address] BUN/CRE Normal 10-[address] [facility] Comment on above: Result Comment: Canc elled via OM: Order cancelled - Patient discharged Performed By: #### L 500.2500, L100.0100 ####[facility] [address] [place], [address] CA,Total Normal 8.5-10.[address] [facility] Comment on above: Result Comment: Canc elled via OM: Order cancelled - Patient discharged Performed By: #### L 500.2500, L100.0100 ####[facility] [address] [place], [address] CL Normal 98-[address] [facility] Comment on above: Result Comment: Canc elled via OM: Order cancelled - Patient discharged Performed By: #### L 500.2500, L100.0100 ####[facility] [address] [place], [address] CO2 Normal 21.0-32.[address] [facility] Comment on above: Result Comment: Canc elled via OM: Order cancelled - Patient discharged Performed By: #### L 500.2500, L100.0100 ####[facility] [address] [place], [address] CREAT,SERUM Normal 0.55-1.[address] [facility] Comment on above: Result Comment: Canc elled via OM: Order cancelled - Patient discharged Performed By: #### L 500.2500, L100.0100 ####[facility] [address] [place], [address] EST GFR Normal >[address] [facility] Comment on above: Result Comment: Canc elled via OM: Order cancelled - Patient discharged Performed By: #### L 500.2500, L100.0100 ####[facility] [address] [place], [address] EST GFR - AA Normal >[address] [facility] Comment on above: Result Comment: Canc elled via OM: Order cancelled - Patient discharged Performed By: #### L 500.2500, L100.0100 ####[facility] [address] [place], [address] GAP Normal 5-[address] [facility] Comment on above: Result Comment: Canc elled via OM: Order cancelled - Patient discharged Performed By: #### L 500.2500, L100.0100 ####[facility] [address] [place], [address] GLU Normal 74-[address] [facility] Comment on above: Result Comment: Canc elled via OM: Order cancelled - Patient discharged Performed By: #### L 500.2500, L100.0100 ####[facility] [address] [place], [address] Potassium Normal 3.5-5.[address] [facility] Comment on above: Result Comment: Canc elled via OM: Order cancelled - Patient discharged Performed By: #### L 500.2500, L100.0100 ####[facility] [address] [place], [address] Basic Metabolic Profile (BMP) Normal 136-[address] [facility] Comment on above: Result Comment: Canc elled via OM: Order cancelled - Patient discharged Performed By: #### L 500.2500, L100.0100 ####[facility] [address] [place], [address] CBC W/Diff, Automatedon 08-3 0-2023 Absolute Neut Normal 2.0-7.[address] [facility] Comment on above: Result Comment: Canc elled via OM: Order cancelled - Patient discharged Performed By: #### L 500.2500, L100.0100 ####[facility] [address] [place], [address] HCT Normal 37-[address] [facility] Comment on above: Result Comment: Canc elled via OM: Order cancelled - Patient discharged Performed By: #### L 500.2500, L100.0100 ####[facility] [address] [place], [address] HGB Normal 12.0-15.[address] [facility] Comment on above: Result Comment: Canc elled via OM: Order cancelled - Patient discharged Performed By: #### L 500.2500, L100.0100 ####[facility] [address] [place], [address] MCH Normal 27.0-32.[address] [facility] Comment on above: Result Comment: Canc elled via OM: Order cancelled - Patient discharged Performed By: #### L 500.2500, L100.0100 ####[facility] [address] [place], [address] MCHC Normal 32-[address] [facility] Comment on above: Result Comment: Canc elled via OM: Order cancelled - Patient discharged Performed By: #### L 500.2500, L100.0100 ####[facility] [address] [place], [address] MCV Normal 81-[address] [facility] Comment on above: Result Comment: Canc elled via OM: Order cancelled - Patient discharged Performed By: #### L 500.2500, L100.0100 ####[facility] [address] [place], [address] NEUT% Normal 47-[address] [facility] Comment on above: Result Comment: Canc elled via OM: Order cancelled - Patient discharged Performed By: #### L 500.2500, L100.0100 ####[facility] [address] [place], [address] PLT Normal 150-[address] [facility] Comment on above: Result Comment: Canc elled via OM: Order cancelled - Patient discharged Performed By: #### L 500.2500, L100.0100 ####[facility] [address] [place], [address] RBC Normal 4.2-5.[address] [facility] Comment on above: Result Comment: Canc elled via OM: Order cancelled - Patient discharged Performed By: #### L 500.2500, L100.0100 ####[facility] [address] [place], [address] RDW CV Normal 11.6-14.[address] [facility] Comment on above: Result Comment: Canc elled via OM: Order cancelled - Patient discharged Performed By: #### L 500.2500, L100.0100 ####[facility] [address] [place], [address] RDW SD Normal 35.1-43.[address] [facility] Comment on above: Result Comment: Canc elled via OM: Order cancelled - Patient discharged Performed By: #### L 500.2500, L100.0100 ####[facility] [address] [place], [address] WBC Normal 4.4-11.[address] [facility] Comment on above: Result Comment: Canc elled via OM: Order cancelled - Patient discharged Performed By: #### L 500.2500, L100.0100 ####[facility] [address] [place], [id number] Basic Metabolic Profile (BMP )on 05-24-2024 BUN Normal 7-[address] [facility] Comment on above: Result Comment: Canc elled via OM: Order cancelled - Patient discharged Performed By: #### L 500.2500, L100.0100 ####[facility] [address] [place], [address] BUN/CRE Normal 10-[address] [facility] Comment on above: Result Comment: Canc elled via OM: Order cancelled - Patient discharged Performed By: #### L 500.2500, L100.0100 ####[facility] [address] [place], [address] CA,Total Normal 8.5-10.[address] [facility] Comment on above: Result Comment: Canc elled via OM: Order cancelled - Patient discharged Performed By: #### L 500.2500, L100.0100 ####[facility] [address] [place], [address] CL Normal 98-[address] [facility] Comment on above: Result Comment: Canc elled via OM: Order cancelled - Patient discharged Performed By: #### L 500.2500, L100.0100 ####[facility] [address] [place], [address] CO2 Normal 21.0-32.[address] [facility] Comment on above: Result Comment: Canc elled via OM: Order cancelled - Patient discharged Performed By: #### L 500.2500, L100.0100 ####[facility] [address] [place], [address] CREAT,SERUM Normal 0.55-1.[address] [facility] Comment on above: Result Comment: Canc elled via OM: Order cancelled - Patient discharged Performed By: #### L 500.2500, L100.0100 ####[facility] [address] [place], [address] EST GFR Normal >[address] [facility] Comment on above: Result Comment: Canc elled via OM: Order cancelled - Patient discharged Performed By: #### L 500.2500, L100.0100 ####[facility] [address] [place], [address] EST GFR - AA Normal >[address] [facility] Comment on above: Result Comment: Canc elled via OM: Order cancelled - Patient discharged Performed By: #### L 500.2500, L100.0100 ####[facility] [address] [place], [address] GAP Normal 5-[address] [facility] Comment on above: Result Comment: Canc elled via OM: Order cancelled - Patient discharged Performed By: #### L 500.2500, L100.0100 ####[facility] [address] [place], [address] GLU Normal 74-[address] [facility] Comment on above: Result Comment: Canc elled via OM: Order cancelled - Patient discharged Performed By: #### L 500.2500, L100.0100 ####[facility] [address] [place], [address] Potassium Normal 3.5-5.[address] [facility] Comment on above: Result Comment: Canc elled via OM: Order cancelled - Patient discharged Performed By: #### L 500.2500, L100.0100 ####[facility] [address] [place], [address] Basic Metabolic Profile (BMP) Normal 136-[address] [facility] Comment on above: Result Comment: Canc elled via OM: Order cancelled - Patient discharged Performed By: #### L 500.2500, L100.0100 ####[facility] [address] [place], [address] CBC W/Diff, Automatedon 08-2 Absolute Neut Normal 2.0-7.[address] [facility] Comment on above: Result Comment: Canc elled via OM: Order cancelled - Patient discharged Performed By: #### L 500.2500, L100.0100 ####[facility] [address] [place], [address] HCT Normal 37-[address] [facility] Comment on above: Result Comment: Canc elled via OM: Order cancelled - Patient discharged Performed By: #### L 500.2500, L100.0100 ####[facility] [address] [place], [address] HGB Normal 12.0-15.[address] [facility] Comment on above: Result Comment: Canc elled via OM: Order cancelled - Patient discharged Performed By: #### L 500.2500, L100.0100 ####[facility] [address] [place], [address] MCH Normal 27.0-32.[address] [facility] Comment on above: Result Comment: Canc elled via OM: Order cancelled - Patient discharged Performed By: #### L 500.2500, L100.0100 ####[facility] [address] [place], [address] MCHC Normal 32-[address] [facility] Comment on above: Result Comment: Canc elled via OM: Order cancelled - Patient discharged Performed By: #### L 500.2500, L100.0100 ####[facility] [address] [place], [address] MCV Normal 81-[address] [facility] Comment on above: Result Comment: Canc elled via OM: Order cancelled - Patient discharged Performed By: #### L 500.2500, L100.0100 ####[facility] [address] [place], [address] NEUT% Normal 47-[address] [facility] Comment on above: Result Comment: Canc elled via OM: Order cancelled - Patient discharged Performed By: #### L 500.2500, L100.0100 ####[facility] [address] [place], [address] PLT Normal 150-[address] [facility] Comment on above: Result Comment: Canc elled via OM: Order cancelled - Patient discharged Performed By: #### L 500.2500, L100.0100 ####[facility] [address] [place], [address] RBC Normal 4.2-5.[address] [facility] Comment on above: Result Comment: Canc elled via OM: Order cancelled - Patient discharged Performed By: #### L 500.2500, L100.0100 ####[facility] [address] [place], [address] RDW CV Normal 11.6-14.[address] [facility] Comment on above: Result Comment: Canc elled via OM: Order cancelled - Patient discharged Performed By: #### L 500.2500, L100.0100 ####[facility] [address] [place], [address] RDW SD Normal 35.1-43.[address] [facility] Comment on above: Result Comment: Canc elled via OM: Order cancelled - Patient discharged Performed By: #### L 500.2500, L100.0100 ####[facility] [address] [place], [address] WBC Normal 4.4-11.[address] [facility] Comment on above: Result Comment: Canc elled via OM: Order cancelled - Patient discharged Performed By: #### L 500.2500, L100.0100 ####[facility] [address] [place], [address] Basic Metabolic Profile (BMP )on 05-23-2024 BUN Normal 7-[address] [facility] Comment on above: Result Comment: Canc elled via OM: Order cancelled - Patient discharged Performed By: #### L 100.0100, L500.2500 ####[facility] [address] [place], [address] BUN/CRE Normal 10-[address] [facility] Comment on above: Result Comment: Canc elled via OM: Order cancelled - Patient discharged Performed By: #### L 100.0100, L500.2500 ####[facility] [address] [place], [address] CA,Total Normal 8.5-10.[address] [facility] Comment on above: Result Comment: Canc elled via OM: Order cancelled - Patient discharged Performed By: #### L 100.0100, L500.2500 ####[facility] [address] [facility] [address] CL Normal 98-[address] [facility] Comment on above: Result Comment: Canc elled via OM: Order cancelled - Patient discharged Performed By: #### L 100.0100, L500.2500 ####[facility] [address] [facility] [address] CO2 Normal 21.0-32.[address] [facility] Comment on above: Result Comment: Canc elled via OM: Order cancelled - Patient discharged Performed By: #### L 100.0100, L500.2500 ####[facility] [address] [place], [address] CREAT,SERUM Normal 0.55-1.[address] [facility] Comment on above: Result Comment: Canc elled via OM: Order cancelled - Patient discharged Performed By: #### L 100.0100, L500.2500 ####[facility] [address] [facility] [address] EST GFR Normal >[address] [facility] Comment on above: Result Comment: Canc elled via OM: Order cancelled - Patient discharged Performed By: #### L 100.0100, L500.2500 ####[facility] [address] [place], [address] EST GFR - AA Normal >[address] [facility] Comment on above: Result Comment: Canc elled via OM: Order cancelled - Patient discharged Performed By: #### L 100.0100, L500.2500 ####[facility] [address] [place], [address] GAP Normal 5-[address] [facility] Comment on above: Result Comment: Canc elled via OM: Order cancelled - Patient discharged Performed By: #### L 100.0100, L500.2500 ####[facility] [address] [place], [address] GLU Normal 74-[address] [facility] Comment on above: Result Comment: Canc elled via OM: Order cancelled - Patient discharged Performed By: #### L 100.0100, L500.2500 ####[facility] [address] [place], [address] Potassium Normal 3.5-5.[address] [facility] Comment on above: Result Comment: Canc elled via OM: Order cancelled - Patient discharged Performed By: #### L 100.0100, L500.2500 ####[facility] [address] [place], [address] Basic Metabolic Profile (BMP) Normal 136-[address] [facility] Comment on above: Result Comment: Canc elled via OM: Order cancelled - Patient discharged Performed By: #### L 100.0100, L500.2500 ####[facility] [address] [place], [address] CBC W/Diff, Automatedon 08-2 Absolute Neut Normal 2.0-7.[address] [facility] Comment on above: Result Comment: Canc elled via OM: Order cancelled - Patient discharged Performed By: #### L 100.0100, L500.2500 ####[facility] [address] [place], [address] HCT Normal 37-[address] [facility] Comment on above: Result Comment: Canc elled via OM: Order cancelled - Patient discharged Performed By: #### L 100.0100, L500.2500 ####[facility] [address] [place], [address] HGB Normal 12.0-15.[address] [facility] Comment on above: Result Comment: Canc elled via OM: Order cancelled - Patient discharged Performed By: #### L 100.0100, L500.2500 ####[facility] [address] [place], [address] MCH Normal 27.0-32.[address] [facility] Comment on above: Result Comment: Canc elled via OM: Order cancelled - Patient discharged Performed By: #### L 100.0100, L500.2500 ####[facility] [address] [place], [address] MCHC Normal 32-[address] [facility] Comment on above: Result Comment: Canc elled via OM: Order cancelled - Patient discharged Performed By: #### L 100.0100, L500.2500 ####[facility] [address] [place], [address] MCV Normal 81-[address] [facility] Comment on above: Result Comment: Canc elled via OM: Order cancelled - Patient discharged Performed By: #### L 100.0100, L500.2500 ####[facility] [address] [place], [address] NEUT% Normal 47-[address] [facility] Comment on above: Result Comment: Canc elled via OM: Order cancelled - Patient discharged Performed By: #### L 100.0100, L500.2500 ####[facility] [address] [place], [address] PLT Normal 150-[address] [facility] Comment on above: Result Comment: Canc elled via OM: Order cancelled - Patient discharged Performed By: #### L 100.0100, L500.2500 ####[facility] [address] [place], [address] RBC Normal 4.2-5.[address] [facility] Comment on above: Result Comment: Canc elled via OM: Order cancelled - Patient discharged Performed By: #### L 100.0100, L500.2500 ####[facility] [address] [place], [address] RDW CV Normal 11.6-14.[address] [facility] Comment on above: Result Comment: Canc elled via OM: Order cancelled - Patient discharged Performed By: #### L 100.0100, L500.2500 ####[facility] [address] [place], [address] RDW SD Normal 35.1-43.[address] [facility] Comment on above: Result Comment: Canc elled via OM: Order cancelled - Patient discharged Performed By: #### L 100.0100, L500.2500 ####[facility] [address] [place], [address] WBC Normal 4.4-11.[address] [facility] Comment on above: Result Comment: Canc elled via OM: Order cancelled - Patient discharged Performed By: #### L 100.0100, L500.2500 ####[facility] [address] [place], [address] CNPNon [facility]2024 [facility] CAROLINA HIGHTOWER ([id number]) 1975 F Date Time Provider Department 05/23/24 DACIA ACOSTA [facility] During your visit today, we recorded the following information about you: Joanie Stahl RN 05/23/2024 2:17 PM Signed Kortney- Timber Harvester Operator at [facility], reports patient had a stent placed and was placed on Bactrim on 05-15-24. Pt can't find the bactrim, and she thought pcp was going to order it again. Advised per chart it does not appear bactrim was ordered by pcp. Kortney states she will check with urology. Kortney reports pt seems confused. Radha Christensen, RN 05/23/2024 2:52 PM Signed See previous message. Kortney, Timber Harvester Operator @ [facility] calling back to say patient lost the Bactrim that was prescribed @ [facility] on 05/15. The prescribing physician is not available and Urologist, Dr. Dawson is [place] of [place]. She is asking if PCP can prescribe the Bactrim? Script was for Bactrim DS 800-160 mg twice daily for 5 days. [facility]. Please let Kortney know if script sent. # [phone]. [facility] [place] Mark D, MD 05/24/2024 10:09 AM Signed OK for Bactrim as ordered MD Favio Acevedo M Robin, RN 05/24/2024 11:21 AM Signed Left detailed vm on identified vm with provider's message below. Radha Christensen RN 05/24/2024 5:37 PM Signed Attempted to contact patient. VM full. 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 [Other] Order(s):sulfamethoxazo le-trimethoprim (BACTRIM DS) 800-160 mg per tabletTake 1 tablet by mouth two times a day for 5 days.Disp: 10 tabletRfl: 0 Prescriptions as of 05/24/2024 - sulfamethoxazole-trimet hoprim (BACTRIM DS) 800-160 mg per tablet Take 1 tablet by mouth two times a day for 5 days. - ibuprofen (MOTRIN) 600 mg tablet Take 1 tablet by mouth every 6 hours as needed for pain. - gabapentin (NEURONTIN) 100 mg capsule Take 1 capsule by mouth two times a day for 180 days. - spironolactone (ALDACTONE) 50 mg tablet Take 1 tablet by mouth two times a day. - furosemide (LASIX) 40 mg tablet Take 1 tablet by mouth once daily. - fluticasone (FLONASE) 50 mcg/actuation nasal spray Use 2 Sprays in each nostril once daily. Rinse mouth after use. - mupirocin (BACTROBAN) 2 % ointment Apply [...] 1 Patch as directed as directed. - ondansetron orally disintegrating (ZOFRAN ODT) 4 mg disintegrating tablet Take 1 tablet by mouth every 6 hours as needed for nausea/vomiting. - albuterol HFA (PROAIR HFA) 90 mcg/actuation inhaler Inhale 2 Puffs as instructed every 4 hours as needed. - pantoprazole DR (PROTONIX) 40 mg tablet Take 1 tablet by mouth twice daily before meals. Take on empty stomach, 1/2 hr before meal. - lactulose (DUPHALAC, CONSTULOSE) 10 gram/15 mL solution Meds Comments as of 05/15/2022: Pt reports she took last dose of doxycycline this morning 05/15/2022 Problem List As Of Date 05/23/2024 Noted Resolved Major depression [F32.9] 04/03/2007 LUMBAGO [...] ordered this encounter Disp Refills Start End SULFAMETHOXAZOLE 800 MG-TRIMETHOPRIM* 10 t* 0 05/24/2024 05/29/2024 Route: ORAL Sig: Take 1 tablet by mouth two times a day for 5 days. Encounter Status:Closed by Joanie STAHL on 05/24/24 Normal [facility] Basic Metabolic Profile (BMP )on 05-22-2024 BUN Normal 7-[address] [facility] Comment on above: Result Comment: Canc elled via OM: Order cancelled - Patient discharged Performed By: #### L 500.2500, L100.0100 ####[facility] [address] [place], [address] BUN/CRE Normal 10-[address] [facility] Comment on above: Result Comment: Canc elled via OM: Order cancelled - Patient discharged Performed By: #### L 500.2500, L100.0100 ####[facility] [address] [place], [address] CA,Total Normal 8.5-10.[address] [facility] Comment on above: Result Comment: Canc elled via OM: Order cancelled - Patient discharged Performed By: #### L 500.2500, L100.0100 ####[facility] [address] [place], [address] CL Normal 98-[address] [facility] Comment on above: Result Comment: Canc elled via OM: Order cancelled - Patient discharged Performed By: #### L 500.2500, L100.0100 ####[facility] [address] [place], [address] CO2 Normal 21.0-32.[address] [facility] Comment on above: Result Comment: Canc elled via OM: Order cancelled - Patient discharged Performed By: #### L 500.2500, L100.0100 ####[facility] [address] [place], [address] CREAT,SERUM Normal 0.55-1.[address] [facility] Comment on above: Result Comment: Canc elled via OM: Order cancelled - Patient discharged Performed By: #### L 500.2500, L100.0100 ####[facility] [address] [place], [address] EST GFR Normal >[address] [facility] Comment on above: Result Comment: Canc elled via OM: Order cancelled - Patient discharged Performed By: #### L 500.2500, L100.0100 ####[facility] [address] [place], [address] EST GFR - AA Normal >[address] [facility] Comment on above: Result Comment: Canc elled via OM: Order cancelled - Patient discharged Performed By: #### L 500.2500, L100.0100 ####[facility] [address] [place], [address] GAP Normal 5-[address] [facility] Comment on above: Result Comment: Canc elled via OM: Order cancelled - Patient discharged Performed By: #### L 500.2500, L100.0100 ####[facility] [address] [place], [address] GLU Normal 74-[address] [facility] Comment on above: Result Comment: Canc elled via OM: Order cancelled - Patient discharged Performed By: #### L 500.2500, L100.0100 ####[facility] [address] [place], [address] Potassium Normal 3.5-5.[address] [facility] Comment on above: Result Comment: Canc elled via OM: Order cancelled - Patient discharged Performed By: #### L 500.2500, L100.0100 ####[facility] [address] [place], [address] Basic Metabolic Profile (BMP) Normal 136-[address] [facility] Comment on above: Result Comment: Canc elled via OM: Order cancelled - Patient discharged Performed By: #### L 500.2500, L100.0100 ####[facility] [address] [place], [address] CBC W/Diff, Automatedon 08-2 Absolute Neut Normal 2.0-7.[address] [facility] Comment on above: Result Comment: Canc elled via OM: Order cancelled - Patient discharged Performed By: #### L 500.2500, L100.0100 ####[facility] [address] [place], [address] HCT Normal 37-[address] [facility] Comment on above: Result Comment: Canc elled via OM: Order cancelled - Patient discharged Performed By: #### L 500.2500, L100.0100 ####[facility] [address] [place], [address] HGB Normal 12.0-15.[address] [facility] Comment on above: Result Comment: Canc elled via OM: Order cancelled - Patient discharged Performed By: #### L 500.2500, L100.0100 ####[facility] [address] [place], [address] MCH Normal 27.0-32.[address] [facility] Comment on above: Result Comment: Canc elled via OM: Order cancelled - Patient discharged Performed By: #### L 500.2500, L100.0100 ####[facility] [address] [place], [address] MCHC Normal 32-[address] [facility] Comment on above: Result Comment: Canc elled via OM: Order cancelled - Patient discharged Performed By: #### L 500.2500, L100.0100 ####[facility] [address] [place], [address] MCV Normal 81-[address] [facility] Comment on above: Result Comment: Canc elled via OM: Order cancelled - Patient discharged Performed By: #### L 500.2500, L100.0100 ####[facility] [address] [place], [address] NEUT% Normal 47-[address] [facility] Comment on above: Result Comment: Canc elled via OM: Order cancelled - Patient discharged Performed By: #### L 500.2500, L100.0100 ####[facility] [address] [place], [address] PLT Normal 150-[address] [facility] Comment on above: Result Comment: Canc elled via OM: Order cancelled - Patient discharged Performed By: #### L 500.2500, L100.0100 ####[facility] [address] [place], [address] RBC Normal 4.2-5.[address] [facility] Comment on above: Result Comment: Canc elled via OM: Order cancelled - Patient discharged Performed By: #### L 500.2500, L100.0100 ####[facility] [address] [place], [address] RDW CV Normal 11.6-14.[address] [facility] Comment on above: Result Comment: Canc elled via OM: Order cancelled - Patient discharged Performed By: #### L 500.2500, L100.0100 ####[facility] [address] [place], [address] RDW SD Normal 35.1-43.[address] [facility] Comment on above: Result Comment: Canc elled via OM: Order cancelled - Patient discharged Performed By: #### L 500.2500, L100.0100 ####[facility] [address] [place], [address] WBC Normal 4.4-11.[address] [facility] Comment on above: Result Comment: Canc elled via OM: Order cancelled - Patient discharged Performed By: #### L 500.2500, L100.0100 ####[facility] [address] [place], [address] CNPNon 05-22-2024 [facility] CAROLINA HIGHTOWER ([id number]) 1975 F Date Time Provider Department 05/22/24 [facility] During your visit today, we recorded the following information about you: Joanie Stahl RN 05/22/2024 1:27 PM Signed [facility] reports patient lost her meds again- gabapentin, ferrous sulfate, and vitamin C. Asking for verbal from pcp to give patient refills a week early. 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 Dacia Acosta MD 05/22/2024 1:36 PM Signed OK to fill a week early as requested MD Gavin Acevedo Jacqueline, LPN 05/22/2024 3:12 PM Signed [facility] notified. Allergies As of Date: 05/22/2024 Noted Allergy Reaction ASPIRIN 06/02/2005 Comments: UNCERTAIN =CHILDHOOD BUPROPION 06/11/2019 14 - Other: See Comments CODEINE 06/02/2005 2 - Rash PREDNISONE 06/19/2019 2 - Rash WELLBUTRIN (BUPROPION HCL) 09/29/2012 14 - Other: See Comments Comments: seizures Date Reviewed: 05/11/2024 Reviewed by: Dev Thacker, RT(R) - Fully Assessed Reason for Visit: Lost medications [Other] Prescriptions as of 05/22/2024 - ibuprofen (MOTRIN) 600 mg tablet Take 1 tablet by mouth every 6 hours as needed for pain. - gabapentin (NEURONTIN) 100 mg capsule Take 1 capsule by mouth two times a day for 180 days. - spironolactone (ALDACTONE) 50 mg tablet Take 1 tablet by mouth two times a day. - furosemide (LASIX) 40 mg tablet Take 1 tablet by mouth once daily. - fluticasone (FLONASE) 50 mcg/actuation nasal spray Use 2 Sprays in each nostril once daily. Rinse mouth after use. - mupirocin (BACTROBAN) 2 % ointment Apply [...] 1 Patch as directed as directed. - ondansetron orally disintegrating (ZOFRAN ODT) 4 mg disintegrating tablet Take 1 tablet by mouth every 6 hours as needed for nausea/vomiting. - albuterol HFA (PROAIR HFA) 90 mcg/actuation inhaler Inhale 2 Puffs as instructed every 4 hours as needed. - pantoprazole DR (PROTONIX) 40 mg tablet Take 1 tablet by mouth twice daily before meals. Take on empty stomach, 1/2 hr before meal. 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 Comment on above: Performed By: #### L 500.2500, L100.0100 ####[facility] [address] [place], [address] CA,Total 9.0 mg/dL Normal 8.5-10.[address] [facility] Comment on above: Performed By: #### L 500.2500, L100.0100 ####[facility] [address] [place], [address] Chloride [Moles/Vol] 109 mmol/L High 98-107 [facility] Comment on above: Performed By: #### L 500.2500, L100.0100 ####[facility] [address] [place], [address] CO2 [Moles/Vol] 25.0 mmol/L Normal 21.0-32.[address] [facility] Comment on above: Performed By: #### L 500.2500, L100.0100 ####[facility] [address] [place], [address] Creatinine [Mass/Vol] 0.84 mg/dL Normal 0.55-1.02 [facility] Comment on above: Result Comment: The validity of the calculated GFR GFRAA in patients over70 years has not been determined. Clinical correlation isessential. Performed By: #### L 500.2500, L100.0100 ####[facility] [address] [place], [address] ECRCL 75.56 ml/min Normal [facility] Comment on above: Performed By: #### L 500.2500, L100.0100 ####[facility] [address] [place], [address] EST GFR - AA 92 mL/min Normal >[address] [facility] Comment on above: Result Comment: Afri can [place] GFR Calc Performed By: #### L 500.2500, L100.0100 ####[facility] [address] [place], [address] GAP 4 Low 5-[address] [facility] Comment on above: Performed By: #### L 500.2500, L100.0100 ####[facility] [address] [place], [address] GFR/1.73 sq M.predicted among non-blacks MDRD (S/P/Bld) [Vol rate/Area] 76 mL/min/{1.73_m2} Normal >[address] [facility] Comment on above: Result Comment: Non- GFR Calc Performed By: #### L 500.2500, L100.0100 ####[facility] [address] [place], [address] Glucose [Mass/Vol] 133 mg/dL High 74-106 [facility] Comment on above: Result Comment: Fast ing Glucose result greater than or equal to 126 mg/dLsuggests DIABETES MELLITUS per A.D.A. criteria. Performed By: #### L 500.2500, L100.0100 ####[facility] [address] [place], [address] Potassium [Moles/Vol] 3.5 mmol/L Normal 3.5-5.1 [facility] Comment on above: Performed By: #### L 500.2500, L100.0100 ####[facility] [address] [place], [address] Sodium [Moles/Vol] 138 mmol/L Normal 136-145 [facility] Comment on above: Performed By: #### L 500.2500, L100.0100 ####[facility] [address] [place], [address] Urea nitrogen [Mass/Vol] 10 mg/dL Normal 7-[address] [facility] Comment on above: Performed By: #### L 500.2500, L100.0100 ####[facility] [address] [place], [address] CBC W/Diff, Automatedon 08-2 -2023 Absolute Lymph 1.95 X10 3/uL Normal 0.83-4.[address] [facility] Comment on above: Performed By: #### L 500.2500, L100.0100 ####[facility] [address] [place], [address] Absolute Neut 6.4 X10 3/uL Normal 2.0-7.[address] [facility] Comment on above: Performed By: #### L 500.2500, L100.0100 ####[facility] [address] [place], [address] Basophils/100 WBC (Bld) 0.8 % Normal 0-[address] [facility] Comment on above: Performed By: #### L 500.2500, L100.0100 ####[facility] [address] [place], [address] Eosinophils/100 WBC (Bld) 3.2 % Normal 0-[address] [facility] Comment on above: Performed By: #### L 500.2500, L100.0100 ####[facility] [address] [place], [address] Erythrocyte distribution width (RBC) [Ratio] 18.3 % High 11.6-14.[address] [facility] Comment on above: Performed By: #### L 500.2500, L100.0100 ####[facility] [address] [place], [address] Hematocrit (Bld) [Volume fraction] 36.4 % Low 37-[address] [facility] Comment on above: Performed By: #### L 500.2500, L100.0100 ####[facility] [address] [place], [address] Hemoglobin (Bld) [Mass/Vol] 12.4 g/dL Normal 12.0-15.[address] [facility] Comment on above: Performed By: #### L 500.2500, L100.0100 ####[facility] [address] [place], [address] IG% 0.300 Normal 0.0-0.[address] [facility] Comment on above: Result Comment: IG% - Immature Granulocytes (promyelocytes, myelocytes andmetamyelocytes) > 1% indicates that a LEFT SHIFT is Present. Performed By: #### L 500.2500, L100.0100 ####[facility] [address] [place], [address] Lymphocytes/100 WBC (Bld) 20.3 % Normal 19-[address] [facility] Comment on above: Performed By: #### L 500.2500, L100.0100 ####[facility] [address] [place], [address] MCH (RBC) [Entitic mass] 30.7 pg Normal 27.0-32.[address] [facility] Comment on above: Performed By: #### L 500.2500, L100.0100 ####[facility] [address] [place], [address] MCHC (RBC) [Mass/Vol] 34.1 g/dL Normal 32-36 [facility] Comment on above: Performed By: #### L 500.2500, L100.0100 ####[facility] [address] [place], [address] MCV (RBC) [Entitic vol] 90.1 fL Normal 81-[address] [facility] Comment on above: Performed By: #### L 500.2500, L100.0100 ####[facility] [address] [place], [address] Monocytes/100 WBC (Bld) 8.2 % Normal 0-[address] [facility] Comment on above: Performed By: #### L 500.2500, L100.0100 ####[facility] [address] [place], [address] Neutrophils/100 WBC (Bld) 67.2 % Normal 47-[address] [facility] Comment on above: Performed By: #### L 500.2500, L100.0100 ####[facility] [address] [place], [address] Nucleated RBC (Bld) [#/Vol] 0 10*3/uL Normal 0-[address] [facility] Comment on above: Performed By: #### L 500.2500, L100.0100 ####[facility] [address] [place], [address] Platelet mean volume (Bld) [Entitic vol] 11.2 fL Normal 6.2-12.[address] [facility] Comment on above: Performed By: #### L 500.2500, L100.0100 ####[facility] [address] [place], [address] Platelets (Bld) [#/Vol] 75 10*3/uL Low 150-[address] [facility] Comment on above: Performed By: #### L 500.2500, L100.0100 ####[facility] [address] [place], [address] RBC (Bld) [#/Vol] 4.04 10*6/uL Low 4.2-5.4 [facility] Comment on above: Performed By: #### L 500.2500, L100.0100 ####[facility] [address] [place], [id number] RDW SD 59.4 fl High 35.1-43.[address] [facility] Comment on above: Performed By: #### L 500.2500, L100.0100 ####[facility] [address] [place], [address] WBC (Bld) [#/Vol] 9.6 10*3/uL Normal 4.4-11.0 [facility] Comment on above: Performed By: #### L 500.2500, L100.0100 ####[facility] [address] [place], [address] Absolute Neut Normal 2.0-7.[address] [facility] Comment on above: Result Comment: Canc elled via OM: Order cancelled - Patient discharged Performed By: #### L 100.0100, L500.4050 ####[facility] [address] [place], [id number] HCT Normal 37-[address] [facility] Comment on above: Result Comment: Canc elled via OM: Order cancelled - Patient discharged Performed By: #### L 100.0100, L500.4050 ####[facility] [address] [place], [address] HGB Normal 12.0-15.[address] [facility] Comment on above: Result Comment: Canc elled via OM: Order cancelled - Patient discharged Performed By: #### L 100.0100, L500.4050 ####[facility] [address] [place], [address] MCH Normal 27.0-32.[address] [facility] Comment on above: Result Comment: Canc elled via OM: Order cancelled - Patient discharged Performed By: #### L 100.0100, L500.4050 ####[facility] [address] [place], [address] MCHC Normal 32-[address] [facility] Comment on above: Result Comment: Canc elled via OM: Order cancelled - Patient discharged Performed By: #### L 100.0100, L500.4050 ####[facility] [address] [place], [address] MCV Normal 81-[address] [facility] Comment on above: Result Comment: Canc elled via OM: Order cancelled - Patient discharged Performed By: #### L 100.0100, L500.4050 ####[facility] [address] [place], [address] NEUT% Normal 47-[address] [facility] Comment on above: Result Comment: Canc elled via OM: Order cancelled - Patient discharged Performed By: #### L 100.0100, L500.4050 ####[facility] [address] [place], [address] PLT Normal 150-[address] [facility] Comment on above: Result Comment: Canc elled via OM: Order cancelled - Patient discharged Performed By: #### L 100.0100, L500.4050 ####[facility] [address] [place], [address] RBC Normal 4.2-5.[address] [facility] Comment on above: Result Comment: Canc elled via OM: Order cancelled - Patient discharged Performed By: #### L 100.0100, L500.4050 ####[facility] [address] [place], [address] RDW CV Normal 11.6-14.[address] [facility] Comment on above: Result Comment: Canc elled via OM: Order cancelled - Patient discharged Performed By: #### L 100.0100, L500.4050 ####[facility] [address] [place], [address] RDW SD Normal 35.1-43.[address] [facility] Comment on above: Result Comment: Canc elled via OM: Order cancelled - Patient discharged Performed By: #### L 100.0100, L500.4050 ####[facility] [address] [place], [address] WBC Normal 4.4-11.[address] [facility] Comment on above: Result Comment: Canc elled via OM: Order cancelled - Patient discharged Performed By: #### L 100.0100, L500.4050 ####[facility] [address] [place], [address] Comprehensive Metabolic Prof ilon 05-21-2024 ALB Normal 3.2-5.[address] [facility] Comment on above: Result Comment: Canc elled via OM: Order cancelled - Patient discharged Performed By: #### L 100.0100, L500.4050 ####[facility] [address] [place], [address] ALK P Normal 45-[address] [facility] Comment on above: Result Comment: Canc elled via OM: Order cancelled - Patient discharged Performed By: #### L 100.0100, L500.4050 ####[facility] [address] [place], [address] ALT Normal 13-[address] [facility] Comment on above: Result Comment: Canc elled via OM: Order cancelled - Patient discharged Performed By: #### L 100.0100, L500.4050 ####[facility] [address] [place], [address] AST Normal 15-[address] [facility] Comment on above: Result Comment: Canc elled via OM: Order cancelled - Patient discharged Performed By: #### L 100.0100, L500.4050 ####[facility] [address] [place], [address] BUN Normal 7-[address] [facility] Comment on above: Result Comment: Canc elled via OM: Order cancelled - Patient discharged Performed By: #### L 100.0100, L500.4050 ####[facility] [address] [place], [address] BUN/CRE Normal 10-[address] [facility] Comment on above: Result Comment: Canc elled via OM: Order cancelled - Patient discharged Performed By: #### L 100.0100, L500.4050 ####[facility] [address] [place], [address] CA,Total Normal 8.5-10.[address] [facility] Comment on above: Result Comment: Canc elled via OM: Order cancelled - Patient discharged Performed By: #### L 100.0100, L500.4050 ####[facility] [address] [place], [address] CL Normal 98-[address] [facility] Comment on above: Result Comment: Canc elled via OM: Order cancelled - Patient discharged Performed By: #### L 100.0100, L500.4050 ####[facility] [address] [place], [address] CO2 Normal 21.0-32.[address] [facility] Comment on above: Result Comment: Canc elled via OM: Order cancelled - Patient discharged Performed By: #### L 100.0100, L500.4050 ####[facility] [address] [place], [address] CREAT,SERUM Normal 0.55-1.[address] [facility] Comment on above: Result Comment: Canc elled via OM: Order cancelled - Patient discharged Performed By: #### L 100.0100, L500.4050 ####[facility] [address] [place], [address] EST GFR Normal >[address] [facility] Comment on above: Result Comment: Canc elled via OM: Order cancelled - Patient discharged Performed By: #### L 100.0100, L500.4050 ####[facility] [address] [place], [address] EST GFR - AA Normal >[address] [facility] Comment on above: Result Comment: Canc elled via OM: Order cancelled - Patient discharged Performed By: #### L 100.0100, L500.4050 ####[facility] [address] [place], [address] GAP Normal 5-[address] [facility] Comment on above: Result Comment: Canc elled via OM: Order cancelled - Patient discharged Performed By: #### L 100.0100, L500.4050 ####[facility] [address] [place], [address] GLU Normal 74-[address] [facility] Comment on above: Result Comment: Canc elled via OM: Order cancelled - Patient discharged Performed By: #### L 100.0100, L500.4050 ####[facility] [address] [place], [address] Potassium Normal 3.5-5.[address] [facility] Comment on above: Result Comment: Canc elled via OM: Order cancelled - Patient discharged Performed By: #### L 100.0100, L500.4050 ####[facility] [address] [place], [address] T BILI Normal 0.20-1.[address] [facility] Comment on above: Result Comment: Canc elled via OM: Order cancelled - Patient discharged Performed By: #### L 100.0100, L500.4050 ####[facility] [address] [place], [address] T PROT Normal 6.4-8.[address] [facility] Comment on above: Result Comment: Canc elled via OM: Order cancelled - Patient discharged Performed By: #### L 100.0100, L500.4050 ####[facility] [address] [place], [address] Comprehensive Metabolic Profil Normal 136-[address] [facility] Comment on above: Result Comment: Canc elled via OM: Order cancelled - Patient discharged Performed By: #### L 100.0100, L500.4050 ####[facility] [address] [place], [address] Discharge Instructionon 04-27 Discharge Instruction Normal [facility] Basic Metabolic Profile (BMP )on 05-20-2024 BUN/CRE 16.3 RATIO Normal 10-[address] [facility] Comment on above: Performed By: #### L 500.2500, L100.0100 ####[facility] [address] [place], [address] CA,Total 8.7 mg/dL Normal 8.5-10.[address] [facility] Comment on above: Performed By: #### L 500.2500, L100.0100 ####[facility] [address] [place], [address] Chloride [Moles/Vol] 109 mmol/L High 98-107 [facility] Comment on above: Performed By: #### L 500.2500, L100.0100 ####[facility] [address] [place], [address] CO2 [Moles/Vol] 24.0 mmol/L Normal 21.0-32.[address] [facility] Comment on above: Performed By: #### L 500.2500, L100.0100 ####[facility] [address] [place], [address] Creatinine [Mass/Vol] 0.74 mg/dL Normal 0.55-1.02 [facility] Comment on above: Result Comment: The validity of the calculated GFR GFRAA in patients over70 years has not been determined. Clinical correlation isessential. Performed By: #### L 500.2500, L100.0100 ####[facility] [address] [place], [address] ECRCL 85.78 ml/min Normal [facility] Comment on above: Performed By: #### L 500.2500, L100.0100 ####[facility] [address] [place], [address] EST GFR - AA 107 mL/min Normal >[address] [facility] Comment on above: Result Comment: Afri can [place] GFR Calc Performed By: #### L 500.2500, L100.0100 ####[facility] [address] [place], [address] GAP 5 Normal 5-[address] [facility] Comment on above: Performed By: #### L 500.2500, L100.0100 ####[facility] [address] [place], [address] GFR/1.73 sq M.predicted among non-blacks MDRD (S/P/Bld) [Vol rate/Area] 89 mL/min/{1.73_m2} Normal >[address] [facility] Comment on above: Result Comment: Non- GFR Calc Performed By: #### L 500.2500, L100.0100 ####[facility] [address] [place], [address] Glucose [Mass/Vol] 114 mg/dL High 74-106 [facility] Comment on above: Result Comment: Fast ing Glucose result from 100 to 125 mg/dLsuggests IMPAIRED HOMEOSTASIS per A.D.A. criteria. Performed By: #### L 500.2500, L100.0100 ####[facility] [address] [place], [address] Potassium [Moles/Vol] 3.5 mmol/L Normal 3.5-5.1 [facility] Comment on above: Performed By: #### L 500.2500, L100.0100 ####[facility] [address] [place], [address] Sodium [Moles/Vol] 138 mmol/L Normal 136-145 [facility] Comment on above: Performed By: #### L 500.2500, L100.0100 ####[facility] [address] [place], [address] Urea nitrogen [Mass/Vol] 12 mg/dL Normal 7-[address] [facility] Comment on above: Performed By: #### L 500.2500, L100.0100 ####[facility] [address] [place], [address] CBC W/Diff, Automatedon 08-2 PLT EST MOD DEC Normal ADEQ [facility] Comment on above: Performed By: #### L 500.2500, L100.0100 ####[facility] [address] [place], [address] SMEAR COMMENT SCANNED Normal [facility] Comment on above: Performed By: #### L 500.2500, L100.0100 ####[facility] [address] [place], [address] Absolute Neut Normal 2.0-7.[address] [facility] Comment on above: Result Comment: Canc elled via OM: Order cancelled - Patient discharged Performed By: #### L 100.0100, L500.4050 ####[facility] [address] [place], [address] HCT Normal 37-[address] [facility] Comment on above: Result Comment: Canc elled via OM: Order cancelled - Patient discharged Performed By: #### L 100.0100, L500.4050 ####[facility] [address] [place], [address] HGB Normal 12.0-15.[address] [facility] Comment on above: Result Comment: Canc elled via OM: Order cancelled - Patient discharged Performed By: #### L 100.0100, L500.4050 ####[facility] [address] [place], [address] MCH Normal 27.0-32.[address] [facility] Comment on above: Result Comment: Canc elled via OM: Order cancelled - Patient discharged Performed By: #### L 100.0100, L500.4050 ####[facility] [address] [place], [address] MCHC Normal 32-[address] [facility] Comment on above: Result Comment: Canc elled via OM: Order cancelled - Patient discharged Performed By: #### L 100.0100, L500.4050 ####[facility] [address] [place], [address] MCV Normal 81-[address] [facility] Comment on above: Result Comment: Canc elled via OM: Order cancelled - Patient discharged Performed By: #### L 100.0100, L500.4050 ####[facility] [address] [place], [address] NEUT% Normal 47-[address] [facility] Comment on above: Result Comment: Canc elled via OM: Order cancelled - Patient discharged Performed By: #### L 100.0100, L500.4050 ####[facility] [address] [place], [address] PLT Normal 150-[address] [facility] Comment on above: Result Comment: Canc elled via OM: Order cancelled - Patient discharged Performed By: #### L 100.0100, L500.4050 ####[facility] [address] [place], [address] RBC Normal 4.2-5.[address] [facility] Comment on above: Result Comment: Canc elled via OM: Order cancelled - Patient discharged Performed By: #### L 100.0100, L500.4050 ####[facility] [address] [place], [address] RDW CV Normal 11.6-14.[address] [facility] Comment on above: Result Comment: Canc elled via OM: Order cancelled - Patient discharged Performed By: #### L 100.0100, L500.4050 ####[facility] [address] [place], [address] RDW SD Normal 35.1-43.[address] [facility] Comment on above: Result Comment: Canc elled via OM: Order cancelled - Patient discharged Performed By: #### L 100.0100, L500.4050 ####[facility] [address] [place], [address] WBC Normal 4.4-11.[address] [facility] Comment on above: Result Comment: Canc elled via OM: Order cancelled - Patient discharged Performed By: #### L 100.0100, L500.4050 ####[facility] [address] [place], [address] Comprehensive Metabolic Prof iltyler 05-20-2024 ALB Normal 3.2-5.[address] [facility] Comment on above: Result Comment: Canc elled via OM: Order cancelled - Patient discharged Performed By: #### L 100.0100, L500.4050 ####[facility] [address] [place], [address] ALK P Normal 45-[address] [facility] Comment on above: Result Comment: Canc elled via OM: Order cancelled - Patient discharged Performed By: #### L 100.0100, L500.4050 ####[facility] [address] [place], [address] ALT Normal 13-[address] [facility] Comment on above: Result Comment: Canc elled via OM: Order cancelled - Patient discharged Performed By: #### L 100.0100, L500.4050 ####[facility] [address] [place], [address] AST Normal 15-[address] [facility] Comment on above: Result Comment: Canc elled via OM: Order cancelled - Patient discharged Performed By: #### L 100.0100, L500.4050 ####[facility] [address] [place], [address] BUN Normal 7-[address] [facility] Comment on above: Result Comment: Canc elled via OM: Order cancelled - Patient discharged Performed By: #### L 100.0100, L500.4050 ####[facility] [address] [place], [address] BUN/CRE Normal 10-[address] [facility] Comment on above: Result Comment: Canc elled via OM: Order cancelled - Patient discharged Performed By: #### L 100.0100, L500.4050 ####[facility] [address] [place], [address] CA,Total Normal 8.5-10.[address] [facility] Comment on above: Result Comment: Canc elled via OM: Order cancelled - Patient discharged Performed By: #### L 100.0100, L500.4050 ####[facility] [address] [place], [address] CL Normal 98-[address] [facility] Comment on above: Result Comment: Canc elled via OM: Order cancelled - Patient discharged Performed By: #### L 100.0100, L500.4050 ####[facility] [address] [place], [address] CO2 Normal 21.0-32.[address] [facility] Comment on above: Result Comment: Canc elled via OM: Order cancelled - Patient discharged Performed By: #### L 100.0100, L500.4050 ####[facility] [address] [place], [address] CREAT,SERUM Normal 0.55-1.[address] [facility] Comment on above: Result Comment: Canc elled via OM: Order cancelled - Patient discharged Performed By: #### L 100.0100, L500.4050 ####[facility] [address] [place], [address] EST GFR Normal >[address] [facility] Comment on above: Result Comment: Canc elled via OM: Order cancelled - Patient discharged Performed By: #### L 100.0100, L500.4050 ####[facility] [address] [place], [address] EST GFR - AA Normal >[address] [facility] Comment on above: Result Comment: Canc elled via OM: Order cancelled - Patient discharged Performed By: #### L 100.0100, L500.4050 ####[facility] [address] [place], [address] GAP Normal 5-[address] [facility] Comment on above: Result Comment: Canc elled via OM: Order cancelled - Patient discharged Performed By: #### L 100.0100, L500.4050 ####[facility] [address] [place], [address] GLU Normal 74-[address] [facility] Comment on above: Result Comment: Canc elled via OM: Order cancelled - Patient discharged Performed By: #### L 100.0100, L500.4050 ####[facility] [address] [place], [address] Potassium Normal 3.5-5.[address] [facility] Comment on above: Result Comment: Canc elled via OM: Order cancelled - Patient discharged Performed By: #### L 100.0100, L500.4050 ####[facility] [address] [place], [address] T BILI Normal 0.20-1.[address] [facility] Comment on above: Result Comment: Canc elled via OM: Order cancelled - Patient discharged Performed By: #### L 100.0100, L500.4050 ####[facility] [address] [place], [address] T PROT Normal 6.4-8.[address] [facility] Comment on above: Result Comment: Canc elled via OM: Order cancelled - Patient discharged Performed By: #### L 100.0100, L500.4050 ####[facility] [address] [place], [address] Comprehensive Metabolic Profil Normal 136-[address] [facility] Comment on above: Result Comment: Canc elled via OM: Order cancelled - Patient discharged Performed By: #### L 100.0100, L500.4050 ####[facility] [address] [place], [address] Urine Cultureon 05-20-[address] [facility] Comment on above: Performed By: #### M 100.2200 ####[facility] [address] [place], [address] Basic Metabolic Profile (BMP )on 05-19-2024 BUN/CRE 13.2 RATIO Normal 10-[address] [facility] Comment on above: Performed By: #### L 100.0100, L500.2500 ####[facility] [address] [place], [address] CA,Total 8.8 mg/dL Normal 8.5-10.[address] [facility] Comment on above: Performed By: #### L 100.0100, L500.2500 ####[facility] [address] [place], [address] Chloride [Moles/Vol] 109 mmol/L High 98-107 [facility] Comment on above: Performed By: #### L 100.0100, L500.2500 ####[facility] [address] [place], [address] CO2 [Moles/Vol] 24.0 mmol/L Normal 21.0-32.[address] [facility] Comment on above: Performed By: #### L 100.0100, L500.2500 ####[facility] [address] [place], [address] Creatinine [Mass/Vol] 0.76 mg/dL Normal 0.55-1.02 [facility] Comment on above: Result Comment: The validity of the calculated GFR GFRAA in patients over70 years has not been determined. Clinical correlation isessential. Performed By: #### L 100.0100, L500.2500 ####[facility] [address] [place], [address] ECRCL 83.52 ml/min Normal [facility] Comment on above: Performed By: #### L 100.0100, L500.2500 ####[facility] [address] [place], [address] EST GFR - AA 104 mL/min Normal >[address] [facility] Comment on above: Result Comment: Afri can [place] GFR Calc Performed By: #### L 100.0100, L500.2500 ####[facility] [address] [place], [address] GAP 5 Normal 5-[address] [facility] Comment on above: Performed By: #### L 100.0100, L500.2500 ####[facility] [address] [place], [address] GFR/1.73 sq M.predicted among non-blacks MDRD (S/P/Bld) [Vol rate/Area] 86 mL/min/{1.73_m2} Normal >[address] [facility] Comment on above: Result Comment: Non- GFR Calc Performed By: #### L 100.0100, L500.2500 ####[facility] [address] [place], [address] Glucose [Mass/Vol] 115 mg/dL High 74-106 [facility] Comment on above: Result Comment: Fast ing Glucose result from 100 to 125 mg/dLsuggests IMPAIRED HOMEOSTASIS per A.D.A. criteria. Performed By: #### L 100.0100, L500.2500 ####[facility] [address] [place], [address] Potassium [Moles/Vol] 3.7 mmol/L Normal 3.5-5.1 [facility] Comment on above: Performed By: #### L 100.0100, L500.2500 ####[facility] [address] [place], [address] Sodium [Moles/Vol] 138 mmol/L Normal 136-145 [facility] Comment on above: Performed By: #### L 100.0100, L500.2500 ####[facility] [address] [place], [address] Urea nitrogen [Mass/Vol] 10 mg/dL Normal 7-[address] [facility] Comment on above: Performed By: #### L 100.0100, L500.2500 ####[facility] [address] [place], [address] CBC W/Diff, Automatedon 04-27 Absolute Lymph 1.60 X10 3/uL Normal 0.83-4.[address] [facility] Comment on above: Performed By: #### L 100.0100, L500.2500 ####[facility] [address] [place], [address] Absolute Neut 5.6 X10 3/uL Normal 2.0-7.[address] [facility] Comment on above: Performed By: #### L 100.0100, L500.2500 ####[facility] [address] [place], [address] Basophils/100 WBC (Bld) 0.7 % Normal 0-[address] [facility] Comment on above: Performed By: #### L 100.0100, L500.2500 ####[facility] [address] [place], [address] Eosinophils/100 WBC (Bld) 3.4 % Normal 0-[address] [facility] Comment on above: Performed By: #### L 100.0100, L500.2500 ####[facility] [address] [place], [address] Erythrocyte distribution width (RBC) [Ratio] 18.6 % High 11.6-14.[address] [facility] Comment on above: Performed By: #### L 100.0100, L500.2500 ####[facility] [address] [place], [address] Hematocrit (Bld) [Volume fraction] 33.1 % Low 37-[address] [facility] Comment on above: Performed By: #### L 100.0100, L500.2500 ####[facility] [address] [place], [address] Hemoglobin (Bld) [Mass/Vol] 11.2 g/dL Low 12.0-15.[address] [facility] Comment on above: Performed By: #### L 100.0100, L500.2500 ####[facility] [address] [place], [address] IG% 0.500 Normal 0.0-0.[address] [facility] Comment on above: Result Comment: IG% - Immature Granulocytes (promyelocytes, myelocytes andmetamyelocytes) > 1% indicates that a LEFT SHIFT is Present. Performed By: #### L 100.0100, L500.2500 ####[facility] [address] [place], [address] Lymphocytes/100 WBC (Bld) 19.6 % Normal 19-[address] [facility] Comment on above: Performed By: #### L 100.0100, L500.2500 ####[facility] [address] [place], [address] MCH (RBC) [Entitic mass] 30.8 pg Normal 27.0-32.[address] [facility] Comment on above: Performed By: #### L 100.0100, L500.2500 ####[facility] [address] [place], [address] MCHC (RBC) [Mass/Vol] 33.8 g/dL Normal 32-36 [facility] Comment on above: Performed By: #### L 100.0100, L500.2500 ####[facility] [address] [place], [address] MCV (RBC) [Entitic vol] 90.9 fL Normal 81-[address] [facility] Comment on above: Performed By: #### L 100.0100, L500.2500 ####[facility] [address] [place], [address] Monocytes/100 WBC (Bld) 7.6 % Normal 0-[address] [facility] Comment on above: Performed By: #### L 100.0100, L500.2500 ####[facility] [address] [place], [address] Neutrophils/100 WBC (Bld) 68.2 % Normal 47-[address] [facility] Comment on above: Performed By: #### L 100.0100, L500.2500 ####[facility] [address] [place], [address] Nucleated RBC (Bld) [#/Vol] 0 10*3/uL Normal 0-[address] [facility] Comment on above: Performed By: #### L 100.0100, L500.2500 ####[facility] [address] [place], [address] Platelet mean volume (Bld) [Entitic vol] 11.6 fL Normal 6.2-12.[address] [facility] Comment on above: Performed By: #### L 100.0100, L500.2500 ####[facility] [address] [place], [address] Platelets (Bld) [#/Vol] 68 10*3/uL Low 150-[address] [facility] Comment on above: Performed By: #### L 100.0100, L500.2500 ####[facility] [address] [place], [address] RBC (Bld) [#/Vol] 3.64 10*6/uL Low 4.2-5.4 [facility] Comment on above: Performed By: #### L 100.0100, L500.2500 ####[facility] [address] [place], [address] RDW SD 61.1 fl High 35.1-43.[address] [facility] Comment on above: Performed By: #### L 100.0100, L500.2500 ####[facility] [address] [place], [address] WBC (Bld) [#/Vol] 8.2 10*3/uL Normal 4.4-11.0 [facility] Comment on above: Performed By: #### L 100.0100, L500.2500 ####[facility] [address] [place], [address] Absolute Neut Normal 2.0-7.[address] [facility] Comment on above: Result Comment: Canc elled via OM: Order cancelled - Patient discharged Performed By: #### L 500.4050, L100.0100 ####[facility] [address] [place], [address] HCT Normal 37-[address] [facility] Comment on above: Result Comment: Canc elled via OM: Order cancelled - Patient discharged Performed By: #### L 500.4050, L100.0100 ####[facility] [address] [place], [address] HGB Normal 12.0-15.[address] [facility] Comment on above: Result Comment: Canc elled via OM: Order cancelled - Patient discharged Performed By: #### L 500.4050, L100.0100 ####[facility] [address] [place], [address] MCH Normal 27.0-32.[address] [facility] Comment on above: Result Comment: Canc elled via OM: Order cancelled - Patient discharged Performed By: #### L 500.4050, L100.0100 ####[facility] [address] [place], [address] MCHC Normal 32-[address] [facility] Comment on above: Result Comment: Canc elled via OM: Order cancelled - Patient discharged Performed By: #### L 500.4050, L100.0100 ####[facility] [address] [place], [address] MCV Normal 81-[address] [facility] Comment on above: Result Comment: Canc elled via OM: Order cancelled - Patient discharged Performed By: #### L 500.4050, L100.0100 ####[facility] [address] [place], [address] NEUT% Normal 47-[address] [facility] Comment on above: Result Comment: Canc elled via OM: Order cancelled - Patient discharged Performed By: #### L 500.4050, L100.0100 ####[facility] [address] [place], [address] PLT Normal 150-[address] [facility] Comment on above: Result Comment: Canc elled via OM: Order cancelled - Patient discharged Performed By: #### L 500.4050, L100.0100 ####[facility] [address] [place], [address] RBC Normal 4.2-5.[address] [facility] Comment on above: Result Comment: Canc elled via OM: Order cancelled - Patient discharged Performed By: #### L 500.4050, L100.0100 ####[facility] [address] [place], [address] RDW CV Normal 11.6-14.[address] [facility] Comment on above: Result Comment: Canc elled via OM: Order cancelled - Patient discharged Performed By: #### L 500.4050, L100.0100 ####[facility] [address] [place], [address] RDW SD Normal 35.1-43.[address] [facility] Comment on above: Result Comment: Canc elled via OM: Order cancelled - Patient discharged Performed By: #### L 500.4050, L100.0100 ####[facility] [address] [place], [address] WBC Normal 4.4-11.[address] [facility] Comment on above: Result Comment: Canc elled via OM: Order cancelled - Patient discharged Performed By: #### L 500.4050, L100.0100 ####[facility] [address] [place], [address] Comprehensive Metabolic Prof ilon 05-19-2024 ALB Normal 3.2-5.[address] [facility] Comment on above: Result Comment: Canc elled via OM: Order cancelled - Patient discharged Performed By: #### L 500.4050, L100.0100 ####[facility] [address] [place], [address] ALK P Normal 45-[address] [facility] Comment on above: Result Comment: Canc elled via OM: Order cancelled - Patient discharged Performed By: #### L 500.4050, L100.0100 ####[facility] [address] [place], [address] ALT Normal 13-[address] [facility] Comment on above: Result Comment: Canc elled via OM: Order cancelled - Patient discharged Performed By: #### L 500.4050, L100.0100 ####[facility] [address] [place], [address] AST Normal 15-[address] [facility] Comment on above: Result Comment: Canc elled via OM: Order cancelled - Patient discharged Performed By: #### L 500.4050, L100.0100 ####[facility] [address] [place], [address] BUN Normal 7-[address] [facility] Comment on above: Result Comment: Canc elled via OM: Order cancelled - Patient discharged Performed By: #### L 500.4050, L100.0100 ####[facility] [address] [place], [address] BUN/CRE Normal 10-[address] [facility] Comment on above: Result Comment: Canc elled via OM: Order cancelled - Patient discharged Performed By: #### L 500.4050, L100.0100 ####[facility] [address] [place], [address] CA,Total Normal 8.5-10.[address] [facility] Comment on above: Result Comment: Canc elled via OM: Order cancelled - Patient discharged Performed By: #### L 500.4050, L100.0100 ####[facility] [address] [place], [address] CL Normal 98-[address] [facility] Comment on above: Result Comment: Canc elled via OM: Order cancelled - Patient discharged Performed By: #### L 500.4050, L100.0100 ####[facility] [address] [place], [address] CO2 Normal 21.0-32.[address] [facility] Comment on above: Result Comment: Canc elled via OM: Order cancelled - Patient discharged Performed By: #### L 500.4050, L100.0100 ####[facility] [address] [place], [address] CREAT,SERUM Normal 0.55-1.[address] [facility] Comment on above: Result Comment: Canc elled via OM: Order cancelled - Patient discharged Performed By: #### L 500.4050, L100.0100 ####[facility] [address] [place], [address] EST GFR Normal >[address] [facility] Comment on above: Result Comment: Canc elled via OM: Order cancelled - Patient discharged Performed By: #### L 500.4050, L100.0100 ####[facility] [address] [place], [address] EST GFR - AA Normal >[address] [facility] Comment on above: Result Comment: Canc elled via OM: Order cancelled - Patient discharged Performed By: #### L 500.4050, L100.0100 ####[facility] [address] [place], [address] GAP Normal 5-[address] [facility] Comment on above: Result Comment: Canc elled via OM: Order cancelled - Patient discharged Performed By: #### L 500.4050, L100.0100 ####[facility] [address] [place], [address] GLU Normal 74-[address] [facility] Comment on above: Result Comment: Canc elled via OM: Order cancelled - Patient discharged Performed By: #### L 500.4050, L100.0100 ####[facility] [address] [place], [address] Potassium Normal 3.5-5.[address] [facility] Comment on above: Result Comment: Canc elled via OM: Order cancelled - Patient discharged Performed By: #### L 500.4050, L100.0100 ####[facility] [address] [place], [address] T BILI Normal 0.20-1.[address] [facility] Comment on above: Result Comment: Canc elled via OM: Order cancelled - Patient discharged Performed By: #### L 500.4050, L100.0100 ####[facility] [address] [place], [address] T PROT Normal 6.4-8.[address] [facility] Comment on above: Result Comment: Canc elled via OM: Order cancelled - Patient discharged Performed By: #### L 500.4050, L100.0100 ####[facility] [address] [place], [address] Comprehensive Metabolic Profil Normal 136-[address] [facility] Comment on above: Result Comment: Canc elled via OM: Order cancelled - Patient discharged Performed By: #### L 500.4050, L100.0100 ####[facility] [address] [place] [address] Urine Drug Screen (VISTA)on 05-19-2024 AMPHETAMINES Negative Normal <1000 ng/mL [facility] Comment on above: Order Comment: UNK Performed By: #### L 505.5000 ####[facility] [address] [place] [address] BARBITIURATES Negative Normal < 200 ng/mL [facility] Comment on above: Order Comment: UNK Performed By: #### L 505.5000 ####[facility] [address] [place] [address] BENZODIAZIPINE Negative Normal < 200 ng/mL [facility] Comment on above: Order Comment: UNK Performed By: #### L 505.5000 ####[facility] [address] [place] [address] COCAINE Negative Normal < 300 ng/mL [facility] Comment on above: Order Comment: UNK Performed By: #### L 505.5000 ####[facility] [address] [place] [address] ECSTACY Negative Normal < 500 ng/mL [facility] Comment on above: Order Comment: UNK Performed By: #### L 505.5000 ####[facility] [address] [place] [address] METHADONE Negative Normal < 300 ng/mL [facility] Comment on above: Order Comment: UNK Performed By: #### L 505.5000 ####[facility] [address] [place] [address] OPIATES Negative Normal < 300 ng/mL [facility] Comment on above: Order Comment: UNK Performed By: #### L 505.5000 ####[facility] [address] [place] [address] PCP Negative Normal < 25 ng/mL [facility] Comment on above: Order Comment: UNK Performed By: #### L 505.5000 ####[facility] [address] [place], [address] THC Positive Abnormal < 50 ng/mL [facility] Comment on above: Order Comment: UNK Performed By: #### L 505.5000 ####[facility] [address] [place], [address] VISTA UDS PH [address] [facility] Comment on above: Order Comment: UNK Performed By: #### L 505.5000 ####[facility] [address] [place], [address] AMPHETAMINES Normal <1000 ng/mL [facility] Comment on above: Result Comment: Canc elled via OM: Order edited - Discontinuing original order Performed By: #### L 505.5000 ####[facility] [address] [place], [address] BARBITIURATES Normal < 200 ng/mL [facility] Comment on above: Result Comment: Canc elled via OM: Order edited - Discontinuing original order Performed By: #### L 505.5000 ####[facility] [address] [place], [address] BENZODIAZIPINE Normal < 200 ng/mL [facility] Comment on above: Result Comment: Canc elled via OM: Order edited - Discontinuing original order Performed By: #### L 505.5000 ####[facility] [address] [place], [address] COCAINE Normal < 300 ng/mL [facility] Comment on above: Result Comment: Canc elled via OM: Order edited - Discontinuing original order Performed By: #### L 505.5000 ####[facility] [address] [place], [address] DRUG CONFIRM Normal [facility] Comment on above: Result Comment: Canc elled via OM: Order edited - Discontinuing original order Performed By: #### L 505.5000 ####[facility] [address] [place], [address] ECSTACY Normal < 500 ng/mL [facility] Comment on above: Result Comment: Canc elled via OM: Order edited - Discontinuing original order Performed By: #### L 505.5000 ####[facility] [address] [place], [address] METHADONE Normal < 300 ng/mL [facility] Comment on above: Result Comment: Canc elled via OM: Order edited - Discontinuing original order Performed By: #### L 505.5000 ####[facility] [address] [place], [address] OPIATES Normal < 300 ng/mL [facility] Comment on above: Result Comment: Canc elled via OM: Order edited - Discontinuing original order Performed By: #### L 505.5000 ####[facility] [address] [place], [address] PCP Normal < 25 ng/mL [facility] Comment on above: Result Comment: Canc elled via OM: Order edited - Discontinuing original order Performed By: #### L 505.5000 ####[facility] [address] [place], [address] THC Normal < 50 ng/mL [facility] Comment on above: Result Comment: Canc elled via OM: Order edited - Discontinuing original order Performed By: #### L 505.5000 ####[facility] [address] [place], [address] VISTA UDS PH Normal [facility] Comment on above: Result Comment: Canc elled via OM: Order edited - Discontinuing original order Performed By: #### L 505.5000 ####[facility] [address] [place], [address] Basic Metabolic Profile (BMP )on 05-18-2024 BUN/CRE 11.5 RATIO Normal 10-[address] [facility] Comment on above: Performed By: #### L 500.2500, L500.3400 ####[facility] [address] [place], [address] CA,Total 8.2 mg/dL Low 8.5-10.[address] [facility] Comment on above: Performed By: #### L 500.2500, L500.3400 ####[facility] [address] [place], [address] Chloride [Moles/Vol] 110 mmol/L High 98-107 [facility] Comment on above: Performed By: #### L 500.2500, L500.3400 ####[facility] [address] [place], [address] CO2 [Moles/Vol] 24.0 mmol/L Normal 21.0-32.[address] [facility] Comment on above: Performed By: #### L 500.2500, L500.3400 ####[facility] [address] [place], [address] Creatinine [Mass/Vol] 0.87 mg/dL Normal 0.55-1.02 [facility] Comment on above: Result Comment: The validity of the calculated GFR GFRAA in patients over70 years has not been determined. Clinical correlation isessential. Performed By: #### L 500.2500, L500.3400 ####[facility] [address] [place], [id number] ECRCL 72.96 ml/min Normal [facility] Comment on above: Performed By: #### L 500.2500, L500.3400 ####[facility] [address] [place], [address] EST GFR - AA 89 mL/min Normal >[address] [facility] Comment on above: Result Comment: Afri can [place] GFR Calc Performed By: #### L 500.2500, L500.3400 ####[facility] [address] [place], [address] GAP 6 Normal 5-[address] [facility] Comment on above: Performed By: #### L 500.2500, L500.3400 ####[facility] [address] [place], [address] GFR/1.73 sq M.predicted among non-blacks MDRD (S/P/Bld) [Vol rate/Area] 73 mL/min/{1.73_m2} Normal >[address] [facility] Comment on above: Result Comment: Non- GFR Calc Performed By: #### L 500.2500, L500.3400 ####[facility] [address] [place], [address] Glucose [Mass/Vol] 124 mg/dL High 74-106 [facility] Comment on above: Result Comment: Fast ing Glucose result from 100 to 125 mg/dLsuggests IMPAIRED HOMEOSTASIS per A.D.A. criteria. Performed By: #### L 500.2500, L500.3400 ####[facility] [address] [place], [address] Potassium [Moles/Vol] 3.6 mmol/L Normal 3.5-5.1 [facility] Comment on above: Performed By: #### L 500.2500, L500.3400 ####[facility] [address] [place], [address] Sodium [Moles/Vol] 140 mmol/L Normal 136-145 [facility] Comment on above: Performed By: #### L 500.2500, L500.3400 ####[facility] [address] [place], [address] Urea nitrogen [Mass/Vol] 10 mg/dL Normal 7-[address] [facility] Comment on above: Performed By: #### L 500.2500, L500.3400 ####[facility] [address] [place], [address] CBC W/Diff, Automatedon 08- Anisocytosis Ql (Bld) 1+ Normal [facility] Comment on above: Performed By: #### L 100.0100 ####[facility] [address] [place], [address] PLT EST MOD DEC Normal ADEQ [facility] Comment on above: Performed By: #### L 100.0100 ####[facility] [address] [place], [address] Absolute Neut Normal 2.0-7.[address] [facility] Comment on above: Result Comment: Canc elled via OM: Order cancelled - Patient discharged Performed By: #### L 500.4050, L100.0100 ####[facility] [address] [place], [address] HCT Normal 37-[address] [facility] Comment on above: Result Comment: Canc elled via OM: Order cancelled - Patient discharged Performed By: #### L 500.4050, L100.0100 ####[facility] [address] [place], [address] HGB Normal 12.0-15.[address] [facility] Comment on above: Result Comment: Canc elled via OM: Order cancelled - Patient discharged Performed By: #### L 500.4050, L100.0100 ####[facility] [address] [place], [address] MCH Normal 27.0-32.[address] [facility] Comment on above: Result Comment: Canc elled via OM: Order cancelled - Patient discharged Performed By: #### L 500.4050, L100.0100 ####[facility] [address] [place], [address] MCHC Normal 32-[address] [facility] Comment on above: Result Comment: Canc elled via OM: Order cancelled - Patient discharged Performed By: #### L 500.4050, L100.0100 ####[facility] [address] [place], [address] MCV Normal 81-[address] [facility] Comment on above: Result Comment: Canc elled via OM: Order cancelled - Patient discharged Performed By: #### L 500.4050, L100.0100 ####[facility] [address] [place], [address] NEUT% Normal 47-[address] [facility] Comment on above: Result Comment: Canc elled via OM: Order cancelled - Patient discharged Performed By: #### L 500.4050, L100.0100 ####[facility] [address] [place], [address] PLT Normal 150-[address] [facility] Comment on above: Result Comment: Canc elled via OM: Order cancelled - Patient discharged Performed By: #### L 500.4050, L100.0100 ####[facility] [address] [place], [address] RBC Normal 4.2-5.[address] [facility] Comment on above: Result Comment: Canc elled via OM: Order cancelled - Patient discharged Performed By: #### L 500.4050, L100.0100 ####[facility] [address] [place], [address] RDW CV Normal 11.6-14.[address] [facility] Comment on above: Result Comment: Canc elled via OM: Order cancelled - Patient discharged Performed By: #### L 500.4050, L100.0100 ####[facility] [address] [place], [address] RDW SD Normal 35.1-43.[address] [facility] Comment on above: Result Comment: Canc elled via OM: Order cancelled - Patient discharged Performed By: #### L 500.4050, L100.0100 ####[facility] [address] [place], [address] WBC Normal 4.4-11.[address] [facility] Comment on above: Result Comment: Canc elled via OM: Order cancelled - Patient discharged Performed By: #### L 500.4050, L100.0100 ####[facility] [address] [place], [address] Comprehensive Metabolic Prof ilon 05-18-2024 ALB Normal 3.2-5.[address] [facility] Comment on above: Result Comment: Canc elled via OM: Order cancelled - Patient discharged Performed By: #### L 500.4050, L100.0100 ####[facility] [address] [place], [address] ALK P Normal 45-[address] [facility] Comment on above: Result Comment: Canc elled via OM: Order cancelled - Patient discharged Performed By: #### L 500.4050, L100.0100 ####[facility] [address] [place], [address] ALT Normal 13-[address] [facility] Comment on above: Result Comment: Canc elled via OM: Order cancelled - Patient discharged Performed By: #### L 500.4050, L100.0100 ####[facility] [address] [place], [address] AST Normal 15-[address] [facility] Comment on above: Result Comment: Canc elled via OM: Order cancelled - Patient discharged Performed By: #### L 500.4050, L100.0100 ####[facility] [address] [place], [address] BUN Normal 7-[address] [facility] Comment on above: Result Comment: Canc elled via OM: Order cancelled - Patient discharged Performed By: #### L 500.4050, L100.0100 ####[facility] [address] [place], [address] BUN/CRE Normal 10-[address] [facility] Comment on above: Result Comment: Canc elled via OM: Order cancelled - Patient discharged Performed By: #### L 500.4050, L100.0100 ####[facility] [address] [place], [address] CA,Total Normal 8.5-10.[address] [facility] Comment on above: Result Comment: Canc elled via OM: Order cancelled - Patient discharged Performed By: #### L 500.4050, L100.0100 ####[facility] [address] [place], [address] CL Normal 98-[address] [facility] Comment on above: Result Comment: Canc elled via OM: Order cancelled - Patient discharged Performed By: #### L 500.4050, L100.0100 ####[facility] [address] [place], [address] CO2 Normal 21.0-32.[address] [facility] Comment on above: Result Comment: Canc elled via OM: Order cancelled - Patient discharged Performed By: #### L 500.4050, L100.0100 ####[facility] [address] [place], [address] CREAT,SERUM Normal 0.55-1.[address] [facility] Comment on above: Result Comment: Canc elled via OM: Order cancelled - Patient discharged Performed By: #### L 500.4050, L100.0100 ####[facility] [address] [place], [address] EST GFR Normal >[address] [facility] Comment on above: Result Comment: Canc elled via OM: Order cancelled - Patient discharged Performed By: #### L 500.4050, L100.0100 ####[facility] [address] [place], [address] EST GFR - AA Normal >[address] [facility] Comment on above: Result Comment: Canc elled via OM: Order cancelled - Patient discharged Performed By: #### L 500.4050, L100.0100 ####[facility] [address] [place], [address] GAP Normal 5-[address] [facility] Comment on above: Result Comment: Canc elled via OM: Order cancelled - Patient discharged Performed By: #### L 500.4050, L100.0100 ####[facility] [address] [place], [address] GLU Normal 74-[address] [facility] Comment on above: Result Comment: Canc elled via OM: Order cancelled - Patient discharged Performed By: #### L 500.4050, L100.0100 ####[facility] [address] [place], [address] Potassium Normal 3.5-5.[address] [facility] Comment on above: Result Comment: Canc elled via OM: Order cancelled - Patient discharged Performed By: #### L 500.4050, L100.0100 ####[facility] [address] [place], [address] T BILI Normal 0.20-1.[address] [facility] Comment on above: Result Comment: Canc elled via OM: Order cancelled - Patient discharged Performed By: #### L 500.4050, L100.0100 ####[facility] [address] [place], [address] T PROT Normal 6.4-8.[address] [facility] Comment on above: Result Comment: Canc elled via OM: Order cancelled - Patient discharged Performed By: #### L 500.4050, L100.0100 ####[facility] [address] [place], [address] Comprehensive Metabolic Profil Normal 136-[address] [facility] Comment on above: Result Comment: Canc elled via OM: Order cancelled - Patient discharged Performed By: #### L 500.4050, L100.0100 ####[facility] [address] [place], [address] Liver Profileon 05-18-2024 Albumin [Mass/Vol] 2.3 g/dL Low 3.2-5.0 [facility] Comment on above: Performed By: #### L 500.2500, L500.3400 ####[facility] [address] [place], [address] ALK P 129 U/L High 45-[address] [facility] Comment on above: Performed By: #### L 500.2500, L500.3400 ####[facility] [address] [place], [address] ALT [Catalytic activity/Vol] 106 U/L High 13-[address] [facility] Comment on above: Performed By: #### L 500.2500, L500.3400 ####[facility] [address] [place], [address] AST [Catalytic activity/Vol] 162 U/L High 15-[address] [facility] Comment on above: Performed By: #### L 500.2500, L500.3400 ####[facility] [address] [place], [address] Bilirubin [Mass/Vol] 1.60 mg/dL High 0.20-1.00 [facility] Comment on above: Result Comment: For patients on eltrombopag therapy, use of Dimension [place] TBIL is not recommended. Performed By: #### L 500.2500, L500.3400 ####[facility] [address] [place], [address] Bilirubin.direct [Mass/Vol] 0.80 mg/dL High 0.00-0.[address] [facility] Comment on above: Performed By: #### L 500.2500, L500.3400 ####[facility] [address] [place], [address] Globulin (S) [Mass/Vol] 3.9 g/dL Normal 2.2-4.[address] [facility] Comment on above: Performed By: #### L 500.2500, L500.3400 ####[facility] [address] [place], [address] T PROT 6.2 g/dL Low 6.4-8.[address] [facility] Comment on above: Performed By: #### L 500.2500, L500.3400 ####[facility] [address] [place], [address] ,Urineon 05-18-2024 Beta HCG ( test) Ql (U) Negative Normal [facility] Comment on above: Order Comment: COLOR OF URINE MAY AFFECT DIPSTICK RESULTS.CLEAN CATCH Result Comment: Very dilute urine specimens, as indicated by a low specificgravity, may not contain inside sales account representative levels of hCG.If is still suspected, a first morning urinespecimen should be collected 48 hours later and tested. Performed By: #### L 400.0001, L400.7600 ####[facility] [address] [place], [address] Abdomen/Pelvis without Conto n 05-17-2024 Abdomen/Pelvis without Cont Normal [facility] CBC W/Diff, Automatedon 04-27 Absolute Lymph 1.18 X10 3/uL Normal 0.83-4.[address] [facility] Comment on above: Performed By: #### L 501.2450, L500.4050, L100.0100 ####[facility] [address] [place], [address] Absolute Neut 5.1 X10 3/uL Normal 2.0-7.[address] [facility] Comment on above: Performed By: #### L 501.2450, L500.4050, L100.0100 ####[facility] [address] [place], [address] Basophils/100 WBC (Bld) 0.7 % Normal 0-[address] [facility] Comment on above: Performed By: #### L 501.2450, L500.4050, L100.0100 ####[facility] [address] [place], [address] Eosinophils/100 WBC (Bld) 2.0 % Normal 0-[address] [facility] Comment on above: Performed By: #### L 501.2450, L500.4050, L100.0100 ####[facility] [address] [place], [address] Erythrocyte distribution width (RBC) [Ratio] 19.7 % High 11.6-14.[address] [facility] Comment on above: Performed By: #### L 501.2450, L500.4050, L100.0100 ####[facility] [address] [place], [address] Hematocrit (Bld) [Volume fraction] 36.4 % Low 37-[address] [facility] Comment on above: Performed By: #### L 501.2450, L500.4050, L100.0100 ####[facility] [address] [place], [address] Hemoglobin (Bld) [Mass/Vol] 11.9 g/dL Low 12.0-15.[address] [facility] Comment on above: Performed By: #### L 501.2450, L500.4050, L100.0100 ####[facility] [address] [place], [address] IG% 0.300 Normal 0.0-0.[address] [facility] Comment on above: Result Comment: IG% - Immature Granulocytes (promyelocytes, myelocytes andmetamyelocytes) > 1% indicates that a LEFT SHIFT is Present. Performed By: #### L 501.2450, L500.4050, L100.0100 ####[facility] [address] [place], [address] Lymphocytes/100 WBC (Bld) 17.1 % Low 19-[address] [facility] Comment on above: Performed By: #### L 501.2450, L500.4050, L100.0100 ####[facility] [address] [place], [address] MCH (RBC) [Entitic mass] 30.1 pg Normal 27.0-32.[address] [facility] Comment on above: Performed By: #### L 501.2450, L500.4050, L100.0100 ####[facility] [address] [place], [address] MCHC (RBC) [Mass/Vol] 32.7 g/dL Normal 32-36 [facility] Comment on above: Performed By: #### L 501.2450, L500.4050, L100.0100 ####[facility] [address] [place], [address] MCV (RBC) [Entitic vol] 92.2 fL Normal 81-[address] [facility] Comment on above: Performed By: #### L 501.2450, L500.4050, L100.0100 ####[facility] [address] [place], [address] Monocytes/100 WBC (Bld) 6.4 % Normal 0-[address] [facility] Comment on above: Performed By: #### L 501.2450, L500.4050, L100.0100 ####[facility] [address] [place], [address] Neutrophils/100 WBC (Bld) 73.5 % High 47-[address] [facility] Comment on above: Performed By: #### L 501.2450, L500.4050, L100.0100 ####[facility] [address] [place], [address] Nucleated RBC (Bld) [#/Vol] 0 10*3/uL Normal 0-[address] [facility] Comment on above: Performed By: #### L 501.2450, L500.4050, L100.0100 ####[facility] [address] [place], [address] Platelet mean volume (Bld) [Entitic vol] 12.3 fL High 6.2-12.[address] [facility] Comment on above: Performed By: #### L 501.2450, L500.4050, L100.0100 ####[facility] [address] [place], [address] Platelets (Bld) [#/Vol] 72 10*3/uL Low 150-[address] [facility] Comment on above: Performed By: #### L 501.2450, L500.4050, L100.0100 ####[facility] [address] [place], [address] RBC (Bld) [#/Vol] 3.95 10*6/uL Low 4.2-5.4 [facility] Comment on above: Performed By: #### L 501.2450, L500.4050, L100.0100 ####[facility] [address] [place], [address] RDW SD 64.7 fl High 35.1-43.[address] [facility] Comment on above: Performed By: #### L 501.2450, L500.4050, L100.0100 ####[facility] [address] [place], [address] WBC (Bld) [#/Vol] 6.9 10*3/uL Normal 4.4-11.0 [facility] Comment on above: Performed By: #### L 501.2450, L500.4050, L100.0100 ####[facility] [address] [place], [address] Absolute Neut Normal 2.0-7.[address] [facility] Comment on above: Result Comment: Canc elled via OM: Order cancelled - Patient discharged Performed By: #### L 500.4050, L100.0100 ####[facility] [address] [place], [address] HCT Normal 37-[address] [facility] Comment on above: Result Comment: Canc elled via OM: Order cancelled - Patient discharged Performed By: #### L 500.4050, L100.0100 ####[facility] [address] [place], [address] HGB Normal 12.0-15.[address] [facility] Comment on above: Result Comment: Canc elled via OM: Order cancelled - Patient discharged Performed By: #### L 500.4050, L100.0100 ####[facility] [address] [place], [address] MCH Normal 27.0-32.[address] [facility] Comment on above: Result Comment: Canc elled via OM: Order cancelled - Patient discharged Performed By: #### L 500.4050, L100.0100 ####[facility] [address] [place], [address] MCHC Normal 32-[address] [facility] Comment on above: Result Comment: Canc elled via OM: Order cancelled - Patient discharged Performed By: #### L 500.4050, L100.0100 ####[facility] [address] [place], [address] MCV Normal 81-[address] [facility] Comment on above: Result Comment: Canc elled via OM: Order cancelled - Patient discharged Performed By: #### L 500.4050, L100.0100 ####[facility] [address] [place], [address] NEUT% Normal 47-[address] [facility] Comment on above: Result Comment: Canc elled via OM: Order cancelled - Patient discharged Performed By: #### L 500.4050, L100.0100 ####[facility] [address] [place], [address] PLT Normal 150-[address] [facility] Comment on above: Result Comment: Canc elled via OM: Order cancelled - Patient discharged Performed By: #### L 500.4050, L100.0100 ####[facility] [address] [place], [address] RBC Normal 4.2-5.[address] [facility] Comment on above: Result Comment: Canc elled via OM: Order cancelled - Patient discharged Performed By: #### L 500.4050, L100.0100 ####[facility] [address] [place], [address] RDW CV Normal 11.6-14.[address] [facility] Comment on above: Result Comment: Canc elled via OM: Order cancelled - Patient discharged Performed By: #### L 500.4050, L100.0100 ####[facility] [address] [place], [address] RDW SD Normal 35.1-43.[address] [facility] Comment on above: Result Comment: Canc elled via OM: Order cancelled - Patient discharged Performed By: #### L 500.4050, L100.0100 ####[facility] [address] [place], [address] WBC Normal 4.4-11.[address] [facility] Comment on above: Result Comment: Canc elled via OM: Order cancelled - Patient discharged Performed By: #### L 500.4050, L100.0100 ####[facility] [address] [place], [address] Comprehensive Metabolic Prof ilon 05-17-2024 Albumin [Mass/Vol] 2.6 g/dL Low 3.2-5.0 [facility] Comment on above: Performed By: #### L 501.2450, L500.4050, L100.0100 ####[facility] [address] [place], [address] Albumin/Globulin [Mass ratio] 0.6 {ratio} Low 0.9-2.[address] [facility] Comment on above: Performed By: #### L 501.2450, L500.4050, L100.0100 ####[facility] [address] [place], [address] ALK P 152 U/L High 45-[address] [facility] Comment on above: Performed By: #### L 501.2450, L500.4050, L100.0100 ####[facility] [address] [place], [address] ALT [Catalytic activity/Vol] 124 U/L High 13-[address] [facility] Comment on above: Performed By: #### L 501.2450, L500.4050, L100.0100 ####[facility] [address] [place], [address] AST [Catalytic activity/Vol] 196 U/L High 15-[address] [facility] Comment on above: Performed By: #### L 501.2450, L500.4050, L100.0100 ####[facility] [address] [place], [address] Bilirubin [Mass/Vol] 1.70 mg/dL High 0.20-1.00 [facility] Comment on above: Result Comment: For patients on eltrombopag therapy, use of Dimension [place] TBIL is not recommended. Performed By: #### L 501.2450, L500.4050, L100.0100 ####[facility] [address] [place], [address] BUN/CRE 12.5 RATIO Normal 10-[address] [facility] Comment on above: Performed By: #### L 501.2450, L500.4050, L100.0100 ####[facility] [address] [place], [address] CA,Total 9.1 mg/dL Normal 8.5-10.[address] [facility] Comment on above: Performed By: #### L 501.2450, L500.4050, L100.0100 ####[facility] [address] [place], [address] Chloride [Moles/Vol] 111 mmol/L High 98-107 [facility] Comment on above: Performed By: #### L 501.2450, L500.4050, L100.0100 ####[facility] [address] [place], [address] CO2 [Moles/Vol] 24.0 mmol/L Normal 21.0-32.[address] [facility] Comment on above: Performed By: #### L 501.2450, L500.4050, L100.0100 ####[facility] [address] [place], [address] Creatinine [Mass/Vol] 0.96 mg/dL Normal 0.55-1.02 [facility] Comment on above: Result Comment: The validity of the calculated GFR GFRAA in patients over70 years has not been determined. Clinical correlation isessential. Performed By: #### L 501.2450, L500.4050, L100.0100 ####[facility] [address] [place], [address] ECRCL 66.69 ml/min Normal [facility] Comment on above: Performed By: #### L 501.2450, L500.4050, L100.0100 ####[facility] [address] [place], [address] EST GFR - AA 79 mL/min Normal >[address] [facility] Comment on above: Result Comment: Afri can [place] GFR Calc Performed By: #### L 501.2450, L500.4050, L100.0100 ####[facility] [address] [place], [address] GAP 3 Low 5-[address] [facility] Comment on above: Performed By: #### L 501.2450, L500.4050, L100.0100 ####[facility] [address] [place], [address] GFR/1.73 sq M.predicted among non-blacks MDRD (S/P/Bld) [Vol rate/Area] 65 mL/min/{1.73_m2} Normal >[address] [facility] Comment on above: Result Comment: Non- GFR Calc Performed By: #### L 501.2450, L500.4050, L100.0100 ####[facility] [address] [place], [address] Globulin (S) [Mass/Vol] 4.5 g/dL High 2.2-4.[address] [facility] Comment on above: Performed By: #### L 501.2450, L500.4050, L100.0100 ####[facility] [address] [place], [address] Glucose [Mass/Vol] 131 mg/dL High 74-106 [facility] Comment on above: Result Comment: Fast ing Glucose result greater than or equal to 126 mg/dLsuggests DIABETES MELLITUS per A.D.A. criteria. Performed By: #### L 501.2450, L500.4050, L100.0100 ####[facility] [address] [place], [address] Potassium [Moles/Vol] 4.2 mmol/L Normal 3.5-5.1 [facility] Comment on above: Performed By: #### L 501.2450, L500.4050, L100.0100 ####[facility] [address] [place], [address] Sodium [Moles/Vol] 138 mmol/L Normal 136-145 [facility] Comment on above: Performed By: #### L 501.2450, L500.4050, L100.0100 ####[facility] [address] [place], [address] T PROT 7.1 g/dL Normal 6.4-8.[address] [facility] Comment on above: Performed By: #### L 501.2450, L500.4050, L100.0100 ####[facility] [address] [place], [address] Urea nitrogen [Mass/Vol] 12 mg/dL Normal 7-[address] [facility] Comment on above: Performed By: #### L 501.2450, L500.4050, L100.0100 ####[facility] [address] [place], [address] ALB Normal 3.2-5.[address] [facility] Comment on above: Result Comment: Canc elled via OM: Order cancelled - Patient discharged Performed By: #### L 500.4050, L100.0100 ####[facility] [address] [place], [address] ALK P Normal 45-[address] [facility] Comment on above: Result Comment: Canc elled via OM: Order cancelled - Patient discharged Performed By: #### L 500.4050, L100.0100 ####[facility] [address] [place], [address] ALT Normal 13-[address] [facility] Comment on above: Result Comment: Canc elled via OM: Order cancelled - Patient discharged Performed By: #### L 500.4050, L100.0100 ####[facility] [address] [place], [address] AST Normal 15-[address] [facility] Comment on above: Result Comment: Canc elled via OM: Order cancelled - Patient discharged Performed By: #### L 500.4050, L100.0100 ####[facility] [address] [place], [address] BUN Normal 7-[address] [facility] Comment on above: Result Comment: Canc elled via OM: Order cancelled - Patient discharged Performed By: #### L 500.4050, L100.0100 ####[facility] [address] [place], [address] BUN/CRE Normal 10-[address] [facility] Comment on above: Result Comment: Canc elled via OM: Order cancelled - Patient discharged Performed By: #### L 500.4050, L100.0100 ####[facility] [address] [place], [address] CA,Total Normal 8.5-10.[address] [facility] Comment on above: Result Comment: Canc elled via OM: Order cancelled - Patient discharged Performed By: #### L 500.4050, L100.0100 ####[facility] [address] [place], [address] CL Normal 98-[address] [facility] Comment on above: Result Comment: Canc elled via OM: Order cancelled - Patient discharged Performed By: #### L 500.4050, L100.0100 ####[facility] [address] [place], [address] CO2 Normal 21.0-32.[address] [facility] Comment on above: Result Comment: Canc elled via OM: Order cancelled - Patient discharged Performed By: #### L 500.4050, L100.0100 ####[facility] [address] [place], [address] CREAT,SERUM Normal 0.55-1.[address] [facility] Comment on above: Result Comment: Canc elled via OM: Order cancelled - Patient discharged Performed By: #### L 500.4050, L100.0100 ####[facility] [address] [place], [address] EST GFR Normal >[address] [facility] Comment on above: Result Comment: Canc elled via OM: Order cancelled - Patient discharged Performed By: #### L 500.4050, L100.0100 ####[facility] [address] [place], [address] EST GFR - AA Normal >[address] [facility] Comment on above: Result Comment: Canc elled via OM: Order cancelled - Patient discharged Performed By: #### L 500.4050, L100.0100 ####[facility] [address] [place], [address] GAP Normal 5-[address] [facility] Comment on above: Result Comment: Canc elled via OM: Order cancelled - Patient discharged Performed By: #### L 500.4050, L100.0100 ####[facility] [address] [place], [address] GLU Normal 74-[address] [facility] Comment on above: Result Comment: Canc elled via OM: Order cancelled - Patient discharged Performed By: #### L 500.4050, L100.0100 ####[facility] [address] [place], [address] Potassium Normal 3.5-5.[address] [facility] Comment on above: Result Comment: Canc elled via OM: Order cancelled - Patient discharged Performed By: #### L 500.4050, L100.0100 ####[facility] [address] [place], [address] T BILI Normal 0.20-1.[address] [facility] Comment on above: Result Comment: Canc elled via OM: Order cancelled - Patient discharged Performed By: #### L 500.4050, L100.0100 ####[facility] [address] [place], [address] T PROT Normal 6.4-8.[address] [facility] Comment on above: Result Comment: Canc elled via OM: Order cancelled - Patient discharged Performed By: #### L 500.4050, L100.0100 ####[facility] [address] [place], [address] Comprehensive Metabolic Profil Normal 136-[address] [facility] Comment on above: Result Comment: Canc elled via OM: Order cancelled - Patient discharged Performed By: #### L 500.4050, L100.0100 ####[facility] [address] [place], [address] Emergency Department Summary on 05-17-2024 Emergency Department Summary Normal [facility] H AND P Exam - Hospitaliston 05-17-2024 H&P Exam - Hospitalist Normal [facility] Lipaseon 05-17-2024 Lipase [Catalytic activity/Vol] 69 U/L Normal 13-[address] [facility] Comment on above: Result Comment: My jimenez note:LIPASE revised reference range effective 23.New Lipase methodology. Expected to produce lower valuesthan the previous assay method.NEW Reference Range: 13 - 75 U/L Performed By: #### L 501.2450, L500.4050, L100.0100 ####[facility] [address] [place], [address] Urinalysis, Completeon 05-17 EPI,RENAL 0-5 SEEN Normal 0-[address] [facility] Comment on above: Order Comment: COLOR OF URINE MAY AFFECT DIPSTICK RESULTS.CLEAN CATCH Performed By: #### L 400.0001, L400.7600 ####[facility] [address] [place], [address] BACTERIA 1+ /hpf Normal None Seen [facility] Comment on above: Order Comment: COLOR OF URINE MAY AFFECT DIPSTICK RESULTS.CLEAN CATCH Performed By: #### L 400.0001, L400.7600 ####[facility] [address] [place], [address] CAST,COARSE GR 0-5 SEEN Normal 0-5 /lpf [facility] Comment on above: Order Comment: COLOR OF URINE MAY AFFECT DIPSTICK RESULTS.CLEAN CATCH Performed By: #### L 400.0001, L400.7600 ####[facility] [address] [place], [address] EPI,SQUAMOUS 5-10 SEEN Normal 5-[address] [facility] Comment on above: Order Comment: COLOR OF URINE MAY AFFECT DIPSTICK RESULTS.CLEAN CATCH Performed By: #### L 400.0001, L400.7600 ####[facility] [address] [place], [address] RBC 50-100 SEEN Normal 0-[address] [facility] Comment on above: Order Comment: COLOR OF URINE MAY AFFECT DIPSTICK RESULTS.CLEAN CATCH Performed By: #### L 400.0001, L400.7600 ####[facility] [address] [place], [address] WBC 25-50 SEEN Normal 0-[address] [facility] Comment on above: Order Comment: COLOR OF URINE MAY AFFECT DIPSTICK RESULTS.CLEAN CATCH Performed By: #### L 400.0001, L400.7600 ####[facility] [address] [place], [address] Mucus Ql (Urine sed) 0 SEEN Normal [facility] Comment on above: Order Comment: COLOR OF URINE MAY AFFECT DIPSTICK RESULTS.CLEAN CATCH Performed By: #### L 400.0001, L400.7600 ####[facility] [address] [place], [address] CBC W/Diff, Automatedon 08-2 Absolute Neut Normal 2.0-7.[address] [facility] Comment on above: Result Comment: Canc elled via OM: Order cancelled - Patient discharged Performed By: #### L 500.4050, L100.0100 ####[facility] [address] [place], [address] HCT Normal 37-[address] [facility] Comment on above: Result Comment: Canc elled via OM: Order cancelled - Patient discharged Performed By: #### L 500.4050, L100.0100 ####[facility] [address] [place], [address] HGB Normal 12.0-15.[address] [facility] Comment on above: Result Comment: Canc elled via OM: Order cancelled - Patient discharged Performed By: #### L 500.4050, L100.0100 ####[facility] [address] [place], [address] MCH Normal 27.0-32.[address] [facility] Comment on above: Result Comment: Canc elled via OM: Order cancelled - Patient discharged Performed By: #### L 500.4050, L100.0100 ####[facility] [address] [place], [address] MCHC Normal 32-[address] [facility] Comment on above: Result Comment: Canc elled via OM: Order cancelled - Patient discharged Performed By: #### L 500.4050, L100.0100 ####[facility] [address] [place], [address] MCV Normal 81-[address] [facility] Comment on above: Result Comment: Canc elled via OM: Order cancelled - Patient discharged Performed By: #### L 500.4050, L100.0100 ####[facility] [address] [place], [address] NEUT% Normal 47-[address] [facility] Comment on above: Result Comment: Canc elled via OM: Order cancelled - Patient discharged Performed By: #### L 500.4050, L100.0100 ####[facility] [address] [place], [address] PLT Normal 150-[address] [facility] Comment on above: Result Comment: Canc elled via OM: Order cancelled - Patient discharged Performed By: #### L 500.4050, L100.0100 ####[facility] [address] [place], [address] RBC Normal 4.2-5.[address] [facility] Comment on above: Result Comment: Canc elled via OM: Order cancelled - Patient discharged Performed By: #### L 500.4050, L100.0100 ####[facility] [address] [place], [address] RDW CV Normal 11.6-14.[address] [facility] Comment on above: Result Comment: Canc elled via OM: Order cancelled - Patient discharged Performed By: #### L 500.4050, L100.0100 ####[facility] [address] [place], [address] RDW SD Normal 35.1-43.[address] [facility] Comment on above: Result Comment: Canc elled via OM: Order cancelled - Patient discharged Performed By: #### L 500.4050, L100.0100 ####[facility] [address] [place], [address] WBC Normal 4.4-11.[address] [facility] Comment on above: Result Comment: Canc elled via OM: Order cancelled - Patient discharged Performed By: #### L 500.4050, L100.0100 ####[facility] [address] [place], [address] Comprehensive Metabolic Prof ilon 05-16-2024 ALB Normal 3.2-5.[address] [facility] Comment on above: Result Comment: Canc elled via OM: Order cancelled - Patient discharged Performed By: #### L 500.4050, L100.0100 ####[facility] [address] [place], [address] ALK P Normal 45-[address] [facility] Comment on above: Result Comment: Canc elled via OM: Order cancelled - Patient discharged Performed By: #### L 500.4050, L100.0100 ####[facility] [address] [place], [address] ALT Normal 13-[address] [facility] Comment on above: Result Comment: Canc elled via OM: Order cancelled - Patient discharged Performed By: #### L 500.4050, L100.0100 ####[facility] [address] [place], [address] AST Normal 15-[address] [facility] Comment on above: Result Comment: Canc elled via OM: Order cancelled - Patient discharged Performed By: #### L 500.4050, L100.0100 ####[facility] [address] [place], [address] BUN Normal 7-[address] [facility] Comment on above: Result Comment: Canc elled via OM: Order cancelled - Patient discharged Performed By: #### L 500.4050, L100.0100 ####[facility] [address] [place], [address] BUN/CRE Normal 10-[address] [facility] Comment on above: Result Comment: Canc elled via OM: Order cancelled - Patient discharged Performed By: #### L 500.4050, L100.0100 ####[facility] [address] [place], [address] CA,Total Normal 8.5-10.[address] [facility] Comment on above: Result Comment: Canc elled via OM: Order cancelled - Patient discharged Performed By: #### L 500.4050, L100.0100 ####[facility] [address] [place], [address] CL Normal 98-[address] [facility] Comment on above: Result Comment: Canc elled via OM: Order cancelled - Patient discharged Performed By: #### L 500.4050, L100.0100 ####[facility] [address] [place], [address] CO2 Normal 21.0-32.[address] [facility] Comment on above: Result Comment: Canc elled via OM: Order cancelled - Patient discharged Performed By: #### L 500.4050, L100.0100 ####[facility] [address] [place], [address] CREAT,SERUM Normal 0.55-1.[address] [facility] Comment on above: Result Comment: Canc elled via OM: Order cancelled - Patient discharged Performed By: #### L 500.4050, L100.0100 ####[facility] [address] [place], [address] EST GFR Normal >[address] [facility] Comment on above: Result Comment: Canc elled via OM: Order cancelled - Patient discharged Performed By: #### L 500.4050, L100.0100 ####[facility] [address] [place], [address] EST GFR - AA Normal >[address] [facility] Comment on above: Result Comment: Canc elled via OM: Order cancelled - Patient discharged Performed By: #### L 500.4050, L100.0100 ####[facility] [address] [place], [address] GAP Normal 5-[address] [facility] Comment on above: Result Comment: Canc elled via OM: Order cancelled - Patient discharged Performed By: #### L 500.4050, L100.0100 ####[facility] [address] [place], [address] GLU Normal 74-[address] [facility] Comment on above: Result Comment: Canc elled via OM: Order cancelled - Patient discharged Performed By: #### L 500.4050, L100.0100 ####[facility] [address] [place], [address] Potassium Normal 3.5-5.[address] [facility] Comment on above: Result Comment: Canc elled via OM: Order cancelled - Patient discharged Performed By: #### L 500.4050, L100.0100 ####[facility] [address] [place], [address] T BILI Normal 0.20-1.[address] [facility] Comment on above: Result Comment: Canc elled via OM: Order cancelled - Patient discharged Performed By: #### L 500.4050, L100.0100 ####[facility] [address] [place], [address] T PROT Normal 6.4-8.[address] [facility] Comment on above: Result Comment: Canc elled via OM: Order cancelled - Patient discharged Performed By: #### L 500.4050, L100.0100 ####[facility] [address] [place], [address] Comprehensive Metabolic Profil Normal 136-[address] [facility] Comment on above: Result Comment: Canc elled via OM: Order cancelled - Patient discharged Performed By: #### L 500.4050, L100.0100 ####[facility] [address] [place], [address] CBC W/Diff, Automatedon 08-2 0-2024 Absolute Lymph 2.43 X10 3/uL Normal 0.83-4.[address] [facility] Comment on above: Performed By: #### L 500.4050, L100.0100 ####[facility] [address] [place], [address] Absolute Neut 4.8 X10 3/uL Normal 2.0-7.[address] [facility] Comment on above: Performed By: #### L 500.4050, L100.0100 ####[facility] [address] [place], [address] Basophils/100 WBC (Bld) 0.8 % Normal 0-[address] [facility] Comment on above: Performed By: #### L 500.4050, L100.0100 ####[facility] [address] [place], [address] Eosinophils/100 WBC (Bld) 4.8 % Normal 0-[address] [facility] Comment on above: Performed By: #### L 500.4050, L100.0100 ####[facility] [address] [place], [address] Erythrocyte distribution width (RBC) [Ratio] 19.2 % High 11.6-14.[address] [facility] Comment on above: Performed By: #### L 500.4050, L100.0100 ####[facility] [address] [place], [address] Hematocrit (Bld) [Volume fraction] 33.5 % Low 37-[address] [facility] Comment on above: Performed By: #### L 500.4050, L100.0100 ####[facility] [address] [place], [address] Hemoglobin (Bld) [Mass/Vol] 11.3 g/dL Low 12.0-15.[address] [facility] Comment on above: Performed By: #### L 500.4050, L100.0100 ####[facility] [address] [place], [address] IG% 0.600 Normal 0.0-0.[address] [facility] Comment on above: Result Comment: IG% - Immature Granulocytes (promyelocytes, myelocytes andmetamyelocytes) > 1% indicates that a LEFT SHIFT is Present. Performed By: #### L 500.4050, L100.0100 ####[facility] [address] [place], [address] Lymphocytes/100 WBC (Bld) 28.1 % Normal 19-[address] [facility] Comment on above: Performed By: #### L 500.4050, L100.0100 ####[facility] [address] [place], [address] MCH (RBC) [Entitic mass] 30.7 pg Normal 27.0-32.[address] [facility] Comment on above: Performed By: #### L 500.4050, L100.0100 ####[facility] [address] [place], [address] MCHC (RBC) [Mass/Vol] 33.7 g/dL Normal 32-36 [facility] Comment on above: Performed By: #### L 500.4050, L100.0100 ####[facility] [address] [place], [address] MCV (RBC) [Entitic vol] 91.0 fL Normal 81-[address] [facility] Comment on above: Performed By: #### L 500.4050, L100.0100 ####[facility] [address] [place], [address] Monocytes/100 WBC (Bld) 10.5 % High 0-[address] [facility] Comment on above: Performed By: #### L 500.4050, L100.0100 ####[facility] [address] [place], [address] Neutrophils/100 WBC (Bld) 55.2 % Normal 47-[address] [facility] Comment on above: Performed By: #### L 500.4050, L100.0100 ####[facility] [address] [place], [address] Nucleated RBC (Bld) [#/Vol] 0 10*3/uL Normal 0-[address] [facility] Comment on above: Performed By: #### L 500.4050, L100.0100 ####[facility] [address] [place], [address] Platelet mean volume (Bld) [Entitic vol] 11.6 fL Normal 6.2-12.[address] [facility] Comment on above: Performed By: #### L 500.4050, L100.0100 ####[facility] [address] [place], [address] Platelets (Bld) [#/Vol] 71 10*3/uL Low 150-[address] [facility] Comment on above: Performed By: #### L 500.4050, L100.0100 ####[facility] [address] [place], [address] RBC (Bld) [#/Vol] 3.68 10*6/uL Low 4.2-5.4 [facility] Comment on above: Performed By: #### L 500.4050, L100.0100 ####[facility] [address] [place], [address] RDW SD 62.2 fl High 35.1-43.[address] [facility] Comment on above: Performed By: #### L 500.4050, L100.0100 ####[facility] [address] [place], [address] WBC (Bld) [#/Vol] 8.7 10*3/uL Normal 4.4-11.0 [facility] Comment on above: Performed By: #### L 500.4050, L100.0100 ####[facility] [address] [place], [address] [facility] CAROLINA HIGHTOWER ([id number]) 1975 F Date Time Provider Department 05/15/24 KRISHNA LARA [facility] During your visit today, we recorded the following information about you: Krishna Lara APRN.[facility] 05/15/2024 9:01 AM Signed Please let patient know she is negative for trichomonas. Lyssa Hector MA 05/15/2024 9:26 AM Signed Message sent on [employer] with normal results Lyssa Hector MA Allergies As of Date: 05/15/2024 Noted Allergy Reaction ASPIRIN 06/02/2005 Comments: UNCERTAIN =CHILDHOOD BUPROPION 06/11/2019 14 - Other: See Comments CODEINE 06/02/2005 2 - Rash PREDNISONE 06/19/2019 2 - Rash WELLBUTRIN (BUPROPION HCL) 09/29/2012 14 - Other: See Comments Comments: seizures Date Reviewed: 05/11/2024 Reviewed by: Dev Thacker, RT(R) - Fully Assessed Reason for Visit: Results [95] Prescriptions as of 05/15/2024 - ibuprofen (MOTRIN) 600 mg tablet Take 1 tablet by mouth every 6 hours as needed for pain. - gabapentin (NEURONTIN) 100 mg capsule Take 1 capsule by mouth two times a day for 180 days. - spironolactone (ALDACTONE) 50 mg tablet Take 1 tablet by mouth two times a day. - furosemide (LASIX) 40 mg tablet Take 1 tablet by mouth once daily. - fluticasone (FLONASE) 50 mcg/actuation nasal spray Use 2 Sprays in each nostril once daily. Rinse mouth after use. - mupirocin (BACTROBAN) 2 % ointment Apply [...] 1 Patch as directed as directed. - ondansetron orally disintegrating (ZOFRAN ODT) 4 mg disintegrating tablet Take 1 tablet by mouth every 6 hours as needed for nausea/vomiting. - albuterol HFA (PROAIR HFA) 90 mcg/actuation inhaler Inhale 2 Puffs as instructed every 4 hours as needed. - pantoprazole DR (PROTONIX) 40 mg tablet Take 1 tablet by mouth twice daily before meals. Take on empty stomach, 1/2 hr before meal. 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 Metabolic [facility] iltyler 05-15-2024 Albumin [Mass/Vol] 2.7 g/dL Low 3.2-5.0 [facility] Comment on above: Performed By: #### L 500.4050, L100.0100 ####[facility] [address] [place], [address] Albumin/Globulin [Mass ratio] 0.6 {ratio} Low 0.9-2.[address] [facility] Comment on above: Performed By: #### L 500.4050, L100.0100 ####[facility] [address] [place], [address] ALK P 142 U/L High 45-[address] [facility] Comment on above: Performed By: #### L 500.4050, L100.0100 ####[facility] [address] [place], [address] ALT [Catalytic activity/Vol] 116 U/L High 13-[address] [facility] Comment on above: Performed By: #### L 500.4050, L100.0100 ####[facility] [address] [place], [address] AST [Catalytic activity/Vol] 157 U/L High 15-[address] [facility] Comment on above: Performed By: #### L 500.4050, L100.0100 ####[facility] [address] [place], [address] Bilirubin [Mass/Vol] 2.10 mg/dL High 0.20-1.00 [facility] Comment on above: Result Comment: For patients on eltrombopag therapy, use of Dimension [place] TBIL is not recommended. Performed By: #### L 500.4050, L100.0100 ####[facility] [address] [place], [address] BUN/CRE 11.8 RATIO Normal 10-[address] [facility] Comment on above: Performed By: #### L 500.4050, L100.0100 ####[facility] [address] [place], [address] CA,Total 8.6 mg/dL Normal 8.5-10.[address] [facility] Comment on above: Performed By: #### L 500.4050, L100.0100 ####[facility] [address] [place], [address] Chloride [Moles/Vol] 112 mmol/L High 98-107 [facility] Comment on above: Performed By: #### L 500.4050, L100.0100 ####[facility] [address] [place], [address] CO2 [Moles/Vol] 27.0 mmol/L Normal 21.0-32.[address] [facility] Comment on above: Performed By: #### L 500.4050, L100.0100 ####[facility] [address] [place], [address] Creatinine [Mass/Vol] 0.84 mg/dL Normal 0.55-1.02 [facility] Comment on above: Result Comment: The validity of the calculated GFR GFRAA in patients over70 years has not been determined. Clinical correlation isessential. Performed By: #### L 500.4050, L100.0100 ####[facility] [address] [place], [address] ECRCL 74.51 ml/min Normal [facility] Comment on above: Performed By: #### L 500.4050, L100.0100 ####[facility] [address] [place], [address] EST GFR - AA 91 mL/min Normal >[address] [facility] Comment on above: Result Comment: Afri can [place] GFR Calc Performed By: #### L 500.4050, L100.0100 ####[facility] [address] [place], [address] GAP 1 Low 5-[address] [facility] Comment on above: Performed By: #### L 500.4050, L100.0100 ####[facility] [address] [place], [address] GFR/1.73 sq M.predicted among non-blacks MDRD (S/P/Bld) [Vol rate/Area] 76 mL/min/{1.73_m2} Normal >[address] [facility] Comment on above: Result Comment: Non- GFR Calc Performed By: #### L 500.4050, L100.0100 ####[facility] [address] [place], [address] Globulin (S) [Mass/Vol] 4.3 g/dL High 2.2-4.[address] [facility] Comment on above: Performed By: #### L 500.4050, L100.0100 ####[facility] [address] [place], [address] Glucose [Mass/Vol] 104 mg/dL Normal 74-106 [facility] Comment on above: Result Comment: Fast ing Glucose result from 100 to 125 mg/dLsuggests IMPAIRED HOMEOSTASIS per A.D.A. criteria. Performed By: #### L 500.4050, L100.0100 ####[facility] [address] [place], [address] Potassium [Moles/Vol] 3.8 mmol/L Normal 3.5-5.1 [facility] Comment on above: Performed By: #### L 500.4050, L100.0100 ####[facility] [address] [place], [address] Sodium [Moles/Vol] 140 mmol/L Normal 136-145 [facility] Comment on above: Performed By: #### L 500.4050, L100.0100 ####[facility] [address] [place], [address] T PROT 7.0 g/dL Normal 6.4-8.[address] [facility] Comment on above: Performed By: #### L 500.4050, L100.0100 ####[facility] [address] [place], [address] Urea nitrogen [Mass/Vol] 10 mg/dL Normal 7-[address] [facility] Comment on above: Performed By: #### L 500.4050, L100.0100 ####[facility] [address] [place], [address] Discharge Instructionon 04-27 Discharge Instruction Normal [facility] MR/POSTOP.ANEon 05-15-2024 MR/POSTOP.ANE Normal [facility] MR/[id number] 05-15-2024 MR/POSTOPAN2 Normal [facility] Operative Reporton Operative Report Normal [facility] Urine Cultureon 05-15-2024 URC Clinical correlation necessary, Possible skin contamination. Presumptive Lactobacillus sp. [place] Count 50,000-80,[address] [facility] Comment on above: Performed By: #### M 100.2200 ####[facility] [address] [place], [address] 12 Lead EKGon 05-14-2024 12 Lead EKG Normal [facility] Abdomen Limitedon 05-14-2024 Abdomen Limited Normal [facility] Basic Metabolic Profile (BMP )on 05-14-2024 BUN/CRE 14.2 RATIO Normal 10-[address] [facility] Comment on above: Performed By: #### L 500.2500, L100.0100 ####[facility] [address] [place], [address] CA,Total 8.9 mg/dL Normal 8.5-10.[address] [facility] Comment on above: Performed By: #### L 500.2500, L100.0100 ####[facility] [address] [place], [address] Chloride [Moles/Vol] 111 mmol/L High 98-107 [facility] Comment on above: Performed By: #### L 500.2500, L100.0100 ####[facility] [address] [place], [address] CO2 [Moles/Vol] 22.0 mmol/L Normal 21.0-32.[address] [facility] Comment on above: Performed By: #### L 500.2500, L100.0100 ####[facility] [address] [place], [address] Creatinine [Mass/Vol] 0.85 mg/dL Normal 0.55-1.02 [facility] Comment on above: Result Comment: The validity of the calculated GFR GFRAA in patients over70 years has not been determined. Clinical correlation isessential. Performed By: #### L 500.2500, L100.0100 ####[facility] [address] [place], [address] ECRCL 73.64 ml/min Normal [facility] Comment on above: Performed By: #### L 500.2500, L100.0100 ####[facility] [address] [place], [address] EST GFR - AA 91 mL/min Normal >[address] [facility] Comment on above: Result Comment: Afri can [place] GFR Calc Performed By: #### L 500.2500, L100.0100 ####[facility] [address] [place], [address] GAP 5 Normal 5-[address] [facility] Comment on above: Performed By: #### L 500.2500, L100.0100 ####[facility] [address] [place], [address] GFR/1.73 sq M.predicted among non-blacks MDRD (S/P/Bld) [Vol rate/Area] 76 mL/min/{1.73_m2} Normal >[address] [facility] Comment on above: Result Comment: Non- GFR Calc Performed By: #### L 500.2500, L100.0100 ####[facility] [address] [place], [address] Glucose [Mass/Vol] 121 mg/dL High 74-106 [facility] Comment on above: Result Comment: Fast ing Glucose result from 100 to 125 mg/dLsuggests IMPAIRED HOMEOSTASIS per A.D.A. criteria. Performed By: #### L 500.2500, L100.0100 ####[facility] [address] [place], [address] Potassium [Moles/Vol] 3.4 mmol/L Low 3.5-5.1 [facility] Comment on above: Performed By: #### L 500.2500, L100.0100 ####[facility] [address] [place], [address] Sodium [Moles/Vol] 138 mmol/L Normal 136-145 [facility] Comment on above: Performed By: #### L 500.2500, L100.0100 ####[facility] [address] [place], [address] Urea nitrogen [Mass/Vol] 12 mg/dL Normal 7-[address] [facility] Comment on above: Performed By: #### L 500.2500, L100.0100 ####[facility] [address] [place], [address] CBC W/Diff, Automatedon 04-26 Absolute Lymph 1.49 X10 3/uL Normal 0.83-4.[address] [facility] Comment on above: Performed By: #### L 500.2500, L100.0100 ####[facility] [address] [place], [address] Absolute Neut 6.1 X10 3/uL Normal 2.0-7.[address] [facility] Comment on above: Performed By: #### L 500.2500, L100.0100 ####[facility] [address] [place], [address] Basophils/100 WBC (Bld) 0.7 % Normal 0-[address] [facility] Comment on above: Performed By: #### L 500.2500, L100.0100 ####[facility] [address] [place], [address] Eosinophils/100 WBC (Bld) 5.2 % High 0-[address] [facility] Comment on above: Performed By: #### L 500.2500, L100.0100 ####[facility] [address] [place], [address] Erythrocyte distribution width (RBC) [Ratio] 18.6 % High 11.6-14.[address] [facility] Comment on above: Performed By: #### L 500.2500, L100.0100 ####[facility] [address] [place], [address] Hematocrit (Bld) [Volume fraction] 32.4 % Low 37-[address] [facility] Comment on above: Performed By: #### L 500.2500, L100.0100 ####[facility] [address] [place], [address] Hemoglobin (Bld) [Mass/Vol] 11.2 g/dL Low 12.0-15.[address] [facility] Comment on above: Performed By: #### L 500.2500, L100.0100 ####[facility] [address] [place], [address] IG% 0.500 Normal 0.0-0.[address] [facility] Comment on above: Result Comment: IG% - Immature Granulocytes (promyelocytes, myelocytes andmetamyelocytes) > 1% indicates that a LEFT SHIFT is Present. Performed By: #### L 500.2500, L100.0100 ####[facility] [address] [place], [address] Lymphocytes/100 WBC (Bld) 15.9 % Low 19-[address] [facility] Comment on above: Performed By: #### L 500.2500, L100.0100 ####[facility] [address] [place], [address] MCH (RBC) [Entitic mass] 30.8 pg Normal 27.0-32.[address] [facility] Comment on above: Performed By: #### L 500.2500, L100.0100 ####[facility] [address] [place], [address] MCHC (RBC) [Mass/Vol] 34.6 g/dL Normal 32-36 [facility] Comment on above: Performed By: #### L 500.2500, L100.0100 ####[facility] [address] [place], [address] MCV (RBC) [Entitic vol] 89.0 fL Normal 81-[address] [facility] Comment on above: Performed By: #### L 500.2500, L100.0100 ####[facility] [address] [place], [address] Monocytes/100 WBC (Bld) 12.9 % High 0-[address] [facility] Comment on above: Performed By: #### L 500.2500, L100.0100 ####[facility] [address] [place], [address] Neutrophils/100 WBC (Bld) 64.8 % Normal 47-[address] [facility] Comment on above: Performed By: #### L 500.2500, L100.0100 ####[facility] [address] [place], [id number] Nucleated RBC (Bld) [#/Vol] 0 10*3/uL Normal 0-[address] [facility] Comment on above: Performed By: #### L 500.2500, L100.0100 ####[facility] [address] [place], [address] Platelet mean volume (Bld) [Entitic vol] 11.4 fL Normal 6.2-12.[address] [facility] Comment on above: Performed By: #### L 500.2500, L100.0100 ####[facility] [address] [place], [address] Platelets (Bld) [#/Vol] 71 10*3/uL Low 150-[address] [facility] Comment on above: Performed By: #### L 500.2500, L100.0100 ####[facility] [address] [place], [address] RBC (Bld) [#/Vol] 3.64 10*6/uL Low 4.2-5.4 [facility] Comment on above: Performed By: #### L 500.2500, L100.0100 ####[facility] [address] [place], [address] RDW SD 59.7 fl High 35.1-43.[address] [facility] Comment on above: Performed By: #### L 500.2500, L100.0100 ####[facility] [address] [place], [address] WBC (Bld) [#/Vol] 9.4 10*3/uL Normal 4.4-11.0 [facility] Comment on above: Performed By: #### L 500.2500, L100.0100 ####[facility] [address] [place], [address] Consultation - Urologyon Consultation - Urology Normal [facility] Magnesiumon 05-14-2024 Magnesium [Mass/Vol] 1.6 mg/dL Normal 1.6-2.6 [facility] Comment on above: Performed By: #### L 501.2300, L501.5200 ####[facility] [address] [place], [address] Partial Thromboplast Timeon 05-14-2024 aPTT Coag (Bld) [Time] 39.4 s High 24.1-36.2 [facility] Comment on above: Performed By: #### L 300.4310, L300.3900 ####[facility] [address] [place], [address] Phosphoruson 05-14-2024 Phosphate [Mass/Vol] 3.5 mg/dL Normal 2.5-4.9 [facility] Comment on above: Performed By: #### L 501.2300, L501.5200 ####[facility] [address] [place], [address] Prothrombin Time w/INRon INR Coag (PPP) [Relative time] 1.5 {INR} Normal [facility] Comment on above: Performed By: #### L 300.4310, L300.3900 ####[facility] [address] [place], [address] PT Coag (PPP) [Time] 18.4 s High 11.7-14.9 [facility] Comment on above: Performed By: #### L 300.4310, L300.3900 ####[facility] [address] [place], [address] Abdomen/Pelvis W IV Cont ONL Yon 05-13-2024 Abdomen/Pelvis W IV Cont ONLY Normal [facility] Ammoniaon 05-13-2024 Ammonia (P) [Moles/Vol] 73.0 umol/L High 11-[address] [facility] Comment on above: Performed By: #### L 100.0100, L503.5510, L501.2450, L500.2500, L500.3400 ####[facility] [address] [place], [address] Basic Metabolic Profile (BMP )on 05-13-2024 BUN/CRE 15.7 RATIO Normal 10-[address] [facility] Comment on above: Performed By: #### L 100.0100, L503.5510, L501.2450, L500.2500, L500.3400 ####[facility] [address] [place], [address] CA,Total 8.7 mg/dL Normal 8.5-10.[address] [facility] Comment on above: Performed By: #### L 100.0100, L503.5510, L501.2450, L500.2500, L500.3400 ####[facility] [address] [place], [address] Chloride [Moles/Vol] 111 mmol/L High 98-107 [facility] Comment on above: Performed By: #### L 100.0100, L503.5510, L501.2450, L500.2500, L500.3400 ####[facility] [address] [place], [address] CO2 [Moles/Vol] 23.0 mmol/L Normal 21.0-32.[address] [facility] Comment on above: Performed By: #### L 100.0100, L503.5510, L501.2450, L500.2500, L500.3400 ####[facility] [address] [place], [address] Creatinine [Mass/Vol] 0.96 mg/dL Normal 0.55-1.02 [facility] Comment on above: Result Comment: The validity of the calculated GFR GFRAA in patients over70 years has not been determined. Clinical correlation isessential. Performed By: #### L 100.0100, L503.5510, L501.2450, L500.2500, L500.3400 ####[facility] [address] [place], [address] ECRCL 66.18 ml/min Normal [facility] Comment on above: Performed By: #### L 100.0100, L503.5510, L501.2450, L500.2500, L500.3400 ####[facility] [address] [place], [address] EST GFR - AA 79 mL/min Normal >[address] [facility] Comment on above: Result Comment: Afri can [place] GFR Calc Performed By: #### L 100.0100, L503.5510, L501.2450, L500.2500, L500.3400 ####[facility] [address] [place], [address] GAP 5 Normal 5-[address] [facility] Comment on above: Performed By: #### L 100.0100, L503.5510, L501.2450, L500.2500, L500.3400 ####[facility] [address] [place], [address] GFR/1.73 sq M.predicted among non-blacks MDRD (S/P/Bld) [Vol rate/Area] 66 mL/min/{1.73_m2} Normal >[address] [facility] Comment on above: Result Comment: Non- GFR Calc Performed By: #### L 100.0100, L503.5510, L501.2450, L500.2500, L500.3400 ####[facility] [address] [place], [address] Glucose [Mass/Vol] 130 mg/dL High 74-106 [facility] Comment on above: Result Comment: Fast ing Glucose result greater than or equal to 126 mg/dLsuggests DIABETES MELLITUS per A.D.A. criteria. Performed By: #### L 100.0100, L503.5510, L501.2450, L500.2500, L500.3400 ####[facility] [address] [place], [address] Potassium [Moles/Vol] 3.1 mmol/L Low 3.5-5.1 [facility] Comment on above: Performed By: #### L 100.0100, L503.5510, L501.2450, L500.2500, L500.3400 ####[facility] [address] [place], [address] Sodium [Moles/Vol] 139 mmol/L Normal 136-145 [facility] Comment on above: Performed By: #### L 100.0100, L503.5510, L501.2450, L500.2500, L500.3400 ####[facility] [address] [place], [address] Urea nitrogen [Mass/Vol] 15 mg/dL Normal 7-[address] [facility] Comment on above: Performed By: #### L 100.0100, L503.5510, L501.2450, L500.2500, L500.3400 ####[facility] [address] [place], [address] CBC W/Diff, Automatedon 04-26 Absolute Lymph 1.53 X10 3/uL Normal 0.83-4.[address] [facility] Comment on above: Performed By: #### L 100.0100, L503.5510, L501.2450, L500.2500, L500.3400 ####[facility] [address] [place], [address] Absolute Neut 4.9 X10 3/uL Normal 2.0-7.[address] [facility] Comment on above: Performed By: #### L 100.0100, L503.5510, L501.2450, L500.2500, L500.3400 ####[facility] [address] [place], [address] Basophils/100 WBC (Bld) 0.5 % Normal 0-[address] [facility] Comment on above: Performed By: #### L 100.0100, L503.5510, L501.2450, L500.2500, L500.3400 ####[facility] [address] [place], [address] Eosinophils/100 WBC (Bld) 3.6 % Normal 0-[address] [facility] Comment on above: Performed By: #### L 100.0100, L503.5510, L501.2450, L500.2500, L500.3400 ####[facility] [address] [place], [address] Erythrocyte distribution width (RBC) [Ratio] 18.6 % High 11.6-14.[address] [facility] Comment on above: Performed By: #### L 100.0100, L503.5510, L501.2450, L500.2500, L500.3400 ####[facility] [address] [place], [address] Hematocrit (Bld) [Volume fraction] 36.5 % Low 37-[address] [facility] Comment on above: Performed By: #### L 100.0100, L503.5510, L501.2450, L500.2500, L500.3400 ####[facility] [address] [place], [address] Hemoglobin (Bld) [Mass/Vol] 12.7 g/dL Normal 12.0-15.[address] [facility] Comment on above: Performed By: #### L 100.0100, L503.5510, L501.2450, L500.2500, L500.3400 ####[facility] [address] [place], [address] IG% 0.300 Normal 0.0-0.[address] [facility] Comment on above: Result Comment: IG% - Immature Granulocytes (promyelocytes, myelocytes andmetamyelocytes) > 1% indicates that a LEFT SHIFT is Present. Performed By: #### L 100.0100, L503.5510, L501.2450, L500.2500, L500.3400 ####[facility] [address] [place], [address] Lymphocytes/100 WBC (Bld) 20.7 % Normal 19-[address] [facility] Comment on above: Performed By: #### L 100.0100, L503.5510, L501.2450, L500.2500, L500.3400 ####[facility] [address] [place], [address] MCH (RBC) [Entitic mass] 31.1 pg Normal 27.0-32.[address] [facility] Comment on above: Performed By: #### L 100.0100, L503.5510, L501.2450, L500.2500, L500.3400 ####[facility] [address] [place], [address] MCHC (RBC) [Mass/Vol] 34.8 g/dL Normal 32-36 [facility] Comment on above: Performed By: #### L 100.0100, L503.5510, L501.2450, L500.2500, L500.3400 ####[facility] [address] [place], [address] MCV (RBC) [Entitic vol] 89.5 fL Normal 81-[address] [facility] Comment on above: Performed By: #### L 100.0100, L503.5510, L501.2450, L500.2500, L500.3400 ####[facility] [address] [place], [address] Monocytes/100 WBC (Bld) 8.6 % Normal 0-[address] [facility] Comment on above: Performed By: #### L 100.0100, L503.5510, L501.2450, L500.2500, L500.3400 ####[facility] [address] [place], [address] Neutrophils/100 WBC (Bld) 66.3 % Normal 47-[address] [facility] Comment on above: Performed By: #### L 100.0100, L503.5510, L501.2450, L500.2500, L500.3400 ####[facility] [address] [place], [address] Nucleated RBC (Bld) [#/Vol] 0 10*3/uL Normal 0-[address] [facility] Comment on above: Performed By: #### L 100.0100, L503.5510, L501.2450, L500.2500, L500.3400 ####[facility] [address] [place], [address] Platelet mean volume (Bld) [Entitic vol] 11.6 fL Normal 6.2-12.[address] [facility] Comment on above: Performed By: #### L 100.0100, L503.5510, L501.2450, L500.2500, L500.3400 ####[facility] [address] [place], [address] Platelets (Bld) [#/Vol] 60 10*3/uL Low 150-[address] [facility] Comment on above: Performed By: #### L 100.0100, L503.5510, L501.2450, L500.2500, L500.3400 ####[facility] [address] [place], [address] RBC (Bld) [#/Vol] 4.08 10*6/uL Low 4.2-5.4 [facility] Comment on above: Performed By: #### L 100.0100, L503.5510, L501.2450, L500.2500, L500.3400 ####[facility] [address] [place], [address] RDW SD 59.9 fl High 35.1-43.[address] [facility] Comment on above: Performed By: #### L 100.0100, L503.5510, L501.2450, L500.2500, L500.3400 ####[facility] [address] [place], [address] WBC (Bld) [#/Vol] 7.4 10*3/uL Normal 4.4-11.0 [facility] Comment on above: Performed By: #### L 100.0100, L503.5510, L501.2450, L500.2500, L500.3400 ####[facility] [address] [place], [address] Emergency Department Summary on 05-13-2024 Emergency Department Summary Normal [facility] H AND P Exam - Hospitaliston 05-13-2024 H&P Exam - Hospitalist Normal [facility] Lipaseon 05-13-2024 Lipase [Catalytic activity/Vol] 63 U/L Normal 13-[address] [facility] Comment on above: Result Comment: My jimenez note:LIPASE revised reference range effective 23.New Lipase methodology. Expected to produce lower valuesthan the previous assay method.NEW Reference Range: 13 - 75 U/L Performed By: #### L 100.0100, L503.5510, L501.2450, L500.2500, L500.3400 ####[facility] [address] [place], [address] Liver Profileon 05-13-2024 Albumin [Mass/Vol] 3.1 g/dL Low 3.2-5.0 [facility] Comment on above: Performed By: #### L 100.0100, L503.5510, L501.2450, L500.2500, L500.3400 ####[facility] [address] [place], [address] ALK P 138 U/L High 45-[address] [facility] Comment on above: Performed By: #### L 100.0100, L503.5510, L501.2450, L500.2500, L500.3400 ####[facility] [address] [place], [address] ALT [Catalytic activity/Vol] 112 U/L High 13-[address] [facility] Comment on above: Performed By: #### L 100.0100, L503.5510, L501.2450, L500.2500, L500.3400 ####[facility] [address] [place], [address] AST [Catalytic activity/Vol] 147 U/L High 15-[address] [facility] Comment on above: Performed By: #### L 100.0100, L503.5510, L501.2450, L500.2500, L500.3400 ####[facility] [address] [place], [address] Bilirubin [Mass/Vol] 2.20 mg/dL High 0.20-1.00 [facility] Comment on above: Result Comment: For patients on eltrombopag therapy, use of Dimension [place] TBIL is not recommended. Performed By: #### L 100.0100, L503.5510, L501.2450, L500.2500, L500.3400 ####[facility] [address] [place], [address] Bilirubin.direct [Mass/Vol] 1.03 mg/dL High 0.00-0.[address] [facility] Comment on above: Performed By: #### L 100.0100, L503.5510, L501.2450, L500.2500, L500.3400 ####[facility] [address] [place], [address] Globulin (S) [Mass/Vol] 4.3 g/dL High 2.2-4.[address] [facility] Comment on above: Performed By: #### L 100.0100, L503.5510, L501.2450, L500.2500, L500.3400 ####[facility] [address] [place], [address] T PROT 7.4 g/dL Normal 6.4-8.[address] [facility] Comment on above: Performed By: #### L 100.0100, L503.5510, L501.2450, L500.2500, L500.3400 ####[facility] [address] [place], [address] Urinalysis, Completeon 05-13 EPI,SQUAMOUS 0-5 SEEN Normal 5-[address] [facility] Comment on above: Order Comment: COLOR OF URINE MAY AFFECT DIPSTICK RESULTS.CLEAN CATCH Performed By: #### L 400.0001 ####[facility] [address] [place], [address] CA OX CRYSTAL 1+ /hpf Normal [facility] Comment on above: Order Comment: COLOR OF URINE MAY AFFECT DIPSTICK RESULTS.CLEAN CATCH Performed By: #### L 400.0001 ####[facility] [address] [place], [address] RBC > 100 SEEN Normal 0-[address] [facility] Comment on above: Order Comment: COLOR OF URINE MAY AFFECT DIPSTICK RESULTS.CLEAN CATCH Performed By: #### L 400.0001 ####[facility] [address] [place], [address] WBC 0-5 SEEN Normal 0-[address] [facility] Comment on above: Order Comment: COLOR OF URINE MAY AFFECT DIPSTICK RESULTS.CLEAN CATCH Performed By: #### L 400.0001 ####[facility] [address] [place], [address] BACTERIA 0 SEEN Normal None Seen [facility] Comment on above: Order Comment: COLOR OF URINE MAY AFFECT DIPSTICK RESULTS.CLEAN CATCH Performed By: #### L 400.0001 ####[facility] [address] [place], [address] Mucus Ql (Urine sed) 0 SEEN Normal [facility] Comment on above: Order Comment: COLOR OF URINE MAY AFFECT DIPSTICK RESULTS.CLEAN CATCH Performed By: #### L 400.0001 ####[facility] [address] [facility] [address] Urine Drug Screen (VISTA)on 05-13-2024 AMPHETAMINES Positive Abnormal <1000 ng/mL [facility] Comment on above: Performed By: #### L 505.5000 ####[facility] [address] [place], [address] BARBITIURATES Negative Normal < 200 ng/mL [facility] Comment on above: Performed By: #### L 505.5000 ####[facility] [address] [place], [address] BENZODIAZIPINE Negative Normal < 200 ng/mL [facility] Comment on above: Performed By: #### L 505.5000 ####[facility] [address] [place], [address] COCAINE Negative Normal < 300 ng/mL [facility] Comment on above: Performed By: #### L 505.5000 ####[facility] [address] [place], [address] ECSTACY Positive Abnormal < 500 ng/mL [facility] Comment on above: Performed By: #### L 505.5000 ####[facility] [address] [place], [address] METHADONE Negative Normal < 300 ng/mL [facility] Comment on above: Performed By: #### L 505.5000 ####[facility] [address] [place], [address] OPIATES Negative Normal < 300 ng/mL [facility] Comment on above: Performed By: #### L 505.5000 ####[facility] [address] [place], [address] PCP Negative Normal < 25 ng/mL [facility] Comment on above: Performed By: #### L 505.5000 ####[facility] [address] [place], [address] THC Positive Abnormal < 50 ng/mL [facility] Comment on above: Performed By: #### L 505.5000 ####[facility] [address] [place], [address] VISTA UDS PH [address] [facility] Comment on above: Performed By: #### L 505.5000 ####[facility] [address] [place], [address] Abdomen/Pelvis W IV Cont ONL Yon 05-11-2024 Abdomen/Pelvis W IV Cont ONLY Normal [facility] Basic Metabolic Profile (BMP )on 05-11-2024 BUN/CRE 16.8 RATIO Normal 10-[address] [facility] Comment on above: Performed By: #### L 100.0100, L501.2450, L500.3400, L500.2500 ####[facility] [address] [place], [address] CA,Total 9.2 mg/dL Normal 8.5-10.[address] [facility] Comment on above: Performed By: #### L 100.0100, L501.2450, L500.3400, L500.2500 ####[facility] [address] [place], [address] Chloride [Moles/Vol] 113 mmol/L High 98-107 [facility] Comment on above: Performed By: #### L 100.0100, L501.2450, L500.3400, L500.2500 ####[facility] [address] [place], [address] CO2 [Moles/Vol] 22.0 mmol/L Normal 21.0-32.[address] [facility] Comment on above: Performed By: #### L 100.0100, L501.2450, L500.3400, L500.2500 ####[facility] [address] [place], [address] Creatinine [Mass/Vol] 0.83 mg/dL Normal 0.55-1.02 [facility] Comment on above: Result Comment: The validity of the calculated GFR GFRAA in patients over70 years has not been determined. Clinical correlation isessential. Performed By: #### L 100.0100, L501.2450, L500.3400, L500.2500 ####[facility] [address] [place], [address] ECRCL 74.43 ml/min Normal [facility] Comment on above: Performed By: #### L 100.0100, L501.2450, L500.3400, L500.2500 ####[facility] [address] [place], [address] EST GFR - AA 93 mL/min Normal >[address] [facility] Comment on above: Result Comment: Afri can [place] GFR Calc Performed By: #### L 100.0100, L501.2450, L500.3400, L500.2500 ####[facility] [address] [place], [address] GAP 4 Low 5-[address] [facility] Comment on above: Performed By: #### L 100.0100, L501.2450, L500.3400, L500.2500 ####[facility] [address] [place], [address] GFR/1.73 sq M.predicted among non-blacks MDRD (S/P/Bld) [Vol rate/Area] 77 mL/min/{1.73_m2} Normal >[address] [facility] Comment on above: Result Comment: Non- GFR Calc Performed By: #### L 100.0100, L501.2450, L500.3400, L500.2500 ####[facility] [address] [place], [address] Glucose [Mass/Vol] 103 mg/dL Normal 74-106 [facility] Comment on above: Result Comment: Fast ing Glucose result from 100 to 125 mg/dLsuggests IMPAIRED HOMEOSTASIS per A.D.A. criteria. Performed By: #### L 100.0100, L501.2450, L500.3400, L500.2500 ####[facility] [address] [place], [address] Potassium [Moles/Vol] 3.5 mmol/L Normal 3.5-5.1 [facility] Comment on above: Performed By: #### L 100.0100, L501.2450, L500.3400, L500.2500 ####[facility] [address] [place], [address] Sodium [Moles/Vol] 139 mmol/L Normal 136-145 [facility] Comment on above: Performed By: #### L 100.0100, L501.2450, L500.3400, L500.2500 ####[facility] [address] [place], [address] Urea nitrogen [Mass/Vol] 14 mg/dL Normal 7-[address] [facility] Comment on above: Performed By: #### L 100.0100, L501.2450, L500.3400, L500.2500 ####[facility] [address] [place], [address] CBC W/Diff, Automatedon 04-26 Absolute Lymph 1.54 X10 3/uL Normal 0.83-4.[address] [facility] Comment on above: Performed By: #### L 100.0100, L501.2450, L500.3400, L500.2500 ####[facility] [id number] [place], [address] Absolute Neut 5.2 X10 3/uL Normal 2.0-7.[address] [facility] Comment on above: Performed By: #### L 100.0100, L501.2450, L500.3400, L500.2500 ####[facility] [id number] [place], [address] Basophils/100 WBC (Bld) 0.8 % Normal 0-[address] [facility] Comment on above: Performed By: #### L 100.0100, L501.2450, L500.3400, L500.2500 ####[facility] [id number] [place], [address] Eosinophils/100 WBC (Bld) 4.0 % Normal 0-[address] [facility] Comment on above: Performed By: #### L 100.0100, L501.2450, L500.3400, L500.2500 ####[facility] [id number] [place], [address] Erythrocyte distribution width (RBC) [Ratio] 18.7 % High 11.6-14.[address] [facility] Comment on above: Performed By: #### L 100.0100, L501.2450, L500.3400, L500.2500 ####[facility] [address] [place], [address] Hematocrit (Bld) [Volume fraction] 36.2 % Low 37-[address] [facility] Comment on above: Performed By: #### L 100.0100, L501.2450, L500.3400, L500.2500 ####[facility] [address] [place], [address] Hemoglobin (Bld) [Mass/Vol] 12.3 g/dL Normal 12.0-15.[address] [facility] Comment on above: Performed By: #### L 100.0100, L501.2450, L500.3400, L500.2500 ####[facility] [address] [place], [address] IG% 0.400 Normal 0.0-0.[address] [facility] Comment on above: Result Comment: IG% - Immature Granulocytes (promyelocytes, myelocytes andmetamyelocytes) > 1% indicates that a LEFT SHIFT is Present. Performed By: #### L 100.0100, L501.2450, L500.3400, L500.2500 ####[facility] [address] [place], [address] Lymphocytes/100 WBC (Bld) 19.8 % Normal 19-[address] [facility] Comment on above: Performed By: #### L 100.0100, L501.2450, L500.3400, L500.2500 ####[facility] [address] [place], [address] MCH (RBC) [Entitic mass] 30.7 pg Normal 27.0-32.[address] [facility] Comment on above: Performed By: #### L 100.0100, L501.2450, L500.3400, L500.2500 ####[facility] [address] [place], [address] MCHC (RBC) [Mass/Vol] 34.0 g/dL Normal 32-36 [facility] Comment on above: Performed By: #### L 100.0100, L501.2450, L500.3400, L500.2500 ####[facility] [address] [place], [address] MCV (RBC) [Entitic vol] 90.3 fL Normal 81-[address] [facility] Comment on above: Performed By: #### L 100.0100, L501.2450, L500.3400, L500.2500 ####[facility] [address] [place], [address] Monocytes/100 WBC (Bld) 7.5 % Normal 0-[address] [facility] Comment on above: Performed By: #### L 100.0100, L501.2450, L500.3400, L500.2500 ####[facility] [address] [place], [address] Neutrophils/100 WBC (Bld) 67.5 % Normal 47-[address] [facility] Comment on above: Performed By: #### L 100.0100, L501.2450, L500.3400, L500.2500 ####[facility] [address] [place], [address] Nucleated RBC (Bld) [#/Vol] 0 10*3/uL Normal 0-[address] [facility] Comment on above: Performed By: #### L 100.0100, L501.2450, L500.3400, L500.2500 ####[facility] [address] [place], [address] Platelet mean volume (Bld) [Entitic vol] 11.8 fL Normal 6.2-12.[address] [facility] Comment on above: Performed By: #### L 100.0100, L501.2450, L500.3400, L500.2500 ####[facility] [address] [place], [address] Platelets (Bld) [#/Vol] 69 10*3/uL Low 150-[address] [facility] Comment on above: Performed By: #### L 100.0100, L501.2450, L500.3400, L500.2500 ####[facility] [address] [place], [address] RBC (Bld) [#/Vol] 4.01 10*6/uL Low 4.2-5.4 [facility] Comment on above: Performed By: #### L 100.0100, L501.2450, L500.3400, L500.2500 ####[facility] [address] [place], [address] RDW SD 60.4 fl High 35.1-43.[address] [facility] Comment on above: Performed By: #### L 100.0100, L501.2450, L500.3400, L500.2500 ####[facility] [address] [place], [address] WBC (Bld) [#/Vol] 7.8 10*3/uL Normal 4.4-11.0 [facility] Comment on above: Performed By: #### L 100.0100, L501.2450, L500.3400, L500.2500 ####[facility] [address] [place], [address] CNPBonita [facility]20[facility] CAROLINA HIGHTOWER ([id number]) 1975 F Date Time Provider Department 05/11/24 KRISHNA LARA During your visit today, we recorded the following information about you: Krishna Lara APRN.COMMUNITY SERVICE OFFICER 05/11/2024 10:04 AM Signed Please let patient know her HIV and syphilis is negative. Her potassium is low at 3.4. I would like her to repeat this lab in 1 week. Bill Valenzuela MA 05/11/2024 10:37 AM Signed Call to pt and notified her of results below from Provider. Pt verbalized understanding. Bill Valenzuela MA Allergies As of Date: 05/11/2024 Noted Allergy Reaction ASPIRIN 06/02/2005 Comments: UNCERTAIN =CHILDHOOD BUPROPION 06/11/2019 14 - Other: See Comments CODEINE 06/02/2005 2 - Rash PREDNISONE 06/19/2019 2 - Rash WELLBUTRIN (BUPROPION HCL) 09/29/2012 14 - Other: See Comments Comments: seizures Date Reviewed: 05/11/2024 Reviewed by: Dev Thacker, RT(R) - Fully Assessed Reason for Visit: Results [95] Primary Visit Diagnosis:Hypokalemia [E87.6] Order(s):POTASSIUM [SQK1] Order #: [id number] FUTURE Prescriptions as of 05/11/2024 - iv contrast (will be provided with radiology test) CT ABD/PEL -Inject, intravenously, once for 1 dose.No IV access, insert saline lock prior to the beginning of sedation, infusion, injection of imaging exam. Discontinue saline lock post exam. If Pt. has a central line or IVAD, may access for administration according to line specific nursing protocol. Once exam is complete flush line and de-access according to line specific nursing protocol in the CT contrast administration guidelines link. - enteric contrast (will be provided with radiology test) For CT ABD/PEL W IVCON Routine order Administer, As Directed One Time Only, via Oral, Rectal, both Oral and Rectal, Enteric Tube, Stoma or Indwelling Catheter, Enteric Contrast as designated per enteric contrast guidelines - cephALEXin (KEFLEX) 500 mg capsule Take 1 capsule by mouth two times a day for 7 days. - mupirocin (BACTROBAN) 2 % ointment Apply 1 application to affected area two times a day for 7 days. - ibuprofen (MOTRIN) 600 mg tablet Take 1 tablet by mouth every 6 hours as needed for pain. - gabapentin (NEURONTIN) 100 mg capsule Take 1 capsule by mouth two times a day for 180 days. - spironolactone (ALDACTONE) 50 mg tablet Take 1 tablet by mouth two times a day. - furosemide (LASIX) 40 mg tablet Take 1 tablet by mouth once daily. - fluticasone (FLONASE) 50 mcg/actuation nasal spray Use 2 Sprays in each nostril once daily. Rinse mouth after use. - mupirocin (BACTROBAN) 2 % ointment Apply [...] 1 Patch as directed as directed. - ondansetron orally disintegrating (ZOFRAN ODT) 4 mg disintegrating tablet Take 1 tablet by mouth every 6 hours as needed for nausea/vomiting. - albuterol HFA (PROAIR HFA) 90 mcg/actuation inhaler Inhale 2 Puffs as instructed every 4 hours as needed. - pantoprazole DR (PROTONIX) 40 mg tablet Take 1 tablet by mouth twice daily before meals. Take on empty stomach, 1/2 hr before meal. 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 Lipaseon 05-11-2024 Lipase [Catalytic activity/Vol] 53 U/L Normal 13-[address] [facility] Comment on above: Result Comment: My se note:LIPASE revised reference range effective 23.New Lipase methodology. Expected to produce lower valuesthan the previous assay method.NEW Reference Range: 13 - 75 U/L Performed By: #### L 100.0100, L501.2450, L500.3400, L500.2500 ####[facility] [address] [place], [address] Liver Profileon 05-11-2024 Albumin [Mass/Vol] 2.7 g/dL Low 3.2-5.0 [facility] Comment on above: Performed By: #### L 100.0100, L501.2450, L500.3400, L500.2500 ####[facility] [address] [place], [address] ALK P 128 U/L High 45-[address] [facility] Comment on above: Performed By: #### L 100.0100, L501.2450, L500.3400, L500.2500 ####[facility] [address] [place], [address] ALT [Catalytic activity/Vol] 109 U/L High 13-[address] [facility] Comment on above: Performed By: #### L 100.0100, L501.2450, L500.3400, L500.2500 ####[facility] [address] [place], [address] AST [Catalytic activity/Vol] 137 U/L High 15-[address] [facility] Comment on above: Performed By: #### L 100.0100, L501.2450, L500.3400, L500.2500 ####[facility] [address] [place], [address] Bilirubin [Mass/Vol] 2.40 mg/dL High 0.20-1.00 [facility] Comment on above: Result Comment: For patients on eltrombopag therapy, use of Dimension [place] TBIL is not recommended. Performed By: #### L 100.0100, L501.2450, L500.3400, L500.2500 ####[facility] [address] [place], [address] Bilirubin.direct [Mass/Vol] 1.07 mg/dL High 0.00-0.[address] [facility] Comment on above: Performed By: #### L 100.0100, L501.2450, L500.3400, L500.2500 ####[facility] [address] [place], [address] Globulin (S) [Mass/Vol] 4.4 g/dL High 2.2-4.[address] [facility] Comment on above: Performed By: #### L 100.0100, L501.2450, L500.3400, L500.2500 ####[facility] [address] [place], [address] T PROT 7.1 g/dL Normal 6.4-8.[address] [facility] Comment on above: Performed By: #### L 100.0100, L501.2450, L500.3400, L500.2500 ####[facility] [address] [place], [address] Urinalysis, Completeon 05-11 CA OX CRYSTAL 1+ /hpf Normal [facility] Comment on above: Order Comment: CLEAN CATCH Performed By: #### L 400.0001 ####[facility] [address] [place], [address] RBC > 100 SEEN Normal 0-[address] [facility] Comment on above: Order Comment: CLEAN CATCH Performed By: #### L 400.0001 ####[facility] [address] [place], [address] BACTERIA 0 SEEN Normal None Seen [facility] Comment on above: Order Comment: CLEAN CATCH Performed By: #### L 400.0001 ####[facility] [address] [place], [address] EPI,SQUAMOUS 0 SEEN Normal 5-[address] [facility] Comment on above: Order Comment: CLEAN CATCH Performed By: #### L 400.0001 ####[facility] [address] [place], [address] Mucus Ql (Urine sed) 0 SEEN Normal [facility] Comment on above: Order Comment: CLEAN CATCH Performed By: #### L 400.0001 ####[facility] [address] [place], [address] WBC 0 SEEN Normal 0-[address] [facility] Comment on above: Order Comment: CLEAN CATCH Performed By: #### L 400.0001 ####[facility] [address] [place], [address] CBC W Auto Differential pane l (Bld)on 05-10-2024 Basophils (Bld) [#/Vol] 0.06 10*3/uL NINF [facility] Basophils/100 WBC (Bld) 0.7 % [facility] Differential cell count method Nom (Bld) Auto [facility] Eosinophils (Bld) [#/Vol] 0.40 10*3/uL [facility] Eosinophils/100 WBC (Bld) 4.5 % [facility] Erythrocyte distribution width (RBC) [Ratio] 18.6 % High 11.5 - 15.0 % [facility] Hematocrit (Bld) [Volume fraction] 35.3 % Low 36.0 - 46.0 % [facility] Hemoglobin (Bld) [Mass/Vol] 12.0 g/dL 11.5 - 15.5 g/dL [facility] Immature granulocytes (Bld) [#/Vol] 0.03 10*3/uL [facility] Immature granulocytes/100 WBC (Bld) 0.3 % [facility] Interpretation and review of laboratory results Abnormal [facility] Lymphocytes (Bld) [#/Vol] 1.80 10*3/uL [facility] Lymphocytes/100 WBC (Bld) 20.4 % [facility] MCH (RBC) [Entitic mass] 30.5 pg 26.0 - 34.0 pg [facility] MCHC (RBC) [Mass/Vol] 34.0 g/dL 30.5 - 36.0 g/dL [facility] MCV (RBC) [Entitic vol] 89.6 fL 80.0 - 100.0 fL [facility] Monocytes (Bld) [#/Vol] 0.90 10*3/uL High [facility] Monocytes/100 WBC (Bld) 10.2 % [facility] Neutrophils (Bld) [#/Vol] 5.64 10*3/uL [facility] Neutrophils/100 WBC (Bld) 63.9 % [facility] Nucleated RBC (Bld) [#/Vol] [facility] Nucleated RBC/100 WBC (Bld) [Ratio] 0.0 % /100 WBC [facility] Platelet mean volume (Bld) [Entitic vol] 11.0 fL 9.0 - 12.7 fL [facility] Platelets (Bld) [#/Vol] 82 10*3/uL Low [facility] Comment on above: No clot detected. RBC (Bld) [#/Vol] 3.94 10*6/uL 3.90 - 5.2 0 m/uL [facility] WBC (Bld) [#/Vol] 8.83 10*3/uL [facility] Basophils (Bld) [#/Vol] 0.06 10*3/uL Normal <0.11 [facility] Comment on above: Order Comment: Speci men Type: BLOOD SPECIMENOrdering Facility: [facility] Address: [address] [place] [address] Performed By: #### 5 7021-8 ####[facility] SPRINGSWGALIA [id number] [place] [address] [place] Basophils/100 WBC (Bld) 0.7 % Normal [facility] Comment on above: Order Comment: Speci men Type: BLOOD SPECIMENOrdering Facility: [facility] Address: [address] [place] [address] Performed By: #### 5 7021-8 ####[facility] [id number] [place] [address] [place] Differential cell count method Nom (Bld) Auto Normal [facility] Comment on above: Order Comment: Speci men Type: BLOOD SPECIMENOrdering Facility: [facility] Address: [address] [place] [address] Performed By: #### 5 7021-8 ####[facility] [id number] [place] [address] [place] Eosinophils (Bld) [#/Vol] 0.40 10*3/uL Normal <0.46 [facility] Comment on above: Order Comment: Speci men Type: BLOOD SPECIMENOrdering Facility: [facility] Address: [address] [place] [address] Performed By: #### 5 7021-8 ####[facility] [id number] [place] [address] [place] Eosinophils/100 WBC (Bld) 4.5 % Normal [facility] Comment on above: Order Comment: Speci men Type: BLOOD SPECIMENOrdering Facility: [facility] Address: [address] [place] [address] Performed By: #### 5 7021-8 ####[facility]ITALNCLIA [id number] [place] [address] [place] Erythrocyte distribution width (RBC) [Ratio] 18.6 % High 11.5-15.0 [facility] Comment on above: Order Comment: Speci men Type: BLOOD SPECIMENOrdering Facility: [facility] Address: [address] [place] [address] Performed By: #### 5 7021-8 ####[facility] [id number] [place] [address] [place] Hematocrit (Bld) [Volume fraction] 35.3 % Low 36.0-46.0 [facility] Comment on above: Order Comment: Speci men Type: BLOOD SPECIMENOrdering Facility: [facility] Address: [address] [place] [address] Performed By: #### 5 7021-8 ####[facility] [id number] [place] [address] [place] Hemoglobin (Bld) [Mass/Vol] 12.0 g/dL Normal 11.5-15.5 [facility] Comment on above: Order Comment: Speci men Type: BLOOD SPECIMENOrdering Facility: [facility] Address: [address] [place] [address] Performed By: #### 5 7021-8 ####[facility] [id number] [place] [address] [place] Immature granulocytes (Bld) [#/Vol] 0.03 10*3/uL Normal <0.10 [facility] Comment on above: Order Comment: Speci men Type: BLOOD SPECIMENOrdering Facility: [facility] Address: [address] [place] [address] Performed By: #### 5 7021-8 ####[facility] [id number] [place] [address] [place] Immature granulocytes/100 WBC (Bld) 0.3 % Normal [facility] Comment on above: Order Comment: Speci men Type: BLOOD SPECIMENOrdering Facility: [facility] Address: [address] [place] [address] Performed By: #### 5 7021-8 ####[facility] [id number] [place] [address] [place] Lymphocytes (Bld) [#/Vol] 1.80 10*3/uL Normal 1.00-4.00 [facility] Comment on above: Order Comment: Speci men Type: BLOOD SPECIMENOrdering Facility: [facility] Address: [address] [place] [address] Performed By: #### 5 7021-8 ####[facility] [id number] [place] [address] [place] Lymphocytes/100 WBC (Bld) 20.4 % Normal [facility] Comment on above: Order Comment: Speci men Type: BLOOD SPECIMENOrdering Facility: [facility] Address: [address] [place] [address] Performed By: #### 5 7021-8 ####[facility]ITALNCLI [id number] [place] [address] [place] MCH (RBC) [Entitic mass] 30.5 pg Normal 26.0-34.0 [facility] Comment on above: Order Comment: Speci men Type: BLOOD SPECIMENOrdering Facility: [facility] Address: [address] [place] [address] Performed By: #### 5 7021-8 ####[facility]ITALNCLI [id number] [place] [address] [place] MCHC (RBC) [Mass/Vol] 34.0 g/dL Normal 30.5-36.0 [facility] Comment on above: Order Comment: Speci men Type: BLOOD SPECIMENOrdering Facility: [facility] Address: [address] [place] [address] Performed By: #### 5 7021-8 ####[facility]ITALNCLI [id number] [place] [address] [place] MCV (RBC) [Entitic vol] 89.6 fL Normal 80.0-100.0 [facility] Comment on above: Order Comment: Speci men Type: BLOOD SPECIMENOrdering Facility: [facility] Address: [address] [place] [address] Performed By: #### 5 7021-8 ####[facility] [id number] [place] [address] [place] Monocytes (Bld) [#/Vol] 0.90 10*3/uL High <0.87 [facility] Comment on above: Order Comment: Speci men Type: BLOOD SPECIMENOrdering Facility: [facility] Address: [address] [place] [address] Performed By: #### 5 7021-8 ####[facility]ITALNCA [id number] [place] [address] [place] Monocytes/100 WBC (Bld) 10.2 % Normal [facility] Comment on above: Order Comment: Speci men Type: BLOOD SPECIMENOrdering Facility: [facility] Address: [address] [place] [address] Performed By: #### 5 7021-8 ####[facility]ITALNCLIA [id number] [place] [address] [place] Neutrophils (Bld) [#/Vol] 5.64 10*3/uL Normal 1.45-7.50 [facility] Comment on above: Order Comment: Speci men Type: BLOOD SPECIMENOrdering Facility: [facility] Address: [address] [place] [address] Performed By: #### 5 7021-8 ####[facility] EMILYWTAYLORLIA [id number] [place] [address] [place] Neutrophils/100 WBC (Bld) 63.9 % Normal [facility] Comment on above: Order Comment: Speci men Type: BLOOD SPECIMENOrdering Facility: [facility] Address: [address] [place] [address]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 Provider Department 05/02/24 DACIA ACOSTA During your visit today, we recorded the following information about you: Jessica Cox LPN 05/02/2024 8:48 AM Signed Ruthy calling from [facility], pt was incarcerated AND now does not have her medications. She was [facility] by [facility] but if they do not they are asking if they can fill her meds early? It will 7 days early AND will include gabapentin. Please advise. GERTRUDE Lewis Beth, LPN 05/02/2024 1:44 PM Signed Ruthy from [facility] calling to check status of note. [facility]. Asking if could refill her Gabapentin rx one week early? Patient has a ride to [facility] rx this afternoon. Sending note to REGULATORY AFFAIRS CONSULTANT to review. Please advise Tresa Sandoval APRN.DEEPIKA 05/02/2024 2:22 PM Signed The following approved medication requests have been transmitted electronically. Requested Prescriptions Signed Prescriptions Disp Refills gabapentin (NEURONTIN) 100 mg capsule 60 capsule 5 Sig: Take 1 capsule by mouth two times a day for 180 days. Authorizing Provider: TRESA SANDOVAL APRN.Symone Nunez LPN 05/02/2024 2:31 PM Signed Phoned [place] [facility] ans spoke to Ruthy, darell rx sent to pharmacy for the Gabapentin. Allergies As of Date: 05/02/2024 Noted Allergy Reaction ASPIRIN 06/02/2005 Comments: UNCERTAIN =CHILDHOOD BUPROPION 06/11/2019 14 - Other: See Comments CODEINE 06/02/2005 2 - Rash PREDNISONE 06/19/2019 2 - Rash WELLBUTRIN (BUPROPION HCL) 09/29/2012 14 - Other: See Comments Comments: seizures Date Reviewed: 04/20/2024 Reviewed by: Ne Valles LPN - Fully Assessed Reason for Visit: Medication Question [1738] Visit Diagnosis:Low back pain, unspecified back pain laterality, unspecified chronicity, unspecified whether sciatica present [M54.50] Order(s):gabapentin (NEURONTIN) 100 mg capsuleTake 1 capsule by mouth two times a day for 180 days.Disp: 60 capsuleRfl: 5 Prescriptions as of 05/02/2024 - gabapentin (NEURONTIN) 100 mg capsule Take 1 capsule by mouth two times a day for 180 days. - spironolactone (ALDACTONE) 50 mg tablet Take 1 tablet by mouth two times a day. - furosemide (LASIX) 40 mg tablet Take 1 tablet by mouth once daily. - fluticasone (FLONASE) 50 mcg/actuation nasal spray Use 2 Sprays in each nostril once daily. Rinse mouth after use. - ibuprofen (MOTRIN) 600 mg tablet Take [...] 1 Patch as directed as directed. - ondansetron orally disintegrating (ZOFRAN ODT) 4 mg disintegrating tablet Take 1 tablet by mouth every 6 hours as needed for nausea/vomiting. - albuterol HFA (PROAIR HFA) 90 mcg/actuation inhaler Inhale 2 Puffs as instructed every 4 hours as needed. - pantoprazole DR (PROTONIX) 40 mg tablet Take 1 tablet by mouth twice daily before meals. Take on empty stomach, 1/2 hr before meal. - lactulose (DUPHALAC, CONSTULOSE) 10 gram/15 mL solution Meds Comments as of 05/15/2022: Pt reports she took last dose of doxycycline this morning 05/15/2022 Problem List As Of Date 05/02/2024 Noted Resolved Major depression [F32.9] 04/03/2007 LUMBAGO [...] with ascites (HCC) (HCC) [K*11/19/2023 Severe sepsis ([facility]) [A41.9, R65.20] 11/19/2023 Chronic anemia [D64.9] 11/19/2023 Thrombocytopenia ([facility]) [D69.6] 11/19/2023 Nicotine use disorder, F17.2 [F17.200] 11/20/2023 Prescriptions ordered this encounter Disp Refills Start End GABAPENTIN 100 MG CAPSULE 60 c* 5 05/02/2024 10/29/2024 Route: ORAL Sig: Take 1 capsule by mouth two times a day for 180 days. Medications Discontinued During This Encounter Prescriptions - gabapentin (NEURONTIN) 100 mg capsule (Discontinued) Take 1 capsule by mouth two times a day for 180 days. (more content not included)... Normal [facility] CNPNon 04-27-2024 CNPN Telephone (YOJANA) CAROLINA HIGHTOWER ([id number]) 1975 F Date Time Provider Department 04/27/24 FRANKY CROCKER During your visit today, we recorded the following information about you: Kaylin Dominguez 04/27/2024 11:52 AM Signed Lvm for patient to return the call. Please schedule new pt with either Josue or Steven. Not urgent Yessenia Gupta 05/01/2024 9:14 AM Signed Scheduled with patient. Allergies As of Date: 04/27/2024 Noted Allergy Reaction ASPIRIN 06/02/2005 Comments: UNCERTAIN =CHILDHOOD BUPROPION 06/11/2019 14 - Other: See Comments CODEINE 06/02/2005 2 - Rash PREDNISONE 06/19/2019 2 - Rash WELLBUTRIN (BUPROPION HCL) 09/29/2012 14 - Other: See Comments Comments: seizures Date Reviewed: 04/20/2024 Reviewed by: Ne Valles LPN - Fully Assessed Prescriptions as of 05/01/2024 - spironolactone (ALDACTONE) 50 mg tablet Take 1 tablet by mouth two times a day. - furosemide (LASIX) 40 mg tablet Take 1 tablet by mouth once daily. - fluticasone (FLONASE) 50 mcg/actuation nasal spray Use 2 Sprays in each nostril once daily. Rinse mouth after use. - ibuprofen (MOTRIN) 600 mg tablet Take [...] times a day for 180 days. - nicotine (NICODERM) 21 mg/24 hr Apply 1 Patch as directed as directed. - ondansetron orally disintegrating (ZOFRAN ODT) 4 mg disintegrating tablet Take 1 tablet by mouth every 6 hours as needed for nausea/vomiting. - albuterol HFA (PROAIR HFA) 90 mcg/actuation inhaler Inhale 2 Puffs as instructed every 4 hours as needed. - pantoprazole DR (PROTONIX) 40 mg tablet Take 1 tablet by mouth twice daily before meals. Take on empty stomach, 1/2 hr before meal. - lactulose (DUPHALAC, CONSTULOSE) 10 gram/15 mL solution Meds Comments as of 05/15/2022: Pt reports she took last dose of doxycycline this morning 05/15/2022 Problem List As Of Date 04/27/2024 Noted Resolved Major depression [F32.9] 04/03/2007 LUMBAGO [...] disorder, F17.2 [F17.200] 11/20/2023 Encounter Status:Closed by SAMMIE JOHNS on 05/01/24 Normal [facility] Urine Cultureon 04-27-[address] [facility] Comment on above: Performed By: #### M 100.2200 ####[facility] [address] [place], [address] Comprehensive Metabolic Prof ilon 04-24-2024 Albumin [Mass/Vol] 3.0 g/dL Low 3.2-5.0 [facility] Comment on above: Performed By: #### L 500.4799 ####[facility] [address] [place], [address] Albumin/Globulin [Mass ratio] 0.7 {ratio} Low 0.9-2.[address] [facility] Comment on above: Performed By: #### L 500.4051 ####[facility] [address] [place], [address] ALK P 134 U/L High 45-[address] [facility] Comment on above: Performed By: #### L 500.4053 ####[facility] [address] [place], [address] ALT [Catalytic activity/Vol] 114 U/L High 13-[address] [facility] Comment on above: Performed By: #### L 500.4050 ####[facility] [address] [place], [address] AST [Catalytic activity/Vol] 180 U/L High 15-[address] [facility] Comment on above: Performed By: #### L 500.4050 ####[facility] [address] [place], [address] Bilirubin [Mass/Vol] 2.80 mg/dL High 0.20-1.00 [facility] Comment on above: Result Comment: For patients on eltrombopag therapy, use of Dimension [place] TBIL is not recommended. Performed By: #### L 500.4050 ####[facility] [address] [place], [address] BUN/CRE 13.3 RATIO Normal 10-[address] [facility] Comment on above: Performed By: #### L 500.4050 ####[facility] [address] [place], [address] CA,Total 9.0 mg/dL Normal 8.5-10.[address] [facility] Comment on above: Performed By: #### L 500.4050 ####[facility] [address] [place], [address] Chloride [Moles/Vol] 110 mmol/L High 98-107 [facility] Comment on above: Performed By: #### L 500.4050 ####[facility] [address] [place], [address] CO2 [Moles/Vol] 23.0 mmol/L Normal 21.0-32.[address] [facility] Comment on above: Performed By: #### L 500.4050 ####[facility] [address] [place], [address] Creatinine [Mass/Vol] 1.13 mg/dL High 0.55-1.02 [facility] Comment on above: Result Comment: The validity of the calculated GFR GFRAA in patients over70 years has not been determined. Clinical correlation isessential. Performed By: #### L 500.4050 ####[facility] [address] [place], [address] ECRCL 54.48 ml/min Normal [facility] Comment on above: Performed By: #### L 500.4050 ####[facility] [address] [place], [address] EST GFR - AA 65 mL/min Normal >[address] [facility] Comment on above: Result Comment: Afri can [place] GFR Calc Performed By: #### L 500.4050 ####[facility] [address] [place], [address] GAP 7 Normal 5-[address] [facility] Comment on above: Performed By: #### L 500.4050 ####[facility] [address] [place], [address] GFR/1.73 sq M.predicted among non-blacks MDRD (S/P/Bld) [Vol rate/Area] 54 mL/min/{1.73_m2} Low >[address] [facility] Comment on above: Result Comment: Non- GFR Calc Performed By: #### L 500.4050 ####[facility] [address] [place], [address] Globulin (S) [Mass/Vol] 4.5 g/dL High 2.2-4.[address] [facility] Comment on above: Performed By: #### L 500.4050 ####[facility] [address] [place], [address] Glucose [Mass/Vol] 98 mg/dL Normal 74-106 [facility] Comment on above: Performed By: #### L 500.4050 ####[facility] [address] [place], [address] Potassium [Moles/Vol] 3.1 mmol/L Low 3.5-5.1 [facility] Comment on above: Performed By: #### L 500.4050 ####[facility] [address] [place], [address] Sodium [Moles/Vol] 140 mmol/L Normal 136-145 [facility] Comment on above: Performed By: #### L 500.4050 ####[facility] [address] [place], [address] T PROT 7.5 g/dL Normal 6.4-8.[address] [facility] Comment on above: Performed By: #### L 500.4050 ####[facility] [address] [place], [address] Urea nitrogen [Mass/Vol] 15 mg/dL Normal 7-[address] [facility] Comment on above: Performed By: #### L 500.4050 ####[facility] [address] [place], [address] Emergency Department Summary on 04-24-2024 Emergency Department Summary Normal [facility] Urinalysis, Completeon 04-24 CAST,HYALINE 0 SEEN Normal 0-[address] [facility] Comment on above: Order Comment: CLEAN CATCH Performed By: #### L 400.0001 ####[facility] [address] [place], [address] EPI,SQUAMOUS 0-5 SEEN Normal 5-[address] [facility] Comment on above: Order Comment: CLEAN CATCH Performed By: #### L 400.0001 ####[facility] [address] [place], [address] Mucus Ql (Urine sed) 1+ /hpf Normal [facility] Comment on above: Order Comment: CLEAN CATCH Performed By: #### L 400.0001 ####[facility] [address] [place], [address] RBC 50-100 SEEN Normal 0-[address] [facility] Comment on above: Order Comment: CLEAN CATCH Performed By: #### L 400.0001 ####[facility] [address] [place], [place], [id number] WBC >100 SEEN Normal 0-[address] [facility] Comment on above: Order Comment: CLEAN CATCH Performed By: #### L 400.0001 ####[facility] [address] [place], [place], [address] YEAST 3+ /hpf Normal None Seen [facility] Comment on above: Order Comment: CLEAN CATCH Performed By: #### L 400.0001 ####[facility] [address] [place], [place], [address] BACTERIA 2+ /hpf Normal None Seen [facility] Comment on above: Order Comment: CLEAN CATCH Performed By: #### L 400.0001 ####[facility] [address] [place], [place], [address] CNOVon 04-20-2024 CNOV Office Visit (FAMPWS ) CAROLINA HIGHTOWER ([id number]) 1975 F Date Time Provider Department 04/20/24 2:00 PM MERVIN MATTHEWS FAMPWS During your visit today, we recorded the following information about you: Pulse Respiration Blood pressure Weight 66/minute 16/minute 110/80 71.7 kg Mervin Matthews APRN.CNP 04/20/2024 2:13 PM Signed Transitional Care Management TCM Eligibility Documentation The following information was gathered during patient outreach 04/17/2024 Date of Outreach: Outreach Attempt 1: Contact Made Date of Discharge 04/13/2024 Provider Documentation Carolina Hightower is a 48 year old female here today for a follow up from recent hospitalization. I have reviewed the patient's hospital course including discharge summary, discharge medications , follow up needs, labs (notable for see below), and CT with the patient and any family members present at today's visit. HPI Patient is here for hospital follow-up. Patient went to [facility] on April 11 for flank pain. Diagnosed with acute cystitis without hematuria. Labs obtained in the emergency room showed a normal white blood cell count, hemoglobin 11.1, elevated bilirubin 2.1, AST 159, ALT 107, alkaline phosphate level 131. UA showed over 100 white blood cells, [address] of the abdomen pelvis showed mild right hydronephrosis and hydroureter extending to the distal neurovascular junction without evidence of stone. There was a 9 mm nonobstructing stone seen in the right kidney. There was questionable evidence for recently passed kidney stone. Cirrhotic liver with large amount of ascites, splenomegaly was noted. She was admitted to the nursing floor, placed on IV antibiotics. Scheduled for paracentesis but upon ultrasound scanning there was not enough fluid to remove with paracentesis. She follows with Dr. Porras with gastroenterology as she has received paracentesis in the past. She was discharged in stable condition on April 13. States that she was discharged with an antibiotic but never received it at the pharmacy. Denies any dysuria at this time. Today, she is doing better. She denies any ongoing pain at this time. She is requesting something to assist with sleep and also something to help with allergies. Requesting Ambien today. Admits that the [facility] gave her trazodone last month. 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 PHYSICAL EXAMINATION BP 110/80 Pulse 66 Resp 16 Wt 71.7 kg (158 lb) LMP 11/20/2020 (Approximate) SpO2 98% BMI 28.90 kg/m? GENERAL: well appearing, alert, in no acute distress HEART: regular rate and rhythm. No murmur, rubs or gallops. LUNGS: clear to auscultation, no wheezing, rhonchi, or crackles ABDOMEN: bowel sounds normal and distended EXTREMITIES: no lower extremity edema. No skin discoloration. ASSESSMENT/PLAN: 1. Kidney stone - ICD9: 592.0, ICD10: N20.0 (primary diagnosis) -Appears that she has passed 1. She also has a nonobstructing and there kidney. She understands if she were to get increased flank pain, nausea, she would need to go the emergency room. 2. Acute cystitis without hematuria - ICD9: 595.0, ICD10: N30.00 -Cefdinir sent. Follow-up with symptoms return. 3. Cirrhosis of liver with ascites, unspecified hepatic cirrhosis type (HCC) (HCC) - ICD9: 571.5, ICD10: K74.60, R18.8 -Continue with plan follow-up in May with Dr. Porras. 4. Thrombocytopenia (HCC) - ICD9: 287.5, ICD10: D69.6 -Continue with plan follow-up with Dr. Porras in May. 5. Seasonal allergic rhinitis due to pollen - ICD9: 477.0, ICD10: J30.1 -Prior success with Flonase, sent. - FLUTICASONE PROPIONATE 50 MCG/ACTUATION NASAL SPRAY,SUSPENSION Mervin Matthews APRN.Mervin White APRN.CNP 04/20/2024 2:03 PM Signed Cefdinir twice daily for 7 days. Allergies As of Date: 04/20/2024 Noted Allergy Reaction ASPIRIN 06/02/2005 Comments: UNCERTAIN =CHILDHOOD BUPROPION 06/11/2019 14 - Other: See Comments CODEINE 06/02/2005 2 - Rash PREDNISONE 06/19/2019 2 - Rash WELLBUTRIN (BUPROPION HCL) 09/29/2012 14 - Other: See Comments Comments: seizures Date Reviewed: 04/20/2024 Reviewed by: Ne Valles LPN - Fully Assessed Reason for Visit: Transition Of Care [1148] Cmt: [facility] Primary Visit Diagnosis:Kidney stone [N20.0] Other Visit Diagnoses:Acute cystitis without hematuria [N30.00] Cirrhosis of liver with ascites, unspecified hepatic cirrhosis type (HCC) (HCC) [K74.60, R18.8] Thrombocytopenia (HCC) [D69.6] Seasonal allergic rhinitis due to pollen [J30.1] Order(s):spironolactone (ALDACTONE) 50 mg tabletTake 1 tablet by mouth two times a day.Disp: 60 tabletRfl: 5 furosemide (LASIX) 40 mg tabletTake 1 tablet by mouth once daily.Disp: 30 tabletRfl: 5 cefdinir (OMNICEF) 300 mg capsuleTake 1 capsule by mouth two t (more content not included)... Normal [facility] AFP, Tumor Markeron 04-16-20 AFP TUMOR DACIA 11.9 ng/mL High 0.0-6.[address] [facility] Comment on above: Result Comment: [employer] Electrochemiluminescence Immunoassay(ECLIA)Values obtained with different assay methods or kits cannotbe used interchangeably. Results cannot be interpreted asabsolute evidence of the presence or absence of malignantdisease.This test is not interpretable in females.Performed at: [facility] [address] [id number] Director: Tee Reyna PhD, Phone: [phone] Performed By: #### L 3100.3425, L3300.0700, L504.2610, L3410.2350 ####[facility] [address] [place], [address] Celiac AB,Comprehensiveon ANTIGLIADIN IGA 4 units Normal 0-[address] [facility] Comment on above: Result Comment: Nega tive 0 - 19 Weak Positive 20 - 30 Moderate to Strong Positive >30 Performed By: #### L 3100.3425, L3300.0700, L504.2610, L3410.2350 ####[facility] [address] [place], [address] ANTIGLIADIN IGG 2 units Normal 0-[address] [facility] Comment on above: Result Comment: Nega tive 0 - 19 Weak Positive 20 - 30 Moderate to Strong Positive >30 Performed By: #### L 3100.3425, L3300.0700, L504.2610, L3410.2350 ####[facility] [address] [place], [place], [id number] ENDOMYSIAL IGA Negative Normal Negative [facility] Comment on above: Performed By: #### L 3100.3425, L3300.0700, L504.2610, L3410.2350 ####[facility] [address] [place], [address] tTG IGA <2 Normal 0-[address] [facility] Comment on above: Result Comment: Nega tive 0 - 3 Weak Positive 4 - 10 Positive >10 Tissue Transglutaminase (tTG) has been identified as the endomysial antigen. Studies have demonstr- ated that endomysial IgA antibodies have over 99% specificity for gluten sensitive enteropathy. Performed By: #### L 3100.3425, L3300.0700, L504.2610, L3410.2350 ####[facility] [address] [place], [address] tTG IGG 3 U/mL Normal 0-[address] [facility] Comment on above: Result Comment: Nega tive 0 - 5 Weak Positive 6 - 9 Positive >9 Performed By: #### L 3100.3425, L3300.0700, L504.2610, L3410.2350 ####[facility] [address] [place], [address] GIO + Protein Elect, Serumon 04-16-2024 Albumin [Mass/Vol] 3.0 g/dL Normal 2.9-4.4 [facility] Comment on above: Performed By: #### L 3100.3425, L3300.0700, L504.2610, L3410.2350 ####[facility] [address] [place], [address] Albumin/Globulin [Mass ratio] 0.9 {ratio} Normal 0.7-1.[address] [facility] Comment on above: Performed By: #### L 3100.3425, L3300.0700, L504.2610, L3410.2350 ####[facility] [address] [place], [address] ZQHTO-5-RCYU 0.3 g/dL Normal 0.0-0.[address] [facility] Comment on above: Performed By: #### L 3100.3425, L3300.0700, L504.2610, L3410.2350 ####[facility] [address] [place], [address] FJEEI-0-CYJE 0.4 g/dL Normal 0.4-1.[address] [facility] Comment on above: Performed By: #### L 3100.3425, L3300.0700, L504.2610, L3410.2350 ####[facility] [address] [place], [address] BETA GLOBULIN 0.7 g/dL Normal 0.7-1.[address] [facility] Comment on above: Performed By: #### L 3100.3425, L3300.0700, L504.2610, L3410.2350 ####[facility] [address] [place], [address] GAMMA GLOBULIN 2.3 g/dL High 0.4-1.[address] [facility] Comment on above: Performed By: #### L 3100.3425, L3300.0700, L504.2610, L3410.2350 ####[facility] [address] [place], [address] Globulin (S) [Mass/Vol] 3.6 g/dL Normal 2.2-3.[address] [facility] Comment on above: Performed By: #### L 3100.3425, L3300.0700, L504.2610, L3410.2350 ####[facility] [address] [place], [address] GIO RESULT,S Comment Normal . [facility] Comment on above: Result Comment: No m onoclonality detected. Performed By: #### L 3100.3425, L3300.0700, L504.2610, L3410.2350 ####[facility] [address] [place], [address] IMMUNOGLOB A QN 365 mg/dL High 87-[address] [facility] Comment on above: Performed By: #### L 3100.3425, L3300.0700, L504.2610, L3410.2350 ####[facility] [address] [place], [address] IMMUNOGLOB G QN 2324 mg/dL High 586-[address] [facility] Comment on above: Performed By: #### L 3100.3425, L3300.0700, L504.2610, L3410.2350 ####[facility] [address] [place], [address] IMMUNOGLOB M QN 172 mg/dL Normal 26-[address] [facility] Comment on above: Performed By: #### L 3100.3425, L3300.0700, L504.2610, L3410.2350 ####[facility] [address] [place], [address] M-Bc Not Observed Normal Not Observed [facility] Comment on above: Performed By: #### L 3100.3425, L3300.0700, L504.2610, L3410.2350 ####[facility] [address] [place], [address] NOTE: Comment Normal . [facility] Comment on above: Result Comment: Prot ein electrophoresis scan will follow via computer,mail, or vocational rehabilitation supervisor delivery. Performed By: #### L 3100.3425, L3300.0700, L504.2610, L3410.2350 ####[facility] [address] [place], [address] Protein [Mass/Vol] 6.6 g/dL Normal 6.0-8.5 [facility] Comment on above: Performed By: #### L 3100.3425, L3300.0700, L504.2610, L3410.2350 ####[facility] [address] [place], [address] Discharge Instructionon 03-26 Discharge Instruction Normal [facility] LDHon 04-13-2024 LDH 249 U/L High 84-[address] [facility] Comment on above: Performed By: #### L 3100.3425, L3300.0700, L504.2610, L3410.2350 ####[facility] [address] [place], [address] Alcohol, Blood (Medical)-Ser umon 04-12-2024 SERUM ETOH < 3.[address] [facility] Comment on above: Result Comment: The serum:whole blood ethanol ratio is approximately 1.14and varies slightly with hematocrit.Medical Alcohol reference interval and critical value innon-tolerant individuals; 50 - 100 Impairment 100 Intoxication 100 - 250 Severe Poisoning 250 - 400 Deep/possible fatal coma Performed By: #### B TS, L505.5000, L501.9100 ####[facility] [address] [place], [address] CBC W/Diff, Automatedon 03-26 Absolute Lymph 1.41 X10 3/uL Normal 0.83-4.[address] [facility] Comment on above: Performed By: #### L 501.5200, L500.4050, L501.2300, L100.0100, L501.9520 ####[facility] [address] [place], [address] Absolute Neut 3.1 X10 3/uL Normal 2.0-7.[address] [facility] Comment on above: Performed By: #### L 501.5200, L500.4050, L501.2300, L100.0100, L501.9520 ####[facility] [address] [place], [address] Basophils/100 WBC (Bld) 0.8 % Normal 0-[address] [facility] Comment on above: Performed By: #### L 501.5200, L500.4050, L501.2300, L100.0100, L501.9520 ####[facility] [address] [place], [address] Eosinophils/100 WBC (Bld) 4.2 % Normal 0-[address] [facility] Comment on above: Performed By: #### L 501.5200, L500.4050, L501.2300, L100.0100, L501.9520 ####[facility] [address] [place], [address] Erythrocyte distribution width (RBC) [Ratio] 18.2 % High 11.6-14.[address] [facility] Comment on above: Performed By: #### L 501.5200, L500.4050, L501.2300, L100.0100, L501.9520 ####[facility] [address] [place], [address] Hematocrit (Bld) [Volume fraction] 30.8 % Low 37-[address] [facility] Comment on above: Performed By: #### L 501.5200, L500.4050, L501.2300, L100.0100, L501.9520 ####[facility] [address] [place], [address] Hemoglobin (Bld) [Mass/Vol] 10.3 g/dL Low 12.0-15.[address] [facility] Comment on above: Performed By: #### L 501.5200, L500.4050, L501.2300, L100.0100, L501.9520 ####[facility] [address] [place], [address] IG% 0.400 Normal 0.0-0.[address] [facility] Comment on above: Result Comment: IG% - Immature Granulocytes (promyelocytes, myelocytes andmetamyelocytes) > 1% indicates that a LEFT SHIFT is Present. Performed By: #### L 501.5200, L500.4050, L501.2300, L100.0100, L501.9520 ####[facility] [address] [place], [address] Lymphocytes/100 WBC (Bld) 26.7 % Normal 19-[address] [facility] Comment on above: Performed By: #### L 501.5200, L500.4050, L501.2300, L100.0100, L501.9520 ####[facility] [address] [place], [address] MCH (RBC) [Entitic mass] 29.4 pg Normal 27.0-32.[address] [facility] Comment on above: Performed By: #### L 501.5200, L500.4050, L501.2300, L100.0100, L501.9520 ####[facility] [address] [place], [address] MCHC (RBC) [Mass/Vol] 33.4 g/dL Normal 32-36 [facility] Comment on above: Performed By: #### L 501.5200, L500.4050, L501.2300, L100.0100, L501.9520 ####[facility] [address] [place], [address] MCV (RBC) [Entitic vol] 88.0 fL Normal 81-[address] [facility] Comment on above: Performed By: #### L 501.5200, L500.4050, L501.2300, L100.0100, L501.9520 ####[facility] [address] [place], [address] Monocytes/100 WBC (Bld) 9.6 % Normal 0-[address] [facility] Comment on above: Performed By: #### L 501.5200, L500.4050, L501.2300, L100.0100, L501.9520 ####[facility] [address] [place], [address] Neutrophils/100 WBC (Bld) 58.3 % Normal 47-[address] [facility] Comment on above: Performed By: #### L 501.5200, L500.4050, L501.2300, L100.0100, L501.9520 ####[facility] [address] [place], [address] Nucleated RBC (Bld) [#/Vol] 0 10*3/uL Normal 0-[address] [facility] Comment on above: Performed By: #### L 501.5200, L500.4050, L501.2300, L100.0100, L501.9520 ####[facility] [address] [place], [address] Platelet mean volume (Bld) [Entitic vol] 11.1 fL Normal 6.2-12.[address] [facility] Comment on above: Performed By: #### L 501.5200, L500.4050, L501.2300, L100.0100, L501.9520 ####[facility] [address] [place], [address] Platelets (Bld) [#/Vol] 56 10*3/uL Low 150-[address] [facility] Comment on above: Performed By: #### L 501.5200, L500.4050, L501.2300, L100.0100, L501.9520 ####[facility] [address] [place], [address] RBC (Bld) [#/Vol] 3.50 10*6/uL Low 4.2-5.4 [facility] Comment on above: Performed By: #### L 501.5200, L500.4050, L501.2300, L100.0100, L501.9520 ####[facility] [address] [place], [address] RDW SD 58.2 fl High 35.1-43.[address] [facility] Comment on above: Performed By: #### L 501.5200, L500.4050, L501.2300, L100.0100, L501.9520 ####[facility] [address] [place], [address] WBC (Bld) [#/Vol] 5.3 10*3/uL Normal 4.4-11.0 [facility] Comment on above: Performed By: #### L 501.5200, L500.4050, L501.2300, L100.0100, L501.9520 ####[facility] [address] [place], [address] Comprehensive Metabolic Prof [facility] 04-12-2024 Albumin [Mass/Vol] 2.5 g/dL Low 3.2-5.0 [facility] Comment on above: Performed By: #### L 501.5200, L500.4050, L501.2300, L100.0100, L501.9520 ####[facility] [address] [place], [address] Albumin/Globulin [Mass ratio] 0.7 {ratio} Low 0.9-2.[address] [facility] Comment on above: Performed By: #### L 501.5200, L500.4050, L501.2300, L100.0100, L501.9520 ####[facility] [address] [place], [address] ALK P 116 U/L Normal 45-[address] [facility] Comment on above: Performed By: #### L 501.5200, L500.4050, L501.2300, L100.0100, L501.9520 ####[facility] [address] [place], [address] ALT [Catalytic activity/Vol] 83 U/L High 13-[address] [facility] Comment on above: Performed By: #### L 501.5200, L500.4050, L501.2300, L100.0100, L501.9520 ####[facility] [address] [place], [address] AST [Catalytic activity/Vol] 125 U/L High 15-[address] [facility] Comment on above: Performed By: #### L 501.5200, L500.4050, L501.2300, L100.0100, L501.9520 ####[facility] [address] [place], [address] Bilirubin [Mass/Vol] 1.50 mg/dL High 0.20-1.00 [facility] Comment on above: Result Comment: For patients on eltrombopag therapy, use of Dimension [place] TBIL is not recommended. Performed By: #### L 501.5200, L500.4050, L501.2300, L100.0100, L501.9520 ####[facility] [address] [place], [address] BUN/CRE 13.9 RATIO Normal 10-[address] [facility] Comment on above: Performed By: #### L 501.5200, L500.4050, L501.2300, L100.0100, L501.9520 ####[facility] [address] [place], [address] CA,Total 8.6 mg/dL Normal 8.5-10.[address] [facility] Comment on above: Performed By: #### L 501.5200, L500.4050, L501.2300, L100.0100, L501.9520 ####[facility] [address] [place], [address] Chloride [Moles/Vol] 113 mmol/L High 98-107 [facility] Comment on above: Performed By: #### L 501.5200, L500.4050, L501.2300, L100.0100, L501.9520 ####[facility] [address] [place], [address] CO2 [Moles/Vol] 23.0 mmol/L Normal 21.0-32.[address] [facility] Comment on above: Performed By: #### L 501.5200, L500.4050, L501.2300, L100.0100, L501.9520 ####[facility] [address] [place], [address] Creatinine [Mass/Vol] 0.72 mg/dL Normal 0.55-1.02 [facility] Comment on above: Result Comment: The validity of the calculated GFR GFRAA in patients over70 years has not been determined. Clinical correlation isessential. Performed By: #### L 501.5200, L500.4050, L501.2300, L100.0100, L501.9520 ####[facility] [address] [place], [address] ECRCL 87.80 ml/min Normal [facility] Comment on above: Performed By: #### L 501.5200, L500.4050, L501.2300, L100.0100, L501.9520 ####[facility] [address] [place], [address] EST GFR - AA 110 mL/min Normal >[address] [facility] Comment on above: Result Comment: Afri can [place] GFR Calc Performed By: #### L 501.5200, L500.4050, L501.2300, L100.0100, L501.9520 ####[facility] [address] [place], [address] GAP 5 Normal 5-[address] [facility] Comment on above: Performed By: #### L 501.5200, L500.4050, L501.2300, L100.0100, L501.9520 ####[facility] [address] [place], [address] GFR/1.73 sq M.predicted among non-blacks MDRD (S/P/Bld) [Vol rate/Area] 91 mL/min/{1.73_m2} Normal >[address] [facility] Comment on above: Result Comment: Non- GFR Calc Performed By: #### L 501.5200, L500.4050, L501.2300, L100.0100, L501.9520 ####[facility] [address] [place], [address] Globulin (S) [Mass/Vol] 3.7 g/dL Normal 2.2-4.[address] [facility] Comment on above: Performed By: #### L 501.5200, L500.4050, L501.2300, L100.0100, L501.9520 ####[facility] [address] [place], [address] Glucose [Mass/Vol] 87 mg/dL Normal 74-106 [facility] Comment on above: Performed By: #### L 501.5200, L500.4050, L501.2300, L100.0100, L501.9520 ####[facility] [address] [place], [address] Potassium [Moles/Vol] 3.5 mmol/L Normal 3.5-5.1 [facility] Comment on above: Performed By: #### L 501.5200, L500.4050, L501.2300, L100.0100, L501.9520 ####[facility] [address] [place], [address] Sodium [Moles/Vol] 141 mmol/L Normal 136-145 [facility] Comment on above: Performed By: #### L 501.5200, L500.4050, L501.2300, L100.0100, L501.9520 ####[facility] [address] [place], [address] T PROT 6.2 g/dL Low 6.4-8.[address] [facility] Comment on above: Performed By: #### L 501.5200, L500.4050, L501.2300, L100.0100, L501.9520 ####[facility] [address] [place], [address] Urea nitrogen [Mass/Vol] 10 mg/dL Normal 04-[address] [facility] Comment on above: Performed By: #### L 501.5200, L500.4050, L501.2300, L100.0100, L501.9520 ####[facility] [address] [place], [address] MR/CON.PCM.GIon 04-12-2024 MR/CON.PCM.GI Normal [facility] Magnesiumon 04-12-2024 Magnesium [Mass/Vol] 1.9 mg/dL Normal 1.6-2.6 [facility] Comment on above: Performed By: #### L 501.5200, L500.4050, L501.2300, L100.0100, L501.9520 ####[facility] [address] [place], [address] Paracentesis with USon 04-12 Paracentesis with US Normal [facility] Phosphoruson 04-12-2024 Phosphate [Mass/Vol] 3.2 mg/dL Normal 2.5-4.9 [facility] Comment on above: Performed By: #### L 501.5200, L500.4050, L501.2300, L100.0100, L501.9520 ####[facility] [address] [place], [address] Thyroid Stim Hormone (TSH)on 04-12-2024 TSH 1.66 uIU/mL Normal 0.358-3.[address] [facility] Comment on above: Performed By: #### L 501.5200, L500.4050, L501.2300, L100.0100, L501.9520 ####[facility] [address] [place], [address] Type AND Screenon 04-12-2024 ABO and Rh group Nom (Bld) Blood group A Rh(D) positive Normal [facility] Comment on above: Order Comment: A Performed By: #### B TS, L505.5000, L501.9100 ####[facility] [address] [place], [address] Urine Drug Screen (VISTA)on 04-12-2024 AMPHETAMINES Negative Normal <1000 ng/mL [facility] Comment on above: Performed By: #### Jose TS, L505.5000, L501.9100 ####[facility] [address] [place], [address] BARBITIURATES Negative Normal < 200 ng/mL [facility] Comment on above: Performed By: #### Jose TS, L505.5000, L501.9100 ####[facility] [address] [place], [address] BENZODIAZIPINE Negative Normal < 200 ng/mL [facility] Comment on above: Performed By: #### B TS, L505.5000, L501.9100 ####[facility] [address] [place], [address] COCAINE Negative Normal < 300 ng/mL [facility] Comment on above: Performed By: #### B TS, L505.5000, L501.9100 ####[facility] [address] [place], [address] ECSTACY Negative Normal < 500 ng/mL [facility] Comment on above: Performed By: #### B TS, L505.5000, L501.9100 ####[facility] [address] [place], [address] METHADONE Negative Normal < 300 ng/mL [facility] Comment on above: Performed By: #### B TS, L505.5000, L501.9100 ####[facility] [address] [place], [address] OPIATES Negative Normal < 300 ng/mL [facility] Comment on above: Performed By: #### B TS, L505.5000, L501.9100 ####[facility] [address] [place], [address] PCP Negative Normal < 25 ng/mL [facility] Comment on above: Performed By: #### B TS, L505.5000, L501.9100 ####[facility] [address] [place], [address] THC Positive Abnormal < 50 ng/mL [facility] Comment on above: Performed By: #### B TS, L505.5000, L501.9100 ####[facility] [address] [place], [address] VISTA UDS PH [address] [facility] Comment on above: Performed By: #### B TS, L505.5000, L501.9100 ####[facility] [address] [place], [address] Abdomen/Pelvis W IV Cont ONL Yon 04-11-2024 Abdomen/Pelvis W IV Cont ONLY Normal [facility] Basic Metabolic Profile (BMP )on 04-11-2024 BUN/CRE 14.2 RATIO Normal 10-[address] [facility] Comment on above: Performed By: #### L 500.3400, L300.3900, L501.2450, L500.2500, L100.0100 ####[facility] [address] [place], [address] CA,Total 9.0 mg/dL Normal 8.5-10.[address] [facility] Comment on above: Performed By: #### L 500.3400, L300.3900, L501.2450, L500.2500, L100.0100 ####[facility] [address] [place], [address] Chloride [Moles/Vol] 110 mmol/L High 98-107 [facility] Comment on above: Performed By: #### L 500.3400, L300.3900, L501.2450, L500.2500, L100.0100 ####[facility] [address] [place], [address] CO2 [Moles/Vol] 21.0 mmol/L Normal 21.0-32.[address] [facility] Comment on above: Performed By: #### L 500.3400, L300.3900, L501.2450, L500.2500, L100.0100 ####[facility] [address] [place], [address] Creatinine [Mass/Vol] 0.77 mg/dL Normal 0.55-1.02 [facility] Comment on above: Result Comment: The validity of the calculated GFR GFRAA in patients over70 years has not been determined. Clinical correlation isessential. Performed By: #### L 500.3400, L300.3900, L501.2450, L500.2500, L100.0100 ####[facility] [address] [place], [address] ECRCL 82.39 ml/min Normal [facility] Comment on above: Performed By: #### L 500.3400, L300.3900, L501.2450, L500.2500, L100.0100 ####[facility] [address] [place], [address] EST GFR - AA 101 mL/min Normal >[address] [facility] Comment on above: Result Comment: Afri can [place] GFR Calc Performed By: #### L 500.3400, L300.3900, L501.2450, L500.2500, L100.0100 ####[facility] [address] [place], [address] GAP 8 Normal 5-[address] [facility] Comment on above: Performed By: #### L 500.3400, L300.3900, L501.2450, L500.2500, L100.0100 ####[facility] [address] [place], [address] GFR/1.73 sq M.predicted among non-blacks MDRD (S/P/Bld) [Vol rate/Area] 84 mL/min/{1.73_m2} Normal >[address] [facility] Comment on above: Result Comment: Non- GFR Calc Performed By: #### L 500.3400, L300.3900, L501.2450, L500.2500, L100.0100 ####[facility] [address] [place], [address] Glucose [Mass/Vol] 93 mg/dL Normal 74-106 [facility] Comment on above: Performed By: #### L 500.3400, L300.3900, L501.2450, L500.2500, L100.0100 ####[facility] [address] [place], [address] Potassium [Moles/Vol] 3.8 mmol/L Normal 3.5-5.1 [facility] Comment on above: Performed By: #### L 500.3400, L300.3900, L501.2450, L500.2500, L100.0100 ####[facility] [address] [place], [address] Sodium [Moles/Vol] 139 mmol/L Normal 136-145 [facility] Comment on above: Performed By: #### L 500.3400, L300.3900, L501.2450, L500.2500, L100.0100 ####[facility] [address] [place], [address] Urea nitrogen [Mass/Vol] 11 mg/dL Normal 7-[address] [facility] Comment on above: Performed By: #### L 500.3400, L300.3900, L501.2450, L500.2500, L100.0100 ####[facility] [address] [place], [address] CBC W/Diff, Automatedon 03-26 Absolute Lymph 1.43 X10 3/uL Normal 0.83-4.[address] [facility] Comment on above: Performed By: #### L 500.3400, L300.3900, L501.2450, L500.2500, L100.0100 ####[facility] [address] [place], [address] Absolute Neut 4.5 X10 3/uL Normal 2.0-7.[address] [facility] Comment on above: Performed By: #### L 500.3400, L300.3900, L501.2450, L500.2500, L100.0100 ####[facility] [address] [place], [address] Basophils/100 WBC (Bld) 0.7 % Normal 0-[address] [facility] Comment on above: Performed By: #### L 500.3400, L300.3900, L501.2450, L500.2500, L100.0100 ####[facility] [address] [place], [address] Eosinophils/100 WBC (Bld) 2.4 % Normal 0-[address] [facility] Comment on above: Performed By: #### L 500.3400, L300.3900, L501.2450, L500.2500, L100.0100 ####[facility] [address] [place], [address] Erythrocyte distribution width (RBC) [Ratio] 17.8 % High 11.6-14.[address] [facility] Comment on above: Performed By: #### L 500.3400, L300.3900, L501.2450, L500.2500, L100.0100 ####[facility] [address] [place], [address] Hematocrit (Bld) [Volume fraction] 32.6 % Low 37-[address] [facility] Comment on above: Performed By: #### L 500.3400, L300.3900, L501.2450, L500.2500, L100.0100 ####[facility] [address] [place], [address] Hemoglobin (Bld) [Mass/Vol] 11.1 g/dL Low 12.0-15.[address] [facility] Comment on above: Performed By: #### L 500.3400, L300.3900, L501.2450, L500.2500, L100.0100 ####[facility] [address] [place], [address] IG% 0.300 Normal 0.0-0.[address] [facility] Comment on above: Result Comment: IG% - Immature Granulocytes (promyelocytes, myelocytes andmetamyelocytes) > 1% indicates that a LEFT SHIFT is Present. Performed By: #### L 500.3400, L300.3900, L501.2450, L500.2500, L100.0100 ####[facility] [address] [place], [address] Lymphocytes/100 WBC (Bld) 21.1 % Normal 19-[address] [facility] Comment on above: Performed By: #### L 500.3400, L300.3900, L501.2450, L500.2500, L100.0100 ####[facility] [address] [place], [address] MCH (RBC) [Entitic mass] 29.5 pg Normal 27.0-32.[address] [facility] Comment on above: Performed By: #### L 500.3400, L300.3900, L501.2450, L500.2500, L100.0100 ####[facility] [address] [place], [address] MCHC (RBC) [Mass/Vol] 34.0 g/dL Normal 32-36 [facility] Comment on above: Performed By: #### L 500.3400, L300.3900, L501.2450, L500.2500, L100.0100 ####[facility] [address] [place], [address] MCV (RBC) [Entitic vol] 86.7 fL Normal 81-[address] [facility] Comment on above: Performed By: #### L 500.3400, L300.3900, L501.2450, L500.2500, L100.0100 ####[facility] [address] [place], [address] Monocytes/100 WBC (Bld) 8.4 % Normal 0-[address] [facility] Comment on above: Performed By: #### L 500.3400, L300.3900, L501.2450, L500.2500, L100.0100 ####[facility] [address] [place], [address] Neutrophils/100 WBC (Bld) 67.1 % Normal 47-[address] [facility] Comment on above: Performed By: #### L 500.3400, L300.3900, L501.2450, L500.2500, L100.0100 ####[facility] [address] [place], [address] Nucleated RBC (Bld) [#/Vol] 0 10*3/uL Normal 0-[address] [facility] Comment on above: Performed By: #### L 500.3400, L300.3900, L501.2450, L500.2500, L100.0100 ####[facility] [address] [place], [address] Platelet mean volume (Bld) [Entitic vol] 11.8 fL Normal 6.2-12.[address] [facility] Comment on above: Performed By: #### L 500.3400, L300.3900, L501.2450, L500.2500, L100.0100 ####[facility] [address] [place], [address] Platelets (Bld) [#/Vol] 59 10*3/uL Low 150-[address] [facility] Comment on above: Performed By: #### L 500.3400, L300.3900, L501.2450, L500.2500, L100.0100 ####[facility] [address] [place], [address] RBC (Bld) [#/Vol] 3.76 10*6/uL Low 4.2-5.4 [facility] Comment on above: Performed By: #### L 500.3400, L300.3900, L501.2450, L500.2500, L100.0100 ####[facility] [address] [place], [address] RDW SD 56.5 fl High 35.1-43.[address] [facility] Comment on above: Performed By: #### L 500.3400, L300.3900, L501.2450, L500.2500, L100.0100 ####[facility] [address] [place], [address] WBC (Bld) [#/Vol] 6.8 10*3/uL Normal 4.4-11.0 [facility] Comment on above: Performed By: #### L 500.3400, L300.3900, L501.2450, L500.2500, L100.0100 ####[facility] [address] [place], [address] Emergency Department Summary on 04-11-2024 Emergency Department Summary Normal [facility] H AND P Exam - Hospitaliston 04-11-2024 H&P Exam - Hospitalist Normal [facility] Lipaseon 04-11-2024 Lipase [Catalytic activity/Vol] 49 U/L Normal 13-[address] [facility] Comment on above: Result Comment: My jimenez note:LIPASE revised reference range effective 23.New Lipase methodology. Expected to produce lower valuesthan the previous assay method.NEW Reference Range: 13 - 75 U/L Performed By: #### L 500.3400, L300.3900, L501.2450, L500.2500, L100.0100 ####[facility] [address] [place], [address] Liver Profileon 04-11-2024 Albumin [Mass/Vol] 2.6 g/dL Low 3.2-5.0 [facility] Comment on above: Performed By: #### L 500.3400, L300.3900, L501.2450, L500.2500, L100.0100 ####[facility] [address] [place], [address] ALK P 131 U/L High 45-[address] [facility] Comment on above: Performed By: #### L 500.3400, L300.3900, L501.2450, L500.2500, L100.0100 ####[facility] [address] [place], [address] ALT [Catalytic activity/Vol] 107 U/L High 13-[address] [facility] Comment on above: Performed By: #### L 500.3400, L300.3900, L501.2450, L500.2500, L100.0100 ####[facility] [address] [place], [address] AST [Catalytic activity/Vol] 159 U/L High 15-[address] [facility] Comment on above: Performed By: #### L 500.3400, L300.3900, L501.2450, L500.2500, L100.0100 ####[facility] [address] [place], [address] Bilirubin [Mass/Vol] 2.10 mg/dL High 0.20-1.00 [facility] Comment on above: Result Comment: For patients on eltrombopag therapy, use of Dimension [place] TBIL is not recommended. Performed By: #### L 500.3400, L300.3900, L501.2450, L500.2500, L100.0100 ####[facility] [address] [place], [address] Bilirubin.direct [Mass/Vol] 0.88 mg/dL High 0.00-0.[address] [facility] Comment on above: Performed By: #### L 500.3400, L300.3900, L501.2450, L500.2500, L100.0100 ####[facility] [address] [place], [address] Globulin (S) [Mass/Vol] 4.6 g/dL High 2.2-4.[address] [facility] Comment on above: Performed By: #### L 500.3400, L300.3900, L501.2450, L500.2500, L100.0100 ####[facility] [address] [place], [address] T PROT 7.2 g/dL Normal 6.4-8.[address] [facility] Comment on above: Performed By: #### L 500.3400, L300.3900, L501.2450, L500.2500, L100.0100 ####[facility] [address] [place], [address] Prothrombin Time w/INRon INR Coag (PPP) [Relative time] 1.5 {INR} Normal [facility] Comment on above: Performed By: #### L 500.3400, L300.3900, L501.2450, L500.2500, L100.0100 ####[facility] [id number] [place], [address] PT Coag (PPP) [Time] 18.1 s High 11.7-14.9 [facility] Comment on above: Performed By: #### L 500.3400, L300.3900, L501.2450, L500.2500, L100.0100 ####[facility] [address] [place], [address] Urinalysis, Completeon 04-11 WBC >100 SEEN Normal 0-[address] [facility] Comment on above: Order Comment: CLEAN CATCH Result Comment: Micr oscopic field is filled. Other elements may beobscured. Performed By: #### L 400.0001 ####[facility] [id number] [place], [address] BACTERIA 0 SEEN Normal None Seen [facility] Comment on above: Order Comment: CLEAN CATCH Performed By: #### L 400.0001 ####[facility] [id number] [place], [address] EPI,SQUAMOUS 0 SEEN Normal 5-[address] [facility] Comment on above: Order Comment: CLEAN CATCH Performed By: #### L 400.0001 ####[facility] [id number] [place], [address] Mucus Ql (Urine sed) 0 SEEN Normal [facility] Comment on above: Order Comment: CLEAN CATCH Performed By: #### L 400.0001 ####[facility] [id number] [place], [address] RBC 0 SEEN Normal 0-[address] [facility] Comment on above: Order Comment: CLEAN CATCH Performed By: #### L 400.0001 ####[facility] [id number] [place], [address] .Auto Diffon 03-23-2024 Basophil, Absolute 0.0 10 3/mcL Normal 0.0-0.2 [facility] ([place]) Comment on above: Performed By: #### B MP, MORPH, GFR, CBC, ADIFF, MDW, ANEU #### [address] [address] Basophils/100 WBC (Bld) 0.4 % Normal 0.0-2.5 [facility] ([place]) Comment on above: Performed By: #### B MP, MORPH, GFR, CBC, ADIFF, MDW, ANEU #### [address] [address] Eosinophil, Absolute 0.3 10 3/mcL Normal 0.0-0.4 [facility] ([place]) Comment on above: Performed By: #### B MP, MORPH, GFR, CBC, ADIFF, MDW, ANEU #### [address] [address] Eosinophils/100 WBC (Bld) 3.8 % Normal 0.0-7.0 [facility] ([place]) Comment on above: Performed By: #### B MP, MORPH, GFR, CBC, ADIFF, MDW, ANEU #### [address] [address] Lymphocyte, Absolute 1.3 10 3/mcL Normal 0.8-3.9 [facility] ([place]) Comment on above: Performed By: #### B MP, MORPH, GFR, CBC, ADIFF, MDW, ANEU #### [address] [address] Lymphocytes/100 WBC (Bld) 19.3 % Normal 10.0-50.0 [facility] ([place]) Comment on above: Performed By: #### B MP, MORPH, GFR, CBC, ADIFF, MDW, ANEU #### [address] [address] Monocyte, Absolute 0.6 10 3/mcL Normal 0.2-1.0 [facility] ([place]) Comment on above: Performed By: #### B MP, MORPH, GFR, CBC, ADIFF, MDW, ANEU #### [address] [address] Monocytes/100 WBC (Bld) 9.1 % Normal 1.7-13.0 [facility] ([place]) Comment on above: Performed By: #### B MP, MORPH, GFR, CBC, ADIFF, MDW, ANEU #### [address] [address] Neutrophils/100 WBC (Bld) 67.4 % Normal 37.0-80.0 [facility] ([place]) Comment on above: Performed By: #### B MP, MORPH, GFR, CBC, ADIFF, MDW, ANEU #### [address] [address] .GFRon 03-23-2024 GFR Non- 64 ml/min/1.73sqm Normal [facility] ([place]) Comment on above: Result Comment: GFR Population [...] MORPH, GFR, CBC, ADIFF, MDW, ANEU #### [address] [address] GFR 77 ml/min/1.73sqm Normal [facility] ([place]) Comment on above: Result Comment: GFR Population [...] MORPH, GFR, CBC, LUIS BERTRAND, ANEU #### [place] [address] .MDWon 03-23-2024 Monocyte Distribution Width 26.42 High 0.00-20.00 [facility] ([place]) Comment on above: Result Comment: The predictive value of MDW for identifying sepsis in patients with hematological abnormalities has not been established Performed By: #### B MP, MORPH, GFR, CBC, LUIS BERTRAND, ANEU #### [place] [address] .Morphon 03-23-2024 Platelet Estimate Decreased Normal [facility] ([place]) Comment on above: Performed By: #### B MP, MORPH, GFR, CBC, ELZA, LUIS, ANEU #### [place] [address] .NEUABSon 03-23-2024 Neutrophil, Absolute 4.6 10 3/mcL Normal 2.9-6.2 [facility] ([place]) Comment on above: Performed By: #### B MP, MORPH, GFR, CBC, LUIS BERTRAND, ANEU #### [place] [address] Melody 03-23-2024 Ammonia (P) [Moles/Vol] 42 umol/L High 11-32 [facility] ([place]) Comment on above: Performed By: #### A MM ####[place] [id number] BMPon 03-23-2024 BUN/Creatinine Ratio 14 ratio Normal 7-27 [facility] ([place]) Comment on above: Performed By: #### B MP, MORPH, GFR, CBC, LUIS BERTRAND, ANEU #### [address] [address] Calcium [Mass/Vol] 8.4 mg/dL Normal 8.4-10.2 [facility] ([place]) Comment on above: Performed By: #### B MP, MORPH, GFR, CBC, LUIS BERTRAND, ANEU #### [address] [address] Chloride [Moles/Vol] 106 mmol/L Normal 98-107 [facility] ([place]) Comment on above: Performed By: #### B MP, MORPH, GFR, CBC, LUIS BERTRAND, ANEU #### [address] [address] CO2 [Moles/Vol] 24 mmol/L Normal 22-29 [facility] ([place]) Comment on above: Performed By: #### B MP, MORPH, GFR, CBC, LUIS BERTRAND, ANEU #### [address] [address] Creatinine [Mass/Vol] 0.93 mg/dL Normal 0.55-1.02 [facility] ([place]) Comment on above: Performed By: #### B MP, MORPH, GFR, CBC, LUIS BERTRAND, ANEU #### [address] [address] Electrolyte Balance 8.0 mEq/L Normal 4.0-15.0 [facility] ([place]) Comment on above: Performed By: #### B MP, MORPH, GFR, CBC, LUIS BERTRAND, ANEU #### [address] [address] Glucose [Mass/Vol] 100 mg/dL Normal 70-105 [facility] ([place]) Comment on above: Performed By: #### B MP, MORPH, GFR, CBC, LUIS BERTRAND, ANEU #### [address] [address] Potassium [Moles/Vol] 3.6 mmol/L Normal 3.5-5.1 [facility] ([place]) Comment on above: Performed By: #### B MP, MORPH, GFR, CBC, LUIS BERTRAND, ANEU #### [address] [address] Sodium [Moles/Vol] 138 mmol/L Normal 136-145 [facility] ([place]) Comment on above: Performed By: #### B MP, MORPH, GFR, CBC, LUIS BERTRAND, ANEU #### [place] [address] Urea nitrogen [Mass/Vol] 13 mg/dL Normal 7-18 [facility] ([place]) Comment on above: Performed By: #### B MP, MORPH, GFR, CBC, LUIS BERTRAND, ANEU #### [place] [id number] CBCon 03-23-2024 Erythrocyte distribution width (RBC) [Ratio] 20.9 % High 11.5-14.5 [facility] ([place]) Comment on above: Performed By: #### B MP, MORPH, GFR, CBCELZA MDW, ANEU #### [address] [address] Hematocrit (Bld) [Volume fraction] 33.8 % Low 37.0-47.0 [facility] ([place]) Comment on above: Performed By: #### B MP, MORPH, GFR, CBC, LUIS BERTRAND, ANEU #### [address] [address] Hgb 11.7 G/dL Low 12.0-16.0 [facility] ([place]) Comment on above: Performed By: #### B MP, MORPH, GFR, CBC, LUIS BERTRAND, ANEU #### [address] [address] MCH (RBC) [Entitic mass] 29.4 pg Normal 27.0-31.2 [facility] ([place]) Comment on above: Performed By: #### B MP, MORPH, GFR, CBC, ADSAVITA, W, ANEU #### [address] [address] MCHC 34.5 G/dL Normal 33.0-37.0 [facility] ([place]) Comment on above: Performed By: #### B MP, MORPH, GFR, CBC, ADIFF, MDW, ANEU #### [address] [address] MCV (RBC) [Entitic vol] 85.3 fL Normal 80.0-94.0 [facility] ([place]) Comment on above: Performed By: #### B MP, MORPH, GFR, CBC, ADIFF, W, ANEU #### [address] [address] Platelet 64 10 3/mcL Low 130-400 [facility] ([place]) Comment on above: Performed By: #### B MP, MORPH, GFR, CBC, ADIFF, MDW, ANEU #### [address] [address] Platelet mean volume (Bld) [Entitic vol] 8.2 fL Normal 7.4-10.4 [facility] ([place]) Comment on above: Performed By: #### B MP, MORPH, GFR, CBC, ADIFF, MDW, ANEU #### [address] [address] RBC 3.97 10 6/mcL Low 4.20-5.40 [facility] ([place]) Comment on above: Performed By: #### B MP, MORPH, GFR, CBC, ADIFF, MDW, ANEU #### [address] [address] WBC 6.7 10 3/mcL Normal 4.6-10.8 [facility] ([place]) Comment on above: Performed By: #### B MP, MORPH, GFR, CBC, ADIFF, MDW, ANEU #### [address] [address] [address] SOFT TISSUE NECK W/ CONTR David [...] 03/23/2024 5:09:20 PM Ordering Provider: HAYDER Lagos [facility] ([place]) LABORATORYOrdered By: SYSTEM SYSTEM on 03-23-2024 Ammonia [...] mmol/L Normal 22 - 29 mmol/L AO AD M SS Creatinine [Mass/Vol] 0.93 mg/dL Normal 0.55 [...] (Bld) [#/Vol] 3.97 106/mcL Low 4.20 - 5.4 0 10^6/mcL AO Workflow SS Sodium [Moles/Vol] 138 [...] Routine cultures are held for 5 days. [facility] Work Phone: Gastroenterology Visit Repor ton 03-09-2024 Gastroenterology Visit Report Normal [facility] Procedure Reporton 4 Procedure Report Normal 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 Thayre and the following reflects his/her service. Scribed by Halina Valencia MA / Stephanie Ch MA I agree with the Chief Complaint, ROS, and Past Histories independently gathered by the clinical direct support specialist and the remaining scribed note accurately describes my personal service to the patient. Melisa Guerrero (more content not included)... Normal [facility] KATJACAROLINA ([id number]) 1975 F Date Time Provider Department 02/02/24 ASHANTI SQUIRES During your visit today, we recorded the following information about you: Ashanti Squires PA-C 02/02/2024 1:47 PM Signed Please let patient know that her culture did show MRSA on her chin. I have sent a prescription for doxycycline 1 BID to the pharmacy[facility] Please use sunscreen/sun protection while on this [...] [facility] [place] HERLINDA Quintero Bernadette, PA-C 02/02/2024 4:44 PM Signed Please let [...] any abd/back pain or vomiting. Please advise. HERLINDA Quintero Mark D, MD 02/03/2024 10:17 AM Signed She should [...] in ED. Thank you, BHAKTI Lane Amanda, RN 02/06/2024 8:39 AM Signed Pt called and [...] the Pt back and left a message. Obed Mesa RN Allergies As of Date: 02/02/2024 [...] lactulose (DUPH (more content not included)... Normal [facility] Bacteria Ur Culton 4 Bacteria identified Cx Nom (U) ORGANISM ID: 1 50,000-<100,000 CFU/ml Methicillin resistant Staphylococcus aureus ORGANISM ID: 1 (METHICILLIN RESISTANT STAPHYLOCOCCUS AUREUS) ANTIBIOTIC INTERPRETATION SANDI STATUS REFERENCE RANGE Oxacillin R >=4 F Susceptible <=2 , [...] , Intermediate >32 , Resistant >64 Abnormal [facility] Comment on above: Performed By: #### 6 30-4 ####[facility] LABIA [id number] [place] [address] [place] Bacteria Wnd Culton 01-31-20 24 Bacteria identified Cx Nom (Wound) ORGANISM ID: 1 Rare Staphylococcus aureus Refer to specimen collected on \X09\01/31/2024 11:21 AM ([id number]) GRAM STAIN: No organisms seen No Polymorphonuclear Leukocytes Abnormal [facility] Comment on above: Performed By: #### 6 462-6 ####[facility] LABIA [id number] [place] [address] [place] Bacteria identified Cx Nom (Wound) ORGANISM ID: 1 Few Methicillin resistant Staphylococcus aureus ORGANISM ID: 2 Rare Staphylococcus epidermidis No further workup GRAM STAIN: No organisms seen No Polymorphonuclear Leukocytes ORGANISM ID: 1 (METHICILLIN RESISTANT STAPHYLOCOCCUS AUREUS) ANTIBIOTIC INTERPRETATION SANDI STATUS REFERENCE RANGE Oxacillin R >=4 F Susceptible <=2 , [...] , Intermediate >4 , Resistant >8 Abnormal [facility] Comment on above: Performed By: #### 6 462-6 ####[facility] LABSUNIL [id number] [place] [id number] [place] CNOVon 01-31-2024 CNOV Office Visit (FAMPWS ) KATJACAROLINA Anna ([id number]) 1975 F Date Time Provider Department 01/31/24 10:00 AM ASHANTI SQUIRES During your visit today, we [...] is scheduled to dermatology next week in [place]. She admits to previous MRSA infection in [...] ?F) Resp 12 Ht 157.5 cm (5' 2) Wt 73.9 kg (163 lb) LMP 11/20/2020 [...] to cross (more content not included)... Normal [facility] UA DIP, URINE (POC)on 2023 BILIRUBIN UA (POCT) Negative Negative [facility] CLARITY UA (POCT) Cloudy [facility] COLOR UA (POCT) Dark yellow [facility] GLUCOSE UA (POCT) Negative Negative mg/dL [facility] Hemoglobin Ql (U) Large Abnormal Negative [facility] Interpretation and review of laboratory results Abnormal [facility] KETONE UA (POCT) Negative Negative mg/dL [facility] LEUKOCYTES UA (POCT) Small Abnormal Negative [facility] NITRITE UA (POCT) Positive Abnormal Negative [facility] PH UA (POCT) 6.0 4.5 - 8.0 [facility] Protein Ql (U) 100 mg/dL Abnormal Negative [facility] SPECIFIC GRAVITY UA (POCT) 1.025 1.005 - 1.030 [facility] UROBILINOGEN UA (POCT) 2.0 Abnormal Normal E.U./d L [facility] Location:[facility], [address] [place] [address], [place], [place], [id number] [place] [address] POINT OF CARE [facility] CNCOon 12-27-2023 CNCO Letter Text Normal [facility] CNOVon 12-13-2023 CNOV Office Visit (FAMPWS ) CAROLINA HIGHTOWER ([id number]) 1975 F Date Time Provider Department 12/13/23 1:00 PM MERVIN MATTHEWS FAMPWS During your visit today, we recorded the following information about you: Temperature Pulse Respiration Blood pressure 97.9 degrees 68/minute 16/minute 91/62 Weight 81.7 kg Mervin Matthews APRN.CNP 12/13/2023 2:13 PM Signed Chief Complaint Patient presents with: ER F/U: [facility] multiple times from 10/2023-11/3023: abdominal pain, cirrhosis of liver, ascites HPI Carolina Hightower is a 48 year old female who presents here today for Hospital Discharge Follow up. Patient is here for emergency room and hospital follow-up. Patient has had multiple trips to the emergency room at [facility]. 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 I discussed that if she [...] ONDANSETRON 4 MG DISINTEGRATING TABLET Mervin Matthews APRN.DEEPIKA This note was partly generated using [employer] voice recognition dictation and may contain some [...] Comments: seizures Date Reviewed: 12/13/2023 Reviewed by: Lyssa Suárez MA - Fully Assessed Reason for Visit: ER F/U [41] Cmt: [facility] multiple times from 10/2023-11/3023: abdominal pain, [...] 1 tablet (more content not included)... Normal [facility] CNPBonita 12-12-2023 [facility] CAROLINA HIGHTOWER ([id number]) 1975 F Date Time Provider Department 12/12/23 DACIA ACOSTA [facility] During your visit today, we recorded the following information about you: Obed Mesa, RN 12/12/2023 1:34 PM Signed Pt called in [...] is not able to make it in. Obed Mesa RN 12/12/2023 2:42 PM Signed Pt canceled appointment. 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 Automated lymphocyte count a s percentage of total leukocytesOrdered By: Shon Quintero on 12-09-2023 Lymphocytes/100 WBC Auto (Unsp spec) 21.5 % 19-[address] [facility] Basophil percentageOrdered B y: Erik Cordova on 12-09-2023 Basophil percentage 10-25 SEEN /hpf 0-[address] [facility] Basophil percentage 29.0 umol/L 11-[address] [facility] [facility] Basophil percentageOrdered B y: Shon Quintero on 12-09-2023 Basophil percentage 8.9 g/dL 12.0-15.0 [facility] Basophil percentage 108 mg/dL 74-106 [facility] Basophil percentage 8.0 g/dL 6.4-8.2 [facility] Basophil percentage 1.70 mg/dL 0.20-1.00 [facility] Basophil percentage 139 mmol/L 136-145 [facility] Basophil percentage 3.7 mmol/L 3.5-5.1 [facility] Basophil percentage 112 mmol/L 98-107 [facility] Basophils (Bld) [#/Vol] 7.3 10*3/uL 4.4-11.[address] [facility] Basophils (Bld) [#/Vol] 4.7 10*3/uL 2.0-7.[address] [facility] Basophils/100 WBC (Bld) 64.5 % 47-[address] [facility] Basophils/100 WBC (Bld) 10.8 % 0-[address] [facility] Basophils/100 WBC (Bld) 1.9 % 0-[address] [facility] Basophils/100 WBC (Bld) 1.0 % 0-[address] [facility] Bilirubin Test strip Ql (U)O rdered By: Erik Cordova on 12-09-2023 Bilirubin Ql (U) 1 mg/dL Negative [facility] Blood platelet adequacy dete ction by light microscopyOrdered By: Shon Quintero on 12-09-2023 Platelets LM Ql (Bld) MOD DEC ADEQ [facility] CNCOon 12-09-2023 CNCO Letter Text Normal [facility] Determination of erythrocyte mean corpuscular volume (MCV)Ordered By: Shon Quintero on 12-09-2023 MCV (RBC) [Entitic vol] 81.9 fL 81-[address] [facility] Direct bilirubinOrdered By: ED PROVIDER on 12-09-2023 Bilirubin.direct [Mass/Vol] 0.85 mg/dL 0.00-0.[address] [facility] Erythrocyte distribution wid th ratioOrdered By: Shon Quintero on 12-09-2023 Erythrocyte distribution width (RBC) [Ratio] 25.8 % 11.6-14.[address] [facility] Erythrocyte distribution wid th standard deviationOrdered By: Shon Quintero on 12-09-2023 Erythrocyte distribution width (RBC) [Entitic vol] 75.5 fL 35.1-43.[address] [facility] Hematocrit Auto (Bld) [Volum e fraction]Ordered By: Shon Quintero on 12-09-2023 Hematocrit (Bld) [Volume fraction] 29.8 % 37-[address] [facility] Immature granulocytes/100 WB C Auto (Bld)Ordered By: Shon Quintero on 12-09-2023 Immature granulocytes/100 WBC (Bld) 0.300 % 0.0-0.[address] [facility] Ketones Test strip Ql (U)Ord ered By: Erik Cordova on 12-09-2023 Ketones Ql (U) 5 mg/dl Negative [facility] Mucus LM Ql (Urine sed)Order ed By: Erik Cordova on 12-09-2023 Mucus Ql (Urine sed) 2+ /hpf [facility] Nitrite Test strip Ql (U)Ord ered By: Erik Cordova on 12-09-2023 Nitrite Ql (U) Positive Negative [facility] No Panel InformationOrdered By: Erik Cordova on 12-09-2023 0 SEEN /hpf 0-[address] [facility] 19.2 SECONDS 11.7-14.[address] [facility] 1.[address] [facility] 58 U/L 13-[address] [facility] No Panel InformationOrdered By: Shon Quintero on 12-09-2023 24.5 pg 27.0-32.[address] [facility] 29.9 g/dL 32-[address] [facility] 69 K/mm3 150-[address] [facility] TNP [facility] 0 % 0-[address] [facility] 1+ [facility] 71 mL/min >[address] [facility] 86 mL/min >[address] [facility] 75.00 ml/min [facility] 11.2 RATIO 10-[address] [facility] 5.3 g/dL 2.2-4.[address] [facility] 0.5 RATIO 0.9-2.[address] [facility] 148 U/L 45-[address] [facility] 45 U/L 13-[address] [facility] 23.0 mmol/L 21.0-32.[address] [facility] Ovalocyte detectionOrdered B y: Shon Quintero on 12-09-2023 Ovalocytes LM Ql (Bld) RARE [facility] Protein Test strip Ql (U)Ord ered By: Erik Cordova on 12-09-2023 Protein Ql (U) 30 mg/dl Negative [facility] RBC Auto (Bld) [#/Vol]Ordere d By: Shon Quintero on 12-09-2023 RBC (Bld) [#/Vol] 3.64 10*6/uL 4.2-5.4 [facility] RBC morphologyOrdered By: Senait Quintero on 12-09-2023 RBC morphology finding Nom (Bld) N CHROM NORMAL NORM C&C [facility] Serum or plasma calcium latrice urement (mass/volume)Ordered By: Shon Quintero on 12-09-2023 Calcium [Mass/Vol] 8.8 mg/dL 8.5-10.1 [facility] Serum or plasma choriogonado tropin detectionOrdered By: Shon Quintero on 12-09-2023 HCG ( test) Ql Negative [facility] Serum or plasma creatinine m easurement (mass/volume)Ordered By: Shon Quintero on 12-09-2023 Creatinine [Mass/Vol] 0.89 mg/dL 0.55-1.02 [facility] Serum or plasma urea nitroge n measurement (mass/volume)Ordered By: Shon Quintero on 12-09-2023 Urea nitrogen [Mass/Vol] 10 mg/dL 7-[address] [facility] Squamous epithelial cells de tection in urine sediment by light microscopyOrdered By: Erik Cordova on 12-09-2023 Epithelial cells.squamous LM Ql (Urine sed) 0-5 SEEN /hpf 5-[address] [facility] Thin prep Papanicolaou smear with manual screeningOrdered By: Shon Quintero on 12-09-2023 Thin prep Papanicolaou smear with manual screening 1+ [facility] Thin prep Papanicolaou smear with manual screening 2.7 g/dL 3.2-5.[address] [facility] Thin prep Papanicolaou smear with manual screening 73 U/L 15-[address] [facility] Thin prep Papanicolaou smear with manual screening 4 5-[address] [facility] Urine blood detectionOrdered By: Erik Cordova on 12-09-2023 RBC Ql (U) 150 /ul Negative [facility] Urine clarityOrdered By: Marysol Cordova on 12-09-2023 Clarity (U) Clear Clear [facility] Urine color determinationOrd ered By: Erik Cordova on 12-09-2023 Color (U) Yellow Yellow [facility] Urine glucose detectionOrder ed By: Erik Cordova on 12-09-2023 Glucose Ql (U) Normal mg/dl Normal [facility] Urine leukocyte esterase det ection by dipstickOrdered By: Erik Cordova on 12-09-2023 Leukocyte esterase Test strip Ql (U) 100 /ul Negative [facility] Urine pHOrdered By: Erik cabrales on 12-09-2023 pH (U) 6.5 [pH] 5.0 - 8.[address] [facility] Urine sediment bacteria coun t by microscopy (number/high power field)Ordered By: Erik Cordova on 12-09-2023 Bacteria LM.HPF (Urine sed) [#/Area] 1 /[HPF] None Seen [facility] Urine specific gravity measu rementOrdered By: Erik Cordova on 12-09-2023 Specific gravity (U) [Rel density] 1.020 1.002-1.[address] [facility] Urine urobilinogen measureme ntOrdered By: Erik Cordova on 12-09-2023 Urobilinogen Ql (U) 4 mg/dl Normal [facility] Absolute lymphocyte countOrd ered By: Son Adams on 12-07-2023 Lymphocytes Auto (Unsp spec) [#/Vol] 1.82 10*3/uL 0.83-4.[address] [facility] Automated lymphocyte count a s percentage of total leukocytesOrdered By: Son Adams on 12-07-2023 Lymphocytes/100 WBC Auto (Unsp spec) 34.6 % 19-[address] [facility] Basophil percentageOrdered B y: Son Adams on 12-07-2023 Basophil percentage 8.4 g/dL 12.0-15.0 [facility] Basophil percentage 101 mg/dL 74-106 [facility] Basophil percentage 6.7 g/dL 6.4-8.2 [facility] Basophil percentage 1.30 mg/dL 0.20-1.00 [facility] Basophil percentage 140 mmol/L 136-145 [facility] Basophil percentage 3.7 mmol/L 3.5-5.1 [facility] Basophil percentage 110 mmol/L 98-107 [facility] Basophils (Bld) [#/Vol] 5.3 10*3/uL 4.4-11.[address] [facility] Basophils (Bld) [#/Vol] 2.5 10*3/uL 2.0-7.[address] [facility] Basophils/100 WBC (Bld) 47.4 % 47-[address] [facility] Basophils/100 WBC (Bld) 12.2 % 0-[address] [facility] Basophils/100 WBC (Bld) 4.6 % 0-[address] [facility] Basophils/100 WBC (Bld) 0.8 % 0-[address] [facility] Blood platelet adequacy dete ction by light microscopyOrdered By: Son Adams on 12-07-2023 Platelets LM Ql (Bld) MKD DEC ADEQ [facility] Determination of erythrocyte mean corpuscular volume (MCV)Ordered By: Son Adams on 12-07-2023 MCV (RBC) [Entitic vol] 80.9 fL 81-[address] [facility] Direct bilirubinOrdered By: Son Adams on 12-07-2023 Bilirubin.direct [Mass/Vol] 0.70 mg/dL 0.00-0.[address] [facility] Erythrocyte distribution wid th ratioOrdered By: Son Adams on 12-07-2023 Erythrocyte distribution width (RBC) [Ratio] 25.8 % 11.6-14.[address] [facility] Erythrocyte distribution wid th standard deviationOrdered By: Son Adams on 12-07-2023 Erythrocyte distribution width (RBC) [Entitic vol] 75.2 fL 35.1-43.[address] [facility] Hematocrit Auto (Bld) [Volum e fraction]Ordered By: Son Adams on 12-07-2023 Hematocrit (Bld) [Volume fraction] 27.9 % 37-[address] [facility] Hypochromatic red blood cell detectionOrdered By: Son Adams on 12-07-2023 Hypochromia Ql (Bld) 1+ [facility] Immature granulocytes/100 WB C Auto (Bld)Ordered By: Son Adams on 12-07-2023 Immature granulocytes/100 WBC (Bld) 0.400 % 0.0-0.[address] [facility] No Panel InformationOrdered By: Son Adams on 12-07-2023 24.3 pg 27.0-32.[address] [facility] 30.1 g/dL 32-[address] [facility] 59 K/mm3 150-450 [facility] [facility] 0 % 0-[address] [facility] 1+ [facility] 87 mL/min >[address] [facility] 105 mL/min >[address] [facility] 87.75 ml/min [facility] 12.0 RATIO 10-[address] [facility] 4.5 g/dL 2.2-4.[address] [facility] 123 U/L 45-[address] [facility] 36 U/L 13-[address] [facility] 26.0 mmol/L 21.0-32.[address] [facility] RBC Auto (Bld) [#/Vol]Ordere d By: Son Adams on 12-07-2023 RBC (Bld) [#/Vol] 3.45 10*6/uL 4.2-5.4 [facility] Serum or plasma calcium latrice urement (mass/volume)Ordered By: Son Adams on 12-07-2023 Calcium [Mass/Vol] 7.9 mg/dL 8.5-10.1 [facility] Serum or plasma creatinine m easurement (mass/volume)Ordered By: Son Adams on 12-07-2023 Creatinine [Mass/Vol] 0.75 mg/dL 0.55-1.02 [facility] Serum or plasma urea nitroge n measurement (mass/volume)Ordered By: Son Adams on 12-07-2023 Urea nitrogen [Mass/Vol] 9 mg/dL 7-[address] [facility] Thin prep Papanicolaou smear with manual screeningOrdered By: Son Adams on 12-07-2023 Thin prep Papanicolaou smear with manual screening 2.2 g/dL 3.2-5.[address] [facility] Thin prep Papanicolaou smear with manual screening 53 U/L 15-[address] [facility] Thin prep Papanicolaou smear with manual screening 4 5-[address] [facility] No Panel InformationOrdered By: Son Adams on 12-06-2023 9.8 fl 6.2-12.[address] [facility] 20.5 SECONDS 11.7-14.[address] [facility] 1.[address] [facility] Anaerobic cultureOrdered By: Son Adams on 12-05-2023 Bacteria identified Anaer cx Nom (Unsp spec) No growth in [address] [facility] Basophil percentageOrdered B y: Son Adams on 12-05-2023 Basophil percentage 2.8 mg/dL 2.5-4.9 [facility] Basophil percentageOrdered B y: Sowmya White on 12-05-2023 Basophil percentage 37.0 umol/L [facility] Body fluid albumin measureme nt by colorimetric method (mass/volume)Ordered By: Son Adams on 12-05-2023 Albumin Ql (Body fld) 0.7 g/dL Not Estab. [facility] Body fluid amylase measureme nt (enzymatic activity/volume)Ordered By: Son Adams on 12-05-2023 Amylase (Body fld) [Catalytic activity/Vol] 13 U/L . [facility] Body fluid appearanceOrdered By: Son Adams on 12-05-2023 Appearance (Body fld) CLEAR [facility] Body fluid color determinati onOrdered By: Son Adams on 12-05-2023 Color (Body fld) LT YEL [facility] Body fluid leukocytes count (number/volume)Ordered By: Son Adams on 12-05-2023 WBC (Body fld) [#/Vol] 0.136 10*3/uL [facility] Body fluid lymphocytes/100 l eukocytesOrdered By: Son Adams on 12-05-2023 Lymphocytes/100 WBC (Body fld) 27 % [facility] Body fluid macrophage countO rdered By: Son Adams on 12-05-2023 Macrophages (Body fld) [#/Vol] 69 % [facility] Body fluid mesothelial cell percentageOrdered By: Son Adams on 12-05-2023 Mesothelial cells/100 WBC (Body fld) 4 % [facility] Body fluid mononuclear cell percentageOrdered By: Son Adams on 12-05-2023 Mononuclear cells/100 WBC (Body fld) 95.6 % [facility] Body fluid polymorphonuclear leukocyte countOrdered By: Son Adams on 12-05-2023 Polymorphonuclear cells (Body fld) [#/Vol] 0.006 10^3/uL [facility] Body fluid total cell countO rdered By: Son Adams on 12-05-2023 Cells Counted Total (Body fld) [#] 0.189 10^3/ul 0.000-0.[address] [facility] Cytology report of Body flui d Cyto stainOrdered By: Son Adams on 12-05-2023 Cytology report Cyto stain Doc (Body fld) SEE PATHOLOGY REPORT [facility] Gram stain for investigation of transfusion reactionOrdered By: Son Adams on 12-05-2023 Microscopic observation Gram stain Nom (Unsp spec) [facility] No Panel InformationOrdered By: Son Adams on 12-05-2023 101 /mm3 [facility] 4.4 % [facility] 0.130 10^3/uL [facility] SEE COMMENT [facility] 95 mg/dL 40-[address] [facility] Culture exhibits no growth. [facility] No Panel InformationOrdered By: Sowmya Mirza on 12-05-2023 0.4 RATIO 0.9-2.[address] [facility] Pathologist interpretation o f Body fluid testsOrdered By: Son Admas on 12-05-2023 Pathologist interpretation (Body fld) [Interp] May follow [facility] Pathologist interpretation (Body fld) [Interp] Reviewed [facility] Specimen source identificati on of body fluidOrdered By: Son Adams on 12-05-2023 Specimen source Nom (Body fld) OTHER [facility] Absolute lymphocyte countOrd ered By: Mica Díaz on 12-04-2023 Lymphocytes Auto (Unsp spec) [#/Vol] 1.43 10*3/uL 0.83-4.[address] [facility] Amorphous sediment detection in urine sediment by light microscopyOrdered By: Mica Díaz on 12-04-2023 Amorphous sediment LM Ql (Urine sed) 1+ URATE [facility] Automated lymphocyte count a s percentage of total leukocytesOrdered By: Mica Díaz on 12-04-2023 Lymphocytes/100 WBC Auto (Unsp spec) 23.3 % 19-[address] [facility] Basophil percentageOrdered B y: Mica Díaz on 12-04-2023 Basophil percentage 25-50 SEEN /hpf 0-[address] [facility] Ammonia (P) [Moles/Vol] 45.0 umol/L 11-[address] [facility] Basophils/100 WBC (Bld) 1.0 % 0-[address] [facility] Bilirubin [Mass/Vol] 2.10 mg/dL 0.20-1.00 [facility] Comment on above: For patients on eltr ombopag therapy, use of Dimension [place] TBIL is not recommended. Chloride [Moles/Vol] 110 mmol/L 98-107 [facility] Eosinophils/100 WBC (Bld) 2.3 % 0-[address] [facility] Glucose [Mass/Vol] 117 mg/dL 74-106 [facility] Comment on above: Fasting Glucose resu lt from 100 to 125 mg/dL suggests IMPAIRED HOMEOSTASIS per A.D.A. criteria. Hemoglobin (Bld) [Mass/Vol] 8.9 g/dL 12.0-15.[address] [facility] Monocytes/100 WBC (Bld) 10.7 % 0-[address] [facility] Neutrophils (Bld) [#/Vol] 3.8 10*3/uL 2.0-7.[address] [facility] Neutrophils/100 WBC (Bld) 62.4 % 47-[address] [facility] Potassium [Moles/Vol] 4.0 mmol/L 3.5-5.1 [facility] Protein [Mass/Vol] 7.3 g/dL 6.4-8.2 [facility] Sodium [Moles/Vol] 142 mmol/L 136-145 [facility] WBC (Bld) [#/Vol] 6.1 10*3/uL 4.4-11.0 [facility] Basophil percentageOrdered B y: Sowmya White on 12-04-2023 Basophil percentage 2.3 mg/dL 2.5-4.9 [facility] Bilirubin Test strip Ql (U)O rdered By: Mica Díaz on 12-04-2023 Bilirubin Ql (U) 3 mg/dL Negative [facility] Comment on above: COLOR OF URINE MAY A FFECT DIPSTICK RESULTS. Blood manual differential co mment interpretation (narrative result)Ordered By: Mica Díaz on 12-04-2023 Manual differential comment Eliezer (Bld) [Interp] SCANNED [facility] Determination of erythrocyte mean corpuscular volume (MCV)Ordered By: Mica Díaz on 12-04-2023 MCV (RBC) [Entitic vol] 82.1 fL 81-[address] [facility] Erythrocyte distribution wid th ratioOrdered By: Mica Díaz on 12-04-2023 Erythrocyte distribution width (RBC) [Ratio] 27.1 % 11.6-14.[address] [facility] Erythrocyte distribution wid th standard deviationOrdered By: Mica Díaz on 12-04-2023 Erythrocyte distribution width (RBC) [Entitic vol] 79.4 fL 35.1-43.[address] [facility] Hematocrit Auto (Bld) [Volum e fraction]Ordered By: Mica Díaz on 12-04-2023 Hematocrit (Bld) [Volume fraction] 30.2 % 37-[address] [facility] Hypochromatic red blood cell detectionOrdered By: Mica Díaz on 12-04-2023 Hypochromia Ql (Bld) 1+ [facility] Immature granulocytes/100 WB C Auto (Bld)Ordered By: Mica Díaz on 12-04-2023 Immature granulocytes/100 WBC (Bld) 0.300 % 0.0-0.[address] [facility] Comment on above: IG% - Immature Granu locytes (promyelocytes, myelocytes and metamyelocytes) > 1% indicates that a LEFT SHIFT is Present. Ketones Test strip Ql (U)Ord ered By: Mica Díaz on 12-04-2023 Ketones Ql (U) 15 mg/dl Negative [facility] Laboratory - Chemistry and C hemistry - challengeOrdered By: Mica Díaz on 12-04-2023 Albumin/Globulin [Mass ratio] 0.4 {ratio} 0.9-2.[address] [facility] ALP [Catalytic activity/Vol] 143 U/L 45-[address] [facility] ALT [Catalytic activity/Vol] 47 U/L 13-[address] [facility] CO2 [Moles/Vol] 27.0 mmol/L 21.0-32.[address] [facility] Globulin (S) [Mass/Vol] 5.1 g/dL 2.2-4.[address] [facility] Lipase [Catalytic activity/Vol] 30 U/L 13-[address] [facility] Comment on above: Please note:LIPASE r evised reference range effective 23. New Lipase methodology. Expected to produce lower values than the previous assay method. NEW Reference Range: 13 - 75 U/L Urea nitrogen/Creatinine [Mass ratio] 12.2 mg/mg 10-[address] [facility] Laboratory - Chemistry and C hemistry - challengeOrdered By: Sowmya Mirza on 12-04-2023 Magnesium [Mass/Vol] 1.6 mg/dL 1.6-2.6 [facility] - CoagulationOrde red By: Mica Díaz on 12-04-2023 INR Coag (Bld) [Relative time] 1.7 {INR} [facility] PT Coag (PPP) [Time] 20.0 s 11.7-14.9 [facility] - Hematology and Cell countsOrdered By: Mica Díaz on 12-04-2023 Anisocytosis Ql (Bld) 2+ [facility] MCH (RBC) [Entitic mass] 24.2 pg 27.0-32.[address] [facility] MCHC (RBC) [Mass/Vol] 29.5 g/dL 32-36 [facility] Nucleated RBC/100 WBC (Bld) [Ratio] 0 % 0-[address] [facility] Platelet mean volume (Bld) [Entitic vol] 9.5 fL 6.2-12.[address] [facility] Platelets (Bld) [#/Vol] 87 10*3/uL 150-[address] [facility] Macrocytes detectionOrdered By: iMca Díaz on 12-04-2023 Macrocytes Ql (Bld) 1+ [facility] Mucus LM Ql (Urine sed)Order ed By: Mica Díaz on 12-04-2023 Mucus Ql (Urine sed) 0 SEEN /hpf [facility] Nitrite Test strip Ql (U)Ord ered By: Mica Díaz on 12-04-2023 Nitrite Ql (U) Positive Negative [facility] No Panel InformationOrdered By: Mica Díaz on 12-04-2023 Urine RBC 5-10 SEEN /hpf 0-[address] [facility] 5-10 SEEN /hpf 0-[address] [facility] Estimated Creatinine Clearance Calc 83.21 ml/min [facility] Estimated GFR (MDRD) Amer 95 mL/min >[address] [facility] Comment on above: GFR Calc Estimated GFR (MDRD) Non-Af Amer 79 mL/min >[address] [facility] Comment on above: Non- GFR Calc 30 U/L 13-[address] [facility] No Panel InformationOrdered By: Sowmya Mirza on 12-04-[address] [facility] Negative < 300 ng/mL [facility] Positive < 50 ng/mL [facility] 1.6 mg/dL 1.6-2.[address] [facility] Protein Test strip Ql (U)Ord ered By: Mica Díaz on 12-04-2023 Protein Ql (U) 30 mg/dl Negative [facility] RBC Auto (Bld) [#/Vol]Ordere d By: Mica Díaz on 12-04-2023 RBC (Bld) [#/Vol] 3.68 10*6/uL 4.2-5.4 [facility] Serum or plasma calcium latrice urement (mass/volume)Ordered By: Mica Díaz on 12-04-2023 Calcium [Mass/Vol] 8.4 mg/dL 8.5-10.1 [facility] Serum or plasma creatinine m easurement (mass/volume)Ordered By: Mica Díaz on 12-04-2023 Creatinine [Mass/Vol] 0.82 mg/dL 0.55-1.02 [facility] Comment on above: The validity of the calculated GFR & GFRAA in patients over 70 years has not been determined. Clinical correlation is essential. Serum or plasma urea nitroge n measurement (mass/volume)Ordered By: Mica Díaz on 12-04-2023 Urea nitrogen [Mass/Vol] 10 mg/dL 7-[address] [facility] Squamous epithelial cells de tection in urine sediment by light microscopyOrdered By: Mica Díaz on 12-04-2023 Epithelial cells.squamous LM Ql (Urine sed) 0-5 SEEN /hpf 5-[address] [facility] Target cell detectionOrdered By: Mica Díaz on 12-04-2023 Target cells LM Ql (Bld) RARE [facility] Thin prep Papanicolaou smear with manual screeningOrdered By: Mica Díaz on 12-04-2023 Thin prep Papanicolaou smear with manual screening 1+ [facility] Thin prep Papanicolaou smear with manual screening 2.2 g/dL 3.2-5.[address] [facility] Thin prep Papanicolaou smear with manual screening 58 U/L 15-[address] [facility] Thin prep Papanicolaou smear with manual screening 5 5-[address] [facility] Urine blood detectionOrdered By: Mica Díaz on 12-04-2023 RBC Ql (U) 50 /ul Negative [facility] Urine clarityOrdered By: Daniel Díaz on 12-04-2023 Clarity (U) Sl. Cloudy Clear [facility] Urine color determinationOrd ered By: Mica Díaz on 12-04-2023 Color (U) Yellow Yellow [facility] Urine glucose detectionOrder ed By: Mica Díaz on 12-04-2023 Glucose Ql (U) Normal mg/dl Normal [facility] Urine leukocyte esterase det ection by dipstickOrdered By: Mica Díaz on 12-04-2023 Leukocyte esterase Test strip Ql (U) 500 /ul Negative [facility] Urine pHOrdered By: Zac Díaz on 12-04-2023 pH (U) 6.5 [pH] 5.0 - 8.[address] [facility] Urine phencyclidine (PCP) de tectionOrdered By: Sowmya White on 12-04-2023 Phencyclidine Ql (U) Negative < 25 ng/mL [facility] Urine sediment bacteria coun t by microscopy (number/high power field)Ordered By: Mica Díaz on 12-04-2023 Bacteria LM.HPF (Urine sed) [#/Area] RARE /hpf None Seen [facility] Urine specific gravity measu rementOrdered By: Mica Díaz on 12-04-2023 Specific gravity (U) [Rel density] 1.015 1.002-1.[address] [facility] Urine urobilinogen measureme ntOrdered By: Mica Díaz on 12-04-2023 Urobilinogen Ql (U) 8 mg/dl Normal [facility] CNPNon 11-28-2023 CNPN Telephone (FAMPWS) KATJACAROLINA Anna ([id number]) 1975 F Date Time Provider Department 11/28/23 [...] Comments: seizures Date Reviewed: 11/26/2023 Reviewed by: Bill Valenzuela Ma - Fully Assessed Reason for Visit: [...] Status:Closed by MELISA VICK MA on 11/28/23 [facility] CNOVon 11-26-2023 CNOV Office Visit (FAMPWS ) CAROLINA HIGHTOWER Anna ([id number]) 1975 F Date Time Provider Department 11/26/23 10:20 AM DACIA ACOSTA During your visit today, we recorded the following information about you: Pulse Respiration Blood pressure Weight 90/minute 20/minute 128/70 83.4 kg Dacia Acosta MD 11/26/2023 11:03 AM Signed Transitional Care Management [facility] Eligibility Documentation Program: Transitional Care Management Status: Pending (at least 2 unsuccessful call attempts) Start Date: 11/23/2023 Responsible Staff: Priscilla Del Angel, pulp plant supervisor date: 11/23/2023 (Program start) Date of initial [...] Pt here today for a 7 day [facility] Hospital follow up. Pt admitted into [facility] on 11/18/23 for abdominal pain and [...] year old female who presented to an [facility] emergency department yesterday, November 17, 2023, for further evaluation of abdominal pain and distention. Patient has known cirrhosis. Recently, she has been evaluated multiple times at [facility] for similar symptoms. Paracentesis has been [...] IV Rocephin tomorrow, patient had paracentesis in [facility] without any significant results, he had paracentesis yesterday results are undetermined. Therefore 1 more day of IV Rocephin day tomorrow and then she finished antibiotics, continuing meantime Taper down steroids and prophylactic PPI *Patient is started having bowel movement *Review blood work results unremarkable except for HANDH low but stable current hemoglobin (more content not included)... Normal [facility] Urinalysis complete panel (U )on 11-26-2023 Bacteria LM.HPF (Urine sed) [#/Area] Negative Normal Negative [facility] Comment on above: Order Comment: Speci men Type: URINE SPECIMENOrdering Facility: [facility] Address: [address] [place] [address] Performed By: #### 2 4356-8 ####[facility] LABCLIA [id number] [place] [address] [place] Bilirubin Ql (U) Negative Normal Negative [facility] Comment on above: Order Comment: Speci men Type: URINE SPECIMENOrdering Facility: [facility] Address: [address] [place] [address] Performed By: #### 2 4356-8 ####[facility] LABCLIA [id number] [place] [address] [place] CALCIUM OXALATE CRYSTALS (UA) Few Abnormal None Seen [facility] Comment on above: Order Comment: Speci men Type: URINE SPECIMENOrdering Facility: [facility] Address: [address] [place] [address] Performed By: #### 2 4356-8 ####[facility] LABCLIA [id number] [place] [address] [place] Clarity (Unsp spec) Cloudy Abnormal Clear [facility] Comment on above: Order Comment: Speci men Type: URINE SPECIMENOrdering Facility: [facility] Address: [address] [place] [address] Performed By: #### 2 4356-8 ####[facility] LABCLIA [id number] [place] [address] [place] Color (U) Dark Yellow Abnormal Yellow [facility] Comment on above: Order Comment: Speci men Type: URINE SPECIMENOrdering Facility: [facility] Address: [address] [place] [address] Performed By: #### 2 4356-8 ####[facility] LABCLIA [id number] [place] [address] [place] Epithelial cells LM.HPF (Urine sed) [#/Area] Few Normal [facility] Comment on above: Order Comment: Speci men Type: URINE SPECIMENOrdering Facility: [facility] Address: [address] [place] [address] Performed By: #### 2 4356-8 ####[facility] LABCLIA [id number] [place] [address] [place] Glucose Test strip (U) [Mass/Vol] Negative Normal Negative [facility] Comment on above: Order Comment: Speci men Type: URINE SPECIMENOrdering Facility: [facility] Address: [address] [place] [address] Performed By: #### 2 4356-8 ####[facility] LABCLIA [id number] [place] [address] [place] Hemoglobin Ql (U) 3+ Abnormal Negative [facility] Comment on above: Order Comment: Speci men Type: URINE SPECIMENOrdering Facility: [facility] Address: [address] [place] [address] Performed By: #### 2 4356-8 ####[facility] LABCLIA [id number] [place] [address] [place] Hyaline casts (Urine sed) [#/Area] 1-3 /LPF Abnormal 0 /LPF [facility] Comment on above: Order Comment: Speci men Type: URINE SPECIMENOrdering Facility: [facility] Address: [address] [place] [address] Performed By: #### 2 4356-8 ####[facility] LABCLIA [id number] [place] [address] [place] Ketones Ql (U) Negative Normal Negative [facility] Comment on above: Order Comment: Speci men Type: URINE SPECIMENOrdering Facility: [facility] Address: [address] [place] [address] Performed By: #### 2 4356-8 ####[facility] LABCLIA [id number] [place] [address] [place] Leukocyte esterase Test strip Ql (U) Trace Abnormal Negative [facility] Comment on above: Order Comment: Speci men Type: URINE SPECIMENOrdering Facility: [facility] Address: [address] [place] [address] Performed By: #### 2 4356-8 ####[facility] LABCLIA [id number] [place] [address] [place] Nitrite Ql (U) Negative Normal Negative [facility] Comment on above: Order Comment: Speci men Type: URINE SPECIMENOrdering Facility: [facility] Address: [address] [place] [address] Performed By: #### 2 4356-8 ####[facility] LABIA [id number] [place] [address] [place] pH (U) 6.0 [pH] Normal <8.5 [facility] Comment on above: Order Comment: Speci men Type: URINE SPECIMENOrdering Facility: [facility] Address: [address] [place] [address] Performed By: #### 2 4356-8 ####[facility] LABIA [id number] [place] [address] [place] Protein (U) [Mass/Vol] Trace Abnormal Negative Cl [facility] Comment on above: Order Comment: Speci men Type: URINE SPECIMENOrdering Facility: [facility] Address: [address] [place] [address] Performed By: #### 2 4356-8 ####[facility] LABIA [id number] [place] [address] [place] RBC LM.HPF (Urine sed) [#/Area] 11-20 /HPF Abnormal 0-2 /HPF [facility] Comment on above: Order Comment: Speci men Type: URINE SPECIMENOrdering Facility: [facility] Address: [address] [place] [address] Performed By: #### 2 4356-8 ####[facility] LABIA [id number] [place] [address] [place] Specific gravity (U) [Rel density] 1.027 Normal 1.005-1.030 [facility] Comment on above: Order Comment: Speci men Type: URINE SPECIMENOrdering Facility: [facility] Address: [address] [place] [address] Performed By: #### 2 4356-8 ####[facility] LABIA [id number] [place] [address] [place] Urobilinogen Ql (U) 1.0 EU/dL Normal 0.2-1.0 EU/dL Cl [facility] Comment on above: Order Comment: Speci men Type: URINE SPECIMENOrdering Facility: [facility] Address: [address] [place] [address] Performed By: #### 2 4356-8 ####[facility] LABIA [id number] [place] [address] [place] WBC LM.HPF (Urine sed) [#/Area] /[HPF] Abnormal 0-5 /HPF [facility] Comment on above: Order Comment: Speci men Type: URINE SPECIMENOrdering Facility: [facility] Address: [address] [place] [address] Performed By: #### 2 4356-8 ####[facility] LABIA [id number] [place] [address] [place] Urinalysis complete pnl [...] 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) ANTIBIOTIC INTERPRETATION SANDI STATUS REFERENCE RANGE Ampicillin R >8 F Susceptible <=8 , [...] , Intermediate >2 , Resistant >4 Abnormal [facility] Comment on above: Order Comment: Cole lamas Type: URINE SPECIMENOrdering Facility: [facility] Address: [address] [place] [address] Performed By: #### 2 4356-8 ####[facility] LABCLIA [id number] [place] [address] [place] Basic metabolic 2000 panelon 11-23-2023 Anion gap [Moles/Vol] mmol/L Low 5-16 [facility] Comment on above: Order Comment: Cole lamas Type: BLOOD SPECIMENOrdering Facility: [facility] Address: [address] [place] [address] Performed By: #### 2 4321-2, ####[facility] LABORATORYCLIA [id number] [place] [address] [place] Calcium [Mass/Vol] 9.3 mg/dL Normal 8.5-10.5 [facility] Comment on above: Order Comment: Cole lamas Type: BLOOD SPECIMENOrdering Facility: [facility] Address: [address] [place] [address] Performed By: #### 2 4321-2, ####[facility] LABORATORYCLIA [id number] [place] [id number] [place] Chloride [Moles/Vol] 107 mmol/L Normal 98-107 [facility] Comment on above: Order Comment: Speci men Type: BLOOD SPECIMENOrdering Facility: [facility] Address: [address] [place] [address] Performed By: #### 2 4322, ####[facility] LABORATORYCLIA [id number] [place] [address] [place] CO2 [Moles/Vol] 28 mmol/L Normal 21-32 [facility] Comment on above: Order Comment: Speci men Type: BLOOD SPECIMENOrdering Facility: [facility] Address: [address] [place] [address] Performed By: #### 2 4320-10, ####[facility] LABORATORYCLIA [id number] [address] STATES OF [facility] Creatinine [Mass/Vol] 0.78 mg/dL Normal 0.51-0.95 [facility] Comment on above: Order Comment: Speci men Type: BLOOD SPECIMENOrdering Facility: [facility] Address: [address] [place] [address] Result Comment: Tamie ents receiving either N-Acetylcysteine (NAC) or Metamizole prior to venipuncture, may have falsely depressed results. Performed By: #### 2 4320-10, ####[facility] LABORATORYCLIA [id number] [address] STATES OF [facility] Creatinine and Glomerular filtration rate.predicted panel (S/P/Bld) 93 mL/min/1.73m??? Normal >=60 [facility] Comment on above: Order Comment: Speci men Type: BLOOD SPECIMENOrdering Facility: [facility] Address: [address] [place] [address] Result Comment: Connie mated Glomerular Filtration Rate [...] reflect actual GFR. Performed By: #### 2 432-, ####[facility] LABORATORYCLIA [id number] [place] [address] [place] Glucose [Mass/Vol] 95 mg/dL Normal 70-100 [facility] Comment on above: Order Comment: Cole lamas Type: BLOOD SPECIMENOrdering Facility: [facility] Address: [address] [place] [address] Result Comment: The [place] [employer] Association (ADA) provides guidance for cutoff [...] Standards of Medical Care in Diabetes 2016, [place] [employer]. Diabetes Care. 2016.39(Suppl 1). Results may be falsely elevated after the administration of Sulfapyridine. Results may be falsely depressed after the administration of Sulfasalazine. Performed By: #### 2 43209-27, ####[facility] LABORATORYCLIA [id number] [place] [id number] [place] Potassium [Moles/Vol] 4.2 mmol/L Normal 3.5-5.1 [facility] Comment on above: Order Comment: Cole lamas Type: BLOOD SPECIMENOrdering Facility: [facility] Address: [address] [place] [address] Performed By: #### 2 432-, ####[facility] LABORATORYCLIA [id number] [place] [address] [place] Sodium [Moles/Vol] 137 mmol/L Normal 136-145 [facility] Comment on above: Order Comment: Speci men Type: BLOOD SPECIMENOrdering Facility: [facility] Address: [address] [place] [address] Performed By: #### 2 4321-2, 22955-0 ####[facility] LABORATORYCLIA [id number] [place] [id number] [place] Urea nitrogen [Mass/Vol] 18 mg/dL Normal 7-26 [facility] Comment on above: Order Comment: Speci men Type: BLOOD SPECIMENOrdering Facility: [facility] Address: [address] [place] [address] Performed By: #### 2 4321-2, ####[facility] LABORATORYCLIA [id number] [place] [address] [place] CBC W Auto Differential pane l (Bld)on 11-23-2023 Anisocytosis Ql (Bld) Present Normal [facility] Comment on above: Order Comment: Speci men Type: BLOOD SPECIMENOrdering Facility: [facility] Address: [address] [place] [address] Performed By: #### 5 7021-8 ####[facility] LABORATORYCLIA [id number] [place] [address] [place] Band form neutrophils/100 WBC (Bld) 1.0 % Normal [facility] Comment on above: Order Comment: Speci men Type: BLOOD SPECIMENOrdering Facility: [facility] Address: [address] [place] [address] Performed By: #### 5 7021-8 ####[facility] LABORATORYCLIA [id number] [place] [address] [place] Basophils (Bld) [#/Vol] 0.00 10*3/uL Normal <0.11 [facility] Comment on above: Order Comment: Speci men Type: BLOOD SPECIMENOrdering Facility: [facility] Address: [address] [place] [address] Performed By: #### 5 7021-8 ####[facility] LABORATORYCLIA [id number] [place] [address] [place] Basophils/100 WBC (Bld) 0.0 % Normal [facility] Comment on above: Order Comment: Speci men Type: BLOOD SPECIMENOrdering Facility: [facility] Address: [address] [place] [address] Performed By: #### 5 7021-8 ####[facility] LABORATORYCLIA [id number] [place] [address] [place] [facility] [place] Differential cell count method Nom (Bld) Manual Normal [facility] Comment on above: Order Comment: Speci men Type: BLOOD SPECIMENOrdering Facility: [facility] Address: [address] [place] [address] Performed By: #### 5 7021-8 ####[facility] LABORATORYCLIA [id number] [place] [address] [place] Eosinophils (Bld) [#/Vol] 0.13 10*3/uL Normal <0.46 [facility] Comment on above: Order Comment: Speci men Type: BLOOD SPECIMENOrdering Facility: [facility] Address: [address] [place] [address] Performed By: #### 5 7021-8 ####[facility] LABORATORYCLIA [id number] [address] [place] Eosinophils/100 WBC (Bld) 1.0 % Normal [facility] Comment on above: Order Comment: Speci men Type: BLOOD SPECIMENOrdering Facility: [facility] Address: [address] [place] [address] Performed By: #### 5 7021-8 ####[facility] LABORATORYCLIA [id number] [address] STATES [place] Erythrocyte distribution width (RBC) [Ratio] 26.2 % High 11.5-15.0 [facility] Comment on above: Order Comment: Speci men Type: BLOOD SPECIMENOrdering Facility: [facility] Address: [address] [place] [address] Performed By: #### 5 7021-8 ####[facility] LABORATORYCLIA [id number] [address] STATES [place] Hematocrit (Bld) [Volume fraction] 27.9 % Low 36.0-46.0 [facility] Comment on above: Order Comment: Speci men Type: BLOOD SPECIMENOrdering Facility: [facility] Address: [address] [place] [address] Performed By: #### 5 7021-8 ####[facility] LABORATORYCLIA [id number] [place] [address] [place] Hemoglobin (Bld) [Mass/Vol] 9.0 g/dL Low 11.5-15.5 [facility] Comment on above: Order Comment: Speci men Type: BLOOD SPECIMENOrdering Facility: [facility] Address: [address] [place] [address] Performed By: #### 5 7021-8 ####[facility] LABORATORYCLIA [id number] [place] [address] [place] Lymphocytes (Bld) [#/Vol] 2.53 10*3/uL Normal 1.00-4.00 [facility] Comment on above: Order Comment: Speci men Type: BLOOD SPECIMENOrdering Facility: [facility] Address: [address] [place] [address] Performed By: #### 5 7021-8 ####[facility] LABORATORYCLIA [id number] [address] STATES [place] Lymphocytes/100 WBC (Bld) 19.0 % Normal [facility] Comment on above: Order Comment: Speci men Type: BLOOD SPECIMENOrdering Facility: [facility] Address: [address] [place] [address] Performed By: #### 5 7021-8 ####[facility] LABORATORYCLIA [id number] [place] [id number] [place] MCH (RBC) [Entitic mass] 24.3 pg Low 26.0-34.0 [facility] Comment on above: Order Comment: Speci men Type: BLOOD SPECIMENOrdering Facility: [facility] Address: [address] [place] [address] Performed By: #### 5 7021-8 ####[facility] LABORATORYCLIA [id number] [address] STATES [place] MCHC (RBC) [Mass/Vol] 32.3 g/dL Normal 30.5-36.0 [facility] Comment on above: Order Comment: Speci men Type: BLOOD SPECIMENOrdering Facility: [facility] Address: [address] [place] [address] Performed By: #### 5 7021-8 ####[facility] LABORATORYCLIA [id number] [place] [address] [place] MCV (RBC) [Entitic vol] 75.4 fL Low 80.0-100.0 [facility] Comment on above: Order Comment: Speci men Type: BLOOD SPECIMENOrdering Facility: [facility] Address: [address] [place] [address] Performed By: #### 5 7021-8 ####[facility] LABORATORYCLIA [id number] [address] [place] Monocytes (Bld) [#/Vol] 1.33 10*3/uL High <0.87 [facility] Comment on above: Order Comment: Speci men Type: BLOOD SPECIMENOrdering Facility: [facility] Address: [address] [place] [address] Performed By: #### 5 7021-8 ####[facility] LABORATORYCLIA [id number] [address] [place] Monocytes/100 WBC (Bld) 10.0 % Normal [facility] Comment on above: Order Comment: Speci men Type: BLOOD SPECIMENOrdering Facility: [facility] Address: [address] [place] [address] Performed By: #### 5 7021-8 ####[facility] LABORATORYCLIA [id number] [place] [address] [place] Neutrophils (Bld) [#/Vol] 9.31 10*3/uL High 1.45-7.50 [facility] Comment on above: Order Comment: Speci men Type: BLOOD SPECIMENOrdering Facility: [facility] Address: [address] [place] [address] Performed By: #### 5 7021-8 ####[facility] LABORATORYCLIA [id number] [place] [address] [place] Neutrophils/100 WBC (Bld) 69.0 % Normal [facility] Comment on above: Order Comment: Speci men Type: BLOOD SPECIMENOrdering Facility: [facility] Address: [address] [place] [address] Performed By: #### 5 7021-8 ####[facility] LABORATORYCLIA [id number] [address] STATES [place] Nucleated RBC (Bld) [#/Vol] 10*3/uL Normal <0.01 [facility] Comment on above: Order Comment: Speci men Type: BLOOD SPECIMENOrdering Facility: [facility] Address: [address] [place] [address] Performed By: #### 5 7021-8 ####[facility] LABORATORYCLIA [id number] [place] [address] [place] Nucleated RBC/100 WBC (Bld) [Ratio] 0.0 /100 WBC Normal [facility] Comment on above: Order Comment: Speci men Type: BLOOD SPECIMENOrdering Facility: [facility] Address: [address] [place] [address] Performed By: #### 5 7021-8 ####[facility] LABORATORYCLIA [id number] [place] [address] [place] Ovalocytes LM Ql (Bld) Few Normal [facility] Comment on above: Order Comment: Speci men Type: BLOOD SPECIMENOrdering Facility: [facility] Address: [address] [place] [address] Performed By: #### 5 7021-8 ####[facility] LABORATORYCLIA [id number] [place] [address] [place] Platelet mean volume (Bld) [Entitic vol] 10.0 fL Normal 9.0-12.7 [facility] Comment on above: Order Comment: Speci men Type: BLOOD SPECIMENOrdering Facility: [facility] Address: [address] [place] [address] Performed By: #### 5 7021-8 ####[facility] LABORATORYCLIA [id number] [place] [address] [place] Platelets (Bld) [#/Vol] 107 10*3/uL Low 150-400 [facility] Comment on above: Order Comment: Speci men Type: BLOOD SPECIMENOrdering Facility: [facility] Address: [address] [place] [address] Result Comment: No c lot detected. Performed By: #### 5 7021-8 ####[facility] LABORATORYCLIA [id number] [place] [address] [place] Platelets Estimate (Bld) [#/Vol] Decreased Normal [facility] Comment on above: Order Comment: Speci men Type: BLOOD SPECIMENOrdering Facility: [facility] Address: [address] [place] [address] Performed By: #### 5 7021-8 ####[facility] LABORATORYCLIA [id number] [place] [id number] [place] Polychromasia LM Ql (Bld) Slight Normal [facility] Comment on above: Order Comment: Speci men Type: BLOOD SPECIMENOrdering Facility: [facility] Address: [address] [place] [address] Performed By: #### 5 7021-8 ####[facility] LABORATORYCLIA [id number] [place] [address] [place] RBC (Bld) [#/Vol] 3.70 10*6/uL Low 3.90-5.20 [facility] Comment on above: Order Comment: Speci men Type: BLOOD SPECIMENOrdering Facility: [facility] Address: [address] [place] [address] Performed By: #### 5 7021-8 ####[facility] LABORATORYCLIA [id number] [place] [id number] [facility] RED CELL MORPH Reviewed: see result s of individual morphologies Normal [facility] Comment on above: Order Comment: Speci men Type: BLOOD SPECIMENOrdering Facility: [facility] Address: [address] [place], [place] [address] Performed By: #### 5 7021-8 ####[facility] LABORATORYCLIA [id number] [place] [id number] [facility] OF [place] WBC (Bld) [#/Vol] 13.30 10*3/uL High 3.70-11.00 [facility] Comment on above: Order Comment: Speci men Type: BLOOD SPECIMENOrdering Facility: [facility] Address: [address] [place] [address] Performed By: #### 5 7021-8 ####[facility] LABORATORYCLIA [id number] [place] [id number] [facility] CNDSon 11-23-2023 CNDS HNO ID: [id number] Author: JEROME AMAYA DO Service: Hospital Medicine [...] year old female who presented to an [facility] emergency department yesterday, November 17, 2023, for further evaluation of abdominal pain and distention. Patient has known cirrhosis. Recently, she has been evaluated multiple times at [facility] for similar symptoms. Paracentesis has been [...] IV Rocephin tomorrow, patient had paracentesis in [facility] without any significant results, he had [...] =CHILDHOOD Bupropion (more content not included)... Normal [facility] Magnesium SerPl-mCncon 11-23 Magnesium [Mass/Vol] 1.7 mg/dL Normal 1.6-2.6 [facility] Comment on above: Order Comment: Speci cydney Type: BLOOD SPECIMENOrdering Facility: [facility] Address: [address] [place] [address] Performed By: #### 2 4321-2, 58551-4 ####[facility] LABORATORYCLIA [id number] [place] [address] [place] Basic metabolic 2000 panelon 11-22-2023 Anion gap [Moles/Vol] 3 mmol/L Low 5-16 [facility] Comment on above: Order Comment: Speci men Type: ARTERIAL BLOOD SPECIMEN [facility] Address: [address] [place] [address] Performed By: #### A LLBG #### [facility]IR[facility]ORY THERAP[facility] CLIA [id number] [address] [place] [address] [place] Calcium [Mass/Vol] 9.7 mg/dL Normal 8.5-10.5 [facility] Comment on above: Order Comment: Speci men Type: ARTERIAL BLOOD SPECIMEN [facility] Address: [address] [place] [address] Performed By: #### A LLBG #### [facility] CLIA [id number] [address] [place] [address] [place] Chloride [Moles/Vol] 105 mmol/L Normal 98-107 [facility] Comment on above: Order Comment: Speci men Type: ARTERIAL BLOOD SPECIMEN [facility] Address: [address] [place] [address] Performed By: #### A LLBG #### [facility]IR[facility] THERAP[facility] CLIA [id number] [address] [place] [address] [place] CO2 [Moles/Vol] 28 mmol/L Normal 21-32 [facility] Comment on above: Order Comment: Speci men Type: ARTERIAL BLOOD SPECIMEN [facility] Address: [address] [place] [address] Performed By: #### A LLBG #### [facility] THERAP[facility] CLIA [id number] [address] [place] [address] [place] Creatinine [Mass/Vol] 0.81 mg/dL Normal 0.51-0.95 [facility] Comment on above: Order Comment: Speci men Type: ARTERIAL BLOOD SPECIMEN [facility] Address: [address] [place] [address] Result Comment: Tamie ents receiving either N-Acetylcysteine (NAC) or Metamizole prior to venipuncture, may have falsely depressed results. Performed By: #### A LLBG #### [facility] CLIA [id number] [address] [place] [address] [place] Creatinine and Glomerular filtration rate.predicted panel (S/P/Bld) 89 mL/min/1.73m??? Normal >=60 [facility] Comment on above: Order Comment: Speci men Type: ARTERIAL BLOOD SPECIMEN [facility] Address: [address] [place] [id number] Result Comment: Connie mated Glomerular Filtration Rate [...] GFR. Performed By: #### A LLBG #### [facility] RES[facility]IR[facility]ORY THERAP[facility] CLIA [id number] [address] [place] [address] [place] Glucose [Mass/Vol] 92 mg/dL Normal 70-100 [facility] Comment on above: Order Comment: Cole men Type: ARTERIAL BLOOD SPECIMEN [facility] Address: [address] [place] [address] Result Comment: The [place] [employer] Association (ADA) provides guidance for cutoff [...] Standards of Medical Care in Diabetes 2016, [place] [employer]. Diabetes Care. 2016.39(Suppl 1). Results may be falsely elevated after the administration of Sulfapyridine. Results may be falsely depressed after the administration of Sulfasalazine. Performed By: #### A LLBG #### [facility] THERAP[facility] CLIA [id number] [address] [place] [address] [place] Potassium [Moles/Vol] 4.4 mmol/L Normal 3.5-5.1 [facility] Comment on above: Order Comment: Cole lamas Type: ARTERIAL BLOOD SPECIMEN [facility] Address: [address] [place] [id number] Performed By: #### A LLBG #### [facility] CLIA [id number] [address] [place] [address] [place] Sodium [Moles/Vol] 136 mmol/L Normal 136-145 [facility] Comment on above: Order Comment: Speci men Type: ARTERIAL BLOOD SPECIMEN [facility] Address: [address] [place] [address] Performed By: #### A LLBG #### [facility] THER[facility] CLIA [id number] [address] [place] [address] [place] Urea nitrogen [Mass/Vol] 18 mg/dL Normal 7-26 [facility] Comment on above: Order Comment: Speci men Type: ARTERIAL BLOOD SPECIMEN [facility] Address: [address] [place] [address] Performed By: #### A LLBG #### [facility] RES[facility] THERAP[facility] CLIA [id number] [address] [place] [address] [place] CBC W Auto Differential pane l (Bld)on 11-22-2023 Anisocytosis Ql (Bld) Present Normal [facility] Comment on above: Order Comment: Speci men Type: ARTERIAL BLOOD SPECIMEN [facility] Address: [address] [place] [address] Performed By: #### A LLBG #### [facility] THER[facility] CLIA [id number] [address] [place] [address] [place] Basophils (Bld) [#/Vol] 0.00 10*3/uL Normal <0.11 [facility] Comment on above: Order Comment: Speci men Type: ARTERIAL BLOOD SPECIMEN [facility] Address: [address] [place] [address] Performed By: #### A LLBG #### [facility] CLIA [id number] [address] [place] [address] [place] Basophils/100 WBC (Bld) 0.0 % Normal [facility] Comment on above: Order Comment: Speci men Type: ARTERIAL BLOOD SPECIMEN [facility] Address: [address] [place] [address] Performed By: #### A LLBG #### [facility] RESPIRATORY THERAP[facility] CLIA [id number] [address] [place] [address] [place] Differential cell count method Nom (Bld) Manual Normal [facility] Comment on above: Order Comment: Speci men Type: ARTERIAL BLOOD SPECIMEN [facility] Address: [address] [place] [address] Performed By: #### A LLBG #### [facility]PIR[facility] THERAP[facility] CLIA [id number] [address] [place] [address] [place] DIMORPHIC POPULATION Present Normal [facility] Comment on above: Order Comment: Speci men Type: ARTERIAL BLOOD SPECIMEN [facility] Address: [address] [place] [address] Performed By: #### A LLBG #### [facility]IRATORY THERAP[facility] CLIA [id number] [address] [place] [address] [place] Eosinophils (Bld) [#/Vol] 0.00 10*3/uL Normal <0.46 [facility] Comment on above: Order Comment: Speci men Type: ARTERIAL BLOOD SPECIMEN [facility] Address: [address] [place] [address] Performed By: #### A LLBG #### [facility] RESPIRAT[facility] THERAP[facility] CLIA [id number] [address] [place] [address] [place] Eosinophils/100 WBC (Bld) 0.0 % Normal [facility] Comment on above: Order Comment: Speci men Type: ARTERIAL BLOOD SPECIMEN [facility] Address: [address] [place] [address] Performed By: #### A LLBG #### [facility] RES[facility]IRATORY THERAP[facility] CLIA [id number] [address] [place] [address] [place] Erythrocyte distribution width (RBC) [Ratio] 26.1 % High 11.5-15.0 [facility] Comment on above: Order Comment: Speci men Type: ARTERIAL BLOOD SPECIMEN [facility] Address: [address] [place] [address] Performed By: #### A LLBG #### [facility] RES[facility]IRATORY THERAP[facility] CLIA [id number] [address] [place] [address] [place] Hematocrit (Bld) [Volume fraction] 30.3 % Low 36.0-46.0 [facility] Comment on above: Order Comment: Speci men Type: ARTERIAL BLOOD SPECIMEN [facility] Address: [address] [place] [address] Performed By: #### A LLBG #### [facility] RES[facility]ATORY THERAP[facility] CLIA [id number] [address] [place] [address] [place] Hemoglobin (Bld) [Mass/Vol] 9.5 g/dL Low 11.5-15.5 [facility] Comment on above: Order Comment: Speci men Type: ARTERIAL BLOOD SPECIMEN [facility] Address: [address] [place] [address] Performed By: #### A LLBG #### [facility] [place] [id number] [address] [place] [address] [place] Lymphocytes (Bld) [#/Vol] 2.01 10*3/uL Normal 1.00-4.00 [facility] Comment on above: Order Comment: Speci men Type: ARTERIAL BLOOD SPECIMEN [facility] Address: [address] [place] [address] Performed By: #### A LLBG #### [facility] RESPIRATORY THERAP[facility] CLIA [id number] [address] [place] [address] [place] Lymphocytes/100 WBC (Bld) 16.0 % Normal [facility] Comment on above: Order Comment: Speci men Type: ARTERIAL BLOOD SPECIMEN Ordering Facility: [facility] Address: [address] [place] [address] Performed By: #### A LLBG #### [facility] CLIA [id number] [address] [place] [address] [place] MCH (RBC) [Entitic mass] 24.4 pg Low 26.0-34.0 [facility] Comment on above: Order Comment: Speci men Type: ARTERIAL BLOOD SPECIMEN Ordering Facility: [facility] Address: [address] [place] [address] Performed By: #### A LLBG #### [facility] CLIA [id number] [address] [place] [address] [place] MCHC (RBC) [Mass/Vol] 31.4 g/dL Normal 30.5-36.0 [facility] Comment on above: Order Comment: Speci men Type: ARTERIAL BLOOD SPECIMEN Ordering Facility: [facility] Address: [address] [place] [address] Performed By: #### A LLBG #### [facility] CLIA [id number] [address] [place] [address] [place] MCV (RBC) [Entitic vol] 77.7 fL Low 80.0-100.0 [facility] Comment on above: Order Comment: Speci men Type: ARTERIAL BLOOD SPECIMEN Ordering Facility: [facility] Address: [address] [place] [address] Performed By: #### A LLBG #### [facility] CLIA [id number] [address] [place] [address] [place] Monocytes (Bld) [#/Vol] 0.88 10*3/uL High <0.87 [facility] Comment on above: Order Comment: Speci men Type: ARTERIAL BLOOD SPECIMEN Ordering Facility: [facility] Address: [address] [place] [address] Performed By: #### A LLBG #### [facility] CLIA [id number] [address] [place] [address] [place] Monocytes/100 WBC (Bld) 7.0 % Normal [facility] Comment on above: Order Comment: Speci men Type: ARTERIAL BLOOD SPECIMEN Ordering Facility: [facility] Address: [address] [place] [address] Performed By: #### A LLBG #### [facility] CLIA [id number] [address] [place] [address] [place] MYELO% 1.0 % Normal [facility] Comment on above: Order Comment: Speci men Type: ARTERIAL BLOOD SPECIMEN Ordering Facility: [facility] Address: [address] [place] [address] Performed By: #### A LLBG #### [facility] CLIA [id number] [address] [place] [address] [place] Neutrophils (Bld) [#/Vol] 9.57 10*3/uL High 1.45-7.50 [facility] Comment on above: Order Comment: Speci men Type: ARTERIAL BLOOD SPECIMEN Ordering Facility: [facility] Address: [address] [place] [address] Performed By: #### A LLBG #### [facility] CLIA [id number] [address] [place] [address] [place] Neutrophils.hypersegme nted LM Ql (Bld) Occasional Normal [facility] Comment on above: Order Comment: Speci men Type: ARTERIAL BLOOD SPECIMEN Ordering Facility: [facility] Address: [address] [place] [address] Performed By: #### A LLBG #### [facility] CLIA [id number] [address] [place] [address] [place] Neutrophils/100 WBC (Bld) 76.0 % Normal [facility] Comment on above: Order Comment: Speci men Type: ARTERIAL BLOOD SPECIMEN Ordering Facility: [facility] Address: [address] [place] [address] Performed By: #### A LLBG #### [facility] CLIA [id number] [address] [place] [address] [place] Nucleated RBC (Bld) [#/Vol] 10*3/uL Normal <0.01 [facility] Comment on above: Order Comment: Speci men Type: ARTERIAL BLOOD SPECIMEN Ordering Facility: [facility] Address: [address] [place] [address] Performed By: #### A LLBG #### [facility] CLIA [id number] [address] [place] [address] [place] Nucleated RBC/100 WBC (Bld) [Ratio] 0.0 /100 WBC Normal [facility] Comment on above: Order Comment: Speci men Type: ARTERIAL BLOOD SPECIMEN Ordering Facility: [facility] Address: [address] [place] [address] Performed By: #### A LLBG #### [facility] CLIA [id number] [address] [place] [address] [place] Ovalocytes LM Ql (Bld) Few Normal [facility] Comment on above: Order Comment: Speci men Type: ARTERIAL BLOOD SPECIMEN Ordering Facility: [facility] Address: [address] [place] [address] Performed By: #### A LLBG #### [facility] RESPIR[facility] THERAP[facility] CLIA [id number] [address] [place] [address] [place] Platelet mean volume (Bld) [Entitic vol] 9.7 fL Normal 9.0-12.7 [facility] Comment on above: Order Comment: Speci men Type: ARTERIAL BLOOD SPECIMEN Ordering Facility: [facility] Address: [address] [place] [address] Performed By: #### A LLBG #### [facility] RESPIRATORY THERAPY CLIA [id number] [address] [place] [address] OF [place] Platelets (Bld) [#/Vol] 95 10*3/uL Low 150-400 [facility] Comment on above: Order Comment: Speci men Type: ARTERIAL BLOOD SPECIMEN Ordering Facility: [facility] Address: [address] [place] [address] Result Comment: No c lot detected. Performed By: #### A LLBG #### [facility] CLIA [id number] [address] [place] [address] [place] Platelets Estimate (Bld) [#/Vol] Decreased Normal [facility] Comment on above: Order Comment: Speci men Type: ARTERIAL BLOOD SPECIMEN Ordering Facility: [facility] Address: [address] [place] [address] Performed By: #### A LLBG #### [facility] CLIA [id number] [address] [place] [address] [place] Polychromasia LM Ql (Bld) Slight Normal [facility] Comment on above: Order Comment: Speci men Type: ARTERIAL BLOOD SPECIMEN Ordering Facility: [facility] Address: [address] [place] [address] Performed By: #### A LLBG #### [facility] RESPIRATORY THERAP[facility] CLIA [id number] [address] [place] [address] RBC (Bld) [#/Vol] 3.90 10*6/uL Normal 3.90-5.20 [facility] Comment on above: Order Comment: Speci men Type: ARTERIAL BLOOD SPECIMEN Ordering Facility: [facility] Address: [address] [place] [address] Performed By: #### A LLBG #### [facility] RESPIRATORY THERAPY CLIA [id number] [address] [place] [address] RED CELL MORPH Reviewed: see result s of individual morphologies Normal [facility] Comment on above: Order Comment: Speci men Type: ARTERIAL BLOOD SPECIMEN Ordering Facility: [facility] Address: [address] [place] [address] Performed By: #### A LLBG #### [facility] RESPIRATORY THERAPY CLIA [id number] [address] [place] [address] WBC (Bld) [#/Vol] 12.59 10*3/uL High 3.70-11.00 [facility] Comment on above: Order Comment: Speci men Type: ARTERIAL BLOOD SPECIMEN Ordering Facility: [facility] Address: [address] [place] [address] Performed By: #### A LLBG #### [facility] RESPIRATORY THERAPY CLIA [id number] [address] [place] [address] CONSULT PROGon 11-22-2023 CONSULT PROG HNO ID: [id number] Author: SOHAIL WILLETT MD Service: Infectious Disease Author Type: Physician [...] 92 CA 9.7 MG 1.9 ANION 3* Impression/Recommendati ons Principal Problem: Pneumonia Cirrhosis, ascites Possible SBP [...] Case discussed with Dr. Hernandez. SIGNATURE: Sohail Willett MD PATIENT NAME: Carolina Hightower DATE: November 22, 2023 TIME: 9:57 AM Normal [facility] Magnesium SerPl-mCncon 11-22 Magnesium [Mass/Vol] 1.9 mg/dL Normal 1.6-2.6 [facility] Comment on above: Order Comment: Speci men Type: ARTERIAL BLOOD SPECIMEN Ordering Facility: [facility] Address: [address] [place] [address] Performed By: #### A LLBG #### [facility] RESPIRATORY THERAPY CLIA [id number] [address] [place] [address] OF [facility] BF MANUAL DIFFon 11-21-2023 DIF TTL, BODY FLUID 100 cells counted Normal [facility] Comment on above: Order Comment: Speci men Type: ARTERIAL BLOOD SPECIMEN Ordering Facility: [facility] Address: [address] [place] [address] Performed By: #### A LLBG #### [facility] RESPIRATORY THERAPY CLIA [id number] [address] [place] [address] [place] LYMPH%, BF 67 % High 18-36 [facility] Comment on above: Order Comment: Speci men Type: ARTERIAL BLOOD SPECIMEN Ordering Facility: [facility] Address: [address] [place] [address] Performed By: #### A LLBG #### [facility] CLIA [id number] [address] [place] [address] MONO% BF 18 % Normal [facility] Comment on above: Order Comment: Speci men Type: ARTERIAL BLOOD SPECIMEN Ordering Facility: [facility] Address: [address] [place] [address] Performed By: #### A LLBG #### [facility] CLIA [id number] [address] [place] [address] NEUT%, BF 15 % High 0-1 [facility] Comment on above: Order Comment: Speci men Type: ARTERIAL BLOOD SPECIMEN Ordering Facility: [facility] Address: [address] [place] [address] Performed By: #### A LLBG #### [facility] CLIA [id number] [address] [place] [address] BF STAFF REVIEW (LAB ORDER)o n 11-21-2023 BF REVIEW Reviewed by Donny Miguel DO [facility] Comment on above: Order Comment: Speci men Type: ARTERIAL BLOOD SPECIMEN Ordering Facility: [facility] Address: [address] [place] [address] Performed By: #### A LLBG #### [facility] CLIA [id number] [address] [place] [address] BF STAFF COMMENTS [facility] Comment on above: Order Comment: Speci men Type: ARTERIAL BLOOD SPECIMEN Ordering Facility: [facility] Address: [address] [place] [address] Result Comment: CYTO PREP INTERPRETATION: Mixed inflammatory cells including histiocytes/macrophages and mesothelial cells. 11/22/2023. Performed By: #### A LLBG #### [facility] CLIA [id number] OF [place] BODY FLUID CELL COUNTon 02-2 Clarity (Unsp spec) Clear Normal Clear [facility] Comment on above: Order Comment: Speci men Type: ARTERIAL BLOOD SPECIMEN Ordering Facility: [facility] Address: [address] [place] [address] Performed By: #### A LLBG #### [facility] CLIA [id number] [address] [place] [address] [place] Color (Body fld) Yellow Normal Yellow [facility] Comment on above: Order Comment: Speci men Type: ARTERIAL BLOOD SPECIMEN Ordering Facility: [facility] Address: [address] [place] [address] Performed By: #### A LLBG #### [facility] RESPIRATORY THERAPY CLIA [id number] [address] [place] [address] RBC Manual cnt (Body fld) [#/Vol] <2000 Normal <2000 [facility] Comment on above: Order Comment: Speci men Type: ARTERIAL BLOOD SPECIMEN Ordering Facility: [facility] Address: [address] [place] [address] Performed By: #### A LLBG #### [facility] CLIA [id number] [address] [place] [address] [place] Specimen source Nom (Body fld) ASCITES FLUID Normal [facility] Comment on above: Order Comment: Speci men Type: ARTERIAL BLOOD SPECIMEN Ordering Facility: [facility] Address: [address] [place] [address] Performed By: #### A LLBG #### [facility] CLIA [id number] [address] [place] [address] OF [place] WBC Manual cnt (Body fld) [#/Vol] 433 /uL Normal <1000 [facility] Comment on above: Order Comment: Speci men Type: ARTERIAL BLOOD SPECIMEN Ordering Facility: [facility] Address: [address] [place] [address] Performed By: #### A LLBG #### [facility] CLIA [id number] [address] [place] [address] OF [place] Bacteria Fld Culton 11-21-19 24 Bacteria identified Cx Nom (Body fld) CULTURE, BODY FLD: No growth 5 days GRAM STAIN: Moderate Polymorphonuclear leukocytes No organisms seen Normal [facility] Comment on above: Performed By: #### 3 2693-4 #### [facility] CLIA [id number] [address] [place], [place] [address] [place] Basic metabolic 2000 panelon 11-21-2023 Anion gap [Moles/Vol] 4 mmol/L Low 5-16 [facility] Comment on above: Order Comment: Speci men Type: BLOOD SPECIMEN Ordering Facility: [facility] Address: [address] [place] [address] Performed By: #### 2 4323-8, #### [facility] CLIA [id number] [address] [place] [address] [place] Calcium [Mass/Vol] 9.4 mg/dL Normal 8.5-10.5 [facility] Comment on above: Order Comment: Speci men Type: BLOOD SPECIMEN Ordering Facility: [facility] Address: [address] [place] [address] Performed By: #### 2 4323-8, #### [facility] CLIA [id number] [address] [place] [address] [place] Chloride [Moles/Vol] 106 mmol/L Normal 98-107 [facility] Comment on above: Order Comment: Speci men Type: BLOOD SPECIMEN Ordering Facility: [facility] Address: [address] [place] [address] Performed By: #### 2 4323-8, #### [facility] CLIA [id number] [address] [place], [place] [address] [place] CO2 [Moles/Vol] 27 mmol/L Normal 21-32 [facility] Comment on above: Order Comment: Speci men Type: BLOOD SPECIMEN Ordering Facility: [facility] Address: [address] [place] [address] Performed By: #### 2 4323-8, #### [facility] CLIA [id number] [address] [place] [address] [place] Creatinine [Mass/Vol] 0.73 mg/dL Normal 0.51-0.95 [facility] Comment on above: Order Comment: Cole lamas Type: BLOOD SPECIMEN Ordering Facility: [facility] Address: [address] [place] [address] Result Comment: Tamie ents receiving either N-Acetylcysteine (NAC) or Metamizole prior to venipuncture, may have falsely depressed results. Performed By: #### 2 4323-8, #### [facility] CLIA [id number] [address] [place] [address] Creatinine and Glomerular filtration rate.predicted panel (S/P/Bld) 100 mL/min/1.73m??? Normal >=60 [facility] Comment on above: Order Comment: Cole lamas Type: BLOOD SPECIMEN Ordering Facility: [facility] Address: [address] [place] [address] Result Comment: Connie mated Glomerular Filtration Rate [...] GFR. Performed By: #### 2 4323-8, #### [facility] CLIA [id number] [address] [place], [place] [address] [place] Glucose [Mass/Vol] 133 mg/dL High 70-100 [facility] Comment on above: Order Comment: Cole lamas Type: BLOOD SPECIMEN Ordering Facility: [facility] Address: [address] [place] [address] Result Comment: The [place] [employer] (ADA) provides guidance for cutoff [...] Standards of Medical Care in Diabetes 2016, [place] [employer]. Diabetes Care. 2016.39(Suppl 1). Results may be falsely elevated after the administration of Sulfapyridine. Results may be falsely depressed after the administration of Sulfasalazine. Performed By: #### 2 432-8, #### [facility] CLIA [id number] [address] [place] [address] [place] Potassium [Moles/Vol] 4.6 mmol/L Normal 3.5-5.1 [facility] Comment on above: Order Comment: Yeseniai cydney Type: BLOOD SPECIMEN Ordering Facility: [facility] Address: [address] [place] [address] Performed By: #### 2 43212-01, #### [facility] CLIA [id number] [address] [place] [address] [place] Sodium [Moles/Vol] 137 mmol/L Normal 136-145 [facility] Comment on above: Order Comment: Yeseniai cydney Type: BLOOD SPECIMEN Ordering Facility: [facility] Address: [address] [place] [address] Performed By: #### 2 4323-04, #### [facility] CLIA [id number] [address] [place] [address] [place] Urea nitrogen [Mass/Vol] 21 mg/dL Normal 7-26 [facility] Comment on above: Order Comment: Yeseniai cydney Type: BLOOD SPECIMEN Ordering Facility: [facility] Address: [address] [place] [address] Performed By: #### 2 4323-8, #### [facility] CLIA [id number] [address] [place] [address] [place] CBC W Auto Differential pane l (Bld)on 11-21-2023 Anisocytosis Ql (Bld) Present Normal [facility] Comment on above: Order Comment: Speci men Type: BLOOD SPECIMEN Ordering Facility: [facility] Address: [address] [place] [address] Performed By: #### 2 4323-8, #### [facility] CLIA [id number] [address] [place] [address] [place] Band form neutrophils/100 WBC (Bld) 2.0 % Normal [facility] Comment on above: Order Comment: Speci men Type: BLOOD SPECIMEN Ordering Facility: [facility] Address: [address] [place] [address] Performed By: #### 2 4328, #### [facility] CLIA [id number] [address] [place] [address] [facility] OF [place] Basophils (Bld) [#/Vol] 0.00 10*3/uL Normal <0.11 [facility] Comment on above: Order Comment: Speci men Type: BLOOD SPECIMEN Ordering Facility: [facility] Address: [address] [place] [address] Performed By: #### 2 8, #### [facility] CLIA [id number] [address] [place] [address] OF [place] Basophils/100 WBC (Bld) 0.0 % Normal [facility] Comment on above: Order Comment: Speci men Type: BLOOD SPECIMEN Ordering Facility: [facility] Address: [address] [place] [address] Performed By: #### 2 4323-8, #### [facility] CLIA [id number] [address] [place] [address] [place] [facility] OF [place] Differential cell count method Nom (Bld) Manual Normal [facility] Comment on above: Order Comment: Speci men Type: BLOOD SPECIMEN Ordering Facility: [facility] Address: [address] [place] [address] Performed By: #### 2 4323-8, #### [facility] CLIA [id number] [address] [place], [place] [address] [place] Eosinophils (Bld) [#/Vol] 0.00 10*3/uL Normal <0.46 [facility] Comment on above: Order Comment: Speci men Type: BLOOD SPECIMEN Ordering Facility: [facility] Address: [address] [place] [address] Performed By: #### 2 43212-01, #### [facility] CLIA [id number] [address] [place] [address] [place] Eosinophils/100 WBC (Bld) 0.0 % Normal [facility] Comment on above: Order Comment: Speci men Type: BLOOD SPECIMEN Ordering Facility: [facility] Address: [address] [place] [address] Performed By: #### 2 8, #### [facility] CLIA [id number] [address] [place] [address] [place] Erythrocyte distribution width (RBC) [Ratio] 25.2 % High 11.5-15.0 [facility] Comment on above: Order Comment: Speci men Type: BLOOD SPECIMEN Ordering Facility: [facility] Address: [address] [place] [address] Performed By: #### 2 4328, #### [facility] CLIA [id number] [address] [place] [address] [place] Hematocrit (Bld) [Volume fraction] 25.6 % Low 36.0-46.0 [facility] Comment on above: Order Comment: Speci men Type: BLOOD SPECIMEN Ordering Facility: [facility] Address: [address] [place] [address] Performed By: #### 2 4323-8, #### [facility] CLIA [id number] [address] [place], [place] [address] [place] Hemoglobin (Bld) [Mass/Vol] 8.2 g/dL Low 11.5-15.5 [facility] Comment on above: Order Comment: Speci men Type: BLOOD SPECIMEN Ordering Facility: [facility] Address: [address] [place] [address] Performed By: #### 2 4323-8, #### [facility] CLIA [id number] [address] [place], [place] [address] [place] Lymphocytes (Bld) [#/Vol] 0.72 10*3/uL Low 1.00-4.00 [facility] Comment on above: Order Comment: Speci men Type: BLOOD SPECIMEN Ordering Facility: [facility] Address: [address] [place] [address] Performed By: #### 2 4323-8, #### [facility] CLIA [id number] [address] [place] [address] [place] Lymphocytes/100 WBC (Bld) 4.0 % Normal [facility] Comment on above: Order Comment: Speci men Type: BLOOD SPECIMEN Ordering Facility: [facility] Address: [address] [place] [address] Performed By: #### 2 4323-8, #### [facility] CLIA [id number] [address] [place], [place] [address] [place] MCH (RBC) [Entitic mass] 24.6 pg Low 26.0-34.0 [facility] Comment on above: Order Comment: Speci men Type: BLOOD SPECIMEN Ordering Facility: [facility] Address: [address] [place] [address] Performed By: #### 2 4323-8, #### [facility] CLIA [id number] [address] [place], [place] [address] [place] MCHC (RBC) [Mass/Vol] 32.0 g/dL Normal 30.5-36.0 [facility] Comment on above: Order Comment: Speci men Type: BLOOD SPECIMEN Ordering Facility: [facility] Address: [address] [place] [address] Performed By: #### 2 4328, #### [facility] CLIA [id number] [address] [place] [address] [place] MCV (RBC) [Entitic vol] 76.6 fL Low 80.0-100.0 [facility] Comment on above: Order Comment: Speci men Type: BLOOD SPECIMEN Ordering Facility: [facility] Address: [address] [place] [address] Performed By: #### 2 8, #### [facility] CLIA [id number] [address] [place] [address] [place] Metamyelocytes/100 WBC (Bld) 1.0 % Normal [facility] Comment on above: Order Comment: Speci men Type: BLOOD SPECIMEN Ordering Facility: [facility] Address: [address] [place] [address] Performed By: #### 2 4323-04, #### [facility] CLIA [id number] [address] [place] [address] [place] Monocytes (Bld) [#/Vol] 0.89 10*3/uL High <0.87 [facility] Comment on above: Order Comment: Speci men Type: BLOOD SPECIMEN Ordering Facility: [facility] Address: [address] [place] [address] Performed By: #### 2 4323-04, #### [facility] CLIA [id number] [address] [place] [address] [place] Monocytes/100 WBC (Bld) 5.0 % Normal [facility] Comment on above: Order Comment: Speci men Type: BLOOD SPECIMEN Ordering Facility: [facility] Address: [address] [place] [address] [place] [address] Performed By: #### 2 4328, #### [facility] CLIA [id number] [address] [place], [place] [address] [place] Neutrophils (Bld) [#/Vol] 16.09 10*3/uL High 1.45-7.50 [facility] Comment on above: Order Comment: Speci men Type: BLOOD SPECIMEN Ordering Facility: [facility] Address: [address] [place] [address] Performed By: #### 2 4323-8, #### [facility] CLIA [id number] [address] [place] [address] [place] Neutrophils.hypersegme nted LM Ql (Bld) Occasional Normal [facility] Comment on above: Order Comment: Speci men Type: BLOOD SPECIMEN Ordering Facility: [facility] Address: [address] [place] [address] Performed By: #### 2 4323-8, #### [facility] CLIA [id number] [address] [place] [address] [place] Neutrophils/100 WBC (Bld) 88.0 % Normal [facility] Comment on above: Order Comment: Speci men Type: BLOOD SPECIMEN Ordering Facility: [facility] Address: [address] [place] [address] Performed By: #### 2 4323-8, #### [facility] CLIA [id number] [address] [place] [address] [place] Nucleated RBC (Bld) [#/Vol] 10*3/uL Normal <0.01 [facility] Comment on above: Order Comment: Speci men Type: BLOOD SPECIMEN Ordering Facility: [facility] Address: [address] [place] [address] Performed By: #### 2 4323-8, #### [facility] CLIA [id number] [address] [place] [address] [place] Nucleated RBC/100 WBC (Bld) [Ratio] 0.0 /100 WBC Normal [facility] Comment on above: Order Comment: Speci men Type: BLOOD SPECIMEN Ordering Facility: [facility] Address: [address] [place] [address] Performed By: #### 2 4323-8, #### [facility] CLIA [id number] [address] [place] [address] [place] Ovalocytes LM Ql (Bld) Few Normal [facility] Comment on above: Order Comment: Speci men Type: BLOOD SPECIMEN Ordering Facility: [facility] Address: [address] [place] [address] Performed By: #### 2 4328, #### [facility] CLIA [id number] [address] [place], [place] [address] [place] Platelet mean volume (Bld) [Entitic vol] Normal [facility] Comment on above: Order Comment: Speci men Type: BLOOD SPECIMEN Ordering Facility: [facility] Address: [address] [place] [address] Result Comment: Unab le to Report. Performed By: #### 2 4328, #### [facility] CLIA [id number] [address] [place] [address] [place] Platelets (Bld) [#/Vol] 91 10*3/uL Low 150-400 [facility] Comment on above: Order Comment: Speci men Type: BLOOD SPECIMEN Ordering Facility: [facility] Address: [address] [place] [address] Result Comment: No c lot detected. Performed By: #### 2 4328, #### [facility] CLIA [id number] [address] [place], [place] [address] [place] Platelets Estimate (Bld) [#/Vol] Decreased Normal [facility] Comment on above: Order Comment: Speci men Type: BLOOD SPECIMEN Ordering Facility: [facility] Address: [address] [place] [address] Performed By: #### 2 4328, #### [facility] CLIA [id number] [address] [place] [address] [place] Polychromasia LM Ql (Bld) Slight Normal [facility] Comment on above: Order Comment: Speci men Type: BLOOD SPECIMEN Ordering Facility: [facility] Address: [address] [place], [place] [address] Performed By: #### 2 4323-8, #### [facility] CLIA [id number] [address] [place], [place] [address] [facility] [place] RBC (Bld) [#/Vol] 3.34 10*6/uL Low 3.90-5.20 [facility] Comment on above: Order Comment: Speci men Type: BLOOD SPECIMEN Ordering Facility: [facility] Address: [address] [place] [address] Performed By: #### 2 4323-8, #### [facility] CLIA [id number] [address] [place] [address] RED CELL MORPH Reviewed: see result s of individual morphologies Normal [facility] Comment on above: Order Comment: Speci men Type: BLOOD SPECIMEN Ordering Facility: [facility] Address: [address] [place] [address] Performed By: #### 2 4323-8, #### [facility] CLIA [id number] [address] [place] [address] [place] WBC (Bld) [#/Vol] 17.88 10*3/uL High 3.70-11.00 [facility] Comment on above: Order Comment: Speci men Type: BLOOD SPECIMEN Ordering Facility: [facility] Address: [address] [place] [address] Performed By: #### 2 4323-8, #### [facility] CLIA [id number] [address] [place], [place] [address] [facility] CONSULTon 11-21-2023 CONSULT HNO ID: [id number] Author: SOHAIL WILLETT MD Service: Infectious Disease Author Type: Physician [...] polysubstance abuse, hx of MRSA, presented to [facility] with abdominal distention and encephalopathy, transferred to [facility] for further evaluation and paracentesis. After transfer, [...] COPD exacerbation with steroids and empiric antibiotics (ceftriaxone/azithromyc in). Pt was transferred back to the floors after clinically improving. Urine strep pneumo and legionella Ags are negative. Covid/influenza/RSV negative. Blood cxs are negative to date. Pt remains on ceftriaxone and received azithromycin x 1 yesterday. WBC count has trended up to 17.9, intially on IV steroids and now on an oral prednisone taper. Pt says she had a paracentesis at [facility] ER several days ago. She had influenza B about 2 weeks ago. Has been in and out of the hospital in [place]. She complains of a throbbing headache this [...] PAST SURGICAL HISTORY OF 2018 liver bx [facility] FAMILY HISTORY Problem Relation Age of [...] mg O (more content not included)... Normal [facility] Magnesium [Mass/Vol] 2.1 mg/dL Normal 1.6-2.6 [facility] Comment on above: Order Comment: Cole lamas Type: BLOOD SPECIMEN Ordering Facility: [facility] Address: [address] [place] [address] Performed By: #### 2 4323-8, 22470-0 #### [facility] CLIA [id number] [address] [place] [address] [facility] Prot Fld[facility] 11-21-2023 Protein (Body fld) [Mass/Vol] g/dL Normal See Comment [facility] Comment on above: Order Comment: Cole laams Type: ARTERIAL BLOOD SPECIMEN Ordering Facility: [facility] Address: [address] [place] [address] Result Comment: The reference range and other method performance specifications have not been established for this fluid test. The test result should be integrated into the clinical context for interpretation. Performed By: #### A LLBG #### [facility] CLIA [id number] [address] [place] [address] OF [facility] US PARACENTESIS BIon 024 US PARACENTESIS BI [...] anesthesia. Paracentesis was performed utilizing a 5 Swedish multiholed centesis catheter. Ultrasound confirmed needle position within the fluid and image documenting needle position was recorded in PACS. Paracentesis was performed in the right side of the abdomen. 2.2 L yellow ascitic fluid was removed. Postparacentesis scanning shows no significant residual in the region. Patient tolerated the procedure well without immediate apparent complication. IMPRESSION: Uncomplicated ultrasound-guided paracentesis Non Destructive Testing Scientist: POOJA Transcribe Date/Time: Nov 21 2023 3:05P Dictated by : SANDRA LEDESMA MD This examination was interpreted and the report reviewed and electronically signed by: SANDRA LEDESMA MD on Nov 21 2023 3:06PM EST [id number] Normal [facility] ARTERIAL BLOOD GASESon 11-20 Base excess Calc (Bld) [Moles/Vol] 1 mmol/L Normal 0-2 [facility] Comment on above: Order Comment: Cole lamas Type: BLOOD SPECIMEN Ordering Facility: [facility] Address: [address] [place] [address] Performed By: #### 2 4323-8, 82530-8 #### [facility] CLIA [id number] [address] [place] [address] [place] Body temperature 98.6 [degF] Normal [facility] Comment on above: Order Comment: Speci cydney Type: BLOOD SPECIMEN Ordering Facility: [facility] Address: [address] [place] [address] Performed By: #### 2 4323-8, 17981-0 #### [facility] CLIA [id number] [address] [place] [address] [place] Calcium.ionized (Bld) [Mass/Vol] 1.17 mmol/L Normal 1.08-1.30 [facility] Comment on above: Order Comment: Speci men Type: BLOOD SPECIMEN Ordering Facility: [facility] Address: [address] [place] [address] Performed By: #### 2 4323-8, #### [facility] CLIA [id number] [address] [place] [address] [place] Carboxyhemoglobin (BldA) [Mass fraction] 0.7 % Normal 0.0-2.0 [facility] Comment on above: Order Comment: Speci men Type: BLOOD SPECIMEN Ordering Facility: [facility] Address: [address] [place] [address] Result Comment: Carb oxyhemoglobin Reference Range for Smokers: 2.0-8.0% Performed By: #### 2 4323-8, #### [facility] CLIA [id number] [address] [place], [place] [address] [place] CO2 (Bld) [Partial pressure] 37 mm Hg Normal 36-46 [facility] Comment on above: Order Comment: Speci men Type: BLOOD SPECIMEN Ordering Facility: [facility] Address: [address] [place] [address] Performed By: #### 2 4323-8, #### [facility] CLIA [id number] [address] [place], [place] [address] [place] Glucose [Mass/Vol] 123 mg/dL High 60-105 [facility] Comment on above: Order Comment: Speci men Type: BLOOD SPECIMEN Ordering Facility: [facility] Address: [address] [place] [address] Performed By: #### 2 4323-8, #### [facility] CLIA [id number] [address] [place], [place] [address] [place] HCO3 (Bld) [Moles/Vol] 25 mmol/L Normal 22-26 [facility] Comment on above: Order Comment: Speci men Type: BLOOD SPECIMEN Ordering Facility: [facility] Address: [address] [place] [address] Performed By: #### 2 4328, #### [facility] CLIA [id number] [address] [place] [address] [place] Hemoglobin (Bld) [Mass/Vol] 9.3 g/dL Low 11.5-15.5 [facility] Comment on above: Order Comment: Speci men Type: BLOOD SPECIMEN Ordering Facility: [facility] Address: [address] [place] [address] Performed By: #### 2 4323-04, #### [facility] CLIA [id number] [address] [place] [address] [place] Lactate [Moles/Vol] 2.0 mmol/L Normal 0.5-2.2 [facility] Comment on above: Order Comment: Speci men Type: BLOOD SPECIMEN Ordering Facility: [facility] Address: [address] [place] [address] Performed By: #### 2 4323-04, #### [facility] CLIA [id number] [address] [place], [place] [address] [place] Methemoglobin (Bld) [Mass fraction] 0.3 % Normal 0.0-1.5 [facility] Comment on above: Order Comment: Speci men Type: BLOOD SPECIMEN Ordering Facility: [facility] Address: [address] [place] [address] Performed By: #### 2 4323-04, #### [facility] CLIA [id number] [address] [place] [address] [place] O2 THERAPY NC = Nasal Cannula Normal [facility] Comment on above: Order Comment: Speci men Type: BLOOD SPECIMEN Ordering Facility: [facility] Address: [address] [place], [place] [address] Performed By: #### 2 43212-01, #### [facility] CLIA [id number] [address] [place] [address] [place] Oxygen (Bld) [Partial pressure] 84 mm Hg Low 85-95 [facility] Comment on above: Order Comment: Speci men Type: BLOOD SPECIMEN Ordering Facility: [facility] Address: [address] [facility] [place] [address] Performed By: #### 2 4323-8, #### [facility] CLIA [id number] [address] [place] [address] [place] Oxyhemoglobin (BldA) [Mass fraction] 95 % Normal 95-98 [facility] Comment on above: Order Comment: Speci men Type: BLOOD SPECIMEN Ordering Facility: [facility] Address: [address] [place] [address] Performed By: #### 2 4328, #### [facility] CLIA [id number] [address] [place] [address] [place] pH (Bld) 7.45 [pH] Normal 7.35-7.45 [facility] Comment on above: Order Comment: Speci men Type: BLOOD SPECIMEN Ordering Facility: [facility] Address: [address] [place] [address] Performed By: #### 2 4323-8, #### [facility] CLIA [id number] [address] [place] [address] [place] Potassium [Moles/Vol] 4.4 mmol/L Normal 2.5-6.0 [facility] Comment on above: Order Comment: Speci men Type: BLOOD SPECIMEN Ordering Facility: [facility] Address: [address] [place] [address] Performed By: #### 2 4323-8, #### [facility] CLIA [id number] [address] [place], [place] [address] [place] Sodium [Moles/Vol] 130 mmol/L Low 136-144 [facility] Comment on above: Order Comment: Speci men Type: BLOOD SPECIMEN Ordering Facility: [facility] Address: [address] [place] [address] Performed By: #### 2 4323-8, #### [facility] CLIA [id number] [address] [place] [address] [place] CBC W Auto Differential pane l (Bld)on 11-20-2023 Anisocytosis Ql (Bld) Present Normal [facility] Comment on above: Order Comment: Speci men Type: BLOOD SPECIMEN Ordering Facility: [facility] Address: [address] [place] [address] Performed By: #### 2 4323-8, #### [facility] CLIA [id number] [address] [place] [address] [place] Band form neutrophils/100 WBC (Bld) 3.0 % Normal [facility] Comment on above: Order Comment: Speci men Type: BLOOD SPECIMEN Ordering Facility: [facility] Address: [address] [place] [address] Performed By: #### 2 4323-8, #### [facility] CLIA [id number] [address] [place] [address] [place] Basophils (Bld) [#/Vol] 0.00 10*3/uL Normal <0.11 [facility] Comment on above: Order Comment: Speci men Type: BLOOD SPECIMEN Ordering Facility: [facility] Address: [address] [place] [address] Performed By: #### 2 4323-8, #### [facility] CLIA [id number] [address] [place] [address] [place] Basophils/100 WBC (Bld) 0.0 % Normal [facility] Comment on above: Order Comment: Speci men Type: BLOOD SPECIMEN Ordering Facility: [facility] Address: [address] [place] [address] Performed By: #### 2 4323-8, #### [facility] CLIA [id number] [address] [place] [address] [place] Differential cell count method Nom (Bld) Manual Normal [facility] Comment on above: Order Comment: Speci men Type: BLOOD SPECIMEN Ordering Facility: [facility] Address: [address] [place] [id number] Performed By: #### 2 432-8, #### [facility] CLIA [id number] [address] [place] [address] [place] Eosinophils (Bld) [#/Vol] 0.00 10*3/uL Normal <0.46 [facility] Comment on above: Order Comment: Speci men Type: BLOOD SPECIMEN Ordering Facility: [facility] Address: [address] [place] [address] Performed By: #### 2 4328, #### [facility] CLIA [id number] [address] [place] [address] [place] Eosinophils/100 WBC (Bld) 0.0 % Normal [facility] Comment on above: Order Comment: Speci men Type: BLOOD SPECIMEN Ordering Facility: [facility] Address: [address] [place] [address] Performed By: #### 2 8, #### [facility] CLIA [id number] [address] [place] [address] [place] Erythrocyte distribution width (RBC) [Ratio] 24.6 % High 11.5-15.0 [facility] Comment on above: Order Comment: Speci men Type: BLOOD SPECIMEN Ordering Facility: [facility] Address: [address] [place] [address] Performed By: #### 2 4328, #### [facility] CLIA [id number] [address] [place] [address] [place] Hematocrit (Bld) [Volume fraction] 26.5 % Low 36.0-46.0 [facility] Comment on above: Order Comment: Speci men Type: BLOOD SPECIMEN Ordering Facility: [facility] Address: [address] [place] [address] Performed By: #### 2 4323-8, #### [facility] CLIA [id number] [address] [place] [address] [place] Hemoglobin (Bld) [Mass/Vol] 8.3 g/dL Low 11.5-15.5 [facility] Comment on above: Order Comment: Speci men Type: BLOOD SPECIMEN Ordering Facility: [facility] Address: [address] [place] [address] Performed By: #### 2 4323-8, 81995-0 #### [facility] CLIA [id number] [address] [place] [address] [place] Lymphocytes (Bld) [#/Vol] 0.31 10*3/uL Low 1.00-4.00 [facility] Comment on above: Order Comment: Speci men Type: BLOOD SPECIMEN Ordering Facility: [facility] Address: [address] [place] [address] Performed By: #### 2 4323-8, 17664-5 #### [facility] CLIA [id number] [address] [place] [address] [place] Lymphocytes/100 WBC (Bld) 2.0 % Normal [facility] Comment on above: Order Comment: Speci men Type: BLOOD SPECIMEN Ordering Facility: [facility] Address: [address] [place] [address] Performed By: #### 2 4323-8, #### [facility] CLIA [id number] [address] [place] [address] [place] MCH (RBC) [Entitic mass] 23.9 pg Low 26.0-34.0 [facility] Comment on above: Order Comment: Speci men Type: BLOOD SPECIMEN Ordering Facility: [facility] Address: [address] [place] [address] Performed By: #### 2 4323-8, #### [facility] CLIA [id number] [address] [place], [place] [address] [place] MCHC (RBC) [Mass/Vol] 31.3 g/dL Normal 30.5-36.0 [facility] Comment on above: Order Comment: Speci men Type: BLOOD SPECIMEN Ordering Facility: [facility] Address: [address] [place] [id number] Performed By: #### 2 4328, #### [facility] CLIA [id number] [address] [place] [address] [place] MCV (RBC) [Entitic vol] 76.1 fL Low 80.0-100.0 [facility] Comment on above: Order Comment: Speci men Type: BLOOD SPECIMEN Ordering Facility: [facility] Address: [address] [place] [address] Performed By: #### 2 4328, #### [facility] CLIA [id number] [address] [place] [address] [place] Metamyelocytes/100 WBC (Bld) 1.0 % Normal [facility] Comment on above: Order Comment: Speci men Type: BLOOD SPECIMEN Ordering Facility: [facility] Address: [address] [place] [address] Performed By: #### 2 4323-04, #### [facility] CLIA [id number] [address] [place] [address] [place] Monocytes (Bld) [#/Vol] 0.94 10*3/uL High <0.87 [facility] Comment on above: Order Comment: Speci men Type: BLOOD SPECIMEN Ordering Facility: [facility] Address: [address] [place] [address] Performed By: #### 2 8, #### [facility] CLIA [id number] [address] [place] [address] [place] Monocytes/100 WBC (Bld) 6.0 % Normal [facility] Comment on above: Order Comment: Speci men Type: BLOOD SPECIMEN Ordering Facility: [facility] Address: [address] [place] [address] Performed By: #### 2 4323-8, #### [facility] CLIA [id number] [address] [place] [address] [place] Neutrophils (Bld) [#/Vol] 14.24 10*3/uL High 1.45-7.50 [facility] Comment on above: Order Comment: Speci men Type: BLOOD SPECIMEN Ordering Facility: [facility] Address: [address] [place] [address] Performed By: #### 2 4323-8, #### [facility] CLIA [id number] [address] [place] [address] [place] Neutrophils.hypersegme nted LM Ql (Bld) Occasional Normal [facility] Comment on above: Order Comment: Speci men Type: BLOOD SPECIMEN Ordering Facility: [facility] Address: [address] [place] [address] Performed By: #### 2 4323-8, #### [facility] CLIA [id number] [address] [place] [address] [place] Neutrophils/100 WBC (Bld) 88.0 % Normal [facility] Comment on above: Order Comment: Speci men Type: BLOOD SPECIMEN Ordering Facility: [facility] Address: [address] [place] [address] Performed By: #### 2 4323-8, #### [facility] CLIA [id number] [address] [place] [address] [place] Nucleated RBC (Bld) [#/Vol] 10*3/uL Normal <0.01 [facility] Comment on above: Order Comment: Speci men Type: BLOOD SPECIMEN Ordering Facility: [facility] Address: [address] [place] [address] Performed By: #### 2 4323-8, #### [facility] CLIA [id number] [address] [place] [address] [place] Nucleated RBC/100 WBC (Bld) [Ratio] 0.0 /100 WBC Normal [facility] Comment on above: Order Comment: Speci men Type: BLOOD SPECIMEN Ordering Facility: [facility] Address: [address] [place] [address] Performed By: #### 2 4328, #### [facility] CLIA [id number] [address] [place] [address] [place] Ovalocytes LM Ql (Bld) Few Normal [facility] Comment on above: Order Comment: Speci men Type: BLOOD SPECIMEN Ordering Facility: [facility] Address: [address] [place] [address] Performed By: #### 2 4323-04, #### [facility] CLIA [id number] [address] [place] [address] [place] Platelet mean volume (Bld) [Entitic vol] 9.9 fL Normal 9.0-12.7 [facility] Comment on above: Order Comment: Speci men Type: BLOOD SPECIMEN Ordering Facility: [facility] Address: [address] [place] [address] Performed By: #### 2 4323-04, #### [facility] CLIA [id number] [address] [place] [address] [place] Platelets (Bld) [#/Vol] 78 10*3/uL Low 150-400 [facility] Comment on above: Order Comment: Speci men Type: BLOOD SPECIMEN Ordering Facility: [facility] Address: [address] [place] [address] Result Comment: No c lot detected. Performed By: #### 2 4323-04, #### [facility] CLIA [id number] [address] [place] [address] [place] Platelets Estimate (Bld) [#/Vol] Decreased Normal [facility] Comment on above: Order Comment: Speci men Type: BLOOD SPECIMEN Ordering Facility: [facility] Address: [address] [place] [address] Performed By: #### 2 4328, #### [facility] CLIA [id number] [address] [place] [address] [place] Polychromasia LM Ql (Bld) Slight Normal [facility] Comment on above: Order Comment: Speci men Type: BLOOD SPECIMEN Ordering Facility: [facility] Address: [address] [place] [address] Performed By: #### 2 4323-8, #### [facility] CLIA [id number] [address] [place] [address] [place] RBC (Bld) [#/Vol] 3.48 10*6/uL Low 3.90-5.20 [facility] Comment on above: Order Comment: Speci men Type: BLOOD SPECIMEN Ordering Facility: [facility] Address: [address] [place] [address] Performed By: #### 2 4323-8, #### [facility] CLIA [id number] [address] [place] [address] [place] RED CELL MORPH Reviewed: see result s of individual morphologies Normal [facility] Comment on above: Order Comment: Speci men Type: BLOOD SPECIMEN Ordering Facility: [facility] Address: [address] [place], [place] [address] Performed By: #### 2 4323-8, #### [facility] CLIA [id number] [address] [place] [address] [place] WBC (Bld) [#/Vol] 15.65 10*3/uL High 3.70-11.00 [facility] Comment on above: Order Comment: Speci men Type: BLOOD SPECIMEN Ordering Facility: [facility] Address: [address] [place] [address] Performed By: #### 2 4323-8, #### [facility] CLIA [id number] [address] [place], [place] [address] [place] Calcium.ionized [Moles/Vol]o n 11-20-2023 Calcium.ionized (Bld) [Mass/Vol] 1.17 mmol/L Normal 1.16-1.32 [facility] Comment on above: Order Comment: Speci men Type: BLOOD SPECIMEN Ordering Facility: [facility] Address: [address] [place] [address] Performed By: #### 2 4323-8, 39186-6 #### [facility] CLIA [id number] [address] [place], [place] [address] [place] Comprehensive metabolic 2000 panelon 11-20-2023 Albumin [Mass/Vol] 2.4 g/dL Low 3.2-5.0 [facility] Comment on above: Order Comment: Speci men Type: BLOOD SPECIMEN Ordering Facility: [facility] Address: [address] [place] [address] Result Comment: DELT A CHECK Performed By: #### 2 4323-8, #### [facility] CLIA [id number] [address] [place] [address] [place] ALP [Catalytic activity/Vol] 130 U/L High 45-117 [facility] Comment on above: Order Comment: Speci men Type: BLOOD SPECIMEN Ordering Facility: [facility] Address: [address] [place] [address] Performed By: #### 2 4323-8, 99679-9 #### [facility] CLIA [id number] [address] [place] [address] [place] ALT [Catalytic activity/Vol] 32 U/L Normal 13-61 [facility] Comment on above: Order Comment: Speci men Type: BLOOD SPECIMEN Ordering Facility: [facility] Address: [address] [place] [address] Result Comment: Resu lts may be falsely depressed after the administration of Sulfasalazine and/or Sulfapyridine. Performed By: #### 2 4323-8, #### [facility] CLIA [id number] [address] [place], [place] [address] [place] Anion gap [Moles/Vol] 3 mmol/L Low 5-16 [facility] Comment on above: Order Comment: Speci men Type: BLOOD SPECIMEN Ordering Facility: [facility] Address: [address] [place] [address] Performed By: #### 2 4323-8, #### [facility] CLIA [id number] [address] [place] [address] [place] AST [Catalytic activity/Vol] 76 U/L High 8-34 [facility] Comment on above: Order Comment: Speci men Type: BLOOD SPECIMEN Ordering Facility: [facility] Address: [address] [place] [address] Result Comment: Resu lts may be falsely depressed after the administration of Sulfasalazine and/or Sulfapyridine. Performed By: #### 2 432-8, #### [facility] CLIA [id number] [address] [place], [place] [address] [place] Bilirubin [Mass/Vol] 2.2 mg/dL High 0.2-1.0 [facility] Comment on above: Order Comment: Speci men Type: BLOOD SPECIMEN Ordering Facility: [facility] Address: [address] [place] [address] Performed By: #### 2 432-8, #### [facility] CLIA [id number] [address] [place], [place] [address] [place] Calcium [Mass/Vol] 8.9 mg/dL Normal 8.5-10.5 [facility] Comment on above: Order Comment: Speci men Type: BLOOD SPECIMEN Ordering Facility: [facility] Address: [address] [place] [address] Performed By: #### 2 4328, #### [facility] CLIA [id number] [address] [place] [address] [place] Chloride [Moles/Vol] 102 mmol/L Normal 98-107 [facility] Comment on above: Order Comment: Speci men Type: BLOOD SPECIMEN Ordering Facility: [facility] Address: [address] [place], [place] [address] Performed By: #### 2 4323-8, #### [facility] CLIA [id number] [address] [place], [place] [address] [place] CO2 [Moles/Vol] 28 mmol/L Normal 21-32 [facility] Comment on above: Order Comment: Cole lamas Type: BLOOD SPECIMEN Ordering Facility: [facility] Address: [address] [place] [address] Performed By: #### 2 4323-8, #### [facility] CLIA [id number] [address] [place] [address] [place] Creatinine [Mass/Vol] 0.95 mg/dL Normal 0.51-0.95 [facility] Comment on above: Order Comment: Yeseniai men Type: BLOOD SPECIMEN Ordering Facility: [facility] Address: [address] [place] [address] Result Comment: Tamie ents receiving either N-Acetylcysteine (NAC) or Metamizole prior to venipuncture, may have falsely depressed results. Performed By: #### 2 4323-8, #### [facility] CLIA [id number] [address] [place] [address] [place] Creatinine and Glomerular filtration rate.predicted panel (S/P/Bld) 73 mL/min/1.73m??? Normal >=60 [facility] Comment on above: Order Comment: Yeseniai cydney Type: BLOOD SPECIMEN Ordering Facility: [facility] Address: [address] [place] [address] Result Comment: Connie mated Glomerular Filtration Rate [...] GFR. Performed By: #### 2 4323-8, #### [facility] CLIA [id number] [address] [place] [address] [place] Glucose [Mass/Vol] 141 mg/dL High 70-100 [facility] Comment on above: Order Comment: Yeseniai men Type: BLOOD SPECIMEN Ordering Facility: [facility] Address: [address] [place], [place] [id number] Result Comment: The [place] [employer] (ADA) provides guidance for cutoff [...] Standards of Medical Care in Diabetes 2016, [place] [employer]. Diabetes Care. 2016.39(Suppl 1). Results may be falsely elevated after the administration of Sulfapyridine. Results may be falsely depressed after the administration of Sulfasalazine. Performed By: #### 2 4323-8, 85123-9 #### [facility] CLIA [id number] [address] [place] [address] [place] Potassium [Moles/Vol] 4.9 mmol/L Normal 3.5-5.1 [facility] Comment on above: Order Comment: Cole lamas Type: BLOOD SPECIMEN Ordering Facility: [facility] Address: [address] [place], [place] [address] Performed By: #### 2 4323-8, #### [facility] CLIA [id number] [address] [place] [address] [place] Protein [Mass/Vol] 7.0 g/dL Normal 6.0-8.5 [facility] Comment on above: Order Comment: Cole lamas Type: BLOOD SPECIMEN Ordering Facility: [facility] Address: [address] [place], [place] [address] Performed By: #### 2 4323-8, #### [facility] CLIA [id number] [address] [place], [place] [address] [place] Sodium [Moles/Vol] 133 mmol/L Low 136-145 [facility] Comment on above: Order Comment: Speci men Type: BLOOD SPECIMEN Ordering Facility: [facility] Address: [address] [place] [address] Performed By: #### 2 4323-8, #### [facility] CLIA [id number] [address] [place], [place] [address] [place] Urea nitrogen [Mass/Vol] 20 mg/dL Normal 04-20 [facility] Comment on above: Order Comment: Speci men Type: BLOOD SPECIMEN Ordering Facility: [facility] Address: [address] [place] [address] Performed By: #### 2 4323-8, #### [facility] CLIA [id number] [address] [place], [place] [address] [place] Lactate (Bld) [Moles/Vol]on 11-20-2023 Lactate [Moles/Vol] 4.2 mmol/L High 0.4-2.0 [facility] Comment on above: Order Comment: Speci men Type: BLOOD SPECIMEN Ordering Facility: [facility] Address: [address] [place], [place] [address] Result Comment: CALL CRITICAL Performed By: #### 2 4323-8, #### [facility] CLIA [id number] [address] [place], [place] [address] [place] Lactate [Moles/Vol] 2.8 mmol/L High 0.4-2.0 [facility] Comment on above: Order Comment: Speci men Type: BLOOD SPECIMEN Ordering Facility: [facility] Address: [address] [place] [address] Performed By: #### 2 4323-8, #### [facility] CLIA [id number] [address] [place], [place] [address] [place] Lactate [Moles/Vol] 3.1 mmol/L High 0.4-2.0 [facility] Comment on above: Order Comment: Speci men Type: BLOOD SPECIMEN Ordering Facility: [facility] Address: [address] [place] [address] Performed By: #### 2 4323-8, #### [facility] CLIA [id number] [address] [place] [address] [place] Magnesium SerPl-mCncon 11-20 Magnesium [Mass/Vol] 1.9 mg/dL Normal 1.6-2.6 [facility] Comment on above: Order Comment: Cole lamas Type: BLOOD SPECIMEN Ordering Facility: [facility] Address: [address] [place], [place] [address] Performed By: #### 2 4323-8, #### [facility] CLIA [id number] [address] [place] [address] [place] PT panel Coag (PPP)on 2023 INR Coag (PPP) [Relative time] 2.3 {INR} High 0.9-1.3 [facility] Comment on above: Order Comment: Cole lamas Type: BLOOD SPECIMEN Ordering Facility: [facility] Address: [address] [place], [place] [phone] Result Comment: Roma min K Antagonist (VKA) Therapeutic Range: INR 2 to 3 (Target INR of 2.5) Note: For patients treated with VKA drugs, such as warfarin, the [place] [employer] 2012 Guideline recommends [...] GH, et al. Chest 2012, 141:7S-47S Diomedes POWELL et al. JAC 2017, 70: 252-289 Performed By: #### 2 4323-8, 73477-2 #### [facility] CLIA [id number] [address] [place] [address] PT Coag (PPP) [Time] 23.1 s High 9.7-13.0 [facility] Comment on above: Order Comment: Yeseniai cydney Type: BLOOD SPECIMEN Ordering Facility: [facility] Address: [address] [place] [address] Performed By: #### 2 4323-8, 44019-0 #### [facility] CLIA [id number] [address] [place] [address] Phosphate SerPl-mCncon 11-20 Phosphate [Mass/Vol] 2.5 mg/dL Normal 2.5-4.9 [facility] Comment on above: Order Comment: Cole lamas Type: BLOOD SPECIMEN Ordering Facility: [facility] Address: [address] [place] [address] Result Comment: Elev ated m-protein (paraprotein) levels in the serum may be exhibited in patients with monoclonal gammopathies, causing falsely elevated inorganic phosphorus results. Performed By: #### 2 4323-8, 42329-7 #### [facility] CLIA [id number] [address] [place], [place] [address] [facility] THERAPY NTon 11-20-2023 THERAPY NT HNO ID: [id number] Author: DEV RODRIGUEZ RRT Service: Respiratory Therapy Author Type: Registered Resp Therapist Type: Therapy (PT/OT/Speech/Resp) Filed: 11/20/2023 01:26 Note Text: Pt ripped off mask and stated she couldn't breathe RN told her how important it was for her to wear at this time due to O2 issues. Pt will not go back on at this time. Normal [facility] XR CHEST 1V FRONTALon 2023 XR [...] fluid. No pneumothorax. IMPRESSION: No significant change. Non Destructive Testing Scientist: POOJA Transcribe Date/Time: Nov 20 2023 7:04A Dictated by : JEAN CARLOS BLANC MD This examination was interpreted and the report reviewed and electronically signed by: JEAN CARLOS BLANC MD on Nov 20 2023 7:04AM EST [id number] Normal [facility] aPTT PPPon 11-20-2023 aPTT Coag (PPP) [Time] 45.7 s High 23.0-32.4 [facility] Comment on above: Order Comment: Cole lamas Type: BLOOD SPECIMEN Ordering Facility: [facility] Address: [address] [place] [address] Performed By: #### 2 4323-8, 97563-3 #### [facility] CLIA [id number] [address] [place] [address] [place] ARTERIAL BLOOD GASESon 11-19 Base deficit (BldA) [Moles/Vol] -3 mmol/L Low -2-0 [facility] Comment on above: Order Comment: Cole lamas Type: BLOOD SPECIMEN Ordering Facility: [facility] Address: [address] [place] [address] Performed By: #### 5 8410-2 #### [facility] CLIA [id number] [address] [place] [address] [place] Body temperature 98.6 [degF] Normal [facility] Comment on above: Order Comment: Yeseniai cydney Type: BLOOD SPECIMEN Ordering Facility: [facility] Address: [address] [place] [address] Performed By: #### 5 8410-2 #### [facility] CLIA [id number] [address] [place] [address] [place] Calcium.ionized (Bld) [Mass/Vol] 1.17 mmol/L Normal 1.08-1.30 [facility] Comment on above: Order Comment: Speci men Type: BLOOD SPECIMEN Ordering Facility: [facility] Address: [address] [place] [address] Performed By: #### 5 8410-2 #### [facility] CLIA [id number] [address] [place] [address] [place] Carboxyhemoglobin (BldA) [Mass fraction] 0.9 % Normal 0.0-2.0 [facility] Comment on above: Order Comment: Speci men Type: BLOOD SPECIMEN Ordering Facility: [facility] Address: [address] [place] [address] Result Comment: Carb oxyhemoglobin Reference Range for Smokers: 2.0-8.0% Performed By: #### 5 8410-2 #### [facility] CLIA [id number] [address] [place] [address] [place] CO2 (Bld) [Partial pressure] 40 mm Hg Normal 36-46 [facility] Comment on above: Order Comment: Speci men Type: BLOOD SPECIMEN Ordering Facility: [facility] Address: [address] [place] [address] Performed By: #### 5 8410-2 #### [facility] CLIA [id number] [address] [place] [address] [place] FIO2 40 % Normal [facility] Comment on above: Order Comment: Speci men Type: BLOOD SPECIMEN Ordering Facility: [facility] Address: [address] [place] [address] Performed By: #### 5 8410-2 #### [facility] CLIA [id number] [address] [place] [address] [place] Glucose [Mass/Vol] 86 mg/dL Normal 60-105 [facility] Comment on above: Order Comment: Speci men Type: BLOOD SPECIMEN Ordering Facility: [facility] Address: [address] [place] [address] Performed By: #### 5 8410-2 #### [facility] CLIA [id number] [address] [place] [address] [place] HCO3 (Bld) [Moles/Vol] 23 mmol/L Normal 22-26 [facility] Comment on above: Order Comment: Speci men Type: BLOOD SPECIMEN Ordering Facility: [facility] Address: [address] [place] [address] Performed By: #### 5 8410-2 #### [facility] CLIA [id number] [address] [place] [address] [place] Hemoglobin (Bld) [Mass/Vol] 10.9 g/dL Low 11.5-15.5 [facility] Comment on above: Order Comment: Speci men Type: BLOOD SPECIMEN Ordering Facility: [facility] Address: [address] [place] [address] Performed By: #### 5 8410-2 #### [facility] CLIA [id number] [address] [place] [address] [place] Lactate [Moles/Vol] 2.1 mmol/L Normal 0.5-2.2 [facility] Comment on above: Order Comment: Speci men Type: BLOOD SPECIMEN Ordering Facility: [facility] Address: [address] [place] [address] Performed By: #### 5 8410-2 #### [facility] CLIA [id number] [address] [place] [address] [place] Methemoglobin (Bld) [Mass fraction] 0.2 % Normal 0.0-1.5 [facility] Comment on above: Order Comment: Speci men Type: BLOOD SPECIMEN Ordering Facility: [facility] Address: [address] [place] [address] Performed By: #### 5 8410-2 #### [facility] CLIA [id number] [address] [place] [address] [place] O2 THERAPY Positive Normal [facility] Comment on above: Order Comment: Speci men Type: BLOOD SPECIMEN Ordering Facility: [facility] Address: [address] [place] [address] Performed By: #### 5 8410-2 #### [facility] CLIA [id number] [address] [place] [address] [place] Oxygen (Bld) [Partial pressure] 79 mm Hg Low 85-95 [facility] Comment on above: Order Comment: Speci men Type: BLOOD SPECIMEN Ordering Facility: [facility] Address: [address] [place] [address] Performed By: #### 5 8410-2 #### [facility] CLIA [id number] [address] [place] [address] [place] Oxyhemoglobin (BldA) [Mass fraction] 94 % Low 95-98 [facility] Comment on above: Order Comment: Speci men Type: BLOOD SPECIMEN Ordering Facility: [facility] Address: [address] [place] [address] Performed By: #### 5 8410-2 #### [facility] CLIA [id number] [address] [place] [address] [place] pH (Bld) 7.37 [pH] Normal 7.35-7.45 [facility] Comment on above: Order Comment: Speci men Type: BLOOD SPECIMEN Ordering Facility: [facility] Address: [address] [place] [address] Performed By: #### 5 8410-2 #### [facility] CLIA [id number] [address] [place] [address] [place] PO2 / FIO2 RATIO 198 mmHg Low >300 [facility] Comment on above: Order Comment: Speci men Type: BLOOD SPECIMEN Ordering Facility: [facility] Address: [address] [place] [address] Performed By: #### 5 8410-2 #### [facility] CLIA [id number] [address] [place] [address] [place] Potassium [Moles/Vol] 4.4 mmol/L Normal 2.5-6.0 [facility] Comment on above: Order Comment: Speci men Type: BLOOD SPECIMEN Ordering Facility: [facility] Address: [address] [place] [address] Performed By: #### 5 8410-2 #### [facility] CLIA [id number] [address] [place] [address] [place] Sodium [Moles/Vol] 134 mmol/L Low 136-144 [facility] Comment on above: Order Comment: Speci men Type: BLOOD SPECIMEN Ordering Facility: [facility] Address: [address] [place] [address] Performed By: #### 5 8410-2 #### [facility] CLIA [id number] [address] [place] [address] [place] Base deficit (BldA) [Moles/Vol] -6 mmol/L Low -2-0 [facility] Comment on above: Order Comment: Speci men Type: ARTERIAL BLOOD SPECIMEN Ordering Facility: [facility] Address: [address] [place] [address] Performed By: #### A LLBG #### [facility] CLIA [id number] [address] [place] [address] [place] Body temperature 98.6 [degF] Normal [facility] Comment on above: Order Comment: Speci men Type: ARTERIAL BLOOD SPECIMEN Ordering Facility: [facility] Address: [address] [place] [address] Performed By: #### A LLBG #### [facility] CLIA [id number] [address] [place] [address] [place] Calcium.ionized (Bld) [Mass/Vol] 1.22 mmol/L Normal 1.08-1.30 [facility] Comment on above: Order Comment: Speci men Type: ARTERIAL BLOOD SPECIMEN Ordering Facility: [facility] Address: [address] [place] [address] Performed By: #### A LLBG #### [facility] CLIA [id number] [address] [place] [address] Calcium.ionized adjusted to pH 7.4 (BldA) [Moles/Vol] Normal [facility] Comment on above: Order Comment: Speci men Type: ARTERIAL BLOOD SPECIMEN Ordering Facility: [facility] Address: [address] [place] [address] Result Comment: Latrice ured pH is <7.20. Unable to report normalized Calcium. Performed By: #### A LLBG #### [facility] CLIA [id number] [address] [place] [address] [place] Carboxyhemoglobin (BldA) [Mass fraction] 0.5 % Normal 0.0-2.0 [facility] Comment on above: Order Comment: Speci men Type: ARTERIAL BLOOD SPECIMEN Ordering Facility: [facility] Address: [address] [place] [address] Result Comment: Carb oxyhemoglobin Reference Range for Smokers: 2.0-8.0% Performed By: #### A LLBG #### [facility] CLIA [id number] [address] [place] [address] [place] CO2 (Bld) [Partial pressure] 65 mm Hg High 36-46 [facility] Comment on above: Order Comment: Speci men Type: ARTERIAL BLOOD SPECIMEN Ordering Facility: [facility] Address: [address] [place] [address] Performed By: #### A LLBG #### [facility] CLIA [id number] [address] [place] [address] [place] FIO2 100.0 % Normal [facility] Comment on above: Order Comment: Speci men Type: ARTERIAL BLOOD SPECIMEN Ordering Facility: [facility] Address: [address] [place] [address] Performed By: #### A LLBG #### [facility] CLIA [id number] [address] [place] [address] [place] Glucose [Mass/Vol] 107 mg/dL High 60-105 [facility] Comment on above: Order Comment: Speci men Type: ARTERIAL BLOOD SPECIMEN Ordering Facility: [facility] Address: [address] [place] [address] Performed By: #### A LLBG #### [facility] CLIA [id number] [address] [place] [address] [place] HCO3 (Bld) [Moles/Vol] 24 mmol/L Normal 22-26 [facility] Comment on above: Order Comment: Speci men Type: ARTERIAL BLOOD SPECIMEN Ordering Facility: [facility] Address: [address] [place] [address] Performed By: #### A LLBG #### [facility] CLIA [id number] [address] [place] [address] [place] Hemoglobin (Bld) [Mass/Vol] 12.0 g/dL Normal 11.5-15.5 [facility] Comment on above: Order Comment: Speci men Type: ARTERIAL BLOOD SPECIMEN Ordering Facility: [facility] Address: [address] [place] [address] Performed By: #### A LLBG #### [facility] CLIA [id number] [address] [place] [address] [place] Lactate [Moles/Vol] 5.2 mmol/L High 0.5-2.2 [facility] Comment on above: Order Comment: Speci men Type: ARTERIAL BLOOD SPECIMEN Ordering Facility: [facility] Address: [address] [place] [address] Performed By: #### A LLBG #### [facility] CLIA [id number] [address] [place] [address] [place] Methemoglobin (Bld) [Mass fraction] 0.1 % Normal 0.0-1.5 [facility] Comment on above: Order Comment: Speci men Type: ARTERIAL BLOOD SPECIMEN Ordering Facility: [facility] Address: [address] [place] [address] Performed By: #### A LLBG #### [facility] CLIA [id number] [address] [place] [address] O2 THERAPY NR=Non-Rebreather Mask Normal [facility] Comment on above: Order Comment: Speci men Type: ARTERIAL BLOOD SPECIMEN Ordering Facility: [facility] Address: [address] [place] [address] Performed By: #### A LLBG #### [facility] CLIA [id number] [address] [place] [address] OF [place] Oxygen (Bld) [Partial pressure] 78 mm Hg Low 85-95 [facility] Comment on above: Order Comment: Speci men Type: ARTERIAL BLOOD SPECIMEN Ordering Facility: [facility] Address: [address] [place] [address] Performed By: #### A LLBG #### [facility] CLIA [id number] [address] [place] [address] [place] Oxyhemoglobin (BldA) [Mass fraction] 90 % Low 95-98 [facility] Comment on above: Order Comment: Speci men Type: ARTERIAL BLOOD SPECIMEN Ordering Facility: [facility] Address: [address] [place] [address] Performed By: #### A LLBG #### [facility] CLIA [id number] [address] [place] [address] [place] pH (Bld) 7.18 [pH] Critically low 7.35-7.45 [facility] Comment on above: Order Comment: Speci men Type: ARTERIAL BLOOD SPECIMEN Ordering Facility: [facility] Address: [address] [place] [address] Performed By: #### A LLBG #### [facility] CLIA [id number] [address] [place] [address] OF [place] PO2 / FIO2 RATIO 78 mmHg Low >300 [facility] Comment on above: Order Comment: Speci men Type: ARTERIAL BLOOD SPECIMEN Ordering Facility: [facility] Address: [address] [place] [address] Performed By: #### A LLBG #### [facility] CLIA [id number] [address] [place] [address] [place] Potassium [Moles/Vol] 4.0 mmol/L Normal 2.5-6.0 [facility] Comment on above: Order Comment: Speci men Type: ARTERIAL BLOOD SPECIMEN Ordering Facility: [facility] Address: [address] [place] [address] Performed By: #### A LLBG #### [facility] CLIA [id number] [address] [place] [address] [place] Sodium [Moles/Vol] 136 mmol/L Normal 136-144 [facility] Comment on above: Order Comment: Speci men Type: ARTERIAL BLOOD SPECIMEN Ordering Facility: [facility] Address: [address] [place] [address] Performed By: #### A LLBG #### [facility] CLIA [id number] [address] [place] [address] [place] Ammonia Plas-sCncon 11-19-19 24 Ammonia (P) [Moles/Vol] 20 umol/L Normal 11-32 [facility] Comment on above: Order Comment: Speci men Type: BLOOD SPECIMEN Ordering Facility: [facility] Address: [address] [place] [address] Result Comment: Resu lts may be falsely depressed after the administration of Sulfapyridine. Results may be falsely elevated after the administration of Sulfasalazine. Performed By: #### 1 6362-6 #### [facility] CLIA [id number] [address] [place] [address] [place] Bacteria Bld Culton 11-19-19 24 Bacteria identified Cx Nom (Bld) CULTURE, BLOOD: No growth 5 days Normal [facility] Comment on above: Performed By: #### 6 00-7 ####[facility] [id number] [address] Bacteria identified Cx Nom (Bld) CULTURE, BLOOD: No growth 5 days Normal [facility] Comment on above: Performed By: #### 6 00-7 ####[facility] [id number] [place] [address] [place] CBC panel Auto (Bld)on 11-19 Erythrocyte distribution width (RBC) [Ratio] 24.2 % High 11.5-15.0 [facility] Comment on above: Order Comment: Speci men Type: BLOOD SPECIMEN Ordering Facility: [facility] Address: [address] [place] [address] Performed By: #### 5 8410-2 #### [facility] CLIA [id number] [address] [place] [address] [place] Hematocrit (Bld) [Volume fraction] 30.3 % Low 36.0-46.0 [facility] Comment on above: Order Comment: Speci men Type: BLOOD SPECIMEN Ordering Facility: [facility] Address: [address] [place] [address] Performed By: #### 5 8410-2 #### [facility] CLIA [id number] [address] [place] [address] [place] Hemoglobin (Bld) [Mass/Vol] 9.4 g/dL Low 11.5-15.5 [facility] Comment on above: Order Comment: Speci men Type: BLOOD SPECIMEN Ordering Facility: [facility] Address: [address] [place] [address] Performed By: #### 5 8410-2 #### [facility] CLIA [id number] [address] [place] [address] [place] MCH (RBC) [Entitic mass] 23.6 pg Low 26.0-34.0 [facility] Comment on above: Order Comment: Speci men Type: BLOOD SPECIMEN Ordering Facility: [facility] Address: [address] [place] [address] Performed By: #### 5 8410-2 #### [facility] CLIA [id number] [address] [place] [address] [place] MCHC (RBC) [Mass/Vol] 31.0 g/dL Normal 30.5-36.0 [facility] Comment on above: Order Comment: Speci men Type: BLOOD SPECIMEN Ordering Facility: [facility] Address: [address] [place] [address] Performed By: #### 5 8410-2 #### [facility] CLIA [id number] [address] [place] [address] [place] MCV (RBC) [Entitic vol] 76.1 fL Low 80.0-100.0 [facility] Comment on above: Order Comment: Speci men Type: BLOOD SPECIMEN Ordering Facility: [facility] Address: [address] [place] [address] Performed By: #### 5 8410-2 #### [facility] CLIA [id number] [address] [place] [address] [place] Nucleated RBC (Bld) [#/Vol] 10*3/uL Normal <0.01 [facility] Comment on above: Order Comment: Speci men Type: BLOOD SPECIMEN Ordering Facility: [facility] Address: [address] [place] [address] Performed By: #### 5 8410-2 #### [facility] CLIA [id number] [address] [place] [address] [place] Platelet mean volume (Bld) [Entitic vol] Normal [facility] Comment on above: Order Comment: Speci men Type: BLOOD SPECIMEN Ordering Facility: [facility] Address: [address] [place] [address] Result Comment: Unab le to Report. Performed By: #### 5 8410-2 #### [facility] CLIA [id number] [address] [place] [address] [place] Platelets (Bld) [#/Vol] 80 10*3/uL Low 150-400 [facility] Comment on above: Order Comment: Speci men Type: BLOOD SPECIMEN Ordering Facility: [facility] Address: [address] [place] [address] Result Comment: Resu lts checked and verified.No clot detected. Performed By: #### 5 8410-2 #### [facility] CLIA [id number] [address] [place] [address] [place] RBC (Bld) [#/Vol] 3.98 10*6/uL Normal 3.90-5.20 [facility] Comment on above: Order Comment: Speci men Type: BLOOD SPECIMEN Ordering Facility: [facility] Address: [address] [place] [address] Performed By: #### 5 8410-2 #### [facility] CLIA [id number] [address] [place], [place] [address] [facility] OF [place] WBC (Bld) [#/Vol] 13.45 10*3/uL High 3.70-11.00 [facility] Comment on above: Order Comment: Speci men Type: BLOOD SPECIMEN Ordering Facility: [facility] Address: [address] [place] [address] Performed By: #### 5 8410-2 #### [facility] CLIA [id number] [address] [place], [place] [address] [facility] CONSULTon 11-19-2023 CONSULT HNO ID: [id number] Author: MARIAH TRAVIS APRN.CNP Service: Critical Care Author Type: Nurse Practitioner Type: Consults Filed: 11/19/2023 11:45 Note Text: [facility] SERVICE DATE: November 19, 2023 SERVICE TIME: 0800 Consulting Doctor: Dr. Molina CHIEF COMPLAINT: AMS HPI: This 48 year old female initially presented to [facility] emergency department for abdominal pain, patient met sepsis criteria and required paracentesis rule out SBP which is not available at this hospital therefore she was transferred to [facility]. This morning a rapid response was [...] PAST SURGICAL HISTORY OF 2018 liver bx [facility] FAMILY HISTORY Problem Relation Age of [...] and shortness (more content not included)... Normal [facility] CT ABD/PEL W IVCONon 024 CT ABD/PEL W IVCON * * *Final Report* * * DATE OF EXAM: Nov 19 2023 7:15AM [facility] 0530 - CT ABD/PEL W IVCON / [...] the bilateral lungs, greater on the left. Assistant Food Service Director (topogram) images: No additional findings. IMPRESSION: 1. [...] bowel, likely reactive to ascites. Dictated by Html Web Developer: Arun Mena MD I, Sam Henderson MD, have supervised the procedure and/or image review, and agree with the above interpretation and report. Non Destructive Testing Scientist: POOJA Transcribe Date/Time: Nov 19 2023 7:18A Dictated by : ARUN MENA, This examination was interpreted and the report reviewed and electronically signed by: SAM HENDERSON MD on Nov 19 2023 7:54AM EST [id number] Normal [facility] Comprehensive metabolic 2000 panelon 11-19-2023 Albumin [Mass/Vol] 1.9 g/dL Low 3.2-5.0 [facility] Comment on above: Order Comment: Speci men Type: BLOOD SPECIMEN Ordering Facility: [facility] Address: [address] [place] [address] Performed By: #### 2 4323-8, #### [facility] CLIA [id number] [address] [place] [address] [place] ALP [Catalytic activity/Vol] 158 U/L High 45-117 [facility] Comment on above: Order Comment: Speci men Type: BLOOD SPECIMEN Ordering Facility: [facility] Address: [address] [place] [address] Performed By: #### 2 4323-8, #### [facility] CLIA [id number] [address] [place] [address] [place] ALT [Catalytic activity/Vol] 31 U/L Normal 13-61 [facility] Comment on above: Order Comment: Speci men Type: BLOOD SPECIMEN Ordering Facility: [facility] Address: [address] [place] [address] Result Comment: Resu lts may be falsely depressed after the administration of Sulfasalazine and/or Sulfapyridine. Performed By: #### 2 4323-8, #### [facility] CLIA [id number] [address] [place] [address] [place] Anion gap [Moles/Vol] 3 mmol/L Low 5-16 [facility] Comment on above: Order Comment: Speci men Type: BLOOD SPECIMEN Ordering Facility: [facility] Address: [address] [place] [address] Performed By: #### 2 4323-8, #### [facility] CLIA [id number] [address] [place], [place] [address] [place] AST [Catalytic activity/Vol] 65 U/L High 8-34 [facility] Comment on above: Order Comment: Speci men Type: BLOOD SPECIMEN Ordering Facility: [facility] Address: [address] [place] [address] Result Comment: Resu lts may be falsely depressed after the administration of Sulfasalazine and/or Sulfapyridine. Performed By: #### 2 4323-8, #### [facility] CLIA [id number] [address] [place] [address] [place] Bilirubin [Mass/Vol] 2.2 mg/dL High 0.2-1.0 [facility] Comment on above: Order Comment: Speci men Type: BLOOD SPECIMEN Ordering Facility: [facility] Address: [address] [place] [address] Performed By: #### 2 4323-8, #### [facility] CLIA [id number] [address] [place] [address] [place] Calcium [Mass/Vol] 8.5 mg/dL Normal 8.5-10.5 [facility] Comment on above: Order Comment: Speci men Type: BLOOD SPECIMEN Ordering Facility: [facility] Address: [address] [place] [address] Performed By: #### 2 4323-8, #### [facility] CLIA [id number] [address] [place] [address] [place] Chloride [Moles/Vol] 106 mmol/L Normal 98-107 [facility] Comment on above: Order Comment: Speci men Type: BLOOD SPECIMEN Ordering Facility: [facility] Address: [address] [place] [address] Performed By: #### 2 4323-8, #### [facility] CLIA [id number] [address] [place], [place] [address] [place] CO2 [Moles/Vol] 28 mmol/L Normal 21-32 [facility] Comment on above: Order Comment: Speci men Type: BLOOD SPECIMEN Ordering Facility: [facility] Address: [address] [place] [id number] Performed By: #### 2 4323-8, #### [facility] CLIA [id number] [address] [place], [place] [address] [place] Creatinine [Mass/Vol] 0.68 mg/dL Normal 0.51-0.95 [facility] Comment on above: Order Comment: Speci men Type: BLOOD SPECIMEN Ordering Facility: [facility] Address: [address] [place] [address] Result Comment: Tamie ents receiving either N-Acetylcysteine (NAC) or Metamizole prior to venipuncture, may have falsely depressed results. Performed By: #### 2 4323-8, #### [facility] CLIA [id number] [address] [place] [address] OF [facility] Creatinine and Glomerular filtration rate.predicted panel (S/P/Bld) 106 mL/min/1.73m??? Normal >=60 [facility] Comment on above: Order Comment: Yeseniai cydney Type: BLOOD SPECIMEN Ordering Facility: [facility] Address: [address] [place] [address] Result Comment: Connie mated Glomerular Filtration Rate [...] actual GFR. Performed By: #### 2 4323-8, 99875-5 #### [facility] CLIA [id number] [address] [place], [place] [address] [place] Glucose [Mass/Vol] 89 mg/dL Normal 70-100 [facility] Comment on above: Order Comment: Cole cydney Type: BLOOD SPECIMEN Ordering Facility: [facility] Address: [address] [place] [address] Result Comment: The [place] [employer] (ADA) provides guidance for cutoff [...] Standards of Medical Care in Diabetes 2016, [place] [employer]. Diabetes Care. 2016.39(Suppl 1). Results may be falsely elevated after the administration of Sulfapyridine. Results may be falsely depressed after the administration of Sulfasalazine. Performed By: #### 2 4323-8, #### [facility] CLIA [id number] [address] [place] [address] [place] Potassium [Moles/Vol] 4.1 mmol/L Normal 3.5-5.1 [facility] Comment on above: Order Comment: Speci men Type: BLOOD SPECIMEN Ordering Facility: [facility] Address: [address] [place] [address] Performed By: #### 2 4322-8, #### [facility] CLIA [id number] [address] [place] [address] [place] Protein [Mass/Vol] 6.8 g/dL Normal 6.0-8.5 [facility] Comment on above: Order Comment: Speci men Type: BLOOD SPECIMEN Ordering Facility: [facility] Address: [address] [place] [address] Performed By: #### 2 4323-8, #### [facility] CLIA [id number] [address] [place] [address] [place] Sodium [Moles/Vol] 137 mmol/L Normal 136-145 [facility] Comment on above: Order Comment: Speci men Type: BLOOD SPECIMEN Ordering Facility: [facility] Address: [address] [place] [address] Performed By: #### 2 4323-8, #### [facility] CLIA [id number] [address] [place] [address] [place] Urea nitrogen [Mass/Vol] 11 mg/dL Normal 7- [facility] Comment on above: Order Comment: Speci men Type: BLOOD SPECIMEN Ordering Facility: [facility] Address: [address] [place] [address] Performed By: #### 2 4323-8, #### [facility] CLIA [id number] [address] [place] [address] [place] HCV RNA SerPl PHYLLIS+probe-aCnc on 11-19-2023 HCV RNA PHYLLIS+probe Qn Abnormal HCV RNA not detected by PCR. [facility] Comment on above: Order Comment: Speci men Type: BLOOD SPECIMEN Ordering Facility: [facility] Address: [address] [place] [address] Result Comment: HCV RNA detected by PCR. 58718 4.58 Performed By: #### 2 4323-8, #### [facility] CLIA [id number] [address] [place] [address] [place] HISTORY PHYSICALon HISTORY PHYSICAL HNO ID: [id number] Author: ELVIN MERAZ DO Service: Hospital Medicine [...] she has been evaluated multiple times at [facility] for similar symptoms. Paracentesis has been [...] PAST SURGICAL HISTORY OF 2018 liver bx [facility] FAMILY HISTORY: FAMILY HISTORY Problem Relation [...] -- -- -- -- 157.5 cm (5' 2) 86.6 kg (191 lb) 11/18/23 1644 112/62 [...] or br (more content not included)... Normal [facility] Iron and Iron binding capaci ty panelon 11-19-2023 Iron [Mass/Vol] 43 ug/dL Low 50-170 [facility] Comment on above: Order Comment: Yeseniai cydney Type: BLOOD SPECIMEN Ordering Facility: [facility] Address: [address] [place] [address] Result Comment: Tamie ents treated with metal-binding drugs (e.g.deferoxamine) may have depressed iron values, as chelated iron may not properly react in the Siemens iron assay. Performed By: #### 3 3959-8, 97718-5 #### [facility] CLIA [id number] [address] [place] [address] [place] Iron binding capacity [Mass/Vol] 286 ug/dL Normal 221-481 [facility] Comment on above: Order Comment: Cole lamas Type: BLOOD SPECIMEN Ordering Facility: [facility] Address: [address] [place] [address] Performed By: #### 3 3959-8, 88599-6 #### [facility] CLIA [id number] [address] [place] [address] [place] Iron/TIBC [Molar ratio] 15.0 % Low 22.0-44.0 [facility] Comment on above: Order Comment: Cole lamas Type: BLOOD SPECIMEN Ordering Facility: [facility] Address: [address] [place] [address] Performed By: #### 3 3959-8, 72078-6 #### [facility] CLIA [id number] [address] [place], [place] [address] [place] Lactate (Bld) [Moles/Vol]on 11-19-2023 Lactate [Moles/Vol] 5.3 mmol/L High 0.4-2.0 [facility] Comment on above: Order Comment: Cole lamas Type: BLOOD SPECIMEN Ordering Facility: [facility] Address: [address] [place] [address] Result Comment: CALL CRITICAL Performed By: #### 2 4323-8, 18331-6 #### [facility] CLIA [id number] [address] [place], [place] [address] [place] Lactate [Moles/Vol] 2.9 mmol/L High 0.4-2.0 [facility] Comment on above: Order Comment: Cole lamas Type: BLOOD SPECIMEN Ordering Facility: [facility] Address: [address] [place] [address] Performed By: #### 5 8410-2 #### [facility] CLIA [id number] [address] [place] [address] OF [place] Lactate [Moles/Vol] 5.1 mmol/L High 0.4-2.0 [facility] Comment on above: Order Comment: Cole lamas Type: BLOOD SPECIMEN Ordering Facility: [facility] Address: [address] [place] [address] Result Comment: CALL CRITICAL Performed By: #### 3 2693-4 #### [facility] CLIA [id number] [address] [place] [address] [place] Legionella Ag Ur Qlon 2023 Legionella sp Ag Ql (U) Negative Normal Negative [facility] Comment on above: Order Comment: Cole lamas Type: BLOOD SPECIMEN Ordering Facility: [facility] Address: [address] [place] [address] Performed By: #### 5 8410-2 #### [facility] CLIA [id number] [address] [place], [place] [address] [facility] [place] MEDICAL EMERon 11-19-2023 MEDICAL JACQUIE HNO ID: [id number] Author: JAMES LEO APRN.COMMUNITY SERVICE OFFICER Service: Hospital Medicine Author Type: Nurse Practitioner [...] needed, move the patient to ICU. Normal [facility] Magnesium SerPl-mCncon 11-19 Magnesium [Mass/Vol] 1.5 mg/dL Low 1.6-2.6 [facility] Comment on above: Order Comment: Cole lamas Type: BLOOD SPECIMEN Ordering Facility: [facility] Address: [address] [place] [address] Performed By: #### 2 4323-8, 34345-6 #### [facility] CLIA [id number] [address] [place] [address] [place] Procalcitonin SerPl-mCncon 0 11-19-2023 Procalcitonin [Mass/Vol] 5.62 ng/mL High 0.00-0.50 [facility] Comment on above: Order Comment: Cole lamas Type: BLOOD SPECIMEN Ordering Facility: [facility] Address: [address] [place] [address] Result Comment: PCT Concentration Interpretation PCT <=0.1 [...] septic shock. Performed By: #### 3 3959-8, 77751-1 #### [facility] CLIA [id number] [address] [address] [place], [place] [address] [place] STREPTOCOCCUS PNEUMONIAE AGo n 11-19-2023 STREPTOCOCCUS PNEUMONIAE AG STREP PNEUMO AG RESULT: Negative for Streptococcus pneumoniae antigen. Presumptive negative for pneumococcal pneumonia, suggesting no current or recent pneumococcal infection. Infection due to S.pneumoniae cannot be ruled out since the antigen present in the sample may be below the detection limit of the test. Normal [facility] Comment on above: Performed By: #### 5 8410-2 #### [facility] CLIA [id number] [address] [place] [address] [place] XR CHEST 1V [...] related to patient's garments. No definite pneumothorax Non Destructive Testing Scientist: PSCB Transcribe Date/Time: Nov 19 2023 8:47A Dictated by : SAM HENDERSON MD This examination was interpreted and the report reviewed and electronically signed by: SAM HENDERSON MD on Nov 19 2023 8:54AM EST [id number] Normal [facility] ALLIED HEALTHon 11-18-2023 ALLIED HEALTH HNO ID: [id number] Author: BROOKLYN COX RT(Noel) Service: Radiology Author Type: Technologist Type: Allied Health Filed: 11/19/2023 07:14 Note Text: Summary: ct [...] PATIENT PRESENTS WITH AN IMPLANTABLE OR ATTACHED BEHAVIORAL PSYCHOLOGIST: No ALLERGIES: Reviewed and unchanged CONTRAST ALLERGY: [...] PERIPHERAL IV DATA: Inpatient - refer to [facility] documentation RADIOLOGY DEPARTMENT: CT; Exam(s) Completed: Abdomen/Pelvis SIGNATURE: Brooklyn Cox, RT(R) PATIENT NAME: Carolina Hightower DATE: November 19, 2023 TIME: 7:14 AM [facility] ED NOTEon 11-18-2023 ED NOTE HNO ID: [id number] Author: MIKE HUTCHISON RN Service: Emergency Medicine Author Type: Registered Nurse Type: ED Notes Filed: 11/18/2023 15:50 Note Text: Second attempt to call report made, placed back on hold [facility] ED NOTE HNO ID: [id number] Author: MIKE HUTCHISON RN Service: Emergency Medicine Author Type: Registered Nurse Type: ED Notes Filed: 11/18/2023 15:49 Note Text: Attempted to call report on patient, placed on hold for 15 mins unable to give report. [facility] ED NOTE HNO ID: [id number] Author: MIKE HUTCHISON RN Service: Emergency Medicine Author Type: Registered Nurse Type: ED Notes Filed: 11/18/2023 16:05 Note Text: Patient assisted to bedside toilet, clean depends given. Offered patient wipes to clean herself up with patient wiped hands and refused to clean rest of stool off. Transport at bedside for report. [facility] ED NOTE HNO ID: [id number] Author: MIKE HUTCHISON RN Service: Emergency Medicine Author Type: Registered Nurse Type: ED Notes Filed: 11/18/2023 14:15 Note Text: [facility] ETA: 60-90mins [facility] ED NOTE HNO ID: [id number] Author: MIKE HUTCHISON RN Service: Emergency Medicine Author Type: Registered Nurse Type: ED Notes Filed: 11/18/2023 14:10 Note Text: Accepted to Pratima Hong [phone] Nurse to Nurse [phone] [facility] ED NOTE HNO ID: [id number] Author: MIKE HUTCHISON RN Service: Emergency Medicine Author Type: Registered Nurse Type: ED Notes Filed: 11/18/2023 16:15 Note Text: Pt chief librarian extension department light for having BM in depends and [...] socks. Patient then assisted back to bed. [facility] ED NOTE HNO ID: [id number] Author: MIKE HUTCHISON RN Service: Emergency Medicine Author Type: Registered Nurse Type: ED Notes Filed: 11/18/2023 09:16 Note Text: [facility] contacted by this nurse they state they are unsure when the patient will have a bed assignment. [facility] ED NOTE HNO ID: [id number] Author: MIKE HUTCHISON RN Service: Emergency Medicine Author Type: Registered Nurse Type: ED Notes Filed: 11/18/2023 16:08 Note Text: Patient had liquid BM in bed, patient assisted to bedside toilet bedding changed, clean gown given, depends given to patient, clean gown given, patient assisted back to bed. [facility] ED NOTE HNO ID: [id number] Author: MIKE HUTCHISON RN Service: Emergency Medicine Author Type: Registered Nurse Type: ED Notes Filed: 11/18/2023 09:23 Note Text: Respiratory paged for breathing treatment [facility] ED NOTE HNO ID: [id number] Author: MIKE HUTCHISON RN Service: Emergency Medicine Author Type: [...] in her nose. Dr Peterson to bedside. [facility] ED NOTE HNO ID: [id number] Author: MIKE HUTCHISON RN Service: Emergency Medicine Author Type: Registered Nurse Type: ED Notes Filed: 11/18/2023 09:19 Note Text: Patient requesting to walk to the restroom, patient assisted to the restroom [facility] ED NOTE HNO ID: [id number] Author: MIKE HUTCHISON RN Service: Emergency Medicine Author Type: Registered Nurse Type: ED Notes Filed: 11/18/2023 09:19 Note Text: Meal tray given [facility] ED NOTE HNO ID: [id number] Author: MIKE HUTCHISON RN Service: Emergency Medicine Author Type: Registered Nurse Type: ED Notes Filed: 11/18/2023 08:02 Note Text: This nurse woke patient up, patient repositioned. Oxygen placed back on. Meal tray ordered. Patient denies other needs at this time. [facility] ED NOTE HNO ID: [id number] Author: JIMI DOMINGUEZ, NASH Service: Emergency Medicine Author Type: Registered Nurse Type: ED Notes Filed: 11/18/2023 05:37 Note Text: Patient removed oxygen and will not keep pulse ox on. Call light remains in reach. SRx2 up. [facility] ED NOTE HNO ID: [id number] Author: JIMI DOMINGUEZ, NASH Service: Emergency Medicine Author Type: Registered Nurse Type: ED Notes Filed: 11/18/2023 05:08 Note Text: MD speaking with patient regarding pain control. Normal [facility] ED NOTE HNO ID: [id number] Author: JIMI DOMINGUEZ RN Service: Emergency Medicine Author Type: Registered Nurse Type: ED Notes Filed: 11/18/2023 04:33 Note Text: Patient ambulatory to RR with steady gait- po fluids given. Call light in reach [facility] ED NOTE HNO ID: [id number] Author: JIMI DOMINGUEZ RN Service: Emergency Medicine Author Type: Registered Nurse Type: ED Notes Filed: 11/18/2023 02:50 Note Text: Oxygen sats improved with oxygen while resting/sleeping to 96% on 2 liters [facility] ED NOTE HNO ID: [id number] Author: JIMI DOMINGUEZ RN Service: Emergency Medicine Author Type: Registered Nurse Type: ED Notes Filed: 11/18/2023 02:47 Note Text: Patient falling asleep and oxygen sats drop to 87-88% - oxygen applied at 2 liters [facility] ED NOTE HNO ID: [id number] Author: JIMI DOMINGUEZ RN Service: Emergency Medicine Author Type: Registered Nurse Type: ED Notes Filed: 11/18/2023 02:30 Note Text: Patient put chief librarian extension department light - requesting more ibuprofen and/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 Advised patient she just had motrin at [phone]. Patient requesting TV on. [facility] ED NOTE HNO ID: [id number] Author: JIMI DOMINGUEZ RN Service: Emergency Medicine Author Type: Registered Nurse Type: ED Notes Filed: 11/18/2023 02:59 Note Text: Sprite given along with jello and pudding. Call light in reach. No n/v [facility] ED NOTE HNO ID: [id number] Author: JIMI DOMINGUEZ RN Service: Emergency Medicine Author Type: Registered Nurse Type: ED Notes Filed: 11/18/2023 01:42 Note Text: Patient chief librarian extension department light - patient given another blanket. Patient requesting personal cell phone which was charging and given to patient. [facility] ED NOTE HNO ID: [id number] Author: JIMI DOMINGUEZ RN Service: Emergency Medicine [...] updated patient also on bed status at [facility] and that it could possibly be in the morning before we get a bed. Call light in reach. [facility] ED NOTE HNO ID: [id number] Author: JIMI DOMINGUEZ RN Service: Emergency Medicine Author Type: Registered Nurse Type: ED Notes Filed: 11/18/2023 00:48 Note Text: Patient requesting more pain meds and/or something to sleep. MD at bedside talking with patient [facility] ALLIED HEALTHon 11-17-2023 ALLIED HEALTH HNO ID: [id number] Author: MAURICE UKHN TECHNOLOGIST Service: Radiology Author Type: Technologist Type: [...] PATIENT PRESENTS WITH AN IMPLANTABLE OR ATTACHED BEHAVIORAL PSYCHOLOGIST: No RADIOLOGY DEPARTMENT: CT; Exam(s) Completed: Brain and General X-ray: Exam(s) Completed: Chest X-Ray PERIPHERAL IV DATA: Not applicable SIGNED BY: TECHNOLOGIST Marina November 17, 2023 8:44 PM [facility] APAP SerPl-mCncon 11-17-2023 Acetaminophen [Mass/Vol] 8 ug/mL Low 10-30 [facility] Comment on above: Order Comment: Speci men Type: BLOOD SPECIMENOrdering Facility: [facility] Address: [address] [place] [address] Result Comment: Toxi c > 150 ug/mL 4 hours post ingestion The [address] Varghese nomogram can be used to estimate the probability of hepatotoxicity via the relationship of plasma acetaminophen concentration to the post ingestion interval. (Sara. Pediatrics. 1975. 55:[address] et [address] Arch Cardiovascular Operating Room Nurse Med. 1981. 141:380 to 385). Reference ranges and high/low indicator flags are provided as general guidelines only. The treating physician must determine appropriate target levels/dosing based on the specific clinical situation. Performed By: #### 3 298-7, 5643-2, 4024-6 ####[facility] LABCLIA [id number] [place] [address] [place] [facility] CBC W Auto Differential pane l (Bld)on 11-17-2023 Basophils (Bld) [#/Vol] 0.03 10*3/uL Normal <0.11 [facility] Comment on above: Order Comment: Cole lamas Type: BLOOD SPECIMENOrdering Facility: [facility] Address: [address] [place] [address] Performed By: #### 5 7021-8 ####[facility] [id number] [place] [id number] [place] [facility] Basophils/100 WBC (Bld) 0.3 % Normal [facility] Comment on above: Order Comment: Cole lamas Type: BLOOD SPECIMENOrdering Facility: [facility] Address: [address] [place] [address] Result Comment: Diff erential confirmed by visual scan of peripheral blood smear slide. Performed By: #### 5 7021-8 ####[facility] LABCLIA [id number] [place] [id number] [facility] Differential cell count method Nom (Bld) Auto Normal [facility] Comment on above: Order Comment: Cole lamas Type: BLOOD SPECIMENOrdering Facility: [facility] Address: [address] [place] [address] Performed By: #### 5 7021-8 ####[facility]IA [id number] [facility] [place] [address] [place] Eosinophils (Bld) [#/Vol] 0.09 10*3/uL Normal <0.46 [facility] Comment on above: Order Comment: Speci men Type: BLOOD SPECIMENOrdering Facility: [facility] Address: [address] [place] [address] Performed By: #### 5 7021-8 ####[facility] LABCLIA [id number] [place] [address] [place] Eosinophils/100 WBC (Bld) 0.8 % Normal [facility] Comment on above: Order Comment: Speci men Type: BLOOD SPECIMENOrdering Facility: [facility] Address: [address] [place] [address] Performed By: #### 5 7021-8 ####[facility] LAB[facility]IA [id number] [place] [address] [place] Erythrocyte distribution width (RBC) [Ratio] 23.6 % High 11.5-15.0 [facility] Comment on above: Order Comment: Speci men Type: BLOOD SPECIMENOrdering Facility: [facility] Address: [address] [place] [address] Performed By: #### 5 7021-8 ####[facility] LABCLIA [id number] [place] [address] [place] Hematocrit (Bld) [Volume fraction] 33.8 % Low 36.0-46.0 [facility] Comment on above: Order Comment: Speci men Type: BLOOD SPECIMENOrdering Facility: [facility] Address: [address] [place] [address] Performed By: #### 5 7021-8 ####[facility] LABCLIA [id number] [place] [address] [place] Hemoglobin (Bld) [Mass/Vol] 10.3 g/dL Low 11.5-15.5 [facility] Comment on above: Order Comment: Speci men Type: BLOOD SPECIMENOrdering Facility: [facility] Address: [address] [place] [address] Performed By: #### 5 7021-8 ####[facility] LABCLIA [id number] [facility] [place] [address] [place] Immature granulocytes (Bld) [#/Vol] 0.08 10*3/uL Normal <0.10 [facility] Comment on above: Order Comment: Speci men Type: BLOOD SPECIMENOrdering Facility: [facility] Address: [address] [place] [address] Performed By: #### 5 7021-8 ####[facility] LABCLIA [id number] [place] [address] [place] Immature granulocytes/100 WBC (Bld) 0.7 % Normal [facility] Comment on above: Order Comment: Speci men Type: BLOOD SPECIMENOrdering Facility: [facility] Address: [address] [place] [address] Performed By: #### 5 7021-8 ####[facility] LABCLIA [id number] [facility] [place] [address] [place] Lymphocytes (Bld) [#/Vol] 2.43 10*3/uL Normal 1.00-4.00 [facility] Comment on above: Order Comment: Speci men Type: BLOOD SPECIMENOrdering Facility: [facility] Address: [address] [place] [address] Performed By: #### 5 7021-8 ####[facility] LABCLIA [id number] [facility] [place] [address] [place] Lymphocytes/100 WBC (Bld) 21.1 % Normal [facility] Comment on above: Order Comment: Speci men Type: BLOOD SPECIMENOrdering Facility: [facility] Address: [address] [place] [address] Performed By: #### 5 7021-8 ####[facility] LABCLIA [id number] [place] [address] [place] MCH (RBC) [Entitic mass] 23.7 pg Low 26.0-34.0 [facility] Comment on above: Order Comment: Speci men Type: BLOOD SPECIMENOrdering Facility: [facility] Address: [address] [place] [address] Performed By: #### 5 7021-8 ####[facility] LABCLIA [id number] [place] [address] [place] MCHC (RBC) [Mass/Vol] 30.5 g/dL Normal 30.5-36.0 [facility] Comment on above: Order Comment: Speci men Type: BLOOD SPECIMENOrdering Facility: [facility] Address: [address] [place] [address] Performed By: #### 5 7021-8 ####[facility] LABCLIA [id number] [address] [place] MCV (RBC) [Entitic vol] 77.7 fL Low 80.0-100.0 [facility] Comment on above: Order Comment: Speci men Type: BLOOD SPECIMENOrdering Facility: [facility] Address: [address] [place] [address] Performed By: #### 5 7021-8 ####[facility] LABCLIA [id number] [place] [address] [place] Monocytes (Bld) [#/Vol] 1.40 10*3/uL High <0.87 [facility] Comment on above: Order Comment: Speci men Type: BLOOD SPECIMENOrdering Facility: [facility] Address: [address] [place] [address] Performed By: #### 5 7021-8 ####[facility] LABCLIA [id number] [place] [address] [facility] Monocytes/100 WBC (Bld) 12.2 % Normal [facility] Comment on above: Order Comment: Speci men Type: BLOOD SPECIMENOrdering Facility: [facility] Address: [address] [place] [address] Performed By: #### 5 7021-8 ####[facility] LABCLIA [id number] [facility] [place] [address] [place] Neutrophils (Bld) [#/Vol] 7.47 10*3/uL Normal 1.45-7.50 [facility] Comment on above: Order Comment: Speci men Type: BLOOD SPECIMENOrdering Facility: [facility] Address: [address] [place] [address] Performed By: #### 5 7021-8 ####[facility] LABCLIA [id number] [place] [address] [place] Neutrophils/100 WBC (Bld) 64.9 % Normal [facility] Comment on above: Order Comment: Speci men Type: BLOOD SPECIMENOrdering Facility: [facility] Address: [address] [place] [address] Performed By: #### 5 7021-8 ####[facility] LABCLIA [id number] [facility] [place] [address] [place] Nucleated RBC (Bld) [#/Vol] Normal [facility] Comment on above: Order Comment: Speci men Type: BLOOD SPECIMENOrdering Facility: [facility] Address: [address] [place] [address] Performed By: #### 5 7021-8 ####[facility] LABCLIA [id number] [facility] [place] [address] [place] Nucleated RBC/100 WBC (Bld) [Ratio] Normal [facility] Comment on above: Order Comment: Speci men Type: BLOOD SPECIMENOrdering Facility: [facility] Address: [address] [place] [address] Performed By: #### 5 7021-8 ####[facility] LABCLIA [id number] [facility] [place] [address] [place] Platelet mean volume (Bld) [Entitic vol] 9.8 fL Normal 9.0-12.7 [facility] Comment on above: Order Comment: Speci men Type: BLOOD SPECIMENOrdering Facility: [facility] Address: [address] [place] [address] Performed By: #### 5 7021-8 ####[facility] LABCLIA [id number] [place] [address] [facility] Platelets (Bld) [#/Vol] 112 10*3/uL Low 150-400 [facility] Comment on above: Order Comment: Speci men Type: BLOOD SPECIMENOrdering Facility: [facility] Address: [address] [place] [address] Result Comment: no c lot detected Platelet Abnormal Distribution.Reviewed. Performed By: #### 5 7021-8 ####[facility] LABCLIA [id number] [address] RBC (Bld) [#/Vol] 4.35 10*6/uL Normal 3.90-5.20 [facility] Comment on above: Order Comment: Speci men Type: BLOOD SPECIMENOrdering Facility: [facility] Address: [address] [place] [address] Performed By: #### 5 7021-8 ####[facility] LABCLIA [id number] [place] [id number] [facility] WBC (Bld) [#/Vol] 11.50 10*3/uL High 3.70-11.00 [facility] Comment on above: Order Comment: Speci men Type: BLOOD SPECIMENOrdering Facility: [facility] Address: [address] [place] [address] Performed By: #### 5 7021-8 ####[facility] LABCLIA [id number] [place] [address] [facility] CT BRAIN WO IVCONon 11-17-[address] BRAIN WO IVCON * * *Final Report* * * DATE OF EXAM: Nov 17 2023 8:40PM [facility] 0504 - CT BRAIN WO [...] control(AEC) and iterative recon COMPARISON: None. RESULT: Assistant Food Service Director (topogram) images: No additional findings. Post-operative change: [...] are unremarkable. IMPRESSION: No acute intracranial abnormality. Non Destructive Testing Scientist: [facility] Transcribe Date/Time: Nov 17 2023 8:41P Dictated by : MAYITO STEVENS MD This examination was interpreted and the report reviewed and electronically signed by: MAYITO STEVENS MD on Nov 17 2023 8:47PM EST [id number] Normal [facility] Comprehensive metabolic 2000 panelon 11-17-2023 Albumin [Mass/Vol] 2.6 g/dL Low 3.9-4.9 [facility] Comment on above: Order Comment: Cole lamas Type: BLOOD SPECIMENOrdering Facility: [facility] Address: [address] [place] [address] Performed By: #### 2 4323-8, 80399-3, 76616-3, 3040-3 ####[facility] LABCLNY [id number] [place] [address] [place] ALP [Catalytic activity/Vol] 245 U/L High 34-123 [facility] Comment on above: Order Comment: Cole lamas Type: BLOOD SPECIMENOrdering Facility: [facility] Address: [address] [place] [address] Performed By: #### 2 4323-8, 38531-3, 44395-5, 3040-3 ####[facility] LABCLIA [id number] [place] [address] [place] ALT With P-5'-P [Catalytic activity/Vol] 29 U/L Normal 7-38 [facility] Comment on above: Order Comment: Speci men Type: BLOOD SPECIMENOrdering Facility: [facility] Address: [address] [place] [address] Performed By: #### 2 4323-8, 94295-0, 77930-5, 3040-3 ####[facility] LABCLIA [id number] [place] [address] [place] Anion gap [Moles/Vol] 9 mmol/L Normal 9-18 [facility] Comment on above: Order Comment: Speci men Type: BLOOD SPECIMENOrdering Facility: [facility] Address: [address] [place] [address] Performed By: #### 2 4323-8, 68017-0, 82714-1, 3040-3 ####[facility] LABCLIA [id number] [place] [address] [place] AST With P-5'-P [Catalytic activity/Vol] 78 U/L High 13-35 [facility] Comment on above: Order Comment: Speci men Type: BLOOD SPECIMENOrdering Facility: [facility] Address: [address] [place] [address] Performed By: #### 2 4323-8, 55350-4, 01062-5, 3040-3 ####[facility] LABCLIA [id number] [place] [address] [place] Bilirubin [Mass/Vol] 3.0 mg/dL High 0.2-1.3 [facility] Comment on above: Order Comment: Speci men Type: BLOOD SPECIMENOrdering Facility: [facility] Address: [address] [place] [address] Performed By: #### 2 4323-8, 77148-4, 43205-4, 3040-3 ####[facility] LABCLIA [id number] [place] [address] [place] Calcium [Mass/Vol] 8.6 mg/dL Normal 8.5-10.2 [facility] Comment on above: Order Comment: Speci men Type: BLOOD SPECIMENOrdering Facility: [facility] Address: [address] [place], [place] [address] Performed By: #### 2 4323-8, 78376-3, 70233-5, 3040-3 ####[facility] LABCLIA [id number] [place] [address] [place] Chloride [Moles/Vol] 101 mmol/L Normal 97-105 [facility] Comment on above: Order Comment: Speci men Type: BLOOD SPECIMENOrdering Facility: [facility] Address: [address] [place] [address] Performed By: #### 2 4323-8, 54014-5, 93287-8, 3040-3 ####[facility] LABCLIA [id number] [place] [address] [place] CO2 [Moles/Vol] 24 mmol/L Normal 22-30 [facility] Comment on above: Order Comment: Speci men Type: BLOOD SPECIMENOrdering Facility: [facility] Address: [address] [place], [place] [address] Performed By: #### 2 4323-8, 20606-6, 17102-8, 3040-3 ####[facility] LABCLIA [id number] [place] [address] [place] Creatinine [Mass/Vol] 0.72 mg/dL Normal 0.58-0.96 [facility] Comment on above: Order Comment: Speci men Type: BLOOD SPECIMENOrdering Facility: [facility] Address: [address] [place], [place] [address] Performed By: #### 2 4323-8, 87863-5, 78066-0, 3040-3 ####[facility] LABCLIA [id number] [place] [address] [place] Creatinine and Glomerular filtration rate.predicted panel (S/P/Bld) 102 mL/min/1.73m??? Normal >=60 [facility] Comment on above: Order Comment: Cole lamas Type: BLOOD SPECIMENOrdering Facility: [facility] Address: [address] [place] [address] Result Comment: Connie mated Glomerular Filtration Rate [...] actual GFR. Performed By: #### 2 4323-8, 23708-0, 05233-5, 3040-3 ####[facility] LABIA [id number] [place] [address] [place] Glucose [Mass/Vol] 121 mg/dL High 74-99 [facility] Comment on above: Order Comment: Cole lamas Type: BLOOD SPECIMENOrdering Facility: [facility] Address: [address] [place] [address] Result Comment: The [place] Diabetes Association (ADA) provides guidance for cutoff [...] Standards of Medical Care in Diabetes 2016, [place] [employer]. Diabetes Care. 2016.39(Suppl 1). Performed By: #### 2 4323-8, 02989-8, 48823-6, 3040-3 ####[facility] LABCLIA [id number] [place] [address] [place] Potassium [Moles/Vol] 4.0 mmol/L Normal 3.7-5.1 [facility] Comment on above: Order Comment: Speci men Type: BLOOD SPECIMENOrdering Facility: [facility] Address: [address] [place] [address] Performed By: #### 2 4323-8, 66845-8, 59004-0, 3040-3 ####[facility] LABCLIA [id number] [place] [address] [place] Protein [Mass/Vol] 7.8 g/dL Normal 6.3-8.0 [facility] Comment on above: Order Comment: Speci men Type: BLOOD SPECIMENOrdering Facility: [facility] Address: [address] [place] [address] Performed By: #### 2 4323-8, 73472-0, 50322-6, 3040-3 ####[facility] LABCLIA [id number] [place] [address] [place] Sodium [Moles/Vol] 134 mmol/L Low 136-144 [facility] Comment on above: Order Comment: Speci men Type: BLOOD SPECIMENOrdering Facility: [facility] Address: [address] [place] [address] Performed By: #### 2 4323-8, 49424-1, 45867-9, 3040-3 ####[facility] LABCLIA [id number] [place] [address] [place] Urea nitrogen [Mass/Vol] 9 mg/dL Normal 7-21 [facility] Comment on above: Order Comment: Speci men Type: BLOOD SPECIMENOrdering Facility: [facility] Address: [address] [place] [address] Performed By: #### 2 4323-8, 59820-8, 21423-8, 3040-3 ####[facility] LABCLIA [id number] [place] [address] [place] ECG COMPLETEon 11-17-2023 ECG COMPLETE Ventricular Rate : 8 2 BPM Atrial Rate : 82 BPM P-R Interval : 152 ms QRS Duration : 74 ms Q-T Interval : 400 ms QTC Calculation(Bazett) : 467 ms Calculated P [place] : 63 degrees Calculated R [place] : 2 degrees Calculated T [place] : 65 degrees NORMAL SINUS RHYTHM NONSPECIFIC ST-T WAVE CHANGES CANNOT RULE OUT ANTERIOR INFARCT , AGE UNDETERMINED ABNORMAL ECG NO PREVIOUS ECGS AVAILABLE Confirmed by MD BENZ VINAYAK ([id number]) on 11/22/2023 8:00:16 AM NAME : CAROLINA HIGHTOWER PID : [id number] : 1975 Gender : Female Race : ORD : [id number] Procedure Date : Nov 17 2023 19:48:43 Edit Date : Nov 22 2023 08:00:20 Diagnosis: NORMAL SINUS RHYTHM NONSPECIFIC ST-T WAVE CHANGES CANNOT RULE OUT ANTERIOR INFARCT , AGE UNDETERMINED ABNORMAL ECG NO PREVIOUS ECGS AVAILABLE Confirmed by MD BENZ VINAYAK ([id number]) on 11/22/2023 8:00:16 AM Test Reason : Chest Pain Location : 191 : [facility] ED Overread By : MD BENZ VINAYAK Edited By : MD BENZ VINAYAK Referred By : , Acquired by : TRESA NGUYEN [facility] ED NOTEon 11-17-2023 ED NOTE HNO ID: [id number] Author: JIMI DOMINGUEZ RN Service: Emergency Medicine Author Type: Registered Nurse Type: ED Notes Filed: 11/17/2023 20:40 Note Text: Patient absolutely refuses to go to [place] or [place] or [facility]. notified [facility] ED NOTE HNO ID: [id number] Author: JIMI DOMINGUEZ RN Service: Emergency Medicine Author Type: Registered Nurse Type: ED Notes Filed: 11/17/2023 20:18 Note Text: Patient ambulatory to with steady gait. Urine obtained and sent [facility] ED NOTE HNO ID: [id number] Author: JIMI DOMINGUEZ RN Service: Emergency Medicine Author Type: Registered Nurse Type: ED Notes Filed: 11/17/2023 19:42 Note Text: Patient brought to ER by daughter - patient states seen at [facility] times and per her PCP told to go to another ER. Per daughter patient is confused, abd swelling and SOB and dizziness with frequent falls. Monitor applied. EKG obtained. Normal [facility] ED PROV NOTEon 11-17-2023 ED PROV NOTE HNO ID: [id number] Author: KOKO RUIZ MD Service: Emergency Medicine [...] distended than baseline. She typically follows at [facility] and has been seen there several [...] PAST SURGICAL HISTORY OF 2018 liver bx [facility] FAMILY HISTORY Problem Relation Age of [...] (211 lb 12.8 oz) 1.575 m (5' 2) Physical Exam Vitals and nursing note reviewed. [...] Palpations: Abd (more content not included)... Normal [facility] Ethanol SerPl-mCncon 024 Ethanol [Mass/Vol] mg/dL Normal <11 [facility] Comment on above: Order Comment: Speci men Type: BLOOD SPECIMENOrdering Facility: [facility] Address: [address] [place] [address] Performed By: #### 3 298-7, 5643-2, 4024-6 ####[facility] LABCLIA [id number] [place] [address] [place] FLUABV+SARS-CoV-2+RSV Pnl Re sp PHYLLIS+probeon 11-17-2023 FLUABV+SARS-CoV-2+RSV Pnl Resp PHYLLIS+probe COVID 19 RESULT: Not detected The method used is RT-PCR or an equivalent NAAT method. Reference Range(the expected result in uninfected individuals): Not detected INFLUENZA A PCR: Not detected INFLUENZA B PCR: Not detected RSV PCR: Not detected Normal [facility] Comment on above: Performed By: #### 9 5941-1 ####[facility] LABCLIA [id number] [place] [address] [place] HIGH SENSITIVITY TROPONIN T (INITIAL)on 11-17-2023 Troponin T.cardiac High sensitivity method [Mass/Vol] 16 ng/L High <12 [facility] Comment on above: Order Comment: Speci men Type: BLOOD SPECIMENOrdering Facility: [facility] Address: [address] [place] [address] Result Comment: When assessing risk for acute [...] 30 day MACE. Performed By: #### L [id number] ####[facility] LABCLIA [id number] [place] [address] [facility] [place] HIGH SENSITIVITY TROPONIN T (SECOND)on 11-17-2023 Troponin T.cardiac High sensitivity method [Mass/Vol] 16 ng/L High <12 [facility] Comment on above: Order Comment: Cole lamas Type: BLOOD SPECIMENOrdering Facility: [facility] Address: [address] [place] [address] Result Comment: When assessing risk for acute [...] 30 day MACE. Performed By: #### L [id number] ####[facility] LABCLIA [id number] [place] [id number] [facility] HIGH SENSITIVITY TROPONIN T (THIRD) 3 HRS AFTER INITIALon 11-17-2023 Troponin T.cardiac High sensitivity method [Mass/Vol] 13 ng/L High <12 [facility] Comment on above: Order Comment: Cole lamas Type: BLOOD SPECIMENOrdering Facility: [facility] Address: [address] [place] [address] Result Comment: When assessing risk for acute [...] 30 day MACE. Performed By: #### L [id number] ####[facility] LABCLIA [id number] [place] [address] [place] Lipase SerPl-cCncon 11-17-19 24 Lipase [Catalytic activity/Vol] 23 U/L Normal 16-61 [facility] Comment on above: Order Comment: Speci men Type: BLOOD SPECIMENOrdering Facility: [facility] Address: [address] [place] [address] Performed By: #### 2 4323-8, 86956-0, 32590-0, 3040-3 ####[facility] LABCLIA [id number] [place] [address] [facility] Magnesium SerPl-mCncon 11-17 Magnesium [Mass/Vol] 1.6 mg/dL Low 1.7-2.3 [facility] Comment on above: Order Comment: Speci men Type: BLOOD SPECIMENOrdering Facility: [facility] Address: [address] [place] [address] Performed By: #### 2 4323-8, 28614-2, 97711-5, 3040-3 ####[facility] LABCLIA [id number] [place] [address] [facility] NT-proBNP SerPl-mCncon 11-17 Natriuretic peptide.B prohormone N-Terminal [Mass/Vol] 83 pg/mL Normal <125 [facility] Comment on above: Order Comment: Speci men Type: BLOOD SPECIMENOrdering Facility: [facility] Address: [address] [place] [address] Performed By: #### 2 4323-8, 24178-2, 27339-6, 3040-3 ####[facility] LABCLIA [id number] [place] [address] [facility] Salicylates SerPl-mCncon Salicylates [Mass/Vol] mg/dL Low 3.0-30.0 [facility] Comment on above: Order Comment: Speci men Type: BLOOD SPECIMENOrdering Facility: [facility] Address: [address] [place] [address] Result Comment: The therapeutic range varies and has been reported to be 3.0 to 10.0 mg/dL for anti pyretic/analgesic conditions and 15.0 to 30.0 mg/dL for anti inflammatory/rheumatic fever conditions. Ranges published by the instrument supervisor looping. Reference ranges and high/low indicator flags are provided as general guidelines only. The treating physician must determine appropriate target levels/dosing based on the specific clinical situation. Performed By: #### 3 298-7, 5643-2, 4024-6 ####[facility] LABCLIA [id number] [place] [address] [facility] TOX SCREEN ROUT URon 024 Amphetamines Confirm (U) [Mass/Vol] Negative Normal Negative [facility] Comment on above: Order Comment: Speci men Type: URINE SPECIMENOrdering Facility: [facility] Address: [address] [place] [address] Result Comment: Cuto ff threshold at 1000 ng/mL. Performed By: #### U TOX2 ####[facility] LABCLIA [id number] [place] [address] [place] BARBITURATES, URINE Negative Normal Negative [facility] Comment on above: Order Comment: Speci men Type: URINE SPECIMENOrdering Facility: [facility] Address: [address] [place] [address] Result Comment: Cuto ff threshold at 200 ng/mL. Performed By: #### U TOX2 ####[facility] LABCLIA [id number] [place] [address] [place] BENZODIAZEPINES, UR Negative Normal Negative [facility] Comment on above: Order Comment: Speci men Type: URINE SPECIMENOrdering Facility: [facility] Address: [address] [place] [address] Result Comment: Cuto ff threshold at 200 ng/mL. Performed By: #### U TOX2 ####[facility] LABCLIA [id number] [place] [address] [place] Cannabinoids Screen Ql (U) Positive Abnormal Negative [facility] Comment on above: Order Comment: Speci men Type: URINE SPECIMENOrdering Facility: [facility] Address: [address] [place] [address] Result Comment: Cuto ff threshold at 50 ng/mL. Performed By: #### U TOX2 ####[facility] LABCLIA [id number] [place] [address] [facility] Cocaine Ql (U) Negative Normal Negative [facility] Comment on above: Order Comment: Speci men Type: URINE SPECIMENOrdering Facility: [facility] Address: [address] [place] [address] Result Comment: Cuto ff threshold at 300 ng/mL. Performed By: #### U TOX2 ####[facility] LABCLIA [id number] [place] [address] [place] Ethanol (U) [Mass/Vol] <11 Normal <11 [facility] Comment on above: Order Comment: Speci men Type: URINE SPECIMENOrdering Facility: [facility] Address: [address] [place] [address] Performed By: #### U TOX2 ####[facility] LABCLIA [id number] [place] [address] [facility] Opiates Screen Ql (U) Negative Normal Negative [facility] Comment on above: Order Comment: Speci men Type: URINE SPECIMENOrdering Facility: [facility] Address: [address] [place] [address] Result Comment: Cuto ff threshold at 300 ng/mL. Performed By: #### U TOX2 ####[facility] LABCLIA [id number] [place] [address] [facility] oxyCODONE cutoff Screen (U) [Mass/Vol] Negative Normal Negative [facility] Comment on above: Order Comment: Speci men Type: URINE SPECIMENOrdering Facility: [facility] Address: [address] [place] [address] Result Comment: Cuto ff threshold at 100 ng/mL. Performed By: #### U TOX2 ####[facility] LABCLIA [id number] [place] [address] [facility] Phencyclidine Ql (U) Negative Normal Negative [facility] Comment on above: Order Comment: Speci men Type: URINE SPECIMENOrdering Facility: [facility] Address: [address] [place] [address] Result Comment: Cuto ff threshold at 25 ng/mL. Performed By: #### U TOX2 ####[facility] LABCLIA [id number] [place] [address] [facility] Urinalysis complete panel (U )on 11-17-2023 Bacteria LM.HPF (Urine sed) [#/Area] Few Abnormal None Seen [facility] Comment on above: Order Comment: Speci men Type: URINE SPECIMENOrdering Facility: [facility] Address: [address] [place] [address] Performed By: #### 2 4356-8 ####[facility] LABCLIA [id number] [place] [id number] [facility] Bilirubin Ql (U) 2+ Abnormal Negative [facility] Comment on above: Order Comment: Speci men Type: URINE SPECIMENOrdering Facility: [facility] Address: [address] [place] [address] Result Comment: Sugg est correlation with clinical findings and serum bilirubin if clinically indicated. Performed By: #### 2 4356-8 ####[facility] LABCLIA [id number] [place] [address] [facility] [place] Clarity (Unsp spec) Slightly Cloudy Abnormal Clear [facility] Comment on above: Order Comment: Speci men Type: URINE SPECIMENOrdering Facility: [facility] Address: [address] [place] [address] Performed By: #### 2 4356-8 ####[facility] LABCLIA [id number] [place] [address] [facility] Color (U) Mike Abnormal Yellow [facility] Comment on above: Order Comment: Speci men Type: URINE SPECIMENOrdering Facility: [facility] Address: [address] [place] [address] Performed By: #### 2 4356-8 ####[facility] LABCLIA [id number] [facility] [place] [address] [facility] Epithelial cells LM.HPF (Urine sed) [#/Area] Few Normal [facility] Comment on above: Order Comment: Speci men Type: URINE SPECIMENOrdering Facility: [facility] Address: [address] [place] [address] Performed By: #### 2 4356-8 ####[facility] LABCLIA [id number] [facility] [place] [address] [facility] Glucose Test strip (U) [Mass/Vol] Negative Normal Negative [facility] Comment on above: Order Comment: Speci men Type: URINE SPECIMENOrdering Facility: [facility] Address: [address] [place] [address] Performed By: #### 2 4356-8 ####[facility] LABCLIA [id number] [place] [address] [facility] Hemoglobin Ql (U) 1+ Abnormal Negative [facility] Comment on above: Order Comment: Speci men Type: URINE SPECIMENOrdering Facility: [facility] Address: [address] [place] [address] Performed By: #### 2 4356-8 ####[facility] LABCLIA [id number] [place] [address] [place] Ketones Ql (U) Negative Normal Negative [facility] Comment on above: Order Comment: Speci men Type: URINE SPECIMENOrdering Facility: [facility] Address: [address] [place] [address] Performed By: #### 2 4356-8 ####[facility] LABCLIA [id number] [place] [address] [place] Leukocyte esterase Test strip Ql (U) Negative Normal Negative [facility] Comment on above: Order Comment: Speci men Type: URINE SPECIMENOrdering Facility: [facility] Address: [address] [place] [address] Performed By: #### 2 4356-8 ####[facility] LABCLIA [id number] [place] [address] [place] Nitrite Ql (U) Negative Normal Negative [facility] Comment on above: Order Comment: Speci men Type: URINE SPECIMENOrdering Facility: [facility] Address: [address] [place] [address] Performed By: #### 2 4356-8 ####[facility] LABCLIA [id number] [place] [address] [place] pH (U) 6.0 [pH] Normal 5.0-8.0 [facility] Comment on above: Order Comment: Speci men Type: URINE SPECIMENOrdering Facility: [facility] Address: [address] [place] [address] Performed By: #### 2 4356-8 ####[facility] LABCLIA [id number] [place] [address] [place] Protein (U) [Mass/Vol] 1+ Abnormal Negative [facility] Comment on above: Order Comment: Speci men Type: URINE SPECIMENOrdering Facility: [facility] Address: [address] [place] [address] Performed By: #### 2 4356-8 ####[facility] LABCLIA [id number] [place] [address] [place] RBC LM.HPF (Urine sed) [#/Area] 6-10 /HPF Abnormal 0-3 /HPF [facility] Comment on above: Order Comment: Speci men Type: URINE SPECIMENOrdering Facility: [facility] Address: [address] [place] [address] Performed By: #### 2 4356-8 ####[facility] LABCLIA [id number] [place] [address] [place] Specific gravity (U) [Rel density] >=1.030 High 1.005-1.030 [facility] Comment on above: Order Comment: Speci men Type: URINE SPECIMENOrdering Facility: [facility] Address: [address] [place] [address] Performed By: #### 2 4356-8 ####[facility] LABCLIA [id number] [place] [address] [facility] Urobilinogen Ql (U) 4.0 EU/dL Abnormal 0.2-1.0 EU/dL [facility] Comment on above: Order Comment: Speci men Type: URINE SPECIMENOrdering Facility: [facility] Address: [address] [place] [address] Performed By: #### 2 4356-8 ####[facility] LABCLIA [id number] [place] [id number] [facility] WBC LM.HPF (Urine sed) [#/Area] 0-5 /HPF Normal 0-5 /HPF [facility] Comment on above: Order Comment: Speci men Type: URINE SPECIMENOrdering Facility: [facility] Address: [address] [place] [address] Performed By: #### 2 4356-8 ####[facility] LABCLIA [id number] [place] [id number] [facility] XR CHEST 1V FRONTALon 2023 XR CHEST [...] viral pneumonitis in the appropriate clinical setting. Non Destructive Testing Scientist: POOJA Transcribe Date/Time: Nov 17 2023 8:50P Dictated by : ARMANDO RAY DO This examination was interpreted and the report reviewed and electronically signed by: ARMANDO RAY DO on Nov 17 2023 8:51PM EST [id number] Normal [facility] CNPNon 11-11-2023 CNPN Telephone (FAMPWS) CAROLINA HIGHTOWER ([id number]) 1975 F Date Time Provider Department 11/11/23 [facility] During your visit today, we recorded the following information about you: Janna Rao, NASH 11/11/2023 10:57 AM Signed Patient calling [...] tearful. Reports she is having excruciating belly pain. Reports she has been to [facility] ER 3 times in last week. [...] Provider. Patient unable to confirm any upcoming [facility] appt as of now. This nurse attempted to contact [facility] x 3-no answer at this time and voicemail asks to leave message and they will return call within 24 hours. Pt asking if she must go back to [facility] ER now or can she try [...] Status:Closed by MELISA VICK MA on 11/11/23 Normal [facility] Absolute lymphocyte countOrd ered By: Erik Cordova on 11-10-2023 Lymphocytes Auto (Unsp spec) [#/Vol] 1.49 10*3/uL 0.83-4.[address] [facility] Automated lymphocyte count a s percentage of total leukocytesOrdered By: Erik Cordova on 11-10-2023 Lymphocytes/100 WBC Auto (Unsp spec) 34.5 % 19-[address] [facility] Basophil percentageOrdered B y: Erik Cordova on 11-10-2023 Basophil percentage 10.3 g/dL 12.0-15.0 [facility] Basophil percentage 92 mg/dL 74-106 [facility] Basophil percentage 6.5 g/dL 6.4-8.2 [facility] Basophil percentage 1.60 mg/dL 0.20-1.00 [facility] Basophil percentage 142 mmol/L 136-145 [facility] Basophil percentage 4.3 mmol/L 3.5-5.1 [facility] Basophil percentage 113 mmol/L 98-107 [facility] Basophil percentage < 10.0 umol/L 11-32 [facility] Basophils (Bld) [#/Vol] 4.3 10*3/uL 4.4-11.[address] [facility] Basophils (Bld) [#/Vol] 2.5 10*3/uL 2.0-7.[address] [facility] Basophils/100 WBC (Bld) 57.4 % 47-[address] [facility] Basophils/100 WBC (Bld) 6.7 % 0-[address] [facility] Basophils/100 WBC (Bld) 0.7 % 0-[address] [facility] Basophils/100 WBC (Bld) 0.5 % 0-[address] [facility] Bilirubin [Mass/Vol] 1.60 mg/dL 0.20-1.00 [facility] Comment on above: For patients on eltr ombopag therapy, use of Dimension [place] TBIL is not recommended. Chloride [Moles/Vol] 113 mmol/L 98-107 [facility] Eosinophils/100 WBC (Bld) 0.7 % 0-[address] [facility] Glucose [Mass/Vol] 92 mg/dL 74-106 [facility] Hemoglobin (Bld) [Mass/Vol] 10.3 g/dL 12.0-15.[address] [facility] Monocytes/100 WBC (Bld) 6.7 % 0-[address] [facility] Neutrophils (Bld) [#/Vol] 2.5 10*3/uL 2.0-7.[address] [facility] Neutrophils/100 WBC (Bld) 57.4 % 47-[address] [facility] Potassium [Moles/Vol] 4.3 mmol/L 3.5-5.1 [facility] Protein [Mass/Vol] 6.5 g/dL 6.4-8.2 [facility] Sodium [Moles/Vol] 142 mmol/L 136-145 [facility] WBC (Bld) [#/Vol] 4.3 10*3/uL 4.4-11.0 [facility] Blood platelet adequacy dete ction by light microscopyOrdered By: Erik Cordova on 11-10-2023 Platelets LM Ql (Bld) MOD DEC ADEQ [facility] Determination of erythrocyte mean corpuscular volume (MCV)Ordered By: Erik Cordova on 11-10-2023 MCV (RBC) [Entitic vol] 77.2 fL 81-[address] [facility] Direct bilirubinOrdered By: Erik Cordova on 11-10-2023 Bilirubin.direct [Mass/Vol] 0.89 mg/dL 0.00-0.[address] [facility] Erythrocyte distribution wid th ratioOrdered By: Erik Cordova on 11-10-2023 Erythrocyte distribution width (RBC) [Ratio] 21.2 % 11.6-14.[address] [facility] Erythrocyte distribution wid th standard deviationOrdered By: Erik Cordova on 11-10-2023 Erythrocyte distribution width (RBC) [Entitic vol] 59.1 fL 35.1-43.[address] [facility] Hematocrit Auto (Bld) [Volum e fraction]Ordered By: Erik Cordova on 11-10-2023 Hematocrit (Bld) [Volume fraction] 33.9 % 37-[address] [facility] Immature granulocytes/100 WB C Auto (Bld)Ordered By: Erik Cordova on 11-10-2023 Immature granulocytes/100 WBC (Bld) 0.200 % 0.0-0.[address] [facility] Comment on above: IG% - Immature Granu locytes (promyelocytes, myelocytes and metamyelocytes) > 1% indicates that a LEFT SHIFT is Present. Laboratory - Chemistry and C hemistry - challengeOrdered By: Erik Cordova on 11-10-2023 ALP [Catalytic activity/Vol] 157 U/L 45-[address] [facility] ALT [Catalytic activity/Vol] 46 U/L 13-[address] [facility] CO2 [Moles/Vol] 24.0 mmol/L 21.0-32.[address] [facility] Globulin (S) [Mass/Vol] 4.3 g/dL 2.2-4.[address] [facility] Lipase [Catalytic activity/Vol] 47 U/L 13-[address] [facility] Comment on above: Please note:LIPASE r evised reference range effective 23. New Lipase methodology. Expected to produce lower values than the previous assay method. NEW Reference Range: 13 - 75 U/L Urea nitrogen/Creatinine [Mass ratio] 11.5 mg/mg 10-[address] [facility] Laboratory - CoagulationOrde red By: Erik Cordova on 11-10-2023 INR Coag (Bld) [Relative time] 1.6 {INR} [facility] PT Coag (PPP) [Time] 19.0 s 11.7-14.9 [facility] Laboratory - Hematology and Cell countsOrdered By: Erik Cordova on 11-10-2023 Anisocytosis Ql (Bld) 1+ [facility] MCH (RBC) [Entitic mass] 23.5 pg 27.0-32.[address] [facility] MCHC (RBC) [Mass/Vol] 30.4 g/dL 32-36 [facility] Nucleated RBC/100 WBC (Bld) [Ratio] 0 % 0-[address] [facility] Platelets (Bld) [#/Vol] 62 10*3/uL 150-[address] [facility] No Panel InformationOrdered By: Erik Cordova on 11-10-2023 Estimated GFR (MDRD) Amer 100 mL/min >[address] [facility] Comment on above: GFR Calc Estimated GFR (MDRD) Non-Af Amer 83 mL/min >[address] [facility] Comment on above: Non- GFR Calc Mean Platelet Volume TNP [facility] Comment on above: Test not performed 23.5 pg 27.0-32.[address] [facility] 30.4 g/dL 32-[address] [facility] 62 K/mm3 150-[address] [facility] TNP [facility] 0 % 0-[address] [facility] 1+ [facility] 19.0 SECONDS 11.7-14.[address] [facility] 1.[address] [facility] 83 mL/min >[address] [facility] 100 mL/min >[address] [facility] 11.5 RATIO 10-[address] [facility] 4.3 g/dL 2.2-4.[address] [facility] 47 U/L -[address] [facility] 157 U/L 45-[address] [facility] 46 U/L 13-[address] [facility] 24.0 mmol/L 21.0-32.[address] [facility] Ovalocyte detectionOrdered B y: Erik Cordova on 11-10-2023 Ovalocytes LM Ql (Bld) RARE [facility] RBC Auto (Bld) [#/Vol]Ordere d By: Erik Cordova on 11-10-2023 RBC (Bld) [#/Vol] 4.39 10*6/uL 4.2-5.4 [facility] RBC morphologyOrdered By: Jose Cordova on 11-10-2023 RBC morphology finding Nom (Bld) N CHROM NORMAL NORM C&C [facility] Serum or plasma calcium latrice urement (mass/volume)Ordered By: Erik Cordova on 11-10-2023 Calcium [Mass/Vol] 8.5 mg/dL 8.5-10.1 [facility] Serum or plasma creatinine m easurement (mass/volume)Ordered By: Erik Cordova on 11-10-2023 Creatinine [Mass/Vol] 0.78 mg/dL 0.55-1.02 [facility] Comment on above: The validity of the calculated GFR & GFRAA in patients over 70 years has not been determined. Clinical correlation is essential. Serum or plasma urea nitroge n measurement (mass/volume)Ordered By: Erik Cordova on 11-10-2023 Urea nitrogen [Mass/Vol] 9 mg/dL 7-[address] [facility] Thin prep Papanicolaou smear with manual screeningOrdered By: Erik Cordova on 11-10-2023 Thin prep Papanicolaou smear with manual screening 1+ [facility] Thin prep Papanicolaou smear with manual screening 2.2 g/dL 3.2-5.[address] [facility] Thin prep Papanicolaou smear with manual screening 109 U/L 15-[address] [facility] Thin prep Papanicolaou smear with manual screening 5 5-[address] [facility] Absolute lymphocyte countOrd ered By: Yimi Hutchinson on 11-07-2023 Lymphocytes Auto (Unsp spec) [#/Vol] 0.74 10*3/uL 0.83-4.[address] [facility] Activated partial thrombopla stin time (aPTT) in platelet poor plasma by coagulation aOrdered By: Yimi Hutchinson on 11-07-2023 aPTT Coag (PPP) [Time] 43.8 s 24.1-36.2 [facility] Anaerobic cultureOrdered By: Yimi Hutchinson on 11-07-2023 Bacteria identified Anaer cx Nom (Unsp spec) No growth in [address] [facility] Automated lymphocyte count a s percentage of total leukocytesOrdered By: Yimi Hutchinson on 11-07-2023 Lymphocytes/100 WBC Auto (Unsp spec) 23.6 % 19-[address] [facility] Basophil percentageOrdered B y: Yimi Hutchinson on 11-07-2023 Basophil percentage 25-50 SEEN /hpf 0-[address] [facility] Basophil percentage 9.5 g/dL 12.0-15.0 [facility] Basophil percentage 92 mg/dL 74-106 [facility] Basophil percentage 7.0 g/dL 6.4-8.2 [facility] Basophil percentage 2.10 mg/dL 0.20-1.00 [facility] Basophil percentage 142 mmol/L 136-145 [facility] Basophil percentage 3.6 mmol/L 3.5-5.1 [facility] Basophil percentage 113 mmol/L 98-107 [facility] Basophils (Bld) [#/Vol] 3.1 10*3/uL 4.4-11.[address] [facility] Basophils (Bld) [#/Vol] 2.0 10*3/uL 2.0-7.[address] [facility] Basophils/100 WBC (Bld) 62.0 % 47-[address] [facility] Basophils/100 WBC (Bld) 9.6 % 0-[address] [facility] Basophils/100 WBC (Bld) 3.5 % 0-[address] [facility] Basophils/100 WBC (Bld) 1.0 % 0-[address] [facility] Bilirubin [Mass/Vol] 2.10 mg/dL 0.20-1.00 [facility] Comment on above: For patients on eltr ombopag therapy, use of Dimension [place] TBIL is not recommended. Chloride [Moles/Vol] 113 mmol/L 98-107 [facility] Eosinophils/100 WBC (Bld) 3.5 % 0-[address] [facility] Glucose [Mass/Vol] 92 mg/dL 74-106 [facility] Hemoglobin (Bld) [Mass/Vol] 9.5 g/dL 12.0-15.[address] [facility] Monocytes/100 WBC (Bld) 9.6 % 0-[address] [facility] Neutrophils (Bld) [#/Vol] 2.0 10*3/uL 2.0-7.[address] [facility] Neutrophils/100 WBC (Bld) 62.0 % 47-[address] [facility] Potassium [Moles/Vol] 3.6 mmol/L 3.5-5.1 [facility] Protein [Mass/Vol] 7.0 g/dL 6.4-8.2 [facility] Sodium [Moles/Vol] 142 mmol/L 136-145 [facility] WBC (Bld) [#/Vol] 3.1 10*3/uL 4.4-11.0 [facility] Bilirubin Test strip Ql (U)O rdered By: Yimi Hutchinson on 11-07-2023 Bilirubin Ql (U) Negative Negative [facility] Blood platelet adequacy dete ction by light microscopyOrdered By: Yimi Hutchinson on 11-07-2023 Platelets LM Ql (Bld) MOD DEC ADEQ [facility] Body fluid appearanceOrdered By: Yimi Hutchinson on 11-07-2023 Appearance (Body fld) SL CLDY [facility] Body fluid color determinati onOrdered By: Yimi Hutchinson on 11-07-2023 Color (Body fld) LT YEL [facility] Body fluid leukocytes count (number/volume)Ordered By: Yimi Hutchinson on 11-07-2023 WBC (Body fld) [#/Vol] 0.133 10*3/uL [facility] Body fluid lymphocytes/100 l eukocytesOrdered By: Yimi Hutchinson on 11-07-2023 Lymphocytes/100 WBC (Body fld) 21 % [facility] Body fluid mononuclear cell percentageOrdered By: Yimi Hutchinson on 11-07-2023 Mononuclear cells/100 WBC (Body fld) 92.5 % [facility] Body fluid other cell count as percentage of leukocytesOrdered By: Yimi Hutchinson on 11-07-2023 Other cells/100 WBC (Body fld) 74 % [facility] Body fluid polymorphonuclear leukocyte countOrdered By: Yimi Hutchinson on 11-07-2023 Polymorphonuclear cells (Body fld) [#/Vol] 0.010 10^3/uL [facility] Body fluid segmented neutrop hils count (number/volume)Ordered By: Yimi Hutchinson on 11-07-2023 Segmented neutrophils (Body fld) [#/Vol] 3 % [facility] Body fluid total cell countO rdered By: Yimi Hutchinson on 11-07-2023 Cells Counted Total (Body fld) [#] 0.200 10^3/ul 0.000-0.[address] [facility] Comment on above: This is the Total Nu mber of Nucleated Cell Types in the Body Fluid. CNPBonita 11-07-2023 CNPN Telephone (FAMColeWS) CAROLINA HIGHTOWER ([id number]) 1975 F Date Time Provider Department 11/07/23 DACIA ACOSTA During your visit today, we recorded the following information about you: Jesi Jason LPN 11/07/2023 4:26 PM Signed Pt calls to report she went to [facility] ER today for abdominal pain and [...] Encounter Status:Closed by DACIA ACOSTA on 11/07/23 Normal [facility] Culture, urineOrdered By: Dominic Hutchinson on 11-07-2023 Bacteria identified Cx Nom (U) Culture exhibits no growth. [facility] Bacteria identified Cx Nom (U) Culture exhibits no growth. [facility] Determination of erythrocyte mean corpuscular volume (MCV)Ordered By: Yimi Hutchinson on 11-07-2023 MCV (RBC) [Entitic vol] 76.3 fL 81-[address] [facility] Direct bilirubinOrdered By: Yimi Hutchinson on 11-07-2023 Bilirubin.direct [Mass/Vol] 1.03 mg/dL 0.00-0.[address] [facility] Erythrocyte distribution wid th ratioOrdered By: Yimi Hutchinson on 11-07-2023 Erythrocyte distribution width (RBC) [Ratio] 20.7 % 11.6-14.[address] [facility] Erythrocyte distribution wid th standard deviationOrdered By: Yimi Hutchinson on 11-07-2023 Erythrocyte distribution width (RBC) [Entitic vol] 57.7 fL 35.1-43.[address] [facility] Gram stain for investigation of transfusion reactionOrdered By: Yimi Hutchinson on 11-07-2023 Microscopic observation Gram stain Nom (Unsp spec) [facility] Hematocrit Auto (Bld) [Volum e fraction]Ordered By: Yimi Hutchinson on 11-07-2023 Hematocrit (Bld) [Volume fraction] 31.6 % 37-[address] [facility] Immature granulocytes/100 WB C Auto (Bld)Ordered By: Yimi Hutchinson on 11-07-2023 Immature granulocytes/100 WBC (Bld) 0.300 % 0.0-0.[address] [facility] Comment on above: IG% - Immature Granu locytes (promyelocytes, myelocytes and metamyelocytes) > 1% indicates that a LEFT SHIFT is Present. Ketones Test strip Ql (U)Ord ered By: Yimi Hutchinson on 11-07-2023 Ketones Ql (U) 5 mg/dl Negative [facility] Laboratory - Chemistry and C hemistry - challengeOrdered By: Yimi Hutchinson on 11-07-2023 HCG ( test) Ql (U) Negative [facility] Comment on above: Very dilute urine sp ecimens, as indicated by a low specificgravity, may not contain inside sales account representative levels of hCG. If is still suspected, a first morning urinespecimen should be collected 48 hours later and tested. ALP [Catalytic activity/Vol] 142 U/L 45-[address] [facility] ALT [Catalytic activity/Vol] 51 U/L 13-[address] [facility] CO2 [Moles/Vol] 25.0 mmol/L 21.0-32.[address] [facility] Globulin (S) [Mass/Vol] 4.5 g/dL 2.2-4.[address] [facility] Lipase [Catalytic activity/Vol] 38 U/L 13-[address] [facility] Comment on above: Please note:LIPASE r evised reference range effective 23. New Lipase methodology. Expected to produce lower values than the previous assay method. NEW Reference Range: 13 - 75 U/L Urea nitrogen/Creatinine [Mass ratio] 14.4 mg/mg 10-[address] [facility] Laboratory - CoagulationOrde red By: Yimi Hutchinson on 11-07-2023 INR Coag (Bld) [Relative time] 1.8 {INR} [facility] PT Coag (PPP) [Time] 21.3 s 11.7-14.9 [facility] Laboratory - Hematology and Cell countsOrdered By: Yimi Hutchinson on 11-07-2023 Anisocytosis Ql (Bld) 2+ [facility] MCH (RBC) [Entitic mass] 22.9 pg 27.0-32.[address] [facility] MCHC (RBC) [Mass/Vol] 30.1 g/dL 32-36 [facility] Nucleated RBC/100 WBC (Bld) [Ratio] 0 % 0-[address] [facility] Platelets (Bld) [#/Vol] 53 10*3/uL 150-[address] [facility] Mucus LM Ql (Urine sed)Order ed By: Yimi Hutchinson on 11-07-2023 Mucus Ql (Urine sed) 1+ /hpf [facility] Nitrite Test strip Ql (U)Ord ered By: Yimi Hutchinson on 11-07-2023 Nitrite Ql (U) Negative Negative [facility] No Panel InformationOrdered By: Yimi Hutchinson on 11-07-2023 Body Fluid Comment 2 SEE COMMENT [facility] Body Fluid Mononuclear WBCs 0.123 10^3/uL [facility] Body Fluid Polynuclear WBCs (%) 7.5 % [facility] Body Fluid RBC 116 /mm3 [facility] 116 /mm3 [facility] 7.5 % [facility] 0.123 10^3/uL [facility] SEE COMMENT [facility] Culture exhibits no growth. [facility] Urine RBC 0-5 SEEN /hpf 0-[address] [facility] 0-5 SEEN /hpf 0-[address] [facility] Negative [facility] Body Fluid Culture Culture exhibits no growth. [facility] Estimated Creatinine Clearance Calc 85.64 ml/min [facility] Estimated GFR (MDRD) Amer 93 mL/min >[address] [facility] Comment on above: GFR Calc Estimated GFR (MDRD) Non-Af Amer 77 mL/min >[address] [facility] Comment on above: Non- GFR Calc 22.9 pg 27.0-32.[address] [facility] 30.1 g/dL 32-[address] [facility] 53 K/mm3 150-[address] [facility] 0 % 0-[address] [facility] 2+ [facility] 21.3 SECONDS 11.7-14.[address] [facility] 1.[address] [facility] 77 mL/min >[address] [facility] 93 mL/min >[address] [facility] 85.64 ml/min [facility] 14.4 RATIO 10-[address] [facility] 4.5 g/dL 2.2-4.[address] [facility] 38 U/L 13-[address] [facility] 142 U/L 45-[address] [facility] 51 U/L 13-[address] [facility] 25.0 mmol/L 21.0-32.[address] [facility] Pathologist interpretation o f Body fluid testsOrdered By: Yimi Hutchinson on 11-07-2023 Pathologist interpretation (Body fld) [Interp] Reviewed [facility] Comment on above: Previous reported re sult: May follow Edited by: SARAH on 11/08/23:141Negative for malignant cells.Wilder Godfrey M.D. 11/08/23 AMENDED REPORT 11/08/23 1417 PATH COMM/BF previously reported as: May follow Pathologist interpretation (Body fld) [Interp] May follow [facility] Protein Test strip Ql (U)Ord ered By: Yimi Hutchinson on 11-07-2023 Protein Ql (U) 30 mg/dl Negative [facility] RBC Auto (Bld) [#/Vol]Ordere d By: Yimi Hutchinson on 11-07-2023 RBC (Bld) [#/Vol] 4.14 10*6/uL 4.2-5.4 [facility] Serum or plasma calcium latrice urement (mass/volume)Ordered By: Yimi Hutchinson on 11-07-2023 Calcium [Mass/Vol] 8.8 mg/dL 8.5-10.1 [facility] Serum or plasma creatinine m easurement (mass/volume)Ordered By: Yimi Hutchinson on 11-07-2023 Creatinine [Mass/Vol] 0.83 mg/dL 0.55-1.02 [facility] Comment on above: The validity of the calculated GFR & GFRAA in patients over 70 years has not been determined. Clinical correlation is essential. Serum or plasma urea nitroge n measurement (mass/volume)Ordered By: Yimi Hutchinson on 11-07-2023 Urea nitrogen [Mass/Vol] 12 mg/dL 7-[address] [facility] Specimen source identificati on of body fluidOrdered By: Yimi Hutchinson on 11-07-2023 Specimen source Nom (Body fld) OTHER [facility] Comment on above: PARACENTESIS. Squamous epithelial cells de tection in urine sediment by light microscopyOrdered By: Yimi Hutchinson on 11-07-2023 Epithelial cells.squamous LM Ql (Urine sed) 5-10 SEEN /hpf 5-[address] [facility] Thin prep Papanicolaou smear with manual screeningOrdered By: Yimi Hutchinson on 11-07-2023 Thin prep Papanicolaou smear with manual screening 2 % [facility] Thin prep Papanicolaou smear with manual screening 2.5 g/dL 3.2-5.[address] [facility] Thin prep Papanicolaou smear with manual screening 92 U/L 15-[address] [facility] Thin prep Papanicolaou smear with manual screening 4 5-[address] [facility] Urine blood detectionOrdered By: Yimi Hutchinson on 11-07-2023 RBC Ql (U) 50 /ul Negative [facility] Urine clarityOrdered By: Lashay Hutchinson on 11-07-2023 Clarity (U) Sl. Cloudy Clear [facility] Urine color determinationOrd ered By: Yimi Hutchinson on 11-07-2023 Color (U) Yellow Yellow [facility] Urine glucose detectionOrder ed By: Yimi Hutchinson on 11-07-2023 Glucose Ql (U) Normal mg/dl Normal [facility] Urine leukocyte esterase det ection by dipstickOrdered By: Yimi Hutchinson on 11-07-2023 Leukocyte esterase Test strip Ql (U) 500 /ul Negative [facility] Urine pHOrdered By: Yimi mcduffie on 11-07-2023 pH (U) 6.0 [pH] 5.0 - 8.[address] [facility] Urine sediment bacteria coun t by microscopy (number/high power field)Ordered By: Yimi Hutchinson on 11-07-2023 Bacteria LM.HPF (Urine sed) [#/Area] 1 /[HPF] None Seen [facility] Urine specific gravity measu rementOrdered By: Yimi Hutchinson on 11-07-2023 Specific gravity (U) [Rel density] 1.020 1.002-1.[address] [facility] Urine urobilinogen measureme ntOrdered By: Yimi Hutchinson on 11-07-2023 Urobilinogen Ql (U) 4 mg/dl Normal [facility] Absolute lymphocyte countOrd ered By: Jake Harding on 11-05-2023 Lymphocytes Auto (Unsp spec) [#/Vol] 1.48 10*3/uL 0.83-4.[address] [facility] Automated lymphocyte count a s percentage of total leukocytesOrdered By: Jake Harding on 11-05-2023 Lymphocytes/100 WBC Auto (Unsp spec) 29.7 % 19-[address] [facility] Basophil percentageOrdered B y: Jake Harding on 11-05-2023 Basophil percentage 5-10 SEEN /hpf 0-5 [facility] Basophil percentage 9.4 g/dL 12.0-15.0 [facility] Basophil percentage 113 mg/dL 74-106 [facility] Basophil percentage 6.8 g/dL 6.4-8.2 [facility] Basophil percentage 1.80 mg/dL 0.20-1.00 [facility] Basophil percentage 141 mmol/L 136-145 [facility] Basophil percentage 3.8 mmol/L 3.5-5.1 [facility] Basophil percentage 114 mmol/L 98-107 [facility] Basophils (Bld) [#/Vol] 5.0 10*3/uL 4.4-11.[address] [facility] Basophils (Bld) [#/Vol] 2.9 10*3/uL 2.0-7.[address] [facility] Basophils/100 WBC (Bld) 0.6 % 0-[address] [facility] Basophils/100 WBC (Bld) 57.9 % 47-[address] [facility] Basophils/100 WBC (Bld) 8.4 % 0-[address] [facility] Basophils/100 WBC (Bld) 3.2 % 0-[address] [facility] Bilirubin [Mass/Vol] 1.80 mg/dL 0.20-1.00 [facility] Comment on above: For patients on eltr ombopag therapy, use of Dimension [place] TBIL is not recommended. Chloride [Moles/Vol] 114 mmol/L 98-107 [facility] Eosinophils/100 WBC (Bld) 3.2 % 0-[address] [facility] Glucose [Mass/Vol] 113 mg/dL 74-106 [facility] Comment on above: Fasting Glucose resu lt from 100 to 125 mg/dL suggests IMPAIRED HOMEOSTASIS per A.D.A. criteria. Hemoglobin (Bld) [Mass/Vol] 9.4 g/dL 12.0-15.[address] [facility] Monocytes/100 WBC (Bld) 8.4 % 0-[address] [facility] Neutrophils (Bld) [#/Vol] 2.9 10*3/uL 2.0-7.[address] [facility] Neutrophils/100 WBC (Bld) 57.9 % 47-[address] [facility] Potassium [Moles/Vol] 3.8 mmol/L 3.5-5.1 [facility] Protein [Mass/Vol] 6.8 g/dL 6.4-8.2 [facility] Sodium [Moles/Vol] 141 mmol/L 136-145 [facility] WBC (Bld) [#/Vol] 5.0 10*3/uL 4.4-11.0 [facility] Bilirubin Test strip Ql (U)O rdered By: Jake Harding on 11-05-2023 Bilirubin Ql (U) 1 mg/dL Negative [facility] Comment on above: COLOR OF URINE MAY A FFECT DIPSTICK RESULTS. Blood manual differential co mment interpretation (narrative result)Ordered By: Jake Harding on 11-05-2023 Manual differential comment Eliezer (Bld) [Interp] SCANNED [facility] Blood platelet adequacy dete ction by light microscopyOrdered By: Jake Harding on 11-05-2023 Platelets LM Ql (Bld) MKD DEC ADEQ [facility] Calcium oxalate crystals det ection in urine sediment by light microscopyOrdered By: Jake Harding on 11-05-2023 Calcium oxalate crystals LM Ql (Urine sed) 2+ /hpf [facility] Culture, urineOrdered By: Jasbir Luu on 11-05-2023 Bacteria identified Cx Nom (U) Culture exhibits no growth. [facility] Bacteria identified Cx Nom (U) Culture exhibits no growth. [facility] Determination of erythrocyte mean corpuscular volume (MCV)Ordered By: Jake Harding on 11-05-2023 MCV (RBC) [Entitic vol] 77.1 fL 81-[address] [facility] Erythrocyte distribution wid th ratioOrdered By: Jake Harding on 11-05-2023 Erythrocyte distribution width (RBC) [Ratio] 20.6 % 11.6-14.[address] [facility] Erythrocyte distribution wid th standard deviationOrdered By: Jake Harding on 11-05-2023 Erythrocyte distribution width (RBC) [Entitic vol] 58.3 fL 35.1-43.[address] [facility] Hematocrit Auto (Bld) [Volum e fraction]Ordered By: Jake Harding on 11-05-2023 Hematocrit (Bld) [Volume fraction] 31.0 % 37-[address] [facility] Immature granulocytes/100 WB C Auto (Bld)Ordered By: Jake Harding on 11-05-2023 Immature granulocytes/100 WBC (Bld) 0.200 % 0.0-0.[address] [facility] Comment on above: IG% - Immature Granu locytes (promyelocytes, myelocytes and metamyelocytes) > 1% indicates that a LEFT SHIFT is Present. Ketones Test strip Ql (U)Ord ered By: Jake Harding on 11-05-2023 Ketones Ql (U) 5 mg/dl Negative [facility] Laboratory - Chemistry and C hemistry - challengeOrdered By: Jake Harding on 11-05-2023 Albumin/Globulin [Mass ratio] 0.6 {ratio} 0.9-2.[address] [facility] ALP [Catalytic activity/Vol] 139 U/L 45-[address] [facility] ALT [Catalytic activity/Vol] 52 U/L 13-[address] [facility] CO2 [Moles/Vol] 25.0 mmol/L 21.0-32.[address] [facility] Globulin (S) [Mass/Vol] 4.3 g/dL 2.2-4.[address] [facility] Lipase [Catalytic activity/Vol] 45 U/L 13-[address] [facility] Comment on above: Please note:LIPASE r evised reference range effective 23. New Lipase methodology. Expected to produce lower values than the previous assay method. NEW Reference Range: 13 - 75 U/L Urea nitrogen/Creatinine [Mass ratio] 13.7 mg/mg 10-[address] [facility] Laboratory - CoagulationOrde red By: Jake Harding on 11-05-2023 INR Coag (Bld) [Relative time] 1.6 {INR} [facility] PT Coag (PPP) [Time] 19.5 s 11.7-14.9 [facility] - Hematology and Cell countsOrdered By: Jake Harding on 11-05-2023 Anisocytosis Ql (Bld) 2+ [facility] MCH (RBC) [Entitic mass] 23.4 pg 27.0-32.[address] [facility] MCHC (RBC) [Mass/Vol] 30.3 g/dL 32-36 [facility] Nucleated RBC/100 WBC (Bld) [Ratio] 0 % 0-[address] [facility] Platelet mean volume (Bld) [Entitic vol] 9.9 fL 6.2-12.[address] [facility] Platelets (Bld) [#/Vol] 69 10*3/uL 150-[address] [facility] Laboratory - Microbiology an d Antimicrobial susceptibilityOrdered By: Jake Harding on 11-05-2023 SARS-CoV-2 (COVID-19) RNA PHYLLIS+probe Ql (Unsp spec) [facility] SARS-CoV-2 (COVID-19) RNA PHYLLIS+probe Ql (Unsp spec) [facility] Mucus LM Ql (Urine sed)Order ed By: Jake Harding on 11-05-2023 Mucus Ql (Urine sed) 1+ /hpf [facility] Nitrite Test strip Ql (U)Ord ered By: Jake Harding on 11-05-2023 Nitrite Ql (U) Negative Negative [facility] No Panel InformationOrdered By: Jake Harding on 11-05-2023 Urine RBC 0-5 SEEN /hpf 0-[address] [facility] 0-5 SEEN /hpf 0-[address] [facility] Estimated Creatinine Clearance Calc 81.94 ml/min [facility] Estimated GFR (MDRD) Amer 88 mL/min >[address] [facility] Comment on above: GFR Calc Estimated GFR (MDRD) Non-Af Amer 73 mL/min >[address] [facility] Comment on above: Non- GFR Calc 23.4 pg 27.0-32.[address] [facility] 30.3 g/dL 32-[address] [facility] 69 K/mm3 150-[address] [facility] 9.9 fl 6.2-12.[address] [facility] 0 % 0-[address] [facility] 2+ [facility] 19.5 SECONDS 11.7-14.[address] [facility] 1.[address] [facility] 73 mL/min >[address] [facility] 88 mL/min >[address] [facility] 81.94 ml/min [facility] 13.7 RATIO 10-[address] [facility] 4.3 g/dL 2.2-4.[address] [facility] 0.6 RATIO 0.9-2.[address] [facility] [facility] 45 U/L 13-[address] [facility] 139 U/L 45-[address] [facility] 52 U/L 13-[address] [facility] 25.0 mmol/L 21.0-32.[address] [facility] Protein Test strip Ql (U)Ord ered By: Jake Harding on 11-05-2023 Protein Ql (U) 30 mg/dl Negative [facility] RBC Auto (Bld) [#/Vol]Ordere d By: Jake Harding on 11-05-2023 RBC (Bld) [#/Vol] 4.02 10*6/uL 4.2-5.4 [facility] Serum or plasma calcium latrice urement (mass/volume)Ordered By: Jake Harding on 11-05-2023 Calcium [Mass/Vol] 9.0 mg/dL 8.5-10.1 [facility] Serum or plasma choriogonado tropin detectionOrdered By: Jake Harding on 11-05-2023 HCG ( test) Ql Negative [facility] Serum or plasma creatinine m easurement (mass/volume)Ordered By: Jake Harding on 11-05-2023 Creatinine [Mass/Vol] 0.88 mg/dL 0.55-1.02 [facility] Comment on above: The validity of the calculated GFR & GFRAA in patients over 70 years has not been determined. Clinical correlation is essential. Serum or plasma urea nitroge n measurement (mass/volume)Ordered By: Jake Harding on 11-05-2023 Urea nitrogen [Mass/Vol] 12 mg/dL 7-[address] [facility] Squamous epithelial cells de tection in urine sediment by light microscopyOrdered By: Jake Harding on 11-05-2023 Epithelial cells.squamous LM Ql (Urine sed) 10-25 SEEN /hpf 5-[address] [facility] Thin prep Papanicolaou smear with manual screeningOrdered By: Jake Harding on 11-05-2023 Thin prep Papanicolaou smear with manual screening 2+ [facility] Thin prep Papanicolaou smear with manual screening 2.5 g/dL 3.2-5.[address] [facility] Thin prep Papanicolaou smear with manual screening 98 U/L 15-[address] [facility] Thin prep Papanicolaou smear with manual screening 2 5-[address] [facility] Urine blood detectionOrdered By: Jake Harding on 11-05-2023 RBC Ql (U) 50 /ul Negative [facility] Urine clarityOrdered By: Osmany Harding on 11-05-2023 Clarity (U) Sl. Cloudy Clear [facility] Urine color determinationOrd ered By: Jake Harding on 11-05-2023 Color (U) Yellow Yellow [facility] Urine glucose detectionOrder ed By: Jake Harding on 11-05-2023 Glucose Ql (U) Normal mg/dl Normal [facility] Urine leukocyte esterase det ection by dipstickOrdered By: Jake Harding on 11-05-2023 Leukocyte esterase Test strip Ql (U) 100 /ul Negative [facility] Urine pHOrdered By: Jake adhikari on 11-05-2023 pH (U) 6.0 [pH] 5.0 - 8.[address] [facility] Urine sediment bacteria coun t by microscopy (number/high power field)Ordered By: Jake Harding on 11-05-2023 Bacteria LM.HPF (Urine sed) [#/Area] RARE /hpf None Seen [facility] Urine specific gravity measu rementOrdered By: Jake Harding on 11-05-2023 Specific gravity (U) [Rel density] 1.025 1.002-1.[address] [facility] Urine urobilinogen measureme ntOrdered By: Jake Harding on 11-05-2023 Urobilinogen Ql (U) 8 mg/dl Normal [facility] CNPNon 11-03-2023 [facility] CAROLINA HIGHTOWER ([id number]) 1975 F Date Time Provider Department 11/03/23 [facility] During your visit today, we recorded the [...] a My Chart message. GERTRUDE Matt Krystle, NASH 11/03/2023 3:57 PM Signed Patient returns call [...] Fully Assessed Reason for Visit: Patient Question [1704] Order(s):ondansetron orally disintegrating (ZOFRAN ODT) 4 mg [...] Encounter Status:Closed by ZAKIA HUGHES on 11/03/23 [facility] CNOVtyler 11-01-2023 CNOV Office Visit (UCWSTR ) CAROLINA HIGHTOWER ([id number]) 1975 F Date Time Provider Department 11/01/23 3:30 PM [facility] During your visit today, we recorded the following information about you: Temperature Pulse Respiration Blood pressure 97.5 degrees 82/minute 20/minute 119/86 Weight 92.1 kg Williams Salvador, PA-C 11/01/2023 4:05 PM Signed [facility] [address], [place] [address] Williams Salvador PA-C 11/01/2023 4:28 PM Signed This note was created using Dryad. Subjective Carolina Hightower is a 48 year [...] PAST SURGICAL HISTORY OF 2018 liver bx [facility] FAMILY HISTORY Problem Relation Age of [...] putting a (more content not included)... Normal [facility] Absolute lymphocyte countOrd ered By: Oscar Pantoja on 2023 Lymphocytes Auto (Unsp spec) [#/Vol] 2.88 10*3/uL 0.83-4.[address] [facility] Basophil percentageOrdered B y: Oscar Pantoja on 2023 Basophil percentage 2.3 mg/dL 2.5-4.9 [facility] Basophil percentage 106 mg/dL 74-106 [facility] Basophil percentage 6.8 g/dL 6.4-8.2 [facility] Basophil percentage 1.90 mg/dL 0.20-1.00 [facility] Basophil percentage 138 mmol/L 136-145 [facility] Basophil percentage 4.1 mmol/L 3.5-5.1 [facility] Basophil percentage 111 mmol/L 98-107 [facility] Basophils (Bld) [#/Vol] 10.3 10*3/uL 4.4-11.[address] [facility] Basophils (Bld) [#/Vol] 5.8 10*3/uL 2.0-7.[address] [facility] Basophils/100 WBC (Bld) 1.0 % 0-[address] [facility] Basophils/100 WBC (Bld) 56.5 % 47-[address] [facility] Basophils/100 WBC (Bld) 3.2 % 0-[address] [facility] Bilirubin [Mass/Vol] 1.90 mg/dL 0.20-1.00 [facility] Comment on above: For patients on eltr ombopag therapy, use of Dimension [place] TBIL is not recommended. Chloride [Moles/Vol] 111 mmol/L 98-107 [facility] Eosinophils/100 WBC (Bld) 3.2 % 0-[address] [facility] Glucose [Mass/Vol] 106 mg/dL 74-106 [facility] Comment on above: Fasting Glucose resu lt from 100 to 125 mg/dL suggests IMPAIRED HOMEOSTASIS per A.D.A. criteria. Neutrophils (Bld) [#/Vol] 5.8 10*3/uL 2.0-7.[address] [facility] Neutrophils/100 WBC (Bld) 56.5 % 47-[address] [facility] Potassium [Moles/Vol] 4.1 mmol/L 3.5-5.1 [facility] Protein [Mass/Vol] 6.8 g/dL 6.4-8.2 [facility] Sodium [Moles/Vol] 138 mmol/L 136-145 [facility] WBC (Bld) [#/Vol] 10.3 10*3/uL 4.4-11.0 [facility] Blood erythrocytes count (nu mber/volume)Ordered By: Oscar Pantoja on 2023 RBC (Bld) [#/Vol] 4.21 10*6/uL 4.2-5.4 [facility] Blood hemoglobin measurement (mass/volume)Ordered By: Oscar Pantoja on 2023 Hemoglobin (Bld) [Mass/Vol] 9.6 g/dL 12.0-15.[address] [facility] Blood lymphocytes/100 leukoc ytesOrdered By: Oscar Pantoja on 2023 Lymphocytes/100 WBC (Bld) 27.9 % 19-[address] [facility] Blood monocytes/100 leukocyt esOrdered By: Oscar Pantoja on 2023 Monocytes/100 WBC (Bld) 11.0 % 0-[address] [facility] Determination of erythrocyte mean corpuscular volume (MCV)Ordered By: Oscar Pantoja on 2023 MCV (RBC) [Entitic vol] 77.2 fL 81-[address] [facility] Hematocrit Auto (Bld) [Volum e fraction]Ordered By: Oscar Pantoja on 2023 Hematocrit (Bld) [Volume fraction] 32.5 % 37-[address] [facility] Laboratory - Chemistry and C hemistry - challengeOrdered By: Oscar Pantoja on 2023 ALP [Catalytic activity/Vol] 139 U/L 45-[address] [facility] ALT [Catalytic activity/Vol] 64 U/L 13-[address] [facility] CO2 [Moles/Vol] 22.0 mmol/L 21.0-32.[address] [facility] Globulin (S) [Mass/Vol] 4.5 g/dL 2.2-4.[address] [facility] Magnesium [Mass/Vol] 1.7 mg/dL 1.6-2.6 [facility] Urea nitrogen/Creatinine [Mass ratio] 5.1 mg/mg 10-[address] [facility] Laboratory - Hematology and Cell countsOrdered By: Oscar Pantoja on 2023 Anisocytosis Ql (Bld) 1+ [facility] Erythrocyte distribution width (RBC) [Entitic vol] 63.6 fL 35.1-43.[address] [facility] Erythrocyte distribution width (RBC) [Ratio] 22.8 % 11.6-14.[address] [facility] Immature granulocytes/100 WBC (Bld) 0.400 % 0.0-0.[address] [facility] Comment on above: IG% - Immature Granu locytes (promyelocytes, myelocytes and metamyelocytes) > 1% indicates that a LEFT SHIFT is Present. MCH (RBC) [Entitic mass] 22.8 pg 27.0-32.[address] [facility] Nucleated RBC/100 WBC (Bld) [Ratio] 0 % 0-[address] [facility] MCHC Auto (RBC) [Mass/Vol]Or dered By: Oscar Pantoja on 2023 MCHC (RBC) [Mass/Vol] 29.5 g/dL 32-36 [facility] No Panel InformationOrdered By: Oscar Pnatoja on 2023 Estimated Creatinine Clearance Calc 72.18 ml/min [facility] Estimated GFR (MDRD) Amer 77 mL/min >[address] [facility] Comment on above: GFR Calc Estimated GFR (MDRD) Non-Af Amer 64 mL/min >[address] [facility] Comment on above: Non- GFR Calc 22.8 pg 27.0-32.[address] [facility] 22.8 % 11.6-14.[address] [facility] 63.6 fl 35.1-43.[address] [facility] 0.400 % 0.0-0.[address] [facility] 0 % 0-[address] [facility] 1+ [facility] 64 mL/min >[address] [facility] 77 mL/min >[address] [facility] 72.18 ml/min [facility] 5.1 RATIO 10-[address] [facility] 4.5 g/dL 2.2-4.[address] [facility] 139 U/L 45-[address] [facility] 64 U/L 13-[address] [facility] 1.7 mg/dL 1.6-2.[address] [facility] 22.0 mmol/L 21.0-32.[address] [facility] Platelets bldOrdered By: Carlin Pantoja on 2023 Platelets (Bld) [#/Vol] 115 10*3/uL 150-[address] [facility] Serum or plasma albumin latrice urement (mass/volume)Ordered By: Oscar Pantoja on 2023 Albumin [Mass/Vol] 2.3 g/dL 3.2-5.0 [facility] Serum or plasma albumin/glob ulin mass ratioOrdered By: Oscar Pantoja on 2023 Albumin/Globulin [Mass ratio] 0.5 {ratio} 0.9-2.[address] [facility] Serum or plasma calcium latrice urement (mass/volume)Ordered By: Oscar Pantoja on 2023 Calcium [Mass/Vol] 8.4 mg/dL 8.5-10.1 [facility] Serum or plasma creatinine m easurement (mass/volume)Ordered By: Oscar Pantoja on 2023 Creatinine [Mass/Vol] 0.98 mg/dL 0.55-1.02 [facility] Comment on above: The validity of the calculated GFR & GFRAA in patients over 70 years has not been determined. Clinical correlation is essential. Serum or plasma urea nitroge n measurement (mass/volume)Ordered By: Oscar Pantoja on 2023 Urea nitrogen [Mass/Vol] 5 mg/dL 7-[address] [facility] Thin prep Papanicolaou smear with manual screeningOrdered By: Oscar Pantoja on 2023 Thin prep Papanicolaou smear with manual screening 128 U/L 15-[address] [facility] Thin prep Papanicolaou smear with manual screening 5 5-[address] [facility] Bacteria identified Cx Nom ( U)Ordered By: Elena Hoff on 10-07-2023 Culture, urine Meth. resistant Stap h. aureus [facility] Culture, urine Meth. resistant Stap h. aureus [facility] Blood manual differential co mment interpretation (narrative result)Ordered By: Elena Hoff on 10-07-2023 Manual differential comment Eliezer (Bld) [Interp] SCANNED [facility] Body fluid appearanceOrdered By: Elena Hoff on 10-07-2023 Appearance (Body fld) CLEAR [facility] Body fluid color determinati onOrdered By: Elena Hoff on 10-07-2023 Color (Body fld) YELLOW [facility] Body fluid lactate dehydroge nase measurement (enzymatic activity/volume) by pyruvateOrdered By: Elena Hoff on 10-07-2023 LDH Pyruvate to lactate reaction (Body fld) [Catalytic activity/Vol] 53 Units/L Not Establ. [facility] Body fluid leukocytes count (number/volume)Ordered By: Elena Hoff on 10-07-2023 WBC (Body fld) [#/Vol] 0.211 10*3/uL [facility] Body fluid lymphocytes/100 l eukocytesOrdered By: Elena Hoff on 10-07-2023 Lymphocytes/100 WBC (Body fld) 39 % [facility] Body fluid macrophage countO rdered By: Elena Hoff on 10-07-2023 Macrophages (Body fld) [#/Vol] 41 % [facility] Body fluid mesothelial cell percentageOrdered By: Elena Hoff on 10-07-2023 Mesothelial cells/100 WBC (Body fld) 5 % [facility] Body fluid protein measureme nt (mass/volume)Ordered By: Elena Hoff on 10-07-2023 Protein (Body fld) [Mass/Vol] 1.0 g/dL Not Establ. [facility] Body fluid segmented neutrop hils count (number/volume)Ordered By: Elena Hoff on 10-07-2023 Segmented neutrophils (Body fld) [#/Vol] 14 % [facility] Culture, urineOrdered By: Nan Hoff on 10-07-2023 Bacteria identified Cx Nom (U) Meth. resistant Staph. aureus [facility] Bacteria identified Cx Nom (U) Meth. resistant Staph. aureus [facility] Mononuclear cells Auto (Body fld) [#/Vol]Ordered By: Elena Hoff on 10-07-2023 Mononuclear cells (Body fld) [#/Vol] 0.197 10*3/uL [facility] No Panel InformationOrdered By: Elena Hoff on 10-07-2023 Body Fluid Comment 2 SEE COMMENT [facility] Body Fluid Glucose 130 mg/dL 40-70 [facility] Body Fluid Mononuclear WBCs (%) 93.3 % [facility] Body Fluid Pathologist Comment May follow [facility] Body Fluid Polynuclear WBCs (#) 0.014 10^3/uL [facility] Body Fluid Polynuclear WBCs (%) 6.7 % [facility] Body Fluid RBC 177 /mm3 [facility] 177 /mm3 [facility] 6.7 % [facility] 93.3 % [facility] 0.014 10^3/uL [facility] SEE COMMENT [facility] 130 mg/dL 40-[address] [facility] Pathologist interpretation o f Body fluid testsOrdered By: Elena Hoff on 10-07-2023 Pathologist interpretation (Body fld) [Interp] Reviewed [facility] Comment on above: Previous reported re sult: May follow Edited by: RGOSHIRA on 10/11/23:0927Negative for malignant cells.Please also refer to cytology report [id number].Wilder Godfrey M.D. 10/11/23 AMENDED REPORT 10/11/23 0927 PATH COMM/BF previously reported as: May follow Specimen source identificati on of body fluidOrdered By: Elena Hoff on 10-07-2023 Specimen source Nom (Body fld) ASCITES FLUID [facility] Thin prep Papanicolaou smear with manual screeningOrdered By: Elena Hoff on 10-07-2023 Thin prep Papanicolaou smear with manual screening 1 % [facility] Thin prep Papanicolaou smear with manual screening 1+ [facility] Total cell countOrdered By: Elena Hoff on 10-07-2023 Cells counted Molgen (Bld/Tiss) [#] 0.276 10^3/ul 0.000-0.[address] [facility] Comment on above: This is the Total Nu mber of Nucleated Cell Types in the Body Fluid. Blood platelet adequacy dete ction by light microscopyOrdered By: Darius Rosales on 10-06-2023 Platelets LM Ql (Bld) MOD DEC ADEQ [facility] Blood platelet mean volumeOr dered By: Darius Rosales on 10-06-2023 Platelet mean volume (Bld) [Entitic vol] TNP [facility] Comment on above: Test not performed Direct bilirubinOrdered By: Darius Rosales on 10-06-2023 Bilirubin.direct [Mass/Vol] 0.94 mg/dL 0.00-0.[address] [facility] Hypochromatic red blood cell detectionOrdered By: Darius Rosales on 10-06-2023 Hypochromia Ql (Bld) 1+ [facility] INR in Blood by Coagulation assayOrdered By: Darius Rosales on 10-06-2023 INR Coag (Bld) [Relative time] 1.8 {INR} [facility] Laboratory - Chemistry and C hemistry - challengeOrdered By: Darius Rosales on 10-06-2023 Lipase [Catalytic activity/Vol] 38 U/L 13- [facility] Comment on above: Please note:LIPASE r evised reference range effective 23. New Lipase methodology. Expected to produce lower values than the previous assay method. NEW Reference Range: 13 - 75 U/L Laboratory - CoagulationOrde red By: Darius Rosales on 10-06-2023 PT Coag (PPP) [Time] 21.1 s 11.7-14.9 [facility] No Panel InformationOrdered By: Darius Rosales on 10-06-2023 21.1 SECONDS 11.7-14.[address] [facility] 38 U/L 13-[address] [facility] Ovalocyte detectionOrdered B y: Darius Rosales on 10-06-2023 Ovalocytes LM Ql (Bld) RARE [facility] RBC morphologyOrdered By: Do lucille Rosales on 10-06-2023 RBC morphology finding Nom (Bld) N CHROM NORMAL NORM C&C [facility] Basophil percentageOrdered B y: Emperatriz Craig on 09-24-2023 Basophil percentage 122 mg/dL 74-106 [facility] Basophil percentage 144 mmol/L 136-145 [facility] Basophil percentage 3.6 mmol/L 3.5-5.1 [facility] Basophil percentage 117 mmol/L 98-107 [facility] Chloride [Moles/Vol] 117 mmol/L 98-107 [facility] Glucose [Mass/Vol] 122 mg/dL 74-106 [facility] Comment on above: Fasting Glucose resu lt from 100 to 125 mg/dL suggests IMPAIRED HOMEOSTASIS per A.D.A. criteria. Potassium [Moles/Vol] 3.6 mmol/L 3.5-5.1 [facility] Sodium [Moles/Vol] 144 mmol/L 136-145 [facility] Laboratory - Chemistry and C hemistry - challengeOrdered By: Emperatriz Craig on 09-24-2023 CO2 [Moles/Vol] 22.0 mmol/L 21.0-32.[address] [facility] Urea nitrogen/Creatinine [Mass ratio] 12.0 mg/mg - [facility] Laboratory - Microbiology an d Antimicrobial susceptibilityOrdered By: Emperatriz Craig on 09-24-2023 SARS-CoV-2 (COVID-19) RNA PHYLLIS+probe Ql (Unsp spec) [facility] SARS-CoV-2 (COVID-19) RNA PHYLLIS+probe Ql (Unsp spec) [facility] No Panel InformationOrdered By: Emperatriz Craig on 09-24-2023 Estimated Creatinine Clearance Calc 53.82 ml/min [facility] Estimated GFR (MDRD) Amer 76 mL/min >[address] [facility] Comment on above: GFR Calc Estimated GFR (MDRD) Non-Af Amer 63 mL/min >[address] [facility] Comment on above: Non- GFR Calc 63 mL/min >[address] [facility] 76 mL/min >[address] [facility] 53.82 ml/min [facility] 12.0 RATIO 10- [facility] 22.0 mmol/L 21.0-32.[address] [facility] Serum or plasma calcium latrice urement (mass/volume)Ordered By: Emperatriz Craig on 09-24-2023 Calcium [Mass/Vol] 8.9 mg/dL 8.5-10.1 [facility] Serum or plasma creatinine m easurement (mass/volume)Ordered By: Emperatriz Craig on 09-24-2023 Creatinine [Mass/Vol] 1.00 mg/dL 0.55-1.02 [facility] Comment on above: The validity of the calculated GFR & GFRAA in patients over 70 years has not been determined. Clinical correlation is essential. Serum or plasma urea nitroge n measurement (mass/volume)Ordered By: Emperatriz Craig on 09-24-2023 Urea nitrogen [Mass/Vol] 12 mg/dL 7-[address] [facility] Thin prep Papanicolaou smear with manual screeningOrdered By: Emperatriz Craig on 09-24-2023 Thin prep Papanicolaou smear with manual screening 5 5-[address] [facility] 36on 09-20-2023 36 Unable to contact patient X2 Normal [facility] 36on 09-16-2023 36 S: Patient admitted to: [facility] 09/09/23 B: Discharged on : 09/15/23 A: Hospital follow up call initiated to discuss any medication changes, follow up appointments and discharge instructions: Small bowel obstruction R: No contact x 1 at : [phone] [facility] BASIC METABOLIC PANELon 12-2 Anion gap [Moles/Vol] 5 mmol/L Normal 3-13 [facility] Comment on above: Performed By: #### L AB15 ####Commercial Account Manager: HALLEY HERNANDEZ ([phone])[facility])[address] [place] [address] Calcium [Mass/Vol] 8.3 mg/dL Low 8.4-10.4 [facility] Comment on above: Performed By: #### L AB15 ####Commercial Account Manager: HALLEY HERNANDEZ ([phone])[facility] ([facility])[address] [place] [address] Chloride [Moles/Vol] 107 mmol/L Normal 98-107 [facility] Comment on above: Performed By: #### L AB15 ####Commercial Account Manager: HALLEY HERNANDEZ ([phone])[facility])[address] [place] [address] CO2 [Moles/Vol] 23 mmol/L Normal 22-30 [facility] Comment on above: Performed By: #### L AB15 ####Commercial Account Manager: HALLEY HERNANDEZ ([phone])[facility])[address] [place] [address] Creatinine [Mass/Vol] 0.71 mg/dL Normal 0.52-1.04 [facility] Comment on above: Performed By: #### L AB15 ####Commercial Account Manager: HALLEY HERNANDEZ ([phone])[facility])[address] [place] [address] GLOMERULAR FILTRATION RATE ML/MIN/1.73 SQ M.PREDICTED >90.0 Normal >60.0 [facility] Comment on above: Result Comment: Calc ulation based on the Chronic Kidney Disease Epidemiology Collaboration (CKD-EPI) equation refit without adjustment for race Performed By: #### L AB15 ####Commercial Account Manager: HALLEY HERNANDEZ ([phone])[facility])[address] [place] [address] Glucose [Mass/Vol] 128 mg/dL High 70-100 [facility] Comment on above: Performed By: #### L AB15 ####Commercial Account Manager: HALLEY HERNANDEZ ([phone])[facility])[address] [place] [address] Potassium [Moles/Vol] 3.4 mmol/L Low 3.5-5.1 [facility] Comment on above: Performed By: #### L AB15 ####Commercial Account Manager: HALLEY HERNANDEZ ([phone])[facility])[address] [place] [address] Sodium [Moles/Vol] 136 mmol/L Normal 135-145 [facility] Comment on above: Performed By: #### L AB15 ####Commercial Account Manager: HALLEY HERNANDEZ ([phone])[facility] ([facility])[address] [place] [address] Urea nitrogen [Mass/Vol] 4 mg/dL Low 7-17 [facility] Comment on above: Performed By: #### L AB15 ####Commercial Account Manager: HALLEY HERNANDEZ ([phone])[facility] ([facility])[address] [place] [address] Basic metabolic 1998 panelon 09-15-2023 Anion gap [Moles/Vol] 5 mmol/L 3 - 13 mmol/L [facility] Calcium [Mass/Vol] 8.3 mg/dL Low 8.4 - 10. 4 mg/dL [facility] Chloride [Moles/Vol] 107 mmol/L 98 - 10 7 mmol/L [facility] CO2 [Moles/Vol] 23 mmol/L 22 - 30 mmol/L [facility] Creatinine [Mass/Vol] 0.71 mg/dL 0.52 - 1.04 mg/dL [facility] GFR/1.73 sq M.predicted MDRD (S/P/Bld) [Vol rate/Area] - PINF [facility] Comment on above: Calculation based on the Chronic Kidney Disease Epidemiology Collaboration (CKD-EPI) equation refit without adjustment for race Glucose [Mass/Vol] 128 mg/dL High 70 - 100 mg/dL [facility] Interpretation and review of laboratory results Abnormal [facility] Potassium [Moles/Vol] 3.4 mmol/L Low 3.5 - 5.1 mmol/L [facility] Sodium [Moles/Vol] 136 mmol/L 135 - 145 mmol/L [facility] Urea nitrogen [Mass/Vol] 4 mg/dL Low 7 - 17 mg/dL [facility] CARECOORDon 09-15-2023 [facility] Social work follow u p on discharge. SHELL notified by patients bedside RN patient needs assist with transport to home. SHELL spoke to patient to confirm address on file is correct. She reports she typically will use her [employer] for transport and uses their uber/lyft service. SHELL placed call to [facility] [phone]. 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 They will call the unit 15 minutes prior to their arrival . Ref # [id number]. amusement park worker updated patients bedside RN, who will update the patient. Normal [facility] CBC (HEMOGRAM)on 09-15-2023 Erythrocyte distribution width (RBC) [Ratio] 21.7 % High 11.5-14.5 [facility] Comment on above: Result Comment: I-An isocytosis Performed By: #### L [id number] #### Commercial Account Manager: HALLEY HERNANDEZ ([phone]) [facility]) [address] [place] [address] ERYTHROCYTE MEAN CORPUSCULAR HEMOGLOBIN CONCENTRATION (G/DL) BY AUTOMATED 31.5 % Low 32.0-36.0 [facility] Comment on above: Performed By: #### L [id number] #### Commercial Account Manager: HALLEY HERNANDEZ ([phone]) [facility]) [address] [place] [address] Hematocrit (Bld) [Volume fraction] 25.3 % Low 35.0-47.0 [facility] [facility] Comment on above: Performed By: #### L [id number] #### Commercial Account Manager: HALLEY HERNANDEZ ([phone]) [facility]) [address] [place] [address] Hemoglobin (Bld) [Mass/Vol] 8.0 g/dL Low 11.7-16.0 [facility] Comment on above: Performed By: #### L [id number] #### Commercial Account Manager: HALLEY HERNANDEZ ([phone]) [facility]) [address] [place] [address] MCH (RBC) [Entitic mass] 22.7 pg Low 26.0-34.0 [facility] Comment on above: Performed By: #### L [id number] #### Commercial Account Manager: HALLEY HERNANDEZ ([phone]) [facility]) [address] [place] [address] MCV (RBC) [Entitic vol] 72.0 fL Low 80.0-98.0 [facility] Comment on above: Performed By: #### L [id number] #### Commercial Account Manager: HALLEY HERNANDEZ ([phone]) [facility]) [address] [place] [address] Platelet mean volume (Bld) [Entitic vol] 9.6 fL Normal 7.4-12.4 [facility] Comment on above: Performed By: #### L [id number] #### Commercial Account Manager: HALLEY HERNANDEZ ([phone]) [facility] ([facility]) [address] [place] [address] Platelets (Bld) [#/Vol] 55 10*3/uL Low 140-440 [facility] Comment on above: Result Comment: I-Th rombocytopenia Performed By: #### L [id number] #### Commercial Account Manager: HALLEY HERNANDEZ ([phone]) [facility] ([facility]) [address] [place] [address] RBC (Bld) [#/Vol] 3.51 10*6/uL Low 3.8-5.20 [facility] Comment on above: Performed By: #### L [id number] #### Commercial Account Manager: HALLEY HERNANDEZ ([phone]) [facility] ([facility]) [address] [place] [address] WBC (Bld) [#/Vol] 4.5 10*3/uL Normal 3.6-10.7 [facility] Comment on above: Performed By: #### L [id number] #### Commercial Account Manager: HALLEY HERNANDEZ ([phone]) [facility] ([facility]) [address] [place] [address] CBC panel Auto (Bld)on 09-15 Erythrocyte distribution width (RBC) [Ratio] 21.7 % High 11.5 - 14.5 % [facility] Comment on above: I-Anisocytosis Hematocrit (Bld) [Volume fraction] 25.3 % Low 35.0 - 47.0 % [facility] Hemoglobin (Bld) [Mass/Vol] 8.0 g/dL Low 11.7 - 16.0 g/dL [facility] Interpretation and review of laboratory results Abnormal [facility] [employer] MCH (RBC) [Entitic mass] 22.7 pg Low 26.0 - 34.0 pg [facility] [employer] MCHC (RBC) [Mass/Vol] 31.5 % Low 32.0 - 36.0 % [facility] [employer] MCV (RBC) [Entitic vol] 72.0 fL Low 80.0 - 98.0 fL [facility] [employer] Platelet mean volume (Bld) [Entitic vol] 9.6 fL 7.4 - 12.4 fL [facility] [employer] Platelets (Bld) [#/Vol] 55 10*3/uL Low 140 - 440 10*3/uL [facility] [employer] Comment on above: I-Thrombocytopenia RBC (Bld) [#/Vol] 3.51 10*6/uL Low 3.8 - 5.20 10*6/uL [facility] [employer] WBC (Bld) [#/Vol] 4.5 10*3/uL 3.6 - 10.7 10*3/uL [facility] [employer] Progress Noteon 09-15-2023 Progress Note Nutrition Assessment [...] (S/p paracentesis 09/14 with 1.7L removed) Ascites [employer] Strength: Not Performed Nutrition Assessment: 47yo F [...] my meals, but not like I normally would. At home she reports she normally eats [...] On: Kcal/kg Weight Used for Energy Requirements: [place] Weight for Energy Calculation (kg): 50 kg Total Energy Requirements (kcals/day): 27-32 kcal/kg = 7514-2718 kcal/day Weight Used for Protein Requirements: [place] Weight in Kg Used for Protein Requirements: [...] Ordered Anthropometric Measures: Height: 157.5 cm (5' 2.01) Current Body Weight: 95.2 kg (209 lb 14.4 oz) (09/15 bed) Admission Body Weight: (No weight on admit) Usual Body Weight: 90.7 kg (200 lb) (stated) % Weight Change (Calculated): 5 [place] Body Weight (lbs) (Calculated): 110 lbs [place] Body Weight (Kg) (Calculated): 50 kg % [place] Body Weight (Calculated): 190.8 % BMI (kg/m2) (Calculated): 38.4 Weight Adjustment For: No Adjustment Nutrition Interventions: Nutrition Education/Counseling: No recommendation at this time Coordination of Nutrition Care: Continue to monitor while inpatient Goals: Previous Goal Met: Progressing toward Goal(s) Goals: PO intake 75% or greater, prior to discharge Nutrition Monitoring and Evaluation: Behavioral-Environmenta l Outcomes: None Identified Food/Nutrient Intake Outcomes: Food and Nutrient Intake, Supplement Intake Physical Signs/Symptoms Outcomes: Biochemical Data, Nutrition Focused Physical Findings, Skin, Weight, GI Status, Fluid Status or Edema, Hemodynamic (more content not included)... Normal [facility] BASIC METABOLIC PANELon 12-2 Anion gap [Moles/Vol] 5 mmol/L Normal 3-13 [facility] Comment on above: Performed By: #### L [id number] ####Commercial Account Manager: HALLEY HERNANDEZ ([phone])[facility] ([address] Calcium [Mass/Vol] 8.2 mg/dL Low 8.4-10.4 [facility] Comment on above: Performed By: #### L [id number] ####Commercial Account Manager: HALLEY HERNANDEZ ([phone])[facility] ([facility])[address] [place] [address] Chloride [Moles/Vol] 110 mmol/L High 98-107 [facility] Comment on above: Performed By: #### L [id number] ####Commercial Account Manager: HALLEY HERNANDEZ ([phone])[facility] ([facility])[address] [place] [address] CO2 [Moles/Vol] 21 mmol/L Low 22-30 [facility] Comment on above: Performed By: #### L [id number] ####Commercial Account Manager: HALLEY HERNANDEZ ([phone])[facility])[address] [place] [address] Creatinine [Mass/Vol] 0.62 mg/dL Normal 0.52-1.04 [facility] Comment on above: Performed By: #### L [id number] ####Commercial Account Manager: HALLEY HERNANDEZ ([phone])[facility])[address] [place] [address] GLOMERULAR FILTRATION RATE ML/MIN/1.73 SQ M.PREDICTED >90.0 Normal >60.0 [facility] Comment on above: Result Comment: Calc ulation based on the Chronic Kidney Disease Epidemiology Collaboration (CKD-EPI) equation refit without adjustment for race Performed By: #### L [id number] ####Commercial Account Manager: HALLEY HERNANDEZ ([phone])[facility] ([facility])[address] [place] [address] [place] Glucose [Mass/Vol] 145 mg/dL High 70-100 [facility] Comment on above: Performed By: #### L [id number] ####Commercial Account Manager: HALLEY HERNANDEZ ([phone])[facility])[address] [place] [address] Potassium [Moles/Vol] 3.7 mmol/L Normal 3.5-5.1 [facility] Comment on above: Performed By: #### L [id number] ####Commercial Account Manager: HALLEY [phone])[facility] ([facility])[address] [place] [address] Sodium [Moles/Vol] 136 mmol/L Normal 135-145 [facility] Comment on above: Performed By: #### L [id number] ####Commercial Account Manager: HALLEY HERNANDEZ ([phone])[facility] ([facility])[address] [place] [address] Urea nitrogen [Mass/Vol] 4 mg/dL Low 7-17 [facility] Comment on above: Performed By: #### L [id number] ####Commercial Account Manager: HALLEY HERNANDEZ ([phone])[facility] ([facility])[address] [place] [address] Basic metabolic 1998 panelon 09-14-2023 Anion gap [Moles/Vol] 5 mmol/L 3 - 13 mmol/L [facility] Calcium [Mass/Vol] 8.2 mg/dL Low 8.4 - 10. 4 mg/dL [facility] Chloride [Moles/Vol] 110 mmol/L High 98 - 10 7 mmol/L [facility] CO2 [Moles/Vol] 21 mmol/L Low 22 - 30 mmol/L [facility] Creatinine [Mass/Vol] 0.62 mg/dL 0.52 - 1.04 mg/dL [facility] GFR/1.73 sq M.predicted MDRD (S/P/Bld) [Vol rate/Area] - [facility] Comment on above: Calculation based on the Chronic Kidney Disease Epidemiology Collaboration (CKD-EPI) equation refit without adjustment for race Glucose [Mass/Vol] 145 mg/dL High 70 - 100 mg/dL [facility] Interpretation and review of laboratory results Abnormal [facility] Potassium [Moles/Vol] 3.7 mmol/L 3.5 - 5.1 mmol/L [facility] Sodium [Moles/Vol] 136 mmol/L 135 - 145 mmol/L [facility] Urea nitrogen [Mass/Vol] 4 mg/dL Low 7 - 17 mg/dL [facility] CARECOORDon 09-14-2023 [facility] Chart reviewed. Tamie ent had paracentesis today with 1700 ml removed. Surgery is following patient for likely ileus -->no plans for intervention and recommend ADAT. Current discharge plan is home no needs once medically stable. Normal [facility] CBC (HEMOGRAM)on 09-14-2023 Erythrocyte distribution width (RBC) [Ratio] 21.3 % High 11.5-14.5 [facility] Comment on above: Result Comment: I-An isocytosis Performed By: #### L [id number] #### Commercial Account Manager: JAVID LUTHER ([phone]) [facility] ([facility]) [address] ERYTHROCYTE MEAN CORPUSCULAR HEMOGLOBIN CONCENTRATION (G/DL) BY AUTOMATED 31.7 % Low 32.0-36.0 [facility] Comment on above: Performed By: #### L [id number] #### Commercial Account Manager: JAVID LUTHER ([phone]) [facility] ([facility]) [address] [place] [address] Hematocrit (Bld) [Volume fraction] 24.9 % Low 35.0-47.0 [facility] Comment on above: Performed By: #### L [id number] #### Commercial Account Manager: JAVID LUTHER ([phone]) [facility] ([facility]) [address] [place] [address] Hemoglobin (Bld) [Mass/Vol] 7.9 g/dL Low 11.7-16.0 [facility] Comment on above: Performed By: #### L [id number] #### Commercial Account Manager: JAVID LUTHER ([phone]) [facility] ([facility]) [address] MCH (RBC) [Entitic mass] 22.9 pg Low 26.0-34.0 [facility] Comment on above: Performed By: #### L [id number] #### Commercial Account Manager: JAVID LUTHER ([phone]) [facility] ([facility]) [address] MCV (RBC) [Entitic vol] 72.1 fL Low 80.0-98.0 [facility] Comment on above: Performed By: #### L [id number] #### Commercial Account Manager: JAVID LUTHER ([phone]) [facility] ([facility]) [address] Platelet mean volume (Bld) [Entitic vol] 9.1 fL Normal 7.4-12.4 [facility] Comment on above: Performed By: #### L [id number] #### Commercial Account Manager: JAVID LUTHER ([phone]) [facility] ([facility]) [address] Platelets (Bld) [#/Vol] 59 10*3/uL Low 140-440 [facility] Comment on above: Result Comment: I-Th rombocytopenia Performed By: #### L [id number] #### Commercial Account Manager: JAVID LUTHER ([phone]) [facility] ([facility]) [address] RBC (Bld) [#/Vol] 3.45 10*6/uL Low 3.8-5.20 [facility] Comment on above: Performed By: #### L [id number] #### Commercial Account Manager: JAVID LUTHER ([phone]) [facility] ([facility]) [address] WBC (Bld) [#/Vol] 4.6 10*3/uL Normal 3.6-10.7 [facility] Comment on above: Performed By: #### L [id number] #### Commercial Account Manager: JAVID LUTHER ([phone]) [facility] ([facility]) [address] CBC panel Auto (Bld)Ordered By: Brooklyn Salter on 09-14-2023 Erythrocyte distribution width (RBC) [Ratio] 21.3 % High 11.5 - 14.5 % [facility] Comment on above: I-Anisocytosis Hematocrit (Bld) [Volume fraction] 24.9 % Low 35.0 - 47.0 % [facility] Hemoglobin (Bld) [Mass/Vol] 7.9 g/dL Low 11.7 - 16.0 g/dL [facility] Interpretation and review of laboratory results Abnormal [facility] MCH (RBC) [Entitic mass] 22.9 pg Low 26.0 - 34.0 pg [facility] MCHC (RBC) [Mass/Vol] 31.7 % Low 32.0 - 36.0 % [facility] MCV (RBC) [Entitic vol] 72.1 fL Low 80.0 - 98.0 fL [facility] Platelet mean volume (Bld) [Entitic vol] 9.1 fL 7.4 - 12.4 fL [facility] Platelets (Bld) [#/Vol] 59 10*3/uL Low 140 - 440 10*3/uL [facility] Comment on above: I-Thrombocytopenia RBC (Bld) [#/Vol] 3.45 10*6/uL Low 3.8 - 5.20 10*6/uL [facility] WBC (Bld) [#/Vol] 4.6 10*3/uL 3.6 - 10.7 10*3/uL [facility] Guidance for paracentesis of [...] Electronically Signed Date/Time: 09/14/2023 11:36 AM EST [facility] [employer] [facility] Patient Name: CAROLINA HIGHTOWER : 1975 Exam Date/Time: 09/14/2023 09:36 Procedure: US GUIDED ABDOMINAL PARACENTESIS Ordering Provider: LIM HARIKRISHNA Reason For Exam: Abdominal distention, pain PROCEDURE: Ultrasound-guided paracentesis PROCEDURAL PERSONNEL Advanced Practice Provider: Windy Pastor PA-C Attending physician, Max Huerta M.D., was available in the department if needed. Indication: Ascites Additional clinical history: None Complications: No immediate complications. [facility] Windy Pastor PA -C - 09/14/2023 Patient Name: CAROLINA HIGHTOWER : 1975 Exam Date/Time: 09/14/2023 09:36 Procedure: US GUIDED ABDOMINAL PARACENTESIS Ordering Provider: LIM HARIKRISHNA Reason For Exam: Abdominal distention, pain PROCEDURE: Ultrasound-guided paracentesis PROCEDURAL PERSONNEL Advanced Practice Provider: Windy Pastor PA-C Attending physician, Max Huerta M.D., was available in the department [...] Electronically Signed Date/Time: 09/14/2023 11:36 AM EST [facility] Radiology Study observation (narrative) [facility] Guidance for paracentesis of PeritoneumOrdered By: Windy Pastor on 09-14-2023 [facility] Work Phone: Nursing Noteon 09-14-2023 Nursing Note Patient to ultrasoun d department for paracentesis. History, medications and allergies reviewed. Samuel Pastor PA-C in to speak with patient. Informed consent obtained. 1700 mL clear yellow colored fluid removed. Patient tolerated procedure well. Bandaid applied to site. Patient discharged to 7W Normal [facility] US GUIDED ABDOMINAL PARACENT [facility] 09-14-2023 US GUIDED ABDOMINAL PARACENTESIS Patient Name: CAROLINA HIGHTOWER : 1975 Exam Date/Time: 09/14/2023 09:36 Procedure: US GUIDED ABDOMINAL PARACENTESIS Ordering Provider: LIM HARIKRISHNA Reason For Exam: Abdominal distention, pain PROCEDURE: Ultrasound-guided paracentesis PROCEDURAL PERSONNEL Advanced Practice Provider: Windy Pastor PA-C Attending physician, Max Huerta M.D., was available in the department [...] Signed Date/Time: 09/14/2023 11:36 AM EST Normal [facility] BASIC METABOLIC PANELon 12-1 Anion gap [Moles/Vol] 4 mmol/L Normal 3-13 [facility] Comment on above: Performed By: #### L [id number] ####Commercial Account Manager: HALLEY HERNANDEZ ([phone])[facility] ([address] Calcium [Mass/Vol] 8.3 mg/dL Low 8.4-10.4 [facility] Comment on above: Performed By: #### L [id number] ####Commercial Account Manager: HALLEY HERNANDEZ ([phone])[facility] ([facility])[address] [place] [address] Chloride [Moles/Vol] 113 mmol/L High 98-107 [facility] Comment on above: Performed By: #### L [id number] ####Commercial Account Manager: HALLEY HERNANDEZ ([phone])[facility])[address] [place] [address] CO2 [Moles/Vol] 21 mmol/L Low 22-30 [facility] Comment on above: Performed By: #### L [id number] ####Commercial Account Manager: HALLEY HERNANDEZ ([phone])[facility])[address] [place] [address] Creatinine [Mass/Vol] 0.68 mg/dL Normal 0.52-1.04 [facility] Comment on above: Performed By: #### L [id number] ####Commercial Account Manager: HALLEY HERNANDEZ ([phone])[facility])[address] [place] [address] GLOMERULAR FILTRATION RATE ML/MIN/1.73 SQ M.PREDICTED >90.0 Normal >60.0 [facility] Comment on above: Result Comment: Calc ulation based on the Chronic Kidney Disease Epidemiology Collaboration (CKD-EPI) equation refit without adjustment for race Performed By: #### L [id number] ####Commercial Account Manager: HALLEY HERNANDEZ ([phone])[facility])[address] [place] [address] Glucose [Mass/Vol] 136 mg/dL High 70-100 [facility] Comment on above: Performed By: #### L [id number] ####Commercial Account Manager: HALLEY HERNANDEZ ([phone])[facility] ([facility])[address] [place] [address] [place] Potassium [Moles/Vol] 3.9 mmol/L Normal 3.5-5.1 [facility] Comment on above: Performed By: #### L [id number] ####Commercial Account Manager: HALLEY HERNANDEZ ([phone])[facility])[address] [place] [address] [place] Sodium [Moles/Vol] 137 mmol/L Normal 135-145 [facility] Comment on above: Performed By: #### L [id number] ####Commercial Account Manager: HALLEY HERNANDEZ ([phone])[facility] ([facility])[address] [place] [address] Urea nitrogen [Mass/Vol] 2 mg/dL Low 7-17 [facility] Comment on above: Performed By: #### L [id number] ####Commercial Account Manager: HALLEY HERNANDEZ ([phone])[facility] ([facility])[address] [place] [address] Basic metabolic 1998 panelon 09-13-2023 Anion gap [Moles/Vol] 4 mmol/L 3 - 13 mmol/L [facility] Calcium [Mass/Vol] 8.3 mg/dL Low 8.4 - 10. 4 mg/dL [facility] Chloride [Moles/Vol] 113 mmol/L High 98 - 10 7 mmol/L [facility] CO2 [Moles/Vol] 21 mmol/L Low 22 - 30 mmol/L [facility] Creatinine [Mass/Vol] 0.68 mg/dL 0.52 - 1.04 mg/dL [facility] GFR/1.73 sq M.predicted MDRD (S/P/Bld) [Vol rate/Area] - [facility] Comment on above: Calculation based on the Chronic Kidney Disease Epidemiology Collaboration (CKD-EPI) equation refit without adjustment for race Glucose [Mass/Vol] 136 mg/dL High 70 - 100 mg/dL [facility] Interpretation and review of laboratory results Abnormal [facility] Potassium [Moles/Vol] 3.9 mmol/L 3.5 - 5.1 mmol/L [facility] Sodium [Moles/Vol] 137 mmol/L 135 - 145 mmol/L [facility] Urea nitrogen [Mass/Vol] 2 mg/dL Low 7 - 17 mg/dL [facility] CBC (HEMOGRAM)on 09-13-2023 Erythrocyte distribution width (RBC) [Ratio] 21.1 % High 11.5-14.5 [facility] Comment on above: Result Comment: I-An isocytosis Performed By: #### L [id number] ####Commercial Account Manager: HALLEY HERNANDEZ ([phone])[facility] ([facility])[address] [place] [address] ERYTHROCYTE MEAN CORPUSCULAR HEMOGLOBIN CONCENTRATION (G/DL) BY AUTOMATED 31.0 % Low 32.0-36.0 [facility] Comment on above: Performed By: #### L [id number] ####Commercial Account Manager: HALLEY HERNANDEZ ([phone])[facility])[address] [place] [address] Hematocrit (Bld) [Volume fraction] 26.1 % Low 35.0-47.0 [facility] Comment on above: Performed By: #### L [id number] ####Commercial Account Manager: HALLEY HERNANDEZ ([phone])[facility])[address] [place] [address] Hemoglobin (Bld) [Mass/Vol] 8.1 g/dL Low 11.7-16.0 [facility] Comment on above: Performed By: #### L [id number] ####Commercial Account Manager: HALLEY HERNANDEZ ([phone])[facility])[address] [place] [address] MCH (RBC) [Entitic mass] 22.4 pg Low 26.0-34.0 [facility] Comment on above: Performed By: #### L [id number] ####Commercial Account Manager: HALLEY HERNANDEZ ([phone])[facility])[address] [place] [address] MCV (RBC) [Entitic vol] 72.4 fL Low 80.0-98.0 [facility] Comment on above: Performed By: #### L [id number] ####Commercial Account Manager: HALLEY HERNANDEZ ([phone])[facility])[address] [place] [address] Platelet mean volume (Bld) [Entitic vol] 8.8 fL Normal 7.4-12.4 [facility] Comment on above: Performed By: #### L [id number] ####Commercial Account Manager: HALLEY HERNANDEZ ([phone])[facility])[address] [place] [address] [place] Platelets (Bld) [#/Vol] 56 10*3/uL Low 140-440 [facility] Comment on above: Result Comment: I-Th rombocytopenia Performed By: #### L [id number] ####Commercial Account Manager: HALLEY HERNANDEZ ([phone])[facility] ([facility])[address] [place] [address] RBC (Bld) [#/Vol] 3.60 10*6/uL Low 3.8-5.20 [facility] Comment on above: Performed By: #### L [id number] ####Commercial Account Manager: HALLEY HERNANDEZ ([phone])[facility] ([facility])[address] [place] [address] WBC (Bld) [#/Vol] 4.4 10*3/uL Normal 3.6-10.7 [facility] Comment on above: Performed By: #### L [id number] ####Commercial Account Manager: HALLEY HERNANDEZ ([phone])[facility])[address] [place] [address] CBC panel Auto (Bld)Ordered By: Robin Riojas on 09-13-2023 Erythrocyte distribution width (RBC) [Ratio] 21.1 % High 11.5 - 14.5 % [facility] Comment on above: I-Anisocytosis Hematocrit (Bld) [Volume fraction] 26.1 % Low 35.0 - 47.0 % [facility] Hemoglobin (Bld) [Mass/Vol] 8.1 g/dL Low 11.7 - 16.0 g/dL [facility] Interpretation and review of laboratory results Abnormal [facility] MCH (RBC) [Entitic mass] 22.4 pg Low 26.0 - 34.0 pg [facility] MCHC (RBC) [Mass/Vol] 31.0 % Low 32.0 - 36.0 % [facility] MCV (RBC) [Entitic vol] 72.4 fL Low 80.0 - 98.0 fL [facility] Platelet mean volume (Bld) [Entitic vol] 8.8 fL 7.4 - 12.4 fL [facility] Platelets (Bld) [#/Vol] 56 10*3/uL Low 140 - 440 10*3/uL [facility] Comment on above: I-Thrombocytopenia RBC (Bld) [#/Vol] 3.60 10*6/uL Low 3.8 - 5.20 10*6/uL [facility] WBC (Bld) [#/Vol] 4.4 10*3/uL 3.6 - 10.7 10*3/uL [facility] AMMONIAon 09-12-2023 Ammonia (P) [Moles/Vol] 42 umol/L High 9-30 [facility] Comment on above: Performed By: #### L [id number] ####Commercial Account Manager: HALLEY HERNANDEZ ([phone])[facility] ([facility])[address] [place] [address] CARECOORDon 09-12-2023 [facility] Care Managment Initi al Assessment Date: 09/12/2023 Patient Name: Carolina Hightower : 1975 Patient Information Source of Information: Patient Cognition/Language: WFL - Within Functional Limits Permission given to speak with patient inside sales account representative/caregive r as indicated: Yes Confirmation of Payer with patient/family: Yes Payer Name: [employer] [place]: No Confirmation of Primary Care Physician: Confirmed [...] of Daily Living Ambulation: Independent Bathing/Dressing: Independent Elimination/Continence/ Toileting: Independent Feeding: Independent Who Assists with Activities of Daily Living: Instrumental Activities of Daily Living Prescription Coverage: Yes Pharmacy Used: Medication Management: Independent Transportation/Shopping : Assistance Provider Transportation Mode: Public transportation Needs [...] pain, nausea and vomiting, hx: polysubstance abuse. OR diet and Addiction Medicine consulted. Discharge plan home with Significant Other. Meg Herrmann RN Normal [facility] CBC (HEMOGRAM)on 09-12-2023 Erythrocyte distribution width (RBC) [Ratio] 21.1 % High 11.5-14.5 [facility] Comment on above: Result Comment: I-An isocytosis Performed By: #### L [id number] #### Commercial Account Manager: JAVID LUTHER ([phone]) [facility] ([facility]) [address] [place] [address] ERYTHROCYTE MEAN CORPUSCULAR HEMOGLOBIN CONCENTRATION (G/DL) BY AUTOMATED 31.5 % Low 32.0-36.0 [facility] Comment on above: Performed By: #### L [id number] #### Commercial Account Manager: JAVID LUTHER ([phone]) [facility] ([facility]) [address] [place] [address] Hematocrit (Bld) [Volume fraction] 25.0 % Low 35.0-47.0 [facility] Comment on above: Performed By: #### L [id number] #### Commercial Account Manager: JAVID LUTHER ([phone]) [facility] ([facility]) [address] [place] [address] Hemoglobin (Bld) [Mass/Vol] 7.9 g/dL Low 11.7-16.0 [facility] Comment on above: Performed By: #### L [id number] #### Commercial Account Manager: JAVID LUTHER ([phone]) [facility] ([facility]) [address] MCH (RBC) [Entitic mass] 22.5 pg Low 26.0-34.0 [facility] Comment on above: Performed By: #### L [id number] #### Commercial Account Manager: JAVID LUTHER ([phone]) [facility] ([facility]) [address] MCV (RBC) [Entitic vol] 71.5 fL Low 80.0-98.0 [facility] Comment on above: Performed By: #### L [id number] #### Commercial Account Manager: JAVID LUTHER ([phone]) [facility] ([facility]) [address] Platelet mean volume (Bld) [Entitic vol] 8.9 fL Normal 7.4-12.4 [facility] Comment on above: Performed By: #### L [id number] #### Commercial Account Manager: JAVID LUTHER ([phone]) [facility] ([facility]) [address] Platelets (Bld) [#/Vol] 58 10*3/uL Low 140-440 [facility] Comment on above: Result Comment: I-Th rombocytopenia Performed By: #### L [id number] #### Commercial Account Manager: JAVID LUTHER ([phone]) [facility] ([facility]) [address] RBC (Bld) [#/Vol] 3.50 10*6/uL Low 3.8-5.20 [facility] Comment on above: Performed By: #### L [id number] #### Commercial Account Manager: JAVID LUTHER ([phone]) [facility] ([facility]) [address] WBC (Bld) [#/Vol] 5.1 10*3/uL Normal 3.6-10.7 [facility] Comment on above: Performed By: #### L [id number] #### Commercial Account Manager: JAVID LUTHER ([phone]) [facility] ([facility] [address] CBC panel Auto (Bld)Ordered By: Luis Alfredo Brand on 09-12-2023 Erythrocyte distribution width (RBC) [Ratio] 21.1 % High 11.5 - 14.5 % [facility] Comment on above: I-Anisocytosis Hematocrit (Bld) [Volume fraction] 25.0 % Low 35.0 - 47.0 % [facility] Hemoglobin (Bld) [Mass/Vol] 7.9 g/dL Low 11.7 - 16.0 g/dL [facility] Interpretation and review of laboratory results Abnormal [facility] MCH (RBC) [Entitic mass] 22.5 pg Low 26.0 - 34.0 pg [facility] MCHC (RBC) [Mass/Vol] 31.5 % Low 32.0 - 36.0 % [facility] MCV (RBC) [Entitic vol] 71.5 fL Low 80.0 - 98.0 fL [facility] Platelet mean volume (Bld) [Entitic vol] 8.9 fL 7.4 - 12.4 fL [facility] Platelets (Bld) [#/Vol] 58 10*3/uL Low 140 - 440 10*3/uL [facility] Comment on above: I-Thrombocytopenia RBC (Bld) [#/Vol] 3.50 10*6/uL Low 3.8 - 5.20 10*6/uL [facility] WBC (Bld) [#/Vol] 5.1 10*3/uL 3.6 - 10.7 10*3/uL [facility] COMPREHENSIVE METABOLIC PANE [place] 09-12-2023 Albumin [Mass/Vol] 2.9 g/dL Low 3.5-5.0 [facility] Comment on above: Performed By: #### L [id number], [id number] ####Commercial Account Manager: HALLEY HERNANDEZ ([phone])[address] ALP [Catalytic activity/Vol] 112 U/L Normal 38-126 [facility] Comment on above: Performed By: #### Mustapha AB17, [id number] ####Commercial Account Manager: HALLEY HERNANDEZ ([phone])[facility])[address] [place] [address] ALT [Catalytic activity/Vol] 54 U/L High 0-34 [facility] Comment on above: Performed By: #### L AB17, [id number] ####Commercial Account Manager: HALLEY HERNANDEZ ([phone])[facility] ([facility])[address] [place] [address] Anion gap [Moles/Vol] 6 mmol/L Normal 3-13 [facility] Comment on above: Performed By: #### L AB17, [id number] ####Commercial Account Manager: HALLEY HERNANDEZ ([phone])[facility] ([facility])[address] [place] [address] [place] AST [Catalytic activity/Vol] 106 U/L High 15-46 [facility] Comment on above: Performed By: #### L AB17, [id number] ####Commercial Account Manager: HALLEY HERNANDEZ ([phone])[facility] ([facility])[address] [place] [address] Bilirubin [Mass/Vol] 1.9 mg/dL High 0.2-1.3 [facility] Comment on above: Performed By: #### L AB17, [id number] ####Commercial Account Manager: HALLEY HERNANDEZ ([phone])[facility] ([facility])[address] [place] [address] Calcium [Mass/Vol] 8.7 mg/dL Normal 8.4-10.4 [facility] Comment on above: Performed By: #### L AB17, [id number] ####Commercial Account Manager: HALLEY HERNANDEZ ([phone])[facility] ([facility])[address] [place] [address] [place] Chloride [Moles/Vol] 111 mmol/L High 98-107 [facility] Comment on above: Performed By: #### L AB17, [id number] ####Commercial Account Manager: HALLEY HERNANDEZ ([phone])[facility] ([facility])[address] [place] [address] [place] CO2 [Moles/Vol] 19 mmol/L Low 22-30 [facility] Comment on above: Performed By: #### L AB17, [id number] ####Commercial Account Manager: HALLEY HERNANDEZ ([phone])[facility] ([facility])[address] [place] [address] [place] Creatinine [Mass/Vol] 0.64 mg/dL Normal 0.52-1.04 [facility] Comment on above: Performed By: #### L AB17, [id number] ####Commercial Account Manager: HALLEY HERNANDEZ ([phone])[facility])[address] [place] [address] GLOMERULAR FILTRATION RATE ML/MIN/1.73 SQ M.PREDICTED >90.0 Normal >60.0 [facility] Comment on above: Result Comment: Calc ulation based on the Chronic Kidney Disease Epidemiology Collaboration (CKD-EPI) equation refit without adjustment for race Performed By: #### L AB17, [id number] ####Commercial Account Manager: HALLEY HERNANDEZ ([phone])[facility] ([facility])[address] [place] [address] Glucose [Mass/Vol] 110 mg/dL High 70-100 [facility] Comment on above: Performed By: #### L AB17, [id number] ####Commercial Account Manager: HALLEY HERNANDEZ ([phone])[facility] ([facility])[address] [place] [address] [place] Potassium [Moles/Vol] 3.9 mmol/L Normal 3.5-5.1 [facility] Comment on above: Performed By: #### L AB17, [id number] ####Commercial Account Manager: HALLEY HERNANDEZ ([phone])[facility] ([facility])[address] [place] [address] [place] Protein [Mass/Vol] 6.1 g/dL Low 6.3-8.2 [facility] Comment on above: Performed By: #### L AB17, [id number] ####Commercial Account Manager: HALLEY HERNANDEZ ([phone])[facility] ([facility])[address] [place] [address] [place] Sodium [Moles/Vol] 136 mmol/L Normal 135-145 [facility] Comment on above: Performed By: #### L AB17, [id number] ####Commercial Account Manager: HALLEY HERNANDEZ ([phone])[facility])[address] [place] [address] [place] Urea nitrogen [Mass/Vol] 3 mg/dL Low 7-17 [facility] Comment on above: Performed By: #### L AB17, [id number] ####Commercial Account Manager: HALLEY HERNANDEZ ([phone])[facility] ([facility])[address] [place] [address] Comprehensive metabolic 1998 panelon 09-12-2023 Albumin [Mass/Vol] 2.9 g/dL Low 3.5 - 5.0 g/dL [facility] ALP [Catalytic activity/Vol] 112 U/L 38 - 126 U/L [facility] ALT [Catalytic activity/Vol] 54 U/L High 0 - 34 U/L [facility] Anion gap [Moles/Vol] 6 mmol/L 3 - 13 mmol/L [facility] AST [Catalytic activity/Vol] 106 U/L High 15 - 46 U/L [facility] Bilirubin [Mass/Vol] 1.9 mg/dL High 0.2 - 1 .3 mg/dL [facility] Calcium [Mass/Vol] 8.7 mg/dL 8.4 - 10. 4 mg/dL [facility] Chloride [Moles/Vol] 111 mmol/L High 98 - 10 7 mmol/L [facility] CO2 [Moles/Vol] 19 mmol/L Low 22 - 30 mmol/L [facility] Creatinine [Mass/Vol] 0.64 mg/dL 0.52 - 1.04 mg/dL [facility] GFR/1.73 sq M.predicted MDRD (S/P/Bld) [Vol rate/Area] - PINF [facility] Comment on above: Calculation based on the Chronic Kidney Disease Epidemiology Collaboration (CKD-EPI) equation refit without adjustment for race Glucose [Mass/Vol] 110 mg/dL High 70 - 100 mg/dL [facility] Interpretation and review of laboratory results Abnormal [facility] Potassium [Moles/Vol] 3.9 mmol/L 3.5 - 5.1 mmol/L [facility] Protein [Mass/Vol] 6.1 g/dL Low 6.3 - 8.2 g/dL [facility] Sodium [Moles/Vol] 136 mmol/L 135 - 145 mmol/L [facility] Urea nitrogen [Mass/Vol] 3 mg/dL Low 7 - 17 mg/dL [facility] Laboratory - Chemistry and C hemistry - challengeon 09-12-2023 Magnesium [Mass/Vol] 1.6 mg/dL 1.6 - 2 .3 mg/dL [facility] Ammonia (P) [Moles/Vol] 42 umol/L High 9 - 30 umol/L [facility] MAGNESIUMon 09-12-2023 Magnesium [Mass/Vol] 1.6 mg/dL Normal 1.6-2.3 [facility] Comment on above: Performed By: #### L AB17, [id number] ####Commercial Account Manager: HALLEY HERNANDEZ ([phone])[facility] ([address] Magnesium [Mass/Vol]on 09-12 Interpretation and review of laboratory results Normal [facility] [employer] No Panel Informationon 09-12 [facility] Interpretation and review of laboratory results Abnormal [facility] Progress Noteon 09-12-2023 Progress Note --- Attestation signed by Karen Yun MD at 09/13/2023 2:49 PM ~~~~~~~~~~~~~~~~~~~~~~~ ~~~~~~~~~~~~~~~~~~~~~~~ ~~~~~~~~~~~~~~~ ATTENDING ADDENDUM Patient Active Problem List Diagnosis [...] results, and face to face with Carolina Katja discussing the diagnosis and importance of compliance with the treatment plan as well as documenting on the day of the visit. Time was spent, Reviewing medical record including recent tests and results Ordering prescription medications/tests and procedures Communicating results to the patient/family/caregive r Counseling/educating the patient/family/caregive r Documenting clinical information the patient's electronic record Coordination of care for the patient Performing a medical appropriate exam and evaluation Karen Yun MD, FACS Division of Trauma Department of Surgery [facility] ~~~~~~~~~~~~~~~~~~~~~~~ ~~~~~~~~~~~~~~~~~~~~~~~ ~~~~~~~~~~~~~~~ This note may have been dictated using Protecode Medical Practice Edition 2.6 and/or DescribeMe Voice Recognition Feature. The document was proofread; however, unrecognized voice recognition firestopper installer errors may be present. Department of General [...] Range Status (more content not included)... Normal [facility] Progress Note [facility] CHRISTIAN STEELE ADMISSION MEDICATION RECONCILIATION Date: 09/12/23 Room:[facility] Patient Name: Carolina Hightower Allergies: Aspirin, [...] on last fill dates from patient's Drug [facility]. Home medications to restart if there [...] PM 09/12/2023 4:18 PM Kaylin Camarillo, PharmD [facility] Progress Note Nutrition Assessment Type and [...] muscle mass loss Fluid Accumulation: Mild Ascites [employer] Strength: Not Performed Nutrition Assessment: 47yo F [...] On: Kcal/kg Weight Used for Energy Requirements: [place] Weight for Energy Calculation (kg): 50 kg Total Energy Requirements (kcals/day): 27-32 kcal/kg = 3635-6719 kcal/day Weight Used for Protein Requirements: [place] Weight in Kg Used for Protein Requirements: [...] Ordered Anthropometric Measures: Height: 157.5 cm (5' 2.01) Current Body Weight: 93.3 kg (205 lb 9.6 oz) (09/12 bed) Admission Body Weight: (No weight on admission) Usual Body Weight: 90.7 kg (200 lb) (200# stated. Very limited per chart: 12/02/22 208#, 09/29/22 209#, 05/26/22 198#) % Weight Change (Calculated): 2.8 [place] Body Weight (lbs) (Calculated): 110 lbs [place] Body Weight (Kg) (Calculated): 50 kg % [place] Body Weight (Calculated): 186.9 % BMI (kg/m2) [...] next RD assessment Nutrition Monitoring and Evaluation: Behavioral-Environmenta l Outcomes: None Identified Food/Nutrient Intake Outcomes: Food and Nutrient Intake Physical Signs/Symptoms Outcomes: Biochemical Data, Nutrition Focused Physical Findings, Skin, Weight, GI Status, Fluid Status or Edema, Hemodynamic Status, Meal Time Behavior Discharge Planning: Too soon to determ (more content not included)... Normal [facility] AMMONIAon 09-11-2023 Ammonia (P) [Moles/Vol] 65 umol/L High 9-30 [facility] Comment on above: Performed By: #### L [id number] ####Commercial Account Manager: HALLEY HERNANDEZ ([phone])[facility] ([facility])[address] [place] [address] BILIRUBIN, DIRECTon 09-11-20 23 Bilirubin.indirect [Mass/Vol] 0.0 mg/dL Normal 0.0-0.3 [facility] Comment on above: Performed By: #### L AB52, [id number] ####Commercial Account Manager: HALLEY HERNANDEZ ([phone])[facility] ([facility])[address] [place] [address] Bilirubin.indirect [Mass/Vol ]on 09-11-2023 Bilirubin.conjugated [Mass/Vol] 0.0 mg/dL 0.0 - 0.3 mg/dL [facility] Interpretation and review of laboratory results Normal [facility] CARECOORDon 09-11-2023 [facility] to complet e Initial assessment over the phone. Patient currently unavailable/off unit. Will try again as time allows. TCC will follow. Normal [facility] CBC W Auto Differential pane l (Bld)on 09-11-2023 Basophils (Bld) [#/Vol] 0.0 10*3/uL 0.0 - 0.2 10*3/uL [facility] Basophils/100 WBC (Bld) 0.5 % 0.0 - 2.0 % [facility] Eosinophils (Bld) [#/Vol] 0.3 10*3/uL 0.0 - 0.5 10*3/uL [facility] Eosinophils/100 WBC (Bld) 4.4 % 1.0 - 6.0 % [facility] Erythrocyte distribution width (RBC) [Ratio] 21.6 % High 11.5 - 14.5 % [facility] Comment on above: I-Anisocytosis Hematocrit (Bld) [Volume fraction] 27.4 % Low 35.0 - 47.0 % [facility] Hemoglobin (Bld) [Mass/Vol] 8.6 g/dL Low 11.7 - 16.0 g/dL [facility] [employer] Interpretation and review of laboratory results Abnormal [facility] [employer] Lymphocytes (Bld) [#/Vol] 1.6 10*3/uL 1.0 - 4.3 10*3/uL [facility] Lymphocytes/100 WBC (Bld) 20.6 % 20.0 - 40.0 % [facility] MCH (RBC) [Entitic mass] 22.5 pg Low 26.0 - 34.0 pg [facility] MCHC (RBC) [Mass/Vol] 31.2 % Low 32.0 - 36.0 % [facility] [employer] MCV (RBC) [Entitic vol] 72.2 fL Low 80.0 - 98.0 fL [facility] [employer] Monocytes (Bld) [#/Vol] 0.9 10*3/uL High 0.0 - 0.8 10*3/uL [facility] [employer] Monocytes/100 WBC (Bld) 10.9 % High 2.0 - 10.0 % [facility] Neutrophils (Bld) [#/Vol] 5.0 10*3/uL 1.8 - 7.0 10*3/uL [facility] Neutrophils/100 WBC (Bld) 63.6 % 40.0 - 80.0 % [facility] Nucleated RBC/100 WBC (Bld) [Ratio] 0.0 % [facility] [employer] Platelet mean volume (Bld) [Entitic vol] 8.5 fL 7.4 - 12.4 fL [facility] [employer] Platelets (Bld) [#/Vol] 61 10*3/uL Low 140 - 440 10*3/uL [facility] Comment on above: I-Thrombocytopenia RBC (Bld) [#/Vol] 3.80 10*6/uL 3.8 - 5.20 10*6/uL [facility] WBC (Bld) [#/Vol] 7.9 10*3/uL 3.6 - 10.7 10*3/uL [facility] CBC WITH AUTO DIFFERENTIALon 09-11-2023 Basophils (Bld) [#/Vol] 0.0 10*3/uL Normal 0.0-0.2 [facility] Comment on above: Performed By: #### L [id number] ####Commercial Account Manager: HALLEY HERNANDEZ ([phone])[facility])[address] [place] [address] Basophils/100 WBC (Bld) 0.5 % Normal 0.0-2.0 [facility] Comment on above: Performed By: #### L [id number] ####Commercial Account Manager: HALLEY HERNANDEZ ([phone])[facility])[address] [place] [address] Eosinophils (Bld) [#/Vol] 0.3 10*3/uL Normal 0.0-0.5 [facility] Comment on above: Performed By: #### L [id number] ####Commercial Account Manager: HALLEY HERNANDEZ ([phone])[address] Eosinophils/100 WBC (Bld) 4.4 % Normal 1.0-6.0 [facility] Comment on above: Performed By: #### L [id number] ####Commercial Account Manager: HALLEY HERNANDEZ ([phone])[address] Erythrocyte distribution width (RBC) [Ratio] 21.6 % High 11.5-14.5 [facility] Comment on above: Result Comment: I-An isocytosis Performed By: #### L [id number] ####Commercial Account Manager: HALLEY HERNANDEZ ([phone])[facility])[address] [place] [address] ERYTHROCYTE MEAN CORPUSCULAR HEMOGLOBIN CONCENTRATION (G/DL) BY AUTOMATED 31.2 % Low 32.0-36.0 [facility] Comment on above: Performed By: #### L [id number] ####Commercial Account Manager: HALLEY HERNANDEZ ([phone])[address] Hematocrit (Bld) [Volume fraction] 27.4 % Low 35.0-47.0 [facility] Comment on above: Performed By: #### L [id number] ####Commercial Account Manager: HALLEY HERNANDEZ ([phone])[facility])[address] [place] [address] Hemoglobin (Bld) [Mass/Vol] 8.6 g/dL Low 11.7-16.0 [facility] Comment on above: Performed By: #### L [id number] ####Commercial Account Manager: HALLEY HERNANDEZ ([phone])[facility])[address] [place] [address] Lymphocytes (Bld) [#/Vol] 1.6 10*3/uL Normal 1.0-4.3 [facility] Comment on above: Performed By: #### L [id number] ####Commercial Account Manager: HALLEY HERNANDEZ ([phone])[address] Lymphocytes/100 WBC (Bld) 20.6 % Normal 20.0-40.0 [facility] Comment on above: Performed By: #### L [id number] ####Commercial Account Manager: HALLEY HERNANDEZ ([phone])[facility])[address] [place] [address] MCH (RBC) [Entitic mass] 22.5 pg Low 26.0-34.0 [facility] Comment on above: Performed By: #### L [id number] ####Commercial Account Manager: HALLEY HERNANDEZ ([phone])[facility])[address] [place] [address] MCV (RBC) [Entitic vol] 72.2 fL Low 80.0-98.0 [facility] Comment on above: Performed By: #### L [id number] ####Commercial Account Manager: HALLEY HERNANDEZ ([phone])[address] Monocytes (Bld) [#/Vol] 0.9 10*3/uL High 0.0-0.8 [facility] Comment on above: Performed By: #### L [id number] ####Commercial Account Manager: HALLEY HERNANDEZ ([phone])[facility] ([facility])[address] [place] [address] Monocytes/100 WBC (Bld) 10.9 % High 2.0-10.0 [facility] Comment on above: Performed By: #### L [id number] ####Commercial Account Manager: HALLEY HERNANDEZ ([phone])[facility] ([facility])[address] [place] [address] Neutrophils (Bld) [#/Vol] 5.0 10*3/uL Normal 1.8-7.0 [facility] Comment on above: Performed By: #### L [id number] ####Commercial Account Manager: HALLEY HERNANDEZ ([phone])[facility] ([facility])[address] [place] [address] Neutrophils/100 WBC (Bld) 63.6 % Normal 40.0-80.0 [facility] Comment on above: Performed By: #### L [id number] ####Commercial Account Manager: HALLEY HERNANDEZ ([phone])[facility] ([facility])[address] [place] [address] NRBC (PER 100 WBCS) BY AUTOMATED COUNT 0.0 /100 WBCs Normal 0.0-2.0 [facility] Comment on above: Performed By: #### L [id number] ####Commercial Account Manager: HALLEY HERNANDEZ ([phone])[facility] ([facility])[address] [place] [address] Platelet mean volume (Bld) [Entitic vol] 8.5 fL Normal 7.4-12.4 [facility] Comment on above: Performed By: #### L [id number] ####Commercial Account Manager: HALLEY HERNANDEZ ([phone])[facility])[address] [place] [address] Platelets (Bld) [#/Vol] 61 10*3/uL Low 140-440 [facility] Comment on above: Result Comment: I-Th rombocytopenia Performed By: #### L [id number] ####Commercial Account Manager: HALLEY HERNANDEZ ([phone])[facility] ([facility])[address] [place] [address] RBC (Bld) [#/Vol] 3.80 10*6/uL Normal 3.8-5.20 [facility] Comment on above: Performed By: #### L [id number] ####Commercial Account Manager: HALLEY HERNANDEZ ([phone])[facility] ([facility])[address] [place] [address] WBC (Bld) [#/Vol] 7.9 10*3/uL Normal 3.6-10.7 [facility] Comment on above: Performed By: #### L [id number] ####Commercial Account Manager: HALLEY HERNANDEZ ([phone])[facility] ([facility])[address] [place] [address] COMPREHENSIVE METABOLIC PANE [place] 09-11-2023 Albumin [Mass/Vol] 3.3 g/dL Low 3.5-5.0 [facility] Comment on above: Performed By: #### L AB52, LAB17 ####Commercial Account Manager: HALLEY HERNANDEZ ([phone])[facility] ([facility])[address] [place] [address] ALP [Catalytic activity/Vol] 107 U/L Normal 38-126 [facility] Comment on above: Performed By: #### L AB52, LAB17 ####Commercial Account Manager: HALLEY HERNANDEZ ([phone])[facility])[address] [place] [address] ALT [Catalytic activity/Vol] 52 U/L High 0-34 [facility] Comment on above: Performed By: #### L AB52, LAB17 ####Commercial Account Manager: HALLEY HERNANDEZ ([phone])[facility])[address] [place] [address] Anion gap [Moles/Vol] 9 mmol/L Normal 3-13 [facility] Comment on above: Performed By: #### L AB52, LAB17 ####Commercial Account Manager: HALLEY HERNANDEZ ([phone])[facility] ([facility] [place] [address] [place] AST [Catalytic activity/Vol] 98 U/L High 15-46 [facility] Comment on above: Performed By: #### Mustapha LITTLE, [id number] ####Commercial Account Manager: HALLEY HERNANDEZ ([phone])[facility] ([facility] [place] [address] [place] Bilirubin [Mass/Vol] 2.3 mg/dL High 0.2-1.3 [facility] Comment on above: Performed By: #### Mustapha LITTLE, [id number] ####Commercial Account Manager: HALLEY HERNANDEZ ([phone])[facility] ([facility])[address] [place] [address] Calcium [Mass/Vol] 8.5 mg/dL Normal 8.4-10.4 [facility] Comment on above: Performed By: #### Mustapha LITTLE, [id number] ####Commercial Account Manager: HALLEY HERNANDEZ ([phone])[facility] ([facility] [place] [address] [place] Chloride [Moles/Vol] 111 mmol/L High 98-107 [facility] Comment on above: Performed By: #### Mustapha LITTLE, [id number] ####Commercial Account Manager: HALLEY HERNANDEZ ([phone])[facility] ([facility])[address] [place] [address] [place] CO2 [Moles/Vol] 17 mmol/L Low 22-30 [facility] Comment on above: Performed By: #### Mustapha LITTLE, [id number] ####Commercial Account Manager: HALLEY HERNANDEZ ([phone])[facility] ([facility])[address] [place] [address] [place] Creatinine [Mass/Vol] 0.73 mg/dL Normal 0.52-1.04 [facility] Comment on above: Performed By: #### Mustapha LITTLE, LAB17 ####Commercial Account Manager: HALLEY HERNANDEZ ([phone])[facility] ([facility])[address] [place] [address] [place] GLOMERULAR FILTRATION RATE ML/MIN/1.73 SQ M.PREDICTED >90.0 Normal >60.0 [facility] Comment on above: Result Comment: Calc ulation based on the Chronic Kidney Disease Epidemiology Collaboration (CKD-EPI) equation refit without adjustment for race Performed By: #### Mustapha LITTLE, [id number] ####Commercial Account Manager: HALLEY HERNANDEZ ([phone])[facility])[address] [place] [address] Glucose [Mass/Vol] 76 mg/dL Normal 70-100 [facility] Comment on above: Performed By: #### Mustapha LITTLE, LAB17 ####Commercial Account Manager: HALLEY HERNANDEZ ([phone])[facility])[address] [place] [address] Potassium [Moles/Vol] 3.4 mmol/L Low 3.5-5.1 [facility] Comment on above: Performed By: #### Mustapha LITTLE, LAB17 ####Commercial Account Manager: HALLEY HERNANDEZ ([phone])[facility])[address] [place] [address] Protein [Mass/Vol] 6.8 g/dL Normal 6.3-8.2 [facility] Comment on above: Performed By: #### Mustapha LITTLE, LAB17 ####Commercial Account Manager: HALLEY HERNANDEZ ([phone])[facility])[address] [place] [address] Sodium [Moles/Vol] 137 mmol/L Normal 135-145 [facility] Comment on above: Performed By: #### Mustapha LITTLE, LAB17 ####Commercial Account Manager: HALLEY HERNANDEZ ([phone])[facility])[address] [place] [address] [place] Urea nitrogen [Mass/Vol] 8 mg/dL Normal 7-17 [facility] Comment on above: Performed By: #### Mustapha LITTLE, LAB17 ####Commercial Account Manager: HALLEY HERNANDEZ ([phone])[facility])[address] [place] [address] Comprehensive metabolic 1998 panelon 09-11-2023 Albumin [Mass/Vol] 3.3 g/dL Low 3.5 - 5.0 g/dL [facility] ALP [Catalytic activity/Vol] 107 U/L 38 - 126 U/L [facility] ALT [Catalytic activity/Vol] 52 U/L High 0 - 34 U/L [facility] Anion gap [Moles/Vol] 9 mmol/L 3 - 13 mmol/L [facility] AST [Catalytic activity/Vol] 98 U/L High 15 - 46 U/L [facility] Bilirubin [Mass/Vol] 2.3 mg/dL High 0.2 - 1 .3 mg/dL [facility] Calcium [Mass/Vol] 8.5 mg/dL 8.4 - 10. 4 mg/dL [facility] Chloride [Moles/Vol] 111 mmol/L High 98 - 10 7 mmol/L [facility] CO2 [Moles/Vol] 17 mmol/L Low 22 - 30 mmol/L [facility] Creatinine [Mass/Vol] 0.73 mg/dL 0.52 - 1.04 mg/dL [facility] GFR/1.73 sq M.predicted MDRD (S/P/Bld) [Vol rate/Area] - PINF [facility] Comment on above: Calculation based on the Chronic Kidney Disease Epidemiology Collaboration (CKD-EPI) equation refit without adjustment for race Glucose [Mass/Vol] 76 mg/dL 70 - 100 mg/dL [facility] Interpretation and review of laboratory results Abnormal [facility] Potassium [Moles/Vol] 3.4 mmol/L Low 3.5 - 5.1 mmol/L [facility] Protein [Mass/Vol] 6.8 g/dL 6.3 - 8.2 g/dL [facility] Sodium [Moles/Vol] 137 mmol/L 135 - 145 mmol/L [facility] Urea nitrogen [Mass/Vol] 8 mg/dL 7 - 17 mg/dL [facility] Laboratory - Chemistry and C hemistry - challengeon 09-11-2023 Ammonia (P) [Moles/Vol] 65 umol/L High 9 - 30 umol/L [facility] Laboratory - Drug toxicology Ordered By: Lorraine Hernandez on 09-11-2023 Amphetamines Screen method >1000 ng/mL Ql (U) Negative [facility] Barbiturates Screen method >200 ng/mL Ql (U) Negative [facility] Benzodiazepines Ql (U) Negative [facility] Methadone Screen Ql (U) Negative [facility] Opiates Screen Ql (U) Negative [facility] oxyCODONE Ql (U) Negative [facility] Phencyclidine Ql (U) Negative [facility] No Panel InformationOrdered By: Lorraine Hernandez on 09-11-2023 COCAINE METAB. SCREEN Negative [facility] The expected value f or all of [...] is needed, request confirmation under separate order. [facility] No Panel Informationon 09-11 [facility] Interpretation and review of laboratory results Abnormal [facility] Nursing Noteon 09-11-2023 Nursing Note Pt was found wanderi ng the hospital by security, confused. Pt brought back by security and she said she was going outside to smoke. She was very upset that she could not have a smoke. Pt threatened to punch someone in the face. Pt is confused. Normal [facility] Progress Noteon 09-11-2023 Progress Note Nutrition rescreen completed. Patient is NPO/Clear liquid >3 days with cirrhosis. Refer to Dietitian. DUTCH Bowers Normal [facility] AMMONIAon 09-10-2023 Ammonia (P) [Moles/Vol] 78 umol/L High 9-30 [facility] Comment on above: Performed By: #### L [id number] ####Commercial Account Manager: HALLEY HERNANDEZ ([phone])[facility] ([address] CBC (HEMOGRAM)on 09-10-2023 Erythrocyte distribution width (RBC) [Ratio] 21.4 % High 11.5-14.5 [facility] Comment on above: Result Comment: I-An isocytosis Performed By: #### L [id number] #### Commercial Account Manager: JAVID MILLERRosieRITA ([phone]) [facility] ([facility]) [address] ERYTHROCYTE MEAN CORPUSCULAR HEMOGLOBIN CONCENTRATION (G/DL) BY AUTOMATED 31.7 % Low 32.0-36.0 [facility] Comment on above: Performed By: #### L [id number] #### Commercial Account Manager: JAVID MILLERRONALD ([phone]) [facility] ([facility]) [address] Hematocrit (Bld) [Volume fraction] 28.8 % Low 35.0-47.0 [facility] Comment on above: Performed By: #### L [id number] #### Commercial Account Manager: AJVID ASHKAN ([phone]) [facility] ([facility]) [address] Hemoglobin (Bld) [Mass/Vol] 9.1 g/dL Low 11.7-16.0 [facility] Comment on above: Performed By: #### L [id number] #### Commercial Account Manager: JAVID VASQUEZRITA ([phone]) [facility] ([facility]) [address] MCH (RBC) [Entitic mass] 22.5 pg Low 26.0-34.0 [facility] Comment on above: Performed By: #### L [id number] #### Commercial Account Manager: JAVID VASQUEZRITA ([phone]) [facility] ([facility]) [address] MCV (RBC) [Entitic vol] 71.2 fL Low 80.0-98.0 [facility] Comment on above: Performed By: #### L [id number] #### Commercial Account Manager: JAVID VASQUEZRITA ([phone]) [facility] ([facility]) [address] Platelet mean volume (Bld) [Entitic vol] 8.9 fL Normal 7.4-12.4 [facility] Comment on above: Performed By: #### L [id number] #### Commercial Account Manager: JAVID LUTHER ([phone]) [facility] ([facility]) [address] Platelets (Bld) [#/Vol] 79 10*3/uL Low 140-440 [facility] Comment on above: Performed By: #### L [id number] #### Commercial Account Manager: JAVID LUTHER ([phone]) [facility] ([facility]) [address] RBC (Bld) [#/Vol] 4.05 10*6/uL Normal 3.8-5.20 [facility] Comment on above: Performed By: #### L [id number] #### Commercial Account Manager: JAVID LUTHER ([phone]) [facility] ([facility]) [address] WBC (Bld) [#/Vol] 8.2 10*3/uL Normal 3.6-10.7 [facility] Comment on above: Performed By: #### L [id number] #### Commercial Account Manager: JAVID LUTHER ([phone]) [facility] ([facility]) [address] CBC panel Auto (Bld)Ordered By: Oscar Wilkins on 09-10-2023 Erythrocyte distribution width (RBC) [Ratio] 21.4 % High 11.5 - 14.5 % [facility] Comment on above: I-Anisocytosis Hematocrit (Bld) [Volume fraction] 28.8 % Low 35.0 - 47.0 % [facility] Hemoglobin (Bld) [Mass/Vol] 9.1 g/dL Low 11.7 - 16.0 g/dL [facility] Interpretation and review of laboratory results Abnormal [facility] MCH (RBC) [Entitic mass] 22.5 pg Low 26.0 - 34.0 pg [facility] MCHC (RBC) [Mass/Vol] 31.7 % Low 32.0 - 36.0 % [facility] MCV (RBC) [Entitic vol] 71.2 fL Low 80.0 - 98.0 fL [facility] Platelet mean volume (Bld) [Entitic vol] 8.9 fL 7.4 - 12.4 fL [facility] Platelets (Bld) [#/Vol] 79 10*3/uL Low 140 - 440 10*3/uL [facility] RBC (Bld) [#/Vol] 4.05 10*6/uL 3.8 - 5.20 10*6/uL [facility] WBC (Bld) [#/Vol] 8.2 10*3/uL 3.6 - 10.7 10*3/uL [facility] COMPREHENSIVE METABOLIC PANE [place] 09-10-2023 Albumin [Mass/Vol] 2.8 g/dL Low 3.5-5.0 [facility] Comment on above: Performed By: #### Mustapha [id number], [id number], LAB17 ####Commercial Account Manager: HALLEY HERNANDEZ ([phone])[facility] ([facility])[address] [place] [address] ALP [Catalytic activity/Vol] 146 U/L High 38-126 [facility] Comment on above: Performed By: #### Mustapha [facility], [id number], LAB17 ####Commercial Account Manager: HALLEY HERNANDEZ ([phone])[facility] ([facility])[address] [place] [address] ALT [Catalytic activity/Vol] 54 U/L High 0-34 [facility] Comment on above: Performed By: #### Mustapha [facility], [id number], LAB17 ####Commercial Account Manager: HALLEY HERNANDEZ ([phone])[facility] ([facility])[address] [place] [address] Anion gap [Moles/Vol] 4 mmol/L Normal 3-13 [facility] Comment on above: Performed By: #### Mustapha ABSophia, [id number], LAB17 ####Commercial Account Manager: HALLEY HERNANDEZ ([phone])[facility])[address] [place] [address] AST [Catalytic activity/Vol] 103 U/L High 15-46 [facility] Comment on above: Performed By: #### L AB103, [id number], LAB17 ####Commercial Account Manager: HALLEY HERNANDEZ ([phone])[facility] ([facility])[address] [place] [address] Bilirubin [Mass/Vol] 2.5 mg/dL High 0.2-1.3 [facility] Comment on above: Performed By: #### L AB103, [id number], LAB17 ####Commercial Account Manager: HALLEY HERNANDEZ ([phone])[facility])[address] [place] [address] Calcium [Mass/Vol] 8.6 mg/dL Normal 8.4-10.4 [facility] Comment on above: Performed By: #### Mustapha AB103, [id number], LAB17 ####Commercial Account Manager: HALLEY HERNANDEZ ([phone])[facility] ([facility])[address] [place] [address] Chloride [Moles/Vol] 113 mmol/L High 98-107 [facility] Comment on above: Performed By: #### Mustapha AB103, [id number], LAB17 ####Commercial Account Manager: HALLEY HERNANDEZ ([phone])[facility] ([facility])[address] [place] [address] CO2 [Moles/Vol] 21 mmol/L Low 22-30 [facility] Comment on above: Performed By: #### Mustapha AB103, [id number], LAB17 ####Commercial Account Manager: HALLEY HERNANDEZ ([phone])[facility])[address] [place] [address] Creatinine [Mass/Vol] 0.81 mg/dL Normal 0.52-1.04 [facility] Comment on above: Performed By: #### L AB103, [id number], LAB17 ####Commercial Account Manager: HALLEY HERNANDEZ ([phone])[facility])[address] [place] [address] GLOMERULAR FILTRATION RATE ML/MIN/1.73 SQ M.PREDICTED 89.1 mL/min/1.73m*2 Normal >60.0 [facility] Comment on above: Result Comment: Calc ulation based on the Chronic Kidney Disease Epidemiology Collaboration (CKD-EPI) equation refit without adjustment for race Performed By: #### Mustapha [facility], [id number], LAB17 ####Commercial Account Manager: HALLEY HERNANDEZ ([phone])[facility] ([facility])[address] [place] [address] Glucose [Mass/Vol] 90 mg/dL Normal 70-100 [facility] Comment on above: Performed By: #### Mustapha [facility], [id number], LAB17 ####Commercial Account Manager: HALLEY HERNANDEZ ([phone])[facility] ([facility])[address] [place] [address] Potassium [Moles/Vol] 4.0 mmol/L Normal 3.5-5.1 [facility] Comment on above: Performed By: #### Mustapha [facility], [id number], LAB17 ####Commercial Account Manager: HALLEY HERNANDEZ ([phone])[facility] ([facility])[address] [place] [address] Protein [Mass/Vol] 6.4 g/dL Normal 6.3-8.2 [facility] Comment on above: Performed By: #### Mustapha [facility], [id number], LAB17 ####Commercial Account Manager: HALLEY HERNANDEZ ([phone])[facility] ([facility])[address] [place] [address] Sodium [Moles/Vol] 138 mmol/L Normal 135-145 [facility] Comment on above: Performed By: #### Mustapha [facility], [id number], LAB17 ####Commercial Account Manager: HALLEY HERNANDEZ ([phone])[facility])[address] [place] [address] [place] Urea nitrogen [Mass/Vol] 7 mg/dL Normal 7-17 [facility] Comment on above: Performed By: #### Mustapha [facility], [id number], LAB17 ####Commercial Account Manager: HALLEY HERNANDEZ ([phone])[facility])[address] [place] [address] Comprehensive metabolic 1998 panelon 09-10-2023 Albumin [Mass/Vol] 2.8 g/dL Low 3.5 - 5.0 g/dL [facility] ALP [Catalytic activity/Vol] 146 U/L High 38 - 126 U/L [facility] ALT [Catalytic activity/Vol] 54 U/L High 0 - 34 U/L [facility] Anion gap [Moles/Vol] 4 mmol/L 3 - 13 mmol/L [facility] AST [Catalytic activity/Vol] 103 U/L High 15 - 46 U/L [facility] Bilirubin [Mass/Vol] 2.5 mg/dL High 0.2 - 1 .3 mg/dL [facility] Calcium [Mass/Vol] 8.6 mg/dL 8.4 - 10. 4 mg/dL [facility] Chloride [Moles/Vol] 113 mmol/L High 98 - 10 7 mmol/L [facility] CO2 [Moles/Vol] 21 mmol/L Low 22 - 30 mmol/L [facility] Creatinine [Mass/Vol] 0.81 mg/dL 0.52 - 1.04 mg/dL [facility] GFR/1.73 sq M.predicted MDRD (S/P/Bld) [Vol rate/Area] 89.1 mL/min/{1.73_m2} - PINF [facility] Comment on above: Calculation based on the Chronic Kidney Disease Epidemiology Collaboration (CKD-EPI) equation refit without adjustment for race Glucose [Mass/Vol] 90 mg/dL 70 - 100 mg/dL [facility] Interpretation and review of laboratory results Abnormal [facility] Potassium [Moles/Vol] 4.0 mmol/L 3.5 - 5.1 mmol/L [facility] Protein [Mass/Vol] 6.4 g/dL 6.3 - 8.2 g/dL [facility] Sodium [Moles/Vol] 138 mmol/L 135 - 145 mmol/L [facility] Urea nitrogen [Mass/Vol] 7 mg/dL 7 - 17 mg/dL [facility] ED Nursing Noteon 09-10-2023 ED Nursing Note Report given to 7W a t this time. Transport en route. Laura Antony RN 09/10/23 5623 Normal [facility] ED Nursing Note They are here now to transport the patient to [facility] 09/10/23 2126 Normal [facility] ED Nursing Note [facility] ET A 0430 RN will call report in a few :) Afua Haas 09/10/23 0432 Normal [facility] Guidance for paracentesis of Peritoneumon 09-10-2023 Trace ascites, not amenable to ultrasound-guided paracentesis. Paracentesis not performed. Report Dictated on Electronically Signed By: Lynn Edwards MD Electronically Signed Date/Time: 09/10/2023 8:54 AM EST [facility] Patient Name: CAROLINA HIGHTOWER : 1975 [...] of fluid amenable to ultrasound guided paracentesis. [facility] Lynn Edwards MD - 09/10/2023 Patient Name: CAROLINA HIGHTOWER : 1975 [...] performed. Report Dictated on Electronically Signed By: Lynn Edwards MD Electronically Signed Date/Time: 09/10/2023 8:54 AM EST [facility] Radiology Study observation (narrative) [facility] Guidance for paracentesis of PeritoneumOrdered By: Lynn Edwards on 09-10-2023 [facility] Work Phone: IRON AND TIBCon 09-10-2023 IRON BINDING CAPACITY 376 ug/dL Normal 261-497 [facility] Comment on above: Performed By: #### L [id number], [id number], LAB17 ####Commercial Account Manager: HALLEY HERNANDEZ ([phone])[facility] ([facility])[address] [place] [address] IRON SATURATION 13 % Low 15-50 [facility] Comment on above: Performed By: #### L AB103, [id number], LAB17 ####Commercial Account Manager: HALLEY HERNANDEZ ([phone])[facility] ([facility])[address] [place] [address] IRON, TOTAL 48 ug/dL Normal 37-170 [facility] Comment on above: Performed By: #### L AB103, [id number], LAB17 ####Commercial Account Manager: HALLEY HERNANDEZ ([phone])[facility] ([facility])[address] [place] [address] Iron and Iron binding capaci ty panelon 09-10-2023 Interpretation and review of laboratory results Abnormal [facility] Iron [Mass/Vol] 48 ug/dL 37 - 170 ug/dL [facility] Iron binding capacity [Mass/Vol] 376 ug/dL 261 - 497 ug/dL [facility] Iron saturation [Mass fraction] 13 % Low 15 - 50 % [facility] Laboratory - Chemistry and C hemistry - challengeon 09-10-2023 Magnesium [Mass/Vol] 1.7 mg/dL 1.6 - 2 .3 mg/dL [facility] Ammonia (P) [Moles/Vol] 78 umol/L High 9 - 30 umol/L [facility] Troponin I.cardiac [Mass/Vol] ng/mL NINF - 0.034 ng/mL [facility] Laboratory - Coagulationon 1 11-11-2022 aPTT Coag (PPP) [Time] 40.2 s High 20.0 - 30.5 s [facility] INR Coag (PPP) [Relative time] 1.7 {INR} High 0.9 - 1.1 [facility] Comment on above: Recommended Anticoag ulant [...] (Bld) [Time] 17.0 s High 9.0 - 12.0 s [facility] MAGNESIUMon 09-10-2023 Magnesium [Mass/Vol] 1.7 mg/dL Normal 1.6-2.3 [facility] Comment on above: Performed By: #### L AB103, [id number], LAB17 ####Commercial Account Manager: HALLEY HERNANDEZ ([phone])[facility] ([facility])[address] [place] [address] Magnesium [Mass/Vol]on 09-10 Interpretation and review of laboratory results Normal [facility] No Panel Informationon 09-10 Interpretation and review of laboratory results Abnormal [facility] Interpretation and review of laboratory results Abnormal [facility] PROTIME AND APTTon aPTT Coag (Bld) [Time] 40.2 s High 20.0-30.5 [facility] Comment on above: Performed By: #### Mustapha [id number] ####Commercial Account Manager: HALLEY HERNANDEZ ([phone])[facility] ([facility])[address] [place] [address] INR Coag (PPP) [Relative time] 1.7 {INR} High 0.9-1.1 [facility] Comment on above: Result Comment: Giorgio [...] prevent Myocardial Infarction Performed By: #### L [id number] ####Commercial Account Manager: HALLEY HERNANDEZ ([phone])[facility] ([facility] [place] [address] PT Coag (PPP) [Time] 17.0 s High 9.0-12.0 [facility] Comment on above: Performed By: #### L [id number] ####Commercial Account Manager: HALLEY HERNANDEZ ([phone])[facility] ([facility])[address] [place] [address] Progress Noteon 09-10-2023 Progress Note Patient seen, [...] We will continue to follow closely. Normal [facility] TROPONIN Ion 09-10-2023 Troponin I.cardiac [Mass/Vol] ng/mL Normal <0.034 [facility] Comment on above: Result Comment: KIKE Cohen COMMENTS: Patients with high levels of Biotin oral intake (ie >5 mg/day) may have falsely decreased Troponin levels. Performed By: #### L [id number] #### Commercial Account Manager: JAVID LUTHER ([phone]) [facility] ([facility]) [address] [place] [address] Troponin I.cardiac [Mass/Vol] ng/mL Normal <0.034 [facility] Comment on above: Result Comment: KIKE Cohen COMMENTS: Patients with high levels of Biotin oral intake (ie >5 mg/day) may have falsely decreased Troponin levels. Performed By: #### L [id number] ####Commercial Account Manager: JAVID LUTHER ([phone])[facility] ([facility])[address] [place] [address] Troponin I.cardiac [Mass/Vol ]on 09-10-2023 Interpretation and review of laboratory results Normal [facility] Patients with high levels of Biotin oral intake (ie >5 mg/day) may have falsely decreased Troponin levels. [facility] US GUIDED ABDOMINAL PARACENT [...] performed. Report Dictated on Electronically Signed By: Lynn Edwards MD Electronically Signed Date/Time: 09/10/2023 8:54 AM EST Normal [facility] AMMONIAon 09-09-2023 Ammonia (P) [Moles/Vol] 106 umol/L High 9-30 [facility] Comment on above: Performed By: #### L [id number] ####Commercial Account Manager: JAVID LUTHER ([phone])[facility] ([facility])[address] [place] [address] BASIC METABOLIC PANELon 08-26 Anion gap [Moles/Vol] 8 mmol/L Normal 3-13 [facility] Comment on above: Performed By: #### L AB15, [id number], [id number], LAB99 ####Commercial Account Manager: JAVID LUTHER ([phone])[facility] ([facility])[address] [place] [address] Calcium [Mass/Vol] 8.7 mg/dL Normal 8.4-10.4 [facility] Comment on above: Performed By: #### L AB15, [id number], LAB20, LAB99 ####Commercial Account Manager: JAVID LUTHER ([phone])[facility]ENTER[facility] ([facility])[address] [place] [address] [place] Chloride [Moles/Vol] 109 mmol/L High 98-107 [facility] Comment on above: Performed By: #### L AB15, [id number], LAB20, LAB99 ####Commercial Account Manager: JAVID LUTHER ([phone])[facility] (SBHLAB)[address] CO2 [Moles/Vol] 19 mmol/L Low 22-30 [facility] Comment on above: Performed By: #### L AB15, [id number], LAB20, LAB99 ####Commercial Account Manager: JAVID LUTHER ([phone])[facility] (SBAB)[address] Creatinine [Mass/Vol] 0.73 mg/dL Normal 0.52-1.04 [facility] Comment on above: Performed By: #### L AB15, [id number], LAB20, LAB99 ####Commercial Account Manager: JAVID LUTHER ([phone])[facility] ([facility])[address] GLOMERULAR FILTRATION RATE ML/MIN/1.73 SQ M.PREDICTED >90.0 Normal >60.0 [facility] Comment on above: Result Comment: Calc ulation based on the Chronic Kidney Disease Epidemiology Collaboration (CKD-EPI) equation refit without adjustment for race ORDER COMMENTS: CHEMISTRY SPECIMEN SLIGHTLY HEMOLYZED; INTERPRET WITH CAUTION! Performed By: #### L AB15, [id number], LAB20, LAB99 ####Commercial Account Manager: JAVID LUTHER ([phone])[facility] (SBHLAB)[address] [place] [address] [place] Glucose [Mass/Vol] 139 mg/dL High 70-100 [facility] Comment on above: Performed By: #### L AB15, [id number], LAB20, LAB99 ####Commercial Account Manager: JAVID LUTHER ([phone])[facility] (SBHLAB)[address] Potassium [Moles/Vol] 4.3 mmol/L Normal 3.5-5.1 [facility] Comment on above: Performed By: #### L AB15, [id number], LAB20, LAB99 ####Commercial Account Manager: JAVID LUTHER ([phone])[facility] (SBHLAB)[address] Sodium [Moles/Vol] 136 mmol/L Normal 135-145 [facility] Comment on above: Performed By: #### L AB15, [id number], LAB20, LAB99 ####Commercial Account Manager: JAVID LUTHER ([phone])[facility] (SBHLAB)[address] Urea nitrogen [Mass/Vol] 7 mg/dL Normal 7-17 [facility] Comment on above: Performed By: #### L AB15, [id number], LAB20, LAB99 ####Commercial Account Manager: JAVID LUTHER ([phone])[facility] (SBHLAB)[address] Basic metabolic 1998 panelon 09-09-2023 Anion gap [Moles/Vol] 8 mmol/L 3 - 13 mmol/L [facility] Calcium [Mass/Vol] 8.7 mg/dL 8.4 - 10. 4 mg/dL [facility] Chloride [Moles/Vol] 109 mmol/L High 98 - 10 7 mmol/L [facility] CO2 [Moles/Vol] 19 mmol/L Low 22 - 30 mmol/L [facility] Creatinine [Mass/Vol] 0.73 mg/dL 0.52 - 1.04 mg/dL [facility] GFR/1.73 sq M.predicted MDRD (S/P/Bld) [Vol rate/Area] - PINF [facility] Comment on above: Calculation based on the Chronic Kidney Disease Epidemiology Collaboration (CKD-EPI) equation refit without adjustment for race Glucose [Mass/Vol] 139 mg/dL High 70 - 100 mg/dL [facility] Potassium [Moles/Vol] 4.3 mmol/L 3.5 - 5.1 mmol/L [facility] Sodium [Moles/Vol] 136 mmol/L 135 - 145 mmol/L [facility] Urea nitrogen [Mass/Vol] 7 mg/dL 7 - 17 mg/dL [facility] CBC W Auto Differential pane l (Bld)Ordered By: Saida York on 09-09-2023 Erythrocyte distribution width (RBC) [Ratio] 21.6 % High 11.5 - 14.5 % [facility] Hematocrit (Bld) [Volume fraction] 32.4 % Low 35.0 - 47.0 % [facility] Hemoglobin (Bld) [Mass/Vol] 10.4 g/dL Low 11.7 - 16.0 g/dL [facility] Interpretation and review of laboratory results Abnormal [facility] MCH (RBC) [Entitic mass] 22.8 pg Low 26.0 - 34.0 pg [facility] MCHC (RBC) [Mass/Vol] 32.0 % 32.0 - 36.0 % [facility] MCV (RBC) [Entitic vol] 71.1 fL Low 80.0 - 98.0 fL [facility] Nucleated RBC/100 WBC (Bld) [Ratio] 0.2 % [facility] Platelet mean volume (Bld) [Entitic vol] 9.2 fL 7.4 - 12.4 fL [facility] Platelets (Bld) [#/Vol] 95 10*3/uL Low 140 - 440 10*3/uL [facility] RBC (Bld) [#/Vol] 4.56 10*6/uL 3.8 - 5.20 10*6/uL [facility] WBC (Bld) [#/Vol] 9.4 10*3/uL 3.6 - 10.7 10*3/uL [facility] CBC WITH AUTO DIFFERENTIALon 09-09-2023 Erythrocyte distribution width (RBC) [Ratio] 21.6 % High 11.5-14.5 [facility] Comment on above: Performed By: #### L [id number], [id number] ####Commercial Account Manager: JAVID LUTHER ([phone])[facility] ([facility])[address] [place] [address] ERYTHROCYTE MEAN CORPUSCULAR HEMOGLOBIN CONCENTRATION (G/DL) BY AUTOMATED 32.0 % Normal 32.0-36.0 [facility] Comment on above: Performed By: #### L [id number], [id number] ####Commercial Account Manager: JAVID LUTHER ([phone])[facility] (SBHLAB)[address] Hematocrit (Bld) [Volume fraction] 32.4 % Low 35.0-47.0 [facility] Comment on above: Performed By: #### L [id number], [id number] ####Commercial Account Manager: JAVID LUTHER ([phone])[facility]A [facility] (SBHLAB)[address] [place] [address] Hemoglobin (Bld) [Mass/Vol] 10.4 g/dL Low 11.7-16.0 [facility] Comment on above: Performed By: #### L [id number], [id number] ####Commercial Account Manager: JAVID LUTHER ([phone])[facility] (SBHLAB)[address] [place] [address] MCH (RBC) [Entitic mass] 22.8 pg Low 26.0-34.0 [facility] Comment on above: Performed By: #### L [id number], [id number] ####Commercial Account Manager: JAVID LUTHER ([phone])[facility]ENTERAmbreen [facility] (SBHLAB)[address] [place] [address] MCV (RBC) [Entitic vol] 71.1 fL Low 80.0-98.0 [facility] Comment on above: Performed By: #### L [id number], [id number] ####Commercial Account Manager: JAVID LUTHER ([phone])[facility]A [facility]N (SBHLAB)[address] NRBC (PER 100 WBCS) BY AUTOMATED COUNT 0.2 /100 WBCs Normal 0.0-2.0 [facility] Comment on above: Performed By: #### L [id number], [id number] ####Commercial Account Manager: JAVID LUTHER ([phone])[facility]ENTERAmbreen SHULTZN (SBHLAB)[address] Platelet mean volume (Bld) [Entitic vol] 9.2 fL Normal 7.4-12.4 [facility] Comment on above: Performed By: #### L [id number], [id number] ####Commercial Account Manager: JAVID LUTHER ([phone])[facility]ENTERAmbreen [facility]ILL[facility]ITALN (SBHLAB)[address] Platelets (Bld) [#/Vol] 95 10*3/uL Low 140-440 [facility] Comment on above: Performed By: #### L [id number], [id number] ####Commercial Account Manager: JAVID LUTHER ([phone])[facility] (SBHLAB)[address] RBC (Bld) [#/Vol] 4.56 10*6/uL Normal 3.8-5.20 [facility] Comment on above: Performed By: #### L [id number], [id number] ####Commercial Account Manager: JAVID LUTHER ([phone])[facility] (SBHLAB)[address] WBC (Bld) [#/Vol] 9.4 10*3/uL Normal 3.6-10.7 [facility] Comment on above: Performed By: #### L [id number], [id number] ####Commercial Account Manager: JAVID LUTHER ([phone])[facility] (SBHLAB)[address] COMPLETE URINALYSISon 2022 BACTERIA (#/HPF) IN URINE Moderate Abnormal Negative [facility] Comment on above: Performed By: #### L [id number] #### Commercial Account Manager: JAVID LUTHER ([phone]) [facility] (SBHLAB) [address] BILIRUBIN, TOTAL PRESENCE IN URINE Negative Normal Negative [facility] Comment on above: Performed By: #### L [id number] #### Commercial Account Manager: JAVID MARTINEZCER ([phone]) [facility] (SBHLAB) [address] Clarity (U) Clear Normal Clear [facility] Comment on above: Performed By: #### L [id number] #### Commercial Account Manager: JAVID VASQUEZRITA ([phone]) [facility] (SBHLAB) [address] Color (U) Yellow Normal Lt. Yellow [facility] Comment on above: Performed By: #### L [id number] #### Commercial Account Manager: JAVID VASQUEZRITA ([phone]) [facility] ([facility]) [address] GLUCOSE (MG/DL) IN URINE Normal Normal Normal (<70) [facility] Comment on above: Performed By: #### L [id number] #### Commercial Account Manager: JAVID LUTHER ([phone]) [facility] ([facility]) [address] HEMOGLOBIN PRESENCE IN URINE 0.2 mg/dL Abnormal Negative [facility] Comment on above: Performed By: #### L [id number] #### Commercial Account Manager: JAVID VASQUEZRITA ([phone]) [facility] ([facility]) [address] Ketones Ql (U) Negative Normal Negative [facility] Comment on above: Performed By: #### L [id number] #### Commercial Account Manager: JAVID LUTHER ([phone]) [facility] (SBHLAB) [address] LEUKOCYTE ESTERASE PRESENCE IN URINE BY TEST STRIP Negative Normal Negative [facility] Comment on above: Performed By: #### L [id number] #### Commercial Account Manager: JAVID LUTHER ([phone]) [facility] (SBHLAB) [address] [place] [address] [place] MUCUS (#/LPF) IN URINE SEDIMENT Few Normal Negative [facility] Comment on above: Performed By: #### L [id number] #### Commercial Account Manager: JAVID LUTHER ([phone]) [facility] (SBHLAB) [address] [place] [address] [place] NITRITE PRESENCE IN URINE Negative Normal Negative [facility] Comment on above: Performed By: #### L [id number] #### Commercial Account Manager: JAVID LUTHER ([phone]) [facility] (SBHLAB) [address] [place] [address] [place] NON-SQUAMOUS EPITHELIAL (#/HPF) IN URINE 0-2 Abnormal Negative [facility] Comment on above: Performed By: #### L [id number] #### Commercial Account Manager: JAVID LUTHER ([phone]) [facility] (SBHLAB) [address] pH (U) 6.5 [pH] Normal 5.0-8.0 [facility] Comment on above: Performed By: #### L [id number] #### Commercial Account Manager: JAVID LUTHER ([phone]) [facility] (SBHLAB) [address] Protein (U) [Mass/Vol] Negative Normal Negative [facility] Comment on above: Performed By: #### L [id number] #### Commercial Account Manager: JAVID LUTHER ([phone]) [facility] (SBHLAB) [address] [place] [address] [place] RBC (#/HPF) IN URINE SEDIMENT 3-5 Abnormal 0-2 [facility] Comment on above: Performed By: #### L [id number] #### Commercial Account Manager: JAVID LUTHER ([phone]) [facility] (SBHLAB) [address] [place] [address] [place] Specific gravity (U) [Rel density] 1.010 Normal 1.005-1.030 [facility] Comment on above: Performed By: #### L [id number] #### Commercial Account Manager: JAVID LUTHER ([phone]) [facility] (SBHLAB) [address] SQUAMOUS EPITHELIAL CELLS (#/HPF) IN URINE SEDIMENT 6-10 Abnormal 3-5 [facility] Comment on above: Performed By: #### L [id number] #### Commercial Account Manager: JAVID ASHKAN ([phone]) [facility] (SBHLAB) [address] UROBILINOGEN (MG/DL) IN URINE Normal Normal Normal (0-1) [facility] Comment on above: Performed By: #### L [id number] #### Commercial Account Manager: JAVID MILLERRONALD ([phone]) [facility] (SBHLAB) [address] WBC (LEUKOCYTE) (#/HPF) IN URINE SEDIMENT 0-2 Normal 0-5 [facility] Comment on above: Performed By: #### L [id number] #### Commercial Account Manager: JAVID MILLERRONALD ([phone]) [facility] ([facility]) [address] [place] [address] COVID-19, Flu A/B, and RSV C omboon 09-09-2023 Interpretation and review of laboratory results Normal [facility] CT ABDOMEN PELVIS W CONTRAST on 09-09-2023 CT ABDOMEN PELVIS W CONTRAST Patient Name: CAROLINA HIGHTOWER : 1975 [facility]#: [id number] Exam Date/Time: 09/09/2023 20:11 Procedure: CT ABDOMEN [...] Free air or fluid: Large amount ascites. Mesenteric/retroperiton eal: Innumerable conspicuous but nonenlarged central mesenteric lymph [...] EST Abdominal pain, hx of cirrhosis Normal [facility] CT Abdomen and Pelvis W cont [...] Electronically Signed Date/Time: 09/09/2023 8:28 PM EST [facility] [employer] [facility] Patient Name: CAROLINA HIGHTOWER : 1975 [...] Free air or fluid: Large amount ascites. Mesenteric/retroperiton eal: Innumerable conspicuous but nonenlarged central mesenteric lymph [...] Unremarkable osseous structures. No suspicious osseous lesion. [facility] Scot Shah MD - 09/09/2023 Patient Name: CAROLINA HIGHTOWER : 1975 [id number] Exam Date/Time: 09/09/2023 20:11 Procedure: CT ABDOMEN [...] Free air or fluid: Large amount ascites. Mesenteric/retroperiton eal: Innumerable conspicuous but nonenlarged central mesenteric lymph [...] Electronically Signed Date/Time: 09/09/2023 8:28 PM EST [employer] Radiology Study observation (narrative) [facility] CT Abdomen and Pelvis W cont rast IVOrdered By: Scot Shah on 09-09-2023 [employer] Work Phone: DRUGS OF ABUSEon 09-09-2023 AMPHETAMINE SCREEN Negative Normal [facility] [employer] [facility] Comment on above: Performed By: #### L [id number] ####Commercial Account Manager: JAVID LUTHER ([phone])[facility] [place] (SBHLAB)[address] BARBITURATES SCREEN Negative Normal [facility] Comment on above: Performed By: #### L [id number] ####Commercial Account Manager: JAVID MILLERRONALD ([phone])[facility] (SBHLAB)[address] BENZODIAZEPINE SCREEN Negative Normal [facility] Comment on above: Performed By: #### L [id number] ####Commercial Account Manager: JAVID VASQUEZRITA ([phone])[facility] (SBHLAB)[address] COCAINE METAB. SCREEN Negative Normal [facility] Comment on above: Performed By: #### L [id number] ####Commercial Account Manager: JAVID VASQUEZRITA ([phone])[facility] (SBHLAB)[address] METHADONE SCREEN Negative Normal [facility] Comment on above: Performed By: #### L [id number] ####Commercial Account Manager: JAVID VASQUEZRITA ([phone])[facility] (SBHLAB)[address] OPIATES SCREEN Negative Normal [facility] Comment on above: Performed By: #### L [id number] ####Commercial Account Manager: JAVID VASQUEZRITA ([phone])[facility] (SBHLAB)[address] OXYCODONE SCREEN Negative Normal [facility] Comment on above: Performed By: #### L [id number] ####Commercial Account Manager: JAVID LUTHER ([phone])[facility] (SBHLAB)[address] PHENCYCLIDINE SCREEN Negative Normal [facility] Comment on above: Result Comment: ORDE [...] under separate order. Performed By: #### L [id number] ####Commercial Account Manager: JAVID LUTHER ([phone])[facility] (SBHLAB)[address] [place] [address] ECG 12-LEADon 09-09-2023 ECG 12-LEAD IMPRESSION: Sinus rhythm Low voltage, precordial leads Borderline prolonged QT interval Electronically Signed On 09-09-2023 19:59:30 EST by Lenny Macdonald [facility] ED Nursing Noteon 09-09-2023 ED Nursing Note Pt c/o abdominal arturo n that began this afternoon, states that she has hx of cirrhosis. Family states she seems off. Normal [facility] ED Provider Noteon ED Provider Note Emergency Department Encounter [facility] ED Patient: Carolina Hightower : 1975 Date of Evaluation: 09/09/2023 ED Supervising Physician: Lenny Macdonald MD I independently examined and evaluated Carolina Hightower. This will serve as my Supervisory note as the emergency room clinician of record and shared attestation. I [...] made by myself in conjunction with the Resident/DARWIN. I also supervised lopez portions of any procedures performed by the Resident/DARWIN. For all further details of the patient's [...] [employer] Lenny Macdonald MD 09/12/23 1500 [facility] ED Provider Note EMERGENCY DEPARTMENT ENCOUNTER [...] bedside and states that the patient seems off. When this was further questioning patient's family [...] Abnormal BILI (more content not included)... Normal [facility] HCG QUALITATIVE URINEon 08-26 Beta HCG ( test) Ql (U) Negative Normal Negative [facility] Comment on above: Result Comment: Plea se note: Very dilute urine specimens, as indicated by a low specific gravity, may not contain inside sales account representative levels of hCG. If is still suspected, a first morning urine specimen should be collected 48 hours later and tested. ORDER COMMENTS: is the most common reason for HCG in urine, although choriocarcinoma, hydatidiform mole, and certain nontrophoblastic malignancies also result in detectable urinary HCG levels. Sensitivity = 20mIU/mL. Performed By: #### L [id number] #### Commercial Account Manager: JAVID LUTHER ([phone]) [facility] ([facility]) [address] [place] [address] HEPATIC FUNCTION PANELon Albumin [Mass/Vol] 3.2 g/dL Low 3.5-5.0 [facility] Comment on above: Performed By: #### L AB15, [id number], LAB20, LAB99 ####Commercial Account Manager: JAVID LUTHER ([phone])[facility] ([facility])[address] [place] [address] ALP [Catalytic activity/Vol] 149 U/L High 38-126 [facility] Comment on above: Performed By: #### L AB15, [id number], LAB20, LAB99 ####Commercial Account Manager: JAVID LUTHER ([phone])[facility] [place] (SBHLAB)[address] ALT [Catalytic activity/Vol] 59 U/L High 0-34 [facility] Comment on above: Performed By: #### L AB15, [id number], LAB20, LAB99 ####Commercial Account Manager: JAVID LUTHER ([phone])[facility] (SBHLAB)[address] AST [Catalytic activity/Vol] 124 U/L High 15-46 [facility] Comment on above: Performed By: #### L AB15, [id number], LAB20, LAB99 ####Commercial Account Manager: JAVID VASQUEZRITA ([phone])[facility] (SBHLAB)[address] Bilirubin [Mass/Vol] 2.7 mg/dL High 0.2-1.3 [facility] Comment on above: Performed By: #### L AB15, [id number], LAB20, LAB99 ####Commercial Account Manager: JAVID LUTHER ([phone])[facility] (SBHLAB)[address] Bilirubin.indirect [Mass/Vol] 0.0 mg/dL Normal 0.0-0.3 [facility] Comment on above: Performed By: #### L AB15, [id number], LAB20, LAB99 ####Commercial Account Manager: JAVID VASQUEZRITA ([phone])[facility] (SBHLAB)[address] Protein [Mass/Vol] 7.2 g/dL Normal 6.3-8.2 [facility] Comment on above: Result Comment: KIKE Cohen COMMENTS: CHEMISTRY SPECIMEN SLIGHTLY HEMOLYZED; INTERPRET WITH CAUTION! Performed By: #### L AB15, [id number], LAB20, LAB99 ####Commercial Account Manager: JAVID LUTHER ([phone])[facility] (SBHLAB)[address] Hepatic function 2000 panelo n 09-09-2023 Albumin [Mass/Vol] 3.2 g/dL Low 3.5 - 5.0 g/dL [facility] ALP [Catalytic activity/Vol] 149 U/L High 38 - 126 U/L [facility] ALT [Catalytic activity/Vol] 59 U/L High 0 - 34 U/L [facility] AST [Catalytic activity/Vol] 124 U/L High 15 - 46 U/L [facility] Bilirubin [Mass/Vol] 2.7 mg/dL High 0.2 - 1 .3 mg/dL [facility] Bilirubin.conjugated [Mass/Vol] 0.0 mg/dL 0.0 - 0.3 mg/dL [facility] Protein [Mass/Vol] 7.2 g/dL 6.3 - 8.2 g/dL [facility] LIPASEon 09-09-2023 Lipase [Catalytic activity/Vol] 188 U/L Normal 23-300 [facility] Comment on above: Performed By: #### L AB15, [id number], LAB20, LAB99 ####Commercial Account Manager: JAVID LUTHER ([phone])[facility] (SBHLAB)[address] Laboratory - Chemistry and C hemistry - challengeon 09-09-2023 Troponin I.cardiac [Mass/Vol] ng/mL NINF - 0.034 ng/mL [facility] Beta HCG ( test) Ql Negative Negative [facility] Comment on above: Please note: Very di lute urine specimens, as indicated by a low specific gravity, may not contain inside sales account representative levels of hCG. If is still suspected, a first morning urine specimen should be collected 48 hours later and tested. Beta HCG ( test) Ql (U) is the most common reason for HCG in urine, although choriocarcinoma, hydatidiform mole, and certain nontrophoblastic malignancies also result in detectable urinary HCG levels. Sensitivity = 20mIU/mL. [facility] Troponin I.cardiac [Mass/Vol] ng/mL NINF - 0.034 ng/mL [facility] Lipase [Catalytic activity/Vol] 188 U/L 23 - 300 U/L [facility] Ammonia (P) [Moles/Vol] 106 umol/L High 9 - 30 umol/L [facility] Laboratory - Microbiology an d Antimicrobial susceptibilityon 09-09-2023 FLUAV RNA PHYLLIS+probe Ql (Resp) Not detected Not Detected [facility] FLUBV RNA PHYLLIS+probe Ql (Resp) Not detected Not Detected [facility] RSV RNA PHYLLIS+probe Ql (Resp) Not detected Not Detected [facility] SARS-CoV-2 (COVID-19) RNA PHYLLIS+probe Ql (Resp) Not detected Not Detected [facility] SARS-CoV-2 (COVID-19) RNA PHYLLIS+probe Ql (Unsp spec) Methodology: real-time, RT-PCR The SARS-CoV-2, Flu A/B, and RSV Combo assay is intended for in vitro diagnostic use under the FDA Emergency Use Authorization (EUA). This test has not been FDA cleared or approved. In compliance with this authorization, please visit www.fda.gov/media/44123 5/download or www.fda.gov/media/91728 6/download to access the applicable information sheets. [facility] Lipase [Catalytic activity/V ol]on 09-09-2023 Interpretation and review of laboratory results Normal [facility] MANUAL DIFFERENTIALon 2022 ANISOCYTOSIS PRESENCE IN BLOOD BY LIGHT MICROSCOPY Moderate Abnormal (none) [facility] Comment on above: Performed By: #### L [id number], [id number] ####Commercial Account Manager: JAVID LUTHER ([phone])[facility] ([facility])[address] [place] [address] BASOPHILS (10*3/UL) IN BLOOD BY MANUAL COUNT 0.1 10*3/uL Normal 0.0-0.2 [facility] Comment on above: Performed By: #### L [id number], [id number] ####Commercial Account Manager: JAVID LUTHER ([phone])[facility] ([facility])[address] BASOPHILS TOTAL PER COUNTED LEUKOCYTES BY MANUAL COUNT 1 Normal [facility] Comment on above: Performed By: #### L [id number], [id number] ####Commercial Account Manager: JAVID LUTHER ([phone])[facility] ([facility])[address] [place] [address] [place] BASOPHILS/100 LEUKOCYTES IN BLOOD BY MANUAL COUNT 1 % Normal 0-2 [facility] Comment on above: Performed By: #### L [id number], [id number] ####Commercial Account Manager: JAVID LUTHER ([phone])[facility] (SBHLAB)[address] CELLS COUNTED TOTAL (#) IN BLOOD 100 Normal [facility] Comment on above: Performed By: #### L [id number], [id number] ####Commercial Account Manager: JAVID LUTHER ([phone])[facility] (SBHLAB)[address] DIFFERENTIAL METHOD Automated differenti al reported after manual slide review Normal [facility] Comment on above: Performed By: #### L [id number], [id number] ####Commercial Account Manager: JAVID LUTHER ([phone])[facility] [place] ([facility])[address] [place] [address] [place] EOSINOPHILS (10*3/UL) IN BLOOD BY MANUAL COUNT 0.4 10*3/uL Normal 0.0-0.5 [facility] Comment on above: Performed By: #### L [id number], [id number] ####Commercial Account Manager: JAVID LUTHER ([phone])[facility] (SBHLAB)[address] [place] [address] [place] EOSINOPHILS TOTAL PER COUNTED LEUKOCYTES BY MANUAL COUNT 4 High 0-1 [facility] Comment on above: Performed By: #### L [id number], [id number] ####Commercial Account Manager: JAVID LUTHER ([phone])[facility] (SBHLAB)[address] [place] [address] [place] EOSINOPHILS/100 LEUKOCYTES IN BLOOD BY MANUAL COUNT 4 % Normal 1-6 [facility] Comment on above: Performed By: #### L [id number], [id number] ####Commercial Account Manager: JAVID LUTHER ([phone])[facility] (SBHLAB)[address] [place] [address] [place] HYPOCHROMIA (PRESENCE) IN BLOOD BY LIGHT MICROSCOPY Slight Abnormal (none) [facility] Comment on above: Performed By: #### L [id number], [id number] ####Commercial Account Manager: JAVID LUTHER ([phone])[facility] [place] ([facility])[address] LEUKOCYTE MORPHOLOGY FINDING IN BLOOD Normal Normal [facility] Comment on above: Performed By: #### L [id number], [id number] ####Commercial Account Manager: JAVID LUTHER ([phone])[facility] [place] ([facility])[address] [place] [address] [place] LEUKOCYTES (10*3/UL) NUCLEATED ERYTHROCYTE ADJUST 9.4 10*3/uL Normal 3.6-10.7 [facility] Comment on above: Performed By: #### L [id number], [id number] ####Commercial Account Manager: JAVID LUTHER ([phone])[facility] [place] ([facility])[address] [place] [address] [place] LYMPHOCYTES (10*3/UL) IN BLOOD BY MANUAL COUNT 2.0 10*3/uL Normal 1.0-4.3 [facility] Comment on above: Performed By: #### L [id number], [id number] ####Commercial Account Manager: JAVID LUTHER ([phone])[facility] [place] ([facility])[address] [place] [address] [place] LYMPHOCYTES TOTAL PER COUNTED LEUKOCYTES BY MANUAL COUNT 21 Normal [facility] Comment on above: Performed By: #### L [id number], [id number] ####Commercial Account Manager: JAVID LUTHER ([phone])[facility] [place] ([facility])[address] [place] [address] [place] LYMPHOCYTES/100 LEUKOCYTES IN BLOOD BY MANUAL COUNT 21 % Normal 20-40 [facility] Comment on above: Performed By: #### L [id number], [id number] ####Commercial Account Manager: JAVID LUTHER ([phone])[facility] [place] ([facility])[address] [place] [address] [place] MICROCYTES (PRESENCE) IN BLOOD BY LIGHT MICROSCOPY Slight Abnormal (none) [facility] Comment on above: Performed By: #### L [id number], [id number] ####Commercial Account Manager: JAVID LUTHER ([phone])[facility] [place] ([facility])[address] [place] [address] [place] MONOCYTES (10*3/UL) IN BLOOD BY MANUAL COUNT 0.7 10*3/uL Normal 0.0-0.8 [facility] Comment on above: Performed By: #### L [id number], [id number] ####Commercial Account Manager: JAVID LUTHER ([phone])[facility] [place] ([facility])[address] MONOCYTES TOTAL PER COUNTED LEUKOCYTES BY MANUAL COUNT 7 Normal [facility] Comment on above: Performed By: #### L [id number], [id number] ####Commercial Account Manager: JAVID LUTHER ([phone])[facility] [place] ([facility])[address] [place] [address] [place] MONOCYTES/100 LEUKOCYTES IN BLOOD BY MANUAL COUNT 7 % Normal 2-10 [facility] Comment on above: Performed By: #### L [id number], [id number] ####Commercial Account Manager: JAVID LUTHER ([phone])[facility] [place] ([facility])[address] [place] [address] [place] NEUTROPHILS (SEGS+BANDS) (10*3/UL) BY MANUAL COUNT 6.3 10*3/uL Normal 1.8-7.0 [facility] Comment on above: Performed By: #### L [id number], [id number] ####Commercial Account Manager: JAVID LUTHER ([phone])[facility] [place] ([facility])[address] [place] [address] [place] NEUTROPHILS TOTAL PER COUNTED LEUKOCYTES BY MANUAL COUNT 67 Normal [facility] Comment on above: Performed By: #### L [id number], [id number] ####Commercial Account Manager: JAVID LUTHER ([phone])[facility] [place] ([facility])[address] [place] [address] [place] OVALOCYTES PRESENCE IN BLOOD BY LIGHT MICROSCOPY Slight Abnormal (none) [facility] Comment on above: Performed By: #### L [id number], [id number] ####Commercial Account Manager: JAVID LUTHER ([phone])[facility] ([facility])[address] PLATELET MORPHOLOGY IN BLOOD Normal Normal [facility] Comment on above: Performed By: #### L [id number], [id number] ####Commercial Account Manager: JAVID LUTHER ([phone])[facility] ([facility])[address] SEGEMENTED NEUTROPHILS/100 LEUKOCYTES BY MANUAL COUNT 67 % Normal 40-80 [facility] Comment on above: Performed By: #### L [id number], [id number] ####Commercial Account Manager: JAVID LUTHER ([phone])[facility] (SBHLAB)[address] Manual differential performe d Ql (Bld)Ordered By: Conner Cardenas on 09-09-2023 Anisocytosis Ql (Bld) Moderate Abnormal (none) [facility] [employer] Basophils (Bld) [#/Vol] 0.1 10*3/uL 0.0 - 0.2 10*3/uL [facility] [employer] Basophils Manual 1 [facility] [employer] Basophils/100 WBC (Bld) 1 % 0 - 2 % [facility] [employer] Cells Counted Total (Bld) [#] 100 {cells} [facility] [employer] Differential Method Automated differenti al reported after manual slide review [facility] Eosinophils (Bld) [#/Vol] 0.4 10*3/uL 0.0 - 0.5 10*3/uL [facility] [employer] Eosinophils Manual 4 High 0 - 1 [facility] [employer] Eosinophils/100 WBC (Bld) 4 % 1 - 6 % [facility] Hypochromia Ql (Bld) Slight Abnormal (none) [facility] Interpretation and review of laboratory results Abnormal [facility] Leukocyte morphology finding Nom (Bld) Normal [facility] Lymphocytes (Bld) [#/Vol] 2.0 10*3/uL 1.0 - 4.3 10*3/uL [facility] [employer] Lymphocytes Manual 21 [facility] Lymphocytes/100 WBC (Bld) 21 % 20 - 40 % [facility] Microcytes Ql (Bld) Slight Abnormal (none) [facility] Monocytes (Bld) [#/Vol] 0.7 10*3/uL 0.0 - 0.8 10*3/uL [facility] Monocytes Manual 7 [facility] Monocytes/100 WBC (Bld) 7 % 2 - 10 % [facility] Neutrophils (Bld) [#/Vol] 6.3 10*3/uL 1.8 - 7.0 10*3/uL [facility] Neutrophils Manual 67 [facility] Ovalocytes LM Ql (Bld) Slight Abnormal (none) [facility] Platelet morphology finding Nom (Bld) Normal [facility] Segmented neutrophils/100 WBC (Bld) 67 % 40 - 80 % [facility] WBC corrected for nucl RBC (Bld) [#/Vol] 9.4 10*3/uL 3.6 - 10.7 10*3/uL [facility] No Panel Informationon 09-09 [facility] P [place] 55 degrees [facility] [place] Interval 157 ms [facility] QRS [place] -7 degrees [facility] QRSD Interval 81 ms [facility] QT Interval 455 ms [facility] QTC Interval 501 ms [facility] T Wave [place] 28 degrees [facility] Sinus rhythm Low voltage, precordial leads Borderline prolonged QT interval Electronically Signed On 09-09-2023 19:59:30 EST by Lenny Grajeda MD - 09/09/2023 IMPRESSION: Sinus rhythm Low voltage, precordial leads Borderline prolonged QT interval Electronically Signed On 09-09-2023 19:59:30 EST by Lenny Macdonald [facility] Interpretation and review of laboratory results Abnormal [facility] CHEMISTRY SPECIMEN SLIGHTLY HEMOLYZED; INTERPRET WITH CAUTION! [facility] Interpretation and review of laboratory results Abnormal [facility] SARS-COV-2, FLU A/B, AND [...] In compliance with this authorization, please visit www.fda.gov/media/91997 5/download or www.fda.gov/media/82301 6/download to access the applicable information sheets. Normal [facility] Comment on above: Performed By: #### L [id number] #### Commercial Account Manager: JAVID LUTHER ([phone]) [facility] ([facility]) [address] [place] [address] TROPONIN, WITH SERIAL REFLEX on 09-09-2023 Troponin I.cardiac [Mass/Vol] ng/mL Normal <0.034 [facility] Comment on above: Result Comment: KIKE Cohen COMMENTS: Patients with high levels of Biotin oral intake (ie >5 mg/day) may have falsely decreased Troponin levels. Performed By: #### L [id number], [id number], [id number], [id number] ####Commercial Account Manager: JAVID LUTHER ([phone])[facility] ([facility])[address] [place] [address] Troponin I.cardiac [Mass/Vol ]on 09-09-2023 Interpretation and review of laboratory results Normal [facility] Patients with high levels of Biotin oral intake (ie >5 mg/day) may have falsely decreased Troponin levels. [facility] Interpretation and review of laboratory results Normal [facility] Patients with high levels of Biotin oral intake (ie >5 mg/day) may have falsely decreased Troponin levels. [facility] Urinalysis complete panel (U )on 09-09-2023 Bacteria LM.HPF (Urine sed) [#/Area] Moderate Abnormal Negative /HPF [facility] Bilirubin Ql (U) Negative Negative mg/dL [facility] Clarity (U) Clear Clear [facility] Color (U) Yellow Lt. Yellow [facility] Epithelial cells.squamous LM.HPF (Urine sed) [#/Area] 6-10 Abnormal [facility] Glucose Ql (U) Normal Normal (<70) mg/dL [facility] Hemoglobin Ql (U) 0.2 mg/dL Abnormal Negative [facility] Interpretation and review of laboratory results Abnormal [facility] Ketones (U) [Mass/Vol] Negative Negative mg/d L [facility] Leukocyte esterase Test strip Ql (U) Negative Negative Joo/uL [facility] Mucus LM.HPF (Urine sed) [#/Area] Few Negative /LPF [facility] Nitrite Ql (U) Negative Negative [facility] Non-Squamous Epithalial Cells, Urine 0-2 Abnormal Negative /HPF [facility] pH (U) 6.5 [pH] 5.0 - 8.0 pH [facility] Protein (U) [Mass/Vol] Negative Negative mg/d L [facility] RBC LM.HPF (Urine sed) [#/Area] 3-5 Abnormal [facility] Specific gravity (U) [Rel density] 1.010 1.005 - 1.030 [facility] Urobilinogen (U) [Mass/Vol] Normal Normal (0-1) mg/dL [facility] WBC LM.HPF (Urine sed) [#/Area] 0-2 [facility] Vital signson 09-09-2023 Heart rate 73 /min bpm [facility] XR Chest Single viewon 09-09 1. No acute finding. Report Dictated on Electronically Signed By: James Will MD Electronically Signed Date/Time: 09/09/2023 6:48 PM [facility] [employer] [facility] Patient Name: CAROLINA HIGHTOWER : 1975 Exam Date/Time: 09/09/2023 18:44 Procedure: XR CHEST 1 VIEW Ordering Provider: HARRIS KASSIDY Reason For Exam: shortness of breath SINGLE FRONTAL VIEW OF THE CHEST CLINICAL INDICATION: shortness of breath TECHNIQUE: Single frontal view of the chest COMPARISON: None FINDINGS: Lungs show no significant consolidation. No pleural effusion or pneumothorax. No vascular congestion. Heart size normal. [facility] [employer] [facility] James Will MD - 09/09/2023 Patient Name: CAROLINA [...] Electronically Signed Date/Time: 09/09/2023 6:48 PM EST [facility] [employer] Radiology Study observation (narrative) [facility] [employer] XR Chest Single viewOrdered By: James Will on 09-09-2023 [facility] [employer] Work Phone: Absolute lymphocyte countOrd ered By: Darius Rosales on 08-22-2023 Lymphocytes Auto (Unsp spec) [#/Vol] 1.92 10*3/uL 0.83-4.[address] [facility] Basophil percentageOrdered B y: Darius Rosales on 08-22-2023 Ammonia (P) [Moles/Vol] 76.0 umol/L - [facility] Basophil percentage 76.0 umol/L - [facility] Basophil percentage 124 mg/dL 74-106 [facility] Basophil percentage 6.7 g/dL 6.4-8.2 [facility] Basophil percentage 1.80 mg/dL 0.20-1.00 [facility] Basophil percentage 139 mmol/L 136-145 [facility] Basophil percentage 3.4 mmol/L 3.5-5.1 [facility] Basophil percentage 110 mmol/L 98-107 [facility] Basophils (Bld) [#/Vol] 6.5 10*3/uL 4.4-11.[address] [facility] Basophils (Bld) [#/Vol] 3.6 10*3/uL 2.0-7.[address] [facility] Basophils/100 WBC (Bld) 0.9 % 0-[address] [facility] Basophils/100 WBC (Bld) 54.4 % 47-[address] [facility] Basophils/100 WBC (Bld) 4.1 % 0-[address] [facility] Bilirubin [Mass/Vol] 1.80 mg/dL 0.20-1.00 [facility] Comment on above: For patients on eltr ombopag therapy, use of [employer] [place] TBIL is not recommended. Chloride [Moles/Vol] 110 mmol/L 98-107 [facility] Eosinophils/100 WBC (Bld) 4.1 % 0-[address] [facility] Glucose [Mass/Vol] 124 mg/dL 74-106 [facility] Comment on above: Fasting Glucose resu lt from 100 to 125 mg/dL suggests IMPAIRED HOMEOSTASIS per A.D.A. criteria. Neutrophils (Bld) [#/Vol] 3.6 10*3/uL 2.0-7.[address] [facility] Neutrophils/100 WBC (Bld) 54.4 % 47-[address] [facility] Potassium [Moles/Vol] 3.4 mmol/L 3.5-5.1 [facility] Protein [Mass/Vol] 6.7 g/dL 6.4-8.2 [facility] Sodium [Moles/Vol] 139 mmol/L 136-145 [facility] WBC (Bld) [#/Vol] 6.5 10*3/uL 4.4-11.0 [facility] Beta hCG serum qualOrdered B y: Darius Rosales on 08-22-2023 Beta HCG ( test) Ql Negative [facility] Blood erythrocytes count (nu mber/volume)Ordered By: Darius Rosales on 08-22-2023 RBC (Bld) [#/Vol] 4.46 10*6/uL 4.2-5.4 [facility] Blood hemoglobin measurement (mass/volume)Ordered By: Darius Rosales on 08-22-2023 Hemoglobin (Bld) [Mass/Vol] 10.2 g/dL 12.0-15.[address] [facility] Blood lymphocytes/100 leukoc ytesOrdered By: Darius Rosales on 08-22-2023 Lymphocytes/100 WBC (Bld) 29.4 % 19-[address] [facility] Blood monocytes/100 leukocyt esOrdered By: Darius Rosales on 08-22-2023 Monocytes/100 WBC (Bld) 11.0 % 0-[address] [facility] Blood platelet adequacy dete ction by light microscopyOrdered By: Darius Rosales on 08-22-2023 Platelets LM Ql (Bld) MOD DEC ADEQ [facility] COVID-19 virus antigen assay Ordered By: Darius Rosales on 08-22-2023 SARS-CoV-2 (COVID-19) Ag IA.rapid Ql (Resp) [facility] SARS-CoV-2 (COVID-19) Ag IA.rapid Ql (Resp) [facility] Determination of erythrocyte mean corpuscular volume (MCV)Ordered By: Dairus Rosales on 08-22-2023 MCV (RBC) [Entitic vol] 75.8 fL 81-[address] [facility] Hematocrit Auto (Bld) [Volum e fraction]Ordered By: Darius Rosales on 08-22-2023 Hematocrit (Bld) [Volume fraction] 33.8 % 37-[address] [facility] Laboratory - Chemistry and C hemistry - challengeOrdered By: Darius Rosales on 08-22-2023 ALP [Catalytic activity/Vol] 156 U/L 45-[address] [facility] ALT [Catalytic activity/Vol] 66 U/L 13-[address] [facility] CO2 [Moles/Vol] 25.0 mmol/L 21.0-32.[address] [facility] Globulin (S) [Mass/Vol] 3.7 g/dL 2.2-4.[address] [facility] Urea nitrogen/Creatinine [Mass ratio] 11.9 mg/mg 10-[address] [facility] Laboratory - Drug toxicology Ordered By: Darius Rosales on 08-22-2023 Amphetamines Ql (U) Positive <1000 ng/mL [facility] Benzodiazepines Ql (U) Negative < 200 ng/mL [facility] Cannabinoids Screen Ql (U) Positive < 50 ng/mL [facility] Cocaine Ql (U) Negative < 300 ng/mL [facility] Opiates Ql (U) Negative < 300 ng/mL [facility] Laboratory - Hematology and Cell countsOrdered By: Darius Rosales on 08-22-2023 Anisocytosis Ql (Bld) 1+ [facility] Erythrocyte distribution width (RBC) [Entitic vol] 56.9 fL 35.1-43.9 [facility] Erythrocyte distribution width (RBC) [Ratio] 20.7 % 11.6-14.[address] [facility] Immature granulocytes/100 WBC (Bld) 0.200 % 0.0-0.[address] [facility] Comment on above: IG% - Immature Granu locytes (promyelocytes, myelocytes and metamyelocytes) > 1% indicates that a LEFT SHIFT is Present. MCH (RBC) [Entitic mass] 22.9 pg 27.0-32.[address] [facility] Nucleated RBC/100 WBC (Bld) [Ratio] 0 % 0-[address] [facility] MCHC Auto (RBC) [Mass/Vol]Or dered By: Darius Rosales on 08-22-2023 MCHC (RBC) [Mass/Vol] 30.2 g/dL 32-36 [facility] No Panel InformationOrdered By: Darius Rosales on 08-22-2023 Estimated Creatinine Clearance Calc 58.50 ml/min [facility] Estimated GFR (MDRD) Amer 83 mL/min >[address] [facility] Comment on above: GFR Calc Estimated GFR (MDRD) Non-Af Amer 68 mL/min >[address] [facility] Comment on above: Non- GFR Calc Ethyl Alcohol Level < 3.0 mg/dL [facility] Comment on above: The serum:whole bloo d ethanol ratio is approximately 1.14and varies slightly with hematocrit. Medical Alcohol reference interval and critical value innon-tolerant individuals; 50 - 100 Impairment 100 Intoxication 100 - 250 Severe Poisoning 250 - 400 Deep/possible fatal coma 22.9 pg 27.0-32.[address] [facility] 20.7 % 11.6-14.[address] [facility] 56.9 fl 35.1-43.[address] [facility] 0.200 % 0.0-0.[address] [facility] 0 % 0-[address] [facility] 1+ [facility] 68 mL/min >[address] [facility] 83 mL/min >[address] [facility] 58.50 ml/min [facility] 11.9 RATIO 10-[address] [facility] 3.7 g/dL 2.2-4.[address] [facility] 156 U/L 45-[address] [facility] 66 U/L 13-[address] [facility] 25.0 mmol/L 21.0-32.[address] [facility] < 3.0 mg/dL [facility] MDMA (Ecstasy) Screen Positive < 500 ng/mL [facility] Urine Barbiturates Screen Negative < 200 ng/mL [facility] Urine Drug Screen Comment [facility] Comment on above: CONFIRMATORY TESTING FOR ALL POSITIVE URINE DRUG SCREENRESULTS WILL ONLY BE SENT OUT UPON PHYSICIAN ORDER. VISTA Urine Drug Screen methods provide only preliminaryanalytical test results. A more specific alternate chemicalmethod must be used in order to obtain a confirmedanalytical result. Gas chromatography/mass spectrometery(GC/MS) is the preferred confirmatory method. Clinicalconsideration and professional judgement should be appliedto any drug of abuse test result, particularly whenpreliminary positive results are used. URINE TCA TESTING MUST BE ORDERED SEPARATELY. USE TESTMNEMONIC: [facility] Urine Methadone Screen Negative < 300 ng/mL [facility] Positive < 50 ng/mL [facility] Negative < 300 ng/mL [facility] Platelets bldOrdered By: Leland Rosales on 08-22-2023 Platelets (Bld) [#/Vol] 74 10*3/uL 150-[address] [facility] Serum or plasma albumin latrice urement (mass/volume)Ordered By: Darius Rosales on 08-22-2023 Albumin [Mass/Vol] 3.0 g/dL 3.2-5.0 [facility] Serum or plasma albumin/glob ulin mass ratioOrdered By: Darius Rosales on 08-22-2023 Albumin/Globulin [Mass ratio] 0.8 {ratio} 0.9-2.[address] [facility] Serum or plasma calcium latrice urement (mass/volume)Ordered By: Darius Rosales on 08-22-2023 Calcium [Mass/Vol] 8.7 mg/dL 8.5-10.1 [facility] Serum or plasma creatinine m easurement (mass/volume)Ordered By: Darius Rosales on 08-22-2023 Creatinine [Mass/Vol] 0.92 mg/dL 0.55-1.02 [facility] Comment on above: The validity of the calculated GFR & GFRAA in patients over 70 years has not been determined. Clinical correlation is essential. Serum or plasma urea nitroge n measurement (mass/volume)Ordered By: Darius Rosales on 08-22-2023 Urea nitrogen [Mass/Vol] 11 mg/dL 7-[address] [facility] Thin prep Papanicolaou smear with manual screeningOrdered By: Darius Rosales on 08-22-2023 Thin prep Papanicolaou smear with manual screening 123 U/L 15-[address] [facility] Thin prep Papanicolaou smear with manual screening 4 5-[address] [facility] Urine phencyclidine (PCP) de tectionOrdered By: Darius Rosales on 08-22-2023 Phencyclidine Ql (U) Negative < 25 ng/mL [facility] Anaerobic cultureOrdered By: Son Adams on 08-15-2023 Bacteria identified Anaer cx Nom (Unsp spec) No growth in [address] [facility] Bacteria identified Anaer cx Nom (Unsp spec) No growth in [address] [facility] Bacterial body fluid culture Ordered By: Son Adams on 08-15-2023 Bacteria identified Cx Nom (Body fld) No growth aerobically. [facility] Bacteria identified Cx Nom (Body fld) No growth aerobically. [facility] Body fluid appearanceOrdered By: Son Adams on 08-15-2023 Appearance (Body fld) CLEAR [facility] Body fluid color determinati onOrdered By: Son Adams on 08-15-2023 Color (Body fld) LT YEL [facility] Body fluid lactate dehydroge nase measurement (enzymatic activity/volume) by pyruvateOrdered By: Son Adams on 08-15-2023 LDH Pyruvate to lactate reaction (Body fld) [Catalytic activity/Vol] 41 Units/L Not Establ. [facility] Body fluid leukocytes count (number/volume)Ordered By: Son Adams on 08-15-2023 WBC (Body fld) [#/Vol] 0.155 10*3/uL [facility] Body fluid lymphocytes/100 l eukocytesOrdered By: Son Adams on 08-15-2023 Lymphocytes/100 WBC (Body fld) 51 % [facility] Body fluid macrophage countO rdered By: Son Adams on 08-15-2023 Macrophages (Body fld) [#/Vol] 5 % [facility] Body fluid protein measureme nt (mass/volume)Ordered By: Son Adams on 08-15-2023 Protein (Body fld) [Mass/Vol] 0.8 g/dL Not Establ. [facility] Body fluid segmented neutrop hils count (number/volume)Ordered By: Son Adams on 08-15-2023 Segmented neutrophils (Body fld) [#/Vol] 4 % [facility] Cytology report of Body flui d Cyto stainOrdered By: Son Adams on 08-15-2023 Cytology report Cyto stain Doc (Body fld) SEE PATHOLOGY REPORT [facility] Comment on above: Specimen submitted t o Anatomical Pathology Department for testing. Gram stain for investigation of transfusion reactionOrdered By: Son Adams on 08-15-2023 Microscopic observation Gram stain Nom (Unsp spec) [facility] Microscopic observation Gram stain Nom (Unsp spec) [facility] Mononuclear cells Auto (Body fld) [#/Vol]Ordered By: Son Adams on 08-15-2023 Mononuclear cells (Body fld) [#/Vol] 0.149 10*3/uL [facility] No Panel InformationOrdered By: Son Adams on 08-15-2023 Body Fluid Comment 2 SEE COMMENT [facility] Body Fluid Glucose 101 mg/dL 40-70 [facility] Body Fluid Mononuclear WBCs (%) 96.1 % [facility] Body Fluid Pathologist Comment Reviewed [facility] Comment on above: Previous reported re sult: May follow Edited by: RGOSHIRA on 08/17/23:1500Negative for malignant cells.Lonnie Nelson D.O. 08/17/23 AMENDED REPORT 08/17/23 1500 PATH COMM/BF previously reported as: May follow Body Fluid Polynuclear WBCs (#) 0.006 10^3/uL [facility] Body Fluid Polynuclear WBCs (%) 3.9 % [facility] Body Fluid RBC 185 /mm3 [facility] 185 /mm3 [facility] 3.9 % [facility] 96.1 % [facility] 0.006 10^3/uL [facility] Reviewed [facility] SEE COMMENT [facility] 101 mg/dL 40-[address] [facility] Specimen source identificati on of body fluidOrdered By: Son Adams on 08-15-2023 Specimen source Nom (Body fld) OTHER [facility] Comment on above: PARACENTESIS. Thin prep Papanicolaou smear with manual screeningOrdered By: Son Adams on 08-15-2023 Thin prep Papanicolaou smear with manual screening 37 % [facility] Thin prep Papanicolaou smear with manual screening 3 % [facility] Total cell countOrdered By: Son Adams on 08-15-2023 Cells counted Molgen (Bld/Tiss) [#] 0.228 10^3/ul 0.000-0.[address] [facility] Comment on above: This is the Total Nu mber of Nucleated Cell Types in the Body Fluid. Anaerobic cultureOrdered By: Gurinder Mittal on 07-22-2023 Bacteria identified Anaer cx Nom (Unsp spec) No growth in [address] [facility] Bacterial body fluid culture Ordered By: Gurinder Mittal on 07-22-2023 Bacteria identified Cx Nom (Body fld) Culture exhibits no growth. [facility] Gram stain for investigation of transfusion reactionOrdered By: Gurinder Mittal on 07-22-2023 Microscopic observation Gram stain Nom (Unsp spec) [facility] Absolute lymphocyte countOrd ered By: Gurinder Mittal on 07-21-2023 Lymphocytes Auto (Unsp spec) [#/Vol] 1.71 10*3/uL 0.83-4.[address] [facility] Basophil percentageOrdered B y: Gurinder Mittal on 07-21-2023 Basophil percentage 155 mg/dL 74-106 [facility] Basophil percentage 5.8 g/dL 6.4-8.2 [facility] Basophil percentage 1.20 mg/dL 0.20-1.00 [facility] Basophil percentage 140 mmol/L 136-145 [facility] Basophil percentage 3.3 mmol/L 3.5-5.1 [facility] Basophil percentage 112 mmol/L 98-107 [facility] Basophils (Bld) [#/Vol] 5.4 10*3/uL 4.4-11.[address] [facility] Basophils (Bld) [#/Vol] 2.8 10*3/uL 2.0-7.[address] [facility] Basophils/100 WBC (Bld) 0.9 % 0-[address] [facility] Basophils/100 WBC (Bld) 52.2 % 47-[address] [facility] Basophils/100 WBC (Bld) 4.3 % 0-[address] [facility] Bilirubin [Mass/Vol] 1.20 mg/dL 0.20-1.00 [facility] Comment on above: For patients on eltr ombopag therapy, use of Dimension [place] TBIL is not recommended. Chloride [Moles/Vol] 112 mmol/L 98-107 [facility] Eosinophils/100 WBC (Bld) 4.3 % 0-[address] [facility] Glucose [Mass/Vol] 155 mg/dL 74-106 [facility] Comment on above: Fasting Glucose resu lt greater than or equal to 126 mg/dL suggests DIABETES MELLITUS per A.D.A. criteria. Neutrophils (Bld) [#/Vol] 2.8 10*3/uL 2.0-7.[address] [facility] Neutrophils/100 WBC (Bld) 52.2 % 47-[address] [facility] Potassium [Moles/Vol] 3.3 mmol/L 3.5-5.1 [facility] Protein [Mass/Vol] 5.8 g/dL 6.4-8.2 [facility] Sodium [Moles/Vol] 140 mmol/L 136-145 [facility] WBC (Bld) [#/Vol] 5.4 10*3/uL 4.4-11.0 [facility] Blood erythrocytes count (nu mber/volume)Ordered By: Gurinder Mittal on 07-21-2023 RBC (Bld) [#/Vol] 3.88 10*6/uL 4.2-5.4 [facility] Blood hemoglobin measurement (mass/volume)Ordered By: Gurinder Mittal on 07-21-2023 Hemoglobin (Bld) [Mass/Vol] 8.7 g/dL 12.0-15.[address] [facility] Blood lymphocytes/100 leukoc ytesOrdered By: Gurinder Mittal on 07-21-2023 Lymphocytes/100 WBC (Bld) 31.8 % 19-[address] [facility] Blood manual differential co mment interpretation (narrative result)Ordered By: Gurinder Mittal on 07-21-2023 Manual differential comment Eliezer (Bld) [Interp] SCANNED [facility] Blood monocytes/100 leukocyt esOrdered By: Gurinder Mittal on 07-21-2023 Monocytes/100 WBC (Bld) 10.6 % 0-[address] [facility] Blood platelet adequacy dete ction by light microscopyOrdered By: Gurinder Mittal on 07-21-2023 Platelets LM Ql (Bld) MKD DEC ADEQ [facility] Body fluid appearanceOrdered By: Gurinder Mittal on 07-21-2023 Appearance (Body fld) CLEAR [facility] Body fluid color determinati onOrdered By: Gurinder Mittal on 07-21-2023 Color (Body fld) YELLOW [facility] Body fluid leukocytes count (number/volume)Ordered By: Gurinder Mittal on 07-21-2023 WBC (Body fld) [#/Vol] 0.147 10*3/uL [facility] Body fluid lymphocytes/100 l eukocytesOrdered By: Gurinder Mittal on 07-21-2023 Lymphocytes/100 WBC (Body fld) 48 % [facility] Body fluid macrophage countO rdered By: Gurinder Mittal on 07-21-2023 Macrophages (Body fld) [#/Vol] 11 % [facility] Body fluid mesothelial cell percentageOrdered By: Gurinder Mittal on 07-21-2023 Mesothelial cells/100 WBC (Body fld) 16 % [facility] Body fluid segmented neutrop hils count (number/volume)Ordered By: Gurinder Mittal on 07-21-2023 Segmented neutrophils (Body fld) [#/Vol] 6 % [facility] Determination of erythrocyte mean corpuscular volume (MCV)Ordered By: Gurinder Mittal on 07-21-2023 MCV (RBC) [Entitic vol] 77.3 fL 81-[address] [facility] Hematocrit Auto (Bld) [Volum e fraction]Ordered By: Gurinder Mittal on 07-21-2023 Hematocrit (Bld) [Volume fraction] 30.0 % 37-[address] [facility] Hypochromatic red blood cell detectionOrdered By: Gurinder Mittal on 07-21-2023 Hypochromia Ql (Bld) 1+ [facility] Laboratory - Chemistry and C hemistry - challengeOrdered By: Gurinder Mittal on 07-21-2023 ALP [Catalytic activity/Vol] 141 U/L 45-[address] [facility] ALT [Catalytic activity/Vol] 69 U/L 13-[address] [facility] CO2 [Moles/Vol] 23.0 mmol/L 21.0-32.[address] [facility] Globulin (S) [Mass/Vol] 3.4 g/dL 2.2-4.[address] [facility] Urea nitrogen/Creatinine [Mass ratio] 8.3 mg/mg 10-[address] [facility] Laboratory - Hematology and Cell countsOrdered By: Gurinder Mittal on 07-21-2023 Anisocytosis Ql (Bld) 2+ [facility] Erythrocyte distribution width (RBC) [Entitic vol] 60.9 fL 35.1-43.[address] [facility] Erythrocyte distribution width (RBC) [Ratio] 21.8 % 11.6-14.[address] [facility] Immature granulocytes/100 WBC (Bld) 0.200 % 0.0-0.[address] [facility] Comment on above: IG% - Immature Granu locytes (promyelocytes, myelocytes and metamyelocytes) > 1% indicates that a LEFT SHIFT is Present. MCH (RBC) [Entitic mass] 22.4 pg 27.0-32.[address] [facility] Nucleated RBC/100 WBC (Bld) [Ratio] 0 % 0-[address] [facility] MCHC Auto (RBC) [Mass/Vol]Or dered By: Gurinder Mittal on 07-21-2023 MCHC (RBC) [Mass/Vol] 29.0 g/dL 32-36 [facility] Comment on above: Delta: 30.7 on 07/20-1834 Macrocytes detectionOrdered By: Gurinder Mittal on 07-21-2023 Macrocytes Ql (Bld) 1+ [facility] Mononuclear cells Auto (Body fld) [#/Vol]Ordered By: Gurinder Mittal on 07-21-2023 Mononuclear cells (Body fld) [#/Vol] 0.137 10*3/uL [facility] No Panel InformationOrdered By: Gurinder Mittal on 07-21-2023 Body Fluid Comment 2 SEE COMMENT [facility] Body Fluid Mononuclear WBCs (%) 93.2 % [facility] Body Fluid Pathologist Comment May follow [facility] Body Fluid Pathologist Comment Reviewed [facility] Comment on above: Previous reported re sult: May follow Edited by: RGOOD on 07/22/23:0952Negative for malignant cells.Please also refer to patient's cytology report [id number].Wilder Godfrey M.D. 07/22/23 AMENDED REPORT 07/22/23 0952 PATH COMM/BF previously reported as: May follow Body Fluid Polynuclear WBCs (#) 0.010 10^3/uL [facility] Body Fluid Polynuclear WBCs (%) 6.8 % [facility] Body Fluid RBC 100 /mm3 [facility] 100 /mm3 [facility] 6.8 % [facility] 93.2 % [facility] 0.010 10^3/uL [facility] Reviewed [facility] SEE COMMENT [facility] Estimated Creatinine Clearance Calc 56.07 ml/min [facility] Estimated GFR (MDRD) Amer 79 mL/min >[address] [facility] Comment on above: GFR Calc Estimated GFR (MDRD) Non-Af Amer 66 mL/min >[address] [facility] Comment on above: Non- GFR Calc 22.4 pg 27.0-32.[address] [facility] 21.8 % 11.6-14.[address] [facility] 60.9 fl 35.1-43.[address] [facility] 0.200 % 0.0-0.[address] [facility] 0 % 0-[address] [facility] 2+ [facility] 66 mL/min >[address] [facility] 79 mL/min >[address] [facility] 56.07 ml/min [facility] 8.3 RATIO 10-[address] [facility] 3.4 g/dL 2.2-4.[address] [facility] 141 U/L 45-[address] [facility] 69 U/L 13-[address] [facility] 23.0 mmol/L 21.0-32.[address] [facility] Platelets bldOrdered By: Luis Mittal on 07-21-2023 Platelets (Bld) [#/Vol] 55 10*3/uL 150-[address] [facility] Serum or plasma albumin latrice urement (mass/volume)Ordered By: Gurinder Mittal on 07-21-2023 Albumin [Mass/Vol] 2.4 g/dL 3.2-5.0 [facility] Serum or plasma albumin/glob ulin mass ratioOrdered By: Gurinder Mittal on 07-21-2023 Albumin/Globulin [Mass ratio] 0.7 {ratio} 0.9-2.[address] [facility] Serum or plasma calcium latrice urement (mass/volume)Ordered By: Gurinder Mittal on 07-21-2023 Calcium [Mass/Vol] 8.3 mg/dL 8.5-10.1 [facility] Serum or plasma creatinine m easurement (mass/volume)Ordered By: Gurinder Mittal on 07-21-2023 Creatinine [Mass/Vol] 0.96 mg/dL 0.55-1.02 [facility] Comment on above: The validity of the calculated GFR & GFRAA in patients over 70 years has not been determined. Clinical correlation is essential. Serum or plasma urea nitroge n measurement (mass/volume)Ordered By: Gurinder Mittal on 07-21-2023 Urea nitrogen [Mass/Vol] 8 mg/dL 7-[address] [facility] Specimen source identificati on of body fluidOrdered By: Gurinder Mittal on 07-21-2023 Specimen source Nom (Body fld) ASCITES FLUID [facility] Thin prep Papanicolaou smear with manual screeningOrdered By: Gurinder Mittal on 07-21-2023 Thin prep Papanicolaou smear with manual screening 19 % [facility] Thin prep Papanicolaou smear with manual screening 1+ [facility] Thin prep Papanicolaou smear with manual screening 116 U/L 15-[address] [facility] Thin prep Papanicolaou smear with manual screening 5 5-[address] [facility] Total cell countOrdered By: Gurinder Mittal on 07-21-2023 Cells counted Molgen (Bld/Tiss) [#] 0.210 10^3/ul 0.000-0.[address] [facility] Comment on above: This is the Total Nu mber of Nucleated Cell Types in the Body Fluid. Absolute lymphocyte countOrd ered By: Darius Rosales on 07-20-2023 Lymphocytes Auto (Unsp spec) [#/Vol] 1.87 10*3/uL 0.83-4.[address] [facility] Basophil percentageOrdered B y: Darius Rosales on 07-20-2023 Basophils/100 WBC (Bld) 0.8 % 0-[address] [facility] Bilirubin [Mass/Vol] 1.70 mg/dL 0.20-1.00 [facility] Comment on above: For patients on eltr ombopag therapy, use of Dimension [place] TBIL is not recommended. Chloride [Moles/Vol] 112 mmol/L 98-107 [facility] Eosinophils/100 WBC (Bld) 4.2 % 0-[address] [facility] Glucose [Mass/Vol] 86 mg/dL 74-106 [facility] Neutrophils (Bld) [#/Vol] 3.5 10*3/uL 2.0-7.[address] [facility] Neutrophils/100 WBC (Bld) 55.7 % 47-[address] [facility] Potassium [Moles/Vol] 3.7 mmol/L 3.5-5.1 [facility] Protein [Mass/Vol] 6.4 g/dL 6.4-8.2 [facility] Sodium [Moles/Vol] 142 mmol/L 136-145 [facility] WBC (Bld) [#/Vol] 6.2 10*3/uL 4.4-11.0 [facility] Blood erythrocytes count (nu mber/volume)Ordered By: Darius Rosales on 07-20-2023 RBC (Bld) [#/Vol] 4.19 10*6/uL 4.2-5.4 [facility] Blood hemoglobin measurement (mass/volume)Ordered By: Darius Rosales on 07-20-2023 Hemoglobin (Bld) [Mass/Vol] 9.7 g/dL 12.0-15.[address] [facility] Blood lymphocytes/100 leukoc ytesOrdered By: Darius Rosales on 07-20-2023 Lymphocytes/100 WBC (Bld) 30.0 % 19-[address] [facility] Blood monocytes/100 leukocyt esOrdered By: Darius Rosales on 07-20-2023 Monocytes/100 WBC (Bld) 9.1 % 0-[address] [facility] Blood platelet adequacy dete ction by light microscopyOrdered By: Darius Rosales on 07-20-2023 Platelets LM Ql (Bld) MOD DEC ADEQ [facility] Blood platelet mean volumeOr dered By: Darius Rosales on 07-20-2023 Platelet mean volume (Bld) [Entitic vol] TNP [facility] Comment on above: Test not performed Blood platelet morphology de termination (nominal result)Ordered By: Darius Rosales on 07-20-2023 Platelet morphology finding Nom (Bld) LARGE [facility] Determination of erythrocyte mean corpuscular volume (MCV)Ordered By: Darius Rosales on 07-20-2023 MCV (RBC) [Entitic vol] 75.4 fL 81-[address] [facility] Direct bilirubinOrdered By: Darius Rosales on 07-20-2023 Bilirubin.direct [Mass/Vol] 0.87 mg/dL 0.00-0.[address] [facility] Hematocrit Auto (Bld) [Volum e fraction]Ordered By: Darius Rosales on 07-20-2023 Hematocrit (Bld) [Volume fraction] 31.6 % 37-[address] [facility] Hypochromatic red blood cell detectionOrdered By: Darius Rosales on 07-20-2023 Hypochromia Ql (Bld) RARE [facility] INR in Blood by Coagulation assayOrdered By: Darius Rosales on 07-20-2023 INR Coag (Bld) [Relative time] 1.7 {INR} [facility] Laboratory - Chemistry and C hemistry - challengeOrdered By: Darius Rosales on 07-20-2023 ALP [Catalytic activity/Vol] 156 U/L 45-[address] [facility] ALT [Catalytic activity/Vol] 76 U/L 13-[address] [facility] CO2 [Moles/Vol] 26.0 mmol/L 21.0-32.[address] [facility] Globulin (S) [Mass/Vol] 3.6 g/dL 2.2-4.[address] [facility] Lipase [Catalytic activity/Vol] 49 U/L - [facility] Comment on above: Please note:LIPASE r evised reference range effective 23. New Lipase methodology. Expected to produce lower values than the previous assay method. NEW Reference Range: 13 - 75 U/L Urea nitrogen/Creatinine [Mass ratio] 9.6 mg/mg 07-[address] [facility] Laboratory - CoagulationOrde red By: Darius Rosales on 07-20-2023 PT Coag (PPP) [Time] 19.6 s 11.7-14.9 [facility] - Hematology and Cell countsOrdered By: Darius Rosales on 07-20-2023 Anisocytosis Ql (Bld) 1+ [facility] Erythrocyte distribution width (RBC) [Entitic vol] 59.2 fL 35.1-43.[address] [facility] Erythrocyte distribution width (RBC) [Ratio] 21.8 % 11.6-14.[address] [facility] Immature granulocytes/100 WBC (Bld) 0.200 % 0.0-0.[address] [facility] Comment on above: IG% - Immature Granu locytes (promyelocytes, myelocytes and metamyelocytes) > 1% indicates that a LEFT SHIFT is Present. MCH (RBC) [Entitic mass] 23.2 pg 27.0-32.[address] [facility] Nucleated RBC/100 WBC (Bld) [Ratio] 0 % 0-[address] [facility] MCHC Auto (RBC) [Mass/Vol]Or dered By: Darius Rosales on 07-20-2023 MCHC (RBC) [Mass/Vol] 30.7 g/dL 32-36 [facility] No Panel InformationOrdered By: Darius Rosales on 07-20-2023 Estimated Creatinine Clearance Calc 57.26 ml/min [facility] Estimated GFR (MDRD) Amer 82 mL/min >[address] [facility] Comment on above: GFR Calc Estimated GFR (MDRD) Non-Af Amer 68 mL/min >[address] [facility] Comment on above: Non- GFR Calc 19.6 SECONDS 11.7-14.[address] [facility] 49 U/L [facility] Ovalocyte detectionOrdered B y: Darius Rosales on 07-20-2023 Ovalocytes LM Ql (Bld) RARE [facility] Platelets bldOrdered By: Leland Rosales on 07-20-2023 Platelets (Bld) [#/Vol] 59 10*3/uL 150-[address] [facility] RBC morphologyOrdered By: Do lucille Rosales on 07-20-2023 RBC morphology finding Nom (Bld) N CHROM NORMAL NORM C&C [facility] Serum or plasma albumin latrice urement (mass/volume)Ordered By: Darius Rosales on 07-20-2023 Albumin [Mass/Vol] 2.8 g/dL 3.2-5.0 [facility] Serum or plasma calcium latrice urement (mass/volume)Ordered By: Darius Rosales on 07-20-2023 Calcium [Mass/Vol] 8.5 mg/dL 8.5-10.1 [facility] Serum or plasma creatinine m easurement (mass/volume)Ordered By: Darius Rosales on 07-20-2023 Creatinine [Mass/Vol] 0.94 mg/dL 0.55-1.02 [facility] Comment on above: The validity of the calculated GFR & GFRAA in patients over 70 years has not been determined. Clinical correlation is essential. Serum or plasma urea nitroge n measurement (mass/volume)Ordered By: Darius Rosales on 07-20-2023 Urea nitrogen [Mass/Vol] 9 mg/dL 7-[address] [facility] Thin prep Papanicolaou smear with manual screeningOrdered By: Darius Rosales on 07-20-2023 Thin prep Papanicolaou smear with manual screening 1+ [facility] Thin prep Papanicolaou smear with manual screening 134 U/L 15-[address] [facility] Thin prep Papanicolaou smear with manual screening 4 5-[address] [facility] Absolute lymphocyte countOrd ered By: ED PROVIDER on 04-25-2023 Lymphocytes Auto (Unsp spec) [#/Vol] 1.45 10*3/uL 0.83-4.[address] [facility] Basophil percentageOrdered B y: Shon Quintero on 04-25-2023 Basophil percentage 0-5 SEEN /hpf 0-5 [facility] Basophil percentageOrdered B y: ED PROVIDER on 04-25-2023 Basophils/100 WBC (Bld) 0.5 % 0-[address] [facility] Bilirubin [Mass/Vol] 1.40 mg/dL 0.20-1.00 [facility] Comment on above: For patients on eltr ombopag therapy, use of Dimension [place] TBIL is not recommended. Chloride [Moles/Vol] 113 mmol/L 98-107 [facility] Eosinophils/100 WBC (Bld) 3.0 % 0-[address] [facility] Glucose [Mass/Vol] 171 mg/dL 74-106 [facility] Comment on above: Fasting Glucose resu lt greater than or equal to 126 mg/dL suggests DIABETES MELLITUS per A.D.A. criteria. Neutrophils (Bld) [#/Vol] 4.0 10*3/uL 2.0-7.[address] [facility] Neutrophils/100 WBC (Bld) 66.1 % 47-[address] [facility] Potassium [Moles/Vol] 3.9 mmol/L 3.5-5.1 [facility] Comment on above: Moderate Hemolysis, Result may be falsely increased. Protein [Mass/Vol] 7.3 g/dL 6.4-8.2 [facility] Sodium [Moles/Vol] 140 mmol/L 136-145 [facility] WBC (Bld) [#/Vol] 6.0 10*3/uL 4.4-11.0 [facility] Bilirubin Test strip Ql (U)O rdered By: Shon Quintero on 04-25-2023 Bilirubin Ql (U) 1 mg/dL Negative [facility] Comment on above: COLOR OF URINE MAY A FFECT DIPSTICK RESULTS. Blood erythrocytes count (nu mber/volume)Ordered By: ED PROVIDER on 04-25-2023 RBC (Bld) [#/Vol] 4.72 10*6/uL 4.2-5.4 [facility] Blood hemoglobin measurement (mass/volume)Ordered By: ED PROVIDER on 04-25-2023 Hemoglobin (Bld) [Mass/Vol] 10.7 g/dL 12.0-15.[address] [facility] Blood lymphocytes/100 leukoc ytesOrdered By: ED PROVIDER on 04-25-2023 Lymphocytes/100 WBC (Bld) 24.1 % 19-[address] [facility] Blood manual differential co mment interpretation (narrative result)Ordered By: Shon Quintero on 04-25-2023 Manual differential comment Eliezer (Bld) [Interp] SCANNED [facility] Blood monocytes/100 leukocyt esOrdered By: ED PROVIDER on 04-25-2023 Monocytes/100 WBC (Bld) 6.0 % 0-[address] [facility] Determination of erythrocyte mean corpuscular volume (MCV)Ordered By: ED PROVIDER on 04-25-2023 MCV (RBC) [Entitic vol] 74.8 fL 81-[address] [facility] Hematocrit Auto (Bld) [Volum e fraction]Ordered By: ED PROVIDER on 04-25-2023 Hematocrit (Bld) [Volume fraction] 35.3 % 37-[address] [facility] INR in Blood by Coagulation assayOrdered By: Shon Quintero on 04-25-2023 INR Coag (Bld) [Relative time] 1.4 {INR} [facility] Ketones Test strip Ql (U)Ord ered By: Shon Quintero on 04-25-2023 Ketones Ql (U) 5 mg/dl Negative [facility] Laboratory - Chemistry and C hemistry - challengeOrdered By: ED PROVIDER on 04-25-2023 ALP [Catalytic activity/Vol] 153 U/L 45-[address] [facility] ALT [Catalytic activity/Vol] 113 U/L 13-[address] [facility] CO2 [Moles/Vol] 23.0 mmol/L 21.0-32.[address] [facility] Globulin (S) [Mass/Vol] 4.3 g/dL 2.2-4.[address] [facility] Urea nitrogen/Creatinine [Mass ratio] 7.4 mg/mg 10-[address] [facility] Laboratory - CoagulationOrde red By: Shon Quintero on 04-25-2023 PT Coag (PPP) [Time] 17.0 s 11.7-14.9 [facility] - Hematology and Cell countsOrdered By: ED PROVIDER on 04-25-2023 Erythrocyte distribution width (RBC) [Entitic vol] 56.5 fL 35.1-43.[address] [facility] Erythrocyte distribution width (RBC) [Ratio] 21.6 % 11.6-14.[address] [facility] Immature granulocytes/100 WBC (Bld) 0.300 % 0.0-0.[address] [facility] Comment on above: IG% - Immature Granu locytes (promyelocytes, myelocytes and metamyelocytes) > 1% indicates that a LEFT SHIFT is Present. MCH (RBC) [Entitic mass] 22.7 pg 27.0-32.[address] [facility] Nucleated RBC/100 WBC (Bld) [Ratio] 0 % 0-[address] [facility] MCHC Auto (RBC) [Mass/Vol]Or dered By: ED PROVIDER on 04-25-2023 MCHC (RBC) [Mass/Vol] 30.3 g/dL 32-36 [facility] Mucus LM Ql (Urine sed)Order ed By: Shon Quintero on 04-25-2023 Mucus Ql (Urine sed) 0 SEEN /hpf [facility] Nitrite Test strip Ql (U)Ord ered By: Shon Quintero on 04-25-2023 Nitrite Ql (U) Negative Negative [facility] No Panel InformationOrdered By: ED PROVIDER on 04-25-2023 Estimated Creatinine Clearance Calc 57.26 ml/min [facility] Estimated GFR (MDRD) Amer 81 mL/min >[address] [facility] Comment on above: GFR Calc Estimated GFR (MDRD) Non-Af Amer 67 mL/min >[address] [facility] Comment on above: Non- GFR Calc Platelets bldOrdered By: ED PROVIDER on 04-25-2023 Platelets (Bld) [#/Vol] 81 10*3/uL 150-[address] [facility] Protein Test strip Ql (U)Ord ered By: Shon Quintero on 04-25-2023 Protein Ql (U) 30 mg/dl Negative [facility] Serum or plasma albumin latrice urement (mass/volume)Ordered By: ED PROVIDER on 04-25-2023 Albumin [Mass/Vol] 3.0 g/dL 3.2-5.0 [facility] Serum or plasma albumin/glob ulin mass ratioOrdered By: ED PROVIDER on 04-25-2023 Albumin/Globulin [Mass ratio] 0.7 {ratio} 0.9-2.[address] [facility] Serum or plasma calcium latrice urement (mass/volume)Ordered By: ED PROVIDER on 04-25-2023 Calcium [Mass/Vol] 8.9 mg/dL 8.5-10.1 [facility] Serum or plasma creatinine m easurement (mass/volume)Ordered By: ED PROVIDER on 04-25-2023 Creatinine [Mass/Vol] 0.94 mg/dL 0.55-1.02 [facility] Comment on above: The validity of the calculated GFR & GFRAA in patients over 70 years has not been determined. Clinical correlation is essential. Serum or plasma urea nitroge n measurement (mass/volume)Ordered By: ED PROVIDER on 04-25-2023 Urea nitrogen [Mass/Vol] 7 mg/dL 7-[address] [facility] Squamous epithelial cells de tection in urine sediment by light microscopyOrdered By: Shon Quintero on 04-25-2023 Epithelial cells.squamous LM Ql (Urine sed) 5-10 SEEN /hpf 5-[address] [facility] Thin prep Papanicolaou smear with manual screeningOrdered By: ED PROVIDER on 04-25-2023 Thin prep Papanicolaou smear with manual screening 219 U/L 15-[address] [facility] Comment on above: Moderate Hemolysis, Result may be falsely increased. Thin prep Papanicolaou smear with manual screening 4 5-[address] [facility] Urine blood detectionOrdered By: Shon Quintero on 04-25-2023 RBC Ql (U) 50 /ul Negative [facility] RBC Ql (U) 0-5 SEEN /hpf 0-[address] [facility] Urine clarityOrdered By: Shon Quintero on 04-25-2023 Clarity (U) Clear Clear [facility] Urine color determinationOrd ered By: Shon Quintero on 04-25-2023 Color (U) Yellow Yellow [facility] Urine glucose detectionOrder ed By: Shon Quintero on 04-25-2023 Glucose Ql (U) Normal mg/dl Normal [facility] Urine leukocyte esterase det ection by dipstickOrdered By: Shon Quintero on 04-25-2023 Leukocyte esterase Test strip Ql (U) 25 /ul Negative [facility] Urine pHOrdered By: Shon bender on 04-25-2023 pH (U) 7.0 [pH] 5.0 - 8.[address] [facility] Urine sediment bacteria coun t by microscopy (number/high power field)Ordered By: Shon Quintero on 04-25-2023 Bacteria LM.HPF (Urine sed) [#/Area] 1 /[HPF] None Seen [facility] Urine specific gravity measu rementOrdered By: Shon Quintero on 04-25-2023 Specific gravity (U) [Rel density] 1.020 1.002-1.[address] [facility] Urobilinogen Auto test strip Ql (U)Ordered By: Shon Quintero on 04-25-2023 Urobilinogen Ql (U) 4 mg/dl Normal [facility] JEANETH SCREENINGon 01-24-2023 [facility] Influenza virus A and B RNA and SARS-CoV-2 (COVID-19) N gene panel PHYLLIS+probe (Resp)on 09-30-2022 FLUAV RNA PHYLLIS+probe Ql (Unsp spec) Negative Negative for Influenza A by RT-PCR [facility] FLUBV RNA PHYLLIS+probe Ql (Unsp spec) Negative Negative for Influenza B by RT-PCR [facility] SARS-CoV-2 (COVID-19) RNA PHYLLIS+probe Ql (Resp) SARS-CoV-2 (Agent of COVID-19) Not Detected by RT-PCR or equivalent method. Not Detected [facility] Absolute lymphocyte counton 08-27-2022 Lymphocytes Auto (Unsp spec) [#/Vol] 2.01 10*3/uL 0.83-4.[address] [facility] Work Phone: [phone] Basophil percentageon 2021 Ammonia (P) [Moles/Vol] 56.0 umol/L 11-[address] [facility] Work Phone: Basophil percentage < 0.2 AI 0.0-0.9 [facility] Work Phone: Basophils/100 WBC (Bld) 0.7 % 0-[address] [facility] Work Phone: Bilirubin [Mass/Vol] 0.90 mg/dL 0.20-1.00 [facility] Work Phone: Comment on above: For patients on eltr ombopag therapy, use of Dimension [place] TBIL is not recommended. Chloride [Moles/Vol] 113 mmol/L 98-107 [facility] Work Phone: Eosinophils/100 WBC (Bld) 2.7 % 0-[address] [facility] Work Phone: Glucose [Mass/Vol] 87 mg/dL 74-106 [facility] Work Phone: [phone] Neutrophils (Bld) [#/Vol] 3.2 10*3/uL 2.0-7.[address] [facility] Work Phone: Neutrophils/100 WBC (Bld) 54.0 % 47-[address] [facility] Work Phone: Potassium [Moles/Vol] 3.8 mmol/L 3.5-5.1 [facility] Work Phone: Protein [Mass/Vol] 7.9 g/dL 6.4-8.2 [facility] Work Phone: Sodium [Moles/Vol] 140 mmol/L 136-145 [facility] Work Phone: WBC (Bld) [#/Vol] 6.0 10*3/uL 4.4-11.0 [facility] Work Phone: Blood erythrocytes count (nu mber/volume)on 08-27-2022 RBC (Bld) [#/Vol] 4.03 10*6/uL 4.2-5.4 [facility] Work Phone: Blood hemoglobin measurement (mass/volume)on 08-27-2022 Hemoglobin (Bld) [Mass/Vol] 9.9 g/dL 12.0-15.[address] [facility] Work Phone: Blood lymphocytes/100 leukoc yteson 08-27-2022 Lymphocytes/100 WBC (Bld) 33.7 % 19-[address] [facility] Work Phone: Blood manual differential co mment interpretation (narrative result)on 08-27-2022 Manual differential comment Eliezer (Bld) [Interp] SCANNED [facility] Work Phone: Comment on above: THROMBOCYTOPENIA NOT ED Blood monocytes/100 leukocyt eson 08-27-2022 Monocytes/100 WBC (Bld) 8.4 % 0-[address] [facility] Work Phone: Blood platelet mean volumeon 08-27-2022 Platelet mean volume (Bld) [Entitic vol] TNP [facility] Work Phone: Comment on above: Test not performed Determination of erythrocyte mean corpuscular volume (MCV)on 08-27-2022 MCV (RBC) [Entitic vol] 79.7 fL 81-[address] [facility] Work Phone: Erythrocyte sedimentation ra gabby 08-27-2022 ESR (Bld) [Velocity] 51 mm/h 0-30 [facility] Work Phone: HIV 1 and HIV-2 antibody ass ay with HIV-1 p24 antigen detectionon 08-27-2022 HIV 1+2 Ab+HIV1 p24 Ag IA Ql Non-Reactive Nonreactive [facility] Work Phone: Hematocrit Auto (Bld) [Volum e fraction]on 08-27-2022 Hematocrit (Bld) [Volume fraction] 32.1 % 37-[address] [facility] Work Phone: INR in Blood by Coagulation assayon 08-27-2022 INR Coag (Bld) [Relative time] 1.5 {INR} [facility] Work Phone: Laboratory - Chemistry and C hemistry - challengeon 08-27-2022 ALP [Catalytic activity/Vol] 151 U/L 45-[address] [facility] Work Phone: ALT [Catalytic activity/Vol] 69 U/L 13-[address] [facility] Work Phone: CO2 [Moles/Vol] 21.0 mmol/L 21.0-32.[address] [facility] Work Phone: Globulin (S) [Mass/Vol] 5.0 g/dL 2.2-4.[address] [facility] Work Phone: Urea nitrogen/Creatinine [Mass ratio] 9.6 mg/mg 10-[address] [facility] Work Phone: Laboratory - Coagulationon 1 10-28-2021 PT Coag (PPP) [Time] 17.5 s 11.7-14.9 [facility] Work Phone: Laboratory - Hematology and Cell countson 08-27-2022 Erythrocyte distribution width (RBC) [Entitic vol] 56.0 fL 35.1-43.[address] [facility] Work Phone: Erythrocyte distribution width (RBC) [Ratio] 19.5 % 11.6-14.[address] [facility] Work Phone: Immature granulocytes/100 WBC (Bld) 0.500 % 0.0-0.[address] [facility] Work Phone: Comment on above: IG% - Immature Granu locytes (promyelocytes, myelocytes and metamyelocytes) > 1% indicates that a LEFT SHIFT is Present. MCH (RBC) [Entitic mass] 24.6 pg 27.0-32.[address] [facility] Work Phone: Nucleated RBC/100 WBC (Bld) [Ratio] 0 % 0-[address] [facility] Work Phone: MCHC Auto (RBC) [Mass/Vol]on 08-27-2022 MCHC (RBC) [Mass/Vol] 30.8 g/dL 32-36 [facility] Work Phone: No Panel Informationon 08-27 Centromere B Antibody <0.2 AI 0.0-0.9 [facility] Work Phone: Ceruloplasmin See comment [facility] Work Phone: Comment on above: TEST RESULT LIMITSCe ruloplasmin 17.9 Low mg/dL 19.0-39.0 ___ TESTING PERFORMED AT [facility]. ORIGINAL REPORT ON FILE IN LAB CONTAINS ADDITIONAL TEST SITE INFORMATION. Estimated GFR (MDRD) Amer 81 mL/min >[address] [facility] Work Phone: Comment on above: GFR Calc Estimated GFR (MDRD) Non-Af Amer 67 mL/min >[address] [facility] Work Phone: Comment on above: Non- GFR Calc Haptoglobin See comment [facility] Work Phone: Comment on above: TEST RESULT LIMITSHa ptoglobin 32 Low mg/dL 42-296 TESTING PERFORMED AT [facility]. ORIGINAL REPORT ON FILE IN LAB CONTAINS ADDITIONAL TEST SITE INFORMATION. Hepatitis A IgM Antibody See comment [facility] Work Phone: Comment on above: TEST RESULT LIMITSAc [place] Hepatitis Hep A Ab, IgM Negative Negative HBsAg Screen Negative Negative Hep B Core Ab, IgM Negative Negative HCV Ab >11.0 High s/co ratio 0.0-0.9 Hepatitis C Quantitation 265,000 IU/mL HCV log10 5.423 log10 IU/mLTest Information: The quantitative range of this assay is 15 IU/mL to 100 million IU/mL.Interpretation: Positive HCV antibody screen with the presence of HCV RNA isconsistent with active infection. ____ TESTING PERFORMED AT [facility]. ORIGINAL REPORT ON FILE IN LAB CONTAINS ADDITIONAL TEST SITE INFORMATION. Hepatitis B Core IgM Antibody Not Reportable [facility] Work Phone: Hepatitis C Antibody (EIA) Not Reportable [facility] Work Phone: Hepatitis C Genotype See comment [facility] Work Phone: Comment on above: TEST RESULT LIMITSHC V Genotyping Non Reflex Hepatitis C Genotype 1aPlease note: This test was developed and its performance characteristics determined by [employer]. It has not been cleared or approved by the U.S. Food and Drug Administration.The FDA has determined that such clearance or approval is not necessary. This test is used for clinical purposes. It should not be regarded as investigational or for research. ___ TESTING PERFORMED AT [facility]. ORIGINAL REPORT ON FILE IN LAB CONTAINS ADDITIONAL TEST SITE INFORMATION. PROPOSAL COORDINATOR Antibody 0.2 AI 0.0-0.[address] [facility] Work Phone: [phone] Platelets bldon 08-27-2022 Platelets (Bld) [#/Vol] 70 10*3/uL 150-[address] [facility] Work Phone: Serum DNA double strand anti body assay (units/volume)on 08-27-2022 DNA double strand Ab Qn (S) 3 [IU]/mL 0-[address] [facility] Work Phone: Comment on above: Negative <5 Equivoca l 5 - 9 Positive >9 Serum Thania-1 antibody assay (u nits/volume)on 08-27-2022 Thania-1 extractable nuclear Ab Qn (S) <0.2 AI 0.0-0.[address] [facility] Work Phone: Serum Scl-70 extractable nuc lear antibody assay (units/volume)on 08-27-2022 SCL-70 extractable nuclear Ab Qn (S) <0.2 AI 0.0-0.[address] [facility] Work Phone: Serum Armstrong extractable nucl ear antibody detectionon 08-27-2022 Armstrong extractable nuclear Ab Ql (S) <0.2 AI 0.0-0.[address] [facility] Work Phone: Serum classic neutrophil cyt oplasmic antibody assay (units/volume)on 08-27-2022 Neutrophil cytoplasmic Ab.classic Qn (S) See comment [facility] Work Phone: Comment on above: TEST RESULT LIMITSAn tineutrophil Cytoplasmic Ab Cytoplasmic (C-ANCA) <1:20 titer Neg:<1:20 Perinuclear (P-ANCA) <1:20 titer Neg:<1:20The presence of positive fluorescence exhibiting P-ANCA or C-ANCA patterns alone is not specific for the diagnosis of Dilia's Granulomatosis (WG) or microscopic polyangiitis. Decisions about treatment should not be based solely on ANCA IFA results. The [employer] ANCA [employer] Consensus recommends follow up testing of positive sera with both WY-3 and MPO-ANCA enzyme immunoassays. As many as 5% serum samples are positive only by EIA.Ref. AM J Clin Pathol 1999;111:507-513.Atypical pANCA <1:20 titer Neg:<1:20The atypical pANCA pattern has been observed in a significant percentage of patients with ulcerative colitis, primary sclerosing cholangitis and autoimmune hepatitis. ____ TESTING PERFORMED AT [facility]. ORIGINAL REPORT ON FILE IN LAB CONTAINS ADDITIONAL TEST SITE INFORMATION. Serum mitochondria antibody detectionon 08-27-2022 Mitochondria Ab Ql (S) <20.0 Units 0.0-20.0 [facility] Work Phone: Comment on above: Negative 0.0 - 20.0 Equivocal 20.1 - 24.9 Positive >24.9Mitochondrial (M2) Antibodies are found in 90-96% ofpatients with primary biliary cirrhosis.Performed at: [facility] [address] [id number] Director: Tee Reyna PhD, Phone: [phone] Serum or plasma C reactive p rotein measurement (mass/volume)on 08-27-2022 CRP [Mass/Vol] 5.71 mg/L 0.0-3.[address] [facility] Work Phone: Comment on above: C-Reactive Protein ( CRP) provides useful information for thediagnosis, therapy and monitoring of inflammatory processesand associated diseases. For the evaluation of Relative Riskfor Cardiovascular Disease, a High Sensitivity CRP (HSCRP)should be ordered. Serum or plasma actin IgG an tibody assay (units/volume)on 08-27-2022 Actin IgG Qn See comment [facility] Work Phone: Comment on above: TEST RESULT LIMITSAc tin (Smooth Muscle)Antibody 9 Units 0-19 Negative 0 - 19 Weak positive 20 - 30 Moderate to strong positive >30 Actin Antibodies are found in 52-85% of patients with autoimmune hepatitis or chronic active hepatitis and in 22% of patients with primary biliary cirrhosis. ____ TESTING PERFORMED AT [facility]. ORIGINAL REPORT ON FILE IN LAB CONTAINS ADDITIONAL TEST SITE INFORMATION. Serum or plasma albumin latrice urement (mass/volume)on 08-27-2022 Albumin [Mass/Vol] 2.9 g/dL 3.2-5.0 [facility] Work Phone: Serum or plasma albumin/glob ulin mass ratioon 08-27-2022 Albumin/Globulin [Mass ratio] 0.6 {ratio} 0.9-2.[address] [facility] Work Phone: Serum or plasma [id number] protein tumor marker measurement (units/volume)on 08-27-2022 AFP.tumor marker Qn See comment [facility] Work Phone: Comment on above: TEST RESULT LIMITSAF P, Serum, Tumor Marker 23.2 High ng/mL 0.0-6.4[employer] Electrochemiluminescence Immunoassay (ECLIA)Values obtained with different assay methods or kits cannot be used interchangeably. Results cannot be interpreted as absolute evidence of the presence or absence of malignant disease.This test is not interpretable in females. __ [facility]. ORIGINAL REPORT ON FILE IN LAB CONTAINS ADDITIONAL TEST SITE INFORMATION. Serum or plasma angiotensin converting enzyme measurement (enzymatic activity/volume)on 08-27-2022 Angiotensin converting enzyme [Catalytic activity/Vol] See comment [facility] Work Phone: Comment on above: TEST RESULT LIMITSAn giotensin-Converting Enzyme PETERSON, Serum 72 U/L 14-82 [facility]FORMED AT [facility]. ORIGINAL REPORT ON FILE IN LAB CONTAINS ADDITIONAL TEST SITE INFORMATION. Serum or plasma calcium latrice urement (mass/volume)on 08-27-2022 Calcium [Mass/Vol] 9.0 mg/dL 8.5-10.1 [facility] Work Phone: Serum or plasma creatinine m easurement (mass/volume)on 08-27-2022 Creatinine [Mass/Vol] 0.94 mg/dL 0.55-1.02 [facility] Work Phone: Comment on above: The validity of the calculated GFR & GFRAA in patients over 70 years has not been determined. Clinical correlation is essential. Serum or plasma ferritin mic surement (mass/volume)on 08-27-2022 Ferritin [Mass/Vol] 7 ng/mL 8-252 [facility] Work Phone: Serum or plasma hepatitis B virus surface antigen detection by immunoassayon 08-27-2022 HBV surface Ag IA Ql Not Reportable [facility] Work Phone: Serum or plasma urea nitroge n measurement (mass/volume)on 08-27-2022 Urea nitrogen [Mass/Vol] 9 mg/dL 7-[address] [facility] Work Phone: Serum perinuclear neutrophil cytoplasmic antibody titer by immunofluorescenceon 08-27-2022 Neutrophil cytoplasmic Ab.perinuclear IF (S) [Titer] Not Reportable [facility] Work Phone: Thin prep Papanicolaou smear with manual screeningon 08-27-2022 Thin prep Papanicolaou smear with manual screening 112 U/L 15-[address] [facility] Work Phone: Thin prep Papanicolaou smear with manual screening 6 5-[address] [facility] Work Phone: Thin prep Papanicolaou smear with manual screening 172 U/L 84-[address] [facility] Work Phone: Thin prep Papanicolaou smear with manual screening See comment [facility] Work Phone: Comment on above: TEST RESULT LIMITSCo pper, Serum or Plasma, 78 Low ug/dL 80-158 Detection Limit = 5 TESTING PERFORMED AT [facility]. ORIGINAL REPORT ON FILE IN LAB CONTAINS ADDITIONAL TEST SITE INFORMATION. Whole blood hemoglobin A1c/t otal hemoglobin ratio (mass fraction)on 08-27-2022 HbA1c (Bld) [Mass fraction] 5.1 % 3.8-5.[address] [facility] Work Phone: Comment on above: Normal < 5.7 % Predi abetic 5.7 - 6.4 % Diabetic >or= 6.5 % Please note range changes. Absolute lymphocyte counton 05-21-2022 Lymphocytes Auto (Unsp spec) [#/Vol] 2.52 10*3/uL 0.83-4.[address] [facility] Work Phone: Basophil percentageon 2021 Basophils/100 WBC (Bld) 0.6 % 0-[address] [facility] Work Phone: Bilirubin [Mass/Vol] 1.00 mg/dL 0.20-1.00 [facility] Work Phone: Comment on above: For patients on eltr ombopag therapy, use of Dimension [place] TBIL is not recommended. Chloride [Moles/Vol] 110 mmol/L 98-107 [facility] Work Phone: Eosinophils/100 WBC (Bld) 2.7 % 0-[address] [facility] Work Phone: Glucose [Mass/Vol] 106 mg/dL 74-106 [facility] Work Phone: Comment on above: Fasting Glucose resu lt from 100 to 125 mg/dL suggests IMPAIRED HOMEOSTASIS per A.D.A. criteria. Neutrophils (Bld) [#/Vol] 3.7 10*3/uL 2.0-7.[address] [facility] Work Phone: Neutrophils/100 WBC (Bld) 52.4 % 47-[address] [facility] Work Phone: Potassium [Moles/Vol] 3.9 mmol/L 3.5-5.1 [facility] Work Phone: Protein [Mass/Vol] 7.2 g/dL 6.4-8.2 [facility] Work Phone: Sodium [Moles/Vol] 138 mmol/L 136-145 [facility] Work Phone: [phone] WBC (Bld) [#/Vol] 7.0 10*3/uL 4.4-11.0 [facility] Work Phone: Blood erythrocytes count (nu mber/volume)on 05-21-2022 RBC (Bld) [#/Vol] 3.79 10*6/uL 4.2-5.4 [facility] Work Phone: Blood hemoglobin measurement (mass/volume)on 05-21-2022 Hemoglobin (Bld) [Mass/Vol] 10.4 g/dL 12.0-15.[address] [facility] Work Phone: Blood lymphocytes/100 leukoc yteson 05-21-2022 Lymphocytes/100 WBC (Bld) 35.9 % 19-[address] [facility] Work Phone: [phone] Blood monocytes/100 leukocyt eson 05-21-2022 Monocytes/100 WBC (Bld) 8.3 % 0-[address] [facility] Work Phone: Blood platelet mean volumeon 05-21-2022 Platelet mean volume (Bld) [Entitic vol] 10.7 fL 6.2-12.[address] [facility] Work Phone: Determination of erythrocyte mean corpuscular volume (MCV)on 05-21-2022 MCV (RBC) [Entitic vol] 86.8 fL 81-[address] [facility] Work Phone: Hematocrit Auto (Bld) [Volum e fraction]on 05-21-2022 Hematocrit (Bld) [Volume fraction] 32.9 % 37-[address] [facility] Work Phone: Laboratory - Chemistry and C hemistry - challengeon 05-21-2022 ALP [Catalytic activity/Vol] 150 U/L 45-[address] [facility] Work Phone: ALT [Catalytic activity/Vol] 83 U/L 13-[address] [facility] Work Phone: CO2 [Moles/Vol] 25.0 mmol/L 21.0-32.[address] [facility] Work Phone: Globulin (S) [Mass/Vol] 4.8 g/dL 2.2-4.[address] [facility] Work Phone: Urea nitrogen/Creatinine [Mass ratio] 9.5 mg/mg 10-[address] [facility] Work Phone: Laboratory - Hematology and Cell countson 05-21-2022 Erythrocyte distribution width (RBC) [Entitic vol] 62.4 fL 35.1-43.[address] [facility] Work Phone: Erythrocyte distribution width (RBC) [Ratio] 19.5 % 11.6-14.[address] [facility] Work Phone: Immature granulocytes/100 WBC (Bld) 0.100 % 0.0-0.[address] [facility] Work Phone: Comment on above: IG% - Immature Granu locytes (promyelocytes, myelocytes and metamyelocytes) > 1% indicates that a LEFT SHIFT is Present. MCH (RBC) [Entitic mass] 27.4 pg 27.0-32.[address] [facility] Work Phone: Nucleated RBC/100 WBC (Bld) [Ratio] 0 % 0-[address] [facility] Work Phone: MCHC Auto (RBC) [Mass/Vol]on 05-21-2022 MCHC (RBC) [Mass/Vol] 31.6 g/dL 32-36 [facility] Work Phone: No Panel Informationon 05-21 Estimated Creatinine Clearance Calc 64.78 ml/min [facility] Work Phone: Estimated GFR (MDRD) Amer 93 mL/min >[address] [facility] Work Phone: Comment on above: GFR Calc Estimated GFR (MDRD) Non-Af Amer 77 mL/min >[address] [facility] Work Phone: Comment on above: Non- GFR Calc Platelets bldon 05-21-2022 Platelets (Bld) [#/Vol] 74 10*3/uL 150-[address] [facility] Work Phone: Serum or plasma albumin latrice urement (mass/volume)on 05-21-2022 Albumin [Mass/Vol] 2.4 g/dL 3.2-5.0 [facility] Work Phone: Serum or plasma albumin/glob ulin mass ratioon 05-21-2022 Albumin/Globulin [Mass ratio] 0.5 {ratio} 0.9-2.[address] [facility] Work Phone: Serum or plasma calcium latrice urement (mass/volume)on 05-21-2022 Calcium [Mass/Vol] 8.7 mg/dL 8.5-10.1 [facility] Work Phone: Serum or plasma creatinine m easurement (mass/volume)on 05-21-2022 Creatinine [Mass/Vol] 0.84 mg/dL 0.55-1.02 [facility] Work Phone: Comment on above: The validity of the calculated GFR & GFRAA in patients over 70 years has not been determined. Clinical correlation is essential. Serum or plasma urea nitroge n measurement (mass/volume)on 05-21-2022 Urea nitrogen [Mass/Vol] 8 mg/dL 7-[address] [facility] Work Phone: Thin prep Papanicolaou smear with manual screeningon 05-21-2022 Thin prep Papanicolaou smear with manual screening 240 U/L 15-[address] [facility] Work Phone: [phone] Thin prep Papanicolaou smear with manual screening 3 5-[address] [facility] Work Phone: [phone] Basophil percentageon 2021 Ammonia (P) [Moles/Vol] 61.0 umol/L [facility] Work Phone: [phone] Absolute lymphocyte counton 05-19-2022 Lymphocytes Auto (Unsp spec) [#/Vol] 2.67 10*3/uL 0.83-4.[address] [facility] Work Phone: [phone] Basophil percentageon 2021 Basophil percentage 3.1 mg/dL 2.5-4.9 [facility] Work Phone: Basophil percentage 0-5 SEEN /hpf 0-5 [facility] Work Phone: Ammonia (P) [Moles/Vol] 83.0 umol/L [facility] Work Phone: Basophils/100 WBC (Bld) 0.6 % 0-[address] [facility] Work Phone: Bilirubin [Mass/Vol] 1.00 mg/dL 0.20-1.00 [facility] Work Phone: Comment on above: For patients on eltr ombopag therapy, use of Dimension [place] TBIL is not recommended. Chloride [Moles/Vol] 112 mmol/L 98-107 [facility] Work Phone: Eosinophils/100 WBC (Bld) 3.1 % 0-[address] [facility] Work Phone: [phone] Glucose [Mass/Vol] 108 mg/dL 74-106 [facility] Work Phone: Comment on above: Fasting Glucose resu lt from 100 to 125 mg/dL suggests IMPAIRED HOMEOSTASIS per A.D.A. criteria. Neutrophils (Bld) [#/Vol] 4.2 10*3/uL 2.0-7.[address] [facility] Work Phone: Neutrophils/100 WBC (Bld) 53.5 % 47-[address] [facility] Work Phone: Potassium [Moles/Vol] 3.6 mmol/L 3.5-5.1 [facility] Work Phone: Protein [Mass/Vol] 7.9 g/dL 6.4-8.2 [facility] Work Phone: Sodium [Moles/Vol] 140 mmol/L 136-145 [facility] Work Phone: WBC (Bld) [#/Vol] 7.8 10*3/uL 4.4-11.0 [facility] Work Phone: Bilirubin Test strip Ql (U)o n 05-19-2022 Bilirubin Ql (U) 1 mg/dL Negative [facility] Work Phone: Comment on above: COLOR OF URINE MAY A FFECT DIPSTICK RESULTS. Blood erythrocytes count (nu mber/volume)on 05-19-2022 RBC (Bld) [#/Vol] 4.06 10*6/uL 4.2-5.4 [facility] Work Phone: Blood hemoglobin measurement (mass/volume)on 05-19-2022 Hemoglobin (Bld) [Mass/Vol] 10.7 g/dL 12.0-15.[address] [facility] Work Phone: Blood lymphocytes/100 leukoc yteson 05-19-2022 Lymphocytes/100 WBC (Bld) 34.4 % 19-[address] [facility] Work Phone: [phone] Blood monocytes/100 leukocyt eson 05-19-2022 Monocytes/100 WBC (Bld) 8.1 % 0-[address] [facility] Work Phone: Blood platelet mean volumeon 05-19-2022 Platelet mean volume (Bld) [Entitic vol] 11.4 fL 6.2-12.[address] [facility] Work Phone: Calcium oxalate crystals det ection in urine sediment by light microscopyon 05-19-2022 Calcium oxalate crystals LM Ql (Urine sed) 1+ /hpf [facility] Work Phone: Determination of erythrocyte mean corpuscular volume (MCV)on 05-19-2022 MCV (RBC) [Entitic vol] 85.2 fL 81-[address] [facility] Work Phone: Direct bilirubinon 2 Bilirubin.direct [Mass/Vol] 0.49 mg/dL 0.00-0.[address] [facility] Work Phone: Hematocrit Auto (Bld) [Volum e fraction]on 05-19-2022 Hematocrit (Bld) [Volume fraction] 34.6 % 37-[address] [facility] Work Phone: Hyaline casts LM.LPF (Urine sed) [#/Area]on 05-19-2022 Hyaline casts (Urine sed) [#/Area] 0 /[LPF] 0-[address] [facility] Work Phone: INR in Blood by Coagulation assayon 05-19-2022 INR Coag (Bld) [Relative time] 1.5 {INR} [facility] Work Phone: Ketones Test strip Ql (U)on 05-19-2022 Ketones Ql (U) 5 mg/dl Negative [facility] Work Phone: Laboratory - Chemistry and C hemistry - challengeon 05-19-2022 Magnesium [Mass/Vol] 1.8 mg/dL 1.6-2.6 [facility] Work Phone: ALP [Catalytic activity/Vol] 144 U/L 45-[address] [facility] Work Phone: ALT [Catalytic activity/Vol] 63 U/L 13-[address] [facility] Work Phone: CO2 [Moles/Vol] 20.0 mmol/L 21.0-32.[address] [facility] Work Phone: Globulin (S) [Mass/Vol] 5.2 g/dL 2.2-4.[address] [facility] Work Phone: Urea nitrogen/Creatinine [Mass ratio] 10.7 mg/mg 10-[address] [facility] Work Phone: Laboratory - Coagulationon 0 05-19-2022 PT Coag (PPP) [Time] 17.5 s 11.7-14.9 [facility] Work Phone: Laboratory - Drug toxicology on 05-19-2022 Amphetamines Ql (U) Positive <1000 ng/mL [facility] Work Phone: Benzodiazepines Ql (U) Negative < 200 ng/mL [facility] Work Phone: Cannabinoids Screen Ql (U) Positive < 50 ng/mL [facility] Work Phone: Cocaine Ql (U) Negative < 300 ng/mL [facility] Work Phone: Opiates Ql (U) Negative < 300 ng/mL [facility] Work Phone: Laboratory - Hematology and Cell countson 05-19-2022 Erythrocyte distribution width (RBC) [Entitic vol] 60.3 fL 35.1-43.[address] [facility] Work Phone: Erythrocyte distribution width (RBC) [Ratio] 19.5 % 11.6-14.[address] [facility] Work Phone: Immature granulocytes/100 WBC (Bld) 0.300 % 0.0-0.[address] [facility] Work Phone: Comment on above: IG% - Immature Granu locytes (promyelocytes, myelocytes and metamyelocytes) > 1% indicates that a LEFT SHIFT is Present. MCH (RBC) [Entitic mass] 26.4 pg 27.0-32.[address] [facility] Work Phone: Nucleated RBC/100 WBC (Bld) [Ratio] 0 % 0-[address] [facility] Work Phone: Laboratory - Microbiology an d Antimicrobial susceptibilityon 05-19-2022 SARS-CoV-2 (COVID-19) RNA PHYLLIS+probe Ql (Unsp spec) Not detected Not Detect [facility] Work Phone: Comment on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 10:48-0500 Body weight 80.97 kg Pete Ponce MD Work Phone: [facility] 09-27-2024 10:31-0500 Diastolic blood pressure 73 mm[Hg] Ginger Milton MD Work Phone: [facility] 09-27-2024 10:31-0500 Heart rate 68 /min Ginger Milton MD Work Phone: [facility] 09-27-2024 10:31-0500 SaO2% (BldA) [Mass fraction] 100 % Ginger Milton MD Work Phone: [facility] 09-27-2024 10:31-0500 Systolic blood pressure 116 mm[Hg] Ginger Milton MD Work Phone: [facility] 09-20-2024 11:10-0500 Diastolic blood pressure 65 mm[Hg] Minda Gómez MD Work Phone: [facility] 09-20-2024 11:10-0500 Heart rate 57 /min Midna Gómez MD Work Phone: [facility] 09-20-2024 11:10-0500 SaO2% (BldA) [Mass fraction] 100 % Minda Gómez MD Work Phone: [facility] 09-20-2024 11:10-0500 Systolic blood pressure 101 mm[Hg] Minda Gómez MD Work Phone: [facility] 09-20-2024 11:05-0500 Respiratory rate 16 /min Minda Gómez MD Work Phone: [facility] 09-13-2024 14:53-0500 Diastolic blood pressure 82 mm[Hg] Max Rico MD Work Phone: [facility] 09-13-2024 14:53-0500 Heart rate 59 /min Max Rico MD Work Phone: [facility] 09-13-2024 14:53-0500 SaO2% (BldA) [Mass fraction] 99 % Max Rico MD Work Phone: [facility] 09-13-2024 14:53-0500 Systolic blood pressure 126 mm[Hg] Max Rico MD Work Phone: [facility] 08-30-2024 14:26-0500 Diastolic blood pressure 85 mm[Hg] Minda Gómez MD Work Phone: [facility] 08-30-2024 14:26-0500 Heart rate 64 /min Minda Gómez MD Work Phone: [facility] 08-30-2024 14:26-0500 SaO2% (BldA) [Mass fraction] 99 % Minda Gómez MD Work Phone: [facility] 08-30-2024 14:26-0500 Systolic blood pressure 139 mm[Hg] Minda Gómez MD Work Phone: [facility] 08-30-2024 14:26-0500 Respiratory rate 16 /min Minda Gómez MD Work Phone: [facility] 08-22-2024 13:19-0500 Diastolic blood pressure 58 mm[Hg] Max Rico MD Work Phone: [facility] 08-22-2024 13:19-0500 Heart rate 73 /min Max Rico MD Work Phone: [facility] 08-22-2024 13:19-0500 Respiratory rate 16 /min Max Rico MD Work Phone: [facility] 08-22-2024 13:19-0500 SaO2% (BldA) [Mass fraction] 98 % Max Rico MD Work Phone: [facility] 08-22-2024 13:19-0500 Systolic blood pressure 105 mm[Hg] Max Rico MD Work Phone: [facility] 08-16-2024 14:02-0500 Diastolic blood pressure 75 mm[Hg] Ginger Milton MD Work Phone: [facility] 08-16-2024 14:02-0500 Heart rate 70 /min Ginger Milton MD Work Phone: [facility] 08-16-2024 14:02-0500 SaO2% (BldA) [Mass fraction] 98 % Ginger Milton MD Work Phone: [facility] 08-16-2024 14:02-0500 Systolic blood pressure 122 mm[Hg] Ginger Milton MD Work Phone: [facility] 08-16-2024 13:24-0500 Respiratory rate 16 /min Ginger Milton MD Work Phone: [facility] 08-09-2024 14:21-0500 Diastolic blood pressure 63 mm[Hg] Minda Gómez MD Work Phone: [facility] 08-09-2024 14:21-0500 Heart rate 75 /min Minda Gómez MD Work Phone: [facility] 08-09-2024 14:21-0500 Respiratory rate 18 /min Minda Gómez MD Work Phone: [facility] 08-09-2024 14:21-0500 SaO2% (BldA) [Mass fraction] 97 % Minda Gómez MD Work Phone: [facility] 08-09-2024 14:21-0500 Systolic blood pressure 114 mm[Hg] Minda Gómez MD Work Phone: [facility] 08-02-2024 15:43-0500 Diastolic blood pressure 65 mm[Hg] Ginger Milton MD Work Phone: [facility] 08-02-2024 15:43-0500 Heart rate 72 /min Ginger Milton MD Work Phone: [facility] 08-02-2024 15:43-0500 SaO2% (BldA) [Mass fraction] 99 % Ginger Milton MD Work Phone: [facility] 08-02-2024 15:43-0500 Systolic blood pressure 109 mm[Hg] Ginger Milton MD Work Phone: [facility] 07-26-2024 17:07-0400 Diastolic blood pressure 83 mm[Hg] Pete Ponce MD Work Phone: [facility] 07-26-2024 17:07-0400 Respiratory rate 16 /min Pete Ponce MD Work Phone: [facility] 07-26-2024 17:07-0400 SaO2% (BldA) [Mass fraction] 100 % Pete Ponce MD Work Phone: [facility] 07-26-2024 17:07-0400 Systolic blood pressure 121 mm[Hg] Pete Ponce MD Work Phone: [facility] 07-26-2024 16:48-0400 Heart rate 58 /min Pete Ponce MD Work Phone: [facility] 07-26-2024 10:43-0400 Body height 157.5 cm Pete Ponce MD Work Phone: [facility] 07-26-2024 10:43-0400 Body mass index (BMI) [Ratio] 32.9 kg/m2 Pete Ponce MD Work Phone: [facility] 07-26-2024 10:43-0400 Body temperature 98.71 [degF] Pete Ponce MD Work Phone: [facility] 07-26-2024 10:43-0400 Body weight 81.6 kg Pete Ponce MD Work Phone: [facility] 07-19-2024 17:11-0400 Diastolic blood pressure 68 mm[Hg] Minda Gómez MD Work Phone: [facility] 07-19-2024 17:11-0400 Heart rate 74 /min Minda Gómez MD Work Phone: [facility] 07-19-2024 17:11-0400 SaO2% (BldA) [Mass fraction] 99 % Minda Gómez MD Work Phone: [facility] 07-19-2024 17:11-0400 Systolic blood pressure 116 mm[Hg] Minda Gómez MD Work Phone: [facility] 07-19-2024 16:03-0400 Respiratory rate 14 /min Minda Gómez MD Work Phone: [facility] 07-10-2024 07:25-0400 Body temperature 99 [degF] Lambert Veliz DO Work Phone: [facility] 07-10-2024 07:25-0400 Diastolic blood pressure 73 mm[Hg] Lambert Veliz DO Work Phone: [facility] 07-10-2024 07:25-0400 Heart rate 69 /min Lambert Veliz DO Work Phone: [facility] 07-10-2024 07:25-0400 SaO2% (BldA) [Mass fraction] 100 % Lambert Veliz DO Work Phone: [facility] 07-10-2024 07:25-0400 Systolic blood pressure 133 mm[Hg] Lambert Veliz DO Work Phone: [facility] 07-10-2024 05:00-0400 Body mass index (BMI) [Ratio] 30.93 kg/m2 Lambert Veliz DO Work Phone: [facility] 07-10-2024 05:00-0400 Body weight 76.7 kg Lambert Veliz DO Work Phone: [facility] 07-10-2024 04:01-0400 Respiratory rate 18 /min Lambert Veliz DO Work Phone: [facility] 07-08-2024 18:00-0400 Body height 157.5 cm Lambert Veliz DO Work Phone: [facility] 07-05-2024 10:28-0400 Body height 157.5 cm Pete Ponce MD Work Phone: [facility] 07-05-2024 10:28-0400 Body mass index (BMI) [Ratio] 30.6 kg/m2 Pete Ponce MD Work Phone: [facility] 07-05-2024 10:28-0400 Body temperature 98.49 [degF] Pete Ponce MD Work Phone: [facility] 07-05-2024 10:28-0400 Body weight 75.89 kg Pete Ponce MD Work Phone: [facility] 07-05-2024 10:28-0400 Diastolic blood pressure 84 mm[Hg] Pete Ponce MD Work Phone: [facility] 07-05-2024 10:28-0400 Heart rate 64 /min Pete Ponce MD Work Phone: [facility] 07-05-2024 10:28-0400 Respiratory rate 20 /min Pete Ponce MD Work Phone: [facility] 07-05-2024 10:28-0400 SaO2% (BldA) [Mass fraction] 100 % Pete Ponce MD Work Phone: [facility] 07-05-2024 10:28-0400 Systolic blood pressure 134 mm[Hg] Pete Ponce MD Work Phone: [facility] 07-02-2024 14:19-0400 Diastolic blood pressure 79 mm[Hg] Pete Ponce MD Work Phone: [facility] 07-02-2024 14:19-0400 Heart rate 54 /min Pete Ponce MD Work Phone: [facility] 07-02-2024 14:19-0400 Respiratory rate 16 /min Pete Ponce MD Work Phone: [facility] 07-02-2024 14:19-0400 SaO2% (BldA) [Mass fraction] 99 % Pete Ponce MD Work Phone: [facility] 07-02-2024 14:19-0400 Systolic blood pressure 153 mm[Hg] Pete Ponce MD Work Phone: [facility] 07-02-2024 09:54-0400 Body height 157.5 cm Pete Ponce MD Work Phone: [facility] 07-02-2024 09:54-0400 Body mass index (BMI) [Ratio] 30.56 kg/m2 Pete Ponce MD Work Phone: [facility] 07-02-2024 09:54-0400 Body temperature 98.71 [degF] Pete Ponce MD Work Phone: [facility] 07-02-2024 09:54-0400 Body weight 75.8 kg Pete Ponce MD Work Phone: [facility] 05-10-2024 12:16-0400 Body mass index (BMI) [Ratio] 28.35 kg/m2 Krishna Lara REFRACTORY MIXER.COMMUNITY SERVICE OFFICER Work Phone: [facility] 05-10-2024 12:16-0400 Body weight 70.31 kg Krishna Lara APRN.COMMUNITY SERVICE OFFICER Work Phone: [facility] 05-10-2024 12:16-0400 Diastolic blood pressure 80 mm[Hg] Krishna Lara REFRACTORY MIXER.COMMUNITY SERVICE OFFICER Work Phone: [facility] 05-10-2024 12:16-0400 Heart rate 66 /min Krishna Lara REFRACTORY MIXER.COMMUNITY SERVICE OFFICER Work Phone: [facility] 05-10-2024 12:16-0400 Respiratory rate 14 /min Krishna Lara APRN.COMMUNITY SERVICE OFFICER Work Phone: [facility] 05-10-2024 12:16-0400 Systolic blood pressure 129 mm[Hg] Krishna Lara REFRACTORY MIXER.COMMUNITY SERVICE OFFICER Work Phone: [facility] 05-07-2024 10:31-0400 Body mass index (BMI) [Ratio] 28.35 kg/m2 Danny Dowling REFRACTORY MIXER.COMMUNITY SERVICE OFFICER Work Phone: [facility] 05-07-2024 10:31-0400 Body temperature 97.39 [degF] Danny Dowling REFRACTORY MIXER.COMMUNITY SERVICE OFFICER Work Phone: [facility] 05-07-2024 10:31-0400 Body weight 70.3 kg Danny Dowling REFRACTORY MIXER.COMMUNITY SERVICE OFFICER Work Phone: [facility] 05-07-2024 10:31-0400 Diastolic blood pressure 80 mm[Hg] Danny Praisler-Wood REFRACTORY MIXER.COMMUNITY SERVICE OFFICER Work Phone: [facility] 05-07-2024 10:31-0400 Heart rate 64 /min Danny Praisler-Wood REFRACTORY MIXER.COMMUNITY SERVICE OFFICER Work Phone: [facility] 05-07-2024 10:31-0400 Respiratory rate 16 /min Danny Praisler-Wood REFRACTORY MIXER.COMMUNITY SERVICE OFFICER Work Phone: [facility] 05-07-2024 10:31-0400 SaO2% (BldA) [Mass fraction] 100 % Danny Praisler-Wood REFRACTORY MIXER.COMMUNITY SERVICE OFFICER Work Phone: [facility] 05-07-2024 10:31-0400 Systolic blood pressure 124 mm[Hg] Danny Praisler-Wood REFRACTORY MIXER.COMMUNITY SERVICE OFFICER Work Phone: [facility] 04-20-2024 13:43-0400 Body mass index (BMI) [Ratio] 28.9 kg/m2 Mervin Matthews REFRACTORY MIXER.COMMUNITY SERVICE OFFICER Work Phone: [facility] 04-20-2024 13:43-0400 Body weight 71.67 kg Mervin Matthews REFRACTORY MIXER.COMMUNITY SERVICE OFFICER Work Phone: [facility] 04-20-2024 13:43-0400 Diastolic blood pressure 80 mm[Hg] Mervin Cristóbal REFRACTORY MIXER.COMMUNITY SERVICE OFFICER Work Phone: [facility] 04-20-2024 13:43-0400 Heart rate 66 /min Mervin Cristóbal REFRACTORY MIXER.COMMUNITY SERVICE OFFICER Work Phone: [facility] 04-20-2024 13:43-0400 Respiratory rate 16 /min Mervin Cristóbal REFRACTORY MIXER.COMMUNITY SERVICE OFFICER Work Phone: [facility] 04-20-2024 13:43-0400 SaO2% (BldA) [Mass fraction] 98 % Mervin Matthews REFRACTORY MIXER.COMMUNITY SERVICE OFFICER Work Phone: [facility] 04-20-2024 13:43-0400 Systolic blood pressure 110 mm[Hg] Mervin Cristóbal REFRACTORY MIXER.COMMUNITY SERVICE OFFICER Work Phone: [facility] 03-23-2024 17:55-0400 Diastolic Blood Pressure Non-Invasive 62 mm[Hg] CARLA MUHAMMADT DO [facility] 03-23-2024 17:55-0400 Heart rate 57 /min CARLA MUHAMMADT DO [facility] 03-23-2024 17:55-0400 Respiratory rate 16 /min CARLA MUHAMMADT DO [facility] 03-23-2024 17:55-0400 Systolic Blood Pressure Non-Invasive 97 mm[Hg] CARLA MUHAMMADT DO [facility] 03-23-2024 14:22-0400 Body temperature 97.16 [degF] CARLA MUHAMMADT DO [facility] 03-23-2024 14:22-0400 Body weight 72.6 kg CARLA MUHAMMADT DO [facility] 03-23-2024 14:22-0400 Diastolic Blood Pressure Non-Invasive 86 mm[Hg] CARLA MUHAMMADT DO [facility] 03-23-2024 14:22-0400 Heart rate 72 /min CARLA MUHAMMADT DO [facility] 03-23-2024 14:22-0400 Respiratory rate 16 /min CARLA MUHAMMADT DO [facility] 03-23-2024 14:22-0400 Systolic Blood Pressure Non-Invasive 119 mm[Hg] CARLA MUHAMMADT DO [facility] 01-31-2024 10:11-0400 Body height 157.5 cm Ashanti Squires PA-C Work Phone: [facility] 01-31-2024 10:11-0400 Body mass index (BMI) [Ratio] 29.81 kg/m2 Ashanti Bogner PA-C Work Phone: [facility] 01-31-2024 10:11-0400 Body temperature 97.39 [degF] Ashanti Bogner PA-C Work Phone: [facility] 01-31-2024 10:11-0400 Body weight 73.94 kg Ashanti Bogner PA-C Work Phone: [facility] 01-31-2024 10:11-0400 Diastolic blood pressure 54 mm[Hg] Ashanti Bogner PA-C Work Phone: [facility] 01-31-2024 10:11-0400 Heart rate 69 /min Ashanti Bogner PA-C Work Phone: [facility] 01-31-2024 10:11-0400 Respiratory rate 12 /min Ashanti Bogner PA-C Work Phone: [facility] 01-31-2024 10:11-0400 SaO2% (BldA) [Mass fraction] 100 % Ashanti Bogner PA-C Work Phone: [facility] 01-31-2024 10:11-0400 Systolic blood pressure 116 mm[Hg] Ashanti Bogner PA-C Work Phone: [facility] 12-28-2023 10:15-0400 Body temperature 97.2 [degF] Dr. Dacia Acosta Work Phone: [facility] 12-28-2023 10:15-0400 Diastolic blood pressure 52 mm[Hg] Dr. Dacia Acosta Work Phone: [facility] 12-28-2023 10:15-0400 Heart rate 76 /min Dr. Dacia Acosta Work Phone: [facility] 12-28-2023 10:15-0400 Respiratory rate 16 /min Dr. Dacia Acosta Work Phone: [facility] 12-28-2023 10:15-0400 SaO2% (BldA) [Mass fraction] 96 % Dr. Dacia Acosta Work Phone: [facility] 12-28-2023 10:15-0400 Systolic blood pressure 93 mm[Hg] Dr. Dacia Acosta Work Phone: [facility] 12-28-2023 08:52-0400 Body height 157.[address] Dacia Acosta Work Phone: [facility] 12-28-2023 08:52-0400 Body mass index (BMI) [Ratio] 31.4 kg/m2 Dr. Dacia Acosta Work Phone: [facility] 12-28-2023 08:52-0400 Body weight 78.[address] Dacia Acosta Work Phone: [facility] 12-13-2023 13:30-0400 Body temperature 97.9 [degF] Mervin Cristóbal REFRACTORY MIXER.COMMUNITY SERVICE OFFICER Work Phone: [facility] 12-13-2023 13:30-0400 Body weight 81.74 kg Mervin Cristóbal REFRACTORY MIXER.COMMUNITY SERVICE OFFICER Work Phone: [facility] 12-13-2023 13:30-0400 Diastolic blood pressure 62 mm[Hg] Mervin Cristóbal REFRACTORY MIXER.COMMUNITY SERVICE OFFICER Work Phone: [facility] 12-13-2023 13:30-0400 Heart rate 68 /min Mervin Cristóbal REFRACTORY MIXER.COMMUNITY SERVICE OFFICER Work Phone: [facility] 12-13-2023 13:30-0400 Respiratory rate 16 /min Mervin Cristóbal REFRACTORY MIXER.COMMUNITY SERVICE OFFICER Work Phone: [facility] 12-13-2023 13:30-0400 SaO2% (BldA) [Mass fraction] 99 % Mervinjosé Matthews REFRACTORY MIXER.COMMUNITY SERVICE OFFICER Work Phone: [facility] 12-13-2023 13:30-0400 Systolic blood pressure 91 mm[Hg] Mervin Cristóbal REFRACTORY MIXER.COMMUNITY SERVICE OFFICER Work Phone: [facility] 12-09-2023 23:39-0400 Body temperature 97.4 [degF] Dr. Dacia Acosta Work Phone: [facility] 12-09-2023 23:39-0400 Diastolic blood pressure 73 mm[Hg] Dr. Dacia Acosta Work Phone: [facility] 12-09-2023 23:39-0400 Heart rate 77 /min Dr. Dacia Acosta Work Phone: [facility] 12-09-2023 23:39-0400 Respiratory rate 16 /min Dr. Dacia Acosta Work Phone: 6(694)261-805808 [place] [address] 12-09-2023 23:39-0400 SaO2% (BldA) [Mass fraction] 100 % Dr. Dacia Acosta Work Phone: 9(725)027-460708 [place] [address] 12-09-2023 23:39-0400 Systolic blood pressure 112 mm[Hg] Dr. Dacia Acosta Work Phone: [facility] 12-09-2023 20:42-0400 Body mass index (BMI) [Ratio] 33 kg/m2 Dr. Dacia Acosta Work Phone: 5(540)021-738508 [place] [address] 12-09-2023 20:42-0400 Body weight 81.[address] Dacia Acosta Work Phone: [facility] 12-09-2023 18:49-0400 Body height 157.[address] Dacia Acosta Work Phone: [facility] 12-07-2023 14:30-0400 Body temperature 97 [degF] Dr. Dacia Acosta Work Phone: [facility] 12-07-2023 14:30-0400 Diastolic blood pressure 68 mm[Hg] Dr. Dacia Acosta Work Phone: [facility] 12-07-2023 14:30-0400 Heart rate 78 /min Dr. Dacia Acosta Work Phone: [facility] 12-07-2023 14:30-0400 Respiratory rate 16 /min Dr. Dacia Acosta Work Phone: 7(627)182-575319 [place] [address] 12-07-2023 14:30-0400 SaO2% (BldA) [Mass fraction] 99 % Dr. Dacia Acosta Work Phone: 4(449)284-225519 [place] [address] 12-07-2023 14:30-0400 Systolic blood pressure 112 mm[Hg] Dr. Dacia Acosta Work Phone: 6(569)282-370319 [place] [address] 12-07-2023 13:23-0400 Body height 157.[address] Dacia Acosta Work Phone: 3(215)032-458019 [place] [address] 12-07-2023 13:23-0400 Body weight 79.[address] Dacia Acosta Work Phone: 8(512)627-108119 [place] [address] 12-07-2023 01:38-0400 Body mass index (BMI) [Ratio] 32.1 kg/m2 Dr. Dacia Acosta Work Phone: 5(368)933-920919 [place] [address] 12-04-2023 20:10-0400 Body temperature 97.8 [degF] Dr. Dacia Acosta Work Phone: 1(761)215-486419 [place] [address] 12-04-2023 20:10-0400 Diastolic blood pressure 75 mm[Hg] Dr. Dacia Acosta Work Phone: 4(356)015-757019 [place] [address] 12-04-2023 20:10-0400 Heart rate 74 /min Dr. Dacia Acosta Work Phone: 2(810)742-958119 [place] [address] 12-04-2023 20:10-0400 Respiratory rate 20 /min Dr. Dacia Acosta Work Phone: 4(853)331-309719 [place] [address] 12-04-2023 20:10-0400 SaO2% (BldA) [Mass fraction] 100 % Dr. Dacia Acosta Work Phone: 9(108)637-026319 [place] [address] 12-04-2023 20:10-0400 Systolic blood pressure 119 mm[Hg] Dr. Dacia Acosta Work Phone: 2(198)197-468119 [place] [address] 12-04-2023 17:49-0400 Body mass index (BMI) [Ratio] 34.6 kg/m2 Dr. Dacia Acosta Work Phone: [facility] 12-04-2023 17:49-0400 Body weight 85.[address] Dacia Acosta Work Phone: [facility] 12-04-2023 16:48-0400 Body height 157.[address] Dacia Acosta Work Phone: [facility] 11-26-2023 10:27-0500 Body weight 83.37 kg Dacia Acosta MD Work Phone: [facility] 11-26-2023 10:27-0500 Diastolic blood pressure 70 mm[Hg] Dacia Acosta MD Work Phone: [facility] 11-26-2023 10:27-0500 Heart rate 90 /min Dacia Acosta MD Work Phone: [facility] 11-26-2023 10:27-0500 Respiratory rate 20 /min Dacia Acosta MD Work Phone: [facility] 11-26-2023 10:27-0500 SaO2% (BldA) [Mass fraction] 94 % Dacia Acosta MD Work Phone: [facility] 11-26-2023 10:27-0500 Systolic blood pressure 128 mm[Hg] Dacia Acosta MD Work Phone: [facility] 11-10-2023 17:45-0500 Body temperature 96.9 [degF] Dr. Dacia Acosta Work Phone: [facility] 11-10-2023 17:45-0500 Diastolic blood pressure 52 mm[Hg] Dr. Dacia Acosta Work Phone: [facility] 11-10-2023 17:45-0500 Heart rate 48 /min Dr. Dacia Acosta Work Phone: [facility] 11-10-2023 17:45-0500 Respiratory rate 14 /min Dr. Dacia Acosta Work Phone: 2(225)981-518919 [place] [address] 11-10-2023 17:45-0500 SaO2% (BldA) [Mass fraction] 95 % Dr. Dacia Acosta Work Phone: 6(010)582-944819 [place] [address] 11-10-2023 17:45-0500 Systolic blood pressure 114 mm[Hg] Dr. Dacia Acosta Work Phone: 0(884)284-785919 [place] [address] 11-10-2023 15:15-0500 Body height 157.[address] Dacia Acosta Work Phone: 7(453)944-546719 [place] [address] 11-07-2023 10:41-0500 Diastolic blood pressure 64 mm[Hg] Dr. Dacia Acosta Work Phone: 1(046)693-025519 [place] [address] 11-07-2023 10:41-0500 Heart rate 72 /min Dr. Dacia Acosta Work Phone: 7(952)849-897019 [place] [address] 11-07-2023 10:41-0500 Respiratory rate 16 /min Dr. Dacia Acosta Work Phone: 3(671)134-582119 [place] [address] 11-07-2023 10:41-0500 SaO2% (BldA) [Mass fraction] 98 % Dr. Dacia Acosta Work Phone: 1(024)699-835519 [place] [address] 11-07-2023 10:41-0500 Systolic blood pressure 127 mm[Hg] Dr. Dacia Acosta Work Phone: 6(507)372-751319 [place] [address] 11-07-2023 08:29-0500 Body mass index (BMI) [Ratio] 37.1 kg/m2 Dr. Dacia Acosta Work Phone: 4(421)702-175119 [place] [address] 11-07-2023 08:29-0500 Body weight 92.[address] Dacia Acosta Work Phone: 7(849)971-520219 [place] [address] 11-07-2023 07:23-0500 Body height 157.[address] Dacia Acosta Work Phone: 2(604)694-277919 [place] [address] 11-07-2023 07:23-0500 Body temperature 98.2 [degF] Dr. Dacia Acosta Work Phone: 9(028)526-686919 [place] [address] 11-05-2023 21:00-0500 Diastolic blood pressure 77 mm[Hg] Dr. Dacia Acosta Work Phone: 5(013)130-922619 [place] [address] 11-05-2023 21:00-0500 Heart rate 62 /min Dr. Dacia Acosta Work Phone: 9(265)224-178919 [place] [address] 11-05-2023 21:00-0500 Respiratory rate 14 /min Dr. Dacia Acosta Work Phone: 0(817)139-178719 [place] [address] 11-05-2023 21:00-0500 SaO2% (BldA) [Mass fraction] 98 % Dr. Dacia Acosta Work Phone: 9(557)708-227919 [place] [address] 11-05-2023 21:00-0500 Systolic blood pressure 131 mm[Hg] Dr. Dacia Acosta Work Phone: 5(649)962-999919 [place] [address] 11-05-2023 18:46-0500 Body height 157.[address] Dacia Acosta Work Phone: 0(758)344-836719 [place] [address] 11-05-2023 18:46-0500 Body mass index (BMI) [Ratio] 38.1 kg/m2 Dr. Dacia Acosta Work Phone: 5(793)872-041908 [place] [address] 11-05-2023 18:46-0500 Body temperature 97.1 [degF] Dr. Dacia Acosta Work Phone: 0(025)845-413108 [place] [address] 11-05-2023 18:46-0500 Body weight 94.[address] Dacia Acosta Work Phone: [facility] 11-01-2023 15:49-0500 Body temperature 97.5 [degF] Williams Athy PA-C Work Phone: [facility] 11-01-2023 15:49-0500 Body weight 92.08 kg Williams Athy PA-C Work Phone: [facility] 11-01-2023 15:49-0500 Diastolic blood pressure 86 mm[Hg] Williams Athy PA-C Work Phone: [facility] 11-01-2023 15:49-0500 Heart rate 82 /min Williams Athy PA-C Work Phone: [facility] 11-01-2023 15:49-0500 Respiratory rate 20 /min Williams Athy PA-C Work Phone: [facility] 11-01-2023 15:49-0500 SaO2% (BldA) [Mass fraction] 100 % Williams Athy PA-C Work Phone: [facility] 11-01-2023 15:49-0500 Systolic blood pressure 119 mm[Hg] Williams Athy PA-C Work Phone: [facility] 2023 08:43-0500 Body temperature 98.3 [degF] Dr. Dacia Acosta Work Phone: [facility] 2023 08:43-0500 Diastolic blood pressure 65 mm[Hg] Dr. Dacia Acosta Work Phone: [facility] 2023 08:43-0500 Heart rate 71 /min Dr. Dacia Acosta Work Phone: [facility] 2023 08:43-0500 Respiratory rate 16 /min Dr. Dacia Acosta Work Phone: [facility] 2023 08:43-0500 SaO2% (BldA) [Mass fraction] 98 % Dr. Dacia Acosta Work Phone: [facility] 2023 08:43-0500 Systolic blood pressure 121 mm[Hg] Dr. Dacia Acosta Work Phone: [facility] 10-06-2023 23:10-0500 Body height 157.[address] Dacia Acosta Work Phone: [facility] 10-06-2023 23:10-0500 Body mass index (BMI) [Ratio] 36.8 kg/m2 Dr. Dacia Acosta Work Phone: [facility] 10-06-2023 23:10-0500 Body weight 91.[address] Dacia Acosta Work Phone: [facility] 09-25-2023 00:14-0500 Diastolic blood pressure 84 mm[Hg] Dr. Dacia Acosta Work Phone: 4(099)370-603808 [place] [address] 09-25-2023 00:14-0500 Heart rate 68 /min Dr. Dacia Acosta Work Phone: 3(153)156-358208 [place] [address] 09-25-2023 00:14-0500 Respiratory rate 16 /min Dr. Dacia Acosta Work Phone: 8(945)193-806735 [address] 09-25-2023 00:14-0500 SaO2% (BldA) [Mass fraction] 100 % Dr. Dacia Acosta Work Phone: 3(797)684-356208 [place] [address] 09-25-2023 00:14-0500 Systolic blood pressure 134 mm[Hg] Dr. Dacia Acosta Work Phone: 4(788)047-074635 [address] 09-24-2023 20:43-0500 Body height 157.[address] Dacia Acosta Work Phone: 5(345)504-998135 [address] 09-24-2023 20:43-0500 Body mass index (BMI) [Ratio] 36.8 kg/m2 Dr. Dacia Acosta Work Phone: 1(143)340-911608 [place] [address] 09-24-2023 20:43-0500 Body temperature 97.8 [degF] Dr. Dacia Acosta Work Phone: [facility] 09-24-2023 20:43-0500 Body weight 91.[address] Dacia Acosta Work Phone: [facility] 09-15-2023 12:01-0500 Body mass index (BMI) [Ratio] 38.38 kg/m2 Lenny Macdonald MD Work Phone: [facility] 09-15-2023 12:01-0500 Body weight 95.21 kg Lenny Macdonald MD Work Phone: [facility] 09-15-2023 11:39-0500 Body height 157.5 cm Lenny Macdonald MD Work Phone: [facility] 09-15-2023 06:02-0500 Body temperature 97.3 [degF] Lenny Macdonald MD Work Phone: [facility] 09-15-2023 06:02-0500 Diastolic blood pressure 53 mm[Hg] Lenny Macdonald MD Work Phone: [facility] 09-15-2023 06:02-0500 Heart rate 68 /min Lenny Macdonald MD Work Phone: [facility] 09-15-2023 06:02-0500 Respiratory rate 16 /min Lenny Macdonald MD Work Phone: [facility] 09-15-2023 06:02-0500 SaO2% (BldA) [Mass fraction] 98 % Lenny Macdonald MD Work Phone: [facility] 09-15-2023 06:02-0500 Systolic blood pressure 91 mm[Hg] Lenny Macdonald MD Work Phone: [facility] 08-22-2023 17:42-0500 Body temperature 98.2 [degF] Dr. Dacia Acosta Work Phone: [facility] 08-22-2023 17:42-0500 Diastolic blood pressure 89 mm[Hg] Dr. Dacia Acosta Work Phone: [facility] 08-22-2023 17:42-0500 Heart rate 71 /min Dr. Dacia Acosta Work Phone: [facility] 08-22-2023 17:42-0500 Respiratory rate 20 /min Dr. Dacia Acosta Work Phone: [facility] 08-22-2023 17:42-0500 SaO2% (BldA) [Mass fraction] 100 % Dr. Dacia Acosta Work Phone: [facility] 08-22-2023 17:42-0500 Systolic blood pressure 131 mm[Hg] Dr. Dacia Acosta Work Phone: 2(126)729-767119 [place] [address] 08-22-2023 13:45-0500 Body temperature 97.6 [degF] Dr. Dacia Acosta Work Phone: 4(364)333-629619 [place] [address] 08-22-2023 13:45-0500 Diastolic blood pressure 77 mm[Hg] Dr. Dacia Acosta Work Phone: 4(982)713-715919 [place] [address] 08-22-2023 13:45-0500 Heart rate 71 /min Dr. Dacia Acosta Work Phone: 3(305)084-676519 [place] [address] 08-22-2023 13:45-0500 Respiratory rate 18 /min Dr. Dacia Acosta Work Phone: 7(707)038-869919 [place] [address] 08-22-2023 13:45-0500 SaO2% (BldA) [Mass fraction] 97 % Dr. Dacia Acosta Work Phone: 2(090)881-510219 [place] [address] 08-22-2023 13:45-0500 Systolic blood pressure 131 mm[Hg] Dr. Dacia Acosta Work Phone: 1(840)640-313419 [place] [address] 08-22-2023 06:55-0500 Body height 157.[address] Dacia Acosta Work Phone: 8(719)420-135519 [place] [address] 08-22-2023 06:55-0500 Body mass index (BMI) [Ratio] 37.6 kg/m2 Dr. Dacia Acosta Work Phone: 5(308)709-547419 [place] [address] 08-22-2023 06:55-0500 Body weight 93.[address] Dacia Acosta Work Phone: 4(763)001-316119 [place] [address] 08-15-2023 14:40-0500 Diastolic blood pressure 58 mm[Hg] Dr. Dacia Acosta Work Phone: 5(555)110-589119 [place] [address] 08-15-2023 14:40-0500 Heart rate 72 /min Dr. Dacia Acosta Work Phone: 1(481)784-602119 [place] [address] 08-15-2023 14:40-0500 Systolic blood pressure 117 mm[Hg] Dr. Dacia Acosta Work Phone: 1(942)447-232519 [place] [address] 08-15-2023 12:59-0500 Body mass index (BMI) [Ratio] 36.6 kg/m2 Dr. Dacia Acosta Work Phone: 0(846)575-317819 [place] [address] 08-15-2023 12:59-0500 Body temperature 97.2 [degF] Dr. Dacia Acosta Work Phone: 9(133)548-584519 [place] [address] 08-15-2023 12:59-0500 Body weight 90.[address] Dacia Acosta Work Phone: 4(533)765-383619 [place] [address] 08-15-2023 12:59-0500 Respiratory rate 16 /min Dr. Dacia Acosta Work Phone: 0(561)322-947019 [place] [address] 08-15-2023 12:59-0500 SaO2% (BldA) [Mass fraction] 100 % Dr. Dacia Acosta Work Phone: 4(313)306-014119 [place] [address] 07-22-2023 15:37-0400 Body mass index (BMI) [Ratio] 40.9 kg/m2 Dr. Dacia Acosta Work Phone: 8(493)627-284219 [place] [address] 07-22-2023 15:37-0400 Body weight 101.[address] Dacia Acosta Work Phone: 5(552)716-925219 [place] [address] 07-22-2023 15:37-0400 Diastolic blood pressure 94 mm[Hg] Dr. Dacia Acosta Work Phone: 6(522)808-941819 [place] [address] 07-22-2023 15:37-0400 Heart rate 71 /min Dr. Dacia Acosta Work Phone: 4(317)276-159319 [place] [address] 07-22-2023 15:37-0400 SaO2% (BldA) [Mass fraction] 98 % Dr. Dacia Acosta Work Phone: 4(409)789-195619 [place] [address] 07-22-2023 15:37-0400 Systolic blood pressure 134 mm[Hg] Dr. Dacia Acosta Work Phone: 6(001)692-746919 [place] [address] 07-21-2023 13:13-0400 Body temperature 98 [degF] Dr. Dacia Acosta Work Phone: 1(040)606-608519 [place] [address] 07-21-2023 13:13-0400 Diastolic blood pressure 45 mm[Hg] Dr. Dacia Acosta Work Phone: 8(271)430-575308 [place] [address] 07-21-2023 13:13-0400 Heart rate 97 /min Dr. Dacia Acosta Work Phone: 7(121)191-611319 [place] [address] 07-21-2023 13:13-0400 Respiratory rate 18 /min Dr. Dacia Acosta Work Phone: 0(872)955-985208 [place] [address] 07-21-2023 13:13-0400 SaO2% (BldA) [Mass fraction] 98 % Dr. Dacia Acosta Work Phone: 2(662)677-651608 [place] [address] 07-21-2023 13:13-0400 Systolic blood pressure 95 mm[Hg] Dr. Dacia Acosta Work Phone: 1(776)395-476319 [place] [address] 07-21-2023 06:00-0400 Body mass index (BMI) [Ratio] 40.4 kg/m2 Dr. Dacia Acosta Work Phone: 2(613)556-690508 [place] [address] 07-21-2023 06:00-0400 Body weight 99.[address] Dacia Acosta Work Phone: 7(899)745-980008 [place] [address] 07-21-2023 03:03-0400 Body height 157.[address] Dacia Acosta Work Phone: 1(286)479-786008 [place] [address] 07-20-2023 22:35-0400 Diastolic blood pressure 80 mm[Hg] [facility] 07-20-2023 22:35-0400 Heart rate 58 /min [facility] 07-20-2023 22:35-0400 Respiratory rate 16 /min [facility] 07-20-2023 22:35-0400 SaO2% (BldA) [Mass fraction] 100 % [facility] 07-20-2023 22:35-0400 Systolic blood pressure 132 mm[Hg] [facility] 07-20-2023 20:20-0400 Body temperature 97.7 [degF] [facility] 07-20-2023 16:13-0400 Body height 157.48 cm [facility] 07-20-2023 16:13-0400 Body mass index (BMI) [Ratio] 40.9 kg/m2 [facility] 07-20-2023 16:13-0400 Body weight 101.6 kg [facility] 04-25-2023 16:53-0400 Heart rate 74 /min [facility] 04-25-2023 16:53-0400 Respiratory rate 18 /min [facility] 04-25-2023 16:53-0400 SaO2% (BldA) [Mass fraction] 98 % [facility] 04-25-2023 13:53-0400 Body height 157.48 cm [facility] 04-25-2023 13:53-0400 Body mass index (BMI) [Ratio] 38.5 kg/m2 [facility] 04-25-2023 13:53-0400 Body temperature 97.3 [degF] [facility] 04-25-2023 13:53-0400 Body weight 95.39 kg [facility] 04-25-2023 13:53-0400 Diastolic blood pressure 97 mm[Hg] [facility] 04-25-2023 13:53-0400 Systolic blood pressure 133 mm[Hg] [facility] 12-02-2022 12:49-0500 Body temperature 98.29 [degF] Krislyn Aberegg PA Work Phone: [facility] 12-02-2022 12:49-0500 Body weight 94.62 kg Krislyn Aberegg PA Work Phone: [facility] 12-02-2022 12:49-0500 Diastolic blood pressure 78 mm[Hg] Krislyn Aberegg PA Work Phone: [facility] 12-02-2022 12:49-0500 Heart rate 64 /min Krislyn Aberegg PA Work Phone: [facility] 12-02-2022 12:49-0500 Respiratory rate 16 /min Krislyn Aberegg PA Work Phone: [facility] 12-02-2022 12:49-0500 SaO2% (BldA) [Mass fraction] 98 % Joselito GARCIA Work Phone: [facility] 12-02-2022 12:49-0500 Systolic blood pressure 104 mm[Hg] Joselito GARCIA Work Phone: [facility] 09-29-2022 17:56-0500 Body temperature 98.2 [degF] Lynn Prabhakar MD Work Phone: [facility] 09-29-2022 17:56-0500 Body weight 94.98 kg Lynn Prabhakar MD Work Phone: [facility] 09-29-2022 17:56-0500 Diastolic blood pressure 82 mm[Hg] Lynn Prabhakar MD Work Phone: [facility] 09-29-2022 17:56-0500 Heart rate 67 /min Lynn Prabhakar MD Work Phone: [facility] 09-29-2022 17:56-0500 Respiratory rate 20 /min Lynn Prabhakar MD Work Phone: [facility] 09-29-2022 17:56-0500 SaO2% (BldA) [Mass fraction] 99 % Lynn Prabhakar MD Work Phone: [facility] 09-29-2022 17:56-0500 Systolic blood pressure 122 mm[Hg] Lynn Prabhakar MD Work Phone: [facility] 09-15-2022 08:55-0500 Body temperature 97.8 [degF] Dr. Dacia Acosta Work Phone: [facility] Work Phone: 09-15-2022 08:55-0500 Diastolic blood pressure 88 mm[Hg] Dr. Dacia Acosta Work Phone: [facility] Work Phone: 09-15-2022 08:55-0500 Heart rate 74 /min Dr. Dacia Acosta Work Phone: [facility] Work Phone: 09-15-2022 08:55-0500 Respiratory rate 73 /min Dr. Dacia Acosta Work Phone: [facility] Work Phone: 09-15-2022 08:55-0500 SaO2% (BldA) [Mass fraction] 96 % Dr. Dacia Acosta Work Phone: [facility] Work Phone: 09-15-2022 08:55-0500 Systolic blood pressure 131 mm[Hg] Dr. Dacia Acosta Work Phone: [facility] Work Phone: 09-15-2022 07:44-0500 Body height 157.[address] Dacia Acosta Work Phone: [facility] Work Phone: 09-15-2022 07:44-0500 Body mass index (BMI) [Ratio] 35.4 kg/m2 Dr. Dacia Acosta Work Phone: [facility] Work Phone: 09-15-2022 07:44-0500 Body weight [address] Dacia Acosta Work Phone: [facility] Work Phone: 05-21-2022 13:25-0400 Body temperature 97.8 [degF] Dr. Dacia Acosta Work Phone: [facility] Work Phone: 05-21-2022 13:25-0400 Diastolic blood pressure 65 mm[Hg] Dr. Dacia Acosta Work Phone: [facility] Work Phone: 05-21-2022 13:25-0400 Heart rate 71 /min Dr. Dacia Acosta Work Phone: [facility] Work Phone: 05-21-2022 13:25-0400 Respiratory rate 16 /min Dr. Dacia Acosta Work Phone: [facility] Work Phone: 05-21-2022 13:25-0400 SaO2% (BldA) [Mass fraction] 100 % Dr. Dacia Acosta Work Phone: [facility] Work Phone: 05-21-2022 13:25-0400 Systolic blood pressure 100 mm[Hg] Dr. Dacia Acosta Work Phone: [facility] Work Phone: 05-21-2022 05:30-0400 Body weight 91.[address] Dacia Acosta Work Phone: [facility] Work Phone: 05-20-2022 13:41-0400 Body height 157.[address] Dacia Acosta Work Phone: [facility] Work Phone: 05-19-2022 22:23-0400 Body mass index (BMI) [Ratio] 36.3 kg/m2 Dr. Dacia Acosta Work Phone: [facility] Work Phone: 05-19-2022 21:52-0400 Body temperature 98 [degF] [facility] Work Phone: 05-19-2022 21:52-0400 Diastolic blood pressure 52 mm[Hg] [facility] Work Phone: 05-19-2022 21:52-0400 Heart rate 70 /min [facility] Work Phone: 05-19-2022 21:52-0400 Respiratory rate 15 /min [facility] Work Phone: 05-19-2022 21:52-0400 SaO2% (BldA) [Mass fraction] 95 % [facility] Work Phone: 05-19-2022 21:52-0400 Systolic blood pressure 118 mm[Hg] [facility] Work Phone: 05-19-2022 17:09-0400 Body height 157.48 cm [facility] Work Phone: 05-19-2022 17:09-0400 Body mass index (BMI) [Ratio] 34.7 kg/m2 [facility] Work Phone: 05-19-2022 17:09-0400 Body weight 86.18 kg [facility] Work Phone: 05-15-2022 19:35-0400 Body height 157.48 cm [facility] Work Phone: 05-15-2022 19:35-0400 Body mass index (BMI) [Ratio] 33.5 kg/m2 [facility] Work Phone: 05-15-2022 19:35-0400 Body temperature 98.4 [degF] [facility] Work Phone: 05-15-2022 19:35-0400 Body weight 83 kg [facility] Work Phone: 05-15-2022 19:35-0400 Diastolic blood pressure 89 mm[Hg] [facility] Work Phone: 05-15-2022 19:35-0400 Heart rate 81 /min [facility] Work Phone: 05-15-2022 19:35-0400 Respiratory rate 15 /min [facility] Work Phone: 05-15-2022 19:35-0400 SaO2% (BldA) [Mass fraction] 99 % [facility] Work Phone: 05-15-2022 19:35-0400 Systolic blood pressure 131 mm[Hg] [facility] Work Phone: 05-10-2022 15:42-0400 Diastolic blood pressure 96 mm[Hg] Dacia Acosta MD Work Phone: [facility] 05-10-2022 15:42-0400 Systolic blood pressure 148 mm[Hg] Dacia Acosta MD Work Phone: [facility] 05-10-2022 15:39-0400 Body weight 89.18 kg Dacia Acosta MD Work Phone: [facility] 05-10-2022 15:39-0400 Heart rate 92 /min Dacia Acosta MD Work Phone: [facility] 05-10-2022 15:39-0400 Respiratory rate 20 /min Dacia Acosta MD Work Phone: [facility] 05-09-2022 14:43-0400 Body temperature 98.6 [degF] Blanca Dawson APRN.COMMUNITY SERVICE OFFICER Work Phone: [facility] 05-09-2022 14:43-0400 Body weight 91.54 kg Blanca Dawson APRN.COMMUNITY SERVICE OFFICER Work Phone: [facility] 05-09-2022 14:43-0400 Diastolic blood pressure 74 mm[Hg] Blanca Dawson APRN.COMMUNITY SERVICE OFFICER Work Phone: [facility] 05-09-2022 14:43-0400 Heart rate 85 /min Blanca Dawson APRN.COMMUNITY SERVICE OFFICER Work Phone: [facility] 05-09-2022 14:43-0400 Respiratory rate 21 /min Blanca Dawson APRN.COMMUNITY SERVICE OFFICER Work Phone: [facility] 05-09-2022 14:43-0400 SaO2% (BldA) [Mass fraction] 99 % Blanca Dawson APRN.COMMUNITY SERVICE OFFICER Work Phone: [facility] 05-09-2022 14:43-0400 Systolic blood pressure 126 mm[Hg] Blanca Dawson APRN.COMMUNITY SERVICE OFFICER Work Phone: [facility] 03-11-2022 14:26-0400 Body weight 92.08 kg Tresa Sandoval APRN.COMMUNITY SERVICE OFFICER Work Phone: [facility] 03-11-2022 14:26-0400 Diastolic blood pressure 64 mm[Hg] Tresa Tannhof REFRACTORY MIXER.COMMUNITY SERVICE OFFICER Work Phone: [facility] 03-11-2022 14:26-0400 Heart rate 62 /min Tresa Phanf REFRACTORY MIXER.COMMUNITY SERVICE OFFICER Work Phone: [facility] 03-11-2022 14:26-0400 Respiratory rate 14 /min Tresa Phanf REFRACTORY MIXER.COMMUNITY SERVICE OFFICER Work Phone: [facility] 03-11-2022 14:26-0400 Systolic blood pressure 106 mm[Hg] Tresa Phanf REFRACTORY MIXER.COMMUNITY SERVICE OFFICER Work Phone: [facility] 01-11-2022 13:23-0400 Body temperature 97.81 [degF] Becca Singer REFRACTORY MIXER.COMMUNITY SERVICE OFFICER Work Phone: [facility] 01-11-2022 13:23-0400 Body weight 96.34 kg Becca Singer REFRACTORY MIXER.COMMUNITY SERVICE OFFICER Work Phone: [facility] 01-11-2022 13:23-0400 Diastolic blood pressure 62 mm[Hg] Becca Mckeonk REFRACTORY MIXER.COMMUNITY SERVICE OFFICER Work Phone: [facility] 01-11-2022 13:23-0400 Heart rate 65 /min Becca Mckeonk REFRACTORY MIXER.COMMUNITY SERVICE OFFICER Work Phone: [facility] 01-11-2022 13:23-0400 Respiratory rate 21 /min Becca Singer REFRACTORY MIXER.COMMUNITY SERVICE OFFICER Work Phone: [facility] 01-11-2022 13:23-0400 SaO2% (BldA) [Mass fraction] 99 % Becca Singer REFRACTORY MIXER.COMMUNITY SERVICE OFFICER Work Phone: [facility] 01-11-2022 13:23-0400 Systolic blood pressure 102 mm[Hg] Becca Singer REFRACTORY MIXER.COMMUNITY SERVICE OFFICER Work Phone: [facility] 08-04-2018 12:36-0500 Body surface area Derived from formula [facility] 08-04-2018 12:11-0500 Body surface area Derived from formula [facility] Encounters Encounter Date Encounter Type Care Provider Facility Start: 02-21-2025 End: 02-22-2025 Emergency department patient visit [facility] Work Phone: -Emergency Department Work Phone: Start: 02-08-2025 End: 02-08-2025 Emergency department patient visit [facility] Work Phone: -Emergency Department Work Phone: Start: 02-07-2025 End: 02-07-2025 ambulatory [facility] Work Phone: [facility] Work Phone: Start: 02-07-2025 End: 02-07-2025 Patient encounter procedure Tresa Sandoval REGULATORY AFFAIRS CONSULTANT-C -Laboratory [facility] Start: 02-07-2025 End: 02-07-2025 ambulatory Tresa Sandoval Facility:[facility] Start: 02-04-2025 ambulatory JUDIE~[id number] JUDIE [facility] Start: 02-04-2025 End: 02-04-2025 Emergency department patient visit [facility] Work Phone: -Emergency Department Work Phone: Start: 01-23-2025 End: 01-23-[address] Son Adams MD -[facility] Work Phone: Start: 01-23-2025 End: 01-23-2025 ambulatory [facility] Facility:[facility] Start: 01-17-2025 End: 01-17-2025 Emergency department patient visit DR BROOKLYN MIKE MD [facility] Start: 01-03-2025 ambulatory KATHARINA WELSH [facility] Start: 12-19-2024 End: 12-19-2024 ambulatory LYSSA FARRELL [facility] Start: 12-18-2024 End: 12-18-2024 ambulatory SELF~[id number] REFERRAL REFERRAL SELF [facility] Start: 12-18-2024 End: 12-18-2024 Subsequent hospital visit by physician Self Referral Work Phone: [facility] Comment on above: Visit for screening mammogram Start: 12-11-2024 ambulatory ANGE~[id number] ALEXIS MONTGOMERY [facility] Start: 12-10-2024 End: 12-13-2024 ambulatory ANGE~[id number] ALEXIS MONTGOMERY [facility] Start: 12-10-2024 End: 12-13-2024 Emergency department patient visit Leah Hector DO Work Phone: [facility] 6 Comment on above: Abdominal pain (Prim randi Dx); Ascites; Lower back pain; Cirrhosis of liver with ascites; Tobacco use disorder Start: 12-06-2024 End: 12-06-2024 [id number]: 12-06-[facility]24 End: 12-06-2024 Subsequent hospital visit by physician Max Rico MD Work Phone: [facility] Interventional Radiology Comment on above: Ascites Start: 11-29-2024 ambulatory ANGE~[id number] ALEXIS ESPINOZA [facility] Start: 11-28-2024 End: 11-28-2024 Subsequent hospital visit by physician Minda Gómez MD Work Phone: [facility] Interventional Radiology Comment on above: Ascites Start: 11-28-2024 End: 11-28-2024 ambulatory [facility] Start: 11-21-2024 ambulatory [facility] Start: 11-19-2024 End: 11-20-2024 Emergency department patient visit Lambert Gracie DO Work Phone: Emergency Department Comment on above: Viral syndrome (Prim randi Dx) Start: 11-13-2024 End: 11-13-2024 ambulatory NEEL KIKA [facility] Start: 11-09-2024 End: 11-09-2024 ambulatory ANGE~[id number] ALEXIS ESPINOZA [facility] Start: 11-08-2024 End: 11-08-2024 ambulatory ANGE~[id number] ALEXIS [facility] Start: 11-02-2024 ambulatory ANGE~[id number] ALEXIS [facility] Start: 10-30-2024 End: 10-30-2024 ambulatory NAGE~[id number] ALEXIS [facility]ERY [facility] Start: 10-30-2024 End: 10-30-2024 Subsequent hospital visit by physician Minda Gómez MD Work Phone: [facility] Interventional Radiology Comment on above: Ascites Start: 10-19-2024 ambulatory ANGE~[id number] ALEXIS [facility]TGOMERY [facility] Start: 10-18-2024 End: 10-18-2024 ambulatory MD GINGER LOREDO) YOAN [facility] Start: 10-18-2024 End: 10-18-2024 Subsequent hospital visit by physician Ginger Milton MD Work Phone: [facility] Interventional Radiology Comment on above: Ascites Start: 10-17-2024 End: 10-17-2024 ambulatory LUCAS VILLANUEVA [facility] Start: 10-15-2024 End: 10-15-2024 Telephone encounter James Hendrix MD Work Phone: [facility] [place] Start: 10-15-2024 ambulatory MD GINGER MILTON (PAUL) [facility] Start: 10-10-2024 End: 10-10-2024 Telephone encounter James Hendrix MD Work Phone: [facility] [place] Start: 2024 ambulatory JUDIE~[id number] REJI GILL JUDIE [facility] Start: 10-04-2024 End: 10-04-2024 Emergency department patient visit Pete Ponce MD Work Phone: Emergency Department Comment on above: Cirrhosis of liver ( CMS/HCC) (Primary Dx) Start: 10-03-2024 ambulatory NE DE GUZMAN [facility] Start: 10-03-2024 End: 10-03-2024 ambulatory MXA RICO [facility] Start: 10-03-2024 End: 10-03-2024 Subsequent hospital visit by physician Max Rico MD Work Phone: [facility] Interventional Radiology Comment on above: Ascites Start: 10-02-2024 ambulatory DESTINY~[id number] BEKAH GODFREY [facility] Start: 09-28-2024 End: 09-28-2024 Emergency department patient visit Pete Ponce MD Work Phone: Emergency Department Comment on above: Chronic liver diseas e and cirrhosis (CMS/HCC) (Primary Dx); Thrombocytopenia ([facility]/HCC) Start: 09-27-2024 End: 09-27-2024 ambulatory DESTINY~[id number] BEKAH GODFREY [facility] Start: 09-27-2024 End: 09-27-2024 ambulatory MD GINGER LOREDO) YOAN [facility] Start: 09-27-2024 End: 09-27-2024 Subsequent hospital visit by physician Ginger Milton MD Work Phone: [facility] Interventional Radiology Comment on above: Ascites Start: 09-20-2024 End: 09-20-2024 ambulatory [facility] Start: 09-20-2024 End: 09-20-2024 ambulatory MINDA GÓMEZ [facility] Start: 09-20-2024 End: 09-20-2024 Subsequent hospital visit by physician Minda Gómez MD Work Phone: [facility] Interventional Radiology Comment on above: Ascites Start: 09-13-2024 End: 09-13-2024 ambulatory MAX RICO [facility] Start: 09-13-2024 End: 09-13-2024 Subsequent hospital visit by physician Max Rico MD Work Phone: [facility] Inter[facility] Radiology Comment on above: Ascites Start: 09-11-2024 End: 09-11-2024 ambulatory DESTINY~[id number] GODFREY GODFREY [facility] Start: 09-05-2024 [facility] Start: 09-01-2024 End: 09-09-2024 Evaluation and management of inpatient LEAH HECTOR [facility] Start: 08-31-2024 ambulatory MD GINGER MILTON (PAUL) [facility] Start: 08-30-2024 End: 08-30-2024 ambulatory MINDA [facility] Start: 08-30-2024 End: 08-30-2024 Subsequent hospital visit by physician Minda Gómez MD Work Phone: [facility] Interventional Radiology Comment on above: Ascites Start: 08-22-2024 End: 08-22-2024 Evaluation and management of inpatient [facility] Start: 08-22-2024 End: 08-22-2024 ambulatory MAX [facility] Start: 08-22-2024 End: 08-22-2024 Subsequent hospital visit by physician Max Rico MD Work Phone: [facility] Interventional Radiology Comment on above: Ascites Start: 08-16-2024 End: 08-16-2024 ambulatory MD GINGER MILTON (PAUL) [facility] Start: 08-16-2024 End: 08-16-2024 Subsequent hospital visit by physician Ginger Milton MD Work Phone: [facility] Interventional Radiology Comment on above: Ascites Start: 08-13-2024 ambulatory MD GINGER MILTON (PAUL) [facility] Start: 08-09-2024 End: 08-09-2024 ambulatory MINDA [facility] Start: 08-09-2024 End: 08-09-2024 Subsequent hospital visit by physician Minda Gómez MD Work Phone: [facility] Inter[facility] Radiology Comment on above: Ascites Start: 08-08-2024 End: 08-08-2024 ambulatory JOSE ALEJANDRO [facility] Start: 08-02-2024 End: 08-02-2024 Subsequent hospital visit by physician Ginger Milton MD Work Phone: [facility] [place] Interventional Radiology Comment on above: Ascites Start: 08-02-2024 End: 08-02-2024 ambulatory MD GINGER LOREDO) YOAN [facility] Start: 07-27-2024 ambulatory MARCELINA KRISTIN [facility] Start: 07-26-2024 ambulatory MD GINGER LOREDO) YOAN [facility] Start: 07-26-2024 End: 07-26-2024 Emergency department patient visit Pete Ponce MD Work Phone: Emergency Department Comment on above: Alcoholic cirrhosis of liver with ascites (CMS/HCC) (Primary Dx) Start: 07-25-2024 ambulatory KATHARINA [facility] Start: 07-25-2024 End: 07-25-2024 ambulatory [facility] Start: 07-19-2024 End: 07-19-2024 ambulatory [facility] Start: 07-19-2024 End: 07-19-2024 Subsequent hospital visit by physician Minda Gómez MD Work Phone: [facility] Comment on above: Ascites Start: 07-17-2024 ambulatory MINDA [facility] Start: 07-08-2024 End: 07-10-2024 ambulatory PROVIDER EXTERNAL [facility] Start: 07-08-2024 End: 07-10-2024 Emergency department patient visit Lambert Veliz DO Work Phone: General Medicine Comment on above: Ascites (Primary Dx) ; Amphetamine-type substance use disorder, severe (CMS/HCC) Start: 07-08-2024 ambulatory INFECTION CONTROL [facility] Start: 07-06-2024 ambulatory MINDA [facility] Start: 07-05-2024 End: 07-05-2024 Emergency department patient visit Pete Ponce MD Work Phone: Emergency Department Comment on above: Cirrhosis of liver ( CMS/HCC) (Primary Dx) Start: 07-02-2024 End: 07-02-2024 Emergency department patient visit Pete Ponce MD Work Phone: Emergency Department Comment on above: Alcoholic cirrhosis of liver with ascites (CMS/HCC) (Primary Dx); Chronic hepatitis C with cirrhosis (CMS/HCC) Start: 06-22-2024 End: 06-22-2024 ambulatory [facility] Facility[facility] Start: 06-15-2024 ambulatory [facility] Facility:[facility] Start: 06-15-2024 End: 06-19-2024 Evaluation and management of inpatient [facility] Facility:[facility] Start: 06-13-2024 ambulatory [facility] Facility:[facility] Start: 06-11-2024 ambulatory [facility] Facility:[facility] Start: 06-08-2024 End: 06-08-2024 Emergency department patient visit [facility] Facility:[facility] Start: 06-07-2024 End: 06-07-2024 Emergency department patient visit [facility] Facility:[facility] Start: 06-06-2024 End: 06-06-2024 Emergency department patient visit [facility] Facility:[facility] Start: 06-04-2024 Emergency department patient visit [facility] Facility:[facility] Start: 06-01-2024 End: 06-01-2024 Telephone encounter No Pcp REFRACTORY MIXER [facility] Comment on above: Patient Update Results Start: 05-31-2024 End: 05-31-2024 ambulatory Katelyn Parmar [facility] Start: 05-31-2024 End: 05-31-2024 Follow-up encounter Katelyn Parmar [facility] Comment on above: SPP Hepatology - Fol low-up (HCV+ lab test) Start: 05-30-2024 ambulatory Dacia Maxwellabelardo Facilit y:[facility] Start: 05-30-2024 End: 05-31-2024 Evaluation and management of inpatient Dacia [facility] Facility: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 Start: 05-22-2024 End: 05-22-2024 Telephone encounter Dacia Acosta MD Work Phone: [facility] Comment on above: Lost medications Start: 05-17-2024 End: 05-21-2024 Evaluation and management of inpatient [facility] Facility:[facility] Start: 05-17-2024 End: 05-17-2024 ambulatory Dacia Acosta MD Work Phone: [facility] Comment on above: [facility] Start: 05-15-2024 End: 05-15-2024 Chart abstracting Erik Woods DO Work Phone: Hematology/Oncology Start: 05-15-2024 End: 05-15-2024 Telephone encounter Krishna Lara APRN.COMMUNITY SERVICE OFFICER Work Phone: [facility] Comment on above: Results Start: 05-14-2024 End: 05-14-2024 ambulatory Nagapradee Nagajothi Facility:[facility] Start: 05-13-2024 ambulatory [facility] Facilit y:[facility] Start: 05-13-2024 End: 05-15-2024 Evaluation and management of inpatient [facility] Facility:[facility] Start: 05-11-2024 Telephone encounter Krishna jeffries APRN.COMMUNITY SERVICE OFFICER Work Phone: [facility] Comment on above: Results Start: 05-11-2024 End: 05-11-2024 Emergency department patient visit [facility] Facility:[facility] Start: 05-10-2024 End: 05-10-2024 Subsequent hospital visit by physician [facility] (I-Stat) Work Phone: Cat Scan Start: 05-10-2024 ambulatory KRISHNA LARA Facilit y:[facility] Start: 05-10-2024 End: 05-10-2024 Patient encounter procedure Krishna Lara APRN.COMMUNITY SERVICE OFFICER Work Phone: [facility] Comment on above: Diarrhea, unspecifie d type (Primary Dx); Kidney stone; Acute cystitis without hematuria; Cirrhosis of liver with ascites, unspecified hepatic cirrhosis type (HCC) (HCC); Possible exposure to STD; History of abnormal cervical Pap smear Start: 05-10-2024 End: 05-10-2024 ambulatory KRISHNA LARA Facility:[facility] Start: 05-09-2024 Telephone encounter Lynn Kohler MD Work Phone: [facility] [place] [facility] Comment on above: Results (Urine Cx mi xed) Start: 05-07-2024 End: 05-07-2024 ambulatory [facility] Facility:[facility] Start: 05-07-2024 End: 05-07-2024 Patient encounter procedure Danny Dowling APRN.COMMUNITY SERVICE OFFICER Work Phone: [facility] [place] [facility] Comment on above: Urinary frequency (P rimary Dx); Acute cystitis with hematuria; Abrasion of foot with infection, unspecified laterality, initial encounter; Skin lesion Start: 05-02-2024 Telephone encounter Dacia randhawa MD Work Phone: Family [facility] Comment on above: Medication Question Start: 04-27-2024 Telephone encounter Franky culver MD Work Phone: Hematology/Oncology Start: 04-24-2024 End: 04-25-2024 Emergency department patient visit Shon Quintero Facility:[facility] Start: 04-20-2024 End: 04-20-2024 Transitional care manage srvc 7 day discharge Mervin Matthews APRN.COMMUNITY SERVICE OFFICER Work Phone: [facility] Comment on above: Kidney stone (Primar y Dx); Acute cystitis without hematuria; Cirrhosis of liver with ascites, unspecified hepatic cirrhosis type (HCC) (HCC); Thrombocytopenia (HCC); Seasonal allergic rhinitis due to pollen Start: 04-20-2024 End: 04-20-2024 ambulatory [facility] Facility:[facility] Start: 04-17-2024 Patient Outreach Ne fisher LPN [facility] Comment on above: Transition Of Care ( [facility] D/C 04/13/2024) Start: 04-11-2024 ambulatory Oscar Robledo Facili ty:[facility] Start: 04-11-2024 End: 04-13-2024 Evaluation and management of inpatient Oscar Robledo Facility:[facility] Start: 03-23-2024 End: 03-23-2024 Emergency department patient visit CARLA MITCHELL DO [facility] Start: 03-09-2024 End: 03-09-2024 ambulatory Daica Acosta Facility:[facility] Start: 03-08-2024 ambulatory Dacia Jeff y:[facility] Start: 03-08-2024 End: 03-08-2024 ambulatory Marcelina Porras Facility:[facility] Start: 02-29-2024 ambulatory Dacia brown MD Work Phone: Internal Medicine [place] [id number] Start: 02-07-2024 End: 02-07-2024 [facility] Start: 02-07-2024 End: 02-07-2024 Patient encounter procedure Melisa Thayer MD Work Phone: [facility] [place] Comment on above: Skin ulcer, limited to breakdown of skin (HCC) (Primary Dx); Excoriation (skin-picking) disorder; MRSA (methicillin resistant Staphylococcus aureus); Local infection of skin and subcutaneous tissue Start: 02-06-2024 ambulatory Dacia brown MD Work Phone: Family [facility] Comment on above: Hematuria Start: 02-02-2024 Telephone encounter Ashanti Squires PA-C Work Phone: Family [facility] [place] Comment on above: Results Start: 01-31-2024 End: 01-31-2024 ambulatory DACIA ACOSTA Facility:[facility] Start: 01-31-2024 End: 01-31-2024 Office outpatient visit 25 minutes Ashanti Squires PA-C Work Phone: Family [facility] [place] Comment on above: Skin sore (Primary D x); Gross hematuria; Acute cystitis with hematuria; Anxiety with depression Start: 01-19-2024 Refill Dacia brown MD Work Phone: Family [facility] [place] Comment on above: Refill Request Start: 12-28-2023 End: 12-28-[address] Dacia Acosta Work Phone: [facility] Work Phone: Start: 12-28-2023 End: 12-28-2023 Dr. Dacia Acosta Work Phone: [facility]-Endoscopy Work Phone: Start: 12-13-2023 End: 12-13-2023 ambulatory DACIA ACOSTA Facility:[facility] Start: 12-13-2023 End: 12-13-2023 Office outpatient visit 15 minutes Mervin Matthews APRN.CNP Work Phone: [facility] Comment on above: Chronic hepatitis C without hepatic coma (HCC) (Primary Dx); Cirrhosis of liver with ascites, unspecified hepatic cirrhosis type (HCC) (HCC); Other ascites; Nausea and vomiting, unspecified vomiting type Start: 12-12-2023 Telephone encounter Dacia randhawa MD Work Phone: [facility] Comment on above: Appointment; Patient Update Start: 12-09-2023 End: 12-09-2023 Emergency department patient visit Dr. Dacia Acosta Work Phone: [facility] Work Phone: Start: 12-09-2023 End: 12-09-2023 Dr. Dacia Acosta Work Phone: [facility]-Emergency Department Work Phone: Start: 12-07-2023 Dr. Dacia zhou Work Phone: [facility] Work Phone: Start: 12-07-2023 ambulatory Priscilla hoffman RN Work Phone: [employer] Start: 12-07-2023 Dr. Dacia zhou Work Phone: [facility] Start: 12-06-2023 Dr. Dacia zhou Work Phone: [facility] Work Phone: Start: 12-06-2023 Dr. Dacia zhou Work Phone: [facility] Start: 12-05-2023 Dr. Dacia zhou Work Phone: [facility] Start: 12-05-2023 Dr. Dacia zhou Work Phone: [facility] Start: 12-04-2023 End: 12-07-2023 Evaluation and management of inpatient Dr. Dacia Acosta Work Phone: [facility] Care Unit Work Phone: Start: 12-04-2023 End: 12-07-2023 Dr. Dacia Acosta Work Phone: [facility] Unit Work Phone: Start: 11-28-2023 Telephone encounter Dacia randhawa MD Work Phone: [facility] Comment on above: Results Start: 11-26-2023 End: 11-26-2023 ambulatory DACIA ACOSTA Facility:[facility] Start: 11-26-2023 End: 11-26-2023 Patient encounter procedure Dacia Acosta MD Work Phone: [facility] Comment on above: Cirrhosis of liver w ith ascites, unspecified hepatic cirrhosis type (HCC) (HCC) (Primary Dx); Recurrent UTI (urinary tract infection); Chronic hepatitis C without hepatic coma (HCC); Nicotine use disorder, F17.2; Gastroesophageal reflux disease, unspecified whether esophagitis present; Major depressive disorder, remission status unspecified, unspecified whether recurrent Start: 11-25-2023 ambulatory Priscilla hoffman RN Work Phone: [employer] Start: 11-24-2023 Patient Outreach Soco johnson [facility] Work Phone: Pharmacy Comment on above: Transition Of Care ( [facility] Pharmacy-Hospital discharge 11/23/23) Start: 11-18-2023 End: 11-23-2023 Evaluation and management of inpatient KOKO RUIZ Facility:[id number] Start: 11-17-2023 End: 11-18-2023 Emergency department patient visit DACIA ACOSTA Facility:[facility] Start: 11-11-2023 Telephone encounter Dacia randhawa MD Work Phone: [facility] Comment on above: Patient Update Start: 11-10-2023 End: 11-10-2023 Emergency department patient visit Dr. Dacia Acosta Work Phone: [facility] Work Phone: Start: 11-10-2023 End: 11-10-2023 Dr. Dacia Acosta Work Phone: [facility]-Emergency Department Work Phone: Start: 11-07-2023 Telephone encounter Dacia randhawa MD Work Phone: [facility] Comment on above: Abdominal Pain Start: 11-07-2023 End: 11-07-2023 Emergency department patient visit Dr. Dacia Acosta Work Phone: [facility]Emergency [facility] Work Phone: Start: 11-07-2023 End: 11-07-2023 Dr. Dacia Acosta Work Phone: [facility]Emergency Department Work Phone: Start: 11-05-2023 End: 11-05-2023 Emergency department patient visit [facility] Start: 11-05-2023 End: 11-05-2023 Dr. Dacia Acosta Work Phone: [facility]Emergency Department Work Phone: Start: 11-03-2023 Telephone encounter Dacia randhawa MD Work Phone: [facility] Comment on above: Patient Question Start: 11-01-2023 End: 11-01-2023 ambulatory DACAI ACOSTA Facility:[facility] Start: 11-01-2023 End: 11-01-2023 Patient encounter procedure Williams Salvador PA-C Work Phone: [facility] Comment on above: Open wound of skin ( Primary Dx) Start: 2023 Non-patient / Non-visit Dr. Herlinda Acosta Work Phone: [facility] Work Phone: Start: 2023 Dr. Dacia zhou Work Phone: [facility] Work Phone: Start: 10-07-2023 End: 2023 Evaluation and management of inpatient Dr. Dacia Acosta Work Phone: [facility] Work Phone: Start: 10-07-2023 Non-patient / Non-visit Dr. Herlinda Acosta Work Phone: [facility] Work Phone: Start: 10-07-2023 Dr. Dacia zhou Work Phone: [facility] Work Phone: Start: 10-06-2023 End: 2023 Evaluation and management of inpatient Dr. Dacia Acosta Work Phone: [facility] Work Phone: Start: 10-06-2023 Non-patient / Non-visit Dr. Herlinda Acosta Work Phone: [facility] Work Phone: Start: 10-06-2023 End: 2023 Dr. Dacia Acosta Work Phone: [facility] Work Phone: Start: 09-24-2023 End: 09-25-2023 Emergency department patient visit Dr. Dacia Acosta Work Phone: [facility]Emergency Department Work Phone: Start: 09-24-2023 End: 09-25-2023 Dr. Dacia Acosta Work Phone: [facility] Work Phone: Start: 09-16-2023 Telephone encounter Emperatriz Chacon [facility] Clinical Communication Start: 09-09-2023 End: 09-15-2023 Evaluation and management of inpatient [facility] Start: 09-09-2023 End: 09-15-2023 Evaluation and management of inpatient Lenny Macdonald MD Work Phone: [facility] Respiratory Unit 7W Comment on above: Small bowel obstruct ion (HCC) (Primary Dx) Start: 08-22-2023 End: 08-22-2023 Emergency department patient visit Dr. Dacia Acosta Work Phone: [facility]Emergency Department Work Phone: Start: 08-22-2023 End: 08-22-2023 Dr. Dacia Acosta Work Phone: [facility]Emergency Department Work Phone: Start: 08-15-2023 Non-patient / Non-visit Dr. Herlinda Acosta Work Phone: [facility] Start: 08-15-2023 Dr. Dacia zhou Work Phone: [facility] Start: 08-15-2023 End: 08-15-[address] Dacia Acosta Work Phone: [facility] Work Phone: Start: 08-15-2023 End: 08-15-[address] Dacia Acosta Work Phone: [facility]-Ultrasound, [facility] Work Phone: Start: 08-15-2023 End: 08-15-2023 Dr. Dacia Acosta Work Phone: [facility]-Ultrasound, [facility] Work Phone: Start: 07-22-2023 End: 07-22-[address] Dacia Acosta Work Phone: [facility] Gastroenterology Work Phone: Start: 07-22-2023 End: 07-22-2023 Dr. Dacia Acosta Work Phone: [facility] Gastroenterology Work Phone: Start: 07-21-2023 Non-patient / Non-[facility] Start: 07-21-2023 [facility] Start: 07-21-2023 Non-patient / Non-visit Dr. Herlinda Acosta Work Phone: [facility] Work Phone: Start: 07-21-2023 Dr. Dacia zhou Work Phone: [facility] Work Phone: Start: 07-20-2023 End: 07-21-2023 [facility]: Start: 07-20-2023 End: 07-21-[address] Dacia Acosta Work Phone: [facility] Work Phone: Start: 07-20-2023 End: 07-21-2023 Dr. [facility] Work [facility]: Start: 04-25-2023 End: 04-25-2023 [facility] Start: 03-22-2023 Refill Dacia brown MD Work Phone: [facility] [place] Comment on above: Refill Request Start: 01-27-2023 Telephone encounter Dacia randhawa MD Work Phone: [facility] [place] Comment on above: Medication Request Start: 01-25-2023 Documentation procedure Mammog uriel Coordinator [facility] Start: 01-25-2023 Letter encounter Mammography Coordinator [facility] Department Start: 01-25-2023 Telephone encounter Divya andino MD Work Phone: Mammography Comment on above: Mammogram Result Pete l Back Start: 01-24-2023 End: 01-24-2023 Subsequent hospital visit by physician [facility] Comment on above: Encounter for screen ing mammogram for breast cancer [Z12.31] Start: 12-02-2022 End: 12-02-2022 Patient encounter procedure Joselito Pham PA Work Phone: [facility] Comment on above: Skin infection (Prim randi Dx) Start: 10-02-2022 Telephone encounter Kaylin Guerrero ggs REFRACTORY MIXER.COMMUNITY SERVICE OFFICER Work Phone: [facility] Comment on above: Results Start: 09-29-2022 End: 09-29-2022 Patient encounter procedure Lynn Prabhakar MD Work Phone: [facility] Comment on above: Cellulitis of chin ( Primary Dx); Picking own skin; URI, acute Start: 09-15-2022 End: 09-15-[address] Dacia Acosta Work Phone: [facility] Work Phone: Comment on above: Population Health Na vigation Outreach (HCC Gap/Medicaid) Start: 09-15-2022 Non-patient / Non-visit Dr. Herlinda Acosta Work Phone: [facility] Start: 09-15-2022 End: 09-15-2022 Admission to same day surgery center Dr. Dacia Acosta Work Phone: [facility]-Endoscopy Start: 08-27-2022 End: 08-27-[address] Dacia Acosta Work Phone: [facility] Work Phone: Start: 08-27-2022 End: 08-27-[address] Dacia Acosta Work Phone: [facility]-Laboratory Start: 08-27-2022 End: 08-27-[address] Dacia Acosta Work Phone: [facility] Gastroenterology Start: 06-22-2022 Refill Tresa Sandoval APRN.COMMUNITY SERVICE OFFICER Work Phone: [facility] Comment on above: Refill Request Start: 05-24-2022 ambulatory Dacia brown MD Work Phone: [facility] Start: 05-24-2022 Telephone encounter Dacia randhawa MD Work Phone: [facility] Comment on above: er follow up cristian layne Transition Of Care Start: 05-21-2022 Non-patient / Non-visit Dr. Herlinda Acosta Work Phone: [facility] Inpatient Physicians Start: 05-20-2022 Non-patient / Non-visit Dr. Herlinda Acosta Work Phone: [facility] Inpatient Physicians Start: 05-19-2022 End: 05-21-2022 Evaluation and management of inpatient [facility]-Medical Surgical 3 Start: 05-15-2022 End: 05-15-2022 Emergency department patient visit [facility]-Emergency Department Start: 05-15-2022 ambulatory Diya Feliciano RN NURSE O N CALL Comment on above: Abscess; Headache Start: 05-10-2022 End: 05-10-2022 Patient encounter procedure Dacia Acosta MD Work Phone: [facility] Comment on above: Dermatitis (Primary Dx) Start: 05-09-2022 End: 05-09-2022 Patient encounter procedure Blanca Dawson APRN.COMMUNITY SERVICE OFFICER Work Phone: [facility] Comment on above: Wound check, abscess (Primary Dx) Start: 05-07-2022 Telephone encounter Hugo santana PA-C Work Phone: [facility] Comment on above: Patient Question Start: 03-24-2022 ambulatory Dacia brown MD Work Phone: [facility] [place] Start: 03-11-2022 End: 03-11-2022 Patient encounter procedure Tresa Sandoval REFRACTORY MIXER.COMMUNITY SERVICE OFFICER Work Phone: [facility] Comment on above: Bacterial skin infec tion (Primary Dx); Acne vulgaris; Chronic midline low back pain with bilateral sciatica Start: 03-11-2022 Telephone encounter Dacia randhawa MD Work Phone: [facility] Comment on above: Refill Request Start: 01-12-2022 Telephone encounter Blanca Dawson APRN.COMMUNITY SERVICE OFFICER Work Phone: [facility] Comment on above: Results Start: 01-11-2022 End: 01-11-2022 Patient encounter procedure Becca Singer REFRACTORY MIXER.COMMUNITY SERVICE OFFICER Work Phone: [facility] Comment on above: Viral illness (Prima ry Dx) Start: 08-04-2018 End: 08-04-2018 Patient encounter procedure [facility] Procedures Date Procedure Procedure Detail Performing Clinician Start: 02-22-2025 Estimated creatinine clearance [facility] Work Phone: Start: 02-21-2025 CT of abdomen and pelvis without contrast [facility] Work Phone: Start: 02-21-2025 X-ray of chest, PA and lateral views [facility] Work Phone: Start: 02-04-2025 Computed tomography of abdomen and pelvis with intravenous contrast [facility] Work Phone: Start: 02-04-2025 Estimated creatinine clearance [facility] Work Phone: Start: 12-18-2024 Screening mammography bi 2-view breast inc cad Self Referral Work Phone: Start: 03-25-2025 Mammography MD GINGER MILTON (PAUL) Start: 12-13-2024 CBC W/DIFFERENTIAL Tommie New MD Work Phone: Start: 12-13-2024 Comprehensive metabolic 2000 panel - Serum or Plasma Tommie New MD Work Phone: Start: 12-12-2024 Mri abdomen w/o & w/contrast material Lyssa Farrell REFRACTORY MIXER Work Phone: Start: 12-12-2024 CBC W/DIFFERENTIAL Tommie New MD Work Phone: Start: 12-12-2024 Comprehensive metabolic 2000 panel - Serum or Plasma Tommie New MD Work Phone: Start: 12-11-2024 Radex spine lumbosacral 2/3 views Isabella Ch MD Work Phone: Start: 12-11-2024 Comprehensive metabolic 2000 panel - Serum or Plasma Tommie New MD Work Phone: Start: 12-11-2024 CBC W/DIFFERENTIAL Tommie New MD Work Phone: Start: 12-10-2024 UA FOR INFECTION (REFLEX CULTURE) Kesha dominic Hector DO Work Phone: Start: 12-10-2024 Us abdominal real time w/image limited Miranda Marques REFRACTORY MIXER Work Phone: Start: 12-10-2024 Abdom paracentesis dx/ther w/imaging guidance Ginger Milton MD Work Phone: Start: 12-10-2024 ALBUMIN, BODY FLUID Ginger Milton MD Work Phone: Start: 12-10-2024 CULTURE, FLUID Ginger Milton MD Work Phone: Start: 12-10-2024 FLUID CELL COUNT Ginger Milton MD Work Phone: Start: 12-10-2024 GLUCOSE BODY FLUID Ginger Milton MD Work Phone: Start: 12-10-2024 LDH, FLUID Ginger Milton MD Work Phone: Start: 12-10-2024 NON HOME CHILD CARE PROVIDER CASES Ginger Milton MD Work Phone: Start: 12-10-2024 PROTEIN BODY FLUID Ginger Milton MD Work Phone: Start: 12-10-2024 Glucose [Mass/volume] in Serum or Plasma Leah Simeoncker DO Work Phone: Start: 12-10-2024 AFP SERUM TUMOR MARKER Miranda Marques APR N Work Phone: Start: 12-10-2024 Ammonia [Mass/volume] in Plasma Tommie New MD Work Phone: Start: 12-10-2024 CBC W/DIFFERENTIAL Tommie New MD Work Phone: Start: 12-10-2024 Comprehensive metabolic 2000 panel - Serum or Plasma Tommie New MD Work Phone: Start: 12-10-2024 PT and aPTT panel - Platelet poor plasma by Coagulation assay Tommie New MD Work Phone: Start: 12-10-2024 BLOOD CULTURE, PERIPHERAL Tommie New MD Work Phone: Start: 12-10-2024 Comprehensive metabolic 2000 panel - Serum or Plasma Leah Simeoncker DO Work Phone: Start: 12-10-2024 LACTIC ACID, VENOUS Leah Mackenzieer DO Work Phone: Start: 12-10-2024 Lipase [Enzymatic activity/volume] in Serum or Plasma Leah Simeoncker DO Work Phone: Start: 12-10-2024 PROCALCITONIN, QN, S Leah Mackenzieer D O Work Phone: Start: 12-10-2024 Basic metabolic 2000 panel - Serum or Plasma Leah Simeoncker DO Work Phone: Start: 12-10-2024 CBC W/DIFFERENTIAL Bridgetith F Krunal DO Work Phone: Start: 12-10-2024 CK Leah Simeoncker DO Work Phone: Start: 12-06-2024 PARACENTESIS Max Rico MD Work Phone: Start: 11-19-2024 CBC W/DIFFERENTIAL Lambert Veliz DO Work Phone: Start: 11-19-2024 Comprehensive metabolic 2000 panel - Serum or Plasma Lambert Veliz DO Work Phone: Start: 11-19-2024 PROCALCITONIN, QN, S Lambert Veliz DO Work Phone: Start: 11-19-2024 Radiologic exam chest 2 views Lambert montgomerylincarolann DO Work Phone: Start: 10-04-2024 Radiologic exam abdomen 2 views Pete rizo MD Work Phone: Start: 10-04-2024 Comprehensive metabolic 1999 panel - Serum or Plasma Pete Ponce MD Work Phone: Start: 10-04-2024 CBC W/DIFFERENTIAL Pete Ponce MD Work Phone: Start: 10-04-2024 Lipase [Enzymatic activity/volume] in Serum or Plasma Pete Ponce MD Work Phone: Start: 10-03-2024 PARACENTESIS Max Rico MD Work Phone: Start: 09-28-2024 Ammonia [Mass/volume] in Plasma Pete rizo MD Work Phone: Start: 09-28-2024 CBC W/DIFFERENTIAL Pete Ponce MD Work Phone: Start: 09-28-2024 Comprehensive metabolic 2000 panel - Serum or Plasma Pete Ponce MD Work Phone: Start: 09-28-2024 LACTIC ACID, VENOUS Pete Ponce MD Work Phone: Start: 09-28-2024 PROCALCITONIN, QN, S Pete Ponce MD Work Phone: Start: 09-28-2024 PT and aPTT panel - Platelet poor plasma by Coagulation assay Pete Ponce MD Work Phone: Start: 09-28-2024 TROPONIN I, HS, BASELINE Pete Connelly Work Phone: Start: 09-28-2024 Ecg routine ecg w/least 12 lds trcg only w/o i&r Pete Ponce MD Work Phone: Start: 09-28-2024 Glucose [Mass/volume] in Serum or Plasma Pete Ponce MD Work Phone: Start: 09-27-2024 PARACENTESIS Ginger Milton MD Work Phone: Start: 09-13-2024 PARACENTESIS Max Rico MD Work Phone: Start: 08-22-2024 PARACENTESIS Max Rico MD Work Phone: Start: 08-16-2024 PARACENTESIS Ginger Milton MD Work Phone: Start: 07-26-2024 PARACENTESIS Max Rico MD Work Phone: Start: 07-26-2024 CBC W/DIFFERENTIAL Pete Ponce MD Work Phone: Start: 07-26-2024 Comprehensive metabolic 2000 panel - Serum or Plasma Pete Ponce MD Work Phone: Start: 07-26-2024 PT and aPTT panel - Platelet poor plasma by Coagulation assay Pete Ponce MD Work Phone: Start: 07-10-2024 CBC W/DIFFERENTIAL River Arguelles MD Work Phone: Start: 07-10-2024 Comprehensive metabolic 2000 panel - Serum or Plasma River Arguelles MD Work Phone: Start: 07-09-2024 RAPID TOX SCREEN, URINE ([facility]) Elena Arevalo MD Work Phone: Start: 07-09-2024 Abdom paracentesis dx/ther w/imaging guidance Ginger Milton MD Work Phone: Start: 07-09-2024 ALBUMIN, BODY FLUID Ginger Milton MD Work Phone: Start: 07-09-2024 CULTURE, FLUID Ginger Milton MD Work Phone: Start: 07-09-2024 FLUID CELL COUNT Ginger Milton MD Work Phone: Start: 07-09-2024 GLUCOSE BODY FLUID Ginger Milton MD Work Phone: Start: 07-09-2024 LDH, FLUID Ginger Milton MD Work Phone: Start: 07-09-2024 PH BODY FLUID Ginger Milton MD Work Phone: Start: 07-09-2024 PROTEIN BODY FLUID Ginger Milton MD Work Phone: Start: 07-09-2024 CBC W/DIFFERENTIAL River Arguelles MD Work Phone: Start: 07-09-2024 Comprehensive metabolic 2000 panel - Serum or Plasma River Arguelles MD Work Phone: Start: 07-08-2024 CBC W/DIFFERENTIAL Lambert Veliz DO Work Phone: Start: 07-08-2024 Comprehensive metabolic 2000 panel - Serum or Plasma Lambert Veliz DO Work Phone: Start: 07-08-2024 PT and aPTT panel - Platelet poor plasma by Coagulation assay Lambert Veliz DO Work Phone: Start: 07-05-2024 CBC W/DIFFERENTIAL Pete Ponce MD Work Phone: Start: 07-05-2024 Acute hepatitis panel Pete Ponce MD Work Phone: Start: 07-05-2024 Comprehensive metabolic 2000 panel - Serum or Plasma Pete Ponce MD Work Phone: Start: 07-05-2024 PT and aPTT panel - Platelet poor plasma by Coagulation assay Pete Ponce MD Work Phone: Start: 07-02-2024 PARACENTESIS Max Rico MD Work Phone: Start: 07-02-2024 ALBUMIN, BODY FLUID Max Rico MD Work Phone: Start: 07-02-2024 FLUID CELL COUNT Max Rico MD Work Phone: Start: 07-02-2024 GLUCOSE BODY FLUID Max Rico MD Work Phone: Start: 07-02-2024 LDH, FLUID Max Rico MD Work Phone: Start: 07-02-2024 PH BODY FLUID Max Rico MD Work Phone: Start: 07-02-2024 PROTEIN BODY FLUID Max Rico MD Work Phone: Start: 07-02-2024 Acute hepatitis panel Pete Ponce MD Work Phone: Start: 07-02-2024 CBC W/DIFFERENTIAL Pete Ponce MD Work Phone: Start: 07-02-2024 Comprehensive metabolic 2000 panel - Serum or Plasma Pete Ponce MD Work Phone: Start: 07-02-2024 Lipase [Enzymatic activity/volume] in Serum or Plasma Pete Ponce MD Work Phone: Start: 07-02-2024 PT and aPTT panel - Platelet poor plasma by Coagulation assay Pete Ponce MD Work Phone: Start: 05-10-2024 Urnls dip stick/tablet rgnt auto w/o microscopy Krishna Lara APRN.COMMUNITY SERVICE OFFICER Work Phone: Start: 05-07-2024 Urnls dip stick/tablet rgnt auto w/o microscopy Blanca Dawson APRN.COMMUNITY SERVICE OFFICER Work Phone: Start: 01-31-2024 End: 01-31-2024 Cul bact xcpt urine blood/stool aerobic isol Ashanti Squires PA-C Work Phone: Start: 01-31-2024 Urnls dip stick/tablet rgnt auto w/o microscopy Ashanti Squires PA-C Work Phone: Start: 12-28-[address] Dacia herbert Work Phone: Start: 12-09-2023 Diagnostic radiography of abdomen Dr. Herlinda Acosta Work Phone: Start: 12-05-[address] Dacia randhawa Work Phone: Start: 12-05-2023 Investigation of transfusion reaction Dr. Dacia Acosta Work Phone: Start: 12-05-2023 Dr. Dacia Acosta Work Phone: Start: 12-05-[address] Dacia Acosta Work Phone: Start: 12-04-2023 Computed tomography of abdomen and pelvis with intravenous contrast Dr. Dacia Acosta Work Phone: Start: 11-10-2023 Computed tomography of abdomen and pelvis with intravenous contrast Dr. Dacia Acosta Work Phone: Start: 11-07-[address] Dacia randhawa Work Phone: Start: 11-07-[address] Dacia Acosta Work Phone: Start: 11-07-2023 Investigation of transfusion reaction Dr. Dacia Acosta Work Phone: Start: 11-07-[address] Dacia Acosta Work Phone: Start: 11-07-2023 Dr. Dacia Acosta Work Phone: Start: 11-05-2023 Plain chest X-ray Dr. Dacia Acosta Work Phone: Start: 11-05-2023 SARS-CoV-2, Influenza & RSV (PCR) Dr. Herlinda Acosta Work Phone: Start: 11-05-[address] Dacia Acosta Work Phone: Start: 11-05-2023 Dr. Dacia Acosta Work Phone: Start: 10-07-2023 US scan of gallbladder Dr. Dacia jackson Work Phone: Start: 10-07-[address] Dacia Acosta Work Phone: Start: 10-07-[address] Dacia Acosta Work Phone: Start: 10-06-2023 Computed tomography of abdomen and pelvis with intravenous contrast Dr. Dacia Acosta Work Phone: Start: 09-24-2023 CT of soft tissues of neck with contrast Dr. Dacia Acosta Work Phone: Start: 09-24-2023 SARS-CoV-2, Influenza & RSV (PCR) Dr. Herlinda Acosta Work Phone: Start: 09-24-2023 Dr. Dacia Acosta Work Phone: Start: 09-15-2023 Basic metabolic panel calcium total Rafita Lim MD Work Phone: Start: 09-14-2023 Abdom paracentesis dx/ther w/imaging guidance Saima Lim MD Work Phone: Start: 09-14-2023 Blood count complete automated Susi Lim MD Work Phone: Start: 09-14-2023 Basic metabolic panel calcium total Rafita Lim MD Work Phone: Start: 09-13-2023 Basic metabolic panel calcium total Rafita Lim MD Work Phone: Start: 09-12-2023 Comprehensive metabolic panel Cindi rome MD Work Phone: Start: 09-11-2023 Comprehensive metabolic panel Cindi rome MD Work Phone: Start: 09-10-2023 Prothrombin time Tony Armstrong MD Work Phone: Start: 09-10-2023 Abdom paracentesis dx/ther w/imaging guidance Cindi Salas MD Work Phone: Start: 09-10-2023 Comprehensive metabolic panel Cindi rome MD Work Phone: Start: 09-10-2023 Assay of troponin quantitative Haleigh GARCIA Work Phone: Start: 09-09-2023 Assay of troponin quantitative Haleigh GARCIA Work Phone: Start: 09-09-2023 Ct abdomen & pelvis w/contrast material Haleigh GARCIA Work Phone: Start: 09-09-2023 Drug tst prsmv instrmnt chem analyzers pr date Judah Clement MD Work Phone: Start: 09-09-2023 SARS-COV-2, FLU A/B, AND RSV COMBO Silvia GARCIA Work Phone: Start: 09-09-2023 Urinalysis complete panel - Urine Sugey GARCIA Work Phone: Start: 09-09-2023 Urine test visual color cmprsn meths Haleigh GARCIA Work Phone: Start: 09-09-2023 Urnls dip stick/tablet reagent auto microscopy Haleigh GARCIA Work Phone: Start: 09-09-2023 Comprehensive metabolic panel Haleigh GARCIA Work Phone: Start: 09-09-2023 Manual differential performed [Presence] in Blood Haleigh GARCIA Work Phone: Start: 09-09-2023 Ecg routine ecg w/least 12 lds i&r only Haleigh GARCIA Work Phone: Start: 09-09-2023 Radiologic exam chest single view Sugye GARCIA Work Phone: Start: 08-22-[address] Dacia Acosta Work Phone: Start: 08-15-[address] Dacia randhawa Work Phone: Start: 08-15-[address] Dacia Acosta Work Phone: Start: 08-15-2023 Investigation of transfusion reaction Dr. Dacia Acosta Work Phone: Start: 08-15-[address] Dacia Acosta Work Phone: Start: 07-21-[address] Dacia randhawa Work Phone: Start: 07-21-[address] Dacia Acosta Work Phone: Start: 07-21-2023 Investigation of transfusion reaction Dr. Dacia Acosta Work Phone: Start: 07-21-[address] Dacia Acosta Work Phone: Start: 07-20-2023 Computed tomography of abdomen and pelvis with intravenous contrast Start: 07-20-2023 X-ray of both feet Start: 01-24-2023 End: 01-24-2023 Mammography Bulk Order Provider Start: 09-29-2022 COVID WITH FLUA+B, ROUTINE Lynn ngo MD Work Phone: Start: 09-29-2022 Cul bact xcpt urine blood/stool aerobic isol Lynn Prabhakar MD Work Phone: Start: 09-15-[address] Dacia herbert Work Phone: Start: 05-20-2022 Plain chest X-ray Dr. Dacia Acosta Work Phone: Start: 05-19-2022 CT of abdomen and pelvis without contrast Start: 05-19-2022 Plain chest X-ray Ligation of fallopian tube Nuvia EMILY MUHAMMADAnna MADERA Respiratory Panel (PCR) Dr. Dacia Acosta Work Phone: Urine culture Dr. Dacia zhou Work Phone: Viral antigen assay Plan of Treatment Date Care Activity Detail Author Start: 2033 RSV Immunization aged 60 or older (1 - 1-dose 60+ series) RSV Immunization aged 60 or older (1 - 1-dose 60+ series) [facility] Start: 07-20-2033 DTAP/TDAP/TD VACCINE (2 - Td or Tdap) DTAP/TDAP/TD VACCINE (2 - Td or Tdap) [facility] Start: 07-20-2033 DTaP/Tdap/Td Vaccines (2 - Td or Tdap) DTaP/Tdap/Td Vaccines (2 - Td or Tdap) [facility] Start: 07-20-2033 Urine microalbumin profile DTaP,Tdap,Td Vaccine (2 - Td or Tdap) [facility] Start: 06-04-2027 Diabetes Screening Diabetes Screening [facility] Start: 05-10-2027 Diabetes Screening Diabetes Screening [facility] Start: 11-23-2026 Diabetes Screening Diabetes Screening [facility] Start: 09-15-2026 Diabetes Screening Diabetes Screening [facility] Start: 12-19-2025 Screening for malignant neoplasm of breast ANNUAL MAMMO[facility] Start: 03-20-2025 ambulatory Facility:[facility] Start: 03-15-2025 ambulatory Facility:[facility] Start: 02-22-[address] [facility] Start: 02-05-2025 End: 02-05-2025 Patient encounter procedure 02/05/2025 11:00 AM EDT Office Visit [facility] [address] [facility] [place] [address] Destiny Godfrey MD [address] [facility] [place] [address] Judie Glil APRN [address] [place] [address] [facility] Start: 02-04-[address] [facility] Start: 01-14-2025 Subsequent hospital visit by physician 01/14/2025 Hospital Encounter Endoscopy [address] [place] [address] Katharina Welsh MD [address] [facility] [address] [place] [id number] Endoscopy Start: 12-18-2024 End: 12-18-2024 Patient encounter procedure 12/18/2024 11:30 AM EDT [facility]ointment [facility] [address] [phone] Referral, Self [address] [place] [address] [facility] Start: 12-17-2024 End: 12-17-2024 Patient encounter procedure 12/17/2024 3:00 PM EDT Office Visit [facility] [address] [place] [address], [address] [place] [id number] Lyssa Farrell APRN [address] [place] [address] [place] [address] [facility] Start: 11-29-2024 Subsequent hospital visit by physician 11/29/2024 Hospital Encounter Endoscopy [address] [place], [place] [phone] Katharina Welsh MD [address] [place] [address] Endoscopy Start: 11-08-2024 End: 11-08-2024 Patient encounter procedure 11/08/2024 11:40 AM EST Office Visit Christopher Diaz [address] [place] [address] [place] [phone] Destiny Godfrey MD [address] [facility] [place] [address] Judie Gill APRN [address] [place] [address] Christopher Diaz Start: 10-24-2024 End: 10-24-2024 Patient encounter procedure 10/24/2024 2:30 PM EST Office Visit Gastroenterology [address] [place] [phone] James Hendrix MD [address] [place], [place] [phone] cirrhosis with Ascites, saw local GI and they referred back to [facility] [place] Comment on above: cirrhosis with Ascites, saw local GI and they referred back to [facility] Start: 10-18-2024 End: 10-18-2024 Patient encounter procedure 10/18/2024 2:15 PM EST [facility]ointment [facility] [address] [place] [address] [facility] Start: 10-10-2024 Subsequent hospital visit by physician 10/10/2024 Hospital Encounter [facility] [address] [place] [phone] Ginger Milton MD [address] [place] [address] [facility] Comment on above: [facility] Start: 10-09-2024 Subsequent hospital visit by physician 10/09/2024 Hospital Encounter Endoscopy [address] [place] [address] Katharina Welsh MD [address] [place] [address] Endoscopy Start: 10-04-2024 Subsequent hospital visit by physician 10/04/2024 Hospital Encounter [facility] [address] [place] [address] Max Rico MD [address] [place] [address] [facility] Comment on above: [facility] Start: 10-03-2024 Subsequent hospital visit by physician 10/03/2024 Hospital Encounter [facility] [address] [place] [address] Max Rico MD [address] [place] [address] [facility] Comment on above: [facility] Start: 09-27-2024 End: 09-27-2024 Patient encounter procedure 09/27/2024 3:30 PM EST Office Visit [facility] [address] [place] [address] [place] [address] Destiny Godfrey MD [address] [facility] [place] [address] Christopher Sandoval [facility] Start: 09-27-2024 Subsequent hospital visit by physician 09/27/2024 Hospital Encounter [facility] [address] [facility] [place] [address] Ginger Milton MD [address] [place] [address] [facility] Comment on above: [facility] Start: 09-20-2024 Subsequent hospital visit by physician 09/20/2024 Hospital Encounter [facility] [address] [place] [address] Minda Gómez MD [address] [place] [id number] [facility] Comment on above: [facility] Start: 09-20-2024 End: 09-20-2024 Patient encounter procedure 09/20/2024 1:45 PM EST Office Visit [facility] [address] [facility], [address] [place] [address] Katharina Welsh MD [address] [address] [place] [address] Ashlee Frazier APRN [address] [place] [address] [facility] Start: 08-30-2024 Subsequent hospital visit by physician 08/30/2024 Hospital Encounter [facility] [address] [place] [address] Minda Gómez MD [address] [place] [address] [facility] Comment on above: [facility] Start: 08-22-2024 Subsequent hospital visit by physician 08/22/2024 Hospital Encounter [facility] [address] [place] [phone] Max Rico MD [address] [place] [address] [facility] Comment on above: [facility] Start: 08-09-2024 Subsequent hospital visit by physician 08/09/2024 Hospital Encounter [facility] [address] [place] [address] Minda Gómez MD [address] [place] [address] [facility] Discharge Disposition: Home or Self Care [facility] Interventional Radiology Comment on above: [facility] Start: 08-02-2024 Subsequent hospital visit by physician 08/02/2024 [facility] [address] [place] [address] Ginger Milton MD [address] [place] [address] [facility] Comment on above: [facility] Start: 07-27-2024 End: 07-27-2024 Patient encounter procedure 07/27/2024 10:30 AM EDT Office Visit [address] [place] [phone] BandaJhonatan garcia, REFRACTORY MIXER [address] [place] [address] [facility] Start: 07-25-2024 End: 07-25-2024 Patient encounter procedure 07/25/2024 3:00 PM EDT Office Visit [facility] [address] [place] [phone] Katharina Welsh MD [address] [place] [address] [facility] Start: 07-18-2024 End: 07-18-2024 Patient encounter procedure 07/18/2024 11:00 AM EDT Office Visit [facility] [address] [place] [phone] Katharina Welsh MD [address] [place] [address] [facility] Start: 06-24-2024 DIABETES SCREEN DIABETES SCREEN [facility] Start: 06-24-2024 Diabetes Screening Diabetes Screening [facility] Start: 05-29-2024 End: 05-29-2024 Patient encounter procedure 05/29/2024 10:00 AM EDT Office Visit Family [facility] [address] [place], [place] [id number] Dacia Acosta MD [address], [place] [id number] Hospital Follow Up [facility] Comment on above: Hospital Follow Up Start: 05-27-2024 Covid-19 Vaccine ( season) Covid-19 Vaccine ( season) [facility] Start: 05-27-2024 Covid-19 Vaccine ( season) Covid-19 Vaccine ( season) [facility] Start: 05-27-2024 Influenza vaccination [facility] Start: 05-16-2024 End: 05-16-2024 ambulatory 05/16/2024 9:30 AM EDT Visit (SP) Office Hematology/Oncology [address] [place] [address] Erik Woods, [address] [place] [address] REGULATORY AFFAIRS CONSULTANT/PER TE* FIRST AVAIL/ ELEVATED IGG ref Rashsaan Friend* Hematology/Oncology Comment on above: REGULATORY AFFAIRS CONSULTANT/PER TE* FIRST AVAIL/ ELEVATED IGG ref Rashsaan Friend* Start: 05-15-2024 End: 05-15-2024 ambulatory 05/15/2024 3:00 PM EDT Visit (SP) Office Hematology/Oncology [address] [place] [address] Erik Woods, DO [address] [place] [address] REGULATORY AFFAIRS CONSULTANT/PER TE* FIRST AVAIL/ ELEVATED IGG ref Rashsaan Friend* Hematology/Oncology Comment on above: REGULATORY AFFAIRS CONSULTANT/PER TE* FIRST AVAIL/ ELEVATED IGG ref Rashsaan Friend* Start: 05-15-2024 End: 05-15-2024 Patient encounter procedure 05/15/2024 2:50 PM EDT Office Visit OB/Gynecology [address] [place] [address] Jeannette Dawson MD [address] [place] [address] F/U family med, abdominal pain OB/Gynecology Comment on above: F/U family med, abdominal pain Start: 05-11-2024 End: 08-10-2024 Potassium [Moles/volume] in Serum or Plasma POTASSIUM Lab Routine Hypokalemia Expected: 05/11/2024, Expires: 08/10/2024 [facility] Work Phone: Comment on above: Expected: 05/11/2024, Expires: Start: 05-11-2024 End: 05-11-2024 Patient encounter procedure OB/Gynecology Comment on above: Follow up from [facility], abdominal pain Diarrhea, unspecifie d type [R19.7] Start: 05-10-2024 End: 08-09-2024 HIV 1+2 Ab [Presence] in Serum or Plasma by Immunoassay [facility] Comment on above: Expected: 05/10/2024, Expires: Start: 05-10-2024 End: 08-09-2024 SYPHILIS TOTAL W/REFLEX [facility] Comment on above: Expected: 05/10/2024, Expires: Start: 04-20-2024 End: 04-20-2024 Patient encounter procedure 04/20/2024 2:00 PM EDT Office Visit [facility] [place] [address] [place], [place] [phone] Mervin Matthews APRN.COMMUNITY SERVICE OFFICER [address] [place] [address] [facility] 04/13 f/u kidney stone [facility] [place] Comment on above: [facility] 04/13 f/u kidney stone Start: 03-20-2024 End: 03-20-2024 Patient encounter procedure 03/20/2024 12:00 PM EDT Office Visit [facility] [place] [address] [place] [phone] Melisa Thayer MD [address] [place] [address] Follow-up disposition: Return in about 4 weeks (around 03/06/2024) for Follow up. [facility] [place] Comment on above: Follow-up disposition: Return in about 4 weeks (around 03/06/2024) for Follow up. Start: 03-14-2024 End: 03-14-2024 Patient encounter procedure 03/14/2024 4:00 PM EDT Appointment Mammogram [address] [place], [place] [phone] JEANETH SCREENING Mammogram Comment on above: JEANETH SCREENING Start: 02-21-2024 HPV TESTING HPV TESTING [facility] Start: 02-21-2024 PAP TESTING PAP TESTING [facility] Start: 02-21-2024 Screening for malignant neoplasm of cervix [facility] Start: 02-07-2024 End: 02-07-2024 Patient encounter procedure 02/07/2024 9:00 AM EDT Office Visit [facility] [place] [address] [place] [phone] Melisa Thayer MD [address] [place] [address] Open wound of skin [T14.8XXA]/ PATIENT INFORMED THAT APPT MIGHT NEED TO BE RESCHEDULED PLEASE CALL PATIENT, NOTICE THAT SLOT WAS LOCK [facility] [place] Comment on above: Open wound of skin [T14.8XXA]/ PATIENT I NFORMED THAT APPT MIGHT NEED TO BE RESCHEDULED PLEASE CALL PATIENT, NOTICE THAT SLOT WAS LOCK Start: 01-25-2024 Mammography [facility] Start: 01-25-2024 Screening for malignant neoplasm of breast Mammogram Screening [facility] Start: 12-28-[address] [facility] Start: 12-09-[address] [facility] Start: 12-09-2023 Diagnostic radiography of abdomen [facility] Start: 12-09-2023 XR Chest and Abdomen Views [facility] Start: 12-07-[address] [facility] Start: 12-05-2023 Referral to collect on delivery clerk [facility] Start: 12-05-2023 Anaerobic microbial culture [facility] Start: 12-05-[address] [facility] Start: 12-05-2023 End: 12-05-[address] [facility] Start: 12-04-2023 Following clinical pathway protocol [facility] Start: 12-04-2023 Assessment of risk of venous thromboembolism [facility] Start: 12-04-2023 Inhalation therapy procedure [facility] Start: 12-04-2023 Insertion of catheter into peripheral vein [facility] Start: 12-04-2023 Introduction of urinary catheter [facility] Start: 12-04-2023 Measuring intake and output [facility] Start: 12-04-[address] [facility] Start: 12-04-2023 Providing care according to standard [facility] Start: 12-04-2023 Provision of activity privileges [facility] Start: 12-04-2023 Referral to service [facility] Start: 12-04-2023 Tobacco use cessation education [facility] Start: 12-04-[address] [facility] Start: 12-04-[address] [facility] Start: 12-04-[address] [facility] Start: 12-04-2023 Hospital admission, emergency, from emergency room, medical nature [facility] Start: 12-04-[address] [facility] Start: 12-04-2023 Patient referral to dietitian [facility] Start: 11-26-2023 End: 02-25-2024 Urinalysis complete panel - Urine [facility] Work Phone: Comment on above: Expected: 11/26/2023, Expires: Start: 11-10-2023 End: 11-10-[address] [facility] Start: 11-07-2023 Anaerobic Culture Anaerobic Culture [facility] Start: 11-07-2023 Anaerobic microbial culture [facility] Start: 11-07-2023 Body Fluid Culture Body Fluid Culture [facility] Start: 11-07-2023 Microscopic observation [Identifier] in Unspecified specimen by Gram stain [facility] Start: 11-07-2023 End: 11-07-[address] [facility] Start: 11-05-2023 End: 11-05-[address] [facility] Start: 10-10-[address] [facility] Start: 10-09-[address] [facility] Start: 2023 Shingles Vaccine (Shingrix) (1 of 2) Shingles Vaccine (Shingrix) (1 of 2) [facility] Start: 2023 Shingrix Vaccine (1 of 2) Shingrix Vaccine (1 of 2) [facility] Start: 2023 Zoster Vaccines (1 of 2) Zoster Vaccines (1 of 2) [facility] Start: [address] [facility] Start: 10-07-2023 Urine culture Urine Culture [facility] Start: 10-07-2023 End: 10-07-[address] [facility] Start: 10-06-2023 Following clinical pathway protocol [facility] Start: 10-06-2023 Assessment of risk of venous thromboembolism [facility] Start: 10-06-2023 Insertion of catheter into peripheral vein [facility] Start: 10-06-2023 Providing care according to standard [facility] Start: 10-06-2023 Provision of activity privileges [facility] Start: 10-06-2023 Referral to occupational therapist [facility] Start: 10-06-2023 Referral to service [facility] Start: 10-06-[address] [facility] Start: 10-06-[address] [facility] Start: 10-06-[address] [facility] Start: 09-24-[address] [facility] Start: 08-22-[address] [facility] Start: 08-22-2023 Referral to service [facility] Start: 08-22-2023 End: 08-22-[address] [facility] Start: 08-15-2023 Iv infusion therapy prophylaxis/dx ea hour [facility] Start: 08-15-2023 Iv infusion therapy/prophylaxis /dx 1st to [address] [facility] Start: 08-15-2023 Level iv surg pathology gross&microscopic exam [facility] Start: 08-15-2023 Following clinical pathway protocol [facility] Start: 07-21-2023 Anaerobic Culture Anaerobic Culture [facility] Start: 07-21-2023 Body Fluid Culture Body Fluid Culture [facility] Start: 07-21-2023 Microscopic observation [Identifier] in Unspecified specimen by Gram stain Gram Stain [facility] Start: 07-21-[address] [facility] Start: 07-21-2023 CBC W Auto Differential panel - Blood [facility] Start: 07-21-[address] [facility] Start: 07-21-2023 Following clinical pathway protocol [facility] Start: 07-21-2023 Assessment of risk of venous thromboembolism [facility] Start: 07-21-2023 Catheterization of vein [facility] Start: 07-21-2023 Cell count and Differential panel - Body fluid [facility] Start: 07-21-2023 Centesis Paracentesis with US [facility] Start: 07-21-2023 Insertion of catheter into peripheral vein [facility] Start: 07-21-2023 Measuring intake and output [facility] Start: 07-21-2023 Microbial culture, body fluid [facility] Start: 07-21-2023 Providing care according to standard [facility] Start: 07-21-2023 Provision of activity privileges [facility] Start: 07-21-2023 Referral to gastroenterology service [facility] Start: 07-21-[address] [facility] Start: 07-21-[address] [facility] Start: 07-21-2023 Patient referral to dietitian [facility] Start: 07-20-[address] [facility] Start: 07-20-[address] [facility] Start: 07-20-2023 Abdom paracentesis dx/ther w/imaging guidance [facility] Start: 05-27-2023 Covid-19 Vaccine ( season) Covid-19 Vaccine () [facility] Start: 05-27-2023 Influenza vaccination [facility] Start: 04-25-[address] [facility] Start: 04-25-2023 Gonadotropin chorionic qualitative CHORIONIC GONADOTROPIN ASSAY [facility] Start: 12-02-2022 End: 02-01-2023 Bacteria identified in Wound by Culture WOUND CULTURE AND GRAM STAIN Microbiology Routine Skin infection Expected: 12/02/2022, Expires: 02/01/2023 [facility] Work Phone: Comment on above: Expected: 12/02/2022, Expires: 3 Start: 09-15-[address] [facility] Work Phone: Start: 08-27-2022 Acute hepatitis 2000 panel - Serum [facility] Work Phone: Start: 08-27-2022 Igtwj-4-fbrtisssoes.tumo r marker [Units/volume] in Serum or Plasma [facility] Work Phone: Start: 08-27-2022 Angiotensin converting enzyme [Enzymatic activity/volume] in Serum or Plasma [facility] Work Phone: Start: 08-27-2022 Ceruloplasmin [Mass/volume] in Serum or Plasma [facility] Work Phone: Start: 08-27-2022 Copper [Moles/volume] in Serum or Plasma [facility] Work Phone: Start: 08-27-2022 Haptoglobin [Mass/volume] in Serum or Plasma [facility] Work Phone: Start: 08-27-2022 Hepatitis B virus genotype [Identifier] in Serum or Plasma by PHYLLIS with probe detection [facility] Work Phone: Start: 08-27-2022 Mitochondria Ab [Presence] in Serum [facility] Work Phone: Start: 08-27-2022 Smooth muscle Ab [Presence] in Serum [facility] Work Phone: Start: 08-27-[address] [facility] Work Phone: Start: 05-27-2022 Influenza vaccination [facility] Start: 05-21-[address] [facility] Work Phone: Start: 05-21-[address] [facility] Work Phone: Start: 05-21-2022 Referral to occupational therapist [facility] Work Phone: Start: 05-21-2022 Referral to service [facility] Work Phone: Start: 05-20-2022 Application of intermittent pneumatic compression device [facility] Work Phone: Start: 05-19-2022 Following clinical pathway protocol [facility] Work Phone: Start: 05-19-[address] [facility] Work Phone: Start: 05-19-2022 Assessment of risk of venous thromboembolism [facility] Work Phone: Start: 05-19-2022 Bacteria identified in Sputum by Culture [facility] Work Phone: Start: 05-19-[address] [facility] Work Phone: Start: 05-19-[address] [facility] Work Phone: Start: 05-19-2022 Inhalation therapy procedure [facility] Work Phone: Start: 05-19-2022 Insertion of catheter into peripheral vein [facility] Work Phone: Start: 05-19-2022 Introduction of urinary catheter [facility] Work Phone: Start: 05-19-2022 Measuring intake and output [facility] Work Phone: Start: 05-19-2022 Providing care according to standard [facility] Work Phone: Start: 05-19-2022 Provision of activity privileges [facility] Work Phone: Start: 05-19-2022 Referral to service [facility] Work Phone: Start: 05-19-2022 Tobacco use cessation education [facility] Work Phone: Start: 05-19-[address] [facility] Work Phone: Start: 05-19-2022 End: 05-19-[address] [facility] Work Phone: Start: 05-19-2022 Legionella pneumophila Ag [Presence] in Urine [facility] Work Phone: Start: 05-19-2022 Streptococcus pneumoniae antigen assay [facility] Work Phone: Start: 05-19-2022 Viral nucleic acid assay [facility] Work Phone: Start: 05-19-[address] [facility] Work Phone: Start: 05-19-[address] [facility] Work Phone: Start: 05-19-[address] [facility] Work Phone: Start: 05-09-2022 End: 07-09-2022 Bacteria identified in Wound by Culture [facility] Work Phone: Comment on above: Expected: 05/09/2022, Expires: 2 Start: 01-11-2022 End: 01-25-2022 Influenza virus A and B RNA and SARS-CoV-2 (COVID-19) N gene panel - Respiratory specimen by PHYLLIS with probe detection [facility] Work Phone: Comment on above: Expected: 01/11/2022, Expires: 2 Start: 08-05-2019 PNEUMOCOCCAL (2 - PCV) PNEUMOCOCCAL (2 - PCV) [facility] Start: 08-05-2019 Pneumococcal vaccination [facility] Start: 08-05-2019 Pneumococcal Vaccine: 50+ (2 of 2 - PCV) Pneumococcal Vaccine: 50+ (2 of 2 - PCV) [facility] Start: 2018 COLOGUARD (FIT-DNA) COLOGUARD (FIT-DNA) [facility] Start: 2018 Colonoscopy COLONOSCOPY [facility] Start: 2018 COLORECTAL CANCER SCREENING COLORECTAL CANCER SCREENING [facility] Start: [address] COLONOGRAPHY [facility] Start: 2018 FECAL OCCULT BLOOD FECAL OCCULT BLOOD [facility] Start: 2018 Lipid 1996 panel - Serum or Plasma Lipid Screening [facility] Start: 2018 Lipid panel Lipid Screening [facility] Start: 2018 LIPID SCREEN LIPID SCREEN [facility] Start: 2018 Screening for malignant neoplasm of colon [facility] Start: 2018 SIGMOIDOSCOPY SIGMOIDOSCOPY [facility] Start: 2013 Mammography MAMMOGRAM [facility] Start: 2013 Screening for malignant neoplasm of breast [facility] Start: 2003 Screening for malignant neoplasm of cervix [facility] Start: 1994 Screening for malignant neoplasm of cervix Pap Smear [facility] Start: 1992 DTAP/TDAP/TD VACCINE (1 - Tdap) DTAP/TDAP/TD VACCINE (1 - Tdap) [facility] Start: 1992 HEP A VACCINE (1 of 2 - Risk 2-dose series) HEP A VACCINE (1 of 2 - Risk 2-dose series) [facility] Start: 1992 Hepatitis A Vaccine (1 of 2 - Risk 2-dose series) Hepatitis A Vaccine (1 of 2 - Risk 2-dose series) [facility] Start: 1992 Hepatitis A Vaccines (1 of 2 - Risk 2-dose series) Hepatitis A Vaccines (1 of 2 - Risk 2-dose series) [facility] Start: 1992 HEPATITIS B (1 of 3 - Risk 3-dose series) HEPATITIS B (1 of 3 - Risk 3-dose series) [facility] Start: 1992 Hepatitis B Vaccine (1 of 3 - 19+ 3-dose series) Hepatitis B Vaccine (1 of 3 - 19+ 3-dose series) [facility] Start: 1992 Urine microalbumin profile DTAP,TDAP,TD (1 - Tdap) [facility] Start: 1991 Anxiety Screening Anxiety Screening [facility] Start: 1991 Diabetes mellitus screening Diabetes Screening [facility] Start: 1985 Depresssion Monitoring Depresssion Monitoring [facility] Start: 1978 COVID-19 VACCINE (#1) COVID-19 VACCINE (#1) [facility] Start: 1978 COVID-19 VACCINE (1) COVID-19 VACCINE (1) [facility] Start: 1976 ANNUAL WELLNESS EXAM ANNUAL WELLNESS EXAM [facility] Start: 1974 HEPATITIS A (1 of 2 - Risk 2-dose series) HEPATITIS A (1 of 2 - Risk 2-dose series) [facility] Start: 1974 MMR Vaccines (1 of 1 - Standard series) MMR Vaccines (1 of 1 - Standard series) [facility] Start: 04-07-1974 COVID-19 VACCINE (#1) COVID-19 VACCINE (#1) [facility] Start: 1973 HEPATITIS B (1 of 3 - 3-dose series) HEPATITIS B (1 of 3 - 3-dose series) [facility] Start: 1973 Hepatitis B Vaccine (1 of 3 - 3-dose series) Hepatitis B Vaccine (1 of 3 - 3-dose series) [facility] Start: 1973 Hepatitis B Vaccines (1 of 3 - 3-dose series) Hepatitis B Vaccines (1 of 3 - 3-dose series) [facility] Start: 1973 HIV screening HIV Screening [facility] Start: 1973 Screening for malignant neoplasm of cervix PAP SMEAR EVERY 3 YR (Cervical Cancer Screen) [facility] Start: 1973 Screening for malignant neoplasm of colon [facility] Alanine aminotransfe rase [Enzymatic activity/volume] in Serum or Plasma [facility] Alanine aminotransfe rase [Enzymatic activity/volume] in Serum or Plasma [facility] Albumin [Mass/volume ] in Serum or Plasma [facility] Albumin [Mass/volume ] in Serum or Plasma [facility] Albumin, Body Fluid Albumin, Bod y Fluid Lab Routine 07/02/2024 1:03 PM EDT [facility] Albumin, Body Fluid Albumin, Bod y Fluid Lab Routine 07/09/2024 8:37 AM EDT [facility] Alkaline phosphatase [Enzymatic activity/volume] in Serum or Plasma [facility] Alkaline phosphatase [Enzymatic activity/volume] in Serum or Plasma [facility] Vwyjq-5-jknytznrwap. tumo r marker [Units/volume] in Serum or Plasma [facility] Work Phone: Krpkp-2-jguybfzqbzd. tumo r marker [Units/volume] in Serum or Plasma [facility] Tscms-3-gqfuxmahnwg. tumo r marker [Units/volume] in Serum or Plasma [facility] Amphetamine [Mass/volume] in Urine [facility] Angiotensin converti ng enzyme [Enzymatic activity/volume] in Serum or Plasma [facility] Work Phone: Anion gap measurement [facility] Anion gap measurement [facility] Antibody to lupus [place] protein measurement [facility] Work Phone: Antibody to SS-A measurement [facility] Work Phone: Aspartate aminotransferase [Enzymatic activity/volume] in Serum or Plasma [facility] Aspartate aminotransferase [Enzymatic activity/volume] in Serum or Plasma [facility] Bacteria identified in Body fluid by Culture [facility] Bacteria identified in Body fluid by Culture [facility] Bacteria identified in Unspecified specimen by Anaerobe culture [facility] Bacteria identified in Unspecified specimen by Anaerobe culture [facility] Bacteria identified in Urine by Culture Urine Culture [facility] Work Phone: Bacteria identified in Urine by Culture [facility] Bacteria identified in Urine by Culture URINE CULTURE Microbiology Routine Gross hematuria Acute cystitis with hematuria 01/31/2024 11:20 AM EDT [facility] Bacteria identified in Urine by Culture [facility] Bacteria identified in Urine by Culture URINE CULTURE Microbiology Routine Urinary frequency Ordered: 05/07/2024 [facility] Work Phone: Comment on above: Ordered: 05/07/2024 Bacteria identified in Wound by Culture WOUND CULTURE AND GRAM STAIN Microbiology Routine Cellulitis of chin 09/29/2022 6:34 PM EST [facility] Work Phone: Bacteria identified in Wound by Culture [facility] Work Phone: Benzodiazepine measurement, urine [facility] Bilirubin measuremen t, urine [facility] Bilirubin, total measurement [facility] Bilirubin, total measurement [facility] Bilirubin.direct [Mass/volume] in Serum or Plasma [facility] Blood ammonia measurement [facility] Blood Culture, Peripheral x 2 sets Blood Culture, Peripheral x 2 sets Microbiology STAT 12/10/2024 2:41 AM EDT [facility] Body Fluid Cell Count Body Fluid Cell Count Lab Routine 07/02/2024 1:03 PM EDT [facility] Body Fluid Cell Count Body Fluid Cell Count Lab Routine 07/09/2024 8:37 AM [facility] End: 07-02-2024 Body Fluid Culture [facility] Work Phone: Comment on above: One Time for 1 Occurrences starting 03/2024 until 07/02/2024 Body Fluid Culture Body Fluid Cu lture Microbiology Routine 07/09/2024 8:37 AM [facility] BUN/Creatinine ratio [facility] BUN/Creatinine ratio [facility] C reactive protein [Mass/volume] in Serum or Plasma [facility] Calcium [Mass/volume ] in Serum or Plasma [facility] Calcium [Mass/volume ] in Serum or Plasma [facility] Carbon dioxide, tota l [Moles/volume] in Serum or Plasma [facility] Carbon dioxide, tota l [Moles/volume] in Serum or Plasma [facility] CBC panel - Blood by Automated count CBC Lab Routine Daily until discontinued starting 12/10/2024, 4 completed [facility] Comment on above: Daily until discontinued starting 2024, 4 completed CBC W Auto Different ial panel - Blood [facility] CBC W Auto Different ial panel - Blood [facility] Centromere protein B Ab [Units/volume] in Serum [facility] Work Phone: Ceruloplasmin [Mass/volume] in Serum or Plasma [facility] Work Phone: Chlamydia trachomatis+Neisseria gonorrhoeae DNA [Presence] in Unspecified specimen by PHYLLIS with probe detection GONORRHEA/CHLAMYDIA NAAT Lab Routine Possible exposure to STD Ordered: 05/10/2024 [facility] Comment on above: Ordered: 05/10/2024 Chloride [Moles/volu me] in Serum or Plasma [facility] Chloride [Moles/volu me] in Serum or Plasma [facility] Choriogonadotropin.b eta subunit ( test) [Presence] in Serum or Plasma [facility] Chromatin Ab [Units/volume] in Serum or Plasma [facility] Work Phone: Cocaine measurement, urine [facility] Comprehensive metabo lic 2000 panel - Serum or Plasma Comprehensive Metabolic Panel Lab Timed Daily until discontinued starting 12/10/2024, 4 completed [facility] Comment on above: Daily until discontinued starting 2024, 4 completed Comprehensive metabo lic 2000 panel - Serum or Plasma [facility] Copper [Moles/volume ] in Serum or Plasma [facility] Work Phone: Creatinine [Moles/volume] in Serum or Plasma [facility] Creatinine [Moles/volume] in Serum or Plasma [facility] End: 06-09-2025 CT Abdomen and Pelvis W contrast IV CT ABD/PEL W IVCON Radiology STAT Diarrhea, unspecified type 1 Occurrences starting 05/10/2024 until 06/09/2025 [facility] Work Phone: Comment on above: 1 Occurrences starting 05/10/2024 until 06/09/2025 Cytology report of B no fluid Cyto stain [facility] End: 07-02-2024 Cytology, Non Lab Rn [facility] Comment on above: One Time for 1 Occurrences starting 03/2024 until 07/02/2024 End: 07-09-2024 Cytology, Non Lab Rn [facility] Work Phone: Comment on above: One Time for 1 Occurrences starting 06/26 until 07/09/2024 Cytoplasmic ANCA Screen [facility] DNA double strand Ab [Units/volume] in Serum [facility] Work Phone: EGD /C BAND LIGATION VARICES [facility] Ferritin [Mass/volum e] in Serum or Plasma [facility] Gamma glutamyl transferase measurement [facility] Gamma glutamyl transferase measurement [facility] Glucose [Mass/volume ] in Serum or Plasma [facility] Glucose [Mass/volume ] in Serum or Plasma [facility] Haptoglobin [Mass/volume] in Serum or Plasma [facility] Work Phone: Hematocrit [Volume Fraction] of Blood [facility] Hematocrit [Volume Fraction] of Blood [facility] Hemoglobin [Mass/vol ume] in Blood [facility] Hemoglobin [Mass/vol ume] in Blood [facility] Hemoglobin [Presence ] in Urine [facility] Hemoglobin A1c/Hemoglobin.total in Blood [facility] Hepatitis A virus Ig M Ab [Presence] in Serum [facility] Work Phone: Hepatitis B core antibody measurement, IgM type [facility] Work Phone: Hepatitis B surface antigen measurement [facility] Work Phone: Hepatitis B virus surface Ab [Presence] in Serum [facility] Hepatitis C antibody measurement [facility] Work Phone: Hepatitis C virus genotype [Identifier] in Blood by PHYLLIS with probe detection [facility] Work Phone: Hepatitis C virus RN A assay [facility] Hepatitis C virus RN A assay [facility] IgG subclass panel [Mass/volume] - Serum [facility] Immunoglobulin measurement [facility] Iron and Iron bindin g capacity panel - Serum or Plasma [facility] Thania-1 extractable nuc lear Ab [Units/volume] in Serum [facility] Work Phone: Leukocytes [#/volume ] in Blood [facility] Leukocytes [#/volume ] in Blood [facility] Lipid 1996 panel - S marcello or Plasma [facility] Magnesium [Mass/volu me] in Serum or Plasma [facility] Work Phone: Mean corpuscular hemoglobin concentration determination [facility] Mean corpuscular hemoglobin concentration determination [facility] Mean corpuscular hemoglobin determination [facility] Mean corpuscular hemoglobin determination [facility] Measurement of 3,4-methylenedioxymetham phetamine in urine [facility] Measurement of keton es in urine using dipstick [facility] Measurement of renal function [facility] Measurement of renal function [facility] Methadone measuremen t, urine [facility] End: 03-30-2025 MG Breast Screening JEANETH SCREENING Radiology Routine Encounter for screening mammogram for breast cancer 1 Occurrences starting 02/29/2024 until 03/30/2025 [facility] Work Phone: Comment on above: 1 Occurrences starting 02/29/2024 until 03/30/2025 Microbial culture, b no fluid [facility] Microscopic urinalysis [facility] Mitochondria Ab [Presence] in Serum [facility] Work Phone: Mitochondria Ab [Presence] in Serum [facility] Neutrophil count [facility] Neutrophil count [facility] Neutrophil cytoplasm ic Ab.classic [Units/volume] in Serum [facility] Work Phone: Neutrophil percent differential count [facility] Neutrophil percent differential count [facility] P-ANCA measurement [facility] Work Phone: Patient Education [facility] Work Phone: Patient referral [facility] Work Phone: pH of Urine [facility] pH of Urine [facility] Phencyclidine [Prese nce] in Urine [facility] Platelets [#/volume] in Blood [facility] Platelets [#/volume] in Blood [facility] Potassium [Moles/vol ume] in Serum or Plasma [facility] Potassium [Moles/vol ume] in Serum or Plasma [facility] Prothrombin time [facility] Prothrombin time [facility] End: 12-11-2024 PT Eval and Treat -Debility - PT Eval and Treat -Debility - PT Routine Until Discontinued until discontinued starting 12/11/2024 [facility] Work Phone: Comment on above: Until Discontinued until discontinued st arting 12/11/2024 Red blood cell count [facility] Red blood cell count [facility] Red cell distributio n width determination [facility] Red cell distributio n width determination [facility] RT Protocol RT Protocol Resp iratory Care Routine As Needed until discontinued starting 12/10/2024 [facility] Work Phone: Comment on above: As Needed until discontinued starting SCL-70 extractable nuclear Ab [Units/volume] in Serum by Immunoassay [facility] Work Phone: End: 04-23-2023 Screening mammography bi 2-view breast inc cad JEANETH SCREENING Radiology Routine Encounter for screening mammogram for breast cancer 1 Occurrences starting 03/24/2022 until 04/23/2023 [facility] Work Phone: Comment on above: 1 Occurrences starting 03/24/2022 until 04/23/[address] [facility] Armstrong extractable nuclear Ab [Presence] in Serum [facility] Work Phone: Smooth muscle Ab [Presence] in Serum [facility] Work Phone: Smooth muscle Ab [Presence] in Serum [facility] Sodium [Moles/volume ] in Serum or Plasma [facility] Sodium [Moles/volume ] in Serum or Plasma [facility] Specific gravity of Urine [facility] Thyroid stimulating hormone measurement [facility] Total protein measurement [facility] Total protein measurement [facility] TRICHOMONAS VAGINALI S NAAT TRICHOMONAS VAGINALIS NAAT Lab Routine Possible exposure to STD 05/10/2024 1:38 PM EDT [facility] Urea nitrogen [Mass/volume] in Serum or Plasma [facility] Urea nitrogen [Mass/volume] in Serum or Plasma [facility] Urinalysis, blood, qualitative [facility] Urine barbiturate measurement [facility] Urine cannabinoid measurement [facility] Urine dipstick for glucose [facility] Urine dipstick for leukocyte esterase [facility] Urine dipstick for nitrite [facility] Urine dipstick for protein [facility] Urine examination [facility] Urine microscopy: epithelial cells [facility] Urine Microscopy: wh ite cells [facility] Urine opiate measurement [facility] Urine test [facility] Work Phone: Urobilinogen [Presen ce] in Urine [facility] End: 07-17-2024 Vascular Procedure [facility] Work Phone: Comment on above: One Time for 1 Occurrences starting 06/27 until 07/17/2024 End: 07-26-2024 Vascular Procedure [facility] Work Phone: Comment on above: One Time for 1 Occurrences starting 06/28 until 07/26/2024 End: 08-02-2024 Vascular Procedure [facility]RISTOPHER [facility] Work Phone: Comment on above: One Time for 1 Occurrences starting 03/2024 until 08/02/2024 End: 08-16-2024 Vascular Procedure [facility]RISTOPHER [facility] Work Phone: Comment on above: One Time for 1 Occurrences starting 07/28 until 08/16/2024 End: 09-11-2024 Vascular Procedure [facility]RISTOPHER [facility] Work Phone: Comment on above: One Time for 1 Occurrences starting 08/26 until 09/11/2024 End: 10-15-2024 Vascular Procedure [facility]RISTOPHER [facility] Work Phone: Comment on above: One Time for 1 Occurrences starting 09/27 until 10/15/2024 End: 10-19-2024 Vascular Procedure [facility]RISTOPHER [facility] Work Phone: Comment on above: One Time for 1 Occurrences starting 09/27 until 10/19/2024 End: 11-21-2024 Vascular Procedure [facility] Work Phone: Comment on above: One Time for 1 Occurrences starting 10/28 until 11/21/2024 [facility] Immunizations Immunization Date Immunization Notes Care Provider Fa dayan 07-20-2023 tetanus toxoid, redu viridiana diphtheria toxoid, and acellular pertussis vaccine, adsorbed 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 Work Phone: [facility] 08-06-2018 influenza virus vaccine, unspecified formulation Screen Wstr [facility] 08-05-2018 pneumococcal polysaccharide vaccine, 23 valent Becca Singer REFRACTORY MIXER.COMMUNITY SERVICE OFFICER Work Phone: [facility] NEGATED: Highlighted row has not occurred!09-11-2023 Influenza, injectable, Madin [place] Canine Kidney, preservative free, quadrivalent Lenny Macdonald MD Work Phone: [facility] Comment on above: Deferred: Patient Re fused Payers Date Payer Category Payer Unknown [id number] 2024 Self-pay [id number] 2023 Unknown [id number] 2023 Unknown [id number] 2015 Medicaid [employer] [id number] 2015-Present [phone] [address] [address] Medicaid [id number]. [id number] 2015 Medicaid [id number]. [id number]. [id number] 2015 Unknown [id number] 2015 Unknown [id number] 1973 Unknown [id number] 2.16.840.1.000091.3.579.2.627 1973 Unknown [id number] 2.16.840.1.219783.3.579.2.627 1973 Unknown [id number] 2.16.840.1.997169.3.579.2.627 Unknown [id number] 2.16.840.1.589764.3.579.2.462 Unknown [id number] 2.16.840.1.572978.3.579.2.462 Unknown [id number] 2.16.840.1.109763.3.579.2.462 Unknown [id number] 2.16.840.1.744919.3.579.2.462 Unknown [id number] 2.16.840.1.517712.3.579.2.462 Unknown [id number] 2.16.840.1.471310.3.579.2.462 Unknown [id number] 2.16.840.1.912327.3.579.2.462 Unknown [id number] 2.16.840.1.308710.3.579.2.462 Unknown [id number] 2.16.840.1.417066.3.579.2.462 Unknown [id number] 2.16.840.1.443245.3.579.2.462 Unknown [id number] 2.16.840.1.303553.3.579.2.462 Unknown [id number] 2.16.840.1.083635.3.579.2.462 Unknown [id number] 2.16.840.1.283665.3.579.2.462 Unknown [id number] 2.16.840.1.190973.3.579.2.462 Unknown [id number] 2.16.840.1.639713.3.579.2.462 Unknown [id number] 2.16.840.1.181198.3.579.2.462 Unknown [id number] 2.16.840.1.571297.3.579.2.462 Unknown [id number] 2.16.840.1.012019.3.579.2.462 Unknown [id number] 2.16.840.1.100903.3.579.2.462 Unknown [id number] 2.16.840.1.265496.3.579.2.462 Unknown [id number] 2.16.840.1.446364.3.579.2.462 Unknown [id number] 2.16.840.1.542148.3.579.2.462 Unknown [id number] 2.16.840.1.979933.3.579.2.462 Unknown [id number] 2.16.840.1.444728.3.579.2.462 Unknown [id number] 2.16.840.1.850945.3.579.2.462 Unknown [id number] 2.16.840.1.231988.3.579.2.462 Unknown [id number] 2.16.840.1.850785.3.579.2.462 Unknown [id number] 2.16.840.1.917307.3.579.2.462 Unknown [id number] 2.16.840.1.060129.3.579.2.462 Unknown [id number] 2.16.840.1.242073.3.579.2.462 Unknown [id number] 2.16.840.1.620353.3.579.2.462 Unknown [id number] 2.16.840.1.601871.3.579.2.462 Unknown [id number] 2.16.840.1.731364.3.579.2.462 Unknown [id number] 2.16.840.1.612538.3.579.2.462 Unknown [id number] 2.16.840.1.329085.3.579.2.462 Unknown [id number] 2.16.840.1.642577.3.579.2.462 Unknown [id number] 2.16.840.1.928236.3.579.2.462 Unknown [id number] 2.16.840.1.476864.3.579.2.462 Unknown [id number] 2.16840.1.935167.3.579.2.462 Unknown [id number] 2.16.840.1.837748.3.579.2.462 Unknown [id number] 2.16840.1.802295.3.579.2.462 Unknown [id number] 2.16.840.1.061050.3.579.2.462 Unknown [id number] 2.16.840.1.962476.3.579.2.462 Unknown [id number] 2.16840.1.813891.3.579.2.462 Unknown [id number] 2.16.840.1.653842.3.579.2.462 Unknown [id number] 2.16.840.1.658743.3.579.2.462 Unknown [id number] 2.16.840.1.072510.3.579.2.462 Unknown [id number] 2.16.840.1.273377.3.579.2.462 Unknown [id number] 2.16.840.1.340912.3.579.2.462 Social History Date Type Detail Facility Start: 04-14-2017 End: 02-21-2025 Tobacco smoking status NHIS Smokes tobacco daily [facility] Work Phone: History of tobacco use Cigarette Smoker C [facility] Work Phone: Start: 01-11-2022 End: 04-20-2024 Alcohol intake Current drinker of alcohol (finding) [facility] Start: 02-28-2020 History SDOH Alcohol Frequency 3 [facility] Start: 12-10-2011 History SDOH Alcohol Comment occasionally mixed drink [facility] Start: 04-14-2017 End: 05-09-2022 Tobacco Comment maybe more then 1 pack daily [facility] Start: 1975 Sex Assigned At Not on file [facility] Start: 01-01-2022 End: 05-26-2022 Exposure to SARS-CoV-2 (event) Not sure [facility] Work Phone: Start: 04-14-2017 End: 12-10-2024 Cigarettes smoked current (pack per day) - Reported 1 [facility] Work Phone: Start: 04-14-2017 End: 08-08-2024 Tobacco use and exposure Smokeless tobacco non-user [facility] Start: 04-30-2022 End: 05-10-2022 Exposure to SARS-CoV-2 (event) Yes [facility] Start: 05-15-2022 End: 11-07-2023 Tobacco smoking status GAIS Unknown if ever smoked [facility] Start: 1975 Sex Assigned At Female W [facility] Start: 02-28-2020 End: 12-10-2024 Alcohol Use Disorder Identification Test - Consumption [AUDIT-C] [facility] Work Phone: How often to you hav e a drink containing alcohol? 2-4 times a month [facility] Work Phone: Average Number of Drinks Not on file [facility] Within the last year , have you been afraid of your partner or ex-partner? No [facility] How often to you hav e a drink containing alcohol? Never [facility] Start: 08-22-2023 Alcohol Comment daily use of l iquor and other alcohol [facility] How hard is it for y ou to pay for the very basics like food, housing, medical care, and heating Somewhat hard [facility] (I/We) worried ben er (my/our) food would run out before (I/we) got money to buy more. Never true [facility] Start: 11-17-2023 Alcohol Comment not daily but freque nt [facility] Start: 03-23-2024 Tobacco smoking status Heavy t obacco smoker (finding) [facility] Tobacco smoking status Smoker (finding) A [facility] Sex Assigned At [facility] Start: 07-02-2024 End: 12-18-2024 Alcohol intake Ex-drinker (finding) [facility] The food that (I/we) bought just didn't last, and (I/we) didn't have money to get more. Often true [facility] Yes, it has kept me from medical appointments or from getting my medications I choose not to answer this question [facility] Start: 12-23-2014 Sex Female (finding) [facility] NEGATED: Highlighted row [facility] Medical Equipment Procedure Code Equipment Code Equipment Original Text Equipment Identifier Dates Cystoscopy, with retrograde pyelogram and ureteral stent insertion ([id number]) Polymeric ureteral stent ()[id number] [facility] Start: 05-15-2024 Super Seven Band Ligator Endo Bx4 [id number]_[facility] Start: 09-07-2024 Comment on above: Description: 2 bands implanted Goals Date Patient Goal Desired Activity /State Functional Status Date Assessment Result Facility 01-17-2025 Functional Status Independent [facility] 01-17-2025 Functional Status Standard Safet y ID band on, Allergy Band on, Call device within reach, Bed in low position, Wheels locked, Upper/Half-Length side-rails up, personal items within reach, Bedside Cart Locked, Safety level maintained, Hazards removed from floor [facility] 03-23-2024 Functional Status Up ad cyn [facility] 03-23-2024 Functional Status Standard Safet y ID band on, Allergy Band on, Call device within reach, Bed in low position, Wheels locked, Visitor at bedside [facility] 12-07-2023 Functional status Ambulates;Bathroom Priv ilege [facility] Work Phone: 2023 Functional status Ambulates [facility] Work Phone: 07-21-2023 Functional status Independent [facility] Work Phone: 05-21-2022 Functional status Ambulates [facility] Work Phone: Mental Status Date Assessment Result [facility] 01-17-2025 Mental Status Orientation Oriented x 4 [facility] 01-17-2025 Mental Status [facility] 03-23-2024 Mental Status Orientation Oriented x 4 [facility] 03-23-2024 Mental Status [facility] 12-28-2023 Cognitive function Touch/Shaking [facility] Work Phone: 12-07-2023 Cognitive function Voice/Name [facility] Work Phone: 2023 Cognitive function Follows Commands;Drows y [facility] Work Phone: 2023 Cognitive function Voice/Name [facility] Work Phone: 10-07-2023 Cognitive function Appropriate;Cooperativ e [facility] Work Phone: 09-24-2023 Cognitive function Awake;Alert;A ppropriate;Follo ws [facility] Work Phone: 08-15-2023 Cognitive function Awake;Alert;A ppropriate;Follo ws Commands [facility] Work Phone: 08-15-2023 Cognitive function Awake;Alert;Appropriat e [facility] Work Phone: 07-21-2023 Cognitive function Awake;Alert;A ppropriate;Follo ws Commands [facility] Work Phone: 09-15-2022 Cognitive function Voice/Name [facility] Work Phone: 05-21-2022 Cognitive function Voice/Name [facility] Work Phone: Clinical Notes 01-11-2022 to 02-22-2025 Note Date & Type Note Facility 02-22-2025 Radiology Diagnostic study note [facility] Imaging Services [address] [place] [id number] Chest PA and Lateral MR#: [id number] Acct: [id number] Name: CAROLINA HIGHTOWER Rep #: [id number] 10 : 1975 F 49 From: Miquel Gu MD PCP: CONCHIS Victoria Status: REG E R Study:Chest PA and Lateral Date of Exam: 02/21/25 Exam# [id number] Ordering Dr: Pedrito Rosario DO PROCEDURE: CHEST PA AND LATERAL 02/22/2025 REASON FOR EXAM: COUGH TECHNIQUE: Frontal and lateral views of the chest. COMPARISON: 12/09/2023 FINDINGS: The lungs appear clear. Pulmonary vascularity appears within limits. No pleural effusion. The cardiac and mediastinal contours appear within limits. The visualized osseous structures appear within limits. RAD/Chest PA and Lateral IMPRESSION: No evidence of acute process. Reading Location: [id number] CC: CONCHIS Sandoval; Dr. Pedrito Rosario DO ~ Non Destructive Testing Scientist: Signed [facility] 02-22-2025 Radiology Diagnostic study note [facility] Imaging Services [address] [place] [address] Abdomen/Pelvis without Cont MR#: [id number] Acct: [id number] Name: CAROLINA HIGHTOWER Rep #: [id number] 09 : 1975 F 49 From: Miquel Gu MD PCP: CONCHIS Victoria Status: REG E R Study:Abdomen/Pelvis without Cont Date of Exa m: 02/21/25 Exam# [id number] Ordering Dr: Pedrito Rosario DO PROCEDURE: ABDOMEN/PELVIS WITHOUT CONT 02/22/2025 REASON FOR EXAM: PAIN TECHNIQUE: Abdomen and pelvis CT without intravenous contrast. Noncontrast technique limits evaluation of the abdominal and pelvic viscera. Coronal and Sagittal reconstruction series were provided. One or more dose reduction techniques were used (e.g., Automated exposure control, adjustment of the mA and/or kV according to patient size, use of iterative reconstruction technique). PATIENT PREPARATION: Per protocol ORAL CONTRAST TYPE: None. COMPARISON: 02/04/2025 FINDINGS: The lung bases are clear. Cirrhosis and splenomegaly with stigmata of portal hypertension with previously noted recannulation of the paraumbilical vein on prior contrast-enhanced study. Overall the amount of abdominopelvic free fluid,ascites is mildly increased now greatest area at the anterior upper pelvis axial 138 and coronal 61 for example. The amount of mesenteric and omental congested stranding appearance also appears increased. Anasarca now present. The gallbladder is distended without definite gallbladder fossa fluid seen. No evidence of biliary ductal dilation. The adrenal glands, right kidney appear within limits on noncontrast imaging. Afew small calcifications are seen at the uncinate process of the pancreas may represent sequela of previous pancreatitis. A couple of punctate nonobstructing left intrarenal stones. Abdominal aorta appears within limits on noncontrast imaging. Shotty appearing retroperitoneal and mesenteric nodes. No bowel dilation or free air. Moderate colonic stool. No obvious colonic wallthickening currently appreciated. Mild prominence of the terminal ileum is nonspecific in the setting of liver disease,can not exclude an inflammatory/infectious process. The appendix appears unchanged without features concerning for appendicitis. The uterus, adnexa and bladder appear within limits. Bilateral tubal ligation clips again noted. L5-S1 spondylosis/discogenic change again noted. CT/Abdomen/Pelvis without Cont IMPRESSION: The gallbladder is distended without definite gallbladder fossa fluid seen. No evidence of biliary ductal dilation. May represent a prolonged fasting state, nonspecific, clinically correlate Cirrhosis and splenomegaly with stigmata of portal hypertension with previously noted recannulation of the paraumbilical vein on prior contrast-enhanced study. Overall the amount of abdominopelvic free fluid, ascites is mildly increased nowgreatest area at the anterior upper pelvis axial 138 and coronal 61 for example. The amount of mesenteric and omental congested stranding appearance also appears increased. Anasarca now present. Moderate colonic stool. Mild prominence of the terminal ileum is nonspecific in the setting of liver disease, can not exclude an inflammatory/infectious process. Reading Location: [id number] CC: CONCHIS Sandoval; Dr. Pedrito Rosario DO ~ Non Destructive Testing Scientist: Signed [facility] 02-08-[address] [facility] 02-04-2025 Radiology Diagnostic study note [facility] Imaging Services [address] [place] [place] [address] Abdomen/Pelvis W IV Cont ONLY MR#: [id number] Acct: [id number] Name: CAROLINA HIGHTOWER Rep #: [id number] : 1975 F 49 From: Hernesto Burnett MD PCP: [facility] Status: REG ER Study:Abdomen/Pelvis W IV Cont ONLY Date of E xam: 02/04/25 Exam# [id number] Ordering Dr: Michi Cope DO PROCEDURE: ABDOMEN/PELVIS W IV CONT ONLY 02/04/2025 REASON FOR EXAM: ABDOMINAL PAIN TECHNIQUE: Abdomen and pelvis CT with intravenous contrast. Coronal and Sagittal reconstruction series were provided. PATIENT PREPARATION: Per protocol ORAL CONTRAST TYPE: None. CONTRAST: Isovue 3 7 VOLUME: 100 mL One or more dose reduction techniques were used (e.g., Automated exposure control, adjustment of the mA and/or kV according to patient size, use of iterative reconstruction technique. RADIATION DOSE SUMMARY: CTDlvol: 15.2 mGy DLP: 1011.5 mGycm COMPARISON: Prior study dated June 06, 2024. FINDINGS: Lung bases: Unremarkable. Liver: Diffuse fatty infiltration. Hepatomegaly. Nodular contour suggestive ofcirrhotic change. Gallbladder: Mild degree of gallbladder wall thickening. Spleen: Moderate degree of splenomegaly. Pancreas: Normal size without evidence of mass surrounding inflammation or ductal dilation. Adrenals: Unremarkable Kidneys: Normal renal sizes. No hydronephrosis. Bladder: Unremarkable Reproductive Organs: Unremarkable bilateral tubal ligation clips are noted. Bowel: Findings suggestive of colitis of the right hemicolon. Appendix: The appendix is not identified. There is no inflammatory process identified in the right lower quadrant to suggest appendicitis. Lymph nodes: Unremarkable. Vasculature: The abdominal aorta and IVC are normal. Peritoneum / Retroperitoneum: Prior anterior ventral hernia repair with a mesh. Bones: Degenerative changes of the spine. CT/Abdomen/Pelvis W IV Cont ONLY IMPRESSION: Hepatosplenomegaly. Diffuse fatty infiltration of the liver. Gallbladder wall thickening. Findings suggestive of colitis of the right hemicolon. Reading Location: [id number] CC: Dr. Michi Cope, DO; [facility] ~ Non Destructive Testing Scientist: Signed [facility] 01-23-2025 Evaluation note Diagnosis Onset Date Resolution Cirrhosis of liver chronic January 23, 2025 2:48pm Hepatitis C, chronic chronic Apri l 2024 2:48pm [facility] Work Phone: [phone]) 493-386304-24-2025 Hospital Discharge instructions Patient Education 01/17/2025 17:02:21 Cirrhosis Cirrhosis The liver is found on the right side of your belly (abdomen). It is just below the rib cage. The liver has many important jobs. It removes toxins from the blood. It also helps your blood clot to stopbleeding. Cirrhosis happens when the liver is scarred or injured. This damage is permanent. It can cause your liver to stop working (liver failure). The most common causes of cirrhosis are long-term heavy alcohol use and having hepatitis B or C. Other causes include nonalcoholic steatohepatitis (KEYES or fatty liver disease), hemochromatosis, toxins, certain medicines, and certain viruses. Common symptoms of cirrhosis include: Tiredness or weakness Loss of appetite Nausea and vomiting Easy bleeding and bruising Swelling of the belly (abdomen) Weight loss Yellowing of the eyes or skin (jaundice) Itching Confusion Treatment helps ease symptoms and prevent more liver damage. You may also get treatment to fight the hepatitis virus. Quitting alcohol will help slow down the disease getting worse. It may also prevent more complications. If cirrhosis gets worse and becomes life threatening, you may need a liver transplant. Home care Don't take medicines that can make liver damage worse. Your healthcare provider will tell you if any of the medicines you now take need to be changed. Talk with your provider or pharmacist before taking any medicine not prescribed. These include dietary supplements and herbs. Some of these may makeliver damage worse. Talk with your healthcare provider about medicines that have acetaminophen or NSAIDs such as ibuprofen and naproxen. These can also harm your liver. Stop drinking alcohol. If you find it hard to stop drinking, seek professional help. Consider joining Alcoholics Anonymous or another type of treatment program for support. If you use IV drugs, you are at high risk for hepatitis B and C. Seek help to stop. Be sure to ask your healthcare provider about recommended vaccines. These include vaccines for viruses that can cause liver disease. Follow-up care Follow up with your healthcare provider, or as advised. For more information and to learn about support groups for people with liver disease, contact: [place], www.liverfoundation.org, Hepatitis [employer] International, www.hepfi.org, When to seek medical advice Call your healthcare provider right away if you have any of the following: Rapid weight gain with increased size of your belly (abdomen) or leg swelling Yellow color of your skin or eyes (jaundice) gets worse Excess bleeding from cuts or injuries 0777-2911 [employer]. [address] [place] [address]. All rights reserved. This information is not intended as a substitute for professional medical care. Always follow yourhealthcare professional's instructions. Follow Up Care 01/17/2025 12:28:54 With:[facility] ([facility]) Address: [address] [place] [phone] Business (1) When:2-4 days With:Go to emergency room if symptoms worsen Address: When: Unknown With:FRIENDMARCELINA DO Address: [address] [place] [address] [facility] [place] [address] [phone] When:2-4 days [facility] 04-24-2025 Emergency department Discharge summary Discharge Instructions Thank you for allowing [facility] to assist you with your healthcare needs. The following is importantdischarge information regarding your hospital visit. Diagnosis from Today's Visit Cirrhosis of liver What to Do Next Instructions from Your Care Team No qualifying data available. Post Acute Orders No qualifying data available. You Need to Schedule the Following Appointments Follow Up with [facility] ([facility]) When:Within 2-4 days Where:[address] [place] [address] [phone] Business (1) Follow Up with Go to emergency room if symptoms worsen Follow Up with FRIEND, MARCELINA DO When:Within 2-4 days Where:[address] [place] [address]- [phone] Allergies Wellbutrin aspirin Hives codeine Hives Medications Please ask your primary doctor or pharmacist before taking any other medication not listed, including over the counter drugs, herbal medications, vitamins and or supplements as they may interact withyour home medications. What How Much When Instructions Last Dose Unchanged ARIPiprazole (ARIPiprazole 10 mg oral tablet) [...] mouth Two (2) times a day Unchanged ibuprofen (ibuprofen 600 [...] with all medication providers or retail pharmacies. Education Materials Cirrhosis The liver is found on the right side of your belly (abdomen). It is just below the rib cage. The liver has many important jobs. It removes toxins from the blood. It also helps your blood clot to stopbleeding. Cirrhosis happens when the liver is scarred or injured. This damage is permanent. It can cause your liver to stop working (liver failure). The most common causes of cirrhosis are long-term heavy alcohol use and having hepatitis B or C. Other causes include nonalcoholic steatohepatitis (KEYES or fatty liver disease), hemochromatosis, toxins, certain medicines, and certain viruses. Common symptoms of cirrhosis include: Tiredness or weakness Loss of appetite Nausea and vomiting Easy bleeding and bruising Swelling of the belly (abdomen) Weight loss Yellowing of the eyes or skin (jaundice) Itching Confusion Treatment helps ease symptoms and prevent more liver damage. You may also get treatment to fight the hepatitis virus. Quitting alcohol will help slow down the disease getting worse. It may also prevent more complications. If cirrhosis gets worse and becomes life threatening, you may need a liver transplant. Home care Don't take medicines that can make liver damage worse. Your healthcare provider will tell you if any of the medicines you now take need to be changed. Talk with your provider or pharmacist before taking any medicine not prescribed. These include dietary supplements and herbs. Some of these may makeliver damage worse. Talk with your healthcare provider about medicines that have acetaminophen or NSAIDs such as ibuprofen and naproxen. These can also harm your liver. Stop drinking alcohol. If you find it hard to stop drinking, seek professional help. Consider joining Alcoholics Anonymous or another type of treatment program for support. If you use IV drugs, you are at high risk for hepatitis B and C. Seek help to stop. Be sure to ask your healthcare provider about recommended vaccines. These include vaccines for viruses that can cause liver disease. Follow-up care Follow up with your healthcare provider, or as advised. For more information and to learn about support groups for people with liver disease, contact: [place], www.liverfoundation.org, Hepatitis Foundation International, www.hepfi.org, When to seek medical advice Call your healthcare provider right away if you have any of the following: Rapid weight gain with increased size of your belly (abdomen) or leg swelling Yellow color of your skin or eyes (jaundice) gets worse Excess bleeding from cuts or injuries 4272-0078 [employer]. [address] [place] [address], [place] [address]. All rights reserved. This information is not intended as a substitute for professional medical care. Always follow yourhealthcare professional's instructions. Additional Information VACCINATE! IT SAVES LIVES! Members of the community who have not yet received the COVID-19 vaccine and would like to receive it can visit one of [facility] vaccine clinics. There are many vaccine clinic locations within the [facility]. For locations and available times, please visit www.gettheshot.coronavirus.[place].gov/. It is important to note that some COVID mobile vaccine clinics are held outdoors and may be canceled in rainy or stormy conditions. To learn more about pediatric vaccinations (ages 5-11), we invite you to visit the [facility] webpage. https://www.[facility].org/pages/9432-Hgpyf-Fulmnsqfreo-Coftgvkuna-Atuus-Bhz stions.htmlTo learn more about the COVID-19 vaccine, we invite you to visit the CDC website for a list of frequently asked questions. https://www.cdc.gov/coronavirus/2019-ncov/vaccines/faq.html [facility] Patient Portal Access Instructions: Stay connected with your healthcare team and access your personal medical information anytime with the [facility] Patient Portal. If you would like a full copy of your medical records please contact the [facility] Medical Records Department Tuesday through Tuesday between 8a.m. and 4:30p.m. Please follow the directions below to access the portal: 1.Access the email account you provided upon registration to the [facility].2.Look for an invitation email from [facility].3.Open the email and access the invitation link: Accept Invitation to [facility]4.Fill in the required dhillon to create your account. Sign into www.[employer] with your username and password that you [...] you will allow to register on the [facility] Patient Portal for access to your information. You can also access the [facility] Patient Portal on the [employer] darwin. Simply click on Health Records under [employer] and then click on the [employer] logo. HOW TO SAFELY DISPOSE OF PRESCRIPTION MEDICATIONS Please use one of the following methods to safely dispose of your unused medications. 1.Use a drug disposal kit: the drug disposal pouch allows you to safely discard your old and unuseddrugs. Ask your nurse to give you one when you are discharged.2.Visit a local take-back location: Many local pharmacies and police departments have programs that collect old and unwanted prescriptiondrugs. Call your local pharmacy or go to http://[employer]/9W6Ai2d to find one close to you.3.Make use of household items: Use cat litter or old coffee grounds to dispose medications if other options arenot available. Mix your drugs with these household products, seal them in an airtight container andthrow it into the garbage. Call [facility]: [phone] to be sure your drugs can be [...] drowsiness, such as benzodiazepines, also known as benzos,including diazepam and alprazolam, muscle relaxants or sleep aids. Never sell or share prescriptionopioids. This is illegal. Store opioids in a secure place and out of reach of others (including children, family, friends and visitors). The last page(s) of this document has been signed and retained as a CHART COPY Signatures Patient Education Materials Cirrhosis Medication Leaflets My discharge plan and instructions have been reviewed and explained to me and IKATJA LAURA T understand my current condition and have read and understand these discharge instructions. I have received a written copy of the plan/instructions. If I have questions, I am aware that I should contact my doctor. 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: Date/Time: Relationship to Patient: Witness Name/Signature: Date/Time: [id number] Note* Exam Date Time Procedure Performing Provider Status 01/17/25 5:08 PM EKG (ED) - CV MD CEE, BROOKLYN DOOLEY; Auth (Verified) ECG Final Report SINUS RHYTHM Electronic Signature: MD CEE, BROOKLYN DOOLEY 01/17/2025 17:53:13 [id number] Note* Exam Date Time Procedure Performing Provider Status 01/17/25 3:15 PM XR Chest 1 View DAILY HAYES MD; Auth (Verified) [id number] ORIGINAL EXAMINATION: ONE XRAY VIEW OF THE CHEST01/17/2025 3:31 pm XR Chest portable upright COMPARISON: None HISTORY: ORDERING SYSTEM PROVIDED HISTORY: Reason for Exam: SOB, hx of cirrhosis, FINDINGS: No suspicious nodule, acute infiltrate, consolidation,mass, pneumothorax, pleural fluid, or vascular congestion is seen. Heart size and mediastinal contours are within normal limits for age and projection. No acute skeletal abnormality. IMPRESSION: No acute cardiopulmonary process. Interpreted by: Daily Hayes MD Preliminary Report By: Daily Hayes MD Electronically signed By Daily Hayes MD Dictated Date: 01/17/2025 3:36:54 PM Prelim Date: 01/17/2025 3:37:07 PM Sign Date: 01/17/2025 3:37:07 PM Ordering Provider: [facility]03-20-2025 Note* Care Plan Note - Yumiko Gardiner LPN - 12/13/2024 4:27 PM EDT Problem: Falls, Moderate Risk For Goal: Absence of falls Description: Interventions: - Non-skid footwear with ambulation - Exercise program (if applicable) for strengthening - Address the P's during each pt encounter (rounding); offer bathroom more frequently for patient on diuretics, bowel prep, etc. - Siderails up X 2 (Upper left and upper right) - Bed low position and wheels locked - Chair/wheelchair locked - Minimize line tethering - Walkway free of clutter - Nightlight on evening/night hours - Keep door to pt room open (unless contraindication, isolation, etc.) - Call light, phone, table, and/or other pt necessities in reach (pt MUST demonstrate ability to properly use call light) - Appropriate fall bracelet on at all times - Provide pt/family with fall education on admission and transfers - Reorient pt to environment as appropriate - Remind pt/family to call for assistance with each encounter Outcome: Adequate for Discharge Problem: Discharge Planning Goal: Knowledge of discharge instructions Description: Interventions: 1. Consult social work for post discharge needs 2. Education, activity restrictions 3. Education, post discharge follow up 4. Education, prescribed medication 5. Education, when to call provider 6. Education, discharge diet Outcome: Adequate for Discharge Problem: Activity Intolerance Goal: Improved activity tolerance Description: Interventions: 1. Education, prescribed activity level 2. Progressive ambulation program Outcome: Adequate for Discharge Problem: Fluid Volume, Imbalanced, Risk for Goal: Balanced intake and output Description: Interventions: 1. Body weight monitoring 2. Intake and output measurments Outcome: Adequate for Discharge Problem: Infection, Risk For, Surgical Site (General) Goal: Absence of infection signs and symptoms Description: Instructions: - Wound assessment - surgical site - Incision care - Monitor lab results - Education, hand washing - Education, incision care Outcome: Adequate for Discharge Problem: Infection, Risk for Goal: Patient will be free from infection Description: Interventions: 1. Monitor for signs and symptoms of infection: fever, increased WBC, burning with urination or chills 2. Monitor insertion site for redness, tenderness, or drainage 3. Hand hygiene per CDC guidelines 4. Discontinuation of invasive devices when not needed 5. Place patient in appropriate isolation Outcome: Adequate for Discharge Problem: Nutrition Deficit Goal: Adequate nutritional intake Description: Interventions: -Consult to auto parts handler -Intake and output measurement -Calorie count if indicated Outcome: Adequate for Discharge Goal: Body weight within specified parameters Description: Interventions: - Body weight measurement Outcome: Adequate for Discharge Problem: Pain, Acute Goal: Communication of presence of pain Description: Interventions: - Nonpharmacologic pain management - Medication administration - Education, pain scale Outcome: Adequate for Discharge Problem: Skin Integrity, Impaired, Risk for Goal: Absence of pressure injury Description: Interventions: - Skin assessment - Patient repositioning every 2 hours if decreased mobility Outcome: Adequate for Discharge Problem: Deep Venous Thrombosis, Risk of Goal: Absence of deep venous thrombosis Description: Interventions: - Deep venous thrombosis risk assessment - Ensure patient is receiving antithrombotic medication for VTE prophylaxis - Activity promotion - Graduated anti-embolic stocking management - Intermittent pneumatic compression management. Outcome: Adequate for Discharge Goal: Knowledge of deep venous thrombosis Description: Interventions: - Education, deep venous thrombosis signs and symptoms - Education, ambulation - Education, graduated anti-embolic stockings - Education, deep venous thrombosis prophalaxis Outcome: Adequate for Discharge Problem: Tobacco Use Goal: Inpatient tobacco-use cessation counseling participation Description: Interventions: - Tobacco use assessment - Tobacco use cessation counseling - Consult to lung health specialist - Education, tobacco use cessation methods Outcome: Adequate for Discharge [facility]03-[facility] Miscellaneous Notes* Care Plan Note - Yumiko Gardiner LPN - 12/13/2024 4:27 PM EDT Problem: Falls, Moderate Risk For Goal: Absence of falls Description: Interventions: - Non-skid footwear with ambulation - Exercise program (if applicable) for strengthening - Address the P's during each pt encounter (rounding); offer bathroom more frequently for patient on diuretics, bowel prep, etc. - Siderails up X 2 (Upper left and upper right) - Bed low position and wheels locked - Chair/wheelchair locked - Minimize line tethering - Walkway free of clutter - Nightlight on evening/night hours - Keep door to pt room open (unless contraindication, isolation, etc.) - Call light, phone, table, and/or other pt necessities in reach (pt MUST demonstrate ability to properly use call light) - Appropriate fall bracelet on at all times - Provide pt/family with fall education on admission and transfers - Reorient pt to environment as appropriate - Remind pt/family to call for assistance with each encounter Outcome: Adequate for Discharge Problem: Discharge Planning Goal: Knowledge of discharge instructions Description: Interventions: 1. Consult social work for post discharge needs 2. Education, activity restrictions 3. Education, post discharge follow up 4. Education, prescribed medication 5. Education, when to call provider 6. Education, discharge diet Outcome: Adequate for Discharge Problem: Activity Intolerance Goal: Improved activity tolerance Description: Interventions: 1. Education, prescribed activity level 2. Progressive ambulation program Outcome: Adequate for Discharge Problem: Fluid Volume, Imbalanced, Risk for Goal: Balanced intake and output Description: Interventions: 1. Body weight monitoring 2. Intake and output measurments Outcome: Adequate for Discharge Problem: Infection, Risk For, Surgical Site (General) Goal: Absence of infection signs and symptoms Description: Instructions: - Wound assessment - surgical site - Incision care - Monitor lab results - Education, hand washing - Education, incision care Outcome: Adequate for Discharge Problem: Infection, Risk for Goal: Patient will be free from infection Description: Interventions: 1. Monitor for signs and symptoms of infection: fever, increased WBC, burning with urination or chills 2. Monitor insertion site for redness, tenderness, or drainage 3. Hand hygiene per CDC guidelines 4. Discontinuation of invasive devices when not needed 5. Place patient in appropriate isolation Outcome: Adequate for Discharge Problem: Nutrition Deficit Goal: Adequate nutritional intake Description: Interventions: -Consult to auto parts handler -Intake and output measurement -Calorie count if indicated Outcome: Adequate for Discharge Goal: Body weight within specified parameters Description: Interventions: - Body weight measurement Outcome: Adequate for Discharge Problem: Pain, Acute Goal: Communication of presence of pain Description: Interventions: - Nonpharmacologic pain management - Medication administration - Education, pain scale Outcome: Adequate for Discharge Problem: Skin Integrity, Impaired, Risk for Goal: Absence of pressure injury Description: Interventions: - Skin assessment - Patient repositioning every 2 hours if decreased mobility Outcome: Adequate for Discharge Problem: Deep Venous Thrombosis, Risk of Goal: Absence of deep venous thrombosis Description: Interventions: - Deep venous thrombosis risk assessment - Ensure patient is receiving antithrombotic medication for VTE prophylaxis - Activity promotion - Graduated anti-embolic stocking management - Intermittent pneumatic compression management. Outcome: Adequate for Discharge Goal: Knowledge of deep venous thrombosis Description: Interventions: - Education, deep venous thrombosis signs and symptoms - Education, ambulation - Education, graduated anti-embolic stockings - Education, deep venous thrombosis prophalaxis Outcome: Adequate for Discharge Problem: Tobacco Use Goal: Inpatient tobacco-use cessation counseling participation Description: Interventions: - Tobacco use assessment - Tobacco use cessation counseling - Consult to lung health specialist - Education, tobacco use cessation methods Outcome: Adequate for Discharge * Care Plan Note - Yessenia Sarabia - 12/13/2024 10:38 AM EDT PT treatment # 1 Room: [id number] Precautions: Fall risk/Unsteadiness, Generalized weakness Weight Bearing Status - WBAT Subjected comments: Nursing cleared patient for treatment this date. Patient agreeable to PT visit. Inspection - Patient presented supine in bed upon entering room. Patient presented with LUE IV (capped). Respiratory status - room air Mental Status - Alert and Patient pleasant and cooperative during PT visit. Pain: 0/10 Bed mobility: Independent Supine to sit: Modified independent - Patient (Mat donned her own shoes while sitting on bedside. Static Sitting Balance - Good Dynamic Sitting Balance - Good Sit to stand: gait belt donned, SBA Static Standing Balance - Good, - Dynamic Standing Balance - Fair, + Gait: : Patient ambulated 200 ft.x 2 with no DME requiring SBA, CGA. Patient training completed forcorrection of decreased alcon, CHIP, and posture. No LOB seen and patient tolerated ambulation without difficulty. Stand to Sit: Supervision Sit to Supine: Supervision Therapeutic Exercise: Patient completed B LE AROM exercises in sitting on edge of bed x 15 reps x 1sets of Hip Flexion/Extension, Ankle DF/PF, and LAQ's. Additional Comments/consultations: Patient returned to her room and transferred back into bed as found with Sup assist. Patient voiced no further needs. Tray table and call light within reach. No further questions or concerns at this time. Will continue with POC per patient tolerance and collaborate with oncoming PT/senior office support assistant sosa for handoff care in preparation for D/C. Treatment time: therapeutic exercises=8 minutes / gait training=15 minutes * End of Shift Note - Liudmila William LPN - 12/13/2024 5:22 AM EDT Nursing End of Shift Summary Pertinent changes to patient conditions and/or care this shift: no Vital Signs Weight: 82.6 kg (182 lb 3.2 oz) (12/13/24 0410) Temp: 98.7 F (37.1 C) Temp Source: Oral Heart Rate:53 BP: 107/68 Respirations: 18 Oxygen Saturation SpO2: 100 % O2 Delivery: Room air O2 Device: None (Room air) O2 Flow Rate (l/min): 0 l/min Incentive Spirometry Incentive Spirometry: No Diet Diet Regular;Low Residue Intake/Output Totals Intake/Output 12/12/24 0700 - 12/13/24 0659 [id number] Total Intake P.O. 375 400 775 I.V. 0 0 0 Blood -- 0 0 Other 0 0 0 Total Intake 375 400 775 Output Urine -- 0 0 Urine -- 0 0 Weight of Briefs in mL -- 0 0 Urine Occurrence 2 x 3 x 5 x Emesis/NG output -- 0 0 Emesis -- 0 0 Emesis Occurrence 0 x 0 x 0 x Other -- 0 0 Other -- 0 0 Stool -- 0 0 Stool Occurrence 0 x 0 x 0 x Stool -- 0 0 Blood -- 0 0 Blood output -- 0 0 Total Output -- 0 0 Activity Activity: Up ad cyn Level of Assistance: Independent Activity Tolerance: Tolerated Well Ambulation Attempts this Shift: Did not ambulate this shift Telemetry Telemetry Abnormalities No Labs No results found for: FUNCTIONAL, PLTAGGREG Lab Results Component Value Date RBC 3.88 (L) 12/12/2024 WBC 4.9 12/12/2024 HCT 36.4 12/12/2024 HGB 12.6 12/12/2024 PLATELETCNT 57 (L) 12/12/2024 MCH 32.4 12/12/2024 MCHC 34.5 12/12/2024 MCV 93.8 12/12/2024 MPV 9.5 12/12/2024 Lab Results Component Value Date ALBUMIN 2.9 (L) 12/12/2024 SODIUM 137 12/12/2024 POTASSIUM 3.9 12/12/2024 CHLORIDE 109 12/12/2024 CO2 22 12/12/2024 ANIONGAP 6 12/12/2024 GLUCOSE 88 12/12/2024 CREATININE 1.0 12/12/2024 BUN 9 12/12/2024 CALCIUM 8.4 (L) 12/12/2024 PROTEINTOTAL 6.1 12/12/2024 TBILIRUBIN 1.8 (H) 12/12/2024 ALP 124 (H) 12/12/2024 AST 130 (H) 12/12/2024 ALTSGPT 72 (H) 12/12/2024 OSMOLALITY 272 12/12/2024 AGRATIO 0.9 12/12/2024 BC 9 (L) 12/12/2024 ESTIMATEDGFR 58 12/12/2024 Taking all meds Yes Any PRN meds given? No Current IV Infusions Diuretics SDOH Screen Assessed? Not Assessed Discharge Planning Home Expected Discharge Date Education Provided Other (Comment) none * Care Plan Note - Liudmila William LPN - 12/13/2024 5:22 AM EDT Problem: Falls, Moderate Risk For Goal: Absence of falls Description: Interventions: - Non-skid footwear with ambulation - Exercise program (if applicable) for strengthening - Address the P's during each pt encounter (rounding); offer bathroom more frequently for patient on diuretics, bowel prep, etc. - Siderails up X 2 (Upper left and upper right) - Bed low position and wheels locked - Chair/wheelchair locked - Minimize line tethering - Walkway free of clutter - Nightlight on evening/night hours - Keep door to pt room open (unless contraindication, isolation, etc.) - Call light, phone, table, and/or other pt necessities in reach (pt MUST demonstrate ability to properly use call light) - Appropriate fall bracelet on at all times - Provide pt/family with fall education on admission and transfers - Reorient pt to environment as appropriate - Remind pt/family to call for assistance with each encounter Outcome: Ongoing Problem: Discharge Planning Goal: Knowledge of discharge instructions Description: Interventions: 1. Consult social work for post discharge needs 2. Education, activity restrictions 3. Education, post discharge follow up 4. Education, prescribed medication 5. Education, when to call provider 6. Education, discharge diet Outcome: Ongoing Problem: Activity Intolerance Goal: Improved activity tolerance Description: Interventions: 1. Education, prescribed activity level 2. Progressive ambulation program Outcome: Ongoing Problem: Fluid Volume, Imbalanced, Risk for Goal: Balanced intake and output Description: Interventions: 1. Body weight monitoring 2. Intake and output measurments Outcome: Ongoing Problem: Infection, Risk For, Surgical Site (General) Goal: Absence of infection signs and symptoms Description: Instructions: - Wound assessment - surgical site - Incision care - Monitor lab results - Education, hand washing - Education, incision care Outcome: Ongoing Problem: Infection, Risk for Goal: Patient will be free from infection Description: Interventions: 1. Monitor for signs and symptoms of infection: fever, increased WBC, burning with urination or chills 2. Monitor insertion site for redness, tenderness, or drainage 3. Hand hygiene per CDC guidelines 4. Discontinuation of invasive devices when not needed 5. Place patient in appropriate isolation Outcome: Ongoing Problem: Nutrition Deficit Goal: Adequate nutritional intake Description: Interventions: -Consult to auto parts handler -Intake and output measurement -Calorie count if indicated Outcome: Ongoing Goal: Body weight within specified parameters Description: Interventions: - Body weight measurement Outcome: Ongoing Problem: Pain, Acute Goal: Communication of presence of pain Description: Interventions: - Nonpharmacologic pain management - Medication administration - Education, pain scale Outcome: Ongoing Problem: Skin Integrity, Impaired, Risk for Goal: Absence of pressure injury Description: Interventions: - Skin assessment - Patient repositioning every 2 hours if decreased mobility Outcome: Ongoing Problem: Deep Venous Thrombosis, Risk of Goal: Absence of deep venous thrombosis Description: Interventions: - Deep venous thrombosis risk assessment - Ensure patient is receiving antithrombotic medication for VTE prophylaxis - Activity promotion - Graduated anti-embolic stocking management - Intermittent pneumatic compression management. Outcome: Ongoing Goal: Knowledge of deep venous thrombosis Description: Interventions: - Education, deep venous thrombosis signs and symptoms - Education, ambulation - Education, graduated anti-embolic stockings - Education, deep venous thrombosis prophalaxis Outcome: Ongoing Problem: Tobacco Use Goal: Inpatient tobacco-use cessation counseling participation Description: Interventions: - Tobacco use assessment - Tobacco use cessation counseling - Consult to lung health specialist - Education, tobacco use cessation methods Outcome: Ongoing * Handoff Documentation - Yumiko Gardiner LPN - 12/12/2024 7:13 PM EDT Handoff report given to GERTRUDE Grijalva. Vitals, labs, skin integrity and events through shift discussed. All questions/concerns addressed. 12 hour chart check complete. Bedside handoff complete. Patientresting in bed, denies any needs. Call light within reach and encouraged. * End of Shift Note - Yumiko Gardiner LPN - 12/12/2024 6:22 PM EDT Nursing End of Shift Summary Pertinent changes to patient conditions and/or care this shift: none Vital Signs Weight: 82.9 kg (182 lb 12.2 oz) (12/11/24 0500) Temp: 98.6 F (37 C) Temp Source: Oral Heart Rate:74 BP: 115/64 Respirations: 18 Oxygen Saturation SpO2: 100 % O2 Delivery: Room air O2 Device: None (Room air) O2 Flow Rate (l/min): 0 l/min Incentive Spirometry Incentive Spirometry: No Diet Diet Regular;Low Residue One Time Message to Dietary Intake/Output Totals Intake/Output 12/11/24 0700 - 12/12/24 0659 12/12/24 07 - 12/13/24 0659 Total Total Intake P.O. 600 0 600 375 -- 375 I.V. -- 0 0 0 -- 0 Blood -- 0 0 -- -- -- Other -- 0 0 0 -- 0 Total Intake 600 0 600 375 -- 375 Output Urine -- 0 0 -- -- -- Urine -- 0 0 -- -- -- Weight of Briefs in mL -- 0 0 -- -- -- Urine Occurrence -- 3 x 3 x 2 x -- 2 x Emesis/NG output -- 0 0 -- -- -- Emesis -- 0 0 -- -- -- Emesis Occurrence -- 0 x 0 x 0 x -- 0 x Other -- 0 0 -- -- -- Other -- 0 0 -- -- -- Stool -- 0 0 -- -- -- Stool Occurrence -- 0 x 0 x 0 x -- 0 x Stool -- 0 0 -- -- -- Blood -- 0 0 -- -- -- Blood output -- 0 0 -- -- -- Total Output -- 0 0 -- -- -- Activity Activity: Up ad cyn Level of Assistance: Independent Activity Tolerance: Tolerated Well Ambulation Attempts this Shift: Did not ambulate this shift Telemetry Telemetry Abnormalities N/A Labs No results found for: FUNCTIONAL, PLTAGGREG Lab Results Component Value Date RBC 3.88 (L) 12/12/2024 WBC 4.9 12/12/2024 HCT 36.4 12/12/2024 HGB 12.6 12/12/2024 PLATELETCNT 57 (L) 12/12/2024 MCH 32.4 12/12/2024 MCHC 34.5 12/12/2024 MCV 93.8 12/12/2024 MPV 9.5 12/12/2024 Lab Results Component Value Date ALBUMIN 2.9 (L) 12/12/2024 SODIUM 137 12/12/2024 POTASSIUM 3.9 12/12/2024 CHLORIDE 109 12/12/2024 CO2 22 12/12/2024 ANIONGAP 6 12/12/2024 GLUCOSE 88 12/12/2024 CREATININE 1.0 12/12/2024 BUN 9 12/12/2024 CALCIUM 8.4 (L) 12/12/2024 PROTEINTOTAL 6.1 12/12/2024 TBILIRUBIN 1.8 (H) 12/12/2024 ALP 124 (H) 12/12/2024 AST 130 (H) 12/12/2024 ALTSGPT 72 (H) 12/12/2024 OSMOLALITY 272 12/12/2024 AGRATIO 0.9 12/12/2024 BC 9 (L) 12/12/2024 ESTIMATEDGFR 58 12/12/2024 Taking all meds Yes Any PRN meds given? No Current IV Infusions Diuretics SDOH Screen Assessed? Not Assessed Discharge Planning Home Expected Discharge Date Education Provided * Care Plan Note - Yumiko Gardiner LPN - 12/12/2024 6:22 PM EDT Problem: Falls, Moderate Risk For Goal: Absence of falls Description: Interventions: - Non-skid footwear with ambulation - Exercise program (if applicable) for strengthening - Address the P's during each pt encounter (rounding); offer bathroom more frequently for patient on diuretics, bowel prep, etc. - Siderails up X 2 (Upper left and upper right) - Bed low position and wheels locked - Chair/wheelchair locked - Minimize line tethering - Walkway free of clutter - Nightlight on evening/night hours - Keep door to pt room open (unless contraindication, isolation, etc.) - Call light, phone, table, and/or other pt necessities in reach (pt MUST demonstrate ability to properly use call light) - Appropriate fall bracelet on at all times - Provide pt/family with fall education on admission and transfers - Reorient pt to environment as appropriate - Remind pt/family to call for assistance with each encounter Outcome: Ongoing Problem: Discharge Planning Goal: Knowledge of discharge instructions Description: Interventions: 1. Consult social work for post discharge needs 2. Education, activity restrictions 3. Education, post discharge follow up 4. Education, prescribed medication 5. Education, when to call provider 6. Education, discharge diet Outcome: Ongoing Problem: Activity Intolerance Goal: Improved activity tolerance Description: Interventions: 1. Education, prescribed activity level 2. Progressive ambulation program Outcome: Ongoing Problem: Fluid Volume, Imbalanced, Risk for Goal: Balanced intake and output Description: Interventions: 1. Body weight monitoring 2. Intake and output measurments Outcome: Ongoing Problem: Infection, Risk For, Surgical Site (General) Goal: Absence of infection signs and symptoms Description: Instructions: - Wound assessment - surgical site - Incision care - Monitor lab results - Education, hand washing - Education, incision care Outcome: Ongoing Problem: Infection, Risk for Goal: Patient will be free from infection Description: Interventions: 1. Monitor for signs and symptoms of infection: fever, increased WBC, burning with urination or chills 2. Monitor insertion site for redness, tenderness, or drainage 3. Hand hygiene per CDC guidelines 4. Discontinuation of invasive devices when not needed 5. Place patient in appropriate isolation Outcome: Ongoing Problem: Nutrition Deficit Goal: Adequate nutritional intake Description: Interventions: -Consult to auto parts handler -Intake and output measurement -Calorie count if indicated Outcome: Ongoing Goal: Body weight within specified parameters Description: Interventions: - Body weight measurement Outcome: Ongoing Problem: Pain, Acute Goal: Communication of presence of pain Description: Interventions: - Nonpharmacologic pain management - Medication administration - Education, pain scale Outcome: Ongoing Problem: Skin Integrity, Impaired, Risk for Goal: Absence of pressure injury Description: Interventions: - Skin assessment - Patient repositioning every 2 hours if decreased mobility Outcome: Ongoing Problem: Deep Venous Thrombosis, Risk of Goal: Absence of deep venous thrombosis Description: Interventions: - Deep venous thrombosis risk assessment - Ensure patient is receiving antithrombotic medication for VTE prophylaxis - Activity promotion - Graduated anti-embolic stocking management - Intermittent pneumatic compression management. Outcome: Ongoing Goal: Knowledge of deep venous thrombosis Description: Interventions: - Education, deep venous thrombosis signs and symptoms - Education, ambulation - Education, graduated anti-embolic stockings - Education, deep venous thrombosis prophalaxis Outcome: Ongoing Problem: Tobacco Use Goal: Inpatient tobacco-use cessation counseling participation Description: Interventions: - Tobacco use assessment - Tobacco use cessation counseling - Consult to lung health specialist - Education, tobacco use cessation methods Outcome: Ongoing * Care Plan Note - Valentine Nieves LPN - 12/12/2024 6:16 AM EDT Problem: Falls, Moderate Risk For Goal: Absence of falls Description: Interventions: - Non-skid footwear with ambulation - Exercise program (if applicable) for strengthening - Address the P's during each pt encounter (rounding); offer bathroom more frequently for patient on diuretics, bowel prep, etc. - Siderails up X 2 (Upper left and upper right) - Bed low position and wheels locked - Chair/wheelchair locked - Minimize line tethering - Walkway free of clutter - Nightlight on evening/night hours - Keep door to pt room open (unless contraindication, isolation, etc.) - Call light, phone, table, and/or other pt necessities in reach (pt MUST demonstrate ability to properly use call light) - Appropriate fall bracelet on at all times - Provide pt/family with fall education on admission and transfers - Reorient pt to environment as appropriate - Remind pt/family to call for assistance with each encounter Outcome: Ongoing Problem: Discharge Planning Goal: Knowledge of discharge instructions Description: Interventions: 1. Consult social work for post discharge needs 2. Education, activity restrictions 3. Education, post discharge follow up 4. Education, prescribed medication 5. Education, when to call provider 6. Education, discharge diet Outcome: Ongoing Problem: Activity Intolerance Goal: Improved activity tolerance Description: Interventions: 1. Education, prescribed activity level 2. Progressive ambulation program Outcome: Ongoing Problem: Fluid Volume, Imbalanced, Risk for Goal: Balanced intake and output Description: Interventions: 1. Body weight monitoring 2. Intake and output measurments Outcome: Ongoing Problem: Infection, Risk For, Surgical Site (General) Goal: Absence of infection signs and symptoms Description: Instructions: - Wound assessment - surgical site - Incision care - Monitor lab results - Education, hand washing - Education, incision care Outcome: Ongoing Problem: Infection, Risk for Goal: Patient will be free from infection Description: Interventions: 1. Monitor for signs and symptoms of infection: fever, increased WBC, burning with urination or chills 2. Monitor insertion site for redness, tenderness, or drainage 3. Hand hygiene per CDC guidelines 4. Discontinuation of invasive devices when not needed 5. Place patient in appropriate isolation Outcome: Ongoing Problem: Nutrition Deficit Goal: Adequate nutritional intake Description: Interventions: -Consult to auto parts handler -Intake and output measurement -Calorie count if indicated Outcome: Ongoing Goal: Body weight within specified parameters Description: Interventions: - Body weight measurement Outcome: Ongoing Problem: Pain, Acute Goal: Communication of presence of pain Description: Interventions: - Nonpharmacologic pain management - Medication administration - Education, pain scale Outcome: Ongoing Problem: Skin Integrity, Impaired, Risk for Goal: Absence of pressure injury Description: Interventions: - Skin assessment - Patient repositioning every 2 hours if decreased mobility Outcome: Ongoing Problem: Deep Venous Thrombosis, Risk of Goal: Absence of deep venous thrombosis Description: Interventions: - Deep venous thrombosis risk assessment - Ensure patient is receiving antithrombotic medication for VTE prophylaxis - Activity promotion - Graduated anti-embolic stocking management - Intermittent pneumatic compression management. Outcome: Ongoing Goal: Knowledge of deep venous thrombosis Description: Interventions: - Education, deep venous thrombosis signs and symptoms - Education, ambulation - Education, graduated anti-embolic stockings - Education, deep venous thrombosis prophalaxis Outcome: Ongoing Problem: Tobacco Use Goal: Inpatient tobacco-use cessation counseling participation Description: Interventions: - Tobacco use assessment - Tobacco use cessation counseling - Consult to lung health specialist - Education, tobacco use cessation methods Outcome: Ongoing * End of Shift Note - Valentine Nieves LPN - 12/12/2024 6:16 AM EDT Nursing End of Shift Summary Pertinent changes to patient conditions and/or care this shift: N/A Vital Signs Weight: 82.9 kg (182 lb 12.2 oz) (12/11/24 0500) Temp: 98.8 F (37.1 C) Temp Source: Oral Heart Rate:54 BP: 103/63 Respirations: 20 Oxygen Saturation SpO2: 100 % O2 Delivery: Room air O2 Device: None (Room air) O2 Flow Rate (l/min): 0 l/min Incentive Spirometry Incentive Spirometry: No Diet Diet NPO; Intake/Output Totals Intake/Output 12/11/24 0700 - 12/12/24 0659 [id number] Total Intake P.O. 600 0 600 I.V. -- 0 0 Blood -- 0 0 Other -- 0 0 Total Intake 600 0 600 Output Urine -- 0 0 Urine -- 0 0 Weight of Briefs in mL -- 0 0 Urine Occurrence -- 3 x 3 x Emesis/NG output -- 0 0 Emesis -- 0 0 Emesis Occurrence -- 0 x 0 x Other -- 0 0 Other -- 0 0 Stool -- 0 0 Stool Occurrence -- 0 x 0 x Stool -- 0 0 Blood -- 0 0 Blood output -- 0 0 Total Output -- 0 0 Activity Activity: Up ad cyn Level of Assistance: Independent Activity Tolerance: Tolerated Well Ambulation Attempts this Shift: Did not ambulate this shift Telemetry Telemetry Abnormalities No Labs No results found for: FUNCTIONAL, PLTAGGREG Lab Results Component Value Date RBC 3.62 (L) 12/11/2024 WBC 4.3 (L) 12/11/2024 HCT 34.3 12/11/2024 HGB 11.8 (L) 12/11/2024 PLATELETCNT 52 (L) 12/11/2024 MCH 32.5 12/11/2024 MCHC 34.3 12/11/2024 MCV 94.6 12/11/2024 MPV 9.4 12/11/2024 Lab Results Component Value Date ALBUMIN 2.9 (L) 12/12/2024 SODIUM 137 12/12/2024 POTASSIUM 3.9 12/12/2024 CHLORIDE 109 12/12/2024 CO2 22 12/12/2024 ANIONGAP 6 12/12/2024 GLUCOSE 88 12/12/2024 CREATININE 1.0 12/12/2024 BUN 9 12/12/2024 CALCIUM 8.4 (L) 12/12/2024 PROTEINTOTAL 6.1 12/12/2024 TBILIRUBIN 1.8 (H) 12/12/2024 ALP 124 (H) 12/12/2024 AST 130 (H) 12/12/2024 ALTSGPT 72 (H) 12/12/2024 OSMOLALITY 272 12/12/2024 AGRATIO 0.9 12/12/2024 BC 9 (L) 12/12/2024 ESTIMATEDGFR 58 12/12/2024 Taking all meds Yes Any PRN meds given? No Current IV Infusions Diuretics SDOH Screen Assessed? Not Assessed Discharge Planning Home Expected Discharge Date Education Provided Other (Comment) Fall prevention * Adv. Directive - Mary Haynes BSW - 12/11/2024 10:39 AM EDT Identified Next of Kin/Decision Maker: Vannesa Hightower (Daughter) [phone] (H) Comments: If there comes a time the patient is unable to make their own medical decisions, the above named is the closest living relative for decision making purposes. Mary NAM Social Work * Care Plan Note - Mary Haynes BSW - 12/11/2024 10:38 AM EDT SW DISCHARGE/TREATMENT PLAN: 12/11/24 Pt to return to [facility] [phone] 1. Anticipate DC to home once medically stable. 2. Pt defers HH 3. SW to follow. Mary NAM Social Work * Care Plan Note - Valentine Nieves LPN - 12/11/2024 6:25 AM EDT Problem: Falls, Moderate Risk For Goal: Absence of falls Description: Interventions: - Non-skid footwear with ambulation - Exercise program (if applicable) for strengthening - Address the P's during each pt encounter (rounding); offer bathroom more frequently for patient on diuretics, bowel prep, etc. - Siderails up X 2 (Upper left and upper right) - Bed low position and wheels locked - Chair/wheelchair locked - Minimize line tethering - Walkway free of clutter - Nightlight on evening/night hours - Keep door to pt room open (unless contraindication, isolation, etc.) - Call light, phone, table, and/or other pt necessities in reach (pt MUST demonstrate ability to properly use call light) - Appropriate fall bracelet on at all times - Provide pt/family with fall education on admission and transfers - Reorient pt to environment as appropriate - Remind pt/family to call for assistance with each encounter Outcome: Ongoing Problem: Discharge Planning Goal: Knowledge of discharge instructions Description: Interventions: 1. Consult social work for post discharge needs 2. Education, activity restrictions 3. Education, post discharge follow up 4. Education, prescribed medication 5. Education, when to call provider 6. Education, discharge diet Outcome: Ongoing Problem: Activity Intolerance Goal: Improved activity tolerance Description: Interventions: 1. Education, prescribed activity level 2. Progressive ambulation program Outcome: Ongoing Problem: Fluid Volume, Imbalanced, Risk for Goal: Balanced intake and output Description: Interventions: 1. Body weight monitoring 2. Intake and output measurments Outcome: Ongoing Problem: Infection, Risk For, Surgical Site (General) Goal: Absence of infection signs and symptoms Description: Instructions: - Wound assessment - surgical site - Incision care - Monitor lab results - Education, hand washing - Education, incision care Outcome: Ongoing Problem: Infection, Risk for Goal: Patient will be free from infection Description: Interventions: 1. Monitor for signs and symptoms of infection: fever, increased WBC, burning with urination or chills 2. Monitor insertion site for redness, tenderness, or drainage 3. Hand hygiene per CDC guidelines 4. Discontinuation of invasive devices when not needed 5. Place patient in appropriate isolation Outcome: Ongoing Problem: Nutrition Deficit Goal: Adequate nutritional intake Description: Interventions: -Consult to auto parts handler -Intake and output measurement -Calorie count if indicated Outcome: Ongoing Goal: Body weight within specified parameters Description: Interventions: - Body weight measurement Outcome: Ongoing Problem: Pain, Acute Goal: Communication of presence of pain Description: Interventions: - Nonpharmacologic pain management - Medication administration - Education, pain scale Outcome: Ongoing Problem: Skin Integrity, Impaired, Risk for Goal: Absence of pressure injury Description: Interventions: - Skin assessment - Patient repositioning every 2 hours if decreased mobility Outcome: Ongoing Problem: Deep Venous Thrombosis, Risk of Goal: Absence of deep venous thrombosis Description: Interventions: - Deep venous thrombosis risk assessment - Ensure patient is receiving antithrombotic medication for VTE prophylaxis - Activity promotion - Graduated anti-embolic stocking management - Intermittent pneumatic compression management. Outcome: Ongoing Goal: Knowledge of deep venous thrombosis Description: Interventions: - Education, deep venous thrombosis signs and symptoms - Education, ambulation - Education, graduated anti-embolic stockings - Education, deep venous thrombosis prophalaxis Outcome: Ongoing Problem: Tobacco Use Goal: Inpatient tobacco-use cessation counseling participation Description: Interventions: - Tobacco use assessment - Tobacco use cessation counseling - Consult to lung health specialist - Education, tobacco use cessation methods Outcome: Ongoing * End of Shift Note - Valentine Nieves LPN - 12/11/2024 6:25 AM EDT Nursing End of Shift Summary Pertinent changes to patient conditions and/or care this shift: N/A Vital Signs Weight: 82.9 kg (182 lb 12.2 oz) (12/11/24 0500) Temp: 97.8 F (36.6 C) Temp Source: Oral Heart Rate:51 BP: (!) 79/44 Respirations: 16 Oxygen Saturation SpO2: 100 % O2 Delivery: Room air O2 Device: None (Room air) O2 Flow Rate (l/min): 0 l/min Incentive Spirometry Incentive Spirometry: No Diet Diet Regular;Fluid 1500cc; NA 2000mg Intake/Output Totals Intake/Output 12/10/24 0700 - 12/11/24 0659 [id number] 5130-2723 Total Intake P.O. 350 360 710 I.V. -- 0 0 Blood -- 0 0 Other -- 0 0 Total Intake 350 360 710 Output Urine -- 0 0 Urine -- 0 0 Weight of Briefs in mL -- 0 0 Urine Occurrence 1 x 2 x 3 x Emesis/NG output -- 0 0 Emesis -- 0 0 Emesis Occurrence 0 x 0 x 0 x Other -- 0 0 Other -- 0 0 Stool -- 0 0 Stool Occurrence 0 x 0 x 0 x Stool -- 0 0 Blood -- 0 0 Blood output -- 0 0 Total Output -- 0 0 Activity Activity: Up ad cyn Level of Assistance: Independent Activity Tolerance: Tolerated Well Ambulation Attempts this Shift: Did not ambulate this shift Telemetry Telemetry Abnormalities No Labs No results found for: FUNCTIONAL, PLTAGGREG Lab Results Component Value Date RBC 3.77 (L) 12/10/2024 WBC 4.7 12/10/2024 HCT 35.1 12/10/2024 HGB 12.2 12/10/2024 PLATELETCNT 55 (L) 12/10/2024 MCH 32.3 12/10/2024 MCHC 34.7 12/10/2024 MCV 93.0 12/10/2024 MPV 9.5 12/10/2024 Lab Results Component Value Date ALBUMIN 2.6 (L) 12/11/2024 SODIUM 138 12/11/2024 POTASSIUM 3.9 12/11/2024 CHLORIDE 111 12/11/2024 CO2 22 12/11/2024 ANIONGAP 5 12/11/2024 GLUCOSE 83 12/11/2024 CREATININE 0.9 12/11/2024 BUN 10 12/11/2024 CALCIUM 8.3 (L) 12/11/2024 PROTEINTOTAL 5.8 (L) 12/11/2024 TBILIRUBIN 1.8 (H) 12/11/2024 ALP 113 12/11/2024 AST 112 (H) 12/11/2024 ALTSGPT 65 (H) 12/11/2024 OSMOLALITY 274 12/11/2024 AGRATIO 0.8 12/11/2024 BC 11 12/11/2024 ESTIMATEDGFR 66 12/11/2024 Taking all meds Yes Any PRN meds given? No Current IV Infusions Diuretics SDOH Screen Assessed? Not Assessed Discharge Planning Home Expected Discharge Date Education Provided Other (Comment) Fall prevention * Care Plan Note - Chilo Henry LPN - 12/10/2024 6:43 PM EDT Problem: Falls, Moderate Risk For Goal: Absence of falls Description: Interventions: - Non-skid footwear with ambulation - Exercise program (if applicable) for strengthening - Address the P's during each pt encounter (rounding); offer bathroom more frequently for patient on diuretics, bowel prep, etc. - Siderails up X 2 (Upper left and upper right) - Bed low position and wheels locked - Chair/wheelchair locked - Minimize line tethering - Walkway free of clutter - Nightlight on evening/night hours - Keep door to pt room open (unless contraindication, isolation, etc.) - Call light, phone, table, and/or other pt necessities in reach (pt MUST demonstrate ability to properly use call light) - Appropriate fall bracelet on at all times - Provide pt/family with fall education on admission and transfers - Reorient pt to environment as appropriate - Remind pt/family to call for assistance with each encounter Outcome: Ongoing Problem: Discharge Planning Goal: Knowledge of discharge instructions Description: Interventions: 1. Consult social work for post discharge needs 2. Education, activity restrictions 3. Education, post discharge follow up 4. Education, prescribed medication 5. Education, when to call provider 6. Education, discharge diet Outcome: Ongoing Problem: Activity Intolerance Goal: Improved activity tolerance Description: Interventions: 1. Education, prescribed activity level 2. Progressive ambulation program Outcome: Ongoing Problem: Fluid Volume, Imbalanced, Risk for Goal: Balanced intake and output Description: Interventions: 1. Body weight monitoring 2. Intake and output measurments Outcome: Ongoing Problem: Infection, Risk For, Surgical Site (General) Goal: Absence of infection signs and symptoms Description: Instructions: - Wound assessment - surgical site - Incision care - Monitor lab results - Education, hand washing - Education, incision care Outcome: Ongoing Problem: Infection, Risk for Goal: Patient will be free from infection Description: Interventions: 1. Monitor for signs and symptoms of infection: fever, increased WBC, burning with urination or chills 2. Monitor insertion site for redness, tenderness, or drainage 3. Hand hygiene per CDC guidelines 4. Discontinuation of invasive devices when not needed 5. Place patient in appropriate isolation Outcome: Ongoing Problem: Nutrition Deficit Goal: Adequate nutritional intake Description: Interventions: -Consult to auto parts handler -Intake and output measurement -Calorie count if indicated Outcome: Ongoing Goal: Body weight within specified parameters Description: Interventions: - Body weight measurement Outcome: Ongoing Problem: Pain, Acute Goal: Communication of presence of pain Description: Interventions: - Nonpharmacologic pain management - Medication administration - Education, pain scale Outcome: Ongoing Problem: Skin Integrity, Impaired, Risk for Goal: Absence of pressure injury Description: Interventions: - Skin assessment - Patient repositioning every 2 hours if decreased mobility Outcome: Ongoing Problem: Deep Venous Thrombosis, Risk of Goal: Absence of deep venous thrombosis Description: Interventions: - Deep venous thrombosis risk assessment - Ensure patient is receiving antithrombotic medication for VTE prophylaxis - Activity promotion - Graduated anti-embolic stocking management - Intermittent pneumatic compression management. Outcome: Ongoing Goal: Knowledge of deep venous thrombosis Description: Interventions: - Education, deep venous thrombosis signs and symptoms - Education, ambulation - Education, graduated anti-embolic stockings - Education, deep venous thrombosis prophalaxis Outcome: Ongoing Problem: Tobacco Use Goal: Inpatient tobacco-use cessation counseling participation Description: Interventions: - Tobacco use assessment - Tobacco use cessation counseling - Consult to lung health specialist - Education, tobacco use cessation methods Outcome: Ongoing * End of Shift Note - Chilo Henry LPN - 12/10/2024 6:42 PM EDT Nursing End of Shift Summary Pertinent changes to patient conditions and/or care this shift: N\o Vital Signs Weight: 84.5 kg (186 lb 4.8 oz) (12/10/24 0115) Temp: 98.3 F (36.8 C) Temp Source: Oral Heart Rate:59 BP: 113/82 Respirations: 16 Oxygen Saturation SpO2: 100 % O2 Delivery: Room air O2 Device: None (Room air) O2 Flow Rate (l/min): 0 l/min Incentive Spirometry Diet Diet Regular;Fluid 1500cc; NA 2000mg Intake/Output Totals Intake/Output 12/09/24 0700 - 12/10/24 0659 (Not Admitted) 12/10/24 0700 - 12/11/24 0659 [id number] 6078-1461 Total 2513-7729 1854-7426 Total Intake P.O. -- -- -- 350 -- 350 I.V. -- 100 100 -- -- -- Total Intake -- 100 100 350 -- 350 Output Urine -- -- -- -- -- -- Urine Occurrence -- -- -- 1 x -- 1 x Emesis/NG output -- -- -- -- -- -- Emesis Occurrence -- -- -- 0 x -- 0 x Stool -- -- -- -- -- -- Stool Occurrence -- -- -- 0 x -- 0 x Total Output -- -- -- -- -- -- Activity Ambulation Attempts this Shift: Did not ambulate this shift Telemetry Telemetry Abnormalities No Labs No results found for: FUNCTIONAL, PLTAGGREG Lab Results Component Value Date RBC 3.77 (L) 12/10/2024 WBC 4.7 12/10/2024 HCT 35.1 12/10/2024 HGB 12.2 12/10/2024 PLATELETCNT 55 (L) 12/10/2024 MCH 32.3 12/10/2024 MCHC 34.7 12/10/2024 MCV 93.0 12/10/2024 MPV 9.5 12/10/2024 Lab Results Component Value Date ALBUMIN 2.7 (L) 12/10/2024 SODIUM 136 12/10/2024 POTASSIUM 3.8 12/10/2024 CHLORIDE 112 (H) 12/10/2024 CO2 21 12/10/2024 ANIONGAP 3 12/10/2024 GLUCOSE 82 12/10/2024 CREATININE 0.8 12/10/2024 BUN 7 12/10/2024 CALCIUM 8.6 12/10/2024 PROTEINTOTAL 5.9 (L) 12/10/2024 TBILIRUBIN 2.6 (H) 12/10/2024 ALP 121 12/10/2024 AST 109 (H) 12/10/2024 ALTSGPT 67 (H) 12/10/2024 OSMOLALITY 269 12/10/2024 AGRATIO 0.8 12/10/2024 BC 9 (L) 12/10/2024 ESTIMATEDGFR 76 12/10/2024 Taking all meds Yes Any PRN meds given? No Current IV Infusions Diuretics SDOH Screen Assessed? Not Assessed Discharge Planning Home Expected Discharge Date Education Provided * Care Plan Note - Gwyn Garsia RN - 12/10/2024 5:31 PM EDT Problem: Falls, Moderate Risk For Goal: Absence of falls Description: Interventions: - Non-skid footwear with ambulation - Exercise program (if applicable) for strengthening - Address the P's during each pt encounter (rounding); offer bathroom more frequently for patient on diuretics, bowel prep, etc. - Siderails up X 2 (Upper left and upper right) - Bed low position and wheels locked - Chair/wheelchair locked - Minimize line tethering - Walkway free of clutter - Nightlight on evening/night hours - Keep door to pt room open (unless contraindication, isolation, etc.) - Call light, phone, table, and/or other pt necessities in reach (pt MUST demonstrate ability to properly use call light) - Appropriate fall bracelet on at all times - Provide pt/family with fall education on admission and transfers - Reorient pt to environment as appropriate - Remind pt/family to call for assistance with each encounter Outcome: Progress Met Problem: Discharge Planning Goal: Knowledge of discharge instructions Description: Interventions: 1. Consult social work for post discharge needs 2. Education, activity restrictions 3. Education, post discharge follow up 4. Education, prescribed medication 5. Education, when to call provider 6. Education, discharge diet Outcome: Progress Met Problem: Activity Intolerance Goal: Improved activity tolerance Description: Interventions: 1. Education, prescribed activity level 2. Progressive ambulation program Outcome: Ongoing Problem: Fluid Volume, Imbalanced, Risk for Goal: Balanced intake and output Description: Interventions: 1. Body weight monitoring 2. Intake and output measurments Outcome: Ongoing Problem: Infection, Risk For, Surgical Site (General) Goal: Absence of infection signs and symptoms Description: Instructions: - Wound assessment - surgical site - Incision care - Monitor lab results - Education, hand washing - Education, incision care Outcome: Ongoing Problem: Infection, Risk for Goal: Patient will be free from infection Description: Interventions: 1. Monitor for signs and symptoms of infection: fever, increased WBC, burning with urination or chills 2. Monitor insertion site for redness, tenderness, or drainage 3. Hand hygiene per CDC guidelines 4. Discontinuation of invasive devices when not needed 5. Place patient in appropriate isolation Outcome: Ongoing Problem: Nutrition Deficit Goal: Adequate nutritional intake Description: Interventions: -Consult to auto parts handler -Intake and output measurement -Calorie count if indicated Outcome: Ongoing Goal: Body weight within specified parameters Description: Interventions: - Body weight measurement Outcome: Ongoing Problem: Pain, Acute Goal: Communication of presence of pain Description: Interventions: - Nonpharmacologic pain management - Medication administration - Education, pain scale Outcome: Ongoing Problem: Skin Integrity, Impaired, Risk for Goal: Absence of pressure injury Description: Interventions: - Skin assessment - Patient repositioning every 2 hours if decreased mobility Outcome: Ongoing Problem: Deep Venous Thrombosis, Risk of Goal: Absence of deep venous thrombosis Description: Interventions: - Deep venous thrombosis risk assessment - Ensure patient is receiving antithrombotic medication for VTE prophylaxis - Activity promotion - Graduated anti-embolic stocking management - Intermittent pneumatic compression management. Outcome: Ongoing Goal: Knowledge of deep venous thrombosis Description: Interventions: - Education, deep venous thrombosis signs and symptoms - Education, ambulation - Education, graduated anti-embolic stockings - Education, deep venous thrombosis prophalaxis Outcome: Ongoing Problem: Tobacco Use Goal: Inpatient tobacco-use cessation counseling participation Description: Interventions: - Tobacco use assessment - Tobacco use cessation counseling - Consult to lung health specialist - Education, tobacco use cessation methods Outcome: Ongoing [facility]* Care Plan Note - Yessenia Sarabia - 12/13/2024 10:38 AM EDT PT treatment # 1 Room: [facility] Precautions: Fall risk/Unsteadiness, Generalized weakness Weight Bearing Status - WBAT Subjected comments: Nursing cleared patient for treatment this date. Patient agreeable to PT visit. Inspection - Patient presented supine in bed upon entering room. Patient presented with LUE IV (capped). Respiratory status - room air Mental Status - Alert and Patient pleasant and cooperative during PT visit. Pain: 0/10 Bed mobility: Independent Supine to sit: Modified independent - Patient (Mat donned her own shoes while sitting on bedside. Static Sitting Balance - Good Dynamic Sitting Balance - Good Sit to stand: gait belt donned, SBA Static Standing Balance - Good, - Dynamic Standing Balance - Fair, + Gait: : Patient ambulated 200 ft.x 2 with no DME requiring SBA, CGA. Patient training completed forcorrection of decreased alcon, CHIP, and posture. No LOB seen and patient tolerated ambulation without difficulty. Stand to Sit: Supervision Sit to Supine: Supervision Therapeutic Exercise: Patient completed B LE AROM exercises in sitting on edge of bed x 15 reps x 1sets of Hip Flexion/Extension, Ankle DF/PF, and LAQ's. Additional Comments/consultations: Patient returned to her room and transferred back into bed as found with Sup assist. Patient voiced no further needs. Tray table and call light within reach. No further questions or concerns at this time. Will continue with POC per patient tolerance and collaborate with oncoming PT/senior office support assistant sosa for handoff care in preparation for D/C. Treatment time: therapeutic exercises=8 minutes / gait training=15 minutes [facility]* End of Shift Note - Liudmila William LPN - 12/13/2024 5:22 AM EDT Nursing End of Shift Summary Pertinent changes to patient conditions and/or care this shift: no Vital Signs Weight: 82.6 kg (182 lb 3.2 oz) (12/13/24 0410) Temp: 98.7 F (37.1 C) Temp Source: Oral Heart Rate:53 BP: 107/68 Respirations: 18 Oxygen Saturation SpO2: 100 % O2 Delivery: Room air O2 Device: None (Room air) O2 Flow Rate (l/min): 0 l/min Incentive Spirometry Incentive Spirometry: No Diet Diet Regular;Low Residue Intake/Output Totals Intake/Output 12/12/24 0700 - 12/13/24 [id number] 7570-5324 Total Intake P.O. 375 400 775 I.V. 0 0 0 Blood -- 0 0 Other 0 0 0 Total Intake 375 400 775 Output Urine -- 0 0 Urine -- 0 0 Weight of Briefs in mL -- 0 0 Urine Occurrence 2 x 3 x 5 x Emesis/NG output -- 0 0 Emesis -- 0 0 Emesis Occurrence 0 x 0 x 0 x Other -- 0 0 Other -- 0 0 Stool -- 0 0 Stool Occurrence 0 x 0 x 0 x Stool -- 0 0 Blood -- 0 0 Blood output -- 0 0 Total Output -- 0 0 Activity Activity: Up ad cyn Level of Assistance: Independent Activity Tolerance: Tolerated Well Ambulation Attempts this Shift: Did not ambulate this shift Telemetry Telemetry Abnormalities No Labs No results found for: FUNCTIONAL, PLTAGGREG Lab Results Component Value Date RBC 3.88 (L) 12/12/2024 WBC 4.9 12/12/2024 HCT 36.4 12/12/2024 HGB 12.6 12/12/2024 PLATELETCNT 57 (L) 12/12/2024 MCH 32.4 12/12/2024 MCHC 34.5 12/12/2024 MCV 93.8 12/12/2024 MPV 9.5 12/12/2024 Lab Results Component Value Date ALBUMIN 2.9 (L) 12/12/2024 SODIUM 137 12/12/2024 POTASSIUM 3.9 12/12/2024 CHLORIDE 109 12/12/2024 CO2 22 12/12/2024 ANIONGAP 6 12/12/2024 GLUCOSE 88 12/12/2024 CREATININE 1.0 12/12/2024 BUN 9 12/12/2024 CALCIUM 8.4 (L) 12/12/2024 PROTEINTOTAL 6.1 12/12/2024 TBILIRUBIN 1.8 (H) 12/12/2024 ALP 124 (H) 12/12/2024 AST 130 (H) 12/12/2024 ALTSGPT 72 (H) 12/12/2024 OSMOLALITY 272 12/12/2024 AGRATIO 0.9 12/12/2024 BC 9 (L) 12/12/2024 ESTIMATEDGFR 58 12/12/2024 Taking all meds Yes Any PRN meds given? No Current IV Infusions Diuretics SDOH Screen Assessed? Not Assessed Discharge Planning Home Expected Discharge Date Education Provided Other (Comment) none [facility]* Care Plan Note - Liudmila William LPN - 12/13/2024 5:22 AM EDT Problem: Falls, Moderate Risk For Goal: Absence of falls Description: Interventions: - Non-skid footwear with ambulation - Exercise program (if applicable) for strengthening - Address the P's during each pt encounter (rounding); offer bathroom more frequently for patient on diuretics, bowel prep, etc. - Siderails up X 2 (Upper left and upper right) - Bed low position and wheels locked - Chair/wheelchair locked - Minimize line tethering - Walkway free of clutter - Nightlight on evening/night hours - Keep door to pt room open (unless contraindication, isolation, etc.) - Call light, phone, table, and/or other pt necessities in reach (pt MUST demonstrate ability to properly use call light) - Appropriate fall bracelet on at all times - Provide pt/family with fall education on admission and transfers - Reorient pt to environment as appropriate - Remind pt/family to call for assistance with each encounter Outcome: Ongoing Problem: Discharge Planning Goal: Knowledge of discharge instructions Description: Interventions: 1. Consult social work for post discharge needs 2. Education, activity restrictions 3. Education, post discharge follow up 4. Education, prescribed medication 5. Education, when to call provider 6. Education, discharge diet Outcome: Ongoing Problem: Activity Intolerance Goal: Improved activity tolerance Description: Interventions: 1. Education, prescribed activity level 2. Progressive ambulation program Outcome: Ongoing Problem: Fluid Volume, Imbalanced, Risk for Goal: Balanced intake and output Description: Interventions: 1. Body weight monitoring 2. Intake and output measurments Outcome: Ongoing Problem: Infection, Risk For, Surgical Site (General) Goal: Absence of infection signs and symptoms Description: Instructions: - Wound assessment - surgical site - Incision care - Monitor lab results - Education, hand washing - Education, incision care Outcome: Ongoing Problem: Infection, Risk for Goal: Patient will be free from infection Description: Interventions: 1. Monitor for signs and symptoms of infection: fever, increased WBC, burning with urination or chills 2. Monitor insertion site for redness, tenderness, or drainage 3. Hand hygiene per CDC guidelines 4. Discontinuation of invasive devices when not needed 5. Place patient in appropriate isolation Outcome: Ongoing Problem: Nutrition Deficit Goal: Adequate nutritional intake Description: Interventions: -Consult to auto parts handler -Intake and output measurement -Calorie count if indicated Outcome: Ongoing Goal: Body weight within specified parameters Description: Interventions: - Body weight measurement Outcome: Ongoing Problem: Pain, Acute Goal: Communication of presence of pain Description: Interventions: - Nonpharmacologic pain management - Medication administration - Education, pain scale Outcome: Ongoing Problem: Skin Integrity, Impaired, Risk for Goal: Absence of pressure injury Description: Interventions: - Skin assessment - Patient repositioning every 2 hours if decreased mobility Outcome: Ongoing Problem: Deep Venous Thrombosis, Risk of Goal: Absence of deep venous thrombosis Description: Interventions: - Deep venous thrombosis risk assessment - Ensure patient is receiving antithrombotic medication for VTE prophylaxis - Activity promotion - Graduated anti-embolic stocking management - Intermittent pneumatic compression management. Outcome: Ongoing Goal: Knowledge of deep venous thrombosis Description: Interventions: - Education, deep venous thrombosis signs and symptoms - Education, ambulation - Education, graduated anti-embolic stockings - Education, deep venous thrombosis prophalaxis Outcome: Ongoing Problem: Tobacco Use Goal: Inpatient tobacco-use cessation counseling participation Description: Interventions: - Tobacco use assessment - Tobacco use cessation counseling - Consult to lung health specialist - Education, tobacco use cessation methods Outcome: Ongoing [facility]* Handoff Documentation - Yumiko Gardiner LPN - 12/12/2024 7:13 PM EDT Handoff report given to GERTRUDE Grijalva. Vitals, labs, skin integrity and events through shift discussed. All questions/concerns addressed. 12 hour chart check complete. Bedside handoff complete. Patientresting in bed, denies any needs. Call light within reach and encouraged. [facility]* End of Shift Note - Yumiko Gardiner LPN - 12/12/2024 6:22 PM EDT Nursing End of Shift Summary Pertinent changes to patient conditions and/or care this shift: none Vital Signs Weight: 82.9 kg (182 lb 12.2 oz) (12/11/24 0500) Temp: 98.6 F (37 C) Temp Source: Oral Heart Rate:74 BP: 115/64 Respirations: 18 Oxygen Saturation SpO2: 100 % O2 Delivery: Room air O2 Device: None (Room air) O2 Flow Rate (l/min): 0 l/min Incentive Spirometry Incentive Spirometry: No Diet Diet Regular;Low Residue One Time Message to Dietary Intake/Output Totals Intake/Output 12/11/24 07 - 12/12/24 0659 12/12/24699 - 12/13/24 0659 [phone] 1980-4530 Total [id number] 0497-0414 Total Intake P.O. 600 0 600 375 -- 375 I.V. -- 0 0 0 -- 0 Blood -- 0 0 -- -- -- Other -- 0 0 0 -- 0 Total Intake 600 0 600 375 -- 375 Output Urine -- 0 0 -- -- -- Urine -- 0 0 -- -- -- Weight of Briefs in mL -- 0 0 -- -- -- Urine Occurrence -- 3 x 3 x 2 x -- 2 x Emesis/NG output -- 0 0 -- -- -- Emesis -- 0 0 -- -- -- Emesis Occurrence -- 0 x 0 x 0 x -- 0 x Other -- 0 0 -- -- -- Other -- 0 0 -- -- -- Stool -- 0 0 -- -- -- Stool Occurrence -- 0 x 0 x 0 x -- 0 x Stool -- 0 0 -- -- -- Blood -- 0 0 -- -- -- Blood output -- 0 0 -- -- -- Total Output -- 0 0 -- -- -- Activity Activity: Up ad cyn Level of Assistance: Independent Activity Tolerance: Tolerated Well Ambulation Attempts this Shift: Did not ambulate this shift Telemetry Telemetry Abnormalities N/A Labs No results found for: FUNCTIONAL, PLTAGGREG Lab Results Component Value Date RBC 3.88 (L) 12/12/2024 WBC 4.9 12/12/2024 HCT 36.4 12/12/2024 HGB 12.6 12/12/2024 PLATELETCNT 57 (L) 12/12/2024 MCH 32.4 12/12/2024 MCHC 34.5 12/12/2024 MCV 93.8 12/12/2024 MPV 9.5 12/12/2024 Lab Results Component Value Date ALBUMIN 2.9 (L) 12/12/2024 SODIUM 137 12/12/2024 POTASSIUM 3.9 12/12/2024 CHLORIDE 109 12/12/2024 CO2 22 12/12/2024 ANIONGAP 6 12/12/2024 GLUCOSE 88 12/12/2024 CREATININE 1.0 12/12/2024 BUN 9 12/12/2024 CALCIUM 8.4 (L) 12/12/2024 PROTEINTOTAL 6.1 12/12/2024 TBILIRUBIN 1.8 (H) 12/12/2024 ALP 124 (H) 12/12/2024 AST 130 (H) 12/12/2024 ALTSGPT 72 (H) 12/12/2024 OSMOLALITY 272 12/12/2024 AGRATIO 0.9 12/12/2024 BC 9 (L) 12/12/2024 ESTIMATEDGFR 58 12/12/2024 Taking all meds Yes Any PRN meds given? No Current IV Infusions Diuretics SDOH Screen Assessed? Not Assessed Discharge Planning Home Expected Discharge Date Education Provided [facility]* Care Plan Note - Yumiko Gardiner LPN - 12/12/2024 6:22 PM EDT Problem: Falls, Moderate Risk For Goal: Absence of falls Description: Interventions: - Non-skid footwear with ambulation - Exercise program (if applicable) for strengthening - Address the P's during each pt encounter (rounding); offer bathroom more frequently for patient on diuretics, bowel prep, etc. - Siderails up X 2 (Upper left and upper right) - Bed low position and wheels locked - Chair/wheelchair locked - Minimize line tethering - Walkway free of clutter - Nightlight on evening/night hours - Keep door to pt room open (unless contraindication, isolation, etc.) - Call light, phone, table, and/or other pt necessities in reach (pt MUST demonstrate ability to properly use call light) - Appropriate fall bracelet on at all times - Provide pt/family with fall education on admission and transfers - Reorient pt to environment as appropriate - Remind pt/family to call for assistance with each encounter Outcome: Ongoing Problem: Discharge Planning Goal: Knowledge of discharge instructions Description: Interventions: 1. Consult social work for post discharge needs 2. Education, activity restrictions 3. Education, post discharge follow up 4. Education, prescribed medication 5. Education, when to call provider 6. Education, discharge diet Outcome: Ongoing Problem: Activity Intolerance Goal: Improved activity tolerance Description: Interventions: 1. Education, prescribed activity level 2. Progressive ambulation program Outcome: Ongoing Problem: Fluid Volume, Imbalanced, Risk for Goal: Balanced intake and output Description: Interventions: 1. Body weight monitoring 2. Intake and output measurments Outcome: Ongoing Problem: Infection, Risk For, Surgical Site (General) Goal: Absence of infection signs and symptoms Description: Instructions: - Wound assessment - surgical site - Incision care - Monitor lab results - Education, hand washing - Education, incision care Outcome: Ongoing Problem: Infection, Risk for Goal: Patient will be free from infection Description: Interventions: 1. Monitor for signs and symptoms of infection: fever, increased WBC, burning with urination or chills 2. Monitor insertion site for redness, tenderness, or drainage 3. Hand hygiene per CDC guidelines 4. Discontinuation of invasive devices when not needed 5. Place patient in appropriate isolation Outcome: Ongoing Problem: Nutrition Deficit Goal: Adequate nutritional intake Description: Interventions: -Consult to auto parts handler -Intake and output measurement -Calorie count if indicated Outcome: Ongoing Goal: Body weight within specified parameters Description: Interventions: - Body weight measurement Outcome: Ongoing Problem: Pain, Acute Goal: Communication of presence of pain Description: Interventions: - Nonpharmacologic pain management - Medication administration - Education, pain scale Outcome: Ongoing Problem: Skin Integrity, Impaired, Risk for Goal: Absence of pressure injury Description: Interventions: - Skin assessment - Patient repositioning every 2 hours if decreased mobility Outcome: Ongoing Problem: Deep Venous Thrombosis, Risk of Goal: Absence of deep venous thrombosis Description: Interventions: - Deep venous thrombosis risk assessment - Ensure patient is receiving antithrombotic medication for VTE prophylaxis - Activity promotion - Graduated anti-embolic stocking management - Intermittent pneumatic compression management. Outcome: Ongoing Goal: Knowledge of deep venous thrombosis Description: Interventions: - Education, deep venous thrombosis signs and symptoms - Education, ambulation - Education, graduated anti-embolic stockings - Education, deep venous thrombosis prophalaxis Outcome: Ongoing Problem: Tobacco Use Goal: Inpatient tobacco-use cessation counseling participation Description: Interventions: - Tobacco use assessment - Tobacco use cessation counseling - Consult to lung health specialist - Education, tobacco use cessation methods Outcome: Ongoing [facility]03-19-2025 History of Present illness Narrative* Isabella Ch MD - 12/12/2024 2:42 PM EDT HOSPITAL MEDICINE PROGRESS NOTE Patient: Carolina Hightower Room: [facility] Admit Date: 12/10/2024 Hospital Day: LOS: 0 days Current Date: 12/12/2024 Chief Complaint - follow-up for Cirrhosis of liver with ascites SUBJECTIVE/INTERVAL HISTORY Patient underwent MRI MRCP. OBJECTIVE DATA Intake/Output Summary (Last 24 hours) at 12/12/2024 1442 Last data filed at 12/12/2024 1200 Gross per 24 hour Intake 360 ml Output 0 ml Net 360 ml Last 5 Weights 12/10/24 0115 12/11/24 0500 Weight: 84.5 kg (186 lb 4.8 oz) 82.9 kg (182 lb 12.2 oz) Physical Exam for 12/12/2024 Blood pressure 125/73, pulse 51, temperature 98.4 F (36.9 C), temperature source Skin, resp. rate 18, height 5' 2 (157.5 cm), weight 82.9 kg (182 lb 12.2 oz), SpO2 100%. Physical Exam Vitals reviewed. Constitutional: Appearance: She is obese. HENT: Nose: Nose normal. Mouth/Throat: Mouth: Mucous membranes are moist. Eyes: General: Right eye: No discharge. Left eye: No discharge. Conjunctiva/sclera: Conjunctivae normal. Cardiovascular: Rate and Rhythm: Normal rate. Pulmonary: Effort: Pulmonary effort is normal. Abdominal: General: There is distension. Palpations: Abdomen is soft. Musculoskeletal: General: No tenderness. Cervical back: No tenderness. Skin: General: Skin is warm. Findings: No rash. Neurological: Mental Status: She is alert. Mental status is at baseline. Psychiatric: Mood and Affect: Mood normal. LABS AND IMAGING Lab Results Component Value Date HGB 12.6 12/12/2024 HGB 11.8 (L) 12/11/2024 HGB 12.2 12/10/2024 Lab Results Component Value Date WBC 4.9 12/12/2024 HGB 12.6 12/12/2024 HCT 36.4 12/12/2024 MCV 93.8 12/12/2024 Lab Results Component Value Date SODIUM 137 12/12/2024 POTASSIUM 3.9 12/12/2024 MAGNESIUM 1.6 (L) 09/27/2024 CHLORIDE 109 12/12/2024 CO2 22 12/12/2024 GLUCOSE 88 12/12/2024 BUN 9 12/12/2024 CREATININE 1.0 12/12/2024 CALCIUM 8.4 (L) 12/12/2024 TBILIRUBIN 1.8 (H) 12/12/2024 ALP 124 (H) 12/12/2024 AST 130 (H) 12/12/2024 ALBUMIN 2.9 (L) 12/12/2024 Current medications: gabapentin 300 mg Oral BID cefTRIAXone 2 g Intravenous Q24H rifAXIMin 550 mg Oral BID furosemide 40 mg Oral DAILY Spironolactone 100 mg Oral DAILY lactulose 30 g Oral TID pantoprazole 40 mg Oral DAILY busPIRone 10 mg Oral TID FLUoxetine 20 mg Oral DAILY Lactobacillus rhamnosus GG 1 Capsule Oral BID sodium chloride flush 10 mL Intravenous Q8H PRN: traMADoL methocarbamoL traZODone ipratropium-albuteroL sodium chloride flush potassium chloride SA magnesium sulfate in water .CALCIUM GLUCONATE IV piggyback (gluconate) - orderable acetaminophen acetaminophen Imaging and Procedures X-ray lumbar spine: Findings: Vertebral bodies are normal in height and shows no evidence of acute compression fracture.. No evidence of spondylolisthesis. Visualized pedicles, spinous process and paraspinal soft tissue appears unremarkable. A decreased L5/S1 disc space height noted. The rest of the disc spaces are normal in height. IMPRESSION: Stable with no acute osseous finding. Ultrasound right upper quadrant abdomen: FINDINGS: The gallbladder is distended. There is gallbladder wall thickening at 6 mm. There is pericholecystic fluid. Negative sonographic Wellington's sign is reported at the time of examination. The common duct is measured at 7.2 mm. The liver is heterogeneous and nodular consistent with cirrhosis. There is ascites. There is enlargement of the main portal vein to 1.9 cm. No discrete liver lesions are identified. The right kidney shows no evidence hydronephrosis. The right renal echotexture is within normal limits. The visualized portion of the pancreas is unremarkable. IMPRESSION: Gallbladder distention with no definite stones identified. There is gallbladder wall thickening and pericholecystic fluid. This could be related to surrounding ascites/protein state. Clinical correlation is suggested. Heterogeneous and nodular liver consistent with cirrhosis. Ascites. Portal vein enlargement raising the question of portal hypertension.. MRI MRCP: FINDINGS: Motion artifact degrades the study. The liver is heterogeneous and nodular consistent with cirrhosis. There are no focal enhancing masses identified. There is splenomegaly. There is a small amount of ascites. Dedicated MRCP images show no evidence of intrahepatic, or extrahepatic biliary ductal dilatation. There is no evidence of choledocholithiasis. The main pancreatic duct is normal caliber. The pancreas is unremarkable. The kidneys show no evidence hydronephrosis, or proximal hydroureter. Postcontrast images show no evidence of abnormal enhancement. Included osseous structures are overall intact. Included subcutaneous soft tissues show no discrete abnormalities. IMPRESSION: Cirrhosis with ascites and splenomegaly ASSESSMENT AND PLAN Problems: Principal Problem: Cirrhosis of liver with ascites Active Problems: Abdominal pain Abdominal pain Rule out SBP Liver cirrhosis with ascites Patient underwent paracentesis 450 cc removed -Ascitic fluid preliminary no growth -Ceftriaxone 2 g IV -Continue Lasix Aldactone -Rifaximin, lactulose -GI consulted -AFP 41.23 NG/mL -MRI MRCP cirrhosis with ascites and splenomegaly Low back pain -X-ray lumbar spine negative for acute pathology -Resume home medication tramadol and Robaxin -PT eval Mood disorder-BuSpar, Prozac DVT ppx: SCD Disposition: Pending --- Medications reviewed. Labs reviewed Signed, Isabella Ch MD 12/12/2024 2:42 PM * Valentine Nieves LPN - 12/12/2024 6:16 AM EDT Patient laying in bed.Patient has been up as cyn tonight. Bed in lowest position, call light withinreach, table at bedside, rails x2, and non skid footwear on. Room cleared of any hazards. Will continue to monitor patient and vitals this shift. * Bebo Lozada RT(R) - 12/11/2024 8:59 PM EDT Called 3C for MRI screening form. * Valentine Nieves LPN - 12/11/2024 7:00 PM EDT Bedside report received from Will. LOREDO. Pt alert and oriented x3. No signs of acute distress. Call light within reach. Bed in lowest position. * Katharina Welsh MD - 12/11/2024 5:26 PM EDT Gastroenterology Progress Note Patient:Carolina Hightower :1975 Admit Date:12/10/2024 LOS: LOS: 0 days Subjective: Chief Complaint:follow up cirrhosis Interval History: Continues to have back pain. Denies any lethargy or confusion. Abdomen is distended, plans for repeat para tomorrow. Objective: Last Recorded Vital Signs: Temp: 98 F (36.7 C) Pulse: 57 BP: 119/59 Respirations: 16 SpO2: 97 % O2 Flow Rate (l/min): 0 l/min Intake/Output Summary (Last 24 hours) at 12/11/2024 1726 Last data filed at 12/11/2024 1538 Gross per 24 hour Intake 960 ml Output 0 ml Net 960 ml Pertinent Labs: CBC: Lab Results Component Value Date/Time WBC 4.3 12/11/2024 0437 RBC 3.62 12/11/2024 0437 HGB 11.8 12/11/2024 0437 HCT 34.3 12/11/2024 0437 MCV 94.6 12/11/2024 0437 MCH 32.5 12/11/2024 0437 MCHC 34.3 12/11/2024 0437 RDW 17.7 12/11/2024 0437 MPV 9.4 12/11/2024 0437 PLATELETCNT 52 12/11/2024 0437 CMP: Lab Results Component Value Date/Time SODIUM 138 12/11/2024 0438 POTASSIUM 3.9 12/11/2024 0438 CHLORIDE 111 12/11/2024 0438 CO2 22 12/11/2024 0438 GLUCOSE 83 12/11/2024 0438 BUN 10 12/11/2024 0438 CREATININE 0.9 12/11/2024 0438 CALCIUM 8.3 12/11/2024 0438 PROTEINTOTAL 5.8 12/11/2024 0438 TBILIRUBIN 1.8 12/11/2024 0438 ALP 113 12/11/2024 0438 AST 112 12/11/2024 0438 ALTSGPT 65 12/11/2024 0438 ALBUMIN 2.6 12/11/2024 0438 AGRATIO 0.8 12/11/2024 0438 Imaging:Reviewed Physical Exam: General Appearance: alert, no distress HEENT: slight scleral icterus Lungs: clear to auscultation bilaterally, diminished in bases Heart: S1, S2 normal Abdomen: ascites, BS present. Extremities: extremities normal, atraumatic, no cyanosis or edema Neuro: alert and oriented. Principal Problem: Cirrhosis of liver with ascites Active Problems: Abdominal pain Assessment/Plan: Patient discussed with Dr. Welsh. Per Dr Welsh, orders as follow: 1. Decompensated HCV cirrhosis with ascites. + EV. No overt HE, no asterixis. AFP 41.23 on most recent check. MELD 17. Recent RUQ US without reported hepatic lesions. - Daily CBC, CMP, PT/INR for MELD monitoring -Continue Aldactone 100 mg and Lasix 40 mg daily - Continue Lactulose, titrate for 3-4 loose BMs daily. - Continue Xifaxan 550 mg PO BID - Paracentesis as indicated - Continue Rocephin for SBP prophylaxis. - 2 gram sodium diet, 1500 mL fluid restriction - MRI abdomen ordered for HCC surveillance d/t elevated AFP - EGD as outpatient for EV screening - Further management pending clinical course 2. Abdominal pain, consider secondary to above - Total Nuc cell 172. - On Rocephin for Prophylaxis 3. Chronic Hepatitis C - Last HCV 38,400 in October 2023 - No prior treatment. - Encouraged to follow up in clinic for treatment and/or further management. Signed: Lyssa Farrell APRN 12/11/2024 The patient was seen independently by REGULATORY AFFAIRS CONSULTANT however the patient's plan/recommendations were discussed with me and approved. The patient was not evaluated by me. Signed: Katharina Welsh M.D., MD 12/12/2024 5:45 PM * Isabella Ch MD - 12/11/2024 4:26 PM EDT HOSPITAL MEDICINE PROGRESS NOTE Patient: Carolina Hightower Room: [id number] Admit Date: 12/10/2024 Hospital Day: LOS: 0 days Current Date: 12/11/2024 Chief Complaint - follow-up for Cirrhosis of liver with ascites SUBJECTIVE/INTERVAL HISTORY Patient complains of low back pain. Resume home medication tramadol and Robaxin. X-ray lumbar spinestable with no acute osseous findings. OBJECTIVE DATA Intake/Output Summary (Last 24 hours) at 12/11/2024 1626 Last data filed at 12/11/2024 1538 Gross per 24 hour Intake 1310 ml Output 0 ml Net 1310 ml Last 5 Weights 12/10/24 0115 12/11/24 0500 Weight: 84.5 kg (186 lb 4.8 oz) 82.9 kg (182 lb 12.2 oz) Physical Exam for 12/11/2024 Blood pressure 117/74, pulse 56, temperature 98.3 F (36.8 C), temperature source Oral, resp. rate 16, height 5' 2 (157.5 cm), weight 82.9 kg (182 lb 12.2 oz), SpO2 98%. Physical Exam Vitals reviewed. Constitutional: Appearance: She is obese. HENT: Nose: Nose normal. Mouth/Throat: Mouth: Mucous membranes are moist. Eyes: General: Right eye: No discharge. Left eye: No discharge. Conjunctiva/sclera: Conjunctivae normal. Cardiovascular: Rate and Rhythm: Normal rate. Pulmonary: Effort: Pulmonary effort is normal. Abdominal: General: There is distension. Palpations: Abdomen is soft. Musculoskeletal: General: No tenderness. Cervical back: No tenderness. Skin: General: Skin is warm. Findings: No rash. Neurological: Mental Status: She is alert. Mental status is at baseline. Psychiatric: Mood and Affect: Mood normal. LABS AND IMAGING Lab Results Component Value Date HGB 11.8 (L) 12/11/2024 HGB 12.2 12/10/2024 HGB 12.6 12/10/2024 Lab Results Component Value Date WBC 4.3 (L) 12/11/2024 HGB 11.8 (L) 12/11/2024 HCT 34.3 12/11/2024 MCV 94.6 12/11/2024 Lab Results Component Value Date SODIUM 138 12/11/2024 POTASSIUM 3.9 12/11/2024 MAGNESIUM 1.6 (L) 09/27/2024 CHLORIDE 111 12/11/2024 CO2 22 12/11/2024 GLUCOSE 83 12/11/2024 BUN 10 12/11/2024 CREATININE 0.9 12/11/2024 CALCIUM 8.3 (L) 12/11/2024 TBILIRUBIN 1.8 (H) 12/11/2024 ALP 113 12/11/2024 AST 112 (H) 12/11/2024 ALBUMIN 2.6 (L) 12/11/2024 Current medications: gabapentin 300 mg Oral BID cefTRIAXone 2 g Intravenous Q24H rifAXIMin 550 mg Oral BID furosemide 40 mg Oral DAILY Spironolactone 100 mg Oral DAILY lactulose 30 g Oral TID pantoprazole 40 mg Oral DAILY busPIRone 10 mg Oral TID FLUoxetine 20 mg Oral DAILY Lactobacillus rhamnosus GG 1 Capsule Oral BID sodium chloride flush 10 mL Intravenous Q8H PRN: traMADoL methocarbamoL traZODone ipratropium-albuteroL sodium chloride flush potassium chloride SA magnesium sulfate in water .CALCIUM GLUCONATE IV piggyback (gluconate) - orderable acetaminophen acetaminophen Imaging and Procedures X-ray lumbar spine: Findings: Vertebral bodies are normal in height and shows no evidence of acute compression fracture.. No evidence of spondylolisthesis. Visualized pedicles, spinous process and paraspinal soft tissue appears unremarkable. A decreased L5/S1 disc space height noted. The rest of the disc spaces are normal in height. IMPRESSION: Stable with no acute osseous finding. Ultrasound right upper quadrant abdomen: FINDINGS: The gallbladder is distended. There is gallbladder wall thickening at 6 mm. There is pericholecystic fluid. Negative sonographic Wellington's sign is reported at the time of examination. The common duct is measured at 7.2 mm. The liver is heterogeneous and nodular consistent with cirrhosis. There is ascites. There is enlargement of the main portal vein to 1.9 cm. No discrete liver lesions are identified. The right kidney shows no evidence hydronephrosis. The right renal echotexture is within normal limits. The visualized portion of the pancreas is unremarkable. IMPRESSION: Gallbladder distention with no definite stones identified. There is gallbladder wall thickening and pericholecystic fluid. This could be related to surrounding ascites/protein state. Clinical correlation is suggested. Heterogeneous and nodular liver consistent with cirrhosis. Ascites. Portal vein enlargement raising the question of portal hypertension.. ASSESSMENT AND PLAN Problems: Principal Problem: Cirrhosis of liver with ascites Active Problems: Abdominal pain Abdominal pain Rule out SBP Liver cirrhosis with ascites Patient underwent paracentesis for 50 cc removed -Ascitic fluid cultures in process -Ceftriaxone 2 g IV -Continue Lasix Aldactone -Rifaximin, lactulose -GI consulted -AFP 41.23 NG/mL -MRI MRCP ordered Low back pain -X-ray lumbar spine negative for acute pathology -Resume home medication tramadol and Robaxin -PT eval Mood disorder-BuSpar, Prozac DVT ppx: SCD Disposition: Pending --- Medications reviewed. Labs reviewed Signed, Isabella Ch MD 12/11/2024 4:26 PM * Valentine Nieves LPN - 12/11/2024 6:25 AM EDT Patient laying in bed.Patient has been up as cyn tonight. Bed in lowest position, call light withinreach, table at bedside, rails x2, and non skid footwear on. Room cleared of any hazards. Will continue to monitor patient and vitals this shift. * Valentine Nieves LPN - 12/10/2024 7:00 PM EDT Bedside report received from GERTRUDE Chao. Pt alert and oriented x3. No signs of acute distress. Call light within reach. Bed in lowest position. * Isabella Ch MD - 12/10/2024 2:50 PM EDT Patient admitted today H&P completed today Vitals: 12/10/24 1109 BP: 106/60 Pulse: 58 Resp: 18 Temp: 98.5 F (36.9 C) 1. Abdominal pain 2. Ascites 3. Lower back pain -IR paracentesis 450 mL removed Continue antibiotic -GI consulted and following -Monitor vitals -Continue management as outlined in H&P Isabella Ch 12/10/24 * Chilo Henry LPN - 12/10/2024 10:02 AM EDT Patient arrived to 3, showing no signs and symptoms of acute distress, a/o X3, call light and bed side table in reach, bed in lowest locked position and side rails up X2. Pt states no needs at this time. Will monitor closely. documented in this [facility]03-19-2025 Consult note* Tomer Kilpatrick, PT - 12/12/2024 2:23 PM EDT PT Functional Evaluation Patient: Carolina Hightower Admitted: 12/10/2024 1:01 AM Height: 5' 2 (157.5 cm) Weight: 82.9 kg (182 lb 12.2 oz) BMI (Calculated): 33.4 Age: 49 y.o. LOS: 0 days Room # - [id number] General Information Current Hospital Problem List - Principal Problem: Cirrhosis of liver with ascites Active Problems: Abdominal pain PMH - Past Medical History: Diagnosis Date Ascites Bipolar disorder Chronic hepatitis C virus infection Cirrhosis Kidney stone PSH - Past Surgical History: Procedure Laterality Date HX EGJ N/A 09/07/2024 EGD /C BIOPSY performed by Katharina Welsh MD at [facility] HX EGJ 09/07/2024 EGD /C BAND LIGATION VARICES performed by Katharina Welsh MD at [facility] HX LIVER BIOPSY HX POST STERILIZATION PARACENTESIS N/A 07/02/2024 Paracentesis performed by Max Rico MD at [facility] PARACENTESIS N/A 07/09/2024 Paracentesis performed by Ginger Milton MD at [facility] PARACENTESIS N/A 07/19/2024 Paracentesis performed by Minda Gómez MD at [facility] PARACENTESIS N/A 07/26/2024 Paracentesis performed by Max Rico MD at [facility] PARACENTESIS N/A 08/02/2024 Paracentesis performed by Ginger Milton MD at [facility] PARACENTESIS N/A 08/09/2024 Paracentesis performed by Minda Gómez MD at [facility] PARACENTESIS N/A 08/16/2024 Paracentesis performed by Ginger Milton MD at [facility] PARACENTESIS N/A 08/22/2024 Paracentesis performed by Max Rico MD at [facility] PARACENTESIS N/A 08/30/2024 Paracentesis performed by Minda Gómez MD at [facility] PARACENTESIS N/A 09/04/2024 Paracentesis performed by Ginger Milton MD at [facility] PARACENTESIS N/A 09/13/2024 Paracentesis performed by Max Rico MD at [facility] PARACENTESIS N/A 09/20/2024 Paracentesis performed by Minda Gómez MD at [facility] PARACENTESIS N/A 09/27/2024 Paracentesis performed by Ginger Milton MD at [facility] PARACENTESIS N/A 10/03/2024 Paracentesis performed by Max Rico MD at [facility] PARACENTESIS N/A 10/18/2024 Paracentesis performed by Ginger Milton MD at [facility] PARACENTESIS N/A 11/28/2024 Paracentesis performed by Minda Gómez MD at [facility] PARACENTESIS N/A 12/06/2024 Paracentesis performed by Max Rico MD at [facility] PARACENTESIS N/A 12/10/2024 Paracentesis performed by Ginger Milton MD at [facility] ULTRASOUND GUIDANCE N/A 07/02/2024 Ultrasound Guidance performed by Max Rico MD at [facility] ULTRASOUND GUIDANCE N/A 07/09/2024 Ultrasound Guidance performed by Ginger Milton MD at [facility] ULTRASOUND GUIDANCE N/A 07/19/2024 Ultrasound Guidance performed by Minda Gómez MD at [facility] ULTRASOUND GUIDANCE N/A 07/26/2024 Ultrasound Guidance performed by Max Rico MD at [facility] ULTRASOUND GUIDANCE N/A 08/02/2024 Ultrasound Guidance performed by Ginger Milton MD at [facility] ULTRASOUND GUIDANCE N/A 08/09/2024 Ultrasound Guidance performed by Minda Gómez MD at [facility] ULTRASOUND GUIDANCE N/A 08/16/2024 Ultrasound Guidance performed by Ginger Milton MD at [facility] ULTRASOUND GUIDANCE N/A 08/22/2024 Ultrasound Guidance performed by Max Rico MD at [facility] ULTRASOUND GUIDANCE N/A 08/30/2024 Ultrasound Guidance performed by Minda Gómez MD at [facility] ULTRASOUND GUIDANCE N/A 09/04/2024 Ultrasound Guidance performed by Ginger Milton MD at [facility] ULTRASOUND GUIDANCE N/A 09/13/2024 Ultrasound Guidance performed by Max Rico MD at [facility] ULTRASOUND GUIDANCE N/A 09/20/2024 Ultrasound Guidance performed by Minda Gómez MD at [facility] ULTRASOUND GUIDANCE N/A 09/27/2024 Ultrasound Guidance performed by Ginger Milton MD at [facility] ULTRASOUND GUIDANCE N/A 10/03/2024 Ultrasound Guidance performed by Max Rico MD at [facility] ULTRASOUND GUIDANCE N/A 10/18/2024 Ultrasound Guidance performed by Ginger Milton MD at [facility] ULTRASOUND GUIDANCE N/A 10/30/2024 Ultrasound Guidance performed by Minda Gómez MD at [facility] ULTRASOUND GUIDANCE N/A 11/28/2024 Ultrasound Guidance performed by Minda Gómez MD at [facility] ULTRASOUND GUIDANCE N/A 12/06/2024 Ultrasound Guidance performed by Max Rico MD at [facility] ULTRASOUND GUIDANCE N/A 12/10/2024 Ultrasound Guidance performed by Ginger Milton MD [facility] [facility] Attending Physicians - Isabella Ch MD PT Order - Orders Placed This Encounter Procedures PT Eval and Treat -Debility - Standing Status: Standing Number of Occurrences: 1 Order Specific Question: Reason for PT Eval Answer: Debility Surgical Intervention - Paracentesis on 12/10/24. [place] [address] Radiology PATIENT NAME: Carolina Hightower MR#: [id number] PROCEDURE DATE: 12/10/2024 ROOM#: [id number] ORDERING PHYS: Miranda Marques PROCEDURE: Right upper quadrant ultrasound: CLINICAL INFORMATION: cirrhosis, elevated AFP. COMPARISON: CT 09/04/2024. TECHNIQUE: Real-time, astorga-scale ultrasound imaging of the gallbladder/right upper quadrant was performed. FINDINGS: The gallbladder is distended. There is gallbladder wall thickening at 6 mm. There is pericholecystic fluid. Negative sonographic Wellington's sign is reported at the time of examination. The common duct is measured at 7.2 mm. The liver is heterogeneous and nodular consistent with cirrhosis. There is ascites. There is enlargement of the main portal vein to 1.9 cm. No discrete liver lesions are identified. The right kidney shows no evidence hydronephrosis. The right renal echotexture is within normal limits. The visualized portion of the pancreas is unremarkable. IMPRESSION: Gallbladder distention with no definite stones identified. There is gallbladder wall thickening and pericholecystic fluid. This could be related to surrounding ascites/protein state. Clinical correlation is suggested. Heterogeneous and nodular liver consistent with cirrhosis. Ascites. Portal vein enlargement raising the question of portal hypertension.. THIS IS AN ELECTRONICALLY VERIFIED REPORT 12/10/2024 2:10 PM: MD Saud Zimmer MD jp TD: 12/10/2024 JOB #: [id number] Radiology Page 1 of 1 COPY Non Destructive Testing Scientist: Read by: [place] [address] Radiology PATIENT NAME: Carolina Hightower MR#: [id number] PROCEDURE DATE: 12/11/2024 ROOM#: [id number] ORDERING PHYS: Isabella Ch Clinical history: Low back pain. Compared with 09/02/2024. Lumbar spine 3 Views. Findings: Vertebral bodies are normal in height and shows no evidence of acute compression fracture.. No evidence of spondylolisthesis. Visualized pedicles, spinous process and paraspinal soft tissue appears unremarkable. A decreased L5/S1 disc space height noted. The rest of the disc spaces are normal in height. IMPRESSION: Stable with no acute osseous finding. This note is generated using voice recognition computer software. Inadverent errors may have occurred while dictating note. Common sense approach is appreciated. THIS IS AN ELECTRONICALLY VERIFIED REPORT 12/11/2024 1:58 PM: MD Bill Parmar MD dd TD: 12/11/2024 JOB #: [id number] Radiology Page 1 of 1 COPY Non Destructive Testing Scientist: Read by: [place] [address] Radiology PATIENT NAME: Carolina Hightower MR#: [id number] PROCEDURE DATE: 12/12/2024 ROOM#: [id number] ORDERING PHYS: Lyssa Farrell PROCEDURE: MRI ABDOMEN W WO CONTRAST MRCP CLINICAL INFORMATION: Jaundice, fatty liver, elevated AFP COMPARISON: None TECHNIQUE: Multiecho and multisequence magnetic resonance imaging of the abdomen was performed with and without contrast. FINDINGS: Motion artifact degrades the study. The liver is heterogeneous and nodular consistent with cirrhosis. There are no focal enhancing masses identified. There is splenomegaly. There is a small amount of ascites. Dedicated MRCP images show no evidence of intrahepatic, or extrahepatic biliary ductal dilatation. There is no evidence of choledocholithiasis. The main pancreatic duct is normal caliber. The pancreas is unremarkable. The kidneys show no evidence hydronephrosis, or proximal hydroureter. Postcontrast images show no evidence of abnormal enhancement. Included osseous structures are overall intact. Included subcutaneous soft tissues show no discrete abnormalities. IMPRESSION: Cirrhosis with ascites and splenomegaly THIS IS AN ELECTRONICALLY VERIFIED REPORT 12/12/2024 11:58 AM: MD Saud Zimmer MD arlen TD: 12/12/2024 JOB #: [id number] Radiology Page 1 of 1 COPY Non Destructive Testing Scientist: Read by: Saud Pierre MD Diagnostic/Lab Tests - HBG: Lab Results Component Value Date/Time HGB 12.6 12/12/2024 0358 Glucose: Lab Results Component Value Date/Time GLUCOSE 88 12/12/2024 0358 Coagulation: Lab Results Component Value Date/Time APTT 41.3 12/10/2024 0402 PROTIME 20.1 12/10/2024 0402 INR 1.7 12/10/2024 0402 Urinalysis: No results found for this visit on 12/10/24 (from the past 72 hour(s)). Precautions - Fall risk/Unsteadiness, Generalized weakness Weight Bearing Status - WBAT Subjective Subjective Comments - Patient agreeable to PT evaluation. RN cleared. The patient was found L sidelying in bed with head of bed slightly elevated. Pain - The patient states that she has moderate pain in her lumbar spine that has been present for about one year. Prior Level of Function - The patient states that she lives at the [facility] in [place]. She states that she was independent with all ADLs and ambulation with no AD. The patient states that she has not had any falls in the past year. Available Medical, Assistive & Adaptive Equipment - None Social history/discharge plans - Anticipate discharge home Objective Inspection - No signs of distress observed. VSS and WNL. LUE PIV (capped). Respiratory status - Room Air. Mental Status - alert and oriented x 3. Follows all directions appropriately, pleasant and cooperative. Skin - Warm and dry. No wounds observed. Sensation - Intact ROM UE - Bilateral - Grossly WFL LE - Bilateral - Grossly WFL AROM MMT/Strength UE - Bilateral - Grossly WFL LE - Right - Hip flexion 4-/5, Hip Abd/Add 4/5; Knee extension 4+/5; Ankle DF 4+/5, PF 4+/5 Left - Hip flexion 4-/5, Hip Abd/Add 4/5; Knee extension 4+/5; Ankle DF 4+/5, PF 4+/5 Function Bed mobility - Supervision Supine to sit - Supervision Sit to stand - Stand by assist Gait - The patient ambulated ~25 feet with no AD with CGA. She demonstrates fair gait path with some wandering. Good heel strike and toe off. Stand to sit - Stand by assist Sit to supine - Stand by assist Tone/Coordination - Tone WFL. Slight impaired coordination Endurance - Fair to Fair + Balance Static Sitting - Good Dynamic Sitting - Good - Static Standing - Fair + Dynamic Standing - Fair Tinnetti Balance score - 13/16 Gait score - 10/12 Total score 23/28 - Moderate fall risk (19-23) Rhomberg - Fair with increased sway. Maintains balance independently Tandem stance - The patient needed assistance to attain position and to maintain for any length of time SL balance - Unable without PT assistance. Assessment/Plan Assessment - Patient presents with an admitting diagnosis of Cirrhosis of liver with ascites. The patient demonstrates decreased endurance, balance, gait and functional mobility. Rehab Potential - Good Recommend PT F/U - OPPT Recommend DME/AD - None PT Problem List - Decreased endurance, Decreased balance, Impaired gait, Limited transfer independence, Limited ambulation independence, and Decreased functional ability PT Plan - Patient will be seen 1-2 times per week minimum for therapeutic exercise, therapeutic activity - transfer, gait training, and NMR. Goals Patient will transfer sit-stand with Modified independent. Patient will transfer stand-pivot to bedside chair with Modified independent. Patient will ambulate 200 feet with with no assistive device and Stand by assist. Patient will achieve Good static standing balance and Good - dynamic standing balance. Will collaborate with other physical therapists, therapists assistants and therapy technicians regarding patients plan of care and discharge planning. Codes Complexity Personal Factors / Comorbidities Standardized test indicating Body Structures & Functions, Activity limitations &/or participation restrictions Typical time spent [id number] with patient 89947 Low 0 1-2 elements 20 minutes 90849 Moderate 1-2 3+ 30 minutes 08428 High 3+ 4+ 45 minutes 36636 Re-evaluation Change in status Change in status 20 minutes Evaluation Time: 10 minutes Physical Therapy Evaluation Complexity & Code: Low / 14067 Standardized Testing: MMT and ROM testing, gait, functional mobility Comorbidities / Personal Factors: Age, Complicated medical hx, Multiple diagnoses, Concomittant musculoskeletal condition, and Excaberation of impairments Body Function(s): Functions of the Cardiovascular, Hematological, Immunological and Respiratory System, Functions of the Digestive, Metabolic and Endocrine System, and Neuromusculoskeletal and Movement-Related Functions Body Structure(s): Structure of the Cardiovascular, Immunological and Respiratory System, Structures Related to the Digestive, Metabolic and Encocrine Systems, and Structure Related to Movement Activity Limitations &/or Participation Restrictions: General Tasks and Demands, Mobility, SelfCare, Domestic Life, and Community, Social and Civic Life [facility]03-19-2025 Consult note* Tomer Kilpatrick, PT - 12/12/2024 2:23 PM EDT PT Functional Evaluation Patient: Carolina Hightower Admitted: 12/10/2024 1:01 AM Height: 5' 2 (157.5 cm) Weight: 82.9 kg (182 lb 12.2 oz) BMI (Calculated): 33.4 Age: 49 y.o. LOS: 0 days Room # - [facility]/[id number] General Information Current Hospital Problem List - Principal Problem: Cirrhosis of liver with ascites Active Problems: Abdominal pain PMH - Past Medical History: Diagnosis Date Ascites Bipolar disorder Chronic hepatitis C virus infection Cirrhosis Kidney stone PSH - Past Surgical History: Procedure Laterality Date HX EGJ N/A 09/07/2024 EGD /C BIOPSY performed by Katharina Welsh MD at [facility] HX EGJ 09/07/2024 EGD /C BAND LIGATION VARICES performed by Katharina Welsh MD at [facility] HX LIVER BIOPSY HX POST STERILIZATION PARACENTESIS N/A 07/02/2024 Paracentesis performed by Max Rico MD at [facility] PARACENTESIS N/A 07/09/2024 Paracentesis performed by Ginger Milton MD at [facility] PARACENTESIS N/A 07/19/2024 Paracentesis performed by Minda Gómez MD at [facility] PARACENTESIS N/A 07/26/2024 Paracentesis performed by Max Rico MD at [facility] PARACENTESIS N/A 08/02/2024 Paracentesis performed by Ginger Milton MD at [facility] PARACENTESIS N/A 08/09/2024 Paracentesis performed by Minda Gómez MD at [facility] PARACENTESIS N/A 08/16/2024 Paracentesis performed by Ginger Milton MD at [facility] PARACENTESIS N/A 08/22/2024 Paracentesis performed by Max Rico MD at [facility] PARACENTESIS N/A 08/30/2024 Paracentesis performed by Minda Gómez MD at [facility] PARACENTESIS N/A 09/04/2024 Paracentesis performed by Ginger Milton MD at [facility] PARACENTESIS N/A 09/13/2024 Paracentesis performed by Max Rico MD at [facility] PARACENTESIS N/A 09/20/2024 Paracentesis performed by Midna Gómez MD at [facility] PARACENTESIS N/A 09/27/2024 Paracentesis performed by Ginger Milton MD at [facility] PARACENTESIS N/A 10/03/2024 Paracentesis performed by Max Rico MD at [facility] PARACENTESIS N/A 10/18/2024 Paracentesis performed by Ginger Milton MD at [facility] PARACENTESIS N/A 11/28/2024 Paracentesis performed by Minda Gómez MD at [facility] PARACENTESIS N/A 12/06/2024 Paracentesis performed by Max Rico MD at [facility] PARACENTESIS N/A 12/10/2024 Paracentesis performed by Ginger iMlton MD at [facility] ULTRASOUND GUIDANCE N/A 07/02/2024 Ultrasound Guidance performed by Max Rico MD at [facility] ULTRASOUND GUIDANCE N/A 07/09/2024 Ultrasound Guidance performed by Ginger Milton MD at [facility] ULTRASOUND GUIDANCE N/A 07/19/2024 Ultrasound Guidance performed by Minda Gómez MD at [facility] ULTRASOUND GUIDANCE N/A 07/26/2024 Ultrasound Guidance performed by Max Rico MD at [facility] ULTRASOUND GUIDANCE N/A 08/02/2024 Ultrasound Guidance performed by Ginger Milton MD at [facility] ULTRASOUND GUIDANCE N/A 08/09/2024 Ultrasound Guidance performed by Minda Gómez MD at [facility] ULTRASOUND GUIDANCE N/A 08/16/2024 Ultrasound Guidance performed by Ginger Milton MD at [facility] ULTRASOUND GUIDANCE N/A 08/22/2024 Ultrasound Guidance performed by Max Rico MD at [facility] ULTRASOUND GUIDANCE N/A 08/30/2024 Ultrasound Guidance performed by Minda Gómez MD at [facility] ULTRASOUND GUIDANCE N/A 09/04/2024 Ultrasound Guidance performed by Ginger Milton MD at [facility] ULTRASOUND GUIDANCE N/A 09/13/2024 Ultrasound Guidance performed by Max Rico MD at [facility] ULTRASOUND GUIDANCE N/A 09/20/2024 Ultrasound Guidance performed by Minda Gómez MD at [facility] ULTRASOUND GUIDANCE N/A 09/27/2024 Ultrasound Guidance performed by Ginger Milton MD at [facility] ULTRASOUND GUIDANCE N/A 10/03/2024 Ultrasound Guidance performed by Max Rico MD at [facility] ULTRASOUND GUIDANCE N/A 10/18/2024 Ultrasound Guidance performed by Ginger Milton MD at [facility] ULTRASOUND GUIDANCE N/A 10/30/2024 Ultrasound Guidance performed by Minda Gómez MD at [facility] ULTRASOUND GUIDANCE N/A 11/28/2024 Ultrasound Guidance performed by Minda Gómez MD at [facility] ULTRASOUND GUIDANCE N/A 12/06/2024 Ultrasound Guidance performed by Max Rico MD at [facility] ULTRASOUND GUIDANCE N/A 12/10/2024 Ultrasound Guidance performed by Ginger Milton MD at [facility] Attending Physicians - Isabella hC MD PT Order - Orders Placed This Encounter Procedures PT Eval and Treat -Debility - Standing Status: Standing Number of Occurrences: 1 Order Specific Question: Reason for PT Eval Answer: Debility Surgical Intervention - Paracentesis on 12/10/24. [place] [address] Radiology PATIENT NAME: Carolina Hightower MR#: [id number] PROCEDURE DATE: 12/10/2024 ROOM#: [id number] ORDERING PHYS: Miranda Marques PROCEDURE: Right upper quadrant ultrasound: CLINICAL INFORMATION: cirrhosis, elevated AFP. COMPARISON: CT 09/04/2024. TECHNIQUE: Real-time, astorga-scale ultrasound imaging of the gallbladder/right upper quadrant was performed. FINDINGS: The gallbladder is distended. There is gallbladder wall thickening at 6 mm. There is pericholecystic fluid. Negative sonographic Wellington's sign is reported at the time of examination. The common duct is measured at 7.2 mm. The liver is heterogeneous and nodular consistent with cirrhosis. There is ascites. There is enlargement of the main portal vein to 1.9 cm. No discrete liver lesions are identified. The right kidney shows no evidence hydronephrosis. The right renal echotexture is within normal limits. The visualized portion of the pancreas is unremarkable. IMPRESSION: Gallbladder distention with no definite stones identified. There is gallbladder wall thickening and pericholecystic fluid. This could be related to surrounding ascites/protein state. Clinical correlation is suggested. Heterogeneous and nodular liver consistent with cirrhosis. Ascites. Portal vein enlargement raising the question of portal hypertension.. THIS IS AN ELECTRONICALLY VERIFIED REPORT 12/10/2024 2:10 PM: MD Saud Zimmer MD arlen TD: 12/10/2024 JOB #: [id number] Radiology Page 1 of 1 COPY Non Destructive Testing Scientist: Read by: [place] [address] Radiology PATIENT NAME: Carolina Hightower MR#: [id number] PROCEDURE DATE: 12/11/2024 ROOM#: [id number] ORDERING PHYS: Isabella Ch Clinical history: Low back pain. Compared with 09/02/2024. Lumbar spine 3 Views. Findings: Vertebral bodies are normal in height and shows no evidence of acute compression fracture.. No evidence of spondylolisthesis. Visualized pedicles, spinous process and paraspinal soft tissue appears unremarkable. A decreased L5/S1 disc space height noted. The rest of the disc spaces are normal in height. IMPRESSION: Stable with no acute osseous finding. This note is generated using voice recognition computer software. Inadverent errors may have occurred while dictating note. Common sense approach is appreciated. THIS IS AN ELECTRONICALLY VERIFIED REPORT 12/11/2024 1:58 PM: MD Bill Parmar MD dd TD: 12/11/2024 JOB #: [id number] Radiology Page 1 of 1 COPY Non Destructive Testing Scientist: Read by: [place] [address] Radiology PATIENT NAME: Carolina Hightower MR#: [id number] PROCEDURE DATE: 12/12/2024 ROOM#: [id number] ORDERING PHYS: Lyssa Farrell PROCEDURE: MRI ABDOMEN W WO CONTRAST MRCP CLINICAL INFORMATION: Jaundice, fatty liver, elevated AFP COMPARISON: None TECHNIQUE: Multiecho and multisequence magnetic resonance imaging of the abdomen was performed with and without contrast. FINDINGS: Motion artifact degrades the study. The liver is heterogeneous and nodular consistent with cirrhosis. There are no focal enhancing masses identified. There is splenomegaly. There is a small amount of ascites. Dedicated MRCP images show no evidence of intrahepatic, or extrahepatic biliary ductal dilatation. There is no evidence of choledocholithiasis. The main pancreatic duct is normal caliber. The pancreas is unremarkable. The kidneys show no evidence hydronephrosis, or proximal hydroureter. Postcontrast images show no evidence of abnormal enhancement. Included osseous structures are overall intact. Included subcutaneous soft tissues show no discrete abnormalities. IMPRESSION: Cirrhosis with ascites and splenomegaly THIS IS AN ELECTRONICALLY VERIFIED REPORT 12/12/2024 11:58 AM: MD Saud Zimmer MD jp TD: 12/12/2024 JOB #: [id number] Radiology Page 1 of 1 COPY Non Destructive Testing Scientist: Read by: Saud Pierre MD Diagnostic/Lab Tests - HBG: Lab Results Component Value Date/Time HGB 12.6 12/12/2024 0358 Glucose: Lab Results Component Value Date/Time GLUCOSE 88 12/12/2024 0358 Coagulation: Lab Results Component Value Date/Time APTT 41.3 12/10/2024 0402 PROTIME 20.1 12/10/2024 0402 INR 1.7 12/10/2024 0402 Urinalysis: No results found for this visit on 12/10/24 (from the past 72 hour(s)). Precautions - Fall risk/Unsteadiness, Generalized weakness Weight Bearing Status - WBAT Subjective Subjective Comments - Patient agreeable to PT evaluation. RN cleared. The patient was found L sidelying in bed with head of bed slightly elevated. Pain - The patient states that she has moderate pain in her lumbar spine that has been present for about one year. Prior Level of Function - The patient states that she lives at the [facility]. She states that she was independent with all ADLs and ambulation with no AD. The patient states that she has not had any falls in the past year. Available Medical, Assistive & Adaptive Equipment - None Social history/discharge plans - Anticipate discharge home Objective Inspection - No signs of distress observed. VSS and WNL. LUE PIV (capped). Respiratory status - Room Air. Mental Status - alert and oriented x 3. Follows all directions appropriately, pleasant and cooperative. Skin - Warm and dry. No wounds observed. Sensation - Intact ROM UE - Bilateral - Grossly WFL LE - Bilateral - Grossly WFL AROM MMT/Strength UE - Bilateral - Grossly WFL LE - Right - Hip flexion 4-/5, Hip Abd/Add 4/5; Knee extension 4+/5; Ankle DF 4+/5, PF 4+/5 Left - Hip flexion 4-/5, Hip Abd/Add 4/5; Knee extension 4+/5; Ankle DF 4+/5, PF 4+/5 Function Bed mobility - Supervision Supine to sit - Supervision Sit to stand - Stand by assist Gait - The patient ambulated ~25 feet with no AD with CGA. She demonstrates fair gait path with some wandering. Good heel strike and toe off. Stand to sit - Stand by assist Sit to supine - Stand by assist Tone/Coordination - Tone WFL. Slight impaired coordination Endurance - Fair to Fair + Balance Static Sitting - Good Dynamic Sitting - Good - Static Standing - Fair + Dynamic Standing - Fair Tinnetti Balance score - 13/16 Gait score - 10/12 Total score 23/28 - Moderate fall risk (19-23) Rhomberg - Fair with increased sway. Maintains balance independently Tandem stance - The patient needed assistance to attain position and to maintain for any length of time SL balance - Unable without PT assistance. Assessment/Plan Assessment - Patient presents with an admitting diagnosis of Cirrhosis of liver with ascites. The patient demonstrates decreased endurance, balance, gait and functional mobility. Rehab Potential - Good Recommend PT F/U - OPPT Recommend DME/AD - None PT Problem List - Decreased endurance, Decreased balance, Impaired gait, Limited transfer independence, Limited ambulation independence, and Decreased functional ability PT Plan - Patient will be seen 1-2 times per week minimum for therapeutic exercise, therapeutic activity - transfer, gait training, and NMR. Goals Patient will transfer sit-stand with Modified independent. Patient will transfer stand-pivot to bedside chair with Modified independent. Patient will ambulate 200 feet with with no assistive device and Stand by assist. Patient will achieve Good static standing balance and Good - dynamic standing balance. Will collaborate with other physical therapists, therapists assistants and therapy technicians regarding patients plan of care and discharge planning. Codes Complexity Personal Factors / Comorbidities Standardized test indicating Body Structures & Functions, Activity limitations &/or participation restrictions Typical time spent [id number] with patient 69453 Low 0 1-2 elements 20 minutes 17819 Moderate 1-2 3+ 30 minutes 19997 High 3+ 4+ 45 minutes 25723 Re-evaluation Change in status Change in status 20 minutes Evaluation Time: 10 minutes Physical Therapy Evaluation Complexity & Code: Low / 01250 Standardized Testing: MMT and ROM testing, gait, functional mobility Comorbidities / Personal Factors: Age, Complicated medical hx, Multiple diagnoses, Concomittant musculoskeletal condition, and Excaberation of impairments Body Function(s): Functions of the Cardiovascular, Hematological, Immunological and Respiratory System, Functions of the Digestive, Metabolic and Endocrine System, and Neuromusculoskeletal and Movement-Related Functions Body Structure(s): Structure of the Cardiovascular, Immunological and Respiratory System, Structures Related to the Digestive, Metabolic and Encocrine Systems, and Structure Related to Movement Activity Limitations &/or Participation Restrictions: General Tasks and Demands, Mobility, SelfCare, Domestic Life, and Community, Social and Civic Life * Mary Haynes, [employer] SUPERVISOR - 12/11/2024 10:24 AM EDTAssociated Order(s): IP CONSULT TO SOCIAL WORK SOCIAL WORK ASSESSMENT DATE: 12/11/24 PATIENT NAME: Carolina Hightower MEDICAL UNIT: [id number] PURPOSE OF SOCIAL WORK INTERVENTION/REFERRAL: SW consulted for, dcp ASSESSMENT: Interview conducted with/Information obtained from: A review of the pt medical record, spoke with tx team, as well as discussion with patient at bedside. Identifying Information & Presenting Problem: Per H&P, Patient is a 49 y.o. female with PMHx noted below, presenting via transfer from [facility] with c/o LLQ abdominal pain and lower back pain. She states the pain is bubbling and couldnot elaborate further, and it's been there for about a week, around the same time when she had her paracentesis on 12/06/24 at [facility]. Patient denies LANCE, fever, chill, nausea/vomiting, chest pain, shortness of breath, dizziness, palpitations, focal motor/sensory deficit, dysuria, or diarrhea. 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 Living Situation: Pt lives at the [facility]. Daily Functional Status DRAW PRESS OPERATOR: Patient is independent with ADL's. Support System: Family Medical Equipment: N/A Home Care Services (HH, Passport, Waiver, Private Caregivers, MOW etc) and Preferred Provider: Pt defers HH at this time. Community Services (mental health services, speciality clinics such as coumadin clinic, mental health services): [facility] [place] IDENTIFIED SOCIAL DETERMINATES OF HEALTH (if yes explain): Housing: N/A Food: N/A Medications: N/A Transportation: N/A MEDICAL HISTORY: Pertinent Past Hx: Past Medical History: Diagnosis Date Ascites Bipolar disorder Chronic hepatitis C virus infection Cirrhosis Kidney stone PCP: Ange Espinoza DO Insurance: Payor: PUJA / Plan: PUJA [place] / Product Type: *No Product type* / Recent Hospitalizations/ED Visits/Outpt Appts: Admission Last 6 Months Type Department Provider Description 07/02/2024 ED (DISCHARGE AF) Emergency Department Pete Ponce MD Alcoholic cirrhosis of liver with ascites (Primary Dx); Chronic hepatitis C with cirrhosis 07/05/2024 ED (DISCHARGE) Emergency Department Pete Ponce MD Cirrhosis of liver (Primary Dx) 07/08/2024 - 07/10/2024 ED to Hosp-Admission (Discharged) (ADMIT) General Medicine Tod Son DO; Lambert Veliz DO Ascites (Primary Dx); Amphetamine-type substance use disorder, severe 07/26/2024 ED (DISCHARGE AF) Emergency Department Pete Ponce MD Alcoholic cirrhosis of liver with ascites (Primary Dx) 09/01/2024 - 09/09/2024 ED to Hosp-Admission (Discharged) (ADMIT) Internal Medicine Unit Vanesa Hartman MD; Leah Hector DO; Cora Fierro MD; Araceli Shields DO Hepatic encephalopathy (Primary Dx); Ascites; Acute metabolic encephalopathy; Abnormal finding on GI tract imaging; Chronic hepatitis C with cirrhosis ; HE (hepatic encephalopathy) ; Chronic bilateral low back pain without sciatica; Alcoholic cirrhosis of liver with ascites ; Thrombocytopenia 09/28/2024 ED (DISCHARGE) Emergency Department Pete Ponce MD Chronic liver disease and cirrhosis (Primary Dx); Thrombocytopenia 10/04/2024 ED (DISCHARGE) Emergency Department Pete Ponce MD Cirrhosis of liver (Primary Dx) 11/19/2024 - 11/20/2024 ED (ELOPEMENT) Emergency Department Lambert Veliz DO Viral syndrome (Primary Dx) 11/29/2024 Pre-admit Endoscopy Katharina Welsh MD 12/10/2024 ED to Hosp-Admission (Current) (ADMIT) Clinical Decision Unit Isabella Torrez MD; Leah Hector DO Abdominal pain (Primary Dx); Ascites; Lower back pain ADVANCE DIRECTIVES/NEXT OF KIN IDENTIFICATION: Vannesa Hightower (Daughter) [phone] (H) No AD on file in [place]. DISCUSSION & INTERVENTION: Treatment Team/Social Work Assessment of Needs and Disposition: Discussed dcp and possible needs. Patient & Family Perspective of Needs and Disposition: SW spoke with patient at bedside. Pt plans to return to [facility] upon d/c. Pt defers HH at this time. No DME needed. Left voicemail with [facility] regarding transport. SW to follow. Discussion: SW educated patient on the role of the SW and that SW will continue to follow. SW informed patient that treatment options may vary based on the healthcare team recommendations and patient's progress.Patient voiced understanding. SW DISCHARGE/TREATMENT PLAN: 12/11/24 Pt to return to [facility], [place] [phone] 1. Anticipate DC to home once medically stable. 2. Pt defers HH 3. SW to follow. Mary NAM Social Work * Katharina Welsh MD - 12/10/2024 11:00 AM EDTAssociated Order(s): IP CONSULT TO GASTROENTEROLOGY GASTROENTEROLOGY CONSULT NOTE Miranda Marques 12/10/2024 Patient Name: Carolina Hightower : 1975 Medical Record: [id number] REQUESTING PHYSICIAN Isabella Ch MD PRIMARY CARE PHYSICIAN Ange Espinoza DO REASON FOR CONSULTATION Carolina Hightower is a 49 y.o. female who was referred for consultation for cirrhosis, abdominal pain. HPI: This is a 49 y.o. female with a history of Hepatitis C cirrhosis, bipolar disorder who presented tot ED yesterday with complaint of back pain, abdominal pain. Patient was admitted for further evaluation and management. Patient reports primary presenting symptom was back pain. She is unable to discern onset. She reports onset of left sided abdominal pain 4 days ago. Unable to appreciate any alleviating or aggravating factors prior to admission. Reports some improvement since paracentesis. Patient denies overt GI bleeding. Denies N, V. Denies fever. She reports she is compliant with diuretics, Lactulose, and Xifaxin. States she has at least 3 loose stools daily. Denies confusion. Patient underwent paracentesis today with removal of 450 mL fluid. She has Hgb 12.2 gm. Total bili 2.2, ALP 121, AST 109, ALT 67 EGD 08/2024 with grade II EV, banded. Gastric ulcers and PHG. Patient was last seen in clinic 09/20/2024. Scheduled for EGD earlier this month but did not present. She receives weekly paracentesis prn. She was referred to [facility] this past August, referral received and acknowledged. Does not appear patient was scheduled. MEDICAL HISTORY Past Medical History: Diagnosis Date Ascites Bipolar disorder Chronic hepatitis C virus infection Cirrhosis Kidney stone SURGICAL HISTORY Past Surgical History: Procedure Laterality Date HX EGJ N/A 09/07/2024 EGD /C BIOPSY performed by Katharina Welsh MD at [facility] HX EGJ 09/07/2024 EGD /C BAND LIGATION VARICES performed by Katharina Welsh MD at [facility] HX LIVER BIOPSY HX POST STERILIZATION PARACENTESIS N/A 07/02/2024 Paracentesis performed by Max Rico MD at [facility] PARACENTESIS N/A 07/09/2024 Paracentesis performed by Ginger Milton MD at [facility] PARACENTESIS N/A 07/19/2024 Paracentesis performed by Minda Gómez MD at [facility] PARACENTESIS N/A 07/26/2024 Paracentesis performed by Max Rico MD at [facility] PARACENTESIS N/A 08/02/2024 Paracentesis performed by Ginger Milton MD at [facility] PARACENTESIS N/A 08/09/2024 Paracentesis performed by Minda Gómez MD at [facility] PARACENTESIS N/A 08/16/2024 Paracentesis performed by Ginger Milton MD at [facility] PARACENTESIS N/A 08/22/2024 Paracentesis performed by Max Rico MD at [facility] PARACENTESIS N/A 08/30/2024 Paracentesis performed by Minda Gómez MD at [facility] PARACENTESIS N/A 09/04/2024 Paracentesis performed by Ginger Milton MD at [facility] PARACENTESIS N/A 09/13/2024 Paracentesis performed by Max Rico MD at [facility] PARACENTESIS N/A 09/20/2024 Paracentesis performed by Minda Gómez MD at [facility] PARACENTESIS N/A 09/27/2024 Paracentesis performed by Ginger Milton MD at [facility] PARACENTESIS N/A 10/03/2024 Paracentesis performed by Max Rico MD at [facility] PARACENTESIS N/A 10/18/2024 Paracentesis performed by Ginger Milton MD at [facility] PARACENTESIS N/A 11/28/2024 Paracentesis performed by Minda Gómez MD at [facility] PARACENTESIS N/A 12/06/2024 Paracentesis performed by Max Rico MD at [facility] PARACENTESIS N/A 12/10/2024 Paracentesis performed by Ginger Milton MD at [facility] ULTRASOUND GUIDANCE N/A 07/02/2024 Ultrasound Guidance performed by Max Rico MD at [facility] ULTRASOUND GUIDANCE N/A 07/09/2024 Ultrasound Guidance performed by Ginger Milton MD at [facility] ULTRASOUND GUIDANCE N/A 07/19/2024 Ultrasound Guidance performed by Minda Gómez MD at [facility] ULTRASOUND GUIDANCE N/A 07/26/2024 Ultrasound Guidance performed by Max Rico MD at [facility] ULTRASOUND GUIDANCE N/A 08/02/2024 Ultrasound Guidance performed by Ginger Milton MD at [facility] ULTRASOUND GUIDANCE N/A 08/09/2024 Ultrasound Guidance performed by Minda Gómez MD at [facility] ULTRASOUND GUIDANCE N/A 08/16/2024 Ultrasound Guidance performed by Ginger Milton MD at [facility] ULTRASOUND GUIDANCE N/A 08/22/2024 Ultrasound Guidance performed by Max Rico MD at [facility] ULTRASOUND GUIDANCE N/A 08/30/2024 Ultrasound Guidance performed by Minda Gómez MD at [facility] ULTRASOUND GUIDANCE N/A 09/04/2024 Ultrasound Guidance performed by Ginger Milton MD at [facility] ULTRASOUND GUIDANCE N/A 09/13/2024 Ultrasound Guidance performed by Max Rico MD at [facility] ULTRASOUND GUIDANCE N/A 09/20/2024 Ultrasound Guidance performed by Minda Gómez MD at [facility] ULTRASOUND GUIDANCE N/A 09/27/2024 Ultrasound Guidance performed by Ginger Milton MD at [facility] ULTRASOUND GUIDANCE N/A 10/03/2024 Ultrasound Guidance performed by Max Rico MD at [facility] ULTRASOUND GUIDANCE N/A 10/18/2024 Ultrasound Guidance performed by Ginger Milton MD at [facility] ULTRASOUND GUIDANCE N/A 10/30/2024 Ultrasound Guidance performed by Minda Gómez MD at [facility] ULTRASOUND GUIDANCE N/A 11/28/2024 Ultrasound Guidance performed by Minda Gómez MD at [facility] ULTRASOUND GUIDANCE N/A 12/06/2024 Ultrasound Guidance performed by Max Rico MD at [facility] ULTRASOUND GUIDANCE N/A 12/10/2024 Ultrasound Guidance performed by Ginger Milton MD at [facility] MEDICATIONS Medications Prior to Admission Medication Sig Dispense Refill Last Dose lactulose (CHRONULAC) 10 gram/15 mL solution Take 45 mL by mouth Three times a day. 1000 mL 2 rifAXIMin (XIFAXAN) 550 mg tablet Take 1 Tablet by mouth Twice a day for 90 days. 60 Tablet 2 furosemide (LASIX) 40 mg tablet Take 1 Tablet by mouth Once Daily. 30 Tablet 3 Benzonatate (TESSALON PERLES) 200 mg capsule Take 1 Capsule by mouth Three times a day. 30 Capsule 0 [] predniSONE (DELTASONE) 20 mg tablet Take 2 Tabs by mouth Once Daily for 3 days, THEN 1 Tablet Once Daily for 2 days, THEN 0.5 Tabs Once Daily for 2 days. 9 Tablet 0 [] nitrofurantoin, macrocrystal-mono, (MACROBID) 100 mg capsule Take 1 Capsule by mouth Twice a day for 5 days. Indications: inflammation of the bladder 10 Capsule 0 [] fluconazole (DIFLUCAN) 150 mg tablet Take 1 Tablet by mouth One time only for 1 dose. 1 Tablet 0 [] phenazopyridine (PYRIDIUM) 200 mg tablet Take 1 Tablet by mouth Three times a day for 2 days. 6 Tablet 0 ondansetron (ZOFRAN-ODT) 4 mg disintegrating tablet Take 1 Tablet by mouth Every 6 hours as needed.16 Tablet 0 [] doxycycline hyclate (VIBRA-TABS) 100 mg tablet Take 1 Tablet by mouth Twice a day for 7 days. 14 Tablet 0 Promethazine-DM (PROMETHAZINE-DM) 6.25-15 mg/5 mL syrup Take 5 mL by mouth EVERY 6 TO 8 HOURS PRN for Cough. 118 mL 0 pantoprazole (PROTONIX) [address] tablet Take 1 Tablet by mouth Once Daily for 90 days. 30 Tablet 2 traMADoL (ULTRAM) 50 mg tablet Take 1 Tablet by mouth Every 12 hours as needed. 6 Tablet 0 methocarbamoL (ROBAXIN) 500 mg tablet Take 1 Tablet by mouth Twice a day as needed. 20 Tablet 0 hydrOXYzine hcl (ATARAX) 25 mg tablet Take 25 mg by mouth Twice a day as needed for Itching. traZODone (DESYREL) 50 mg tablet Take 50 mg by mouth At bedtime. spironolactone 50 mg tablet Take 2 Tabs by mouth Once Daily for 360 days. 180 Tablet 3 lurasidone (LATUDA) 20 mg tablet Take 20 mg by mouth Once Daily. busPIRone (BUSPAR) 10 mg tablet Take 10 mg by mouth Three times a day. desvenlafaxine succinate (PRISTIQ) 50 mg tablet Take 50 mg by mouth Once Daily. Take 25mg daily gabapentin (NEURONTIN) 100 mg capsule Take 300 mg by mouth Twice a day. fluticasone propionate (FLONASE) 50 mcg/Actuation nasal spray Prather 50 mcg in each nostril Once Daily. One spray both nostrils daily ferrous sulfate 325 mg (65 mg iron) DR tablet Take 325 mg by mouth Once Daily. topiramate (TOPAMAX) 25 mg Take 25 mg by mouth Once Daily. naloxone (NARCAN) 4 mg/actuation nasal spray Prather 1 Prather in nose As directed for 1 dose. Call 911, Administer via Nasal every 3-5 min until patient becomes responsive. Repeat as many times as necessary for pt to become responsive. 2 Each 11 Current Facility-Administered Medications Medication Dose Route Frequency Provider Last Rate Last Admin cefTRIAXone (ROCEPHIN) 2 g in NS (sodium chloride 0.9%) 100 mL (MINI-BAG) 2 g Intravenous Q24H Tommie New MD Stopped at 12/10/24 0524 rifAXIMin (XIFAXAN) tab 550 mg 550 mg Oral BID Tommie New MD furosemide (LASIX) tab 40 mg 40 mg Oral DAILY Tommie New MD spironolactone (ALDACTONE) tab 100 mg 100 mg Oral DAILY Tommie New MD lactulose (CHRONULAC) 20 gram/30 mL soln 30 g 30 g Oral TID Tommie New MD pantoprazole (PROTONIX) DR tab 40 mg 40 mg Oral DAILY Tommie New MD busPIRone (BUSPAR) tab 10 mg 10 mg Oral TID Tommie New MD traZODone (DESYREL) tab 50 mg 50 mg Oral QHS PRN Tommie New MD FLUoxetine (PROzac) cap 20 mg 20 mg Oral DAILY Tommie New MD ipratropium-albuteroL (DUO-NEB) 0.5 mg-3 mg(2.5 mg base)/3 mL neb soln 3 mL 3 mL Inhalation Q6H PRTommie Jefferson MD Lactobacillus rhamnosus GG (CULTURELLE) 15 billion cell sprinke cap 1 Capsule 1 Capsule Oral BID Tommie New MD sodium chloride flush 0.9 % syringe 10 mL 10 mL Intravenous Q8H Tommie New MD 10 mL at 12/10/24 0613 sodium chloride flush 0.9 % syringe 10 mL 10 mL Intravenous PRN Tommie New MD potassium chloride SA (KLOR-CON M20) tab 20 mEq 20 mEq Oral DIR PRN Tommie New MD magnesium sulfate in water (2g/50mL premix) piggyback (PREMIX) 2 g 2 g Intravenous DIR PRN Tommie New MD calcium gluconate in NaCl (ISO-OS) 100mL piggyback (PREMIX) 2 g 2 g Intravenous DIR PRN Tommie New MD acetaminophen (TYLENOL) tab 650 mg 650 mg Oral Q6H PRN Tommie New MD acetaminophen (TYLENOL) tab 500 mg 500 mg Oral Q4H PRN Tommie New MD 500 mg at 12/10/24 0422 LIDOCAINE (PF) 20 MG/ML (2 %) INJECTION SOLUTION (Pyxis override) ALLERGIES Allergies Allergen Reactions Wellbutrin [Bupropion] Other (See Comments) seizures Codeine Hives SOCIAL HISTORY Social History Socioeconomic History Marital status: Other Tobacco Use Smoking status: Every Day Current packs/day: 1.00 Types: Cigarettes Smokeless tobacco: Never Substance and Sexual Activity Alcohol use: Not Currently Drug use: Not Currently Types: Methamphetamines Comment: new 2023 Sexual activity: Not Currently Social Determinants of Health Financial Resource Strain: Medium Risk (11/22/2023) [facility] Overall Financial Resource Strain (CARDIA) Difficulty of Paying Living Expenses: Somewhat hard Food Insecurity: No Food Insecurity (09/02/2024) Hunger Vital Sign Worried About Running Out of Food in the Last Year: Never true Ran Out of Food in the Last Year: Never true Recent Concern: Food Insecurity - Food Insecurity Present (07/09/2024) Hunger Vital Sign Ran Out of Food in the Last Year: Often true Transportation Needs: No Transportation Needs (09/02/2024) PRAPARE - Transportation Lack of Transportation (Medical): No Lack of Transportation (Non-Medical): No Intimate Partner Violence: Not At Risk (09/02/2024) Humiliation, Afraid, Rape, and Kick questionnaire Fear of Current or Ex-Partner: No Emotionally Abused: No Physically Abused: No Sexually Abused: No Housing Stability: Unknown (09/02/2024) Housing Stability Vital Sign Unable to Pay for Housing in the Last Year: No Homeless in the Last Year: No Recent Concern: Housing Stability - High Risk (07/09/2024) Housing Stability Vital Sign Unstable Housing in the Last Year: Yes FAMILY HISTORY Family History Problem Relation Name Age of Onset Stroke Mother High Cholesterol Mother Hypertension Mother Diabetes Mother Lung Disease Father Thyroid Disease Maternal Grandmother REVIEW OF SYSTEMS Review of Systems Constitutional: Positive for malaise/fatigue. Negative for chills, fever and weight loss. Gastrointestinal: Positive for abdominal pain. Negative for blood in stool, constipation, diarrhea,melena, nausea and vomiting. Musculoskeletal: Positive for back pain. All other systems reviewed and are negative. PHYSICAL EXAM Vital Signs: Recorded Vitals 12/10/24 0900 12/10/24 0905 12/10/24 0910 12/10/24 1109 BP: (!) 87/60 103/58 (!) 96/52 106/60 Pulse: 75 76 73 58 Resp: 15 12 18 18 Temp: 98.5 F (36.9 C) TempSrc: Oral SpO2: 98% 100% 100% 99% Body mass index is 34.07 kg/m . Physical Exam Vitals and nursing note reviewed. Constitutional: General: She is not in acute distress. Eyes: General: Scleral icterus (subtle) present. Cardiovascular: Rate and Rhythm: Normal rate and regular rhythm. Heart sounds: Normal heart sounds. No murmur heard. Abdominal: General: Abdomen is protuberant. Bowel sounds are normal. There is no distension. Palpations: Abdomen is soft. Tenderness: There is no abdominal tenderness. Skin: General: Skin is warm and dry. Capillary Refill: Capillary refill takes less than 2 seconds. Neurological: Mental Status: She is alert and oriented to person, place, and time. Comments: No asterixis INTAKE & OUTPUT Intake/Output Summary (Last 24 hours) at 12/10/2024 1140 Last data filed at 12/10/2024 0524 Gross per 24 hour Intake 100 ml Output -- Net 100 ml LABS Lab Results Component Value Date/Time WBC 4.7 12/10/2024 0402 HGB 12.2 12/10/2024 0402 HCT 35.1 12/10/2024 0402 MCV 93.0 12/10/2024 0402 MCHC 34.7 12/10/2024 0402 PLATELETCNT 55 12/10/2024 0402 CMP: Lab Results Component Value Date/Time SODIUM 136 12/10/2024 0402 POTASSIUM 3.8 12/10/2024 0402 CHLORIDE 112 12/10/2024 0402 CO2 21 12/10/2024 0402 GLUCOSE 82 12/10/2024 0402 BUN 7 12/10/2024 0402 CREATININE 0.8 12/10/2024 0402 CALCIUM 8.6 12/10/2024 0402 PROTEINTOTAL 5.9 12/10/2024 0402 TBILIRUBIN 2.6 12/10/2024 0402 ALP 121 12/10/2024 0402 AST 109 12/10/2024 0402 ALTSGPT 67 12/10/2024 0402 ALBUMIN 2.7 12/10/2024 0402 AGRATIO 0.8 12/10/2024 0402 Lab Results Component Value Date INR 1.7 (H) 12/10/2024 INR 1.5 (H) 11/08/2024 INR 1.6 (H) 09/28/2024 PROTIME 20.1 (H) 12/10/2024 PROTIME 17.9 (H) 11/08/2024 PROTIME 18.5 (H) 09/28/2024 Lab Results Component Value Date LIPASE 37 12/10/2024 ASSESSMENT AND PLAN Patient discussed with Dr. Welsh. Per Dr. Welsh orders as follows. 1. Decompensated HCV cirrhosis with ascites. + EV. No overt HE, no asterixis. Elevated AFP last admission, no lesions noted on imaging. -MELD Na 18 -AFP -RUQ US -paracentesis today with removal of 450 mL -Aldactone as ordered -Lasix as ordered -Lactulose as ordered -Xifaxan as ordered -2 Gm Na diet, 1500 cc FR -referral to [facility] placed and received 08/2024, will ask office personnel to reach out and facilitate. -review of Care Everywhere indicates [facility] no longer covered by insurance -EGD as outpatient 2. Abdominal pain in setting of above, rule out SBP -as above -follow ascitic fluid -antibiotics as ordered 3. Chronic Hepatitis C -last HCV quant 10/2023 38,400 -patient denies any prior treatment, discussed need for treatment and follow up in clinic -follow up in clinic after discharge 4. Back pain -defer evaluation and management to primary -pain management per medicine See orders. Further management pending hospital course. Patient and/or family was updated on diagnoses, procedures, tests, results, and plan of care. Thank you for consulting. Electronically signed by: Miranda Marques APRN 12/10/2024 11:40 AM RADIO REPAIR TEACHER NOTE Patient seen on : 12-10-2024 HPI: as noted above Physical Exam: General: alert, no distress Mental status:Alert, oriented, thought content appropriate HEENT: mild icterus CVS: normal S1 and S2 Respiratory: chest clear to auscultation bilaterally Abdomen:sl distended, soft, mild gen tenderness, No organomegaly or masses, BS normal Extremities: extremities normal, atraumatic, no cyanosis or edema Motor: No asterixis Impression/Recommendations: Please see above for my assessment and Plan. I have personally performed a face to face diagnostic evaluation on this patient and discussed his/her management with the NPP. I reviewed the NPP note and agree with the documented findings and planof care except for additional findings as listed above. Signed: Katharina Welsh M.D., MD 12/10/2024 5:02 PM * Ginger Milton MD - 12/10/2024 8:39 AM EDTAssociated Order(s): IP CONSULT TO INTERVENTIONAL RADIOLOGY Images from the original note were not included. Interventional Radiology Consult Name: Carolina Hightower : 1975 12/10/2024 HPI: Liver disease and recurrent large volume ascites Past Medical History: Diagnosis Date Ascites Bipolar disorder Chronic hepatitis C virus infection Cirrhosis Kidney stone Current Facility-Administered Medications on File Prior to Encounter Medication Dose Route Frequency Provider Last Rate Last Admin [COMPLETED] lidocaine (preservative free) 20 mg/mL (2 %) injection ONE TIME PRN Max Rico MD 10 mL at 12/06/24 1001 [COMPLETED] lidocaine (preservative free) 20 mg/mL (2 %) injection ONE TIME PRN Minda Gómez MD 10 mL at 11/28/24 0958 Current Outpatient Medications on File Prior to Encounter Medication Sig Dispense Refill lactulose (CHRONULAC) 10 gram/15 mL solution Take 45 mL by mouth Three times a day. 1000 mL 2 rifAXIMin (XIFAXAN) 550 mg tablet Take 1 Tablet by mouth Twice a day for 90 days. 60 Tablet 2 furosemide (LASIX) 40 mg tablet Take 1 Tablet by mouth Once Daily. 30 Tablet 3 Benzonatate (TESSALON PERLES) 200 mg capsule Take 1 Capsule by mouth Three times a day. 30 Capsule 0 [] predniSONE (DELTASONE) 20 mg tablet Take 2 Tabs by mouth Once Daily for 3 days, THEN 1 Tablet Once Daily for 2 days, THEN 0.5 Tabs Once Daily for 2 days. 9 Tablet 0 [] nitrofurantoin, macrocrystal-mono, (MACROBID) 100 mg capsule Take 1 Capsule by mouth Twice a day for 5 days. Indications: inflammation of the bladder 10 Capsule 0 [] fluconazole (DIFLUCAN) 150 mg tablet Take 1 Tablet by mouth One time only for 1 dose. 1 Tablet 0 [] phenazopyridine (PYRIDIUM) 200 mg tablet Take 1 Tablet by mouth Three times a day for 2 days. 6 Tablet 0 ondansetron (ZOFRAN-ODT) 4 mg disintegrating tablet Take 1 Tablet by mouth Every 6 hours as needed.16 Tablet 0 [] doxycycline hyclate (VIBRA-TABS) 100 mg tablet Take 1 Tablet by mouth Twice a day for 7 days. 14 Tablet 0 Promethazine-DM (PROMETHAZINE-DM) 6.25-15 mg/5 mL syrup Take 5 mL by mouth EVERY 6 TO 8 HOURS PRN for Cough. 118 mL 0 pantoprazole (PROTONIX) [address] tablet Take 1 Tablet by mouth Once Daily for 90 days. 30 Tablet 2 traMADoL (ULTRAM) 50 mg tablet Take 1 Tablet by mouth Every 12 hours as needed. 6 Tablet 0 methocarbamoL (ROBAXIN) 500 mg tablet Take 1 Tablet by mouth Twice a day as needed. 20 Tablet 0 hydrOXYzine hcl (ATARAX) 25 mg tablet Take 25 mg by mouth Twice a day as needed for Itching. traZODone (DESYREL) 50 mg tablet Take 50 mg by mouth At bedtime. spironolactone 50 mg tablet Take 2 Tabs by mouth Once Daily for 360 days. 180 Tablet 3 lurasidone (LATUDA) 20 mg tablet Take 20 mg by mouth Once Daily. busPIRone (BUSPAR) 10 mg tablet Take 10 mg by mouth Three times a day. desvenlafaxine succinate (PRISTIQ) 50 mg tablet Take 50 mg by mouth Once Daily. Take 25mg daily gabapentin (NEURONTIN) 100 mg capsule Take 300 mg by mouth Twice a day. fluticasone propionate (FLONASE) 50 mcg/Actuation nasal spray Prather 50 mcg in each nostril Once Daily. One spray both nostrils daily ferrous sulfate 325 mg (65 mg iron) DR tablet Take 325 mg by mouth Once Daily. topiramate (TOPAMAX) 25 mg Take 25 mg by mouth Once Daily. naloxone (NARCAN) 4 mg/actuation nasal spray Prather 1 Prather in nose As directed for 1 dose. Call 911, Administer via Nasal every 3-5 min until patient becomes responsive. Repeat as many times as necessary for pt to become responsive. 2 Each 11 Patient's allergies: Allergies Allergen Reactions Wellbutrin [Bupropion] Other (See Comments) seizures Codeine Hives Physical Exam HENT: Head: Normocephalic. Cardiovascular: Rate and Rhythm: Normal rate. Pulmonary: Effort: Pulmonary effort is normal. Abdominal: General: There is distension. Musculoskeletal: General: Normal range of motion. Neurological: Mental Status: She is alert. Mental status is at baseline. A/P: Ascites. Will proceed with requested paracentesis. Discussed the potential benefits, risks, and alternatives to the proposed procedure. Ms. Hightower is in agreement with the plan of care. Signed: Ginger Milton M.D. 12/10/2024 8:39 AM [facility] Note* Care Plan Note - Valentine Nieves LPN - 12/12/2024 6:16 AM EDT Problem: Falls, Moderate Risk For Goal: Absence of falls Description: Interventions: - Non-skid footwear with ambulation - Exercise program (if applicable) for strengthening - Address the P's during each pt encounter (rounding); offer bathroom more frequently for patient on diuretics, bowel prep, etc. - Siderails up X 2 (Upper left and upper right) - Bed low position and wheels locked - Chair/wheelchair locked - Minimize line tethering - Walkway free of clutter - Nightlight on evening/night hours - Keep door to pt room open (unless contraindication, isolation, etc.) - Call light, phone, table, and/or other pt necessities in reach (pt MUST demonstrate ability to properly use call light) - Appropriate fall bracelet on at all times - Provide pt/family with fall education on admission and transfers - Reorient pt to environment as appropriate - Remind pt/family to call for assistance with each encounter Outcome: Ongoing Problem: Discharge Planning Goal: Knowledge of discharge instructions Description: Interventions: 1. Consult social work for post discharge needs 2. Education, activity restrictions 3. Education, post discharge follow up 4. Education, prescribed medication 5. Education, when to call provider 6. Education, discharge diet Outcome: Ongoing Problem: Activity Intolerance Goal: Improved activity tolerance Description: Interventions: 1. Education, prescribed activity level 2. Progressive ambulation program Outcome: Ongoing Problem: Fluid Volume, Imbalanced, Risk for Goal: Balanced intake and output Description: Interventions: 1. Body weight monitoring 2. Intake and output measurments Outcome: Ongoing Problem: Infection, Risk For, Surgical Site (General) Goal: Absence of infection signs and symptoms Description: Instructions: - Wound assessment - surgical site - Incision care - Monitor lab results - Education, hand washing - Education, incision care Outcome: Ongoing Problem: Infection, Risk for Goal: Patient will be free from infection Description: Interventions: 1. Monitor for signs and symptoms of infection: fever, increased WBC, burning with urination or chills 2. Monitor insertion site for redness, tenderness, or drainage 3. Hand hygiene per CDC guidelines 4. Discontinuation of invasive devices when not needed 5. Place patient in appropriate isolation Outcome: Ongoing Problem: Nutrition Deficit Goal: Adequate nutritional intake Description: Interventions: -Consult to auto parts handler -Intake and output measurement -Calorie count if indicated Outcome: Ongoing Goal: Body weight within specified parameters Description: Interventions: - Body weight measurement Outcome: Ongoing Problem: Pain, Acute Goal: Communication of presence of pain Description: Interventions: - Nonpharmacologic pain management - Medication administration - Education, pain scale Outcome: Ongoing Problem: Skin Integrity, Impaired, Risk for Goal: Absence of pressure injury Description: Interventions: - Skin assessment - Patient repositioning every 2 hours if decreased mobility Outcome: Ongoing Problem: Deep Venous Thrombosis, Risk of Goal: Absence of deep venous thrombosis Description: Interventions: - Deep venous thrombosis risk assessment - Ensure patient is receiving antithrombotic medication for VTE prophylaxis - Activity promotion - Graduated anti-embolic stocking management - Intermittent pneumatic compression management. Outcome: Ongoing Goal: Knowledge of deep venous thrombosis Description: Interventions: - Education, deep venous thrombosis signs and symptoms - Education, ambulation - Education, graduated anti-embolic stockings - Education, deep venous thrombosis prophalaxis Outcome: Ongoing Problem: Tobacco Use Goal: Inpatient tobacco-use cessation counseling participation Description: Interventions: - Tobacco use assessment - Tobacco use cessation counseling - Consult to lung health specialist - Education, tobacco use cessation methods Outcome: [facility]ngoing [facility]* End of Shift Note - Valentine Nieves LPN - 12/12/2024 6:16 AM EDT Nursing End of Shift Summary Pertinent changes to patient conditions and/or care this shift: N/A Vital Signs Weight: 82.9 kg (182 lb 12.2 oz) (12/11/24 0500) Temp: 98.8 F (37.1 C) Temp Source: Oral Heart Rate:54 BP: 103/63 Respirations: 20 Oxygen Saturation SpO2: 100 % O2 Delivery: Room air O2 Device: None (Room air) O2 Flow Rate (l/min): 0 l/min Incentive Spirometry Incentive Spirometry: No Diet Diet NPO; Intake/Output Totals Intake/Output 12/11/24 0700 - 12/12/24 [phone] [id number] Total Intake P.O. 600 0 600 I.V. -- 0 0 Blood -- 0 0 Other -- 0 0 Total Intake 600 0 600 Output Urine -- 0 0 Urine -- 0 0 Weight of Briefs in mL -- 0 0 Urine Occurrence -- 3 x 3 x Emesis/NG output -- 0 0 Emesis -- 0 0 Emesis Occurrence -- 0 x 0 x Other -- 0 0 Other -- 0 0 Stool -- 0 0 Stool Occurrence -- 0 x 0 x Stool -- 0 0 Blood -- 0 0 Blood output -- 0 0 Total Output -- 0 0 Activity Activity: Up ad cyn Level of Assistance: Independent Activity Tolerance: Tolerated Well Ambulation Attempts this Shift: Did not ambulate this shift Telemetry Telemetry Abnormalities No Labs No results found for: FUNCTIONAL, PLTAGGREG Lab Results Component Value Date RBC 3.62 (L) 12/11/2024 WBC 4.3 (L) 12/11/2024 HCT 34.3 12/11/2024 HGB 11.8 (L) 12/11/2024 PLATELETCNT 52 (L) 12/11/2024 MCH 32.5 12/11/2024 MCHC 34.3 12/11/2024 MCV 94.6 12/11/2024 MPV 9.4 12/11/2024 Lab Results Component Value Date ALBUMIN 2.9 (L) 12/12/2024 SODIUM 137 12/12/2024 POTASSIUM 3.9 12/12/2024 CHLORIDE 109 12/12/2024 CO2 22 12/12/2024 ANIONGAP 6 12/12/2024 GLUCOSE 88 12/12/2024 CREATININE 1.0 12/12/2024 BUN 9 12/12/2024 CALCIUM 8.4 (L) 12/12/2024 PROTEINTOTAL 6.1 12/12/2024 TBILIRUBIN 1.8 (H) 12/12/2024 ALP 124 (H) 12/12/2024 AST 130 (H) 12/12/2024 ALTSGPT 72 (H) 12/12/2024 OSMOLALITY 272 12/12/2024 AGRATIO 0.9 12/12/2024 BC 9 (L) 12/12/2024 ESTIMATEDGFR 58 12/12/2024 Taking all meds Yes Any PRN meds given? No Current IV Infusions Diuretics SDOH Screen Assessed? Not Assessed Discharge Planning Home Expected Discharge Date Education Provided Other (Comment) [facility]* Adv. Directive - Mary Haynes BSW - 12/11/2024 10:39 AM EDT Identified Next of Kin/Decision Maker: Vannesa Hightower (Daughter) [phone] (H) Comments: If there comes a time the patient is unable to make their own medical decisions, the above named is the closest living relative for decision making purposes. Mary NAM Social Work [facility]03-18-20[facility] Note* Care Plan Note - Mary Haynes BSW - 12/11/2024 10:38 AM EDT SW DISCHARGE/TREATMENT PLAN: 12/11/24 Pt to return to [facility] [phone] 1. Anticipate DC to home once medically stable. 2. Pt defers HH 3. SW to follow. Mary NAM Social Work [facility]03-18-2025 Consult note* Mary Haynes, POT LINING SUPERVISOR - 12/11/2024 10:24 AM EDTAssociated Order(s): IP CONSULT TO SOCIAL WORK SOCIAL WORK ASSESSMENT DATE: 12/11/24 PATIENT NAME: Carolina Hightower MEDICAL UNIT: [id number] PURPOSE OF SOCIAL WORK INTERVENTION/REFERRAL: SW consulted for, dcp ASSESSMENT: Interview conducted with/Information obtained from: A review of the pt medical record, spoke with tx team, as well as discussion with patient at bedside. Identifying Information & Presenting Problem: Per H&P, Patient is a 49 y.o. female with PMHx noted below, presenting via transfer from [facility] with c/o LLQ abdominal pain and lower back pain. She states the pain is bubbling and couldnot elaborate further, and it's been there for about a week, around the same time when she had her paracentesis on 12/06/24 at [facility]. Patient denies LANCE, fever, chill, nausea/vomiting, chest pain, shortness of breath, dizziness, palpitations, focal motor/sensory deficit, dysuria, or diarrhea. 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 Living Situation: Pt lives at the [facility]. Daily Functional Status DRAW PRESS OPERATOR: Patient is independent with ADL's. Support System: Family Medical Equipment: N/A Home Care Services (HH, Passport, Waiver, Private Caregivers, MOW etc) and Preferred Provider: Pt defers HH at this time. Community Services (mental health services, speciality clinics such as coumadin clinic, mental health services): [facility] [place] IDENTIFIED SOCIAL DETERMINATES OF HEALTH (if yes explain): Housing: N/A Food: N/A Medications: N/A Transportation: N/A MEDICAL HISTORY: Pertinent Past Hx: Past Medical History: Diagnosis Date Ascites Bipolar disorder Chronic hepatitis C virus infection Cirrhosis Kidney stone PCP: Ange Espinoza DO Insurance: Payor: [employer] / Plan: PUJA [place] / Product Type: *No Product type* / Recent Hospitalizations/ED Visits/Outpt Appts: Admission Last 6 Months Type Department Provider Description 07/02/2024 ED (DISCHARGE AF) Emergency Department Pete Ponce MD Alcoholic cirrhosis of liver with ascites (Primary Dx); Chronic hepatitis C with cirrhosis 07/05/2024 ED (DISCHARGE) Emergency Department Pete Ponce MD Cirrhosis of liver (Primary Dx) 07/08/2024 - 07/10/2024 ED to Hosp-Admission (Discharged) (ADMIT) General Medicine Tod Son DO; Lambert Veliz DO Ascites (Primary Dx); Amphetamine-type substance use disorder, severe 07/26/2024 ED (DISCHARGE AF) Emergency Department Pete Ponce MD Alcoholic cirrhosis of liver with ascites (Primary Dx) 09/01/2024 - 09/09/2024 ED to Hosp-Admission (Discharged) (ADMIT) Internal Medicine Unit Vanesa Hartman MD; Leah Hector DO; Cora Fierro MD; Araceli Shields DO Hepatic encephalopathy (Primary Dx); Ascites; Acute metabolic encephalopathy; Abnormal finding on GI tract imaging; Chronic hepatitis C with cirrhosis ; HE (hepatic encephalopathy) ; Chronic bilateral low back pain without sciatica; Alcoholic cirrhosis of liver with ascites ; Thrombocytopenia 09/28/2024 ED (DISCHARGE) Emergency Department Pete Ponce MD Chronic liver disease and cirrhosis (Primary Dx); Thrombocytopenia 10/04/2024 ED (DISCHARGE) Emergency Department Pete Ponce MD Cirrhosis of liver (Primary Dx) 11/19/2024 - 11/20/2024 ED (ELOPEMENT) Emergency Department Lambert Veliz DO Viral syndrome (Primary Dx) 11/29/2024 Pre-admit Endoscopy Katharina Welsh MD 12/10/2024 ED to Hosp-Admission (Current) (ADMIT) Clinical Decision Unit 6 Isabella Ch MD; Leah Hector DO Abdominal pain (Primary Dx); Ascites; Lower back pain ADVANCE DIRECTIVES/NEXT OF KIN IDENTIFICATION: Vannesa Hightower (Daughter) [phone] (H) No AD on file in [facility]. DISCUSSION & INTERVENTION: Treatment Team/Social Work Assessment of Needs and Disposition: Discussed dcp and possible needs. Patient & Family Perspective of Needs and Disposition: SW spoke with patient at bedside. [facility] plans [facility] d[facility]c. Pt defers HH at this time. No DME needed. Left voicemail with [facility] regarding transport. SW to follow. Discussion: SW educated patient on the role of the SW and that SW will continue to follow. SW informed patient that treatment options may vary based on the healthcare team recommendations and patient's progress.Patient voiced understanding. SW DISCHARGE/TREATMENT PLAN: 12/11/24 Pt to return to [facility], [place]- [phone] 1. Anticipate DC to home once medically stable. 2. Pt defers HH 3. SW to follow. Mary NAM Social Work [facility]-18-[facility] Note* Care Plan Note - Valentine Nieves LPN - 12/11/2024 6:25 AM EDT Problem: Falls, Moderate Risk For Goal: Absence of falls Description: Interventions: - Non-skid footwear with ambulation - Exercise program (if applicable) for strengthening - Address the P's during each pt encounter (rounding); offer bathroom more frequently for patient on diuretics, bowel prep, etc. - Siderails up X 2 (Upper left and upper right) - Bed low position and wheels locked - Chair/wheelchair locked - Minimize line tethering - Walkway free of clutter - Nightlight on evening/night hours - Keep door to pt room open (unless contraindication, isolation, etc.) - Call light, phone, table, and/or other pt necessities in reach (pt MUST demonstrate ability to properly use call light) - Appropriate fall bracelet on at all times - Provide pt/family with fall education on admission and transfers - Reorient pt to environment as appropriate - Remind pt/family to call for assistance with each encounter Outcome: Ongoing Problem: Discharge Planning Goal: Knowledge of discharge instructions Description: Interventions: 1. Consult social work for post discharge needs 2. Education, activity restrictions 3. Education, post discharge follow up 4. Education, prescribed medication 5. Education, when to call provider 6. Education, discharge diet Outcome: Ongoing Problem: Activity Intolerance Goal: Improved activity tolerance Description: Interventions: 1. Education, prescribed activity level 2. Progressive ambulation program Outcome: Ongoing Problem: Fluid Volume, Imbalanced, Risk for Goal: Balanced intake and output Description: Interventions: 1. Body weight monitoring 2. Intake and output measurments Outcome: Ongoing Problem: Infection, Risk For, Surgical Site (General) Goal: Absence of infection signs and symptoms Description: Instructions: - Wound assessment - surgical site - Incision care - Monitor lab results - Education, hand washing - Education, incision care Outcome: Ongoing Problem: Infection, Risk for Goal: Patient will be free from infection Description: Interventions: 1. Monitor for signs and symptoms of infection: fever, increased WBC, burning with urination or chills 2. Monitor insertion site for redness, tenderness, or drainage 3. Hand hygiene per CDC guidelines 4. Discontinuation of invasive devices when not needed 5. Place patient in appropriate isolation Outcome: Ongoing Problem: Nutrition Deficit Goal: Adequate nutritional intake Description: Interventions: -Consult to auto parts handler -Intake and output measurement -Calorie count if indicated Outcome: Ongoing Goal: Body weight within specified parameters Description: Interventions: - Body weight measurement Outcome: Ongoing Problem: Pain, Acute Goal: Communication of presence of pain Description: Interventions: - Nonpharmacologic pain management - Medication administration - Education, pain scale Outcome: Ongoing Problem: Skin Integrity, Impaired, Risk for Goal: Absence of pressure injury Description: Interventions: - Skin assessment - Patient repositioning every 2 hours if decreased mobility Outcome: Ongoing Problem: Deep Venous Thrombosis, Risk of Goal: Absence of deep venous thrombosis Description: Interventions: - Deep venous thrombosis risk assessment - Ensure patient is receiving antithrombotic medication for VTE prophylaxis - Activity promotion - Graduated anti-embolic stocking management - Intermittent pneumatic compression management. Outcome: Ongoing Goal: Knowledge of deep venous thrombosis Description: Interventions: - Education, deep venous thrombosis signs and symptoms - Education, ambulation - Education, graduated anti-embolic stockings - Education, deep venous thrombosis prophalaxis Outcome: Ongoing Problem: Tobacco Use Goal: Inpatient tobacco-use cessation counseling participation Description: Interventions: - Tobacco use assessment - Tobacco use cessation counseling - Consult to lung health specialist - Education, tobacco use cessation methods Outcome: Ongoing [facility]03-18-20[facility] Note* End of Shift Note - Valentine Nieves LPN - 12/11/2024 6:25 AM EDT Nursing End of Shift Summary Pertinent changes to patient conditions and/or care this shift: N/A Vital Signs Weight: 82.9 kg (182 lb 12.2 oz) (12/11/24 0500) Temp: 97.8 F (36.6 C) Temp Source: Oral Heart Rate:51 BP: (!) 79/44 Respirations: 16 Oxygen Saturation SpO2: 100 % O2 Delivery: Room air O2 Device: None (Room air) O2 Flow Rate (l/min): 0 l/min Incentive Spirometry Incentive Spirometry: No Diet Diet Regular;Fluid 1500cc; NA 2000mg Intake/Output Totals Intake/Output 12/10/24 0700 - 12/11/24 0659 [id number] 1280-0467 Total Intake P.O. 350 360 710 I.V. -- 0 0 Blood -- 0 0 Other -- 0 0 Total Intake 350 360 710 Output Urine -- 0 0 Urine -- 0 0 Weight of Briefs in mL -- 0 0 Urine Occurrence 1 x 2 x 3 x Emesis/NG output -- 0 0 Emesis -- 0 0 Emesis Occurrence 0 x 0 x 0 x Other -- 0 0 Other -- 0 0 Stool -- 0 0 Stool Occurrence 0 x 0 x 0 x Stool -- 0 0 Blood -- 0 0 Blood output -- 0 0 Total Output -- 0 0 Activity Activity: Up ad cyn Level of Assistance: Independent Activity Tolerance: Tolerated Well Ambulation Attempts this Shift: Did not ambulate this shift Telemetry Telemetry Abnormalities No Labs No results found for: FUNCTIONAL, PLTAGGREG Lab Results Component Value Date RBC 3.77 (L) 12/10/2024 WBC 4.7 12/10/2024 HCT 35.1 12/10/2024 HGB 12.2 12/10/2024 PLATELETCNT 55 (L) 12/10/2024 MCH 32.3 12/10/2024 MCHC 34.7 12/10/2024 MCV 93.0 12/10/2024 MPV 9.5 12/10/2024 Lab Results Component Value Date ALBUMIN 2.6 (L) 12/11/2024 SODIUM 138 12/11/2024 POTASSIUM 3.9 12/11/2024 CHLORIDE 111 12/11/2024 CO2 22 12/11/2024 ANIONGAP 5 12/11/2024 GLUCOSE 83 12/11/2024 CREATININE 0.9 12/11/2024 BUN 10 12/11/2024 CALCIUM 8.3 (L) 12/11/2024 PROTEINTOTAL 5.8 (L) 12/11/2024 TBILIRUBIN 1.8 (H) 12/11/2024 ALP 113 12/11/2024 AST 112 (H) 12/11/2024 ALTSGPT 65 (H) 12/11/2024 OSMOLALITY 274 12/11/2024 AGRATIO 0.8 12/11/2024 BC 11 12/11/2024 ESTIMATEDGFR 66 12/11/2024 Taking all meds Yes Any PRN meds given? No Current IV Infusions Diuretics SDOH Screen Assessed? Not Assessed Discharge Planning Home Expected Discharge Date Education Provided Other (Comment) Fall prevention [facility]-17-[facility]* Care Plan Note - Chilo Henry LPN - 12/10/2024 6:43 PM EDT Problem: Falls, Moderate Risk For Goal: Absence of falls Description: Interventions: - Non-skid footwear with ambulation - Exercise program (if applicable) for strengthening - Address the P's during each pt encounter (rounding); offer bathroom more frequently for patient on diuretics, bowel prep, etc. - Siderails up X 2 (Upper left and upper right) - Bed low position and wheels locked - Chair/wheelchair locked - Minimize line tethering - Walkway free of clutter - Nightlight on evening/night hours - Keep door to pt room open (unless contraindication, isolation, etc.) - Call light, phone, table, and/or other pt necessities in reach (pt MUST demonstrate ability to properly use call light) - Appropriate fall bracelet on at all times - Provide pt/family with fall education on admission and transfers - Reorient pt to environment as appropriate - Remind pt/family to call for assistance with each encounter Outcome: Ongoing Problem: Discharge Planning Goal: Knowledge of discharge instructions Description: Interventions: 1. Consult social work for post discharge needs 2. Education, activity restrictions 3. Education, post discharge follow up 4. Education, prescribed medication 5. Education, when to call provider 6. Education, discharge diet Outcome: Ongoing Problem: Activity Intolerance Goal: Improved activity tolerance Description: Interventions: 1. Education, prescribed activity level 2. Progressive ambulation program Outcome: Ongoing Problem: Fluid Volume, Imbalanced, Risk for Goal: Balanced intake and output Description: Interventions: 1. Body weight monitoring 2. Intake and output measurments Outcome: Ongoing Problem: Infection, Risk For, Surgical Site (General) Goal: Absence of infection signs and symptoms Description: Instructions: - Wound assessment - surgical site - Incision care - Monitor lab results - Education, hand washing - Education, incision care Outcome: Ongoing Problem: Infection, Risk for Goal: Patient will be free from infection Description: Interventions: 1. Monitor for signs and symptoms of infection: fever, increased WBC, burning with urination or chills 2. Monitor insertion site for redness, tenderness, or drainage 3. Hand hygiene per CDC guidelines 4. Discontinuation of invasive devices when not needed 5. Place patient in appropriate isolation Outcome: Ongoing Problem: Nutrition Deficit Goal: Adequate nutritional intake Description: Interventions: -Consult to auto parts handler -Intake and output measurement -Calorie count if indicated Outcome: Ongoing Goal: Body weight within specified parameters Description: Interventions: - Body weight measurement Outcome: Ongoing Problem: Pain, Acute Goal: Communication of presence of pain Description: Interventions: - Nonpharmacologic pain management - Medication administration - Education, pain scale Outcome: Ongoing Problem: Skin Integrity, Impaired, Risk for Goal: Absence of pressure injury Description: Interventions: - Skin assessment - Patient repositioning every 2 hours if decreased mobility Outcome: Ongoing Problem: Deep Venous Thrombosis, Risk of Goal: Absence of deep venous thrombosis Description: Interventions: - Deep venous thrombosis risk assessment - Ensure patient is receiving antithrombotic medication for VTE prophylaxis - Activity promotion - Graduated anti-embolic stocking management - Intermittent pneumatic compression management. Outcome: Ongoing Goal: Knowledge of deep venous thrombosis Description: Interventions: - Education, deep venous thrombosis signs and symptoms - Education, ambulation - Education, graduated anti-embolic stockings - Education, deep venous thrombosis prophalaxis Outcome: Ongoing Problem: Tobacco Use Goal: Inpatient tobacco-use cessation counseling participation Description: Interventions: - Tobacco use assessment - Tobacco use cessation counseling - Consult to lung health specialist - Education, tobacco use cessation methods Outcome: Ongoing [facility]03-17-2025 Note* End of Shift Note - Chilo Henry LPN - 12/10/2024 6:42 PM EDT Nursing End of Shift Summary Pertinent changes to patient conditions and/or care this shift: N\o Vital Signs Weight: 84.5 kg (186 lb 4.8 oz) (12/10/24 0115) Temp: 98.3 F (36.8 C) Temp Source: Oral Heart Rate:59 BP: 113/82 Respirations: 16 Oxygen Saturation SpO2: 100 % O2 Delivery: Room air O2 Device: None (Room air) O2 Flow Rate (l/min): 0 l/min Incentive Spirometry Diet Diet Regular;Fluid 1500cc; NA 2000mg Intake/Output Totals Intake/Output 12/09/24 0700 - 12/10/24 0659 (Not Admitted) 12/10/24 0700 - 12/11/24 0659 [id number] [id number] Total [id number] 1747-6406 Total Intake P.O. -- -- -- 350 -- 350 I.V. -- 100 100 -- -- -- Total Intake -- 100 100 350 -- 350 Output Urine -- -- -- -- -- -- Urine Occurrence -- -- -- 1 x -- 1 x Emesis/NG output -- -- -- -- -- -- Emesis Occurrence -- -- -- 0 x -- 0 x Stool -- -- -- -- -- -- Stool Occurrence -- -- -- 0 x -- 0 x Total Output -- -- -- -- -- -- Activity Ambulation Attempts this Shift: Did not ambulate this shift Telemetry Telemetry Abnormalities No Labs No results found for: FUNCTIONAL, PLTAGGREG Lab Results Component Value Date RBC 3.77 (L) 12/10/2024 WBC 4.7 12/10/2024 HCT 35.1 12/10/2024 HGB 12.2 12/10/2024 PLATELETCNT 55 (L) 12/10/2024 MCH 32.3 12/10/2024 MCHC 34.7 12/10/2024 MCV 93.0 12/10/2024 MPV 9.5 12/10/2024 Lab Results Component Value Date ALBUMIN 2.7 (L) 12/10/2024 SODIUM 136 12/10/2024 POTASSIUM 3.8 12/10/2024 CHLORIDE 112 (H) 12/10/2024 CO2 21 12/10/2024 ANIONGAP 3 12/10/2024 GLUCOSE 82 12/10/2024 CREATININE 0.8 12/10/2024 BUN 7 12/10/2024 CALCIUM 8.6 12/10/2024 PROTEINTOTAL 5.9 (L) 12/10/2024 TBILIRUBIN 2.6 (H) 12/10/2024 ALP 121 12/10/2024 AST 109 (H) 12/10/2024 ALTSGPT 67 (H) 12/10/2024 OSMOLALITY 269 12/10/2024 AGRATIO 0.8 12/10/2024 BC 9 (L) 12/10/2024 ESTIMATEDGFR 76 12/10/2024 Taking all meds Yes Any PRN meds given? No Current IV Infusions Diuretics SDOH Screen Assessed? Not Assessed Discharge Planning Home Expected Discharge Date Education Provided [facility] Note* Care Plan Note - Gwyn Garsia RN - 12/10/2024 5:31 PM EDT Problem: Falls, Moderate Risk For Goal: Absence of falls Description: Interventions: - Non-skid footwear with ambulation - Exercise program (if applicable) for strengthening - Address the P's during each pt encounter (rounding); offer bathroom more frequently for patient on diuretics, bowel prep, etc. - Siderails up X 2 (Upper left and upper right) - Bed low position and wheels locked - Chair/wheelchair locked - Minimize line tethering - Walkway free of clutter - Nightlight on evening/night hours - Keep door to pt room open (unless contraindication, isolation, etc.) - Call light, phone, table, and/or other pt necessities in reach (pt MUST demonstrate ability to properly use call light) - Appropriate fall bracelet on at all times - Provide pt/family with fall education on admission and transfers - Reorient pt to environment as appropriate - Remind pt/family to call for assistance with each encounter Outcome: Progress Met Problem: Discharge Planning Goal: Knowledge of discharge instructions Description: Interventions: 1. Consult social work for post discharge needs 2. Education, activity restrictions 3. Education, post discharge follow up 4. Education, prescribed medication 5. Education, when to call provider 6. Education, discharge diet Outcome: Progress Met Problem: Activity Intolerance Goal: Improved activity tolerance Description: Interventions: 1. Education, prescribed activity level 2. Progressive ambulation program Outcome: Ongoing Problem: Fluid Volume, Imbalanced, Risk for Goal: Balanced intake and output Description: Interventions: 1. Body weight monitoring 2. Intake and output measurments Outcome: Ongoing Problem: Infection, Risk For, Surgical Site (General) Goal: Absence of infection signs and symptoms Description: Instructions: - Wound assessment - surgical site - Incision care - Monitor lab results - Education, hand washing - Education, incision care Outcome: Ongoing Problem: Infection, Risk for Goal: Patient will be free from infection Description: Interventions: 1. Monitor for signs and symptoms of infection: fever, increased WBC, burning with urination or chills 2. Monitor insertion site for redness, tenderness, or drainage 3. Hand hygiene per CDC guidelines 4. Discontinuation of invasive devices when not needed 5. Place patient in appropriate isolation Outcome: Ongoing Problem: Nutrition Deficit Goal: Adequate nutritional intake Description: Interventions: -Consult to auto parts handler -Intake and output measurement -Calorie count if indicated Outcome: Ongoing Goal: Body weight within specified parameters Description: Interventions: - Body weight measurement Outcome: Ongoing Problem: Pain, Acute Goal: Communication of presence of pain Description: Interventions: - Nonpharmacologic pain management - Medication administration - Education, pain scale Outcome: Ongoing Problem: Skin Integrity, Impaired, Risk for Goal: Absence of pressure injury Description: Interventions: - Skin assessment - Patient repositioning every 2 hours if decreased mobility Outcome: Ongoing Problem: Deep Venous Thrombosis, Risk of Goal: Absence of deep venous thrombosis Description: Interventions: - Deep venous thrombosis risk assessment - Ensure patient is receiving antithrombotic medication for VTE prophylaxis - Activity promotion - Graduated anti-embolic stocking management - Intermittent pneumatic compression management. Outcome: Ongoing Goal: Knowledge of deep venous thrombosis Description: Interventions: - Education, deep venous thrombosis signs and symptoms - Education, ambulation - Education, graduated anti-embolic stockings - Education, deep venous thrombosis prophalaxis Outcome: Ongoing Problem: Tobacco Use Goal: Inpatient tobacco-use cessation counseling participation Description: Interventions: - Tobacco use assessment - Tobacco use cessation counseling - Consult to lung health specialist - Education, tobacco use cessation methods Outcome: Ongoing [facility]03-[facility] Consult note* Katharina Welsh MD - 12/10/2024 11:00 AM EDTAssociated Order(s): IP CONSULT TO GASTROENTEROLOGY GASTROENTEROLOGY CONSULT NOTE Miranda Marques 12/10/2024 Patient Name: Carolina Hightower : 1975 Medical Record: [id number] REQUESTING PHYSICIAN Isabella Ch MD PRIMARY CARE PHYSICIAN Ange Espinoza DO REASON FOR CONSULTATION Carolina Hightower is a 49 y.o. female who was referred for consultation for cirrhosis, abdominal pain. HPI: This is a 49 y.o. female with a history of Hepatitis C cirrhosis, bipolar disorder who presented tot ED yesterday with complaint of back pain, abdominal pain. Patient was admitted for further evaluation and management. Patient reports primary presenting symptom was back pain. She is unable to discern onset. She reports onset of left sided abdominal pain 4 days ago. Unable to appreciate any alleviating or aggravating factors prior to admission. Reports some improvement since paracentesis. Patient denies overt GI bleeding. Denies N, V. Denies fever. She reports she is compliant with diuretics, Lactulose, and Xifaxin. States she has at least 3 loose stools daily. Denies confusion. Patient underwent paracentesis today with removal of 450 mL fluid. She has Hgb 12.2 gm. Total bili 2.2, ALP 121, AST 109, ALT 67 EGD 08/2024 with grade II EV, banded. Gastric ulcers and PHG. Patient was last seen in clinic 09/20/2024. Scheduled for EGD earlier this month but did not present. She receives weekly paracentesis prn. She was referred to [facility] this past August, referral received and acknowledged. Does not appear patient was scheduled. MEDICAL HISTORY Past Medical History: Diagnosis Date Ascites Bipolar disorder Chronic hepatitis C virus infection Cirrhosis Kidney stone SURGICAL HISTORY Past Surgical History: Procedure Laterality Date HX EGJ N/A 09/07/2024 EGD /C BIOPSY performed by Katharina Welsh MD at [facility] HX EGJ 09/07/2024 EGD /C BAND LIGATION VARICES performed by Katharina Welsh MD at [facility] HX LIVER BIOPSY HX POST STERILIZATION PARACENTESIS N/A 07/02/2024 Paracentesis performed by Max Rico MD at [facility] PARACENTESIS N/A 07/09/2024 Paracentesis performed by Ginger Milton MD at [facility] PARACENTESIS N/A 07/19/2024 Paracentesis performed by Minda Gómez MD at [facility] PARACENTESIS N/A 07/26/2024 Paracentesis performed by Max Rico MD at [facility] PARACENTESIS N/A 08/02/2024 Paracentesis performed by Ginger Milton MD at [facility] PARACENTESIS N/A 08/09/2024 Paracentesis performed by Minda Gómez MD at [facility] PARACENTESIS N/A 08/16/2024 Paracentesis performed by Ginger Milton MD at [facility] PARACENTESIS N/A 08/22/2024 Paracentesis performed by Max Rico MD at [facility] PARACENTESIS N/A 08/30/2024 Paracentesis performed by Minda Gómez MD at [facility] PARACENTESIS N/A 09/04/2024 Paracentesis performed by Ginger Milton MD at [facility] PARACENTESIS N/A 09/13/2024 Paracentesis performed by Max Rico MD at [facility] PARACENTESIS N/A 09/20/2024 Paracentesis performed by Minda Gómez MD at [facility] PARACENTESIS N/A 09/27/2024 Paracentesis performed by Ginger Milton MD at [facility] PARACENTESIS N/A 10/03/2024 Paracentesis performed by Max Rico MD at [facility] PARACENTESIS N/A 10/18/2024 Paracentesis performed by Ginger Milton MD at [facility] PARACENTESIS N/A 11/28/2024 Paracentesis performed by Minda Gómez MD at [facility] PARACENTESIS N/A 12/06/2024 Paracentesis performed by Max Rico MD at [facility] PARACENTESIS N/A 12/10/2024 Paracentesis performed by Ginger Milton MD at [facility] ULTRASOUND GUIDANCE N/A 07/02/2024 Ultrasound Guidance performed by Max Rico MD at [facility] ULTRASOUND GUIDANCE N/A 07/09/2024 Ultrasound Guidance performed by Ginger Milton MD at [facility] ULTRASOUND GUIDANCE N/A 07/19/2024 Ultrasound Guidance performed by Minda Gómez MD at [facility] ULTRASOUND GUIDANCE N/A 07/26/2024 Ultrasound Guidance performed by Max Rico MD at [facility] ULTRASOUND GUIDANCE N/A 08/02/2024 Ultrasound Guidance performed by Ginger Milton MD at [facility] ULTRASOUND GUIDANCE N/A 08/09/2024 Ultrasound Guidance performed by Minda Gómez MD at [facility] ULTRASOUND GUIDANCE N/A 08/16/2024 Ultrasound Guidance performed by Ginger Milton MD at [facility] ULTRASOUND GUIDANCE N/A 08/22/2024 Ultrasound Guidance performed by Max Rico MD at [facility] ULTRASOUND GUIDANCE N/A 08/30/2024 Ultrasound Guidance performed by Minda Gómez MD at [facility] ULTRASOUND GUIDANCE N/A 09/04/2024 Ultrasound Guidance performed by Ginger Milton MD at [facility] ULTRASOUND GUIDANCE N/A 09/13/2024 Ultrasound Guidance performed by Max Rico MD at [facility] ULTRASOUND GUIDANCE N/A 09/20/2024 Ultrasound Guidance performed by Minda Gómez MD at [facility] ULTRASOUND GUIDANCE N/A 09/27/2024 Ultrasound Guidance performed by Ginger Milton MD at [facility] ULTRASOUND GUIDANCE N/A 10/03/2024 Ultrasound Guidance performed by Max Rico MD at [facility] ULTRASOUND GUIDANCE N/A 10/18/2024 Ultrasound Guidance performed by Ginger Milton MD at [facility] ULTRASOUND GUIDANCE N/A 10/30/2024 Ultrasound Guidance performed by Minda Gómez MD at [facility] ULTRASOUND GUIDANCE N/A 11/28/2024 Ultrasound Guidance performed by Minda Gómez MD at [facility] ULTRASOUND GUIDANCE N/A 12/06/2024 Ultrasound Guidance performed by Max Rico MD at [facility] ULTRASOUND GUIDANCE N/A 12/10/2024 Ultrasound Guidance performed by Ginger Milton MD at [facility] MEDICATIONS Medications Prior to Admission Medication Sig Dispense Refill Last Dose lactulose (CHRONULAC) 10 gram/15 mL solution Take 45 mL by mouth Three times a day. 1000 mL 2 rifAXIMin (XIFAXAN) 550 mg tablet Take 1 Tablet by mouth Twice a day for 90 days. 60 Tablet 2 furosemide (LASIX) 40 mg tablet Take 1 Tablet by mouth Once Daily. 30 Tablet 3 Benzonatate (TESSALON PERLES) 200 mg capsule Take 1 Capsule by mouth Three times a day. 30 Capsule 0 [] predniSONE (DELTASONE) 20 mg tablet Take 2 Tabs by mouth Once Daily for 3 days, THEN 1 Tablet Once Daily for 2 days, THEN 0.5 Tabs Once Daily for 2 days. 9 Tablet 0 [] nitrofurantoin, macrocrystal-mono, (MACROBID) 100 mg capsule Take 1 Capsule by mouth Twice a day for 5 days. Indications: inflammation of the bladder 10 Capsule 0 [] fluconazole (DIFLUCAN) 150 mg tablet Take 1 Tablet by mouth One time only for 1 dose. 1 Tablet 0 [] phenazopyridine (PYRIDIUM) 200 mg tablet Take 1 Tablet by mouth Three times a day for 2 days. 6 Tablet 0 ondansetron (ZOFRAN-ODT) 4 mg disintegrating tablet Take 1 Tablet by mouth Every 6 hours as needed.16 Tablet 0 [] doxycycline hyclate (VIBRA-TABS) 100 mg tablet Take 1 Tablet by mouth Twice a day for 7 days. 14 Tablet 0 Promethazine-DM (PROMETHAZINE-DM) 6.25-15 mg/5 mL syrup Take 5 mL by mouth EVERY 6 TO 8 HOURS PRN for Cough. 118 mL 0 pantoprazole (PROTONIX) [address] tablet Take 1 Tablet by mouth Once Daily for 90 days. 30 Tablet 2 traMADoL (ULTRAM) 50 mg tablet Take 1 Tablet by mouth Every 12 hours as needed. 6 Tablet 0 methocarbamoL (ROBAXIN) 500 mg tablet Take 1 Tablet by mouth Twice a day as needed. 20 Tablet 0 hydrOXYzine hcl (ATARAX) 25 mg tablet Take 25 mg by mouth Twice a day as needed for Itching. traZODone (DESYREL) 50 mg tablet Take 50 mg by mouth At bedtime. spironolactone 50 mg tablet Take 2 Tabs by mouth Once Daily for 360 days. 180 Tablet 3 lurasidone (LATUDA) 20 mg tablet Take 20 mg by mouth Once Daily. busPIRone (BUSPAR) 10 mg tablet Take 10 mg by mouth Three times a day. desvenlafaxine succinate (PRISTIQ) 50 mg tablet Take 50 mg by mouth Once Daily. Take 25mg daily gabapentin (NEURONTIN) 100 mg capsule Take 300 mg by mouth Twice a day. fluticasone propionate (FLONASE) 50 mcg/Actuation nasal spray Prather 50 mcg in each nostril Once Daily. One spray both nostrils daily ferrous sulfate 325 mg (65 mg iron) DR tablet Take 325 mg by mouth Once Daily. topiramate (TOPAMAX) 25 mg Take 25 mg by mouth Once Daily. naloxone (NARCAN) 4 mg/actuation nasal spray Prather 1 Prather in nose As directed for 1 dose. Call 911, Administer via Nasal every 3-5 min until patient becomes responsive. Repeat as many times as necessary for pt to become responsive. 2 Each 11 Current Facility-Administered Medications Medication Dose Route Frequency Provider Last Rate Last Admin cefTRIAXone (ROCEPHIN) 2 g in NS (sodium chloride 0.9%) 100 mL (MINI-BAG) 2 g Intravenous Q24H Tommie New MD Stopped at 12/10/24 0524 rifAXIMin (XIFAXAN) tab 550 mg 550 mg Oral BID Tommie New MD furosemide (LASIX) tab 40 mg 40 mg Oral DAILY Tommie New MD spironolactone (ALDACTONE) tab 100 mg 100 mg Oral DAILY Tommie New MD lactulose (CHRONULAC) 20 gram/30 mL soln 30 g 30 g Oral TID Tommie New MD pantoprazole (PROTONIX) DR tab 40 mg 40 mg Oral DAILY Tommie New MD busPIRone (BUSPAR) tab 10 mg 10 mg Oral TID Tommie New MD traZODone (DESYREL) tab 50 mg 50 mg Oral QHS PRN Tommie New MD FLUoxetine (PROzac) cap 20 mg 20 mg Oral DAILY Tommie New MD ipratropium-albuteroL (DUO-NEB) 0.5 mg-3 mg(2.5 mg base)/3 mL neb soln 3 mL 3 mL Inhalation Q6H PRTommie Jefferson MD Lactobacillus rhamnosus GG (CULTURELLE) 15 billion cell sprinke cap 1 Capsule 1 Capsule Oral BID Tommie New MD sodium chloride flush 0.9 % syringe 10 mL 10 mL Intravenous Q8H Tommie New MD 10 mL at 12/10/24 0613 sodium chloride flush 0.9 % syringe 10 mL 10 mL Intravenous PRN Tommie New MD potassium chloride SA (KLOR-CON M20) tab 20 mEq 20 mEq Oral DIR PRN Tommie New MD magnesium sulfate in water (2g/50mL premix) piggyback (PREMIX) 2 g 2 g Intravenous DIR PRN Tommie New MD calcium gluconate in NaCl (ISO-OS) 100mL piggyback (PREMIX) 2 g 2 g Intravenous DIR PRN Tommie New MD acetaminophen (TYLENOL) tab 650 mg 650 mg Oral Q6H PRN Tommie New MD acetaminophen (TYLENOL) tab 500 mg 500 mg Oral Q4H PRN Tommie New MD 500 mg at 12/10/24 0422 LIDOCAINE (PF) 20 MG/ML (2 %) INJECTION SOLUTION (Pyxis override) ALLERGIES Allergies Allergen Reactions Wellbutrin [Bupropion] Other (See Comments) seizures Codeine Hives SOCIAL HISTORY Social History Socioeconomic History Marital status: Other Tobacco Use Smoking status: Every Day Current packs/day: 1.00 Types: Cigarettes Smokeless tobacco: Never Substance and Sexual Activity Alcohol use: Not Currently Drug use: Not Currently Types: Methamphetamines Comment: 2023 Sexual activity: Not Currently Social Determinants of Health Financial Resource Strain: Medium Risk (11/22/2023) [facility] Overall Financial Resource Strain (CARDIA) Difficulty of Paying Living Expenses: Somewhat hard Food Insecurity: No Food Insecurity (09/02/2024) Hunger Vital Sign Worried About Running Out of Food in the Last Year: Never true Ran Out of Food in the Last Year: Never true Recent Concern: Food Insecurity - Food Insecurity Present (07/09/2024) Hunger Vital Sign Ran Out of Food in the Last Year: Often true Transportation Needs: No Transportation Needs (09/02/2024) PRAPARE - Transportation Lack of Transportation (Medical): No Lack of Transportation (Non-Medical): No Intimate Partner Violence: Not At Risk (09/02/2024) Humiliation, Afraid, Rape, and Kick questionnaire Fear of Current or Ex-Partner: No Emotionally Abused: No Physically Abused: No Sexually Abused: No Housing Stability: Unknown (09/02/2024) Housing Stability Vital Sign Unable to Pay for Housing in the Last Year: No Homeless in the Last Year: No Recent Concern: Housing Stability - High Risk (07/09/2024) Housing Stability Vital Sign Unstable Housing in the Last Year: Yes FAMILY HISTORY Family History Problem Relation Name Age of Onset Stroke Mother High Cholesterol Mother Hypertension Mother Diabetes Mother Lung Disease Father Thyroid Disease Maternal Grandmother REVIEW OF SYSTEMS Review of Systems Constitutional: Positive for malaise/fatigue. Negative for chills, fever and weight loss. Gastrointestinal: Positive for abdominal pain. Negative for blood in stool, constipation, diarrhea,melena, nausea and vomiting. Musculoskeletal: Positive for back pain. All other systems reviewed and are negative. PHYSICAL EXAM Vital Signs: Recorded Vitals 12/10/24 0900 12/10/24 0905 12/10/24 0910 12/10/24 1109 BP: (!) 87/60 103/58 (!) 96/52 106/60 Pulse: 75 76 73 58 Resp: 18 Temp: 98.5 F (36.9 C) TempSrc: Oral SpO2: 98% 100% 100% 99% Body mass index is 34.07 kg/m . Physical Exam Vitals and nursing note reviewed. Constitutional: General: She is not in acute distress. Eyes: General: Scleral icterus (subtle) present. Cardiovascular: Rate and Rhythm: Normal rate and regular rhythm. Heart sounds: Normal heart sounds. No murmur heard. Abdominal: General: Abdomen is protuberant. Bowel sounds are normal. There is no distension. Palpations: Abdomen is soft. Tenderness: There is no abdominal tenderness. Skin: General: Skin is warm and dry. Capillary Refill: Capillary refill takes less than 2 seconds. Neurological: Mental Status: She is alert and oriented to person, place, and time. Comments: No asterixis INTAKE & OUTPUT Intake/Output Summary (Last 24 hours) at 12/10/2024 1140 Last data filed at 12/10/2024 0524 Gross per 24 hour Intake 100 ml Output -- Net 100 ml LABS Lab Results Component Value Date/Time WBC 4.7 12/10/2024 0402 HGB 12.2 12/10/2024 0402 HCT 35.1 12/10/2024 0402 MCV 93.0 12/10/2024 0402 MCHC 34.7 12/10/2024 0402 PLATELETCNT 55 12/10/2024 0402 CMP: Lab Results Component Value Date/Time SODIUM 136 12/10/2024 0402 POTASSIUM 3.8 12/10/2024 0402 CHLORIDE 112 12/10/2024 0402 CO2 21 12/10/2024 0402 GLUCOSE 82 12/10/2024 0402 BUN 7 12/10/2024 0402 CREATININE 0.8 12/10/2024 0402 CALCIUM 8.6 12/10/2024 0402 PROTEINTOTAL 5.9 12/10/2024 0402 TBILIRUBIN 2.6 12/10/2024 0402 ALP 121 12/10/2024 0402 AST 109 12/10/2024 0402 ALTSGPT 67 12/10/2024 0402 ALBUMIN 2.7 12/10/2024 0402 AGRATIO 0.8 12/10/2024 0402 Lab Results Component Value Date INR 1.7 (H) 12/10/2024 INR 1.5 (H) 11/08/2024 INR 1.6 (H) 09/28/2024 PROTIME 20.1 (H) 12/10/2024 PROTIME 17.9 (H) 11/08/2024 PROTIME 18.5 (H) 09/28/2024 Lab Results Component Value Date LIPASE 37 12/10/2024 ASSESSMENT AND PLAN Patient discussed with Dr. Welsh. Per Dr. Welsh orders as follows. 1. Decompensated HCV cirrhosis with ascites. + EV. No overt HE, no asterixis. Elevated AFP last admission, no lesions noted on imaging. -MELD Na 18 -AFP -RUQ US -paracentesis today with removal of 450 mL -Aldactone as ordered -Lasix as ordered -Lactulose as ordered -Xifaxan as ordered -2 Gm Na diet, 1500 cc FR -referral to [facility] placed and received 08/2024, will ask office personnel to reach out and facilitate. -review of Care Everywhere indicates [facility] no longer covered by insurance -EGD as outpatient 2. Abdominal pain in setting of above, rule out SBP -as above -follow ascitic fluid -antibiotics as ordered 3. Chronic Hepatitis C -last HCV quant 10/2023 38,400 -patient denies any prior treatment, discussed need for treatment and follow up in clinic -follow up in clinic after discharge 4. Back pain -defer evaluation and management to primary -pain management per medicine See orders. Further management pending hospital course. Patient and/or family was updated on diagnoses, procedures, tests, results, and plan of care. Thank you for consulting. Electronically signed by: Miranda Marques APRN 12/10/2024 11:40 AM RADIO REPAIR TEACHER NOTE Patient seen on : 12-10-2024 HPI: as noted above Physical Exam: General: alert, no distress Mental status:Alert, oriented, thought content appropriate HEENT: mild icterus CVS: normal S1 and S2 Respiratory: chest clear to auscultation bilaterally Abdomen:sl distended, soft, mild gen tenderness, No organomegaly or masses, BS normal Extremities: extremities normal, atraumatic, no cyanosis or edema Motor: No asterixis Impression/Recommendations: Please see above for my assessment and Plan. I have personally performed a face to face diagnostic evaluation on this patient and discussed his/her management with the NPP. I reviewed the NPP note and agree with the documented findings and planof care except for additional findings as listed above. Signed: Katharina Welsh M.D., MD 12/10/2024 5:02 PM [facility]03-17-[facility] Consult note* Ginger Milton MD - 12/10/2024 8:39 AM EDTAssociated Order(s): IP CONSULT TO INTERVENTIONAL RADIOLOGY Images from the original note were not included. Interventional Radiology Consult Name: Carolina Hightower : 1975 12/10/2024 HPI: Liver disease and recurrent large volume ascites Past Medical History: Diagnosis Date Ascites Bipolar disorder Chronic hepatitis C virus infection Cirrhosis Kidney stone Current Facility-Administered Medications on File Prior to Encounter Medication Dose Route Frequency Provider Last Rate Last Admin [COMPLETED] lidocaine (preservative free) 20 mg/mL (2 %) injection ONE TIME PRN Max Rico MD 10 mL at 12/06/24 1001 [COMPLETED] lidocaine (preservative free) 20 mg/mL (2 %) injection ONE TIME PRN Minda Gómez MD 10 mL at 11/28/24 0958 Current Outpatient Medications on File Prior to Encounter Medication Sig Dispense Refill lactulose (CHRONULAC) 10 gram/15 mL solution Take 45 mL by mouth Three times a day. 1000 mL 2 rifAXIMin (XIFAXAN) 550 mg tablet Take 1 Tablet by mouth Twice a day for 90 days. 60 Tablet 2 furosemide (LASIX) 40 mg tablet Take 1 Tablet by mouth Once Daily. 30 Tablet 3 Benzonatate (TESSALON PERLES) 200 mg capsule Take 1 Capsule by mouth Three times a day. 30 Capsule 0 [] predniSONE (DELTASONE) 20 mg tablet Take 2 Tabs by mouth Once Daily for 3 days, THEN 1 Tablet Once Daily for 2 days, THEN 0.5 Tabs Once Daily for 2 days. 9 Tablet 0 [] nitrofurantoin, macrocrystal-mono, (MACROBID) 100 mg capsule Take 1 Capsule by mouth Twice a day for 5 days. Indications: inflammation of the bladder 10 Capsule 0 [] fluconazole (DIFLUCAN) 150 mg tablet Take 1 Tablet by mouth One time only for 1 dose. 1 Tablet 0 [] phenazopyridine (PYRIDIUM) 200 mg tablet Take 1 Tablet by mouth Three times a day for 2 days. 6 Tablet 0 ondansetron (ZOFRAN-ODT) 4 mg disintegrating tablet Take 1 Tablet by mouth Every 6 hours as needed.16 Tablet 0 [] doxycycline hyclate (VIBRA-TABS) 100 mg tablet Take 1 Tablet by mouth Twice a day for 7 days. 14 Tablet 0 Promethazine-DM (PROMETHAZINE-DM) 6.25-15 mg/5 mL syrup Take 5 mL by mouth EVERY 6 TO 8 HOURS PRN for Cough. 118 mL 0 pantoprazole (PROTONIX) [address] tablet Take 1 Tablet by mouth Once Daily for 90 days. 30 Tablet 2 traMADoL (ULTRAM) 50 mg tablet Take 1 Tablet by mouth Every 12 hours as needed. 6 Tablet 0 methocarbamoL (ROBAXIN) 500 mg tablet Take 1 Tablet by mouth Twice a day as needed. 20 Tablet 0 hydrOXYzine hcl (ATARAX) 25 mg tablet Take 25 mg by mouth Twice a day as needed for Itching. traZODone (DESYREL) 50 mg tablet Take 50 mg by mouth At bedtime. spironolactone 50 mg tablet Take 2 Tabs by mouth Once Daily for 360 days. 180 Tablet 3 lurasidone (LATUDA) 20 mg tablet Take 20 mg by mouth Once Daily. busPIRone (BUSPAR) 10 mg tablet Take 10 mg by mouth Three times a day. desvenlafaxine succinate (PRISTIQ) 50 mg tablet Take 50 mg by mouth Once Daily. Take 25mg daily gabapentin (NEURONTIN) 100 mg capsule Take 300 mg by mouth Twice a day. fluticasone propionate (FLONASE) 50 mcg/Actuation nasal spray Prather 50 mcg in each nostril Once Daily. One spray both nostrils daily ferrous sulfate 325 mg (65 mg iron) DR tablet Take 325 mg by mouth Once Daily. topiramate (TOPAMAX) 25 mg Take 25 mg by mouth Once Daily. naloxone (NARCAN) 4 mg/actuation nasal spray Prather 1 Prather in nose As directed for 1 dose. Call 911, Administer via Nasal every 3-5 min until patient becomes responsive. Repeat as many times as necessary for pt to become responsive. 2 Each 11 Patient's allergies: Allergies Allergen Reactions Wellbutrin [Bupropion] Other (See Comments) seizures Codeine Hives Physical Exam HENT: Head: Normocephalic. Cardiovascular: Rate and Rhythm: Normal rate. Pulmonary: Effort: Pulmonary effort is normal. Abdominal: General: There is distension. Musculoskeletal: General: Normal range of motion. Neurological: Mental Status: She is alert. Mental status is at baseline. A/P: Ascites. Will proceed with requested paracentesis. Discussed the potential benefits, risks, and alternatives to the proposed procedure. Ms. Hightower is in agreement with the plan of care. Signed: Ginger Milton M.D. 12/10/2024 8:39 AM [facility] Work Phone: [phone] 740-415103-17-2025 Emergency department Note* Radha Bauer RN - 12/10/2024 6:00 AM EDT ED Hourly rounding completed at this time. Patient is resting. Patient reports pain 0/10. Did not wake pt up.Currently, patient has no one at bedside. Updated the patient on plan of care including pending ED results and disposition status - of admit - bed assigned 3C153 dirty . Call light at bedside and patient demonstrated usage. Will continue to monitor [facility]03-17-2025 Emergency department Note* Radha Bauer RN - 12/10/2024 6:00 AM EDT ED Hourly rounding completed at this time. Patient is resting. Patient reports pain 0/10. Did not wake pt up.Currently, patient has no one at bedside. Updated the patient on plan of care including pending ED results and disposition status - of admit - bed assigned 3C153 dirty . Call light at bedside and patient demonstrated usage. Will continue to monitor * Radha Bauer RN - 12/10/2024 5:36 AM EDT Talked with dr rowan , no new orders received at this time * Radha Bauer RN - 12/10/2024 5:32 AM EDT Pt states he pain meds have not helped any , asking for pain meds , also asking for something to drink let her know she can not have anything to drink , per the Then wants me to check her sugar it is low , fsbs [address] rowan to ask about meds , * Radha Bauer RN - 12/10/2024 4:00 AM EDT ED Hourly rounding completed at this time. Patient is resting. Patient reports pain 10/10.when I wake her up laying on rt side. Currently, patient has no one at bedside. Updated the patient on plan of care including pending ED results and disposition status - of admit - bed assigned 3C153 dirty . . Call light at bedside and patient demonstrated usage. * Radha Bauer RN - 12/10/2024 3:[address] rowan did not call back but has placed some orders at this time * Radha Bauer RN - 12/10/2024 3:17 AM EDT Pt placed back on bp and sat monitors , pt wants pain meds , call into the provider at this time. Skin w/d pink a/ox4 no distress. * Radha Bauer RN - 12/10/2024 1:22 AM EDT Pt sent to ed by ems from [facility] for abd pain and back pain for 3-4 days, had paracentesis her thurs. Pt had normal labs and ct abd with contrast all neg at [facility] , upon arriavl to ed , skin w/d pink a/ox4 no distress, asking for pain meds , pain is 8 per pt . documented in this [facility]03-17-2025 Emergency department Note* Radha Bauer RN - 12/10/2024 5:36 AM EDT Talked with dr rowan , no new orders received at this time [facility]03-17-[facility] Emergency department Note* Radha Bauer RN - 12/10/2024 5:32 AM EDT Pt states he pain meds have not helped any , asking for pain meds , also asking for something to drink let her know she can not have anything to drink , per the dr. Then wants me to check her sugar it is low , fsbs [address] rowan to ask about meds , [facility]03-17-2025 Emergency department Note* Radha Bauer RN - 12/10/2024 4:00 AM EDT ED Hourly rounding completed at this time. Patient is resting. Patient reports pain 10/10.when I wake her up laying on rt side. Currently, patient has no one at bedside. Updated the patient on plan of care including pending ED results and disposition status - of admit - bed assigned 3C153 dirty . . Call light at bedside and patient demonstrated usage. [facility]03-17-2025 Emergency department Note* Radha Bauer RN - 12/10/2024 3:[address] rowan did not call back but has placed some orders at this time [facility]03-17-2025 History and physical note* Tommie New MD - 12/10/2024 3:44 AM EDT Images from the original note were not included. HISTORY AND PHYSICAL Service: Hospital Medicine Author: Tommie New Patient Name: Carolina AGUILARN:[id number] GORGE:[id number] 1975 PMD: Ange Espinoza DO Admission date: 12/10/2024 1:01 AM History of Present Illness: Patient is a 49 y.o. female with PMHx noted below, presenting via transfer from [facility] with c/o LLQ abdominal pain and lower back pain. She states the pain is bubbling and could not elaboratefurther, and it's been there for about a week, around the same time when she had her paracentesis on 12/06/24 at [facility] Patient denies LANCE, fever, chill, nausea/vomiting, chest pain, shortness of breath, dizziness, palpitations, focal motor/sensory deficit, dysuria, or diarrhea. 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 Past Medical History: Patient has a past medical history of Ascites, Bipolar disorder, Chronic hepatitis C virus infection, Cirrhosis, and Kidney stone. Past Surgical History: Patient has a past surgical history that includes Hx Liver Biopsy; Hx Post Sterilization; Paracentesis (N/A, 07/02/2024); Ultrasound Guidance (N/A, 07/02/2024); Paracentesis (N/A, 07/09/2024); Ultrasound Guidance (N/A, 07/09/2024); Paracentesis (N/A, 07/19/2024); Ultrasound Guidance (N/A, 07/19); Paracentesis (N/A, 07/26/2024); Ultrasound Guidance (N/A, 07/26/2024); Paracentesis (N/A, 08/02/2024); Ultrasound Guidance (N/A, 08/02/2024); Paracentesis (N/A, 08/09/2024); Ultrasound Guidance(N/A, 08/09/2024); Paracentesis (N/A, 08/16/2024); Ultrasound Guidance (N/A, 08/16/2024); Paracentesis (N/A, 08/22/2024); Ultrasound Guidance (N/A, 08/22/2024); Paracentesis (N/A, 08/30/2024); Ultrasound Guidance (N/A, 08/30/2024); Paracentesis (N/A, 09/04/2024); Ultrasound Guidance (N/A, 09/04/2024); Hx EGJ (N/A, 09/07/2024); Hx EGJ (09/07/2024); Paracentesis (N/A, 09/13/2024); Ultrasound Guidance(N/A, 09/13/2024); Paracentesis (N/A, 09/20/2024); Ultrasound Guidance (N/A, 09/20/2024); Paracentesis (N/A, 09/27/2024); Ultrasound Guidance (N/A, 09/27/2024); Paracentesis (N/A, 10/03/2024); Ultrasound Guidance (N/A, 10/03/2024); Paracentesis (N/A, 10/18/2024); Ultrasound Guidance (N/A, 10/18/2024); Ultrasound Guidance (N/A, 10/30/2024); Paracentesis (N/A, 11/28/2024); Ultrasound Guidance (N/A, 11/28/2024); Paracentesis (N/A, 12/06/2024); and Ultrasound Guidance (N/A, 12/06/2024). Family History: Patient's family history includes Diabetes in her mother; High Cholesterol in her mother; Hypertension in her mother; Lung Disease in her father; Stroke in her mother; Thyroid Disease in her maternalgrandmother. Social History: She reports that she does not currently use alcohol. She reports that she does not currently use drugs after having used the following drugs: Methamphetamines. She reports that she has been smoking cigarettes. She has never used smokeless tobacco. Allergies: Wellbutrin [bupropion] and Codeine Home Medications: (Not in a hospital admission) Review of Systems: 12 systems of ROS negative unless mentioned above in HPI Physical Exam: Estimated body mass index is 34.07 kg/m as calculated from the following: Height as of this encounter: 5' 2 (157.5 cm). Weight as of this encounter: 84.5 kg (186 lb 4.8 oz). Temp: 98.6 F (37 C) Pulse: 71 BP: 109/64 Respirations: 20 SpO2: 98 % Vitals noted and reviewed Constitutional: NAD. HENT: Head: Normocephalic and atraumatic. Eyes: Pupils are equal, round, and reactive to light. Conjunctivae are normal. Neck: Normal range of motion. Neck supple. Cardiovascular: Normal rate and regular rhythm. Pulmonary/Chest: Effort normal. No respiratory distress. Abdominal: Soft. Bowel sounds are normal. Abdominal distension, fluid wave positive. Tender in LLQ.There is no rebound and no guarding. Musculoskeletal: Normal range of motion. General: No edema. Neurological: No gross cranial nerve deficit. Skin: Skin is warm. No erythema. Psychiatric: normal mood and affect. Imaging: Imaging studies were personally reviewed and shows; No orders to display Labs: Lab Results Component Value Date WBC 5.4 12/10/2024 HGB 12.6 12/10/2024 HCT 36.1 12/10/2024 MCV 93.2 12/10/2024 Lab Results Component Value Date GLUCOSE 87 12/10/2024 CALCIUM 8.7 12/10/2024 CO2 20 (L) 12/10/2024 BUN 6 12/10/2024 CREATININE 1.0 12/10/2024 Lab Results Component Value Date INR 1.5 (H) 11/08/2024 INR 1.6 (H) 09/28/2024 PROTIME 17.9 (H) 11/08/2024 PROTIME 18.5 (H) 09/28/2024 Lab Results Component Value Date CALCIUM 8.7 12/10/2024 Lab Results Component Value Date AST 111 (H) 12/10/2024 Lab Results Component Value Date LIPASE 37 12/10/2024 Assessment / Plan: The patient is 49 y.o., female with aforementioned past medical and surgical history presented in ED with Abdominal pain, r/o SBP Back pain Cirrhosis with ascites Depression/Anxiety Thrombocytosis -start rocephin, f/u cultures, IR consult for paracentesis, GI consult -resume home meds -monitor platelets, chronically low, likely 2/2 cirrhosis DVT ppx: [] HSQ / Lovenox [] Coumadin [] NOAC [] Hep gtt [x] SCD [] Low risk, early ambulation Code status: [x] Full [] DNR I discussed all significant results as well as my impression and recommendations with the patient/family. I gave the patient opportunity to ask any questions and answered them to the best of my ability. Patient/Family expressed understanding and agreement with the plan. Electronically Signed By: Tommie New MD 12/10/2024 3:44 AM By signing this note, I attest that I have reviewed and, if necessary, edited the information contained in this note. [facility]03-17-2025 History and physical note* Tommie New MD - 12/10/2024 3:44 AM EDT Images from the original note were not included. HISTORY AND PHYSICAL Service: Hospital Medicine Author: Tommie New Patient Name: Carolina Hightower GORGE:[id number] 1975 PMD: Ange Espinoza DO Admission date: 12/10/2024 1:01 AM History of Present Illness: Patient is a 49 y.o. female with PMHx noted below, presenting via transfer from [facility] with c/o LLQ abdominal pain and lower back pain. She states the pain is bubbling and could not elaboratefurther, and it's been there for about a week, around the same time when she had her paracentesis on 12/06/24 at [facility]. Patient denies LANCE, fever, chill, nausea/vomiting, chest pain, shortness of breath, dizziness, palpitations, focal motor/sensory deficit, dysuria, or diarrhea. 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 Past Medical History: Patient has a past medical history of Ascites, Bipolar disorder, Chronic hepatitis C virus infection, Cirrhosis, and Kidney stone. Past Surgical History: Patient has a past surgical history that includes Hx Liver Biopsy; Hx Post Sterilization; Paracentesis (N/A, 07/02/2024); Ultrasound Guidance (N/A, 07/02/2024); Paracentesis (N/A, 07/09/2024); Ultrasound Guidance (N/A, 07/09/2024); Paracentesis (N/A, 07/19/2024); Ultrasound Guidance (N/A, 07/19); Paracentesis (N/A, 07/26/2024); Ultrasound Guidance (N/A, 07/26/2024); Paracentesis (N/A, 08/02/2024); Ultrasound Guidance (N/A, 08/02/2024); Paracentesis (N/A, 08/09/2024); Ultrasound Guidance(N/A, 08/09/2024); Paracentesis (N/A, 08/16/2024); Ultrasound Guidance (N/A, 08/16/2024); Paracentesis (N/A, 08/22/2024); Ultrasound Guidance (N/A, 08/22/2024); Paracentesis (N/A, 08/30/2024); Ultrasound Guidance (N/A, 08/30/2024); Paracentesis (N/A, 09/04/2024); Ultrasound Guidance (N/A, 09/04/2024); Hx EGJ (N/A, 09/07/2024); Hx EGJ (09/07/2024); Paracentesis (N/A, 09/13/2024); Ultrasound Guidance(N/A, 09/13/2024); Paracentesis (N/A, 09/20/2024); Ultrasound Guidance (N/A, 09/20/2024); Paracentesis (N/A, 09/27/2024); Ultrasound Guidance (N/A, 09/27/2024); Paracentesis (N/A, 10/03/2024); Ultrasound Guidance (N/A, 10/03/2024); Paracentesis (N/A, 10/18/2024); Ultrasound Guidance (N/A, 10/18/2024); Ultrasound Guidance (N/A, 10/30/2024); Paracentesis (N/A, 11/28/2024); Ultrasound Guidance (N/A, 11/28/2024); Paracentesis (N/A, 12/06/2024); and Ultrasound Guidance (N/A, 12/06/2024). Family History: Patient's family history includes Diabetes in her mother; High Cholesterol in her mother; Hypertension in her mother; Lung Disease in her father; Stroke in her mother; Thyroid Disease in her maternalgrandmother. Social History: She reports that she does not currently use alcohol. She reports that she does not currently use drugs after having used the following drugs: Methamphetamines. She reports that she has been smoking cigarettes. She has never used smokeless tobacco. Allergies: Wellbutrin [bupropion] and Codeine Home Medications: (Not in a hospital admission) Review of Systems: 12 systems of ROS negative unless mentioned above in HPI Physical Exam: Estimated body mass index is 34.07 kg/m as calculated from the following: Height as of this encounter: 5' 2 (157.5 cm). Weight as of this encounter: 84.5 kg (186 lb 4.8 oz). Temp: 98.6 F (37 C) Pulse: 71 BP: 109/64 Respirations: 20 SpO2: 98 % Vitals noted and reviewed Constitutional: NAD. HENT: Head: Normocephalic and atraumatic. Eyes: Pupils are equal, round, and reactive to light. Conjunctivae are normal. Neck: Normal range of motion. Neck supple. Cardiovascular: Normal rate and regular rhythm. Pulmonary/Chest: Effort normal. No respiratory distress. Abdominal: Soft. Bowel sounds are normal. Abdominal distension, fluid wave positive. Tender in LLQ.There is no rebound and no guarding. Musculoskeletal: Normal range of motion. General: No edema. Neurological: No gross cranial nerve deficit. Skin: Skin is warm. No erythema. Psychiatric: normal mood and affect. Imaging: Imaging studies were personally reviewed and shows; No orders to display Labs: Lab Results Component Value Date WBC 5.4 12/10/2024 HGB 12.6 12/10/2024 HCT 36.1 12/10/2024 MCV 93.2 12/10/2024 Lab Results Component Value Date GLUCOSE 87 12/10/2024 CALCIUM 8.7 12/10/2024 CO2 20 (L) 12/10/2024 BUN 6 12/10/2024 CREATININE 1.0 12/10/2024 Lab Results Component Value Date INR 1.5 (H) 11/08/2024 INR 1.6 (H) 09/28/2024 PROTIME 17.9 (H) 11/08/2024 PROTIME 18.5 (H) 09/28/2024 Lab Results Component Value Date CALCIUM 8.7 12/10/2024 Lab Results Component Value Date AST 111 (H) 12/10/2024 Lab Results Component Value Date LIPASE 37 12/10/2024 Assessment / Plan: The patient is 49 y.o., female with aforementioned past medical and surgical history presented in ED with Abdominal pain, r/o SBP Back pain Cirrhosis with ascites Depression/Anxiety Thrombocytosis -start rocephin, f/u cultures, IR consult for paracentesis, GI consult -resume home meds -monitor platelets, chronically low, likely 2/2 cirrhosis DVT ppx: [] HSQ / Lovenox [] Coumadin [] NOAC [] Hep gtt [x] SCD [] Low risk, early ambulation Code status: [x] Full [] DNR I discussed all significant results as well as my impression and recommendations with the patient/family. I gave the patient opportunity to ask any questions and answered them to the best of my ability. Patient/Family expressed understanding and agreement with the plan. Electronically Signed By: Tommie New MD 12/10/2024 3:44 AM By signing this note, I attest that I have reviewed and, if necessary, edited the information contained in this note. [facility] Emergency [facility] Note* Radha Bauer, RN - 12/10/2024 3:17 AM EDT Pt placed back on bp and sat monitors , pt wants pain meds , call into the provider at this time. Skin w/d pink a/ox4 no distress. [facility]-17[facility] Emergency department Triage note* Radha Bauer, RN - 12/10/2024 1:22 AM EDT Pt sent to ed by ems from [facility] for abd pain and back pain for 3-4 days, had paracentesis her thurs. Pt had normal labs and ct abd with contrast all neg at [facility] , upon arriavl to ed , skin w/d pink a/ox4 no distress, asking for pain meds , pain is 8 per pt . [facility]03-13-2025 NoteProcedure: Ultrasound-guided therapeutic paracentesis Indication: Alcoholic cirrhosis, portal hypertension with recurrent abdominal distention, abdominal discomfort and ascites Complication: None Description of the procedure: Written informed consent was obtained. She was placed in the supine position. Sonographic imaging was performed confirming ascites, image saved and stored in PACS. The abdomen was prepped and draped usual sterile fashion. 1% lidocaine without epinephrine local anesthetic. Dermatotomy was created with an 11 blade. Using sonographic guidance aseptic trocar technique 6.5 Swedish MERIT resolve drainage catheter was placed into the peritoneal cavity of the left lower quadrant followed by the removal of 500 mL yellow ascitic fluid. The catheter was removed, examined and found to be intact. No reported immediate complication or patient complaint. Impression: Technically successful ultrasound-guided paracentesis as above [facility] Hospital Discharge instructions* Discharge Instructions* Kiersten Victoria RN - 12/06/2024 9:45 AM EDT Drainage Procedure (Abscess, Paracentesis, Thoracentesis) Post Procedure Discharge Instructions What to expect after your procedure: You may experience some cramping, swelling or discomfort immediately after the procedure. These symptoms usually disappear in one or two days. Bruising may continue for 7-10 days. What you need to do: It is best to rest the site for the next 12 hours. You may continue your normal diet with any restrictions as prior to your procedure. You may resume your medications as prior to procedure. Inspect your site daily. Keep drainage site clean and dry. You may remove your dressing 48 hours (2 days). You may take your regular prescription medications as you usually do. You may continue your normal diet, the same as before your procedure. Continue any diet or fluid restriction as ordered by your physician. You will need to have someone to drive you home from the hospital upon discharge. What not to do: No heavy lifting or straining for 48 hours. Limit bathing for 48 hours or until dressing is removed. Do not apply lotions or ointment to site, unless instructed by your physician. When to contact your physician (the Physician who ordered the procedure): Any signs of infection, fever greater than 101.5, warmth to touch, drainage, redness or swelling a the site. If swelling or discomfort at site continues for more than 2 days after procedure. Excessive or abnormal bleeding. If bleeding occurs, apply pressure to site with fingertips for 10 - 15 minutes. If bleeding does not stop go to nearest Emergency Room. Any chest pain or shortness of breath, please go to nearest Emergency Room. New onset of generalized weakness. Nausea or vomiting. Notes: If this appointment needs to be cancelled or rescheduled please call the nurse at [phone]. If you have any questions or concerns about your procedure please call: [phone] or [phone]. These instructions have been explained to me. I understand their content and have received a copy. Sign: Witness: Thank you for choosing [facility] Vascular and Interventional Department documented in this [facility] History and physical note* Max Rico MD - 12/06/2024 9:40 AM EDT History and Physical for Interventional Radiology Name: Carolina Hightower : 1975 12/06/2024 HPI: ascites Past Medical History: Diagnosis Date Ascites Bipolar disorder Chronic hepatitis C virus infection Cirrhosis Kidney stone Current Facility-Administered Medications on File Prior to Encounter Medication Dose Route Frequency Provider Last Rate Last Admin [COMPLETED] lidocaine (preservative free) 20 mg/mL (2 %) injection ONE TIME PRN Minda Gómez MD 10 mL at 11/28/24 0976 Current Outpatient Medications on File Prior to Encounter Medication Sig Dispense Refill Benzonatate (TESSALON PERLES) 200 mg capsule Take 1 Capsule by mouth Three times a day. 30 Capsule 0 [] predniSONE (DELTASONE) 20 mg tablet Take 2 Tabs by mouth Once Daily for 3 days, THEN 1 Tablet Once Daily for 2 days, THEN 0.5 Tabs Once Daily for 2 days. 9 Tablet 0 [] nitrofurantoin, macrocrystal-mono, (MACROBID) 100 mg capsule Take 1 Capsule by mouth Twice a day for 5 days. Indications: inflammation of the bladder 10 Capsule 0 [] fluconazole (DIFLUCAN) 150 mg tablet Take 1 Tablet by mouth One time only for 1 dose. 1 Tablet 0 [] phenazopyridine (PYRIDIUM) 200 mg tablet Take 1 Tablet by mouth Three times a day for 2 days. 6 Tablet 0 ondansetron (ZOFRAN-ODT) 4 mg disintegrating tablet Take 1 Tablet by mouth Every 6 hours as needed.16 Tablet 0 [] doxycycline hyclate (VIBRA-TABS) 100 mg tablet Take 1 Tablet by mouth Twice a day for 7 days. 14 Tablet 0 Promethazine-DM (PROMETHAZINE-DM) 6.25-15 mg/5 mL syrup Take 5 mL by mouth EVERY 6 TO 8 HOURS PRN for Cough. 118 mL 0 pantoprazole (PROTONIX) [address] tablet Take 1 Tablet by mouth Once Daily for 90 days. 30 Tablet 2 traMADoL (ULTRAM) 50 mg tablet Take 1 Tablet by mouth Every 12 hours as needed. 6 Tablet 0 methocarbamoL (ROBAXIN) 500 mg tablet Take 1 Tablet by mouth Twice a day as needed. 20 Tablet 0 hydrOXYzine hcl (ATARAX) 25 mg tablet Take 25 mg by mouth Twice a day as needed for Itching. traZODone (DESYREL) 50 mg tablet Take 50 mg by mouth At bedtime. spironolactone 50 mg tablet Take 2 Tabs by mouth Once Daily for 360 days. 180 Tablet 3 lurasidone (LATUDA) 20 mg tablet Take 20 mg by mouth Once Daily. busPIRone (BUSPAR) 10 mg tablet Take 10 mg by mouth Three times a day. desvenlafaxine succinate (PRISTIQ) 50 mg tablet Take 50 mg by mouth Once Daily. Take 25mg daily gabapentin (NEURONTIN) 100 mg capsule Take 300 mg by mouth Twice a day. fluticasone propionate (FLONASE) 50 mcg/Actuation nasal spray Prather 50 mcg in each nostril Once Daily. One spray both nostrils daily ferrous sulfate 325 mg (65 mg iron) DR tablet Take 325 mg by mouth Once Daily. topiramate (TOPAMAX) 25 mg Take 25 mg by mouth Once Daily. naloxone (NARCAN) 4 mg/actuation nasal spray Prather 1 Prather in nose As directed for 1 dose. Call 911, Administer via Nasal every 3-5 min until patient becomes responsive. Repeat as many times as necessary for pt to become responsive. 2 Each 11 Patient's allergies: Allergies Allergen Reactions Wellbutrin [Bupropion] Other (See Comments) seizures Codeine Hives Physical Exam Abdomen distended A/P: ascites. Will proceed with requested paracentesis. Discussed the potential benefits, risks, and alternatives to the proposed procedure. Ms. Hightower is in agreement with the plan of care. Signed: Max Rico MD 12/06/2024 9:40 AM [facility] Work Phone: [phone] History and physical note* Max Rico MD - 12/06/2024 9:40 AM EDT History and Physical for Interventional Radiology Name: Carolina Hightower : 1975 12/06/2024 HPI: ascites Past Medical History: Diagnosis Date Ascites Bipolar disorder Chronic hepatitis C virus infection Cirrhosis Kidney stone Current Facility-Administered Medications on File Prior to Encounter Medication Dose Route Frequency Provider Last Rate Last Admin [COMPLETED] lidocaine (preservative free) 20 mg/mL (2 %) injection ONE TIME PRN Minda Gómez MD 10 mL at 11/28/24 0958 Current Outpatient Medications on File Prior to Encounter Medication Sig Dispense Refill Benzonatate (TESSALON PERLES) 200 mg capsule Take 1 Capsule by mouth Three times a day. 30 Capsule 0 [] predniSONE (DELTASONE) 20 mg tablet Take 2 Tabs by mouth Once Daily for 3 days, THEN 1 Tablet Once Daily for 2 days, THEN 0.5 Tabs Once Daily for 2 days. 9 Tablet 0 [] nitrofurantoin, macrocrystal-mono, (MACROBID) 100 mg capsule Take 1 Capsule by mouth Twice a day for 5 days. Indications: inflammation of the bladder 10 Capsule 0 [] fluconazole (DIFLUCAN) 150 mg tablet Take 1 Tablet by mouth One time only for 1 dose. 1 Tablet 0 [] phenazopyridine (PYRIDIUM) 200 mg tablet Take 1 Tablet by mouth Three times a day for 2 days. 6 Tablet 0 ondansetron (ZOFRAN-ODT) 4 mg disintegrating tablet Take 1 Tablet by mouth Every 6 hours as needed.16 Tablet 0 [] doxycycline hyclate (VIBRA-TABS) 100 mg tablet Take 1 Tablet by mouth Twice a day for 7 days. 14 Tablet 0 Promethazine-DM (PROMETHAZINE-DM) 6.25-15 mg/5 mL syrup Take 5 mL by mouth EVERY 6 TO 8 HOURS PRN for Cough. 118 mL 0 pantoprazole (PROTONIX) [address] tablet Take 1 Tablet by mouth Once Daily for 90 days. 30 Tablet 2 traMADoL (ULTRAM) 50 mg tablet Take 1 Tablet by mouth Every 12 hours as needed. 6 Tablet 0 methocarbamoL (ROBAXIN) 500 mg tablet Take 1 Tablet by mouth Twice a day as needed. 20 Tablet 0 hydrOXYzine hcl (ATARAX) 25 mg tablet Take 25 mg by mouth Twice a day as needed for Itching. traZODone (DESYREL) 50 mg tablet Take 50 mg by mouth At bedtime. spironolactone 50 mg tablet Take 2 Tabs by mouth Once Daily for 360 days. 180 Tablet 3 lurasidone (LATUDA) 20 mg tablet Take 20 mg by mouth Once Daily. busPIRone (BUSPAR) 10 mg tablet Take 10 mg by mouth Three times a day. desvenlafaxine succinate (PRISTIQ) 50 mg tablet Take 50 mg by mouth Once Daily. Take 25mg daily gabapentin (NEURONTIN) 100 mg capsule Take 300 mg by mouth Twice a day. fluticasone propionate (FLONASE) 50 mcg/Actuation nasal spray Prather 50 mcg in each nostril Once Daily. One spray both nostrils daily ferrous sulfate 325 mg (65 mg iron) DR tablet Take 325 mg by mouth Once Daily. topiramate (TOPAMAX) 25 mg Take 25 mg by mouth Once Daily. naloxone (NARCAN) 4 mg/actuation nasal spray Prather 1 Prather in nose As directed for 1 dose. Call 911, Administer via Nasal every 3-5 min until patient becomes responsive. Repeat as many times as necessary for pt to become responsive. 2 Each 11 Patient's allergies: Allergies Allergen Reactions Wellbutrin [Bupropion] Other (See Comments) seizures Codeine Hives Physical Exam Abdomen distended A/P: ascites. Will proceed with requested paracentesis. Discussed the potential benefits, risks, and alternatives to the proposed procedure. Ms. Hightower is in agreement with the plan of care. Signed: Max Rico MD 12/06/2024 9:40 AM [facility]25 History and physical note* Minda Gómez MD - 11/28/2024 9:55 AM EST History and Physical for Interventional Radiology Name: Carolina Hightower : 1975 11/28/2024 HPI: Liver cirrhosis with recurrent abdominal distention and symptomatic ascites. Past Medical History: Diagnosis Date Ascites Bipolar disorder Chronic hepatitis C virus infection Cirrhosis Kidney stone No current facility-administered medications on file prior to encounter. Current Outpatient Medications on File Prior to Encounter Medication Sig Dispense Refill Benzonatate (TESSALON PERLES) 200 mg capsule Take 1 Capsule by mouth Three times a day. 30 Capsule 0 [] predniSONE (DELTASONE) 20 mg tablet Take 2 Tabs by mouth Once Daily for 3 days, THEN 1 Tablet Once Daily for 2 days, THEN 0.5 Tabs Once Daily for 2 days. 9 Tablet 0 [] nitrofurantoin, macrocrystal-mono, (MACROBID) 100 mg capsule Take 1 Capsule by mouth Twice a day for 5 days. Indications: inflammation of the bladder 10 Capsule 0 [] fluconazole (DIFLUCAN) 150 mg tablet Take 1 Tablet by mouth One time only for 1 dose. 1 Tablet 0 [] phenazopyridine (PYRIDIUM) 200 mg tablet Take 1 Tablet by mouth Three times a day for 2 days. 6 Tablet 0 ondansetron (ZOFRAN-ODT) 4 mg disintegrating tablet Take 1 Tablet by mouth Every 6 hours as needed.16 Tablet 0 [] doxycycline hyclate (VIBRA-TABS) 100 mg tablet Take 1 Tablet by mouth Twice a day for 7 days. 14 Tablet 0 Promethazine-DM (PROMETHAZINE-DM) 6.25-15 mg/5 mL syrup Take 5 mL by mouth EVERY 6 TO 8 HOURS PRN for Cough. 118 mL 0 pantoprazole (PROTONIX) [address] tablet Take 1 Tablet by mouth Once Daily for 90 days. 30 Tablet 2 traMADoL (ULTRAM) 50 mg tablet Take 1 Tablet by mouth Every 12 hours as needed. 6 Tablet 0 lactulose (CHRONULAC) 10 gram/15 mL solution Take 45 mL by mouth Three times a day. 1000 mL 2 methocarbamoL (ROBAXIN) 500 mg tablet Take 1 Tablet by mouth Twice a day as needed. 20 Tablet 0 rifAXIMin (XIFAXAN) 550 mg tablet Take 1 Tablet by mouth Twice a day for 90 days. 60 Tablet 2 hydrOXYzine hcl (ATARAX) 25 mg tablet Take 25 mg by mouth Twice a day as needed for Itching. traZODone (DESYREL) 50 mg tablet Take 50 mg by mouth At bedtime. spironolactone 50 mg tablet Take 2 Tabs by mouth Once Daily for 360 days. 180 Tablet 3 furosemide (LASIX) 40 mg tablet Take 1 Tablet by mouth Once Daily. 30 Tablet 3 lurasidone (LATUDA) 20 mg tablet Take 20 mg by mouth Once Daily. busPIRone (BUSPAR) 10 mg tablet Take 10 mg by mouth Three times a day. desvenlafaxine succinate (PRISTIQ) 50 mg tablet Take 50 mg by mouth Once Daily. Take 25mg daily gabapentin (NEURONTIN) 100 mg capsule Take 300 mg by mouth Twice a day. fluticasone propionate (FLONASE) 50 mcg/Actuation nasal spray Prather 50 mcg in each nostril Once Daily. One spray both nostrils daily ferrous sulfate 325 mg (65 mg iron) DR tablet Take 325 mg by mouth Once Daily. topiramate (TOPAMAX) 25 mg Take 25 mg by mouth Once Daily. naloxone (NARCAN) 4 mg/actuation nasal spray Prather 1 Prather in nose As directed for 1 dose. Call 911, Administer via Nasal every 3-5 min until patient becomes responsive. Repeat as many times as necessary for pt to become responsive. 2 Each 11 Patient's allergies: Allergies Allergen Reactions Wellbutrin [Bupropion] Other (See Comments) seizures Codeine Hives Physical Exam Constitutional: Appearance: Normal appearance. HENT: Head: Normocephalic and atraumatic. Cardiovascular: Rate and Rhythm: Normal rate. Pulses: Normal pulses. Pulmonary: Effort: Pulmonary effort is normal. Abdominal: General: There is distension. Tenderness: There is no abdominal tenderness. There is no guarding. Musculoskeletal: General: Normal range of motion. Cervical back: Normal range of motion and neck supple. Skin: General: Skin is warm and dry. Neurological: Mental Status: She is alert. A/P: Will proceed with requested paracentesis. Discussed the potential benefits, risks, and alternatives to the proposed procedure. Ms. Hightower is in agreement with the plan of care. Signed: Minda Gómez M.D., MD 11/28/2024 10:01 AM [facility] Work Phone: [phone] History and physical note* Minda Gómez MD - 11/28/2024 9:55 AM EST History and Physical for Interventional Radiology Name: Carolina Hightower : 1975 11/28/2024 HPI: Liver cirrhosis with recurrent abdominal distention and symptomatic ascites. Past Medical History: Diagnosis Date Ascites Bipolar disorder Chronic hepatitis C virus infection Cirrhosis Kidney stone No current facility-administered medications on file prior to encounter. Current Outpatient Medications on File Prior to Encounter Medication Sig Dispense Refill Benzonatate (TESSALON PERLES) 200 mg capsule Take 1 Capsule by mouth Three times a day. 30 Capsule 0 [] predniSONE (DELTASONE) 20 mg tablet Take 2 Tabs by mouth Once Daily for 3 days, THEN 1 Tablet Once Daily for 2 days, THEN 0.5 Tabs Once Daily for 2 days. 9 Tablet 0 [] nitrofurantoin, macrocrystal-mono, (MACROBID) 100 mg capsule Take 1 Capsule by mouth Twice a day for 5 days. Indications: inflammation of the bladder 10 Capsule 0 [] fluconazole (DIFLUCAN) 150 mg tablet Take 1 Tablet by mouth One time only for 1 dose. 1 Tablet 0 [] phenazopyridine (PYRIDIUM) 200 mg tablet Take 1 Tablet by mouth Three times a day for 2 days. 6 Tablet 0 ondansetron (ZOFRAN-ODT) 4 mg disintegrating tablet Take 1 Tablet by mouth Every 6 hours as needed.16 Tablet 0 [] doxycycline hyclate (VIBRA-TABS) 100 mg tablet Take 1 Tablet by mouth Twice a day for 7 days. 14 Tablet 0 Promethazine-DM (PROMETHAZINE-DM) 6.25-15 mg/5 mL syrup Take 5 mL by mouth EVERY 6 TO 8 HOURS PRN for Cough. 118 mL 0 pantoprazole (PROTONIX) [address] tablet Take 1 Tablet by mouth Once Daily for 90 days. 30 Tablet 2 traMADoL (ULTRAM) 50 mg tablet Take 1 Tablet by mouth Every 12 hours as needed. 6 Tablet 0 lactulose (CHRONULAC) 10 gram/15 mL solution Take 45 mL by mouth Three times a day. 1000 mL 2 methocarbamoL (ROBAXIN) 500 mg tablet Take 1 Tablet by mouth Twice a day as needed. 20 Tablet 0 rifAXIMin (XIFAXAN) 550 mg tablet Take 1 Tablet by mouth Twice a day for 90 days. 60 Tablet 2 hydrOXYzine hcl (ATARAX) 25 mg tablet Take 25 mg by mouth Twice a day as needed for Itching. traZODone (DESYREL) 50 mg tablet Take 50 mg by mouth At bedtime. spironolactone 50 mg tablet Take 2 Tabs by mouth Once Daily for 360 days. 180 Tablet 3 furosemide (LASIX) 40 mg tablet Take 1 Tablet by mouth Once Daily. 30 Tablet 3 lurasidone (LATUDA) 20 mg tablet Take 20 mg by mouth Once Daily. busPIRone (BUSPAR) 10 mg tablet Take 10 mg by mouth Three times a day. desvenlafaxine succinate (PRISTIQ) 50 mg tablet Take 50 mg by mouth Once Daily. Take 25mg daily gabapentin (NEURONTIN) 100 mg capsule Take 300 mg by mouth Twice a day. fluticasone propionate (FLONASE) 50 mcg/Actuation nasal spray Prather 50 mcg in each nostril Once Daily. One spray both nostrils daily ferrous sulfate 325 mg (65 mg iron) DR tablet Take 325 mg by mouth Once Daily. topiramate (TOPAMAX) 25 mg Take 25 mg by mouth Once Daily. naloxone (NARCAN) 4 mg/actuation nasal spray Prather 1 Prather in nose As directed for 1 dose. Call 911, Administer via Nasal every 3-5 min until patient becomes responsive. Repeat as many times as necessary for pt to become responsive. 2 Each 11 Patient's allergies: Allergies Allergen Reactions Wellbutrin [Bupropion] Other (See Comments) seizures Codeine Hives Physical Exam Constitutional: Appearance: Normal appearance. HENT: Head: Normocephalic and atraumatic. Cardiovascular: Rate and Rhythm: Normal rate. Pulses: Normal pulses. Pulmonary: Effort: Pulmonary effort is normal. Abdominal: General: There is distension. Tenderness: There is no abdominal tenderness. There is no guarding. Musculoskeletal: General: Normal range of motion. Cervical back: Normal range of motion and neck supple. Skin: General: Skin is warm and dry. Neurological: Mental Status: She is alert. A/P: Will proceed with requested paracentesis. Discussed the potential benefits, risks, and alternatives to the proposed procedure. Ms. Hightower is in agreement with the plan of care. Signed: Minda Gómez M.D., MD 11/28/2024 10:01 AM documented in this encounterThe [facility] Center02-25-2025 Emergency department Note* Tresa Breaux RN - 11/20/2024 2:05 AM EST Pt paged to triage 2 with no response. [facility]* Tresa Breaux RN - 11/20/2024 2:05 AM EST Pt paged to triage 2 with no response. * Tresa Breaux RN - 11/20/2024 1:30 AM EST Pt paged to triage 2 with no response. * Tiffany Sue RN - 11/19/2024 8:52 PM EST Pt paged to triage2 with no response * Lambert Veliz DO - 11/19/2024 2:42 PM EST Carolina Hightower [[id number]] (F) - 49 y.o. Note Creation:11/20/2024 Encounter Date:11/19/2024 History Chief Complaint Patient presents with Shortness of Breath Patient is a 49 y.o. female with a hx of cirrhosis, hepatitis C, and bipolar disorder presents to the ED via PV complaining of shortness of breath. Patient reports associated cough and fatigue. Patient was diagnosed with influenza one week ago. Patient denies fever or emesis. Patient denies any other pertinent symptoms or concerns. Patient denies any other aggravating or alleviating factors. Pt denies any other pertinent PMHx. HPI Past Medical History: Diagnosis Date Ascites Bipolar disorder Chronic hepatitis C virus infection Cirrhosis Kidney stone Past Surgical History: Procedure Laterality Date HX EGJ N/A 09/07/2024 EGD /C BIOPSY performed by Katharina Welsh MD at [facility] HX EGJ 09/07/2024 EGD /C BAND LIGATION VARICES performed by Katharina Welsh MD at [facility] HX LIVER BIOPSY HX POST STERILIZATION PARACENTESIS N/A 07/02/2024 Paracentesis performed by Max Rico MD at [facility] PARACENTESIS N/A 07/09/2024 Paracentesis performed by Ginger Milton MD at [facility] PARACENTESIS N/A 07/19/2024 Paracentesis performed by Minda Gómez MD at [facility] PARACENTESIS N/A 07/26/2024 Paracentesis performed by Max Rico MD at [facility] PARACENTESIS N/A 08/02/2024 Paracentesis performed by Ginger Milton MD at [facility] PARACENTESIS N/A 08/09/2024 Paracentesis performed by Minda Gómez MD at [facility] PARACENTESIS N/A 08/16/2024 Paracentesis performed by Ginger Milton MD at [facility] PARACENTESIS N/A 08/22/2024 Paracentesis performed by Max Rico MD at [facility] PARACENTESIS N/A 08/30/2024 Paracentesis performed by Minda Gómez MD at [facility] PARACENTESIS N/A 09/04/2024 Paracentesis performed by Ginger Milton MD at [facility] PARACENTESIS N/A 09/13/2024 Paracentesis performed by Max Rico MD at [facility] PARACENTESIS N/A 09/20/2024 Paracentesis performed by Minda Gómez MD at [facility] PARACENTESIS N/A 09/27/2024 Paracentesis performed by Ginger Milton MD at [facility] PARACENTESIS N/A 10/03/2024 Paracentesis performed by Max Rico MD at [facility] PARACENTESIS N/A 10/18/2024 Paracentesis performed by Ginger Milton MD at [facility] ULTRASOUND GUIDANCE N/A 07/02/2024 Ultrasound Guidance performed by Max Rico MD at [facility] ULTRASOUND GUIDANCE N/A 07/09/2024 Ultrasound Guidance performed by Ginger Milton MD at [facility] ULTRASOUND GUIDANCE N/A 07/19/2024 Ultrasound Guidance performed by Minda Gómez MD at [facility] ULTRASOUND GUIDANCE N/A 07/26/2024 Ultrasound Guidance performed by Max Rico MD at [facility] ULTRASOUND GUIDANCE N/A 08/02/2024 Ultrasound Guidance performed by Ginger Milton MD at [facility] ULTRASOUND GUIDANCE N/A 08/09/2024 Ultrasound Guidance performed by Minda Gómez MD at [facility] ULTRASOUND GUIDANCE N/A 08/16/2024 Ultrasound Guidance performed by Ginger Milton MD at [facility] ULTRASOUND GUIDANCE N/A 08/22/2024 Ultrasound Guidance performed by Max Rico MD at [facility] ULTRASOUND GUIDANCE N/A 08/30/2024 Ultrasound Guidance performed by Minda Gómez MD at [facility] ULTRASOUND GUIDANCE N/A 09/04/2024 Ultrasound Guidance performed by Ginger Milton MD at [facility] ULTRASOUND GUIDANCE N/A 09/13/2024 Ultrasound Guidance performed by Max Rico MD at [facility] ULTRASOUND GUIDANCE N/A 09/20/2024 Ultrasound Guidance performed by Minda Gómez MD at [facility] ULTRASOUND GUIDANCE N/A 09/27/2024 Ultrasound Guidance performed by Ginger Milton MD at [facility] ULTRASOUND GUIDANCE N/A 10/03/2024 Ultrasound Guidance performed by Max Rico MD at [facility] ULTRASOUND GUIDANCE N/A 10/18/2024 Ultrasound Guidance performed by Ginger Milton MD at [facility] ULTRASOUND GUIDANCE N/A 10/30/2024 Ultrasound Guidance performed by Minda Gómez MD at [facility] Family History Problem Relation Name Age of Onset Stroke Mother High Cholesterol Mother Hypertension Mother Diabetes Mother Lung Disease Father Thyroid Disease Maternal Grandmother Social History Tobacco Use Smoking status: Every Day Current packs/day: 1.00 Types: Cigarettes Smokeless tobacco: Never Substance Use Topics Alcohol use: Not Currently Drug use: Not Currently Types: Methamphetamines Comment: new 2023 Patient is a tobacco user, and I have offered a counseling referral. No LMP recorded. Patient is postmenopausal. Allergies Allergen Reactions Wellbutrin [Bupropion] Other (See Comments) seizures Codeine Hives Current Outpatient Medications on File Prior to Encounter Medication Sig Benzonatate (TESSALON PERLES) 200 mg capsule Take 1 Capsule by mouth Three times a day. [] predniSONE (DELTASONE) 20 mg tablet Take 2 Tabs by mouth Once Daily for 3 days, THEN 1 Tablet Once Daily for 2 days, THEN 0.5 Tabs Once Daily for 2 days. [] nitrofurantoin, macrocrystal-mono, (MACROBID) 100 mg capsule Take 1 Capsule by mouth Twice a day for 5 days. Indications: inflammation of the bladder [] fluconazole (DIFLUCAN) 150 mg tablet Take 1 Tablet by mouth One time only for 1 dose. [] phenazopyridine (PYRIDIUM) 200 mg tablet Take 1 Tablet by mouth Three times a day for 2 days. ondansetron (ZOFRAN-ODT) 4 mg disintegrating tablet Take 1 Tablet by mouth Every 6 hours as needed. [] doxycycline hyclate (VIBRA-TABS) 100 mg tablet Take 1 Tablet by mouth Twice a day for 7 days. Promethazine-DM (PROMETHAZINE-DM) 6.25-15 mg/5 mL syrup Take 5 mL by mouth EVERY 6 TO 8 HOURS PRN for Cough. pantoprazole (PROTONIX) [address] tablet Take 1 Tablet by mouth Once Daily for 90 days. traMADoL (ULTRAM) 50 mg tablet Take 1 Tablet by mouth Every 12 hours as needed. lactulose (CHRONULAC) 10 gram/15 mL solution Take 45 mL by mouth Three times a day. methocarbamoL (ROBAXIN) 500 mg tablet Take 1 Tablet by mouth Twice a day as needed. rifAXIMin (XIFAXAN) 550 mg tablet Take 1 Tablet by mouth Twice a day for 90 days. hydrOXYzine hcl (ATARAX) 25 mg tablet Take 25 mg by mouth Twice a day as needed for Itching. traZODone (DESYREL) 50 mg tablet Take 50 mg by mouth At bedtime. spironolactone 50 mg tablet Take 2 Tabs by mouth Once Daily for 360 days. furosemide (LASIX) 40 mg tablet Take 1 Tablet by mouth Once Daily. lurasidone (LATUDA) 20 mg tablet Take 20 mg by mouth Once Daily. busPIRone (BUSPAR) 10 mg tablet Take 10 mg by mouth Three times a day. desvenlafaxine succinate (PRISTIQ) 50 mg tablet Take 50 mg by mouth Once Daily. Take 25mg daily gabapentin (NEURONTIN) 100 mg capsule Take 300 mg by mouth Twice a day. fluticasone propionate (FLONASE) 50 mcg/Actuation nasal spray Prather 50 mcg in each nostril Once Daily. One spray both nostrils daily ferrous sulfate 325 mg (65 mg iron) DR tablet Take 325 mg by mouth Once Daily. topiramate (TOPAMAX) 25 mg Take 25 mg by mouth Once Daily. naloxone (NARCAN) 4 mg/actuation nasal spray Prather 1 Prather in nose As directed for 1 dose. Call 911, Administer via Nasal every 3-5 min until patient becomes responsive. Repeat as many times as necessary for pt to become responsive. Review of Systems Review of Systems Constitutional: Positive for fatigue. Negative for activity change, appetite change, chills, fever and unexpected weight change. HENT: Negative for congestion, dental problem, ear discharge, ear pain, facial swelling, hearing loss, nosebleeds, postnasal drip, rhinorrhea, sinus pressure, sneezing, sore throat, tinnitus, troubleswallowing and voice change. Eyes: Negative for photophobia, pain, discharge, redness and itching. Respiratory: Positive for cough and shortness of breath. Negative for choking, chest tightness, wheezing and stridor. Cardiovascular: Negative for chest pain, palpitations and leg swelling. Gastrointestinal: Negative for abdominal pain, constipation, diarrhea, nausea, rectal pain and vomiting. Endocrine: Negative for cold intolerance, polydipsia, polyphagia and polyuria. Genitourinary: Negative for decreased urine volume, difficulty urinating, dysuria, flank pain, frequency, hematuria and urgency. Musculoskeletal: Negative for arthralgias, back pain, joint swelling and myalgias. Skin: Negative for pallor, rash and wound. Neurological: Negative for tremors, seizures, syncope, weakness, numbness and headaches. Hematological: Negative for adenopathy. Psychiatric/Behavioral: Negative for agitation, behavioral problems, confusion, hallucinations, self-injury, sleep disturbance and suicidal ideas. The patient is not nervous/anxious. Physical Exam ED Triage Vitals [11/19/24 1447] BP BP Manual or Automatic? Patient Position BP Location Heart Rate (Monitor) 117/70 Automatic Sitting Right Arm -- Pulse Pulse Source Respirations Temp Temp Source 70 -- 18 98.5 F (36.9 C) Oral SpO2 SPO2 Location O2 Delivery O2 Device O2 Flow Rate (l/min) 97 % Right Arm Room air -- -- FIO2 (%) Pain Intensity 1 Exacerbated By Relieved By Quality -- 8 -- -- -- Duration -- Physical Exam Vitals and nursing note reviewed. Constitutional: General: She is not in acute distress. Appearance: She is well-developed. She is not diaphoretic. HENT: Head: Normocephalic and atraumatic. Nose: Nose normal. Mouth/Throat: Pharynx: No oropharyngeal exudate. Eyes: General: No scleral icterus. Left eye: No discharge. Conjunctiva/sclera: Conjunctivae normal. Pupils: Pupils are equal, round, and reactive to light. Neck: Vascular: No JVD. Cardiovascular: Rate and Rhythm: Normal rate and regular rhythm. Heart sounds: Normal heart sounds. No murmur heard. No friction rub. No gallop. Pulmonary: Effort: Pulmonary effort is normal. No respiratory distress. Breath sounds: No stridor. Wheezing present. No rales. Chest: Chest wall: No tenderness. Abdominal: General: Bowel sounds are normal. There is no distension. Palpations: Abdomen is soft. Tenderness: There is no abdominal tenderness. There is no guarding or rebound. Musculoskeletal: General: No tenderness or deformity. Normal range of motion. Cervical back: Normal range of motion and neck supple. Skin: General: Skin is warm and dry. Coloration: Skin is not pale. Findings: No erythema or rash. Neurological: Mental Status: She is alert and oriented to person, place, and time. Cranial Nerves: No cranial nerve deficit. Psychiatric: Behavior: Behavior normal. Thought Content: Thought content normal. Judgment: Judgment normal. MDM Treatment: Procedures Medications methylprednisolone sod suc(PF) (Solu-MEDROL) injection 125 mg (has no administration in time range) ipratropium-albuteroL (DUO-NEB) 0.5 mg-3 mg(2.5 mg base)/3 mL neb soln 3 mL (has no administration in time range) ipratropium-albuteroL (DUO-NEB) 0.5 mg-3 mg(2.5 mg base)/3 mL neb soln 3 mL (has no administration in time range) Results for orders placed or performed during the hospital encounter of 11/19/24 Comprehensive Metabolic Panel Result Value Ref Range SODIUM 136 135 - 145 mmol/L POTASSIUM 4.1 3.6 - 5.0 mmol/L CHLORIDE 109 101 - 111 mmol/L CO2 24 21 - 31 mmol/L ANION GAP 3 GLUCOSE 112 (H) 70 - 110 mg/dL CREATININE 1.2 (H) 0.4 - 1.0 mg/dL BUN 19 2 - 32 mg/dL CALCIUM 7.9 (L) 8.5 - 10.5 mg/dL PROTEIN TOTAL 6.2 6.1 - 7.8 g/dL Albumin 3.0 (L) 3.2 - 5.0 g/dL T BILIRUBIN 1.8 (H) 0.2 - 1.0 mg/dL ALP 140 (H) 42 - 121 [iU]/L AST 68 (H) 10 - 42 [iU]/L ALT (SGPT) 48 10 - 60 [iU]/L OSMOLALITY 275 266 - 309 A/G Ratio 0.9 B/C 16 10 - 20 ESTIMATED GFR 47 mL/min CBC w/Differential Result Value Ref Range WBC 6.4 4.5 - 11.0 10*3/uL RBC 4.25 4.00 - 5.20 10*6/uL HGB 13.4 12.0 - 16.0 g/dL HCT 39.7 33.0 - 51.0 % MCV 93.5 80.0 - 100.0 fL MCHC 33.7 32.0 - 36.0 g/dL MCH 31.5 26.0 - 34.0 pg RDW 16.5 10.7 - 18.7 % MPV 9.1 6.5 - 10.0 fL Platelet Cnt 44 (LL) 150 - 450 10*3/uL Differential Type Auto Neutrophils 61.9 35.0 - 66.0 % Lymphocytes 22.1 (L) 24.0 - 44.0 % Monocytes 11.9 2.1 - 13.3 % Eosinophils 3.7 0.3 - 5.0 % Basophils 0.4 0.0 - 1.0 % Neutrophils Abs 3.9 1.5 - 8.5 10*3/uL Lymphocytes Abs 1.4 1.1 - 5.0 10*3/uL Monocytes Abs 0.8 0.0 - 1.4 10*3/uL Eosinophils Abs 0.2 0.0 - 0.5 10*3/uL Basophils Abs 0.0 0.0 - 0.1 10*3/uL MDW 20.4 (H) 0.0 - 20.0 Procalcitonin, QN, S Result Value Ref Range PROCALCITONIN, QN, S 0.14 ng/mL Results XR Chest PA And Lateral (Final result) Result time 11/19/24 15:13:19 Final result Narrative: [facility] [address] [place] [address] Radiology PATIENT NAME: Carolina Hightower MR#: [id number] PROCEDURE DATE: 11/19/2024 ROOM#: [id number] ORDERING PHYS: Lambert Veliz PROCEDURE: XR CHEST PA AND LATERAL CLINICAL INFORMATION: dyspnea COMPARISON: 09/01/2024 FINDINGS: The lungs are well expanded. There is no pneumothorax, pleural effusion, or regional airspace consolidation. The cardiomediastinal structures are normal in appearance. Bony thorax is intact. IMPRESSION: No evidence of acute cardiopulmonary abnormality. THIS IS AN ELECTRONICALLY VERIFIED REPORT 11/19/2024 3:10 PM: MD Terry Greene MD TD: 11/19/2024 JOB #: [id number] Radiology Page 1 of 1 COPY Plan: [facility]HECK: Discharge: The pt is awake, alert and well appearing at time of reevaluation. I spoke with the patient about her ED work up, diagnosis and any further treatment. I discussed the importance of following up with her PCP. I instructed her to return to the Emergency Room for new or worsening symptoms. All of the pt's questions were answered. The patient verbalized understanding. The patient is stable at time of discharge. Medical Decision Making DIFFERENTIAL DIAGNOSIS Differential Diagnosis: The following diagnoses were considered in the evaluation of this patient: COPD, CHF, bronchitis, pneumonia, infectious process, dehydration, metabolic abnormality, viral syndrome. Amount and/or Complexity of Data Reviewed Labs: ordered. Radiology: ordered and independent interpretation performed. Details: Final read by radiology. Risk Prescription drug management. Progress Note: ED Prescriptions None Final diagnoses: Viral syndrome ED Disposition ED Disposition Discharged Condition Stable Comment -- Discharge Instructions F/u w pcp Return for acute issues If worse symptoms then return for repeat exam Scribe Attestation: Silvia Mosqueda acting as scribe for and in the presence of Lambert Veliz DO Electronically Signed By Silvia Mosqueda 11/19/2024 2:44 PM Provider Attestation: I personally performed the services described in the documentation, reviewed the documentation recorded by the scribe in my presence and it accurately and completely records my words and actions. Electronically Signed By Lambert Veliz DO 11/20/2024 12:48 AM [facility] Emergency department Note* Tresa Breaux RN - 11/20/2024 1:30 AM EST Pt paged to triage 2 with no response. [facility] Note* Tiffany Sue RN - 11/19/2024 8:52 PM EST Pt paged to triage2 with no response [facility] Hospital Discharge instructions* Discharge Instructions* Lambert Veliz DO - 11/19/2024 8:11 PM EST F/u w pcp Return for acute issues If worse symptoms then return for repeat exam [facility] Note* Critical Test Results - Gricel Avila RN - 11/19/2024 4:04 PM EST Carolina Hightower Test Name: platlet Results: 44 11/19/2024 Time: 1604 Received from: alessandro R/V by: nash valentine (Required: Attempt notification within 30 minutes or document reason for no notification) Physician: gracie 11/19/2024 Time: 1604 Notified: Yes - No orders received [facility] Miscellaneous Notes* Critical Test Results - Gricel Avila RN - 11/19/2024 4:04 PM EST Carolina Hightower Test Name: platlet Results: 44 11/19/2024 Time: 1604 Received from: alessandro R/V by: nash valentine (Required: Attempt notification within 30 minutes or document reason for no notification) Physician: gracie 11/19/2024 Time: 1604 Notified: Yes - No orders received documented in [facility]25 Physician Emergency department Note* Gomez Velizolas, - 11/19/2024 2:42 PM EST Carolina Hightower [[id number]] (F) - 49 y.o. Note Creation:11/20/2024 Encounter Date:11/19/2024 History Chief Complaint Patient presents with Shortness of Breath Patient is a 49 y.o. female with a hx of cirrhosis, hepatitis C, and bipolar disorder presents to the ED via PV complaining of shortness of breath. Patient reports associated cough and fatigue. Patient was diagnosed with influenza one week ago. Patient denies fever or emesis. Patient denies any other pertinent symptoms or concerns. Patient denies any other aggravating or alleviating factors. Pt denies any other pertinent PMHx. HPI Past Medical History: Diagnosis Date Ascites Bipolar disorder Chronic hepatitis C virus infection Cirrhosis Kidney stone Past Surgical History: Procedure Laterality Date HX EGJ N/A 09/07/2024 EGD /C BIOPSY performed by Katharina Welsh MD at [facility] HX EGJ 09/07/2024 EGD /C BAND LIGATION VARICES performed by Katharina Welsh MD at [facility] HX LIVER BIOPSY HX POST STERILIZATION PARACENTESIS N/A 07/02/2024 Paracentesis performed by Max Rico MD at [facility] PARACENTESIS N/A 07/09/2024 Paracentesis performed by Ginger Milton MD at [facility] PARACENTESIS N/A 07/19/2024 Paracentesis performed by Minda Gómez MD at [facility] PARACENTESIS N/A 07/26/2024 Paracentesis performed by Max Rico MD at [facility] PARACENTESIS N/A 08/02/2024 Paracentesis performed by Ginger Milton MD at [facility] PARACENTESIS N/A 08/09/2024 Paracentesis performed by Minda Gómez MD at [facility] PARACENTESIS N/A 08/16/2024 Paracentesis performed by Ginger Milton MD at [facility] PARACENTESIS N/A 08/22/2024 Paracentesis performed by Max Rico MD at [facility] PARACENTESIS N/A 08/30/2024 Paracentesis performed by Minda Gómez MD at [facility] PARACENTESIS N/A 09/04/2024 Paracentesis performed by Ginger Milton MD at [facility] PARACENTESIS N/A 09/13/2024 Paracentesis performed by Max Rico MD at [facility] PARACENTESIS N/A 09/20/2024 Paracentesis performed by Minda Gómez MD at [facility] PARACENTESIS N/A 09/27/2024 Paracentesis performed by Ginger Milton MD at [facility] PARACENTESIS N/A 10/03/2024 Paracentesis performed by Max Rico MD at [facility] PARACENTESIS N/A 10/18/2024 Paracentesis performed by Ginger Milton MD at [facility] ULTRASOUND GUIDANCE N/A 07/02/2024 Ultrasound Guidance performed by Max Rico MD at [facility] ULTRASOUND GUIDANCE N/A 07/09/2024 Ultrasound Guidance performed by Ginger Milton MD at [facility] ULTRASOUND GUIDANCE N/A 07/19/2024 Ultrasound Guidance performed by Minda Gómez MD at [facility] ULTRASOUND GUIDANCE N/A 07/26/2024 Ultrasound Guidance performed by Max Rico MD at [facility] ULTRASOUND GUIDANCE N/A 08/02/2024 Ultrasound Guidance performed by Ginger Milton MD at [facility] ULTRASOUND GUIDANCE N/A 08/09/2024 Ultrasound Guidance performed by Minda Gómez MD at [facility] ULTRASOUND GUIDANCE N/A 08/16/2024 Ultrasound Guidance performed by Ginger Milton MD at [facility] ULTRASOUND GUIDANCE N/A 08/22/2024 Ultrasound Guidance performed by Max Rico MD at [facility] ULTRASOUND GUIDANCE N/A 08/30/2024 Ultrasound Guidance performed by Minda Gómez MD at [facility] ULTRASOUND GUIDANCE N/A 09/04/2024 Ultrasound Guidance performed by Ginger Milton MD at [facility] ULTRASOUND GUIDANCE N/A 09/13/2024 Ultrasound Guidance performed by Max Rico MD at [facility] ULTRASOUND GUIDANCE N/A 09/20/2024 Ultrasound Guidance performed by Minda Gómez MD at [facility] ULTRASOUND GUIDANCE N/A 09/27/2024 Ultrasound Guidance performed by Ginger Milton MD at [facility] ULTRASOUND GUIDANCE N/A 10/03/2024 Ultrasound Guidance performed by Max Rico MD at [facility] ULTRASOUND GUIDANCE N/A 10/18/2024 Ultrasound Guidance performed by Ginger Milton MD at [facility] ULTRASOUND GUIDANCE N/A 10/30/2024 Ultrasound Guidance performed by Minda Gómez MD at [facility] Family History Problem Relation Name Age of Onset Stroke Mother High Cholesterol Mother Hypertension Mother Diabetes Mother Lung Disease Father Thyroid Disease Maternal Grandmother Social History Tobacco Use Smoking status: Every Day Current packs/day: 1.00 Types: Cigarettes Smokeless tobacco: Never Substance Use Topics Alcohol use: Not Currently Drug use: Not Currently Types: Methamphetamines Comment: new 2023 Patient is a tobacco user, and I have offered a counseling referral. No LMP recorded. Patient is postmenopausal. Allergies Allergen Reactions Wellbutrin [Bupropion] Other (See Comments) seizures Codeine Hives Current Outpatient Medications on File Prior to Encounter Medication Sig Benzonatate (TESSALON PERLES) 200 mg capsule Take 1 Capsule by mouth Three times a day. [] predniSONE (DELTASONE) 20 mg tablet Take 2 Tabs by mouth Once Daily for 3 days, THEN 1 Tablet Once Daily for 2 days, THEN 0.5 Tabs Once Daily for 2 days. [] nitrofurantoin, macrocrystal-mono, (MACROBID) 100 mg capsule Take 1 Capsule by mouth Twice a day for 5 days. Indications: inflammation of the bladder [] fluconazole (DIFLUCAN) 150 mg tablet Take 1 Tablet by mouth One time only for 1 dose. [] phenazopyridine (PYRIDIUM) 200 mg tablet Take 1 Tablet by mouth Three times a day for 2 days. ondansetron (ZOFRAN-ODT) 4 mg disintegrating tablet Take 1 Tablet by mouth Every 6 hours as needed. [] doxycycline hyclate (VIBRA-TABS) 100 mg tablet Take 1 Tablet by mouth Twice a day for 7 days. Promethazine-DM (PROMETHAZINE-DM) 6.25-15 mg/5 mL syrup Take 5 mL by mouth EVERY 6 TO 8 HOURS PRN for Cough. pantoprazole (PROTONIX) [address] tablet Take 1 Tablet by mouth Once Daily for 90 days. traMADoL (ULTRAM) 50 mg tablet Take 1 Tablet by mouth Every 12 hours as needed. lactulose (CHRONULAC) 10 gram/15 mL solution Take 45 mL by mouth Three times a day. methocarbamoL (ROBAXIN) 500 mg tablet Take 1 Tablet by mouth Twice a day as needed. rifAXIMin (XIFAXAN) 550 mg tablet Take 1 Tablet by mouth Twice a day for 90 days. hydrOXYzine hcl (ATARAX) 25 mg tablet Take 25 mg by mouth Twice a day as needed for Itching. traZODone (DESYREL) 50 mg tablet Take 50 mg by mouth At bedtime. spironolactone 50 mg tablet Take 2 Tabs by mouth Once Daily for 360 days. furosemide (LASIX) 40 mg tablet Take 1 Tablet by mouth Once Daily. lurasidone (LATUDA) 20 mg tablet Take 20 mg by mouth Once Daily. busPIRone (BUSPAR) 10 mg tablet Take 10 mg by mouth Three times a day. desvenlafaxine succinate (PRISTIQ) 50 mg tablet Take 50 mg by mouth Once Daily. Take 25mg daily gabapentin (NEURONTIN) 100 mg capsule Take 300 mg by mouth Twice a day. fluticasone propionate (FLONASE) 50 mcg/Actuation nasal spray Prather 50 mcg in each nostril Once Daily. One spray both nostrils daily ferrous sulfate 325 mg (65 mg iron) DR tablet Take 325 mg by mouth Once Daily. topiramate (TOPAMAX) 25 mg Take 25 mg by mouth Once Daily. naloxone (NARCAN) 4 mg/actuation nasal spray Prather 1 Prather in nose As directed for 1 dose. Call 911, Administer via Nasal every 3-5 min until patient becomes responsive. Repeat as many times as necessary for pt to become responsive. Review of Systems Review of Systems Constitutional: Positive for fatigue. Negative for activity change, appetite change, chills, fever and unexpected weight change. HENT: Negative for congestion, dental problem, ear discharge, ear pain, facial swelling, hearing loss, nosebleeds, postnasal drip, rhinorrhea, sinus pressure, sneezing, sore throat, tinnitus, troubleswallowing and voice change. Eyes: Negative for photophobia, pain, discharge, redness and itching. Respiratory: Positive for cough and shortness of breath. Negative for choking, chest tightness, wheezing and stridor. Cardiovascular: Negative for chest pain, palpitations and leg swelling. Gastrointestinal: Negative for abdominal pain, constipation, diarrhea, nausea, rectal pain and vomiting. Endocrine: Negative for cold intolerance, polydipsia, polyphagia and polyuria. Genitourinary: Negative for decreased urine volume, difficulty urinating, dysuria, flank pain, frequency, hematuria and urgency. Musculoskeletal: Negative for arthralgias, back pain, joint swelling and myalgias. Skin: Negative for pallor, rash and wound. Neurological: Negative for tremors, seizures, syncope, weakness, numbness and headaches. Hematological: Negative for adenopathy. Psychiatric/Behavioral: Negative for agitation, behavioral problems, confusion, hallucinations, self-injury, sleep disturbance and suicidal ideas. The patient is not nervous/anxious. Physical Exam ED Triage Vitals [11/19/24 1447] BP BP Manual or Automatic? Patient Position BP Location Heart Rate (Monitor) 117/70 Automatic Sitting Right Arm -- Pulse Pulse Source Respirations Temp Temp Source 70 -- 18 98.5 F (36.9 C) Oral SpO2 SPO2 Location O2 Delivery O2 Device O2 Flow Rate (l/min) 97 % Right Arm Room air -- -- FIO2 (%) Pain Intensity 1 Exacerbated By Relieved By Quality -- 8 -- -- -- Duration -- Physical Exam Vitals and nursing note reviewed. Constitutional: General: She is not in acute distress. Appearance: She is well-developed. She is not diaphoretic. HENT: Head: Normocephalic and atraumatic. Nose: Nose normal. Mouth/Throat: Pharynx: No oropharyngeal exudate. Eyes: General: No scleral icterus. Left eye: No discharge. Conjunctiva/sclera: Conjunctivae normal. Pupils: Pupils are equal, round, and reactive to light. Neck: Vascular: No JVD. Cardiovascular: Rate and Rhythm: Normal rate and regular rhythm. Heart sounds: Normal heart sounds. No murmur heard. No friction rub. No gallop. Pulmonary: Effort: Pulmonary effort is normal. No respiratory distress. Breath sounds: No stridor. Wheezing present. No rales. Chest: Chest wall: No tenderness. Abdominal: General: Bowel sounds are normal. There is no distension. Palpations: Abdomen is soft. Tenderness: There is no abdominal tenderness. There is no guarding or rebound. Musculoskeletal: General: No tenderness or deformity. Normal range of motion. Cervical back: Normal range of motion and neck supple. Skin: General: Skin is warm and dry. Coloration: Skin is not pale. Findings: No erythema or rash. Neurological: Mental Status: She is alert and oriented to person, place, and time. Cranial Nerves: No cranial nerve deficit. Psychiatric: Behavior: Behavior normal. Thought Content: Thought content normal. Judgment: Judgment normal. MDM Treatment: Procedures Medications methylprednisolone sod suc(PF) (Solu-MEDROL) injection 125 mg (has no administration in time range) ipratropium-albuteroL (DUO-NEB) 0.5 mg-3 mg(2.5 mg base)/3 mL neb soln 3 mL (has no administration in time range) ipratropium-albuteroL (DUO-NEB) 0.5 mg-3 mg(2.5 mg base)/3 mL neb soln 3 mL (has no administration in time range) Results for orders placed or performed during the hospital encounter of 11/19/24 Comprehensive Metabolic Panel Result Value Ref Range SODIUM 136 135 - 145 mmol/L POTASSIUM 4.1 3.6 - 5.0 mmol/L CHLORIDE 109 101 - 111 mmol/L CO2 24 21 - 31 mmol/L ANION GAP 3 GLUCOSE 112 (H) 70 - 110 mg/dL CREATININE 1.2 (H) 0.4 - 1.0 mg/dL BUN 19 2 - 32 mg/dL CALCIUM 7.9 (L) 8.5 - 10.5 mg/dL PROTEIN TOTAL 6.2 6.1 - 7.8 g/dL Albumin 3.0 (L) 3.2 - 5.0 g/dL T BILIRUBIN 1.8 (H) 0.2 - 1.0 mg/dL ALP 140 (H) 42 - 121 [iU]/L AST 68 (H) 10 - 42 [iU]/L ALT (SGPT) 48 10 - 60 [iU]/L OSMOLALITY 275 266 - 309 A/G Ratio 0.9 B/C 16 10 - 20 ESTIMATED GFR 47 mL/min CBC w/Differential Result Value Ref Range WBC 6.4 4.5 - 11.0 10*3/uL RBC 4.25 4.00 - 5.20 10*6/uL HGB 13.4 12.0 - 16.0 g/dL HCT 39.7 33.0 - 51.0 % MCV 93.5 80.0 - 100.0 fL MCHC 33.7 32.0 - 36.0 g/dL MCH 31.5 26.0 - 34.0 pg RDW 16.5 10.7 - 18.7 % MPV 9.1 6.5 - 10.0 fL Platelet Cnt 44 (LL) 150 - 450 10*3/uL Differential Type Auto Neutrophils 61.9 35.0 - 66.0 % Lymphocytes 22.1 (L) 24.0 - 44.0 % Monocytes 11.9 2.1 - 13.3 % Eosinophils 3.7 0.3 - 5.0 % Basophils 0.4 0.0 - 1.0 % Neutrophils Abs 3.9 1.5 - 8.5 10*3/uL Lymphocytes Abs 1.4 1.1 - 5.0 10*3/uL Monocytes Abs 0.8 0.0 - 1.4 10*3/uL Eosinophils Abs 0.2 0.0 - 0.5 10*3/uL Basophils Abs 0.0 0.0 - 0.1 10*3/uL MDW 20.4 (H) 0.0 - 20.0 Procalcitonin, QN, S Result Value Ref Range PROCALCITONIN, QN, S 0.14 ng/mL Results XR Chest PA And Lateral (Final result) Result time 11/19/24 15:13:19 Final result Narrative: [facility] [address] [place] [address] Radiology PATIENT NAME: Carolina Hightower MR#: [id number] PROCEDURE DATE: 11/19/2024 ROOM#: LTX ORDERING PHYS: Lambert Veliz PROCEDURE: XR CHEST PA AND LATERAL CLINICAL INFORMATION: dyspnea COMPARISON: 09/01/2024 FINDINGS: The lungs are well expanded. There is no pneumothorax, pleural effusion, or regional airspace consolidation. The cardiomediastinal structures are normal in appearance. Bony thorax is intact. IMPRESSION: No evidence of acute cardiopulmonary abnormality. THIS IS AN ELECTRONICALLY VERIFIED REPORT 11/19/2024 3:10 PM: MD Teryr Greene MD gs TD: 11/19/2024 JOB #: [id number] Radiology Page 1 of 1 COPY Plan: [facility] RECHECK: Discharge: The pt is awake, alert and well appearing at time of reevaluation. I spoke with the patient about her ED work up, diagnosis and any further treatment. I discussed the importance of following up with her PCP. I instructed her to return to the Emergency Room for new or worsening symptoms. All of the pt's questions were answered. The patient verbalized understanding. The patient is stable at time of discharge. Medical Decision Making DIFFERENTIAL DIAGNOSIS Differential Diagnosis: The following diagnoses were considered in the evaluation of this patient: COPD, CHF, bronchitis, pneumonia, infectious process, dehydration, metabolic abnormality, viral syndrome. Amount and/or Complexity of Data Reviewed Labs: ordered. Radiology: ordered and independent interpretation performed. Details: Final read by radiology. Risk Prescription drug management. Progress Note: ED Prescriptions None Final diagnoses: Viral syndrome ED Disposition ED Disposition Discharged Condition Stable Comment -- Discharge Instructions F/u w pcp Return for acute issues If worse symptoms then return for repeat exam Scribe Attestation: Silvia Mosqueda acting as scribe for and in the presence of Lambert Veliz DO Electronically Signed By Silvia Mosqueda 11/19/2024 2:44 PM Provider Attestation: I personally performed the services described in the documentation, reviewed the documentation recorded by the scribe in my presence and it accurately and completely records my words and actions. Electronically Signed By Lambert Veliz DO 11/20/2024 12:48 AM [facility]-04[facility] History and physical note* Minda Gómez MD - 10/30/2024 7:48 AM EST History and Physical for Interventional Radiology Name: Carolina Hightower : 1975 10/30/2024 HPI: Liver cirrhosis with recurrent abdominal distention and symptomatic ascites. Past Medical History: Diagnosis Date Ascites Bipolar disorder (CMS/HCC) Chronic hepatitis C virus infection (CMS/HCC) Cirrhosis (CMS/HCC) Kidney stone Current Facility-Administered Medications on File Prior to Encounter Medication Dose Route Frequency Provider Last Rate Last Admin [COMPLETED] lidocaine (preservative free) 20 mg/mL (2 %) injection ONE TIME PRN Ginger Milton MD 10 mL at 10/18/24 1349 [COMPLETED] ibuprofen (MOTRIN) tab 600 mg 600 mg Oral ONE TIME Pete Ponce MD 600 mg at 10/04/24 0822 [COMPLETED] lidocaine (preservative free) 10 mg/mL (1 %) injection ONE TIME PRN Max Rico MD 10 mL at 10/03/24 0958 Current Outpatient Medications on File Prior to Encounter Medication Sig Dispense Refill [] phytonadione, vitamin K1, (MEPHYTON) 5 mg Take 2 Tabs by mouth One time only for 1 dose. 2 Tablet 0 traMADoL (ULTRAM) 50 mg tablet Take 1 Tablet by mouth Every 12 hours as needed. 6 Tablet 0 lactulose (CHRONULAC) 10 gram/15 mL solution Take 45 mL by mouth Three times a day. 1000 mL 2 methocarbamoL (ROBAXIN) 500 mg tablet Take 1 Tablet by mouth Twice a day as needed. 20 Tablet 0 rifAXIMin (XIFAXAN) 550 mg tablet Take 1 Tablet by mouth Twice a day for 90 days. 60 Tablet 2 hydrOXYzine hcl (ATARAX) 25 mg tablet Take 25 mg by mouth Twice a day as needed for Itching. traZODone (DESYREL) 50 mg tablet Take 50 mg by mouth At bedtime. spironolactone 50 mg tablet Take 2 Tabs by mouth Once Daily for 360 days. 180 Tablet 3 furosemide (LASIX) 40 mg tablet Take 1 Tablet by mouth Once Daily. 30 Tablet 3 [] pantoprazole (PROTONIX) [address] tablet Take 1 Tablet by mouth Once Daily for 90 days. 30Tablet 2 lurasidone (LATUDA) 20 mg tablet Take 20 mg by mouth Once Daily. busPIRone (BUSPAR) 10 mg tablet Take 10 mg by mouth Three times a day. desvenlafaxine succinate (PRISTIQ) 50 mg tablet Take 50 mg by mouth Once Daily. Take 25mg daily gabapentin (NEURONTIN) 100 mg capsule Take 100 mg by mouth Twice a day. fluticasone propionate (FLONASE) 50 mcg/Actuation nasal spray Prather 50 mcg in each nostril Once Daily. One spray both nostrils daily ferrous sulfate 325 mg (65 mg iron) DR tablet Take 325 mg by mouth Once Daily. topiramate (TOPAMAX) 25 mg Take 25 mg by mouth Once Daily. naloxone (NARCAN) 4 mg/actuation nasal spray Prather 1 Prather in nose As directed for 1 dose. Call 911, Administer via Nasal every 3-5 min until patient becomes responsive. Repeat as many times as necessary for pt to become responsive. 2 Each 11 Patient's allergies: Allergies Allergen Reactions Wellbutrin [Bupropion] Other (See Comments) seizures Codeine Hives Physical Exam Constitutional: Appearance: Normal appearance. HENT: Head: Normocephalic and atraumatic. Cardiovascular: Rate and Rhythm: Normal rate. Pulses: Normal pulses. Pulmonary: Effort: Pulmonary effort is normal. Abdominal: General: There is distension. Tenderness: There is no abdominal tenderness. There is no guarding. Musculoskeletal: General: Normal range of motion. Cervical back: Normal range of motion and neck supple. Skin: General: Skin is warm and dry. Neurological: Mental Status: She is alert. A/P: Will proceed with requested paracentesis. Discussed the potential benefits, risks, and alternatives to the proposed procedure. Ms. Hightower is in agreement with the plan of care. Signed: Minda Gómez M.D., MD 10/30/2024 7:48 AM [facility] Work Phone: [phone] 740-234502-04-2025 History and physical note* Minda Gómez MD - 10/30/2024 7:48 AM EST History and Physical for Interventional Radiology Name: Carolina Hightower : 1975 10/30/2024 HPI: Liver cirrhosis with recurrent abdominal distention and symptomatic ascites. Past Medical History: Diagnosis Date Ascites Bipolar disorder (CMS/HCC) Chronic hepatitis C virus infection (CMS/HCC) Cirrhosis (CMS/HCC) Kidney stone Current Facility-Administered Medications on File Prior to Encounter Medication Dose Route Frequency Provider Last Rate Last Admin [COMPLETED] lidocaine (preservative free) 20 mg/mL (2 %) injection ONE TIME PRN Ginger Milton MD 10 mL at 10/18/24 1349 [COMPLETED] ibuprofen (MOTRIN) tab 600 mg 600 mg Oral ONE TIME Pete Ponce MD 600 mg at 10/04/24 0822 [COMPLETED] lidocaine (preservative free) 10 mg/mL (1 %) injection ONE TIME PRN Max Rico MD 10 mL at 10/03/24 0958 Current Outpatient Medications on File Prior to Encounter Medication Sig Dispense Refill [] phytonadione, vitamin K1, (MEPHYTON) 5 mg Take 2 Tabs by mouth One time only for 1 dose. 2 Tablet 0 traMADoL (ULTRAM) 50 mg tablet Take 1 Tablet by mouth Every 12 hours as needed. 6 Tablet 0 lactulose (CHRONULAC) 10 gram/15 mL solution Take 45 mL by mouth Three times a day. 1000 mL 2 methocarbamoL (ROBAXIN) 500 mg tablet Take 1 Tablet by mouth Twice a day as needed. 20 Tablet 0 rifAXIMin (XIFAXAN) 550 mg tablet Take 1 Tablet by mouth Twice a day for 90 days. 60 Tablet 2 hydrOXYzine hcl (ATARAX) 25 mg tablet Take 25 mg by mouth Twice a day as needed for Itching. traZODone (DESYREL) 50 mg tablet Take 50 mg by mouth At bedtime. spironolactone 50 mg tablet Take 2 Tabs by mouth Once Daily for 360 days. 180 Tablet 3 furosemide (LASIX) 40 mg tablet Take 1 Tablet by mouth Once Daily. 30 Tablet 3 [] pantoprazole (PROTONIX) [address] tablet Take 1 Tablet by mouth Once Daily for 90 days. 30Tablet 2 lurasidone (LATUDA) 20 mg tablet Take 20 mg by mouth Once Daily. busPIRone (BUSPAR) 10 mg tablet Take 10 mg by mouth Three times a day. desvenlafaxine succinate (PRISTIQ) 50 mg tablet Take 50 mg by mouth Once Daily. Take 25mg daily gabapentin (NEURONTIN) 100 mg capsule Take 100 mg by mouth Twice a day. fluticasone propionate (FLONASE) 50 mcg/Actuation nasal spray Prather 50 mcg in each nostril Once Daily. One spray both nostrils daily ferrous sulfate 325 mg (65 mg iron) DR tablet Take 325 mg by mouth Once Daily. topiramate (TOPAMAX) 25 mg Take 25 mg by mouth Once Daily. naloxone (NARCAN) 4 mg/actuation nasal spray Prather 1 Prather in nose As directed for 1 dose. Call 911, Administer via Nasal every 3-5 min until patient becomes responsive. Repeat as many times as necessary for pt to become responsive. 2 Each 11 Patient's allergies: Allergies Allergen Reactions Wellbutrin [Bupropion] Other (See Comments) seizures Codeine Hives Physical Exam Constitutional: Appearance: Normal appearance. HENT: Head: Normocephalic and atraumatic. Cardiovascular: Rate and Rhythm: Normal rate. Pulses: Normal pulses. Pulmonary: Effort: Pulmonary effort is normal. Abdominal: General: There is distension. Tenderness: There is no abdominal tenderness. There is no guarding. Musculoskeletal: General: Normal range of motion. Cervical back: Normal range of motion and neck supple. Skin: General: Skin is warm and dry. Neurological: Mental Status: She is alert. A/P: Will proceed with requested paracentesis. Discussed the potential benefits, risks, and alternatives to the proposed procedure. Ms. Hightower is in agreement with the plan of care. Signed: Minda Gómez M.D., MD 10/30/2024 7:48 AM documented in this [facility]01-23-2025 Hospital Discharge instructions* Discharge Instructions* Tiffany Lovett RN - 10/18/2024 12:03 PM EST Images from the original note were not included. Paracentesis WHAT YOU NEED TO KNOW: Paracentesis is a procedure to remove abnormal fluid buildup in your abdomen. Fluid builds up because of liver problems, such as swelling and scarring. Heart failure, kidney disease, a mass, or problems with your pancreas may also cause fluid buildup. DISCHARGE INSTRUCTIONS: Seek care immediately if: You have sudden, sharp pain in your abdomen. You urinate very little or not at all. You feel confused and more tired than usual. Your arm or leg feels warm, tender, and painful. It may look swollen and red. You suddenly feel lightheaded and have trouble breathing. You have chest pain. You may have more pain when you take a deep breath or cough. You may cough up blood. Call your doctor if: You have a fever and your wound is red and swollen. You have yellow, green, or bad-smelling discharge coming from your wound. You have pain or swelling in your abdomen. You have nausea or are vomiting. Your legs and ankles are swollen. You have questions or concerns about your condition or care. Medicines: Diuretics remove extra fluid and prevent new fluid buildup. You may urinate more often when you take this medicine. Take your medicine as directed. Contact your healthcare provider if you think your medicine is not helping or if you have side effects. Tell your provider if you are allergic to any medicine. Keep a list of the medicines, vitamins, and herbs you take. Include the amounts, and when and why you take them. Bring the list or the pill bottles to follow-up visits. Carry your medicine list with you in case of an emergency. Do not drink alcohol: Alcohol can interact with the medicine you take after your paracentesis. Wound care: Ask your healthcare provider when you can remove your bandage, and how to care for yourwound. Eat low-sodium (salt) foods: Sodium causes fluid to build up. Limit your sodium intake to 2 grams each day. Do not add salt to your food. Try to cook your own food instead of eating fast food or processed food. Read the labels on your food to see how much sodium they contain. Return to your normal activities: Ask your healthcare provider which activities are safe for you todo. You may need to build up to your normal activity level slowly. Follow up with your doctor as directed: Write down your questions so you remember to ask them during your visits. Copyright [employer] 2023 Information is for End User's use only and may not be sold, redistributed or otherwise used for commercial purposes. The above information is an medicaid business analyst only. It is not intended as medical advice for individual conditions or treatments. Talk to your doctor, nurse or pharmacist before following any medical regimen to see if it is safe and effective for you. documented in this [facility]01-20-2025 Telephone encounter Note* Telephone Encounter - Kaylin Rhodes - 10/15/2024 3:49 PM EST LM we need to cancel her 10/24 appt due to her insurance being OON and they denied her coming here. [facility]01-20-2025 Miscellaneous Notes* Telephone Encounter - Kaylin Rhodes - 10/15/2024 3:49 PM EST LM we need to cancel her 10/24 appt due to her insurance being OON and they denied her coming here. [facility] encounter Note * Telephone Encounter - Kaylin Rhodes - 10/10/2024 11:31 AM EST Called pt to notify her we received a denial from [facility] regarding her visit here on 10/24, so we need to cancel appt, LM to call me back [facility]01-15-2025 Miscellaneous Notes* Telephone Encounter - Kaylin Rhodes - 10/10/2024 11:31 AM EST Called pt to notify her we received a denial from [facility] regarding her visit here on 10/24, so we need to cancel appt, LM to call me back [facility] Discharge instructions* Discharge Instructions* Pete Ponce MD - 10/04/2024 11:02 AM EST Follow up with your doctor next week for a re exam and future paracentesis with interventional radiology as needed for an out patient paracentesis. * Attachments The following attachments cannot be sent through Care Everywhere. * Cirrhosis of the Liver (AfterCare(R) Instructions(ER/ED)) (Ghanaian) [facility]* Critical Test Results - Jacky Fernandez, NASH - 10/04/2024 8:36 AM EST Carolina Hightower Test Name: PLATELETS Results: 43 10/04/2024 Time: 836 Received from: JESSI R/V by: JACKY (Required: Attempt notification within 30 minutes or document reason for no notification) Physician: DEZ 10/04/2024 Time: 836 Notified: Yes - No orders received [facility] Miscellaneous Notes* Critical Test Results - Jacky Fernandez RN - 10/04/2024 8:36 AM EST Carolina Hightower Test Name: PLATELETS Results: 43 10/04/2024 Time: 836 Received from: JESSI R/V by: JACKY (Required: Attempt notification within 30 minutes or document reason for no notification) Physician: DZE 10/04/2024 Time: 836 Notified: Yes - No orders received [facility] Emergency department Note* Hi Lara, NASH - 10/04/2024 8:17 AM EST Patient arrives to ed with complaint of abd pain. Patient states generalized abd pain. States hx ofliver disease. States she is rehab. Denies no other complaints. Patient is oneill x3, resp e/u, skin pwd. Nsoad. [facility] Emergency [facility] Note* Hi Lara RN - 10/04/2024 8:17 AM EST Patient arrives to ed with complaint of abd pain. Patient states generalized abd pain. States hx ofliver disease. States she is rehab. Denies no other complaints. Patient is oneill x3, resp e/u, skin pwd. Nsoad. [facility] Note Procedure: Ultrasound guided therapeutic paracentesis Indication: Cirrhosis with ascites, abdominal distention and discomfort Complication: None immediate Description of the procedure: Written informed consent was obtained. She was placed in the supine position. The abdomen was prepped and draped in the usual sterile fashion. 1% lidocaine without epinephrine was used as a local anesthetic. A dermatotomy was created with an 11 blade. Under direct sonographic guidance using aseptic technique a 6.5 Swedish merit resolve drainage catheter was placed into the peritoneal cavity of the right lower quadrant followed by the removal 1800 ml yellow ascitic fluid. The fluid was discarded. The catheter was removed, examined and found to be intact. The dermatotomy was covered with sterile 4 x 4 and Tegaderm dressing. There were no immediate complications or patient complaints. Impression: Technically successful ultrasound-guided therapeutic paracentesis as above. [facility] Discharge instructions* Discharge Instructions* Luci Victoria RN - 10/03/2024 9:51 AM EST Drainage Procedure Paracentesis Post Procedure Discharge Instructions What to expect after your procedure: You may experience some cramping, swelling or discomfort immediately after the procedure. These symptoms usually disappear in one or two days. Bruising may continue for 7-10 days. What you need to do: It is best to rest the site for the next 12 hours. You may continue your normal diet with any restrictions as prior to your procedure. You may resume your medications as prior to procedure. Inspect your site daily. Keep drainage site clean and dry. You may remove your dressing 48 hours (2 days). You may take your regular prescription medications as you usually do. You may continue your normal diet, the same as before your procedure. Continue any diet or fluid restriction as ordered by your physician. You will need to have someone to drive you home from the hospital upon discharge. What not to do: No heavy lifting or straining for 48 hours. Limit bathing for 48 hours or until dressing is removed. Do not apply lotions or ointment to site, unless instructed by your physician. When to contact your physician (the Physician who ordered the procedure): Any signs of infection, fever greater than 101.5, warmth to touch, drainage, redness or swelling a the site. If swelling or discomfort at site continues for more than 2 days after procedure. Excessive or abnormal bleeding. If bleeding occurs, apply pressure to site with fingertips for 10 - 15 minutes. If bleeding does not stop go to nearest Emergency Room. Any chest pain or shortness of breath, please go to nearest Emergency Room. New onset of generalized weakness. Nausea or vomiting. Notes: Your follow up appointment has been made for Oct 10 at 12 noon If this appointment needs to be cancelled or rescheduled please call the nurse at [phone]. If you have any questions or concerns about your procedure please call: [phone] or [phone]. These instructions have been explained to me. I understand their content and have received a copy. Sign: Witness: Thank you for choosing [facility] Vascular and Interventional Department documented in [facility] History and physical note* Max Rico MD - 10/03/2024 9:21 AM EST History and Physical for Interventional Radiology Name: Carolina Hightower : 1975 10/03/2024 HPI: Ascites ascites Past Medical History: Diagnosis Date Ascites Bipolar disorder (CMS/HCC) Chronic hepatitis C virus infection (CMS/HCC) Cirrhosis (CMS/HCC) Kidney stone Current Facility-Administered Medications on File Prior to Encounter Medication Dose Route Frequency Provider Last Rate Last Admin [COMPLETED] lidocaine (preservative free) 10 mg/mL (1 %) injection ONE TIME PRN Ginger Milton MD 10 mL at 09/27/24 1007 [COMPLETED] lidocaine (preservative free) 20 mg/mL (2 %) injection ONE TIME PRN Minda Gómez MD 10 mL at 09/20/24 1021 [COMPLETED] lidocaine (preservative free) 10 mg/mL (1 %) injection ONE TIME PRN Max Rico MD 10 mL at 09/13/24 1423 [COMPLETED] amoxicillin-pot clavulanate (AUGMENTIN) tab 875 mg 875 mg Oral BID Vanesa Hartman MD 875 mg at 09/09/24 0833 [COMPLETED] magnesium sulfate in water (2g/50mL premix) piggyback (PREMIX) 2 g 2 g Intravenous ONE TIME Raul Burch MD 25 mL/hr at 09/04/24 0359 2 g at 09/04/24 0359 [] LIDOCAINE (PF) 20 MG/ML (2 %) INJECTION SOLUTION (Pyxis override) [COMPLETED] lidocaine (preservative free) 20 mg/mL (2 %) injection ONE TIME PRN Ginger Milton MD 10 mL at 09/04/24 1527 [] traMADoL (ULTRAM) tab 50 mg 50 mg Oral Q12H PRN Katharina Welsh MD 50 mg at 09/08/24 0423 [] oxyCODONE (ROXICODONE) immediate release tab 5 mg 5 mg Oral Q6H PRN Katharina Welsh MD5 mg at 09/09/24 0925 Current Outpatient Medications on File Prior to Encounter Medication Sig Dispense Refill traMADoL (ULTRAM) 50 mg tablet Take 1 Tablet by mouth Every 12 hours as needed. 6 Tablet 0 lactulose (CHRONULAC) 10 gram/15 mL solution Take 45 mL by mouth Three times a day. 1000 mL 2 methocarbamoL (ROBAXIN) 500 mg tablet Take 1 Tablet by mouth Twice a day as needed. 20 Tablet 0 rifAXIMin (XIFAXAN) 550 mg tablet Take 1 Tablet by mouth Twice a day for 90 days. 60 Tablet 2 hydrOXYzine hcl (ATARAX) 25 mg tablet Take 25 mg by mouth Twice a day as needed for Itching. traZODone (DESYREL) 50 mg tablet Take 50 mg by mouth At bedtime. spironolactone 50 mg tablet Take 2 Tabs by mouth Once Daily for 360 days. 180 Tablet 3 furosemide (LASIX) 40 mg tablet Take 1 Tablet by mouth Once Daily. 30 Tablet 3 pantoprazole (PROTONIX) [address] tablet Take 1 Tablet by mouth Once Daily for 90 days. 30 Tablet 2 lurasidone (LATUDA) 20 mg tablet Take 20 mg by mouth Once Daily. busPIRone (BUSPAR) 10 mg tablet Take 10 mg by mouth Three times a day. desvenlafaxine succinate (PRISTIQ) 50 mg tablet Take 50 mg by mouth Once Daily. Take 25mg daily gabapentin (NEURONTIN) 100 mg capsule Take 100 mg by mouth Twice a day. fluticasone propionate (FLONASE) 50 mcg/Actuation nasal spray Prather 50 mcg in each nostril Once Daily. One spray both nostrils daily ferrous sulfate 325 mg (65 mg iron) DR tablet Take 325 mg by mouth Once Daily. topiramate (TOPAMAX) 25 mg Take 25 mg by mouth Once Daily. naloxone (NARCAN) 4 mg/actuation nasal spray Prather 1 Prather in nose As directed for 1 dose. Call 911, Administer via Nasal every 3-5 min until patient becomes responsive. Repeat as many times as necessary for pt to become responsive. 2 Each 11 Patient's allergies: Allergies Allergen Reactions Wellbutrin [Bupropion] Other (See Comments) seizures Codeine Hives Physical Exam aox3 A/P: Ascites. Will proceed with requested paracentesis. Discussed the potential benefits, risks, and alternatives to the proposed procedure. Ms. Hightower is in agreement with the plan of care. Signed: Max Rico MD 10/03/2024 9:21 AM [facility] Work Phone: [phone] History and physical note* Max Rico MD - 10/03/2024 9:21 AM EST History and Physical for Interventional Radiology Name: Carolina Hightower : 1975 10/03/2024 HPI: Ascites ascites Past Medical History: Diagnosis Date Ascites Bipolar disorder (CMS/HCC) Chronic hepatitis C virus infection (CMS/HCC) Cirrhosis (CMS/HCC) Kidney stone Current Facility-Administered Medications on File Prior to Encounter Medication Dose Route Frequency Provider Last Rate Last Admin [COMPLETED] lidocaine (preservative free) 10 mg/mL (1 %) injection ONE TIME PRN Ginger Milton MD 10 mL at 09/27/24 1007 [COMPLETED] lidocaine (preservative free) 20 mg/mL (2 %) injection ONE TIME PRN Minda Gómez MD 10 mL at 09/20/24 1021 [COMPLETED] lidocaine (preservative free) 10 mg/mL (1 %) injection ONE TIME PRN Max Rico MD 10 mL at 09/13/24 1423 [COMPLETED] amoxicillin-pot clavulanate (AUGMENTIN) tab 875 mg 875 mg Oral BID Vanesa Hartman MD 875 mg at 09/09/24 0833 [COMPLETED] magnesium sulfate in water (2g/50mL premix) piggyback (PREMIX) 2 g 2 g Intravenous ONE TIME Raul Burch MD 25 mL/hr at 09/04/24 0359 2 g at 09/04/24 0359 [] LIDOCAINE (PF) 20 MG/ML (2 %) INJECTION SOLUTION (Pyxis override) [COMPLETED] lidocaine (preservative free) 20 mg/mL (2 %) injection ONE TIME PRN Ginger Milton MD 10 mL at 09/04/24 1527 [] traMADoL (ULTRAM) tab 50 mg 50 mg Oral Q12H PRN Katharina Welsh MD 50 mg at 09/08/24 0423 [] oxyCODONE (ROXICODONE) immediate release tab 5 mg 5 mg Oral Q6H PRN Katharina Welsh MD5 mg at 09/09/24 0925 Current Outpatient Medications on File Prior to Encounter Medication Sig Dispense Refill traMADoL (ULTRAM) 50 mg tablet Take 1 Tablet by mouth Every 12 hours as needed. 6 Tablet 0 lactulose (CHRONULAC) 10 gram/15 mL solution Take 45 mL by mouth Three times a day. 1000 mL 2 methocarbamoL (ROBAXIN) 500 mg tablet Take 1 Tablet by mouth Twice a day as needed. 20 Tablet 0 rifAXIMin (XIFAXAN) 550 mg tablet Take 1 Tablet by mouth Twice a day for 90 days. 60 Tablet 2 hydrOXYzine hcl (ATARAX) 25 mg tablet Take 25 mg by mouth Twice a day as needed for Itching. traZODone (DESYREL) 50 mg tablet Take 50 mg by mouth At bedtime. spironolactone 50 mg tablet Take 2 Tabs by mouth Once Daily for 360 days. 180 Tablet 3 furosemide (LASIX) 40 mg tablet Take 1 Tablet by mouth Once Daily. 30 Tablet 3 pantoprazole (PROTONIX) [address] tablet Take 1 Tablet by mouth Once Daily for 90 days. 30 Tablet 2 lurasidone (LATUDA) 20 mg tablet Take 20 mg by mouth Once Daily. busPIRone (BUSPAR) 10 mg tablet Take 10 mg by mouth Three times a day. desvenlafaxine succinate (PRISTIQ) 50 mg tablet Take 50 mg by mouth Once Daily. Take 25mg daily gabapentin (NEURONTIN) 100 mg capsule Take 100 mg by mouth Twice a day. fluticasone propionate (FLONASE) 50 mcg/Actuation nasal spray Prather 50 mcg in each nostril Once Daily. One spray both nostrils daily ferrous sulfate 325 mg (65 mg iron) DR tablet Take 325 mg by mouth Once Daily. topiramate (TOPAMAX) 25 mg Take 25 mg by mouth Once Daily. naloxone (NARCAN) 4 mg/actuation nasal spray Prather 1 Prather in nose As directed for 1 dose. Call 911, Administer via Nasal every 3-5 min until patient becomes responsive. Repeat as many times as necessary for pt to become responsive. 2 Each 11 Patient's allergies: Allergies Allergen Reactions Wellbutrin [Bupropion] Other (See Comments) seizures Codeine Hives Physical Exam aox3 A/P: Ascites. Will proceed with requested paracentesis. Discussed the potential benefits, risks, and alternatives to the proposed procedure. Ms. Hightower is in agreement with the plan of care. Signed: Max Rico MD 10/03/2024 9:21 AM documented in this [facility]01-03-2025 Emergency department Note* Lambert, Carolina, RN - 09/28/2024 1:39 PM EST Patient to ed for cc of feeling tired. Patient caox3, skin pwd, respirations even and unlabored. Dc instructions reviewed with patient. Verbalize understanding. Patient to ed lobby no acute distress noted [facility] Emergency department Note* Carolina Tolentino RN - 09/28/2024 1:39 PM EST Patient to ed for cc of feeling tired. Patient caox3, skin pwd, respirations even and unlabored. Dc instructions reviewed with patient. Verbalize understanding. Patient to ed lobby no acute distress noted * Pete Ponce MD - 09/28/2024 12:31 PM EST Carolina Hightower [[id number]] (F) - 48 y.o. Note Creation:09/28/2024 Encounter Date:09/28/2024 History Chief Complaint Patient presents with General Illness Carolina Hightower is a 48 year old female with hx of Hep C Cirrhosis who presents to the ED from [facility] for evaluation of fatigue and generalized weakness recently. She is on Lactulose and Xifaxin. Compliant with medications. No fever, chest pain or abdominal pain. She is followed by Dr. Welsh. She also complained of her blood sugar dropping this morning. She ate multiple cookies to bring it back up. Said that she felt shaky. The pt denies any other pertinent symptoms or concerns. The pt denies any other aggravating or alleviating factors. The pt denies any other pertinent PMHx. The history is provided by the patient and medical records. Past Medical History: Diagnosis Date Ascites Bipolar disorder (CMS/HCC) Chronic hepatitis C virus infection (CMS/HCC) Cirrhosis (CMS/HCC) Kidney stone Past Surgical History: Procedure Laterality Date HX EGJ N/A 09/07/2024 EGD /C BIOPSY performed by Katharina Welsh MD at [facility] HX EGJ 09/07/2024 EGD /C BAND LIGATION VARICES performed by Katharina Welsh MD at [facility] HX LIVER BIOPSY HX POST STERILIZATION PARACENTESIS N/A 07/02/2024 Paracentesis performed by Max Rico MD at [facility] PARACENTESIS N/A 07/09/2024 Paracentesis performed by Ginger Milton MD at [facility] PARACENTESIS N/A 07/19/2024 Paracentesis performed by Minda Gómez MD at [facility] PARACENTESIS N/A 07/26/2024 Paracentesis performed by Max Rico MD at [facility] PARACENTESIS N/A 08/02/2024 Paracentesis performed by Ginger Milton MD at [facility] PARACENTESIS N/A 08/09/2024 Paracentesis performed by Minda Gómez MD at [facility] PARACENTESIS N/A 08/16/2024 Paracentesis performed by Ginger Milton MD at [facility] PARACENTESIS N/A 08/22/2024 Paracentesis performed by Max Rico MD at [facility] PARACENTESIS N/A 08/30/2024 Paracentesis performed by Minda Gómez MD at [facility] PARACENTESIS N/A 09/04/2024 Paracentesis performed by Ginger Milton MD at [facility] PARACENTESIS N/A 09/13/2024 Paracentesis performed by Max Rico MD at [facility] PARACENTESIS N/A 09/20/2024 Paracentesis performed by Minda Gómez MD at [facility] PARACENTESIS N/A 09/27/2024 Paracentesis performed by Ginger Milton MD at [facility] ULTRASOUND GUIDANCE N/A 07/02/2024 Ultrasound Guidance performed by Max Rico MD at [facility] ULTRASOUND GUIDANCE N/A 07/09/2024 Ultrasound Guidance performed by Ginger Milton MD at [facility] ULTRASOUND GUIDANCE N/A 07/19/2024 Ultrasound Guidance performed by Minda Gómez MD at [facility] ULTRASOUND GUIDANCE N/A 07/26/2024 Ultrasound Guidance performed by Max Rico MD at [facility] ULTRASOUND GUIDANCE N/A 08/02/2024 Ultrasound Guidance performed by Ginger Milton MD at [facility] ULTRASOUND GUIDANCE N/A 08/09/2024 Ultrasound Guidance performed by Minda Gómez MD at [facility] ULTRASOUND GUIDANCE N/A 08/16/2024 Ultrasound Guidance performed by Ginger Milton MD at [facility] ULTRASOUND GUIDANCE N/A 08/22/2024 Ultrasound Guidance performed by Max Rico MD at [facility] ULTRASOUND GUIDANCE N/A 08/30/2024 Ultrasound Guidance performed by Minda Gómez MD at [facility] ULTRASOUND GUIDANCE N/A 09/04/2024 Ultrasound Guidance performed by Ginger Milton MD at [facility] ULTRASOUND GUIDANCE N/A 09/13/2024 Ultrasound Guidance performed by Max Rico MD at [facility] ULTRASOUND GUIDANCE N/A 09/20/2024 Ultrasound Guidance performed by Minda Gómez MD at [facility] ULTRASOUND GUIDANCE N/A 09/27/2024 Ultrasound Guidance performed by Ginger Milton MD at [facility] Family History Problem Relation Name Age of Onset Stroke Mother High Cholesterol Mother Hypertension Mother Diabetes Mother Lung Disease Father Thyroid Disease Maternal Grandmother Social History Tobacco Use Smoking status: Every Day Current packs/day: 1.00 Types: Cigarettes Smokeless tobacco: Never Substance Use Topics Alcohol use: Not Currently Drug use: Not Currently Types: Methamphetamines Comment: new 2023 Patient is a tobacco user, and I have offered a counseling referral. No LMP recorded. Patient is postmenopausal. Allergies Allergen Reactions Wellbutrin [Bupropion] Other (See Comments) seizures Codeine Hives Current Outpatient Medications on File Prior to Encounter Medication Sig traMADoL (ULTRAM) 50 mg tablet Take 1 Tablet by mouth Every 12 hours as needed. lactulose (CHRONULAC) 10 gram/15 mL solution Take 45 mL by mouth Three times a day. methocarbamoL (ROBAXIN) 500 mg tablet Take 1 Tablet by mouth Twice a day as needed. rifAXIMin (XIFAXAN) 550 mg tablet Take 1 Tablet by mouth Twice a day for 90 days. hydrOXYzine hcl (ATARAX) 25 mg tablet Take 25 mg by mouth Twice a day as needed for Itching. traZODone (DESYREL) 50 mg tablet Take 50 mg by mouth At bedtime. spironolactone 50 mg tablet Take 2 Tabs by mouth Once Daily for 360 days. furosemide (LASIX) 40 mg tablet Take 1 Tablet by mouth Once Daily. pantoprazole (PROTONIX) [address] tablet Take 1 Tablet by mouth Once Daily for 90 days. lurasidone (LATUDA) 20 mg tablet Take 20 mg by mouth Once Daily. busPIRone (BUSPAR) 10 mg tablet Take 10 mg by mouth Three times a day. desvenlafaxine succinate (PRISTIQ) 50 mg tablet Take 50 mg by mouth Once Daily. Take 25mg daily gabapentin (NEURONTIN) 100 mg capsule Take 100 mg by mouth Twice a day. fluticasone propionate (FLONASE) 50 mcg/Actuation nasal spray Prather 50 mcg in each nostril Once Daily. One spray both nostrils daily ferrous sulfate 325 mg (65 mg iron) DR tablet Take 325 mg by mouth Once Daily. topiramate (TOPAMAX) 25 mg Take 25 mg by mouth Once Daily. naloxone (NARCAN) 4 mg/actuation nasal spray Prather 1 Prather in nose As directed for 1 dose. Call 911, Administer via Nasal every 3-5 min until patient becomes responsive. Repeat as many times as necessary for pt to become responsive. Review of Systems Review of Systems Constitutional: Positive for fatigue. Negative for appetite change and fever. HENT: Negative for facial swelling. Eyes: Negative for discharge. Respiratory: Negative for cough, shortness of breath and wheezing. Cardiovascular: Negative for chest pain. Gastrointestinal: Positive for abdominal distention. Negative for abdominal pain. Endocrine: Negative for cold intolerance. Genitourinary: Negative for flank pain. Musculoskeletal: Negative for joint swelling. Skin: Positive for pallor. Negative for rash. Allergic/Immunologic: Positive for immunocompromised state. Neurological: Positive for weakness. Negative for syncope. Generalized Hematological: Negative for adenopathy. Psychiatric/Behavioral: Negative for confusion. All other systems reviewed and are negative. Physical Exam ED Triage Vitals [09/28/24 1048] BP BP Manual or Automatic? Patient Position BP Location Heart Rate (Monitor) 118/58 Automatic Sitting Right Arm -- Pulse Pulse Source Respirations Temp Temp Source 65 Brachial 18 98.2 F (36.8 C) Oral SpO2 SPO2 Location O2 Delivery O2 Device O2 Flow Rate (l/min) 100 % Right Arm Room air -- -- FIO2 (%) Pain Intensity 1 Exacerbated By Relieved By Quality -- 6 -- -- -- Duration -- Physical Exam Vitals and nursing note reviewed. Constitutional: General: She is not in acute distress. Appearance: She is well-developed. She is ill-appearing. She is not toxic- appearing or diaphoretic. Comments: PLEASANT [place]. HENT: Head: Normocephalic and atraumatic. Right Ear: External ear normal. Left Ear: External ear normal. Nose: No congestion or rhinorrhea. Mouth/Throat: Pharynx: No oropharyngeal exudate. Eyes: General: No scleral icterus. Right eye: No discharge. Left eye: No discharge. Extraocular Movements: Extraocular movements intact. Pupils: Pupils are equal, round, and reactive to light. Neck: Vascular: No JVD. Cardiovascular: Rate and Rhythm: Normal rate and regular rhythm. Heart sounds: Normal heart sounds. No murmur heard. Pulmonary: Effort: Pulmonary effort is normal. No respiratory distress. Breath sounds: Normal breath sounds. No stridor. No wheezing or rales. Abdominal: General: There is distension. Palpations: Abdomen is soft. Tenderness: There is no abdominal tenderness. There is no right CVA tenderness, left CVA tenderness, guarding or rebound. Comments: MILD ABDOMINAL DISTENTION. Musculoskeletal: General: No swelling, tenderness, deformity or signs of injury. Normal range of motion. Cervical back: Normal range of motion and neck supple. No rigidity or tenderness. No muscular tenderness. Right lower leg: No edema. Left lower leg: No edema. Lymphadenopathy: Cervical: No cervical adenopathy. Skin: General: Skin is warm and dry. Capillary Refill: Capillary refill takes less than 2 seconds. Coloration: Skin is pale. Skin is not jaundiced. Findings: No bruising, erythema, lesion or rash. Neurological: General: No focal deficit present. Mental Status: She is alert and oriented to person, place, and time. Mental status is at baseline. Sensory: No sensory deficit. Motor: No weakness. Psychiatric: Mood and Affect: Mood normal. Behavior: Behavior normal. MDM Treatment: Procedures Medications - No data to display Results for orders placed or performed during the hospital encounter of 09/28/24 CBC w/Differential Result Value Ref Range WBC 5.1 4.5 - 11.0 10*3/uL RBC 3.91 (L) 4.00 - 5.20 10*6/uL HGB 12.7 12.0 - 16.0 g/dL HCT 38.1 33.0 - 51.0 % MCV 97.5 80.0 - 100.0 fL MCHC 33.4 32.0 - 36.0 g/dL MCH 32.5 26.0 - 34.0 pg RDW 16.5 10.7 - 18.7 % MPV 9.2 6.5 - 10.0 fL Platelet Cnt 42 (LL) 150 - 450 10*3/uL Differential Type Auto Neutrophils 73.6 (H) 35.0 - 66.0 % Lymphocytes 13.8 (L) 24.0 - 44.0 % Monocytes 8.5 2.1 - 13.3 % Eosinophils 3.7 0.3 - 5.0 % Basophils 0.5 0.0 - 1.0 % Neutrophils Abs 3.8 1.5 - 8.5 10*3/uL Lymphocytes Abs 0.7 (L) 1.1 - 5.0 10*3/uL Monocytes Abs 0.4 0.0 - 1.4 10*3/uL Eosinophils Abs 0.2 0.0 - 0.5 10*3/uL Basophils Abs 0.0 0.0 - 0.1 10*3/uL Comprehensive Metabolic Panel Result Value Ref Range SODIUM 134 (L) 135 - 145 mmol/L POTASSIUM 3.6 3.6 - 5.0 mmol/L CHLORIDE 104 101 - 111 mmol/L CO2 24 21 - 31 mmol/L ANION GAP 6 GLUCOSE 155 (H) 70 - 110 mg/dL CREATININE 1.0 0.4 - 1.0 mg/dL BUN 9 2 - 32 mg/dL CALCIUM 8.8 8.5 - 10.5 mg/dL PROTEIN TOTAL 6.6 6.1 - 7.8 g/dL Albumin 3.1 (L) 3.2 - 5.0 g/dL T BILIRUBIN 2.1 (H) 0.2 - 1.0 mg/dL ALP 141 (H) 42 - 121 [iU]/L AST 111 (H) 10 - 42 [iU]/L ALT (SGPT) 75 (H) 10 - 60 [iU]/L OSMOLALITY 270 266 - 309 A/G Ratio 0.9 B/C 9 (L) 10 - 20 ESTIMATED GFR 58 mL/min Ammonia Result Value Ref Range AMMONIA 63 (H) 11 - 50 umol/L Procalcitonin, QN, S Result Value Ref Range PROCALCITONIN, QN, S 0.15 ng/mL Lactic Acid, Venous Result Value Ref Range LACTIC ACID 1.3 0.5 - 1.9 mmol/L Troponin I, HS, baseline Result Value Ref Range TROPONIN I, HS, BASELINE 3 0 - 15 PT/APTT/INR Result Value Ref Range PROTIME 18.5 (H) 10.1 - 13.7 s INR 1.6 (H) 0.9 - 1.1 APTT 38.6 (H) 24.2 - 34.2 s Fingerstick Glucose Result Value Ref Range GLUCOSE FINGERSTICK 137 (H) 70 - 110 mg/dL Results 12 Lead EKG - ED (Initial EKG) (Final result) Result time 09/28/24 11:20:12 Final result Narrative: [facility] Test Date: 2024-09-28 Pat Name: CAROLINA HIGHTOWER Department: EMERGENCY DEPARTMENT Room: Gender: Female Systems Developer: Ambreen powell : 1975 Requested By: PETE PONCE Order Number: [id number] Reading MD: Anjelica Bonilla MD Measurements Intervals [place] Rate: 61 P: 59 WY: 182 QRS: 24 QRSD: 90 T: 38 QT: 442 QTc: 447 Interpretive Statements SINUS RHYTHM No previous ECG available for comparison Electronically Signed On 09-28-2024 11:20:04 EST by Anjelica Bonilla MD Preliminary result Narrative: [facility] ED Test Date: 2024-09-28 Pat Name: CAROLINA HIGHTOWER Department: EMERGENCY DEPARTMENT Room: Gender: Female Systems Developer: Ambreen powell : 1975 Requested By: PETE PONCE Order Number: [id number] Reading MD: Measurements Intervals [place] Rate: 61 P: 59 WY: 182 QRS: 24 QRSD: 90 T: 38 QT: 442 QTc: 447 Interpretive Statements SINUS RHYTHM Consult: Plan: [facility] RECHECK: Discharge: The pt is awake, alert and stable appearing at time of reevaluation resting comfortably. I spoke with the patient about her ED work up, diagnosis and any further treatmentand to use lactulose 45 ml tid. I discussed the importance of following up with her REGULATORY AFFAIRS CONSULTANT and GI. I instructed her to return to the Emergency Room for new or worsening symptoms. All of the pt's questions were answered. The patient verbalized understanding. The patient is stable at time of discharge. Medical Decision Making DIFFERENTIAL DIAGNOSIS Differential Diagnosis: The following diagnoses were considered in the evaluation of this patient: Hep C Cirrhosis, hepatic encephalopathy Amount and/or Complexity of Data Reviewed Labs: ordered. ECG/medicine tests: ordered. Progress Note: ED Prescriptions None Final diagnoses: Chronic liver disease and cirrhosis (CMS/HCC) Thrombocytopenia (CMS/HCC) ED Disposition ED Disposition Discharged Condition Stable Comment -- Discharge Instructions Follow up with your REGULATORY AFFAIRS CONSULTANT Judie Gill as scheduled on 11/08 at 1140 am and follow up with Ange Espinoza. Take the lactulose 45 ml 3x a day and do not miss any doses. Scribe Attestation: Devon Cox acting as scribe for and in the presence of Pete Ponce MD Electronically Signed By Devon Cox 09/28/24 3:51 PM Provider Attestation: I personally performed the services described in the documentation, reviewed the documentation recorded by the scribe in my presence and it accurately and completely records my words and actions. * Mike Powell CMT - 09/28/2024 10:56 AM EST Finger stick gluc 137. [facility] Emergency department Note* Pete Ponce MD - 09/28/2024 12:31 PM EST Carolina Hightower [[id number]] (F) - 48 y.o. Note Creation:09/28/2024 Encounter Date:09/28/2024 History Chief Complaint Patient presents with General Illness Carolina Hightower is a 48 year old female with hx of Hep C Cirrhosis who presents to the ED from [facility] for evaluation of fatigue and generalized weakness recently. She is on Lactulose and Xifaxin. Compliant with medications. No fever, chest pain or abdominal pain. She is followed by Dr. Welsh. She also complained of her blood sugar dropping this morning. She ate multiple cookies to bring it back up. Said that she felt shaky. The pt denies any other pertinent symptoms or concerns. The pt denies any other aggravating or alleviating factors. The pt denies any other pertinent PMHx. The history is provided by the patient and medical records. Past Medical History: Diagnosis Date Ascites Bipolar disorder (CMS/HCC) Chronic hepatitis C virus infection (CMS/HCC) Cirrhosis (CMS/HCC) Kidney stone Past Surgical History: Procedure Laterality Date HX EGJ N/A 09/07/2024 EGD /C BIOPSY performed by Katharina Welsh MD at [facility] HX EGJ 09/07/2024 EGD /C BAND LIGATION VARICES performed by Katharina Welsh MD at [facility] HX LIVER BIOPSY HX POST STERILIZATION PARACENTESIS N/A 07/02/2024 Paracentesis performed by Max Rico MD at [facility] PARACENTESIS N/A 07/09/2024 Paracentesis performed by Ginger Milton MD at [facility] PARACENTESIS N/A 07/19/2024 Paracentesis performed by Minda Gómez MD at [facility] PARACENTESIS N/A 07/26/2024 Paracentesis performed by Max Rico MD at [facility] PARACENTESIS N/A 08/02/2024 Paracentesis performed by Ginger Milton MD at [facility] PARACENTESIS N/A 08/09/2024 Paracentesis performed by Minda Gómez MD at [facility] PARACENTESIS N/A 08/16/2024 Paracentesis performed by Ginger Milton MD at [facility] PARACENTESIS N/A 08/22/2024 Paracentesis performed by Max Rico MD at [facility] PARACENTESIS N/A 08/30/2024 Paracentesis performed by Minda Gómez MD at [facility] PARACENTESIS N/A 09/04/2024 Paracentesis performed by Ginger Milton MD at [facility] PARACENTESIS N/A 09/13/2024 Paracentesis performed by Max Rico MD at [facility] PARACENTESIS N/A 09/20/2024 Paracentesis performed by Minda Gómez MD at [facility] PARACENTESIS N/A 09/27/2024 Paracentesis performed by Ginger Milton MD at [facility] ULTRASOUND GUIDANCE N/A 07/02/2024 Ultrasound Guidance performed by Max Rico MD at [facility] ULTRASOUND GUIDANCE N/A 07/09/2024 Ultrasound Guidance performed by Ginger Milton MD at [facility] ULTRASOUND GUIDANCE N/A 07/19/2024 Ultrasound Guidance performed by Minda Gómez MD at [facility] ULTRASOUND GUIDANCE N/A 07/26/2024 Ultrasound Guidance performed by Max Rico MD at [facility] ULTRASOUND GUIDANCE N/A 08/02/2024 Ultrasound Guidance performed by Ginger Milton MD at [facility] ULTRASOUND GUIDANCE N/A 08/09/2024 Ultrasound Guidance performed by Minda Gómez MD at [facility] ULTRASOUND GUIDANCE N/A 08/16/2024 Ultrasound Guidance performed by Ginger Milton MD at [facility] ULTRASOUND GUIDANCE N/A 08/22/2024 Ultrasound Guidance performed by Max Rico MD at [facility] ULTRASOUND GUIDANCE N/A 08/30/2024 Ultrasound Guidance performed by Minda Gómez MD at [facility] ULTRASOUND GUIDANCE N/A 09/04/2024 Ultrasound Guidance performed by Ginger Milton MD at [facility] ULTRASOUND GUIDANCE N/A 09/13/2024 Ultrasound Guidance performed by Max Rico MD at [facility] ULTRASOUND GUIDANCE N/A 09/20/2024 Ultrasound Guidance performed by Minda Gómez MD at [facility] ULTRASOUND GUIDANCE N/A 09/27/2024 Ultrasound Guidance performed by Ginger Milton MD at [facility] Family History Problem Relation Name Age of Onset Stroke Mother High Cholesterol Mother Hypertension Mother Diabetes Mother Lung Disease Father Thyroid Disease Maternal Grandmother Social History Tobacco Use Smoking status: Every Day Current packs/day: 1.00 Types: Cigarettes Smokeless tobacco: Never Substance Use Topics Alcohol use: Not Currently Drug use: Not Currently Types: Methamphetamines Comment: new years 2023 Patient is a tobacco user, and I have offered a counseling referral. No LMP recorded. Patient is postmenopausal. Allergies Allergen Reactions Wellbutrin [Bupropion] Other (See Comments) seizures Codeine Hives Current Outpatient Medications on File Prior to Encounter Medication Sig traMADoL (ULTRAM) 50 mg tablet Take 1 Tablet by mouth Every 12 hours as needed. lactulose (CHRONULAC) 10 gram/15 mL solution Take 45 mL by mouth Three times a day. methocarbamoL (ROBAXIN) 500 mg tablet Take 1 Tablet by mouth Twice a day as needed. rifAXIMin (XIFAXAN) 550 mg tablet Take 1 Tablet by mouth Twice a day for 90 days. hydrOXYzine hcl (ATARAX) 25 mg tablet Take 25 mg by mouth Twice a day as needed for Itching. traZODone (DESYREL) 50 mg tablet Take 50 mg by mouth At bedtime. spironolactone 50 mg tablet Take 2 Tabs by mouth Once Daily for 360 days. furosemide (LASIX) 40 mg tablet Take 1 Tablet by mouth Once Daily. pantoprazole (PROTONIX) [address] tablet Take 1 Tablet by mouth Once Daily for 90 days. lurasidone (LATUDA) 20 mg tablet Take 20 mg by mouth Once Daily. busPIRone (BUSPAR) 10 mg tablet Take 10 mg by mouth Three times a day. desvenlafaxine succinate (PRISTIQ) 50 mg tablet Take 50 mg by mouth Once Daily. Take 25mg daily gabapentin (NEURONTIN) 100 mg capsule Take 100 mg by mouth Twice a day. fluticasone propionate (FLONASE) 50 mcg/Actuation nasal spray Prather 50 mcg in each nostril Once Daily. One spray both nostrils daily ferrous sulfate 325 mg (65 mg iron) DR tablet Take 325 mg by mouth Once Daily. topiramate (TOPAMAX) 25 mg Take 25 mg by mouth Once Daily. naloxone (NARCAN) 4 mg/actuation nasal spray Prather 1 Prather in nose As directed for 1 dose. Call 911, Administer via Nasal every 3-5 min until patient becomes responsive. Repeat as many times as necessary for pt to become responsive. Review of Systems Review of Systems Constitutional: Positive for fatigue. Negative for appetite change and fever. HENT: Negative for facial swelling. Eyes: Negative for discharge. Respiratory: Negative for cough, shortness of breath and wheezing. Cardiovascular: Negative for chest pain. Gastrointestinal: Positive for abdominal distention. Negative for abdominal pain. Endocrine: Negative for cold intolerance. Genitourinary: Negative for flank pain. Musculoskeletal: Negative for joint swelling. Skin: Positive for pallor. Negative for rash. Allergic/Immunologic: Positive for immunocompromised state. Neurological: Positive for weakness. Negative for syncope. Generalized Hematological: Negative for adenopathy. Psychiatric/Behavioral: Negative for confusion. All other systems reviewed and are negative. Physical Exam ED Triage Vitals [09/28/24 1048] BP BP Manual or Automatic? Patient Position BP Location Heart Rate (Monitor) 118/58 Automatic Sitting Right Arm -- Pulse Pulse Source Respirations Temp Temp Source 65 Brachial 18 98.2 F (36.8 C) Oral SpO2 SPO2 Location O2 Delivery O2 Device O2 Flow Rate (l/min) 100 % Right Arm Room air -- -- FIO2 (%) Pain Intensity 1 Exacerbated By Relieved By Quality -- 6 -- -- -- Duration -- Physical Exam Vitals and nursing note reviewed. Constitutional: General: She is not in acute distress. Appearance: She is well-developed. She is ill-appearing. She is not toxic- appearing or diaphoretic. Comments: PLEASANT [place]. HENT: Head: Normocephalic and atraumatic. Right Ear: External ear normal. Left Ear: External ear normal. Nose: No congestion or rhinorrhea. Mouth/Throat: Pharynx: No oropharyngeal exudate. Eyes: General: No scleral icterus. Right eye: No discharge. Left eye: No discharge. Extraocular Movements: Extraocular movements intact. Pupils: Pupils are equal, round, and reactive to light. Neck: Vascular: No JVD. Cardiovascular: Rate and Rhythm: Normal rate and regular rhythm. Heart sounds: Normal heart sounds. No murmur heard. Pulmonary: Effort: Pulmonary effort is normal. No respiratory distress. Breath sounds: Normal breath sounds. No stridor. No wheezing or rales. Abdominal: General: There is distension. Palpations: Abdomen is soft. Tenderness: There is no abdominal tenderness. There is no right CVA tenderness, left CVA tenderness, guarding or rebound. Comments: MILD ABDOMINAL DISTENTION. Musculoskeletal: General: No swelling, tenderness, deformity or signs of injury. Normal range of motion. Cervical back: Normal range of motion and neck supple. No rigidity or tenderness. No muscular tenderness. Right lower leg: No edema. Left lower leg: No edema. Lymphadenopathy: Cervical: No cervical adenopathy. Skin: General: Skin is warm and dry. Capillary Refill: Capillary refill takes less than 2 seconds. Coloration: Skin is pale. Skin is not jaundiced. Findings: No bruising, erythema, lesion or rash. Neurological: General: No focal deficit present. Mental Status: She is alert and oriented to person, place, and time. Mental status is at baseline. Sensory: No sensory deficit. Motor: No weakness. Psychiatric: Mood and Affect: Mood normal. Behavior: Behavior normal. MDM Treatment: Procedures Medications - No data to display Results for orders placed or performed during the hospital encounter of 09/28/24 CBC w/Differential Result Value Ref Range WBC 5.1 4.5 - 11.0 10*3/uL RBC 3.91 (L) 4.00 - 5.20 10*6/uL HGB 12.7 12.0 - 16.0 g/dL HCT 38.1 33.0 - 51.0 % MCV 97.5 80.0 - 100.0 fL MCHC 33.4 32.0 - 36.0 g/dL MCH 32.5 26.0 - 34.0 pg RDW 16.5 10.7 - 18.7 % MPV 9.2 6.5 - 10.0 fL Platelet Cnt 42 (LL) 150 - 450 10*3/uL Differential Type Auto Neutrophils 73.6 (H) 35.0 - 66.0 % Lymphocytes 13.8 (L) 24.0 - 44.0 % Monocytes 8.5 2.1 - 13.3 % Eosinophils 3.7 0.3 - 5.0 % Basophils 0.5 0.0 - 1.0 % Neutrophils Abs 3.8 1.5 - 8.5 10*3/uL Lymphocytes Abs 0.7 (L) 1.1 - 5.0 10*3/uL Monocytes Abs 0.4 0.0 - 1.4 10*3/uL Eosinophils Abs 0.2 0.0 - 0.5 10*3/uL Basophils Abs 0.0 0.0 - 0.1 10*3/uL Comprehensive Metabolic Panel Result Value Ref Range SODIUM 134 (L) 135 - 145 mmol/L POTASSIUM 3.6 3.6 - 5.0 mmol/L CHLORIDE 104 101 - 111 mmol/L CO2 24 21 - 31 mmol/L ANION GAP 6 GLUCOSE 155 (H) 70 - 110 mg/dL CREATININE 1.0 0.4 - 1.0 mg/dL BUN 9 2 - 32 mg/dL CALCIUM 8.8 8.5 - 10.5 mg/dL PROTEIN TOTAL 6.6 6.1 - 7.8 g/dL Albumin 3.1 (L) 3.2 - 5.0 g/dL T BILIRUBIN 2.1 (H) 0.2 - 1.0 mg/dL ALP 141 (H) 42 - 121 [iU]/L AST 111 (H) 10 - 42 [iU]/L ALT (SGPT) 75 (H) 10 - 60 [iU]/L OSMOLALITY 270 266 - 309 A/G Ratio 0.9 B/C 9 (L) 10 - 20 ESTIMATED GFR 58 mL/min Ammonia Result Value Ref Range AMMONIA 63 (H) 11 - 50 umol/L Procalcitonin, QN, S Result Value Ref Range PROCALCITONIN, QN, S 0.15 ng/mL Lactic Acid, Venous Result Value Ref Range LACTIC ACID 1.3 0.5 - 1.9 mmol/L Troponin I, HS, baseline Result Value Ref Range TROPONIN I, HS, BASELINE 3 0 - 15 PT/APTT/INR Result Value Ref Range PROTIME 18.5 (H) 10.1 - 13.7 s INR 1.6 (H) 0.9 - 1.1 APTT 38.6 (H) 24.2 - 34.2 s Fingerstick Glucose Result Value Ref Range GLUCOSE FINGERSTICK 137 (H) 70 - 110 mg/dL Results 12 Lead EKG - ED (Initial EKG) (Final result) Result time 09/28/24 11:20:12 Final result Narrative: [facility] Test Date: 2024-09-28 Pat Name: CAROLINA HIGHTOWER Department: EMERGENCY DEPARTMENT Room: Gender: Female Systems Developer: Ambreen powell : 1975 Requested By: PETE PONCE Order Number: [id number] Reading MD: Anjelica Bonilla MD Measurements Intervals [place] Rate: 61 P: 59 [place]: 182 QRS: 24 QRSD: 90 T: 38 QT: 442 QTc: 447 Interpretive Statements SINUS RHYTHM No previous ECG available for comparison Electronically Signed On 09-28-2024 11:20:04 EST by Anjelica Bonilla MD Preliminary result Narrative: [facility] Test Date: 2024-09-28 Pat Name: CAROLINA HIGHTOWER Department: EMERGENCY DEPARTMENT Room: Gender: Female Systems Developer: Ambreen powell : 1975 Requested By: PETE PONCE Order Number: [id number] Reading MD: Measurements Intervals [place] Rate: 61 P: 59 [place]: 182 QRS: 24 QRSD: 90 T: 38 QT: 442 QTc: 447 Interpretive Statements SINUS RHYTHM Consult: Plan: [facility] [place]HECK: Discharge: The pt is awake, alert and stable appearing at time of reevaluation resting comfortably. I spoke with the patient about her ED work up, diagnosis and any further treatmentand to use lactulose 45 ml tid. I discussed the importance of following up with her REGULATORY AFFAIRS CONSULTANT and GI. I instructed her to return to the Emergency Room for new or worsening symptoms. All of the pt's questions were answered. The patient verbalized understanding. The patient is stable at time of discharge. Medical Decision Making DIFFERENTIAL DIAGNOSIS Differential Diagnosis: The following diagnoses were considered in the evaluation of this patient: Hep C Cirrhosis, hepatic encephalopathy Amount and/or Complexity of Data Reviewed Labs: ordered. ECG/medicine tests: ordered. Progress Note: ED Prescriptions None Final diagnoses: Chronic liver disease and cirrhosis (CMS/HCC) Thrombocytopenia (CMS/HCC) ED Disposition ED Disposition Discharged Condition Stable Comment -- Discharge Instructions Follow up with your REGULATORY AFFAIRS CONSULTANT Judie Gill as scheduled on 11/08 at 1140 am and follow up with Ange Espinoza. Take the lactulose 45 ml 3x a day and do not miss any doses. Scribe Attestation: Devon Cox acting as scribe for and in the presence of Pete Ponce MD Electronically Signed By Devon Cox 09/28/24 3:51 PM Provider Attestation: I personally performed the services described in the documentation, reviewed the documentation recorded by the scribe in my presence and it accurately and completely records my words and actions. [facility] Hospital Discharge instructions* Discharge Instructions* Pete Ponce MD - 09/28/2024 12:13 PM EST Follow up with your REGULATORY AFFAIRS CONSULTANT Judie Gill as scheduled on 11/08 at 1140 am and follow up with Ange Espinoza. Take the lactulose 45 ml 3x a day and do not miss any doses. [facility] Note* Critical Test Results - Jakob Babcock RN - 09/28/2024 11:50 AM EST Carolina Hightower Test Name: plt 42 Results: 09/28/2024 Time: 1148 Received from: lab R/V by: eddie (Required: Attempt notification within 30 minutes or document reason for no notification) Physician: PK 09/28/2024 Time: 1148 Notified: Yes - No orders received [facility] Miscellaneous Notes* Critical Test Results - Jakob Babcock RN - 09/28/2024 11:50 AM EST Carolina Hightower Test Name: plt 42 Results: 09/28/2024 Time: 1148 Received from: lab R/V by: eddie (Required: Attempt notification within 30 minutes or document reason for no notification) Physician: PK 09/28/2024 Time: 1148 Notified: Yes - No orders received [facility] Emergency department Note* Mike Powell CMT - 09/28/2024 10:56 AM EST Finger stick gluc 137. [facility]01[facility] History and physical note* Ginger Milton MD - 09/27/2024 10:04 AM EST Images from the original note were not included. History and Physical for Interventional Radiology Name: Carolina Hightower : 1975 09/27/2024 HPI: Recurrent symptomatic ascites Past Medical History: Diagnosis Date Ascites Bipolar disorder (CMS/HCC) Chronic hepatitis C virus infection (CMS/HCC) Cirrhosis (CMS/HCC) Kidney stone Current Facility-Administered Medications on File Prior to Encounter Medication Dose Route Frequency Provider Last Rate Last Admin [COMPLETED] lidocaine (preservative free) 20 mg/mL (2 %) injection ONE TIME PRN Minda Gómez MD 10 mL at 09/20/24 1021 [COMPLETED] lidocaine (preservative free) 10 mg/mL (1 %) injection ONE TIME PRN Max Rico MD 10 mL at 09/13/24 1423 [COMPLETED] amoxicillin-pot clavulanate (AUGMENTIN) tab 875 mg 875 mg Oral BID Vanesa Hartman MD 875 mg at 09/09/24 0833 [COMPLETED] magnesium sulfate in water (2g/50mL premix) piggyback (PREMIX) 2 g 2 g Intravenous ONE TIME Raul Burch MD 25 mL/hr at 09/04/24 0359 2 g at 09/04/24 0359 [] LIDOCAINE (PF) 20 MG/ML (2 %) INJECTION SOLUTION (Pyxis override) [COMPLETED] lidocaine (preservative free) 20 mg/mL (2 %) injection ONE TIME PRN Ginger Milton MD 10 mL at 09/04/24 1527 [COMPLETED] magnesium sulfate in water (2g/50mL premix) piggyback (PREMIX) 2 g 2 g Intravenous ONE TIME Manpreet Mills MD 25 mL/hr at 09/03/24 0405 2 g at 09/03/24 0405 [COMPLETED] calcium gluconate in NaCl (ISO-OS) 100mL piggyback (PREMIX) 2 g 2 g Intravenous ONE TIME Kathy Stapleton MD 100 mL/hr at 09/02/24 0234 2 g at 09/02/24 0234 [] traMADoL (ULTRAM) tab 50 mg 50 mg Oral Q12H PRN Katharina Welsh MD 50 mg at 09/08/24 0423 [] oxyCODONE (ROXICODONE) immediate release tab 5 mg 5 mg Oral Q6H PRN Katharina Welsh MD5 mg at 09/09/24 0925 [COMPLETED] lactulose (CHRONULAC) 20 gram/30 mL soln 20 g 20 g Oral ONE TIME Leah Hector DO20 g at 09/01/24 2150 [COMPLETED] lidocaine (preservative free) 20 mg/mL (2 %) injection ONE TIME PRN Minda Gómez MD 10 mL at 08/30/24 1352 Current Outpatient Medications on File Prior to Encounter Medication Sig Dispense Refill traMADoL (ULTRAM) 50 mg tablet Take 1 Tablet by mouth Every 12 hours as needed. 6 Tablet 0 lactulose (CHRONULAC) 10 gram/15 mL solution Take 45 mL by mouth Three times a day. 1000 mL 2 methocarbamoL (ROBAXIN) 500 mg tablet Take 1 Tablet by mouth Twice a day as needed. 20 Tablet 0 rifAXIMin (XIFAXAN) 550 mg tablet Take 1 Tablet by mouth Twice a day for 90 days. 60 Tablet 2 hydrOXYzine hcl (ATARAX) 25 mg tablet Take 25 mg by mouth Twice a day as needed for Itching. traZODone (DESYREL) 50 mg tablet Take 50 mg by mouth At bedtime. spironolactone 50 mg tablet Take 2 Tabs by mouth Once Daily for 360 days. 180 Tablet 3 furosemide (LASIX) 40 mg tablet Take 1 Tablet by mouth Once Daily. 30 Tablet 3 pantoprazole (PROTONIX) [address] tablet Take 1 Tablet by mouth Once Daily for 90 days. 30 Tablet 2 lurasidone (LATUDA) 20 mg tablet Take 20 mg by mouth Once Daily. busPIRone (BUSPAR) 10 mg tablet Take 10 mg by mouth Three times a day. desvenlafaxine succinate (PRISTIQ) 50 mg tablet Take 50 mg by mouth Once Daily. Take 25mg daily gabapentin (NEURONTIN) 100 mg capsule Take 100 mg by mouth Twice a day. fluticasone propionate (FLONASE) 50 mcg/Actuation nasal spray Prather 50 mcg in each nostril Once Daily. One spray both nostrils daily ferrous sulfate 325 mg (65 mg iron) DR tablet Take 325 mg by mouth Once Daily. topiramate (TOPAMAX) 25 mg Take 25 mg by mouth Once Daily. naloxone (NARCAN) 4 mg/actuation nasal spray Prather 1 Prather in nose As directed for 1 dose. Call 911, Administer via Nasal every 3-5 min until patient becomes responsive. Repeat as many times as necessary for pt to become responsive. 2 Each 11 Patient's allergies: Allergies Allergen Reactions Wellbutrin [Bupropion] Other (See Comments) seizures Codeine Hives Physical Exam HENT: Head: Normocephalic. Cardiovascular: Rate and Rhythm: Normal rate. Pulmonary: Effort: Pulmonary effort is normal. Abdominal: General: There is distension. Musculoskeletal: General: Normal range of motion. Skin: General: Skin is warm. Neurological: Mental Status: She is alert. Mental status is at baseline. Psychiatric: Mood and Affect: Mood normal. A/P: Ascites. Will proceed with requested paracentesis. Discussed the potential benefits, risks, and alternatives to the proposed procedure. Ms. Hightower is in agreement with the plan of care. Signed: Ginger Milton M.D. 09/27/2024 10:04 AM [facility] Work Phone: 1(212) 376-844601-02-2025 History and physical note* Ginger Milton MD - 09/27/2024 10:04 AM EST Images from the original note were not included. History and Physical for Interventional Radiology Name: Carolina Hightower : 1975 09/27/2024 HPI: Recurrent symptomatic ascites Past Medical History: Diagnosis Date Ascites Bipolar disorder (CMS/HCC) Chronic hepatitis C virus infection (CMS/HCC) Cirrhosis (CMS/HCC) Kidney stone Current Facility-Administered Medications on File Prior to Encounter Medication Dose Route Frequency Provider Last Rate Last Admin [COMPLETED] lidocaine (preservative free) 20 mg/mL (2 %) injection ONE TIME PRN Minda Gómez MD 10 mL at 09/20/24 1021 [COMPLETED] lidocaine (preservative free) 10 mg/mL (1 %) injection ONE TIME PRN Max Rico MD 10 mL at 09/13/24 1423 [COMPLETED] amoxicillin-pot clavulanate (AUGMENTIN) tab 875 mg 875 mg Oral BID Vanesa Hartman MD 875 mg at 09/09/24 0833 [COMPLETED] magnesium sulfate in water (2g/50mL premix) piggyback (PREMIX) 2 g 2 g Intravenous ONE TIME Raul Burch MD 25 mL/hr at 09/04/24 0359 2 g at 09/04/24 0359 [] LIDOCAINE (PF) 20 MG/ML (2 %) INJECTION SOLUTION (Pyxis override) [COMPLETED] lidocaine (preservative free) 20 mg/mL (2 %) injection ONE TIME PRN Ginger Milton MD 10 mL at 09/04/24 1527 [COMPLETED] magnesium sulfate in water (2g/50mL premix) piggyback (PREMIX) 2 g 2 g Intravenous ONE TIME Manpreet Mills MD 25 mL/hr at 09/03/24 0405 2 g at 09/03/24 0405 [COMPLETED] calcium gluconate in NaCl (ISO-OS) 100mL piggyback (PREMIX) 2 g 2 g Intravenous ONE TIME Kathy Stapleton MD 100 mL/hr at 09/02/24 0234 2 g at 09/02/24 0234 [] traMADoL (ULTRAM) tab 50 mg 50 mg Oral Q12H PRN Katharina Welsh MD 50 mg at 09/08/24 0423 [] oxyCODONE (ROXICODONE) immediate release tab 5 mg 5 mg Oral Q6H PRN Katharina Welsh MD5 mg at 09/09/24 0925 [COMPLETED] lactulose (CHRONULAC) 20 gram/30 mL soln 20 g 20 g Oral ONE TIME Leah Hetcor, DO20 g at 09/01/24 2150 [COMPLETED] lidocaine (preservative free) 20 mg/mL (2 %) injection ONE TIME PRN Minda Gómez MD 10 mL at 08/30/24 1352 Current Outpatient Medications on File Prior to Encounter Medication Sig Dispense Refill traMADoL (ULTRAM) 50 mg tablet Take 1 Tablet by mouth Every 12 hours as needed. 6 Tablet 0 lactulose (CHRONULAC) 10 gram/15 mL solution Take 45 mL by mouth Three times a day. 1000 mL 2 methocarbamoL (ROBAXIN) 500 mg tablet Take 1 Tablet by mouth Twice a day as needed. 20 Tablet 0 rifAXIMin (XIFAXAN) 550 mg tablet Take 1 Tablet by mouth Twice a day for 90 days. 60 Tablet 2 hydrOXYzine hcl (ATARAX) 25 mg tablet Take 25 mg by mouth Twice a day as needed for Itching. traZODone (DESYREL) 50 mg tablet Take 50 mg by mouth At bedtime. spironolactone 50 mg tablet Take 2 Tabs by mouth Once Daily for 360 days. 180 Tablet 3 furosemide (LASIX) 40 mg tablet Take 1 Tablet by mouth Once Daily. 30 Tablet 3 pantoprazole (PROTONIX) [address] tablet Take 1 Tablet by mouth Once Daily for 90 days. 30 Tablet 2 lurasidone (LATUDA) 20 mg tablet Take 20 mg by mouth Once Daily. busPIRone (BUSPAR) 10 mg tablet Take 10 mg by mouth Three times a day. desvenlafaxine succinate (PRISTIQ) 50 mg tablet Take 50 mg by mouth Once Daily. Take 25mg daily gabapentin (NEURONTIN) 100 mg capsule Take 100 mg by mouth Twice a day. fluticasone propionate (FLONASE) 50 mcg/Actuation nasal spray Prather 50 mcg in each nostril Once Daily. One spray both nostrils daily ferrous sulfate 325 mg (65 mg iron) DR tablet Take 325 mg by mouth Once Daily. topiramate (TOPAMAX) 25 mg Take 25 mg by mouth Once Daily. naloxone (NARCAN) 4 mg/actuation nasal spray Prather 1 Prather in nose As directed for 1 dose. Call 911, Administer via Nasal every 3-5 min until patient becomes responsive. Repeat as many times as necessary for pt to become responsive. 2 Each 11 Patient's allergies: Allergies Allergen Reactions Wellbutrin [Bupropion] Other (See Comments) seizures Codeine Hives Physical Exam HENT: Head: Normocephalic. Cardiovascular: Rate and Rhythm: Normal rate. Pulmonary: Effort: Pulmonary effort is normal. Abdominal: General: There is distension. Musculoskeletal: General: Normal range of motion. Skin: General: Skin is warm. Neurological: Mental Status: She is alert. Mental status is at baseline. Psychiatric: Mood and Affect: Mood normal. A/P: Ascites. Will proceed with requested paracentesis. Discussed the potential benefits, risks, and alternatives to the proposed procedure. Ms. Hightower is in agreement with the plan of care. Signed: Ginger Milton M.D. 09/27/2024 10:04 AM documented in this [facility]The [facility]12-26-[facility]24 History and physical note* Minda Gómez MD - 09/20/2024 10:09 AM EST History and Physical for Interventional Radiology Name: Carolina Hightower : 1975 09/20/2024 HPI: Liver cirrhosis with recurrent abdominal distention and symptomatic ascites. Past Medical History: Diagnosis Date Ascites Bipolar disorder (CMS/HCC) Chronic hepatitis C virus infection (CMS/HCC) Cirrhosis (CMS/HCC) Kidney stone Current Facility-Administered Medications on File Prior to Encounter Medication Dose Route Frequency Provider Last Rate Last Admin [COMPLETED] lidocaine (preservative free) 10 mg/mL (1 %) injection ONE TIME PRN Max Rico MD 10 mL at 09/13/24 1423 [COMPLETED] amoxicillin-pot clavulanate (AUGMENTIN) tab 875 mg 875 mg Oral BID Vanesa Hartman MD 875 mg at 09/09/24 0833 [COMPLETED] magnesium sulfate in water (2g/50mL premix) piggyback (PREMIX) 2 g 2 g Intravenous ONE TIME Raul Burch MD 25 mL/hr at 09/04/24 0359 2 g at 09/04/24 0359 [] LIDOCAINE (PF) 20 MG/ML (2 %) INJECTION SOLUTION (Pyxis override) [COMPLETED] lidocaine (preservative free) 20 mg/mL (2 %) injection ONE TIME PRN Ginger Milton MD 10 mL at 09/04/24 1527 [COMPLETED] magnesium sulfate in water (2g/50mL premix) piggyback (PREMIX) 2 g 2 g Intravenous ONE TIME Manpreet Mills MD 25 mL/hr at 09/03/24 0405 2 g at 09/03/24 0405 [COMPLETED] calcium gluconate in NaCl (ISO-OS) 100mL piggyback (PREMIX) 2 g 2 g Intravenous ONE TIME Kathy Stapleton MD 100 mL/hr at 09/02/24 0234 2 g at 09/02/24 0234 [] traMADoL (ULTRAM) tab 50 mg 50 mg Oral Q12H PRN Katharina Welsh MD 50 mg at 09/08/24 0423 [] oxyCODONE (ROXICODONE) immediate release tab 5 mg 5 mg Oral Q6H PRN Katharina Welsh MD5 mg at 09/09/24 0925 [COMPLETED] lactulose (CHRONULAC) 20 gram/30 mL soln 20 g 20 g Oral ONE TIME Leah Hector PriceDO20 g at 09/01/24 2150 [COMPLETED] lidocaine (preservative free) 20 mg/mL (2 %) injection ONE TIME PRN Minda Gómez MD 10 mL at 08/30/24 1352 [COMPLETED] lidocaine (preservative free) 10 mg/mL (1 %) injection ONE TIME PRN Max Rico MD 10 mL at 08/22/24 1254 Current Outpatient Medications on File Prior to Encounter Medication Sig Dispense Refill traMADoL (ULTRAM) 50 mg tablet Take 1 Tablet by mouth Every 12 hours as needed. 6 Tablet 0 lactulose (CHRONULAC) 10 gram/15 mL solution Take 45 mL by mouth Three times a day. 1000 mL 2 methocarbamoL (ROBAXIN) 500 mg tablet Take 1 Tablet by mouth Twice a day as needed. 20 Tablet 0 rifAXIMin (XIFAXAN) 550 mg tablet Take 1 Tablet by mouth Twice a day for 90 days. 60 Tablet 2 hydrOXYzine hcl (ATARAX) 25 mg tablet Take 25 mg by mouth Twice a day as needed for Itching. traZODone (DESYREL) 50 mg tablet Take 50 mg by mouth At bedtime. spironolactone 50 mg tablet Take 2 Tabs by mouth Once Daily for 360 days. 180 Tablet 3 furosemide (LASIX) 40 mg tablet Take 1 Tablet by mouth Once Daily. 30 Tablet 3 pantoprazole (PROTONIX) [address] tablet Take 1 Tablet by mouth Once Daily for 90 days. 30 Tablet 2 lurasidone (LATUDA) 20 mg tablet Take 20 mg by mouth Once Daily. busPIRone (BUSPAR) 10 mg tablet Take 10 mg by mouth Three times a day. desvenlafaxine succinate (PRISTIQ) 50 mg tablet Take 50 mg by mouth Once Daily. Take 25mg daily gabapentin (NEURONTIN) 100 mg capsule Take 100 mg by mouth Twice a day. fluticasone propionate (FLONASE) 50 mcg/Actuation nasal spray Prather 50 mcg in each nostril Once Daily. One spray both nostrils daily ferrous sulfate 325 mg (65 mg iron) DR tablet Take 325 mg by mouth Once Daily. topiramate (TOPAMAX) 25 mg Take 25 mg by mouth Once Daily. naloxone (NARCAN) 4 mg/actuation nasal spray Prather 1 Prather in nose As directed for 1 dose. Call 911, Administer via Nasal every 3-5 min until patient becomes responsive. Repeat as many times as necessary for pt to become responsive. 2 Each 11 Patient's allergies: Allergies Allergen Reactions Wellbutrin [Bupropion] Other (See Comments) seizures Codeine Hives Physical Exam Constitutional: Appearance: Normal appearance. HENT: Head: Normocephalic and atraumatic. Cardiovascular: Pulses: Normal pulses. Pulmonary: Effort: Pulmonary effort is normal. Abdominal: General: There is distension. Tenderness: There is no abdominal tenderness. There is no guarding. Musculoskeletal: General: Normal range of motion. Cervical back: Normal range of motion and neck supple. Skin: General: Skin is warm and dry. Neurological: Mental Status: She is alert. A/P: Will proceed with requested paracentesis. Discussed the potential benefits, risks, and alternatives to the proposed procedure. Ms. Hightower is in agreement with the plan of care. Signed: Minda Gómez M.D., MD 09/20/2024 10:10 AM [facility] Work Phone: 1(476) 953-744512-26-2024 History and physical note* Minda Gómez MD - 09/20/2024 10:09 AM EST History and Physical for Interventional Radiology Name: Carolina Hightower : 1975 09/20/2024 HPI: Liver cirrhosis with recurrent abdominal distention and symptomatic ascites. Past Medical History: Diagnosis Date Ascites Bipolar disorder (CMS/HCC) Chronic hepatitis C virus infection (CMS/HCC) Cirrhosis (CMS/HCC) Kidney stone Current Facility-Administered Medications on File Prior to Encounter Medication Dose Route Frequency Provider Last Rate Last Admin [COMPLETED] lidocaine (preservative free) 10 mg/mL (1 %) injection ONE TIME PRN Max Rico MD 10 mL at 09/13/24 1423 [COMPLETED] amoxicillin-pot clavulanate (AUGMENTIN) tab 875 mg 875 mg Oral BID Vanesa Hartman MD 875 mg at 09/09/24 0833 [COMPLETED] magnesium sulfate in water (2g/50mL premix) piggyback (PREMIX) 2 g 2 g Intravenous ONE TIME Raul Burch MD 25 mL/hr at 09/04/24 0359 2 g at 09/04/24 0359 [] LIDOCAINE (PF) 20 MG/ML (2 %) INJECTION SOLUTION (Pyxis override) [COMPLETED] lidocaine (preservative free) 20 mg/mL (2 %) injection ONE TIME PRN Ginger Milton MD 10 mL at 09/04/24 1527 [COMPLETED] magnesium sulfate in water (2g/50mL premix) piggyback (PREMIX) 2 g 2 g Intravenous ONE TIME Manpreet Mills MD 25 mL/hr at 09/03/24 0405 2 g at 09/03/24 0405 [COMPLETED] calcium gluconate in NaCl (ISO-OS) 100mL piggyback (PREMIX) 2 g 2 g Intravenous ONE TIME Kathy Stapleton MD 100 mL/hr at 09/02/24 0234 2 g at 09/02/24 0234 [] traMADoL (ULTRAM) tab 50 mg 50 mg Oral Q12H PRN Katharina Welsh MD 50 mg at 09/08/24 0423 [] oxyCODONE (ROXICODONE) immediate release tab 5 mg 5 mg Oral Q6H PRN Katharina Welsh MD5 mg at 09/09/24 0925 [COMPLETED] lactulose (CHRONULAC) 20 gram/30 mL soln 20 g 20 g Oral ONE TIME Leah Hector DO20 g at 09/01/24 215 [COMPLETED] lidocaine (preservative free) 20 mg/mL (2 %) injection ONE TIME PRN Minda Gómez MD 10 mL at 08/30/24 1352 [COMPLETED] lidocaine (preservative free) 10 mg/mL (1 %) injection ONE TIME PRN Max Rico MD 10 mL at 08/22/24 1254 Current Outpatient Medications on File Prior to Encounter Medication Sig Dispense Refill traMADoL (ULTRAM) 50 mg tablet Take 1 Tablet by mouth Every 12 hours as needed. 6 Tablet 0 lactulose (CHRONULAC) 10 gram/15 mL solution Take 45 mL by mouth Three times a day. 1000 mL 2 methocarbamoL (ROBAXIN) 500 mg tablet Take 1 Tablet by mouth Twice a day as needed. 20 Tablet 0 rifAXIMin (XIFAXAN) 550 mg tablet Take 1 Tablet by mouth Twice a day for 90 days. 60 Tablet 2 hydrOXYzine hcl (ATARAX) 25 mg tablet Take 25 mg by mouth Twice a day as needed for Itching. traZODone (DESYREL) 50 mg tablet Take 50 mg by mouth At bedtime. spironolactone 50 mg tablet Take 2 Tabs by mouth Once Daily for 360 days. 180 Tablet 3 furosemide (LASIX) 40 mg tablet Take 1 Tablet by mouth Once Daily. 30 Tablet 3 pantoprazole (PROTONIX) [address] tablet Take 1 Tablet by mouth Once Daily for 90 days. 30 Tablet 2 lurasidone (LATUDA) 20 mg tablet Take 20 mg by mouth Once Daily. busPIRone (BUSPAR) 10 mg tablet Take 10 mg by mouth Three times a day. desvenlafaxine succinate (PRISTIQ) 50 mg tablet Take 50 mg by mouth Once Daily. Take 25mg daily gabapentin (NEURONTIN) 100 mg capsule Take 100 mg by mouth Twice a day. fluticasone propionate (FLONASE) 50 mcg/Actuation nasal spray Prather 50 mcg in each nostril Once Daily. One spray both nostrils daily ferrous sulfate 325 mg (65 mg iron) DR tablet Take 325 mg by mouth Once Daily. topiramate (TOPAMAX) 25 mg Take 25 mg by mouth Once Daily. naloxone (NARCAN) 4 mg/actuation nasal spray Prather 1 Prather in nose As directed for 1 dose. Call 911, Administer via Nasal every 3-5 min until patient becomes responsive. Repeat as many times as necessary for pt to become responsive. 2 Each 11 Patient's allergies: Allergies Allergen Reactions Wellbutrin [Bupropion] Other (See Comments) seizures Codeine Hives Physical Exam Constitutional: Appearance: Normal appearance. HENT: Head: Normocephalic and atraumatic. Cardiovascular: Pulses: Normal pulses. Pulmonary: Effort: Pulmonary effort is normal. Abdominal: General: There is distension. Tenderness: There is no abdominal tenderness. There is no guarding. Musculoskeletal: General: Normal range of motion. Cervical back: Normal range of motion and neck supple. Skin: General: Skin is warm and dry. Neurological: Mental Status: She is alert. A/P: Will proceed with requested paracentesis. Discussed the potential benefits, risks, and alternatives to the proposed procedure. Ms. Hightower is in agreement with the plan of care. Signed: iMnda Gómez M.D., MD 09/20/2024 10:10 AM documented in this [facility]12-26-2024 Hospital Discharge instructions* Discharge Instructions* Karen Stanton - 09/20/2024 9:38 AM EST Drainage Procedure Paracentesis Post Procedure Discharge Instructions What to expect after your procedure: You may experience some cramping, swelling or discomfort immediately after the procedure. These symptoms usually disappear in one or two days. Bruising may continue for 7-10 days. What you need to do: It is best to rest the site for the next 12 hours. You may continue your normal diet with any restrictions as prior to your procedure. You may resume your medications as prior to procedure. Inspect your site daily. Keep drainage site clean and dry. You may remove your dressing 48 hours (2 days). You may take your regular prescription medications as you usually do. You may continue your normal diet, the same as before your procedure. Continue any diet or fluid restriction as ordered by your physician. You will need to have someone to drive you home from the hospital upon discharge. What not to do: No heavy lifting or straining for 48 hours. Limit bathing for 48 hours or until dressing is removed. Do not apply lotions or ointment to site, unless instructed by your physician. When to contact your physician (the Physician who ordered the procedure): Any signs of infection, fever greater than 101.5, warmth to touch, drainage, redness or swelling a the site. If swelling or discomfort at site continues for more than 2 days after procedure. Excessive or abnormal bleeding. If bleeding occurs, apply pressure to site with fingertips for 10 - 15 minutes. If bleeding does not stop go to nearest Emergency Room. Any chest pain or shortness of breath, please go to nearest Emergency Room. New onset of generalized weakness. Nausea or vomiting. Notes: Your follow up appointment has been made for Sep 27 at 9:30am. If this appointment needs to be cancelled or rescheduled please call the nurse at [phone]. If you have any questions or concerns about your procedure please call: [phone] or [phone]. These instructions have been explained to me. I understand their content and have received a copy. Sign: Witness: Thank [facility] Vascular and Interventional Department documented in this [facility]The [facility] Center12-19-[facility]24 Note Procedure: Ultrasound guided therapeutic paracentesis Indication: Cirrhosis with ascites, abdominal distention and discomfort Complication: None immediate Description of the procedure: Written informed consent was obtained. She was placed in the supine position. The abdomen was prepped and draped in the usual sterile fashion. 1% lidocaine without epinephrine was used as a local anesthetic. A dermatotomy was created with an 11 blade. Under direct sonographic guidance using aseptic technique a 6.5 Swedish merit resolve drainage catheter was placed into the peritoneal cavity of the right lower quadrant followed by the removal 2600 ml yellow ascitic fluid. The fluid was discarded. The catheter was removed, examined and found to be intact. The dermatotomy was covered with sterile 4 x 4 and Tegaderm dressing. There were no immediate complications or patient complaints. Impression: Technically successful ultrasound-guided therapeutic paracentesis as above. [facility] History and physical note* Max Rico MD - 09/13/2024 2:10 PM EST History and Physical for Interventional Radiology Name: Carolina Hightower : 1975 09/13/2024 HPI: ascites Past Medical History: Diagnosis Date Ascites Bipolar disorder (CMS/HCC) Chronic hepatitis C virus infection (CMS/HCC) Cirrhosis (CMS/HCC) Kidney stone Current Facility-Administered Medications on File Prior to Encounter Medication Dose Route Frequency Provider Last Rate Last Admin [COMPLETED] amoxicillin-pot clavulanate (AUGMENTIN) tab 875 mg 875 mg Oral BID Vanesa Hartman MD 875 mg at 09/09/24 0833 [COMPLETED] magnesium sulfate in water (2g/50mL premix) piggyback (PREMIX) 2 g 2 g Intravenous ONE TIME Raul Burch MD 25 mL/hr at 09/04/24 0359 2 g at 09/04/24 0359 [] LIDOCAINE (PF) 20 MG/ML (2 %) INJECTION SOLUTION (Pyxis override) [COMPLETED] lidocaine (preservative free) 20 mg/mL (2 %) injection ONE TIME PRN Ginger Milton MD 10 mL at 09/04/24 1527 [COMPLETED] magnesium sulfate in water (2g/50mL premix) piggyback (PREMIX) 2 g 2 g Intravenous ONE TIME Manpreet Mills MD 25 mL/hr at 09/03/24 0405 2 g at 09/03/24 0405 [COMPLETED] calcium gluconate in NaCl (ISO-OS) 100mL piggyback (PREMIX) 2 g 2 g Intravenous ONE TIME Kathy Stapleton MD 100 mL/hr at 09/02/24 0234 2 g at 09/02/24 0234 [] traMADoL (ULTRAM) tab 50 mg 50 mg Oral Q12H PRN Katharina Welsh MD 50 mg at 09/08/24 0423 [] oxyCODONE (ROXICODONE) immediate release tab 5 mg 5 mg Oral Q6H PRN Katharina Welsh MD5 mg at 09/09/24 0925 [COMPLETED] lactulose (CHRONULAC) 20 gram/30 mL soln 20 g 20 g Oral ONE TIME Leah Hector DO20 g at 09/01/24 2150 [COMPLETED] lidocaine (preservative free) 20 mg/mL (2 %) injection ONE TIME PRN Minda Gómez MD 10 mL at 08/30/24 1352 [COMPLETED] lidocaine (preservative free) 10 mg/mL (1 %) injection ONE TIME PRN Max Rico MD 10 mL at 08/22/24 1254 [COMPLETED] lidocaine (preservative free) 20 mg/mL (2 %) injection ONE TIME PRN Ginger Milton MD 5 mLat 08/16/24 1340 Current Outpatient Medications on File Prior to Encounter Medication Sig Dispense Refill traMADoL (ULTRAM) 50 mg tablet Take 1 Tablet by mouth Every 12 hours as needed. 6 Tablet 0 lactulose (CHRONULAC) 10 gram/15 mL solution Take 45 mL by mouth Three times a day. 1000 mL 2 methocarbamoL (ROBAXIN) 500 mg tablet Take 1 Tablet by mouth Twice a day as needed. 20 Tablet 0 rifAXIMin (XIFAXAN) 550 mg tablet Take 1 Tablet by mouth Twice a day for 90 days. 60 Tablet 2 hydrOXYzine hcl (ATARAX) 25 mg tablet Take 25 mg by mouth Twice a day as needed for Itching. traZODone (DESYREL) 50 mg tablet Take 50 mg by mouth At bedtime. spironolactone 50 mg tablet Take 2 Tabs by mouth Once Daily for 360 days. 180 Tablet 3 furosemide (LASIX) 40 mg tablet Take 1 Tablet by mouth Once Daily. 30 Tablet 3 pantoprazole (PROTONIX) [address] tablet Take 1 Tablet by mouth Once Daily for 90 days. 30 Tablet 2 lurasidone (LATUDA) 20 mg tablet Take 20 mg by mouth Once Daily. busPIRone (BUSPAR) 10 mg tablet Take 10 mg by mouth Three times a day. desvenlafaxine succinate (PRISTIQ) 50 mg tablet Take 50 mg by mouth Once Daily. Take 25mg daily gabapentin (NEURONTIN) 100 mg capsule Take 100 mg by mouth Twice a day. fluticasone propionate (FLONASE) 50 mcg/Actuation nasal spray Prather 50 mcg in each nostril Once Daily. One spray both nostrils daily ferrous sulfate 325 mg (65 mg iron) DR tablet Take 325 mg by mouth Once Daily. topiramate (TOPAMAX) 25 mg Take 25 mg by mouth Once Daily. naloxone (NARCAN) 4 mg/actuation nasal spray Prather 1 Prather in nose As directed for 1 dose. Call 911, Administer via Nasal every 3-5 min until patient becomes responsive. Repeat as many times as necessary for pt to become responsive. 2 Each 11 Patient's allergies: Allergies Allergen Reactions Wellbutrin [Bupropion] Other (See Comments) seizures Codeine Hives Physical Exam aox3 A/P: ascites. Will proceed with requested paracentesis. Discussed the potential benefits, risks, and alternatives to the proposed procedure. Ms. Hightower is in agreement with the plan of care. Signed: Max Rico MD 09/13/2024 2:31 PM [facility] Work Phone: [phone]) 801-559012-19-2024 History and physical note* Max Rico MD - 09/13/2024 2:10 PM EST History and Physical for Interventional Radiology Name: Carolina Hightower : 1975 09/13/2024 HPI: ascites Past Medical History: Diagnosis Date Ascites Bipolar disorder (CMS/HCC) Chronic hepatitis C virus infection (CMS/HCC) Cirrhosis (CMS/HCC) Kidney stone Current Facility-Administered Medications on File Prior to Encounter Medication Dose Route Frequency Provider Last Rate Last Admin [COMPLETED] amoxicillin-pot clavulanate (AUGMENTIN) tab 875 mg 875 mg Oral BID Vanesa Hartman MD 875 mg at 09/09/24 0833 [COMPLETED] magnesium sulfate in water (2g/50mL premix) piggyback (PREMIX) 2 g 2 g Intravenous ONE TIME Raul Burch MD 25 mL/hr at 09/04/24 0359 2 g at 09/04/24 0359 [] LIDOCAINE (PF) 20 MG/ML (2 %) INJECTION SOLUTION (Pyxis override) [COMPLETED] lidocaine (preservative free) 20 mg/mL (2 %) injection ONE TIME PRN Ginger Milton MD 10 mL at 09/04/24 1527 [COMPLETED] magnesium sulfate in water (2g/50mL premix) piggyback (PREMIX) 2 g 2 g Intravenous ONE TIME Manpreet Mills MD 25 mL/hr at 09/03/24 0405 2 g at 09/03/24 0405 [COMPLETED] calcium gluconate in NaCl (ISO-OS) 100mL piggyback (PREMIX) 2 g 2 g Intravenous ONE TIME Kathy Stapleton MD 100 mL/hr at 09/02/24 0234 2 g at 09/02/24 0234 [] traMADoL (ULTRAM) tab 50 mg 50 mg Oral Q12H PRN Katharina Welsh MD 50 mg at 09/08/24 0423 [] oxyCODONE (ROXICODONE) immediate release tab 5 mg 5 mg Oral Q6H PRN Katharina Welsh MD5 mg at 09/09/24 0925 [COMPLETED] lactulose (CHRONULAC) 20 gram/30 mL soln 20 g 20 g Oral ONE TIME Leah Hector, DO20 g at 09/01/24 2150 [COMPLETED] lidocaine (preservative free) 20 mg/mL (2 %) injection ONE TIME PRN Minda Gómez MD 10 mL at 08/30/24 1352 [COMPLETED] lidocaine (preservative free) 10 mg/mL (1 %) injection ONE TIME PRN Max Rico MD 10 mL at 08/22/24 1254 [COMPLETED] lidocaine (preservative free) 20 mg/mL (2 %) injection ONE TIME PRN Ginger Milton MD 5 mLat 08/16/24 1340 Current Outpatient Medications on File Prior to Encounter Medication Sig Dispense Refill traMADoL (ULTRAM) 50 mg tablet Take 1 Tablet by mouth Every 12 hours as needed. 6 Tablet 0 lactulose (CHRONULAC) 10 gram/15 mL solution Take 45 mL by mouth Three times a day. 1000 mL 2 methocarbamoL (ROBAXIN) 500 mg tablet Take 1 Tablet by mouth Twice a day as needed. 20 Tablet 0 rifAXIMin (XIFAXAN) 550 mg tablet Take 1 Tablet by mouth Twice a day for 90 days. 60 Tablet 2 hydrOXYzine hcl (ATARAX) 25 mg tablet Take 25 mg by mouth Twice a day as needed for Itching. traZODone (DESYREL) 50 mg tablet Take 50 mg by mouth At bedtime. spironolactone 50 mg tablet Take 2 Tabs by mouth Once Daily for 360 days. 180 Tablet 3 furosemide (LASIX) 40 mg tablet Take 1 Tablet by mouth Once Daily. 30 Tablet 3 pantoprazole (PROTONIX) [address] tablet Take 1 Tablet by mouth Once Daily for 90 days. 30 Tablet 2 lurasidone (LATUDA) 20 mg tablet Take 20 mg by mouth Once Daily. busPIRone (BUSPAR) 10 mg tablet Take 10 mg by mouth Three times a day. desvenlafaxine succinate (PRISTIQ) 50 mg tablet Take 50 mg by mouth Once Daily. Take 25mg daily gabapentin (NEURONTIN) 100 mg capsule Take 100 mg by mouth Twice a day. fluticasone propionate (FLONASE) 50 mcg/Actuation nasal spray Prather 50 mcg in each nostril Once Daily. One spray both nostrils daily ferrous sulfate 325 mg (65 mg iron) DR tablet Take 325 mg by mouth Once Daily. topiramate (TOPAMAX) 25 mg Take 25 mg by mouth Once Daily. naloxone (NARCAN) 4 mg/actuation nasal spray Prather 1 Prather in nose As directed for 1 dose. Call 911, Administer via Nasal every 3-5 min until patient becomes responsive. Repeat as many times as necessary for pt to become responsive. 2 Each 11 Patient's allergies: Allergies Allergen Reactions Wellbutrin [Bupropion] Other (See Comments) seizures Codeine Hives Physical Exam aox3 A/P: ascites. Will proceed with requested paracentesis. Discussed the potential benefits, risks, and alternatives to the proposed procedure. Ms. Hightower is in agreement with the plan of care. Signed: Max Rico MD 09/13/2024 2:31 PM [facility] Hospital Discharge instructions* Discharge Instructions* Tiffany Lovett RN - 09/13/2024 1:42 PM EST Discharge Instructions You have had a vascular and/or interventional procedure [facility]. Your procedure was a/an Paracentesis. This procedure will help assist your referring physician inthe diagnosis and/or treatment of your condition. Certain precautions and instructions (as indicated below) should be followed. Activity: It is best to rest the site for about 12 hours after the procedure. You may experience some swelling or discomfort after the procedure, however, these symptoms usuallydisappear after one or two days. You may apply ice to the site if swelling occurs. You may feel some cramping, or have a mild discharge or some bleeding. You may take a shower Diet Resume normal diet. Medications: May resume previous medications. Contact your physician (the physician who ordered the procedure) in case of: Redness, swelling or heat at procedure site. Generalized weakness, or any concerns, or changes in your condition. Should you experience excessive or abnormal bleeding, go to the nearest ER. Nausea or vomiting. Transportation home: Travel time should be less than 1 hour to a medical facility, in case a delayed complication shouldoccur. Patient teaching: Patient received verbal instructions of procedure. {yes no:[id number]} Notes: Instructions have been explained to me. I understand their content and a copy has been given to me. Patient and/or Responsible alliance party Relationship Tiffany Lovett RN 41:42 PM Nurse/Technologist Date/Time documented in this encounterThe [facility] Center12-[facility]-2024 History and physical note* Minda Gómez - 08/30/2024 1:30 PM EST History and Physical for Interventional Radiology Name: Carolina Hightower : 1975 08/30/2024 HPI: Liver cirrhosis with recurrent abdominal distention and symptomatic ascites. Past Medical History: Diagnosis Date Ascites Bipolar disorder (CMS/HCC) Chronic hepatitis C virus infection (CMS/HCC) Cirrhosis (CMS/HCC) Kidney stone Current Facility-Administered Medications on File Prior to Encounter Medication Dose Route Frequency Provider Last Rate Last Admin [COMPLETED] lidocaine (preservative free) 10 mg/mL (1 %) injection ONE TIME PRN Max Rico MD 10 mL at 08/22/24 1254 [COMPLETED] lidocaine (preservative free) 20 mg/mL (2 %) injection ONE TIME PRN Ginger Milton MD 5 mLat 08/16/24 1340 [COMPLETED] lidocaine (preservative free) 20 mg/mL (2 %) injection ONE TIME PRN Minda Gómez MD 10 mL at 08/09/24 1400 [COMPLETED] lidocaine (preservative free) 20 mg/mL (2 %) injection ONE TIME PRN Ginger Milton MD 10 mL at 08/02/24 1506 [COMPLETED] albumin human 25 % vial ONE TIME PRN Ginger Milton MD 25 g at 08/02/24 1542 Current Outpatient Medications on File Prior to Encounter Medication Sig Dispense Refill hydrOXYzine hcl (ATARAX) 25 mg tablet Take 25 mg by mouth Twice a day as needed for Itching. traZODone (DESYREL) 50 mg tablet Take 50 mg by mouth At bedtime. spironolactone 50 mg tablet Take 2 Tabs by mouth Once Daily for 360 days. 180 Tablet 3 furosemide (LASIX) 40 mg tablet Take 1 Tablet by mouth Once Daily. 30 Tablet 3 lactulose (CHRONULAC) 10 gram/15 mL solution Take 15 mL by mouth Three times a day. 1000 mL 2 pantoprazole (PROTONIX) [address] tablet Take 1 Tablet by mouth Once Daily for 90 days. 30 Tablet 2 lurasidone (LATUDA) 20 mg tablet Take 20 mg by mouth Once Daily. busPIRone (BUSPAR) 10 mg tablet Take 10 mg by mouth Three times a day. desvenlafaxine succinate (PRISTIQ) 50 mg tablet Take 50 mg by mouth Once Daily. Take 25mg daily gabapentin (NEURONTIN) 100 mg capsule Take 100 mg by mouth Twice a day. fluticasone propionate (FLONASE) 50 mcg/Actuation nasal spray Prather 50 mcg in each nostril Once Daily. One spray both nostrils daily ferrous sulfate 325 mg (65 mg iron) DR tablet Take 325 mg by mouth Once Daily. Spironolacton-Hydrochlorothiaz 50-50 mg Tab Take 50 mg by mouth Twice a day. topiramate (TOPAMAX) 25 mg Take 25 mg by mouth Once Daily. naloxone (NARCAN) 4 mg/actuation nasal spray Prather 1 Prather in nose As directed for 1 dose. Call 911, Administer via Nasal every 3-5 min until patient becomes responsive. Repeat as many times as necessary for pt to become responsive. 2 Each 11 Patient's allergies: Allergies Allergen Reactions Wellbutrin [Bupropion] Other (See Comments) seizures Codeine Hives Physical Exam A/P: Will proceed with requested paracentesis. Discussed the potential benefits, risks, and alternatives to the proposed procedure. Ms. Hightower is in agreement with the plan of care. Signed: Minda Gómez M.D., MD 08/30/2024 1:30 PM [facility] History and physical note* Minda Gómez - 08/30/2024 1:30 PM EST History and Physical for Interventional Radiology Name: Carolina Hightower : 1975 08/30/2024 HPI: Liver cirrhosis with recurrent abdominal distention and symptomatic ascites. Past Medical History: Diagnosis Date Ascites Bipolar disorder (CMS/HCC) Chronic hepatitis C virus infection (CMS/HCC) Cirrhosis (CMS/HCC) Kidney stone Current Facility-Administered Medications on File Prior to Encounter Medication Dose Route Frequency Provider Last Rate Last Admin [COMPLETED] lidocaine (preservative free) 10 mg/mL (1 %) injection ONE TIME PRN Max Rico MD 10 mL at 08/22/24 1254 [COMPLETED] lidocaine (preservative free) 20 mg/mL (2 %) injection ONE TIME PRN Ginger Milton MD 5 mLat 08/16/24 1340 [COMPLETED] lidocaine (preservative free) 20 mg/mL (2 %) injection ONE TIME PRN Minda Gómez MD 10 mL at 08/09/24 1400 [COMPLETED] lidocaine (preservative free) 20 mg/mL (2 %) injection ONE TIME PRN Ginger Milton MD 10 mL at 08/02/24 1506 [COMPLETED] albumin human 25 % vial ONE TIME PRN Yoan Ginger, MD 25 g at 08/02/24 1548 Current Outpatient Medications on File Prior to Encounter Medication Sig Dispense Refill hydrOXYzine hcl (ATARAX) 25 mg tablet Take 25 mg by mouth Twice a day as needed for Itching. traZODone (DESYREL) 50 mg tablet Take 50 mg by mouth At bedtime. spironolactone 50 mg tablet Take 2 Tabs by mouth Once Daily for 360 days. 180 Tablet 3 furosemide (LASIX) 40 mg tablet Take 1 Tablet by mouth Once Daily. 30 Tablet 3 lactulose (CHRONULAC) 10 gram/15 mL solution Take 15 mL by mouth Three times a day. 1000 mL 2 pantoprazole (PROTONIX) [address] tablet Take 1 Tablet by mouth Once Daily for 90 days. 30 Tablet 2 lurasidone (LATUDA) 20 mg tablet Take 20 mg by mouth Once Daily. busPIRone (BUSPAR) 10 mg tablet Take 10 mg by mouth Three times a day. desvenlafaxine succinate (PRISTIQ) 50 mg tablet Take 50 mg by mouth Once Daily. Take 25mg daily gabapentin (NEURONTIN) 100 mg capsule Take 100 mg by mouth Twice a day. fluticasone propionate (FLONASE) 50 mcg/Actuation nasal spray Prather 50 mcg in each nostril Once Daily. One spray both nostrils daily ferrous sulfate 325 mg (65 mg iron) DR tablet Take 325 mg by mouth Once Daily. Spironolacton-Hydrochlorothiaz 50-50 mg Tab Take 50 mg by mouth Twice a day. topiramate (TOPAMAX) 25 mg Take 25 mg by mouth Once Daily. naloxone (NARCAN) 4 mg/actuation nasal spray Prather 1 Prather in nose As directed for 1 dose. Call 911, Administer via Nasal every 3-5 min until patient becomes responsive. Repeat as many times as necessary for pt to become responsive. 2 Each 11 Patient's allergies: Allergies Allergen Reactions Wellbutrin [Bupropion] Other (See Comments) seizures Codeine Hives Physical Exam A/P: Will proceed with requested paracentesis. Discussed the potential benefits, risks, and alternatives to the proposed procedure. Ms. Hightower is in agreement with the plan of care. Signed: Minda Gómez M.D., MD 08/30/2024 1:30 PM documented in this encounterThe Medical Center12-05-2024 Hospital Discharge instructions* Discharge Instructions* Diya Ontiveros RN - 08/30/2024 1:18 PM EST Discharge Instructions You have had a vascular and/or interventional procedure [facility] at [facility]. Your procedure was a/an paracentesis. This procedure will help assist your referring physician inthe diagnosis and/or treatment of your condition. Certain precautions and instructions (as indicated below) should be followed. Activity: No lifting more than 10lbs following procedure. It is best to rest the site for about 12 hours after the procedure. You may experience some swelling or discomfort after the procedure, however, these symptoms usuallydisappear after one or two days. You may feel some cramping, or have a mild discharge or some bleeding. Limit stair climbing, bathing, and driving for 48 hours. You may take a shower Diet Resume normal diet. Medications: May resume previous medications. Contact your physician (the physician who ordered the procedure) in case of: Redness, swelling or heat at procedure site. Generalized weakness, or any concerns, or changes in your condition. Should you experience excessive or abnormal bleeding, go to the nearest ER. Nausea or vomiting. If swelling or discomfort of site continues more than 2 days after procedure. If your physician cannot be reached, then you may call the radiologist (X-Ray Physician) at [phone]. Transportation home: Travel time should be less than 1 hour to a medical facility, in case a delayed complication shouldoccur. Patient teaching: Patient received a procedure educational sheet. yes Patient received verbal instructions of procedure. yes Notes: Instructions have been explained to me. I understand their content and a copy has been given to me. Patient and/or Responsible alliance party Relationship Diya Ontiveros RN :18 PM Nurse/Technologist Date/Time * Attachments The following attachments cannot be sent through Care Everywhere. * Ascites (Discharge Care) (Ghanaian) * Paracentesis (Discharge Care) ([place]anaian) documented in this encounterThe [facility] Center11-27-2024 Note Procedure: Ultrasound guided therapeutic paracentesis Indication: Cirrhosis with ascites, abdominal distention and discomfort Complication: None immediate Description of the procedure: Written informed consent was obtained. She was placed in the supine position. The abdomen was prepped and draped in the usual sterile fashion. 1% lidocaine without epinephrine was used as a local anesthetic. A dermatotomy was created with an 11 blade. Under direct sonographic guidance using aseptic technique a 6.5 Swedish merit resolve drainage catheter was placed into the peritoneal cavity of the right lower quadrant followed by the removal 2400 ml yellow ascitic fluid. The fluid was discarded. The catheter was removed, examined and found to be intact. The dermatotomy was covered with sterile 4 x 4 and Tegaderm dressing. There were no immediate complications or patient complaints. Impression: Technically successful ultrasound-guided therapeutic paracentesis as above. [facility] History and physical note* Max Rico MD - 08/22/2024 12:46 PM EST History and Physical for Interventional Radiology Name: Carolina Hightower : 1975 08/22/2024 HPI: Ascites Past Medical History: Diagnosis Date Ascites Bipolar disorder (CMS/HCC) Chronic hepatitis C virus infection (CMS/HCC) Cirrhosis (CMS/HCC) Kidney stone Current Facility-Administered Medications on File Prior to Encounter Medication Dose Route Frequency Provider Last Rate Last Admin [COMPLETED] lidocaine (preservative free) 20 mg/mL (2 %) injection ONE TIME PRN Ginger Milton MD 5 mLat 08/16/24 1340 [COMPLETED] lidocaine (preservative free) 20 mg/mL (2 %) injection ONE TIME PRN Minda Gómez MD 10 mL at 08/09/24 1400 [COMPLETED] lidocaine (preservative free) 20 mg/mL (2 %) injection ONE TIME PRN Ginger Milton MD 10 mL at 08/02/24 1506 [COMPLETED] albumin human 25 % vial ONE TIME PRN Ginger Milton MD 25 g at 08/02/24 1542 [COMPLETED] lidocaine (preservative free) 20 mg/mL (2 %) injection ONE TIME PRMax Mcclendon MD 10 mL at 07/26/24 1625 [COMPLETED] albumin human 25 % vial ONE TIME Max Strickland MD 12.5 g at 07/26/24 1637 [COMPLETED] albumin human 25 % vial ONE TIME Max Strickland MD 12.5 g at 07/26/24 1647 Current Outpatient Medications on File Prior to Encounter Medication Sig Dispense Refill hydrOXYzine hcl (ATARAX) 25 mg tablet Take 25 mg by mouth Twice a day as needed for Itching. traZODone (DESYREL) 50 mg tablet Take 50 mg by mouth At bedtime. spironolactone 50 mg tablet Take 2 Tabs by mouth Once Daily for 360 days. 180 Tablet 3 furosemide (LASIX) 40 mg tablet Take 1 Tablet by mouth Once Daily. 30 Tablet 3 lactulose (CHRONULAC) 10 gram/15 mL solution Take 15 mL by mouth Three times a day. 1000 mL 2 pantoprazole (PROTONIX) [address] tablet Take 1 Tablet by mouth Once Daily for 90 days. 30 Tablet 2 lurasidone (LATUDA) 20 mg tablet Take 20 mg by mouth Once Daily. busPIRone (BUSPAR) 10 mg tablet Take 10 mg by mouth Three times a day. desvenlafaxine succinate (PRISTIQ) 50 mg tablet Take 50 mg by mouth Once Daily. Take 25mg daily gabapentin (NEURONTIN) 100 mg capsule Take 100 mg by mouth Twice a day. fluticasone propionate (FLONASE) 50 mcg/Actuation nasal spray Prather 50 mcg in each nostril Once Daily. One spray both nostrils daily ferrous sulfate 325 mg (65 mg iron) DR tablet Take 325 mg by mouth Once Daily. Spironolacton-Hydrochlorothiaz 50-50 mg Tab Take 50 mg by mouth Twice a day. topiramate (TOPAMAX) 25 mg Take 25 mg by mouth Once Daily. naloxone (NARCAN) 4 mg/actuation nasal spray Prather 1 Prather in nose As directed for 1 dose. Call 911, Administer via Nasal every 3-5 min until patient becomes responsive. Repeat as many times as necessary for pt to become responsive. 2 Each 11 Patient's allergies: Allergies Allergen Reactions Wellbutrin [Bupropion] Other (See Comments) seizures Codeine Hives Physical Exam A/O x 3 A/P: Ascites. Will proceed with requested paracentesis. Discussed the potential benefits, risks, and alternatives to the proposed procedure. Ms. Hightower is in agreement with the plan of care. Signed: Max Rico MD 08/22/2024 12:46 PM [facility] Work Phone: [phone]) 716-938111-27-2024 History and physical note* Max Rico MD - 08/22/2024 12:46 PM EST History and Physical for Interventional Radiology Name: Carolina Hightower : 1975 08/22/2024 HPI: Ascites Past Medical History: Diagnosis Date Ascites Bipolar disorder (CMS/HCC) Chronic hepatitis C virus infection (CMS/HCC) Cirrhosis (CMS/HCC) Kidney stone Current Facility-Administered Medications on File Prior to Encounter Medication Dose Route Frequency Provider Last Rate Last Admin [COMPLETED] lidocaine (preservative free) 20 mg/mL (2 %) injection ONE TIME PRN Ginger Milton MD 5 mLat 08/16/24 1340 [COMPLETED] lidocaine (preservative free) 20 mg/mL (2 %) injection ONE TIME PRN Minda Gómez MD 10 mL at 08/09/24 1400 [COMPLETED] lidocaine (preservative free) 20 mg/mL (2 %) injection ONE TIME PRN Ginger Milton MD 10 mL at 08/02/24 1506 [COMPLETED] albumin human 25 % vial ONE TIME PRN Ginger Milton MD 25 g at 08/02/24 1542 [COMPLETED] lidocaine (preservative free) 20 mg/mL (2 %) injection ONE TIME PRN Max Rico MD 10 mL at 07/26/24 1625 [COMPLETED] albumin human 25 % vial ONE TIME PRN Max Rico MD 12.5 g at 07/26/24 1637 [COMPLETED] albumin human 25 % vial ONE TIME PRN Max Rico MD 12.5 g at 07/26/24 1647 Current Outpatient Medications on File Prior to Encounter Medication Sig Dispense Refill hydrOXYzine hcl (ATARAX) 25 mg tablet Take 25 mg by mouth Twice a day as needed for Itching. traZODone (DESYREL) 50 mg tablet Take 50 mg by mouth At bedtime. spironolactone 50 mg tablet Take 2 Tabs by mouth Once Daily for 360 days. 180 Tablet 3 furosemide (LASIX) 40 mg tablet Take 1 Tablet by mouth Once Daily. 30 Tablet 3 lactulose (CHRONULAC) 10 gram/15 mL solution Take 15 mL by mouth Three times a day. 1000 mL 2 pantoprazole (PROTONIX) [address] tablet Take 1 Tablet by mouth Once Daily for 90 days. 30 Tablet 2 lurasidone (LATUDA) 20 mg tablet Take 20 mg by mouth Once Daily. busPIRone (BUSPAR) 10 mg tablet Take 10 mg by mouth Three times a day. desvenlafaxine succinate (PRISTIQ) 50 mg tablet Take 50 mg by mouth Once Daily. Take 25mg daily gabapentin (NEURONTIN) 100 mg capsule Take 100 mg by mouth Twice a day. fluticasone propionate (FLONASE) 50 mcg/Actuation nasal spray Prather 50 mcg in each nostril Once Daily. One spray both nostrils daily ferrous sulfate 325 mg (65 mg iron) DR tablet Take 325 mg by mouth Once Daily. Spironolacton-Hydrochlorothiaz 50-50 mg Tab Take 50 mg by mouth Twice a day. topiramate (TOPAMAX) 25 mg Take 25 mg by mouth Once Daily. naloxone (NARCAN) 4 mg/actuation nasal spray Prather 1 Prather in nose As directed for 1 dose. Call 911, Administer via Nasal every 3-5 min until patient becomes responsive. Repeat as many times as necessary for pt to become responsive. 2 Each 11 Patient's allergies: Allergies Allergen Reactions Wellbutrin [Bupropion] Other (See Comments) seizures Codeine Hives Physical Exam A/O x 3 A/P: Ascites. Will proceed with requested paracentesis. Discussed the potential benefits, risks, and alternatives to the proposed procedure. Ms. Hightower is in agreement with the plan of care. Signed: Max Rico MD 08/22/2024 12:46 PM documented in this [facility]11-27-2024 Hospital Discharge instructions* Discharge Instructions* Mike Horner - 08/22/2024 12:36 PM EST Drainage Procedure (Paracentesis) Post Procedure Discharge Instructions What to expect after your procedure: You may experience some cramping, swelling or discomfort immediately after the procedure. These symptoms usually disappear in one or two days. Bruising may continue for 7-10 days. What you need to do: It is best to rest the site for the next 12 hours. You may continue your normal diet with any restrictions as prior to your procedure. You may resume your medications as prior to procedure. Inspect your site daily. Keep drainage site clean and dry. You may remove your dressing 48 hours (2 days). You may take your regular prescription medications as you usually do. You may continue your normal diet, the same as before your procedure. Continue any diet or fluid restriction as ordered by your physician. You will need to have someone to drive you home from the hospital upon discharge. What not to do: No heavy lifting or straining for 48 hours. Limit bathing for 48 hours or until dressing is removed. Do not apply lotions or ointment to site, unless instructed by your physician. When to contact your physician (the Physician who ordered the procedure): Any signs of infection, fever greater than 101.5, warmth to touch, drainage, redness or swelling a the site. If swelling or discomfort at site continues for more than 2 days after procedure. Excessive or abnormal bleeding. If bleeding occurs, apply pressure to site with fingertips for 10 - 15 minutes. If bleeding does not stop go to nearest Emergency Room. Any chest pain or shortness of breath, please go to nearest Emergency Room. New onset of generalized weakness. Nausea or vomiting. Notes: Your follow up appointment has been made for at . If this appointment needs to be cancelled or rescheduled please call the nurse at [phone]. If you have any questions or concerns about your procedure please call: [phone] or [phone]. These instructions have been explained to me. I understand their content and have received a copy. Sign: Witness: Thank you for choosing [facility] Vascular and Interventional Department [facility] History and physical note* Ginger Milton MD - 08/16/2024 1:20 PM EST Images from the original note were not included. History and Physical for Interventional Radiology Name: Carolina Hightower : 1975 08/16/2024 HPI: Recurrent symptomatic ascites Past Medical History: Diagnosis Date Ascites Bipolar disorder (CMS/HCC) Chronic hepatitis C virus infection (CMS/HCC) Cirrhosis (CMS/HCC) Kidney stone Current Facility-Administered Medications on File Prior to Encounter Medication Dose Route Frequency Provider Last Rate Last Admin [COMPLETED] lidocaine (preservative free) 20 mg/mL (2 %) injection ONE TIME PRN Minda Gómez MD 10 mL at 08/09/24 1400 [COMPLETED] lidocaine (preservative free) 20 mg/mL (2 %) injection ONE TIME PRN Gigner Milton MD 10 mL at 08/02/24 1506 [COMPLETED] albumin human 25 % vial ONE TIME PRN Ginger Milton MD 25 g at 08/02/24 1542 [COMPLETED] lidocaine (preservative free) 20 mg/mL (2 %) injection ONE TIME PRN Max Rico MD 10 mL at 07/26/24 1625 [COMPLETED] albumin human 25 % vial ONE TIME PRN Max Rico MD 12.5 g at 07/26/24 1637 [COMPLETED] albumin human 25 % vial ONE TIME PRN Max Rico MD 12.5 g at 07/26/24 1647 [COMPLETED] lidocaine (preservative free) 20 mg/mL (2 %) injection ONE TIME PRN Minda Gómez MD 10 mL at 07/19/24 1616 [COMPLETED] albumin human 25 % vial ONE TIME PRN Minda Gómez MD 12.5 g at 07/19/24 1704 [COMPLETED] albumin human 25 % vial ONE TIME PRN Minda Gmóez MD 12.5 g at 07/19/24 1708 Current Outpatient Medications on File Prior to Encounter Medication Sig Dispense Refill hydrOXYzine hcl (ATARAX) 25 mg tablet Take 25 mg by mouth Twice a day as needed for Itching. traZODone (DESYREL) 50 mg tablet Take 50 mg by mouth At bedtime. spironolactone 50 mg tablet Take 2 Tabs by mouth Once Daily for 360 days. 180 Tablet 3 furosemide (LASIX) 40 mg tablet Take 1 Tablet by mouth Once Daily. 30 Tablet 3 lactulose (CHRONULAC) 10 gram/15 mL solution Take 15 mL by mouth Three times a day. 1000 mL 2 pantoprazole (PROTONIX) [address] tablet Take 1 Tablet by mouth Once Daily for 90 days. 30 Tablet 2 lurasidone (LATUDA) 20 mg tablet Take 20 mg by mouth Once Daily. busPIRone (BUSPAR) 10 mg tablet Take 10 mg by mouth Three times a day. desvenlafaxine succinate (PRISTIQ) 50 mg tablet Take 50 mg by mouth Once Daily. Take 25mg daily gabapentin (NEURONTIN) 100 mg capsule Take 100 mg by mouth Twice a day. fluticasone propionate (FLONASE) 50 mcg/Actuation nasal spray Prather 50 mcg in each nostril Once Daily. One spray both nostrils daily ferrous sulfate 325 mg (65 mg iron) DR tablet Take 325 mg by mouth Once Daily. Spironolacton-Hydrochlorothiaz 50-50 mg Tab Take 50 mg by mouth Twice a day. topiramate (TOPAMAX) 25 mg Take 25 mg by mouth Once Daily. naloxone (NARCAN) 4 mg/actuation nasal spray Prather 1 Prather in nose As directed for 1 dose. Call 911, Administer via Nasal every 3-5 min until patient becomes responsive. Repeat as many times as necessary for pt to become responsive. 2 Each 11 Patient's allergies: Allergies Allergen Reactions Wellbutrin [Bupropion] Other (See Comments) seizures Codeine Hives Physical Exam HENT: Head: Normocephalic. Cardiovascular: Rate and Rhythm: Normal rate. Pulmonary: Effort: Pulmonary effort is normal. Abdominal: General: There is distension. Musculoskeletal: General: Normal range of motion. Skin: General: Skin is warm. Neurological: Mental Status: She is alert. Mental status is at baseline. Psychiatric: Mood and Affect: Mood normal. A/P: Ascites. Will proceed with requested paracentesis. Discussed the potential benefits, risks, and alternatives to the proposed procedure. Ms. Hightower is in agreement with the plan of care. Signed: Ginger Milton M.D. 08/16/2024 1:20 PM [facility] Work Phone: 1(540) 960-216511-21-2024 History and physical note* Ginger Milton MD - 08/16/2024 1:20 PM EST Images from the original note were not included. History and Physical for Interventional Radiology Name: Carolina Hightower : 1975 08/16/2024 HPI: Recurrent symptomatic ascites Past Medical History: Diagnosis Date Ascites Bipolar disorder (CMS/HCC) Chronic hepatitis C virus infection (CMS/HCC) Cirrhosis (CMS/HCC) Kidney stone Current Facility-Administered Medications on File Prior to Encounter Medication Dose Route Frequency Provider Last Rate Last Admin [COMPLETED] lidocaine (preservative free) 20 mg/mL (2 %) injection ONE TIME PRN Minda Gómez MD 10 mL at 08/09/24 1400 [COMPLETED] lidocaine (preservative free) 20 mg/mL (2 %) injection ONE TIME PRN Ginger Milton MD 10 mL at 08/02/24 1506 [COMPLETED] albumin human 25 % vial ONE TIME PRN Ginger Milton MD 25 g at 08/02/24 1542 [COMPLETED] lidocaine (preservative free) 20 mg/mL (2 %) injection ONE TIME PRN Max Rico MD 10 mL at 07/26/24 1625 [COMPLETED] albumin human 25 % vial ONE TIME PRN Max Rico MD 12.5 g at 07/26/24 1637 [COMPLETED] albumin human 25 % vial ONE TIME PRN Max Rico MD 12.5 g at 07/26/24 1647 [COMPLETED] lidocaine (preservative free) 20 mg/mL (2 %) injection ONE TIME PRN Minda Gómez MD 10 mL at 07/19/24 1616 [COMPLETED] albumin human 25 % vial ONE TIME PRMinda Lima MD 12.5 g at 07/19/24 1704 [COMPLETED] albumin human 25 % vial ONE TIME PRN Minda Gómez MD 12.5 g at 07/19/24 1708 Current Outpatient Medications on File Prior to Encounter Medication Sig Dispense Refill hydrOXYzine hcl (ATARAX) 25 mg tablet Take 25 mg by mouth Twice a day as needed for Itching. traZODone (DESYREL) 50 mg tablet Take 50 mg by mouth At bedtime. spironolactone 50 mg tablet Take 2 Tabs by mouth Once Daily for 360 days. 180 Tablet 3 furosemide (LASIX) 40 mg tablet Take 1 Tablet by mouth Once Daily. 30 Tablet 3 lactulose (CHRONULAC) 10 gram/15 mL solution Take 15 mL by mouth Three times a day. 1000 mL 2 pantoprazole (PROTONIX) [address] tablet Take 1 Tablet by mouth Once Daily for 90 days. 30 Tablet 2 lurasidone (LATUDA) 20 mg tablet Take 20 mg by mouth Once Daily. busPIRone (BUSPAR) 10 mg tablet Take 10 mg by mouth Three times a day. desvenlafaxine succinate (PRISTIQ) 50 mg tablet Take 50 mg by mouth Once Daily. Take 25mg daily gabapentin (NEURONTIN) 100 mg capsule Take 100 mg by mouth Twice a day. fluticasone propionate (FLONASE) 50 mcg/Actuation nasal spray Prather 50 mcg in each nostril Once Daily. One spray both nostrils daily ferrous sulfate 325 mg (65 mg iron) DR tablet Take 325 mg by mouth Once Daily. Spironolacton-Hydrochlorothiaz 50-50 mg Tab Take 50 mg by mouth Twice a day. topiramate (TOPAMAX) 25 mg Take 25 mg by mouth Once Daily. naloxone (NARCAN) 4 mg/actuation nasal spray Prather 1 Prather in nose As directed for 1 dose. Call 911, Administer via Nasal every 3-5 min until patient becomes responsive. Repeat as many times as necessary for pt to become responsive. 2 Each 11 Patient's allergies: Allergies Allergen Reactions Wellbutrin [Bupropion] Other (See Comments) seizures Codeine Hives Physical Exam HENT: Head: Normocephalic. Cardiovascular: Rate and Rhythm: Normal rate. Pulmonary: Effort: Pulmonary effort is normal. Abdominal: General: There is distension. Musculoskeletal: General: Normal range of motion. Skin: General: Skin is warm. Neurological: Mental Status: She is alert. Mental status is at baseline. Psychiatric: Mood and Affect: Mood normal. A/P: Ascites. Will proceed with requested paracentesis. Discussed the potential benefits, risks, and alternatives to the proposed procedure. Ms. Hightower is in agreement with the plan of care. Signed: Ginger Milton M.D. 08/16/2024 1:20 PM documented in this [facility]11-21-2024 Hospital Discharge instructions* Discharge Instructions* Luci Victoria RN - 08/16/2024 12:55 PM EST Drainage Procedure (Paracentesis) Post Procedure Discharge Instructions What to expect after your procedure: You may experience some cramping, swelling or discomfort immediately after the procedure. These symptoms usually disappear in one or two days. Bruising may continue for 7-10 days. What you need to do: It is best to rest the site for the next 12 hours. You may continue your normal diet with any restrictions as prior to your procedure. You may resume your medications as prior to procedure. Inspect your site daily. Keep drainage site clean and dry. You may remove your dressing 48 hours (2 days). You may take your regular prescription medications as you usually do. You may continue your normal diet, the same as before your procedure. Continue any diet or fluid restriction as ordered by your physician. You will need to have someone to drive you home from the hospital upon discharge. What not to do: No heavy lifting or straining for 48 hours. Limit bathing for 48 hours or until dressing is removed. Do not apply lotions or ointment to site, unless instructed by your physician. When to contact your physician (the Physician who ordered the procedure): Any signs of infection, fever greater than 101.5, warmth to touch, drainage, redness or swelling a the site. If swelling or discomfort at site continues for more than 2 days after procedure. Excessive or abnormal bleeding. If bleeding occurs, apply pressure to site with fingertips for 10 - 15 minutes. If bleeding does not stop go to nearest Emergency Room. Any chest pain or shortness of breath, please go to nearest Emergency Room. New onset of generalized weakness. Nausea or vomiting. Notes: Your follow up appointment has been made for Aug 22 at 1:30 If this appointment needs to be cancelled or rescheduled please call the nurse at [phone]. If you have any questions or concerns about your procedure please call: [phone] or [phone]. These instructions have been explained to me. I understand their content and have received a copy. Sign: Witness: Thank you for choosing [facility] Vascular and Interventional Department [facility] Hospital Discharge instructions* Discharge Instructions* Mike Horner - 08/09/2024 1:40 PM EST Drainage Procedure (Paracentesis) Post Procedure Discharge Instructions What to expect after your procedure: You may experience some cramping, swelling or discomfort immediately after the procedure. These symptoms usually disappear in one or two days. Bruising may continue for 7-10 days. What you need to do: It is best to rest the site for the next 12 hours. You may continue your normal diet with any restrictions as prior to your procedure. You may resume your medications as prior to procedure. Inspect your site daily. Keep drainage site clean and dry. You may remove your dressing 48 hours (2 days). You may take your regular prescription medications as you usually do. You may continue your normal diet, the same as before your procedure. Continue any diet or fluid restriction as ordered by your physician. You will need to have someone to drive you home from the hospital upon discharge. What not to do: No heavy lifting or straining for 48 hours. Limit bathing for 48 hours or until dressing is removed. Do not apply lotions or ointment to site, unless instructed by your physician. When to contact your physician (the Physician who ordered the procedure): Any signs of infection, fever greater than 101.5, warmth to touch, drainage, redness or swelling a the site. If swelling or discomfort at site continues for more than 2 days after procedure. Excessive or abnormal bleeding. If bleeding occurs, apply pressure to site with fingertips for 10 - 15 minutes. If bleeding does not stop go to nearest Emergency Room. Any chest pain or shortness of breath, please go to nearest Emergency Room. New onset of generalized weakness. Nausea or vomiting. Notes: Your follow up appointment has been made for at . If this appointment needs to be cancelled or rescheduled please call the nurse at [phone]. If you have any questions or concerns about your procedure please call: [phone] or [phone]. These instructions have been explained to me. I understand their content and have received a copy. Sign: Witness: Thank you for choosing [facility] Vascular and Interventional Department [facility]24 History and physical note* Minda Gómez MD - 08/09/2024 1:25 PM EST History and Physical for Interventional Radiology Name: Carolina Hightower : 1975 08/09/2024 HPI: Liver cirrhosis with recurrent abdominal distention and symptomatic ascites. Past Medical History: Diagnosis Date Ascites Bipolar disorder (CMS/HCC) Chronic hepatitis C virus infection (CMS/HCC) Cirrhosis (CMS/HCC) Kidney stone Current Facility-Administered Medications on File Prior to Encounter Medication Dose Route Frequency Provider Last Rate Last Admin [COMPLETED] lidocaine (preservative free) 20 mg/mL (2 %) injection ONE TIME PRN Ginger Milton MD 10 mL at 08/02/24 1506 [COMPLETED] albumin human 25 % vial ONE TIME PRN Ginger Milton MD 25 g at 08/02/24 1542 [COMPLETED] lidocaine (preservative free) 20 mg/mL (2 %) injection ONE TIME PRN Max Rico MD 10 mL at 07/26/24 1625 [COMPLETED] albumin human 25 % vial ONE TIME PRN Max Rico MD 12.5 g at 07/26/24 1637 [COMPLETED] albumin human 25 % vial ONE TIME PRN Max Rico MD 12.5 g at 07/26/24 1647 [COMPLETED] lidocaine (preservative free) 20 mg/mL (2 %) injection ONE TIME PRN Minda Gómez MD 10 mL at 07/19/24 1616 [COMPLETED] albumin human 25 % vial ONE TIME PRN Minda Gómez MD 12.5 g at 07/19/24 1704 [COMPLETED] albumin human 25 % vial ONE TIME PRN Minda Gómez MD 12.5 g at 07/19/24 1708 Current Outpatient Medications on File Prior to Encounter Medication Sig Dispense Refill hydrOXYzine hcl (ATARAX) 25 mg tablet Take 25 mg by mouth Twice a day as needed for Itching. traZODone (DESYREL) 50 mg tablet Take 50 mg by mouth At bedtime. spironolactone 50 mg tablet Take 2 Tabs by mouth Once Daily for 360 days. 180 Tablet 3 furosemide (LASIX) 40 mg tablet Take 1 Tablet by mouth Once Daily. 30 Tablet 3 lactulose (CHRONULAC) 10 gram/15 mL solution Take 15 mL by mouth Three times a day. 1000 mL 2 pantoprazole (PROTONIX) [address] tablet Take 1 Tablet by mouth Once Daily for 90 days. 30 Tablet 2 lurasidone (LATUDA) 20 mg tablet Take 20 mg by mouth Once Daily. busPIRone (BUSPAR) 10 mg tablet Take 10 mg by mouth Three times a day. desvenlafaxine succinate (PRISTIQ) 50 mg tablet Take 50 mg by mouth Once Daily. Take 25mg daily gabapentin (NEURONTIN) 100 mg capsule Take 100 mg by mouth Twice a day. fluticasone propionate (FLONASE) 50 mcg/Actuation nasal spray Prather 50 mcg in each nostril Once Daily. One spray both nostrils daily ferrous sulfate 325 mg (65 mg iron) DR tablet Take 325 mg by mouth Once Daily. Spironolacton-Hydrochlorothiaz 50-50 mg Tab Take 50 mg by mouth Twice a day. topiramate (TOPAMAX) 25 mg Take 25 mg by mouth Once Daily. naloxone (NARCAN) 4 mg/actuation nasal spray Prather 1 Prather in nose As directed for 1 dose. Call 911, Administer via Nasal every 3-5 min until patient becomes responsive. Repeat as many times as necessary for pt to become responsive. 2 Each 11 Patient's allergies: Allergies Allergen Reactions Wellbutrin [Bupropion] Other (See Comments) seizures Codeine Hives Physical Exam Constitutional: Appearance: Normal appearance. HENT: Head: Normocephalic and atraumatic. Cardiovascular: Rate and Rhythm: Normal rate. Pulses: Normal pulses. Pulmonary: Effort: Pulmonary effort is normal. Abdominal: General: There is distension. Tenderness: There is no abdominal tenderness. There is no guarding. Musculoskeletal: General: Normal range of motion. Cervical back: Normal range of motion and neck supple. Skin: General: Skin is warm and dry. Neurological: Mental Status: She is alert. A/P: Will proceed with requested paracentesis. Discussed the potential benefits, risks, and alternatives to the proposed procedure. Ms. Hightower is in agreement with the plan of care. Signed: Minda Gómez M.D., MD 08/09/2024 1:26 PM [facility] Work Phone: 1(813) 470-379211-14-2024 History and physical note* Minda Gómez MD - 08/09/2024 1:25 PM EST History and Physical for Interventional Radiology Name: Carolina Hightower : 1975 08/09/2024 HPI: Liver cirrhosis with recurrent abdominal distention and symptomatic ascites. Past Medical History: Diagnosis Date Ascites Bipolar disorder (CMS/HCC) Chronic hepatitis C virus infection (CMS/HCC) Cirrhosis (CMS/HCC) Kidney stone Current Facility-Administered Medications on File Prior to Encounter Medication Dose Route Frequency Provider Last Rate Last Admin [COMPLETED] lidocaine (preservative free) 20 mg/mL (2 %) injection ONE TIME PRN Ginger Milton MD 10 mL at 08/02/24 1506 [COMPLETED] albumin human 25 % vial ONE TIME PRN Ginger Milton MD 25 g at 08/02/24 1542 [COMPLETED] lidocaine (preservative free) 20 mg/mL (2 %) injection ONE TIME PRN Max Rico MD 10 mL at 07/26/24 1625 [COMPLETED] albumin human 25 % vial ONE TIME PRN Max Rico MD 12.5 g at 07/26/24 1637 [COMPLETED] albumin human 25 % vial ONE TIME PRN Max Rico MD 12.5 g at 07/26/24 1647 [COMPLETED] lidocaine (preservative free) 20 mg/mL (2 %) injection ONE TIME PRN Minda Gómez MD 10 mL at 07/19/24 1616 [COMPLETED] albumin human 25 % vial ONE TIME PRN Minda Gómez MD 12.5 g at 07/19/24 1704 [COMPLETED] albumin human 25 % vial ONE TIME PRN Minda Gómez MD 12.5 g at 07/19/24 1708 Current Outpatient Medications on File Prior to Encounter Medication Sig Dispense Refill hydrOXYzine hcl (ATARAX) 25 mg tablet Take 25 mg by mouth Twice a day as needed for Itching. traZODone (DESYREL) 50 mg tablet Take 50 mg by mouth At bedtime. spironolactone 50 mg tablet Take 2 Tabs by mouth Once Daily for 360 days. 180 Tablet 3 furosemide (LASIX) 40 mg tablet Take 1 Tablet by mouth Once Daily. 30 Tablet 3 lactulose (CHRONULAC) 10 gram/15 mL solution Take 15 mL by mouth Three times a day. 1000 mL 2 pantoprazole (PROTONIX) [address] tablet Take 1 Tablet by mouth Once Daily for 90 days. 30 Tablet 2 lurasidone (LATUDA) 20 mg tablet Take 20 mg by mouth Once Daily. busPIRone (BUSPAR) 10 mg tablet Take 10 mg by mouth Three times a day. desvenlafaxine succinate (PRISTIQ) 50 mg tablet Take 50 mg by mouth Once Daily. Take 25mg daily gabapentin (NEURONTIN) 100 mg capsule Take 100 mg by mouth Twice a day. fluticasone propionate (FLONASE) 50 mcg/Actuation nasal spray Prather 50 mcg in each nostril Once Daily. One spray both nostrils daily ferrous sulfate 325 mg (65 mg iron) DR tablet Take 325 mg by mouth Once Daily. Spironolacton-Hydrochlorothiaz 50-50 mg Tab Take 50 mg by mouth Twice a day. topiramate (TOPAMAX) 25 mg Take 25 mg by mouth Once Daily. naloxone (NARCAN) 4 mg/actuation nasal spray Prather 1 Prather in nose As directed for 1 dose. Call 911, Administer via Nasal every 3-5 min until patient becomes responsive. Repeat as many times as necessary for pt to become responsive. 2 Each 11 Patient's allergies: Allergies Allergen Reactions Wellbutrin [Bupropion] Other (See Comments) seizures Codeine Hives Physical Exam Constitutional: Appearance: Normal appearance. HENT: Head: Normocephalic and atraumatic. Cardiovascular: Rate and Rhythm: Normal rate. Pulses: Normal pulses. Pulmonary: Effort: Pulmonary effort is normal. Abdominal: General: There is distension. Tenderness: There is no abdominal tenderness. There is no guarding. Musculoskeletal: General: Normal range of motion. Cervical back: Normal range of motion and neck supple. Skin: General: Skin is warm and dry. Neurological: Mental Status: She is alert. A/P: Will proceed with requested paracentesis. Discussed the potential benefits, risks, and alternatives to the proposed procedure. Ms. Hightower is in agreement with the plan of care. Signed: Minda Gómez M.D., MD 08/09/2024 1:26 PM documented in this [facility]11-07-2024 History and physical note* Ginger Milton MD - 08/02/2024 2:59 PM EST Images from the original note were not included. History and Physical for Interventional Radiology Name: Carolina Hightower : 1975 08/02/2024 HPI: Recurrent large volume ascites Past Medical History: Diagnosis Date Ascites Bipolar disorder (CMS/HCC) Chronic hepatitis C virus infection (CMS/HCC) Cirrhosis (CMS/HCC) Kidney stone Current Facility-Administered Medications on File Prior to Encounter Medication Dose Route Frequency Provider Last Rate Last Admin [COMPLETED] lidocaine (preservative free) 20 mg/mL (2 %) injection ONE TIME PRN Max Rico MD 10 mL at 07/26/24 1625 [COMPLETED] albumin human 25 % vial ONE TIME PRN Max Rico MD 12.5 g at 07/26/24 1637 [COMPLETED] albumin human 25 % vial ONE TIME PRN Max Rico MD 12.5 g at 07/26/24 1647 [COMPLETED] lidocaine (preservative free) 20 mg/mL (2 %) injection ONE TIME PRN Minda Gómez MD 10 mL at 07/19/24 1616 [COMPLETED] albumin human 25 % vial ONE TIME PRN Minda Gómez MD 12.5 g at 07/19/24 1704 [COMPLETED] albumin human 25 % vial ONE TIME PRN Minda Gómez MD 12.5 g at 07/19/24 1708 [COMPLETED] hydrOXYzine pamoate (VISTARIL) cap 25 mg 25 mg Oral ONE TIME Tommie New MD 25 mg at 07/09/24 0302 [COMPLETED] lidocaine (preservative free) 10 mg/mL (1 %) injection ONE TIME PRN Ginger Milton MD 10 mL at 07/09/24 0833 [COMPLETED] albumin human 25 % vial ONE TIME PRN Ginger Milton MD 37.5 g at 07/09/24 0909 [COMPLETED] morphine injection 4 mg 4 mg Intravenous ONE TIME Lambert Veliz DO 4 mg at 07/08/24 192 [COMPLETED] ondansetron hcl (PF) (ZOFRAN) injection 4 mg 4 mg Intravenous ONE TIME Lambert Veliz DO 4 mg at 07/08/241922 Current Outpatient Medications on File Prior to Encounter Medication Sig Dispense Refill hydrOXYzine hcl (ATARAX) 25 mg tablet Take 25 mg by mouth Twice a day as needed for Itching. traZODone (DESYREL) 50 mg tablet Take 50 mg by mouth At bedtime. spironolactone 50 mg tablet Take 2 Tabs by mouth Once Daily for 360 days. 180 Tablet 3 furosemide (LASIX) 40 mg tablet Take 1 Tablet by mouth Once Daily. 30 Tablet 3 lactulose (CHRONULAC) 10 gram/15 mL solution Take 15 mL by mouth Three times a day. 1000 mL 2 pantoprazole (PROTONIX) [address] tablet Take 1 Tablet by mouth Once Daily for 90 days. 30 Tablet 2 lurasidone (LATUDA) 20 mg tablet Take 20 mg by mouth Once Daily. busPIRone (BUSPAR) 10 mg tablet Take 10 mg by mouth Three times a day. desvenlafaxine succinate (PRISTIQ) 50 mg tablet Take 50 mg by mouth Once Daily. Take 25mg daily gabapentin (NEURONTIN) 100 mg capsule Take 100 mg by mouth Twice a day. fluticasone propionate (FLONASE) 50 mcg/Actuation nasal spray Prather 50 mcg in each nostril Once Daily. One spray both nostrils daily ferrous sulfate 325 mg (65 mg iron) DR tablet Take 325 mg by mouth Once Daily. Spironolacton-Hydrochlorothiaz 50-50 mg Tab Take 50 mg by mouth Twice a day. topiramate (TOPAMAX) 25 mg Take 25 mg by mouth Once Daily. naloxone (NARCAN) 4 mg/actuation nasal spray Prather 1 Prather in nose As directed for 1 dose. Call 911, Administer via Nasal every 3-5 min until patient becomes responsive. Repeat as many times as necessary for pt to become responsive. 2 Each 11 Patient's allergies: Allergies Allergen Reactions Wellbutrin [Bupropion] Other (See Comments) seizures Codeine Hives Physical Exam Cardiovascular: Rate and Rhythm: Normal rate. Pulmonary: Effort: Pulmonary effort is normal. Abdominal: General: There is distension. Musculoskeletal: General: Normal range of motion. Skin: General: Skin is warm. Neurological: Mental Status: She is alert. Mental status is at baseline. Psychiatric: Mood and Affect: Mood normal. A/P: Ascites. Will proceed with requested paracentesis. Discussed the potential benefits, risks, and alternatives to the proposed procedure. Ms. Hightower is in agreement with the plan of care. Signed: Ginger Milton M.D. 08/02/2024 2:59 PM [facility] Work Phone: 1(468) 279-431311-07-2024 History and physical note* Ginger Milton MD - 08/02/2024 2:59 PM EST Images from the original note were not included. History and Physical for Interventional Radiology Name: Carolina Hightower : 1975 08/02/2024 HPI: Recurrent large volume ascites Past Medical History: Diagnosis Date Ascites Bipolar disorder (CMS/HCC) Chronic hepatitis C virus infection (CMS/HCC) Cirrhosis (CMS/HCC) Kidney stone Current Facility-Administered Medications on File Prior to Encounter Medication Dose Route Frequency Provider Last Rate Last Admin [COMPLETED] lidocaine (preservative free) 20 mg/mL (2 %) injection ONE TIME PRN Max Rico MD 10 mL at 07/26/24 1625 [COMPLETED] albumin human 25 % vial ONE TIME PRN Max Rico MD 12.5 g at 07/26/24 1637 [COMPLETED] albumin human 25 % vial ONE TIME PRN Max Rico MD 12.5 g at 07/26/24 1647 [COMPLETED] lidocaine (preservative free) 20 mg/mL (2 %) injection ONE TIME PRN Minda Gómez MD 10 mL at 07/19/24 1616 [COMPLETED] albumin human 25 % vial ONE TIME PRN Minda Gómez MD 12.5 g at 07/19/24 1704 [COMPLETED] albumin human 25 % vial ONE TIME PRN Minda Gómez MD 12.5 g at 07/19/24 1708 [COMPLETED] hydrOXYzine pamoate (VISTARIL) cap 25 mg 25 mg Oral ONE TIME Tommie New MD 25 mg at 07/09/24 0302 [COMPLETED] lidocaine (preservative free) 10 mg/mL (1 %) injection ONE TIME PRN Ginger Milton MD 10 mL at 07/09/24 0833 [COMPLETED] albumin human 25 % vial ONE TIME PRN Ginger Milton MD 37.5 g at 07/09/24 0909 [COMPLETED] morphine injection 4 mg 4 mg Intravenous ONE TIME Lambert Veliz DO 4 mg at 07/08/24 192 [COMPLETED] ondansetron hcl (PF) (ZOFRAN) injection 4 mg 4 mg Intravenous ONE TIME Lambert Veliz DO 4 mg at 07/08/241922 Current Outpatient Medications on File Prior to Encounter Medication Sig Dispense Refill hydrOXYzine hcl (ATARAX) 25 mg tablet Take 25 mg by mouth Twice a day as needed for Itching. traZODone (DESYREL) 50 mg tablet Take 50 mg by mouth At bedtime. spironolactone 50 mg tablet Take 2 Tabs by mouth Once Daily for 360 days. 180 Tablet 3 furosemide (LASIX) 40 mg tablet Take 1 Tablet by mouth Once Daily. 30 Tablet 3 lactulose (CHRONULAC) 10 gram/15 mL solution Take 15 mL by mouth Three times a day. 1000 mL 2 pantoprazole (PROTONIX) [address] tablet Take 1 Tablet by mouth Once Daily for 90 days. 30 Tablet 2 lurasidone (LATUDA) 20 mg tablet Take 20 mg by mouth Once Daily. busPIRone (BUSPAR) 10 mg tablet Take 10 mg by mouth Three times a day. desvenlafaxine succinate (PRISTIQ) 50 mg tablet Take 50 mg by mouth Once Daily. Take 25mg daily gabapentin (NEURONTIN) 100 mg capsule Take 100 mg by mouth Twice a day. fluticasone propionate (FLONASE) 50 mcg/Actuation nasal spray Prather 50 mcg in each nostril Once Daily. One spray both nostrils daily ferrous sulfate 325 mg (65 mg iron) DR tablet Take 325 mg by mouth Once Daily. Spironolacton-Hydrochlorothiaz 50-50 mg Tab Take 50 mg by mouth Twice a day. topiramate (TOPAMAX) 25 mg Take 25 mg by mouth Once Daily. naloxone (NARCAN) 4 mg/actuation nasal spray Prather 1 Prather in nose As directed for 1 dose. Call 911, Administer via Nasal every 3-5 min until patient becomes responsive. Repeat as many times as necessary for pt to become responsive. 2 Each 11 Patient's allergies: Allergies Allergen Reactions Wellbutrin [Bupropion] Other (See Comments) seizures Codeine Hives Physical Exam Cardiovascular: Rate and Rhythm: Normal rate. Pulmonary: Effort: Pulmonary effort is normal. Abdominal: General: There is distension. Musculoskeletal: General: Normal range of motion. Skin: General: Skin is warm. Neurological: Mental Status: She is alert. Mental status is at baseline. Psychiatric: Mood and Affect: Mood normal. A/P: Ascites. Will proceed with requested paracentesis. Discussed the potential benefits, risks, and alternatives to the proposed procedure. Ms. Hightower is in agreement with the plan of care. Signed: Ginger Milton M.D. 08/02/2024 2:59 PM documented in this [facility]11-07-2024 Hospital Discharge instructions* Discharge Instructions* Mike Horner - 08/02/2024 1:42 PM EST Drainage Procedure (Paracentesis) Post Procedure Discharge Instructions What to expect after your procedure: You may experience some cramping, swelling or discomfort immediately after the procedure. These symptoms usually disappear in one or two days. Bruising may continue for 7-10 days. What you need to do: It is best to rest the site for the next 12 hours. You may continue your normal diet with any restrictions as prior to your procedure. You may resume your medications as prior to procedure. Inspect your site daily. Keep drainage site clean and dry. You may remove your dressing 48 hours (2 days). You may take your regular prescription medications as you usually do. You may continue your normal diet, the same as before your procedure. Continue any diet or fluid restriction as ordered by your physician. You will need to have someone to drive you home from the hospital upon discharge. What not to do: No heavy lifting or straining for 48 hours. Limit bathing for 48 hours or until dressing is removed. Do not apply lotions or ointment to site, unless instructed by your physician. When to contact your physician (the Physician who ordered the procedure): Any signs of infection, fever greater than 101.5, warmth to touch, drainage, redness or swelling a the site. If swelling or discomfort at site continues for more than 2 days after procedure. Excessive or abnormal bleeding. If bleeding occurs, apply pressure to site with fingertips for 10 - 15 minutes. If bleeding does not stop go to nearest Emergency Room. Any chest pain or shortness of breath, please go to nearest Emergency Room. New onset of generalized weakness. Nausea or vomiting. Notes: Your follow up appointment has been made for at . If this appointment needs to be cancelled or rescheduled please call the nurse at [phone]. If you have any questions or concerns about your procedure please call: [phone] or [phone]. These instructions have been explained to me. I understand their content and have received a copy. Sign: Witness: Thank you for choosing [facility] Vascular and Interventional Department [facility] Emergency department Note* Davy Isaacs RN - 07/26/2024 5:11 PM EDT Discharge instructions and education provided at this time. Patient verbalizes understanding of discharge instructions and education. IV access removed. Follow up care and instructions reviewed with patient. No complaints noted at this time. VSS. Pt declines wheelchair and ambulated out of ED at this time to lobby to wait on ride [facility] Emergency department Note* Davy Isaacs RN - 07/26/2024 5:11 PM EDT Discharge instructions and education provided at this time. Patient verbalizes understanding of discharge instructions and education. IV access removed. Follow up care and instructions reviewed with patient. No complaints noted at this time. VSS. Pt declines wheelchair and ambulated out of ED at this time to lobby to wait on ride * Davy Isaacs RN - 07/26/2024 4:14 PM EDT Pt to IR. * Davy Isaacs RN - 07/26/2024 3:48 PM EDT Report to [facility] in IR * Pete Ponce MD - 07/26/2024 12:52 PM EDT Carolina Hightower [[id number]] (F) - 48 y.o. Note Creation:07/26/2024 Encounter Date:07/26/2024 History Chief Complaint Patient presents with Abdominal Pain Swelling Carolina Hightower is a 48 y.o. female with hx of ascites, hep C, cirrhosis who presents to the ED via PV with c/o abdominal swelling and associated pain that began several days ago. Per chart review, pt had paracentesis on 07/[address] Gómez. Pt states this is the biggest I have ever been.. 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 She deniesfever, chills, CP, SOB, n/v, or any other pertinent symptoms or concerns. She denies any other aggravating or alleviating factors. She denies any other pertinent PMHx. The history is provided by the patient and medical records. Past Medical History: Diagnosis Date Ascites Bipolar disorder (CMS/HCC) Chronic hepatitis C virus infection (CMS/HCC) Cirrhosis (CMS/HCC) Kidney stone Past Surgical History: Procedure Laterality Date HX LIVER BIOPSY HX POST STERILIZATION PARACENTESIS N/A 07/02/2024 Paracentesis performed by Max Rico MD at [facility] PARACENTESIS N/A 07/09/2024 Paracentesis performed by Ginger Milton MD at [facility] PARACENTESIS N/A 07/19/2024 Paracentesis performed by Minda Gómez MD at [facility] ULTRASOUND GUIDANCE N/A 07/02/2024 Ultrasound Guidance performed by Max Rico MD at [facility] ULTRASOUND GUIDANCE N/A 07/09/2024 Ultrasound Guidance performed by Ginger Milton MD at [facility] ULTRASOUND GUIDANCE N/A 07/19/2024 Ultrasound Guidance performed by Minda Gómez MD at [facility] No family history on file. Social History Tobacco Use Smoking status: Every Day Packs/day: 1 Types: Cigarettes Smokeless tobacco: Never Substance Use Topics Alcohol use: Not Currently Drug use: Not Currently Types: Methamphetamines Comment: new 2023 Patient is a tobacco user, and I have offered a counseling referral. No LMP recorded. Patient is postmenopausal. Allergies Allergen Reactions Wellbutrin [Bupropion] Other (See Comments) seizures Codeine Hives Current Outpatient Medications on File Prior to Encounter Medication Sig hydrOXYzine hcl (ATARAX) 25 mg tablet Take 25 mg by mouth Twice a day as needed for Itching. traZODone (DESYREL) 50 mg tablet Take 50 mg by mouth At bedtime. spironolactone 50 mg tablet Take 2 Tabs by mouth Once Daily for 360 days. furosemide (LASIX) 40 mg tablet Take 1 Tablet by mouth Once Daily. lactulose (CHRONULAC) 10 gram/15 mL solution Take 15 mL by mouth Three times a day. pantoprazole (PROTONIX) [address] tablet Take 1 Tablet by mouth Once Daily for 90 days. lurasidone (LATUDA) 20 mg tablet Take 20 mg by mouth Once Daily. busPIRone (BUSPAR) 10 mg tablet Take 10 mg by mouth Three times a day. desvenlafaxine succinate (PRISTIQ) 50 mg tablet Take 50 mg by mouth Once Daily. Take 25mg daily gabapentin (NEURONTIN) 100 mg capsule Take 100 mg by mouth Twice a day. fluticasone propionate (FLONASE) 50 mcg/Actuation nasal spray Prather 50 mcg in each nostril Once Daily. One spray both nostrils daily ferrous sulfate 325 mg (65 mg iron) DR tablet Take 325 mg by mouth Once Daily. Spironolacton-Hydrochlorothiaz 50-50 mg Tab Take 50 mg by mouth Twice a day. topiramate (TOPAMAX) 25 mg Take 25 mg by mouth Once Daily. naloxone (NARCAN) 4 mg/actuation nasal spray Prather 1 Prather in nose As directed for 1 dose. Call 911, Administer via Nasal every 3-5 min until patient becomes responsive. Repeat as many times as necessary for pt to become responsive. Review of Systems Review of Systems Constitutional: Positive for fatigue. Negative for appetite change, chills, diaphoresis and fever. HENT: Negative for facial swelling. Eyes: Negative for discharge. Respiratory: Negative for cough, shortness of breath and wheezing. Cardiovascular: Negative for chest pain. Gastrointestinal: Positive for abdominal distention and abdominal pain. Negative for blood in stool, nausea and vomiting. Endocrine: Negative for cold intolerance. Genitourinary: Negative for flank pain. Musculoskeletal: Negative for joint swelling. Skin: Positive for pallor. Negative for rash. Allergic/Immunologic: Positive for immunocompromised state. Neurological: Negative for syncope. Hematological: Negative for adenopathy. Psychiatric/Behavioral: Negative for confusion. All other systems reviewed and are negative. Physical Exam ED Triage Vitals [07/26/24 1043] BP BP Manual or Automatic? Patient Position BP Location Heart Rate (Monitor) 119/58 Automatic Sitting Right Arm -- Pulse Pulse Source Respirations Temp Temp Source 63 Brachial 17 98.7 F (37.1 C) Oral SpO2 SPO2 Location O2 Delivery O2 Device O2 Flow Rate (l/min) 100 % Right Arm Room air -- -- FIO2 (%) Pain Intensity 1 Exacerbated By Relieved By Quality -- 9 -- -- -- Duration -- Physical Exam Vitals and nursing note reviewed. Constitutional: General: She is not in acute distress. Appearance: She is well-developed. She is not toxic-appearing or diaphoretic. HENT: Head: Normocephalic and atraumatic. Right Ear: External ear normal. Left Ear: External ear normal. Nose: No congestion or rhinorrhea. Mouth/Throat: Pharynx: No oropharyngeal exudate. Eyes: General: No scleral icterus. Right eye: No discharge. Left eye: No discharge. Pupils: Pupils are equal, round, and reactive to light. Neck: Vascular: No JVD. Cardiovascular: Rate and Rhythm: Normal rate and regular rhythm. Heart sounds: Normal heart sounds. No murmur heard. Pulmonary: Effort: Pulmonary effort is normal. No respiratory distress. Breath sounds: Normal breath sounds. No stridor. No wheezing or rales. Abdominal: General: There is distension. Palpations: Abdomen is soft. Tenderness: There is no abdominal tenderness. There is no right CVA tenderness or left CVA tenderness. Musculoskeletal: General: No swelling, tenderness, deformity or signs of injury. Normal range of motion. Cervical back: Normal range of motion and neck supple. No rigidity or tenderness. No muscular tenderness. Right lower leg: No edema. Left lower leg: No edema. Lymphadenopathy: Cervical: No cervical adenopathy. Skin: General: Skin is warm and dry. Capillary Refill: Capillary refill takes less than 2 seconds. Coloration: Skin is not jaundiced or pale. Findings: No bruising, erythema, lesion or rash. Neurological: General: No focal deficit present. Mental Status: She is alert and oriented to person, place, and time. Mental status is at baseline. Cranial Nerves: No cranial nerve deficit. Sensory: No sensory deficit. Motor: No weakness. Psychiatric: Mood and Affect: Mood normal. Behavior: Behavior normal. MDM Treatment: Procedures Medications - No data to display Results for orders placed or performed during the hospital encounter of 07/26/24 CBC w/Differential Result Value Ref Range WBC 6.3 4.5 - 11.0 10*3/uL RBC 3.43 (L) 4.00 - 5.20 10*6/uL HGB 11.4 (L) 12.0 - 16.0 g/dL HCT 32.6 (L) 33.0 - 51.0 % MCV 95.0 80.0 - 100.0 fL MCHC 35.1 32.0 - 36.0 g/dL MCH 33.3 26.0 - 34.0 pg RDW 17.7 10.7 - 18.7 % MPV 9.9 6.5 - 10.0 fL Platelet Cnt 65 (L) 150 - 450 10*3/uL Differential Type Auto Neutrophils 69.0 (H) 35.0 - 66.0 % Lymphocytes 15.7 (L) 24.0 - 44.0 % Monocytes 10.3 2.1 - 13.3 % Eosinophils 4.0 0.3 - 5.0 % Basophils 1.0 0.0 - 1.0 % Neutrophils Abs 4.3 1.5 - 8.5 10*3/uL Lymphocytes Abs 1.0 (L) 1.1 - 5.0 10*3/uL Monocytes Abs 0.6 0.0 - 1.4 10*3/uL Eosinophils Abs 0.2 0.0 - 0.5 10*3/uL Basophils Abs 0.1 0.0 - 0.1 10*3/uL MDW 20.0 0.0 - 20.0 Comprehensive Metabolic Panel Result Value Ref Range SODIUM 135 135 - 145 mmol/L POTASSIUM 4.6 3.6 - 5.0 mmol/L CHLORIDE 109 101 - 111 mmol/L CO2 24 21 - 31 mmol/L ANION GAP 2 GLUCOSE 98 70 - 110 mg/dL CREATININE 0.9 0.4 - 1.0 mg/dL BUN 11 2 - 32 mg/dL CALCIUM 8.7 8.5 - 10.5 mg/dL PROTEIN TOTAL 6.8 6.1 - 7.8 g/dL Albumin 2.9 (L) 3.2 - 5.0 g/dL T BILIRUBIN 1.6 (H) 0.2 - 1.0 mg/dL ALP 123 (H) 42 - 121 [iU]/L AST 125 (H) 10 - 42 [iU]/L ALT (SGPT) 65 (H) 10 - 60 [iU]/L OSMOLALITY 269 266 - 309 A/G Ratio 0.7 B/C 12 10 - 20 ESTIMATED GFR 66 mL/min PT/APTT/INR Result Value Ref Range PROTIME 16.9 (H) 10.1 - 13.7 s INR 1.4 (H) 0.9 - 1.1 APTT 38.0 (H) 25.5 - 35.9 s Results None Plan: [facility] [place]HECK: Discharge: The pt is awake, alert and STABLE appearing at time of reevaluation. I spoke with the patient about her ED work up, diagnosis and any further treatment. I discussed the importance of following up on 07/27 at 1030 am with Jhonatan Banda NP at the [facility]. Iinstructed her to return to the Emergency Room for new or worsening symptoms. All of the pt's questions were answered. The patient verbalized understanding. The patient is stable at time of discharge. Medical Decision Making DIFFERENTIAL DIAGNOSIS Differential Diagnosis: The following diagnoses were considered in the evaluation of this patient: alcoholic cirrhosis with abdominal ascites, hx substance abuse. Problems Addressed: Alcoholic cirrhosis of liver with ascites (CMS/HCC): acute illness or injury Amount and/or Complexity of Data Reviewed External Data Reviewed: labs and notes. Labs: ordered. Progress Note: ED Prescriptions None Final diagnoses: Alcoholic cirrhosis of liver with ascites (CMS/HCC) ED Disposition ED Disposition Discharge After Treatment Condition Stable Comment -- Discharge Instructions Follow up as scheduled on 07/27 at 1030 am with Jhonatan Banda NP at the [facility]. Discharge References/Attachments Cirrhosis of the Liver (AfterCare(R) Instructions(ER/ED)) (Ghanaian) Scribe Attestation: IGigi, am acting as scribe for and in the presence of Pete Ponce MD. Electronically Signed By Gigi Isaacs 07/26/24 12:55 PM Provider Attestation: I personally performed the services described in the documentation, reviewed the documentation recorded by the scribe in my presence and it accurately and completely records my words and actions. * Davy Isaacs RN - 07/26/2024 12:31 PM EDT Assumed care of pt. Pt presented to ED with complaints of abdominal swelling. Pt reports she has abdominal swelling and pain, has been more swollen than she has been in the past with this issue. NADN, AOX3, side rails up X2, call light in reach * Kemal Thao RN - 07/26/2024 12:15 PM EDT Patient to room [facility] from [facility] at this time. documented in this encounterThe Medical Center10-31-2024 Note Procedure: Ultrasound guided therapeutic paracentesis Indication: Cirrhosis with ascites, abdominal distention and discomfort Complication: None immediate Description of the procedure: Written informed consent was obtained. She was placed in the supine position. The abdomen was prepped and draped in the usual sterile fashion. 1% lidocaine without epinephrine was used as a local anesthetic. A dermatotomy was created with an 11 blade. Under direct sonographic guidance using aseptic technique a 6.5 Swedish merit resolve drainage catheter was placed into the peritoneal cavity of the right lower quadrant followed by the removal 3750 ml yellow ascitic fluid. The fluid was discarded. The catheter was removed, examined and found to be intact. The dermatotomy was covered with sterile 4 x 4 and Tegaderm dressing. There were no immediate complications or patient complaints. 25 gm IV albumin per protocol. Impression: Technically successful ultrasound-guided therapeutic paracentesis as above. [facility] Emergency department Note* Davy Isaacs RN - 07/26/2024 4:14 PM EDT Pt to IR. [facility] Note* Davy Isaacs RN - 07/26/2024 3:48 PM EDT Report to [facility] in IR [facility] Discharge instructions* Discharge Instructions* Gigi Isaacs - 07/26/2024 1:31 PM EDT Follow up as scheduled on 07/27 at 1030 am with Jhonatan Banda NP at the [facility]. * Attachments The following attachments cannot be sent through Care Everywhere. * Cirrhosis of the Liver (AfterCare(R) Instructions(ER/ED)) (Ghanaian) documented in this encounterThe Medical Center10-31-2024 Physician Emergency department Note* Pete Ponce MD - 07/26/2024 12:52 PM EDT Carolina Hightower [[id number]] (F) - 48 y.o. Note Creation:07/26/2024 Encounter Date:07/26/2024 History Chief Complaint Patient presents with Abdominal Pain Swelling Carolina Hightower is a 48 y.o. female with hx of ascites, hep C, cirrhosis who presents to the ED via PV with c/o abdominal swelling and associated pain that began several days ago. Per chart review, pt had paracentesis on 07/[address] Gómez. Pt states this is the biggest I have ever been.. 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 She deniesfever, chills, CP, SOB, n/v, or any other pertinent symptoms or concerns. She denies any other aggravating or alleviating factors. She denies any other pertinent PMHx. The history is provided by the patient and medical records. Past Medical History: Diagnosis Date Ascites Bipolar disorder (CMS/HCC) Chronic hepatitis C virus infection (CMS/HCC) Cirrhosis (CMS/HCC) Kidney stone Past Surgical History: Procedure Laterality Date HX LIVER BIOPSY HX POST STERILIZATION PARACENTESIS N/A 07/02/2024 Paracentesis performed by Max Rico MD at [facility] PARACENTESIS N/A 07/09/2024 Paracentesis performed by Ginger Milton MD at [facility] PARACENTESIS N/A 07/19/2024 Paracentesis performed by Minda Gómez MD at [facility] ULTRASOUND GUIDANCE N/A 07/02/2024 Ultrasound Guidance performed by Max Rico MD at [facility] ULTRASOUND GUIDANCE N/A 07/09/2024 Ultrasound Guidance performed by Ginger Milton MD at [facility] ULTRASOUND GUIDANCE N/A 07/19/2024 Ultrasound Guidance performed by Minda Gómez MD at [facility] No family history on file. Social History Tobacco Use Smoking status: Every Day Packs/day: 1 Types: Cigarettes Smokeless tobacco: Never Substance Use Topics Alcohol use: Not Currently Drug use: Not Currently Types: Methamphetamines Comment: new 2023 Patient is a tobacco user, and I have offered a counseling referral. No LMP recorded. Patient is postmenopausal. Allergies Allergen Reactions Wellbutrin [Bupropion] Other (See Comments) seizures Codeine Hives Current Outpatient Medications on File Prior to Encounter Medication Sig hydrOXYzine hcl (ATARAX) 25 mg tablet Take 25 mg by mouth Twice a day as needed for Itching. traZODone (DESYREL) 50 mg tablet Take 50 mg by mouth At bedtime. spironolactone 50 mg tablet Take 2 Tabs by mouth Once Daily for 360 days. furosemide (LASIX) 40 mg tablet Take 1 Tablet by mouth Once Daily. lactulose (CHRONULAC) 10 gram/15 mL solution Take 15 mL by mouth Three times a day. pantoprazole (PROTONIX) [address] tablet Take 1 Tablet by mouth Once Daily for 90 days. lurasidone (LATUDA) 20 mg tablet Take 20 mg by mouth Once Daily. busPIRone (BUSPAR) 10 mg tablet Take 10 mg by mouth Three times a day. desvenlafaxine succinate (PRISTIQ) 50 mg tablet Take 50 mg by mouth Once Daily. Take 25mg daily gabapentin (NEURONTIN) 100 mg capsule Take 100 mg by mouth Twice a day. fluticasone propionate (FLONASE) 50 mcg/Actuation nasal spray Prather 50 mcg in each nostril Once Daily. One spray both nostrils daily ferrous sulfate 325 mg (65 mg iron) DR tablet Take 325 mg by mouth Once Daily. Spironolacton-Hydrochlorothiaz 50-50 mg Tab Take 50 mg by mouth Twice a day. topiramate (TOPAMAX) 25 mg Take 25 mg by mouth Once Daily. naloxone (NARCAN) 4 mg/actuation nasal spray Prather 1 Prather in nose As directed for 1 dose. Call 911, Administer via Nasal every 3-5 min until patient becomes responsive. Repeat as many times as necessary for pt to become responsive. Review of Systems Review of Systems Constitutional: Positive for fatigue. Negative for appetite change, chills, diaphoresis and fever. HENT: Negative for facial swelling. Eyes: Negative for discharge. Respiratory: Negative for cough, shortness of breath and wheezing. Cardiovascular: Negative for chest pain. Gastrointestinal: Positive for abdominal distention and abdominal pain. Negative for blood in stool, nausea and vomiting. Endocrine: Negative for cold intolerance. Genitourinary: Negative for flank pain. Musculoskeletal: Negative for joint swelling. Skin: Positive for pallor. Negative for rash. Allergic/Immunologic: Positive for immunocompromised state. Neurological: Negative for syncope. Hematological: Negative for adenopathy. Psychiatric/Behavioral: Negative for confusion. All other systems reviewed and are negative. Physical Exam ED Triage Vitals [07/26/24 1043] BP BP Manual or Automatic? Patient Position BP Location Heart Rate (Monitor) 119/58 Automatic Sitting Right Arm -- Pulse Pulse Source Respirations Temp Temp Source 63 Brachial 17 98.7 F (37.1 C) Oral SpO2 SPO2 Location O2 Delivery O2 Device O2 Flow Rate (l/min) 100 % Right Arm Room air -- -- FIO2 (%) Pain Intensity 1 Exacerbated By Relieved By Quality -- 9 -- -- -- Duration -- Physical Exam Vitals and nursing note reviewed. Constitutional: General: She is not in acute distress. Appearance: She is well-developed. She is not toxic-appearing or diaphoretic. HENT: Head: Normocephalic and atraumatic. Right Ear: External ear normal. Left Ear: External ear normal. Nose: No congestion or rhinorrhea. Mouth/Throat: Pharynx: No oropharyngeal exudate. Eyes: General: No scleral icterus. Right eye: No discharge. Left eye: No discharge. Pupils: Pupils are equal, round, and reactive to light. Neck: Vascular: No JVD. Cardiovascular: Rate and Rhythm: Normal rate and regular rhythm. Heart sounds: Normal heart sounds. No murmur heard. Pulmonary: Effort: Pulmonary effort is normal. No respiratory distress. Breath sounds: Normal breath sounds. No stridor. No wheezing or rales. Abdominal: General: There is distension. Palpations: Abdomen is soft. Tenderness: There is no abdominal tenderness. There is no right CVA tenderness or left CVA tenderness. Musculoskeletal: General: No swelling, tenderness, deformity or signs of injury. Normal range of motion. Cervical back: Normal range of motion and neck supple. No rigidity or tenderness. No muscular tenderness. Right lower leg: No edema. Left lower leg: No edema. Lymphadenopathy: Cervical: No cervical adenopathy. Skin: General: Skin is warm and dry. Capillary Refill: Capillary refill takes less than 2 seconds. Coloration: Skin is not jaundiced or pale. Findings: No bruising, erythema, lesion or rash. Neurological: General: No focal deficit present. Mental Status: She is alert and oriented to person, place, and time. Mental status is at baseline. Cranial Nerves: No cranial nerve deficit. Sensory: No sensory deficit. Motor: No weakness. Psychiatric: Mood and Affect: Mood normal. Behavior: Behavior normal. MDM Treatment: Procedures Medications - No data to display Results for orders placed or performed during the hospital encounter of 07/26/24 CBC w/Differential Result Value Ref Range WBC 6.3 4.5 - 11.0 10*3/uL RBC 3.43 (L) 4.00 - 5.20 10*6/uL HGB 11.4 (L) 12.0 - 16.0 g/dL HCT 32.6 (L) 33.0 - 51.0 % MCV 95.0 80.0 - 100.0 fL MCHC 35.1 32.0 - 36.0 g/dL MCH 33.3 26.0 - 34.0 pg RDW 17.7 10.7 - 18.7 % MPV 9.9 6.5 - 10.0 fL Platelet Cnt 65 (L) 150 - 450 10*3/uL Differential Type Auto Neutrophils 69.0 (H) 35.0 - 66.0 % Lymphocytes 15.7 (L) 24.0 - 44.0 % Monocytes 10.3 2.1 - 13.3 % Eosinophils 4.0 0.3 - 5.0 % Basophils 1.0 0.0 - 1.0 % Neutrophils Abs 4.3 1.5 - 8.5 10*3/uL Lymphocytes Abs 1.0 (L) 1.1 - 5.0 10*3/uL Monocytes Abs 0.6 0.0 - 1.4 10*3/uL Eosinophils Abs 0.2 0.0 - 0.5 10*3/uL Basophils Abs 0.1 0.0 - 0.1 10*3/uL MDW 20.0 0.0 - 20.0 Comprehensive Metabolic Panel Result Value Ref Range SODIUM 135 135 - 145 mmol/L POTASSIUM 4.6 3.6 - 5.0 mmol/L CHLORIDE 109 101 - 111 mmol/L CO2 24 21 - 31 mmol/L ANION GAP 2 GLUCOSE 98 70 - 110 mg/dL CREATININE 0.9 0.4 - 1.0 mg/dL BUN 11 2 - 32 mg/dL CALCIUM 8.7 8.5 - 10.5 mg/dL PROTEIN TOTAL 6.8 6.1 - 7.8 g/dL Albumin 2.9 (L) 3.2 - 5.0 g/dL T BILIRUBIN 1.6 (H) 0.2 - 1.0 mg/dL ALP 123 (H) 42 - 121 [iU]/L AST 125 (H) 10 - 42 [iU]/L ALT (SGPT) 65 (H) 10 - 60 [iU]/L OSMOLALITY 269 266 - 309 A/G Ratio 0.7 B/C 12 10 - 20 ESTIMATED GFR 66 mL/min PT/APTT/INR Result Value Ref Range PROTIME 16.9 (H) 10.1 - 13.7 s INR 1.4 (H) 0.9 - 1.1 APTT 38.0 (H) 25.5 - 35.9 s Results None Plan: [facility] [place]HECK: Discharge: The pt is awake, alert and STABLE appearing at time of reevaluation. I spoke with the patient about her ED work up, diagnosis and any further treatment. I discussed the importance of following up on 07/27 at 1030 am with Jhonatan Banda NP at the [facility]. Iinstructed her to return to the Emergency Room for new or worsening symptoms. All of the pt's questions were answered. The patient verbalized understanding. The patient is stable at time of discharge. Medical Decision Making DIFFERENTIAL DIAGNOSIS Differential Diagnosis: The following diagnoses were considered in the evaluation of this patient: alcoholic cirrhosis with abdominal ascites, hx substance abuse. Problems Addressed: Alcoholic cirrhosis of liver with ascites (CMS/HCC): acute illness or injury Amount and/or Complexity of Data Reviewed External Data Reviewed: labs and notes. Labs: ordered. Progress Note: ED Prescriptions None Final diagnoses: Alcoholic cirrhosis of liver with ascites (CMS/HCC) ED Disposition ED Disposition Discharge After Treatment Condition Stable Comment -- Discharge Instructions Follow up as scheduled on 07/27 at 1030 am with Jhonatan Banda NP at the [facility]. Discharge References/Attachments Cirrhosis of the Liver (AfterCare(R) Instructions(ER/ED)) (Ghanaian) Scribe Attestation: I, Gigi Isaacs, am acting as scribe for and in the presence of Pete Ponce MD. Electronically Signed By Gigi Isaacs 07/26/24 12:55 PM Provider Attestation: I personally performed the services described in the documentation, reviewed the documentation recorded by the scribe in my presence and it accurately and completely records my words and actions. [facility] Emergency department Note* Davy Isaacs RN - 07/26/2024 12:31 PM EDT Assumed care of pt. Pt presented to ED with complaints of abdominal swelling. Pt reports she has abdominal swelling and pain, has been more swollen than she has been in the past with this issue. NADN, AOX3, side rails up X2, call light in reach [facility] Emergency [facility] Note* Kemal Thao RN - 07/26/2024 12:15 PM EDT Patient to room 27 from [facility] at this time. [facility] Hospital Discharge instructions* Discharge Instructions* Luci Victoria RN - 07/19/2024 4:21 PM EDT Drainage Procedure Paracentesis Post Procedure Discharge Instructions What to expect after your procedure: You may experience some cramping, swelling or discomfort immediately after the procedure. These symptoms usually disappear in one or two days. Bruising may continue for 7-10 days. What you need to do: It is best to rest the site for the next 12 hours. You may continue your normal diet with any restrictions as prior to your procedure. You may resume your medications as prior to procedure. Inspect your site daily. Keep drainage site clean and dry. You may remove your dressing 48 hours (2 days). You may take your regular prescription medications as you usually do. You may continue your normal diet, the same as before your procedure. Continue any diet or fluid restriction as ordered by your physician. You will need to have someone to drive you home from the hospital upon discharge. What not to do: No heavy lifting or straining for 48 hours. Limit bathing for 48 hours or until dressing is removed. Do not apply lotions or ointment to site, unless instructed by your physician. When to contact your physician (the Physician who ordered the procedure): Any signs of infection, fever greater than 101.5, warmth to touch, drainage, redness or swelling a the site. If swelling or discomfort at site continues for more than 2 days after procedure. Excessive or abnormal bleeding. If bleeding occurs, apply pressure to site with fingertips for 10 - 15 minutes. If bleeding does not stop go to nearest Emergency Room. Any chest pain or shortness of breath, please go to nearest Emergency Room. New onset of generalized weakness. Nausea or vomiting. Notes: Your follow up appointment has been made for call for f/u care as needed If this appointment needs to be cancelled or rescheduled please call the nurse at [phone]. If you have any questions or concerns about your procedure please call: [phone] or [phone]. These instructions have been explained to me. I understand their content and have received a copy. Sign: Witness: Thank you for choosing [facility] Vascular and Interventional Department * Attachments The following attachments cannot be sent through Care Everywhere. * Liver Disease Diet (Train [employer]ductor) (Ghanaian) [facility] History and physical note* Minda Gómez MD - 07/19/2024 3:55 PM EDT History and Physical for Interventional Radiology Name: Carolina Hightower : 1975 07/19/2024 HPI: Liver cirrhosis with recurrent abdominal distention and symptomatic ascites. Past Medical History: Diagnosis Date Ascites Chronic hepatitis C virus infection (CMS/HCC) Cirrhosis (CMS/HCC) Current Facility-Administered Medications on File Prior to Encounter Medication Dose Route Frequency Provider Last Rate Last Admin [COMPLETED] hydrOXYzine pamoate (VISTARIL) cap 25 mg 25 mg Oral ONE TIME Tommie New MD 25 mg at 07/09/24 0302 [COMPLETED] lidocaine (preservative free) 10 mg/mL (1 %) injection ONE TIME PRN Ginger Milton MD 10 mL at 07/09/24 0833 [COMPLETED] albumin human 25 % vial ONE TIME PRN Ginger Milton MD 37.5 g at 07/09/24 0909 [COMPLETED] morphine injection 4 mg 4 mg Intravenous ONE TIME Lambert Veliz DO 4 mg at 07/08/241921 [COMPLETED] ondansetron hcl (PF) (ZOFRAN) injection 4 mg 4 mg Intravenous ONE TIME Lambert Veliz DO 4 mg at 07/08/241922 [COMPLETED] lidocaine (preservative free) 20 mg/mL (2 %) injection ONE TIME PRN Max Rico MD 7mL at 07/02/24 1318 [COMPLETED] albumin human 25 % vial ONE TIME PRN Max Rico, MD 37.5 g at 07/02/24 1401 Current Outpatient Medications on File Prior to Encounter Medication Sig Dispense Refill lurasidone (LATUDA) 20 mg tablet Take 20 mg by mouth Once Daily. lactulose (CHRONULAC) 10 gram/15 mL solution Take 10 g by mouth Three times a day. busPIRone (BUSPAR) 10 mg tablet Take 10 mg by mouth Three times a day. pantoprazole (PROTONIX) [address] tablet Take 40 mg by mouth Once Daily. desvenlafaxine succinate (PRISTIQ) 50 mg tablet Take 50 mg by mouth Once Daily. Take 25mg daily gabapentin (NEURONTIN) 100 mg capsule Take 100 mg by mouth Twice a day. fluticasone propionate (FLONASE) 50 mcg/Actuation nasal spray Prather 50 mcg in each nostril Once Daily. One spray both nostrils daily ferrous sulfate 325 mg (65 mg iron) DR tablet Take 325 mg by mouth Once Daily. Spironolacton-Hydrochlorothiaz 50-50 mg Tab Take 50 mg by mouth Twice a day. topiramate (TOPAMAX) 25 mg Take 25 mg by mouth Once Daily. naloxone (NARCAN) 4 mg/actuation nasal spray Prather 1 Prather in nose As directed for 1 dose. Call 911, Administer via Nasal every 3-5 min until patient becomes responsive. Repeat as many times as necessary for pt to become responsive. 2 Each 11 Patient's allergies: Allergies Allergen Reactions Wellbutrin [Bupropion] Other (See Comments) seizures Codeine Hives Physical Exam Constitutional: Appearance: Normal appearance. HENT: Head: Normocephalic and atraumatic. Cardiovascular: Rate and Rhythm: Normal rate. Pulses: Normal pulses. Pulmonary: Effort: Pulmonary effort is normal. Abdominal: General: There is distension. Tenderness: There is no abdominal tenderness. There is no guarding. Musculoskeletal: General: Normal range of motion. Cervical back: Normal range of motion and neck supple. Skin: General: Skin is warm and dry. Neurological: Mental Status: She is alert. A/P: Will proceed with requested paracentesis. Discussed the potential benefits, risks, and alternatives to the proposed procedure. Ms. Hightower is in agreement with the plan of care. Signed: Minda Gómez M.D., MD 07/19/2024 3:55 PM [facility] Work Phone: [phone] 799-433410-24-2024 History and physical note* Minda Gómez MD - 07/19/2024 3:55 PM EDT History and Physical for Interventional Radiology Name: Carolina Hightower : 1975 07/19/2024 HPI: Liver cirrhosis with recurrent abdominal distention and symptomatic ascites. Past Medical History: Diagnosis Date Ascites Chronic hepatitis C virus infection (CMS/HCC) Cirrhosis (CMS/HCC) Current Facility-Administered Medications on File Prior to Encounter Medication Dose Route Frequency Provider Last Rate Last Admin [COMPLETED] hydrOXYzine pamoate (VISTARIL) cap 25 mg 25 mg Oral ONE TIME Tommie New MD 25 mg at 07/09/24 0302 [COMPLETED] lidocaine (preservative free) 10 mg/mL (1 %) injection ONE TIME PRN Ginger Milton MD 10 mL at 07/09/24 0833 [COMPLETED] albumin human 25 % vial ONE TIME PRN Ginger Milton MD 37.5 g at 07/09/24 0909 [COMPLETED] morphine injection 4 mg 4 mg Intravenous ONE TIME Lambert Veliz DO 4 mg at 07/08/241921 [COMPLETED] ondansetron hcl (PF) (ZOFRAN) injection 4 mg 4 mg Intravenous ONE TIME Lambert Veliz DO 4 mg at 07/08/241922 [COMPLETED] lidocaine (preservative free) 20 mg/mL (2 %) injection ONE TIME PRN Max Rico MD 7mL at 07/02/24 1318 [COMPLETED] albumin human 25 % vial ONE TIME PRN Max Rico MD 37.5 g at 07/02/24 1401 Current Outpatient Medications on File Prior to Encounter Medication Sig Dispense Refill lurasidone (LATUDA) 20 mg tablet Take 20 mg by mouth Once Daily. lactulose (CHRONULAC) 10 gram/15 mL solution Take 10 g by mouth Three times a day. busPIRone (BUSPAR) 10 mg tablet Take 10 mg by mouth Three times a day. pantoprazole (PROTONIX) [address] tablet Take 40 mg by mouth Once Daily. desvenlafaxine succinate (PRISTIQ) 50 mg tablet Take 50 mg by mouth Once Daily. Take 25mg daily gabapentin (NEURONTIN) 100 mg capsule Take 100 mg by mouth Twice a day. fluticasone propionate (FLONASE) 50 mcg/Actuation nasal spray Prather 50 mcg in each nostril Once Daily. One spray both nostrils daily ferrous sulfate 325 mg (65 mg iron) DR tablet Take 325 mg by mouth Once Daily. Spironolacton-Hydrochlorothiaz 50-50 mg Tab Take 50 mg by mouth Twice a day. topiramate (TOPAMAX) 25 mg Take 25 mg by mouth Once Daily. naloxone (NARCAN) 4 mg/actuation nasal spray Prather 1 Prather in nose As directed for 1 dose. Call 911, Administer via Nasal every 3-5 min until patient becomes responsive. Repeat as many times as necessary for pt to become responsive. 2 Each 11 Patient's allergies: Allergies Allergen Reactions Wellbutrin [Bupropion] Other (See Comments) seizures Codeine Hives Physical Exam Constitutional: Appearance: Normal appearance. HENT: Head: Normocephalic and atraumatic. Cardiovascular: Rate and Rhythm: Normal rate. Pulses: Normal pulses. Pulmonary: Effort: Pulmonary effort is normal. Abdominal: General: There is distension. Tenderness: There is no abdominal tenderness. There is no guarding. Musculoskeletal: General: Normal range of motion. Cervical back: Normal range of motion and neck supple. Skin: General: Skin is warm and dry. Neurological: Mental Status: She is alert. A/P: Will proceed with requested paracentesis. Discussed the potential benefits, risks, and alternatives to the proposed procedure. Ms. Hightower is in agreement with the plan of care. Signed: Minda Gómez M.D., MD 07/19/2024 3:55 PM documented in this [facility]10-15-2024 Hospital course Narrative* Tod Son DO - 07/10/2024 2:50 PM EDT Physician Discharge Summary Patient:Carolina Hightower Age:48 y.o. :1975 Admit Date: 07/08/2024 Discharge Date: 07/10/2024 Principal Diagnoses: Principal Problem: Alcoholic cirrhosis of liver with ascites (CMS/HCC) Active Problems: Chronic hepatitis C with cirrhosis (CMS/HCC) Discharge Diagnosis: alcoholic cirrhosis with symptomatic ascites Hospital Course: 48-year-old female presenting with abdominal discomfort pain. IV pain medications with need for paracentesis. Patient tolerated procedure the next morning with Rocephin started. Wellness recovery evaluated the patient prescribing narcan. [facility]. Paracentesisfluid culture without organism growth therefore able to stop antibiotics prior to discharge. Consults to: wellness recovery, interventional radiology Disposition: home Discharge Condition: good Discharge Medications: Discharge Medication List as of 07/10/2024 12:09 PM START taking these medications Details naloxone (NARCAN) 4 mg/actuation nasal spray Prather 1 Prather in nose As directed for 1 dose. Call 911, Administer via Nasal every 3-5 min until patient becomes responsive. Repeat as many times as necessary for pt to become responsive., Disp-2 Each, R-11, Normal CONTINUE these medications which have NOT CHANGED Details lurasidone (LATUDA) 20 mg tablet Take 20 mg by mouth Once Daily., Historical Med lactulose (CHRONULAC) 10 gram/15 mL solution Take 10 g by mouth Three times a day., Historical Med busPIRone (BUSPAR) 10 mg tablet Take 10 mg by mouth Three times a day., Historical Med pantoprazole (PROTONIX) [address] tablet Take 40 mg by mouth Once Daily., Historical Med desvenlafaxine succinate (PRISTIQ) 50 mg tablet Take 50 mg by mouth Once Daily. Take 25mg daily, Historical Med gabapentin (NEURONTIN) 100 mg capsule Take 100 mg by mouth Twice a day., Historical Med fluticasone propionate (FLONASE) 50 mcg/Actuation nasal spray Prather 50 mcg in each nostril Once Daily. One spray both nostrils daily, Historical Med ferrous sulfate 325 mg (65 mg iron) DR tablet Take 325 mg by mouth Once Daily., Historical Med Spironolacton-Hydrochlorothiaz 50-50 mg Tab Take 50 mg by mouth Twice a day., Historical Med topiramate (TOPAMAX) 25 mg Take 25 mg by mouth Once Daily., Historical Med Patient Instructions: No discharge procedures on file. Activity: activity as tolerated Diet: Regular Diet Wound Care: none needed Follow up: PCP within one week Signed: Tod Son DO 07/10/2024 [facility] History of Present illness Narrative* Clifford Archuleta RN - 07/10/2024 2:46 PM EDT Discharge instructions given to patient. All information discussed with patient, including upcomingappointments and medication adjustments. Patient given opportunity to ask questions. Patient verbalized understanding. IV was removed without complications. Patient escorted off unit via wheelchair and safely placed in vehicle. * Clifford Archuleta RN - 07/10/2024 1:46 PM EDT [facility] with Brandi [facility] to notify them patient is being discharged and is ready for transportation. * Clifford Archuleta RN - 07/10/2024 7:12 AM EDT Handoff report received from Dana CAO. Questions answered per policy. * Mary Ellen Chino RN - 07/10/2024 12:22 AM EDT 24HR CHART CHECK COMPLETE. * Kraig Fernando LPN - 07/09/2024 6:17 PM EDT Pt called out with leg cramps primary nurse went to assist patient she yells you come in here after it eases up. Primary nurse explains to patient she had just called out and I needed to know what was happening so I could help her she yells Go to hell and get out of my room I dont want your help.Nurse told patient to use call light if she needed assistance. * Son, Tod, DO - 07/09/2024 6:06 PM EDT HOSPITAL MEDICINE PROGRESS NOTE Patient: Carolina Hightower Room: 4D189/5N024R Admit Date: 07/08/2024 Hospital Day: LOS: 0 days Current Date: 07/09/2024 Chief Complaint - follow-up for Alcoholic cirrhosis of liver with ascites (CMS/HCC) Subjective/Interval History: patient evaluated following paracentesis today Relevant ROS: Review of Systems Constitutional: Negative for chills and fever. Respiratory: Negative for shortness of breath. Cardiovascular: Negative for chest pain. Gastrointestinal: Negative for abdominal pain. Neurological: Negative for dizziness. Physical Exam for 07/09/2024 Blood pressure 120/70, pulse 70, temperature 97.9 F (36.6 C), temperature source Oral, resp. rate 20, height 5' 2 (157.5 cm), weight 77.9 kg (171 lb 11.2 oz), SpO2 99%. Physical Exam Vitals and nursing note reviewed. Constitutional: General: She is awake. Appearance: Normal appearance. HENT: Head: Atraumatic. Nose: Nose normal. Eyes: Conjunctiva/sclera: Conjunctivae normal. Cardiovascular: Rate and Rhythm: Normal rate and regular rhythm. Pulses: Normal pulses. Heart sounds: Normal heart sounds. Pulmonary: Effort: Pulmonary effort is normal. No respiratory distress. Breath sounds: Normal breath sounds. Abdominal: General: There is no distension. Palpations: Abdomen is soft. Tenderness: There is no abdominal tenderness. Musculoskeletal: General: No signs of injury. Skin: General: Skin is warm and dry. Neurological: General: No focal deficit present. Mental Status: She is alert. Mental status is at baseline. Psychiatric: Mood and Affect: Mood normal. Behavior: Behavior is cooperative. Labs and Imaging: Recent Labs 07/09/24 0416 07/08/24 1823 WBC 7.6 6.9 RBC 3.77* 3.63* HGB 12.3 11.9* HCT 35.0 33.4 MCV 92.8 91.8 PLATELETCNT 83* 76* SODIUM 136 137 POTASSIUM 4.2 4.2 CHLORIDE 109 110 CO2 21 24 GLUCOSE 77 94 BUN 13 13 CREATININE 0.9 0.8 CALCIUM 9.2 9.3 TBILIRUBIN 1.9* 1.7* ALP 96 108 AST 89* 78* ALBUMIN 3.1* 3.0* INR -- 1.4* Assessment and Plan Hospital Problems and Relevant comorbid conditions: Principal Problem: Alcoholic cirrhosis of liver with ascites (CMS/HCC) Active Problems: Chronic hepatitis C with cirrhosis (CMS/HCC) Alcoholic cirrhosis with abdominal pain/ascites-paracentesis today. Await results started on Rocephin until then. Advance diet as tolerated.plan for return to inpatient care on discharge. Chronic hepatitis C-follows with GI outpatient Opioid use disorder Stimulant use disorder Total bilirubin elevation-currently monitor DVT ppx: SCD If ongoing improvement likely discharge tomorrow --- Assessment and plan generated using problem oriented charting. I have personally reviewed the previous A/P notes and have included what is applicable today. Signed, Tod Son DO 07/09/2024 * Bozena Kline - 07/09/2024 11:44 AM EDT Attempted to contact [facility] for dcp. No answer at this time. Notified Wellness SW of possible dc tomorrow. Valentine Kline, POT LINING SUPERVISOR, EXTENSION SERVICE AGENT Brokerage Purchase And Sale Clerk * Kraig Fernando LPN - 07/09/2024 10:22 AM EDT Called [facility] at [phone] spoke to [facility] for medication verification, stated she would send to nurse for that information. Fax number provided. * Kraig Fernando LPN - 07/09/2024 9:35 AM EDT Pt in room from procedure. A/Ox3. NAD noted. Site on right side clean dry. No drainage noted. IV site saline locked. No redness or swelling noted. Pt states no needs at this time. * Yumiko Rivas, NASH - 07/09/2024 3:47 AM EDT Pt arrived to [id number]. Pt is AOx3. No signs of distress noted. Pt states she is having anxiety from being in ER for 12 hours. She is a resident at [facility] in [place], [place]. Pt is unable to state what medications she takes, attempted to call the facility but no answer. Will attempt to call facility in the morning. Bed in lowest locked position, call light within reach. Will continue to monitor. * Mary Ellen Chino RN - 07/09/2024 3:29 AM EDT ADMISSION CHART CHECK COMPLETE. [facility]* Care Plan Note - Clifford Archuleta, NASH - 07/10/2024 2:16 PM EDT Problem: Falls, High Risk For Goal: Absence of falls Description: Interventions: - Non-skid footwear with ambulation - Assist/supervise all transfers and ambulation - Exercise program for strengthening - Address p's during each patient encounter - Remain with patient when on bsc or in bathroom - Apply bed alarm system - Chair/wheelchair locked - Siderails up x 2 - Minimize line tethering - Room near nurses' station - Walkways free of clutter - Night light on evening and night - Room door open unless contraindicated by isolation - Necessities within reach - Appropriate fall bracelet on at all times - Education, fall prevention - Reorient patient to environment as appropriate - Medication review - Remind patient to call for assistance -Bed in low position -Bed wheels locked 07/10/2024 1415 by Clifford Archuleta RN Outcome: Adequate for Discharge 07/10/2024 141 by Clifford Archuleta RN Outcome: Adequate for Discharge 07/10/2024 141 by Clifford Archuleta RN Outcome: Ongoing Problem: Discharge Planning Goal: Knowledge of discharge instructions Description: Interventions: 1. Consult social work for post discharge needs 2. Education, activity restrictions 3. Education, post discharge follow up 4. Education, prescribed medication 5. Education, when to call provider 6. Education, discharge diet 07/10/2024 141 by Clifford Archuleta RN Outcome: Adequate for Discharge 07/10/2024 141 by Clifford Archuleta RN Outcome: Adequate for Discharge 07/10/2024 141 by Clifford Archuleta RN Outcome: Ongoing Problem: Activity Intolerance Goal: Improved activity tolerance Description: Interventions: 1. Education, prescribed activity level 2. Progressive ambulation program 07/10/2024 141 by Clifford Archuleta RN Outcome: Adequate for Discharge 07/10/2024 141 by Clifford Archuleta RN Outcome: Adequate for Discharge 07/10/2024 141 by Clifford Archuleta RN Outcome: Ongoing Problem: Fluid Volume, Imbalanced, Risk for Goal: Balanced intake and output Description: Interventions: 1. Body weight monitoring 2. Intake and output measurments 07/10/2024 141 by Clifford Archuleta RN Outcome: Adequate for Discharge 07/10/2024 141 by Clifford Archuleta RN Outcome: Adequate for Discharge 07/10/2024 141 by Clifford Archuleta RN Outcome: Ongoing Problem: Infection, Risk for Goal: Patient will be free from infection Description: Interventions: 1. Monitor for signs and symptoms of infection: fever, increased WBC, burning with urination or chills 2. Monitor insertion site for redness, tenderness, or drainage 3. Hand hygiene per CDC guidelines 4. Discontinuation of invasive devices when not needed 5. Place patient in appropriate isolation 07/10/2024 1415 by Clfiford Archuleta RN Outcome: Adequate for Discharge 07/10/2024 1413 by Clifford Arhculeta RN Outcome: Adequate for Discharge 07/10/2024 1413 by Clifford Archuleta RN Outcome: Ongoing Problem: Nutrition Deficit Goal: Adequate nutritional intake Description: Interventions: -Consult to auto parts handler -Intake and output measurement -Calorie count if indicated 07/10/2024 141 by Clifford Archuleta RN Outcome: Adequate for Discharge 07/10/2024 1413 by Clifford Archuleta RN Outcome: Adequate for Discharge 07/10/2024 141 by Clifford Archuleta RN Outcome: Ongoing Goal: Body weight within specified parameters Description: Interventions: - Body weight measurement 07/10/2024 141 by Clifford Archuleta RN Outcome: Adequate for Discharge 07/10/2024 1413 by Clifford Archuleta RN Outcome: Adequate for Discharge 07/10/2024 1413 by Clifford Archuleta RN Outcome: Ongoing Problem: Pain, Acute Goal: Communication of presence of pain Description: Interventions: - Nonpharmacologic pain management - Medication administration - Education, pain scale 07/10/2024 141 by Clifford Archuleta RN Outcome: Adequate for Discharge 07/10/2024 141 by Clifford Archuleta RN Outcome: Adequate for Discharge 07/10/2024 1413 by Clifford Archuleta RN Outcome: Ongoing Problem: Skin Integrity, Impaired, Risk for Goal: Absence of pressure injury Description: Interventions: - Skin assessment - Patient repositioning every 2 hours if decreased mobility 07/10/2024 141 by Clifford Archuleta, NASH Outcome: Adequate for Discharge 07/10/2024 141 by Clifford Archuleta RN Outcome: Adequate for Discharge 07/10/2024 141 by Clifford Archuleta RN Outcome: Ongoing Problem: Deep Venous Thrombosis, Risk of Goal: Absence of deep venous thrombosis Description: Interventions: - Deep venous thrombosis risk assessment - Ensure patient is receiving antithrombotic medication for VTE prophylaxis - Activity promotion - Graduated anti-embolic stocking management - Intermittent pneumatic compression management. 07/10/2024 141 by Clifford Archuleta RN Outcome: Adequate for Discharge 07/10/2024 141 by Clifford Archuleta RN Outcome: Adequate for Discharge 07/10/2024 141 by Clifford Archuleta RN Outcome: Ongoing Goal: Knowledge of deep venous thrombosis Description: Interventions: - Education, deep venous thrombosis signs and symptoms - Education, ambulation - Education, graduated anti-embolic stockings - Education, deep venous thrombosis prophalaxis 07/10/2024 141 by Clifford Archuleta RN Outcome: Adequate for Discharge 07/10/2024 141 by Clifford Archuleta RN Outcome: Adequate for Discharge 07/10/20241412 by Clifford Archuleta RN Outcome: Ongoing [facility] M[facility] Notes* Care Plan Note - Clifford Archuleta RN - 07/10/2024 2:16 PM EDT Problem: Falls, High Risk For Goal: Absence of falls Description: Interventions: - Non-skid footwear with ambulation - Assist/supervise all transfers and ambulation - Exercise program for strengthening - Address p's during each patient encounter - Remain with patient when on bsc or in bathroom - Apply bed alarm system - Chair/wheelchair locked - Siderails up x 2 - Minimize line tethering - Room near nurses' station - Walkways free of clutter - Night light on evening and night - Room door open unless contraindicated by isolation - Necessities within reach - Appropriate fall bracelet on at all times - Education, fall prevention - Reorient patient to environment as appropriate - Medication review - Remind patient to call for assistance -Bed in low position -Bed wheels locked 07/10/20241414 by Clifford Archuleta, NASH Outcome: Adequate for Discharge 07/10/2024 141 by Clifford Archuleta RN Outcome: Adequate for Discharge 07/10/20241412 by Clifford Archuleta RN Outcome: Ongoing Problem: Discharge Planning Goal: Knowledge of discharge instructions Description: Interventions: 1. Consult social work for post discharge needs 2. Education, activity restrictions 3. Education, post discharge follow up 4. Education, prescribed medication 5. Education, when to call provider 6. Education, discharge diet 07/10/20241414 by Clifford Archuleta RN Outcome: Adequate for Discharge 07/10/20241412 by Clifford Archuleta RN Outcome: Adequate for Discharge 07/10/2024 141 by Clifford Archuleta RN Outcome: Ongoing Problem: Activity Intolerance Goal: Improved activity tolerance Description: Interventions: 1. Education, prescribed activity level 2. Progressive ambulation program 07/10/20241414 by Clifford Archuleta RN Outcome: Adequate for Discharge 07/10/20241412 by Clifford Archuleta RN Outcome: Adequate for Discharge 07/10/20241412 by Clifford Archuleta RN Outcome: Ongoing Problem: Fluid Volume, Imbalanced, Risk for Goal: Balanced intake and output Description: Interventions: 1. Body weight monitoring 2. Intake and output measurments 07/10/20241414 by Clifford Archuleta RN Outcome: Adequate for Discharge 07/10/20241412 by Clifford Archuleta RN Outcome: Adequate for Discharge 07/10/20241412 by Clifford Archuleta RN Outcome: Ongoing Problem: Infection, Risk for Goal: Patient will be free from infection Description: Interventions: 1. Monitor for signs and symptoms of infection: fever, increased WBC, burning with urination or chills 2. Monitor insertion site for redness, tenderness, or drainage 3. Hand hygiene per CDC guidelines 4. Discontinuation of invasive devices when not needed 5. Place patient in appropriate isolation 07/10/20241414 by Clifford Archuleta RN Outcome: Adequate for Discharge 07/10/20241412 by Clifford Archuleta RN Outcome: Adequate for Discharge 07/10/20241412 by Clifford Archuleta RN Outcome: Ongoing Problem: Nutrition Deficit Goal: Adequate nutritional intake Description: Interventions: -Consult to auto parts handler -Intake and output measurement -Calorie count if indicated 07/10/2024 1415 by Clifford Archuleta RN Outcome: Adequate for Discharge 07/10/2024 1413 by Clifford Archuleta RN Outcome: Adequate for Discharge 07/10/2024 1413 by Clifford Archuleta RN Outcome: Ongoing Goal: Body weight within specified parameters Description: Interventions: - Body weight measurement 07/10/2024 1415 by Clifford Archuleta RN Outcome: Adequate for Discharge 07/10/2024 1413 by Clifford Archuleta RN Outcome: Adequate for Discharge 07/10/2024 141 by Clifford Archuleta RN Outcome: Ongoing Problem: Pain, Acute Goal: Communication of presence of pain Description: Interventions: - Nonpharmacologic pain management - Medication administration - Education, pain scale 07/10/2024 141 by Clifford Archuleta RN Outcome: Adequate for Discharge 07/10/2024 141 by Clifford Archuleta RN Outcome: Adequate for Discharge 07/10/2024 141 by Clifford Archuleta RN Outcome: Ongoing Problem: Skin Integrity, Impaired, Risk for Goal: Absence of pressure injury Description: Interventions: - Skin assessment - Patient repositioning every 2 hours if decreased mobility 07/10/2024 141 by Clifford Archuleta RN Outcome: Adequate for Discharge 07/10/2024 1413 by Clifford Archuleta RN Outcome: Adequate for Discharge 07/10/2024 141 by Clifford Archuleta RN Outcome: Ongoing Problem: Deep Venous Thrombosis, Risk of Goal: Absence of deep venous thrombosis Description: Interventions: - Deep venous thrombosis risk assessment - Ensure patient is receiving antithrombotic medication for VTE prophylaxis - Activity promotion - Graduated anti-embolic stocking management - Intermittent pneumatic compression management. 07/10/2024 141 by Clifford Archuleta RN Outcome: Adequate for Discharge 07/10/2024 141 by Clifford Archuleta RN Outcome: Adequate for Discharge 07/10/2024 141 by Clifford Archuleta RN Outcome: Ongoing Goal: Knowledge of deep venous thrombosis Description: Interventions: - Education, deep venous thrombosis signs and symptoms - Education, ambulation - Education, graduated anti-embolic stockings - Education, deep venous thrombosis prophalaxis 07/10/2024 141 by Clifford Archuleta RN Outcome: Adequate for Discharge 07/10/2024 141 by Clifford Archuleta RN Outcome: Adequate for Discharge 07/10/2024 141 by Clifford Archuleta RN Outcome: Ongoing * Care Plan Note - Clifford Archuleta RN - 07/10/2024 2:13 PM EDT Problem: Falls, High Risk For Goal: Absence of falls Description: Interventions: - Non-skid footwear with ambulation - Assist/supervise all transfers and ambulation - Exercise program for strengthening - Address p's during each patient encounter - Remain with patient when on bsc or in bathroom - Apply bed alarm system - Chair/wheelchair locked - Siderails up x 2 - Minimize line tethering - Room near nurses' station - Walkways free of clutter - Night light on evening and night - Room door open unless contraindicated by isolation - Necessities within reach - Appropriate fall bracelet on at all times - Education, fall prevention - Reorient patient to environment as appropriate - Medication review - Remind patient to call for assistance -Bed in low position -Bed wheels locked 07/10/2024 141 by Clifford Archuleta RN Outcome: Adequate for Discharge 07/10/2024 141 by Clifford Archuleta RN Outcome: Ongoing Problem: Discharge Planning Goal: Knowledge of discharge instructions Description: Interventions: 1. Consult social work for post discharge needs 2. Education, activity restrictions 3. Education, post discharge follow up 4. Education, prescribed medication 5. Education, when to call provider 6. Education, discharge diet 07/10/2024 141 by Clifford Archuleta RN Outcome: Adequate for Discharge 07/10/2024 141 by Clifford Archuleta RN Outcome: Ongoing Problem: Activity Intolerance Goal: Improved activity tolerance Description: Interventions: 1. Education, prescribed activity level 2. Progressive ambulation program 07/10/2024 141 by Clifford Archuleta RN Outcome: Adequate for Discharge 07/10/20241412 by Clifford Archuleta RN Outcome: Ongoing Problem: Fluid Volume, Imbalanced, Risk for Goal: Balanced intake and output Description: Interventions: 1. Body weight monitoring 2. Intake and output measurments 07/10/2024 141 by Clifford Archuleta RN Outcome: Adequate for Discharge 07/10/2024 141 by Clifford Archuleta RN Outcome: Ongoing Problem: Infection, Risk for Goal: Patient will be free from infection Description: Interventions: 1. Monitor for signs and symptoms of infection: fever, increased WBC, burning with urination or chills 2. Monitor insertion site for redness, tenderness, or drainage 3. Hand hygiene per CDC guidelines 4. Discontinuation of invasive devices when not needed 5. Place patient in appropriate isolation 07/10/20241412 by Clifford Archuleta RN Outcome: Adequate for Discharge 07/10/2024 141 by Clifford Archuleta RN Outcome: Ongoing Problem: Nutrition Deficit Goal: Adequate nutritional intake Description: Interventions: -Consult to auto parts handler -Intake and output measurement -Calorie count if indicated 07/10/20241412 by Clifford Archuleta RN Outcome: Adequate for Discharge 07/10/20241412 by Clifford Archuleta RN Outcome: Ongoing Goal: Body weight within specified parameters Description: Interventions: - Body weight measurement 07/10/2024 141 by Clifford Archuleta RN Outcome: Adequate for Discharge 07/10/2024 141 by Clifford Archuleta RN Outcome: Ongoing Problem: Pain, Acute Goal: Communication of presence of pain Description: Interventions: - Nonpharmacologic pain management - Medication administration - Education, pain scale 07/10/20241412 by Clifford Archuleta RN Outcome: Adequate for Discharge 07/10/20241412 by Clifford Archuleta RN Outcome: Ongoing Problem: Skin Integrity, Impaired, Risk for Goal: Absence of pressure injury Description: Interventions: - Skin assessment - Patient repositioning every 2 hours if decreased mobility 07/10/2024 141 by Clifford Archuleta RN Outcome: Adequate for Discharge 07/10/2024 141 by Clifford Archuleta RN Outcome: Ongoing Problem: Deep Venous Thrombosis, Risk of Goal: Absence of deep venous thrombosis Description: Interventions: - Deep venous thrombosis risk assessment - Ensure patient is receiving antithrombotic medication for VTE prophylaxis - Activity promotion - Graduated anti-embolic stocking management - Intermittent pneumatic compression management. 07/10/2024 141 by Clifford Archuleta RN Outcome: Adequate for Discharge 07/10/2024 141 by Clifford Archuleta RN Outcome: Ongoing Goal: Knowledge of deep venous thrombosis Description: Interventions: - Education, deep venous thrombosis signs and symptoms - Education, ambulation - Education, graduated anti-embolic stockings - Education, deep venous thrombosis prophalaxis 07/10/20241412 by Clifford Archuleta RN Outcome: Adequate for Discharge 07/10/20241412 by Clifford Archuleta RN Outcome: Ongoing * Handoff Documentation - Nita Anne RN - 07/10/2024 7:05 AM EDT Bedside handoff care report given to NASH Horton. All questions and concerns answered. Patient is resting in bed. Breathing even and unlabored. Alert and oriented x 3. No s/s of acute distress noted. Bed in lowest locked position, sr up x 3. Walkways free of clutter. Bedside table and call light in reach. No reports of pain at this time. Environmental scans complete for pt safety. * Care Plan Note - Rachel Ronquillo RN - 07/10/2024 5:46 AM EDT Problem: Falls, High Risk For Goal: Absence of falls Description: Interventions: - Non-skid footwear with ambulation - Assist/supervise all transfers and ambulation - Exercise program for strengthening - Address p's during each patient encounter - Remain with patient when on bsc or in bathroom - Apply bed alarm system - Chair/wheelchair locked - Siderails up x 2 - Minimize line tethering - Room near nurses' station - Walkways free of clutter - Night light on evening and night - Room door open unless contraindicated by isolation - Necessities within reach - Appropriate fall bracelet on at all times - Education, fall prevention - Reorient patient to environment as appropriate - Medication review - Remind patient to call for assistance -Bed in low position -Bed wheels locked Outcome: Ongoing Problem: Discharge Planning Goal: Knowledge of discharge instructions Description: Interventions: 1. Consult social work for post discharge needs 2. Education, activity restrictions 3. Education, post discharge follow up 4. Education, prescribed medication 5. Education, when to call provider 6. Education, discharge diet Outcome: Ongoing Problem: Activity Intolerance Goal: Improved activity tolerance Description: Interventions: 1. Education, prescribed activity level 2. Progressive ambulation program Outcome: Ongoing Problem: Fluid Volume, Imbalanced, Risk for Goal: Balanced intake and output Description: Interventions: 1. Body weight monitoring 2. Intake and output measurments Outcome: Ongoing Problem: Infection, Risk for Goal: Patient will be free from infection Description: Interventions: 1. Monitor for signs and symptoms of infection: fever, increased WBC, burning with urination or chills 2. Monitor insertion site for redness, tenderness, or drainage 3. Hand hygiene per CDC guidelines 4. Discontinuation of invasive devices when not needed 5. Place patient in appropriate isolation Outcome: Ongoing Problem: Nutrition Deficit Goal: Adequate nutritional intake Description: Interventions: -Consult to auto parts handler -Intake and output measurement -Calorie count if indicated Outcome: Ongoing Goal: Body weight within specified parameters Description: Interventions: - Body weight measurement Outcome: Ongoing Problem: Pain, Acute Goal: Communication of presence of pain Description: Interventions: - Nonpharmacologic pain management - Medication administration - Education, pain scale Outcome: Ongoing Problem: Skin Integrity, Impaired, Risk for Goal: Absence of pressure injury Description: Interventions: - Skin assessment - Patient repositioning every 2 hours if decreased mobility Outcome: Ongoing Problem: Deep Venous Thrombosis, Risk of Goal: Absence of deep venous thrombosis Description: Interventions: - Deep venous thrombosis risk assessment - Ensure patient is receiving antithrombotic medication for VTE prophylaxis - Activity promotion - Graduated anti-embolic stocking management - Intermittent pneumatic compression management. Outcome: Ongoing Goal: Knowledge of deep venous thrombosis Description: Interventions: - Education, deep venous thrombosis signs and symptoms - Education, ambulation - Education, graduated anti-embolic stockings - Education, deep venous thrombosis prophalaxis Outcome: Ongoing * End of Shift Note - Rachel Ronquillo RN - 07/10/2024 5:43 AM EDT Nursing End of Shift Summary Pertinent changes to patient conditions and/or care this shift: no change. Vital Signs Weight: 76.7 kg (169 lb 1.5 oz) (07/10/24 0500) Temp: 98.6 F (37 C) Temp Source: Oral Heart Rate:79 BP: 109/62 Respirations: 18 Oxygen Saturation SpO2: 100 % O2 Delivery: Room air O2 Device: None (Room air) Incentive Spirometry Incentive Spirometry: No Diet Diet Cardiac; Intake/Output Totals Intake/Output 07/09/24 0700 - 07/10/24 0659 [id number] [id number] Total Intake P.O. 2 480 2512 I.V. 11 -- 11 Blood 0 -- 0 Other 0 -- 0 Total Intake 3 480 2523 Output Urine 0 -- 0 Urine 0 -- 0 Weight of Briefs in mL 0 -- 0 Urine Occurrence 2 x -- 2 x Emesis/NG output 0 -- 0 Emesis 0 -- 0 Emesis Occurrence 0 x -- 0 x Other 0 -- 0 Other 0 -- 0 Stool 0 -- 0 Stool Occurrence 1 x -- 1 x Stool 0 -- 0 Blood 0 -- 0 Blood output 0 -- 0 Total Output 0 -- 0 Activity Activity: Bedrest Level of Assistance: Independent Activity Tolerance: Other (Comment) Ambulation Attempts this Shift: Did not ambulate this shift Telemetry Cardiac Rhythm: Normal Sinus Rhythm (07/10/24 0400) Telemetry Abnormalities N/A Labs No results found for: FUNCTIONAL, PLTAGGREG Lab Results Component Value Date RBC 3.20 (L) 07/10/2024 WBC 5.2 07/10/2024 HCT 29.4 (L) 07/10/2024 HGB 10.5 (L) 07/10/2024 PLATELETCNT 63 (L) 07/10/2024 MCH 32.9 07/10/2024 MCHC 35.7 07/10/2024 MCV 92.1 07/10/2024 MPV 9.5 07/10/2024 Lab Results Component Value Date ALBUMIN 3.1 (L) 07/10/2024 SODIUM 138 07/10/2024 POTASSIUM 4.3 07/10/2024 CHLORIDE 107 07/10/2024 CO2 25 07/10/2024 ANIONGAP 6 07/10/2024 GLUCOSE 114 (H) 07/10/2024 CREATININE 0.8 07/10/2024 BUN 9 07/10/2024 CALCIUM 9.0 07/10/2024 PROTEINTOTAL 5.7 (L) 07/10/2024 TBILIRUBIN 1.6 (H) 07/10/2024 ALP 84 07/10/2024 AST 69 (H) 07/10/2024 ALTSGPT 44 07/10/2024 OSMOLALITY 275 07/10/2024 AGRATIO 1.2 07/10/2024 BC 11 07/10/2024 ESTIMATEDGFR 76 07/10/2024 Taking all meds No Any PRN meds given? Yes gabapentin,morphine,melatonin Current IV Infusions Diuretics SDOH Screen Assessed? Completed Discharge Planning [facility] Expected Discharge Date Education Provided Other (Comment) medication importance. * Handoff Documentation - Rachel Ronquillo RN - 07/09/2024 7:58 PM EDT Took over care of the patient from Drea CAO.Patient resting in bed. Fall precautions in place. No distress noted. Call light within reach. Complete environmental scan/screen at this time to ensure patient safety. Will continue to monitor. * Handoff Documentation - Nita Anne RN - 07/09/2024 7:48 PM EDT Bedside handoff care report received from NASH Cornell. All questions and concerns answered. Patient is resting in bed. Breathing even and unlabored. Alert and oriented x 3. No s/s of acute distress noted. Bed in lowest locked position, sr up x 2. Walkways free of clutter. Bedside table and call lightin reach. No reports of pain at this time. Environmental scans complete for pt safety. * End of Shift Note - Kraig Fernando LPN - 07/09/2024 6:45 PM EDT Nursing End of Shift Summary Pertinent changes to patient conditions and/or care this shift: 4400 removed from Para, Vital Signs Weight: 77.9 kg (171 lb 11.2 oz) (07/09/24228) Temp: 97.9 F (36.6 C) Temp Source: Oral Heart Rate:70 BP: 120/70 Respirations: 20 Oxygen Saturation SpO2: 99 % O2 Delivery: Room air O2 Device: None (Room air) Incentive Spirometry Incentive Spirometry: No Diet Diet Cardiac; Intake/Output Totals Intake/Output 07/08/24 0700 - 07/09/24 0659 07/09/24 0700 - 07/10/24 0659 [id number] Total 6601-1104 9488-5509 Total Intake P.O. -- 549 389 9149 -- 203 I.V. -- 0 0 11 -- 11 Blood -- 0 0 0 -- 0 Other -- 0 0 0 -- 0 Total Intake -- 451 397 5654 -- 204 Output Urine -- 0 0 0 -- 0 Urine -- 0 0 0 -- 0 Weight of Briefs in mL -- 0 0 0 -- 0 Urine Occurrence -- 1 x 1 x 2 x -- 2 x Emesis/NG output -- 0 0 0 -- 0 Emesis -- 0 0 0 -- 0 Emesis Occurrence -- 0 x 0 x 0 x -- 0 x Other -- 0 0 0 -- 0 Other -- 0 0 0 -- 0 Stool -- 0 0 0 -- 0 Stool Occurrence -- 0 x 0 x 1 x -- 1 x Stool -- 0 0 0 -- 0 Blood -- 0 0 0 -- 0 Blood output -- 0 0 0 -- 0 Total Output -- 0 0 0 -- 0 Activity Activity: Up ad cyn Level of Assistance: Independent Activity Tolerance: Tolerated Well Ambulation Attempts this Shift: 1 Telemetry Cardiac Rhythm: Normal Sinus Rhythm (07/09/24 1600) Telemetry Abnormalities N/A Labs No results found for: FUNCTIONAL, PLTAGGREG Lab Results Component Value Date RBC 3.77 (L) 07/09/2024 WBC 7.6 07/09/2024 HCT 35.0 07/09/2024 HGB 12.3 07/09/2024 PLATELETCNT 83 (L) 07/09/2024 MCH 32.6 07/09/2024 MCHC 35.1 07/09/2024 MCV 92.8 07/09/2024 MPV 9.6 07/09/2024 Lab Results Component Value Date ALBUMIN 3.1 (L) 07/09/2024 SODIUM 136 07/09/2024 POTASSIUM 4.2 07/09/2024 CHLORIDE 109 07/09/2024 CO2 21 07/09/2024 ANIONGAP 6 07/09/2024 GLUCOSE 77 07/09/2024 CREATININE 0.9 07/09/2024 BUN 13 07/09/2024 CALCIUM 9.2 07/09/2024 PROTEINTOTAL 7.0 07/09/2024 TBILIRUBIN 1.9 (H) 07/09/2024 ALP 96 07/09/2024 AST 89 (H) 07/09/2024 ALTSGPT 54 07/09/2024 OSMOLALITY 271 07/09/2024 AGRATIO 0.8 07/09/2024 BC 14 07/09/2024 ESTIMATEDGFR 66 07/09/2024 Taking all meds Yes Any PRN meds given? Yes Morphine Current IV Infusions Diuretics SDOH Screen Assessed? Completed Discharge Planning [facility] Expected Discharge Date Education Provided Other (Comment) N/A * Care Plan Note - Bozena Kline - 07/09/2024 2:46 PM EDT SW DISCHARGE/TREATMENT PLAN: 07/09/24 Anticipate return to the [facility] at discharge with facility for transportation. Report not needed. [facility] requests Brandi Barnes be contact to arrange transportation on dayof discharge @ [phone] Wellness is following SW will remain following AYDIN AguirreW, [employer] SERVICE AGENT [employer] Purchase And Sale Clerk * Handoff Documentation - Kraig Fernando LPN - 07/09/2024 7:00 AM EDT Received report from NASH Lu. * End of Shift Note - Yumiko Rivas RN - 07/09/2024 6:15 AM EDT Nursing End of Shift Summary Pertinent changes to patient conditions and/or care this shift: pt new admit this shift. Vital Signs Weight: 77.9 kg (171 lb 11.2 oz) (07/09/24 0229) Temp: 98 F (36.7 C) Temp Source: Oral Heart Rate:61 BP: 125/85 Respirations: 20 Oxygen Saturation SpO2: 100 % O2 Delivery: Room air O2 Device: None (Room air) Incentive Spirometry Diet Diet Cardiac; Intake/Output Totals Intake/Output 07/08/24 0700 - 07/09/24 0659 2428-8292 2067-4575 Total Intake P.O. -- 960 960 I.V. -- 0 0 Blood -- 0 0 Other -- 0 0 Total Intake -- 960 960 Output Urine -- 0 0 Urine -- 0 0 Weight of Briefs in mL -- 0 0 Urine Occurrence -- 1 x 1 x Emesis/NG output -- 0 0 Emesis -- 0 0 Emesis Occurrence -- 0 x 0 x Other -- 0 0 Other -- 0 0 Stool -- 0 0 Stool Occurrence -- 0 x 0 x Stool -- 0 0 Blood -- 0 0 Blood output -- 0 0 Total Output -- 0 0 Activity Ambulation Attempts this Shift: Did not ambulate this shift Telemetry Telemetry Abnormalities No Labs No results found for: FUNCTIONAL, PLTAGGREG Lab Results Component Value Date RBC 3.77 (L) 07/09/2024 WBC 7.6 07/09/2024 HCT 35.0 07/09/2024 HGB 12.3 07/09/2024 PLATELETCNT 83 (L) 07/09/2024 MCH 32.6 07/09/2024 MCHC 35.1 07/09/2024 MCV 92.8 07/09/2024 MPV 9.6 07/09/2024 Lab Results Component Value Date ALBUMIN 3.1 (L) 07/09/2024 SODIUM 136 07/09/2024 POTASSIUM 4.2 07/09/2024 CHLORIDE 109 07/09/2024 CO2 21 07/09/2024 ANIONGAP 6 07/09/2024 GLUCOSE 77 07/09/2024 CREATININE 0.9 07/09/2024 BUN 13 07/09/2024 CALCIUM 9.2 07/09/2024 PROTEINTOTAL 7.0 07/09/2024 TBILIRUBIN 1.9 (H) 07/09/2024 ALP 96 07/09/2024 AST 89 (H) 07/09/2024 ALTSGPT 54 07/09/2024 OSMOLALITY 271 07/09/2024 AGRATIO 0.8 07/09/2024 BC 14 07/09/2024 ESTIMATEDGFR 66 07/09/2024 Taking all meds Yes Any PRN meds given? Yes vistaril Current IV Infusions Diuretics SDOH Screen Assessed? Completed Discharge Planning [facility] Expected Discharge Date Education Provided Other (Comment) fall risks * Care Plan Note - Yumiko Rivas RN - 07/09/2024 6:15 AM EDT Problem: Falls, High Risk For Goal: Absence of falls Description: Interventions: - Non-skid footwear with ambulation - Assist/supervise all transfers and ambulation - Exercise program for strengthening - Address p's during each patient encounter - Remain with patient when on bsc or in bathroom - Apply bed alarm system - Chair/wheelchair locked - Siderails up x 2 - Minimize line tethering - Room near nurses' station - Walkways free of clutter - Night light on evening and night - Room door open unless contraindicated by isolation - Necessities within reach - Appropriate fall bracelet on at all times - Education, fall prevention - Reorient patient to environment as appropriate - Medication review - Remind patient to call for assistance -Bed in low position -Bed wheels locked 07/09/2024614 by Yumiko Rivas, NASH Outcome: Ongoing 07/09/2024613 by Yumiko Rivas, RN Outcome: Ongoing Problem: Discharge Planning Goal: Knowledge of discharge instructions Description: Interventions: 1. Consult social work for post discharge needs 2. Education, activity restrictions 3. Education, post discharge follow up 4. Education, prescribed medication 5. Education, when to call provider 6. Education, discharge diet 07/09/2024614 by Yumiko Rivas, NASH Outcome: Ongoing 07/09/2024613 by Yumiko Rivas, NASH Outcome: Ongoing Problem: Activity Intolerance Goal: Improved activity tolerance Description: Interventions: 1. Education, prescribed activity level 2. Progressive ambulation program 07/09/2024614 by Yumiko Rivas, NASH Outcome: Ongoing 07/09/2024613 by Yumiko Rivas, NASH Outcome: Ongoing Problem: Fluid Volume, Imbalanced, Risk for Goal: Balanced intake and output Description: Interventions: 1. Body weight monitoring 2. Intake and output measurments 07/09/2024614 by Yumiko Rivas, NASH Outcome: Ongoing 07/09/2024613 by Yumiko Rivas, NASH Outcome: Ongoing Problem: Infection, Risk for Goal: Patient will be free from infection Description: Interventions: 1. Monitor for signs and symptoms of infection: fever, increased WBC, burning with urination or chills 2. Monitor insertion site for redness, tenderness, or drainage 3. Hand hygiene per CDC guidelines 4. Discontinuation of invasive devices when not needed 5. Place patient in appropriate isolation 07/09/2024614 by Yumiko Rivas, RN Outcome: Ongoing 07/09/2024613 by Yumiko Rivas, NASH Outcome: Ongoing Problem: Nutrition Deficit Goal: Adequate nutritional intake Description: Interventions: -Consult to auto parts handler -Intake and output measurement -Calorie count if indicated 07/09/2024614 by Yumiko Rivas, NASH Outcome: Ongoing 07/09/2024613 by Yumiko Rivas, NASH Outcome: Ongoing Goal: Body weight within specified parameters Description: Interventions: - Body weight measurement 07/09/2024614 by Yumiko Rivas, RN Outcome: Ongoing 07/09/2024613 by Yumiko Rivas, NASH Outcome: Ongoing Problem: Pain, Acute Goal: Communication of presence of pain Description: Interventions: - Nonpharmacologic pain management - Medication administration - Education, pain scale 07/09/2024614 by Yumiko Rivas, RN Outcome: Ongoing 07/09/2024613 by Yumiko Rivas, RN Outcome: Ongoing Problem: Skin Integrity, Impaired, Risk for Goal: Absence of pressure injury Description: Interventions: - Skin assessment - Patient repositioning every 2 hours if decreased mobility 07/09/2024614 by Yumiko Rivas, RN Outcome: Ongoing 07/09/2024613 by Yumiko Rivas, NASH Outcome: Ongoing Problem: Deep Venous Thrombosis, Risk of Goal: Absence of deep venous thrombosis Description: Interventions: - Deep venous thrombosis risk assessment - Ensure patient is receiving antithrombotic medication for VTE prophylaxis - Activity promotion - Graduated anti-embolic stocking management - Intermittent pneumatic compression management. 07/09/2024614 by Yumiko Rivas, RN Outcome: Ongoing 07/09/2024613 by Yumiko Rivas, RN Outcome: Ongoing Goal: Knowledge of deep venous thrombosis Description: Interventions: - Education, deep venous thrombosis signs and symptoms - Education, ambulation - Education, graduated anti-embolic stockings - Education, deep venous thrombosis prophalaxis 07/09/2024614 by Yumiko Rivas, RN Outcome: Ongoing 07/09/2024613 by Yumiko Rivas, RN Outcome: Ongoing [facility]* Care Plan Note - Clifford Archuleta, NASH - 07/10/2024 2:13 PM EDT Problem: Falls, High Risk For Goal: Absence of falls Description: Interventions: - Non-skid footwear with ambulation - Assist/supervise all transfers and ambulation - Exercise program for strengthening - Address p's during each patient encounter - Remain with patient when on bsc or in bathroom - Apply bed alarm system - Chair/wheelchair locked - Siderails up x 2 - Minimize line tethering - Room near nurses' station - Walkways free of clutter - Night light on evening and night - Room door open unless contraindicated by isolation - Necessities within reach - Appropriate fall bracelet on at all times - Education, fall prevention - Reorient patient to environment as appropriate - Medication review - Remind patient to call for assistance -Bed in low position -Bed wheels locked 07/10/20241412 by Clifford Archuleta RN Outcome: Adequate for Discharge 07/10/20241412 by Clifford Archuleta RN Outcome: Ongoing Problem: Discharge Planning Goal: Knowledge of discharge instructions Description: Interventions: 1. Consult social work for post discharge needs 2. Education, activity restrictions 3. Education, post discharge follow up 4. Education, prescribed medication 5. Education, when to call provider 6. Education, discharge diet 07/10/20241412 by Clifford Archuleta RN Outcome: Adequate for Discharge 07/10/20241412 by Clifford Archuleta RN Outcome: Ongoing Problem: Activity Intolerance Goal: Improved activity tolerance Description: Interventions: 1. Education, prescribed activity level 2. Progressive ambulation program 07/10/20241412 by Clifford Archuleta RN Outcome: Adequate for Discharge 07/10/20241412 by Clifford Archuleta RN Outcome: Ongoing Problem: Fluid Volume, Imbalanced, Risk for Goal: Balanced intake and output Description: Interventions: 1. Body weight monitoring 2. Intake and output measurments 07/10/20241412 by Clifford Archuleta RN Outcome: Adequate for Discharge 07/10/20241412 by Clifford Archuleta RN Outcome: Ongoing Problem: Infection, Risk for Goal: Patient will be free from infection Description: Interventions: 1. Monitor for signs and symptoms of infection: fever, increased WBC, burning with urination or chills 2. Monitor insertion site for redness, tenderness, or drainage 3. Hand hygiene per CDC guidelines 4. Discontinuation of invasive devices when not needed 5. Place patient in appropriate isolation 07/10/20241412 by Clifford Archuleta RN Outcome: Adequate for Discharge 07/10/20241412 by Clifford Archuleta RN Outcome: Ongoing Problem: Nutrition Deficit Goal: Adequate nutritional intake Description: Interventions: -Consult to auto parts handler -Intake and output measurement -Calorie count if indicated 07/10/20241412 by Clifford Archuleta RN Outcome: Adequate for Discharge 07/10/20241412 by Clifford Archuleta RN Outcome: Ongoing Goal: Body weight within specified parameters Description: Interventions: - Body weight measurement 07/10/20241412 by Clifford Archuleta RN Outcome: Adequate for Discharge 07/10/20241412 by Clifford Archuleta RN Outcome: Ongoing Problem: Pain, Acute Goal: Communication of presence of pain Description: Interventions: - Nonpharmacologic pain management - Medication administration - Education, pain scale 07/10/20241412 by Clifford Archuleta RN Outcome: Adequate for Discharge 07/10/20241412 by Clifford Archuleta RN Outcome: Ongoing Problem: Skin Integrity, Impaired, Risk for Goal: Absence of pressure injury Description: Interventions: - Skin assessment - Patient repositioning every 2 hours if decreased mobility 07/10/20241412 by Clifford Archuleta RN Outcome: Adequate for Discharge 07/10/20241412 by Clifford Archuleta RN Outcome: Ongoing Problem: Deep Venous Thrombosis, Risk of Goal: Absence of deep venous thrombosis Description: Interventions: - Deep venous thrombosis risk assessment - Ensure patient is receiving antithrombotic medication for VTE prophylaxis - Activity promotion - Graduated anti-embolic stocking management - Intermittent pneumatic compression management. 07/10/20241412 by Clifford Archuleta RN Outcome: Adequate for Discharge 07/10/20241412 by Clifford Archuleta RN Outcome: Ongoing Goal: Knowledge of deep venous thrombosis Description: Interventions: - Education, deep venous thrombosis signs and symptoms - Education, ambulation - Education, graduated anti-embolic stockings - Education, deep venous thrombosis prophalaxis 07/10/20241412 by Clifford Archuleta RN Outcome: Adequate for Discharge 07/10/20241412 by Gill-Alley, Clifford, RN Outcome: Ongoing [facility]* Handoff Documentation - Nita Anne RN - 07/10/2024 7:05 AM EDT Bedside handoff care report given to NASH Horton. All questions and concerns answered. Patient is resting in bed. Breathing even and unlabored. Alert and oriented x 3. No s/s of acute distress noted. Bed in lowest locked position, sr up x 3. Walkways free of clutter. Bedside table and call light in reach. No reports of pain at this time. Environmental scans complete for pt safety. [facility]* Care Plan Note - Rachel Ronquillo RN - 07/10/2024 5:46 AM EDT Problem: Falls, High Risk For Goal: Absence of falls Description: Interventions: - Non-skid footwear with ambulation - Assist/supervise all transfers and ambulation - Exercise program for strengthening - Address p's during each patient encounter - Remain with patient when on bsc or in bathroom - Apply bed alarm system - Chair/wheelchair locked - Siderails up x 2 - Minimize line tethering - Room near nurses' station - Walkways free of clutter - Night light on evening and night - Room door open unless contraindicated by isolation - Necessities within reach - Appropriate fall bracelet on at all times - Education, fall prevention - Reorient patient to environment as appropriate - Medication review - Remind patient to call for assistance -Bed in low position -Bed wheels locked Outcome: Ongoing Problem: Discharge Planning Goal: Knowledge of discharge instructions Description: Interventions: 1. Consult social work for post discharge needs 2. Education, activity restrictions 3. Education, post discharge follow up 4. Education, prescribed medication 5. Education, when to call provider 6. Education, discharge diet Outcome: Ongoing Problem: Activity Intolerance Goal: Improved activity tolerance Description: Interventions: 1. Education, prescribed activity level 2. Progressive ambulation program Outcome: Ongoing Problem: Fluid Volume, Imbalanced, Risk for Goal: Balanced intake and output Description: Interventions: 1. Body weight monitoring 2. Intake and output measurments Outcome: Ongoing Problem: Infection, Risk for Goal: Patient will be free from infection Description: Interventions: 1. Monitor for signs and symptoms of infection: fever, increased WBC, burning with urination or chills 2. Monitor insertion site for redness, tenderness, or drainage 3. Hand hygiene per CDC guidelines 4. Discontinuation of invasive devices when not needed 5. Place patient in appropriate isolation Outcome: Ongoing Problem: Nutrition Deficit Goal: Adequate nutritional intake Description: Interventions: -Consult to auto parts handler -Intake and output measurement -Calorie count if indicated Outcome: Ongoing Goal: Body weight within specified parameters Description: Interventions: - Body weight measurement Outcome: Ongoing Problem: Pain, Acute Goal: Communication of presence of pain Description: Interventions: - Nonpharmacologic pain management - Medication administration - Education, pain scale Outcome: Ongoing Problem: Skin Integrity, Impaired, Risk for Goal: Absence of pressure injury Description: Interventions: - Skin assessment - Patient repositioning every 2 hours if decreased mobility Outcome: Ongoing Problem: Deep Venous Thrombosis, Risk of Goal: Absence of deep venous thrombosis Description: Interventions: - Deep venous thrombosis risk assessment - Ensure patient is receiving antithrombotic medication for VTE prophylaxis - Activity promotion - Graduated anti-embolic stocking management - Intermittent pneumatic compression management. Outcome: Ongoing Goal: Knowledge of deep venous thrombosis Description: Interventions: - Education, deep venous thrombosis signs and symptoms - Education, ambulation - Education, graduated anti-embolic stockings - Education, deep venous thrombosis prophalaxis Outcome: Ongoing [facility]* End of Shift Note - Rachel Ronquillo RN - 07/10/2024 5:43 AM EDT Nursing End of Shift Summary Pertinent changes to patient conditions and/or care this shift: no change. Vital Signs Weight: 76.7 kg (169 lb 1.5 oz) (07/10/24 0500) Temp: 98.6 F (37 C) Temp Source: Oral Heart Rate:79 BP: 109/62 Respirations: 18 Oxygen Saturation SpO2: 100 % O2 Delivery: Room air O2 Device: None (Room air) Incentive Spirometry Incentive Spirometry: No Diet Diet Cardiac; Intake/Output Totals Intake/Output 07/09/24 0700 - 07/10/24 0659 2921-7597 0948-8695 Total Intake P.O. 2031 480 2512 I.V. 11 -- 11 Blood 0 -- 0 Other 0 -- 0 Total Intake 2042 480 2523 Output Urine 0 -- 0 Urine 0 -- 0 Weight of Briefs in mL 0 -- 0 Urine Occurrence 2 x -- 2 x Emesis/NG output 0 -- 0 Emesis 0 -- 0 Emesis Occurrence 0 x -- 0 x Other 0 -- 0 Other 0 -- 0 Stool 0 -- 0 Stool Occurrence 1 x -- 1 x Stool 0 -- 0 Blood 0 -- 0 Blood output 0 -- 0 Total Output 0 -- 0 Activity Activity: Bedrest Level of Assistance: Independent Activity Tolerance: Other (Comment) Ambulation Attempts this Shift: Did not ambulate this shift Telemetry Cardiac Rhythm: Normal Sinus Rhythm (07/10/24 0400) Telemetry Abnormalities N/A Labs No results found for: FUNCTIONAL, PLTAGGREG Lab Results Component Value Date RBC 3.20 (L) 07/10/2024 WBC 5.2 07/10/2024 HCT 29.4 (L) 07/10/2024 HGB 10.5 (L) 07/10/2024 PLATELETCNT 63 (L) 07/10/2024 MCH 32.9 07/10/2024 MCHC 35.7 07/10/2024 MCV 92.1 07/10/2024 MPV 9.5 07/10/2024 Lab Results Component Value Date ALBUMIN 3.1 (L) 07/10/2024 SODIUM 138 07/10/2024 POTASSIUM 4.3 07/10/2024 CHLORIDE 107 07/10/2024 CO2 25 07/10/2024 ANIONGAP 6 07/10/2024 GLUCOSE 114 (H) 07/10/2024 CREATININE 0.8 07/10/2024 BUN 9 07/10/2024 CALCIUM 9.0 07/10/2024 PROTEINTOTAL 5.7 (L) 07/10/2024 TBILIRUBIN 1.6 (H) 07/10/2024 ALP 84 07/10/2024 AST 69 (H) 07/10/2024 ALTSGPT 44 07/10/2024 OSMOLALITY 275 07/10/2024 AGRATIO 1.2 07/10/2024 BC 11 07/10/2024 ESTIMATEDGFR 76 07/10/2024 Taking all meds No Any PRN meds given? Yes gabapentin,morphine,melatonin Current IV Infusions Diuretics SDOH Screen Assessed? Completed Discharge Planning [facility] Expected Discharge Date Education Provided Other (Comment) medication importance. [facility]* Handoff Documentation - Rachel Ronquillo RN - 07/09/2024 7:58 PM EDT Took over care of the patient from Drea CAO.Patient resting in bed. Fall precautions in place. No distress noted. Call light within reach. Complete environmental scan/screen at this time to ensure patient safety. Will continue to monitor. [facility]* Handoff Documentation - Nita Anne RN - 07/09/2024 7:48 PM EDT Bedside handoff care report received from NASH Cornell. All questions and concerns answered. Patient is resting in bed. Breathing even and unlabored. Alert and oriented x 3. No s/s of acute distress noted. Bed in lowest locked position, sr up x 2. Walkways free of clutter. Bedside table and call lightin reach. No reports of pain at this time. Environmental scans complete for pt safety. [facility]* End of Shift Note - Kraig Fernando LPN - 07/09/2024 6:45 PM EDT Nursing End of Shift Summary Pertinent changes to patient conditions and/or care this shift: 4400 removed from Para, Vital Signs Weight: 77.9 kg (171 lb 11.2 oz) (07/09/24 022) Temp: 97.9 F (36.6 C) Temp Source: Oral Heart Rate:70 BP: 120/70 Respirations: 20 Oxygen Saturation SpO2: 99 % O2 Delivery: Room air O2 Device: None (Room air) Incentive Spirometry Incentive Spirometry: No Diet Diet Cardiac; Intake/Output Totals Intake/Output 07/08/24 0700 - 07/09/24 0659 07/09/24 07 - 07/10/24 0659 4392-4503 8075-3040 Total 2957-8312 5189-9712 Total Intake P.O. -- 646 001 2482 -- 2031 I.V. -- 0 0 11 -- 11 Blood -- 0 0 0 -- 0 Other -- 0 0 0 -- 0 Total Intake -- 776 549 9372 -- 204 Output Urine -- 0 0 0 -- 0 Urine -- 0 0 0 -- 0 Weight of Briefs in mL -- 0 0 0 -- 0 Urine Occurrence -- 1 x 1 x 2 x -- 2 x Emesis/NG output -- 0 0 0 -- 0 Emesis -- 0 0 0 -- 0 Emesis Occurrence -- 0 x 0 x 0 x -- 0 x Other -- 0 0 0 -- 0 Other -- 0 0 0 -- 0 Stool -- 0 0 0 -- 0 Stool Occurrence -- 0 x 0 x 1 x -- 1 x Stool -- 0 0 0 -- 0 Blood -- 0 0 0 -- 0 Blood output -- 0 0 0 -- 0 Total Output -- 0 0 0 -- 0 Activity Activity: Up ad cyn Level of Assistance: Independent Activity Tolerance: Tolerated Well Ambulation Attempts this Shift: 1 Telemetry Cardiac Rhythm: Normal Sinus Rhythm (07/09/24 1600) Telemetry Abnormalities N/A Labs No results found for: FUNCTIONAL, PLTAGGREG Lab Results Component Value Date RBC 3.77 (L) 07/09/2024 WBC 7.6 07/09/2024 HCT 35.0 07/09/2024 HGB 12.3 07/09/2024 PLATELETCNT 83 (L) 07/09/2024 MCH 32.6 07/09/2024 MCHC 35.1 07/09/2024 MCV 92.8 07/09/2024 MPV 9.6 07/09/2024 Lab Results Component Value Date ALBUMIN 3.1 (L) 07/09/2024 SODIUM 136 07/09/2024 POTASSIUM 4.2 07/09/2024 CHLORIDE 109 07/09/2024 CO2 21 07/09/2024 ANIONGAP 6 07/09/2024 GLUCOSE 77 07/09/2024 CREATININE 0.9 07/09/2024 BUN 13 07/09/2024 CALCIUM 9.2 07/09/2024 PROTEINTOTAL 7.0 07/09/2024 TBILIRUBIN 1.9 (H) 07/09/2024 ALP 96 07/09/2024 AST 89 (H) 07/09/2024 ALTSGPT 54 07/09/2024 OSMOLALITY 271 07/09/2024 AGRATIO 0.8 07/09/2024 BC 14 07/09/2024 ESTIMATEDGFR 66 07/09/2024 Taking all meds Yes Any PRN meds given? Yes Morphine Current IV Infusions Diuretics SDOH Screen Assessed? Completed Discharge Planning [facility] Expected Discharge Date Education Provided Other (Comment) N/A [facility] note* Oscar Sylvester LCSW - 07/09/2024 4:25 PM EDTAssociated Order(s): IP CONSULT TO [employer] SOCIAL WORK SW attempted to speak with patient. After SW identified himself and what I was there to assess, sherefused to discuss and stated I am so tired of talking about this shit. [facility] Work Phone: [phone]) 601-815610-14-2024 Consult note* Oscar Sylvester LCSW - 07/09/2024 4:25 PM EDTAssociated Order(s): IP CONSULT TO WELLNESS [employer]OV[employer] SOCIAL WORK SW attempted to speak with patient. After SW identified himself and what I was there to assess, kalaefused to discuss and stated I am so tired of talking about this shit. * Bozena Kline - 07/09/2024 2:42 PM EDTAssociated Order(s): IP CONSULT TO SOCIAL WORK; IP CONSULT TO SOCIAL WORK SOCIAL WORK ASSESSMENT PRISON/PERSONAL CARE/ASSISTED LIVING/REHABILITATION RESIDENT DATE: 07/09/24 NAME: Carolina Hightower INTERVIEW CONDUCTED WITH/INFORMATION OBTAINED FROM: staff, pt review, center IDENTIFYING INFORMATION & PRESENTING PROBLEM: Patient presented to outside facility with abdominal distention and discomfort. She has liver cirrhosis and ascites and she gets regular tap and she was scheduled for next Tuesday by interventional radiology. But in between she got distention more worse and she rates the pain as 7/10 in severity constant and throbbing in nature. Was transferred toour facility for possible intervention. Currently patient denies chest pain/fever/nausea. Shortnessof breath mildly because of the abdominal distention. No bleeding issues. He will be admitted for further evaluation FACILITY NAME AND CONTACT INFO: [facility] [facility] [phone] ([facility]) PAYOR SOURCE/LOC/BED HOLD: [employer], [employer] [place] Medicaid * Is insurance pre-cert required before return: No * Does a new PASRR need completed prior to return: No SPECIALTY SERVICES/CARE DRAW PRESS OPERATOR : SUPPORT SYSTEM: Staff at center MEDICAL HISTORY: Past Medical History: Diagnosis Date Ascites Chronic hepatitis C virus infection (CMS/HCC) Cirrhosis (CMS/HCC) DISCUSSION & INTERVENTION: [facility] [place] Advised by [facility] to contact Brandi Barnes for transportation [phone] DISPOSITION/NEXT STEPS: SW DISCHARGE/TREATMENT PLAN: 07/09/24 Anticipate return to [facility] at discharge with facility for transportation. Report not needed. [facility] requests Brandi Barnes be contact to arrange transportation on dayof discharge @ [phone] Wellness is following SW will remain following VIV Aguirre, EXTENSION SERVICE AGENT Brokerage Purchase And Sale Clerk * Elisa Cross, REGULATORY AFFAIRS CONSULTANT - 07/09/2024 2:01 PM EDTAssociated Order(s): IP CONSULT TO WELLNESS RECOVERY REFRACTORY MIXER SUBSTANCE USE CONSULTATION DATE OF ADMISSION: 07/08/2024 DATE OF SERVICE: 07/09/2024 LOS: 0 ATTENDING PROVIDER Tod Cohn, IDENTIFYING DATA: This was a 48 y.o. female who presently resides Other [facility], [place] [address]. The patient was admitted to the 4D189/3U479R due to Transfer Report Alcoholic cirrhosis of liver with ascites (CMS/HCC) CHIEF COMPLAINT: Consultation has been requested for substance abuse assessment for polysubstance abuse. HISTORY OF PRESENT ILLNESS: This patient resting in bed with no complaints at this time. Alert and oriented x3. Wellness and recovery consulted d/t substance use. Pt presented on 07/08/2024 with Patient presented to outside facility with abdominal distention and discomfort. She has liver cirrhosis and ascites and she gets regular tap and she was scheduled for next Tuesday by interventional radiology. But in between she got distention Rapid UDS on admission + for THC, OPI. Pt very guarded and asks provider to leave room. Was able to gather some historical information.The patient admits to IV drug use. admits to .History of Hep C. HCV + on 11/19/23. Pt states he has not received treatment to date. Pt admits to use of pain pills starting around teenager years, [t states this did progress to heroin/fent use pt would not elaborate on details of use hx, pt states her last use was 2012. Pt states she has no hx of MAT, Pt states she has hx of meth use FU age 13 RENATO was 1 week ago. Pt states she smokes thc occasionally. Denies all other substances, Pt states she does smokes 1 pack of cigarettes per day, NRT refused at this time. Pt states she wishes to return to [facility] at d/c. Will check with facility on d/c requirements for readmission acceptance, wellness social service agency director to work closely with facility on needs.Pr denied alcohol use pt may be minimizing use hx. Historical Rapid Urine Toxicology Results Lab Results Component Value Date Source Ascites 07/09/2024 Source Ascites 07/09/2024 Source Ascites 07/09/2024 Source ascites 07/09/2024 PHENCYCLIDINE NEGATIVE 07/09/2024 COCAINE NEGATIVE 07/09/2024 OPIATES POSITIVE (A) 07/09/2024 METHADONE NEGATIVE 07/09/2024 OXYCODONE NEGATIVE 07/09/2024 PROPOXYPHENE NEGATIVE 07/09/2024 BUPRENORPHINE NEGATIVE 07/09/2024 CANNABINOID POSITIVE (A) 07/09/2024 FENTANYL NEGATIVE 07/09/2024 Infectious Disease Labs Lab Results Component Value Date HBSAG NEGATIVE 07/05/2024 HBSAG NEGATIVE 07/02/2024 HEPATITIS BC AB, IGM NEGATIVE 07/05/2024 HEPATITIS BC AB, IGM NEGATIVE 07/02/2024 HEPATITIS A IGM NEGATIVE 07/05/2024 HEPATITIS A IGM NEGATIVE 07/02/2024 HEPATITIS C AB REACTIVE (A) 07/05/2024 HEPATITIS C AB REACTIVE (A) 07/02/2024 Efrain - 06/29/24 gina 100mg # 60 x 30 days PAST PSYCHIATRIC HISTORY: Ms. Hightower reported no significant history of mental health issues. She denied any history of suicide attempts, self-harming behaviors, manic episodes, panic attacks, PTSD symptoms, or psychosis. Ms. Hightower reported history of inpatient or outpatient psychiatric treatment. She denied current SI, HI, or A/V/T hallucinations. PSYCHOTROPIC MEDICATION HISTORY: No: Patient is not receiving any psychotropic medications. PAST MEDICAL HISTORY: Past Medical History: Diagnosis Date Ascites Chronic hepatitis C virus infection (CMS/HCC) Cirrhosis (CMS/HCC) HOME MEDICATION: Current Facility-Administered Medications on File Prior to Encounter Medication Dose Route Frequency Provider Last Rate Last Admin [COMPLETED] lidocaine (preservative free) 20 mg/mL (2 %) injection ONE TIME Max Strickland MD 7mL at 07/02/24 1318 [COMPLETED] albumin human 25 % vial ONE TIME Max Strickland MD 37.5 g at 07/02/24 1401 Current Outpatient Medications on File Prior to Encounter Medication Sig Dispense Refill lurasidone (LATUDA) 20 mg tablet Take 20 mg by mouth Once Daily. lactulose (CHRONULAC) 10 gram/15 mL solution Take 10 g by mouth Three times a day. busPIRone (BUSPAR) 10 mg tablet Take 10 mg by mouth Three times a day. pantoprazole (PROTONIX) [address] tablet Take 40 mg by mouth Once Daily. desvenlafaxine succinate (PRISTIQ) 50 mg tablet Take 50 mg by mouth Once Daily. Take 25mg daily gabapentin (NEURONTIN) 100 mg capsule Take 100 mg by mouth Twice a day. fluticasone propionate (FLONASE) 50 mcg/Actuation nasal spray Prather 50 mcg in each nostril Once Daily. One spray both nostrils daily ferrous sulfate 325 mg (65 mg iron) DR tablet Take 325 mg by mouth Once Daily. Spironolacton-Hydrochlorothiaz 50-50 mg Tab Take 50 mg by mouth Twice a day. topiramate (TOPAMAX) 25 mg Take 25 mg by mouth Once Daily. ALLERGIES: Wellbutrin [bupropion] and Codeine Review of Systems Constitutional: Negative. Respiratory: Negative. Cardiovascular: Negative. Neurological: Negative. Psychiatric/Behavioral: Negative. Physical Exam Vitals reviewed. Cardiovascular: Rate and Rhythm: Normal rate. Pulmonary: Effort: Pulmonary effort is normal. Neurological: Mental Status: She is alert and oriented to person, place, and time. Psychiatric: Mood and Affect: Mood normal. Behavior: Behavior normal. Thought Content: Thought content normal. Judgment: Judgment normal. LAST RECORDED VITAL SIGNS: Recorded Vitals 07/09/24 0908 07/09/24 0910 07/09/24 1044 07/09/24 1349 BP: 119/69 119/69 126/66 124/72 Pulse: 63 63 56 69 Resp: 20 Temp: 97.8 F (36.6 C) TempSrc: Oral SpO2: 99% 99% 100% 100% LABS: CBC: Lab Results Component Value Date/Time WBC 7.6 07/09/2024415 RBC 3.77 07/09/2024415 HGB 12.3 07/09/2024415 HCT 35.0 07/09/2024415 MCV 92.8 07/09/2024415 MCH 32.6 07/09/2024415 MCHC 35.1 07/09/2024415 RDW 17.9 07/09/2024415 MPV 9.6 07/09/2024415 PLATELETCNT 83 07/09/2024415 CMP: Lab Results Component Value Date/Time SODIUM 136 07/09/2024415 POTASSIUM 4.2 07/09/2024415 CHLORIDE 109 07/09/2024415 CO2 21 07/09/2024415 GLUCOSE 77 07/09/2024415 BUN 13 07/09/2024415 CREATININE 0.9 07/09/2024415 CALCIUM 9.2 07/09/2024415 PROTEINTOTAL 7.0 07/09/2024415 TBILIRUBIN 1.9 07/09/2024415 ALP 96 07/09/2024415 AST 89 07/09/2024415 ALTSGPT 54 07/09/2024415 ALBUMIN 3.1 07/09/2024415 AGRATIO 0.8 07/09/2024415 Hepatic Panel: Lab Results Component Value Date/Time TBILIRUBIN 1.9 07/09/2024415 ALBUMIN 3.1 07/09/2024415 ALTSGPT 54 07/09/2024415 AST 89 07/09/2024415 ALP 96 07/09/2024415 PROTEINTOTAL 7.0 07/09/2024415 FAMILY HISTORY: Denies MH or [facility] family history at this time. See HPI. No family history on file. SOCIAL HISTORY: See SW note DIAGNOSTIC IMPRESSION: Opioid Use Disorder; Severe, In Remission Stimulant Use Disorder; Severe TREATMENT RECOMMENDATIONS: Labs Reviewed Rapid Toxicology Reviewed. OUD in remission: Encouraged cont Cessation RENATO reported 2012 STIM: Advised Cessation, advised CBT IP treatment - would like to return [facility] [place], [place]- Wellness SW assisting with D/Cplanning. Dangers of polysubstance abuse were discussed with the patient to include but not limited to the risk of overdose and . Patient verbalized adequate understanding. Narcan RX provided as well as administration education CBT/CL: Recommend Counseling/Behavioral modification program with group and IC and peer support counseling sessions CONDITIONING COACH and clinical training specialist following patient and assisting with d/c planning. as well as working with Nurse server manager for socioeconomic needs. The patient was given a substance abuse resource list which includes inpatient and outpatient rehabilitation programs in [place], [place], and [place]. Advised to establish care with PCP Thank you for consult. Please consult or contact [facility] with any questions. Signed: Elisa Cross NP 07/09/2024 2:01 PM Associated attestation - Jessie Victor MD - 07/10/2024 3:09 PM EDT Signed: Jessie Victor MD 07/10/2024 3:09 PM * Charly Vaz APSS - 07/09/2024 1:45 PM EDTAssociated Order(s): IP CONSULT TO WELLNESS RECOVERY UNDERGRADUATE ADVISOR New Peer Support Consult Presenting Problem: Patient Active Problem List Diagnosis Alcoholic cirrhosis of liver with ascites (CMS/HCC) Chronic hepatitis C with cirrhosis (CMS/HCC) Age: 48 y.o. Tox: THC Peer Support at bedside with patient on 07/09/2024. Spent 10 minutes with patient. Discussed [facility]/MH History. Patient admits to history of AUD abuse. Patient denies history of mental health treatment. Declines [facility]/MH resources. Declines referral to IP and OP treatment services. Patient stated that she just started being seen at [facility] in [facility] and will continue to follow up there. PSS encouraged patient. Provided and discussed resource options for local [facility]/MH services. Collaborated with Wellness & Recovery Team and Social Work Team. Charly Vaz * Namrata Lozano APRN - 07/09/2024 10:48 AM EDTAssociated Order(s): IP CONSULT TO INTERVENTIONAL RADIOLOGY Images from the original note were not included. Interventional Radiology Brief Consult Note Requesting Physician: River Arguelles MD Reason for Consultation: ascites and need tap. Scheduled for next Tuesday but having severe pain issues. I have reviewed the chart. Impression: s/p abdominal pain and paracentesis 07/09/[address] Milton. Please see consult note dated 07/09/2024 and procedure note for further details. Recommendation: Procedure complete, thank you for the consult. We will sign off. Please reconsult PRN. Signed: Namrata Lozano APRN 07/09/2024 10:48 AM Associated attestation - Ginger Milton MD - 07/09/2024 5:10 PM EDT Agree with REFRACTORY MIXER note * Ginger Milton MD - 07/09/2024 7:51 AM EDTAssociated Order(s): IP CONSULT TO INTERVENTIONAL RADIOLOGY Images from the original note were not included. History and Physical for Interventional Radiology Name: Carolina Hightower : 1975 07/09/2024 HPI: Liver disease and symptomatic ascites Past Medical History: Diagnosis Date Ascites Chronic hepatitis C virus infection (CMS/HCC) Cirrhosis (CMS/HCC) Current Facility-Administered Medications on File Prior to Encounter Medication Dose Route Frequency Provider Last Rate Last Admin [COMPLETED] lidocaine (preservative free) 20 mg/mL (2 %) injection ONE TIME PRN Max Rico MD 7mL at 07/02/24 1318 [COMPLETED] albumin human 25 % vial ONE TIME PRN Max Rico MD 37.5 g at 07/02/24 1401 No current outpatient medications on file prior to encounter. Patient's allergies: Allergies Allergen Reactions Wellbutrin [Bupropion] Other (See Comments) seizures Codeine Hives Physical Exam Cardiovascular: Rate and Rhythm: Normal rate. Pulmonary: Effort: Pulmonary effort is normal. Abdominal: General: There is distension. Musculoskeletal: General: Normal range of motion. Skin: General: Skin is warm. Neurological: Mental Status: She is alert. Cranial Nerves: Cranial nerve deficit present. Psychiatric: Mood and Affect: Mood normal. A/P: Ascites. Will proceed with requested paracentesis. Discussed the potential benefits, risks, and alternatives to the proposed procedure. Ms. Hightower is in agreement with the plan of care. Signed: Ginger Milton M.D. 07/09/2024 7:51 AM documented in this encounterThe [facility] Center10-14-2024 Note* Care Plan Note - Bozena Kline - 07/09/2024 2:46 PM EDT SW DISCHARGE/TREATMENT PLAN: 07/09/24 [facility]ip[facility] with facility for transportation. Report not needed. [facility] requests Barndi Barnes be contact to arrange transportation on dayof discharge @ [phone] Wellness is following SW will remain following Valentine Kline POT LINING SUPERVISOR, EXTENSION SERVICE AGENT Brokerage Purchase And Sale Clerk [facility] Consult note* Raisa Bozena - 07/09/2024 2:42 PM EDTAssociated Order(s): IP CONSULT TO SOCIAL WORK; IP CONSULT TO SOCIAL WORK SOCIAL WORK ASSESSMENT PRISON/PERSONAL CARE/ASSISTED LIVING/REHABILITATION RESIDENT DATE: 07/09/24 NAME: Carolina Hightower INTERVIEW CONDUCTED WITH/INFORMATION OBTAINED FROM: staff, pt review, center IDENTIFYING INFORMATION & PRESENTING PROBLEM: Patient presented to outside facility with abdominal distention and discomfort. She has liver cirrhosis and ascites and she gets regular tap and she was scheduled for next Tuesday by interventional radiology. But in between she got distention more worse and she rates the pain as 7/10 in severity constant and throbbing in nature. Was transferred toour facility for possible intervention. Currently patient denies chest pain/fever/nausea. Shortnessof breath mildly because of the abdominal distention. No bleeding issues. He will be admitted for further evaluation FACILITY NAME AND CONTACT INFO: [facility] [phone] ([facility]) PAYOR SOURCE/LOC/BED HOLD: [employer], [employer] [place] Medicaid * Is insurance pre-cert required before return: No * Does a new PASRR need completed prior to return: No SPECIALTY SERVICES/CARE DRAW PRESS OPERATOR : SUPPORT SYSTEM: Staff at center MEDICAL HISTORY: Past Medical History: Diagnosis Date Ascites Chronic hepatitis C virus infection (CMS/HCC) Cirrhosis (CMS/HCC) DISCUSSION & INTERVENTION: [place] plans [facility] [place] SHELL confirmed [place] able [place] return [place]. Advised by [facility] to contact Brandi Barnes for transportation [phone] DISPOSITION/NEXT STEPS: DISCHARGE/TREATMENT PLAN: 07/09/24 Anticipate return to the [facility] at discharge with facility for transportation. Report not needed. [facility] requests Brandi Barnes be contact to arrange transportation on dayof discharge @ [phone] Wellness is following SW will remain following VIV Aguirre, EXTENSION SERVICE AGENT Brokerage Purchase And Sale Clerk [facility] Consult note* Elisa CrossVERA - 07/09/2024 2:01 PM EDTAssociated Order(s): IP CONSULT TO WELLNESS RECOVERY REFRACTORY MIXER SUBSTANCE USE CONSULTATION DATE OF ADMISSION: 07/08/2024 DATE OF SERVICE: 07/09/2024 LOS: 0 ATTENDING PROVIDER Tod Cohn, IDENTIFYING DATA: This was a 48 y.o. female who presently resides Other [facility], [place] [address]. The patient was admitted to the 4D189/1Y022E due to Transfer Report Alcoholic cirrhosis of liver with ascites (CMS/HCC) CHIEF COMPLAINT: Consultation has been requested for substance abuse assessment for polysubstance abuse. HISTORY OF PRESENT ILLNESS: This patient resting in bed with no complaints at this time. Alert and oriented x3. Wellness and recovery consulted d/t substance use. Pt presented on 07/08/2024 with Patient presented to outside facility with abdominal distention and discomfort. She has liver cirrhosis and ascites and she gets regular tap and she was scheduled for next Tuesday by interventional radiology. But in between she got distention Rapid UDS on admission + for THC, OPI. Pt very guarded and asks provider to leave room. Was able to gather some historical information.The patient admits to IV drug use. admits to .History of Hep C. HCV + on 11/19/23. Pt states he has not received treatment to date. Pt admits to use of pain pills starting around teenager years, [t states this did progress to heroin/fent use pt would not elaborate on details of use hx, pt states her last use was 2012. Pt states she has no hx of MAT, Pt states she has hx of meth use FU age 13 RENATO was 1 week ago. Pt states she smokes thc occasionally. Denies all other substances, Pt states she does smokes 1 pack of cigarettes per day, NRT refused at this time. Pt states she wishes to return to [facility] at d/c. Will check with facility on d/c requirements for readmission acceptance, wellness social service agency director to work closely with facility on needs.Pr denied alcohol use pt may be minimizing use hx. Historical Rapid Urine Toxicology Results Lab Results Component Value Date Source Ascites 07/09/2024 Source Ascites 07/09/2024 Source Ascites 07/09/2024 Source ascites 07/09/2024 PHENCYCLIDINE NEGATIVE 07/09/2024 COCAINE NEGATIVE 07/09/2024 OPIATES POSITIVE (A) 07/09/2024 METHADONE NEGATIVE 07/09/2024 OXYCODONE NEGATIVE 07/09/2024 PROPOXYPHENE NEGATIVE 07/09/2024 BUPRENORPHINE NEGATIVE 07/09/2024 CANNABINOID POSITIVE (A) 07/09/2024 FENTANYL NEGATIVE 07/09/2024 Infectious Disease Labs Lab Results Component Value Date HBSAG NEGATIVE 07/05/2024 HBSAG NEGATIVE 07/02/2024 HEPATITIS BC AB, IGM NEGATIVE 07/05/2024 HEPATITIS BC AB, IGM NEGATIVE 07/02/2024 HEPATITIS A IGM NEGATIVE 07/05/2024 HEPATITIS A IGM NEGATIVE 07/02/2024 HEPATITIS C AB REACTIVE (A) 07/05/2024 HEPATITIS C AB REACTIVE (A) 07/02/2024 Efrain - 06/29/24 gina 100mg # 60 x 30 days PAST PSYCHIATRIC HISTORY: Ms. Hightower reported no significant history of mental health issues. She denied any history of suicide attempts, self-harming behaviors, manic episodes, panic attacks, PTSD symptoms, or psychosis. Ms. Hightower reported history of inpatient or outpatient psychiatric treatment. She denied current SI, HI, or A/V/T hallucinations. PSYCHOTROPIC MEDICATION HISTORY: No: Patient is not receiving any psychotropic medications. PAST MEDICAL HISTORY: Past Medical History: Diagnosis Date Ascites Chronic hepatitis C virus infection (CMS/HCC) Cirrhosis (CMS/HCC) HOME MEDICATION: Current Facility-Administered Medications on File Prior to Encounter Medication Dose Route Frequency Provider Last Rate Last Admin [COMPLETED] lidocaine (preservative free) 20 mg/mL (2 %) injection ONE TIME Max Strickland MD 7mL at 07/02/24 1318 [COMPLETED] albumin human 25 % vial ONE TIME Max Strickland MD 37.5 g at 07/02/24 1401 Current Outpatient Medications on File Prior to Encounter Medication Sig Dispense Refill lurasidone (LATUDA) 20 mg tablet Take 20 mg by mouth Once Daily. lactulose (CHRONULAC) 10 gram/15 mL solution Take 10 g by mouth Three times a day. busPIRone (BUSPAR) 10 mg tablet Take 10 mg by mouth Three times a day. pantoprazole (PROTONIX) [address] tablet Take 40 mg by mouth Once Daily. desvenlafaxine succinate (PRISTIQ) 50 mg tablet Take 50 mg by mouth Once Daily. Take 25mg daily gabapentin (NEURONTIN) 100 mg capsule Take 100 mg by mouth Twice a day. fluticasone propionate (FLONASE) 50 mcg/Actuation nasal spray Prather 50 mcg in each nostril Once Daily. One spray both nostrils daily ferrous sulfate 325 mg (65 mg iron) DR tablet Take 325 mg by mouth Once Daily. Spironolacton-Hydrochlorothiaz 50-50 mg Tab Take 50 mg by mouth Twice a day. topiramate (TOPAMAX) 25 mg Take 25 mg by mouth Once Daily. ALLERGIES: Wellbutrin [bupropion] and Codeine Review of Systems Constitutional: Negative. Respiratory: Negative. Cardiovascular: Negative. Neurological: Negative. Psychiatric/Behavioral: Negative. Physical Exam Vitals reviewed. Cardiovascular: Rate and Rhythm: Normal rate. Pulmonary: Effort: Pulmonary effort is normal. Neurological: Mental Status: She is alert and oriented to person, place, and time. Psychiatric: Mood and Affect: Mood normal. Behavior: Behavior normal. Thought Content: Thought content normal. Judgment: Judgment normal. LAST RECORDED VITAL SIGNS: Recorded Vitals 07/09/24 0908 07/09/24 0910 07/09/24 1044 07/09/24 1349 BP: 119/69 119/69 126/66 124/72 Pulse: 63 63 56 69 Resp: 20 Temp: 97.8 F (36.6 C) TempSrc: Oral SpO2: 99% 99% 100% 100% LABS: CBC: Lab Results Component Value Date/Time WBC 7.6 07/09/2024415 RBC 3.77 07/09/2024415 HGB 12.3 07/09/2024415 HCT 35.0 07/09/2024415 MCV 92.8 07/09/2024415 MCH 32.6 07/09/2024415 MCHC 35.1 07/09/20246 RDW 17.9 07/09/2024415 MPV 9.6 07/09/2024415 PLATELETCNT 83 07/09/2024415 CMP: Lab Results Component Value Date/Time SODIUM 136 07/09/20246 POTASSIUM 4.2 07/09/2024415 CHLORIDE 109 07/09/20246 CO2 21 07/09/2024415 GLUCOSE 77 07/09/20246 BUN 13 07/09/2024415 CREATININE 0.9 07/09/2024415 CALCIUM 9.2 07/09/2024415 PROTEINTOTAL 7.0 07/09/2024415 TBILIRUBIN 1.9 07/09/2024415 ALP 96 07/09/2024415 AST 89 07/09/20246 ALTSGPT 54 07/09/2024415 ALBUMIN 3.1 07/09/2024415 AGRATIO 0.8 07/09/2024415 Hepatic Panel: Lab Results Component Value Date/Time TBILIRUBIN 1.9 07/09/20246 ALBUMIN 3.1 07/09/20246 ALTSGPT 54 07/09/20246 AST 89 07/09/2024415 ALP 96 07/09/20246 PROTEINTOTAL 7.0 07/09/2024415 FAMILY HISTORY: Denies MH or [facility] family history at this time. See HPI. No family history on file. SOCIAL HISTORY: See SW note DIAGNOSTIC IMPRESSION: Opioid Use Disorder; Severe, In Remission Stimulant Use Disorder; Severe TREATMENT RECOMMENDATIONS: Labs Reviewed Rapid Toxicology Reviewed. OUD in remission: Encouraged cont Cessation RENATO reported 2012 STIM: Advised Cessation, advised CBT IP treatment - [facility] [place] [place]- Wellness SW assisting with D/Cplanning. Dangers of polysubstance abuse were discussed with the patient to include but not limited to the risk of overdose and . Patient verbalized adequate understanding. Narcan RX provided as well as administration education CBT/CL: Recommend Counseling/Behavioral modification program with group and IC and peer support counseling sessions CONDITIONING COACH and clinical training specialist following patient and assisting with d/c planning. as well as working with Nurse server manager for socioeconomic needs. The patient was given a substance abuse resource list which includes inpatient and outpatient rehabilitation programs in [place], [place], and [place]. Advised to establish care with PCP Thank you for consult. Please consult or contact [facility] with any questions. Signed: Elisa Cross NP 07/09/2024 2:01 PM Associated attestation - Jessie Victor MD - 07/10/2024 3:09 PM EDT Signed: Jessie Victor MD 07/10/2024 3:09 PM [facility] Consult note* Charly Vaz APSS - 07/09/2024 1:45 PM EDTAssociated Order(s): IP CONSULT TO WELLNESS RECOVERY UNDERGRADUATE ADVISOR New Peer Support Consult Presenting Problem: Patient Active Problem List Diagnosis Alcoholic cirrhosis of liver with ascites (CMS/HCC) Chronic hepatitis C with cirrhosis (CMS/HCC) Age: 48 y.o. Tox: THC Peer Support at bedside with patient on 07/09/2024. Spent 10 minutes with patient. Discussed [facility]/MH History. Patient admits to history of AUD abuse. Patient denies history of mental health treatment. Declines [facility]/MH resources. Declines referral to IP and OP treatment services. Patient stated that she just started being seen at [facility] in [facility] and will continue to follow up there. PSS encouraged patient. Provided and discussed resource options for local [facility]/MH services. Collaborated with Wellness & Recovery Team and Social Work Team. Charly Vaz [facility] Consult note* Namrata Lozano APRN - 07/09/2024 10:48 AM EDTAssociated Order(s): IP CONSULT TO INTERVENTIONAL RADIOLOGY Images from the original note were not included. Interventional Radiology Brief Consult Note Requesting Physician: River Arguelles MD Reason for Consultation: ascites and need tap. Scheduled for next Tuesday but having severe pain issues. I have reviewed the chart. Impression: s/p abdominal pain and paracentesis 07/09/[address] Milton. Please see consult note dated 07/09/2024 and procedure note for further details. Recommendation: Procedure complete, thank you for the consult. We will sign off. Please reconsult PRN. Signed: Namrata Lozano APRN 07/09/2024 10:48 AM Associated attestation - Ginger Milton MD - 07/09/2024 5:10 PM EDT Agree with REFRACTORY MIXER note [facility] Work Phone: 1(721) 821-606210-14-2024 Consult note* Ginger Milton MD - 07/09/2024 7:51 AM EDTAssociated Order(s): IP CONSULT TO INTERVENTIONAL RADIOLOGY Images from the original note were not included. History and Physical for Interventional Radiology Name: Carolina Hightower : 1975 07/09/2024 HPI: Liver disease and symptomatic ascites Past Medical History: Diagnosis Date Ascites Chronic hepatitis C virus infection (CMS/HCC) Cirrhosis (CMS/HCC) Current Facility-Administered Medications on File Prior to Encounter Medication Dose Route Frequency Provider Last Rate Last Admin [COMPLETED] lidocaine (preservative free) 20 mg/mL (2 %) injection ONE TIME PRMax Mcclendon MD 7mL at 07/02/24 1318 [COMPLETED] albumin human 25 % vial ONE TIME PRMax Mcclendon MD 37.5 g at 07/02/24 1401 No current outpatient medications on file prior to encounter. Patient's allergies: Allergies Allergen Reactions Wellbutrin [Bupropion] Other (See Comments) seizures Codeine Hives Physical Exam Cardiovascular: Rate and Rhythm: Normal rate. Pulmonary: Effort: Pulmonary effort is normal. Abdominal: General: There is distension. Musculoskeletal: General: Normal range of motion. Skin: General: Skin is warm. Neurological: Mental Status: She is alert. Cranial Nerves: Cranial nerve deficit present. Psychiatric: Mood and Affect: Mood normal. A/P: Ascites. Will proceed with requested paracentesis. Discussed the potential benefits, risks, and alternatives to the proposed procedure. Ms. Hightower is in agreement with the plan of care. Signed: Ginger Milton M.D. 07/09/2024 7:51 AM [facility] Work Phone: 1(512) 872-591710-14-2024 Note* Handoff Documentation - Kraig Fernando LPN - 07/09/2024 7:00 AM EDT Received report from NASH Lu. [facility]-14-[facility] Note* End of Shift Note - Yumiko Rivas RN - 07/09/2024 6:15 AM EDT Nursing End of Shift Summary Pertinent changes to patient conditions and/or care this shift: pt new admit this shift. Vital Signs Weight: 77.9 kg (171 lb 11.2 oz) (07/09/24 0229) Temp: 98 F (36.7 C) Temp Source: Oral Heart Rate:61 BP: 125/85 Respirations: 20 Oxygen Saturation SpO2: 100 % O2 Delivery: Room air O2 Device: None (Room air) Incentive Spirometry Diet Diet Cardiac; Intake/Output Totals Intake/Output 07/08/24 0700 - 07/09/24 0659 [id number] Total Intake P.O. -- 960 960 I.V. -- 0 0 Blood -- 0 0 Other -- 0 0 Total Intake -- 960 960 Output Urine -- 0 0 Urine -- 0 0 Weight of Briefs in mL -- 0 0 Urine Occurrence -- 1 x 1 x Emesis/NG output -- 0 0 Emesis -- 0 0 Emesis Occurrence -- 0 x 0 x Other -- 0 0 Other -- 0 0 Stool -- 0 0 Stool Occurrence -- 0 x 0 x Stool -- 0 0 Blood -- 0 0 Blood output -- 0 0 Total Output -- 0 0 Activity Ambulation Attempts this Shift: Did not ambulate this shift Telemetry Telemetry Abnormalities No Labs No results found for: FUNCTIONAL, PLTAGGREG Lab Results Component Value Date RBC 3.77 (L) 07/09/2024 WBC 7.6 07/09/2024 HCT 35.0 07/09/2024 HGB 12.3 07/09/2024 PLATELETCNT 83 (L) 07/09/2024 MCH 32.6 07/09/2024 MCHC 35.1 07/09/2024 MCV 92.8 07/09/2024 MPV 9.6 07/09/2024 Lab Results Component Value Date ALBUMIN 3.1 (L) 07/09/2024 SODIUM 136 07/09/2024 POTASSIUM 4.2 07/09/2024 CHLORIDE 109 07/09/2024 CO2 21 07/09/2024 ANIONGAP 6 07/09/2024 GLUCOSE 77 07/09/2024 CREATININE 0.9 07/09/2024 BUN 13 07/09/2024 CALCIUM 9.2 07/09/2024 PROTEINTOTAL 7.0 07/09/2024 TBILIRUBIN 1.9 (H) 07/09/2024 ALP 96 07/09/2024 AST 89 (H) 07/09/2024 ALTSGPT 54 07/09/2024 OSMOLALITY 271 07/09/2024 AGRATIO 0.8 07/09/2024 BC 14 07/09/2024 ESTIMATEDGFR 66 07/09/2024 Taking all meds Yes Any PRN meds given? Yes vistaril Current IV Infusions Diuretics SDOH Screen Assessed? Completed Discharge Planning [facility] Expected Discharge Date Education Provided Other (Comment) fall risks [facility] Note* Care Plan Note - Yumiko Rivas RN - 07/09/2024 6:15 AM EDT Problem: Falls, High Risk For Goal: Absence of falls Description: Interventions: - Non-skid footwear with ambulation - Assist/supervise all transfers and ambulation - Exercise program for strengthening - Address p's during each patient encounter - Remain with patient when on bsc or in bathroom - Apply bed alarm system - Chair/wheelchair locked - Siderails up x 2 - Minimize line tethering - Room near nurses' station - Walkways free of clutter - Night light on evening and night - Room door open unless contraindicated by isolation - Necessities within reach - Appropriate fall bracelet on at all times - Education, fall prevention - Reorient patient to environment as appropriate - Medication review - Remind patient to call for assistance -Bed in low position -Bed wheels locked 07/09/2024614 by Yumiko Rivas, RN Outcome: Ongoing 07/09/2024613 by Yumiko Rivas, RN Outcome: Ongoing Problem: Discharge Planning Goal: Knowledge of discharge instructions Description: Interventions: 1. Consult social work for post discharge needs 2. Education, activity restrictions 3. Education, post discharge follow up 4. Education, prescribed medication 5. Education, when to call provider 6. Education, discharge diet 07/09/2024614 by Yumiko Rivas, RN Outcome: Ongoing 07/09/2024613 by Yumiko Rivas, RN Outcome: Ongoing Problem: Activity Intolerance Goal: Improved activity tolerance Description: Interventions: 1. Education, prescribed activity level 2. Progressive ambulation program 07/09/2024614 by Yumiko Rivas, RN Outcome: Ongoing 07/09/2024613 by Yumiko Rivas, RN Outcome: Ongoing Problem: Fluid Volume, Imbalanced, Risk for Goal: Balanced intake and output Description: Interventions: 1. Body weight monitoring 2. Intake and output measurments 07/09/2024614 by Yumiko Rivas, RN Outcome: Ongoing 07/09/2024613 by Yumiko Rivas, RN Outcome: Ongoing Problem: Infection, Risk for Goal: Patient will be free from infection Description: Interventions: 1. Monitor for signs and symptoms of infection: fever, increased WBC, burning with urination or chills 2. Monitor insertion site for redness, tenderness, or drainage 3. Hand hygiene per CDC guidelines 4. Discontinuation of invasive devices when not needed 5. Place patient in appropriate isolation 07/09/2024614 by Yumiko Rivas, RN Outcome: Ongoing 07/09/2024613 by Yumiko Rivas, RN Outcome: Ongoing Problem: Nutrition Deficit Goal: Adequate nutritional intake Description: Interventions: -Consult to auto parts handler -Intake and output measurement -Calorie count if indicated 07/09/2024614 by Yumiko Rivas RN Outcome: Ongoing 07/09/2024613 by Yumiko Rivas, RN Outcome: Ongoing Goal: Body weight within specified parameters Description: Interventions: - Body weight measurement 07/09/2024614 by Yumiko Rivas, NASH Outcome: Ongoing 07/09/2024613 by Yumiko Rivas, NASH Outcome: Ongoing Problem: Pain, Acute Goal: Communication of presence of pain Description: Interventions: - Nonpharmacologic pain management - Medication administration - Education, pain scale 07/09/2024614 by Yumiko Rivas, NASH Outcome: Ongoing 07/09/2024613 by Yumiko Rivas, RN Outcome: Ongoing Problem: Skin Integrity, Impaired, Risk for Goal: Absence of pressure injury Description: Interventions: - Skin assessment - Patient repositioning every 2 hours if decreased mobility 07/09/2024614 by Yumiko Rivas, NASH Outcome: Ongoing 07/09/2024613 by Yumiko Rivas, NASH Outcome: Ongoing Problem: Deep Venous Thrombosis, Risk of Goal: Absence of deep venous thrombosis Description: Interventions: - Deep venous thrombosis risk assessment - Ensure patient is receiving antithrombotic medication for VTE prophylaxis - Activity promotion - Graduated anti-embolic stocking management - Intermittent pneumatic compression management. 07/09/2024614 by Yumiko Rivas, NASH Outcome: Ongoing 07/09/2024613 by Yumiko Rivas RN Outcome: Ongoing Goal: Knowledge of deep venous thrombosis Description: Interventions: - Education, deep venous thrombosis signs and symptoms - Education, ambulation - Education, graduated anti-embolic stockings - Education, deep venous thrombosis prophalaxis 07/09/2024614 by Yumiko Rivas, NASH Outcome: Ongoing 07/09/2024613 by Yumiko Rivas, RN Outcome: Ongoing [facility] Emergency department Note* Mohit Barnes RN - 07/09/2024 1:56 AM EDT Care handoff discussed and patient update given to Tabitha on 4D. [facility] Emergency department Note* Mohit Barnes RN - 07/09/2024 1:56 AM EDT Care handoff discussed and patient update given to Tabitha on 4D. * Soct Pillai RN - 07/08/2024 6:16 PM EDT Arrived to ED with as transfer from [facility]. Patient has complaints of abd swelling and pain. States that on Tuesday she had a paracentesis and had 3 liters taken but was transferred today when she went back in. Patient alert and oriented x 3. * Lambert Veliz DO - 07/08/2024 5:38 PM EDT aCrolina Hightower [[id number]] (F) - 48 y.o. Note Creation:07/08/2024 Encounter Date:07/08/2024 History Chief Complaint Patient presents with Transfer Report HPI Patient is a 48 y.o. female with a hx of cirrhosis and hepatitis C presents to the ED via EMS as a transfer report from [facility] for evaluation of ascites. Patient was accepted by Dr. Arguelles, Hopsitalist. Patient had a paracentesis on 07/02 and is scheduled for a paracentesis on 07/10. Patient reports associated abdominal pain. Patient denies any other pertinent symptoms or concerns. Patient denies any other aggravating or alleviating factors. Pt denies any other pertinent PMHx. Past Medical History: Diagnosis Date Ascites Chronic hepatitis C virus infection (CMS/HCC) Cirrhosis (CMS/HCC) Past Surgical History: Procedure Laterality Date HX LIVER BIOPSY HX POST STERILIZATION PARACENTESIS N/A 07/02/2024 Paracentesis performed by Max Rico MD at [facility] ULTRASOUND GUIDANCE N/A 07/02/2024 Ultrasound Guidance performed by Max Rico MD at [facility] No family history on file. Social History Tobacco Use Smoking status: Every Day Packs/day: 1 Types: Cigarettes Smokeless tobacco: Never Substance Use Topics Alcohol use: Not Currently Drug use: Not Currently Patient is a tobacco user, and I have offered a counseling referral. No LMP recorded. Patient is postmenopausal. Allergies Allergen Reactions Wellbutrin [Bupropion] Other (See Comments) seizures Codeine Hives No current outpatient medications on file prior to encounter. Review of Systems Review of Systems Constitutional: Negative for activity change, appetite change, chills, fatigue, fever and unexpected weight change. HENT: Negative for congestion, dental problem, ear discharge, ear pain, facial swelling, hearing loss, nosebleeds, postnasal drip, rhinorrhea, sinus pressure, sneezing, sore throat, tinnitus, troubleswallowing and voice change. Eyes: Negative for photophobia, pain, discharge, redness and itching. Respiratory: Negative for cough, choking, chest tightness, shortness of breath, wheezing and stridor. Cardiovascular: Negative for chest pain, palpitations and leg swelling. Gastrointestinal: Positive for abdominal pain. Negative for constipation, diarrhea, nausea, rectal pain and vomiting. Endocrine: Negative for cold intolerance, polydipsia, polyphagia and polyuria. Genitourinary: Negative for decreased urine volume, difficulty urinating, dysuria, flank pain, frequency, hematuria and urgency. Musculoskeletal: Negative for arthralgias, back pain, joint swelling and myalgias. Skin: Negative for pallor, rash and wound. Neurological: Negative for tremors, seizures, syncope, weakness, numbness and headaches. Hematological: Negative for adenopathy. Psychiatric/Behavioral: Negative for agitation, behavioral problems, confusion, hallucinations, self-injury, sleep disturbance and suicidal ideas. The patient is not nervous/anxious. Physical Exam ED Triage Vitals BP BP Manual or Automatic? Patient Position BP Location Heart Rate (Monitor) 07/08/241799 -- -- -- 07/08/241799 117/75 65 Pulse Pulse Source Respirations Temp Temp src 07/08/241799 -- 07/08/24179907/08/241799 -- 63 13 97 F (36.1 C) SpO2 SPO2 Location O2 Delivery O2 Device O2 Flow Rate (l/min) 07/08/241799 -- -- -- -- 100 % FIO2 (%) Pain Intensity 1 Exacerbated By Relieved By Quality -- 07/08/241921 -- -- -- 10 Duration -- Physical Exam Vitals and nursing note reviewed. Constitutional: General: She is not in acute distress. Appearance: She is well-developed. She is not diaphoretic. HENT: Head: Normocephalic and atraumatic. Nose: Nose normal. Mouth/Throat: Pharynx: No oropharyngeal exudate. Eyes: General: No scleral icterus. Left eye: No discharge. Conjunctiva/sclera: Conjunctivae normal. Pupils: Pupils are equal, round, and reactive to light. Neck: Vascular: No JVD. Cardiovascular: Rate and Rhythm: Normal rate and regular rhythm. Heart sounds: Normal heart sounds. No murmur heard. No friction rub. No gallop. Pulmonary: Effort: Pulmonary effort is normal. No respiratory distress. Breath sounds: Normal breath sounds. No stridor. No wheezing or rales. Chest: Chest wall: No tenderness. Abdominal: General: Bowel sounds are normal. There is distension. Palpations: Abdomen is soft. Tenderness: There is no abdominal tenderness. There is no guarding or rebound. Musculoskeletal: General: No tenderness or deformity. Normal range of motion. Cervical back: Normal range of motion and neck supple. Skin: General: Skin is warm and dry. Coloration: Skin is not pale. Findings: No erythema or rash. Neurological: Mental Status: She is alert and oriented to person, place, and time. Cranial Nerves: No cranial nerve deficit. Psychiatric: Behavior: Behavior normal. Thought Content: Thought content normal. Judgment: Judgment normal. MDM Treatment: Procedures Medications ondansetron hcl (PF) (ZOFRAN) injection 4 mg (has no administration in time range) ibuprofen (MOTRIN) tab 400 mg (has no administration in time range) gabapentin (NEURONTIN) cap 100 mg (has no administration in time range) morphine injection 3 mg (has no administration in time range) morphine injection 4 mg (4 mg Intravenous Given 07/08/241921) ondansetron hcl (PF) (ZOFRAN) injection 4 mg (4 mg Intravenous Given 07/08/241922) Results for orders placed or performed during the hospital encounter of 07/08/24 Comprehensive Metabolic Panel Result Value Ref Range SODIUM 137 135 - 145 mmol/L POTASSIUM 4.2 3.6 - 5.0 mmol/L CHLORIDE 110 101 - 111 mmol/L CO2 24 21 - 31 mmol/L ANION GAP 3 GLUCOSE 94 70 - 110 mg/dL CREATININE 0.8 0.4 - 1.0 mg/dL BUN 13 2 - 32 mg/dL CALCIUM 9.3 8.5 - 10.5 mg/dL PROTEIN TOTAL 6.4 6.1 - 7.8 g/dL Albumin 3.0 (L) 3.2 - 5.0 g/dL T BILIRUBIN 1.7 (H) 0.2 - 1.0 mg/dL ALP 108 42 - 121 [iU]/L AST 78 (H) 10 - 42 [iU]/L ALT (SGPT) 53 10 - 60 [iU]/L OSMOLALITY 274 266 - 309 A/G Ratio 0.9 B/C 16 10 - 20 ESTIMATED GFR 76 mL/min CBC w/Differential Result Value Ref Range WBC 6.9 4.5 - 11.0 10*3/uL RBC 3.63 (L) 4.00 - 5.20 10*6/uL HGB 11.9 (L) 12.0 - 16.0 g/dL HCT 33.4 33.0 - 51.0 % MCV 91.8 80.0 - 100.0 fL MCHC 35.6 32.0 - 36.0 g/dL MCH 32.7 26.0 - 34.0 pg RDW 17.8 10.7 - 18.7 % MPV 9.4 6.5 - 10.0 fL Platelet Cnt 76 (L) 150 - 450 10*3/uL Differential Type Auto Neutrophils 60.6 35.0 - 66.0 % Lymphocytes 22.9 (L) 24.0 - 44.0 % Monocytes 11.0 2.1 - 13.3 % Eosinophils 4.4 0.3 - 5.0 % Basophils 1.1 (H) 0.0 - 1.0 % Neutrophils Abs 4.2 1.5 - 8.5 10*3/uL Lymphocytes Abs 1.6 1.1 - 5.0 10*3/uL Monocytes Abs 0.8 0.0 - 1.4 10*3/uL Eosinophils Abs 0.3 0.0 - 0.5 10*3/uL Basophils Abs 0.1 0.0 - 0.1 10*3/uL MDW 18.1 0.0 - 20.0 PT/APTT/INR Result Value Ref Range PROTIME 16.4 (H) 10.1 - 13.7 s INR 1.4 (H) 0.9 - 1.1 APTT 37.3 (H) 25.5 - 35.9 s Results None Consult: I spoke with Hospitalist about the pt's history of present illness, physical examination and coursein the ED. Hospitalist accepts the patient for admission. Plan: [facility] [place] RECHECK: Admit: The pt is awake and alert at time of reevaluation. I spoke with the patientabout her ED work up and diagnosis. I informed the patient that she will be admitted for further evaluation/treatment. All questions answered. The pt is agreeable. Medical Decision Making DIFFERENTIAL DIAGNOSIS Differential Diagnosis: The following diagnoses were considered in the evaluation of this patient: ascites, cirrhosis, transfer report. Amount and/or Complexity of Data Reviewed Labs: ordered. Risk Prescription drug management. Decision regarding hospitalization. Progress Note: ED Prescriptions None Final diagnoses: Ascites ED Disposition ED Disposition Admitted Condition -- Comment Bed Type: Telemetry [5] Bed Reason: Medical Necessity [2] Scribe Attestation: Silvia Mosqueda acting as scribe for and in the presence of Lambert Veliz DO Electronically Signed By Silvia Mosqueda 07/08/2024 5:40 PM Provider Attestation: I personally performed the services described in the documentation, reviewed the documentation recorded by the scribe in my presence and it accurately and completely records my words and actions. Electronically Signed By Lambert Veliz DO 07/08/2024 11:50 PM documented in this [facility]10-13-2024 History and physical note* River Arguelles MD - 07/08/2024 7:57 PM EDT History and Physical Chief Complaint: Abdominal pain History of Present Illness: The patient is a ,48 y.o. female known to have a background history of hepatitis C, livercirrhosis with ascites, presented on 07/08/2024 with Patient presented to outside facility with abdominal distention and discomfort. She has liver cirrhosis and ascites and she gets regular tap and she was scheduled for next Tuesday by interventional radiology. But in between she got distention more worse and she rates the pain as 7/10 in severity constant and throbbing in nature. Was transferred to our facility for possible intervention. Currentlypatient denies chest pain/fever/nausea. Shortness of breath mildly because of the abdominal distention. No bleeding issues. He will be admitted for further evaluation Past Medical History: Patient has a past medical history of Ascites, Chronic hepatitis C virus infection (CMS/HCC), and Cirrhosis (CMS/HCC). Past Surgical History: Patient's has a past surgical history that includes Hx Liver Biopsy; Hx Sterilization; Paracentesis (N/A, 07/02/2024); and Ultrasound Guidance (N/A, 07/02/2024). Family History: Patient's family history is not on file. Social History: She reports that she does not currently use alcohol. She reports that she does not currently use drugs. She reports that she has been smoking cigarettes. She has been smoking an average of 1 pack per day. She has never used smokeless tobacco. 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 No rhales or rhonci.. HEART: reg. Rhythm, s1, s2 heard ABDOMEN(GI): Grossly distended, firm, fluid thrill present. Bowel sounds distant NEURO: cranial nerves intact, no sensory or motor deficit PSYCH: oriented x 3 nl. judgement & insight, memory intact, euthymic Extremities : , peripheral pulses present SKIN: warm and dry Last Recorded Vital Signs: Temp: 97 F (36.1 C) Heart Rate (Monitor): 65 Pulse: 60 BP: 135/83 Respirations: 13 SpO2: 100 % Body mass index is 31.49 kg/m . Imaging: Vascular Procedure Result Date: 07/02/2024 Procedure: Ultrasound-guided diagnostic and therapeutic paracentesis Indication: History of alcoholabuse, chronic hepatitis C infection with cirrhosis, abdominal distention and history of ascites Complication: None immediate Description of the procedure: Written informed consent was obtained. She was placed in the supine position. The abdomen was prepped and draped in the usual sterile fashion. 1% lidocaine without epinephrine was used as a local anesthetic. Sonographic imaging was performed confirming ascites. A dermatotomy was created with an 11 blade. Using sonographic guidance aseptic trocar technique a 6.5 [place] MERIT resolve drainage catheter was placed into the peritoneal cavity ofthe right lower quadrant followed by the removal 4000 mL yellow ascitic fluid. A sample was submitted for laboratory evaluation. The catheter was removed, examined and found to be intact. The dermatotomy was covered with sterile 4 x 4 and Tegaderm dressing. 37.5 g IV albumin per protocol. There were no immediate complications or patient complaints. Impression: Technically successful ultrasound-guided diagnostic and therapeutic paracentesis as above. Laboratory studies are pending. Reviewed. Pertinent Labs: CBC: Recent Labs 07/08/241822 WBC 6.9 RBC 3.63* HGB 11.9* HCT 33.4 MCV 91.8 PLATELETCNT 76* CMP: Recent Labs 07/08/241822 SODIUM 137 POTASSIUM 4.2 CHLORIDE 110 CO2 24 GLUCOSE 94 BUN 13 CREATININE 0.8 CALCIUM 9.3 TBILIRUBIN 1.7* ALP 108 AST 78* ALBUMIN 3.0* Coagulation: Recent Labs 07/08/241822 APTT 37.3* PROTIME 16.4* INR 1.4* Cardiac Enzymes: No results for input(s): CK, CKMB, TROPIHSBASE, OVVSXDH2G, UWVOPEH5P in the last 72 hours. CMP: Recent Labs 07/08/241822 SODIUM 137 POTASSIUM 4.2 CHLORIDE 110 CO2 24 GLUCOSE 94 BUN 13 CREATININE 0.8 CALCIUM 9.3 PROTEINTOTAL 6.4 TBILIRUBIN 1.7* ALP 108 AST 78* ALTSGPT 53 ALBUMIN 3.0* AGRATIO 0.9 Hepatic Panel: Recent Labs 07/08/241822 TBILIRUBIN 1.7* ALBUMIN 3.0* ALTSGPT 53 AST 78* ALP 108 PROTEINTOTAL 6.4 ASSESSMENT/PLAN: Problems and Relevant Co-morbid conditions:: Principal Problem: Alcoholic cirrhosis of liver with ascites (CMS/HCC) Active Problems: Chronic hepatitis C with cirrhosis (CMS/HCC) Alcoholic cirrhosis of the liver with gross ascites/abdominal pain-symptomatic pain management. Intra interventional radiology consult for possible paracentesis. IV pain medications for temporary relief. If necessary bowel regimen. Monitor vitals closely. Follow CMP Chronic hepatitis C with cirrhosis-follows with GI as outpatient Need to get medication list updated DVT prophylaxis : SCD Prognosis: Depends on clinical progression Patient seen and examined at : 7:30 PM Management plan and labs discussed with patient,all questions answered up to their/patient satisfaction and Patient verbalized understanding and agreed for above plan This note is dictated using computer software and inadverent error may have Occurred while dictating note. Signed: River Arguelles MD 07/08/2024 7:57 PM [facility] History and physical note* River Arguelles MD - 07/08/2024 7:57 PM EDT History and Physical Chief Complaint: Abdominal pain History of Present Illness: The patient is a ,48 y.o. female known to have a background history of hepatitis C, livercirrhosis with ascites, presented on 07/08/2024 with Patient presented to outside facility with abdominal distention and discomfort. She has liver cirrhosis and ascites and she gets regular tap and she was scheduled for next Tuesday by interventional radiology. But in between she got distention more worse and she rates the pain as 7/10 in severity constant and throbbing in nature. Was transferred to our facility for possible intervention. Currentlypatient denies chest pain/fever/nausea. Shortness of breath mildly because of the abdominal distention. No bleeding issues. He will be admitted for further evaluation Past Medical History: Patient has a past medical history of Ascites, Chronic hepatitis C virus infection (CMS/HCC), and Cirrhosis (CMS/HCC). Past Surgical History: Patient's has a past surgical history that includes Hx Liver Biopsy; Hx Sterilization; Paracentesis (N/A, 07/02/2024); and Ultrasound Guidance (N/A, 07/02/2024). Family History: Patient's family history is not on file. Social History: She reports that she does not currently use alcohol. She reports that she does not currently use drugs. She reports that she has been smoking cigarettes. She has been smoking an average of 1 pack per day. She has never used smokeless tobacco. 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 No rhales or rhonci.. HEART: reg. Rhythm, s1, s2 heard ABDOMEN(GI): Grossly distended, firm, fluid thrill present. Bowel sounds distant NEURO: cranial nerves intact, no sensory or motor deficit PSYCH: oriented x 3 nl. judgement & insight, memory intact, euthymic Extremities : , peripheral pulses present SKIN: warm and dry Last Recorded Vital Signs: Temp: 97 F (36.1 C) Heart Rate (Monitor): 65 Pulse: 60 BP: 135/83 Respirations: 13 SpO2: 100 % Body mass index is 31.49 kg/m . Imaging: Vascular Procedure Result Date: 07/02/2024 Procedure: Ultrasound-guided diagnostic and therapeutic paracentesis Indication: History of alcoholabuse, chronic hepatitis C infection with cirrhosis, abdominal distention and history of ascites Complication: None immediate Description of the procedure: Written informed consent was obtained. She was placed in the supine position. The abdomen was prepped and draped in the usual sterile fashion. 1% lidocaine without epinephrine was used as a local anesthetic. Sonographic imaging was performed confirming ascites. A dermatotomy was created with an 11 blade. Using sonographic guidance aseptic trocar technique a 6.5 Swedish MERIT resolve drainage catheter was placed into the peritoneal cavity ofthe right lower quadrant followed by the removal 4000 mL yellow ascitic fluid. A sample was submitted for laboratory evaluation. The catheter was removed, examined and found to be intact. The dermatotomy was covered with sterile 4 x 4 and Tegaderm dressing. 37.5 g IV albumin per protocol. There were no immediate complications or patient complaints. Impression: Technically successful ultrasound-guided diagnostic and therapeutic paracentesis as above. Laboratory studies are pending. Reviewed. Pertinent Labs: CBC: Recent Labs 07/08/24 1823 WBC 6.9 RBC 3.63* HGB 11.9* HCT 33.4 MCV 91.8 PLATELETCNT 76* CMP: Recent Labs 07/08/24 1823 SODIUM 137 POTASSIUM 4.2 CHLORIDE 110 CO2 24 GLUCOSE 94 BUN 13 CREATININE 0.8 CALCIUM 9.3 TBILIRUBIN 1.7* ALP 108 AST 78* ALBUMIN 3.0* Coagulation: Recent Labs 07/08/24 1823 APTT 37.3* PROTIME 16.4* INR 1.4* Cardiac Enzymes: No results for input(s): CK, CKMB, TROPIHSBASE, SXVEEZM4D, PZARZGA3F in the last 72 hours. CMP: Recent Labs 07/08/24 1823 SODIUM 137 POTASSIUM 4.2 CHLORIDE 110 CO2 24 GLUCOSE 94 BUN 13 CREATININE 0.8 CALCIUM 9.3 PROTEINTOTAL 6.4 TBILIRUBIN 1.7* ALP 108 AST 78* ALTSGPT 53 ALBUMIN 3.0* AGRATIO 0.9 Hepatic Panel: Recent Labs 07/08/24 1823 TBILIRUBIN 1.7* ALBUMIN 3.0* ALTSGPT 53 AST 78* ALP 108 PROTEINTOTAL 6.4 ASSESSMENT/PLAN: Problems and Relevant Co-morbid conditions:: Principal Problem: Alcoholic cirrhosis of liver with ascites (CMS/HCC) Active Problems: Chronic hepatitis C with cirrhosis (CMS/HCC) Alcoholic cirrhosis of the liver with gross ascites/abdominal pain-symptomatic pain management. Intra interventional radiology consult for possible paracentesis. IV pain medications for temporary relief. If necessary bowel regimen. Monitor vitals closely. Follow CMP Chronic hepatitis C with cirrhosis-follows with GI as outpatient Need to get medication list updated DVT prophylaxis : SCD Prognosis: Depends on clinical progression Patient seen and examined at : 7:30 PM Management plan and labs discussed with patient,all questions answered up to their/patient satisfaction and Patient verbalized understanding and agreed for above plan This note is dictated using computer software and inadverent error may have Occurred while dictating note. Signed: River Arguelles MD 07/08/2024 7:57 PM documented in this [facility]10-13-2024 Emergency department Note* Scot Pillai RN - 07/08/2024 6:16 PM EDT Arrived to ED with as transfer from [facility]. Patient has complaints of abd swelling and pain. States that on Tuesday she had a paracentesis and had 3 liters taken but was transferred today when she went back in. Patient alert and oriented x 3. [facility] Phys[facility] Emergency department Note* Lambert Veliz DO - 07/08/2024 5:38 PM EDT Carolina Hightower [[id number]] (F) - 48 y.o. Note Creation:07/08/2024 Encounter Date:07/08/2024 History Chief Complaint Patient presents with Transfer Report HPI Patient is a 48 y.o. female with a hx of cirrhosis and hepatitis C presents to the ED via EMS as a transfer report from [facility] for evaluation of ascites. Patient was accepted by Dr. Arguelles, Hopsitalist. Patient had a paracentesis on 07/02 and is scheduled for a paracentesis on 07/10. Patient reports associated abdominal pain. Patient denies any other pertinent symptoms or concerns. Patient denies any other aggravating or alleviating factors. Pt denies any other pertinent PMHx. Past Medical History: Diagnosis Date Ascites Chronic hepatitis C virus infection (CMS/HCC) Cirrhosis (CMS/HCC) Past Surgical History: Procedure Laterality Date HX LIVER BIOPSY HX POST STERILIZATION PARACENTESIS N/A 07/02/2024 Paracentesis performed by Max Rico MD at [facility] ULTRASOUND GUIDANCE N/A 07/02/2024 Ultrasound Guidance performed by Max Rico MD at [facility] No family history on file. Social History Tobacco Use Smoking status: Every Day Packs/day: 1 Types: Cigarettes Smokeless tobacco: Never Substance Use Topics Alcohol use: Not Currently Drug use: Not Currently Patient is a tobacco user, and I have offered a counseling referral. No LMP recorded. Patient is postmenopausal. Allergies Allergen Reactions Wellbutrin [Bupropion] Other (See Comments) seizures Codeine Hives No current outpatient medications on file prior to encounter. Review of Systems Review of Systems Constitutional: Negative for activity change, appetite change, chills, fatigue, fever and unexpected weight change. HENT: Negative for congestion, dental problem, ear discharge, ear pain, facial swelling, hearing loss, nosebleeds, postnasal drip, rhinorrhea, sinus pressure, sneezing, sore throat, tinnitus, troubleswallowing and voice change. Eyes: Negative for photophobia, pain, discharge, redness and itching. Respiratory: Negative for cough, choking, chest tightness, shortness of breath, wheezing and stridor. Cardiovascular: Negative for chest pain, palpitations and leg swelling. Gastrointestinal: Positive for abdominal pain. Negative for constipation, diarrhea, nausea, rectal pain and vomiting. Endocrine: Negative for cold intolerance, polydipsia, polyphagia and polyuria. Genitourinary: Negative for decreased urine volume, difficulty urinating, dysuria, flank pain, frequency, hematuria and urgency. Musculoskeletal: Negative for arthralgias, back pain, joint swelling and myalgias. Skin: Negative for pallor, rash and wound. Neurological: Negative for tremors, seizures, syncope, weakness, numbness and headaches. Hematological: Negative for adenopathy. Psychiatric/Behavioral: Negative for agitation, behavioral problems, confusion, hallucinations, self-injury, sleep disturbance and suicidal ideas. The patient is not nervous/anxious. Physical Exam ED Triage Vitals BP BP Manual or Automatic? Patient Position BP Location Heart Rate (Monitor) 07/08/241799 -- -- -- 07/08/241799 117/75 65 Pulse Pulse Source Respirations Temp Temp src 07/08/241799 -- 07/08/24179907/08/241799 -- 63 13 97 F (36.1 C) SpO2 SPO2 Location O2 Delivery O2 Device O2 Flow Rate (l/min) 07/08/241799 -- -- -- -- 100 % FIO2 (%) Pain Intensity 1 Exacerbated By Relieved By Quality -- 07/08/241921 -- -- -- 10 Duration -- Physical Exam Vitals and nursing note reviewed. Constitutional: General: She is not in acute distress. Appearance: She is well-developed. She is not diaphoretic. HENT: Head: Normocephalic and atraumatic. Nose: Nose normal. Mouth/Throat: Pharynx: No oropharyngeal exudate. Eyes: General: No scleral icterus. Left eye: No discharge. Conjunctiva/sclera: Conjunctivae normal. Pupils: Pupils are equal, round, and reactive to light. Neck: Vascular: No JVD. Cardiovascular: Rate and Rhythm: Normal rate and regular rhythm. Heart sounds: Normal heart sounds. No murmur heard. No friction rub. No gallop. Pulmonary: Effort: Pulmonary effort is normal. No respiratory distress. Breath sounds: Normal breath sounds. No stridor. No wheezing or rales. Chest: Chest wall: No tenderness. Abdominal: General: Bowel sounds are normal. There is distension. Palpations: Abdomen is soft. Tenderness: There is no abdominal tenderness. There is no guarding or rebound. Musculoskeletal: General: No tenderness or deformity. Normal range of motion. Cervical back: Normal range of motion and neck supple. Skin: General: Skin is warm and dry. Coloration: Skin is not pale. Findings: No erythema or rash. Neurological: Mental Status: She is alert and oriented to person, place, and time. Cranial Nerves: No cranial nerve deficit. Psychiatric: Behavior: Behavior normal. Thought Content: Thought content normal. Judgment: Judgment normal. MDM Treatment: Procedures Medications ondansetron hcl (PF) (ZOFRAN) injection 4 mg (has no administration in time range) ibuprofen (MOTRIN) tab 400 mg (has no administration in time range) gabapentin (NEURONTIN) cap 100 mg (has no administration in time range) morphine injection 3 mg (has no administration in time range) morphine injection 4 mg (4 mg Intravenous Given 07/08/241921) ondansetron hcl (PF) (ZOFRAN) injection 4 mg (4 mg Intravenous Given 07/08/241922) Results for orders placed or performed during the hospital encounter of 07/08/24 Comprehensive Metabolic Panel Result Value Ref Range SODIUM 137 135 - 145 mmol/L POTASSIUM 4.2 3.6 - 5.0 mmol/L CHLORIDE 110 101 - 111 mmol/L CO2 24 21 - 31 mmol/L ANION GAP 3 GLUCOSE 94 70 - 110 mg/dL CREATININE 0.8 0.4 - 1.0 mg/dL BUN 13 2 - 32 mg/dL CALCIUM 9.3 8.5 - 10.5 mg/dL PROTEIN TOTAL 6.4 6.1 - 7.8 g/dL Albumin 3.0 (L) 3.2 - 5.0 g/dL T BILIRUBIN 1.7 (H) 0.2 - 1.0 mg/dL ALP 108 42 - 121 [iU]/L AST 78 (H) 10 - 42 [iU]/L ALT (SGPT) 53 10 - 60 [iU]/L OSMOLALITY 274 266 - 309 A/G Ratio 0.9 B/C 16 10 - 20 ESTIMATED GFR 76 mL/min CBC w/Differential Result Value Ref Range WBC 6.9 4.5 - 11.0 10*3/uL RBC 3.63 (L) 4.00 - 5.20 10*6/uL HGB 11.9 (L) 12.0 - 16.0 g/dL HCT 33.4 33.0 - 51.0 % MCV 91.8 80.0 - 100.0 fL MCHC 35.6 32.0 - 36.0 g/dL MCH 32.7 26.0 - 34.0 pg RDW 17.8 10.7 - 18.7 % MPV 9.4 6.5 - 10.0 fL Platelet Cnt 76 (L) 150 - 450 10*3/uL Differential Type Auto Neutrophils 60.6 35.0 - 66.0 % Lymphocytes 22.9 (L) 24.0 - 44.0 % Monocytes 11.0 2.1 - 13.3 % Eosinophils 4.4 0.3 - 5.0 % Basophils 1.1 (H) 0.0 - 1.0 % Neutrophils Abs 4.2 1.5 - 8.5 10*3/uL Lymphocytes Abs 1.6 1.1 - 5.0 10*3/uL Monocytes Abs 0.8 0.0 - 1.4 10*3/uL Eosinophils Abs 0.3 0.0 - 0.5 10*3/uL Basophils Abs 0.1 0.0 - 0.1 10*3/uL MDW 18.1 0.0 - 20.0 PT/APTT/INR Result Value Ref Range PROTIME 16.4 (H) 10.1 - 13.7 s INR 1.4 (H) 0.9 - 1.1 APTT 37.3 (H) 25.5 - 35.9 s Results None Consult: I spoke with Hospitalist about the pt's history of present illness, physical examination and coursein the ED. Hospitalist accepts the patient for admission. Plan: [facility] [place] RECHECK: Admit: The pt is awake and alert at time of reevaluation. I spoke with the patientabout her ED work up and diagnosis. I informed the patient that she will be admitted for further evaluation/treatment. All questions answered. The pt is agreeable. Medical Decision Making DIFFERENTIAL DIAGNOSIS Differential Diagnosis: The following diagnoses were considered in the evaluation of this patient: ascites, cirrhosis, transfer report. Amount and/or Complexity of Data Reviewed Labs: ordered. Risk Prescription drug management. Decision regarding hospitalization. Progress Note: ED Prescriptions None Final diagnoses: Ascites ED Disposition ED Disposition Admitted Condition -- Comment Bed Type: Telemetry [5] Bed Reason: Medical Necessity [2] Scribe Attestation: Silvia Mosqueda acting as scribe for and in the presence of Lambert Veliz DO Electronically Signed By Silvia Mosqueda 07/08/2024 5:40 PM Provider Attestation: I personally performed the services described in the documentation, reviewed the documentation recorded by the scribe in my presence and it accurately and completely records my words and actions. Electronically Signed By Lambert Veliz DO 07/08/2024 11:50 PM [facility] Emergency department Note* Pete Ponce MD - 07/05/2024 12:28 PM EDT Carolina Hightower [[id number]] (F) - 48 y.o. Note Creation:07/05/2024 Encounter Date:07/05/2024 History Chief Complaint Patient presents with Swelling abdomen Carolina Hightower is a 48 y.o. female with hx of Hep C cirrhosis who presents to the ED via PV from [facility] with c/o abdominal distention that began several days ago. She also notes she has gained 7 lbs since Tuesday. Per chart review, pt was evaluated in ED on 07/02 and received paracentesis by Dr. Rico. Pt notes she was evaluated in [facility] and is not transplant candidate. She denies fever, chills, CP, SOB, n/v, or any other pertinent symptoms or concerns. She denies any otheraggravating or alleviating factors. She denies any other pertinent PMHx. Pt requests pain medication for joint aches. Pt does not have GI or PCP in [facility] and states she wants f/u appointments arrangedin [place] and does not plan on going back to [place]. The history is provided by the patient and medical records. Past Medical History: Diagnosis Date Ascites Chronic hepatitis C virus infection (CMS/HCC) Cirrhosis (CMS/HCC) Past Surgical History: Procedure Laterality Date HX LIVER BIOPSY HX POST STERILIZATION PARACENTESIS N/A 07/02/2024 Paracentesis performed by Max Rico MD at [facility] ULTRASOUND GUIDANCE N/A 07/02/2024 Ultrasound Guidance performed by Max Rico MD at [facility] No family history on file. Social History Tobacco Use Smoking status: Every Day Packs/day: 1 Types: Cigarettes Smokeless tobacco: Never Substance Use Topics Alcohol use: Not Currently Drug use: Not Currently Patient is a tobacco user, and I have offered a counseling referral. No LMP recorded. Patient is postmenopausal. Allergies Allergen Reactions Wellbutrin [Bupropion] Other (See Comments) seizures Codeine Hives No current outpatient medications on file prior to encounter. Review of Systems Review of Systems Constitutional: Positive for unexpected weight change. Negative for appetite change, chills and fever. HENT: Negative for facial swelling. Eyes: Negative for discharge. Respiratory: Negative for cough, shortness of breath and wheezing. Cardiovascular: Negative for chest pain. Gastrointestinal: Positive for abdominal distention. Negative for abdominal pain, nausea and vomiting. Endocrine: Negative for cold intolerance. Genitourinary: Negative for flank pain. Musculoskeletal: Negative for joint swelling. Skin: Negative for rash. Allergic/Immunologic: Positive for immunocompromised state. Neurological: Negative for syncope. Hematological: Negative for adenopathy. Psychiatric/Behavioral: Negative for confusion. All other systems reviewed and are negative. Physical Exam ED Triage Vitals [07/05/24 1028] BP BP Manual or Automatic? Patient Position BP Location Heart Rate (Monitor) 134/84 Automatic Sitting Right Arm -- Pulse Pulse Source Respirations Temp Temp Source 64 -- 20 98.5 F (36.9 C) Oral SpO2 SPO2 Location O2 Delivery O2 Device O2 Flow Rate (l/min) 100 % Right Arm Room air -- -- FIO2 (%) Pain Intensity 1 Exacerbated By Relieved By Quality -- 8 -- -- -- Duration -- Physical Exam Vitals and nursing note reviewed. Constitutional: General: She is not in acute distress. Appearance: She is well-developed. She is ill-appearing. She is not toxic- appearing or diaphoretic. Comments: Chronically ill appearing wf HENT: Head: Normocephalic and atraumatic. Right Ear: External ear normal. Left Ear: External ear normal. Nose: No congestion or rhinorrhea. Mouth/Throat: Pharynx: No oropharyngeal exudate. Eyes: General: No scleral icterus. Right eye: No discharge. Left eye: No discharge. Pupils: Pupils are equal, round, and reactive to light. Neck: Vascular: No JVD. Cardiovascular: Rate and Rhythm: Normal rate and regular rhythm. Heart sounds: Normal heart sounds. No murmur heard. Pulmonary: Effort: Pulmonary effort is normal. No respiratory distress. Breath sounds: Normal breath sounds. No stridor. No wheezing or rales. Abdominal: General: There is distension. Palpations: Abdomen is soft. Tenderness: There is no abdominal tenderness. There is no right CVA tenderness, left CVA tenderness, guarding or rebound. Comments: Mild ascites present Musculoskeletal: General: No swelling, tenderness, deformity or signs of injury. Normal range of motion. Cervical back: Normal range of motion and neck supple. No rigidity or tenderness. No muscular tenderness. Right lower leg: No edema. Left lower leg: No edema. Lymphadenopathy: Cervical: No cervical adenopathy. Skin: General: Skin is warm and dry. Capillary Refill: Capillary refill takes less than 2 seconds. Coloration: Skin is pale. Skin is not jaundiced. Findings: No bruising, erythema, lesion or rash. Neurological: General: No focal deficit present. Mental Status: She is alert and oriented to person, place, and time. Mental status is at baseline. Sensory: No sensory deficit. Motor: No weakness. Psychiatric: Mood and Affect: Mood normal. Behavior: Behavior normal. MDM Treatment: Procedures Medications ibuprofen (MOTRIN) tab 600 mg (600 mg Oral Refused 07/05/24 1203) Results for orders placed or performed during the hospital encounter of 07/05/24 CBC w/Differential Result Value Ref Range WBC 6.8 4.5 - 11.0 10*3/uL RBC 3.71 (L) 4.00 - 5.20 10*6/uL HGB 11.4 (L) 12.0 - 16.0 g/dL HCT 35.4 33.0 - 51.0 % MCV 95.5 80.0 - 100.0 fL MCHC 32.1 32.0 - 36.0 g/dL MCH 30.6 26.0 - 34.0 pg RDW 17.6 10.7 - 18.7 % MPV 9.4 6.5 - 10.0 fL Platelet Cnt 71 (L) 150 - 450 10*3/uL Differential Type Auto Neutrophils 64.9 35.0 - 66.0 % Lymphocytes 17.8 (L) 24.0 - 44.0 % Monocytes 10.9 2.1 - 13.3 % Eosinophils 5.9 (H) 0.3 - 5.0 % Basophils 0.5 0.0 - 1.0 % Neutrophils Abs 4.4 1.5 - 8.5 10*3/uL Lymphocytes Abs 1.2 1.1 - 5.0 10*3/uL Monocytes Abs 0.7 0.0 - 1.4 10*3/uL Eosinophils Abs 0.4 0.0 - 0.5 10*3/uL Basophils Abs 0.0 0.0 - 0.1 10*3/uL Comprehensive Metabolic Panel Result Value Ref Range SODIUM 137 135 - 145 mmol/L POTASSIUM 4.2 3.6 - 5.0 mmol/L CHLORIDE 112 (H) 101 - 111 mmol/L CO2 24 21 - 31 mmol/L ANION GAP 1 GLUCOSE 99 70 - 110 mg/dL CREATININE 0.8 0.4 - 1.0 mg/dL BUN 13 2 - 32 mg/dL CALCIUM 9.1 8.5 - 10.5 mg/dL PROTEIN TOTAL 6.6 6.1 - 7.8 g/dL Albumin 3.1 (L) 3.2 - 5.0 g/dL T BILIRUBIN 1.7 (H) 0.2 - 1.0 mg/dL ALP 112 42 - 121 [iU]/L AST 78 (H) 10 - 42 [iU]/L ALT (SGPT) 51 10 - 60 [iU]/L OSMOLALITY 274 266 - 309 A/G Ratio 0.9 B/C 16 10 - 20 ESTIMATED GFR 76 mL/min PT/APTT/INR Result Value Ref Range PROTIME 18.0 (H) 10.1 - 13.7 s INR 1.5 (H) 0.9 - 1.1 APTT 36.7 (H) 25.5 - 35.9 s Hepatitis Panel Result Value Ref Range HBSAG NEGATIVE Negative HEPATITIS BC AB, IGM NEGATIVE Negative HEPATITIS C AB REACTIVE (A) Negative HEPATITIS A IGM NEGATIVE Negative Results None Plan: [facility] [place] RECHECK: Discharge: The pt is awake, alert and stable appearing at time of reevaluation. I spoke with the patient about her ED work up, diagnosis and any further treatment. I discussed the importance of following up with the GI doctor for further evaluation as scheduled. Also, follow up at the [facility] as scheduled to establish a primary care provider. I instructed her to return to theEmergency Room for new or worsening symptoms. All of the pt's questions were answered. The patient verbalized understanding. The patient is stable at time of discharge. 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 Problems Addressed: Cirrhosis of liver (CMS/HCC): chronic illness or injury Amount and/or Complexity of Data Reviewed External Data Reviewed: labs and notes. Labs: ordered. Risk Prescription drug management. Progress Note: ED Prescriptions None Final diagnoses: Cirrhosis of liver (CMS/HCC) ED Disposition ED Disposition Discharged Condition Stable Comment -- Follow-up Information [facility] Interventional Radiology . Specialty: Interventional Radiology Contact information: [address] [place] [id number] Discharge Instructions Follow with the GI doctor for further evaluation as scheduled on 07/18 at [address] Welsh. Also, follow up at the [facility] as scheduled on 07/27 at 1030 am with Jhonatan Banda NP to establish a primary care provider. Discharge References/Attachments Cirrhosis of the Liver ([facility](R) Instructions(ER/ED)) (Ghanaian) Scribe Attestation: I, Gigi Isaacs, am acting as scribe for and in the presence of Pete Ponce MD. Electronically Signed By Gigi Isaacs 07/05/24 1:02 PM Provider Attestation: I personally performed the services described in the documentation, reviewed the documentation recorded by the scribe in my presence and it accurately and completely records my words and actions. [facility] Phys[facility] Emergency department Note* Pete Ponce MD - 07/05/2024 12:28 PM EDT Carolina Hightower [[id number]] (F) - 48 y.o. Note Creation:07/05/2024 Encounter Date:07/05/2024 History Chief Complaint Patient presents with Swelling abdomen Carolina Hightower is a 48 y.o. female with hx of Hep C cirrhosis who presents to the ED via PV from [facility] with c/o abdominal distention that began several days ago. She also notes she has gained 7 lbs since Tuesday. Per chart review, pt was evaluated in ED on 07/02 and received paracentesis by Dr. Rico. Pt notes she was evaluated in [facility] and is not transplant candidate. She denies fever, chills, CP, SOB, n/v, or any other pertinent symptoms or concerns. She denies any otheraggravating or alleviating factors. She denies any other pertinent PMHx. Pt requests pain medication for joint aches. Pt does not have GI or PCP in [facility] and states she wants f/u appointments arrangedin [place] and does not plan on going back to [place]. The history is provided by the patient and medical records. Past Medical History: Diagnosis Date Ascites Chronic hepatitis C virus infection (CMS/HCC) Cirrhosis (CMS/HCC) Past Surgical History: Procedure Laterality Date HX LIVER BIOPSY HX POST STERILIZATION PARACENTESIS N/A 07/02/2024 Paracentesis performed by Max Rico MD at [facility] ULTRASOUND GUIDANCE N/A 07/02/2024 Ultrasound Guidance performed by Max Rico MD at [facility] No family history on file. Social History Tobacco Use Smoking status: Every Day Packs/day: 1 Types: Cigarettes Smokeless tobacco: Never Substance Use Topics Alcohol use: Not Currently Drug use: Not Currently Patient is a tobacco user, and I have offered a counseling referral. No LMP recorded. Patient is postmenopausal. Allergies Allergen Reactions Wellbutrin [Bupropion] Other (See Comments) seizures Codeine Hives No current outpatient medications on file prior to encounter. Review of Systems Review of Systems Constitutional: Positive for unexpected weight change. Negative for appetite change, chills and fever. HENT: Negative for facial swelling. Eyes: Negative for discharge. Respiratory: Negative for cough, shortness of breath and wheezing. Cardiovascular: Negative for chest pain. Gastrointestinal: Positive for abdominal distention. Negative for abdominal pain, nausea and vomiting. Endocrine: Negative for cold intolerance. Genitourinary: Negative for flank pain. Musculoskeletal: Negative for joint swelling. Skin: Negative for rash. Allergic/Immunologic: Positive for immunocompromised state. Neurological: Negative for syncope. Hematological: Negative for adenopathy. Psychiatric/Behavioral: Negative for confusion. All other systems reviewed and are negative. Physical Exam ED Triage Vitals [07/05/24 1028] BP BP Manual or Automatic? Patient Position BP Location Heart Rate (Monitor) 134/84 Automatic Sitting Right Arm -- Pulse Pulse Source Respirations Temp Temp Source 64 -- 20 98.5 F (36.9 C) Oral SpO2 SPO2 Location O2 Delivery O2 Device O2 Flow Rate (l/min) 100 % Right Arm Room air -- -- FIO2 (%) Pain Intensity 1 Exacerbated By Relieved By Quality -- 8 -- -- -- Duration -- Physical Exam Vitals and nursing note reviewed. Constitutional: General: She is not in acute distress. Appearance: She is well-developed. She is ill-appearing. She is not toxic- appearing or diaphoretic. Comments: Chronically ill appearing wf HENT: Head: Normocephalic and atraumatic. Right Ear: External ear normal. Left Ear: External ear normal. Nose: No congestion or rhinorrhea. Mouth/Throat: Pharynx: No oropharyngeal exudate. Eyes: General: No scleral icterus. Right eye: No discharge. Left eye: No discharge. Pupils: Pupils are equal, round, and reactive to light. Neck: Vascular: No JVD. Cardiovascular: Rate and Rhythm: Normal rate and regular rhythm. Heart sounds: Normal heart sounds. No murmur heard. Pulmonary: Effort: Pulmonary effort is normal. No respiratory distress. Breath sounds: Normal breath sounds. No stridor. No wheezing or rales. Abdominal: General: There is distension. Palpations: Abdomen is soft. Tenderness: There is no abdominal tenderness. There is no right CVA tenderness, left CVA tenderness, guarding or rebound. Comments: Mild ascites present Musculoskeletal: General: No swelling, tenderness, deformity or signs of injury. Normal range of motion. Cervical back: Normal range of motion and neck supple. No rigidity or tenderness. No muscular tenderness. Right lower leg: No edema. Left lower leg: No edema. Lymphadenopathy: Cervical: No cervical adenopathy. Skin: General: Skin is warm and dry. Capillary Refill: Capillary refill takes less than 2 seconds. Coloration: Skin is pale. Skin is not jaundiced. Findings: No bruising, erythema, lesion or rash. Neurological: General: No focal deficit present. Mental Status: She is alert and oriented to person, place, and time. Mental status is at baseline. Sensory: No sensory deficit. Motor: No weakness. Psychiatric: Mood and Affect: Mood normal. Behavior: Behavior normal. MDM Treatment: Procedures Medications ibuprofen (MOTRIN) tab 600 mg (600 mg Oral Refused 07/05/24 1203) Results for orders placed or performed during the hospital encounter of 07/05/24 CBC w/Differential Result Value Ref Range WBC 6.8 4.5 - 11.0 10*3/uL RBC 3.71 (L) 4.00 - 5.20 10*6/uL HGB 11.4 (L) 12.0 - 16.0 g/dL HCT 35.4 33.0 - 51.0 % MCV 95.5 80.0 - 100.0 fL MCHC 32.1 32.0 - 36.0 g/dL MCH 30.6 26.0 - 34.0 pg RDW 17.6 10.7 - 18.7 % MPV 9.4 6.5 - 10.0 fL Platelet Cnt 71 (L) 150 - 450 10*3/uL Differential Type Auto Neutrophils 64.9 35.0 - 66.0 % Lymphocytes 17.8 (L) 24.0 - 44.0 % Monocytes 10.9 2.1 - 13.3 % Eosinophils 5.9 (H) 0.3 - 5.0 % Basophils 0.5 0.0 - 1.0 % Neutrophils Abs 4.4 1.5 - 8.5 10*3/uL Lymphocytes Abs 1.2 1.1 - 5.0 10*3/uL Monocytes Abs 0.7 0.0 - 1.4 10*3/uL Eosinophils Abs 0.4 0.0 - 0.5 10*3/uL Basophils Abs 0.0 0.0 - 0.1 10*3/uL Comprehensive Metabolic Panel Result Value Ref Range SODIUM 137 135 - 145 mmol/L POTASSIUM 4.2 3.6 - 5.0 mmol/L CHLORIDE 112 (H) 101 - 111 mmol/L CO2 24 21 - 31 mmol/L ANION GAP 1 GLUCOSE 99 70 - 110 mg/dL CREATININE 0.8 0.4 - 1.0 mg/dL BUN 13 2 - 32 mg/dL CALCIUM 9.1 8.5 - 10.5 mg/dL PROTEIN TOTAL 6.6 6.1 - 7.8 g/dL Albumin 3.1 (L) 3.2 - 5.0 g/dL T BILIRUBIN 1.7 (H) 0.2 - 1.0 mg/dL ALP 112 42 - 121 [iU]/L AST 78 (H) 10 - 42 [iU]/L ALT (SGPT) 51 10 - 60 [iU]/L OSMOLALITY 274 266 - 309 A/G Ratio 0.9 B/C 16 10 - 20 ESTIMATED GFR 76 mL/min PT/APTT/INR Result Value Ref Range PROTIME 18.0 (H) 10.1 - 13.7 s INR 1.5 (H) 0.9 - 1.1 APTT 36.7 (H) 25.5 - 35.9 s Hepatitis Panel Result Value Ref Range HBSAG NEGATIVE Negative HEPATITIS BC AB, IGM NEGATIVE Negative HEPATITIS C AB REACTIVE (A) Negative HEPATITIS A IGM NEGATIVE Negative Results None Plan: [facility] [place] RECHECK: Discharge: The pt is awake, alert and stable appearing at time of reevaluation. I spoke with the patient about her ED work up, diagnosis and any further treatment. I discussed the importance of following up with the GI doctor for further evaluation as scheduled. Also, follow up at the [facility] as scheduled to establish a primary care provider. I instructed her to return to theEmergency Room for new or worsening symptoms. All of the pt's questions were answered. The patient verbalized understanding. The patient is stable at time of discharge. 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 Problems Addressed: Cirrhosis of liver (CMS/HCC): chronic illness or injury Amount and/or Complexity of Data Reviewed External Data Reviewed: labs and notes. Labs: ordered. Risk Prescription drug management. Progress Note: ED Prescriptions None Final diagnoses: Cirrhosis of liver (CMS/HCC) ED Disposition ED Disposition Discharged Condition Stable Comment -- Follow-up Information [facility] Interventional Radiology . Specialty: Interventional Radiology Contact information: [address] [place] [phone] Discharge Instructions Follow with the GI doctor for further evaluation as scheduled on 07/18 at [address] Welsh. Also, follow up at the [facility] as scheduled on 07/27 at 1030 am with Jhonatan Banda NP to establish a primary care provider. Discharge References/Attachments Cirrhosis of the Liver (AfterCare(R) Instructions(ER/ED)) (Ghanaian) Scribe Attestation: I, Gigi Isaacs, am acting as scribe for and in the presence of Pete Ponce MD. Electronically Signed By Gigi Isaacs 07/05/24 1:02 PM Provider Attestation: I personally performed the services described in the documentation, reviewed the documentation recorded by the scribe in my presence and it accurately and completely records my words and actions. [facility] History of Present illness Narrative* Perla Cox RN - 07/05/2024 12:19 PM EDT Follow-up appt w/ Dr. Welsh on July 18 at 11:00am. Info given to nurseJamia, to give to Pt. Dr. Ponce aware. documented in this encounterThe Medical Center10-10-2024 Hospital Discharge instructions* Discharge Instructions* Pete Ponce MD - 07/05/2024 12:03 PM EDT Follow with the GI doctor for further evaluation as scheduled on 07/18 at [address] Welsh. Also, follow up at the [facility] as scheduled on 07/27 at 1030 am with Jhonatan Banda NP to establish a primary care provider. * Attachments The following attachments cannot be sent through Care Everywhere. * Cirrhosis of the Liver (AfterCare(R) Instructions(ER/ED)) (Ghanaian) documented in this encounterThe Medical Center10-07-2024 Emergency department Note* Hi Lara RN - 07/02/2024 4:04 PM EDT Patient states she is not waiting on d/c paperwork and left facility. [facility] Emergency department Note* Hi Lara RN - 07/02/2024 4:04 PM EDT Patient states she is not waiting on d/c paperwork and left facility. * Hi Lara RN - 07/02/2024 3:06 PM EDT Pt arrived back from paracentesis. * Pete Ponce MD - 07/02/2024 11:47 AM EDT Carolina Hightower [[id number]] (F) - 48 y.o. Note Creation:07/02/2024 Encounter Date:07/02/2024 History Chief Complaint Patient presents with Swelling Carolina Hightower is a 48 y.o. female with hx of ascites, Hep C, liver cirrhosis who presents to the ED via PV from [facility] with c/o abdominal swelling that began within the last few days. She notesshe has alcoholic and Hep C cirrhosis of the liver and had paracentesis in [place], [place] two weeks ago where she had 8L drained. She denies any pain complaints. Pt notes she has been at the [facility] for a week recovering from meth. She denies fever, CP, SOB, n/v, abdominal pain, chills, or any other pertinent symptoms or concerns. She denies any other aggravating or alleviating factors. She denies any other pertinent PMHx. The history is provided by the patient and medical records. Past Medical History: Diagnosis Date Ascites Chronic hepatitis C virus infection (CMS/HCC) Cirrhosis (CMS/HCC) Past Surgical History: Procedure Laterality Date HX LIVER BIOPSY HX POST STERILIZATION No family history on file. Social History Tobacco Use Smoking status: Every Day Packs/day: 1 Types: Cigarettes Smokeless tobacco: Never Substance Use Topics Alcohol use: Not Currently Drug use: Not Currently Patient is a tobacco user, and I have offered a counseling referral. No LMP recorded (approximate). Patient is postmenopausal. Allergies Allergen Reactions Wellbutrin [Bupropion] Other (See Comments) seizures Codeine Hives No current outpatient medications on file prior to encounter. Review of Systems Review of Systems Constitutional: Negative for appetite change, chills and fever. HENT: Negative for facial swelling. Eyes: Negative for discharge. Respiratory: Negative for cough, shortness of breath and wheezing. Cardiovascular: Negative for chest pain. Gastrointestinal: Positive for abdominal distention. Negative for abdominal pain, nausea and vomiting. Endocrine: Negative for cold intolerance. Genitourinary: Negative for flank pain. Musculoskeletal: Negative for joint swelling. Skin: Negative for rash. Allergic/Immunologic: Positive for immunocompromised state. Neurological: Negative for syncope. Hematological: Negative for adenopathy. Psychiatric/Behavioral: Negative for confusion. All other systems reviewed and are negative. Physical Exam ED Triage Vitals BP BP Manual or Automatic? Patient Position BP Location Heart Rate (Monitor) 07/02/2454 07/02/2454 07/02/2454 -- -- 129/65 Automatic Sitting Pulse Pulse Source Respirations Temp Temp Source 07/02/2454 07/02/24 0954 07/02/24 0954 07/02/24 0954 07/02/24 0954 64 Brachial 19 98.7 F (37.1 C) Oral SpO2 SPO2 Location O2 Delivery O2 Device O2 Flow Rate (l/min) 07/02/2454 07/02/2454 07/02/2454 07/02/24 1242 -- 100 % Right Arm Room air None (Room air) FIO2 (%) Pain Intensity 1 Exacerbated By Relieved By Quality -- 07/02/2451 -- -- -- 8 Duration -- Physical Exam Vitals and nursing note reviewed. Constitutional: General: She is not in acute distress. Appearance: She is well-developed. She is ill-appearing. She is not toxic- appearing or diaphoretic. Comments: Chronically ill appearing wf HENT: Head: Normocephalic and atraumatic. Right Ear: External ear normal. Left Ear: External ear normal. Nose: No congestion or rhinorrhea. Mouth/Throat: Pharynx: No oropharyngeal exudate. Eyes: General: No scleral icterus. Right eye: No discharge. Left eye: No discharge. Pupils: Pupils are equal, round, and reactive to light. Neck: Vascular: No JVD. Cardiovascular: Rate and Rhythm: Normal rate and regular rhythm. Heart sounds: Normal heart sounds. No murmur heard. Pulmonary: Effort: Pulmonary effort is normal. No respiratory distress. Breath sounds: Normal breath sounds. No stridor. No wheezing or rales. Abdominal: General: There is distension. Palpations: Abdomen is soft. Tenderness: There is no abdominal tenderness. There is no right CVA tenderness or left CVA tenderness. Musculoskeletal: General: No swelling, tenderness, deformity or signs of injury. Normal range of motion. Cervical back: Normal range of motion and neck supple. No rigidity or tenderness. No muscular tenderness. Right lower leg: No edema. Left lower leg: No edema. Lymphadenopathy: Cervical: No cervical adenopathy. Skin: General: Skin is warm and dry. Capillary Refill: Capillary refill takes less than 2 seconds. Coloration: Skin is pale. Skin is not jaundiced. Findings: No bruising, erythema, lesion or rash. Neurological: General: No focal deficit present. Mental Status: She is alert and oriented to person, place, and time. Mental status is at baseline. Sensory: No sensory deficit. Motor: No weakness. Psychiatric: Mood and Affect: Mood normal. Behavior: Behavior normal. MDM Treatment: Procedures Medications ALBUMIN, HUMAN 25 % INTRAVENOUS SOLUTION (Pyxis override) (has no administration in time range) LIDOCAINE (PF) 20 MG/ML (2 %) INJECTION SOLUTION (Pyxis override) (has no administration in time range) lidocaine (preservative free) 20 mg/mL (2 %) injection (7 mL Intradermal Given 07/02/24 1318) albumin human 25 % vial (37.5 g Intravenous Given 07/02/24 1401) Results for orders placed or performed during the hospital encounter of 07/02/24 Body Fluid Culture Specimen: Ascities; Body Fluid Result Value Ref Range GRAM STAIN SMEAR Few WBC'S. No organisms seen. CBC w/Differential Result Value Ref Range WBC 5.9 4.5 - 11.0 10*3/uL RBC 3.58 (L) 4.00 - 5.20 10*6/uL HGB 11.1 (L) 12.0 - 16.0 g/dL HCT 34.1 33.0 - 51.0 % MCV 95.2 80.0 - 100.0 fL MCHC 32.5 32.0 - 36.0 g/dL MCH 31.0 26.0 - 34.0 pg RDW 16.6 10.7 - 18.7 % MPV 9.2 6.5 - 10.0 fL Platelet Cnt 64 (L) 150 - 450 10*3/uL Differential Type Auto Neutrophils 72.4 (H) 35.0 - 66.0 % Lymphocytes 14.0 (L) 24.0 - 44.0 % Monocytes 8.0 2.1 - 13.3 % Eosinophils 5.2 (H) 0.3 - 5.0 % Basophils 0.4 0.0 - 1.0 % Neutrophils Abs 4.2 1.5 - 8.5 10*3/uL Lymphocytes Abs 0.8 (L) 1.1 - 5.0 10*3/uL Monocytes Abs 0.5 0.0 - 1.4 10*3/uL Eosinophils Abs 0.3 0.0 - 0.5 10*3/uL Basophils Abs 0.0 0.0 - 0.1 10*3/uL Comprehensive Metabolic Panel Result Value Ref Range SODIUM 139 135 - 145 mmol/L POTASSIUM 3.9 3.6 - 5.0 mmol/L CHLORIDE 112 (H) 101 - 111 mmol/L CO2 25 21 - 31 mmol/L ANION GAP 2 GLUCOSE 121 (H) 70 - 110 mg/dL CREATININE 0.8 0.4 - 1.0 mg/dL BUN 11 2 - 32 mg/dL CALCIUM 8.6 8.5 - 10.5 mg/dL PROTEIN TOTAL 6.7 6.1 - 7.8 g/dL Albumin 3.0 (L) 3.2 - 5.0 g/dL T BILIRUBIN 1.7 (H) 0.2 - 1.0 mg/dL ALP 107 42 - 121 [iU]/L AST 96 (H) 10 - 42 [iU]/L ALT (SGPT) 54 10 - 60 [iU]/L OSMOLALITY 278 266 - 309 A/G Ratio 0.8 B/C 14 10 - 20 ESTIMATED GFR 76 mL/min PT/APTT/INR Result Value Ref Range PROTIME 17.3 (H) 10.1 - 13.7 s INR 1.4 (H) 0.9 - 1.1 APTT 37.1 (H) 25.5 - 35.9 s Lipase Result Value Ref Range LIPASE 41 11 - 82 U/L Hepatitis Panel Result Value Ref Range HBSAG NEGATIVE Negative HEPATITIS BC AB, IGM NEGATIVE Negative HEPATITIS C AB REACTIVE (A) Negative HEPATITIS A IGM NEGATIVE Negative Protein Body Fluid Result Value Ref Range PROTEIN FLUID 3.0 g/dL Glucose Body Fluid Result Value Ref Range GLUCOSE FLUID 138 mg/dL Body Fluid Cell Count Result Value Ref Range Source Ascites TUBE NUMBER Syringe VOLUME 60.0 COLOR,FLUID Yellow CHARACTER Clear RBC FLUID 587 uL TOTAL NUC CELL 97 uL Fluid Comment see below LDH, Fluid Result Value Ref Range LDH FLUID 46 (L) 60 - 160 [iU]/L Albumin, Body Fluid Result Value Ref Range Source Ascities Results Vascular Procedure (Final result) Result time 07/02/24 14:24:07 Final result Narrative: Procedure: Ultrasound-guided diagnostic and therapeutic paracentesis Indication: History of alcohol abuse, chronic hepatitis C infection with cirrhosis, abdominal distention and history of ascites Complication: None immediate Description of the procedure: Written informed consent was obtained. She was placed in the supine position. The abdomen was prepped and draped in the usual sterile fashion. 1% lidocaine without epinephrine was used as a local anesthetic. Sonographic imaging was performed confirming ascites. A dermatotomy was created with an 11 blade. Using sonographic guidance aseptic trocar technique a 6.5 [place] MERIT resolve drainage catheter was placed into the peritoneal cavity of the right lower quadrant followed by the removal 4000 mL yellow ascitic fluid. A sample was submitted for laboratory evaluation. The catheter was removed, examined and found to be intact. The dermatotomy was covered with sterile 4 x 4 and Tegaderm dressing. 37.5 g IV albumin per protocol. There were no immediate complications or patient complaints. Impression: Technically successful ultrasound-guided diagnostic and therapeutic paracentesis as above. Laboratory studies are pending. Consult: I spoke with Dr. Milton, IR, about the pt's history of present illness, physical examination and course in the ED. WILL TAKE TO IR LAB FOR PARACENTESIS. Plan: [facility] [place] RECHECK: Discharge: The pt is awake, alert and stable appearing at time of reevaluation; 4lyellow ascitic fluid removed. Pt is stable for discharge after paracentesis. I spoke with the patient about her ED work up, diagnosis and any further treatment. I discussed the importance of following up with Dr. Coughlin for further GI work up and IR for future paracentesis. I instructed her to return to the Emergency Room for new or worsening symptoms. All of the pt's questions were answered. The patient verbalized understanding. The patient is stable at time of discharge back to [facility]. 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 Problems Addressed: Alcoholic cirrhosis of liver with ascites (CMS/HCC): acute illness or injury Chronic hepatitis C with cirrhosis (CMS/HCC): chronic illness or injury Amount and/or Complexity of Data Reviewed External Data Reviewed: labs, radiology and notes. Labs: ordered. Progress Note: ED Prescriptions None Final diagnoses: Alcoholic cirrhosis of liver with ascites (CMS/HCC) Chronic hepatitis C with cirrhosis (CMS/HCC) ED Disposition ED Disposition Discharge After Treatment Condition Stable Comment -- Follow-up Information [facility] Interventional Radiology In 1 week. Specialty: Interventional Radiology Contact information: [address] [place] [phone] Kusum Coughlin MD. Specialties: Gastroenterology, [place] Provider Contact information: [address] [place] [address] [address] [id number] Discharge Instructions FOLLOW UP WITH THE GI DOCTOR TO ESTABLISH CARE OR AT THE [facility]. RETURN TO ED IF ANY NEW OR WORSENING SYMPTOMS. Scribe Attestation: I, Gigi Isaacs, am acting as scribe for and in the presence of Pete Ponce MD. Electronically Signed By Gigi Isaacs 07/02/24 11:50 AM Provider Attestation: I personally performed the services described in the documentation, reviewed the documentation recorded by the scribe in my presence and it accurately and completely records my words and actions. documented in this encounterThe Medical Center10-07-[facility] Emergency department Note* Hi Lara RN - 07/02/2024 3:06 PM EDT Pt arrived back from paracentesis. [facility] NoteProcedure: Ultrasound-guided diagnostic and therapeutic paracentesis Indication: History of alcohol abuse, chronic hepatitis C infection with cirrhosis, abdominal distention and history of ascites Complication: None immediate Description of the procedure: Written informed consent was obtained. She was placed in the supine position. The abdomen was prepped and draped in the usual sterile fashion. 1% lidocaine without epinephrine was used as a local anesthetic. Sonographic imaging was performed confirming ascites. A dermatotomy was created with an 11 blade. Using sonographic guidance aseptic trocar technique a 6.5 [place] MERIT resolve drainage catheter was placed into the peritoneal cavity of the right lower quadrant followed by the removal 4000 mL yellow ascitic fluid. A sample was submitted for laboratory evaluation. The catheter was removed, examined and found to be intact. The dermatotomy was covered with sterile 4 x 4 and Tegaderm dressing. 37.5 g IV albumin per protocol. There were no immediate complications or patient complaints. Impression: Technically successful ultrasound-guided diagnostic and therapeutic paracentesis as above. Laboratory studies are pending. [facility] Hospital Discharge instructions* Discharge Instructions* Pete Ponce MD - 07/02/2024 2:19 PM EDT FOLLOW UP WITH THE GI DOCTOR TO ESTABLISH CARE OR AT THE [facility]. RETURN TO ED IF ANY NEW OR WORSENING SYMPTOMS. documented in this encounterThe Medical Center10-07-2024 Physician Emergency department Note* Pete Ponce MD - 07/02/2024 11:47 AM EDT Carolina Hightower [[id number]] (F) - 48 y.o. Note Creation:07/02/2024 Encounter Date:07/02/2024 History Chief Complaint Patient presents with Swelling Carolina Hightower is a 48 y.o. female with hx of ascites, Hep C, liver cirrhosis who presents to the ED via PV from [facility] with c/o abdominal swelling that began within the last few days. She notesshe has alcoholic and Hep C cirrhosis of the liver and had paracentesis in [place], [place] two weeks ago where she had 8L drained. She denies any pain complaints. Pt notes she has been at the [facility] for a week recovering from meth. She denies fever, CP, SOB, n/v, abdominal pain, chills, or any other pertinent symptoms or concerns. She denies any other aggravating or alleviating factors. She denies any other pertinent PMHx. The history is provided by the patient and medical records. Past Medical History: Diagnosis Date Ascites Chronic hepatitis C virus infection (CMS/HCC) Cirrhosis (CMS/HCC) Past Surgical History: Procedure Laterality Date HX LIVER BIOPSY HX POST STERILIZATION No family history on file. Social History Tobacco Use Smoking status: Every Day Packs/day: 1 Types: Cigarettes Smokeless tobacco: Never Substance Use Topics Alcohol use: Not Currently Drug use: Not Currently Patient is a tobacco user, and I have offered a counseling referral. No LMP recorded (approximate). Patient is postmenopausal. Allergies Allergen Reactions Wellbutrin [Bupropion] Other (See Comments) seizures Codeine Hives No current outpatient medications on file prior to encounter. Review of Systems Review of Systems Constitutional: Negative for appetite change, chills and fever. HENT: Negative for facial swelling. Eyes: Negative for discharge. Respiratory: Negative for cough, shortness of breath and wheezing. Cardiovascular: Negative for chest pain. Gastrointestinal: Positive for abdominal distention. Negative for abdominal pain, nausea and vomiting. Endocrine: Negative for cold intolerance. Genitourinary: Negative for flank pain. Musculoskeletal: Negative for joint swelling. Skin: Negative for rash. Allergic/Immunologic: Positive for immunocompromised state. Neurological: Negative for syncope. Hematological: Negative for adenopathy. Psychiatric/Behavioral: Negative for confusion. All other systems reviewed and are negative. Physical Exam ED Triage Vitals BP BP Manual or Automatic? Patient Position BP Location Heart Rate (Monitor) 07/02/24 0954 07/02/24 0954 07/02/2454 -- -- 129/65 Automatic Sitting Pulse Pulse Source Respirations Temp Temp Source 07/02/24 0954 07/02/24 0954 07/02/24 0954 07/02/24 0954 07/02/24 0954 64 Brachial 19 98.7 F (37.1 C) Oral SpO2 SPO2 Location O2 Delivery O2 Device O2 Flow Rate (l/min) 07/02/24 0954 07/02/24 0954 07/02/24 0954 07/02/24 1242 -- 100 % Right Arm Room air None (Room air) FIO2 (%) Pain Intensity 1 Exacerbated By Relieved By Quality -- 07/02/24950 -- -- -- 8 Duration -- Physical Exam Vitals and nursing note reviewed. Constitutional: General: She is not in acute distress. Appearance: She is well-developed. She is ill-appearing. She is not toxic- appearing or diaphoretic. Comments: Chronically ill appearing wf HENT: Head: Normocephalic and atraumatic. Right Ear: External ear normal. Left Ear: External ear normal. Nose: No congestion or rhinorrhea. Mouth/Throat: Pharynx: No oropharyngeal exudate. Eyes: General: No scleral icterus. Right eye: No discharge. Left eye: No discharge. Pupils: Pupils are equal, round, and reactive to light. Neck: Vascular: No JVD. Cardiovascular: Rate and Rhythm: Normal rate and regular rhythm. Heart sounds: Normal heart sounds. No murmur heard. Pulmonary: Effort: Pulmonary effort is normal. No respiratory distress. Breath sounds: Normal breath sounds. No stridor. No wheezing or rales. Abdominal: General: There is distension. Palpations: Abdomen is soft. Tenderness: There is no abdominal tenderness. There is no right CVA tenderness or left CVA tenderness. Musculoskeletal: General: No swelling, tenderness, deformity or signs of injury. Normal range of motion. Cervical back: Normal range of motion and neck supple. No rigidity or tenderness. No muscular tenderness. Right lower leg: No edema. Left lower leg: No edema. Lymphadenopathy: Cervical: No cervical adenopathy. Skin: General: Skin is warm and dry. Capillary Refill: Capillary refill takes less than 2 seconds. Coloration: Skin is pale. Skin is not jaundiced. Findings: No bruising, erythema, lesion or rash. Neurological: General: No focal deficit present. Mental Status: She is alert and oriented to person, place, and time. Mental status is at baseline. Sensory: No sensory deficit. Motor: No weakness. Psychiatric: Mood and Affect: Mood normal. Behavior: Behavior normal. MDM Treatment: Procedures Medications ALBUMIN, HUMAN 25 % INTRAVENOUS SOLUTION (Pyxis override) (has no administration in time range) LIDOCAINE (PF) 20 MG/ML (2 %) INJECTION SOLUTION (Pyxis override) (has no administration in time range) lidocaine (preservative free) 20 mg/mL (2 %) injection (7 mL Intradermal Given 07/02/24 1318) albumin human 25 % vial (37.5 g Intravenous Given 07/02/24 1401) Results for orders placed or performed during the hospital encounter of 07/02/24 Body Fluid Culture Specimen: Ascities; Body Fluid Result Value Ref Range GRAM STAIN SMEAR Few WBC'S. No organisms seen. CBC w/Differential Result Value Ref Range WBC 5.9 4.5 - 11.0 10*3/uL RBC 3.58 (L) 4.00 - 5.20 10*6/uL HGB 11.1 (L) 12.0 - 16.0 g/dL HCT 34.1 33.0 - 51.0 % MCV 95.2 80.0 - 100.0 fL MCHC 32.5 32.0 - 36.0 g/dL MCH 31.0 26.0 - 34.0 pg RDW 16.6 10.7 - 18.7 % MPV 9.2 6.5 - 10.0 fL Platelet Cnt 64 (L) 150 - 450 10*3/uL Differential Type Auto Neutrophils 72.4 (H) 35.0 - 66.0 % Lymphocytes 14.0 (L) 24.0 - 44.0 % Monocytes 8.0 2.1 - 13.3 % Eosinophils 5.2 (H) 0.3 - 5.0 % Basophils 0.4 0.0 - 1.0 % Neutrophils Abs 4.2 1.5 - 8.5 10*3/uL Lymphocytes Abs 0.8 (L) 1.1 - 5.0 10*3/uL Monocytes Abs 0.5 0.0 - 1.4 10*3/uL Eosinophils Abs 0.3 0.0 - 0.5 10*3/uL Basophils Abs 0.0 0.0 - 0.1 10*3/uL Comprehensive Metabolic Panel Result Value Ref Range SODIUM 139 135 - 145 mmol/L POTASSIUM 3.9 3.6 - 5.0 mmol/L CHLORIDE 112 (H) 101 - 111 mmol/L CO2 25 21 - 31 mmol/L ANION GAP 2 GLUCOSE 121 (H) 70 - 110 mg/dL CREATININE 0.8 0.4 - 1.0 mg/dL BUN 11 2 - 32 mg/dL CALCIUM 8.6 8.5 - 10.5 mg/dL PROTEIN TOTAL 6.7 6.1 - 7.8 g/dL Albumin 3.0 (L) 3.2 - 5.0 g/dL T BILIRUBIN 1.7 (H) 0.2 - 1.0 mg/dL ALP 107 42 - 121 [iU]/L AST 96 (H) 10 - 42 [iU]/L ALT (SGPT) 54 10 - 60 [iU]/L OSMOLALITY 278 266 - 309 A/G Ratio 0.8 B/C 14 10 - 20 ESTIMATED GFR 76 mL/min PT/APTT/INR Result Value Ref Range PROTIME 17.3 (H) 10.1 - 13.7 s INR 1.4 (H) 0.9 - 1.1 APTT 37.1 (H) 25.5 - 35.9 s Lipase Result Value Ref Range LIPASE 41 11 - 82 U/L Hepatitis Panel Result Value Ref Range HBSAG NEGATIVE Negative HEPATITIS BC AB, IGM NEGATIVE Negative HEPATITIS C AB REACTIVE (A) Negative HEPATITIS A IGM NEGATIVE Negative Protein Body Fluid Result Value Ref Range PROTEIN FLUID 3.0 g/dL Glucose Body Fluid Result Value Ref Range GLUCOSE FLUID 138 mg/dL Body Fluid Cell Count Result Value Ref Range Source Ascites TUBE NUMBER Syringe VOLUME 60.0 COLOR,FLUID Yellow CHARACTER Clear RBC FLUID 587 uL TOTAL NUC CELL 97 uL Fluid Comment see below LDH, Fluid Result Value Ref Range LDH FLUID 46 (L) 60 - 160 [iU]/L Albumin, Body Fluid Result Value Ref Range Source Ascities Results Vascular Procedure (Final result) Result time 07/02/24 14:24:07 Final result Narrative: Procedure: Ultrasound-guided diagnostic and therapeutic paracentesis Indication: History of alcohol abuse, chronic hepatitis C infection with cirrhosis, abdominal distention and history of ascites Complication: None immediate Description of the procedure: Written informed consent was obtained. She was placed in the supine position. The abdomen was prepped and draped in the usual sterile fashion. 1% lidocaine without epinephrine was used as a local anesthetic. Sonographic imaging was performed confirming ascites. A dermatotomy was created with an 11 blade. Using sonographic guidance aseptic trocar technique a 6.5 Swedish MERIT resolve drainage catheter was placed into the peritoneal cavity of the right lower quadrant followed by the removal 4000 mL yellow ascitic fluid. A sample was submitted for laboratory evaluation. The catheter was removed, examined and found to be intact. The dermatotomy was covered with sterile 4 x 4 and Tegaderm dressing. 37.5 g IV albumin per protocol. There were no immediate complications or patient complaints. Impression: Technically successful ultrasound-guided diagnostic and therapeutic paracentesis as above. Laboratory studies are pending. Consult: I spoke with Dr. Milton, IR, about the pt's history of present illness, physical examination and course in the ED. WILL TAKE TO IR LAB FOR PARACENTESIS. Plan: [facility] RECHECK: Discharge: The pt is awake, alert and stable appearing at time of reevaluation; 4lyellow ascitic fluid removed. Pt is stable for discharge after paracentesis. I spoke with the patient about her ED work up, diagnosis and any further treatment. I discussed the importance of following up with Dr. Coughlin for further GI work up and IR for future paracentesis. I instructed her to return to the Emergency Room for new or worsening symptoms. All of the pt's questions were answered. The patient verbalized understanding. The patient is stable at time of discharge [facility]. 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 Problems Addressed: Alcoholic cirrhosis of liver with ascites (CMS/HCC): acute illness or injury Chronic hepatitis C with cirrhosis (CMS/HCC): chronic illness or injury Amount and/or Complexity of Data Reviewed External Data Reviewed: labs, radiology and notes. Labs: ordered. Progress Note: ED Prescriptions None Final diagnoses: Alcoholic cirrhosis of liver with ascites (CMS/HCC) Chronic hepatitis C with cirrhosis (CMS/HCC) ED Disposition ED Disposition Discharge After Treatment Condition Stable Comment -- Follow-up Information [facility] Interventional Radiology In 1 week. Specialty: Interventional Radiology Contact information: [address] [place] [address] [address] [facility] [address] Kusum Coughlin MD. Specialties: Gastroenterology, [place] Provider Contact information: [address] [place] [address] [address] [facility] [address] Discharge Instructions FOLLOW UP WITH THE GI DOCTOR TO ESTABLISH CARE OR AT THE [facility]ST [facility]. RETURN TO ED IF ANY NEW OR WORSENING SYMPTOMS. Scribe Attestation: I, Gigi Isaacs, am acting as scribe for and in the presence of Pete Ponce MD. Electronically Signed By Gigi Isaacs 07/02/24 11:50 AM Provider Attestation: I personally performed the services described in the documentation, reviewed the documentation recorded by the scribe in my presence and it accurately and completely records my words and actions. [facility] History and physical note* Max Rico MD - 07/02/2024 10:53 AM EDT History and Physical for Interventional Radiology Name: Carolina Hightower : 1975 07/02/2024 HPI: ascites Past Medical History: Diagnosis Date Ascites Chronic hepatitis C virus infection (CMS/HCC) Cirrhosis (CMS/HCC) No current facility-administered medications on file prior to encounter. No current outpatient medications on file prior to encounter. Patient's allergies: Allergies Allergen Reactions Wellbutrin [Bupropion] Other (See Comments) seizures Codeine Hives Physical Exam ascites A/P: ascites. Will proceed with requested paracentesis. Discussed the potential benefits, risks, and alternatives to the proposed procedure. Ms. Hightower is in agreement with the plan of care. Signed: Max Rico MD 07/02/2024 10:53 AM [facility] Work Phone: 1(881) 585-873910-07-2024 History and physical note* Max Rico MD - 07/02/2024 10:53 AM EDT History and Physical for Interventional Radiology Name: Carolina Hightower : 1975 07/02/2024 HPI: ascites Past Medical History: Diagnosis Date Ascites Chronic hepatitis C virus infection (CMS/HCC) Cirrhosis (CMS/HCC) No current facility-administered medications on file prior to encounter. No current outpatient medications on file prior to encounter. Patient's allergies: Allergies Allergen Reactions Wellbutrin [Bupropion] Other (See Comments) seizures Codeine Hives Physical Exam ascites A/P: ascites. Will proceed with requested paracentesis. Discussed the potential benefits, risks, and alternatives to the proposed procedure. Ms. Hightower is in agreement with the plan of care. Signed: Max Rico MD 07/02/2024 10:53 AM [facility] in [facility]The [facility] [facility]09-18[facility]09-06-2024 Telephone encounter Note* Telephone Encounter - Dacia Acosta MD - 06/01/2024 1:58 PM EDT Treated with antibiotics in the hospital, discharged on Cipro and Flagyl. Dacia Acosta MD [facility]09-06-2024 Miscellaneous Notes* Telephone Encounter - Dacia Acosta MD - 06/01/2024 1:58 PM EDT Treated with antibiotics in the hospital, discharged on Cipro and Flagyl. Dacia Acosta MD * Telephone Encounter - Melisa Vick MA - 06/01/2024 1:50 PM EDT Discharge summary on Dr. Acosta's desk to review. New RX: Cipro 500 mg 1 pill BID x 6 days #12 pills Lactulose 10 gram/15 mL solution-10 g TID (30 days with 4 refills) Metronidazole 500 mg, 1 pill every 8 hours x 5 days #15 pills Bactrim DS was discontinued. Meilsa Vick MA * Telephone Encounter - Dacia Acosta MD - 06/01/2024 1:42 PM EDT Can we get her discharge summary to see what medications she was treated with? Dacia Acosta MD * Telephone Encounter - Maye Younger LPN - 06/01/2024 10:50 AM EDT Pt was discharged from [facility] on 05/31/24. Maye Younger LPN * Telephone Encounter - Dacia Acosta MD - 06/01/2024 10:23 AM EDT If she remains in the hospital these results will be handled by the hospital providers. Dacia Acosta MD * Telephone Encounter - Obed Mesa RN - 06/01/2024 10:00 AM EDT Sandi with [facility] Lab called in inpatient lab results. She states the Pt has a paracentesis and the fluid culture grew rare entero coccus with some possible anaerobes (but this isn't final). She said the sensitivity should be back tomorrow on the entero coccus. Per Savannah Hargrove RN nurse fabrication manager Dr Acosta has to care for Pt until 06/21/24 until she has time to find a new PCP. [facility] Telephone encounter Note * Telephone Encounter - Melisa Vick MA - 06/01/2024 1:50 PM EDT Discharge summary on Dr. Acosta's desk to review. New RX: Cipro 500 mg 1 pill BID x 6 days #12 pills Lactulose 10 gram/15 mL solution-10 g TID (30 days with 4 refills) Metronidazole 500 mg, 1 pill every 8 hours x 5 days #15 pills Bactrim DS was discontinued. Melisa Vick MA [facility]09-06-2024 Telephone encounter Note* Telephone Encounter - Dacia Acosta MD - 06/01/2024 1:42 PM EDT Can we get her discharge summary to see what medications she was treated with? Dacia Acosta MD [facility]09-06-2024 Telephone encounter Note* Telephone Encounter - Maye Younger LPN - 06/01/2024 10:50 AM EDT Pt was discharged from [facility] on 05/31/24. Maye Younger LPN [facility]09-06-2024 Telephone encounter Note* Telephone Encounter - Dacia Acosta MD - 06/01/2024 10:23 AM EDT If she remains in the hospital these results will be handled by the hospital providers. Dacia Acosta MD [facility]09-06-2024 Telephone encounter Note* Telephone Encounter - Obed Mesa RN - 06/01/2024 10:00 AM EDT Sandi with [facility] Lab called in inpatient lab results. She states the Pt has a paracentesis and the fluid culture grew rare entero coccus with some possible anaerobes (but this isn't final). She said the sensitivity should be back tomorrow on the entero coccus. Per Savannah Hargrove RN nurse fabrication manager Dr Acosta has to care for Pt until 06/21/24 until she has time to find a new PCP. [facility]09-06-2024 Telephone encounter Note* Telephone Encounter - Obed Mesa RN - 06/01/2024 9:48 AM EDT Sandi with [facility] Lab/Microbiology called in to give lab reports on Pt stating that Dr Acosta's office had said that Pt care had been transferred to [facility]. I let her know that Pt didn't have any PCP listed through [facility] and no establish care visit. I gave her the [employer] phone # [phone] to call with any questions. [facility]09-06-2024 Miscellaneous Notes* Telephone Encounter - Obed Mesa RN - 06/01/2024 9:48 AM EDT Sandi with [facility] Lab/Microbiology called in to give lab reports on Pt stating that Dr Acosta's office had said that Pt care had been transferred to Krishna Lara [facility]FFAIRS CONSULTANT. I let her know that Pt didn't have any PCP listed through [facility] and no establish care visit. I gave her the [employer] phone # [phone] to call with any questions. * Telephone Encounter - Janna Rao RN - 06/01/2024 9:36 AM EDT Kaylin calling from [facility] Lab/Microbiology with positive test results for patient. Informed Kaylin per record, as of 05/30/24, patient has been dismissed from department, and patient to contact [facility] office with questions at [phone]. Janna Rao RN documented in this encounterGal[facility]09-[facility]-2024 Telephone encounter Note * Telephone Encounter - Janna Rao RN - 06/01/2024 9:36 AM EDT Kaylin calling from [facility] Lab/Microbiology with positive test results for patient. Informed Kaylin per record, as of 05/30/24, patient has been dismissed from department, and patient to contact [facility] office with questions at [phone]. Janna Rao RN [facility]09-05-[address]24 [facility]09-05-2024 History of Present illness Narrative* Katelyn Parmar, [facility] - 05/31/2024 6:38 AM EDT Chart review reveals a recent lab test performed at [facility]. Unexpected results found as part of testing for Hepatitis C (HCV) HCV Quant RNA by PCR Date Value Ref Range Status 11/19/2023 HCV RNA detected by PCR. (A) HCV RNA not detected by PCR. Final HCV RNA (IU/mL) Date Value Ref Range Status 11/19/2023 38,400 (H) IU/mL Final Ordering Provider is ED provider Oct 2023 Insurance - [place] Chart review shows patient was evaluated for HCV treatment in 2019 but more recent test results show she is still viremic. Unclear if she took Mavyret or if treatment never got started. Lab result shows patient has Chronic Hepatitis C B18.2 Prior Treatment: not known Allergies: Aspirin Comment:UNCERTAIN =CHILDHOOD Bupropion Other: See Comments Codeine Rash Prednisone Rash Wellbutrin [Bupropi* Other: See Comments Comment:seizures GT needs to be determined FIB-4 Calculation: 7.56 at 05/10/2024 12:48 PM Calculated from: SGOT/AST: 117 U/L at 05/10/2024 12:48 PM SGPT/ALT: 89 U/L at 05/10/2024 12:48 PM Platelets: 82 k/uL at 05/10/2024 12:48 PM Age: 48 years Known cirrhotic, with signs of decompensation HBV status has been reviewed - recommend universal vaccination if not yet initiated HIV screen recommended Hep B Core Ab, Total (no units) Date Value 11/26/2020 Negative HBsAg (no units) Date Value 11/26/2020 Negative Hep B Surface Ab, Qual (no units) Date Value 11/26/2020 Negative HBsAg?negative,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 received paracentesis in the past. She was discharged in stable condition on April 13. States that she was discharged with an antibiotic but never received it at the pharmacy. Denies any dysuria at this time. Today, she is doing better. She denies any ongoing pain at this time. She is requesting something to assist with sleep and also something to help with allergies. Requesting Ambien today. [facility]. Patient has a known history of IV drug use involvingheroin and methamphetamine. PHYSICAL EXAMINATION BP 110/80 Pulse 66 Resp 16 Wt 71.7 kg (158 lb) LMP 11/20/2020 (Approximate) SpO2 98% BMI 28.90 kg/m GENERAL: well appearing, alert, in no acute distress HEART: regular rate and rhythm. No murmur, rubs or gallops. LUNGS: clear to auscultation, no wheezing, rhonchi, or crackles ABDOMEN: bowel sounds normal and distended EXTREMITIES: no lower extremity edema. No skin discoloration. ASSESSMENT/PLAN: 1. Kidney stone - ICD9: 592.0, ICD10: N20.0 (primary diagnosis) -Appears that she has passed 1. She also has a nonobstructing and there kidney. She understands if she were to get increased flank pain, nausea, she would need to go the emergency room. 2. Acute cystitis without hematuria - ICD9: 595.0, ICD10: N30.00 -Cefdinir sent. Follow-up with symptoms return. 3. Cirrhosis of liver with ascites, unspecified hepatic cirrhosis type (HCC) (HCC) - ICD9: 571.5, ICD10: K74.60, R18.8 -Continue with plan follow-up in May with Dr. Porras. 4. Thrombocytopenia (HCC) - ICD9: 287.5, ICD10: D69.6 -Continue with plan follow-up with Dr. Porras in May. 5. Seasonal allergic rhinitis due to pollen - ICD9: 477.0, ICD10: J30.1 -Prior success with Flonase, sent. - FLUTICASONE PROPIONATE 50 MCG/ACTUATION NASAL SPRAY,SUSPENSION Mervin Matthews APRN.CNP documented in this encounterGalion [facility] Hospital07-26-2024 NoteHNO ID: [id number] Author: MERVIN MATTHEWS APRN.CNP Service: ? Author Type: Nurse Practitioner Type: Progress Notes Filed: 04/20/2024 14:13 Note Text: Transitional Care Management TCM Eligibility Documentation The following information was gathered during patient outreach 04/17/2024 Date of Outreach: Outreach Attempt 1: Contact Made Date of Discharge 04/13/2024 Provider Documentation Carolina Hightower is a 48 year old female here today for a follow up from recent hospitalization. I have reviewed the patient's hospital course including discharge summary, discharge medications , follow up needs, labs (notable for see below), and CT with the patient and any family members present at today's visit. HPI Patient is here for hospital follow-up. Patient went to [facility] on April 11 for flank pain. Diagnosed with acute cystitis without hematuria. Labs obtained in the emergency room showed a normal white blood cell count, hemoglobin 11.1, elevated bilirubin 2.1, AST 159, ALT 107, alkaline phosphate level 131. UA showed over 100 white blood cells, [address] of the abdomen pelvis showed mild right hydronephrosis and hydroureter extending to the distal neurovascular junction without evidence of stone. There was a 9 mm nonobstructing stone seen in the right kidney. There was questionable evidence for recently passed kidney stone. Cirrhotic liver with large amount of ascites, splenomegaly was noted. She was admitted to the nursing floor, placed on IV antibiotics. Scheduled for paracentesis but upon ultrasound scanning there was not enough fluid to remove with paracentesis. She follows with Dr. Porras with gastroenterology as she has received paracentesis in the past. She was discharged in stable condition on April 13. States that she was discharged with an antibiotic but never received it at the pharmacy. Denies any dysuria at this time. Today, she is doing better. She denies any ongoing pain at this time. She is requesting something to assist with sleep and also something to help with allergies. Requesting Ambien today. Admits that the [facility] gave her trazodone last month. 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 PHYSICAL EXAMINATION BP 110/80 Pulse 66 Resp 16 Wt 71.7 kg (158 lb) LMP 11/20/2020 (Approximate) SpO2 98% BMI 28.90 kg/m? GENERAL: well appearing, alert, in no acute distress HEART: regular rate and rhythm. No murmur, rubs or gallops. LUNGS: clear to auscultation, no wheezing, rhonchi, or crackles ABDOMEN: bowel sounds normal and distended EXTREMITIES: no lower extremity edema. No skin discoloration. ASSESSMENT/PLAN: 1. Kidney stone - ICD9: 592.0, ICD10: N20.0 (primary diagnosis) -Appears that she has passed 1. She also has a nonobstructing and there kidney. She understands if she were to get increased flank pain, nausea, she would need to go the emergency room. 2. Acute cystitis without hematuria - ICD9: 595.0, ICD10: N30.00 -Cefdinir sent. Follow-up with symptoms return. 3. Cirrhosis of liver with ascites, unspecified hepatic cirrhosis type (HCC) (HCC) - ICD9: 571.5, ICD10: K74.60, R18.8 -Continue with plan follow-up in May with Dr. Porras. 4. Thrombocytopenia (HCC) - ICD9: 287.5, ICD10: D69.6 -Continue with plan follow-up with Dr. Porras in May. 5. Seasonal allergic rhinitis due to pollen - ICD9: 477.0, ICD10: J30.1 -Prior success with Flonase, sent. - FLUTICASONE PROPIONATE 50 MCG/ACTUATION NASAL SPRAY,SUSPENSION Mervin Matthews APRN.CNPOhio State Health System07-23-2024 NoteHNO ID: [id number] Author: MERVIN MATTHEWS APRN.CNP Service: ? Author Type: Nurse Practitioner Type: Progress Notes Filed: 04/17/2024 13:31 Note Text: Noted Mervin Matthews APRN.CNPOhio State Health System07-23-2024 History of Present illness Narrative* Mervin Matthews APRN.CNP - 04/17/2024 1:31 PM EDT Noted Mervin Matthews APRN.CNP * Ne Valles LPN - 04/17/2024 12:26 PM EDT [facility] [employer] EMERGENCY DEPARTMENT FOLLOW UP INITIAL CONTACT Provider Action/FYI: Initial contact with patient post discharge, spoke to Patient. Patient identified by name and date : YES SUMMARY: -Patient discharged from [facility] ED on 04/13/2024. -Follow up appointment on 04/20/2024. -Medication review done yes, patient was unable to say all medication she is taking at this time. -Presented with: CONCERNS: Patient continues to have pain, mostly in her abdomen area. NEW MEDICATIONS: Cefdinir 300 mg PO BID 14 days Furosemide (Lasix) 40 mg PO Daily MEDS HELD/DISCONTINUED: none BRIEF ED COURSE: Ne Valles LPN documented [facility]24 NoteHNO ID: [id number] Author: NE VALLES LPN Service: ? 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 Patient identified by name and date : YES SUMMARY: -Patient discharged from [facility] ED on 04/13/2024. -Follow up appointment on 04/20/2024. -Medication review done yes, patient was unable to say all medication she is taking at this time. -Presented with: CONCERNS: Patient continues to have pain, mostly in her abdomen area. 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 Patient identified by name and date : YES SUMMARY: -Patient discharged from [facility] ED on 04/13/2024. -Follow up appointment on 04/20/2024. -Medication review done yes, patient was unable to say all medication she is taking at this time. -Presented with: CONCERNS: Patient continues to have pain, mostly in her abdomen area. NEW MEDICATIONS: Cefdinir 300 mg PO BID 14 days Furosemide (Lasix) 40 mg PO Daily MEDS HELD/DISCONTINUED: none BRIEF ED COURSE: GERTRUDE Rader Jesse, APRN.CNP 04/17/2024 1:31 PM Signed Noted Mervin Matthews APRN.CNP Allergies As of Date: 04/17/2024 Noted Allergy Reaction ASPIRIN 06/02/2005 Comments: UNCERTAIN =CHILDHOOD BUPROPION 06/11/2019 14 - Other: See Comments CODEINE 06/02/2005 2 - Rash PREDNISONE 06/19/2019 2 - Rash WELLBUTRIN (BUPROPION HCL) 09/29/2012 14 - Other: See Comments Comments: seizures Date Reviewed: 02/07/2024 Reviewed by: Halina Valencia MA - Fully Assessed Reason for Visit: Transition Of Care [4074] Cmt: 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07-03-2024 Note. MICRO - Microbiology PROCEDURE: Blood Culture (bacterial) [...] Locations *1: This test was performed at: [address], [address] [place], [place] [id number] Note. MICRO - Microbiology PROCEDURE: Blood Culture (bacterial) [...] Locations *1: This test was performed at: [address], [address] [place], [place] [id number] Hospital Discharge instructions Patient Education 03/23/2024 17:50:27 [...] swollen, warm, and sore. The reddened areas havea visible border. An open sore may leak [...] or higher after 2 days on antibiotics 6560-8796 [employer]. [address] [place] [address], [place] [address]. All rights reserved. This information is not intended as a substitute for professional medical care. Always follow yourhealthcare professional's instructions. Follow Up Care 03/23/2024 14:19:24 With:DACIA ACOSTA MD Address: [address] [place] [id number]- When:2-4 days [facility] 06-28-2024 Note Discharge Instructions Thank you for allowing [facility] to assist you with your healthcare needs. The following is importantdischarge information regarding your hospital visit. Diagnosis from Today's Visit Cellulitis What to Do Next Instructions from Your Care Team No qualifying data available. Post Acute Orders No qualifying data available. You Need to Schedule the Following Appointments Follow Up with DACIA ACOSTA MD When:Within 2-4 days Where:[address] [place] [address]- Allergies Wellbutrin aspirin Hives codeine Hives Medications Please ask your primary doctor or pharmacist before taking any other medication not listed, including over the counter drugs, herbal medications, vitamins and or supplements as they may interact withyour home medications. What How Much When Instructions [...] may report side effects to FDA at 9-225-BNS-1786. What other drugs will affect cephalexin? Tell your doctor about all your other medicines, especially: metformin; or probenecid. This list is not complete. Other drugs may affect cephalexin, including prescription and saop-hjr-iffvngd medicines, vitamins, and herbal products. Not all [...] to ensure that the information provided by [employer]') is accurate, up-to-date, and complete, but no guarantee is made to that effect. Drug information contained herein may be time sensitive. [employer] information has been compiled for use by healthcare practitioners and consumers in the [place] and therefore [employer] does not warrant that uses outside of the [place] are appropriate, unless specifically indicated otherwise. [employer] drug information does not endorse drugs, diagnose patients or recommend therapy. [employer] drug information isan informational resource designed to assist licensed healthcare practitioners in caring for their p atients and/or to serve consumers viewing this service as a supplement to, and not a substitute for, the expertise, skill, knowledge and judgment of healthcare practitioners. The absence of a warningfor a given drug or drug combination in no way should be construed to indicate that the drug or drug combination is safe, effective or appropriate for any given patient. [employer] does not assume any responsibility for any aspect of healthcare administered with the aid of information [employer] provides. The information contained herein is not intended to cover all possible uses, directions, precautions, warnings, drug interactions, allergic reactions, or adverse effects. If you have questions about the drugs you are taking, check with your doctor, nurse or pharmacist. Copyright 9966-8861 [employer] Version: 12.. Revision Date: 04/27/2023. Education Materials [...] swollen, warm, and sore. The reddened areas havea visible border. An open sore may leak [...] or higher after 2 days on antibiotics 1479-4390 [employer]. [address] [place] [address]. All rights reserved. This information is not intended as a substitute for professional medical care. Always follow yourhealthcare professional's instructions. Additional Information VACCINATE! IT SAVES LIVES! Members of the community who have not yet received the COVID-19 vaccine and would like to receive it can visit one of [facility] vaccine clinics. There are many vaccine clinic locations within the [facility]. For locations and available times, please visit www.gettheshot.coronavirus.[place].gov/. It is important to note that some COVID mobile vaccine clinics are held outdoors and may be canceled in rainy or stormy conditions. To learn more about pediatric vaccinations (ages 5-11), we invite you to visit the [facility] webpage. https://www.[facility].org/pages/1183-Amtfv-Thuijrnuvzt-Zpatdguxmq-Qqthm-Emb stions.htmlTo learn more about the COVID-19 vaccine, we invite you to visit the CDC website for a list of frequently asked questions. https://www.cdc.gov/coronavirus/2019-ncov/vaccines/faq.html [facility] Patient Portal Access Instructions: Stay connected with your healthcare team and access your personal medical information anytime with the [facility] Patient Portal. If you would like a full copy of your medical records please contact the [facility] Medical Records Department Tuesday through Tuesday between 8a.m. and 4:30p.m. Please follow the directions below to access the portal: 1.Access the email account you provided upon registration to the [facility].2.Look for an invitation email from [facility].3.Open the email and access the invitation link: Accept Invitation to [facility]4.Fill in the required dhillon to create your account. Sign into www.[employer] with your username and password that you [...] you will allow to register on the [facility] Patient Portal for access to your information. You can also access the [facility] Patient Portal on the [employer]. Simply click on Health Records under [employer] and then click on the [employer] logo. HOW TO SAFELY DISPOSE OF PRESCRIPTION MEDICATIONS Please use one of the following methods to safely dispose of your unused medications. 1.Use a drug disposal kit: the drug disposal pouch allows you to safely discard your old and unuseddrugs. Ask your nurse to give you one when you are discharged.2.Visit a local take-back location: Many local pharmacies and police departments have programs that collect old and unwanted prescriptiondrugs. Call your local pharmacy or go to http://bit.[employer]/9O0Gk3c to find one close to you.3.Make use of household items: Use cat litter or old coffee grounds to dispose medications if other options arenot available. Mix your drugs with these household products, seal them in an airtight container andthrow it into the garbage. Call [facility]: [phone] to be sure your drugs can be [...] drowsiness, such as benzodiazepines, also known as benzos,including diazepam and alprazolam, muscle relaxants or sleep aids. Never sell or share prescriptionopioids. This is illegal. Store opioids in a [...] aware that I should contact my doctor. 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: Date/Time: Relationship to Patient: Witness Name/Signature: Date/Time: [facility]06-28-2024 Note ORIGINAL EXAMINATION: CT neck with intravenous [...] Date: 03/23/2024 5:09:20 PM Ordering Provider: H[facility]06-05-2024 Note Patient Outreach (INTMMN) CAROLINA HIGHTOWER ([id number]) 1975 F Date Time Provider Department 02/29/24 [...] for screening mammogram for breast cancer [Z12.31] Order(s):[facility] SCREENING [[id number]] Order #: [id number] FUTURE Prescriptions as of 03/05/2024 - ibuprofen [...] disorder, F17.2 [F17.200] 11/20/2023 Encounter Status:Closed by JUAQUIN BELL on 03/05/24[facility] 02-07-2024 NoteHNO ID: [id number] Author: MELISA THAYER MD Service: ? 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 Thayer and the following reflects his/her service. Scribed by Halina Valencia MA / Stephanie Ch MA I agree with the Chief Complaint, ROS, and Past Histories independently gathered by the clinical direct support specialist and the remaining scribed note accurately describes my personal service to the patient. Melisa Thayer 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 30 tablet0 mupirocin (BACTROBAN) 2 % ointment Apply to [...] mouth once daily. (Patient not taking: Reported on12/13/2023) 30 tablet 2 No current facility-administered medications [...] for this, ulcerations are superficial with mild surr ounding cellulitis. Must be carefully monitored for resolution. Return in 2-3 weeks, sooner as needed The patient is seen and examined by Dr. Thayer and the following reflects his/her service. Scribed by Halina Valencia MA / Stephanie Ch MA I agree with the Chief Complaint, ROS, and Past Histories independently gathered by the clinical direct support specialist and the remaining scribed note accurately describes my personal service to the patient. Melisa Thayer MD documented in [facility] encounterGal[facility]05-14-[facility]24 Telephone encounter Note * Telephone Encounter - Ashanti Squires PA-C - 02/07/2024 7:45 AM EDT Spoke with patient and states that she is overall feeling better. Denies any hematuria now, back pain, nausea, vomiting, back pain, abdominal pain, chills. She is seeing dermatology today for the sore on her chin and foot. She will continue and finish the antibiotic. Ashanti Squires PA-C 02/07/2024 [facility]05-14-[facility] Miscellaneous Notes* Telephone Encounter - Ashanti Squires PA-C - 02/07/2024 7:45 AM EDT Spoke with patient and states that she is overall feeling better. Denies any hematuria now, back pain, nausea, vomiting, back pain, abdominal pain, chills. She is seeing dermatology today for the sore on her chin and foot. She will continue and finish the antibiotic. Ashanti Squires PA-C 02/07/2024 * Telephone Encounter - Obed Mesa RN - 02/06/2024 2:11 PM EDT Phone was answered, I said hello a couple times and the phone was hung up on me. * Telephone Encounter - Obed Mesa RN - 02/06/2024 11:52 AM EDT Called and left a voicemail for the Patient to call back and ask for a nurse to receive the providers message. Obed Mesa RN * Telephone Encounter - Ashanti Squires PA-C - 02/06/2024 11:14 AM EDT Agree-needs to go to ED now. Ashanti Squires PA-C * Telephone Encounter - Obed Mesa RN - 02/06/2024 8:22 AM EDT Protocol recommends Pt go to the ER [...] She states she will be going to [facility], but I couldn't talk her into [...] Urine - Blood In-ADULT- documented in this encounterGalion [facility] Hospital05-13-2024 Telephone encounter Note * Telephone Encounter - Obed Mesa RN - 02/06/2024 2:11 PM EDT Phone was answered, I said hello a couple times and the phone was hung up on me. [facility]05-13-[facility] Telephone encounter Note* Telephone Encounter - Obed Mesa RN - 02/06/2024 11:52 AM EDT Called and left a voicemail for the Patient to call back and ask for a nurse to receive the providers message. Obed Mesa RN [facility]05-13-2024 Telephone encounter Note* Telephone Encounter - Ashanti Squires PA-C - 02/06/2024 11:14 AM EDT Agree-needs to go to ED now. Ashanti Squires PA-C [facility]05-13-[facility] Telephone encounter Note* Telephone Encounter - Obed Mesa RN - 02/06/2024 8:22 AM EDT Protocol recommends Pt go to the ER [...] She states she will be going to [facility], but I couldn't talk her into [...] tied. Protocols used: Urine - Blood In-ADULT- [facility]05-10-2024 Miscellaneous Notes* Telephone Encounter - Kemal Wright LPN - 02/03/2024 10:45 AM EDT Pt notified. She verbalized understanding. Kemal Wright LPN * Telephone Encounter - Dacia Acosta MD - 02/03/2024 10:17 AM EDT She should use the doxycycline as ordered; if not improving after 2-3 days, or if symptoms worsen, then seek care in ER Dacia Acosta MD * Telephone Encounter - Madonna Lim MA - 02/03/2024 9:59 AM EDT Pt informed, verbalized understanding. Pt reports she is now urinating straight blood and reports she may have a fever. Reports she was upall night with urinary frequency. Denies any abd/back pain or vomiting. Please advise. Madonna Lim MA * Telephone Encounter - Ashanti Squires PA-C - 02/02/2024 4:43 PM EDT Please let patientknow that her urine culture was also positive for MRSA-covered by doxycycline prescribed-sent to pharmacy. Advise f/u if not improving in 2-3 days, sooner if any worsening symptoms. Seek care in ED for fever >100, vomiting, severe back/abdominal pain. * Telephone Encounter - Madonna Lim MA - 02/02/2024 3:18 PM EDT Pt informed, verbalized understanding. [facility] [place] Madonna Lim MA * Telephone Encounter - Ashanti Squires PA-C - 02/02/2024 1:40 PM EDT Please let patient know that her culture did show MRSA on her chin. I have sent a prescription for doxycycline 1 BID to the pharmacy-[facility]. Please use sunscreen/sun protection while on this medication as it can make you more sensitive to the sun. The following approved medication requests have been transmitted electronically. Requested Prescriptions Signed Prescriptions Disp Refills doxycycline (VIBRA-TABS) 100 mg tablet 20 tablet 0 Sig: Take 1 tablet by mouth two times a day for 10 days. Authorizing Provider: ASHANTI SQUIRES PA-C 02/02/2024 documented in this encounterGalion Community Hospital05-10-2024 Telephone encounter Note * Telephone Encounter - Kemal Wright LPN - 02/03/2024 10:45 AM EDT Pt notified. She verbalized understanding. Kemal Wright LPN [facility]05-10-[facility] Telephone encounter Note* Telephone Encounter - Dacia Acosta MD - 02/03/2024 10:17 AM EDT She should use the doxycycline as ordered; if not improving after 2-3 days, or if symptoms worsen, then seek care in ER Dacia Acosta MD [facility]05-10-20[facility] Telephone encounter Note* Telephone Encounter - Madonna Lim MA - 02/03/2024 9:59 AM EDT Pt informed, verbalized understanding. Pt reports she is now urinating straight blood and reports she may have a fever. Reports she was upall night with urinary frequency. Denies any abd/back pain or vomiting. Please advise. Madonna Lim MA [facility]05-09-2024 Telephone encounter Note* Telephone Encounter - Ashanti Squires PA-C - 02/02/2024 4:43 PM EDT Please let patientknow that her urine culture was also positive for MRSA-covered by doxycycline prescribed-sent to pharmacy. Advise f/u if not improving in 2-3 days, sooner if any worsening symptoms. Seek care in ED for fever >100, vomiting, severe back/abdominal pain. [facility]05-09-20[facility] Telephone encounter Note* Telephone Encounter - Madonna Lim MA - 02/02/2024 3:18 PM EDT Pt informed, verbalized understanding. [facility] [place] Madonna Lim MA [facility]05-09-20[facility] Telephone encounter Note* Telephone Encounter - Ashanti Squires PA-C - 02/02/2024 1:40 PM EDT Please let patient know that her culture did show MRSA on her chin. I have sent a prescription for doxycycline 1 BID to the pharmacy-[facility]. Please use sunscreen/sun protection while on this medication as it can make you more sensitive to the sun. The following approved medication requests have been transmitted electronically. Requested Prescriptions Signed Prescriptions Disp Refills doxycycline (VIBRA-TABS) 100 mg tablet 20 tablet 0 Sig: Take 1 tablet by mouth two times a day for 10 days. Authorizing Provider: ASHANTI SQUIRES PA-C 02/02/2024 [facility]05-07-[facility] NoteHNO ID: [id number] Author: ASHANTI SQUIRES PA-C Service: ? Author Type: Physician Septic Tank Servicer Type: Progress Notes Filed: 01/31/2024 11:23 Note [...] is scheduled to dermatology next week in [place]. She admits to previous MRSA infection in [...] ?F) Resp 12 Ht 157.5 cm (5' 2) Wt 73.9 kg (163 lb) LMP 11/20/2020 [...] The patient indicates understandin (more content not included)...[facility]05-07-2024 History of Present illness Narrative* Ashanti Squires PA-C - 01/31/2024 10:20 AM EDT 01/31/2024 Patient presents with: Same Day Appointment: [...] is scheduled to dermatology next week in [place]. She admits to previous MRSA infection in this area. She also has two sores on her left foot that are similar. Sores are painful, no itching. She tells me she was taken off allher psychiatry medications because of her cirrhosis. Previously [...] mouth once daily. (Patient not taking: Reported on12/13/2023) No current facility-administered medications for this visit. [...] F) Resp 12 Ht 157.5 cm (5' 2) Wt 73.9 kg (163 lb) LMP 11/20/2020 [...] foot approximately dime sized. No lymphangitic streaking. +TTP. ASSESSMENT/PLAN: 1. Skin sore - ICD9: 709.9, [...] 01/31/2024 Ashanti Squires PA-C documented in this encounterGalion [facility] Hospital04-25-2024 Telephone encounter Note * Telephone Encounter - Bill Valenzuela MA - 01/19/2024 2:13 PM EDT The following approved medication requests have been [...] 180 days. Authorizing Provider: DACIA ACOSTA MA [facility]04-25-2024 Miscellaneous Notes* Telephone Encounter - Bill Valenzuela MA - 01/19/2024 2:13 PM EDT The following approved medication requests have been [...] 180 days. Authorizing Provider: DACIA ACOSTA MA * Telephone Encounter - Dacia Acosta MD - 01/19/2024 1:57 PM EDT OK to refill as ordered Dacia Acosta MD * Telephone Encounter - Wendy Mcclain LPN - 01/19/2024 10:10 AM EDT Patient has been identified by name and [...] you. Wendy Mcclain LPN. documented in this encounterGalion [facility] Hospital04-25-2024 Telephone encounter Note * Telephone Encounter - Dacia Acosta MD - 01/19/2024 1:57 PM EDT OK to refill as ordered Dacia Acosta MD [facility]04-[facility] Telephone encounter Note* Telephone Encounter - Wendy Mcclain LPN - 01/19/2024 10:10 AM EDT Patient has been identified by name and [...] Please advise. Thank you. Wendy Mcclain LPN. [facility]04-03-2024 History and physical note Author Marcelina Porras [facility] December 28, 2023 8:34am Note Date/Time December 28, 2023 8:34 am [facility] Medical Records Department [address] [place] [address] History & Physical Exam 12/28/23 0833 MR#: [id number] Acct: [id number] Name: CAROLINA HIGHTOWER Rep #:[id number] : 1975 48 From: Marcelina Porras DO PCP: Dr. Dacia Acosta MD Status:RE [facility] Location: [place] [address] History and Physical Date of Admission: 12/28/23 CAROLINA HIGHTOWER, is a 48 F who presented She presented to [facility] ED with increased fatigue, forgetfulness, abdominal distention and confusion. History of HCV with remote history of IV drug use with possible cirrhosis with thrombocytopenia through [facility]. She was admitted for acute HE secondary to decompensated cirrhosis with hyperammonemia treated with lactulose. She has a history of frequent need for paracentesis secondary to refractory ascites. CT abd/pel 5.17.19 abd pain with normal liver without lesions; splenomegaly 15.1cm; renal calculi. Imaging prior to this with normal liver and without splenomegaly. Fib4 1.82 CT abd/pel 9.17.21 pain HCV Hx with moderately cirrhotic liver with volume redistribution to right lobe without ascites; moderate splenomegaly; inflammation of subhepatic space r/t right colon. Fib4 8.76 CT abd/pel .. with cirrhotic liver with prominent caudate lobe and nodular surface without mass; splenomegaly; pancreatic calcification in uncinate process; renal calculi. Resolution of previously noted inflammation. Fib4 11.76 MELD 05.19.22 13?? She denies any no pruritis, jaundice She is having issues with lightheadedness with quick movements causing loss of balance, memory loss and brain fog is a difficulty, sleep pattern is disturbed for many years. She does have a lot of psychiatric diagnoses. Feels like she hasbeen having an increased appetite. Constipation is an issue with BM 1-2 times a week. Lactulose caused nausea and generally feeling unwell. Furosemide stopped becauseit was causing nocturia. [facility] Medical History Alcohol abuse Anemia Anxiety and depression Chronic pain Cirrhosis of liver COPD (chronic obstructive pulmonary disease) Gastric reflux GERD (gastroesophageal reflux disease) Hepatitis History of diverticulitis History of renal disease Hyperbilirubinemia Kidney stones Low iron Marijuana use Migraine headache MRSA infection Obesity Open wound Polysubstance abuse Restless legs Seizures Sleep apnea Smoker Substance abuse Thrombocytopenia Tobacco use Home Medications Vitamin D3 1,250 mcg OTHER QWEEK SUPPLEMENT 05/20/22 [History Last Taken Unknown] gabapentin 100 mg capsule 100 mg PO Q12H 07/20/23 [History Last Taken Unknown] furosemide 20 mg tablet (Lasix) 20 mg PO DAILY #90 tabs 10/07/23 [Rx Last Taken 11/09/23] lactulose 20 gram/30 mL oral solution 20 g (30 mL) PO TID 30 days #2,880 mL 10/07/23 [Rx Last Taken Unknown] spironolactone 50 mg tablet 75 mg (1.5 x 50 mg) PO DAILY #45 tabs 11/05/23 [Rx Last Taken Unknown] albuterol sulfate 90 mcg/actuation aerosol inhaler (Ventolin HFA) 2 puff inhalation Q4H PRN PRN shortness of breath or wheezing 12/04/23 [History Last Taken Unknown] ascorbate calcium (vitamin C) 500 mg tablet 500 mg PO DAILY 12/04/23 [History Last Taken Unknown] ferrous sulfate 325 mg (65 mg iron) tablet (FeroSul) 325 mg PO DAILY 12/04/23 [History Last Taken Unknown] Allergy/AdvReac Type Severity Reaction Status Date / Time bupropion HCl Allergy SEIZURES Verified 12/04/23 16:48 [From Wellbutrin] codeine Allergy Rash Verified 12/04/23 16:48 Family History Mother DiabetesFather Cancer HX Throat CA. Surgical History H/O tubal ligation History of liver biopsy Social History (Updated 12/04/23 @ 21:[address] Sowmya Mirza MD) adopted: No household members: family housing: other number of children: 3 current occupational status: unemployed pets and animals: Yes history of recent travel: No sexually active: Yes Smoking Status: Current every day smoker tobacco type: cigarettes Smoking packsper day: 1 Smoking cigarettes per day: 20.0 second hand exposure: Yes alcohol intake: current alcohol intake frequency: a few times a month substance use type: former substance user Date of last use: heroin, marijuana, heroin and methamphetamine seatbelt use: always do you feel safe at home: Yes AMANDA PATEL Narrative Admission Review of Systems: CONSTITUTIONAL: No weight loss, fever, chills,+ weakness or fatigue. HEENT: Eyes: No visual loss, blurred vision, double vision or yellow sclerae. Ears, Nose, Throat: No hearing loss, sneezing, congestion, runny nose or sore throat. SKIN: No rash or itching, lesions, wounds. CARDIOVASCULAR: No chest pain, chest pressure or chest discomfort, palpitations,edema, orthopnea, syncopal events. RESPIRATORY: No shortness of breath, cough or sputum, wheezing, hemoptysis. GASTROINTESTINAL: + anorexia, nausea, generalized abdominal discomfort, distention with recurrent ascites. No vomiting, diarrhea, melena, BRBPR. GENITOURINARY: + dysuria, frequency. No urgency or retention. NEUROLOGICAL: + Hx seizure with wellbutrin. No headache, dizziness, syncope, paralysis, ataxia, numbness or tingling in the extremities, focal weakness, change in bowel or bladder control, seizure. MUSCULOSKELETAL: + muscle, back pain, joint pain or stiffness. HEMATOLOGIC: + anemia. Easy bleeding and bruising. LYMPHATICS: No enlarged nodes. No history of splenectomy. PSYCHIATRIC: + history of depression and anxiety. ENDOCRINOLOGIC: No reports of sweating, cold or heat intolerance. No polyuria orpolydipsia. ALLERGIES: No history of asthma, hives, eczema or rhinitis. Physical Exam Narrative Physical Examination: General: Awake, alert, oriented x 3 and cooperative, laying on her side in the ED, notes ongoing vague discomfort to the abdomen. Skin: Normal color, normal turgor, no icterus, no cyanosis except occasional staged ecchymoses. HEENT: AT/NC, EOMI, PERRLA, mildly dry MM, lack of dentition, no carotid bruits or JVD noted. Lungs: CTA bilaterally, moderate effort, mild decrease BL bases, no rales, ronchi or wheezing. Heart: Regular rate and rhythm; no gallop, rub audible. Abdomen: Soft, mild generalized discomfort but no rebound or guarding, mildly distended but not tense with reaccumulation of ascites noted, mildly hyperactive BS, given ascites reaccumulation difficult to appreciate HM. Extremities: No cyanosis, no clubbing, no marked significant peripheral edema but she has in the past. Neurological: Patient awake, alert, oriented as noted, cognitive function currently baseline intact; pupils equally reactive to light and accommodation, cranial nerves II-XII grossly normal, moving all 4 extremities, no focal deficits, strength mildly to moderately globally decreased secondary to acute complaints. Psychiatric: Affect appears uncomfortable, reports being fed up with her ongoinghealth issues, does admit to being depressed but denies suicidal ideation. Lab / Micro Data 12/05/23 04:10 12/05/23 04:10 Labs: Laboratory Results - last 24 hr 12/04/23 17:25: WBC 6.1, RBC 3.68 L, Hgb 8.9 L, Hct 30.2 L, MCV 82.1, MCH 24.2 L , MCHC 29.5 L, RDW Std Deviation 79.4 H, RDW Coeff of Katalina 27.1 H, Plt Count 87 L, MPV 9.5, Immature Gran % (Auto) 0.300, Neut % (Auto) 62.4, Lymph % (Auto) 23.3, Coos % (Auto) 10.7 H, Eos % (Auto) 2.3, Baso % (Auto) 1.0, Absolute Neuts (auto) 3.8, Absolute Lymphs (auto) 1.43, Nucleated RBC % 0, Differential CommentSCANNED, Hypochromasia 1+, Anisocytosis 2+, Microcytosis 1+, Macrocytosis 1+, Target Cells RARE, PT 20.0 H, INR 1.7, Sodium 142, Potassium 4.0, Chloride 110 H, Carbon Dioxide 27.0, Anion Gap 5, BUN 10, Creatinine 0.82, Estim Creat Clear Calc 83.21, Est GFR (MDRD) Af Amer 95, Est GFR (MDRD) Non-Af 79, BUN/Creatinine Ratio 12.2, Glucose 117 H, Calcium 8.4 L, Phosphorus 2.3 L, Magnesium 1.6, TotalBilirubin 2.10 H, AST 58 H, ALT 47, Alkaline Phosphatase 143 H, Ammonia 45.0 H, Total Protein 7.3, Albumin 2.2 L, Globulin 5.1 H, Albumin/Globulin Ratio 0.4 L, Lipase 30 12/04/23 17:51: Urine Color Yellow, Urine Clarity Sl. Cloudy, Urine pH 6.5, Ur Specific [place] 1.015, Urine Protein 30 H, Urine Glucose (UA) Normal, Urine Ketones 15 H, Urine Occult Blood 50 H, Urine Nitrite Positive H, Urine Bilirubin3 H, Urine Urobilinogen 8 H, Ur Leukocyte Esterase 500 H, Urine RBC 5-10 SEEN, Urine WBC 25-50 SEEN, Ur Squamous Epith Cells 0-5 SEEN, Amorphous Sediment 1+ URATE, Urine Bacteria RARE, Urine Mucus 0 SEEN, Urine Opiates Screen NEGATIVE, Urine Methadone Screen NEGATIVE, Ur Barbiturates Screen NEGATIVE, Ur Phencyclidine Scrn NEGATIVE, Ur Amphetamines Screen NEGATIVE, MDMA (Ecstasy) Screen NEGATIVE, U Benzodiazepines Scrn NEGATIVE, Urine Cocaine Screen NEGATIVE,U Cannabinoids Screen POSITIVE H, Ur Drug Screen Comment 12/05/23 04:10: WBC 6.8, RBC 3.38 L, Hgb 8.3 L, Hct 27.6 L, MCV 81.7, MCH 24.6 L , MCHC 30.1 L, RDW Std Deviation 78.3 H, RDW Coeff of Katalina 26.8 H, Plt Count 81 L, MPV 9.7, Immature Gran % (Auto) 0.300, Neut % (Auto) 51.5, Lymph % (Auto) 30.9, Coos % (Auto) 13.5 H, Eos % (Auto) 3.1, Baso % (Auto) 0.7, Absolute Neuts (auto) 3.5, Absolute Lymphs (auto) 2.11, Nucleated RBC % 0, Anisocytosis 3+, Sodium 139, Potassium 3.9, Chloride 110 H, Carbon Dioxide 25.0, Anion Gap 4 L, BUN 11, Creatinine 0.78, Estim Creat Clear Calc 86.28, Est GFR (MDRD) Af Amer 101, Est GFR (MDRD) Non-Af 83, BUN/Creatinine Ratio 14.1, Glucose 89, Calcium 8.3 L, Phosphorus 2.8, Total Bilirubin 1.80 H, AST 57 H, ALT 46, Alkaline Phosphatase 130 H, Ammonia 37.0 H, Total Protein 7.0, Albumin 2.1 L, Globulin 4.9 H, Albumin/Globulin Ratio 0.4 L 12/05/23 : Fluid Source PERICARDIAL FLUID, Fluid Color LT YEL, Fluid Appearance CLEAR, Fluid WBC 0.136, Fluid RBC 101, Fluid Tot Cell Count 0.189 H, Fld Polynuclear WBCs # 0.006, Fld Polynuclear WBCs % 4.4, Fluid Mononuclear WBCs 0.130, Fld Mononuclear WBCs % 95.6, Fluid Lymphocytes 27, Fluid Macrophages 69, Fld Mesothelial Cells 4, Fl Pathologist Comment May follow, Fluid Glucose 95 H, Fluid Comment 2 SEE COMMENT Micro: Microbiology 12/05/23 Unknown Fluid - Ascites Gram Stain - Final Imaging Radiology Impression Abdomen/Pelvis CT 12/04/23 17:14 IMPRESSION: 1. 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 2. Diffuse abdominal ascites. 3. Splenomegaly. 4. Hepatic cirrhosis. 5. Portal hypertension. 6. Nonobstructive right renal stones measuring up to 10 mm. Electronically Signed: Tejas Bhakta MD at 19:07 EDT Reading Location ID and State: [facility] / [place] , Service support , Assessment & Plan Assessment/Plan (1) Cirrhosis of liver: QUALIFIERS: Hepatic cirrhosis type: unspecified hepatic cirrhosis Ascites presence: with ascites Qualified Code(s): K74.60 - Unspecified cirrhosis of liver; R18.8 - Other ascites (2) Ascites: QUALIFIERS: Ascites type: due to alcoholic hepatitis Qualified Code(s): K70.11 - Alcoholic hepatitis with ascites PLAN: Plan Abdominal ascites in the setting of alcoholic liver cirrhosis * admitted o/a of abdominal pain * last had paracentesis about 2-3 weeks ago. Usually has it every 2-3 weeks * CT abdomen showed massive ascites and distended gallbladder with some wall thickening and enhancement but without gallstones or biliary dilatation. It is difficult to check Wellington sign due to massive ascites. She underwent large- volume paracentesis. Awaiting analysis for SBP. * Continue current medication regimen. And midodrine 10 mg p.o. 3 times daily to help decrease the amount of ascites that she makes on a daily basis. Check alpha-fetoprotein * Nadolol 10 mg p.o. twice daily for variceal prophylaxis #Alcoholic liver cirrhosis: On lactulose, nadolol and spironolactone She will get an upper endoscopy to look for progression of cirrhosis involving upper GI tract including varices, portal gastropathy, gastric antral vascular ectasia. I have examined the patient and the H&P has been reviewed. There are no clinicalchanges since date of exam. 12/28/23 0834 <Electronically signed by Marcelina Porras DO> Cosigner Signature (if applicable): CC: Dr. Dacia Acosta MD; Marcelina Porras DO~ Signed [facility] Work Phone: [phone]) 406-297704-03-2024 Procedure [facility] 12-28-2023 Procedure [facility]03-19-2024 History of Present illness Narrative* Mervin Matthews APRN.COMMUNITY SERVICE OFFICER - 12/13/2023 1:00 PM EDT Chief Complaint Patient presents with: ER F/U: [facility] multiple times from 10/2023-11/3023: abdominal pain, cirrhosis of liver, ascites HPI Carolina Hightower is a 48 year old female who presents here today for Hospital Discharge Follow up. Patient is here for emergency room and hospital follow-up. Patient has had multiple trips to the emergency room at [facility]. This is ranged from October 2023 [...] this is inappropriate. I discussed that if shehas diffuse abdominal pain and her independent distributor cannot fit her into his schedule, she would need to go to the emergency room. She had a CAT scan of her abdomen pelvis on December 03 which revealeddiffuse gallbladder distention suggesting ectopic gallbladder, diffuse abdominal ascites, splenomegaly, hepatic cirrhosis, portal hypertension, nonobstructive right renal stone measuring up to 10 mm.I discussed that repeating a CAT scan would not be advisable at this time. She did request a refillof Zofran and Vistaril for itching and nausea. [...] under the care of a specialist for thesedisease and symptoms. I discussed with her that she needs to return to her independent distributor for evaluation. I discussed that if she [...] ONDANSETRON 4 MG DISINTEGRATING TABLET Mervin Matthews APRN.DEEPIKA This note was partly generated using Protecode voice recognition dictation and may contain some misspelled or inaccurate words missed on review. [facility] NoteHNO ID: [id number] Author: MERVIN MATTHEWS APRN.DEEIPKA Service: ? Author Type: Nurse Practitioner Type: Progress Notes Filed: 12/13/2023 14:13 Note Text: Chief Complaint Patient presents with: ER F/U: [facility] multiple times from 10/2023-11/3023: abdominal pain, cirrhosis of liver, ascites HPI Carolina Hightower is a 48 year old female who presents here today for Hospital Discharge Follow up. Patient is here for emergency room and hospital follow-up. Patient has had multiple trips to the emergency room at [facility]. 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 I discussed that if she [...] ONDANSETRON 4 MG DISINTEGRATING TABLET Mervin Matthews APRN.COMMUNITY SERVICE OFFICER This note was partly generated using Protecode voice recognition dictation and may contain some misspelled or inaccurate words missed on review.[facility]03-18-2024 Miscellaneous Notes* Telephone Encounter - Obed Mesa RN - 12/12/2023 2:42 PM EDT Pt canceled appointment. * Telephone Encounter - Obed Mesa RN - 12/12/2023 1:30 PM EDT Pt called in and reported she wouldn't [...] she will try to make it to thebus to get here. She states she will call in later if she is not able to make it in. documented in this [facility]03[facility]24 Discharge summary Author Shon Quintero [facility] December 09, 2023 11:32pm Note Date/Time December 09, 2023 9:3 4pm [facility] Medical Records Department [address] [place] [address] Emergency Department Summary 12/09/23 MR#: [id number] Acct: [id number] Name: CAROLINA HIGHTOWER Rep #:[id number] : 1975 48 From: Erik BALDERRAMA PCP: Dr. Dacia Acosta MD Status:RE G ER Location: ED HPI <CONCHIS Robles - Last Filed: 12/09/23 22:47> History of Present Illness Chief Complaint: Abd Pain Narrative Narrative: Patient is a 48-year-old female who presents to the emergency department with complaints of abdominal pain after eating a fish sandwich at approximately 6 PM. Patient has a medical history of hepatitis C, ascites, chronic abdominal pain, history of hepatic encephalopathy, patient states that she has not taken her lactulose in last 2 days because she does not have it because she forgot it somewhere. Patient states after eating fish damage, she developed severe pain to her lower abdomen. She states that she felt nauseous however had no vomiting. She states she still drinks seldom however is not drinking tonight. Patient denies any fever or chills, patient denies any blood in stool or vomit. PFSH <CONCHIS Robles - Last Filed: 12/09/23 22:47> PFS Medical History Alcohol abuse Anemia Anxiety and depression Chronic pain Cirrhosis of liver COPD (chronic obstructive pulmonary disease) Gastric reflux GERD (gastroesophageal reflux disease) Hepatitis History of diverticulitis History of renal disease Hyperbilirubinemia Kidney stones Low iron Marijuana use Migraine headache MRSA infection Obesity Open wound Polysubstance abuse Restless legs Seizures Sleep apnea Smoker Substance abuse Thrombocytopenia Tobacco use Home Medications Vitamin D3 1,250 mcg OTHER QWEEK SUPPLEMENT 05/20/22 [History Last Taken Unknown] gabapentin 100 mg capsule 100 mg PO Q12H nerve pain 07/20/23 [History Last Taken Unknown] lactulose 20 gram/30 mL oral solution 20 g (30 mL) PO TID liver 30 days #2,880 mL 10/07/23 [Rx Last Taken Unknown] albuterol sulfate 90 mcg/actuation aerosol inhaler (Ventolin HFA) 2 puff inhalation Q4H PRN PRN shortness of breath or wheezing 12/04/23 [History Last Taken Unknown] ascorbate calcium (vitamin C) 500 mg tablet 500 mg PO DAILY vitamin 12/04/23 [History Last Taken Unknown] ferrous sulfate 325 mg (65 mg iron) tablet (FeroSul) 325 mg PO DAILY supplement 12/04/23 [History Last Taken Unknown] furosemide 40 mg tablet 40 mg PO DAILY 1 month #30 tabs 12/06/23 [Rx Last Taken Unknown] spironolactone 100 mg tablet 100 mg PO DAILY 1 month #30 tabs 12/06/23 [Rx Last Taken Unknown] spironolactone 50 mg tablet 30 mg (0.6 x 50 mg) PO DAILY #45 tabs 12/06/23 [Rx Last Taken Unknown] dicyclomine 10 mg capsule 10 mg PO 0730,1130,1630,2200 PRN abdominal cramps 30 days #120 caps 12/07/23 [Rx Last Taken Unknown] midodrine 10 mg tablet 10 mg PO TID 1 month #90 tabs 12/07/23 [Rx Last Taken Unknown] nicotine 21 mg/24 hr daily transdermal patch 21 mg transdermal DAILY 28 days #28ea 12/07/23 [Rx Last Taken Unknown] pantoprazole 40 mg tablet,delayed release (Protonix) 40 mg PO BID 1 month #60 tabs 12/07/23 [Rx Last Taken Unknown] Allergy/AdvReac Type Severity Reaction Status Date / Time bupropion HCl Allergy SEIZURES Verified 12/09/23 18:52 [From Wellbutrin] codeine Allergy Rash Verified 12/09/23 18:52 Family History Mother Diabetes Father Cancer HX Throat CA. 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, marijuana, heroin and methamphetamine seatbelt use: always do you feel safe at home: Yes ROS <CONCHIS Robles - Last Filed: 12/09/23 22:47> ROS ED ROS Narrative Constitutional: Negative for fever, chills, weight loss, weakness Eyes: Negative for vision loss, vision change, double vision ENT: Negative for any sore throat, ear pain, congestion Cardiovascular: Negative for any chest pain, tightness, palpitations Respiratory: Negative for any cough, sputum production, hemoptysis, dyspnea, dyspnea on exertion, orthopnea Gastrointestinal: Negative for any vomiting, diarrhea, constipation, blood in stool, blood in vomit. Positive for abdominal pain : Negative for any urinary frequency, dysuria, retention, blood in urine Muscle skeletal: Negative for any neck pain, back pain Neurological: Negative for any headache, syncope, dizziness Skin: Negative for any rashes, itching, abrasions, lacerations Psychiatric: Negative for any depression, anxiety, stress, suicidal ideation, homicidal ideation Hematologic: Negative for any excessive bruising, easy bleeding EXAM <CONCHIS Robles - Last Filed: 12/09/23 22:47> Physical Exam Narrative Exam Narrative: Vital signs reviewed. Patient is alert and orient x 4. HEET: Head normocephalic atraumatic, TMs clear bilaterally. Posterior pharynx is clear, moist mucous membranes. Nares clear bilaterally. Neck: Supple with no lymphadenopathy or tenderness. No signs of meningismus. Cardiac: Regular rate and rhythm no murmurs gallops or rubs, equal peripheral pulses bilaterally. Respiratory: Lungs clear to auscultation bilaterally. No chest tenderness. Abdomen: Patient abdomen does appear slightly distended however patient has positive fluid wave, no pain on palpation, no peritoneal signs. No abdominal bruit or pulsatile masses. No hepatosplenomegaly Extremities: No peripheral edema, no signs of gross trauma or deformity. Activefull range of motion of all extremities. Neuro: Cranial nerves II through XII intact, no focal neurological deficits. Skin: Clean dry and intact with no rash, purpura, petechiae, vesicles or pustules. Backs/flank: No CVA tenderness, no midline spinal tenderness, no deformity. Psych: Normal mood and affect. No SI, HI or acute psychosis. Const Vital Signs: 12/09/23 18:49 12/09/23 21:12 12/09/23 22:08 Temperature 97.4 F L Temperature Source Temporal Pulse Rate 72 80 77 Respiratory Rate 18 14 16 Blood Pressure 132/100 H 131/81 H 112/73 Blood Pressure Mean 110 97 86 Pulse Ox 100 100 100 Oxygen Delivery Method Room Air Room Air Room Air <Dr. Shon Quintero MD - Last Filed: 12/09/23 23:32> Physical Exam Const Vital Signs: 12/09/23 18:49 12/09/23 21:12 12/09/23 22:08 Temperature 97.4 F L Temperature Source Temporal Pulse Rate 72 80 77 Respiratory Rate 18 14 16 Blood Pressure 132/100 H 131/81 H 112/73 Blood Pressure Mean 110 97 86 Pulse Ox 100 100 100 Oxygen Delivery Method Room Air Room Air Room Air [facility] <CONCHIS Robles - Last Filed: 12/09/23 22:47> [facility] Lab Data Labs: Laboratory Results - last 24 hr 12/09/23 12/09/23 12/09/23 20:45 21:09 23:00 WBC 7.3 RBC 3.64 L Hgb 8.9 L Hct 29.8 L MCV 81.9 MCH 24.5 L MCHC 29.9 L RDW Std Deviation 75.5 H RDW Coeff of Katalina 25.8 H Plt Count 69 L MPV TNP Immature Gran % (Auto) 0.300 Neut % (Auto) 64.5 Lymph % (Auto) 21.5 Coos % (Auto) 10.8 H Eos % (Auto) 1.9 Baso % (Auto) 1.0 Absolute Neuts (auto) 4.7 Absolute Lymphs (auto) 1.56 Nucleated RBC % 0 Platelet Estimate MOD DEC RBC Morphology N CHROM Anisocytosis 1+ Microcytosis 1+ Ovalocytes RARE PT 19.2 H INR 1.6 Sodium 139 Potassium 3.7 Chloride 112 H Carbon Dioxide 23.0 Anion Gap 4 L BUN 10 Creatinine 0.89 Estim Creat Clear Calc 75.00 Est GFR (MDRD) Af Amer 86 Est GFR (MDRD) Non-Af 71 BUN/Creatinine Ratio 11.2 Glucose 108 H Calcium 8.8 Total Bilirubin 1.70 H Direct Bilirubin 0.85 H AST 73 H ALT 45 Alkaline Phosphatase 148 H Ammonia 29.0 Total Protein 8.0 Albumin 2.7 L Globulin 5.3 H Albumin/Globulin Ratio 0.5 L Lipase 58 Serum , Qual NEGATIVE Urine Color Yellow Urine Clarity Clear Urine pH 6.5 Ur Specific [place] 1.020 Urine Protein 30 H Urine Glucose (UA) Normal Urine Ketones 5 H Urine Occult Blood 150 H Urine Nitrite Positive H Urine Bilirubin 1 H Urine Urobilinogen 4 H Ur Leukocyte Esterase 100 H Urine RBC 0 SEEN Urine WBC 10-25 SEEN Ur Squamous Epith Cells 0-5 SEEN Urine Bacteria 1+ Urine Mucus 2+ Treatment and Re-Evaluation :: Differential diagnosis includes however is not limited to: Hepatic encephalopathy, acute on chronic abdominal pain, bowel obstruction, ascites, spontaneous bacterial peritonitis. Patient appears alert, patient appears nontoxic, vital signs are stable. Patient presents to the emergency department with complaints of abdominal pain after eating a fish sandwich. Patient was recently discharged 2 days ago. Patient was admitted on December 04, 2023, she had a paracentesis at that time [id number] cc out. Patient states that her abdomen never felt better since she is left. Patient denies any nausea or vomiting. Patient received some basic laboratory values including liver panel, PT/INR, ammonia level. Patient be given IV morphine, IV Zofran. Patient be reevaluated. Patient's CBC was unremarkable, baseline, patient's hemoglobin 8.9, this is baseline for the patient. Patient's PT/INR was baseline with a PT of 19.2, INR 1.6, this is decreased since 12/06/2023. Patient's chemistries show normal renalfunction, glucose 108. Total bilirubin is 1.7, direct bilirubin 0.85, alkaline phosphatase is 148. Patient is not . On reevaluation, patient still complaining of pain. Patient will be Patient received a full abdominal x-ray series. <Dr. Shon Quintero MD - Last Filed: 12/09/23 23:32> MDM MDM Narrative Medical decision making narrative: I have personally performed a face to face assessment of the patient and have reviewed the DARWIN Note. I performed a substantive portion of the visit including all aspects of the following. My lopez findings include: History is remarkable for acute on chronic abdominal pain. She was recently admitted to the hospital. She had a paracentesis that was unremarkable. Patient's ascites w Exam is remarkable for abdominal tenderness. She does have slight tympany. There is no shifting dullness to percussion or fluid wave appreciated. Patient does not have guarding. Lungs are clear to auscultation. Breath sounds are symmetric. Heart is regular. Rate is normal. There is no murmur, gallop or rub. Patient has no CVA tenderness. Medical Decision Making differential diagnosis would be abdominal pain of unknown etiology, doubt spontaneous bacterial peritonitis. This could representan ileus. This is may be an atypical presentation for early bowel obstruction. Blood work was obtained. Blood work revealed chronic anemia and actually her hemoglobin is higher than normal. Lipase is normal. test was negative. Total bili is slightly elevated. Abdominal series is pending. Other additions or changes: I did review the history documented by nurse practitioner. Agree this occurred shortly after patient had a meat sandwich. Patient was informed that the cause of her pain is unknown. She was instructed to follow-up with her doctor. History & Record Review Additional record(s) reviewed:: Prior inpatient record (Most recent records werereviewed. She was admitted for hepatic encephalopathy and hepatic cirrhosis. She underwent paracentesis. Patient also has history of polysubstance abuse.), Prior ED visit and Prior labs Lab Data Attestation: I reviewed the patient's lab results. Lab results narrative: Patient has chronic anemia. H&H is 8.9 and 29.8. Cells are microcytic. There is oversights as well. INR and PTT are normal. Ammonia levels normal. Liver enzymes reveal slight elevation of AST at 73. Total bili is 1.7. Lipase is normal. test is normal. Labs: Laboratory Results - last 24 hr 12/09/23 12/09/23 12/09/23 20:45 21:09 23:00 WBC 7.3 RBC 3.64 L Hgb 8.9 L Hct 29.8 L MCV 81.9 MCH 24.5 L MCHC 29.9 L RDW Std Deviation 75.5 H RDW Coeff of Katalina 25.8 H Plt Count 69 L MPV TNP Immature Gran % (Auto) 0.300 Neut % (Auto) 64.5 Lymph % (Auto) 21.5 Coos % (Auto) 10.8 H Eos % (Auto) 1.9 Baso % (Auto) 1.0 Absolute Neuts (auto) 4.7 Absolute Lymphs (auto) 1.56 Nucleated RBC % 0 Platelet Estimate MOD DEC RBC Morphology N CHROM Anisocytosis 1+ Microcytosis 1+ Ovalocytes RARE PT 19.2 H INR 1.6 Sodium 139 Potassium 3.7 Chloride 112 H Carbon Dioxide 23.0 Anion Gap 4 L BUN 10 Creatinine 0.89 Estim Creat Clear Calc 75.00 Est GFR (MDRD) Af Amer 86 Est GFR (MDRD) Non-Af 71 BUN/Creatinine Ratio 11.2 Glucose 108 H Calcium 8.8 Total Bilirubin 1.70 H Direct Bilirubin 0.85 H AST 73 H ALT 45 Alkaline Phosphatase 148 H Ammonia 29.0 Total Protein 8.0 Albumin 2.7 L Globulin 5.3 H Albumin/Globulin Ratio 0.5 L Lipase 58 Serum , Qual NEGATIVE Urine Color Yellow Urine Clarity Clear Urine pH 6.5 Ur Specific [place] 1.020 Urine Protein 30 H Urine Glucose (UA) Normal Urine Ketones 5 H Urine Occult Blood 150 H Urine Nitrite Positive H Urine Bilirubin 1 H Urine Urobilinogen 4 H Ur Leukocyte Esterase 100 H Urine RBC 0 SEEN Urine WBC 10-25 SEEN Ur Squamous Epith Cells 0-5 SEEN Urine Bacteria 1+ Urine Mucus 2+ Radiography Chest X-Ray - ED: Read by ED Physician (Three-view abdominal series reveals no acute pathology. Cardiac silhouette size normal. Lung parenchyma normal. Hilum is normal. Osseous structures are unremarkable. The abdominal portion reveals no evidence of free air, air-fluid levels or dilation of the small or large bowel. The image is ne) Treatment and Re-Evaluation Comments:: In light of normal workup a nonsurgical abdomen with normal abdominalseries patient was discharged home with appropriate home-going structures for abdominal pain of unknown etiology. Patient was not treated with pain medicine because of her history of polysubstance abuse. Discharge Plan Triage Chief Complaint: Abd Pain ED Midlevel Provider: Erik Cordova ED Provider: Shon Quintero Dx/Rx/DC Orders Clinical Impression: Hepatitis C, chronic, Cirrhosis of liver, Abdominal pain in female, Iron deficiency anemia Instructions: ED Abdominal Pain Unkn Cause Fem Prescriptions: No Action Vitamin D3 1,250 mcg OTHER QWEEK Rx Instructions: TAKES ON MODAY BY MOUTH lactulose 20 gram/30 mL solution 20 g PO TID 30 Days Qty: 2880 2RF Patient Comments: HAS NOT BEEN TAKING LACTULOSE AT HOME SINCE BEING DC OTHER THAN 1-2 TIMES Rx Instructions: And adjust the frequency to have him goal of 3 bowel movements per day gabapentin 100 mg capsule 100 mg PO Q12H Patient Comments: Take 1 capsule by mouth twice daily pt taking as needed. albuterol sulfate [Ventolin HFA] 90 mcg/actuation HFA aerosol inhaler 2 puff inhalation Q4H PRN PRN (Reason: shortness of breath or wheezing) ferrous sulfate [FeroSul] 325 mg (65 mg iron) tablet 325 mg PO DAILY ascorbate calcium (vitamin C) 500 mg tablet 500 mg PO DAILY spironolactone 50 mg tablet 30 mg PO DAILY Qty: 45 2RF furosemide 40 mg tablet 40 mg PO DAILY 30 Days Qty: 30 3RF spironolactone 100 mg tablet 100 mg PO DAILY 30 Days Qty: 30 3RF Rx Instructions: Hold if serum potassium more than 5.0. nicotine 21 mg/24 hr Patch 24 Hour 21 mg transdermal DAILY 28 Days Qty: 28 0RF dicyclomine 10 mg Capsule 10 mg PO 0730,1130,1630,2200 PRN (Reason: abdominal cramps) 30 Days Qty: 120 2RF pantoprazole [Protonix] 40 mg tablet,delayed release (DR/EC) 40 mg PO BID 30 Days Qty: 60 1RF midodrine 10 mg tablet 10 mg PO TID 30 Days Qty: 90 2RF Rx Instructions: do not give last dose of day after 6PM or within 4 hrs of bedtime Hold if SBP more than 110 mmHg Primary Care Provider: Dacia Acosta Referrals: Dacia Acosta MD [Primary Care Provider] - 3-5 Days if not improving Disposition Disposition: Home, Self Care What to do if you have Problems For any increased pain, shortness of breath, bleeding, nausea or vomiting, chestpain, or any unexpected problems, contact your Primary Care Provider. Call [facility] ([phone]) or report to the closest Emergency Room. Call 911 if necessary. 12/09/232246 <Electronically signed by Erik BALDERRAMA> Cosigner Signature (if applicable): 12/09/232331 <Electronically signed by Isabelle DOOLEY> CC: Dr. Dacai Acosta MD ~ Signed [facility] Work Phone: [phone] 446-875603-13-2024 Discharge summary Author Son Adams [facility] December 07, 2023 2:39pm Note Date/Time December 07, 2023 2:3 7pm [facility] Medical Records Department [address] [place] [address] Discharge Summary 12/07/23 1437 MR#: [id number] Acct: [id number] Name: CAROLINA HIGHTOWER Rep #:[id number] : 1975 48 From: Son Connelly PCP: Dr. Dacia Acosta MD Status:AD M IN Location: [facility] [id number] Providers Date of Admission: 12/04/23 Date of Discharge: 12/07/23 Primary Care Physician: Dr. Dacia Acosta MD Consultations 12/05/23 18:08 Consult: Podiatry Routine Consulting Provider: Ricardo Pollack Reason for Consult: RIGHT ingrown toe nal with infection? EMERGENT Consult: No MD Notified: Yes Date Notified: 12/05/23 Time Notified: 18:08 Method of Notification: Text Reason For Visit: DECOMPENSATED CIRRHOSIS, UTI Diagnosis Discharge Diagnosis (1) Iron deficiency anemia: Status: Acute Code(s): D50.9 - Iron deficiency anemia, unspecified Qualifiers: Iron deficiency anemia type: chronic blood loss Qualified Code(s): D50.0 - Iron deficiency anemia secondary to blood loss (chronic) (2) Hepatitis C, chronic: Status: Chronic Code(s): B18.2 - Chronic viral hepatitis C Qualifiers: Hepatic coma status: without hepatic coma Qualified Code(s): B18.2 - Chronic viral hepatitis C (3) Cirrhosis of liver: Status: Acute Code(s): K74.60 - Unspecified cirrhosis of liver Qualifiers: Hepatic cirrhosis type: unspecified hepatic cirrhosis Ascites presence:with ascites Qualified Code(s): K74.60 - Unspecified cirrhosis of liver; R18.8 - Other ascites (4) Chronic pain of toe of right foot: Status: Acute Code(s): M79.674 - Pain in right toe(s); G89.29 - Other chronic pain (5) Tinea unguium: Status: Acute Code(s): B35.1 - Tinea unguium (6) Nail dystrophy: Status: Acute Code(s): L60.3 - Nail dystrophy Plan The patient is a 48 y/o F came to ED with generalized abdominal pain and nausea for the last 2 days. Patient also has dysuria for past several days and was puton Macrobid a week ago by PCP but patient not taking it because of fear that might make her abdominal pain worse. Patient is not adherent with regimen of lactulose she is confused. Denies fever or chills. #1. Worsening ascites with history of chronic decompensated hep C cirrhosis requiring multiple recurrent paracentesis, hepatic encephalopathy, thrombocytopenia and esophageal varices suggestive of portal hypertension: Patient is abdominal discomfort. Patient admitted to PCU. Patient went for paracentesis. Ultrasound called to send the fluid for analysis to calculate SAAG. Chronic thrombocytopenia due to decompensated cirrhosis. She ranges anywhere between 50,000-80,000. Nonadherent to lactulose. Continue IV ceftriaxone. Patient had 3200 mL clear fluid drained. 25 g IV albumin ordered. 3: Patient is alert and awake. Her abdominal pain has resolved. Paracentesis fluid reviewed. Cell count not consistent with SBP therefore ruledout. Fluid culture Gram stain no organism. Patient does not need antibiotic. 12/05 about 4 PM: Complain of abdominal pain discharge is canceled because of abdominal pain. Seems mainly from stomach distention. Bentyl ordered. Diet changed to soft bite sized easily chewable food. 12/06: Patient complained of abdominal pain in the morning and was given Bentyl 10 mg, advised half an hour before meal. Patient got relief with the oxycodone. Started on pantoprazole 40 mg twice daily and prescription was given for Bentyl, pantoprazole. Prescription also given for midodrine 10 mg 3 times dailyand to hold if SBP more than 110 mmHg. Follow-up in GI clinic. #2. Abnormal UA, UTI ruled out.: UA upon ED evaluation remarkable for nitrite and LE +500. WBC 25-50 cells, Urine culture pending. Empirically patient started on IV ceftriaxone. 12/05: Urine culture no growth. UTI ruled out. Does not need antibiotic. #3. Chronic COPD: Will hold all home inhalers in the interim placed on ATC budesonide therapy, PRN albuterol, HOB, IS parameters. #4. Incidental nonobstructive right renal stones: CT abdomen pelvis with nonobstructive right renal stones measuring up to 10 mm. #5. History of polysubstance abuse: Patient with prior history of IV drug abusewith last usage approximately 7 years prior to current presentation with previous heroin, methamphetamine, cannabis usage, UDS requested. = #6. Anxiety and depression: Per current list on a regimen, clarifying as patient in the past had been on a significant regimen including duloxetine, desvenlafaxine, aripiprazole home regimen. Given patient's significant displeasure with her ongoing health issues would be imperative to potentially restart medications as well as outpatient counseling. Case management consulted. #7. Chronic normocytic anemia/iron deficiency anemia: Admission hemoglobin 8.9,MCV 82.1, Baseline hemoglobin runs between 9 to 10 g. #8. Other multiple comorbidities include obesity grade 3 mainly fluid weight, GERD, obstructive sleep apnea on CPAP and chronic tobacco use/smoking. Patient had left toe ingrown nail and fungal infection. Podiatry consult requested. Patient can go home to see the collect on delivery clerk. CODE status: Patient does not have healthcare power of title attorney nor living will. Full Code status. Discharge medication reconciliation done. Discharge follow-up instructions completed. Discharge process discussed with the patient and all questions wereanswered to patient's satisfaction. Follow with PCP in 1 to 2 weeks Total time spent, exact 35 minutes on discharge meds reconciliation, examination, coordination of care with nurses and ancillary staff, review of imaging and blood test and discussion with the patient on follow-up instructions. Medications at Discharge Home Medications Vitamin D3 1,250 mcg OTHER QWEEK SUPPLEMENT 05/20/22 gabapentin 100 mg capsule 100 mg PO Q12H 07/20/23 lactulose 20 gram/30 mL oral solution 20 g (30 mL) PO TID 30 days #2,880 mL 10/07/23 albuterol sulfate 90 mcg/actuation aerosol inhaler (Ventolin HFA) 2 puff inhalation Q4H PRN PRN shortness of breath or wheezing 12/04/23 ascorbate calcium (vitamin C) 500 mg tablet 500 mg PO DAILY 12/04/23 ferrous sulfate 325 mg (65 mg iron) tablet (FeroSul) 325 mg PO DAILY 12/04/23 furosemide 40 mg tablet 40 mg PO DAILY 1 month #30 tabs 12/06/23 spironolactone 100 mg tablet 100 mg PO DAILY 1 month #30 tabs 12/06/23 spironolactone 50 mg tablet 30 mg (0.6 x 50 mg) PO DAILY #45 tabs 12/06/23 dicyclomine 10 mg capsule 10 mg PO 0730,1130,1630,2200 PRN abdominal cramps 30 days #120 caps 12/07/23 midodrine 10 mg tablet 10 mg PO TID 1 month #90 tabs 12/07/23 nicotine 21 mg/24 hr daily transdermal patch 21 mg transdermal DAILY 28 days #28ea 12/07/23 pantoprazole 40 mg tablet,delayed release (Protonix) 40 mg PO BID 1 month #60 tabs 12/07/23 Physical Exam Narrative Seen and examined. Patient again complained of abdominal pain mainly upper after eating food. Since patient might have pain from stomach stretch/distention. Discharge canceled. Bentyl ordered. Patient crying. She had paracentesis yesterday. Physical exam General: Alert, Oriented x3, Cooperative, obesity grade 2 BMI 33.5 kg/m? HEENT: Atraumatic, PERRLA, EOMI, Normocephalic Oral: No Gingival or Mucosal Lesions/ Ulcerations Neck: Supple, No JVD, Negative Carotid Bruits Chest wall/Lungs: Air entry diminished in bilateral lung bases. No crepitation/rhonchi Cardiovascular: Regular rate, Regular Rhythm, Normal S1, Normal S2, No M/G/R Abdomen: Bowel Sounds Present, mild abdominal distention. Still has mild ascites. Abdomen is soft. No significant tenderness/rebound tenderness. : No dysuria. No renal angle tenderness. No suprapubic tenderness. Extremities: No edema, Capillary Refill Less than 3 Seconds Skin: No rashes, No breakdown Musculoskeletal: Ingrown toenail. No Tenderness to Palpation of Joints or Extremities Neurological: Cranial nerves II-XII grossly intact, DTR 2+/4. No acute focal neurological deficit. Psych/Mental Status: Flat affect. Weight / BMI Weight Weight: 175 lb 11.335 oz Body Mass Index (BMI) 32.1 ABG / Lab / Microbiology Data 12/07/23 07:10 12/07/23 07:10 Laboratory: Laboratory Results - last 24 hr 12/05/23 08:50: Fluid Albumin 0.7, Fluid Amylase 13 12/07/23 07:10: WBC 5.3, RBC 3.45 L, Hgb 8.4 L, Hct 27.9 L, MCV 80.9 L, MCH 24.3L, MCHC 30.1 L, RDW Std Deviation 75.2 H, RDW Coeff of Katalina 25.8 H, Plt Count 59 L, Immature Gran % (Auto) 0.400, Neut % (Auto) 47.4, Lymph % (Auto) 34.6, Coos %(Auto) 12.2 H, Eos % (Auto) 4.6, Baso % (Auto) 0.8, Absolute Neuts (auto) 2.5, Absolute Lymphs (auto) 1.82, Nucleated RBC % 0, Platelet Estimate MKD DEC, Hypochromasia 1+, Anisocytosis 1+, Sodium 140, Potassium 3.7, Chloride 110 H, Carbon Dioxide 26.0, Anion Gap 4 L, BUN 9, Creatinine 0.75, Estim Creat Clear Calc 87.75, Est GFR (MDRD) Af Amer 105, Est GFR (MDRD) Non-Af 87, BUN/CreatinineRatio 12.0, Glucose 101, Calcium 7.9 L, Total Bilirubin 1.30 H, Direct Bilirubin0.70 H, AST 53 H, ALT 36, Alkaline Phosphatase 123 H, Total Protein 6.7, Albumin2.2 L, Globulin 4.5 H Microbiology: Microbiology 12/05/23 Unknown Fluid - Ascites Gram Stain - Final 12/05/23 Unknown Fluid - Ascites Anaerobic Culture - Preliminary No growth in 48 hours. D/C Instructions Discharge Diet: Soft diet (Low residue with no fatty or oily food), Low fat / Low cholesterol and 8 Cup Fluid Restriction Weight Bearing Status: Weight bearing as tolerated Call your doctor if you observe: Fever of 101 or Higher, Coldness, Increased Pain, Numbness or Tingling, Change in Color, Inability to urinate, Inability to have a bowel movement, Using more than 1 pad per hour, Shortness of breath, Dizziness, Fainting spells, Swelling in the ankles, Chest pain, Prolonged hiccupping, Increased palpitations (irregular heartbeat) and Calf discomfort When: IN 2 WEEKS Meaningful Use Info Meaningful Use Diagnoses (Choose all that apply): None applicable Discharge Plan Admission Admit Date/Time: 12/04/23 20:34 Primary Reason for Your Visit: Decompensated cirrhosis with ascites. SBP ruled out. Attending Provider: Son Adams Primary Care Provider: Dacia Acosta Consulting Providers: Sowmya Mirza; Ricardo Pollack Instructions Additional Instructions / Restrictions: Advised [id number] probiotic 1 tablet twice daily. Small frequent diet with low residue. Discharge Orders/Prescriptions Prescriptions: New furosemide 40 mg tablet 40 mg PO DAILY 30 Days Qty: 30 3RF spironolactone 100 mg tablet 100 mg PO DAILY 30 Days Qty: 30 3RF Rx Instructions: Hold if serum potassium more than 5.0. nicotine 21 mg/24 hr Patch 24 Hour 21 mg transdermal DAILY 28 Days Qty: 28 0RF dicyclomine 10 mg Capsule 10 mg PO 0730,1130,1630,2200 PRN (Reason: abdominal cramps) 30 Days Qty: 120 2RF pantoprazole [Protonix] 40 mg tablet,delayed release (DR/EC) 40 mg PO BID 30 Days Qty: 60 1RF midodrine 10 mg tablet 10 mg PO TID 30 Days Qty: 90 2RF Rx Instructions: do not give last dose of day after 6PM or within 4 hrs of bedtime Hold if SBP more than 110 mmHg Continued Vitamin D3 1,250 mcg OTHER QWEEK Rx Instructions: TAKES ON MODAY BY MOUTH lactulose 20 gram/30 mL solution 20 g PO TID 30 Days Qty: 2880 2RF Rx Instructions: And adjust the frequency to have him goal of 3 bowel movements per day gabapentin 100 mg capsule 100 mg PO Q12H Patient Comments: Take 1 capsule by mouth twice daily pt taking as needed. albuterol sulfate [Ventolin HFA] 90 mcg/actuation HFA aerosol inhaler 2 puff inhalation Q4H PRN PRN (Reason: shortness of breath or wheezing) ferrous sulfate [FeroSul] 325 mg (65 mg iron) tablet 325 mg PO DAILY ascorbate calcium (vitamin C) 500 mg tablet 500 mg PO DAILY Changed spironolactone 50 mg tablet 30 mg PO DAILY Qty: 45 2RF Discontinued furosemide [Lasix] 20 mg tablet 20 mg PO DAILY Qty: 90 0RF Referrals / Follow Up: Renae Ludwig [Other] - 04/11/24 8:00 am Dacia Acosta MD [Primary Care Provider] - 12/08/23 11:00 am (appointment is with Alba Lowe N.P. Please arrive by 10:45.) Ricardo Pollack DPM [Med Staff - Active Staff] - 12/14/23 10:30 am (Bring insurance info to appointment and paperwork from Dr. Pollack office.) Son Adams MD [Med Staff - Active Staff] - Within 1 Month Disposition Disposition (needs filled in before D/C Order can be placed): Home, Self Care Charges/Coding Visit Charges Inpatient E&M: 58742 Disch Hosp >30min 12/07/23 1439 <Electronically signed by Son Adams MD> Cosigner Signature (if applicable): CC: Dr. Dacia Acosta MD; Dr. Son Adams MD~ Signed [facility] Work Phone: [phone]) 746-679303-13-2024 Discharge summary Author Son Adams [facility] December 07, 2023 2:37pm Note Date/Time December 07, 2023 2:[address] [facility] Medical Records Department [address] [place] [address] Instructions for Home/Discharge Instructions 12/07/23 0720 MR#: [id number] Acct: [id number] Name: CAROLINA HIGHTOWER Rep #:[id number] : 1975 48 From: Son Connelly PCP: Dr. Dacia Acosta MD Status:AD M IN Discharge Instructions Diet Discharge Diet: Soft diet (Low residue with no fatty or oily food), Low fat / Low cholesterol and 8 Cup Fluid Restriction Activity Weight Bearing Status: Weight bearing as tolerated Dressing / Incision Call your doctor if you observe: Fever of 101 or Higher, Coldness, Increased Pain, Numbness or Tingling, Change in Color, Inability to urinate, Inability to have a bowel movement, Using more than 1 pad per hour, Shortness of breath, Dizziness, Fainting spells, Swelling in the ankles, Chest pain, Prolonged hiccupping, Increased palpitations (irregular heartbeat) and Calf discomfort Follow Up Care Test Results: Test results from this visit will be discussed in further detail at your follow- up appointment, if applicable. Discharge Plan Admission Admit Date/Time: 12/04/23 20:34 Primary Reason for Your Visit: Decompensated cirrhosis with ascites. SBP ruled out. Attending Provider: Son Adams Primary Care Provider: Dacia Acosta Consulting Providers: Sowmya Mirza; Ricardo Pollack Discharge Orders/Prescriptions Prescriptions: New furosemide 40 mg tablet 40 mg PO DAILY 30 Days Qty: 30 3RF spironolactone 100 mg tablet 100 mg PO DAILY 30 Days Qty: 30 3RF Rx Instructions: Hold if serum potassium more than 5.0. nicotine 21 mg/24 hr Patch 24 Hour 21 mg transdermal DAILY 28 Days Qty: 28 0RF dicyclomine 10 mg Capsule 10 mg PO 0730,1130,1630,2200 PRN (Reason: abdominal cramps) 30 Days Qty: 120 2RF pantoprazole [Protonix] 40 mg tablet,delayed release (DR/EC) 40 mg PO BID 30 Days Qty: 60 1RF midodrine 10 mg tablet 10 mg PO TID 30 Days Qty: 90 2RF Rx Instructions: do not give last dose of day after 6PM or within 4 hrs of bedtime Hold if SBP more than 110 mmHg Continued Vitamin D3 1,250 mcg OTHER QWEEK Rx Instructions: TAKES ON MODAY BY MOUTH lactulose 20 gram/30 mL solution 20 g PO TID 30 Days Qty: 2880 2RF Rx Instructions: And adjust the frequency to have him goal of 3 bowel movements per day gabapentin 100 mg capsule 100 mg PO Q12H Patient Comments: Take 1 capsule by mouth twice daily pt taking as needed. albuterol sulfate [Ventolin HFA] 90 mcg/actuation HFA aerosol inhaler 2 puff inhalation Q4H PRN PRN (Reason: shortness of breath or wheezing) ferrous sulfate [FeroSul] 325 mg (65 mg iron) tablet 325 mg PO DAILY ascorbate calcium (vitamin C) 500 mg tablet 500 mg PO DAILY Changed spironolactone 50 mg tablet 30 mg PO DAILY Qty: 45 2RF Discontinued furosemide [Lasix] 20 mg tablet 20 mg PO DAILY Qty: 90 0RF Referrals / Follow Up: Renae Ludwig [Other] - 04/11/24 8:00 am Dacia Acosta MD [Primary Care Provider] - 12/08/23 11:00 am (appointment is with Alba Lowe N.P. Please arrive by 10:45.) Ricardo Pollack DPM [Med Staff - Active Staff] - 12/14/23 10:30 am (Bring insurance info to appointment and paperwork from Dr. Pollack office.) Son Adams MD [Med Staff - Active Staff] - Within 1 Month Disposition Disposition (needs filled in before D/C Order can be placed): Home, Self Care 12/07/23 4847<Electronically signed by Son Adams MD>Son Adams MD CC: PREMA Pollack; Dr. Sowmya Miraz MD; Dr. Dacia Acosta MD ~ Signed [facility] Work Phone: [phone]) 206-858303-13-2024 NoteHNO ID: [id number] Author: PRISCILLA DEL ANGEL RN Service: ? Author Type: Registered Nurse Type: Progress Notes Filed: 12/07/2023 14:51 Note Text: TRANSITION CARE MANAGEMENT (TCM) FOLLOW-UP NOTE Provider Action/FYI: Spoke to patient. States she was admitted to [facility] Tuesday. (12/04/23) Pt states she was admitted for cirrhosis Apologized to the patient. Telephone outreach ended. Patient identified by name and date of : YES Spoke to patient Discharge Network Status: In-Network Discharge Concerns: Pt is currently admitted at [facility] Cert[facility] Pathology Assistant plan for next outreach: No further follow up needed at this time YANELI Education Ordered -: No Signature Priscilla Del Angel RN [facility] 06[facility] History of Present illness Narrative* Priscilla Del Angel RN - 12/07/2023 2:47 PM EDT TRANSITION CARE MANAGEMENT (TCM) FOLLOW-UP NOTE Provider Action/FYI: Spoke to patient. States she was admitted to [facility] Tuesday. (12/04/23) Pt states she was admitted for cirrhosis Apologized to the patient. Telephone outreach ended. Patient identified by name and date of : YES Spoke to patient Discharge Network Status: In-Network Discharge Concerns: Pt is currently admitted at [facility] [place] [facility]ified Pathology Assistant plan for next outreach: No further follow up needed at this time YANELI Education Ordered -: No Signature Priscilla Del Angel RN December 07, 2023 [facility] Consult note Author Ricardo Pollack [facility] December 07, 2023 8:01am Note Date/Time December 07, 2023 7:4 9am [facility] Medical Records Department [address] [place] [address] Consultation 12/07/23 0748 MR#: [id number] Acct: [id number] Name: CAROLINA HIGHTOWER Rep #:[id number] : 1975 48 From: Ricardo luciano DPM PCP: Dr. Dacia Acosta MD Status:AD M IN [facility] Assessment & Plan Assessment/Plan (1) Iron deficiency anemia: QUALIFIERS: Iron deficiency anemia type: chronic blood loss Qualified Code(s): D50.0 - Iron deficiency anemia secondary to blood loss (chronic) (2) Hepatitis C, chronic: QUALIFIERS: Hepatic coma status: without hepatic coma Qualified Code(s): B18.2 - Chronic viral hepatitis C (3) Cirrhosis of liver: QUALIFIERS: Hepatic cirrhosis type: unspecified hepatic cirrhosis Ascites presence: with ascites Qualified Code(s): K74.60 - Unspecified cirrhosis of liver; R18.8 - Other ascites (4) Chronic pain of toe of right foot: (5) Tinea unguium: (6) Nail dystrophy: PLAN: Plan Patient seen and evaluated Patient was consulted to podiatry for possible ingrown toenail. There is no signs of ingrown toenail on examination. There is no infection of the right hallux nail or bilateral lower extremity. On examination the right hallux nail is thickened, discolored, dystrophic with some subungual debris's and onycholysis. Nail is painful to direct dorsal pressure secondary to overall thickness of the nail. Nail does appear to have some evidence of previous traumas leading to nail thickness. Right hallux nail was debrided in length utilizing a nail nipper. Medicine currently following for medical management Gastrointestinal physician following Discussed with patient to keep nails trimmed as overall length does contribute to her pain. And wear proper fitting shoe gear Podiatry to sign off Ricardo Pollack Jr. D.P.M. [facility] [phone] HPI Consult Data Date of Consult: 12/07/23 HPI Narrative Reason for Consultation: Possible ingrown toenail right hallux HPI Narrative: CAROLINA HIGHTOWER, is a 48 F who presents to [facility] on 12/04/2023 with complaint of abdominal pain and dysuria. She has PMHx age of obesity, chronic anemia/iron deficient anemia, depression and anxiety, chronic hepatitis C with cirrhosis, history of polysubstance abuse, tobacco use. She states that her abdominal pain had worsened over the weekend with difficulty urinating. Denies fever, vomiting, chills. She was consulted to podiatry for a possible ingrown toenail of the right hallux. Patient does state hallux does have pain but denies toenail being ingrown and states pain is only from nail being thick and long. PFSH Medical History Alcohol abuse Anemia Anxiety and depression Chronic pain Cirrhosis of liver COPD (chronic obstructive pulmonary disease) Gastric reflux GERD (gastroesophageal reflux disease) Hepatitis History of diverticulitis History of renal disease Hyperbilirubinemia Kidney stones Low iron Marijuana use Migraine headache MRSA infection Obesity Open wound Polysubstance abuse Restless legs Seizures Sleep apnea Smoker Substance abuse Thrombocytopenia Tobacco use Home Medications Vitamin D3 1,250 mcg OTHER QWEEK SUPPLEMENT 05/20/22 [History Last Taken Unknown] gabapentin 100 mg capsule 100 mg PO Q12H 07/20/23 [History Last Taken Unknown] lactulose 20 gram/30 mL oral solution 20 g (30 mL) PO TID 30 days #2,880 mL 10/07/23 [Rx Last Taken Unknown] albuterol sulfate 90 mcg/actuation aerosol inhaler (Ventolin HFA) 2 puff inhalation Q4H PRN PRN shortness of breath or wheezing 12/04/23 [History Last Taken Unknown] ascorbate calcium (vitamin C) 500 mg tablet 500 mg PO DAILY 12/04/23 [History Last Taken Unknown] ferrous sulfate 325 mg (65 mg iron) tablet (FeroSul) 325 mg PO DAILY 12/04/23 [History Last Taken Unknown] furosemide 40 mg tablet 40 mg PO DAILY 1 month #30 tabs 12/06/23 [Rx Last Taken Unknown] nicotine 21 mg/24 hr daily transdermal patch 1 patch transdermal DAILY 28 days #28 ea 12/06/23 [Rx Last Taken Unknown] spironolactone 100 mg tablet 100 mg PO DAILY 1 month #30 tabs 12/06/23 [Rx Last Taken Unknown] spironolactone 50 mg tablet 30 mg (0.6 x 50 mg) PO DAILY #45 tabs 12/06/23 [Rx Last Taken Unknown] Allergy/AdvReac Type Severity Reaction Status Date / Time bupropion HCl Allergy SEIZURES Verified 12/04/23 16:48 [From Wellbutrin] codeine Allergy Rash Verified 12/04/23 16:48 Family History Mother Diabetes Father Cancer HX Throat CA. Surgical History H/O tubal ligation History of liver biopsy Social History (Updated 12/04/23 @ 21:[address] Sowmya Mirza MD) adopted: No household members: family housing: other number of children: 3 current occupational status: unemployed pets and animals: Yes history of recent travel: No sexually active: Yes Smoking Status: Current every day smoker tobacco type: cigarettes Smoking packsper day: 1 Smoking cigarettes per day: 20.0 second hand exposure: Yes alcohol intake: current alcohol intake frequency: a few times a month substance use type: former substance user Date of last use: heroin, marijuana, heroin and methamphetamine seatbelt use: always do you feel safe at home: Yes ROS Constitutional Constitutional: Denies anorexia, chills or fever(s) Eyes Eyes: Denies blurry vision, diplopia or loss of vision ENT HEENT: Denies dysphagia, nasal congestion or sore throat Cardiovascular Cardiovascular: Denies chest pain, claudication or palpitations Respiratory/Chest Respiratory/Chest: Denies chest congestion, cough, dyspnea or wheezing Gastrointestinal Gastrointestinal: Reports abdominal pain; Denies constipation, diarrhea, nausea or vomiting Genitourinary Genitourinary: Denies dysuria, hematuria, urinary frequency or urinary urgency Musculoskeletal Musculoskeletal: Denies joint pain, joint stiffness or joint swelling Integumentary Integumentary: Denies lesions, pruritus or rash Neurologic Neurologic: Denies dizziness, numbness or seizures Psychiatric Psychiatric: Reports anxiety and depression Endocrine Endocrinology: Denies cold intolerance, heat intolerance, polydipsia or polyphagia Hematologic/Lymphatic Hematologic/Lymphatic: Denies easy bleeding or easy bruising Allergic/Immunologic Allergic/Immunologic: Denies wheezing Physical Exam Const alert, oriented x3 and no apparent distress General Appearance: cooperative HEENT normocephalic Neck General: normal visual inspection Lymph Lymphatic: no lymphadenopathy noted and no lymphedema noted Resp normal respiratory effort Cardio regular rate and regular rhythm Extremity normal to inspection, normal capillary refill, no joint enlargement and no calf tenderness Extremity Narrative: Vascular: DP and PT pulses palpable to bilateral lower extremity. Capillary fill time is adequate to digits of both feet. Normal temperature gradient bilateral. Hair growth is present to digits bilateral. Neurologic: Motor function intact bilateral. No focal sensory deficits bilateral. Epicritic sensation intact bilateral. Dermatological: Skin well-hydrated without rash or lesion bilateral. Nails 1 through 5 bilateral are intact and maintained with the exception of right halluxnail which is thickened, discolored, dystrophic. There is some onycholysis of the right hallux nail with some subungual debris. There is some pain to palpation with direct dorsal pressure of this nail. No evidence of ingrown toenail. No signs of infection. Musculoskeletal: Muscle strength 5 of 5 age-appropriate. Range of motion full, smooth, pain-free to ankle joint, subtalar joint, midtarsal joint, and first metatarsophalangeal joint bilateral. Skin no rashes or lesions noted, skin turgor normal and no jaundice Neuro moves all extremities Lab / Micro Data 12/07/23 07:10 12/06/23 08:36 Labs: Laboratory Results - last 24 hr 12/05/23 08:50: Fluid Albumin 0.7, Fluid Amylase 13 12/05/23 : Fluid Source OTHER 12/06/23 08:36: WBC 5.6, RBC 3.27 L, Hgb 8.0 L, Hct 26.5 L, MCV 81.0, MCH 24.5 L, MCHC 30.2 L, RDW Std Deviation 75.8 H, RDW Coeff of Katalina 26.1 H, Plt Count 63 L, MPV 9.8, Immature Gran % (Auto) 0.400, Neut % (Auto) 48.6, Lymph % (Auto) 32.1, Coos % (Auto) 14.6 H, Eos % (Auto) 3.4, Baso % (Auto) 0.9, Absolute Neuts (auto) 2.7, Absolute Lymphs (auto) 1.78, Nucleated RBC % 0, PT 20.5 H, INR 1.8, Sodium 140, Potassium 3.8, Chloride 110 H, Carbon Dioxide 25.0, Anion Gap 5, BUN10, Creatinine 0.80, Estim Creat Clear Calc 83.33, Est GFR (MDRD) Af Amer 98, Est GFR (MDRD) Non-Af 81, BUN/Creatinine Ratio 12.5, Glucose 95, Calcium 8.1 L, Total Bilirubin 1.30 H, Direct Bilirubin 0.69 H, AST 59 H, ALT 40, Alkaline Phosphatase 137 H, Total Protein 6.8, Albumin 2.3 L, Globulin 4.5 H 12/07/23 07:10: WBC 5.3, RBC 3.45 L, Hgb 8.4 L, Hct 27.9 L, MCV 80.9 L, MCH 24.3L, MCHC 30.1 L, RDW Std Deviation 75.2 H, RDW Coeff of Katalina 25.8 H, Plt Count 59 L, Immature Gran % (Auto) 0.400, Neut % (Auto) 47.4, Lymph % (Auto) 34.6, Coos %(Auto) 12.2 H, Eos % (Auto) 4.6, Baso % (Auto) 0.8, Absolute Neuts (auto) 2.5, Absolute Lymphs (auto) 1.82, Nucleated RBC % 0 12/07/23 0801 <Electronically signed by Ricardo Pollack DPM> Cosigner Signature (if applicable): CC: PREMA Pollack; Dr. Sowmya Mirza MD; Dr. Dacia Acosta MD~ Signed [facility] Work Phone: [phone] NotePatient Outreach ([facility] KATJACAROLINA ([id number]) 1975 F Date Time Provider Department 12/07/23 [facility] During your visit today, we recorded the following information about you: Priscilla Del Angel RN 12/07/2023 2:51 PM Signed TRANSITION CARE MANAGEMENT (TCM) FOLLOW-UP NOTE Provider Action/FYI: Spoke to patient. States she was admitted to [facility] Tuesday. (12/04/23) Pt states she was admitted for cirrhosis Apologized to the patient. Telephone outreach ended. Patient identified by name and date of : YES Spoke to patient Discharge Network Status: In-Network Discharge Concerns: Pt is currently admitted at [place] Certified Pathology Assistant plan for next outreach: No further follow up needed at this time YANELI Education Ordered -: No Signature Prisiclla Del Angel RN December 07, 2023 Allergies As of Date: 12/07/2023 Noted Allergy Reaction ASPIRIN 06/02/2005 Comments: UNCERTAIN =CHILDHOOD BUPROPION 06/11/2019 14 - Other: See Comments CODEINE 06/02/2005 2 - Rash PREDNISONE 06/19/2019 2 - Rash WELLBUTRIN (BUPROPION HCL) 09/29/2012 14 - Other: See Comments Comments: seizures Date Reviewed: 11/26/2023 Reviewed by: Bill Valenzuela Ma - Fully Assessed Prescriptions as of [...] daily for 180 days. - pantoprazole DR StreetPROTONIX) 40 mg tablet Take 1 tablet by [...] F17.2 [F17.200] 11/20/2023 Encounter Status:Closed by PRISCILLA DEL ANGEL on 12/07/23[facility]03-12-2024 Progress note Author Son Adams [facility] December 06, 2023 4:40pm Note Date/Time December 06, 2023 4:4 0pm [facility] Medical Records Department [facility] [place] [address] Progress Note - Hospitalist 12/06/23 1636 MR#: [id number] Acct: [id number] Name: CAROLINA HIGHTOWER Rep #:[id number] : 1975 48 From: Son Connelly PCP: Dr. Dacia Acosta MD Status:AD M IN Location: [place] [address] Reason for Visit Reason for Visit: Diagnoses Alcoholic hepatitis with ascites (12/04/23) Unspecified cirrhosis of liver (12/04/23) Other ascites (12/04/23) Objective Data Objective Data Vital Signs: Vital Signs Temp Pulse Resp BP Pulse Ox O2 Del Method 97.5 F L 79 16 116/72 96 Room Air 12/06/23 14:50 12/06/23 14:50 12/06/23 14:50 12/06/23 14:50 12/06/23 14:50 12/06/23 14:50 Oxygen Delivery Method Room Air Weight: 180 lb 1.883 oz Body Mass Index (BMI) 32.9 Intake & Output: Intake and Output for Last 24 Hours 12/04/23 12/05/23 12/06/23 23:59 23:59 23:59 Intake Total 599 / 599 800 / 800 Output Total 3200 / 3200 Balance -2601 / -2601 800 / 800 Lab / Micro Data 12/06/23 08:36 12/06/23 08:36 Labs: Laboratory Results - last 24 hr 12/05/23 08:50: Fluid Albumin 0.7, Fluid Amylase 13 12/05/23 : Fluid Source OTHER 12/06/23 08:36: WBC 5.6, RBC 3.27 L, Hgb 8.0 L, Hct 26.5 L, MCV 81.0, MCH 24.5 L, MCHC 30.2 L, RDW Std Deviation 75.8 H, RDW Coeff of Katalina 26.1 H, Plt Count 63 L, MPV 9.8, Immature Gran % (Auto) 0.400, Neut % (Auto) 48.6, Lymph % (Auto) 32.1, Coos % (Auto) 14.6 H, Eos % (Auto) 3.4, Baso % (Auto) 0.9, Absolute Neuts (auto) 2.7, Absolute Lymphs (auto) 1.78, Nucleated RBC % 0, PT 20.5 H, INR 1.8, Sodium 140, Potassium 3.8, Chloride 110 H, Carbon Dioxide 25.0, Anion Gap 5, BUN10, Creatinine 0.80, Estim Creat Clear Calc 83.33, Est GFR (MDRD) Af Amer 98, Est GFR (MDRD) Non-Af 81, BUN/Creatinine Ratio 12.5, Glucose 95, Calcium 8.1 L, Total Bilirubin 1.30 H, Direct Bilirubin 0.69 H, AST 59 H, ALT 40, Alkaline Phosphatase 137 H, Total Protein 6.8, Albumin 2.3 L, Globulin 4.5 H Micro: Microbiology 12/05/23 Unknown Fluid - Ascites Gram Stain - Final Physical Exam Narrative Seen and examined. Patient again complained of abdominal pain mainly upper after eating food. Since patient might have pain from stomach stretch/distention. Discharge canceled. Bentyl ordered. Patient crying. She had paracentesis yesterday. Physical exam General: Alert, Oriented x3, Cooperative, obesity grade 2 BMI 33.5 kg/m? HEENT: Atraumatic, PERRLA, EOMI, Normocephalic Oral: No Gingival or Mucosal Lesions/ Ulcerations Neck: Supple, No JVD, Negative Carotid Bruits Chest wall/Lungs: Air entry diminished in bilateral lung bases. No crepitation/rhonchi Cardiovascular: Regular rate, Regular Rhythm, Normal S1, Normal S2, No M/G/R Abdomen: Bowel Sounds Present, still has mild ascites. Abdomen is soft. No significant tenderness/rebound tenderness. : No dysuria. No renal angle tenderness. No suprapubic tenderness. Extremities: No edema, Capillary Refill Less than 3 Seconds Skin: No rashes, No breakdown Musculoskeletal: Ingrown toenail. No Tenderness to Palpation of Joints or Extremities Neurological: Cranial nerves II-XII grossly intact, DTR 2+/4. No acute focal neurological deficit. Psych/Mental Status: Flat affect. Assessment & Plan Assessment/Plan (1) Cirrhosis of liver: QUALIFIERS: Hepatic cirrhosis type: unspecified hepatic cirrhosis Ascites presence: with ascites Qualified Code(s): K74.60 - Unspecified cirrhosis of liver; R18.8 - Other ascites (2) Ascites: QUALIFIERS: Ascites type: due to alcoholic hepatitis Qualified Code(s): K70.11 - Alcoholic hepatitis with ascites PLAN: Plan The patient is a 48 y/o F came to ED with generalized abdominal pain and nausea for the last 2 days. Patient also has dysuria for past several days and was puton Macrobid a week ago by PCP but patient not taking it because of fear that might make her abdominal pain worse. Patient is not adherent with regimen of lactulose she is confused. Denies fever or chills. #1. Worsening ascites with history of chronic decompensated hep C cirrhosis requiring multiple recurrent paracentesis, hepatic encephalopathy, thrombocytopenia and esophageal varices suggestive of portal hypertension: Patient is abdominal discomfort. Patient admitted to PCU. Patient went for paracentesis. Ultrasound called to send the fluid for analysis to calculate SAAG. Chronic thrombocytopenia due to decompensated cirrhosis. She ranges anywhere between 50,000-80,000. Nonadherent to lactulose. Continue IV ceftriaxone. Patient had 3200 mL clear fluid drained. 25 g IV albumin ordered. 3: Patient is alert and awake. Her abdominal pain has resolved. Paracentesis fluid reviewed. Cell count not consistent with SBP therefore ruledout. Fluid culture Gram stain no organism. Patient does not need antibiotic. 12/05 about 4 PM: Complain of abdominal pain discharge is canceled because of abdominal pain. Seems mainly from stomach distention. Bentyl ordered. Diet changed to soft bite sized easily chewable food. #2. Abnormal UA, UTI ruled out.: UA upon ED evaluation remarkable for nitrite and LE +500. WBC 25-50 cells, Urine culture pending. Empirically patient started on IV ceftriaxone. 3: Urine culture no growth. UTI ruled out. Does not need antibiotic. #3. Chronic COPD: Will hold all home inhalers in the interim placed on ATC budesonide therapy, PRN albuterol, HOB, IS parameters. #4. Incidental nonobstructive right renal stones: CT abdomen pelvis with nonobstructive right renal stones measuring up to 10 mm. #5. History of polysubstance abuse: Patient with prior history of IV drug abusewith last usage approximately 7 years prior to current presentation with previous heroin, methamphetamine, cannabis usage, UDS requested. = #6. Anxiety and depression: Per current list on a regimen, clarifying as patient in the past had been on a significant regimen including duloxetine, desvenlafaxine, aripiprazole home regimen. Given patient's significant displeasure with her ongoing health issues would be imperative to potentially restart medications as well as outpatient counseling. Case management consulted. #7. Chronic normocytic anemia/iron deficiency anemia: Admission hemoglobin 8.9,MCV 82.1, Baseline hemoglobin runs between 9 to 10 g. #8. Other multiple comorbidities include obesity grade 3 mainly fluid weight, GERD, obstructive sleep apnea on CPAP and chronic tobacco use/smoking. Patient had left toe ingrown nail and fungal infection. Podiatry consult requested. Patient can go home to see the collect on delivery clerk. CODE status: Patient does not have healthcare power of title attorney nor living will. Full Code status. Discharge medication reconciliation done. Discharge follow-up instructions completed. Discharge process discussed with the patient and all questions wereanswered to patient's satisfaction. Follow with PCP in 1 to 2 weeks Total time spent, exact 35 minutes on discharge meds reconciliation, examination, coordination of care with nurses and ancillary staff, review of imaging and blood test and discussion with the patient on follow-up instructions. Charges/Coding Visit Charges Inpatient E&M: 53775 Subs Hosp L2 12/06/23 1640 <Electronically signed by Son Adams MD> Cosigner Signature (if applicable): CC: ~ Signed [facility] Work Phone: 1(118) 603-681003-12-2024 Progress note Author Marcelina Porras [facility] December 06, 2023 4:28pm Note Date/Time December 06, 2023 4:[address] [facility] Medical Records Department [address] [place] [address] Progress Note - GI 12/06/23 0627 MR#: [id number] Acct: [id number] Name: CAROLINA HIGHTOWER Rep #:[id number] : 1975 48 From: Marcelina Porras DO PCP: Dr. Dacia Acosta MD Status:AD M IN Location: [place] [address]- Subjective Subjective Patient feels a lot better after undergoing large-volume paracentesis. There was no sign of SBP in the paracentesis fluid. Objective Data Objective Data Vital Signs: Vital Signs Temp Pulse Resp BP Pulse Ox O2 Del Method 97.5 F L 79 16 116/72 96 Room Air 12/06/23 14:50 12/06/23 14:50 12/06/23 14:50 12/06/23 14:50 12/06/23 14:50 12/06/23 14:50 Oxygen Delivery Method Room Air Weight: 180 lb 1.883 oz Body Mass Index (BMI) 32.9 Intake & Output: Intake and Output for Last 24 Hours 12/04/23 12/05/23 12/06/23 23:59 23:59 23:59 Intake Total 599 / 599 800 / 800 Output Total 3200 / 3200 Balance -2601 / -2601 800 / 800 Lab / Micro Data 12/06/23 08:36 12/06/23 08:36 Labs: Laboratory Results - last 24 hr 12/05/23 08:50: Fluid Albumin 0.7, Fluid Amylase 13 12/05/23 : Fluid Source OTHER 12/06/23 08:36: WBC 5.6, RBC 3.27 L, Hgb 8.0 L, Hct 26.5 L, MCV 81.0, MCH 24.5 L, MCHC 30.2 L, RDW Std Deviation 75.8 H, RDW Coeff of Katalina 26.1 H, Plt Count 63 L, MPV 9.8, Immature Gran % (Auto) 0.400, Neut % (Auto) 48.6, Lymph % (Auto) 32.1, Coos % (Auto) 14.6 H, Eos % (Auto) 3.4, Baso % (Auto) 0.9, Absolute Neuts (auto) 2.7, Absolute Lymphs (auto) 1.78, Nucleated RBC % 0, PT 20.5 H, INR 1.8, Sodium 140, Potassium 3.8, Chloride 110 H, Carbon Dioxide 25.0, Anion Gap 5, BUN10, Creatinine 0.80, Estim Creat Clear Calc 83.33, Est GFR (MDRD) Af Amer 98, Est GFR (MDRD) Non-Af 81, BUN/Creatinine Ratio 12.5, Glucose 95, Calcium 8.1 L, Total Bilirubin 1.30 H, Direct Bilirubin 0.69 H, AST 59 H, ALT 40, Alkaline Phosphatase 137 H, Total Protein 6.8, Albumin 2.3 L, Globulin 4.5 H Micro: Microbiology 12/05/23 Unknown Fluid - Ascites Gram Stain - Final Physical Exam Narrative Physical Examination: General: Awake, alert, oriented x 3 and cooperative, laying on her side in the ED, notes ongoing vague discomfort to the abdomen. Skin: Normal color, normal turgor, no icterus, no cyanosis except occasional staged ecchymoses. HEENT: AT/NC, EOMI, PERRLA, mildly dry MM, lack of dentition, no carotid bruits or JVD noted. Lungs: CTA bilaterally, moderate effort, mild decrease BL bases, no rales, ronchi or wheezing. Heart: Regular rate and rhythm; no gallop, rub audible. Abdomen: Soft, mild generalized discomfort but no rebound or guarding, mildly distended but not tense with reaccumulation of ascites noted, mildly hyperactiveBS, given ascites reaccumulation difficult to appreciate HM. Extremities: No cyanosis, no clubbing, no marked significant peripheral edema but she has in the past. Neurological: Patient awake, alert, oriented as noted, cognitive function currently baseline intact; pupils equally reactive to light and accommodation, cranial nerves II-XII grossly normal, moving all 4 extremities, no focal deficits, strength mildly to moderately globally decreased secondary to acute complaints. Psychiatric: Affect appears uncomfortable, reports being fed up with her ongoinghealth issues, does admit to being depressed but denies suicidal ideation. Assessment & Plan Assessment/Plan (1) Cirrhosis of liver: QUALIFIERS: Hepatic cirrhosis type: unspecified hepatic cirrhosis Ascites presence: with ascites Qualified Code(s): K74.60 - Unspecified cirrhosis of liver; R18.8 - Other ascites PLAN: Plan The patient is a 48 y/o F came to ED with generalized abdominal pain and nausea for the last 2 days. Patient also has dysuria for past several days and was puton Macrobid a week ago by PCP but patient not taking it because of fear that might make her abdominal pain worse. Patient is not adherent with regimen of lactulose she is confused. Denies fever or chills. Worsening ascites with history of chronic decompensated hep C cirrhosis requiring multiple recurrent paracentesis, hepatic encephalopathy, thrombocytopenia and esophageal varices suggestive of portal hypertension: Patient is abdominal discomfort. Patient admitted to PCU. Patient went for paracentesis. Ultrasound called to send the fluid for analysis to calculate SAAG. Chronic thrombocytopenia due to decompensated cirrhosis. She ranges anywhere between 50,000-80,000. Nonadherent to lactulose. Continue IV ceftriaxone. Patient had 3200 mL clear fluid drained. 25 g IV albumin ordered. Charges/Coding Visit Charges Inpatient E&M: 62141 Subs Hosp L3 12/06/23 1628 <Electronically signed by Marcelina Friend DO> Cosigner Signature (if applicable): CC: ~ Signed [facility] Work Phone: 1(437) 323-612503-12-2024 Discharge summary Author Son Adams [facility] December 06, 2023 11:11am Note Date/Time December 06, 2023 11: 09am [facility] Medical Records Department [address] [place] [address] Discharge Summary 12/06/23 1109 MR#: [id number] Acct: [id number] Name: CAROLINA HIGHTOWER Rep #:[id number] : 1975 48 From: Son Connelly PCP: Dr. Dacia Acosta MD Status:AD M IN Location: [place] [address] 1 Providers Date of Admission: 12/04/23 Primary Care Physician: Dr. Dacia Acosta MD Consultations 12/05/23 18:08 Consult: Podiatry Routine Consulting Provider: Ricardo Pollack Reason for Consult: RIGHT ingrown toe nal with infection? EMERGENT Consult: No MD Notified: Yes Date Notified: 12/05/23 Time Notified: 18:08 Method of Notification: Text Reason For Visit: DECOMPENSATED CIRRHOSIS, UTI Diagnosis Discharge Diagnosis (1) Cirrhosis of liver: Status: Acute Code(s): K74.60 - Unspecified cirrhosis of liver Qualifiers: Hepatic cirrhosis type: unspecified hepatic cirrhosis Ascites presence:with ascites Qualified Code(s): K74.60 - Unspecified cirrhosis of liver; R18.8 - Other ascites (2) Ascites: Status: Resolved Code(s): R18.8 - Other ascites Qualifiers: Ascites type: due to alcoholic hepatitis Qualified Code(s): K70.11 - Alcoholic hepatitis with ascites Plan The patient is a 48 y/o F came to ED with generalized abdominal pain and nausea for the last 2 days. Patient also has dysuria for past several days and was puton Macrobid a week ago by PCP but patient not taking it because of fear that might make her abdominal pain worse. Patient is not adherent with regimen of lactulose she is confused. Denies fever or chills. #1. Worsening ascites with history of chronic decompensated hep C cirrhosis requiring multiple recurrent paracentesis, hepatic encephalopathy, thrombocytopenia and esophageal varices suggestive of portal hypertension: Patient is abdominal discomfort. Patient admitted to PCU. Patient went for paracentesis. Ultrasound called to send the fluid for analysis to calculate SAAG. Chronic thrombocytopenia due to decompensated cirrhosis. She ranges anywhere between 50,000-80,000. Nonadherent to lactulose. Continue IV ceftriaxone. Patient had 3200 mL clear fluid drained. 25 g IV albumin ordered. 3: Patient is alert and awake. Her abdominal pain has resolved. Paracentesis fluid reviewed. Cell count not consistent with SBP therefore ruledout. Fluid culture Gram stain no organism. Patient does not need antibiotic. Prescription sent for diuretic, furosemide increased to 40 mg daily and spironolactone 100 mg daily. Had nicotine patch prescription also sent. #2. Abnormal UA, UTI ruled out.: UA upon ED evaluation remarkable for nitrite and LE +500. WBC 25-50 cells, Urine culture pending. Empirically patient started on IV ceftriaxone. 12/05: Urine culture no growth. UTI ruled out. Does not need antibiotic. #3. Chronic COPD: Will hold all home inhalers in the interim placed on ATC budesonide therapy, PRN albuterol, HOB, IS parameters. #4. Incidental nonobstructive right renal stones: CT abdomen pelvis with nonobstructive right renal stones measuring up to 10 mm. #5. History of polysubstance abuse: Patient with prior history of IV drug abusewith last usage approximately 7 years prior to current presentation with previous heroin, methamphetamine, cannabis usage, UDS requested. = #6. Anxiety and depression: Per current list on a regimen, clarifying as patient in the past had been on a significant regimen including duloxetine, desvenlafaxine, aripiprazole home regimen. Given patient's significant displeasure with her ongoing health issues would be imperative to potentially restart medications as well as outpatient counseling. Case management consulted. #7. Chronic normocytic anemia/iron deficiency anemia: Admission hemoglobin 8.9,MCV 82.1, Baseline hemoglobin runs between 9 to 10 g. #8. Other multiple comorbidities include obesity grade 3 mainly fluid weight, GERD, obstructive sleep apnea on CPAP and chronic tobacco use/smoking. Patient had left toe ingrown nail and fungal infection. Podiatry consult requested. Patient can go home to see the collect on delivery clerk. CODE status: Patient does not have healthcare power of title attorney nor living will. Full Code status. Discharge medication reconciliation done. Discharge follow-up instructions completed. Discharge process discussed with the patient and all questions were answered to patient's satisfaction. Follow with PCP in 1 to 2 weeks Total time spent, exact 35 minutes on discharge meds reconciliation, examination, coordination of care with nurses and ancillary staff, review of imaging and blood test and discussion with the patient on follow-up instructions. Medications at Discharge Home Medications Vitamin D3 1,250 mcg OTHER QWEEK SUPPLEMENT 05/20/22 gabapentin 100 mg capsule 100 mg PO Q12H 07/20/23 lactulose 20 gram/30 mL oral solution 20 g (30 mL) PO TID 30 days #2,880 mL 10/07/23 albuterol sulfate 90 mcg/actuation aerosol inhaler (Ventolin HFA) 2 puff inhalation Q4H PRN PRN shortness of breath or wheezing 12/04/23 ascorbate calcium (vitamin C) 500 mg tablet 500 mg PO DAILY 12/04/23 ferrous sulfate 325 mg (65 mg iron) tablet (FeroSul) 325 mg PO DAILY 12/04/23 furosemide 40 mg tablet 40 mg PO DAILY 1 month #30 tabs 12/06/23 nicotine 21 mg/24 hr daily transdermal patch 1 patch transdermal DAILY 28 days #28 ea 12/06/23 spironolactone 100 mg tablet 100 mg PO DAILY 1 month #30 tabs 12/06/23 spironolactone 50 mg tablet 30 mg (0.6 x 50 mg) PO DAILY #45 tabs 12/06/23 Weight / BMI Weight Weight: 180 lb 1.883 oz Body Mass Index (BMI) 32.9 ABG / Lab / Microbiology Data 12/06/23 08:36 12/06/23 08:36 Laboratory: Laboratory Results - last 24 hr 12/05/23 : Fluid Source OTHER, Fluid Color LT YEL, Fluid Appearance CLEAR, FluidWBC 0.136, Fluid RBC 101, Fluid Tot Cell Count 0.189 H, Fld Polynuclear WBCs # 0.006, Fld Polynuclear WBCs % 4.4, Fluid Mononuclear WBCs 0.130, Fld MononuclearWBCs % 95.6, Fluid Lymphocytes 27, Fluid Macrophages 69, Fld Mesothelial Cells 4, Fl Pathologist Comment May follow, Fluid Comment 2 SEE COMMENT 12/06/23 08:36: WBC 5.6, RBC 3.27 L, Hgb 8.0 L, Hct 26.5 L, MCV 81.0, MCH 24.5 L, MCHC 30.2 L, RDW Std Deviation 75.8 H, RDW Coeff of Katalina 26.1 H, Plt Count 63 L, MPV 9.8, Immature Gran % (Auto) 0.400, Neut % (Auto) 48.6, Lymph % (Auto) 32.1, Coos % (Auto) 14.6 H, Eos % (Auto) 3.4, Baso % (Auto) 0.9, Absolute Neuts (auto) 2.7, Absolute Lymphs (auto) 1.78, Nucleated RBC % 0, PT 20.5 H, INR 1.8, Sodium 140, Potassium 3.8, Chloride 110 H, Carbon Dioxide 25.0, Anion Gap 5, BUN10, Creatinine 0.80, Estim Creat Clear Calc 83.33, Est GFR (MDRD) Af Amer 98, Est GFR (MDRD) Non-Af 81, BUN/Creatinine Ratio 12.5, Glucose 95, Calcium 8.1 L, Total Bilirubin 1.30 H, Direct Bilirubin 0.69 H, AST 59 H, ALT 40, Alkaline Phosphatase 137 H, Total Protein 6.8, Albumin 2.3 L, Globulin 4.5 H Microbiology: Microbiology 12/05/23 Unknown Fluid - Ascites Gram Stain - Final D/C Instructions Discharge Diet: 8 Cup Fluid Restriction and 2000 mg Sodium Diet Weight Bearing Status: Weight bearing as tolerated Call your doctor if you observe: Fever of 101 or Higher, Coldness, Increased Pain, Numbness or Tingling, Change in Color, Inability to urinate, Inability to have a bowel movement, Shortness of breath, Dizziness, Fainting spells, Swellingin the ankles, Chest pain, Prolonged hiccupping, Increased palpitations (irregular heartbeat) and Calf discomfort When: IN 2 WEEKS Meaningful Use Info Meaningful Use Diagnoses (Choose all that apply): None applicable Discharge Plan Admission Admit Date/Time: 12/04/23 20:34 Attending Provider: Son Adams Primary Care Provider: Dacia Acosta Consulting Providers: Sowmya Mirza; Ricardo Pollack Discharge Orders/Prescriptions Prescriptions: New furosemide 40 mg tablet 40 mg PO DAILY 30 Days Qty: 30 3RF spironolactone 100 mg tablet 100 mg PO DAILY 30 Days Qty: 30 3RF Rx Instructions: Hold if serum potassium more than 5.0. nicotine 21 mg/24 hr patch 24 hour 1 patch transdermal DAILY 28 Days Qty: 28 0RF Continued Vitamin D3 1,250 mcg OTHER QWEEK Rx Instructions: TAKES ON MODAY BY MOUTH lactulose 20 gram/30 mL solution 20 g PO TID 30 Days Qty: 2880 2RF Rx Instructions: And adjust the frequency to have him goal of 3 bowel movements per day gabapentin 100 mg capsule 100 mg PO Q12H Patient Comments: Take 1 capsule by mouth twice daily pt taking as needed. albuterol sulfate [Ventolin HFA] 90 mcg/actuation HFA aerosol inhaler 2 puff inhalation Q4H PRN PRN (Reason: shortness of breath or wheezing) ferrous sulfate [FeroSul] 325 mg (65 mg iron) tablet 325 mg PO DAILY ascorbate calcium (vitamin C) 500 mg tablet 500 mg PO DAILY Changed spironolactone 50 mg tablet 30 mg PO DAILY Qty: 45 2RF Discontinued furosemide [Lasix] 20 mg tablet 20 mg PO DAILY Qty: 90 0RF Referrals / Follow Up: Renae Ludwig [Other] - 04/11/24 8:00 am Dacia Acosta MD [Primary Care Provider] - Within 1 Week Ricardo Pollack DPM [Med Staff - Active Staff] - Within 2 Weeks Son Adams MD [Med Staff - Active Staff] - Within 1 Month Disposition Disposition (needs filled in before D/C Order can be placed): Home, Self Care Charges/Coding Visit Charges Inpatient E&M: 74699 Disch Hosp >30min 12/06/23 1111 <Electronically signed by Son Adams MD> Cosigner Signature (if applicable): CC: Dr. Dacia Acosta MD; Dr. Son Adams MD~ Signed [facility] Work Phone: 1(560) 988-512603-12-2024 Discharge summary Author Son Adams [facility] December 06, 2023 11:09am Note Date/Time December 06, 2023 7:5 1am [facility] Medical Records Department [address] [place] [address] Instructions for Home/Discharge Instructions 12/06/23 0749 MR#: [id number] Acct: [id number] Name: CAROLINA HIGHTOWER Rep #:[id number] : 1975 48 From: Son Connelly PCP: Dr. Dacia Acosta MD Status:AD M IN Discharge Instructions Diet Discharge Diet: 8 Cup Fluid Restriction and 2000 mg Sodium Diet Activity Discharge Activity: Return to Normal Activity Weight Bearing Status: Weight bearing as tolerated Dressing / Incision Call your doctor if you observe: Fever of 101 or Higher, Coldness, Increased Pain, Numbness or Tingling, Change in Color, Inability to urinate, Inability to have a bowel movement, Shortness of breath, Dizziness, Fainting spells, Swellingin the ankles, Chest pain, Prolonged hiccupping, Increased palpitations (irregular heartbeat) and Calf discomfort Follow Up Care When: IN 2 WEEKS Test Results: Test results from this visit will be discussed in further detail at your follow- up appointment, if applicable. Discharge Plan Admission Admit Date/Time: 12/04/23 20:34 Attending Provider: Son Adams Primary Care Provider: Dacia Acosta Consulting Providers: Sowmya Mirza; Ricardo Pollack Discharge Orders/Prescriptions Prescriptions: New furosemide 40 mg tablet 40 mg PO DAILY 30 Days Qty: 30 3RF spironolactone 100 mg tablet 100 mg PO DAILY 30 Days Qty: 30 3RF Rx Instructions: Hold if serum potassium more than 5.0. nicotine 21 mg/24 hr patch 24 hour 1 patch transdermal DAILY 28 Days Qty: 28 0RF Continued Vitamin D3 1,250 mcg OTHER QWEEK Rx Instructions: TAKES ON MODAY BY MOUTH lactulose 20 gram/30 mL solution 20 g PO TID 30 Days Qty: 2880 2RF Rx Instructions: And adjust the frequency to have him goal of 3 bowel movements per day gabapentin 100 mg capsule 100 mg PO Q12H Patient Comments: Take 1 capsule by mouth twice daily pt taking as needed. albuterol sulfate [Ventolin HFA] 90 mcg/actuation HFA aerosol inhaler 2 puff inhalation Q4H PRN PRN (Reason: shortness of breath or wheezing) ferrous sulfate [FeroSul] 325 mg (65 mg iron) tablet 325 mg PO DAILY ascorbate calcium (vitamin C) 500 mg tablet 500 mg PO DAILY Changed spironolactone 50 mg tablet 30 mg PO DAILY Qty: 45 2RF Discontinued furosemide [Lasix] 20 mg tablet 20 mg PO DAILY Qty: 90 0RF Referrals / Follow Up: Renae Ludwig [Other] - 04/11/24 8:00 am Dacia Acosta MD [Primary Care Provider] - Within 1 Week Ricardo Pollack DPM [Med Staff - Active Staff] - Within 2 Weeks Son Adams MD [Med Staff - Active Staff] - Within 1 Month Disposition Disposition (needs filled in before D/C Order can be placed): Home, Self Care 12/06/23 1109<Electronically signed by Son Adams MD>Son Adams MD CC: PREMA Pollack; Dr. Sowmya Mirza MD; Dr. Dacia Acosta MD ~ Signed [facility] Work Phone: [phone]) 208-108403-11-2024 Consult note Author Marcelina Friend [facility] December 05, 2023 4:37pm Note Date/Time December 05, 2023 4:3 7pm [facility] Medical Records Department [address] [place] [id number] Consultation - GI 12/05/23 1633 MR#: [id number] Acct: [id number] Name: CAROLINA HIGHTOWER Rep #:[id number] : 1975 48 From: Marcelina Porras DO PCP: Dr. Dacia Acosta MD Status:AD M IN Location: [facility] [id number] HPI Consult Data Date of Consult: 12/05/23 HPI Narrative Reason for Consultation: Ascites HPI Narrative: CAROLINA HIGHTOWER, is a 48 F who presented She presented to [facility] ED with increased fatigue, forgetfulness, abdominal distention and confusion. History of HCV with remote history of IV drug use with possible cirrhosis with thrombocytopenia through [facility]. She was admitted for acute HE secondary to decompensated cirrhosis withhyperammonemia treated with lactulose. She has a history of frequent need for paracentesis secondary to refractory ascites. CT abd/pel 5.17.19 abd pain with normal liver without lesions; splenomegaly 15.1cm; renal calculi. Imaging prior to this with normal liver and without splenomegaly. Fib4 1.82 CT abd/pel 9.17.21 pain HCV Hx with moderately cirrhotic liver with volume redistribution to right lobe without ascites; moderate splenomegaly; inflammation of subhepatic space r/t right colon. Fib4 8.76 CT abd/pel 05.19. with cirrhotic liver with prominent caudate lobe and nodular surface without mass; splenomegaly; pancreatic calcification in uncinate process; renal calculi. Resolution of previously noted inflammation. Fib4 11.76 MELD 05.19.22 13?? She denies any no pruritis, jaundice She is having issues with lightheadedness with quick movements causing loss of balance, memory loss and brain fog is a difficulty, sleep pattern is disturbed for many years. She does have a lot of psychiatric diagnoses. Feels like she hasbeen having an increased appetite. Constipation is an issue with BM 1-2 times a week. Lactulose caused nausea and generally feeling unwell. Furosemide stopped becauseit was causing nocturia. PFSH Medical History Alcohol abuse Anemia Anxiety and depression Chronic pain Cirrhosis of liver COPD (chronic obstructive pulmonary disease) Gastric reflux GERD (gastroesophageal reflux disease) Hepatitis History of diverticulitis History of renal disease Hyperbilirubinemia Kidney stones Low iron Marijuana use Migraine headache MRSA infection Obesity Open wound Polysubstance abuse Restless legs Seizures Sleep apnea Smoker Substance abuse Thrombocytopenia Tobacco use Home Medications Vitamin D3 1,250 mcg OTHER QWEEK SUPPLEMENT 05/20/22 [History Last Taken Unknown] gabapentin 100 mg capsule 100 mg PO Q12H 07/20/23 [History Last Taken Unknown] furosemide 20 mg tablet (Lasix) 20 mg PO DAILY #90 tabs 10/07/23 [Rx Last Taken 11/09/23] lactulose 20 gram/30 mL oral solution 20 g (30 mL) PO TID 30 days #2,880 mL 10/07/23 [Rx Last Taken Unknown] spironolactone 50 mg tablet 75 mg (1.5 x 50 mg) PO DAILY #45 tabs 11/05/23 [Rx Last Taken Unknown] albuterol sulfate 90 mcg/actuation aerosol inhaler (Ventolin HFA) 2 puff inhalation Q4H PRN PRN shortness of breath or wheezing 12/04/23 [History Last Taken Unknown] ascorbate calcium (vitamin C) 500 mg tablet 500 mg PO DAILY 12/04/23 [History Last Taken Unknown] ferrous sulfate 325 mg (65 mg iron) tablet (FeroSul) 325 mg PO DAILY 12/04/23 [History Last Taken Unknown] Allergy/AdvReac Type Severity Reaction Status Date / Time bupropion HCl Allergy SEIZURES Verified 12/04/23 16:48 [From Wellbutrin] codeine Allergy Rash Verified 12/04/23 16:48 Family History Mother Diabetes Father Cancer HX Throat CA. Surgical History H/O tubal ligation History of liver biopsy Social History (Updated 12/04/23 @ 21:[address] Sowmya Mirza MD) adopted: No household members: family housing: other number of children: 3 current occupational status: unemployed pets and animals: Yes history of recent travel: No sexually active: Yes Smoking Status: Current every day smoker tobacco type: cigarettes Smoking packsper day: 1 Smoking cigarettes per day: 20.0 second hand exposure: Yes alcohol intake: current alcohol intake frequency: a few times a month substance use type: former substance user Date of last use: heroin, marijuana, heroin and methamphetamine seatbelt use: always do you feel safe at home: Yes ROS ROS Narrative Admission Review of Systems: CONSTITUTIONAL: No weight loss, fever, chills,+ weakness or fatigue. HEENT: Eyes: No visual loss, blurred vision, double vision or yellow sclerae. Ears, Nose, Throat: No hearing loss, sneezing, congestion, runny nose or sore throat. SKIN: No rash or itching, lesions, wounds. CARDIOVASCULAR: No chest pain, chest pressure or chest discomfort, palpitations,edema, orthopnea, syncopal events. RESPIRATORY: No shortness of breath, cough or sputum, wheezing, hemoptysis. GASTROINTESTINAL: + anorexia, nausea, generalized abdominal discomfort, distention with recurrent ascites. No vomiting, diarrhea, melena, BRBPR. GENITOURINARY: + dysuria, frequency. No urgency or retention. NEUROLOGICAL: + Hx seizure with wellbutrin. No headache, dizziness, syncope, paralysis, ataxia, numbness or tingling in the extremities, focal weakness, change in bowel or bladder control, seizure. MUSCULOSKELETAL: + muscle, back pain, joint pain or stiffness. HEMATOLOGIC: + anemia. Easy bleeding and bruising. LYMPHATICS: No enlarged nodes. No history of splenectomy. PSYCHIATRIC: + history of depression and anxiety. ENDOCRINOLOGIC: No reports of sweating, cold or heat intolerance. No polyuria orpolydipsia. ALLERGIES: No history of asthma, hives, eczema or rhinitis. Physical Exam Narrative Physical Examination: General: Awake, alert, oriented x 3 and cooperative, laying on her side in the ED, notes ongoing vague discomfort to the abdomen. Skin: Normal color, normal turgor, no icterus, no cyanosis except occasional staged ecchymoses. HEENT: AT/NC, EOMI, PERRLA, mildly dry MM, lack of dentition, no carotid bruits or JVD noted. Lungs: CTA bilaterally, moderate effort, mild decrease BL bases, no rales, ronchi or wheezing. Heart: Regular rate and rhythm; no gallop, rub audible. Abdomen: Soft, mild generalized discomfort but no rebound or guarding, mildly distended but not tense with reaccumulation of ascites noted, mildly hyperactiveBS, given ascites reaccumulation difficult to appreciate HM. Extremities: No cyanosis, no clubbing, no marked significant peripheral edema but she has in the past. Neurological: Patient awake, alert, oriented as noted, cognitive function currently baseline intact; pupils equally reactive to light and accommodation, cranial nerves II-XII grossly normal, moving all 4 extremities, no focal deficits, strength mildly to moderately globally decreased secondary to acute complaints. Psychiatric: Affect appears uncomfortable, reports being fed up with her ongoinghealth issues, does admit to being depressed but denies suicidal ideation. Lab / Micro Data 12/05/23 04:10 12/05/23 04:10 Labs: Laboratory Results - last 24 hr 12/04/23 17:25: WBC 6.1, RBC 3.68 L, Hgb 8.9 L, Hct 30.2 L, MCV 82.1, MCH 24.2 L, MCHC 29.5 L, RDW Std Deviation 79.4 H, RDW Coeff of Katalina 27.1 H, Plt Count 87 L, MPV 9.5, Immature Gran % (Auto) 0.300, Neut % (Auto) 62.4, Lymph % (Auto) 23.3, Coos % (Auto) 10.7 H, Eos % (Auto) 2.3, Baso % (Auto) 1.0, Absolute Neuts (auto) 3.8, Absolute Lymphs (auto) 1.43, Nucleated RBC % 0, Differential CommentSCANNED, Hypochromasia 1+, Anisocytosis 2+, Microcytosis 1+, Macrocytosis 1+, Target Cells RARE, PT 20.0 H, INR 1.7, Sodium 142, Potassium 4.0, Chloride 110 H, Carbon Dioxide 27.0, Anion Gap 5, BUN 10, Creatinine 0.82, Estim Creat Clear Calc 83.21, Est GFR (MDRD) Af Amer 95, Est GFR (MDRD) Non-Af 79, BUN/Creatinine Ratio 12.2, Glucose 117 H, Calcium 8.4 L, Phosphorus 2.3 L, Magnesium 1.6, TotalBilirubin 2.10 H, AST 58 H, ALT 47, Alkaline Phosphatase 143 H, Ammonia 45.0 H, Total Protein 7.3, Albumin 2.2 L, Globulin 5.1 H, Albumin/Globulin Ratio 0.4 L, Lipase 30 12/04/23 17:51: Urine Color Yellow, Urine Clarity Sl. Cloudy, Urine pH 6.5, Ur Specific [place] 1.015, Urine Protein 30 H, Urine Glucose (UA) Normal, Urine Ketones 15 H, Urine Occult Blood 50 H, Urine Nitrite Positive H, Urine Bilirubin3 H, Urine Urobilinogen 8 H, Ur Leukocyte Esterase 500 H, Urine RBC 5-10 SEEN, Urine WBC 25-50 SEEN, Ur Squamous Epith Cells 0-5 SEEN, Amorphous Sediment 1+ URATE, Urine Bacteria RARE, Urine Mucus 0 SEEN, Urine Opiates Screen NEGATIVE, Urine Methadone Screen NEGATIVE, Ur Barbiturates Screen NEGATIVE, Ur Phencyclidine Scrn NEGATIVE, Ur Amphetamines Screen NEGATIVE, MDMA (Ecstasy) Screen NEGATIVE, U Benzodiazepines Scrn NEGATIVE, Urine Cocaine Screen NEGATIVE, U Cannabinoids Screen POSITIVE H, Ur Drug Screen Comment 12/05/23 04:10: WBC 6.8, RBC 3.38 L, Hgb 8.3 L, Hct 27.6 L, MCV 81.7, MCH 24.6 L, MCHC 30.1 L, RDW Std Deviation 78.3 H, RDW Coeff of Katalina 26.8 H, Plt Count 81 L, MPV 9.7, Immature Gran % (Auto) 0.300, Neut % (Auto) 51.5, Lymph % (Auto) 30.9, Coos % (Auto) 13.5 H, Eos % (Auto) 3.1, Baso % (Auto) 0.7, Absolute Neuts (auto) 3.5, Absolute Lymphs (auto) 2.11, Nucleated RBC % 0, Anisocytosis 3+, Sodium 139, Potassium 3.9, Chloride 110 H, Carbon Dioxide 25.0, Anion Gap 4 L, BUN 11, Creatinine 0.78, Estim Creat Clear Calc 86.28, Est GFR (MDRD) Af Amer 101, Est GFR (MDRD) Non-Af 83, BUN/Creatinine Ratio 14.1, Glucose 89, Calcium 8.3 L, Phosphorus 2.8, Total Bilirubin 1.80 H, AST 57 H, ALT 46, Alkaline Phosphatase 130 H, Ammonia 37.0 H, Total Protein 7.0, Albumin 2.1 L, Globulin 4.9 H, Albumin/Globulin Ratio 0.4 L 12/05/23 : Fluid Source PERICARDIAL FLUID, Fluid Color LT YEL, Fluid Appearance CLEAR, Fluid WBC 0.136, Fluid RBC 101, Fluid Tot Cell Count 0.189 H, Fld Polynuclear WBCs # 0.006, Fld Polynuclear WBCs % 4.4, Fluid Mononuclear WBCs 0.130, Fld Mononuclear WBCs % 95.6, Fluid Lymphocytes 27, Fluid Macrophages 69, Fld Mesothelial Cells 4, Fl Pathologist Comment May follow, Fluid Glucose 95 H, Fluid Comment 2 SEE COMMENT Micro: Microbiology 12/05/23 Unknown Fluid - Ascites Gram Stain - Final Imaging Radiology Impression Abdomen/Pelvis CT 12/04/23 17:14 IMPRESSION: 1. 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 2. Diffuse abdominal ascites. 3. Splenomegaly. 4. Hepatic cirrhosis. 5. Portal hypertension. 6. Nonobstructive right renal stones measuring up to 10 mm. Electronically Signed: Tejas Bhakta MD at 19:07 EDT , Assessment & Plan Assessment/Plan (1) Cirrhosis of liver: QUALIFIERS: Hepatic cirrhosis type: unspecified hepatic cirrhosis Ascites presence: with ascites Qualified Code(s): K74.60 - Unspecified cirrhosis of liver; R18.8 - Other ascites (2) Ascites: QUALIFIERS: Ascites type: due to alcoholic hepatitis Qualified Code(s): K70.11 - Alcoholic hepatitis with ascites PLAN: Plan Abdominal ascites in the setting of alcoholic liver cirrhosis * admitted o/a of abdominal pain * last had paracentesis about 2-3 weeks ago. Usually has it every 2-3 weeks * CT abdomen showed massive ascites and distended gallbladder with some wall thickening and enhancement but without gallstones or biliary dilatation. It is difficult to check [place] sign due to massive ascites. She underwent large- volume paracentesis. Awaiting analysis for SBP. * Continue current medication regimen. And midodrine 10 mg p.o. 3 times daily to help decrease the amount of ascites that she makes on a daily basis. Check alpha-fetoprotein * Nadolol 10 mg p.o. twice daily for variceal prophylaxis #Alcoholic liver cirrhosis: On lactulose, nadolol and spironolactone DVT prophylaxis: SCDs Charges/Coding Visit Charges Inpatient E&M: 86386 Init Hosp L3 12/05/23 1637 <Electronically signed by Marcelina Friend DO> Cosigner Signature (if applicable): CC: Dr. Sowmya Mirza MD; Dr. Dacia Acosta MD~ Signed [facility] Work Phone: 1(397) 944-294003-11-2024 Progress note Author Son Adams [facility] December 05, 2023 2:40pm Note Date/Time December 05, 2023 8:[address] [facility] Medical Records Department [address] [place] [address] Progress Note - Hospitalist 12/05/23 0815 MR#: [id number] Acct: [id number] Name: CAROLINA HIGHTOWER Rep #:[id number] : 1975 48 From: Son Connelly PCP: Dr. Dacia Acosta MD Status:AD M IN Location: [place] [address] Reason for Visit Reason for Visit: Diagnoses Unspecified cirrhosis of liver (12/04/23) Other ascites (12/04/23) Objective Data Objective Data Vital Signs: Vital Signs Temp Pulse Resp BP Pulse Ox O2 Del Method 97.6 F L 97 16 116/67 96 Room Air 12/05/23 07:39 12/05/23 07:39 12/05/23 07:39 12/05/23 07:39 12/05/23 07:39 12/05/23 07:39 Oxygen Delivery Method Room Air Weight: 183 lb 6.793 oz Body Mass Index (BMI) 33.5 Intake & Output: Intake and Output for Last 24 Hours 12/03/23 12/04/23 12/05/23 22:59 23:59 23:59 Intake Total Balance Lab / Micro Data 12/05/23 04:10 12/05/23 04:10 Labs: Laboratory Results - last 24 hr 12/04/23 17:25: WBC 6.1, RBC 3.68 L, Hgb 8.9 L, Hct 30.2 L, MCV 82.1, MCH 24.2 L, MCHC 29.5 L, RDW Std Deviation 79.4 H, RDW Coeff of Katalina 27.1 H, Plt Count 87 L, MPV 9.5, Immature Gran % (Auto) 0.300, Neut % (Auto) 62.4, Lymph % (Auto) 23.3, Coos % (Auto) 10.7 H, Eos % (Auto) 2.3, Baso % (Auto) 1.0, Absolute Neuts (auto) 3.8, Absolute Lymphs (auto) 1.43, Nucleated RBC % 0, Differential CommentSCANNED, Hypochromasia 1+, Anisocytosis 2+, Microcytosis 1+, Macrocytosis 1+, Target Cells RARE, PT 20.0 H, INR 1.7, Sodium 142, Potassium 4.0, Chloride 110 H, Carbon Dioxide 27.0, Anion Gap 5, BUN 10, Creatinine 0.82, Estim Creat Clear Calc 83.21, Est GFR (MDRD) Af Amer 95, Est GFR (MDRD) Non-Af 79, BUN/Creatinine Ratio 12.2, Glucose 117 H, Calcium 8.4 L, Phosphorus 2.3 L, Magnesium 1.6, TotalBilirubin 2.10 H, AST 58 H, ALT 47, Alkaline Phosphatase 143 H, Ammonia 45.0 H, Total Protein 7.3, Albumin 2.2 L, Globulin 5.1 H, Albumin/Globulin Ratio 0.4 L, Lipase 30 12/04/23 17:51: Urine Color Yellow, Urine Clarity Sl. Cloudy, Urine pH 6.5, Ur Specific [place] 1.015, Urine Protein 30 H, Urine Glucose (UA) Normal, Urine Ketones 15 H, Urine Occult Blood 50 H, Urine Nitrite Positive H, Urine Bilirubin3 H, Urine Urobilinogen 8 H, Ur Leukocyte Esterase 500 H, Urine RBC 5-10 SEEN, Urine WBC 25-50 SEEN, Ur Squamous Epith Cells 0-5 SEEN, Amorphous Sediment 1+ URATE, Urine Bacteria RARE, Urine Mucus 0 SEEN, Urine Opiates Screen NEGATIVE, Urine Methadone Screen NEGATIVE, Ur Barbiturates Screen NEGATIVE, Ur Phencyclidine Scrn NEGATIVE, Ur Amphetamines Screen NEGATIVE, MDMA (Ecstasy) Screen NEGATIVE, U Benzodiazepines Scrn NEGATIVE, Urine Cocaine Screen NEGATIVE,U Cannabinoids Screen POSITIVE H, Ur Drug Screen Comment 12/05/23 04:10: WBC 6.8, RBC 3.38 L, Hgb 8.3 L, Hct 27.6 L, MCV 81.7, MCH 24.6 L, MCHC 30.1 L, RDW Std Deviation 78.3 H, RDW Coeff of Katalina 26.8 H, Plt Count 81 L, MPV 9.7, Immature Gran % (Auto) 0.300, Neut % (Auto) 51.5, Lymph % (Auto) 30.9, Coos % (Auto) 13.5 H, Eos % (Auto) 3.1, Baso % (Auto) 0.7, Absolute Neuts (auto) 3.5, Absolute Lymphs (auto) 2.11, Nucleated RBC % 0, Anisocytosis 3+, Sodium 139, Potassium 3.9, Chloride 110 H, Carbon Dioxide 25.0, Anion Gap 4 L, BUN 11, Creatinine 0.78, Estim Creat Clear Calc 86.28, Est GFR (MDRD) Af Amer 101, Est GFR (MDRD) Non-Af 83, BUN/Creatinine Ratio 14.1, Glucose 89, Calcium 8.3 L, Total Bilirubin 1.80 H, AST 57 H, ALT 46, Alkaline Phosphatase 130 H, Ammonia 37.0 H, Total Protein 7.0, Albumin 2.1 L, Globulin 4.9 H, Albumin/Globulin Ratio 0.4 L Radiography Diagnostic Testing: Radiology Impression Abdomen/Pelvis CT 12/04/23 17:14 IMPRESSION: 1. 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 2. Diffuse abdominal ascites. 3. Splenomegaly. 4. Hepatic cirrhosis. 5. Portal hypertension. 6. Nonobstructive right renal stones measuring up to 10 mm. Electronically Signed: Tejas Bhakta MD at 19:07 EDT , Physical Exam Narrative Seen and examined. Patient complain of abdominal pain and febrile could not breathe because of abdominal distention from ascites. She had diagnostic and therapeutic ultrasound-guided paracentesis today Physical exam General: Alert, Oriented x3, Cooperative, obesity grade 2 BMI 33.5 kg/m? HEENT: Atraumatic, PERRLA, EOMI, Normocephalic Oral: No Gingival or Mucosal Lesions/ Ulcerations Neck: Supple, No JVD, Negative Carotid Bruits Chest wall/Lungs: Air entry diminished in bilateral lung bases. No crepitation/rhonchi Cardiovascular: Regular rate, Regular Rhythm, Normal S1, Normal S2, No M/G/R Abdomen: Bowel Sounds Present, Soft, still has mild ascites. No significant tenderness/rebound tenderness. : No dysuria. No renal angle tenderness. No suprapubic tenderness. Extremities: No edema, Capillary Refill Less than 3 Seconds Skin: No rashes, No breakdown Musculoskeletal: Ingrown toenail. No Tenderness to Palpation of Joints or Extremities Neurological: Cranial nerves II-XII grossly intact, DTR 2+/4. No acute focal neurological deficit. Psych/Mental Status: Flat affect. Assessment & Plan Assessment/Plan (1) Cirrhosis of liver: QUALIFIERS: Ascites presence: with ascites Hepatic cirrhosis type: unspecified hepatic cirrhosis Qualified Code(s): K74.60 - Unspecified cirrhosis of liver; R18.8 - Other ascites PLAN: Plan The patient is a 48 y/o F came to ED with generalized abdominal pain and nausea for the last 2 days. Patient also has dysuria for past several days and was puton Macrobid a week ago by PCP but patient not taking it because of fear that might make her abdominal pain worse. Patient is not adherent with regimen of lactulose she is confused. Denies fever or chills. #1. Worsening ascites with history of chronic decompensated hep C cirrhosis requiring multiple recurrent paracentesis, hepatic encephalopathy, thrombocytopenia and esophageal varices suggestive of portal hypertension: Patient is abdominal discomfort. Patient admitted to PCU. Patient went for paracentesis. Ultrasound called to send the fluid for analysis to calculate SAAG. Chronic thrombocytopenia due to decompensated cirrhosis. She ranges anywhere between 50,000-80,000. Nonadherent to lactulose. Continue IV ceftriaxone. Patient had 3200 mL clear fluid drained. 25 g IV albumin ordered. #2. Acute Complicated Urinary Tract Infection: UA upon ED evaluation remarkablefor nitrite and LE +500. WBC 25-50 cells, Urine culture pending. Empiricallypatient started on IV ceftriaxone. #3. Chronic COPD: Will hold all home inhalers in the interim placed on ATC budesonide therapy, PRN albuterol, HOB, IS parameters. #4. Incidental nonobstructive right renal stones: CT abdomen pelvis with nonobstructive right renal stones measuring up to 10 mm. #5. History of polysubstance abuse: Patient with prior history of IV drug abusewith last usage approximately 7 years prior to current presentation with previous heroin, methamphetamine, cannabis usage, UDS requested. = #6. Anxiety and depression: Per current list on a regimen, clarifying as patient in the past had been on a significant regimen including duloxetine, desvenlafaxine, aripiprazole home regimen. Given patient's significant displeasure with her ongoing health issues would be imperative to potentially restart medications as well as outpatient counseling. Case management consulted. #7. Chronic normocytic anemia/iron deficiency anemia: Admission hemoglobin 8.9,MCV 82.1, Baseline hemoglobin runs between 9 to 10 g. #8. Other multiple comorbidities include obesity grade 3 mainly fluid weight, GERD, obstructive sleep apnea on CPAP and chronic tobacco use/smoking. CODE status: Patient does not have healthcare power of title attorney nor living will. Full Code status. Charges/Coding Visit Charges Inpatient E&M: 84438 Subs Hosp L2 12/05/23 1440 <Electronically signed by Son Adams MD> Cosigner Signature (if applicable): CC: ~ Signed [facility] Work Phone: 1(335) 908-249703-11-2024 Procedure [facility] 12-04-2023 History and physical note Author Sowmya Mirza [facility] December 04, 2023 9:28pm Note Date/Time December 04, 2023 8:[address] [facility] Medical Records Department [address] [place] [address] H&P Exam - Hospitalist 12/04/232032 MR#: [id number] Acct: [id number] Name: CAROLINA HIGHTOWER Rep #:[id number] : 1975 48 From: Sowmya Mirza MD PCP: Dr. Dacia Acosta MD Status:AD M IN Location: [facility] [id number]- [id number] HPI - General General Date of Admission: 12/04/23 Date of Service: 12/04/23 Chief Complaint: Abdominal pain, dysuria. HPI Narrative The patient is a 48 y/o F w/ PMHx: Obesity, Chronic anemia/iron deficiency anemia, Anxiety and Depression, Chronic hepatitis C/cirrhosis with chronic LFT/Bilirubin elevations w/ Hx polysubstance abuse (heroin, cannabis, methamphetamine), Tobacco use, Chronic thrombocytopenia who presents to the [facility] ED on 12/04/23 with history of generalized abdominal discomfort over the last 48 hours with dysuria over the last several days recently placed on Macrobid 1 weekprior by her PCP however she has not been taking it with recent paracentesis within the last couple weeks and patient also reports she is unsure if she is been taking her lactulose correctly with decreased appetite with no recent fevers or chills nor any emesis but given ongoing abdominal discomfort and dysuria prompted ED evaluation. In the ED with nursing staff patient did reportthat she cannot stand living like this and when discussed further notes she means being in pain. She stated that she was unhappy with how she feels on a constant basis but when discussed suicidal ideations or plans she denies franklyand has no intent or thoughts. In the ED despite her complaints about generalized discomfort she is asking for food and drink. She does state that she still occasionally socially drinks. Workup in the ED included T96.4, heart rate 81, BP 127/83, respiratory rate 18, 97% on room air, CBC with WBC 6.1, human 8.9, MCV 82.1, platelet 87 without marked shift, coags with INR 1.7, PT 20, CMP with chloride 110, glucose 114, calcium 8.4, total bilirubin 2.10, AST/LT 58/47, alk phos 143, ammonia 45, lipase 30, CT abdomen and pelvis with diffuse gallbladder distention suggesting ectopic gallbladder, diffuse abdominalascites, splenomegaly, hepatic cirrhosis, portal hypertension, nonobstructive right renal stones measuring up to 10 mm, urinalysis with cloudy appearing urine, protein 30, ketone 15, occult blood 50, positive nitrate, urine bilirubin3, urine urobilinogen 8, urine leukocyte Estrace 500 with 25-50 urine WBCs however there is only rare bacteria noted, urine culture pending per ED. In theED patient ministered Zofran 4 mg IV x 2, morphine 2 mg IV x 1 and morphine 4 mgIV x 1 as well as IV Rocephin 1 g. PFSH Medical History Alcohol abuse Anemia Anxiety and depression Chronic pain Cirrhosis of liver COPD (chronic obstructive pulmonary disease) Gastric reflux GERD (gastroesophageal reflux disease) Hepatitis History of diverticulitis History of renal disease Hyperbilirubinemia Kidney stones Low iron Marijuana use Migraine headache MRSA infection Obesity Open wound Polysubstance abuse Restless legs Seizures Sleep apnea Smoker Substance abuse Thrombocytopenia Tobacco use Home Medications Vitamin D3 1,250 mcg OTHER QWEEK SUPPLEMENT 05/20/22 [History Last Taken Unknown] gabapentin 100 mg capsule 100 mg PO Q12H 07/20/23 [History Last Taken Unknown] furosemide 20 mg tablet (Lasix) 20 mg PO DAILY #90 tabs 10/07/23 [Rx Last Taken 11/09/23] lactulose 20 gram/30 mL oral solution 20 g (30 mL) PO TID 30 days #2,880 mL 10/07/23 [Rx Last Taken Unknown] spironolactone 50 mg tablet 75 mg (1.5 x 50 mg) PO DAILY #45 tabs 11/05/23 [Rx Last Taken Unknown] albuterol sulfate 90 mcg/actuation aerosol inhaler (Ventolin HFA) 2 puff inhalation Q4H PRN PRN shortness of breath or wheezing 12/04/23 [History Last Taken Unknown] ascorbate calcium (vitamin C) 500 mg tablet 500 mg PO DAILY 12/04/23 [History Last Taken Unknown] ferrous sulfate 325 mg (65 mg iron) tablet (FeroSul) 325 mg PO DAILY 12/04/23 [History Last Taken Unknown] Allergy/AdvReac Type Severity Reaction Status Date / Time bupropion HCl Allergy SEIZURES Verified 12/04/23 16:48 [From Wellbutrin] codeine Allergy Rash Verified 12/04/23 16:48 Family History Mother Diabetes Father Cancer HX Throat CA. Surgical History H/O tubal ligation History of liver biopsy Social History (Updated 12/04/23 @ 21:[address] Sowmya Mirza MD) adopted: No household members: family housing: other number of children: 3 current occupational status: unemployed pets and animals: Yes history of recent travel: No sexually active: Yes Smoking Status: Current every day smoker tobacco type: cigarettes Smoking packsper day: 1 Smoking cigarettes per day: 20.0 second hand exposure: Yes alcohol intake: current alcohol intake frequency: a few times a month substance use type: former substance user Date of last use: heroin, marijuana, heroin and methamphetamine seatbelt use: always do you feel safe at home: Yes ROS ROS Narrative Admission Review of Systems: CONSTITUTIONAL: No weight loss, fever, chills,+ weakness or fatigue. HEENT: Eyes: No visual loss, blurred vision, double vision or yellow sclerae. Ears, Nose, Throat: No hearing loss, sneezing, congestion, runny nose or sore throat. SKIN: No rash or itching, lesions, wounds. CARDIOVASCULAR: No chest pain, chest pressure or chest discomfort, palpitations,edema, orthopnea, syncopal events. RESPIRATORY: No shortness of breath, cough or sputum, wheezing, hemoptysis. GASTROINTESTINAL: + anorexia, nausea, generalized abdominal discomfort, distention with recurrent ascites. No vomiting, diarrhea, melena, BRBPR. GENITOURINARY: + dysuria, frequency. No urgency or retention. NEUROLOGICAL: + Hx seizure with wellbutrin. No headache, dizziness, syncope, paralysis, ataxia, numbness or tingling in the extremities, focal weakness, change in bowel or bladder control, seizure. MUSCULOSKELETAL: + muscle, back pain, joint pain or stiffness. HEMATOLOGIC: + anemia. Easy bleeding and bruising. LYMPHATICS: No enlarged nodes. No history of splenectomy. PSYCHIATRIC: + history of depression and anxiety. ENDOCRINOLOGIC: No reports of sweating, cold or heat intolerance. No polyuria orpolydipsia. ALLERGIES: No history of asthma, hives, eczema or rhinitis. Vital Signs Vital Signs Vital Signs: 12/04/23 16:48 12/04/23 20:09 12/04/23 20:10 Temperature 96.4 F L 97.8 F 97.8 F Temperature Source Temporal Oral Pulse Rate 81 74 74 Respiratory Rate 18 20 H 20 H Blood Pressure 127/83 H 119/75 119/75 Blood Pressure Mean 97 89 89 Pulse Ox 97 100 100 Oxygen Delivery Method Room Air Room Air Weight Weight: 188 lb 4.396 oz Body Mass Index (BMI) 34.6 Physical Exam Narrative Physical Examination: General: Awake, alert, oriented x 3 and cooperative, laying on her side in the ED, notes ongoing vague discomfort to the abdomen. Skin: Normal color, normal turgor, no icterus, no cyanosis except occasional staged ecchymoses. HEENT: AT/NC, EOMI, PERRLA, mildly dry MM, lack of dentition, no carotid bruits or JVD noted. Lungs: CTA bilaterally, moderate effort, mild decrease BL bases, no rales, ronchi or wheezing. Heart: Regular rate and rhythm; no gallop, rub audible. Abdomen: Soft, mild generalized discomfort but no rebound or guarding, mildly distended but not tense with reaccumulation of ascites noted, mildly hyperactiveBS, given ascites reaccumulation difficult to appreciate HM. Extremities: No cyanosis, no clubbing, no marked significant peripheral edema but she has in the past. Neurological: Patient awake, alert, oriented as noted, cognitive function currently baseline intact; pupils equally reactive to light and accommodation, cranial nerves II-XII grossly normal, moving all 4 extremities, no focal deficits, strength mildly to moderately globally decreased secondary to acute complaints. Psychiatric: Affect appears uncomfortable, reports being fed up with her ongoinghealth issues, does admit to being depressed but denies suicidal ideation. Results Lab / Micro Data 12/04/23 17:25 12/04/23 17:25 Labs: Laboratory Results - last 24 hr 12/04/23 17:25: WBC 6.1, RBC 3.68 L, Hgb 8.9 L, Hct 30.2 L, MCV 82.1, MCH 24.2 L, MCHC 29.5 L, RDW Std Deviation 79.4 H, RDW Coeff of [place] 27.1 H, Plt Count 87 L, MPV 9.5, Immature Gran % (Auto) 0.300, Neut % (Auto) 62.4, Lymph % (Auto) 23.3, Coos % (Auto) 10.7 H, Eos % (Auto) 2.3, Baso % (Auto) 1.0, Absolute Neuts (auto) 3.8, Absolute Lymphs (auto) 1.43, Nucleated RBC % 0, Differential CommentSCANNED, Hypochromasia 1+, Anisocytosis 2+, Microcytosis 1+, Macrocytosis 1+, Target Cells RARE, PT 20.0 H, INR 1.7, Sodium 142, Potassium 4.0, Chloride 110 H, Carbon Dioxide 27.0, Anion Gap 5, BUN 10, Creatinine 0.82, Estim Creat Clear Calc 83.21, Est GFR (MDRD) Af Amer 95, Est GFR (MDRD) Non-Af 79, BUN/Creatinine Ratio 12.2, Glucose 117 H, Calcium 8.4 L, Total Bilirubin 2.10 H, AST 58 H, ALT 47, Alkaline Phosphatase 143 H, Ammonia 45.0 H, Total Protein 7.3, Albumin 2.2 L, Globulin 5.1 H, Albumin/Globulin Ratio 0.4 L, Lipase 30 12/04/23 17:51: Urine Color Yellow, Urine Clarity Sl. Cloudy, Urine pH 6.5, Ur Specific [place] 1.015, Urine Protein 30 H, Urine Glucose (UA) Normal, Urine Ketones 15 H, Urine Occult Blood 50 H, Urine Nitrite Positive H, Urine Bilirubin3 H, Urine Urobilinogen 8 H, Ur Leukocyte Esterase 500 H, Urine RBC 5-10 SEEN, Urine WBC 25-50 SEEN, Ur Squamous Epith Cells 0-5 SEEN, Amorphous Sediment 1+ URATE, Urine Bacteria RARE, Urine Mucus 0 SEEN Imaging Radiology Impression Abdomen/Pelvis CT 12/04/23 17:14 IMPRESSION: 1. 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 2. Diffuse abdominal ascites. 3. Splenomegaly. 4. Hepatic cirrhosis. 5. Portal hypertension. 6. Nonobstructive right renal stones measuring up to 10 mm. Electronically Signed: Tejas Bhakta MD at 19:07 EDT , Assessment & Plan Assessment/Plan (1) Cirrhosis of liver: QUALIFIERS: Ascites presence: with ascites Hepatic cirrhosis type: unspecified hepatic cirrhosis Qualified Code(s): K74.60 - Unspecified cirrhosis of liver; R18.8 - Other ascites PLAN: Plan The patient is a 48 y/o F w/ PMHx: Obesity, Chronic anemia/iron deficiency anemia, Anxiety and Depression, Chronic hepatitis C/cirrhosis with chronic LFT/Bilirubin elevations w/ Hx polysubstance abuse (heroin, cannabis, methamphetamine), Tobacco use, Chronic thrombocytopenia who presents to the [facility] ED on 12/04/23 with history of generalized abdominal discomfort over the last 48 hours with dysuria over the last several days recently placed on Macrobid 1 weekprior by her PCP however she has not been taking it with recent paracentesis within the last couple weeks and patient also reports she is unsure if she is been taking her lactulose correctly with decreased appetite with no recent fevers or chills nor any emesis but given ongoing abdominal discomfort and dysuria prompted ED evaluation. #1. Acute Worsened Ascites w/ Acute Decompensated Cirrhosis with abdominal discomfort likely associated, quick reaccumulation with mild hyperammonemia withalcohol abuse history, still with current alcohol intake: Will admit to MS, maintain on low Na/DM diet, water 1500 ml restriction, continue patient home oral Lasix, spironolactone, lactulose regimen, presentation ammonia level very mildly elevated 45, repeat ammonia level in AM, request repeat therapeutic paracentesis, continue treatment for possible UTI as noted below concurrently. Strongly encourage absolute sobriety which was discussed at length with patient given underlying cirrhotic disease. Case management consulted. #2. Acute Complicated Urinary Tract Infection: UA upon ED evaluation remarkable, pending UCx, monitor I/Os, continue IV Rocephin w/ transition as able pending sensitivities and speciation. #3. Chronic COPD: Will hold all home inhalers in the interim placed on ATC budesonide therapy, PRN albuterol, HOB, IS parameters. #4. Incidental nonobstructive right renal stones: CT abdomen pelvis with nonobstructive right renal stones measuring up to 10 mm. #5. History of polysubstance abuse: Patient with prior history of IV drug abusewith last usage approximately 7 years prior to current presentation with previous heroin, methamphetamine, cannabis usage, UDS requested. = #6. Anxiety and depression: Per current list on a regimen, clarifying as patient in the past had been on a significant regimen including duloxetine, desvenlafaxine, aripiprazole home regimen. Given patient's significant displeasure with her ongoing health issues would be imperative to potentially restart medications as well as outpatient counseling. Case management consulted. #7. Chronic normocytic anemia/iron deficiency anemia: Admission hemoglobin 8.9,MCV 82.1, baseline hemoglobin most recently primarily 9 range although occasionally 10, 11/10/2019 410.3, will continue to trend, continue iron supplementation. #8. Chronic thrombocytopenia: Secondary to underlying liver disease, admission platelets 87, baseline primarily 50-100 range, will continue to trend. #9. Tobacco Abuse: Encouraged cessation, inpatient consultation per RT, NR if desired. #10. Obesity: Weight loss and lifestyle changes encouraged. #11. GERD: Per current list on a regimen, clarifying, will have as needed Mylanta. #12. SUMAYA: Encourage CPAP nightly. #13. DVT prophylaxis: SCDs, defer chemoprophylaxis given planned paracentesis and thrombocytopenia. #14. CODE status: Patient does not have healthcare power of title attorney nor [facility]. Full Code status. Charges/Coding Visit Charges Inpatient E&M: 36304 Init Hosp L3 12/04/232127 <Electronically signed by Sowmya Mirza MD> Cosigner Signature (if applicable): CC: Dr. Sowmya Mirza MD; Dr. Dacia Acosta MD~ Signed [facility] Work Phone: 1(207) 608-373903-10-2024 Discharge summary Author Mica Díaz [facility] December 04, 2023 9:05pm Note Date/Time December 04, 2023 6:[address] [facility] Medical Records Department [address] [place] [address] Emergency Department Summary 12/04/23 MR#: [id number] Acct: [id number] Name: CAROLINA HIGHTOWER Rep #:[id number] : 1975 48 From: Emperatriz Craig MD PCP: Dr. Dacia Acosta MD Status:AD M IN Location: [facility] [id number]- [id number] <Statement entered by Emperatriz Craig MD - 12/04/23 20:33> I have personally performed a face to face assessment of the patient and have reviewed the DARWIN Note. Patient seen and evaluated secondary to lower abdominal pain. She has a historyof cirrhosis with recurrent ascites. She last had paracentesis about 2 weeks ago. She states that she was given Macrobid for UTI, but it made her abdominal pain worse so she stopped taking it. Patient lying in bed in no acute distress, but does appear uncomfortable. Head and neck examination unremarkable. Heart is regular rate and rhythm. Lung sounds are clear. Abdomen is distended. Mild diffuse tenderness. No guarding or rebound. Lab work reviewed. Patient has chronic changes to her liver and ammonia. She does have evidence of UTI. CT scan does reveal recurrent ascites. Patient given IV antibiotics for her UTI. We discussed case with Dr. Porras, her GI specialist as well as hospitalist for admission. HPI History of Present Illness Chief Complaint: Complaint Narrative Narrative: Patient presenting today due to nausea and generalized abdominal pain that she has had over the past 2 days. She reports that she has also had dysuria over the past several days and was placed on Macrobid about a week ago by her PCP buthas not been compliant with taking this due to fears that will make her abdominal pain worse. She does have a history of hepatitis C, liver cirrhosis, and ascites. She last had a paracentesis a few weeks ago. She reports that sheis not sure if she has been taking her lactulose correctly or not but is feelingconfused. She has had decreased appetite due to her abdominal pain. She deniesfevers, chills, and vomiting. PFSH PFSH Medical History Acute insomnia Alcohol abuse Anemia Anxiety and depression Ascites Chronic pain Cirrhosis of liver COPD (chronic obstructive pulmonary disease) Depression Gastric reflux GERD (gastroesophageal reflux disease) Hepatitis History of diverticulitis History of edema History of pain when walking History of renal disease Hyperbilirubinemia Kidney stones Loss of consciousness Low iron Marijuana use Migraine headache MRSA infection Obesity Open wound Polysubstance abuse Rash Restless legs Seizures Shortness of breath on exertion Sleep apnea Smoker Substance abuse Thrombocytopenia Tobacco use Home Medications Vitamin D3 1,250 mcg OTHER QWEEK SUPPLEMENT 05/20/22 [History Last Taken Unknown] gabapentin 100 mg capsule 100 mg PO Q12H 07/20/23 [History Last Taken Unknown] furosemide 20 mg tablet (Lasix) 20 mg PO DAILY #90 tabs 10/07/23 [Rx Last Taken 11/09/23] lactulose 20 gram/30 mL oral solution 20 g (30 mL) PO TID 30 days #2,880 mL 10/07/23 [Rx Last Taken Unknown] spironolactone 50 mg tablet 75 mg (1.5 x 50 mg) PO DAILY #45 tabs 11/05/23 [Rx Last Taken Unknown] albuterol sulfate 90 mcg/actuation aerosol inhaler (Ventolin HFA) 2 puff inhalation Q4H PRN PRN shortness of breath or wheezing 12/04/23 [History Last Taken Unknown] ascorbate calcium (vitamin C) 500 mg tablet 500 mg PO DAILY 12/04/23 [History Last Taken Unknown] ferrous sulfate 325 mg (65 mg iron) tablet (FeroSul) 325 mg PO DAILY 12/04/23 [History Last Taken Unknown] Allergy/AdvReac Type Severity Reaction Status Date / Time bupropion HCl Allergy SEIZURES Verified 12/04/23 16:48 [From Wellbutrin] codeine Allergy Rash Verified 12/04/23 16:48 Family History Mother Diabetes Father Cancer HX Throat CA. 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, marijuana, heroin and methamphetamine seatbelt use: always do you feel safe at home: Yes ROS ROS ED Constitutional Constitutional ED: Denies chills or fever(s) Cardiovascular Cardiovascular: Denies chest pain Respiratory/Chest Respiratory/Chest: Denies cough or dyspnea Gastrointestinal Gastrointestinal: Reports abdominal pain and nausea; Denies diarrhea or vomiting Genitourinary Genitourinary ED: Reports dysuria; Denies hematuria Musculoskeletal Musculoskeletal: Denies arthralgias or myalgias Integumentary Denies rash Neurologic Neurologic: Reports confusion; Denies weakness EXAM Physical Exam Const Vital Signs: 12/04/23 16:48 12/04/23 20:09 12/04/23 20:10 Temperature 96.4 F L 97.8 F 97.8 F Temperature Source Temporal Oral Pulse Rate 81 74 74 Respiratory Rate 18 20 H 20 H Blood Pressure 127/83 H 119/75 119/75 Blood Pressure Mean 97 89 89 Pulse Ox 97 100 100 Oxygen Delivery Method Room Air Room Air Positive well nourished, well developed and no apparent distress General Appearance ED: well developed HEENT Reports normocephalic and head/scalp atraumatic Mouth ED: Yes moist mucous membranes normal Eyes PERRL and EOMs intact bilaterally Neck full ROM and supple Chest Wall inspection of chest normal Resp normal respiratory effort and clear to auscultation bilaterally Cardio regular rate and regular rhythm GI soft to palpation, non-tender and no masses GI Narrative: Abdominal distention with ascites. Back/Spine normal ROM and normal to inspection Extremity normal to inspection and full ROM Neuro oriented x3, CN's II-XII intact bilaterally, moves all extremities, no focal motor deficits and no sensory deficits noted Sensorium / Orientation: awake and alert Psych mental status grossly normal and thought process normal Skin no rashes or lesions noted and no wounds MDM MDM MDM Narrative Medical decision making narrative: Patient presenting today due to abdominal pain, ascites, concerns for UTI. She is on Macrobid from her PCP but has not been taking this regularly due to concerns that would make her abdominal pain worse. She reports that she has hadsome intermittent confusion, she thinks she is taking her lactulose daily but isnot sure. She does seem to have slight confusion on exam. Workup will be obtained. She does appear to have a UTI, ammonia level is elevated compared to previous visit. CT of the abdomen and pelvis obtained to rule out abdominal etiology, this does show ascites, portal hypertension, nonobstructing kidney stone. She will be given Rocephin for her UTI and IV analgesia. I do think she would benefit from a paracentesis and given her confusion, there are concerns for hepatic encephalopathy. I did discuss this with Dr. Porras, he recommends paracentesis. I will discuss the case with the hospitalist and she will be admitted in stable condition. Lab Data Attestation: I reviewed the patient's lab results. Lab results narrative: H&H of 8.9, 30.2, bilirubin 2.1, AST 58, alkaline phosphatase 143 Labs: Laboratory Results - last 24 hr 12/04/23 12/04/23 17:25 17:51 WBC 6.1 RBC 3.68 L Hgb 8.9 L Hct 30.2 L MCV 82.1 MCH 24.2 L MCHC 29.5 L RDW Std Deviation 79.4 H RDW Coeff of Katalina 27.1 H Plt Count 87 L MPV 9.5 Immature Gran % (Auto) 0.300 Neut % (Auto) 62.4 Lymph % (Auto) 23.3 Coos % (Auto) 10.7 H Eos % (Auto) 2.3 Baso % (Auto) 1.0 Absolute Neuts (auto) 3.8 Absolute Lymphs (auto) 1.43 Nucleated RBC % 0 Differential Comment SCANNED Hypochromasia 1+ Anisocytosis 2+ Microcytosis 1+ Macrocytosis 1+ Target Cells RARE PT 20.0 H INR 1.7 Sodium 142 Potassium 4.0 Chloride 110 H Carbon Dioxide 27.0 Anion Gap 5 BUN 10 Creatinine 0.82 Estim Creat Clear Calc 83.21 Est GFR (MDRD) Af Amer 95 Est GFR (MDRD) Non-Af 79 BUN/Creatinine Ratio 12.2 Glucose 117 H Calcium 8.4 L Phosphorus 2.3 L Magnesium 1.6 Total Bilirubin 2.10 H AST 58 H ALT 47 Alkaline Phosphatase 143 H Ammonia 45.0 H Total Protein 7.3 Albumin 2.2 L Globulin 5.1 H Albumin/Globulin Ratio 0.4 L Lipase 30 Urine Color Yellow Urine Clarity Sl. Cloudy Urine pH 6.5 Ur Specific [place] 1.015 Urine Protein 30 H Urine Glucose (UA) Normal Urine Ketones 15 H Urine Occult Blood 50 H Urine Nitrite Positive H Urine Bilirubin 3 H Urine Urobilinogen 8 H Ur Leukocyte Esterase 500 H Urine RBC 5-10 SEEN Urine WBC 25-50 SEEN Ur Squamous Epith Cells 0-5 SEEN Amorphous Sediment 1+ URATE Urine Bacteria RARE Urine Mucus 0 SEEN Radiography Diagnostic Testing: Clinical Impression(s) from Imaging Studies Abdomen/Pelvis CT 12/04/23 17:14 IMPRESSION: 1. 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 2. Diffuse abdominal ascites. 3. Splenomegaly. 4. Hepatic cirrhosis. 5. Portal hypertension. 6. Nonobstructive right renal stones measuring up to 10 mm. Electronically Signed: Tejas Bhakta MD at 19:07 EDT Reading Location ID and State: [facility] / [place] , Service support , Discharge Plan Triage Chief Complaint: Complaint Other Complaint: Abd Pain ED Midlevel Provider: Mica Díaz ED Provider: Emperatriz Craig Dx/Rx/DC Orders Clinical Impression: Abdominal ascites, UTI (urinary tract infection), Hepatitis C, chronic, Cirrhosis of liver, Encephalopathy, hepatic Primary Care Provider: Dacia Acosta Disposition Disposition: Acute Care Hospital [facility] What to do if you have Problems For any increased pain, shortness of breath, bleeding, nausea or vomiting, chestpain, or any unexpected problems, contact your Primary Care Provider. Call [facility] ([phone]) or report to the closest Emergency Room. Call 911 if necessary. 12/04/232033 <Electronically signed by Emperatriz Craig MD> Cosigner Signature (if applicable): 12/04/232104 <Electronically signed by Mica GARCIA> CC: Dr. Dacia Acosta MD ~ Signed [facility] Work Phone: 1(750) 122-363903-10-2024 Discharge summary Author Mica Díaz [facility] December 04, 2023 9:05pm Note Date/Time December 04, 2023 6:1 5pm [facility] Medical Records Department [address] [place] [address] Emergency Department Summary 12/04/23 MR#: [id number] Acct: [id number] Name: CAROLINA IHGHTOWER Rep #:[id number] : 1975 48 From: Emperatriz Craig MD PCP: Dr. Dacia Acosta MD Status:AD M IN Location: [facility] [id number] <Statement entered by Emperatriz Craig MD - 12/04/23 20:33> I have personally performed a face to face assessment of the patient and have reviewed the DARWIN Note. Patient seen and evaluated secondary to lower abdominal pain. She has a historyof cirrhosis with recurrent ascites. She last had paracentesis about 2 weeks ago. She states that she was given Macrobid for UTI, but it made her abdominal pain worse so she stopped taking it. Patient lying in bed in no acute distress, but does appear uncomfortable. Head and neck examination unremarkable. Heart is regular rate and rhythm. Lung sounds are clear. Abdomen is distended. Mild diffuse tenderness. No guarding or rebound. Lab work reviewed. Patient has chronic changes to her liver and ammonia. She does have evidence of UTI. CT scan does reveal recurrent ascites. Patient given IV antibiotics for her UTI. We discussed case with Dr. Porras, her GI specialist as well as hospitalist for admission. HPI History of Present Illness Chief Complaint: Complaint Narrative Narrative: Patient presenting today due to nausea and generalized abdominal pain that she has had over the past 2 days. She reports that she has also had dysuria over the past several days and was placed on Macrobid about a week ago by her PCP buthas not been compliant with taking this due to fears that will make her abdominal pain worse. She does have a history of hepatitis C, liver cirrhosis, and ascites. She last had a paracentesis a few weeks ago. She reports that sheis not sure if she has been taking her lactulose correctly or not but is feelingconfused. She has had decreased appetite due to her abdominal pain. She deniesfevers, chills, and vomiting. PFSH PFSH Medical History Acute insomnia Alcohol abuse Anemia Anxiety and depression Ascites Chronic pain Cirrhosis of liver COPD (chronic obstructive pulmonary disease) Depression Gastric reflux GERD (gastroesophageal reflux disease) Hepatitis History of diverticulitis History of edema History of pain when walking History of renal disease Hyperbilirubinemia Kidney stones Loss of consciousness Low iron Marijuana use Migraine headache MRSA infection Obesity Open wound Polysubstance abuse Rash Restless legs Seizures Shortness of breath on exertion Sleep apnea Smoker Substance abuse Thrombocytopenia Tobacco use Home Medications Vitamin D3 1,250 mcg OTHER QWEEK SUPPLEMENT 05/20/22 [History Last Taken Unknown] gabapentin 100 mg capsule 100 mg PO Q12H 07/20/23 [History Last Taken Unknown] furosemide 20 mg tablet (Lasix) 20 mg PO DAILY #90 tabs 10/07/23 [Rx Last Taken 11/09/23] lactulose 20 gram/30 mL oral solution 20 g (30 mL) PO TID 30 days #2,880 mL 10/07/23 [Rx Last Taken Unknown] spironolactone 50 mg tablet 75 mg (1.5 x 50 mg) PO DAILY #45 tabs 11/05/23 [Rx Last Taken Unknown] albuterol sulfate 90 mcg/actuation aerosol inhaler (Ventolin HFA) 2 puff inhalation Q4H PRN PRN shortness of breath or wheezing 12/04/23 [History Last Taken Unknown] ascorbate calcium (vitamin C) 500 mg tablet 500 mg PO DAILY 12/04/23 [History Last Taken Unknown] ferrous sulfate 325 mg (65 mg iron) tablet (FeroSul) 325 mg PO DAILY 12/04/23 [History Last Taken Unknown] Allergy/AdvReac Type Severity Reaction Status Date / Time bupropion HCl Allergy SEIZURES Verified 12/04/23 16:48 [From Wellbutrin] codeine Allergy Rash Verified 12/04/23 16:48 Family History Mother Diabetes Father Cancer HX Throat CA. 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, marijuana, heroin and methamphetamine seatbelt use: always do you feel safe at home: Yes ROS ROS ED Constitutional Constitutional ED: Denies chills or fever(s) Cardiovascular Cardiovascular: Denies chest pain Respiratory/Chest Respiratory/Chest: Denies cough or dyspnea Gastrointestinal Gastrointestinal: Reports abdominal pain and nausea; Denies diarrhea or vomiting Genitourinary Genitourinary ED: Reports dysuria; Denies hematuria Musculoskeletal Musculoskeletal: Denies arthralgias or myalgias Integumentary Denies rash Neurologic Neurologic: Reports confusion; Denies weakness EXAM Physical Exam Const Vital Signs: 12/04/23 16:48 12/04/23 20:09 12/04/23 20:10 Temperature 96.4 F L 97.8 F 97.8 F Temperature Source Temporal Oral Pulse Rate 81 74 74 Respiratory Rate 18 20 H 20 H Blood Pressure 127/83 H 119/75 119/75 Blood Pressure Mean 97 89 89 Pulse Ox 97 100 100 Oxygen Delivery Method Room Air Room Air Positive well nourished, well developed and no apparent distress General Appearance ED: well developed HEENT Reports normocephalic and head/scalp atraumatic Mouth ED: Yes moist mucous membranes normal Eyes PERRL and EOMs intact bilaterally Neck full ROM and supple Chest Wall inspection of chest normal Resp normal respiratory effort and clear to auscultation bilaterally Cardio regular rate and regular rhythm GI soft to palpation, non-tender and no masses GI Narrative: Abdominal distention with ascites. Back/Spine normal ROM and normal to inspection Extremity normal to inspection and full ROM Neuro oriented x3, CN's II-XII intact bilaterally, moves all extremities, no focal motor deficits and no sensory deficits noted Sensorium / Orientation: awake and alert Psych mental status grossly normal and thought process normal Skin no rashes or lesions noted and no wounds MDM MDM MDM Narrative Medical decision making narrative: Patient presenting today due to abdominal pain, ascites, concerns for UTI. She is on Macrobid from her PCP but has not been taking this regularly due to concerns that would make her abdominal pain worse. She reports that she has hadsome intermittent confusion, she thinks she is taking her lactulose daily but isnot sure. She does seem to have slight confusion on exam. Workup will be obtained. She does appear to have a UTI, ammonia level is elevated compared to previous visit. CT of the abdomen and pelvis obtained to rule out abdominal etiology, this does show ascites, portal hypertension, nonobstructing kidney stone. She will be given Rocephin for her UTI and IV analgesia. I do think she would benefit from a paracentesis and given her confusion, there are concerns for hepatic encephalopathy. I did discuss this with Dr. Porras, he recommends paracentesis. I will discuss the case with the hospitalist and she will be admitted in stable condition. Lab Data Attestation: I reviewed the patient's lab results. Lab results narrative: H&H of 8.9, 30.2, bilirubin 2.1, AST 58, alkaline phosphatase 143 Labs: Laboratory Results - last 24 hr 12/04/23 12/04/23 17:25 17:51 WBC 6.1 RBC 3.68 L Hgb 8.9 L Hct 30.2 L MCV 82.1 MCH 24.2 L MCHC 29.5 L RDW Std Deviation 79.4 H RDW Coeff of Katalina 27.1 H Plt Count 87 L MPV 9.5 Immature Gran % (Auto) 0.300 Neut % (Auto) 62.4 Lymph % (Auto) 23.3 Coos % (Auto) 10.7 H Eos % (Auto) 2.3 Baso % (Auto) 1.0 Absolute Neuts (auto) 3.8 Absolute Lymphs (auto) 1.43 Nucleated RBC % 0 Differential Comment SCANNED Hypochromasia 1+ Anisocytosis 2+ Microcytosis 1+ Macrocytosis 1+ Target Cells RARE PT 20.0 H INR 1.7 Sodium 142 Potassium 4.0 Chloride 110 H Carbon Dioxide 27.0 Anion Gap 5 BUN 10 Creatinine 0.82 Estim Creat Clear Calc 83.21 Est GFR (MDRD) Af Amer 95 Est GFR (MDRD) Non-Af 79 BUN/Creatinine Ratio 12.2 Glucose 117 H Calcium 8.4 L Phosphorus 2.3 L Magnesium 1.6 Total Bilirubin 2.10 H AST 58 H ALT 47 Alkaline Phosphatase 143 H Ammonia 45.0 H Total Protein 7.3 Albumin 2.2 L Globulin 5.1 H Albumin/Globulin Ratio 0.4 L Lipase 30 Urine Color Yellow Urine Clarity Sl. Cloudy Urine pH 6.5 Ur Specific [place] 1.015 Urine Protein 30 H Urine Glucose (UA) Normal Urine Ketones 15 H Urine Occult Blood 50 H Urine Nitrite Positive H Urine Bilirubin 3 H Urine Urobilinogen 8 H Ur Leukocyte Esterase 500 H Urine RBC 5-10 SEEN Urine WBC 25-50 SEEN Ur Squamous Epith Cells 0-5 SEEN Amorphous Sediment 1+ URATE Urine Bacteria RARE Urine Mucus 0 SEEN Radiography Diagnostic Testing: Clinical Impression(s) from Imaging Studies Abdomen/Pelvis CT 12/04/23 17:14 IMPRESSION: 1. 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 2. Diffuse abdominal ascites. 3. Splenomegaly. 4. Hepatic cirrhosis. 5. Portal hypertension. 6. Nonobstructive right renal stones measuring up to 10 mm. Electronically Signed: Tejas Bhakta MD at 19:07 EDT Reading Location ID and State: [facility] / [place] , Service support , Discharge Plan Triage Chief Complaint: Complaint Other Complaint: Abd Pain ED Midlevel Provider: Mica Díaz ED Provider: Emperatriz Craig Dx/Rx/DC Orders Clinical Impression: Abdominal ascites, UTI (urinary tract infection), Hepatitis C, chronic, Cirrhosis of liver, Encephalopathy, hepatic Primary Care Provider: Dacia Acosta Disposition Disposition: Acute Care Hospital [facility] What to do if you have Problems For any increased pain, shortness of breath, bleeding, nausea or vomiting, chestpain, or any unexpected problems, contact your Primary Care Provider. Call [facility] ([phone]) or report to the closest Emergency Room. Call 911 if necessary. 12/04/232033 <Electronically signed by Emperatriz Craig MD> Cosigner Signature (if applicable): 12/04/232104 <Electronically signed by Mica GARCIA> CC: Dr. Dacia Acosta MD ~ Signed [facility] Work Phone: 1(818) 784-358003-04-2024 Miscellaneous Notes* Telephone Encounter - Melisa Vick Ma - 11/28/2023 3:52 PM EST Pt notified. Melisa Vick Ma * Telephone Encounter - Dacia Acosta MD - 11/28/2023 3:45 PM EST Her urine test does show infection, so I have ordered 7 days of Macrobid for her. Dacia Acosta MD * Telephone Encounter - Vanessa Babcock RN - 11/28/2023 3:40 PM EST Patient calling and asking about urine results. Please review and advise, Vanessa Babcock RN documented in [facility] encounter[facility] History of Present illness Narrative* Dacia Acosta MD - 11/26/2023 10:20 AM EST Transitional Care Management TCM Eligibility Documentation Program: Transitional Care Management Status: Pending (at least 2 unsuccessful call attempts) Start Date: 11/23/2023 Responsible Staff: Priscilla Del Angel RN Discharge date: 11/23/2023 (Program start) Date of initial contact: Initial contact Target status: No contact; Completed at least 2 attempts within 2 business days post-discharge Provider Documentation Carolina Hightower is a 48 year old female here today for a follow up from recent hospitalization. I have reviewed the patient's hospital course including discharge summary, discharge medications , followup needs, and labs (notable for elevated WBC, anemia, thrombocytopenia) with the patient. HPI History reviewed. Pt here today for a 7 day [facility] Hospital follow up. Pt admitted into [facility] on 11/18/23 for abdominal pain and [...] them. Pt states she does not know wh at she's taking, she was previously on Buspar [...] Zofran 4 mg and Protonix 20 mg bid.States she has not f/u with GI in a while, but has an appt Friend at the end of this month. Breathing [...] year [facility], for further evaluation of abdominal pain and distention. Patient has known cirrhosis. Recently, she has been evaluated multiple times at [facility] for similar symptoms. Paracentesis has been performed Upon arrival to the emergency department yesterday the patient was found to be hemodynamically stable. Laboratory workup was largely unrevealing. Of important note, an ammonia level was unable to be obtained at that facility. Abdominal imaging was not obtained either. During hospital stay, patient would be evaluated by infectious disease for concern for SBP. Patientwould be continued on IV Rocephin for 7 [...] stable on discharge. Patient understood and agreed withdischarge plan. Plan *Suspected SBP, continue IV Rocephin [...] IV Rocephin tomorrow, patient had paracentesis in [facility] without any significant results, he had [...] month Dacia Acosta MD documented in this encounterGalion [facility]03-02-[facility]24 NoteHNO ID: [id number] Author: DACIA ACOSTA MD Service: ? Author Type: Physician Type: Progress Notes Filed: 11/26/2023 11:03 Note Text: Transitional Care Management [facility] Eligibility Documentation Program: Transitional Care Management Status: Pending (at least 2 unsuccessful call attempts) Start Date: 11/23/2023 Responsible Staff: Priscilla Del Angel RN Discharge date: 11/23/2023 (Program start) Date of initial contact: Initial contact Target status: No contact; Completed at least 2 attempts within 2 business days post-discharge Provider Documentation Carolnia Hightower is a 48 year old female here today for a follow up from recent hospitalization. I have reviewed the patient's hospital course including discharge summary, discharge medications , follow up needs, and labs (notable for elevated WBC, anemia, thrombocytopenia) with the patient. HPI History reviewed. Pt here today for a 7 day [facility] Hospital follow up. Pt admitted into [facility] on 11/18/23 for abdominal pain and [...] a while, but has an appt Dr. Friend at the end of this month. Breathing [...] year old female who presented to an [facility] emergency department yesterday, November 17, 2023, for further evaluation of abdominal pain and distention. Patient has known cirrhosis. Recently, she has been evaluated multiple times at [facility] for similar symptoms. Paracentesis has been [...] IV Rocephin tomorrow, patient had paracentesis in [facility] without any significant results, he had [...] Cuff Size: Regular Adult) (more content not included)...[facility]03-01-2024 NoteHNO ID: [id number] Author: PRISCILLA DEL ANGEL RN Service: ? Author Type: Registered Nurse Type: Progress Notes Filed: 11/28/2023 16:10 Note Text:[facility]03-01-2024 History of Present illness Narrative* Priscilla Del Angel RN - 11/25/2023 11:25 AM EST documented in this encounterGalion [facility] Hospital03-01-2024 NotePatient Outreach ([facility]) CAROLINA HIGHTOWER ([id number]) 1975 F Date Time Provider Department 11/25/23 PRISCILLA DEL ANGEL [facility] During your visit today, we recorded the following information about you: Priscilla Del Angel RN 11/28/2023 4:10 PM Signed Allergies As of Date: 11/25/2023 Noted Allergy Reaction ASPIRIN 06/02/2005 Comments: UNCERTAIN =CHILDHOOD BUPROPION 06/11/2019 14 - Other: See Comments CODEINE 06/02/2005 2 - Rash PREDNISONE 06/19/2019 2 - Rash WELLBUTRIN (BUPROPION HCL) 09/29/2012 14 - Other: See Comments Comments: seizures Date Reviewed: 11/22/2023 Reviewed by: Tnag, Aurora M, RN - Fully Assessed Prescriptions as of [...] F17.2 [F17.200] 11/20/2023 Encounter Status:Closed by PRISCILLA DEL ANGEL on 11/28/23[facility] History of Present illness Narrative* Soco Medina [facility] - 11/24/2023 9:21 AM EST TRANSITION CARE MANAGEMENT (TCM) PHARMACY CONTACT Provider Action/FYI: Unable to reach patient after unsuccessful outreach attempt(s). TCM medication reconciliation incomplete at this time. VM full Patient unable to be reached after unsuccessful outreach attempt(s). No further attempts to contactpatient will be made. SUMMARY: -Pt discharged from [facility] on 11/23/23. -Medication review not done [...] she has been evaluated multiple times at [facility] for similar symptoms. Paracentesis has been performed Upon arrival to the emergency department yesterday the patient was found to be hemodynamically stable. Laboratory workup was largely unrevealing. Of important note, an ammonia level was unable to be obtained at that facility. Abdominal imaging was not obtained either. During hospital stay, patient would be evaluated by infectious disease for concern for SBP. Patientwould be continued on IV Rocephin for 7 [...] stable on discharge. Patient understood and agreed withdischarge plan. ADMISSION PHYSICAL EXAM: General: alert and [...] IV Rocephin tomorrow, patient had paracentesis in [facility] without any significant results, he had [...] as instructed every 4 hours as needed. [facility] [place] ascorbic acid, vitamin C, (VITAMIN C) 500 mg tablet Take 1 tablet by mouth once daily. [facility] [place] Discontinued: 11/17/2023 7:36 PM NO RECENT DISPENSES Discontinued: 11/17/2023 7:36 PM NO RECENT DISPENSES Discontinued: 11/17/2023 7:36 PM NO RECENT DISPENSES Discontinued: 11/17/2023 7:36 PM NO RECENT DISPENSES ferrous sulfate 325 mg (65 mg iron) tablet Take 1 tablet by mouth once daily. [facility] [place] furosemide (LASIX) 20 mg tablet Take 1 tablet by mouth once daily. gabapentin (NEURONTIN) 100 mg capsule Take 1 capsule by mouth twice daily for 180 days. hydrOXYzine HCl (ATARAX) 25 mg tablet Take 1 tablet by mouth every 8 hours as needed. e- [facility] [place] Per AVS Patient will also be started [...] 1 tablet once daily for 3 days. [facility] [place] #18 tabs spironolactone (ALDACTONE) 50 mg tablet Take 1 tablet by mouth once daily. [facility] [place] Potassium Date Value Ref Range Status 11/23/2023 4.2 3.5 - 5.1 mmol/L Final Discontinued: 11/17/2023 7:37 PM NO RECENT DISPENSES Discontinued: 11/17/2023 7:37 PM NO RECENT DISPENSES Preferred pharmacy: [facility] [place] [id number] - [address] [facility] [phone] [address] [facility] [address] [employer] [facility] [address] - [place] [id number] - [address] - [phone] [address] [facility] [address] Estimated Creatinine Clearance: 85.8 mL/min (based on SCr of 0.78 mg/dL). Estimated Glomerular Filtration Rate (mL/min/1.73m ) Date Value 11/23/2023 93 eGFR- (no units) Date Value 06/24/2021 >60 Additional follow up: Next 5 Appointments None Interventions Made: None Pharmacist Recommendations Made None Care Coordination: None at this time Time spent on patient: 15-30 minutes Soco Medina RPh November 24, 2023 9:21 AM documented in [facility]29[facility]24 NoteHNO ID: [id number] Author: SOCO MEDINA RPh Service: ? Author Type: Pharmacist Type: Progress Notes Filed: 11/24/2023 15:30 Note Text: TRANSITION CARE MANAGEMENT (TCM) PHARMACY CONTACT Provider Action/FYI: Unable to reach patient after unsuccessful outreach attempt(s). TCM medication reconciliation incomplete at this time. VM full Patient unable to be reached after unsuccessful outreach attempt(s). No further attempts to contact patient will be made. SUMMARY: -Pt discharged from [facility] on 11/23/23. -Medication review not done [...] she has been evaluated multiple times at [facility] for similar symptoms. Paracentesis has been [...] IV Rocephin tomorrow, patient had paracentesis in [facility] without any significant results, he had [...] as instructed every 4 hours as needed. [employer] [facility] - [place] ascorbic acid, vitamin C, (VITAMIN C) 500 mg tablet Take 1 tablet by mouth once daily. [employer] [facility] - [place] Discontinued: 11/17/2023 7:36 PM NO RECENT DISPENSES Discontinued: 11/17/2023 7:36 PM NO RECENT DISPENSES Discontinued: 11/17/2023 7:36 PM NO RECENT DISPENSES Discontinued: 11/17/2023 7 (more content not included)...[facility]02-29-2024 NotePatient Outreach (PHRXRF) CAROLINA HIGHTOWER ([id number]) 1975 F Date Time Provider Department 11/24/23 SOCO MEDINA PHRXRF During your visit today, we recorded the following information about you: Soco Medina RPh 11/24/2023 3:30 PM Signed TRANSITION CARE MANAGEMENT (TCM) PHARMACY CONTACT Provider Action/FYI: Unable to reach patient after unsuccessful outreach attempt(s). TCM medication reconciliation incomplete at this time. VM full Patient unable to be reached after unsuccessful outreach attempt(s). No further attempts to contact patient will be made. SUMMARY: -Pt discharged from [facility] on 11/23/23. -Medication review not done [...] she has been evaluated multiple times at [facility] for similar symptoms. Paracentesis has been [...] IV Rocephin tomorrow, patient had paracentesis in [facility] without any significant results, he had [...] as instructed every 4 hours as needed. [employer] [employer] [facility] - [place] ascorbic acid, vitamin C, (VITAMIN C) 500 mg tablet Take 1 tablet by mouth once daily. [facility]- [employer] [facility] - [place] Di (more content not included)...[facility]02-28-2024 NoteHNO ID: [id number] Author: AR PIERCE RN Service: Care Management [...] list of mental health facilities in the [place] area. Denies any other needs. Case closed. SIGNATURE: Ar Pierce RN PATIENT NAME: Carolina Hightower DATE: November 23, 2023 TIME: 2:11 PM CONTACT #: [phone] NoteHNO ID: [id number] Author: AMOR HERNANDEZ MD Service: Hospital Medicine [...] sepsis from SBP, patient had paracentesis at [facility] ER several days ago, today abdominal [...] affect. DATA: LABORATORY TESTS: CBC: Recent Labs 11/22/23 0450 11/21/23 0440 11/20/23 0357 11/19/23 0349 11/17/232007 WBC 12.59* 17.88* 15.65* < > 11.50* [...] this interval not displayed. CHEM: Recent Labs 11/22/23 0450 11/21/23 0440 11/20/23 035 NA 136 137 133* K 4.4 4.6 [...] VTE Prophylaxis/Anticoagulants 11/18/231744 vte current anticoag therapy (az,ar) 11/18/231744 activity - mobilize patient (az,ar) VTE Prophylaxis: VTE prophylaxis appropriate Assesment: Suspected [...] was reviewed. Patient sti (more content not included)...[facility]02-27-2024 NoteHNO ID: [id number] Author: AR PIERCE RN Service: Care Management [...] Home Advance Directives Current Advance Directive: None [employer]ator Attempted to Assist with AD Completion: Yes Action: Patient Unwilling Current Living Arrangements and Support Lives with: Spouse/significant other Type of Residence: Private Residence (House) Does the patient have to climb stairs at home?: Yes;stairs outside the home;stairs within the home Support: Spouse/significant other How do you manage to accomplish the following: Independent: Ambulation;Bathe/Shower;Dress;Meals/Meal Prep;Going to the bathroom;Medication Management Needs Assistance: Transportation to appointments/community Current Services/Equipment Current Post-Acute Service(s): None Discharge Planning Patient Goal(s): Be able to go home, General wellness Salome of Choice Explained: Salome of Choice Given: No Reason Not Given: [...] abdominal pain and distention.Was a transfer from [facility], went to the ICU after a rapid response. Discharge plan to return to home, lives with significant other. They rent a room off of some friends, has bathroom and kitchen privileges. Neither of them drive, usually walks, uses insurance for doctor visits, or friends transport. She quit taking her medications 6 months ago along with mental health services at [facility]. She would like information on services in [facility] for mental health. She states she can use her insurance for the appointments. Will give her the information. She is unsure she will need transportation to home. Will continue to follow. SIGNATURE: Ar Pierce RN PATIENT NAME: Carolina Hightower DATE: November 22, 2023 TIME: 7:18 AM CONTACT #: [phone]24 NoteHNO ID: [id number] Author: AMOR HERNANDEZ MD Service: Hospital Medicine [...] sepsis from SBP, patient had paracentesis at [facility] ER several days ago, today complaining [...] PCGLUCOSE 103* LABORATORY TESTS: CBC: Recent Labs 11/21/23 0440 11/20/23 0357 11/19/23 0349 11/17/232007 WBC 17.88* 15.65* 13.45* 11.50* HB 8.2* [...] CREAT 0.73 0.95 0.68 HEPATIC: Recent Labs 11/20/2335611/19/2334811/17/232007 ALT 32 31 29 AST 76* 65* [...] VTE Prophylaxis/Anticoagulants 11/18/231744 vte current anticoag therapy (az,ar) 11/18/231744 activity - mobilize patient (az,ar) VTE Prophylaxis: VTE prophylaxis appropriate Assesment: Suspected [...] taper down steroids, contin (more content not included)...[facility] 11-20-2023 NoteHNO ID: [id number] Author: MARIAH STEWART MD Service: Critical Care Author Type: Physician Type: Progress Notes Filed: 11/20/2023 15:28 Note Text: [facility] STAFF PHYSICIAN NOTE OF PERSONAL INVOLVEMENT IN CARE I have reviewed the progress note obtained and documented by the DARWIN. I have personally performed a face to [...] any new critical care needs. SIGNATURE: Mariah Stewart MD [facility] DATE of SERVICE: 11/20/2023[facility] NoteHNO ID: [id number] Author: MARIAH TRAVIS APRN.COMMUNITY SERVICE OFFICER Service: Critical Care Author Type: Nurse Practitioner Type: Progress Notes Filed: 11/20/2023 10:02 Note Text: PULMONARY/CRITICAL CARE INTENSIVE MEDICAL/SURGICAL CARE UNIT PROGRESS NOTE Patient Name: Carolina Hightower Account #: Data Unavailable Admission Date: 11/18/2023 Date of Evaluation: 11/20/2023 Time of Evaluation: 9:44 AM SUBJECTIVE Transferred from [place] for paracentesis. Treated for COPD exacerbation with hypercapnia. Improved today, mentation improved. Complaining of headache. Plan for paracentesis tomorrow. Tolerating a diet, no nausea vomiting diarrhea. VITALS 11/20/23 0700 11/20/23 0800 11/20/23 0827 11/20/23 0900 BP: 113/55 120/70 120/70 128/76 Pulse: 66 82 66 (!) 59 Resp: 13 13 22 Temp: 36.6 ?C (97.9 ?F) TempSrc: Oral [...] on 11/01/2023) LABORATORY TESTS: CBC: Recent Labs 11/20/2335611/19/2334811/17/232007 WBC 15.65* 13.45* 11.50* HB 8.3* 9.4* [...] and hypercapnia Toxic metabolic (more content not included)...[facility]02-24-2024 NoteHNO ID: [id number] Author: MARIAH STEWART MD Service: Critical Care Author Type: Physician Type: Progress Notes Filed: 11/19/2023 13:58 Note Text: [facility] STAFF PHYSICIAN NOTE OF PERSONAL INVOLVEMENT IN CARE I have reviewed the consult note obtained and documented by the DARWIN. I have personally performed a face to [...] of care, medical plan for the day, renewable energy consultant recommendations, medical disposition and current medical [...] critical care services: 35 minutes. SIGNATURE: Mariah Stewart MD [facility] DATE of SERVICE: 11/19/2023[facility]02-24[facility]24 NoteHNO ID: [id number] Author: NILA MOLINA MD Service: Hospital Medicine [...] and diffuse tenderness. Patient was transferred to [facility] for further care. At the time of this documentation, the HANDP by the admitting provider is pending. A rapid was called overnight on November 19 for this patient and the sound DARWIN responded to the patient and updated me [...] leg: No edema. Labs: CBC: Recent Labs 11/19/23 03411/17/232007 WBC 13.45* 11.50* HB 9.4* 10.3* HCT 30.3* 33.8* PLT 80* 112* MCV 76.1* 77.7* RDWCV 24.2* 23.6* NEUTP -- 64.9 ABSNEUT -- 7.47 LYMPHP -- 21.1 MONOP -- 12.2 EODINP -- 0.8 COAG: No results for input(s): APTT, INR in the last 168 hours. BMP: Recent Labs 11/19/23 03411/17/232007 GLUC 89 121* NA 137 134* K [...] 0-5 /HPF CARDIAC: No results for input(s): CKTEST, CKMB, CKMBP in the last 168 hours.TROPONIN@:8,No results found for: BNP:8)@ No intake or output data in the 24 hours ending 11/19/23 07 Serum creatinine: 0.68 mg/dL 11/19/23348 Estimated creatinine clearance: 100.6 mL/min Imaging: CT [...] aware of the patient per sound night DARWIN Repeat lactate level and procalcitonin in process [...] Acute hypoxemic respiratory failu (more content not included)...[facility]02-24-2024 NoteHNO ID: [id number] Author: JONATHAN RODAS RN Service: Nursing Author Type: Registered Nurse Type: Nursing Progress Note Filed: 11/19/2023 07:36 Note Text: Rapid response called at this time. See rapid response flow sheet and provider note.[facility]02-16-2024 Miscellaneous Notes* Telephone Encounter - Melisa Vick Ma - 11/11/2023 1:33 PM EST Pt notified. She was told her appt with us will be cancelled and to go to ER for care. Melisa Vick Ma * Telephone Encounter - Dacia Acosta MD - 11/11/2023 11:58 AM EST With severe abdominal pain she is better off going to the ER, I am limited in what I can do to evaluate and treat her pain. Dacia Acosta MD * Telephone Encounter - Janna Rao RN - 11/11/2023 10:29 AM EST Patient calling in to make ER F/U appt with Dr. Acosta. Appt has been made for today at 3:40pm with PCP per her request. She states she has to notify a cab for transportation and hopes to be at appt today. During call, patient noted to sound short of breath, hoarse voice and tearful. Reports she is having excruciating belly pain. Reports she has been to [facility] ER 3 times in last week. States if she goesback to the ER now, they will just [...] Provider. Patient unable to confirm any upcoming [facility] appt as of now. This nurse attempted to contact [facility] x 3-no answer at this time and voicemail asks to leave message and they will return call within 24 hours. Pt asking if she must go back to [facility] ER now or can she try to come to her ER F/U appt with Dr. Bell this afternoon? Thank you. documented in this encounterGalion [facility]02-12-2024 Miscellaneous Notes* Telephone Encounter - Dacia Acosta MD - 11/07/2023 5:58 PM EST Noted Dacia Acosta MD * Telephone Encounter - Jesi Jason LPN - 11/07/2023 4:21 PM EST Pt calls to report she went to [facility] ER today for abdominal pain and bloating. Pt reports her abdomenwas drained. PT calls and states the following: [...] no Jesi Jason LPN documented in this encounterGalion Community Hospital02-12-2024 Discharge summary Author Yimi Hutchinson [facility] November 07, 2023 10:34am Note Date/Time November 07, 2023 7:34am [facility] Medical Records Department [address] [place] [address] Emergency Department Summary 11/07/23 MR#: [id number] Acct: [id number] Name: CAROLINA HIGHTOWER Rep #:[id number] : 1975 48 From: Yimi Bender PCP: Dr. Dacia Acosta MD Status:RE G ER Location: ED HPI History of Present Illness Chief Complaint: Abd Pain PFSH PFSH Medical History Acute insomnia Alcohol abuse Anemia Anxiety and depression Ascites Chronic pain Cirrhosis of liver COPD (chronic obstructive pulmonary disease) Depression Gastric reflux GERD (gastroesophageal reflux disease) Hepatitis History of diverticulitis History of edema History of pain when walking History of renal disease Hyperbilirubinemia Kidney stones Loss of consciousness Low iron Marijuana use Migraine headache MRSA infection Obesity Open wound Polysubstance abuse Rash Restless legs Seizures Shortness of breath on exertion Sleep apnea Smoker Substance abuse Thrombocytopenia Tobacco use Home Medications desvenlafaxine 100 mg tablet,extended release 24 hour 100 mg PO DAILY NERVE PAIN02/20/19 [History Last Taken Unknown] Vitamin D3 1,250 mcg OTHER QWEEK SUPPLEMENT 05/20/22 [History Last Taken Unknown] topiramate 100 mg tablet 100 mg PO BID PER GASTRO 05/20/22 [History Last Taken Unknown] trazodone 100 mg tablet 100 mg PO QHS SLEEP #1 TAB 05/21/22 [Rx Last Taken Unknown] aripiprazole 30 mg tablet 30 mg PO DAILY 09/14/22 [History Last Taken Unknown] gabapentin 100 mg capsule 100 mg PO Q12H 07/20/23 [History Last Taken Unknown] furosemide 20 mg tablet (Lasix) 20 mg PO DAILY #90 tabs 10/07/23 [Rx Last Taken Unknown] lactulose 20 gram/30 mL oral solution 20 g (30 mL) PO TID 30 days #2,880 mL 10/07/23 [Rx Last Taken Unknown] nadolol 20 mg tablet 20 mg PO DAILY 30 days #30 tabs 10/07/23 [Rx Last Taken Unknown] spironolactone 50 mg tablet 75 mg (1.5 x 50 mg) PO DAILY 30 days #45 tabs 10/07/23 [Rx Last Taken Unknown] furosemide 20 mg tablet (Lasix) 20 mg PO DAILY #30 tabs 11/05/23 [Rx Last Taken Unknown] nadolol 20 mg tablet 20 mg PO DAILY #30 tabs 11/05/23 [Rx Last Taken Unknown] spironolactone 50 mg tablet 75 mg (1.5 x 50 mg) PO DAILY #45 tabs 11/05/23 [Rx Last Taken Unknown] cephalexin 500 mg capsule 500 mg PO TID 7 days #21 caps 11/07/23 [Rx Last Taken Unknown] Allergy/AdvReac Type Severity Reaction Status Date / Time bupropion HCl Allergy SEIZURES Verified 11/05/23 18:47 [From Wellbutrin] codeine Allergy Rash Verified 11/05/23 18:47 Family History Mother Diabetes Father Cancer HX Throat CA. 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, marijuana, heroin and methamphetamine seatbelt use: always do you feel safe at home: Yes EXAM Physical Exam Const Vital Signs: 11/07/23 07:23 11/07/23 07:25 Temperature 98.2 F Temperature Source Temporal Pulse Rate 65 Respiratory Rate 14 Respiratory Effort Short of Breath Blood Pressure 129/68 H Blood Pressure Mean 88 Pulse Ox 100 Oxygen Delivery Method Room Air Room Air [facility] Narrative Medical decision making narrative: HISTORY OF PRESENT ILLNESS: 48-year-old female presents abdominal pain and bloating. States she has been having 3 days of increasing abdominal pain and bloating. States she is prescribed multiple medications but has not been taking them. States she has had multiple paracenteses in the past. She denies any fever or vomiting. Denies any urinary complaints. Last bowel was yesterday. No melena hematochezia. No falls or recent trauma to the abdomen. No chest pain or shortness of breath endorsed. Endorses urinary frequency, endorses pain with urination. REVIEW OF SYSTEMS: Pertinent positives: Abdominal pain, bloating, urinary frequency, painful urination Pertinent negatives: Fever, vomiting, chest pain, shortness of breath, melena, hematochezia, urinary complaints, vaginal bleeding or discharge PHYSICAL EXAM: Nursing triage notes reviewed, Vital signs reviewed Constitutional: please see mdm HENT: MMM Eyes: Pupils equal round and reactive to light, Extraocular muscles intact Neck: No stridor, no JVD, full neck ROM Lungs: Clear to auscultation, No wheezing or rales. No increased work of breathing, no conversational dyspnea, no accessory muscle use, no nasal flaring. No respiratory distress noted Heart: Regular rate and rhythm, No murmurs, No rubs and No gallops, 2+ distal pulses (radial, femoral, posterior tibial) in all extremities Abdomen: Significant distention, negative fluid wave no obvious peritoneal signs, no palpable pulsatile abdominal masses, no auscultated abdominal bruit : No CVAT Extremities: No edema Neuro: No focal neurological deficits, cranial nerves II through XII intact, 5/5strength in all extremities. Intact sensation to light touch in all extremities,2+ reflexes bilateral patella tendons. Normal gait. No ataxia. Skin: No rash or lesions noted MEDICAL DECISION MAKING: Chief Complaint: Abdominal pain, bloating External records reviewed: Seen in the ED on 11/05/2023 for similar symptoms. Had an unremarkable lab workup at that time and was discharged home Imaging studies reviewed: Gallbladder ultrasound from 10/07/2023 shows small amount of ascites, gallbladder wall thickening, no gallstones. CT scan abdomen pelvis from 10/06/2023 Shows shows cirrhotic liver. Factors affecting care: Alcohol abuse, COPD, liver cirrhosis, history of diverticulitis, history of kidney stones, history of polysubstance Social determinants of health: Polysubstance abuse, alcohol abuse History obtained from others: none Consults: none [facility] Narrative: Patient was hemodynamically stable, afebrile, nontoxic-appearing. Abdomen was distended but not tense, no fluid wave. No spider angiomata. No specific tenderness just diffusely tender. I considered the following differential diagnosis: SBP, distention from ascites, liver failure, coagulopathy, pancreatitis, med noncompliance I obtained a broad lab workup to further elucidate the etiology of previous complaints. I did perform a bedside paracentesis for diagnostic purposes. Procedure: Paracentesis Indication: Large ascites fluid collection Consent: Verbal Risks explained: Bleeding, infection, bowel injury, and hypotension. Anesthesia: 1% lidocaine with epinephrine. Using ultrasound guidance, a paracentesis needle the left lower quadrant was aspirated. The patient tolerated the procedure well. There were no complications. Fluid: The appearance of the fluid was yellow fluid. The volume that was aspirated was ~1000 cc of fluid. The procedure was performed by Yimi Hutchinson DO ALL IMAGES (IF OBTAINED) HAVE BEEN PERSONALLY REVIEWED AND INTERPRETED BY MYSELF. CBC with no leukocytosis, mild stable anemia, noted thrombocytopenia INR within normal limits no significant coagulopathy there is elevation in PT and PTT consistent with liver disease Urinalysis shows no evidence of urinary inflammation suggestive of UTI Cell count was less than 250 making SBP less likely in addition to this patient did not have leukocytosis or fever Lipase is wnl indicating no pancreatic inflammation. LFTs with baseline liver dysfunction, no signs of decompensated cirrhosis BMP without significant electrolyte abnormality, no BINDU, no anion gap to suggestendorgan hypoperfusion Urinalysis without evidence of obvious infection there is some inflammation in the patient's urine will send for culture as well as provide prophylactic antibiotics Urine test is negative The synthesis of the patient's history, physical exam, labs images Suggest no acute life or limb threatening pathology. Approximate 1 L of ascitic fluid was drained patient reported symptomatic improvement. She was instructed to begin taking her medicine and follow with GI doctor and schedule outpatient paracentesis in the future. Gave Keflex 500 mg 3 times daily for antimicrobial prophylaxis given inflammatory changes seen in the patient's urine sample. Sent urine for culture. The patient and/or family, caregivers express understanding. The patient and/orfamily, caregivers agrees with the plan. Shared decision making: I will have a discussion with the patient and or visitors regarding risk/benefits of further testing or admission. They will be made aware of of the risk/benefits inherent in this decision they will be given the opportunity to voice understanding. Total critical care time today provided was at least 0 minutes. This excludes separately billable procedures. Critical care time (if documented) is secondary to the patient having high probability of clinically significant/life threatening deterioration in the patient's condition which required my urgent intervention. Impression: 1. Abdominal pain 2. History of cirrhosis 3. Med noncompliance 4. Thrombocytopenia 5. Anemia of chronic disease 6. Encounter for paracentesis 7. Ascites Dispo: Discharge home This note was generated with [employer] dictation software. It may contain incorrectwords, spelling, and punctuation that were not noted in review of the chart prior to signing. Lab Data Labs: Laboratory Results - last 24 hr 11/07/23 11/07/23 11/07/23 08:00 08:22 09:00 WBC 3.1 L RBC 4.14 L Hgb 9.5 L Hct 31.6 L MCV 76.3 L MCH 22.9 L MCHC 30.1 L RDW Std Deviation 57.7 H RDW Coeff of Katalina 20.7 H Plt Count 53 L Immature Gran % (Auto) 0.300 Neut % (Auto) 62.0 Lymph % (Auto) 23.6 Coos % (Auto) 9.6 Eos % (Auto) 3.5 Baso % (Auto) 1.0 Absolute Neuts (auto) 2.0 Absolute Lymphs (auto) 0.74 L Nucleated RBC % 0 Platelet Estimate MOD DEC Anisocytosis 2+ PT 21.3 H INR 1.8 APTT 43.8 H Sodium 142 Potassium 3.6 Chloride 113 H Carbon Dioxide 25.0 Anion Gap 4 L BUN 12 Creatinine 0.83 Estim Creat Clear Calc 85.64 Est GFR (MDRD) Af Amer 93 Est GFR (MDRD) Non-Af 77 BUN/Creatinine Ratio 14.4 Glucose 92 Calcium 8.8 Total Bilirubin 2.10 H Direct Bilirubin 1.03 H AST 92 H ALT 51 Alkaline Phosphatase 142 H Total Protein 7.0 Albumin 2.5 L Globulin 4.5 H Lipase 38 Urine Color Yellow Urine Clarity Sl. Cloudy Urine pH 6.0 Ur Specific [place] 1.020 Urine Protein 30 H Urine Glucose (UA) Normal Urine Ketones 5 H Urine Occult Blood 50 H Urine Nitrite Negative Urine Bilirubin Negative Urine Urobilinogen 4 H Ur Leukocyte Esterase 500 H Urine RBC 0-5 SEEN Urine WBC 25-50 SEEN Ur Squamous Epith Cells 5-10 SEEN Urine Bacteria 1+ Urine Mucus 1+ Urine Test Negative Fluid Source OTHER Fluid Color LT YEL Fluid Appearance SL CLDY Fluid WBC 0.133 Fluid Tot Cell Count 0.200 H Fld Polynuclear WBCs # 0.010 Fld Polynuclear WBCs % 7.5 Fluid Mononuclear WBCs 0.123 Fld Mononuclear WBCs % 92.5 Fl Pathologist Comment May follow Treatment and Re-Evaluation :: Repeat abdominal exam showed improvement in abdominal distention. Patient alerted she is asymptomatic and pain is resolved. I suspect her presentation issecondary to ascitic fluid distention. Discharge Plan Triage Chief Complaint: Abd Pain ED Provider: Yimi Hutchinson Dx/Rx/DC Orders Clinical Impression: Ascites Instructions: ED Cirrhosis Prescriptions: New cephalexin 500 mg capsule 500 mg PO TID 7 Days Qty: 21 0RF No Action desvenlafaxine 100 mg tablet extended release 24hr 100 mg PO DAILY Vitamin D3 1,250 mcg OTHER QWEEK Rx Instructions: TAKES ON MODAY BY MOUTH topiramate 100 mg tablet 100 mg PO BID Rx Instructions: BEFORE MEALS trazodone 100 mg tablet 100 mg PO QHS Qty: 1 0RF aripiprazole 30 mg tablet 30 mg PO DAILY nadolol 20 mg tablet 20 mg PO DAILY 30 Days Qty: 30 2RF Rx Instructions: Hold for heart less than 50 or systolic blood pressure less than 100 mmHg. spironolactone 50 mg tablet 75 mg PO DAILY 30 Days Qty: 45 2RF lactulose 20 gram/30 mL solution 20 g PO TID 30 Days Qty: 2880 2RF Rx Instructions: And adjust the frequency to have him goal of 3 bowel movements per day furosemide [Lasix] 20 mg tablet 20 mg PO DAILY Qty: 90 0RF furosemide [Lasix] 20 mg tablet 20 mg PO DAILY Qty: 30 0RF spironolactone 50 mg tablet 75 mg PO DAILY Qty: 45 0RF nadolol 20 mg tablet 20 mg PO DAILY Qty: 30 0RF gabapentin 100 mg capsule 100 mg PO Q12H Patient Comments: Take 1 capsule by mouth twice daily pt taking as needed. Primary Care Provider: Dacia Acosta Referrals: Dacia Acosta MD [Primary Care Provider] - Activity Restrictions/Additional Instructions: Thank you for trusting us with your care today! Please take Tylenol (2 pills, 650 mg), ibuprofen (2 pills, 400 mg) every 6 hoursas needed for pain and fever control. Please take your medicine as prescribed. Please return to the emergency department if your symptoms change or worsen. Please follow with your primary care physician, independent distributor for further outpatient evaluation and management. Disposition Disposition: Home, Self Care What to do if you have Problems For any increased pain, shortness of breath, bleeding, nausea or vomiting, chestpain, or any unexpected problems, contact your Primary Care Provider. Call [facility] ([phone]) or report to the closest Emergency Room. Call 911 if necessary. 11/07/23 1034 <Electronically signed by Yimi Hutchinson DO> Cosigner Signature (if applicable): CC: Dr. Dacia Acosta MD ~ Signed [facility] Work Phone: 1(374) 310-491502-10-2024 Discharge summary Author Jake Harding [facility] November 05, 2023 9:27pm Note Date/Time November 05, 2023 7:33pm [facility] Medical Records Department [address] [place] [address] Emergency Department Summary 11/05/23 MR#: [id number] Acct: [id number] Name: CAROLINA HIGHTOWER Rep #:[id number] : 1975 48 From: Jake Harding MD PCP: Dr. Dacia Acosta MD Status:RE G ER Location: ED HPI HPI - GI History of Present Illness Chief Complaint: Abd Pain Informant: patient Narrative Narrative: Patient presents with chief complaint of, I do not feel well. It takes quite a bit of questioning to try to get details from the patient. Shehas not been feeling well for months. She states she thinks her abdomen needs to be drained. She has a history of cirrhosis. It is thought to be related to alcohol but states she does not drink now. She used to drink when she was younger. She has had a paracentesis about twice. She states last 1 was a monthago. She was admitted. She states they stop some meds and started her on new meds. This confused her so much that she decided she would just stop all her medicines. Therefore she is taken none of her medicines for the last month. She states she has not eaten anything in a few weeks because she cannot eat. When I asked when she last ate she states right before she came in here. No blood in the stool. She gets nauseated but is never vomited. She denies coughing or trouble breathing but states she just does not feel well and her boyfriend is sick with a cough runny nose and fevers. PFSH PFSH Medical History Acute insomnia Alcohol abuse Anemia Anxiety and depression Ascites Chronic pain Cirrhosis of liver COPD (chronic obstructive pulmonary disease) Depression Gastric reflux GERD (gastroesophageal reflux disease) Hepatitis History of diverticulitis History of edema History of pain when walking History of renal disease Hyperbilirubinemia Kidney stones Loss of consciousness Low iron Marijuana use Migraine headache MRSA infection Obesity Open wound Polysubstance abuse Rash Restless legs Seizures Shortness of breath on exertion Sleep apnea Smoker Substance abuse Thrombocytopenia Tobacco use Home Medications desvenlafaxine 100 mg tablet,extended release 24 hour 100 mg PO DAILY NERVE PAIN02/20/19 [History Last Taken Unknown] Vitamin D3 1,250 mcg OTHER QWEEK SUPPLEMENT 05/20/22 [History Last Taken Unknown] topiramate 100 mg tablet 100 mg PO BID PER GASTRO 05/20/22 [History Last Taken Unknown] trazodone 100 mg tablet 100 mg PO QHS SLEEP #1 TAB 05/21/22 [Rx Last Taken Unknown] aripiprazole 30 mg tablet 30 mg PO DAILY 09/14/22 [History Last Taken Unknown] gabapentin 100 mg capsule 100 mg PO Q12H 07/20/23 [History Last Taken Unknown] furosemide 20 mg tablet (Lasix) 20 mg PO DAILY #90 tabs 10/07/23 [Rx Last Taken Unknown] lactulose 20 gram/30 mL oral solution 20 g (30 mL) PO TID 30 days #2,880 mL 10/07/23 [Rx Last Taken Unknown] nadolol 20 mg tablet 20 mg PO DAILY 30 days #30 tabs 10/07/23 [Rx Last Taken Unknown] spironolactone 50 mg tablet 75 mg (1.5 x 50 mg) PO DAILY 30 days #45 tabs 10/07/23 [Rx Last Taken Unknown] furosemide 20 mg tablet (Lasix) 20 mg PO DAILY #30 tabs 11/05/23 [Rx Last Taken Unknown] nadolol 20 mg tablet 20 mg PO DAILY #30 tabs 11/05/23 [Rx Last Taken Unknown] spironolactone 50 mg tablet 75 mg (1.5 x 50 mg) PO DAILY #45 tabs 11/05/23 [Rx Last Taken Unknown] Allergy/AdvReac Type Severity Reaction Status Date / Time bupropion HCl Allergy SEIZURES Verified 11/05/23 18:47 [From Wellbutrin] codeine Allergy Rash Verified 11/05/23 18:47 Family History Mother Diabetes Father Cancer HX Throat CA. 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, marijuana, heroin and methamphetamine seatbelt use: always do you feel safe at home: Yes ROS ROS ED ROS Narrative A complete review of systems was performed and is negative except as documented in the history of present illness. Some specific details below. Constitutional: No recent fevers or chills. She does have some malaise. EYE: No visual complaints or pain. ENT: No difficulty swallowing. No swelling. No pain. No GERD. She states she is physically able to swallow but just does not feel like eating. CV: No chest pain or palpitations. Respiratory: No dyspnea. No hemoptysis. But she states her stomach feels big and it is hard to take a deep breath because of that. But she has no pain with a deep breath. GI: Please see history of present illness. Abdominal distention slowly worsening for the last month. No sudden onset. No sudden pain. She states sometimes it sore but sometimes it is not. : No frequency dysuria or hematuria. Musculoskeletal: No recent trauma. No pains. Skin: No rash. Nondiaphoretic. Neuro: No weakness or numbness. Endocrine: No polyuria or polydipsia. EXAM Physical Exam Narrative Exam Narrative: CONSTITUTIONAL: Patient is nontoxic in appearance. The patient looks comfortable. She is laying almost flat back bent with the head of the bed up about 15 degrees. Breathing normally. HEENT: No notable trauma. Mucous membranes moist. No sinus tenderness. No indication of pain with swallowing. EYES: No conjunctival injection. No noted icterus. CARDIOVASCULAR: Regular rate. Regular rhythm. No notable murmur. No JVD. RESPIRATORY: No respiratory distress. Breathing is unlabored. No wheezes. No rhonchi. No rales. No pain with a deep breath. GASTROINTESTINAL: Abdomen is somewhat distended. But her umbilicus is still deep. Is not at all distended. No vascularity. Bowel sounds are normal. Patient does not have any tenderness. There is absolutely no clinical indication of a spontaneous bacterial peritonitis. GENITOURINARY: No tenderness over the bladder. No CVA tenderness. MUSCULOSKELETAL: Atraumatic. Mild bilateral equal peripheral edema. This is evidently baseline and not worse. No cord. No tenderness along the deep venous system. No asymmetry. NEUROLOGICAL: Patient is alert and appropriate. No focal deficit noted. SKIN: No noted rashes. No diaphoresis. PSYCHIATRIC: Patient is calm. Mood is appropriate. Const Vital Signs: 11/05/23 18:46 Temperature 97.1 F L Temperature Source Temporal Pulse Rate 68 Respiratory Rate 14 Blood Pressure 122/77 H Blood Pressure Mean 92 Pulse Ox 99 Oxygen Delivery Method Room Air MDM MDM MDM Narrative Medical decision making narrative: My independent interpretation of the patient's single view AP chest x-ray shows no acute process. It does not look like a shallow inspiration. Final reading is pending. Final reading is normal examination of the chest. Patient's CBC is at baseline. She is anemic but her white count is normal. Mildly low platelets. But this is not related change from recent tests. Patient's electrolytes show nonspecific elevation of chloride. Renal function is preserved. Glucose is overall normal. Patient's liver function test show mild elevation of alk phos and total bilirubin but again at her baseline. Her lipase is negative. Serum is negative. Urine is not a clean-catch. But there is no's symptoms of UTI or sign of that. There are some calcium oxalate crystals but her symptoms do not match a kidney stone. I do not think she needs an acute CAT scan for oxalate crystals in the urine. I talked with the patient. She is not hypoxic. Her breathing is normal. Her abdomen is nontender. I think if we get her back on her meds we will get her better. I will start her again on furosemide, nadolol and spironolactone. I encouraged her to call her gastroentero [facility]termaker continuous churn Tuesday for follow-up and recheck. Lab Data Attestation: I reviewed the patient's lab results. Labs: Laboratory Results - last 24 hr 11/05/23 11/05/23 19:50 20:10 WBC 5.0 RBC 4.02 L Hgb 9.4 L Hct 31.0 L MCV 77.1 L MCH 23.4 L MCHC 30.3 L RDW Std Deviation 58.3 H RDW Coeff of Katalina 20.6 H Plt Count 69 L MPV 9.9 Immature Gran % (Auto) 0.200 Neut % (Auto) 57.9 Lymph % (Auto) 29.7 Coos % (Auto) 8.4 Eos % (Auto) 3.2 Baso % (Auto) 0.6 Absolute Neuts (auto) 2.9 Absolute Lymphs (auto) 1.48 Nucleated RBC % 0 Differential Comment SCANNED Platelet Estimate MKD DEC Anisocytosis 2+ Microcytosis 2+ PT 19.5 H INR 1.6 Sodium 141 Potassium 3.8 Chloride 114 H Carbon Dioxide 25.0 Anion Gap 2 L BUN 12 Creatinine 0.88 Estim Creat Clear Calc 81.94 Est GFR (MDRD) Af Amer 88 Est GFR (MDRD) Non-Af 73 BUN/Creatinine Ratio 13.7 Glucose 113 H Calcium 9.0 Total Bilirubin 1.80 H AST 98 H ALT 52 Alkaline Phosphatase 139 H Total Protein 6.8 Albumin 2.5 L Globulin 4.3 H Albumin/Globulin Ratio 0.6 L Lipase 45 Serum , Qual NEGATIVE Urine Color Yellow Urine Clarity Sl. Cloudy Urine pH 6.0 Ur Specific [place] 1.025 Urine Protein 30 H Urine Glucose (UA) Normal Urine Ketones 5 H Urine Occult Blood 50 H Urine Nitrite Negative Urine Bilirubin 1 H Urine Urobilinogen 8 H Ur Leukocyte Esterase 100 H Urine RBC 0-5 SEEN Urine WBC 5-10 SEEN Ur Squamous Epith Cells 10-25 SEEN Calcium Oxalate Crystal 2+ Urine Bacteria RARE Urine Mucus 1+ Radiography Diagnostic Testing: Clinical Impression(s) from Imaging Studies Chest X-Ray 11/05/23 20:00 IMPRESSION: Normal x-ray examination of the chest. Electronically Signed: Lori Hallman MD at 20:31 EST , Discharge Plan Triage Chief Complaint: Abd Pain ED Provider: Jake Harding Dx/Rx/DC Orders Clinical Impression: Ascites, Variable compliance with medication therapy, Cirrhosis of liver Instructions: Cirrhosis of Liver Dc, ED Ascites Prescriptions: New furosemide [Lasix] 20 mg tablet 20 mg PO DAILY Qty: 30 0RF spironolactone 50 mg tablet 75 mg PO DAILY Qty: 45 0RF nadolol 20 mg tablet 20 mg PO DAILY Qty: 30 0RF No Action desvenlafaxine 100 mg tablet extended release 24hr 100 mg PO DAILY Vitamin D3 1,250 mcg OTHER QWEEK Rx Instructions: TAKES ON MODAY BY MOUTH topiramate 100 mg tablet 100 mg PO BID Rx Instructions: BEFORE MEALS trazodone 100 mg tablet 100 mg PO QHS Qty: 1 0RF aripiprazole 30 mg tablet 30 mg PO DAILY nadolol 20 mg tablet 20 mg PO DAILY 30 Days Qty: 30 2RF Rx Instructions: Hold for heart less than 50 or systolic blood pressure less than 100 mmHg. spironolactone 50 mg tablet 75 mg PO DAILY 30 Days Qty: 45 2RF lactulose 20 gram/30 mL solution 20 g PO TID 30 Days Qty: 2880 2RF Rx Instructions: And adjust the frequency to have him goal of 3 bowel movements per day furosemide [Lasix] 20 mg tablet 20 mg PO DAILY Qty: 90 0RF gabapentin 100 mg capsule 100 mg PO Q12H Patient Comments: Take 1 capsule by mouth twice daily pt taking as needed. Primary Care Provider: Dacia Acosta Referrals: Dacia Acosta MD [Primary Care Provider] - 3-5 Days Friend,DO Marcelina [Med Staff - Active Staff] - 3-5 Days Disposition Disposition: Home, Self Care What to do if you have Problems For any increased pain, shortness of breath, bleeding, nausea or vomiting, chestpain, or any unexpected problems, contact your Primary Care Provider. Call [facility] ([phone]) or report to the closest Emergency Room. Call 911 if necessary. 11/05/232126 <Electronically signed by Jake Harding MD> Cosigner Signature (if applicable): CC: Dr. Dacia Acosta MD ~ Signed [facility] Work Phone: 1(162) 590-863302-08-2024 Miscellaneous Notes* Telephone Encounter - Zakia Hughes RN - 11/03/2023 3:56 PM EST Patient returns call and provider message reviewed. Patient verbalizes understanding and will call back if wants to schedule appointment with PCP. Zakia Hughes RN * Telephone Encounter - Maye Younger LPN - 11/03/2023 3:18 PM EST TC to Pt. Unable to LM due to the mailbox is full. Sent a My Chart message. Maye Younger LPN * Telephone Encounter - Williams Salvador PA-C - 11/03/2023 3:03 PM EST I sent Zofran to help with the nausea. Would recommend continuing the mupirocin and doxycycline. Recommended yesterday that she put a large bandage over the wound so she cannot pick at it. At this point she needs to follow-up with PCP or dermatology for chronic skin issue. * Telephone Encounter - Zakia Hughes RN - 11/03/2023 2:34 PM EST Patient calls to report that since starting [...] advise, Zakia Hughes RN [facility] NoteHNO ID: [id number] Author: WILLIAMS SALVADOR PA-C Service: ? Author Type: Physician Septic Tank Servicer Type: Progress Notes Filed: 11/01/2023 16:28 Note Text: This note was created using [employer] Dream [employer]. Subjective Carolina Hightower is a 48 year [...] PAST SURGICAL HISTORY OF 2018 liver bx [facility] FAMILY HISTORY Problem Relation Age of [...] with dermatology and given referral to [facility] and [facility]. Patient voiced understanding. Feeling great complaints medicated not sure I know the vaginal I canceled we are lima (more content not included)... [facility]02-06[facility]24 History of Present illness Narrative* Williams Salvador PA-C - 11/01/2023 4:24 PM EST Images from the original note were not included. This note was created using LeadFireriter. Subjective Carolina Hightower is a 48 year [...] times a day for 7 days. 14 tablet0 mupirocin (BACTROBAN) 2 % ointment Apply to [...] mouth once daily. (Patient not taking: Reported on11/01/2023) 30 tablet 2 topiramate (TOPAMAX) 100 mg [...] PAST SURGICAL HISTORY OF 2018 liver bx [facility] FAMILY HISTORY Problem Relation Age of [...] some drainage noted. She also has some scabbingunder the right nostril as well as the right forehead. Assessment and Plan ASSESSMENT/PLAN: 1. Open wound of skin - ICD9: 879.8, ICD10: T14.8XXA Discussed putting a bandage over the prescription mupirocin that was sent so she does not pick at it. Has history of MRSA so I did cover her with doxycycline as well. Patient voiced concern that thiskeeps coming back, discussed she could follow-up with dermatology and given referral to [facility] and [facility]. Patient voiced understanding. Feeling great complaints medicated not sure I know the vaginal I canceled we are transportation issues like - CONSULT TO DERMATOLOGY Williams Salvador PA-C documented in this encounterGal[facility]02-[facility]24 Instructions* Patient Instructions* Williams Salvador PA-C - 11/01/2023 4:05 PM EST [facility] [address], [place] [address] documented in this encounterGal[facility]01-13-2024 Discharge summary Author Oscar Pantoja [facility] 2023 9:39am Note Date/Time 2023 9 :37am [facility] Medical Records Department [address] [place] [address] Discharge Summary 10/08/23 0937 MR#: [id number] Acct: [id number] Name: CAROLINA HIGHTOWER Rep #:[id number] : 1975 48 From: Oscar Pantoja MD PCP: Dr. Dacia Acosta MD Status:AD M IN [id number] Prov[facility] Date of Admission: 10/07/23 Date of Discharge: 10/08/23 Primary Care Physician: Dr. Dacia Acosta MD Reason For Visit: ASCITES Diagnosis Discharge Diagnosis (1) Cirrhosis of liver: Status: Acute Code(s): K74.60 - Unspecified cirrhosis of liver Qualifiers: Hepatic cirrhosis type: unspecified hepatic cirrhosis Ascites presence:with ascites Qualified Code(s): K74.60 - Unspecified cirrhosis of liver; R18.8 - Other ascites (2) Ascites: Status: Chronic Code(s): R18.8 - Other ascites Qualifiers: Ascites type: due to alcoholic hepatitis Qualified Code(s): K70.11 - Alcoholic hepatitis with ascites Plan Patient is a 47-year-old lady with history of alcoholic liver cirrhosis who presented with abdominal distention and pain. Patient was found to have massiveascites on CAT scan admitted to regular nursing floor for subsequent inpatient management 1. Massive ascites ? In the patient with alcoholic liver cirrhosis. Patient has been admitted to regular nursing floor plan is for patient to undergo diagnostic and therapeutic paracentesis ? 2023 A total of 2450 ml of mike-colored fluid were removed from the peritoneal cavity 2. Distended gallbladder ? Right upper quadrant ultrasound ordered for subsequent evaluation Results; 1. Small amount of ascites. 2. Severe gallbladder wall thickening likely from ascites. 3. Mild right hydronephrosis as seen on CT. 3. Alcoholic cirrhosis of the liver ? Patient is followed by GI as outpatient. Currently on lactulose nadolol and spironolacto did continue 4. Anemia - Secondary to chronic disorder monitoring H&H and transfuse if patient becomes symptomatic or hemoglobin falls below 7. EGD 09.15.22?noting Grade I esophagealvarices; severe portal HTN gastropathy. H.Pylori negative.? 5. COPD ? Currently not in exacerbation 6. Depression ? On aripiprazole and desvenlafaxine 7. Chronic alcohol dependence ? Patient admitted to occasionally alcohol use. Counseled on the need for cessation 8. Tobacco dependence - Counseled on cessation, offered nicotine patch for tobacco cravings 9. Class II obesity with BMI of 36.8 ? Complicating care weight loss advised 9. Thrombocytopenia ? Secondary to cirrhosis of the liver monitoring with daily CBC with differential 10. Hypokalemia - corrected per protocol repeat labs ordered for monitoring 11. DVT prophylaxis ? SCDs only Time spent in the patient's overall evaluation,decision-making process, review of diagnostic data, adjustment of management, discussion with other providers, nursing nursing and ancillary staff involved in patient's care documentation, 35Minutes Medications at Discharge Home Medications desvenlafaxine 100 mg tablet,extended release 24 hour 100 mg PO DAILY NERVE PAIN02/20/19 Vitamin D3 1,250 mcg OTHER QWEEK SUPPLEMENT 05/20/22 topiramate 100 mg tablet 100 mg PO BID PER GASTRO 05/20/22 trazodone 100 mg tablet 100 mg PO QHS SLEEP #1 TAB 05/21/22 aripiprazole 30 mg tablet 30 mg PO DAILY 09/14/22 gabapentin 100 mg capsule 100 mg PO Q12H 07/20/23 furosemide 20 mg tablet (Lasix) 20 mg PO DAILY #90 tabs 10/07/23 lactulose 20 gram/30 mL oral solution 20 g (30 mL) PO TID 30 days #2,880 mL 10/07/23 nadolol 20 mg tablet 20 mg PO DAILY 30 days #30 tabs 10/07/23 spironolactone 50 mg tablet 75 mg (1.5 x 50 mg) PO DAILY 30 days #45 tabs 10/07/23 Physical Exam Narrative GENERAL: cooperative HEENT: Atraumatic; normocephalic EYES; Anicteric, Normal Conjunctiva NECK; supple, normal thyroid, RESPIRATORY: Diminished to auscultation CARDIOVASCULAR: Regular S1 S2, GI: Abdomen dull to percussion : No Renal angle tenderness; EXTREMITIES: No edema, no clubbing, MUSCULOSKELETAL: no muscle wasting NEURO: Awake; no lateralizing signs. SKIN: No Rash PSYCH; Flat affect Weight / BMI Weight Weight: 91.3 kg Body Mass Index (BMI) 36.8 ABG / Lab / Microbiology Data 10/08/23 06:36 10/08/23 06:36 Laboratory: Laboratory Results - last 24 hr 10/07/23 : Fluid Source ASCITES FLUID, Fluid Color YELLOW, Fluid Appearance CLEAR, Fluid WBC 0.211, Fluid RBC 177, Fluid Tot Cell Count 0.276 H, Fld Polynuclear WBCs # 0.014, Fld Polynuclear WBCs % 6.7, Fluid Mononuclear WBCs 0.197, Fld Mononuclear WBCs % 93.3, Fluid Neutrophils 14, Fluid Lymphocytes 39, Fluid Monocytes 1, Fluid Macrophages 41, Fld Mesothelial Cells 5, Fl PathologistComment May follow, Fluid Glucose 130 H, Fluid Total Protein 1.0, Fluid LDH 53, Fluid Comment 2 SEE COMMENT 10/08/23 06:36: WBC 10.3, RBC 4.21, Hgb 9.6 L, Hct 32.5 L, MCV 77.2 L, MCH 22.8 L, MCHC 29.5 L, RDW Std Deviation 63.6 H, RDW Coeff of Katalina 22.8 H, Plt Count 115L, Immature Gran % (Auto) 0.400, Neut % (Auto) 56.5, Lymph % (Auto) 27.9, Coos %(Auto) 11.0 H, Eos % (Auto) 3.2, Baso % (Auto) 1.0, Absolute Neuts (auto) 5.8, Absolute Lymphs (auto) 2.88, Nucleated RBC % 0, Anisocytosis 1+, Sodium 138, Potassium 4.1, Chloride 111 H, Carbon Dioxide 22.0, Anion Gap 5, BUN 5 L, Creatinine 0.98, Estim Creat Clear Calc 72.18, Est GFR (MDRD) Af Amer 77, Est GFR (MDRD) Non-Af 64, BUN/Creatinine Ratio 5.1 L, Glucose 106, Calcium 8.4 L, Phosphorus 2.3 L, Magnesium 1.7, Total Bilirubin 1.90 H, AST 128 H, ALT 64 H, Alkaline Phosphatase 139 H, Total Protein 6.8, Albumin 2.3 L, Globulin 4.5 H, Albumin/Globulin Ratio 0.5 L Radiography Diagnostic Testing: Radiology Impression Paracentesis Ultrasound 10/07/23 06:00 IMPRESSION: Ultrasound guided paracentesis. Electronically Signed: Isidro Burnett MD at 14:44 EST , Gallbladder Ultrasound 10/07/23 15:27 IMPRESSION: 1. Small amount of ascites. 2. Severe gallbladder wall thickening likely from ascites. 3. Mild right hydronephrosis as seen on CT. Electronically Signed: Osmin Ellis MD at 19:18 EST , D/C Instructions Discharge Diet: No restrictions Discharge Activity: Return to Normal Activity Call your doctor if you observe: Fever of 101 or Higher, Shortness of breath, Fainting spells and Chest pain Meaningful Use Info Meaningful Use Diagnoses (Choose all that apply): None applicable Discharge Plan Admission Admit Date/Time: 10/07/23 14:16 Attending Provider: Oscar Pantoja Primary Care Provider: Dacia Acosta Consulting Providers: Elena Hoff Discharge Orders/Prescriptions Prescriptions: New furosemide [Lasix] 20 mg tablet 20 mg PO DAILY Qty: 90 0RF Continued desvenlafaxine 100 mg tablet extended release 24hr 100 mg PO DAILY Vitamin D3 1,250 mcg OTHER QWEEK Rx Instructions: TAKES ON MODAY BY MOUTH topiramate 100 mg tablet 100 mg PO BID Rx Instructions: BEFORE MEALS trazodone 100 mg tablet 100 mg PO QHS Qty: 1 0RF aripiprazole 30 mg tablet 30 mg PO DAILY nadolol 20 mg tablet 20 mg PO DAILY 30 Days Qty: 30 2RF Rx Instructions: Hold for heart less than 50 or systolic blood pressure less than 100 mmHg. spironolactone 50 mg tablet 75 mg PO DAILY 30 Days Qty: 45 2RF lactulose 20 gram/30 mL solution 20 g PO TID 30 Days Qty: 2880 2RF Rx Instructions: And adjust the frequency to have him goal of 3 bowel movements per day gabapentin 100 mg capsule 100 mg PO Q12H Patient Comments: Take 1 capsule by mouth twice daily pt taking as needed. Discontinued prednisone 20 mg tablet 20 mg PO DAILY Qty: 5 0RF Patient Comments: pt states has not been taking Referrals / Follow Up: Dacia Acosta MD [Primary Care Provider] - Within 1 Week Son Adams MD [Med Staff - Active Staff] - Within 2 Weeks Disposition Disposition (needs filled in before D/C Order can be placed): Home, Self Care Charges/Coding Visit Charges Inpatient E&M: 83178 Disch Hosp >30min 10/08/23 0939 <Electronically signed by Oscar Pantoja MD> Cosigner Signature (if applicable): CC: Dr. Oscar Pantoja MD; Dr. Dacia Acosta MD~ Signed [facility] Work Phone: 1(476) 437-899501-13-2024 Progress note Author Oscar Pantoja [facility] 2023 9:37am Note Date/Time 2023 7 :49am [facility] Medical Records Department [address] [place] [address] Progress Note - Hospitalist 10/08/23 0748 MR#: [id number] Acct: [id number] Name: CAROLINA HIGHTOWER Rep #:[id number] : 1975 48 From: Oscar Pantoja MD PCP: Dr. Dacia Acosta MD Status:AD M IN Location: PA3 [id number] Reason for Visit Reason for Visit: Diagnoses Alcoholic hepatitis with ascites (10/07/23) Unspecified cirrhosis of liver (10/07/23) Other ascites (10/07/23) Subjective Subjective Seen back to baseline. Objective Data Objective Data Vital Signs: Vital Signs Temp Pulse Resp BP Pulse Ox O2 Del Method 97.3 F L 47 L 16 104/52 L 99 Room Air 10/08/23 03:18 10/08/23 03:18 10/08/23 03:18 10/08/23 03:18 10/08/23 03:18 10/08/23 03:18 Oxygen Delivery Method Room Air Weight: 91.3 kg Body Mass Index (BMI) 36.8 Intake & Output: Intake and Output for Last 24 Hours 10/06/23 10/07/23 10/08/23 23:59 23:59 23:59 Intake Total 1050 / 1050 150 / 150 Output Total 2550 / 2550 Balance 1050 / 1050 -2400 / -2400 Lab / Micro Data 10/08/23 06:36 10/08/23 06:36 Labs: Laboratory Results - last 24 hr 10/07/23 : Fluid Source ASCITES FLUID, Fluid Color YELLOW, Fluid Appearance CLEAR, Fluid WBC 0.211, Fluid RBC 177, Fluid Tot Cell Count 0.276 H, Fld Polynuclear WBCs # 0.014, Fld Polynuclear WBCs % 6.7, Fluid Mononuclear WBCs 0.197, FldMononuclear WBCs % 93.3, Fluid Neutrophils 14, Fluid Lymphocytes 39, Fluid Monocytes 1, Fluid Macrophages 41, Fld Mesothelial Cells 5, Fl Pathologist Comment May follow, Fluid Glucose 130 H, Fluid Total Protein 1.0, Fluid LDH 53, Fluid Comment 2 SEE COMMENT 10/08/23 06:36: WBC 10.3, RBC 4.21, Hgb 9.6 L, Hct 32.5 L, MCV 77.2 L, MCH 22.8 L, MCHC 29.5 L, RDW Std Deviation 63.6 H, RDW Coeff of Katalina 22.8 H, Plt Count 115L, Immature Gran % (Auto) 0.400, Neut % (Auto) 56.5, Lymph % (Auto) 27.9, Coos %(Auto) 11.0 H, Eos % (Auto) 3.2, Baso % (Auto) 1.0, Absolute Neuts (auto) 5.8, Absolute Lymphs (auto) 2.88, Nucleated RBC % 0 Radiography Diagnostic Testing: Radiology Impression Paracentesis Ultrasound 10/07/23 06:00 IMPRESSION: Ultrasound guided paracentesis. Electronically Signed: Isidro Burnett MD at 14:44 EST , Gallbladder Ultrasound 10/07/23 15:27 IMPRESSION: 1. Small amount of ascites. 2. Severe gallbladder wall thickening likely from ascites. 3. Mild right hydronephrosis as seen on CT. Electronically Signed: Osmin Ellis MD at 19:18 EST , Physical Exam Narrative GENERAL: cooperative HEENT: Atraumatic; normocephalic EYES; Anicteric, Normal Conjunctiva NECK; supple, normal thyroid, RESPIRATORY: Diminished to auscultation CARDIOVASCULAR: Regular S1 S2, GI: Abdomen dull to percussion : No Renal angle tenderness; EXTREMITIES: No edema, no clubbing, MUSCULOSKELETAL: no muscle wasting NEURO: Awake; no lateralizing signs. SKIN: No Rash PSYCH; Flat affect Assessment & Plan Assessment/Plan (1) Cirrhosis of liver: QUALIFIERS: Ascites presence: with ascites Hepatic cirrhosis type: unspecified hepatic cirrhosis Qualified Code(s): K74.60 - Unspecified cirrhosis of liver; R18.8 - Other ascites (2) Ascites: QUALIFIERS: Ascites type: due to alcoholic hepatitis Qualified Code(s): K70.11 - Alcoholic hepatitis with ascites PLAN: Plan Patient is a 47-year-old lady with history of alcoholic liver cirrhosis who presented with abdominal distention and pain. Patient was found to have massiveascites on CAT scan admitted to regular nursing floor for subsequent inpatient management 1. Massive ascites ? In the patient with alcoholic liver cirrhosis. Patient has been admitted to regular nursing floor plan is for patient to undergo diagnostic and therapeutic paracentesis ? 2023 A total of 2450 ml of mike-colored fluid were removed from the peritoneal cavity 2. Distended gallbladder ? Right upper quadrant ultrasound ordered for subsequent evaluation Results; 1. Small amount of ascites. 2. Severe gallbladder wall thickening likely from ascites. 3. Mild right hydronephrosis as seen on CT. 3. Alcoholic cirrhosis of the liver ? Patient is followed by GI as outpatient. Currently on lactulose nadolol and spironolacto did continue 4. Anemia - Secondary to chronic disorder monitoring H&H and transfuse if patient becomes symptomatic or hemoglobin falls below 7. EGD 09.15.22?noting Grade I esophagealvarices; severe portal HTN gastropathy. H.Pylori negative.? 5. COPD ? Currently not in exacerbation 6. Depression ? On aripiprazole and desvenlafaxine 7. Chronic alcohol dependence ? Patient admitted to occasionally alcohol use. Counseled on the need for cessation 8. Tobacco dependence - Counseled on cessation, offered nicotine patch for tobacco cravings 9. Class II obesity with BMI of 36.8 ? Complicating care weight loss advised 9. Thrombocytopenia ? Secondary to cirrhosis of the liver monitoring with daily CBC with differential 10. Hypokalemia - corrected per protocol repeat labs ordered for monitoring 11. DVT prophylaxis ? SCDs only Time spent in the patient's overall evaluation,decision-making process, review of diagnostic data, adjustment of management, discussion with other providers, nursing nursing and ancillary staff involved in patient's care documentation, 35Minutes Charges/Coding Visit Charges Inpatient E&M: 65500 Subs Hosp L2 10/08/23 0937 <Electronically signed by Oscar Pantoja MD> Cosigner Signature (if applicable): CC: ~ Signed [facility] Work Phone: 1(713) 709-821601-12-2024 Progress note Author Oscar Pantoja [facility] October 07, 2023 8:04am Note Date/Time October 07, 2023 8 :04am [facility] Medical Records Department [address] [place], [place] [address] [address] Progress Note - Hospitalist 10/07/23 0757 MR#: [id number] Acct: [id number] Name: CAROLINA HIGHTOWER Rep #:[id number] : 1975 47 From: Oscar Pantoja MD PCP: Dr. Dacia Acosta MD Status:AD M MARTHA [id number] Reason for Visit Reason for Visit: Diagnoses Alcoholic hepatitis with ascites (10/06/23) Unspecified cirrhosis of liver (10/06/23) Other ascites (10/06/23) Subjective Subjective Patient is a 47-year-old lady with history of alcoholic liver cirrhosis who presented with abdominal distention and pain. Patient was found to have massiveascites on CAT scan admitted to regular nursing floor for subsequent inpatient management Objective Data Objective Data Vital Signs: Vital Signs Temp Pulse Resp BP Pulse Ox O2 Del Method 97.9 F 74 18 108/67 95 Room Air 10/07/23 05:54 10/07/23 05:54 10/07/23 05:54 10/07/23 05:54 10/07/23 05:54 10/07/23 05:54 Oxygen Delivery Method Room Air Weight: 91.3 kg Body Mass Index (BMI) 36.8 Intake & Output: Intake and Output for Last 24 Hours 10/05/23 10/06/23 10/07/23 23:59 23:59 23:59 Intake Total 1050 / 1050 Balance 1050 / 1050 Lab / Micro Data 10/07/23 04:25 10/07/23 04:25 Labs: Laboratory Results - last 24 hr 10/06/23 18:30: WBC 7.2, RBC 4.24, Hgb 9.6 L, Hct 32.4 L, MCV 76.4 L, MCH 22.6 L, MCHC 29.6 L, RDW Std Deviation 63.3 H, RDW Coeff of Katalina 23.3 H, Plt Count 76 L, MPV TNP, Immature Gran % (Auto) 0.300, Neut % (Auto) 64.6, Lymph % (Auto) 23.6, Coos % (Auto) 8.2, Eos % (Auto) 2.5, Baso % (Auto) 0.8, Absolute Neuts (auto) 4.6, Absolute Lymphs (auto) 1.70, Nucleated RBC % 0, Platelet Estimate MOD DEC, RBC Morphology N CHROM, Hypochromasia 1+, Anisocytosis 1+, Microcytosis1+, Ovalocytes RARE, Sodium 140, Potassium 3.3 L, Chloride 110 H, Carbon Ddrnnhg21.0, Anion Gap 5, BUN 6 L, Creatinine 0.87, Estim Creat Clear Calc 83.81, Est GFR (MDRD) Af Amer 89, Est GFR (MDRD) Non-Af 73, BUN/Creatinine Ratio 6.9 L, Glucose 103, Calcium 8.6, Total Bilirubin 2.20 H, Direct Bilirubin 0.94 H, AST 144 H, ALT 70 H, Alkaline Phosphatase 153 H, Total Protein 7.4, Albumin 2.6 L, Globulin 4.8 H, Lipase 38 10/06/23 19:00: PT 21.1 H, INR 1.8 10/07/23 04:25: WBC 6.5, RBC 3.80 L, Hgb 8.8 L, Hct 29.1 L, MCV 76.6 L, MCH 23.2L, MCHC 30.2 L, RDW Std Deviation 64.3 H, RDW Coeff of Katalina 23.3 H, Plt Count 68 L, Immature Gran % (Auto) 0.300, Neut % (Auto) 53.9, Lymph % (Auto) 31.1, Coos %(Auto) 10.9 H, Eos % (Auto) 3.2, Baso % (Auto) 0.6, Absolute Neuts (auto) 3.5, Absolute Lymphs (auto) 2.03, Nucleated RBC % 0, Differential Comment SCANNED, Anisocytosis 2+, Microcytosis 1+, Sodium 140, Potassium 3.4 L, Chloride 111 H, Carbon Dioxide 25.0, Anion Gap 4 L, BUN 6 L, Creatinine 0.80, Estim Creat Clear Calc 89.41, Est GFR (MDRD) Af Amer 98, Est GFR (MDRD) Non-Af 81, BUN/Creatinine Ratio 7.5 L, Glucose 108 H, Calcium 7.8 L, Total Bilirubin 1.50 H, AST 124 H, ALT 60 H, Alkaline Phosphatase 123 H, Total Protein 6.3 L, Albumin 2.2 L, Globulin 4.1, Albumin/Globulin Ratio 0.5 L Radiography Diagnostic Testing: Radiology Impression Abdomen/Pelvis CT 10/06/23 19:38 IMPRESSION: Cirrhotic liver with extensive and unchanged abdominal ascites Stable splenomegaly Abnormally distended gallbladder with gallbladder enhancement and wall thickening but no gallstones or biliary dilatation is noted. Acalculus cholecystitis can have this appearance Nonobstructing nephrolithiasis Stable mild nonspecific dilatation of the right renal pelvis and proximal right ureter without obstructing stone Some mucosal thickening in the stomach consistent with gastritis Electronically Signed: Jorge Mcknight MD at 20:37 EST , Physical Exam Narrative GENERAL: cooperative HEENT: Atraumatic; normocephalic EYES; Anicteric, Normal Conjunctiva NECK; supple, normal thyroid, RESPIRATORY: Diminished to auscultation CARDIOVASCULAR: Regular S1 S2, GI: Abdomen markedly distended dull to percussion : No Renal angle tenderness; EXTREMITIES: No edema, no clubbing, MUSCULOSKELETAL: no muscle wasting NEURO: Awake; no lateralizing signs. SKIN: No Rash PSYCH; Flat affect Assessment & Plan Assessment/Plan (1) Cirrhosis of liver: QUALIFIERS: Hepatic cirrhosis type: unspecified hepatic cirrhosis Ascites presence: with ascites Qualified Code(s): K74.60 - Unspecified cirrhosis of liver; R18.8 - Other ascites (2) Ascites: QUALIFIERS: Ascites type: due to alcoholic hepatitis Qualified Code(s): K70.11 - Alcoholic hepatitis with ascites PLAN: Plan Patient is a 47-year-old lady with history of alcoholic liver cirrhosis who presented with abdominal distention and pain. Patient was found to have massiveascites on CAT scan admitted to regular nursing floor for subsequent inpatient management 1. Massive ascites ? In the patient with alcoholic liver cirrhosis. Patient has been admitted to regular nursing floor plan is for patient to undergo diagnostic and therapeutic paracentesis 2. Distended gallbladder ? Right upper quadrant ultrasound ordered for subsequent evaluation 3. Alcoholic cirrhosis of the liver ? Patient is followed by GI as outpatient. Currently on lactulose nadolol and spironolacto did continue 4. Anemia - Secondary to chronic disorder monitoring H&H and transfuse if patient becomes symptomatic or hemoglobin falls below 7. EGD 09.15.22?noting Grade I esophagealvarices; severe portal HTN gastropathy. H.Pylori negative.? 5. COPD ? Currently not in exacerbation 6. Depression ? On aripiprazole and desvenlafaxine 7. Chronic alcohol dependence ? Patient admitted to occasionally alcohol use. Counseled on the need for cessation 8. Tobacco dependence - Counseled on cessation, offered nicotine patch for tobacco cravings 9. Class II obesity with BMI of 36.8 ? Complicating care weight loss advised 9. Thrombocytopenia ? Secondary to cirrhosis of the liver monitoring with daily CBC with differential 10. Hypokalemia - corrected per protocol repeat labs ordered for monitoring 11. DVT prophylaxis ? SCDs only Time spent in the patient's overall evaluation,decision-making process, review of diagnostic data, adjustment of management, discussion with other providers, nursing nursing and ancillary staff involved in patient's care documentation, 50Minutes Charges/Coding Visit Charges Inpatient E&M: 34609 Subs Hosp L3 10/07/23 0804 <Electronically signed by Oscar Pantoja MD> Cosigner Signature (if applicable): CC: ~ Signed [facility] Work Phone: 1(974) 824-397201-12-2024 History and physical note Author [facility] October 07, 2023 2:09am Note Date/Time October 06, 2023 1 0:13pm [facility] Medical Records Department [address] [place] [address] History & Physical Exam 10/06/23 2211 MR#: [id number] Acct: [id number] Name: CAROLINA HIGHTOWER Rep #:[id number] : 1975 47 From: Elena Hoff MD PCP: Dr. Dacia Acosta MD Status:CLEOPATRA Nair [id number] HPI - General General Date of Admission: 10/06/23 Date of Service: 10/06/23 Chief Complaint: abdominal pain HPI Narrative CAROLINA HIGHTOWER, is a 47 F with a PMH as outlined who presents via the ED on 10/06/2023 with a complaint of abdominal pain. She has a history of cirrhosis andsees Dr Collier. She has not been compliant with her meds because she says she is not sure what she is supposed to be taking and she recently also moved and had too much to deal with, so she stopped taking her meds. SHe denies any fever or chills, nausea, vomiting or diarrhea. She does admit to acute urinary symptoms like dysuria and frequency of urination. Review of systems is otherwisenegative. Vitals in the ED were BP of 105/76, [place] of 66, RR of 16 and temp of 98.2F. She was saturating at 98% on room air. CBC showed hb of 9.6, wbc of 7.2, platelets of 76. Chemistry showed sodium of 140 with potassium of 3.3 and chloride of 110. Creatinine was 0.87. Total bilirubin is 2.2 and AST, ALT and ALP elevated. CT of the abdomen and pelvis showed cirrhotic liver with extensive and unchanged abdominal ascites with stable splenomegaly and abnormally distended gallbladder with gallbladder enhancement and wall thickening but no gallstones or biliary dilatation noted nonobstructing nephrolithiasis.She is being admitted to be managed for abdominal pain likely due to ascites from liver cirrhosis [facility] Medical History Acute insomnia Anemia Anxiety and depression Ascites Chronic anemia Cirrhosis of liver COPD (chronic obstructive pulmonary disease) Difficulty chewing Gastric reflux Hepatitis History of diverticulitis History of edema History of pain when walking History of renal disease Hyperbilirubinemia Injury of head and neck Loss of consciousness Low iron Marijuana use Migraine headache MRSA infection Obesity Open wound Polysubstance abuse Rash Restless legs Seizures Shortness of breath on exertion Smoker Substance abuse Thrombocytopenia Tobacco use Home Medications desvenlafaxine 100 mg tablet,extended release 24 hour 100 mg PO DAILY NERVE PAIN02/20/19 [History Last Taken Unknown] Vitamin D3 1,250 mcg OTHER QWEEK SUPPLEMENT 05/20/22 [History Last Taken Unknown] topiramate 100 mg tablet 100 mg PO BID PER GASTRO 05/20/22 [History Last Taken Unknown] trazodone 100 mg tablet 100 mg PO QHS SLEEP #1 TAB 05/21/22 [Rx Last Taken Unknown] aripiprazole 30 mg tablet 30 mg PO DAILY 09/14/22 [History Last Taken Unknown] gabapentin 100 mg capsule 100 mg PO Q12H 07/20/23 [History Last Taken Unknown] lactulose 20 gram/30 mL oral solution 20 g (30 mL) PO TID 30 days #2,880 mL 07/22/23 [Rx Last Taken Unknown] nadolol 20 mg tablet 20 mg PO DAILY 30 days #30 tabs 07/22/23 [Rx Last Taken Unknown] spironolactone 50 mg tablet 75 mg (1.5 x 50 mg) PO DAILY 30 days #45 tabs 07/22/23 [Rx Last Taken Unknown] prednisone 20 mg tablet 20 mg PO DAILY #5 tabs 09/24/23 [Rx Last Taken Unknown] Allergy/AdvReac Type Severity Reaction Status Date / Time bupropion HCl Allergy SEIZURES Verified 10/06/23 17:11 [From Wellbutrin] codeine Allergy Rash Verified 10/06/23 17:11 Family History Mother Diabetes Father Cancer HX Throat CA. 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, marijuana, heroin and methamphetamine seatbelt use: always do you feel safe at home: Yes ROS Review of Systems ROS Unobtainable: Denies due to encephalopathy Constitutional Constitutional: Reports fatigue; Denies anorexia, chills or fever(s) Eyes Eyes: Denies change in vision ENT HEENT: Denies dysphagia Cardiovascular Cardiovascular: Denies chest pain, edema, palpitations or paroxysmal nocturnal dyspnea Respiratory/Chest Respiratory/Chest: Denies cough, shortness of breath at rest or shortness of breath with exertion Gastrointestinal Gastrointestinal: Reports abdominal pain; Denies constipation, melena, nausea orvomiting Genitourinary Genitourinary: Reports dysuria and urinary frequency Musculoskeletal Musculoskeletal: Reports back pain; Denies joint pain or joint swelling Integumentary Integumentary: Denies dry skin or jaundice Neurologic Neurologic: Denies confusion, dizziness, focal weakness or headache(s) Psychiatric Psychiatric: Denies anxiety or depression Endocrine Endocrinology: Denies change in body appearance Vital Signs Vital Signs Vital Signs: 10/06/23 17:08 10/06/23 21:47 Temperature 97 F L Temperature Source Temporal Pulse Rate 80 Respiratory Rate 16 Blood Pressure 130/85 H 106/74 Blood Pressure Mean 100 84 Pulse Ox 100 Oxygen Delivery Method Room Air Weight Weight: 208 lb 6.548 oz Body Mass Index (BMI) 38.1 Physical Exam Const alert, oriented x3 and no apparent distress Constitutional Narrative: obese General Appearance: cooperative and well developed HEENT normocephalic, head/scalp atraumatic and moist oral mucous membranes Eyes PERRL and EOMs intact bilaterally Neck no lymphadenopathy and supple General: trachea midline Lymph Lymphatic: no lymphadenopathy noted Resp normal respiratory effort, normal air movement and clear to auscultation bilaterally Cardio regular rate, regular rhythm, S1 normal heart sound, S2 normal heart sound and no murmurs GI GI Narrative: abdomen significantly distended, with positive fluid thrill, minimal generalisedtenderness Extremity normal capillary refill, no clubbing, cyanosis or edema and no calf tenderness General Extremity: no tenderness to palpation of joints or extremities Skin General Skin Exam: no breakdown Neuro CN's II-XII intact bilaterally, no focal motor deficits and no sensory deficits noted Coordination / Balance: [id number] test normal Motor Exam: strength 5/5 throughout Psych thought process normal and cooperative Appearance: appropriate Results Lab / Micro Data 10/06/23 18:30 10/06/23 18:30 Labs: Laboratory Results - last 24 hr 10/06/23 18:30: WBC 7.2, RBC 4.24, Hgb 9.6 L, Hct 32.4 L, MCV 76.4 L, MCH 22.6 L, MCHC 29.6 L, RDW Std Deviation 63.3 H, RDW Coeff of Katalina 23.3 H, Plt Count 76 L, MPV TNP, Immature Gran % (Auto) 0.300, Neut % (Auto) 64.6, Lymph % (Auto) 23.6, Coos % (Auto) 8.2, Eos % (Auto) 2.5, Baso % (Auto) 0.8, Absolute Neuts (auto) 4.6, Absolute Lymphs (auto) 1.70, Nucleated RBC % 0, Platelet Estimate MOD DEC, RBC Morphology N CHROM, Hypochromasia 1+, Anisocytosis 1+, Microcytosis1+, Ovalocytes RARE, Sodium 140, Potassium 3.3 L, Chloride 110 H, Carbon Pltqewa85.0, Anion Gap 5, BUN 6 L, Creatinine 0.87, Estim Creat Clear Calc 83.81, Est GFR (MDRD) Af Amer 89, Est GFR (MDRD) Non-Af 73, BUN/Creatinine Ratio 6.9 L, Glucose 103, Calcium 8.6, Total Bilirubin 2.20 H, Direct Bilirubin 0.94 H, AST 144 H, ALT 70 H, Alkaline Phosphatase 153 H, Total Protein 7.4, Albumin 2.6 L, Globulin 4.8 H, Lipase 38 10/06/23 19:00: PT 21.1 H, INR 1.8 Imagaing Radiology Impression Abdomen/Pelvis CT 10/06/23 19:38 IMPRESSION: Cirrhotic liver with extensive and unchanged abdominal ascites Stable splenomegaly Abnormally distended gallbladder with gallbladder enhancement and wall thickening but no gallstones or biliary dilatation is noted. Acalculus cholecystitis can have this appearance Nonobstructing nephrolithiasis Stable mild nonspecific dilatation of the right renal pelvis and proximal right ureter without obstructing stone Some mucosal thickening in the stomach consistent with gastritis Electronically Signed: Jorge Mcknight MD at 20:37 EST Reading Location ID and State: [address] [place] [address] , Service support , Assessment & Plan Assessment/Plan (1) Cirrhosis of liver: QUALIFIERS: Hepatic cirrhosis type: unspecified hepatic cirrhosis Ascites presence: with ascites Qualified Code(s): K74.60 - Unspecified cirrhosis of liver; R18.8 - Other ascites (2) Ascites: QUALIFIERS: Ascites type: due to alcoholic hepatitis Qualified Code(s): K70.11 - Alcoholic hepatitis with ascites PLAN: Plan #Abdominal ascites in the setting of alcoholic liver cirrhosis * admitted o/a of abdominal pain * last had paracentesis about 2-3 weeks ago. Usually has it every 2-3 weeks * CT abdomen showed massive ascites and distended gallbladder with some wall thickening and enhancement but without gallstones or biliary dilatation. It is difficult to check Wellington sign due to massive ascites. * Admit to MedSurg. For paracentesis tomorrow. * Was on IV ceftriaxone. Get urine cultures and urinalysis as patient is complaining of urinary symptoms * Get gallbladder ultrasound tomorrow to further evaluate gallbladder. * On nadolol and prednisone as well as lactulose * * #Alcoholic liver cirrhosis: On lactulose, nadolol and spironolactone #Depression: On aripiprazole and desvenlafaxine #COPD: Not in exacerbation. On breathing treatments bronchodilators. #Alcohol use disorder * Patient states he still drinks but occasionally and last drink was at [place] and . Counseled to quit. Will hold off on starting alcohol withdrawal protocol now as there are no signs of withdrawal. * DVT prophylaxis: SCDs Charges/Coding Visit Charges Inpatient E&M: 94174 Init Hosp L3 10/07/23 0209 <Electronically signed by Elena Hoff MD> Cosigner Signature (if applicable): CC: Dr. Dacia Acosta MD; Dr. Elena Hoff MD~ Signed [facility] Work Phone: 1(689) 845-115001-12-2024 Discharge summary Author Darius Bobby [facility] October 06, 2023 10:16pm Note Date/Time October 06, 2023 7 :28pm [facility] Medical Records Department [address] [place] [address] Emergency Department Summary 10/06/23 MR#: [id number] Acct: [id number] Name: CAROLINA HIGHTOWER Rep #:[id number] : 1975 47 From: Darius Rosales DO PCP: Dr. Dacia Acosta MD Status:RE G ER Location: ED HPI HPI - GI History of Present Illness Chief Complaint: Abd Pain Narrative Narrative: 66-year-old female with history of cirrhosis, ascites,, abdominal pain. Patientstates she has a history of cirrhosis and has paracentesis every couple of weeks. She sees Dr. Porras. Patient states that she recently was started on ever house with a roommate and had her medications left behind. She states thatprior to this she could not fathom how to take her medications she states it wastoo many meds and she did not take them. Patient states her last medication prescription refill was here from the hospital. Patient does admit to nausea/vomiting/increasing abdominal pain and abdominal distention. No fevers at home. Patient also tells me she is not sure why she had Boces as she is not an alcoholic and has not had drinking issues since she was a teenager. Patient does not get as she had hepatitis C as well PFSH PFSH Medical History Acute insomnia Anemia Anxiety and depression Ascites Chronic anemia Cirrhosis of liver COPD (chronic obstructive pulmonary disease) Difficulty chewing Gastric reflux Hepatitis History of diverticulitis History of edema History of pain when walking History of renal disease Hyperbilirubinemia Injury of head and neck Loss of consciousness Low iron Marijuana use Migraine headache MRSA infection Obesity Open wound Polysubstance abuse Rash Restless legs Seizures Shortness of breath on exertion Smoker Substance abuse Thrombocytopenia Tobacco use Home Medications desvenlafaxine 100 mg tablet,extended release 24 hour 100 mg PO DAILY NERVE PAIN02/20/19 [History Last Taken Unknown] Vitamin D3 1,250 mcg OTHER QWEEK SUPPLEMENT 05/20/22 [History Last Taken Unknown] topiramate 100 mg tablet 100 mg PO BID PER GASTRO 05/20/22 [History Last Taken Unknown] trazodone 100 mg tablet 100 mg PO QHS SLEEP #1 TAB 05/21/22 [Rx Last Taken Unknown] aripiprazole 30 mg tablet 30 mg PO DAILY 09/14/22 [History Last Taken Unknown] gabapentin 100 mg capsule 100 mg PO Q12H 07/20/23 [History Last Taken Unknown] lactulose 20 gram/30 mL oral solution 20 g (30 mL) PO TID 30 days #2,880 mL 07/22/23 [Rx Last Taken Unknown] nadolol 20 mg tablet 20 mg PO DAILY 30 days #30 tabs 07/22/23 [Rx Last Taken Unknown] spironolactone 50 mg tablet 75 mg (1.5 x 50 mg) PO DAILY 30 days #45 tabs 07/22/23 [Rx Last Taken Unknown] prednisone 20 mg tablet 20 mg PO DAILY #5 tabs 09/24/23 [Rx Last Taken Unknown] Allergy/AdvReac Type Severity Reaction Status Date / Time bupropion HCl Allergy SEIZURES Verified 10/06/23 17:11 [From Wellbutrin] codeine Allergy Rash Verified 10/06/23 17:11 Family History Mother Diabetes Father Cancer HX Throat CA. 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, marijuana, heroin and methamphetamine seatbelt use: always do you feel safe at home: Yes ROS ROS ED Constitutional Constitutional ED: Denies chills, fever(s) or sweats Eyes Eyes: Denies blurry vision or change in vision ENT ENT ED: Denies ear pain or sore throat Cardiovascular Cardiovascular: Denies chest pain, palpitations or racing heartbeat Respiratory/Chest Respiratory/Chest: Denies cough, dyspnea or sputum Gastrointestinal Gastrointestinal: Reports abdominal pain, nausea and vomiting; Denies constipation or diarrhea Genitourinary Genitourinary ED: Denies dysuria, hematuria or urinary frequency Musculoskeletal Musculoskeletal: Denies arthralgias, myalgias or neck pain Integumentary Denies abscess, Abrasions or rash Neurologic Neurologic: Denies headache(s), paresthesias or weakness Psychiatric Psychiatric: Denies anxiety, depression, suicidal ideation or suicidal thoughts Endocrine Endocrinology: Denies polydipsia or polyuria EXAM Physical Exam Const Vital Signs: 10/06/23 17:08 10/06/23 21:47 Temperature 97 F L Temperature Source Temporal Pulse Rate 80 Respiratory Rate 16 Blood Pressure 130/85 H 106/74 Blood Pressure Mean 100 84 Pulse Ox 100 Oxygen Delivery Method Room Air Positive well nourished and obese General Appearance ED: NAD Nutritional Appearance: obese HEENT Reports moist mucous membranes HEENT Narrative: There is a sore on the roof of the mouth approximately 1 cm circular which appears ulcerated. There is no plaques otherwise. Oropharynx patent without stridor. Tongue normal. No sublingual edema. Including close than normal. normocephalic and atraumatic Mouth ED: Yes lips normal, Yes tongue normal and Yes salivary gland normal Mouth: lips normal, tongue normal and salivary gland normal Throat: posterior oropharynx normal Neck no lymphadenopathy and supple Resp normal respiratory effort Auscultation: Negative for rales, rhonchi or wheezes Cardio regular rate and regular rhythm GI Palpation: tender other (Generally diffuse abdominal pain) MDM MDM MDM Narrative Medical decision making narrative: Patient presenting with abdominal pain differential includes gastritis, GERD, colitis, diverticulitis, cholecystitis, dehydration, anemia, electrolyte abnormalities, SBP, cirrhosis, ascites, transaminitis. CBC was obtained to assess white blood cell count, hemoglobin, platelets. CMP to assess liver function, renal function, electrolytes. Lipase to assess for pancreatitis. Patient medicated morphine, Zofran. She is given IV fluids. CBC shows no significant leukocytosis with white blood cell count of 7.2. Hemoglobin near baseline at 9.6. INR normal at 1.8. Renal function and electrolytes within normal limits with exception of potassium 3.3. AST 144, ALT 70, alkaline phosphatase 153. Lipase was normal. CT of the abdomen pelvis with IV contrast shows ascites and also possibility of a calculus cholecystitis. Patient does not specifically have any right upper quadrant pain. Her LFTs are always elevated. Discussed with Dr. Porras who recommend admission for paracentesis. She will be covered with Rocephin. She was discussed with hospitalist for admission. Impression: 1. abdominal pain 2. Medical noncompliance 3. Nausea/vomiting 4. Ascites Lab Data Attestation: I reviewed the patient's lab results. Labs: Laboratory Results - last 24 hr 10/06/23 10/06/23 18:30 19:00 WBC 7.2 RBC 4.24 Hgb 9.6 L Hct 32.4 L MCV 76.4 L MCH 22.6 L MCHC 29.6 L RDW Std Deviation 63.3 H RDW Coeff of Katalina 23.3 H Plt Count 76 L MPV TNP Immature Gran % (Auto) 0.300 Neut % (Auto) 64.6 Lymph % (Auto) 23.6 Coos % (Auto) 8.2 Eos % (Auto) 2.5 Baso % (Auto) 0.8 Absolute Neuts (auto) 4.6 Absolute Lymphs (auto) 1.70 Nucleated RBC % 0 Platelet Estimate MOD DEC RBC Morphology N CHROM Hypochromasia 1+ Anisocytosis 1+ Microcytosis 1+ Ovalocytes RARE PT 21.1 H INR 1.8 Sodium 140 Potassium 3.3 L Chloride 110 H Carbon Dioxide 25.0 Anion Gap 5 BUN 6 L Creatinine 0.87 Estim Creat Clear Calc 83.81 Est GFR (MDRD) Af Amer 89 Est GFR (MDRD) Non-Af 73 BUN/Creatinine Ratio 6.9 L Glucose 103 Calcium 8.6 Total Bilirubin 2.20 H Direct Bilirubin 0.94 H AST 144 H ALT 70 H Alkaline Phosphatase 153 H Total Protein 7.4 Albumin 2.6 L Globulin 4.8 H Lipase 38 Radiography Diagnostic Testing: Clinical Impression(s) from Imaging Studies Abdomen/Pelvis CT 10/06/23 19:38 IMPRESSION: Cirrhotic liver with extensive and unchanged abdominal ascites Stable splenomegaly Abnormally distended gallbladder with gallbladder enhancement and wall thickening but no gallstones or biliary dilatation is noted. Acalculus cholecystitis can have this appearance Nonobstructing nephrolithiasis Stable mild nonspecific dilatation of the right renal pelvis and proximal right ureter without obstructing stone Some mucosal thickening in the stomach consistent with gastritis Electronically Signed: Jorge Mcknight MD at 20:37 EST , Discharge Plan Triage Chief Complaint: Abd Pain ED Provider: Darius Rosales Dx/Rx/DC Orders Prescriptions: No Action desvenlafaxine 100 mg tablet extended release 24hr 100 mg PO DAILY spironolactone 50 mg tablet 75 mg PO DAILY 30 Days Qty: 45 2RF nadolol 20 mg tablet 20 mg PO DAILY 30 Days Qty: 30 2RF Rx Instructions: Hold for heart less than 50 or systolic blood pressure less than 100 mmHg. lactulose 20 gram/30 mL solution 20 g PO TID 30 Days Qty: 2880 2RF Patient Comments: HAS BUT NOT USING Rx Instructions: And adjust the frequency to have him goal of 3 bowel movements per day Vitamin D3 1,250 mcg OTHER QWEEK Rx Instructions: TAKES ON MODAY BY MOUTH topiramate 100 mg tablet 100 mg PO BID Rx Instructions: BEFORE MEALS trazodone 100 mg tablet 100 mg PO QHS Qty: 1 0RF aripiprazole 30 mg tablet 30 mg PO DAILY prednisone 20 mg tablet 20 mg PO DAILY Qty: 5 0RF gabapentin 100 mg capsule 100 mg PO Q12H Patient Comments: Take 1 capsule by mouth twice daily Primary Care Provider: Dacia Acosta Referrals: Dacia Acosta MD [Primary Care Provider] - What to do if you have Problems For any increased pain, shortness of breath, bleeding, nausea or vomiting, chestpain, or any unexpected problems, contact your Primary Care Provider. Call [facility] ([phone]) or report to the closest Emergency Room. Call 911 if necessary. 10/06/236 <Electronically signed by Darius Rosales DO> Cosigner Signature (if applicable): CC: Dr. Dacia Acosta MD ~ Signed [facility] Work Phone: [phone]) 993-346012-26-2023 Telephone encounter Note* Telephone Encounter - Emperatriz Chacon LPN - 09/20/2023 9:58 AM EST Unable to contact patient X2 [id number] Miscellaneous Notes* Telephone Encounter - Emperatriz Chacon LPN - 09/20/2023 9:58 AM EST Unable to contact patient X2 * Telephone Encounter - Emperatriz Chacon LPN - 09/16/2023 10:04 AM EST S: Patient admitted to: [facility] 09/09/23 B: Discharged on : 09/15/23 A: Hospital follow up call initiated to discuss any medication changes, follow up appointments and discharge instructions: Small bowel obstruction R: No contact x 1 at : [phone] documented in this [facility]12-22-2023 Telephone encounter Note* Telephone Encounter - Emperatriz Chacon LPN - 09/16/2023 10:04 AM EST S: Patient admitted to: [facility] 09/09/23 B: Discharged on : 09/15/23 A: Hospital follow up call initiated to discuss any medication changes, follow up appointments and discharge instructions: Small bowel obstruction R: No contact x 1 at : [phone] [id number] Note* Care Coordination - MIRIAM Goldsmith - 09/15/2023 4:00 PM EST Social work follow up on discharge. SHELL notified by patients bedside RN patient needs assist with transport to home. SHELL spoke to patient to confirm address on file is correct. She reports she typically will use her [employer] [facility]ohnny for transport and uses their uber/lyft service. SW placed call to [facility] [phone]. Transport arranged for pickling tank operator at [address] [place] [address] between 4:12-6:12pm.They will call the unit 15 minutes prior to their arrival . Ref # [id number]. amusement park worker updated patients bedside RN, who will update the patient. [facility] [id number] Note* Care Coordination - MIRIAM Goldsmith - 09/15/2023 4:00 PM EST Social work follow up on discharge. SHELL notified by patients bedside RN patient needs assist with transport to home. SHELL spoke to patient to confirm address on file is correct. She reports she typically will use her [employer] johnny for transport and uses their uber/lyft service. SHELL placed call to [facility] [phone]. Transport arranged for pickling tank operator at [address] [place] [address] between 4:12-6:12pm.They will call the unit 15 minutes prior to their arrival . Ref # [id number]. amusement park worker updated patients bedside RN, who will update the patient. [facility] [id number] Miscellaneous Notes* Care Coordination - MIRIAM Goldsmith - 09/15/2023 4:00 PM EST Social work follow up on discharge. SHELL notified by patients bedside RN patient needs assist with transport to home. SW spoke to patient to confirm address on file is correct. She reports she typically will use her [employer]ohnny for transport and uses their uber/lyft service. [email or web address] [phone]. Transport arranged for pickling tank operator at [address] [place] [address] between 4:12-6:12pm.They will call the unit 15 minutes prior to their arrival . Ref # [id number]. amusement park worker updated patients bedside RN, who will update the patient. * Care Coordination - Jimi Jackson RN - 09/14/2023 2:54 PM EST Chart reviewed. Patient had paracentesis today with 1700 ml removed. Surgery is following patient for likely ileus -->no plans for intervention and recommend ADAT. Current discharge plan is home no needs once medically stable. * Perioperative Nursing Note - Marimar Velasquez RN - 09/14/2023 9:19 AM EST Patient to ultrasound department for paracentesis. History, medications and allergies reviewed. Samuel Pastor PA-C in to speak with patient. Informed consent obtained. 1700 mL clear yellow colored fluid removed. Patient tolerated procedure well. Bandaid applied to site. Patient discharged to 7W * Care Coordination - Meg Herrmann RN - 09/13/2023 7:35 AM EST Images from the original note [...] Stay (Days): 4 GMLOS: No GMLOS Documented * Care Coordination - Meg Herrmann RN - 09/12/2023 10:19 AM EST Care Managment Initial Assessment Date: 09/12/2023 Patient Name: Carolina Hightower : 1975 Patient Information Source of Information: Patient Cognition/Language: WFL - Within Functional Limits Permission given to speak with patient inside sales account representative/caregiver as indicated: Yes Confirmation of Payer [...] pain, nausea and vomiting, hx: polysubstance abuse. OR diet and Addiction Medicine consulted. Discharge plan home with Significant Other. Meg Herrmann RN * Care Coordination - Kaylin Rivera RN - 09/11/2023 3:56 PM EST Attempted to complete Initial assessment over the phone. Patient currently unavailable/off unit. Will try again as time allows. TCC will follow. documented in this [facility]12-21-2023 NoteDischarge Summary Carolina Hightower : 1975 ADMIT DATE: [...] SIGNIFICANT DIAGNOSTIC STUDIES: US guided abdominal paracentesis [[id number]] Collected: 09/14/231134 Order Status: Completed Updated: 09/14/231136 Narrative: Patient Name: CAROLINA HIGHTOWER : 1975 [facility]#: [id number] Exam Date/Time: 09/14/2023 09:36 Procedure: US GUIDED ABDOMINAL PARACENTESIS Ordering Provider: LIM HARIKRISHNA Reason For Exam: Abdominal distention, pain PROCEDURE: Ultrasound-guided paracentesis PROCEDURAL PERSONNEL Advanced Practice Provider: Windy Pastor PA-C Attending physician, Max Huerta M.D., was available in the department [...] 11:36 AM EST US guided abdominal paracentesis [[id number]] Collected: 09/10/23853 Order Status: Completed Updated: 09/10/23854 Narrative: Patient Name: CAROLINA HIGHTOWER : 1975 Exam Date/Time: 09/10/2023 08:29 Proced (more content not included)...[facility]12-21-2023 History of Present illness Narrative* Latha Lester RD - 09/15/2023 12:12 PM EST Nutrition Assessment Type and Reason [...] ~200#. Had a bed weight of 205# 09/12,then had a paracentesis with 1.7L removed 09/14 and a bed weight today of 109.9#) Body Fat Loss: No significant body fat loss Muscle Mass Loss: No significant muscle mass loss Fluid Accumulation: Moderate to Severe (S/p paracentesis 09/14 with 1.7L removed) Ascites Race Car Mechanic Strength: Not Performed Nutrition Assessment: 47yo F [...] d/t insufficient fluid. General Surgery consulted and rec'dslow diet advancement, monitor ascites for paracentesis and [...] however pt states she has not been eatingwell here d/t a poor appetite. She reports she is eating at least half of my meals, but not like Inormally would. At home she reports she normally eats small amounts of food frequently, as opposedto 3 larger meals d/t frequent bloating. She denies feeling bloated today but was prior to the parac entesis. She confirms her UBW is ~200#. She had a bed weight of 205.6# on 09/[address] obtained a bed weight of 209.9# (even though pt s/p paracentesis yesterday). Pt reports she has never tried Ensure but is interested in receiving them here. Estimated Daily Nutrient Needs: Energy Requirements Based On: Kcal/kg Weight Used for Energy Requirements: [place] Weight for Energy Calculation (kg): 50 kg Total Energy Requirements (kcals/day): 27-32 kcal/kg = 9924-8455 kcal/day Weight Used for Protein Requirements: [place] Weight in Kg Used for Protein Requirements: [...] Ordered Anthropometric Measures: Height: 157.5 cm (5' 2.01) Current Body Weight: 95.2 kg (209 lb 14.4 oz) (09/15 bed) Admission Body Weight: (No weight on admit) Usual Body Weight: 90.7 kg (200 lb) (stated) % Weight Change (Calculated): 5 [place] Body Weight (lbs) (Calculated): 110 lbs [place] Body Weight (Kg) (Calculated): 50 kg % [place] Body Weight (Calculated): 190.8 % BMI (kg/m2) [...] Continue current diet Latha Lester RD Contact: *[phone] * Samia Lim MD - 09/15/2023 8:21 AM EST Images from the original note [...] placed to surgery. Initially she was kept NPO.Patient was seen with surgery and recommended starting [...] 5 LIVER PROFILE: No results for input(s): AST, ALT, BILITOT, ALKPHOS, PROT in the last 72 hours. No lab exists for component: LABALBU PT/INR: No results for input(s): PROTIME, INR in the last 72 hours. CARDIAC [...] 1,000 mL enema, 1 enema, Rectal, TID [id number]-jzqeentqd, , Topical, TID pantoprazole (ProtoNix) 40 mg [...] Contact: Vannesa Hightower Mobile Relation: Daughter Saima Lim MD Division of Hospitalist Medicine [facility] * Saima Lim MD - 09/14/2023 9:58 AM EST Images from the original note [...] placed to surgery. Initially she was kept NPO.Patient was seen with surgery and recommended starting [...] PROT 6.1* PT/INR: No results for input(s): PROTIME, INR in the last 72 hours. CARDIAC [...] 1,000 mL enema, 1 enema, Rectal, TID [id number]-[id number], , Topical, TID pantoprazole (ProtoNix) 40 mg [...] Contact: Vannesa Hightower Mobile Relation: Daughter Saima Lim MD Division of Hospitalist Medicine [facility] * Saima Lim MD - 09/13/2023 9:01 AM EST Images from the original note [...] placed to surgery. Initially she was kept NPO.Patient was seen with surgery and recommended starting [...] Emergency Contact: Vannesa Hightower Mobile Relation: Daughter Saiam Lim MD Division of Hospitalist Medicine [facility] * Kate Harley MD - 09/12/2023 4:52 PM EST Images from the original note were [...] This note may have been dictated using Protecode Medical Practice Edition 2.6 and/or DescribeMe Voice Recognition Feature. The document was proofread; however, unrecognized voice recognition firestopper installer errors may be present. Associated attestation - Karen Yun MD - 09/13/2023 2:49 PM EST ~~~~~~~~~~~~~~~~~~~~~~~~~~~~~~~~~~~~~~~~~~~~~~~~~~~~~~~~~~~~~ ATTENDING ADDENDUM Patient Active Problem List Diagnosis Small bowel obstruction (HCC) Polysubstance use disorder Retroperitoneal bleed Physical deconditioning Myofascial pain Major depression Lumbar strain Lumbago Insomnia Chronic hepatitis C without hepatic coma (CMS/HCC) (HCC) GERD (gastroesophageal reflux disease) I independently saw the above patient and reviewed the recent events, imaging, labs, vital signs; Iperformed a physical exam and ROS on the [...] of morbidity from additional diagnostic testing or treatmentdue to ileus []High [x]Moderate []Low Complexity: Acute [...] FACS Division of Trauma Department of Surgery [facility] ~~~~~~~~~~~~~~~~~~~~~~~~~~~~~~~~~~~~~~~~~~~~~~~~~~~~~~~~~~~~~ This note may have been dictated using Protecode Medical Practice Edition 2.6 and/or DescribeMe Voice Recognition Feature. The document was proofread; however, unrecognized voice recognition firestopper installer errors may be present. * Kaylin Camarillo, [facility] - 09/12/2023 4:15 PM EST [facility] ADMISSION MEDICATION RECONCILIATION Date: 09/12/23 Room:[facility] A Patient Name: Carolina Hightower Allergies: Aspirin, [...] on last fill dates from patient's [facility]. Home medications to restart if there [...] 09/12/23 Time: 4:15 PM 09/12/2023 4:18 PM aKylin Camarillo, PharmMelodie * Latha Lester RD - 09/12/2023 9:48 AM EST Nutrition Assessment Type and Reason for [...] which remains her current. She is tolerating FLDwith no n/v) Weight Loss: No significant weight loss (Pt reports a UBW of 200# and RD obtained a bed weight of 205.6#. 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 Pt was placed on lactulose, paracentesis ordered but was unsuccessful d/t insufficient fluid. General Surgery consulted and rec'd slow diet advancement, monitor ascites for paracentesis and hold off on NG tube for now. ADM was consulted for substance abuse--pt's UDSwas negative on admission and she is not [...] of 205.6#. She visually appears well nourished. Shedenies special diets at home or food allergies. Denied needs from RD. Estimated Daily Nutrient Needs: Energy Requirements Based On: Kcal/kg Weight Used for Energy Requirements: [place] Weight for Energy Calculation (kg): 50 kg Total Energy Requirements (kcals/day): 27-32 kcal/kg = 4154-0909 kcal/day Weight Used for Protein Requirements: [place] Weight in Kg Used for Protein Requirements: [...] Ordered Anthropometric Measures: Height: 157.5 cm (5' 2.01) Current Body Weight: 93.3 kg (205 lb 9.6 oz) (09/12 bed) Admission Body Weight: (No weight on admission) Usual Body Weight: 90.7 kg (200 lb) (200# stated. Very limited per chart: 12/02/22 208#, 09/29/22 209#,05/26/22 198#) % Weight Change (Calculated): 2.8 [place] Body Weight (lbs) (Calculated): 110 lbs [place] Body Weight (Kg) (Calculated): 50 kg % [place] Body Weight (Calculated): 186.9 % BMI (kg/m2) [...] soon to determine Latha Lester RD Contact: *[phone] * Saima Lim MD - 09/12/2023 9:04 AM EST Images from the original note were not included. Hospitalist Progress Note 09/12/2023 Subjective: Admit Date: 09/09/2023 PCP: No primary care provider on file. Room#: W7-726/W726 A Brief Hospital course: Patient is 47-year-old with history of cirrhosis, GERD, substance abuse who comes into hospital with complaints of abdominal pain. Patient was seen in the ER and CT abdomen done which showed concern for partial small bowel obstruction. Consultation was placed to surgery. Initially she was kept NPO.Patient was seen with surgery and recommended starting [...] Emergency Contact: John Hightower Relation: Spouse Saima Lim MD Division of Hospitalist Medicine [facility] * Judah Valentine MD - 09/11/2023 1:44 PM EST Images from the original note were not included. Hospitalist Progress Note 09/11/2023 Subjective: Admit Date: 09/09/2023 PCP: No primary care provider on file. Room#: W7-726/W7-726 A Interval History: Patient is 47-year-old with history of cirrhosis, GERD, [facility]. Patient was seen in the ER and CT abdomen done which showed concern for partial small bowel obstruction. Consultation was placed to surgery. Initiallyshe was kept NPO. Patient was seen with surgery and recommended starting clear liquid diet and no surgical intervention needed. Consultation was also placed ADM for substance abuse and to have signedoff at this time. 09/12: Patient alert, chart [...] ending 09/11/23 1344 LABS: CBC: Recent Labs 09/09/23184709/10/2362109/11/23 0030 WBC 9.4 8.2 7.9 RBC 4.56 4.05 3.80 HGB 10.4* 9.1* 8.6* HCT 32.4* 28.8* 27.4* MCV 71.1* 71.2* 72.2* RDW 21.6* 21.4* 21.6* PLT 95* 79* 61* BMP: Recent Labs 09/09/23184709/10/2362109/11/23 0030 NA 136 138 137 K 4.3 4.0 3.4* CL 109* 113* 111* CO2 19* 21* 17* BUN 7 7 8 CREATININE 0.73 0.81 0.73 GLUCOSE 139* 90 76 CALCIUM 8.7 8.6 8.5 ANIONGAP 8 4 9 LIVER PROFILE: Recent Labs 09/09/23184709/10/2322 09/11/23 0030 AST 124* 103* 98* ALT [...] Judah Valentine MD Division of Hospitalist Medicine [facility] * Marielos Stewart - 09/11/2023 12:24 PM EST Nutrition rescreen completed. Patient is NPO/Clear liquid >3 days with cirrhosis. Refer to Dietitian. DUTCH Bowers * Judah Valentine MD - 09/10/2023 1:34 PM EST Patient seen, chart reviewed, please review H&P [...] continue to follow closely. documented in this [facility]12-21-2023 Hospital course Narrative* Saima Lim MD - 09/15/2023 12:04 PM EST Discharge Summary Carolina Hightower : 1975 ADMIT [...] placed to surgery. Initially she was kept NPO.Patient was seen with surgery and recommended starting [...] SIGNIFICANT DIAGNOSTIC STUDIES: US guided abdominal paracentesis [[id number]] Collected: 09/14/23 1137 Order Status: Completed Updated: 09/14/23 886 Narrative: Patient Name: CAROLINA HIGHTOWER [facility] 1975 [id number] Exam Date/Time: 09/14/2023 09:36 Procedure: US GUIDED ABDOMINAL PARACENTESIS Ordering Provider: LIM HARIKRISHNA Reason For Exam: Abdominal distention, pain PROCEDURE: Ultrasound-guided paracentesis PROCEDURAL PERSONNEL Advanced Practice Provider: Windy Pastor PA-C Attending physician, Max Huerta M.D., was available in the department if needed. Indication: Ascites Additional clinical history: None Complications: No immediate complications. Impression: Ultrasound-guided paracentesis with drainage of 1.7 L of clear yellow fluid. PROCEDURE SUMMARY: - Limited abdominal ultrasound - Ultrasound-guided paracentesis - Additional procedure(s): None PROCEDURE DETAILS: Pre-procedure Consent: Informed consent for the procedure including risks, benefits and alternatives was obtainedand time-out was performed prior to the procedure. [...] 11:36 AM EST US guided abdominal paracentesis [[id number]] Collected: 09/10/23853 Order Status: Completed Updated: 09/10/23854 Narrative: Patient Name: CAROLINA HIGHTOWER : 1975 [id number] Exam Date/Time: 09/10/2023 08:29 Procedure: US GUIDED [...] performed. Report Dictated on Electronically Signed By: Lynn Edwards MD Electronically Signed Date/Time: 09/10/2023 8:[address] abdomen pelvis w contrast [[id number]] Collected: 09/09/232018 Order Status: Completed Updated: 09/09/232028 [...] contrast enhancement without evidence of hydronephrosis. Multiple nonobstructingright renal calculi, the largest of which measures [...] of dilated (up to 5 cm) loops ofjejunum in the left upper quadrant, which appear [...] 8:28 PM EST XR chest 1 view [[id number]] Collected: 09/09/231846 Order Status: Completed Updated: 09/09/231848 Narrative: Patient Name: CAROLINA HIGHTOWER : 1975 [id number] Exam Date/Time: 09/09/2023 18:44 Procedure: XR CHEST [...] Your Medications These medications were sent to [facility] [place] - [id number] [place] [id number] desvenlafaxine 100 MG 24 hr tablet doxepin 10 MG capsule traZODone 100 MG tablet DIET: Adult diet Regular ACTIVITY: No restriction. COMPLEXITY OF FOLLOW UP: [] Moderate Complexity: follow up within 7-14 calendar days (05957) [] Severe Complexity: follow up within 7 calendar days (55969) FOLLOW UP TESTING, PENDING RESULTS OR REFERRALS AT TRANSITIONAL CARE VISIT: [] Yes [] No PENDING STUDIES: DISPOSITION: Home FACILITY/HOME CARE AGENCY NAME: Follow up with Cristiana Strauss MD [address] [facility] [address] [facility] [phone] Schedule an appointment as soon as possible [...] frame. DISCHARGE TIME: 43 minutes SIGNED: Saima Lim MD 09/15/2023, 12:04 PM documented in this [facility]12-21-2023 NoteHospitalist Progress Note 09/15/2023 Subjective: Admit Date: 09/09/2023 [...] 5 LIVER PROFILE: No results for input(s): AST, ALT, BILITOT, ALKPHOS, PROT in the last 72 hours. No lab exists for component: LABALBU PT/INR: No results for input(s): PROTIME, INR in the last 72 hours. CARDIAC [...] 1,000 mL enema, 1 enema, Rectal, TID vczedzwl-lkafvlznir-jktybafir, , Topical, TID pantoprazole (ProtoNix) 40 mg [...] Pedersen MD [facility] Division of Hospitalist Medicine [facility]12-20-2023 Note* Care Coordination - Jimi Jackson RN - 09/14/2023 2:54 PM EST Chart reviewed. Patient had paracentesis today with 1700 ml removed. Surgery is following patient for likely ileus -->no plans for intervention and recommend ADAT. Current discharge plan is home no needs once medically stable. [id number]* Care Coordination - Jimi Jackson RN - 09/14/2023 2:54 PM EST Chart reviewed. Patient had paracentesis today with 1700 ml removed. Surgery is following patient for likely ileus -->no plans for intervention and recommend ADAT. Current discharge plan is home no needs once medically stable. [facility]12-20-2023 NoteHospitalist Progress Note 09/14/2023 Subjective: Admit Date: 09/09/2023 PCP: No primary care provider on file. Room#: 7726/W7726 A Brief Hospital course: Patient is 47-year-old [...] PROT 6.1* PT/INR: No results for input(s): PROTIME, INR in the last 72 hours. CARDIAC [...] 1,000 mL enema, 1 enema, Rectal, TID lrtqugms-pamwrxnotc-xgiudkuoy, , Topical, TID pantoprazole (ProtoNix) 40 mg [...] Pedersen MD [facility] Division of Hospitalist Medicine [facility]12-20-2023 Note* Perioperative Nursing Note - Marimar Velasquez RN - 09/14/2023 9:19 AM EST Patient to ultrasound department for paracentesis. History, medications and allergies reviewed. Samuel Pastor PA-C in to speak with patient. Informed consent obtained. 1700 mL clear yellow colored fluid removed. Patient tolerated procedure well. Bandaid applied to site. Patient discharged to [facility]12-20-2023 Note* Perioperative Nursing Note - Marimar Velasquez RN - 09/14/2023 9:19 AM EST Patient to ultrasound department for paracentesis. History, medications and allergies reviewed. Samuel Pastor PA-C in to speak with patient. Informed consent obtained. 1700 mL clear yellow colored fluid removed. Patient tolerated procedure well. Bandaid applied to site. Patient discharged to [facility]12-19-2023 NoteHospitalist Progress Note 09/13/2023 Subjective: Admit Date: 09/09/2023 PCP: No primary care provider on file. Room#: W7-193/W1-362 A Brief Hospital course: Patient is 47-year-old [...] John Hightower Relation: Spouse Secondary Emergency Contact: Luis Miguel Hightowerey Mobile Relation: Daughter Saima Pedersen MD [facility] Division of Hospitalist Medicine [facility]12-19-2023 NoteCare Management Progress Note Patient remains on 7W [...] of Stay (Days): 4 GMLOS: No GMLOS [facility]* Care Coordination - Meg Herrmann RN - 09/13/2023 7:35 AM EST Images from the original note [...] Stay (Days): 4 GMLOS: No GMLOS Documented [employer]12-19-2023 Note* Care Coordination - Meg Herrmann RN - 09/13/2023 7:35 AM EST Images from the original note [...] Stay (Days): 4 GMLOS: No GMLOS Documented [facility] [id number] NoteHospitalist Progress Note 09/12/2023 Subjective: Admit Date: 09/09/2023 [...] Emergency Contact: John Hightower Relation: Spouse Saima Lim MD Division of Hospitalist Medicine [facility]12-18-2023 Note* Care Coordination - Meg Herrmann RN - 09/12/2023 10:19 AM EST Care Managment Initial Assessment Date: 09/12/2023 Patient Name: Carolina Hightower : 1975 Patient Information Source of Information: Patient Cognition/Language: WFL - Within Functional Limits Permission given to speak with patient inside sales account representative/caregiver as indicated: Yes Confirmation of Payer with patient/family: Yes Payer Name: [employer] [place]: No Confirmation of Primary Care Physician: Confirmed [...] home with Significant Other. Meg Herrmann RN [facility]12-18-2023 Note* Care Coordination - Meg Herrmnan RN - 09/12/2023 10:19 AM EST Care Managment Initial Assessment Date: 09/12/2023 Patient Name: Carolina Hightower : 1975 Patient Information Source of Information: Patient Cognition/Language: WFL - Within Functional Limits Permission given to speak with patient inside sales account representative/caregiver as indicated: Yes Confirmation of Payer with patient/family: Yes Payer Name: [employer] [place]: No Confirmation of Primary Care Physician: Confirmed [...] home with Significant Other. Meg Herrmann RN [id number] Note* Care Coordination - Kaylin Rivera RN - 09/11/2023 3:56 PM EST Attempted to complete Initial assessment over the phone. Patient currently unavailable/off unit. Will try again as time allows. TCC will follow. [facility] [id number] Note* Care Coordination - Kaylin Rivera RN - 09/11/2023 3:56 PM EST Attempted to complete Initial assessment over the phone. Patient currently unavailable/off unit. Will try again as time allows. TCC will follow. [facility] [id number] NoteHospitalist Progress Note 09/11/2023 Subjective: Admit Date: 09/09/2023 PCP: No primary care provider on file. Room#: 7-726/[facility]726 A Interval History: Patient is 47-year-old with [...] Emergency Contact: John Hightower Relation: Spouse Judah Urbano Valentine MD Division of Hospitalist Medicine [address]17-2023 NoteADDICTION MEDICINE CONSULTATION H&P Patient: Carolina Hightower Admit [...] 98% Physical Exam Vi (more content not included)...[facility]12-17-2023 Hospital Discharge instructions* Discharge Instructions* Jozef Cordova MD - 09/11/2023 11:48 AM EST Images from the original note were not included. [facility] PROGRAMS __ Addiction Medicine Intensive Outpatient Program [place] ([facility]): [phone] [place]: [phone] [place]: [phone] Behavioral Health Intensive Outpatient Program [place] ([facility]): [phone] [place]: [phone] First Step [place] ([facility]): [phone] [place]: [phone] Partial Hospitalization Program [place] ([facility]): [phone] Traumatic Stress Center [place] ([facility]): [phone] [facility] [place] ([facility]): [phone] Alcoholics Anonymous Meetings [email or web address] [facility] [address] [place] [address], [address], [place] [address] * Additional Instructions* Saima Lim MD - 09/15/2023 12:01 PM EST F/U with PCP, GI, Addiction Medicine documented in this [facility]12-17-2023 Consult note* Jozef Cordova MD - 09/11/2023 11:35 AM ESTAssociated Order(s): IP CONSULT TO ADDICTION MEDICINE Images from [...] Otherwise, she is using marijuana regularly now andthat is it. She denies going thru withdrawal [...] trace ascites. No significant pocket of fluid amenableto ultrasound guided paracentesis. Trace ascites, not amenable to ultrasound-guided paracentesis. Paracentesis not performed. Report Dictated on Electronically Signed By: Lynn Edwards MD Electronically Signed Date/Time: 09/10/2023 8:[address] abdomen pelvis w contrast Result Date: 09/09/2023 Patient Name: CAROLINA HIGHTOWER : 1975 Exam Date/Time: 09/09/2023 20:11 Procedure: CT ABDOMEN PELVIS W CONTRAST Ordering Provider: HRARIS KASSIDY Reason For Exam: abdominal pain, nausea and vomiting CT ABDOMEN AND PELVIS WITH CONTRAST CLINICAL INDICATION: Abdominal pain. TECHNIQUE: Multi-axial 3mm sections through the abdomen and pelvis following 75 mL of Isoview contrast media. No oral contrast was administered. Coronal and sagittalreconstructions were reviewed. Dose reduction was employed with [...] to more normal caliber bowel. No vascular pedicletwisting identified. No bowel wall pneumatosis. Large Bowel: Tentative identification of the normalappendix. No inflammatory change or bowel dilatation is noted. Urinary bladder: Unremarkable. Abdominal wall/soft tissues: No ventral hernia is evident. Pelvic organs/viscera: The uterus is present. Inguinal: No lymphadenopathy. Osseous structures: Unremarkable osseous structures. No suspicious osseous lesion. 1. Findings concerning for small bowel obstruction including loops of dilated (up to 5 cm) loops ofjejunum in the left upper quadrant, which appear [...] Name: CAROLINA HIGHTOWER : 1975 [id number] Exam Date/Time: 09/09/2023 18:44 Procedure: XR CHEST [...] 455 ms QTC Interval 501 ms P [place] 55 degrees QRS [place] -7 degrees T Wave [place] 28 degrees [place] Interval 157 ms CBC auto differential Collection [...] chemical dependency related issues. This included a faceto face evaluation and physical examination, and coordinating care on a substance use disorder treatment plan as well as documenting clinical information on the day of visit. [facility]12-17-2023 Consult note* Jozef Cordova MD - [facility]2023 11[facility] IP CONSULT TO ADDICTION MEDICINE Images from [...] Otherwise, she is using marijuana regularly now andthat is it. She denies going thru withdrawal [...] trace ascites. No significant pocket of fluid amenableto ultrasound guided paracentesis. Trace ascites, not amenable to ultrasound-guided paracentesis. Paracentesis not performed. Report Dictated on Electronically Signed By: Lynn Edwards MD Electronically Signed Date/Time: 09/10/2023 8:54 [...] No oral contrast was administered. Coronal and sagittalreconstructions were reviewed. Dose reduction was employed with [...] to more normal caliber bowel. No vascular pedicletwisting identified. No bowel wall pneumatosis. Large Bowel: Tentative identification of the normalappendix. No inflammatory change or bowel dilatation is noted. Urinary bladder: Unremarkable. Abdominal wall/soft tissues: No ventral hernia is evident. Pelvic organs/viscera: The uterus is present. Inguinal: No lymphadenopathy. Osseous structures: Unremarkable osseous structures. No suspicious osseous lesion. 1. Findings concerning for small bowel obstruction including loops of dilated (up to 5 cm) loops ofjejunum in the left upper quadrant, which appear [...] 455 ms QTC Interval 501 ms P [place] 55 degrees QRS [place] -7 degrees T Wave [place] 28 degrees [place] Interval 157 ms CBC auto differential Collection [...] chemical dependency related issues. This included a faceto face evaluation and physical examination, and coordinating care on a substance use disorder treatment plan as well as documenting clinical information on the day of visit. documented in this [facility]SCommunity [facility] [id number] Nurse Note* Jose Alejandro Nava RN - 09/11/2023 9:14 AM EST Pt was found wandering the hospital by security, confused. Pt brought back by security and she saidshe was going outside to smoke. She was very upset that she could not have a smoke. Pt threatened to punch someone in the face. Pt is confused. [id number] Nurse Note* Jose Alejandro Nava RN - 09/11/2023 9:14 AM EST Pt was found wandering the hospital by security, confused. Pt brought back by security and she saidshe was going outside to smoke. She was very upset that she could not have a smoke. Pt threatened to punch someone in the face. Pt is confused. documented in this [facility]12-16-2023 NoteAttending History and Physical Admit Date: 09/09/2023 PCP: [...] PROT 7.2 PT/INR: No results for input(s): PROTIME, INR in the last 72 hours. CARDIAC ENZYMES: Recent Labs 09/09/23 1848 09/09/23 2205 09/10/23 0105 TROPONINI <0.012 <0.012 <0.012 Procalcitonin: No results found for: PROCAL Urine Culture: No results found for this or any previous visit. COVID-19 PCR: No results for input(s): COVID19 in the last 72 hours. I revie (more content not included)...[facility]12-16-2023 History and physical note* Cindi Salas MD - 09/10/2023 5:22 AM EST Images from the original note [...] states woke up this AM w/ acute worseningof her chronic abdominal pain. Pt denies any [...] of dilated (up to 5 cm) loops ofjejunum in the left upper quadrant, which appear [...] PROT 7.2 PT/INR: No results for input(s): PROTIME, INR in the last 72 hours. CARDIAC [...] Pt understands that I have also ordered 200mgLactulose enema TID - Recheck level in AM [...] MD Division of Hospitalist Medicine Inpatient Medical Services/[facility] [employer] Work Phone: [phone] History and physical note* Cindi Salas MD - 09/10/2023 5:22 AM EST Images from the original note [...] states woke up this AM w/ acute worseningof her chronic abdominal pain. Pt denies any [...] of dilated (up to 5 cm) loops ofjejunum in the left upper quadrant, which appear [...] PROT 7.2 PT/INR: No results for input(s): PROTIME, INR in the last 72 hours. CARDIAC [...] Pt understands that I have also ordered 200mgLactulose enema TID - Recheck level in AM [...] Relation: Spouse Cindi Salas MD [facility] Inpatient Medical Services/[facility] documented in this [facility]12-16-2023 Emergency department Note* Laura Antony RN - 09/10/2023 5:00 AM EST Report given to 7W at this time. Transport en route. Laura Antony RN 09/10/23 0501 [facility]Ahllnu33-75-1522 Emergency department Note* Laura Antony RN - 09/10/2023 5:00 AM EST Report given to 7W at this time. Transport en route. Laura Antony RN 09/10/23 0501 * Afua Carolann Haas - 09/10/2023 4:47 AM EST They are here now to transport the patient to [facility] 09/10/23 0447 * [facility] - 09/10/2023 4:32 AM EST [facility] ETA 0430 RN will call report in a few :) Afua Howells 09/10/23 0432 * JOSE Collins - 09/09/2023 6:18 PM EST EMERGENCY DEPARTMENT ENCOUNTER Pt Name: Carolina Hightower [...] abdominal surgeries. Reports that she is able totolerate liquid oral intake. States that she has [...] bedside and states that the patient seems off. When this was further questioning patient's family [...] of dilated (up to 5 cm) loops ofjejunum in the left upper quadrant, which appear [...] Culture. Procedure Abnormality Status --------- ------ Complete Urinalysis[[id number]] Abnormal Final result Please view results for [...] although patient is A&O x 4 and answeringquestions appropriately. Imaging results per radiology CT abdomen [...] known cirrhosis patient and concern for esophageal varices.Patient will be admitted to the medical team for bowel rest, further management of small bowel obstruction, general surgery consultation. Diagnosis (mild, severe, acute, chronic, stable, unstable) small bowel obstruction. Disposition admission to medical service at [facility]. [facility] unfortunately does not have the capacity to perform paracentesis if deemed necessary. Given this illness provider would like patient be transferred to [facility] for small bowel obstruction management, [...] are any questions or concerns please feel freeto contact the dictating provider for clarification.) JOSE Collins (electronically signed) Emergency Medicine Provider JOSE Collins 09/09/232117 * Lenny Macdonald MD - 09/09/2023 6:18 PM EST Emergency Department Encounter [facility] Patient: Carolina Hightower : 1975 Date of Evaluation: 09/09/2023 ED Supervising Physician: Lenny Macdonald MD I independently examined and evaluated Carolina Hightower. This will serve as my Supervisory note as the emergency room clinician of record and shared attestation. Idid perform a substantive portion of the visit [...] on-call surgery who recommended admission. After discussion withinpatient medicine team [facility] [...] made by myself in conjunction with the Resident/DARWIN. I also supervised lopez portions of any procedures performed by the Resident/DARWIN. For all further details of the patient's emergency department visit, please see their documentation. (Comment: Please note this report has been produced using speech recognition software and may contain errors related to that system including errors in grammar, punctuation, and spelling, as well as words and phrases that may be inappropriate. If there are any questions or concerns please feel freeto contact the dictating provider for clarification.) Lenny Macdonald MD Acute Care [facility] Lenny Macdonald MD 09/12/23 1500 * Vanessa Hughes RN - 09/09/2023 6:18 PM EST Pt c/o abdominal pain that began this afternoon, states that she has hx of cirrhosis. Family statesshe seems off. documented in this [facility]12-16-2023 Emergency department Note* [facility] - 09/10/2023 4:47 AM EST They are here now to transport the patient to [facility] 09/10/23 3397 [facility]12-16-2023 Emergency department Note* Afua Vuong Waldo - 09/10/2023 4:32 AM EST [facility] ETA 0430 RN will call report in a few :) Afua S Waldo 09/10/23 0432 [facility]12-15-2023 Emergency department Triage note* Vanessa Hughes RN - 09/09/2023 6:18 PM EST Pt c/o abdominal pain that began this afternoon, states that she has hx of cirrhosis. Family statesshe seems off. [facility]12-15-2023 Physician Emergency department Note* JOSE Collins - 09/09/2023 6:18 PM EST EMERGENCY DEPARTMENT ENCOUNTER Pt Name: Carolina Hightower [...] abdominal surgeries. Reports that she is able totolerate liquid oral intake. States that she has [...] bedside and states that the patient seems off. When this was further questioning patient's family [...] of dilated (up to 5 cm) loops ofjejunum in the left upper quadrant, which appear [...] Culture. Procedure Abnormality Status --------- ------ Complete Urinalysis[[id number]] Abnormal Final result Please view results for [...] although patient is A&O x 4 and answeringquestions appropriately. Imaging results per radiology CT abdomen [...] known cirrhosis patient and concern for esophageal varices.Patient will be admitted to the medical team for bowel rest, further management of small bowel obstruction, general surgery consultation. Diagnosis (mild, severe, acute, chronic, stable, unstable) small bowel obstruction. Disposition admission to medical service at [facility]. [facility] unfortunately does not have the capacity to perform paracentesis if deemed necessary. Given this illness provider would like patient be transferred to [facility] for small bowel obstruction management, [...] are any questions or concerns please feel freeto contact the dictating provider for clarification.) JOSE Collins (electronically signed) Emergency Medicine Provider JOSE Collins 09/09/232117 [facility] HospitalXyfiqr45-82-2871 Physician Emergency department Note* Lenny Macdonald MD - 09/09/2023 6:18 PM EST Emergency Department Encounter [facility] Patient: Carolina Hightower : 1975 Date of Evaluation: 09/09/2023 ED Supervising Physician: Lenny Macdonald MD I independently examined and evaluated Carolina Hightower. This will serve as my Supervisory note as the emergency room clinician of record and shared attestation. Idid perform a substantive portion of the visit [...] on-call surgery who recommended admission. After discussion withinpatient medicine team [facility] [...] made by myself in conjunction with the Resident/DARWIN. I also supervised lopez portions of any procedures performed by the Resident/DARWIN. For all further details of the patient's emergency department visit, please see their documentation. (Comment: Please note this report has been produced using speech recognition software and may contain errors related to that system including errors in grammar, punctuation, and spelling, as well as words and phrases that may be inappropriate. If there are any questions or concerns please feel freeto contact the dictating provider for clarification.) Lenny Macdonald MD Acute Care [facility] Lenny Macdonald MD 09/12/23 1500 PER [employer] Work Phone: [phone] [id number] Discharge summary Author Darius Bobby [facility] August 22, 2023 2:55pm Note Date/Time August 22, 2023 7:59am [facility] Medical Records Department [address] [place] [address] Emergency Department Summary 08/22/23 MR#: [id number] Acct: [id number] Name: CAROLINA HIGHTOWER Rep #:[id number] : 1975 47 From: Darius Rosales DO PCP: Dr. Dacia Acosta MD Status:RE G ER Location: ED HPI HPI - Psych History of Present Illness Chief Complaint: Mental Health Narrative Narrative: 47-year-old female presenting with depression. Patient was brought in by [place] [employer]. Patient states that she stated she wanted to kill herself and kill all the people in [place]. She states that she only said this to try to get help. She is feeling very depressed because this is an anniversary of her son's a couple of years ago. She does not have a plan for suicide. She does not have a plan to kill anybody. She states that she does feel like she needs help. She states she is doing drugs and will do anything she can get her hands on. She states she drank a half of fifth of Bacardi last night. She states he is not on any medications currently because prescriptions were mailed and and she somehow missed the prescriptions. Patientstates she has no history of suicide attempts but does have history of depression. She states that her psychiatrist that she sees will prescribe her any medication for anxiety but she has been treated for depression. PFSH PFSH Medical History Acute insomnia Anemia Anxiety Anxiety and depression Ascites Chronic anemia Cirrhosis of liver COPD (chronic obstructive pulmonary disease) Depression Difficulty chewing Gastric reflux Hepatitis History of diverticulitis History of edema History of pain when walking History of renal disease Hyperbilirubinemia Injury of head and neck Loss of consciousness Low iron Marijuana use Migraine headache MRSA infection Obesity Open wound Polysubstance abuse Rash Restless legs Seizures Shortness of breath on exertion Smoker Substance abuse Thrombocytopenia Tobacco use Home Medications desvenlafaxine 100 mg tablet,extended release 24 hour 100 mg PO DAILY NERVE PAIN02/20/19 [History Last Taken Unknown] Vitamin D3 1,250 mcg OTHER QWEEK SUPPLEMENT 05/20/22 [History Last Taken Unknown] topiramate 100 mg tablet 100 mg PO BID PER GASTRO 05/20/22 [History Last Taken Unknown] trazodone 100 mg tablet 100 mg PO QHS SLEEP #1 TAB 05/21/22 [Rx Last Taken Unknown] aripiprazole 30 mg tablet 30 mg PO DAILY 09/14/22 [History Last Taken Unknown] gabapentin 100 mg capsule 100 mg PO Q12H 07/20/23 [History Last Taken Unknown] lactulose 20 gram/30 mL oral solution 20 g (30 mL) PO TID 30 days #2,880 mL 07/22/23 [Rx Last Taken Unknown] nadolol 20 mg tablet 20 mg PO DAILY 30 days #30 tabs 07/22/23 [Rx Last Taken Unknown] spironolactone 50 mg tablet 75 mg (1.5 x 50 mg) PO DAILY 30 days #45 tabs 07/22/23 [Rx Last Taken Unknown] Allergy/AdvReac Type Severity Reaction Status Date / Time bupropion HCl Allergy SEIZURES Verified 08/10/23 13:21 [From Wellbutrin] codeine Allergy Rash Verified 08/10/23 13:21 Family History Mother Diabetes Father Cancer HX Throat CA. 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, marijuana, heroin and methamphetamine seatbelt use: always do you feel safe at home: Yes ROS ROS ED Constitutional Constitutional ED: Denies chills, fever(s) or sweats Eyes Eyes: Denies blurry vision or change in vision ENT ENT ED: Denies ear pain or sore throat Cardiovascular Cardiovascular: Denies chest pain, palpitations or racing heartbeat Respiratory/Chest Respiratory/Chest: Denies cough, dyspnea or sputum Gastrointestinal Gastrointestinal: Denies abdominal pain, constipation, diarrhea, nausea or vomiting Genitourinary Genitourinary ED: Denies dysuria, hematuria or urinary frequency Musculoskeletal Musculoskeletal: Denies arthralgias, myalgias or neck pain Integumentary Denies abscess, Abrasions or rash Neurologic Neurologic: Denies headache(s), paresthesias or weakness Psychiatric Psychiatric: Reports anxiety, depression and suicidal thoughts; Denies suicidal ideation Endocrine Endocrinology: Denies polydipsia or polyuria EXAM Physical Exam Const Vital Signs: 08/22/23 06:55 08/22/23 13:45 Temperature 97.5 F L 97.6 F L Temperature Source Temporal Temporal Pulse Rate 79 71 Respiratory Rate 18 18 Blood Pressure 147/73 H 131/77 H Blood Pressure Mean 97 95 Pulse Ox 97 97 Oxygen Delivery Method Room Air Positive well nourished and obese General Appearance ED: NAD; Negative for pallor Nutritional Appearance: obese HEENT normocephalic and atraumatic Eyes PERRL General Eye ED: Negative for pale conjunctiva or scleral icterus Resp normal respiratory effort Auscultation: Negative for rales, rhonchi or wheezes GI non-tender and non-distended Neuro oriented x3 and CN's II-XII intact bilaterally Psych mental status grossly normal Appearance: appropriate Attitude: calm Activity / Motor Behavior: appropriate eye contact Speech: normal speech Thought Process: No disorganized and No confused Thought Content: suicidality, No homicidality and No phobia(s) Memory / Cognition: memory grossly intact Insight: fair Judgement: fair Skin General Skin Exam: Negative for jaundice or pallor MDM MDM MDM Narrative Medical decision making narrative: Patient presents initially stating she is suicidal and homicidal, however she told me that she only said this to get help. She does not want to and she states she is does not want to hurt herself because she has other kids that she wants to live for. She does state that she is very depressed and needs help. She is currently not medicated due to medication issues in the mail. She is self treating with drugs and alcohol. I think she would benefit from inpatient care and so that she. She is requesting help. Appropriate clearance labs will be obtained. CBC shows normal white cell count at 6.5. Hemoglobin near baseline at 10.2. Platelets are 74 which is also near baseline. Total bilirubin 1.8, AST 123, ALT 66, alkaline phosphatase 156. This is where they are usually. Ammonia level 76.0. This is slightly higher than her usual range although patient is not confused. I will give her a dose of lactulose 20 g here. Drug screen positive amphetamines, MDMA, cannabinoids. EtOH negative. Patient medically cleared for psychiatric valuation at this time. Patient was seen by the social service agency director and plan is currently to place her. She has been cooperative. Currently social work is looking for a place that can detox her towhich she has been using drugs and alcohol. She will be signed out to incoming ED physician for monitoring until placement can occur. Impression: 1. depression 2. Suicidal thoughts 3. History of cirrhosis Lab Data Labs: Laboratory Results - last 24 hr 08/22/23 08/22/23 08/22/23 07:35 08:25 08:57 WBC 6.5 RBC 4.46 Hgb 10.2 L Hct 33.8 L MCV 75.8 L MCH 22.9 L MCHC 30.2 L RDW Std Deviation 56.9 H RDW Coeff of Katalina 20.7 H Plt Count 74 L Immature Gran % (Auto) 0.200 Neut % (Auto) 54.4 Lymph % (Auto) 29.4 Coos % (Auto) 11.0 H Eos % (Auto) 4.1 Baso % (Auto) 0.9 Absolute Neuts (auto) 3.6 Absolute Lymphs (auto) 1.92 Nucleated RBC % 0 Platelet Estimate MOD DEC Anisocytosis 1+ Sodium 139 Potassium 3.4 L Chloride 110 H Carbon Dioxide 25.0 Anion Gap 4 L BUN 11 Creatinine 0.92 Estim Creat Clear Calc 58.50 Est GFR (MDRD) Af Amer 83 Est GFR (MDRD) Non-Af 68 BUN/Creatinine Ratio 11.9 Glucose 124 H Calcium 8.7 Total Bilirubin 1.80 H AST 123 H ALT 66 H Alkaline Phosphatase 156 H Ammonia 76.0 H Total Protein 6.7 Albumin 3.0 L Globulin 3.7 Albumin/Globulin Ratio 0.8 L Serum , Qual NEGATIVE Urine Opiates Screen NEGATIVE Urine Methadone Screen NEGATIVE Ur Barbiturates Screen NEGATIVE Ur Phencyclidine Scrn NEGATIVE Ur Amphetamines Screen POSITIVE H MDMA (Ecstasy) Screen POSITIVE H U Benzodiazepines Scrn NEGATIVE Urine Cocaine Screen NEGATIVE U Cannabinoids Screen POSITIVE H Ur Drug Screen Comment Ethyl Alcohol < 3.0 Discharge Plan Triage Chief Complaint: Mental Health ED Provider: Darius Rosales Dx/Rx/DC Orders Prescriptions: No Action desvenlafaxine 100 mg tablet extended release 24hr 100 mg PO DAILY spironolactone 50 mg tablet 75 mg PO DAILY 30 Days Qty: 45 2RF nadolol 20 mg tablet 20 mg PO DAILY 30 Days Qty: 30 2RF Rx Instructions: Hold for heart less than 50 or systolic blood pressure less than 100 mmHg. lactulose 20 gram/30 mL solution 20 g PO TID 30 Days Qty: 2880 2RF Patient Comments: HAS BUT NOT USING Rx Instructions: And adjust the frequency to have him goal of 3 bowel movements per day Vitamin D3 1,250 mcg OTHER QWEEK Rx Instructions: TAKES ON MODAY BY MOUTH topiramate 100 mg tablet 100 mg PO BID Rx Instructions: BEFORE MEALS trazodone 100 mg tablet 100 mg PO QHS Qty: 1 0RF aripiprazole 30 mg tablet 30 mg PO DAILY gabapentin 100 mg capsule 100 mg PO Q12H Patient Comments: Take 1 capsule by mouth twice daily Primary Care Provider: Dacia Acosta Referrals: Dacia Acosta MD [Primary Care Provider] - What to do if you have Problems For any increased pain, shortness of breath, bleeding, nausea or vomiting, chestpain, or any unexpected problems, contact your Primary Care Provider. Call [facility] ([phone]) or report to the closest Emergency Room. Call 911 if necessary. 08/22/23 6953 <Electronically signed by Darius Rosales DO> Cosigner Signature (if applicable): CC: Dr. Dacia Acosta MD ~ Signed [facility] Work Phone: 1(829) 916-795211-20-2023 Procedure [facility] 07-21-2023 Progress note Author Michi Forbes [facility] July 21, 2023 1:03pm Note Date/Time July 21, 2023 7 :35am [facility] Medical Records Department [address] [place] [address] Progress Note - Hospitalist 07/21/23 0733 MR#: [id number] Acct: [id number] Name: CAROLINA HIGHTOWER Rep #:[id number] : 1975 47 From: Michi Forbes DO PCP: Dr. Dacia Acosta MD Status:AD M MARTHA Location: MS2 [id number] Subjective Subjective Feeling well. Has had chronic ascites due to cirrhosis from hepatitis C. Has stopped taking the diuretics previously due to the facility that she was living in 20 people there that was cumbersome to use the bathroom. Now it is more convenient using the restroom. Objective Data Objective Data Vital Signs: Vital Signs Temp Pulse Resp BP Pulse Ox O2 Del Method 36.6 C 67 16 108/59 L 98 Room Air 07/21/23 03:04 07/21/23 03:04 07/21/23 03:04 07/21/23 03:04 07/21/23 03:04 07/21/23 03:04 Oxygen Delivery Method Room Air Weight: 99.798 kg Body Mass Index (BMI) 40.4 Intake & Output: Intake and Output for Last 24 Hours 07/19/23 07/20/23 07/21/23 23:59 23:59 23:59 Intake Total 50 / 50 Balance 50 / 50 Lab / Micro Data 07/21/23 05:11 07/21/23 05:11 Labs: Laboratory Results - last 24 hr 07/20/23 18:35: WBC 6.2, RBC 4.19 L, Hgb 9.7 L, Hct 31.6 L, MCV 75.4 L, MCH 23.2L, MCHC 30.7 L, RDW Std Deviation 59.2 H, RDW Coeff of Katalina 21.8 H, Plt Count 59 L, MPV TNP, Immature Gran % (Auto) 0.200, Neut % (Auto) 55.7, Lymph % (Auto) 30.0, Coos % (Auto) 9.1, Eos % (Auto) 4.2, Baso % (Auto) 0.8, Absolute Neuts (auto) 3.5, Absolute Lymphs (auto) 1.87, Nucleated RBC % 0, Platelet Estimate MOD DEC, Plt Morphology Comment LARGE, RBC Morphology N CHROM, Hypochromasia RARE, Anisocytosis 1+, Microcytosis 1+, Ovalocytes RARE, PT 19.6 H, INR 1.7, Sodium 142, Potassium 3.7, Chloride 112 H, Carbon Dioxide 26.0, Anion Gap 4 L, BUN 9, Creatinine 0.94, Estim Creat Clear Calc 57.26, Est GFR (MDRD) Af Amer 82,Est GFR (MDRD) Non-Af 68, BUN/Creatinine Ratio 9.6 L, Glucose 86, Calcium 8.5, Total Bilirubin 1.70 H, Direct Bilirubin 0.87 H, AST 134 H, ALT 76 H, Alkaline Phosphatase 156 H, Total Protein 6.4, Albumin 2.8 L, Globulin 3.6, Lipase 49 07/21/23 05:11: WBC 5.4, RBC 3.88 L, Hgb 8.7 L, Hct 30.0 L, MCV 77.3 L, MCH 22.4L, MCHC 29.0 L D, RDW Std Deviation 60.9 H, RDW Coeff of Katalina 21.8 H, Plt Count 55 L, Immature Gran % (Auto) 0.200, Neut % (Auto) 52.2, Lymph % (Auto) 31.8, Coos % (Auto) 10.6 H, Eos % (Auto) 4.3, Baso % (Auto) 0.9, Absolute Neuts (auto)2.8, Absolute Lymphs (auto) 1.71, Nucleated RBC % 0, Sodium 140, Potassium 3.3 L, Chloride 112 H, Carbon Dioxide 23.0, Anion Gap 5, BUN 8, Creatinine 0.96, Estim Creat Clear Calc 56.07, Est GFR (MDRD) Af Amer 79, Est GFR (MDRD) Non-Af 66, BUN/Creatinine Ratio 8.3 L, Glucose 155 H, Calcium 8.3 L, Total Bilirubin 1.20 H, AST 116 H, ALT 69 H, Alkaline Phosphatase 141 H, Total Protein 5.8 L, Albumin 2.4 L, Globulin 3.4, Albumin/Globulin Ratio 0.7 L Radiography Diagnostic Testing: Radiology Impression Abdomen/Pelvis CT 07/20/23 19:15 IMPRESSION: Cirrhosis and splenomegaly. Ascites. Bilateral nonobstructing renal calculi. Possible wall thickening of the ascending colon. Electronically Signed: Jamaal Reeves DO at 19:45 EDT , Foot X-Ray 07/20/23 19:15 IMPRESSION: Negative. Electronically Signed: Jamaal Reeves DO at 19:52 EDT , Physical Exam Const alert and no apparent distress HEENT head/scalp atraumatic and moist oral mucous membranes Resp normal respiratory effort, no retractions, no use of accessory muscles and clearto auscultation bilaterally Cardio regular rate, regular rhythm, S1 normal heart sound and S2 normal heart sound GI normal to inspection, nondistended, normoactive bowel sounds, soft to palpation and non-tender GI Narrative: distended. Extremity Extremity Narrative: thickened toe nails bilaterally. discolored nails bilaterally. unable to appreciate any subungual hematoma. Neuro Sensorium / Orientation: awake and alert Assessment & Plan Assessment/Plan (1) Ascites: QUALIFIERS: Ascites type: other type Qualified Code(s): R18.8 - Other ascites PLAN: paracentesis ordered and removed 3550cc of fluid. WBCs only 147. Clinically not SBP, DC abx. Patient now agreeable to resuming diuretics to help mitigate ascites. (2) Subungual hematoma of great toe of left foot: QUALIFIERS: Encounter type: initial encounter Qualified Code(s): S90.212A - Contusion of left great toe with damage to nail, initial encounter PLAN: Xray negative. Routine wound care (3) Cirrhosis of liver: QUALIFIERS: Hepatic cirrhosis type: other cirrhosis Qualified Code(s): K74.69 - Other cirrhosis of liver PLAN: h/o Hep C follow up with GI. MELD 13, Child-Palma C (4) Hyperbilirubinemia: PLAN: 2/2 cirrhosis monitor PLAN: Plan Chronic conditions: * depression: desveenlafaxine * GERD PPI DVT prophylaxis: SCDs 07/21/23 1303 <Electronically signed by Michi Forbes DO> Cosigner Signature (if applicable): CC: ~ Signed [facility] Work Phone: 1(364) 396-835810-26-2023 History and physical note Author Gurinder Mittal [facility] July 21, 2023 8:51am Note Date/Time July 20, 2023 8 :56pm [facility] Medical Records Department [address] [place] [address] H&P Exam - Hospitalist 07/20/232055 MR#: [id number] Acct: [id number] Name: CAROLINA HIGHTOWER Rep #:[id number] : 1975 47 From: Gurinder Mittal MD PCP: Dr. Dacia Acosta MD Status:AD M [facility] Location: [facility] NN180-1 HPI - General General Date of Admission: 07/20/23 Date of Service: 07/20/23 Chief Complaint: Abdominal swelling HPI Narrative CAROLINA HIGHTOWER, is a 47 F with a significant history of hep C and cirrhosis with abdominal swelling that started about 2 days ago. Associated with HIS symptoms is abdominal pain and distention that started about 2 days ago. Associated withhis symptoms is abdominal pain and irritation. She denies any fever. Actually she came in because of left big toe symptoms. She reports that about a week ago she fell in the gravel and the skin of her left big toe was peeled off. There was swelling of the left big toe and on the day of presentation the swelling of the left big toe popped open. She reports that she is unable to take care for left foot because her abdomen has severely enlarged. CT scan of the abdomen showed inflammation of ascending colon; and ascites. Emergency department doctor discussed with Dr. Porras, independent distributor who recommended the patient stays at hospital for paracentesis and be started on antibiotics. PFSH Medical History Acute insomnia Anemia Anxiety Anxiety and depression Chronic anemia COPD (chronic obstructive pulmonary disease) Depression Difficulty chewing Gastric reflux Hepatitis History of diverticulitis History of renal disease Low iron Marijuana use Migraine headache MRSA infection Obesity Polysubstance abuse Rash Seizures Shortness of breath on exertion Smoker Substance abuse Thrombocytopenia Tobacco use Home Medications desvenlafaxine 100 mg tablet,extended release 24 hour 100 mg PO DAILY NERVE PAIN02/20/19 [History Last Taken Unknown] Vitamin D3 1,250 mcg OTHER QWEEK SUPPLEMENT 05/20/22 [History Last Taken Unknown] pantoprazole 40 mg tablet,delayed release 40 mg PO BID GERD 05/20/22 [History Last Taken Unknown] topiramate 100 mg tablet 100 mg PO BID PER GASTRO 05/20/22 [History Last Taken Unknown] trazodone 100 mg tablet 100 mg PO QHS SLEEP #1 TAB 05/21/22 [Rx Last Taken Unknown] aripiprazole 30 mg tablet 30 mg PO DAILY 09/14/22 [History Last Taken Unknown] gabapentin 100 mg capsule 100 mg PO Q12H 07/20/23 [History Last Taken Unknown] Allergy/AdvReac Type Severity Reaction Status Date / Time bupropion HCl Allergy SEIZURES Verified 04/25/23 13:53 [From Wellbutrin] codeine Allergy Rash Verified 04/25/23 13:53 Family History Mother Diabetes Father Cancer HX Throat CA. 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, marijuana, heroin and methamphetamine seatbelt use: always do you feel safe at home: Yes ROS ROS Narrative Pertinent positives and pertinent negatives as noted in HPI. All other systems were reviewed and are negative Vital Signs Vital Signs Vital Signs: 07/20/23 16:13 07/20/23 20:20 Temperature 97.4 F L 97.7 F L Temperature Source Temporal Oral Pulse Rate 70 59 L Respiratory Rate 18 16 Blood Pressure 138/88 H 149/83 H Blood Pressure Mean 104 105 Pulse Ox 98 100 Oxygen Delivery Method Room Air Room Air Weight Weight: 101.605 kg Body Mass Index (BMI) 40.9 Physical Exam Narrative Physical exam: General: Well-nourished, well-developed. Head: Normocephalic, atraumatic, no tenderness Eyes: Vision is grossly intact. EOMI ENT, no trauma, moist mucous membranes, no rhinorrhea Neck: Nontender, No thyromegaly. CVS: Regular rate and rhythm. S1-S2 present. No murmur, gallop or rub. Respiratory : clear to auscultation bilaterally, chest wall nontender Abdomen: Soft, nontender. obese abdomen. Bowel sounds hypoactive : Deferred Back: Nontender, no CVA tenderness, no midline spinal tenderness, deformities, step-offs Extremities: Nontender full range of motion, no trauma. Left big toe with swelling, ulcer; subungual hematoma. Right big toe with no swelling, no ulcer and no subungual hematoma Skin: Normal color, no trauma, abrasions Neuro: Alert, oriented, cranial nerves II through XII grossly intact. Psychiatry: Normal mood. Normal affect. Not depressed. Not anxious. Results Lab / Micro Data 07/21/23 05:11 07/21/23 05:11 Labs: Laboratory Results - last 24 hr 07/20/23 18:35: WBC 6.2, RBC 4.19 L, Hgb 9.7 L, Hct 31.6 L, MCV 75.4 L, MCH 23.2L, MCHC 30.7 L, RDW Std Deviation 59.2 H, RDW Coeff of Katalina 21.8 H, Plt Count 59 L, MPV TNP, Immature Gran % (Auto) 0.200, Neut % (Auto) 55.7, Lymph % (Auto) 30.0, Coos % (Auto) 9.1, Eos % (Auto) 4.2, Baso % (Auto) 0.8, Absolute Neuts (auto) 3.5, Absolute Lymphs (auto) 1.87, Nucleated RBC % 0, Platelet Estimate MOD DEC, Plt Morphology Comment LARGE, RBC Morphology N CHROM, Hypochromasia RARE, Anisocytosis 1+, Microcytosis 1+, Ovalocytes RARE, PT 19.6 H, INR 1.7, Sodium 142, Potassium 3.7, Chloride 112 H, Carbon Dioxide 26.0, Anion Gap 4 L, BUN 9, Creatinine 0.94, Estim Creat Clear Calc 57.26, Est GFR (MDRD) Af Amer 82,Est GFR (MDRD) Non-Af 68, BUN/Creatinine Ratio 9.6 L, Glucose 86, Calcium 8.5, Total Bilirubin 1.70 H, Direct Bilirubin 0.87 H, AST 134 H, ALT 76 H, Alkaline Phosphatase 156 H, Total Protein 6.4, Albumin 2.8 L, Globulin 3.6, Lipase 49 Radiology Impression Abdomen/Pelvis CT 07/20/23 19:15 IMPRESSION: Cirrhosis and splenomegaly. Ascites. Bilateral nonobstructing renal calculi. Possible wall thickening of the ascending colon. Electronically Signed: Jamaal Reeves DO at 19:45 EDT , Foot X-Ray 07/20/23 19:15 IMPRESSION: Negative. Electronically Signed: Jamaal Reeves DO at 19:52 EDT , Assessment & Plan Assessment/Plan (1) Ascites: QUALIFIERS: Ascites type: due to alcoholic hepatitis Qualified Code(s): K70.11 - Alcoholic hepatitis with ascites (2) Cirrhosis of liver: QUALIFIERS: Hepatic cirrhosis type: unspecified hepatic cirrhosis Ascites presence: with ascites Qualified Code(s): K74.60 - Unspecified cirrhosis of liver; R18.8 - Other ascites (3) Subungual hematoma of great toe of left foot: QUALIFIERS: Encounter type: initial encounter Qualified Code(s): S90.212A - Contusion of left great toe with damage to nail, initial encounter (4) Skin ulcer of left great toe: QUALIFIERS: Non-pressure ulcer stage: limited to breakdown of skin Qualified Code(s): L97.521 - Non-pressure chronic ulcer of other part of left foot limited to breakdown of skin (5) Hyperbilirubinemia: PLAN: Plan Cirrhosis with ascites/colitis/possible SBP Emergency department doctor Discussed the case with gastroenterology who recommended admission and antibiotics. Ceftriaxone ordered at the emergency department and continued. Hospitalist discussed case with emergency department doctor and patient's will be admitted for paracentesis and antibiotics. PT/INR obtained emergency department, reviewed. PT/INR is 19.6/1.7 GI consult. Worsening hyperbilirubinemia Trend CMP. Subungual hematoma of great toe of left foot Antibiotics as above prophylaxis to prevent infection. Received tetanus at the emergency department DVT prophylaxis: SCDs Time spent in the patient's overall evaluation,decision-making process, review of diagnostic data, adjustment of management, discussion with other providers, nursing and ancillary staff involved in patient's care documentation, 45 minutes. Time spent in the patient's overall evaluation,decision-making process, review of diagnostic data, adjustment of management, discussion with other providers, nursing and ancillary staff involved in patient's care documentation, 45 minutes. Charges/Coding Visit Charges Inpatient E&M: 61803 Init Hosp L2 07/21/23 0851 <Electronically signed by Gurinder Mittal MD> Cosigner Signature (if applicable): CC: Dr. Gurinder Mittal MD; Dr. Dacia Acosta MD~ Signed [facility] Work Phone: 1(580) 187-680010-26-2023 Procedure [facility] 07-20-2023 Discharge summary Author Darius Rosales [facility] July 20, 2023 9:43pm Note Date/Time July 20, 2023 9 :43pm [facility] Medical Records Department [address] [place] [address] Emergency Department Summary 07/20/23 MR#: [id number] Acct: [id number] Name: CAROLINA HIGHTOWER Rep #:[id number] : 1975 47 From: Darius Rosales DO PCP: Dr. Dacia Acosta MD Status:RE G ER Location: ED HPI History of Present Illness Chief Complaint: Laceration Narrative Narrative: 47-year-old female presenting with left toe pain. She states that about a week ago she tripped and hurt her foot and it was bleeding but resolved. She notes that she hit it on something tonight and it was painful and bleeding. She had adressed and come to the emergency room under the amount of bleeding. Bleeding is resolved here. Still some pain in the toe. She is not sure if she broke thetoe. She states she has been unable to do toe care because her stomach has become so large that she cannot reach her feet. She states she has a history ofcirrhosis and hep C. She sees Dr. Porras on an outpatient basis but apparently missed her last visit and does not have another visit to October. She does state that her abdomen is much more distended than usual. She has not had any fevers or chills. No nausea or vomiting. She does complain of abdominal pain which is fairly diffuse. PFSH PFSH Medical History Acute insomnia Anemia Anxiety Anxiety and depression Chronic anemia COPD (chronic obstructive pulmonary disease) Depression Difficulty chewing Gastric reflux Hepatitis History of diverticulitis History of renal disease Low iron Marijuana use Migraine headache MRSA infection Obesity Polysubstance abuse Rash Seizures Shortness of breath on exertion Smoker Substance abuse Thrombocytopenia Tobacco use Home Medications desvenlafaxine 100 mg tablet,extended release 24 hour 100 mg PO DAILY NERVE PAIN02/20/19 [History Last Taken Unknown] Vitamin D3 1,250 mcg OTHER QWEEK SUPPLEMENT 05/20/22 [History Last Taken Unknown] pantoprazole 40 mg tablet,delayed release 40 mg PO BID GERD 05/20/22 [History Last Taken Unknown] topiramate 100 mg tablet 100 mg PO BID PER GASTRO 05/20/22 [History Last Taken Unknown] trazodone 100 mg tablet 100 mg PO QHS SLEEP #1 TAB 05/21/22 [Rx Last Taken Unknown] aripiprazole 30 mg tablet 30 mg PO DAILY 09/14/22 [History Last Taken Unknown] gabapentin 100 mg capsule 100 mg PO Q12H 07/20/23 [History Last Taken Unknown] Allergy/AdvReac Type Severity Reaction Status Date / Time bupropion HCl Allergy SEIZURES Verified 04/25/23 13:53 [From Wellbutrin] codeine Allergy Rash Verified 04/25/23 13:53 Family History Mother Diabetes Father Cancer HX Throat CA. 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, marijuana, heroin and methamphetamine seatbelt use: always do you feel safe at home: Yes ROS ROS ED Constitutional Constitutional ED: Denies chills, fever(s) or sweats Eyes Eyes: Denies blurry vision or change in vision ENT ENT ED: Denies ear pain or sore throat Cardiovascular Cardiovascular: Denies chest pain, palpitations or racing heartbeat Respiratory/Chest Respiratory/Chest: Denies cough, dyspnea or sputum Gastrointestinal Gastrointestinal: Reports abdominal pain; Denies constipation, diarrhea, nausea or vomiting Genitourinary Genitourinary ED: Denies dysuria, hematuria or urinary frequency Musculoskeletal Musculoskeletal: Reports other Details: Left great toe pain ; Denies arthralgias, myalgias or neck pain Integumentary Reports Abrasions and other; Denies abscess or rash Neurologic Neurologic: Denies headache(s), paresthesias or weakness Psychiatric Psychiatric: Denies anxiety, depression, suicidal ideation or suicidal thoughts Endocrine Endocrinology: Denies polydipsia or polyuria EXAM Physical Exam Const Vital Signs: 07/20/23 16:13 07/20/23 20:20 Temperature 97.4 F L 97.7 F L Temperature Source Temporal Oral Pulse Rate 70 59 L Respiratory Rate 18 16 Blood Pressure 138/88 H 149/83 H Blood Pressure Mean 104 105 Pulse Ox 98 100 Oxygen Delivery Method Room Air Room Air Positive well nourished and obese Nutritional Appearance: obese HEENT Reports moist mucous membranes normocephalic and atraumatic Chest Wall inspection of chest normal Resp normal respiratory effort and no retractions Cardio regular rate and regular rhythm GI GI Narrative: Abdomen is distended, positive fluid wave. Palpation: tender Neuro oriented x3 and CN's II-XII intact bilaterally Sensorium / Orientation: alert Motor Exam: strength 5/5 throughout Psych mental status grossly normal Skin Skin Narrative: Abrasion on the medial aspect of the left great toe. No active bleeding. The toenail does look little darkened. It is tender to palpation. No tenderness onthe joint lines. MDM MDM MDM Narrative Medical decision making narrative: Presenting initially for left toe pain which she injured a week ago. The bleeding seems to resolve. Updated her tetanus today and placed her in a dressing. X-rays of the left telemetry my interpretation show no acute fracture. She also complains of abdominal discomfort and tension with a historyof cirrhosis. For this reason I did obtain blood work. Differential includes cirrhosis, ascites, SBP, constipation, obstruction, colitis, diverticulitis, pyelonephritis, pancreatitis. CBC was obtained to assess white blood cell count, hemoglobin, platelets. BMP to assess renal function and electrolytes. LFTs to assess liver function. Lipase to assess for pancreatitis. PT/INR were obtained due to history of cirrhosis and likely need for paracentesis. CBC unremarkable. LFTs slightly more elevated than previous. INR 1.7. CT of the abdomen pelvis with IV contrast shows ascites and possible inflammation of the ascending colon. Discussed the case with Dr. Porras who recommended Rocephin and admission. He will do paracentesis tomorrow. Patient admitted to the hospitalist in stable condition. Impression: 1. Ascites 2. Cirrhosis 3. Left great toe abrasion Lab Data Attestation: I reviewed the patient's lab results. Labs: Laboratory Results - last 24 hr 07/20/23 18:35 WBC 6.2 RBC 4.19 L Hgb 9.7 L Hct 31.6 L MCV 75.4 L MCH 23.2 L MCHC 30.7 L RDW Std Deviation 59.2 H RDW Coeff of Katalina 21.8 H Plt Count 59 L MPV TNP Immature Gran % (Auto) 0.200 Neut % (Auto) 55.7 Lymph % (Auto) 30.0 Coos % (Auto) 9.1 Eos % (Auto) 4.2 Baso % (Auto) 0.8 Absolute Neuts (auto) 3.5 Absolute Lymphs (auto) 1.87 Nucleated RBC % 0 Platelet Estimate MOD DEC Plt Morphology Comment LARGE RBC Morphology N CHROM Hypochromasia RARE Anisocytosis 1+ Microcytosis 1+ Ovalocytes RARE PT 19.6 H INR 1.7 Sodium 142 Potassium 3.7 Chloride 112 H Carbon Dioxide 26.0 Anion Gap 4 L BUN 9 Creatinine 0.94 Estim Creat Clear Calc 57.26 Est GFR (MDRD) Af Amer 82 Est GFR (MDRD) Non-Af 68 BUN/Creatinine Ratio 9.6 L Glucose 86 Calcium 8.5 Total Bilirubin 1.70 H Direct Bilirubin 0.87 H AST 134 H ALT 76 H Alkaline Phosphatase 156 H Total Protein 6.4 Albumin 2.8 L Globulin 3.6 Lipase 49 Radiography Diagnostic Testing: Clinical Impression(s) from Imaging Studies Abdomen/Pelvis CT 07/20/23 19:15 IMPRESSION: Cirrhosis and splenomegaly. Ascites. Bilateral nonobstructing renal calculi. Possible wall thickening of the ascending colon. Electronically Signed: Jamaal Reeves DO at 19:45 EDT , Foot X-Ray 07/20/23 19:15 IMPRESSION: Negative. Electronically Signed: Jamaal Reeves DO at 19:52 EDT , Discharge Plan Triage Chief Complaint: Laceration ED Provider: Darisu Rosales Dx/Rx/DC Orders Prescriptions: No Action desvenlafaxine 100 mg tablet extended release 24hr 100 mg PO DAILY Vitamin D3 1,250 mcg OTHER QWEEK Rx Instructions: TAKES ON MODAY BY MOUTH pantoprazole 40 mg Tablet,Delayed Release (Dr/Ec) 40 mg PO BID Rx Instructions: BEFORE MEALS topiramate 100 mg tablet 100 mg PO BID Rx Instructions: BEFORE MEALS trazodone 100 mg tablet 100 mg PO QHS Qty: 1 0RF aripiprazole 30 mg tablet 30 mg PO DAILY gabapentin 100 mg capsule 100 mg PO Q12H Patient Comments: Take 1 capsule by mouth twice daily Primary Care Provider: Dacia Acosta Referrals: Dacia Acosta MD [Primary Care Provider] - What to do if you have Problems For any increased pain, shortness of breath, bleeding, nausea or vomiting, chestpain, or any unexpected problems, contact your Primary Care Provider. Call [facility] ([phone]) or report to the closest Emergency Room. Call 911 if necessary. 07/20/232142 <Electronically signed by Darius Rosales DO> Cosigner Signature (if applicable): CC: Dr. Dacia Acosta MD ~ Signed [facility] Work Phone: [phone]) 144-602407-31-2023 Hospital Discharge instructions Additional Instructions 1. Apply ice to bruised area 6-10 times a day for the next 3 days. 2. You may take either ibuprofen or Aleve for your pain.[facility] Work Phone: 1(381) 690-202206-29-2023 Miscellaneous Notes* Telephone Encounter - Lyssa Suárez MA - 03/24/2023 9:21 AM EDT Attempted to contact patient to schedule a follow up. Unable to reach. Left detailed message on identified VM to schedule appointment at earliest convenience. The following approved medication requests have been transmitted electronically. Requested Prescriptions Signed Prescriptions Disp Refills gabapentin (NEURONTIN) 100 mg capsule 60 capsule 5 Sig: Take 1 capsule by mouth twice daily for 180 days. Authorizing Provider: DACIA ACOSTA MA * Telephone Encounter - Dacia Acosta MD - 03/22/2023 5:23 PM EDT OK to refill as ordered Dacia Acosta MD * Telephone Encounter - Melisa Vick Ma - 03/22/2023 5:07 PM EDT Last office visit: 05/26/22 F/u scheduled: none Last refilled on: Gabapentin #60 with 5 refills on 05/26/22 Pt needs appt Melisa Vick Ma * Telephone Encounter - Miladis Blair - 03/22/2023 5:01 PM EDT Patient has been identified by name and [...] and advise. Miladis Blair documented in this encounterGal[facility]05-[facility]23 Miscellaneous Notes* Telephone Encounter - Melisa Vick Ma - 01/27/2023 1:50 PM EDT Pt notified. Melisa Vick Ma * Telephone Encounter - Dacia Acosta MD - 01/27/2023 1:40 PM EDT OK for doxycycline and bactroban as ordered Dacia Acosta MD * Telephone Encounter - Bill Valenzuela Ma - 01/27/2023 11:16 AM EDT See message from pt and advise. Bill Valenzuela Ma * Telephone Encounter - Poornima Kim - 01/27/2023 10:46 AM EDT Carolina Hightower is calling Dacia Acosta MD today to request a refill on the antibiotic prescribed for patient open wound on her chin. Also asking for the cream to apply to same wound. Patient is not sure of either of these medication names. Please send RX to [facility] in [place] and advise patient when these have been ordered by provider per patient request. Patient has been identified by name and birthdate. Duration of symptoms: months Person calling: self Call patient at: at home [phone] (home) [phone] (cell) Was an appointment scheduled: No Closing statement: Results or non-symptom based questions: Thank you for calling [facility], your call will be returned within the next business day. Poornima Brown [facility] Electronically signed by Poornima Brown [facility] at 01/27/2023 10:53 AM EDT documented in this encounterGalion Community Hospital05-02-2023 Miscellaneous Notes* Letter - Mammography Coordinator - 01/25/2023 9:22 AM EDT January 26, 2023 PID: [id number] Carolina Hightower [address] [address] Dear Ms. Hightower, Your recent breast imaging [...] dense breast tissue in addition to other riskfactors. If you have a healthcare provider who ordered/prescribed your screening mammogram: Please call [phone] or [phone]: [phone] to schedule an appointment for your additional imaging (if youhave not already done so). If you DO [...] and reports are kept on file at [facility] as part of your permanent medical record, and are available for your continuing care. Thank you for allowing us to help in meeting your health care needs. Sincerely, Dr. Estrada Interpreting Radiologist [facility] (Additional imaging) documented in this encounterGalion Community Hospital03-09-2023 History of Present illness Narrative* JOSE Vega - 12/02/2022 12:58 PM EST Images from the original note were not included. This note was created using LeadFireriter. Subjective Carolina Hightower is a 47 year [...] PAST SURGICAL HISTORY OF 2018 liver bx [facility] ALLERGIES Aspirin, Bupropion, Codeine, Prednisone, and [...] Wt 94.6 kg (208 lb 9.6 oz) LMP11/20/2020 (Approximate) SpO2 98% BMI 38.15 kg/m Physical [...] ER evaluation. JOSE Vega documented in this encounterGalion [facility] Hospital01-07-2023 Miscellaneous Notes* Telephone Encounter - Emory Robledo MA - 10/02/2022 10:30 AM EST Left message of results on secure voicemail. Emory Robledo MA * Telephone Encounter - Kaylin Freed APRN.CNP - 10/02/2022 10:19 AM EST Please call patient and inform that her wound culture is negative. She can quit taking the ATB. She needs to follow up as directed. documented in this encounterGalion Community Hospital01-04-2023 History of Present illness Narrative* Lynn Prabhakar MD - 09/29/2022 6:16 PM EST Patient presents with: Sore Throat: LANCE, fever, rash on chin x2 weeks HPI: Skin Lesion: Location: chin Duration: couple weeks, has happened a few times before (MRSA in April) Pruritis/Pain: very painful Change: getting bigger Drainage/blister/pustule/ulceration: bleeding, clear stuff Treatment: numbing stuff (lidocaine), [...] 1.5cm dry based ulceration left tip of thechin with mild erythema and edema surrounding. No [...] week ago. - COVID WITH FLUA+B, ROUTINE Lynn Prabhakar MD documented in this encounterGalion [facility] Hospital12-21-2022 History of Present illness Narrative* Jean Carlos Brown MA - 09/15/2022 1:08 PM EST POPULATION HEALTH NAVIGATION OUTREACH Action/September 15, 2022 1:09 PM Patient is on HCC Gap list for the following HCC Gaps F32.9 - Major depression NABIL with Dacia Acosta MD was May 26, [...] 08/05/2019 INFLUENZA(1) due on 05/27/2022 Navigation Signature: Jean Carlos Brown MA September 15, 2022 1:09 PM documented in this encounterGalion [facility] Hospital09-28-2022 Miscellaneous Notes* Telephone Encounter - Dacia Acosta MD - 06/23/2022 1:58 PM EDT Her dose was changed to 100 mg bid, and a prescription was sent for this at her last appt. Dacia Acosta MD * Telephone Encounter - Shannon Dawson MA - 06/23/2022 8:52 AM EDT This request is from [facility]. Our prescription is 100 mg taken twice [...] need to notify patient. Shannon Dawson MA Nabil: 04/2022 No appointment scheduled. 10/2022 was cancelled. documented in this encounterGalion Community Hospital08-29-2022 History of Present illness Narrative* Melisa Vick Ma - 05/24/2022 5:13 PM EDT TRANSITION CARE MANAGEMENT (TCM) INITIAL CONTACT [employer] Designer Outreach Provider Action/FYI: 7 day TCM [...] from urgent care. She is placed on Bactrimand Keflex 4 days ago states chin swelling is improving. For the past 2 days lower back pain nontraumatic reported increasing fatigue. Yesterday reported she was more forgetful and confused. She denies urinary symptoms. Cough for the past week. No fevers. History of hepatitis C reported signs of cirrhosis from this in the past. She is at a [facility]. She is not on lactulose or [...] This patient was seen in conjunction with REGULATORY AFFAIRS CONSULTANT, Kaylin. I have independently interviewed and examined the patient and reviewed pertinent history, examination findings, laboratory and plan of management. I have reviewed the note and agree with the documented findings with the few additional points. In brief, patient is 46-year-old female admitted with worsening confusion, forgetfulness for last 2days. She also has cough for the past [...] adherence to lactulose and Xifaxan. Follow-up with . CT abdomen individually reviewed reviewed. CT abdomen shows cirrhotic liver with splenomegaly and resolution of mild mesenteric inflammatory changes seen on the prior study. No ascites. 2. Mild isolated cough with shortness of breath: Patient chest x-ray individually reviewed shows noacute cardiopulmonary abnormality. No fever. Rapid COVID antigen, [...] for provider to review documented in this encounterGalion Community Hospital08-29-2022 Miscellaneous Notes* Telephone Encounter - Melisa Vick Ma - 05/24/2022 5:07 PM EDT Pt notified. She will call to schedule Gastro appt. She is taking the Lactulose. Pt scheduled for TCM visit on 05/26/22. Melisa Vick Ma * Telephone Encounter - Dacia Acosta MD - 05/24/2022 5:04 PM EDT She was in the hospital because she was confused, which was because her liver was not working well,not because of a fall and head injury. She needs to take the Lactulose as prescribed by the hospital, and folllow up with GI . Dacia Acosta MD * Telephone Encounter - Jonathan Diaz LPN - 05/24/2022 2:41 PM EDT Patient called asking status of message. Patient states all she knows is that she fell. Denies any headaches at this time. Was given lactulose and all her other medications she takes were lowered at the hospital but wasn'tgiven scripts for the lower dose. She did complaining of itchy all over and unsure if due to medication. She states that she is unsure what is going on with her. Please review hospital records and advise. * Telephone Encounter - Aranza Posadas - 05/24/2022 12:46 PM EDT Patient Carolina called, sounded very confused was at [facility], thinks got D/C 05/21 for a fall, swelling on the brain. Please advise, . * Telephone Encounter - Bill Valenzuela Ma - 05/24/2022 9:39 AM EDT Records located in scanning on PCP desk. Bill Valenzuela Ma * Telephone Encounter - Roma Matt - 05/24/2022 9:27 AM EDT Carolina Hightower is calling Dacia Acosta MD today Patient was at [facility] this weekend from fall; injury to her head. Patient is confused with information the hospital told her at discharge. Asking the doctor review her records and return call to discuss findings. Patient can be reached at [phone] documented in this encounterGalion Community Hospital08-20-2022 Miscellaneous Notes* Telephone Encounter - Diya Feliciano RN - 05/15/2022 2:47 PM EDT Reason for Call: chin abscess w/ severe pain, new severe headache Outcome: Pt advised to see a physician within 4 hrs. She understands the recommendation and prefersto go to the [place] ED. See note below. Reason for Disposition [...] understands the [facility] by [facility]. Pt refuses offer to speak with virtualist and prefers to have someone take her to the [place] ED. documented in this encounterGalion Community Hospital08-15-2022 History of Present illness Narrative* Dacia Acosta MD - 05/10/2022 3:40 PM EDT Chief Complaint Patient presents with: Follow Up HPI Carolina Hightower is a 46 year old female who presents here today for a wound check. Pt scheduled today for a follow up on a wound check. Pt seen in [facility] on 05/09/22 for evaluation of pain [...] pharmacy closing yesterday. 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 Pain a 9/10 and described as [...] PAST SURGICAL HISTORY OF 2018 liver bx [facility] Family History FAMILY HISTORY Problem Relation [...] affected area three times daily for 10 days.Location: chin gabapentin (NEURONTIN) 400 mg capsule Take 1 capsule by mouth twice daily for 30 days. cyclobenzaprine (FLEXERIL) 10 mg tablet Take 1 tablet by mouth three times daily as needed for muscle spasm or pain. (Patient not taking: Reported on 03/11/2022 ) albuterol HFA (PROAIR HFA) 90 mcg/actuation inhaler Inhale 2 Puffs as instructed every 4 hours as needed. Jykcfiigdgdtlbl-Ccfqanqnc-VX (BROMFED DM) 2-30-10 mg/5 mL syrup Take [...] mouth once daily. (Patient not taking: Reported on05/09/2022) traZODone (DESYREL) 100 mg tablet 200 mg [...] 1. 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 Subjective Patient came in with complaints of pain and infection in her chin. Patient recently was treated in the same area for a infection said it was almost cleared up then she started picking again. Patient unsure of what causes the picking said it might be anxiety. Patient denies any fever chills or othersymptoms at this time. The history is provided by the patient. No hourly sign language interpreter was used. Rash Review [...] PAST SURGICAL HISTORY OF 2018 liver bx [facility] ALLERGIES Aspirin, Bupropion, Codeine, Prednisone, and [...] affected area three times daily for 10 days.Location: chin^Disp: 15 g^Rfl: 0 gabapentin (NEURONTIN) 400 mg capsule^Take 1 capsule by mouth twice daily for 30 days.^Disp: 60 capsule^Rfl: 5 cyclobenzaprine (FLEXERIL) 10 mg tablet^Take 1 tablet by mouth three times daily as needed for muscle spasm or pain.^Disp: 30 tablet^Rfl: 2 (Patient not taking: Reported on 03/11/2022 ) Ufmsrnkjolrbjdu-Glvuafjxc-DU (BROMFED DM) 2-30-10 mg/5 mL syrup^Take 5-10 [...] the ER if anything worsens. Blanca Dawson APRN.COMMUNITY SERVICE OFFICER documented in this encounterGalion Community Hospital08-12-2022 Miscellaneous Notes* Telephone Encounter - Dyan Llamas RN - 05/07/2022 3:01 PM EDT Called and spoke to patient. Told patient that unfortunately, Hugo cannot provide her with any treatment recommendations without first assessing her. Recommended patient contact PCP in mean time. Patient expressed understanding. * Telephone Encounter - Perla Webb - 05/07/2022 2:35 PM EDT Patient calling requesting to talk with Lencho Carter about up coming appointment on 05/25/22. Patient states she has sores on her face that itch very bad and then patient rips the scabs off and they bleed. Patient says it swells, itches and is very painful. Patient requesting some advise to get her to the appointment. Please advise. Patient can be reached at [phone]. Patient doesn't use mychart very well. documented in this encounterGalion Community Hospital06-16-2022 History of Present illness Narrative* Tresa Sandoval APRN.COMMUNITY SERVICE OFFICER - 03/11/2022 3:00 PM EDT This is a 46 year old female [...] PAST SURGICAL HISTORY OF 2018 liver bx [facility] ALLERGIES Aspirin, Bupropion, Codeine, Prednisone, and [...] as instructed every 4 hours as needed. Uojzvwdetvhilir-Fldrzuyvl-PE (BROMFED DM) 2-30-10 mg/5 mL syrup Take [...] were discussed and patient voices understanding. Tresa Sandoval APRN.COMMUNITY SERVICE OFFICER This note was partially generated using Pricing Engine recognition system. Note was reviewed for accuracy. There may be minor misspellings or grammar miscues with Protecode voice recognition. documented in this encounterGalion Community Hospital06-16-2022 Instructions* Patient Instructions* Tresa Sandoval APRN.CNP - 03/11/2022 2:41 PM EDT 1.) Start keflex for skin infection 2.) Try not to touch face to prevent more bacterial growth. 3.) Recommend a gentle cleanser such as Cetaphil face wash. 4.) Schedule appointment with dermatology: Local would be [facility] Garcias or [facility]. 5.) Follow up as needed. documented in this encounterGalion Community Hospital06-16-2022 Miscellaneous Notes* Telephone Encounter - Bill Valenzuela Ma - 03/11/2022 11:50 AM EDT Pt has an appt today with Tresa Sandoval CNP this can be filled at that time. Hasn't been seen since 08/21/21. Bill Valenzuela Ma * Telephone Encounter - Kemal Amato - 03/11/2022 11:13 AM EDT Please send gabapentin to [facility] in [place]. Thank you. documented in this encounterGalion Community Hospital04-19-2022 Miscellaneous Notes* Telephone Encounter - Jen Neely LPN - 01/12/2022 8:37 AM EDT Left message for patient with results and recommendations.Jen Neely LPN * Telephone Encounter - Blanca Dawson APRN.CNP - 01/12/2022 7:24 AM EDT Negative for flu B, covid and positive for flu A. Please notify thank you [facility] Instructions* Patient Instructions* Becca Singer APRN.CNP - 01/11/2022 1:47 PM EDT Albuterol inhaler [...] breath, inability to swallow. documented in this encounterGal[facility]04[facility] History of Present illness Narrative* Becca Singer APRN.CNP - 01/11/2022 1:39 PM EDT Subjective HPI HPI Carolina Hightower is a 46 year old female who presents today for CC of headache, cough, congestion,sore throat, and body aches for 6 days. She has used multiple otc medications without relief. She is an every day smoker. BP 102/62 Pulse 65 Temp 36.6 C (97.8 F) Resp 21 Wt 96.3 kg (212 lb 6.4 oz) LMP 11/20/2020(Approximate) SpO2 99% BMI 38.85 kg/m Social History [...] have confirmed and edited as necessary, the [facility] Review of Systems Constitutional: Negative for chills [...] in 24-48 hours with results, available on [employer] - COVID WITH FLUA+B, ROUTINE Advised needs follow up with PCP Diagnosis and treatment plan were discussed and questions were answered to the patient's satisfaction. Pt acknowledged understanding of concepts and follow up plan. Specific signs and symptoms that would indicate the need for higher level of care were discussed indetail warranting prompt ER evaluation. Becca Singer APRN.COMMUNITY SERVICE OFFICER documented in this encounterGalion Community HospitalDischar summary Author Michi Forbes [facility] July 21, 2023 1:14pm Note Date/Time July 21, 2023 1 :11pm [facility] Medical Records Department [address] [place] [address] Discharge Summary 07/21/23 1304 MR#: [id number] Acct: [id number] Name: CAROLINA HIGHTOWER Rep #:[id number] : 1975 47 From: Michi Forbes DO PCP: Dr. Dacia Acosta MD Status:AD M [facility] Location: [facility] [id number] Providers Date of Admission: 07/20/23 Primary Care Physician: Dr. Dacia Acosta MD Consultations 07/21/23 02:49 Consult: Gastroenterology Routine Consulting Provider: Marcelina Porras Reason for Consult: Ascites; colitis EMERGENT Consult: No MD Notified: Yes Date Notified: 07/20/23 Time Notified: 21:59 Method of Notification: ED Physician Initiated Reason For Visit: ASCITES WITH PORSSIBLE SBP Diagnosis Discharge Diagnosis (1) Ascites: Status: Acute Code(s): R18.8 - Other ascites Qualifiers: Ascites type: due to alcoholic hepatitis Qualified Code(s): K70.11 - Alcoholic hepatitis with ascites Plan: paracentesis ordered and removed 3550cc of fluid. WBCs only 147. Clinically not SBP, DC abx. Patient now agreeable to resuming diuretics to help mitigate ascites. BP is on the lower end, so will use spironolactone 50 and furosemide 20. Titrateupwards as BP and kidney function allow. Wall thickening noted on the CAT scan was nonspecific and clinically not presenting as colitis so therefore discontinuing antibiotics. (2) Subungual hematoma of great toe of left foot: Status: Acute Code(s): S90.212A - Contusion of left great toe with damage to nail, initial encounter Qualifiers: Encounter type: initial encounter Qualified Code(s): S90.212A - Contusion of left great toe with damage to nail, initial encounter Plan: Xray negative. Routine wound care (3) Cirrhosis of liver: Status: Chronic Code(s): K74.60 - Unspecified cirrhosis of liver Qualifiers: Hepatic cirrhosis type: unspecified hepatic cirrhosis Ascites presence:with ascites Qualified Code(s): K74.60 - Unspecified cirrhosis of liver; R18.8 - Other ascites Plan: h/o Hep C follow up with GI. MELD 13, Child-Palma C (4) Hyperbilirubinemia: Status: Acute Code(s): E80.6 - Other disorders of bilirubin metabolism Plan: 2/2 cirrhosis monitor Plan Chronic conditions: * depression: desveenlafaxine * GERD PPI DVT prophylaxis: SCDs Medications at Discharge Home Medications desvenlafaxine 100 mg tablet,extended release 24 hour 100 mg PO DAILY NERVE PAIN02/20/19 Vitamin D3 1,250 mcg OTHER QWEEK SUPPLEMENT 05/20/22 pantoprazole 40 mg tablet,delayed release 40 mg PO BID GERD 05/20/22 topiramate 100 mg tablet 100 mg PO BID PER GASTRO 05/20/22 trazodone 100 mg tablet 100 mg PO QHS SLEEP #1 TAB 05/21/22 aripiprazole 30 mg tablet 30 mg PO DAILY 09/14/22 gabapentin 100 mg capsule 100 mg PO Q12H 07/20/23 furosemide 20 mg tablet 20 mg PO DAILY #30 tabs 07/21/23 spironolactone 50 mg tablet 50 mg PO DAILY #30 tabs 07/21/23 Hospital Course Operations None Procedures Paracentesis Summary of Care Provided Minutes Spent on Discharge: 32 Hospital Course: Patient presented because of bleeding from her toe. Patient had her toe and is bleeding excessively. Patient was unable to care for because her abdomen abdominal girth has gotten bigger. She presented emergency room and that was addressed this x-ray was negative. Bleeding did stop. Patient underwent a CAT scan that showed cirrhosis and splenomegaly as well as ascites. There is noted possible wall thickening on the Sait ascending colon. Patient was denying any abdominal pain. Patient did undergo a paracentesis today that removed 3550 cc of fluid. The white blood cells were 185,000 and not meeting the criteria for spontaneous bacterial peritonitis. The possible wall thickening in ascending colon is rather nonspecific and clinically patient does not have any evidence ofany spontaneous bacterial peritonitis nor colitis. I will discontinue antibiotics. Patient had been on diuretics previously but stopped that due to living in a house with multiple individuals so getting to the restroom in time was difficult so she stopped taking the diuretics. Currently she is in environment now where she can easily get to the restroom without having to wait. She is open to resuming diuretics. Blood pressure systolic is around 110. Will initiate treatment with spironolactone 50 and furosemide 20 mg daily. Thiscan be titrated upwards as blood pressure and kidney function allow. Patient has known cirrhosis due to hepatitis C and has previously had a biopsy to confirm that. That biopsy is not within our computer system. Weight / BMI Weight Weight: 99.798 kg Body Mass Index (BMI) 40.4 ABG / Lab / Microbiology Data 07/21/23 05:11 07/21/23 05:11 Laboratory: Laboratory Results - last 24 hr 07/20/23 18:35: WBC 6.2, RBC 4.19 L, Hgb 9.7 L, Hct 31.6 L, MCV 75.4 L, MCH 23.2L, MCHC 30.7 L, RDW Std Deviation 59.2 H, RDW Coeff of Katalina 21.8 H, Plt Count 59 L, MPV TNP, Immature Gran % (Auto) 0.200, Neut % (Auto) 55.7, Lymph % (Auto) 30.0, Coos % (Auto) 9.1, Eos % (Auto) 4.2, Baso % (Auto) 0.8, Absolute Neuts (auto) 3.5, Absolute Lymphs (auto) 1.87, Nucleated RBC % 0, Platelet Estimate MOD DEC, Plt Morphology Comment LARGE, RBC Morphology N CHROM, Hypochromasia RARE, Anisocytosis 1+, Microcytosis 1+, Ovalocytes RARE, PT 19.6 H, INR 1.7, Sodium 142, Potassium 3.7, Chloride 112 H, Carbon Dioxide 26.0, Anion Gap 4 L, BUN 9, Creatinine 0.94, Estim Creat Clear Calc 57.26, Est GFR (MDRD) Af Amer 82,Est GFR (MDRD) Non-Af 68, BUN/Creatinine Ratio 9.6 L, Glucose 86, Calcium 8.5, Total Bilirubin 1.70 H, Direct Bilirubin 0.87 H, AST 134 H, ALT 76 H, Alkaline Phosphatase 156 H, Total Protein 6.4, Albumin 2.8 L, Globulin 3.6, Lipase 49 07/21/23 05:11: WBC 5.4, RBC 3.88 L, Hgb 8.7 L, Hct 30.0 L, MCV 77.3 L, MCH 22.4L, MCHC 29.0 L D, RDW Std Deviation 60.9 H, RDW Coeff of Katalina 21.8 H, Plt Count 55 L, Immature Gran % (Auto) 0.200, Neut % (Auto) 52.2, Lymph % (Auto) 31.8, Coos % (Auto) 10.6 H, Eos % (Auto) 4.3, Baso % (Auto) 0.9, Absolute Neuts (auto)2.8, Absolute Lymphs (auto) 1.71, Nucleated RBC % 0, Differential Comment SCANNED, Platelet Estimate MKD DEC, Hypochromasia 1+, Anisocytosis 2+, Microcytosis 1+, Macrocytosis 1+, Sodium 140, Potassium 3.3 L, Chloride 112 H, Carbon Dioxide 23.0, Anion Gap 5, BUN 8, Creatinine 0.96, Estim Creat Clear Calc56.07, Est GFR (MDRD) Af Amer 79, Est GFR (MDRD) Non-Af 66, BUN/Creatinine Ratio8.3 L, Glucose 155 H, Calcium 8.3 L, Total Bilirubin 1.20 H, AST 116 H, ALT 69 H, Alkaline Phosphatase 141 H, Total Protein 5.8 L, Albumin 2.4 L, Globulin 3.4, Albumin/Globulin Ratio 0.7 L 07/21/23 : Fluid Source ASCITES FLUID, Fluid Color YELLOW, Fluid Appearance CLEAR, Fluid WBC 0.147, Fluid RBC 100, Fluid Tot Cell Count 0.210 H, Fld Polynuclear WBCs # 0.010, Fld Polynuclear WBCs % 6.8, Fluid Mononuclear WBCs 0.137, Fld Mononuclear WBCs % 93.2, Fluid Neutrophils 6, Fluid Lymphocytes 48, Fluid Monocytes 19, Fluid Macrophages 11, Fld Mesothelial Cells 16, Fl Pathologist Comment May follow, Fluid Comment 2 SEE COMMENT Radiography Diagnostic Testing: Radiology Impression Abdomen/Pelvis CT 07/20/23 19:15 IMPRESSION: Cirrhosis and splenomegaly. Ascites. Bilateral nonobstructing renal calculi. Possible wall thickening of the ascending colon. Electronically Signed: Jamaal Reeves DO at 19:45 EDT Reading Location ID and State: [facility] / [place] Tel [phone], Service support , Foot X-Ray 07/20/23 19:15 IMPRESSION: Negative. Electronically Signed: Jamaal Reeves DO at 19:52 EDT , Paracentesis Ultrasound 07/21/23 02:49 IMPRESSION: Ultrasound guided paracentesis. Electronically Signed: Isidro Burnett MD at 9:00 EDT , D/C Instructions Discharge Diet: 8 Cup Fluid Restriction and 2000 mg Sodium Diet Call your doctor if you observe: - (increased abdominal pain and or swelling. ) Meaningful Use Info Meaningful Use Diagnoses (Choose all that apply): None applicable Discharge Plan Admission Admit Date/Time: 07/20/23 21:47 Primary Reason for Your Visit: ascites. Attending Provider: Michi Forbes Primary Care Provider: Dacia Acosta Consulting Providers: Marcelina Porras; Gurinder Mittal Instructions Patient Instructions: JIM CAO Paracentesis Dc Additional Instructions / Restrictions: You had a paracentesis, drainage of fluid from her abdomen, today and does not appear to be infected. This is due to your known cirrhosis and it is best for you to go back on your diuretics. You will be on spironolactone and furosemide daily. Please continue to take this. Please follow-up with your primary care doctor for follow-up lab work as well as follow-up with Dr. Porras for routine monitoring of your cirrhosis. If your abdominal pain is worse more increase abdominal swelling, notify someone or return to the emergency room. The also presented with bleeding from your toe that is stopped. If he noticed any changeto your toes such as bleeding again or increased redness so forth, contact your physician or return to the emergency room. Discharge Orders/Prescriptions Prescriptions: New spironolactone 50 mg tablet 50 mg PO DAILY Qty: 30 0RF furosemide 20 mg tablet 20 mg PO DAILY Qty: 30 0RF Continued desvenlafaxine 100 mg tablet extended release 24hr 100 mg PO DAILY Vitamin D3 1,250 mcg OTHER QWEEK Rx Instructions: TAKES ON MODAY BY MOUTH pantoprazole 40 mg Tablet,Delayed Release (Dr/Ec) 40 mg PO BID Rx Instructions: BEFORE MEALS topiramate 100 mg tablet 100 mg PO BID Rx Instructions: BEFORE MEALS trazodone 100 mg tablet 100 mg PO QHS Qty: 1 0RF aripiprazole 30 mg tablet 30 mg PO DAILY gabapentin 100 mg capsule 100 mg PO Q12H Patient Comments: Take 1 capsule by mouth twice daily Referrals / Follow Up: Dacia Acosta MD [Primary Care Provider] - Within 2 Weeks FriendMarcelina DO [Med Staff - Active Staff] - 11/16/23 1:30 pm Disposition Disposition (needs filled in before D/C Order can be placed): Home, Self Care Charges/Coding Visit Charges Inpatient E&M: 86737 Disch Hosp >30min 07/21/23 1314 <Electronically signed by Michi Forbes DO> Cosigner Signature (if applicable): CC: Dr. Michi Forbes DO; Dr. Dacia Acosta MD~ Signed [facility] Work Phone: Discharge summary Author Chris Ramos [facility] Note Date/Time February 08, 2025 12:36 pm [facility] Medical Records Department [address] [place] [address] Emergency Department Summary 02/08/25 MR#: [id number] Acct: [id number] Name: CAROLINA HIGHTOWER Rep #:[id number] : 1975 49 From: Chris Ramos MD PCP: Tresa Sandoval NP-C Status:REG E R Location: ED HPI History of Present Illness Chief Complaint: Abd Pain Informant: patient Narrative Narrative: 49-year-old female presenting with chronic abdominal pain and the pain all over her body. She admits this is been going on for years. She states she has been diagnosed with alcoholic cirrhosis as well as hepatitis C, none of which is curable without a liver transplant that she is not a candidate for. She has been seen by GI here, as well as her PCP at the [facility], she has had a referral put in for palliative care but it has not happened yet, this was maybe a week ago, she is in a lot of pain, she was here 4 days ago for the same pain, and when she asked for something for pain over the phone from the office today, they referred her back here to the ER according to her. [facility] Medical History Decompensated cirrhosis Abdominal ascites Redness of skin Blackout Urolithiasis Hydronephrosis with renal calculous obstruction Hydroureteronephrosis Bipolar disorder Anxiety Depression Ascites of liver Complete edentulism, class III Alcohol abuse Chronic pain GERD (gastroesophageal reflux disease) Restless legs Iron deficiency anemia Hyperbilirubinemia Substance abuse Marijuana use MRSA infection Low iron Anemia Hepatitis Migraine headache Seizures History of diverticulitis COPD (chronic obstructive pulmonary disease) Smoker Obesity Thrombocytopenia Polysubstance abuse Cirrhosis of liver Anxiety and depression Hepatitis C, chronic Home Medications ?Medication ?Instructions ?Recorded ?Last Taken ?Type gabapentin 100 mg capsule 100 mg PO Q12H nerve pain 06/12/24 History melatonin 5 mg tablet 5 mg PO QHS PRN sleep 06/12/24 History desvenlafaxine succinate 50 mg 50 mg PO DAILY #30 tabs 06/19/24 Unknown Rx tablet,extended release 24 hr ferrous sulfate 325 mg (65 mg 325 mg PO DAILY suppleme nt #30 tabs 06/19/24 Unknown Rx iron) tablet (FeroSul) midodrine 10 mg tablet 10 mg PO TID #90 tabs Unknown Rx spironolactone 50 mg tablet 50 mg PO BID #60 tabs 05/28 01/17 Unknown Rx topiramate 50 mg tablet 100 mg (2 x 50 mg) PO DAILY #30 06/19/24 06/12/24 Rx tabs buspirone 10 mg tablet 10 mg PO BID ANXIETY #60 tab s 01/23/25 Unknown Rx rifaximin 550 mg tablet (Xifaxan) 550 mg PO BID 30 day s #60 tabs 01/23/25 Unknown Rx trazodone 50 mg tablet 50 mg PO QHS PRN 01/23/25 Un known History amoxicillin 875 mg-potassium 875 mg PO Q12H #20 TABLET S 02/04/25 Unknown Rx clavulanate 125 mg tablet furosemide 40 mg tablet (Lasix) 40 mg PO DAILY DIURETI C #30 tabs 02/05/25 Unknown Rx lactulose 10 gram/15 mL oral 10 g (15 mL) PO TID PRN s tomach 02/05/25 Unknown Rx solution upset #3,000 mL ondansetron 8 mg disintegrating 8 mg PO Q8H PRN nausea and 02/08/25 Unknown Rx tablet vomiting #20 tabs oxycodone 5 mg tablet 5 mg PO Q6H PRN pain 4 days #15 02/08/25 Unknown Rx tabs Allergy/AdvReac Type Severity Reaction Status Date / Time bupropion HCl (From Allergy SEIZURES Verified 02/08/25 11:17 Wellbutrin) codeine Allergy Rash Verified 02/08/25 11:17 Family History Mother Diabetes Father Cancer HX Throat CA. Surgical History History of abdominal paracentesis H/O tubal ligation History of liver biopsy Social History adopted: No household members: family housing: other number of children: 3 current occupational status: unemployed pets and animals: Yes history of recent travel: No sexually active: Yes Smoking Status: Current every day smoker tobacco type: cigarettes second hand exposure: Yes alcohol intake: current alcohol intake frequency: a few times a month substance use type: former substance user Date of last use: heroin, methamphetamine, marijuana and other seatbelt use: always do you feel safe at home: Yes ROS ROS ED Constitutional Constitutional ED: Denies chills or fever(s) Eyes Eyes: Denies change in vision or diplopia ENT ENT ED: Denies rhinorrhea or sore throat Cardiovascular Cardiovascular: Denies chest pain or palpitations Respiratory/Chest Respiratory/Chest: Denies cough or dyspnea Gastrointestinal Gastrointestinal: Reports abdominal pain and nausea; Denies diarrhea or vomiting Genitourinary Genitourinary ED: Denies dysuria or hematuria Musculoskeletal Musculoskeletal: Reports back pain and myalgias; Denies neck pain Integumentary Denies abscess or rash Neurologic Neurologic: Denies headache(s), paresthesias or weakness Psychiatric Psychiatric: Denies suicidal thoughts EXAM Physical Exam Const Vital Signs: 02/08/25 11:16 Temperature 98 F Temperature Source Temporal Pulse Rate 62 Respiratory Rate 14 Blood Pressure 108/74 Blood Pressure Mean 85 Pulse Ox 98 Oxygen Delivery Method Room Air Positive well nourished and well developed General Appearance ED: well developed and NAD HEENT Reports moist mucous membranes normocephalic and atraumatic Eyes PERRL and EOMs intact bilaterally Neck full ROM and supple Resp normal respiratory effort and clear to auscultation bilaterally Cardio regular rate, regular rhythm and no murmurs GI GI Narrative: Abdominal distention but does not feel tight. Abdomen is soft. Positive fluid wave. Mostly tender in the left upper quadrant. No right upper quadrant tenderness. Auscultation: normoactive bowel sounds Palpation: soft Back/Spine no CVA tenderness General Back: other FROM Extremity normal to inspection General Extremety ED: Negative for edema, pulses abnormal or tenderness General Extremity: Negative for edema or pulses abnormal Neuro oriented x3, CN's II-XII intact bilaterally and no sensory deficits noted Sensorium / Orientation: awake and alert Motor Exam: strength 5/5 throughout Skin no rashes or lesions noted and no wounds MDM MDM MDM Narrative Medical decision making narrative: I spoke with case management. They were able to discuss with case management ather primary care office, and we were able to obtain a lot more information. They also were concerned about the patient's pain, but apparently her primary care provider was uncomfortable prescribing her pain medication because of her liver. Patient states she has been on gabapentin and taking no more than 2 Tylenol tablets per day, because of her liver. Given all of that, case management referred her to Dr. Garay with pain management but she has not had that appointment yet. She had been at [facility] and was transferred to [facility] because they thought that she only had a couple weeks to live but that ended up not being the case, and for this reason apparently she isnot a candidate for hospice. Hence, being referred for palliative care. I reviewed the ER visit from 4 days ago. There was no talk about anything with regards to palliative care in the dictation/documentation. I do not feel the patient needs to have any of those tests repeated. As a matter fact she had repeat blood work yesterday and I reviewed that as well, apparently as an outpatient. Her CT from 4 days ago did not show anything acute. She has a ridehome I gave her an injection of morphine and some prophylactic Zofran. She is eating and drinking, her appetite has been suffering because of the pain and nausea. I think very reasonable to prescribe this patient Zofran and oxycodone,and if she runs out I advised her to call her primary care to see if they would be willing to do this until she sees pain management and/or palliative. The patient appears hydrated. Her vital signs are normal. She is alert and oriented, and consistently taking her lactulose which is keeping her bowels moving. She also is already set up for weekly paracentesis which she has been getting and does not appear to need one right now, she has no dyspnea with exertion or major limitations from abdominal distention acutely at this time. I also did check an [facility] report, she has rare prescriptions for antibiotics and none of them have been recent. 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 Discharge Plan Triage Chief Complaint: Abd Pain ED Provider: Chris Rmaos Dx/Rx/DC Orders Clinical Impression: Cirrhosis of liver, Chronic abdominal pain Instructions: ED Chronic Pain Prescriptions: New ondansetron 8 mg tablet,disintegrating 8 mg PO Q8H PRN (Reason: nausea and vomiting) Qty: 20 0RF oxycodone 5 mg tablet 5 mg PO Q6H PRN (Reason: pain) 4 Days Qty: 15 0RF No Action trazodone 50 mg tablet 50 mg PO QHS PRN Xifaxan 550 mg tablet 550 mg PO BID 30 Days Qty: 60 6RF buspirone 10 mg tablet 10 mg PO BID Qty: 60 0RF gabapentin 100 mg capsule 100 mg PO Q12H melatonin 5 mg tablet 5 mg PO QHS PRN (Reason: sleep) midodrine 10 mg tablet 10 mg PO TID Qty: 90 0RF Rx Instructions: do not give last dose of day after 6PM or within 4 hrs of bedtime ferrous sulfate [FeroSul] 325 mg (65 mg iron) tablet 325 mg PO DAILY Qty: 30 0RF spironolactone 50 mg Tablet 50 mg PO BID Qty: 60 1RF topiramate 50 mg tablet 100 mg PO DAILY Qty: 30 0RF desvenlafaxine succinate 50 mg tablet extended release 24 hr 50 mg PO DAILY Qty: 30 0RF amoxicillin-pot clavulanate 875-125 mg tablet 875 mg PO Q12H Qty: 20 0RF lactulose 10 gram/15 mL solution 10 g PO TID PRN (Reason: stomach upset) Qty: 3000 0RF furosemide [Lasix] 40 mg tablet 40 mg PO DAILY Qty: 30 0RF Rx Instructions: start on 04/14/24 Primary Care Provider: Tresa Sandoval Referrals: Tresa Sandoval, CONCHIS [Primary Care Provider] - (If you have further issues before seeing palliative care or pain management) Print Language: Ghanaian Disposition Disposition: Home, Self Care What to do if you have Problems For any increased pain, shortness of breath, bleeding, nausea or vomiting, chestpain, or any unexpected problems, contact your Primary Care Provider. Call [facility] ([phone]) or report to the closest Emergency Room. Call 911 if necessary. 02/08/25 1236 <Electronically signed by Chris Ramos MD> Cosigner Signature (if applicable): CC: CONCHIS Sandoval ~ Signed [facility] Work Phone: Evaluation + Plan note No data available for this section [facility] Evaluation note* Diagnosis Viral illness- Primary Unspecified viral infection, in conditions classified elsewhere and of unspecified site [facility]* Diagnosis Bacterial skin infection- Primary Unspecified local infection of skin and subcutaneous tissue Acne vulgaris Other acne Chronic midline low back pain with bilateral sciatica [facility]* Diagnosis Encounter for screening mammogram for breast cancer [facility]* Diagnosis Wound check, abscess- Primary Encounter for other specified aftercare [facility]* Diagnosis Dermatitis- Primary Contact dermatitis and other eczema, due to unspecified cause documented [facility] this encounter [facility] noteNo assessment information availableWMetroHealth [facility] Work Phone: Evaluation note* Diagnosis Onset Date Resolution Status Acute hepatic encephalopathy acute Hyperammonemia acute [facility] Work Phone: Evaluation note* Diagnosis Chronic midline low back pain with bilateral sciatica documented in this encounter [facility] note* Diagnosis Onset Date Resolution Status Acute hepatic encephalopathy resolved Hyperammonemia resolved Cirrhosis of liver chronic Hepatitis C, chronic chronic [facility] Work Phone: evaluation note* Diagnosis Cellulitis of chin- Primary Cellulitis and abscess of face Picking own skin Other disorder of impulse control URI, acute Acute upper respiratory infections of unspecified site documented in this encounter [facility] note* Diagnosis Skin infection- Primary Unspecified local infection of skin and subcutaneous tissue documented in this encounter [facility] note* Diagnosis Cellulitis of chin Cellulitis and abscess of face documented in this encounter [facility] note* Diagnosis Low back pain, unspecified back pain laterality, unspecified chronicity, unspecified whether sciatica present documented in this encounter [facility] note* Diagnosis Onset Date Resolution Status Ascites acute Hyperbilirubinemia acute Skin ulcer of left great toe acute Subungual hematoma of great toe of left foot acute Cirrhosis of liver chronic [facility] Work Phone: Evaluation note* Diagnosis Encounter for screening mammogram for breast cancer documented in this encounter [facility] note* Diagnosis Onset Date Resolution Status Cirrhosis of liver acute Skin ulcer of left great toe acute Ascites chronic Subungual hematoma of great toe of left foot resolved Cirrhosis of liver acute Iron deficiency anemia acute Skin ulcer of left great toe acute Hepatitis C, chronic chronic Subungual hematoma of great toe of left foot resolved Ascites chronic [facility] Work Phone: Evaluation note* Diagnosis Small bowel obstruction (HCC)- Primary Unspecified intestinal obstruction Small bowel obstruction (HCC) Unspecified intestinal obstruction Polysubstance use disorder documented in this encounter [facility] note* Diagnosis Onset Date Resolution Status Cirrhosis of liver acute Skin ulcer of left great toe acute Ascites chronic Subungual hematoma of great toe of left foot resolved Cirrhosis of liver acute Iron deficiency anemia acute Skin ulcer of left great toe acute Hepatitis C, chronic chronic Subungual hematoma of great toe of left foot resolved Ascites chronic Cirrhosis of liver acute Ascites chronic [facility] Work Phone: Evaluation note* Diagnosis Open wound of skin- Primary [facility] Diagnosis Onset Date Resolution Status Cirrhosis of liver acute Skin ulcer of left great toe acute Ascites resolved Subungual hematoma of great toe of left foot resolved Cirrhosis of liver acute Iron deficiency anemia acute Skin ulcer of left great toe acute Hepatitis C, chronic chronic Subungual hematoma of great toe of left foot resolved Ascites resolved Cirrhosis of liver acute Ascites resolved [facility] Work Phone: Evaluation note* Diagnosis Cirrhosis of liver with ascites, [...] unspecified whether recurrent [facility] Diagnosis Onset Date Resolution Status Ascites resolved Cirrhosis of liver acute Ascites resolved Cirrhosis of liver acute [facility] Work Phone: Evaluation note* Diagnosis Onset Date Resolution Status Ascites resolved Cirrhosis of liver acute Ascites resolved Chronic pain of toe of right foot acute Cirrhosis of liver acute Iron deficiency anemia acute Nail dystrophy acute Tinea unguium acute Hepatitis C, chronic chronic Ascites resolved [facility] Work Phone: Evaluation note* Diagnosis Chronic hepatitis C without hepatic coma (HCC)- Primary Chronic hepatitis C without mention of hepatic coma Cirrhosis of liver with ascites, unspecified hepatic cirrhosis type (HCC) (HCC) Other ascites Nausea and vomiting, unspecified vomiting type [facility] Diagnosis Onset Date Resolution Status Ascites resolved Chronic pain of toe of right foot acute Iron deficiency anemia acute Nail dystrophy acute Tinea unguium acute Hepatitis C, chronic chronic Ascites resolved [facility] Work Phone: Evaluation note* Diagnosis Low back pain, unspecified back pain laterality, unspecified chronicity, unspecified whether sciatica present documented in this encounter [facility] note* Diagnosis Skin sore- Primary Unspecified disorder of skin and subcutaneous tissue Gross hematuria Acute cystitis with hematuria Acute cystitis Anxiety with depression documented in this encounter [facility] note* Diagnosis Skin ulcer, limited to breakdown of skin (HCC)- Primary Excoriation (skin-picking) disorder MRSA (methicillin resistant Staphylococcus aureus) Methicillin resistant Staphylococcus aureus in conditions classified elsewhere and of unspecified site Local infection of skin and subcutaneous tissue Unspecified local infection of skin and subcutaneous tissue documented in this encounter [facility] note* Diagnosis Encounter for screening mammogram for breast cancer [facility]* Diagnosis Kidney stone- Primary Calculus of kidney Acute cystitis without hematuria Acute cystitis Cirrhosis of liver with ascites, unspecified hepatic cirrhosis type (HCC) (HCC) Thrombocytopenia (HCC) Thrombocytopenia, unspecified Seasonal allergic rhinitis due to pollen [facility] Diagnosis Low back pain, unspecified back pain laterality, unspecified chronicity, unspecified whether sciatica present [facility] Diagnosis Urinary frequency- Primary Acute cystitis with hematuria Acute cystitis Abrasion of foot with infection, unspecified laterality, initial encounter Skin lesion Unspecified disorder of skin and subcutaneous tissue documented in this encounter [facility] note* Diagnosis Diarrhea, unspecified type- Primary Kidney stone Calculus of kidney Acute cystitis without hematuria Acute cystitis Cirrhosis of liver with ascites, unspecified hepatic cirrhosis type (HCC) (HCC) Possible exposure to STD Other specified personal history presenting hazards to health History of abnormal cervical Pap smear Personal history of other genital system and obstetric disorders [facility]* Diagnosis Diarrhea, unspecified type documented in this encounter [facility] note* Diagnosis Hypokalemia- Primary Hypopotassemia [facility]* Diagnosis Alcoholic cirrhosis of liver with ascites (CMS/HCC)- Primary Chronic hepatitis C with cirrhosis (CMS/HCC) Chronic hepatitis C without mention of hepatic coma documented in this encounter [facility] note* Diagnosis Cirrhosis of liver (CMS/HCC)- Primary Cirrhosis of liver without mention of alcohol documented in this encounter [facility] note* Diagnosis Alcoholic cirrhosis of liver with ascites (CMS/HCC)- Primary Ascites Other ascites Amphetamine-type substance use disorder, severe (CMS/HCC) Chronic hepatitis C with cirrhosis (CMS/HCC) Chronic hepatitis C without mention of hepatic coma documented in this encounter [facility] note* Diagnosis Ascites- Primary Other ascites documented in this encounter [facility] note* Diagnosis Cirrhosis of liver with ascites (CMS/HCC)- Primary Alcoholic cirrhosis of liver with ascites (CMS/HCC)- Primary Ascites- Primary Other ascites [facility] Diagnosis Cirrhosis of liver with ascites (CMS/HCC)- Primary Ascites- Primary Other ascites Ascites- Primary Other ascites documented in this encounter [facility] note* Diagnosis Cirrhosis of liver with ascites (CMS/HCC)- Primary Ascites- Primary Other ascites documented in this encounter [facility] note* Diagnosis Cirrhosis of liver with ascites (CMS/HCC)- Primary Ascites- Primary Other ascites Ascites Other ascites Ascites- Primary Other ascites Ascites- Primary Other ascites documented in this encounter [facility] note* Diagnosis Cirrhosis of liver with ascites (CMS/HCC)- Primary Ascites- Primary Other ascites Ascites- Primary Other ascites Ascites Other ascites documented in this encounter [facility] note* Diagnosis Cirrhosis of liver with ascites (CMS/HCC)- Primary Ascites- Primary Other ascites documented in this encounter [facility] note* Diagnosis Acute metabolic encephalopathy- Primary Hepatic encephalopathy (CMS/HCC) Hepatic encephalopathy Ascites Other ascites Acute metabolic encephalopathy Abnormal finding on GI tract imaging Chronic hepatitis C with cirrhosis (CMS/HCC) Chronic hepatitis C without mention of hepatic coma HE (hepatic encephalopathy) (CMS/HCC) Hepatic encephalopathy Chronic bilateral low back pain without sciatica Alcoholic cirrhosis of liver with ascites (CMS/HCC) Thrombocytopenia (CMS/HCC) Thrombocytopenia, unspecified Muscle cramps Cirrhosis of liver with ascites (CMS/HCC) Acute hepatic encephalopathy (CMS/HCC) Hyperammonemia (CMS/HCC) Disorders of urea cycle metabolism Hypocalcemia Chronic hepatitis C with cirrhosis (CMS/HCC) Chronic hepatitis C without mention of hepatic coma Ascites- Primary Other ascites Ascites- Primary Other ascites Ascites Other ascites [facility] Diagnosis Acute metabolic encephalopathy- Primary Hepatic encephalopathy (CMS/HCC) Hepatic encephalopathy Ascites Other ascites Acute metabolic encephalopathy Abnormal finding on GI tract imaging Chronic hepatitis C with cirrhosis (CMS/HCC) Chronic hepatitis C without mention of hepatic coma HE (hepatic encephalopathy) (CMS/HCC) Hepatic encephalopathy Chronic bilateral low back pain without sciatica Alcoholic cirrhosis of liver with ascites (CMS/HCC) Thrombocytopenia (CMS/HCC) Thrombocytopenia, unspecified Muscle cramps Cirrhosis of liver with ascites (CMS/HCC) Acute hepatic encephalopathy (CMS/HCC) Hyperammonemia (CMS/HCC) Disorders of urea cycle metabolism Hypocalcemia Chronic hepatitis C with cirrhosis (CMS/HCC) Chronic hepatitis C without mention of hepatic coma Ascites- Primary Other ascites Ascites- Primary Other ascites Ascites- Primary Other ascites [facility] Acute metabolic encephalopathy- Primary Hepatic encephalopathy (CMS/HCC) Hepatic encephalopathy Ascites Other ascites Acute metabolic encephalopathy Abnormal finding on GI tract imaging Chronic hepatitis C with cirrhosis (CMS/HCC) Chronic hepatitis C without mention of hepatic coma HE (hepatic encephalopathy) (CMS/HCC) Hepatic encephalopathy Chronic bilateral low back pain without sciatica Alcoholic cirrhosis of liver with ascites (CMS/HCC) Thrombocytopenia (CMS/HCC) Thrombocytopenia, unspecified Muscle cramps Cirrhosis of liver with ascites (CMS/HCC) Acute hepatic encephalopathy (CMS/HCC) Hyperammonemia (CMS/HCC) Disorders of urea cycle metabolism Hypocalcemia Chronic hepatitis C with cirrhosis (CMS/HCC) Chronic hepatitis C without mention of hepatic coma Ascites- Primary Other ascites Ascites- Primary Other ascites Ascites Other ascites [facility] Acute metabolic encephalopathy- Primary Hepatic encephalopathy (CMS/HCC) Hepatic encephalopathy Ascites Other ascites Acute metabolic encephalopathy Abnormal finding on GI tract imaging Chronic hepatitis C with cirrhosis (CMS/HCC) Chronic hepatitis C without mention of hepatic coma HE (hepatic encephalopathy) (CMS/HCC) Hepatic encephalopathy Chronic bilateral low back pain without sciatica Alcoholic cirrhosis of liver with ascites (CMS/HCC) Thrombocytopenia (CMS/HCC) Thrombocytopenia, unspecified Muscle cramps Cirrhosis of liver with ascites (CMS/HCC) Acute hepatic encephalopathy (CMS/HCC) Hyperammonemia (CMS/HCC) Disorders of urea cycle metabolism Hypocalcemia Chronic hepatitis C with cirrhosis (CMS/HCC) Chronic hepatitis C without mention of hepatic coma Ascites- Primary Other ascites Chronic liver disease and cirrhosis (CMS/HCC)- Primary Unspecified chronic liver disease without mention of alcohol Thrombocytopenia (CMS/HCC) Thrombocytopenia, unspecified [facility] Acute metabolic encephalopathy- Primary Hepatic encephalopathy (CMS/HCC) Hepatic encephalopathy Ascites Other ascites Acute metabolic encephalopathy Abnormal finding on GI tract imaging Chronic hepatitis C with cirrhosis (CMS/HCC) Chronic hepatitis C without mention of hepatic coma HE (hepatic encephalopathy) (CMS/HCC) Hepatic encephalopathy Chronic bilateral low back pain without sciatica Alcoholic cirrhosis of liver with ascites (CMS/HCC) Thrombocytopenia (CMS/HCC) Thrombocytopenia, unspecified Muscle cramps Cirrhosis of liver with ascites (CMS/HCC) Acute hepatic encephalopathy (CMS/HCC) Hyperammonemia (CMS/HCC) Disorders of urea cycle metabolism Hypocalcemia Chronic hepatitis C with cirrhosis (CMS/HCC) Chronic hepatitis C without mention of hepatic coma Ascites- Primary Other ascites Ascites Other ascites Ascites- Primary Other ascites [facility] Diagnosis Acute metabolic encephalopathy- Primary Hepatic encephalopathy (CMS/HCC) Hepatic encephalopathy Ascites Other ascites Acute metabolic encephalopathy Abnormal finding on GI tract imaging Chronic hepatitis C with cirrhosis (CMS/HCC) Chronic hepatitis C without mention of hepatic coma HE (hepatic encephalopathy) (CMS/HCC) Hepatic encephalopathy Chronic bilateral low back pain without sciatica Alcoholic cirrhosis of liver with ascites (CMS/HCC) Thrombocytopenia (CMS/HCC) Thrombocytopenia, unspecified Muscle cramps Cirrhosis of liver with ascites (CMS/HCC) Acute hepatic encephalopathy (CMS/HCC) Hyperammonemia (CMS/HCC) Disorders of urea cycle metabolism Hypocalcemia Chronic hepatitis C with cirrhosis (CMS/HCC) Chronic hepatitis C without mention of hepatic coma Ascites- Primary Other ascites Cirrhosis of liver (CMS/HCC)- Primary Cirrhosis of liver without mention of alcohol [facility] Diagnosis Acute metabolic encephalopathy- Primary Hepatic encephalopathy (CMS/HCC) Hepatic encephalopathy Ascites Other ascites Acute metabolic encephalopathy Abnormal finding on GI tract imaging Chronic hepatitis C with cirrhosis (CMS/HCC) Chronic hepatitis C without mention of hepatic coma HE (hepatic encephalopathy) (CMS/HCC) Hepatic encephalopathy Chronic bilateral low back pain without sciatica Alcoholic cirrhosis of liver with ascites (CMS/HCC) Thrombocytopenia (CMS/HCC) Thrombocytopenia, unspecified Muscle cramps Cirrhosis of liver with ascites (CMS/HCC) Acute hepatic encephalopathy (CMS/HCC) Hyperammonemia (CMS/HCC) Disorders of urea cycle metabolism Hypocalcemia Chronic hepatitis C with cirrhosis (CMS/HCC) Chronic hepatitis C without mention of hepatic coma Ascites- Primary Other ascites [facility] Diagnosis Acute metabolic encephalopathy- Primary Hepatic encephalopathy (CMS/HCC) Hepatic encephalopathy Ascites Other ascites Acute metabolic encephalopathy Abnormal finding on GI tract imaging Chronic hepatitis C with cirrhosis (CMS/HCC) Chronic hepatitis C without mention of hepatic coma HE (hepatic encephalopathy) (CMS/HCC) Hepatic encephalopathy Chronic bilateral low back pain without sciatica Alcoholic cirrhosis of liver with ascites (CMS/HCC) Thrombocytopenia (CMS/HCC) Thrombocytopenia, unspecified Muscle cramps Cirrhosis of liver with ascites (CMS/HCC) Acute hepatic encephalopathy (CMS/HCC) Hyperammonemia (CMS/HCC) Disorders of urea cycle metabolism Hypocalcemia Chronic hepatitis C with cirrhosis (CMS/HCC) Chronic hepatitis C without mention of hepatic coma Ascites- Primary Other ascites [facility] Diagnosis Acute metabolic encephalopathy- Primary Hepatic encephalopathy Hepatic encephalopathy Ascites Other ascites Acute metabolic encephalopathy Abnormal finding on GI tract imaging Chronic hepatitis C with cirrhosis Chronic hepatitis C without mention of hepatic coma HE (hepatic encephalopathy) Hepatic encephalopathy Chronic bilateral low back pain without sciatica Alcoholic cirrhosis of liver with ascites Thrombocytopenia Thrombocytopenia, unspecified Muscle cramps Cirrhosis of liver with ascites Acute hepatic encephalopathy Hyperammonemia (HHS/HCC) Disorders of urea cycle metabolism Hypocalcemia Chronic hepatitis C with cirrhosis Chronic hepatitis C without mention of hepatic coma Viral syndrome- Primary Unspecified viral infection, in conditions classified elsewhere and of unspecified site [facility] Diagnosis Acute metabolic encephalopathy- Primary Hepatic encephalopathy Hepatic encephalopathy Ascites Other ascites Acute metabolic encephalopathy Abnormal finding on GI tract imaging Chronic hepatitis C with cirrhosis Chronic hepatitis C without mention of hepatic coma HE (hepatic encephalopathy) Hepatic encephalopathy Chronic bilateral low back pain without sciatica Alcoholic cirrhosis of liver with ascites Thrombocytopenia Thrombocytopenia, unspecified Muscle cramps Cirrhosis of liver with ascites Acute hepatic encephalopathy Hyperammonemia (HHS/HCC) Disorders of urea cycle metabolism Hypocalcemia Chronic hepatitis C with cirrhosis Chronic hepatitis C without mention of hepatic coma Ascites- Primary Other ascites [facility] Diagnosis Acute metabolic encephalopathy- Primary Hepatic encephalopathy Hepatic encephalopathy Ascites Other ascites Acute metabolic encephalopathy Abnormal finding on GI tract imaging Chronic hepatitis C with cirrhosis Chronic hepatitis C without mention of hepatic coma HE (hepatic encephalopathy) Hepatic encephalopathy Chronic bilateral low back pain without sciatica Alcoholic cirrhosis of liver with ascites Thrombocytopenia Thrombocytopenia, unspecified Muscle cramps Cirrhosis of liver with ascites Acute hepatic encephalopathy Hyperammonemia (HHS/HCC) Disorders of urea cycle metabolism Hypocalcemia Chronic hepatitis C with cirrhosis Chronic hepatitis C without mention of hepatic coma Ascites- Primary Other ascites Ascites Other ascites [facility] Diagnosis Acute metabolic encephalopathy- Primary Hepatic encephalopathy Hepatic encephalopathy Ascites Other ascites Acute metabolic encephalopathy Abnormal finding on GI tract imaging Chronic hepatitis C with cirrhosis Chronic hepatitis C without mention of hepatic coma HE (hepatic encephalopathy) Hepatic encephalopathy Chronic bilateral low back pain without sciatica Alcoholic cirrhosis of liver with ascites Thrombocytopenia Thrombocytopenia, unspecified Muscle cramps Acute hepatic encephalopathy Hyperammonemia (HHS/HCC) Disorders of urea cycle metabolism Hypocalcemia Chronic hepatitis C with cirrhosis Chronic hepatitis C without mention of hepatic coma Cirrhosis of liver with ascites- Primary Abdominal pain Abdominal pain, unspecified site Ascites Other ascites Lower back pain Lumbago Cirrhosis of liver with ascites Tobacco use disorder Abdominal pain Abdominal pain, unspecified site [facility] Diagnosis Acute metabolic encephalopathy- Primary Hepatic encephalopathy Hepatic encephalopathy Ascites Other ascites Acute metabolic encephalopathy Abnormal finding on GI tract imaging Chronic hepatitis C with cirrhosis Chronic hepatitis C without mention of hepatic coma HE (hepatic encephalopathy) Hepatic encephalopathy Chronic bilateral low back pain without sciatica Alcoholic cirrhosis of liver with ascites Thrombocytopenia Thrombocytopenia, unspecified Muscle cramps Acute hepatic encephalopathy Hyperammonemia (HHS/HCC) Disorders of urea cycle metabolism Hypocalcemia Chronic hepatitis C with cirrhosis Chronic hepatitis C without mention of hepatic coma Visit for screening mammogram [facility] Author Sowmya Mirza [facility] December 04, 2023 9:28pm Note Date/Time December 04, 2023 8:3 7pm [facility] Medical Records Department [address] [place] [id number] H&P Exam - Hospitalist 12/04/232032 MR#: [id number] Acct: [id number] Name: CAROLINA HIGHTOWER Rep #:[id number] 13 : 1975 48 From: Sowmya Mirza MD PCP: Dr. Dacia Acosta MD Status:AD M IN Location: [place] [id number] HPI - General General Date of Admission: 12/04/23 Date of Service: 12/04/23 Chief Complaint: Abdominal pain, dysuria. HPI Narrative The patient is a 48 y/o F w/ PMHx: Obesity, Chronic anemia/iron deficiency anemia, Anxiety and Depression, Chronic hepatitis C/cirrhosis with chronic LFT/Bilirubin elevations w/ Hx polysubstance abuse (heroin, cannabis, methamphetamine), Tobacco use, Chronic thrombocytopenia who presents to the [facility] ED on 12/04/23 with history of generalized abdominal discomfort over the last 48 hours with dysuria over the last several days recently placed on Macrobid 1 weekprior by her PCP however she has not been taking it with recent paracentesis within the last couple weeks and patient also reports she is unsure if she is been taking her lactulose correctly with decreased appetite with no recent fevers or chills nor any emesis but given ongoing abdominal discomfort and dysuria prompted ED evaluation. In the ED with nursing staff patient did reportthat she cannot stand living like this and when discussed further notes she means being in pain. She stated that she was unhappy with how she feels on a constant basis but when discussed suicidal ideations or plans she denies franklyand has no intent or thoughts. In the ED despite her complaints about generalized discomfort she is asking for food and drink. She does state that she still occasionally socially drinks. Workup in the ED included T96.4, heart rate 81, BP 127/83, respiratory rate 18, 97% on room air, CBC with WBC 6.1, human 8.9, MCV 82.1, platelet 87 without marked shift, coags with INR 1.7, PT 20, CMP with chloride 110, glucose 114, calcium 8.4, total bilirubin 2.10, AST/LT 58/47, alk phos 143, ammonia 45, lipase 30, CT abdomen and pelvis with diffuse gallbladder distention suggesting ectopic gallbladder, diffuse abdominalascites, splenomegaly, hepatic cirrhosis, portal hypertension, nonobstructive right renal stones measuring up to 10 mm, urinalysis with cloudy appearing urine, protein 30, ketone 15, occult blood 50, positive nitrate, urine bilirubin3, urine urobilinogen 8, urine leukocyte Estrace 500 with 25-50 urine WBCs however there is only rare bacteria noted, urine culture pending per ED. In theED patient ministered Zofran 4 mg IV x 2, morphine 2 mg IV x 1 and morphine 4 mgIV x 1 as well as IV Rocephin 1 g. PFSH Medical History Alcohol abuse Anemia Anxiety and depression Chronic pain Cirrhosis of liver COPD (chronic obstructive pulmonary disease) Gastric reflux GERD (gastroesophageal reflux disease) Hepatitis History of diverticulitis History of renal disease Hyperbilirubinemia Kidney stones Low iron Marijuana use Migraine headache MRSA infection Obesity Open wound Polysubstance abuse Restless legs Seizures Sleep apnea Smoker Substance abuse Thrombocytopenia Tobacco use Home Medications Vitamin D3 1,250 mcg OTHER QWEEK SUPPLEMENT 05/20/22 [History Last Taken Unknown] gabapentin 100 mg capsule 100 mg PO Q12H 07/20/23 [History Last Taken Unknown] furosemide 20 mg tablet (Lasix) 20 mg PO DAILY #90 tabs 10/07/23 [Rx Last Taken 11/09/23] lactulose 20 gram/30 mL oral solution 20 g (30 mL) PO TID 30 days #2,880 mL 10/07/23 [Rx Last Taken Unknown] spironolactone 50 mg tablet 75 mg (1.5 x 50 mg) PO DAILY #45 tabs 11/05/23 [Rx Last Taken Unknown] albuterol sulfate 90 mcg/actuation aerosol inhaler (Ventolin HFA) 2 puff inhalation Q4H PRN PRN shortness of breath or wheezing 12/04/23 [History Last Taken Unknown] ascorbate calcium (vitamin C) 500 mg tablet 500 mg PO DAILY 12/04/23 [History Last Taken Unknown] ferrous sulfate 325 mg (65 mg iron) tablet (FeroSul) 325 mg PO DAILY 12/04/23 [History Last Taken Unknown] Allergy/AdvReac Type Severity Reaction Status Date / Time bupropion HCl Allergy SEIZURES Verified 12/04/23 16:48 [From Wellbutrin] codeine Allergy Rash Verified 12/04/23 16:48 Family History Mother Diabetes Father Cancer HX Throat CA. Surgical History H/O tubal ligation History of liver biopsy Social History (Updated 12/04/23 @ 21:[address] Sowmya Mirza MD) adopted: No household members: family housing: other number of children: 3 current occupational status: unemployed pets and animals: Yes history of recent travel: No sexually active: Yes Smoking Status: Current every day smoker tobacco type: cigarettes Smoking packsper day: 1 Smoking cigarettes per day: 20.0 second hand exposure: Yes alcohol intake: current alcohol intake frequency: a few times a month substance use type: former substance user Date of last use: heroin, marijuana, heroin and methamphetamine seatbelt use: always do you feel safe at home: Yes ROS ROS Narrative Admission Review of Systems: CONSTITUTIONAL: No weight loss, fever, chills,+ weakness or fatigue. HEENT: Eyes: No visual loss, blurred vision, double vision or yellow sclerae. Ears, Nose, Throat: No hearing loss, sneezing, congestion, runny nose or sore throat. SKIN: No rash or itching, lesions, wounds. CARDIOVASCULAR: No chest pain, chest pressure or chest discomfort, palpitations,edema, orthopnea, syncopal events. RESPIRATORY: No shortness of breath, cough or sputum, wheezing, hemoptysis. GASTROINTESTINAL: + anorexia, nausea, generalized abdominal discomfort, distention with recurrent ascites. No vomiting, diarrhea, melena, BRBPR. GENITOURINARY: + dysuria, frequency. No urgency or retention. NEUROLOGICAL: + Hx seizure with wellbutrin. No headache, dizziness, syncope, paralysis, ataxia, numbness or tingling in the extremities, focal weakness, change in bowel or bladder control, seizure. MUSCULOSKELETAL: + muscle, back pain, joint pain or stiffness. HEMATOLOGIC: + anemia. Easy bleeding and bruising. LYMPHATICS: No enlarged nodes. No history of splenectomy. PSYCHIATRIC: + history of depression and anxiety. ENDOCRINOLOGIC: No reports of sweating, cold or heat intolerance. No polyuria orpolydipsia. ALLERGIES: No history of asthma, hives, eczema or rhinitis. Vital Signs Vital Signs Vital Signs: 12/04/23 16:48 12/04/23 20:09 12/04/23 20:10 Temperature 96.4 F L 97.8 F 97.8 F Temperature Source Temporal Oral Pulse Rate 81 74 74 Respiratory Rate 18 20 H 20 H Blood Pressure 127/83 H 119/75 119/75 Blood Pressure Mean 97 89 89 Pulse Ox 97 100 100 Oxygen Delivery Method Room Air Room Air Weight Weight: 188 lb 4.396 oz Body Mass Index (BMI) 34.6 Physical Exam Narrative Physical Examination: General: Awake, alert, oriented x 3 and cooperative, laying on her side in the ED, notes ongoing vague discomfort to the abdomen. Skin: Normal color, normal turgor, no icterus, no cyanosis except occasional staged ecchymoses. HEENT: AT/NC, EOMI, PERRLA, mildly dry MM, lack of dentition, no carotid bruits or JVD noted. Lungs: CTA bilaterally, moderate effort, mild decrease BL bases, no rales, ronchi or wheezing. Heart: Regular rate and rhythm; no gallop, rub audible. Abdomen: Soft, mild generalized discomfort but no rebound or guarding, mildly distended but not tense with reaccumulation of ascites noted, mildly hyperactiveBS, given ascites reaccumulation difficult to appreciate HM. Extremities: No cyanosis, no clubbing, no marked significant peripheral edema but she has in the past. Neurological: Patient awake, alert, oriented as noted, cognitive function currently baseline intact; pupils equally reactive to light and accommodation, cranial nerves II-XII grossly normal, moving all 4 extremities, no focal deficits, strength mildly to moderately globally decreased secondary to acute complaints. Psychiatric: Affect appears uncomfortable, reports being fed up with her ongoinghealth issues, does admit to being depressed but denies suicidal ideation. Results Lab / Micro Data 12/04/23 17:25 12/04/23 17:25 Labs: Laboratory Results - last 24 hr 12/04/23 17:25: WBC 6.1, RBC 3.68 L, Hgb 8.9 L, Hct 30.2 L, MCV 82.1, MCH 24.2 L, MCHC 29.5 L, RDW Std Deviation 79.4 H, RDW Coeff of Katalina 27.1 H, Plt Count 87 L, MPV 9.5, Immature Gran % (Auto) 0.300, Neut % (Auto) 62.4, Lymph % (Auto) 23.3, Coos % (Auto) 10.7 H, Eos % (Auto) 2.3, Baso % (Auto) 1.0, Absolute Neuts (auto) 3.8, Absolute Lymphs (auto) 1.43, Nucleated RBC % 0, Differential CommentSCANNED, Hypochromasia 1+, Anisocytosis 2+, Microcytosis 1+, Macrocytosis 1+, Target Cells RARE, PT 20.0 H, INR 1.7, Sodium 142, Potassium 4.0, Chloride 110 H, Carbon Dioxide 27.0, Anion Gap 5, BUN 10, Creatinine 0.82, Estim Creat Clear Calc 83.21, Est GFR (MDRD) Af Amer 95, Est GFR (MDRD) Non-Af 79, BUN/Creatinine Ratio 12.2, Glucose 117 H, Calcium 8.4 L, Total Bilirubin 2.10 H, AST 58 H, ALT 47, Alkaline Phosphatase 143 H, Ammonia 45.0 H, Total Protein 7.3, Albumin 2.2 L, Globulin 5.1 H, Albumin/Globulin Ratio 0.4 L, Lipase 30 12/04/23 17:51: Urine Color Yellow, Urine Clarity Sl. Cloudy, Urine pH 6.5, Ur Specific [place] 1.015, Urine Protein 30 H, Urine Glucose (UA) Normal, Urine Ketones 15 H, Urine Occult Blood 50 H, Urine Nitrite Positive H, Urine Bilirubin3 H, Urine Urobilinogen 8 H, Ur Leukocyte Esterase 500 H, Urine RBC 5-10 SEEN, Urine WBC 25-50 SEEN, Ur Squamous Epith Cells 0-5 SEEN, Amorphous Sediment 1+ URATE, Urine Bacteria RARE, Urine Mucus 0 SEEN Imaging Radiology Impression Abdomen/Pelvis CT 12/04/23 17:14 IMPRESSION: 1. 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 2. Diffuse abdominal ascites. 3. Splenomegaly. 4. Hepatic cirrhosis. 5. Portal hypertension. 6. Nonobstructive right renal stones measuring up to 10 mm. Electronically Signed: Tejas Bhakta MD at 19:07 EDT Reading Location ID and State: [facility] / [place] , Service support , Assessment & Plan Assessment/Plan (1) Cirrhosis of liver: QUALIFIERS: Ascites presence: with ascites Hepatic cirrhosis type: unspecified hepatic cirrhosis Qualified Code(s): K74.60 - Unspecified cirrhosis of liver; R18.8 - Other ascites PLAN: Plan The patient is a 48 y/o F w/ PMHx: Obesity, Chronic anemia/iron deficiency anemia, Anxiety and Depression, Chronic hepatitis C/cirrhosis with chronic LFT/Bilirubin elevations w/ Hx polysubstance abuse (heroin, cannabis, methamphetamine), Tobacco use, Chronic thrombocytopenia who presents to the [facility] ED on 12/04/23 with history of generalized abdominal discomfort over the last 48 hours with dysuria over the last several days recently placed on Macrobid 1 weekprior by her PCP however she has not been taking it with recent paracentesis within the last couple weeks and patient also reports she is unsure if she is been taking her lactulose correctly with decreased appetite with no recent fevers or chills nor any emesis but given ongoing abdominal discomfort and dysuria prompted ED evaluation. #1. Acute Worsened Ascites w/ Acute Decompensated Cirrhosis with abdominal discomfort likely associated, quick reaccumulation with mild hyperammonemia withalcohol abuse history, still with current alcohol intake: Will admit to MS, maintain on low Na/DM diet, water 1500 ml restriction, continue patient home oral Lasix, spironolactone, lactulose regimen, presentation ammonia level very mildly elevated 45, repeat ammonia level in AM, request repeat therapeutic paracentesis, continue treatment for possible UTI as noted below concurrently. Strongly encourage absolute sobriety which was discussed at length with patient given underlying cirrhotic disease. Case management consulted. #2. Acute Complicated Urinary Tract Infection: UA upon ED evaluation remarkable, pending UCx, monitor I/Os, continue IV Rocephin w/ transition as able pending sensitivities and speciation. #3. Chronic COPD: Will hold all home inhalers in the interim placed on ATC budesonide therapy, PRN albuterol, HOB, IS parameters. #4. Incidental nonobstructive right renal stones: CT abdomen pelvis with nonobstructive right renal stones measuring up to 10 mm. #5. History of polysubstance abuse: Patient with prior history of IV drug abusewith last usage approximately 7 years prior to current presentation with previous heroin, methamphetamine, cannabis usage, UDS requested. = #6. Anxiety and depression: Per current list on a regimen, clarifying as patient in the past had been on a significant regimen including duloxetine, desvenlafaxine, aripiprazole home regimen. Given patient's significant displeasure with her ongoing health issues would be imperative to potentially restart medications as well as outpatient counseling. Case management consulted. #7. Chronic normocytic anemia/iron deficiency anemia: Admission hemoglobin 8.9,MCV 82.1, baseline hemoglobin most recently primarily 9 range although occasionally 10, 11/10/2019 410.3, will continue to trend, continue iron supplementation. #8. Chronic thrombocytopenia: Secondary to underlying liver disease, admission platelets 87, baseline primarily 50-100 range, will continue to trend. #9. Tobacco Abuse: Encouraged cessation, inpatient consultation per RT, NR if desired. #10. Obesity: Weight loss and lifestyle changes encouraged. #11. GERD: Per current list on a regimen, clarifying, will have as needed Mylanta. #12. SUMAYA: Encourage CPAP nightly. #13. DVT prophylaxis: SCDs, defer chemoprophylaxis given planned paracentesis and thrombocytopenia. #14. CODE status: Patient does not have healthcare power of title attorney nor livingwill. Full Code status. Charges/Coding Visit Charges Inpatient E&M: 82306 Init Hosp L3 12/04/232127 <Electronically signed by Sowmya Mirza MD> Cosigner Signature (if applicable): CC: Dr. Sowmya Mirza MD; Dr. Dacia Acosta MD~ Signed [facility] Work Phone: Hospital Discharge instructions Additional Instructions Do not pick at the wound. Take both antibiotics the Bactrim 1 pill twice a day and Keflex 1 pill 4 times a day till gone. Follow-up with your doctor if not improving.[facility] Work Phone: Hospital Discharge instructions Additional Instructions Thank you for trusting us with your care today! Please take Tylenol (2 pills, 650 mg), ibuprofen (2 pills, 400 mg) every 6 hours as needed for pain and fever control. Please continue take your previously prescribed antibiotics. Please take prednisone as prescribed for increased anti-inflammatory control. Please return to the emergency department if your symptoms change or worsen. Specifically if develop drooling, worsening throat pain, shortness of breath, chest pain, if you develop loud inspiratory noises (this is called stridor). Please follow with your primary care physician for further outpatient evaluation and management.[facility] Work Phone: Hospital Discharge instructions Additional Instructions Your laboratory values look better than they did in recent weeks. Your heart rate was between 45 and 55, stop the nadolol and follow-up with your PCP. Return for any worsening symptoms.[facility] Work Phone: Hospital Discharge instructions Additional Instructions Thank you for trusting us with your care today! Please take Tylenol (2 pills, 650 mg), ibuprofen (2 pills, 400 mg) every 6 hours as needed for pain and fever control. Please take your medicine as prescribed. Please return to the emergency department if your symptoms change or worsen. Please follow with your primary care physician, independent distributor for further outpatient evaluation and management.[facility] Work Phone: Hospital Discharge instructions* Attachments The following attachments cannot be sent through Care Everywhere. * Ascites (General Information) (Ghanaian) * Cirrhosis of the Liver (General Information) (Ghanaian) * Paracentesis (General Information) (Ghanaian) * Naloxone (Into the nose) (Ghanaian) [facility]* Attachments The following attachments cannot be sent through Care Everywhere. * Paracentesis (Discharge Care) (Ghanaian) [facility]* Attachments The following attachments cannot be sent through Care Everywhere. * Paracentesis (Discharge Care) (Ghanaian) [facility]* Attachments The following attachments cannot be sent through Care Everywhere. * Cirrhosis of the Liver (Discharge Care) (Ghanaian) * Abdominal Pain (Discharge Care) (Ghanaian) * Paracentesis (Discharge Care) (Ghanaian) * Nicotine (Absorbed through the skin) (Ghanaian) * Ascites (Discharge Care) (Ghanaian) [facility] Additional Instructions Your abdominal scan with mild increase in ascites. However overall no significant fluid seen. Your labs are all stable. Similar platelets, similar liver enzyme elevation. Your creatinine 0.97. Your concern for increasing edema of your legs. Increase your Lasix to twice a day for the next 5 days. Keep your palliative care appointment at 1 PM today. Follow-up with Dr. Adams with GI.[facility] Work Phone: Reason for referral (narrative)* Diagnostic Procedure Only (Routine) - Pending Review Specialty Diagnoses / Procedures Referred By Marivel cao Referred To Contact [facility] Diagnoses Encounter for screening mammogram for breast cancer Procedures JEANETH SCREENING SCREENING MAMMOGRAPHY BI 2-VIEW BREAST INC CAD Dacia Acosta MD [address] [place] [address] [facility] [address] [place] [address] Referral ID Status Reason Start Date Expiration Date Visits Requested Visits Authorized [id number] Pending Review Auto-Generat ed Referral 03/24/2022 04/23/2023 1 1 [facility] for referral (narrative)* Diagnostic Procedure Only (Routine) - Closed Specialty Diagnoses / Procedures Referred By Marivel cao Referred To Contact [facility] IM[facility] Diagnoses Encounter for screening mammogram for breast cancer Procedures JEANETH SCREENING SCREENING MAMMOGRAPHY BI 2-VIEW BREAST INC Dacia Rice MD [address] [place] [address] [facility] [address] [place] [address] Referral ID Status Reason Start Date Expiration Date V isits Requested Visits Authorized [id number] Closed Auto-Generate d Referral 03/24/2022 04/23/2023 1 1 [facility] for referral (narrative)* Diagnostic Procedure Only (Routine) - Authorized Specialty Diagnoses / Procedures Referred By Marivel cao Referred To Contact [facility] Diagnoses Encounter for screening mammogram for breast cancer Procedures JEANETH SCREENING SCREENING MAMMOGRAPHY BI 2-VIEW BREAST INC Dacia Rice MD [address] [place] [address] [facility] [address] [place] [address] Referral ID Status Reason Start Date Expiration Date Visits Requested Visits Authorized [id number] Authorized Auto-Generat ed Referral 02/29/2024 03/30/2025 1 1 [facility] for referral (narrative)* Consultation (Routine) - Incomplete Specialty Diagnoses / Procedures Referred By Contact Referred To Contact Interventional Radiology / Radiology Diagnoses Alcoholic cirrhosis of liver with ascites (CMS/HCC) Chronic hepatitis C with cirrhosis (CMS/HCC) Pete Ponce MD [facility] [address] [place] [address] [facility] Interventional Rad [address] [place] [phone] Referral ID Status Reason Start Date Expiration Date V isits Requested Visits Authorized [id number] Incomplete 07/02/2024 07/02/2025 1 1 [facility] Consultation (Routine) - Canceled Specialty Diagnoses / Procedures Referred By Contact Referred To Contact Interventional Radiology / Radiology Diagnoses Cirrhosis of liver (CMS/HCC) Pete Ponce MD [facility]. [address] [place] [address] K[facility] Interventional Rad [address] [place] [address] Referral ID Status Reason Start Date Expiration Date V isits Requested Visits Authorized [id number] Canceled 07/05/2024 07/05/2025 1 1 [facility] Consultation (Routine) - Incomplete Specialty Diagnoses / Procedures Referred By Contact Referred To Contact Interventional Radiology Diagnoses Abdominal pain Ascites Isabella Ch MD [address] [place] [address] K[facility] Interventional Rad [address] [place] [phone] Referral ID Status Reason Start Date Expiration Date V isits Requested Visits Authorized [id number] Incomplete 12/13/2024 12/13/2025 1 1 [facility] for referral (narrative)No reason for referral information availableWMetro[facility] Work Phone: Reason for visit Narrative* Diagnostic Procedure Only (Routine) - Closed Specialty Diagnoses / Procedures Referred By Contac t Referred To Contact [facility] Diagnoses Encounter for screening mammogram for breast cancer Procedures JEANETH SCREENING SCREENING MAMMOGRAPHY BI 2-VIEW BREAST INC Dacia Rice MD [address] [place] [address] [facility] [address] [place] [address] Referral ID Status Reason Start Date Expiration Date V isits Requested Visits Authorized [id number] Closed Auto-Generate d Referral 03/24/2022 04/23/2023 1 1 [facility] Summary Purpose Family History No Family History Records Found Relationship Condition Age at Onset Recorded Date/T sherry mother Diabetes mellitus Unknown father Malignant neoplasm Unknown Advance Directives No Advanced Directives Records Found Date Activated Date Inactivated Comments 12/10/2024 3:43 AM 12/13/2024 9:04 PM Date Activated Date Inactivated Comments 09/02/2024 4:48 AM 09/09/2024 4:49 PM Date Activated Date Inactivated Comments 07/09/2024 3:28 AM 07/10/2024 6:51 PM Documents on File Type Date Recorded Patient [employer] Developer Expl anation Advance Directive(s) 08/05/2018 8:00 PM Advance Directive(s) 08/04/2018 9:24 AM Documents on File Type Date Recorded Patient [employer] Developer Expl anation Advance Directive(s) 08/05/2018 8:00 PM Advance Directive(s) 08/04/2018 9:24 AM Advance Directive Response Recorded Date/ Time Advance Directives No December 24 5:29pm Living Will No May 15 7:58pm Power of Real Estate Operations Manager No May 15 7:58pm Advance Directive Response Recorded Date/ Time Advance Directives No December 24 5:29pm Living Will No May 19 2 6:05pm Power of Real Estate Operations Manager No May 19 6:05pm Advance Directive Response Recorded Date/ Time Advance Directives No December 24 5:29pm Living Will No May 19 2 10:31pm Power of Real Estate Operations Manager No May 19 10:31pm Advance Directive Response Recorded Date/ Time Advance Directives No December 24 4:29pm Living Will No May 19 9:31pm Power of Real Estate Operations Manager No May 19 9:31pm Advance Directive Response Recorded Date/ Time Advance Directives No December 24 4:29pm Living Will No Gerard 20th, 2 022 3:18pm Power of Real Estate Operations Manager No September 14, 2022 3:18pm Advance Directive Response Recorded Date/ Time Advance Directives No December 24, 2 014 5:29pm Living Will No April 25, 2023 3:29pm Power of Real Estate Operations Manager No April 25 3:29pm Advance Directive Response Recorded Date/ Time Advance Directives No December 24, 2 014 5:29pm Living Will No July 20 5:57pm Power of Real Estate Operations Manager No July 20, 2023 5:57pm Advance Directive Response Recorded Date/ Time Advance Directives No December 24, 2 014 5:29pm Living Will No July 21 3:03am Power of Real Estate Operations Manager No July 21, 2023 3:03am Advance Directive Response Recorded Date/ Time Advance Directives No December 24, 2 014 4:29pm Living Will No August 22, 023 7:03am Power of Real Estate Operations Manager No August 22, 2023 7:03am Latest Code Status on File Code Status Date Activated Date Inactivated Comments Full Code 09/10/2023 5:47 AM 09/15/2023 8:53 PM Latest Code Status on File Code Status Date Activated Date Inactivated Comments Full Code 09/10/2023 5:47 AM 09/15/2023 8:53 PM Advance Directive Response Recorded Date/ Time Advance Directives No December 24, 2 014 4:29pm Living Will No September 24, 2 023 8:43pm Power of Real Estate Operations Manager No September 24, 2023 8:43pm Advance Directive Response Recorded Date/ Time Advance Directives No December 24, 2 014 4:29pm Living Will No October 06 11:14pm Power of Real Estate Operations Manager No October 06, 2023 11:14pm Advance Directive Response Recorded Date/ Time Advance Directives No December 24, 2 014 4:29pm Living Will No November 05 024 7:41pm Power of Real Estate Operations Manager No November 05, 2023 7:41pm Advance Directive Response Recorded Date/ Time Advance Directives No December 24, 2 014 4:29pm Living Will No November 10, 2 024 4:09pm Power of Real Estate Operations Manager No November 10, 2023 4:09pm Latest Code Status on File Code Status Date Activated Date Inactivated Comments Full Code 11/18/2023 5:41 PM 11/23/2023 8:49 PM Question Answer Comments Full Code Order Discussed With: Patient Advance Directive Response Recorded Date/ Time Advance Directives No December 24, 014 5:29pm Living Will No December 04, 2023 5:14pm Power of Real Estate Operations Manager No December 03 5:14pm Advance Directive Response Recorded Date/ Time Advance Directives No December 24 2 014 5:29pm Living Will No December 04, 2023 10:16pm Power of Real Estate Operations Manager No December 03 10:16pm Date Activated Date Inactivated Comments 11/18/2023 5:41 PM 11/23/2023 8:49 PM Question Answer Comments Full Code Order Discussed With: Patient Advance Directive Response Recorded Date/ Time Advance Directives No December 24, 014 5:29pm Living Will No December 09, 2023 6:53pm Power of Real Estate Operations Manager No December 08 6:53pm Advance Directive Response Recorded Date/ Time Advance Directives No December 24 014 5:29pm Living Will No December 26, 2023 11:09am Power of Real Estate Operations Manager No December 25 11:09am Date Activated Date Inactivated Comments 11/18/2023 5:41 PM 11/23/2023 8:49 PM Question Answer Comments Full Code Order Discussed With: Patient Advance Directive Response Recorded Date/ Time Advance Directives No December 24 014 4:29pm Living Will No November 07 8:02am Power of Real Estate Operations Manager No November 07, 2023 8:02am Date Activated Date Inactivated Comments 07/09/2024 3:28 AM 07/10/2024 6:51 PM Date Activated Date Inactivated Comments 07/09/2024 3:28 AM 07/10/2024 6:51 PM Date Activated Date Inactivated Comments 09/02/2024 4:48 AM 09/09/2024 4:49 PM Date Activated Date Inactivated Comments 07/09/2024 3:28 AM 07/10/2024 6:51 PM Date Activated Date Inactivated Comments 09/02/2024 4:48 AM 09/09/2024 4:49 PM Date Activated Date Inactivated Comments 07/09/2024 3:28 AM 07/10/2024 6:51 PM Date Activated Date Inactivated Comments 12/10/2024 3:43 AM Advance Directive Response Recorded Date/ Time Advance Directives No January 18, 3:18pm Do you have a Healthcare Power of Real Estate Operations Manager? No February 04, 2025 11:45am Advance Directive Response Recorded Date/ Time Advance Directives No January 18, 3:18pm Do you have a Healthcare Power of Real Estate Operations Manager? No February 04, 2025 11:45am Do you have a Healthcare Power of Real Estate Operations Manager? No February 08, 2025 11:25am Advance Directive Response Recorded Date/ Time Advance Directives No January 18, 3:18pm Do you have a Healthcare Power of Real Estate Operations Manager? No February 04, 2025 11:45am Do you have a Healthcare Power of Real Estate Operations Manager? No February 08, 2025 11:25am Do you have a Healthcare Power of Real Estate Operations Manager? No February 21, 2025 11:54pm Health Concerns Infection Onset Date Last Indicated [...] Acne vulgaris Procedures CONSULT TO DERMATOLOGY Tresa Sandoval APRN.CNP [address] [place] [address] Referral ID Status Reason Start Date Expiration Date Visits Requested Visits Authorized [id number] Ref Not Required PCP Requested Referral 03/11/2022 03/11/2023 1 1 Specialty Diagnoses / Procedures Referred By Contac t Referred To Contact Saima Lim MD [address] [place] [address] Referral ID Status Reason Start Date Expiration Date V isits Requested Visits Authorized [id number] Pending Review 1 1 Specialty Diagnoses / Procedures Referred By Contac t Referred To Contact Dermatology Diagnoses Open wound of skin Procedures CONSULT TO DERMATOLOGY [facility] PA-C [address] [place] [address] Referral ID Status Reason Start Date Expiration Date Visits Requested Visits Authorized [id number] Ref Not Required PCP Requested Referral 11/01/2023 10/31/2024 1 1 Specialty Diagnoses / Procedures Referred By Contac t Referred To Contact Gynecology Diagnoses History of abnormal cervical Pap smear Procedures CONSULT TO GYNECOLOGY OFFICE/OUTPATIENT [facility] 60 MINUTES Krishna Lara APRN.COMMUNITY SERVICE OFFICER [address] [place] [address] Referral ID Status Reason Start Date Expiration Date Visits Requested Visits Authorized [id number] Authorized PCP Requested Referral Auto-Generate d Referral 05/10/2024 05/10/2025 1 1 Specialty Diagnoses / Procedures Referred By Contac t Referred To Contact CT IMAGING Diagnoses Diarrhea, unspecified type Procedures CT ABD/PEL W IVCON CT ABD & PELVIS W/CONTRAST Krishna Lara, HIRO.COMMUNITY SERVICE OFFICER [address] [place] [address] [place] [id number] Referral ID Status Reason Start Date Expiration Date Visits Requested Visits Authorized [id number] Pending Review Auto-Genera mary Referral Patient Cleared - Admin/Chair man/Directo r advise to proceed or did not respond 05/10/2024 06/09/2025 4 2 Specialty Diagnoses / Procedures Referred By Contac t Referred To Contact Radiology Diagnoses Visit for screening mammogram Procedures Mammo Screening (3D) Bilateral Referral, Self [address] [place] [address] [facility] Mammography [address] [place] [phone] Referral ID Status Reason Start Date Expiration Date Visits Re quested Visits Authorized [id number] Closed 08/16/2024 08/16/2025 1 1 Chief Complaint and Reason for Visit Chief Complaint wound Chief Complaint wound HEPATIC ENCEPHALOPATHY Reason for Visit Acute hepatic enceph alopathy Hyperammonemia Chief Complaint wound HEPATIC ENCEPHALOPATHY HEPATIC ENCEPHALOPATHY HEPATIC ENCEPHALOPATHY Reason for Visit Acute hepatic enceph alopathy Hyperammonemia Chief Complaint wound HEPATIC ENCEPHALOPATHY HEPATIC ENCEPHALOPATHY HEPATIC ENCEPHALOPATHY H FU E ORDER Reason for Visit Acute hepatic enceph alopathy Hyperammonemia Cirrhosis of liver Hepatitis C, chronic Chief Complaint HEPATIC ENCEPHALOPAT HY HEPATIC ENCEPHALOPATHY HEPATIC ENCEPHALOPATHY H FU E ORDER Reason for Visit Acute hepatic enceph alopathy Hyperammonemia Cirrhosis of liver Hepatitis C, chronic Chief Complaint abdominal pain, swel ling and bruising Chief Complaint abdominal pain, swel ling and bruising ASCITES WITH PORSSIBLE SBP Reason for Visit Ascites Hyperbilirubinemia Skin ulcer of left great toe Subungual hematoma of great toe of left foot Cirrhosis of liver Chief Complaint abdominal pain, swel ling and bruising ASCITES WITH PORSSIBLE SBP ASCITES WITH PORSSIBLE SBP ASCITES WITH PORSSIBLE SBP Reason for Visit Ascites Hyperbilirubinemia Skin ulcer of left great toe Subungual hematoma of great toe of left foot Cirrhosis of liver Chief Complaint abdominal pain, swel ling and bruising ASCITES WITH PORSSIBLE SBP ASCITES WITH PORSSIBLE SBP ASCITES WITH PORSSIBLE SBP ISSUES ASCITES ASCITES MENTAL HEALTH Reason for Visit Cirrhosis of liver Skin ulcer of left great toe Ascites Subungual hematoma of great toe of left foot Cirrhosis of liver Iron deficiency anemia Skin ulcer of left great toe Hepatitis C, chronic Subungual hematoma of great toe of left foot Ascites Chief Complaint ASCITES WITH PORSSIB LE SBP ASCITES WITH PORSSIBLE SBP ASCITES WITH PORSSIBLE SBP ISSUES ASCITES ASCITES MENTAL HEALTH Cold symptoms Reason for Visit Cirrhosis of liver Skin ulcer of left great toe Ascites Subungual hematoma of great toe of left foot Cirrhosis of liver Iron deficiency anemia Skin ulcer of left great toe Hepatitis C, chronic Subungual hematoma of great toe of left foot Ascites Chief Complaint ASCITES WITH PORSSIB LE SBP ASCITES WITH PORSSIBLE SBP ASCITES WITH PORSSIBLE SBP ISSUES ASCITES ASCITES MENTAL HEALTH Cold symptoms ASCITES ASCITES ASCITES ASCITES Reason for Visit Cirrhosis of liver Skin ulcer of left great toe Ascites Subungual hematoma of great toe of left foot Cirrhosis of liver Iron deficiency anemia Skin ulcer of left great toe Hepatitis C, chronic Subungual hematoma of great toe of left foot Ascites Cirrhosis of liver Ascites Chief Complaint ASCITES WITH PORSSIB LE SBP ASCITES WITH PORSSIBLE SBP ASCITES WITH PORSSIBLE SBP ISSUES ASCITES ASCITES MENTAL HEALTH Cold symptoms ASCITES ASCITES ASCITES abd pain Reason for Visit Cirrhosis of liver Skin ulcer of left great toe Ascites Subungual hematoma of great toe of left foot Cirrhosis of liver Iron deficiency anemia Skin ulcer of left great toe Hepatitis C, chronic Subungual hematoma of great toe of left foot Ascites Cirrhosis of liver Ascites Chief Complaint ASCITES WITH PORSSIB LE SBP ASCITES WITH PORSSIBLE SBP ASCITES WITH PORSSIBLE SBP ISSUES ASCITES ASCITES MENTAL HEALTH Cold symptoms ASCITES ASCITES ASCITES abd pain ABD abd pain Reason for Visit Cirrhosis of liver Skin ulcer of left great toe Ascites Subungual hematoma of great toe of left foot Cirrhosis of liver Iron deficiency anemia Skin ulcer of left great toe Hepatitis C, chronic Subungual hematoma of great toe of left foot Ascites Cirrhosis of liver Ascites Chief Complaint ASCITES ASCITES MENTAL HEALTH Cold symptoms ASCITES ASCITES ASCITES abd pain ABD abd pain DECOMPENSATED CIRRHOSIS, UTI Reason for Visit Ascites Cirrhosis of liver Ascites Cirrhosis of liver Chief Complaint ASCITES ASCITES MENTAL HEALTH Cold symptoms ASCITES ASCITES ASCITES abd pain ABD abd pain DECOMPENSATED CIRRHOSIS, UTI DECOMPENSATED CIRRHOSIS, UTI DECOMPENSATED CIRRHOSIS, UTI DECOMPENSATED CIRRHOSIS, UTI DECOMPENSATED CIRRHOSIS, UTI DECOMPENSATED CIRRHOSIS, UTI DECOMPENSATED CIRRHOSIS, UTI Reason for Visit Ascites Cirrhosis of liver Ascites Chronic pain of toe of right foot Cirrhosis of liver Iron deficiency anemia Nail dystrophy Tinea unguium Hepatitis C, chronic Ascites Chief Complaint ASCITES ASCITES MENTAL HEALTH Cold symptoms ASCITES ASCITES ASCITES abd pain ABD abd pain DECOMPENSATED CIRRHOSIS, UTI DECOMPENSATED CIRRHOSIS, UTI DECOMPENSATED CIRRHOSIS, UTI DECOMPENSATED CIRRHOSIS, UTI DECOMPENSATED CIRRHOSIS, UTI DECOMPENSATED CIRRHOSIS, UTI DECOMPENSATED CIRRHOSIS, UTI DECOMPENSATED CIRRHOSIS, UTI abd PAIN Reason for Visit Ascites Cirrhosis of liver Ascites Chronic pain of toe of right foot Cirrhosis of liver Iron deficiency anemia Nail dystrophy Tinea unguium Hepatitis C, chronic Ascites Chief Complaint Cold symptoms ASCITES ASCITES ASCITES abd pain ABD abd pain DECOMPENSATED CIRRHOSIS, UTI DECOMPENSATED CIRRHOSIS, UTI DECOMPENSATED CIRRHOSIS, UTI DECOMPENSATED CIRRHOSIS, UTI DECOMPENSATED CIRRHOSIS, UTI DECOMPENSATED CIRRHOSIS, UTI DECOMPENSATED CIRRHOSIS, UTI DECOMPENSATED CIRRHOSIS, UTI abd PAIN Reason for Visit Ascites Chronic pain of toe of right foot Iron deficiency anemia Nail dystrophy Tinea unguium Hepatitis C, chronic Ascites Chief Complaint ASCITES WITH PORSSIB LE SBP ASCITES WITH PORSSIBLE SBP ASCITES WITH PORSSIBLE SBP ISSUES ASCITES ASCITES MENTAL HEALTH Cold symptoms ASCITES ASCITES ASCITES abd pain ABD Reason for Visit Cirrhosis of liver Skin ulcer of left great toe Ascites Subungual hematoma of great toe of left foot Cirrhosis of liver Iron deficiency anemia Skin ulcer of left great toe Hepatitis C, chronic Subungual hematoma of great toe of left foot Ascites Cirrhosis of liver Ascites Chief Complaint Admit Date DISCUSS PARACENTESIS NOSE BLEEDS December 272024 2:48pm abd February 04, 2025 10:58 am Reason for Visit Admit Date Cirrhosis of liver January 23, 2025 2:4 8pm Hepatitis C, chronic January 23, 2025 2: 48pm Chief Complaint Admit Date DISCUSS PARACENTESIS NOSE BLEEDS December 272024 2:48pm abd February 04, 2025 10:58 am PAIN February 08, 2025 11:16 am Chief Complaint Admit Date DISCUSS PARACENTESIS NOSE BLEEDS December 272024 2:48pm abd February 04, 2025 10:58 am PAIN February 08, 2025 11:16 am ABD PAIN February 21, 2025 10:34 pm Additional Source Comments INFORMATION SOURCE (unrecogn ized section and content) DATE CREATED AUTHOR 09/03/2018 [facility] DATE CREATED AUTHOR AUTHOR'S ORGANIZ ATION 10/02/2023 [facility] DATE CREATED AUTHOR AUTHOR'S ORGANIZ ATION 11/27/2023 [facility] DATE CREATED AUTHOR AUTHOR'S ORGANIZ ATION 03/30/2024 [facility] ([place] DATE CREATED AUTHOR AUTHOR'S ORGANIZ ATION 06/08/2024 [facility] DATE CREATED AUTHOR AUTHOR'S ORGANIZ ATION 06/21/2024 [facility] DATE CREATED AUTHOR AUTHOR'S ORGANIZ ATION 10/13/2024 [facility] DATE CREATED AUTHOR AUTHOR'S ORGANIZ ATION 01/18/2025 [facility] DATE CREATED AUTHOR AUTHOR'S ORGANIZ ATION 02/20/2025 [facility] DATE CREATED AUTHOR AUTHOR'S ORGANIZ ATION 02/26/2025 [facility] Source Comments (unrecognize d section and content) In the event this informatio n is protected by the Federal Confidentiality of Alcohol and Drug Abuse Patient Records regulations: The Federal rules restrict any use of the information to criminally investigate or prosecute any alcohol or drug abuse patient.[facility] the event this information is protected by the Federal Confidentiality of Alcohol and Drug Abuse Patient Records regulations: The Federal rules restrict any use of the information to criminally investigate or prosecute any alcohol or drug abuse patient.[facility]In the event this information is protected by the Federal Confidentiality of Alcohol and Drug Abuse Patient Records regulations: The Federal rules restrict any use of the information to criminally investigate or prosecute any alcohol or drug abuse patient.[facility]In the event this information is protected by the Federal Confidentiality of Alcohol and Drug Abuse Patient Records regulations: The Federal rules restrict any use of the information to criminally investigate or prosecute any alcohol or drug abuse patient.[facility]In the event this information is protected by the Federal Confidentiality of Alcohol and Drug Abuse Patient Records regulations: The Federal rules restrict any use of the information to criminally investigate or prosecute any alcohol or drug abuse patient.[facility]In the event this information is protected by the Federal Confidentiality of Alcohol and Drug Abuse Patient Records regulations: The Federal rules restrict any use of the information to criminally investigate or prosecute any alcohol or drug abuse patient.[facility]In the event this information is protected by the Federal Confidentiality of Alcohol and Drug Abuse Patient Records regulations: The Federal rules restrict any use of the information to criminally investigate or prosecute any alcohol or drug abuse patient.[facility]In the event this information is protected by the Federal Confidentiality of Alcohol and Drug Abuse Patient Records regulations: The Federal rules restrict any use of the information to criminally investigate or prosecute any alcohol or drug abuse patient.[facility]In the event this information is protected by the Federal Confidentiality of Alcohol and Drug Abuse Patient Records regulations: The Federal rules restrict any use of the information to criminally investigate or prosecute any alcohol or drug abuse patient.[facility]In the event this information is protected by the Federal Confidentiality of Alcohol and Drug Abuse Patient Records regulations: The Federal rules restrict any use of the information to criminally investigate or prosecute any alcohol or drug abuse patient.[facility] HospitalIn the event this information is protected by the Federal Confidentiality of Alcohol and Drug Abuse Patient Records regulations: The Federal rules restrict any use of the information to criminally investigate or prosecute any alcohol or drug abuse patient.[facility] HospitalIn the event this information is protected by the Federal Confidentiality of Alcohol and Drug Abuse Patient Records regulations: The Federal rules restrict any use of the information to criminally investigate or prosecute any alcohol or drug abuse patient.[facility] HospitalIn the event this information is protected by the Federal Confidentiality of Alcohol and Drug Abuse Patient Records regulations: The Federal rules restrict any use of the information to criminally investigate or prosecute any alcohol or drug abuse patient.[facility] HospitalIn the event this information is protected by the Federal Confidentiality of Alcohol and Drug Abuse Patient Records regulations: The Federal rules restrict any use of the information to criminally investigate or prosecute any alcohol or drug abuse patient.[facility] HospitalIn the event this information is protected by the Federal Confidentiality of Alcohol and Drug Abuse Patient Records regulations: The Federal rules restrict any use of the information to criminally investigate or prosecute any alcohol or drug abuse patient.[facility] HospitalIn the event this information is protected by the Federal Confidentiality of Alcohol and Drug Abuse Patient Records regulations: The Federal rules restrict any use of the information to criminally investigate or prosecute any alcohol or drug abuse patient.[facility] HospitalIn the event this information is protected by the Federal Confidentiality of Alcohol and Drug Abuse Patient Records regulations: The Federal rules restrict any use of the information to criminally investigate or prosecute any alcohol or drug abuse patient.[facility] HospitalIn the event this information is protected by the Federal Confidentiality of Alcohol and Drug Abuse Patient Records regulations: The Federal rules restrict any use of the information to criminally investigate or prosecute any alcohol or drug abuse patient.[facility] HospitalIn the event this information is protected by the Federal Confidentiality of Alcohol and Drug Abuse Patient Records regulations: The Federal rules restrict any use of the information to criminally investigate or prosecute any alcohol or drug abuse patient.[facility] HospitalIn the event this information is protected by the Federal Confidentiality of Alcohol and Drug Abuse Patient Records regulations: The Federal rules restrict any use of the information to criminally investigate or prosecute any alcohol or drug abuse patient.[facility] HospitalIn the event this information is protected by the Federal Confidentiality of Alcohol and Drug Abuse Patient Records regulations: The Federal rules restrict any use of the information to criminally investigate or prosecute any alcohol or drug abuse patient.[facility] HospitalIn the event this information is protected by the Federal Confidentiality of Alcohol and Drug Abuse Patient Records regulations: The Federal rules restrict any use of the information to criminally investigate or prosecute any alcohol or drug abuse patient.[facility] HospitalIn the event this information is protected by the Federal Confidentiality of Alcohol and Drug Abuse Patient Records regulations: The Federal rules restrict any use of the information to criminally investigate or prosecute any alcohol or drug abuse patient.[facility] HospitalIn the event this information is protected by the Federal Confidentiality of Alcohol and Drug Abuse Patient Records regulations: The Federal rules restrict any use of the information to criminally investigate or prosecute any alcohol or drug abuse patient.[facility] HospitalIn the event this information is protected by the Federal Confidentiality of Alcohol and Drug Abuse Patient Records regulations: The Federal rules restrict any use of the information to criminally investigate or prosecute any alcohol or drug abuse patient.[facility] HospitalIn the event this information is protected by the Federal Confidentiality of Alcohol and Drug Abuse Patient Records regulations: The Federal rules restrict any use of the information to criminally investigate or prosecute any alcohol or drug abuse patient.[facility] HospitalIn the event this information is protected by the Federal Confidentiality of Alcohol and Drug Abuse Patient Records regulations: The Federal rules restrict any use of the information to criminally investigate or prosecute any alcohol or drug abuse patient.[facility] HospitalIn the event this information is protected by the Federal Confidentiality of Alcohol and Drug Abuse Patient Records regulations: The Federal rules restrict any use of the information to criminally investigate or prosecute any alcohol or drug abuse patient.[facility] HospitalIn the event this information is protected by the Federal Confidentiality of Alcohol and Drug Abuse Patient Records regulations: The Federal rules restrict any use of the information to criminally investigate or prosecute any alcohol or drug abuse patient.[facility] HospitalIn the event this information is protected by the Federal Confidentiality of Alcohol and Drug Abuse Patient Records regulations: The Federal rules restrict any use of the information to criminally investigate or prosecute any alcohol or drug abuse patient.[facility] HospitalIn the event this information is protected by the Federal Confidentiality of Alcohol and Drug Abuse Patient Records regulations: The Federal rules restrict any use of the information to criminally investigate or prosecute any alcohol or drug abuse patient.[facility] HospitalIn the event this information is protected by the Federal Confidentiality of Alcohol and Drug Abuse Patient Records regulations: The Federal rules restrict any use of the information to criminally investigate or prosecute any alcohol or drug abuse patient.[facility] HospitalIn the event this information is protected by the Federal Confidentiality of Alcohol and Drug Abuse Patient Records regulations: The Federal rules restrict any use of the information to criminally investigate or prosecute any alcohol or drug abuse patient.[facility] HospitalIn the event this information is protected by the Federal Confidentiality of Alcohol and Drug Abuse Patient Records regulations: The Federal rules restrict any use of the information to criminally investigate or prosecute any alcohol or drug abuse patient.[facility] HospitalIn the event this information is protected by the Federal Confidentiality of Alcohol and Drug Abuse Patient Records regulations: The Federal rules restrict any use of the information to criminally investigate or prosecute any alcohol or drug abuse patient.[facility] HospitalIn the event this information is protected by the Federal Confidentiality of Alcohol and Drug Abuse Patient Records regulations: The Federal rules restrict any use of the information to criminally investigate or prosecute any alcohol or drug abuse patient.[facility] HospitalIn the event this information is protected by the Federal Confidentiality of Alcohol and Drug Abuse Patient Records regulations: The Federal rules restrict any use of the information to criminally investigate or prosecute any alcohol or drug abuse patient.[facility] HospitalIn the event this information is protected by the Federal Confidentiality of Alcohol and Drug Abuse Patient Records regulations: The Federal rules restrict any use of the information to criminally investigate or prosecute any alcohol or drug abuse patient.[facility] HospitalIn the event this information is protected by the Federal Confidentiality of Alcohol and Drug Abuse Patient Records regulations: The Federal rules restrict any use of the information to criminally investigate or prosecute any alcohol or drug abuse patient.[facility] HospitalIn the event this information is protected by the Federal Confidentiality of Alcohol and Drug Abuse Patient Records regulations: The Federal rules restrict any use of the information to criminally investigate or prosecute any alcohol or drug abuse patient.[facility] HospitalIn the event this information is protected by the Federal Confidentiality of Alcohol and Drug Abuse Patient Records regulations: The Federal rules restrict any use of the information to criminally investigate or prosecute any alcohol or drug abuse patient.[facility] HospitalIn the event this information is protected by the Federal Confidentiality of Alcohol and Drug Abuse Patient Records regulations: The Federal rules restrict any use of the information to criminally investigate or prosecute any alcohol or drug abuse patient.[facility] HospitalIn the event this information is protected by the Federal Confidentiality of Alcohol and Drug Abuse Patient Records regulations: The Federal rules restrict any use of the information to criminally investigate or prosecute any alcohol or drug abuse patient.[facility] HospitalIn the event this information is protected by the Federal Confidentiality of Alcohol and Drug Abuse Patient Records regulations: The Federal rules restrict any use of the information to criminally investigate or prosecute any alcohol or drug abuse patient.[facility] HospitalIn the event this information is protected by the Federal Confidentiality of Alcohol and Drug Abuse Patient Records regulations: The Federal rules restrict any use of the information to criminally investigate or prosecute any alcohol or drug abuse patient.[facility] HospitalIn the event this information is protected by the Federal Confidentiality of Alcohol and Drug Abuse Patient Records regulations: The Federal rules restrict any use of the information to criminally investigate or prosecute any alcohol or drug abuse patient.[facility] HospitalIn the event this information is protected by the Federal Confidentiality of Alcohol and Drug Abuse Patient Records regulations: The Federal rules restrict any use of the information to criminally investigate or prosecute any alcohol or drug abuse patient.[facility] HospitalIn the event this information is protected by the Federal Confidentiality of Alcohol and Drug Abuse Patient Records regulations: The Federal rules restrict any use of the information to criminally investigate or prosecute any alcohol or drug abuse patient.[facility] HospitalIn the event this information is protected by the Federal Confidentiality of Alcohol and Drug Abuse Patient Records regulations: The Federal rules restrict any use of the information to criminally investigate or prosecute any alcohol or drug abuse patient.[facility] HospitalIn the event this information is protected by the Federal Confidentiality of Alcohol and Drug Abuse Patient Records regulations: The Federal rules restrict any use of the information to criminally investigate or prosecute any alcohol or drug abuse patient.[facility] HospitalIn the event this information is protected by the Federal Confidentiality of Alcohol and Drug Abuse Patient Records regulations: The Federal rules restrict any use of the information to criminally investigate or prosecute any alcohol or drug abuse patient.[facility] HospitalIn the event this information is protected by the Federal Confidentiality of Alcohol and Drug Abuse Patient Records regulations: The Federal rules restrict any use of the information to criminally investigate or prosecute any alcohol or drug abuse patient.[facility] HospitalIn the event this information is protected by the Federal Confidentiality of Alcohol and Drug Abuse Patient Records regulations: The Federal rules restrict any use of the information to criminally investigate or prosecute any alcohol or drug abuse patient.[facility] the event this information is protected by the Federal Confidentiality of Alcohol and Drug Abuse Patient Records regulations: The Federal rules restrict any use of the information to criminally investigate or prosecute any alcohol or drug abuse patient.[facility] Hospital[facility] the event this information is protected by the Federal Confidentiality of Alcohol and Drug Abuse Patient Records regulations: The Federal rules restrict any use of the information to criminally investigate or prosecute any alcohol or drug abuse patient.[facility] the event this information is protected by the Federal Confidentiality of Alcohol and Drug Abuse Patient Records regulations: The Federal rules restrict any use of the information to criminally investigate or prosecute any alcohol or drug abuse patient.[facility] Hospital[facility] the event this information is protected by the Federal Confidentiality of Alcohol and Drug Abuse Patient Records regulations: The Federal rules restrict any use of the information to criminally investigate or prosecute any alcohol or drug abuse patient.[facility] Hospital[facility] the event this information is protected by the Federal Confidentiality of Alcohol and Drug Abuse Patient Records regulations: The Federal rules restrict any use of the information to criminally investigate or prosecute any alcohol or drug abuse patient.[facility] Reason for Visit (unrecogniz ed section [...] (HCC) Procedures . Cindi Salas MD [address] [facility] [address] [place] [address] [facility] [address] [place] [address] Referral ID Status Reason Start Date Expiration Date Visits Re quested Visits Authorized [id number] 1 1 Reason Comments Derm Problem Sore on chin, states has been there for years, she has a hard time not touching it, painful Reason Comments Patient Update Reason Onset Date Comments Transition Of Care 11/24/2023 [facility] Pharm[facility]- Hospital discharge 11/23/23 Reason Comments Transition Of Care Reason Comments Appointment Patient Update Reason Comments ER F/U [facility] multiple times f rom 10/2023-11/3023: abdominal pain, cirrhosis of liver, ascites Reason Onset Date Comments Refill Request 01/19/2024 Reason Comments Same Day Appointment chin sore x 1 month and left foot sores x 4 days Reason Comments Hematuria Reason Comments Rash Chin /left foot Reason Onset Date Comments Transition Of Care 04/17/2024 [facility] D/C 2023 Reason Comments Transition Of Care [facility] Reason Comments Medication Question Reason Comments Urinary Frequency nausea x 2 days, sor e on chin x 2 days, cuts between toes from new flipflops Reason Comments Results Urine Cx mixed Reason Comments ER F/U Specialty Diagnoses / Procedures Referred By Marivel cao Referred To Contact CT IMAGING Diagnoses Diarrhea, unspecified type Procedures CT ABD/PEL W IVCON CT ABD & PELVIS W/CONTRAST Krishna Lara APRN.COMMUNITY SERVICE OFFICER [address] [place] [address] [place] [id number] Referral ID Status Reason Start Date Expiration Date Visits Requested Visits Authorized [id number] Pending Review Auto-Genera mary Referral Patient Cleared - Admin/Chair man/Directo r advise to proceed or did not respond 05/10/2024 06/09/2025 4 2 Reason Comments Multiple Health Concerns Reason Comments Lost medications 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 Reason Onset Date Comments [facility] Hepatology - Follow-up 05/31/2024 HCV+ lab test Reason Comments Swelling Reason Comments Swelling abdomen Reason Comments Transfer Report Specialty Diagnoses / Procedures Referred By Contac t Referred To Contact Radiology Diagnoses Ascites Procedures Surgical Case Request: Paracentesis, Ultrasound Guidance [place] ABDOM PARACENTESIS DX/THER W/IMAGING GUIDANCE Minda Gómez MD [address] [place] [address] [place] [address] [employer] [place] [address] Referral ID Status Reason Start Date Expiration Date V isits Requested Visits Authorized [id number] New Request 07/17/2024 07/17/2025 1 1 Reason Comments Abdominal Pain Swelling Specialty Diagnoses / Procedures Referred By Contac t Referred To Contact Radiology Diagnoses Ascites Procedures Surgical Case Request: Paracentesis, Ultrasound Guidance [place] ABDOM PARACENTESIS DX/THER W/IMAGING GUIDANCE Ginger Milton MD [address] [place] [address] [place] [address] [employer] [address] [place] [address] Referral ID Status Reason Start Date Expiration Date V isits Requested Visits Authorized [id number] New Request 07/26/2024 07/26/2025 1 1 Referral ID Status Reason Start Date Expiration Date V isits Requested Visits Authorized [id number] New Request 08/02/2024 08/02/2025 1 1 Specialty Diagnoses / Procedures Referred By Contac t Referred To Contact Radiology Diagnoses Ascites Procedures Surgical Case Request: Paracentesis, Ultrasound Office Visit [place] ABDOM PARACENTESIS DX/THER W/IMAGING GUIDANCE Ginger Milton MD [address] [facility] [address] [place] [address] [employer] [facility] [address] [place] [address] Referral ID Status Reason Start Date Expiration Date V isits Requested Visits Authorized [id number] New Request 08/13/2024 08/13/2025 1 1 Specialty Diagnoses / Procedures Referred By Contac t Referred To Contact Radiology Diagnoses Ascites Procedures Surgical Case Request: Paracentesis, Ultrasound Guidance [place] ABDOM PARACENTESIS DX/THER W/IMAGING GUIDANCE Max Rico MD [address] [place] [address] [facility] [address] [place] [address] Referral ID Status Reason Start Date Expiration Date V isits Requested Visits Authorized [id number] New Request 08/16/2024 08/16/2025 1 1 Referral ID Status Reason Start Date Expiration Date V isits Requested Visits Authorized [id number] New Request 08/16/2024 08/16/2025 1 1 Referral ID Status Reason Start Date Expiration Date V isits Requested Visits Authorized [id number] New Request 09/11/2024 09/11/2025 1 1 Referral ID Status Reason Start Date Expiration Date V isits Requested Visits Authorized [id number] New Request 09/11/2024 09/11/2025 1 1 Referral ID Status Reason Start Date Expiration Date V isits Requested Visits Authorized [id number] New Request 09/20/2024 09/20/2025 1 1 Reason Comments General Illness Referral ID Status Reason Start Date Expiration Date V isits Requested Visits Authorized [id number] New Request 09/20/2024 09/20/2025 1 1 Reason Comments Abdominal Pain Referral ID Status Reason Start Date Expiration Date V isits Requested Visits Authorized [id number] New Request 10/15/2024 10/15/2025 1 1 Referral ID Status Reason Start Date Expiration Date V isits Requested Visits Authorized [id number] New Request 10/19/2024 10/19/2025 1 1 Reason Comments Shortness of Breath Referral ID Status Reason Start Date Expiration Date V isits Requested Visits Authorized [id number] New Request 11/21/2024 11/21/2025 1 1 Referral ID Status Reason Start Date Expiration Date V isits Requested Visits Authorized [id number] New Request 11/29/2024 11/29/2025 1 1 Reason Comments Transfer Report Transfer from [facility] fo r back pain /abd pain Specialty Diagnoses / Procedures Referred By Contac t Referred To Contact Diagnoses Abdominal pain, r/o peritonitis Referral ID Status Reason Start Date Expiration Date Visits Re quested Visits Authorized [id number] 1 1 Specialty Diagnoses / Procedures Referred By Contac t Referred To Contact Radiology Diagnoses Visit for screening mammogram Procedures Mammo Screening (3D) Bilateral Referral, Self [address] [place] [address] [facility] Mammography [facility] [place] [address] Referral ID Status Reason Start Date Expiration Date Visits Re quested Visits Authorized [id number] Closed 08/16/2024 08/16/2025 1 1 Care Teams (unrecognized sec tion and content) Maintenance Supervisor Relationship Specialty Start Date End Date Dacia Acosta MD [address] [place] [address] PCP - General Family Practice 08/24/10 Maintenance Supervisor Relationship Specialty Start Date End Date Dacia Acosta MD [address] [place] [address] PCP - General Family Practice 08/24/10 Maintenance Supervisor Relationship Specialty Start Date End Date Dacia Acosta MD [address] [place] [address] PCP - General Family Practice 08/24/10 Maintenance Supervisor Relationship Specialty Start Date End Date Dacia Acosta MD [address] [place] [address] PCP - General Family Practice 08/24/10 Maintenance Supervisor Relationship Specialty Start Date End Date Dacia Acosta MD [address] [place] [address] PCP - General Family Practice 08/24/10 Maintenance Supervisor Relationship Specialty Start Date End Date Dacia Acosta MD [address] [facility] [place] [address] PCP - General Family Practice 08/24/10 Maintenance Supervisor Relationship Specialty Start Date End Date Dacia Acosta MD [address] [facility] [place] [address] PCP - General Family Practice 08/24/10 Maintenance Supervisor Relationship Specialty Start Date End Date Dacia Acosta MD [address] [facility] [address] PCP - General Family Practice 08/24/10 Maintenance Supervisor Relationship Specialty Start Date End Date Dacia Acosta MD [address] [place] [address], [place] [address] PCP - General Family Practice 08/24/10 Maintenance Supervisor Relationship Specialty Start Date End Date Dacia Acosta MD [address] [facility] [place] [address] PCP - General Family Practice 08/24/10 Maintenance Supervisor Relationship Specialty Start Date End Date Dacia Acosta MD [address] [facility] [place] [address] PCP - General Family Medicine 08/24/10 Maintenance Supervisor Relationship Specialty Start Date End Date Dacia Acosta MD [address] [facility] [address] PCP - General Family Medicine 08/24/10 Maintenance Supervisor Relationship Specialty Start Date End Date Dacia Acosta MD [facility] [place] [address] PCP - General Family Medicine 08/24/10 Maintenance Supervisor Relationship Specialty Start Date End Date Dacia Acosta MD [facility] [place] [address] PCP - General Family Medicine 08/24/10 Maintenance Supervisor Relationship Specialty Start Date End Date Dacia Acosta MD [address], [place] [address] PCP - General Family Medicine 08/24/10 Maintenance Supervisor Relationship Specialty Start Date End Date Dacia Acosta MD [address], [place] [address] PCP - General Family Medicine 08/24/10 Maintenance Supervisor Relationship Specialty Start Date End Date Dacia Acosta MD [address], [place] [id number] PCP - General Family Medicine 08/24/10 Team Status: Active Member Role Status Dates Dr. Dacia Acosta MD Family Provider Active Dr. Dacia Acosta MD Primary Care Provider Active Team Status: Inactive Member Role Status Dates Dr. Dacia Acosta MD Primary Care Provider Active Dr. Shon Quintero MD Emergency Provider Active Team Status: Inactive Member Role Status Dates Dr. Dacia Acosta MD Primary Care Provider Active Dr. Shon Quintero MD Attending Provider, Emergency Provi jason Active Team Status: Active Member Role Status Dates Dr. Dacia Acosta MD Primary Care Provider Active Dr. Darius Rosales DO Emergency Provider Active Dr. Gurinder Mittal MD Admit Provider, Attending Pro vider Active Dr. Marcelina Porras , DO Other Provider Active Team Status: Active Member Role Status Dates Dr. Dacia Acosta MD Primary Care Provider Active Dr. Darius Rosales , DO Emergency Provider Active Dr. Gurinder Mittal MD Admit Provider, Other Provide r Active Dr. Marcelina Porras , DO Other Provider Active Dr. Michi Forbes , DO Other Provider Active Jonathan Denton NP-C Attending Provider Active Team Status: Active Member Role Status Dates Dr. Dacia Acosta MD Primary Care Provider Active Dr. Darius Rosales , Emergency Provider Active Dr. Gurinder Mittal MD Admit Provider, Other Provide r Active Dr. Marcelina Porras , DO Other Provider Active Dr. Michi Forbes DO Attending Provider, Other Provid er Active Team Status: Inactive Member Role Status Dates Dr. Dacia Acosta MD Primary Care Provider Active Dr. Darius Rosales DO Emergency Provider Active Dr. Gurinder Mittal MD Admit Provider, Other Provide r Active Dr. Marcelina Porras , Other Provider Active Dr. Michi Forbes DO Attending Provider Active Maintenance Supervisor Relationship Specialty Start Date End Date Dacia Acosta MD [address] [place] [address] PCP - General Family Medicine 08/24/10 Team Status: Inactive Member Role Status Dates Dr. Dacia Acosta MD Primary Care Provider, Referr ing Provider Active Dr. Son Adams MD Attending Provider Active Team Status: Active Member Role Status Dates Dr. Dacia Acosta MD Primary Care Provider Active Dr. Son Adams MD Referring Provider, Other Provi jason Active Dr. Marcelina Porras , DO Other Provider Active Jonathan Denton , REGULATORY AFFAIRS CONSULTANT-C Attending Provider Active Team Status: Inactive Member Role Status Dates Dr. Dacia Acosta MD Primary Care Provider Active Dr. Son Adams MD Attending Provider, Referring P rovider Active Dr. Marcelina Porras , Other Provider Active Team Status: Active Member Role Status Dates Dr. Dacia Acosta MD Primary Care Provider Active Dr. Darius Rosales DO Emergency Provider Active Team Status: Inactive Member Role Status Dates Dr. Dacia Acosta MD Primary Care Provider Active Dr. Darius Rosales DO Emergency Provider Active Team Status: Inactive Member Role Status Dates Dr. Dacia Acosta MD Primary Care Provider Active Dr. Emperatriz Craig MD Emergency Provider Active Team Status: Inactive Member Role Status Dates Dr. Dacia Acosta MD Primary Care Provider Active Dr. Darius Rosales DO Attending Provider, Emergency Provider Active Team Status: Active Member Role Status Dates Dr. Dacia Acosta MD Primary Care Provider Active Dr. Darius Rosales DO Emergency Provider Active Dr. Elena Hoff MD Admit Provider, Attending Provider, Other Provider Active Team Status: Active Member Role Status Dates Dr. Dacia Acosta MD Primary Care Provider Active Dr. Darius Bobby , DO Emergency Provider Active Dr. Elena Hoff MD Admit Provider, Other Provider Active Dr. Oscar Pantoja MD Attending Provider, Other Provid er Active Team Status: Inactive Member Role Status Dates Dr. Dacia Acosta MD Primary Care Provider Active Dr. Emperatriz Craig MD Attending Provider, Emergency Provider Active Team Status: Inactive Member Role Status Dates Dr. Dacia Acosta MD Primary Care Provider Active Dr. Darius Rosales , DO Emergency Provider Active Dr. Elena Hoff MD Admit Provider, Other Provider Active Dr. Oscar Pantoja MD Attending Provider Active Maintenance Supervisor Relationship Specialty Start Date End Date Dacia Acosta MD [address] [place] [address] PCP - General Family Medicine 08/24/10 Maintenance Supervisor Relationship Specialty Start Date End Date Dacia Acosta MD [address] [place] [address] PCP - General Family Medicine 08/24/10 Team Status: Inactive Member Role Status Dates Dr. Dacia Acosta MD Primary Care Provider Active Dr. Jake Harding MD Emergency Provider Active Maintenance Supervisor Relationship Specialty Start Date End Date Dacia Acosta MD [address] [place] [address] PCP - General Family Medicine 08/24/10 Team Status: Inactive Member Role Status Dates Dr. Dacia Acosta MD Primary Care Provider Active Dr. Yimi Hutchinson , Emergency Provider Active Team Status: Inactive Member Role Status Dates Dr. Dacia Acosta MD Primary Care Provider Active Dr. Timoteo Gardiner MD Emergency Provider Active Maintenance Supervisor Relationship Specialty Start Date End Date Dacia Acosta MD [address] [place] [address] PCP - General Family Medicine 08/24/10 Priscilla Del Angel, NASH [address] [facility] [place] [place] [id number] Primary Care Dust Sampler Internal Medicine 11/24/23 Maintenance Supervisor Relationship Specialty Start Date End Date Dacia Acosta MD [address], [place] [address] PCP - General Family Medicine 08/24/10 Priscilla Del Angel RN [address] [place] [place], [place] [id number] Primary Care Dust Sampler Internal Medicine 11/24/23 Maintenance Supervisor Relationship Specialty Start Date End Date Dacia Acosta MD [address] [place] [address] PCP - General Family Medicine 08/24/10 Priscilla Del Angel RN [address] [place], [place] [id number] Primary Care Dust Sampler Internal Medicine 11/24/23 Maintenance Supervisor Relationship Specialty Start Date End Date Dacia Acosta MD [address], [place] [address] PCP - General Family Medicine 08/24/10 Priscilla Del Angel, RN [address] [place], [place] [id number] Primary Care Dust Sampler Internal Medicine 11/24/23 Team Status: Inactive Member Role Status Dates Dr. Dacia Acosta MD Primary Care Provider Active Dr. Jake Harding MD Attending Provider, Emergency Provider Active Team Status: Inactive Member Role Status Dates Dr. Dacia Acosta MD Primary Care Provider Active Dr. Yimi Hutchinson DO Attending Provider, Emergency P femi Active Team Status: Inactive Member Role Status Dates Dr. Dacia Acosta MD Primary Care Provider Active Dr. Timoteo Gardiner MD Attending Provider, Emergency Pro vider Active Team Status: Active Member Role Status Dates Dr. Dacia Acosta MD Primary Care Provider Active Dr. Emperatriz Craig MD Emergency Provider Active Dr. Sowmya Mirza MD Admit Provider, Attending Prov ider Active Team Status: Active Member Role Status Dates Dr. Dacia Acosta MD Primary Care Provider Active Dr. Emperatriz Craig MD Emergency Provider Active Dr. Sowmya Mirza MD Admit Provider, Other Provider Active Dr. Son Adams MD Other Provider Active Jonathan Denton REGULATORY AFFAIRS CONSULTANT-C Attending Provider Active Team Status: Active Member Role Status Dates Dr. Dacia Acosta MD Primary Care Provider Active Dr. Emperatriz Craig MD Emergency Provider Active Dr. Sowmya Mirza MD Admit Provider, Other Provider Active Dr. Son Adams MD Attending Provider, Other Provi jason Active Team Status: Active Member Role Status Dates Dr. Dacia Acosta MD Primary Care Provider Active Dr. Emperatriz Craig MD Emergency Provider Active Dr. Sowmya Mirza MD Admit Provider, Other Provider Active Dr. Son Adams MD Other Provider Active Dr. Marcelina Porras DO Attending Provider Active Team Status: Active Member Role Status Dates Dr. Dacia Acosta MD Primary Care Provider Active Dr. Emperatriz Craig MD Emergency Provider Active Dr. Sowmya Mirza MD Admit Provider, Other Provider Active Dr. Son Adams MD Attending Provider, Other Provi jason Active Dr. Ricardo Pollack DPM Other Provider Active Team Status: Active Member Role Status Dates Dr. Dacia Acosta MD Primary Care Provider Active Dr. Emperatriz Craig MD Emergency Provider Active Dr. Sowmya Mirza MD Admit Provider, Other Provider Active Dr. Son Adams MD Other Provider Active Dr. Ricardo Pollack DPM Other Provider Active Dr. Marcelina Porras DO Attending Provider Active Team Status: Inactive Member Role Status Dates Dr. Dacia Acosta MD Primary Care Provider Active Dr. Emperatriz Craig MD Emergency Provider Active Dr. Sowmya Mirza MD Admit Provider, Other Provider Active Dr. Son Adams MD Attending Provider Active Dr. Ricardo Pollack DPM Other Provider Active Maintenance Supervisor Relationship Specialty Start Date End Date Dacia Acosta MD [address] [place] [address] PCP - General Family Medicine 08/24/10 Priscilla Del Angel RN [address] [place] [address] Primary Care Dust Sampler Internal Medicine 11/24/23 12/07/23 Maintenance Supervisor Relationship Specialty Start Date End Date Dacia Acosta MD [address], [place] [address] PCP - General Family Medicine 08/24/10 Maintenance Supervisor Relationship Specialty Start Date End Date Dacia Acosta MD [address], [place] [address] PCP - General Family Medicine 08/24/10 Team Status: Active Member Role Status Dates Dr. Dacia Acosta MD Primary Care Provider Active Dr. Emperatriz Craig MD Emergency Provider Active Dr. Sowmya Mirza MD Admit Provider, Other Provider Active Dr. Son Adams MD Referring Provider, Other Provi jason Active Dr. Marcelina Porras DO Attending Provider Active Team Status: Active Member Role Status Dates Dr. Dacia Acosta MD Primary Care Provider Active Dr. Emperatriz Craig MD Emergency Provider Active Dr. Sowmya Mirza MD Admit Provider, Other Provider Active Dr. Son Adams MD Referring Provider, Other Provi jason Active Dr. Ricardo Pollack DPM Other Provider Active Dr. Marcelina Porras DO Attending Provider Active Team Status: Active Member Role Status Dates Dr. Dacia Acosta MD Primary Care Provider, Referr ing Provider Active Dr. Marcelina Porras DO Attending Provider, Other Prov ider Active Team Status: Inactive Member Role Status Dates Dr. Dacia Acosta MD Primary Care Provider, Referr ing Provider Active Dr. Marcelina Porras DO Attending Provider Active Maintenance Supervisor Relationship Specialty Start Date End Date Dacia Acosta MD [address], [place] [address] PCP - General Family Medicine 08/24/10 Maintenance Supervisor Relationship Specialty Start Date End Date Dacia Acosta MD [address], [place] [address]- PCP - General Family Medicine 08/24/10 Maintenance Supervisor Relationship Specialty Start Date End Date Dacia Acosta MD [address] [facility] [place] [address] PCP - General Family Medicine 08/24/10 Maintenance Supervisor Relationship Specialty Start Date End Date Dacia Acosta MD [address] [facility] [address] PCP - General Family Medicine 08/24/10 Maintenance Supervisor Relationship Specialty Start Date End Date Dacia Acosta MD [address] [facility] [address] PCP - General Family Medicine 08/24/10 Maintenance Supervisor Relationship Specialty Start Date End Date Dacia Acosta MD [address] [facility] [place] [address] PCP - General Family Medicine 08/24/10 Maintenance Supervisor Relationship Specialty Start Date End Date Dacia Acosta MD [address] [facility] [address] PCP - General Family Medicine 08/24/10 Maintenance Supervisor Relationship Specialty Start Date End Date Dacia Acosta MD [address] [facility] [address] PCP - General Family Medicine 08/24/10 Maintenance Supervisor Relationship Specialty Start Date End Date Dacia Acosta MD [address] [facility] [address] PCP - General Family Medicine 08/24/10 Maintenance Supervisor Relationship Specialty Start Date End Date Dacia Acosta MD [address] [facility] [address] PCP - General Family Medicine 08/24/10 Maintenance Supervisor Relationship Specialty Start Date End Date Dacia Acosta MD [address] [facility] [address] PCP - General Family Medicine 08/24/10 Maintenance Supervisor Relationship Specialty Start Date End Date Dacia Acosta MD [address] [place] [address] PCP - General Family Medicine 08/24/10 Maintenance Supervisor Relationship Specialty Start Date End Date Dacia Acosta MD [address] [place] [address] PCP - General Family Medicine 08/24/10 Maintenance Supervisor Relationship Specialty Start Date End Date Dacia Acosta MD [address] [facility] [address] PCP - General Family Medicine 08/24/10 Maintenance Supervisor Relationship Specialty Start Date End Date Dacia Acosta MD [address] [place] [address] PCP - General Family Medicine 08/24/10 Maintenance Supervisor Relationship Specialty Start Date End Date Dacia Acosta MD [address] [facility] [address] PCP - General Family Medicine 08/24/10 Maintenance Supervisor Relationship Specialty Start Date End Date Katharina Welsh MD [address], [place] [address] Gastroenterology 07/25/24 Maintenance Supervisor Relationship Specialty Start Date End Date Katharina Welsh MD [address] Medical [place] [address] Gastroenterology 07/25/24 Maintenance Supervisor Relationship Specialty Start Date End Date Katharina Welsh MD [address] Medical [place] [address] Gastroenterology 07/25/24 Maintenance Supervisor Relationship Specialty Start Date End Date Katharina Welsh MD [address] Medical [facility] [place] [address] Gastroenterology 07/25/24 Maintenance Supervisor Relationship Specialty Start Date End Date Katharina Welsh MD [address] Medical [facility] [place] [address] Gastroenterology 07/25/24 Maintenance Supervisor Relationship Specialty Start Date End Date Katharina Welsh MD [address] Medical [place] [address] Gastroenterology 07/25/24 Maintenance Supervisor Relationship Specialty Start Date End Date Katharina Wlesh MD [address] Medical [place] [address] Gastroenterology 07/25/24 Maintenance Supervisor Relationship Specialty Start Date End Date Katharina Welsh MD [address] Medical [place] [address] Gastroenterology 07/25/24 Ashlee Frazier APRN [address] [place] [address] [place] [phone] Gastroenterology 09/20/24 Maintenance Supervisor Relationship Specialty Start Date End Date Katharina Welsh MD [address] [place] [address] [address] [place] [address] Gastroenterology 07/25/24 Ashlee Frazier APRN [address] [place] [place] [address] [place] [phone] Gastroenterology 09/20/24 Maintenance Supervisor Relationship Specialty Start Date End Date Ange Espinoza DO [address] [place] [id number] PCP - General Family Medicine 09/27/24 Katharina Welsh MD [address] [place] [address] [place] [address] Gastroenterology 07/25/24 Ashlee Frazier APRN [address] [place] [address] Gastroenterology 09/20/24 Maintenance Supervisor Relationship Specialty Start Date End Date Ange Espinoza DO [address] [place] [id number] PCP - General Family Medicine 09/27/24 Katharina Welsh MD [address] [place] [address] [place] [address] Gastroenterology 07/25/24 Ashlee Frazier APRN [address] [place] [address] Gastroenterology 09/20/24 Maintenance Supervisor Relationship Specialty Start Date End Date Ange Espinoza DO [address] [place] [id number] PCP - General Family Medicine 09/27/24 Katharina Welsh MD [address] [place] [address] Gastroenterology 07/25/24 Ashlee Frazier APRN [address] [place] [address] Gastroenterology 09/20/24 Maintenance Supervisor Relationship Specialty Start Date End Date Katharina Lopez APRN PCP - General Adult Health 08/15/24 03/25/25 Maintenance Supervisor Relationship Specialty Start Date End Date Ange Espinoza DO [address] [place] [address] PCP - General Family Medicine 09/27/24 Katharina Welsh MD [address] [place] [address] Gastroenterology 07/25/24 Ashlee Frazier APRN [address] [place] [address] Gastroenterology 09/20/24 Maintenance Supervisor Relationship Specialty Start Date End Date Ange Espinoza DO [address] [place] [address] PCP - General Family Medicine 09/27/24 Katharina Welsh MD [address] [place] [address] Gastroenterology 07/25/24 Ashlee Frazier APRN [address] [place] [address] Gastroenterology 09/20/24 Maintenance Supervisor Relationship Specialty Start Date End Date Ange Espinoza DO [address] [place] [address] PCP - General Family Medicine 09/27/24 Katharina Welsh MD [address] [place] [address] Gastroenterology 07/25/24 Ashlee Frazier APRN [address] [place] [address] Gastroenterology 09/20/24 Maintenance Supervisor Relationship Specialty Start Date End Date Ange Espinoza DO [address] [place] [address] PCP - General Family Medicine 09/27/24 Katharina Welsh MD [address] [place] [address] Gastroenterology 07/25/24 Ashlee Frazier APRN [address] [place] [address] Gastroenterology 09/20/24 Maintenance Supervisor Relationship Specialty [place] [address] [place] [address] PCP - General Family Medicine 09/27/24 Katharina Welsh MD [address] [place] [address] Gastroenterology 07/25/24 Ashlee Frazier APRN [address] [place] [address] [place] [phone] Gastroenterology 09/20/24 Maintenance Supervisor Relationship Specialty Start Date End Date Ange Espinoza DO [address] [place] [address] PCP - General Family Medicine 09/27/24 Katharina Welsh MD [address] [place] [address] Gastroenterology 07/25/24 Ashlee Frazier APRN [address] [place] [address] [place] [phone] Gastroenterology 09/20/24 Team Status: Active Member Role Status Dates [facility] Primary Care Provider A ctive Team Status: Inactive Member Role Status Dates [facility] Primary Care Provider A ctive Start: January 23, 2025 End: January 23, 2025 [facility] Referring Provider Acti ve Start: January 23, 2025 End: January 23, 2025 Dr. Son Adams MD Attending Provider Active Start: January 23, 2025 End: January 23, 2025 Team Status: Inactive Member Role Status Dates [facility] Primary Care Provider A ctive Start: February 04, 2025 End: February 04, 2025 Dr. Micih Cope DO Emergency Provider Active Start: February 04, 2025 End: February 04, 2025 Team Status: Active Member Role Status Dates Tresa Sandoval REGULATORY AFFAIRS CONSULTANT-C Primary Care Provider Active Team Status: Inactive Member Role Status Dates [facility] Primary Care Provider A ctive Start: February 04, 2025 End: February 04, 2025 Dr. Michi Cope DO Attending Provider Active Start: February 04, 2025 End: February 04, 2025 Dr. Michi Cope DO Emergency Provider Active Start: February 04, 2025 End: February 04, 2025 Team Status: Active Member Role Status Dates Tresa Sandoval REGULATORY AFFAIRS CONSULTANT-C Primary Care Provider Active Start: February 07, 2025 Tresa Sandoval NP-C Attending Provider Active Start: February 07, 2025 Team Status: Inactive Member Role Status Dates Tresa Sandoval REGULATORY AFFAIRS CONSULTANT-C Primary Care Provider Active Start: February 08, 2025 End: February 08, 2025 Dr. Chris Ramos MD Emergency Provider Active Start: February 08, 2025 End: February 08, 2025 Team Status: Inactive Member Role Status Dates Tresa Sandoval NP-C Primary Care Provider Active Start: February 07, 2025 End: February 07, 2025 Tresa Sandoval NP-C Attending Provider Active Start: February 07, 2025 End: February 07, 2025 Team Status: Inactive Member Role Status Dates Tresa Sandoval NP-C Primary Care Provider Active Start: February 08, 2025 End: February 08, 2025 Dr. Chris Ramos MD Attending Provider Active Start: February 08, 2025 End: February 08, 2025 Dr. Chris Ramos MD Emergency Provider Active Start: February 08, 2025 End: February 08, 2025 Team Status: Inactive Member Role Status Dates Tresa Sandoval REGULATORY AFFAIRS CONSULTANT-C Primary Care Provider Active Start: February 21, 2025 End: February 22, 2025 Dr. Pedriot Rosario DO Emergency Provider Active Start : February 21, 2025 End: February 22, 2025 Goals (unrecognized section and content) Goals may be documented in a n alternate sectionGoals may be documented in an alternate sectionGoals may be documented in an alternate sectionGoals may be documented in an alternate sectionGoals may be documented in an alternate sectionGoals may be documented in an alternate sectionGoals may be documented in an alternate sectionGoals may be documented in an alternate section No data available for this section No data available for this sectionGoals may be documented in an alternate sectionGoals may be documented in an alternate sectionGoals may be documented in an alternate sectionGoals may be documented in an alternate section Scheduled Active and Recently Administ ered Medications (unrecognized section and content) Medication Order 09/13/2023 09/14/2023 09/15/2023 desvenlafaxine (Pristiq) 24 hr tablet 100 mg 100 mg, Oral, Daily, First dose on 09/10/23 at 0900, Do not crush, chew, or split. 0928 (Given - Provider: Kylah Parks RN) 0831 (Given - Provider: Kylah Parks RN) 0945 (Given - Provider: Ricardo Landry RN) doxepin (SINEquan) capsule 10 mg 10 mg, Oral, Nightly, First dose on 09/10/23 at 2100 2050 (Given - Provider: Jt Parsons RN) 2108 (Given - Provider: Haritha Martinez, NASH) gabapentin (Neurontin) capsule 100 mg 100 mg, Oral, 2 times daily, First dose on 09/10/23 at 0900 0928 (Given - Provider: Kylah Parks RN)2048 (Given - Provider: Jt Parsons RN) 0831 (Given - Provider: Kylah Parks RN)2003 (Given [...] RN) 0839 (Given - Provider: Kylah Parks RN)144 (Given - Provider: Kylah Parks RN)2003 (Given - Provider: Haritha Martinez RN) 0945 (Given - Provider: Ricardo Landry RN)1332 (Given - Provider: Ricardo Landry RN) lactulose (Chronulac) 200 g in sterile water 1,000 mL enema(Linked Group 1) 1 enema, Rectal, 3 times daily, First dose on Tue09/10/23 at 0900, Mix 200GM (300mL) of lactulose with 700mL of sterile water for total volume of 1000mL - If Pt NPO or unable to tolerate PO intake 0928 (See Alternative - Provider: Kylah Parks RN)1338 (See Alternative - Provider: Kylah Parks RN)204 (See Alternative - Provider: Jt Parsons RN) 0839 (See Alternative - Provider: Kylah Parks RN)1443 (See Alternative - Provider: Kylah Parks RN)2003 (See Alternative - Provider: Haritha Martinez RN) 0945 (See Alternative - Provider: Ricardo Landry RN)1332 (See Alternative - Provider: Ricardo Landry RN) hnsuahbx-pmsqtpidzb-yf lymyxin (Neosporin) ointment (COMPLETED) Topical, Once, On Tue09/13/23 at 0345, For 1 dose, Apply to 0539 (Given - Provider: Jt Parsons RN) lopkrcgj-aiuulwwxcj-sw lymyxin (Neosporin) ointment Topical, 3 times daily, [...] IV access) 0608 (Given - Provider: Jt Parsons, RN) 06 (Given - Provider: Haritha Martinez, [...] at 1400 0928 (Given - Provider: Kylah Parks, RN)2048 (Given - Provider: Jt Parsons RN) 0831 (Given - Provider: Kylah Parks, RN)2003 (Given - Provider: Haritha Martinez, RN) 0945 (Given - Provider: Ricardo Landry, NASH) traZODone (Desyrel) tablet 100 mg 100 mg, Oral, Nightly, First dose on 09/10/23 at 2100 2048 (Given - Provider: Jt Parsons, NASH) 2003 (Given - Provider: Haritha Martinez, NASH) [...] 0547 2117 (Given - Provider: Haritha Martinez, RN) morphine injection 2 mg 2 mg, [...] sedation for opioid reversal - MUST notify chief librarian extension department provider immediately after first dose, may give [...] Parsons RN)1231 (Given - Provider: Kylah Parks RN)1953 (Given - Provider: Haritha Martinez, NASH) 0156 (Given - Provider: Haritha Martinez RN) [...] 0404 (See Alternative - Provider: Jt Parsons RN)1231 (See Alternative - Provider: Kylah Parks RN)195 (See Alternative - Provider: Haritha Martinez RN) 0156 (See Alternative - Provider: Haritha Martinez RN) sodium chloride ([place]) 0.65 % nasal spray 2 spray 2 [...] contact provider if no further options ordered. PRN Medication Order 06/30/2024 07/01/2024 07/02/2024 albumin human 25 % vial (COMPLETED) ONE TIME ONLY PRN, 1 dose, Starting on 07/02/24 at 1401, Until Tue07/02/24 at 1401, Routine, Per P&T committee approval, Albumin orders will have a max duration of 1 day., Intra-Procedure 1401 (Given - Provid er: Lianet Rodas RN) lidocaine (preservative free) 20 mg/mL (2 %) injection (COMPLETED) ONE TIME ONLY PRN, 1 dose, Starting on Tue07/02/24 at 1318, Until Tue07/02/24 at 1318, Routine 1318 (Given - Provid er: Max Rico MD) Scheduled Medication Order 07/03/2024 07/04/2024 07/05/2024 ibuprofen (MOTRIN) tab 600 mg 600 mg, Oral, ONE TIME ONLY, 1 dose, On Kiersten 07/05/24 at 1203, STAT 1203 (Refused - Prov ider: Jakob Babcock RN) Scheduled Medication Order 07/08/2024 07/09/2024 07/10/2024 -ORDER CLARIFY- 1 Each Pristiq IS A NON-FORMULARY MEDICINE. THE PHYSICIAN HAS INDICATED THAT THE PATIENT MAY USE THEIR HOME SUPPLY OF THIS MEDICATION. PLEASE BRING MED TO PHARMACY FOR VERIFICATION AND LABEL. THANK YOU. , PLEASE ENTER CLARIFY DETAILS IN ADMINISTRATION INSTRUCTIONS BOX 2[address] (Canceled Entry - Provider: Auto Xfer/Discharge Rx - Comment: Automatically canceled at discontinue of medication order) busPIRone (BUSPAR) tab 10 mg 10 mg, Oral, THREE TIMES A DAY, First dose on Tue07/09/24 at 2115, Until Discontinued, Routine 2154 (Given - Provider: Rachel Ronquillo RN) 0935 (Given - Provider: Clifford Archuleta RN)1500 (Canceled Entry - Provider: Auto Xfer/Discharge Rx - Comment: Automatically canceled at discontinue of medication order) cefTRIAXone (ROCEPHIN) injection 1 g 1 g, Intravenous, EVERY 24 HOURS, 7 doses, First dose on Tue07/09/24 at 0900, Last dose on Tue07/15/24 at 0900, Routine, IV Push: Dilute with 9.6 mL from NS flush. Total volume = 10mL. Administer slowly over 2-4 minutes. 1030 (Given - Provider: Kraig Fernando LPN - Comment: JUst received from pharmacy.Out in psychiatric.) 0935 (Given - Provider: Clifford Archuleta, NASH) ferrous sulfate DR tab 325 mg 325 mg, Oral, DAILY, First dose on Tue07/10/24 at 0900, Until Discontinued, Routine 0935 (Given - Provider: Clifford Archuleta, NASH) fluticasone propionate (FLONASE) nasal spray 1 Prather 1 Prather, Each Nostril, DAILY, First dose on Tue07/10/24 at 0900, Until Discontinued, Routine, EACH NOSTRIL 0900 (Refused - Provider: Clifford Archuleta RN) hydroCHLOROthiazide tab 50 mg 50 mg, Oral, TWICE A DAY (DIURETIC), First dose on Tue07/09/24 at 2130, Until Discontinued, Routine 2155 (Refused - Provider: Rachel Ronquillo RN - Comment: does not want the side effects) 0936 (Given - Provider: Clifford Archuleta, NAHS)1800 (Canceled Entry - Provider: Auto Xfer/Discharge Rx - Comment: Automatically canceled at discontinue of medication order) hydrOXYzine pamoate (VISTARIL) cap 25 mg (COMPLETED) 25 mg, Oral, ONE TIME ONLY, 1 dose, On Tue07/09/24 at 0300, Routine 0302 (Given - Provider: Yumiko Rivas RN) lactulose (CHRONULAC) 20 gram/30 mL soln 10 g 10 g, Oral, THREE TIMES A DAY, First dose on Tue07/09/24 at 2115, Until Discontinued 2200 (Refused - Provider: Rachel Ronquillo RN - Comment: says will take this one in the morning.) 0935 (Given - Provider: Clifford Archuleta RN)1500 (Canceled Entry - Provider: Auto Xfer/Discharge Rx - Comment: Automatically canceled at discontinue of medication order) lurasidone (LATUDA) tab 20 mg 20 mg, Oral, DAILY, First dose on Tue07/10/24 at 0900, Until Discontinued, Routine 0935 (Given - Provider: Clifford Archuleta, NASH) melatonin tab 6 mg 6 mg, Oral, AT BEDTIME, First dose on Tue07/10/24 at 0130, Until Discontinued, Routine 0123 (Given - Provider: Nita Anne RN) morphine injection 4 mg (COMPLETED) 4 mg, Intravenous, ONE TIME ONLY, 1 dose, On Tue07/08/24 at 1909, STAT 1922 (Given - Provider: Scot Pillai RN) ondansetron hcl (PF) (ZOFRAN) injection 4 mg (COMPLETED) 4 mg, Intravenous, ONE TIME ONLY, 1 dose, On Tue07/08/24 at 1909, Administer over 2 Minutes, STAT 1923 (Given - Provider: Scot Pillai, NASH) pantoprazole (PROTONIX) DR tab 40 mg 40 mg, Oral, DAILY, First dose on Tue07/10/24 at 0900, Until Discontinued, Routine, Do not crush, open, or split 0936 (Given - Provider: Clifford Archuleta, NASH) spironolactone (ALDACTONE) tab 50 mg 50 mg, Oral, TWICE A DAY (DIURETIC), First dose on Tue07/09/24 at 2130, Until Discontinued, Routine 2155 (Refused - Provider: Rachel Ronquillo RN - Comment: says she does not want the side effects) 0935 (Given - Provider: Clifford Archuleta RN)1800 (Canceled Entry - Provider: Auto Xfer/Discharge Rx - Comment: Automatically canceled at discontinue of medication order) topiramate (TOPAMAX) tab 25 mg 25 mg, Oral, DAILY, First dose on Tue07/10/24 at 0900, Until Discontinued, Routine, TOPAMAX LOOK ALIKE/SOUND ALIKE WARNING. 0935 (Given - Provider: Clifford Archuleta RN) PRN Medication Order 07/08/2024 07/09/2024 07/10/2024 albumin human 25 % vial (COMPLETED) ONE TIME ONLY PRN, 1 dose, Starting on Tue07/09/24 at 0903, Until Tue07/09/24 at 0909, Routine, Per P&T committee approval, Albumin orders will have a max duration of 1 day., Intra-Procedure 908 (Given - Provider: Diya Ontiveros RN) gabapentin (NEURONTIN) cap 100 mg 100 mg, Oral, THREE TIMES A DAY PRN, Starting on Tue07/08/24 at 1956, Until Tue07/10/24 at 1851, Neuropathic pain, Pain scale 1-3 (try PO med first if multiple routes ordered for same pain rating), Pain - see PRN comments, Or for nonverbal patients try least potent medication first., STAT, (WASTE: VIRIDIANA) 0815 (MAR Hold - Provider: Auto Hold - Reason: Other)914 (NOV Unhold - Provider: Auto Hold)2053 (Given - Provider: Rachel Ronquillo, NASH) ibuprofen (MOTRIN) tab 400 mg 400 mg, Oral, EVERY 4 HOURS PRN, Starting on 07/08/24 at 1955, Until Tue07/10/24 at 1851, Pain scale 1-3 (try PO med first if multiple routes ordered for same pain rating), Pain - see PRN comments, Or for nonverbal patients try least potent medication first., STAT, - If ordered along with Tylenol for pain 1-3 on scale 1-10, try tylenol first. - If Ibuprofen INEFFECTIVE ALONE and tylenol is ordered, give BOTH ibuprofen and Tylenol. Maximum dose of Ibuprofen is 3.2 grams/day. 814 (NOV Hold - Provider: Auto Hold - Reason: Other)914 ([facility] Unhold - Provider: Auto Hold) lidocaine (preservative free) 10 mg/mL (1 %) injection (COMPLETED) ONE TIME ONLY PRN, 1 dose, Starting on 07/09/24 at 0833, Until Tue07/09/24 at 0833, Routine 0833 (Given - Provider: Ginger Milton MD) morphine injection 3 mg 3 mg, Intravenous, EVERY 6 HOURS PRN, Starting on Tue07/08/24 at 1957, Until Tue07/10/24 at 1851, Pain scale 7-10 (try PO med first if multiple routes ordered for same pain rating), STAT 0118 (Given - Provider: Mohit Barnes RN)0711 (Given - Provider: Yumiko Rivas RN)0815 ([facility] Hold - Provider: Auto Hold - Reason: Other)0915 ([facility] Unhold - Provider: Auto Hold)1352 (Given - Provider: Kraig Fernando LPN)2202 (Given - Provider: Rachel Ronquillo, NASH) 1046 (Given - Provider: Clifford Archuleta RN) ondansetron hcl (PF) (ZOFRAN) injection 4 mg 4 mg, Intravenous, EVERY 6 HOURS PRN, Starting on 07/08/24 at 1954, Until Tue07/10/24 at 1851, Administer over 2 Minutes, STAT, Nausea, Vomiting 0118 (Given - Provider: Mohit Barnes RN)0711 (Given - Provider: Yumiko Rivas RN)0815 (MAR Hold - Provider: Auto Hold - Reason: Other)0915 (MAR Unhold - Provider: Auto Hold) PRN Medication Order 07/17/2024 07/18/2024 07/19/2024 albumin human 25 % vial (COMPLETED) ONE TIME ONLY PRN, 1 dose, Starting on Kiersten 07/19/24 at 1704, Until Kiersten 07/19/24 at 1704, Routine, Per P&T committee approval, Albumin orders will have a max duration of 1 day., Intra-Procedure 1703 (Given - Provid er: Mike Evens) albumin human 25 % vial (COMPLETED) ONE TIME ONLY PRN, 1 dose, Starting on Kiersten 07/19/24 at 1708, Until Kiersten 07/19/24 at 1708, Routine, Per P&T committee approval, Albumin orders will have a max duration of 1 day., Intra-Procedure 1707 (Given - Provid er: Mike Evens) lidocaine (preservative free) 20 mg/mL (2 %) injection (COMPLETED) ONE TIME ONLY PRN, 1 dose, Starting on Kiersten 07/19/24 at 1616, Until Kiersten 07/19/24 at 1616, Routine 1616 (Given - Provid er: Minda Gómez MD - Comment: right side abd) PRN Medication Order 07/24/2024 07/25/2024 07/26/2024 albumin human 25 % vial (COMPLETED) ONE TIME ONLY PRN, 1 dose, Starting on Kiersten 07/26/24 at 1637, Until Kiersten 07/26/24 at 1637, Routine, Per P&T committee approval, Albumin orders will have a max duration of 1 day., Intra-Procedure 1636 (Given - Provid er: Valentine Marley RN) albumin human 25 % vial (COMPLETED) ONE TIME ONLY PRN, 1 dose, Starting on Kiersten 07/26/24 at 1647, Until Kiersten 07/26/24 at 1647, Routine, Per P&T committee approval, Albumin orders will have a max duration of 1 day., Intra-Procedure 1646 (Given - Provid er: Valentine Marley RN) lidocaine (preservative free) 20 mg/mL (2 %) injection (COMPLETED) ONE TIME ONLY PRN, 1 dose, Starting on Kiersten 07/26/24 at 1625, Until Kiersten 07/26/24 at 1625, Routine 1625 (Given - Provid er: Max Rico MD) PRN Medication Order 07/31/2024 08/01/2024 08/02/2024 albumin human 25 % vial (COMPLETED) ONE TIME ONLY PRN, 1 dose, Starting on Kiersten 08/02/24 at 1542, Until Kiersten 08/02/24 at 1542, Routine, Per P&T committee approval, Albumin orders will have a max duration of 1 day., Intra-Procedure 1542 (Given - Provid er: Mike Horner) lidocaine (preservative free) 20 mg/mL (2 %) injection (COMPLETED) ONE TIME ONLY PRN, 1 dose, Starting on Kiersten 08/02/24 at 1506, Until Kiersten 08/02/24 at 1506, Routine 1506 (Given - Provid er: Ginger Milton MD) PRN Medication Order 08/07/2024 08/08/2024 08/09/2024 lidocaine (preservative free) 20 mg/mL (2 %) injection (COMPLETED) ONE TIME ONLY PRN, 1 dose, Starting on Kiersten 08/09/24 at 1400, Until Kiersten 08/09/24 at 1400, Routine 1400 (Given - Provid er: Minda Gómez MD) PRN Medication Order 08/14/2024 08/15/2024 08/16/2024 lidocaine (preservative free) 20 mg/mL (2 %) injection (COMPLETED) ONE TIME ONLY PRN, 1 dose, Starting on Kiersten 08/16/24 at 1340, Until Kiersten 08/16/24 at 1340, Routine 1340 (Given - Provid er: Ginger Milton MD) No Frequency Medication Order 08/14/2024 08/15/2024 08/16/2024 ALBUMIN, HUMAN 25 % INTRAVENOUS SOLUTION (Pyxis override) 1 dose, Starting on Kiersten 08/16/24 at 1249, Until Tue08/17/24 at 0059, Symone Victoria: cabinet override, Per P&T committee approval, Albumin orders will have a max duration of 1 day., Symone Victoria: cabinet override 1300 (Due) LIDOCAINE (PF) 20 MG/ML (2 %) INJECTION SOLUTION (Pyxis override) 1 dose, Starting on Kiersten 08/16/24 at 1249, Until Tue08/17/24 at 0059, Symone Victoria: cabinet override, Symone Victoria: cabinet override 1300 (Due) PRN Medication Order 08/20/2024 08/21/2024 08/22/2024 lidocaine (preservative free) 10 mg/mL (1 %) injection (COMPLETED) ONE TIME ONLY PRN, 1 dose, Starting on Tue08/22/24 at 1254, Until Tue08/22/24 at 1254, Routine 1254 (Given - Provid er: Max Rcio MD) PRN Medication Order 08/28/2024 08/29/2024 08/30/2024 lidocaine (preservative free) 20 mg/mL (2 %) injection (COMPLETED) ONE TIME ONLY PRN, 1 dose, Starting on Kiersten 08/30/24 at 1352, Until Kiersten 08/30/24 at 1352, Routine 1352 (Given - Provid er: Minda Gómez) PRN Medication Order 09/11/2024 09/12/2024 09/13/2024 lidocaine (preservative free) 10 mg/mL (1 %) injection (COMPLETED) ONE TIME ONLY PRN, 1 dose, Starting on Kiersten 09/13/24 at 1423, Until Kiersten 09/13/24 at 1423, Routine 1423 (Given - Provid er: Max Rico MD) No Frequency Medication Order 09/11/2024 09/12/2024 09/13/2024 LIDOCAINE (PF) 20 MG/ML (2 %) INJECTION SOLUTION (Pyxis override) 1 dose, Starting on Kiersten 09/13/24 at 1357, Until Tue09/14/24 at 0214, Rachelldecember: cabinet override, December: cabinet override 1415 (Due) PRN Medication Order 09/18/2024 09/19/2024 09/20/2024 lidocaine (preservative free) 20 mg/mL (2 %) injection (COMPLETED) ONE TIME ONLY PRN, 1 dose, Starting on Kiersten 09/20/24 at 1021, Until Kiersten 09/20/24 at 1021, Routine 1021 (Given - Provid er: Minda Gómez MD) PRN Medication Order 09/25/2024 09/26/2024 09/27/2024 lidocaine (preservative free) 10 mg/mL (1 %) injection (COMPLETED) ONE TIME ONLY PRN, 1 dose, Starting on Tue09/27/24 at 1007, Until Tue09/27/24 at 1007, Routine 1007 (Given - Provid er: Ginger Milton MD) PRN Medication Order 10/01/2024 10/02/2024 10/03/2024 lidocaine (preservative free) 10 mg/mL (1 %) injection (COMPLETED) ONE TIME ONLY PRN, 1 dose, Starting on Tue10/03/24 at 0958, Until Tue10/03/24 at 0958, Routine 0958 (Given - Provid er: Max Rico MD) No Frequency Medication Order 10/01/2024 10/02/2024 10/03/2024 LIDOCAINE (PF) 20 MG/ML (2 %) INJECTION SOLUTION (Pyxis override) 1 dose, Starting on Tue10/03/24 at 0920, Until Tue10/03/24 at 2144, Symone Victoria: cabinet override, Symone Victoria: cabinet override 0945 (Due) Scheduled Medication Order 10/02/2024 10/03/2024 10/04/2024 ibuprofen (MOTRIN) tab 600 mg (COMPLETED) 600 mg, Oral, ONE TIME ONLY, 1 dose, On Tue10/04/24 at 0817, STAT 0822 (Given - Provid er: Hi Lara RN) PRN Medication Order 10/16/2024 10/17/2024 10/18/2024 lidocaine (preservative free) 20 mg/mL (2 %) injection (COMPLETED) ONE TIME ONLY PRN, 1 dose, Starting on Tue10/18/24 at 1349, Until Tue10/18/24 at 1349, Routine 1349 (Given - Provid er: Ginger Milton MD) Scheduled Medication Order 11/18/2024 11/19/2024 11/20/2024 ipratropium-albuteroL (DUO-NEB) 0.5 mg-3 mg(2.5 mg base)/3 mL neb soln 3 mL 3 mL, Inhalation, ONE TIME ONLY, 1 dose, On Tue11/19/24 at 1436, STAT 1436 (Canceled Entry - Provider: Auto Xfer/Discharge Rx - Comment: Automatically canceled at discontinue of medication order) methylprednisolone sod suc(PF) (Solu-MEDROL) injection 125 mg 125 mg, Intramuscular, ONE TIME ONLY, 1 dose, On Tue11/19/24 at 1436, STAT, ==Note: This orderable is for IV administration only. If you wish to order Solu-medrol for IM use, please click on the Facility preference list tab and select the appropriate vial.== 1436 (Canceled Entry - Provider: Auto Xfer/Discharge Rx - Comment: Automatically canceled at discontinue of medication order) PRN Medication Order 11/26/2024 11/27/2024 11/28/2024 lidocaine (preservative free) 20 mg/mL (2 %) injection (COMPLETED) ONE TIME ONLY PRN, 1 dose, Starting on Tue11/28/24 at 0958, Until Tue11/28/24 at 0958, Routine 0958 (Given - Provid er: Minda Gómez MD) PRN Medication Order 12/04/2024 12/05/2024 12/06/2024 lidocaine (preservative free) 20 mg/mL (2 %) injection (COMPLETED) ONE TIME ONLY PRN, 1 dose, Starting on Kiersten 12/06/24 at 1000, Until Kiersten 12/06/24 at 1001, Routine 1001 (Given - Provid er: Max Rico MD) Scheduled Medication Order 12/11/2024 12/12/2024 12/13/2024 busPIRone (BUSPAR) tab 10 mg 10 mg, Oral, THREE TIMES A DAY, First dose on Tue12/10/24 at 0900, Until Discontinued, STAT 0933 (Given - Provider: Chilo Henry LPN)1500 (Refused - Provider: Chilo Henry LPN)2023 (Given - Provider: Valentine Nieves LPN) 1221 (Given - Provider: Yumiko Gardiner LPN)1734 (Given - Provider: Yumiko Gardiner LPN)2150 (Given - Provider: Liudmila William LPN) 0948 (Given - Provider: Yumiko Gardiner LPN)1500 (Canceled Entry - Provider: Auto Xfer/Discharge Rx - Comment: Automatically canceled at discontinue of medication order)2100 (Due) cefTRIAXone (ROCEPHIN) 2 g in NS (sodium chloride 0.9%) 100 mL (MINI-BAG) 2 g, Intravenous, EVERY 24 HOURS, 5 doses, First dose on Tue12/10/24 at 0336, Last dose on Tue12/14/24 at 0336, Administer over 30 Minutes, STAT 0426 (Given - Provider: Valentine Nieves LPN) 0359 (Given - Provider: Valentine Nieves LPN) 0307 (New Bag - Provider: Liudmila William LPN) FLUoxetine (PROzac) cap 20 mg 20 mg, Oral, DAILY, First dose on Tue12/10/24 at 0900, Until Discontinued, STAT 0933 (Given - Provider: Chilo Henry LPN) 1221 (Given - Provider: Yumiko Gardiner LPN) 0948 (Given - Provider: Yumiko Gardiner LPN) furosemide (LASIX) tab 40 mg 40 mg, Oral, DAILY, First dose on Tue12/10/24 at 0900, Until Discontinued, STAT 0933 (Given - Provider: Chilo Henry LPN) 1222 (Given - Provider: Yumiko Gardiner LPN) 0948 (Given - Provider: Yumiko Gardiner LPN) gabapentin (NEURONTIN) cap 300 mg 300 mg, Oral, TWICE A DAY, First dose on Tue12/11/24 at 1230, Until Discontinued, Routine, (WASTE: VIRIDIANA) 1325 (Given - Provider: Dilshad Manriquez RN)2023 (Given - Provider: Valentine Nieves LPN) 122 (Given - Provider: Yumiko Gardiner LPN)2150 (Given - Provider: Liudmila William LPN) 0948 (Given - Provider: Yumiko Gardiner LPN)2100 (Due) gadobenate dimeglumine (MULTIHANCE) injection 20 mL (COMPLETED) 20 mL, Intravenous, Once in imaging, 1 dose, Starting on Tue12/12/24 at 1131, Until Tue12/12/24 at 1131, Routine 1131 (Given - Provider: Crystal Ziegler) Lactobacillus rhamnosus GG (CULTURELLJosé) 15 billion cell sprinke cap 1 Capsule 1 Capsule, Oral, TWICE A DAY, First dose on Tue12/10/24 at 0900, Until Discontinued, STAT 0933 (Given - Provider: Chilo Henry LPN)2023 (Given - Provider: Valentine Nieves LPN) 1221 (Given - Provider: Yumiko Gardiner LPN)215 (Given - Provider: Liudmila William LPN) 0948 (Given - Provider: Yumiko Gardiner LPN)2100 (Due) lactulose (CHRONULAC) 20 gram/30 mL soln 30 g 30 g, Oral, THREE TIMES A DAY, First dose on Tue12/10/24 at 0900, Until Discontinued, STAT 0933 (Given - Provider: Chilo Henry LPN)1500 (Refused - Provider: Chilo Henry LPN)2023 (Given - Provider: Valentine Nieves LPN) 0900 (Held - Provider: Yumiko Gardiner LPN - Reason: NPO)1735 (Given - Provider: Yumiko Gardiner LPN)215 (Given - Provider: Liudmila William LPN) 0948 (Given - Provider: Yumiko Gardiner LPN)1500 (Refused - Provider: Yumiko Gardiner LPN)2100 (Due) nicotine (NICODERM CQ) 21 mg/24 hr patch 1 Patch 1 Patch, Transdermal, DAILY, First dose on Tue12/12/24 at 1830, Until Discontinued, Administer over 1 Days, Routine, (WASTE: PBKC) 1829 (Patch Applied - Provider: Yumiko Gardiner LPN) 0859 (Patch removed - Provider: Yumiko Gardiner LPN)0947 (Patch Applied - Provider: Yumiko Gardiner LPN) pantoprazole (PROTONIX) DR tab 40 mg 40 mg, Oral, DAILY, First dose on Tue12/10/24 at 0900, Until Discontinued, STAT, Do not crush, open, or split 0933 (Given - Provider: Chilo Henry LPN) 1222 (Given - Provider: Yumiko Gardiner LPN) 0948 (Given - Provider: Yumiko Gardiner LPN) rifAXIMin (XIFAXAN) tab 550 mg 550 mg, Oral, TWICE A DAY, First dose on Tue12/10/24 at 0900, Until Discontinued, STAT, Indication of use: hepatic encepalopathy 0933 (Given - Provider: Chilo Henry LPN)2023 (Given - Provider: Valentine Nieves LPN) 122 (Given - Provider: Yumiko Gardiner LPN)2150 (Given - Provider: Liudmila William LPN) 0948 (Given - Provider: Yumiko Gardiner LPN)2100 (Due) sodium chloride flush 0.9 % syringe 10 mL 10 mL, Intravenous, EVERY 8 HOURS, First dose on Tue12/10/24 at 0600, Until Discontinued, STAT 0600 (Canceled Entry - Provider: Valentine Nieves LPN)1400 (Canceled Entry - Provider: Chilo Henry LPN)2200 (Canceled Entry - Provider: Valentine Nieves LPN) 0600 (Canceled Entry - Provider: Valentine Nieves LPN)1400 (Canceled Entry - Provider: Yumiko Gardiner LPN)2200 (Canceled Entry - Provider: Liudmila William LPN) 0600 (Canceled Entry - Provider: Liudmila William LPN)1400 (Canceled Entry - Provider: Yumiko Gardiner LPN)2200 (Due) spironolactone (ALDACTONE) tab 100 mg 100 mg, Oral, DAILY, First dose on Tue12/10/24 at 0900, Until Discontinued, STAT 0933 (Given - Provider: Chilo Henry LPN) 1221 (Given - Provider: Yumiko Gardiner LPN) 0948 (Given - Provider: Yumiko Gardiner LPN) PRN Medication Order 12/11/2024 12/12/2024 12/13/2024 acetaminophen (TYLENOL) tab 500 mg 500 mg, Oral, EVERY 4 HOURS PRN, Starting on Tue12/10/24 at 0342, Until Tue12/13/24 at 2058, Pain - see PRN comments, Headache, STAT acetaminophen (TYLENOL) tab 650 mg 650 mg, Oral, EVERY 6 HOURS PRN, Starting on Tue12/10/24 at 0342, Until Tue12/13/24 at 2058, Fever, temp greater than or equal to 100.5F, STAT calcium gluconate in NaCl (ISO-OS) 100mL piggyback (PREMIX) 2 g 2 g, Intravenous, DIRECTED PRN, Starting on Tue12/10/24 at 034, Until Tue12/13/24 at 2058, Administer over 60 Minutes, STAT, For Calcium less than 7., Other, For Calcium less than 7. ipratropium-albuteroL (DUO-NEB) 0.5 mg-3 mg(2.5 mg base)/3 mL neb soln 3 mL 3 mL, Inhalation, EVERY 6 HOURS PRN, Starting on Tue12/10/24 at 034, Until Tue12/13/24 at 2058, Wheezing, shortness of breath, STAT magnesium sulfate in water (2g/50mL premix) piggyback (PREMIX) 2 g 2 g, Intravenous, DIRECTED PRN, Starting on Tue12/10/24 at 034, Until Tue12/13/24 at 2058, Administer over 8 Hours, STAT, For Magnesium less than or equal to 1.7., Other, For Magnesium less than or equal to 1.7. methocarbamoL (ROBAXIN) tab 500 mg 500 mg, Oral, TWICE A DAY PRN, Starting on Tue12/11/24 at 1225, Until Tue12/13/24 at 2058, Muscle spasms, Routine 1325 (Given - Provider: Dilshad Manriquez RN) potassium chloride SA (KLOR-CON M20) tab 20 mEq 20 mEq, Oral, DIRECTED PRN, Starting on Tue12/10/24 at 034, Until Tue12/13/24 at 2058, Other, For Potassium less than or equal to 3.4., STAT, DO NOT CRUSH DO NOT CRUSH, For Potassium less than or equal to 3.4. sodium chloride flush 0.9 % syringe 10 mL 10 mL, Intravenous, PRN, Starting on 12/10/24 at 0342, Until Kiersten 12/13/24 at 2058, before and after IV push and IV piggyback medications, STAT traMADoL (ULTRAM) tab 50 mg 50 mg, Oral, EVERY 12 HOURS PRN, Starting on Tu12/11/24 at 1225, Until Kiersten 12/13/24 at 2058, Pain scale 7-10 (try PO med first if multiple routes ordered for same pain rating), Routine, (WASTE: VIRIDIANA) 1325 (Given - Provider: Dilshad Manriquez RN) 0131 (Given - Provider: Liudmila William LPN) traZODone (DESYREL) tab 50 mg 50 mg, Oral, AT BEDTIME PRN, Starting on Tue12/10/24 at 0341, Until Tue12/13/24 at 2058, Sleep, STAT 2150 (Given - Provider: Liudmila William LPN) FOR RECORDS PERTAINING TO PATIENTS WHO ARE [...] BE BASED ON THE PRIMARY CLINICAL RECORDS. [employer] [facility]. provides no warranty or guarantee of the accuracy or completeness of information in this document.
== END | disposition home or self-care (01) ==
LOC: VSLAB 14:06
PROVIDERS: PCP Nurse Practitioner Family; Visit Provider Nurse Practitioner Family
DX: G47.00 Insomnia, unspecified (principal); R53.83 Other fatigue
CPT/HCPCS: 36415; 80053; 82140; 84443; 85025

== ENCOUNTER → 2025-03-07 | Outpatient (CLI) | payer MEDICAID, SELFPAY ==
--- NOTE | 2025-03-07 08:12 | US_ITS ---
PROCEDURE: ABDOMEN LIMITED 03/07/2025 REASON FOR EXAM: Ascites survey. TECHNIQUE: Complete abdominal ultrasound oreilly-scale images with color doppler. PATIENT PREPARATION: Per protocol COMPARISON: None FINDINGS: The 4 quadrants were assessed for possible ascites. Small amount of ascites is seen in the right upper quadrant. Not enough fluid for safe paracentesis. US/Abdomen Limited IMPRESSION: Not enough ascitic fluid for safe paracentesis. Reading Location: [facility]
[2025-03-07 09:54] LABS: Ammonia 56.1 umol/L (11-51)
[2025-03-07 10:08] LABS: Absolute Neutrophil Count 5.6 X10^3/uL (2.0-7.7); Basophil# 0.07 X10^3/uL; Basophil% 0.9 % (0-1); Eosinophil# 0.28 X10^3/uL; Eosinophils% 3.5 % (0-5); Hematocrit 38.8 % (37-47); Hemoglobin 13.1 g/dL (12.0-15.0); Lymphocyte % 16.1 % (19-41); Mean Corp Hgb Conc 33.8 g/dL (32-36); Mean Corpuscular Hgb 31.5 pg (27.0-32.0); Mean Corpuscular Volume 93.3 fL (81-99); Mean Platelet Vol. 11.5 fl (6.2-12.0); Monocyte# 0.73 X10^3/uL; Monocyte% 9.1 % (0-10); NRBC Flagged by Analyzer 0.2 % (0-5); Neutrophil # 5.64 X10^3/uL (2.7-7.7); Neutrophil % 69.9 % (47-70); POSITIVE COUNT YES; Platelet Count 62 K/mm3 (150-450); RBC Distribution Width CV 16.4 % (11.6-14.6); RBC Distribution Width SD 55.8 fl (35.1-43.9); Red Blood Count 4.16 M/mm3 (4.2-5.4); White Blood Count 8.1 K/mm3 (4.4-11.0)
[2025-03-07 10:17] LABS: International Normalized Ratio 1.5; Partial Thromboplast Time 39.2 Seconds (24.1-36.2); Prothrombin Time (Protime)PT. 18.8 SECONDS (11.7-14.9)
[2025-03-07 10:44] LABS: Hemoglobin A1c 4.5 % (<=5.6)
[2025-03-07 10:53] LABS: Hepatitis B Surface Antibody Nonreactive
[2025-03-07 10:59] LABS: ALB/GLOB Ratio 0.8 RATIO (0.9-2.4); AST(SGOT) 73 U/L (<=31); Alanine Aminotransfer ALT/SGPT 38 U/L (<=34); Albumin, Serum 3.5 g/dL (3.5-5.0); Alkaline Phosphatase 198 U/L (35-104); Anion Gap 10 (5-15); BUN 10 mg/dL (4-19); BUN/Creat Ratio 9.4 RATIO (10-20); Bilirubin, Direct 1.23 mg/dL (0.00-0.30); Calcium,Total 9.1 mg/dL (7.6-11.0); Carbon Dioxide 22.7 mmol/L (21.0-32.0); Chloride 103 mmol/L (98-108); Cholesterol 116 mg/dL (<=200); Creatinine, Serum 1.04 mg/dL (0.70-1.20); EST Glomerular Filtration Rate 65 (>60); Ferritin 48 ng/mL (22-378); Globulin 4.4 g/dL (2.2-4.2); Glucose 107 mg/dL (70-99); High Density Lipoprotein 60 mg/dL; Low Density Lipoprotein Calc. 43 mg/dL; Potassium 3.7 mmol/L (3.3-5.1); Protein, Total 7.9 g/dL (5.9-8.4); Sodium Level 136 mmol/L (133-145); Total Bilirubin 2.31 mg/dL (0.00-1.30); Triglycerides 63 mg/dL; Very Low Density Lipoprotein 13 mg/dL (5-40); Vitamin D,25 Hydroxy 30.1 ng/mL (30-100); cholesterol:hdl ratio screen 1.93
[2025-03-07 11:29] LABS: Iron 94 ug/dL (50-170); Iron Binding Capacity,Total 314 ug/dL (250-450); Iron Binding Capacity,Unsat 220 ug/dL (228-428)
[2025-03-08 13:08] LABS: ANTINUCLEAR ANTIBODIES DIRECT Negative (Negative); Anti-Mitochondrial AB <20.0 Units (0.0-20.0)
[2025-03-12 09:08] LABS: AFP, Tumor Marker 56.9 ng/mL (0.0-9.2); Albumin 3.4 g/dL (2.9-4.4); Alpha-1-Globulins 0.3 g/dL (0.0-0.4); Alpha-2-Globulins 0.4 g/dL (0.4-1.0); Anti-Smooth Muscle ABS 10 Units (0-19); Cancer Antigen 125 25.7 U/mL (0.0-38.1); Carbohydrate AG 19-9 36 U/mL (0-35); Ceruloplasmin 17.4 mg/dL (19.0-39.0); Copper, Serum or Plasma 61 ug/dL (80-158); Free Kappa Light Chains 55.8 mg/L (3.3-19.4); Free Lambda Light Chains 39.9 mg/L (5.7-26.3); GGTP 69 IU/L (0-60); Gamma Globulin 2.7 g/dL (0.4-1.8); HCV Quant. RNA PCR 3430 IU/mL (.); HCV log 10 3.535 (.); HCV log 10 3.597 (.); HEPATITIS B SURFACE AG Negative (Negative); Haptoglobin < 10 mg/dL (33-346); Hep C Antibodies Reactive (Non Reactive); Hepatitis A IgM Antibody Negative (Negative); Hepatitis B Core AB IgM Negative (Negative); Hepatitis C Quant 3950 IU/mL (.); IgG, Quant 2865 mg/dL (586-1602); Immunoglobulin A 392 mg/dL (87-352); Immunoglobulin E 21 IU/mL (6-495); Immunoglobulin G, Subclass 1 1658 mg/dL (248-810); Immunoglobulin G, Subclass 2 376 mg/dL (130-555); Immunoglobulin G, Subclass 3 135 mg/dL (15-102); Immunoglobulin G, Subclass 4 127 mg/dL (2-96); Immunoglobulin M 219 mg/dL (26-217); PROEL- TOTAL PROTEIN 7.6 g/dL (6.0-8.5)
== END | disposition home or self-care (01) ==
PROVIDERS: Radiology Diagnostic Radiology; PCP Internal Medicine; Referring Provider Emergency Medicine; Visit Provider Emergency Medicine
DX: D50.0 Iron deficiency anemia secondary to blood loss (chronic) (principal); K72.90 Hepatic failure, unspecified without coma; K74.60 Unspecified cirrhosis of liver; B18.2 Chronic viral hepatitis C; R18.8 Other ascites
CPT/HCPCS: 36415; 76705; 80053; 80061; 80074; 82105; 82140; 82248; 82306; 82390; 82525; 82728; 82784; 82785; 82787; 82977; 83010; 83036; 83516; 83540; 83550; 83883; 84165; 84439; 84443; 85025; 85610; 85730; 86038; 86140; 86225; 86301; 86304; 86334; 86706; 87522

== ENCOUNTER 2025-03-15 11:15 | Day surgery (SDC) | payer MEDICAID, SELFPAY ==
[2025-03-15] VITALS (7 sets, daily range): BP systolic 93–112; BP diastolic 53–65; PULSE 58–68; RESP 16; TEMP 36.3–36.7; O2SAT 93–97; BMI 33.5
[2025-03-15] MEDS: Lactated Ringers 1,000 ML 15 ML IV (12:00)
== END 2025-03-15 14:26 | disposition home or self-care (01) ==
LOC: EN 11:16 → AC 11:17
PROVIDERS: Visit Provider Internal Medicine Gastroenterology
PROC: 0DJ08ZZ Inspection of Upper Intestinal Tract, Via Natural or Artificial Opening Endoscopic (ICD-10-PCS; CPT 43235; principal; 2025-03-15 12:40)
DX: K70.31 Alcoholic cirrhosis of liver with ascites (principal); K76.6 Portal hypertension; I85.10 Secondary esophageal varices without bleeding; F31.9 Bipolar disorder, unspecified; J44.9 Chronic obstructive pulmonary disease, unspecified; B18.2 Chronic viral hepatitis C; K29.50 Unspecified chronic gastritis without bleeding; K31.89 Other diseases of stomach and duodenum; R41.0 Disorientation, unspecified; K21.9 Gastro-esophageal reflux disease without esophagitis; G89.29 Other chronic pain; Z91.199 Patient's noncompliance with other medical treatment and regimen due to unspecified reason; F17.210 Nicotine dependence, cigarettes, uncomplicated; Z79.899 Other long term (current) drug therapy
CPT/HCPCS: 44361; 88305; 88342; J2405

== ENCOUNTER → 2025-03-27 | Outpatient (CLI) | payer MEDICAID, SELFPAY ==
--- NOTE | 2025-03-27 12:11 | RAD_ITS ---
PROCEDURE: CHEST PA AND LATERAL 03/27/2025 REASON FOR EXAM: SOB TECHNIQUE: CHEST PA AND LATERAL COMPARISON: Chest x-ray of 02/22/2025. RAD/Chest PA and Lateral IMPRESSION: Lungs appear clear of acute disease, and unchanged. No pleural effusion or pne umothorax is noted. The cardiomediastinal silhouette is within the normal range. No significant osseous abnormality is seen. No evidence of acute cardiopulmonary disease Reading Location: [place] [id number]
--- NOTE | 2025-03-27 12:11 | RAD_ITS ---
PROCEDURE: CHEST PA AND LATERAL 03/27/2025 REASON FOR EXAM: SOB TECHNIQUE: CHEST PA AND LATERAL COMPARISON: Chest x-ray of 02/22/2025. RAD/Chest PA and Lateral IMPRESSION: Lungs appear clear of acute disease, and unchanged. No pleural effusion or pne umothorax is noted. The cardiomediastinal silhouette is within the normal range. No significant osseous abnormality is seen. No evidence of acute cardiopulmonary disease Reading Location: [place] [id number]
[2025-03-27 16:51] LABS: Hematocrit 33.7 % (37-47); Hemoglobin 11.4 g/dL (12.0-15.0); Immature Granulocytes Count 0.010 X10^3/uL (0.0-0.0); Mean Corp Hgb Conc 33.8 g/dL (32-36); Mean Corpuscular Volume 91.8 fL (81-99); Mean Platelet Vol. 11.5 fl (6.2-12.0); NRBC Flagged by Analyzer 0 % (0-5); POSITIVE COUNT YES; Platelet Count 57 K/mm3 (150-450); RBC Distribution Width CV 15.0 % (11.6-14.6); RBC Distribution Width SD 50.6 fl (35.1-43.9); Red Blood Count 3.67 M/mm3 (4.2-5.4); White Blood Count 6.1 K/mm3 (4.4-11.0)
[2025-03-27 17:21] LABS: AST(SGOT) 81 U/L (<=31); Alanine Aminotransfer ALT/SGPT 38 U/L (<=34); Albumin, Serum 3.2 g/dL (3.5-5.0); Alkaline Phosphatase 168 U/L (35-104); Anion Gap 10 (5-15); BUN 9 mg/dL (4-19); BUN/Creat Ratio 9.4 RATIO (10-20); Calcium,Total 9.4 mg/dL (7.6-11.0); Carbon Dioxide 19.5 mmol/L (21.0-32.0); Chloride 105 mmol/L (98-108); Globulin 3.8 g/dL (2.2-4.2); Glucose 109 mg/dL (70-99); Potassium 3.8 mmol/L (3.3-5.1)
== END | disposition home or self-care (01) ==
LOC: VSLAB 11:22 → RAD 11:39
DX: R06.02 Shortness of breath (principal); R53.83 Other fatigue
CPT/HCPCS: 36415; 71046; 80053; 84443; 85025

== ENCOUNTER → 2025-04-04 | Outpatient (CLI) | payer MEDICAID, SELFPAY | END | disposition home or self-care (01) | LOC: PSN 09:07 | DX: R55 Syncope and collapse (principal) | CPT/HCPCS: 93005 ==

== ENCOUNTER → 2025-05-07 | Outpatient (CLI) | payer MEDICAID, SELFPAY ==
--- NOTE | 2025-05-07 12:02 | RAD_ITS ---
PROCEDURE: HUMERUS MIN 2 VIEWS 05/07/2025 REASON FOR EXAM: PAIN IN LEFT ARM TECHNIQUE: HUMERUS MIN 2 VIEWS Laterality: Left FINDINGS: No evidence acute fracture or dislocation. The soft tissues are unremarkable. RAD/Humerus min 2 Views IMPRESSION: No acute osseous abnormalities. Reading Location: [id number]
--- NOTE | 2025-05-07 12:02 | RAD_ITS ---
PROCEDURE: FOREARM 2 VIEWS 05/07/2025 REASON FOR EXAM: PAIN IN LEFT ARM TECHNIQUE: FOREARM 2 VIEWS Laterality: Left FINDINGS: No evidence acute fracture or dislocation. The soft tissues are unremarkable. RAD/Forearm 2 Views IMPRESSION: No acute osseous abnormalities. Reading Location: [id number]
== END | disposition home or self-care (01) ==
LOC: RAD 11:58
DX: M79.602 Pain in left arm (principal)
CPT/HCPCS: 73060; 73090

== ENCOUNTER → 2025-05-20 | Outpatient (CLI) | payer MEDICAID, SELFPAY ==
[2025-05-20 12:09] LABS: Hematocrit 36.6 % (37-47); Hemoglobin 12.4 g/dL (12.0-15.0); Immature Granulocytes Count 0.030 X10^3/uL (0.0-0.0); Mean Corp Hgb Conc 33.9 g/dL (32-36); Mean Corpuscular Volume 85.3 fL (81-99); Mean Platelet Vol. 11.9 fl (6.2-12.0); NRBC Flagged by Analyzer 0 % (0-5); POSITIVE COUNT YES; Platelet Count 69 K/mm3 (150-450); RBC Distribution Width CV 15.7 % (11.6-14.6); RBC Distribution Width SD 47.7 fl (35.1-43.9); Red Blood Count 4.29 M/mm3 (4.2-5.4); White Blood Count 7.9 K/mm3 (4.4-11.0)
[2025-05-20 12:18] LABS: Prothrombin Time (Protime)PT. 16.8 SECONDS (11.7-14.9)
[2025-05-20 12:42] LABS: AST(SGOT) 166 U/L (<=31); Alanine Aminotransfer ALT/SGPT 93 U/L (<=34); Albumin, Serum 3.4 g/dL (3.5-5.0); Alkaline Phosphatase 210 U/L (35-104); Anion Gap 11 (5-15); BUN 8 mg/dL (4-19); BUN/Creat Ratio 10.0 RATIO (10-20); CRP 20.20 mg/L (0.0-3.0); Calcium,Total 9.1 mg/dL (7.6-11.0); Carbon Dioxide 21.9 mmol/L (21.0-32.0); Chloride 103 mmol/L (98-108); Globulin 4.6 g/dL (2.2-4.2); Glucose 100 mg/dL (70-99); Potassium 3.5 mmol/L (3.3-5.1)
[2025-05-20 12:45] LABS: Ammonia 37.0 umol/L (11-51)
== END | disposition home or self-care (01) ==
LOC: LAB 11:12
PROVIDERS: Internal Medicine
DX: K74.60 Unspecified cirrhosis of liver (principal); B18.2 Chronic viral hepatitis C; R18.8 Other ascites
CPT/HCPCS: 80053; 82140; 85025; 85610; 86140

== ENCOUNTER → 2025-06-26 | Outpatient (CLI) | payer MEDICAID, SELFPAY ==
[2025-06-26 10:32] LABS: Ammonia 119.0 umol/L (11-51)
== END | disposition home or self-care (01) ==
DX: K72.90 Hepatic failure, unspecified without coma (principal)
CPT/HCPCS: 36415; 82140

== ENCOUNTER 2025-07-11 08:37 | Emergency (ER) | payer MEDICAID, SELFPAY ==
[2025-07-11 08:38] VITALS: BP 121/79; PULSE 84; RESP 16; TEMP 36.3; O2SAT 97
[2025-07-11 08:41] VITALS: BMI 35.0
--- NOTE | 2025-07-11 09:11 | EDS_ITS ---
HPI History of Present Illness Chief Complaint: Back Narrative Narrative: Chief complaint and HPI: 49-year-old female with past medical history of polysubstance abuse, hepatitis C with cirrhosis, history of lumbar herniated disc presents for evaluation of lumbar back pain. Patient states for the past 30 days she has been in halfway. States that their beds are not comfortable or padded. States she was discharged from halfway yesterday. She denies any trauma to the back or fight. She states that the pain did cause her to fall yesterday but states that she fell forward and did not hit her back. Did not hit her head. No LOC. Pain periodically radiates into her bilateral buttocks. She states that she has difficulty ambulating due to the pain. Daughter in the room states that the patient has history of a lumbar herniated disc that intermittently flares. She has chronic nerve pain in which she takes gabapentin. Patient denies any fever, chills, shortness of breath, chest pain, dysuria. Denies numbness, urinary retention, stool or urinary incontinence, saddle anesthesia, recent invasive manipulation of the spine, recent intravenous drug use. Patient states that she feels that she did not get good care in halfway. Review of systems: See HPI Medications: As listed on the chart Allergies: As listed on the chart PFSH: Per chart Vital signs: As listed on the chart. Reviewed. Physical exam: Gen: A&O x3, NAD Head: Normocephalic, atraumatic Eyes: No sclera icterus, conjunctiva clear ENT: Moist mucous membranes Neck: Trachea midline, full range of motion, nontender CV: RRR, no murmurs, no peripheral edema Resp: Lungs CTA BL, no w/r/c GI: Abd soft, nondistended, nontender : No CVA tenderness Musc: Ambulated to the bathroom without difficulty, moves all extremities but endorses back pain with movement of the bilateral lower extremities-states it pulls on her lower back, no deformity, strength +5/5 in all extremities, no midline spinal tenderness, no bony step-offs, mild tenderness to palpation of the bilateral paraspinal musculature of the lower lumbar spine, no signs of trauma or infection, no saddle paresthesias, sensation intact Skin: Warm, dry Neuro: Alert, oriented, grossly intact Psych: Cooperative, appropriate mood and affect [facility] Medical History (Updated 10/16/25 @ 12:[address] Brock Ruiz, DO) Thrombocytopenia Dietary restriction History of pain when walking Decompensated cirrhosis Redness of skin Blackout Abdominal ascites Urolithiasis Hydronephrosis with renal calculous obstruction Hydroureteronephrosis Bipolar disorder Anxiety Depression Ascites of liver Complete edentulism, class III Alcohol abuse Chronic pain GERD (gastroesophageal reflux disease) Restless legs Iron deficiency anemia Hyperbilirubinemia Substance abuse Marijuana use MRSA infection Low iron Anemia Hepatitis Migraine headache Seizures History of diverticulitis COPD (chronic obstructive pulmonary disease) Smoker Obesity Polysubstance abuse Cirrhosis of liver Anxiety and depression Hepatitis C, chronic Home Medications ?Medication ?Instructions ?Recorded ?Last Taken ?Type trazodone 50 mg tablet 100 mg PO QHS PRN sleep 12/2707/10/25 History furosemide 40 mg tablet (Lasix) 40 mg PO DAILY DIURETI C #30 tabs 02/05/25 07/10/25 Rx lactulose 10 gram/15 mL oral 10 g (15 mL) PO TID PRN s tomach 02/05/25 07/10/25 Rx solution upset #3,000 mL pantoprazole 40 mg tablet,delayed 40 mg PO DAILY gerd 03/13/25 07/10/25 History release rifaximin 550 mg tablet (Xifaxan) 550 mg PO BID diarrh ea 30 days #60 05/20/25 07/10/25 Rx tabs ursodiol 500 mg tablet 500 mg PO TID 1 month #90 ta bs 05/21/25 07/10/25 Rx aripiprazole 5 mg tablet 5 mg PO DAILY 07/11/2507/10 History buspirone 7.5 mg tablet 7.5 mg PO TID anxiety 07/10/25 History cholecalciferol (vitamin D3) 50 50 mcg PO DAILY supple ment 07/11/25 07/10/25 History mcg (2,000 unit) capsule desvenlafaxine succinate 25 mg 25 mg PO DAILY depressi on 07/11/25 07/10/25 History tablet,extended release 24 hr desvenlafaxine succinate 50 mg 50 mg PO DAILY depressi on 07/11/25 07/10/25 History tablet,extended release 24 hr gabapentin 300 mg capsule 300 mg PO TID nerve pain 07/10/25 History lidocaine 5 % topical patch 1 patch topical DAILY PRN pain 3 07/11/25 Unknown Rx (Lidoderm) days #3 ea ramelteon 8 mg tablet 8 mg PO QHS sleep 07/11/25 1 History spironolactone 100 mg tablet 100 mg PO DAILY heart 07/10/25 History topiramate 50 mg tablet 50 mg PO DAILY seizures 06/2607/10/25 History Allergy/AdvReac Type Severity Reaction Status Date / Time bupropion HCl (From Allergy SEIZURES Verified 07/11/25 08:38 Wellbutrin) codeine Allergy Rash Verified 07/11/25 08:38 Family History Mother Diabetes Father Cancer HX Throat CA. Surgical History History of abdominal paracentesis H/O tubal ligation History of liver biopsy Social History adopted: No household members: family housing: other number of children: 3 current occupational status: unemployed pets and animals: Yes history of recent travel: No sexually active: Yes Smoking Status: Current every day smoker tobacco type: cigarettes second hand exposure: Yes alcohol intake: current alcohol intake frequency: a few times a month substance use type: former substance user Date of last use: heroin, methamphetamine, marijuana and other seatbelt use: always do you feel safe at home: Yes EXAM Physical Exam Const Vital Signs: 07/11/25 08:38 07/11/25 12:23 Temperature 97.4 F L 97.9 F Temperature Source Temporal Pulse Rate 84 81 Respiratory Rate 16 16 Blood Pressure 121/79 H 124/77 H Blood Pressure Mean 93 92 Pulse Ox 97 99 MDM MDM MDM Narrative Medical decision making narrative: 49-year-old female with past medical history of polysubstance abuse, hepatitis C with cirrhosis, history of lumbar herniated disc presents for evaluation of lumbar back pain. Patient states for the past 30 days she has been in halfway. States that their beds are not comfortable or padded. States she was discharged from halfway yesterday. She denies any trauma to the back. Daughter in the room states that the patient has history of a lumbar herniated disc that intermittently flares. She has chronic nerve pain in which she takes gabapentin. Patient denies any fever, chills, shortness of breath, chest pain, dysuria, numbness, urinary retention, stool or urinary incontinence, recent invasive manipulation of the spine, recent intravenous drug use. Differential diagnosis includes but is not limited to myofascial spasm, back strain, chronic herniated disc. There is nothing to suggest any infectious etiology. There is nothing to suggest any acute cauda equina syndrome. At this point in time I do not feel any emergent MRI or CT is warranted. Patient's symptoms will be treated with Toradol, muscle relaxer, lidocaine patch. Will obtain x-ray of the lumbar spine to rule out any occult fracture although low suspicion. Patient states she did not feel that she got good care at halfway and requesting basic labs to be performed. This was ordered with a urine. CBC without leukocytosis. Patient has baseline anemia of 10.7. She has thrombocytopenia of 39. On her chart review she has a history of thrombocytopenia in the past. No current bleeding. CMP shows baseline hyperbilirubinemia and transaminitis from her hepatitis C cirrhosis. UA is negative for UTI. Urine drug screen positive for oxycodone. X-ray of the lumbar spine shows straightening of the lumbar curvature which can indicate spasm. There is loss of disc height which is most severe at L5-S1. On reevaluation, patient's pain has improved. She is ambulated multiple times in the emergency department without difficulty. She states her pain is controlled and is ready to discharge home. However given her significant thrombocytopenia, I did contact Dr. Porras who she follows with her cirrhosis. No need for emergent intervention at this time per his recommendations. He was aware that the patient did receive Toradol. Plan is to provide an order to have her labs repeated in 3 days. Follow-up in his office. She confirmed understand the plan. Patient stable to discharge home. Was prescribed lidocaine patches. Patient referred to primary care physician and orthopedic physician. Impression: 1. Lumbar back spasm 2. Chronic anemia 3. Chronic thrombocytopenia 4. Chronic transaminitis secondary to hepatitis C cirrhosis Lab Data Labs: Laboratory Results - last 24 hr 07/11/25 07/11/25 09:06 09:38 WBC 6.2 RBC 3.65 L Hgb 10.7 L Hct 32.5 L MCV 89.0 MCH 29.3 MCHC 32.9 RDW Std Deviation 55.0 H RDW Coeff of Katalina 16.9 H Plt Count 39 L* MPV 12.3 H Immature Gran % (Auto) 0.300 Neut % (Auto) 70.2 H Lymph % (Auto) 17.3 L Rhea % (Auto) 9.5 Eos % (Auto) 2.4 Baso % (Auto) 0.3 Absolute Neuts (auto) 4.3 Absolute Lymphs (auto) 1.07 Nucleated RBC % 0 Platelet Estimate MKD DEC Sodium 136 Potassium 3.7 Chloride 107 Carbon Dioxide 19.2 L Anion Gap 10 BUN 15 Creatinine 1.01 Estim Creat Clear Calc 67.43 Est GFR (MDRD) Non-Af 67 BUN/Creatinine Ratio 14.4 Glucose 132 H Calcium 8.8 Total Bilirubin 1.77 H AST 101 H ALT 52 H Alkaline Phosphatase 105 H Total Protein 6.7 Albumin 3.1 L Globulin 3.6 Albumin/Globulin Ratio 0.9 Urine Color Yellow Urine Clarity Sl. Cloudy Urine pH 6.0 Ur Specific [place] 1.025 Urine Protein 30 H Urine Glucose (UA) Normal Urine Ketones Negative Urine Occult Blood 150 H Urine Nitrite Negative Urine Bilirubin Negative Urine Urobilinogen 4 H Ur Leukocyte Esterase Negative Urine RBC 0-5 SEEN Urine WBC 0 SEEN Ur Squamous Epith Cells 5-10 SEEN Urine Bacteria 1+ Urine Mucus 1+ Urine Opiates Screen NEGATIVE U Buprenorphine Qual NEGATIVE Ur Oxycodone Screen PRESUMPTIVE POSITIVE Urine Methadone Screen NEGATIVE Urine Fentanyl Screen NEGATIVE Ur Barbiturates Screen NEGATIVE Ur Phencyclidine Scrn NEGATIVE Ur Amphetamines Screen NEGATIVE U Benzodiazepines Scrn NEGATIVE Urine Cocaine Screen NEGATIVE U Cannabinoids Screen NEGATIVE Radiography Diagnostic Testing: Clinical Impression(s) from Imaging Studies Lumbar Spine X-Ray 07/11/25 09:40 IMPRESSION: There is straightening of the lumbar curvature which can indicate spasm. There is loss of disc height which is most severe at L5-S1. Reading Location: [facility] Discharge Plan Triage Chief Complaint: Back ED Provider: Brock Ruiz Dx/Rx/DC Orders Clinical Impression: Back pain Instructions: ED Back Spasm, No Trauma Prescriptions: New lidocaine [Lidoderm] 5 % adhesive patch,medicated 1 patch topical DAILY PRN (Reason: pain) 3 Days Qty: 3 0RF Rx Instructions: leave on most painful area for up to 12 hrs No Action trazodone 50 mg tablet 100 mg PO QHS PRN (Reason: sleep) pantoprazole 40 mg tablet,delayed release (DR/EC) 40 mg PO DAILY Patient Comments: am spironolactone 100 mg tablet 100 mg PO DAILY Patient Comments: am gabapentin 300 mg capsule 300 mg PO TID Patient Comments: am buspirone 7.5 mg tablet 7.5 mg PO TID aripiprazole 5 mg tablet 5 mg PO DAILY Patient Comments: am ramelteon 8 mg tablet 8 mg PO QHS Patient Comments: take 30min prior to bedtime cholecalciferol (vitamin D3) 50 mcg (2,000 unit) capsule 50 mcg PO DAILY Patient Comments: am desvenlafaxine succinate 25 mg tablet extended release 24 hr 25 mg PO DAILY Patient Comments: am Rx Instructions: take with 50mg tablet to =75mg topiramate 50 mg tablet 50 mg PO DAILY Patient Comments: am desvenlafaxine succinate 50 mg tablet extended release 24 hr 50 mg PO DAILY Patient Comments: am Rx Instructions: take with 25mg tab to = 75mg lactulose 10 gram/15 mL solution 10 g PO TID PRN (Reason: stomach upset) Qty: 3000 0RF furosemide [Lasix] 40 mg tablet 40 mg PO DAILY Qty: 30 0RF Rx Instructions: start on 04/14/24 Xifaxan 550 mg tablet 550 mg PO BID 30 Days Qty: 60 6RF ursodiol 500 mg tablet 500 mg PO TID 30 Days Qty: 90 5RF Patient Comments: am Other Ambulatory Orders: CBC W/Diff, Automated (Routine) Timeframe: 3 Days Facility: [facility] - Location: Laboratory [facility] Provider: Eyad Saeed Referrals: Gurinder Ahn DO [Med Staff - Active Staff, Orthopedics] - 3-5 Days José Porras DO [Med Staff - Active Staff, Gastroenterology] - 3-5 Days Eyad Saeed, [employer]PERATOR-C [Primary Care Provider, Family Practice] - 3-5 Days Activity Restrictions/Additional Instructions: You need to have your CBC repeated and 3 days to reassess your platelets. Return back to ED if symptoms change or worsen. Return back to the ED if you have any spontaneous bleeding. Follow-up with primary care physician, Dr. Porras, orthopedic physician. Continue your home medications. Recommend rest and heating pad as needed. Print Language: Malian Disposition Disposition: Home, Self Care Discharge Date/Time: 07/11/25 12:24
[2025-07-11] MEDS: Lidocaine 5% Patch 1 PATCH TOPICAL (09:13)
[2025-07-11 09:24] LABS: Color, Urine Yellow (Yellow); Glucose, Dipstick Normal (Normal); Ketone-Dipstick Negative (Negative); Leukocyte Esterase-Dipstick Negative /ul (Negative); Nitrite-Dipstick Negative (Negative); Occult Blood-Urine 150 /ul (Negative); Protein-Dipstick 30 mg/dl (Negative); Specific Gravity, Urine 1.025 (1.002-1.030); Urine Bilirubin Dipstick Negative (Negative)
[2025-07-11 09:32] LABS: Mucous, Urine 1+ /hpf (<or=2+); Squamous Epithelial Cells - UA 5-10 SEEN /hpf (5-10)
[2025-07-11 09:33] LABS: Red Blood Cells-Urine 0-5 SEEN /hpf (0-5)
--- NOTE | 2025-07-11 09:40 | RAD_ITS ---
PROCEDURE: LUMBAR SPINE 2 OR 3 VIEWS 07/11/2025 REASON FOR EXAM: PAIN TECHNIQUE: Procedure Code: RADSPLL Modality: DX Procedure: Lumbar spine two views COMPARISON: None FINDINGS: There is straightening of the lumbar curvature which can indicate spasm. There is loss of disc height which is most severe at L5-S1. The facets are aligned, with moderate sclerosis. Vertebral body height is maintained. There is no spondylolisthesis. Mineralization is normal. Clips are noted in the right and left pelvis. Vascular calcifications are visible. RAD/Lumbar Spine 2 or 3 Views IMPRESSION: There is straightening of the lumbar curvature which can indicate spasm. There is loss of disc height which is most severe at L5-S1. Reading Location: [facility]
[2025-07-11 09:49] LABS: Hematocrit 32.5 % (37-47); Hemoglobin 10.7 g/dL (12.0-15.0); Immature Granulocytes Count 0.020 X10^3/uL (0.0-0.0); Mean Corp Hgb Conc 32.9 g/dL (32-36); Mean Corpuscular Volume 89.0 fL (81-99); Mean Platelet Vol. 12.3 fl (6.2-12.0); NRBC Flagged by Analyzer 0 % (0-5); POSITIVE COUNT YES; RBC Distribution Width CV 16.9 % (11.6-14.6); RBC Distribution Width SD 55.0 fl (35.1-43.9); Red Blood Count 3.65 M/mm3 (4.2-5.4); White Blood Count 6.2 K/mm3 (4.4-11.0)
[2025-07-11 09:58] LABS: Differential Indicated SCAN CRITERIA MET; Platelet Count 39 K/mm3 (150-450)
--- NOTE | 2025-07-11 10:01 | ED.RN ---
reported to Dr Mora that pt has platelet of 39
[2025-07-11 10:30] LABS: AST(SGOT) 101 U/L (<=31); Alanine Aminotransfer ALT/SGPT 52 U/L (<=34); Albumin, Serum 3.1 g/dL (3.5-5.0); Alkaline Phosphatase 105 U/L (35-104); Anion Gap 10 (5-15); BUN 15 mg/dL (4-19); BUN/Creat Ratio 14.4 RATIO (10-20); Calcium,Total 8.8 mg/dL (7.6-11.0); Carbon Dioxide 19.2 mmol/L (21.0-32.0); Chloride 107 mmol/L (98-108); Estimated Creatinine Clearance 67.43 ml/min (50-250); Globulin 3.6 g/dL (2.2-4.2); Glucose 132 mg/dL (70-99); Potassium 3.7 mmol/L (3.3-5.1)
[2025-07-11 11:03] LABS: Barbiturate Urine NEGATIVE (< 200 ng/mL); Benzodiazepine Urine NEGATIVE (< 200 ng/mL); PCP Urine NEGATIVE (< 25 ng/mL); THC Urine NEGATIVE (< 50 ng/mL)
--- NOTE | 2025-07-11 11:04 | CM.ED ---
Social work After cereal supervisor Jesi DORAN met with patient, Jesi asked this SW to call Nadia Hoyt to inquire about palliative care. Patient reported receiving palliative care, but could not recall the individual. This SW called [facility] (ph: [phone]) and had to leave a voicemail at 1030. Ailyn Campbell, patient's case management assistant, called this SW back at 1105 and stated that patient's palliative care is through Hilary Salas NP. Hilary is reportedly through both [facility] and [facility]. This SW followed up with patient at 1115 to inform patient of the above information, as well as the information regarding appointment set up by Jesi DORAN at [facility] (Tuesday09/02/25 at 1030) with Terese Soni. [facility]'s director of adult case management, Anusha Bloom, is working on getting patient an earlier appointment. SW verified patient's phone number to call if patient has been discharged prior to this earlier appointment being reported to . Patient expressed understanding and paperwork was placed in patient's medication bag from [facility] that was in room. SW to follow as needed. Sandra Gifford, SELF RISING FLOUR MIXER, BRINE PLANT OPERATOR
--- NOTE | 2025-07-11 12:13 | CM.ED ---
Social work SW heard back from [facility]'s director of case management, Anusha, that patient can see Pam at [facility] on Tuesday07/15/25 at 1100. Patient updated. Sandra Gifford, COOLING ROOM ATTENDANT, FEDERAL MEDIATOR
[2025-07-11 12:23] VITALS: BP 124/77; PULSE 81; RESP 16; TEMP 36.6; O2SAT 99
== END 2025-07-11 12:24 | disposition home or self-care (01) ==
PROVIDERS: Emergency Provider Surgery; Visit Provider Surgery
DX: M62.830 Muscle spasm of back (principal); K74.60 Unspecified cirrhosis of liver; F19.11 Other psychoactive substance abuse, in remission; J44.9 Chronic obstructive pulmonary disease, unspecified; M51.26 Other intervertebral disc displacement, lumbar region; D64.9 Anemia, unspecified; D69.6 Thrombocytopenia, unspecified; G89.29 Other chronic pain; B19.20 Unspecified viral hepatitis C without hepatic coma; F17.210 Nicotine dependence, cigarettes, uncomplicated; Z79.899 Other long term (current) drug therapy
CPT/HCPCS: 72100; 80053; 80307; 81001; 85025; 96374; 99284; A4216

== ENCOUNTER 2025-07-15 14:32 | Emergency (ER) | payer MEDICAID, SELFPAY ==
[2025-07-15 14:34] VITALS: BP 123/71; PULSE 86; RESP 18; TEMP 36.4; O2SAT 100; BMI 35.9
[2025-07-15 15:13] LABS: Hematocrit 33.2 % (37-47); Hemoglobin 11.1 g/dL (12.0-15.0); Immature Granulocytes Count 0.030 X10^3/uL (0.0-0.0); Mean Corp Hgb Conc 33.4 g/dL (32-36); Mean Corpuscular Volume 87.4 fL (81-99); Mean Platelet Vol. 11.9 fl (6.2-12.0); NRBC Flagged by Analyzer 0 % (0-5); POSITIVE COUNT YES; Platelet Count 65 K/mm3 (150-450); RBC Distribution Width CV 17.4 % (11.6-14.6); RBC Distribution Width SD 54.4 fl (35.1-43.9); Red Blood Count 3.80 M/mm3 (4.2-5.4); White Blood Count 7.5 K/mm3 (4.4-11.0)
[2025-07-15 15:14] LABS: Mucous, Urine 0 SEEN /hpf (<or=2+)
[2025-07-15 15:20] LABS: Color, Urine Yellow (Yellow); Glucose, Dipstick Normal (Normal); Ketone-Dipstick Negative (Negative); Leukocyte Esterase-Dipstick Negative /ul (Negative); Nitrite-Dipstick Negative (Negative); Occult Blood-Urine 50 /ul (Negative); Protein-Dipstick 15 mg/dl (Negative); Specific Gravity, Urine 1.010 (1.002-1.030)
[2025-07-15 15:31] LABS: Urine Bilirubin Dipstick 1 mg/dL (Negative)
[2025-07-15 15:34] LABS: Red Blood Cells-Urine 5-10 SEEN /hpf (0-5); Squamous Epithelial Cells - UA 0-5 SEEN /hpf (5-10)
[2025-07-15 15:47] LABS: Lipase 36 U/L (13-75)
[2025-07-15 15:50] LABS: AST(SGOT) 239 U/L (<=31); Alanine Aminotransfer ALT/SGPT 106 U/L (<=34); Albumin, Serum 3.2 g/dL (3.5-5.0); Alkaline Phosphatase 130 U/L (35-104); Anion Gap 8 (5-15); BUN 5 mg/dL (4-19); BUN/Creat Ratio 5.8 RATIO (10-20); Calcium,Total 8.7 mg/dL (7.6-11.0); Carbon Dioxide 20.6 mmol/L (21.0-32.0); Chloride 105 mmol/L (98-108); Estimated Creatinine Clearance 83.16 ml/min (50-250); Globulin 3.5 g/dL (2.2-4.2); Glucose 145 mg/dL (70-99); Internal QC Validated? YES +Cl - CLEAR BKGD; Potassium 3.8 mmol/L (3.3-5.1); Pregnancy, Serum, hCG Quali. NEGATIVE Negative; Record Kit Lot#, Serum Preg. 0000980607
[2025-07-15 16:12] VITALS: BP 115/70; PULSE 86; RESP 18; TEMP 36.4; O2SAT 100
== END 2025-07-15 16:13 | disposition home or self-care (01) ==
PROVIDERS: Emergency Provider Emergency Medicine; Visit Provider Emergency Medicine
DX: K74.60 Unspecified cirrhosis of liver (principal); J44.9 Chronic obstructive pulmonary disease, unspecified; R18.8 Other ascites; F17.210 Nicotine dependence, cigarettes, uncomplicated; Z79.899 Other long term (current) drug therapy
CPT/HCPCS: 80053; 81001; 83690; 84703; 85025; 99282; A4216

== ENCOUNTER → 2025-07-16 | Outpatient (CLI) | payer MEDICAID, SELFPAY ==
--- NOTE | 2025-07-16 10:02 | US_ITS ---
PROCEDURE: ABDOMEN LIMITED 07/16/2025 REASON FOR EXAM: CIRRHOSIS W/ ASCITES TECHNIQUE: Procedure Code: USABDL Modality: US Procedure: ABDOMEN LIMITED. Ascites survey. COMPARISON: None FINDINGS: The 4 quadrants of the abdomen were examined. No significant ascites is seen for paracentesis. US/Abdomen Limited IMPRESSION: No significant ascites is present for safe paracentesis. Reading Location: [facility]
== END | disposition home or self-care (01) ==
PROVIDERS: Referring Provider Emergency Medicine; Visit Provider Emergency Medicine
DX: K74.60 Unspecified cirrhosis of liver (principal); R18.8 Other ascites
CPT/HCPCS: 76705

== ENCOUNTER → 2025-07-25 | Outpatient (CLI) | payer MEDICAID, SELFPAY ==
[2025-07-25 16:44] LABS: Hematocrit 31.1 % (37-47); Hemoglobin 10.2 g/dL (12.0-15.0); Immature Granulocytes Count 0.030 X10^3/uL (0.0-0.0); Mean Corp Hgb Conc 32.8 g/dL (32-36); Mean Corpuscular Volume 87.6 fL (81-99); Mean Platelet Vol. 11.0 fl (6.2-12.0); NRBC Flagged by Analyzer 0 % (0-5); POSITIVE COUNT YES; Platelet Count 68 K/mm3 (150-450); RBC Distribution Width CV 17.3 % (11.6-14.6); RBC Distribution Width SD 55.1 fl (35.1-43.9); Red Blood Count 3.55 M/mm3 (4.2-5.4); White Blood Count 7.0 K/mm3 (4.4-11.0)
[2025-07-25 18:11] LABS: AST(SGOT) 91 U/L (<=31); Alanine Aminotransfer ALT/SGPT 63 U/L (<=34); Albumin, Serum 3.1 g/dL (3.5-5.0); Alkaline Phosphatase 129 U/L (35-104); Anion Gap 6 (5-15); BUN 10 mg/dL (4-19); BUN/Creat Ratio 11.6 RATIO (10-20); Bilirubin, Direct 1.48 mg/dL (0.00-0.30); Calcium,Total 9.1 mg/dL (7.6-11.0); Carbon Dioxide 21.9 mmol/L (21.0-32.0); Chloride 106 mmol/L (98-108); Cholesterol 68 mg/dL (<=200); Globulin 3.9 g/dL (2.2-4.2); Glucose 115 mg/dL (70-99); Low Density Lipoprotein Calc. 25 mg/dL; Potassium 4.1 mmol/L (3.3-5.1); Triglycerides 60 mg/dL; Very Low Density Lipoprotein 12 mg/dL (5-40); cholesterol:hdl ratio screen 2.40
[2025-07-25 18:17] LABS: Prothrombin Time (Protime)PT. 18.8 SECONDS (11.7-14.9)
[2025-07-28 17:07] LABS: HCV Quant. RNA PCR 36400 IU/mL (.)
== END | disposition home or self-care (01) ==
LOC: LAB 15:58
PROVIDERS: Referring Provider Internal Medicine; Visit Provider Internal Medicine
DX: D69.6 Thrombocytopenia, unspecified (principal); K74.60 Unspecified cirrhosis of liver; B18.2 Chronic viral hepatitis C; R18.8 Other ascites; B19.20 Unspecified viral hepatitis C without hepatic coma
CPT/HCPCS: 36415; 80053; 80061; 82248; 83036; 84443; 85025; 85610; 87522; 87902

== ENCOUNTER 2025-08-10 11:30 | Emergency (ER) | payer MEDICAID, SELFPAY ==
[2025-08-10 11:30] VITALS: BP 138/67; PULSE 84; RESP 14; TEMP 36.2; O2SAT 98; BMI 37.3
--- NOTE | 2025-08-10 11:44 | CT_ITS ---
PROCEDURE: ABDOMEN/PELVIS W IV CONT ONLY 08/10/2025 REASON FOR EXAM: ABD PAIN, DISTENTSION TECHNIQUE: Procedure Code: CTABDPELIV Modality: CT Procedure: ABDOMEN/PELVIS W IV CONT ONLY Coronal and Sagittal reconstruction series were provided. CONTRAST: Isovue 370 VOLUME: 80 mL One or more dose reduction techniques were used (e.g., Automated exposure control, adjustment of the mA and/or kV according to patient size, use of iterative reconstruction technique. RADIATION DOSE SUMMARY: CTDlvol: 24.16 mGy DLP: 431.40 mGycm COMPARISON: CT abdomen and pelvis February 22, 2025. FINDINGS: Lung bases: Clear. Liver: Lobulated contour consistent with cirrhosis. Gallbladder: Distended. No biliary dilation. Spleen: Splenomegaly, 70 cm length. Pancreas: Unremarkable. Adrenals: Unremarkable. Kidneys: A 2 mm obstructing stone at the right ureteropelvic junction causing moderate right hydronephrosis. No left hydronephrosis. Bladder: Unremarkable. Reproductive Organs: Status post tubal ligation. Bowel: No bowel wall thickening. Appendix: Unremarkable. Lymph nodes: No lymphadenopathy. Vasculature: Gastrohepatic and umbilical veins are patent. Peritoneum / Retroperitoneum: Large amount of ascites. Bones: No acute bony elements. Soft tissues: Anasarca. CT/Abdomen/Pelvis W IV Cont ONLY IMPRESSION: A 2 mm obstructing stone at the right ureteropelvic junction causing moderate r ight hydronephrosis. Liver steatosis, splenomegaly and ascites. Reading Location: [facility]
--- NOTE | 2025-08-10 11:45 | EX.ED.DYSGE1 ---
HPI History of Present Illness Chief Complaint: Abd Pain Narrative Narrative: Patient is a 49-year-old female with past medical history of thrombocytopenia, bipolar disorder, anxiety, depression, ascites of liver, alcohol abuse, GERD, iron deficiency anemia, substance abuse, hepatitis, seizures, COPD who presented to the emergency department the chief complaint of abdominal pain and distention. States that her abdominal pain and distention has been progressively worsening she is also having some lower extremity swelling from this as well. States that she follows with palliative care and has been told that she will be made comfortable as there is nothing else they can do for her. She states that she has been referred to specialist in [place] however they cannot get her in for months she noted. Patient states that she is passing gas and denies any black stools or blood in her stool [facility] Medical History Thrombocytopenia Dietary restriction History of pain when walking Decompensated cirrhosis Redness of skin Blackout Abdominal ascites Urolithiasis Hydronephrosis with renal calculous obstruction Hydroureteronephrosis Bipolar disorder Anxiety Depression Ascites of liver Complete edentulism, class III Alcohol abuse Chronic pain GERD (gastroesophageal reflux disease) Restless legs Iron deficiency anemia Hyperbilirubinemia Substance abuse Marijuana use MRSA infection Low iron Anemia Hepatitis Migraine headache Seizures History of diverticulitis COPD (chronic obstructive pulmonary disease) Smoker Obesity Polysubstance abuse Cirrhosis of liver Anxiety and depression Hepatitis C, chronic Home Medications Medication Instructions Recorded Last Taken Type trazodone 50 mg tablet 100 mg PO QHS PRN sleep 01/23/25 07/10/25 History lactulose 10 gram/15 mL oral 10 g (15 mL) PO TID PRN stomach 02/05/25 07/10/25 Rx solution upset #3,000 mL rifaximin 550 mg tablet (Xifaxan) 550 mg PO BID diarrhea 30 days #60 05/20/25 07/10/25 Rx tabs ursodiol 500 mg tablet 500 mg PO TID 1 month #90 tabs 05/21/25 07/10/25 Rx aripiprazole 5 mg tablet 5 mg PO DAILY 07/11/25 07/10/25 History buspirone 7.5 mg tablet 7.5 mg PO TID anxiety 07/11/25 07/10/25 History cholecalciferol (vitamin D3) 50 50 mcg PO DAILY supplement 07/11/25 07/10/25 History mcg (2,000 unit) capsule desvenlafaxine succinate 25 mg 25 mg PO DAILY depression 07/11/25 07/10/25 History tablet,extended release 24 hr desvenlafaxine succinate 50 mg 50 mg PO DAILY depression 07/11/25 07/10/25 History tablet,extended release 24 hr gabapentin 300 mg capsule 300 mg PO TID nerve pain 07/11/25 07/10/25 History lidocaine 5 % topical patch 1 patch topical DAILY PRN pain 3 07/11/25 Unknown Rx (Lidoderm) days #3 ea ramelteon 8 mg tablet 8 mg PO QHS sleep 07/11/25 07/10/25 History topiramate 50 mg tablet 50 mg PO DAILY seizures 07/11/25 07/10/25 History famotidine 20 mg tablet (Pepcid) 20 mg PO .evening PRN heart burn 1 07/25/25 Unknown Rx month #30 tabs sofosbuvir 400 mg-velpatasvir 100 1 tab PO QDAY 24 weeks #168 tabs 07/25/25 Unknown Rx mg tablet (Epclusa) furosemide 40 mg tablet (Lasix) 40 mg PO DAILY DIURETIC #30 tabs 07/30/25 Unknown Rx spironolactone 100 mg tablet 100 mg PO DAILY heart 1 month #30 07/30/25 Unknown Rx tabs bisacodyl 10 mg rectal suppository 10 mg ME DAILY PRN constipation 08/08/25 Unknown Rx (Dulcolax (bisacodyl)) #30 ea doxycycline hyclate 100 mg tablet 100 mg PO BID 08/10/25 Unknown History hydromorphone 2 mg tablet 2 mg PO 4X/DAY 08/10/25 Unknown History pantoprazole 40 mg tablet,delayed 40 mg PO DAILY 08/10/25 Unknown History release Allergy/AdvReac Type Severity Reaction Status Date / Time bupropion HCl (From Allergy SEIZURES Verified 08/10/25 11:31 Wellbutrin) codeine Allergy Rash Verified 08/10/25 11:31 Family History Mother Diabetes Father Cancer HX Throat CA. Surgical History History of abdominal paracentesis H/O tubal ligation History of liver biopsy Social History adopted: No household members: family housing: other number of children: 3 current occupational status: unemployed pets and animals: Yes history of recent travel: No sexually active: Yes Smoking Status: Current every day smoker tobacco type: cigarettes second hand exposure: Yes alcohol intake: current alcohol intake frequency: a few times a month substance use type: former substance user Date of last use: heroin, methamphetamine, marijuana and other seatbelt use: always do you feel safe at home: Yes ROS ROS ED ROS Narrative Constitutional: Denies any fevers or chills Cardiovascular: Denies chest pain Respiratory: Complains of shortness of breath Abdomen: Complains of abdominal pain denies any nausea or vomiting : Denies urinary symptoms Neurological: Denies any numbness, weakness, tingling Musculoskeletal: Complains of bilateral lower extremity swelling as noted above Skin: Denies any rashes or lesions EXAM Physical Exam Narrative Exam Narrative: General: Patient was sitting at the bedside did not appear to be uncomfortable secondary to her abdominal pain and distention Head: Atraumatic, normocephalic Eyes: PERRL bilaterally, EOMI bilaterally, no conjunctival injection noted Neck: Soft, supple, trachea midline Cardiovascular: Regular rate and rhythm Respiratory: Clear to auscultation bilaterally Abdomen: Soft, distended, diffuse tenderness to palpation no rebound or guarding on exam Extremities: +4/5 strength noted in the bilateral lower extremities Neurological: Patient following commands that she was at [facility] years 2024 Skin: Warm, dry, intact Const Vital Signs: 08/10/25 11:30 08/10/25 13:30 Temperature 97.1 F L Temperature Source Temporal Pulse Rate 84 Respiratory Rate 14 Blood Pressure 138/67 H 127/72 H Blood Pressure Mean 90 90 Pulse Ox 98 Oxygen Delivery Method Room Air MDM MDM MDM Narrative Medical decision making narrative: Patient is a 49-year-old female who presented to the emergency department chief complaint of abdominal pain and distention. On the differential diagnosis includes but not limited to intra-abdominal mass, intra-abdominal ascites, UTI. Once workup is obtained and reviewed she will be reevaluated. Patient states that she is on Dilaudid through palliative care. Patient is CBC reviewed showed no evidence of leukocytosis white blood count was 8.6, he was 10.3, platelet count of 83 she is chronically thrombocytopenic. Patient sodium was 133, potassium normal at 2.7, creatinine 0.94. Patient's total bilirubin elevated 2.89 this is chronically elevated, AST and ALT were 90 and 59 respectively these are also chronically elevated. Patient lipase was noted to be normal 35, urinalysis reviewed showed no evidence of infection. Patient CT ab pelvis with IV contrast showed a 2 mm obstructing stone at the right UVJ causing moderate right hydronephrosis liver steatosis splenomegaly and a large amount of ascites. I went back in and discussed the results with the patient and offered her admission for paracentesis and likely Tuesday however she states that she wants to go home and will follow-up with her palliative care team for a paracentesis. She is advised to return with worsening symptoms or any concerns. She is agreeable this plan all course concerns answered she was discharged home in stable condition Lab Data Labs: Laboratory Results - last 24 hr 08/10/25 08/10/25 11:53 11:58 WBC 8.6 RBC 3.69 L Hgb 10.3 L Hct 31.9 L MCV 86.4 MCH 27.9 MCHC 32.3 RDW Std Deviation 52.2 H RDW Coeff of Katalina 16.7 H Plt Count 83 L MPV 10.8 Immature Gran % (Auto) 0.600 Neut % (Auto) 61.1 Lymph % (Auto) 20.5 Floyd % (Auto) 12.7 H Eos % (Auto) 4.5 Baso % (Auto) 0.6 Absolute Neuts (auto) 5.2 Absolute Lymphs (auto) 1.76 Nucleated RBC % 0 Sodium 133 Potassium 3.7 Chloride 102 Carbon Dioxide 23.8 Anion Gap 7 BUN 8 Creatinine 0.94 Estim Creat Clear Calc 83.65 Est GFR (MDRD) Non-Af 74 BUN/Creatinine Ratio 8.5 L Glucose 106 H Calcium 9.1 Total Bilirubin 2.89 H AST 90 H ALT 59 H Alkaline Phosphatase 168 H Total Protein 7.2 Albumin 3.1 L Globulin 4.0 Albumin/Globulin Ratio 0.8 L Lipase 35 Urine Color Yellow Urine Clarity Clear Urine pH 6.0 Ur Specific Foster 1.015 Urine Protein Negative Urine Glucose (UA) Normal Urine Ketones Negative Urine Occult Blood 25 H Urine Nitrite Negative Urine Bilirubin Negative Urine Urobilinogen Normal Ur Leukocyte Esterase Negative Urine RBC 0-5 SEEN Urine WBC 0 SEEN Ur Squamous Epith Cells 0-5 SEEN Urine Bacteria 0 SEEN Urine Mucus 0 SEEN Radiography Diagnostic Testing: Clinical Impression(s) from Imaging Studies Abdomen/Pelvis CT 08/10/25 11:44 IMPRESSION: A 2 mm obstructing stone at the right ureteropelvic junction causing moderate right hydronephrosis. Liver steatosis, splenomegaly and ascites. Reading Location[facility] Discharge Plan Triage Chief Complaint: Abd Pain ED Provider: Eddie Newman Dx/Rx/DC Orders Clinical Impression: Abdominal pain, Abdominal distension, Ascites, Hepatitis C, chronic, Cirrhosis of liver, Thrombocytopenia Prescriptions: No Action trazodone 50 mg tablet 100 mg PO QHS PRN (Reason: sleep) sofosbuvir-velpatasvir [Epclusa] 400-100 mg tablet 1 tab PO QDAY 168 Days Qty: 168 0RF famotidine [Pepcid] 20 mg tablet 20 mg PO .evening PRN (Reason: heart burn) 30 Days Qty: 30 5RF gabapentin 300 mg capsule 300 mg PO TID Patient Comments: am buspirone 7.5 mg tablet 7.5 mg PO TID aripiprazole 5 mg tablet 5 mg PO DAILY Patient Comments: am ramelteon 8 mg tablet 8 mg PO QHS Patient Comments: take 30min prior to bedtime cholecalciferol (vitamin D3) 50 mcg (2,000 unit) capsule 50 mcg PO DAILY Patient Comments: am desvenlafaxine succinate 25 mg tablet extended release 24 hr 25 mg PO DAILY Patient Comments: am Rx Instructions: take with 50mg tablet to =75mg topiramate 50 mg tablet 50 mg PO DAILY Patient Comments: am desvenlafaxine succinate 50 mg tablet extended release 24 hr 50 mg PO DAILY Patient Comments: am Rx Instructions: take with 25mg tab to = 75mg lidocaine [Lidoderm] 5 % adhesive patch,medicated 1 patch topical DAILY PRN (Reason: pain) 3 Days Qty: 3 0RF Rx Instructions: leave on most painful area for up to 12 hrs hydromorphone 2 mg tablet 2 mg PO 4X/DAY pantoprazole 40 mg tablet,delayed release (DR/EC) 40 mg PO DAILY doxycycline hyclate 100 mg tablet 100 mg PO BID lactulose 10 gram/15 mL solution 10 g PO TID PRN (Reason: stomach upset) Qty: 3000 0RF Xifaxan 550 mg tablet 550 mg PO BID 30 Days Qty: 60 6RF ursodiol 500 mg tablet 500 mg PO TID 30 Days Qty: 90 5RF Patient Comments: am furosemide [Lasix] 40 mg tablet 40 mg PO DAILY Qty: 30 0RF Rx Instructions: start on 04/14/24 spironolactone 100 mg tablet 100 mg PO DAILY 30 Days Qty: 30 2RF bisacodyl [Dulcolax (bisacodyl)] 10 mg suppository 10 mg ME DAILY PRN (Reason: constipation) Qty: 30 1RF Primary Care Provider: Eyad Saeed Referrals: Eyad Saeed, [employer] [Primary Care Provider, [facility]] Activity Restrictions/Additional Instructions: Follow-up with your doctor in outpatient setting. Have them schedule a paracentesis as you have a large amount of fluid in your abdomen. Return with worsening symptoms or any other concerns Print Language: Danish Disposition Disposition: Home, Self Care
[2025-08-10 12:01] LABS: Hematocrit 31.9 % (37-47); Hemoglobin 10.3 g/dL (12.0-15.0); Immature Granulocytes Count 0.050 X10^3/uL (0.0-0.0); Mean Corp Hgb Conc 32.3 g/dL (32-36); Mean Corpuscular Volume 86.4 fL (81-99); Mean Platelet Vol. 10.8 fl (6.2-12.0); NRBC Flagged by Analyzer 0 % (0-5); POSITIVE COUNT YES; Platelet Count 83 K/mm3 (150-450); RBC Distribution Width CV 16.7 % (11.6-14.6); RBC Distribution Width SD 52.2 fl (35.1-43.9); Red Blood Count 3.69 M/mm3 (4.2-5.4); White Blood Count 8.6 K/mm3 (4.4-11.0)
[2025-08-10 12:07] LABS: Mucous, Urine 0 SEEN /hpf (<or=2+)
[2025-08-10] MEDS: 0.9% Normal Saline (1000mL) 1,000 ML 999 ML IV (12:09)
--- OUTSIDE RECORDS SUMMARY | 2025-08-10 12:10 | XMS RPT_ITS | CCD ---
Author Organization [facility] Care Team Providers Care Rigging Man Name Role Phone SHONNA SANCHEZJANAY RENAY Unavailable Unav ailable RENAY BENTLEY Unavailable Unav ailable Dacia Acosta MD Primary Care Provider Dacia Acosta MD Primary Care Provider Dr. Dacia Acosta Primary Care Provider [phone] Dr. Pedrito Rosario Emergency Provider Dr. Sowmya Mirza Admit Provider Dr. Sowmya Mirza Other Provider Dr. Son Adams Other Provider Jim GAMEZ, CONCHIS Ewing Attending Provider Dacia Acosta MD Primary Care Provider Dr. Dacia Acosta Primary Care Provider Dr. Pedrito Rosario Emergency Provider Dr. Sowmya Mirza Admit Provider Dr. Sowmya Mirza Other Provider Dr. Son Adams Attending Provider Dr. Son Adams Other Provider Dr. Dacia Acosta Referring Provider Dr. Marcelina Foster Attending Provider [phone] FriendDr. Kumar Other Provider Elderbrock MD, Dacia D Primary Care Provider Dr. Dacia Acosta Primary Care Provider [phone] Dr. Darius Rosales Emergency Provider Dr. Gurinder Mittal Admit Provider Dr. Gurinder Mittal Other Provider Friend, Dr. Kumar Other Provider Dr. Michi Forbes Attending Provider Dr. Michi Forbes Other Provider CONCHIS Denton Attending Provider Dr. Dacia Acosta Primary Care Provider Dr. Darius Rosales Emergency Provider [phone] Dr. Gurinder Mittal Admit Provider Aganita, Dr. Fairchild Other Provider Friend, Dr. Kumar Other Provider Dr. Michi Forbes Attending Provider Dr. Michi Forbes Other Provider CONCHIS Denton Attending Provider Dr. Dacia Acosta Referring Provider Dr. Son Adams Attending Provider Dr. Son Adams Referring Provider Dr. Son Adams Other Provider Unavailable Primary Care Provider Unavailabl e ANDERSON BOBO Consulting Unavailable CINDI SALAS Admitting Unavailable SAIMA LIM Attending Unavailable Dr. Elena Hoff Admit Provider Luis Eduardo, Dr. Elena Higgins Attending Provider Luis Eduardo, Dr. Elena Higgins Other Provider Dr. Oscar Pantoja Attending Provider Unavailable Dr. Oscar Pantoja Other Provider Unavailable Luis Eduardo, Dr. Elena Higgins Admit Provider Dr. Elena Hoff Other Provider Dr. Dacia Acosta Primary Care Provider Dr. Darius Rosales Emergency Provider Dr. Gurinder Mittal Admit Provider Dr. Gurinder Mittal Other Provider Vern, Dr. Kumar Other Provider Dr. Michi Forbes Attending Provider Dr. Michi Forbes Other Provider [facility] Comment on above: Performed By: #### L [id number], DRQ2286, DVQ1080, XHM2143, GMA1385 ####[facility] [address] [place] [address] OTHER 0 Normal [facility] Comment on above: Performed By: #### L GP0603, [id number], TXX6065, AOG4204, JHL5073 ####[facility] [address] [place] [address] MRCP Abdomen WO and W contra st Tonya 12-12-2024 [facility] [address] [place] [address] Radiology PATIENT NAME: Carolina Hightower MR#: [id number] PROCEDURE DATE: 12/12/2024 ROOM#: [id number] ORDERING PHYS: Lyssa Farrell PROCEDURE: MRI ABDOMEN [...] Zimmer MD jp TD: 12/12/2024 JOB #: [id number] Radiology Page 1 of 1 COPY [facility] Saud Pierre MD - 12/12/2024 [place] [address] Radiology PATIENT NAME: Carolina Hightower MR#: [id number] PROCEDURE DATE: 12/12/2024 ROOM#: [id number] ORDERING PHYS: Lyssa Farrell PROCEDURE: MRI ABDOMEN [...] Zimmer MD jp TD: 12/12/2024 JOB #: [id number] Radiology Page 1 of 1 COPY [facility] Radiology Study observation (narrative) [facility] CBCon 12-11-2024 Basophils (Bld) [#/Vol] 0.1 10*3/uL 0.0 - 0.1 10*3/uL [facility] Basophils/100 WBC (Bld) 1.4 % High 0.0 - 1.0 % [facility] Differential cell count method Nom (Bld) Auto [facility] Eosinophils (Bld) [#/Vol] 0.2 10*3/uL 0.0 - 0.5 10*3/uL [facility] Eosinophils/100 WBC (Bld) 4.2 % 0.3 - 5.0 % [facility] Erythrocyte distribution width (RBC) [Ratio] 17.7 % 10.7 - 18.7 % [facility] Hematocrit (Bld) [Volume fraction] 34.3 % 33.0 - 51.0 % [facility] Hemoglobin (Bld) [Mass/Vol] 11.8 g/dL Low 12.0 - 16.0 g/dL [facility] Interpretation and review of laboratory results Abnormal [facility] Lymphocytes (Bld) [#/Vol] 1.2 10*3/uL 1.1 - 5.0 10*3/uL [facility] Lymphocytes/100 WBC (Bld) 28.4 % 24.0 - 44.0 % [facility] MCH (RBC) [Entitic mass] 32.5 pg 26.0 - 34.0 pg [facility] MCHC (RBC) [Mass/Vol] 34.3 g/dL 32.0 - 36.0 g/dL [facility] MCV (RBC) [Entitic vol] 94.6 fL 80.0 - 100.0 fL [facility] Monocytes (Bld) [#/Vol] 0.4 10*3/uL 0.0 - 1.4 10*3/uL [facility] Monocytes/100 WBC (Bld) 9.2 % 2.1 - 13.3 % [facility] Neutrophils (Bld) [#/Vol] 2.4 10*3/uL 1.5 - 8.5 10*3/uL [facility] Neutrophils/100 WBC (Bld) 56.8 % 35.0 - 66.0 % [facility] Platelet mean volume (Bld) [Entitic vol] 9.4 fL 6.5 - 10.0 fL [facility] Platelets (Bld) [#/Vol] 52 10*3/uL Low 150 - 450 10*3/uL [facility] RBC (Bld) [#/Vol] 3.62 10*6/uL Low 4.00 - 5.2 0 10*6/uL [facility] WBC (Bld) [#/Vol] 4.3 10*3/uL Low 4.5 - 11.0 10*3/uL [facility] CBC w/ Differentialon 2024 Basophil Abs. 0.1 10*3/uL Normal 0.0-0.1 [facility] Comment on above: Performed By: #### L [id number] ####[place] [address] Basophils/100 WBC (Bld) 1.4 % High 0.0-1.0 [facility] Comment on above: Performed By: #### L [id number] ####[place] [address] Differential type Auto Normal [facility] Comment on above: Performed By: #### L [id number] ####[place] [address] Eosinophils (Bld) [#/Vol] 0.2 10*3/uL Normal 0.0-0.5 [facility] Comment on above: Performed By: #### L [id number] ####[place] [address] Eosinophils/100 WBC (Bld) 4.2 % Normal 0.3-5.0 [facility] Comment on above: Performed By: #### L ZZ2740 ####[place] [address] Erythrocyte distribution width (RBC) [Ratio] 17.7 % Normal 10.7-18.7 [facility] Comment on above: Performed By: #### L YQ6228 ####[place] [address] Hematocrit (Bld) [Volume fraction] 34.3 % Normal 33.0-51.0 [facility] Comment on above: Performed By: #### L [id number] ####[place] [address] Hemoglobin (Bld) [Mass/Vol] 11.8 g/dL Low 12.0-16.0 [facility] Comment on above: Performed By: #### L [id number] ####BABATUNDE [address] [address] Lymphocytes (Bld) [#/Vol] 1.2 10*3/uL Normal 1.1-5.0 [facility] Comment on above: Performed By: #### L GX4151 ####[address] [address] Lymphocytes/100 WBC (Bld) 28.4 % Normal 24.0-44.0 [facility] Comment on above: Performed By: #### L [id number] ####[place] [address] MCH (RBC) [Entitic mass] 32.5 pg Normal 26.0-34.0 [facility] Comment on above: Performed By: #### L [id number] ####[place] [address] MCHC (RBC) [Mass/Vol] 34.3 g/dL Normal 32.0-36.0 [facility] Comment on above: Performed By: #### L GO3563 ####[place] [address] MCV (RBC) [Entitic vol] 94.6 fL Normal 80.0-100.0 [facility] Comment on above: Performed By: #### L [id number] ####BABATUNDE [address] [address] Monocytes (Bld) [#/Vol] 0.4 10*3/uL Normal 0.0-1.4 [facility] Comment on above: Performed By: #### L [id number] ####BABATUNDE [address] [address] Monocytes/100 WBC (Bld) 9.2 % Normal 2.1-13.3 [facility] Comment on above: Performed By: #### L [id number] ####[place] [id number] [place] [address] Neutrophils, Abs. 2.4 10*3/uL Normal 1.5-8.5 [facility] Comment on above: Performed By: #### L AR5626 ####BABATUNDE [address] [address] Neutrophils/100 WBC (Bld) 56.8 % Normal 35.0-66.0 [facility] Comment on above: Performed By: #### L [id number] ####[place] [address] Platelet Cnt 52 10*3/uL Low 150-450 [facility] Comment on above: Performed By: #### L GR6475 ####[place] [address] Platelet mean volume (Bld) [Entitic vol] 9.4 fL Normal 6.5-10.0 [facility] Comment on above: Performed By: #### L RQ5230 ####[place] [address] RBC (Bld) [#/Vol] 3.62 10*6/uL Low 4.00-5.20 [facility] Comment on above: Performed By: #### L [id number] ####[place] [address] WBC (Bld) [#/Vol] 4.3 10*3/uL Low 4.5-11.0 [facility] Comment on above: Performed By: #### L [id number] ####[place] [address] COMPREHENSIVE METABOLIC PANE [place] 12-11-2024 Albumin [Mass/Vol] 2.6 g/dL Low 3.2-5.0 [facility] Comment on above: Performed By: #### L [id number] ####[place] [address] Albumin/Globulin [Mass ratio] 0.8 {ratio} Normal [facility] Comment on above: Performed By: #### L [id number] ####[place] [address] ALP [Catalytic activity/Vol] 113 U/L Normal 42-121 [facility] Comment on above: Performed By: #### L [id number] ####[place] [address] ALT [Catalytic activity/Vol] 65 U/L High 10-60 [facility] Comment on above: Performed By: #### L [id number] ####[place] [address] Anion gap [Moles/Vol] 5 mmol/L Normal [facility] Comment on above: Performed By: #### L HY4572 ####[place] [address] AST [Catalytic activity/Vol] 112 U/L High 10-42 [facility] Comment on above: Performed By: #### L KQ4993 ####[place] [address] B/C 11 Normal 10-20 [facility] Comment on above: Performed By: #### L HW7151 ####[place] [address] Bilirubin.direct [Mass/Vol] 1.8 mg/dL High 0.2-1.0 [facility] Comment on above: Performed By: #### L OB1067 ####[place] [address] Calcium [Mass/Vol] 8.3 mg/dL Low 8.5-10.5 [facility] Comment on above: Performed By: #### L OL3540 ####[place] [address] Chloride [Moles/Vol] 111 mmol/L Normal 101-111 [facility] Comment on above: Performed By: #### L LC1302 ####[place] [address] CO2 [Moles/Vol] 22 mmol/L Normal 21-31 [facility] Comment on above: Performed By: #### L [id number] ####BABATUN[place] [address] [address] Creatinine [Mass/Vol] 0.9 mg/dL Normal 0.4-1.0 [facility] Comment on above: Performed By: #### L ED4382 ####[place] [address] GFR/1.73 sq M.predicted MDRD (S/P/Bld) [Vol rate/Area] 66 mL/min/{1.73_m2} Normal [facility] Comment on above: Result Comment: *The estimated Glomerular Filtration Rate(EGFR) may not be accurate for children under the age of 18 yrs. To estimate the GFR for -Americans multiply the result provided by 1.21.Stage 1 90 mL/min or greaterStage 2 60-89 mL/minStage 3 30-59 mL/minStage 4 15-29 mL/minStage 5 14 mL/min or less Performed By: #### L [id number] ####BABATUN[place] [address] [address] Glucose [Mass/Vol] 83 mg/dL Normal 70-110 [facility] Comment on above: Performed By: #### L [id number] ####BABATUNDE [address] [address] Osmolality [Osmolality] 274 mosm/kg Normal 266-309 [facility] Comment on above: Performed By: #### L CS0147 ####BABATUNDE [address] [address] Potassium [Moles/Vol] 3.9 mmol/L Normal 3.6-5.0 [facility] Comment on above: Performed By: #### L [id number] ####BABATUNDE [address] [address] Protein [Mass/Vol] 5.8 g/dL Low 6.1-7.8 [facility] Comment on above: Performed By: #### L [id number] ####BABATUNDE [address] [place] [address] Sodium [Moles/Vol] 138 mmol/L Normal 135-145 [facility] Comment on above: Performed By: #### L [id number] ####[facility] [address] [place] [address] Urea nitrogen [Mass/Vol] 10 mg/dL Normal 2-32 [facility] Comment on above: Performed By: #### L RX3640 ####[facility] [address] [place] [id number] Comprehensive Metabolic Pane merritt 12-11-2024 Albumin [Mass/Vol] 2.6 g/dL Low 3.2 - 5.0 g/dL [facility] Albumin/Globulin [Mass ratio] 0.8 {ratio} [facility] ALP [Catalytic activity/Vol] 113 U/L 42 - 121 [iU]/L [facility] ALT [Catalytic activity/Vol] 65 U/L High 10 - 60 [iU]/L [facility] Anion gap [Moles/Vol] 5 mmol/L [facility] AST [Catalytic activity/Vol] 112 U/L High 10 - 42 [iU]/L [facility] Bilirubin [Mass/Vol] 1.8 mg/dL High 0.2 - 1 .0 mg/dL [facility] Calcium [Mass/Vol] 8.3 mg/dL Low 8.5 - 10. 5 mg/dL [facility] Chloride [Moles/Vol] 111 mmol/L 101 - 1 11 mmol/L [facility] CO2 [Moles/Vol] 22 mmol/L 21 - 31 mmol/L [facility] Creatinine [Mass/Vol] 0.9 mg/dL 0.4 - 1.0 mg/dL [facility] GFR/1.73 sq M.predicted MDRD (S/P/Bld) [Vol rate/Area] 66 mL/min/{1.73_m2} [facility] Comment on above: *The estimated Glome rular [...] [Mass/Vol] 83 mg/dL 70 - 110 mg/dL [facility] Interpretation and review of laboratory results Abnormal [facility] Osmolality Calc [Osmolality] 274 266 - 309 [facility] Potassium [Moles/Vol] 3.9 mmol/L 3.6 - 5.0 mmol/L [facility] Protein [Mass/Vol] 5.8 g/dL Low 6.1 - 7.8 g/dL [facility] Sodium [Moles/Vol] 138 mmol/L 135 - 145 mmol/L [facility] Urea nitrogen [Mass/Vol] 10 mg/dL 2 - 32 mg/dL [facility] Urea nitrogen/Creatinine [Mass ratio] 11 mg/mg 10 - 20 [facility] MRI ABDOMEN W WO CONTRAST MR CPon 12-11-2024 MRI ABDOMEN W WO CONTRAST MRCP Normal [facility] XR LUMBAR SPINE AP AND LATER Ale 12-11-2024 XR LUMBAR SPINE AP AND LATERAL Normal [facility] XR Lumbar spine AP and Later [facility] 12-11-2024 [facility] [address] [place] [address] Radiology PATIENT NAME: Carolina Hightower MR#: [id number] PROCEDURE DATE: 12/11/2024 ROOM#: [id number] ORDERING PHYS: Isabella Ch Clinical history: Low [...] Parmar MD dd TD: 12/11/2024 JOB #: [id number] Radiology Page 1 of 1 COPY [facility] Bill Vasques MD - 12/11/2024 [facility] [address] [place] [address] Radiology PATIENT NAME: Carolina Hightower MR#: [id number] PROCEDURE DATE: 12/11/2024 ROOM#: [facility] ORDERING PHYS: Isabella Ch Clinical history: [...] Parmar MD dd TD: 12/11/2024 JOB #: [id number] Radiology Page 1 of 1 COPY [facility] Radiology Study observation (narrative) [facility] XR Lumbar spine AP and Later alOrdered By: Bill Vasques on 12-11-2024 [facility] Work Phone: AFP Serum Tumor Markeron AFP [Mass/Vol] 41.23 ng/mL Abnormal NINF - 6.00 ng/mL [facility] Comment on above: * Reference values a [...] Interpretation and review of laboratory results Abnormal [facility] AFP TUMOR MARKER, Son 2024 AFP TUMOR MARKER, S 41.23 ng/mL Abnormal < 6.00 [facility] Comment on above: Result Comment: * [...] of malignant disease. Performed By: #### L [id number] ####[place] [address] AMMONIAon 12-10-2024 Ammonia (P) [Moles/Vol] 78 umol/L High 11-50 [facility] Comment on above: Performed By: #### L [id number], [id number] ####[place] [address] Ammoniaon 12-10-2024 Ammonia (P) [Moles/Vol] 78 umol/L High 11 - 50 umol/L [facility] Interpretation and review of laboratory results Abnormal [facility] BASIC METABOLIC PANELon 11-24 Anion gap [Moles/Vol] 4 mmol/L Normal [facility] Comment on above: Performed By: #### L WP9904, PLD8203, JEB2847 ####[place] [address] B/C 7 Low 10-20 [facility] Comment on above: Performed By: #### L WQ1115, VHI0791, QXQ8183 ####[place] [address] Calcium [Mass/Vol] 8.7 mg/dL Normal 8.5-10.5 [facility] Comment on above: Performed By: #### L BB0024, JXM6915, GKB3971 ####[place] [address] Chloride [Moles/Vol] 111 mmol/L Normal 101-111 [facility] Comment on above: Performed By: #### Mustapha NR8344, OLJ0479, XHF8374 ####[place] [address] CO2 [Moles/Vol] 20 mmol/L Low 21-31 [facility] Comment on above: Performed By: #### Mustapha [id number], NQL7070, LNN5905 ####[place] [address] Creatinine [Mass/Vol] 0.9 mg/dL Normal 0.4-1.0 [facility] Comment on above: Performed By: #### Mustapha CASH6, OSD8295, KSP9403 ####[place] [address] GFR/1.73 sq M.predicted MDRD (S/P/Bld) [Vol rate/Area] 66 mL/min/{1.73_m2} Normal [facility] Comment on above: Result Comment: *The estimated Glomerular Filtration Rate(EGFR) may not be accurate for children under the age of 18 yrs. To estimate the GFR for -Americans multiply the result provided by 1.21.Stage 1 90 mL/min or greaterStage 2 60-89 mL/minStage 3 30-59 mL/minStage 4 15-29 mL/minStage 5 14 mL/min or less Performed By: #### Mustapha MJ0791, BAE9954, MMR3841 ####[place] [address] Glucose [Mass/Vol] 90 mg/dL Normal 70-110 [facility] Comment on above: Performed By: #### Mustapha ER5666, TBB2742, LNV2867 ####[place] [address] Osmolality [Osmolality] 267 mosm/kg Normal 266-309 [facility] Comment on above: Performed By: #### Mustapha JY9879, HNG6872, VRP8459 ####[place]ABAT[place] [address] [address] Potassium [Moles/Vol] 3.9 mmol/L Normal 3.6-5.0 [facility] Comment on above: Performed By: #### L JC4086, DQI7558, MCM3198 ####[facility] [address] [place] [address] Sodium [Moles/Vol] 135 mmol/L Normal 135-145 [facility] Comment on above: Performed By: #### L JF5999, LDQ4897, OZW4558 ####[facility] [address] [place] [address] Urea nitrogen [Mass/Vol] 6 mg/dL Normal 2-32 [facility] Comment on above: Performed By: #### L YC1081, GSA3484, UVM3580 ####[facility] [address] [place] [address] BLOOD CULTUREon 12-10-2024 Bacteria identified Cx Nom (Bld) Bacteria identified in Blood by Culture BLOOD CULTURE: No growth @ 24 hours. Normal [facility] Comment on above: Performed By: #### L [id number] ####[facility] [address] [place] [address] Basic Metabolic Panelon 11-24 Anion gap [Moles/Vol] 4 mmol/L [facility] Calcium [Mass/Vol] 8.7 mg/dL 8.5 - 10. 5 mg/dL [facility] Chloride [Moles/Vol] 111 mmol/L 101 - 1 11 mmol/L [facility] CO2 [Moles/Vol] 20 mmol/L Low 21 - 31 mmol/L [facility] Creatinine [Mass/Vol] 0.9 mg/dL 0.4 - 1.0 mg/dL [facility] GFR/1.73 sq M.predicted MDRD (S/P/Bld) [Vol rate/Area] 66 mL/min/{1.73_m2} [facility] Comment on above: *The estimated Glome rular [...] [Mass/Vol] 90 mg/dL 70 - 110 mg/dL [facility] Interpretation and review of laboratory results Abnormal [facility] Osmolality Calc [Osmolality] 267 266 - 309 [facility] Potassium [Moles/Vol] 3.9 mmol/L 3.6 - 5.0 mmol/L [facility] Sodium [Moles/Vol] 135 mmol/L 135 - 145 mmol/L [facility] Urea nitrogen [Mass/Vol] 6 mg/dL 2 - 32 mg/dL [facility] Urea nitrogen/Creatinine [Mass ratio] 7 mg/mg Low 10 - 20 [facility] CBCon 12-10-2024 Basophils (Bld) [#/Vol] 0.0 10*3/uL 0.0 - 0.1 10*3/uL [facility] Basophils/100 WBC (Bld) 1.0 % 0.0 - 1.0 % [facility] Differential cell count method Nom (Bld) Auto [facility] Eosinophils (Bld) [#/Vol] 0.3 10*3/uL 0.0 - 0.5 10*3/uL [facility] Eosinophils/100 WBC (Bld) 6.2 % High 0.3 - 5.0 % [facility] Erythrocyte distribution width (RBC) [Ratio] 18.0 % 10.7 - 18.7 % [facility] Hematocrit (Bld) [Volume fraction] 35.1 % 33.0 - 51.0 % [facility] Hemoglobin (Bld) [Mass/Vol] 12.2 g/dL 12.0 - 16.0 g/dL [facility] Interpretation and review of laboratory results Abnormal [facility] Lymphocytes (Bld) [#/Vol] 1.3 10*3/uL 1.1 - 5.0 10*3/uL [facility] Lymphocytes/100 WBC (Bld) 27.3 % 24.0 - 44.0 % [facility] MCH (RBC) [Entitic mass] 32.3 pg 26.0 - 34.0 pg [facility] MCHC (RBC) [Mass/Vol] 34.7 g/dL 32.0 - 36.0 g/dL [facility] MCV (RBC) [Entitic vol] 93.0 fL 80.0 - 100.0 fL [facility] Monocyte distribution width Auto (Bld) [Entitic vol] 18.8 0.0 - 20.0 [facility] Monocytes (Bld) [#/Vol] 0.5 10*3/uL 0.0 - 1.4 10*3/uL [facility] Monocytes/100 WBC (Bld) 10.2 % 2.1 - 13.3 % [facility] Neutrophils (Bld) [#/Vol] 2.6 10*3/uL 1.5 - 8.5 10*3/uL [facility] Neutrophils/100 WBC (Bld) 55.3 % 35.0 - 66.0 % [facility] Platelet mean volume (Bld) [Entitic vol] 9.5 fL 6.5 - 10.0 fL [facility] Platelets (Bld) [#/Vol] 55 10*3/uL Low 150 - 450 10*3/uL [facility] RBC (Bld) [#/Vol] 3.77 10*6/uL Low 4.00 - 5.2 0 10*6/uL [facility] WBC (Bld) [#/Vol] 4.7 10*3/uL 4.5 - 11.0 10*3/uL [facility] CBC w/ Differentialon 2024 Basophil Abs. 0.0 10*3/uL Normal 0.0-0.1 [facility] Comment on above: Performed By: #### L [id number] ####[facility] [address] [place] [address] Basophils/100 WBC (Bld) 1.0 % Normal 0.0-1.0 [facility] Comment on above: Performed By: #### L LQ6730 ####[place] [address] Differential type Auto Normal [facility] Comment on above: Performed By: #### L [id number] ####[place] [address] Eosinophils (Bld) [#/Vol] 0.3 10*3/uL Normal 0.0-0.5 [facility] Comment on above: Performed By: #### L [id number] ####[place] [address] Eosinophils/100 WBC (Bld) 6.2 % High 0.3-5.0 [facility] Comment on above: Performed By: #### L [id number] ####[place] [address] Erythrocyte distribution width (RBC) [Ratio] 18.0 % Normal 10.7-18.7 [facility] Comment on above: Performed By: #### L ZV3527 ####[place] [address] Hematocrit (Bld) [Volume fraction] 35.1 % Normal 33.0-51.0 [facility] Comment on above: Performed By: #### L KJ3821 ####[place] [address] Hemoglobin (Bld) [Mass/Vol] 12.2 g/dL Normal 12.0-16.0 [facility] Comment on above: Performed By: #### L SV8927 ####[place] [address] Lymphocytes (Bld) [#/Vol] 1.3 10*3/uL Normal 1.1-5.0 [facility] Comment on above: Performed By: #### L DE3835 ####[place] [address] Lymphocytes/100 WBC (Bld) 27.3 % Normal 24.0-44.0 [facility] Comment on above: Performed By: #### L [id number] ####[place] [address] MCH (RBC) [Entitic mass] 32.3 pg Normal 26.0-34.0 [facility] Comment on above: Performed By: #### L PZ6305 ####[place] [address] MCHC (RBC) [Mass/Vol] 34.7 g/dL Normal 32.0-36.0 [facility] Comment on above: Performed By: #### L CK3483 ####[place] [address] MCV (RBC) [Entitic vol] 93.0 fL Normal 80.0-100.0 [facility] Comment on above: Performed By: #### L EF4319 ####[place] [address] MDW 18.8 Normal 0.0-20.0 [facility] Comment on above: Performed By: #### L CU0197 ####[place] [address] Monocytes (Bld) [#/Vol] 0.5 10*3/uL Normal 0.0-1.4 [facility] Comment on above: Performed By: #### L XT8252 ####[place] [address] Monocytes/100 WBC (Bld) 10.2 % Normal 2.1-13.3 [facility] Comment on above: Performed By: #### L GS8245 ####[place] [address] Neutrophils, Abs. 2.6 10*3/uL Normal 1.5-8.5 [facility] Comment on above: Performed By: #### L KN2394 ####[place] [address] Neutrophils/100 WBC (Bld) 55.3 % Normal 35.0-66.0 [facility] Comment on above: Performed By: #### L QK7128 ####[place] [address] Platelet Cnt 55 10*3/uL Low 150-450 [facility] Comment on above: Performed By: #### L ZB4895 ####[place] [address] Platelet mean volume (Bld) [Entitic vol] 9.5 fL Normal 6.5-10.0 [facility] Comment on above: Performed By: #### L CP8922 ####[place] [address] RBC (Bld) [#/Vol] 3.77 10*6/uL Low 4.00-5.20 [facility] Comment on above: Performed By: #### L VY3026 ####[place] [address] WBC (Bld) [#/Vol] 4.7 10*3/uL Normal 4.5-11.0 [facility] Comment on above: Performed By: #### L GI4209 ####[place] [address] Basophil Abs. 0.0 10*3/uL Normal 0.0-0.1 [facility] Comment on above: Performed By: #### L IJ4558, NPX6328, GEO4098 ####[place] [address] Basophils/100 WBC (Bld) 0.9 % Normal 0.0-1.0 [facility] Comment on above: Performed By: #### L SM2283, TXN5747, FEI4228 ####[place] [address] Differential type Auto Normal [facility] Comment on above: Performed By: #### L JS5076, QSE8028, QJW8178 ####[place] [address] Eosinophils (Bld) [#/Vol] 0.3 10*3/uL Normal 0.0-0.5 [facility] Comment on above: Performed By: #### L RM8892, HMD2427, INW6215 ####[place] [address] Eosinophils/100 WBC (Bld) 5.9 % High 0.3-5.0 [facility] Comment on above: Performed By: #### L VK1614, HJC4266, UEX0819 ####[place] [address] Erythrocyte distribution width (RBC) [Ratio] 18.0 % Normal 10.7-18.7 [facility] Comment on above: Performed By: #### L PH4771, SAX6550, JVP2781 ####[place] [address] Hematocrit (Bld) [Volume fraction] 36.1 % Normal 33.0-51.0 [facility] Comment on above: Performed By: #### L HD7768, ALY8014, SHY6549 ####[place] [address] Hemoglobin (Bld) [Mass/Vol] 12.6 g/dL Normal 12.0-16.0 [facility] Comment on above: Performed By: #### L VM9684, HFN1560, UNB7168 ####[place] [address] Lymphocytes (Bld) [#/Vol] 1.4 10*3/uL Normal 1.1-5.0 [facility] Comment on above: Performed By: #### L OF3722, ECP1987, AQW9302 ####[place] [address] Lymphocytes/100 WBC (Bld) 26.4 % Normal 24.0-44.0 [facility] Comment on above: Performed By: #### L EA9372, ERT3687, NVU0525 ####[place] [address] MCH (RBC) [Entitic mass] 32.6 pg Normal 26.0-34.0 [facility] Comment on above: Performed By: #### L SZ4444, WSC7916, YDI9485 ####[place] [address] MCHC (RBC) [Mass/Vol] 35.0 g/dL Normal 32.0-36.0 [facility] Comment on above: Performed By: #### L JL4074, LNV4541, YOD8068 ####[place] [address] MCV (RBC) [Entitic vol] 93.2 fL Normal 80.0-100.0 [facility] Comment on above: Performed By: #### L TO4247, NCX3350, YOM1469 ####[place] [address] MDW 19.9 Normal 0.0-20.0 [facility] Comment on above: Performed By: #### L GV0892, XJH0546, NMY1333 ####[place] [address] Monocytes (Bld) [#/Vol] 0.5 10*3/uL Normal 0.0-1.4 [facility] Comment on above: Performed By: #### L HI8991, NCR7115, EMU7818 ####[place] [address] Monocytes/100 WBC (Bld) 9.8 % Normal 2.1-13.3 [facility] Comment on above: Performed By: #### L FS2563, KGR2308, OWJ2366 ####[place] [address] Neutrophils, Abs. 3.1 10*3/uL Normal 1.5-8.5 [facility] Comment on above: Performed By: #### L SF3103, CML6089, WLJ0217 ####[place] [address] Neutrophils/100 WBC (Bld) 57.0 % Normal 35.0-66.0 [facility] Comment on above: Performed By: #### L TN5945, ZGG1755, ZKR7501 ####[place] [address] Platelet Cnt 54 10*3/uL Low 150-450 [facility] Comment on above: Performed By: #### L BW3011, ORD3138, PSS3346 ####[address]AB[address] [address] Platelet mean volume (Bld) [Entitic vol] 9.5 fL Normal 6.5-10.0 [facility] Comment on above: Performed By: #### L YR8186, JOG6762, NWQ3557 ####[place] [address] RBC (Bld) [#/Vol] 3.87 10*6/uL Low 4.00-5.20 [facility] Comment on above: Performed By: #### L IZ1946, KVK4658, UVP3893 ####BABATUNDE [address] [address] WBC (Bld) [#/Vol] 5.4 10*3/uL Normal 4.5-11.0 [facility] Comment on above: Performed By: #### L YH5076, GJC5696, QEI1633 ####[place] [address] CBC w/Differentialon 025 Basophils (Bld) [#/Vol] 0.0 10*3/uL 0.0 - 0.1 10*3/uL [facility] Basophils/100 WBC (Bld) 0.9 % 0.0 - 1.0 % [facility] Differential cell count method Nom (Bld) Auto [facility] Eosinophils (Bld) [#/Vol] 0.3 10*3/uL 0.0 - 0.5 10*3/uL [facility] Eosinophils/100 WBC (Bld) 5.9 % High 0.3 - 5.0 % [facility] Erythrocyte distribution width (RBC) [Ratio] 18.0 % 10.7 - 18.7 % [facility] Hematocrit (Bld) [Volume fraction] 36.1 % 33.0 - 51.0 % [facility] Hemoglobin (Bld) [Mass/Vol] 12.6 g/dL 12.0 - 16.0 g/dL [facility] Interpretation and review of laboratory results Abnormal [facility] Lymphocytes (Bld) [#/Vol] 1.4 10*3/uL 1.1 - 5.0 10*3/uL [facility] Lymphocytes/100 WBC (Bld) 26.4 % 24.0 - 44.0 % [facility] MCH (RBC) [Entitic mass] 32.6 pg 26.0 - 34.0 pg [facility] MCHC (RBC) [Mass/Vol] 35.0 g/dL 32.0 - 36.0 g/dL [facility] MCV (RBC) [Entitic vol] 93.2 fL 80.0 - 100.0 fL [facility] Monocyte distribution width Auto (Bld) [Entitic vol] 19.9 0.0 - 20.0 [facility] Monocytes (Bld) [#/Vol] 0.5 10*3/uL 0.0 - 1.4 10*3/uL [facility] Monocytes/100 WBC (Bld) 9.8 % 2.1 - 13.3 % [facility] Neutrophils (Bld) [#/Vol] 3.1 10*3/uL 1.5 - 8.5 10*3/uL [facility] Neutrophils/100 WBC (Bld) 57.0 % 35.0 - 66.0 % [facility] Platelet mean volume (Bld) [Entitic vol] 9.5 fL 6.5 - 10.0 fL [facility] Platelets (Bld) [#/Vol] 54 10*3/uL Low 150 - 450 10*3/uL [facility] RBC (Bld) [#/Vol] 3.87 10*6/uL Low 4.00 - 5.2 0 10*6/uL [facility] WBC (Bld) [#/Vol] 5.4 10*3/uL 4.5 - 11.0 10*3/uL [facility] CKon 12-10-2024 CK [Catalytic activity/Vol] 100 U/L Normal 22-269 [facility] Comment on above: Performed By: #### L HO4196, OWW6385, WYM4482 ####[place] [address] CK [Catalytic activity/Vol] 100 U/L 22 - 269 [iU]/L [facility] COMPREHENSIVE METABOLIC PANE [place] 12-10-2024 Albumin [Mass/Vol] 2.7 g/dL Low 3.2-5.0 [facility] Comment on above: Performed By: #### L PQ4620 ####[place] [address] Albumin/Globulin [Mass ratio] 0.8 {ratio} Normal [facility] Comment on above: Performed By: #### L WB7077 ####[place] [address] ALP [Catalytic activity/Vol] 121 U/L Normal 42-121 [facility] Comment on above: Performed By: #### L GA1892 ####[place] [address] ALT [Catalytic activity/Vol] 67 U/L High 10-60 [facility] Comment on above: Performed By: #### L WV8627 ####[place] [address] Anion gap [Moles/Vol] 3 mmol/L Normal [facility] Comment on above: Performed By: #### L LX3290 ####[place] [address] AST [Catalytic activity/Vol] 109 U/L High 10-42 [facility] Comment on above: Performed By: #### L NF2300 ####[place] [address] B/C 9 Low 10-20 [facility] Comment on above: Performed By: #### L TN5743 ####[place] [address] Bilirubin.direct [Mass/Vol] 2.6 mg/dL High 0.2-1.0 [facility] Comment on above: Performed By: #### L GU6835 ####BABATUNDE [facility] [place] [address] Calcium [Mass/Vol] 8.6 mg/dL Normal 8.5-10.5 [facility] Comment on above: Performed By: #### L JS3532 ####BABATUNDE [address] [address] Chloride [Moles/Vol] 112 mmol/L High 101-111 [facility] Comment on above: Performed By: #### L NT1019 ####[place] [address] CO2 [Moles/Vol] 21 mmol/L Normal 21-31 [facility] Comment on above: Performed By: #### L HY4157 ####BABATUNDE [address] [address] Creatinine [Mass/Vol] 0.8 mg/dL Normal 0.4-1.0 [facility] Comment on above: Performed By: #### L CU1478 ####[place] [address] GFR/1.73 sq M.predicted MDRD (S/P/Bld) [Vol rate/Area] 76 mL/min/{1.73_m2} Normal [facility] Comment on above: Result Comment: *The estimated Glomerular Filtration Rate(EGFR) may not be accurate for children under the age of 18 yrs. To estimate the GFR for -Americans multiply the result provided by 1.21.Stage 1 90 mL/min or greaterStage 2 60-89 mL/minStage 3 30-59 mL/minStage 4 15-29 mL/minStage 5 14 mL/min or less Performed By: #### L IO7617 ####BABATUNDE [address] [address] Glucose [Mass/Vol] 82 mg/dL Normal 70-110 [facility] Comment on above: Performed By: #### L VL5697 ####BABATUNDE [address] [address] Osmolality [Osmolality] 269 mosm/kg Normal 266-309 [facility] Comment on above: Performed By: #### L FS6926 ####[place] [address] Potassium [Moles/Vol] 3.8 mmol/L Normal 3.6-5.0 [facility] Comment on above: Performed By: #### L TD4749 ####[place] [address] Protein [Mass/Vol] 5.9 g/dL Low 6.1-7.8 [facility] Comment on above: Performed By: #### L UF3293 ####[place] [address] Sodium [Moles/Vol] 136 mmol/L Normal 135-145 [facility] Comment on above: Performed By: #### L XV7675 ####[place] [address] Urea nitrogen [Mass/Vol] 7 mg/dL Normal 2-32 [facility] Comment on above: Performed By: #### L MD6461 ####BABATUNDE [address] [address] Albumin [Mass/Vol] 2.8 g/dL Low 3.2-5.0 [facility] Comment on above: Performed By: #### L QE1940, DOH3840, BPE5758, NFB2794 ####[place] [address] Albumin/Globulin [Mass ratio] 0.9 {ratio} Normal [facility] Comment on above: Performed By: #### L EF1658, ZYP0356, NNQ5876, ZEZ0236 ####[place] [address] ALP [Catalytic activity/Vol] 129 U/L High 42-121 [facility] Comment on above: Performed By: #### L HO7756, AIW2807, CPE8353, ZRD5356 ####[place] [address] ALT [Catalytic activity/Vol] 65 U/L High 10-60 [facility] Comment on above: Performed By: #### L LS5953, GYZ5624, KBQ8608, SRO8013 ####[place] [address] Anion gap [Moles/Vol] 3 mmol/L Normal [facility] Comment on above: Performed By: #### L GS0818, TBB7277, EZQ7812, LDK7738 ####[place] [address] AST [Catalytic activity/Vol] 111 U/L High 10-42 [facility] Comment on above: Performed By: #### L ZH7756, SPK6222, MUN6468, WHA7987 ####[place] [address] B/C 6 Low 10-20 [facility] Comment on above: Performed By: #### L PT6875, XLT2950, VWL7198, AZU6686 ####[place] [address] Bilirubin.direct [Mass/Vol] 2.4 mg/dL High 0.2-1.0 [facility] Comment on above: Performed By: #### L WH6601, OBB3528, FCT8966, YSN5721 ####[place] [address] Calcium [Mass/Vol] 8.7 mg/dL Normal 8.5-10.5 [facility] Comment on above: Performed By: #### L KZ4359, PWN4105, BZY4446, BJU6945 ####[place] [address] Chloride [Moles/Vol] 112 mmol/L High 101-111 [facility] Comment on above: Performed By: #### L XH0061, TIU2227, WWI0916, GAN0907 ####[place] [address] CO2 [Moles/Vol] 20 mmol/L Low 21-31 [facility] Comment on above: Performed By: #### L CU7418, ARD5179, SAQ5629, NSC0022 ####BABATUNDE [facility] [place] [address] Creatinine [Mass/Vol] 1.0 mg/dL Normal 0.4-1.0 [facility] Comment on above: Performed By: #### L VL7112, OAF5056, HHL0373, CCG9689 ####BABATUNDE [address] [address] GFR/1.73 sq M.predicted MDRD (S/P/Bld) [Vol rate/Area] 58 mL/min/{1.73_m2} Normal [facility] Comment on above: Result Comment: *The estimated Glomerular Filtration Rate(EGFR) may not be accurate for children under the age of 18 yrs. To estimate the GFR for -Americans multiply the result provided by 1.21.Stage 1 90 mL/min or greaterStage 2 60-89 mL/minStage 3 30-59 mL/minStage 4 15-29 mL/minStage 5 14 mL/min or less Performed By: #### L PX1417, AIO2149, BWD7573, PVB0736 ####BABATUNDE [address] [address] Glucose [Mass/Vol] 87 mg/dL Normal 70-110 [facility] Comment on above: Performed By: #### L VX3216, SMR3177, LIU9972, XNY1899 ####BABATUNDE [address] [address] Osmolality [Osmolality] 267 mosm/kg Normal 266-309 [facility] Comment on above: Performed By: #### L NO2203, PES1519, ISP3743, FLY6776 ####BABATUNDE [address] [address] Potassium [Moles/Vol] 3.9 mmol/L Normal 3.6-5.0 [facility] Comment on above: Performed By: #### L IX9685, XFL3234, IPL6831, HXR3419 ####BABATUNDE [address] [address] Protein [Mass/Vol] 5.9 g/dL Low 6.1-7.8 [facility] Comment on above: Performed By: #### L WN2026, DRA4433, NOH3134, JFG6624 ####[facility] [address] [place] [address] Sodium [Moles/Vol] 135 mmol/L Normal 135-145 [facility] Comment on above: Performed By: #### L XL5893, OIK4218, SWV6429, RWA7516 ####[facility] [address] [place] [address] Urea nitrogen [Mass/Vol] 6 mg/dL Normal 2-32 [facility] Comment on above: Performed By: #### L JA8429, VWW2224, SYN3922, CMJ1361 ####[facility] [address] [place] [address] Comprehensive Metabolic Pane merritt 12-10-2024 Albumin [Mass/Vol] 2.7 g/dL Low 3.2 - 5.0 g/dL [facility] Albumin/Globulin [Mass ratio] 0.8 {ratio} [facility] ALP [Catalytic activity/Vol] 121 U/L 42 - 121 [iU]/L [facility] ALT [Catalytic activity/Vol] 67 U/L High 10 - 60 [iU]/L [facility] Anion gap [Moles/Vol] 3 mmol/L [facility] AST [Catalytic activity/Vol] 109 U/L High 10 - 42 [iU]/L [facility] Bilirubin [Mass/Vol] 2.6 mg/dL High 0.2 - 1 .0 mg/dL [facility] Calcium [Mass/Vol] 8.6 mg/dL 8.5 - 10. 5 mg/dL [facility] Chloride [Moles/Vol] 112 mmol/L High 101 - 1 11 mmol/L [facility] CO2 [Moles/Vol] 21 mmol/L 21 - 31 mmol/L [facility] Creatinine [Mass/Vol] 0.8 mg/dL 0.4 - 1.0 mg/dL [facility] GFR/1.73 sq M.predicted MDRD (S/P/Bld) [Vol rate/Area] 76 mL/min/{1.73_m2} [facility] Comment on above: *The estimated Glome rular [...] [Mass/Vol] 82 mg/dL 70 - 110 mg/dL [facility] Interpretation and review of laboratory results Abnormal [facility] Osmolality Calc [Osmolality] 269 266 - 309 [facility] Potassium [Moles/Vol] 3.8 mmol/L 3.6 - 5.0 mmol/L [facility] Protein [Mass/Vol] 5.9 g/dL Low 6.1 - 7.8 g/dL [facility] Sodium [Moles/Vol] 136 mmol/L 135 - 145 mmol/L [facility] Urea nitrogen [Mass/Vol] 7 mg/dL 2 - 32 mg/dL [facility] Urea nitrogen/Creatinine [Mass ratio] 9 mg/mg Low 10 - 20 [facility] Albumin [Mass/Vol] 2.8 g/dL Low 3.2 - 5.0 g/dL [facility] Albumin/Globulin [Mass ratio] 0.9 {ratio} [facility] ALP [Catalytic activity/Vol] 129 U/L High 42 - 121 [iU]/L [facility] ALT [Catalytic activity/Vol] 65 U/L High 10 - 60 [iU]/L [facility] Anion gap [Moles/Vol] 3 mmol/L [facility] AST [Catalytic activity/Vol] 111 U/L High 10 - 42 [iU]/L [facility] Bilirubin [Mass/Vol] 2.4 mg/dL High 0.2 - 1 .0 mg/dL [facility] Calcium [Mass/Vol] 8.7 mg/dL 8.5 - 10. 5 mg/dL [facility] Chloride [Moles/Vol] 112 mmol/L High 101 - 1 11 mmol/L [facility] CO2 [Moles/Vol] 20 mmol/L Low 21 - 31 mmol/L [facility] Creatinine [Mass/Vol] 1.0 mg/dL 0.4 - 1.0 mg/dL [facility] GFR/1.73 sq M.predicted MDRD (S/P/Bld) [Vol rate/Area] 58 mL/min/{1.73_m2} [facility] Comment on above: *The estimated Glome rular [...] [Mass/Vol] 87 mg/dL 70 - 110 mg/dL [facility] Interpretation and review of laboratory results Abnormal [facility] Osmolality Calc [Osmolality] 267 266 - 309 [facility] Potassium [Moles/Vol] 3.9 mmol/L 3.6 - 5.0 mmol/L [facility] Protein [Mass/Vol] 5.9 g/dL Low 6.1 - 7.8 g/dL [facility] Sodium [Moles/Vol] 135 mmol/L 135 - 145 mmol/L [facility] Urea nitrogen [Mass/Vol] 6 mg/dL 2 - 32 mg/dL [facility] Urea nitrogen/Creatinine [Mass ratio] 6 mg/mg Low 10 - 20 [facility] FLUID CELL COUNTon 5 Character (U) Slt Hazy Normal [facility] Comment on above: Performed By: #### L OS1391, VYH2115, PCA4360, FUX5072, UNH9225 ####[facility] [address] [place] [address] Color (U) Yellow Normal [facility] Comment on above: Performed By: #### L IE8631, FIB0588, GFL1852, PRF8772, BJC9993 ####[place] [address] FLD COMMENT see below [facility] Comment on above: Result Comment: Refe rence ranges & other method performance specifications have not beenestablished for this body fluid type. The test result must be integratedinto the clinical context for interpretation. Performed By: #### L CQ6712, GIW7515, IAW0102, EPN4767, NDQ1584 ####[place] [address] RBC 1,023 uL [facility] Comment on above: Performed By: #### L FX9356, JJH3301, KVR4650, HBQ9482, XSU4598 ####[place] [address] SOURCE Ascites Normal [facility] Comment on above: Performed By: #### L MH5082, WGF6503, UKH4092, LKG7286, YEI7338 ####[place] [address] TOTAL NUC. CELLS 172 uL [facility] Comment on above: Result Comment: RESU LTS OF COUNT MAY BE INACCURATE IF SPECIMEN IS PARTIALLYCLOTTED OR EXHIBIT CELL CLUMPING. Performed By: #### L XO8417, GAV7655, TXQ7570, YKW8230, FEM4775 ####[place] [address] TUBE NUMBER Syringe [facility] Comment on above: Performed By: #### L BL2439, WGB7435, YXL5871, XOB2303, YDH9438 ####[place] [address] VOLUME 60.0 [facility] Comment on above: Performed By: #### L MU1676, FYH3909, RLV0704, DYF9597, LPB8261 ####[place] [address] FLUID CULTUREon 12-10-2024 FLUID CULTURE Bacteria identified in Body fluid by Culture FLUID CULTURE: No Growth - Preliminary Microscopic observation [Identifier] in Specimen by Gram stain GRAM STAIN SMEAR: Rare WBC'S. No organisms seen. Normal [facility] Comment on above: Performed By: #### L IU5650 ####[facility] [address] [place], [place] [address] Fingerstick Glucoseon 2024 Glucose [Mass/Vol] 81 mg/dL 70 - 110 mg/dL [facility] GLUCOSE, FLUIDon 12-10-2024 GLUCOSE, FLUID 94 mg/dL Normal [facility] Comment on above: Result Comment: Refe rence ranges & other method performance specifications have not beenestablished for this body fluid type. The test result must be integratedinto the clinical context for interpretation. Performed By: #### L JR6053, YJH5450, JUG7279, EVB0787, CDW2102 ####[place] [address] GLUCOSE, GLUCOMETERon 2024 Glucose [Mass/Vol] 81 mg/dL Normal 70-110 [facility] Comment on above: Performed By: #### L DD0808 ####[place] [address] Glucose Body Fluidon 025 Glucose (Body fld) [Mass/Vol] 94 mg/dL [facility] Comment on above: Reference ranges & o ther method performance specifications have not been established for this body fluid type. The test result must be integrated into the clinical context for interpretation. LACTIC ACIDon 12-10-2024 Lactate [Moles/Vol] 0.6 mmol/L Normal 0.5-1.9 [facility] Comment on above: Performed By: #### L TQ2894, EYU5706, JWU6010, RVM1164 ####[address] [address] LDH, FLUIDon 12-10-2024 LDH FLUID 44 [iU]/L Low 60-160 [facility] Comment on above: Performed By: #### L ZV1489, XIW6022, WKY6134, YFW9167, YJU2166 ####[facility] [place] [id number] LDH, Fluidon 12-10-2024 Interpretation and review of laboratory results Abnormal [facility] LDH (Body fld) [Catalytic activity/Vol] 44 [iU]/L Low 60 - 160 [iU]/L [facility] LIPASEon 12-10-2024 Lipase [Catalytic activity/Vol] 37 U/L Normal -82 [facility] Comment on above: Performed By: #### L EW6751, GKL0453, JUJ2431, SPE6337 ####[place] [id number] [place] [address] Lactic Acid, Venouson 2024 Lactate [Moles/Vol] 0.6 mmol/L 0.5 - 1. 9 mmol/L [facility] Lipaseon 12-10-2024 Lipase [Catalytic activity/Vol] 37 U/L 11 - 82 U/L [facility] NON CIGAR WRAPPER TENDER AUTOMATIC CASESon 12-10-2024 NON CIGAR WRAPPER TENDER AUTOMATIC CASES Normal [facility] Comment on above: Performed By: #### L EB8409 ####[place] [address] No Panel Informationon 12-10 [facility] PROCALCITONIN, Son PROCALCITONIN, S 0.09 ng/mL Normal [facility] Comment on above: Result Comment: . <0 [...] or septic shock. Performed By: #### L XI1439, JUT9185, [id number], [id number] ####[id number] [place] [address] PT AND APTTon 12-10-2024 aPTT Coag (Bld) [Time] 41.3 s High 24.2-34.2 [facility] Comment on above: Performed By: #### L [id number], [id number] ####[facility] [address] [place] [id number] INR Coag (PPP) [Relative time] 1.7 {INR} High 0.9-1.1 [facility] Comment on above: LEVEL OF THERAPY IND [...] MECHANICAL HEART VALVES Performed By: #### L [id number], [id number] ####[facility] [address] [place] [address] PT Coag (PPP) [Time] 20.1 s High 10.1-13.7 [facility] Comment on above: Performed By: #### L ND8241, CAT6434 ####[facility] [address] [place] [address] PT/APTT/INRon 12-10-2024 aPTT Coag (PPP) [Time] 41.3 s High 24.2 - 34.2 s [facility] Interpretation and review of laboratory results Abnormal [facility] Procalcitonin, QN, Son 12-10 Procalcitonin [Mass/Vol] 0.09 ng/mL [facility] Comment on above: . <0.05 ng/mL Healthy [...] to severe bacterial sepsis or septic shock. [facility] Protein Body Fluidon 025 Protein (Body fld) [Mass/Vol] 961.0 mg/dL [facility] Specimen source Nom (Body fld) Ascites [facility] Protein, Fluidon 12-10-2024 Protein, Fluid 961.0 mg/dL Normal [facility] Comment on above: Performed By: #### L UW9285, PYN3571, OXZ8865, DOR9270, HCW6098 ####[facility] [address] [place] [address] SOURCE Ascites Normal [facility] Comment on above: Performed By: #### L AL8852, YKS6317, BHU9437, HAR9317, EHS7304 ####[facility] [address] [place] [address] UA for Infection (Reflex Cul ture)on 12-10-2024 Bacteria Auto (Urine sed) [#/Area] None Seen NONE SEEN [HPF] [facility] Bilirubin (U) [Mass/Vol] Negative NEGATIVE mg/dL [facility] Clarity Refractometry automated (U) Turbid Abnormal CLEAR [facility] Color (U) Yellow YELLOW [facility] Epithelial cells.non-squamous Auto (Urine sed) [#/Area] [HPF] NONE SEEN [HPF] [facility] Epithelial cells.squamous Auto (Urine sed) [#/Area] [HPF] Abnormal 3 - 5 [HPF] [facility] Glucose Auto test strip (U) [Mass/Vol] Negative NEGATIVE mg/dL [facility] Hemoglobin Auto test strip (U) [Mass/Vol] 3+ Abnormal NEGATIVE mg/dL [facility] Interpretation and review of laboratory results Abnormal [facility] Ketones (U) [Mass/Vol] Negative NEGATIVE mg/d L [facility] Mucus Auto (Urine sed) [#/Area] Rare NONE SEEN [HPF] [facility] Nitrite Auto test strip Ql (U) Negative NEGATIVE mg/dL [facility] pH (U) 6.0 [pH] 5.0 - 9.0 [facility] Protein (U) [Mass/Vol] Trace Abnormal NEGATIVE mg/d L [facility] RBC LM.HPF (Urine sed) [#/Area] INNUM Abnormal 1 - 3 [HPF] [facility] Specific gravity Refractometry automated (U) [Rel density] 1.032 1.005 - 1.030 [facility] Urobilinogen (U) [Mass/Vol] NINF - 2.0 [facility] WBC Auto (Urine sed) [#/Area] [HPF] Abnormal 1 - 3 [HPF] [facility] WBC Auto test strip (U) [#/Vol] Negative NEGATIVE [facility] UA w/ Culture reflexon 12-10 UR BACTERIA None Seen Normal NONE SEEN [facility] Comment on above: Performed By: #### L [id number] ####[place] [address] UR MUCOUS Rare Normal NONE SEEN [facility] Comment on above: Performed By: #### L VA4109 ####[place] [address] UR NON-SQUAMOUS EPI < 1 Normal NONE SEEN [facility] Comment on above: Performed By: #### L IA9356 ####[place] [address] UR RBC INNUM Abnormal 1-3 [facility] Comment on above: Performed By: #### L ML5954 ####[place] [address] UR SQUAMOUS EPI 21 - 50 Abnormal 3-5 [facility] Comment on above: Performed By: #### L OC4831 ####[place] [address] UR WBC 6 - 10 Abnormal 1-3 [facility] Comment on above: Performed By: #### L YJ2365 ####[place] [address] UR BILIRUBIN Negative Normal NEGATIVE [facility] Comment on above: Performed By: #### L NA4466 ####[place] [address] UR BLOOD 3 + mg/dL Abnormal NEGATIVE [facility] Comment on above: Performed By: #### L WW6604 ####[place] [address] UR CLARITY Turbid Abnormal CLEAR [facility] Comment on above: Performed By: #### L SP8503 ####[place] [address] UR COLOR Yellow Normal YELLOW [facility] Comment on above: Performed By: #### L VQ5542 ####[facility] [place] [address] UR GLUCOSE Negative Normal NEGATIVE [facility] Comment on above: Performed By: #### L BW6132 ####[facility] [place] [address] UR KETONE Negative Normal NEGATIVE [facility] Comment on above: Performed By: #### L RT2060 ####[place] [address] UR LEUKOCYTE Negative Normal NEGATIVE [facility] Comment on above: Performed By: #### L LV3497 ####[facility] [place] [address] UR NITRITE Negative Normal NEGATIVE [facility] Comment on above: Performed By: #### L EN3975 ####[place] [address] UR PH 6.0 Normal 5.0-9.0 [facility] Comment on above: Performed By: #### L EM1996 ####[place] [address] UR PROTEIN Trace Abnormal NEGATIVE [facility] Comment on above: Performed By: #### L AN5581 ####[place] [address] UR SP GRAVITY 1.032 Normal 1.005-1.030 [facility] Comment on above: Performed By: #### L VU7674 ####BABATUNDE [place] [address] UR UROBILINOGEN < 2.0 Normal <2.0 [facility] Comment on above: Performed By: #### L UL1100 ####[facility] [address] [place] [address] US Abdomen RUQon 12-10-2024 [place] [address] Radiology PATIENT NAME: Carolina Hightower MR#: [id number] PROCEDURE DATE: 12/10/2024 ROOM#: [id number] ORDERING PHYS: Miranda Mootz PROCEDURE: Right upper [...] Zimmer MD arlen TD: 12/10/2024 JOB #: [id number] Radiology Page 1 of 1 COPY [facility] Saud Pierre MD - 12/10/2024 [place] [address] Radiology PATIENT NAME: Carolina Hightower MR#: [id number] PROCEDURE DATE: 12/10/2024 ROOM#: [id number] ORDERING PHYS: Miranda Marques PROCEDURE: Right upper [...] Zimmer MD jp TD: 12/10/2024 JOB #: [id number] Radiology Page 1 of 1 COPY [facility] Radiology Study observation (narrative) [facility] US Abdomen RUQOrdered By: Thania Pierre on 12-10-2024 [facility] Work Phone: US RUQ ABDOMENon 12-10-2024 US RUQ ABDOMEN Normal [facility] VASCULAR PROCEDUREon 025 VASCULAR PROCEDURE Normal [facility] Vascular Procedureon 025 : Technically successful ultrasound-guided therapeutic paracentesis with aspiration of 450 cc of cloudy mike fluid. SIGNED: Ginger Milton MD 12/10/2024 9:31 AM [facility] INTERVENTIONAL RADIOLOGY REPORT PATIENT: Carolina Hightower DATE [...] provided using 1% buffered lidocaine. A 6.5 Nauruan non-locking Resolve pigtail catheter was advanced into the peritoneal space. 450 cc of cloudy mike fluid were obtained. The catheter was removed intact. A dry sterile dressing was applied to the puncture site. The patient tolerated the procedure well and there were no immediate complications. The patient was given no IV albumin. FINDINGS: Small amount of free peritoneal fluid/ascites. [facility] Radiology Study observation (narrative) [facility] Vascular Procedureon 025 [facility] Radiology Study observation (narrative) [facility] VASCULAR PROCEDUREon 025 VASCULAR PROCEDURE Normal [facility] VASCULAR PROCEDUREon 025 VASCULAR PROCEDURE Normal [facility] CBC w/ Differentialon 2024 Basophil Abs. 0.0 10*3/uL Normal 0.0-0.1 [facility] Comment on above: Order Comment: Varela d to and read back by george cao (mercedes), at 16:04 on 11/19/2024, PJP Performed By: #### L YS0138, KZH1010, EUN8254 ####[facility] [address] [place] [address] Basophils/100 WBC (Bld) 0.4 % Normal 0.0-1.0 [facility] Comment on above: Order Comment: Varela d to and read back by george perez), at 16:04 on 11/19/2024, PJP Performed By: #### L AH8214, WOV0612, DCF4172 ####[facility] [address] [place] [address] Differential type Auto Normal [facility] Comment on above: Order Comment: Varela d to and read back by george cao (plat), at 16:04 on 11/19/2024, PJP Performed By: #### L ES4066, NKJ7484, HXF8478 ####[place] [address] Eosinophils (Bld) [#/Vol] 0.2 10*3/uL Normal 0.0-0.5 [facility] Comment on above: Order Comment: Varela d to and read back by george cao (plat), at 16:04 on 11/19/2024, PJP Performed By: #### L XG5615, PJJ1742, EYP4919 ####[place] [address] Eosinophils/100 WBC (Bld) 3.7 % Normal 0.3-5.0 [facility] Comment on above: Order Comment: Varela d to and read back by george cao (plat), at 16:04 on 11/19/2024, PJP Performed By: #### L SK1406, NZR8840, KMV0090 ####[place] [address] Erythrocyte distribution width (RBC) [Ratio] 16.5 % Normal 10.7-18.7 [facility] Comment on above: Order Comment: Varela d to and read back by george cao (plat), at 16:04 on 11/19/2024, PJP Performed By: #### L HF0610, LMV0187, LRA6301 ####[place] [address] Hematocrit (Bld) [Volume fraction] 39.7 % Normal 33.0-51.0 [facility] Comment on above: Order Comment: Varela d to and read back by george cao (plat), at 16:04 on 11/19/2024, PJP Performed By: #### L OP8448, UVD3554, BSY1867 ####[place] [address] Hemoglobin (Bld) [Mass/Vol] 13.4 g/dL Normal 12.0-16.0 [facility] Comment on above: Order Comment: Varela d to and read back by george cao (mercedes), at 16:04 on 11/19/2024, PJP Performed By: #### L ZW2217, DEK0045, WMQ1104 ####[place] [address] Lymphocytes (Bld) [#/Vol] 1.4 10*3/uL Normal 1.1-5.0 [facility] Comment on above: Order Comment: Varela d to and read back by george cao (plat), at 16:04 on 11/19/2024, PJP Performed By: #### L PU1823, WLS6612, SWR6152 ####[place] [address] Lymphocytes/100 WBC (Bld) 22.1 % Low 24.0-44.0 [facility] Comment on above: Order Comment: Varela d to and read back by george cao (mercedes), at 16:04 on 11/19/2024, PJP Performed By: #### L EL7537, KOF9502, JOI6461 ####[place] [address] MCH (RBC) [Entitic mass] 31.5 pg Normal 26.0-34.0 [facility] Comment on above: Order Comment: Varela d to and read back by george cao (mercedes), at 16:04 on 11/19/2024, PJP Performed By: #### L HC2808, HBY6772, FLZ1529 ####[place] [address] MCHC (RBC) [Mass/Vol] 33.7 g/dL Normal 32.0-36.0 [facility] Comment on above: Order Comment: Varela d to and read back by george cao (mercedes), at 16:04 on 11/19/2024, PJP Performed By: #### L YP5864, FVA5859, HPW0957 ####[place] [address] MCV (RBC) [Entitic vol] 93.5 fL Normal 80.0-100.0 [facility] Comment on above: Order Comment: Varela d to and read back by george cao (mercedes), at 16:04 on 11/19/2024, PJP Performed By: #### L PW4714, UIG6759, ZAN8217 ####BABSC [address] [address] MDW 20.4 High 0.0-20.0 [facility] Comment on above: Order Comment: Varela d to and read back by george cao (mercedes), at 16:04 on 11/19/2024, PJP Performed By: #### L XU2194, GJT3474, XTO1266 ####[place] [address] Monocytes (Bld) [#/Vol] 0.8 10*3/uL Normal 0.0-1.4 [facility] Comment on above: Order Comment: Varela d to and read back by george cao (mercedes), at 16:04 on 11/19/2024, PJP Performed By: #### L CS8882, OAL9364, SXR7883 ####[place] [address] Monocytes/100 WBC (Bld) 11.9 % Normal 2.1-13.3 [facility] Comment on above: Order Comment: Varela d to and read back by george perez), at 16:04 on 11/19/2024, PJP Performed By: #### L RR1571, RWB2323, NSN1744 ####[place] [address] Neutrophils, Abs. 3.9 10*3/uL Normal 1.5-8.5 [facility] Comment on above: Order Comment: Varela d to and read back by george cao (mercedes), at 16:04 on 11/19/2024, PJP Performed By: #### L AX9735, NHO0970, MEC4383 ####BABSC [address] [address] Neutrophils/100 WBC (Bld) 61.9 % Normal 35.0-66.0 [facility] Comment on above: Order Comment: Varela d to and read back by george cao (mercedes), at 16:04 on 11/19/2024, PJP Performed By: #### L ES0425, XKN4937, ENA6583 ####BABATUNDE [place] [address] [place] [address] Platelet Cnt 44 10*3/uL Critically low 150-450 [facility] Comment on above: Order Comment: Varela d to and read back by george cao (plat), at 16:04 on 11/19/2024, PJP Performed By: #### L VM0005, VPT2085, OBQ6045 ####BABATUNDE [place] [address] [place] [address] Platelet mean volume (Bld) [Entitic vol] 9.1 fL Normal 6.5-10.0 [facility] Comment on above: Order Comment: Varela d to and read back by george cao (mercedes), at 16:04 on 11/19/2024, PJP Performed By: #### L XE4729, UPN8486, AOD9647 ####[place] [address] RBC (Bld) [#/Vol] 4.25 10*6/uL Normal 4.00-5.20 [facility] Comment on above: Order Comment: Varela d to and read back by george cao (mercedes), at 16:04 on 11/19/2024, PJP Performed By: #### L PI5966, EXB3676, EER7173 ####[facility] [address] [place] [address] WBC (Bld) [#/Vol] 6.4 10*3/uL Normal 4.5-11.0 [facility] Comment on above: Order Comment: Varela d to and read back by george cao (plat), at 16:04 on 11/19/2024, PJP Performed By: #### L QF7658, CLG5034, HFV1115 ####BABATUNDE [facility] [place] [address] CBC w/Differentialon 025 Basophils (Bld) [#/Vol] 0.0 10*3/uL 0.0 - 0.1 10*3/uL [facility] Basophils/100 WBC (Bld) 0.4 % 0.0 - 1.0 % [facility] Differential cell count method Nom (Bld) Auto [facility] Eosinophils (Bld) [#/Vol] 0.2 10*3/uL 0.0 - 0.5 10*3/uL [facility] Eosinophils/100 WBC (Bld) 3.7 % 0.3 - 5.0 % [facility] Erythrocyte distribution width (RBC) [Ratio] 16.5 % 10.7 - 18.7 % [facility] Hematocrit (Bld) [Volume fraction] 39.7 % 33.0 - 51.0 % [facility] Hemoglobin (Bld) [Mass/Vol] 13.4 g/dL 12.0 - 16.0 g/dL [facility] Lymphocytes (Bld) [#/Vol] 1.4 10*3/uL 1.1 - 5.0 10*3/uL [facility] Lymphocytes/100 WBC (Bld) 22.1 % Low 24.0 - 44.0 % [facility] MCH (RBC) [Entitic mass] 31.5 pg 26.0 - 34.0 pg [facility] MCHC (RBC) [Mass/Vol] 33.7 g/dL 32.0 - 36.0 g/dL [facility] MCV (RBC) [Entitic vol] 93.5 fL 80.0 - 100.0 fL [facility] Monocyte distribution width Auto (Bld) [Entitic vol] 20.4 High 0.0 - 20.0 [facility] Monocytes (Bld) [#/Vol] 0.8 10*3/uL 0.0 - 1.4 10*3/uL [facility] Monocytes/100 WBC (Bld) 11.9 % 2.1 - 13.3 % [facility] Neutrophils (Bld) [#/Vol] 3.9 10*3/uL 1.5 - 8.5 10*3/uL [facility] Neutrophils/100 WBC (Bld) 61.9 % 35.0 - 66.0 % [facility] Platelet mean volume (Bld) [Entitic vol] 9.1 fL 6.5 - 10.0 fL [facility] Platelets (Bld) [#/Vol] 44 10*3/uL Critically low 150 - 450 10*3/uL [facility] RBC (Bld) [#/Vol] 4.25 10*6/uL 4.00 - 5.2 0 10*6/uL [facility] WBC (Bld) [#/Vol] 6.4 10*3/uL 4.5 - 11.0 10*3/uL [facility] Called to and read b ack by george aco (mercedes), at 16:04 on 11/19/2024, JOANP [facility] COMPREHENSIVE METABOLIC PANE [place] 11-19-2024 Albumin [Mass/Vol] 3.0 g/dL Low 3.2-5.0 [facility] Comment on above: Performed By: #### L WH6373, QEH2181, IEV1658 ####[place] [address] Albumin/Globulin [Mass ratio] 0.9 {ratio} Normal [facility] Comment on above: Performed By: #### L AZ7515, SNQ9890, HLR7576 ####[place] [address] ALP [Catalytic activity/Vol] 140 U/L High 42-121 [facility] Comment on above: Performed By: #### L YC7603, HED2454, EZC0701 ####[place] [address] ALT [Catalytic activity/Vol] 48 U/L Normal 10-60 [facility] Comment on above: Performed By: #### L KS1966, DXP6630, WIK0355 ####[place] [address] Anion gap [Moles/Vol] 3 mmol/L Normal [facility] Comment on above: Performed By: #### L YR4318, FZI6679, RFE9681 ####[place] [address] AST [Catalytic activity/Vol] 68 U/L High 10-42 [facility] Comment on above: Performed By: #### L IV2527, WBV5482, MSI5924 ####[place] [address] B/C 16 Normal 10-20 [facility] Comment on above: Performed By: #### L YS0927, OOX6401, RKI1696 ####[place] [address] Bilirubin.direct [Mass/Vol] 1.8 mg/dL High 0.2-1.0 [facility] Comment on above: Performed By: #### L AN7108, KPN1642, PEN2873 ####[place] [address] Calcium [Mass/Vol] 7.9 mg/dL Low 8.5-10.5 [facility] Comment on above: Performed By: #### L RA5964, QQU8368, SYY8688 ####[place] [address] Chloride [Moles/Vol] 109 mmol/L Normal 101-111 [facility] Comment on above: Performed By: #### L YE3560, RRI0801, NCB5221 ####[place] [address] CO2 [Moles/Vol] 24 mmol/L Normal 21-31 [facility] Comment on above: Performed By: #### L UY1977, WKU7121, SKC0412 ####[place] [address] Creatinine [Mass/Vol] 1.2 mg/dL High 0.4-1.0 [facility] Comment on above: Performed By: #### L WY0981, GKR9531, APV7533 ####BABATUNDE [place] [id number] [place] [address] GFR/1.73 sq M.predicted MDRD (S/P/Bld) [Vol rate/Area] 47 mL/min/{1.73_m2} Normal [facility] Comment on above: *The estimated Glome rular [...] mL/min or less Performed By: #### L CD8093, OWW5674, MSO3108 ####[place] [address] Glucose [Mass/Vol] 112 mg/dL High 70-110 [facility] Comment on above: Performed By: #### L XG6964, JFZ3039, FYU0245 ####BABATUNDE [address] [address] Osmolality [Osmolality] 275 mosm/kg Normal 266-309 [facility] Comment on above: Performed By: #### L XH5520, PRW3495, HPQ2953 ####[facility] [address] [place] [address] Potassium [Moles/Vol] 4.1 mmol/L Normal 3.6-5.0 [facility] Comment on above: Performed By: #### L PA6960, OFW8349, SFN7564 ####BABATUNDE [place] [address] [place] [address] Protein [Mass/Vol] 6.2 g/dL Normal 6.1-7.8 [facility] Comment on above: Performed By: #### L MM8360, LMJ7495, QJT2942 ####[facility] [address] [place] [address] Sodium [Moles/Vol] 136 mmol/L Normal 135-145 [facility] Comment on above: Performed By: #### L BT2140, OHB6102, LOX9432 ####BABATUNDE [place] [address] [place] [address] Urea nitrogen [Mass/Vol] 19 mg/dL Normal 2-32 [facility] Comment on above: Performed By: #### L EV6224, THU6365, BBB8347 ####[facility] [address] [place] [address] Comprehensive Metabolic Pane merritt 11-19-2024 Bilirubin [Mass/Vol] 1.8 mg/dL High 0.2 - 1 .0 mg/dL [facility] Osmolality Calc [Osmolality] 275 266 - 309 [facility] Urea nitrogen/Creatinine [Mass ratio] 16 mg/mg 10 - 20 [facility] No Panel Informationon 11-19 Interpretation and review of laboratory results Abnormal [facility] PROCALCITONIN, Son PROCALCITONIN, S 0.14 ng/mL Normal [facility] Comment on above: Result Comment: . <0 [...] or septic shock. Performed By: #### L NX1621, EDG8482, IKJ9948 ####BABATUNDE [place] [address] [place] [address] Procalcitonin, QN, Son 11-19 Procalcitonin [Mass/Vol] 0.14 ng/mL [facility] Comment on above: . <0.05 ng/mL Healthy [...] LATERALon XR CHEST PA AND LATERAL Normal [facility] [place]R [place] [address] Radiology PATIENT NAME: Carolina Hightower MR#: [id number] PROCEDURE DATE: 11/19/2024 ROOM#: [id number] ORDERING PHYS: Lambert Christie PROCEDURE: XR CHEST PA AND LATERAL CLINICAL INFORMATION: dyspnea COMPARISON: 09/01/2024 FINDINGS: The lungs are well expanded. There is no pneumothorax, pleural effusion, or regional airspace consolidation. The cardiomediastinal structures are normal in appearance. Bony thorax is intact. IMPRESSION: No evidence of acute cardiopulmonary abnormality. THIS IS AN ELECTRONICALLY VERIFIED REPORT 11/19/2024 3:10 PM: MD Terry Greene MD TD: 11/19/2024 JOB #: [id number] Radiology Page 1 of 1 COPY [facility] Terry Thomas MD - 11/19/2024 [place] [address] Radiology PATIENT NAME: Carolina Hightower MR#: [id number] PROCEDURE DATE: 11/19/2024 ROOM#: [id number] ORDERING PHYS: Lambert Christie PROCEDURE: XR CHEST PA AND LATERAL CLINICAL INFORMATION: dyspnea COMPARISON: 09/01/2024 FINDINGS: The lungs are well expanded. There is no pneumothorax, pleural effusion, or regional airspace consolidation. The cardiomediastinal structures are normal in appearance. Bony thorax is intact. IMPRESSION: No evidence of acute cardiopulmonary abnormality. THIS IS AN ELECTRONICALLY VERIFIED REPORT 11/19/2024 3:10 PM: MD Terry Greene MD gs TD: 11/19/2024 JOB #: [id number] Radiology Page 1 of 1 COPY [facility] Radiology Study observation (narrative) [facility] XR Chest PA and LateralOrder ed By: Terry Thomas on 11-19-2024 [facility] Work Phone: URINE CULTUREon 11-13-2024 Bacteria identified Cx Nom (U) Bacteria identified in Urine by Culture URINE CULTURE: No significant growth. Normal [facility] Comment on above: Performed By: #### L CK5490 ####[place] [address] CBC w/ Differentialon 2024 Basophil Abs. 0.0 10*3/uL Normal 0.0-0.1 [facility] Comment on above: Order Comment: Varela d to and read back by PLT rechecked and read back by Judie Jacobs, at12:57 on 11/08/2024, EDB Performed By: #### L MY4282, UOV3783, CQN5427, JID1013, TGE3506, IUX9218 ####[place] [address] Basophils/100 WBC (Bld) 0.4 % Normal 0.0-1.0 [facility] Comment on above: Order Comment: Varela d to and read back by PLT rechecked and read back by Judie Jacobs, at12:57 on 11/08/2024, EDB Performed By: #### L RQ8046, IYB4665, ZLQ7834, NKC4696, BTQ2246, NQF6825 ####[place] [address] Differential type Auto Normal [facility] Comment on above: Order Comment: Varela d to and read back by PLT rechecked and read back by Judie Jacobs, at12:57 on 11/08/2024, EDB Performed By: #### L WC7598, WQW6206, PKH2449, XHQ9029, TRF0647, GXH9796 ####[place] [address] Eosinophils (Bld) [#/Vol] 0.3 10*3/uL Normal 0.0-0.5 [facility] Comment on above: Order Comment: Varela d to and read back by PLT rechecked and read back by Judie Jacobs, at12:57 on 11/08/2024, EDB Performed By: #### L BX3858, SWB4208, EQK2006, QXJ5222, NCH1194, HKF0713 ####[place] [address] Eosinophils/100 WBC (Bld) 5.0 % Normal 0.3-5.0 [facility] Comment on above: Order Comment: Varela d to and read back by PLT rechecked and read back by Judie Jacobs, at12:57 on 11/08/2024, EDB Performed By: #### L RN7392, STA5430, MWA2181, GUZ1225, XHJ9049, QDX9664 ####[place] [address] Erythrocyte distribution width (RBC) [Ratio] 16.0 % Normal 10.7-18.7 [facility] Comment on above: Order Comment: Varela d to and read back by PLT rechecked and read back by Judie Jacobs, at12:57 on 11/08/2024, EDB Performed By: #### L FG2701, CPH4291, SSZ2371, WMA9564, SNN1735, DSR2138 ####[address] [address] Hematocrit (Bld) [Volume fraction] 41.7 % Normal 33.0-51.0 [facility] Comment on above: Order Comment: Varela d to and read back by PLT rechecked and read back by Judie Jacobs, at12:57 on 11/08/2024, EDB Performed By: #### L VP8410, OFG5812, SRZ6177, ZRN8030, ZGI9219, UOY4560 ####[address] [place] [address] Hemoglobin (Bld) [Mass/Vol] 14.0 g/dL Normal 12.0-16.0 [facility] Comment on above: Order Comment: Varela d to and read back by PLT rechecked and read back by Judie Jacobs, at12:57 on 11/08/2024, EDB Performed By: #### L JV0869, SAQ8163, NFA1067, XBQ5744, JEF0856, CAS0270 ####[place] [address] Lymphocytes (Bld) [#/Vol] 1.0 10*3/uL Low 1.1-5.0 [facility] Comment on above: Order Comment: Varela d to and read back by PLT rechecked and read back by Judie Jacobs, at12:57 on 11/08/2024, EDB Performed By: #### L VU4027, URQ0802, CSH1101, KVK4943, XDM9564, TXS2971 ####[place] [address] Lymphocytes/100 WBC (Bld) 20.2 % Low 24.0-44.0 [facility] Comment on above: Order Comment: Varela d to and read back by PLT rechecked and read back by Judie Jacobs, at12:57 on 11/08/2024, EDB Performed By: #### L KE4593, TWY7810, GAL3410, MGK1913, FWO7183, WJQ8118 ####BABATUNDE [address] [address] MCH (RBC) [Entitic mass] 32.4 pg Normal 26.0-34.0 [facility] Comment on above: Order Comment: Varela d to and read back by PLT rechecked and read back by Judie Jacobs, at12:57 on 11/08/2024, EDB Performed By: #### L CU0082, OGW3833, HAE2655, RCO2160, QIS4933, EIZ3914 ####BABATUNDE [address] [address] MCHC (RBC) [Mass/Vol] 33.5 g/dL Normal 32.0-36.0 [facility] Comment on above: Order Comment: Varela d to and read back by PLT rechecked and read back by Judie Jacobs, at12:57 on 11/08/2024, EDB Performed By: #### L DW2918, KBU1630, JVC9455, KDY6654, EWN8184, HDE8903 ####BABATUNDE [address] [address] MCV (RBC) [Entitic vol] 96.8 fL Normal 80.0-100.0 [facility] Comment on above: Order Comment: Varela d to and read back by PLT rechecked and read back by Judie Jacobs, at12:57 on 11/08/2024, EDB Performed By: #### L AG0281, AJN8398, WPZ0137, KER1724, UEC4326, QIL0472 ####[place] [address] Monocytes (Bld) [#/Vol] 0.6 10*3/uL Normal 0.0-1.4 [facility] Comment on above: Order Comment: Varela d to and read back by PLT rechecked and read back by Judie Jacobs, at12:57 on 11/08/2024, EDB Performed By: #### L UV7968, VCX1576, QEG3075, YLE7155, JMM6979, FXP1847 ####BABATUNDE [address] [address] Monocytes/100 WBC (Bld) 10.7 % Normal 2.1-13.3 [facility] Comment on above: Order Comment: Varela d to and read back by PLT rechecked and read back by Judie Jacobs, at12:57 on 11/08/2024, EDB Performed By: #### L JM3556, YCG5728, LQK6045, RDJ1634, LIN6689, MSX2976 ####BABATUNDE [address] [address] Neutrophils, Abs. 3.3 10*3/uL Normal 1.5-8.5 [facility] Comment on above: Order Comment: Varela d to and read back by PLT rechecked and read back by Judie Jacobs, at12:57 on 11/08/2024, EDB Performed By: #### L KW0023, NEY2013, AUY2141, BCA5799, IYK8675, KTE5091 ####[address] [address] Neutrophils/100 WBC (Bld) 63.7 % Normal 35.0-66.0 [facility] Comment on above: Order Comment: Varela d to and read back by PLT rechecked and read back by Judie Jacobs, at12:57 on 11/08/2024, EDB Performed By: #### L EV4205, TVI4186, BFE9248, MVV2735, BVB0430, VCK1332 ####[address] [address] Platelet Cnt 43 10*3/uL Critically low 150-450 [facility] Comment on above: Order Comment: Varela d to and read back by PLT rechecked and read back by Judie Jacobs, at12:57 on 11/08/2024, EDB Performed By: #### L WH4636, BQP8433, VVB0119, RVL0436, HRB3361, RTG0493 ####[address] [address] Platelet mean volume (Bld) [Entitic vol] 9.6 fL Normal 6.5-10.0 [facility] Comment on above: Order Comment: Varela d to and read back by PLT rechecked and read back by Judie Jacobs, at12:57 on 11/08/2024, EDB Performed By: #### L AP3136, HZF8009, XEZ6282, ABD6309, LEW1533, TIX7882 ####[address] [address] RBC (Bld) [#/Vol] 4.31 10*6/uL Normal 4.00-5.20 [facility] Comment on above: Order Comment: Varela d to and read back by PLT rechecked and read back by Judie Jacobs, at12:57 on 11/08/2024, EDB Performed By: #### L XI4708, NGI8504, GRE4878, EKM6457, RFR3122, ZTB3408 ####[place] [address] WBC (Bld) [#/Vol] 5.1 10*3/uL Normal 4.5-11.0 [facility] Comment on above: Order Comment: Varela d to and read back by PLT rechecked and read back by Judie Jacobs, at12:57 on 11/08/2024, EDB Performed By: #### L YO3558, RKE2238, LDJ4818, MWE7364, HQY8990, GEV4104 ####[place] [address] FERRITINon 11-08-2024 Ferritin [Mass/Vol] 75.4 ng/mL Normal 11.0-306.8 [facility] Comment on above: Performed By: #### L WR9824, CGN1908, WUM1553, FLE2334, NWC6596, PJS3463 ####[place] [address] FOLATESon 11-08-2024 FOLATES > 20.0 Normal >5.21 [facility] Comment on above: Performed By: #### L EF8987, LUL7426, PTW0195, TRD8399, SQZ1760, XFP7145 ####[place] [address] IRON AND TOTAL IRON BINDING CAPACITYon 11-08-2024 % SATURATION 63 % High 15-55 [facility] Comment on above: Performed By: #### L WP2802, LBJ9107, POA1169, MSQ6183, OEW7368, MER8079 ####[place] [address] Iron [Mass/Vol] 198 ug/dL High 40-150 [facility] Comment on above: Performed By: #### L TS5108, DND4694, DMD3826, UYQ7434, FVN6627, WYH0404 ####[place] [address] IRON BIND. CAP.,TOT 315 ug/dL Normal 250-400 [facility] Comment on above: Performed By: #### L HN4861, ZKH2172, XTT8888, QGB8335, WDM3621, AMD4322 ####[place] [address] Transferrin [Mass/Vol] 225.00 mg/dL Normal 192.00-382. 00 [facility] Comment on above: Performed By: #### L NR8447, SEC7062, GDF1869, NBW5495, ZNQ8317, FQF4304 ####[place] [address] UIBC 117 ug/dL Low 150-375 [facility] Comment on above: Performed By: #### L LB4258, VBT0698, JIR9398, OOT4960, VGM6819, MWR7086 ####[place] [address] PT INRon 11-08-2024 INR Coag (PPP) [Relative time] 1.5 {INR} High 0.9-1.1 [facility] Comment on above: Result Comment: CORRIE Luciano OF THERAPY INDICATIONS TARGET INR RANGESTANDARD DOSE TREATMENT OF VENOUS THROMBOSIS 2.0-3.0 TREATMENT OF PULMONARY EMBOLUS PROPHYLAXIS AGAINST VENOUS THROMBOSIS BY SYSTEMIC EMBOLIZATION .HIGH DOSE HIGH RISK PATIENTS WITH 2.5-3.5 MECHANICAL HEART VALVES Performed By: #### L DI3039, UGT6012, GWU0610, OJV7292, SQK5063, VSR4163 ####[place] [address] PT Coag (PPP) [Time] 17.9 s High 10.1-13.7 [facility] Comment on above: Performed By: #### L WA6454, AVF7535, YLE9746, EMH6942, TVR9518, IYQ5603 ####[place] [address] VITAMIN B12on 11-08-2024 VITAMIN B12 1,023 pg/mL High 180-914 [facility] Comment on above: Performed By: #### L VY5343, PCU3017, GGN8315, ERZ3757, OFJ8450, HJJ5261 ####[facility] [address] [place] [address] VASCULAR PROCEDUREon 025 VASCULAR PROCEDURE Normal [facility] URINE CULTUREon 10-17-2024 Bacteria identified Cx Nom (U) Bacteria identified in Urine by Culture URINE CULTURE: COLONY COUNT: 10-100K cfu/ml Mixed Skin Kelsea. Normal [facility] Comment on above: Performed By: #### L BO9940 ####[facility] [place] [address] CNPNon 10-15-2024 CNPN Telephone (GSTNOR) CAROLINA HIGHTOWER ([id number]) 1975 F Date Time Provider Department 10/15/24 JAMES HENDRIX GSTNOR During your visit today, we recorded the following information about you: Kaylin Rhodes 10/15/2024 3:50 PM Signed LM we need to cancel her 10/24 appt due to her insurance being OON and they denied her coming here. Allergies As of Date: 10/15/2024 Noted Allergy Reaction ASPIRIN 06/02/2005 Comments: UNCERTAIN =CHILDHOOD BUPROPION 06/11/2019 14 - Other: See Comments CODEINE 06/02/2005 2 - Rash PREDNISONE 06/19/2019 2 - Rash WELLBUTRIN (BUPROPION HCL) 09/29/2012 14 - Other: See Comments Comments: seizures Date Reviewed: 06/04/2024 Reviewed by: Loree Rueda, RN - Fully Assessed Prescriptions as of 10/15/2024 - ibuprofen (MOTRIN) 600 mg tablet Take [...] morning 05/15/2022 Problem List As Of Date 10/15/2024 Noted Resolved Major depression [F32.9] 04/03/2007 LUMBAGO [...] 11/20/2023 Encounter Status:Closed by KAYLIN RHODES on 10/15/24 Normal [facility] VASCULAR PROCEDUREon 025 VASCULAR PROCEDURE Normal [facility] CNPNon 10-10-2024 CNPN Telephone (GSTNOR) CAROLINA HIGHTOWER ([id number]) 1975 F Date Time Provider Department 10/10/24 JAMES HENDRIX GSTNOR During your visit today, we recorded the following information about you: Kaylin Rhodes 10/10/2024 11:31 AM Signed Called pt to notify her we received a denial from [facility] regarding her visit here on 10/24, so we need to cancel appnash LM to call me back Allergies As of Date: 10/10/2024 Noted Allergy Reaction ASPIRIN 06/02/2005 Comments: UNCERTAIN =CHILDHOOD BUPROPION 06/11/2019 14 - Other: See Comments CODEINE 06/02/2005 2 - Rash PREDNISONE 06/19/2019 2 - Rash WELLBUTRIN (BUPROPION HCL) 09/29/2012 14 - Other: See Comments Comments: seizures Date Reviewed: 06/04/2024 Reviewed by: Loree Rueda RN - Fully Assessed Prescriptions as of 10/10/2024 [...] Status:Closed by KAYLIN RHODES on 10/10/24 Normal [facility] CBC w/ Differentialon 2024 Basophil Abs. 0.0 10*3/uL Normal 0.0-0.1 [facility] Comment on above: Order Comment: Varela d to and read back by jacky dumont (ed), at 08:37 on 10/04/2024, MHE Performed By: #### L UF3956, KLP9943 ####[place] [address] Basophils/100 WBC (Bld) 0.6 % Normal 0.0-1.0 [facility] Comment on above: Order Comment: Varela d to and read back by jacky dumont (ed), at 08:37 on 10/04/2024, MHE Performed By: #### L LR7016, ZUL0502 ####[facility] [address] [place] [address] Differential type Auto Normal [facility] Comment on above: Order Comment: Varela d to and read back by jacky dumont (ed), at 08:37 on 10/04/2024, MHE Performed By: #### L HI6761, MFP9977 ####[place] [address] Eosinophils (Bld) [#/Vol] 0.2 10*3/uL Normal 0.0-0.5 [facility] Comment on above: Order Comment: Varela d to and read back by jacky dumont (ed), at 08:37 on 10/04/2024, MHE Performed By: #### L ZI3771, PEZ4892 ####[place] [address] Eosinophils/100 WBC (Bld) 4.9 % Normal 0.3-5.0 [facility] Comment on above: Order Comment: Varela d to and read back by jacky dumont (ed), at 08:37 on 10/04/2024, MHE Performed By: #### L HU7239, OXS6217 ####[place] [address] Erythrocyte distribution width (RBC) [Ratio] 16.6 % Normal 10.7-18.7 [facility] Comment on above: Order Comment: Varela d to and read back by jacky dumont (ed), at 08:37 on 10/04/2024, MHE Performed By: #### L SD3338, CGZ8810 ####[place] [address] Hematocrit (Bld) [Volume fraction] 38.4 % Normal 33.0-51.0 [facility] Comment on above: Order Comment: Varela d to and read back by jacky dumont (ed), at 08:37 on 10/04/2024, MHE Performed By: #### L GM2563, ZPR0576 ####[place] [address] Hemoglobin (Bld) [Mass/Vol] 12.5 g/dL Normal 12.0-16.0 [facility] Comment on above: Order Comment: Varela d to and read back by jacky dumont (ed), at 08:37 on 10/04/2024, MHE Performed By: #### L YZ8612, ZRT0558 ####[place] [address] Lymphocytes (Bld) [#/Vol] 0.8 10*3/uL Low 1.1-5.0 [facility] Comment on above: Order Comment: Varela d to and read back by jacky dumont (ed), at 08:37 on 10/04/2024, MHE Performed By: #### L JZ0388, NUH6218 ####[place] [address] Lymphocytes/100 WBC (Bld) 17.2 % Low 24.0-44.0 [facility] Comment on above: Order Comment: Varela d to and read back by jacky dumont (ed), at 08:37 on 10/04/2024, MHE Performed By: #### L JJ5646, ZCX5383 ####[place] [address] MCH (RBC) [Entitic mass] 32.0 pg Normal 26.0-34.0 [facility] Comment on above: Order Comment: Varela d to and read back by jacky dumont (ed), at 08:37 on 10/04/2024, MHE Performed By: #### L YA0412, UGG9683 ####[place] [address] MCHC (RBC) [Mass/Vol] 32.6 g/dL Normal 32.0-36.0 [facility] Comment on above: Order Comment: Varela d to and read back by jacky dumont (ed), at 08:37 on 10/04/2024, MHE Performed By: #### L XP3777, CBB9407 ####[place] [address] MCV (RBC) [Entitic vol] 98.3 fL Normal 80.0-100.0 [facility] Comment on above: Order Comment: Varela d to and read back by jacky dumont (ed), at 08:37 on 10/04/2024, MHE Performed By: #### L LW3417, RXZ8580 ####[place] [address] Monocytes (Bld) [#/Vol] 0.3 10*3/uL Normal 0.0-1.4 [facility] Comment on above: Order Comment: Varela d to and read back by jacky dumont (ed), at 08:37 on 10/04/2024, MHE Performed By: #### L ZG8526, XBL3409 ####[address] [address] Monocytes/100 WBC (Bld) 6.9 % Normal 2.1-13.3 [facility] Comment on above: Order Comment: Varela d to and read back by jacky dumont (ed), at 08:37 on 10/04/2024, MHE Performed By: #### L GG5723, OTA1442 ####[place] [address] Neutrophils, Abs. 3.4 10*3/uL Normal 1.5-8.5 [facility] Comment on above: Order Comment: Varela d to and read back by jacky dumont (ed), at 08:37 on 10/04/2024, MHE Performed By: #### L BQ1858, EZD3002 ####[place] [address] Neutrophils/100 WBC (Bld) 70.4 % High 35.0-66.0 [facility] Comment on above: Order Comment: Varela d to and read back by jacky dumont (ed), at 08:37 on 10/04/2024, MHE Performed By: #### L BE6302, YGK3070 ####[place] [address] Platelet Cnt 43 10*3/uL Critically low 150-450 [facility] Comment on above: Order Comment: Varlea d to and read back by jacky dumont (ed), at 08:37 on 10/04/2024, MHE Performed By: #### L DS9381, LCO2606 ####[place] [address] Platelet mean volume (Bld) [Entitic vol] 9.9 fL Normal 6.5-10.0 [facility] Comment on above: Order Comment: Varela d to and read back by jacky dumont (ed), at 08:37 on 10/04/2024, MHE Performed By: #### L CO2876, NFO1312 ####[facility] [address] [place] [address] RBC (Bld) [#/Vol] 3.91 10*6/uL Low 4.00-5.20 [facility] Comment on above: Order Comment: Varela d to and read back by jacky dumont (ed), at 08:37 on 10/04/2024, MHE Performed By: #### L NF0409, UGH3103 ####[facility] [address] [place] [address] WBC (Bld) [#/Vol] 4.8 10*3/uL Normal 4.5-11.0 [facility] Comment on above: Order Comment: Varela d to and read back by jacky dumont (ed), at 08:37 on 10/04/2024, MHE Performed By: #### L ZK3650, HAO6599 ####[facility] [address] [place] [address] CBC w/Differentialon 025 Basophils (Bld) [#/Vol] 0.0 10*3/uL 0.0 - 0.1 10*3/uL [facility] Basophils/100 WBC (Bld) 0.6 % 0.0 - 1.0 % [facility] Differential cell count method Nom (Bld) Auto [facility] Eosinophils (Bld) [#/Vol] 0.2 10*3/uL 0.0 - 0.5 10*3/uL [facility] Eosinophils/100 WBC (Bld) 4.9 % 0.3 - 5.0 % [facility] Erythrocyte distribution width (RBC) [Ratio] 16.6 % 10.7 - 18.7 % [facility] Hematocrit (Bld) [Volume fraction] 38.4 % 33.0 - 51.0 % [facility] Hemoglobin (Bld) [Mass/Vol] 12.5 g/dL 12.0 - 16.0 g/dL [facility] Interpretation and review of laboratory results Abnormal [facility] Lymphocytes (Bld) [#/Vol] 0.8 10*3/uL Low 1.1 - 5.0 10*3/uL [facility] Lymphocytes/100 WBC (Bld) 17.2 % Low 24.0 - 44.0 % [facility] MCH (RBC) [Entitic mass] 32.0 pg 26.0 - 34.0 pg [facility] MCHC (RBC) [Mass/Vol] 32.6 g/dL 32.0 - 36.0 g/dL [facility] MCV (RBC) [Entitic vol] 98.3 fL 80.0 - 100.0 fL [facility] Monocytes (Bld) [#/Vol] 0.3 10*3/uL 0.0 - 1.4 10*3/uL [facility] Monocytes/100 WBC (Bld) 6.9 % 2.1 - 13.3 % [facility] Neutrophils (Bld) [#/Vol] 3.4 10*3/uL 1.5 - 8.5 10*3/uL [facility] Neutrophils/100 WBC (Bld) 70.4 % High 35.0 - 66.0 % [facility] Platelet mean volume (Bld) [Entitic vol] 9.9 fL 6.5 - 10.0 fL [facility] Platelets (Bld) [#/Vol] 43 10*3/uL Critically low 150 - 450 10*3/uL [facility] RBC (Bld) [#/Vol] 3.91 10*6/uL Low 4.00 - 5.2 0 10*6/uL [facility] WBC (Bld) [#/Vol] 4.8 10*3/uL 4.5 - 11.0 10*3/uL [facility] Called to and read b ack by jacky dumont (ed), at 08:37 on 10/04/2024, MHE [facility] COMPREHENSIVE METABOLIC PANE [place] 10-04-2024 Albumin [Mass/Vol] 2.8 g/dL Low 3.2-5.0 [facility] Comment on above: Performed By: #### L TI4638, URF2056 ####[place] [address] Albumin/Globulin [Mass ratio] 0.8 {ratio} Normal [facility] Comment on above: Performed By: #### L YW1908, VRT7559 ####[place] [address] ALP [Catalytic activity/Vol] 133 U/L High 42-121 [facility] Comment on above: Performed By: #### L VP7765, YCG8066 ####[place] [address] ALT [Catalytic activity/Vol] 66 U/L High 10-60 [facility] Comment on above: Performed By: #### L NZ4074, OOZ0811 ####[place] [address] Anion gap [Moles/Vol] 4 mmol/L Normal [facility] Comment on above: Performed By: #### L NI0314, KXW6211 ####[place] [address] AST [Catalytic activity/Vol] 105 U/L High 10-42 [facility] Comment on above: Performed By: #### L JT0300, MMV2712 ####[place] [address] B/C 8 Low 10-20 [facility] Comment on above: Performed By: #### L JN4214, HRB5685 ####[place] [address] Bilirubin.direct [Mass/Vol] 1.8 mg/dL High 0.2-1.0 [facility] Comment on above: Performed By: #### L EU2610, GSK5926 ####[place] [address] Calcium [Mass/Vol] 8.7 mg/dL Normal 8.5-10.5 [facility] Comment on above: Performed By: #### L UR0748, NRG7432 ####[facility] [address] [place] [address] Chloride [Moles/Vol] 110 mmol/L Normal 101-111 [facility] Comment on above: Performed By: #### L FL6735, LZC2586 ####[place] [address] [place] [address] CO2 [Moles/Vol] 19 mmol/L Low 21-31 [facility] Comment on above: Performed By: #### L YY8814, UJO4709 ####[facility] [address] [place] [address] Creatinine [Mass/Vol] 1.1 mg/dL High 0.4-1.0 [facility] Comment on above: Performed By: #### L KX2890, DPC7911 ####[facility] [address] [place] [address] GFR/1.73 sq M.predicted MDRD (S/P/Bld) [Vol rate/Area] 52 mL/min/{1.73_m2} Normal [facility] Comment on above: *The estimated Glome rular [...] mL/min or less Performed By: #### L IC2619, WUF5867 ####[place] [address] [place] [address] Glucose [Mass/Vol] 190 mg/dL High 70-110 [facility] Comment on above: Performed By: #### L IA8122, CTK6062 ####[place] [address] Osmolality [Osmolality] 270 mosm/kg Normal 266-309 [facility] Comment on above: Performed By: #### L WL9837, PYR0980 ####[place] [address] Potassium [Moles/Vol] 4.0 mmol/L Normal 3.6-5.0 [facility] Comment on above: Performed By: #### L AY9418, OVE7930 ####[place] [address] Protein [Mass/Vol] 6.5 g/dL Normal 6.1-7.8 [facility] Comment on above: Performed By: #### L UY2232, BXA2782 ####[place] [address] Sodium [Moles/Vol] 133 mmol/L Low 135-145 [facility] Comment on above: Performed By: #### L VO3556, PYP9937 ####[place] [address] Urea nitrogen [Mass/Vol] 9 mg/dL Normal 2-32 [facility] Comment on above: Performed By: #### L JR7338, GXR1277 ####[place] [address] Comprehensive Metabolic Pane merritt 10-04-2024 Bilirubin [Mass/Vol] 1.8 mg/dL High 0.2 - 1 .0 mg/dL [facility] Interpretation and review of laboratory results Abnormal [facility] Osmolality Calc [Osmolality] 270 266 - 309 [facility] Urea nitrogen/Creatinine [Mass ratio] 8 mg/mg Low 10 - 20 [facility] LIPASEon 10-04-2024 Lipase [Catalytic activity/Vol] 53 U/L Normal 11-82 [facility] Comment on above: Performed By: #### L UR1960 ####[facility] [place] [address] Lipaseon 10-04-2024 Lipase [Catalytic activity/Vol] 53 U/L 11 - 82 U/L [facility] XR Abdomen Supine and Uprigh ton 10-04-2024 [facility] [address] [place] [address] Radiology PATIENT NAME: Carolina Hightower MR#: [id number] PROCEDURE DATE: 10/04/2024 ROOM#: LTX ORDERING PHYS: [...] Zimmer MD jp TD: 10/04/2024 JOB #: [id number] Radiology Page 1 of 1 COPY [facility] Saud Pierre MD - 10/04/2024 [place] [address] Radiology PATIENT NAME: Carolina Hightower MR#: [id number] PROCEDURE DATE: 10/04/2024 ROOM#: [id number] ORDERING PHYS: [...] Zimmer MD jp TD: 10/04/2024 JOB #: [id number] Radiology Page 1 of 1 COPY [facility] Radiology Study observation (narrative) [facility] XR Abdomen Supine and Uprigh tOrdered By: Saud Pierre on 10-04-2024 [facility] Work Phone: XR KUB FLAT AND UPRIGHTon XR KUB FLAT AND UPRIGHT Normal [facility] Vascular Procedureon 025 [facility] Radiology Study observation (narrative) [facility] 12 Lead EKG - ED (Initial EK G)on 09-28-2024 [facility] ED Test Date: 2024-09-28 Pat Name: CAROLINA HIGHTOWER Department: EMERGENCY DEPARTMENT Room: Gender: Female [employer] Maker: Ambreen powell : 1975 Requested By: PETE PONCE Order Number: [id number] Yoana MD: Anjelica Bonilla MD Measurements Intervals [place] Rate: 61 P: 59 [place]: 182 QRS: 24 QRSD: 90 T: 38 QT: 442 QTc: 447 Interpretive Statements SINUS RHYTHM No previous ECG available for comparison Electronically Signed On 09-28-2024 11:20:04 EST by Anjelica Sterling MD, MD - 09/28/2024 [facility] ED Test Date: 2024-09-28 Pat Name: CAROLINA HIGHTOWER Department: EMERGENCY DEPARTMENT Room: Gender: Female [employer] Maker: Ambreen powell : 1975 Requested By: PETE PONCE Order Number: [id number] Reading MD: Anjelica Bonilla MD Measurements Intervals [place] Rate: 61 P: 59 [place]: 182 QRS: 24 QRSD: 90 T: 38 QT: 442 QTc: 447 Interpretive Statements SINUS RHYTHM No previous ECG available for comparison Electronically Signed On 09-28-2024 11:20:04 EST by Anjelica Bonilla MD [facility] 12 Lead EKG - ED (Initial EK G)Ordered By: Anjelica Bonilla on 09-28-2024 [facility] Work Phone: AMMONIAon 09-28-2024 Ammonia (P) [Moles/Vol] 63 umol/L High 11-50 [facility] Comment on above: Order Comment: Colle ction has been rescheduled by [facility] at 09/28/2024 11:10 Reason: noanswer Performed By: #### L UV5589, TZZ0119, IFP3199, IYK2371 ####[place] [address] Ammoniaon 09-28-2024 Interpretation and review of laboratory results Abnormal [facility] CBC w/ Differentialon 2024 Basophil Abs. 0.0 10*3/uL Normal 0.0-0.1 [facility] Comment on above: Order Comment: Varela d to and read back by JAKOB DUMONT (ed), at 11:48 on 09/28/2024, MHECollection has been rescheduled by [facility] at 09/28/2024 11:10 Reason: noanswer Performed By: #### L TG2686, KFY5206, OLB2340, LAI8434 ####[place] [address] Basophils/100 WBC (Bld) 0.5 % Normal 0.0-1.0 [facility] Comment on above: Order Comment: Varela d to and read back by JAKOB DUMONT (ed), at 11:48 on 09/28/2024, MHECollection has been rescheduled by [facility] at 09/28/2024 11:10 Reason: noanswer Performed By: #### L JZ3876, NCO8905, QVZ1995, JEL0941 ####[place] [address] Differential type Auto Normal [facility] Comment on above: Order Comment: Varela d to and read back by JAKOB DUMONT (ed), at 11:48 on 09/28/2024, MHECollection has been rescheduled by [facility] at 09/28/2024 11:10 Reason: noanswer Performed By: #### L UX1782, ITG5060, NZS4799, ODF4135 ####[facility] [address] [place] [address] Eosinophils (Bld) [#/Vol] 0.2 10*3/uL Normal 0.0-0.5 [facility] Comment on above: Order Comment: Varela d to and read back by JAKOB DUMONT (ed), at 11:48 on 09/28/2024, MHECollection has been rescheduled by [facility] at 09/28/2024 11:10 Reason: noanswer Performed By: #### L BZ9364, OFJ3745, HPN8207, CCG9432 ####[place] [address] Eosinophils/100 WBC (Bld) 3.7 % Normal 0.3-5.0 [facility] Comment on above: Order Comment: Varela d to and read back by JAKOB DUMONT (ed), at 11:48 on 09/28/2024, MHECollection has been rescheduled by [facility] at 09/28/2024 11:10 Reason: noanswer Performed By: #### L SY8162, GEN3216, UUR9226, UYJ9465 ####[place] [address] Erythrocyte distribution width (RBC) [Ratio] 16.5 % Normal 10.7-18.7 [facility] Comment on above: Order Comment: Varela d to and read back by JAKOB DUMONT (ed), at 11:48 on 09/28/2024, MHECollection has been rescheduled by [facility] at 09/28/2024 11:10 Reason: noanswer Performed By: #### L XB2618, HEI4421, QTD1861, KQE0719 ####[place] [address] Hematocrit (Bld) [Volume fraction] 38.1 % Normal 33.0-51.0 [facility] Comment on above: Order Comment: Varela d to and read back by JAKOB DUMONT (ed), at 11:48 on 09/28/2024, MHECollection has been rescheduled by [facility] at 09/28/2024 11:10 Reason: noanswer Performed By: #### L PT2433, NOK8081, VQZ2040, DPO3698 ####[address]AB[address] [address] Hemoglobin (Bld) [Mass/Vol] 12.7 g/dL Normal 12.0-16.0 [facility] Comment on above: Order Comment: Varela d to and read back by JAKOB DUMONT (ed), at 11:48 on 09/28/2024, MHECollection has been rescheduled by [facility] at 09/28/2024 11:10 Reason: noanswer Performed By: #### L QN5149, RWF6115, VLX3919, BIR5581 ####[place] [address] Lymphocytes (Bld) [#/Vol] 0.7 10*3/uL Low 1.1-5.0 [facility] Comment on above: Order Comment: Varela d to and read back by JAKOB DUMONT (ed), at 11:48 on 09/28/2024, MHECollection has been rescheduled by [facility] at 09/28/2024 11:10 Reason: noanswer Performed By: #### L LB3744, NWU5908, EEB9497, IJE9626 ####[place] [address] Lymphocytes/100 WBC (Bld) 13.8 % Low 24.0-44.0 [facility] Comment on above: Order Comment: Varela d to and read back by JAKOB DUMONT (ed), at 11:48 on 09/28/2024, MHECollection has been rescheduled by [facility] at 09/28/2024 11:10 Reason: noanswer Performed By: #### L TV1344, VOX6578, VBP9980, WPF6379 ####[address]AB[address] [address] MCH (RBC) [Entitic mass] 32.5 pg Normal 26.0-34.0 [facility] Comment on above: Order Comment: Varela d to and read back by JAKOB DUMONT (ed), at 11:48 on 09/28/2024, MHECollection has been rescheduled by [facility] at 09/28/2024 11:10 Reason: noanswer Performed By: #### L RL4519, HLD8861, JSV5654, QXG8522 ####[place] [address] MCHC (RBC) [Mass/Vol] 33.4 g/dL Normal 32.0-36.0 [facility] Comment on above: Order Comment: Varela d to and read back by JAKOB DUMONT (ed), at 11:48 on 09/28/2024, MHECollection has been rescheduled by [facility] at 09/28/2024 11:10 Reason: noanswer Performed By: #### L NY2368, FOE4902, LMQ8885, VEK3042 ####[place] [address] MCV (RBC) [Entitic vol] 97.5 fL Normal 80.0-100.0 [facility] Comment on above: Order Comment: Varela d to and read back by JAKOB DUMONT (ed), at 11:48 on 09/28/2024, MHECollection has been rescheduled by [facility] at 09/28/2024 11:10 Reason: noanswer Performed By: #### L ZG8234, SLM7320, DSI8687, KKO8423 ####[place] [address] Monocytes (Bld) [#/Vol] 0.4 10*3/uL Normal 0.0-1.4 [facility] Comment on above: Order Comment: Varela d to and read back by JAKOB DUMONT (ed), at 11:48 on 09/28/2024, MHECollection has been rescheduled by [facility] at 09/28/2024 11:10 Reason: noanswer Performed By: #### L PL3885, JTP1957, EGO8486, NNJ4352 ####[place] [address] Monocytes/100 WBC (Bld) 8.5 % Normal 2.1-13.3 [facility] Comment on above: Order Comment: Varela d to and read back by JAKOB DUMONT (ed), at 11:48 on 09/28/2024, MHECollection has been rescheduled by [facility] at 09/28/2024 11:10 Reason: noanswer Performed By: #### L UB0600, MDU6276, WCG4112, QQN2446 ####[facility] [address] [address] Neutrophils, Abs. 3.8 10*3/uL Normal 1.5-8.5 [facility] Comment on above: Order Comment: Varela d to and read back by JAKOB DUMONT (ed), at 11:48 on 09/28/2024, MHECollection has been rescheduled by [facility] at 09/28/2024 11:10 Reason: noanswer Performed By: #### L YZ9452, AWA9719, UMG2906, PII1839 ####[facility] [address] [address] Neutrophils/100 WBC (Bld) 73.6 % High 35.0-66.0 [facility] Comment on above: Order Comment: Varela d to and read back by JAKOB DUMONT (ed), at 11:48 on 09/28/2024, MHECollection has been rescheduled by [facility] at 09/28/2024 11:10 Reason: noanswer Performed By: #### L ST0075, MZO4515, KRN9683, LID7701 ####[facility] [address] [address] Platelet Cnt 42 10*3/uL Critically low 150-450 [facility] Comment on above: Order Comment: Varela d to and read back by JAKOB DUMONT (ed), at 11:48 on 09/28/2024, MHECollection has been rescheduled by [facility] at 09/28/2024 11:10 Reason: noanswer Performed By: #### L SM1115, FDV5188, KJV1577, NKR5399 ####[place] [address] Platelet mean volume (Bld) [Entitic vol] 9.2 fL Normal 6.5-10.0 [facility] Comment on above: Order Comment: Varela d to and read back by JAKOB DUMONT (ed), at 11:48 on 09/28/2024, MHECollection has been rescheduled by [facility] at 09/28/2024 11:10 Reason: noanswer Performed By: #### L VG3292, VLH4719, UVX9860, GUA8209 ####[place] [address] RBC (Bld) [#/Vol] 3.91 10*6/uL Low 4.00-5.20 [facility] Comment on above: Order Comment: Varela d to and read back by JAKOB DUMONT (ed), at 11:48 on 09/28/2024, MHECollection has been rescheduled by [facility] at 09/28/2024 11:10 Reason: noanswer Performed By: #### L ZW6712, RFC8761, NOA3271, WLB6020 ####[place] [address] WBC (Bld) [#/Vol] 5.1 10*3/uL Normal 4.5-11.0 [facility] Comment on above: Order Comment: Varela d to and read back by JAKOB DUMONT (ed), at 11:48 on 09/28/2024, MHECollection has been rescheduled by [facility] at 09/28/2024 11:10 Reason: noanswer Performed By: #### L EO7744, DMX1938, YTM2114, WRO3023 ####[place] [address] CBC w/Differentialon 025 Basophils (Bld) [#/Vol] 0.0 10*3/uL 0.0 - 0.1 10*3/uL [facility] Basophils/100 WBC (Bld) 0.5 % 0.0 - 1.0 % [facility] Differential cell count method Nom (Bld) Auto [facility] Eosinophils (Bld) [#/Vol] 0.2 10*3/uL 0.0 - 0.5 10*3/uL [facility] Eosinophils/100 WBC (Bld) 3.7 % 0.3 - 5.0 % [facility] Erythrocyte distribution width (RBC) [Ratio] 16.5 % 10.7 - 18.7 % [facility] Hematocrit (Bld) [Volume fraction] 38.1 % 33.0 - 51.0 % [facility] Hemoglobin (Bld) [Mass/Vol] 12.7 g/dL 12.0 - 16.0 g/dL [facility] Interpretation and review of laboratory results Abnormal [facility] Lymphocytes (Bld) [#/Vol] 0.7 10*3/uL Low 1.1 - 5.0 10*3/uL [facility] Lymphocytes/100 WBC (Bld) 13.8 % Low 24.0 - 44.0 % [facility] MCH (RBC) [Entitic mass] 32.5 pg 26.0 - 34.0 pg [facility] MCHC (RBC) [Mass/Vol] 33.4 g/dL 32.0 - 36.0 g/dL [facility] MCV (RBC) [Entitic vol] 97.5 fL 80.0 - 100.0 fL [facility] Monocytes (Bld) [#/Vol] 0.4 10*3/uL 0.0 - 1.4 10*3/uL [facility] Monocytes/100 WBC (Bld) 8.5 % 2.1 - 13.3 % [facility] Neutrophils (Bld) [#/Vol] 3.8 10*3/uL 1.5 - 8.5 10*3/uL [facility] Neutrophils/100 WBC (Bld) 73.6 % High 35.0 - 66.0 % [facility] Platelet mean volume (Bld) [Entitic vol] 9.2 fL 6.5 - 10.0 fL [facility] Platelets (Bld) [#/Vol] 42 10*3/uL Critically low 150 - 450 10*3/uL [facility] RBC (Bld) [#/Vol] 3.91 10*6/uL Low 4.00 - 5.2 0 10*6/uL [facility] WBC (Bld) [#/Vol] 5.1 10*3/uL 4.5 - 11.0 10*3/uL [facility] Called to and read b ack by PLTJAKOB (ed), at 11:48 on 09/28/2024, MHE Collection has been rescheduled by [facility] at 09/28/2024 11:10 Reason: no answer [facility] COMPREHENSIVE METABOLIC PANE [place] 09-28-2024 Albumin [Mass/Vol] 3.1 g/dL Low 3.2-5.0 [facility] Comment on above: Order Comment: Yahaira bradley has been rescheduled by [facility] at 09/28/2024 11:10 Reason: noanswer Performed By: #### L ZG8965, GSL7145, VZQ3385, OZR4416 ####[place] [address] Albumin/Globulin [Mass ratio] 0.9 {ratio} Normal [facility] Comment on above: Order Comment: Yahaira bradley has been rescheduled by [facility] at 09/28/2024 11:10 Reason: noanswer Performed By: #### L MI8196, PXF5859, ESX9097, CQV0425 ####[place] [address] ALP [Catalytic activity/Vol] 141 U/L High 42-121 [facility] Comment on above: Order Comment: Yahaira ctlelo has been rescheduled by [facility] at 09/28/2024 11:10 Reason: noanswer Performed By: #### L PK9824, HPV3394, GQC6144, XZF0329 ####[place] [address] [place] [address] ALT [Catalytic activity/Vol] 75 U/L High 10-60 [facility] Comment on above: Order Comment: Yahaira bradley has been rescheduled by [facility] at 09/28/2024 11:10 Reason: noanswer Performed By: #### L DR6903, CMD8869, AGJ2277, AHL8659 ####[place] [address] Anion gap [Moles/Vol] 6 mmol/L Normal [facility] Comment on above: Order Comment: Yahaira bradley has been rescheduled by [facility] at 09/28/2024 11:10 Reason: noanswer Performed By: #### L QT4365, KUC0965, XJP0828, SSO1012 ####[place] [address] AST [Catalytic activity/Vol] 111 U/L High 10-42 [facility] Comment on above: Order Comment: Yahaira bradley has been rescheduled by [facility] at 09/28/2024 11:10 Reason: noanswer Performed By: #### L BQ6139, GIP6538, LPK4064, PQY6185 ####[place] [address] B/C 9 Low 10-20 [facility] Comment on above: Order Comment: Yahaira bradley has been rescheduled by [facility] at 09/28/2024 11:10 Reason: noanswer Performed By: #### L TW6677, YOA2791, GRD6849, JUL5089 ####[place] [address] Bilirubin.direct [Mass/Vol] 2.1 mg/dL High 0.2-1.0 [facility] Comment on above: Order Comment: Yahaira bradley has been rescheduled by [facility] at 09/28/2024 11:10 Reason: noanswer Performed By: #### L UK5180, FWB3662, RZS1807, WJB6047 ####[place] [address] Calcium [Mass/Vol] 8.8 mg/dL Normal 8.5-10.5 [facility] Comment on above: Order Comment: Yahaira bradley has been rescheduled by [facility] at 09/28/2024 11:10 Reason: noanswer Performed By: #### L IE4025, OPJ7777, ZBI7572, LLT7438 ####[facility] [address] [place] [address] Chloride [Moles/Vol] 104 mmol/L Normal 101-111 [facility] Comment on above: Order Comment: Yahaira bradley has been rescheduled by [facility] at 09/28/2024 11:10 Reason: noanswer Performed By: #### L NF6651, LLE5878, JMF9406, ARK0903 ####[facility] [address] [place] [address] CO2 [Moles/Vol] 24 mmol/L Normal 21-31 [facility] Comment on above: Order Comment: Yahaira bradley has been rescheduled by [facility] at 09/28/2024 11:10 Reason: noanswer Performed By: #### L BG1800, ANQ0331, ZQI1487, DYE1352 ####[facility] [address] [place] [address] Creatinine [Mass/Vol] 1.0 mg/dL Normal 0.4-1.0 [facility] Comment on above: Order Comment: Yahaira bradley has been rescheduled by [facility] at 09/28/2024 11:10 Reason: noanswer Performed By: #### L XM0982, ZGX3239, YON7969, DNI2034 ####[facility] [address] [place] [address] GFR/1.73 sq M.predicted MDRD (S/P/Bld) [Vol rate/Area] 58 mL/min/{1.73_m2} Normal [facility] Comment on above: Order Comment: Yahaira bradley has been rescheduled by [facility] at 09/28/2024 11:10 Reason: noanswer Result Comment: *The estimated Glomerular Filtration Rate(EGFR) may not be accurate for children under the age of 18 yrs. To estimate the GFR for -Americans multiply the result provided by 1.21.Stage 1 90 mL/min or greaterStage 2 60-89 mL/minStage 3 30-59 mL/minStage 4 15-29 mL/minStage 5 14 mL/min or less Performed By: #### L NJ4429, LEV0376, OCV6562, XTW9441 ####[address] [address] [address] Glucose [Mass/Vol] 155 mg/dL High 70-110 [facility] Comment on above: Order Comment: Yahaira bradley has been rescheduled by [facility] at 09/28/2024 11:10 Reason: noanswer Performed By: #### L FY8269, UOF9400, XED9177, BOI4178 ####BABATUN[facility] [address] [address] Osmolality [Osmolality] 270 mosm/kg Normal 266-309 [facility] Comment on above: Order Comment: Yahaira bradley has been rescheduled by [facility] at 09/28/2024 11:10 Reason: noanswer Performed By: #### L LD9852, SDL2125, ROZ7037, PGY5510 ####[place] [address] Potassium [Moles/Vol] 3.6 mmol/L Normal 3.6-5.0 [facility] Comment on above: Order Comment: Yahaira bradley has been rescheduled by [facility] at 09/28/2024 11:10 Reason: noanswer Performed By: #### L RB6937, THP2309, QXE7134, VLJ9465 ####BABATUN[place] [address] [address] Protein [Mass/Vol] 6.6 g/dL Normal 6.1-7.8 [facility] Comment on above: Order Comment: Yahaira bradley has been rescheduled by [facility] at 09/28/2024 11:10 Reason: noanswer Performed By: #### L OU5965, NAI4788, IOY5106, USM2420 ####BABATUN[place] [address] [address] Sodium [Moles/Vol] 134 mmol/L Low 135-145 [facility] Comment on above: Order Comment: Yahaira bradley has been rescheduled by [facility] at 09/28/2024 11:10 Reason: noanswer Performed By: #### L TQ6700, DTE2686, FSN1940, TCV8810 ####[facility] [address] [place] [address] Urea nitrogen [Mass/Vol] 9 mg/dL Normal 2-32 [facility] Comment on above: Order Comment: Yahaira bradley has been rescheduled by [facility] at 09/28/2024 11:10 Reason: noanswer Performed By: #### L GX4991, YOT0142, OUX2053, MQA7945 ####[facility] [address] [place] [address] Comprehensive Metabolic Pane merritt 09-28-2024 Albumin [Mass/Vol] 3.1 g/dL Low 3.2 - 5.0 g/dL [facility] Albumin/Globulin [Mass ratio] 0.9 {ratio} [facility] ALP [Catalytic activity/Vol] 141 U/L High 42 - 121 [iU]/L [facility] ALT [Catalytic activity/Vol] 75 U/L High 10 - 60 [iU]/L [facility] Anion gap [Moles/Vol] 6 mmol/L [facility] AST [Catalytic activity/Vol] 111 U/L High 10 - 42 [iU]/L [facility] Bilirubin [Mass/Vol] 2.1 mg/dL High 0.2 - 1 .0 mg/dL [facility] Calcium [Mass/Vol] 8.8 mg/dL 8.5 - 10. 5 mg/dL [facility] Chloride [Moles/Vol] 104 mmol/L 101 - 1 11 mmol/L [facility] CO2 [Moles/Vol] 24 mmol/L 21 - 31 mmol/L [facility] Creatinine [Mass/Vol] 1.0 mg/dL 0.4 - 1.0 mg/dL [facility] GFR/1.73 sq M.predicted MDRD (S/P/Bld) [Vol rate/Area] 58 mL/min/{1.73_m2} [facility] Comment on above: *The estimated Glome rular [...] 155 mg/dL High 70 - 110 mg/dL [facility] Interpretation and review of laboratory results Abnormal [facility] Osmolality Calc [Osmolality] 270 266 - 309 [facility] Potassium [Moles/Vol] 3.6 mmol/L 3.6 - 5.0 mmol/L [facility] Protein [Mass/Vol] 6.6 g/dL 6.1 - 7.8 g/dL [facility] Sodium [Moles/Vol] 134 mmol/L Low 135 - 145 mmol/L [facility] Urea nitrogen [Mass/Vol] 9 mg/dL 2 - 32 mg/dL [facility] Urea nitrogen/Creatinine [Mass ratio] 9 mg/mg Low 10 - 20 [facility] Collection has been rescheduled by [facility] at 09/28/2024 11:10 Reason: no answer [facility] Fingerstick Glucoseon 2024 Glucose [Mass/Vol] 137 mg/dL High 70 - 110 mg/dL [facility] Interpretation and review of laboratory results Abnormal [facility] GLUCOSE, GLUCOMETERon 2024 Glucose [Mass/Vol] 137 mg/dL High 70-110 [facility] Comment on above: Performed By: #### L KR4864 ####[place] [address] LACTIC ACIDon 09-28-2024 Lactate [Moles/Vol] 1.3 mmol/L Normal 0.5-1.9 [facility] Comment on above: Order Comment: Colle ction has been rescheduled by [facility] at 09/28/2024 11:10 Reason: noanswer Performed By: #### L TM0588, WII4408 ####[place] [address] No Panel Informationon 09-28 Collection has been rescheduled by [facility] at 09/28/2024 11:10 Reason: no answer [facility] Collection has been rescheduled by [facility] at 09/28/2024 11:10 Reason: no answer [facility] PROCALCITONIN, Son PROCALCITONIN, S 0.15 ng/mL Normal [facility] Comment on above: Order Comment: Yahaira bradley has been rescheduled by [facility] at 09/28/2024 11:10 Reason: noanswer [...] or septic shock. Performed By: #### L JF5708, FJM0866 ####[facility] [address] [place] [address] PT AND APTTon 09-28-2024 aPTT Coag (Bld) [Time] 38.6 s High 24.2-34.2 [facility] Comment on above: Order Comment: Yahaira bradley has been rescheduled by [facility] at 09/28/2024 11:10 Reason: noanswer Performed By: #### L LJ1964, HPH7337, RCM4311, QTL7733 ####[facility] [address] [place] [address] INR Coag (PPP) [Relative time] 1.6 {INR} High 0.9-1.1 [facility] Comment on above: LEVEL OF THERAPY IND ICATIONS TARGET INR RANGE STANDARD DOSE TREATMENT OF VENOUS THROMBOSIS 2.0-3.0 TREATMENT OF PULMONARY EMBOLUS PROPHYLAXIS AGAINST VENOUS THROMBOSIS BY SYSTEMIC EMBOLIZATION . HIGH DOSE HIGH RISK PATIENTS WITH 2.5-3.5 MECHANICAL HEART VALVES Order Comment: Yahaira bradley has been rescheduled by [facility] at 09/28/2024 11:10 Reason: noanswer Result Comment: CORRIE Luciano OF THERAPY INDICATIONS TARGET INR RANGESTANDARD DOSE TREATMENT OF VENOUS THROMBOSIS 2.0-3.0 TREATMENT OF PULMONARY EMBOLUS PROPHYLAXIS AGAINST VENOUS THROMBOSIS BY SYSTEMIC EMBOLIZATION .HIGH DOSE HIGH RISK PATIENTS WITH 2.5-3.5 MECHANICAL HEART VALVES Performed By: #### L CM7878, YXM9889, WLL5760, HGG6625 ####[facility] [address] [place] [address] PT Coag (PPP) [Time] 18.5 s High 10.1-13.7 [facility] Comment on above: Order Comment: Yahaira ction has been rescheduled by [facility] at 09/28/2024 11:10 Reason: noanswer Performed By: #### L OY6108, RIB8026, VMO6475, ABX3304 ####[facility] [address] [place] [address] PT/APTT/INRon 09-28-2024 aPTT Coag (PPP) [Time] 38.6 s High 24.2 - 34.2 s [facility] Interpretation and review of laboratory results Abnormal [facility] Collection has been rescheduled by [facility] at 09/28/2024 11:10 Reason: no answer [facility] Procalcitonin, QN, Son 09-28 Procalcitonin [Mass/Vol] 0.15 ng/mL [facility] Comment on above: . <0.05 ng/mL Healthy [...] Troponin I HS, baseline 3 Normal 0-15 [facility] Comment on above: Order Comment: Yahaira ction has been rescheduled by [facility] at 09/28/2024 11:10 Reason: noanswer Result Comment: For Males 20 ng/L is the AMI cutoff for males.For Females 15 ng/L is the AMI cutoff for females. Performed By: #### L IO4351 ####[place] [address] Troponin I, HS, baselineon 0 09-28-2024 Troponin I.cardiac High sensitivity method [Mass/Vol] 3 0 - 15 [facility] Comment on above: For Males 20 ng/L is the AMI cutoff for males. For Females 15 ng/L is the AMI cutoff for females. CBC w/ Differentialon 2024 Basophil Abs. 0.0 10*3/uL Normal 0.0-0.1 [facility] Comment on above: Performed By: #### L [id number], [id number], [id number], [id number] ####[place] [address] Basophils/100 WBC (Bld) 0.6 % Normal 0.0-1.0 [facility] Comment on above: Performed By: #### L [id number], [id number], [id number], [id number] ####[place] [address] Differential type Auto Normal [facility] Comment on above: Performed By: #### L [id number], [id number], [id number], [id number] ####[place] [address] Eosinophils (Bld) [#/Vol] 0.3 10*3/uL Normal 0.0-0.5 [facility] Comment on above: Performed By: #### L [id number], [id number], [id number], [id number] ####[place] [address] Eosinophils/100 WBC (Bld) 3.9 % Normal 0.3-5.0 [facility] Comment on above: Performed By: #### L GO2659, [id number], [id number], [id number] ####[place] [address] Erythrocyte distribution width (RBC) [Ratio] 15.7 % Normal 10.7-18.7 [facility] Comment on above: Performed By: #### L [id number], [id number], [id number], [id number] ####[place] [address] Hematocrit (Bld) [Volume fraction] 38.3 % Normal 33.0-51.0 [facility] Comment on above: Performed By: #### L SJ1291, SOC4961, GZL3484, QDR0145 ####[place] [address] Hemoglobin (Bld) [Mass/Vol] 13.0 g/dL Normal 12.0-16.0 [facility] Comment on above: Performed By: #### L ZO5030, GJO8093, ZNM2208, KCI6289 ####[place] [address] Lymphocytes (Bld) [#/Vol] 0.9 10*3/uL Low 1.1-5.0 [facility] Comment on above: Performed By: #### L NG7776, HRB3811, USY7424, PZK9530 ####[place] [address] Lymphocytes/100 WBC (Bld) 14.4 % Low 24.0-44.0 [facility] Comment on above: Performed By: #### L FY4580, UYL4807, UFH2642, VHV1544 ####[place] [address] MCH (RBC) [Entitic mass] 32.5 pg Normal 26.0-34.0 [facility] Comment on above: Performed By: #### L NG2964, MBO1222, ARW0058, YKP7894 ####[place] [address] MCHC (RBC) [Mass/Vol] 33.9 g/dL Normal 32.0-36.0 [facility] Comment on above: Performed By: #### L QL3769, YSN3303, MCM7022, WVP3562 ####[address] [address] MCV (RBC) [Entitic vol] 96.1 fL Normal 80.0-100.0 [facility] Comment on above: Performed By: #### L DZ1274, TAB0578, XST9866, GYD6183 ####[place] [address] Monocytes (Bld) [#/Vol] 0.7 10*3/uL Normal 0.0-1.4 [facility] Comment on above: Performed By: #### L EB6845, EHP2997, QLK8188, GJR1783 ####[place] [address] Monocytes/100 WBC (Bld) 10.0 % Normal 2.1-13.3 [facility] Comment on above: Performed By: #### L VZ6931, CYL5571, HKH2003, EOA3204 ####[place] [address] Neutrophils, Abs. 4.7 10*3/uL Normal 1.5-8.5 [facility] Comment on above: Performed By: #### L IO5268, OMB3262, TRI3703, NKF5046 ####[place] [address] Neutrophils/100 WBC (Bld) 71.1 % High 35.0-66.0 [facility] Comment on above: Performed By: #### L VD7123, DTH0458, YDT9059, VZK0278 ####[place] [address] Platelet Cnt 51 10*3/uL Low 150-450 [facility] Comment on above: Performed By: #### L UP3538, MVL4184, KXV1976, KTF4172 ####[address] [address] Platelet mean volume (Bld) [Entitic vol] 9.2 fL Normal 6.5-10.0 [facility] Comment on above: Performed By: #### L JT8474, FIC7729, NBP8623, ZAY4140 ####[place] [address] RBC (Bld) [#/Vol] 3.99 10*6/uL Low 4.00-5.20 [facility] Comment on above: Performed By: #### L KK8463, NUN2475, XOT1821, UEH8234 ####[place] [address] WBC (Bld) [#/Vol] 6.6 10*3/uL Normal 4.5-11.0 [facility] Comment on above: Performed By: #### L XP8742, OQB9468, UGR9089, RPT8362 ####[place] [address] COMPREHENSIVE METABOLIC PANE Merritt 09-27-2024 Albumin [Mass/Vol] 3.1 g/dL Low 3.2-5.0 [facility] Comment on above: Performed By: #### L WS8619, LWL5029, UYH4343, CTJ1684 ####[place] [address] Albumin/Globulin [Mass ratio] 0.8 {ratio} Normal [facility] Comment on above: Performed By: #### L XA5268, SRL7892, NWX4238, PIW3455 ####[place] [address] ALP [Catalytic activity/Vol] 141 U/L High 42-121 [facility] Comment on above: Performed By: #### L HA5177, PHF2639, NCB4247, AQR7282 ####[place] [address] ALT [Catalytic activity/Vol] 74 U/L High 10-60 [facility] Comment on above: Performed By: #### L IB1405, ILK4071, DNE3066, HDB4822 ####[place] [address] Anion gap [Moles/Vol] 5 mmol/L Normal [facility] Comment on above: Performed By: #### L YS1079, IVR8213, JKS4540, TLK3901 ####[place] [address] AST [Catalytic activity/Vol] 113 U/L High 10-42 [facility] Comment on above: Performed By: #### L YG2562, NID2845, ZQU3191, DVH4092 ####[place] [address] B/C 9 Low 10-20 [facility] Comment on above: Performed By: #### L PK5927, AXQ8364, JUX0401, NNX4071 ####[place] [address] Bilirubin.direct [Mass/Vol] 2.0 mg/dL High 0.2-1.0 [facility] Comment on above: Performed By: #### L SH5711, FVU6261, BNQ4958, OQM8022 ####[place] [address] Calcium [Mass/Vol] 9.0 mg/dL Normal 8.5-10.5 [facility] Comment on above: Performed By: #### L NH1928, DSG4680, QSV5849, HPS4117 ####[facility] [place] [address] Chloride [Moles/Vol] 108 mmol/L Normal 101-111 [facility] Comment on above: Performed By: #### L ZQ0019, LCI0282, NRZ1117, JIX1721 ####[place] [address] CO2 [Moles/Vol] 25 mmol/L Normal 21-31 [facility] Comment on above: Performed By: #### L VF3572, TYC1946, XGH0948, MEP8563 ####[place] [address] Creatinine [Mass/Vol] 0.8 mg/dL Normal 0.4-1.0 [facility] Comment on above: Performed By: #### L VR9629, LMX9292, XCV2465, OGG8003 ####[place] [address] [address] GFR/1.73 sq M.predicted MDRD (S/P/Bld) [Vol rate/Area] 76 mL/min/{1.73_m2} Normal [facility] Comment on above: Result Comment: *The estimated Glomerular Filtration Rate(EGFR) may not be accurate for children under the age of 18 yrs. To estimate the GFR for -Americans multiply the result provided by 1.21.Stage 1 90 mL/min or greaterStage 2 60-89 mL/minStage 3 30-59 mL/minStage 4 15-29 mL/minStage 5 14 mL/min or less Performed By: #### L IW4841, VAP7852, QBD1865, LTJ6273 ####[place] [address] [address] Glucose [Mass/Vol] 87 mg/dL Normal 70-110 [facility] Comment on above: Performed By: #### L DN0267, JWG3988, ZWG4400, EFR2802 ####[place] [address] [address] Osmolality [Osmolality] 273 mosm/kg Normal 266-309 [facility] Comment on above: Performed By: #### L OC7039, GNE0735, UGY9011, YFJ6443 ####[place] [address] [address] Potassium [Moles/Vol] 3.9 mmol/L Normal 3.6-5.0 [facility] Comment on above: Performed By: #### L WG3899, ULX8643, IGE2328, JHV7381 ####[place] [address] [address] Protein [Mass/Vol] 7.0 g/dL Normal 6.1-7.8 [facility] Comment on above: Performed By: #### L SL3374, VLQ0197, MKR6509, CVE8728 ####[place] [address] [address] Sodium [Moles/Vol] 138 mmol/L Normal 135-145 [facility] Comment on above: Performed By: #### L KD6430, XIG8252, WTB4002, BMA0318 ####[facility] [address] [place] [address] Urea nitrogen [Mass/Vol] 7 mg/dL Normal 2-32 [facility] Comment on above: Performed By: #### L BT1929, FHK7078, ZKW8235, DOZ3632 ####[place] [address] MAGNESIUMon 09-27-2024 Magnesium [Mass/Vol] 1.6 mg/dL Low 1.7-2.8 [facility] Comment on above: Performed By: #### L JN9981, PDR1478, LED3380, YMC8114 ####[place] [address] PT INRon 09-27-2024 INR Coag (PPP) [Relative time] 1.5 {INR} High 0.9-1.1 [facility] Comment on above: Result Comment: CORRIE Luciano OF THERAPY INDICATIONS TARGET INR RANGESTANDARD DOSE TREATMENT OF VENOUS THROMBOSIS 2.0-3.0 TREATMENT OF PULMONARY EMBOLUS PROPHYLAXIS AGAINST VENOUS THROMBOSIS BY SYSTEMIC EMBOLIZATION .HIGH DOSE HIGH RISK PATIENTS WITH 2.5-3.5 MECHANICAL HEART VALVES Performed By: #### L DZ7166, ZGF6081, BEX9192, IHH6232 ####[place] [address] PT Coag (PPP) [Time] 18.1 s High 10.1-13.7 [facility] Comment on above: Performed By: #### L MU7910, MEC6435, OBP1227, MTD3664 ####[place] [address] Vascular Procedureon 025 : Technically successful ultrasound-guided therapeutic paracentesis with aspiration of 1650 cc of clear mike fluid. SIGNED: Ginger Milton MD 09/27/2024 11:30 AM [facility] INTERVENTIONAL RADIOLOGY REPORT PATIENT: Carolina Hightower DATE [...] provided using 1% buffered lidocaine. A 6.5 Nauruan non-locking Resolve pigtail catheter was advanced into the peritoneal space. 1650 cc of clear mike fluid were obtained. The catheter was removed intact. A dry sterile dressing was applied to the puncture site. The patient tolerated the procedure well and there were no immediate complications. The patient was given no IV albumin. FINDINGS: Moderate amount of free peritoneal fluid/ascites. [facility] Radiology Study observation (narrative) [facility] VASCULAR PROCEDUREon 024 VASCULAR PROCEDURE Normal [facility] VASCULAR PROCEDURE Normal [facility] Vascular Procedureon 024 [facility] Radiology Study observation (narrative) [facility] CBC w/ Differentialon 2023 Basophil Abs. 0.0 10*3/uL Normal 0.0-0.1 [facility] Comment on above: Performed By: #### L FB0947, VXL4746, MZK2043, SBJ3094, PZS6131 ####[place] [address] Basophils/100 WBC (Bld) 0.4 % Normal 0.0-1.0 [facility] Comment on above: Performed By: #### L QF5593, ORD5212, KYN4746, AHI8048, QEP0689 ####[place] [address] Differential type Auto Normal [facility] Comment on above: Performed By: #### L PW1365, OCF7074, IZB4411, LGB2572, YXF4084 ####[place] [address] Eosinophils (Bld) [#/Vol] 0.3 10*3/uL Normal 0.0-0.5 [facility] Comment on above: Performed By: #### L NI0084, EGZ8368, DXC8100, CWE4970, QLO5279 ####[place] [address] Eosinophils/100 WBC (Bld) 4.8 % Normal 0.3-5.0 [facility] Comment on above: Performed By: #### L VK8821, KRF8446, FRY4582, LXJ7707, BBJ8775 ####[place] [address] Erythrocyte distribution width (RBC) [Ratio] 15.8 % Normal 10.7-18.7 [facility] Comment on above: Performed By: #### L DN4745, HLX7144, PCH8200, VCX5004, KIQ9466 ####[place] [address] Hematocrit (Bld) [Volume fraction] 37.1 % Normal 33.0-51.0 [facility] Comment on above: Performed By: #### L LV1475, HXZ1465, IFK2750, LEG1636, REV2565 ####[place] [address] Hemoglobin (Bld) [Mass/Vol] 12.4 g/dL Normal 12.0-16.0 [facility] Comment on above: Performed By: #### L DI2341, HCG9155, QGN1923, EIF0312, LCR5362 ####[place] [address] Lymphocytes (Bld) [#/Vol] 0.9 10*3/uL Low 1.1-5.0 [facility] Comment on above: Performed By: #### L BL6770, NIS1358, ACU1805, KQR8501, VHH5746 ####[place] [address] Lymphocytes/100 WBC (Bld) 17.6 % Low 24.0-44.0 [facility] Comment on above: Performed By: #### L DI3834, WYV1626, AFM1366, BKN2441, OIX8404 ####[place] [address] MCH (RBC) [Entitic mass] 32.8 pg Normal 26.0-34.0 [facility] Comment on above: Performed By: #### L PZ6874, BFC6267, MIQ5055, TFR6486, LGP2564 ####[place] [address] MCHC (RBC) [Mass/Vol] 33.3 g/dL Normal 32.0-36.0 [facility] Comment on above: Performed By: #### L XC3897, AAY7200, BRT4183, CFU7108, RMB7422 ####[place] [address] MCV (RBC) [Entitic vol] 98.5 fL Normal 80.0-100.0 [facility] Comment on above: Performed By: #### L TU6960, TBD5181, WGJ3605, MBP6313, HNP4122 ####[place] [address] Monocytes (Bld) [#/Vol] 0.6 10*3/uL Normal 0.0-1.4 [facility] Comment on above: Performed By: #### L OA3611, SOV7001, DTK6850, JFE7300, JPQ1279 ####[place] [address] Monocytes/100 WBC (Bld) 11.0 % Normal 2.1-13.3 [facility] Comment on above: Performed By: #### L HK7042, UMN2266, RJU7075, WDU5369, SIZ7121 ####[place] [address] Neutrophils, Abs. 3.4 10*3/uL Normal 1.5-8.5 [facility] Comment on above: Performed By: #### L DF8380, MNX4413, JIP1504, CDZ3549, LZR1604 ####[place] [address] Neutrophils/100 WBC (Bld) 66.3 % High 35.0-66.0 [facility] Comment on above: Performed By: #### L JU8747, MZE7869, XKD7748, HJU8139, POT9350 ####[place] [address] Platelet Cnt 55 10*3/uL Low 150-450 [facility] Comment on above: Performed By: #### L LR8428, PJQ9476, TOD9864, VKN2280, LRZ9245 ####[place] [address] Platelet mean volume (Bld) [Entitic vol] 10.4 fL High 6.5-10.0 [facility] Comment on above: Performed By: #### L XF8515, LPG3921, OBZ7247, AFT7211, NQQ2404 ####[place] [address] RBC (Bld) [#/Vol] 3.77 10*6/uL Low 4.00-5.20 [facility] Comment on above: Performed By: #### L FC3242, PLU1163, HGB5299, YIM3411, GNJ9206 ####[place] [address] WBC (Bld) [#/Vol] 5.1 10*3/uL Normal 4.5-11.0 [facility] Comment on above: Performed By: #### L QI7326, OSI7296, OFS2482, VVU0259, RVH4870 ####[place] [address] COMPREHENSIVE METABOLIC PANE Merritt 09-11-2024 Albumin [Mass/Vol] 2.9 g/dL Low 3.2-5.0 [facility] Comment on above: Performed By: #### L PX2862, ESB6756, VCJ3123, LEC3000, IWA8071 ####[place] [address] Albumin/Globulin [Mass ratio] 0.8 {ratio} Normal [facility] Comment on above: Performed By: #### L BI1736, ZVD2022, HIR6574, VPW5900, JQA9241 ####[place] [address] ALP [Catalytic activity/Vol] 129 U/L High 42-121 [facility] Comment on above: Performed By: #### L WL7697, XAB8632, JGT4362, KPJ2875, EQW5673 ####[place] [address] ALT [Catalytic activity/Vol] 68 U/L High 10-60 [facility] Comment on above: Performed By: #### L YV2311, ALN6682, YLR7622, TOP4581, ZQT7598 ####[place] [address] Anion gap [Moles/Vol] 5 mmol/L Normal [facility] Comment on above: Performed By: #### L UJ2315, MNO9113, GIO3984, QDL8034, AJR7741 ####[place] [address] AST [Catalytic activity/Vol] 115 U/L High 10-42 [facility] Comment on above: Performed By: #### L MY5091, BTF0957, GGQ3547, GLY4201, CUD2351 ####[place] [address] B/C 10 Normal 10-20 [facility] Comment on above: Performed By: #### L RA8274, LFG2884, GCC2722, PKZ9655, JJE1608 ####[place] [address] Bilirubin.direct [Mass/Vol] 1.6 mg/dL High 0.2-1.0 [facility] Comment on above: Performed By: #### L WY6274, ONQ5305, JQW0280, OUE1648, XVW5965 ####[facility] [address] [place] [address] Calcium [Mass/Vol] 8.8 mg/dL Normal 8.5-10.5 [facility] Comment on above: Performed By: #### L UG5607, CST8792, FYB2813, FZF0148, IXR9072 ####[facility] [address] [place] [address] Chloride [Moles/Vol] 109 mmol/L Normal 101-111 [facility] Comment on above: Performed By: #### L JU4703, YHP4593, TEQ2168, RRI6644, RHU5601 ####[facility] [address] [place] [address] CO2 [Moles/Vol] 25 mmol/L Normal 21-31 [facility] Comment on above: Performed By: #### L HX8896, PHN0882, LUT4026, BKL2234, DYE6964 ####[address] [address] Creatinine [Mass/Vol] 1.0 mg/dL Normal 0.4-1.0 [facility] Comment on above: Performed By: #### L UI0840, KZY9073, BMA4649, MKH7747, YEZ0375 ####[address] [address] GFR/1.73 sq M.predicted MDRD (S/P/Bld) [Vol rate/Area] 58 mL/min/{1.73_m2} Normal [facility] Comment on above: Result Comment: *The estimated Glomerular Filtration Rate(EGFR) may not be accurate for children under the age of 18 yrs. To estimate the GFR for -Americans multiply the result provided by 1.21.Stage 1 90 mL/min or greaterStage 2 60-89 mL/minStage 3 30-59 mL/minStage 4 15-29 mL/minStage 5 14 mL/min or less Performed By: #### L JW9070, ZMO8795, EOO2532, PMW1618, ADV5406 ####[address] [address] Glucose [Mass/Vol] 83 mg/dL Normal 70-110 [facility] Comment on above: Performed By: #### L SB1611, ITF3916, SKB5307, JZG0839, EPC4765 ####[place] [address] Osmolality [Osmolality] 276 mosm/kg Normal 266-309 [facility] Comment on above: Performed By: #### L ZJ8806, MVC2368, DWH7571, NIT3330, DHD5566 ####[place] [address] Potassium [Moles/Vol] 3.9 mmol/L Normal 3.6-5.0 [facility] Comment on above: Performed By: #### L PL2184, BKU2992, QJR6892, PYT7890, TNN2138 ####[place] [address] Protein [Mass/Vol] 6.5 g/dL Normal 6.1-7.8 [facility] Comment on above: Performed By: #### L XE3050, NDG4733, CPF6577, KGE6017, QJE3816 ####[place] [address] Sodium [Moles/Vol] 139 mmol/L Normal 135-145 [facility] Comment on above: Performed By: #### L WO3324, OQK3190, CES1648, BKV6532, FIB6141 ####[place] [address] Urea nitrogen [Mass/Vol] 10 mg/dL Normal 2-32 [facility] Comment on above: Performed By: #### L UL1236, DXJ6831, POO0472, FZA7479, YGI7233 ####[place] [address] FERRITINon 09-11-2024 Ferritin [Mass/Vol] 41.1 ng/mL Normal 11.0-306.8 [facility] Comment on above: Performed By: #### L XX2262, QLD5623, RIW6515, TPQ8446, THH2549 ####[place] [address] IRON AND TOTAL IRON BINDING CAPACITYon 09-11-2024 % SATURATION 46 % Normal 15-55 [facility] Comment on above: Performed By: #### L CY7180, GRB0162, GSK5341, NQF7389, DVM5349 ####[place] [address] Iron [Mass/Vol] 132 ug/dL Normal 40-150 [facility] Comment on above: Performed By: #### L MA3219, PCK6315, YVE0059, OTE6888, IMD6904 ####[place] [address] IRON BIND. CAP.,TOT 287 ug/dL Normal 250-400 [facility] Comment on above: Performed By: #### L LH9382, RYN8516, FEF8312, ATA8541, PWG7460 ####[place] [address] Transferrin [Mass/Vol] 205.00 mg/dL Normal 192.00-382. 00 [facility] Comment on above: Performed By: #### L JG8410, VPW9260, VFK4438, FHF5539, EJW4779 ####[place] [address] UIBC 155 ug/dL Normal 150-375 [facility] Comment on above: Performed By: #### L OT3550, MEP4514, TQL5886, SRI5634, ZYW3490 ####[place] [address] PT INRon 09-11-2024 INR Coag (PPP) [Relative time] 1.4 {INR} High 0.9-1.1 [facility] Comment on above: Result Comment: CORRIE Luciano OF THERAPY INDICATIONS TARGET INR RANGESTANDARD DOSE TREATMENT OF VENOUS THROMBOSIS 2.0-3.0 TREATMENT OF PULMONARY EMBOLUS PROPHYLAXIS AGAINST VENOUS THROMBOSIS BY SYSTEMIC EMBOLIZATION .HIGH DOSE HIGH RISK PATIENTS WITH 2.5-3.5 MECHANICAL HEART VALVES Performed By: #### L AT7356, YRV6517, UBH5136, JVV7825, GCN7897 ####[place] [address] PT Coag (PPP) [Time] 16.9 s High 10.1-13.7 [facility] Comment on above: Performed By: #### L UC1239, UKL9792, QLS5350, AUS9751, XRL1089 ####[place] [address] VASCULAR PROCEDUREon 024 VASCULAR PROCEDURE Normal [facility] VASCULAR PROCEDURE Normal [facility] FLUID CELL COUNTon 4 Basophils/100 WBC (Bld) 0 % Normal [facility] Comment on above: Order Comment: Ascit es Performed By: #### L UA8298, XUD4568, ONT9321, MRK2111, KLC5258, EVN1820 ####[place] [address] Eosinophils/100 WBC (Bld) 0 % Normal [facility] Comment on above: Order Comment: Ascit es Performed By: #### L ET5724, LOU4651, YPZ4836, WRK0266, EZJ6847, FTW5459 ####[place] [address] Lymphocytes/100 WBC (Bld) 11 % Normal [facility] Comment on above: Order Comment: Ascit es Performed By: #### L MZ4450, FVZ1869, FWR7631, DTJ4234, OOP4314, PCR5588 ####[place] [address] MACROPHAGES 79 % Normal [facility] Comment on above: Order Comment: Ascit es Performed By: #### L HH1621, AQB6473, CTP7200, FJA5514, SOP0058, UFO6782 ####[place] [address] MESOTHELIAL 3 % Normal [facility] Comment on above: Order Comment: Ascit es Performed By: #### L OP7809, ZXV8605, YVP3330, CLI8501, WGB8152, KBV7516 ####[facility] [place] [facility] [id number] [place] [address] Neutrophils/100 WBC (Bld) 7 % Normal [facility] Comment on above: Order Comment: Ascit es Performed By: #### L AH7539, OAG5216, EVW7086, ICK6115, SIU3207, AGN6905 ####[place] [address] PATHOLOGY REVIEW see below Normal [facility] Comment on above: Order Comment: Ascit es Result Comment: REVI EWED BY DR. ALEXANDRU KILLIAN: Agree with differential. 09/10/2024 Performed By: #### L GZ6218, WTV5018, LGZ0064, LDR9688, CEO1082, TWX8440 ####[place] [address] PLASMA CELLS 0 % Normal [facility] Comment on above: Order Comment: Ascit es Performed By: #### L TE9655, PHJ0194, KDM2255, SDH9478, CFT1327, XAB7219 ####[place] [address] OTHER 0 Normal [facility] Comment on above: Order Comment: Ascit es Performed By: #### L MX0421, FOR3073, TPA6663, RYI3752, NOE0418, ZWE9587 ####[place] [address] AMMONIAon 09-09-2024 Ammonia (P) [Moles/Vol] 98 umol/L High 11-50 [facility] Comment on above: Performed By: #### L BO0029 ####[place] [address] CBC w/ Differentialon 2023 Basophil Abs. 0.0 10*3/uL Normal 0.0-0.1 [facility] Comment on above: Order Comment: Nichole connelly to and read back by mercedes bautista to irene pedersen at 01:44 on 09/09/2024, LPH Performed By: #### L DC6379, PKQ0492, SXQ4093, HYE9244 ####[address] [address] Basophils/100 WBC (Bld) 0.7 % Normal 0.0-1.0 [facility] Comment on above: Order Comment: Varela d to and read back by plat called to irene pedersen, at 01:44 on 09/09/2024, LPH Performed By: #### L QM5890, RWG0888, YVZ2665, BRR5008 ####[place] [address] Differential type Auto Normal [facility] Comment on above: Order Comment: Varela d to and read back by plat called to irene pedersen, at 01:44 on 09/09/2024, LPH Performed By: #### L PB6033, DFZ5773, MPO8776, ITU7749 ####[place] [address] Eosinophils (Bld) [#/Vol] 0.2 10*3/uL Normal 0.0-0.5 [facility] Comment on above: Order Comment: Varela d to and read back by plat called to irene pedersen, at 01:44 on 09/09/2024, LPH Performed By: #### L NU7477, VII1333, IRZ6480, ULH0959 ####[address] [address] Eosinophils/100 WBC (Bld) 4.2 % Normal 0.3-5.0 [facility] Comment on above: Order Comment: Varela d to and read back by plat called to irene pedersen, at 01:44 on 09/09/2024, LPH Performed By: #### L [id number], [id number], [id number], [id number] ####[place] [address] Erythrocyte distribution width (RBC) [Ratio] 16.1 % Normal 10.7-18.7 [facility] Comment on above: Order Comment: Varela d to and read back by plat called to irene pedersen, at 01:44 on 09/09/2024, LPH Performed By: #### L [id number], [id number], [id number], [id number] ####[place] [address] Hematocrit (Bld) [Volume fraction] 31.4 % Low 33.0-51.0 [facility] Comment on above: Order Comment: Varela d to and read back by plat called to irene pedersen, at 01:44 on 09/09/2024, LPH Performed By: #### L [id number], [id number], KNP0126, [id number] ####[place] [address] Hemoglobin (Bld) [Mass/Vol] 10.5 g/dL Low 12.0-16.0 [facility] Comment on above: Order Comment: Varela d to and read back by plat called to irene pedersen, at 01:44 on 09/09/2024, LPH Performed By: #### L [id number], ZRY0513, [id number], UMT9959 ####[place] [address] Lymphocytes (Bld) [#/Vol] 1.0 10*3/uL Low 1.1-5.0 [facility] Comment on above: Order Comment: Varela d to and read back by plat called to irene pedersen, at 01:44 on 09/09/2024, LPH Performed By: #### L AT1646, YGQ5605, MXR4390, MOB7316 ####[place] [address] Lymphocytes/100 WBC (Bld) 22.4 % Low 24.0-44.0 [facility] Comment on above: Order Comment: Varela d to and read back by plat called to irene pedersen, at 01:44 on 09/09/2024, LPH Performed By: #### L [id number], [id number], [id number], QSA8914 ####[address] [address] MCH (RBC) [Entitic mass] 32.3 pg Normal 26.0-34.0 [facility] Comment on above: Order Comment: Varela d to and read back by plat called to irene pedersen, at 01:44 on 09/09/2024, LPH Performed By: #### L IJ5071, WCP5635, UBV9007, TNN3628 ####[place] [address] MCHC (RBC) [Mass/Vol] 33.4 g/dL Normal 32.0-36.0 [facility] Comment on above: Order Comment: Varela d to and read back by plat called to irene pedersen, at 01:44 on 09/09/2024, LPH Performed By: #### L WM7139, YGY4802, ZQW0789, KJV1921 ####[place] [address] MCV (RBC) [Entitic vol] 96.7 fL Normal 80.0-100.0 [facility] Comment on above: Order Comment: Varela d to and read back by plat called to irene pedersen, at 01:44 on 09/09/2024, LPH Performed By: #### L ZT4965, NEO7130, VAN7223, QDW3363 ####[place] [address] Monocytes (Bld) [#/Vol] 0.7 10*3/uL Normal 0.0-1.4 [facility] Comment on above: Order Comment: Varela d to and read back by plat called to irene pedersen, at 01:44 on 09/09/2024, LPH Performed By: #### L OI6138, JWJ7004, LVX5135, TZJ0591 ####[place] [address] Monocytes/100 WBC (Bld) 14.4 % High 2.1-13.3 [facility] Comment on above: Order Comment: Varela d to and read back by plat called to irene pedersen, at 01:44 on 09/09/2024, LPH Performed By: #### L VU7473, VLC1061, AGC3852, XXQ5026 ####[place] [address] Neutrophils, Abs. 2.7 10*3/uL Normal 1.5-8.5 [facility] Comment on above: Order Comment: Varela d to and read back by plat called to irene pedersen, at 01:44 on 09/09/2024, LPH Performed By: #### L WZ7654, DUM2795, VTE1963, WSM7929 ####[place] [address] Neutrophils/100 WBC (Bld) 58.3 % Normal 35.0-66.0 [facility] Comment on above: Order Comment: Varela d to and read back by plat called to irene pedersen, at 01:44 on 09/09/2024, LPH Performed By: #### L JG6592, KMA9495, FRA2401, THH3509 ####[place] [address] Platelet Cnt 40 10*3/uL Critically low 150-450 [facility] Comment on above: Order Comment: Varela d to and read back by plat called to irene pedersen, at 01:44 on 09/09/2024, LPH Performed By: #### L KO0249, HPP2513, OFY0572, ROE6748 ####[place] [address] Platelet mean volume (Bld) [Entitic vol] 9.9 fL Normal 6.5-10.0 [facility] Comment on above: Order Comment: Varela d to and read back by plat called to irene pedersen, at 01:44 on 09/09/2024, LPH Performed By: #### L NS5821, ZLH0340, FBD6917, VFY3439 ####[place] [address] RBC (Bld) [#/Vol] 3.24 10*6/uL Low 4.00-5.20 [facility] Comment on above: Order Comment: Varela d to and read back by plat called to irene pedersen, at 01:44 on 09/09/2024, LPH Performed By: #### L RF9324, TVW6259, PEQ8117, UPU5446 ####[place] [address] WBC (Bld) [#/Vol] 4.5 10*3/uL Normal 4.5-11.0 [facility] Comment on above: Order Comment: Nichole connelly to and read back by plat called to irene pedersen, at 01:44 on 09/09/2024, LPH Performed By: #### L MG5030, CDL1258, SDW0268, IDH6433 ####[place] [address] COMPREHENSIVE METABOLIC PANE Merritt 09-09-2024 Albumin [Mass/Vol] 2.4 g/dL Low 3.2-5.0 [facility] Comment on above: Performed By: #### L NV6362, GSH4355, FNF8124, VUU8937 ####[place] [address] Albumin/Globulin [Mass ratio] 0.9 {ratio} Normal [facility] Comment on above: Performed By: #### L XY8234, JAM6631, GSS3672, YAW9407 ####[place] [address] ALP [Catalytic activity/Vol] 117 U/L Normal 42-121 [facility] Comment on above: Performed By: #### L XY9035, XWX3128, TYP9520, FTZ1701 ####[place] [address] ALT [Catalytic activity/Vol] 75 U/L High 10-60 [facility] Comment on above: Performed By: #### L TY3935, SFC1371, VLC6249, PFV7076 ####[place] [address] Anion gap [Moles/Vol] 4 mmol/L Normal [facility] Comment on above: Performed By: #### L ME7283, SAI5066, QFY9347, MUF4957 ####[place] [address] AST [Catalytic activity/Vol] 134 U/L High 10-42 [facility] Comment on above: Performed By: #### L YC2207, APN2376, NAU0848, QHM2802 ####[place] [address] B/C 9 Low 10-20 [facility] Comment on above: Performed By: #### L TM4601, ZNS1759, FMN1379, BVG1516 ####[place] [address] Bilirubin.direct [Mass/Vol] 1.2 mg/dL High 0.2-1.0 [facility] Comment on above: Performed By: #### L NA5578, RYB3196, PDB7790, MMQ7645 ####[place] [address] Calcium [Mass/Vol] 8.4 mg/dL Low 8.5-10.5 [facility] Comment on above: Performed By: #### L LG8433, WRT6416, CWH4019, SZF6045 ####[place] [address] Chloride [Moles/Vol] 105 mmol/L Normal 101-111 [facility] Comment on above: Performed By: #### L VD0567, UGD9447, UYL0635, ANJ5188 ####[place] [address] CO2 [Moles/Vol] 24 mmol/L Normal 21-31 [facility] Comment on above: Performed By: #### L IO1961, XFR3026, JPF2185, URV0963 ####[place] [address] Creatinine [Mass/Vol] 0.9 mg/dL Normal 0.4-1.0 [facility] Comment on above: Performed By: #### L ZF1535, QIH3915, AAX6892, WQD9891 ####BABATUNDE [address] [place] [address] GFR/1.73 sq M.predicted MDRD (S/P/Bld) [Vol rate/Area] 66 mL/min/{1.73_m2} Normal [facility] Comment on above: Result Comment: *The estimated Glomerular Filtration Rate(EGFR) may not be accurate for children under the age of 18 yrs. To estimate the GFR for -Americans multiply the result provided by 1.21.Stage 1 90 mL/min or greaterStage 2 60-89 mL/minStage 3 30-59 mL/minStage 4 15-29 mL/minStage 5 14 mL/min or less Performed By: #### L YN2191, LSW6780, FQU2090, VDS6174 ####BABATUNDE [address] [address] Glucose [Mass/Vol] 83 mg/dL Normal 70-110 [facility] Comment on above: Performed By: #### L TK7319, UII4673, WLL5389, VUY2317 ####BABATUNDE [address] [address] Osmolality [Osmolality] 264 mosm/kg Low 266-309 [facility] Comment on above: Performed By: #### L VE0642, IUW6757, UCK3676, BBS2034 ####BABATUNDE [address] [address] Potassium [Moles/Vol] 4.1 mmol/L Normal 3.6-5.0 [facility] Comment on above: Performed By: #### L WN0431, GUD4106, QOD3030, CRB2493 ####BABATUNDE [address] [address] Protein [Mass/Vol] 5.2 g/dL Low 6.1-7.8 [facility] Comment on above: Performed By: #### L QY4354, MNO8521, EVK4390, ABG5145 ####BABATUNDE [address] [address] Sodium [Moles/Vol] 133 mmol/L Low 135-145 [facility] Comment on above: Performed By: #### L YU8323, RAQ4474, WSS9526, BQP3303 ####BAB[address] [address] Urea nitrogen [Mass/Vol] 8 mg/dL Normal 2-32 [facility] Comment on above: Performed By: #### L UZ4304, GCF0763, VVF4708, MSI0636 ####BABATUNDE [address] [address] GLUCOSE, GLUCOMETERon 2023 Glucose [Mass/Vol] 138 mg/dL High 70-110 [facility] Comment on above: Performed By: #### L EK4479 ####[address]AB[address] [address] Glucose [Mass/Vol] 93 mg/dL Normal 70-110 [facility] Comment on above: Performed By: #### L NG4340 ####[place] [address] MAGNESIUMon 09-09-2024 Magnesium [Mass/Vol] 1.8 mg/dL Normal 1.7-2.8 [facility] Comment on above: Performed By: #### L YD8501, RXW1159, YAY5356, CKW2253 ####[place] [address] Recollect, Speicmenon 2023 Comment see below Normal [facility] Comment on above: Result Comment: Spec imen requires recollection. A new STAT test has been placed, to expediterecollection of specimen by phlebotomy team. Performed By: #### L HN6696, KOA5175, HCQ0401, RIO8093 ####[place] [address] Notified Democrat irene pedersen Normal [facility] Comment on above: Performed By: #### L CZ6697, YIY5243, FKE4498, EMI2843 ####[place] [address] Test Name amm Normal [facility] Comment on above: Performed By: #### L CR3304, FPS4642, VOM5937, GUQ5330 ####[place] [address] AMMONIAon 09-08-2024 Ammonia (P) [Moles/Vol] 52 umol/L High 11-50 [facility] Comment on above: Performed By: #### L KM1753, NUB2296, KPD0662, FEP4129 ####[place] [address] CBC w/ Differentialon 2023 Basophil Abs. 0.0 10*3/uL Normal 0.0-0.1 [facility] Comment on above: Performed By: #### L KX1615, JZB2785, DZD2831, OXS4009 ####[place] [address] Basophils/100 WBC (Bld) 0.7 % Normal 0.0-1.0 [facility] Comment on above: Performed By: #### L YT2873, OFG5139, YQC5080, RMZ7721 ####[place] [address] Differential type Auto Normal [facility] Comment on above: Performed By: #### L RO3904, DUG2198, HTG2688, KZL7501 ####[place] [address] Eosinophils (Bld) [#/Vol] 0.2 10*3/uL Normal 0.0-0.5 [facility] Comment on above: Performed By: #### L FI7831, PPO5733, DRG4395, QQH0199 ####[place] [address] Eosinophils/100 WBC (Bld) 3.7 % Normal 0.3-5.0 [facility] Comment on above: Performed By: #### L HT1361, KHC0951, QIO4792, HQG1138 ####[place] [address] Erythrocyte distribution width (RBC) [Ratio] 15.8 % Normal 10.7-18.7 [facility] Comment on above: Performed By: #### L XZ0399, GSO7399, JWC5485, NXY5428 ####[facility] [address] [place] [address] Hematocrit (Bld) [Volume fraction] 34.5 % Normal 33.0-51.0 [facility] Comment on above: Performed By: #### L TY7504, NMY8965, XEN7157, XCR5903 ####[address]AB[address] [address] Hemoglobin (Bld) [Mass/Vol] 11.6 g/dL Low 12.0-16.0 [facility] Comment on above: Performed By: #### L ZQ6284, PCO6869, PNX8808, DMY5783 ####[address] [address] Lymphocytes (Bld) [#/Vol] 1.0 10*3/uL Low 1.1-5.0 [facility] Comment on above: Performed By: #### L HE6720, ZKT6151, ZLB4544, SDL5173 ####[address] [address] Lymphocytes/100 WBC (Bld) 17.6 % Low 24.0-44.0 [facility] Comment on above: Performed By: #### L ZR2715, JFJ9583, WNU5534, EQF6912 ####[address] [address] MCH (RBC) [Entitic mass] 32.2 pg Normal 26.0-34.0 [facility] Comment on above: Performed By: #### L JA1061, XVM0716, OZH9775, UAR6767 ####[address] [address] MCHC (RBC) [Mass/Vol] 33.7 g/dL Normal 32.0-36.0 [facility] Comment on above: Performed By: #### L WI8519, OTB4596, OYG1214, ULO0027 ####[address] [address] MCV (RBC) [Entitic vol] 95.7 fL Normal 80.0-100.0 [facility] Comment on above: Performed By: #### L PS6522, JZQ8739, MYA1707, QQY2618 ####[address] [address] Monocytes (Bld) [#/Vol] 0.9 10*3/uL Normal 0.0-1.4 [facility] Comment on above: Performed By: #### L JP6565, CTC4015, ZSI3272, ZZF2860 ####[address] [address] Monocytes/100 WBC (Bld) 15.0 % High 2.1-13.3 [facility] Comment on above: Performed By: #### L QG9545, HSR6448, CNA0637, JQP4942 ####[address] [address] Neutrophils, Abs. 3.6 10*3/uL Normal 1.5-8.5 [facility] Comment on above: Performed By: #### L UY3402, EYE8335, TEO0825, SLE6473 ####[address] [address] Neutrophils/100 WBC (Bld) 63.0 % Normal 35.0-66.0 [facility] Comment on above: Performed By: #### L CF0648, ADE6091, PWK5413, NRM3242 ####[address] [address] Platelet Cnt 57 10*3/uL Low 150-450 [facility] Comment on above: Performed By: #### L ZF4233, OUJ8380, YUL3599, ACL1582 ####[address] [address] Platelet mean volume (Bld) [Entitic vol] 10.4 fL High 6.5-10.0 [facility] Comment on above: Performed By: #### L UU7520, PTR4696, TIH2818, BRG9774 ####[address] [address] RBC (Bld) [#/Vol] 3.61 10*6/uL Low 4.00-5.20 [facility] Comment on above: Performed By: #### L SM1332, PFL7368, KFZ9568, CFU7105 ####[facility] [address] [place] [address] WBC (Bld) [#/Vol] 5.7 10*3/uL Normal 4.5-11.0 [facility] Comment on above: Performed By: #### L YH9296, LOE6300, XSH6773, MBB5168 ####[place] [address] COMPREHENSIVE METABOLIC PANE Merritt 09-08-2024 Albumin [Mass/Vol] 2.7 g/dL Low 3.2-5.0 [facility] Comment on above: Order Comment: Varela d to and read back by amy flores in imu (gluc), at 03:02 on 09/08/2024,KMP Performed By: #### L ID6772, PTX2532, OEC2682, MPM5036 ####[place] [address] Albumin/Globulin [Mass ratio] 0.8 {ratio} Normal [facility] Comment on above: Order Comment: Nichole connelly to and read back by amy flores in imu (gluc), at 03:02 on 09/08/2024,KMP Performed By: #### L AK2481, KJG5030, QUL1562, BGA9561 ####BABSC [address] [place] [address] ALP [Catalytic activity/Vol] 115 U/L Normal 42-121 [facility] Comment on above: Order Comment: Nichole connelly to and read back by amy flores in imu (gluc), at 03:02 on 09/08/2024,KMP Performed By: #### L HI4849, INJ8344, WKD5743, ERP8628 ####[facility] [address] [address] ALT [Catalytic activity/Vol] 88 U/L High 10-60 [facility] Comment on above: Order Comment: Varela d to and read back by amy flores in u (gluc), at 03:02 on 09/08/2024,KMP Performed By: #### L RX4485, KIQ8595, UBX0427, VRV2089 ####[place] [address] Anion gap [Moles/Vol] 5 mmol/L Normal [facility] Comment on above: Order Comment: Varela d to and read back by amy flores in u (gluc), at 03:02 on 09/08/2024,KMP Performed By: #### L RY4021, XVW7047, WVN9545, PKY3401 ####[place] [address] AST [Catalytic activity/Vol] 150 U/L High 10-42 [facility] Comment on above: Order Comment: Varela d to and read back by amy flores in u (gluc), at 03:02 on 09/08/2024,KMP Performed By: #### L CF4714, PNR8480, IEX4823, DEM1739 ####[place] [address] B/C 10 Normal 10-20 [facility] Comment on above: Order Comment: Varela d to and read back by amy flores in u (gluc), at 03:02 on 09/08/2024,KMP Performed By: #### L MV1779, XAU2350, KJT2352, HUL3411 ####[place] [address] Bilirubin.direct [Mass/Vol] 1.4 mg/dL High 0.2-1.0 [facility] Comment on above: Order Comment: Varela d to and read back by amy flores in u (gluc), at 03:02 on 09/08/2024,KMP Performed By: #### L OL9304, BPN8478, GMX5792, TNA7723 ####[facility] [address] [place], [place] [address] [address] Calcium [Mass/Vol] 8.5 mg/dL Normal 8.5-10.5 [facility] Comment on above: Order Comment: Varela d to and read back by amy flores in u (gluc), at 03:02 on 09/08/2024,KMP Performed By: #### L JB9771, RXI2830, RPA8949, IKR7081 ####[place] [address] Chloride [Moles/Vol] 100 mmol/L Low 101-111 [facility] Comment on above: Order Comment: Varela d to and read back by amy flores in u (gluc), at 03:02 on 09/08/2024,KMP Performed By: #### L IX9248, GPO0830, ZJV2178, VXD5162 ####[place] [address] CO2 [Moles/Vol] 27 mmol/L Normal 21-31 [facility] Comment on above: Order Comment: Varela d to and read back by amy flores in u (gluc), at 03:02 on 09/08/2024,KMP Performed By: #### L MK4809, VIV9209, LLY1808, EWU2480 ####[place] [address] Creatinine [Mass/Vol] 0.9 mg/dL Normal 0.4-1.0 [facility] Comment on above: Order Comment: Varela d to and read back by amy flores in u (gluc), at 03:02 on 09/08/2024,KMP Performed By: #### L ZY3458, CTI6698, CCD4597, MFZ2363 ####[place] [address] GFR/1.73 sq M.predicted MDRD (S/P/Bld) [Vol rate/Area] 66 mL/min/{1.73_m2} Normal [facility] Comment on above: Order Comment: Varela d to and read back by amy flores in u (gluc), at 03:02 on 09/08/2024,KMP Result Comment: *The estimated Glomerular Filtration Rate(EGFR) may not be accurate for children under the age of 18 yrs. To estimate the GFR for -Americans multiply the result provided by 1.21.Stage 1 90 mL/min or greaterStage 2 60-89 mL/minStage 3 30-59 mL/minStage 4 15-29 mL/minStage 5 14 mL/min or less Performed By: #### L VN2950, LJR1228, UFW2253, XPE8932 ####[address] [address] Glucose [Mass/Vol] 55 mg/dL Critically low 70-110 [facility] Comment on above: Order Comment: Nichole connelly to and read back by amy flores in u (gluc), at 03:02 on 09/08/2024,KMP Performed By: #### L IP2075, BTJ2789, OHV3622, IVY9495 ####[address] [address] Osmolality [Osmolality] 261 mosm/kg Low 266-309 [facility] Comment on above: Order Comment: Nichole connelly to and read back by amy flores in [facility] (gluc), at 03:02 on 09/08/2024,KMP Performed By: #### L VA4505, ELK8816, KJS7602, HKN4722 ####[address] [address] Potassium [Moles/Vol] 3.9 mmol/L Normal 3.6-5.0 [facility] Comment on above: Order Comment: Nichole connelly to and read back by amy flores in [facility] (gluc), at 03:02 on 09/08/2024,KMP Performed By: #### L SR6796, XIR3761, XXZ6542, JVT9444 ####[facility] [address] [place] [address] Protein [Mass/Vol] 6.0 g/dL Low 6.1-7.8 [facility] Comment on above: Order Comment: Nichole connelly to and read back by amy flores in imu (gluc), at 03:02 on 09/08/2024,KMP Performed By: #### L GL6295, WDX3824, QNG3246, GON7675 ####BABATUNDE [address] [address] Sodium [Moles/Vol] 132 mmol/L Low 135-145 [facility] Comment on above: Order Comment: Nichole connelly to and read back by amy flores in imu (gluc), at 03:02 on 09/08/2024,KMP Performed By: #### L MP7078, LIX2927, VFX5265, MAY2313 ####BABATUNDE [address] [address] Urea nitrogen [Mass/Vol] 9 mg/dL Normal 2-32 [facility] Comment on above: Order Comment: Nichole connelly to and read back by amy flores in imu (gluc), at 03:02 on 09/08/2024,KMP Performed By: #### L DW5619, FBR4714, SDK6651, LSB0640 ####BABATUNDE [address] [address] GLUCOSE, GLUCOMETERon 2023 Glucose [Mass/Vol] 144 mg/dL High 70-110 [facility] Comment on above: Performed By: #### L TU6193 ####BABATUNDE [address] [address] Glucose [Mass/Vol] 103 mg/dL Normal 70-110 [facility] Comment on above: Performed By: #### L HM3036 ####BABATUNDE [address] [address] Glucose [Mass/Vol] 141 mg/dL High 70-110 [facility] Comment on above: Performed By: #### L MN2250 ####BABATUNDE [address] [address] Glucose [Mass/Vol] 105 mg/dL Normal 70-110 [facility] Comment on above: Performed By: #### L WY8018 ####[place] [address] Glucose [Mass/Vol] 57 mg/dL Critically low 70-110 [facility] Comment on above: Performed By: #### L XP7219 ####[address] [address] Glucose [Mass/Vol] 198 mg/dL High 70-110 [facility] Comment on above: Performed By: #### L NM3100 ####[place] [address] MAGNESIUMon 09-08-2024 Magnesium [Mass/Vol] 1.7 mg/dL Normal 1.7-2.8 [facility] Comment on above: Performed By: #### L AM7574 ####[place] [address] Magnesium [Mass/Vol] 1.5 mg/dL Low 1.7-2.8 [facility] Comment on above: Order Comment: Nichole connelly to and read back by amy flores in imu (gluc), at 03:02 on 09/08/2024,KMP Performed By: #### L FV5397, RCZ3475, YXI6419, TCS8615 ####[place] [address] AMMONIAon 09-07-2024 Ammonia (P) [Moles/Vol] 75 umol/L High 11-50 [facility] Comment on above: Performed By: #### L QP0192, WGG6404, FOI2660, FKP3024 ####[place] [address] CBC w/ Differentialon 2023 Basophil Abs. 0.0 10*3/uL Normal 0.0-0.1 [facility] Comment on above: Order Comment: Nichole connelly to and read back by Carson CORONEL Called, at 02:12 on 09/07/2024, SMS Performed By: #### L DE1521, YEL2752, BRT4359, AUK6073 ####[place] [address] Basophils/100 WBC (Bld) 0.9 % Normal 0.0-1.0 [facility] Comment on above: Order Comment: Varela d to and read back by Carson CORONEL Called, at 02:12 on 09/07/2024, SMS Performed By: #### L GM5331, WNQ2828, MQX9386, WAD9532 ####[place] [address] Differential type Auto Normal [facility] Comment on above: Order Comment: Varela d to and read back by Carson CORONEL Called, at 02:12 on 09/07/2024, SMS Performed By: #### L YD3674, UIP9272, QKC2125, XPW1667 ####[place] [address] Eosinophils (Bld) [#/Vol] 0.2 10*3/uL Normal 0.0-0.5 [facility] Comment on above: Order Comment: Varela d to and read back by Carson CORONEL Called, at 02:12 on 09/07/2024, SMS Performed By: #### L FJ5868, DDX6807, OKE1778, UIP6773 ####[place] [address] Eosinophils/100 WBC (Bld) 3.8 % Normal 0.3-5.0 [facility] Comment on above: Order Comment: Varela d to and read back by Carson CORONEL Called, at 02:12 on 09/07/2024, SMS Performed By: #### L VK4706, ZNL3771, ZAA5649, VZL3958 ####[place] [address] Erythrocyte distribution width (RBC) [Ratio] 16.0 % Normal 10.7-18.7 [facility] Comment on above: Order Comment: Varela d to and read back by Carson CORONEL Called, at 02:12 on 09/07/2024, SMS Performed By: #### L TX9302, TDE0131, OHQ2035, MHO1246 ####[facility] [place] [address] Hematocrit (Bld) [Volume fraction] 32.1 % Low 33.0-51.0 [facility] Comment on above: Order Comment: Varela d to and read back by Carson CORONEL Called, at 02:12 on 09/07/2024, SMS Performed By: #### L BZ3904, ADK5861, DVT0533, LDI8690 ####[place] [address] Hemoglobin (Bld) [Mass/Vol] 11.0 g/dL Low 12.0-16.0 [facility] Comment on above: Order Comment: Varela d to and read back by Carson CORONEL Called, at 02:12 on 09/07/2024, SMS Performed By: #### L IP6175, LJN8018, BKQ4243, YFQ6509 ####[place] [address] Lymphocytes (Bld) [#/Vol] 1.2 10*3/uL Normal 1.1-5.0 [facility] Comment on above: Order Comment: Varela d to and read back by Carson CORONEL Called, at 02:12 on 09/07/2024, SMS Performed By: #### L LS2877, EBF3362, GYA4970, DXU2054 ####[address] [address] Lymphocytes/100 WBC (Bld) 23.8 % Low 24.0-44.0 [facility] Comment on above: Order Comment: Varela d to and read back by Carson CORONEL Called, at 02:12 on 09/07/2024, SMS Performed By: #### L FO7952, [id number], [id number], [id number] ####[id number] [place] [address] MCH (RBC) [Entitic mass] 32.9 pg Normal 26.0-34.0 [facility] Comment on above: Order Comment: Varela d to and read back by Carson CORONEL Called, at 02:12 on 09/07/2024, SMS Performed By: #### L [id number], [id number], [id number], [id number] ####[place] [address] MCHC (RBC) [Mass/Vol] 34.4 g/dL Normal 32.0-36.0 [facility] Comment on above: Order Comment: Varela d to and read back by Carson CORONEL Called, at 02:12 on 09/07/2024, SMS Performed By: #### L [id number], [id number], [id number], [id number] ####[place] [address] MCV (RBC) [Entitic vol] 95.8 fL Normal 80.0-100.0 [facility] Comment on above: Order Comment: Varela d to and read back by Carson CORONEL Called, at 02:12 on 09/07/2024, SMS Performed By: #### L [id number], [id number], [id number], IPS3659 ####[place] [address] Monocytes (Bld) [#/Vol] 0.6 10*3/uL Normal 0.0-1.4 [facility] Comment on above: Order Comment: Varela d to and read back by Carson CORONEL Called, at 02:12 on 09/07/2024, SMS Performed By: #### L [id number], [id number], [id number], [id number] ####[place] [address] Monocytes/100 WBC (Bld) 12.2 % Normal 2.1-13.3 [facility] Comment on above: Order Comment: Varela d to and read back by Carson CORONEL Called, at 02:12 on 09/07/2024, SMS Performed By: #### L [id number], [id number], [id number], [id number] ####[place] [address] Neutrophils, Abs. 2.9 10*3/uL Normal 1.5-8.5 [facility] Comment on above: Order Comment: Varela d to and read back by Carson CORONEL Called, at 02:12 on 09/07/2024, SMS Performed By: #### L JQ9149, ANK9637, JDZ1650, QJG1813 ####[address] [address] Neutrophils/100 WBC (Bld) 59.3 % Normal 35.0-66.0 [facility] Comment on above: Order Comment: Varela d to and read back by Carson CORONEL Called, at 02:12 on 09/07/2024, SMS Performed By: #### L YE9011, SOD4323, KDS6953, GXV0060 ####[place] [address] Platelet Cnt 49 10*3/uL Critically low 150-450 [facility] Comment on above: Order Comment: Varela d to and read back by Carson CORONEL Called, at 02:12 on 09/07/2024, SMS Performed By: #### L MF1528, FIL2856, HHN1578, DDK8388 ####[place] [address] Platelet mean volume (Bld) [Entitic vol] 10.4 fL High 6.5-10.0 [facility] Comment on above: Order Comment: Varela d to and read back by Carson CORONEL Called, at 02:12 on 09/07/2024, SMS Performed By: #### L AP6924, AMO2704, MXX9311, XZM3766 ####[address] [address] RBC (Bld) [#/Vol] 3.35 10*6/uL Low 4.00-5.20 [facility] Comment on above: Order Comment: Varela d to and read back by Carson CORONEL Called, at 02:12 on 09/07/2024, SMS Performed By: #### L JK4580, XRG0274, MOH2244, HHE2433 ####[place] [address] WBC (Bld) [#/Vol] 4.9 10*3/uL Normal 4.5-11.0 [facility] Comment on above: Order Comment: Nichole connelly to and read back by Carson CORONEL Called, at 02:12 on 09/07/2024, SMS Performed By: #### L GN1744, GQI1248, LSW6396, FUS3295 ####[place] [address] COMPREHENSIVE METABOLIC PANE Merritt 09-07-2024 Albumin [Mass/Vol] 2.4 g/dL Low 3.2-5.0 [facility] Comment on above: Performed By: #### L BC6086, VQG3242, NAU8014, VBR0961 ####[place] [address] Albumin/Globulin [Mass ratio] 0.8 {ratio} Normal [facility] Comment on above: Performed By: #### L LT2691, AOZ3189, AVN1174, YAJ3678 ####[place] [address] ALP [Catalytic activity/Vol] 111 U/L Normal 42-121 [facility] Comment on above: Performed By: #### L RC7817, XYM9381, GDD4040, HLN0243 ####[place] [address] ALT [Catalytic activity/Vol] 82 U/L High 10-60 [facility] Comment on above: Performed By: #### L PH3397, BVP1890, ADS0419, IZE7717 ####[place] [address] Anion gap [Moles/Vol] 4 mmol/L Normal [facility] Comment on above: Performed By: #### L HT7705, NBJ9234, UUI4727, SWN1098 ####[place] [address] AST [Catalytic activity/Vol] 133 U/L High 10-42 [facility] Comment on above: Performed By: #### L SI8481, YQJ2254, DUM6908, JBS8112 ####[place] [address] B/C 13 Normal 10-20 [facility] Comment on above: Performed By: #### L AX7262, IIE7610, JVJ4295, XXC1690 ####[place] [address] Bilirubin.direct [Mass/Vol] 1.2 mg/dL High 0.2-1.0 [facility] Comment on above: Performed By: #### L YM4601, KEY8089, DYF4079, STW9268 ####[place] [address] Calcium [Mass/Vol] 8.4 mg/dL Low 8.5-10.5 [facility] Comment on above: Performed By: #### L WA8933, USW8356, BCC6189, INK6066 ####[place] [address] Chloride [Moles/Vol] 104 mmol/L Normal 101-111 [facility] Comment on above: Performed By: #### L PQ2034, RQG2459, IQX0340, PYT9563 ####[address] [address] CO2 [Moles/Vol] 26 mmol/L Normal 21-31 [facility] Comment on above: Performed By: #### L LJ7811, DWW3708, VEB0439, USO6282 ####[place] [address] Creatinine [Mass/Vol] 0.8 mg/dL Normal 0.4-1.0 [facility] Comment on above: Performed By: #### L NP5259, ILF9778, SPQ9093, ORY8464 ####[place] [address] GFR/1.73 sq M.predicted MDRD (S/P/Bld) [Vol rate/Area] 76 mL/min/{1.73_m2} Normal [facility] Comment on above: Result Comment: *The estimated Glomerular Filtration Rate(EGFR) may not be accurate for children under the age of 18 yrs. To estimate the GFR for -Americans multiply the result provided by 1.21.Stage 1 90 mL/min or greaterStage 2 60-89 mL/minStage 3 30-59 mL/minStage 4 15-29 mL/minStage 5 14 mL/min or less Performed By: #### L KZ8034, HUJ6374, DRU1886, QIC7778 ####BABATUNDE [address] [address] Glucose [Mass/Vol] 91 mg/dL Normal 70-110 [facility] Comment on above: Performed By: #### L HA4854, OUX6315, TPN6544, XKP8094 ####BABATUNDE [address] [address] Osmolality [Osmolality] 267 mosm/kg Normal 266-309 [facility] Comment on above: Performed By: #### L YX1160, XON7079, USE4581, CNS5976 ####BABATUNDE [address] [address] Potassium [Moles/Vol] 4.1 mmol/L Normal 3.6-5.0 [facility] Comment on above: Performed By: #### L OP4736, NFU3043, NRV7577, MMT9733 ####BABATUNDE [address] [address] Protein [Mass/Vol] 5.5 g/dL Low 6.1-7.8 [facility] Comment on above: Performed By: #### L ZR5491, EKU8173, UAA7092, MVG9959 ####BABATUNDE [address] [address] Sodium [Moles/Vol] 134 mmol/L Low 135-145 [facility] Comment on above: Performed By: #### L BO1904, GYN0557, FDN5686, RKX9002 ####[place] [address] Urea nitrogen [Mass/Vol] 10 mg/dL Normal 2-32 [facility] Comment on above: Performed By: #### L UL0189, KAN0977, MFA6560, OQU2819 ####[facility] [address] [place] [address] MAGNESIUMon 09-07-2024 Magnesium [Mass/Vol] 1.6 mg/dL Low 1.7-2.8 [facility] Comment on above: Performed By: #### L RE2714, FQR5062, UPM8621, RRH2423 ####[facility] [address] [place] [address] SURGICAL CASESon 09-07-2024 SURGICAL CASES Normal [facility] Comment on above: Performed By: #### L FB1439 ####[place] [address] Upper GI endoscopyon 024 Upper GI endoscopy Normal [facility] AMMONIAon 09-06-2024 Ammonia (P) [Moles/Vol] 62 umol/L High 11-50 [facility] Comment on above: Performed By: #### L VX6602, XFH6845, CWI0106, BSS0198 ####[place] [address] Albumin, Body Fluidon 2023 Albumin, Body Fluid 420 mg/dL Normal [facility] Comment on above: Order Comment: Ascit es Result Comment: INTE RPRETIVE INFORMATION: Albumin, Body FluidA reference interval has not been established for body fluidspecimens.This test was developed and its performance characteristicsdetermined by [email or web address]. It has not been cleared orapproved by the U.S. Food and Drug Administration. This test wasperformed in a CLIA-certified laboratory and is intended forclinical purposes.Performed By: [email or web address] [place] [id number] Director: Elvin Diaz MD, PhDCLIA Number: [id number] Performed By: #### L TO2238, XLF9440, RKZ9405, PDJ5633, RTN0198, ANJ4977 ####[place] [address] Source: ascites Normal [facility] Comment on above: Order Comment: Ascit es Result Comment: Coni ected result;Previously reported as ascites, by V/SONIDO at 15:51 on 09/04/24 Performed By: #### L MO3267, ZCM1834, XME4844, ZUB9728, MAV3478, MVV4648 ####[place] [address] CBC w/ Differentialon 2023 Basophil Abs. 0.0 10*3/uL Normal 0.0-0.1 [facility] Comment on above: Performed By: #### L SW0157, OOI0259, ILN9120, CCE8724 ####[place] [address] Basophils/100 WBC (Bld) 0.7 % Normal 0.0-1.0 [facility] Comment on above: Performed By: #### L YG2229, MMX5433, LLJ7275, TCJ2224 ####[place] [address] Differential type Auto Normal [facility] Comment on above: Performed By: #### L XO9166, NUG1598, EQW5873, HVO0488 ####[place] [address] Eosinophils (Bld) [#/Vol] 0.2 10*3/uL Normal 0.0-0.5 [facility] Comment on above: Performed By: #### L DR7445, QHQ2008, RAI6402, CMF5412 ####[place] [address] Eosinophils/100 WBC (Bld) 4.5 % Normal 0.3-5.0 [facility] Comment on above: Performed By: #### L QK9797, BEL6121, GUQ2837, ITJ3843 ####[place] [address] Erythrocyte distribution width (RBC) [Ratio] 16.0 % Normal 10.7-18.7 [facility] Comment on above: Performed By: #### L UW1637, SFM3144, WLM0579, YTF9735 ####[place] [address] Hematocrit (Bld) [Volume fraction] 32.5 % Low 33.0-51.0 [facility] Comment on above: Performed By: #### L DD0359, FPK8560, LMW5224, ZJK4986 ####[place] [address] Hemoglobin (Bld) [Mass/Vol] 11.2 g/dL Low 12.0-16.0 [facility] Comment on above: Performed By: #### L ZX9823, AHT8115, WMQ0368, TGU1327 ####[place] [address] Lymphocytes (Bld) [#/Vol] 1.1 10*3/uL Normal 1.1-5.0 [facility] Comment on above: Performed By: #### L IA0957, KTZ6151, KMI2625, RDL7633 ####[place] [address] Lymphocytes/100 WBC (Bld) 19.8 % Low 24.0-44.0 [facility] Comment on above: Performed By: #### L FA6485, WDS4062, KUS6934, NUU0778 ####[place] [address] MCH (RBC) [Entitic mass] 32.8 pg Normal 26.0-34.0 [facility] Comment on above: Performed By: #### L RK0255, KKQ5919, AEC7835, PCT8916 ####[place] [address] MCHC (RBC) [Mass/Vol] 34.4 g/dL Normal 32.0-36.0 [facility] Comment on above: Performed By: #### L DO4841, SSU2353, TDX3150, UMR7132 ####[place] [address] MCV (RBC) [Entitic vol] 95.4 fL Normal 80.0-100.0 [facility] Comment on above: Performed By: #### L JY0694, HNU4361, IJL7563, KUP4909 ####[place] [address] Monocytes (Bld) [#/Vol] 0.7 10*3/uL Normal 0.0-1.4 [facility] Comment on above: Performed By: #### L ZX5548, XXJ0006, USS3630, PSN0064 ####[place] [address] Monocytes/100 WBC (Bld) 12.2 % Normal 2.1-13.3 [facility] Comment on above: Performed By: #### L XX2549, ZFL2119, RMY2313, XGK0986 ####[place] [address] Neutrophils, Abs. 3.4 10*3/uL Normal 1.5-8.5 [facility] Comment on above: Performed By: #### L XM9167, DKJ0839, ABL0608, TGE8625 ####[place] [address] Neutrophils/100 WBC (Bld) 62.8 % Normal 35.0-66.0 [facility] Comment on above: Performed By: #### L QE8589, IDN3079, SSQ1670, ZUQ9655 ####[place] [address] Platelet Cnt 51 10*3/uL Low 150-450 [facility] Comment on above: Performed By: #### L PJ7060, TDP4433, KKM2354, IJW3910 ####[place] [address] Platelet mean volume (Bld) [Entitic vol] 10.7 fL High 6.5-10.0 [facility] Comment on above: Performed By: #### L XU9734, MON5481, SKU0164, OUO5545 ####BABATUNDE [address] [place] [address] RBC (Bld) [#/Vol] 3.41 10*6/uL Low 4.00-5.20 [facility] Comment on above: Performed By: #### L YZ0257, ALE8791, OAI2586, IGR9599 ####[place] [address] WBC (Bld) [#/Vol] 5.4 10*3/uL Normal 4.5-11.0 [facility] Comment on above: Performed By: #### L IA9105, WUG2765, ZRG1579, WDZ9573 ####[place] [address] COMPREHENSIVE METABOLIC PANE Merritt 09-06-2024 Albumin [Mass/Vol] 2.6 g/dL Low 3.2-5.0 [facility] Comment on above: Performed By: #### L YQ1107, GUH0524, TRQ5400, TCN2519 ####[place] [address] Albumin/Globulin [Mass ratio] 0.9 {ratio} Normal [facility] Comment on above: Performed By: #### L MP3127, EIV1898, RAX2575, ZNJ9811 ####[place] [address] ALP [Catalytic activity/Vol] 118 U/L Normal 42-121 [facility] Comment on above: Performed By: #### L BN7732, TGE4058, DHM1340, DGI5279 ####[place] [address] ALT [Catalytic activity/Vol] 84 U/L High 10-60 [facility] Comment on above: Performed By: #### L RK9320, XFD9009, PIR8264, ETE1199 ####[place] [address] Anion gap [Moles/Vol] 3 mmol/L Normal [facility] Comment on above: Performed By: #### L TV1064, JCG2533, FKO2633, VMZ7073 ####[place] [address] AST [Catalytic activity/Vol] 132 U/L High 10-42 [facility] Comment on above: Performed By: #### L ZS9899, OTX4154, BGR0108, EUA7443 ####[place] [address] B/C 8 Low 10-20 [facility] Comment on above: Performed By: #### L EN7462, MBC2367, XCM6837, BFZ0425 ####[place] [address] Bilirubin.direct [Mass/Vol] 1.5 mg/dL High 0.2-1.0 [facility] Comment on above: Performed By: #### L DN9341, BWG0240, RSF1874, HWU8622 ####[place] [address] Calcium [Mass/Vol] 8.7 mg/dL Normal 8.5-10.5 [facility] Comment on above: Performed By: #### L WR5132, JFB5079, WBO4174, DLJ9061 ####[place] [address] Chloride [Moles/Vol] 105 mmol/L Normal 101-111 [facility] Comment on above: Performed By: #### L XC6991, IPP0126, YCA0605, UAY9235 ####[place] [address] CO2 [Moles/Vol] 27 mmol/L Normal 21-31 [facility] Comment on above: Performed By: #### L OD3323, MDS0089, ZNA8456, PTT8064 ####[place] [address] Creatinine [Mass/Vol] 0.9 mg/dL Normal 0.4-1.0 [facility] Comment on above: Performed By: #### L PL5484, OSH2991, BFQ5040, VTD8722 ####[facility] [address] [place] [address] GFR/1.73 sq M.predicted MDRD (S/P/Bld) [Vol rate/Area] 66 mL/min/{1.73_m2} Normal [facility] Comment on above: Result Comment: *The estimated Glomerular Filtration Rate(EGFR) may not be accurate for children under the age of 18 yrs. To estimate the GFR for -Americans multiply the result provided by 1.21.Stage 1 90 mL/min or greaterStage 2 60-89 mL/minStage 3 30-59 mL/minStage 4 15-29 mL/minStage 5 14 mL/min or less Performed By: #### L PX8023, IGR6447, XZI0348, WJK6753 ####BABATUN[address] [address] Glucose [Mass/Vol] 95 mg/dL Normal 70-110 [facility] Comment on above: Performed By: #### L TZ6526, NXT8618, KJG6145, TWY6179 ####BABATUNDE [address] [address] Osmolality [Osmolality] 268 mosm/kg Normal 266-309 [facility] Comment on above: Performed By: #### L CL1913, HKF9414, SES5432, GIW1501 ####BABATUNDE [address] [address] Potassium [Moles/Vol] 4.2 mmol/L Normal 3.6-5.0 [facility] Comment on above: Performed By: #### L XO0048, GIA7400, PMN9359, VVC2579 ####[address] [address] Protein [Mass/Vol] 5.6 g/dL Low 6.1-7.8 [facility] Comment on above: Performed By: #### L LQ6951, YMW3302, IVY6284, NFF6121 ####BABATUNDE [address] [address] Sodium [Moles/Vol] 135 mmol/L Normal 135-145 [facility] Comment on above: Performed By: #### L CF6342, ZVJ5397, YME9091, OSN7487 ####[facility] [address] [place] [address] Urea nitrogen [Mass/Vol] 7 mg/dL Normal 2-32 [facility] Comment on above: Performed By: #### L ZO0572, ZJM9516, XAM4731, LAG7222 ####[place] [address] MAGNESIUMon 09-06-2024 Magnesium [Mass/Vol] 1.5 mg/dL Low 1.7-2.8 [facility] Comment on above: Performed By: #### L HY3390, TUZ9170, XES1069, HWX0390 ####[place] [address] AFP TUMOR MARKER, Son 2023 AFP TUMOR MARKER, S 30.08 ng/mL Abnormal < 6.00 [facility] Comment on above: Order Comment: [id number] [...] of malignant disease. Performed By: #### L KU1291 ####[place] [address] AMMONIAon 09-05-2024 Ammonia (P) [Moles/Vol] 62 umol/L High 11-50 [facility] Comment on above: Performed By: #### L NR1587, HXX9071, NKO8400, NEA2614 ####[place] [id number] [place] [address] CBC w/ Differentialon 2023 Basophil Abs. 0.0 10*3/uL Normal 0.0-0.1 [facility] Comment on above: Order Comment: Nichole connelly to and read back by AICHA DUMONT/ AMY B, at 03:19 on 09/05/2024, TB3 Performed By: #### L VY3138, BEI8892, BWR3859, EWV5212 ####[place] [id number] [place] [address] Basophils/100 WBC (Bld) 0.8 % Normal 0.0-1.0 [facility] Comment on above: Order Comment: Varela d to and read back by U PLT/ AMY B, at 03:19 on 09/05/2024, TB3 Performed By: #### L TA3535, XLW2562, TWY5805, HMB5210 ####[place] [address] Differential type Auto Normal [facility] Comment on above: Order Comment: Varela d to and read back by U PLT/ AMY B, at 03:19 on 09/05/2024, TB3 Performed By: #### L TN6641, AEG9199, OBL2735, QAC0209 ####[place] [address] Eosinophils (Bld) [#/Vol] 0.2 10*3/uL Normal 0.0-0.5 [facility] Comment on above: Order Comment: Varela d to and read back by U PLT/ AMY B, at 03:19 on 09/05/2024, TB3 Performed By: #### L WR7362, MFG5923, QFW3477, FIQ4450 ####[address] [address] Eosinophils/100 WBC (Bld) 3.0 % Normal 0.3-5.0 [facility] Comment on above: Order Comment: Varela d to and read back by U PLT/ AMY B, at 03:19 on 09/05/2024, TB3 Performed By: #### L WE4322, YMK4688, PYW5280, SEI1507 ####[facility] [place] [address] Erythrocyte distribution width (RBC) [Ratio] 15.9 % Normal 10.7-18.7 [facility] Comment on above: Order Comment: Varela d to and read back by U PLT/ AMY B, at 03:19 on 09/05/2024, TB3 Performed By: #### L SF8380, TII8061, DPV0426, FJW8055 ####[place] [address] Hematocrit (Bld) [Volume fraction] 30.7 % Low 33.0-51.0 [facility] Comment on above: Order Comment: Varela d to and read back by U PLT/ AMY B, at 03:19 on 09/05/2024, TB3 Performed By: #### L MH1368, XRG4945, MFW7150, UAR1752 ####[place] [address] Hemoglobin (Bld) [Mass/Vol] 10.5 g/dL Low 12.0-16.0 [facility] Comment on above: Order Comment: Varela d to and read back by U PLT/ AMY B, at 03:19 on 09/05/2024, TB3 Performed By: #### L UF4618, ALL6195, ZDG0585, AHX4122 ####[place] [address] Lymphocytes (Bld) [#/Vol] 1.0 10*3/uL Low 1.1-5.0 [facility] Comment on above: Order Comment: Varela d to and read back by U PLT/ AMY B, at 03:19 on 09/05/2024, TB3 Performed By: #### L UH0828, GNE3149, PTZ0136, SMR2861 ####[address] [address] Lymphocytes/100 WBC (Bld) 19.6 % Low 24.0-44.0 [facility] Comment on above: Order Comment: Varela d to and read back by IMU PLT/ AMY B, at 03:19 on 09/05/2024, TB3 Performed By: #### L QJ5583, RWQ8588, IGI4351, UTC7877 ####[place] [address] MCH (RBC) [Entitic mass] 32.4 pg Normal 26.0-34.0 [facility] Comment on above: Order Comment: Varela d to and read back by IMU PLT/ AMY B, at 03:19 on 09/05/2024, TB3 Performed By: #### L GZ4426, NPG3438, SIW2594, YBT0116 ####[place] [address] MCHC (RBC) [Mass/Vol] 34.1 g/dL Normal 32.0-36.0 [facility] Comment on above: Order Comment: Varela d to and read back by IMU PLT/ AMY B, at 03:19 on 09/05/2024, TB3 Performed By: #### L FY3019, KQH0587, XNP4177, OTC1580 ####[place] [address] MCV (RBC) [Entitic vol] 94.9 fL Normal 80.0-100.0 [facility] Comment on above: Order Comment: Varela d to and read back by IMU PLT/ AMY B, at 03:19 on 09/05/2024, TB3 Performed By: #### L RY2435, BEM3050, WLZ4204, EMO8019 ####[place] [address] Monocytes (Bld) [#/Vol] 0.6 10*3/uL Normal 0.0-1.4 [facility] Comment on above: Order Comment: Varela d to and read back by IMU PLT/ AMY B, at 03:19 on 09/05/2024, TB3 Performed By: #### L YC8150, EYB8594, EQV4875, QCN4415 ####[place] [address] Monocytes/100 WBC (Bld) 11.9 % Normal 2.1-13.3 [facility] Comment on above: Order Comment: Varela d to and read back by IMU PLT/ AMY B, at 03:19 on 09/05/2024, TB3 Performed By: #### L KW9147, KHO0002, FBB2310, ZQN5169 ####[address] [address] Neutrophils, Abs. 3.3 10*3/uL Normal 1.5-8.5 [facility] Comment on above: Order Comment: Varela d to and read back by U PLT/ AMY B, at 03:19 on 09/05/2024, TB3 Performed By: #### L NG8851, ENQ9641, CNN9321, OQN6386 ####[place] [address] Neutrophils/100 WBC (Bld) 64.7 % Normal 35.0-66.0 [facility] Comment on above: Order Comment: Varela d to and read back by U PLT/ AMY B, at 03:19 on 09/05/2024, TB3 Performed By: #### L HA1976, DDL0657, IAC6112, QDW3519 ####[place] [address] Platelet Cnt 43 10*3/uL Critically low 150-450 [facility] Comment on above: Order Comment: Varela d to and read back by U PLT/ AMY B, at 03:19 on 09/05/2024, TB3 Performed By: #### L JM7494, RPX6678, LNL3543, LLI4860 ####[place] [address] Platelet mean volume (Bld) [Entitic vol] 9.9 fL Normal 6.5-10.0 [facility] Comment on above: Order Comment: Varela d to and read back by U PLT/ AMY B, at 03:19 on 09/05/2024, TB3 Performed By: #### L GW5637, WFS5512, XNN3533, DYF4631 ####[place] [address] RBC (Bld) [#/Vol] 3.23 10*6/uL Low 4.00-5.20 [facility] Comment on above: Order Comment: Varela d to and read back by U PLT/ AMY B, at 03:19 on 09/05/2024, TB3 Performed By: #### L EL9387, MIP8599, JYZ6470, MNE3841 ####[place] [address] WBC (Bld) [#/Vol] 5.1 10*3/uL Normal 4.5-11.0 [facility] Comment on above: Order Comment: Varela d to and read back by IMU PLT/ AMY B, at 03:19 on 09/05/2024, TB3 Performed By: #### L GE0766, NXV6527, AKS0239, VYB9265 ####[place] [address] COMPREHENSIVE METABOLIC PANE Merritt 09-05-2024 Albumin [Mass/Vol] 2.5 g/dL Low 3.2-5.0 [facility] Comment on above: Performed By: #### L GG3783, TEM6860, ZQE7744, PVY8259 ####[place] [address] Albumin/Globulin [Mass ratio] 0.9 {ratio} Normal [facility] Comment on above: Performed By: #### L TT5524, JOR8406, KFY9477, UDZ2584 ####[place] [address] ALP [Catalytic activity/Vol] 106 U/L Normal 42-121 [facility] Comment on above: Performed By: #### L NG6936, FZS4050, KAV3331, OWF6052 ####[place] [address] ALT [Catalytic activity/Vol] 82 U/L High 10-60 [facility] Comment on above: Performed By: #### L RE4156, LHS3004, IFB2327, DKI9446 ####[place] [id number] Anion gap [Moles/Vol] 4 mmol/L Normal [facility] Comment on above: Performed By: #### L TY6151, BSM3629, DUN5983, GFM8065 ####[place] [address] AST [Catalytic activity/Vol] 128 U/L High 10-42 [facility] Comment on above: Performed By: #### L MC0346, PFB0806, SZU1878, MIY8730 ####[place] [address] B/C 8 Low 10-20 [facility] Comment on above: Performed By: #### L AJ6687, ZRT3088, SBU3604, SRG5791 ####[place] [address] Bilirubin.direct [Mass/Vol] 1.4 mg/dL High 0.2-1.0 [facility] Comment on above: Performed By: #### L KW0316, ZSZ3118, SAT4474, CPK8520 ####[place] [address] Calcium [Mass/Vol] 8.5 mg/dL Normal 8.5-10.5 [facility] Comment on above: Performed By: #### L HC1308, HCA3114, EKM5349, PHC2324 ####[place] [address] Chloride [Moles/Vol] 104 mmol/L Normal 101-111 [facility] Comment on above: Performed By: #### L WB1508, MAF2987, ZUD0625, DEV4964 ####[place] [address] CO2 [Moles/Vol] 26 mmol/L Normal 21-31 [facility] Comment on above: Performed By: #### L IQ8584, IKU9664, FWS0125, CBO1864 ####[place] [address] Creatinine [Mass/Vol] 0.9 mg/dL Normal 0.4-1.0 [facility] Comment on above: Performed By: #### L SQ1955, PQM0631, NWV2383, YNO7507 ####[place] [address] GFR/1.73 sq M.predicted MDRD (S/P/Bld) [Vol rate/Area] 66 mL/min/{1.73_m2} Normal [facility] Comment on above: Result Comment: *The estimated Glomerular Filtration Rate(EGFR) may not be accurate for children under the age of 18 yrs. To estimate the GFR for -Americans multiply the result provided by 1.21.Stage 1 90 mL/min or greaterStage 2 60-89 mL/minStage 3 30-59 mL/minStage 4 15-29 mL/minStage 5 14 mL/min or less Performed By: #### L AW3215, VKC1445, ZRH4933, EJR7329 ####[place] [address] Glucose [Mass/Vol] 132 mg/dL High 70-110 [facility] Comment on above: Performed By: #### [place]apha TN2160, XKA2000, KPP1253, BPJ8607 ####[place] [address] Osmolality [Osmolality] 268 mosm/kg Normal 266-309 [facility] Comment on above: Performed By: #### L PZ2696, MMY1655, GXD9031, UMT1801 ####[place] [address] Potassium [Moles/Vol] 4.3 mmol/L Normal 3.6-5.0 [facility] Comment on above: Performed By: #### L XC5226, HUY7667, TZF3010, IZM2613 ####BABATUNDE [address] [address] Protein [Mass/Vol] 5.3 g/dL Low 6.1-7.8 [facility] Comment on above: Performed By: #### L ZM0758, DAC2787, EQM6444, IIP7293 ####[place] [address] Sodium [Moles/Vol] 134 mmol/L Low 135-145 [facility] Comment on above: Performed By: #### L GI1221, HRE7704, VJY8016, MAV2942 ####[place] [address] Urea nitrogen [Mass/Vol] 7 mg/dL Normal 2-32 [facility] Comment on above: Performed By: #### L WP5175, LBV9575, OIG7336, FOU5786 ####[place] [address] MAGNESIUMon 09-05-2024 Magnesium [Mass/Vol] 1.7 mg/dL Normal 1.7-2.8 [facility] Comment on above: Performed By: #### L FE2000 ####[place] [address] Magnesium [Mass/Vol] 1.5 mg/dL Low 1.7-2.8 [facility] Comment on above: Performed By: #### L FJ2200, UOX0074, FCO0013, EDI8512 ####[place] [address] UA w/ Culture reflexon 09-05 UR BACTERIA Many Abnormal NONE SEEN [facility] Comment on above: Performed By: #### L GL6173 ####[place] [address] UR MUCOUS None Seen Normal NONE SEEN [facility] Comment on above: Performed By: #### L RL2931 ####[place] [address] UR RBC 1 - 3 Normal 1-3 [facility] Comment on above: Performed By: #### L IK4207 ####[place] [address] UR SQUAMOUS EPI 1 - 3 Normal 3-5 [facility] Comment on above: Performed By: #### L RN7120 ####[place] [address] UR WBC 1 - 3 Normal 1-3 [facility] Comment on above: Performed By: #### L PN0891 ####[place] [address] UR BILIRUBIN Negative Normal NEGATIVE [facility] Comment on above: Performed By: #### L ZD0980 ####[place] [address] UR BLOOD 2 + mg/dL Abnormal NEGATIVE [facility] Comment on above: Performed By: #### L OM2609 ####[place] [address] UR CLARITY Clear Normal CLEAR [facility] Comment on above: Performed By: #### L VW7382 ####[place] [address] UR COLOR Light-Yellow Normal YELLOW [facility] Comment on above: Performed By: #### L UL0719 ####[place] [address] UR GLUCOSE Negative Normal NEGATIVE [facility] Comment on above: Performed By: #### L WI3389 ####[place] [address] UR KETONE Negative Normal NEGATIVE [facility] Comment on above: Performed By: #### L KV3697 ####[facility] [place] [address] UR LEUKOCYTE Negative Normal NEGATIVE [facility] Comment on above: Performed By: #### L OQ9340 ####[facility] [place] [address] UR NITRITE Negative Normal NEGATIVE [facility] Comment on above: Performed By: #### L IG8866 ####[place] [address] UR PH 5.5 Normal 5.0-9.0 [facility] Comment on above: Performed By: #### L BS1119 ####[place] [address] UR PROTEIN Negative Normal NEGATIVE [facility] Comment on above: Performed By: #### L GW1121 ####[place] [address] UR SP GRAVITY 1.005 Normal 1.005-1.030 [facility] Comment on above: Performed By: #### L ND7944 ####[place] [address] UR UROBILINOGEN < 2.0 Normal <2.0 [facility] Comment on above: Performed By: #### L NL4283 ####[place] [address] AMMONIAon 09-04-2024 Ammonia (P) [Moles/Vol] 134 umol/L Critically high 11-50 [facility] Comment on above: Order Comment: Varela d to and read back by willard vuong :plt, at 01:33 on 09/04/2024, KBMCalled to and read back by IMU AMM/ WILLARD Vuong, at 01:49 on 09/04/2024, TB3 Performed By: #### L FC6724, JBK4767, ALH6256, MXJ4152 ####[place] [address] CBC w/ Differentialon 2023 Basophil Abs. 0.0 10*3/uL Normal 0.0-0.1 [facility] Comment on above: Performed By: #### L QE6331, PWK8556, NDR6916, OTS2240 ####[place] [address] Basophils/100 WBC (Bld) 0.8 % Normal 0.0-1.0 [facility] Comment on above: Performed By: #### L FV3734, AYQ7652, QIQ9467, ANP5238 ####[place] [address] Differential type Auto Normal [facility] Comment on above: Performed By: #### L WY9592, JOK9673, ISO1246, MAM5700 ####[place] [address] Eosinophils (Bld) [#/Vol] 0.2 10*3/uL Normal 0.0-0.5 [facility] Comment on above: Performed By: #### L AN8797, PBI2808, RKJ1323, KBL4970 ####[place] [address] Eosinophils/100 WBC (Bld) 4.3 % Normal 0.3-5.0 [facility] Comment on above: Performed By: #### L LI5623, KSK1197, MUS6134, QMW5452 ####[place] [address] Erythrocyte distribution width (RBC) [Ratio] 16.3 % Normal 10.7-18.7 [facility] Comment on above: Performed By: #### L RL5088, YRP7819, XVM5613, HZW6979 ####[place] [address] Hematocrit (Bld) [Volume fraction] 31.0 % Low 33.0-51.0 [facility] Comment on above: Performed By: #### L QW3121, VMQ6521, ZLI0000, DBT4888 ####[place] [address] Hemoglobin (Bld) [Mass/Vol] 10.5 g/dL Low 12.0-16.0 [facility] Comment on above: Performed By: #### L CS9881, EKN8720, GVO3229, UXW4501 ####[place] [address] Lymphocytes (Bld) [#/Vol] 0.9 10*3/uL Low 1.1-5.0 [facility] Comment on above: Performed By: #### L OX5073, HPJ5149, AHE7532, MFB2325 ####[place] [address] Lymphocytes/100 WBC (Bld) 20.0 % Low 24.0-44.0 [facility] Comment on above: Performed By: #### L LP9184, RUJ6808, HCP4970, YQZ2201 ####[place] [address] MCH (RBC) [Entitic mass] 32.0 pg Normal 26.0-34.0 [facility] Comment on above: Performed By: #### L LU9200, VNT7083, TSU2148, ERU8226 ####BABAT[place] [address] [address] MCHC (RBC) [Mass/Vol] 33.8 g/dL Normal 32.0-36.0 [facility] Comment on above: Performed By: #### L CB4285, ZVT8750, EEL6556, IXC4426 ####[place] [address] MCV (RBC) [Entitic vol] 94.8 fL Normal 80.0-100.0 [facility] Comment on above: Performed By: #### L IZ7127, MKI2589, IGU1810, UQA7732 ####[place] [address] Monocytes (Bld) [#/Vol] 0.6 10*3/uL Normal 0.0-1.4 [facility] Comment on above: Performed By: #### L EN2750, STV1794, ZQV8001, XHD2627 ####[address] [address] Monocytes/100 WBC (Bld) 12.1 % Normal 2.1-13.3 [facility] Comment on above: Performed By: #### L VX1754, HAG5568, VGG1381, PCJ7380 ####[place] [address] Neutrophils, Abs. 2.9 10*3/uL Normal 1.5-8.5 [facility] Comment on above: Performed By: #### L QI6010, EMB4809, TNC3821, EZD3188 ####[address] [address] Neutrophils/100 WBC (Bld) 62.8 % Normal 35.0-66.0 [facility] Comment on above: Performed By: #### L FM8945, EPM5194, GQC8023, MDT2455 ####[place] [address] Platelet Cnt 46 10*3/uL Critically low 150-450 [facility] Comment on above: Performed By: #### L HI5732, XKF6461, JAJ0100, GAD6289 ####[place] [address] Platelet mean volume (Bld) [Entitic vol] 10.0 fL Normal 6.5-10.0 [facility] Comment on above: Performed By: #### L XB0770, STI0845, WAC4495, ZZE3064 ####[place] [address] RBC (Bld) [#/Vol] 3.27 10*6/uL Low 4.00-5.20 [facility] Comment on above: Performed By: #### L QJ9707, WQU7307, FGX0714, QAJ1011 ####[place] [address] WBC (Bld) [#/Vol] 4.6 10*3/uL Normal 4.5-11.0 [facility] Comment on above: Performed By: #### L PU9770, EFI8145, HNX7537, PNR7138 ####[place] [address] COMPREHENSIVE METABOLIC PANE [place] 09-04-2024 Albumin [Mass/Vol] 2.4 g/dL Low 3.2-5.0 [facility] Comment on above: Order Comment: Varela d to and read back by willard Ohplt, at 01:33 on 09/04/2024, KBM Performed By: #### L AE7530, CZP8975, VAS3016, BZQ6403 ####[place] [address] Albumin/Globulin [Mass ratio] 0.8 {ratio} Normal [facility] Comment on above: Order Comment: Varela d to and read back by willard s :plt, at 01:33 on 09/04/2024, KBM Performed By: #### L LA5678, WSH7923, DOT7437, KOE8546 ####[place] [address] ALP [Catalytic activity/Vol] 104 U/L Normal 42-121 [facility] Comment on above: Order Comment: Varela d to and read back by willard vuong :plt, at 01:33 on 09/04/2024, KBM Performed By: #### L XW9590, WRV0751, VSR7148, FKV5668 ####[place] [address] ALT [Catalytic activity/Vol] 86 U/L High 10-60 [facility] Comment on above: Order Comment: Varela d to and read back by willard vuong :plt, at 01:33 on 09/04/2024, KBM Performed By: #### L KS9890, HOW5806, NQR3567, VTU4044 ####[place] [address] Anion gap [Moles/Vol] 5 mmol/L Normal Kin [facility] Comment on above: Order Comment: Varela d to and read back by willard vuong :plt, at 01:33 on 09/04/2024, KBM Performed By: #### L QA6147, UJP5395, EBP7760, JXW7623 ####[place] [address] AST [Catalytic activity/Vol] 140 U/L High 10-42 [facility] Comment on above: Order Comment: Varela d to and read back by willard vuong :plt, at 01:33 on 09/04/2024, KBM Performed By: #### L NB7763, GJV8750, FUB5695, WIM9706 ####[place] [address] B/C 10 Normal 10-20 [facility] Comment on above: Order Comment: Varela d to and read back by willard vuong :plt, at 01:33 on 09/04/2024, KBM Performed By: #### L FT4711, NBV7378, EFS4150, RVW0774 ####[place] [address] Bilirubin.direct [Mass/Vol] 1.4 mg/dL High 0.2-1.0 [facility] Comment on above: Order Comment: Varela d to and read back by willard vuong :plt, at 01:33 on 09/04/2024, KBM Performed By: #### L PQ3554, CKI5546, NYA0750, IBE6347 ####[place] [address] Calcium [Mass/Vol] 8.0 mg/dL Low 8.5-10.5 [facility] Comment on above: Order Comment: Varela d to and read back by willard vuong :plt, at 01:33 on 09/04/2024, KBM Performed By: #### L UK1329, MZZ7949, GIW1419, GLB3815 ####[place] [address] Chloride [Moles/Vol] 105 mmol/L Normal 101-111 [facility] Comment on above: Order Comment: Varela d to and read back by willard vuong :plt, at 01:33 on 09/04/2024, KBM Performed By: #### L BB8091, LOB1325, YBE6532, FJK1748 ####[place] [address] CO2 [Moles/Vol] 24 mmol/L Normal 21-31 [facility] Comment on above: Order Comment: Varela d to and read back by willard vuong :plt, at 01:33 on 09/04/2024, KBM Performed By: #### L QN4925, FIW0983, JEB3217, ZSS6462 ####[place] [address] Creatinine [Mass/Vol] 0.8 mg/dL Normal 0.4-1.0 [facility] Comment on above: Order Comment: Varela d to and read back by willard vuong :plt, at 01:33 on 09/04/2024, KBM Performed By: #### L TD8885, HBH1721, NNJ1171, MVL8286 ####[place] [address] GFR/1.73 sq M.predicted MDRD (S/P/Bld) [Vol rate/Area] 76 mL/min/{1.73_m2} Normal [facility] Comment on above: Order Comment: Varela d to and read back by willard lai, at 01:33 on 09/04/2024, KBM Result Comment: *The estimated Glomerular Filtration Rate(EGFR) may not be accurate for children under the age of 18 yrs. To estimate the GFR for -Americans multiply the result provided by 1.21.Stage 1 90 mL/min or greaterStage 2 60-89 mL/minStage 3 30-59 mL/minStage 4 15-29 mL/minStage 5 14 mL/min or less Performed By: #### L DG7453, OJQ2631, SBU9550, TCC3527 ####[place] [address] Glucose [Mass/Vol] 146 mg/dL High 70-110 [facility] Comment on above: Order Comment: Varela d to and read back by willard lai, at 01:33 on 09/04/2024, KBM Performed By: #### L UQ2836, XTP1214, AUG7349, RTA3603 ####[place] [address] Osmolality [Osmolality] 269 mosm/kg Normal 266-309 [facility] Comment on above: Order Comment: Varela d to and read back by willard Ohplt, at 01:33 on 09/04/2024, KBM Performed By: #### L DX7105, TSA5032, CAA8599, HST0631 ####[place] [address] Potassium [Moles/Vol] 3.8 mmol/L Normal 3.6-5.0 [facility] Comment on above: Order Comment: Varela d to and read back by willard Ohplt, at 01:33 on 09/04/2024, KBM Performed By: #### L FW6798, OOL9190, SOY6027, FCX3575 ####[place] [id number] [place] [address] Protein [Mass/Vol] 5.3 g/dL Low 6.1-7.8 [facility] Comment on above: Order Comment: Varela d to and read back by willard Ohplt, at 01:33 on 09/04/2024, KBM Performed By: #### L FJ1132, UWZ3516, CVP5848, UZF2121 ####[place] [address] Sodium [Moles/Vol] 134 mmol/L Low 135-145 [facility] Comment on above: Order Comment: Varela d to and read back by willard Ohplt, at 01:33 on 09/04/2024, KBM Performed By: #### L PM0320, NAH1817, VKM6488, DAU6259 ####[place] [address] Urea nitrogen [Mass/Vol] 8 mg/dL Normal 2-32 [facility] Comment on above: Order Comment: Varela d to and read back by willard Ohplt, at 01:33 on 09/04/2024, KBM Performed By: #### L CM9621, LZR4064, YVX9014, RXZ5959 ####[place] [address] CT ABDOMEN and PELVIS-NO CON TRASTon 09-04-2024 CT ABDOMEN and PELVIS-NO CONTRAST Normal [facility] FLUID CELL COUNTon 4 Character (U) Hazy Normal [facility] Comment on above: Order Comment: Ascit es Performed By: #### L YN7290, QMN2661, IAG8365, EEL0545, YBR8761, TZE3724 ####[facility] [id number] [place] [address] Color (U) Yellow Normal [facility] Comment on above: Order Comment: Ascit es Performed By: #### L UQ0389, QPC0242, DXU8335, QOJ9719, RZQ4098, QPS2786 ####[place] [address] FLD COMMENT see below [facility] Comment on above: Order Comment: Ascit es Result Comment: Refe rence ranges & other method performance specifications have not beenestablished for this body fluid type. The test result must be integratedinto the clinical context for interpretation. Performed By: #### L XL9771, DUH9638, QNW4763, MVR9517, FQN4159, WHS0203 ####[facility] [id number] [place] [address] RBC 229 uL [facility] Comment on above: Order Comment: Ascit es Performed By: #### L DN6266, PTQ9714, TFJ5646, PJT3886, INR3486, URX6075 ####[place] [address] SOURCE Ascites [facility] Comment on above: Order Comment: Ascit es Performed By: #### L ND6810, NAB1076, YEU2318, RHI7203, ANC0331, IUL0779 ####[place] [address] TOTAL NUC. CELLS 134 uL [facility] Comment on above: Order Comment: Ascit es Result Comment: RESU LTS OF COUNT MAY BE INACCURATE IF SPECIMEN IS PARTIALLYCLOTTED OR EXHIBIT CELL CLUMPING. Performed By: #### L UU5937, LID5348, GLP4713, UUW7010, ZVG6683, UVI1127 ####[facility] [place] [address] TUBE NUMBER Syringe [facility] Comment on above: Order Comment: Ascit es Performed By: #### L GR9369, CKZ3010, TZZ2958, DMO6546, KAY3767, LZH1840 ####[facility] [place] [address] VOLUME 61.0 [facility] Comment on above: Order Comment: Ascit es Performed By: #### L EH8927, ZTA7366, LGB5650, QKY6355, OHQ9169, HSW0879 ####[place] [address] FLUID CULTUREon 09-04-2024 FLUID CULTURE Bacteria identified in Body fluid by Culture FLUID CULTURE: No Growth - Preliminary Microscopic observation [Identifier] in Specimen by Gram stain GRAM STAIN SMEAR: No WBC'S. No organisms seen. Normal [facility] Comment on above: Performed By: #### L TC2787 ####[place] [address] GLUCOSE, FLUIDon 09-04-2024 GLUCOSE, FLUID 134 mg/dL Normal [facility] Comment on above: Order Comment: Ascit es Result Comment: Refe rence ranges & other method performance specifications have not beenestablished for this body fluid type. The test result must be integratedinto the clinical context for interpretation. Performed By: #### L EA9521, LME6687, UZN2112, XOZ2189, YJR6785, DLA9754 ####[place] [address] LDH, FLUIDon 09-04-2024 LDH FLUID 37 [iU]/L Low 60-160 [facility] Comment on above: Order Comment: Ascit es Performed By: #### L NP1643, WOP4434, BVL2939, BAQ6092, VPM6977, KXX5926 ####[place] [address] MAGNESIUMon 09-04-2024 Magnesium [Mass/Vol] 1.7 mg/dL Normal 1.7-2.8 [facility] Comment on above: Performed By: #### L VR7293 ####[place] [address] Magnesium [Mass/Vol] 1.5 mg/dL Low 1.7-2.8 [facility] Comment on above: Order Comment: Nichole connelly to and read back by willard lai, at 01:33 on 09/04/2024, KBM Performed By: #### L DK4479, UWF9872, WXC8559, IKI5522 ####[place] [id number] NON CIGAR WRAPPER TENDER AUTOMATIC CASESon 09-04-2024 NON CIGAR WRAPPER TENDER AUTOMATIC CASES Normal [facility] Comment on above: Performed By: #### L FH5639 ####[place] [address] PH, FLUIDon 09-04-2024 PH, FLUID 7.5 Normal [facility] Comment on above: Order Comment: Ascit es Performed By: #### L NN1810, FQZ3611, MZR7050, SCC6971, EBL2311, YGJ7256 ####[place] [address] PT INRon 09-04-2024 INR Coag (PPP) [Relative time] 1.6 {INR} High 0.9-1.1 [facility] Comment on above: Result Comment: CORRIE Luciano OF THERAPY INDICATIONS TARGET INR RANGESTANDARD DOSE TREATMENT OF VENOUS THROMBOSIS 2.0-3.0 TREATMENT OF PULMONARY EMBOLUS PROPHYLAXIS AGAINST VENOUS THROMBOSIS BY SYSTEMIC EMBOLIZATION .HIGH DOSE HIGH RISK PATIENTS WITH 2.5-3.5 MECHANICAL HEART VALVES Performed By: #### L VL7627 ####[place] [address] PT Coag (PPP) [Time] 18.6 s High 10.1-13.7 [facility] Comment on above: Performed By: #### L RR8652 ####[place] [address] Protein, Fluidon 09-04-2024 Protein, Fluid < 3.0 Normal [facility] Comment on above: Order Comment: Ascit es Performed By: #### L QR8019, MQQ5772, KOC9779, YIC9557, ISD8649, AGQ0997 ####[place] [address] SOURCE ascites Normal [facility] Comment on above: Order Comment: Ascit es Performed By: #### L UP1029, HYH9524, HVJ0730, TBL1484, QWY8492, ZQV7538 ####[place] [address] VASCULAR PROCEDUREon 024 VASCULAR PROCEDURE Normal [facility] AMMONIAon 09-03-2024 Ammonia (P) [Moles/Vol] 122 umol/L Critically high 11-50 [facility] Comment on above: Order Comment: Nichole connelly to and read back by AICHA IRVING/ WILLARD Vuong at 02:13 on 09/03/2024, TB3 Performed By: #### L XX7105, PLK7066, IJQ1256, VVF7446 ####[place] [address] CBC w/ Differentialon 2023 Basophil Abs. 0.0 10*3/uL Normal 0.0-0.1 [facility] Comment on above: Performed By: #### L OH1167, ZWZ7804, NAB5958, QVP1061 ####[place] [address] Basophils/100 WBC (Bld) 0.8 % Normal 0.0-1.0 [facility] Comment on above: Performed By: #### L XE2079, BDX8745, TCX9430, NOA6343 ####[place] [address] Differential type Auto Normal [facility] Comment on above: Performed By: #### L AI4555, ZUP1204, GJL1346, XOS4642 ####[place] [address] Eosinophils (Bld) [#/Vol] 0.2 10*3/uL Normal 0.0-0.5 [facility] Comment on above: Performed By: #### L SX2365, DAK3908, NMD3140, VZG1418 ####[address] [address] Eosinophils/100 WBC (Bld) 4.1 % Normal 0.3-5.0 [facility] Comment on above: Performed By: #### L SH6726, IBG7972, XKT9430, RLW7180 ####[place] [address] Erythrocyte distribution width (RBC) [Ratio] 16.5 % Normal 10.7-18.7 [facility] Comment on above: Performed By: #### L YC5665, DRJ3867, LPV1129, UKJ9478 ####[place] [address] Hematocrit (Bld) [Volume fraction] 30.9 % Low 33.0-51.0 [facility] Comment on above: Performed By: #### L LF1777, VVR6091, NEI8654, YWW8044 ####[place] [address] Hemoglobin (Bld) [Mass/Vol] 10.5 g/dL Low 12.0-16.0 [facility] Comment on above: Performed By: #### L YD7855, YXX8199, VDH3102, XVP5880 ####[place] [address] Lymphocytes (Bld) [#/Vol] 1.1 10*3/uL Normal 1.1-5.0 [facility] Comment on above: Performed By: #### L DB3606, DAD7865, VXB9106, XED9744 ####[place] [address] Lymphocytes/100 WBC (Bld) 24.9 % Normal 24.0-44.0 [facility] Comment on above: Performed By: #### L EC5499, YIS8112, HFR8305, JEP1844 ####[place] [address] MCH (RBC) [Entitic mass] 32.2 pg Normal 26.0-34.0 [facility] Comment on above: Performed By: #### L ET7173, OQE1186, JJG3146, JTZ9296 ####[address] [address] MCHC (RBC) [Mass/Vol] 33.8 g/dL Normal 32.0-36.0 [facility] Comment on above: Performed By: #### L TJ8582, GFX7991, QUK8422, SBG5355 ####[facility] [id number] [place] [address] MCV (RBC) [Entitic vol] 95.3 fL Normal 80.0-100.0 [facility] Comment on above: Performed By: #### L DB2979, HNJ8322, BDV2848, RQH4128 ####[address] [address] Monocytes (Bld) [#/Vol] 0.5 10*3/uL Normal 0.0-1.4 [facility] Comment on above: Performed By: #### L IW6447, GXF2467, EQV4147, DYT4087 ####[place] [address] Monocytes/100 WBC (Bld) 10.7 % Normal 2.1-13.3 [facility] Comment on above: Performed By: #### L LP9087, ACM6086, KFV1215, KAC3323 ####[place] [address] Neutrophils, Abs. 2.7 10*3/uL Normal 1.5-8.5 [facility] Comment on above: Performed By: #### L ER7424, LPJ9346, DIQ3119, KIE0475 ####[place] [address] Neutrophils/100 WBC (Bld) 59.5 % Normal 35.0-66.0 [facility] Comment on above: Performed By: #### L HV3115, BGU8167, SNT3134, NTB7399 ####[address] [address] Platelet Cnt 53 10*3/uL Low 150-450 [facility] Comment on above: Performed By: #### L WN9941, JCG1752, ECD1198, VUY6901 ####[address] [address] Platelet mean volume (Bld) [Entitic vol] 10.4 fL High 6.5-10.0 [facility] Comment on above: Performed By: #### L HS3486, LWF0705, ZRM5843, GGW6981 ####BABATUNDE [id number] [place] [address] RBC (Bld) [#/Vol] 3.24 10*6/uL Low 4.00-5.20 [facility] Comment on above: Performed By: #### L EC1411, TIN0914, RDY9986, XXA4267 ####[place] [address] WBC (Bld) [#/Vol] 4.5 10*3/uL Normal 4.5-11.0 [facility] Comment on above: Performed By: #### L EN5961, IXN4673, WAM4694, SMV6626 ####[place] [address] COMPREHENSIVE METABOLIC PANE [place] 09-03-2024 Albumin [Mass/Vol] 2.3 g/dL Low 3.2-5.0 [facility] Comment on above: Performed By: #### L OI7133, EZG2182, SAI3750, JUB1188 ####[place] [address] Albumin/Globulin [Mass ratio] 0.8 {ratio} Normal [facility] Comment on above: Performed By: #### L DM9674, TRH6944, SXC5264, ZWR3125 ####BABATUNDE [place] [address] ALP [Catalytic activity/Vol] 110 U/L Normal 42-121 [facility] Comment on above: Performed By: #### L JP2792, FWI0909, LHY1309, VZM5877 ####[place] [address] ALT [Catalytic activity/Vol] 78 U/L High 10-60 [facility] Comment on above: Performed By: #### L MJ7608, WIK8435, XRJ5972, PDB6187 ####BABATUNDE Harvey [address] [place] [address] Anion gap [Moles/Vol] 3 mmol/L Normal [facility] Comment on above: Performed By: #### L DQ6813, MAF0978, XDO7787, OBH4925 ####[place] [address] AST [Catalytic activity/Vol] 126 U/L High 10-42 [facility] Comment on above: Performed By: #### L QJ5978, EVL4644, AFH4004, SHI3992 ####[place] [address] B/C 9 Low 10-20 [facility] Comment on above: Performed By: #### L MR1461, JPL3600, UDZ5981, IXB3533 ####[place] [address] Bilirubin.direct [Mass/Vol] 1.5 mg/dL High 0.2-1.0 [facility] Comment on above: Performed By: #### L FH3739, KMZ2084, FAT2540, DPC0596 ####[place] [address] Calcium [Mass/Vol] 8.3 mg/dL Low 8.5-10.5 [facility] Comment on above: Performed By: #### L DU8499, VCA9511, LXW7392, PFL3352 ####[place] [address] Chloride [Moles/Vol] 111 mmol/L Normal 101-111 [facility] Comment on above: Performed By: #### L JS5473, BTD5202, LWX9634, MFU4162 ####[place] [address] CO2 [Moles/Vol] 22 mmol/L Normal 21-31 [facility] Comment on above: Performed By: #### L PS0451, FIT7891, GYX5853, WUE2461 ####[place] [address] Creatinine [Mass/Vol] 1.0 mg/dL Normal 0.4-1.0 [facility] Comment on above: Performed By: #### L AO4528, IVO9007, YRB5823, PFV9574 ####[facility] [address] [place] [address] GFR/1.73 sq M.predicted MDRD (S/P/Bld) [Vol rate/Area] 58 mL/min/{1.73_m2} Normal [facility] Comment on above: Result Comment: *The estimated Glomerular Filtration Rate(EGFR) may not be accurate for children under the age of 18 yrs. To estimate the GFR for -Americans multiply the result provided by 1.21.Stage 1 90 mL/min or greaterStage 2 60-89 mL/minStage 3 30-59 mL/minStage 4 15-29 mL/minStage 5 14 mL/min or less Performed By: #### L MI3121, NRB7118, VGX4375, CTT2563 ####BABTAUNDE [facility] [place] [address] Glucose [Mass/Vol] 138 mg/dL High 70-110 [facility] Comment on above: Performed By: #### L CP6593, DQH7188, EZH4826, IOA3950 ####BABATUNDE [facility] [place] [address] Osmolality [Osmolality] 273 mosm/kg Normal 266-309 [facility] Comment on above: Performed By: #### L CH3918, WVF4575, SRZ2465, DQA1441 ####BABATUNDE [facility] [place] [address] Potassium [Moles/Vol] 3.9 mmol/L Normal 3.6-5.0 [facility] Comment on above: Performed By: #### L SF2956, BBN0403, WDE5895, AZR7433 ####[facility] [place] [address] Protein [Mass/Vol] 5.2 g/dL Low 6.1-7.8 [facility] Comment on above: Performed By: #### L SO4356, DBE0115, KXP7411, RWL6958 ####BABATUNDE Harvey [address] [place] [address] Sodium [Moles/Vol] 136 mmol/L Normal 135-145 [facility] Comment on above: Performed By: #### L IV9123, LOR5300, VIB7771, FDW5682 ####BABATUNDE [address] [address] Urea nitrogen [Mass/Vol] 9 mg/dL Normal 2-32 [facility] Comment on above: Performed By: #### L CI3228, PBQ6319, LNV4803, IZH6202 ####BABATUNDE [address] [address] GLUCOSE, GLUCOMETERon 2023 Glucose [Mass/Vol] 119 mg/dL High 70-110 [facility] Comment on above: Performed By: #### L JP2452 ####BABATUNDE [address] [address] MAGNESIUMon 09-03-2024 Magnesium [Mass/Vol] 1.9 mg/dL Normal 1.7-2.8 [facility] Comment on above: Performed By: #### L WE1917 ####[place] [address] Magnesium [Mass/Vol] 1.5 mg/dL Low 1.7-2.8 [facility] Comment on above: Performed By: #### L ZG6331, CRR2489, RJI8330, KAD6797 ####BABATUNDE [address] [address] CBC w/ Differentialon 2023 Basophil Abs. 0.0 10*3/uL Normal 0.0-0.1 [facility] Comment on above: Performed By: #### L UY4756, KKL4217, XWC4008 ####BABATUNDE [address] [address] Basophils/100 WBC (Bld) 0.8 % Normal 0.0-1.0 [facility] Comment on above: Performed By: #### L BC0875, SKZ3885, EVT8228 ####BABATUNDE [address] [address] Differential type Auto Normal [facility] Comment on above: Performed By: #### L XU5956, XSP8076, JRZ1705 ####[place] [address] Eosinophils (Bld) [#/Vol] 0.2 10*3/uL Normal 0.0-0.5 [facility] Comment on above: Performed By: #### L TT7516, VZQ2947, NMO0873 ####[place] [address] Eosinophils/100 WBC (Bld) 3.7 % Normal 0.3-5.0 [facility] Comment on above: Performed By: #### L IP4679, NDY8820, WXJ1767 ####[place] [address] Erythrocyte distribution width (RBC) [Ratio] 16.4 % Normal 10.7-18.7 [facility] Comment on above: Performed By: #### L IH4237, SDA7048, TBC5512 ####[place] [address] Hematocrit (Bld) [Volume fraction] 32.9 % Low 33.0-51.0 [facility] Comment on above: Performed By: #### L RY3731, JVE7680, UYY4934 ####[place] [address] Hemoglobin (Bld) [Mass/Vol] 11.2 g/dL Low 12.0-16.0 [facility] Comment on above: Performed By: #### L XK3579, JUW0294, HKB6123 ####[place] [address] Lymphocytes (Bld) [#/Vol] 1.3 10*3/uL Normal 1.1-5.0 [facility] Comment on above: Performed By: #### L BL6093, KRF7636, EQO8682 ####[place] [address] Lymphocytes/100 WBC (Bld) 22.4 % Low 24.0-44.0 [facility] Comment on above: Performed By: #### L SO9776, ZJK1077, ANY2591 ####[place] [address] MCH (RBC) [Entitic mass] 32.2 pg Normal 26.0-34.0 [facility] Comment on above: Performed By: #### L GB4402, ELE1951, LGM1319 ####[place] [address] MCHC (RBC) [Mass/Vol] 34.2 g/dL Normal 32.0-36.0 [facility] Comment on above: Performed By: #### L YA4766, POI5018, PFY7714 ####[place] [address] MCV (RBC) [Entitic vol] 94.3 fL Normal 80.0-100.0 [facility] Comment on above: Performed By: #### L SZ3226, UQL1732, CGC7447 ####[place] [address] Monocytes (Bld) [#/Vol] 0.6 10*3/uL Normal 0.0-1.4 [facility] Comment on above: Performed By: #### L RB2610, WBY5614, YSV6195 ####[place] [address] Monocytes/100 WBC (Bld) 9.7 % Normal 2.1-13.3 [facility] Comment on above: Performed By: #### L SF6315, SMK7525, BUW0044 ####[place] [address] Neutrophils, Abs. 3.8 10*3/uL Normal 1.5-8.5 [facility] Comment on above: Performed By: #### L CL1756, CLJ8239, HYX3684 ####[place] [address] Neutrophils/100 WBC (Bld) 63.4 % Normal 35.0-66.0 [facility] Comment on above: Performed By: #### L YS2958, YOR3614, WUM4988 ####[place] [address] Platelet Cnt 59 10*3/uL Low 150-450 [facility] Comment on above: Performed By: #### L GY4289, HHP8231, GTP2112 ####[place] [address] Platelet mean volume (Bld) [Entitic vol] 10.0 fL Normal 6.5-10.0 [facility] Comment on above: Performed By: #### L PM9413, LZE8685, QJE0346 ####[place] [address] RBC (Bld) [#/Vol] 3.49 10*6/uL Low 4.00-5.20 [facility] Comment on above: Performed By: #### L FO4912, TSC8829, URU6035 ####[place] [address] WBC (Bld) [#/Vol] 6.0 10*3/uL Normal 4.5-11.0 [facility] Comment on above: Performed By: #### L DJ6083, AXJ3470, OAD2031 ####[place] [address] COMPREHENSIVE METABOLIC PANE Em[place] 09-02-2024 Albumin [Mass/Vol] 2.6 g/dL Low 3.2-5.0 [facility] Comment on above: Performed By: #### L UM1317, CKZ1283, PXT9844 ####[place] [address] Albumin/Globulin [Mass ratio] 0.9 {ratio} Normal [facility] Comment on above: Performed By: #### L CG2664, ZUN0668, WMV5568 ####[place] [address] ALP [Catalytic activity/Vol] 113 U/L Normal 42-121 [facility] Comment on above: Performed By: #### L OX7203, JLL6657, YRS0815 ####[place] [address] ALT [Catalytic activity/Vol] 87 U/L High 10-60 [facility] Comment on above: Performed By: #### L IL7448, DEA6798, NFD0268 ####[place] [address] Anion gap [Moles/Vol] 5 mmol/L Normal [facility] Comment on above: Performed By: #### L XP8963, SQT5503, TJR3285 ####[place] [address] AST [Catalytic activity/Vol] 130 U/L High 10-42 [facility] Comment on above: Performed By: #### L PX8159, MDE7059, EVT5039 ####[place] [address] B/C 10 Normal 10-20 [facility] Comment on above: Performed By: #### L CR6148, XSQ8608, WMK2148 ####[place] [address] Bilirubin.direct [Mass/Vol] 1.4 mg/dL High 0.2-1.0 [facility] Comment on above: Performed By: #### L IW7753, BQL6885, AMB7271 ####BABATUNDE [address] [address] Calcium [Mass/Vol] 8.1 mg/dL Low 8.5-10.5 [facility] Comment on above: Performed By: #### L AR1511, ZSJ0790, LIU2174 ####BABATUNDE [address] [address] Chloride [Moles/Vol] 111 mmol/L Normal 101-111 [facility] Comment on above: Performed By: #### L NK6690, LJR7902, MXR3058 ####[place] [address] CO2 [Moles/Vol] 21 mmol/L Normal 21-31 [facility] Comment on above: Performed By: #### L LB5838, NPV7235, TIC7922 ####BABATUNDE Harvey [address] [place] [address] Creatinine [Mass/Vol] 0.9 mg/dL Normal 0.4-1.0 [facility] Comment on above: Performed By: #### L LY9374, TQQ9352, CJW4033 ####BABATUNDE [address] [address] GFR/1.73 sq M.predicted MDRD (S/P/Bld) [Vol rate/Area] 66 mL/min/{1.73_m2} Normal [facility] Comment on above: Result Comment: *The estimated Glomerular Filtration Rate(EGFR) may not be accurate for children under the age of 18 yrs. To estimate the GFR for -Americans multiply the result provided by 1.21.Stage 1 90 mL/min or greaterStage 2 60-89 mL/minStage 3 30-59 mL/minStage 4 15-29 mL/minStage 5 14 mL/min or less Performed By: #### L RZ1787, ANF4623, MWV4409 ####BABATUNDE [address] [address] Glucose [Mass/Vol] 89 mg/dL Normal 70-110 [facility] Comment on above: Performed By: #### L JV6392, XBX7479, LWH8197 ####BABATUNDE [facility] [place] [address] Osmolality [Osmolality] 272 mosm/kg Normal 266-309 [facility] Comment on above: Performed By: #### L NU9262, KIT0145, ZMH9226 ####BABATUNDE Harvey [address] [place] [address] Potassium [Moles/Vol] 3.8 mmol/L Normal 3.6-5.0 [facility] Comment on above: Performed By: #### L CP0538, PPL5525, ELC3580 ####BABATUNDE Harvey [address] [place] [address] Protein [Mass/Vol] 5.6 g/dL Low 6.1-7.8 [facility] Comment on above: Performed By: #### L XE5337, GXX6240, RAI2340 ####[facility] [address] [place] [address] Sodium [Moles/Vol] 137 mmol/L Normal 135-145 [facility] Comment on above: Performed By: #### L MI3148, BIV7729, SDK0068 ####BABATUNDE [address] [address] Urea nitrogen [Mass/Vol] 9 mg/dL Normal 2-32 [facility] Comment on above: Performed By: #### L KK5017, FGN5418, SSS6327 ####[place] [address] FREE T4on 09-02-2024 Free T4 [Mass/Vol] 0.69 ng/dL Low 0.70-1.70 [facility] Comment on above: Result Comment: Pau hernandez 05/18/19, Free T4 assays can have false high results when theconcentration of biotin in the patient sample is 10 ng/mL or greater. Performed By: #### L WQ3859, UST2441, SHC7608, ECI5148 ####[facility] [place] [address] HEMOGLOBIN A1Con 09-02-2024 HbA1c (Bld) [Mass fraction] 4.0 % Normal 3.0-6.0 [facility] Comment on above: Performed By: #### L PS2784, LRM0121, MWQ7060, HBL0429 ####BABATUNDE Harvey [address] [place] [address] LIPID PANELon 09-02-2024 Cholesterol [Mass/Vol] 89 mg/dL Normal 10-200 [facility] Comment on above: Performed By: #### L TM1637, CZY3754, TSA6325, ZEG4561 ####[place] [address] Cholesterol in HDL [Mass/Vol] 38.0 mg/dL Normal 29.0-89.0 [facility] Comment on above: Performed By: #### L CI5806, XXC5918, XHX8906, GYX1600 ####[facility] [address] [place] [address] Cholesterol in LDL [Mass/Vol] 42.0 mg/dL Normal [facility] Comment on above: Result Comment: CAP STANDARDIZED LDL-CHOLESTEROL VALUES <130-DESIRABLE 130-159 BORDERLINE/HIGH RISK >160-HIGH RISK Performed By: #### L NK2384, IHO9680, BOE3787, GTI6364 ####[facility] [address] [place] [address] Cholesterol in VLDL [Mass/Vol] 9.0 mg/dL Normal [facility] Comment on above: Performed By: #### L SY6739, TMF4961, NDD1345, MWM1401 ####[facility] [address] [place] [address] RISK 1, FEMALE 2.34 Normal [facility] Comment on above: Result Comment: TOTA L CHOL/HDL 1/2 AVERAGE 3.27 AVERAGE 4.44 2 X AVERAGE 7.05 3 X AVERAGE 11.04 Performed By: #### L YS4471, PCD6090, AOI7197, MTR7657 ####[place] [address] RISK 1, MALE 2.34 Normal [facility] Comment on above: Result Comment: TOTA L CHOL/HDL 1/2 AVERAGE 3.43 AVERAGE 4.97 2 X AVERAGE 9.55 3 X AVERAGE 23.39 Performed By: #### L CA6309, TBW8918, FZC8754, INK9603 ####[facility] [address] [place] [address] RISK 2, FEMALE 1.11 [facility] Comment on above: Result Comment: LDL/ HDL 1/2 AVERAGE 1.47 AVERAGE 3.22 2 X AVERAGE 5.03 3 X AVERAGE 6.14 Performed By: #### L CC1088, NQX9466, LKK3244, QYE6330 ####BABATUNDE Harvey [address] [place] [address] RISK 2, MALE 1.11 [facility] Comment on above: Result Comment: LDL/ HDL 1/2 AVERAGE 1.00 AVERAGE 3.55 2 X AVERAGE 6.25 3 X AVERAGE 7.99 Performed By: #### L FB5852, GKK5943, XLZ1756, KXF7653 ####[id number] [place] [address] Triglyceride [Mass/Vol] 45 mg/dL Low 46-236 [facility] Comment on above: Performed By: #### L GT1700, IRQ2286, GVX2627, FDQ9356 ####[place] [address] MAGNESIUMon 09-02-2024 Magnesium [Mass/Vol] 1.8 mg/dL Normal 1.7-2.8 [facility] Comment on above: Performed By: #### L FG7780, FTT2838, GAP3056 ####[facility]ABSJesus [facility] [address] [place] [address] TSHon 09-02-2024 TSH Qn 2.02 m[IU]/L Normal 0.30-5.60 [facility] Comment on above: Performed By: #### L SI7155, YDN2861, HPI4206, RLU7938 ####[place] [address] XR LUMBAR SPINE AP AND LATER Ale 09-02-2024 XR LUMBAR SPINE AP AND LATERAL Normal [facility] AMMONIAon 09-01-2024 Ammonia (P) [Moles/Vol] 56 umol/L High 11-50 [facility] Comment on above: Performed By: #### L YU3595, ISV6047, AKS1122, TMU3449, UZE8149, JQP5563, FYM0765, UAO5141 ####[facility] [address] [place] [address] BNPon 09-01-2024 Natriuretic peptide B (Bld) [Mass/Vol] 67.0 pg/mL Normal 1.0-100.0 [facility] Comment on above: Result Comment: The BNP test should not be used as absolute evidence of CHF.Elevated BNP blood concentrations may be found in heartattack patients and renal dialysis patients. Performed By: #### L GH9575, CBT1697, LZQ9214, QNL7109, RAJ2394, GBL2863, GJQ2129, XKV1970 ####[place] [address] CBC w/ Differentialon 2023 Basophil Abs. 0.0 10*3/uL Normal 0.0-0.1 [facility] Comment on above: Performed By: #### L MV9940, ITD3327, MYW1016, JPU9683, TMZ1868, KZE1738, DOC4283, XZQ4306 ####[place] [address] Basophils/100 WBC (Bld) 0.4 % Normal 0.0-1.0 [facility] Comment on above: Performed By: #### L KU2882, OFT1210, MZJ2757, TQF9310, OYS1922, LTK1137, VHC9232, WFD8531 ####[place] [address] Differential type Auto Normal [facility] Comment on above: Performed By: #### L TI5936, GHH9125, SYJ0027, BFF6780, ZZO8875, IWZ6536, YBU7905, SGM7071 ####[place] [address] Eosinophils (Bld) [#/Vol] 0.2 10*3/uL Normal 0.0-0.5 [facility] Comment on above: Performed By: #### L SK9757, RHY7881, GIM5014, ELM7533, SDG1263, TCU6222, HBN0545, PIG6622 ####[place] [address] Eosinophils/100 WBC (Bld) 2.9 % Normal 0.3-5.0 [facility] Comment on above: Performed By: #### L SV7155, UQZ0618, IOB8994, XSM2310, RHQ2569, NCE2879, NQK0073, XIZ0810 ####[place] [address] Erythrocyte distribution width (RBC) [Ratio] 16.5 % Normal 10.7-18.7 [facility] Comment on above: Performed By: #### L ER4076, FXI2434, HDJ2418, KWN9521, LMR4945, YQJ5093, YYL7610, XZW8206 ####[place] [address] Hematocrit (Bld) [Volume fraction] 36.3 % Normal 33.0-51.0 [facility] Comment on above: Performed By: #### L PW7211, OUL6872, XLJ6728, JAC0999, CBR1346, YLJ7492, NBD4351, LSA7986 ####[place] [address] Hemoglobin (Bld) [Mass/Vol] 12.5 g/dL Normal 12.0-16.0 [facility] Comment on above: Performed By: #### L AV9955, TDH7667, QNP4671, WRG5080, VRD7598, VIU4690, XDK0241, DWZ2644 ####[place] [address] Lymphocytes (Bld) [#/Vol] 1.0 10*3/uL Low 1.1-5.0 [facility] Comment on above: Performed By: #### L DS9811, LQH6367, PAH1128, EQH7591, LAL6187, VPN7065, WTN9131, EAO6589 ####[place] [address] Lymphocytes/100 WBC (Bld) 15.9 % Low 24.0-44.0 [facility] Comment on above: Performed By: #### L OL5144, EKM2939, GYQ0900, IEI1859, HCM5223, LBT7106, LDC6539, KCM3734 ####[address] [address] MCH (RBC) [Entitic mass] 32.7 pg Normal 26.0-34.0 [facility] Comment on above: Performed By: #### L ZN1190, PMA3492, ZRD5587, PJJ8864, QJT2609, VMJ0201, KSJ9938, MPK9107 ####[place] [address] MCHC (RBC) [Mass/Vol] 34.5 g/dL Normal 32.0-36.0 [facility] Comment on above: Performed By: #### L DE7606, EYE0116, ROU8879, YCV6032, QAH8137, ISZ8661, RLR7592, SOA9598 ####[place] [address] MCV (RBC) [Entitic vol] 94.9 fL Normal 80.0-100.0 [facility] Comment on above: Performed By: #### L CZ9772, TPG2340, VVR2938, AFU4657, CQZ9698, LDG6009, JCY3951, GAI9245 ####[place] [address] MDW 17.7 Normal 0.0-20.0 [facility] Comment on above: Performed By: #### L MI4389, OHX9447, CCI6318, QMS3240, LVH5407, EWF5058, LTZ9829, VQK8229 ####[place] [address] Monocytes (Bld) [#/Vol] 0.7 10*3/uL Normal 0.0-1.4 [facility] Comment on above: Performed By: #### L LM5402, YOI1988, QCM6437, MRT1689, ZBV1195, JCE7619, TYV8802, JIX7199 ####[place] [address] Monocytes/100 WBC (Bld) 11.3 % Normal 2.1-13.3 [facility] Comment on above: Performed By: #### L QE7760, CXJ0702, OQW7851, KBM8191, KHP9428, VDR5341, ITE1693, GNU9948 ####[place] [address] Neutrophils, Abs. 4.5 10*3/uL Normal 1.5-8.5 [facility] Comment on above: Performed By: #### L XS8834, BVX9273, MFD3860, WAV0301, WFA5213, VTE2809, ZOJ4846, MXL2782 ####[place] [address] Neutrophils/100 WBC (Bld) 69.5 % High 35.0-66.0 [facility] Comment on above: Performed By: #### L UZ0749, XLV0319, JFN2921, TNZ4372, LVH4064, VUR8419, RRO2838, KZR4785 ####[address] [address] Platelet Cnt 60 10*3/uL Low 150-450 [facility] Comment on above: Performed By: #### L JO7827, EGX3697, FIE4423, GTU5349, SLI0604, JAQ9128, JYI6533, DFG5227 ####[place] [address] Platelet mean volume (Bld) [Entitic vol] 9.7 fL Normal 6.5-10.0 [facility] Comment on above: Performed By: #### L BU9130, RCA5532, KNB4416, VTR2363, RHC2074, DVU3744, QDU8962, HJL1711 ####[address] [address] RBC (Bld) [#/Vol] 3.82 10*6/uL Low 4.00-5.20 [facility] Comment on above: Performed By: #### L PU1999, ABM6822, DIX7774, VTK9476, DAI4904, SFB7783, FYU1019, EBV7846 ####[address] [address] WBC (Bld) [#/Vol] 6.4 10*3/uL Normal 4.5-11.0 [facility] Comment on above: Performed By: #### L RF5651, WAQ3991, XSL0948, VOW5692, GJT9445, CJM3450, TBY0920, DHS2811 ####[place] [address] COMPREHENSIVE METABOLIC PANE [place] 09-01-2024 Albumin [Mass/Vol] 2.7 g/dL Low 3.2-5.0 [facility] Comment on above: Performed By: #### L KX0535, PQC7161, DKA0182, TRG4950, WNB6134, JTM0850, HGC6067, NNX5514 ####[place] [address] Albumin/Globulin [Mass ratio] 0.8 {ratio} Normal [facility] Comment on above: Performed By: #### L JV9955, TVL5796, EWY2331, SDJ1179, VGY5838, XLS2739, ROQ3688, JLE2950 ####[place] [address] ALP [Catalytic activity/Vol] 125 U/L High 42-121 [facility] Comment on above: Performed By: #### L YT8396, SCD4360, YXK0420, UEI1608, BYH4324, MOR8083, LEX4009, FKA5208 ####[place] [address] ALT [Catalytic activity/Vol] 93 U/L High 10-60 [facility] Comment on above: Performed By: #### L AB0399, DAC4501, FKA9439, XHU2907, WNF8993, UBX7910, JIJ8637, PWL1082 ####[place] [address] Anion gap [Moles/Vol] 4 mmol/L Normal [facility] Comment on above: Performed By: #### L JY8909, GEE6367, AOO1158, RYI7884, GCM2043, AED7386, RCZ6468, QAL7728 ####[place] [address] AST [Catalytic activity/Vol] 137 U/L High 10-42 [facility] Comment on above: Performed By: #### L ST5864, IQM0161, PRK1554, ZNB8258, MQD7948, UYL4442, TBN0831, BNL7721 ####[place] [address] B/C 9 Low 10-20 [facility] Comment on above: Performed By: #### L UX7399, VQO3538, EQL5867, LJM1363, QEJ4379, QWW2870, NXV6910, RHB9616 ####[place] [address] Bilirubin.direct [Mass/Vol] 1.7 mg/dL High 0.2-1.0 [facility] Comment on above: Performed By: #### L JL4945, KRN3569, MBL2609, XBO6933, AJB5326, LTL5084, WZQ6241, KOF1660 ####[place] [address] Calcium [Mass/Vol] 8.2 mg/dL Low 8.5-10.5 [facility] Comment on above: Performed By: #### L XF8336, VKQ5215, LCP6890, CFG3616, TIB2843, MRS9589, UJE3206, AKJ6747 ####[place] [address] Chloride [Moles/Vol] 111 mmol/L Normal 101-111 [facility] Comment on above: Performed By: #### L IR2307, YSQ9468, YLC8209, UKT9141, TKP7866, WAN4153, FMA1025, DCN2580 ####[place] [address] CO2 [Moles/Vol] 22 mmol/L Normal 21-31 [facility] Comment on above: Performed By: #### L SW0808, UXT4436, LNF3857, TSC1325, LPI5478, XJV5556, DEO7903, TKG0117 ####[address] [address] Creatinine [Mass/Vol] 1.0 mg/dL Normal 0.4-1.0 [facility] Comment on above: Performed By: #### L NH0409, NQO2934, UEU9444, SNP5944, AIQ2415, NNI8794, HVV3368, OFZ2224 ####[place] [address] GFR/1.73 sq M.predicted MDRD (S/P/Bld) [Vol rate/Area] 58 mL/min/{1.73_m2} Normal [facility] Comment on above: Result Comment: *The estimated Glomerular Filtration Rate(EGFR) may not be accurate for children under the age of 18 yrs. To estimate the GFR for -Americans multiply the result provided by 1.21.Stage 1 90 mL/min or greaterStage 2 60-89 mL/minStage 3 30-59 mL/minStage 4 15-29 mL/minStage 5 14 mL/min or less Performed By: #### L UD1274, RDR7645, JHG6041, GDU4803, DGM9691, DVF9796, TQW2520, TEH1538 ####[place] [address] Glucose [Mass/Vol] 98 mg/dL Normal 70-110 [facility] Comment on above: Performed By: #### L DQ2220, YCN5849, ROG9185, WEG4131, EJM3517, RAV2986, KWR4951, QBE7875 ####[address] [address] Osmolality [Osmolality] 272 mosm/kg Normal 266-309 [facility] Comment on above: Performed By: #### L CV7335, SCC5626, NGZ7442, AZC3439, WGG1367, OZR0345, PHG6828, OUG4569 ####[place] [address] Potassium [Moles/Vol] 3.9 mmol/L Normal 3.6-5.0 [facility] Comment on above: Performed By: #### L OA5761, BSB2164, WSV2428, BHN3503, CPQ3933, JXX9893, EWY4668, BXS0524 ####[place] [address] Protein [Mass/Vol] 6.1 g/dL Normal 6.1-7.8 [facility] Comment on above: Performed By: #### L AI9297, DZG8932, WHJ4667, IBM5040, FGQ6205, SIT6592, XAT3845, YTY9975 ####[place] [address] Sodium [Moles/Vol] 137 mmol/L Normal 135-145 [facility] Comment on above: Performed By: #### L XL1487, PLO5430, KCZ2260, BFQ6590, FQY3469, UON1790, YMB4867, TAM6107 ####[place] [address] Urea nitrogen [Mass/Vol] 9 mg/dL Normal 2-32 [facility] Comment on above: Performed By: #### L WS0546, GKU9734, SUR5033, TZF7880, UGI1994, TST3521, JWV6845, PXK7482 ####[place] [address] LACTIC ACIDon 09-01-2024 Lactate [Moles/Vol] 1.5 mmol/L Normal 0.5-1.9 [facility] Comment on above: Performed By: #### L GH7972, WAJ4137, ZXC4145, VZC2079, VIF9018, NZJ2927, HSI5421, EGU6082 ####[place] [address] LIPASEon 09-01-2024 Lipase [Catalytic activity/Vol] 42 U/L Normal 11-82 [facility] Comment on above: Performed By: #### L WJ9627, GJD5502, BGO4608, FQJ2182, YKZ6718, KWX9277, ZHA9848, WUO8022 ####[place] [address] PROCALCITONIN, Son 4 PROCALCITONIN, S 0.10 ng/mL Normal [facility] Comment on above: Result Comment: . <0 [...] or septic shock. Performed By: #### L GY3006, OBU1088, MNG3164, TQW9721, ZBF7353, AHO0590, KUX0150, FXM7762 ####[address] [address] PT AND APTTon 09-01-2024 aPTT Coag (Bld) [Time] 39.5 s High 25.5-35.9 [facility] Comment on above: Performed By: #### L GP0792, GWN8830, PSI1904, DWI7581, VEA9506, CRE4183, IOD4526, HWV4096 ####[place] [address] INR Coag (PPP) [Relative time] 1.6 {INR} High 0.9-1.1 [facility] Comment on above: Result Comment: CORRIE Luciano OF THERAPY INDICATIONS TARGET INR RANGESTANDARD DOSE TREATMENT OF VENOUS THROMBOSIS 2.0-3.0 TREATMENT OF PULMONARY EMBOLUS PROPHYLAXIS AGAINST VENOUS THROMBOSIS BY SYSTEMIC EMBOLIZATION .HIGH DOSE HIGH RISK PATIENTS WITH 2.5-3.5 MECHANICAL HEART VALVES Performed By: #### L VD8721, YWP0955, MDO3498, MKF4236, NWK6555, OMV6755, EPO9476, OSH5967 ####[address] [address] PT Coag (PPP) [Time] 18.5 s High 10.1-13.7 [facility] Comment on above: Performed By: #### L LB0302, RJM5218, MPW5606, VCI3029, OFE6649, XMY8492, AAX9906, IGT4336 ####[address] [address] XR PORTABLE CHESTon 12-07-20 24 XR PORTABLE CHEST Normal [facility] Vascular Procedureon [facility] Radiology Study observation (narrative) [facility] VASCULAR PROCEDUREon VASCULAR PROCEDURE Normal [facility] VASCULAR PROCEDURE Normal [facility] Vascular Procedureon 024 : Technically successful ultrasound-guided therapeutic paracentesis with aspiration of 2550 cc of cloudy yellow fluid. SIGNED: Ginger Milton MD 08/16/2024 3:32 PM [facility] INTERVENTIONAL RADIOLOGY REPORT PATIENT: Carolina Hightower DATE [...] provided using 1% buffered lidocaine. A 6.5 Nauruan non-locking Resolve pigtail catheter was advanced into the peritoneal space. 2550 cc of cloudy yellow fluid were obtained. The catheter was removed intact. A dry sterile dressing was applied to the puncture site. The patient tolerated the procedure well and there were no immediate complications. The patient was given no IV albumin. FINDINGS: Moderate amount of free peritoneal fluid/ascites. [facility] Radiology Study observation (narrative) [facility] VASCULAR PROCEDUREon VASCULAR PROCEDURE Normal [facility] VASCULAR PROCEDUREon 024 VASCULAR PROCEDURE Normal [facility] CBC w/ Differentialon 2023 Basophil Abs. 0.1 10*3/uL Normal 0.0-0.1 [facility] Comment on above: Performed By: #### L TS5628, ZYT4435, CKO5021 ####[facility] [address] [place] [address] Basophils/100 WBC (Bld) 1.0 % Normal 0.0-1.0 [facility] Comment on above: Performed By: #### L LI5189, STU5756, OQY6958 ####[place] [address] Differential type Auto Normal [facility] Comment on above: Performed By: #### L US6333, KPP6799, DHA9202 ####[place] [address] Eosinophils (Bld) [#/Vol] 0.2 10*3/uL Normal 0.0-0.5 [facility] Comment on above: Performed By: #### L QL8756, ZDG2471, YSI6604 ####[place] [address] Eosinophils/100 WBC (Bld) 4.0 % Normal 0.3-5.0 [facility] Comment on above: Performed By: #### L EF1059, VBN3206, AHR9616 ####[place] [address] Erythrocyte distribution width (RBC) [Ratio] 17.7 % Normal 10.7-18.7 [facility] Comment on above: Performed By: #### L EA9651, CBD5111, AGA8822 ####[facility] [place] [address] Hematocrit (Bld) [Volume fraction] 32.6 % Low 33.0-51.0 [facility] Comment on above: Performed By: #### L ZH9649, KCE5302, BAM3688 ####[place] [address] Hemoglobin (Bld) [Mass/Vol] 11.4 g/dL Low 12.0-16.0 [facility] Comment on above: Performed By: #### L IX9152, JYD5192, LPK6249 ####[place] [address] Lymphocytes (Bld) [#/Vol] 1.0 10*3/uL Low 1.1-5.0 [facility] Comment on above: Performed By: #### L DA1128, ECV0779, ZQN8391 ####[place] [address] Lymphocytes/100 WBC (Bld) 15.7 % Low 24.0-44.0 [facility] Comment on above: Performed By: #### L EU1654, PJS2320, POJ8177 ####[place] [address] MCH (RBC) [Entitic mass] 33.3 pg Normal 26.0-34.0 [facility] Comment on above: Performed By: #### L PU1118, QJZ9164, BVH1084 ####[place] [address] MCHC (RBC) [Mass/Vol] 35.1 g/dL Normal 32.0-36.0 [facility] Comment on above: Performed By: #### L UI7618, III3559, HVV6362 ####[place] [address] MCV (RBC) [Entitic vol] 95.0 fL Normal 80.0-100.0 [facility] Comment on above: Performed By: #### L RB1188, UAS2685, FYK8588 ####[facility] [place] [address] MDW 20.0 Normal 0.0-20.0 [facility] Comment on above: Performed By: #### L VI1935, KBK2103, LIN9917 ####[place] [address] Monocytes (Bld) [#/Vol] 0.6 10*3/uL Normal 0.0-1.4 [facility] Comment on above: Performed By: #### L DT9109, HYW2365, DKE6900 ####[place] [address] Monocytes/100 WBC (Bld) 10.3 % Normal 2.1-13.3 [facility] Comment on above: Performed By: #### L QR6796, ZFY8611, KKD4687 ####[place] [address] Neutrophils, Abs. 4.3 10*3/uL Normal 1.5-8.5 [facility] Comment on above: Performed By: #### L CA0312, ASK2758, BTU4740 ####[place] [address] Neutrophils/100 WBC (Bld) 69.0 % High 35.0-66.0 [facility] Comment on above: Performed By: #### L LK6045, LPU2029, FOK4420 ####[place] [address] Platelet Cnt 65 10*3/uL Low 150-450 [facility] Comment on above: Performed By: #### L ZS2197, SHW6709, QYH3901 ####[place] [address] Platelet mean volume (Bld) [Entitic vol] 9.9 fL Normal 6.5-10.0 [facility] Comment on above: Performed By: #### L PT7004, BMG3666, EJI3467 ####[place] [address] RBC (Bld) [#/Vol] 3.43 10*6/uL Low 4.00-5.20 [facility] Comment on above: Performed By: #### L TY8109, FGJ8706, CXT8364 ####[place] [address] WBC (Bld) [#/Vol] 6.3 10*3/uL Normal 4.5-11.0 [facility] Comment on above: Performed By: #### L ME2659, FWT9640, CZZ1168 ####[place] [address] CBC w/Differentialon 07-26- 024 Basophils (Bld) [#/Vol] 0.1 10*3/uL 0.0 - 0.1 10*3/uL [facility] Basophils/100 WBC (Bld) 1.0 % 0.0 - 1.0 % [facility] Differential cell count method Nom (Bld) Auto [facility] Eosinophils (Bld) [#/Vol] 0.2 10*3/uL 0.0 - 0.5 10*3/uL [facility] Eosinophils/100 WBC (Bld) 4.0 % 0.3 - 5.0 % [facility] Erythrocyte distribution width (RBC) [Ratio] 17.7 % 10.7 - 18.7 % [facility] Hematocrit (Bld) [Volume fraction] 32.6 % Low 33.0 - 51.0 % [facility] Hemoglobin (Bld) [Mass/Vol] 11.4 g/dL Low 12.0 - 16.0 g/dL [facility] Interpretation and review of laboratory results Abnormal [facility] Lymphocytes (Bld) [#/Vol] 1.0 10*3/uL Low 1.1 - 5.0 10*3/uL [facility] Lymphocytes/100 WBC (Bld) 15.7 % Low 24.0 - 44.0 % [facility] MCH (RBC) [Entitic mass] 33.3 pg 26.0 - 34.0 pg [facility] MCHC (RBC) [Mass/Vol] 35.1 g/dL 32.0 - 36.0 g/dL [facility] MCV (RBC) [Entitic vol] 95.0 fL 80.0 - 100.0 fL [facility] Monocyte distribution width Auto (Bld) [Entitic vol] 20.0 0.0 - 20.0 [facility] Monocytes (Bld) [#/Vol] 0.6 10*3/uL 0.0 - 1.4 10*3/uL [facility] Monocytes/100 WBC (Bld) 10.3 % 2.1 - 13.3 % [facility] Neutrophils (Bld) [#/Vol] 4.3 10*3/uL 1.5 - 8.5 10*3/uL [facility] Neutrophils/100 WBC (Bld) 69.0 % High 35.0 - 66.0 % [facility] Platelet mean volume (Bld) [Entitic vol] 9.9 fL 6.5 - 10.0 fL [facility] Platelets (Bld) [#/Vol] 65 10*3/uL Low 150 - 450 10*3/uL [facility] RBC (Bld) [#/Vol] 3.43 10*6/uL Low 4.00 - 5.2 0 10*6/uL [facility] WBC (Bld) [#/Vol] 6.3 10*3/uL 4.5 - 11.0 10*3/uL [facility] COMPREHENSIVE METABOLIC PANE [place] 07-26-2024 Albumin [Mass/Vol] 2.9 g/dL Low 3.2-5.0 [facility] Comment on above: Performed By: #### L FQ0252, CXT1393, DFF8964 ####[place] [address] Albumin/Globulin [Mass ratio] 0.7 {ratio} Normal [facility] Comment on above: Performed By: #### L GJ8342, BAR0441, CXG9691 ####[place] [address] ALP [Catalytic activity/Vol] 123 U/L High 42-121 [facility] Comment on above: Performed By: #### L RA2852, ZBK4868, YEI3887 ####[place] [address] ALT [Catalytic activity/Vol] 65 U/L High 10-60 [facility] Comment on above: Performed By: #### L CM8235, BSE7195, NVL2926 ####[place] [address] [place] [address] Anion gap [Moles/Vol] 2 mmol/L Normal [facility] Comment on above: Performed By: #### L NQ6044, MWH9195, EYP3002 ####[place] [address] AST [Catalytic activity/Vol] 125 U/L High 10-42 [facility] Comment on above: Performed By: #### L LE5731, FRW7165, ZFG3319 ####[place] [address] B/C 12 Normal 10-20 [facility] Comment on above: Performed By: #### L BD2777, NRB8063, ADD8927 ####[place] [address] Bilirubin.direct [Mass/Vol] 1.6 mg/dL High 0.2-1.0 [facility] Comment on above: Performed By: #### L GE0825, JTD6865, VQK8892 ####[place] [address] Calcium [Mass/Vol] 8.7 mg/dL Normal 8.5-10.5 [facility] Comment on above: Performed By: #### L KP8336, VJA7926, ZED2047 ####[place] [address] Chloride [Moles/Vol] 109 mmol/L Normal 101-111 [facility] Comment on above: Performed By: #### L VJ7191, RIV0399, TMC0083 ####[place] [address] CO2 [Moles/Vol] 24 mmol/L Normal 21-31 [facility] Comment on above: Performed By: #### L ZD2510, NOZ9165, QMV7208 ####[place] [address] Creatinine [Mass/Vol] 0.9 mg/dL Normal 0.4-1.0 [facility] Comment on above: Performed By: #### L XW5763, XMD6493, VDW5529 ####[place] [address] GFR/1.73 sq M.predicted MDRD (S/P/Bld) [Vol rate/Area] 66 mL/min/{1.73_m2} Normal [facility] Comment on above: Result Comment: *The estimated Glomerular Filtration Rate(EGFR) may not be accurate for children under the age of 18 yrs. To estimate the GFR for -Americans multiply the result provided by 1.21.Stage 1 90 mL/min or greaterStage 2 60-89 mL/minStage 3 30-59 mL/minStage 4 15-29 mL/minStage 5 14 mL/min or less Performed By: #### L KH8932, PCH5871, IZD8843 ####[place] [address] [address] Glucose [Mass/Vol] 98 mg/dL Normal 70-110 [facility] Comment on above: Performed By: #### L ON1650, XTJ9135, APR8160 ####[place] [address] [address] Osmolality [Osmolality] 269 mosm/kg Normal 266-309 [facility] Comment on above: Performed By: #### L BZ6845, ROB0480, KXP4191 ####[place] [address] Potassium [Moles/Vol] 4.6 mmol/L Normal 3.6-5.0 [facility] Comment on above: Performed By: #### L HK6614, EOG1285, RYE6355 ####[place] [address] Protein [Mass/Vol] 6.8 g/dL Normal 6.1-7.8 [facility] Comment on above: Performed By: #### L JM1955, XAN8311, VWX2995 ####[place] [address] [address] Sodium [Moles/Vol] 135 mmol/L Normal 135-145 [facility] Comment on above: Performed By: #### L QK3608, APO8851, LYD3652 ####[place] [address] [address] Urea nitrogen [Mass/Vol] 11 mg/dL Normal 2-32 [facility] Comment on above: Performed By: #### L EM5424, GFQ0278, CKN6506 ####[place] [address] Comprehensive Metabolic Pane merritt 07-26-2024 Albumin [Mass/Vol] 2.9 g/dL Low 3.2 - 5.0 g/dL [facility] Albumin/Globulin [Mass ratio] 0.7 {ratio} [facility] ALP [Catalytic activity/Vol] 123 U/L High 42 - 121 [iU]/L [facility] ALT [Catalytic activity/Vol] 65 U/L High 10 - 60 [iU]/L [facility] Anion gap [Moles/Vol] 2 mmol/L [facility] AST [Catalytic activity/Vol] 125 U/L High 10 - 42 [iU]/L [facility] Bilirubin [Mass/Vol] 1.6 mg/dL High 0.2 - 1 .0 mg/dL [facility] Calcium [Mass/Vol] 8.7 mg/dL 8.5 - 10. 5 mg/dL [facility] Chloride [Moles/Vol] 109 mmol/L 101 - 1 11 mmol/L [facility] CO2 [Moles/Vol] 24 mmol/L 21 - 31 mmol/L [facility] Creatinine [Mass/Vol] 0.9 mg/dL 0.4 - 1.0 mg/dL [facility] GFR/1.73 sq M.predicted MDRD (S/P/Bld) [Vol rate/Area] 66 mL/min/{1.73_m2} [facility] Comment on above: *The estimated Glome rular [...] [Mass/Vol] 98 mg/dL 70 - 110 mg/dL [facility] Interpretation and review of laboratory results Abnormal [facility] Osmolality Calc [Osmolality] 269 266 - 309 [facility] Potassium [Moles/Vol] 4.6 mmol/L 3.6 - 5.0 mmol/L [facility] Protein [Mass/Vol] 6.8 g/dL 6.1 - 7.8 g/dL [facility] Sodium [Moles/Vol] 135 mmol/L 135 - 145 mmol/L [facility] Urea nitrogen [Mass/Vol] 11 mg/dL 2 - 32 mg/dL [facility] Urea nitrogen/Creatinine [Mass ratio] 12 mg/mg 10 - 20 [facility] PT AND APTTon 07-26-2024 aPTT Coag (Bld) [Time] 38.0 s High 25.5-35.9 [facility] Comment on above: Performed By: #### L US1084, ROW8547, QEF0540 ####[place] [address] INR Coag (PPP) [Relative time] 1.4 {INR} High 0.9-1.1 [facility] Comment on above: LEVEL OF THERAPY IND [...] MECHANICAL HEART VALVES Performed By: #### L MV3233, OWV3484, IVJ9190 ####[place] [address] PT Coag (PPP) [Time] 16.9 s High 10.1-13.7 [facility] Comment on above: Performed By: #### L LE8398, KOG0472, WNB9011 ####[place] [address] PT/APTT/INRon 07-26-2024 aPTT Coag (PPP) [Time] 38.0 s High 25.5 - 35.9 s [facility] Interpretation and review of laboratory results Abnormal [facility] VASCULAR PROCEDUREon 024 VASCULAR PROCEDURE Normal [facility] VASCULAR PROCEDURE Normal [facility] Vascular ProcedureOrdered By : Max Rico on 07-26-2024 [facility] Work Phone: Vascular Procedureon 024 Radiology Study observation (narrative) [facility] VASCULAR PROCEDUREon 024 VASCULAR PROCEDURE Normal [facility] FLUID CELL COUNTon 4 Basophils/100 WBC (Bld) 0 % Normal [facility] Comment on above: Performed By: #### L DL8519, GPO8445, ZBO5557, WSF2717, UJZ9711, BDU9887 ####[address] [address] Eosinophils/100 WBC (Bld) 0 % Normal [facility] Comment on above: Performed By: #### L EC2616, JML6055, VMK5459, ZSR5279, UZW0397, VLC7503 ####[address] [address] Lymphocytes/100 WBC (Bld) 63 % Normal [facility] Comment on above: Performed By: #### L HO8566, MUC6782, TRV5797, ZBR6533, HAP4878, GAP7524 ####[address] [address] MACROPHAGES 10 % Normal [facility] Comment on above: Performed By: #### L GE9939, DDK4786, DRM2335, GIA8366, DVX1680, PRN1591 ####[facility] [address] [place] [address] MESOTHELIAL 25 % Normal [facility] Comment on above: Performed By: #### L MQ0426, LON2012, IGQ7875, FOW0518, KJL3681, XKL8817 ####[address] [address] Neutrophils/100 WBC (Bld) 2 % Normal [facility] Comment on above: Performed By: #### L QV1725, VSC9883, JNL6181, VPC6701, ECU5181, ZOD7556 ####[facility] [address] [place] [address] PATHOLOGY REVIEW dmp Normal [facility] Comment on above: Result Comment: Soo pearl with manual differential. Aurora Amos DO 07/12/2024 22:59 Performed By: #### L HQ4453, WJC2607, AZN5413, FOH0066, XRR2235, EAE6832 ####[place] [address] PLASMA CELLS 0 % Normal [facility] Comment on above: Performed By: #### L LI6253, BZT0454, AVG1675, GZW9521, NTU9086, IGR0913 ####[place] [address] OTHER 0 Normal [facility] Comment on above: Performed By: #### L NZ1235, FAO8573, SQI5368, BMR5156, EPS6547, NEF5151 ####[place] [address] Albumin, Body Fluidon 2023 Albumin, Body Fluid 474 mg/dL Normal [facility] Comment on above: Result Comment: INTE RPRETIVE INFORMATION: Albumin, Body FluidA reference interval has not been established for body fluidspecimens.This test was developed and its performance characteristicsdetermined by [email or web address]. It has not been cleared orapproved by the U.S. Food and Drug Administration. This test wasperformed in a CLIA-certified laboratory and is intended forclinical purposes.Performed By: [email or web address] [place] [id number] Director: Elvin Diaz MD, PhDCLIA Number: [id number] Performed By: #### L UI8413, MYS5834, AXL7824, RCK9921, IQY1726, RTO7194 ####[place] [address] Source: ascites Normal [facility] Comment on above: Result Comment: Coni ected result;Previously reported as ascites, by V/AUT at 09:20 on 07/09/24 Performed By: #### L NV5944, AKH3134, CED6048, VKD0908, RGO4389, YQP5383 ####[place] [address] CBC w/ Differentialon 2023 Basophil Abs. 0.0 10*3/uL Normal 0.0-0.1 [facility] Comment on above: Performed By: #### L ED8273, AYJ6694 ####[place] [address] Basophils/100 WBC (Bld) 0.7 % Normal 0.0-1.0 [facility] Comment on above: Performed By: #### L HR1192, AEA9790 ####[place] [address] Differential type Auto Normal [facility] Comment on above: Performed By: #### L IF5811, OLC4940 ####[place] [address] Eosinophils (Bld) [#/Vol] 0.2 10*3/uL Normal 0.0-0.5 [facility] Comment on above: Performed By: #### L NM6550, PRE4313 ####[place] [address] Eosinophils/100 WBC (Bld) 4.7 % Normal 0.3-5.0 [facility] Comment on above: Performed By: #### L PL6067, UQG8642 ####[place] [address] Erythrocyte distribution width (RBC) [Ratio] 17.6 % Normal 10.7-18.7 [facility] Comment on above: Performed By: #### L KQ0551, GSJ6789 ####[place] [address] Hematocrit (Bld) [Volume fraction] 29.4 % Low 33.0-51.0 [facility] Comment on above: Performed By: #### L JF8142, RHL8621 ####[place]AB[place] [address] [address] Hemoglobin (Bld) [Mass/Vol] 10.5 g/dL Low 12.0-16.0 [facility] Comment on above: Performed By: #### L WL7816, HFJ2657 ####[place] [address] Lymphocytes (Bld) [#/Vol] 1.1 10*3/uL Normal 1.1-5.0 [facility] Comment on above: Performed By: #### L PN6532, NAO5560 ####[place] [address] Lymphocytes/100 WBC (Bld) 20.8 % Low 24.0-44.0 [facility] Comment on above: Performed By: #### L UA7103, WAL7911 ####[place] [address] MCH (RBC) [Entitic mass] 32.9 pg Normal 26.0-34.0 [facility] Comment on above: Performed By: #### L YE2971, JRS7044 ####[place] [address] MCHC (RBC) [Mass/Vol] 35.7 g/dL Normal 32.0-36.0 [facility] Comment on above: Performed By: #### L RO2001, HDS8172 ####[place] [address] MCV (RBC) [Entitic vol] 92.1 fL Normal 80.0-100.0 [facility] Comment on above: Performed By: #### L KU0244, JJA5235 ####[place] [address] Monocytes (Bld) [#/Vol] 0.7 10*3/uL Normal 0.0-1.4 [facility] Comment on above: Performed By: #### L RF7891, IXJ6348 ####[place] [address] Monocytes/100 WBC (Bld) 14.3 % High 2.1-13.3 [facility] Comment on above: Performed By: #### L RT7506, YVF5925 ####[place] [address] Neutrophils, Abs. 3.1 10*3/uL Normal 1.5-8.5 [facility] Comment on above: Performed By: #### L KL6586, YDA7888 ####[place] [address] Neutrophils/100 WBC (Bld) 59.5 % Normal 35.0-66.0 [facility] Comment on above: Performed By: #### L VM5999, HRN7140 ####[place] [address] Platelet Cnt 63 10*3/uL Low 150-450 [facility] Comment on above: Performed By: #### L QR1723, FQG3317 ####[place] [address] Platelet mean volume (Bld) [Entitic vol] 9.5 fL Normal 6.5-10.0 [facility] Comment on above: Performed By: #### L [id number], [id number] ####[place] [address] RBC (Bld) [#/Vol] 3.20 10*6/uL Low 4.00-5.20 [facility] Comment on above: Performed By: #### L [id number], [id number] ####[place] [address] WBC (Bld) [#/Vol] 5.2 10*3/uL Normal 4.5-11.0 [facility] Comment on above: Performed By: #### L [id number], [id number] ####[place] [address] CBC w/Differentialon 10-15-2 024 Basophils (Bld) [#/Vol] 0.0 10*3/uL 0.0 - 0.1 10*3/uL [facility] Basophils/100 WBC (Bld) 0.7 % 0.0 - 1.0 % [facility] Differential cell count method Nom (Bld) Auto [facility] Eosinophils (Bld) [#/Vol] 0.2 10*3/uL 0.0 - 0.5 10*3/uL [facility] Eosinophils/100 WBC (Bld) 4.7 % 0.3 - 5.0 % [facility] Erythrocyte distribution width (RBC) [Ratio] 17.6 % 10.7 - 18.7 % [facility] [facility] Hematocrit (Bld) [Volume fraction] 29.4 % Low 33.0 - 51.0 % [facility] Hemoglobin (Bld) [Mass/Vol] 10.5 g/dL Low 12.0 - 16.0 g/dL [facility] Interpretation and review of laboratory results Abnormal [facility] Lymphocytes (Bld) [#/Vol] 1.1 10*3/uL 1.1 - 5.0 10*3/uL [facility] Lymphocytes/100 WBC (Bld) 20.8 % Low 24.0 - 44.0 % [facility] MCH (RBC) [Entitic mass] 32.9 pg 26.0 - 34.0 pg [facility] MCHC (RBC) [Mass/Vol] 35.7 g/dL 32.0 - 36.0 g/dL [facility] MCV (RBC) [Entitic vol] 92.1 fL 80.0 - 100.0 fL [facility] Monocytes (Bld) [#/Vol] 0.7 10*3/uL 0.0 - 1.4 10*3/uL [facility] Monocytes/100 WBC (Bld) 14.3 % High 2.1 - 13.3 % [facility] Neutrophils (Bld) [#/Vol] 3.1 10*3/uL 1.5 - 8.5 10*3/uL [facility] Neutrophils/100 WBC (Bld) 59.5 % 35.0 - 66.0 % [facility] Platelet mean volume (Bld) [Entitic vol] 9.5 fL 6.5 - 10.0 fL [facility] Platelets (Bld) [#/Vol] 63 10*3/uL Low 150 - 450 10*3/uL [facility] RBC (Bld) [#/Vol] 3.20 10*6/uL Low 4.00 - 5.2 0 10*6/uL [facility] WBC (Bld) [#/Vol] 5.2 10*3/uL 4.5 - 11.0 10*3/uL [facility] COMPREHENSIVE METABOLIC PANE [place] 07-10-2024 Albumin [Mass/Vol] 3.1 g/dL Low 3.2-5.0 [facility] Comment on above: Performed By: #### L FE6013, [id number] ####[place] [address] Albumin/Globulin [Mass ratio] 1.2 {ratio} Normal [facility] Comment on above: Performed By: #### L IV7497, DBA6520 ####[place] [address] ALP [Catalytic activity/Vol] 84 U/L Normal 42-121 [facility] Comment on above: Performed By: #### L FD2992, UOG1031 ####[place] [address] ALT [Catalytic activity/Vol] 44 U/L Normal 10-60 [facility] Comment on above: Performed By: #### L OX6305, CVG8264 ####[place] [address] Anion gap [Moles/Vol] 6 mmol/L Normal [facility] Comment on above: Performed By: #### L IC1704, ####[place] [address] AST [Catalytic activity/Vol] 69 U/L High 10-42 [facility] Comment on above: Performed By: #### L WD8310, OYG4609 ####[place] [address] B/C 11 Normal 10-20 [facility] Comment on above: Performed By: #### L ZJ1022, FXE6717 ####[facility] [address] [place] [address] Bilirubin.direct [Mass/Vol] 1.6 mg/dL High 0.2-1.0 [facility] Comment on above: Performed By: #### L FF5390, IND6539 ####BABATUNDE Harvey [address] [place] [address] Calcium [Mass/Vol] 9.0 mg/dL Normal 8.5-10.5 [facility] Comment on above: Performed By: #### L GS7843, CNQ5880 ####[place] [address] Chloride [Moles/Vol] 107 mmol/L Normal 101-111 [facility] Comment on above: Performed By: #### L KM7483, PPS6568 ####[place] [address] CO2 [Moles/Vol] 25 mmol/L Normal 21-31 [facility] Comment on above: Performed By: #### L QM7392, TUU8237 ####[place] [address] Creatinine [Mass/Vol] 0.8 mg/dL Normal 0.4-1.0 [facility] Comment on above: Performed By: #### L JS9997, OZJ7946 ####[place] [address] GFR/1.73 sq M.predicted MDRD (S/P/Bld) [Vol rate/Area] 76 mL/min/{1.73_m2} Normal [facility] Comment on above: Result Comment: *The estimated Glomerular Filtration Rate(EGFR) may not be accurate for children under the age of 18 yrs. To estimate the GFR for -Americans multiply the result provided by 1.21.Stage 1 90 mL/min or greaterStage 2 60-89 mL/minStage 3 30-59 mL/minStage 4 15-29 mL/minStage 5 14 mL/min or less Performed By: #### L WO3756, OCG3075 ####BABATUNDE [address] [address] Glucose [Mass/Vol] 114 mg/dL High 70-110 [facility] Comment on above: Performed By: #### L EG8422, [id number] ####BABATUNDE [address] [address] Osmolality [Osmolality] 275 mosm/kg Normal 266-309 [facility] Comment on above: Performed By: #### L FZ8788, IDG2586 ####BABATUNDE [address] [address] Potassium [Moles/Vol] 4.3 mmol/L Normal 3.6-5.0 [facility] Comment on above: Performed By: #### L BS0980, DRP7794 ####BABATUNDE [address] [address] Protein [Mass/Vol] 5.7 g/dL Low 6.1-7.8 [facility] Comment on above: Performed By: #### L XL0959, CDB8631 ####[place] [address] Sodium [Moles/Vol] 138 mmol/L Normal 135-145 [facility] Comment on above: Performed By: #### L LR9045, HFA3365 ####[place] [address] Urea nitrogen [Mass/Vol] 9 mg/dL Normal 2-32 [facility] Comment on above: Performed By: #### L CQ2303, YWW5133 ####[place] [address] Comprehensive Metabolic Pane merritt 07-10-2024 Albumin [Mass/Vol] 3.1 g/dL Low 3.2 - 5.0 g/dL [facility] Albumin/Globulin [Mass ratio] 1.2 {ratio} [facility] ALP [Catalytic activity/Vol] 84 U/L 42 - 121 [iU]/L [facility] ALT [Catalytic activity/Vol] 44 U/L 10 - 60 [iU]/L [facility] Anion gap [Moles/Vol] 6 mmol/L [facility] AST [Catalytic activity/Vol] 69 U/L High 10 - 42 [iU]/L [facility] Bilirubin [Mass/Vol] 1.6 mg/dL High 0.2 - 1 .0 mg/dL [facility] Calcium [Mass/Vol] 9.0 mg/dL 8.5 - 10. 5 mg/dL [facility] Chloride [Moles/Vol] 107 mmol/L 101 - 1 11 mmol/L [facility] CO2 [Moles/Vol] 25 mmol/L 21 - 31 mmol/L [facility] Creatinine [Mass/Vol] 0.8 mg/dL 0.4 - 1.0 mg/dL [facility] GFR/1.73 sq M.predicted MDRD (S/P/Bld) [Vol rate/Area] 76 mL/min/{1.73_m2} [facility] Comment on above: *The estimated Glome rular [...] 114 mg/dL High 70 - 110 mg/dL [facility] Interpretation and review of laboratory results Abnormal [facility] Osmolality Calc [Osmolality] 275 266 - 309 [facility] Potassium [Moles/Vol] 4.3 mmol/L 3.6 - 5.0 mmol/L [facility] Protein [Mass/Vol] 5.7 g/dL Low 6.1 - 7.8 g/dL [facility] Sodium [Moles/Vol] 138 mmol/L 135 - 145 mmol/L [facility] Urea nitrogen [Mass/Vol] 9 mg/dL 2 - 32 mg/dL [facility] Urea nitrogen/Creatinine [Mass ratio] 11 mg/mg 10 - 20 [facility] CBC w/ Differentialon 2023 Basophil Abs. 0.1 10*3/uL Normal 0.0-0.1 [facility] Comment on above: Performed By: #### L ZF7051, IPJ7871 ####[place] [address] Basophils/100 WBC (Bld) 1.0 % Normal 0.0-1.0 [facility] Comment on above: Performed By: #### L OI3106, GOV0596 ####[place] [address] Differential type Auto Normal [facility] Comment on above: Performed By: #### L VL2127, OLX0156 ####[place] [address] Eosinophils (Bld) [#/Vol] 0.4 10*3/uL Normal 0.0-0.5 [facility] Comment on above: Performed By: #### L IX7180, MHI0522 ####[place] [address] Eosinophils/100 WBC (Bld) 5.8 % High 0.3-5.0 [facility] Comment on above: Performed By: #### L YX6517, APY4973 ####[place] [address] Erythrocyte distribution width (RBC) [Ratio] 17.9 % Normal 10.7-18.7 [facility] Comment on above: Performed By: #### L QW1623, QVE5109 ####[place] [address] Hematocrit (Bld) [Volume fraction] 35.0 % Normal 33.0-51.0 [facility] Comment on above: Performed By: #### L DP0406, IHY7217 ####[place] [address] Hemoglobin (Bld) [Mass/Vol] 12.3 g/dL Normal 12.0-16.0 [facility] Comment on above: Performed By: #### L LJ0628, KVS7935 ####[place] [address] Lymphocytes (Bld) [#/Vol] 2.0 10*3/uL Normal 1.1-5.0 [facility] Comment on above: Performed By: #### L PM5796, RRB6368 ####[place] [address] Lymphocytes/100 WBC (Bld) 26.1 % Normal 24.0-44.0 [facility] Comment on above: Performed By: #### L JY6921, VQG9935 ####[place] [address] MCH (RBC) [Entitic mass] 32.6 pg Normal 26.0-34.0 [facility] Comment on above: Performed By: #### L FV8035, ORA4865 ####[place] [address] MCHC (RBC) [Mass/Vol] 35.1 g/dL Normal 32.0-36.0 [facility] Comment on above: Performed By: #### L UX0517, OFB1261 ####[place] [address] MCV (RBC) [Entitic vol] 92.8 fL Normal 80.0-100.0 [facility] Comment on above: Performed By: #### L AD8042, EWV1379 ####[place] [address] Monocytes (Bld) [#/Vol] 0.9 10*3/uL Normal 0.0-1.4 [facility] Comment on above: Performed By: #### L YN7581, SVP4909 ####[place] [address] Monocytes/100 WBC (Bld) 12.1 % Normal 2.1-13.3 [facility] Comment on above: Performed By: #### L II7929, MIR4307 ####[place] [address] Neutrophils, Abs. 4.2 10*3/uL Normal 1.5-8.5 [facility] Comment on above: Performed By: #### L SS7251, SJL9077 ####[place] [address] Neutrophils/100 WBC (Bld) 55.0 % Normal 35.0-66.0 [facility] Comment on above: Performed By: #### L XC1735, UBA2368 ####[place] [address] Platelet Cnt 83 10*3/uL Low 150-450 [facility] Comment on above: Performed By: #### L AO9570, AOC8535 ####[place] [address] Platelet mean volume (Bld) [Entitic vol] 9.6 fL Normal 6.5-10.0 [facility] Comment on above: Performed By: #### L WB6408, WVG1338 ####[place] [address] RBC (Bld) [#/Vol] 3.77 10*6/uL Low 4.00-5.20 [facility] Comment on above: Performed By: #### L TX0570, TJO6761 ####[place] [address] WBC (Bld) [#/Vol] 7.6 10*3/uL Normal 4.5-11.0 [facility] Comment on above: Performed By: #### L UU5215, QHL8674 ####[place] [address] CBC w/Differentialon -- 024 Basophils (Bld) [#/Vol] 0.1 10*3/uL 0.0 - 0.1 10*3/uL [facility] Basophils/100 WBC (Bld) 1.0 % 0.0 - 1.0 % [facility] Differential cell count method Nom (Bld) Auto [facility] Eosinophils (Bld) [#/Vol] 0.4 10*3/uL 0.0 - 0.5 10*3/uL [facility] Eosinophils/100 WBC (Bld) 5.8 % High 0.3 - 5.0 % [facility] Erythrocyte distribution width (RBC) [Ratio] 17.9 % 10.7 - 18.7 % [facility] Hematocrit (Bld) [Volume fraction] 35.0 % 33.0 - 51.0 % [facility] Hemoglobin (Bld) [Mass/Vol] 12.3 g/dL 12.0 - 16.0 g/dL [facility] Interpretation and review of laboratory results Abnormal [facility] Lymphocytes (Bld) [#/Vol] 2.0 10*3/uL 1.1 - 5.0 10*3/uL [facility] Lymphocytes/100 WBC (Bld) 26.1 % 24.0 - 44.0 % [facility] MCH (RBC) [Entitic mass] 32.6 pg 26.0 - 34.0 pg [facility] MCHC (RBC) [Mass/Vol] 35.1 g/dL 32.0 - 36.0 g/dL [facility] MCV (RBC) [Entitic vol] 92.8 fL 80.0 - 100.0 fL [facility] Monocytes (Bld) [#/Vol] 0.9 10*3/uL 0.0 - 1.4 10*3/uL [facility] Monocytes/100 WBC (Bld) 12.1 % 2.1 - 13.3 % [facility] Neutrophils (Bld) [#/Vol] 4.2 10*3/uL 1.5 - 8.5 10*3/uL [facility] Neutrophils/100 WBC (Bld) 55.0 % 35.0 - 66.0 % [facility] Platelet mean volume (Bld) [Entitic vol] 9.6 fL 6.5 - 10.0 fL [facility] Platelets (Bld) [#/Vol] 83 10*3/uL Low 150 - 450 10*3/uL [facility] RBC (Bld) [#/Vol] 3.77 10*6/uL Low 4.00 - 5.2 0 10*6/uL [facility] WBC (Bld) [#/Vol] 7.6 10*3/uL 4.5 - 11.0 10*3/uL [facility] COMPREHENSIVE METABOLIC PANE [place] 07-09-2024 Albumin [Mass/Vol] 3.1 g/dL Low 3.2-5.0 [facility] Comment on above: Performed By: #### L SY5326, LMH9881 ####[place] [address] Albumin/Globulin [Mass ratio] 0.8 {ratio} Normal [facility] Comment on above: Performed By: #### L EJ7719, BRE0151 ####[place] [address] ALP [Catalytic activity/Vol] 96 U/L Normal 42-121 [facility] Comment on above: Performed By: #### L CF2477, FAL9850 ####[place] [address] ALT [Catalytic activity/Vol] 54 U/L Normal 10-60 [facility] Comment on above: Performed By: #### L AW3827, RLJ9590 ####[place] [address] Anion gap [Moles/Vol] 6 mmol/L Normal [facility] Comment on above: Performed By: #### L RM1967, EDX2522 ####[place] [address] AST [Catalytic activity/Vol] 89 U/L High 10-42 [facility] Comment on above: Performed By: #### L GY1681, JZN2589 ####[place] [address] B/C 14 Normal 10-20 [facility] Comment on above: Performed By: #### L WM2793, EOQ7713 ####[place] [address] Bilirubin.direct [Mass/Vol] 1.9 mg/dL High 0.2-1.0 [facility] Comment on above: Performed By: #### L NB7229, CZQ7035 ####BABATUNDE [address] [address] Calcium [Mass/Vol] 9.2 mg/dL Normal 8.5-10.5 [facility] Comment on above: Performed By: #### L MO0382, FNW8761 ####[place] [address] Chloride [Moles/Vol] 109 mmol/L Normal 101-111 [facility] Comment on above: Performed By: #### L QG5084, HZK6627 ####[place] [address] CO2 [Moles/Vol] 21 mmol/L Normal 21-31 [facility] Comment on above: Performed By: #### L PU1356, OBV5671 ####[place] [address] Creatinine [Mass/Vol] 0.9 mg/dL Normal 0.4-1.0 [facility] Comment on above: Performed By: #### L AX3404, UXP8314 ####[place] [address] GFR/1.73 sq M.predicted MDRD (S/P/Bld) [Vol rate/Area] 66 mL/min/{1.73_m2} Normal [facility] Comment on above: Result Comment: *The estimated Glomerular Filtration Rate(EGFR) may not be accurate for children under the age of 18 yrs. To estimate the GFR for -Americans multiply the result provided by 1.21.Stage 1 90 mL/min or greaterStage 2 60-89 mL/minStage 3 30-59 mL/minStage 4 15-29 mL/minStage 5 14 mL/min or less Performed By: #### L VJ5599, KPJ2856 ####BABATUNDE [address] [address] Glucose [Mass/Vol] 77 mg/dL Normal 70-110 [facility] Comment on above: Performed By: #### L VR1209, KFQ0427 ####BABATUNDE Harvey [address] [place] [address] Osmolality [Osmolality] 271 mosm/kg Normal 266-309 [facility] Comment on above: Performed By: #### L GL3133, DZV7815 ####BABATUNDE Harvey [address] [place] [address] Potassium [Moles/Vol] 4.2 mmol/L Normal 3.6-5.0 [facility] Comment on above: Performed By: #### L BN2686, YIV3548 ####BABTAUNDE Harvey [address] [place] [address] Protein [Mass/Vol] 7.0 g/dL Normal 6.1-7.8 [facility] Comment on above: Performed By: #### L VA3308, HPO7744 ####BABATUNDE [address] [address] Sodium [Moles/Vol] 136 mmol/L Normal 135-145 [facility] Comment on above: Performed By: #### L ST4619, VRT9479 ####BABATUNDE Harvey [address] [place] [address] Urea nitrogen [Mass/Vol] 13 mg/dL Normal 2-32 [facility] Comment on above: Performed By: #### L IE1743, FRE9475 ####BABATUNDE [facility] [place] [address] Comprehensive Metabolic Pane merritt 07-09-2024 Albumin [Mass/Vol] 3.1 g/dL Low 3.2 - 5.0 g/dL [facility] Albumin/Globulin [Mass ratio] 0.8 {ratio} [facility] ALP [Catalytic activity/Vol] 96 U/L 42 - 121 [iU]/L [facility] ALT [Catalytic activity/Vol] 54 U/L 10 - 60 [iU]/L [facility] Anion gap [Moles/Vol] 6 mmol/L [facility] AST [Catalytic activity/Vol] 89 U/L High 10 - 42 [iU]/L [facility] Bilirubin [Mass/Vol] 1.9 mg/dL High 0.2 - 1 .0 mg/dL [facility] Calcium [Mass/Vol] 9.2 mg/dL 8.5 - 10. 5 mg/dL [facility] Chloride [Moles/Vol] 109 mmol/L 101 - 1 11 mmol/L [facility] CO2 [Moles/Vol] 21 mmol/L 21 - 31 mmol/L [facility] Creatinine [Mass/Vol] 0.9 mg/dL 0.4 - 1.0 mg/dL [facility] GFR/1.73 sq M.predicted MDRD (S/P/Bld) [Vol rate/Area] 66 mL/min/{1.73_m2} [facility] Comment on above: *The estimated Glome rular [...] [Mass/Vol] 77 mg/dL 70 - 110 mg/dL [facility] Interpretation and review of laboratory results Abnormal [facility] Osmolality Calc [Osmolality] 271 266 - 309 [facility] Potassium [Moles/Vol] 4.2 mmol/L 3.6 - 5.0 mmol/L [facility] Protein [Mass/Vol] 7.0 g/dL 6.1 - 7.8 g/dL [facility] Sodium [Moles/Vol] 136 mmol/L 135 - 145 mmol/L [facility] Urea nitrogen [Mass/Vol] 13 mg/dL 2 - 32 mg/dL [facility] Urea nitrogen/Creatinine [Mass ratio] 14 mg/mg - [facility] FLUID CELL COUNTon 4 Character (U) Clear Normal [facility] Comment on above: Performed By: #### L MP8976, YHF6089, ZTC8008, NHC5405, HYO3492, IYG1901 ####BABS[address] [address] Color (U) Yellow [facility] Comment on above: Performed By: #### L OW4881, MZH1227, XII0601, MQM7559, JPW5453, VDG6481 ####[facility] [address] [address] FLD COMMENT see below [facility] Comment on above: Result Comment: Refe rence ranges & other method performance specifications have not beenestablished for this body fluid type. The test result must be integratedinto the clinical context for interpretation. Performed By: #### L CW0480, BGI5942, RFO0342, GCS8894, QKF1953, XAM5223 ####BABATUNDE [address] [address] RBC 340 uL [facility] Comment on above: Performed By: #### L WA7107, ERA8591, RAC8848, BIP7379, SGT9444, ZKA6702 ####[place] [address] SOURCE [facility] Comment on above: Performed By: #### L YH6354, XUS8257, XOI3865, UMW0805, UHK1177, FWS8639 ####BABATUNDE [id number] [place] [address] TOTAL NUC. CELLS 124 uL [facility] Comment on above: Result Comment: RESU LTS OF COUNT MAY BE INACCURATE IF SPECIMEN IS PARTIALLYCLOTTED OR EXHIBIT CELL CLUMPING. Performed By: #### L CJ4851, PKD7915, OLX8127, WYS3565, MSX5556, JDW5373 ####[facility] [place] [address] TUBE NUMBER Syringe [facility] Comment on above: Performed By: #### L ZK3502, POW7674, HUR1326, GBA3743, UEO8068, SBZ5763 ####[facility] [place] [address] VOLUME 50.0 [facility] Comment on above: Performed By: #### L OJ7138, XEH8678, OCR2548, TDB5827, DXS8749, UHO5249 ####[place] [address] FLUID CULTUREon 07-09-2024 FLUID CULTURE Bacteria identified in Body fluid by Culture FLUID CULTURE: No Growth - Preliminary Microscopic observation [Identifier] in Specimen by Gram stain GRAM STAIN SMEAR: No WBC'S. No organisms seen. Normal [facility] Comment on above: Performed By: #### L TR3303 ####[place] [address] GLUCOSE, FLUIDon 07-09-2024 GLUCOSE, FLUID 110 mg/dL Normal [facility] Comment on above: Result Comment: Refe rence ranges & other method performance specifications have not beenestablished for this body fluid type. The test result must be integratedinto the clinical context for interpretation. Performed By: #### L ZX3425, NIV7739, USL9751, WLM4773, GOJ5257, ALU7479 ####[place] [address] Glucose Body Fluidon 024 Glucose (Body fld) [Mass/Vol] 110 mg/dL [facility] Comment on above: Reference ranges & o ther method performance specifications have not been established for this body fluid type. The test result must be integrated into the clinical context for interpretation. LDH, FLUIDon 07-09-2024 LDH FLUID 45 [iU]/L Low 60-160 [facility] Comment on above: Performed By: #### L JY9183, PDX5208, GYU4680, KQW7638, KVC8183, ZTU1200 ####[facility] [address] [place] [address] LDH, Fluidon 07-09-2024 Interpretation and review of laboratory results Abnormal [facility] LDH (Body fld) [Catalytic activity/Vol] 45 [iU]/L Low 60 - 160 [iU]/L [facility] NON CIGAR WRAPPER TENDER AUTOMATIC CASESon 07-09-2024 NON CIGAR WRAPPER TENDER AUTOMATIC CASES Normal [facility] Comment on above: Performed By: #### L DR0154 ####[facility] [place] [address] No Panel Informationon 07-09 [facility] PH, FLUIDon 07-09-2024 PH, FLUID 7.1 Normal [facility] Comment on above: Performed By: #### L ZI9814, KID0677, PBP5816, BPR4518, OJV6804, JUS9033 ####[facility] [place] [address] PROTEIN, FLUIDon 07-09-2024 PROTEIN, FLUID 3.0 g/dL Normal [facility] Comment on above: Result Comment: Refe rence ranges & other method performance specifications have not beenestablished for this body fluid type. The test result must be integratedinto the clinical context for interpretation. Performed By: #### L MV1399, KTP6243, KFK4257, ZDP0061, BSA4188, PSR7670 ####[id number] [place] [address] SOURCE Ascites Normal [facility] Comment on above: Performed By: #### L QN3535, YTN6721, VVO7552, ZYH6083, LIV1478, ACJ2007 ####[place] [address] Ph Body Fluidon 07-09-2024 pH (Body fld) 7.1 [pH] [facility] Specimen source Nom (Body fld) Asc[facility] Protein Body Fluidon 024 Protein (Body fld) [Mass/Vol] 3.0 g/dL [facility] Comment on above: Reference ranges & o ther method performance specifications have not been established for this body fluid type. The test result must be integrated into the clinical context for interpretation. Specimen source Nom (Body fld) [facility] Rapid Tox Screen, Urine (KDM C)on 07-09-2024 Amphetamine cutoff Screen (U) [Mass/Vol] Negative Cutoff: 1000 ng/mL [facility] Barbiturates cutoff Screen (U) [Mass/Vol] Negative Cutoff: 200 ng/mL [facility] Benzodiazepines cutoff Screen (U) [Mass/Vol] Negative Cutoff: 200 ng/mL [facility] Buprenorphine [Mass/Vol] Negative Cutoff: 5 ng/mL [facility] Comment on above: Note, cutoff changed from 10 to 5 ng/mL 08/10/18. Cocaine cutoff Screen (U) [Mass/Vol] Negative Cutoff: 300 ng/mL [facility] fentaNYL Screen Ql (U) Negative Cutof f: 5 ng/mL [facility] Comment on above: Note, cutoff changed from 200 to 5 ng/mL 04/29/22. Interpretation and review of laboratory results Abnormal [facility] Methadone cutoff Screen (U) [Mass/Vol] Negative Cutoff: 300 ng/mL [facility] Opiates cutoff Screen (U) [Mass/Vol] Positive Abnormal Cutoff: 300 ng/mL [facility] oxyCODONE cutoff Screen (U) [Mass/Vol] Negative Cutoff: 300 ng/mL [facility] Phencyclidine cutoff Screen (U) [Mass/Vol] Negative Cutoff: 25 ng/mL [facility] Propoxyphene cutoff Screen (U) [Mass/Vol] Negative Cutoff: 300 ng/mL [facility] Comment on above: IMPORTANT This is a screening method. The test results are to be used for medical purposes only. Many common compounds can cause false positive results. Confirmation of a positive result is available upon request. Tetrahydrocannabinol cutoff Screen (U) [Mass/Vol] Positive Abnormal Cutoff: 50 ng/mL [facility] TOX SCREEN, RAPID, URon 10-1 AMPHETAMINES, UR Negative Normal Cutoff: 1000 [facility] Comment on above: Performed By: #### L [id number] ####[place] [address] BARBITURATES, UR Negative Normal Cutoff: 200 [facility] Comment on above: Performed By: #### L [id number] ####[place] [address] BENZODIAZEPINES, UR Negative Normal Cutoff: 200 [facility] Comment on above: Performed By: #### L SG0815 ####[place] [address] BUPRENORPHINE, UR Negative Normal Cutoff: 5 [facility] Comment on above: Result Comment: Note , cutoff changed from 10 to 5 ng/mL 08/10/18. Performed By: #### L [id number] ####[place] [address] CANNABINOID, UR Positive Abnormal Cutoff: 50 [facility] Comment on above: Performed By: #### L EU4308 ####[place] [address] COCAINE, UR Negative Normal Cutoff: 300 [facility] Comment on above: Performed By: #### L [id number] ####[place] [address] FENTANYL, UR Negative Normal Cutoff: 5 [facility] Comment on above: Result Comment: Note , cutoff changed from 200 to 5 ng/mL 04/29/22. Performed By: #### L HL6445 ####[place] [address] METHADONE, UR Negative Normal Cutoff: 300 [facility] Comment on above: Performed By: #### L XN1700 ####[place] [address] OPIATES, UR Positive Abnormal Cutoff: 300 [facility] Comment on above: Performed By: #### L WP4171 ####[place] [address] OXYCODONE, UR Negative Normal Cutoff: 300 [facility] Comment on above: Performed By: #### L CE9435 ####[place] [address] PHENCYCLIDINE, UR Negative Normal Cutoff: 25 [facility] Comment on above: Performed By: #### L JZ9172 ####[place] [address] PROPOXYPHENE, UR Negative Normal Cutoff: 300 [facility] Comment on above: Result Comment: IM PORTANTThis is a screening method. The test results are to be usedfor medical purposes only. Many common compounds can cause false positiveresults. Confirmation of a positive result is available upon request. Performed By: #### L QL5613 ####[facility] [place] [address] VASCULAR PROCEDUREon VASCULAR PROCEDURE Normal [facility] Vascular Procedureon 024 : Technically successful ultrasound-guided therapeutic paracentesis with aspiration of 4400 cc of cloudy yellow fluid. SIGNED: Ginger Milton MD 07/09/2024 5:10 PM [facility] INTERVENTIONAL RADIOLOGY REPORT PATIENT: Carolina Hightower DATE [...] provided using 1% buffered lidocaine. A 6.5 Nauruan non-locking Resolve pigtail catheter was advanced into the peritoneal space. 4400 cc of cloudy yellow fluid were obtained. The catheter was removed intact. A dry sterile dressing was applied to the puncture site. The patient tolerated the procedure well and there were no immediate complications. The patient was given 37.5 g IV albumin. FINDINGS: Moderate amount of free peritoneal fluid/ascites. [facility] Radiology Study observation (narrative) [facility] C. trachomatis+N. gonorrhoea e DNA PHYLLIS+probe Ql (Unsp spec)on 07-08-2024 C. trachomatis rRNA PHYLLIS+probe Ql (Unsp spec) Negative Normal Negative for Chlamydia trachomatis by amplificaton [facility] Comment on above: Order Comment: Speci men Type: MICROBIAL ISOLATE Ordering Facility: [facility] Address: [address] [place] [address], [place] [id number] Performed By: #### T RVAMP, 78141-2 #### [facility] CLIA [id number] [facility] [place] [address] [place] N. gonorrhoeae rRNA PHYLLIS+probe Ql (Unsp spec) Negative Normal Negative for Neisseria gonorrhoeae by amplification [facility] Comment on above: Order Comment: Speci men Type: MICROBIAL ISOLATE Ordering Facility: [facility] Address: [address] [place] [address], [place] [address] Performed By: #### T RVAMP, 94482-9 #### [facility] CLIA [id number] [facility] [place] [address] [place] CBC w/ Differentialon 2023 Basophil Abs. 0.1 10*3/uL Normal 0.0-0.1 [facility] Comment on above: Order Comment: Yahaira bradley has been rescheduled by at 07/08/2024 18:16 Reason: miss Performed By: #### L XS2174, IBH4507, TEC2771 ####BABATUNDE Harvey [address] [place] [address] Basophils/100 WBC (Bld) 1.1 % High 0.0-1.0 [facility] Comment on above: Order Comment: Yahaira bradley has been rescheduled by SW at 07/08/2024 18:16 Reason: miss Performed By: #### L OR0787, WXF8767, TEO7552 ####[place] [address] Differential type Auto Normal [facility] Comment on above: Order Comment: Yahaira bradley has been rescheduled by SW at 07/08/2024 18:16 Reason: miss Performed By: #### L UU5757, CYP1874, BNK7993 ####BABATUNDE Harvey [address] [place] [address] Eosinophils (Bld) [#/Vol] 0.3 10*3/uL Normal 0.0-0.5 [facility] Comment on above: Order Comment: Yahaira bradley has been rescheduled by SW at 07/08/2024 18:16 Reason: miss Performed By: #### L BS6138, DRM5578, EVU4774 ####BABATUNDE [address] [address] Eosinophils/100 WBC (Bld) 4.4 % Normal 0.3-5.0 [facility] Comment on above: Order Comment: Yahaira bradley has been rescheduled by at 07/08/2024 18:16 Reason: miss Performed By: #### L QF0899, UTM4289, MIW6089 ####[place] [address] Erythrocyte distribution width (RBC) [Ratio] 17.8 % Normal 10.7-18.7 [facility] Comment on above: Order Comment: Yahaira bradley has been rescheduled by at 07/08/2024 18:16 Reason: miss Performed By: #### L SE2034, STU8301, HEO8661 ####[place] [address] Hematocrit (Bld) [Volume fraction] 33.4 % Normal 33.0-51.0 [facility] Comment on above: Order Comment: Yahaira bradley has been rescheduled by at 07/08/2024 18:16 Reason: miss Performed By: #### L DO3925, TYI3133, AYK7840 ####[place] [address] Hemoglobin (Bld) [Mass/Vol] 11.9 g/dL Low 12.0-16.0 [facility] Comment on above: Order Comment: Yahaira bradley has been rescheduled by SW at 07/08/2024 18:16 Reason: miss Performed By: #### L JD7005, MCX9181, FBW1122 ####BABATUNDE [address] [address] Lymphocytes (Bld) [#/Vol] 1.6 10*3/uL Normal 1.1-5.0 [facility] Comment on above: Order Comment: Yahaira bradley has been rescheduled by at 07/08/2024 18:16 Reason: miss Performed By: #### L SL6340, URC7415, MNC5885 ####[place] [address] Lymphocytes/100 WBC (Bld) 22.9 % Low 24.0-44.0 [facility] Comment on above: Order Comment: Yahaira bradley has been rescheduled by at 07/08/2024 18:16 Reason: miss Performed By: #### L ZA9514, WCZ8664, NIH5729 ####[place] [address] MCH (RBC) [Entitic mass] 32.7 pg Normal 26.0-34.0 [facility] Comment on above: Order Comment: Yahaira bradley has been rescheduled by SW at 07/08/2024 18:16 Reason: miss Performed By: #### L ZF0530, NCJ1884, VPL5641 ####[place] [address] MCHC (RBC) [Mass/Vol] 35.6 g/dL Normal 32.0-36.0 [facility] Comment on above: Order Comment: Yahaira bradley has been rescheduled by SW at 07/08/2024 18:16 Reason: miss Performed By: #### L DT9159, DJC6422, XYU7870 ####[place] [address] MCV (RBC) [Entitic vol] 91.8 fL Normal 80.0-100.0 [facility] Comment on above: Order Comment: Yahaira bradley has been rescheduled by at 07/08/2024 18:16 Reason: miss Performed By: #### L DW9709, HWP3996, LAS6082 ####[place] [address] MDW 18.1 Normal 0.0-20.0 [facility] Comment on above: Order Comment: Yahaira bradley has been rescheduled by at 07/08/2024 18:16 Reason: miss Performed By: #### L BY4582, CHT9691, HWD2181 ####[place] [address] Monocytes (Bld) [#/Vol] 0.8 10*3/uL Normal 0.0-1.4 [facility] Comment on above: Order Comment: Yahaira bradley has been rescheduled by SW at 07/08/2024 18:16 Reason: miss Performed By: #### L VM9960, WDB7635, TUZ8594 ####BABATUNDE [address] [address] Monocytes/100 WBC (Bld) 11.0 % Normal 2.1-13.3 [facility] Comment on above: Order Comment: Yahaira bradley has been rescheduled by SW at 07/08/2024 18:16 Reason: miss Performed By: #### L RQ6660, PNY9744, TQY6518 ####[place] [address] Neutrophils, Abs. 4.2 10*3/uL Normal 1.5-8.5 [facility] Comment on above: Order Comment: Yahaira bradley has been rescheduled by SW at 07/08/2024 18:16 Reason: miss Performed By: #### L IS1268, KVU2111, SKV0803 ####BABATUN[place] [address] [address] Neutrophils/100 WBC (Bld) 60.6 % Normal 35.0-66.0 [facility] Comment on above: Order Comment: Yahaira bradley has been rescheduled by SW at 07/08/2024 18:16 Reason: miss Performed By: #### L JS8390, FCM5042, DTD1758 ####BABATUN[place] [address] [address] Platelet Cnt 76 10*3/uL Low 150-450 [facility] Comment on above: Order Comment: Yahaira bradley has been rescheduled by SW at 07/08/2024 18:16 Reason: miss Performed By: #### L BD7621, ZJE6583, GEZ5878 ####BABATUNDE [address] [address] Platelet mean volume (Bld) [Entitic vol] 9.4 fL Normal 6.5-10.0 [facility] Comment on above: Order Comment: Yahaira bradley has been rescheduled by at 07/08/2024 18:16 Reason: miss Performed By: #### L HO2547, DJN2715, QZB3528 ####[facility] [id number] [place] [address] RBC (Bld) [#/Vol] 3.63 10*6/uL Low 4.00-5.20 [facility] Comment on above: Order Comment: Yahaira bradley has been rescheduled by SW at 07/08/2024 18:16 Reason: miss Performed By: #### L TM3358, AMC1761, JBL2497 ####[place] [address] WBC (Bld) [#/Vol] 6.9 10*3/uL Normal 4.5-11.0 [facility] Comment on above: Order Comment: Yahaira bradley has been rescheduled by at 07/08/2024 18:16 Reason: miss Performed By: #### L TZ1756, SCQ8306, LSO5980 ####[place] [address] CBC w/Differentialon 024 Basophils (Bld) [#/Vol] 0.1 10*3/uL 0.0 - 0.1 10*3/uL [facility] Basophils/100 WBC (Bld) 1.1 % High 0.0 - 1.0 % [facility] Differential cell count method Nom (Bld) Auto [facility] Eosinophils (Bld) [#/Vol] 0.3 10*3/uL 0.0 - 0.5 10*3/uL [facility] Eosinophils/100 WBC (Bld) 4.4 % 0.3 - 5.0 % [facility] Erythrocyte distribution width (RBC) [Ratio] 17.8 % 10.7 - 18.7 % [facility] Hematocrit (Bld) [Volume fraction] 33.4 % 33.0 - 51.0 % [facility] Hemoglobin (Bld) [Mass/Vol] 11.9 g/dL Low 12.0 - 16.0 g/dL [facility] Interpretation and review of laboratory results Abnormal [facility] Lymphocytes (Bld) [#/Vol] 1.6 10*3/uL 1.1 - 5.0 10*3/uL [facility] Lymphocytes/100 WBC (Bld) 22.9 % Low 24.0 - 44.0 % [facility] MCH (RBC) [Entitic mass] 32.7 pg 26.0 - 34.0 pg [facility] MCHC (RBC) [Mass/Vol] 35.6 g/dL 32.0 - 36.0 g/dL [facility] MCV (RBC) [Entitic vol] 91.8 fL 80.0 - 100.0 fL [facility] Monocyte distribution width Auto (Bld) [Entitic vol] 18.1 0.0 - 20.0 [facility] Monocytes (Bld) [#/Vol] 0.8 10*3/uL 0.0 - 1.4 10*3/uL [facility] Monocytes/100 WBC (Bld) 11.0 % 2.1 - 13.3 % [facility] Neutrophils (Bld) [#/Vol] 4.2 10*3/uL 1.5 - 8.5 10*3/uL [facility] Neutrophils/100 WBC (Bld) 60.6 % 35.0 - 66.0 % [facility] Platelet mean volume (Bld) [Entitic vol] 9.4 fL 6.5 - 10.0 fL [facility] Platelets (Bld) [#/Vol] 76 10*3/uL Low 150 - 450 10*3/uL [facility] RBC (Bld) [#/Vol] 3.63 10*6/uL Low 4.00 - 5.2 0 10*6/uL [facility] WBC (Bld) [#/Vol] 6.9 10*3/uL 4.5 - 11.0 10*3/uL [facility] Collection has been rescheduled by SHELL at 07/08/2024 18:16 Reason: miss [facility] COMPREHENSIVE METABOLIC PANE [place] 07-08-2024 Albumin [Mass/Vol] 3.0 g/dL Low 3.2-5.0 [facility] Comment on above: Order Comment: Yahaira ctlelo has been rescheduled by SW at 07/08/2024 18:16 Reason: miss Performed By: #### L MP1347, DTA5994, XUO0461 ####[place] [address] Albumin/Globulin [Mass ratio] 0.9 {ratio} Normal [facility] Comment on above: Order Comment: Yahaira ction has been rescheduled by SW at 07/08/2024 18:16 Reason: miss Performed By: #### L MD1895, SAN2800, YTO2369 ####[place] [address] ALP [Catalytic activity/Vol] 108 U/L Normal 42-121 [facility] Comment on above: Order Comment: Yahaira ction has been rescheduled by SW at 07/08/2024 18:16 Reason: miss Performed By: #### L AU1859, CUS8333, RVD0072 ####[place] [address] ALT [Catalytic activity/Vol] 53 U/L Normal 10-60 [facility] Comment on above: Order Comment: Yahaira ctlelo has been rescheduled by at 07/08/2024 18:16 Reason: miss Performed By: #### L UF3920, VXU1718, QTJ2647 ####[place] [address] Anion gap [Moles/Vol] 3 mmol/L Normal [facility] Comment on above: Order Comment: Yahaira ction has been rescheduled by at 07/08/2024 18:16 Reason: miss Performed By: #### L CX7208, GKY4585, MBP3814 ####[place] [address] AST [Catalytic activity/Vol] 78 U/L High 10-42 [facility] Comment on above: Order Comment: Yahaira ction has been rescheduled by at 07/08/2024 18:16 Reason: miss Performed By: #### L AY5905, RWD5680, UDT5696 ####[place] [address] B/C 16 Normal 10-20 [facility] Comment on above: Order Comment: Yahaira ctlelo has been rescheduled by SW at 07/08/2024 18:16 Reason: miss Performed By: #### L HM9192, CAZ4959, PLO1997 ####[place] [address] Bilirubin.direct [Mass/Vol] 1.7 mg/dL High 0.2-1.0 [facility] Comment on above: Order Comment: Yahaira ction has been rescheduled by SW at 07/08/2024 18:16 Reason: miss Performed By: #### L BL9724, MMI9849, ELC7378 ####[place] [address] Calcium [Mass/Vol] 9.3 mg/dL Normal 8.5-10.5 [facility] Comment on above: Order Comment: Yahaira ction has been rescheduled by at 07/08/2024 18:16 Reason: miss Performed By: #### L NA6725, ZWW6327, KKT2976 ####[place] [address] Chloride [Moles/Vol] 110 mmol/L Normal 101-111 [facility] Comment on above: Order Comment: Yahaira ction has been rescheduled by at 07/08/2024 18:16 Reason: miss Performed By: #### L KM0295, XRQ3345, NPD8264 ####[place] [address] CO2 [Moles/Vol] 24 mmol/L Normal 21-31 [facility] Comment on above: Order Comment: Yahaira ction has been rescheduled by at 07/08/2024 18:16 Reason: miss Performed By: #### L QJ1481, HMQ7491, VWN0263 ####[place] [address] Creatinine [Mass/Vol] 0.8 mg/dL Normal 0.4-1.0 [facility] Comment on above: Order Comment: Yahaira bradley has been rescheduled by at 07/08/2024 18:16 Reason: miss Performed By: #### L JJ9061, SGA2143, NDP2824 ####[place] [address] GFR/1.73 sq M.predicted MDRD (S/P/Bld) [Vol rate/Area] 76 mL/min/{1.73_m2} Normal [facility] Comment on above: Order Comment: Yahaira [...] mL/min or less Performed By: #### L NL6906, LMM8642, XNI4990 ####[place] [address] Glucose [Mass/Vol] 94 mg/dL Normal 70-110 [facility] Comment on above: Order Comment: Yahaira bradley has been rescheduled by at 07/08/2024 18:16 Reason: miss Performed By: #### L IO9549, BBY1594, VIF6297 ####BABATUNDE [address] [address] Osmolality [Osmolality] 274 mosm/kg Normal 266-309 [facility] Comment on above: Order Comment: Yahaira bradley has been rescheduled by at 07/08/2024 18:16 Reason: miss Performed By: #### L PY8214, ADF0435, MAT4009 ####BABATUNDE [address] [address] Potassium [Moles/Vol] 4.2 mmol/L Normal 3.6-5.0 [facility] Comment on above: Order Comment: Yahaira bradley has been rescheduled by SW at 07/08/2024 18:16 Reason: miss Performed By: #### L DY3730, HXM8989, ERU8466 ####BABATUNDE [address] [address] Protein [Mass/Vol] 6.4 g/dL Normal 6.1-7.8 [facility] Comment on above: Order Comment: Yahaira bradley has been rescheduled by SW at 07/08/2024 18:16 Reason: miss Performed By: #### L AT9228, HDV8848, VEU6393 ####BABATUNDE Harvey [address] [place] [address] Sodium [Moles/Vol] 137 mmol/L Normal 135-145 [facility] Comment on above: Order Comment: Yahaira bradley has been rescheduled by SW at 07/08/2024 18:16 Reason: miss Performed By: #### L UQ5376, DLV0863, XTZ6457 ####[place] [address] Urea nitrogen [Mass/Vol] 13 mg/dL Normal 2-32 [facility] Comment on above: Order Comment: Yahaira bradley has been rescheduled by at 07/08/2024 18:16 Reason: miss Performed By: #### L ZL0335, VLM9904, AWG5705 ####BABATUNDE Harvey [address] [place] [address] Comprehensive Metabolic Pane merritt 07-08-2024 Albumin [Mass/Vol] 3.0 g/dL Low 3.2 - 5.0 g/dL [facility] Albumin/Globulin [Mass ratio] 0.9 {ratio} [facility] ALP [Catalytic activity/Vol] 108 U/L 42 - 121 [iU]/L [facility] ALT [Catalytic activity/Vol] 53 U/L 10 - 60 [iU]/L [facility] Anion gap [Moles/Vol] 3 mmol/L [facility] AST [Catalytic activity/Vol] 78 U/L High 10 - 42 [iU]/L [facility] Bilirubin [Mass/Vol] 1.7 mg/dL High 0.2 - 1 .0 mg/dL [facility] Calcium [Mass/Vol] 9.3 mg/dL 8.5 - 10. 5 mg/dL [facility] Chloride [Moles/Vol] 110 mmol/L 101 - 1 11 mmol/L [facility] CO2 [Moles/Vol] 24 mmol/L 21 - 31 mmol/L [facility] Creatinine [Mass/Vol] 0.8 mg/dL 0.4 - 1.0 mg/dL [facility] GFR/1.73 sq M.predicted MDRD (S/P/Bld) [Vol rate/Area] 76 mL/min/{1.73_m2} [facility] Comment on above: *The estimated Glome rular [...] [Mass/Vol] 94 mg/dL 70 - 110 mg/dL [facility] Interpretation and review of laboratory results Abnormal [facility] Osmolality Calc [Osmolality] 274 266 - 309 [facility] Potassium [Moles/Vol] 4.2 mmol/L 3.6 - 5.0 mmol/L [facility] Protein [Mass/Vol] 6.4 g/dL 6.1 - 7.8 g/dL [facility] Sodium [Moles/Vol] 137 mmol/L 135 - 145 mmol/L [facility] Urea nitrogen [Mass/Vol] 13 mg/dL 2 - 32 mg/dL [facility] Urea nitrogen/Creatinine [Mass ratio] 16 mg/mg 10 - [facility] Collection has been rescheduled by SHELL at 07/08/2024 18:16 Reason: miss [facility] PT AND APTTon 07-08-2024 aPTT Coag (Bld) [Time] 37.3 s High 25.5-35.9 [facility] Comment on above: Order Comment: Yahaira bradley has been rescheduled by at 07/08/2024 18:16 Reason: miss Performed By: #### L OQ5530, BHS5654, UCS4824 ####[facility] [address] [place] [address] INR Coag (PPP) [Relative time] 1.4 {INR} High 0.9-1.1 [facility] Comment on above: LEVEL OF THERAPY IND [...] MECH[employer] HEART [employer]VES Performed By: #### L IN3159, WUF7122, AQW4915 ####[address] [address] PT Coag (PPP) [Time] 16.4 s High 10.1-13.7 [facility] Comment on above: Order Comment: Yahaira bradley has been rescheduled by at 07/08/2024 18:16 Reason: miss Performed By: #### L AQ2687, TID2916, UVX5314 ####[address] [address] PT/APTT/INRon 07-08-2024 aPTT Coag (PPP) [Time] 37.3 s High 25.5 - 35.9 s [facility] Interpretation and review of laboratory results Abnormal [facility] Collection has been rescheduled by at 07/08/2024 18:16 Reason: miss [facility] TRICHOMONAS VAGINALIS NAATon 07-08-2024 T. vaginalis DNA PHYLLIS+probe Ql (Unsp spec) Negative Normal Negative for Trichomonas vaginalis by amplification [facility] Comment on above: Order Comment: Speci men Type: MICROBIAL ISOLATE Ordering Facility: [facility] Address: [address] [facility], [place] [address] Performed By: #### T RVAMP, 448[address]-6 #### [facility] CLIA [id number] [address] [place] [address] [place] CBC w/ Differentialon 2023 Basophil Abs. 0.0 10*3/uL Normal 0.0-0.1 [facility] Comment on above: Performed By: #### L UK1244, NUJ2335, ICD3309 ####[place] [address] Basophils/100 WBC (Bld) 0.5 % Normal 0.0-1.0 [facility] Comment on above: Performed By: #### L LD8718, VKP5109, PRP0612 ####[place] [address] Differential type Auto Normal [facility] Comment on above: Performed By: #### L SL8341, DJW9728, DER2088 ####[place] [address] Eosinophils (Bld) [#/Vol] 0.4 10*3/uL Normal 0.0-0.5 [facility] Comment on above: Performed By: #### L TS6682, EKJ3081, TCY2291 ####[place] [address] Eosinophils/100 WBC (Bld) 5.9 % High 0.3-5.0 [facility] Comment on above: Performed By: #### L LR7230, TOG4434, ORV8860 ####[place] [address] Erythrocyte distribution width (RBC) [Ratio] 17.6 % Normal 10.7-18.7 [facility] Comment on above: Performed By: #### L UI7175, YGM5018, RGA9796 ####[place] [address] Hematocrit (Bld) [Volume fraction] 35.4 % Normal 33.0-51.0 [facility] Comment on above: Performed By: #### L PX7330, XLH0928, RVU0300 ####[place] [address] Hemoglobin (Bld) [Mass/Vol] 11.4 g/dL Low 12.0-16.0 [facility] Comment on above: Performed By: #### L CP6876, VPF9364, TOC5579 ####[place] [address] Lymphocytes (Bld) [#/Vol] 1.2 10*3/uL Normal 1.1-5.0 [facility] Comment on above: Performed By: #### L PJ6499, CLR0266, FKL4823 ####[place] [address] Lymphocytes/100 WBC (Bld) 17.8 % Low 24.0-44.0 [facility] Comment on above: Performed By: #### L GY8372, ACA4935, LCN6815 ####[place] [address] MCH (RBC) [Entitic mass] 30.6 pg Normal 26.0-34.0 [facility] Comment on above: Performed By: #### L BS1669, WZS4091, QRH9990 ####[place] [address] MCHC (RBC) [Mass/Vol] 32.1 g/dL Normal 32.0-36.0 [facility] Comment on above: Performed By: #### L RK6057, JVW0553, IJO6051 ####[place] [address] MCV (RBC) [Entitic vol] 95.5 fL Normal 80.0-100.0 [facility] Comment on above: Performed By: #### L JU6790, HSI0260, DXE2882 ####[place] [address] Monocytes (Bld) [#/Vol] 0.7 10*3/uL Normal 0.0-1.4 [facility] [facility] Comment on above: Performed By: #### L GR3411, IBH9660, NUU3479 ####BABATUNDE [address] [address] Monocytes/100 WBC (Bld) 10.9 % Normal 2.1-13.3 [facility] Comment on above: Performed By: #### L HP2993, OET0170, IRB4947 ####[place] [address] Neutrophils, Abs. 4.4 10*3/uL Normal 1.5-8.5 [facility] Comment on above: Performed By: #### L VA3769, MEJ4133, UNQ5725 ####BABATUNDE [address] [address] Neutrophils/100 WBC (Bld) 64.9 % Normal 35.0-66.0 [facility] Comment on above: Performed By: #### L ZJ0902, WCM2092, JEC8355 ####[place] [address] Platelet Cnt 71 10*3/uL Low 150-450 [facility] Comment on above: Performed By: #### L GY5454, WPU0744, GQT8838 ####[place] [address] Platelet mean volume (Bld) [Entitic vol] 9.4 fL Normal 6.5-10.0 [facility] Comment on above: Performed By: #### L ZV9525, CQX9406, SVV3648 ####BABATUNDE [address] [address] RBC (Bld) [#/Vol] 3.71 10*6/uL Low 4.00-5.20 [facility] Comment on above: Performed By: #### L YL8053, MGM9855, VPR6324 ####[place] [address] WBC (Bld) [#/Vol] 6.8 10*3/uL Normal 4.5-11.0 [facility] Comment on above: Performed By: #### L PY8525, JWU6817, IHY0770 ####[facility] [address] [place] [address] CBC w/Differentialon 024 Basophils (Bld) [#/Vol] 0.0 10*3/uL 0.0 - 0.1 10*3/uL [facility] Basophils/100 WBC (Bld) 0.5 % 0.0 - 1.0 % [facility] Differential cell count method Nom (Bld) Auto [facility] Eosinophils (Bld) [#/Vol] 0.4 10*3/uL 0.0 - 0.5 10*3/uL [facility] Eosinophils/100 WBC (Bld) 5.9 % High 0.3 - 5.0 % [facility] Erythrocyte distribution width (RBC) [Ratio] 17.6 % 10.7 - 18.7 % [facility] Hematocrit (Bld) [Volume fraction] 35.4 % 33.0 - 51.0 % [facility] Hemoglobin (Bld) [Mass/Vol] 11.4 g/dL Low 12.0 - 16.0 g/dL [facility] Interpretation and review of laboratory results Abnormal [facility] Lymphocytes (Bld) [#/Vol] 1.2 10*3/uL 1.1 - 5.0 10*3/uL [facility] Lymphocytes/100 WBC (Bld) 17.8 % Low 24.0 - 44.0 % [facility] MCH (RBC) [Entitic mass] 30.6 pg 26.0 - 34.0 pg [facility] MCHC (RBC) [Mass/Vol] 32.1 g/dL 32.0 - 36.0 g/dL [facility] MCV (RBC) [Entitic vol] 95.5 fL 80.0 - 100.0 fL [facility] Monocytes (Bld) [#/Vol] 0.7 10*3/uL 0.0 - 1.4 10*3/uL [facility] Monocytes/100 WBC (Bld) 10.9 % 2.1 - 13.3 % [facility] Neutrophils (Bld) [#/Vol] 4.4 10*3/uL 1.5 - 8.5 10*3/uL [facility] Neutrophils/100 WBC (Bld) 64.9 % 35.0 - 66.0 % [facility] Platelet mean volume (Bld) [Entitic vol] 9.4 fL 6.5 - 10.0 fL [facility] Platelets (Bld) [#/Vol] 71 10*3/uL Low 150 - 450 10*3/uL [facility] RBC (Bld) [#/Vol] 3.71 10*6/uL Low 4.00 - 5.2 0 10*6/uL [facility] WBC (Bld) [#/Vol] 6.8 10*3/uL 4.5 - 11.0 10*3/uL [facility] COMPREHENSIVE METABOLIC PANE [place] 07-05-2024 Albumin [Mass/Vol] 3.1 g/dL Low 3.2-5.0 [facility] Comment on above: Performed By: #### L WD3701, HSD9034, YXY3243 ####[place] [address] Albumin/Globulin [Mass ratio] 0.9 {ratio} Normal [facility] Comment on above: Performed By: #### L PJ6371, DJY3597, YFJ0583 ####[place] [address] ALP [Catalytic activity/Vol] 112 U/L Normal 42-121 [facility] Comment on above: Performed By: #### L IC6190, YYL6914, BBT2734 ####[place] [address] ALT [Catalytic activity/Vol] 51 U/L Normal 10-60 [facility] Comment on above: Performed By: #### L CW4086, MWJ5033, VGF7141 ####[place] [address] Anion gap [Moles/Vol] 1 mmol/L Normal [facility] Comment on above: Performed By: #### L SU6572, YXO4222, SXR6905 ####[place] [address] AST [Catalytic activity/Vol] 78 U/L High 10-42 [facility] Comment on above: Performed By: #### L LP7723, DUC8364, FOU6048 ####[place] [address] B/C 16 Normal 10-20 [facility] Comment on above: Performed By: #### L NJ3252, RRO0032, VHI9416 ####[place] [address] Bilirubin.direct [Mass/Vol] 1.7 mg/dL High 0.2-1.0 [facility] Comment on above: Performed By: #### L PZ0492, DJZ1994, FXB4930 ####[place] [address] Calcium [Mass/Vol] 9.1 mg/dL Normal 8.5-10.5 [facility] Comment on above: Performed By: #### L PQ1986, BOJ3722, JHO7026 ####[place] [address] Chloride [Moles/Vol] 112 mmol/L High 101-111 [facility] Comment on above: Performed By: #### L JK0389, GWJ3642, NUT0213 ####[place] [address] CO2 [Moles/Vol] 24 mmol/L Normal 21-31 [facility] Comment on above: Performed By: #### L UT6923, YWD9324, QYZ4959 ####[place] [address] Creatinine [Mass/Vol] 0.8 mg/dL Normal 0.4-1.0 [facility] Comment on above: Performed By: #### L HI0707, VLQ4527, PXG7097 ####BABATUN[address] [address] GFR/1.73 sq M.predicted MDRD (S/P/Bld) [Vol rate/Area] 76 mL/min/{1.73_m2} Normal [facility] Comment on above: Result Comment: *The estimated Glomerular Filtration Rate(EGFR) may not be accurate for children under the age of 18 yrs. To estimate the GFR for -Americans multiply the result provided by 1.21.Stage 1 90 mL/min or greaterStage 2 60-89 mL/minStage 3 30-59 mL/minStage 4 15-29 mL/minStage 5 14 mL/min or less Performed By: #### L OO4696, AVE3071, KLH2784 ####BABATUN[address] [address] Glucose [Mass/Vol] 99 mg/dL Normal 70-110 [facility] Comment on above: Performed By: #### L WO8939, KGB5896, NUG3453 ####BABATUN[address] [address] Osmolality [Osmolality] 274 mosm/kg Normal 266-309 [facility] Comment on above: Performed By: #### L LC4244, HUV6911, LEB5087 ####BABATUN[address] [address] Potassium [Moles/Vol] 4.2 mmol/L Normal 3.6-5.0 [facility] Comment on above: Performed By: #### L UA2445, VGS7650, LGV1714 ####[address]ABATUN[address] [address] Protein [Mass/Vol] 6.6 g/dL Normal 6.1-7.8 [facility] Comment on above: Performed By: #### L CP3153, DRR2580, ZVV6283 ####BABATUN[address] [address] Sodium [Moles/Vol] 137 mmol/L Normal 135-145 [facility] Comment on above: Performed By: #### L WH6975, PGN1552, HZJ3685 ####[facility] [address] [place] [address] Urea nitrogen [Mass/Vol] 13 mg/dL Normal 2-32 [facility] Comment on above: Performed By: #### L RN8450, KQT7520, UPF4510 ####[facility] [address] [place] [address] Comprehensive Metabolic Pane merritt 07-05-2024 Albumin [Mass/Vol] 3.1 g/dL Low 3.2 - 5.0 g/dL [facility] Albumin/Globulin [Mass ratio] 0.9 {ratio} [facility] ALP [Catalytic activity/Vol] 112 U/L 42 - 121 [iU]/L [facility] ALT [Catalytic activity/Vol] 51 U/L 10 - 60 [iU]/L [facility] Anion gap [Moles/Vol] 1 mmol/L [facility] AST [Catalytic activity/Vol] 78 U/L High 10 - 42 [iU]/L [facility] Bilirubin [Mass/Vol] 1.7 mg/dL High 0.2 - 1 .0 mg/dL [facility] Calcium [Mass/Vol] 9.1 mg/dL 8.5 - 10. 5 mg/dL [facility] Chloride [Moles/Vol] 112 mmol/L High 101 - 1 11 mmol/L [facility] CO2 [Moles/Vol] 24 mmol/L 21 - 31 mmol/L [facility] Creatinine [Mass/Vol] 0.8 mg/dL 0.4 - 1.0 mg/dL [facility] GFR/1.73 sq M.predicted MDRD (S/P/Bld) [Vol rate/Area] 76 mL/min/{1.73_m2} [facility] Comment on above: *The estimated Glome rular [...] [Mass/Vol] 99 mg/dL 70 - 110 mg/dL [facility] Interpretation and review of laboratory results Abnormal [facility] Osmolality Calc [Osmolality] 274 266 - 309 [facility] Potassium [Moles/Vol] 4.2 mmol/L 3.6 - 5.0 mmol/L [facility] Protein [Mass/Vol] 6.6 g/dL 6.1 - 7.8 g/dL [facility] Sodium [Moles/Vol] 137 mmol/L 135 - 145 mmol/L [facility] Urea nitrogen [Mass/Vol] 13 mg/dL 2 - 32 mg/dL [facility] Urea nitrogen/Creatinine [Mass ratio] 16 mg/mg 10 - 20 [facility] FLUID CELL COUNTon 4 Basophils/100 WBC (Bld) 0 % Normal [facility] Comment on above: Performed By: #### L WU6538 ####[place] [address] Eosinophils/100 WBC (Bld) 0 % Normal [facility] Comment on above: Performed By: #### L GX8434 ####[place] [address] Lymphocytes/100 WBC (Bld) 59 % Normal [facility] Comment on above: Performed By: #### L FA5792 ####[place] [address] MACROPHAGES 25 % Normal [facility] Comment on above: Performed By: #### L EB1032 ####[place] [address] MESOTHELIAL 13 % Normal [facility] Comment on above: Performed By: #### L PR0585 ####[place] [address] Neutrophils/100 WBC (Bld) 3 % Normal [facility] Comment on above: Performed By: #### L VJ2883 ####BABATUN[address] [address] PATHOLOGY REVIEW see below Normal [facility] Comment on above: Result Comment: REVI EWED BY DR. Silvia AGUDELO: Agree with differential. See report [id number]. 07/05/2024 9:50 AM Performed By: #### L TL8578 ####[place] [address] PLASMA CELLS 0 % Normal [facility] Comment on above: Performed By: #### L DD0775 ####[place] [address] OTHER 0 Normal [facility] Comment on above: Performed By: #### L CP9541 ####[place] [address] HEPATITIS PANEL ACUTEon 06-26 HEPATITIS C AB Reactive Abnormal Negative [facility] Comment on above: Order Comment: [id number] Result Comment: Conf irmatory testing is recommended and is available at [employer](order [id number]). Performed By: #### L KF0749 ####[place] [address] HEP B CORE AB IGM Negative Normal Negative [facility] Comment on above: Order Comment: [id number] Performed By: #### L MI4830 ####[place] [address] HEPATITIS A AB IGM Negative Normal Negative [facility] Comment on above: Order Comment: [id number] Performed By: #### L AU9417 ####[place] [address] HEP B SURFACE AG Negative Normal Negative [facility] Comment on above: Order Comment: [id number] Performed By: #### L TX6483 ####[place] [address] Hepatitis Panelon 07-05-2024 HAV IgM IA Ql Negative Negative [facility] HBV core IgM IA Qn Negative Negative [facility] HBV surface Ag IA Ql Negative Negative [facility] HCV Ab IA Ql Reactive Abnormal Negative [facility] Comment on above: Confirmatory testing is recommended and is available at [employer] (order [id number]). Interpretation and review of laboratory results Abnormal [facility] [id number] [facility] PT AND APTTon 07-05-2024 aPTT Coag (Bld) [Time] 36.7 s High 25.5-35.9 [facility] Comment on above: Performed By: #### L JM6866, HAW9722, TMO0730 ####[facility] [address] [place] [address] INR Coag (PPP) [Relative time] 1.5 {INR} High 0.9-1.1 [facility] Comment on above: LEVEL OF THERAPY IND [...] MECHANICAL HEART VALVES Performed By: #### L UY1789, STO3998, RQG3659 ####[address] [address] PT Coag (PPP) [Time] 18.0 s High 10.1-13.7 [facility] Comment on above: Performed By: #### L LL0730, EKW6995, AIU5050 ####[facility] [address] [place] [address] PT/APTT/INRon 07-05-2024 aPTT Coag (PPP) [Time] 36.7 s High 25.5 - 35.9 s [facility] Interpretation and review of laboratory results Abnormal [facility] Albumin, Body Fluidon 2023 Albumin, Body Fluid 437 mg/dL Normal [facility] Comment on above: Order Comment: ascit es Result Comment: INTE RPRETIVE INFORMATION: Albumin, Body FluidA reference interval has not been established for body fluidspecimens.This test was developed and its performance characteristicsdetermined by [email or web address]. It has not been cleared orapproved by the U.S. Food and Drug Administration. This test wasperformed in a CLIA-certified laboratory and is intended forclinical purposes.Performed By: [email or web address] [place] [id number] Director: Elvin Diaz MD, PhDCLIA Number: [id number] Performed By: #### L MA4619, HZP0612, LID4167, AVL6472, JRD7075 ####[place] [address] Source: Ascites Normal [facility] Comment on above: Order Comment: ascit es Result Comment: Coni ected result;Previously reported as Ascities, by V/SONIDO at 14:08 on07/02/24 Performed By: #### L BU7802, TFI0593, VBQ3449, IYN7125, EUZ0658 ####[place] [address] CBC w/ Differentialon 2023 Basophil Abs. 0.0 10*3/uL Normal 0.0-0.1 [facility] Comment on above: Performed By: #### L HD4945, NNM1334, RYN7787, NSU7593 ####[place] [address] Basophils/100 WBC (Bld) 0.4 % Normal 0.0-1.0 [facility] Comment on above: Performed By: #### L QC1762, XDG2728, RJZ9851, HYN3678 ####[place] [address] Differential type Auto Normal [facility] Comment on above: Performed By: #### L MK4710, ZUL4046, FJE3590, JDG3185 ####[place] [address] Eosinophils (Bld) [#/Vol] 0.3 10*3/uL Normal 0.0-0.5 [facility] Comment on above: Performed By: #### L AZ9354, VAI2336, KOW0450, MLX2669 ####[address] [address] Eosinophils/100 WBC (Bld) 5.2 % High 0.3-5.0 [facility] Comment on above: Performed By: #### L SO9898, JKW8838, TED4539, MOZ4163 ####[address] [address] Erythrocyte distribution width (RBC) [Ratio] 16.6 % Normal 10.7-18.7 [facility] Comment on above: Performed By: #### L FM9463, ICP6528, ZOP2203, CTF4906 ####[place] [address] Hematocrit (Bld) [Volume fraction] 34.1 % Normal 33.0-51.0 [facility] Comment on above: Performed By: #### L SL6736, ANE6569, LQR3873, IGX4911 ####[place] [address] Hemoglobin (Bld) [Mass/Vol] 11.1 g/dL Low 12.0-16.0 [facility] Comment on above: Performed By: #### L VA3451, TNS2937, JLI4045, CPG6192 ####[address] [address] Lymphocytes (Bld) [#/Vol] 0.8 10*3/uL Low 1.1-5.0 [facility] Comment on above: Performed By: #### L QZ7972, HVJ3091, DNJ6604, OWW5535 ####[place] [address] Lymphocytes/100 WBC (Bld) 14.0 % Low 24.0-44.0 [facility] Comment on above: Performed By: #### L CF3931, PUC4207, JQF6254, UUB1000 ####[place] [address] MCH (RBC) [Entitic mass] 31.0 pg Normal 26.0-34.0 [facility] Comment on above: Performed By: #### L IT9665, ZLU7729, DEA2848, QWI7404 ####[place] [address] MCHC (RBC) [Mass/Vol] 32.5 g/dL Normal 32.0-36.0 [facility] Comment on above: Performed By: #### L HG9051, OSX5354, SGO3821, CHM6151 ####[place] [address] MCV (RBC) [Entitic vol] 95.2 fL Normal 80.0-100.0 [facility] Comment on above: Performed By: #### L YZ6850, AJY0455, WAP1708, FTI5206 ####[place] [address] Monocytes (Bld) [#/Vol] 0.5 10*3/uL Normal 0.0-1.4 [facility] Comment on above: Performed By: #### L DH2933, YWU0343, ORR4202, UZD1625 ####[place] [address] Monocytes/100 WBC (Bld) 8.0 % Normal 2.1-13.3 [facility] Comment on above: Performed By: #### L FJ9727, SGP4668, RMA6183, XNB7942 ####[place] [address] Neutrophils, Abs. 4.2 10*3/uL Normal 1.5-8.5 [facility] Comment on above: Performed By: #### L LH7059, KMY3483, RGW9618, JSO9702 ####[place] [address] Neutrophils/100 WBC (Bld) 72.4 % High 35.0-66.0 [facility] Comment on above: Performed By: #### L WP9310, GFA4432, MGZ0655, GEV2784 ####[address] [address] Platelet Cnt 64 10*3/uL Low 150-450 [facility] Comment on above: Performed By: #### L XP9073, PYR7931, VGB5361, WPD1179 ####[place] [address] Platelet mean volume (Bld) [Entitic vol] 9.2 fL Normal 6.5-10.0 [facility] Comment on above: Performed By: #### L JK4199, CEJ4794, RKG4370, ZYK1892 ####[place] [address] RBC (Bld) [#/Vol] 3.58 10*6/uL Low 4.00-5.20 [facility] Comment on above: Performed By: #### L MI9677, GWJ1465, OHD6613, SQM6999 ####[place] [address] WBC (Bld) [#/Vol] 5.9 10*3/uL Normal 4.5-11.0 [facility] Comment on above: Performed By: #### L KL4454, FEG7026, SDC9932, ZLC1412 ####[place] [address] CBC w/Differentialon 024 Basophils (Bld) [#/Vol] 0.0 10*3/uL 0.0 - 0.1 10*3/uL [facility] Basophils/100 WBC (Bld) 0.4 % 0.0 - 1.0 % [facility] Differential cell count method Nom (Bld) Auto [facility] Eosinophils (Bld) [#/Vol] 0.3 10*3/uL 0.0 - 0.5 10*3/uL [facility] Eosinophils/100 WBC (Bld) 5.2 % High 0.3 - 5.0 % [facility] Erythrocyte distribution width (RBC) [Ratio] 16.6 % 10.7 - 18.7 % [facility] Hematocrit (Bld) [Volume fraction] 34.1 % 33.0 - 51.0 % [facility] Hemoglobin (Bld) [Mass/Vol] 11.1 g/dL Low 12.0 - 16.0 g/dL [facility] Interpretation and review of laboratory results Abnormal [facility] Lymphocytes (Bld) [#/Vol] 0.8 10*3/uL Low 1.1 - 5.0 10*3/uL [facility] Lymphocytes/100 WBC (Bld) 14.0 % Low 24.0 - 44.0 % [facility] MCH (RBC) [Entitic mass] 31.0 pg 26.0 - 34.0 pg [facility] MCHC (RBC) [Mass/Vol] 32.5 g/dL 32.0 - 36.0 g/dL [facility] MCV (RBC) [Entitic vol] 95.2 fL 80.0 - 100.0 fL [facility] Monocytes (Bld) [#/Vol] 0.5 10*3/uL 0.0 - 1.4 10*3/uL [facility] Monocytes/100 WBC (Bld) 8.0 % 2.1 - 13.3 % [facility] Neutrophils (Bld) [#/Vol] 4.2 10*3/uL 1.5 - 8.5 10*3/uL [facility] Neutrophils/100 WBC (Bld) 72.4 % High 35.0 - 66.0 % [facility] Platelet mean volume (Bld) [Entitic vol] 9.2 fL 6.5 - 10.0 fL [facility] Platelets (Bld) [#/Vol] 64 10*3/uL Low 150 - 450 10*3/uL [facility] RBC (Bld) [#/Vol] 3.58 10*6/uL Low 4.00 - 5.2 0 10*6/uL [facility] WBC (Bld) [#/Vol] 5.9 10*3/uL 4.5 - 11.0 10*3/uL [facility] COMPREHENSIVE METABOLIC PANE [place] 07-02-2024 Albumin [Mass/Vol] 3.0 g/dL Low 3.2-5.0 [facility] Comment on above: Performed By: #### L KX6555, LEH9780, QZB6717, MJR5665 ####[place] [address] Albumin/Globulin [Mass ratio] 0.8 {ratio} Normal [facility] Comment on above: Performed By: #### L YO8978, OAJ3294, XDB9086, KHN1206 ####[place] [address] ALP [Catalytic activity/Vol] 107 U/L Normal 42-121 [facility] Comment on above: Performed By: #### L OS3754, ASO2111, KQE6404, KRN9010 ####[place] [address] ALT [Catalytic activity/Vol] 54 U/L Normal 10-60 [facility] Comment on above: Performed By: #### L OK7650, TMY1250, YBR1981, ULD7094 ####[place] [address] Anion gap [Moles/Vol] 2 mmol/L Normal [facility] Comment on above: Performed By: #### L CQ1806, DIQ8461, IJD6984, FIM0384 ####[facility] [place] [address] AST [Catalytic activity/Vol] 96 U/L High 10-42 [facility] Comment on above: Performed By: #### L VC3815, LKB2302, VJU9039, VGT7647 ####[place] [address] B/C 14 Normal 10-20 [facility] Comment on above: Performed By: #### L FM0217, CDG9014, LXI7990, UVK5780 ####[place] [address] Bilirubin.direct [Mass/Vol] 1.7 mg/dL High 0.2-1.0 [facility] Comment on above: Performed By: #### L RX9512, VPQ4568, EKF5124, CAU5063 ####[facility] [address] [place] [address] Calcium [Mass/Vol] 8.6 mg/dL Normal 8.5-10.5 [facility] Comment on above: Performed By: #### L VN0893, FBO3482, OCQ0165, HQE3392 ####[facility] [address] [place] [address] Chloride [Moles/Vol] 112 mmol/L High 101-111 [facility] Comment on above: Performed By: #### L JG0820, XFW0971, KRV1339, NUF2971 ####[facility] [address] [place] [address] CO2 [Moles/Vol] 25 mmol/L Normal 21-31 [facility] Comment on above: Performed By: #### L CP0227, DLJ0008, WXR7178, CSM6934 ####[place] [address] Creatinine [Mass/Vol] 0.8 mg/dL Normal 0.4-1.0 [facility] Comment on above: Performed By: #### L EF5015, UVM9642, NML2043, TVZ8498 ####[place] [address] GFR/1.73 sq M.predicted MDRD (S/P/Bld) [Vol rate/Area] 76 mL/min/{1.73_m2} Normal [facility] Comment on above: Result Comment: *The estimated Glomerular Filtration Rate(EGFR) may not be accurate for children under the age of 18 yrs. To estimate the GFR for -Americans multiply the result provided by 1.21.Stage 1 90 mL/min or greaterStage 2 60-89 mL/minStage 3 30-59 mL/minStage 4 15-29 mL/minStage 5 14 mL/min or less Performed By: #### L BQ0539, TOV4648, FSE0708, USK5699 ####[address] [address] Glucose [Mass/Vol] 121 mg/dL High 70-110 [facility] Comment on above: Performed By: #### L GA4297, TZC1364, INK9546, EPN6818 ####[address] [address] Osmolality [Osmolality] 278 mosm/kg Normal 266-309 [facility] Comment on above: Performed By: #### L JQ6804, QIH0438, AOR4657, FES1733 ####[place] [address] Potassium [Moles/Vol] 3.9 mmol/L Normal 3.6-5.0 [facility] Comment on above: Performed By: #### L LU7393, VSA7738, GJP5534, YNF6599 ####[address] [address] Protein [Mass/Vol] 6.7 g/dL Normal 6.1-7.8 [facility] Comment on above: Performed By: #### L GS0475, WIK7994, QHB7317, TEM8166 ####[address] [address] Sodium [Moles/Vol] 139 mmol/L Normal 135-145 [facility] Comment on above: Performed By: #### L ZD7215, JYM6478, [id number], [id number] ####[address] [address] Urea nitrogen [Mass/Vol] 11 mg/dL Normal 2-32 [facility] Comment on above: Performed By: #### L [id number], [id number], [id number], [id number] ####[place] [address] Comprehensive Metabolic Pane merritt 07-02-2024 Albumin [Mass/Vol] 3.0 g/dL Low 3.2 - 5.0 g/dL [facility] Albumin/Globulin [Mass ratio] 0.8 {ratio} [facility] ALP [Catalytic activity/Vol] 107 U/L 42 - 121 [iU]/L [facility] ALT [Catalytic activity/Vol] 54 U/L 10 - 60 [iU]/L [facility] Anion gap [Moles/Vol] 2 mmol/L [facility] AST [Catalytic activity/Vol] 96 U/L High 10 - 42 [iU]/L [facility] Bilirubin [Mass/Vol] 1.7 mg/dL High 0.2 - 1 .0 mg/dL [facility] [facility] Calcium [Mass/Vol] 8.6 mg/dL 8.5 - 10. 5 mg/dL [facility] Chloride [Moles/Vol] 112 mmol/L High 101 - 1 11 mmol/L [facility] CO2 [Moles/Vol] 25 mmol/L 21 - 31 mmol/L [facility] Creatinine [Mass/Vol] 0.8 mg/dL 0.4 - 1.0 mg/dL [facility] GFR/1.73 sq M.predicted MDRD (S/P/Bld) [Vol rate/Area] 76 mL/min/{1.73_m2} [facility] Comment on above: *The estimated Glome rular [...] 121 mg/dL High 70 - 110 mg/dL [facility] Interpretation and review of laboratory results Abnormal [facility] Osmolality Calc [Osmolality] 278 266 - 309 [facility] Potassium [Moles/Vol] 3.9 mmol/L 3.6 - 5.0 mmol/L [facility] Protein [Mass/Vol] 6.7 g/dL 6.1 - 7.8 g/dL [facility] Sodium [Moles/Vol] 139 mmol/L 135 - 145 mmol/L [facility] Urea nitrogen [Mass/Vol] 11 mg/dL 2 - 32 mg/dL [facility] Urea nitrogen/Creatinine [Mass ratio] 14 mg/mg 10 - 20 [facility] FLUID CELL COUNTon 4 Character (U) Clear Normal [facility] Comment on above: Performed By: #### L [id number] ####[place] [address] Color (U) Yellow Normal [facility] Comment on above: Performed By: #### L [id number] ####[place] [address] FLD COMMENT see below [facility] Comment on above: Result Comment: Refe rence ranges & other method performance specifications have not beenestablished for this body fluid type. The test result must be integratedinto the clinical context for interpretation. Performed By: #### L [id number] ####[place] [address] RBC 587 uL [facility] Comment on above: Performed By: #### L [id number] ####[place] [address] SOURCE Ascites Normal [facility] Comment on above: Performed By: #### L [id number] ####[place] [address] TOTAL NUC. CELLS 97 uL [facility] Comment on above: Result Comment: RESU LTS OF COUNT MAY BE INACCURATE IF SPECIMEN IS PARTIALLYCLOTTED OR EXHIBIT CELL CLUMPING. Performed By: #### L [id number] ####[place] [address] TUBE NUMBER Syringe Normal [facility] Comment on above: Performed By: #### L [id number] ####[place] [address] VOLUME 60.0 [facility] Comment on above: Performed By: #### L [id number] ####[place] [address] FLUID CULTUREon 07-02-2024 FLUID CULTURE Bacteria identified in Body fluid by Culture FLUID CULTURE: No growth. Microscopic observation [Identifier] in Specimen by Gram stain GRAM STAIN SMEAR: Few WBC'S. No organisms seen. Normal [facility] Comment on above: Performed By: #### L WQ8523 ####[facility] [address] [place] [address] GLUCOSE, FLUIDon 07-02-2024 GLUCOSE, FLUID 138 mg/dL Normal [facility] Comment on above: Order Comment: ascit es Result Comment: Refe rence ranges & other method performance specifications have not beenestablished for this body fluid type. The test result must be integratedinto the clinical context for interpretation. Performed By: #### L [id number], IVZ6735, JST9234, ESE3650, UQQ4759 ####[facility] [address] [place] [address] Glucose Body Fluidon 024 Glucose (Body fld) [Mass/Vol] 138 mg/dL [facility] Comment on above: Reference ranges & o ther method performance specifications have not been established for this body fluid type. The test result must be integrated into the clinical context for interpretation. HEPATITIS PANEL ACUTEon HEPATITIS C AB Reactive Abnormal Negative [facility] Comment on above: Result Comment: Conf irmatory testing is recommended and is available at [place] [facility](order [id number]). Performed By: #### L VU7935 ####[place] [address] HEP B CORE AB IGM Negative Normal Negative [facility] Comment on above: Performed By: #### L [id number] ####[place] [address] HEPATITIS A AB IGM Negative Normal Negative [facility] Comment on above: Performed By: #### L AB9495 ####BABATUNDE Harvey [address] [place] [address] HEP B SURFACE AG Negative Normal Negative [facility] Comment on above: Performed By: #### L UU0601 ####[place] [address] Hepatitis Panelon 07-02-2024 HAV IgM IA Ql Negative Negative [facility] HBV core IgM IA Qn Negative Negative [facility] HBV surface Ag IA Ql Negative Negative [facility] HCV Ab IA Ql Reactive Abnormal Negative [facility] Comment on above: Confirmatory testing is recommended and is available at [place] [facility] (order [id number]). Interpretation and review of laboratory results Abnormal [facility] LDH, FLUIDon 07-02-2024 LDH FLUID 46 [iU]/L Low 60-160 [facility] Comment on above: Order Comment: ascit es Performed By: #### L VU9691, SKN2981, IZL0872, SGZ5104, FDZ6724 ####[facility] [address] [place] [address] LDH, Fluidon 07-02-2024 Interpretation and review of laboratory results Abnormal [facility] LDH (Body fld) [Catalytic activity/Vol] 46 [iU]/L Low 60 - 160 [iU]/L [facility] LIPASEon 07-02-2024 Lipase [Catalytic activity/Vol] 41 U/L Normal -82 [facility] Comment on above: Performed By: #### L FQ7506, CDP7985, RGP5193, KMH8964 ####[place] [address] Lipaseon 07-02-2024 Lipase [Catalytic activity/Vol] 41 U/L 11 - 82 U/L [facility] NON CIGAR WRAPPER TENDER AUTOMATIC CASESon 07-02-2024 NON CIGAR WRAPPER TENDER AUTOMATIC CASES Normal [facility] Comment on above: Performed By: #### L MR3354 ####[place] [address] No Panel Informationon 07-02 ascites [facility] PH, FLUIDon 07-02-2024 PH, FLUID 7.7 Normal [facility] Comment on above: Order Comment: ascit es Performed By: #### L OI5485, ORN7490, YDG4105, IXZ1029, JAG3123 ####BABATUNDE Harvey [address] [place] [address] SOURCE ascites Normal [facility] Comment on above: Order Comment: ascit es Performed By: #### L NA3096, KSX0119, ATS0919, FFV0552, USW8648 ####[facility] [address] [place] [address] PROTEIN, FLUIDon 07-02-2024 SOURCE ascites Normal [facility] Comment on above: Order Comment: ascit es Performed By: #### L EO4971, WLY7800, ACR3061, ZDZ0023, PDP4189 ####[facility] [address] [place] [address] PROTEIN, FLUID 3.0 g/dL Normal [facility] Comment on above: Order Comment: ascit es Result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 Comment on above: Performed By: #### B MP, MORPH, GFR, CBC, ADIFF, MDW, ANEU #### [address] [address] Basophils/100 WBC (Bld) 0.4 % Normal 0.0-2.5 [facility] ([place]) Comment on above: Performed By: #### B MP, MORPH, GFR, CBC, ADIFF, MDW, ANEU #### [address] [address] Eosinophil, Absolute 0.3 10 3/mcL Normal 0.0-0.4 [facility] ([place]) Comment on above: Performed By: #### B MP, MORPH, GFR, CBC, ADIFF, MDW, ANEU #### [address] [address] Eosinophils/100 WBC (Bld) 3.8 % Normal 0.0-7.0 [facility] ([place] Comment on above: Performed By: #### B MP, MORPH, GFR, CBC, ADIFF, W, ANEU #### [address] [address] Lymphocyte, Absolute 1.3 10 3/mcL Normal 0.8-3.9 [facility] ([place]) Comment on above: Performed By: #### B MP, MORPH, GFR, CBC, ADIFF, MDW, ANEU #### [address] [address] Lymphocytes/100 WBC (Bld) 19.3 % Normal 10.0-50.0 [facility] ([place] Comment on above: Performed By: #### B MP, MORPH, GFR, CBC, ADIFF, MDW, ANEU #### [address] [address] Monocyte, Absolute 0.6 10 3/mcL Normal 0.2-1.0 [facility] ([place]) Comment on above: Performed By: #### B MP, MORPH, GFR, CBC, ADIFF, W, ANEU #### [address] [address] Monocytes/100 WBC (Bld) 9.1 % Normal 1.7-13.0 [facility] ([place] Comment on above: Performed By: #### B MP, MORPH, GFR, CBC, ADIFF, MDW, ANEU #### [address] [address] Neutrophils/100 WBC (Bld) 67.4 % Normal 37.0-80.0 [facility] ([place]) Comment on above: Performed By: #### B MP, MORPH, GFR, CBC, ADIFF, W, ANEU #### [address] [address] .GFRon 03-23-2024 GFR Non- 64 ml/min/1.73sqm Normal [facility] ([place] Comment on above: Result Comment: GFR Population [...] MORPH, GFR, CBC, ADIFF, MDW, ANEU #### [address] [address] GFR 77 ml/min/1.73sqm Normal [facility] ([place] Comment on above: Result Comment: GFR Population [...] MORPH, GFR, CBC, LUIS BERTRAND, ANEU #### [address] [address] .MDWon 03-23-2024 Monocyte Distribution Width 26.42 High 0.00-20.00 [facility] ([place] Comment on above: Result Comment: The predictive value of MDW for identifying sepsis in patients with hematological abnormalities has not been established Performed By: #### B MP, MORPH, GFR, CBC, LUIS BERTRAND, ANEU #### [address] [address] .Morphon 03-23-2024 Platelet Estimate Decreased Normal [facility] ([place] Comment on above: Performed By: #### B MP, MORPH, GFR, CBC, LUIS BERTRAND, ANEU #### [address] [address] .NEUABSon 03-23-2024 Neutrophil, Absolute 4.6 10 3/mcL Normal 2.9-6.2 [facility]) Comment on above: Performed By: #### B MP, MORPH, GFR, CBC, ADSAVITA, LUIS, ANEU #### [address] [address] Melody 03-23-2024 Ammonia (P) [Moles/Vol] 42 umol/L High 11-32 [facility] ([place] Comment on above: Performed By: #### A MM ####[address] [address] BMPon 03-23-2024 BUN/Creatinine Ratio 14 ratio Normal 7-27 [facility] ([place]) Comment on above: Performed By: #### B MP, MORPH, GFR, CBC, ELZA, LUIS, ANEU #### [address] [address] Calcium [Mass/Vol] 8.4 mg/dL Normal 8.4-10.2 [facility] ([place]) Comment on above: Performed By: #### B MP, MORPH, GFR, CBC, ELZA, LUIS, ANEU #### [address] [address] Chloride [Moles/Vol] 106 mmol/L Normal 98-107 [facility] ([place]) Comment on above: Performed By: #### B MP, MORPH, GFR, CBC, LUIS BERTRAND, ANEU #### [address] [address] CO2 [Moles/Vol] 24 mmol/L Normal 22-29 [facility] ([place] Comment on above: Performed By: #### B MP, MORPH, GFR, CBC, LUIS BERTRAND, ANEU #### [address] [address] Creatinine [Mass/Vol] 0.93 mg/dL Normal 0.55-1.02 [facility] ([place]) Comment on above: Performed By: #### B MP, MORPH, GFR, CBC, LUIS BERTRAND, ANEU #### [address] [address] Electrolyte Balance 8.0 mEq/L Normal 4.0-15.0 [facility] ([place]) Comment on above: Performed By: #### B MP, MORPH, GFR, CBC, ELZA, LUIS, ANEU #### [address] [address] Glucose [Mass/Vol] 100 mg/dL Normal 70-105 [facility] ([place] Comment on above: Performed By: #### B MP, MORPH, GFR, CBC, ELZA, LUIS, ANEU #### [address] [address] Potassium [Moles/Vol] 3.6 mmol/L Normal 3.5-5.1 [facility] ([place] Comment on above: Performed By: #### B MP, MORPH, GFR, CBC, LUIS BERTRAND, ANEU #### [address] [address] Sodium [Moles/Vol] 138 mmol/L Normal 136-145 [facility] ([place]) Comment on above: Performed By: #### B MP, MORPH, GFR, CBC, LUIS BERTRAND, ANEU #### [address] [address] Urea nitrogen [Mass/Vol] 13 mg/dL Normal 7-18 [facility] ([place] Comment on above: Performed By: #### B MP, MORPH, GFR, CBC, LUIS BERTRAND, ANEU #### [address] [address] CBCon 03-23-2024 Erythrocyte distribution width (RBC) [Ratio] 20.9 % High 11.5-14.5 [facility] ([place] Comment on above: Performed By: #### B MP, MORPH, GFR, CBC, LUIS BERTRAND, ANEU #### [address] [address] Hematocrit (Bld) [Volume fraction] 33.8 % Low 37.0-47.0 [facility] ([place] Comment on above: Performed By: #### B MP, MORPH, GFR, CBC, LUIS BERTRAND, ANEU #### [address] [address] Hgb 11.7 G/dL Low 12.0-16.0 [facility] ([place] Comment on above: Performed By: #### B MP, MORPH, GFR, CBC, LUIS BERTRAND, ANEU #### [address] [address] MCH (RBC) [Entitic mass] 29.4 pg Normal 27.0-31.2 [facility] ([place] Comment on above: Performed By: #### B MP, MORPH, GFR, CBC, LUIS BERTRAND, ANEU #### [address] [address] MCHC 34.5 G/dL Normal 33.0-37.0 [facility] ([place] Comment on above: Performed By: #### B MP, MORPH, GFR, CBC, LUIS BERTRAND, ANEU #### [address] [address] MCV (RBC) [Entitic vol] 85.3 fL Normal 80.0-94.0 [facility] ([place] Comment on above: Performed By: #### B MP, MORPH, GFR, CBC, LUIS BERTRAND, ANEU #### [address] [address] Platelet 64 10 3/mcL Low 130-400 [facility] ([place] Comment on above: Performed By: #### B MP, MORPH, GFR, CBC, ADSAVITA, W, ANEU #### [place] [address] Platelet mean volume (Bld) [Entitic vol] 8.2 fL Normal 7.4-10.4 [facility] ([place] Comment on above: Performed By: #### B MP, MORPH, GFR, CBC, LUIS BERTRAND, ANEU #### [address] [address] RBC 3.97 10 6/mcL Low 4.20-5.40 [facility] ([place] Comment on above: Performed By: #### B MP, MORPH, GFR, CBC, LUIS BERTRAND, ANEU #### [address] [address] WBC 6.7 10 3/mcL Normal 4.6-10.8 [facility] ([place] Comment on above: Performed By: #### B MP, MORPH, GFR, CBC, LUIS BERTRAND, ANEU #### [address] [address] [address] SOFT TISSUE NECK W/ CONTR David [...] abscess or drainable fluid collection. Interpreted by: Harjit Mccullough MD Preliminary Report By: Harjit Mccullough MD Electronically signed By Harjit Mccullough MD Dictated Date: 03/23/2024 5:00:42 PM Prelim Date: 03/23/2024 5:09:20 PM Sign Date: 03/23/2024 5:09:20 PM Ordering Provider: HAYDER Lagos [facility] ([place] LABORATORYOrdered By: SYSTEM SYSTEM on 03-23-2024 Ammonia [...] Routine cultures are held for 5 days. [facility] Work Phone: UA DIP, URINE (POC)on 2023 BILIRUBIN UA (POCT) Negative Negative [facility] CLARITY UA (POCT) Cloudy [facility] COLOR UA (POCT) Dark yellow [facility] GLUCOSE UA (POCT) Negative Negative mg/dL [facility] Hemoglobin Ql (U) Large Abnormal Negative [facility] Interpretation and review of laboratory results Abnormal [facility] KETONE UA (POCT) Negative Negative mg/dL [facility] LEUKOCYTES UA (POCT) Small Abnormal Negative [facility] NITRITE UA (POCT) Positive Abnormal Negative [facility] PH UA (POCT) 6.0 4.5 - 8.0 [facility] Protein Ql (U) 100 mg/dL Abnormal Negative [facility] SPECIFIC GRAVITY UA (POCT) 1.025 1.005 - 1.030 [facility] UROBILINOGEN UA (POCT) 2.0 Abnormal Normal E.U./d L [facility] Location:[facility], [address] [place] [address], [place], [address] [facility] POINT OF CARE [facility] Absolute lymphocyte countOrd ered By: Shon Quintero on 12-09-2023 Lymphocytes Auto (Unsp spec) [#/Vol] 1.56 10*3/uL 0.83-4.51 [facility] Automated lymphocyte count a s percentage of total leukocytesOrdered By: Shon Quintero on 12-09-2023 Lymphocytes/100 WBC Auto (Unsp spec) 21.5 % 19-41 [facility] Basophil percentageOrdered B y: Erik Cordova on 12-09-2023 Basophil percentage 10-25 SEEN /hpf 0-5 [facility] Basophil percentage 29.0 umol/L 11-32 [place] Basophil percentageOrdered B y: Shon Quintero on 12-09-2023 Basophil percentage 8.9 g/dL 12.0-15.0 [facility] Basophil percentage 108 mg/dL 74-106 [facility] Basophil percentage 8.0 g/dL 6.4-8.2 [facility] Basophil percentage 1.70 mg/dL 0.20-1.00 [facility] Basophil percentage 139 mmol/L 136-145 [facility] Basophil percentage 3.7 mmol/L 3.5-5.1 [facility] Basophil percentage 112 mmol/L 98-107 [facility] Basophils (Bld) [#/Vol] 7.3 10*3/uL 4.4-11.0 [facility] Basophils (Bld) [#/Vol] 4.7 10*3/uL 2.0-7.7 [facility] Basophils/100 WBC (Bld) 64.5 % 47-70 [facility] Basophils/100 WBC (Bld) 10.8 % 0-10 [facility] Basophils/100 WBC (Bld) 1.9 % 0-5 [facility] Basophils/100 WBC (Bld) 1.0 % 0-1 [facility] Bilirubin Test strip Ql (U)O rdered By: Erik Cordova on 12-09-2023 Bilirubin Ql (U) 1 mg/dL Negative [facility] Blood platelet adequacy dete ction by light microscopyOrdered By: Shon Quintero on 12-09-2023 Platelets LM Ql (Bld) MOD DEC ADEQ [facility] Determination of erythrocyte mean corpuscular volume (MCV)Ordered By: Shon Quintero on 12-09-2023 MCV (RBC) [Entitic vol] 81.9 fL 81-99 [facility] Direct bilirubinOrdered By: ED PROVIDER on 12-09-2023 Bilirubin.direct [Mass/Vol] 0.85 mg/dL 0.00-0.30 [facility] Erythrocyte distribution wid th ratioOrdered By: Shon Quintero on 12-09-2023 Erythrocyte distribution width (RBC) [Ratio] 25.8 % 11.6-14.6 [facility] Erythrocyte distribution wid th standard deviationOrdered By: Shon Quintero on 12-09-2023 Erythrocyte distribution width (RBC) [Entitic vol] 75.5 fL 35.1-43.9 [facility] Hematocrit Auto (Bld) [Volum e fraction]Ordered By: Shon Quintero on 12-09-2023 Hematocrit (Bld) [Volume fraction] 29.8 % 37-47 [facility] Immature granulocytes/100 WB C Auto (Bld)Ordered By: Shon Quintero on 12-09-2023 Immature granulocytes/100 WBC (Bld) 0.300 % 0.0-0.9 [facility] Ketones Test strip Ql (U)Ord ered By: Erik Cordova on 12-09-2023 Ketones Ql (U) 5 mg/dl Negative [facility] Mucus LM Ql (Urine sed)Order ed By: Erik Cordova on 12-09-2023 Mucus Ql (Urine sed) 2+ /hpf [place] Nitrite Test strip Ql (U)Ord ered By: Erik Cordova on 12-09-2023 Nitrite Ql (U) Positive Negative [facility] No Panel InformationOrdered By: Erik Cordova on 12-09-2023 0 SEEN /hpf 0-5 [facility] 19.2 SECONDS 11.7-14.9 [facility] 1.6 [facility] 58 U/L 13-75 [facility] No Panel InformationOrdered By: Shon Quintero on 12-09-2023 24.5 pg 27.0-32.0 [facility] 29.9 g/dL 32-36 [facility] 69 K/mm3 150-450 [facility] TNP [facility] 0 % 0-5 [facility] 1+ [facility] 71 mL/min >60 [facility] 86 mL/min >60 [facility] 75.00 ml/min [facility] 11.2 RATIO 10-20 [facility] 5.3 g/dL 2.2-4.2 [facility] 0.5 RATIO 0.9-2.4 [facility] 148 U/L 45-117 [facility] 45 U/L 13-56 [facility] 23.0 mmol/L 21.0-32.0 [facility] Ovalocyte detectionOrdered B y: Shon Quintero on 12-09-2023 Ovalocytes LM Ql (Bld) RARE [facility] Protein Test strip Ql (U)Ord ered By: Erik Cordova on 12-09-2023 Protein Ql (U) 30 mg/dl Negative [facility] RBC Auto (Bld) [#/Vol]Ordere d By: Shon Quintero on 12-09-2023 RBC (Bld) [#/Vol] 3.64 10*6/uL 4.2-5.4 [facility] RBC morphologyOrdered By: Senait Quintero on 12-09-2023 RBC morphology finding Nom (Bld) N CHROM NORMAL NORM C&C [facility] Serum or plasma calcium latrice urement (mass/volume)Ordered By: Shon Quintero on 12-09-2023 Calcium [Mass/Vol] 8.8 mg/dL 8.5-10.1 [facility] Serum or plasma choriogonado tropin detectionOrdered By: Shon Quintero on 12-09-2023 HCG ( test) Ql Negative [facility] Serum or plasma creatinine m easurement (mass/volume)Ordered By: Shon Quintero on 12-09-2023 Creatinine [Mass/Vol] 0.89 mg/dL 0.55-1.02 [facility] Serum or plasma urea nitroge n measurement (mass/volume)Ordered By: Shon Quintero on 12-09-2023 Urea nitrogen [Mass/Vol] 10 mg/dL 7-18 [facility] Squamous epithelial cells de tection in urine sediment by light microscopyOrdered By: Erik Cordova on 12-09-2023 Epithelial cells.squamous LM Ql (Urine sed) 0-5 SEEN /hpf 5-10 [facility] Thin prep Papanicolaou smear with manual screeningOrdered By: Shon Quintero on 12-09-2023 Thin prep Papanicolaou smear with manual screening 1+ [facility] Thin prep Papanicolaou smear with manual screening 2.7 g/dL 3.2-5.0 [facility] Thin prep Papanicolaou smear with manual screening 73 U/L 15-37 [facility] Thin prep Papanicolaou smear with manual screening 4 5-15 [facility] Urine blood detectionOrdered By: Erik Cordova on 12-09-2023 RBC Ql (U) 150 /ul Negative [facility] Urine clarityOrdered By: Marysol Cordova on 12-09-2023 Clarity (U) Clear Clear [facility] Urine color determinationOrd ered By: Erik Cordova on 12-09-2023 Color (U) Yellow Yellow [facility] Urine glucose detectionOrder ed By: Erik Cordova on 12-09-2023 Glucose Ql (U) Normal mg/dl Normal [facility] Urine leukocyte esterase det ection by dipstickOrdered By: Erik Cordova on 12-09-2023 Leukocyte esterase Test strip Ql (U) 100 /ul Negative [facility] Urine pHOrdered By: Erik cabrales on 12-09-2023 pH (U) 6.5 [pH] 5.0 - 8.0 [facility] Urine sediment bacteria coun t by microscopy (number/high power field)Ordered By: Erik Cordova on 12-09-2023 Bacteria LM.HPF (Urine sed) [#/Area] 1 /[HPF] None Seen [facility] Urine specific gravity measu rementOrdered By: Erik Cordova on 12-09-2023 Specific gravity (U) [Rel density] 1.020 1.002-1.030 [facility] Urine urobilinogen measureme ntOrdered By: Erik Cordova on 12-09-2023 Urobilinogen Ql (U) 4 mg/dl Normal [facility] Absolute lymphocyte countOrd ered By: Son Adams on 12-07-2023 Lymphocytes Auto (Unsp spec) [#/Vol] 1.82 10*3/uL 0.83-4.51 [facility] Automated lymphocyte count a s percentage of total leukocytesOrdered By: Son Adams on 12-07-2023 Lymphocytes/100 WBC Auto (Unsp spec) 34.6 % 19-41 [facility] Basophil percentageOrdered B y: Son Adams on 12-07-2023 Basophil percentage 8.4 g/dL 12.0-15.0 [facility] Basophil percentage 101 mg/dL 74-106 [facility] Basophil percentage 6.7 g/dL 6.4-8.2 [facility] Basophil percentage 1.30 mg/dL 0.20-1.00 [facility] Basophil percentage 140 mmol/L 136-145 [facility] Basophil percentage 3.7 mmol/L 3.5-5.1 [facility] Basophil percentage 110 mmol/L 98-107 [facility] Basophils (Bld) [#/Vol] 5.3 10*3/uL 4.4-11.0 [facility] Basophils (Bld) [#/Vol] 2.5 10*3/uL 2.0-7.7 [facility] Basophils/100 WBC (Bld) 47.4 % 47-70 [facility] Basophils/100 WBC (Bld) 12.2 % 0-10 [facility] Basophils/100 WBC (Bld) 4.6 % 0-5 [facility] Basophils/100 WBC (Bld) 0.8 % 0-1 [facility] Blood platelet adequacy dete ction by light microscopyOrdered By: Son Adams on 12-07-2023 Platelets LM Ql (Bld) MKD DEC ADEQ [facility] Determination of erythrocyte mean corpuscular volume (MCV)Ordered By: Son Adams on 12-07-2023 MCV (RBC) [Entitic vol] 80.9 fL 81-99 [facility] Direct bilirubinOrdered By: Son Adams on 12-07-2023 Bilirubin.direct [Mass/Vol] 0.70 mg/dL 0.00-0.30 [facility] Erythrocyte distribution wid th ratioOrdered By: Son Adams on 12-07-2023 Erythrocyte distribution width (RBC) [Ratio] 25.8 % 11.6-14.6 [facility] Erythrocyte distribution wid th standard deviationOrdered By: Son Adams on 12-07-2023 Erythrocyte distribution width (RBC) [Entitic vol] 75.2 fL 35.1-43.9 [facility] Hematocrit Auto (Bld) [Volum e fraction]Ordered By: Son Adams on 12-07-2023 Hematocrit (Bld) [Volume fraction] 27.9 % 37-47 [facility] Hypochromatic red blood cell detectionOrdered By: Son Adams on 12-07-2023 Hypochromia Ql (Bld) 1+ [place] Immature granulocytes/100 WB C Auto (Bld)Ordered By: Son Adasm on 12-07-2023 Immature granulocytes/100 WBC (Bld) 0.400 % 0.0-0.9 [facility] No Panel InformationOrdered By: Son Adams on 12-07-2023 24.3 pg 27.0-32.0 [facility] 30.1 g/dL 32-36 [facility] 59 K/mm3 150-450 [facility] 0 % 0-5 [facility] 1+ [facility] 87 mL/min >60 [facility] 105 mL/min >60 [facility] 87.75 ml/min [facility] 12.0 RATIO 10-20 [facility] 4.5 g/dL 2.2-4.2 [facility] 123 U/L 45-117 [facility] 36 U/L 13-56 [facility] 26.0 mmol/L 21.0-32.0 [facility] RBC Auto (Bld) [#/Vol]Ordere d By: Son Adams on 12-07-2023 RBC (Bld) [#/Vol] 3.45 10*6/uL 4.2-5.4 [facility] Serum or plasma calcium latrice urement (mass/volume)Ordered By: Son Adams on 12-07-2023 Calcium [Mass/Vol] 7.9 mg/dL 8.5-10.1 [facility] Serum or plasma creatinine m easurement (mass/volume)Ordered By: Son Adams on 12-07-2023 Creatinine [Mass/Vol] 0.75 mg/dL 0.55-1.02 [facility] Serum or plasma urea nitroge n measurement (mass/volume)Ordered By: Son Adams on 12-07-2023 Urea nitrogen [Mass/Vol] 9 mg/dL 7-18 [facility] Thin prep Papanicolaou smear with manual screeningOrdered By: Son Adams on 12-07-2023 Thin prep Papanicolaou smear with manual screening 2.2 g/dL 3.2-5.0 [facility] Thin prep Papanicolaou smear with manual screening 53 U/L 15-37 [facility] Thin prep Papanicolaou smear with manual screening 4 5-15 [facility] No Panel InformationOrdered By: Son Adams on 12-06-2023 9.8 fl 6.2-12.0 [facility] 20.5 SECONDS 11.7-14.9 [facility] 1.8 [facility] Anaerobic cultureOrdered By: Son Adams on 12-05-2023 Bacteria identified Anaer cx Nom (Unsp spec) No growth in 5 days. [facility] Basophil percentageOrdered B y: Son Adams on 12-05-2023 Basophil percentage 2.8 mg/dL 2.5-4.9 [facility] Basophil percentageOrdered B y: Sowmya White on 12-05-2023 Basophil percentage 37.0 umol/L 32 [place] Body fluid albumin measureme nt by colorimetric method (mass/volume)Ordered By: Son Adams on 12-05-2023 Albumin Ql (Body fld) 0.7 g/dL Not Estab. [facility] Body fluid amylase measureme nt (enzymatic activity/volume)Ordered By: Son Adams on 12-05-2023 Amylase (Body fld) [Catalytic activity/Vol] 13 U/L . [facility] Body fluid appearanceOrdered By: Son Adams on 12-05-2023 Appearance (Body fld) CLEAR [facility] Body fluid color determinati onOrdered By: Son Adams on 12-05-2023 Color (Body fld) LT YEL [facility] Body fluid leukocytes count (number/volume)Ordered By: Son Adams on 12-05-2023 WBC (Body fld) [#/Vol] 0.136 10*3/uL [facility] Body fluid lymphocytes/100 l eukocytesOrdered By: Son Adams on 12-05-2023 Lymphocytes/100 WBC (Body fld) 27 % [facility] Body fluid macrophage countO rdered By: Son Adams on 12-05-2023 Macrophages (Body fld) [#/Vol] 69 % [facility] Body fluid mesothelial cell percentageOrdered By: oSn Adams on 12-05-2023 Mesothelial cells/100 WBC (Body fld) 4 % [facility] Body fluid mononuclear cell percentageOrdered By: Son Adams on 12-05-2023 Mononuclear cells/100 WBC (Body fld) 95.6 % [facility] Body fluid polymorphonuclear leukocyte countOrdered By: Son Adams on 12-05-2023 Polymorphonuclear cells (Body fld) [#/Vol] 0.006 10^3/uL [facility] Body fluid total cell countO rdered By: Son Adams on 12-05-2023 Cells Counted Total (Body fld) [#] 0.189 10^3/ul 0.000-0.000 [facility] Cytology report of Body flui d Cyto stainOrdered By: Son Adams on 12-05-2023 Cytology report Cyto stain Doc (Body fld) SEE PATHOLOGY REPORT [facility] Gram stain for investigation of transfusion reactionOrdered By: Son Adams on 12-05-2023 Microscopic observation Gram stain Nom (Unsp spec) [facility] No Panel InformationOrdered By: Son Adams on 12-05-2023 101 /mm3 [facility] 4.4 % [facility] 0.130 10^3/uL [facility] SEE COMMENT [facility] 95 mg/dL 40-70 [facility] Culture exhibits no growth. [facility] No Panel InformationOrdered By: Sowmya White on 12-05-2023 0.4 RATIO 0.9-2.4 [facility] Pathologist interpretation o f Body fluid testsOrdered By: Son Adams on 12-05-2023 Pathologist interpretation (Body fld) [Interp] May follow [facility] Pathologist interpretation (Body fld) [Interp] Reviewed [facility] Specimen source identificati on of body fluidOrdered By: Son Adams on 12-05-2023 Specimen source Nom (Body fld) OTHER [facility] Absolute lymphocyte countOrd ered By: Mica Díaz on 12-04-2023 Lymphocytes Auto (Unsp spec) [#/Vol] 1.43 10*3/uL 0.83-4.51 [facility] Amorphous sediment detection in urine sediment by light microscopyOrdered By: Mica Díaz on 12-04-2023 Amorphous sediment LM Ql (Urine sed) 1+ URATE [facility] Automated lymphocyte count a s percentage of total leukocytesOrdered By: Mica Díaz on 12-04-2023 Lymphocytes/100 WBC Auto (Unsp spec) 23.3 % 19-41 [facility] Basophil percentageOrdered B y: Mica Díaz on 12-04-2023 Basophil percentage 25-50 SEEN /hpf 0-5 [facility] Ammonia (P) [Moles/Vol] 45.0 umol/L 11-32 [facility] Basophils/100 WBC (Bld) 1.0 % 0-1 [facility] Bilirubin [Mass/Vol] 2.10 mg/dL 0.20-1.00 [place] Comment on above: For patients on eltr ombopag therapy, use of Dimension [place] TBIL is not recommended. Chloride [Moles/Vol] 110 mmol/L 98-107 [place] Eosinophils/100 WBC (Bld) 2.3 % 0-5 [facility] Glucose [Mass/Vol] 117 mg/dL 74-106 [facility] Comment on above: Fasting Glucose resu lt from 100 to 125 mg/dL suggests IMPAIRED HOMEOSTASIS per A.D.A. criteria. Hemoglobin (Bld) [Mass/Vol] 8.9 g/dL 12.0-15.0 [facility] Monocytes/100 WBC (Bld) 10.7 % 0-10 [facility] Neutrophils (Bld) [#/Vol] 3.8 10*3/uL 2.0-7.7 [facility] Neutrophils/100 WBC (Bld) 62.4 % 47-70 [facility] Potassium [Moles/Vol] 4.0 mmol/L 3.5-5.1 [facility] Protein [Mass/Vol] 7.3 g/dL 6.4-8.2 [facility] Sodium [Moles/Vol] 142 mmol/L 136-145 [facility] WBC (Bld) [#/Vol] 6.1 10*3/uL 4.4-11.0 [facility] Basophil percentageOrdered B y: White on 12-04-2023 Basophil percentage 2.3 mg/dL 2.5-4.9 [facility] Bilirubin Test strip Ql (U)O rdered By: Mica Díaz on 12-04-2023 Bilirubin Ql (U) 3 mg/dL Negative [facility] Comment on above: COLOR OF URINE MAY A FFECT DIPSTICK RESULTS. Blood manual differential co mment interpretation (narrative result)Ordered By: Mica Díaz on 12-04-2023 Manual differential comment Eliezer (Bld) [Interp] SCANNED [facility] Determination of erythrocyte mean corpuscular volume (MCV)Ordered By: Mica Díaz on 12-04-2023 MCV (RBC) [Entitic vol] 82.1 fL 81-99 [facility] Erythrocyte distribution wid th ratioOrdered By: Mica Díaz on 12-04-2023 Erythrocyte distribution width (RBC) [Ratio] 27.1 % 11.6-14.6 [facility] Erythrocyte distribution wid th standard deviationOrdered By: Mica Díaz on 12-04-2023 Erythrocyte distribution width (RBC) [Entitic vol] 79.4 fL 35.1-43.9 [facility] Hematocrit Auto (Bld) [Volum e fraction]Ordered By: Mica Díaz on 12-04-2023 Hematocrit (Bld) [Volume fraction] 30.2 % 37-47 [facility] Hypochromatic red blood cell detectionOrdered By: Mica Díaz on 12-04-2023 Hypochromia Ql (Bld) 1+ [place] Immature granulocytes/100 WB C Auto (Bld)Ordered By: Mica Díaz on 12-04-2023 Immature granulocytes/100 WBC (Bld) 0.300 % 0.0-0.9 [facility] Comment on above: IG% - Immature Granu locytes (promyelocytes, myelocytes and metamyelocytes) > 1% indicates that a LEFT SHIFT is Present. Ketones Test strip Ql (U)Ord ered By: Mica Díaz on 12-04-2023 Ketones Ql (U) 15 mg/dl Negative [facility] Laboratory - Chemistry and C hemistry - challengeOrdered By: Mica Díaz on 12-04-2023 Albumin/Globulin [Mass ratio] 0.4 {ratio} 0.9-2.4 [facility] ALP [Catalytic activity/Vol] 143 U/L 45-117 [facility] ALT [Catalytic activity/Vol] 47 U/L 13-56 [facility] CO2 [Moles/Vol] 27.0 mmol/L 21.0-32.0 [facility] Globulin (S) [Mass/Vol] 5.1 g/dL 2.2-4.2 [facility] Lipase [Catalytic activity/Vol] 30 U/L 13-75 [facility] Comment on above: Please note:LIPASE r evised reference range effective 23. New Lipase methodology. Expected to produce lower values than the previous assay method. NEW Reference Range: 13 - 75 U/L Urea nitrogen/Creatinine [Mass ratio] 12.2 mg/mg 10-20 [facility] Laboratory - Chemistry and C hemistry - challengeOrdered By: Sowmya Mirza on 12-04-2023 Magnesium [Mass/Vol] 1.6 mg/dL 1.6-2.6 [place] [facility] - CoagulationOrde red By: Mica Díaz on 12-04-2023 INR Coag (Bld) [Relative time] 1.7 {INR} [facility] PT Coag (PPP) [Time] 20.0 s 11.7-14.9 [place] [facility] - Hematology and Cell countsOrdered By: Mica Díaz on 12-04-2023 Anisocytosis Ql (Bld) 2+ [facility] MCH (RBC) [Entitic mass] 24.2 pg 27.0-32.0 [facility] MCHC (RBC) [Mass/Vol] 29.5 g/dL 32-36 [facility] Nucleated RBC/100 WBC (Bld) [Ratio] 0 % 0-5 [facility] Platelet mean volume (Bld) [Entitic vol] 9.5 fL 6.2-12.0 [facility] Platelets (Bld) [#/Vol] 87 10*3/uL 150-450 [facility] Macrocytes detectionOrdered By: Mica Díaz on 12-04-2023 Macrocytes Ql (Bld) 1+ [facility] Mucus LM Ql (Urine sed)Order ed By: Mica Díaz on 12-04-2023 Mucus Ql (Urine sed) 0 SEEN /hpf [facility] Nitrite Test strip Ql (U)Ord ered By: Mica Díaz on 12-04-2023 Nitrite Ql (U) Positive Negative [facility] No Panel InformationOrdered By: Mica Díaz on 12-04-2023 Urine RBC 5-10 SEEN /hpf 0-5 [facility] 5-10 SEEN /hpf 0-5 [facility] Estimated Creatinine Clearance Calc 83.21 ml/min [facility] Estimated GFR (MDRD) Amer 95 mL/min >60 [facility] Comment on above: GFR Calc Estimated GFR (MDRD) Non-Af Amer 79 mL/min >60 [facility] Comment on above: Non- GFR Calc 30 U/L 13-75 [facility] No Panel InformationOrdered By: Sowmya Mirza on 12-04-2023 [facility] Negative < 300 ng/mL [facility] Positive < 50 ng/mL [facility] 1.6 mg/dL 1.6-2.6 [facility] Protein Test strip Ql (U)Ord ered By: Mica Díaz on 12-04-2023 Protein Ql (U) 30 mg/dl Negative [facility] RBC Auto (Bld) [#/Vol]Ordere d By: Mica Díaz on 12-04-2023 RBC (Bld) [#/Vol] 3.68 10*6/uL 4.2-5.4 [facility] Serum or plasma calcium latrice urement (mass/volume)Ordered By: Mica Díaz on 12-04-2023 Calcium [Mass/Vol] 8.4 mg/dL 8.5-10.1 [facility] Serum or plasma creatinine m easurement (mass/volume)Ordered By: Mica Díaz on 12-04-2023 Creatinine [Mass/Vol] 0.82 mg/dL 0.55-1.02 [facility] Comment on above: The validity of the calculated GFR & GFRAA in patients over 70 years has not been determined. Clinical correlation is essential. Serum or plasma urea nitroge n measurement (mass/volume)Ordered By: Mica Díaz on 12-04-2023 Urea nitrogen [Mass/Vol] 10 mg/dL 7-18 [facility] Squamous epithelial cells de tection in urine sediment by light microscopyOrdered By: Mica Díaz on 12-04-2023 Epithelial cells.squamous LM Ql (Urine sed) 0-5 SEEN /hpf 5-10 [facility] Target cell detectionOrdered By: Mica Díaz on 12-04-2023 Target cells LM Ql (Bld) RARE [facility] Thin prep Papanicolaou smear with manual screeningOrdered By: Mica Díaz on 12-04-2023 Thin prep Papanicolaou smear with manual screening 1+ [facility] Thin prep Papanicolaou smear with manual screening 2.2 g/dL 3.2-5.0 [facility] Thin prep Papanicolaou smear with manual screening 58 U/L 15-37 [facility] Thin prep Papanicolaou smear with manual screening 5 5-15 [facility] Urine blood detectionOrdered By: Mica Díaz on 12-04-2023 RBC Ql (U) 50 /ul Negative [facility] Urine clarityOrdered By: Daniel Díaz on 12-04-2023 Clarity (U) Sl. Cloudy Clear [facility] Urine color determinationOrd ered By: Mica Díaz on 12-04-2023 Color (U) Yellow Yellow [facility] Urine glucose detectionOrder ed By: Mica Díaz on 12-04-2023 Glucose Ql (U) Normal mg/dl Normal [facility] Urine leukocyte esterase det ection by dipstickOrdered By: Mica Díaz on 12-04-2023 Leukocyte esterase Test strip Ql (U) 500 /ul Negative [facility] Urine pHOrdered By: Zac Díaz on 12-04-2023 pH (U) 6.5 [pH] 5.0 - 8.0 [facility] Urine phencyclidine (PCP) de tectionOrdered By: Sowmya White on 12-04-2023 Phencyclidine Ql (U) Negative < 25 ng/mL [place] Urine sediment bacteria coun t by microscopy (number/high power field)Ordered By: Mica Díaz on 12-04-2023 Bacteria LM.HPF (Urine sed) [#/Area] RARE /hpf None Seen [facility] Urine specific gravity measu rementOrdered By: Mica Díaz on 12-04-2023 Specific gravity (U) [Rel density] 1.015 1.002-1.030 [facility] Urine urobilinogen measureme ntOrdered By: Mica Díaz on 12-04-2023 Urobilinogen Ql (U) 8 mg/dl Normal [facility] Basic metabolic 2000 panelon 11-23-2023 Anion gap [Moles/Vol] mmol/L Low 5-16 [facility] Comment on above: Order Comment: Speci men Type: BLOOD SPECIMENOrdering Facility: [facility] Address: [address] [place] [address] Performed By: #### 2 432-2, ####[facility] LABORATORYCLIA [id number] [place] [id number] [place] Calcium [Mass/Vol] 9.3 mg/dL Normal 8.5-10.5 [facility] Comment on above: Order Comment: Speci men Type: BLOOD SPECIMENOrdering Facility: [facility] Address: [address] [place] [address] Performed By: #### 2 4320-2, ####[facility] LABORATORYCLIA [id number] [place] [id number] [place] Chloride [Moles/Vol] 107 mmol/L Normal 98-107 [facility] Comment on above: Order Comment: Speci men Type: BLOOD SPECIMENOrdering Facility: [facility] Address: [address] [place] [address] Performed By: #### 2 432-2, ####[facility] LABORATORYCLIA [id number] [place] [address] [place] CO2 [Moles/Vol] 28 mmol/L Normal 21-32 [facility] Comment on above: Order Comment: Speci men Type: BLOOD SPECIMENOrdering Facility: [facility] Address: [address] [place] [address] Performed By: #### 2 4321-2, 65743-5 ####[facility] LABORATORYCLIA [id number] [place] [id number] [place] Creatinine [Mass/Vol] 0.78 mg/dL Normal 0.51-0.95 [facility] Comment on above: Order Comment: Speci men Type: BLOOD SPECIMENOrdering Facility: [facility] Address: [address] [place] [address] Result Comment: Tamie ents receiving either N-Acetylcysteine (NAC) or Metamizole prior to venipuncture, may have falsely depressed results. Performed By: #### 2 4321-2, ####[facility] LABORATORYCLIA [id number] [place] [id number] [facility] Creatinine and Glomerular filtration rate.predicted panel (S/P/Bld) 93 mL/min/1.73m??? Normal >=60 [facility] Comment on above: Order Comment: Yeseniai cydney Type: BLOOD SPECIMENOrdering Facility: [facility] Address: [address] [place] [address] Result Comment: Connie mated Glomerular Filtration Rate [...] actual GFR. Performed By: #### 2 4321-2, 45281-7 ####[facility]ORATORYCLIA [id number] [place] [id number] [place] Glucose [Mass/Vol] 95 mg/dL Normal 70-100 [facility] Comment on above: Order Comment: Cole lamas Type: BLOOD SPECIMENOrdering Facility: [facility] Address: [address] [place] [address] Result Comment: The [place] [employer] (ADA) provides guidance for cutoff [...] Standards of Medical Care in Diabetes 2016, [place] [employer]. Diabetes Care. 2016.39(Suppl 1). Results may be falsely elevated after the administration of Sulfapyridine. Results may be falsely depressed after the administration of Sulfasalazine. Performed By: #### 2 4320-10, ####[facility] LABORATORYCLIA [id number] [place] [address] [place] Potassium [Moles/Vol] 4.2 mmol/L Normal 3.5-5.1 [facility] Comment on above: Order Comment: Speci men Type: BLOOD SPECIMENOrdering Facility: [facility] Address: [address] [place] [address] Performed By: #### 2 ####[facility] LABORATORYCLIA [id number] [place] [address] [place] Sodium [Moles/Vol] 137 mmol/L Normal 136-145 [facility] Comment on above: Order Comment: Speci men Type: BLOOD SPECIMENOrdering Facility: [facility] Address: [address] [place] [address] Performed By: #### 2 ####[facility] LABORATORYCLIA [id number] [place] [id number] [place] Urea nitrogen [Mass/Vol] 18 mg/dL Normal 7-26 [facility] Comment on above: Order Comment: Speci men Type: BLOOD SPECIMENOrdering Facility: [facility] Address: [address] [place] [address] Performed By: #### 2 ####[facility] LABORATORYCLIA [id number] [place] [address] [place] CBC W Auto Differential pane l (Bld)on 11-23-2023 Anisocytosis Ql (Bld) Present Normal [facility] Comment on above: Order Comment: Speci men Type: BLOOD SPECIMENOrdering Facility: [facility] Address: [address] [place] [address] Performed By: #### 5 7021-8 ####[facility] LABORATORYCLIA [id number] [place] [address] [place] Band form neutrophils/100 WBC (Bld) 1.0 % Normal [facility] Comment on above: Order Comment: Speci men Type: BLOOD SPECIMENOrdering Facility: [facility] Address: [address] [place] [address] Performed By: #### 5 7021-8 ####[facility] LABORATORYCLIA [id number] [address] [place] Basophils (Bld) [#/Vol] 0.00 10*3/uL Normal <0.11 [facility] Comment on above: Order Comment: Speci men Type: BLOOD SPECIMENOrdering Facility: [facility] Address: [address] [place] [address] Performed By: #### 5 7021-8 ####[facility] LABORATORYCLIA [id number] [address] Basophils/100 WBC (Bld) 0.0 % Normal [facility] Comment on above: Order Comment: Speci men Type: BLOOD SPECIMENOrdering Facility: [facility] Address: [address] [place] [address] Performed By: #### 5 7021-8 ####[facility] LABORATORYCLIA [id number] [address] [place] Differential cell count method Nom (Bld) Manual Normal [facility] Comment on above: Order Comment: Speci men Type: BLOOD SPECIMENOrdering Facility: [facility] Address: [address] [place] [address] Performed By: #### 5 7021-8 ####[facility] LABORATORYCLIA [id number] [place] [address] [place] Eosinophils (Bld) [#/Vol] 0.13 10*3/uL Normal <0.46 [facility] Comment on above: Order Comment: Speci men Type: BLOOD SPECIMENOrdering Facility: [facility] Address: [address] [place] [address] Performed By: #### 5 7021-8 ####[facility]ORATORYCLIA [id number] [place] [address] [place] Eosinophils/100 WBC (Bld) 1.0 % Normal [facility] Comment on above: Order Comment: Speci men Type: BLOOD SPECIMENOrdering Facility: [facility] Address: [address] [place] [address] Performed By: #### 5 7021-8 ####[facility] LABORATORYCLIA [id number] [address] [place] Erythrocyte distribution width (RBC) [Ratio] 26.2 % High 11.5-15.0 [facility] Comment on above: Order Comment: Speci men Type: BLOOD SPECIMENOrdering Facility: [facility] Address: [address] [place] [address] Performed By: #### 5 7021-8 ####[facility]ORATORYCLIA [id number] [address] [place] Hematocrit (Bld) [Volume fraction] 27.9 % Low 36.0-46.0 [facility] Comment on above: Order Comment: Speci men Type: BLOOD SPECIMENOrdering Facility: [facility] Address: [address] [place] [address] Performed By: #### 5 7021-8 ####[facility]ORATORYCLIA [id number] [place] [id number] [place] Hemoglobin (Bld) [Mass/Vol] 9.0 g/dL Low 11.5-15.5 [facility] Comment on above: Order Comment: Speci men Type: BLOOD SPECIMENOrdering Facility: [facility] Address: [address] [place] [address] Performed By: #### 5 7021-8 ####[facility]ORATORYCLIA [id number] [address] Lymphocytes (Bld) [#/Vol] 2.53 10*3/uL Normal 1.00-4.00 [facility] Comment on above: Order Comment: Speci men Type: BLOOD SPECIMENOrdering Facility: [facility] Address: [address] [place] [address] Performed By: #### 5 7021-8 ####[facility]ORATORYCLIA [id number] [address] Lymphocytes/100 WBC (Bld) 19.0 % Normal [facility] Comment on above: Order Comment: Speci men Type: BLOOD SPECIMENOrdering Facility: [facility] Address: [address] [place] [address] Performed By: #### 5 7021-8 ####[facility]ORATORYCLIA [id number] [address] [place] MCH (RBC) [Entitic mass] 24.3 pg Low 26.0-34.0 [facility] Comment on above: Order Comment: Speci men Type: BLOOD SPECIMENOrdering Facility: [facility] Address: [address] [place] [address] Performed By: #### 5 7021-8 ####[facility]ORATORYCLIA [id number] [address] [place] MCHC (RBC) [Mass/Vol] 32.3 g/dL Normal 30.5-36.0 [facility] Comment on above: Order Comment: Speci men Type: BLOOD SPECIMENOrdering Facility: [facility] Address: [address] [place] [address] Performed By: #### 5 7021-8 ####[facility] LABORATORYCLIA [id number] [place] [address] [place] MCV (RBC) [Entitic vol] 75.4 fL Low 80.0-100.0 [facility] Comment on above: Order Comment: Speci men Type: BLOOD SPECIMENOrdering Facility: [facility] Address: [address] [place] [address] Performed By: #### 5 7021-8 ####[facility]ORATORYCLIA [id number] [place] [address] [place] Monocytes (Bld) [#/Vol] 1.33 10*3/uL High <0.87 [facility] Comment on above: Order Comment: Speci men Type: BLOOD SPECIMENOrdering Facility: [facility] Address: [address] [place] [address] Performed By: #### 5 7021-8 ####[facility]ORATORYCLIA [id number] [address] [place] Monocytes/100 WBC (Bld) 10.0 % Normal [facility] Comment on above: Order Comment: Speci men Type: BLOOD SPECIMENOrdering Facility: [facility] Address: [address] [place] [address] Performed By: #### 5 7021-8 ####[facility]ORATORYCLIA [id number] [place] [address] [place] Neutrophils (Bld) [#/Vol] 9.31 10*3/uL High 1.45-7.50 [facility] Comment on above: Order Comment: Speci men Type: BLOOD SPECIMENOrdering Facility: [facility] Address: [address] [place] [address] Performed By: #### 5 7021-8 ####[facility]ORATORYCLIA [id number] [place] [address] [place] Neutrophils/100 WBC (Bld) 69.0 % Normal [facility] Comment on above: Order Comment: Speci men Type: BLOOD SPECIMENOrdering Facility: [facility] Address: [address] [place] [address] Performed By: #### 5 7021-8 ####[facility]ORATORYCLIA [id number] [place] [address] [place] Nucleated RBC (Bld) [#/Vol] 10*3/uL Normal <0.01 [facility] Comment on above: Order Comment: Speci men Type: BLOOD SPECIMENOrdering Facility: [facility] Address: [address] [place] [address] Performed By: #### 5 7021-8 ####[facility]ORATORYCLIA [id number] [place] [address] [place] Nucleated RBC/100 WBC (Bld) [Ratio] 0.0 /100 WBC Normal [facility] Comment on above: Order Comment: Speci men Type: BLOOD SPECIMENOrdering Facility: [facility] Address: [address] [place] [address] Performed By: #### 5 7021-8 ####[facility]ORATORYCLIA [id number] [place] [address] [place] Ovalocytes LM Ql (Bld) Few Normal [facility] Comment on above: Order Comment: Speci men Type: BLOOD SPECIMENOrdering Facility: [facility] Address: [address] [place] [address] Performed By: #### 5 7021-8 ####[facility]ORATORYCLIA [id number] [place] [address] [place] Platelet mean volume (Bld) [Entitic vol] 10.0 fL Normal 9.0-12.7 [facility] Comment on above: Order Comment: Speci men Type: BLOOD SPECIMENOrdering Facility: [facility] Address: [address] [place] [address] Performed By: #### 5 7021-8 ####[facility]ORATORYCLIA [id number] [place] [address] [place] Platelets (Bld) [#/Vol] 107 10*3/uL Low 150-400 [facility] Comment on above: Order Comment: Speci men Type: BLOOD SPECIMENOrdering Facility: [facility] Address: [address] [place] [address] Result Comment: No c lot detected. Performed By: #### 5 7021-8 ####[facility]ORATORYCLIA [id number] [address] Platelets Estimate (Bld) [#/Vol] Decreased Normal [facility] Comment on above: Order Comment: Speci men Type: BLOOD SPECIMENOrdering Facility: [facility] Address: [address] [place] [address] Performed By: #### 5 7021-8 ####[facility]ORATORYCLIA [id number] [address] Polychromasia LM Ql (Bld) Slight Normal [facility] Comment on above: Order Comment: Speci men Type: BLOOD SPECIMENOrdering Facility: [facility] Address: [address] [place] [address] Performed By: #### 5 7021-8 ####[facility]ORATORYCLIA [id number] [address] [place] RBC (Bld) [#/Vol] 3.70 10*6/uL Low 3.90-5.20 [facility] Comment on above: Order Comment: Speci men Type: BLOOD SPECIMENOrdering Facility: [facility] Address: [address] [place] [address] Performed By: #### 5 7021-8 ####[facility]ORATORYCLIA [id number] [address] RED CELL MORPH Reviewed: see result s of individual morphologies Normal [facility] Comment on above: Order Comment: Speci men Type: BLOOD SPECIMENOrdering Facility: [facility] Address: [address] [place] [address] Performed By: #### 5 7021-8 ####[facility]ORATORYCLIA [id number] [place] [address] [place] [facility] [place] WBC (Bld) [#/Vol] 13.30 10*3/uL High 3.70-11.00 [facility] Comment on above: Order Comment: Speci men Type: BLOOD SPECIMENOrdering Facility: [facility] Address: [address] [place] [address] Performed By: #### 5 7021-8 ####[facility] LABORATORYCLIA [id number] [place] [address] [facility] CNDSon 11-23-2023 CNDS HNO ID: [id number] Author: JEROME AMAYA DO Service: Hospital Medicine [...] year old female who presented to an [facility] emergency department yesterday, November 17, 2023, for further evaluation of abdominal pain and distention. Patient has known cirrhosis. Recently, she has been evaluated multiple times at [facility] for similar symptoms. Paracentesis has been [...] IV Rocephin tomorrow, patient had paracentesis in [facility] without any significant results, he had paracentesis [...] =CHILDHOOD Bupropion (more content not included)... Normal [facility] Magnesium SerPl-mCncon 11-23 Magnesium [Mass/Vol] 1.7 mg/dL Normal 1.6-2.6 [facility] Comment on above: Order Comment: Speci men Type: BLOOD SPECIMENOrdering Facility: [facility] Address: [address] [place] [address] Performed By: #### 2 4321-2, 87544-3 ####[facility]ORATORYCLIA [id number] [place] [address] [place] Basic metabolic 2000 panelon 11-22-2023 Anion gap [Moles/Vol] 3 mmol/L Low 5-16 [facility] Comment on above: Order Comment: Speci men Type: ARTERIAL BLOOD SPECIMEN [facility] Address: [address] [place] [address] Performed By: #### A LLBG #### [facility] CLIA [id number] [address] [place] [address] [place] Calcium [Mass/Vol] 9.7 mg/dL Normal 8.5-10.5 [facility] Comment on above: Order Comment: Speci men Type: ARTERIAL BLOOD SPECIMEN [facility] Address: [address] [place] [address] Performed By: #### A LLBG #### [facility] CLIA [id number] [address] [place] [address] [place] Chloride [Moles/Vol] 105 mmol/L Normal 98-107 [facility] Comment on above: Order Comment: Speci men Type: ARTERIAL BLOOD SPECIMEN [facility] Address: [address] [place] [address] Performed By: #### A LLBG #### [facility] CLIA [id number] [address] [place] [address] [place] CO2 [Moles/Vol] 28 mmol/L Normal 21-32 [facility] Comment on above: Order Comment: Speci men Type: ARTERIAL BLOOD SPECIMEN [facility] Address: [address] [place] [address] Performed By: #### A LLBG #### [facility] [id number] [address] [place] [address] [place] Creatinine [Mass/Vol] 0.81 mg/dL Normal 0.51-0.95 [facility] Comment on above: Order Comment: Speci men Type: ARTERIAL BLOOD SPECIMEN [facility] Address: [address] [place] [address] Result Comment: Tamie ents receiving either N-Acetylcysteine (NAC) or Metamizole prior to venipuncture, may have falsely depressed results. Performed By: #### A LLBG #### [facility] [id number] [address] [place] [address] Creatinine and Glomerular filtration rate.predicted panel (S/P/Bld) 89 mL/min/1.73m??? Normal >=60 [facility] Comment on above: Order Comment: Speci men Type: ARTERIAL BLOOD SPECIMEN [facility] Address: [address] [place] [address] Result Comment: Connie mated Glomerular Filtration Rate [...] GFR. Performed By: #### A LLBG #### [facility] [place] [id number] [address] [place] [address] [place] Glucose [Mass/Vol] 92 mg/dL Normal 70-100 [facility] Comment on above: Order Comment: Speci men Type: ARTERIAL BLOOD SPECIMEN [facility] Address: [address] [place] [address] Result Comment: The [place] Diabetes Association (ADA) provides guidance for cutoff [...] Standards of Medical Care in Diabetes 2016, [place] [employer]. Diabetes Care. 2016.39(Suppl 1). Results may be falsely elevated after the administration of Sulfapyridine. Results may be falsely depressed after the administration of Sulfasalazine. Performed By: #### A LLBG #### [facility] CLIA [id number] [address] [place] [address] [place] Potassium [Moles/Vol] 4.4 mmol/L Normal 3.5-5.1 [facility] Comment on above: Order Comment: Speci men Type: ARTERIAL BLOOD SPECIMEN [facility] Address: [address] [place] [address] Performed By: #### A LLBG #### [facility] CLIA [id number] [address] [place] [address] [place] Sodium [Moles/Vol] 136 mmol/L Normal 136-145 [facility] Comment on above: Order Comment: Speci men Type: ARTERIAL BLOOD SPECIMEN [facility] Address: [address] [place] [address] Performed By: #### A LLBG #### [facility] CLIA [id number] [address] [place] [address] [place] Urea nitrogen [Mass/Vol] 18 mg/dL Normal 7-26 [facility] Comment on above: Order Comment: Speci men Type: ARTERIAL BLOOD SPECIMEN [facility] Address: [address] [place] [address] Performed By: #### A LLBG #### [facility] CLIA [id number] [address] [place] [address] [place] CBC W Auto Differential pane l (Bld)on 11-22-2023 Anisocytosis Ql (Bld) Present Normal [facility] Comment on above: Order Comment: Speci men Type: ARTERIAL BLOOD SPECIMEN [facility] Address: [address] [place] [address] Performed By: #### A LLBG #### [facility] CLIA [id number] [address] [place] [address] [place] Basophils (Bld) [#/Vol] 0.00 10*3/uL Normal <0.11 [facility] Comment on above: Order Comment: Speci men Type: ARTERIAL BLOOD SPECIMEN [facility] Address: [address] [place] [address] Performed By: #### A LLBG #### [facility] CLIA [id number] [address] [place] [address] [place] Basophils/100 WBC (Bld) 0.0 % Normal [facility] Comment on above: Order Comment: Speci men Type: ARTERIAL BLOOD SPECIMEN [facility] Address: [address] [place] [address] Performed By: #### A LLBG #### [facility] CLIA [id number] [address] [place] [address] [place] Differential cell count method Nom (Bld) Manual Normal [facility] Comment on above: Order Comment: Speci men Type: ARTERIAL BLOOD SPECIMEN [facility] Address: [address] [place] [address] Performed By: #### A LLBG #### [facility] CLIA [id number] [address] [place] [address] [place] DIMORPHIC POPULATION Present Normal [facility] Comment on above: Order Comment: Speci men Type: ARTERIAL BLOOD SPECIMEN [facility] Address: [address] [place] [address] Performed By: #### A LLBG #### [facility] CLIA [id number] [address] [place] [address] [place] Eosinophils (Bld) [#/Vol] 0.00 10*3/uL Normal <0.46 [facility] Comment on above: Order Comment: Speci men Type: ARTERIAL BLOOD SPECIMEN [facility] Address: [address] [place] [address] Performed By: #### A LLBG #### [facility] CLIA [id number] [address] [place] [address] [place] Eosinophils/100 WBC (Bld) 0.0 % Normal [facility] Comment on above: Order Comment: Speci men Type: ARTERIAL BLOOD SPECIMEN [facility] Address: [address] [place] [address] Performed By: #### A LLBG #### [facility] CLIA [id number] [address] [place] [address] [place] Erythrocyte distribution width (RBC) [Ratio] 26.1 % High 11.5-15.0 [facility] Comment on above: Order Comment: Speci men Type: ARTERIAL BLOOD SPECIMEN [facility] Address: [address] [place] [address] Performed By: #### A LLBG #### [facility] CLIA [id number] [address] [place] [address] [place] Hematocrit (Bld) [Volume fraction] 30.3 % Low 36.0-46.0 [facility] Comment on above: Order Comment: Speci men Type: ARTERIAL BLOOD SPECIMEN [facility]: [facility] Address: [address] [place] [address] Performed By: #### A LLBG #### [facility] CLIA [id number] [address] [place] [address] [place] Hemoglobin (Bld) [Mass/Vol] 9.5 g/dL Low 11.5-15.5 [facility] Comment on above: Order Comment: Speci men Type: ARTERIAL BLOOD SPECIMEN [facility]: [facility] Address: [address] [place] [address] Performed By: #### A LLBG #### [facility] CLIA [id number] [address] [place] [address] [place] Lymphocytes (Bld) [#/Vol] 2.01 10*3/uL Normal 1.00-4.00 [facility] Comment on above: Order Comment: Speci men Type: ARTERIAL BLOOD SPECIMEN [facility]: [facility] Address: [address] [place] [address] Performed By: #### A LLBG #### [facility] CLIA [id number] [address] [place] [address] Lymphocytes/100 WBC (Bld) 16.0 % Normal [facility] Comment on above: Order Comment: Speci men Type: ARTERIAL BLOOD SPECIMEN [facility]: [facility] Address: [address] [place] [address] Performed By: #### A LLBG #### [facility] CLIA [id number] [address] [place] [address] [place] MCH (RBC) [Entitic mass] 24.4 pg Low 26.0-34.0 [facility] Comment on above: Order Comment: Speci men Type: ARTERIAL BLOOD SPECIMEN [facility]: [facility] Address: [address] [place] [address] Performed By: #### A LLBG #### [facility] CLIA [id number] [address] [place] [address] [place] MCHC (RBC) [Mass/Vol] 31.4 g/dL Normal 30.5-36.0 [facility] Comment on above: Order Comment: Speci men Type: ARTERIAL BLOOD SPECIMEN [facility]: [facility] Address: [address] [place] [address] Performed By: #### A LLBG #### [facility] CLIA [id number] [address] [place] [address] [place] MCV (RBC) [Entitic vol] 77.7 fL Low 80.0-100.0 [facility] Comment on above: Order Comment: Speci men Type: ARTERIAL BLOOD SPECIMEN [facility]: [facility] Address: [address] [place] [address] Performed By: #### A LLBG #### [facility] CLIA [id number] [address] [place] [address] [place] Monocytes (Bld) [#/Vol] 0.88 10*3/uL High <0.87 [facility] Comment on above: Order Comment: Speci men Type: ARTERIAL BLOOD SPECIMEN [facility]ing Facility: [facility] Address: [address] [place] [address] Performed By: #### A LLBG #### [facility] CLIA [id number] [address] [place] [address] [place] Monocytes/100 WBC (Bld) 7.0 % Normal [facility] Comment on above: Order Comment: Speci men Type: ARTERIAL BLOOD SPECIMEN [facility]ing Facility: [facility] Address: [address] [place] [address] Performed By: #### A LLBG #### [facility] CLIA [id number] [address] [place] [address] [place] MYELO% 1.0 % Normal [facility] Comment on above: Order Comment: Speci men Type: ARTERIAL BLOOD SPECIMEN [facility]ing Facility: [facility] Address: [address] [place] [address] Performed By: #### A LLBG #### [facility] CLIA [id number] [address] [place] [address] [place] Neutrophils (Bld) [#/Vol] 9.57 10*3/uL High 1.45-7.50 [facility] Comment on above: Order Comment: Speci men Type: ARTERIAL BLOOD SPECIMEN [facility]ing Facility: [facility] Address: [address] [place] [address] Performed By: #### A LLBG #### [facility] CLIA [id number] [address] [place] [address] [place] Neutrophils.hypersegme nted LM Ql (Bld) Occasional Normal [facility] Comment on above: Order Comment: Speci men Type: ARTERIAL BLOOD SPECIMEN [facility] [facility] Address: [address] [place] [address] Performed By: #### A LLBG #### [facility] CLIA [id number] [address] [place] [address] [place] Neutrophils/100 WBC (Bld) 76.0 % Normal [facility] Comment on above: Order Comment: Speci men Type: ARTERIAL BLOOD SPECIMEN Ordering Facility: [facility] Address: [address] [place] [address] Performed By: #### A LLBG #### [facility] CLIA [id number] [address] [place] [address] [place] Nucleated RBC (Bld) [#/Vol] 10*3/uL Normal <0.01 [facility] Comment on above: Order Comment: Speci men Type: ARTERIAL BLOOD SPECIMEN Ordering Facility: [facility] Address: [address] [place] [address] Performed By: #### A LLBG #### [facility] CLIA [id number] [address] [place] [address] [place] Nucleated RBC/100 WBC (Bld) [Ratio] 0.0 /100 WBC Normal [facility] Comment on above: Order Comment: Speci men Type: ARTERIAL BLOOD SPECIMEN Ordering Facility: [facility] Address: [address] [place] [address] Performed By: #### A LLBG #### [facility] CLIA [id number] [address] [place] [address] [place] Ovalocytes LM Ql (Bld) Few Normal [facility] Comment on above: Order Comment: Speci men Type: ARTERIAL BLOOD SPECIMEN Ordering Facility: [facility] Address: [address] [place] [address] Performed By: #### A LLBG #### [facility] CLIA [id number] [address] [place] [address] [place] Platelet mean volume (Bld) [Entitic vol] 9.7 fL Normal 9.0-12.7 [facility] Comment on above: Order Comment: Speci men Type: ARTERIAL BLOOD SPECIMEN Ordering Facility: [facility] Address: [address] [place] [address] Performed By: #### A LLBG #### [facility] CLIA [id number] [address] [place] [address] [place] Platelets (Bld) [#/Vol] 95 10*3/uL Low 150-400 [facility] Comment on above: Order Comment: Speci men Type: ARTERIAL BLOOD SPECIMEN Ordering Facility: [facility] Address: [address] [place] [address] Result Comment: No c lot detected. Performed By: #### A LLBG #### [facility] CLIA [id number] [address] [place] [address] [place] Platelets Estimate (Bld) [#/Vol] Decreased Normal [facility] Comment on above: Order Comment: Speci men Type: ARTERIAL BLOOD SPECIMEN Ordering Facility: [facility] Address: [address] [place] [address] Performed By: #### A LLBG #### [facility] CLIA [id number] [address] [place] [address] [place] Polychromasia LM Ql (Bld) Slight Normal [facility] Comment on above: Order Comment: Speci men Type: ARTERIAL BLOOD SPECIMEN Ordering Facility: [facility] Address: [address] [place] [address] Performed By: #### A LLBG #### [facility] CLIA [id number] [address] [place] [address] [place] RBC (Bld) [#/Vol] 3.90 10*6/uL Normal 3.90-5.20 [facility] Comment on above: Order Comment: Speci men Type: ARTERIAL BLOOD SPECIMEN Ordering Facility: [facility] Address: [address] [place] [address] Performed By: #### A LLBG #### [facility] CLIA [id number] [address] [place] [address] RED CELL MORPH Reviewed: see result s of individual morphologies Normal [facility] Comment on above: Order Comment: Speci men Type: ARTERIAL BLOOD SPECIMEN Ordering Facility: [facility] Address: [address] [place], [place] [address] Performed By: #### A LLBG #### [facility] CLIA [id number] [address] [place] [address] [place] [facility] [place] WBC (Bld) [#/Vol] 12.59 10*3/uL High 3.70-11.00 [facility] Comment on above: Order Comment: Speci men Type: ARTERIAL BLOOD SPECIMEN Ordering Facility: [facility] Address: [address] [place] [address] Performed By: #### A LLBG #### [facility] CLIA [id number] [address] [place] [address] CONSULT PROGon 11-22-2023 CONSULT PROG HNO ID: [id number] Author: SOHAIL WILLETT MD Service: Infectious Disease [...] (Src) 98 (Oral) Resp 16 Ht 5' 2" (1.58m) Wt 191 lb 4.8 oz (86.8kg) [...] November 22, 2023 TIME: 9:57 AM Normal [facility] Magnesium SerPl-mCncon 11-22 Magnesium [Mass/Vol] 1.9 mg/dL Normal 1.6-2.6 [facility] Comment on above: Order Comment: Speci men Type: ARTERIAL BLOOD SPECIMEN Ordering Facility: [facility] Address: [address] [place] [address] Performed By: #### A LLBG #### [facility] CLIA [id number] [address] [place] [address] [place] BF MANUAL DIFFon 11-21-2023 DIF TTL, BODY FLUID 100 cells counted Normal [facility] Comment on above: Order Comment: Speci men Type: ARTERIAL BLOOD SPECIMEN Ordering Facility: [facility] Address: [address] [place] [address] Performed By: #### A LLBG #### [facility] CLIA [id number] [address] [place] [address] [place] LYMPH%, BF 67 % High 18-36 [facility] Comment on above: Order Comment: Speci men Type: ARTERIAL BLOOD SPECIMEN Ordering Facility: [facility] Address: [address] [place] [address] Performed By: #### A LLBG #### [facility] CLIA [id number] [address] [place] [address] [place] MONO% BF 18 % Normal [facility] Comment on above: Order Comment: Speci men Type: ARTERIAL BLOOD SPECIMEN Ordering Facility: [facility] Address: [address] [place] [address] Performed By: #### A LLBG #### [facility] CLIA [id number] [address] [place] [address] [place] NEUT%, BF 15 % High 0-1 [facility] Comment on above: Order Comment: Speci men Type: ARTERIAL BLOOD SPECIMEN Ordering Facility: [facility] Address: [address] [place] [address] Performed By: #### A LLBG #### [facility] CLIA [id number] [address] [place] [address] OF [place] BF STAFF REVIEW (LAB ORDER)o n 11-21-2023 BF REVIEW Reviewed by Donny Miguel DO Normal [facility] Comment on above: Order Comment: Speci men Type: ARTERIAL BLOOD SPECIMEN Ordering Facility: [facility] Address: [address] [place] [address] Performed By: #### A LLBG #### [facility] CLIA [id number] [address] [place] [address] BF STAFF COMMENTS [facility] Comment on above: Order Comment: Speci men Type: ARTERIAL BLOOD SPECIMEN Ordering Facility: [facility] Address: [address] [place] [address] Result Comment: CYTO PREP INTERPRETATION: Mixed inflammatory cells including histiocytes/macrophages and mesothelial cells. 11/22/2023. Performed By: #### A LLBG #### [facility] CLIA [id number] [address] [place] [address] BODY FLUID CELL COUNTon 10-28 Clarity (Unsp spec) Clear Normal Clear [facility] Comment on above: Order Comment: Speci men Type: ARTERIAL BLOOD SPECIMEN Ordering Facility: [facility] Address: [address] [place] [address] Performed By: #### A LLBG #### [facility] CLIA [id number] [address] [place] [address] OF [place] Color (Body fld) Yellow Normal Yellow [facility] Comment on above: Order Comment: Speci men Type: ARTERIAL BLOOD SPECIMEN Ordering Facility: [facility] Address: [address] [place] [address] Performed By: #### A LLBG #### [facility] CLIA [id number] [address] [place] [address] OF [place] RBC Manual cnt (Body fld) [#/Vol] <2000 Normal <2000 [facility] Comment on above: Order Comment: Speci men Type: ARTERIAL BLOOD SPECIMEN Ordering Facility: [facility] Address: [address] [place] [address] Performed By: #### A LLBG #### [facility] CLIA [id number] [address] [place] [address] [place] Specimen source Nom (Body fld) ASCITES FLUID Normal [facility] Comment on above: Order Comment: Speci men Type: ARTERIAL BLOOD SPECIMEN Ordering Facility: [facility] Address: [address] [place] [address] Performed By: #### A LLBG #### [facility] CLIA [id number] [address] [place] [address] [place] WBC Manual cnt (Body fld) [#/Vol] 433 /uL Normal <1000 [facility] Comment on above: Order Comment: Speci men Type: ARTERIAL BLOOD SPECIMEN Ordering Facility: [facility] Address: [address] [place] [address] Performed By: #### A LLBG #### [facility] CLIA [id number] [address] [place] [address] OF [place] Bacteria Fld Culton 11-21-19 24 Bacteria identified Cx Nom (Body fld) CULTURE, BODY FLD: No growth 5 days GRAM STAIN: Moderate Polymorphonuclear leukocytes No organisms seen Normal [facility] Comment on above: Performed By: #### 3 2693-4 #### [facility] CLIA [id number] [address] [place] [address] [place] Basic metabolic 2000 panelon 11-21-2023 Anion gap [Moles/Vol] 4 mmol/L Low 5-16 [facility] Comment on above: Order Comment: Speci men Type: BLOOD SPECIMEN Ordering Facility: [facility] Address: [address] [place] [address] Performed By: #### 2 4323-8, 22057-7 #### [facility] CLIA [id number] [address] [place], [place] [address] [place] Calcium [Mass/Vol] 9.4 mg/dL Normal 8.5-10.5 [facility] Comment on above: Order Comment: Speci men Type: BLOOD SPECIMEN Ordering Facility: [facility] Address: [address] [place] [address] Performed By: #### 2 4323-8, #### [facility] CLIA [id number] [address] [place] [address] [place] Chloride [Moles/Vol] 106 mmol/L Normal 98-107 [facility] Comment on above: Order Comment: Speci men Type: BLOOD SPECIMEN Ordering Facility: [facility] Address: [address] [place] [address] Performed By: #### 2 4323-8, #### [facility] CLIA [id number] [address] [place] [address] [place] CO2 [Moles/Vol] 27 mmol/L Normal 21-32 [facility] Comment on above: Order Comment: Speci men Type: BLOOD SPECIMEN Ordering Facility: [facility] Address: [address] [place] [address] Performed By: #### 2 4323-8, #### [facility] CLIA [id number] [address] [place] [address] [place] Creatinine [Mass/Vol] 0.73 mg/dL Normal 0.51-0.95 [facility] Comment on above: Order Comment: Speci men Type: BLOOD SPECIMEN Ordering Facility: [facility] Address: [address] [place] [address] Result Comment: Tamie ents receiving either N-Acetylcysteine (NAC) or Metamizole prior to venipuncture, may have falsely depressed results. Performed By: #### 2 4323-8, #### [facility] CLIA [id number] [address] [place] [address] [place] Creatinine and Glomerular filtration rate.predicted panel (S/P/Bld) 100 mL/min/1.73m??? Normal >=60 [facility] Comment on above: Order Comment: Cole lamas Type: BLOOD SPECIMEN Ordering Facility: [facility] Address: [address] [place] [address] Result Comment: Connie mated Glomerular Filtration Rate [...] actual GFR. Performed By: #### 2 4323-8, 16041-3 #### [facility] CLIA [id number] [address] [place], [place] [address] [place] Glucose [Mass/Vol] 133 mg/dL High 70-100 [facility] Comment on above: Order Comment: Cole lamas Type: BLOOD SPECIMEN Ordering Facility: [facility] Address: [address] [place] [address] Result Comment: The [place] Diabetes Association (ADA) provides guidance for cutoff [...] Standards of Medical Care in Diabetes 2016, [place] [employer]. Diabetes Care. 2016.39(Suppl 1). Results may be falsely elevated after the administration of Sulfapyridine. Results may be falsely depressed after the administration of Sulfasalazine. Performed By: #### 2 4323-8, 39016-9 #### [facility] CLIA [id number] [address] [place], [place] [address] [place] Potassium [Moles/Vol] 4.6 mmol/L Normal 3.5-5.1 [facility] Comment on above: Order Comment: Speci men Type: BLOOD SPECIMEN Ordering Facility: [facility] Address: [address] [place] [address] Performed By: #### 2 4323-8, #### [facility] CLIA [id number] [address] [place] [address] [place] Sodium [Moles/Vol] 137 mmol/L Normal 136-145 [facility] Comment on above: Order Comment: Speci men Type: BLOOD SPECIMEN Ordering Facility: [facility] Address: [address] [place] [address] Performed By: #### 2 4323-8, #### [facility] CLIA [id number] [address] [place] [address] [place] Urea nitrogen [Mass/Vol] 21 mg/dL Normal - [facility] Comment on above: Order Comment: Speci men Type: BLOOD SPECIMEN Ordering Facility: [facility] Address: [address] [place] [address] Performed By: #### 2 4323-8, #### [facility] CLIA [id number] [address] [place] [address] [place] CBC W Auto Differential pane l (Bld)on 11-21-2023 Anisocytosis Ql (Bld) Present Normal [facility] Comment on above: Order Comment: Speci men Type: BLOOD SPECIMEN Ordering Facility: [facility] Address: [address] [place] [address] Performed By: #### 2 4323-8, #### [facility] CLIA [id number] [address] [place] [address] [place] Band form neutrophils/100 WBC (Bld) 2.0 % Normal [facility] Comment on above: Order Comment: Speci men Type: BLOOD SPECIMEN Ordering Facility: [facility] Address: [address] [place] [address] Performed By: #### 2 4323-8, #### [facility] CLIA [id number] [address] [place] [address] [place] Basophils (Bld) [#/Vol] 0.00 10*3/uL Normal <0.11 [facility] Comment on above: Order Comment: Speci men Type: BLOOD SPECIMEN Ordering Facility: [facility] Address: [address] [place] [address] Performed By: #### 2 432-8, #### [facility] CLIA [id number] [address] [place], [place] [address] [place] Basophils/100 WBC (Bld) 0.0 % Normal [facility] Comment on above: Order Comment: Speci men Type: BLOOD SPECIMEN Ordering Facility: [facility] Address: [address] [place] [address] Performed By: #### 2 4328, #### [facility] CLIA [id number] [address] [place], [place] [address] [place] Differential cell count method Nom (Bld) Manual Normal [facility] Comment on above: Order Comment: Speci men Type: BLOOD SPECIMEN Ordering Facility: [facility] Address: [address] [place] [address] Performed By: #### 2 4328, #### [facility] CLIA [id number] [address] [place], [place] [address] [place] Eosinophils (Bld) [#/Vol] 0.00 10*3/uL Normal <0.46 [facility] Comment on above: Order Comment: Speci men Type: BLOOD SPECIMEN Ordering Facility: [facility] Address: [address] [place] [address] Performed By: #### 2 4323-8, #### [facility] CLIA [id number] [address] [place], [place] [address] [place] Eosinophils/100 WBC (Bld) 0.0 % Normal [facility] Comment on above: Order Comment: Speci men Type: BLOOD SPECIMEN Ordering Facility: [facility] Address: [address] [place] [id number] Performed By: #### 2 4323-8, #### [facility] CLIA [id number] [address] [place], [place] [address] [place] Erythrocyte distribution width (RBC) [Ratio] 25.2 % High 11.5-15.0 [facility] Comment on above: Order Comment: Speci men Type: BLOOD SPECIMEN Ordering Facility: [facility] Address: [address] [place] [address] Performed By: #### 2 432-8, #### [facility] CLIA [id number] [address] [place], [place] [address] [place] Hematocrit (Bld) [Volume fraction] 25.6 % Low 36.0-46.0 [facility] Comment on above: Order Comment: Speci men Type: BLOOD SPECIMEN Ordering Facility: [facility] Address: [address] [place] [address] Performed By: #### 2 4323-8, #### [facility] CLIA [id number] [address] [place] [address] [place] Hemoglobin (Bld) [Mass/Vol] 8.2 g/dL Low 11.5-15.5 [facility] Comment on above: Order Comment: Speci men Type: BLOOD SPECIMEN Ordering Facility: [facility] Address: [address] [place] [address] Performed By: #### 2 432-8, #### [facility] CLIA [id number] [address] [place], [place] [address] [place] Lymphocytes (Bld) [#/Vol] 0.72 10*3/uL Low 1.00-4.00 [facility] Comment on above: Order Comment: Speci men Type: BLOOD SPECIMEN Ordering Facility: [facility] Address: [address] [place] [address] Performed By: #### 2 432-, #### [facility] CLIA [id number] [address] [place] [address] [place] Lymphocytes/100 WBC (Bld) 4.0 % Normal [facility] Comment on above: Order Comment: Speci men Type: BLOOD SPECIMEN Ordering Facility: [facility] Address: [address] [place] [address] Performed By: #### 2 4323-8, #### [facility] CLIA [id number] [address] [place] [address] [place] MCH (RBC) [Entitic mass] 24.6 pg Low 26.0-34.0 [facility] Comment on above: Order Comment: Speci men Type: BLOOD SPECIMEN Ordering Facility: [facility] Address: [address] [place] [address] Performed By: #### 2 4328, #### [facility] CLIA [id number] [address] [place] [address] [place] MCHC (RBC) [Mass/Vol] 32.0 g/dL Normal 30.5-36.0 [facility] Comment on above: Order Comment: Speci men Type: BLOOD SPECIMEN Ordering Facility: [facility] Address: [address] [place] [address] Performed By: #### 2 43238, #### [facility] CLIA [id number] [address] [place] [address] [place] MCV (RBC) [Entitic vol] 76.6 fL Low 80.0-100.0 [facility] Comment on above: Order Comment: Speci men Type: BLOOD SPECIMEN Ordering Facility: [facility] Address: [address] [place] [address] Performed By: #### 2 43238, #### [facility] CLIA [id number] [address] [place] [address] [place] Metamyelocytes/100 WBC (Bld) 1.0 % Normal [facility] Comment on above: Order Comment: Speci men Type: BLOOD SPECIMEN Ordering Facility: [facility] Address: [address] [place] [address] Performed By: #### 2 4323-8, #### [facility] CLIA [id number] [address] [place] [address] [place] Monocytes (Bld) [#/Vol] 0.89 10*3/uL High <0.87 [facility] Comment on above: Order Comment: Speci men Type: BLOOD SPECIMEN Ordering Facility: [facility] Address: [address] [place] [address] Performed By: #### 2 4328, #### [facility] CLIA [id number] [address] [place] [address] [place] Monocytes/100 WBC (Bld) 5.0 % Normal [facility] Comment on above: Order Comment: Speci men Type: BLOOD SPECIMEN Ordering Facility: [facility] Address: [address] [place] [address] Performed By: #### 2 8, #### [facility] CLIA [id number] [address] [place] [address] [place] Neutrophils (Bld) [#/Vol] 16.09 10*3/uL High 1.45-7.50 [facility] Comment on above: Order Comment: Speci men Type: BLOOD SPECIMEN Ordering Facility: [facility] Address: [address] [place] [address] Performed By: #### 2 4322-8, #### [facility] CLIA [id number] [address] [place] [address] [place] Neutrophils.hypersegme nted LM Ql (Bld) Occasional Normal [facility] Comment on above: Order Comment: Speci men Type: BLOOD SPECIMEN Ordering Facility: [facility] Address: [address] [place] [address] Performed By: #### 2 432-8, #### [facility] CLIA [id number] [address] [place] [address] [place] Neutrophils/100 WBC (Bld) 88.0 % Normal [facility] Comment on above: Order Comment: Speci men Type: BLOOD SPECIMEN Ordering Facility: [facility] Address: [address] [place] [address] Performed By: #### 2 4323-8, #### [facility] CLIA [id number] [address] [place] [address] [place] Nucleated RBC (Bld) [#/Vol] 10*3/uL Normal <0.01 [facility] Comment on above: Order Comment: Speci men Type: BLOOD SPECIMEN Ordering Facility: [facility] Address: [address] [place] [address] Performed By: #### 2 4323-8, #### [facility] CLIA [id number] [address] [place] [address] [place] Nucleated RBC/100 WBC (Bld) [Ratio] 0.0 /100 WBC Normal [facility] Comment on above: Order Comment: Speci men Type: BLOOD SPECIMEN Ordering Facility: [facility] Address: [address] [place] [address] Performed By: #### 2 4323-8, #### [facility] CLIA [id number] [address] [place] [address] [place] Ovalocytes LM Ql (Bld) Few Normal [facility] Comment on above: Order Comment: Speci men Type: BLOOD SPECIMEN Ordering Facility: [facility] Address: [address] [place] [address] Performed By: #### 2 4323-8, #### [facility] CLIA [id number] [address] [place] [address] [place] Platelet mean volume (Bld) [Entitic vol] Normal [facility] Comment on above: Order Comment: Speci men Type: BLOOD SPECIMEN Ordering Facility: [facility] Address: [address], [place] [address] Result Comment: Unab le to Report. Performed By: #### 2 4323-8, #### [facility] CLIA [id number] [address] [place], [place] [id number] [place] [place] Platelets (Bld) [#/Vol] 91 10*3/uL Low 150-400 [facility] Comment on above: Order Comment: Speci men Type: BLOOD SPECIMEN Ordering Facility: [facility] Address: [address] [place] [address] Result Comment: No c lot detected. Performed By: #### 2 4323-8, #### [facility] CLIA [id number] [address] [place] [address] [place] Platelets Estimate (Bld) [#/Vol] Decreased Normal [facility] Comment on above: Order Comment: Speci men Type: BLOOD SPECIMEN Ordering Facility: [facility] Address: [address] [place] [address] Performed By: #### 2 4323-8, #### [facility] CLIA [id number] [address] [place] [address] [place] Polychromasia LM Ql (Bld) Slight Normal [facility] Comment on above: Order Comment: Speci men Type: BLOOD SPECIMEN Ordering Facility: [facility] Address: [address] [place] [address] Performed By: #### 2 4323-8, #### [facility] CLIA [id number] [address] [place], [place] [address] [place] RBC (Bld) [#/Vol] 3.34 10*6/uL Low 3.90-5.20 [facility] Comment on above: Order Comment: Speci men Type: BLOOD SPECIMEN Ordering Facility: [facility] Address: [address] [place] [address] Performed By: #### 2 4323-8, #### [facility] CLIA [id number] [address] [place], [place] [address] [facility] [place] RED CELL MORPH Reviewed: see result s of individual morphologies Normal [facility] Comment on above: Order Comment: Speci men Type: BLOOD SPECIMEN Ordering Facility: [facility] Address: [address] [place] [address] Performed By: #### 2 4323-8, 06209-0 #### [facility] CLIA [id number] [address] [place] [address] [place] WBC (Bld) [#/Vol] 17.88 10*3/uL High 3.70-11.00 [facility] Comment on above: Order Comment: Speci men Type: BLOOD SPECIMEN Ordering Facility: [facility] Address: [address] [place] [address] Performed By: #### 2 4323-8, 37103-9 #### [facility] CLIA [id number] [address] [place] [address] [address] [facility] [place] CONSULTon 11-21-2023 CONSULT HNO ID: [id number] Author: SOHAIL WILLETT MD Service: Infectious Disease [...] polysubstance abuse, hx of MRSA, presented to [facility] with abdominal distention and encephalopathy, transferred to [facility] for further evaluation and paracentesis. After [...] Pt says she had a paracentesis at [facility] ER several days ago. She had influenza B about 2 weeks ago. Has been in and out of the hospital in [place]. She complains of a throbbing headache this [...] PAST SURGICAL HISTORY OF 2018 liver bx [facility] FAMILY HISTORY Problem Relation Age of Onset [...] mg O (more content not included)... Normal [facility] Magnesium SerPl-mCncon 11-21 Magnesium [Mass/Vol] 2.1 mg/dL Normal 1.6-2.6 [facility] Comment on above: Order Comment: Speci men Type: BLOOD SPECIMEN Ordering Facility: [facility] Address: [address] [facility] [place] [address] Performed By: #### 2 4323-8, 12914-1 #### [facility] CLIA [id number] [address] [place], [place] [phone] [facility] [place] Prot Fld-mCncon 11-21-2023 Protein (Body fld) [Mass/Vol] g/dL Normal See Comment [facility] Comment on above: Order Comment: Speci men Type: ARTERIAL BLOOD SPECIMEN Ordering Facility: [facility] Address: [address] [place] [address] Result Comment: The reference range and other method performance specifications have not been established for this fluid test. The test result should be integrated into the clinical context for interpretation. Performed By: #### A LLBG #### [facility] CLIA [id number] [address] [place], [place] [address] [facility] US PARACENTESIS BIon 024 US PARACENTESIS [...] anesthesia. Paracentesis was performed utilizing a 5 Nauruan multiholed centesis catheter. Ultrasound confirmed needle position within the fluid and image documenting needle position was recorded in PACS. Paracentesis was performed in the right side of the abdomen. 2.2 L yellow ascitic fluid was removed. Postparacentesis scanning shows no significant residual in the region. Patient tolerated the procedure well without immediate apparent complication. IMPRESSION: Uncomplicated ultrasound-guided paracentesis Bilingual Patient Support Caseworker: POOJA Transcribe Date/Time: Feb 26 2024 3:05P Dictated by : SANDRA LEDESMA MD This examination was interpreted and the report reviewed and electronically signed by: SANDRA LEDESMA MD on Nov 21 2023 3:06PM EST [id number] Normal [facility] ARTERIAL BLOOD GASESon 11-20 Base excess Calc (Bld) [Moles/Vol] 1 mmol/L Normal 0-2 [facility] Comment on above: Order Comment: Speci men Type: BLOOD SPECIMEN Ordering Facility: [facility] Address: [address] [place] [address] Performed By: #### 2 4323-8, #### [facility] CLIA [id number] [address] [place] [address] [place] Body temperature 98.6 [degF] Normal [facility] Comment on above: Order Comment: Speci men Type: BLOOD SPECIMEN Ordering Facility: [facility] Address: [address] [place] [address] Performed By: #### 2 432-8, #### [facility] CLIA [id number] [address] [place] [address] [place] Calcium.ionized (Bld) [Mass/Vol] 1.17 mmol/L Normal 1.08-1.30 [facility] Comment on above: Order Comment: Speci men Type: BLOOD SPECIMEN Ordering Facility: [facility] Address: [address] [place] [address] Performed By: #### 2 4323-8, #### [facility] CLIA [id number] [address] [place] [address] [place] Carboxyhemoglobin (BldA) [Mass fraction] 0.7 % Normal 0.0-2.0 [facility] Comment on above: Order Comment: Speci men Type: BLOOD SPECIMEN Ordering Facility: [facility] Address: [address] [place] [address] Result Comment: Carb oxyhemoglobin Reference Range for Smokers: 2.0-8.0% Performed By: #### 2 4323-, #### [facility] CLIA [id number] [address] [place] [address] [place] CO2 (Bld) [Partial pressure] 37 mm Hg Normal 36-46 [facility] Comment on above: Order Comment: Speci men Type: BLOOD SPECIMEN Ordering Facility: [facility] Address: [address] [place] [address] Performed By: #### 2 4328, #### [facility] CLIA [id number] [address] [place], [place] [address] [place] Glucose [Mass/Vol] 123 mg/dL High 60-105 [facility] Comment on above: Order Comment: Speci men Type: BLOOD SPECIMEN Ordering Facility: [facility] Address: [address] [place] [address] Performed By: #### 2 8, #### [facility] CLIA [id number] [address] [place], [place] [address] [place] HCO3 (Bld) [Moles/Vol] 25 mmol/L Normal 22-26 [facility] Comment on above: Order Comment: Speci men Type: BLOOD SPECIMEN Ordering Facility: [facility] Address: [address] [place] [address] Performed By: #### 2 4328, #### [facility] CLIA [id number] [address] [place], [place] [address] [place] Hemoglobin (Bld) [Mass/Vol] 9.3 g/dL Low 11.5-15.5 [facility] Comment on above: Order Comment: Speci men Type: BLOOD SPECIMEN Ordering Facility: [facility] Address: [address] [place] [address] Performed By: #### 2 4323-8, #### [facility] CLIA [id number] [address] [place] [address] [place] Lactate [Moles/Vol] 2.0 mmol/L Normal 0.5-2.2 [facility] Comment on above: Order Comment: Speci men Type: BLOOD SPECIMEN Ordering Facility: [facility] Address: [address] [facility] [place] [address] Performed By: #### 2 8, #### [facility] CLIA [id number] [address] [place], [place] [address] [place] Methemoglobin (Bld) [Mass fraction] 0.3 % Normal 0.0-1.5 [facility] Comment on above: Order Comment: Speci men Type: BLOOD SPECIMEN Ordering Facility: [facility] Address: [address] [place] [address] Performed By: #### 2 8, #### [facility] CLIA [id number] [address] [place], [place] [address] [place] O2 THERAPY NC = Nasal Cannula Normal [facility] Comment on above: Order Comment: Speci men Type: BLOOD SPECIMEN Ordering Facility: [facility] Address: [address] [place] [address] Performed By: #### 2 4323-04, #### [facility] CLIA [id number] [address] [place], [place] [address] [place] Oxygen (Bld) [Partial pressure] 84 mm Hg Low 85-95 [facility] Comment on above: Order Comment: Speci men Type: BLOOD SPECIMEN Ordering Facility: [facility] Address: [address] [facility] [place] [address] Performed By: #### 2 4323-04, #### [facility] CLIA [id number] [address] [place] [address] [place] Oxyhemoglobin (BldA) [Mass fraction] 95 % Normal 95-98 [facility] Comment on above: Order Comment: Speci men Type: BLOOD SPECIMEN Ordering Facility: [facility] Address: [address] [facility] [place] [address] Performed By: #### 2 4328, #### [facility] CLIA [id number] [address] [place] [address] [place] pH (Bld) 7.45 [pH] Normal 7.35-7.45 [facility] Comment on above: Order Comment: Speci men Type: BLOOD SPECIMEN Ordering Facility: [facility] Address: [address] [place] [address] Performed By: #### 2 4323-8, #### [facility] CLIA [id number] [address] [place] [address] [place] Potassium [Moles/Vol] 4.4 mmol/L Normal 2.5-6.0 [facility] Comment on above: Order Comment: Speci men Type: BLOOD SPECIMEN Ordering Facility: [facility] Address: [address] [place] [address] Performed By: #### 2 4323-8, #### [facility] CLIA [id number] [address] [place] [address] [place] Sodium [Moles/Vol] 130 mmol/L Low 136-144 [facility] Comment on above: Order Comment: Speci men Type: BLOOD SPECIMEN Ordering Facility: [facility] Address: [address] [place] [address] Performed By: #### 2 4323-8, #### [facility] CLIA [id number] [address] [place] [address] [place] CBC W Auto Differential pane l (Bld)on 11-20-2023 Anisocytosis Ql (Bld) Present Normal [facility] Comment on above: Order Comment: Speci men Type: BLOOD SPECIMEN Ordering Facility: [facility] Address: [address] [place] [address] Performed By: #### 2 4323-8, #### [facility] CLIA [id number] [address] [place] [address] [place] Band form neutrophils/100 WBC (Bld) 3.0 % Normal [facility] Comment on above: Order Comment: Speci men Type: BLOOD SPECIMEN Ordering Facility: [facility] Address: [address] [place] [address] Performed By: #### 2 432-8, #### [facility] CLIA [id number] [address] [place], [place] [address] [place] Basophils (Bld) [#/Vol] 0.00 10*3/uL Normal <0.11 [facility] Comment on above: Order Comment: Speci men Type: BLOOD SPECIMEN Ordering Facility: [facility] Address: [address] [place] [address] Performed By: #### 2 4328, #### [facility] CLIA [id number] [address] [place], [place] [address] [place] Basophils/100 WBC (Bld) 0.0 % Normal [facility] Comment on above: Order Comment: Speci men Type: BLOOD SPECIMEN Ordering Facility: [facility] Address: [address] [place] [address] Performed By: #### 2 4323-04, #### [facility] CLIA [id number] [address] [place], [place] [address] [place] Differential cell count method Nom (Bld) Manual Normal [facility] Comment on above: Order Comment: Speci men Type: BLOOD SPECIMEN Ordering Facility: [facility] Address: [address] [place] [address] Performed By: #### 2 4328, #### [facility] CLIA [id number] [address] [place] [address] [place] Eosinophils (Bld) [#/Vol] 0.00 10*3/uL Normal <0.46 [facility] Comment on above: Order Comment: Speci men Type: BLOOD SPECIMEN Ordering Facility: [facility] Address: [address] [place] [address] Performed By: #### 2 4323-8, #### [facility] CLIA [id number] [address] [place], [place] [address] [place] Eosinophils/100 WBC (Bld) 0.0 % Normal [facility] Comment on above: Order Comment: Speci men Type: BLOOD SPECIMEN Ordering Facility: [facility] Address: [address] [place] [address] Performed By: #### 2 4323-8, #### [facility] CLIA [id number] [address] [place], [place] [address] [place] Erythrocyte distribution width (RBC) [Ratio] 24.6 % High 11.5-15.0 [facility] Comment on above: Order Comment: Speci men Type: BLOOD SPECIMEN Ordering Facility: [facility] Address: [address] [place] [address] Performed By: #### 2 4323-8, #### [facility] CLIA [id number] [address] [place], [place] [address] [place] Hematocrit (Bld) [Volume fraction] 26.5 % Low 36.0-46.0 [facility] Comment on above: Order Comment: Speci men Type: BLOOD SPECIMEN Ordering Facility: [facility] Address: [address] [place] [address] Performed By: #### 2 4323-8, #### [facility] CLIA [id number] [address] [place], [place] [address] [place] Hemoglobin (Bld) [Mass/Vol] 8.3 g/dL Low 11.5-15.5 [facility] Comment on above: Order Comment: Speci men Type: BLOOD SPECIMEN Ordering Facility: [facility] Address: [address] [place] [address] Performed By: #### 2 4323-8, #### [facility] CLIA [id number] [address] [place], [place] [address] [place] Lymphocytes (Bld) [#/Vol] 0.31 10*3/uL Low 1.00-4.00 [facility] Comment on above: Order Comment: Speci men Type: BLOOD SPECIMEN Ordering Facility: [facility] Address: [address] [place] [address] Performed By: #### 2 4323-8, #### [facility] CLIA [id number] [address] [place], [place] [address] [place] Lymphocytes/100 WBC (Bld) 2.0 % Normal [facility] Comment on above: Order Comment: Speci men Type: BLOOD SPECIMEN Ordering Facility: [facility] Address: [address] [place] [address] Performed By: #### 2 43212-01, #### [facility] CLIA [id number] [address] [place], [place] [address] [place] MCH (RBC) [Entitic mass] 23.9 pg Low 26.0-34.0 [facility] Comment on above: Order Comment: Speci men Type: BLOOD SPECIMEN Ordering Facility: [facility] Address: [address] [place] [address] Performed By: #### 2 43212-01, #### [facility] CLIA [id number] [address] [place] [address] [place] MCHC (RBC) [Mass/Vol] 31.3 g/dL Normal 30.5-36.0 [facility] Comment on above: Order Comment: Speci men Type: BLOOD SPECIMEN Ordering Facility: [facility] Address: [address] [place] [address] Performed By: #### 2 4328, #### [facility] CLIA [id number] [address] [place], [place] [address] [place] MCV (RBC) [Entitic vol] 76.1 fL Low 80.0-100.0 [facility] Comment on above: Order Comment: Speci men Type: BLOOD SPECIMEN Ordering Facility: [facility] Address: [address] [place] [address] Performed By: #### 2 4323-8, #### [facility] CLIA [id number] [address] [place], [place] [address] [place] Metamyelocytes/100 WBC (Bld) 1.0 % Normal [facility] Comment on above: Order Comment: Speci men Type: BLOOD SPECIMEN Ordering Facility: [facility] Address: [address] [place] [address] Performed By: #### 2 4323-8, #### [facility] CLIA [id number] [address] [place], [place] [address] [place] Monocytes (Bld) [#/Vol] 0.94 10*3/uL High <0.87 [facility] Comment on above: Order Comment: Speci men Type: BLOOD SPECIMEN Ordering Facility: [facility] Address: [address] [place] [address] Performed By: #### 2 432-8, #### [facility] CLIA [id number] [address] [place] [address] [place] Monocytes/100 WBC (Bld) 6.0 % Normal [facility] Comment on above: Order Comment: Speci men Type: BLOOD SPECIMEN Ordering Facility: [facility] Address: [address] [place] [address] Performed By: #### 2 4328, #### [facility] CLIA [id number] [address] [place] [address] [place] Neutrophils (Bld) [#/Vol] 14.24 10*3/uL High 1.45-7.50 [facility] Comment on above: Order Comment: Speci men Type: BLOOD SPECIMEN Ordering Facility: [facility] Address: [address] [place] [address] Performed By: #### 2 4323-8, #### [facility] CLIA [id number] [address] [place], [place] [address] [place] Neutrophils.hypersegme nted LM Ql (Bld) Occasional Normal [facility] Comment on above: Order Comment: Speci men Type: BLOOD SPECIMEN Ordering Facility: [facility] Address: [address] [place] [address] Performed By: #### 2 4323-8, #### [facility] CLIA [id number] [address] [place], [place] [address] [place] Neutrophils/100 WBC (Bld) 88.0 % Normal [facility] Comment on above: Order Comment: Speci men Type: BLOOD SPECIMEN Ordering Facility: [facility] Address: [address] [place] [address] Performed By: #### 2 432-8, #### [facility] CLIA [id number] [address] [place] [address] [place] Nucleated RBC (Bld) [#/Vol] 10*3/uL Normal <0.01 [facility] Comment on above: Order Comment: Speci men Type: BLOOD SPECIMEN Ordering Facility: [facility] Address: [address] [place] [address] Performed By: #### 2 4328, #### [facility] CLIA [id number] [address] [place] [address] [place] Nucleated RBC/100 WBC (Bld) [Ratio] 0.0 /100 WBC Normal [facility] Comment on above: Order Comment: Speci men Type: BLOOD SPECIMEN Ordering Facility: [facility] Address: [address] [place] [address] Performed By: #### 2 4328, #### [facility] CLIA [id number] [address] [place] [address] [place] Ovalocytes LM Ql (Bld) Few Normal [facility] Comment on above: Order Comment: Speci men Type: BLOOD SPECIMEN Ordering Facility: [facility] Address: [address] [place], [place] [address] Performed By: #### 2 43238, #### [facility] CLIA [id number] [address] [place], [place] [address] [place] Platelet mean volume (Bld) [Entitic vol] 9.9 fL Normal 9.0-12.7 [facility] Comment on above: Order Comment: Speci men Type: BLOOD SPECIMEN Ordering Facility: [facility] Address: [address] [place] [address] Performed By: #### 2 4323-8, #### [facility] CLIA [id number] [address] [place], [place] [address] [place] Platelets (Bld) [#/Vol] 78 10*3/uL Low 150-400 [facility] Comment on above: Order Comment: Speci men Type: BLOOD SPECIMEN Ordering Facility: [facility] Address: [address] [place] [id number] Result Comment: No c lot detected. Performed By: #### 2 432-8, #### [facility] CLIA [id number] [address] [place] [address] [place] Platelets Estimate (Bld) [#/Vol] Decreased Normal [facility] Comment on above: Order Comment: Speci men Type: BLOOD SPECIMEN Ordering Facility: [facility] Address: [address] [place], [place] [address] Performed By: #### 2 4323-8, #### [facility] CLIA [id number] [address] [place] [address] [place] Polychromasia LM Ql (Bld) Slight Normal [facility] Comment on above: Order Comment: Speci men Type: BLOOD SPECIMEN Ordering Facility: [facility] Address: [address] [place] [id number] Performed By: #### 2 432-8, #### [facility] CLIA [id number] [address] [place] [address] [place] RBC (Bld) [#/Vol] 3.48 10*6/uL Low 3.90-5.20 [facility] Comment on above: Order Comment: Speci men Type: BLOOD SPECIMEN Ordering Facility: [facility] Address: [address] [place] [address] Performed By: #### 2 4328, #### [facility] CLIA [id number] [address] [place] [address] [place] RED CELL MORPH Reviewed: see result s of individual morphologies Normal [facility] Comment on above: Order Comment: Speci men Type: BLOOD SPECIMEN Ordering Facility: [facility] Address: [address] [place] [address] Performed By: #### 2 4323-8, #### [facility] CLIA [id number] [address] [place] [address] [place] WBC (Bld) [#/Vol] 15.65 10*3/uL High 3.70-11.00 [facility] Comment on above: Order Comment: Speci men Type: BLOOD SPECIMEN Ordering Facility: [facility] Address: [address] [place] [address] Performed By: #### 2 4323-8, #### [facility] CLIA [id number] [address] [place] [address] [place] Calcium.ionized [Moles/Vol]o n 11-20-2023 Calcium.ionized (Bld) [Mass/Vol] 1.17 mmol/L Normal 1.16-1.32 [facility] Comment on above: Order Comment: Speci men Type: BLOOD SPECIMEN Ordering Facility: [facility] Address: [address] [place] [address] Performed By: #### 2 4323-8, #### [facility] CLIA [id number] [address] [place] [address] [place] Comprehensive metabolic 2000 panelon 11-20-2023 Albumin [Mass/Vol] 2.4 g/dL Low 3.2-5.0 [facility] Comment on above: Order Comment: Speci men Type: BLOOD SPECIMEN Ordering Facility: [facility] Address: [address] [place] [address] Result Comment: DELT A CHECK Performed By: #### 2 4323-8, #### [facility] CLIA [id number] [address] [place], [place] [address] [place] ALP [Catalytic activity/Vol] 130 U/L High 45-117 [facility] Comment on above: Order Comment: Yeseniai men Type: BLOOD SPECIMEN Ordering Facility: [facility] Address: [address] [place] [address] Performed By: #### 2 4323-8, #### [facility] CLIA [id number] [address] [place] [address] [place] ALT [Catalytic activity/Vol] 32 U/L Normal 13-61 [facility] Comment on above: Order Comment: Speci men Type: BLOOD SPECIMEN Ordering Facility: [facility] Address: [address] [place] [address] Result Comment: Resu lts may be falsely depressed after the administration of Sulfasalazine and/or Sulfapyridine. Performed By: #### 2 4323-8, #### [facility] CLIA [id number] [address] [place] [address] [place] Anion gap [Moles/Vol] 3 mmol/L Low 5-16 [facility] Comment on above: Order Comment: Yeseniai cydney Type: BLOOD SPECIMEN Ordering Facility: [facility] Address: [address] [place] [address] Performed By: #### 2 4323-8, #### [facility] CLIA [id number] [address] [place], [place] [address] [place] AST [Catalytic activity/Vol] 76 U/L High 8-34 [facility] Comment on above: Order Comment: Speci men Type: BLOOD SPECIMEN Ordering Facility: [facility] Address: [address] [place] [address] Result Comment: Resu lts may be falsely depressed after the administration of Sulfasalazine and/or Sulfapyridine. Performed By: #### 2 4323-8, #### [facility] CLIA [id number] [address] [place], [place] [address] [place] Bilirubin [Mass/Vol] 2.2 mg/dL High 0.2-1.0 [facility] Comment on above: Order Comment: Speci men Type: BLOOD SPECIMEN Ordering Facility: [facility] Address: [address] [place] [address] Performed By: #### 2 4323-8, #### [facility] CLIA [id number] [address] [place], [place] [address] [place] Calcium [Mass/Vol] 8.9 mg/dL Normal 8.5-10.5 [facility] Comment on above: Order Comment: Speci men Type: BLOOD SPECIMEN Ordering Facility: [facility] Address: [address] [place] [address] Performed By: #### 2 4323-8, #### [facility] CLIA [id number] [address] [place], [place] [address] [place] Chloride [Moles/Vol] 102 mmol/L Normal 98-107 [facility] Comment on above: Order Comment: Speci men Type: BLOOD SPECIMEN Ordering Facility: [facility] Address: [address] [place] [address] Performed By: #### 2 4323-8, #### [facility] CLIA [id number] [address] [place], [place] [address] [place] CO2 [Moles/Vol] 28 mmol/L Normal 21-32 [facility] Comment on above: Order Comment: Speci men Type: BLOOD SPECIMEN Ordering Facility: [facility] Address: [address] [place] [address] Performed By: #### 2 4323-8, #### [facility] CLIA [id number] [address] [place], [place] [address] [place] Creatinine [Mass/Vol] 0.95 mg/dL Normal 0.51-0.95 [facility] Comment on above: Order Comment: Speci men Type: BLOOD SPECIMEN Ordering Facility: [facility] Address: [address] [place] [address] Result Comment: Tamie ents receiving either N-Acetylcysteine (NAC) or Metamizole prior to venipuncture, may have falsely depressed results. Performed By: #### 2 4323-8, 71665-4 #### [facility] CLIA [id number] [address] [place] [address] [place] Creatinine and Glomerular filtration rate.predicted panel (S/P/Bld) 73 mL/min/1.73m??? Normal >=60 [facility] Comment on above: Order Comment: Cole lamas Type: BLOOD SPECIMEN Ordering Facility: [facility] Address: [address] [place] [address] Result Comment: Connie mated Glomerular Filtration Rate [...] actual GFR. Performed By: #### 2 4323-8, 10147-1 #### [facility] CLIA [id number] [address] [place] [address] [place] Glucose [Mass/Vol] 141 mg/dL High 70-100 [facility] Comment on above: Order Comment: Cole lamas Type: BLOOD SPECIMEN Ordering Facility: [facility] Address: [address] [place] [address] Result Comment: The [place] Diabetes Association (ADA) provides guidance for cutoff [...] Standards of Medical Care in Diabetes 2016, [place] [employer]. Diabetes Care. 2016.39(Suppl 1). Results may be falsely elevated after the administration of Sulfapyridine. Results may be falsely depressed after the administration of Sulfasalazine. Performed By: #### 2 4323-8, #### [facility] CLIA [id number] [address] [place], [place] [address] [place] Potassium [Moles/Vol] 4.9 mmol/L Normal 3.5-5.1 [facility] Comment on above: Order Comment: Speci men Type: BLOOD SPECIMEN Ordering Facility: [facility] Address: [address] [place] [address] Performed By: #### 2 4328, #### [facility] CLIA [id number] [address] [place], [place] [address] [place] Protein [Mass/Vol] 7.0 g/dL Normal 6.0-8.5 [facility] Comment on above: Order Comment: Speci men Type: BLOOD SPECIMEN Ordering Facility: [facility] Address: [address] [place] [address] Performed By: #### 2 8, #### [facility] CLIA [id number] [address] [place] [address] [place] Sodium [Moles/Vol] 133 mmol/L Low 136-145 [facility] Comment on above: Order Comment: Speci men Type: BLOOD SPECIMEN Ordering Facility: [facility] Address: [address] [place] [address] Performed By: #### 2 43212-01, #### [facility] CLIA [id number] [address] [place], [place] [address] [place] Urea nitrogen [Mass/Vol] 20 mg/dL Normal 7-26 [facility] Comment on above: Order Comment: Speci men Type: BLOOD SPECIMEN Ordering Facility: [facility] Address: [address] [place] [address] Performed By: #### 2 432-8, #### [facility] CLIA [id number] [address] [place], [place] [address] [place] Lactate (Bld) [Moles/Vol]on 11-20-2023 Lactate [Moles/Vol] 4.2 mmol/L High 0.4-2.0 [facility] Comment on above: Order Comment: Speci men Type: BLOOD SPECIMEN Ordering Facility: [facility] Address: [address] [place] [address] Result Comment: CALL CRITICAL Performed By: #### 2 4323-8, #### [facility] CLIA [id number] [address] [place] [address] [place] Lactate [Moles/Vol] 2.8 mmol/L High 0.4-2.0 [facility] Comment on above: Order Comment: Speci men Type: BLOOD SPECIMEN Ordering Facility: [facility] Address: [address] [place] [address] Performed By: #### 2 4323-8, #### [facility] CLIA [id number] [address] [place] [address] Lactate [Moles/Vol] 3.1 mmol/L High 0.4-2.0 [facility] Comment on above: Order Comment: Speci men Type: BLOOD SPECIMEN Ordering Facility: [facility] Address: [address] [place] [address] Performed By: #### 2 4323-8, #### [facility] CLIA [id number] [address] [place], [place] [address] [place] Magnesium SerPl-mCncon 11-20 Magnesium [Mass/Vol] 1.9 mg/dL Normal 1.6-2.6 [facility] Comment on above: Order Comment: Speci men Type: BLOOD SPECIMEN Ordering Facility: [facility] Address: [address] [place] [address] Performed By: #### 2 4323-8, #### [facility] CLIA [id number] [address] [place], [place] [address] [place] PT panel Coag (PPP)on 2023 INR Coag (PPP) [Relative time] 2.3 {INR} High 0.9-1.3 [facility] Comment on above: Order Comment: Cole lamas Type: BLOOD SPECIMEN Ordering Facility: [facility] Address: [address] [place] [address] Result Comment: Roma min K Antagonist (VKA) Therapeutic Range: INR 2 to 3 (Target INR of 2.5) Note: For patients treated with VKA drugs, such as warfarin, the [place] [employer] 2012 Guideline recommends [...] to 3.5 (target INR of 3). Raghavendra BEY, et al. Chest 2012, 141:7S-47S Diomedes RA, et al. [facility] 2017, 70: 252-289 Performed By: #### 2 4323-8, 95150-9 #### [facility] CLIA [id number] [address] [place], [place] [address] [place] PT Coag (PPP) [Time] 23.1 s High 9.7-13.0 [facility] Comment on above: Order Comment: Cole lamas Type: BLOOD SPECIMEN Ordering Facility: [facility] Address: [address] [place] [address] Performed By: #### 2 4323-8, 19011-8 #### [facility] CLIA [id number] [address] [place], [place] [address] [place] Phosphate SerPl-mCncon 11-20 Phosphate [Mass/Vol] 2.5 mg/dL Normal 2.5-4.9 [facility] Comment on above: Order Comment: Cole lamas Type: BLOOD SPECIMEN Ordering Facility: [facility] Address: [address] [place] [address] Result Comment: Elev ated m-protein (paraprotein) levels in the serum may be exhibited in patients with monoclonal gammopathies, causing falsely elevated inorganic phosphorus results. Performed By: #### 2 4323-8, 42506-8 #### [facility] CLIA [id number] [address] [place] [address] [place] THERAPY NTon 11-20-2023 THERAPY NT HNO ID: [id number] Author: DEV RODRIGUEZ, DRY BOSS Service: Respiratory Therapy Author Type: Registered Resp Therapist Type: Therapy (PT/OT/Speech/Resp) Filed: 11/20/2023 01:26 Note Text: Pt ripped off mask and stated she couldn't breathe RN told her how important it was for her to wear at this time due to O2 issues. Pt will not go back on at this time. [facility] XR CHEST 1V FRONTALon 2023 XR CHEST [...] fluid. No pneumothorax. IMPRESSION: No significant change. Bilingual Patient Support Caseworker: PSCB Transcribe Date/Time: Nov 20 2023 7:04A Dictated by : JEAN CARLOS BLANC MD This examination was interpreted and the report reviewed and electronically signed by: JEAN CARLOS BLANC MD on Nov 20 2023 7:04AM EST [id number] [facility] aPTT PPPon 11-20-2023 aPTT Coag (PPP) [Time] 45.7 s High 23.0-32.4 [facility] Comment on above: Order Comment: Speci men Type: BLOOD SPECIMEN Ordering Facility: [facility] Address: [address] [place] [address] Performed By: #### 2 4323-8, 12072-8 #### [facility] CLIA [id number] [address] [place] [address] [place] ARTERIAL BLOOD GASESon 11-19 Base deficit (BldA) [Moles/Vol] -3 mmol/L Low -2-0 [facility] Comment on above: Order Comment: Speci men Type: BLOOD SPECIMEN Ordering Facility: [facility] Address: [address] [place] [address] Performed By: #### 5 8410-2 #### [facility] CLIA [id number] [address] [place] [address] [place] Body temperature 98.6 [degF] Normal [facility] Comment on above: Order Comment: Speci men Type: BLOOD SPECIMEN Ordering Facility: [facility] Address: [address] [place] [address] Performed By: #### 5 8410-2 #### [facility] CLIA [id number] [address] [place] [address] [place] Calcium.ionized (Bld) [Mass/Vol] 1.17 mmol/L Normal 1.08-1.30 [facility] Comment on above: Order Comment: Speci men Type: BLOOD SPECIMEN Ordering Facility: [facility] Address: [address] [place] [address] Performed By: #### 5 8410-2 #### [facility] CLIA [id number] [address] [place] [address] [place] Carboxyhemoglobin (BldA) [Mass fraction] 0.9 % Normal 0.0-2.0 [facility] Comment on above: Order Comment: Speci men Type: BLOOD SPECIMEN Ordering Facility: [facility] Address: [address] [place] [address] Result Comment: Carb oxyhemoglobin Reference Range for Smokers: 2.0-8.0% Performed By: #### 5 8410-2 #### [facility] CLIA [id number] [address] [place] [address] [place] CO2 (Bld) [Partial pressure] 40 mm Hg Normal 36-46 [facility] Comment on above: Order Comment: Speci men Type: BLOOD SPECIMEN Ordering Facility: [facility] Address: [address] [place] [address] Performed By: #### 5 8410-2 #### [facility] CLIA [id number] [address] [place] [address] [place] FIO2 40 % Normal [facility] Comment on above: Order Comment: Speci men Type: BLOOD SPECIMEN Ordering Facility: [facility] Address: [address] [place] [address] Performed By: #### 5 8410-2 #### [facility] IA [id number] [address] [place] [address] [place] Glucose [Mass/Vol] 86 mg/dL Normal 60-105 [facility] Comment on above: Order Comment: Speci men Type: BLOOD SPECIMEN Ordering Facility: [facility] Address: [address] [place] [address] Performed By: #### 5 8410-2 #### [facility] IA [id number] [address] [place] [address] [place] HCO3 (Bld) [Moles/Vol] 23 mmol/L Normal 22-26 [facility] Comment on above: Order Comment: Speci men Type: BLOOD SPECIMEN Ordering Facility: [facility] Address: [address] [place] [address] Performed By: #### 5 8410-2 #### [facility] IA [id number] [address] [place] [address] [place] Hemoglobin (Bld) [Mass/Vol] 10.9 g/dL Low 11.5-15.5 [facility] Comment on above: Order Comment: Speci men Type: BLOOD SPECIMEN Ordering Facility: [facility] Address: [address] [place] [address] Performed By: #### 5 8410-2 #### [facility] CLIA [id number] [address] [place], [place] [address] [place] Lactate [Moles/Vol] 2.1 mmol/L Normal 0.5-2.2 [facility] Comment on above: Order Comment: Speci men Type: BLOOD SPECIMEN Ordering Facility: [facility] Address: [address] [place] [address] Performed By: #### 5 8410-2 #### [facility] CLIA [id number] [address] [place] [address] [place] Methemoglobin (Bld) [Mass fraction] 0.2 % Normal 0.0-1.5 [facility] Comment on above: Order Comment: Speci men Type: BLOOD SPECIMEN Ordering Facility: [facility] Address: [address] [place] [address] Performed By: #### 5 8410-2 #### [facility] CLIA [id number] [address] [place] [address] [place] O2 THERAPY Positive Normal [facility] Comment on above: Order Comment: Speci men Type: BLOOD SPECIMEN Ordering Facility: [facility] Address: [address] [place] [address] Performed By: #### 5 8410-2 #### [facility] IA [id number] [address] [place] [address] [place] Oxygen (Bld) [Partial pressure] 79 mm Hg Low 85-95 [facility] Comment on above: Order Comment: Speci men Type: BLOOD SPECIMEN Ordering Facility: [facility] Address: [address] [place], [place] [address] Performed By: #### 5 8410-2 #### [facility] CLIA [id number] [address] [place] [address] [place] Oxyhemoglobin (BldA) [Mass fraction] 94 % Low 95-98 [facility] Comment on above: Order Comment: Speci men Type: BLOOD SPECIMEN Ordering Facility: [facility] Address: [address] [place] [address] Performed By: #### 5 8410-2 #### [facility] CLIA [id number] [address] [place] [address] [place] pH (Bld) 7.37 [pH] Normal 7.35-7.45 [facility] Comment on above: Order Comment: Speci men Type: BLOOD SPECIMEN Ordering Facility: [facility] Address: [address] [place] [address] Performed By: #### 5 8410-2 #### [facility] CLIA [id number] [address] [place] [address] [place] PO2 / FIO2 RATIO 198 mmHg Low >300 [facility] Comment on above: Order Comment: Speci men Type: BLOOD SPECIMEN Ordering Facility: [facility] Address: [address] [place] [address] Performed By: #### 5 8410-2 #### [facility] CLIA [id number] [address] [place] [address] [place] Potassium [Moles/Vol] 4.4 mmol/L Normal 2.5-6.0 [facility] Comment on above: Order Comment: Speci men Type: BLOOD SPECIMEN Ordering Facility: [facility] Address: [address] [place] [address] Performed By: #### 5 8410-2 #### [facility] CLIA [id number] [address] [place] [address] [place] Sodium [Moles/Vol] 134 mmol/L Low 136-144 [facility] Comment on above: Order Comment: Speci men Type: BLOOD SPECIMEN Ordering Facility: [facility] Address: [address] [place] [address] Performed By: #### 5 8410-2 #### [facility] CLIA [id number] [address] [place] [address] [place] Base deficit (BldA) [Moles/Vol] -6 mmol/L Low -2-0 [facility] Comment on above: Order Comment: Speci men Type: ARTERIAL BLOOD SPECIMEN Ordering Facility: [facility] Address: [address] [place] [address] Performed By: #### A LLBG #### [facility] CLIA [id number] [address] [place] [address] [place] Body temperature 98.6 [degF] Normal [facility] Comment on above: Order Comment: Speci men Type: ARTERIAL BLOOD SPECIMEN Ordering Facility: [facility] Address: [address] [place] [address] Performed By: #### A LLBG #### [facility] CLIA [id number] [address] [place] [address] [place] Calcium.ionized (Bld) [Mass/Vol] 1.22 mmol/L Normal 1.08-1.30 [facility] Comment on above: Order Comment: Speci men Type: ARTERIAL BLOOD SPECIMEN Ordering Facility: [facility] Address: [address] [place] [address] Performed By: #### A LLBG #### [facility] [place] [id number] [address] [place] [address] [place] Calcium.ionized adjusted to pH 7.4 (BldA) [Moles/Vol] Normal [facility] Comment on above: Order Comment: Speci men Type: ARTERIAL BLOOD SPECIMEN Ordering Facility: [facility] Address: [address] [place] [address] Result Comment: Latrice ured pH is <7.20. Unable to report normalized Calcium. Performed By: #### A LLBG #### [facility] IA [id number] [address] [place] [address] [place] Carboxyhemoglobin (BldA) [Mass fraction] 0.5 % Normal 0.0-2.0 [facility] Comment on above: Order Comment: Speci men Type: ARTERIAL BLOOD SPECIMEN Ordering Facility: [facility] Address: [address] [place] [address] Result Comment: Carb oxyhemoglobin Reference Range for Smokers: 2.0-8.0% Performed By: #### A LLBG #### [facility] CLIA [id number] [address] [place] [address] [place] CO2 (Bld) [Partial pressure] 65 mm Hg High 36-46 [facility] Comment on above: Order Comment: Speci men Type: ARTERIAL BLOOD SPECIMEN Ordering Facility: [facility] Address: [address] [place] [address] Performed By: #### A LLBG #### [facility] CLIA [id number] [address] [place] [address] [place] FIO2 100.0 % Normal [facility] Comment on above: Order Comment: Speci men Type: ARTERIAL BLOOD SPECIMEN Ordering Facility: [facility] Address: [address] [place] [address] Performed By: #### A LLBG #### [facility] CLIA [id number] [address] [place] [address] [place] Glucose [Mass/Vol] 107 mg/dL High 60-105 [facility] Comment on above: Order Comment: Speci men Type: ARTERIAL BLOOD SPECIMEN Ordering Facility: [facility] Address: [address] [place] [address] Performed By: #### A LLBG #### [facility] CLIA [id number] [address] [place] [address] [place] HCO3 (Bld) [Moles/Vol] 24 mmol/L Normal 22-26 [facility] Comment on above: Order Comment: Speci men Type: ARTERIAL BLOOD SPECIMEN Ordering Facility: [facility] Address: [address] [place] [address] Performed By: #### A LLBG #### [facility] CLIA [id number] [address] [place] [address] [place] Hemoglobin (Bld) [Mass/Vol] 12.0 g/dL Normal 11.5-15.5 [facility] Comment on above: Order Comment: Speci men Type: ARTERIAL BLOOD SPECIMEN Ordering Facility: [facility] Address: [address] [place] [address] Performed By: #### A LLBG #### [facility] CLIA [id number] [address] [place] [address] [place] Lactate [Moles/Vol] 5.2 mmol/L High 0.5-2.2 [facility] Comment on above: Order Comment: Speci men Type: ARTERIAL BLOOD SPECIMEN Ordering Facility: [facility] Address: [address] [place] [address] Performed By: #### A LLBG #### [facility] CLIA [id number] [address] [place] [address] [place] Methemoglobin (Bld) [Mass fraction] 0.1 % Normal 0.0-1.5 [facility] Comment on above: Order Comment: Speci men Type: ARTERIAL BLOOD SPECIMEN Ordering Facility: [facility] Address: [address] [place] [address] Performed By: #### A LLBG #### [facility] CLIA [id number] [address] [place] [address] [place] O2 THERAPY NR=Non-Rebreather Mask Normal [facility] Comment on above: Order Comment: Speci men Type: ARTERIAL BLOOD SPECIMEN Ordering Facility: [facility] Address: [address] [place] [address] Performed By: #### A LLBG #### [facility] CLIA [id number] [address] [place] [address] [place] Oxygen (Bld) [Partial pressure] 78 mm Hg Low 85-95 [facility] Comment on above: Order Comment: Speci men Type: ARTERIAL BLOOD SPECIMEN Ordering Facility: [facility] Address: [address] [place] [address] Performed By: #### A LLBG #### [facility] CLIA [id number] [address] [place] [address] [place] [place] Oxyhemoglobin (BldA) [Mass fraction] 90 % Low 95-98 [facility] Comment on above: Order Comment: Speci men Type: ARTERIAL BLOOD SPECIMEN Ordering Facility: [facility] Address: [address] [place] [address] Performed By: #### A LLBG #### [facility] CLIA [id number] [address] [place] [address] [place] pH (Bld) 7.18 [pH] Critically low 7.35-7.45 [facility] Comment on above: Order Comment: Speci men Type: ARTERIAL BLOOD SPECIMEN Ordering Facility: [facility] Address: [address] [place] [address] Performed By: #### A LLBG #### [facility] CLIA [id number] [address] [place] [address] [place] PO2 / FIO2 RATIO 78 mmHg Low >300 [facility] Comment on above: Order Comment: Speci men Type: ARTERIAL BLOOD SPECIMEN Ordering Facility: [facility] Address: [address] [place] [address] Performed By: #### A LLBG #### [facility] CLIA [id number] [address] [place] [address] [place] Potassium [Moles/Vol] 4.0 mmol/L Normal 2.5-6.0 [facility] Comment on above: Order Comment: Speci men Type: ARTERIAL BLOOD SPECIMEN Ordering Facility: [facility] Address: [address] [place] [address] Performed By: #### A LLBG #### [facility] CLIA [id number] [address] [place] [address] [place] Sodium [Moles/Vol] 136 mmol/L Normal 136-144 [facility] Comment on above: Order Comment: Speci men Type: ARTERIAL BLOOD SPECIMEN Ordering Facility: [facility] Address: [address] [place] [address] Performed By: #### A LLBG #### [facility] CLIA [id number] [address] [place] [address] [place] Ammonia Plas-sCncon 11-19-19 24 Ammonia (P) [Moles/Vol] 20 umol/L Normal 11-32 [facility] Comment on above: Order Comment: Speci men Type: BLOOD SPECIMEN Ordering Facility: [facility] Address: [address] [place] [address] Result Comment: Resu lts may be falsely depressed after the administration of Sulfapyridine. Results may be falsely elevated after the administration of Sulfasalazine. Performed By: #### 1 6362-6 #### [facility] CLIA [id number] [address] [place] [address] OF [facility] Bacteria Bld Culton 11-19-19 Bacteria identified Cx Nom (Bld) CULTURE, BLOOD: No growth 5 days Normal [facility] Comment on above: Performed By: #### 6 00-7 ####[facility] [id number] [address] OF [place] Bacteria identified Cx Nom (Bld) CULTURE, BLOOD: No growth 5 days Normal [facility] Comment on above: Performed By: #### 6 00-7 ####[facility] [id number] [address] OF [place] CBC panel Auto (Bld)on 11-19 Erythrocyte distribution width (RBC) [Ratio] 24.2 % High 11.5-15.0 [facility] Comment on above: Order Comment: Speci men Type: BLOOD SPECIMEN Ordering Facility: [facility] Address: [address] [place] [address] Performed By: #### 5 8410-2 #### [facility] CLIA [id number] [address] [place] [address] OF [place] Hematocrit (Bld) [Volume fraction] 30.3 % Low 36.0-46.0 [facility] Comment on above: Order Comment: Speci men Type: BLOOD SPECIMEN Ordering Facility: [facility] Address: [address] [place] [address] Performed By: #### 5 8410-2 #### [facility] CLIA [id number] [address] [place] [address] [place] Hemoglobin (Bld) [Mass/Vol] 9.4 g/dL Low 11.5-15.5 [facility] Comment on above: Order Comment: Speci men Type: BLOOD SPECIMEN Ordering Facility: [facility] Address: [address] [place] [address] Performed By: #### 5 8410-2 #### [facility] CLIA [id number] [address] [place] [address] MCH (RBC) [Entitic mass] 23.6 pg Low 26.0-34.0 [facility] Comment on above: Order Comment: Speci men Type: BLOOD SPECIMEN Ordering Facility: [facility] Address: [address] [place] [address] Performed By: #### 5 8410-2 #### [facility] CLIA [id number] [address] [place] [address] [place] MCHC (RBC) [Mass/Vol] 31.0 g/dL Normal 30.5-36.0 [facility] Comment on above: Order Comment: Speci men Type: BLOOD SPECIMEN Ordering Facility: [facility] Address: [address] [place] [address] Performed By: #### 5 8410-2 #### [facility] CLIA [id number] [address] [place] [address] OF [place] MCV (RBC) [Entitic vol] 76.1 fL Low 80.0-100.0 [facility] Comment on above: Order Comment: Speci men Type: BLOOD SPECIMEN Ordering Facility: [facility] Address: [address] [place] [address] Performed By: #### 5 8410-2 #### [facility] CLIA [id number] [address] [place] [address] OF [place] Nucleated RBC (Bld) [#/Vol] 10*3/uL Normal <0.01 [facility] Comment on above: Order Comment: Speci men Type: BLOOD SPECIMEN Ordering Facility: [facility] Address: [address] [place] [address] Performed By: #### 5 8410-2 #### [facility] CLIA [id number] [address] [place] [address] [place] Platelet mean volume (Bld) [Entitic vol] Normal [facility] Comment on above: Order Comment: Speci men Type: BLOOD SPECIMEN Ordering Facility: [facility] Address: [address] [place] [address] Result Comment: Unab le to Report. Performed By: #### 5 8410-2 #### [facility] CLIA [id number] [address] [place] [address] [place] Platelets (Bld) [#/Vol] 80 10*3/uL Low 150-400 [facility] Comment on above: Order Comment: Speci men Type: BLOOD SPECIMEN Ordering Facility: [facility] Address: [address] [place] [address] Result Comment: Resu lts checked and verified.No clot detected. Performed By: #### 5 8410-2 #### [facility] CLIA [id number] [address] [place] [address] [place] RBC (Bld) [#/Vol] 3.98 10*6/uL Normal 3.90-5.20 [facility] Comment on above: Order Comment: Speci men Type: BLOOD SPECIMEN Ordering Facility: [facility] Address: [address] [place] [address] Performed By: #### 5 8410-2 #### [facility] CLIA [id number] [address] [place] [address] [place] WBC (Bld) [#/Vol] 13.45 10*3/uL High 3.70-11.00 [facility] Comment on above: Order Comment: Speci men Type: BLOOD SPECIMEN Ordering Facility: [facility] Address: [address] [place] [address] Performed By: #### 5 8410-2 #### [facility] CLIA [id number] [address] [place] [address] OF [facility] CONSULTon 11-19-2023 CONSULT HNO ID: [id number] Author: MARIAH TRAVIS APRN.TRAVELING PASSENGER AGENT Service: Critical Care Author Type: Nurse Practitioner Type: Consults Filed: 11/19/2023 11:45 Note Text: [facility] SERVICE DATE: November 19, 2023 SERVICE TIME: 0800 Consulting Doctor: Dr. Molina CHIEF COMPLAINT: AMS HPI: This 48 year old female initially presented to [facility] emergency department for abdominal pain, patient met sepsis criteria and required paracentesis rule out SBP which is not available at this hospital therefore she was transferred to [facility]. This morning a rapid response [...] PAST SURGICAL HISTORY OF 2018 liver bx [facility] FAMILY HISTORY Problem Relation Age of Onset [...] as possible-Meth last used beginning of [facility] MEDICATIONS: gabapentin (NEURONTIN) 100 mg capsuleTake [...] and shortness (more content not included)... Normal [facility] CT ABD/PEL W IVCONon 024 CT ABD/PEL W IVCON * * *Final Report* * * DATE OF EXAM: Nov 19 2023 7:15AM [facility] 0530 - CT ABD/PEL W IVCON / [...] the bilateral lungs, greater on the left. Regulator Pin Inserter (topogram) images: No additional findings. IMPRESSION: 1. [...] bowel, likely reactive to ascites. Dictated by Hoisting Laborer: Arun Mena MD I, Sam Henderson MD, have supervised the procedure and/or image review, and agree with the above interpretation and report. Bilingual Patient Support Caseworker: PSCB Transcribe Date/Time: Nov 19 2023 7:18A Dictated by : ARUN MENA, This examination was interpreted and the report reviewed and electronically signed by: SAM HENDERSON MD on Nov 19 2023 7:54AM EST [id number] Normal [facility] Comprehensive metabolic 2000 panelon 11-19-2023 Albumin [Mass/Vol] 1.9 g/dL Low 3.2-5.0 [facility] Comment on above: Order Comment: Speci men Type: BLOOD SPECIMEN Ordering Facility: [facility] Address: [facility] [place] [address] Performed By: #### 2 4323-8, 32227-0 #### [facility] CLIA [id number] [address] [place] [address] [place] ALP [Catalytic activity/Vol] 158 U/L High 45-117 [facility] Comment on above: Order Comment: Speci men Type: BLOOD SPECIMEN Ordering Facility: [facility] Address: [address] [place] [address] Performed By: #### 2 4323-8, #### [facility] CLIA [id number] [address] [place] [address] [place] ALT [Catalytic activity/Vol] 31 U/L Normal 13-61 [facility] Comment on above: Order Comment: Speci men Type: BLOOD SPECIMEN Ordering Facility: [facility] Address: [address] [place] [address] Result Comment: Resu lts may be falsely depressed after the administration of Sulfasalazine and/or Sulfapyridine. Performed By: #### 2 4323-8, #### [facility] CLIA [id number] [address] [place] [address] [place] Anion gap [Moles/Vol] 3 mmol/L Low 5-16 [facility] Comment on above: Order Comment: Speci men Type: BLOOD SPECIMEN Ordering Facility: [facility] Address: [address] [place] [address] Performed By: #### 2 4323-8, #### [facility] CLIA [id number] [address] [place] [address] [place] AST [Catalytic activity/Vol] 65 U/L High 8-34 [facility] Comment on above: Order Comment: Speci men Type: BLOOD SPECIMEN Ordering Facility: [facility] Address: [address] [place] [address] Result Comment: Resu lts may be falsely depressed after the administration of Sulfasalazine and/or Sulfapyridine. Performed By: #### 2 4323-8, #### [facility] CLIA [id number] [address] [place], [place] [address] [place] Bilirubin [Mass/Vol] 2.2 mg/dL High 0.2-1.0 [facility] Comment on above: Order Comment: Speci men Type: BLOOD SPECIMEN Ordering Facility: [facility] Address: [address] [place] [address] Performed By: #### 2 4323-8, #### [facility] CLIA [id number] [address] [place], [place] [address] [place] Calcium [Mass/Vol] 8.5 mg/dL Normal 8.5-10.5 [facility] Comment on above: Order Comment: Speci men Type: BLOOD SPECIMEN Ordering Facility: [facility] Address: [address] [place] [address] Performed By: #### 2 4323-8, #### [facility] CLIA [id number] [address] [place], [place] [address] [place] Chloride [Moles/Vol] 106 mmol/L Normal 98-107 [facility] Comment on above: Order Comment: Speci men Type: BLOOD SPECIMEN Ordering Facility: [facility] Address: [address] [place] [address] Performed By: #### 2 432-8, #### [facility] CLIA [id number] [address] [place] [address] [place] CO2 [Moles/Vol] 28 mmol/L Normal 21-32 [facility] Comment on above: Order Comment: Speci men Type: BLOOD SPECIMEN Ordering Facility: [facility] Address: [address] [place] [address] Performed By: #### 2 4323-8, #### [facility] CLIA [id number] [address] [place] [address] [place] Creatinine [Mass/Vol] 0.68 mg/dL Normal 0.51-0.95 [facility] Comment on above: Order Comment: Speci men Type: BLOOD SPECIMEN Ordering Facility: [facility] Address: [address] [place] [address] Result Comment: Tamie ents receiving either N-Acetylcysteine (NAC) or Metamizole prior to venipuncture, may have falsely depressed results. Performed By: #### 2 432 #### [facility] CLIA [id number] [address] [place] [address] [place] Creatinine and Glomerular filtration rate.predicted panel (S/P/Bld) 106 mL/min/1.73m??? Normal >=60 [facility] Comment on above: Order Comment: Cole lamas Type: BLOOD SPECIMEN Ordering Facility: [facility] Address: [address] [place] [address] Result Comment: Connie mated Glomerular Filtration Rate [...] actual GFR. Performed By: #### 2 4323-8, 20636-8 #### [facility] CLIA [id number] [address] [place] [address] [place] Glucose [Mass/Vol] 89 mg/dL Normal 70-100 [facility] Comment on above: Order Comment: Cole lamas Type: BLOOD SPECIMEN Ordering Facility: [facility] Address: [address] [place] [address] Result Comment: The [place] Diabetes Association (ADA) provides guidance for cutoff [...] Standards of Medical Care in Diabetes 2016, [place] Diabetes Association. Diabetes Care. 2016.39(Suppl 1). Results may be falsely elevated after the administration of Sulfapyridine. Results may be falsely depressed after the administration of Sulfasalazine. Performed By: #### 2 4323-8, #### [facility] CLIA [id number] [address] [place], [place] [address] [place] Potassium [Moles/Vol] 4.1 mmol/L Normal 3.5-5.1 [facility] Comment on above: Order Comment: Speci men Type: BLOOD SPECIMEN Ordering Facility: [facility] Address: [address] [place] [address] Performed By: #### 2 4323-8, #### [facility] CLIA [id number] [address] [place] [address] [place] Protein [Mass/Vol] 6.8 g/dL Normal 6.0-8.5 [facility] Comment on above: Order Comment: Speci men Type: BLOOD SPECIMEN Ordering Facility: [facility] Address: [address] [place] [address] Performed By: #### 2 4323-8, #### [facility] CLIA [id number] [address] [place] [address] [place] Sodium [Moles/Vol] 137 mmol/L Normal 136-145 [facility] Comment on above: Order Comment: Speci men Type: BLOOD SPECIMEN Ordering Facility: [facility] Address: [address] [place] [address] Performed By: #### 2 4323-8, #### [facility] CLIA [id number] [address] [place] [address] [place] Urea nitrogen [Mass/Vol] 11 mg/dL Normal 7-26 [facility] Comment on above: Order Comment: Speci men Type: BLOOD SPECIMEN Ordering Facility: [facility] Address: [address] [place] [address] Performed By: #### 2 4323-8, #### [facility] CLIA [id number] [address] [place], [place] [address] [place] HCV RNA SerPl PHYLLIS+probe-aCnc on 11-19-2023 HCV RNA PHYLLIS+probe Qn Abnormal HCV RNA not detected by PCR. [facility] Comment on above: Order Comment: Speci men Type: BLOOD SPECIMEN Ordering Facility: [facility] Address: [address] [place] [address] Result Comment: HCV RNA detected by PCR. 03570 4.58 Performed By: #### 2 4323-8, 05877-9 #### [facility] CLIA [id number] [address] [place] [address] [place] HISTORY PHYSICALon HISTORY PHYSICAL HNO ID: [id number] Author: ELVIN MERAZ DO Service: Hospital Medicine [...] she has been evaluated multiple times at [facility] for similar symptoms. Paracentesis has been [...] PAST SURGICAL HISTORY OF 2018 liver bx [facility] FAMILY HISTORY: FAMILY HISTORY Problem Relation Age [...] -- -- -- -- 157.5 cm (5' 2") 86.6 kg (191 lb) 11/18/23 1644 112/62 [...] or br (more content not included)... Normal [facility] Iron and Iron binding capaci ty panelon 11-19-2023 Iron [Mass/Vol] 43 ug/dL Low 50-170 [facility] Comment on above: Order Comment: Cole lamas Type: BLOOD SPECIMEN Ordering Facility: [facility] Address: [address] [place] [address] Result Comment: Tamie ents treated with metal-binding drugs (e.g.deferoxamine) may have depressed iron values, as chelated iron may not properly react in the Siemens iron assay. Performed By: #### 3 3959-8, 26071-6 #### [facility] CLIA [id number] [facility] [place] [address] [place] Iron binding capacity [Mass/Vol] 286 ug/dL Normal 221-481 [facility] Comment on above: Order Comment: Cole lamas Type: BLOOD SPECIMEN Ordering Facility: [facility] Address: [address] [place] [address] Performed By: #### 3 3959-8, 65972-0 #### [facility] CLIA [id number] [address] [place], [place] [address] [place] Iron/TIBC [Molar ratio] 15.0 % Low 22.0-44.0 [facility] Comment on above: Order Comment: Speci men Type: BLOOD SPECIMEN Ordering Facility: [facility] Address: [address] [place] [address] Performed By: #### 3 3959-8, 68763-9 #### [facility] CLIA [id number] [address] [place] [address] [place] Lactate (Bld) [Moles/Vol]on 11-19-2023 Lactate [Moles/Vol] 5.3 mmol/L High 0.4-2.0 [facility] Comment on above: Order Comment: Speci men Type: BLOOD SPECIMEN Ordering Facility: [facility] Address: [address] [place] [address] Result Comment: CALL CRITICAL Performed By: #### 2 4323-8, 20342-4 #### [facility] CLIA [id number] [address] [place] [address] [place] Lactate [Moles/Vol] 2.9 mmol/L High 0.4-2.0 [facility] Comment on above: Order Comment: Speci men Type: BLOOD SPECIMEN Ordering Facility: [facility] Address: [address] [place] [address] Performed By: #### 5 8410-2 #### [facility] CLIA [id number] [address] [place] [address] [place] Lactate [Moles/Vol] 5.1 mmol/L High 0.4-2.0 [facility] Comment on above: Order Comment: Speci men Type: BLOOD SPECIMEN Ordering Facility: [facility] Address: [address] [place] [address] Result Comment: CALL CRITICAL Performed By: #### 3 2693-4 #### [facility] CLIA [id number] [address] [place], [place] [address] [facility] [place] Legionella Ag Ur Qlon 2023 Legionella sp Ag Ql (U) Negative Normal Negative [facility] Comment on above: Order Comment: Speci men Type: BLOOD SPECIMEN Ordering Facility: [facility] Address: [facility] [place] [address] Performed By: #### 5 8410-2 #### [facility] CLIA [id number] [address] [place], [place] [address] [facility] MEDICAL EMERon 11-19-2023 MEDICAL JACQUIE HNO ID: [id number] Author: JAMES LEO APRN.TRAVELING PASSENGER AGENT Service: Hospital Medicine Author Type: Nurse Practitioner [...] needed, move the patient to ICU. Normal [facility] Magnesium SerPl-mCncon 11-19 Magnesium [Mass/Vol] 1.5 mg/dL Low 1.6-2.6 [facility] Comment on above: Order Comment: Specchyna cydney Type: BLOOD SPECIMEN Ordering Facility: [facility] Address: [address] [place] [address] Performed By: #### 2 4323-8, 39383-1 #### [facility] CLIA [id number] [address] [place] [address] [place] Procalcitonin SerPl-mCncon 0 11-19-2023 Procalcitonin [Mass/Vol] 5.62 ng/mL High 0.00-0.50 [facility] Comment on above: Order Comment: Speci cydney Type: BLOOD SPECIMEN Ordering Facility: [facility] Address: [address] [place] [address] Result Comment: PCT Concentration Interpretation PCT <=0.1 [...] septic shock. Performed By: #### 3 3959-8, 12920-1 #### [facility] CLIA [id number] [address] [place] [address] [place] STREPTOCOCCUS PNEUMONIAE AGo n 11-19-2023 STREPTOCOCCUS PNEUMONIAE AG STREP PNEUMO AG RESULT: Negative for Streptococcus pneumoniae antigen. Presumptive negative for pneumococcal pneumonia, suggesting no current or recent pneumococcal infection. Infection due to S.pneumoniae cannot be ruled out since the antigen present in the sample may be below the detection limit of the test. Normal [facility] Comment on above: Performed By: #### 5 8410-2 #### [facility] CLIA [id number] [address] [place] [address] [place] XR CHEST 1V [...] related to patient's garments. No definite pneumothorax Bilingual Patient Support Caseworker[facility] Transcribe Date/Time: Nov 19 2023 8:47A Dictated by : SAM HENDERSON MD This examination was interpreted and the report reviewed and electronically signed by: SAM HENDERSON MD on Nov 19 2023 8:54AM EST [id number] [facility] ALLIED HEALTHon 11-18-2023 ALLIED HEALTH HNO ID: [id number] Author: [facility] RT(Noel) Service: Radiology Author [...] PATIENT PRESENTS WITH AN IMPLANTABLE OR ATTACHED PULVERIZER FEEDER: No ALLERGIES: Reviewed and unchanged CONTRAST ALLERGY: [...] November 19, 2023 TIME: 7:14 AM [facility] ED NOTEon 11-18-2023 ED NOTE HNO ID: [id number] Author: MIKE HUTCHISON RN Service: Emergency Medicine Author Type: Registered Nurse Type: ED Notes Filed: 11/18/2023 15:50 Note Text: Second attempt to call report made, placed back on hold [facility] ED NOTE HNO ID: [id number] Author: MIKE HUTCHISON RN Service: Emergency Medicine Author Type: Registered Nurse Type: ED Notes Filed: 11/18/2023 15:49 Note Text: Attempted to call report on patient, placed on hold for 15 mins unable to give report. [facility] ED NOTE HNO ID: [id number] Author: MIKE HUTCHISON RN Service: Emergency Medicine Author Type: Registered Nurse Type: ED Notes Filed: 11/18/2023 16:05 Note Text: Patient assisted to bedside toilet, clean depends given. Offered patient wipes to clean herself up with patient wiped hands and refused to clean rest of stool off. Transport at bedside for report. [facility] ED NOTE HNO ID: [id number] Author: MIKE HUTCHISON RN Service: Emergency Medicine Author Type: Registered Nurse Type: ED Notes Filed: 11/18/2023 14:15 Note Text: [facility] ETA: 60-90mins [facility] ED NOTE HNO ID: [id number] Author: MIKE HUTCHISON RN Service: Emergency Medicine Author Type: Registered Nurse Type: ED Notes Filed: 11/18/2023 14:10 Note Text: Accepted to [facility] [phone] Nurse to Nurse [phone] [facility] ED NOTE HNO ID: [id number] Author: MIKE HUTCHISON RN Service: Emergency Medicine Author Type: Registered Nurse Type: ED Notes Filed: 11/18/2023 16:15 Note Text: Pt data reduction technician light for having BM in depends and [...] socks. Patient then assisted back to bed. [facility] ED NOTE HNO ID: [id number] Author: MIKE HUTCHISON RN Service: Emergency Medicine Author Type: Registered Nurse Type: ED Notes Filed: 11/18/2023 09:16 Note Text: [facility] contacted by this nurse they state they are unsure when the patient will have a bed assignment. [facility] ED NOTE HNO ID: [id number] Author: MIKE HUTCHISON RN Service: Emergency Medicine Author Type: Registered Nurse Type: ED Notes Filed: 11/18/2023 16:08 Note Text: Patient had liquid BM in bed, patient assisted to bedside toilet bedding changed, clean gown given, depends given to patient, clean gown given, patient assisted back to bed. [facility] ED NOTE HNO ID: [id number] Author: MIKE HUTCHISON RN Service: Emergency Medicine Author Type: Registered Nurse Type: ED Notes Filed: 11/18/2023 09:23 Note Text: Respiratory paged for breathing treatment [facility] ED NOTE HNO ID: [id number] Author: MIKE HUTCHISON RN Service: Emergency Medicine [...] in her nose. Dr Peterson to bedside. [facility] ED NOTE HNO ID: [id number] Author: MIKE HUTCHISON RN Service: Emergency Medicine Author Type: Registered Nurse Type: ED Notes Filed: 11/18/2023 09:19 Note Text: Patient requesting to walk to the restroom, patient assisted to the restroom [facility] ED NOTE HNO ID: [id number] Author: MIKE HUTCHISON RN Service: Emergency Medicine Author Type: Registered Nurse Type: ED Notes Filed: 11/18/2023 09:19 Note Text: Meal tray given [facility] ED NOTE HNO ID: [id number] Author: MIKE HUTCHISON RN Service: Emergency Medicine Author Type: Registered Nurse Type: ED Notes Filed: 11/18/2023 08:02 Note Text: This nurse woke patient up, patient repositioned. Oxygen placed back on. Meal tray ordered. Patient denies other needs at this time. [facility] ED NOTE HNO ID: [id number] Author: JIMI DOMINGEUZ RN Service: Emergency Medicine Author Type: Registered Nurse Type: ED Notes Filed: 11/18/2023 05:37 Note Text: Patient removed oxygen and will not keep pulse ox on. Call light remains in reach. SRx2 up. [facility] ED NOTE HNO ID: [id number] Author: JIMI DOMINGUEZ RN Service: Emergency Medicine Author Type: Registered Nurse Type: ED Notes Filed: 11/18/2023 05:08 Note Text: MD speaking with patient regarding pain control. [facility] ED NOTE HNO ID: [id number] Author: JIMI DOMINGUEZ RN Service: Emergency Medicine Author Type: Registered Nurse Type: ED Notes Filed: 11/18/2023 04:33 Note Text: Patient ambulatory to RR with steady gait- po fluids given. Call light in reach [facility] ED NOTE HNO ID: [id number] Author: JIMI DOMINGUEZ RN Service: Emergency Medicine Author Type: Registered Nurse Type: ED Notes Filed: 11/18/2023 02:50 Note Text: Oxygen sats improved with oxygen while resting/sleeping to 96% on 2 liters [facility] ED NOTE HNO ID: [id number] Author: JIMI DOMINGUEZ RN Service: Emergency Medicine Author Type: Registered Nurse Type: ED Notes Filed: 11/18/2023 02:47 Note Text: Patient falling asleep and oxygen sats drop to 87-88% - oxygen applied at 2 liters [facility] ED NOTE HNO ID: [id number] Author: JIMI DOMINGUEZ RN Service: Emergency Medicine Author Type: Registered Nurse Type: ED Notes Filed: 11/18/2023 02:30 Note Text: Patient put data reduction technician light - requesting more ibuprofen and/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 Advised patient she just had motrin at 2347. Patient requesting TV on. [facility] ED NOTE HNO ID: [id number] Author: JIMI DOMINGUEZ, NASH Service: Emergency Medicine Author Type: Registered Nurse Type: ED Notes Filed: 11/18/2023 02:59 Note Text: Sprite given along with jello and pudding. Call light in reach. No n/v [facility] ED NOTE HNO ID: [id number] Author: JIMI DOMINGUEZ RN Service: Emergency Medicine Author Type: Registered Nurse Type: ED Notes Filed: 11/18/2023 01:42 Note Text: Patient data reduction technician light - patient given another blanket. Patient requesting personal cell phone which was charging and given to patient. [facility] ED NOTE HNO ID: [id number] Author: JIMI DOMINGUEZ RN Service: Emergency Medicine Author Type: Registered Nurse Type: ED Notes Filed: 11/18/2023 01:10 Note Text: Patient upset and stating" I should just leave if he is not going to give me something stronger for my pain all over" This nurse advised patient she has every right to leave AMA but it is in her best interest and health if she stays and gets admitted. This nurse updated patient also on bed status at [facility] and that it could possibly be in the morning before we get a bed. Call light in reach. [facility] ED NOTE HNO ID: [id number] Author: JIMI DOMINGUEZ RN Service: Emergency Medicine Author Type: Registered Nurse Type: ED Notes Filed: 11/18/2023 00:48 Note Text: Patient requesting more pain meds and/or something to sleep. MD at bedside talking with patient [facility] ALLIED HEALTHon 11-17-2023 ALLIED HEALTH HNO ID: [id number] Author: MAURICE KUHN TECHNOLOGIST Service: Radiology Author [...] PATIENT PRESENTS WITH AN IMPLANTABLE OR ATTACHED PULVERIZER FEEDER: No RADIOLOGY DEPARTMENT: CT; Exam(s) Completed: Brain and General X-ray: Exam(s) Completed: Chest X-Ray PERIPHERAL IV DATA: Not applicable SIGNED BY: TECHNOLOGIST Marina November 17, 2023 8:44 PM [facility] APAP SerPl-mCncon 11-17-2023 Acetaminophen [Mass/Vol] 8 ug/mL Low 10-30 [facility] Comment on above: Order Comment: Speci men Type: BLOOD SPECIMENOrdering Facility: [facility] Address: [address] [place] [address] Result Comment: Toxi c > 150 ug/mL 4 hours post ingestion The [address] Varghese nomogram can be used to estimate the probability of hepatotoxicity via the relationship of plasma acetaminophen concentration to the post ingestion interval. (Sara. Pediatrics. 1975. 55:[address] et al[address] Arch Warp[place] Med. 1981. 141:380 to 385). Reference ranges and high/low indicator flags are provided as general guidelines only. The treating physician must determine appropriate target levels/dosing based on the specific clinical situation. Performed By: #### 3 298-7, 5643-2, 4024-6 ####[facility] [place] LABCLIA [id number] [place] [address] [place] CBC W Auto Differential pane l (Bld)on 11-17-2023 Basophils (Bld) [#/Vol] 0.03 10*3/uL Normal <0.11 [facility] Comment on above: Order Comment: Speci men Type: BLOOD SPECIMENOrdering Facility: [facility] Address: [address] [place] [address] Performed By: #### 5 7021-8 ####[facility] LABCLIA [id number] [place] [address] [place] Basophils/100 WBC (Bld) 0.3 % [facility] Comment on above: Order Comment: Speci men Type: BLOOD SPECIMENOrdering Facility: [facility] Address: [address] [place] [address] Result Comment: Diff erential confirmed by visual scan of peripheral blood smear slide. Performed By: #### 5 7021-8 ####[facility] LABCLIA [id number] [place] [id number] [facility] Differential cell count method Nom (Bld) Auto [facility] Comment on above: Order Comment: Speci men Type: BLOOD SPECIMENOrdering Facility: [facility] Address: [address] [place] [address] Performed By: #### 5 7021-8 ####[facility] LABCLIA [id number] [place] [address] [place] Eosinophils (Bld) [#/Vol] 0.09 10*3/uL Normal <0.46 [facility] Comment on above: Order Comment: Speci men Type: BLOOD SPECIMENOrdering Facility: [facility] Address: [address] [place] [address] Performed By: #### 5 7021-8 ####[facility] LABCLIA [id number] [place] [address] [place] Eosinophils/100 WBC (Bld) 0.8 % [facility] Comment on above: Order Comment: Speci men Type: BLOOD SPECIMENOrdering Facility: [facility] Address: [address] [place] [address] Performed By: #### 5 7021-8 ####[facility] [place] LABCLIA [id number] [place] [address] [place] Erythrocyte distribution width (RBC) [Ratio] 23.6 % High 11.5-15.0 [facility] Comment on above: Order Comment: Speci men Type: BLOOD SPECIMENOrdering Facility: [facility] Address: [address] [place] [address] Performed By: #### 5 7021-8 ####[facility] [place] LABCLIA [id number] [place] [address] [place] Hematocrit (Bld) [Volume fraction] 33.8 % Low 36.0-46.0 [facility] Comment on above: Order Comment: Speci men Type: BLOOD SPECIMENOrdering Facility: [facility] Address: [address] [place] [address] Performed By: #### 5 7021-8 ####[facility] LABCLIA [id number] [place] [address] [place] Hemoglobin (Bld) [Mass/Vol] 10.3 g/dL Low 11.5-15.5 [facility] Comment on above: Order Comment: Speci men Type: BLOOD SPECIMENOrdering Facility: [facility] Address: [address] [place] [address] Performed By: #### 5 7021-8 ####[facility] LABCLIA [id number] [facility] [place] [address] [place] Immature granulocytes (Bld) [#/Vol] 0.08 10*3/uL Normal <0.10 [facility] Comment on above: Order Comment: Speci men Type: BLOOD SPECIMENOrdering Facility: [facility] Address: [address] [place] [address] Performed By: #### 5 7021-8 ####[facility] LABCLIA [id number] [place] [address] [place] [facility] Immature granulocytes/100 WBC (Bld) 0.7 % [facility] Comment on above: Order Comment: Speci men Type: BLOOD SPECIMENOrdering Facility: [facility] Address: [address] [place] [address] Performed By: #### 5 7021-8 ####[facility] [place] LABCLIA [id number] [place] [address] [place] Lymphocytes (Bld) [#/Vol] 2.43 10*3/uL Normal 1.00-4.00 [facility] Comment on above: Order Comment: Speci men Type: BLOOD SPECIMENOrdering Facility: [facility] Address: [address] [place] [address] Performed By: #### 5 7021-8 ####[facility] LABCLIA [id number] [address] Lymphocytes/100 WBC (Bld) 21.1 % [facility] Comment on above: Order Comment: Speci men Type: BLOOD SPECIMENOrdering Facility: [facility] Address: [address] [place] [address] Performed By: #### 5 7021-8 ####[facility] LABCLIA [id number] [place] [id number] [place] MCH (RBC) [Entitic mass] 23.7 pg Low 26.0-34.0 [facility] Comment on above: Order Comment: Speci men Type: BLOOD SPECIMENOrdering Facility: [facility] Address: [address] [place] [address] Performed By: #### 5 7021-8 ####[facility] [place] LABCLIA [id number] [place] [id number] [place] MCHC (RBC) [Mass/Vol] 30.5 g/dL Normal 30.5-36.0 [facility] Comment on above: Order Comment: Speci men Type: BLOOD SPECIMENOrdering Facility: [facility] Address: [address] [place] [address] Performed By: #### 5 7021-8 ####[facility] LABCLIA [id number] [place] [address] [place] MCV (RBC) [Entitic vol] 77.7 fL Low 80.0-100.0 [facility] Comment on above: Order Comment: Speci men Type: BLOOD SPECIMENOrdering Facility: [facility] Address: [address] [place] [address] Performed By: #### 5 7021-8 ####[facility] [place] LABCLIA [id number] [place] [address] [place] Monocytes (Bld) [#/Vol] 1.40 10*3/uL High <0.87 [facility] Comment on above: Order Comment: Speci men Type: BLOOD SPECIMENOrdering Facility: [facility] Address: [address] [place] [address] Performed By: #### 5 7021-8 ####[facility] LABCLIA [id number] [facility] [place] [place] [address] [place] Monocytes/100 WBC (Bld) 12.2 % [facility] Comment on above: Order Comment: Speci men Type: BLOOD SPECIMENOrdering Facility: [facility] Address: [address] [place] [address] Performed By: #### 5 7021-8 ####[facility] LABCLIA [id number] [facility] [place] [place] [address] [place] Neutrophils (Bld) [#/Vol] 7.47 10*3/uL Normal 1.45-7.50 [facility] Comment on above: Order Comment: Speci men Type: BLOOD SPECIMENOrdering Facility: [facility] Address: [address] [place] [address] Performed By: #### 5 7021-8 ####[facility] LABCLIA [id number] [place] [address] [place] Neutrophils/100 WBC (Bld) 64.9 % [facility] Comment on above: Order Comment: Speci men Type: BLOOD SPECIMENOrdering Facility: [facility] Address: [address] [place] [address] Performed By: #### 5 7021-8 ####[facility] [place] LABCLIA [id number] [place] [address] [place] Nucleated RBC (Bld) [#/Vol] [facility] Comment on above: Order Comment: Speci men Type: BLOOD SPECIMENOrdering Facility: [facility] Address: [address] [place] [address] Performed By: #### 5 7021-8 ####[facility] [place] LABCLIA [id number] [place] [address] [place] Nucleated RBC/100 WBC (Bld) [Ratio] [facility] Comment on above: Order Comment: Speci men Type: BLOOD SPECIMENOrdering Facility: [facility] Address: [address] [place] [address] Performed By: #### 5 7021-8 ####[facility] [place] LABCLIA [id number] [place] [address] [place] Platelet mean volume (Bld) [Entitic vol] 9.8 fL Normal 9.0-12.7 [facility] Comment on above: Order Comment: Speci men Type: BLOOD SPECIMENOrdering Facility: [facility] Address: [address] [place] [address] Performed By: #### 5 7021-8 ####[facility] [place] LABCLIA [id number] [place] [address] [place] Platelets (Bld) [#/Vol] 112 10*3/uL Low 150-400 [facility] Comment on above: Order Comment: Speci men Type: BLOOD SPECIMENOrdering Facility: [facility] Address: [address] [place] [address] Result Comment: no c lot detected Platelet Abnormal Distribution.Reviewed. Performed By: #### 5 7021-8 ####[facility] [place] LABCLIA [id number] [place] [address] [facility] RBC (Bld) [#/Vol] 4.35 10*6/uL Normal 3.90-5.20 [facility] Comment on above: Order Comment: Speci men Type: BLOOD SPECIMENOrdering Facility: [facility] Address: [address] [place] [address] Performed By: #### 5 7021-8 ####[facility] [id number] [place] [address] [facility] WBC (Bld) [#/Vol] 11.50 10*3/uL High 3.70-11.00 [facility] Comment on above: Order Comment: Speci men Type: BLOOD SPECIMENOrdering Facility: [facility] Address: [address] [place] [address] Performed By: #### 5 7021-8 ####[facility] [id number] [place] [id number] [facility] CT BRAIN WO IVCONon 11-17-[address] BRAIN WO IVCON * * *Final Report* * * DATE OF EXAM: Nov 17 2023 8:40PM [facility] 0504 - CT BRAIN WO IVCON [...] control(AEC) and iterative recon COMPARISON: None. RESULT: Regulator Pin Inserter (topogram) images: No additional findings. Post-operative change: [...] are unremarkable. IMPRESSION: No acute intracranial abnormality. Bilingual Patient Support Caseworker: POOJA Transcribe Date/Time: Nov 17 2023 8:41P Dictated by : MAYITO STEVENS MD This examination was interpreted and the report reviewed and electronically signed by: MAYITO STEVENS MD on Nov 17 2023 8:47PM EST [id number] [facility] Comprehensive metabolic 2000 panelon 11-17-2023 Albumin [Mass/Vol] 2.6 g/dL Low 3.9-4.9 [facility] Comment on above: Order Comment: Cole lamas Type: BLOOD SPECIMENOrdering Facility: [facility] Address: [address] [place] [address] Performed By: #### 2 4323-8, 34591-3, 70647-7, 3040-3 ####[facility] [place] LABCLIA [id number] [place] [address] [place] ALP [Catalytic activity/Vol] 245 U/L High 34-123 [facility] Comment on above: Order Comment: Cole lamas Type: BLOOD SPECIMENOrdering Facility: [facility] Address: [address] [place] [address] Performed By: #### 2 4323-8, 86111-7, 21534-2, 3040-3 ####[facility] [place] LABCLIA [id number] [place] [address] [place] [facility] ALT With P-5'-P [Catalytic activity/Vol] 29 U/L Normal 7-38 [facility] Comment on above: Order Comment: Cole lamas Type: BLOOD SPECIMENOrdering Facility: [facility] Address: [address] [place] [address] Performed By: #### 2 4323-8, 92830-1, 35031-5, 3040-3 ####[facility] [place] LABCLIA [id number] [place] [address] [place] Anion gap [Moles/Vol] 9 mmol/L Normal 9-18 [facility] Comment on above: Order Comment: Speci men Type: BLOOD SPECIMENOrdering Facility: [facility] Address: [address] [place] [address] Performed By: #### 2 4323-8, 32218-7, 49161-0, 3040-3 ####[facility] [place] LABCLIA [id number] [facility] [place] [address] [place] AST With P-5'-P [Catalytic activity/Vol] 78 U/L High 13-35 [facility] Comment on above: Order Comment: Speci men Type: BLOOD SPECIMENOrdering Facility: [facility] Address: [address] [place] [address] Performed By: #### 2 4323-8, 11188-7, 71785-1, 3040-3 ####[facility] LABCLIA [id number] [place] [address] [place] Bilirubin [Mass/Vol] 3.0 mg/dL High 0.2-1.3 [facility] Comment on above: Order Comment: Speci men Type: BLOOD SPECIMENOrdering Facility: [facility] Address: [address] [place] [address] Performed By: #### 2 4323-8, 71964-0, 44211-7, 3040-3 ####[facility] [place] LABCLIA [id number] [facility] [place] [address] [place] Calcium [Mass/Vol] 8.6 mg/dL Normal 8.5-10.2 [facility] Comment on above: Order Comment: Speci men Type: BLOOD SPECIMENOrdering Facility: [facility] Address: [address] [place] [address] Performed By: #### 2 4323-8, 91305-4, 98352-2, 3040-3 ####[facility] [place] LABCLIA [id number] [facility] [place] [address] [place] Chloride [Moles/Vol] 101 mmol/L Normal 97-105 [facility] Comment on above: Order Comment: Speci men Type: BLOOD SPECIMENOrdering Facility: [facility] Address: [address] [place] [address] Performed By: #### 2 4323-8, 11483-2, 80823-5, 3040-3 ####[facility] [place] LABCLIA [id number] [place] [address] [place] [facility] CO2 [Moles/Vol] 24 mmol/L Normal 22-30 [facility] Comment on above: Order Comment: Speci men Type: BLOOD SPECIMENOrdering Facility: [facility] Address: [address] [place] [address] Performed By: #### 2 4323-8, 66986-8, 37552-2, 3040-3 ####[facility] LABCLIA [id number] [place] [address] [facility] Creatinine [Mass/Vol] 0.72 mg/dL Normal 0.58-0.96 [facility] Comment on above: Order Comment: Speci men Type: BLOOD SPECIMENOrdering Facility: [facility] Address: [address] [place] [address] Performed By: #### 2 4323-8, 59287-4, 19814-5, 3040-3 ####[facility] LABCLIA [id number] [place] [address] [facility] Creatinine and Glomerular filtration rate.predicted panel (S/P/Bld) 102 mL/min/1.73m??? Normal >=60 [facility] Comment on above: Order Comment: Speci men Type: BLOOD SPECIMENOrdering Facility: [facility] Address: [address] [place] [address] Result Comment: Connie mated Glomerular Filtration Rate [...] actual GFR. Performed By: #### 2 4323-8, 43366-9, 63321-2, 3040-3 ####[facility] LABCLIA [id number] [facility] [place] [address] [place] Glucose [Mass/Vol] 121 mg/dL High 74-99 [facility] Comment on above: Order Comment: Cole lamas Type: BLOOD SPECIMENOrdering Facility: [facility] Address: [address] [place] [id number] Result Comment: The [place] Diabetes Association (ADA) provides guidance for cutoff [...] Standards of Medical Care in Diabetes 2016, [place] [employer]. Diabetes Care. 2016.39(Suppl 1). Performed By: #### 2 4323-8, 68736-1, 21543-8, 3040-3 ####[facility] LABCLIA [id number] [facility] [address] [place] Potassium [Moles/Vol] 4.0 mmol/L Normal 3.7-5.1 [facility] Comment on above: Order Comment: Cole lamas Type: BLOOD SPECIMENOrdering Facility: [facility] Address: [address] [place] [address] Performed By: #### 2 4323-8, 10821-0, 28290-3, 3040-3 ####[facility] LABCLIA [id number] [facility] [place] [address] [place] Protein [Mass/Vol] 7.8 g/dL Normal 6.3-8.0 [facility] Comment on above: Order Comment: Speci men Type: BLOOD SPECIMENOrdering Facility: [facility] Address: [address] [place] [address] Performed By: #### 2 4323-8, 95493-2, 26074-2, 3040-3 ####[facility] LABCLIA [id number] [place] [address] [place] Sodium [Moles/Vol] 134 mmol/L Low 136-144 [facility] Comment on above: Order Comment: Speci men Type: BLOOD SPECIMENOrdering Facility: [facility] Address: [address] [place] [address] Performed By: #### 2 4323-8, 28578-6, 93590-1, 3040-3 ####[facility] LABCLIA [id number] [place] [address] [place] Urea nitrogen [Mass/Vol] 9 mg/dL Normal 7-21 [facility] Comment on above: Order Comment: Speci men Type: BLOOD SPECIMENOrdering Facility: [facility] Address: [address] [place] [address] Performed By: #### 2 4323-8, 11013-7, 10324-6, 3040-3 ####[facility] LABCLIA [id number] [place] [place] [address] [place] ECG COMPLETEon 11-17-2023 ECG COMPLETE Ventricular Rate : 8 2 BPM Atrial Rate : 82 BPM P-R Interval : 152 ms QRS Duration : 74 ms Q-T Interval : 400 ms QTC Calculation(Bazett) : 467 ms Calculated P [place] : 63 degrees Calculated R [place] : 2 degrees Calculated T [place] : 65 degrees NORMAL SINUS RHYTHM NONSPECIFIC ST-T WAVE CHANGES CANNOT RULE OUT ANTERIOR INFARCT , AGE UNDETERMINED ABNORMAL ECG NO PREVIOUS ECGS AVAILABLE Confirmed by MD TUYET, MIKE ([id number]) on 11/22/2023 8:00:16 AM NAME : CAROLINA HIGHTOWER PID : [id number] : 1975 Gender : Female Race : ORD : [id number] Procedure Date : Nov 17 2023 19:48:43 Edit Date : Nov 22 2023 08:00:20 Diagnosis: NORMAL SINUS RHYTHM NONSPECIFIC ST-T WAVE CHANGES CANNOT RULE OUT ANTERIOR INFARCT , AGE UNDETERMINED ABNORMAL ECG NO PREVIOUS ECGS AVAILABLE Confirmed by MD BENZ VINAYAK ([id number]) on 11/22/2023 8:00:16 AM Test Reason : Chest Pain Location : 191 : [facility] ED Overread By : MD BENZ VINAYAK Edited By : MD BENZ VINAYAK Referred By : , Acquired by : TRESA NGUYEN [facility] ED NOTEon 11-17-2023 ED NOTE HNO ID: [id number] Author: JIMI DOMINGUEZ RN Service: Emergency Medicine Author Type: Registered Nurse Type: ED Notes Filed: 11/17/2023 20:40 Note Text: Patient absolutely refuses to go to [place] or [place] or [facility]. MD notified [facility] ED NOTE HNO ID: [id number] Author: JIMI DOMINGUEZ RN Service: Emergency Medicine Author Type: Registered Nurse Type: ED Notes Filed: 11/17/2023 20:18 Note Text: Patient ambulatory to with steady gait. Urine obtained and sent [facility] ED NOTE HNO ID: [id number] Author: JIMI DOMINGUEZ RN Service: Emergency Medicine Author Type: Registered Nurse Type: ED Notes Filed: 11/17/2023 19:42 Note Text: Patient brought to ER by daughter - patient states seen at [facility] and per her PCP told to go to another ER. Per daughter patient is confused, abd swelling and SOB and dizziness with frequent falls. Monitor applied. EKG obtained. [facility] ED PROV NOTEon 11-17-2023 ED PROV NOTE HNO ID: [id number] Author: KOKO RUIZ MD Service: Emergency Medicine [...] distended than baseline. She typically follows at [facility] and has been seen there several [...] PAST SURGICAL HISTORY OF 2018 liver bx [facility] FAMILY HISTORY Problem Relation Age of Onset [...] (211 lb 12.8 oz) 1.575 m (5' 2") Physical Exam Vitals and nursing note reviewed. [...] Palpations: Abd (more content not included)... Normal [facility] Ethanol SerPl-mCncon 024 Ethanol [Mass/Vol] mg/dL Normal <11 [facility] Comment on above: Order Comment: Speci men Type: BLOOD SPECIMENOrdering Facility: [facility] Address: [address] [place] [address] Performed By: #### 3 298-7, 5643-2, 4024-6 ####[facility] LABCLIA [id number] [place] [address] [place] FLUABV+SARS-CoV-2+RSV Pnl Re sp PHYLLIS+probeon 11-17-2023 FLUABV+SARS-CoV-2+RSV Pnl Resp PHYLLIS+probe COVID 19 RESULT: Not detected The method used is RT-PCR or an equivalent NAAT method. Reference Range(the expected result in uninfected individuals): Not detected INFLUENZA A PCR: Not detected INFLUENZA B PCR: Not detected RSV PCR: Not detected Normal [facility] Comment on above: Performed By: #### 9 5941-1 ####[facility] LABCLIA [id number] [place] [id number] [place] HIGH SENSITIVITY TROPONIN T (INITIAL)on 11-17-2023 Troponin T.cardiac High sensitivity method [Mass/Vol] 16 ng/L High <12 [facility] Comment on above: Order Comment: Cole lmaas Type: BLOOD SPECIMENOrdering Facility: [facility] Address: [address] [place] [address] Result Comment: When assessing risk for acute [...] 30 day MACE. Performed By: #### L [id number] ####[facility] LABCLIA [id number] [place] [address] [facility] [place] HIGH SENSITIVITY TROPONIN T (SECOND)on 11-17-2023 Troponin T.cardiac High sensitivity method [Mass/Vol] 16 ng/L High <12 [facility] Comment on above: Order Comment: Cole lamas Type: BLOOD SPECIMENOrdering Facility: [facility] Address: [address] [place] [address] Result Comment: When assessing risk for acute [...] 30 day MACE. Performed By: #### L [id number] ####[facility] LABCLIA [id number] [address] HIGH SENSITIVITY TROPONIN T (THIRD) 3 HRS AFTER INITIALon 11-17-2023 Troponin T.cardiac High sensitivity method [Mass/Vol] 13 ng/L High <12 [facility] Comment on above: Order Comment: Cole lamas Type: BLOOD SPECIMENOrdering Facility: [facility] Address: [address] [place] [address] Result Comment: When assessing risk for acute [...] 30 day MACE. Performed By: #### L [id number] ####[facility] LABCLIA [id number] [place] [address] [place] Lipase SerPl-cCncon 11-17-19 24 Lipase [Catalytic activity/Vol] 23 U/L Normal 16-61 [facility] Comment on above: Order Comment: Speci men Type: BLOOD SPECIMENOrdering Facility: [facility] Address: [address] [place] [address] Performed By: #### 2 4323-8, 22260-2, 81102-6, 3040-3 ####[facility] LABCLIA [id number] [place] [id number] [place] Magnesium SerPl-mCncon 11-17 Magnesium [Mass/Vol] 1.6 mg/dL Low 1.7-2.3 [facility] Comment on above: Order Comment: Speci men Type: BLOOD SPECIMENOrdering Facility: [facility] Address: [address] [place] [address] Performed By: #### 2 4323-8, 46978-2, 99430-3, 3040-3 ####[facility] LABCLIA [id number] [place] [address] [facility] NT-proBNP SerPl-Guthrie Clinicon 11-17 Natriuretic peptide.B prohormone N-Terminal [Mass/Vol] 83 pg/mL Normal <125 [facility] Comment on above: Order Comment: Speci men Type: BLOOD SPECIMENOrdering Facility: [facility] Address: [address] [place] [address] Performed By: #### 2 4323-8, 45562-4, 13143-3, 3040-3 ####[facility] LABCLIA [id number] [place] [address] [place] [facility] Salicylates SerPl-mCncon Salicylates [Mass/Vol] mg/dL Low 3.0-30.0 [facility] Comment on above: Order Comment: Speci men Type: BLOOD SPECIMENOrdering Facility: [facility] Address: [address] [place] [address] Result Comment: The therapeutic range varies and has been reported to be 3.0 to 10.0 mg/dL for anti pyretic/analgesic conditions and 15.0 to 30.0 mg/dL for anti inflammatory/rheumatic fever conditions. Ranges published by the instrument fabric stretcher. Reference ranges and high/low indicator flags are provided as general guidelines only. The treating physician must determine appropriate target levels/dosing based on the specific clinical situation. Performed By: #### 3 298-7, 5643-2, 4024-6 ####[facility] LABCLIA [id number] [place] [address] [place] TOX SCREEN ROUT URon 024 Amphetamines Confirm (U) [Mass/Vol] Negative Normal Negative [facility] Comment on above: Order Comment: Speci men Type: URINE SPECIMENOrdering Facility: [facility] Address: [address] [place] [address] Result Comment: Cuto ff threshold at 1000 ng/mL. Performed By: #### U TOX2 ####[facility] LABCLIA [id number] [place] [address] [place] BARBITURATES, URINE Negative Normal Negative [facility] Comment on above: Order Comment: Speci men Type: URINE SPECIMENOrdering Facility: [facility] Address: [address] [place] [address] Result Comment: Cuto ff threshold at 200 ng/mL. Performed By: #### U TOX2 ####[facility] LABCLIA [id number] [place] [id number] [place] BENZODIAZEPINES, UR Negative Normal Negative [facility] Comment on above: Order Comment: Speci men Type: URINE SPECIMENOrdering Facility: [facility] Address: [address] [place] [address] Result Comment: Cuto ff threshold at 200 ng/mL. Performed By: #### U TOX2 ####[facility] LABCLIA [id number] [place] [id number] [place] Cannabinoids Screen Ql (U) Positive Abnormal Negative [facility] Comment on above: Order Comment: Speci men Type: URINE SPECIMENOrdering Facility: [facility] Address: [address] [place] [address] Result Comment: Cuto ff threshold at 50 ng/mL. Performed By: #### U TOX2 ####[facility] LABCLIA [id number] [place] [address] [place] Cocaine Ql (U) Negative Normal Negative [facility] Comment on above: Order Comment: Speci men Type: URINE SPECIMENOrdering Facility: [facility] Address: [address] [place] [address] Result Comment: Cuto ff threshold at 300 ng/mL. Performed By: #### U TOX2 ####[facility] LABCLIA [id number] [place] [address] [place] Ethanol (U) [Mass/Vol] <11 Normal <11 [facility] Comment on above: Order Comment: Speci men Type: URINE SPECIMENOrdering Facility: [facility] Address: [address] [place] [address] Performed By: #### U TOX2 ####[facility] LABCLIA [id number] [place] [address] [facility] [place] Opiates Screen Ql (U) Negative Normal Negative [facility] Comment on above: Order Comment: Speci men Type: URINE SPECIMENOrdering Facility: [facility] Address: [address] [place] [address] Result Comment: Cuto ff threshold at 300 ng/mL. Performed By: #### U TOX2 ####[facility] LABCLIA [id number] [place] [address] [facility] oxyCODONE cutoff Screen (U) [Mass/Vol] Negative Normal Negative [facility] Comment on above: Order Comment: Speci men Type: URINE SPECIMENOrdering Facility: [facility] Address: [address] [place] [address] Result Comment: Cuto ff threshold at 100 ng/mL. Performed By: #### U TOX2 ####[facility] LABCLIA [id number] [place] [address] [facility] Phencyclidine Ql (U) Negative Normal Negative [facility] Comment on above: Order Comment: Speci men Type: URINE SPECIMENOrdering Facility: [facility] Address: [address] [place] [address] Result Comment: Cuto ff threshold at 25 ng/mL. Performed By: #### U TOX2 ####[facility] LABCLIA [id number] [place] [address] [facility] Urinalysis complete panel (U )on 11-17-2023 Bacteria LM.HPF (Urine sed) [#/Area] Few Abnormal None Seen [facility] Comment on above: Order Comment: Speci men Type: URINE SPECIMENOrdering Facility: [facility] Address: [address] [place] [address] Performed By: #### 2 4356-8 ####[facility] LABCLIA [id number] [place] [address] [place] Bilirubin Ql (U) 2+ Abnormal Negative [facility] Comment on above: Order Comment: Speci men Type: URINE SPECIMENOrdering Facility: [facility] Address: [address] [place] [address] Result Comment: Sugg est correlation with clinical findings and serum bilirubin if clinically indicated. Performed By: #### 2 4356-8 ####[facility] LABCLIA [id number] [place] [address] [place] Clarity (Unsp spec) Slightly Cloudy Abnormal Clear [facility] Comment on above: Order Comment: Speci men Type: URINE SPECIMENOrdering Facility: [facility] Address: [address] [place] [address] Performed By: #### 2 4356-8 ####[facility] LABCLIA [id number] [place] [address] [place] Color (U) Mike Abnormal Yellow [facility] Comment on above: Order Comment: Speci men Type: URINE SPECIMENOrdering Facility: [facility] Address: [address] [place] [address] Performed By: #### 2 4356-8 ####[facility] LABCLIA [id number] [place] [address] [facility] [place] Epithelial cells LM.HPF (Urine sed) [#/Area] Few Normal [facility] Comment on above: Order Comment: Speci men Type: URINE SPECIMENOrdering Facility: [facility] Address: [address] [place] [address] Performed By: #### 2 4356-8 ####[facility] LABCLIA [id number] [place] [address] [place] Glucose Test strip (U) [Mass/Vol] Negative Normal Negative [facility] Comment on above: Order Comment: Speci men Type: URINE SPECIMENOrdering Facility: [facility] Address: [address] [place] [address] Performed By: #### 2 4356-8 ####[facility] LABCLIA [id number] [facility] [place] [address] [place] Hemoglobin Ql (U) 1+ Abnormal Negative [facility] Comment on above: Order Comment: Speci men Type: URINE SPECIMENOrdering Facility: [facility] Address: [address] [place] [address] Performed By: #### 2 4356-8 ####[facility] LABCLIA [id number] [place] [address] [place] [facility] Ketones Ql (U) Negative Normal Negative [facility] Comment on above: Order Comment: Speci men Type: URINE SPECIMENOrdering Facility: [facility] Address: [address] [place] [address] Performed By: #### 2 4356-8 ####[facility] LABCLIA [id number] [place] [address] [place] Leukocyte esterase Test strip Ql (U) Negative Normal Negative [facility] Comment on above: Order Comment: Speci men Type: URINE SPECIMENOrdering Facility: [facility] Address: [address] [place] [address] Performed By: #### 2 4356-8 ####[facility] LABCLIA [id number] [facility] [place] [address] [place] Nitrite Ql (U) Negative Normal Negative [facility] Comment on above: Order Comment: Speci men Type: URINE SPECIMENOrdering Facility: [facility] Address: [address] [place] [address] Performed By: #### 2 4356-8 ####[facility] LABCLIA [id number] [place] [address] [place] pH (U) 6.0 [pH] Normal 5.0-8.0 [facility] Comment on above: Order Comment: Speci men Type: URINE SPECIMENOrdering Facility: [facility] Address: [address] [place] [address] Performed By: #### 2 4356-8 ####[facility] LABCLIA [id number] [place] [address] [place] [facility] Protein (U) [Mass/Vol] 1+ Abnormal Negative [facility] Comment on above: Order Comment: Speci men Type: URINE SPECIMENOrdering Facility: [facility] Address: [address] [place] [address] Performed By: #### 2 4356-8 ####[facility] LABCLIA [id number] [place] [address] [place] RBC LM.HPF (Urine sed) [#/Area] 6-10 /HPF Abnormal 0-3 /HPF [facility] Comment on above: Order Comment: Speci men Type: URINE SPECIMENOrdering Facility: [facility] Address: [address] [place] [address] Performed By: #### 2 4356-8 ####[facility] LABCLIA [id number] [place] [address] [facility] Specific gravity (U) [Rel density] >=1.030 High 1.005-1.030 [facility] Comment on above: Order Comment: Speci men Type: URINE SPECIMENOrdering Facility: [facility] Address: [address] [place] [address] Performed By: #### 2 4356-8 ####[facility] LABCLIA [id number] [place] [address] [facility] Urobilinogen Ql (U) 4.0 EU/dL Abnormal 0.2-1.0 EU/dL [facility] Comment on above: Order Comment: Speci men Type: URINE SPECIMENOrdering Facility: [facility] Address: [address] [place] [address] Performed By: #### 2 4356-8 ####[facility] LABCLIA [id number] [place] [address] [facility] WBC LM.HPF (Urine sed) [#/Area] 0-5 /HPF Normal 0-5 /HPF [facility] Comment on above: Order Comment: Speci men Type: URINE SPECIMENOrdering Facility: [facility] Address: [address] [place] [address] [place] [address] Performed By: #### 2 4356-8 ####[facility] LABCLIA [id number] [place] [address] [facility] XR CHEST 1V FRONTALon 2023 XR CHEST [...] viral pneumonitis in the appropriate clinical setting. Bilingual Patient Support Caseworker: POOJA Transcribe Date/Time: Nov 17 2023 8:50P Dictated by : ARMANDO RAY DO This examination was interpreted and the report reviewed and electronically signed by: ARMANDO RAY DO on Nov 17 2023 8:51PM EST [id number] Normal [facility] Absolute lymphocyte countOrd ered By: Erik Cordova on 11-10-2023 Lymphocytes Auto (Unsp spec) [#/Vol] 1.49 10*3/uL 0.83-4.51 [facility] Automated lymphocyte count a s percentage of total leukocytesOrdered By: Erik Cordova on 11-10-2023 Lymphocytes/100 WBC Auto (Unsp spec) 34.5 % 19-41 [facility] Basophil percentageOrdered B y: Erik Cordova on 11-10-2023 Basophil percentage 10.3 g/dL 12.0-15.0 [facility] Basophil percentage 92 mg/dL 74-106 [facility] Basophil percentage 6.5 g/dL 6.4-8.2 [facility] Basophil percentage 1.60 mg/dL 0.20-1.00 [facility] Basophil percentage 142 mmol/L 136-145 [facility] Basophil percentage 4.3 mmol/L 3.5-5.1 [facility] Basophil percentage 113 mmol/L 98-107 [facility] Basophil percentage < 10.0 umol/L 11-32 [facility] Basophils (Bld) [#/Vol] 4.3 10*3/uL 4.4-11.0 [facility] Basophils (Bld) [#/Vol] 2.5 10*3/uL 2.0-7.7 [facility] Basophils/100 WBC (Bld) 57.4 % 47-70 [facility] Basophils/100 WBC (Bld) 6.7 % 0-10 [facility] Basophils/100 WBC (Bld) 0.7 % 0-5 [facility] Basophils/100 WBC (Bld) 0.5 % 0-1 [facility] Bilirubin [Mass/Vol] 1.60 mg/dL 0.20-1.00 [facility] Comment on above: For patients on eltr ombopag therapy, use of Dimension [place] TBIL is not recommended. Chloride [Moles/Vol] 113 mmol/L 98-107 [facility] Eosinophils/100 WBC (Bld) 0.7 % 0-5 [facility] Glucose [Mass/Vol] 92 mg/dL 74-106 [facility] Hemoglobin (Bld) [Mass/Vol] 10.3 g/dL 12.0-15.0 [facility] Monocytes/100 WBC (Bld) 6.7 % 0-10 [facility] Neutrophils (Bld) [#/Vol] 2.5 10*3/uL 2.0-7.7 [facility] Neutrophils/100 WBC (Bld) 57.4 % 47-70 [facility] Potassium [Moles/Vol] 4.3 mmol/L 3.5-5.1 [facility] Protein [Mass/Vol] 6.5 g/dL 6.4-8.2 [facility] Sodium [Moles/Vol] 142 mmol/L 136-145 [facility] WBC (Bld) [#/Vol] 4.3 10*3/uL 4.4-11.0 [facility] Blood platelet adequacy dete ction by light microscopyOrdered By: Erik Cordova on 11-10-2023 Platelets LM Ql (Bld) MOD DEC ADEQ [facility] Determination of erythrocyte mean corpuscular volume (MCV)Ordered By: Erik Cordova on 11-10-2023 MCV (RBC) [Entitic vol] 77.2 fL 81-99 [facility] Direct bilirubinOrdered By: Erik Cordova on 11-10-2023 Bilirubin.direct [Mass/Vol] 0.89 mg/dL 0.00-0.30 [facility] Erythrocyte distribution wid th ratioOrdered By: Erik Cordova on 11-10-2023 Erythrocyte distribution width (RBC) [Ratio] 21.2 % 11.6-14.6 [facility] Erythrocyte distribution wid th standard deviationOrdered By: Erik Cordova on 11-10-2023 Erythrocyte distribution width (RBC) [Entitic vol] 59.1 fL 35.1-43.9 [facility] Hematocrit Auto (Bld) [Volum e fraction]Ordered By: Erik Cordova on 11-10-2023 Hematocrit (Bld) [Volume fraction] 33.9 % 37-47 [facility] Immature granulocytes/100 WB C Auto (Bld)Ordered By: Erik Cordova on 11-10-2023 Immature granulocytes/100 WBC (Bld) 0.200 % 0.0-0.9 [facility] Comment on above: IG% - Immature Granu locytes (promyelocytes, myelocytes and metamyelocytes) > 1% indicates that a LEFT SHIFT is Present. Laboratory - Chemistry and C hemistry - challengeOrdered By: Erik Cordova on 11-10-2023 ALP [Catalytic activity/Vol] 157 U/L 45-117 [facility] ALT [Catalytic activity/Vol] 46 U/L 13-56 [facility] CO2 [Moles/Vol] 24.0 mmol/L 21.0-32.0 [facility] Globulin (S) [Mass/Vol] 4.3 g/dL 2.2-4.2 [facility] Lipase [Catalytic activity/Vol] 47 U/L 13-75 [facility] Comment on above: Please note:LIPASE r evised reference range effective 23. New Lipase methodology. Expected to produce lower values than the previous assay method. NEW Reference Range: 13 - 75 U/L Urea nitrogen/Creatinine [Mass ratio] 11.5 mg/mg 10-20 [facility] Laboratory - CoagulationOrde red By: Erik Cordova on 11-10-2023 INR Coag (Bld) [Relative time] 1.6 {INR} [facility] PT Coag (PPP) [Time] 19.0 s 11.7-14.9 [facility] - Hematology and Cell countsOrdered By: Erik Cordova on 11-10-2023 Anisocytosis Ql (Bld) 1+ [facility] MCH (RBC) [Entitic mass] 23.5 pg 27.0-32.0 [facility] MCHC (RBC) [Mass/Vol] 30.4 g/dL 32-36 [facility] Nucleated RBC/100 WBC (Bld) [Ratio] 0 % 0-5 [facility] Platelets (Bld) [#/Vol] 62 10*3/uL 150-450 [facility] No Panel InformationOrdered By: Erik Cordova on 11-10-2023 Estimated GFR (MDRD) Amer 100 mL/min >60 [facility] Comment on above: GFR Calc Estimated GFR (MDRD) Non-Af Amer 83 mL/min >60 [facility] Comment on above: Non- GFR Calc Mean Platelet Volume TNP [facility] Comment on above: Test not performed 23.5 pg 27.0-32.0 [facility] 30.4 g/dL 32-36 [facility] 62 K/mm3 150-450 [facility] TNP [facility] 0 % 0-5 [facility] 1+ [facility] 19.0 SECONDS 11.7-14.9 [facility] 1.6 [facility] 83 mL/min >60 [facility] 100 mL/min >60 [facility] 11.5 RATIO 10-20 [facility] 4.3 g/dL 2.2-4.2 [facility] 47 U/L 13-75 [facility] 157 U/L 45-117 [facility] 46 U/L 13-56 [facility] 24.0 mmol/L 21.0-32.0 [facility] Ovalocyte detectionOrdered B y: Erik Cordova on 11-10-2023 Ovalocytes LM Ql (Bld) RARE [facility] RBC Auto (Bld) [#/Vol]Ordere d By: Erik Cordova on 11-10-2023 RBC (Bld) [#/Vol] 4.39 10*6/uL 4.2-5.4 [facility] RBC morphologyOrdered By: Jose Cordova on 11-10-2023 RBC morphology finding Nom (Bld) N CHROM NORMAL NORM C&C [facility] Serum or plasma calcium latrice urement (mass/volume)Ordered By: Erik Cordova on 11-10-2023 Calcium [Mass/Vol] 8.5 mg/dL 8.5-10.1 [facility] Serum or plasma creatinine m easurement (mass/volume)Ordered By: Erik Cordova on 11-10-2023 Creatinine [Mass/Vol] 0.78 mg/dL 0.55-1.02 [facility] Comment on above: The validity of the calculated GFR & GFRAA in patients over 70 years has not been determined. Clinical correlation is essential. Serum or plasma urea nitroge n measurement (mass/volume)Ordered By: Erik Cordova on 11-10-2023 Urea nitrogen [Mass/Vol] 9 mg/dL 7-18 [facility] Thin prep Papanicolaou smear with manual screeningOrdered By: Erik Cordova on 11-10-2023 Thin prep Papanicolaou smear with manual screening 1+ [facility] Thin prep Papanicolaou smear with manual screening 2.2 g/dL 3.2-5.0 [facility] Thin prep Papanicolaou smear with manual screening 109 U/L 15-37 [facility] [facility] Thin prep Papanicolaou smear with manual screening 5 5-15 [facility] Absolute lymphocyte countOrd ered By: Yimi Hutchinson on 11-07-2023 Lymphocytes Auto (Unsp spec) [#/Vol] 0.74 10*3/uL 0.83-4.51 [facility] Activated partial thrombopla stin time (aPTT) in platelet poor plasma by coagulation aOrdered By: Yimi Hutchinson on 11-07-2023 aPTT Coag (PPP) [Time] 43.8 s 24.1-36.2 [facility] Anaerobic cultureOrdered By: Yimi Hutchinson on 11-07-2023 Bacteria identified Anaer cx Nom (Unsp spec) No growth in 5 days. [facility] Automated lymphocyte count a s percentage of total leukocytesOrdered By: Yimi Hutchinson on 11-07-2023 Lymphocytes/100 WBC Auto (Unsp spec) 23.6 % 19-41 [facility] Basophil percentageOrdered B y: Yimi Hutchinson on 11-07-2023 Basophil percentage 25-50 SEEN /hpf 0-5 [facility] Basophil percentage 9.5 g/dL 12.0-15.0 [facility] Basophil percentage 92 mg/dL 74-106 [facility] Basophil percentage 7.0 g/dL 6.4-8.2 [facility] Basophil percentage 2.10 mg/dL 0.20-1.00 [facility] Basophil percentage 142 mmol/L 136-145 [facility] Basophil percentage 3.6 mmol/L 3.5-5.1 [facility] Basophil percentage 113 mmol/L 98-107 [facility] Basophils (Bld) [#/Vol] 3.1 10*3/uL 4.4-11.0 [facility] Basophils (Bld) [#/Vol] 2.0 10*3/uL 2.0-7.7 [facility] Basophils/100 WBC (Bld) 62.0 % 47-70 [facility] Basophils/100 WBC (Bld) 9.6 % 0-10 [facility] Basophils/100 WBC (Bld) 3.5 % 0-5 [facility] Basophils/100 WBC (Bld) 1.0 % 0-1 [facility] Bilirubin [Mass/Vol] 2.10 mg/dL 0.20-1.00 [place] Comment on above: For patients on eltr ombopag therapy, use of Dimension [place] TBIL is not recommended. Chloride [Moles/Vol] 113 mmol/L 98-107 [place] Eosinophils/100 WBC (Bld) 3.5 % 0-5 [facility] Glucose [Mass/Vol] 92 mg/dL 74-106 [facility] Hemoglobin (Bld) [Mass/Vol] 9.5 g/dL 12.0-15.0 [facility] Monocytes/100 WBC (Bld) 9.6 % 0-10 [facility] Neutrophils (Bld) [#/Vol] 2.0 10*3/uL 2.0-7.7 [facility] Neutrophils/100 WBC (Bld) 62.0 % 47-70 [facility] Potassium [Moles/Vol] 3.6 mmol/L 3.5-5.1 [facility] Protein [Mass/Vol] 7.0 g/dL 6.4-8.2 [facility] Sodium [Moles/Vol] 142 mmol/L 136-145 [facility] WBC (Bld) [#/Vol] 3.1 10*3/uL 4.4-11.0 [facility] Bilirubin Test strip Ql (U)O rdered By: Yimi Hutchinson on 11-07-2023 Bilirubin Ql (U) Negative Negative [facility] Blood platelet adequacy dete ction by light microscopyOrdered By: Yimi Hutchinson on 11-07-2023 Platelets LM Ql (Bld) MOD DEC ADEQ [facility] Body fluid appearanceOrdered By: Yimi Hutchinson on 11-07-2023 Appearance (Body fld) SL CLDY [facility] Body fluid color determinati onOrdered By: Yimi Hutchinson on 11-07-2023 Color (Body fld) LT YEL [facility] Body fluid leukocytes count (number/volume)Ordered By: Yimi Hutchinson on 11-07-2023 WBC (Body fld) [#/Vol] 0.133 10*3/uL [facility] Body fluid lymphocytes/100 l eukocytesOrdered By: Yimi Hutchinson on 11-07-2023 Lymphocytes/100 WBC (Body fld) 21 % [facility] Body fluid mononuclear cell percentageOrdered By: Yimi Hutchinson on 11-07-2023 Mononuclear cells/100 WBC (Body fld) 92.5 % [facility] Body fluid other cell count as percentage of leukocytesOrdered By: Yimi Hutchinson on 11-07-2023 Other cells/100 WBC (Body fld) 74 % [facility] Body fluid polymorphonuclear leukocyte countOrdered By: Yimi Hutchinson on 11-07-2023 Polymorphonuclear cells (Body fld) [#/Vol] 0.010 10^3/uL [facility] Body fluid segmented neutrop hils count (number/volume)Ordered By: Yimi Hutchinson on 11-07-2023 Segmented neutrophils (Body fld) [#/Vol] 3 % [facility] Body fluid total cell countO rdered By: Yimi Hutchinson on 11-07-2023 Cells Counted Total (Body fld) [#] 0.200 10^3/ul 0.000-0.000 [facility] Comment on above: This is the Total Nu mber of Nucleated Cell Types in the Body Fluid. Culture, urineOrdered By: rehan Hutchinson on 11-07-2023 Bacteria identified Cx Nom (U) Culture exhibits no growth. [facility] Bacteria identified Cx Nom (U) Culture exhibits no growth. [facility] Determination of erythrocyte mean corpuscular volume (MCV)Ordered By: Yimi Hutchinson on 11-07-2023 MCV (RBC) [Entitic vol] 76.3 fL 81-99 [facility] Direct bilirubinOrdered By: Yimi Hutchinson on 11-07-2023 Bilirubin.direct [Mass/Vol] 1.03 mg/dL 0.00-0.30 [facility] Erythrocyte distribution wid th ratioOrdered By: Yimi Hutchinson on 11-07-2023 Erythrocyte distribution width (RBC) [Ratio] 20.7 % 11.6-14.6 [facility] Erythrocyte distribution wid th standard deviationOrdered By: Yimi Hutchinson on 11-07-2023 Erythrocyte distribution width (RBC) [Entitic vol] 57.7 fL 35.1-43.9 [facility] Gram stain for investigation of transfusion reactionOrdered By: Yimi Hutchinson on 11-07-2023 Microscopic observation Gram stain Nom (Unsp spec) [facility] Hematocrit Auto (Bld) [Volum e fraction]Ordered By: Yimi Hutchinson on 11-07-2023 Hematocrit (Bld) [Volume fraction] 31.6 % 37-47 [facility] Immature granulocytes/100 WB C Auto (Bld)Ordered By: Yimi Hutchinson on 11-07-2023 Immature granulocytes/100 WBC (Bld) 0.300 % 0.0-0.9 [facility] Comment on above: IG% - Immature Granu locytes (promyelocytes, myelocytes and metamyelocytes) > 1% indicates that a LEFT SHIFT is Present. Ketones Test strip Ql (U)Ord ered By: Yimi Hutchinson on 11-07-2023 Ketones Ql (U) 5 mg/dl Negative [facility] Laboratory - Chemistry and C hemistry - challengeOrdered By: Yimi Hutchinson on 11-07-2023 HCG ( test) Ql (U) Negative [facility] Comment on above: Very dilute urine sp ecimens, as indicated by a low specificgravity, may not contain inside account representative levels of hCG. If is still suspected, a first morning urinespecimen should be collected 48 hours later and tested. ALP [Catalytic activity/Vol] 142 U/L 45-117 [facility] ALT [Catalytic activity/Vol] 51 U/L 13-56 [facility] CO2 [Moles/Vol] 25.0 mmol/L 21.0-32.0 [facility] Globulin (S) [Mass/Vol] 4.5 g/dL 2.2-4.2 [facility] Lipase [Catalytic activity/Vol] 38 U/L 13-75 [facility] Comment on above: Please note:LIPASE r evised reference range effective 23. New Lipase methodology. Expected to produce lower values than the previous assay method. NEW Reference Range: 13 - 75 U/L Urea nitrogen/Creatinine [Mass ratio] 14.4 mg/mg 10-20 [facility] Laboratory - CoagulationOrde red By: Yimi Hutchinson on 11-07-2023 INR Coag (Bld) [Relative time] 1.8 {INR} [facility] PT Coag (PPP) [Time] 21.3 s 11.7-14.9 [place] [facility] - Hematology and Cell countsOrdered By: Yimi Hutchinson on 11-07-2023 Anisocytosis Ql (Bld) 2+ [facility] MCH (RBC) [Entitic mass] 22.9 pg 27.0-32.0 [facility] MCHC (RBC) [Mass/Vol] 30.1 g/dL 32-36 [facility] Nucleated RBC/100 WBC (Bld) [Ratio] 0 % 0-5 [facility] Platelets (Bld) [#/Vol] 53 10*3/uL 150-450 [facility] Mucus LM Ql (Urine sed)Order ed By: Yimi Hutchinson on 11-07-2023 Mucus Ql (Urine sed) 1+ /hpf [place] Nitrite Test strip Ql (U)Ord ered By: Yimi Hutchinson on 11-07-2023 Nitrite Ql (U) Negative Negative [facility] No Panel InformationOrdered By: Yimi Hutchinson on 11-07-2023 Body Fluid Comment 2 SEE COMMENT [facility] Body Fluid Mononuclear WBCs 0.123 10^3/uL [facility] Body Fluid Polynuclear WBCs (%) 7.5 % [facility] Body Fluid RBC 116 /mm3 [facility] 116 /mm3 [facility] 7.5 % [facility] 0.123 10^3/uL [facility] SEE COMMENT [facility] Culture exhibits no growth. [facility] Urine RBC 0-5 SEEN /hpf 0-5 [facility] 0-5 SEEN /hpf 0-5 [facility] Negative [facility] Body Fluid Culture Culture exhibits no growth. [facility] Estimated Creatinine Clearance Calc 85.64 ml/min [facility] Estimated GFR (MDRD) Amer 93 mL/min >60 [facility] Comment on above: GFR Calc Estimated GFR (MDRD) Non-Af Amer 77 mL/min >60 [facility] Comment on above: Non- GFR Calc 22.9 pg 27.0-32.0 [facility] 30.1 g/dL 32-36 [facility] 53 K/mm3 150-450 [facility] 0 % 0-5 [facility] 2+ [facility] 21.3 SECONDS 11.7-14.9 [facility] 1.8 [facility] 77 mL/min >60 [facility] 93 mL/min >60 [facility] 85.64 ml/min [facility] 14.4 RATIO 10-20 [facility] 4.5 g/dL 2.2-4.2 [facility] 38 U/L 13-75 [facility] 142 U/L 45-117 [facility] 51 U/L 13-56 [facility] 25.0 mmol/L 21.0-32.0 [facility] Pathologist interpretation o f Body fluid testsOrdered By: Yimi Hutchinson on 11-07-2023 Pathologist interpretation (Body fld) [Interp] Reviewed [facility] Comment on above: Previous reported re sult: May follow Edited by: SARAH on 11/08/23:1417Negative for malignant cells.Wilder Godfrey M.D. 11/08/23 AMENDED REPORT 11/08/23 1417 PATH COMM/BF previously reported as: May follow Pathologist interpretation (Body fld) [Interp] May follow [facility] Protein Test strip Ql (U)Ord ered By: Yimi Hutchinson on 11-07-2023 Protein Ql (U) 30 mg/dl Negative [facility] RBC Auto (Bld) [#/Vol]Ordere d By: Yimi Hutchinson on 11-07-2023 RBC (Bld) [#/Vol] 4.14 10*6/uL 4.2-5.4 [facility] Serum or plasma calcium latrice urement (mass/volume)Ordered By: Yimi Hutchinson on 11-07-2023 Calcium [Mass/Vol] 8.8 mg/dL 8.5-10.1 [facility] Serum or plasma creatinine m easurement (mass/volume)Ordered By: Yimi Hutchinson on 11-07-2023 Creatinine [Mass/Vol] 0.83 mg/dL 0.55-1.02 [facility] Comment on above: The validity of the calculated GFR & GFRAA in patients over 70 years has not been determined. Clinical correlation is essential. Serum or plasma urea nitroge n measurement (mass/volume)Ordered By: Yimi Hutchinson on 11-07-2023 Urea nitrogen [Mass/Vol] 12 mg/dL 7-18 [facility] Specimen source identificati on of body fluidOrdered By: Yimi Hutchinson on 11-07-2023 Specimen source Nom (Body fld) OTHER [facility] Comment on above: PARACENTESIS. Squamous epithelial cells de tection in urine sediment by light microscopyOrdered By: Yimi Hutchinson on 11-07-2023 Epithelial cells.squamous LM Ql (Urine sed) 5-10 SEEN /hpf 5-10 [facility] Thin prep Papanicolaou smear with manual screeningOrdered By: Yimi Hutchinson on 11-07-2023 Thin prep Papanicolaou smear with manual screening 2 % [facility] Thin prep Papanicolaou smear with manual screening 2.5 g/dL 3.2-5.0 [facility] Thin prep Papanicolaou smear with manual screening 92 U/L 15-37 [facility] Thin prep Papanicolaou smear with manual screening 4 5-15 [facility] Urine blood detectionOrdered By: Yimi Hutchinson on 11-07-2023 RBC Ql (U) 50 /ul Negative [facility] Urine clarityOrdered By: Lashay Hutchinson on 11-07-2023 Clarity (U) Sl. Cloudy Clear [facility] Urine color determinationOrd ered By: Yimi Hutchinson on 11-07-2023 Color (U) Yellow Yellow [facility] Urine glucose detectionOrder ed By: Yimi Hutchinson on 11-07-2023 Glucose Ql (U) Normal mg/dl Normal [facility] Urine leukocyte esterase det ection by dipstickOrdered By: Yimi Hutchinson on 11-07-2023 Leukocyte esterase Test strip Ql (U) 500 /ul Negative [facility] Urine pHOrdered By: Yimi mcduffie on 11-07-2023 pH (U) 6.0 [pH] 5.0 - 8.0 [facility] Urine sediment bacteria coun t by microscopy (number/high power field)Ordered By: Yimi Hutchinson on 11-07-2023 Bacteria LM.HPF (Urine sed) [#/Area] 1 /[HPF] None Seen [facility] Urine specific gravity measu rementOrdered By: Yimi Hutchinson on 11-07-2023 Specific gravity (U) [Rel density] 1.020 1.002-1.030 [facility] Urine urobilinogen measureme ntOrdered By: Yimi Hutchinson on 11-07-2023 Urobilinogen Ql (U) 4 mg/dl Normal [facility] Absolute lymphocyte countOrd ered By: Jake Harding on 11-05-2023 Lymphocytes Auto (Unsp spec) [#/Vol] 1.48 10*3/uL 0.83-4.51 [facility] Automated lymphocyte count a s percentage of total leukocytesOrdered By: Jake Harding on 11-05-2023 Lymphocytes/100 WBC Auto (Unsp spec) 29.7 % 19-41 [facility] Basophil percentageOrdered B y: Jake Harding on 11-05-2023 Basophil percentage 5-10 SEEN /hpf 0-5 [facility] Basophil percentage 9.4 g/dL 12.0-15.0 [facility] Basophil percentage 113 mg/dL 74-106 [facility] Basophil percentage 6.8 g/dL 6.4-8.2 [facility] Basophil percentage 1.80 mg/dL 0.20-1.00 [facility] Basophil percentage 141 mmol/L 136-145 [facility] Basophil percentage 3.8 mmol/L 3.5-5.1 [facility] Basophil percentage 114 mmol/L 98-107 [facility] Basophils (Bld) [#/Vol] 5.0 10*3/uL 4.4-11.0 [facility] Basophils (Bld) [#/Vol] 2.9 10*3/uL 2.0-7.7 [facility] Basophils/100 WBC (Bld) 0.6 % 0-1 [facility] Basophils/100 WBC (Bld) 57.9 % 47-70 [facility] Basophils/100 WBC (Bld) 8.4 % 0-10 [facility] Basophils/100 WBC (Bld) 3.2 % 0-5 [facility] Bilirubin [Mass/Vol] 1.80 mg/dL 0.20-1.00 [place] Comment on above: For patients on eltr ombopag therapy, use of Dimension [place] TBIL is not recommended. Chloride [Moles/Vol] 114 mmol/L 98-107 [place] Eosinophils/100 WBC (Bld) 3.2 % 0-5 [facility] Glucose [Mass/Vol] 113 mg/dL 74-106 [facility] Comment on above: Fasting Glucose resu lt from 100 to 125 mg/dL suggests IMPAIRED HOMEOSTASIS per A.D.A. criteria. Hemoglobin (Bld) [Mass/Vol] 9.4 g/dL 12.0-15.0 [facility] Monocytes/100 WBC (Bld) 8.4 % 0-10 [facility] Neutrophils (Bld) [#/Vol] 2.9 10*3/uL 2.0-7.7 [facility] Neutrophils/100 WBC (Bld) 57.9 % 47-70 [facility] Potassium [Moles/Vol] 3.8 mmol/L 3.5-5.1 [facility] Protein [Mass/Vol] 6.8 g/dL 6.4-8.2 [facility] Sodium [Moles/Vol] 141 mmol/L 136-145 [facility] WBC (Bld) [#/Vol] 5.0 10*3/uL 4.4-11.0 [facility] Bilirubin Test strip Ql (U)O rdered By: Jake Harding on 11-05-2023 Bilirubin Ql (U) 1 mg/dL Negative [facility] Comment on above: COLOR OF URINE MAY A FFECT DIPSTICK RESULTS. Blood manual differential co mment interpretation (narrative result)Ordered By: Jake Harding on 11-05-2023 Manual differential comment Eliezer (Bld) [Interp] SCANNED [facility] Blood platelet adequacy dete ction by light microscopyOrdered By: Jake Harding on 11-05-2023 Platelets LM Ql (Bld) MKD DEC ADEQ [facility] Calcium oxalate crystals det ection in urine sediment by light microscopyOrdered By: Jake Harding on 11-05-2023 Calcium oxalate crystals LM Ql (Urine sed) 2+ /hpf [facility] Culture, urineOrdered By: Jasbir Luu on 11-05-2023 Bacteria identified Cx Nom (U) Culture exhibits no growth. [facility] Bacteria identified Cx Nom (U) Culture exhibits no growth. [facility] Determination of erythrocyte mean corpuscular volume (MCV)Ordered By: Jake Harding on 11-05-2023 MCV (RBC) [Entitic vol] 77.1 fL 81-99 [facility] Erythrocyte distribution wid th ratioOrdered By: Jake Harding on 11-05-2023 Erythrocyte distribution width (RBC) [Ratio] 20.6 % 11.6-14.6 [facility] Erythrocyte distribution wid th standard deviationOrdered By: Jake Harding on 11-05-2023 Erythrocyte distribution width (RBC) [Entitic vol] 58.3 fL 35.1-43.9 [facility] Hematocrit Auto (Bld) [Volum e fraction]Ordered By: Jake Harding on 11-05-2023 Hematocrit (Bld) [Volume fraction] 31.0 % 37-47 [facility] Immature granulocytes/100 WB C Auto (Bld)Ordered By: Jake Harding on 11-05-2023 Immature granulocytes/100 WBC (Bld) 0.200 % 0.0-0.9 [facility] Comment on above: IG% - Immature Granu locytes (promyelocytes, myelocytes and metamyelocytes) > 1% indicates that a LEFT SHIFT is Present. Ketones Test strip Ql (U)Ord ered By: Jake Harding on 11-05-2023 Ketones Ql (U) 5 mg/dl Negative [facility] Laboratory - Chemistry and C hemistry - challengeOrdered By: Jake Harding on 11-05-2023 Albumin/Globulin [Mass ratio] 0.6 {ratio} 0.9-2.4 [facility] ALP [Catalytic activity/Vol] 139 U/L 45-117 [facility] ALT [Catalytic activity/Vol] 52 U/L 13-56 [facility] CO2 [Moles/Vol] 25.0 mmol/L 21.0-32.0 [facility] Globulin (S) [Mass/Vol] 4.3 g/dL 2.2-4.2 [facility] Lipase [Catalytic activity/Vol] 45 U/L 13-75 [facility] Comment on above: Please note:LIPASE r evised reference range effective 23. New Lipase methodology. Expected to produce lower values than the previous assay method. NEW Reference Range: 13 - 75 U/L Urea nitrogen/Creatinine [Mass ratio] 13.7 mg/mg 10-20 [facility] Laboratory - CoagulationOrde red By: Jake Harding on 11-05-2023 INR Coag (Bld) [Relative time] 1.6 {INR} [facility] PT Coag (PPP) [Time] 19.5 s 11.7-14.9 [place] [facility] - Hematology and Cell countsOrdered By: Jake Harding on 11-05-2023 Anisocytosis Ql (Bld) 2+ [facility] MCH (RBC) [Entitic mass] 23.4 pg 27.0-32.0 [facility] MCHC (RBC) [Mass/Vol] 30.3 g/dL 32-36 [facility] Nucleated RBC/100 WBC (Bld) [Ratio] 0 % 0-5 [facility] Platelet mean volume (Bld) [Entitic vol] 9.9 fL 6.2-12.0 [facility] Platelets (Bld) [#/Vol] 69 10*3/uL 150-450 [facility] - Microbiology an d Antimicrobial susceptibilityOrdered By: Jake Harding on 11-05-2023 SARS-CoV-2 (COVID-19) RNA PHYLLIS+probe Ql (Unsp spec) [facility] SARS-CoV-2 (COVID-19) RNA PHYLLIS+probe Ql (Unsp spec) [facility] Mucus LM Ql (Urine sed)Order ed By: Jake Harding on 11-05-2023 Mucus Ql (Urine sed) 1+ /hpf [place] Nitrite Test strip Ql (U)Ord ered By: Jake Harding on 11-05-2023 Nitrite Ql (U) Negative Negative [facility] No Panel InformationOrdered By: Jake Harding on 11-05-2023 Urine RBC 0-5 SEEN /hpf 0-5 [facility] 0-5 SEEN /hpf 0-5 [facility] Estimated Creatinine Clearance Calc 81.94 ml/min [facility] Estimated GFR (MDRD) Amer 88 mL/min >60 [facility] Comment on above: GFR Calc Estimated GFR (MDRD) Non-Af Amer 73 mL/min >60 [facility] Comment on above: Non- GFR Calc 23.4 pg 27.0-32.0 [facility] 30.3 g/dL 32-36 [facility] 69 K/mm3 150-450 [facility] 9.9 fl 6.2-12.0 [facility] 0 % 0-5 [facility] 2+ [facility] 19.5 SECONDS 11.7-14.9 [facility] 1.6 [facility] 73 mL/min >60 [facility] 88 mL/min >60 [facility] 81.94 ml/min [facility] 13.7 RATIO 10-20 [facility] 4.3 g/dL 2.2-4.2 [facility] 0.6 RATIO 0.9-2.4 [facility] 45 U/L 13-75 [facility] 139 U/L 45-117 [facility] 52 U/L 13-56 [facility] 25.0 mmol/L 21.0-32.0 [facility] Protein Test strip Ql (U)Ord ered By: Jake Harding on 11-05-2023 Protein Ql (U) 30 mg/dl Negative [facility] RBC Auto (Bld) [#/Vol]Ordere d By: Jake Harding on 11-05-2023 RBC (Bld) [#/Vol] 4.02 10*6/uL 4.2-5.4 [facility] Serum or plasma calcium latrice urement (mass/volume)Ordered By: Jake Harding on 11-05-2023 Calcium [Mass/Vol] 9.0 mg/dL 8.5-10.1 [facility] Serum or plasma choriogonado tropin detectionOrdered By: Jake Harding on 11-05-2023 HCG ( test) Ql Negative [facility] Serum or plasma creatinine m easurement (mass/volume)Ordered By: Jake Harding on 11-05-2023 Creatinine [Mass/Vol] 0.88 mg/dL 0.55-1.02 [facility] Comment on above: The validity of the calculated GFR & GFRAA in patients over 70 years has not been determined. Clinical correlation is essential. Serum or plasma urea nitroge n measurement (mass/volume)Ordered By: Jake Harding on 11-05-2023 Urea nitrogen [Mass/Vol] 12 mg/dL 7-18 [facility] Squamous epithelial cells de tection in urine sediment by light microscopyOrdered By: Jake Harding on 11-05-2023 Epithelial cells.squamous LM Ql (Urine sed) 10-25 SEEN /hpf 5-10 [facility] Thin prep Papanicolaou smear with manual screeningOrdered By: Jake Harding on 11-05-2023 Thin prep Papanicolaou smear with manual screening 2+ [facility] Thin prep Papanicolaou smear with manual screening 2.5 g/dL 3.2-5.0 [facility] Thin prep Papanicolaou smear with manual screening 98 U/L 15-37 [facility] Thin prep Papanicolaou smear with manual screening 2 5-15 [facility] Urine blood detectionOrdered By: Jake Hrading on 11-05-2023 RBC Ql (U) 50 /ul Negative [facility] Urine clarityOrdered By: Osmany Harding on 11-05-2023 Clarity (U) Sl. Cloudy Clear [facility] Urine color determinationOrd ered By: Jake Harding on 11-05-2023 Color (U) Yellow Yellow [facility] Urine glucose detectionOrder ed By: Jake Harding on 11-05-2023 Glucose Ql (U) Normal mg/dl Normal [facility] Urine leukocyte esterase det ection by dipstickOrdered By: Jake Harding on 11-05-2023 Leukocyte esterase Test strip Ql (U) 100 /ul Negative [facility] Urine pHOrdered By: Jake adhikari on 11-05-2023 pH (U) 6.0 [pH] 5.0 - 8.0 [facility] Urine sediment bacteria coun t by microscopy (number/high power field)Ordered By: Jake Harding on 11-05-2023 Bacteria LM.HPF (Urine sed) [#/Area] RARE /hpf None Seen [facility] Urine specific gravity measu rementOrdered By: Jake Harding on 11-05-2023 Specific gravity (U) [Rel density] 1.025 1.002-1.030 [facility] Urine urobilinogen measureme ntOrdered By: Jake Harding on 11-05-2023 Urobilinogen Ql (U) 8 mg/dl Normal [facility] Absolute lymphocyte countOrd ered By: Oscar Pantoja on 2023 Lymphocytes Auto (Unsp spec) [#/Vol] 2.88 10*3/uL 0.83-4.51 [facility] Basophil percentageOrdered B y: Oscar Pantoja on 2023 Basophil percentage 2.3 mg/dL 2.5-4.9 [facility] Basophil percentage 106 mg/dL 74-106 [facility] Basophil percentage 6.8 g/dL 6.4-8.2 [facility] Basophil percentage 1.90 mg/dL 0.20-1.00 [facility] Basophil percentage 138 mmol/L 136-145 [facility] Basophil percentage 4.1 mmol/L 3.5-5.1 [facility] Basophil percentage 111 mmol/L 98-107 [facility] Basophils (Bld) [#/Vol] 10.3 10*3/uL 4.4-11.0 [facility] Basophils (Bld) [#/Vol] 5.8 10*3/uL 2.0-7.7 [facility] Basophils/100 WBC (Bld) 1.0 % 0-1 [facility] Basophils/100 WBC (Bld) 56.5 % 47-70 [facility] Basophils/100 WBC (Bld) 3.2 % 0-5 [facility] Bilirubin [Mass/Vol] 1.90 mg/dL 0.20-1.00 [place] Comment on above: For patients on eltr ombopag therapy, use of Dimension [place] TBIL is not recommended. Chloride [Moles/Vol] 111 mmol/L 98-107 [place] Eosinophils/100 WBC (Bld) 3.2 % 0-5 [facility] Glucose [Mass/Vol] 106 mg/dL 74-106 [facility] Comment on above: Fasting Glucose resu lt from 100 to 125 mg/dL suggests IMPAIRED HOMEOSTASIS per A.D.A. criteria. Neutrophils (Bld) [#/Vol] 5.8 10*3/uL 2.0-7.7 [facility] Neutrophils/100 WBC (Bld) 56.5 % 47-70 [facility] Potassium [Moles/Vol] 4.1 mmol/L 3.5-5.1 [facility] Protein [Mass/Vol] 6.8 g/dL 6.4-8.2 [facility] Sodium [Moles/Vol] 138 mmol/L 136-145 [facility] WBC (Bld) [#/Vol] 10.3 10*3/uL 4.4-11.0 [facility] Blood erythrocytes count (nu mber/volume)Ordered By: Oscar Pantoja on 2023 RBC (Bld) [#/Vol] 4.21 10*6/uL 4.2-5.4 [facility] Blood hemoglobin measurement (mass/volume)Ordered By: Oscar Pantoja on 2023 Hemoglobin (Bld) [Mass/Vol] 9.6 g/dL 12.0-15.0 [facility] Blood lymphocytes/100 leukoc ytesOrdered By: Oscar Pantoja on 2023 Lymphocytes/100 WBC (Bld) 27.9 % 19-41 [facility] Blood monocytes/100 leukocyt esOrdered By: Oscar Pantoja on 2023 Monocytes/100 WBC (Bld) 11.0 % 0-10 [facility] Determination of erythrocyte mean corpuscular volume (MCV)Ordered By: Oscar Pantoja on 2023 MCV (RBC) [Entitic vol] 77.2 fL 81-99 [facility] Hematocrit Auto (Bld) [Volum e fraction]Ordered By: Oscar Pantoja on 2023 Hematocrit (Bld) [Volume fraction] 32.5 % 37-47 [facility] Laboratory - Chemistry and C hemistry - challengeOrdered By: Oscar Pantoja on 2023 ALP [Catalytic activity/Vol] 139 U/L 45-117 [facility] ALT [Catalytic activity/Vol] 64 U/L 13-56 [facility] CO2 [Moles/Vol] 22.0 mmol/L 21.0-32.0 [facility] Globulin (S) [Mass/Vol] 4.5 g/dL 2.2-4.2 [facility] Magnesium [Mass/Vol] 1.7 mg/dL 1.6-2.6 [place] Urea nitrogen/Creatinine [Mass ratio] 5.1 mg/mg 10-20 [facility] Laboratory - Hematology and Cell countsOrdered By: Oscar Pantoja on 2023 Anisocytosis Ql (Bld) 1+ [facility] Erythrocyte distribution width (RBC) [Entitic vol] 63.6 fL 35.1-43.9 [facility] Erythrocyte distribution width (RBC) [Ratio] 22.8 % 11.6-14.6 [facility] Immature granulocytes/100 WBC (Bld) 0.400 % 0.0-0.9 [facility] Comment on above: IG% - Immature Granu locytes (promyelocytes, myelocytes and metamyelocytes) > 1% indicates that a LEFT SHIFT is Present. MCH (RBC) [Entitic mass] 22.8 pg 27.0-32.0 [facility] Nucleated RBC/100 WBC (Bld) [Ratio] 0 % 0-5 [facility] MCHC Auto (RBC) [Mass/Vol]Or dered By: Oscar Pantoja on 2023 MCHC (RBC) [Mass/Vol] 29.5 g/dL 32-36 [facility] No Panel InformationOrdered By: Oscar Pantoja on 2023 Estimated Creatinine Clearance Calc 72.18 ml/min [facility] Estimated GFR (MDRD) Amer 77 mL/min >60 [facility] Comment on above: GFR Calc Estimated GFR (MDRD) Non-Af Amer 64 mL/min >60 [facility] Comment on above: Non- GFR Calc 22.8 pg 27.0-32.0 [facility] 22.8 % 11.6-14.6 [facility] 63.6 fl 35.1-43.9 [facility] 0.400 % 0.0-0.9 [facility] 0 % 0-5 [facility] 1+ [facility] 64 mL/min >60 [facility] 77 mL/min >60 [facility] 72.18 ml/min [facility] 5.1 RATIO 10-20 [facility] 4.5 g/dL 2.2-4.2 [facility] 139 U/L 45-117 [facility] 64 U/L 13-56 [facility] 1.7 mg/dL 1.6-2.6 [facility] 22.0 mmol/L 21.0-32.0 [facility] Platelets bldOrdered By: Carlin Pantoja on 2023 Platelets (Bld) [#/Vol] 115 10*3/uL 150-450 [facility] Serum or plasma albumin latrice urement (mass/volume)Ordered By: Oscar Pantoja on 2023 Albumin [Mass/Vol] 2.3 g/dL 3.2-5.0 [facility] Serum or plasma albumin/glob ulin mass ratioOrdered By: Oscar Pantoja on 2023 Albumin/Globulin [Mass ratio] 0.5 {ratio} 0.9-2.4 [facility] Serum or plasma calcium latrice urement (mass/volume)Ordered By: Oscar Pantoja on 2023 Calcium [Mass/Vol] 8.4 mg/dL 8.5-10.1 [facility] Serum or plasma creatinine m easurement (mass/volume)Ordered By: Oscar Pantoja on 2023 Creatinine [Mass/Vol] 0.98 mg/dL 0.55-1.02 [facility] Comment on above: The validity of the calculated GFR & GFRAA in patients over 70 years has not been determined. Clinical correlation is essential. Serum or plasma urea nitroge n measurement (mass/volume)Ordered By: Oscar Pantoja on 2023 Urea nitrogen [Mass/Vol] 5 mg/dL 7-18 [facility] Thin prep Papanicolaou smear with manual screeningOrdered By: Oscar Pantoja on 2023 Thin prep Papanicolaou smear with manual screening 128 U/L 15-37 [facility] Thin prep Papanicolaou smear with manual screening 5 5-15 [facility] Bacteria identified Cx Nom ( U)Ordered By: Elena Hoff on 10-07-2023 Culture, urine Meth. resistant Stap h. aureus [facility] Culture, urine Meth. resistant Stap h. aureus [facility] Blood manual differential co mment interpretation (narrative result)Ordered By: Elena Hoff on 10-07-2023 Manual differential comment Eliezer (Bld) [Interp] SCANNED [facility] Body fluid appearanceOrdered By: Elena Hoff on 10-07-2023 Appearance (Body fld) CLEAR [facility] Body fluid color determinati onOrdered By: Elena Hoff on 10-07-2023 Color (Body fld) YELLOW [facility] Body fluid lactate dehydroge nase measurement (enzymatic activity/volume) by pyruvateOrdered By: Elena Hoff on 10-07-2023 LDH Pyruvate to lactate reaction (Body fld) [Catalytic activity/Vol] 53 Units/L Not Establ. [facility] Body fluid leukocytes count (number/volume)Ordered By: Elena Hoff on 10-07-2023 WBC (Body fld) [#/Vol] 0.211 10*3/uL [facility] Body fluid lymphocytes/100 l eukocytesOrdered By: Elena Hoff on 10-07-2023 Lymphocytes/100 WBC (Body fld) 39 % [facility] Body fluid macrophage countO rdered By: Elena Hoff on 10-07-2023 Macrophages (Body fld) [#/Vol] 41 % [facility] Body fluid mesothelial cell percentageOrdered By: Elena Hoff on 10-07-2023 Mesothelial cells/100 WBC (Body fld) 5 % [facility] Body fluid protein measureme nt (mass/volume)Ordered By: Elena Hoff on 10-07-2023 Protein (Body fld) [Mass/Vol] 1.0 g/dL Not Establ. [facility] Body fluid segmented neutrop hils count (number/volume)Ordered By: Elena Hoff on 10-07-2023 Segmented neutrophils (Body fld) [#/Vol] 14 % [facility] Culture, urineOrdered By: Nan Hoff on 10-07-2023 Bacteria identified Cx Nom (U) Meth. resistant Staph. aureus [facility] Bacteria identified Cx Nom (U) Meth. resistant Staph. aureus [facility] Mononuclear cells Auto (Body fld) [#/Vol]Ordered By: Elena Hoff on 10-07-2023 Mononuclear cells (Body fld) [#/Vol] 0.197 10*3/uL [facility] No Panel InformationOrdered By: Elena Hoff on 10-07-2023 Body Fluid Comment 2 SEE COMMENT [facility] Body Fluid Glucose 130 mg/dL 40-70 [facility] Body Fluid Mononuclear WBCs (%) 93.3 % [facility] Body Fluid Pathologist Comment May follow [facility] Body Fluid Polynuclear WBCs (#) 0.014 10^3/uL [facility] Body Fluid Polynuclear WBCs (%) 6.7 % [facility] Body Fluid RBC 177 /mm3 [facility] 177 /mm3 [facility] 6.7 % [facility] 93.3 % [facility] 0.014 10^3/uL [facility] SEE COMMENT [facility] 130 mg/dL 40-70 [facility] Pathologist interpretation o f Body fluid testsOrdered By: Elena Hoff on 10-07-2023 Pathologist interpretation (Body fld) [Interp] Reviewed [facility] Comment on above: Previous reported re sult: May follow Edited by: RGOSHIRA on 10/11/23:0927Negative for malignant cells.Please also refer to cytology report [id number].Wilder Godfrey M.D. 10/11/23 AMENDED REPORT 10/11/23 0927 PATH COMM/BF previously reported as: May follow Specimen source identificati on of body fluidOrdered By: Elena Hoff on 10-07-2023 Specimen source Nom (Body fld) ASCITES FLUID [facility] Thin prep Papanicolaou smear with manual screeningOrdered By: Elena Hoff on 10-07-2023 Thin prep Papanicolaou smear with manual screening 1 % [facility] Thin prep Papanicolaou smear with manual screening 1+ [facility] Total cell countOrdered By: Elena Hoff on 10-07-2023 Cells counted Molgen (Bld/Tiss) [#] 0.276 10^3/ul 0.000-0.000 [facility] Comment on above: This is the Total Nu mber of Nucleated Cell Types in the Body Fluid. Blood platelet adequacy dete ction by light microscopyOrdered By: Darius Rosales on 10-06-2023 Platelets LM Ql (Bld) MOD DEC ADEQ [facility] Blood platelet mean volumeOr dered By: Darius Rosales on 10-06-2023 Platelet mean volume (Bld) [Entitic vol] TNP [facility] Comment on above: Test not performed Direct bilirubinOrdered By: Darius Rosales on 10-06-2023 Bilirubin.direct [Mass/Vol] 0.94 mg/dL 0.00-0.30 [facility] Hypochromatic red blood cell detectionOrdered By: Darius Rosales on 10-06-2023 Hypochromia Ql (Bld) 1+ [place] INR in Blood by Coagulation assayOrdered By: Darius Rosales on 10-06-2023 INR Coag (Bld) [Relative time] 1.8 {INR} [facility] Laboratory - Chemistry and C hemistry - challengeOrdered By: Darius Rosales on 10-06-2023 Lipase [Catalytic activity/Vol] 38 U/L [facility] Comment on above: Please note:LIPASE r evised reference range effective 23. New Lipase methodology. Expected to produce lower values than the previous assay method. NEW Reference Range: 13 - 75 U/L Laboratory - CoagulationOrde red By: Darius Rosales on 10-06-2023 PT Coag (PPP) [Time] 21.1 s 11.7-14.9 [place] No Panel InformationOrdered By: Darius Rosales on 10-06-2023 21.1 SECONDS 11.7-14.9 [facility] 38 U/L [facility] Ovalocyte detectionOrdered B y: Darius Rosales on 10-06-2023 Ovalocytes LM Ql (Bld) RARE [facility] RBC morphologyOrdered By: Do lucille Rosales on 10-06-2023 RBC morphology finding Nom (Bld) N CHROM NORMAL NORM C&C [facility] Basophil percentageOrdered B y: Emperatriz Craig on 09-24-2023 Basophil percentage 122 mg/dL 74-106 [facility] Basophil percentage 144 mmol/L 136-145 [facility] Basophil percentage 3.6 mmol/L 3.5-5.1 [facility] Basophil percentage 117 mmol/L 98-107 [facility] Chloride [Moles/Vol] 117 mmol/L 98-107 [place] Glucose [Mass/Vol] 122 mg/dL 74-106 [facility] Comment on above: Fasting Glucose resu lt from 100 to 125 mg/dL suggests IMPAIRED HOMEOSTASIS per A.D.A. criteria. Potassium [Moles/Vol] 3.6 mmol/L 3.5-5.1 [facility] Sodium [Moles/Vol] 144 mmol/L 136-145 [facility] Laboratory - Chemistry and C hemistry - challengeOrdered By: Emperatriz Craig on 09-24-2023 CO2 [Moles/Vol] 22.0 mmol/L 21.0-32.0 [facility] Urea nitrogen/Creatinine [Mass ratio] 12.0 mg/mg - [facility] Laboratory - Microbiology an d Antimicrobial susceptibilityOrdered By: Emperatriz Craig on 09-24-2023 SARS-CoV-2 (COVID-19) RNA PHYLLIS+probe Ql (Unsp spec) [facility] SARS-CoV-2 (COVID-19) RNA PHYLLIS+probe Ql (Unsp spec) [facility] No Panel InformationOrdered By: Emperatriz Craig on 09-24-2023 Estimated Creatinine Clearance Calc 53.82 ml/min [facility] Estimated GFR (MDRD) Amer 76 mL/min >60 [facility] Comment on above: GFR Calc Estimated GFR (MDRD) Non-Af Amer 63 mL/min >60 [facility] Comment on above: Non- GFR Calc 63 mL/min >60 [facility] 76 mL/min >60 [facility] 53.82 ml/min [facility] 12.0 RATIO 07-15 [facility] 22.0 mmol/L 21.0-32.0 [facility] Serum or plasma calcium latrice urement (mass/volume)Ordered By: Emperatriz Craig on 09-24-2023 Calcium [Mass/Vol] 8.9 mg/dL 8.5-10.1 [facility] Serum or plasma creatinine m easurement (mass/volume)Ordered By: Emperatriz Craig on 09-24-2023 Creatinine [Mass/Vol] 1.00 mg/dL 0.55-1.02 [facility] Comment on above: The validity of the calculated GFR & GFRAA in patients over 70 years has not been determined. Clinical correlation is essential. Serum or plasma urea nitroge n measurement (mass/volume)Ordered By: Emperatriz Craig on 09-24-2023 Urea nitrogen [Mass/Vol] 12 mg/dL 7-18 [facility] Thin prep Papanicolaou smear with manual screeningOrdered By: Emperatriz Craig on 09-24-2023 Thin prep Papanicolaou smear with manual screening 5 5-15 [facility] 36on 09-20-2023 36 Unable to contact patient X2 Normal [facility] 36on 09-16-2023 36 S: Patient admitted to: [facility] 09/09/23 B: Discharged on : 09/15/23 A: Hospital follow up call initiated to discuss any medication changes, follow up appointments and discharge instructions: Small bowel obstruction R: No contact x 1 at : [phone] [facility] BASIC METABOLIC PANELon 12 Anion gap [Moles/Vol] 5 mmol/L Normal 3-13 [facility] Comment on above: Performed By: #### L [id number] ####Interface Control Officer: HALLEY HERNANDEZ ([id number])[facility])[address] [place] [address] Calcium [Mass/Vol] 8.3 mg/dL Low 8.4-10.4 [facility] Comment on above: Performed By: #### L AB15 ####Interface Control Officer: HALLEY HERNANDEZ ([id number])[facility] ([facility])[address] [place] [address] Chloride [Moles/Vol] 107 mmol/L Normal 98-107 [facility] Comment on above: Performed By: #### L AB15 ####Interface Control Officer: HALLEY HERNANDEZ ([id number])[facility] ([facility])[address] [place] [address] CO2 [Moles/Vol] 23 mmol/L Normal - [facility] Comment on above: Performed By: #### L AB15 ####Interface Control Officer: HALLEY HERNANDEZ ([id number])[facility] ([facility])[address] [place] [address] Creatinine [Mass/Vol] 0.71 mg/dL Normal 0.52-1.04 [facility] Comment on above: Performed By: #### L AB15 ####Interface Control Officer: HALLEY HERNANDEZ ([id number])[facility])[address] [place] [address] GLOMERULAR FILTRATION RATE ML/MIN/1.73 SQ M.PREDICTED >90.0 Normal >60.0 [facility] Comment on above: Result Comment: Calc ulation based on the Chronic Kidney Disease Epidemiology Collaboration (CKD-EPI) equation refit without adjustment for race Performed By: #### L AB15 ####Interface Control Officer: HALLEY HERNANDEZ ([id number])[facility] ([facility])[address] [place] [address] Glucose [Mass/Vol] 128 mg/dL High 70-100 [facility] Comment on above: Performed By: #### L AB15 ####Interface Control Officer: HALLEY HERNANDEZ ([id number])[facility] ([facility])[address] [place] [address] Potassium [Moles/Vol] 3.4 mmol/L Low 3.5-5.1 [facility] Comment on above: Performed By: #### L AB15 ####Interface Control Officer: HALLEY HERNANDEZ ([id number])[facility])[address] [place] [address] Sodium [Moles/Vol] 136 mmol/L Normal 135-145 [facility] Comment on above: Performed By: #### L AB15 ####Interface Control Officer: HALLEY HERNANDEZ ([id number])[facility])[address] [place] [address] Urea nitrogen [Mass/Vol] 4 mg/dL Low 7-17 [facility] Comment on above: Performed By: #### L AB15 ####Interface Control Officer: HALLEY HERNANDEZ ([id number])[facility])[address] [place] [address] Basic metabolic 1998 panelon 09-15-2023 Anion gap [Moles/Vol] 5 mmol/L 3 - 13 mmol/L [facility] Calcium [Mass/Vol] 8.3 mg/dL Low 8.4 - 10. 4 mg/dL [facility] Chloride [Moles/Vol] 107 mmol/L 98 - 10 7 mmol/L [facility] CO2 [Moles/Vol] 23 mmol/L 22 - 30 mmol/L [facility] Creatinine [Mass/Vol] 0.71 mg/dL 0.52 - 1.04 mg/dL [facility] GFR/1.73 sq M.predicted MDRD (S/P/Bld) [Vol rate/Area] - PINF [facility] Comment on above: Calculation based on the Chronic Kidney Disease Epidemiology Collaboration (CKD-EPI) equation refit without adjustment for race Glucose [Mass/Vol] 128 mg/dL High 70 - 100 mg/dL [facility] Interpretation and review of laboratory results Abnormal [facility] Potassium [Moles/Vol] 3.4 mmol/L Low 3.5 - 5.1 mmol/L [facility] Sodium [Moles/Vol] 136 mmol/L 135 - 145 mmol/L [facility] Urea nitrogen [Mass/Vol] 4 mg/dL Low 7 - 17 mg/dL [facility] CARECOORDon 09-15-2023 [facility] Social work follow u p on discharge. SHELL notified by patients bedside RN patient needs assist with transport to home. SHELL spoke to patient to confirm address on file is correct. She reports she typically will use her [employer] for transport and uses their [employer] service. [facility] [phone]. Transport arranged for orange picker at [address] [place] [address] between 4:12-6:12pm. They will call the unit 15 minutes prior to their arrival . Ref # [id number]. nursing home social worker updated patients bedside RN, who will update the patient. Normal [facility] CBC (HEMOGRAM)on 09-15-2023 Erythrocyte distribution width (RBC) [Ratio] 21.7 % High 11.5-14.5 [facility] Comment on above: Result Comment: I-An isocytosis Performed By: #### L [id number] #### Interface Control Officer: HALLEY HERNANDEZ ([id number]) [facility] ([facility]) [address] [place] [address] ERYTHROCYTE MEAN CORPUSCULAR HEMOGLOBIN CONCENTRATION (G/DL) BY AUTOMATED 31.5 % Low 32.0-36.0 [facility] Comment on above: Performed By: #### L [id number] #### Interface Control Officer: HALLEY HERNANDEZ ([id number]) [facility]) [address] [place] [address] Hematocrit (Bld) [Volume fraction] 25.3 % Low 35.0-47.0 [facility] Comment on above: Performed By: #### L [id number] #### Interface Control Officer: HALLEY HERNANDEZ ([id number]) [facility]) [address] [place] [address] Hemoglobin (Bld) [Mass/Vol] 8.0 g/dL Low 11.7-16.0 [facility] Comment on above: Performed By: #### L [id number] #### Interface Control Officer: HALLEY HERNANDEZ ([id number]) [facility] ([facility]) [address] [place] [address] MCH (RBC) [Entitic mass] 22.7 pg Low 26.0-34.0 [facility] Comment on above: Performed By: #### L [id number] #### Interface Control Officer: HALLEY HERNANDEZ ([id number]) [facility] ([facility]) [address] [place] [address] MCV (RBC) [Entitic vol] 72.0 fL Low 80.0-98.0 [facility] Comment on above: Performed By: #### L [id number] #### Interface Control Officer: HALLEY HERNANDEZ ([id number]) [facility] ([facility]) [address] [place] [address] Platelet mean volume (Bld) [Entitic vol] 9.6 fL Normal 7.4-12.4 [facility] Comment on above: Performed By: #### L [id number] #### Interface Control Officer: HALLEY HERNANDEZ ([id number]) [facility]) [address] [place] [address] Platelets (Bld) [#/Vol] 55 10*3/uL Low 140-440 [facility] Comment on above: Result Comment: I-Th rombocytopenia Performed By: #### L [id number] #### Interface Control Officer: HALLEY HERNANDEZ ([id number]) [facility] ([facility]) [address] [place] [address] RBC (Bld) [#/Vol] 3.51 10*6/uL Low 3.8-5.20 [facility] Comment on above: Performed By: #### L [id number] #### Interface Control Officer: HLALEY HERNANDEZ ([id number]) [facility]) [address] [place] [address] WBC (Bld) [#/Vol] 4.5 10*3/uL Normal 3.6-10.7 [facility] Comment on above: Performed By: #### L [id number] #### Interface Control Officer: HALLEY HERNANDEZ ([id number]) [facility] ([facility]) [address] [place] [address] CBC panel Auto (Bld)on 09-15 Erythrocyte distribution width (RBC) [Ratio] 21.7 % High 11.5 - 14.5 % [facility] Comment on above: I-Anisocytosis Hematocrit (Bld) [Volume fraction] 25.3 % Low 35.0 - 47.0 % [facility] Hemoglobin (Bld) [Mass/Vol] 8.0 g/dL Low 11.7 - 16.0 g/dL [facility] Interpretation and review of laboratory results Abnormal [facility] MCH (RBC) [Entitic mass] 22.7 pg Low 26.0 - 34.0 pg [facility] MCHC (RBC) [Mass/Vol] 31.5 % Low 32.0 - 36.0 % [facility] MCV (RBC) [Entitic vol] 72.0 fL Low 80.0 - 98.0 fL [facility] Platelet mean volume (Bld) [Entitic vol] 9.6 fL 7.4 - 12.4 fL [facility] Platelets (Bld) [#/Vol] 55 10*3/uL Low 140 - 440 10*3/uL [facility] [employer] Comment on above: I-Thrombocytopenia RBC (Bld) [#/Vol] 3.51 10*6/uL Low 3.8 - 5.20 10*6/uL [facility] [employer] WBC (Bld) [#/Vol] 4.5 10*3/uL 3.6 - 10.7 10*3/uL [facility] [employer] [facility] [employer] Progress Noteon 09-15-2023 Progress Note Nutrition Assessment [...] (S/p paracentesis 09/14 with 1.7L removed) [employer] Strength: Not Performed Nutrition Assessment: 47yo F [...] poor appetite. She reports she is eating "at least half of my meals, but not like I normally would". At home she reports she normally eats [...] On: Kcal/kg Weight Used for Energy Requirements: [place] Weight for Energy Calculation (kg): 50 kg Total Energy Requirements (kcals/day): 27-32 kcal/kg = 9078-4484 kcal/day Weight Used for Protein Requirements: [place] Weight in Kg Used for Protein Requirements: [...] Ordered Anthropometric Measures: Height: 157.5 cm (5' 2.01") Current Body Weight: 95.2 kg (209 lb 14.4 oz) (09/15 bed) Admission Body Weight: (No weight on admit) Usual Body Weight: 90.7 kg (200 lb) (stated) % Weight Change (Calculated): 5 [place] Body Weight (lbs) (Calculated): 110 lbs [place] Body Weight (Kg) (Calculated): 50 kg % [place] Body Weight (Calculated): 190.8 % BMI (kg/m2) [...] Edema, Hemodynamic (more content not included)... Normal [facility] BASIC METABOLIC PANELon 12-2 Anion gap [Moles/Vol] 5 mmol/L Normal 3-13 [facility] Comment on above: Performed By: #### L AB15 ####Interface Control Officer: HALLEY HERNANDEZ ([id number])[address] Calcium [Mass/Vol] 8.2 mg/dL Low 8.4-10.4 [facility] Comment on above: Performed By: #### L AB15 ####Interface Control Officer: HALLEY HERNANDEZ ([id number])[facility])[address] [place] [address] [place] Chloride [Moles/Vol] 110 mmol/L High 98-107 [facility] Comment on above: Performed By: #### L AB15 ####Interface Control Officer: HALLEY HERNANDEZ ([id number])[facility])[address] [place] [address] [place] CO2 [Moles/Vol] 21 mmol/L Low 22-30 [facility] Comment on above: Performed By: #### L AB15 ####Interface Control Officer: HALLEY HERNANDEZ ([id number])[facility])[address] [place] [address] Creatinine [Mass/Vol] 0.62 mg/dL Normal 0.52-1.04 [facility] Comment on above: Performed By: #### L AB15 ####Interface Control Officer: HALLEY HERNANDEZ ([id number])[facility])[address] [place] [address] GLOMERULAR FILTRATION RATE ML/MIN/1.73 SQ M.PREDICTED >90.0 Normal >60.0 [facility] Comment on above: Result Comment: Calc ulation based on the Chronic Kidney Disease Epidemiology Collaboration (CKD-EPI) equation refit without adjustment for race Performed By: #### L AB15 ####Interface Control Officer: HALLEY HERNANDEZ ([id number])[facility] ([facility])[address] [place] [address] Glucose [Mass/Vol] 145 mg/dL High 70-100 [facility] Comment on above: Performed By: #### L AB15 ####Interface Control Officer: HALLEY HERNANDEZ ([id number])[facility])[address] [place] [address] Potassium [Moles/Vol] 3.7 mmol/L Normal 3.5-5.1 [facility] Comment on above: Performed By: #### L [id number] ####Interface Control Officer: HALLEY HERNANDEZ ([id number])[facility])[address] [place] [address] Sodium [Moles/Vol] 136 mmol/L Normal 135-145 [facility] Comment on above: Performed By: #### L [id number] ####Interface Control Officer: HALLEY HERNANDEZ ([id number])[facility])[address] [place] [address] [place] Urea nitrogen [Mass/Vol] 4 mg/dL Low 7-17 [facility] Comment on above: Performed By: #### L [id number] ####Interface Control Officer: HALLEY HERNANDEZ ([id number])[facility] ([facility])[address] Basic metabolic 1998 panelon 09-14-2023 Anion gap [Moles/Vol] 5 mmol/L 3 - 13 mmol/L [facility] Calcium [Mass/Vol] 8.2 mg/dL Low 8.4 - 10. 4 mg/dL [facility] Chloride [Moles/Vol] 110 mmol/L High 98 - 10 7 mmol/L [facility] CO2 [Moles/Vol] 21 mmol/L Low 22 - 30 mmol/L [facility] Creatinine [Mass/Vol] 0.62 mg/dL 0.52 - 1.04 mg/dL [facility] GFR/1.73 sq M.predicted MDRD (S/P/Bld) [Vol rate/Area] - [facility] Comment on above: Calculation based on the Chronic Kidney Disease Epidemiology Collaboration (CKD-EPI) equation refit without adjustment for race Glucose [Mass/Vol] 145 mg/dL High 70 - 100 mg/dL [facility] Interpretation and review of laboratory results Abnormal [facility] Potassium [Moles/Vol] 3.7 mmol/L 3.5 - 5.1 mmol/L [facility] Sodium [Moles/Vol] 136 mmol/L 135 - 145 mmol/L [facility] Urea nitrogen [Mass/Vol] 4 mg/dL Low 7 - 17 mg/dL [facility] CARECOORDon 09-14-2023 CAR[place]OORD Chart reviewed. Tamie ent had paracentesis today with 1700 ml removed. Surgery is following patient for likely ileus -->no plans for intervention and recommend ADAT. Current discharge plan is home no needs once medically stable. Normal [facility] CBC (HEMOGRAM)on 09-14-2023 Erythrocyte distribution width (RBC) [Ratio] 21.3 % High 11.5-14.5 [facility] Comment on above: Result Comment: I-An isocytosis Performed By: #### L [id number] #### Interface Control Officer: JAVID LUTHER ([id number]) [facility] ([facility]) [address] ERYTHROCYTE MEAN CORPUSCULAR HEMOGLOBIN CONCENTRATION (G/DL) BY AUTOMATED 31.7 % Low 32.0-36.0 [facility] Comment on above: Performed By: #### L [id number] #### Interface Control Officer: JAVID LUTHER ([id number]) [facility] ([facility]) [address] Hematocrit (Bld) [Volume fraction] 24.9 % Low 35.0-47.0 [facility] Comment on above: Performed By: #### L [id number] #### Interface Control Officer: JAVID LUTHER ([id number]) [facility] ([facility] [address] Hemoglobin (Bld) [Mass/Vol] 7.9 g/dL Low 11.7-16.0 [facility] Comment on above: Performed By: #### L [id number] #### Interface Control Officer: JAVID LUTHER ([id number]) [facility] ([facility]) [address] MCH (RBC) [Entitic mass] 22.9 pg Low 26.0-34.0 [facility] Comment on above: Performed By: #### L [id number] #### Interface Control Officer: JAVID LUTHER ([id number]) [facility] ([facility]) [address] MCV (RBC) [Entitic vol] 72.1 fL Low 80.0-98.0 [facility] Comment on above: Performed By: #### L [id number] #### Interface Control Officer: JAVID LUTHER ([id number]) [facility] ([facility]) [address] Platelet mean volume (Bld) [Entitic vol] 9.1 fL Normal 7.4-12.4 [facility] Comment on above: Performed By: #### L [id number] #### Interface Control Officer: JAVID LUTHER ([id number]) [facility] ([facility]) [address] Platelets (Bld) [#/Vol] 59 10*3/uL Low 140-440 [facility] Comment on above: Result Comment: I-Th rombocytopenia Performed By: #### L [id number] #### Interface Control Officer: JAVID LUTHER ([id number]) [facility]ITAL[facility]OP[facility] ([facility]) [address] RBC (Bld) [#/Vol] 3.45 10*6/uL Low 3.8-5.20 [facility] Comment on above: Performed By: #### L [id number] #### Interface Control Officer: JAVID LUTHER ([id number]) [facility] ([facility]) [address] WBC (Bld) [#/Vol] 4.6 10*3/uL Normal 3.6-10.7 [facility] Comment on above: Performed By: #### L [id number] #### Interface Control Officer: JAVID LUTHER ([id number]) [facility] ([facility]) [address] CBC panel Auto (Bld)Ordered By: Brooklyn Salter on 09-14-2023 Erythrocyte distribution width (RBC) [Ratio] 21.3 % High 11.5 - 14.5 % [facility] Comment on above: I-Anisocytosis Hematocrit (Bld) [Volume fraction] 24.9 % Low 35.0 - 47.0 % [facility] [employer] Hemoglobin (Bld) [Mass/Vol] 7.9 g/dL Low 11.7 - 16.0 g/dL [facility] [employer] Interpretation and review of laboratory results Abnormal [facility] [employer] MCH (RBC) [Entitic mass] 22.9 pg Low 26.0 - 34.0 pg [facility] [employer] MCHC (RBC) [Mass/Vol] 31.7 % Low 32.0 - 36.0 % [facility] [employer] MCV (RBC) [Entitic vol] 72.1 fL Low 80.0 - 98.0 fL [facility] [employer] Platelet mean volume (Bld) [Entitic vol] 9.1 fL 7.4 - 12.4 fL [facility] Platelets (Bld) [#/Vol] 59 10*3/uL Low 140 - 440 10*3/uL [facility] Comment on above: I-Thrombocytopenia RBC (Bld) [#/Vol] 3.45 10*6/uL Low 3.8 - 5.20 10*6/uL [facility] WBC (Bld) [#/Vol] 4.6 10*3/uL 3.6 - 10.7 10*3/uL [facility] Guidance for paracentesis of Peritoneumon 09-14-2023 Ultrasound-guided [...] PA-C Electronically Signed Date/Time: 09/14/2023 11:36 AM [facility] Patient Name: CAROLINA HIGHTOWER : 1975 Exam Date/Time: 09/14/2023 09:36 Procedure: US GUIDED ABDOMINAL PARACENTESIS Ordering Provider: LIM HARIKRISHNA Reason For Exam: Abdominal distention, pain PROCEDURE: Ultrasound-guided paracentesis PROCEDURAL PERSONNEL Advanced Practice Provider: Windy Pastor PA-C Attending physician, Max Huerta M.D., was available in the department if needed. Indication: Ascites Additional clinical history: None Complications: No immediate complications. [facility] Windy Pastor PA -C - 09/14/2023 [...] Electronically Signed Date/Time: 09/14/2023 11:36 AM EST [facility] Study observation (narrative) Táximo Guidance for paracentesis of PeritoneumOrdered By: Windy Pastor on 09-14-2023 Táximo Work Phone: Nursing Noteon 09-14-2023 Nursing Note Patient to ultrasoun d department for paracentesis. History, medications and allergies reviewed. Samuel Pastor PA-C in to speak with patient. Informed consent obtained. 1700 mL clear yellow colored fluid removed. Patient tolerated procedure well. Bandaid applied to site. Patient discharged to 7W Normal [facility] US GUIDED ABDOMINAL PARACENT ESISon 09-14-2023 US GUIDED ABDOMINAL PARACENTESIS Patient Name: [...] Signed Date/Time: 09/14/2023 11:36 AM EST Normal [facility] BASIC METABOLIC PANELon 12-1 Anion gap [Moles/Vol] 4 mmol/L Normal 3-13 [facility] Comment on above: Performed By: #### L AB15 ####Interface Control Officer: HALLEY HERNANDEZ ([id number])[address] Calcium [Mass/Vol] 8.3 mg/dL Low 8.4-10.4 [facility] Comment on above: Performed By: #### L AB15 ####Interface Control Officer: HALLEY HERNANDEZ ([id number])[facility])[address] [place] [address] Chloride [Moles/Vol] 113 mmol/L High 98-107 [facility] Comment on above: Performed By: #### L AB15 ####Interface Control Officer: HALLEY [id number])[address] CO2 [Moles/Vol] 21 mmol/L Low 22-30 [facility] Comment on above: Performed By: #### L AB15 ####Interface Control Officer: HALLEY [id number])[facility] [address] Creatinine [Mass/Vol] 0.68 mg/dL Normal 0.52-1.04 [facility] Comment on above: Performed By: #### L AB15 ####Interface Control Officer: HALLEY HERNANDEZ ([id number])[facility])[address] [place] [address] GLOMERULAR FILTRATION RATE ML/MIN/1.73 SQ M.PREDICTED >90.0 Normal >60.0 [facility] Comment on above: Result Comment: Calc ulation based on the Chronic Kidney Disease Epidemiology Collaboration (CKD-EPI) equation refit without adjustment for race Performed By: #### L AB15 ####Interface Control Officer: HALLEY HERNANDEZ ([id number])[facility])[address] [place] [address] Glucose [Mass/Vol] 136 mg/dL High 70-100 [facility] Comment on above: Performed By: #### L AB15 ####Interface Control Officer: HALLEY HERNANDEZ ([id number])[facility])[address] [place] [address] Potassium [Moles/Vol] 3.9 mmol/L Normal 3.5-5.1 [facility] Comment on above: Performed By: #### L AB15 ####Interface Control Officer: HALLEY HERNANDEZ ([id number])[facility])[address] [place] [address] Sodium [Moles/Vol] 137 mmol/L Normal 135-145 [facility] Comment on above: Performed By: #### L AB15 ####Interface Control Officer: HALLEY HERNANDEZ ([id number])[facility])[address] [place] [address] [place] Urea nitrogen [Mass/Vol] 2 mg/dL Low 7-17 [facility] Comment on above: Performed By: #### L AB15 ####Interface Control Officer: HALLEY HERNANDEZ ([id number])[facility])[address] [place] [address] Basic metabolic 1998 panelon 09-13-2023 Anion gap [Moles/Vol] 4 mmol/L 3 - 13 mmol/L [facility] Calcium [Mass/Vol] 8.3 mg/dL Low 8.4 - 10. 4 mg/dL [facility] Chloride [Moles/Vol] 113 mmol/L High 98 - 10 7 mmol/L [facility] CO2 [Moles/Vol] 21 mmol/L Low 22 - 30 mmol/L [facility] Creatinine [Mass/Vol] 0.68 mg/dL 0.52 - 1.04 mg/dL [facility] GFR/1.73 sq M.predicted MDRD (S/P/Bld) [Vol rate/Area] - PIN[facility] Comment on above: Calculation based on the Chronic Kidney Disease Epidemiology Collaboration (CKD-EPI) equation refit without adjustment for race Glucose [Mass/Vol] 136 mg/dL High 70 - 100 mg/dL [facility] Interpretation and review of laboratory results Abnormal [facility] Potassium [Moles/Vol] 3.9 mmol/L 3.5 - 5.1 mmol/L [facility] Sodium [Moles/Vol] 137 mmol/L 135 - 145 mmol/L [facility] Urea nitrogen [Mass/Vol] 2 mg/dL Low 7 - 17 mg/dL [facility] CBC (HEMOGRAM)on 09-13-2023 Erythrocyte distribution width (RBC) [Ratio] 21.1 % High 11.5-14.5 [facility] Comment on above: Result Comment: I-An isocytosis Performed By: #### L [id number] ####Interface Control Officer: HALLEY HERNANDEZ ([id number])[address] ERYTHROCYTE MEAN CORPUSCULAR HEMOGLOBIN CONCENTRATION (G/DL) BY AUTOMATED 31.0 % Low 32.0-36.0 [facility] Comment on above: Performed By: #### L [id number] ####Interface Control Officer: HALLEY HERNANDEZ ([id number])[address] Hematocrit (Bld) [Volume fraction] 26.1 % Low 35.0-47.0 [facility] Comment on above: Performed By: #### L [id number] ####Interface Control Officer: HALLEY HERNANDEZ ([id number])[facility] ([facility])[address] [place] [address] Hemoglobin (Bld) [Mass/Vol] 8.1 g/dL Low 11.7-16.0 [facility] Comment on above: Performed By: #### L [id number] ####Interface Control Officer: HALLEY HERNANDEZ ([id number])[facility])[address] [place] [address] MCH (RBC) [Entitic mass] 22.4 pg Low 26.0-34.0 [facility] Comment on above: Performed By: #### L [id number] ####Interface Control Officer: HALLEY HERNANDEZ ([id number])[facility])[address] [place] [address] MCV (RBC) [Entitic vol] 72.4 fL Low 80.0-98.0 [facility] Comment on above: Performed By: #### L [id number] ####Interface Control Officer: HALLEY HERNANDEZ ([id number])[facility] ([facility])[address] [place] [address] Platelet mean volume (Bld) [Entitic vol] 8.8 fL Normal 7.4-12.4 [facility] Comment on above: Performed By: #### L [id number] ####Interface Control Officer: HALLEY HERNANDEZ ([id number])[facility])[address] [place] [address] Platelets (Bld) [#/Vol] 56 10*3/uL Low 140-440 [facility] Comment on above: Result Comment: I-Th rombocytopenia Performed By: #### L [id number] ####Interface Control Officer: HALLEY HERNANDEZ ([id number])[facility])[address] [place] [address] RBC (Bld) [#/Vol] 3.60 10*6/uL Low 3.8-5.20 [facility] Comment on above: Performed By: #### L [id number] ####Interface Control Officer: HALLEY HERNANDEZ ([id number])[facility] ([facility])[address] [place] [address] WBC (Bld) [#/Vol] 4.4 10*3/uL Normal 3.6-10.7 [facility] Comment on above: Performed By: #### L [id number] ####Interface Control Officer: HALLEY HERNANDEZ ([id number])[facility] ([facility])[address] [place] [address] CBC panel Auto (Bld)Ordered By: Robin Riojas on 09-13-2023 Erythrocyte distribution width (RBC) [Ratio] 21.1 % High 11.5 - 14.5 % [facility] Comment on above: I-Anisocytosis Hematocrit (Bld) [Volume fraction] 26.1 % Low 35.0 - 47.0 % [facility] Hemoglobin (Bld) [Mass/Vol] 8.1 g/dL Low 11.7 - 16.0 g/dL [facility] Interpretation and review of laboratory results Abnormal [facility] MCH (RBC) [Entitic mass] 22.4 pg Low 26.0 - 34.0 pg [facility] MCHC (RBC) [Mass/Vol] 31.0 % Low 32.0 - 36.0 % [facility] MCV (RBC) [Entitic vol] 72.4 fL Low 80.0 - 98.0 fL [facility] Platelet mean volume (Bld) [Entitic vol] 8.8 fL 7.4 - 12.4 fL [facility] Platelets (Bld) [#/Vol] 56 10*3/uL Low 140 - 440 10*3/uL [facility] Comment on above: I-Thrombocytopenia RBC (Bld) [#/Vol] 3.60 10*6/uL Low 3.8 - 5.20 10*6/uL [facility] WBC (Bld) [#/Vol] 4.4 10*3/uL 3.6 - 10.7 10*3/uL [facility] AMMONIAon 09-12-2023 Ammonia (P) [Moles/Vol] 42 umol/L High 9-30 [facility] Comment on above: Performed By: #### L AB47 ####Interface Control Officer: HALLEY HERNANDEZ ([id number])[facility] ([facility])[address] [place] [address] CARECOORDon 09-12-2023 [place] Care Managment Initi al Assessment Date: 09/12/2023 Patient Name: Carolina Hightower : 1975 Patient Information Source of Information: Patient Cognition/Language: WFL - Within Functional Limits Permission given to speak with patient inside account representative/caregive r as indicated: Yes Confirmation of Payer with patient/family: Yes Payer Name: [facility] Medicaid : No Confirmation of Primary Care [...] with Significant Other. Meg Herrmann RN Normal [facility] CBC (HEMOGRAM)on 09-12-2023 Erythrocyte distribution width (RBC) [Ratio] 21.1 % High 11.5-14.5 [facility] Comment on above: Result Comment: I-An isocytosis Performed By: #### L [id number] #### Interface Control Officer: JAVID LUTHER ([id number]) [facility] ([facility]) [address] ERYTHROCYTE MEAN CORPUSCULAR HEMOGLOBIN CONCENTRATION (G/DL) BY AUTOMATED 31.5 % Low 32.0-36.0 [facility] Comment on above: Performed By: #### L [id number] #### Interface Control Officer: JAVID LUTHER ([id number]) [facility] ([facility]) [address] Hematocrit (Bld) [Volume fraction] 25.0 % Low 35.0-47.0 [facility] Comment on above: Performed By: #### L [id number] #### Interface Control Officer: JAVID LUTHER ([id number]) [facility] ([facility]) [address] Hemoglobin (Bld) [Mass/Vol] 7.9 g/dL Low 11.7-16.0 [facility] Comment on above: Performed By: #### L [id number] #### Interface Control Officer: JAVID LUTHER ([id number]) [facility] ([facility]) [address] MCH (RBC) [Entitic mass] 22.5 pg Low 26.0-34.0 [facility] Comment on above: Performed By: #### L [id number] #### Interface Control Officer: JAVID LUTHER ([id number]) [facility] [place] ([facility]) [address] MCV (RBC) [Entitic vol] 71.5 fL Low 80.0-98.0 [facility] Comment on above: Performed By: #### L [id number] #### Interface Control Officer: JAVID LUTHER ([id number]) [facility] ([facility]) [address] Platelet mean volume (Bld) [Entitic vol] 8.9 fL Normal 7.4-12.4 [facility] Comment on above: Performed By: #### L [id number] #### Interface Control Officer: JAVID LUTHER ([id number]) [facility] ([facility]) [address] Platelets (Bld) [#/Vol] 58 10*3/uL Low 140-440 [facility] Comment on above: Result Comment: I-Th rombocytopenia Performed By: #### L [id number] #### Interface Control Officer: JAVID LUTHER ([id number]) [facility] ([facility]) [address] RBC (Bld) [#/Vol] 3.50 10*6/uL Low 3.8-5.20 [facility] Comment on above: Performed By: #### L [id number] #### Interface Control Officer: JAVID LUTHER ([id number]) [facility] ([facility]) [address] WBC (Bld) [#/Vol] 5.1 10*3/uL Normal 3.6-10.7 [facility] Comment on above: Performed By: #### L [id number] #### Interface Control Officer: JAVID LUTHER ([id number]) [facility] ([facility]) [address] CBC panel Auto (Bld)Ordered By: Luis Alfredo Brand on 09-12-2023 Erythrocyte distribution width (RBC) [Ratio] 21.1 % High 11.5 - 14.5 % [facility] Comment on above: I-Anisocytosis Hematocrit (Bld) [Volume fraction] 25.0 % Low 35.0 - 47.0 % [facility] Hemoglobin (Bld) [Mass/Vol] 7.9 g/dL Low 11.7 - 16.0 g/dL [facility] Interpretation and review of laboratory results Abnormal [facility] MCH (RBC) [Entitic mass] 22.5 pg Low 26.0 - 34.0 pg [facility] MCHC (RBC) [Mass/Vol] 31.5 % Low 32.0 - 36.0 % [facility] MCV (RBC) [Entitic vol] 71.5 fL Low 80.0 - 98.0 fL [facility] Platelet mean volume (Bld) [Entitic vol] 8.9 fL 7.4 - 12.4 fL [facility] Platelets (Bld) [#/Vol] 58 10*3/uL Low 140 - 440 10*3/uL [facility] Comment on above: I-Thrombocytopenia RBC (Bld) [#/Vol] 3.50 10*6/uL Low 3.8 - 5.20 10*6/uL [facility] WBC (Bld) [#/Vol] 5.1 10*3/uL 3.6 - 10.7 10*3/uL [facility] COMPREHENSIVE METABOLIC PANE [place] 09-12-2023 Albumin [Mass/Vol] 2.9 g/dL Low 3.5-5.0 [facility] Comment on above: Performed By: #### L AB17, [id number] ####Interface Control Officer: HALLEY HERNANDEZ ([id number])[facility] ([facility])[address] [place] [address] ALP [Catalytic activity/Vol] 112 U/L Normal 38-126 [facility] Comment on above: Performed By: #### L AB17, [id number] ####Interface Control Officer: HALLEY HERNANDEZ ([id number])[facility] ([facility])[address] [place] [address] ALT [Catalytic activity/Vol] 54 U/L High 0-34 [facility] Comment on above: Performed By: #### L AB17, [id number] ####Interface Control Officer: HALLEY HERNANDEZ ([id number])[facility] ([facility])[address] [place] [address] [place] Anion gap [Moles/Vol] 6 mmol/L Normal 3-13 [facility] Comment on above: Performed By: #### L AB17, [id number] ####Interface Control Officer: HALLEY HERNANDEZ ([id number])[facility] ([facility])[address] [place] [address] [place] AST [Catalytic activity/Vol] 106 U/L High 15-46 [facility] Comment on above: Performed By: #### L AB17, [id number] ####Interface Control Officer: HALLEY HERNANDEZ ([id number])[facility])[address] [place] [address] Bilirubin [Mass/Vol] 1.9 mg/dL High 0.2-1.3 [facility] Comment on above: Performed By: #### L AB17, [id number] ####Interface Control Officer: HALLEY HERNANDEZ ([id number])[facility])[address] [place] [address] Calcium [Mass/Vol] 8.7 mg/dL Normal 8.4-10.4 [facility] Comment on above: Performed By: #### L AB17, [id number] ####Interface Control Officer: HALLEY HERNANDEZ ([id number])[facility])[address] [place] [address] Chloride [Moles/Vol] 111 mmol/L High 98-107 [facility] Comment on above: Performed By: #### L AB17, [id number] ####Interface Control Officer: HALLEY HERNANDEZ ([id number])[facility])[address] [place] [address] CO2 [Moles/Vol] 19 mmol/L Low 22-30 [facility] Comment on above: Performed By: #### L AB17, [id number] ####Interface Control Officer: HALLEY HERNANDEZ ([id number])[facility])[address] [place] [address] Creatinine [Mass/Vol] 0.64 mg/dL Normal 0.52-1.04 [facility] Comment on above: Performed By: #### L AB17, [id number] ####Interface Control Officer: HALLEY HERNANDEZ ([id number])[facility])[address] [place] [address] GLOMERULAR FILTRATION RATE ML/MIN/1.73 SQ M.PREDICTED >90.0 Normal >60.0 [facility] Comment on above: Result Comment: Calc ulation based on the Chronic Kidney Disease Epidemiology Collaboration (CKD-EPI) equation refit without adjustment for race Performed By: #### L AB17, [id number] ####Interface Control Officer: HALLEY HERNANDEZ ([id number])[facility])[address] [place] [address] Glucose [Mass/Vol] 110 mg/dL High 70-100 [facility] Comment on above: Performed By: #### L AB17, [id number] ####Interface Control Officer: HALLEY HERNANDEZ ([id number])[facility] ([facility])[address] [place] [address] Potassium [Moles/Vol] 3.9 mmol/L Normal 3.5-5.1 [facility] Comment on above: Performed By: #### L AB17, [id number] ####Interface Control Officer: HALLEY HERNANDEZ ([id number])[facility])[address] [place] [address] Protein [Mass/Vol] 6.1 g/dL Low 6.3-8.2 [facility] Comment on above: Performed By: #### L AB17, [id number] ####Interface Control Officer: HALLEY HERNANDEZ ([id number])[facility] ([facility])[address] [place] [address] Sodium [Moles/Vol] 136 mmol/L Normal 135-145 [facility] Comment on above: Performed By: #### L AB17, [id number] ####Interface Control Officer: HALLEY HERNANDEZ ([id number])[facility])[address] [place] [address] Urea nitrogen [Mass/Vol] 3 mg/dL Low 7-17 [facility] Comment on above: Performed By: #### L AB17, [id number] ####Interface Control Officer: HALLEY HERNANDEZ ([id number])[facility])[address] [place] [address] Comprehensive metabolic 1998 panelon 09-12-2023 Albumin [Mass/Vol] 2.9 g/dL Low 3.5 - 5.0 g/dL [facility] ALP [Catalytic activity/Vol] 112 U/L 38 - 126 U/L [facility] ALT [Catalytic activity/Vol] 54 U/L High 0 - 34 U/L [facility] Anion gap [Moles/Vol] 6 mmol/L 3 - 13 mmol/L [facility] AST [Catalytic activity/Vol] 106 U/L High 15 - 46 U/L [facility] Bilirubin [Mass/Vol] 1.9 mg/dL High 0.2 - 1 .3 mg/dL [facility] Calcium [Mass/Vol] 8.7 mg/dL 8.4 - 10. 4 mg/dL [facility] Chloride [Moles/Vol] 111 mmol/L High 98 - 10 7 mmol/L [facility] CO2 [Moles/Vol] 19 mmol/L Low 22 - 30 mmol/L [facility] Creatinine [Mass/Vol] 0.64 mg/dL 0.52 - 1.04 mg/dL [facility] [facility] GFR/1.73 sq M.predicted MDRD (S/P/Bld) [Vol rate/Area] - PINF [facility] Comment on above: Calculation based on the Chronic Kidney Disease Epidemiology Collaboration (CKD-EPI) equation refit without adjustment for race Glucose [Mass/Vol] 110 mg/dL High 70 - 100 mg/dL [facility] Interpretation and review of laboratory results Abnormal [facility] Potassium [Moles/Vol] 3.9 mmol/L 3.5 - 5.1 mmol/L [facility] Protein [Mass/Vol] 6.1 g/dL Low 6.3 - 8.2 g/dL [facility] Sodium [Moles/Vol] 136 mmol/L 135 - 145 mmol/L [facility] Urea nitrogen [Mass/Vol] 3 mg/dL Low 7 - 17 mg/dL [facility] Laboratory - Chemistry and C hemistry - challengeon 09-12-2023 Magnesium [Mass/Vol] 1.6 mg/dL 1.6 - 2 .3 mg/dL [facility] Ammonia (P) [Moles/Vol] 42 umol/L High 9 - 30 umol/L [facility] MAGNESIUMon 09-12-2023 Magnesium [Mass/Vol] 1.6 mg/dL Normal 1.6-2.3 [facility] Comment on above: Performed By: #### L [id number], [id number] ####Interface Control Officer: HALLEY HERNANDEZ ([id number])[facility] ([facility])[address] [place] [address] Magnesium [Mass/Vol]on 09-12 Interpretation and review of laboratory results Normal [facility] No Panel Informationon 09-12 [facility] Interpretation and review of laboratory results Abnormal [facility] Progress Noteon 09-12-2023 Progress Note --- Attestation [...] Performing a medical appropriate exam and evaluation Kaern Yun MD, FACS Division of Trauma Department of Surgery [facility] ~~~~~~~~~~~~~~~~~~~~~~~ ~~~~~~~~~~~~~~~~~~~~~~~ ~~~~~~~~~~~~~~~ This note may have been dictated using [email or web address] Medical Practice Edition 2.6 and/or ipadio Voice Recognition Feature. The document was proofread; however, unrecognized voice recognition director of food and nutrition services errors may be present. Department of General [...] Range Status (more content not included)... Normal [facility] Progress Note [facility] STEELE ADMISSION MEDICATION RECONCILIATION Date: 09/12/23 Room:[facility]6/[facility] A Patient Name: Carolina Hightower Allergies: Aspirin, [...] on last fill dates from patient's [facility]. Home medications to restart if there [...] 09/12/2023 4:18 PM Kaylin Camarillo, PharmD [facility] Progress Note Nutrition Assessment Type [...] in energy intake (Comment) (Pt presented on 12/16 AM and was NPO then advanced to CLD that day. Was advanced to FLD 12/17 which remains her current. She is tolerating FLD with no n/v) Weight Loss: No significant weight loss (Pt reports a UBW of 200# and RD obtained a bed weight of 205.6#. Noted pt with ascites, however insufficient amount for paracentesis upon admit) Body Fat Loss: No significant body fat loss Muscle Mass Loss: No significant muscle mass loss Fluid Accumulation: Mild Ascites Finance Admin Strength: Not Performed Nutrition Assessment: 47yo F [...] On: Kcal/kg Weight Used for Energy Requirements: [place] Weight for Energy Calculation (kg): 50 kg Total Energy Requirements (kcals/day): 27-32 kcal/kg = 5879-4023 kcal/day Weight Used for Protein Requirements: [place] Weight in Kg Used for Protein Requirements: [...] Ordered Anthropometric Measures: Height: 157.5 cm (5' 2.01") Current Body Weight: 93.3 kg (205 lb 9.6 oz) (09/12 bed) Admission Body Weight: (No weight on admission) Usual Body Weight: 90.7 kg (200 lb) (200# stated. Very limited per chart: 12/02/22 208#, 09/29/22 209#, 05/26/22 198#) % Weight Change (Calculated): 2.8 [place] Body Weight (lbs) (Calculated): 110 lbs [place] Body Weight (Kg) (Calculated): 50 kg % [place] Body Weight (Calculated): 186.9 % BMI (kg/m2) [...] to determ (more content not included)... Normal [facility] AMMONIAon 09-11-2023 Ammonia (P) [Moles/Vol] 65 umol/L High 06-25 [facility] Comment on above: Performed By: #### L [id number] ####Interface Control Officer: HALLEY HERNANDEZ ([id number])[facility] ([address] BILIRUBIN, DIRECTon 09-11-20 Bilirubin.indirect [Mass/Vol] 0.0 mg/dL Normal 0.0-0.3 [facility] [employer] [facility] Comment on above: Performed By: #### L AB52, LAB17 ####Interface Control Officer: HALLEY HERNANDEZ ([id number])[facility] ([facility])[address] Bilirubin.indirect [Mass/Vol ]on 09-11-2023 Bilirubin.conjugated [Mass/Vol] 0.0 mg/dL 0.0 - 0.3 mg/dL [facility] Interpretation and review of laboratory results Normal [facility] CARECOORDon 09-11-2023 [facility] Attempted to complet e Initial assessment over the phone. Patient currently unavailable/off unit. Will try again as time allows. TCC will follow. Normal [facility] CBC W Auto Differential pane l (Bld)on 09-11-2023 Basophils (Bld) [#/Vol] 0.0 10*3/uL 0.0 - 0.2 10*3/uL [facility] Basophils/100 WBC (Bld) 0.5 % 0.0 - 2.0 % [facility] [employer] Eosinophils (Bld) [#/Vol] 0.3 10*3/uL 0.0 - 0.5 10*3/uL [facility] Eosinophils/100 WBC (Bld) 4.4 % 1.0 - 6.0 % [facility] [employer] Erythrocyte distribution width (RBC) [Ratio] 21.6 % High 11.5 - 14.5 % [facility] [employer] Comment on above: I-Anisocytosis Hematocrit (Bld) [Volume fraction] 27.4 % Low 35.0 - 47.0 % [facility] [employer] Hemoglobin (Bld) [Mass/Vol] 8.6 g/dL Low 11.7 - 16.0 g/dL [facility] Interpretation and review of laboratory results Abnormal [facility] Lymphocytes (Bld) [#/Vol] 1.6 10*3/uL 1.0 - 4.3 10*3/uL [facility] [employer] Lymphocytes/100 WBC (Bld) 20.6 % 20.0 - 40.0 % [facility] MCH (RBC) [Entitic mass] 22.5 pg Low 26.0 - 34.0 pg [facility] MCHC (RBC) [Mass/Vol] 31.2 % Low 32.0 - 36.0 % [facility] MCV (RBC) [Entitic vol] 72.2 fL Low 80.0 - 98.0 fL [facility] Monocytes (Bld) [#/Vol] 0.9 10*3/uL High 0.0 - 0.8 10*3/uL [facility] Monocytes/100 WBC (Bld) 10.9 % High 2.0 - 10.0 % [facility] Neutrophils (Bld) [#/Vol] 5.0 10*3/uL 1.8 - 7.0 10*3/uL [facility] Neutrophils/100 WBC (Bld) 63.6 % 40.0 - 80.0 % [facility] Nucleated RBC/100 WBC (Bld) [Ratio] 0.0 % [facility] Platelet mean volume (Bld) [Entitic vol] 8.5 fL 7.4 - 12.4 fL [facility] Platelets (Bld) [#/Vol] 61 10*3/uL Low 140 - 440 10*3/uL [facility] Comment on above: I-Thrombocytopenia RBC (Bld) [#/Vol] 3.80 10*6/uL 3.8 - 5.20 10*6/uL [facility] WBC (Bld) [#/Vol] 7.9 10*3/uL 3.6 - 10.7 10*3/uL [facility] CBC WITH AUTO DIFFERENTIALon 09-11-2023 Basophils (Bld) [#/Vol] 0.0 10*3/uL Normal 0.0-0.2 [facility] Comment on above: Performed By: #### L [id number] ####Interface Control Officer: HALLEY HERNANDEZ ([id number])[address] Basophils/100 WBC (Bld) 0.5 % Normal 0.0-2.0 [facility] Comment on above: Performed By: #### L [id number] ####Interface Control Officer: HALLEY HERNANDEZ ([id number])[facility] Eosinophils (Bld) [#/Vol] 0.3 10*3/uL Normal 0.0-0.5 [facility] Comment on above: Performed By: #### L [id number] ####Interface Control Officer: HALLEY HERNANDEZ ([id number])[address] Eosinophils/100 WBC (Bld) 4.4 % Normal 1.0-6.0 [facility] Comment on above: Performed By: #### L [id number] ####Interface Control Officer: HALLEY HERNANDEZ ([id number])[address] Erythrocyte distribution width (RBC) [Ratio] 21.6 % High 11.5-14.5 [facility] Comment on above: Result Comment: I-An isocytosis Performed By: #### L [id number] ####Interface Control Officer: HALLEY HERNANDEZ ([id number])[address] ERYTHROCYTE MEAN CORPUSCULAR HEMOGLOBIN CONCENTRATION (G/DL) BY AUTOMATED 31.2 % Low 32.0-36.0 [facility] Comment on above: Performed By: #### L [id number] ####Interface Control Officer: HALLEY HERNANDEZ ([id number])[address] Hematocrit (Bld) [Volume fraction] 27.4 % Low 35.0-47.0 [facility] Comment on above: Performed By: #### L [id number] ####Interface Control Officer: HALLEY HERNANDEZ ([id number])[address] Hemoglobin (Bld) [Mass/Vol] 8.6 g/dL Low 11.7-16.0 [facility] Comment on above: Performed By: #### L [id number] ####Interface Control Officer: HALLEY [id number])[address] [place] [address] [place] Lymphocytes (Bld) [#/Vol] 1.6 10*3/uL Normal 1.0-4.3 [facility] Comment on above: Performed By: #### L [id number] ####Interface Control Officer: HALLEY HERNANDEZ ([id number])[facility])[address] [place] [address] Lymphocytes/100 WBC (Bld) 20.6 % Normal 20.0-40.0 [facility] Comment on above: Performed By: #### L [id number] ####Interface Control Officer: HALLEY HERNANDEZ ([id number])[facility])[address] [place] [address] MCH (RBC) [Entitic mass] 22.5 pg Low 26.0-34.0 [facility] Comment on above: Performed By: #### L [id number] ####Interface Control Officer: HALLEY HERNANDEZ ([id number])[facility])[address] [place] [address] MCV (RBC) [Entitic vol] 72.2 fL Low 80.0-98.0 [facility] Comment on above: Performed By: #### L [id number] ####Interface Control Officer: HALLEY HERNANDEZ ([id number])[facility])[address] [place] [address] Monocytes (Bld) [#/Vol] 0.9 10*3/uL High 0.0-0.8 [facility] Comment on above: Performed By: #### L [id number] ####Interface Control Officer: HALLEY HERNANDEZ ([id number])[facility])[address] [place] [address] Monocytes/100 WBC (Bld) 10.9 % High 2.0-10.0 [facility] Comment on above: Performed By: #### L [id number] ####Interface Control Officer: HALLEY HERNANDEZ ([id number])[facility])[address] [place] [address] [place] Neutrophils (Bld) [#/Vol] 5.0 10*3/uL Normal 1.8-7.0 [facility] Comment on above: Performed By: #### L [id number] ####Interface Control Officer: HALLEY HERNANDEZ ([id number])[facility] ([facility])[address] [place] [address] Neutrophils/100 WBC (Bld) 63.6 % Normal 40.0-80.0 [facility] Comment on above: Performed By: #### L [id number] ####Interface Control Officer: HALLEY HERNANDEZ ([id number])[facility] ([facility])[address] [place] [address] NRBC (PER 100 WBCS) BY AUTOMATED COUNT 0.0 /100 WBCs Normal 0.0-2.0 [facility] Comment on above: Performed By: #### L [id number] ####Interface Control Officer: HALLEY HERNANDEZ ([id number])[facility] ([facility])[address] [place] [address] Platelet mean volume (Bld) [Entitic vol] 8.5 fL Normal 7.4-12.4 [facility] Comment on above: Performed By: #### L [id number] ####Interface Control Officer: HALLEY HERNANDEZ ([id number])[facility] ([facility])[address] [place] [address] Platelets (Bld) [#/Vol] 61 10*3/uL Low 140-440 [facility] Comment on above: Result Comment: I-Th rombocytopenia Performed By: #### L [id number] ####Interface Control Officer: HALLEY HERNANDEZ ([id number])[facility] ([facility])[address] [place] [address] [place] RBC (Bld) [#/Vol] 3.80 10*6/uL Normal 3.8-5.20 [facility] Comment on above: Performed By: #### L [id number] ####Interface Control Officer: HALLEY HERNANDEZ ([id number])[facility] ([facility])[address] [place] [address] [place] WBC (Bld) [#/Vol] 7.9 10*3/uL Normal 3.6-10.7 [facility] Comment on above: Performed By: #### L [id number] ####Interface Control Officer: HALLEY HERNANDEZ ([id number])[facility] ([facility])[address] [place] [address] COMPREHENSIVE METABOLIC PANE [place] 09-11-2023 Albumin [Mass/Vol] 3.3 g/dL Low 3.5-5.0 [facility] Comment on above: Performed By: #### L AB52, LAB17 ####Interface Control Officer: HALLEY HERNANDEZ ([id number])[facility] ([facility])[address] [place] [address] ALP [Catalytic activity/Vol] 107 U/L Normal 38-126 [facility] Comment on above: Performed By: #### L SIDNEY, LAB17 ####Interface Control Officer: HALLEY HERNANDEZ ([id number])[facility] ([facility])[address] [place] [address] ALT [Catalytic activity/Vol] 52 U/L High 0-34 [facility] Comment on above: Performed By: #### L SIDNEY, LAB17 ####Interface Control Officer: HALLEY HERNANDEZ ([id number])[facility] ([facility])[address] [place] [address] Anion gap [Moles/Vol] 9 mmol/L Normal 3-13 [facility] Comment on above: Performed By: #### L SIDNEY, LAB17 ####Interface Control Officer: HALLEY HERNANDEZ ([id number])[facility] ([facility])[address] [place] [address] AST [Catalytic activity/Vol] 98 U/L High 15-46 [facility] Comment on above: Performed By: #### L AB52, LAB17 ####Interface Control Officer: HALLEY HERNANDEZ ([id number])[facility])[address] [place] [address] Bilirubin [Mass/Vol] 2.3 mg/dL High 0.2-1.3 [facility] Comment on above: Performed By: #### L AB52, LAB17 ####Interface Control Officer: HALLEY HERNANDEZ ([id number])[facility] ([facility])[address] [place] [address] Calcium [Mass/Vol] 8.5 mg/dL Normal 8.4-10.4 [facility] Comment on above: Performed By: #### Mustapha LITTLE, LAB17 ####Interface Control Officer: HALLEY HERNANDEZ ([id number])[facility])[address] [place] [address] [place] Chloride [Moles/Vol] 111 mmol/L High 98-107 [facility] Comment on above: Performed By: #### Mustapha LITTLE, LAB17 ####Interface Control Officer: HALLEY HERNANDEZ ([id number])[facility])[address] [place] [address] CO2 [Moles/Vol] 17 mmol/L Low 22-30 [facility] Comment on above: Performed By: #### Mustapha LITTLE, LAB17 ####Interface Control Officer: HALLEY HERNANDEZ ([id number])[facility])[address] [place] [address] Creatinine [Mass/Vol] 0.73 mg/dL Normal 0.52-1.04 [facility] Comment on above: Performed By: #### Mustapha LITTLE, LAB17 ####Interface Control Officer: HALLEY HERNANDEZ ([id number])[facility] ([facility])[address] [place] [address] GLOMERULAR FILTRATION RATE ML/MIN/1.73 SQ M.PREDICTED >90.0 Normal >60.0 [facility] Comment on above: Result Comment: Calc ulation based on the Chronic Kidney Disease Epidemiology Collaboration (CKD-EPI) equation refit without adjustment for race Performed By: #### Mustapha LITTLE, LAB17 ####Interface Control Officer: HALLEY HERNANDEZ ([id number])[facility] ([facility])[address] [place] [address] [place] Glucose [Mass/Vol] 76 mg/dL Normal 70-100 [facility] Comment on above: Performed By: #### Mustapha LITTLE, LAB17 ####Interface Control Officer: HALLEY HERNANDEZ ([id number])[facility])[address] [place] [address] Potassium [Moles/Vol] 3.4 mmol/L Low 3.5-5.1 [facility] Comment on above: Performed By: #### Mustapha LITTLE, LAB17 ####Interface Control Officer: HALLEY HERNANDEZ ([id number])[facility])[address] [place] [address] Protein [Mass/Vol] 6.8 g/dL Normal 6.3-8.2 [facility] Comment on above: Performed By: #### Mustapha LITTLE, LAB17 ####Interface Control Officer: HALLEY HERNANDEZ ([id number])[facility])[address] [place] [address] Sodium [Moles/Vol] 137 mmol/L Normal 135-145 [facility] Comment on above: Performed By: #### Mustapha LITTLE, LAB17 ####Interface Control Officer: HALLEY HERNANDEZ ([id number])[facility])[address] [place] [address] Urea nitrogen [Mass/Vol] 8 mg/dL Normal 7-17 [facility] Comment on above: Performed By: #### Mustapha LITTLE, LAB17 ####Interface Control Officer: HALLEY HERNANDEZ ([id number])[facility] ([facility])[address] [place] [address] Comprehensive metabolic 1998 panelon 09-11-2023 Albumin [Mass/Vol] 3.3 g/dL Low 3.5 - 5.0 g/dL [facility] ALP [Catalytic activity/Vol] 107 U/L 38 - 126 U/L [facility] ALT [Catalytic activity/Vol] 52 U/L High 0 - 34 U/L [facility] Anion gap [Moles/Vol] 9 mmol/L 3 - 13 mmol/L [facility] AST [Catalytic activity/Vol] 98 U/L High 15 - 46 U/L [facility] Bilirubin [Mass/Vol] 2.3 mg/dL High 0.2 - 1 .3 mg/dL [facility] Calcium [Mass/Vol] 8.5 mg/dL 8.4 - 10. 4 mg/dL [facility] Chloride [Moles/Vol] 111 mmol/L High 98 - 10 7 mmol/L [facility] CO2 [Moles/Vol] 17 mmol/L Low 22 - 30 mmol/L [facility] Creatinine [Mass/Vol] 0.73 mg/dL 0.52 - 1.04 mg/dL [facility] GFR/1.73 sq M.predicted MDRD (S/P/Bld) [Vol rate/Area] - PINF [facility] Comment on above: Calculation based on the Chronic Kidney Disease Epidemiology Collaboration (CKD-EPI) equation refit without adjustment for race Glucose [Mass/Vol] 76 mg/dL 70 - 100 mg/dL [facility] Interpretation and review of laboratory results Abnormal [facility] Potassium [Moles/Vol] 3.4 mmol/L Low 3.5 - 5.1 mmol/L [facility] Protein [Mass/Vol] 6.8 g/dL 6.3 - 8.2 g/dL [facility] Sodium [Moles/Vol] 137 mmol/L 135 - 145 mmol/L [facility] Urea nitrogen [Mass/Vol] 8 mg/dL 7 - 17 mg/dL [facility] Laboratory - Chemistry and C hemistry - challengeon 09-11-2023 Ammonia (P) [Moles/Vol] 65 umol/L High 9 - 30 umol/L [facility] Laboratory - Drug toxicology Ordered By: Lorraine Hernandez on 09-11-2023 Amphetamines Screen method >1000 ng/mL Ql (U) Negative [facility] Barbiturates Screen method >200 ng/mL Ql (U) Negative [facility] Benzodiazepines Ql (U) Negative [facility] Methadone Screen Ql (U) Negative [facility] Opiates Screen Ql (U) Negative [facility] oxyCODONE Ql (U) Negative [facility] Phencyclidine Ql (U) Negative [facility] No Panel InformationOrdered By: Lorraine Hernandez on 09-11-2023 COCAINE METAB. SCREEN Negative [facility] The expected value f or all [...] is needed, request confirmation under separate order. [facility] No Panel Informationon 09-11 [facility] Interpretation and review of laboratory results Abnormal [facility] Nursing Noteon 09-11-2023 Nursing Note Pt was found cris ng the hospital by security, confused. Pt brought back by security and she said she was going outside to smoke. She was very upset that she could not have a smoke. Pt threatened to punch someone in the face. Pt is confused. Normal [facility] Progress Noteon 09-11-2023 Progress Note Nutrition rescreen completed. Patient is NPO/Clear liquid >3 days with cirrhosis. Refer to Dietitian. DUTCH Bowers Normal [facility] AMMONIAon 09-10-2023 Ammonia (P) [Moles/Vol] 78 umol/L High 9-30 [facility] Comment on above: Performed By: #### L [id number] ####Interface Control Officer: HALLEY HERNANDEZ ([id number])[facility] ([facility])[address] [place] [address] CBC (HEMOGRAM)on 09-10-2023 Erythrocyte distribution width (RBC) [Ratio] 21.4 % High 11.5-14.5 [facility] Comment on above: Result Comment: I-An isocytosis Performed By: #### L [id number] #### Interface Control Officer: JAVID LUTHER ([id number]) [facility] ([facility]) [address] [place] [address] ERYTHROCYTE MEAN CORPUSCULAR HEMOGLOBIN CONCENTRATION (G/DL) BY AUTOMATED 31.7 % Low 32.0-36.0 [facility] Comment on above: Performed By: #### L [id number] #### Interface Control Officer: JAVID LUTHER ([id number]) [facility] ([facility]) [address] Hematocrit (Bld) [Volume fraction] 28.8 % Low 35.0-47.0 [facility] Comment on above: Performed By: #### L [id number] #### Interface Control Officer: JAVID LUTHER ([id number]) [facility] ([facility]) [address] Hemoglobin (Bld) [Mass/Vol] 9.1 g/dL Low 11.7-16.0 [facility] Comment on above: Performed By: #### L [id number] #### Interface Control Officer: JAVID LUTHER ([id number]) [facility] ([facility] [address] MCH (RBC) [Entitic mass] 22.5 pg Low 26.0-34.0 [facility] Comment on above: Performed By: #### L [id number] #### Interface Control Officer: JAVID LUTHER ([id number]) [facility] ([facility] [address] MCV (RBC) [Entitic vol] 71.2 fL Low 80.0-98.0 [facility] Comment on above: Performed By: #### L [id number] #### Interface Control Officer: JAVID LUTHER ([id number]) [facility] ([facility] [address] Platelet mean volume (Bld) [Entitic vol] 8.9 fL Normal 7.4-12.4 [facility] Comment on above: Performed By: #### L [id number] #### Interface Control Officer: JAVID LUTHER ([id number]) [facility] ([facility]) [address] [place] [address] [place] Platelets (Bld) [#/Vol] 79 10*3/uL Low 140-440 [facility] Comment on above: Performed By: #### L [id number] #### Interface Control Officer: JAVID LUTHER ([id number]) [facility] ([facility]) [address] RBC (Bld) [#/Vol] 4.05 10*6/uL Normal 3.8-5.20 [facility] Comment on above: Performed By: #### L [id number] #### Interface Control Officer: JAVID LUTHER ([id number]) [facility] ([facility]) [address] WBC (Bld) [#/Vol] 8.2 10*3/uL Normal 3.6-10.7 [facility] Comment on above: Performed By: #### L [id number] #### Interface Control Officer: JAVID LUTHER ([id number]) [facility] ([facility]) [address] CBC panel Auto (Bld)Ordered By: Oscar Wilkins on 09-10-2023 Erythrocyte distribution width (RBC) [Ratio] 21.4 % High 11.5 - 14.5 % [facility] Comment on above: I-Anisocytosis Hematocrit (Bld) [Volume fraction] 28.8 % Low 35.0 - 47.0 % [facility] Hemoglobin (Bld) [Mass/Vol] 9.1 g/dL Low 11.7 - 16.0 g/dL [facility] Interpretation and review of laboratory results Abnormal [facility] MCH (RBC) [Entitic mass] 22.5 pg Low 26.0 - 34.0 pg [facility] MCHC (RBC) [Mass/Vol] 31.7 % Low 32.0 - 36.0 % [facility] MCV (RBC) [Entitic vol] 71.2 fL Low 80.0 - 98.0 fL [facility] [employer] Platelet mean volume (Bld) [Entitic vol] 8.9 fL 7.4 - 12.4 fL [facility] [employer] Platelets (Bld) [#/Vol] 79 10*3/uL Low 140 - 440 10*3/uL [facility] RBC (Bld) [#/Vol] 4.05 10*6/uL 3.8 - 5.20 10*6/uL [facility] WBC (Bld) [#/Vol] 8.2 10*3/uL 3.6 - 10.7 10*3/uL [facility] COMPREHENSIVE METABOLIC PANE [place] 09-10-2023 Albumin [Mass/Vol] 2.8 g/dL Low 3.5-5.0 [facility] Comment on above: Performed By: #### Mustapha KAISER, [id number], LAB17 ####Interface Control Officer: HALLEY HERNANDEZ ([id number])[facility] ([facility])[address] [place] [address] ALP [Catalytic activity/Vol] 146 U/L High 38-126 [facility] Comment on above: Performed By: #### Mustapha KAISER, [id number], LAB17 ####Interface Control Officer: HALLEY HERNANDEZ ([id number])[facility] ([facility])[address] [place] [address] ALT [Catalytic activity/Vol] 54 U/L High 0-34 [facility] Comment on above: Performed By: #### Mustapha KAISER, [id number], LAB17 ####Interface Control Officer: HALLEY HERNANDEZ ([id number])[facility] ([facility])[address] [place] [address] Anion gap [Moles/Vol] 4 mmol/L Normal 3-13 [facility] Comment on above: Performed By: #### Mustapha KAISER, [id number], LAB17 ####Interface Control Officer: HALLEY HERNANDEZ ([id number])[facility] ([facility])[address] [place] [address] AST [Catalytic activity/Vol] 103 U/L High 15-46 [facility] Comment on above: Performed By: #### Mustapha [id number], [id number], LAB17 ####Interface Control Officer: HALLEY HERNANDEZ ([id number])[facility] ([facility])[address] [place] [address] [place] Bilirubin [Mass/Vol] 2.5 mg/dL High 0.2-1.3 [facility] Comment on above: Performed By: #### Mustapha AB103, [id number], LAB17 ####Interface Control Officer: HALLEY HERNANDEZ ([id number])[facility] ([facility])[address] [place] [address] [place] Calcium [Mass/Vol] 8.6 mg/dL Normal 8.4-10.4 [facility] Comment on above: Performed By: #### Mustapha KAISER, [id number], LAB17 ####Interface Control Officer: HALLEY HERNANDEZ ([id number])[facility])[address] [place] [address] Chloride [Moles/Vol] 113 mmol/L High 98-107 [facility] Comment on above: Performed By: #### Mustapha KAISER, [id number], LAB17 ####Interface Control Officer: HALLEY HERNANDEZ ([id number])[facility] ([facility])[address] [place] [address] CO2 [Moles/Vol] 21 mmol/L Low 22-30 [facility] Comment on above: Performed By: #### Mustapha KAISER, [id number], LAB17 ####Interface Control Officer: HALLEY HERNANDEZ ([id number])[facility])[address] [place] [address] Creatinine [Mass/Vol] 0.81 mg/dL Normal 0.52-1.04 [facility] Comment on above: Performed By: #### Mustapha KAISER, [id number], LAB17 ####Interface Control Officer: HALLEY HERNANDEZ ([id number])[facility])[address] [place] [address] GLOMERULAR FILTRATION RATE ML/MIN/1.73 SQ M.PREDICTED 89.1 mL/min/1.73m*2 Normal >60.0 [facility] Comment on above: Result Comment: Calc ulation based on the Chronic Kidney Disease Epidemiology Collaboration (CKD-EPI) equation refit without adjustment for race Performed By: #### Mustapha KAISER, [id number], LAB17 ####Interface Control Officer: HALLEY HERNANDEZ ([id number])[facility])[address] [place] [address] Glucose [Mass/Vol] 90 mg/dL Normal 70-100 [facility] Comment on above: Performed By: #### Mustapha KAISER, [id number], LAB17 ####Interface Control Officer: HALLEY HERNANDEZ ([id number])[facility])[address] [place] [address] Potassium [Moles/Vol] 4.0 mmol/L Normal 3.5-5.1 [facility] Comment on above: Performed By: #### L AB103, VYR147, LAB17 ####Interface Control Officer: HALLEY HERNANDEZ ([id number])[facility] ([facility])[address] [place] [address] Protein [Mass/Vol] 6.4 g/dL Normal 6.3-8.2 [facility] Comment on above: Performed By: #### L AB103, MIZ108, LAB17 ####Interface Control Officer: HALLEY HERNANDEZ ([id number])[facility] ([facility])[address] [place] [address] Sodium [Moles/Vol] 138 mmol/L Normal 135-145 [facility] Comment on above: Performed By: #### Mustapha AB103, [id number], LAB17 ####Interface Control Officer: HALLEY HERNANDEZ ([id number])[facility])[address] [place] [address] Urea nitrogen [Mass/Vol] 7 mg/dL Normal 7-17 [facility] Comment on above: Performed By: #### L AB103, [id number], LAB17 ####Interface Control Officer: HALLEY HERNANDEZ ([id number])[facility] ([facility])[address] [place] [address] Comprehensive metabolic 1998 panelon 09-10-2023 Albumin [Mass/Vol] 2.8 g/dL Low 3.5 - 5.0 g/dL [facility] ALP [Catalytic activity/Vol] 146 U/L High 38 - 126 U/L [facility] ALT [Catalytic activity/Vol] 54 U/L High 0 - 34 U/L [facility] Anion gap [Moles/Vol] 4 mmol/L 3 - 13 mmol/L [facility] AST [Catalytic activity/Vol] 103 U/L High 15 - 46 U/L [facility] Bilirubin [Mass/Vol] 2.5 mg/dL High 0.2 - 1 .3 mg/dL [facility] Calcium [Mass/Vol] 8.6 mg/dL 8.4 - 10. 4 mg/dL [facility] Chloride [Moles/Vol] 113 mmol/L High 98 - 10 7 mmol/L [facility] CO2 [Moles/Vol] 21 mmol/L Low 22 - 30 mmol/L [facility] Creatinine [Mass/Vol] 0.81 mg/dL 0.52 - 1.04 mg/dL [facility] GFR/1.73 sq M.predicted MDRD (S/P/Bld) [Vol rate/Area] 89.1 mL/min/{1.73_m2} - PINF [facility] Comment on above: Calculation based on the Chronic Kidney Disease Epidemiology Collaboration (CKD-EPI) equation refit without adjustment for race Glucose [Mass/Vol] 90 mg/dL 70 - 100 mg/dL [facility] Interpretation and review of laboratory results Abnormal [facility] Potassium [Moles/Vol] 4.0 mmol/L 3.5 - 5.1 mmol/L [facility] Protein [Mass/Vol] 6.4 g/dL 6.3 - 8.2 g/dL [facility] Sodium [Moles/Vol] 138 mmol/L 135 - 145 mmol/L [facility] Urea nitrogen [Mass/Vol] 7 mg/dL 7 - 17 mg/dL [facility] ED Nursing Noteon 09-10-2023 ED Nursing Note Report given to 7W ambreen cao this time. Transport en route. Laura Antony RN 09/10/23 0501 [facility] ED Nursing Note They are here now to transport the patient to [facility] 09/10/23 0447 Normal [facility] ED Nursing Note [facility] ET A 0430 RN will call report in a few :) [facility] 09/10/23 0432 [facility] Guidance for paracentesis of Peritoneumon 09-10-2023 Trace ascites, not amenable to ultrasound-guided paracentesis. Paracentesis not performed. Report Dictated on Electronically Signed By: Lynn Edwards MD Electronically Signed Date/Time: 09/10/2023 8:54 AM [facility] Patient Name: CAROLINA HIGHTOWER : 1975 [...] of fluid amenable to ultrasound guided paracentesis. [facility] Lynn Edwards MD - 09/10/2023 Patient Name: [...] Electronically Signed Date/Time: 09/10/2023 8:54 AM EST [facility] Radiology Study observation (narrative) [facility] Guidance for paracentesis of PeritoneumOrdered By: Lynn Edwards on 09-10-2023 [facility] Work Phone: IRON AND TIBCon 09-10-2023 IRON BINDING CAPACITY 376 ug/dL Normal 261-497 [facility] Comment on above: Performed By: #### L AB103, [id number], LAB17 ####Interface Control Officer: HALLEY HERNANDEZ ([id number])[facility] ([address] IRON SATURATION 13 % Low 15-50 [facility] Comment on above: Performed By: #### L AB103, IPS805, LAB17 ####Interface Control Officer: HALLEY HERNANDEZ ([id number])[facility] ([facility])[address] [place] [address] IRON, TOTAL 48 ug/dL Normal 37-170 [facility] Comment on above: Performed By: #### L AB103, [id number], LAB17 ####Interface Control Officer: HALLEY HERNANDEZ ([id number])[facility] ([facility])[address] [place] [address] Iron and Iron binding capaci ty panelon 09-10-2023 Interpretation and review of laboratory results Abnormal [facility] Iron [Mass/Vol] 48 ug/dL 37 - 170 ug/dL [facility] Iron binding capacity [Mass/Vol] 376 ug/dL 261 - 497 ug/dL [facility] Iron saturation [Mass fraction] 13 % Low 15 - 50 % [facility] Laboratory - Chemistry and C hemistry - challengeon 09-10-2023 Magnesium [Mass/Vol] 1.7 mg/dL 1.6 - 2 .3 mg/dL [facility] Ammonia (P) [Moles/Vol] 78 umol/L High 9 - 30 umol/L [facility] Troponin I.cardiac [Mass/Vol] ng/mL NINF - 0.034 ng/mL [facility] Laboratory - Coagulationon 1 11-11-2022 aPTT Coag (PPP) [Time] 40.2 s High 20.0 - 30.5 s [facility] INR Coag (PPP) [Relative time] 1.7 {INR} High 0.9 - 1.1 [facility] Comment on above: Recommended Anticoag ulant [...] 17.0 s High 9.0 - 12.[address] [facility] MAGNESIUMon 09-10-2023 Magnesium [Mass/Vol] 1.7 mg/dL Normal 1.6-2.3 [facility] Comment on above: Performed By: #### L AB103, [id number], LAB17 ####Interface Control Officer: HALLEY HERNANDEZ ([id number])[facility])[address] [place] [address] Magnesium [Mass/Vol]on 09-10 Interpretation and review of laboratory results Normal [facility] No Panel Informationon 09-10 Interpretation and review of laboratory results Abnormal [facility] Interpretation and review of laboratory results Abnormal [facility] PROTIME AND APTTon aPTT Coag (Bld) [Time] 40.2 s High 20.0-30.5 [facility] Comment on above: Performed By: #### L [id number] ####Interface Control Officer: HALLEY HERNANDEZ ([id number])[facility] ([facility])[address] [place] [address] INR Coag (PPP) [Relative time] 1.7 {INR} High 0.9-1.1 [facility] Comment on above: Result Comment: Giorgio [...] prevent Myocardial Infarction Performed By: #### L [id number] ####Interface Control Officer: HALLEY HERNANDEZ ([id number])[facility] ([facility])[address] [place] [address] PT Coag (PPP) [Time] 17.0 s High 9.0-12.0 [facility] Comment on above: Performed By: #### L [id number] ####Interface Control Officer: HALLEY [id number])[facility] ([facility])[address] [place] [address] Progress Noteon 09-10-2023 Progress Note Patient seen, [...] We will continue to follow closely. Normal [facility] TROPONIN Ion 09-10-2023 Troponin I.cardiac [Mass/Vol] ng/mL Normal <0.034 [facility] Comment on above: Result Comment: KIKE Cohen COMMENTS: Patients with high levels of Biotin oral intake (ie >5 mg/day) may have falsely decreased Troponin levels. Performed By: #### L [id number] #### Interface Control Officer: JAVID [facility] ([id number]) [facility] ([facility]) [address] [place] [address] Troponin I.cardiac [Mass/Vol] ng/mL Normal <0.034 [facility] Comment on above: Result Comment: KKIE Cohen COMMENTS: Patients with high levels of Biotin oral intake (ie >5 mg/day) may have falsely decreased Troponin levels. Performed By: #### L [id number] ####Interface Control Officer: JAVID [facility] ([id number])[facility] ([facility])[address] [place] [address] Troponin I.cardiac [Mass/Vol ]on 09-10-2023 Interpretation and review of laboratory results Normal [facility] Patients with high levels of Biotin oral intake (ie >5 mg/day) may have falsely decreased Troponin levels. [facility] [place] GUIDED ABDOMINAL PARACENT ESISon 09-10-2023 US [...] Signed Date/Time: 09/10/2023 8:54 AM EST Normal [facility] AMMONIAon 09-09-2023 Ammonia (P) [Moles/Vol] 106 umol/L High 9-30 [facility] Comment on above: Performed By: #### L AB47 ####Interface Control Officer: JAVID LUTHER ([id number])[facility] ([facility])[address] [place] [address] BASIC METABOLIC PANELon 08-26 Anion gap [Moles/Vol] 8 mmol/L Normal 3-13 [facility] Comment on above: Performed By: #### L AB15, [id number], LAB20, LAB99 ####Interface Control Officer: JAVID LUTHER ([id number])[facility] ([facility])[address] [place] [address] Calcium [Mass/Vol] 8.7 mg/dL Normal 8.4-10.4 [facility] Comment on above: Performed By: #### L AB15, [id number], LAB20, LAB99 ####Interface Control Officer: JAVID LUTHER ([id number])[facility] ([facility])[address] Chloride [Moles/Vol] 109 mmol/L High 98-107 [facility] Comment on above: Performed By: #### L AB15, [id number], LAB20, LAB99 ####Interface Control Officer: JAVID LUTHER ([id number])[facility] ([facility])[address] CO2 [Moles/Vol] 19 mmol/L Low 22-30 [facility] Comment on above: Performed By: #### L AB15, [id number], LAB20, LAB99 ####Interface Control Officer: JAVID LUTHER ([id number])[facility]ITAL[facility] HUANGRUSTTimothy ([facility])[address] Creatinine [Mass/Vol] 0.73 mg/dL Normal 0.52-1.04 [facility] Comment on above: Performed By: #### L AB15, [id number], LAB20, LAB99 ####Interface Control Officer: JAVID LUTHER ([id number])[facility] ([facility])[address] GLOMERULAR FILTRATION RATE ML/MIN/1.73 SQ M.PREDICTED >90.0 Normal >60.0 [facility] Comment on above: Result Comment: Calc ulation based on the Chronic Kidney Disease Epidemiology Collaboration (CKD-EPI) equation refit without adjustment for race ORDER COMMENTS: CHEMISTRY SPECIMEN SLIGHTLY HEMOLYZED; INTERPRET WITH CAUTION! Performed By: #### L AB15, [id number], LAB20, LAB99 ####Interface Control Officer: JAVID LUTHER ([id number])[facility]OSPITALAmbreen ADAH ([facility])[address] [place] [address] [place] Glucose [Mass/Vol] 139 mg/dL High 70-100 [facility] Comment on above: Performed By: #### L AB15, [id number], LAB20, LAB99 ####Interface Control Officer: JAVID LUTHER ([id number])[facility]ITALAmb[facility] ADA[facility] ([facility])[address] [place] [address] [place] Potassium [Moles/Vol] 4.3 mmol/L Normal 3.5-5.1 [facility] Comment on above: Performed By: #### L AB15, [id number], LAB20, LAB99 ####Interface Control Officer: JAVID LUTHER ([id number])[facility] ([facility])[address] [place] [address] [place] Sodium [Moles/Vol] 136 mmol/L Normal 135-145 [facility] Comment on above: Performed By: #### L AB15, [id number], LAB20, LAB99 ####Interface Control Officer: JAVID ASHKAN ([id number])[facility] ([facility])[address] Urea nitrogen [Mass/Vol] 7 mg/dL Normal 7-17 [facility] Comment on above: Performed By: #### L AB15, [id number], LAB20, LAB99 ####Interface Control Officer: JAVDI ASHKAN ([id number])[facility] ([facility])[address] Basic metabolic 1998 panelon 09-09-2023 Anion gap [Moles/Vol] 8 mmol/L 3 - 13 mmol/L [facility] Calcium [Mass/Vol] 8.7 mg/dL 8.4 - 10. 4 mg/dL [facility] Chloride [Moles/Vol] 109 mmol/L High 98 - 10 7 mmol/L [facility] CO2 [Moles/Vol] 19 mmol/L Low 22 - 30 mmol/L [facility] Creatinine [Mass/Vol] 0.73 mg/dL 0.52 - 1.04 mg/dL [facility] GFR/1.73 sq M.predicted MDRD (S/P/Bld) [Vol rate/Area] - PINF [facility] Comment on above: Calculation based on the Chronic Kidney Disease Epidemiology Collaboration (CKD-EPI) equation refit without adjustment for race Glucose [Mass/Vol] 139 mg/dL High 70 - 100 mg/dL [facility] Potassium [Moles/Vol] 4.3 mmol/L 3.5 - 5.1 mmol/L [facility] Sodium [Moles/Vol] 136 mmol/L 135 - 145 mmol/L [facility] Urea nitrogen [Mass/Vol] 7 mg/dL 7 - 17 mg/dL [facility] CBC W Auto Differential pane l (Bld)Ordered By: Saida York on 09-09-2023 Erythrocyte distribution width (RBC) [Ratio] 21.6 % High 11.5 - 14.5 % [facility] Hematocrit (Bld) [Volume fraction] 32.4 % Low 35.0 - 47.0 % [facility] Hemoglobin (Bld) [Mass/Vol] 10.4 g/dL Low 11.7 - 16.0 g/dL [facility] Interpretation and review of laboratory results Abnormal [facility] MCH (RBC) [Entitic mass] 22.8 pg Low 26.0 - 34.0 pg [facility] MCHC (RBC) [Mass/Vol] 32.0 % 32.0 - 36.0 % [facility] MCV (RBC) [Entitic vol] 71.1 fL Low 80.0 - 98.0 fL [facility] Nucleated RBC/100 WBC (Bld) [Ratio] 0.2 % [facility] Platelet mean volume (Bld) [Entitic vol] 9.2 fL 7.4 - 12.4 fL [facility] Platelets (Bld) [#/Vol] 95 10*3/uL Low 140 - 440 10*3/uL [facility] RBC (Bld) [#/Vol] 4.56 10*6/uL 3.8 - 5.20 10*6/uL [facility] WBC (Bld) [#/Vol] 9.4 10*3/uL 3.6 - 10.7 10*3/uL [facility] CBC WITH AUTO DIFFERENTIALon 09-09-2023 Erythrocyte distribution width (RBC) [Ratio] 21.6 % High 11.5-14.5 [facility] Comment on above: Performed By: #### L [id number], [id number] ####Interface Control Officer: JAVID LUTHER ([id number])[facility] ([facility])[address] [place] [address] ERYTHROCYTE MEAN CORPUSCULAR HEMOGLOBIN CONCENTRATION (G/DL) BY AUTOMATED 32.0 % Normal 32.0-36.0 [facility] Comment on above: Performed By: #### L [id number], [id number] ####Interface Control Officer: JAVID LUTHER ([id number])[facility] ([facility])[address] [place] [address] Hematocrit (Bld) [Volume fraction] 32.4 % Low 35.0-47.0 [facility] Comment on above: Performed By: #### L [id number], [id number] ####Interface Control Officer: JAVID LUTHER ([id number])[facility] [place] ([facility])[address] Hemoglobin (Bld) [Mass/Vol] 10.4 g/dL Low 11.7-16.0 [facility] Comment on above: Performed By: #### L [id number], [id number] ####Interface Control Officer: JAVID LUTHER ([id number])[facility] [place] ([facility])[address] MCH (RBC) [Entitic mass] 22.8 pg Low 26.0-34.0 [facility] Comment on above: Performed By: #### L [id number], [id number] ####Interface Control Officer: JAVID LUTHER ([id number])[facility] [place] ([facility])[address] MCV (RBC) [Entitic vol] 71.1 fL Low 80.0-98.0 [facility] Comment on above: Performed By: #### L AQ6884, [id number] ####Interface Control Officer: JAVID LUTHER ([id number])[facility] [place] ([facility])[address] NRBC (PER 100 WBCS) BY AUTOMATED COUNT 0.2 /100 WBCs Normal 0.0-2.0 [facility] Comment on above: Performed By: #### L [id number], IHM0053 ####Interface Control Officer: JAVID LUTHER ([id number])[facility] [place] ([facility])[address] Platelet mean volume (Bld) [Entitic vol] 9.2 fL Normal 7.4-12.4 [facility] Comment on above: Performed By: #### L [id number], [id number] ####Interface Control Officer: JAVID LUTHER ([id number])[facility] [place] ([facility])[address] Platelets (Bld) [#/Vol] 95 10*3/uL Low 140-440 [facility] Comment on above: Performed By: #### L [id number], [id number] ####Interface Control Officer: JAVID LUTHER ([id number])[facility] [place] ([facility])[address] RBC (Bld) [#/Vol] 4.56 10*6/uL Normal 3.8-5.20 [facility] Comment on above: Performed By: #### L [id number], CJV7869 ####Interface Control Officer: JAVID LUTHER ([id number])[facility] [place] ([facility])[address] WBC (Bld) [#/Vol] 9.4 10*3/uL Normal 3.6-10.7 [facility] Comment on above: Performed By: #### L [id number], [id number] ####Interface Control Officer: JAVID LUTHER ([id number])[facility] [place] ([facility])[address] COMPLETE URINALYSISon 2022 BACTERIA (#/HPF) IN URINE Moderate Abnormal Negative [facility] Comment on above: Performed By: #### L [id number] #### Interface Control Officer: JAVID LUTHER ([id number]) [facility] [place] ([facility]) [address] BILIRUBIN, TOTAL PRESENCE IN URINE Negative Normal Negative [facility] Comment on above: Performed By: #### L [id number] #### Interface Control Officer: JAVID LUTHER ([id number]) [facility] [place] ([facility]) [address] Clarity (U) Clear Normal Clear [facility] Comment on above: Performed By: #### L [id number] #### Interface Control Officer: JAVID LUTHER ([id number]) [facility] [place] ([facility]) [address] Color (U) Yellow Normal Lt. Yellow [facility] Comment on above: Performed By: #### L [id number] #### Interface Control Officer: JAVID VASQUEZRITA ([id number]) [facility] ([facility]) [address] GLUCOSE (MG/DL) IN URINE Normal Normal Normal (<70) [facility] Comment on above: Performed By: #### L [id number] #### Interface Control Officer: JAVID LUTHER ([id number]) [facility] ([facility]) [address] HEMOGLOBIN PRESENCE IN URINE 0.2 mg/dL Abnormal Negative [facility] Comment on above: Performed By: #### L [id number] #### Interface Control Officer: JAVID VASQUEZRITA ([id number]) [facility] ([facility] [address] Ketones Ql (U) Negative Normal Negative [facility] Comment on above: Performed By: #### L [id number] #### Interface Control Officer: JAVID LUTHER ([id number]) [facility] ([facility]) [address] LEUKOCYTE ESTERASE PRESENCE IN URINE BY TEST STRIP Negative Normal Negative [facility] Comment on above: Performed By: #### L [id number] #### Interface Control Officer: JAVID VASQUEZRITA ([id number]) [facility] ([facility]) [address] [place] [address] [place] MUCUS (#/LPF) IN URINE SEDIMENT Few Normal Negative [facility] Comment on above: Performed By: #### L [id number] #### Interface Control Officer: JAVID VASQUEZRITA ([id number]) [facility] ([facility]) [address] [place] [address] [place] NITRITE PRESENCE IN URINE Negative Normal Negative [facility] Comment on above: Performed By: #### L [id number] #### Interface Control Officer: JAVID LUTHER ([id number]) [facility] ([facility]) [address] [place] [address] [place] NON-SQUAMOUS EPITHELIAL (#/HPF) IN URINE 0-2 Abnormal Negative [facility] [facility] Comment on above: Performed By: #### L [id number] #### Interface Control Officer: JAVID LUTHER ([id number]) [facility] ([facility]) [address] pH (U) 6.5 [pH] Normal 5.0-8.0 [facility] Comment on above: Performed By: #### L [id number] #### Interface Control Officer: JAVID LUTHER ([id number]) [facility] ([facility]) [address] Protein (U) [Mass/Vol] Negative Normal Negative [facility] Comment on above: Performed By: #### L [id number] #### Interface Control Officer: JAVID LUTHER ([id number]) [facility] [address] [place] [address] [place] RBC (#/HPF) IN URINE SEDIMENT 3-5 Abnormal 0-2 [facility] Comment on above: Performed By: #### L [id number] #### Interface Control Officer: JAVID LUTHER ([id number]) [facility] ([facility] [address] [place] [address] Specific gravity (U) [Rel density] 1.010 Normal 1.005-1.030 [facility] Comment on above: Performed By: #### L [id number] #### Interface Control Officer: JAVID LUTHER ([id number]) [facility] [address] SQUAMOUS EPITHELIAL CELLS (#/HPF) IN URINE SEDIMENT 6-10 Abnormal 3-5 [facility] Comment on above: Performed By: #### L [id number] #### Interface Control Officer: JAVID LUTHER ([id number]) [facility] [address] UROBILINOGEN (MG/DL) IN URINE Normal Normal Normal (0-1) [facility] Comment on above: Performed By: #### L [id number] #### Interface Control Officer: JAVID ASHKAN ([id number]) [facility] ([facility]) [address] WBC (LEUKOCYTE) (#/HPF) IN URINE SEDIMENT 0-2 Normal 0-5 [facility] Comment on above: Performed By: #### L [id number] #### Interface Control Officer: JAVID LUTHER ([id number]) [facility] ([facility]) [address] COVID-19, Flu A/B, and RSV C omboon 09-09-2023 Interpretation and review of laboratory results Normal [facility] CT ABDOMEN PELVIS W CONTRAST on 09-09-2023 [...] EST Abdominal pain, hx of cirrhosis Normal [facility] CT Abdomen and Pelvis W cont [...] MD Electronically Signed Date/Time: 09/09/2023 8:28 PM [facility] Patient Name: CAROLINA HIGHTOWER : 1975 [id number] Exam Date/Time: 09/09/2023 20:11 Procedure: CT ABDOMEN [...] osseous structures. No suspicious osseous lesion. [facility] Scot Shah MD - 09/09/2023 Patient Name: CAROLINA HIGHTOWER : 1975 [facility]#: [id number] Exam Date/Time: 09/09/2023 20:11 Procedure: CT ABDOMEN [...] Electronically Signed Date/Time: 09/09/2023 8:28 PM EST [facility] Radiology Study observation (narrative) [facility] CT Abdomen and Pelvis W cont rast IVOrdered By: Scot Shah on 09-09-2023 [facility] Work Phone: DRUGS OF ABUSEon 09-09-2023 AMPHETAMINE SCREEN Negative Normal [facility] Comment on above: Performed By: #### L [id number] ####Interface Control Officer: JAVID LUTHER ([id number])[facility] ([facility])[address] BARBITURATES SCREEN Negative Normal [facility] Comment on above: Performed By: #### L [id number] ####Interface Control Officer: JAVID LUTHER ([id number])[facility] ([facility])[address] BENZODIAZEPINE SCREEN Negative Normal [facility] Comment on above: Performed By: #### L [id number] ####Interface Control Officer: JAVID MILLERRONALD ([id number])[facility] ([facility])[address] COCAINE METAB. SCREEN Negative Normal [facility] Comment on above: Performed By: #### L [id number] ####Interface Control Officer: JAVID VASQUEZRITA ([id number])[facility] ([facility])[address] METHADONE SCREEN Negative Normal [facility] Comment on above: Performed By: #### L [id number] ####Interface Control Officer: JAVID MILLERRONALD ([id number])[facility] ([facility])[address] OPIATES SCREEN Negative Normal [facility] Comment on above: Performed By: #### L [id number] ####Interface Control Officer: JAVID VASQUEZRITA ([id number])[facility] ([facility])[address] OXYCODONE SCREEN Negative Normal [facility] Comment on above: Performed By: #### L [id number] ####Interface Control Officer: JAVID LUTHER ([id number])[facility] ([facility])[address] PHENCYCLIDINE SCREEN Negative Normal [facility] Comment on above: Result Comment: KIKE Cohen COMMENTS: The expected value for all of [...] under separate order. Performed By: #### L [id number] ####Interface Control Officer: JAVID LUTHER ([id number])[facility] ([facility])[address] ECG 12-LEADon 09-09-2023 ECG 12-LEAD IMPRESSION: Sinus rhythm Low voltage, precordial leads Borderline prolonged QT interval Electronically Signed On 09-09-2023 19:59:30 EST by Lenny Macdonald Normal [facility] ED Nursing Noteon 09-09-2023 ED Nursing Note Pt c/o abdominal arturo n that began this afternoon, states that she has hx of cirrhosis. Family states she seems off. Normal [facility] ED Provider Noteon ED Provider Note Emergency Department Encounter [facility] ED Patient: Carolina Hightower : 1975 Date of Evaluation: 09/09/2023 ED Supervising Physician: Lenny Macdonald MD I independently examined and evaluated Carolina Hightower. This will serve as my Supervisory note as the yard brakeman of record and shared attestation. I did [...] inpatient medicine team they recommend transfer to [facility] as they do not have IRP abilities over the weekend for paracentesis if required. Recommending bowel rest will be admitted Diagnoses as of 09/12/23 9956 Small bowel obstruction (HCC) Diagnostic tests considered [...] for clarification.) Lenny Macdonald MD Acute Care [facility] Lenny Macdonald MD 09/12/23 1500 Normal [facility] ED Provider Note EMERGENCY DEPARTMENT ENCOUNTER [...] is bedside and states that the patient "seems off". When this was further questioning patient's family [...] Abnormal BILI (more content not included)... Normal [facility] HCG QUALITATIVE URINEon 08-26 Beta HCG ( test) Ql (U) Negative Normal Negative [facility] Comment on above: Result Comment: Plea se note: Very dilute urine specimens, as indicated by a low specific gravity, may not contain inside account representative levels of hCG. If is still suspected, a first morning urine specimen should be collected 48 hours later and tested. ORDER COMMENTS: is the most common reason for HCG in urine, although choriocarcinoma, hydatidiform mole, and certain nontrophoblastic malignancies also result in detectable urinary HCG levels. Sensitivity = 20mIU/mL. Performed By: #### L [id number] #### Interface Control Officer: JAVID LUTHER ([id number]) [facility] ([facility]) [address] [place] [address] HEPATIC FUNCTION PANELon Albumin [Mass/Vol] 3.2 g/dL Low 3.5-5.0 [facility] Comment on above: Performed By: #### L [id number], [id number], LAB20, LAB99 ####Interface Control Officer: JAVID LUTHER ([id number])[facility] ([facility])[address] [place] [address] ALP [Catalytic activity/Vol] 149 U/L High 38-126 [facility] Comment on above: Performed By: #### L AB15, [id number], LAB20, LAB99 ####Interface Control Officer: JAVID LUTHER ([id number])[facility] ([facility] [place] [address] ALT [Catalytic activity/Vol] 59 U/L High 0-34 [facility] Comment on above: Performed By: #### L AB15, [id number], LAB20, LAB99 ####Interface Control Officer: JAVID LUTHER ([id number])[facility] ([facility])[address] [place] [address] AST [Catalytic activity/Vol] 124 U/L High 15-46 [facility] Comment on above: Performed By: #### L AB15, [id number], LAB20, LAB99 ####Interface Control Officer: JAVID LUTHER ([id number])[facility] ([facility])[address] [place] [address] Bilirubin [Mass/Vol] 2.7 mg/dL High 0.2-1.3 [facility] Comment on above: Performed By: #### L AB15, [id number], LAB20, LAB99 ####Interface Control Officer: JAVID LUTHER ([id number])[facility] ([facility])[address] [place] [address] Bilirubin.indirect [Mass/Vol] 0.0 mg/dL Normal 0.0-0.3 [facility] Comment on above: Performed By: #### L AB15, [id number], LAB20, LAB99 ####Interface Control Officer: JAVID LUTHER ([id number])[facility] ([facility])[address] [place] [address] Protein [Mass/Vol] 7.2 g/dL Normal 6.3-8.2 [facility] Comment on above: Result Comment: KIKE Cohen COMMENTS: CHEMISTRY SPECIMEN SLIGHTLY HEMOLYZED; INTERPRET WITH CAUTION! Performed By: #### L AB15, [id number], LAB20, LAB99 ####Interface Control Officer: JAVID LUTHER ([id number])[facility] ([facility])[address] [place] [address] Hepatic function 2000 panelo n 09-09-2023 Albumin [Mass/Vol] 3.2 g/dL Low 3.5 - 5.0 g/dL [facility] ALP [Catalytic activity/Vol] 149 U/L High 38 - 126 U/L [facility] ALT [Catalytic activity/Vol] 59 U/L High 0 - 34 U/L [facility] AST [Catalytic activity/Vol] 124 U/L High 15 - 46 U/L [facility] Bilirubin [Mass/Vol] 2.7 mg/dL High 0.2 - 1 .3 mg/dL [facility] Bilirubin.conjugated [Mass/Vol] 0.0 mg/dL 0.0 - 0.3 mg/dL [facility] Protein [Mass/Vol] 7.2 g/dL 6.3 - 8.2 g/dL [facility] LIPASEon 09-09-2023 Lipase [Catalytic activity/Vol] 188 U/L Normal 23-300 [facility] Comment on above: Performed By: #### L AB15, [id number], LAB20, LAB99 ####Interface Control Officer: JAVID LUTHER ([id number])[facility] ([facility])[address] [place] [address] Laboratory - Chemistry and C hemistry - challengeon 09-09-2023 Troponin I.cardiac [Mass/Vol] ng/mL NINF - 0.034 ng/mL [facility] Beta HCG ( test) Ql Negative Negative [facility] Comment on above: Please note: Very di lute urine specimens, as indicated by a low specific gravity, may not contain inside account representative levels of hCG. If is still suspected, a first morning urine specimen should be collected 48 hours later and tested. Beta HCG ( test) Ql (U) is the most common reason for HCG in urine, although choriocarcinoma, hydatidiform mole, and certain nontrophoblastic malignancies also result in detectable urinary HCG levels. Sensitivity = 20mIU/mL. [facility] Troponin I.cardiac [Mass/Vol] ng/mL NINF - 0.034 ng/mL [facility] Lipase [Catalytic activity/Vol] 188 U/L 23 - 300 U/L [facility] Ammonia (P) [Moles/Vol] 106 umol/L High 9 - 30 umol/L [facility] Laboratory - Microbiology an d Antimicrobial susceptibilityon 09-09-2023 FLUAV RNA PHYLLIS+probe Ql (Resp) Not detected Not Detected [facility] FLUBV RNA PHYLLIS+probe Ql (Resp) Not detected Not Detected [facility] RSV RNA PHYLLIS+probe Ql (Resp) Not detected Not Detected [facility] SARS-CoV-2 (COVID-19) RNA PHYLLIS+probe Ql (Resp) Not detected Not Detected [facility] SARS-CoV-2 (COVID-19) RNA PHYLLIS+probe Ql (Unsp spec) Methodology: real-time, RT-PCR The SARS-CoV-2, Flu A/B, and RSV Combo assay is intended for in vitro diagnostic use under the FDA Emergency Use Authorization (EUA). This test has not been FDA cleared or approved. In compliance with this authorization, please visit www.fda.gov/media/68214 5/download or www.fda.gov/media/24196 6/download to access the applicable information sheets. [facility] Lipase [Catalytic activity/V ol]on 09-09-2023 Interpretation and review of laboratory results Normal [facility] MANUAL DIFFERENTIALon 2022 ANISOCYTOSIS PRESENCE IN BLOOD BY LIGHT MICROSCOPY Moderate Abnormal (none) [facility] Comment on above: Performed By: #### L [id number], [id number] ####Interface Control Officer: JAVID LUTHER ([id number])[facility] ([facility])[address] [place] [address] [place] BASOPHILS (10*3/UL) IN BLOOD BY MANUAL COUNT 0.1 10*3/uL Normal 0.0-0.2 [facility] Comment on above: Performed By: #### L [id number], [id number] ####Interface Control Officer: JAVID LUTHER ([id number])[facility] ([facility])[address] [place] [address] BASOPHILS TOTAL PER COUNTED LEUKOCYTES BY MANUAL COUNT 1 Normal [facility] Comment on above: Performed By: #### L [id number], [id number] ####Interface Control Officer: JAVID LUTHER ([id number])[facility] ([facility])[address] [place] [address] [place] BASOPHILS/100 LEUKOCYTES IN BLOOD BY MANUAL COUNT 1 % Normal 0-2 [facility] Comment on above: Performed By: #### L [id number], [id number] ####Interface Control Officer: JAVID LUTHER ([id number])[facility] ([facility])[address] [place] [address] CELLS COUNTED TOTAL (#) IN BLOOD 100 Normal [facility] Comment on above: Performed By: #### L [id number], [id number] ####Interface Control Officer: JAVID LUTHER ([id number])[facility] [place] ([facility])[address] DIFFERENTIAL METHOD Automated differenti al reported after manual slide review Normal [facility] Comment on above: Performed By: #### L [id number], [id number] ####Interface Control Officer: JAVID LUTHER ([id number])[facility] [place] ([facility])[address] [place] [address] [place] EOSINOPHILS (10*3/UL) IN BLOOD BY MANUAL COUNT 0.4 10*3/uL Normal 0.0-0.5 [facility] Comment on above: Performed By: #### L [id number], [id number] ####Interface Control Officer: JAVID LUTHER ([id number])[facility] [place] ([facility])[address] EOSINOPHILS TOTAL PER COUNTED LEUKOCYTES BY MANUAL COUNT 4 High 0-1 [facility] Comment on above: Performed By: #### L [id number], [id number] ####Interface Control Officer: JAVID LUTHER ([id number])[facility] [place] ([facility])[address] [place] [address] [place] EOSINOPHILS/100 LEUKOCYTES IN BLOOD BY MANUAL COUNT 4 % Normal 1-6 [facility] Comment on above: Performed By: #### L [id number], [id number] ####Interface Control Officer: JAVID LUTHER ([id number])[facility] [place] ([facility])[address] [place] [address] [place] HYPOCHROMIA (PRESENCE) IN BLOOD BY LIGHT MICROSCOPY Slight Abnormal (none) [facility] Comment on above: Performed By: #### L [id number], [id number] ####Interface Control Officer: JAVID LUTHER ([id number])[facility] [place] ([facility])[address] [place] [address] [place] LEUKOCYTE MORPHOLOGY FINDING IN BLOOD Normal Normal [facility] Comment on above: Performed By: #### L [id number], [id number] ####Interface Control Officer: JAVID LUTHER ([id number])[facility] ([facility])[address] [place] [address] [place] LEUKOCYTES (10*3/UL) NUCLEATED ERYTHROCYTE ADJUST 9.4 10*3/uL Normal 3.6-10.7 [facility] Comment on above: Performed By: #### L [id number], [id number] ####Interface Control Officer: JAVID CHRISTINARITA ([id number])[facility] [place] ([facility])[address] [place] [address] [place] LYMPHOCYTES (10*3/UL) IN BLOOD BY MANUAL COUNT 2.0 10*3/uL Normal 1.0-4.3 [facility] Comment on above: Performed By: #### L [id number], [id number] ####Interface Control Officer: JAVID LUTHER ([id number])[facility] [place] ([facility])[address] LYMPHOCYTES TOTAL PER COUNTED LEUKOCYTES BY MANUAL COUNT 21 Normal [facility] Comment on above: Performed By: #### L [id number], [id number] ####Interface Control Officer: JAVID LUTHER ([id number])[facility] [place] ([facility])[address] [place] [address] [place] LYMPHOCYTES/100 LEUKOCYTES IN BLOOD BY MANUAL COUNT 21 % Normal 20-40 [facility] Comment on above: Performed By: #### L [id number], [id number] ####Interface Control Officer: JAVID LUTHER ([id number])[facility] [place] ([facility])[address] [place] [address] [place] MICROCYTES (PRESENCE) IN BLOOD BY LIGHT MICROSCOPY Slight Abnormal (none) [facility] Comment on above: Performed By: #### L [id number], [id number] ####Interface Control Officer: JVAID LUTHER ([id number])[facility] [place] ([facility])[address] [place] [address] [place] MONOCYTES (10*3/UL) IN BLOOD BY MANUAL COUNT 0.7 10*3/uL Normal 0.0-0.8 [facility] Comment on above: Performed By: #### L [id number], [id number] ####Interface Control Officer: JAVID LUTHER ([id number])[facility] [place] ([facility])[address] MONOCYTES TOTAL PER COUNTED LEUKOCYTES BY MANUAL COUNT 7 Normal [facility] Comment on above: Performed By: #### L [id number], [id number] ####Interface Control Officer: JAVID LUTHER ([id number])[facility] [place] ([facility])[address] [place] [address] [place] MONOCYTES/100 LEUKOCYTES IN BLOOD BY MANUAL COUNT 7 % Normal 2-10 [facility] Comment on above: Performed By: #### L [id number], [id number] ####Interface Control Officer: JAVID LUTHER ([id number])[facility] [place] ([facility])[address] NEUTROPHILS (SEGS+BANDS) (10*3/UL) BY MANUAL COUNT 6.3 10*3/uL Normal 1.8-7.0 [facility] Comment on above: Performed By: #### L [id number], [id number] ####Interface Control Officer: JAVID LUTHER ([id number])[facility] [place] ([facility])[address] [place] [address] [place] NEUTROPHILS TOTAL PER COUNTED LEUKOCYTES BY MANUAL COUNT 67 Normal [facility] Comment on above: Performed By: #### L [id number], [id number] ####Interface Control Officer: JAVID LUTHER ([id number])[facility] [place] ([facility])[address] OVALOCYTES PRESENCE IN BLOOD BY LIGHT MICROSCOPY Slight Abnormal (none) [facility] Comment on above: Performed By: #### L [id number], [id number] ####Interface Control Officer: JAVID LUTHER ([id number])[facility] [place] ([facility])[address] [place] [address] [place] PLATELET MORPHOLOGY IN BLOOD Normal Normal [facility] Comment on above: Performed By: #### L [id number], [id number] ####Interface Control Officer: JAVID LUTHER ([id number])[facility] ([facility])[address] SEGEMENTED NEUTROPHILS/100 LEUKOCYTES BY MANUAL COUNT 67 % Normal 40-80 [facility] Comment on above: Performed By: #### L [id number], [id number] ####Interface Control Officer: JAVID LUTHER ([id number])[facility] ([facility])[address] Manual differential performe d Ql (Bld)Ordered By: Conner Cardenas on 09-09-2023 Anisocytosis Ql (Bld) Moderate Abnormal (none) [facility] Basophils (Bld) [#/Vol] 0.1 10*3/uL 0.0 - 0.2 10*3/uL [facility] [employer] Basophils Manual 1 [facility] [employer] Basophils/100 WBC (Bld) 1 % 0 - 2 % [facility] [employer] Cells Counted Total (Bld) [#] 100 {cells} [facility] [employer] Differential Method Automated differenti al reported after manual slide review [facility] Eosinophils (Bld) [#/Vol] 0.4 10*3/uL 0.0 - 0.5 10*3/uL [facility] [employer] Eosinophils Manual 4 High 0 - 1 [facility] Eosinophils/100 WBC (Bld) 4 % 1 - 6 % [facility] Hypochromia Ql (Bld) Slight Abnormal (none) [facility] Interpretation and review of laboratory results Abnormal [facility] Leukocyte morphology finding Nom (Bld) Normal [facility] Lymphocytes (Bld) [#/Vol] 2.0 10*3/uL 1.0 - 4.3 10*3/uL [facility] Lymphocytes Manual 21 [facility] Lymphocytes/100 WBC (Bld) 21 % 20 - 40 % [facility] Microcytes Ql (Bld) Slight Abnormal (none) [facility] Monocytes (Bld) [#/Vol] 0.7 10*3/uL 0.0 - 0.8 10*3/uL [facility] [employer] Monocytes Manual 7 [facility] [employer] Monocytes/100 WBC (Bld) 7 % 2 - 10 % [facility] Neutrophils (Bld) [#/Vol] 6.3 10*3/uL 1.8 - 7.0 10*3/uL [facility] Neutrophils Manual 67 [facility] Ovalocytes LM Ql (Bld) Slight Abnormal (none) [facility] Platelet morphology finding Nom (Bld) Normal [facility] Segmented neutrophils/100 WBC (Bld) 67 % 40 - 80 % [facility] WBC corrected for nucl RBC (Bld) [#/Vol] 9.4 10*3/uL 3.6 - 10.7 10*3/uL [facility] No Panel Informationon 09-09 [facility] P [place] 55 degrees [facility] [place] Interval 157 ms [facility] QRS [place] -7 degrees [facility] QRSD Interval 81 ms [facility] QT Interval 455 ms [facility] QTC Interval 501 ms [facility] T Wave [place] 28 degrees [facility] Sinus rhythm Low voltage, precordial leads Borderline prolonged QT interval Electronically Signed On 09-09-2023 19:59:30 EST by Lenny Macdonald CV Lenny Rendon MD - 09/09/2023 IMPRESSION: Sinus rhythm Low voltage, precordial leads Borderline prolonged QT interval Electronically Signed On 09-09-2023 19:59:30 EST by Lenny Macdonald [facility] Interpretation and review of laboratory results Abnormal [facility] CHEMISTRY SPECIMEN SLIGHTLY HEMOLYZED; INTERPRET WITH CAUTION! [facility] Interpretation and review of laboratory results Abnormal [facility] SARS-COV-2, FLU A/B, AND RSV COMBOon 09-09-2023 [...] In compliance with this authorization, please visit www.fda.gov/media/72695 5/download or www.fda.gov/media/02040 6/download to access the applicable information sheets. Normal [facility] Comment on above: Performed By: #### L [id number] #### Interface Control Officer: JAVID LUTHER ([id number]) [facility] ([facility]) [address] TROPONIN, WITH SERIAL REFLEX on 09-09-2023 Troponin I.cardiac [Mass/Vol] ng/mL Normal <0.034 [facility] Comment on above: Result Comment: KIKE Cohen COMMENTS: Patients with high levels of Biotin oral intake (ie >5 mg/day) may have falsely decreased Troponin levels. Performed By: #### L AB15, [id number], LAB20, LAB99 ####Interface Control Officer: JAVID VASQUEZRITA ([id number])[facility] ([facility])[address] Troponin I.cardiac [Mass/Vol ]on 09-09-2023 Interpretation and review of laboratory results Normal [facility] Patients with high levels of Biotin oral intake (ie >5 mg/day) may have falsely decreased Troponin levels. [facility] Interpretation and review of laboratory results Normal [facility] Patients with high levels of Biotin oral intake (ie >5 mg/day) may have falsely decreased Troponin levels. [facility] Urinalysis complete panel (U )on 09-09-2023 Bacteria LM.HPF (Urine sed) [#/Area] Moderate Abnormal Negative /HPF [facility] Bilirubin Ql (U) Negative Negative mg/dL [facility] Clarity (U) Clear Clear [facility] Color (U) Yellow Lt. Yellow [facility] Epithelial cells.squamous LM.HPF (Urine sed) [#/Area] 6-10 Abnormal [facility] Glucose Ql (U) Normal Normal (<70) mg/dL [facility] Hemoglobin Ql (U) 0.2 mg/dL Abnormal Negative [facility] Interpretation and review of laboratory results Abnormal [facility] Ketones (U) [Mass/Vol] Negative Negative mg/d L [facility] Leukocyte esterase Test strip Ql (U) Negative Negative Joo/uL [facility] Mucus LM.HPF (Urine sed) [#/Area] Few Negative /LPF [facility] Nitrite Ql (U) Negative Negative [facility] Non-Squamous Epithalial Cells, Urine 0-2 Abnormal Negative /HPF [facility] pH (U) 6.5 [pH] 5.0 - 8.0 pH [facility] Protein (U) [Mass/Vol] Negative Negative mg/d L [facility] RBC LM.HPF (Urine sed) [#/Area] 3-5 Abnormal [facility] Specific gravity (U) [Rel density] 1.010 1.005 - 1.030 [facility] Urobilinogen (U) [Mass/Vol] Normal Normal (0-1) mg/dL [facility] WBC LM.HPF (Urine sed) [#/Area] 0-2 [facility] Vital signson 09-09-2023 Heart rate 73 /min bpm [facility] XR Chest Single viewon 09-09 1. No acute finding. Report Dictated on Electronically Signed By: James Will MD Electronically Signed Date/Time: 09/09/2023 6:48 PM [facility] Patient Name: CAROLINA HIGHTOWER : 1975 Exam Date/Time: 09/09/2023 18:44 Procedure: XR CHEST 1 VIEW Ordering Provider: HARRIS KASSIDY Reason For Exam: shortness of breath SINGLE FRONTAL VIEW OF THE CHEST CLINICAL INDICATION: shortness of breath TECHNIQUE: Single frontal view of the chest COMPARISON: None FINDINGS: Lungs show no significant consolidation. No pleural effusion or pneumothorax. No vascular congestion. Heart size normal. [facility] James Will MD - 09/09/2023 Patient Name: [...] Electronically Signed Date/Time: 09/09/2023 6:48 PM EST [facility] [employer] Radiology Study observation (narrative) [facility] XR Chest Single viewOrdered By: James Will on 09-09-2023 [facility] Work Phone: Absolute lymphocyte countOrd ered By: Darius Bobby on 08-22-2023 Lymphocytes Auto (Unsp spec) [#/Vol] 1.92 10*3/uL 0.83-4.51 [facility] Basophil percentageOrdered B y: Dariusharish Rosales on 08-22-2023 Ammonia (P) [Moles/Vol] 76.0 umol/L - [facility] Basophil percentage 76.0 umol/L -32 [place] Basophil percentage 124 mg/dL 74-106 [facility] Basophil percentage 6.7 g/dL 6.4-8.2 [facility] Basophil percentage 1.80 mg/dL 0.20-1.00 [facility] Basophil percentage 139 mmol/L 136-145 [facility] Basophil percentage 3.4 mmol/L 3.5-5.1 [facility] Basophil percentage 110 mmol/L 98-107 [facility] Basophils (Bld) [#/Vol] 6.5 10*3/uL 4.4-11.0 [facility] Basophils (Bld) [#/Vol] 3.6 10*3/uL 2.0-7.7 [facility] Basophils/100 WBC (Bld) 0.9 % 0-1 [facility] Basophils/100 WBC (Bld) 54.4 % 47-70 [facility] Basophils/100 WBC (Bld) 4.1 % 0-5 [facility] Bilirubin [Mass/Vol] 1.80 mg/dL 0.20-1.00 [place] Comment on above: For patients on eltr ombopag therapy, use of Dimension [place] TBIL is not recommended. Chloride [Moles/Vol] 110 mmol/L 98-107 [place] Eosinophils/100 WBC (Bld) 4.1 % 0-5 [facility] Glucose [Mass/Vol] 124 mg/dL 74-106 [facility] Comment on above: Fasting Glucose resu lt from 100 to 125 mg/dL suggests IMPAIRED HOMEOSTASIS per A.D.A. criteria. Neutrophils (Bld) [#/Vol] 3.6 10*3/uL 2.0-7.7 [facility] Neutrophils/100 WBC (Bld) 54.4 % 47-70 [facility] Potassium [Moles/Vol] 3.4 mmol/L 3.5-5.1 [facility] Protein [Mass/Vol] 6.7 g/dL 6.4-8.2 [facility] Sodium [Moles/Vol] 139 mmol/L 136-145 [facility] WBC (Bld) [#/Vol] 6.5 10*3/uL 4.4-11.0 [facility] Beta hCG serum qualOrdered B y: Darius Rosales on 08-22-2023 Beta HCG ( test) Ql Negative [facility] Blood erythrocytes count (nu mber/volume)Ordered By: Darius Rosales on 08-22-2023 RBC (Bld) [#/Vol] 4.46 10*6/uL 4.2-5.4 [facility] Blood hemoglobin measurement (mass/volume)Ordered By: Darius Rosales on 08-22-2023 Hemoglobin (Bld) [Mass/Vol] 10.2 g/dL 12.0-15.0 [facility] Blood lymphocytes/100 leukoc ytesOrdered By: Darius Rosales on 08-22-2023 Lymphocytes/100 WBC (Bld) 29.4 % 19-41 [facility] Blood monocytes/100 leukocyt esOrdered By: Darius Rosales on 08-22-2023 Monocytes/100 WBC (Bld) 11.0 % 0-10 [facility] Blood platelet adequacy dete ction by light microscopyOrdered By: Darius Rosales on 08-22-2023 Platelets LM Ql (Bld) MOD DEC ADEQ [facility] COVID-19 virus antigen assay Ordered By: Darius Rosales on 08-22-2023 SARS-CoV-2 (COVID-19) Ag IA.rapid Ql (Resp) [facility] SARS-CoV-2 (COVID-19) Ag IA.rapid Ql (Resp) [facility] Determination of erythrocyte mean corpuscular volume (MCV)Ordered By: Darius Rosales on 08-22-2023 MCV (RBC) [Entitic vol] 75.8 fL 81-99 [facility] Hematocrit Auto (Bld) [Volum e fraction]Ordered By: Darius Rosales on 08-22-2023 Hematocrit (Bld) [Volume fraction] 33.8 % 37-47 [facility] Laboratory - Chemistry and C hemistry - challengeOrdered By: Darius Rosales on 08-22-2023 ALP [Catalytic activity/Vol] 156 U/L 45-117 [facility] ALT [Catalytic activity/Vol] 66 U/L 13-56 [facility] CO2 [Moles/Vol] 25.0 mmol/L 21.0-32.0 [facility] Globulin (S) [Mass/Vol] 3.7 g/dL 2.2-4.2 [facility] Urea nitrogen/Creatinine [Mass ratio] 11.9 mg/mg 10-20 [facility] Laboratory - Drug toxicology Ordered By: Darius Rosales on 08-22-2023 Amphetamines Ql (U) Positive <1000 ng/mL [place] Benzodiazepines Ql (U) Negative < 200 ng/mL [facility] Cannabinoids Screen Ql (U) Positive < 50 ng/mL [facility] Cocaine Ql (U) Negative < 300 ng/mL [facility] Opiates Ql (U) Negative < 300 ng/mL [facility] Laboratory - Hematology and Cell countsOrdered By: Darius Rosales on 08-22-2023 Anisocytosis Ql (Bld) 1+ [facility] Erythrocyte distribution width (RBC) [Entitic vol] 56.9 fL 35.1-43.9 [facility] Erythrocyte distribution width (RBC) [Ratio] 20.7 % 11.6-14.6 [facility] Immature granulocytes/100 WBC (Bld) 0.200 % 0.0-0.9 [facility] Comment on above: IG% - Immature Granu locytes (promyelocytes, myelocytes and metamyelocytes) > 1% indicates that a LEFT SHIFT is Present. MCH (RBC) [Entitic mass] 22.9 pg 27.0-32.0 [facility] Nucleated RBC/100 WBC (Bld) [Ratio] 0 % 0-5 [facility] Auto (RBC) [Mass/Vol]Or dered By: Darius Rosales on 08-22-2023 MCHC (RBC) [Mass/Vol] 30.2 g/dL 32-36 [facility] No Panel InformationOrdered By: Darius Rosales on 08-22-2023 Estimated Creatinine Clearance Calc 58.50 ml/min [facility] Estimated GFR (MDRD) Amer 83 mL/min >60 [facility] Comment on above: GFR Calc Estimated GFR (MDRD) Non-Af Amer 68 mL/min >60 [facility] Comment on above: Non- GFR Calc Ethyl Alcohol Level < 3.0 mg/dL [place] Comment on above: The serum:whole bloo d ethanol ratio is approximately 1.14and varies slightly with hematocrit. Medical Alcohol reference interval and critical value innon-tolerant individuals; 50 - 100 Impairment 100 Intoxication 100 - 250 Severe Poisoning 250 - 400 Deep/possible fatal coma 22.9 pg 27.0-32.0 [facility] 20.7 % 11.6-14.6 [facility] 56.9 fl 35.1-43.9 [facility] 0.200 % 0.0-0.9 [facility] 0 % 0-5 [facility] 1+ [facility] 68 mL/min >60 [facility] 83 mL/min >60 [facility] 58.50 ml/min [facility] 11.9 RATIO 10-20 [facility] 3.7 g/dL 2.2-4.2 [facility] 156 U/L 45-117 [facility] 66 U/L 13-56 [facility] 25.0 mmol/L 21.0-32.0 [facility] < 3.0 mg/dL [facility] MDMA (Ecstasy) Screen Positive < 500 ng/mL [facility] Urine Barbiturates Screen Negative < 200 ng/mL [facility] Urine Drug Screen Comment [facility] Comment on above: CONFIRMATORY TESTING FOR [...] Methadone Screen Negative < 300 ng/mL [facility] Positive < 50 ng/mL [facility] Negative < 300 ng/mL [facility] Platelets bldOrdered By: Leland Rosales on 08-22-2023 Platelets (Bld) [#/Vol] 74 10*3/uL 150-450 [facility] Serum or plasma albumin altrice urement (mass/volume)Ordered By: Darius Rosales on 08-22-2023 Albumin [Mass/Vol] 3.0 g/dL 3.2-5.0 [facility] Serum or plasma albumin/glob ulin mass ratioOrdered By: Darius Rosales on 08-22-2023 Albumin/Globulin [Mass ratio] 0.8 {ratio} 0.9-2.4 [facility] Serum or plasma calcium latrice urement (mass/volume)Ordered By: Darius Rosales on 08-22-2023 Calcium [Mass/Vol] 8.7 mg/dL 8.5-10.1 [facility] Serum or plasma creatinine m easurement (mass/volume)Ordered By: Darius Rosales on 08-22-2023 Creatinine [Mass/Vol] 0.92 mg/dL 0.55-1.02 [facility] Comment on above: The validity of the calculated GFR & GFRAA in patients over 70 years has not been determined. Clinical correlation is essential. Serum or plasma urea nitroge n measurement (mass/volume)Ordered By: Darius Rosales on 08-22-2023 Urea nitrogen [Mass/Vol] 11 mg/dL 7-18 [facility] Thin prep Papanicolaou smear with manual screeningOrdered By: Darius Rosales on 08-22-2023 Thin prep Papanicolaou smear with manual screening 123 U/L 15-37 [facility] Thin prep Papanicolaou smear with manual screening 4 5-15 [facility] Urine phencyclidine (PCP) de tectionOrdered By: Darius Rosales on 08-22-2023 Phencyclidine Ql (U) Negative < 25 ng/mL [place] Anaerobic cultureOrdered By: Son Adams on 08-15-2023 Bacteria identified Anaer cx Nom (Unsp spec) No growth in 5 days. [facility] Bacteria identified Anaer cx Nom (Unsp spec) No growth in 5 days. [facility] Bacterial body fluid culture Ordered By: Son Adams on 08-15-2023 Bacteria identified Cx Nom (Body fld) No growth aerobically. [facility] Bacteria identified Cx Nom (Body fld) No growth aerobically. [facility] Body fluid appearanceOrdered By: Son Adams on 08-15-2023 Appearance (Body fld) CLEAR [facility] Body fluid color determinati onOrdered By: Son Adams on 08-15-2023 Color (Body fld) LT YEL [facility] Body fluid lactate dehydroge nase measurement (enzymatic activity/volume) by pyruvateOrdered By: Son Adams on 08-15-2023 LDH Pyruvate to lactate reaction (Body fld) [Catalytic activity/Vol] 41 Units/L Not Establ. [facility] Body fluid leukocytes count (number/volume)Ordered By: Son Adams on 08-15-2023 WBC (Body fld) [#/Vol] 0.155 10*3/uL [facility] Body fluid lymphocytes/100 l eukocytesOrdered By: Son Adams on 08-15-2023 Lymphocytes/100 WBC (Body fld) 51 % [facility] Body fluid macrophage countO rdered By: Son Adams on 08-15-2023 Macrophages (Body fld) [#/Vol] 5 % [facility] Body fluid protein measureme nt (mass/volume)Ordered By: Son Adams on 08-15-2023 Protein (Body fld) [Mass/Vol] 0.8 g/dL Not Establ. [facility] Body fluid segmented neutrop hils count (number/volume)Ordered By: Son Adams on 08-15-2023 Segmented neutrophils (Body fld) [#/Vol] 4 % [facility] Cytology report of Body flui d Cyto stainOrdered By: Son Adams on 08-15-2023 Cytology report Cyto stain Doc (Body fld) SEE PATHOLOGY REPORT [facility] Comment on above: Specimen submitted t o Anatomical Pathology Department for testing. Gram stain for investigation of transfusion reactionOrdered By: Son Adams on 08-15-2023 Microscopic observation Gram stain Nom (Unsp spec) [facility] Microscopic observation Gram stain Nom (Unsp spec) [facility] Mononuclear cells Auto (Body fld) [#/Vol]Ordered By: Son Adams on 08-15-2023 Mononuclear cells (Body fld) [#/Vol] 0.149 10*3/uL [facility] No Panel InformationOrdered By: Son Adams on 08-15-2023 Body Fluid Comment 2 SEE COMMENT [facility] Body Fluid Glucose 101 mg/dL 40 [facility] Body Fluid Mononuclear WBCs (%) 96.1 % [facility] Body Fluid Pathologist Comment Reviewed [facility] Comment on above: Previous reported re sult: May follow Edited by: RGOSHIRA on 08/17/23:1500Negative for malignant cells.Lonnie Nelson D.O. 08/17/23 AMENDED REPORT 08/17/23 1500 PATH COMM/BF previously reported as: May follow Body Fluid Polynuclear WBCs (#) 0.006 10^3/uL [facility] Body Fluid Polynuclear WBCs (%) 3.9 % [facility] Body Fluid RBC 185 /mm3 [facility] 185 /mm3 [facility] 3.9 % [facility] 96.1 % [facility] 0.006 10^3/uL [facility] Reviewed [facility] SEE COMMENT [facility] 101 mg/dL 70 [facility] Specimen source identificati on of body fluidOrdered By: oSn Adams on 08-15-2023 Specimen source Nom (Body fld) OTHER [facility] Comment on above: PARACENTESIS. Thin prep Papanicolaou smear with manual screeningOrdered By: Son Adams on 08-15-2023 Thin prep Papanicolaou smear with manual screening 37 % [facility] Thin prep Papanicolaou smear with manual screening 3 % [facility] Total cell countOrdered By: Son Adams on 08-15-2023 Cells counted Molgen (Bld/Tiss) [#] 0.228 10^3/ul 0.000-0.000 [facility] Comment on above: This is the Total Nu mber of Nucleated Cell Types in the Body Fluid. Anaerobic cultureOrdered By: Gurinder Kyrie on 07-22-2023 Bacteria identified Anaer cx Nom (Unsp spec) No growth in 5 days. [facility] Bacterial body fluid culture Ordered By: Gurinder Kyrie on 07-22-2023 Bacteria identified Cx Nom (Body fld) Culture exhibits no growth. [facility] Gram stain for investigation of transfusion reactionOrdered By: Gurinder Mittal on 07-22-2023 Microscopic observation Gram stain Nom (Unsp spec) [facility] Absolute lymphocyte countOrd ered By: Gurinder anita on 07-21-2023 Lymphocytes Auto (Unsp spec) [#/Vol] 1.71 10*3/uL 0.83-4.51 [facility] Basophil percentageOrdered B y: Gurinder Mittal on 07-21-2023 Basophil percentage 155 mg/dL 74-106 [facility] Basophil percentage 5.8 g/dL 6.4-8.2 [facility] Basophil percentage 1.20 mg/dL 0.20-1.00 [facility] Basophil percentage 140 mmol/L 136-145 [facility] Basophil percentage 3.3 mmol/L 3.5-5.1 [facility] Basophil percentage 112 mmol/L 98-107 [facility] Basophils (Bld) [#/Vol] 5.4 10*3/uL 4.4-11.0 [facility] Basophils (Bld) [#/Vol] 2.8 10*3/uL 2.0-7.7 [facility] Basophils/100 WBC (Bld) 0.9 % 0-1 [facility] Basophils/100 WBC (Bld) 52.2 % 47-70 [facility] Basophils/100 WBC (Bld) 4.3 % 0-5 [facility] Bilirubin [Mass/Vol] 1.20 mg/dL 0.20-1.00 [place] Comment on above: For patients on eltr ombopag therapy, use of Dimension [place] TBIL is not recommended. Chloride [Moles/Vol] 112 mmol/L 98-107 [place] Eosinophils/100 WBC (Bld) 4.3 % 0-5 [facility] Glucose [Mass/Vol] 155 mg/dL 74-106 [facility] Comment on above: Fasting Glucose resu lt greater than or equal to 126 mg/dL suggests DIABETES MELLITUS per A.D.A. criteria. Neutrophils (Bld) [#/Vol] 2.8 10*3/uL 2.0-7.7 [facility] Neutrophils/100 WBC (Bld) 52.2 % 47-70 [facility] Potassium [Moles/Vol] 3.3 mmol/L 3.5-5.1 [facility] Protein [Mass/Vol] 5.8 g/dL 6.4-8.2 [facility] Sodium [Moles/Vol] 140 mmol/L 136-145 [facility] WBC (Bld) [#/Vol] 5.4 10*3/uL 4.4-11.0 [facility] Blood erythrocytes count (nu mber/volume)Ordered By: Gurinder Mittal on 07-21-2023 RBC (Bld) [#/Vol] 3.88 10*6/uL 4.2-5.4 [facility] Blood hemoglobin measurement (mass/volume)Ordered By: Gurinder Mittal on 07-21-2023 Hemoglobin (Bld) [Mass/Vol] 8.7 g/dL 12.0-15.0 [facility] Blood lymphocytes/100 leukoc ytesOrdered By: Gurinder Mittal on 07-21-2023 Lymphocytes/100 WBC (Bld) 31.8 % 19-41 [facility] Blood manual differential co mment interpretation (narrative result)Ordered By: Gurinder Mittal on 07-21-2023 Manual differential comment Eliezer (Bld) [Interp] SCANNED [facility] Blood monocytes/100 leukocyt esOrdered By: Gurinder Mittal on 07-21-2023 Monocytes/100 WBC (Bld) 10.6 % 0-10 [facility] Blood platelet adequacy dete ction by light microscopyOrdered By: Gurinder Mittal on 07-21-2023 Platelets LM Ql (Bld) MKD DEC ADEQ [facility] Body fluid appearanceOrdered By: Gurinder Mittal on 07-21-2023 Appearance (Body fld) CLEAR [facility] Body fluid color determinati onOrdered By: Gurinder Mittal on 07-21-2023 Color (Body fld) YELLOW [facility] Body fluid leukocytes count (number/volume)Ordered By: Gurinder Mittal on 07-21-2023 WBC (Body fld) [#/Vol] 0.147 10*3/uL [facility] Body fluid lymphocytes/100 l eukocytesOrdered By: Gurinder Mittal on 07-21-2023 Lymphocytes/100 WBC (Body fld) 48 % [facility] Body fluid macrophage countO rdered By: Gurinder Mittal on 07-21-2023 Macrophages (Body fld) [#/Vol] 11 % [facility] Body fluid mesothelial cell percentageOrdered By: Gurinder Mittal on 07-21-2023 Mesothelial cells/100 WBC (Body fld) 16 % [facility] Body fluid segmented neutrop hils count (number/volume)Ordered By: Gurinder Mittal on 07-21-2023 Segmented neutrophils (Body fld) [#/Vol] 6 % [facility] Determination of erythrocyte mean corpuscular volume (MCV)Ordered By: Gurinedr Mittal on 07-21-2023 MCV (RBC) [Entitic vol] 77.3 fL 81-99 [facility] Hematocrit Auto (Bld) [Volum e fraction]Ordered By: Gurinder Mittal on 07-21-2023 Hematocrit (Bld) [Volume fraction] 30.0 % 37-47 [facility] Hypochromatic red blood cell detectionOrdered By: Gurinder Mittal on 07-21-2023 Hypochromia Ql (Bld) 1+ [place] Laboratory - Chemistry and C hemistry - challengeOrdered By: Gurinder Mittal on 07-21-2023 ALP [Catalytic activity/Vol] 141 U/L 45-117 [facility] ALT [Catalytic activity/Vol] 69 U/L 13-56 [facility] CO2 [Moles/Vol] 23.0 mmol/L 21.0-32.0 [facility] Globulin (S) [Mass/Vol] 3.4 g/dL 2.2-4.2 [facility] Urea nitrogen/Creatinine [Mass ratio] 8.3 mg/mg 10-20 [facility] Laboratory - Hematology and Cell countsOrdered By: Gurinder Mittal on 07-21-2023 Anisocytosis Ql (Bld) 2+ [facility] Erythrocyte distribution width (RBC) [Entitic vol] 60.9 fL 35.1-43.9 [facility] Erythrocyte distribution width (RBC) [Ratio] 21.8 % 11.6-14.6 [facility] Immature granulocytes/100 WBC (Bld) 0.200 % 0.0-0.9 [facility] Comment on above: IG% - Immature Granu locytes (promyelocytes, myelocytes and metamyelocytes) > 1% indicates that a LEFT SHIFT is Present. MCH (RBC) [Entitic mass] 22.4 pg 27.0-32.0 [facility] Nucleated RBC/100 WBC (Bld) [Ratio] 0 % 0-5 [facility] MCHC Auto (RBC) [Mass/Vol]Or dered By: Gurinder Mittal on 07-21-2023 MCHC (RBC) [Mass/Vol] 29.0 g/dL 32-36 [facility] Comment on above: Delta: 30.7 on 07/20-1835 Macrocytes detectionOrdered By: Gurinder Mittal on 07-21-2023 Macrocytes Ql (Bld) 1+ [facility] Mononuclear cells Auto (Body fld) [#/Vol]Ordered By: Gurinder Mittal on 07-21-2023 Mononuclear cells (Body fld) [#/Vol] 0.137 10*3/uL [facility] No Panel InformationOrdered By: Gurinder Mittal on 07-21-2023 Body Fluid Comment 2 SEE COMMENT [facility] Body Fluid Mononuclear WBCs (%) 93.2 % [facility] Body Fluid Pathologist Comment May follow [facility] Body Fluid Pathologist Comment Reviewed [facility] Comment on above: Previous reported re sult: May follow Edited by: RGOSHIRA on 07/22/23:0952Negative for malignant cells.Please also refer to patient's cytology report [id number].Wilder Godfrey M.D. 07/22/23 AMENDED REPORT 07/22/23 0952 PATH COMM/BF previously reported as: May follow Body Fluid Polynuclear WBCs (#) 0.010 10^3/uL [facility] Body Fluid Polynuclear WBCs (%) 6.8 % [facility] Body Fluid RBC 100 /mm3 [facility] 100 /mm3 [facility] 6.8 % [facility] 93.2 % [facility] 0.010 10^3/uL [facility] Reviewed [facility] SEE COMMENT [facility] Estimated Creatinine Clearance Calc 56.07 ml/min [facility] Estimated GFR (MDRD) Amer 79 mL/min >60 [facility] Comment on above: GFR Calc Estimated GFR (MDRD) Non-Af Amer 66 mL/min >60 [facility] Comment on above: Non- GFR Calc 22.4 pg 27.0-32.0 [facility] 21.8 % 11.6-14.6 [facility] 60.9 fl 35.1-43.9 [facility] 0.200 % 0.0-0.9 [facility] 0 % 0-5 [facility] 2+ [facility] 66 mL/min >60 [facility] 79 mL/min >60 [facility] 56.07 ml/min [facility] 8.3 RATIO 10-20 [facility] 3.4 g/dL 2.2-4.2 [facility] 141 U/L 45-117 [facility] 69 U/L 13-56 [facility] 23.0 mmol/L 21.0-32.0 [facility] Platelets bldOrdered By: Luis Mittal on 07-21-2023 Platelets (Bld) [#/Vol] 55 10*3/uL 150-450 [facility] Serum or plasma albumin latrice urement (mass/volume)Ordered By: Gurinder Mittal on 07-21-2023 Albumin [Mass/Vol] 2.4 g/dL 3.2-5.0 [facility] Serum or plasma albumin/glob ulin mass ratioOrdered By: Gurinder Mittal on 07-21-2023 Albumin/Globulin [Mass ratio] 0.7 {ratio} 0.9-2.4 [facility] Serum or plasma calcium latrice urement (mass/volume)Ordered By: Gurinder Mittal on 07-21-2023 Calcium [Mass/Vol] 8.3 mg/dL 8.5-10.1 [facility] Serum or plasma creatinine m easurement (mass/volume)Ordered By: Gurinder Mittal on 07-21-2023 Creatinine [Mass/Vol] 0.96 mg/dL 0.55-1.02 [facility] Comment on above: The validity of the calculated GFR & GFRAA in patients over 70 years has not been determined. Clinical correlation is essential. Serum or plasma urea nitroge n measurement (mass/volume)Ordered By: Gurinder Mittal on 07-21-2023 Urea nitrogen [Mass/Vol] 8 mg/dL 7-18 [facility] Specimen source identificati on of body fluidOrdered By: Gurinder Mittal on 07-21-2023 Specimen source Nom (Body fld) ASCITES FLUID [facility] Thin prep Papanicolaou smear with manual screeningOrdered By: Gurinder Mittal on 07-21-2023 Thin prep Papanicolaou smear with manual screening 19 % [facility] Thin prep Papanicolaou smear with manual screening 1+ [facility] Thin prep Papanicolaou smear with manual screening 116 U/L 15-37 [facility] Thin prep Papanicolaou smear with manual screening 5 5-15 [facility] Total cell countOrdered By: Gurinder Mittal on 07-21-2023 Cells counted Molgen (Bld/Tiss) [#] 0.210 10^3/ul 0.000-0.000 [facility] Comment on above: This is the Total Nu mber of Nucleated Cell Types in the Body Fluid. Absolute lymphocyte countOrd ered By: Darius Rosales on 07-20-2023 Lymphocytes Auto (Unsp spec) [#/Vol] 1.87 10*3/uL 0.83-4.51 [facility] Basophil percentageOrdered B y: Darius Rosales on 07-20-2023 Basophils/100 WBC (Bld) 0.8 % 0-1 [facility] Bilirubin [Mass/Vol] 1.70 mg/dL 0.20-1.00 [place] Comment on above: For patients on eltr ombopag therapy, use of Dimension [place] TBIL is not recommended. Chloride [Moles/Vol] 112 mmol/L 98-107 [place] Eosinophils/100 WBC (Bld) 4.2 % 0-5 [facility] Glucose [Mass/Vol] 86 mg/dL 74-106 [facility] Neutrophils (Bld) [#/Vol] 3.5 10*3/uL 2.0-7.7 [facility] Neutrophils/100 WBC (Bld) 55.7 % 47-70 [facility] Potassium [Moles/Vol] 3.7 mmol/L 3.5-5.1 [facility] Protein [Mass/Vol] 6.4 g/dL 6.4-8.2 [facility] Sodium [Moles/Vol] 142 mmol/L 136-145 [facility] WBC (Bld) [#/Vol] 6.2 10*3/uL 4.4-11.0 [facility] Blood erythrocytes count (nu mber/volume)Ordered By: Darius Rosales on 07-20-2023 RBC (Bld) [#/Vol] 4.19 10*6/uL 4.2-5.4 [facility] Blood hemoglobin measurement (mass/volume)Ordered By: Darius Rosales on 07-20-2023 Hemoglobin (Bld) [Mass/Vol] 9.7 g/dL 12.0-15.0 [facility] Blood lymphocytes/100 leukoc ytesOrdered By: Darius Rosales on 07-20-2023 Lymphocytes/100 WBC (Bld) 30.0 % 19-41 [facility] Blood monocytes/100 leukocyt esOrdered By: Darius Rosales on 07-20-2023 Monocytes/100 WBC (Bld) 9.1 % 0-10 [facility] Blood platelet adequacy dete ction by light microscopyOrdered By: Darius Rosales on 07-20-2023 Platelets LM Ql (Bld) MOD DEC ADEQ [facility] Blood platelet mean volumeOr dered By: Darius Rosales on 07-20-2023 Platelet mean volume (Bld) [Entitic vol] TNP [facility] Comment on above: Test not performed Blood platelet morphology de termination (nominal result)Ordered By: Darius Rosales on 07-20-2023 Platelet morphology finding Nom (Bld) LARGE [facility] Determination of erythrocyte mean corpuscular volume (MCV)Ordered By: Darius Rosales on 07-20-2023 MCV (RBC) [Entitic vol] 75.4 fL 81-99 [facility] Direct bilirubinOrdered By: Darius Rosales on 07-20-2023 Bilirubin.direct [Mass/Vol] 0.87 mg/dL 0.00-0.30 [facility] Hematocrit Auto (Bld) [Volum e fraction]Ordered By: Darius Rosales on 07-20-2023 Hematocrit (Bld) [Volume fraction] 31.6 % 37-47 [facility] Hypochromatic red blood cell detectionOrdered By: Darius Rosales on 07-20-2023 Hypochromia Ql (Bld) RARE [place] INR in Blood by Coagulation assayOrdered By: Darius Rosales on 07-20-2023 INR Coag (Bld) [Relative time] 1.7 {INR} [facility] Laboratory - Chemistry and C hemistry - challengeOrdered By: Darius Rosales on 07-20-2023 ALP [Catalytic activity/Vol] 156 U/L 45-117 [facility] ALT [Catalytic activity/Vol] 76 U/L 13-56 [facility] CO2 [Moles/Vol] 26.0 mmol/L 21.0-32.0 [facility] Globulin (S) [Mass/Vol] 3.6 g/dL 2.2-4.2 [facility] Lipase [Catalytic activity/Vol] 49 U/L [facility] Comment on above: Please note:LIPASE r evised reference range effective 23. New Lipase methodology. Expected to produce lower values than the previous assay method. NEW Reference Range: 13 - 75 U/L Urea nitrogen/Creatinine [Mass ratio] 9.6 mg/mg 07-15 [facility] Laboratory - CoagulationOrde red By: Darius Rosales on 07-20-2023 PT Coag (PPP) [Time] 19.6 s 11.7-14.9 [place] [facility] - Hematology and Cell countsOrdered By: Darius Rosales on 07-20-2023 Anisocytosis Ql (Bld) 1+ [facility] Erythrocyte distribution width (RBC) [Entitic vol] 59.2 fL 35.1-43.9 [facility] Erythrocyte distribution width (RBC) [Ratio] 21.8 % 11.6-14.6 [facility] Immature granulocytes/100 WBC (Bld) 0.200 % 0.0-0.9 [facility] Comment on above: IG% - Immature Granu locytes (promyelocytes, myelocytes and metamyelocytes) > 1% indicates that a LEFT SHIFT is Present. MCH (RBC) [Entitic mass] 23.2 pg 27.0-32.0 [facility] Nucleated RBC/100 WBC (Bld) [Ratio] 0 % 0-5 [facility] MCHC Auto (RBC) [Mass/Vol]Or dered By: Darius Rosales on 07-20-2023 MCHC (RBC) [Mass/Vol] 30.7 g/dL 32-36 [facility] No Panel InformationOrdered By: Darius Rosales on 07-20-2023 Estimated Creatinine Clearance Calc 57.26 ml/min [facility] Estimated GFR (MDRD) Amer 82 mL/min >60 [facility] Comment on above: GFR Calc Estimated GFR (MDRD) Non-Af Amer 68 mL/min >60 [facility] Comment on above: Non- GFR Calc 19.6 SECONDS 11.7-14.9 [facility] 49 U/L 13-75 [facility] Ovalocyte detectionOrdered B y: Darius Rosales on 07-20-2023 Ovalocytes LM Ql (Bld) RARE [facility] Platelets bldOrdered By: Leland Rosales on 07-20-2023 Platelets (Bld) [#/Vol] 59 10*3/uL 150-450 [facility] RBC morphologyOrdered By: Do lucille Rosales on 07-20-2023 RBC morphology finding Nom (Bld) N CHROM NORMAL NORM C&C [facility] Serum or plasma albumin latrice urement (mass/volume)Ordered By: Darius Rosales on 07-20-2023 Albumin [Mass/Vol] 2.8 g/dL 3.2-5.0 [facility] Serum or plasma calcium latrice urement (mass/volume)Ordered By: Darius Rosales on 07-20-2023 Calcium [Mass/Vol] 8.5 mg/dL 8.5-10.1 [facility] Serum or plasma creatinine m easurement (mass/volume)Ordered By: Darius Rosales on 07-20-2023 Creatinine [Mass/Vol] 0.94 mg/dL 0.55-1.02 [facility] Comment on above: The validity of the calculated GFR & GFRAA in patients over 70 years has not been determined. Clinical correlation is essential. Serum or plasma urea nitroge n measurement (mass/volume)Ordered By: Darius Rosales on 07-20-2023 Urea nitrogen [Mass/Vol] 9 mg/dL 7-18 [facility] Thin prep Papanicolaou smear with manual screeningOrdered By: Darius Rosales on 07-20-2023 Thin prep Papanicolaou smear with manual screening 1+ [facility] Thin prep Papanicolaou smear with manual screening 134 U/L 15-37 [facility] Thin prep Papanicolaou smear with manual screening 4 5-15 [facility] Absolute lymphocyte countOrd ered By: ED PROVIDER on 04-25-2023 Lymphocytes Auto (Unsp spec) [#/Vol] 1.45 10*3/uL 0.83-4.51 [facility] Basophil percentageOrdered B y: Shon Quintero on 04-25-2023 Basophil percentage 0-5 SEEN /hpf 0-5 [facility] Basophil percentageOrdered B y: ED PROVIDER on 04-25-2023 Basophils/100 WBC (Bld) 0.5 % 0-1 [facility] Bilirubin [Mass/Vol] 1.40 mg/dL 0.20-1.00 [place] Comment on above: For patients on eltr ombopag therapy, use of Dimension [place] TBIL is not recommended. Chloride [Moles/Vol] 113 mmol/L 98-107 [place] Eosinophils/100 WBC (Bld) 3.0 % 0-5 [facility] Glucose [Mass/Vol] 171 mg/dL 74-106 [facility] Comment on above: Fasting Glucose resu lt greater than or equal to 126 mg/dL suggests DIABETES MELLITUS per A.D.A. criteria. Neutrophils (Bld) [#/Vol] 4.0 10*3/uL 2.0-7.7 [facility] Neutrophils/100 WBC (Bld) 66.1 % 47-70 [facility] Potassium [Moles/Vol] 3.9 mmol/L 3.5-5.1 [facility] Comment on above: Moderate Hemolysis, Result may be falsely increased. Protein [Mass/Vol] 7.3 g/dL 6.4-8.2 [facility] Sodium [Moles/Vol] 140 mmol/L 136-145 [facility] WBC (Bld) [#/Vol] 6.0 10*3/uL 4.4-11.0 [facility] Bilirubin Test strip Ql (U)O rdered By: Shon Quintero on 04-25-2023 Bilirubin Ql (U) 1 mg/dL Negative [facility] Comment on above: COLOR OF URINE MAY A FFECT DIPSTICK RESULTS. Blood erythrocytes count (nu mber/volume)Ordered By: ED PROVIDER on 04-25-2023 RBC (Bld) [#/Vol] 4.72 10*6/uL 4.2-5.4 [facility] Blood hemoglobin measurement (mass/volume)Ordered By: ED PROVIDER on 04-25-2023 Hemoglobin (Bld) [Mass/Vol] 10.7 g/dL 12.0-15.0 [facility] Blood lymphocytes/100 leukoc ytesOrdered By: ED PROVIDER on 04-25-2023 Lymphocytes/100 WBC (Bld) 24.1 % 19-41 [facility] Blood manual differential co mment interpretation (narrative result)Ordered By: Shon Quintero on 04-25-2023 Manual differential comment Eliezer (Bld) [Interp] SCANNED [facility] Blood monocytes/100 leukocyt esOrdered By: ED PROVIDER on 04-25-2023 Monocytes/100 WBC (Bld) 6.0 % 0-10 [facility] Determination of erythrocyte mean corpuscular volume (MCV)Ordered By: ED PROVIDER on 04-25-2023 MCV (RBC) [Entitic vol] 74.8 fL 81-99 [facility] Hematocrit Auto (Bld) [Volum e fraction]Ordered By: ED PROVIDER on 04-25-2023 Hematocrit (Bld) [Volume fraction] 35.3 % 37-47 [facility] INR in Blood by Coagulation assayOrdered By: Shon Quintero on 04-25-2023 INR Coag (Bld) [Relative time] 1.4 {INR} [facility] Ketones Test strip Ql (U)Ord ered By: Shon Quintero on 04-25-2023 Ketones Ql (U) 5 mg/dl Negative [facility] Laboratory - Chemistry and C hemistry - challengeOrdered By: ED PROVIDER on 04-25-2023 ALP [Catalytic activity/Vol] 153 U/L 45-117 [facility] ALT [Catalytic activity/Vol] 113 U/L 13-56 [facility] CO2 [Moles/Vol] 23.0 mmol/L 21.0-32.0 [facility] Globulin (S) [Mass/Vol] 4.3 g/dL 2.2-4.2 [facility] Urea nitrogen/Creatinine [Mass ratio] 7.4 mg/mg 10-20 [facility] Laboratory - CoagulationOrde red By: Shon Quintero on 04-25-2023 PT Coag (PPP) [Time] 17.0 s 11.7-14.9 [place] [facility] - Hematology and Cell countsOrdered By: ED PROVIDER on 04-25-2023 Erythrocyte distribution width (RBC) [Entitic vol] 56.5 fL 35.1-43.9 [facility] Erythrocyte distribution width (RBC) [Ratio] 21.6 % 11.6-14.6 [facility] Immature granulocytes/100 WBC (Bld) 0.300 % 0.0-0.9 [facility] Comment on above: IG% - Immature Granu locytes (promyelocytes, myelocytes and metamyelocytes) > 1% indicates that a LEFT SHIFT is Present. MCH (RBC) [Entitic mass] 22.7 pg 27.0-32.0 [facility] Nucleated RBC/100 WBC (Bld) [Ratio] 0 % 0-5 [facility] MCHC Auto (RBC) [Mass/Vol]Or dered By: ED PROVIDER on 04-25-2023 MCHC (RBC) [Mass/Vol] 30.3 g/dL 32-36 [facility] Mucus LM Ql (Urine sed)Order ed By: Shon Quintero on 04-25-2023 Mucus Ql (Urine sed) 0 SEEN /hpf [facility] Nitrite Test strip Ql (U)Ord ered By: Shon Quintero on 04-25-2023 Nitrite Ql (U) Negative Negative [facility] No Panel InformationOrdered By: ED PROVIDER on 04-25-2023 Estimated Creatinine Clearance Calc 57.26 ml/min [facility] Estimated GFR (MDRD) Amer 81 mL/min >60 [facility] Comment on above: GFR Calc Estimated GFR (MDRD) Non-Af Amer 67 mL/min >60 [facility] Comment on above: Non- GFR Calc Platelets bldOrdered By: ED PROVIDER on 04-25-2023 Platelets (Bld) [#/Vol] 81 10*3/uL 150-450 [facility] Protein Test strip Ql (U)Ord ered By: Shon Quintero on 04-25-2023 Protein Ql (U) 30 mg/dl Negative [facility] Serum or plasma albumin latrice urement (mass/volume)Ordered By: ED PROVIDER on 04-25-2023 Albumin [Mass/Vol] 3.0 g/dL 3.2-5.0 [facility] Serum or plasma albumin/glob ulin mass ratioOrdered By: ED PROVIDER on 04-25-2023 Albumin/Globulin [Mass ratio] 0.7 {ratio} 0.9-2.4 [facility] Serum or plasma calcium latrice urement (mass/volume)Ordered By: ED PROVIDER on 04-25-2023 Calcium [Mass/Vol] 8.9 mg/dL 8.5-10.1 [facility] Serum or plasma creatinine m easurement (mass/volume)Ordered By: ED PROVIDER on 04-25-2023 Creatinine [Mass/Vol] 0.94 mg/dL 0.55-1.02 [facility] Comment on above: The validity of the calculated GFR & GFRAA in patients over 70 years has not been determined. Clinical correlation is essential. Serum or plasma urea nitroge n measurement (mass/volume)Ordered By: ED PROVIDER on 04-25-2023 Urea nitrogen [Mass/Vol] 7 mg/dL 7-18 [facility] Squamous epithelial cells de tection in urine sediment by light microscopyOrdered By: Shon Quintero on 04-25-2023 Epithelial cells.squamous LM Ql (Urine sed) 5-10 SEEN /hpf 5-10 [facility] Thin prep Papanicolaou smear with manual screeningOrdered By: ED PROVIDER on 04-25-2023 Thin prep Papanicolaou smear with manual screening 219 U/L 15-37 [facility] Comment on above: Moderate Hemolysis, Result may be falsely increased. Thin prep Papanicolaou smear with manual screening 4 5-15 [facility] Urine blood detectionOrdered By: Shon Quintero on 04-25-2023 RBC Ql (U) 50 /ul Negative [facility] RBC Ql (U) 0-5 SEEN /hpf 0-5 [facility] Urine clarityOrdered By: Shon Quintero on 04-25-2023 Clarity (U) Clear Clear [facility] Urine color determinationOrd ered By: Shon Quintero on 04-25-2023 Color (U) Yellow Yellow [facility] Urine glucose detectionOrder ed By: Shon Quintero on 04-25-2023 Glucose Ql (U) Normal mg/dl Normal [facility] Urine leukocyte esterase det ection by dipstickOrdered By: Shon Quintero on 04-25-2023 Leukocyte esterase Test strip Ql (U) 25 /ul Negative [facility] Urine pHOrdered By: Shon bender on 04-25-2023 pH (U) 7.0 [pH] 5.0 - 8.0 [facility] Urine sediment bacteria coun t by microscopy (number/high power field)Ordered By: Shon Quintero on 04-25-2023 Bacteria LM.HPF (Urine sed) [#/Area] 1 /[HPF] None Seen [facility] Urine specific gravity measu rementOrdered By: Shon Quintero on 04-25-2023 Specific gravity (U) [Rel density] 1.020 1.002-1.030 [facility] Urobilinogen Auto test strip Ql (U)Ordered By: Shon Quintero on 04-25-2023 Urobilinogen Ql (U) 4 mg/dl Normal [facility] JEANETH SCREENINGon 01-24-2023 [facility] Influenza virus A and B RNA and SARS-CoV-2 (COVID-19) N gene panel PHYLLIS+probe (Resp)on 09-30-2022 FLUAV RNA PHYLLIS+probe Ql (Unsp spec) Negative Negative for Influenza A by RT-PCR [facility] FLUBV RNA PHYLLIS+probe Ql (Unsp spec) Negative Negative for Influenza B by RT-PCR [facility] SARS-CoV-2 (COVID-19) RNA PHYLLIS+probe Ql (Resp) SARS-CoV-2 (Agent of COVID-19) Not Detected by RT-PCR or equivalent method. Not Detected [facility] Absolute lymphocyte counton 08-27-2022 Lymphocytes Auto (Unsp spec) [#/Vol] 2.01 10*3/uL 0.83-4.51 [facility] Work Phone: Basophil percentageon 2021 Ammonia (P) [Moles/Vol] 56.0 umol/L 11-32 [facility] Work Phone: Basophil percentage < 0.2 AI 0.0-0.9 [facility] Work Phone: Basophils/100 WBC (Bld) 0.7 % 0-1 [facility] Work Phone: Bilirubin [Mass/Vol] 0.90 mg/dL 0.20-1.00 [place] Work Phone: Comment on above: For patients on eltr ombopag therapy, use of Dimension [place] TBIL is not recommended. Chloride [Moles/Vol] 113 mmol/L 98-107 [place] Work Phone: Eosinophils/100 WBC (Bld) 2.7 % 0-5 [facility] Work Phone: Glucose [Mass/Vol] 87 mg/dL 74-106 [facility] Work Phone: Neutrophils (Bld) [#/Vol] 3.2 10*3/uL 2.0-7.7 [facility] Work Phone: Neutrophils/100 WBC (Bld) 54.0 % 47-70 [facility] Work Phone: Potassium [Moles/Vol] 3.8 mmol/L 3.5-5.1 [facility] Work Phone: Protein [Mass/Vol] 7.9 g/dL 6.4-8.2 [facility] Work Phone: Sodium [Moles/Vol] 140 mmol/L 136-145 [facility] Work Phone: WBC (Bld) [#/Vol] 6.0 10*3/uL 4.4-11.0 [facility] Work Phone: Blood erythrocytes count (nu mber/volume)on 08-27-2022 RBC (Bld) [#/Vol] 4.03 10*6/uL 4.2-5.4 [facility] Work Phone: Blood hemoglobin measurement (mass/volume)on 08-27-2022 Hemoglobin (Bld) [Mass/Vol] 9.9 g/dL 12.0-15.0 [facility] Work Phone: Blood lymphocytes/100 leukoc yteson 08-27-2022 Lymphocytes/100 WBC (Bld) 33.7 % 19-41 [facility] Work Phone: Blood manual differential co mment interpretation (narrative result)on 08-27-2022 Manual differential comment Eliezer (Bld) [Interp] SCANNED [facility] Work Phone: Comment on above: THROMBOCYTOPENIA NOT ED Blood monocytes/100 leukocyt eson 08-27-2022 Monocytes/100 WBC (Bld) 8.4 % 0-10 [facility] Work Phone: Blood platelet mean volumeon 08-27-2022 Platelet mean volume (Bld) [Entitic vol] TNP [facility] Work Phone: Comment on above: Test not performed Determination of erythrocyte mean corpuscular volume (MCV)on 08-27-2022 MCV (RBC) [Entitic vol] 79.7 fL 81-99 [facility] Work Phone: Erythrocyte sedimentation ra gabby 08-27-2022 ESR (Bld) [Velocity] 51 mm/h 0-30 [place] Work Phone: HIV 1 and HIV-2 antibody ass ay with HIV-1 p24 antigen detectionon 08-27-2022 HIV 1+2 Ab+HIV1 p24 Ag IA Ql Non-Reactive Nonreactive [facility] Work Phone: Hematocrit Auto (Bld) [Volum e fraction]on 08-27-2022 Hematocrit (Bld) [Volume fraction] 32.1 % 37-47 [facility] Work Phone: INR in Blood by Coagulation assayon 08-27-2022 INR Coag (Bld) [Relative time] 1.5 {INR} [facility] Work Phone: Laboratory - Chemistry and C hemistry - challengeon 08-27-2022 ALP [Catalytic activity/Vol] 151 U/L 45-117 [facility] Work Phone: ALT [Catalytic activity/Vol] 69 U/L 13-56 [facility] Work Phone: CO2 [Moles/Vol] 21.0 mmol/L 21.0-32.0 [facility] Work Phone: Globulin (S) [Mass/Vol] 5.0 g/dL 2.2-4.2 [facility] Work Phone: Urea nitrogen/Creatinine [Mass ratio] 9.6 mg/mg 10-20 [facility] Work Phone: Laboratory - Coagulationon 1 10-28-2021 PT Coag (PPP) [Time] 17.5 s 11.7-14.9 [place] Work Phone: Laboratory - Hematology and Cell countson 08-27-2022 Erythrocyte distribution width (RBC) [Entitic vol] 56.0 fL 35.1-43.9 [facility] Work Phone: Erythrocyte distribution width (RBC) [Ratio] 19.5 % 11.6-14.6 [facility] Work Phone: Immature granulocytes/100 WBC (Bld) 0.500 % 0.0-0.9 [facility] Work Phone: Comment on above: IG% - Immature Granu locytes (promyelocytes, myelocytes and metamyelocytes) > 1% indicates that a LEFT SHIFT is Present. MCH (RBC) [Entitic mass] 24.6 pg 27.0-32.0 [facility] Work Phone: Nucleated RBC/100 WBC (Bld) [Ratio] 0 % 0-5 [facility] Work Phone: MCHC Auto (RBC) [Mass/Vol]on 08-27-2022 MCHC (RBC) [Mass/Vol] 30.8 g/dL 32-36 [facility] Work Phone: No Panel Informationon 08-27 [facility] Antibody <0.2 AI 0.0-0.9 [facility] Work Phone: Ceruloplasmin See comment [facility] Work Phone: Comment on above: TEST RESULT LIMITSCe ruloplasmin 17.9 Low mg/dL 19.0-39.0 ___ TESTING PERFORMED AT [facility]. ORIGINAL REPORT ON FILE IN LAB CONTAINS ADDITIONAL TEST SITE INFORMATION. Estimated GFR (MDRD) Amer 81 mL/min >60 [facility] Work Phone: Comment on above: GFR Calc Estimated GFR (MDRD) Non-Af Amer 67 mL/min >60 [facility] Work Phone: Comment on above: Non- GFR Calc Haptoglobin See comment [facility] Work Phone: Comment on above: TEST RESULT LIMITSHa ptoglobin 32 Low mg/dL 42-296 TESTING PERFORMED AT [facility]. ORIGINAL REPORT ON FILE IN LAB CONTAINS ADDITIONAL TEST SITE INFORMATION. Hepatitis A IgM Antibody See comment [facility] Work Phone: Comment on above: TEST RESULT LIMITSAc tanacross Hepatitis Hep A Ab, IgM Negative Negative [...] with active infection. ____ TESTING PERFORMED AT [facility]. ORIGINAL REPORT ON FILE IN LAB CONTAINS ADDITIONAL TEST SITE INFORMATION. Hepatitis B Core IgM Antibody Not Reportable [facility] Work Phone: Hepatitis C Antibody (EIA) Not Reportable [facility] Work Phone: Hepatitis C Genotype See comment [facility] Work Phone: Comment on above: TEST RESULT LIMITSHC V Genotyping Non Reflex Hepatitis C Genotype 1aPlease note: This test was developed and its performance characteristics determined by [facility]. It has not been cleared or approved by the U.S. Food and Drug Administration.The FDA has determined that such clearance or approval is not necessary. This test is used for clinical purposes. It should not be regarded as investigational or for research. ___ TESTING PERFORMED AT [facility]. ORIGINAL REPORT ON FILE IN LAB CONTAINS ADDITIONAL TEST SITE INFORMATION. [employer]USTRIAL [employer]LECTRICIAN Antibody 0.2 AI 0.0-0.9 [facility] Work Phone: Platelets bldon 08-27-2022 Platelets (Bld) [#/Vol] 70 10*3/uL 150-450 [facility] Work Phone: Serum DNA double strand anti body assay (units/volume)on 08-27-2022 DNA double strand Ab Qn (S) 3 [IU]/mL 0-9 [facility] Work Phone: Comment on above: Negative <5 Equivoca l 5 - 9 Positive >9 Serum Thania-1 antibody assay (u nits/volume)on 08-27-2022 Thania-1 extractable nuclear Ab Qn (S) <0.2 AI 0.0-0.9 [facility] Work Phone: Serum Scl-70 extractable nuc lear antibody assay (units/volume)on 08-27-2022 SCL-70 extractable nuclear Ab Qn (S) <0.2 AI 0.0-0.9 [facility] Work Phone: Serum Levin extractable nucl ear antibody detectionon 08-27-2022 Levin extractable nuclear Ab Ql (S) <0.2 AI 0.0-0.9 [facility] Work Phone: Serum classic neutrophil cyt oplasmic antibody assay (units/volume)on 08-27-2022 Neutrophil cytoplasmic Ab.classic Qn (S) See comment [facility] Work Phone: Comment on above: TEST [...] up testing of positive sera with both [place]-3 and MPO-ANCA enzyme immunoassays. As many as 5% serum samples are positive only by EIA.Ref. AM J Clin Pathol 1999;111:507-513.Atypical pANCA <1:20 titer Neg:<1:20The atypical pANCA pattern has been observed in a significant percentage of patients with ulcerative colitis, primary sclerosing cholangitis and autoimmune hepatitis. ____ TESTING PERFORMED AT [facility]. ORIGINAL REPORT ON FILE IN LAB CONTAINS ADDITIONAL TEST SITE INFORMATION. Serum mitochondria antibody detectionon 08-27-2022 Mitochondria Ab Ql (S) <20.0 Units 0.0-20.0 [facility] Work Phone: Comment on above: Negative 0.0 - 20.0 Equivocal 20.1 - 24.9 Positive >24.9Mitochondrial (M2) Antibodies are found in 90-96% ofpatients with primary biliary cirrhosis.Performed at: [facility] [employer] [id number] Director: Tee Reyna PhD, Phone: [phone] Serum or plasma C reactive p rotein measurement (mass/volume)on 08-27-2022 CRP [Mass/Vol] 5.71 mg/L 0.0-3.0 [facility] Work Phone: Comment on above: C-Reactive Protein ( CRP) provides useful information for thediagnosis, therapy and monitoring of inflammatory processesand associated diseases. For the evaluation of Relative Riskfor Cardiovascular Disease, a High Sensitivity CRP (HSCRP)should be ordered. Serum or plasma actin IgG an tibody assay (units/volume)on 08-27-2022 Actin IgG Qn See comment [facility] Work Phone: Comment on above: TEST RESULT LIMITSAc tin (Smooth Muscle)Antibody 9 Units 0-19 Negative 0 - 19 Weak positive 20 - 30 Moderate to strong positive >30 Actin Antibodies are found in 52-85% of patients with autoimmune hepatitis or chronic active hepatitis and in 22% of patients with primary biliary cirrhosis. ____ TESTING PERFORMED AT [facility]. ORIGINAL REPORT ON FILE IN LAB CONTAINS ADDITIONAL TEST SITE INFORMATION. Serum or plasma albumin latrice urement (mass/volume)on 08-27-2022 Albumin [Mass/Vol] 2.9 g/dL 3.2-5.0 [facility] Work Phone: Serum or plasma albumin/glob ulin mass ratioon 08-27-2022 Albumin/Globulin [Mass ratio] 0.6 {ratio} 0.9-2.4 [facility] Work Phone: Serum or plasma isrep-8-sypp protein tumor marker measurement (units/volume)on 08-27-2022 AFP.tumor marker Qn See comment [place] Work Phone: Comment on above: TEST RESULT LIMITSAF P, Serum, Tumor Marker 23.2 High ng/mL 0.0-6.4[employer] Electrochemiluminescence Immunoassay (ECLIA)Values obtained with different assay methods or kits cannot be used interchangeably. Results cannot be interpreted as absolute evidence of the presence or absence of malignant disease.This test is not interpretable in females. __ TESTING PERFORMED AT [facility]. ORIGINAL REPORT ON FILE IN LAB CONTAINS ADDITIONAL TEST SITE INFORMATION. Serum or plasma angiotensin converting enzyme measurement (enzymatic activity/volume)on 08-27-2022 Angiotensin converting enzyme [Catalytic activity/Vol] See comment [facility] Work Phone: Comment on above: TEST RESULT LIMITSAn giotensin-Converting Enzyme PETERSON, Serum 72 U/L 14-82 TESTING PERFORMED AT [facility]. ORIGINAL REPORT ON FILE IN LAB CONTAINS ADDITIONAL TEST SITE INFORMATION. Serum or plasma calcium latrice urement (mass/volume)on 08-27-2022 Calcium [Mass/Vol] 9.0 mg/dL 8.5-10.1 [facility] Work Phone: Serum or plasma creatinine m easurement (mass/volume)on 08-27-2022 Creatinine [Mass/Vol] 0.94 mg/dL 0.55-1.02 [facility] Work Phone: Comment on above: The validity of the calculated GFR & GFRAA in patients over 70 years has not been determined. Clinical correlation is essential. Serum or plasma ferritin mic surement (mass/volume)on 08-27-2022 Ferritin [Mass/Vol] 7 ng/mL 8-252 [facility] Work Phone: Serum or plasma hepatitis B virus surface antigen detection by immunoassayon 08-27-2022 HBV surface Ag IA Ql Not Reportable [facility] Work Phone: Serum or plasma urea nitroge n measurement (mass/volume)on 08-27-2022 Urea nitrogen [Mass/Vol] 9 mg/dL 7-18 [facility] Work Phone: Serum perinuclear neutrophil cytoplasmic antibody titer by immunofluorescenceon 08-27-2022 Neutrophil cytoplasmic Ab.perinuclear IF (S) [Titer] Not Reportable [facility] Work Phone: Thin prep Papanicolaou smear with manual screeningon 08-27-2022 Thin prep Papanicolaou smear with manual screening 112 U/L 15-37 [facility] Work Phone: Thin prep Papanicolaou smear with manual screening 6 5-15 [facility] Work Phone: Thin prep Papanicolaou smear with manual screening 172 U/L 84-246 [facility] Work Phone: Thin prep Papanicolaou smear with manual screening See comment [facility] Work Phone: Comment on above: TEST RESULT LIMITSCo pper, Serum or Plasma, 78 Low ug/dL 80-158 Detection Limit = 5 TESTING PERFORMED AT [facility]. ORIGINAL REPORT ON FILE IN LAB CONTAINS ADDITIONAL TEST SITE INFORMATION. Whole blood hemoglobin A1c/t otal hemoglobin ratio (mass fraction)on 08-27-2022 HbA1c (Bld) [Mass fraction] 5.1 % 3.8-5.6 [facility] Work Phone: Comment on above: Normal < 5.7 % Predi abetic 5.7 - 6.4 % Diabetic >or= 6.5 % Please note range changes. Absolute lymphocyte counton 05-21-2022 Lymphocytes Auto (Unsp spec) [#/Vol] 2.52 10*3/uL 0.83-4.51 [facility] Work Phone: Basophil percentageon 2021 Basophils/100 WBC (Bld) 0.6 % 0-1 [facility] Work Phone: Bilirubin [Mass/Vol] 1.00 mg/dL 0.20-1.00 [place] Work Phone: [phone] Comment on above: For patients on eltr ombopag therapy, use of Dimension [place] TBIL is not recommended. Chloride [Moles/Vol] 110 mmol/L 98-107 [place] Work Phone: Eosinophils/100 WBC (Bld) 2.7 % 0-5 [facility] Work Phone: Glucose [Mass/Vol] 106 mg/dL 74-106 [facility] Work Phone: Comment on above: Fasting Glucose resu lt from 100 to 125 mg/dL suggests IMPAIRED HOMEOSTASIS per A.D.A. criteria. Neutrophils (Bld) [#/Vol] 3.7 10*3/uL 2.0-7.7 [facility] Work Phone: Neutrophils/100 WBC (Bld) 52.4 % 47-70 [facility] Work Phone: Potassium [Moles/Vol] 3.9 mmol/L 3.5-5.1 [facility] Work Phone: Protein [Mass/Vol] 7.2 g/dL 6.4-8.2 [facility] Work Phone: Sodium [Moles/Vol] 138 mmol/L 136-145 [facility] Work Phone: WBC (Bld) [#/Vol] 7.0 10*3/uL 4.4-11.0 [facility] Work Phone: Blood erythrocytes count (nu mber/volume)on 05-21-2022 RBC (Bld) [#/Vol] 3.79 10*6/uL 4.2-5.4 [facility] Work Phone: Blood hemoglobin measurement (mass/volume)on 05-21-2022 Hemoglobin (Bld) [Mass/Vol] 10.4 g/dL 12.0-15.0 [facility] Work Phone: Blood lymphocytes/100 leukoc yteson 05-21-2022 Lymphocytes/100 WBC (Bld) 35.9 % 19-41 [facility] Work Phone: Blood monocytes/100 leukocyt eson 05-21-2022 Monocytes/100 WBC (Bld) 8.3 % 0-10 [facility] Work Phone: Blood platelet mean volumeon 05-21-2022 Platelet mean volume (Bld) [Entitic vol] 10.7 fL 6.2-12.0 [facility] Work Phone: Determination of erythrocyte mean corpuscular volume (MCV)on 05-21-2022 MCV (RBC) [Entitic vol] 86.8 fL 81-99 [facility] Work Phone: [phone] Hematocrit Auto (Bld) [Volum e fraction]on 05-21-2022 Hematocrit (Bld) [Volume fraction] 32.9 % 37-47 [facility] Work Phone: Laboratory - Chemistry and C hemistry - challengeon 05-21-2022 ALP [Catalytic activity/Vol] 150 U/L 45-117 [facility] Work Phone: ALT [Catalytic activity/Vol] 83 U/L 13-56 [facility] Work Phone: CO2 [Moles/Vol] 25.0 mmol/L 21.0-32.0 [facility] Work Phone: Globulin (S) [Mass/Vol] 4.8 g/dL 2.2-4.2 [facility] Work Phone: Urea nitrogen/Creatinine [Mass ratio] 9.5 mg/mg 10-20 [facility] Work Phone: Laboratory - Hematology and Cell countson 05-21-2022 Erythrocyte distribution width (RBC) [Entitic vol] 62.4 fL 35.1-43.9 [facility] Work Phone: Erythrocyte distribution width (RBC) [Ratio] 19.5 % 11.6-14.6 [facility] Work Phone: Immature granulocytes/100 WBC (Bld) 0.100 % 0.0-0.9 [facility] Work Phone: Comment on above: IG% - Immature Granu locytes (promyelocytes, myelocytes and metamyelocytes) > 1% indicates that a LEFT SHIFT is Present. MCH (RBC) [Entitic mass] 27.4 pg 27.0-32.0 [facility] Work Phone: Nucleated RBC/100 WBC (Bld) [Ratio] 0 % 0-5 [facility] Work Phone: MCHC Auto (RBC) [Mass/Vol]on 05-21-2022 MCHC (RBC) [Mass/Vol] 31.6 g/dL 32-36 [facility] Work Phone: No Panel Informationon 05-21 Estimated Creatinine Clearance Calc 64.78 ml/min [facility] Work Phone: Estimated GFR (MDRD) Amer 93 mL/min >60 [facility] Work Phone: Comment on above: GFR Calc Estimated GFR (MDRD) Non-Af Amer 77 mL/min >60 [facility] Work Phone: Comment on above: Non- GFR Calc Platelets bldon 05-21-2022 Platelets (Bld) [#/Vol] 74 10*3/uL 150-450 [facility] Work Phone: Serum or plasma albumin latrice urement (mass/volume)on 05-21-2022 Albumin [Mass/Vol] 2.4 g/dL 3.2-5.0 [facility] Work Phone: Serum or plasma albumin/glob ulin mass ratioon 05-21-2022 Albumin/Globulin [Mass ratio] 0.5 {ratio} 0.9-2.4 [facility] Work Phone: Serum or plasma calcium latrice urement (mass/volume)on 05-21-2022 Calcium [Mass/Vol] 8.7 mg/dL 8.5-10.1 [facility] Work Phone: Serum or plasma creatinine m easurement (mass/volume)on 05-21-2022 Creatinine [Mass/Vol] 0.84 mg/dL 0.55-1.02 [facility] Work Phone: Comment on above: The validity of the calculated GFR & GFRAA in patients over 70 years has not been determined. Clinical correlation is essential. Serum or plasma urea nitroge n measurement (mass/volume)on 05-21-2022 Urea nitrogen [Mass/Vol] 8 mg/dL 7-18 [facility] Work Phone: Thin prep Papanicolaou smear with manual screeningon 05-21-2022 Thin prep Papanicolaou smear with manual screening 240 U/L 15-37 [facility] Work Phone: Thin prep Papanicolaou smear with manual screening 3 5-15 [facility] Work Phone: Basophil percentageon 2021 Ammonia (P) [Moles/Vol] 61.0 umol/L 11-32 [facility] Work Phone: Absolute lymphocyte counton 05-19-2022 Lymphocytes Auto (Unsp spec) [#/Vol] 2.67 10*3/uL 0.83-4.51 [facility] Work Phone: [phone] Basophil percentageon 2021 Basophil percentage 3.1 mg/dL 2.5-4.9 [facility]: Basophil percentage 0-5 SEEN /hpf 0-5 [facility] Work Phone: Ammonia (P) [Moles/Vol] 83.0 umol/L 11-32 [facility] Work Phone: Basophils/100 WBC (Bld) 0.6 % 0-1 [facility] Work Phone: Bilirubin [Mass/Vol] 1.00 mg/dL 0.20-1.00 [place] Work Phone: Comment on above: For patients on eltr ombopag therapy, use of Dimension [place] TBIL is not recommended. Chloride [Moles/Vol] 112 mmol/L 98-107 [place] Work Phone: Eosinophils/100 WBC (Bld) 3.1 % 0-5 [facility] Work Phone: [phone] Glucose [Mass/Vol] 108 mg/dL 74-106 [facility] Work Phone: [phone] Comment on above: Fasting Glucose resu lt from 100 to 125 mg/dL suggests IMPAIRED HOMEOSTASIS per A.D.A. criteria. Neutrophils (Bld) [#/Vol] 4.2 10*3/uL 2.0-7.7 [facility] Work Phone: [phone] Neutrophils/100 WBC (Bld) 53.5 % 47-70 [facility] Work Phone: Potassium [Moles/Vol] 3.6 mmol/L 3.5-5.1 [facility] Work Phone: Protein [Mass/Vol] 7.9 g/dL 6.4-8.2 [facility] Work Phone: Sodium [Moles/Vol] 140 mmol/L 136-145 [facility] Work Phone: WBC (Bld) [#/Vol] 7.8 10*3/uL 4.4-11.0 [facility]: Bilirubin Test strip Ql (U)o n 05-19-2022 Bilirubin Ql (U) 1 mg/dL Negative [facility] Work Phone: Comment on above: COLOR OF URINE MAY A FFECT DIPSTICK RESULTS. Blood erythrocytes count (nu mber/volume)on 05-19-2022 RBC (Bld) [#/Vol] 4.06 10*6/uL 4.2-5.4 [facility] Work Phone: Blood hemoglobin measurement (mass/volume)on 05-19-2022 Hemoglobin (Bld) [Mass/Vol] 10.7 g/dL 12.0-15.0 [facility] Work Phone: Blood lymphocytes/100 leukoc yteson 05-19-2022 Lymphocytes/100 WBC (Bld) 34.4 % 19-41 [facility] Work Phone: Blood monocytes/100 leukocyt eson 05-19-2022 Monocytes/100 WBC (Bld) 8.1 % 0-10 [facility] Work Phone: Blood platelet mean volumeon 05-19-2022 Platelet mean volume (Bld) [Entitic vol] 11.4 fL 6.2-12.0 [facility] Work Phone: Calcium oxalate crystals det ection in urine sediment by light microscopyon 05-19-2022 Calcium oxalate crystals LM Ql (Urine sed) 1+ /hpf [facility] Work Phone: Determination of erythrocyte mean corpuscular volume (MCV)on 05-19-2022 MCV (RBC) [Entitic vol] 85.2 fL 81-99 [facility] Work Phone: Direct bilirubinon 2 Bilirubin.direct [Mass/Vol] 0.49 mg/dL 0.00-0.30 [facility] Work Phone: Hematocrit Auto (Bld) [Volum e fraction]on 05-19-2022 Hematocrit (Bld) [Volume fraction] 34.6 % 37-47 [facility] Work Phone: Hyaline casts LM.LPF (Urine sed) [#/Area]on 05-19-2022 Hyaline casts (Urine sed) [#/Area] 0 /[LPF] 0-5 [facility] Work Phone: INR in Blood by Coagulation assayon 05-19-2022 INR Coag (Bld) [Relative time] 1.5 {INR} [facility] Work Phone: Ketones Test strip Ql (U)on 05-19-2022 Ketones Ql (U) 5 mg/dl Negative [facility] Work Phone: Laboratory - Chemistry and C hemistry - challengeon 05-19-2022 Magnesium [Mass/Vol] 1.8 mg/dL 1.6-2.6 [place] Work Phone: ALP [Catalytic activity/Vol] 144 U/L 45-117 [facility] Work Phone: ALT [Catalytic activity/Vol] 63 U/L 13-56 [facility] Work Phone: CO2 [Moles/Vol] 20.0 mmol/L 21.0-32.0 [facility] Work Phone: Globulin (S) [Mass/Vol] 5.2 g/dL 2.2-4.2 [facility] Work Phone: Urea nitrogen/Creatinine [Mass ratio] 10.7 mg/mg 10-20 [facility] Work Phone: [phone] Laboratory - Coagulationon 0 05-19-2022 PT Coag (PPP) [Time] 17.5 s 11.7-14.9 [place] Work Phone: Laboratory - Drug toxicology on 05-19-2022 Amphetamines Ql (U) Positive <1000 ng/mL [place] Work Phone: Benzodiazepines Ql (U) Negative < 200 ng/mL [facility] Work Phone: Cannabinoids Screen Ql (U) Positive < 50 ng/mL [facility] Work Phone: Cocaine Ql (U) Negative < 300 ng/mL [facility] Work Phone: Opiates Ql (U) Negative < 300 ng/mL [facility] Work Phone: Laboratory - Hematology and Cell countson 05-19-2022 Erythrocyte distribution width (RBC) [Entitic vol] 60.3 fL 35.1-43.9 [facility] Work Phone: Erythrocyte distribution width (RBC) [Ratio] 19.5 % 11.6-14.6 [facility] Work Phone: Immature granulocytes/100 WBC (Bld) 0.300 % 0.0-0.9 [facility] Work Phone: Comment on above: IG% - Immature Granu locytes (promyelocytes, myelocytes and metamyelocytes) > 1% indicates that a LEFT SHIFT is Present. MCH (RBC) [Entitic mass] 26.4 pg 27.0-32.0 [facility] Work Phone: Nucleated RBC/100 WBC (Bld) [Ratio] 0 % 0-5 [facility] Work Phone: Laboratory - Microbiology an d Antimicrobial susceptibilityon 05-19-2022 SARS-CoV-2 (COVID-19) RNA PHYLLIS+probe Ql (Unsp spec) Not detected Not Detect [facility] Work Phone: Comment on above: Normal [...] 05-19-2022 MCHC (RBC) [Mass/Vol] 30.9 g/dL 32-36 [facility] Work Phone: Mucus LM Ql (Urine sed)on Mucus Ql (Urine sed) 0 SEEN /hpf [facility] Work Phone: Nitrite Test strip Ql (U)on 05-19-2022 Nitrite Ql (U) Negative Negative [facility] Work Phone: No Panel Informationon 05-19 MDMA (Ecstasy) Screen Positive < 500 ng/mL [facility] Work Phone: Urine Barbiturates Screen Negative < 200 ng/mL [facility] Work Phone: Urine Drug Screen Comment [facility] Work Phone: Comment on above: CONFIRMATORY [...] Methadone Screen Negative < 300 ng/mL [facility] Work Phone: Estimated Creatinine Clearance Calc 44.97 ml/min [facility] Work Phone: Estimated GFR (MDRD) Amer 61 mL/min >60 [facility] Work Phone: Comment on above: GFR Calc Estimated GFR (MDRD) Non-Af Amer 50 mL/min >60 [facility] Work Phone: Comment on above: Non- GFR Calc Platelets bldon 05-19-2022 Platelets (Bld) [#/Vol] 72 10*3/uL 150-450 [facility] Work Phone: Protein Test strip Ql (U)on 05-19-2022 Protein Ql (U) 30 mg/dl Negative [facility] Work Phone: Serum or plasma albumin latrice urement (mass/volume)on 05-19-2022 Albumin [Mass/Vol] 2.7 g/dL 3.2-5.0 [facility] Work Phone: Serum or plasma calcium latrice urement (mass/volume)on 05-19-2022 Calcium [Mass/Vol] 9.2 mg/dL 8.5-10.1 [facility] Work Phone: Serum or plasma creatinine m easurement (mass/volume)on 05-19-2022 Creatinine [Mass/Vol] 1.21 mg/dL 0.55-1.02 [facility] Work Phone: Comment on above: The validity of the calculated GFR & GFRAA in patients over 70 years has not been determined. Clinical correlation is essential. Serum or plasma urea nitroge n measurement (mass/volume)on 05-19-2022 Urea nitrogen [Mass/Vol] 13 mg/dL 7-18 [facility] Work Phone: Serum procalcitonin measurem enton 05-19-2022 Procalcitonin [Mass/Vol] 0.06 ng/mL 0.00-0.09 [facility] Work Phone: Comment on above: A [...] Ql (Urine sed) 0-5 SEEN /hpf 5-10 [facility] Work Phone: Thin prep Papanicolaou smear with manual screeningon 05-19-2022 Thin prep Papanicolaou smear with manual screening 140 U/L 15-37 [facility] Work Phone: Thin prep Papanicolaou smear with manual screening 8 5-15 [facility] Work Phone: Urine blood detectionon 04-27 RBC Ql (U) 250 /ul Negative [facility] Work Phone: RBC Ql (U) > 100 SEEN /hpf 0-5 [facility] Work Phone: Urine clarityon 05-19-2022 Clarity (U) Cloudy Clear [facility] Work Phone: Urine color determinationon 05-19-2022 Color (U) Mike Yellow [facility] Work Phone: Urine glucose detectionon Glucose Ql (U) Normal mg/dl Normal [facility] Work Phone: Urine leukocyte esterase det ection by dipstickon 05-19-2022 Leukocyte esterase Test strip Ql (U) 25 /ul Negative [facility] Work Phone: Urine pHon 05-19-2022 pH (U) 6.0 [pH] 5.0 - 8.0 [facility] Work Phone: Urine phencyclidine (PCP) de tectionon 05-19-2022 Phencyclidine Ql (U) Negative < 25 ng/mL [place] Work Phone: Urine sediment bacteria coun t by microscopy (number/high power field)on 05-19-2022 Bacteria LM.HPF (Urine sed) [#/Area] 0 /[HPF] None Seen [facility] Work Phone: Urine specific gravity measu rementon 05-19-2022 Specific gravity (U) [Rel density] 1.025 1.002-1.030 [facility] Work Phone: Urobilinogen Auto test strip Ql (U)on 05-19-2022 Urobilinogen Ql (U) 4 mg/dl Normal [facility] Work Phone: CBCon 08-04-2018 Erythrocyte distribution width Auto Ratio (RBC) 20.9 % High 11.5-15.0 [facility] Comment on above: Performed By: #### C NATALYA, PT ####[facility] [address] [place] [address] Hematocrit Auto Volume Fraction (Bld) 41.5 % Normal 36.0-46.0 [facility] Comment on above: Performed By: #### C NATALYA, PT ####[facility] [address] [place] [address] Hemoglobin mass conc (Bld) 13.0 g/dL Normal 11.5-15.5 [facility] Comment on above: Performed By: #### C NATALYA, PT ####[facility] [address] [place] [address] MCH Auto Entitic mass (RBC) 25.6 pG Low 26.0-34.0 [facility] Comment on above: Performed By: #### C NATALYA, PT ####[facility] [id number] [place] [address] MCHC Auto mass conc (RBC) 31.3 g/dL Normal 30.5-36.0 [facility] Comment on above: Performed By: #### C NATALYA, PT ####[facility] [id number] [place] [address] MCV Auto Entitic volume (RBC) 81.9 fL Normal 80.0-100.0 [facility] Comment on above: Performed By: #### C NATALYA, PT ####[facility] [address] [place] [address] Platelet mean volume Auto Entitic volume (Bld) 11.2 fL Normal 9.0-12.7 [facility] Comment on above: Performed By: #### C BC, PT ####[facility] [address] Platelets Auto #/vol (Bld) 227 10*3/uL Normal 150-400 [facility] Comment on above: Performed By: #### C BC, PT ####[facility] [address]jt[address] RBC Auto #/vol (Bld) 5.07 10*6/uL Normal 3.90-5.20 [facility] Comment on above: Performed By: #### C NATALYA, PT ####[facility] [address] WBC Auto #/vol (Bld) 7.53 10*3/uL Normal 3.70-11.00 [facility] Comment on above: Performed By: #### C NATALYA, PT ####[facility] [address] BIOPSY LIVERon 08-04-2018 CT BIOPSY LIVER * * *Final Report* * *DATE OF EXAM: Aug 04 2018 10:45AM [facility] 2017 - CT BIOPSY LIVER / REASON: [...] 04 2018 1:14PDictated by : JAMES STEVENSON MDThireno examination was interpreted and the report reviewed and electronically signed by: JAMES STEVENSON MD on Aug 04 2018 1:18PM [id number] CN [facility] PT EDon 08-04-2018 PT ED HNO ID: [id number]: Wendy StreetRnLONI Nicholeervice: NursingAuthor Type: Registered NurseType: Patient EducationFiled: 08/04/2018 12:25 PMNote Text:POST OP LEARNING RESPONSEINSTRUCTION PROVIDED TO: Patient and family memberMETHOD OF INSTRUCTION: Written instruction - handoutsVerbal instructionPATIENT / FAMILY RESPONSE: Information received as demonstrated byinterest and questionsFOLLOW-UP PLAN: Patient instructed to call with any further issuesSUPPLEMENTAL MATERIAL: NoneREFERRAL (RECOMMENDATION): NoneElectronically Signed By: Wendy Kuo RN In Department: [facility] PT ED HNO ID: [id number]: LONI Sims Rnervice: NursingAuthor Type: Registered NurseType: Patient EducationFiled: 08/04/2018 9:32 AMNote Text:PRE OP LEARNING ASSESSMENTPROCEDURE/WILMAR AUGUST: SURGERY: needle biopsy of liverREADINESS TO LEARNCOGNITIVE ABILITY: Alert and orientedMOTIVATION TO LEARN: EagerFAMILY SUPPORT: High - Very involved in pt carePATIENT LEARNS BEST BY: Written Instruction - Hand-outsVerbal InstructionFACTORS AFFECTING LEARNING: NonePHYSICAL LIMITATIONS AFFECTING LEARNING: NoneElectronically Signed By: Anderson Uribe RN In [facility] Protimeon 08-04-2018 INR Coag RelTime (Bld) 1.1 {INR} Normal 0.9-1.3 [facility] Comment on above: Result Comment: Roma min K Antagonist (VKA) Therapeutic Range: INR 2 to 3 (Target INR of 2.5)Note: For patients treated with VKA drugs, such as warfarin, the [place] [employer] 2012 Guideline recommends [...] al. Chest 2012, 141:7S-47SNishimura RA, et al. JACC 2017, 70: 252-289 Performed By: #### C BC, PT ####[facility] [id number] [place] [id number] PT Sec 11.3 sec Normal 9.7-13.0 [facility] Comment on above: Performed By: #### C BC, PT ####[facility] [address] [place] [address] SURGICAL PATHOLOGYon 018 SURGICAL PATHOLOGY [facility]: [id number] Physician: JAMES STEVENSON MD FINAL DIAGNOSISLiver, random [...] formalin in one cassette.Gross examination performed at [facility], [address] [place] [id number] 08/04/2018 3:15:16 PMPatient ID #: [id number] of Report: 08/08/2018Date of Procedure: 08/04/2018Date of Receipt: 08/04/2018Submitted by: JAMES STEVENSON MDLocation: MERADDiagnostic interpretation performed at [place] [address]. [facility] Comment on above: Performed By: #### P ATHS ####[facility] [address] [place], [place] [phone] HOSPon 07-25-2018 HOSP Patient:Carolina Hightower TMRN: Height:5' 2.008"(1.575 m)Weight:214 lb 1.1 oz (97.1 kg)Outpatient Medications [...] LowHEMA* 41.5 % 08/04/2018 46.0 36.0Progress Notes ([facility]Macie Acevedo RN APRN.TRAVELING PASSENGER AGENT 07/19/2018 11:53 AM SignedPlease call the patient for an appointment with me so that we can discuss whatis needed in order to proceed with hep C treatment. then, we can get thenecessary things on order for her. Not urgent, so wherever booking. thanks.Macie Acevedo RN APRN.Christina Elizabeth 07/24/2018 3:36 PM SignedLM for pt to call office and schedule.Love Pearce 07/25/2018 2:16 PM SignedPatient called back and has been scheduled with Macie Acevedo for Kpzlds08/3/18 @ 9:40am, she confirmed this date and time.Love Stokes PsrProgress Notes ([facility]):Mervin Ambrocio APRN.CNP 07/14/2018 1:26 PM SignedChief ComplaintPatient presents with:F/U 1 monthHPILaura Nash Hightower is a 42 year old female who presents here today for AboveComplaints.patient presents to the office today for one-month follow-up for labs. Patientwas in office last month after having elevated liver enzymes. Subsequently ahepatitis panel showed that she has hepatitis C. she also had increasedsymptoms of reflux. We increased her Protonix to 40 mg twice a day.She wasreferred to Dr. Garcia in [place]. has hepatitis C genotype 1A. completeblood count showed slight anemia with elevated TIBC levels. Normal thyroidfunction, elevated glucose with a hemoglobin A1c of 6.0. she has had aultrasound of the right upper quadrant in the past that showed fatty liverdisease. it looks like she will be getting a CT-guided liver biopsy in [facility] for this hepatitis workup. With follow-up locally [...] 30.7Abs Lymph 1.00 - 4.00 k/uL 4.04 (H)Dickenson% % 9.9Abs Dickenson <0.87 k/uL 1.30 (H)Eosin% % 1.8Abs Eosin [...] her a handout for diabetes diet.- HGB U1Pqrdgyo-am in 3 months with labs prior.Mervin Ambrocio, HEAT TREAT [email or web address].[email or web address] Ambrocio APRN.DEEPIKA 07/14/2018 1:07 PM SignedPlease schedule your CT guided biopsy of the liver Normal [facility] Culture, urine Bacteria identified Cx Nom (U) Mixed Gram Pos & Gram Neg Org [facility] Work Phone: Laboratory - Microbiology an d Antimicrobial susceptibility Respiratory pathogens DNA and RNA 12b panel PHYLLIS+probe (Unsp spec) [facility] Work Phone: No Panel Information Respiratory Panel (PCR) [facility] Work Phone: Vital Signs Date Time Vital Sign Value Performing Clinician Facility 07-25-2025 13:25-0400 Body height 157.48 cm Zebulun Beam [employer] CA[employer]ING MACHINE OPERATOR-C Work Phone: 0(181)216-040266 [place] [address] 07-25-2025 13:25-0400 Body mass index (BMI) [Ratio] 38.2 kg/m2 Zebulun Beam [employer]IFUGAL CASTING MACHINE OPERATOR-C Work Phone: 7(699)805-565866 [place] [address] 07-25-2025 13:25-0400 Body weight 94.91 kg Zebulun Beam [employer]IFUG[employer] CASTING MACHINE OPERATOR-C Work Phone: 3(914)396-998066 [place] [address] 07-25-2025 13:25-0400 Body weight 94.8 kg Zebulun Beam [employer]IFUG[employer] CASTING MACHINE OPERATOR-C Work Phone: 5(541)529-001766 [place] [address] 07-25-2025 13:25-0400 Diastolic blood pressure 72 mm[Hg] Zebulun Beam [employer]IFUGAL CASTING MACHINE OPERATOR-C Work Phone: 8(190)083-348466 [place] [address] 07-25-2025 13:25-0400 Heart rate 72 /min Zebulun Beam [employer]IFUGAL CASTING MACHINE OPERATOR-C Work Phone: 5(495)816-486366 [place] [address] 07-25-2025 13:25-0400 SaO2% (BldA) [Mass fraction] 97 % Zebulun Beam [employer]IFUGAL CASTING MACHINE OPERATOR-C Work Phone: 5(771)542-667566 [place] [address] 07-25-2025 13:25-0400 Systolic blood pressure 113 mm[Hg] Zebulun Beam [employer]IFUGAL CASTING MACHINE OPERATOR-C Work Phone: 2(602)649-801466 [place] [address] 07-15-2025 16:12-0400 Body temperature 97.6 [degF] Zebulun Beam [employer]IFUGAL CASTING MACHINE OPERATOR-C Work Phone: 7(289)340-379366 [place] [address] 07-15-2025 16:12-0400 Diastolic blood pressure 70 mm[Hg] Zebulun Beam C[employer]TRIFUGAL CASTING MACHINE OPERATOR-C Work Phone: 4(022)235-352066 [place] [address] 07-15-2025 16:12-0400 Heart rate 86 /min Zebulun Beam C[employer]TRIFUGAL CASTING MACHINE OPERATOR-C Work Phone: 9(378)699-080866 [place] [address] 07-15-2025 16:12-0400 Respiratory rate 18 /min Zebulun Beam C[employer]IFUGAL CASTING MACHINE OPERATOR-C Work Phone: 4(296)934-805066 [place] [address] 07-15-2025 16:12-0400 SaO2% (BldA) [Mass fraction] 100 % Zebulun Beam [employer]IFUGAL CASTING MACHINE OPERATOR-C Work Phone: 9(025)265-586666 [place] [address] 07-15-2025 16:12-0400 Systolic blood pressure 115 mm[Hg] Zebulun Beam C[employer]TRIFUGAL CASTING MACHINE OPERATOR-C Work Phone: 4(753)891-517366 [place] [address] 07-15-2025 14:34-0400 Body height 157.48 cm Zebulun Beam CENTRIFUGAL CASTING MACHINE OPERATOR-C Work Phone: 5(740)799-854166 [place] [address] 07-15-2025 14:34-0400 Body mass index (BMI) [Ratio] 35.9 kg/m2 Zebulun Beam C[employer]TRIFUGAL CASTING MACHINE OPERATOR-C Work Phone: 9(683)173-256166 [place] [address] 07-15-2025 14:34-0400 Body weight 89.08 kg Zebulun Beam [employer]IFUGAL CASTING MACHINE OPERATOR-C Work Phone: 9(977)383-311566 [place] [address] 07-11-2025 12:23-0400 Body temperature 97.9 [degF] Zebulun Beam C[employer]TRIFUGAL CASTING MACHINE OPERATOR-C Work Phone: 9(599)444-145466 [place] [address] 07-11-2025 12:23-0400 Diastolic blood pressure 77 mm[Hg] Zebulun Beam CENTRIFUGAL CASTING MACHINE OPERATOR-C Work Phone: 0(367)561-738966 [place] [address] 07-11-2025 12:23-0400 Heart rate 81 /min Zebulun Beam C[employer]IFUGAL CASTING MACHINE OPERATOR-C Work Phone: 4(105)345-325066 [place] [address] 07-11-2025 12:23-0400 Respiratory rate 16 /min Zebulun Beam C[employer]TRIFUGAL CASTING MACHINE OPERATOR-C Work Phone: 5(648)912-354666 [place] [address] 07-11-2025 12:23-0400 SaO2% (BldA) [Mass fraction] 99 % Zebulun Beam CENTRIFUGAL CASTING MACHINE OPERATOR-C Work Phone: 4(097)087-984466 [place] [address] 07-11-2025 12:23-0400 Systolic blood pressure 124 mm[Hg] Zebulun Beam CENTRIFUGAL CASTING MACHINE OPERATOR-C Work Phone: 1(821)473-332266 [place] [address] 07-11-2025 08:41-0400 Body mass index (BMI) [Ratio] 35 kg/m2 Zebulun Beam CENTRIFUGAL CASTING MACHINE OPERATOR-C Work Phone: 7(096)611-510266 [place] [address] 07-11-2025 08:41-0400 Body weight 86.9 kg Zebulun Beam C[employer]TRIFUGAL CASTING MACHINE OPERATOR-C Work Phone: 2(675)166-575266 [place] [address] 05-15-2025 15:38-0400 Body height 157.48 cm [facility] Work Phone: 0(050)500-168066 [place] [address] 05-15-2025 15:38-0400 Body mass index (BMI) [Ratio] 33.5 kg/m2 [facility] Work Phone: 5(775)249-626066 [place] [address] 05-15-2025 15:38-0400 Body weight 83 kg [facility] Work Phone: 2(804)099-114366 [place] [address] 05-15-2025 15:38-0400 Diastolic blood pressure 76 mm[Hg] [facility] Work Phone: 2(139)701-087966 [place] [address] 05-15-2025 15:38-0400 Heart rate 98 /min [facility] Work Phone: 9(854)923-003866 [place] [address] 05-15-2025 15:38-0400 SaO2% (BldA) [Mass fraction] 99 % [facility] Work Phone: 6(627)530-297666 [place] [address] 05-15-2025 15:38-0400 Systolic blood pressure 137 mm[Hg] [facility] Work Phone: 9(342)099-250466 [place] [address] 03-15-2025 13:45-0400 Body temperature 97.5 [degF] [facility] Work Phone: 9(517)376-500766 [place] [address] 03-15-2025 13:45-0400 Diastolic blood pressure 60 mm[Hg] [facility] Work Phone: 7(208)068-597666 [place] [address] 03-15-2025 13:45-0400 Heart rate 58 /min [facility] Work Phone: 1(091)542-300266 [place] [address] 03-15-2025 13:45-0400 Respiratory rate 16 /min [facility] Work Phone: 3(978)737-522466 [place] [address] 03-15-2025 13:45-0400 SaO2% (BldA) [Mass fraction] 96 % [facility] Work Phone: 6(869)457-276566 [place] [address] 03-15-2025 13:45-0400 Systolic blood pressure 100 mm[Hg] [facility] Work Phone: 1(441)912-775566 [place] [address] 03-15-2025 11:50-0400 Body height 157.48 cm [facility] Work Phone: 9(238)293-119266 [place] [address] 03-15-2025 11:50-0400 Body mass index (BMI) [Ratio] 33.5 kg/m2 [facility] Work Phone: 5(808)995-917466 [place] [address] 03-15-2025 11:50-0400 Body weight 83.2 kg [facility] Work Phone: 2(196)965-872666 [place] [address] 02-26-2025 21:40-0400 Body temperature 97.9 [degF] [facility] Work Phone: 0(596)766-524666 [place] [address] 02-26-2025 21:40-0400 Diastolic blood pressure 85 mm[Hg] [facility] Work Phone: 3(436)335-564966 [place] [address] 02-26-2025 21:40-0400 Heart rate 64 /min [facility] Work Phone: 9(915)866-241166 [place] [address] 02-26-2025 21:40-0400 Respiratory rate 18 /min [facility] Work Phone: 1(217)946-375266 [place] [address] 02-26-2025 21:40-0400 SaO2% (BldA) [Mass fraction] 99 % [facility] Work Phone: 2(253)601-389966 [place] [address] 02-26-2025 21:40-0400 Systolic blood pressure 135 mm[Hg] [facility] Work Phone: 1(875)443-979466 [place] [address] 02-26-2025 20:33-0400 Body height 157.48 cm [facility] Work Phone: 2(232)575-113566 [place] [address] 02-26-2025 20:33-0400 Body mass index (BMI) [Ratio] 36.6 kg/m2 [facility] Work Phone: 6(207)519-390266 [place] [address] 02-26-2025 20:33-0400 Body weight 90.7 kg [facility] Work Phone: 6(700)479-846866 [place] [address] 02-22-2025 04:34-0400 Body temperature 98.5 [degF] [facility] Work Phone: 1(349)223-833766 [place] [address] 02-22-2025 04:34-0400 Diastolic blood pressure 61 mm[Hg] [facility] Work Phone: 4(045)344-624866 [place] [address] 02-22-2025 04:34-0400 Heart rate 64 /min [facility] Work Phone: 3(171)568-415966 [place] [address] 02-22-2025 04:34-0400 Respiratory rate 16 /min [facility] Work Phone: 8(656)664-178266 [place] [address] 02-22-2025 04:34-0400 SaO2% (BldA) [Mass fraction] 98 % [facility] Work Phone: 9(697)183-152066 [place] [address] 02-22-2025 04:34-0400 Systolic blood pressure 104 mm[Hg] [facility] Work Phone: 1(410)811-532366 [place] [address] 02-21-2025 22:34-0400 Body height 157.48 cm [facility] Work Phone: 2(509)823-637566 [place] [address] 02-21-2025 22:34-0400 Body mass index (BMI) [Ratio] 35.6 kg/m2 [facility] Work Phone: 1(591)431-826266 [place] [address] 02-21-2025 22:34-0400 Body weight 88.45 kg [facility] Work Phone: 9(591)306-098366 [place] [address] 02-08-2025 13:33-0400 Body temperature 98.7 [degF] [facility] Work Phone: 2(340)890-279866 [place] [address] 02-08-2025 13:33-0400 Diastolic blood pressure 80 mm[Hg] [facility] Work Phone: 7(221)254-518966 [place] [address] 02-08-2025 13:33-0400 Heart rate 51 /min [facility] Work Phone: 3(898)473-835066 [place] [address] 02-08-2025 13:33-0400 Respiratory rate 16 /min [facility] Work Phone: 0(141)120-481866 [place] [address] 02-08-2025 13:33-0400 SaO2% (BldA) [Mass fraction] 100 % [facility] Work Phone: 2(025)297-755266 [place] [address] 02-08-2025 13:33-0400 Systolic blood pressure 117 mm[Hg] [facility] Work Phone: 4(479)688-275666 [place] [address] 02-08-2025 11:16-0400 Body height 157.48 cm [facility] Work Phone: 4(054)721-141866 [place] [address] 02-08-2025 11:16-0400 Body mass index (BMI) [Ratio] 33.7 kg/m2 [facility] Work Phone: 9(074)680-093266 [place] [address] 02-08-2025 11:16-0400 Body weight 83.6 kg [facility] Work Phone: 9(186)598-385966 [place] [address] 02-04-2025 16:07-0400 Body temperature 98 [degF] [facility] Work Phone: 5(543)712-430866 [place] [address] 02-04-2025 16:07-0400 Diastolic blood pressure 100 mm[Hg] [facility] Work Phone: 1(410)126-225466 [place] [address] 02-04-2025 16:07-0400 Heart rate 78 /min [facility] Work Phone: 0(049)723-429666 [place] [address] 02-04-2025 16:07-0400 Respiratory rate 18 /min [facility] Work Phone: 1(821)179-058866 [place] [address] 02-04-2025 16:07-0400 SaO2% (BldA) [Mass fraction] 99 % [facility] Work Phone: 4(547)104-454866 [place] [address] 02-04-2025 16:07-0400 Systolic blood pressure 134 mm[Hg] [facility] Work Phone: 3(551)360-619266 [place] [address] 02-04-2025 10:58-0400 Body height 157.48 cm [facility] Work Phone: 1(488)864-348866 [place] [address] 02-04-2025 10:58-0400 Body mass index (BMI) [Ratio] 50.8 kg/m2 [facility] Work Phone: 4(699)298-787366 [place] [address] 02-04-2025 10:58-0400 Body weight 126.09 kg [facility] Work Phone: 0(859)090-738066 [place] [address] 01-18-2025 15:18-0400 Body mass index (BMI) [Ratio] 34 kg/m2 [facility] Work Phone: 4(977)003-039566 [place] [address] 01-18-2025 15:18-0400 Body weight 84.36 kg [facility] Work Phone: 5(283)334-888766 [place] [address] 01-18-2025 15:18-0400 Diastolic blood pressure 66 mm[Hg] [facility] Work Phone: 7(133)057-684066 [place] [address] 01-18-2025 15:18-0400 Heart rate 68 /min [facility] Work Phone: 7(203)757-393366 [place] [address] 01-18-2025 15:18-0400 Respiratory rate 16 /min [facility] Work Phone: 2(559)211-678966 [place] [address] 01-18-2025 15:18-0400 SaO2% (BldA) [Mass fraction] 95 % [facility] Work Phone: 3(894)418-069666 [place] [address] 01-18-2025 15:18-0400 Systolic blood pressure 109 mm[Hg] [facility] Work Phone: 2(809)156-746466 [place] [address] 01-17-2025 17:59-0400 Diastolic Blood Pressure Non-Invasive 57 mm[Hg] DR BROOKLYN MIKE MD [facility] 01-17-2025 17:59-0400 Heart rate 60 /min DR BROOKLYN MIKE MD [facility] 01-17-2025 17:59-0400 Respiratory rate 18 /min DR BROOKLYN MIKE MD [address] 01-17-2025 17:59-0400 Systolic Blood Pressure Non-Invasive 101 mm[Hg] DR BROOKLYN MIKE MD [address] [place] [address] 01-17-2025 15:18-0400 Diastolic Blood Pressure Non-Invasive 57 mm[Hg] DR BROOKLYN MIKE MD [address] [place] [address] 01-17-2025 15:18-0400 Heart rate 57 /min DR BROOKLYN MIKE MD [address] [place] [address] 01-17-2025 15:18-0400 Respiratory rate 16 /min DR BROOKLYN MIKE MD [address] 01-17-2025 15:18-0400 Systolic Blood Pressure Non-Invasive 96 mm[Hg] DR BROOKLYN MIKE MD [address] [place] [address] 01-17-2025 14:05-0400 Diastolic Blood Pressure Non-Invasive 64 mm[Hg] DR BROOKLYN MIKE MD [address] [place] [address] 01-17-2025 14:05-0400 Heart rate 56 /min DR BROOKLYN MIKE MD [address] [place] [address] 01-17-2025 14:05-0400 Respiratory rate 13 /min DR BROOKLYN MIKE MD [address] [place] [address] 01-17-2025 14:05-0400 Systolic Blood Pressure Non-Invasive 104 mm[Hg] DR BROOKLYN MIKE MD [address] [place] [address] 01-17-2025 12:30-0400 Body temperature 97.52 [degF] DR BROOKLYN MIKE MD [address] [place] [address] 01-17-2025 12:30-0400 Body weight [address] BROOKLYN MIKE MD [facility] 12-13-2024 11:08-0400 Body temperature 98.49 [degF] Dalkeith Krunal DO Work Phone: [facility] 12-13-2024 11:08-0400 Diastolic blood pressure 70 mm[Hg] Dalkeith Krunal DO Work Phone: [facility] 12-13-2024 11:08-0400 Heart rate 61 /min Dalkeith Krunal DO Work Phone: [facility] 12-13-2024 11:08-0400 Respiratory rate 18 /min Dalkeith Krunal DO Work Phone: [facility] 12-13-2024 11:08-0400 SaO2% (BldA) [Mass fraction] 97 % Dalkeith Krunal DO Work Phone: [facility] 12-13-2024 11:08-0400 Systolic blood pressure 107 mm[Hg] Dalkeith Krunal DO Work Phone: [facility] 12-13-2024 04:10-0400 Body mass index (BMI) [Ratio] 33.32 kg/m2 Dalkeith Krunal DO Work Phone: [facility] 12-13-2024 04:10-0400 Body weight 82.64 kg Dalkeith Krunal DO Work Phone: [facility] 12-10-2024 01:15-0400 Body height 157.5 cm Dalkeith Krunal DO Work Phone: [facility] 12-06-2024 10:26-0400 Diastolic blood pressure 77 mm[Hg] Max Rico MD Work Phone: [facility] 12-06-2024 10:26-0400 Heart rate 67 /min Max Rico MD Work Phone: [facility] 12-06-2024 10:26-0400 Respiratory rate 18 /min Max Rico MD Work Phone: [facility] 12-06-2024 10:26-0400 SaO2% (BldA) [Mass fraction] 100 % Max Rico MD Work Phone: [facility] 12-06-2024 10:26-0400 Systolic blood pressure 130 mm[Hg] Max Rico MD Work Phone: [facility] 11-28-2024 10:17-0500 Diastolic blood pressure 70 mm[Hg] Minda Gómez MD Work Phone: [facility] 11-28-2024 10:17-0500 Heart rate 63 /min Minda Gómez MD Work Phone: [facility] 11-28-2024 10:17-0500 Respiratory rate 18 /min Minda Gómez MD Work Phone: [facility] 11-28-2024 10:17-0500 SaO2% (BldA) [Mass fraction] 98 % Minda Gómez MD Work Phone: [facility] 11-28-2024 10:17-0500 Systolic blood pressure 112 mm[Hg] Minda Gómez MD Work Phone: [facility] 11-19-2024 14:47-0500 Body height 157.5 cm Lambert Christie DO Work Phone: [facility] 11-19-2024 14:47-0500 Body mass index (BMI) [Ratio] 33.82 kg/m2 Lambert Christie DO Work Phone: [facility] 11-19-2024 14:47-0500 Body temperature 98.49 [degF] Lambert Christie DO Work Phone: [facility] 11-19-2024 14:47-0500 Body weight 83.87 kg Lambert Christie DO Work Phone: [facility] 11-19-2024 14:47-0500 Diastolic blood pressure 70 mm[Hg] Lambert Christie DO Work Phone: [facility] 11-19-2024 14:47-0500 Heart rate 70 /min Lambert Christie DO Work Phone: [facility] 11-19-2024 14:47-0500 Respiratory rate 18 /min Lambert Christie DO Work Phone: [facility] 11-19-2024 14:47-0500 SaO2% (BldA) [Mass fraction] 97 % Lambert Christie DO Work Phone: [facility] 11-19-2024 14:47-0500 Systolic blood pressure 117 mm[Hg] Lambert Christie DO Work Phone: [facility] 10-30-2024 08:25-0500 Diastolic blood pressure 82 mm[Hg] Minda Gómez MD Work Phone: [facility] 10-30-2024 08:25-0500 Heart rate 70 /min Minda Gómez MD Work Phone: [facility] 10-30-2024 08:25-0500 Respiratory rate 18 /min Minda Gómez MD Work Phone: [facility] 10-30-2024 08:25-0500 SaO2% (BldA) [Mass fraction] 100 % Minda Gómez MD Work Phone: [facility] 10-30-2024 08:25-0500 Systolic blood pressure 133 mm[Hg] Minda Gómez MD Work Phone: [facility] 10-18-2024 14:09-0500 Diastolic blood pressure 62 mm[Hg] Ginger Milton MD Work Phone: [facility] 10-18-2024 14:09-0500 Heart rate 59 /min Ginger Milton MD Work Phone: [facility] 10-18-2024 14:09-0500 Respiratory rate 18 /min Ginger Milton MD Work Phone: [facility] 10-18-2024 14:09-0500 SaO2% (BldA) [Mass fraction] 99 % Ginger Milton MD Work Phone: [facility] 10-18-2024 14:09-0500 Systolic blood pressure 101 mm[Hg] iGnger Milton MD Work Phone: [facility] 10-04-2024 11:06-0500 Diastolic blood pressure 65 mm[Hg] Pete Ponce MD Work Phone: [facility] 10-04-2024 11:06-0500 Heart rate 57 /min Pete Ponce MD Work Phone: [facility] 10-04-2024 11:06-0500 Respiratory rate 18 /min Pete Ponce MD Work Phone: [facility] 10-04-2024 11:06-0500 SaO2% (BldA) [Mass fraction] 99 % Pete Ponce MD Work Phone: [facility] 10-04-2024 11:06-0500 Systolic blood pressure 114 mm[Hg] Pete Ponce MD Work Phone: [facility] 10-04-2024 08:15-0500 Body height 157.5 cm Pete Ponce MD Work Phone: [facility] 10-04-2024 08:15-0500 Body mass index (BMI) [Ratio] 32.98 kg/m2 Pete Ponce MD Work Phone: [facility] 10-04-2024 08:15-0500 Body temperature 98.2 [degF] Pete Ponce MD Work Phone: [facility] 10-04-2024 08:15-0500 Body weight 81.78 kg Pete Ponce MD Work Phone: [facility] 10-03-2024 10:22-0500 Diastolic blood pressure 76 mm[Hg] Max Rico MD Work Phone: [facility] 10-03-2024 10:22-0500 Heart rate 63 /min Max Rico MD Work Phone: [facility] 10-03-2024 10:22-0500 SaO2% (BldA) [Mass fraction] 99 % Max Rico MD Work Phone: [facility] 10-03-2024 10:22-0500 Systolic blood pressure 117 mm[Hg] Max Rico MD Work Phone: [facility] 10-03-2024 10:22-0500 Respiratory rate 16 /min Max Rico MD Work Phone: [facility] 09-28-2024 13:38-0500 Diastolic blood pressure 57 mm[Hg] Pete Ponce MD Work Phone: [facility] 09-28-2024 13:38-0500 Systolic blood pressure 110 mm[Hg] Pete Ponce MD Work Phone: [facility] 09-28-2024 12:41-0500 Heart rate 61 /min Pete Ponce MD Work Phone: [facility] 09-28-2024 12:41-0500 Respiratory rate 18 /min Pete Ponce MD Work Phone: [facility] 09-28-2024 12:41-0500 SaO2% (BldA) [Mass fraction] 100 % Pete Ponce MD Work Phone: [facility] 09-28-2024 10:48-0500 Body mass index (BMI) [Ratio] 32.65 kg/m2 Pete Ponce MD Work Phone: [facility] 09-28-2024 10:48-0500 Body temperature 98.2 [degF] Pete Ponce MD Work Phone: [facility] 09-28-2024 10:48-0500 Body weight 80.97 kg Pete Ponce MD Work Phone: [facility] 09-27-2024 10:31-0500 Diastolic blood pressure 73 mm[Hg] Ginger Milton MD Work Phone: [facility] 09-27-2024 10:31-0500 Heart rate 68 /min Ginger Milton MD Work Phone: [facility] 09-27-2024 10:31-0500 SaO2% (BldA) [Mass fraction] 100 % Ginger Milton MD Work Phone: [facility] 09-27-2024 10:31-0500 Systolic blood pressure 116 mm[Hg] Ginger Milton MD Work Phone: [facility] 09-20-2024 11:10-0500 Diastolic blood pressure 65 mm[Hg] Minda Gómez MD Work Phone: [facility] 09-20-2024 11:10-0500 Heart rate 57 /min Minda Gómez MD Work Phone: [facility] 09-20-2024 11:10-0500 SaO2% (BldA) [Mass fraction] 100 % Minda Gómez MD Work Phone: [facility] 09-20-2024 11:10-0500 Systolic blood pressure 101 mm[Hg] Minda Gómez MD Work Phone: [facility] 09-20-2024 11:05-0500 Respiratory rate 16 /min Minda Gómez MD Work Phone: [facility] 09-13-2024 14:53-0500 Diastolic blood pressure 82 mm[Hg] Max Rico MD Work Phone: [facility] 09-13-2024 14:53-0500 Heart rate 59 /min Max Rico MD Work Phone: [facility] 09-13-2024 14:53-0500 SaO2% (BldA) [Mass fraction] 99 % Max Rico MD Work Phone: [facility] 09-13-2024 14:53-0500 Systolic blood pressure 126 mm[Hg] Max Rico MD Work Phone: [facility] 08-30-2024 14:26-0500 Diastolic blood pressure 85 mm[Hg] Minda Gómez MD Work Phone: [facility] 08-30-2024 14:26-0500 Heart rate 64 /min Minda Gómez MD Work Phone: [facility] 08-30-2024 14:26-0500 SaO2% (BldA) [Mass fraction] 99 % Minda Gómez MD Work Phone: [facility] 08-30-2024 14:26-0500 Systolic blood pressure 139 mm[Hg] Minda Gómez MD Work Phone: [facility] 08-30-2024 14:26-0500 Respiratory rate 16 /min Minda Gómez MD Work Phone: [facility] 08-22-2024 13:19-0500 Diastolic blood pressure 58 mm[Hg] Max Rico MD Work Phone: [facility] 08-22-2024 13:19-0500 Heart rate 73 /min Max Rico MD Work Phone: [facility] 08-22-2024 13:19-0500 Respiratory rate 16 /min Max Rico MD Work Phone: [facility] 08-22-2024 13:19-0500 SaO2% (BldA) [Mass fraction] 98 % Max Rico MD Work Phone: [facility] 08-22-2024 13:19-0500 Systolic blood pressure 105 mm[Hg] Max Rico MD Work Phone: [facility] 08-16-2024 14:02-0500 Diastolic blood pressure 75 mm[Hg] Ginger Milton MD Work Phone: [facility] 08-16-2024 14:02-0500 Heart rate 70 /min Ginger Milton MD Work Phone: [facility] 08-16-2024 14:02-0500 SaO2% (BldA) [Mass fraction] 98 % Ginger Milton MD Work Phone: [facility] 08-16-2024 14:02-0500 Systolic blood pressure 122 mm[Hg] Ginger Milton MD Work Phone: [facility] 08-16-2024 13:24-0500 Respiratory rate 16 /min Ginger Milton MD Work Phone: [facility] 08-09-2024 14:21-0500 Diastolic blood pressure 63 mm[Hg] Minda Gómez MD Work Phone: [facility] 08-09-2024 14:21-0500 Heart rate 75 /min Minda Gómez MD Work Phone: [facility] 08-09-2024 14:21-0500 Respiratory rate 18 /min Minda Gómez MD Work Phone: [facility] 08-09-2024 14:21-0500 SaO2% (BldA) [Mass fraction] 97 % Minda Gómez MD Work Phone: [facility] 08-09-2024 14:21-0500 Systolic blood pressure 114 mm[Hg] Minda Gómez MD Work Phone: [facility] 08-02-2024 15:43-0500 Diastolic blood pressure 65 mm[Hg] Ginger Milton MD Work Phone: [facility] 08-02-2024 15:43-0500 Heart rate 72 /min Ginger Milton MD Work Phone: [facility] 08-02-2024 15:43-0500 SaO2% (BldA) [Mass fraction] 99 % Ginger Milton MD Work Phone: [facility] 08-02-2024 15:43-0500 Systolic blood pressure 109 mm[Hg] Ginger Milton MD Work Phone: [facility] 07-26-2024 17:07-0400 Diastolic blood pressure 83 mm[Hg] Pete Ponce MD Work Phone: [facility] 07-26-2024 17:07-0400 Respiratory rate 16 /min Pete Ponce MD Work Phone: [facility] 07-26-2024 17:07-0400 SaO2% (BldA) [Mass fraction] 100 % Pete Ponce MD Work Phone: [facility] 07-26-2024 17:07-0400 Systolic blood pressure 121 mm[Hg] Pete Ponce MD Work Phone: [facility] 07-26-2024 16:48-0400 Heart rate 58 /min Pete Ponce MD Work Phone: [facility] 07-26-2024 10:43-0400 Body height 157.5 cm Pete Ponce MD Work Phone: [facility] 07-26-2024 10:43-0400 Body mass index (BMI) [Ratio] 32.9 kg/m2 Pete Ponce MD Work Phone: [facility] 07-26-2024 10:43-0400 Body temperature 98.71 [degF] Pete Ponce MD Work Phone: [facility] 07-26-2024 10:43-0400 Body weight 81.6 kg Pete Ponce MD Work Phone: [facility] 07-19-2024 17:11-0400 Diastolic blood pressure 68 mm[Hg] Minda Gómez MD Work Phone: [facility] 07-19-2024 17:11-0400 Heart rate 74 /min Minda Gómez MD Work Phone: [facility] 07-19-2024 17:11-0400 SaO2% (BldA) [Mass fraction] 99 % Minda Gómez MD Work Phone: [facility] 07-19-2024 17:11-0400 Systolic blood pressure 116 mm[Hg] Minda Gómez MD Work Phone: [facility] 07-19-2024 16:03-0400 Respiratory rate 14 /min Minda Gómez MD Work Phone: [facility] 07-10-2024 07:25-0400 Body temperature 99 [degF] Lambert Christie DO Work Phone: [facility] 07-10-2024 07:25-0400 Diastolic blood pressure 73 mm[Hg] Lambert Christie DO Work Phone: [facility] 07-10-2024 07:25-0400 Heart rate 69 /min Lambert Christie DO Work Phone: [facility] 07-10-2024 07:25-0400 SaO2% (BldA) [Mass fraction] 100 % Lambert Christie DO Work Phone: [facility] 07-10-2024 07:25-0400 Systolic blood pressure 133 mm[Hg] Lambert Christie DO Work Phone: [facility] 07-10-2024 05:00-0400 Body mass index (BMI) [Ratio] 30.93 kg/m2 Lambert Christie DO Work Phone: 6(340)625-373058 [place] [address] 07-10-2024 05:00-0400 Body weight 76.7 kg Lambert Christie DO Work Phone: 4(644)181-726358 [place] [address] 07-10-2024 04:01-0400 Respiratory rate 18 /min Lambert Christie DO Work Phone: 3(047)571-708158 [place] [address] 07-08-2024 18:00-0400 Body height 157.5 cm Lambert Christie DO Work Phone: 2(862)021-189658 [place] [address] 07-05-2024 10:28-0400 Body height 157.5 cm Pete Ponce MD Work Phone: 2(879)022-515858 [place] [address] 07-05-2024 10:28-0400 Body mass index (BMI) [Ratio] 30.6 kg/m2 Pete Ponce MD Work Phone: 5(211)147-487258 [place] [address] 07-05-2024 10:28-0400 Body temperature 98.49 [degF] Pete Ponce MD Work Phone: [facility] 07-05-2024 10:28-0400 Body weight 75.89 kg Pete Ponce MD Work Phone: [facility] 07-05-2024 10:28-0400 Diastolic blood pressure 84 mm[Hg] Pete Ponce MD Work Phone: [facility] 07-05-2024 10:28-0400 Heart rate 64 /min Pete Ponce MD Work Phone: [facility] 07-05-2024 10:28-0400 Respiratory rate 20 /min Pete Ponce MD Work Phone: [facility] 07-05-2024 10:28-0400 SaO2% (BldA) [Mass fraction] 100 % Pete Ponce MD Work Phone: [facility] 07-05-2024 10:28-0400 Systolic blood pressure 134 mm[Hg] Pete Ponce MD Work Phone: [facility] 07-02-2024 14:19-0400 Diastolic blood pressure 79 mm[Hg] Pete Ponce MD Work Phone: [facility] 07-02-2024 14:19-0400 Heart rate 54 /min Pete Ponce MD Work Phone: [facility] 07-02-2024 14:19-0400 Respiratory rate 16 /min Pete Ponce MD Work Phone: [facility] 07-02-2024 14:19-0400 SaO2% (BldA) [Mass fraction] 99 % Pete Ponce MD Work Phone: [facility] 07-02-2024 14:19-0400 Systolic blood pressure 153 mm[Hg] Pete Ponce MD Work Phone: [facility] 07-02-2024 09:54-0400 Body height 157.5 cm Pete Ponce MD Work Phone: [facility] 07-02-2024 09:54-0400 Body mass index (BMI) [Ratio] 30.56 kg/m2 Pete Ponce MD Work Phone: [facility] 07-02-2024 09:54-0400 Body temperature 98.71 [degF] Pete Ponce MD Work Phone: [facility] 07-02-2024 09:54-0400 Body weight 75.8 kg Pete Ponce MD Work Phone: [facility] 05-10-2024 12:16-0400 Body mass index (BMI) [Ratio] 28.35 kg/m2 Claribel Christinaoble HEAT TREAT TECHNICIAN.TRAVELING PASSENGER AGENT Work Phone: [facility] 05-10-2024 12:16-0400 Body weight 70.31 kg Claribel Christinaoble HEAT TREAT TECHNICIAN.TRAVELING PASSENGER AGENT Work Phone: [facility] 05-10-2024 12:16-0400 Diastolic blood pressure 80 mm[Hg] Claribel Knoble HEAT TREAT TECHNICIAN.TRAVELING PASSENGER AGENT Work Phone: [facility] 05-10-2024 12:16-0400 Heart rate 66 /min Claribel Christinaoble HEAT TREAT TECHNICIAN.TRAVELING PASSENGER AGENT Work Phone: [facility] 05-10-2024 12:16-0400 Respiratory rate 14 /min Claribel Christinaoble HEAT TREAT TECHNICIAN.TRAVELING PASSENGER AGENT Work Phone: [facility] 05-10-2024 12:16-0400 Systolic blood pressure 129 mm[Hg] Claribel Christinaoble HEAT TREAT TECHNICIAN.TRAVELING PASSENGER AGENT Work Phone: [facility] 05-07-2024 10:31-0400 Body mass index (BMI) [Ratio] 28.35 kg/m2 Therese Praisler-Wood HEAT TREAT TECHNICIAN.TRAVELING PASSENGER AGENT Work Phone: [facility] 05-07-2024 10:31-0400 Body temperature 97.39 [degF] Therese Praisler-Wood HEAT TREAT TECHNICIAN.TRAVELING PASSENGER AGENT Work Phone: [facility] 05-07-2024 10:31-0400 Body weight 70.3 kg Therese Praisler-Wood HEAT TREAT TECHNICIAN.TRAVELING PASSENGER AGENT Work Phone: [facility] 05-07-2024 10:31-0400 Diastolic blood pressure 80 mm[Hg] Therese Praisler-Wood HEAT TREAT TECHNICIAN.TRAVELING PASSENGER AGENT Work Phone: [facility] 05-07-2024 10:31-0400 Heart rate 64 /min Therese Praisler-Wood HEAT TREAT TECHNICIAN.TRAVELING PASSENGER AGENT Work Phone: [facility] 05-07-2024 10:31-0400 Respiratory rate 16 /min Therese Praisler-Wood HEAT TREAT TECHNICIAN.TRAVELING PASSENGER AGENT Work Phone: [facility] 05-07-2024 10:31-0400 SaO2% (BldA) [Mass fraction] 100 % Therese Dowling HEAT TREAT TECHNICIAN.TRAVELING PASSENGER AGENT Work Phone: [facility] 05-07-2024 10:31-0400 Systolic blood pressure 124 mm[Hg] Therese Dowling HEAT TREAT TECHNICIAN.TRAVELING PASSENGER AGENT Work Phone: [facility] 04-20-2024 13:43-0400 Body mass index (BMI) [Ratio] 28.9 kg/m2 Mervin Ambrocio HEAT TREAT TECHNICIAN.TRAVELING PASSENGER AGENT Work Phone: [facility] 04-20-2024 13:43-0400 Body weight 71.67 kg Mervin Ambrocio HEAT TREAT TECHNICIAN.TRAVELING PASSENGER AGENT Work Phone: [facility] 04-20-2024 13:43-0400 Diastolic blood pressure 80 mm[Hg] Mervin Ambrocio HEAT TREAT TECHNICIAN.TRAVELING PASSENGER AGENT Work Phone: [facility] 04-20-2024 13:43-0400 Heart rate 66 /min Mervin Ambrocio HEAT TREAT TECHNICIAN.TRAVELING PASSENGER AGENT Work Phone: [facility] 04-20-2024 13:43-0400 Respiratory rate 16 /min Mervin Cristóbal HEAT TREAT TECHNICIAN.TRAVELING PASSENGER AGENT Work Phone: [facility] 04-20-2024 13:43-0400 SaO2% (BldA) [Mass fraction] 98 % Mervin Ambrocio HEAT TREAT TECHNICIAN.TRAVELING PASSENGER AGENT Work Phone: [facility] 04-20-2024 13:43-0400 Systolic blood pressure 110 mm[Hg] Mervin Cristóbal HEAT TREAT TECHNICIAN.TRAVELING PASSENGER AGENT Work Phone: [facility] 03-23-2024 17:55-0400 Diastolic Blood Pressure Non-Invasive 62 mm[Hg] CARLA MARIVELSTORMY [facility] 03-23-2024 17:55-0400 Heart rate 57 /min CARLA MARIVELSTORMY MADERA [facility] 03-23-2024 17:55-0400 Respiratory rate 16 /min CARLA MUHAMMADT DO [facility] 03-23-2024 17:55-0400 Systolic Blood Pressure Non-Invasive 97 mm[Hg] CARLA MUHAMMADT DO [facility] 03-23-2024 14:22-0400 Body temperature 97.16 [degF] CARLA MUHAMMADT DO [facility] 03-23-2024 14:22-0400 Body weight 72.6 kg CARLA MUHAMMADT DO [facility] 03-23-2024 14:22-0400 Diastolic Blood Pressure Non-Invasive 86 mm[Hg] CARLA MUHAMMADT DO [facility] 03-23-2024 14:22-0400 Heart rate 72 /min CARLA MUHAMMADT DO [facility] 03-23-2024 14:22-0400 Respiratory rate 16 /min CARLA MITCHELL DO [facility] 03-23-2024 14:22-0400 Systolic Blood Pressure Non-Invasive 119 mm[Hg] CARLA MUHAMMADT DO [facility] 01-31-2024 10:11-0400 Body height 157.5 cm Ashanti Bogner PA-C Work Phone: [facility] 01-31-2024 10:11-0400 Body mass index (BMI) [Ratio] 29.81 kg/m2 Ashanti Bogner PA-C Work Phone: [facility] 01-31-2024 10:11-0400 Body temperature 97.39 [degF] Ashanti Bogner PA-C Work Phone: [facility] 01-31-2024 10:11-0400 Body weight 73.94 kg Ashanti Bogner PA-C Work Phone: [facility] 01-31-2024 10:11-0400 Diastolic blood pressure 54 mm[Hg] Ashanti Bogner PA-C Work Phone: [facility] 01-31-2024 10:11-0400 Heart rate 69 /min Ashanti Bogner PA-C Work Phone: [facility] 01-31-2024 10:11-0400 Respiratory rate 12 /min Ashanti Bogner PA-C Work Phone: [facility] 01-31-2024 10:11-0400 SaO2% (BldA) [Mass fraction] 100 % Ashanti Bogner PA-C Work Phone: [facility] 01-31-2024 10:11-0400 Systolic blood pressure 116 mm[Hg] Ashanti Bogner PA-C Work Phone: [facility] 12-28-2023 10:15-0400 Body temperature 97.2 [degF] Dr. Dacia Acosta Work Phone: [facility] 12-28-2023 10:15-0400 Diastolic blood pressure 52 mm[Hg] Dr. Dacia Acosta Work Phone: [facility] 12-28-2023 10:15-0400 Heart rate 76 /min Dr. Dacia Acosta Work Phone: [facility] 12-28-2023 10:15-0400 Respiratory rate 16 /min Dr. Dacia Acosta Work Phone: [facility] 12-28-2023 10:15-0400 SaO2% (BldA) [Mass fraction] 96 % Dr. Dacia Acosta Work Phone: [facility] 12-28-2023 10:15-0400 Systolic blood pressure 93 mm[Hg] Dr. Dacia Acosta Work Phone: [facility] 12-28-2023 08:52-0400 Body height 157.[address] Dacia Acosta Work Phone: [facility] 12-28-2023 08:52-0400 Body mass index (BMI) [Ratio] 31.4 kg/m2 Dr. Dacia Acosta Work Phone: [facility] 12-28-2023 08:52-0400 Body weight 78.[address] Dacia Acosta Work Phone: [facility] 12-13-2023 13:30-0400 Body temperature 97.9 [degF] Mervin Cristóbal HEAT TREAT TECHNICIAN.TRAVELING PASSENGER AGENT Work Phone: [facility] 12-13-2023 13:30-0400 Body weight 81.74 kg Mervin Cristóbal HEAT TREAT TECHNICIAN.TRAVELING PASSENGER AGENT Work Phone: [facility] 12-13-2023 13:30-0400 Diastolic blood pressure 62 mm[Hg] Mervin Cristóbal HEAT TREAT TECHNICIAN.TRAVELING PASSENGER AGENT Work Phone: [facility] 12-13-2023 13:30-0400 Heart rate 68 /min Mervin Cristóbal HEAT TREAT TECHNICIAN.TRAVELING PASSENGER AGENT Work Phone: [facility] 12-13-2023 13:30-0400 Respiratory rate 16 /min Mervin Cristóbal HEAT TREAT TECHNICIAN.TRAVELING PASSENGER AGENT Work Phone: [facility] 12-13-2023 13:30-0400 SaO2% (BldA) [Mass fraction] 99 % Mervin Cristóbal HEAT TREAT TECHNICIAN.TRAVELING PASSENGER AGENT Work Phone: [facility] 12-13-2023 13:30-0400 Systolic blood pressure 91 mm[Hg] Mervin Cristóbal HEAT TREAT TECHNICIAN.TRAVELING PASSENGER AGENT Work Phone: [facility] 12-09-2023 23:39-0400 Body temperature 97.4 [degF] Dr. Dacia Acosta Work Phone: [facility] 12-09-2023 23:39-0400 Diastolic blood pressure 73 mm[Hg] Dr. Dacia Acosta Work Phone: [facility] 12-09-2023 23:39-0400 Heart rate 77 /min Dr. Dacia Acosta Work Phone: [facility] 12-09-2023 23:39-0400 Respiratory rate 16 /min Dr. Dacia Acosta Work Phone: [facility] 12-09-2023 23:39-0400 SaO2% (BldA) [Mass fraction] 100 % Dr. Dacia Acosta Work Phone: [facility] 12-09-2023 23:39-0400 Systolic blood pressure 112 mm[Hg] Dr. Dacia Acosta Work Phone: 7(047)091-413820 [place] [address] 12-09-2023 20:42-0400 Body mass index (BMI) [Ratio] 33 kg/m2 Dr. Dacia Acosta Work Phone: 7(472)556-260320 [place] [address] 12-09-2023 20:42-0400 Body weight 81.[address] Dacia Acosta Work Phone: 0(003)767-775920 [place] [address] 12-09-2023 18:49-0400 Body height 157.[address] Dacia Acosta Work Phone: 6(488)597-646120 [place] [address] 12-07-2023 14:30-0400 Body temperature 97 [degF] Dr. Dacia Acosta Work Phone: [facility] 12-07-2023 14:30-0400 Diastolic blood pressure 68 mm[Hg] Dr. Dacia Acosta Work Phone: [facility] 12-07-2023 14:30-0400 Heart rate 78 /min Dr. Dacia Acosta Work Phone: [facility] 12-07-2023 14:30-0400 Respiratory rate 16 /min Dr. Dacia Acosta Work Phone: [facility] 12-07-2023 14:30-0400 SaO2% (BldA) [Mass fraction] 99 % Dr. Dacia Acosta Work Phone: [facility] 12-07-2023 14:30-0400 Systolic blood pressure 112 mm[Hg] Dr. Dacia Acosta Work Phone: [facility] 12-07-2023 13:23-0400 Body height 157.[address] Dacia Acosta Work Phone: 7(125)735-359220 [place] [address] 12-07-2023 13:23-0400 Body weight 79.[address] Dacia Acosta Work Phone: 9(851)590-872720 [place] [address] 12-07-2023 01:38-0400 Body mass index (BMI) [Ratio] 32.1 kg/m2 Dr. Dacia Acosta Work Phone: 3(960)043-391516 [address] 12-04-2023 20:10-0400 Body temperature 97.8 [degF] Dr. Dacia Acosta Work Phone: 8(264)204-637720 [place] [address] 12-04-2023 20:10-0400 Diastolic blood pressure 75 mm[Hg] Dr. Dacia Acosta Work Phone: 0(242)923-525420 [place] [address] 12-04-2023 20:10-0400 Heart rate 74 /min Dr. Dacia Acosta Work Phone: 5(562)587-470316 [address] 12-04-2023 20:10-0400 Respiratory rate 20 /min Dr. Dacia Acosta Work Phone: 6(093)822-458620 [place] [address] 12-04-2023 20:10-0400 SaO2% (BldA) [Mass fraction] 100 % Dr. Dacia Acosta Work Phone: 7(786)880-407920 [place] [address] 12-04-2023 20:10-0400 Systolic blood pressure 119 mm[Hg] Dr. Dacia Acosta Work Phone: 5(038)263-581116 [address] 12-04-2023 17:49-0400 Body mass index (BMI) [Ratio] 34.6 kg/m2 Dr. Dacia Acosta Work Phone: 6(374)723-673120 [place] [address] 12-04-2023 17:49-0400 Body weight 85.[address] Dacia Acosta Work Phone: [facility] 12-04-2023 16:48-0400 Body height 157.[address] Dacia Acosta Work Phone: [facility] 11-26-2023 10:27-0500 Body weight 83.37 kg Dacia Acosta MD Work Phone: [facility] 11-26-2023 10:27-0500 Diastolic blood pressure 70 mm[Hg] Dacia Acosta MD Work Phone: [facility] 11-26-2023 10:27-0500 Heart rate 90 /min Dacia Acosta MD Work Phone: [facility] 11-26-2023 10:27-0500 Respiratory rate 20 /min Dacia Acosta MD Work Phone: [facility] 11-26-2023 10:27-0500 SaO2% (BldA) [Mass fraction] 94 % Dacia Acosta MD Work Phone: [facility] 11-26-2023 10:27-0500 Systolic blood pressure 128 mm[Hg] Dacia Acosta MD Work Phone: [facility] 11-10-2023 17:45-0500 Body temperature 96.9 [degF] Dr. Dacia Acosta Work Phone: [facility] 11-10-2023 17:45-0500 Diastolic blood pressure 52 mm[Hg] Dr. Dacia Acosta Work Phone: [facility] 11-10-2023 17:45-0500 Heart rate 48 /min Dr. Dacia Acosta Work Phone: [facility] 11-10-2023 17:45-0500 Respiratory rate 14 /min Dr. Dacia Acosta Work Phone: [facility] 11-10-2023 17:45-0500 SaO2% (BldA) [Mass fraction] 95 % Dr. Dacia Acosta Work Phone: [facility] 11-10-2023 17:45-0500 Systolic blood pressure 114 mm[Hg] Dr. Dacia Acosta Work Phone: [facility] 11-10-2023 15:15-0500 Body height 157.[address] Dacia Acosta Work Phone: 8(205)490-540320 [place] [address] 11-07-2023 10:41-0500 Diastolic blood pressure 64 mm[Hg] Dr. Dacia Acosta Work Phone: 2(541)696-432620 [place] [address] 11-07-2023 10:41-0500 Heart rate 72 /min Dr. Dacia Acosta Work Phone: 8(969)450-548920 [place] [address] 11-07-2023 10:41-0500 Respiratory rate 16 /min Dr. Dacia Acosta Work Phone: 6(450)685-638620 [place] [address] 11-07-2023 10:41-0500 SaO2% (BldA) [Mass fraction] 98 % Dr. Dacia Acosta Work Phone: 3(399)936-885520 [place] [address] 11-07-2023 10:41-0500 Systolic blood pressure 127 mm[Hg] Dr. Dacia Acosta Work Phone: 1(057)340-230820 [place] [address] 11-07-2023 08:29-0500 Body mass index (BMI) [Ratio] 37.1 kg/m2 Dr. Dacia Acosta Work Phone: 0(903)060-969020 [place] [address] 11-07-2023 08:29-0500 Body weight 92.[address] Dacia Acosta Work Phone: 9(118)387-250120 [place] [address] 11-07-2023 07:23-0500 Body height 157.[address] Dacia Acosta Work Phone: 9(190)290-371220 [place] [address] 11-07-2023 07:23-0500 Body temperature 98.2 [degF] Dr. Dacia Acosta Work Phone: 2(061)152-892620 [place] [address] 11-05-2023 21:00-0500 Diastolic blood pressure 77 mm[Hg] Dr. Dacia Acosta Work Phone: 7(293)781-871820 [place] [address] 11-05-2023 21:00-0500 Heart rate 62 /min Dr. Dacia Acosta Work Phone: 7(371)095-179920 [place] [address] 11-05-2023 21:00-0500 Respiratory rate 14 /min Dr. Dacia Acosta Work Phone: [facility] 11-05-2023 21:00-0500 SaO2% (BldA) [Mass fraction] 98 % Dr. Dacia Acosta Work Phone: [facility] 11-05-2023 21:00-0500 Systolic blood pressure 131 mm[Hg] Dr. Dacia Acosta Work Phone: [facility] 11-05-2023 18:46-0500 Body height 157.[address] Dacia Acosta Work Phone: [facility] 11-05-2023 18:46-0500 Body mass index (BMI) [Ratio] 38.1 kg/m2 Dr. Dacia Acosta Work Phone: [facility] 11-05-2023 18:46-0500 Body temperature 97.1 [degF] Dr. Dacia Acosta Work Phone: [facility] 11-05-2023 18:46-0500 Body weight 94.[address] Dacia Acosta Work Phone: [facility] 11-01-2023 15:49-0500 Body temperature 97.5 [degF] Latasha Athy PA-C Work Phone: [facility] 11-01-2023 15:49-0500 Body weight 92.08 kg Latasha Athy PA-C Work Phone: [facility] 11-01-2023 15:49-0500 Diastolic blood pressure 86 mm[Hg] Latasha Athy PA-C Work Phone: [facility] 11-01-2023 15:49-0500 Heart rate 82 /min Latasha Athy PA-C Work Phone: [facility] 11-01-2023 15:49-0500 Respiratory rate 20 /min Latasha Athy PA-C Work Phone: [facility] 11-01-2023 15:49-0500 SaO2% (BldA) [Mass fraction] 100 % Latasha Athy PA-C Work Phone: [facility] 11-01-2023 15:49-0500 Systolic blood pressure 119 mm[Hg] Latasha Nataliia GARCIA-Nuvia Work Phone: [facility] 2023 08:43-0500 Body temperature 98.3 [degF] Dr. Dacia Acosta Work Phone: [facility] 2023 08:43-0500 Diastolic blood pressure 65 mm[Hg] Dr. Dacia Acosta Work Phone: 2(590)720-669920 [place] [address] 2023 08:43-0500 Heart rate 71 /min Dr. Dacia Acosta Work Phone: 3(487)016-932920 [place] [address] 2023 08:43-0500 Respiratory rate 16 /min Dr. Dacia Acosta Work Phone: 2(789)620-416716 [address] 2023 08:43-0500 SaO2% (BldA) [Mass fraction] 98 % Dr. Dacia Acosta Work Phone: [facility] 2023 08:43-0500 Systolic blood pressure 121 mm[Hg] Dr. Dacia Acosta Work Phone: 7(054)520-882816 [address] 10-06-2023 23:10-0500 Body height 157.[address] Dacia Acosta Work Phone: 8(102)909-456516 [address] 10-06-2023 23:10-0500 Body mass index (BMI) [Ratio] 36.8 kg/m2 Dr. Dacia Acosta Work Phone: 0(710)342-239420 [place] [address] 10-06-2023 23:10-0500 Body weight 91.[address] Dacia Acosta Work Phone: 3(652)894-158416 [address] 09-25-2023 00:14-0500 Diastolic blood pressure 84 mm[Hg] Dr. Dacia Acosta Work Phone: [facility] 09-25-2023 00:14-0500 Heart rate 68 /min Dr. Dacia Acosta Work Phone: 2(319)966-731120 [place] [address] 09-25-2023 00:14-0500 Respiratory rate 16 /min Dr. Dacia Acosta Work Phone: [facility] 09-25-2023 00:14-0500 SaO2% (BldA) [Mass fraction] 100 % Dr. Dacia Acosta Work Phone: [facility] 09-25-2023 00:14-0500 Systolic blood pressure 134 mm[Hg] Dr. Dacia Acosta Work Phone: [facility] 09-24-2023 20:43-0500 Body height 157.[address] Dacia Acosta Work Phone: 7(836)328-303016 [address] 09-24-2023 20:43-0500 Body mass index (BMI) [Ratio] 36.8 kg/m2 Dr. Dacia Acosta Work Phone: 7(711)911-595420 [place] [address] 09-24-2023 20:43-0500 Body temperature 97.8 [degF] Dr. Dacia Acosta Work Phone: [facility] 09-24-2023 20:43-0500 Body weight 91.[address] Dacia Acosta Work Phone: [facility] 09-15-2023 12:01-0500 Body mass index (BMI) [Ratio] 38.38 kg/m2 Lenny Macdonald MD Work Phone: [facility] 09-15-2023 12:01-0500 Body weight 95.21 kg Lenny Macdonald MD Work Phone: [facility] 09-15-2023 11:39-0500 Body height 157.5 cm Lenny Macdonald MD Work Phone: [facility] 09-15-2023 06:02-0500 Body temperature 97.3 [degF] Lenny Macdonald MD Work Phone: [facility] 09-15-2023 06:02-0500 Diastolic blood pressure 53 mm[Hg] Lenny Macdonald MD Work Phone: [facility] 09-15-2023 06:02-0500 Heart rate 68 /min Lenny Macdonald MD Work Phone: [facility] 09-15-2023 06:02-0500 Respiratory rate 16 /min Lenny Macdonald MD Work Phone: [facility] 09-15-2023 06:02-0500 SaO2% (BldA) [Mass fraction] 98 % Lenny Macdonald MD Work Phone: [facility] 09-15-2023 06:02-0500 Systolic blood pressure 91 mm[Hg] Lenny Macdonadl MD Work Phone: [facility] 08-22-2023 17:42-0500 Body temperature 98.2 [degF] Dr. Dacia Acosta Work Phone: [facility] 08-22-2023 17:42-0500 Diastolic blood pressure 89 mm[Hg] Dr. Dacia Acosta Work Phone: [facility] 08-22-2023 17:42-0500 Heart rate 71 /min Dr. Dacia Acosta Work Phone: [facility] 08-22-2023 17:42-0500 Respiratory rate 20 /min Dr. Dacia Acosta Work Phone: [facility] 08-22-2023 17:42-0500 SaO2% (BldA) [Mass fraction] 100 % Dr. Dacia Acosta Work Phone: [facility] 08-22-2023 17:42-0500 Systolic blood pressure 131 mm[Hg] Dr. Dacia Acosta Work Phone: [facility] 08-22-2023 13:45-0500 Body temperature 97.6 [degF] Dr. Dacia Acosta Work Phone: [facility] 08-22-2023 13:45-0500 Diastolic blood pressure 77 mm[Hg] Dr. Dacia Acosta Work Phone: [facility] 08-22-2023 13:45-0500 Heart rate 71 /min Dr. Dacia Acosta Work Phone: 6(133)162-543420 [place] [address] 08-22-2023 13:45-0500 Respiratory rate 18 /min Dr. Dacia Acosta Work Phone: 0(871)662-948220 [place] [address] 08-22-2023 13:45-0500 SaO2% (BldA) [Mass fraction] 97 % Dr. Dacia Acosta Work Phone: 1(498)262-932520 [place] [address] 08-22-2023 13:45-0500 Systolic blood pressure 131 mm[Hg] Dr. Dacia Acosta Work Phone: 8(896)967-365820 [place] [address] 08-22-2023 06:55-0500 Body height 157.[address] Dacia Acosta Work Phone: 2(920)279-117720 [place] [address] 08-22-2023 06:55-0500 Body mass index (BMI) [Ratio] 37.6 kg/m2 Dr. Dacia Acosta Work Phone: 2(412)703-173320 [place] [address] 08-22-2023 06:55-0500 Body weight 93.[address] Dacia Acosta Work Phone: 7(234)305-876520 [place] [address] 08-15-2023 14:40-0500 Diastolic blood pressure 58 mm[Hg] Dr. Dacia Acosta Work Phone: 3(043)035-240320 [place] [address] 08-15-2023 14:40-0500 Heart rate 72 /min Dr. Dacia Acosta Work Phone: 0(580)620-851220 [place] [address] 08-15-2023 14:40-0500 Systolic blood pressure 117 mm[Hg] Dr. Dacia Acosta Work Phone: 3(408)726-044820 [place] [address] 08-15-2023 12:59-0500 Body mass index (BMI) [Ratio] 36.6 kg/m2 Dr. Dacia Acosta Work Phone: 0(146)809-353520 [place] [address] 08-15-2023 12:59-0500 Body temperature 97.2 [degF] Dr. Dacia Acosta Work Phone: 9(427)274-998820 [place] [address] 08-15-2023 12:59-0500 Body weight 90.[address] Dacia Acosta Work Phone: 4(328)173-997120 [place] [address] 08-15-2023 12:59-0500 Respiratory rate 16 /min Dr. Dacia Acosta Work Phone: 8(795)030-441920 [place] [address] 08-15-2023 12:59-0500 SaO2% (BldA) [Mass fraction] 100 % Dr. Dacia Acosta Work Phone: 0(324)879-097320 [place] [address] 07-22-2023 15:37-0400 Body mass index (BMI) [Ratio] 40.9 kg/m2 Dr. Dacia Acosta Work Phone: 7(294)010-691020 [place] [address] 07-22-2023 15:37-0400 Body weight 101.[address] Dacia Acosta Work Phone: 2(826)677-895520 [place] [address] 07-22-2023 15:37-0400 Diastolic blood pressure 94 mm[Hg] Dr. Dacia Acosta Work Phone: 9(445)160-012520 [place] [address] 07-22-2023 15:37-0400 Heart rate 71 /min Dr. Dacia Acosta Work Phone: 0(576)273-046320 [place] [address] 07-22-2023 15:37-0400 SaO2% (BldA) [Mass fraction] 98 % Dr. Dacia Acosta Work Phone: 1(172)388-673520 [place] [address] 07-22-2023 15:37-0400 Systolic blood pressure 134 mm[Hg] Dr. Dacia Acosta Work Phone: 8(436)384-017920 [place] [address] 07-21-2023 13:13-0400 Body temperature 98 [degF] Dr. Dacia Acosta Work Phone: 6(436)230-903920 [place] [address] 07-21-2023 13:13-0400 Diastolic blood pressure 45 mm[Hg] Dr. Dacia Acosta Work Phone: 2(584)210-571120 [place] [address] 07-21-2023 13:13-0400 Heart rate 97 /min Dr. Dacia Acosta Work Phone: 5(124)335-758920 [place] [address] 07-21-2023 13:13-0400 Respiratory rate 18 /min Dr. Dacia Acosta Work Phone: [facility] 07-21-2023 13:13-0400 SaO2% (BldA) [Mass fraction] 98 % Dr. Dacia Acosta Work Phone: [facility] 07-21-2023 13:13-0400 Systolic blood pressure 95 mm[Hg] Dr. Dacia Acosta Work Phone: [facility] 07-21-2023 06:00-0400 Body mass index (BMI) [Ratio] 40.4 kg/m2 Dr. Dacia Acosta Work Phone: [facility] 07-21-2023 06:00-0400 Body weight 99.[address] Dacia Acosta Work Phone: [facility] 07-21-2023 03:03-0400 Body height 157.[address] Dacia Acosta Work Phone: [facility] 07-20-2023 22:35-0400 Diastolic blood pressure 80 mm[Hg] [facility] 07-20-2023 22:35-0400 Heart rate 58 /min [facility] 07-20-2023 22:35-0400 Respiratory rate 16 /min [facility] 07-20-2023 22:35-0400 SaO2% (BldA) [Mass fraction] 100 % [facility] 07-20-2023 22:35-0400 Systolic blood pressure 132 mm[Hg] [facility] 07-20-2023 20:20-0400 Body temperature 97.7 [degF] [facility] 07-20-2023 16:13-0400 Body height 157.48 cm [facility] 07-20-2023 16:13-0400 Body mass index (BMI) [Ratio] 40.9 kg/m2 [facility] 07-20-2023 16:13-0400 Body weight 101.6 kg [facility] 04-25-2023 16:53-0400 Heart rate 74 /min [facility] 04-25-2023 16:53-0400 Respiratory rate 18 /min [facility] 04-25-2023 16:53-0400 SaO2% (BldA) [Mass fraction] 98 % [facility] 04-25-2023 13:53-0400 Body height 157.48 cm [facility] 04-25-2023 13:53-0400 Body mass index (BMI) [Ratio] 38.5 kg/m2 [facility] 04-25-2023 13:53-0400 Body temperature 97.3 [degF] [facility] 04-25-2023 13:53-0400 Body weight 95.39 kg [facility] 04-25-2023 13:53-0400 Diastolic blood pressure 97 mm[Hg] [facility] 04-25-2023 13:53-0400 Systolic blood pressure 133 mm[Hg] [facility] 12-02-2022 12:49-0500 Body temperature 98.29 [degF] Krislyn Aberegg PA Work Phone: [facility] 12-02-2022 12:49-0500 Body weight 94.62 kg Krislyn Aberegg PA Work Phone: [facility] 12-02-2022 12:49-0500 Diastolic blood pressure 78 mm[Hg] Krislyn Aberegg PA Work Phone: [facility] 12-02-2022 12:49-0500 Heart rate 64 /min Krislyn Aberegg PA Work Phone: [facility] 12-02-2022 12:49-0500 Respiratory rate 16 /min Krislyn Aberegg PA Work Phone: [facility] 12-02-2022 12:49-0500 SaO2% (BldA) [Mass fraction] 98 % Krislyn Aberegg PA Work Phone: [facility] 12-02-2022 12:49-0500 Systolic blood pressure 104 mm[Hg] Krislyn Aberegg PA Work Phone: [facility] 09-29-2022 17:56-0500 Body temperature 98.2 [degF] Lynn Prabhakar MD Work Phone: [facility] 09-29-2022 17:56-0500 Body weight 94.98 kg Lynn Prabhakar MD Work Phone: [facility] 09-29-2022 17:56-0500 Diastolic blood pressure 82 mm[Hg] Lynn Prabhakar MD Work Phone: [facility] 09-29-2022 17:56-0500 Heart rate 67 /min Lynn Prabhakar MD Work Phone: [facility] 09-29-2022 17:56-0500 Respiratory rate 20 /min Lynn Prabhakar MD Work Phone: [facility] 09-29-2022 17:56-0500 SaO2% (BldA) [Mass fraction] 99 % Lynn Prabhakar MD Work Phone: [facility] 09-29-2022 17:56-0500 Systolic blood pressure 122 mm[Hg] Lynn Prabhakar MD Work Phone: [facility] 09-15-2022 08:55-0500 Body temperature 97.8 [degF] Dr. Dacia Acosta Work Phone: [facility] Work Phone: 09-15-2022 08:55-0500 Diastolic blood pressure 88 mm[Hg] Dr. Dacia Acosta Work Phone: [facility] Work Phone: 09-15-2022 08:55-0500 Heart rate 74 /min Dr. Dacia Acosta Work Phone: [facility] Work Phone: 09-15-2022 08:55-0500 Respiratory rate 73 /min Dr. Dacia Acosta Work Phone: [facility] Work Phone: 09-15-2022 08:55-0500 SaO2% (BldA) [Mass fraction] 96 % Dr. Dacia Acosta Work Phone: [facility] Work Phone: 09-15-2022 08:55-0500 Systolic blood pressure 131 mm[Hg] Dr. Dacia Acosta Work Phone: [facility] Work Phone: 09-15-2022 07:44-0500 Body height 157.[address] Dacia Acosta Work Phone: [facility] Work Phone: 09-15-2022 07:44-0500 Body mass index (BMI) [Ratio] 35.4 kg/m2 Dr. Dacia Acosta Work Phone: [facility] Work Phone: 09-15-2022 07:44-0500 Body weight [address] Dacia Acosta Work Phone: [facility] Work Phone: 05-21-2022 13:25-0400 Body temperature 97.8 [degF] Dr. Dacia Acosta Work Phone: [facility] Work Phone: 05-21-2022 13:25-0400 Diastolic blood pressure 65 mm[Hg] Dr. Dacia Acosta Work Phone: [facility] Work Phone: 05-21-2022 13:25-0400 Heart rate 71 /min Dr. Dacia Acosta Work Phone: [facility] Work Phone: 05-21-2022 13:25-0400 Respiratory rate 16 /min Dr. Dacia Acosta Work Phone: [facility] Work Phone: 05-21-2022 13:25-0400 SaO2% (BldA) [Mass fraction] 100 % Dr. Dacia Acosta Work Phone: [facility] Work Phone: 05-21-2022 13:25-0400 Systolic blood pressure 100 mm[Hg] Dr. Dacia Acosta Work Phone: [facility] Work Phone: 05-21-2022 05:30-0400 Body weight 91.[address] Dacia Acosta Work Phone: [facility] Work Phone: 05-20-2022 13:41-0400 Body height 157.[address] Dacia Acosta Work Phone: [facility] Work Phone: 05-19-2022 22:23-0400 Body mass index (BMI) [Ratio] 36.3 kg/m2 Dr. Dacia Acosta Work Phone: [facility] Work Phone: 05-19-2022 21:52-0400 Body temperature 98 [degF] [facility] Work Phone: 05-19-2022 21:52-0400 Diastolic blood pressure 52 mm[Hg] [facility] Work Phone: 05-19-2022 21:52-0400 Heart rate 70 /min [facility] Work Phone: 05-19-2022 21:52-0400 Respiratory rate 15 /min [facility] Work Phone: 05-19-2022 21:52-0400 SaO2% (BldA) [Mass fraction] 95 % [facility] Work Phone: 05-19-2022 21:52-0400 Systolic blood pressure 118 mm[Hg] [facility] Work Phone: 05-19-2022 17:09-0400 Body height 157.48 cm [facility] Work Phone: 05-19-2022 17:09-0400 Body mass index (BMI) [Ratio] 34.7 kg/m2 [facility] Work Phone: 05-19-2022 17:09-0400 Body weight 86.18 kg [facility] Work Phone: 05-15-2022 19:35-0400 Body height 157.48 cm [facility] Work Phone: 05-15-2022 19:35-0400 Body mass index (BMI) [Ratio] 33.5 kg/m2 [facility] Work Phone: 05-15-2022 19:35-0400 Body temperature 98.4 [degF] [facility] Work Phone: 05-15-2022 19:35-0400 Body weight 83 kg [facility] Work Phone: 05-15-2022 19:35-0400 Diastolic blood pressure 89 mm[Hg] [facility] Work Phone: 05-15-2022 19:35-0400 Heart rate 81 /min [facility] Work Phone: 05-15-2022 19:35-0400 Respiratory rate 15 /min [facility] Work Phone: 05-15-2022 19:35-0400 SaO2% (BldA) [Mass fraction] 99 % [facility] Work Phone: 05-15-2022 19:35-0400 Systolic blood pressure 131 mm[Hg] [facility] Work Phone: 05-10-2022 15:42-0400 Diastolic blood pressure 96 mm[Hg] Dacia Acosta MD Work Phone: [facility] 05-10-2022 15:42-0400 Systolic blood pressure 148 mm[Hg] Dacia Acosta MD Work Phone: [facility] 05-10-2022 15:39-0400 Body weight 89.18 kg Dacia Acosta MD Work Phone: [facility] 05-10-2022 15:39-0400 Heart rate 92 /min Dacia Acosta MD Work Phone: [facility] 05-10-2022 15:39-0400 Respiratory rate 20 /min Dacia Acosta MD Work Phone: [facility] 05-09-2022 14:43-0400 Body temperature 98.6 [degF] Blanca Dawson APRN.TRAVELING PASSENGER AGENT Work Phone: [facility] 05-09-2022 14:43-0400 Body weight 91.54 kg Blanca Dawson APRN.TRAVELING PASSENGER AGENT Work Phone: [facility] 05-09-2022 14:43-0400 Diastolic blood pressure 74 mm[Hg] Blanca Dawson APRN.TRAVELING PASSENGER AGENT Work Phone: [facility] 05-09-2022 14:43-0400 Heart rate 85 /min Blanca Dawson APRN.TRAVELING PASSENGER AGENT Work Phone: [facility] 05-09-2022 14:43-0400 Respiratory rate 21 /min Blanca Dawson APRN.TRAVELING PASSENGER AGENT Work Phone: [facility] 05-09-2022 14:43-0400 SaO2% (BldA) [Mass fraction] 99 % Blanca Dawson APRN.TRAVELING PASSENGER AGENT Work Phone: [facility] 05-09-2022 14:43-0400 Systolic blood pressure 126 mm[Hg] Blanca Dawson APRN.TRAVELING PASSENGER AGENT Work Phone: [facility] 03-11-2022 14:26-0400 Body weight 92.08 kg Tresa Sandoval APRN.TRAVELING PASSENGER AGENT Work Phone: [facility] 03-11-2022 14:26-0400 Diastolic blood pressure 64 mm[Hg] Tresa Parkhof HEAT TREAT TECHNICIAN.TRAVELING PASSENGER AGENT Work Phone: [facility] 03-11-2022 14:26-0400 Heart rate 62 /min Tresa Parkhof HEAT TREAT TECHNICIAN.TRAVELING PASSENGER AGENT Work Phone: [facility] 03-11-2022 14:26-0400 Respiratory rate 14 /min Tresa Parkhof HEAT TREAT TECHNICIAN.TRAVELING PASSENGER AGENT Work Phone: [facility] 03-11-2022 14:26-0400 Systolic blood pressure 106 mm[Hg] Tresa Sandoval HEAT TREAT TECHNICIAN.TRAVELING PASSENGER AGENT Work Phone: [facility] 01-11-2022 13:23-0400 Body temperature 97.81 [degF] Becca Singer HEAT TREAT TECHNICIAN.TRAVELING PASSENGER AGENT Work Phone: [facility] 01-11-2022 13:23-0400 Body weight 96.34 kg Becca Singer HEAT TREAT TECHNICIAN.TRAVELING PASSENGER AGENT Work Phone: [facility] 01-11-2022 13:23-0400 Diastolic blood pressure 62 mm[Hg] Becca Singer HEAT TREAT TECHNICIAN.TRAVELING PASSENGER AGENT Work Phone: [facility] 01-11-2022 13:23-0400 Heart rate 65 /min Becca Singer HEAT TREAT TECHNICIAN.TRAVELING PASSENGER AGENT Work Phone: [facility] 01-11-2022 13:23-0400 Respiratory rate 21 /min Becca Singer HEAT TREAT TECHNICIAN.TRAVELING PASSENGER AGENT Work Phone: [facility] 01-11-2022 13:23-0400 SaO2% (BldA) [Mass fraction] 99 % Becca Singer HEAT TREAT TECHNICIAN.TRAVELING PASSENGER AGENT Work Phone: [facility] 01-11-2022 13:23-0400 Systolic blood pressure 102 mm[Hg] Becca Singer HEAT TREAT TECHNICIAN.TRAVELING PASSENGER AGENT Work Phone: [facility] 08-04-2018 12:36-0500 Body surface area Derived from formula [facility] 08-04-2018 12:11-0500 Body surface area Derived from formula [facility] Encounters Encounter Date Encounter Type Care Provider Facility Start: 08-05-2025 ambulatory Mary Singer Facility:[facility] Start: 08-02-2025 End: 08-02-2025 ambulatory JEREMIAS FABIAN Facility:[facility] Start: 07-25-2025 End: 07-25-2025 ambulatory Zebulun Beam VSC Facility:[facility] Start: 07-25-2025 End: 07-25-2025 ambulatory Zebulun Beam VSC Facility:[facility] Start: 07-25-2025 End: 07-25-2025 ambulatory Zebulun Beam VSC Facility:[facility] Start: 07-16-2025 End: 07-16-[address] Timoteo Gardiner MD -Ultrasound [facility] Work Phone: Start: 07-16-2025 End: 07-16-2025 ambulatory Timoteo Gardiner Facility:[facility] Start: 07-15-2025 End: 07-15-2025 Emergency department patient visit Dr. Timoteo Gardiner MD -Emergency Department Work Phone: Start: 07-11-2025 End: 07-11-2025 Emergency department patient visit Dr. Brock SnellSaad DO -Emergency Department Work Phone: Start: 06-26-2025 End: 06-26-[address] Shon Quintero MD Work Phone: -Laboratory Start: 06-26-2025 End: 06-26-2025 Patient encounter procedure [place]OWN DOCTOR -Laboratory Work Phone: Start: 06-26-2025 End: 06-26-2025 ambulatory [facility] Facility:[facility] Start: 06-09-2025 End: 06-09-2025 Emergency department patient visit CESIA PUENTE MD [facility] Start: 05-29-2025 ambulatory Tresa [facility] Facility :[facility] Start: 05-20-2025 End: 05-20-2025 ambulatory [facility] Work Phone: -Laboratory Start: 05-20-2025 End: 05-20-2025 Patient encounter procedure Zebulun Beam CENTRIFUGAL CASTING MACHINE OPERATOR-C -Laboratory Work Phone: Start: 05-20-2025 End: 05-20-2025 Zebulun Beam CENTRIFUGAL CASTING MACHINE OPERATOR-C -Laboratory Work Phone: Start: 05-20-2025 End: 05-20-2025 ambulatory Zebulun Beam VSC Facility:[facility] Start: 05-15-2025 End: 05-15-[address] Son Adams MD -[facility] Work Phone: Start: 05-15-2025 End: 05-15-2025 Dr. Son Adams MD -[facility] Work Phone: Start: 05-15-2025 End: 05-15-2025 ambulatory [facility] Work Phone: -[facility] Start: 05-07-2025 End: 05-07-2025 ambulatory [facility] Work Phone: -Radiology [facility] Start: 05-07-2025 End: 05-07-2025 Patient encounter procedure Zebulun Beam CENTRIFUGAL CASTING MACHINE OPERATOR-C -Radiology [facility] Work Phone: Start: 05-07-2025 End: 05-07-2025 Zebulun Beam CENTRIFUGAL CASTING MACHINE OPERATOR-C -Radiology [facility] Work Phone: Start: 05-07-2025 End: 05-07-2025 ambulatory Zebulun Beam VSC Facility:[facility] Start: 04-04-2025 End: 04-04-2025 Non-patient / Non-visit Dr. Azam Schneider MD -[facility] Work Phone: Start: 04-04-2025 End: 04-04-2025 ambulatory [facility] Work Phone: -Pulmonary Services/Neurology Start: 04-04-2025 End: 04-04-2025 Patient encounter procedure Zebulun Beam CENTRIFUGAL CASTING MACHINE OPERATOR-C -Pulmonary Services/Neurology Work Phone: Start: 04-04-2025 End: 04-04-2025 Zebulun Beam CENTRIFUGAL CASTING MACHINE OPERATOR-C -Pulmonary Services/Neurology Work Phone: Start: 04-04-2025 End: 04-04-2025 ambulatory Zebulun Beam VSC Facility:[facility] Start: 03-28-2025 End: 03-28-2025 Patient encounter procedure Mariah Benavidez Work Phone: Podiatry Comment on above: Onychomycosis (Prima ry Dx); Pain in toe of left foot; Pain in toe of right foot; Plantar fasciitis Start: 03-28-2025 End: 03-28-2025 ambulatory MARIAH BENAVIDEZ Facility:[facility] Start: 03-27-2025 End: 03-27-2025 ambulatory [facility] Work Phone: -Radiology [facility] Start: 03-27-2025 End: 03-27-2025 Patient encounter procedure Zebulun Beam CENTRIFUGAL CASTING MACHINE OPERATOR-C -Radiology [facility] Work Phone: Start: 03-27-2025 End: 03-27-2025 Zebulun Beam CENTRIFUGAL CASTING MACHINE OPERATOR-C -Radiology [facility] Work Phone: Start: 03-27-2025 End: 03-27-2025 ambulatory Zebulun Beam VSC Facility:[facility] Start: 03-20-[facility] Start: 03-15-2025 Non-patient / Non-visit Marcelina Blake nd, DO -[facility] Start: 03-15-2025 End: 03-15-2025 Admission to same day surgery center Marcelina Foster DO -Endoscopy Work Phone: Start: 03-15-2025 End: 03-15-2025 Marcelina Foster DO -Endoscopy Work Phone: Start: 03-15-2025 End: 03-15-2025 ambulatory [facility] Work Phone: [facility] Work Phone: Start: 03-07-2025 End: 03-07-2025 ambulatory [facility] Work Phone: [facility] Work Phone: Start: 03-07-2025 End: 03-07-[address] Shon Quintero MD -Ultrasound [facility] Work Phone: Start: 03-07-2025 End: 03-07-2025 Dr. Shon Quintero MD -Ultrasound [facility] Work Phone: Start: 03-07-2025 End: 03-07-2025 ambulatory Shon Quintero Facility:[facility] Start: 03-05-2025 ambulatory [facility] Facility :[facility] Start: 02-26-2025 End: 02-26-2025 Dr. Brock Ruiz DO -Emergency Department Work Phone: Start: 02-26-2025 End: 02-26-2025 Emergency department patient visit [facility] Work Phone: -Emergency Department Work Phone: Start: 02-26-2025 End: 02-26-2025 ambulatory [facility] Work Phone: [facility] Work Phone: Start: 02-26-2025 End: 02-26-2025 [facility] CENTRIFUGAL CASTING MACHINE OPERATOR-C -[facility]atory [place] [facility] Start: 02-26-2025 End: 02-26-2025 [facility] CENTRIFUGAL CASTING MACHINE OPERATOR-C -[facility]atory [place] [facility] Start: 02-26-2025 End: 02-26-2025 ambulatory [facility] Facility:[facility] Start: 02-21-2025 End: 02-22-2025 [facility] Work Phone: -Emergency Department Work Phone: Start: 02-21-2025 End: 02-22-2025 Emergency department patient visit [facility] Work Phone: -Emergency Department Work Phone: Start: 02-08-2025 End: 02-08-2025 Dr. Chris Ramos MD -Emergency Department Work Phone: Start: 02-08-2025 End: 02-08-2025 Emergency department patient visit [facility] Work Phone: -Emergency Department Work Phone: Start: 02-07-2025 End: 02-07-2025 ambulatory [facility] Work Phone: [facility] Work Phone: Start: 02-07-2025 End: 02-07-2025 Patient encounter procedure Tresa Sandoval CENTRIFUGAL CASTING MACHINE OPERATOR-C -Laboratory [facility] Start: 02-07-2025 End: 02-07-2025 Tresa Sandoval CENTRIFUGAL CASTING MACHINE OPERATOR-C -Laboratory [facility] Start: 02-07-2025 End: 02-07-2025 ambulatory Tresa Sandoval Facility:[facility] Start: 02-04-2025 ambulatory JUDIE~[id number] REJI KING [facility] Start: 02-04-2025 End: 02-04-2025 Dr. Michi Cope DO -Emergency Departmd nt Work Phone: Start: 02-04-2025 End: 02-04-2025 Emergency department patient visit [facility] Work Phone: -Emergency Department Work Phone: Start: 01-23-2025 End: 01-23-[address] Son Adams MD -[facility] Work Phone: Start: 01-23-2025 End: 01-23-2025 Dr. Son Adams MD -[facility] Work Phone: Start: 01-23-2025 End: 01-23-2025 ambulatory [facility] [facility] Start: 01-17-2025 End: 01-17-2025 Emergency department patient visit DR BROOKLYN MIKE MD [facility] Start: 01-03-2025 ambulatory KATHARINA Alexander JAZMYN [facility] Start: 12-19-2024 End: 12-19-2024 ambulatory LYSSA SHORT [facility] Start: 12-18-2024 End: 12-18-2024 ambulatory SELF~[id number] REFERRAL REFERRAL SELF [facility] Start: 12-18-2024 End: 12-18-2024 Subsequent hospital visit by physician Self Referral Work Phone: [facility] Comment on above: Visit for screening mammogram Start: 12-11-2024 ambulatory ANGE~[id number] ALEXIS MONTGOMERY [facility] Start: 12-10-2024 End: 12-13-2024 ambulatory ANGE~[id number] ALEXIS MONTGOMERY [facility] Start: 12-10-2024 End: 12-13-2024 Emergency department patient visit Leah Thrasher Krunal DO Work Phone: Clinical Decision Unit 6 Comment on above: Abdominal pain (Prim randi Dx); Ascites; Lower back pain; Cirrhosis of liver with ascites; Tobacco use disorder Start: 12-06-2024 End: 12-06-2024 ambulatory ANGE~[id number] ALEXIS MONTGOMERY [facility] Start: 12-06-2024 End: 12-06-2024 Subsequent hospital visit by physician Max Rico MD Work Phone: [facility] Interventional Radiology Comment on above: Ascites Start: 11-29-2024 ambulatory ANGE~[id number] ALEXIS MONTGOMERY [facility] Start: 11-28-2024 End: 11-28-2024 Subsequent hospital visit by physician Minda Gómez MD Work Phone: [facility]iology Comment on above: Ascites Start: 11-28-2024 End: 11-28-2024 ambulatory [facility] Start: 11-21-2024 ambulatory [facility] Start: 11-19-2024 End: 11-20-2024 Emergency department patient visit Lambert Gracie DO Work Phone: Emergency Department Comment on above: Viral syndrome (Prim randi Dx) Start: 11-13-2024 End: 11-13-2024 ambulatory NEEL KIKA [facility] Start: 11-09-2024 End: 11-09-2024 ambulatory ANGE~[id number] ALEXIS ESPINOZA [facility] Start: 11-08-2024 End: 11-08-2024 [facility][id number] [facility] Start: 11-02-2024 ambulatory ANGE~[id number] ALEXIS MONTGOMERY [facility] Start: 10-30-2024 End: 10-30-2024 ambulatory ANGE~[id number] ALEXIS MONTGOMERY [facility] Start: 10-30-2024 End: 10-30-2024 Subsequent hospital visit by physician Minda Gómez MD Work Phone: [facility]iology Comment on above: Ascites Start: 10-19-2024 ambulatory ANGE~[id number] ALEXIS MONTGOMERY [facility] Start: 10-18-2024 End: 10-18-2024 ambulatory MD GINGER LOREDO) [facility] Start: 10-18-2024 End: 10-18-2024 Subsequent hospital visit by physician Ginger Milton MD Work Phone: [facility] Inter[facility]iology Comment on above: Ascites Start: 10-17-2024 End: 10-17-2024 ambulatory LUCAS VILLANUEVA [facility] Start: 10-15-2024 End: 10-15-2024 Telephone encounter James Hendrix MD Work Phone: [facility] Start: 10-15-2024 ambulatory MD GINGER MILTON (PAUL) [facility] Start: 10-10-2024 End: 10-10-2024 Telephone encounter James Hendrix MD Work Phone: [facility] Start: 2024 ambulatory JUDIE~[id number] REJI KING [facility] Start: 10-04-2024 End: 10-04-2024 Emergency department patient visit Pete Ponce MD Work Phone: Emergency Department Comment on above: Cirrhosis of liver ( CMS/HCC) (Primary Dx) Start: 10-03-2024 ambulatory NE DE GUZMAN [facility] Start: 10-03-2024 End: 10-03-2024 ambulatory MAX RICO [facility] Start: 10-03-2024 End: 10-03-2024 Subsequent hospital visit by physician Max Rico MD Work Phone: [facility]iology Comment on above: Ascites Start: 10-02-2024 ambulatory DESTINY~[id number] BEKAH TYLERIN [facility] Start: 09-28-2024 End: 09-28-2024 Emergency department patient visit Pete Ponce MD Work Phone: Emergency Department Comment on above: Chronic liver diseas e and cirrhosis (CMS/HCC) (Primary Dx); Thrombocytopenia ([facility]/HCC) Start: 09-27-2024 End: 09-27-2024 ambulatory DESTINY~[id number] BEKAH GODFREY DESTINY [facility] Start: 09-27-2024 End: 09-27-2024 ambulatory MD GINGER LOREDO) KE [facility] Start: 09-27-2024 End: 09-27-2024 Subsequent hospital visit by physician Ginger Milton MD Work Phone: [facility] Inter[facility]iology Comment on above: Ascites Start: 09-20-2024 End: 09-20-2024 ambulatory KATHARINA L. [facility] Start: 09-20-2024 End: 09-20-2024 [facility] Start: 09-20-2024 End: 09-20-2024 Subsequent hospital visit by physician Minda Gómez MD Work Phone: [facility] Comment on above: Ascites Start: 09-13-2024 End: 09-13-2024 ambulatory MAX RICO [facility] Start: 09-13-2024 End: 09-13-2024 Subsequent hospital visit by physician Max Rico MD Work Phone: [facility] Comment on above: Ascites Start: 09-11-2024 End: 09-11-2024 ambulatory DESTINY~[id number] GODFREY [facility] Start: 09-05-2024 ambulatory KATHARINA [facility] Start: 09-01-2024 End: 09-09-2024 Evaluation and management of inpatient LEAH HECTOR [facility] Start: 08-31-2024 ambulatory MD GINGER (PAUL) KE [facility] Start: 08-30-2024 End: 08-30-2024 ambulatory MINDA [facility] Start: 08-30-2024 End: 08-30-2024 Subsequent hospital visit by physician Minda Gómez MD Work Phone: [facility]iology Comment on above: Ascites Start: 08-22-2024 End: 08-22-2024 Evaluation and management of inpatient MAX [facility] Start: 08-22-2024 End: 08-22-2024 ambulatory MAX RICO [facility] Start: 08-22-2024 End: 08-22-2024 Subsequent hospital visit by physician Max Rico MD Work Phone: [facility] Comment on above: Ascites Start: 08-16-2024 End: 08-16-2024 ambulatory MD GINGER MILTON (PAUL) [facility] Start: 08-16-2024 End: 08-16-2024 Subsequent hospital visit by physician Ginger Milton MD Work Phone: [facility]iology Comment on above: Ascites Start: 08-13-2024 ambulatory MD GINGER MILTON (PAUL) [facility] Start: 08-09-2024 End: 08-09-2024 ambulatory MINDA [facility] Start: 08-09-2024 End: 08-09-2024 Subsequent hospital visit by physician Minda Gómez MD Work Phone: [facility] Comment on above: Ascites Start: 08-08-2024 End: 08-08-2024 ambulatory JOSE ALEJANDRO [facility] Start: 08-02-2024 End: 08-02-2024 Subsequent hospital visit by physician Ginger Milton MD Work Phone: [facility] Comment on above: Ascites Start: 08-02-2024 End: 08-02-2024 ambulatory MD GINGER (ERIK) [facility] Start: 07-27-2024 ambulatory MARCELINA FOSTER [facility] Start: 07-26-2024 ambulatory MD GINGER LOREDO) [facility] Start: 07-26-2024 End: 07-26-2024 Emergency department patient visit Pete Ponce MD Work Phone: Emergency Department Comment on above: Alcoholic cirrhosis of liver with ascites (CMS/HCC) (Primary Dx) Start: 07-25-2024 ambulatory KATHARINA [facility] Start: 07-25-2024 End: 07-25-2024 ambulatory KATHARINA L. [facility] Start: 07-19-2024 End: 07-19-2024 ambulatory [facility] Start: 07-19-2024 End: 07-19-2024 Subsequent hospital visit by physician Minda Gómez MD Work Phone: [facility] Comment on above: Ascites Start: 07-17-2024 ambulatory MINDA [facility] Start: 07-08-2024 End: 07-10-2024 ambulatory PROVIDER EXTERNAL [facility] Start: 07-08-2024 End: 07-10-2024 Emergency department patient visit Lambert Gracie MADERA Work Phone: General Medicine Comment on above: Ascites (Primary Dx) ; Amphetamine-type substance use disorder, severe (CMS/HCC) Start: 07-08-2024 ambulatory INFECTION CONTROL [facility] Start: 07-06-2024 ambulatory MINDA [facility] Start: 07-05-2024 End: 07-05-2024 Emergency department patient visit Pete Ponce MD Work Phone: Emergency Department Comment on above: Cirrhosis of liver ( CMS/HCC) (Primary Dx) Start: 07-02-2024 End: 07-02-2024 Emergency department patient visit Pete Ponce MD Work Phone: Emergency Department Comment on above: Alcoholic cirrhosis of liver with ascites (CMS/HCC) (Primary Dx); Chronic hepatitis C with cirrhosis (CMS/HCC) Start: 06-04-2024 Emergency department patient visit DACIA ACOSTA Facility:[facility] Start: 06-01-2024 End: 06-01-2024 Telephone encounter Katharina Lopez APRN [facility] Comment on above: Patient Update Results Start: 05-31-2024 End: 05-31-2024 ambulatory Katelyn Vivian [facility] Start: 05-31-2024 End: 05-31-2024 Follow-up encounter Katelyn Vivian [facility] Comment on above: SPP Hepatology - Fol low-up (HCV+ lab test) Start: 05-23-2024 End: 05-24-2024 Telephone encounter Dacia Acosta MD Work Phone: [facility] [place] Comment on above: Injection Operator at [facility] Start: 05-22-2024 End: 05-22-2024 Telephone encounter Dacia Acosta MD Work Phone: [facility] [place] Comment on above: Lost medications Start: 05-17-2024 End: 05-17-2024 ambulatory Dacia Acosta MD Work Phone: [facility] [place] Comment on above: [facility] Start: 05-15-2024 End: 05-15-2024 Chart abstracting Erik Salas DO Work Phone: Hematology/Oncology Start: 05-15-2024 End: 05-15-2024 Telephone encounter Claribel Lagunas APRN.TRAVELING PASSENGER AGENT Work Phone: [facility] [place] Comment on above: Results Start: 05-11-2024 Telephone encounter Claribel jeffries APRN.TRAVELING PASSENGER AGENT Work Phone: [facility] [place] Comment on above: Results Start: 05-10-2024 End: 05-10-2024 Subsequent hospital visit by physician Sariah [facility] (I-Stat) Work Phone: Cat Scan Start: 05-10-2024 End: 05-10-2024 Patient encounter procedure Claribel Lagunas APRN.TRAVELING PASSENGER AGENT Work Phone: [facility] [place] Comment on above: Diarrhea, unspecifie d type (Primary Dx); Kidney stone; Acute cystitis without hematuria; Cirrhosis of liver with ascites, unspecified hepatic cirrhosis type (HCC) (HCC); Possible exposure to STD; History of abnormal cervical Pap smear Start: 05-09-2024 Telephone encounter Lynn Kohler MD Work Phone: [facility] Comment on above: Results (Urine Cx mi xed) Start: 05-07-2024 End: 05-07-2024 Patient encounter procedure Therese Dowling APRN.TRAVELING PASSENGER AGENT Work Phone: [facility] Comment on above: Urinary frequency (P rimary Dx); Acute cystitis with hematuria; Abrasion of foot with infection, unspecified laterality, initial encounter; Skin lesion Start: 05-02-2024 Telephone encounter Dacia randhawa MD Work Phone: [facility] [place] Comment on above: Medication Question Start: 04-27-2024 Telephone encounter Franky culver MD Work Phone: Hematology/Oncology Start: 04-20-2024 End: 04-20-2024 Transitional care manage srvc 7 day discharge Mervin Ambrocio APRN.TRAVELING PASSENGER AGENT Work Phone: [facility] [place] Comment on above: Kidney stone (Primar y Dx); Acute cystitis without hematuria; Cirrhosis of liver with ascites, unspecified hepatic cirrhosis type (HCC) (HCC); Thrombocytopenia (HCC); Seasonal allergic rhinitis due to pollen Start: 04-17-2024 Patient Outreach Ne fisher LPN [facility] [place] Comment on above: Transition Of Care ( [facility] D/C 04/13/2024) Start: 03-23-2024 End: 03-23-2024 Emergency department patient visit CARLA SABINANash MADERA [facility] Start: 02-29-2024 ambulatory Dacia brown MD Work Phone: Internal Medicine [place] [id number] Start: 02-07-2024 End: 02-07-2024 Patient encounter procedure Melisa Main MD Work Phone: Dermatology [place] Comment on above: Skin ulcer, limited to breakdown of skin (HCC) (Primary Dx); Excoriation (skin-picking) disorder; MRSA (methicillin resistant Staphylococcus aureus); Local infection of skin and subcutaneous tissue Start: 02-06-2024 ambulatory Dacia brown MD Work Phone: [facility] Comment on above: Hematuria Start: 02-02-2024 Telephone encounter Ashanti Squires PA-C Work Phone: [facility] Comment on above: Results Start: 01-31-2024 End: 01-31-2024 Office outpatient visit 25 minutes Ashanti Squires PA-C Work Phone: [facility] Comment on above: Skin sore (Primary D x); Gross hematuria; Acute cystitis with hematuria; Anxiety with depression Start: 01-19-2024 Refill Dacia brown MD Work Phone: [facility] Comment on above: Refill Request Start: 12-28-2023 End: 12-28-[address] Dacia Acosta Work Phone: [facility] Work Phone: Start: 12-28-2023 End: 12-28-2023 Dr. Dacia Acosta Work Phone: [facility]-Endoscopy Work Phone: Start: 12-13-2023 End: 12-13-2023 Office outpatient visit 15 minutes Mervin Ambrocio APRN.CNP Work Phone: [facility] Comment on above: Chronic hepatitis C without hepatic coma (HCC) (Primary Dx); Cirrhosis of liver with ascites, unspecified hepatic cirrhosis type (HCC) (HCC); Other ascites; Nausea and vomiting, unspecified vomiting type Start: 12-12-2023 Telephone encounter Dacia randhawa MD Work Phone: [facility] Comment on above: Appointment; Patient Update Start: 12-09-2023 End: 12-09-2023 Emergency department patient visit Dr. Dacia Acosta Work Phone: [facility] Work Phone: Start: 12-09-2023 End: 12-09-2023 Dr. Dacia Acosta Work Phone: [facility]-Emergency Department Work Phone: Start: 12-07-2023 Dr. Dacia zhou Work Phone: [facility] Inpatient Physicians Work Phone: Start: 12-07-2023 ambulatory [facility] yasmin CAO Work Phone: Compressor Mechanic Bus Management Start: 12-07-2023 Dr. Dacia zhou Work Phone: [facility] Start: 12-06-2023 Dr. Dacia zhou Work Phone: [facility] Work Phone: Start: 12-06-2023 Dr. Dacia zhou Work Phone: [facility] Start: 12-05-2023 Dr. Dacia zhou Work Phone: [facility] Start: 12-05-2023 Dr. Dacia zhou Work Phone: [facility] Start: 12-04-2023 End: 12-07-2023 Evaluation and management of inpatient Dr. Dacia Acosta Work Phone: [facility]-Progressive Care Unit Work Phone: Start: 12-04-2023 End: 12-07-2023 Dr. [facility] Start: 11-28-2023 Telephone encounter Dacia randhawa MD Work Phone: [facility] Comment on above: Results Start: 11-26-2023 End: 11-26-2023 Patient encounter procedure Dacia Acosta MD Work Phone: [facility] Comment on above: Cirrhosis of liver w ith ascites, unspecified hepatic cirrhosis type (HCC) (HCC) (Primary Dx); Recurrent UTI (urinary tract infection); Chronic hepatitis C without hepatic coma (HCC); Nicotine use disorder, F17.2; Gastroesophageal reflux disease, unspecified whether esophagitis present; Major depressive disorder, remission status unspecified, unspecified whether recurrent Start: 11-25-2023 ambulatory Priscilla hoffman RN Work Phone: [employer] Start: 11-24-2023 Patient Outreach Soco johnson [facility] Work Phone: Pharmacy Comment on above: Transition Of Care ( [facility] Pharmacy-Hospital discharge 11/23/23) Start: 11-18-2023 End: 11-23-2023 Evaluation and management of inpatient KOKO RUIZ Facility:[id number] Start: 11-17-2023 End: 11-18-2023 Emergency department patient visit DACIA ACOSTA Facility:[facility] Start: 11-11-2023 Telephone encounter Dacia randhawa MD Work Phone: [facility] Comment on above: Patient Update Start: 11-10-2023 End: 11-10-2023 Emergency department patient visit Dr. Dacia Acosta Work Phone: [facility] Work Phone: Start: 11-10-2023 End: 11-10-2023 Dr. Dacia Acosta Work Phone: [facility]-Emergency Department Work Phone: Start: 11-07-2023 Telephone encounter Dacia randhawa MD Work Phone: [facility] Comment on above: Abdominal Pain Start: 11-07-2023 End: 11-07-2023 Emergency department patient visit Dr. Dacia Acosta Work Phone: [facility]-Emergency Department Work Phone: Start: 11-07-2023 End: 11-07-2023 Dr. Dacia Acosta Work Phone: [facility]-Emergency Department Work Phone: Start: 11-05-2023 End: 11-05-2023 Emergency department patient visit Dr. Dacia Acosta Work Phone: [facility]-Emergency Department Work Phone: Start: 11-05-2023 End: 11-05-2023 Dr. Dacia Acosta Work Phone: [facility]-Emergency Department Work Phone: Start: 11-03-2023 Telephone encounter Dacia randhawa MD Work Phone: [facility] [place] Comment on above: Patient Question Start: 11-01-2023 End: 11-01-2023 Patient encounter procedure Latasha William PA-C Work Phone: [facility] Comment on above: Open wound of skin ( Primary Dx) Start: 2023 Non-patient / Non-visit Dr. Teddy Acosta Work Phone: [facility] Work Phone: Start: 2023 Dr. Dacia zhou Work Phone: [facility] Work Phone: Start: 10-07-2023 End: 2023 Evaluation and management of inpatient [facility] Work Phone: Start: 10-07-2023 Non-patient / Non-visit Dr. Teddy Acosta Work Phone: [facility] Work Phone: Start: 10-07-2023 Dr. Dacia zhou Work Phone: [facility] Work Phone: Start: 10-06-2023 End: 2023 Evaluation and management of inpatient Dr. Dacia Acosta Work Phone: [facility] Surgical 3 Work Phone: Start: 10-06-2023 Non-patient / Non-visit Dr. Teddy Acosta Work Phone: [facility] Work Phone: Start: 10-06-2023 End: 2023 Dr. Dacia Aocsta Work Phone: [facility] 3 Work Phone: Start: 09-24-2023 End: 09-25-2023 Emergency department patient visit Dr. Dacia [facility]osta [facility] Start: 09-24-2023 End: 09-25-2023 Dr. Dacia [facility]osta [facility] Start: 09-16-2023 Telephone encounter Emperatriz [facility] Clinical Communication Start: 09-09-2023 End: 09-15-2023 Evaluation and management of inpatient [facility] Start: 09-09-2023 End: 09-15-2023 Evaluation and management of inpatient Lenny Macdonald MD Work Phone: [facility] Res[facility] Unit 7W Comment on above: Small bowel obstruct ion (HCC) (Primary Dx) Start: 08-22-2023 End: 08-22-2023 Emergency department patient visit Dr. Dacia Acosta Work Phone: [facility]-Emergency Department Work Phone: Start: 08-22-2023 End: 08-22-2023 Dr. Dacia Acosta Work Phone: [facility]-Emergency Department Work Phone: Start: 08-15-2023 Non-patient / Non-visit Dr. Teddy Acosta Work Phone: [facility] Start: 08-15-2023 Dr. Dacia zhou Work Phone: [facility] Start: 08-15-2023 End: 08-15-[address] Dacia Acosta Work Phone: [facility] Work Phone: Start: 08-15-2023 End: 08-15-[address] Dacia Acosta Work Phone: [facility]-Ultrasound, [facility] Work Phone: Start: 08-15-2023 End: 08-15-2023 Dr. Dacia Acosta Work Phone: [facility]-Ultrasound, [facility] Work Phone: Start: 07-22-2023 End: 07-22-[address] Dacia Acosta Work Phone: [facility] Gastroenterology Work Phone: Start: 07-22-2023 End: 07-22-2023 Dr. Dacia Acosta Work Phone: [facility] Gastroenterology Work Phone: Start: 07-21-2023 Non-patient / Non-visit Dr. Teddy Acosta Work Phone: [facility] Start: 07-21-2023 Dr. Dacia zhou Work Phone: [facility] Start: 07-21-2023 Non-patient / Non-visit Dr. Teddy Acosta Work Phone: [facility] Work Phone: Start: 07-21-2023 Dr. Dacia zhou Work Phone: [facility] Work Phone: Start: 07-20-2023 End: 07-21-2023 [facility] Start: 07-20-2023 End: 07-21-[address] Dacia Acosta Work Phone: [facility] Work Phone: Start: 07-20-2023 End: 07-21-2023 Dr. Dacia Acosta Work Phone: [facility] Surgical 2 Work Phone: Start: 04-25-2023 End: 04-25-2023 [facility] Start: 03-22-2023 Refill Dacia brown MD Work Phone: [facility] Comment on above: Refill Request Start: 01-27-2023 Telephone encounter Dacia randhawa MD Work Phone: [facility] Comment on above: Medication Request Start: 01-25-2023 Documentation procedure Mammog uriel Coordinator [facility] Start: 01-25-2023 Letter encounter Mammography Coordinator [facility] Department Start: 01-25-2023 Telephone encounter Divya andino MD Work Phone: Mammography Comment on above: Mammogram Result Pete l Back Start: 01-24-2023 End: 01-24-2023 Subsequent hospital visit by physician Screen Mammo [facility] Mammogram Comment on above: Encounter for screen ing mammogram for breast cancer [Z12.31] Start: 12-02-2022 End: 12-02-2022 Patient encounter procedure Joselito GARCIA Work Phone: [facility] Comment on above: Skin infection (Prim randi Dx) Start: 10-02-2022 Telephone encounter Kaylin sogn HEAT TREAT TECHNICIAN.TRAVELING PASSENGER AGENT Work Phone: [facility] Comment on above: Results Start: 09-29-2022 End: 09-29-2022 Patient encounter procedure Lynn Prabhakar MD Work Phone: [facility] Comment on above: Cellulitis of chin ( Primary Dx); Picking own skin; URI, acute Start: 09-15-2022 End: 09-15-[address] Dacia Acosta Work Phone: [facility] Work Phone: Comment on above: Population Health Na vigation Outreach (HCC Gap/Medicaid) Start: 09-15-2022 Non-patient / Non-visit Dr. Teddy Acosta Work Phone: [facility] Start: 09-15-2022 End: 09-15-2022 Admission to same day surgery center Dr. Dacia Acosta Work Phone: [facility]-Endoscopy Start: 08-27-2022 End: 08-27-[address] Dacia Acosta Work Phone: [facility] Work Phone: Start: 08-27-2022 End: 08-27-[address] Dacia Acosta Work Phone: [facility]-Laboratory Start: 08-27-2022 End: 08-27-[address] Dacia Acosta Work Phone: [facility] Gastroenterology Start: 06-22-2022 Refill Tresa Sandoval APRN.CNP Work Phone: [facility] Comment on above: Refill Request Start: 05-24-2022 ambulatory Dacia brown MD Work Phone: [facility] Start: 05-24-2022 Telephone encounter Dacia randhawa MD Work Phone: [facility] Comment on above: er follow up questio ns Transition Of Care Start: 05-21-2022 Non-patient / Non-visit Dr. Teddy Acotsa Work Phone: [facility] Phys[facility] Start: 05-20-2022 Non-patient / Non-visit Dr. Teddy Acosta Work Phone: [facility] Start: 05-19-2022 End: 05-21-2022 Evaluation and management of inpatient [facility] 3 Start: 05-15-2022 End: 05-15-2022 Emergency department patient visit [facility] Start: 05-15-2022 ambulatory Diya Feliciano RN NURSE O N CALL Comment on above: Abscess; Headache Start: 05-10-2022 End: 05-10-2022 Patient encounter procedure Dacia Acosta MD Work Phone: [facility] Comment on above: Dermatitis (Primary Dx) Start: 05-09-2022 End: 05-09-2022 Patient encounter procedure Blanca Dawson APRN.TRAVELING PASSENGER AGENT Work Phone: [facility] Comment on above: Wound check, abscess (Primary Dx) Start: 05-07-2022 Telephone encounter Hugo santana PA-C Work Phone: Dermatology [facility] Comment on above: Patient Question Start: 03-24-2022 ambulatory Dacia brown MD Work Phone: Internal Medicine [facility] [place] [facility] Start: 03-11-2022 End: 03-11-2022 Patient encounter procedure Tresa Sandoval APRN.TRAVELING PASSENGER AGENT Work Phone: [facility] Comment on above: Bacterial skin infec tion (Primary Dx); Acne vulgaris; Chronic midline low back pain with bilateral sciatica Start: 03-11-2022 Telephone encounter Dacia randhawa MD Work Phone: [facility] Comment on above: Refill Request Start: 01-12-2022 Telephone encounter Blanca Dawson APRN.TRAVELING PASSENGER AGENT Work Phone: [facility] Comment on above: Results Start: 01-11-2022 End: 01-11-2022 Patient encounter procedure Becca Singer APRN.TRAVELING PASSENGER AGENT Work Phone: [facility] Comment on above: Viral illness (Prima ry Dx) Start: 08-04-2018 End: 08-04-2018 Patient encounter procedure [facility] Procedures Date Procedure Procedure Detail Performing Clinician Start: 07-25-2025 Hepatitis C viral load Zebulun Beam CENTRIFUGAL CASTING MACHINE OPERATOR-C Work Phone: Comment on above: Result Units: log10 IU/mL Start: 07-25-2025 Hepatitis C virus genotype determination Zebulun Beam CENTRIFUGAL CASTING MACHINE OPERATOR-C Work Phone: Comment on above: Performed at: [facility] [id number] [place], [place] [id number] Director: Tee Reyna PhD, Phone: [phone] at: [facility] [address] [id number] Director: Michelle Rose MD, Phone: [phone] Start: 07-16-2025 Ultrasonography of abdomen Zebulun Beam CENTRIFUGAL CASTING MACHINE OPERATOR-C Work Phone: Start: 07-15-2025 Urnls dip stick/tablet reagent auto microscopy Zebulun Beam CENTRIFUGAL CASTING MACHINE OPERATOR-C Work Phone: Start: 07-15-2025 Estimated creatinine clearance Zebulun B eam CENTRIFUGAL CASTING MACHINE OPERATOR-C Work Phone: Start: 07-11-2025 Radex spine lumbosacral 2/3 views Zebulu n Beam CENTRIFUGAL CASTING MACHINE OPERATOR-C Work Phone: Start: 07-11-2025 Estimated creatinine clearance Zebulun B eam CENTRIFUGAL CASTING MACHINE OPERATOR-C Work Phone: Start: 07-11-2025 Methadone measurement, urine Zebulun Joseline m CENTRIFUGAL CASTING MACHINE OPERATOR-C Work Phone: Start: 07-11-2025 Urnls dip stick/tablet reagent auto microscopy Zebulun Beam CENTRIFUGAL CASTING MACHINE OPERATOR-C Work Phone: Start: 05-20-2025 Blood count smear mcrscp w/mnl difrntl wbc count [facility] Work Phone: Start: 05-20-2025 Calculation of international normalized ratio [facility] Work Phone: Start: 05-20-2025 Mean corpuscular hemoglobin concentration determination [facility] Work Phone: Start: 05-20-2025 Nucleated red blood cell count procedure [facility] Work Phone: Start: 05-20-2025 Platelet mean volume determination [facility] Work Phone: Start: 05-20-[address] 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 [A ] [facility] Reference Range: NegativeHomogeneous Pattern CENTRIFUGAL CASTING MACHINE OPERATOR NOLAB Reference Range: .Nucleolar Pattern CENTRIFUGAL CASTING MACHINE OPERATOR NOLAB Reference Range: .Speckled Pattern 1:320 [H ] [facility] Reference Range: <1:40Centromere Pattern CENTRIFUGAL CASTING MACHINE OPERATOR NOLAB Reference Range: .Spindle Apparatus Pattern CENTRIFUGAL CASTING MACHINE OPERATOR NOLAB Reference Range: .Nuclear Membrane Pattern CENTRIFUGAL CASTING MACHINE OPERATOR NOLAB Reference Range: .Midbody Pattern CENTRIFUGAL CASTING MACHINE OPERATOR NOLAB Reference Range: .Nuclear Dot Pattern CENTRIFUGAL CASTING MACHINE OPERATOR NOLAB Reference Range: .PCNA Pattern CENTRIFUGAL CASTING MACHINE OPERATOR NOLAB Reference Range: .Centriole Pattern CENTRIFUGAL CASTING MACHINE OPERATOR NOLAB Reference Range: .Note: Comment [facility] Reference Range: .DEISY performed by Indirect Fluorescent Antibody (IFA)ANCA by IFA (RDL) Negative [facility] Reference Range: NegativeAnti-Chromatin Ab, IgG (RDL) <20 Units [facility] Reference Range: <20Anti-Liver/Kidney Ab (RDL) <20 Units [facility] Reference Range: <20 Negative: <20 Equivocal: 20 - 25 Positive: >25Anti-Mitochondrial M2 Ab (RDL) <20 Units [facility] Reference Range: <20 Negative: <20 Equivocal: 20 - 25 Positive: >25Anti-Soluble Liver Ag Ab (RDL) <9.0 Units [facility] Reference Range: 0.0 - 20.0 Negative: 0.0 - 20.0 Equivocal: 20.1 - 24.9 Positive: >24.9Anti-Smooth Muscle Ab by IFA 1:160 [H ] [facility] Reference Range: <1:20Anti-Mitochondrial Ab by IFA <1:20 [facility] Reference Range: <1:20 Interpretation for Anti-Chromatin: Negative: <20 Moderate Positive: 20 - 60 Strong Positive: >60Performed at: [facility] - [facility] [address] [place] [id number] Director: Anjelica Carney MD, Phone: [phone] at: [employer] [id number] Director: Tee Reyna PhD, Phone: [phone] Test Ordered: [id number] Primary Biliary Cholangitis PrAnti-Nuclear Ab by IFA (RDL) Positive [A ] [facility] Reference Range: NegativeHomogeneous Pattern CENTRIFUGAL CASTING MACHINE OPERATOR NOLAB Reference Range: .Nucleolar Pattern CENTRIFUGAL CASTING MACHINE OPERATOR NOLAB Reference Range: .Speckled Pattern 1:160 [H ] [facility] Reference Range: <1:40Centromere Pattern CENTRIFUGAL CASTING MACHINE OPERATOR NOLAB Reference Range: .Spindle Apparatus Pattern CENTRIFUGAL CASTING MACHINE OPERATOR NOLAB Reference Range: .Nuclear Membrane Pattern CENTRIFUGAL CASTING MACHINE OPERATOR NOLAB Reference Range: .Midbody Pattern CENTRIFUGAL CASTING MACHINE OPERATOR NOLAB Reference Range: .Nuclear Dot Pattern CENTRIFUGAL CASTING MACHINE OPERATOR NOLAB Reference Range: .PCNA Pattern CENTRIFUGAL CASTING MACHINE OPERATOR NOLAB Reference Range: .Centriole Pattern CENTRIFUGAL CASTING MACHINE OPERATOR NOLAB Reference Range: .Note: Comment [facility] Reference Range: .DEISY performed by Indirect Fluorescent Antibody (IFA)Anti-Mitochondrial Ab by IFA <1:20 [facility] Reference Range: <1:20Anti-Mitochondrial M2 Ab (RDL) <20 Units [facility] Reference Range: <20 Negative: <20 Equivocal: 20 - 25 Positive: >[id number] Ab (RDL) <20 Units [facility] Reference Range: <[id number] Ab (RDL) <20 Units [facility] Reference Range: <20Anti-Smooth Muscle Ab by IFA 1:80 [H ] [facility] Reference Range: <1:20Performed at: [facility] [address] [id number] Director: Anjelica Carney MD, Phone: [phone] at: [facility] [facility] [id number] [place], [place] [id number] Director: Tee Reyna PhD, Phone: [phone] Start: 05-07-2025 Plain x-ray of humerus [facility] Work Phone: Start: 05-07-2025 XR forearm, 2 views [facility] Work Phone: Start: 03-27-2025 X-ray of chest, PA and lateral views [facility] Work Phone: Start: 03-27-2025 Blood count smear mcrscp w/mnl difrntl wbc count [facility] Work Phone: Start: 03-27-2025 Mean corpuscular hemoglobin concentration determination [facility] Work Phone: Start: 03-27-2025 Nucleated red blood cell count procedure [facility] Work Phone: Start: 03-27-2025 Platelet mean volume determination [facility] Work Phone: Start: 03-15-2025 Esophagogastroduodenoscopy [facility] Work Phone: Start: 03-07-2025 Albumin/Globulin ratio [facility] Work Phone: Start: 03-07-2025 Ircop-9-Jbworskekbf measurement [facility] Work Phone: Comment on above: [employer] Electrochemiluminescen ce Immunoassay(ECLIA)Values obtained with different assay methods or kits cannotbe used interchangeably. Results cannot be interpreted asabsolute evidence of the presence or absence of malignantdisease.This test is not interpretable in females. Start: 03-07-2025 DEISY measurement [facility] Work Phone: Comment on above: Performed at: [address] [id number] Director: Tee Reyna PhD, Phone: [phone] Start: 03-07-2025 Antibody to centromere measurement [facility] Work Phone: Comment on above: Test not performed Start: 03-07-2025 Antibody to extractable nuclear antigen measurement [facility] Work Phone: Comment on above: Test not performed Start: 03-07-2025 Antibody to THANIA-1 measurement [facility] Work Phone: Comment on above: Test not performed Start: 03-07-2025 Antibody to lupus La protein measurement [facility] Work Phone: Comment on above: Test not performed Start: 03-07-2025 Antibody to SS-A measurement [facility] Work Phone: Comment on above: Test not performed Start: 03-07-2025 Autoantibody measurement [facility] Work Phone: Comment on above: Test not performed Start: 03-07-2025 Blood count smear mcrscp w/mnl difrntl wbc count [facility] Work Phone: Start: 03-07-2025 CA 125 measurement [facility] Work Phone: Start: 03-07-2025 Calculation of international normalized ratio [facility] Work Phone: Start: 03-07-2025 Ceruloplasmin measurement [facility] Work Phone: Start: 03-07-2025 Copper measurement, serum [facility] Work Phone: Comment on above: Detection Limit = 5 Start: 03-07-2025 Hepatitis A virus antibody, IgM type [facility] Work Phone: Comment on above: A negative anti-HAV IgM result suggests no recent orcurrent HAV infection. Start: 03-07-2025 Hepatitis B core antibody measurement, IgM type [facility] Work Phone: Start: 03-07-2025 Hepatitis C antibody measurement [facility] Work Phone: Comment on above: Client Requested Flag Start: 03-07-2025 Hepatitis C viral load Dr. Shon Quintero MD Work Phone: Comment on above: Result Units: log10 IU/mL Start: 03-07-2025 Hepatitis C virus RNA assay [facility] Work Phone: Start: 03-07-2025 Iadna hepatitis c quant & reverse director of food and nutrition services [facility] Work Phone: Comment on above: Result Units: log10 IU/mL Start: 03-07-2025 Immunoglobulin G subclass, G4 measurement [facility] Work Phone: Start: 03-07-2025 Immunoglobulin M measurement [facility] Work Phone: Start: 03-07-2025 Mean corpuscular hemoglobin concentration determination [facility] Work Phone: Start: 03-07-2025 Measurement of haptoglobin [facility] Work Phone: Comment on above: Performed at: - [facility] [address] [id number] [place], [place] [id number] Director: Tee Reyna PhD, Phone: [phone] at: - [facility] [id number] Director: Michelle Rose MD, Phone: [phone] Start: 03-07-2025 Nucleated red blood cell count procedure [facility] Work Phone: Start: 03-07-2025 Platelet mean volume determination [facility] Work Phone: Start: 03-07-2025 INDUSTRIAL ELECTRICIAN antibody measurement [facility] Work Phone: Comment on above: Test not performed Start: 03-07-2025 Total cholesterol:HDL ratio measurement [facility] Work Phone: Start: 03-07-2025 Total iron binding capacity measurement [facility] Work Phone: Start: 03-07-2025 Urine lambda light chain measurement [facility] Work Phone: Start: 03-07-2025 Vitamin D, 25-hydroxy measurement [facility] Work Phone: Comment on above: Vitamin D StatusDeficiency: <20 ng/mL (5 0nmol/L)Insufficiency: 20-30 ng/mL (50-75 nmol/L)Sufficiency: 30-100 ng/mL (75-250 nmol/L)Toxicity: >100 ng/mL (>250 nmol/L) Start: 03-07-2025 Ultrasonography of abdomen [facility] Work Phone: Start: 02-26-2025 Procedure [facility] Work Phone: Comment on above: Test Ordered: [id number] Drug Screen 7 w/Con f, WBETHYL ALCOHOL, ENZ Negative gm/dL MX Reference Range: Cutoff:0.020AMPHETAMINES, [place] Negative ng/mL MX Reference Range: Cutoff:50COCAINE/METABOLITE,IA Negative ng/mL MX Reference Range: Cutoff:25PHENCYCLIDINE, [place] Negative ng/mL MX Reference Range: Cutoff:8THC (MARIJUANA) MTB,IA Negative ng/mL MX Reference Range: Cutoff:5OPIATES, [place] Negative ng/mL MX Reference Range: Cutoff:5OXYCODONES, [place] Note: [A ] ng/mL MX ++POSITIVE++ Reference Range: Cutoff:5This test was developed and its performance characteristicsdetermined by [employer]. It has not been cleared or approvedby the Food and Drug Administration.Oxycodones Confirmation Positive MX Reference Range: .Oxycodone 28.7 ng/mL MX Reference Range: .Oxymorphone Negative ng/mL MX Reference Range: .Expected metabolism of oxycodone class drugs: Parent Drug Detected Metabolites Oxycodone: Oxymorphone Oxymorphone: NoneConfirmation threshold: 1.0 ng/mLPerformed at: [employer] [address] [id number] Director: Anahi Rueda [facility], Phone: [phone] at: [facility] [employer] [id number] Director: Tee eRyna PhD, Phone: [phone] Start: 02-26-2025 Blood count smear mcrscp w/mnl difrntl wbc count [facility] Work Phone: Start: 02-26-2025 Mean corpuscular hemoglobin concentration determination [facility] Work Phone: Start: 02-26-2025 Nucleated red blood cell count procedure [facility] Work Phone: Start: 02-26-2025 Platelet mean volume determination [facility] Work Phone: Start: 02-22-2025 Blood count smear mcrscp w/mnl difrntl wbc count [facility] Work Phone: Start: 02-22-2025 Estimated creatinine clearance [facility] Work Phone: Start: 02-22-2025 Mean corpuscular hemoglobin concentration determination [facility] Work Phone: Start: 02-22-2025 Nucleated red blood cell count procedure [facility] Work Phone: Start: 02-22-2025 Platelet mean volume determination [facility] Work Phone: Start: 02-22-2025 Triacylglycerol lipase measurement [facility] Work Phone: Start: 02-21-2025 CT of abdomen and pelvis without contrast [facility] Work Phone: Start: 02-21-2025 X-ray of chest, PA and lateral views [facility] Work Phone: Start: 02-07-2025 Blood count smear mcrscp w/mnl difrntl wbc count [facility] Work Phone: Start: 02-07-2025 Mean corpuscular hemoglobin concentration determination [facility] Work Phone: Start: 02-07-2025 Nucleated red blood cell count procedure [facility] Work Phone: Start: 02-07-2025 Platelet mean volume determination [facility] Work Phone: Start: 02-04-2025 Computed tomography of abdomen and pelvis with intravenous contrast [facility] Work Phone: Start: 02-04-2025 Blood count smear mcrscp w/mnl difrntl wbc count [facility] Work Phone: Start: 02-04-2025 Estimated creatinine clearance [facility] Work Phone: Start: 02-04-2025 Mean corpuscular hemoglobin concentration determination [facility] Work Phone: Start: 02-04-2025 Nucleated red blood cell count procedure [facility] Work Phone: Start: 02-04-2025 Platelet mean volume determination [facility] Work Phone: Start: 02-04-2025 Triacylglycerol lipase measurement [facility] Work Phone: Start: 12-18-2024 Screening mammography bi 2-view breast inc cad Self Referral Work Phone: Start: 12-18-2024 Mammography MD GINGER MILTON (PAUL) Start: 12-13-2024 CBC W/DIFFERENTIAL Abelino New MD Work Phone: Start: 12-13-2024 Comprehensive metabolic 2000 panel - Serum or Plasma Abelion New MD Work Phone: Start: 12-12-2024 Mri abdomen w/o & w/contrast material Lyssa Farrell APRN Work Phone: Start: 12-12-2024 CBC W/DIFFERENTIAL Abelino New MD Work Phone: Start: 12-12-2024 Comprehensive metabolic 2000 panel - Serum or Plasma Abelino New MD Work Phone: Start: 12-11-2024 Radex spine lumbosacral 2/3 views Isabella Ch MD Work Phone: Start: 12-11-2024 Comprehensive metabolic 2000 panel - Serum or Plasma Abelino New MD Work Phone: Start: 12-11-2024 CBC W/DIFFERENTIAL Abelino New MD Work Phone: Start: 12-10-2024 UA FOR INFECTION (REFLEX CULTURE) Kesha Hector DO Work Phone: Start: 12-10-2024 Us abdominal real time w/image limited Miranda Marques HEAT TREAT TECHNICIAN Work Phone: Start: 12-10-2024 Abdom paracentesis dx/ther [...] Milton MD Work Phone: Start: 12-10-2024 NON CIGAR WRAPPER TENDER AUTOMATIC CASES Ginger Milton MD Work Phone: Start: 12-10-2024 PROTEIN BODY FLUID Ginger Milton MD Work Phone: Start: 12-10-2024 Glucose [Mass/volume] in Serum or Plasma Leah Hector DO Work Phone: Start: 12-10-2024 AFP SERUM TUMOR MARKER Miranda Marques APR N Work Phone: Start: 12-10-2024 Ammonia [Mass/volume] in Plasma Abelino New MD Work Phone: Start: 12-10-2024 CBC W/DIFFERENTIAL Abelino New MD Work Phone: Start: 12-10-2024 Comprehensive metabolic 2000 panel - Serum or Plasma Abelino New MD Work Phone: Start: 12-10-2024 PT and aPTT panel - Platelet poor plasma by Coagulation assay Abelino New MD Work Phone: Start: 12-10-2024 BLOOD CULTURE, PERIPHERAL Abelino New MD Work Phone: Start: 12-10-2024 Comprehensive metabolic 2000 panel - Serum or Plasma Leah Hector DO Work Phone: Start: 12-10-2024 LACTIC ACID, VENOUS Leah Hector DO Work Phone: Start: 12-10-2024 Lipase [Enzymatic activity/volume] in Serum or Plasma Leah Mackenzieer DO Work Phone: Start: 12-10-2024 PROCALCITONIN, QN, S Leah Mackenzieer DO Work Phone: Start: 12-10-2024 Basic metabolic 2000 panel - Serum or Plasma Leah Hector DO Work Phone: Start: 12-10-2024 CBC W/DIFFERENTIAL Leah Hector DO Work Phone: Start: 12-10-2024 CK Leah Hector DO Work Phone: Start: 12-06-2024 PARACENTESIS Max Rcio MD Work Phone: Start: 11-19-2024 CBC W/DIFFERENTIAL Lambertanil Christie DO Work Phone: Start: 11-19-2024 Comprehensive metabolic 1999 panel - Serum or Plasma Lambert Christie DO Work Phone: Start: 11-19-2024 PROCALCITONIN, QN, S Lambertanil Christie DO Work Phone: Start: 11-19-2024 Radiologic exam chest 2 views Lambert C uliseslinreno DO Work Phone: Start: 10-04-2024 Radiologic exam [...] Work Phone: Start: 07-08-2024 CBC W/DIFFERENTIAL Lambert Christie DO Work Phone: Start: 07-08-2024 Comprehensive metabolic 2000 panel - Serum or Plasma Lambert Christie DO Work Phone: Start: 07-08-2024 PT and aPTT panel - Platelet poor plasma by Coagulation assay Lambert Christie DO Work Phone: Start: 07-05-2024 CBC W/DIFFERENTIAL [...] Urnls dip stick/tablet rgnt auto w/o microscopy Claribel Lagunas APRN.TRAVELING PASSENGER AGENT Work Phone: Start: 05-07-2024 Urnls dip stick/tablet rgnt auto w/o microscopy Blanca Dawson APRN.TRAVELING PASSENGER AGENT Work Phone: Start: 01-31-2024 End: 01-31-2024 Cul bact xcpt urine blood/stool aerobic isol Ashanti Squires PA-C Work Phone: Start: 01-31-2024 Urnls dip stick/tablet rgnt auto w/o microscopy Ashanti Squires PA-C Work Phone: Start: 12-28-[address] Dacia herbert Work Phone: Start: 12-09-2023 Diagnostic radiography of abdomen Dr. Teddy Acosta Work Phone: Start: 12-05-2023 Anaerobic microbial [...] 11-05-2023 SARS-CoV-2, Influenza & RSV (PCR) Dr. Teddy Acosta Work Phone: Start: 11-05-2023 Urine culture [...] 09-24-2023 SARS-CoV-2, Influenza & RSV (PCR) Dr. Teddy Acosta Work Phone: Start: 09-24-2023 Dr. Dacia Acosta Work Phone: Start: 09-15-2023 Basic metabolic panel calcium total Saima Lim MD Work Phone: Start: 09-14-2023 Abdom paracentesis dx/ther w/imaging guidance Saima Lim MD Work Phone: Start: 09-14-2023 Blood count complete automated Susi Lim MD Work Phone: Start: 09-14-2023 Basic metabolic panel calcium total Saima Lim MD Work Phone: Start: 09-13-2023 Basic metabolic panel calcium total Saima Lim MD Work Phone: Start: 09-12-2023 Comprehensive metabolic panel Cindi rome MD Work Phone: Start: 09-11-2023 Comprehensive metabolic panel Cindi rome MD Work Phone: Start: 09-10-2023 Prothrombin time Tony Levin MD Work Phone: Start: 09-10-2023 Abdom paracentesis [...] Start: 09-09-2023 Radiologic exam chest single view Sugey GARCIA Work Phone: Start: 08-22-2023 Viral antigen [...] X-ray Ligation of fallopian tube Nuvia EMILY ORTASTORMY MADERA Respiratory Panel (PCR) Dr. Dacia Acosta Work Phone: Urine culture Dr. Dacia zhou Work Phone: Viral antigen assay Plan of Treatment Date Care Activity Detail Author Start: 01-13-2034 RSV Immunization aged 60 or older (1 - 1-dose 60+ series) RSV Immunization aged 60 or older (1 - 1-dose 60+ series) [facility] Start: 07-20-2033 DTAP/TDAP/TD VACCINE (2 - Td or Tdap) DTAP/TDAP/TD VACCINE (2 - Td or Tdap) [facility] Start: 07-20-2033 DTaP/Tdap/Td Vaccines (2 - Td or Tdap) DTaP/Tdap/Td Vaccines (2 - Td or Tdap) [facility] Start: 07-20-2033 Urine microalbumin profile DTaP,Tdap,Td Vaccine (2 - Td or Tdap) [facility] Start: 06-04-2027 Diabetes Screening Diabetes Screening [facility] Start: 05-10-2027 Diabetes Screening Diabetes Screening [facility] Start: 11-23-2026 Diabetes Screening Diabetes Screening [facility] Start: 09-15-2026 Diabetes Screening Diabetes Screening [facility] Start: 12-19-2025 Screening for malignant neoplasm of breast ANNUAL MAMMOGRAM [facility] Start: 07-25-2025 End: 07-25-2025 Patient encounter procedure Departed Clinical -Laboratory Work Phone: Start: 07-25-2025 End: 07-25-2025 Patient encounter procedure Thrombocytopenia -[facility] Work Phone: Start: 07-25-2025 X-ray of lumbosacral spine L/S Spine Bending Flex/Ext [facility] Start: 07-25-2025 End: 07-25-2025 Patient encounter procedure -[facility] Work Phone: Start: 07-16-2025 Ultrasonography of abdomen Abdomen Limited [facility] Start: 07-16-2025 End: 07-16-2025 Patient encounter procedure Departed Clinical -Ultrasound [facility] Work Phone: Start: 07-15-2025 [facility] Start: 07-15-2025 End: 07-15-2025 Emergency department patient visit Departed Emergency -Emergency Department Work Phone: Start: 07-11-2025 [facility] Start: 05-27-2025 Influenza vaccination Influenza Vaccine (#1) [facility] Start: 05-20-2025 Procedure [facility] Start: 03-15-2025 Endoscopy upper small intestine w/biopsy [facility] Start: 03-15-2025 Patient discharge [facility] Start: 03-07-2025 Gamma glutamyl transferase measurement [facility] Start: 03-07-2025 IgG subclass panel [Mass/volume] - Serum [facility] Start: 03-07-2025 Serum immunofixation [facility] Start: 02-26-2025 End: 02-26-2025 [facility] Start: 02-26-2025 Procedure [facility] [facility] Start: 02-26-2025 Assay of ammonia [facility] Start: 02-26-2025 Assay of thyroid stimulating hormone tsh [facility] Start: 02-26-2025 Blood count complete auto&auto difrntl wbc [facility] Start: 02-26-2025 Collection venous blood venipuncture [facility] Start: 02-26-2025 Comprehensive metabolic panel [facility] Start: 02-26-2025 Control nasal hemorrhage anterior simple [facility] Start: 02-22-2025 [facility] Start: 02-05-2025 End: 02-05-2025 Patient encounter procedure 02/05/2025 11:00 AM EDT Office Visit [place] Ar[facility] Diaz [address] [place] [address] [place] [address] Destiny Godfrey MD 122 [facility] [place] [address] Judie Gill APRN [address] [place], [place] [id number] [facility] Start: 02-04-2025 [facility] Start: 01-14-2025 Subsequent hospital visit by physician 01/14/2025 Hospital Encounter Endoscopy [address] [place] [address] Katharina Welsh MD [address] [facility] [address] [place] [address] Endoscopy Start: 12-18-2024 End: 12-18-2024 Patient encounter procedure 12/18/2024 11:30 AM EDT [facility]ointment [facility] [address] [phone] Referral, Self [address] [place] [address] [facility] Start: 12-17-2024 End: 12-17-2024 Patient encounter procedure 12/17/2024 3:00 PM EDT Office Visit [facility] [address] [place] [address], [address] [place] [phone] Lyssa Farrell APRN [address] [place] [address] [place] [address] [facility] Start: 11-29-2024 Subsequent hospital visit by physician 11/29/2024 Hospital Encounter Endoscopy [address] [place], [place] [phone] Katharina Welsh MD [address] [place] [address] Endoscopy Start: 11-08-2024 End: 11-08-2024 Patient encounter procedure 11/08/2024 11:40 AM EST Office Visit Christopher Diaz [address] [place] [address] [place] [phone] Destiny Godfrey MD 122 [facility] [place] [address] Judie Gill APRN [address] [place] [address] Christopher Diaz Start: 10-24-2024 End: 10-24-2024 Patient encounter procedure 10/24/2024 2:30 PM EST Office Visit Gastroenterology [address] [place] [phone] James Hendrix MD [address] [facility] [place], [place] [id number] cirrhosis with Ascites, saw local GI and they referred back to [facility] Comment on above: cirrhosis with Ascites, saw local GI and they referred back to [facility] Start: 10-18-2024 End: 10-18-2024 Patient encounter procedure 10/18/2024 2:15 PM EST [facility]ointment [facility] [address] [place] [address] [facility] Start: 10-10-2024 Subsequent hospital visit by physician 10/10/2024 Hospital Encounter [facility] [address] [place] [phone] Ginger Milton MD [address] [place] [address] [address] [place] [address] [facility] Comment on above: [facility] Start: 10-09-2024 Subsequent hospital visit by physician 10/09/2024 Hospital Encounter Endoscopy [address] [place] [address] Katharina Welsh MD 613 [facility] [address] [place] [address] Endoscopy Start: 10-04-2024 Subsequent hospital visit by physician 10/04/2024 Hospital Encounter [facility] [address] [place] [address] Max Rico MD [address] [place] [address] [address] [place] [address] [facility] Comment on above: [facility] Start: 10-03-2024 Subsequent hospital visit by physician 10/03/2024 Hospital Encounter [facility] [address] [place] [address] Max Rico MD [address] [place] [address] [facility] Comment on above: [facility] Start: 09-27-2024 End: 09-27-2024 Patient encounter procedure 09/27/2024 3:30 PM EST Office Visit [address] [place] [address] Destiny Godfrey MD 122 [facility] [place] [address] [facility] Start: 09-27-2024 Subsequent hospital visit by physician 09/27/2024 Hospital Encounter [facility] Inter[facility] Radiology [address] [place] [address] Ginger Milton MD [address] [place] [address] [address] [place] [address] [facility] Comment on above: [facility] Start: 09-20-2024 Subsequent hospital visit by physician 09/20/2024 Hospital Encounter [facility] [address] [place] [address] Minda Gómez MD [address] [place] [address] [address] [place] [address] [facility] Comment on above: [facility] Start: 09-20-2024 End: 09-20-2024 Patient encounter procedure 09/20/2024 1:45 PM EST Office Visit [facility] 613 [address], [address] [place] [address] Katharina Welsh MD 613 [facility] [address] [place] [address] Dian GrosseHIRO [address] [place] [address] [facility] Start: 08-30-2024 Subsequent hospital visit by physician 08/30/2024 Hospital Encounter [facility] [address] [place] [address] Minda Gómez MD [address] [place] [address] [facility] Comment on above: [facility] Start: 08-22-2024 Subsequent hospital visit by physician 08/22/2024 Hospital Encounter [facility] [address] [place] [phone] Max Rico MD [address] [place] [address] [facility] Comment on above: [facility] Start: 08-09-2024 Subsequent hospital visit by physician 08/09/2024 Hospital Encounter [facility] [address] [place] [phone] Minda Gómez MD [address] [place] [address] [facility] Discharge Disposition: Home or Self Care [facility] Comment on above: [facility] Start: 08-02-2024 Subsequent hospital visit by physician 08/02/2024 Hospital Encounter [facility] [address] [place] [address] Ginger Milton MD [address] [place] [address] [facility] Comment on above: [facility] Start: 07-27-2024 End: 07-27-2024 Patient encounter procedure 07/27/2024 10:30 AM EDT Office Visit [facility] [address] [place] [address] Jhonatan Banda APRN [address] [place] [address] [facility] Start: 07-25-2024 End: 07-25-2024 Patient encounter procedure 07/25/2024 3:00 PM EDT Office Visit [facility] [address] [place] [address] Katharina Welsh MD [address] [place] [address] [facility] Start: 07-18-2024 End: 07-18-2024 Patient encounter procedure 07/18/2024 11:00 AM EDT Office Visit [facility] [address] [place] [address] Katharina Welsh MD [address] [place] [address] [facility] Start: 06-24-2024 DIABETES SCREEN DIABETES SCREEN [facility] Start: 06-24-2024 Diabetes Screening Diabetes Screening [facility] Start: 05-29-2024 End: 05-29-2024 Patient encounter procedure 05/29/2024 10:00 AM EDT Office Visit [facility] [place] [address] [facility] [place] [address] Dacia Acosta MD [address] [place] [id number] Hospital Follow Up [facility] [place] Comment on above: Hospital Follow Up Start: 05-27-2024 Covid-19 Vaccine () Covid-19 Vaccine () [facility] Start: 05-27-2024 Covid-19 Vaccine ( season) Covid-19 Vaccine ( season) [facility] Start: 05-27-2024 Influenza vaccination [facility] Start: 05-16-2024 End: 05-16-2024 ambulatory 05/16/2024 9:30 AM EDT Visit (SP) Office Hematology/Oncology [address] [place] [address] Erik Salas DO [address] [place] [address] 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 AVAIL/ ELEVATED IGG ref Rashsaan Friend* Hematology/Oncology Comment on above: 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 AVAIL/ ELEVATED IGG ref Rashsaan Friend* Start: 05-15-2024 End: 05-15-2024 ambulatory 05/15/2024 3:00 PM EDT Visit (SP) Office Hematology/Oncology [address] [place] [address] Erik Salas DO [address] [place] [address] 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 [address] F/U family med, abdominal pain OB/Gynecology Comment on above: F/U family med, abdominal pain Start: 05-11-2024 End: 08-10-2024 Potassium [Moles/volume] in Serum or Plasma POTASSIUM Lab Routine Hypokalemia Expected: 05/11/2024, Expires: 08/10/2024 [facility] Work Phone: Comment on above: Expected: 05/11/2024, Expires: Start: 05-11-2024 End: 05-11-2024 Patient encounter procedure OB/Gynecology Comment on above: Follow up from [facility], abdominal pain Diarrhea, unspecifie d type [R19.7] Start: 05-10-2024 End: 08-09-2024 HIV 1+2 Ab [Presence] in Serum or Plasma by Immunoassay [facility] Comment on above: Expected: 05/10/2024, Expires: Start: 05-10-2024 End: 08-09-2024 SYPHILIS TOTAL W/REFLEX [facility] Comment on above: Expected: 05/10/2024, Expires: Start: 04-20-2024 End: 04-20-2024 Patient encounter procedure 04/20/2024 2:00 PM EDT Office Visit Family Medicine [place] [address] [place], [place] [phone] Mervin Ambrocio APRN.TRAVELING PASSENGER AGENT [address] [place] [address] [facility] 04/13 f/u kidney stone [facility] [place] Comment on above: [facility] 04/13 f/u kidney stone Start: 03-20-2024 End: 03-20-2024 Patient encounter procedure 03/20/2024 12:00 PM EDT Office Visit [facility] [place] [address] [place] [phone] Melisa Main MD [address] [place] [address] Follow-up disposition: Return in about 4 weeks (around 03/06/2024) for Follow up. [facility] [place] Comment on above: Follow-up disposition: Return in about 4 weeks (around 03/06/2024) for Follow up. Start: 03-14-2024 End: 03-14-2024 Patient encounter procedure 03/14/2024 4:00 PM EDT Appointment Mammogram [address] [place] [address] [facility]AN[facility] SCREENING Mammogram Comment on above: JEANETH SCREENING Start: 02-21-2024 HPV TESTING HPV TESTING [facility] Start: 02-21-2024 PAP TESTING PAP TESTING [facility] Start: 02-21-2024 Screening for malignant neoplasm of cervix [facility] Start: 02-07-2024 End: 02-07-2024 Patient encounter procedure 02/07/2024 9:00 AM EDT Office Visit [facility] [place] [address] [place] [phone] Melisa Main MD [address] [place] [address] Open wound of skin [T14.8XXA]/ PATIENT INFORMED THAT APPT MIGHT NEED TO BE RESCHEDULED PLEASE CALL PATIENT, NOTICE THAT SLOT WAS LOCK [facility] [place] Comment on above: Open wound of skin [T14.8XXA]/ PATIENT I NFORMED THAT APPT MIGHT NEED TO BE RESCHEDULED PLEASE CALL PATIENT, NOTICE THAT SLOT WAS LOCK Start: 01-25-2024 Mammography [facility] Start: 01-25-2024 Screening for malignant neoplasm of breast Mammogram Screening [facility] Start: 12-28-2023 Patient discharge [facility] Start: 12-09-2023 [facility] Start: 12-09-2023 Diagnostic radiography of abdomen [facility] Start: 12-09-2023 XR Chest and Abdomen Views [facility] Start: 12-07-2023 Patient discharge [facility] Start: 12-05-2023 Referral to christian science reader [facility] Start: 12-05-2023 Anaerobic microbial culture [facility] Start: 12-05-2023 Procedure [facility] Start: 12-05-2023 End: 12-05-2023 [facility] Start: 12-04-2023 Following clinical pathway protocol [facility] Start: 12-04-2023 Assessment of risk of venous thromboembolism [facility] Start: 12-04-2023 Inhalation therapy procedure [facility] Start: 12-04-2023 Insertion of catheter into peripheral vein [facility] Start: 12-04-2023 Introduction of urinary catheter [facility] Start: 12-04-2023 Measuring intake and output [facility] Start: 12-04-2023 Oxygen therapy [facility] Start: 12-04-2023 Providing care according to standard [facility] Start: 12-04-2023 Provision of activity privileges [facility] Start: 12-04-2023 Referral to service [facility] Start: 12-04-2023 Tobacco use cessation education [facility] Start: 12-04-2023 [facility] Start: 12-04-2023 Admission procedure [facility] Start: 12-04-2023 Verification routine [facility] Start: 12-04-2023 Hospital admission, emergency, from emergency room, medical nature [facility] Start: 12-04-2023 Consultation [facility] Start: 12-04-2023 Patient referral to dietitian [facility] Start: 11-26-2023 End: 02-25-2024 Urinalysis complete panel - Urine [facility] Work Phone: Comment on above: Expected: 11/26/2023, Expires: Start: 11-10-2023 End: 11-10-2023 [facility] Start: 11-07-2023 Anaerobic Culture Anaerobic Culture [facility] Start: 11-07-2023 Anaerobic microbial culture [facility] Start: 11-07-2023 Body Fluid Culture Body Fluid Culture [facility] Start: 11-07-2023 Microscopic observation [Identifier] in Unspecified specimen by Gram stain [facility] Start: 11-07-2023 End: 11-07-2023 [facility] Start: 11-05-2023 End: 11-05-2023 [facility] Start: 10-10-2023 [facility] Start: 10-09-2023 [facility] Start: 2023 Screening for malignant neoplasm of lung Lung Cancer Screening [facility] Start: 2023 Shingles Vaccine (Shingrix) (1 of 2) Shingles Vaccine (Shingrix) (1 of 2) [facility] Start: 2023 Shingrix Vaccine (1 of 2) Shingrix Vaccine (1 of 2) [facility] Start: 2023 Zoster Vaccines (1 of 2) Zoster Vaccines (1 of 2) [facility] Start: 2023 Patient discharge [facility] Start: 10-07-2023 Urine culture Urine Culture [facility] Start: 10-07-2023 End: 10-07-2023 [facility] Start: 10-06-2023 Following clinical pathway protocol [facility] Start: 10-06-2023 Assessment of risk of venous thromboembolism [facility] Start: 10-06-2023 Insertion of catheter into peripheral vein [facility] Start: 10-06-2023 Providing care according to standard [facility] Start: 10-06-2023 Provision of activity privileges [facility] Start: 10-06-2023 Referral to occupational therapist [facility] Start: 10-06-2023 Referral to service [facility] Start: 10-06-2023 [facility] Start: 10-06-2023 Admission procedure [facility] Start: 10-06-2023 Consultation [facility] Start: 09-24-2023 [facility] Start: 08-22-2023 [facility] Start: 08-22-2023 Referral to service [facility] Start: 08-22-2023 End: 08-22-2023 Suicide precautions [facility] Start: 08-15-2023 Iv infusion therapy prophylaxis/dx ea hour [facility] Start: 08-15-2023 Iv infusion therapy/prophylaxis /dx 1st to 1 hr [facility] Start: 08-15-2023 Level iv surg pathology gross&microscopic exam [facility] Start: 08-15-2023 Following clinical pathway protocol [facility] Start: 07-21-2023 Anaerobic Culture Anaerobic Culture [facility] Start: 07-21-2023 Body Fluid Culture Body Fluid Culture [facility] Start: 07-21-2023 Microscopic observation [Identifier] in Unspecified specimen by Gram stain Gram Stain [facility] Start: 07-21-2023 Patient discharge [facility] Start: 07-21-2023 CBC W Auto Differential panel - Blood [facility] Start: 07-21-2023 [facility] Start: 07-21-2023 Following clinical pathway protocol [facility] Start: 07-21-2023 Assessment of risk of venous thromboembolism [facility] Start: 07-21-2023 Catheterization of vein [facility] Start: 07-21-2023 Cell count and Differential panel - Body fluid [facility] Start: 07-21-2023 Centesis Paracentesis with US [facility] Start: 07-21-2023 Insertion of catheter into peripheral vein [facility] Start: 07-21-2023 Measuring intake and output [facility] Start: 07-21-2023 Microbial culture, body fluid [facility] Start: 07-21-2023 Providing care according to standard [facility] Start: 07-21-2023 Provision of activity privileges [facility] Start: 07-21-2023 Referral to gastroenterology service [facility] Start: 07-21-2023 [facility] Start: 07-21-2023 Consultation [facility] Start: 07-21-2023 Patient referral to dietitian [facility] Start: 07-20-2023 Verification routine [facility] Start: 07-20-2023 Admission procedure [facility] Start: 07-20-2023 Abdom paracentesis dx/ther w/imaging guidance [facility] Start: 05-27-2023 Covid-19 Vaccine ( season) Covid-19 Vaccine ( season) [facility] Start: 05-27-2023 Influenza vaccination [facility] Start: 04-25-2023 [facility] Start: 04-25-2023 Gonadotropin chorionic qualitative CHORIONIC GONADOTROPIN ASSAY [facility] Start: 12-02-2022 End: 02-01-2023 Bacteria identified in Wound by Culture WOUND CULTURE AND GRAM STAIN Microbiology Routine Skin infection Expected: 12/02/2022, Expires: 02/01/2023 [facility] Work Phone: Comment on above: Expected: 12/02/2022, Expires: Start: 09-15-2022 Patient discharge [facility] Work Phone: Start: 08-27-2022 Acute hepatitis 2000 panel - Serum [facility] Work Phone: Start: 08-27-2022 [id number] marker [Units/volume] in Serum or Plasma [facility] Work Phone: Start: 08-27-2022 Angiotensin converting enzyme [Enzymatic activity/volume] in Serum or Plasma [facility] Work Phone: Start: 08-27-2022 Ceruloplasmin [Mass/volume] in Serum or Plasma [facility] Work Phone: Start: 08-27-2022 Copper [Moles/volume] in Serum or Plasma [facility] Work Phone: Start: 08-27-2022 Haptoglobin [Mass/volume] in Serum or Plasma [facility] Work Phone: Start: 08-27-2022 Hepatitis B virus genotype [Identifier] in Serum or Plasma by PHYLLIS with probe detection [facility] Work Phone: Start: 08-27-2022 Mitochondria Ab [Presence] in Serum [facility] Work Phone: Start: 08-27-2022 Smooth muscle Ab [Presence] in Serum [facility] Work Phone: Start: 08-27-2022 [facility] Work Phone: Start: 05-27-2022 Influenza vaccination [facility] Start: 05-21-2022 Patient discharge [facility] Work Phone: Start: 05-21-2022 [facility] Work Phone: Start: 05-21-2022 Referral to occupational therapist [facility] Work Phone: Start: 05-21-2022 Referral to service [facility] Work Phone: Start: 05-20-2022 Application of intermittent pneumatic compression device [facility] Work Phone: Start: 05-19-2022 Following clinical pathway protocol [facility] Work Phone: Start: 05-19-2022 Aspiration precautions [facility] Work Phone: Start: 05-19-2022 Assessment of risk of venous thromboembolism [facility] Work Phone: Start: 05-19-2022 Bacteria identified in Sputum by Culture [facility] Work Phone: Start: 05-19-2022 Fall prevention [facility] Work Phone: Start: 05-19-2022 Incentive spirometry [facility] Work Phone: Start: 05-19-2022 Inhalation therapy procedure [facility] Work Phone: Start: 05-19-2022 Insertion of catheter into peripheral vein [facility] Work Phone: Start: 05-19-2022 Introduction of urinary catheter [facility] Work Phone: Start: 05-19-2022 Measuring intake and output [facility] Work Phone: Start: 05-19-2022 Providing care according to standard [facility] Work Phone: Start: 05-19-2022 Provision of activity privileges [facility] Work Phone: Start: 05-19-2022 Referral to service [facility] Work Phone: Start: 05-19-2022 Tobacco use cessation education [facility] Work Phone: Start: 05-19-2022 Wound care [facility] Work Phone: Start: 05-19-2022 End: 05-19-2022 [facility] Work Phone: Start: 05-19-2022 Legionella pneumophila Ag [Presence] in Urine [facility] Work Phone: Start: 05-19-2022 Streptococcus pneumoniae antigen assay [facility] Work Phone: Start: 05-19-2022 Viral nucleic acid assay [facility] Work Phone: Start: 05-19-2022 Admission procedure [facility] Work Phone: Start: 05-19-2022 Verification routine [facility] Work Phone: Start: 05-19-2022 [facility] Work Phone: Start: 05-09-2022 End: 07-09-2022 Bacteria identified in Wound by Culture [facility] Work Phone: Comment on above: Expected: 05/09/2022, Expires: 2 Start: 01-11-2022 End: 01-25-2022 Influenza virus A and B RNA and SARS-CoV-2 (COVID-19) N gene panel - Respiratory specimen by PHYLLIS with probe detection [facility] Work Phone: Comment on above: Expected: 01/11/2022, Expires: 2 Start: 08-05-2019 PNEUMOCOCCAL (2 - PCV) PNEUMOCOCCAL (2 - PCV) [facility] Start: 08-05-2019 [facility] Start: 08-05-2019 Pneumococcal Vaccine: 50+ (2 of 2 - PCV) Pneumococcal Vaccine: 50+ (2 of 2 - PCV) [facility] Start: 2018 COLOGUARD (FIT-DNA) COLOGUARD (FIT-DNA) [facility] Start: 2018 Colonoscopy COLONOSCOPY [facility] Start: 2018 COLORECTAL CANCER SCREENING COLORECTAL CANCER SCREENING [facility] Start: [address] COLONOGRAPHY [facility] Start: 2018 Diabetes Screening Diabetes Screening [facility] Start: 2018 FECAL OCCULT BLOOD FECAL OCCULT BLOOD [facility] Start: 2018 Lipid 1996 panel - Serum or Plasma Lipid Screening [facility] Start: 2018 Lipid panel Lipid Screening [facility] Start: 2018 LIPID SCREEN LIPID SCREEN [facility] Start: 2018 Screening for malignant neoplasm of colon [facility] Start: 2018 SIGMOIDOSCOPY SIGMOIDOSCOPY [facility] Start: 2013 Mammography MAMMOGRAM [facility] Start: 2013 Screening for malignant neoplasm of breast [facility] Start: 2003 Screening for malignant neoplasm of cervix [facility] Start: 1994 Screening for malignant neoplasm of cervix [facility] Start: 1992 DTAP/TDAP/TD VACCINE ( - Tdap) DTAP/TDAP/TD VACCINE ( - Tdap) [facility] Start: 1992 HEP A VACCINE (1 of 2 - Risk 2-dose series) HEP A VACCINE (1 of 2 - Risk 2-dose series) [facility] Start: 1992 Hepatitis A Vaccine (1 of 2 - Risk 2-dose series) Hepatitis A Vaccine (1 of 2 - Risk 2-dose series) [facility] Start: 1992 Hepatitis A Vaccines (1 of 2 - Risk 2-dose series) Hepatitis A Vaccines (1 of 2 - Risk 2-dose series) [facility] Start: 1992 HEPATITIS B (1 of 3 - Risk 3-dose series) HEPATITIS B (1 of 3 - Risk 3-dose series) [facility] Start: 1992 Hepatitis B Vaccine (1 of 3 - 19+ 3-dose series) Hepatitis B Vaccine (1 of 3 - 19+ 3-dose series) [facility] Start: 1992 Pneumococcal Vaccine: 50+ (1 of 2 - PCV) Pneumococcal Vaccine: 50+ (1 of 2 - PCV) [facility] Start: 1992 Urine microalbumin profile [facility] Start: 1991 Anxiety Screening Anxiety Screening [facility] Start: 1991 Depression Screening Depression Screening [facility] Start: 1991 Diabetes mellitus screening Diabetes Screening [facility] Start: 1991 Hepatitis C screening Hepatitis C Screening [facility] Start: 1991 HIV screening HIV Screening [facility] Start: 1985 Depresssion Monitoring Depresssion Monitoring [facility] Start: 1978 COVID-19 VACCINE (#1) COVID-19 VACCINE (#1) [facility] Start: 1978 COVID-19 VACCINE (1) COVID-19 VACCINE (1) [facility] Start: 1976 ANNUAL WELLNESS EXAM ANNUAL WELLNESS EXAM [facility] Start: 1974 HEPATITIS A (1 of 2 - Risk 2-dose series) HEPATITIS A (1 of 2 - Risk 2-dose series) [facility] Start: 1974 MMR Vaccines (1 of 1 - Standard series) MMR Vaccines (1 of 1 - Standard series) [facility] Start: 04-07-1974 COVID-19 VACCINE (#1) COVID-19 VACCINE (#1) [facility] Start: 1973 HEPATITIS B (1 of 3 - 3-dose series) HEPATITIS B (1 of 3 - 3-dose series) [facility] Start: 1973 Hepatitis B Vaccine (1 of 3 - 3-dose series) Hepatitis B Vaccine (1 of 3 - 3-dose series) [facility] Start: 1973 Hepatitis B Vaccines (1 of 3 - 3-dose series) Hepatitis B Vaccines (1 of 3 - 3-dose series) [facility] Start: 1973 HIV screening HIV Screening [facility] Start: 1973 Screening for malignant neoplasm of cervix PAP SMEAR EVERY 3 YR (Cervical Cancer Screen) [facility] Start: 1973 Screening for malignant neoplasm of colon [facility] Alanine aminotransfe rase [Enzymatic activity/volume] in Serum or Plasma [facility] Alanine aminotransfe rase [Enzymatic activity/volume] in Serum or Plasma [facility] Albumin [Mass/volume ] in Serum or Plasma [facility] Albumin [Mass/volume ] in Serum or Plasma [facility] Albumin, Body Fluid Albumin, Bod y Fluid Lab Routine 07/02/2024 1:03 PM EDT [facility] Albumin, Body Fluid Albumin, Bod y Fluid Lab Routine 07/09/2024 8:37 AM T [facility] Alkaline phosphatase [Enzymatic activity/volume] in Serum or Plasma [facility] Alkaline phosphatase [Enzymatic activity/volume] in Serum or Plasma [facility] [id number]. tumo r marker [Units/volume] in Serum or Plasma [facility] Work Phone: [id number]. tumo r marker [Units/volume] in Serum or Plasma [facility] [id number]. tumo r marker [Units/volume] in Serum or Plasma [facility] Amphetamine [Mass/volume] in Urine [facility] Angiotensin converti ng enzyme [Enzymatic activity/volume] in Serum or Plasma [facility] Work Phone: Anion gap measurement [facility] Anion gap measurement [facility] Antibody to lupus La protein measurement [facility] Work Phone: Antibody to lupus La protein measurement [facility] Antibody to SS-A measurement [facility] Work Phone: Antibody to SS-A measurement [facility] Aspartate aminotransferase [Enzymatic activity/volume] in Serum or Plasma [facility] Aspartate aminotransferase [Enzymatic activity/volume] in Serum or Plasma [facility] Bacteria identified in Body fluid by Culture [facility] Bacteria identified in Body fluid by Culture [facility] Bacteria identified in Unspecified specimen by Anaerobe culture [facility] Bacteria identified in Unspecified specimen by Anaerobe culture [facility] Bacteria identified in Urine by Culture Urine Culture [facility] Work Phone: Bacteria identified in Urine by Culture [facility] Bacteria identified in Urine by Culture URINE CULTURE Microbiology Routine Gross hematuria Acute cystitis with hematuria 01/31/2024 11:20 AM EDT [facility] Bacteria identified in Urine by Culture [facility] Bacteria identified in Urine by Culture URINE CULTURE Microbiology Routine Urinary frequency Ordered: 05/07/2024 [facility] Work Phone: Comment on above: Ordered: 05/07/2024 Bacteria identified in Wound by Culture WOUND CULTURE AND GRAM STAIN Microbiology Routine Cellulitis of chin 09/29/2022 6:34 PM EST [facility] Work Phone: Bacteria identified in Wound by Culture [facility] Work Phone: Benzodiazepine measurement, urine [facility] Bilirubin measuremen t, urine [facility] Bilirubin, total measurement [facility] Bilirubin, total measurement [facility] Bilirubin.direct [Mass/volume] in Serum or Plasma [facility] Blood ammonia measurement [facility] Blood Culture, Peripheral x 2 sets Blood Culture, Peripheral x 2 sets Microbiology STAT 12/10/2024 2:41 AM EDT [facility] Body Fluid Cell Count Body Fluid Cell Count Lab Routine 07/02/2024 1:03 PM EDT [facility] Body Fluid Cell Count Body Fluid Cell Count Lab Routine 07/09/2024 8:37 AM EDT [facility] End: 07-02-2024 Body Fluid Culture [facility] Work Phone: Comment on above: One Time for 1 Occurrences starting 03/2024 until 07/02/2024 Body Fluid Culture Body Fluid Cu lture Microbiology Routine 07/09/2024 8:37 AM EDT [facility] BUN/Creatinine ratio [facility] BUN/Creatinine ratio [facility] C reactive protein [Mass/volume] in Serum or Plasma [facility] Calcium [Mass/volume ] in Serum or Plasma [facility] Calcium [Mass/volume ] in Serum or Plasma [facility] Carbon dioxide, tota l [Moles/volume] in Serum or Plasma [facility] Carbon dioxide, tota l [Moles/volume] in Serum or Plasma [facility] CBC panel - Blood by Automated count CBC Lab Routine Daily until discontinued starting 12/10/2024, 4 completed [facility] Comment on above: Daily until discontinued starting 2024, 4 completed CBC W Auto Different ial panel - Blood [facility] CBC W Auto Different ial panel - Blood [facility] CBC W Auto Different ial panel - Blood [facility] Centromere protein B Ab [Units/volume] in Serum [facility] Work Phone: Ceruloplasmin [Mass/volume] in Serum or Plasma [facility] Work Phone: Chlamydia trachomatis+Neisseria gonorrhoeae DNA [Presence] in Unspecified specimen by PHYLLIS with probe detection GONORRHEA/CHLAMYDIA NAAT Lab Routine Possible exposure to STD Ordered: 05/10/2024 [facility] Comment on above: Ordered: 05/10/2024 Chloride [Moles/volu me] in Serum or Plasma [facility] Chloride [Moles/volu me] in Serum or Plasma [facility] Choriogonadotropin.b eta subunit ( test) [Presence] in Serum or Plasma [facility] Chromatin Ab [Units/volume] in Serum or Plasma [facility] Work Phone: Cocaine measurement, urine [facility] Comprehensive metabo lic 2000 panel - Serum or Plasma Comprehensive Metabolic Panel Lab Timed Daily until discontinued starting 12/10/2024, 4 completed [facility] Comment on above: Daily until discontinued starting 2024, 4 completed Comprehensive metabo lic 2000 panel - Serum or Plasma [facility] Copper [Moles/volume ] in Serum or Plasma [facility] Work Phone: Creatinine [Moles/volume] in Serum or Plasma [facility] Creatinine [Moles/volume] in Serum or Plasma [facility] End: 06-09-2025 CT Abdomen and Pelvis W contrast IV CT ABD/PEL W IVCON Radiology STAT Diarrhea, unspecified type 1 Occurrences starting 05/10/2024 until 06/09/2025 [facility] Work Phone: Comment on above: 1 Occurrences starting 05/10/2024 until 06/09/2025 CT Abdomen WO and W contrast IV [facility] Cytology report of B no fluid Cyto stain [facility] End: 07-02-2024 Cytology, Non Sales Account Specialist [facility] Comment on above: One Time for 1 Occurrences starting 03/2024 until 07/02/2024 End: 07-09-2024 Cytology, Non Sales Account Specialist [facility] Work Phone: Comment on above: One Time for 1 Occurrences starting 06/26 until 07/09/2024 Cytoplasmic ANCA Screen [place] DNA double strand Ab [Units/volume] in Serum [facility] Work Phone: DNA double strand Ab [Units/volume] in Serum [facility] EGD /C BAND LIGATION VARICES [facility] Ferritin [Mass/volum e] in Serum or Plasma [facility] Gamma glutamyl transferase measurement [facility] Gamma glutamyl transferase measurement [facility] Glucose [Mass/volume ] in Serum or Plasma [facility] Glucose [Mass/volume ] in Serum or Plasma [facility] Haptoglobin [Mass/volume] in Serum or Plasma [facility] Work Phone: Hematocrit [Volume Fraction] of Blood [facility] Hematocrit [Volume Fraction] of Blood [facility] Hemoglobin [Mass/vol ume] in Blood [facility] Hemoglobin [Mass/vol ume] in Blood [facility] Hemoglobin [Presence ] in Urine [facility] Hemoglobin A1c/Hemoglobin.total in Blood [facility] Hepatitis A virus Ig M Ab [Presence] in Serum [facility] Work Phone: Hepatitis B core antibody measurement, IgM type [facility] Work Phone: Hepatitis B surface antigen measurement [facility] Work Phone: Hepatitis B virus surface Ab [Presence] in Serum [facility] Hepatitis C antibody measurement [facility] Work Phone: Hepatitis C virus genotype [Identifier] in Blood by PHYLLIS with probe detection [facility] Work Phone: Hepatitis C virus RN A assay [facility] Hepatitis C virus RN A assay [facility] IgG [Mass/volume] in Serum or Plasma [facility] IgG subclass panel [Mass/volume] - Serum [facility] Immunoglobulin measurement [facility] Iron and Iron bindin g capacity panel - Serum or Plasma [facility] Thania-1 extractable nuc lear Ab [Units/volume] in Serum [facility] Work Phone: Leukocytes [#/volume ] in Blood [facility] Leukocytes [#/volume ] in Blood [facility] Lipid 1996 panel - S marcello or Plasma [facility] Magnesium [Mass/volu me] in Serum or Plasma [facility] Work Phone: Mean corpuscular hemoglobin concentration determination [facility] Mean corpuscular hemoglobin concentration determination [facility] Mean corpuscular hemoglobin determination [facility] Mean corpuscular hemoglobin determination [facility] Measurement of 3,4-methylenedioxymetham phetamine in urine [facility] Measurement of keton es in urine using dipstick [facility] Measurement of renal function [facility] Measurement of renal function [facility] Methadone measuremen t, urine [facility] End: 03-30-2025 MG Breast Screening [facility] SCREENING Radiology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 Bilirubin 2.12 H AST 239 H ALT 106 H Alkaline Phosphatase 130 H Total Protein 6.8 Albumin 3.2 L Globulin 3.5 Albumin/Globulin Ratio 0.9 Lipase 36 Serum , Qual NEGATIVE Urine Color Yellow Urine Clarity Sl. Cloudy Urine pH 7.0 Ur Specific [place] 1.010 Urine Protein 15 H Urine Glucose (UA) Normal Urine Ketones Negative Urine Occult Blood 50 H Urine Nitrite Negative Urine Bilirubin 1 H Urine Urobilinogen 4 H Ur Leukocyte Esterase Negative Urine RBC 5-10 SEEN Urine WBC 0-5 SEEN Ur Squamous Epith Cells 0-5 SEEN Urine Bacteria RARE Urine Mucus 0 SEEN Discharge Plan Triage Chief Complaint: Abd Pain ED Provider: Timoteo Gardiner Dx/Rx/DC Orders Clinical Impression: Cirrhosis of liver, Abdominal ascites Instructions: ED Ascites Prescriptions: No Action trazodone 50 mg tablet 100 mg PO QHS PRN (Reason: sleep) pantoprazole 40 mg tablet,delayed release (DR/EC) 40 mg PO DAILY Patient Comments: am spironolactone 100 mg tablet 100 mg PO DAILY Patient Comments: am gabapentin 300 mg capsule 300 mg PO TID Patient Comments: am buspirone 7.5 mg tablet 7.5 mg PO TID aripiprazole 5 mg tablet 5 mg PO DAILY Patient Comments: am ramelteon 8 mg tablet 8 mg PO QHS Patient Comments: take 30min prior to bedtime cholecalciferol (vitamin D3) 50 mcg (2,000 unit) capsule 50 mcg PO DAILY Patient Comments: am desvenlafaxine succinate 25 mg tablet extended release 24 hr 25 mg PO DAILY Patient Comments: am Rx Instructions: take with 50mg tablet to =75mg topiramate 50 mg tablet 50 mg PO DAILY Patient Comments: am desvenlafaxine succinate 50 mg tablet extended release 24 hr 50 mg PO DAILY Patient Comments: am Rx Instructions: take with 25mg tab to = 75mg lidocaine [Lidoderm] 5 % adhesive patch,medicated 1 patch topical DAILY PRN (Reason: pain) 3 Days Qty: 3 0RF Rx Instructions: leave on most painful area for up to 12 hrs lactulose 10 gram/15 mL solution 10 g PO TID PRN (Reason: stomach upset) Qty: 3000 0RF furosemide [Lasix] 40 mg tablet 40 mg PO DAILY Qty: 30 0RF Rx Instructions: start on 04/14/24 Xifaxan 550 mg tablet 550 mg PO BID 30 Days Qty: 60 6RF ursodiol 500 mg tablet 500 mg PO TID 30 Days Qty: 90 5RF Patient Comments: am Other Ambulatory Orders: Paracentesis with US (Routine) Facility: [facility] - Location: [facility] Ordered By: Dr. Timoteo Gardiner Primary Care Provider: Eyad Saeed Referrals: Eyad Saeed, CENTRIFUGAL CASTING MACHINE OPERATOR-C [Primary Care Provider, Family Practice] - As Needed Activity Restrictions/Additional Instructions: Your labs are consistent with your prior labs. I spoke to ultrasound. They could not do it today but they think they can get you in the schedule possibly as early as tomorrow to have your abdominal paracentesis and get your ascites drained. They will call you in the morning. To get this set up. Print Language: Czech Disposition Disposition: Home, Self Care What to do if you have Problems For any increased pain, shortness of breath, bleeding, nausea or vomiting, chestpain, or any unexpected problems, contact your Primary Care Provider. Call [facility] ([phone]) or report to the closest Emergency Room. Call 911 if necessary. 07/16/25 0046 <Electronically signed by Timoteo Gardiner MD> Cosigner Signature (if applicable): CC: Eyad ALSTON CENTRIFUGAL CASTING MACHINE OPERATOR-C Darlin ~ Signed [facility] Work Phone: [phone]) 554-738010-16-[address] [facility] Medical Records Department [address] [place] [address] Emergency Department Summary 07/11/25 MR#: [id number] Acct: [id number] Name: CAROLINA HIGHTOWER Rep #:[id number] : 1975 49 From: Brock girard DO PCP: Eyad Saeed CENTRIFUGAL CASTING MACHINE OPERATOR-C Status:DEP ER Location: ED HPI History of Present Illness Chief Complaint: Back Narrative Narrative: Chief complaint and HPI: 49-year-old female with past medical history of polysubstance abuse, hepatitis C with cirrhosis, history of lumbar herniated disc presents for evaluation of lumbar back pain.Patient states for the past 30 days she has been in [facility]. States that their beds are not comfortable or padded. States she was discharged from [facility] yesterday. She denies any trauma tothe back or fight. She states that the pain did cause her to fall yesterday butstates that she fell forward and did not hit her back. Did not hit her head. No LOC. Pain periodically radiates into her bilateral buttocks. She states that she has difficulty ambulating due to the pain. Daughter in the room states that the patient has history of a lumbar herniated disc that intermittently flares. She has chronic nervepain in which she takes gabapentin. Patient denies any fever, chills, shortness of breath, chest pain, dysuria. Denies numbness, urinary retention, stool or urinary incontinence, saddle anesthesia, recent invasive manipulation of the spine, recent intravenous drug use. Patientstates that she feels that she did not get good care in [facility]. Review of systems: See HPI Medications: As listed on the chart Allergies: As listed on the chart PFSH: Per chart Vital signs: As listed on the chart. Reviewed. Physical exam: Gen: A&O x3, NAD Head: Normocephalic, atraumatic Eyes: No sclera icterus, conjunctiva clear ENT: Moist mucous membranes Neck: Trachea midline, full range of motion, nontender CV: RRR, no murmurs, no peripheral edema Resp: Lungs CTA BL, no w/r/c GI: Abd soft, nondistended, nontender : No CVA tenderness Musc: Ambulated to the bathroom without difficulty, moves all extremities but endorses back pain with movement of the bilateral lower extremities-states it pulls on her lower back, no deformity, strength +5/5 in all extremities, no midline spinal tenderness, no bony step-offs, mild tenderness to palpation of the bilateral paraspinal musculature of the lower lumbar spine, no signs of trauma or infection, no saddle paresthesias, sensation intact Skin: Warm, dry Neuro: Alert, oriented, grossly intact Psych: Cooperative, appropriate mood and affect [facility] Medical History (Updated 07/11/25 @ 12:[address] Brock Ruiz, ) Thrombocytopenia Dietary restriction History of pain when walking Decompensated cirrhosis Redness of skin Blackout Abdominal ascites Urolithiasis Hydronephrosis with renal calculous obstruction Hydroureteronephrosis Bipolar disorder Anxiety Depression Ascites of liver Complete edentulism, class III Alcohol abuse Chronic pain GERD (gastroesophageal reflux disease) Restless legs Iron deficiency anemia Hyperbilirubinemia Substance abuse Marijuana use MRSA infection Low iron Anemia Hepatitis Migraine headache Seizures History of diverticulitis COPD (chronic obstructive pulmonary disease) Smoker Obesity Polysubstance abuse Cirrhosis of liver Anxiety and depression Hepatitis C, chronic Home Medications ?Medication ?Instructions ?Recorded ?Last Taken ?Type trazodone 50 mg tablet 100 mg PO QHS PRN sleep 12/2707/10/25 History furosemide 40 mg tablet (Lasix) 40 mg PO DAILY DIURETI C #30 tabs 02/05/25 07/10/25 Rx lactulose 10 gram/15 mL oral 10 g (15 mL) PO TID PRN s tomach 02/05/25 07/10/25 Rx solution upset #3,000 mL pantoprazole 40 mg tablet,delayed 40 mg PO DAILY gerd 03/13/25 07/10/25 History release rifaximin 550 mg tablet (Xifaxan) 550 mg PO BID diarrh ea 30 days #60 05/20/25 07/10/25 Rx tabs ursodiol 500 mg tablet 500 mg PO TID 1 month #90 ta bs 05/21/25 07/10/25 Rx aripiprazole 5 mg tablet 5 mg PO DAILY 07/11/2507/10 History buspirone 7.5 mg tablet 7.5 mg PO TID anxiety 07/10/25 History cholecalciferol (vitamin D3) 50 50 mcg PO DAILY supple ment 07/11/25 07/10/25 History mcg (2,000 unit) capsule desvenlafaxine succinate 25 mg 25 mg PO DAILY depressi on 07/11/25 07/10/25 History tablet,extended release 24 hr desvenlafaxine succinate 50 mg 50 mg PO DAILY depressi on 07/11/25 07/10/25 History tablet,extended release 24 hr gabapentin 300 mg capsule 300 mg PO TID nerve pain 07/10/25 History lidocaine 5 % topical patch 1 patch topical DAILY PRN pain 3 07/11/25 Unknown Rx (Lidoderm) days #3 ea ramelteon 8 mg tablet 8 mg PO QHS sleep 07/11/25 1 History spironolactone 100 mg tablet 100 mg PO DAILY heart 07/10/25 History topiramate 50 mg tablet 50 mg PO DAILY seizures 06/2607/10/25 History Allergy/AdvReac Type Severity Reaction Status Date / Time bupropion HCl (From Allergy SEIZURES Verified 07/11/25 08:38 Wellbutrin) codeine Allergy Rash Verified 07/11/25 08:38 Family History Mother Diabetes Father Cancer HX [...] Yes EXAM Physical Exam Const Vital Signs: 07/11/25 08:38 07/11/25 12:23 Temperature 97.4 F L 97.9 F Temperature Source Temporal Pulse Rate 84 81 Respiratory Rate 16 16 Blood Pressure 121/79 H 124/77 H Blood Pressure Mean 93 92 Pulse Ox 97 99 MDM MDM MDM Narrative Medical decision making narrative: 49-year-old female with past medical history of polysubstance abuse, hepatitis Cwith cirrhosis, history of lumbar herniated disc presents for evaluation of lumbar back pain. Patient states for the past 30 days she has been in [facility]. States that their beds are not comfortable or padded. States she was [facility] yesterday. She denies any trauma to the back. Daughter in the room states thatthe patient has history of a lumbar herniated disc that intermittently flares. She has chronic nerve pain in which she takes gabapentin. Patient denies any fever, chills, shortness of breath, chest pain, dysuria, numbness, urinary retention, stool or urinary incontinence, recent invasive manipulation of the spine, recent intravenous drug use. Differential diagnosis includes but is not limited to myofascial spasm, back strain, chronic herniated disc. There is nothing to suggest any infectious etiology. There is nothing to suggest any acute cauda equina syndrome. At this point in time I do not feel any emergent MRI or CT is warranted. Patient's symptoms will be treated with Toradol, muscle relaxer, lidocaine patch. Will obtain x-ray of thelumbar spine to rule out any occult fracture although low suspicion. Patient states she did not feel that she got good care at [facility] and requesting basiclabsto be performed. This was ordered with a urine. CBC without leukocytosis. Patient has baseline a nemia of 10.7. She has thrombocytopenia of 39. On her chart review she has a history of thrombocytopenia in the past. No current bleeding. CMP shows baseline hyperbilirubinemia and transaminitis fromher hepatitis C cirrhosis. UA is negative for UTI. Urine drug screen positive for oxycodone. X-ray of the lumbar spine shows straightening of the lumbar curvaturewhich can indicate spasm. There is loss of disc height which is most severe at L5-S1. On reevaluation, patient's pain has improved. She is ambulated multipletimes in the emergency department without difficulty. She states her pain is controlled and is ready to discharge home. However given her significant thrombocytopenia, I did contact Dr. Foster who she follows with her cirrhosis. No need for emergent intervention at this time per his recommendations. He was aware that the patient did receive Toradol. Plan is to provide an order to haveher labs repeated in 3 days. Follow-up in his office. She confirmed understandthe plan. Patient stable to discharge home. Was prescribed lidocaine patches. Patient referred to primary care physician and orthopedic physician. Impression: 1. Lumbar back spasm 2. Chronic anemia 3. Chronic thrombocytopenia 4. Chronic transaminitis secondary to hepatitis C cirrhosis Lab Data Labs: Laboratory Results - last 24 hr 07/11/25 07/11/25 09:06 09:38 WBC 6.2 RBC 3.65 L Hgb 10.7 L Hct 32.5 L MCV 89.0 MCH 29.3 MCHC 32.9 RDW Std Deviation 55.0 H RDW Coeff of Katalina 16.9 H Plt Count 39 L* MPV 12.3 H Immature Gran % (Auto) 0.300 Neut % (Auto) 70.2 H Lymph % (Auto) 17.3 L Dickenson % (Auto) 9.5 Eos % (Auto) 2.4 Baso % (Auto) 0.3 Absolute Neuts (auto) 4.3 Absolute Lymphs (auto) 1.07 Nucleated RBC % 0 Platelet Estimate MKD DEC Sodium 136 Potassium 3.7 Chloride 107 Carbon Dioxide 19.2 L Anion Gap 10 BUN 15 Creatinine 1.01 Estim Creat Clear Calc 67.43 Est GFR (MDRD) Non-Af 67 BUN/Creatinine Ratio 14.4 Glucose 132 H Calcium 8.8 Total Bilirubin 1.77 H AST 101 H ALT 52 H Alkaline Phosphatase 105 H Total Protein 6.7 Albumin 3.1 L Globulin 3.6 Albumin/Globulin Ratio 0.9 Urine Color Yellow Urine Clarity Sl. Cloudy Urine pH 6.0 Ur Specific [place] 1.025 Urine Protein 30 H Urine Glucose (UA) Normal Urine Ketones Negative Urine Occult Blood 150 H Urine Nitrite Negative Urine Bilirubin Negative Urine Urobilinogen 4 H Ur Leukocyte Esterase Negative Urine RBC 0-5 SEEN Urine WBC 0 SEEN Ur Squamous Epith Cells 5-10 SEEN Urine Bacteria 1+ Urine Mucus 1+ Urine Opiates Screen NEGATIVE U Buprenorphine Qual NEGATIVE Ur Oxycodone Screen PRESUMPTIVE POSITIVE Urine Methadone Screen NEGATIVE Urine Fentanyl Screen NEGATIVE Ur Barbiturates Screen NEGATIVE Ur Phencyclidine Scrn NEGATIVE Ur Amphetamines Screen NEGATIVE U Benzodiazepines Scrn NEGATIVE Urine Cocaine Screen NEGATIVE U Cannabinoids Screen NEGATIVE Radiography Diagnostic Testing: Clinical Impression(s) from Imaging Studies Lumbar Spine X-Ray 07/11/25 09:40 IMPRESSION: There is straightening of the lumbar curvature which can indicate spasm. There is loss of disc height which is most severe at L5-S1. [facility] Triage Chief Complaint: Back ED Provider: Brock Ruiz Dx/Rx/DC Orders Clinical Impression: Back pain Instructions: ED Back Spasm, No Trauma Prescriptions: New lidocaine [Lidoderm] 5 % adhesive patch,medicated 1 patch topical DAILY PRN (Reason: pain) 3 Days Qty: 3 0RF Rx Instructions: leave on most painful area for up to 12 hrs No Action trazodone 50 mg tablet 100 mg PO QHS PRN (Reason: sleep) pantoprazole 40 mg tablet,delayed release (DR/EC) 40 mg PO DAILY Patient Comments: am spironolactone 100 mg tablet 100 mg PO DAILY Patient Comments: am gabapentin 300 mg capsule 300 mg PO TID Patient Comments: am buspirone 7.5 mg tablet 7.5 mg PO TID aripiprazole 5 mg tablet 5 mg PO DAILY Patient Comments: am ramelteon 8 mg tablet 8 mg PO QHS Patient Comments: take 30min prior to bedtime cholecalciferol (vitamin D3) 50 mcg (2,000 unit) capsule 50 mcg PO DAILY Patient Comments: am desvenlafaxine succinate 25 mg tablet extended release 24 hr 25 mg PO DAILY Patient Comments: am Rx Instructions: take with 50mg tablet to =75mg topiramate 50 mg tablet 50 mg PO DAILY Patient Comments: am desvenlafaxine succinate 50 mg tablet extended release 24 hr 50 mg PO DAILY Patient Comments: am Rx Instructions: take with 25mg tab to = 75mg lactulose 10 gram/15 mL solution 10 g PO TID PRN (Reason: stomach upset) Qty: 3000 0RF furosemide [Lasix] 40 mg tablet 40 mg PO DAILY Qty: 30 0RF Rx Instructions: start on 04/14/24 Xifaxan 550 mg tablet 550 mg PO BID 30 Days Qty: 60 6RF ursodiol 500 mg tablet 500 mg PO TID 30 Days Qty: 90 5RF Patient Comments: am Other Ambulatory Orders: CBC W/Diff, Automated (Routine) Timeframe: 3 Days Facility: [facility] - Location: Laboratory 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 Return back to ED if symptoms change or worsen. Return back to the ED if you have any spontaneous bleeding. Follow-up with primary care physician, Dr. Foster orthopedic physician. Continue your home medications. Recommend rest and heating pad as needed. Print Language: Czech Disposition Disposition: Home, Self Care Discharge Date/Time: 07/11/25 12:24 What to do if you have Problems For any increased pain, shortness of breath, bleeding, nausea or vomiting, chestpain, or any unexpected problems, contact your Primary Care Provider. Call [facility] ([phone]) or report tothe closest Emergency Room. Call 911 if necessary. 07/11/25 1517 Cosigner Signature (if applicable): CC: Eyad Saeed ~ Signed [facility]10-16-2025 Radiology Diagnostic study note [facility] Imaging Services [address] [place] [address] Lumbar Spine 2 or 3 Views MR#: [id number] Acct: [id number] Name: CAROLINA HIGHTOWER Rep #: [id number] : 1975 F 49 From: Wale Dash MD PCP: Eyad Saeed Status: REG ER Study:Lumbar Spine 2 or 3 Views Date of Exam: 07/11/25 Exam# [id number] Ordering Dr: Brock Pimentel DO PROCEDURE: LUMBAR SPINE 2 OR 3 VIEWS 07/11/2025 REASON FOR EXAM: PAIN TECHNIQUE: Procedure Code: RADSPLL Modality: DX Procedure: Lumbar spine two views COMPARISON: None FINDINGS: There is straightening of the lumbar curvature which can indicate spasm. There is loss of disc height which is most severe at L5-S1. The facets are aligned, with moderate sclerosis. Vertebral body height is maintained. There is no spondylolisthesis. Mineralization is normal. Clips are noted in the right and left pelvis. Vascular calcifications arevisible. RAD/Lumbar Spine 2 or 3 Views IMPRESSION: There is straightening of the lumbar curvature which can indicate spasm. There is loss of disc height which is most severe at L5-S1. Reading Location: [facility] CC: Dr. Brock Ruiz DO; Eyad Saeed ~ Bilingual Patient Support Caseworker: Signed [facility]09-14-2025 Hospital Discharge instructions Patient Education 06/09/2025 20:33:34 Chronic Pain Chronic Pain Pain serves an important role. It lets you know something is wrong that needs your attention. When the body heals, pain normally goes away. When pain lasts longer than 6 months, it is called chronic pain. This is pain that is present even after the body has healed. Chronic pain can cause mood problems and get in the way of your relationships and your daily life. A number of conditions can cause chronic pain. Some of the more common include: Previous surgery An old injury Infection Diseases such as diabetes Nerve damage Back injury Arthritis Migraine or other headaches Fibromyalgia Cancer Depression and stress can make chronic pain symptoms worse. In some cases, a cause for the pain can't be found. Treatment Treatment can greatly reduce pain. In many cases, pain can become less severe, occur less often, and interfere less with your daily life. Chronic pain is often treated with a combination of medicines, therapies, and lifestyle changes. You will work closely with your healthcare provider to find a treatment plan that works best for you. Ask your healthcare provider for a referral to a pain management specialty center. These can provide the most recent and proven pain management strategies, along with emotional support and comprehensive services. Several different types of medicines may be prescribed for chronic pain. Work with your healthcare provider to develop a medicine plan that helps manage your pain. Physical therapy can help reduce certain types of chronic pain. Occupational therapy teaches you how to do routine tasks of daily living in ways that lessen your discomfort. Counseling can help you cope better with stress and pain. Other therapies such as meditation, yoga, biofeedback, massage, and acupuncture can also help manage chronic pain. Changing certain habits can help reduce chronic pain. They include: oEating healthy oDeveloping an exercise routine oGetting enough sleep oStopping smoking and limiting alcohol use oLosing excess weight Follow-up care Follow up with your healthcare provider, or as advised. Let your healthcare provider know if your current treatment plan is working or if changes are needed. Resources For more information, contact: [employer], ahma.memberclicks.net or 563-874-2541 [place] [employer], theacpa.org or [phone] [place] [address], [place] [address]. All rights reserved. This information is not intended as a substitute for professional medical care. Always follow yourhealthcare professional's instructions. Follow Up Care 06/09/2025 20:05:26 With:Follow up with primary care provider Address:Unknown When:2-4 days [facility] 09-14-2025 Emergency department Discharge summary Discharge Instructions Thank you for allowing [facility] to assist you with your healthcare needs. The following is importantdischarge information regarding your hospital visit. Diagnosis from Today's Visit Chronic pain What to Do Next Instructions from Your Care Team No qualifying data available. Post Acute Orders No qualifying data available. You Need to Schedule the Following Appointments Follow Up with Follow up with primary care provider When:Within 2-4 days Allergies Wellbutrin aspirin Hives codeine Hives Medications Please ask your primary doctor or pharmacist before taking any other medication not listed, including over the counter drugs, herbal medications, vitamins and or supplements as they may interact withyour home medications. What How Much When Why Instructions Last Dose New oxyCODONE (oxyCODONE 5 mg oral tablet ( IMMEDIATErelease )) 1 tab(s) by mouth Every 6 hours as needed for for pain Chronic pain Duration: 2 Days TO GO Printed Prescription Unchanged ARIPiprazole (ARIPiprazole 10 mg [...] medication providers or retail pharmacies. Education Materials Chronic Pain Pain serves an important role. It lets you know something is wrong that needs your attention. When the body heals, pain normally goes away. When pain lasts longer than 6 months, it is called chronic pain. This is pain that is present even after the body has healed. Chronic pain can cause mood problems and get in the way of your relationships and your daily life. A number of conditions can cause chronic pain. Some of the more common include: Previous surgery An old injury Infection Diseases such as diabetes Nerve damage Back injury Arthritis Migraine or other headaches Fibromyalgia Cancer Depression and stress can make chronic pain symptoms worse. In some cases, a cause for the pain can't be found. Treatment Treatment can greatly reduce pain. In many cases, pain can become less severe, occur less often, and interfere less with your daily life. Chronic pain is often treated with a combination of medicines, therapies, and lifestyle changes. You will work closely with your healthcare provider to find a treatment plan that works best for you. Ask your healthcare provider for a referral to a pain management specialty center. These can provide the most recent and proven pain management strategies, along with emotional support and comprehensive services. Several different types of medicines may be prescribed for chronic pain. Work with your healthcare provider to develop a medicine plan that helps manage your pain. Physical therapy can help reduce certain types of chronic pain. Occupational therapy teaches you how to do routine tasks of daily living in ways that lessen your discomfort. Counseling can help you cope better with stress and pain. Other therapies such as meditation, yoga, biofeedback, massage, and acupuncture can also help manage chronic pain. Changing certain habits can help reduce chronic pain. They include: oEating healthy oDeveloping an exercise routine oGetting enough sleep oStopping smoking and limiting alcohol use oLosing excess weight Follow-up care Follow up with your healthcare provider, or as advised. Let your healthcare provider know if your current treatment plan is working or if changes are needed. Resources For more information, contact: [employer], ahmo.memberclicks.net or 904-404-7497 [employer], theacpa.org or [phone]oster[address] [place] [address]. All rights reserved. This information is not intended as a substitute for professional medical care. Always follow yourhealthcare professional's instructions. Additional Information VACCINATE! IT SAVES LIVES! Members of the community who have not yet received the COVID-19 vaccine and would like to receive it can visit one of [facility] vaccine clinics. There are many vaccine clinic locations within the [facility]. For locations and available times, please visit www.gettheshot.coronavirus.[place].gov/. It is important to note that some COVID mobile vaccine clinics are held outdoors and may be canceled in rainy or stormy conditions. To learn more about pediatric vaccinations (ages 5-11), we invite you to visit the [facility] webpage. [email or web address]://www.[email or web address]/pages/[email or web address]-Wqrfo-Bogshmxtiqw-Hfexwykjym-Cwjoo-Phs stions.htmlTo learn more about the COVID-19 vaccine, we invite you to visit the CDC website for a list of frequently asked questions. https://www.cdc.gov/coronavirus/2019-ncov/vaccines/faq.html [facility] Patient Portal Access Instructions: Stay connected with your healthcare team and access your personal medical information anytime with the [facility] Patient Portal. If you would like a full copy of your medical records please contact the [facility] Medical Records Department Tuesday through Tuesday between 8a.m. and 4:30p.m. Please follow the directions below to access the portal: 1.Access the email account you provided upon registration to the hospital.2.Look for an invitation email from [facility].3.Open the email and access the invitation link: Accept Invitation to [facility]4.Fill in the required dhillon to create your account. To access your account, visit [email or web address] or scan the QR code above. Click the bluebutton labeled "Access Patient Portal" and then log in with the username and password that you created in the steps above. You can then view a summary of results, a summary of your visits, and the ability to download your summaries to your computer or send the information securely to a physician. Re member that your healthcare information is confidential, so carefully consider who you will allow to register on the [facility] Patient Portal for access to your information. You can also access the [facility] Patient Portal on the Factor 14. Simply click on "Health Records" under "Health Data" and then click on the I[employer] logo. HOW TO SAFELY DISPOSE OF PRESCRIPTION [...] Call your local pharmacy or go to [email or web address] to find one close to you.3.Make use of household items: Use cat litter or old coffee grounds to dispose medications if other options arenot available. Mix your drugs with these household products, seal them in an airtight container andthrow it into the garbage. Call [facility]: [phone] to be sure your drugs can be [...] a CHART COPY Signatures Patient Education Materials Chronic Pain Medication Leaflets My discharge plan and instructions have been reviewed and explained to me and IKATJA LAURA T understand my current condition and have read and understand these discharge instructions. I have received a written copy of the plan/instructions. If I have questions, I am aware that I should contact my doctor. 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 Signature: Date/Time: Relationship to Patient: Witness Name/Signature: Date/Time: [facility]08-20-2025 Evaluation note* Diagnosis Onset Date Resolution Status Admit Date Cirrhosis of liver chronic May 15, 2025 2:45pm Hepatitis C, chronic chronic 2024 2:45pm [facility] Work Phone: 1(957) 581-796008-20-2025 Evaluation note* Diagnosis Onset Date Resolution Status Admit Date Cirrhosis of liver chronic May 15, 2025 2:45pm Hepatitis C, chronic chronic 2024 2:45pm Degenerative disc disease at L5-S1 level acute July 25 12:47pm Lumbar radiculopathy acute 2024 12:47pm Thrombocytopenia acute July 25, 2025 2:42pm Cirrhosis of liver chronic 2024 2:42pm Hepatitis C, chronic chronic 2024 2:42pm [facility] Work Phone: 1(474) 283-482608-13-2025 Radiology Diagnostic study [facility]08-13-2025 Radiology Diagnostic study [facility]07-03-2025 NoteHNO ID: [id number] Author: MARIAH BENAVIDEZ, ? Service: ? Author Type: Physician Type: Progress Notes Filed: 03/28/2025 13:01 Note Text: Subjective Carolina Hightower is a 49-year-old female with a history of liver failure, cirrhosis, and hepatitis C, presenting for evaluation of toenail issues and foot cramps. Onychomycosis: - Toenail issues for years, with significant thickening and discoloration. - Left great toenail partially removed by Carolina; uncertain if it will regrow. - Pain occurs when toenails get caught in blankets. - Unable to use nail clippers due to thickness. - Denies previous treatment due to liver issues. Foot Cramps: - Severe cramps in the arches of both feet. - No relief from various attempts to alleviate symptoms. - Denies burning, tingling, or numbness in the feet. Hepatitis C: - Diagnosed with hepatitis C; unable to receive treatment due to liver condition. - Uncertain of how hepatitis C was contracted. - Denies HIV. Liver Failure and Cirrhosis: - Diagnosed with liver failure and cirrhosis, attributed to alcohol use. Tobacco Use: - Smokes approximately half a pack per day. - Smoking since age 11, with periods of cessation during pregnancies. Musculoskeletal: (+) foot arch cramps, (-) foot arch pain Skin: (+) toenail pain, (+) thickened toenails Neurological: (-) burning in ankles/feet, (-) tingling in ankles/feet, (-) numbness in ankles/feet PAST MEDICAL HISTORY Diagnosis Date Depression GERD (gastroesophageal reflux disease) Hepatitis C 2015 Liver failure (HCC) 2015 Current Outpatient Medications Medication Sig Dispense Refill albuterol HFA (PROVENTIL HFA, VENTOLIN HFA) 90 mcg/actuation inhaler busPIRone (BUSPAR) 5 mg tablet Cholecalciferol, Vitamin D3, 50 mcg (2,000 unit) cap fluticasone (FLONASE) 50 mcg/actuation nasal spray furosemide (LASIX) 40 mg tablet gabapentin (NEURONTIN) 300 mg capsule oxyCODONE IR (ROXICODONE) 5 mg immediate release tablet pantoprazole DR (PROTONIX) 40 mg tablet XIFAXAN 550 mg tablet spironolactone (ALDACTONE) 100 mg tablet topiramate (TOPAMAX) 25 mg tablet traZODone (DESYREL) 100 mg tablet LACTOSE ORAL Take by mouth. Ciclopirox (CICLODAN) 8 % solution Apply to affected area daily at bedtime. 6.6 mL 2 Ciclopirox (CICLODAN) 8 % solution Apply to affected area daily at bedtime. 6.6 mL 2 No current facility-administered medications for this visit. Family History Problem Relation Age of Onset Hypertension Mother Diabetes Mother Stroke Mother other (lung) Father Heart Attack Brother Diabetes Maternal Grandmother Hypertension Maternal Grandmother Heart Maternal Grandfather Diabetes Paternal Grandmother other (lung) Paternal Grandfather Objective There were no vitals taken for this visit. - Cardiovascular: Dorsalis pedis and posterior tibial pulses palpable bilaterally; capillary refill <5 seconds; skin temperature warm proximally and distally. - Skin: No ulcerations noted on both feet. - Musculoskeletal: - Feet: - Loss of medial longitudinal arch bilaterally. - Pain present in the medial arch bilaterally; no pain in the plantar medial heel. - Neurological: Protective sensation intact bilaterally; negative Tinel's sign bilaterally. - Dermatological: - Toenails 1-5 bilaterally, except for the 4th toenail on the left foot, show significant thickening and discoloration with pain - Left great toenail partially removed; no signs of infection noted. Assessment AND Plan 1. Onychomycosis (B35.1) 2. Pain in toe of left foot (M79.675) 3. Pain in toe of right foot (M79.674) - Significant thickening and discoloration of toenails 1-5 bilaterally, except for the 4th toenail of the left foot; left great toenail partially removed. No signs of infection or ulcerations noted. - Due to patient's history of hepatitis C and liver cirrhosis, oral antifungal treatments are contraindicated. - Trimmed toenails 1-5 right and 2-5 left to alleviate discomfort. - Prescribed Penlac topical solution; discussed limited efficacy (10-20% success rate). - Advised keeping nails trimmed straight across to prevent further issues. - Discussed potential toenail removal if conservative measures fail. - Patient is a chronic smoker; advised on the negative impact of smoking on circulation and healing. 4. Plantar fasciitis (M72.2) - Loss of medial longitudinal arch noted on weight-bearing examination; contributing to foot cramps and arch pain. - Dorsalis pedis and posterior tibial pulses palpable bilaterally; capillary refill time <5 seconds; skin temperature warm proximally and distally. - Protective sensation intact bilaterally; no pain on palpation of plantar medial heel. - Provided arch support inserts for use in supportive footwear. - Educated on the importance of wearing supportive shoes (e.g., Winston, Asics, Hoka) and avoiding sandals and flip-flops. - Demonstrated stretching exe (more content not included)...[facility]07-03-2025 History of Present illness Narrative* Mariah Benavidez - 03/28/2025 1:01 PM EDT Subjective Carolina Hightower is a 49-year-old female with a history of liver failure, cirrhosis, and hepatitis C, presenting for evaluation of toenail issues and foot cramps. Onychomycosis: - Toenail issues for years, with significant thickening and discoloration. - Left great toenail partially removed by Carolina; uncertain if it will regrow. - Pain occurs when toenails get caught in blankets. - Unable to use nail clippers due to thickness. - Denies previous treatment due to liver issues. Foot Cramps: - Severe cramps in the arches of both feet. - No relief from various attempts to alleviate symptoms. - Denies burning, tingling, or numbness in the feet. Hepatitis C: - Diagnosed with hepatitis C; unable to receive treatment due to liver condition. - Uncertain of how hepatitis C was contracted. - Denies HIV. Liver Failure and Cirrhosis: - Diagnosed with liver failure and cirrhosis, attributed to alcohol use. Tobacco Use: - Smokes approximately half a pack per day. - Smoking since age 11, with periods of cessation during pregnancies. Musculoskeletal: (+) foot arch cramps, (-) foot arch pain Skin: (+) toenail pain, (+) thickened toenails Neurological: (-) burning in ankles/feet, (-) tingling in ankles/feet, (-) numbness in ankles/feet PAST MEDICAL HISTORY Diagnosis Date Depression GERD (gastroesophageal reflux disease) Hepatitis C 2015 Liver failure (HCC) 2014 Current Outpatient Medications Medication Sig Dispense Refill albuterol HFA (PROVENTIL HFA, VENTOLIN HFA) 90 mcg/actuation inhaler busPIRone (BUSPAR) 5 mg tablet Cholecalciferol, Vitamin D3, 50 mcg (2,000 unit) cap fluticasone (FLONASE) 50 mcg/actuation nasal spray furosemide (LASIX) 40 mg tablet gabapentin (NEURONTIN) 300 mg capsule oxyCODONE IR (ROXICODONE) 5 mg immediate release tablet pantoprazole DR (PROTONIX) 40 mg tablet XIFAXAN 550 mg tablet spironolactone (ALDACTONE) 100 mg tablet topiramate (TOPAMAX) 25 mg tablet traZODone (DESYREL) 100 mg tablet LACTOSE ORAL Take by mouth. Ciclopirox (CICLODAN) 8 % solution Apply to affected area daily at bedtime. 6.6 mL 2 Ciclopirox (CICLODAN) 8 % solution Apply to affected area daily at bedtime. 6.6 mL 2 No current facility-administered medications for this visit. Family History Problem Relation Age of Onset Hypertension Mother Diabetes Mother Stroke Mother other (lung) Father Heart Attack Brother Diabetes Maternal Grandmother Hypertension Maternal Grandmother Heart Maternal Grandfather Diabetes Paternal Grandmother other (lung) Paternal Grandfather Objective There were no vitals taken for this visit. - Cardiovascular: Dorsalis pedis and posterior tibial pulses palpable bilaterally; capillary refill<5 seconds; skin temperature warm proximally and distally. - Skin: No ulcerations noted on both feet. - Musculoskeletal: - Feet: - Loss of medial longitudinal arch bilaterally. - Pain present in the medial arch bilaterally; no pain in the plantar medial heel. - Neurological: Protective sensation intact bilaterally; negative Tinel's sign bilaterally. - Dermatological: - Toenails 1-5 bilaterally, except for the 4th toenail on the left foot, show significant thickening and discoloration with pain - Left great toenail partially removed; no signs of infection noted. Assessment & Plan 1. Onychomycosis (B35.1) 2. Pain in toe of left foot (M79.675) 3. Pain in toe of right foot (M79.674) - Significant thickening and discoloration of toenails 1-5 bilaterally, except for the 4th toenail of the left foot; left great toenail partially removed. No signs of infection or ulcerations noted. - Due to patient's history of hepatitis C and liver cirrhosis, oral antifungal treatments are contraindicated. - Trimmed toenails 1-5 right and 2-5 left to alleviate discomfort. - Prescribed Penlac topical solution; discussed limited efficacy (10-20% success rate). - Advised keeping nails trimmed straight across to prevent further issues. - Discussed potential toenail removal if conservative measures fail. - Patient is a chronic smoker; advised on the negative impact of smoking on circulation and healing. 4. Plantar fasciitis (M72.2) - Loss of medial longitudinal arch noted on weight-bearing examination; contributing to foot crampsand arch pain. - Dorsalis pedis and posterior tibial pulses palpable bilaterally; capillary refill time <5 seconds; skin temperature warm proximally and distally. - Protective sensation intact bilaterally; no pain on palpation of plantar medial heel. - Provided arch support inserts for use in supportive footwear. - Educated on the importance of wearing supportive shoes (e.g., Winston, Asics, Hoka) and avoiding sandals and flip-flops. - Demonstrated stretching exercises to alleviate arch pain and cramps. Recording using Tractive software for draft documentation of the visit was discussed with the patient/authorized inside account representative; all questions welcomed and answered. Patient/authorized inside account representative agreed to proceed Mariah Benavidez DPM * Obed Muller RN - 03/28/2025 10:[address] Benavidez Carolina was provided with Powerstep Comfortlast, size 7-8.5 Womens, and instructed/educated in its application, wear, and care. All questions were answered, and patient was able to demonstrate competence with the necessary skills to utilize the above equipment. Obed Muller RN * Maine Levin LPN - 03/28/2025 10:08 AM EDT AMB ROOMING INTAKE FLOWSHEET DATA Risk Screening Do you have concerns about personal safety or safety in the home?: No Patient presents with: Left Foot - Nail Fungus, New Right Foot - Nail Fungus, New [place] GERTRUDE Levin documented in this encounterUniversity [facility]07-03-2025 NoteHNO ID: [id number] Author: OBED MULLER RN Service: ? Author Type: Registered Nurse Type: Progress Notes Filed: 03/28/2025 13:01 Note Text: Per Dr. Benavidez, Carolina was provided with Powerstep Comfortlast, size 7-8.5 Womens, and instructed/educated in its application, wear, and care. All questions were answered, and patient was able to demonstrate competence with the necessary skills to utilize the above equipment. Obed Muller RNKet[facility]07-03-2025 Instructions* Patient Instructions* Mariah Benavidez - 03/28/2025 10:48 AM EDT Powerstep Original Full length. Can purchase at [facility] Runner and boots,shoes and more here in [place], [employer] in [place] or [place]. Also can find in [place] in [facility]. Powersteps can also be purchased online, starting around $45.00 If you have a metatarsal or dancer pad for your feet apply the pad directly to the insole so you can interchange between your shoes. Find a shoe with a removable insole and take this out and replace with your powerstep insole. Always bring powersteps with you when shopping for shoes so that you can make sure that everything fits well together - Oral antifungal pills are not recommended due to your liver condition. - Apply the topical Penlac lacquer to your affected toenails daily as directed; it clears fungus inabout 10-20% of cases. - Keep your toenails trimmed straight across and cut them regularly to prevent snagging and painfultears. - Wear supportive lace-up athletic shoes (Winston, Asics, Hoka) and avoid sandals, flip-flops, or other unsupportive footwear. - Use the arch support insert provided today in your sneakers to help support your medial foot arch. - Perform daily foot stretches: - Wall calf stretch: stand arms-length from a wall with feet slightly turned inward and lean forward. - Step heel drop: stand on a step and lower your heels below step level. documented in this encounterUniversity Hospitals Conneaut [facility]07-03-2025 NoteHNO ID: [id number] Author: MAINE LEVIN LPN Service: ? Author Type: LICENSED NURSE Type: Progress Notes Filed: 03/28/2025 13:01 Note Text: AMB ROOMING INTAKE FLOWSHEET DATA Risk Screening Do you have concerns about personal safety or safety in the home?: No Patient presents with: Left Foot - Nail Fungus, New Right Foot - Nail Fungus, New [facility] Radiology Diagnostic study [facility]06-20-2025 Consult note Author Milton [facility] Note Date/Time March 15, 2025 12:2 0pm [facility] Medical Records Department [address] [place] [address] Pre-Anesthesia Evaluation 03/15/25 1213 MR#: [id number] Acct: [id number] Name: CAROLINA HIGHTOWER Rep #:[id number] : 1975 49 From: Milton Martínez MD PCP: Eyad Saeed 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 Questions invited. The patient/parents/legal guardian/POA seems to understand and agrees to proceedwith anesthesia plan. Reviewed the physical assessment, medical history, allergy history and patient home medications list prior to surgery/procedure/anesthetic and documented any changes. Performed airway and anesthesia risk assessments. Anesthesia Type Anesthesia Type: MAC History Source History Obtained from:: Patient and Chart Anesthesia Focused Assessment* Temperature: 98.1 F Pulse Rate: 60 Blood Pressure: 112/57 Respiratory Rate: 16 Pulse Ox: 97 Oxygen Delivery Method: Room Air Airway Assessment Mouth opens: >3 cm Mallampati Score: III Teeth Condition: Missing (Patient is edentulous.) Neck Range of motion (ROM): Full ROM Labs Anesthesia Preop lab: CBC WBC 8.1 K/mm3 (4.4-11.0) 03/07/25 08:03/07/25 RBC 4.16 M/mm3 (4.2-5.4) L 03/07/25 08:19 03/07/25 Hgb 13.1 g/dL (12.0-15.0) 03/07/25 08:03/07/25 Hct 38.8 % (37-47) 03/07/25 08:19 03/07/25 Plt Count 62 K/mm3 (150-450) L 03/07/25 08:19 03/07/25 CHEMISTRY Potassium 3.7 mmol/L (3.3-5.1) 03/07/25 08:19 03/07/25 Sodium 136 mmol/L (133-145) 03/07/25 08:19 03/07/25 Magnesium 2.0 mg/dL (1.6-2.6) 05/29/24 19:05/29/24 Phosphorus 1.9 mg/dL (2.5-4.9) L 05/29/24 19:30 05/29/24 BUN 10 mg/dL (4-19) 03/07/25 08:03/07/25 Creatinine 1.04 mg/dL (0.70-1.20) 03/07/25 08:03/07/25 Glucose 107 mg/dL (70-99) H 03/07/25 08:19 03/07/25 TSH 1.920 uIU/mL (0.300-4.200) 03/07/25 08:02/24 COAG PT 18.8 SECONDS (11.7-14.9) H 03/07/25 08:19 02/24 11/20 Urine Test Negative Negative 05/17/24 13:58 05/17/24 Pre-Assessment Diagnosis/Proposed Procedure Planned Operative Procedure(s): EGD Anesthesia History 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 When Was Last Pacemaker Check QUESTION #4 FULL TEXT: You/Your Family Experience fever (hyperthermia) with Anesthesia Last Oral Intake Last Oral intake: Last Oral Intake NPO since 21:00 03/15/25 11:50 Meds taken in AM with sips of Yes 03/15/25 11:50 water? Meds patient instructed to take am of surgery Any additional information?: Yes Meds taken in AM with sips of water?: Yes Meds patient instructed to take am of surgery: Oxycodone PONV PONV - projector operator: PONV - projector operator Female Yes 03/13/25 16:01 HX of Motion Sickness No 03/13/25 16:01 HX of N/V After Surgery No 03/13/25 16:01 Non-Smoker No 03/13/25 16:01 Duration of Surgery greater No 03/13/25 16:01 than 60 minutes Number of Risk Factors 1 03/13/25 16:01 PONV Score Low Risk 03/13/25 16:01 Height & Weight Height & Weight: Anesthesia: Height & Weight Height 5 ft 2 in 03/15/25 11:50 Weight: 83.2 kg 03/15/25 11:50 Body Mass Index (BMI) 33.5 03/15/25 11:50 Respiratory Assessment Respiratory Assessment - projector operator: Respiratory Tract Infection Hx - projector operator Hx Respiratory Tract Infection No 03/13/25 16:01 Any additional information?: Yes Hx Respiratory Tract Infection: No History of Anesthesia Respiratory Infection details: Patient says it has been harder to breathe in the past couple weeks secondary to the humidity STOP Sleep Apnea STOP Sleep Apnea - projector operator: STOP Sleep Apnea - projector operator Hx Hypertension No 03/13/25 16:01 Hx Sleep Apnea No 03/13/25 16:01 CPAP No 01/18/25 15:18 BIPAP No 01/18/25 15:18 Do you snore loudly (louder No 03/13/25 16:01 than talking or can be heard Do you often feel tired/ No 03/13/25 16:01 fatigued/ sleepy during daytime? Has anyone observed you stop No 03/13/25 16:01 breathing during sleep? STOP Results Negative 03/13/25 16:01 QUESTION #5 FULL TEXT : Do you snore loudly (louder than talking or can be heard through closed doors)? 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 Specify any problems Hx of Preganancy in last 3 No 03/13/25 16:01 Months Nurse Filling Out Transfusion VLEHMAN 03/13/25 16:01 & Questions: Date: 03/13/25 03/13/25 16:01 Time: 16:02 03/13/25 16:01 Patient unable to answer at this time (ie. confused, unrespo /Reproduction History /Reproductive History - projector operator: /Reproductive Hx- projector operator Hx Now No 03/13/25 16:01 Gestational Age (in weeks): EDC: Hx Hx Para Hx Section SAB No 03/13/25 16:01 Active Medications Active Medications: Current Medications Generic Name Dose Route Start Last Admin Trade Name Freq PRN Reason Stop Dose Admin Lactated Ringer's 1,000 mls @ 15 mls/hr 03/15/25 11:45 03/15/25 12:00 IV 15 mls/hr .Q48H NELIA Administration PFSH Medical History Dietary restriction History of pain when walking Decompensated cirrhosis Redness of skin Blackout Abdominal ascites Urolithiasis Hydronephrosis with renal calculous obstruction Hydroureteronephrosis [...] gabapentin 100 mg capsule 100 mg PO Q8H nerve pain 06/12/24 History melatonin 5 mg tablet 5 mg PO QHS PRN sleep 06/12/24 History desvenlafaxine succinate 50 mg 50 mg PO DAILY #30 tabs 06/19/24 Unknown Rx tablet,extended release 24 hr spironolactone 50 mg tablet 50 mg PO [...] mg tablet 50 mg PO QHS PRN sleep 01/23 Unknown History furosemide 40 mg tablet (Lasix) 40 mg PO DAILY DIURETI C #30 tabs 02/05/25 Unknown Rx lactulose 10 gram/15 mL oral 10 g (15 mL) PO TID PRN s tomach 02/05/25 Unknown Rx solution upset #3,000 mL oxycodone 5 mg tablet 5 mg PO Q6H PRN pain 4 days #15 02/08/25 03/15/25 Rx tabs pantoprazole 40 mg tablet,delayed 40 mg PO DAILY 03/13 Unknown History release Allergy/AdvReac Type Severity Reaction Status Date / Time bupropion HCl (From Allergy SEIZURES Verified 03/15/25 11:50 Wellbutrin) codeine Allergy Rash Verified 03/15/25 11:50 Family History Mother Diabetes Father Cancer HX [...] do you feel safe at home: Yes Review of Systems (Anesthesia) ROS Narrative System reviewed and no additional complaints, except as documented. 03/15/25 1220 <Electronically signed by Milton mcarthur MD> Date _ Milton Martínez MD Cosigner Signature: Date CC: ~ Signed [facility] Work Phone: [phone]) 601-453806-20-2025 History and physical note Author Marcelina Friend [facility] Note Date/Time March 15, 2025 12:0 6pm [facility] Medical Records Department [address] [place] [address] History & Physical Exam 03/15/25 1155 MR#: [id number] Acct: [id number] Name: CAROLINA HIGHTOWER Rep #:[id number] : 1975 49 From: Marcelina Friend DO PCP: Eyad Saeed CENTRIFUGAL CASTING MACHINE OPERATOR-C Status:[facility] Location: [place] [address] HPI - General General Date of Admission: 03/15/25 Date of Service: 03/15/25 Chief Complaint: Varices surveillance HPI Narrative CAROLINA HIGHTOWER, is a 49 F with a history of alcoholic cirrhosis CT abd/pel 06.12.21 pain HCV Hx with moderately cirrhotic liver with volume redistribution to right lobe without ascites; moderate splenomegaly; inflammation of subhepatic space r/t right colon. Fib4 8.76 ? [facility] hospitalization 05.19.22-05.21.22. [facility] ED with increased fatigue, forgetfulness and confusion. History of HCV with remote history of IV drug use with possible cirrhosis with thrombocytopenia through [facility]. She was admitted for acute HE secondary to decompensated cirrhosis with hyperammonemia treated with lactulose. ? CT abd/pel 05.19.22 with cirrhotic liver with prominent caudate lobe and nodular surface without mass; splenomegaly; pancreatic calcification in uncinate process; renal calculi. Resolution of previously noted inflammation. Fib4 11.76 ? *BGI established 08.27.22 following [facility] hospitalization as noted above. ?EGD 09.15.22 noting Grade I esophageal varices; severe portal HTNgastropathy. H.Pylori negative. ?Recommend liver biopsy Liver biopsy scheduled for 10.01.22, not performed. [facility] hospitalization 07.20.23-07.21.23 [facility] ED with toe pain, abdominal distention. ? CT abd/pel 07.20.23 with Cirrhosis, splenomegaly, ascites,b/l Non obstructing renal calculi, possible wall thickening of ascending colon ?US Paracentesis 07.21.23 3550ml fluid removed MELD 13 ? Child- Palma ?C OV 07.22.23 Pt states she is still having abdominal pain and distention. Feels better after paracentesis. Does not recall ever taking the Epclusa we prescribedfor Hep. C. Did not come for last appointment. Pt presents very fatigued and confused. Patient was admitted on 07/20/2023 and discharged next day. ?She was admitted mainly for ascites that required paracentesis. ?SBP was ruled out. ?Rosemary had left great toe after fall on gravel about a week prior to admission on 07/21/2023. ?She again injured her left great toe and bloody stain on the Band-Aid. OV ?03.09.24 Pt states she is trying to take medications consistently but forgets. Pt has been noncompliant with medical treatment from this medical practice. ?Patient very sleepy drowsy and yawning. ?Patient drinks a lot of pop,probably also fried/fast food. ?Patient not adherent to lactulose. ?Does not have abdominal pain. Gets frequent paracentesis. Does not have significant fluidnow. Patient on his spironolactone 100 mg daily. ?Continue lactulose. [facility] ED 05.11.24 Abdominal pain. Received Protonix and a GI cocktail. The patient's blood work was obtained shows a white count 7.8 hemoglobin 12.3 platelet count of 69. ?She is chronically thrombocytopenic. ?AST and ALT 137 109total bilirubin 2.4 with a direct bili 1.07. ?Lipase is 53. ?CT of the abdomen pelvis demonstrates ascites cirrhotic liver distended gallbladder. ?Splenomegalyis not new. ?She has a degree of hydronephrosis on the right which is also not new. ?She has an intrarenal stone. Follow-up long-term flores with gastroenterology because of her cirrhosis and perhaps she is developing ulcer disease or needs a repeat EGD from her one earlier this year. [facility] Op 05.13.24- Cystoscopy and R ureteral stent placement per Dr. Dawson. Acuteobstructive uropathy with right renal and distal ureteral stones with hydroureteronephrosis with 0.8 cm stone noted in the lower pole of the right kidney and right distal ureteral region with low suspicion for UTI, but noted 11,000- 25,000 CFU E. Coli and MRSA on 04/24/24 UCx, follow-up 05/13/24 UCx withoutgrowth of note OV 06.22.24 Unaware of current medications. Would like supportive employment case manager to help manage medication. ?Does not have PCP. ?Fatigue and weakness. Generalized abdominal distention and pain. Nausea after eating, Alternating constipation anddiarrhea. Heartburn after eating acidic food/drinks. OV 01.23.25 D/C from [facility]. She went to [facility] ED on 01/17/2025 for epistaxis. She ran out of Xifaxan about a month ago. Reports significant abdominal pain and bloating for the last week. Rates pain 8 out of ten today. SOB and difficulty sleeping. Reports would get paracentesis every week. Has not has paracentesis for the last month. Occ loose stools and bowel incontinence, attributes to lactulose. Nose bleeds last couple weeks, possibly attributes to sinus infection. [facility] Medical History Dietary restriction History of pain when walking Decompensated cirrhosis Redness of skin Blackout Abdominal ascites Urolithiasis Hydronephrosis with renal calculous obstruction Hydroureteronephrosis [...] gabapentin 100 mg capsule 100 mg PO Q8H nerve pain 06/12/24 History melatonin 5 mg tablet 5 mg PO QHS PRN sleep 06/12/24 History desvenlafaxine succinate 50 mg 50 mg PO DAILY #30 tabs 06/19/24 Unknown Rx tablet,extended release 24 hr spironolactone 50 mg tablet 50 mg PO [...] mg tablet 50 mg PO QHS PRN sleep 01/23 Unknown History furosemide 40 mg tablet (Lasix) 40 mg PO DAILY DIURETI C #30 tabs 02/05/25 Unknown Rx lactulose 10 gram/15 mL oral 10 g (15 mL) PO TID PRN s tomach 02/05/25 Unknown Rx solution upset #3,000 mL oxycodone 5 mg tablet 5 mg PO Q6H PRN pain 4 days #15 02/08/25 03/15/25 Rx tabs pantoprazole 40 mg tablet,delayed 40 mg PO DAILY 03/13 Unknown History release Allergy/AdvReac Type Severity Reaction Status Date / Time bupropion HCl (From Allergy SEIZURES Verified 03/15/25 11:50 Wellbutrin) codeine Allergy Rash Verified 03/15/25 11:50 Family History Mother Diabetes Father Cancer HX [...] at home: Yes ROS Constitutional Constitutional: Denies fatigue, fever(s), poor appetite, weight gain or weight loss Gastrointestinal Gastrointestinal: Denies belching, bloating, change in bowel habits, change in stool character, chewing difficulty, coffee ground emesis, constipation, cramping, diarrhea, dyspepsia, dysphagia, early satiety, excessive flatus, fecalincontinence, heartburn, hematemesis, hematochezia, hemorrhoids, loose stools, melena, nausea, odynophagia, rectal bleeding, tenesmus, vomiting or weight changes Vital Signs Vital Signs Vital Signs: 03/15/25 11:50 03/15/25 11:50 Temperature 98.1 F Temperature Source Temporal Pulse Rate 60 Respiratory Rate 16 Respiratory Pattern Normal Blood Pressure 112/57 L Blood Pressure Mean 75 Blood Pressure Source Monitor Blood Pressure Position Semi-Fowlers Blood Pressure Location Right Arm Pulse Ox 97 Oxygen Delivery Method Room Air Weight Weight: 183 lb 6.793 oz Body Mass Index (BMI) 33.5 Physical Exam Const alert, oriented x3, no apparent distress and healthy appearing General Appearance: cooperative GI normal to inspection, nondistended, normoactive bowel sounds, soft to palpation,non-tender and non-distended Percussion: normal to percussion Rectal Exam: deferred Assessment & Plan Assessment/Plan (1) Hepatitis C, chronic: QUALIFIERS: Hepatic coma status: without hepatic coma Qualified Code(s): B18.2 - Chronic viral hepatitis C (2) Cirrhosis of liver: QUALIFIERS: Hepatic cirrhosis type: unspecified hepatic cirrhosis Ascites presence: with ascites Qualified Code(s): K74.60 - Unspecified cirrhosis of liver; R18.8 - Other ascites PLAN: Assessment and Plan Assessment and Plan (1) Cirrhosis of liver: Status: Chronic Qualifiers: Hepatic cirrhosis type: unspecified hepatic cirrhosis Ascites presence:with ascites Qualified Code(s): K74.60 - Unspecified cirrhosis of liver; R18.8 - Other ascites Plan: Patient has HCV related, nonalcoholic fatty liver cirrhosis decompensated with ascites requiring multiple recurrent paracentesis, hepatic encephalopathy, thrombocytopenia and esophageal varices suggestive of portal hypertension MELD sodium score 15 from labs 01/17/2025 done in [facility] Continue diuretic furosemide 40 mg daily spironolactone 100 mg daily. Continue lactulose and Xifaxan Patient had multiple CT scans show cirrhotic changes, recannulized periumbilicalvein, distal esophageal varices, moderate splenomegaly GB wall thickening but itwas not triple phase. AFP elevated 11.9 on 04/13/2024. CA 19-[address] triple phase ordered to rule out HCC. Patient stated she has furosemide and spironolactone. Xifaxan refilled. Scheduled paracentesis and EGD. Comprehensive labs ordered. Follow-up in 3 (2) Hepatitis C, chronic: Status: Chronic Qualifiers: Hepatic coma status: without hepatic coma Qualified Code(s): B18.2 - Chronic viral hepatitis C Plan: HCVRNA quantitative ordered. Last HCV antibody negative/reactive 03/15/25 1206 <Electronically signed by Marcelina Foster DO> Cosigner Signature (if applicable): CC: Marcelina Foster DO; Eyad ALSTON CENTRIFUGAL CASTING MACHINE OPERATOR-C Darlin~ Signed [facility] Work Phone: 1(794) 380-926606-20-2025 Consult note [facility] Medical Records Department [address] [place] [address] Anesthesia Postop Eval I 03/15/25 1324 MR#: [id number] Acct: [id number] Name: CAROLINA HIGHTOWER Rep #:[id number] : 1975 49 From: Cindi Newman PCP: Eyad Saeed CENTRIFUGAL CASTING MACHINE OPERATOR-C Status:REG SDC Y Race: C Location: [place] [address] Anesthesia: Postop Eval I Current Vital Signs Temperature: 97.4 F Pulse Rate: 68 Blood Pressure: 99/56 Respiratory Rate: 16 Pulse Ox: 95 Oxygen Delivery Method: Room Air Assessment Airway patent: Yes Spontaneous unlabored respirations: Yes Mental status: Asleep nausea: No Vomiting: No Anesthesia Complication: No Fluid Hydration Crystalloid volume administer (ml): 200 Total IV fluid infused: 200 Progress Note Anesthesia document: Postop Eval 1 completed: Yes 03/15/25 1325 > Date _ Cindi Newman Cosigntemi Signature: Date CC: ~ Signed [facility]06-20-2025 Procedure note [facility] Medical Records Department [address] [place] [address] EGD Report MR#: [id number] Acct: [id number] Name: CAROLINA HIGHTOWER Rep #:[id number] : 1975 49 From: Marcelina Foster DO PCP: Eyad Saeed [facility] CENTRIFUGAL CASTING MACHINE OPERATOR-C Status[place] [facility] Patient Name: Carolina Hightower Procedure Date: 03/15/2025 1:03 PM Date of : 1975 Age: 49 Procedure: Upper GI endoscopy Indications: Follow-up of esophageal varices Providers: Marcelina Foster DO Referring MD: Eyad Saeed Community Arts Worker, Community Arts Worker-c Medicines: Monitored Anesthesia Care Patient Profile: This is a 49 year old female. Refer to note in patient chart for documentation of history and physical. Patient has symptoms of chronic abdominal distention, chronic epigastric abdominal pain and chronic nausea. Complications: No immediate complications. Procedure: Pre-Anesthesia Assessment: - Prior to the procedure, a History and Physical was performed, and patient medications and allergies were reviewed. The patient is competent. The risks and benefits of the procedure and the sedation options and risks were discussed with the patient. All questions were answered and informed consent was obtained. Patient identification and proposed procedure were verified in the pre-procedure area. Mental Status Examination: alert and oriented. Airway Examination: normal oropharyngeal airway and neck mobility. Respiratory Examination: clear to auscultation. CV Examination: normal. Prophylactic Antibiotics: The patient does not require prophylactic antibiotics. Prior Anticoagulants: The patient has taken no anticoagulant or antiplatelet agents except for NSAID medication. ASA Grade Assessment: II - A patient with mild systemic disease. After reviewing the risks and benefits, the patient was deemed in satisfactory condition to undergo the procedure. The anesthesia plan was to use monitored anesthesia care (MAC). Immediately prior to administration of medications, the patient was re-assessed for adequacy to receive sedatives. The heart rate, respiratory rate, oxygen saturations, blood pressure, adequacy of pulmonary ventilation, and response to care were monitored throughout the procedure. The physical status of the patient was re-assessed after the procedure. After obtaining informed consent, the endoscope was passed under direct vision. Throughout the procedure, the patient's blood pressure, pulse, and oxygen saturations were monitored continuously. The gastroscope was introduced through the mouth, and advanced to the third part of the duodenum. Small bowel enteroscopy was deemed necessary. The upper GI endoscopy was accomplished without difficulty. The patient tolerated the procedure well. Scope In: 1:13:43 PM Scope Out: 1:15:22 PM Total Procedure Duration Time 0 hours 1 minute 39 seconds Findings: Small (< 5 mm) varices were found in the lower third of the esophagus. Severe portal hypertensive gastropathy was found in the entire examined stomach. Biopsies were taken with a cold forceps for histology. Verification of patient identification for the specimen was done. Biopsies were taken with a cold forceps for Helicobacter pylori testing. Verification of patient identification for the specimen was done. Estimated blood loss was minimal. The examined duodenum was normal. Impression: - Small (< 5 mm) esophageal varices. - Portal hypertensive gastropathy. Biopsied. - Normal examined duodenum. Recommendation: - Discharge patient to home. - Resume previous diet. - Continue present medications. Procedure Code(s): --- Professional --- 85978, Small intestinal endoscopy, enteroscopy beyond second portion of duodenum, not including ileum; with biopsy, single or multiple CPT copyright 2021 [employer]. All rights reserved. The codes documented in this report are preliminary and upon unleavened dough mixer review may be revised to meet current compliance requirements. Marcelina Foster DO 03/15/2025 1:19:03 PM This report has been signed electronically. Number of Addenda: 0 Note Initiated On: 03/15/2025 1:03 PM 03/15/25 1319 Date _ Marcelina Foster DO Cosigner Signature: Date (if indicated) CC: Marcelina Foster DO; Eyad DYER CENTRIFUGAL CASTING MACHINE OPERATOR-C Beam ~ Date Dictated: 03/15/25 1303 Date Transcribed: Bilingual Patient Support Caseworker: VASILE Signed [facility]06-20-2025 Procedure note [facility] Medical Records Department [address] [place] [address] Operative Report - CC Letter MR#: [id number] Acct: [id number] Name: CAROLINA HIGHTOWER Rep #:[id number] : 1975 49 From: Marcelina Foster DO PCP: Eyad Saeed CENTRIFUGAL CASTING MACHINE OPERATOR-C Status:[place] [facility] 03/15/2025 Eyad Saeed Community Arts Worker, Community Arts Worker-c Re : Upper GI endoscopy procedure for Carolina Hightower Dear Darlin This procedure was performed on Tuesday, March 15, 2025. My impressions and recommendations are as follows: Impressions : - Small (< 5 mm) esophageal varices. - Portal hypertensive gastropathy. Biopsied. - Normal examined duodenum. Recommendations : - Discharge patient to home. - Resume previous diet. - Continue present medications. My findings are described in the full procedure note, which is enclosed. If I can be of further assistance, please feel free to contact me at . Sincerely, Marcelina Foster DO 03/15/2025 1:19:03 PM This report has been signed electronically. 03/15/25 1319 Date _ Marcelina Foster DO Cosigner Signature: Date (if indicated) CC: Marcelina Foster DO; Eyad ALSTON CENTRIFUGAL CASTING MACHINE OPERATOR-C Darlin ~ Date Dictated: 03/15/25 1303 Date Transcribed: Bilingual Patient Support Caseworker: VASILE Signed [facility]06-20-2025 Evaluation note* Diagnosis Onset Date Resolution Status Admit Date Cirrhosis of liver chronic February 252024 11:15am Hepatitis C, chronic chronic March 15, 2025 11:15am Cirrhosis of liver chronic May 15, 2025 2:45pm Hepatitis C, chronic chronic 2024 2:45pm [facility] Work Phone: 1(123) 509-236606-20-2025 Consult note [facility] Medical Records Department [address] [place] [address] Pre-Anesthesia Evaluation 03/15/25 1213 MR#: [id number] Acct: [id number] Name: CAROLINA HIGHTOWER Rep #:[id number] : 1975 49 From: Milton Martínez MD PCP: Eyad Saeed CENTRIFUGAL CASTING MACHINE OPERATOR-C Status:REG SDC Y Race: C Location: [place] [address] ASA Classification* ASA Classification ASA Classification: 3 Assessment & Plan Anesthesia* Anesthesia Assessment Anesthesia Assessment: Discussed sedation and/or anesthesia options, risks, benefits, and alternatives with patient/parents/legal guardian/POA. Questions invited. The patient/parents/legal guardian/POA seems to understand and agrees to proceedwith anesthesia plan. Reviewed the physical assessment, medical history, allergy history and patient home medications list prior to surgery/procedure/anesthetic and documented any changes. Performed airway and anesthesia risk assessments. Anesthesia Type Anesthesia Type: MAC History Source History Obtained from:: Patient and Chart Anesthesia Focused Assessment* Temperature: 98.1 F Pulse Rate: 60 Blood Pressure: 112/57 Respiratory Rate: 16 Pulse Ox: 97 Oxygen Delivery Method: Room Air Airway Assessment Mouth opens: >3 cm Mallampati Score: III Teeth Condition: Missing (Patient is edentulous.) Neck Range of motion (ROM): Full ROM Labs Anesthesia Preop lab: CBC WBC 8.1 K/mm3 (4.4-11.0) 03/07/25 08:19 03/07/25 RBC 4.16 M/mm3 (4.2-5.4) L 03/07/25 08:19 03/07/25 Hgb 13.1 g/dL (12.0-15.0) 03/07/25 08:19 03/07/25 Hct 38.8 % (37-47) 03/07/25 08:19 03/07/25 Plt Count 62 K/mm3 (150-450) L 03/07/25 08:19 03/07/25 CHEMISTRY Potassium 3.7 mmol/L (3.3-5.1) 03/07/25 08:19 03/07/25 Sodium 136 mmol/L (133-145) 03/07/25 08:19 03/07/25 Magnesium 2.0 mg/dL (1.6-2.6) 05/29/24 19:30 05/29/24 Phosphorus 1.9 mg/dL (2.5-4.9) L 05/29/24 19:30 05/29/24 BUN 10 mg/dL (4-19) 03/07/25 08:19 03/07/25 Creatinine 1.04 mg/dL (0.70-1.20) 03/07/25 08:19 03/07/25 Glucose 107 mg/dL (70-99) H 03/07/25 08:19 03/07/25 TSH 1.920 uIU/mL (0.300-4.200) 03/07/25 08:19 02/24 11/20 COAG PT 18.8 SECONDS (11.7-14.9) H 03/07/25 08:19 02/24 11/20 Urine Test Negative Negative 05/17/24 13:58 05/17/24 Pre-Assessment Diagnosis/Proposed Procedure Planned Operative Procedure(s): EGD Anesthesia History 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 When Was Last Pacemaker Check QUESTION #4 FULL TEXT: You/Your Family Experience fever (hyperthermia) with Anesthesia Last Oral Intake Last Oral intake: Last Oral Intake NPO since 21:00 03/15/25 11:50 Meds taken in AM with sips of Yes 03/15/25 11:50 water? Meds patient instructed to take am of surgery Any additional information?: Yes Meds taken in AM with sips of water?: Yes Meds patient instructed to take am of surgery: Oxycodone PONV PONV - projector operator: PONV - projector operator Female Yes 03/13/25 16:01 HX of Motion Sickness No 03/13/25 16:01 HX of N/V After Surgery No 03/13/25 16:01 Non-Smoker No 03/13/25 16:01 Duration of Surgery greater No 03/13/25 16:01 than 60 minutes Number of Risk Factors 1 03/13/25 16:01 PONV Score Low Risk 03/13/25 16:01 Height & Weight Height & Weight: Anesthesia: Height & Weight Height 5 ft 2 in 03/15/25 11:50 Weight: 83.2 kg 03/15/25 11:50 Body Mass Index (BMI) 33.5 03/15/25 11:50 Respiratory Assessment Respiratory Assessment - projector operator: Respiratory Tract Infection Hx - projector operator Hx Respiratory Tract Infection No 03/13/25 16:01 Any additional information?: Yes Hx Respiratory Tract Infection: No History of Anesthesia Respiratory Infection details: Patient says it has been harder to breathe in the past couple weeks secondary to the humidity STOP Sleep Apnea STOP Sleep Apnea - projector operator: STOP Sleep Apnea - projector operator Hx Hypertension No 03/13/25 16:01 Hx Sleep Apnea No 03/13/25 16:01 CPAP No 01/18/25 15:18 BIPAP No 01/18/25 15:18 Do you snore loudly (louder No 03/13/25 16:01 than talking or can be heard Do you often feel tired/ No 03/13/25 16:01 fatigued/ sleepy during daytime? Has anyone observed you stop No 03/13/25 16:01 breathing during sleep? STOP Results Negative 03/13/25 16:01 QUESTION #5 FULL TEXT : Do you snore loudly (louder than talking or can be heard through closeddoors)? 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 Specify any problems Hx of Preganancy in last 3 No 03/13/25 16:01 Months Nurse Filling Out Transfusion [facility] 03/13/25 16:01 & Questions: Date: 03/13/25 03/13/25 16:01 Time: 16:02 03/13/25 16:01 Patient unable to answer at this time (ie. confused, unrespo /Reproduction History /Reproductive History - projector operator: /Reproductive Hx- projector operator Hx Now No 03/13/25 16:01 Gestational Age (in weeks): EDC: Hx Hx Para Hx Section SAB No 03/13/25 16:01 Active Medications Active Medications: Current Medications Generic Name Dose Route Start Last Admin Trade Name Freq PRN Reason Stop Dose Admin Lactated Ringer's 1,000 mls @ 15 mls/hr 03/15/25 11:45 03/15/25 12:00 IV 15 mls/hr .Q48H NELIA Administration PFSH Medical History Dietary restriction History of pain when walking Decompensated cirrhosis Redness of skin Blackout Abdominal ascites Urolithiasis Hydronephrosis with renal calculous obstruction Hydroureteronephrosis [...] gabapentin 100 mg capsule 100 mg PO Q8H nerve pain 06/12/24 History melatonin 5 mg tablet 5 mg PO QHS PRN sleep 06/12/24 History desvenlafaxine succinate 50 mg 50 mg PO DAILY #30 tabs 06/19/24 Unknown Rx tablet,extended release 24 hr spironolactone 50 mg tablet 50 mg PO [...] mg tablet 50 mg PO QHS PRN sleep 01/23 Unknown History furosemide 40 mg tablet (Lasix) 40 mg PO DAILY DIURETI C #30 tabs 02/05/25 Unknown Rx lactulose 10 gram/15 mL oral 10 g (15 mL) PO TID PRN s tomach 02/05/25 Unknown Rx solution upset #3,000 mL oxycodone 5 mg tablet 5 mg PO Q6H PRN pain 4 days #15 02/08/25 03/15/25 Rx tabs pantoprazole 40 mg tablet,delayed 40 mg PO DAILY 03/13 Unknown History release Allergy/AdvReac Type Severity Reaction Status Date / Time bupropion HCl (From Allergy SEIZURES Verified 03/15/25 11:50 Wellbutrin) codeine Allergy Rash Verified 03/15/25 11:50 Family History Mother Diabetes Father Cancer HX [...] do you feel safe at home: Yes Review of Systems (Anesthesia) ROS Narrative System reviewed and no additional complaints, except as documented. 03/15/25 1220 lyubov DOOLEY> Date _ Milton Cordero Signature: Date CC: ~ Signed [facility]06-20-2025 History and physical note [facility] Medical Records Department [address] [place] [address] History & Physical Exam 03/15/25 1155 MR#: [id number] Acct: [id number] Name: CAROLINA HIGHTOWER Rep #:[id number] : 1975 49 From: Marcelina Friend DO PCP: Eyad Saeed [place] CENTRIFUGAL CASTING MACHINE OPERATOR-C Status[place] [facility] Location: [place] [address] HPI - General General Date of Admission: 03/15/25 Date of Service: 03/15/25 Chief Complaint: Varices surveillance HPI Narrative CAROLINA HIGHTOWER, is a 49 F with a history of alcoholic cirrhosis CT abd/pel 06.12.21 pain HCV Hx with moderately cirrhotic liver with volume redistribution to right lobe without ascites; moderate splenomegaly; inflammation of subhepatic space r/t right colon. Fib4 8.76 ? [facility] hospitalization 05.19.22-05.21.22. [facility] ED with increased fatigue, forgetfulness and confusion. History of HCV with remote history of IV drug use with possible cirrhosis with thrombocytopenia through [facility]. She was admitted for acute HE secondary to decompensated cirrhosis with hyperammonemia treated with lactulose. ? CT abd/pel 05.19.22 with cirrhotic liver with prominent caudate lobe and nodular surface without mass; splenomegaly; pancreatic calcification in uncinate process; renal calculi. Resolution of previously noted inflammation. Fib4 11.76 ? *BGI established 08.27.22 following [facility] hospitalization as noted above. ?EGD 09.15.22 noting Grade I esophageal varices; severe portal HTNgastropathy. H.Pylori negative. ?Recommend liver biopsy Liver biopsy scheduled for 10.01.22, not performed. [facility] hospitalization 07.20.23-07.21.23 [facility] ED with toe pain, abdominal distention. ? CT abd/pel 07.20.23 with Cirrhosis, splenomegaly, ascites,b/l Non obstructingrenal calculi, possible wall thickening of ascending colon ?US Paracentesis 07.21.23 3550ml fluid removed MELD 13 ? Child- Palma ?C OV 07.22.23 Pt states she is still having abdominal pain and distention. Feels better after paracentesis. Does not recall ever taking the Epclusa we prescribedfor Hep. C. Did not come for last appointment. Pt presents very fatigued and confused. Patient was admitted on 07/20/2023 and discharged next day. ?She was admitted mainly for ascites that required paracentesis. ?SBP was ruled out. ?Shealsohad left great toe after fall on gravel about a week prior to admission on 07/21/2023. ?She again injured her left great toe and bloody stain on the Band-Aid. OV ?03.09.24 Pt states she is trying to take medications consistently but forgets. Pt has been noncompliant with medical treatment from this medical practice. ?Patient very sleepy drowsy and yawning.?Patient drinks a lot of pop,probably also fried/fast food. ?Patient not adherent to lactulose. ?Does not have abdominal pain. Gets frequent paracentesis. Does not have significant fluidnow. Patient on his spironolactone 100 mg daily. ?Continue lactulose. [facility] ED 05.11.24 Abdominal pain. Received Protonix and a GI cocktail. The patient's blood work was obtained shows a white count 7.8 hemoglobin 12.3 platelet count of 69. ?She is chronically thrombocytopenic. ?AST and ALT 137 109total bilirubin 2.4 with a direct bili 1.07. ?Lipase is 53. ?CT of the ab domen pelvis demonstrates ascites cirrhotic liver distended gallbladder. ?Splenomegalyis not new. ?She has a degree of hydronephrosis on the right which is also not new. ?She has an intrarenal stone.Follow-up long-term flores with gastroenterology because of her cirrhosis and perhaps she is developing ulcer disease or needs a repeat EGD from her one earlier this year. [facility] Op 05.13.24- Cystoscopy and R ureteral stent placement per Dr. Dawson. Acuteobstructive uropathy with right renal and distal ureteral stones with hydroureteronephrosis with 0.8 cm stone noted in the lower pole of the right kidney and right distal ureteral region with low suspicion for UTI, but noted 11,000-25,000 CFU E. Coli and MRSA on 04/24/24 UCx, follow-up 05/13/24 UCx withoutgrowth of note OV 06.22.24 Unaware of current medications. Would like supportive employment case manager to help manage medication. ?Doesnot have PCP. ?Fatigue and weakness. Generalized abdominal distention and pain. Nausea after eating, Alternating constipation anddiarrhea. Heartburn after eating acidic food/drinks. OV 01.23.25 D/C from [facility]. She went to [facility] on 01/17/2025 for epistaxis. She ran out of Xifaxan about a month ago. Reports significant abdominal pain and bloating for the last week. Rates pain 8 out of ten today. SOB and difficulty sleeping. Reports would get paracentesis every week. Has not has paracentesis for the last month. Occ loose stools and bowel incontinence, attributes to lactulose. Nose bleeds last couple weeks, possibly attributes to sinus infection. [facility] Medical History Dietary restriction History of pain when walking Decompensated cirrhosis Redness of skin Blackout Abdominal ascites Urolithiasis Hydronephrosis with renal calculous obstruction Hydroureteronephrosis [...] gabapentin 100 mg capsule 100 mg PO Q8H nerve pain 06/12/24 History melatonin 5 mg tablet 5 mg PO QHS PRN sleep 06/12/24 History desvenlafaxine succinate 50 mg 50 mg PO DAILY #30 tabs 06/19/24 Unknown Rx tablet,extended release 24 hr spironolactone 50 mg tablet 50 mg PO [...] mg tablet 50 mg PO QHS PRN sleep 01/23 Unknown History furosemide 40 mg tablet (Lasix) 40 mg PO DAILY DIURETI C #30 tabs 02/05/25 Unknown Rx lactulose 10 gram/15 mL oral 10 g (15 mL) PO TID PRN s tomach 02/05/25 Unknown Rx solution upset #3,000 mL oxycodone 5 mg tablet 5 mg PO Q6H PRN pain 4 days #15 02/08/25 03/15/25 Rx tabs pantoprazole 40 mg tablet,delayed 40 mg PO DAILY 03/13 Unknown History release Allergy/AdvReac Type Severity Reaction Status Date / Time bupropion HCl (From Allergy SEIZURES Verified 03/15/25 11:50 Wellbutrin) codeine Allergy Rash Verified 03/15/25 11:50 Family History Mother Diabetes Father Cancer HX [...] at home: Yes ROS Constitutional Constitutional: Denies fatigue, fever(s), poor appetite, weight gain or weight loss Gastrointestinal Gastrointestinal: Denies belching, bloating, change in bowel habits, change in stool character, chewing difficulty, coffee ground emesis, constipation, cramping, diarrhea, dyspepsia, dysphagia, earlysatiety, excessive flatus, fecalincontinence, heartburn, hematemesis, hematochezia, hemorrhoids, loose stools, melena, nausea, odynophagia, rectal bleeding, tenesmus, vomiting or weight changes Vital Signs Vital Signs Vital Signs: 03/15/25 11:50 03/15/25 11:50 Temperature 98.1 F Temperature Source Temporal Pulse Rate 60 Respiratory Rate 16 Respiratory Pattern Normal Blood Pressure 112/57 L Blood Pressure Mean 75 Blood Pressure Source Monitor Blood Pressure Position Semi-Fowlers Blood Pressure Location Right Arm Pulse Ox 97 Oxygen Delivery Method Room Air Weight Weight: 183 lb 6.793 oz Body Mass Index (BMI) 33.5 Physical Exam Const alert, oriented x3, no apparent distress and healthy appearing General Appearance: cooperative GI normal to inspection, nondistended, normoactive bowel sounds, soft to palpation,non-tender and non-distended Percussion: normal to percussion Rectal Exam: deferred Assessment & Plan Assessment/Plan (1) Hepatitis C, chronic: QUALIFIERS: Hepatic coma status: without hepatic coma Qualified Code(s): B18.2 - Chronic viral hepatitis C (2) Cirrhosis of liver: QUALIFIERS: Hepatic cirrhosis type: unspecified hepatic cirrhosis Ascites presence: with ascites Qualified Code(s): K74.60 - Unspecified cirrhosis of liver; R18.8 - Other ascites PLAN: Assessment and Plan Assessment and Plan (1) Cirrhosis of liver: Status: Chronic Qualifiers: Hepatic cirrhosis type: unspecified hepatic cirrhosis Ascites presence:with ascites Qualified Code(s): K74.60 - Unspecified cirrhosis of liver; R18.8 - Other ascites Plan: Patient has HCV related, nonalcoholic fatty liver cirrhosis decompensated with ascites requiring multiple recurrent paracentesis, hepatic encephalopathy, thrombocytopenia and esophageal varices suggestive of portal hypertension MELD sodium score 15 from labs 01/17/2025 done in [facility] Continue diuretic furosemide 40 mg daily spironolactone 100 mg daily. Continue lactulose and Xifaxan Patient had multiple CT scans show cirrhotic changes, recannulized periumbilicalvein, distal esophageal varices, moderate splenomegaly GB wall thickening but itwas not triple phase. AFP elevated 11.9 on 04/13/2024. CA 19-[address] triple phase ordered to rule out HCC. Patient stated she has furosemide and spironolactone. Xifaxan refilled. Scheduled paracentesis and EGD. Comprehensive labs ordered. Follow-up in 3 (2) Hepatitis C, chronic: Status: Chronic Qualifiers: Hepatic coma status: without hepatic coma Qualified Code(s): B18.2 - Chronic viral hepatitis C Plan: HCVRNA quantitative ordered. Last HCV antibody negative/reactive 03/15/25 1206 Cosigner Signature (if applicable): CC: Marcelina Foster DO; Eyad [facility] CENTRIFUGAL CASTING MACHINE OPERATOR-C Beam~ Signed [facility]06-20-2025 [facility]06-12-2025 Radiology Diagnostic study note [facility] Imaging Services [address] [place] [address] Abdomen Limited MR#: [id number] Acct: [id number] Name: CAROLINA HIGHTOWER Rep #: [id number] : 1975 F 49 From: Hernesto Burnett MD PCP: Dr. Son Adams MD Status: REG CLI Study:Abdomen Limited Date of Exam: 02/24 11/20 Exam# [id number] Ordering Dr: Senait Quintero MD PROCEDURE: ABDOMEN LIMITED 03/07/2025 REASON FOR EXAM: Ascites survey. TECHNIQUE: Complete abdominal ultrasound oreilly-scale images with color doppler. PATIENT PREPARATION: Per protocol COMPARISON: None FINDINGS: The 4 quadrants were assessed for possible ascites. Small amount of ascites is seen in the right upper quadrant. Not enough fluid for safe paracentesis. US/Abdomen Limited IMPRESSION: Not enough ascitic fluid for safe paracentesis. Reading Location: [place] [address] CC: Dr. Son Adams MD; Dr. Shon Quintero MD ~ Bilingual Patient Support Caseworker: Signed [facility]06-03-2025 Discharge summary [facility] Medical Records Department [address] [place] [address] Emergency Department Summary 02/26/25 MR#: [id number] Acct: [id number] Name: CAROLINA HIGHTOWER Rep #:[id number] : 1975 49 From: Brokc girard DO PCP: RADHA VictoriaC Status:REG E R Location: ED HPI History of Present Illness Chief Complaint: Nosebleed PFSH PFS Medical History Decompensated cirrhosis Abdominal ascites Redness [...] Time bupropion HCl (From Allergy SEIZURES Verified 02/26/25 20:37 Wellbutrin) codeine Allergy Rash Verified 02/26/25 20:37 Family History Mother Diabetes Father Cancer HX [...] Yes EXAM Physical Exam Const Vital Signs: 02/26/25 20:33 02/26/25 21:40 Temperature 97.9 F 97.9 F Temperature Source Oral Pulse Rate 68 64 Respiratory Rate 14 18 Blood Pressure 121/60 H 135/85 H Blood Pressure Mean 80 101 Pulse Ox 100 99 Oxygen Delivery Method Room Air Discharge Plan Triage Chief Complaint: Nosebleed ED Provider: Brock Ruiz Dx/Rx/DC Orders Prescriptions: No Action trazodone 50 mg tablet 50 [...] 875 mg PO Q12H Qty: 20 0RF ondansetron 8 mg tablet,disintegrating 8 mg PO Q8H PRN (Reason: nausea and vomiting) Qty: 20 0RF oxycodone 5 mg tablet 5 mg PO Q6H PRN (Reason: pain) 4 Days Qty: 15 0RF lactulose 10 gram/15 mL solution 10 g PO TID PRN (Reason: stomach upset) Qty: 3000 0RF furosemide [Lasix] 40 mg tablet 40 mg PO DAILY Qty: 30 0RF Rx Instructions: start on 04/14/24 Primary Care Provider: Tresa Sandoval Referrals: Tresa Sandoval NP-C [Primary Care Provider] - Print Language: Czech What to do if you have Problems For any increased pain, shortness of breath, bleeding, nausea or vomiting, chestpain, or any unexpected problems, contact your Primary Care Provider. Call [facility] ([phone]) or report tothe closest Emergency Room. Call 911 if necessary. 02/26/252155 Cosigner Signature (if applicable): CC: CONCHIS Sandoval ~ Signed [facility]06-03-2025 Discharge summary Author Brock Ruiz [facility] Note Date/Time February 26, 2025 10:[address] [facility] Medical Records Department [address] [place] [address] Emergency Department Summary 02/26/25 MR#: [id number] Acct: [id number] Name: CAROLINA HIGHTOWER Rep #:[id number] : 1975 49 From: Brock girard DO PCP: RADHA VictoriaC Status:REG E R Location: ED HPI History of Present Illness Chief Complaint: [facility]ose[facility] Medical History Decompensated cirrhosis Abdominal ascites Redness [...] Time bupropion HCl (From Allergy SEIZURES Verified 02/26/25 20:37 Wellbutrin) codeine Allergy Rash Verified 02/26/25 20:37 Family History Mother Diabetes Father Cancer HX [...] Yes EXAM Physical Exam Const Vital Signs: 02/26/25 20:33 02/26/25 21:40 Temperature 97.9 F 97.9 F Temperature Source Oral Pulse Rate 68 64 Respiratory Rate 14 18 Blood Pressure 121/60 H 135/85 H Blood Pressure Mean 80 101 Pulse Ox 100 99 Oxygen Delivery Method Room Air Discharge Plan Triage Chief Complaint: Nosebleed ED Provider: Brock Ruiz Dx/Rx/DC Orders Prescriptions: No Action trazodone 50 mg tablet 50 [...] 875 mg PO Q12H Qty: 20 0RF ondansetron 8 mg tablet,disintegrating 8 mg PO Q8H PRN (Reason: nausea and vomiting) Qty: 20 0RF oxycodone 5 mg tablet 5 mg PO Q6H PRN (Reason: pain) 4 Days Qty: 15 0RF lactulose 10 gram/15 mL solution 10 g PO TID PRN (Reason: stomach upset) Qty: 3000 0RF furosemide [Lasix] 40 mg tablet 40 mg PO DAILY Qty: 30 0RF Rx Instructions: start on 04/14/24 Primary Care Provider: Tresa Sandoval Referrals: Tresa Sandoval NP-C [Primary Care Provider] - Print Language: Czech What to do if you have Problems For any increased pain, shortness of breath, bleeding, nausea or vomiting, chestpain, or any unexpected problems, contact your Primary Care Provider. Call [facility] ([phone]) or report to the closest Emergency Room. Call 911 if necessary. 02/26/25 4689 <Electronically signed by Brock Ruiz DO> Cosigner Signature (if applicable): CC: CONCHIS Sandoval ~ Signed [facility] Work Phone: 1(776) 905-440705-30-2025 Radiology Diagnostic study note [facility] Imaging Services [address] [place] [address] Chest PA and Lateral MR#: [id number] Acct: [id number] Name: CAROLINA HIGHTOWER Rep #: [id number] : 1975 F 49 From: Miquel Gu MD PCP: RADHA VictoriaC Status: REG E R Study:Chest PA and Lateral Date of Exam: 02/21/25 Exam# [id number] Ordering Dr: Pedrito Rosario DO PROCEDURE: CHEST [...] No evidence of acute process. Reading Location: [facility] CC: CENTRIFUGAL CASTING MACHINE OPERATOR-C Tresa Sandoval; Dr. Pedrito Rosario, ~ Bilingual Patient Support Caseworker: Signed [facility]05-30-2025 Radiology Diagnostic study note [facility] Imaging Services [address] [facility] [place] [address] Abdomen/Pelvis without Cont MR#: [id number] Acct: [id number] Name: CAROLINA HIGHTOWER Rep #: [id number] : 1975 F 49 From: iMquel Gu MD PCP: RADHA VictoriaC Status: REG E R Study:Abdomen/Pelvis without Cont Date of Exa m: 02/21/25 Exam# [id number] Ordering Dr: Pedrito Rosario DO PROCEDURE: ABDOMEN/PELVIS [...] stigmata of portal hypertension with previously noted recannulationof the paraumbilical vein on prior contrast-enhanced study. [...] stigmata of portal hypertension with previously noted recannulationof the paraumbilical vein on prior contrast-enhanced study. Overall the amount of abdominopelvic free fluid, ascites is mildly increased nowgreatest area at the anterior upper pelvis axial 138 and coronal 61 for example. The amount of mesenteric and omental congested stranding appearancealso appears increased. Anasarca now present. Moderate colonic stool. Mild prominence of the terminal ileum is nonspecific in the setting of liver disease, can not exclude an inflammatory/infectious process. Reading Location: [facility] CC: CENTRIFUGAL CASTING MACHINE OPERATOR-C Tresa Sandoval; Dr. Pedrito Rosario, DO ~ Bilingual Patient Support Caseworker: Signed [facility]05-16-[address] [facility] Medical Records Department [address] [place] [address] Emergency Department Summary 02/08/25 MR#: [id number] Acct: [id number] Name: CAROLINA HIGHTOWER Rep #:[id number] : 1975 49 From: Chris Ramos MD PCP: CONCHIS Victoria Status:REG E R Location: ED HPI History [...] as well as her PCP at the [facility], she has had a referral put in [...] here to the ER according to her. [facility] Medical History Decompensated cirrhosis Abdominal ascites Redness [...] information. They also were concerned about the patient'summer, but apparently her primary care provider "was uncomfortable prescribing her pain medication because of her liver." Patient states she has been on gabapentin and taking no more than 2 Tylenol tablets per day, because of her liver. Given all of that, case management referred her to Dr. Garay with pain management but she has not had that appointment yet. She had been [facility] and was transferred to [place] because they thought that she only had [...] a matter fact she had repeat blood workyesterday and I reviewed that as well, apparently [...] this time. I also did check an [place] OARRS report, she has rare prescriptions for antibiotics and none of them have been recent. History & Record Review Additional record(s) reviewed:: Prior ED visit Management Discussion w/another healthcare provider: nursing home social worker/Case management Discharge Plan Triage Chief Complaint: Abd Pain ED Provider: Chris Ramos Dx/Rx/DC Orders Clinical Impression: Cirrhosis of liver, [...] Primary Care Provider: Tresa Sandoval Referrals: Tresa Sandoval NP-C [Primary Care Provider] - (If you have further issues before seeing palliativecare or pain management) Print Language: Czech Disposition Disposition: Home, Self Care What to do if you have Problems For any increased pain, shortness of breath, bleeding, nausea or vomiting, chestpain, or any unexpected problems, contact your Primary Care Provider. Call [facility] ([phone]) or report tothe closest Emergency Room. Call 911 if necessary. 02/08/25 1239 Cosigner Signature (if applicable): CC: CONCHIS Sandoval ~ Signed [facility]05-12-2025 Radiology Diagnostic study note [facility] Imaging Services [address] [place], [place] [address] Abdomen/Pelvis W IV Cont ONLY MR#: [id number] Acct: [id number] Name: CAROLINA HIGHTOWER Rep #: [id number] : 1975 F 49 From: Hernesto Burnett MD [facility] Status: REG ER Study:Abdomen/Pelvis W IV Cont ONLY Date of E xam: 02/04/25 Exam# [id number] Ordering Dr: Michi Cope DO PROCEDURE: ABDOMEN/PELVIS [...] colitis of the right hemicolon. Reading Location: [id number] CC: Dr. Michi Cope, DO; [facility] ~ Bilingual Patient Support Caseworker: Signed [facility]04-30-2025 Evaluation note* Diagnosis Onset Date Resolution Status Admit Date Cirrhosis of liver chronic January 23, 2025 2:48pm Hepatitis C, chronic chronic Apri l 2024 2:48pm [facility] Work Phone: 1(305) 474-433704-30-2025 Evaluation note* Diagnosis Onset Date Resolution Status Admit Date Cirrhosis of liver chronic January 23, 2025 2:48pm Hepatitis C, chronic chronic Apri l 2024 2:48pm Cirrhosis of liver chronic February 252024 11:15am Hepatitis C, chronic chronic March 15, 2025 11:15am [facility] Work Phone: 1(418) 235-452204-24-2025 Hospital Discharge instructions Patient Education 01/17/2025 17:02:21 [...] groups for people with liver disease, contact: [employer], www.liverfoundation.org, [employer], www.hepfi.org, When to seek medical advice Call your healthcare provider right away if you have any of the following: Rapid weight gain with increased size of your belly (abdomen) or leg swelling Yellow color of your skin or eyes (jaundice) gets worse Excess bleeding from cuts or injuries 6951-9[address] [employer] [place] [address]. All rights reserved. This information is not intended as a substitute for professional medical care. Always follow yourhealthcare professional's instructions. Follow Up Care 01/17/2025 12:28:54 With:[facility] ([facility]) Address: [address] [place] [address] [phone] Business (1) When:2-4 days With:Go to emergency room if symptoms worsen Address: When: Unknown With:FRIENDMARCELINA DO Address: [address] [facility] [place] [address] [phone] When:2-4 days [facility] 04-24-2025 Emergency department Discharge summary Discharge [...] Schedule the Following Appointments Follow Up with [facility] ([facility]) When:Within 2-4 days Where:[address] [place] [address] [phone] Business (1) Follow Up with Go to emergency room if symptoms worsen Follow Up with FRIEND, MARCELINA DO When:Within 2-4 days Where:[address] [facility] [place] [address] [phone] Allergies Wellbutrin aspirin Hives codeine Hives Medications Please ask your primary doctor or pharmacist before taking any other medication not listed, including over the counter drugs, herbal medications, vitamins and or supplements as they may interact withur home medications. What How Much When Instructions [...] groups for people with liver disease, contact: [employer], www.liverfoundation.org, [employer], www.hepfi.org, When to seek medical advice Call your healthcare provider right away if you have any of the following: Rapid weight gain with increased size of your belly (abdomen) or leg swelling Yellow color of your skin or eyes (jaundice) gets worse Excess bleeding from cuts or injuries 7686-9801 The [employer] [address] [place] [address]. All rights reserved. This information is not intended as a substitute for professional medical care. Always follow yourhealthcare professional's instructions. Additional Information VACCINATE! IT SAVES LIVES! Members of the community who have not yet received the COVID-19 vaccine and would like to receive it can visit one of [facility] vaccine clinics. There are many vaccine clinic locations within the [facility]. For locations and available times, please visit www.gettheshot.coronavirus.[place].gov/. It is important to note that some COVID mobile vaccine clinics are held outdoors and may be canceled in rainy or stormy conditions. To learn more about pediatric vaccinations (ages 5-11), we invite you to visit the [facility] webpage. https://www.[facility].org/pages/4167-Odhrn-Itccjvuzohs-Aemckixezv-Uzrwa-Qvw stions.htmlTo learn more about the COVID-19 vaccine, we invite you to visit the CDC website for a list of frequently asked questions. https://www.cdc.gov/coronavirus/2019-ncov/vaccines/faq.html [facility] Patient Portal Access Instructions: Stay connected with your healthcare team and access your personal medical information anytime with the [facility] Patient Portal. If you would like a full copy of your medical records please contact the [facility] Medical Records Department Tuesday through Tuesday between 8a.m. and 4:30p.m. Please follow the directions below to access the portal: 1.Access the email account you provided upon registration to the hospital.2.Look for an invitation email from [facility].3.Open the email and access the invitation link: Accept Invitation to [facility]4.Fill in the required dhillon to create your account. Sign into [email or web address] with your username and password that you [...] you will allow to register on the [employer] Patient Portal for access to your information. You can also access the [employer] Patient Portal on the Factor 14. Simply click on "Health Records" under "pSiFlow TechnologyDa[employer]" and then click on the Ipsum logo. HOW TO SAFELY DISPOSE OF PRESCRIPTION [...] Call your local pharmacy or go to [email or web address] [email or web address]/[email or web address] to find one close to you.3.Make use of household items: Use cat litter or old coffee grounds to dispose medications if other options arenot available. Mix your drugs with these household products, seal them in an airtight container andthrow it into the garbage. Call [facility]: [phone] to be sure your drugs can be [...] been reviewed and explained to me and I,CAROLINA HIGHTOWER understand my current condition and have read and understand these discharge instructions. I have received a written copy of the plan/instructions. If I have questions, I am aware that I should contact my doctor. 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 Signature: Date/Time: Relationship to Patient: Witness Name/Signature: Date/Time: [facility] [id number] Note* Exam Date Time Procedure Performing Provider Status 01/17/25 5:08 PM EKG (ED) - CV MD CEE, BROOKLYN DOOLEY; Auth (Verified) ECG Final Report SINUS RHYTHM Electronic Signature: MD CEE, BROOKLYN DOOLEY 01/17/2025 17:53:13 [facility] [id number] Note* Exam Date Time Procedure Performing Provider Status 01/17/25 3:15 PM XR Chest 1 View DAILY HAYES MD; Auth (Verified) [id number] ORIGINAL EXAMINATION: ONE XRAY VIEW OF THE [...] Date: 01/17/2025 3:37:07 PM Ordering Provider: ARIANNE [facility]03-20-2025 Note* Care Plan Note - Yumiko GardinerGERTRUDE - 12/13/2024 4:27 PM EDT Problem: Falls, [...] Adequate nutritional intake Description: Interventions: -Consult to financial services officer -Intake and output measurement -Calorie count if [...] use cessation methods Outcome: Adequate for Discharge [facility]03-20-2025 Miscellaneous Notes* Care Plan Note - Yumiko [...] Adequate nutritional intake Description: Interventions: -Consult to financial services officer -Intake and output measurement -Calorie count if [...] AM EDT PT treatment # 1 Room: [id number] Precautions: Fall risk/Unsteadiness, Generalized weakness Weight Bearing [...] per patient tolerance and collaborate with oncoming PT/assistant professor nurse education for handoff care in preparation for D/C. [...] Totals Intake/Output 12/12/24 0700 - 12/13/24 0659 [phone] Total Intake P.O. 375 400 775 I.V. [...] Abnormalities No Labs No results found for: "FUNCTIONAL", "PLTAGGREG" Lab Results Component Value Date RBC 3.88 [...] Adequate nutritional intake Description: Interventions: -Consult to financial services officer -Intake and output measurement -Calorie count if [...] Intake/Output 12/11/24 0700 - 12/12/24 0659 12/12/24 0700 - 12/13/24 658 Total Total Intake P.O. 600 0 600 [...] Abnormalities N/A Labs No results found for: "FUNCTIONAL", "PLTAGGREG" Lab Results Component Value Date RBC 3.88 [...] Adequate nutritional intake Description: Interventions: -Consult to financial services officer -Intake and output measurement -Calorie count if [...] Adequate nutritional intake Description: Interventions: -Consult to financial services officer -Intake and output measurement -Calorie count if [...] Totals Intake/Output 12/11/24 0700 - 12/12/24 0659 [phone] 3654-1215 Total Intake P.O. 600 0 600 I.V. [...] Abnormalities No Labs No results found for: "FUNCTIONAL", "PLTAGGREG" Lab Results Component Value Date RBC 3.62 [...] Next of Kin/Decision Maker: Vannesa Hightower (Daughter) [phone] (H) Comments: If there comes a time the patient is unable to make their own medical decisions, the above named is the closest living relative for decision making purposes. Mary NAM Social Work * Care Plan Note - Mary Haynes BSW - 12/11/2024 10:38 AM EDT SW DISCHARGE/TREATMENT PLAN: 12/11/24 Pt to [facility] to [facility] [phone] 1. Anticipate DC to home once medically [...] Adequate nutritional intake Description: Interventions: -Consult to financial services officer -Intake and output measurement -Calorie count if [...] Totals Intake/Output 12/10/24 0700 - 12/11/24 0659 [phone] [phone] Total Intake P.O. 350 360 710 I.V. [...] Abnormalities No Labs No results found for: "FUNCTIONAL", "PLTAGGREG" Lab Results Component Value Date RBC 3.77 [...] Adequate nutritional intake Description: Interventions: -Consult to financial services officer -Intake and output measurement -Calorie count if [...] to patient conditions and/or care this shift: N\\o Vital Signs Weight: 84.5 kg (186 lb [...] (Not Admitted) 12/10/24 0700 - 12/11/24 0659 [phone] Total [phone] Total Intake P.O. -- -- -- 350 [...] Abnormalities No Labs No results found for: "FUNCTIONAL", "PLTAGGREG" Lab Results Component Value Date RBC 3.77 [...] Adequate nutritional intake Description: Interventions: -Consult to financial services officer -Intake and output measurement -Calorie count if [...] cessation methods Outcome: Ongoing documented in this [facility]03-20-2025 Note* Care Plan Note - Yessenia Sarabia - 12/13/2024 10:38 AM EDT PT treatment # 1 Room: [facility] Precautions: Fall risk/Unsteadiness, Generalized weakness Weight [...] per patient tolerance and collaborate with oncoming PT/assistant professor nurse education for handoff care in preparation for D/C. Treatment time: therapeutic exercises=8 minutes / gait training=15 minutes [facility]03-20-2025 Note* End of Shift Note - Liudmila [...] Totals Intake/Output 12/12/24 0700 - 12/13/24 [phone] Total Intake P.O. 375 400 775 I.V. [...] Abnormalities No Labs No results found for: "FUNCTIONAL", "PLTAGGREG" Lab Results Component Value Date RBC 3.88 [...] Discharge Date Education Provided Other (Comment) none [facility]03-20-2025 Note* Care Plan Note - Liudmila William [...] Adequate nutritional intake Description: Interventions: -Consult to financial services officer -Intake and output measurement -Calorie count if [...] Education, tobacco use cessation methods Outcome: Ongoing [facility]03-19-2025 Note* Handoff Documentation - Yumiko Gardiner LPN - 12/12/2024 7:13 PM EDT Handoff report given to GERTRUDE Grijalva. Vitals, labs, skin integrity and events through shift discussed. All questions/concerns addressed. 12 hour chart check complete. Bedside handoff complete. Patientresting in bed, denies any needs. Call light within reach and encouraged. [facility]03-19-2025 Note* End of Shift Note - Yumiko [...] 12/12/24 0659 12/12/24 07 - 12/13/24 0659 [phone] Total 9068-2534 6705-1517 Total Intake P.O. 600 0 600 375 [...] Abnormalities N/A Labs No results found for: "FUNCTIONAL", "PLTAGGREG" Lab Results Component Value Date RBC 3.88 [...] Planning Home Expected Discharge Date Education Provided [facility]03-19-2025 Note* Care Plan Note - Yumiko Gardiner [...] Adequate nutritional intake Description: Interventions: -Consult to financial services officer -Intake and output measurement -Calorie count if [...] Education, tobacco use cessation methods Outcome: Ongoing [facility]03-19-2025 History of Present illness Narrative* Isabella Ch MD - 12/12/2024 2:42 PM EDT [facility] MEDICINE PROGRESS NOTE Patient: Carolina Hightower Room: [address] [place] [address] Admit Date: 12/10/2024 Hospital Day: LOS: 0 [...] source Skin, resp. rate 18, height 5' 2" (157.5 cm), weight 82.9 kg (182 lb [...] AST 112 12/11/2024 0438 ALTSGPT 65 12/11/2024 043 ALBUMIN 2.6 12/11/2024 0438 AGRATIO 0.8 12/11/2024 [...] 12/11/2024 The patient was seen independently by CENTRIFUGAL CASTING MACHINE OPERATOR however the patient's plan/recommendations were discussed with me and approved. The patient was not evaluated by me. Signed: Katharina Welsh M.D., MD 12/12/2024 5:45 PM * Isabella Ch MD - 12/11/2024 4:26 PM EDT HOSPITAL MEDICINE PROGRESS NOTE Patient: Carolina Hightower [place] [facility] Admit Date: 12/10/2024 Hospital Day: LOS: [...] source Oral, resp. rate 16, height 5' 2" (157.5 cm), weight 82.9 kg (182 lb [...] Will monitor closely. documented in this [facility]03-19-2025 Consult note* Tomer Kilpatrick, PT - 12/12/2024 2:23 PM EDT PT Functional Evaluation Patient: Carolina Hightower Admitted: 12/10/2024 1:01 AM Height: 5' 2" (157.5 cm) Weight: 82.9 kg (182 lb 12.2 oz) BMI (Calculated): 33.4 Age: 49 y.o. LOS: 0 days Room # - [id number] General Information Current Hospital Problem List - Principal Problem: Cirrhosis of liver with ascites Active Problems: Abdominal pain PMH - Past Medical History: Diagnosis Date Ascites Bipolar disorder Chronic hepatitis C virus infection Cirrhosis Kidney stone PSH - Past Surgical History: Procedure Laterality Date HX EGJ N/A 09/07/2024 EGD /C BIOPSY performed by Katharina Welsh MD [place] [facility] HX EGJ 09/07/2024 EGD /C BAND LIGATION VARICES performed by Katharina Welsh MD at [facility] HX LIVER BIOPSY HX POST STERILIZATION PARACENTESIS N/A 07/02/2024 Paracentesis performed by Max Rico MD at [facility] PARACENTESIS N/A 07/09/2024 Paracentesis performed by Ginger Milton MD at [facility] PARACENTESIS N/A 07/19/2024 Paracentesis performed by Minda Gómez MD at [facility] PARACENTESIS N/A 07/26/2024 Paracentesis performed by Max Rico MD at [facility] PARACENTESIS N/A 08/02/2024 Paracentesis performed by Ginger Milton MD at [facility] PARACENTESIS N/A 08/09/2024 Paracentesis performed by Minda Gómez MD at [facility] PARACENTESIS N/A 08/16/2024 Paracentesis performed by Ginger Milton MD at [facility] PARACENTESIS N/A 08/22/2024 Paracentesis performed by Max Rico MD at [facility] PARACENTESIS N/A 08/30/2024 Paracentesis performed by Minda Gómez MD at [facility] PARACENTESIS N/A 09/04/2024 Paracentesis performed by Ginger Milton MD at [facility] PARACENTESIS N/A 09/13/2024 Paracentesis performed by Max Rico MD at [facility] PARACENTESIS N/A 09/20/2024 Paracentesis performed by Minda Gómez MD at [facility] PARACENTESIS N/A 09/27/2024 Paracentesis performed by Ginger Milton MD at [facility] PARACENTESIS N/A 10/03/2024 Paracentesis performed by Max Rico MD at [facility] PARACENTESIS N/A 10/18/2024 Paracentesis performed by Ginger Milton MD at [facility] PARACENTESIS N/A 11/28/2024 Paracentesis performed by Minda Gómez MD at [facility] PARACENTESIS N/A 12/06/2024 Paracentesis performed by Max Rico MD at [facility] PARACENTESIS N/A 12/10/2024 Paracentesis performed by Ginger Milton MD at [facility] ULTRASOUND GUIDANCE N/A 07/02/2024 Ultrasound Guidance performed by Max Rico MD at [facility] ULTRASOUND GUIDANCE N/A 07/09/2024 Ultrasound Guidance performed by Ginger Milton MD at [facility] ULTRASOUND GUIDANCE N/A 07/19/2024 Ultrasound Guidance performed by Minda Gómez MD at [facility] ULTRASOUND GUIDANCE N/A 07/26/2024 Ultrasound Guidance performed by Max Rico MD at [facility] ULTRASOUND GUIDANCE N/A 08/02/2024 Ultrasound Guidance performed by Ginger Milton MD at [facility] ULTRASOUND GUIDANCE N/A 08/09/2024 Ultrasound Guidance performed by Minda Gómez MD at [facility] ULTRASOUND GUIDANCE N/A 08/16/2024 Ultrasound Guidance performed by Ginger Milton MD at [facility] ULTRASOUND GUIDANCE N/A 08/22/2024 Ultrasound Guidance performed by Max Rico MD at [facility] ULTRASOUND GUIDANCE N/A 08/30/2024 Ultrasound Guidance performed by Minda Gómez MD at [facility] ULTRASOUND GUIDANCE N/A 09/04/2024 Ultrasound Guidance performed by Ginger Milton MD at [facility] ULTRASOUND GUIDANCE N/A 09/13/2024 Ultrasound Guidance performed by Max Rico MD at [facility] ULTRASOUND GUIDANCE N/A 09/20/2024 Ultrasound Guidance performed by Minda Gómez MD at [facility] ULTRASOUND GUIDANCE N/A 09/27/2024 Ultrasound Guidance performed by Ginger Milton MD at [facility] ULTRASOUND GUIDANCE N/A 10/03/2024 Ultrasound Guidance performed by Max Rico MD at [facility] ULTRASOUND GUIDANCE N/A 10/18/2024 Ultrasound Guidance performed by Ginger Milton MD at [facility] ULTRASOUND GUIDANCE N/A 10/30/2024 Ultrasound Guidance performed by Minda Gómez MD at [facility] ULTRASOUND GUIDANCE N/A 11/28/2024 Ultrasound Guidance performed by Minda Gómez MD at [facility] ULTRASOUND GUIDANCE N/A 12/06/2024 Ultrasound Guidance performed by Max Rico MD at [facility] ULTRASOUND GUIDANCE N/A 12/10/2024 Ultrasound Guidance performed by Ginger Milton MD at [facility] Attending Physicians - Isabella Ch MD PT Order - Orders Placed This Encounter Procedures PT Eval and Treat -Debility - Standing Status: Standing Number of Occurrences: 1 Order Specific Question: Reason for PT Eval Answer: Debility Surgical Intervention - Paracentesis on 12/10/24. [place] [address] Radiology PATIENT NAME: Carolina Hightower MR#: [id number] PROCEDURE DATE: 12/10/2024 ROOM#: [id number] ORDERING PHYS: Miranda Mootz PROCEDURE: Right upper [...] Zimmer MD jp TD: 12/10/2024 JOB #: [id number] Radiology Page 1 of 1 COPY Bilingual Patient Support Caseworker: Read by: Saud Pierre MD [facility] [address] [place] [address] Radiology PATIENT NAME: Carolina Hightower MR#: [id number] PROCEDURE DATE: 12/11/2024 ROOM#: [id number] ORDERING PHYS: Isabella Ch Clinical history: Low [...] Parmar MD dd TD: 12/11/2024 JOB #: [id number] Radiology Page 1 of 1 COPY Bilingual Patient Support Caseworker: Read by: [place] [address] Radiology PATIENT NAME: Carolina Hightower MR#: [id number] PROCEDURE DATE: 12/12/2024 ROOM#: [facility] ORDERING PHYS: Lyssa Farrell PROCEDURE: MRI ABDOMEN [...] Zimmer MD arlen TD: 12/12/2024 JOB #: [id number] Radiology Page 1 of 1 COPY Bilingual Patient Support Caseworker: Read by: Saud Pierre MD Diagnostic/Lab Tests [...] patient states that she lives at the [facility] in [place]. She states that she was independent with [...] limitations &/or participation restrictions Typical time spent [id number] with patient 59221 Low 0 1-2 elements 20 minutes 40546 Moderate 1-2 3+ 30 minutes 34621 High 3+ 4+ 45 minutes 29723 Re-evaluation Change in status Change in status 20 minutes Evaluation Time: 10 minutes Physical Therapy Evaluation Complexity & Code: Low / 62513 Standardized Testing: MMT and ROM testing, gait, [...] Life, and Community, Social and Civic Life [facility]03-19-2025 Consult note* Tomer Kilpatrick, PT - 12/12/2024 2:23 PM EDT PT Functional Evaluation Patient: Carolina Hightower Admitted: 12/10/2024 1:01 AM Height: 5' 2" (157.5 cm) Weight: 82.9 kg (182 lb 12.2 oz) BMI (Calculated): 33.4 Age: 49 y.o. LOS: 0 days Room # - [id number]/[id number] General Information Current Hospital Problem List - Principal Problem: Cirrhosis of liver with ascites Active Problems: Abdominal pain PMH - Past Medical History: Diagnosis Date Ascites Bipolar disorder Chronic hepatitis C virus infection Cirrhosis Kidney stone PSH - Past Surgical History: Procedure Laterality Date HX EGJ N/A 09/07/2024 EGD /C BIOPSY performed by Katharina Welsh MD at [facility] HX EGJ 09/07/2024 EGD /C BAND LIGATION VARICES performed by Katharina Welsh MD at [facility] HX LIVER BIOPSY HX POST STERILIZATION PARACENTESIS N/A 07/02/2024 Paracentesis performed by Max Rico MD at [facility] PARACENTESIS N/A 07/09/2024 Paracentesis performed by Ginger Milton MD at [facility] PARACENTESIS N/A 07/19/2024 Paracentesis performed by Minda Gómez MD at [facility] PARACENTESIS N/A 07/26/2024 Paracentesis performed by Max Rico MD at [facility] PARACENTESIS N/A 08/02/2024 Paracentesis performed by Ginger Milton MD at [facility] PARACENTESIS N/A 08/09/2024 Paracentesis performed by Minda Gómez MD at [facility] PARACENTESIS N/A 08/16/2024 Paracentesis performed by Ginger Milton MD at [facility] PARACENTESIS N/A 08/22/2024 Paracentesis performed by Max Rico MD at [facility] PARACENTESIS N/A 08/30/2024 Paracentesis performed by Minda Gómez MD at [facility] PARACENTESIS N/A 09/04/2024 Paracentesis performed by Ginger Milton MD at [facility] PARACENTESIS N/A 09/13/2024 Paracentesis performed by Max Rico MD at [facility] PARACENTESIS N/A 09/20/2024 Paracentesis performed by Minda Gómez MD at [facility] PARACENTESIS N/A 09/27/2024 Paracentesis performed by Ginger Milton MD at [facility] PARACENTESIS N/A 10/03/2024 Paracentesis performed by Max Rico MD at [facility] PARACENTESIS N/A 10/18/2024 Paracentesis performed by Ginger Milton MD at [facility] PARACENTESIS N/A 11/28/2024 Paracentesis performed by Minda Gómez MD at [facility] PARACENTESIS N/A 12/06/2024 Paracentesis performed by Max Rico MD at [facility] PARACENTESIS N/A 12/10/2024 Paracentesis performed by Ginger Milton MD at [facility] ULTRASOUND GUIDANCE N/A 07/02/2024 Ultrasound Guidance performed by Max Rico MD at [facility] ULTRASOUND GUIDANCE N/A 07/09/2024 Ultrasound Guidance performed by Ginger Milton MD at [facility] ULTRASOUND GUIDANCE N/A 07/19/2024 Ultrasound Guidance performed by Minda Gómez MD at [facility] ULTRASOUND GUIDANCE N/A 07/26/2024 Ultrasound Guidance performed by Max Rico MD at [facility] ULTRASOUND GUIDANCE N/A 08/02/2024 Ultrasound Guidance performed by Ginger Milton MD at [facility] ULTRASOUND GUIDANCE N/A 08/09/2024 Ultrasound Guidance performed by Minda Gómez MD at [facility] ULTRASOUND GUIDANCE N/A 08/16/2024 Ultrasound Guidance performed by Ginger Milton MD at [facility] ULTRASOUND GUIDANCE N/A 08/22/2024 Ultrasound Guidance performed by Max Rico MD at [facility] ULTRASOUND GUIDANCE N/A 08/30/2024 Ultrasound Guidance performed by Minda Gómez MD at [facility] ULTRASOUND GUIDANCE N/A 09/04/2024 Ultrasound Guidance performed by Ginger Milton MD at [facility] ULTRASOUND GUIDANCE N/A 09/13/2024 Ultrasound Guidance performed by Max Rico MD at [facility] ULTRASOUND GUIDANCE N/A 09/20/2024 Ultrasound Guidance performed by Minda Gómez MD at [facility] ULTRASOUND GUIDANCE N/A 09/27/2024 Ultrasound Guidance performed by Ginger Milton MD at [facility] ULTRASOUND GUIDANCE N/A 10/03/2024 Ultrasound Guidance performed by Max Rico MD at [facility] ULTRASOUND GUIDANCE N/A 10/18/2024 Ultrasound Guidance performed by Ginger Milton MD at [facility] ULTRASOUND GUIDANCE N/A 10/30/2024 Ultrasound Guidance performed by Minda Gómez MD at [facility] ULTRASOUND GUIDANCE N/A 11/28/2024 Ultrasound Guidance performed by Minda Gómez MD at [facility] ULTRASOUND GUIDANCE N/A 12/06/2024 Ultrasound Guidance performed by Max Rico MD at [facility] ULTRASOUND GUIDANCE N/A 12/10/2024 Ultrasound Guidance performed by Ginger Milton MD at [facility] Attending Physicians - Isabella Ch MD PT Order - Orders Placed This Encounter Procedures PT Eval and Treat -Debility - Standing Status: Standing Number of Occurrences: 1 Order Specific Question: Reason for PT Eval Answer: Debility Surgical Intervention - Paracentesis on 12/10/24. [place] [address] Radiology PATIENT NAME: Carolina Hightower MR#: [id number] PROCEDURE DATE: 12/10/2024 ROOM#: [id number] ORDERING PHYS: Miranda Marques PROCEDURE: Right upper [...] Zimmer MD jp TD: 12/10/2024 JOB #: [id number] Radiology Page 1 of 1 COPY Bilingual Patient Support Caseworker: Read by: Saud Pierre MD [facility] [address] [place] [address] Radiology PATIENT NAME: Carolina Hightower MR#: [id number] PROCEDURE DATE: 12/11/2024 ROOM#: [id number] ORDERING PHYS: Isabella Ch Clinical history: Low [...] Parmar MD dd TD: 12/11/2024 JOB #: [id number] Radiology Page 1 of 1 COPY Bilingual Patient Support Caseworker: Read by: [place] [address] Radiology PATIENT NAME: Carolina Hightower MR#: [id number] PROCEDURE DATE: 12/12/2024 ROOM#: [id number] ORDERING PHYS: Lyssa Farrell PROCEDURE: MRI ABDOMEN [...] Zimmer MD jp TD: 12/12/2024 JOB #: [id number] Radiology Page 1 of 1 COPY Bilingual Patient Support Caseworker: Read by: Saud Pierre MD Diagnostic/Lab Tests [...] patient states that she lives at the [facility]. She states that she was independent [...] limitations &/or participation restrictions Typical time spent [id number] with patient 33445 Low 0 1-2 elements 20 minutes 95139 Moderate 1-2 3+ 30 minutes 01215 High 3+ 4+ 45 minutes 20090 Re-evaluation Change in status Change in status 20 minutes Evaluation Time: 10 minutes Physical Therapy Evaluation Complexity & Code: Low / 41808 Standardized Testing: MMT and ROM testing, gait, [...] Social and Civic Life * Mary Haynes, GEOGRAPHICAL HISTORIAN - 12/11/2024 10:24 AM EDTAssociated Order(s): IP CONSULT TO SOCIAL WORK SOCIAL WORK ASSESSMENT DATE: 12/11/24 PATIENT NAME: Carolina Hightower MEDICAL UNIT: [id number] PURPOSE OF SOCIAL WORK INTERVENTION/REFERRAL: SW consulted for, "dcp" ASSESSMENT: Interview conducted with/Information obtained from: A review of the pt medical record, spoke with tx team, as well as discussion with patient at bedside. Identifying Information & Presenting Problem: Per H&P, "Patient is a 49 y.o. female with PMHx noted below, presenting via transfer from [facility] with c/o LLQ abdominal pain and lower back pain. She states the pain is "bubbling" and couldnot elaborate further, and it's been there for about a week, around the same time when she had her paracentesis on 12/06/24 at [facility]. Patient denies LANCE, fever, chill, nausea/vomiting, chest pain, shortness of breath, dizziness, palpitations, focal motor/sensory deficit, dysuria, or diarrhea. During [facility] w/u CAGE SUPERVISOR, the pt underwent a CT abd w/ contrast that showed cirrhosis, portal HTN, and moderate volume ascites. " Living Situation: Pt lives at the [facility]. Daily Functional Status CAGE SUPERVISOR: Patient is independent with ADL's. Support System: Family Medical Equipment: N/A Home Care Services (HH, Passport, Waiver, Private Caregivers, MOW etc) and Preferred Provider: Pt defers HH at this time. Community Services (mental health services, speciality clinics such as coumadin clinic, mental health services): [facility] [place] IDENTIFIED SOCIAL DETERMINATES OF HEALTH [...] (ADMIT) General Medicine Tod Son DO; Lambert Christie DO Ascites (Primary Dx); Amphetamine-type substance use [...] - 11/20/2024 ED (ELOPEMENT) Emergency Department Lambert Christie DO Viral syndrome (Primary Dx) 11/29/2024 Pre-admit Endoscopy Katharina Welsh MD 12/10/2024 ED to Hosp-Admission (Current) (ADMIT) Clinical Decision Unit 6 Isabella Ch MD; Krunal,Dalkeith F, DO Abdominal pain (Primary Dx); Ascites; Lower back pain ADVANCE DIRECTIVES/NEXT OF KIN IDENTIFICATION: Vannesa Hightower (Daughter) [phone] (H) No AD on file in the medical center. DISCUSSION & INTERVENTION: Treatment Team/Social Work Assessment of Needs and Disposition: Discussed dcp and possible needs. Patient & Family Perspective of Needs and Disposition: SW spoke with patient at bedside. Pt plans to return [facility] upon d/c. Pt defers HH at this time. No DME needed. Left voicemail with [facility] regarding transport. SW to follow. Discussion: SW educated patient on the role of the SW and that SW will continue to follow. SW informed patient that treatment options may vary based on the healthcare team recommendations and patient's progress.Patient voiced understanding. SW DISCHARGE/TREATMENT PLAN: 12/11/24 Pt to return to [facility], [place] [phone] 1. Anticipate DC to home once medically stable. 2. Pt defers HH 3. SW to follow. Mary NAM Social Work * Katharina Welsh MD - 12/10/2024 11:00 AM EDTAssociated Order(s): IP CONSULT TO GASTROENTEROLOGY GASTROENTEROLOGY CONSULT NOTE Miranda Marques 12/10/2024 Patient Name: Carolina Hightower : 1975 Medical Record: [id number] REQUESTING PHYSICIAN Isabella Ch MD PRIMARY CARE [...] BIOPSY performed by Katharina Welsh MD at [facility] HX EGJ 09/07/2024 EGD /C BAND LIGATION VARICES performed by Katharina Welsh MD at [facility] HX LIVER BIOPSY HX POST STERILIZATION PARACENTESIS N/A 07/02/2024 Paracentesis performed by Max Rico MD at [facility] PARACENTESIS N/A 07/09/2024 Paracentesis performed by Ginger Milton MD at [facility] PARACENTESIS N/A 07/19/2024 Paracentesis performed by Minda Gómez MD at [facility] PARACENTESIS N/A 07/26/2024 Paracentesis performed by Max Rico MD at [facility] PARACENTESIS N/A 08/02/2024 Paracentesis performed by Ginger Milton MD at [facility] PARACENTESIS N/A 08/09/2024 Paracentesis performed by Minda Gómez MD at [facility] PARACENTESIS N/A 08/16/2024 Paracentesis performed by Ginger Milton MD at [facility] PARACENTESIS N/A 08/22/2024 Paracentesis performed by Max Rico MD at [facility] PARACENTESIS N/A 08/30/2024 Paracentesis performed by Minda Gómez MD at [facility] PARACENTESIS N/A 09/04/2024 Paracentesis performed by Ginger Milton MD at [facility] PARACENTESIS N/A 09/13/2024 Paracentesis performed by Max Rico MD at [facility] PARACENTESIS N/A 09/20/2024 Paracentesis performed by Minda Gómez MD at [facility] PARACENTESIS N/A 09/27/2024 Paracentesis performed by Ginger Milton MD at [facility] PARACENTESIS N/A 10/03/2024 Paracentesis performed by Max Rico MD at [facility] PARACENTESIS N/A 10/18/2024 Paracentesis performed by Ginger Milton MD at [facility] PARACENTESIS N/A 11/28/2024 Paracentesis performed by Minda Gómez MD at [facility] PARACENTESIS N/A 12/06/2024 Paracentesis performed by Max Rico MD at [facility] PARACENTESIS N/A 12/10/2024 Paracentesis performed by Ginger Milton MD at [facility] ULTRASOUND GUIDANCE N/A 07/02/2024 Ultrasound Guidance performed by Max Rico MD at [facility] ULTRASOUND GUIDANCE N/A 07/09/2024 Ultrasound Guidance performed by Ginger Milton MD at [facility] ULTRASOUND GUIDANCE N/A 07/19/2024 Ultrasound Guidance performed by Minda Gómez MD at [facility] ULTRASOUND GUIDANCE N/A 07/26/2024 Ultrasound Guidance performed by Max Rico MD at [facility] ULTRASOUND GUIDANCE N/A 08/02/2024 Ultrasound Guidance performed by Ginger Milton MD at [facility] ULTRASOUND GUIDANCE N/A 08/09/2024 Ultrasound Guidance performed by Minda Gómez MD at [facility] ULTRASOUND GUIDANCE N/A 08/16/2024 Ultrasound Guidance performed by Ginger Milton MD at [facility] ULTRASOUND GUIDANCE N/A 08/22/2024 Ultrasound Guidance performed by Max Rico MD at [facility] ULTRASOUND GUIDANCE N/A 08/30/2024 Ultrasound Guidance performed by Minda Gómez MD at [facility] ULTRASOUND GUIDANCE N/A 09/04/2024 Ultrasound Guidance performed by Ginger Milton MD at [facility] ULTRASOUND GUIDANCE N/A 09/13/2024 Ultrasound Guidance performed by Max Rico MD at [facility] ULTRASOUND GUIDANCE N/A 09/20/2024 Ultrasound Guidance performed by Minda Gómez MD at [facility] ULTRASOUND GUIDANCE N/A 09/27/2024 Ultrasound Guidance performed by Ginger Milton MD at [facility] ULTRASOUND GUIDANCE N/A 10/03/2024 Ultrasound Guidance performed by Max Rico MD at [facility] ULTRASOUND GUIDANCE N/A 10/18/2024 Ultrasound Guidance performed by Ginger Milton MD at [facility] ULTRASOUND GUIDANCE N/A 10/30/2024 Ultrasound Guidance performed by Minda Gómez MD at [facility] ULTRASOUND GUIDANCE N/A 11/28/2024 Ultrasound Guidance performed by Minda Gómez MD at [facility] ULTRASOUND GUIDANCE N/A 12/06/2024 Ultrasound Guidance performed by Max Rico MD at [facility] ULTRASOUND GUIDANCE N/A 12/10/2024 Ultrasound Guidance performed by Ginger Milton MD at [facility] MEDICATIONS Medications Prior to Admission [...] fluticasone propionate (FLONASE) 50 mcg/Actuation nasal spray Lynn 50 mcg in each nostril Once Daily. One spray both nostrils daily ferrous sulfate 325 mg (65 mg iron) DR tablet Take 325 mg by mouth Once Daily. topiramate (TOPAMAX) 25 mg Take 25 mg by mouth Once Daily. naloxone (NARCAN) 4 mg/actuation nasal spray Lynn 1 Lynn in nose As directed for 1 dose. Call 911, Administer via Nasal every 3-5 min until patient becomes responsive. Repeat as many times as necessary for pt to become responsive. 2 Each 11 Current Facility-Administered Medications Medication Dose Route Frequency Provider Last Rate Last Admin cefTRIAXone (ROCEPHIN) 2 g in NS (sodium chloride 0.9%) 100 mL (MINI-BAG) 2 g Intravenous Q24H Abelino New MD Stopped at 12/10/24 0524 rifAXIMin (XIFAXAN) tab 550 mg 550 mg Oral BID Abelino New MD furosemide (LASIX) tab 40 mg 40 mg Oral DAILY Abelino New MD spironolactone (ALDACTONE) tab 100 mg 100 mg Oral DAILY Abelino New MD lactulose (CHRONULAC) 20 gram/30 mL soln 30 g 30 g Oral TID Abelino New MD pantoprazole (PROTONIX) DR tab 40 mg 40 mg Oral DAILY Abelino New MD busPIRone (BUSPAR) tab 10 mg 10 mg Oral TID Abelino New MD traZODone (DESYREL) tab 50 mg 50 mg Oral QHS PRN Abelino New MD FLUoxetine (PROzac) cap 20 mg 20 mg Oral DAILY Abelino New MD ipratropium-albuteroL (DUO-NEB) 0.5 mg-3 mg(2.5 mg base)/3 mL neb soln 3 mL 3 mL Inhalation Q6H PRNGAbelino sellers MD Lactobacillus rhamnosus GG (CULTURELLE) 15 billion cell sprinke cap 1 Capsule 1 Capsule Oral BID Abelino New MD sodium chloride flush 0.9 % syringe 10 mL 10 mL Intravenous Q8H Abelino New MD 10 mL at 12/10/24 0613 sodium chloride flush 0.9 % syringe 10 mL 10 mL Intravenous PRN Abelino New MD potassium chloride SA (KLOR-CON M20) tab 20 mEq 20 mEq Oral DIR PRN Abelino New MD magnesium sulfate in water (2g/50mL premix) piggyback (PREMIX) 2 g 2 g Intravenous DIR PRN Abelino New MD calcium gluconate in NaCl (ISO-OS) 100mL piggyback (PREMIX) 2 g 2 g Intravenous DIR PRN Abelino New MD acetaminophen (TYLENOL) tab 650 mg 650 mg Oral Q6H PRN Abelino New MD acetaminophen (TYLENOL) tab 500 mg 500 mg Oral Q4H PRN Abelino New MD 500 mg at 12/10/24 0422 [...] Resource Strain: Medium Risk (11/22/2023) Received from [facility], [facility] Overall Financial Resource Strain (CARDIA) Difficulty of [...] and facilitate. -review of Care Everywhere indicates [facility] no longer covered by insurance -EGD as [...] by: Miranda Marques APRN 12/10/2024 11:40 AM WARD CLERK NOTE Patient seen on : 12-10-2024 HPI: [...] fluticasone propionate (FLONASE) 50 mcg/Actuation nasal spray Lynn 50 mcg in each nostril Once Daily. One spray both nostrils daily ferrous sulfate 325 mg (65 mg iron) DR tablet Take 325 mg by mouth Once Daily. topiramate (TOPAMAX) 25 mg Take 25 mg by mouth Once Daily. naloxone (NARCAN) 4 mg/actuation nasal spray Lynn 1 Lynn in nose As directed for 1 dose. [...] with the plan of care. Signed: Ginger Milotn M.D. 12/10/2024 8:39 AM documented in [facility]* Care Plan Note - Valentine Nieves [...] Adequate nutritional intake Description: Interventions: -Consult to financial services officer -Intake and output measurement -Calorie count if [...] Education, tobacco use cessation methods Outcome: [facility]ng[facility]ing [facility]03-19-2025 Note* End of Shift Note - Valentine [...] Totals Intake/Output 12/11/24 0700 - 12/12/24 0659 [phone] [phone] Total Intake P.O. 600 0 600 I.V. [...] Abnormalities No Labs No results found for: "FUNCTIONAL", "PLTAGGREG" Lab Results Component Value Date RBC 3.62 [...] Date Education Provided Other (Comment) Fall prevention [facility]03-18-20[facility] Note* Adv. Directive - Mary Haynes BSW - 12/11/2024 10:39 AM EDT Identified Next of Kin/Decision Maker: Vannesa Hightower (Daughter) [phone] (H) Comments: If there comes a time the patient is unable to make their own medical decisions, the above named is the closest living relative for decision making purposes. Mary NAM Social Work [facility]03-18-2025 Note* Care Plan Note - Mary Haynes BSW - 12/11/2024 10:38 AM EDT SW DISCHARGE/TREATMENT PLAN: 12/11/24 Pt to return to [facility] [phone] 1. Anticipate DC to home once medically stable. 2. Pt defers HH 3. SW to follow. Mary NAM Social Work [facility]03-18-2025 Consult note* Mary Haynes BSW - 12/11/2024 10:24 AM EDTAssociated Order(s): IP CONSULT TO SOCIAL WORK SOCIAL WORK ASSESSMENT DATE: 12/11/24 PATIENT NAME: Carolina Hightower MEDICAL UNIT: [id number] PURPOSE OF SOCIAL WORK INTERVENTION/REFERRAL: SW consulted for, "dcp" ASSESSMENT: Interview conducted with/Information obtained from: A review of the pt medical record, spoke with tx team, as well as discussion with patient at bedside. Identifying Information & Presenting Problem: Per H&P, "Patient is a 49 y.o. female with PMHx noted below, presenting via transfer from [facility] with c/o LLQ abdominal pain and lower back pain. She states the pain is "bubbling" and couldnot elaborate further, and it's been there for about a week, around the same time when she had her paracentesis on 12/06/24 at [facility]. Patient denies LANCE, fever, chill, nausea/vomiting, chest pain, shortness of breath, dizziness, palpitations, focal motor/sensory deficit, dysuria, or diarrhea. During [facility] w/u CAGE SUPERVISOR, the pt underwent a CT abd w/ contrast that showed cirrhosis, portal HTN, and moderate volume ascites. " Living Situation: Pt lives at the [facility]. Daily Functional Status CAGE SUPERVISOR: Patient is independent with ADL's. Support System: Family Medical Equipment: N/A Home Care Services (HH, Passport, Waiver, Private Caregivers, MOW etc) and Preferred Provider: Pt defers HH at this time. Community Services (mental health services, speciality clinics such as coumadin clinic, mental health services): [facility] IDENTIFIED SOCIAL DETERMINATES OF HEALTH (if yes explain): Housing: N/A Food: N/A Medications: N/A Transportation: N/A MEDICAL HISTORY: Pertinent Past Hx: Past Medical History: Diagnosis Date Ascites Bipolar disorder Chronic hepatitis C virus infection Cirrhosis Kidney stone PCP: Ange Espinoza DO Insurance: Payor: [employer] / Plan: PUJA VELAZQUEZ [place] / Product [...] (ADMIT) General Medicine Tod Son DO; Lambert Christie DO Ascites (Primary Dx); Amphetamine-type substance use [...] - 11/20/2024 ED (ELOPEMENT) Emergency Department Lambert Christie DO Viral syndrome (Primary Dx) 11/29/2024 Pre-admit Endoscopy Katharina Welsh MD 12/10/2024 ED to Hosp-Admission (Current) (ADMIT) Clinical Decision Unit Isabella Torrez MD; Leah Hectro DO Abdominal pain (Primary Dx); Ascites; Lower back pain ADVANCE DIRECTIVES/NEXT OF KIN IDENTIFICATION: Vannesa Hightower (Daughter) [phone] (H) No AD on file in the medical center. DISCUSSION & INTERVENTION: Treatment Team/Social Work Assessment of Needs and Disposition: Discussed dcp and possible needs. Patient & Family Perspective of Needs and Disposition: SW spoke with patient at bedside. Pt plans to return to [facility] upon d/c. Pt defers HH at this time. No DME needed. Left voicemail with [facility] regarding transport. SW to follow. Discussion: SW educated patient on the role of the SW and that SW will continue to follow. SW informed patient that treatment options may vary based on the healthcare team recommendations and patient's progress.Patient voiced understanding. SW DISCHARGE/TREATMENT PLAN: 12/11/24 Pt to return to [facility], [place]- [phone] 1. Anticipate DC to home once medically stable. 2. Pt defers HH 3. SW to follow. Mary NAM Social Work [facility]03-18-20[facility] Note* Care Plan Note - Valentine Nieves [...] Adequate nutritional intake Description: Interventions: -Consult to financial services officer -Intake and output measurement -Calorie count if [...] Education, tobacco use cessation methods Outcome: [facility]ing [facility]03-18-[facility] Note* End of Shift Note - Valentine [...] Totals Intake/Output 12/10/24 0700 - 12/11/24 0659 [phone] Total Intake P.O. 350 360 710 I.V. [...] Abnormalities No Labs No results found for: "FUNCTIONAL", "PLTAGGREG" Lab Results Component Value Date RBC 3.77 [...] Date Education Provided Other (Comment) Fall prevention [facility]03-17-20[facility] Note* Care Plan Note - Chilo Henry [...] Adequate nutritional intake Description: Interventions: -Consult to financial services officer -Intake and output measurement -Calorie count if [...] Education, tobacco use cessation methods Outcome: [facility]ng[facility]ing [facility]03-17-20[facility] Note* End of Shift Note - Chilo Henry LPN - 12/10/2024 6:42 PM EDT Nursing End of Shift Summary Pertinent changes to patient conditions and/or care this shift: N\\o Vital Signs Weight: 84.5 kg (186 lb [...] (Not Admitted) 12/10/24 0700 - 12/11/24 0659 [phone] Total [phone] Total Intake P.O. -- -- -- 350 [...] Abnormalities No Labs No results found for: "FUNCTIONAL", "PLTAGGREG" Lab Results Component Value Date RBC 3.77 [...] Planning Home Expected Discharge Date Education Provided [facility]03-17-20[facility] Note* Care Plan Note - Gwyn Garsia [...] Adequate nutritional intake Description: Interventions: -Consult to financial services officer -Intake and output measurement -Calorie count if [...] Education, tobacco use cessation methods Outcome: [facility]ngoing [facility]03-17-2025 Consult note* Katharina Welsh MD - 12/10/2024 11:00 AM EDTAssociated Order(s): IP CONSULT TO GASTROENTEROLOGY GASTROENTEROLOGY CONSULT NOTE iMranda Marques 12/10/2024 Patient Name: Carolina Hightower : 1975 Medical Record: [id number] REQUESTING PHYSICIAN Isabella Ch MD PRIMARY CARE [...] BIOPSY performed by Katharina Welsh MD at [facility]X EGJ 09/07/2024 EGD /C BAND LIGATION VARICES performed by Katharina Welsh MD at [facility]X LIVER BIOPSY HX POST STERILIZATION PARACENTESIS N/A 07/02/2024 Paracentesis performed by Max Rico MD at [facility] PARACENTESIS N/A 07/09/2024 Paracentesis performed by Ginger Milton MD at [facility] PARACENTESIS N/A 07/19/2024 Paracentesis performed by Minda Gómez MD at [facility] PARACENTESIS N/A 07/26/2024 Paracentesis performed by Max Rico MD at [facility] PARACENTESIS N/A 08/02/2024 Paracentesis performed by Ginger Milton MD at [facility] PARACENTESIS N/A 08/09/2024 Paracentesis performed by Minda Gómez MD at [facility] PARACENTESIS N/A 08/16/2024 Paracentesis performed by Ginger Milton MD at [facility] PARACENTESIS N/A 08/22/2024 Paracentesis performed by Max Rico MD at [facility] PARACENTESIS N/A 08/30/2024 Paracentesis performed by Minda Gómez MD at [facility] PARACENTESIS N/A 09/04/2024 Paracentesis performed by Ginger Milton MD at [facility] PARACENTESIS N/A 09/13/2024 Paracentesis performed by Max Rico MD at [facility] PARACENTESIS N/A 09/20/2024 Paracentesis performed by Minda Gómez MD at [facility] PARACENTESIS N/A 09/27/2024 Paracentesis performed by Ginger Milton MD at [facility] PARACENTESIS N/A 10/03/2024 Paracentesis performed by Max Rico MD at [facility] PARACENTESIS N/A 10/18/2024 Paracentesis performed by Ginger Milton MD at [facility] PARACENTESIS N/A 11/28/2024 Paracentesis performed by Minda Gómez MD at [facility] PARACENTESIS N/A 12/06/2024 Paracentesis performed by Max Rico MD at [facility] PARACENTESIS N/A 12/10/2024 Paracentesis performed by Ginger Milton MD at [facility] ULTRASOUND GUIDANCE N/A 07/02/2024 Ultrasound Guidance performed by Max Rico MD at [facility] ULTRASOUND GUIDANCE N/A 07/09/2024 Ultrasound Guidance performed by Ginger Milton MD at [facility] ULTRASOUND GUIDANCE N/A 07/19/2024 Ultrasound Guidance performed by Minda Gómez MD at [facility] ULTRASOUND GUIDANCE N/A 07/26/2024 Ultrasound Guidance performed by Max Rico MD at [facility] ULTRASOUND GUIDANCE N/A 08/02/2024 Ultrasound Guidance performed by Ginger Milton MD at [facility] ULTRASOUND GUIDANCE N/A 08/09/2024 Ultrasound Guidance performed by Minda Gómez MD at [facility] ULTRASOUND GUIDANCE N/A 08/16/2024 Ultrasound Guidance performed by Ginger Milton MD at [facility] ULTRASOUND GUIDANCE N/A 08/22/2024 Ultrasound Guidance performed by Max Rico MD at [facility] ULTRASOUND GUIDANCE N/A 08/30/2024 Ultrasound Guidance performed by Minda Gómez MD at [facility] ULTRASOUND GUIDANCE N/A 09/04/2024 Ultrasound Guidance performed by Ginger Milton MD at [facility] ULTRASOUND GUIDANCE N/A 09/13/2024 Ultrasound Guidance performed by Max Rico MD at [facility] ULTRASOUND GUIDANCE N/A 09/20/2024 Ultrasound Guidance performed by Minda Gómez MD at [facility] ULTRASOUND GUIDANCE N/A 09/27/2024 Ultrasound Guidance performed by Ginger Milton MD at [facility] ULTRASOUND GUIDANCE N/A 10/03/2024 Ultrasound Guidance performed by Max Rico MD at [facility] ULTRASOUND GUIDANCE N/A 10/18/2024 Ultrasound Guidance performed by Ginger Milton MD at [facility] ULTRASOUND GUIDANCE N/A 10/30/2024 Ultrasound Guidance performed by Minda Gómez MD at [facility] ULTRASOUND GUIDANCE N/A 11/28/2024 Ultrasound Guidance performed by Minda Gómez MD at [facility] ULTRASOUND GUIDANCE N/A 12/06/2024 Ultrasound Guidance performed by Max Rico MD at [facility] ULTRASOUND GUIDANCE N/A 12/10/2024 Ultrasound Guidance performed by Ginger Milton MD at [facility] MEDICATIONS Medications Prior to Admission [...] fluticasone propionate (FLONASE) 50 mcg/Actuation nasal spray Lynn 50 mcg in each nostril Once Daily. One spray both nostrils daily ferrous sulfate 325 mg (65 mg iron) DR tablet Take 325 mg by mouth Once Daily. topiramate (TOPAMAX) 25 mg Take 25 mg by mouth Once Daily. naloxone (NARCAN) 4 mg/actuation nasal spray Lynn 1 Lynn in nose As directed for 1 dose. Call 911, Administer via Nasal every 3-5 min until patient becomes responsive. Repeat as many times as necessary for pt to become responsive. 2 Each 11 Current Facility-Administered Medications Medication Dose Route Frequency Provider Last Rate Last Admin cefTRIAXone (ROCEPHIN) 2 g in NS (sodium chloride 0.9%) 100 mL (MINI-BAG) 2 g Intravenous Q24H Abelino New MD Stopped at 12/10/24 0524 rifAXIMin (XIFAXAN) tab 550 mg 550 mg Oral BID Abelino New MD furosemide (LASIX) tab 40 mg 40 mg Oral DAILY Abelino New MD spironolactone (ALDACTONE) tab 100 mg 100 mg Oral DAILY Abelino New MD lactulose (CHRONULAC) 20 gram/30 mL soln 30 g 30 g Oral TID Abelino New MD pantoprazole (PROTONIX) DR tab 40 mg 40 mg Oral DAILY Abelino New MD busPIRone (BUSPAR) tab 10 mg 10 mg Oral TID Abelino New MD traZODone (DESYREL) tab 50 mg 50 mg Oral QHS PRN Abelino New MD FLUoxetine (PROzac) cap 20 mg 20 mg Oral DAILY Abelino New MD ipratropium-albuteroL (DUO-NEB) 0.5 mg-3 mg(2.5 mg base)/3 mL neb soln 3 mL 3 mL Inhalation Q6H PRNGAbelino sellers MD Lactobacillus rhamnosus GG (CULTURELLE) 15 billion cell sprinke cap 1 Capsule 1 Capsule Oral BID Abelino New MD sodium chloride flush 0.9 % syringe 10 mL 10 mL Intravenous Q8H Abelino New MD 10 mL at 12/10/24 0613 sodium chloride flush 0.9 % syringe 10 mL 10 mL Intravenous PRN Abelino New MD potassium chloride SA (KLOR-CON M20) tab 20 mEq 20 mEq Oral DIR PRN Abelino New MD magnesium sulfate in water (2g/50mL premix) piggyback (PREMIX) 2 g 2 g Intravenous DIR PRN Abelino New MD calcium gluconate in NaCl (ISO-OS) 100mL piggyback (PREMIX) 2 g 2 g Intravenous DIR PRN Abelino New MD acetaminophen (TYLENOL) tab 650 mg 650 mg Oral Q6H PRN Abelino New MD acetaminophen (TYLENOL) tab 500 mg 500 mg Oral Q4H PRN Abelino New MD 500 mg at 12/10/24 0422 [...] Resource Strain: Medium Risk (11/22/2023) Received from [facility], [facility] Overall Financial Resource Strain (CARDIA) Difficulty of [...] Pulse: 75 76 73 58 Resp: 15 18 18 Temp: 98.5 F (36.9 C) [...] and facilitate. -review of Care Everywhere indicates [facility] no longer covered by insurance -EGD as [...] by: Miranda Marques APRN 12/10/2024 11:40 AM WARD CLERK NOTE Patient seen on : 12-10-2024 HPI: [...] Katharina Welsh M.D., MD 12/10/2024 5:02 PM [facility]03-17-2025 Consult note* Ginger Milton MD - 12/10/2024 [...] fluticasone propionate (FLONASE) 50 mcg/Actuation nasal spray Lynn 50 mcg in each nostril Once Daily. One spray both nostrils daily ferrous sulfate 325 mg (65 mg iron) DR tablet Take 325 mg by mouth Once Daily. topiramate (TOPAMAX) 25 mg Take 25 mg by mouth Once Daily. naloxone (NARCAN) 4 mg/actuation nasal spray Lynn 1 Lynn in nose As directed for 1 dose. [...] Signed: Ginger Milton M.D. 12/10/2024 8:39 AM [facility] Work Phone: 1(857) 515-932703-17-2025 Emergency department Note* Radha Bauer RN - [...] patient demonstrated usage. Will continue to monitor [facility]03-17-2025 Emergency department Note* Radha Bauer RN [...] 12/10/2024 5:36 AM EDT Talked with dr montanez , no new orders received at this [...] , fsbs [address] montanez to ask about meds , * Radha [...] RN - 12/10/2024 3:[address] montanez did not call back but has placed [...] Pt sent to ed by ems from [facility] for abd pain and back pain for 3-4 days, had paracentesis her thurs. Pt had normal labs and ct abd with contrast all neg at [facility] , upon arriavl to ed , skin w/d pink a/ox4 no distress, asking for pain meds , pain is 8 per pt . documented [facility] this [facility] Emergency department Note* Radha Bauer RN - 12/10/2024 5:36 AM EDT Talked with dr montanez , no new orders received at this time [facility]03-17-2025 Emergency department Note* Radha Bauer RN [...] , fsbs [address] montanez to ask about meds , [facility]03-17-2025 Emergency department Note* Radha Bauer RN [...] light at bedside and patient demonstrated usage. [facility]03-17-2025 Emergency department Note* Radha Bauer RN - 12/10/2024 3:[address] montanez did not call back but has placed some orders at this time [facility]03-17-2025 History and physical note* Abelino New MD - 12/10/2024 3:44 AM EDT Images from the original note were not included. HISTORY AND PHYSICAL Service: Hospital Medicine Author: Abelino New Patient Name: Carolina Hightower GORGE:[id number] 1975 PMD: Alexis AngeDO Admission date: 12/10/2024 1:01 AM History of Present Illness: Patient is a 49 y.o. female with PMHx noted below, presenting via transfer from [facility] with c/o LLQ abdominal pain and lower back pain. She states the pain is "bubbling" and could not elaboratefurther, and it's been there for about a week, around the same time when she had her paracentesis on 12/06/24 at [facility]. Patient denies LANCE, fever, chill, nausea/vomiting, chest pain, shortness of breath, dizziness, palpitations, focal motor/sensory deficit, dysuria, or diarrhea. During [facility] w/u CAGE SUPERVISOR, the pt underwent a CT abd w/ [...] following: Height as of this encounter: 5' 2" (157.5 cm). Weight as of this encounter: [...] agreement with the plan. Electronically Signed By: Abelino New MD 12/10/2024 3:44 AM By signing this note, I attest that I have reviewed and, if necessary, edited the information contained in this note. [facility]03-17-2025 History and physical note* Abelino New MD - 12/10/2024 3:44 AM EDT Images from the original note were not included. HISTORY AND PHYSICAL Service: Hospital Medicine Author: Abelino New Patient Name: Carolina Hightower GORGE:[id number] 1975 PMD: Ange Espinoza DO Admission date: 12/10/2024 1:01 AM History of Present Illness: Patient is a 49 y.o. female with PMHx noted below, presenting via transfer from [facility] with c/o LLQ abdominal pain and lower back pain. She states the pain is "bubbling" and could not elaboratefurther, and it's been there for about a week, around the same time when she had her paracentesis on 12/06/24 at [facility]. Patient denies LANCE, fever, chill, nausea/vomiting, chest pain, shortness of breath, dizziness, palpitations, focal motor/sensory deficit, dysuria, or diarrhea. During [facility] w/u CAGE SUPERVISOR, the pt underwent a CT abd w/ [...] following: Height as of this encounter: 5' 2" (157.5 cm). Weight as of this encounter: [...] agreement with the plan. Electronically Signed By: Abelino New MD 12/10/2024 3:44 AM By signing this note, I attest that I have reviewed and, if necessary, edited the information contained in this note. documented in this [facility]03-17-2025 Emergency department Note* Radha Bauer, NASH - 12/10/2024 3:17 AM EDT Pt placed back on bp and sat monitors , pt wants pain meds , call into the provider at this time. Skin w/d pink a/ox4 no distress. [facility]03-17-2025 Emergency department Triage note* Radha Bauer RN - 12/10/2024 1:22 AM EDT Pt sent to ed by ems from [facility] for abd pain and back pain for 3-4 days, had paracentesis her th. Pt had normal labs and ct abd with contrast all neg at [facility] , upon arriavl to ed , skin w/d pink a/ox4 no distress, asking for pain meds , pain is 8 per pt . [facility]03-13-2025 NoteProcedure: Ultrasound-guided therapeutic paracentesis Indication: Alcoholic cirrhosis, [...] Using sonographic guidance aseptic trocar technique 6.5 Nauruan MERIT resolve drainage catheter was placed into the peritoneal cavity of the left lower quadrant followed by the removal of 500 mL yellow ascitic fluid. The catheter was removed, examined and found to be intact. No reported immediate complication or patient complaint. Impression: Technically successful ultrasound-guided paracentesis as above [facility]03-13-2025 Hospital Discharge instructions* Discharge Instructions* Kiersten Victoria [...] or rescheduled please call the nurse at [phone]. If you have any questions or concerns about your procedure please call: [phone] or [phone]. These instructions have been explained to me. I understand their content and have received a copy. Sign: Witness: Thank you for choosing [facility] Vascular and Interventional Department documented in this encounterJames [facility]. [facility]03-[facility] History and physical note* Max Rico MD [...] fluticasone propionate (FLONASE) 50 mcg/Actuation nasal spray Lynn 50 mcg in each nostril Once Daily. One spray both nostrils daily ferrous sulfate 325 mg (65 mg iron) DR tablet Take 325 mg by mouth Once Daily. topiramate (TOPAMAX) 25 mg Take 25 mg by mouth Once Daily. naloxone (NARCAN) 4 mg/actuation nasal spray Lynn 1 Lynn in nose As directed for 1 dose. [...] Signed: Max Rico MD 12/06/2024 9:40 AM [facility] Work Phone: [phone]) 629-770703-13-2025 History and physical note* Max Rico MD [...] Minda Gómez MD 10 mL at 11/28/24 0946 Current Outpatient Medications on File Prior to [...] fluticasone propionate (FLONASE) 50 mcg/Actuation nasal spray Lynn 50 mcg in each nostril Once Daily. One spray both nostrils daily ferrous sulfate 325 mg (65 mg iron) DR tablet Take 325 mg by mouth Once Daily. topiramate (TOPAMAX) 25 mg Take 25 mg by mouth Once Daily. naloxone (NARCAN) 4 mg/actuation nasal spray Lynn 1 Lynn in nose As directed for 1 dose. [...] MD 12/06/2024 9:40 AM documented in this [facility]03-05-2025 History and physical note* Minda [...] fluticasone propionate (FLONASE) 50 mcg/Actuation nasal spray Lynn 50 mcg in each nostril Once Daily. One spray both nostrils daily ferrous sulfate 325 mg (65 mg iron) DR tablet Take 325 mg by mouth Once Daily. topiramate (TOPAMAX) 25 mg Take 25 mg by mouth Once Daily. naloxone (NARCAN) 4 mg/actuation nasal spray Lynn 1 Lynn in nose As directed for 1 dose. [...] Minda Gómez M.D., MD 11/28/2024 10:01 AM [facility] Work Phone: [phone]) 982-950203-05-2025 History and physical note* Minda Gómez MD [...] fluticasone propionate (FLONASE) 50 mcg/Actuation nasal spray Lynn 50 mcg in each nostril Once Daily. One spray both nostrils daily ferrous sulfate 325 mg (65 mg iron) DR tablet Take 325 mg by mouth Once Daily. topiramate (TOPAMAX) 25 mg Take 25 mg by mouth Once Daily. naloxone (NARCAN) 4 mg/actuation nasal spray Lynn 1 Lynn in nose As directed for 1 dose. [...] MD 11/28/2024 10:01 AM documented in this [facility] Emergency department Note* Tresa Breaux RN - 11/20/2024 2:05 AM EST Pt paged to triage 2 with no response. [facility]02-25-2025 Emergency department Note* Tresa Breaux RN - 11/20/2024 2:05 AM EST Pt paged to triage 2 with no response. * Tresa Breaux RN - 11/20/2024 1:30 AM EST Pt paged to triage 2 with no response. * Tiffany Sue RN - 11/19/2024 8:52 PM EST Pt paged to triage2 with no response * Lambert Christie DO - 11/19/2024 2:42 PM EST Carolina Hightower [[id number]] (F) - 49 y.o. Note Creation:11/20/2024 Encounter [...] BIOPSY performed by Katharina Welsh MD [place] [facility] [place] EGJ 09/07/2024 EGD /C BAND LIGATION VARICES performed by Katharina Welsh MD at [facility] LIVER BIOPSY HX POST STERILIZATION PARACENTESIS N/A 07/02/2024 Paracentesis performed by Max Rico MD at [facility] PARACENTESIS N/A 07/09/2024 Paracentesis performed by Ginger Milton MD at [facility] PARACENTESIS N/A 07/19/2024 Paracentesis performed by Minda Gómez MD at [facility] PARACENTESIS N/A 07/26/2024 Paracentesis performed by Max Rico MD at [facility] PARACENTESIS N/A 08/02/2024 Paracentesis performed by Ginger Milton MD at [facility] PARACENTESIS N/A 08/09/2024 Paracentesis performed by Minda Gómez MD at [facility] PARACENTESIS N/A 08/16/2024 Paracentesis performed by Ginger Milton MD at [facility] PARACENTESIS N/A 08/22/2024 Paracentesis performed by Max Rico MD at [facility] PARACENTESIS N/A 08/30/2024 Paracentesis performed by Minda Gómez MD at [facility] PARACENTESIS N/A 09/04/2024 Paracentesis performed by Ginger Milton MD at [facility] PARACENTESIS N/A 09/13/2024 Paracentesis performed by Max Rico MD at [facility] PARACENTESIS N/A 09/20/2024 Paracentesis performed by Minda Gómez MD at [facility] PARACENTESIS N/A 09/27/2024 Paracentesis performed by Ginger Milton MD at [facility] PARACENTESIS N/A 10/03/2024 Paracentesis performed by Max Rico MD at [facility] PARACENTESIS N/A 10/18/2024 Paracentesis performed by Ginger Milton MD at [facility] ULTRASOUND GUIDANCE N/A 07/02/2024 Ultrasound Guidance performed by Max Rico MD at [facility] ULTRASOUND GUIDANCE N/A 07/09/2024 Ultrasound Guidance performed by Ginger Milton MD at [facility] ULTRASOUND GUIDANCE N/A 07/19/2024 Ultrasound Guidance performed by Mnida Gómez MD at [facility] ULTRASOUND GUIDANCE N/A 07/26/2024 Ultrasound Guidance performed by Max Rico MD at [facility] ULTRASOUND GUIDANCE N/A 08/02/2024 Ultrasound Guidance performed by Ginger Milton MD at [facility] ULTRASOUND GUIDANCE N/A 08/09/2024 Ultrasound Guidance performed by Minda Gómez MD at [facility] ULTRASOUND GUIDANCE N/A 08/16/2024 Ultrasound Guidance performed by Ginger Milton MD at [facility] ULTRASOUND GUIDANCE N/A 08/22/2024 Ultrasound Guidance performed by Max Rico MD at [facility] ULTRASOUND GUIDANCE N/A 08/30/2024 Ultrasound Guidance performed by Minda Gómez MD at [facility] ULTRASOUND GUIDANCE N/A 09/04/2024 Ultrasound Guidance performed by Ginger Milton MD at [facility] ULTRASOUND GUIDANCE N/A 09/13/2024 Ultrasound Guidance performed by Max Rico MD at [facility] ULTRASOUND GUIDANCE N/A 09/20/2024 Ultrasound Guidance performed by Minda Gómez MD at [facility] ULTRASOUND GUIDANCE N/A 09/27/2024 Ultrasound Guidance performed by Ginger Milton MD at [facility] ULTRASOUND GUIDANCE N/A 10/03/2024 Ultrasound Guidance performed by Max Rico MD at [facility] ULTRASOUND GUIDANCE N/A 10/18/2024 Ultrasound Guidance performed by Ginger Milton MD at [facility] ULTRASOUND GUIDANCE N/A 10/30/2024 Ultrasound Guidance performed by Minda Gómez MD at [facility] Family History Problem Relation Name [...] fluticasone propionate (FLONASE) 50 mcg/Actuation nasal spray Lynn 50 mcg in each nostril Once Daily. One spray both nostrils daily ferrous sulfate 325 mg (65 mg iron) DR tablet Take 325 mg by mouth Once Daily. topiramate (TOPAMAX) 25 mg Take 25 mg by mouth Once Daily. naloxone (NARCAN) 4 mg/actuation nasal spray Lynn 1 Lynn in nose As directed for 1 dose. [...] Result time 11/19/24 15:13:19 Final result Narrative: [place] [address] Radiology PATIENT NAME: Carolina Hightower MR#: [id number] PROCEDURE DATE: 11/19/2024 ROOM#: LTX ORDERING PHYS: Lambert Christie PROCEDURE: XR CHEST PA AND LATERAL CLINICAL INFORMATION: dyspnea COMPARISON: 09/01/2024 FINDINGS: The lungs are well expanded. There is no pneumothorax, pleural effusion, or regional airspace consolidation. The cardiomediastinal structures are normal in appearance. Bony thorax is intact. IMPRESSION: No evidence of acute cardiopulmonary abnormality. THIS IS AN ELECTRONICALLY VERIFIED REPORT 11/19/2024 3:10 PM: MD Terry Greene MD gs TD: 11/19/2024 JOB #: [id number] Radiology Page 1 of 1 COPY Plan: [facility] RECHECK: Discharge: The pt is awake, [...] for and in the presence of Lambert Christie DO Electronically Signed By Silvia Mosqeuda 11/19/2024 2:44 PM Provider Attestation: I personally performed the services described in the documentation, reviewed the documentation recorded by the scribe in my presence and it accurately and completely records my words and actions. Electronically Signed By Lambert Christie DO 11/20/2024 12:48 AM documented in this encounterJames [facility]. [facility] Emergency department Note* Tresa Breaux RN - 11/20/2024 1:30 AM EST Pt paged to triage 2 with no response. [facility]02-24-2025 Emergency department Note* Tiffany Sue RN - 11/19/2024 8:52 PM EST Pt paged to triage2 with no response [facility]02-24-2025 Hospital Discharge instructions* Discharge Instructions* Lambert Christie DO - 11/19/2024 8:11 PM EST F/u w pcp Return for acute issues If worse symptoms then return for repeat exam documented in this encounterJames [facility]. [facility]-24-2025 Note* Critical Test Results - Gricel Avila RN - 11/19/2024 4:04 PM EST Carolina Hightower Test Name: shamir Results: 44 11/19/2024 Time: 1604 Received from: alessandro R/V by: nash valentine (Required: Attempt notification within 30 minutes or document reason for no notification) Physician: gracie 11/19/2024 Time: 1604 Notified: Yes - No orders received [facility]02-24-2025 Miscellaneous Notes* Critical Test Results - Gricel Avila RN - 11/19/2024 4:04 PM EST Carolina Hightower Test Name: platlet Results: 44 11/19/2024 Time: 1604 Received from: alessandro Cohen/Meme by: nash valentine (Required: Attempt notification within 30 minutes or document reason for no notification) Physician: gracie 11/19/2024 Time: 1604 Notified: Yes - No orders received documented in this encounterJames B. [facility]02-[facility]25 Physician Emergency department Note* Driss Christies, - 11/19/2024 2:42 PM EST Carolina Hightower [[id number]] (F) - 49 y.o. Note Creation:11/20/2024 Encounter [...] BIOPSY performed by Katharina Welsh MD at [facility] EGJ 09/07/2024 EGD /C BAND LIGATION VARICES performed by Katharina Welsh MD at [facility] LIVER BIOPSY HX POST STERILIZATION PARACENTESIS N/A 07/02/2024 Paracentesis performed by Max Rico MD at [facility] PARACENTESIS N/A 07/09/2024 Paracentesis performed by Ginger Milton MD at [facility] PARACENTESIS N/A 07/19/2024 Paracentesis performed by Minda Gómez MD at [facility] PARACENTESIS N/A 07/26/2024 Paracentesis performed by Max Rico MD at [facility] PARACENTESIS N/A 08/02/2024 Paracentesis performed by Ginger Milton MD at [facility] PARACENTESIS N/A 08/09/2024 Paracentesis performed by Minda Gómez MD at [facility] PARACENTESIS N/A 08/16/2024 Paracentesis performed by Ginger Milton MD at [facility] PARACENTESIS N/A 08/22/2024 Paracentesis performed by Max Rico MD at [facility] PARACENTESIS N/A 08/30/2024 Paracentesis performed by Minda Gómez MD at [facility] PARACENTESIS N/A 09/04/2024 Paracentesis performed by Ginger Milton MD at [facility] PARACENTESIS N/A 09/13/2024 Paracentesis performed by Max Rico MD at [facility] PARACENTESIS N/A 09/20/2024 Paracentesis performed by Minda Gómez MD at [facility] PARACENTESIS N/A 09/27/2024 Paracentesis performed by Ginger Milton MD at [facility] PARACENTESIS N/A 10/03/2024 Paracentesis performed by Max Rico MD at [facility] PARACENTESIS N/A 10/18/2024 Paracentesis performed by Ginger Milton MD at [facility] ULTRASOUND GUIDANCE N/A 07/02/2024 Ultrasound Guidance performed by Max Rico MD at [facility] ULTRASOUND GUIDANCE N/A 07/09/2024 Ultrasound Guidance performed by Ginger Milton MD at [facility] ULTRASOUND GUIDANCE N/A 07/19/2024 Ultrasound Guidance performed by Minda Gómez MD at [facility] ULTRASOUND GUIDANCE N/A 07/26/2024 Ultrasound Guidance performed by Max Rico MD at [facility] ULTRASOUND GUIDANCE N/A 08/02/2024 Ultrasound Guidance performed by Ginger Milton MD at [facility] ULTRASOUND GUIDANCE N/A 08/09/2024 Ultrasound Guidance performed by Minda Gómez MD at [facility] ULTRASOUND GUIDANCE N/A 08/16/2024 Ultrasound Guidance performed by Ginger Milton MD at [facility] ULTRASOUND GUIDANCE N/A 08/22/2024 Ultrasound Guidance performed by Max Rico MD at [facility] ULTRASOUND GUIDANCE N/A 08/30/2024 Ultrasound Guidance performed by Minda Gómez MD at [facility] ULTRASOUND GUIDANCE N/A 09/04/2024 Ultrasound Guidance performed by Ginger Milton MD at [facility] ULTRASOUND GUIDANCE N/A 09/13/2024 Ultrasound Guidance performed by Max Rico MD at [facility] ULTRASOUND GUIDANCE N/A 09/20/2024 Ultrasound Guidance performed by Minda Gómez MD at [facility] ULTRASOUND GUIDANCE N/A 09/27/2024 Ultrasound Guidance performed by Ginger Milton MD at [facility] ULTRASOUND GUIDANCE N/A 10/03/2024 Ultrasound Guidance performed by Max Rico MD at [facility] ULTRASOUND GUIDANCE N/A 10/18/2024 Ultrasound Guidance performed by Ginger Milton MD at [facility] ULTRASOUND GUIDANCE N/A 10/30/2024 Ultrasound Guidance performed by Minda Gómez MD at [facility] Family History Problem Relation Name [...] fluticasone propionate (FLONASE) 50 mcg/Actuation nasal spray Lynn 50 mcg in each nostril Once Daily. One spray both nostrils daily ferrous sulfate 325 mg (65 mg iron) DR tablet Take 325 mg by mouth Once Daily. topiramate (TOPAMAX) 25 mg Take 25 mg by mouth Once Daily. naloxone (NARCAN) 4 mg/actuation nasal spray Lynn 1 Lynn in nose As directed for 1 dose. [...] Result time 11/19/24 15:13:19 Final result Narrative: [facility] [address] [place] [address] Radiology PATIENT NAME: Carolina Hightower MR#: [id number] PROCEDURE DATE: 11/19/2024 ROOM#: LTX ORDERING PHYS: Lambert Christie PROCEDURE: XR CHEST PA AND LATERAL CLINICAL INFORMATION: dyspnea COMPARISON: 09/01/2024 FINDINGS: The lungs are well expanded. There is no pneumothorax, pleural effusion, or regional airspace consolidation. The cardiomediastinal structures are normal in appearance. Bony thorax is intact. IMPRESSION: No evidence of acute cardiopulmonary abnormality. THIS IS AN ELECTRONICALLY VERIFIED REPORT 11/19/2024 3:10 PM: MD Terry Greene MD TD: 11/19/2024 JOB #: [id number] Radiology Page 1 of 1 COPY Plan: [facility] RECHECK: Discharge: The pt is awake, [...] for and in the presence of Lambert Christie DO Electronically Signed By Silvia Mosqueda 11/19/2024 2:44 PM Provider Attestation: I personally performed the services described in the documentation, reviewed the documentation recorded by the scribe in my presence and it accurately and completely records my words and actions. Electronically Signed By Lambert Christie DO 11/20/2024 12:48 AM [facility]02-04-2025 History and physical note* Minda Gómez MD [...] fluticasone propionate (FLONASE) 50 mcg/Actuation nasal spray Lynn 50 mcg in each nostril Once Daily. One spray both nostrils daily ferrous sulfate 325 mg (65 mg iron) DR tablet Take 325 mg by mouth Once Daily. topiramate (TOPAMAX) 25 mg Take 25 mg by mouth Once Daily. naloxone (NARCAN) 4 mg/actuation nasal spray Lynn 1 Lynn in nose As directed for 1 dose. [...] Minda Gómez M.D., MD 10/30/2024 7:48 AM [facility] Work Phone: 1(171) 703-184802-04-2025 History and physical note* Minda Gómez MD [...] fluticasone propionate (FLONASE) 50 mcg/Actuation nasal spray Lynn 50 mcg in each nostril Once Daily. One spray both nostrils daily ferrous sulfate 325 mg (65 mg iron) DR tablet Take 325 mg by mouth Once Daily. topiramate (TOPAMAX) 25 mg Take 25 mg by mouth Once Daily. naloxone (NARCAN) 4 mg/actuation nasal spray Lynn 1 Lynn in nose As directed for 1 dose. [...] 10/30/2024 7:48 AM documented in this [facility]01-23-2025 Hospital Discharge instructions* Discharge Instructions* Tiffany Lovett [...] commercial purposes. The above information is an educational consultant only. It is not intended as medical advice for individual conditions or treatments. Talk to your doctor, nurse or pharmacist before following any medical regimen to see if it is safe and effective for you. documented in this encounterJames [facility]. [facility]01-[facility]-2025 Telephone encounter Note* Telephone Encounter - Kaylin Rhodes - 10/15/2024 3:49 PM EST LM we need to cancel her 10/24 appt due to her insurance being OON and they denied her coming here. [facility]01-20-2025 Miscellaneous Notes* Telephone Encounter - Kaylin Rhodes - 10/15/2024 3:49 PM EST LM we need to cancel her 10/24 appt due to her insurance being OON and they denied her coming here. documented in this encounterUniversity [facility] Telephone encounter Note * Telephone Encounter - Kaylin Rhodes - 10/10/2024 11:31 AM EST Called pt to notify her we received a denial from [facility] regarding her visit here on 10/24, so we need to cancel appt, LM to call me back [facility]01-15-2025 Miscellaneous Notes* Telephone Encounter - Kaylin Rhodes - 10/10/2024 11:31 AM EST Called pt to notify her we received a denial from [facility] regarding her visit here on 10/24, so we need to cancel appt, LM to call me back documented in this encounterUniversity [facility] Hospital Discharge instructions* Discharge Instructions* Pete Ponce MD - 10/04/2024 11:02 AM EST Follow up with your doctor next week for a re exam and future paracentesis with interventional radiology as needed for an out patient paracentesis. * Attachments The following attachments cannot be sent through Care Everywhere. * Cirrhosis of the Liver (AfterCare(R) Instructions(ER/ED)) (Czech) documented in this encounterJames B. [facility]01-09-2025 Note* Critical Test Results - Jacky Fernandez, NASH - 10/04/2024 8:36 AM EST Carolina Pollacker Test Name: PLATELETS Results: 43 10/04/2024 Time: 836 Received from: JESSI R/V by: JACKY (Required: Attempt notification within 30 minutes or document reason for no notification) Physician: DEZ 10/04/2024 Time: 836 Notified: Yes - No orders received [facility]01-09-2025 Miscellaneous Notes* Critical Test Results - Jacky Fernandez, NASH - 10/04/2024 8:36 AM EST Carolina Hightower Test Name: PLATELETS Results: 43 10/04/2024 Time: 836 Received from: JESSI R/Meme by: JACKY (Required: Attempt notification within 30 minutes or document reason for no notification) Physician: DEZ 10/04/2024 Time: 836 Notified: Yes - No orders received documented in this encounterJames B. Haggin [facility] Hospital01-09-2025 Emergency department Note* Hi Lara RN - 10/04/2024 8:17 AM EST Patient arrives to ed with complaint of abd pain. Patient states generalized abd pain. States hx ofliver disease. States she is rehab. Denies no other complaints. Patient is oneill x3, resp e/u, skin pwd. Nsoad. [facility]01-09-2025 Emergency department Note* Hi Lara RN - 10/04/2024 8:17 AM EST Patient arrives to ed with complaint of abd pain. Patient states generalized abd pain. States hx ofliver disease. States she is rehab. Denies no other complaints. Patient is oneill x3, resp e/u, skin pwd. Nsoad. documented in this encounterJames B. [facility]gin [facility]01-08-2025 Note Procedure: Ultrasound guided therapeutic paracentesis Indication: [...] sonographic guidance using aseptic technique a 6.5 Nauruan merit resolve drainage catheter was placed into [...] Technically successful ultrasound-guided therapeutic paracentesis as above. [facility]01-08-2025 Hospital Discharge instructions* Discharge Instructions* Luci Victoria [...] or rescheduled please call the nurse at [phone]. If you have any questions or concerns about your procedure please call: [phone] or [phone]. These instructions have been explained to me. I understand their content and have received a copy. Sign: Witness: Thank you for choosing [facility] Vascular and Interventional Department documented in this encounterJames B. Haggin [facility]01-08-2025 History and physical note* Max Rico MD - 10/03/2024 9:21 AM EST History and Physical for Interventional Radiology Name: Carolina [place] : 1975 10/03/2024 HPI: Ascites ascites Past [...] fluticasone propionate (FLONASE) 50 mcg/Actuation nasal spray Lynn 50 mcg in each nostril Once Daily. One spray both nostrils daily ferrous sulfate 325 mg (65 mg iron) DR tablet Take 325 mg by mouth Once Daily. topiramate (TOPAMAX) 25 mg Take 25 mg by mouth Once Daily. naloxone (NARCAN) 4 mg/actuation nasal spray Lynn 1 Lynn in nose As directed for 1 dose. [...] Signed: Max Rico MD 10/03/2024 9:21 AM [facility] Work Phone: 1(430) 214-438901-08-2025 History and physical note* Max Rico MD [...] fluticasone propionate (FLONASE) 50 mcg/Actuation nasal spray Lynn 50 mcg in each nostril Once Daily. One spray both nostrils daily ferrous sulfate 325 mg (65 mg iron) DR tablet Take 325 mg by mouth Once Daily. topiramate (TOPAMAX) 25 mg Take 25 mg by mouth Once Daily. naloxone (NARCAN) 4 mg/actuation nasal spray Lynn 1 Lynn in nose As directed for 1 dose. [...] MD 10/03/2024 9:21 AM documented in this encounterJames B. Haggin [facility]01-03-2025 Emergency department Note* Carolina Tolentino, RN - 09/28/2024 1:39 PM EST Patient to ed for cc of "feeling tired". Patient caox3, skin pwd, respirations even and unlabored. Dc instructions reviewed with patient. Verbalize understanding. Patient to ed lobby no acute distress noted [facility]01[facility] Emergency department Note* Carolina Tolentino RN - 09/28/2024 1:39 PM EST Patient to ed for cc of "feeling tired". Patient caox3, skin pwd, respirations even and unlabored. Dc instructions reviewed with patient. Verbalize understanding. Patient to ed lobby no acute distress noted * Pete Ponce MD - 09/28/2024 12:31 PM EST Carolina Hightower [[id number]] (F) - 48 y.o. Note Creation:09/28/2024 Encounter Date:09/28/2024 History Chief Complaint Patient presents with General Illness Carolina Hightower is a 48 year old female with hx of Hep C Cirrhosis who presents to the ED from [facility] for evaluation of fatigue and [...] BIOPSY performed by Katharina Welsh MD at [facility] EGJ 09/07/2024 EGD /C BAND LIGATION VARICES performed by Katharina Welsh MD at [facility] LIVER BIOPSY HX POST STERILIZATION PARACENTESIS N/A 07/02/2024 Paracentesis performed by Max Rico MD at [facility] PARACENTESIS N/A 07/09/2024 Paracentesis performed by Ginger Milton MD at [facility] PARACENTESIS N/A 07/19/2024 Paracentesis performed by Minda Gómez MD at [facility] PARACENTESIS N/A 07/26/2024 Paracentesis performed by Max Rico MD at [facility] PARACENTESIS N/A 08/02/2024 Paracentesis performed by Ginger Milton MD at [facility] PARACENTESIS N/A 08/09/2024 Paracentesis performed by Minda Gómez MD at [facility] PARACENTESIS N/A 08/16/2024 Paracentesis performed by Ginger Milton MD at [facility] PARACENTESIS N/A 08/22/2024 Paracentesis performed by Max Rico MD at [facility] PARACENTESIS N/A 08/30/2024 Paracentesis performed by Minda Gómez MD at [facility] PARACENTESIS N/A 09/04/2024 Paracentesis performed by Ginger Milton MD at [facility] PARACENTESIS N/A 09/13/2024 Paracentesis performed by Max Rico MD at [facility] PARACENTESIS N/A 09/20/2024 Paracentesis performed by Minda Gómez MD at [facility] PARACENTESIS N/A 09/27/2024 Paracentesis performed by Ginger Milton MD at [facility] ULTRASOUND GUIDANCE N/A 07/02/2024 Ultrasound Guidance performed by Max Rico MD at [facility] ULTRASOUND GUIDANCE N/A 07/09/2024 Ultrasound Guidance performed by Ginger Milton MD at [facility] ULTRASOUND GUIDANCE N/A 07/19/2024 Ultrasound Guidance performed by Minda Gómez MD at [facility] ULTRASOUND GUIDANCE N/A 07/26/2024 Ultrasound Guidance performed by Max Rico MD at [facility] ULTRASOUND GUIDANCE N/A 08/02/2024 Ultrasound Guidance performed by Ginger Milton MD at [facility] ULTRASOUND GUIDANCE N/A 08/09/2024 Ultrasound Guidance performed by Minda Gómez MD at [facility] ULTRASOUND GUIDANCE N/A 08/16/2024 Ultrasound Guidance performed by Ginger Milton MD at [facility] ULTRASOUND GUIDANCE N/A 08/22/2024 Ultrasound Guidance performed by Max Rico MD at [facility] ULTRASOUND GUIDANCE N/A 08/30/2024 Ultrasound Guidance performed by Minda Gómez MD at [facility] ULTRASOUND GUIDANCE N/A 09/04/2024 Ultrasound Guidance performed by Ginger Milton MD at [facility] ULTRASOUND GUIDANCE N/A 09/13/2024 Ultrasound Guidance performed by Max Rico MD at [facility] ULTRASOUND GUIDANCE N/A 09/20/2024 Ultrasound Guidance performed by Minda Gómez MD at [facility] ULTRASOUND GUIDANCE N/A 09/27/2024 Ultrasound Guidance performed by Ginger Milton MD at [facility] Family History Problem Relation Name [...] fluticasone propionate (FLONASE) 50 mcg/Actuation nasal spray Lynn 50 mcg in each nostril Once Daily. One spray both nostrils daily ferrous sulfate 325 mg (65 mg iron) DR tablet Take 325 mg by mouth Once Daily. topiramate (TOPAMAX) 25 mg Take 25 mg by mouth Once Daily. naloxone (NARCAN) 4 mg/actuation nasal spray Lynn 1 Lynn in nose As directed for 1 dose. [...] Result time 09/28/24 11:20:12 Final result Narrative: [facility] ED Test Date: 2024-09-28 Pat Name: CAROLINA HIGHTOWER Department: EMERGENCY DEPARTMENT Room: Gender: Female Burrito Maker: Ambreen powell : 1975 Requested By: PETE PONCE Order Number: [id number] Reading MD: Anjelica Bonilla MD Measurements Intervals [place] Rate: 61 P: 59 [place]: 182 QRS: 24 QRSD: 90 T: 38 QT: 442 QTc: 447 Interpretive Statements SINUS RHYTHM No previous ECG available for comparison Electronically Signed On 09-28-2024 11:20:04 EST by Anjelica Bonilla MD Preliminary result Narrative: [facility] ED Test Date: 2024-09-28 Pat Name: CAROLINA HIGHTOWER Department: EMERGENCY DEPARTMENT Room: Gender: Female Burrito Maker: Ambreen powell : 1975 Requested By: PETE PONCE Order Number: [id number] Reading MD: Measurements Intervals [place] Rate: 61 P: 59 [place]: 182 QRS: 24 QRSD: 90 T: 38 QT: 442 QTc: 447 Interpretive Statements SINUS RHYTHM Consult: Plan: [facility] [place]HECK: Discharge: The pt is awake, alert and stable appearing at time of reevaluation resting comfortably. I spoke with the patient about her ED work up, diagnosis and any further treatmentand to use lactulose 45 ml tid. I discussed the importance of following up with her CENTRIFUGAL CASTING MACHINE OPERATOR and GI. I instructed her to return [...] -- Discharge Instructions Follow up with your CENTRIFUGAL CASTING MACHINE OPERATOR Judie Gill as scheduled on 11/08 at [...] Finger stick gluc 137. [facility] Emergency department Note* Pete Ponce MD - 09/28/2024 12:31 PM EST Carolina Hightower [[id number]] (F) - 48 y.o. Note Creation:09/28/2024 Encounter Date:09/28/2024 History Chief Complaint Patient presents with General Illness Carolina Hightower is a 48 year old female with hx of Hep C Cirrhosis who presents to the ED from [facility] for evaluation of fatigue and [...] BIOPSY performed by Katharina Welsh MD at [facility] HX EGJ 09/07/2024 EGD /C BAND LIGATION VARICES performed by Katharina Welsh MD at [facility] LIVER BIOPSY HX POST STERILIZATION PARACENTESIS N/A 07/02/2024 Paracentesis performed by Max Rico MD at [facility] PARACENTESIS N/A 07/09/2024 Paracentesis performed by Ginger Milton MD at [facility] PARACENTESIS N/A 07/19/2024 Paracentesis performed by Minda Gómez MD at [facility] PARACENTESIS N/A 07/26/2024 Paracentesis performed by Max Rico MD at [facility] PARACENTESIS N/A 08/02/2024 Paracentesis performed by Ginger Milton MD at [facility] PARACENTESIS N/A 08/09/2024 Paracentesis performed by Minda Gómez MD at [facility] PARACENTESIS N/A 08/16/2024 Paracentesis performed by Ginger Milton MD at [facility] PARACENTESIS N/A 08/22/2024 Paracentesis performed by Max Rico MD at [facility] PARACENTESIS N/A 08/30/2024 Paracentesis performed by Minda Gómez MD at [facility] PARACENTESIS N/A 09/04/2024 Paracentesis performed by Ginger Milton MD at [facility] PARACENTESIS N/A 09/13/2024 Paracentesis performed by Max Rico MD at [facility] PARACENTESIS N/A 09/20/2024 Paracentesis performed by Minda Gómez MD at [facility] PARACENTESIS N/A 09/27/2024 Paracentesis performed by Ginger Milton MD at [facility] ULTRASOUND GUIDANCE N/A 07/02/2024 Ultrasound Guidance performed by Max Rico MD at [facility] ULTRASOUND GUIDANCE N/A 07/09/2024 Ultrasound Guidance performed by Ginger Milton MD at [facility] ULTRASOUND GUIDANCE N/A 07/19/2024 Ultrasound Guidance performed by Minda Gómez MD at [facility] ULTRASOUND GUIDANCE N/A 07/26/2024 Ultrasound Guidance performed by Max Rico MD at [facility] ULTRASOUND GUIDANCE N/A 08/02/2024 Ultrasound Guidance performed by Ginger Milton MD at [facility] ULTRASOUND GUIDANCE N/A 08/09/2024 Ultrasound Guidance performed by Minda Gómez MD at [facility] ULTRASOUND GUIDANCE N/A 08/16/2024 Ultrasound Guidance performed by Ginger Milton MD at [facility] ULTRASOUND GUIDANCE N/A 08/22/2024 Ultrasound Guidance performed by Max Rico MD at [facility] ULTRASOUND GUIDANCE N/A 08/30/2024 Ultrasound Guidance performed by Minda Gómez MD at [facility] ULTRASOUND GUIDANCE N/A 09/04/2024 Ultrasound Guidance performed by Ginger Milton MD at [facility] ULTRASOUND GUIDANCE N/A 09/13/2024 Ultrasound Guidance performed by Max iRco MD at [facility] ULTRASOUND GUIDANCE N/A 09/20/2024 Ultrasound Guidance performed by Minda Gómez MD at [facility] ULTRASOUND GUIDANCE N/A 09/27/2024 Ultrasound Guidance performed by Ginger Milton MD at [facility] Family History Problem Relation Name [...] fluticasone propionate (FLONASE) 50 mcg/Actuation nasal spray Lynn 50 mcg in each nostril Once Daily. One spray both nostrils daily ferrous sulfate 325 mg (65 mg iron) DR tablet Take 325 mg by mouth Once Daily. topiramate (TOPAMAX) 25 mg Take 25 mg by mouth Once Daily. naloxone (NARCAN) 4 mg/actuation nasal spray Lynn 1 Lynn in nose As directed for 1 dose. [...] Result time 09/28/24 11:20:12 Final result Narrative: [facility] ED Test Date: 2024-09-28 Pat Name: CAROLINA HIGHTOWER Department: EMERGENCY DEPARTMENT Room: Gender: Female Burrito Maker: Ambreen powell : 1975 Requested By: PETE PONCE Order Number: [id number] Yoana MD: Anjelica Bonilla MD Measurements Intervals [place] Rate: 61 P: 59 [place]: 182 QRS: 24 QRSD: 90 T: 38 QT: 442 QTc: 447 Interpretive Statements SINUS RHYTHM No previous ECG available for comparison Electronically Signed On 09-28-2024 11:20:04 EST by Anjelica Bonilla MD Preliminary result Narrative: [facility] ED Test Date: 2024-09-28 Pat Name: CAROLINA HIGHTOWER Department: EMERGENCY DEPARTMENT Room: Gender: Female Burrito Maker: Ambreen moyaey : 1975 Requested By: PETE PONCE Order Number: [id number] Reading MD: Measurements Intervals [place] Rate: 61 P: 59 [place]: 182 QRS: 24 QRSD: 90 T: 38 QT: 442 QTc: 447 Interpretive Statements SINUS RHYTHM Consult: Plan: [facility] [place]HECK: Discharge: The pt is awake, alert and stable appearing at time of reevaluation resting comfortably. I spoke with the patient about her ED work up, diagnosis and any further treatmentand to use lactulose 45 ml tid. I discussed the importance of following up with her CENTRIFUGAL CASTING MACHINE OPERATOR and GI. I instructed her to return [...] -- Discharge Instructions Follow up with your CENTRIFUGAL CASTING MACHINE OPERATOR Judie Gill as scheduled on 11/08 at [...] and completely records my words and actions. [facility]-03-[facility]25 Hospital Discharge instructions* Discharge Instructions* Pete Ponce MD - 09/28/2024 12:13 PM EST Follow up with your CENTRIFUGAL CASTING MACHINE OPERATOR Judie Gill as scheduled on 11/08 at 1140 am and follow up with Ange Espinoza. Take the lactulose 45 ml 3x a day and do not miss any doses. documented in this encounterJames [facility]. [facility] Note* Critical Test Results - Jakob Babcock RN - 09/28/2024 11:50 AM EST Carolina Hightower Test Name: plt 42 Results: 09/28/2024 Time: 1148 Received from: lab R/V by: eddie (Required: Attempt notification within 30 minutes or document reason for no notification) Physician: PK 09/28/2024 Time: 1148 Notified: Yes - No orders received [facility]01-03-2025 Miscellaneous Notes* Critical Test Results - Jakob Babcock RN - 09/28/2024 11:50 AM EST Carolina Hightower Test Name: plt 42 Results: 09/28/2024 Time: 1148 Received from: lab R/V by: eddie (Required: Attempt notification within 30 minutes or document reason for no notification) Physician: PK 09/28/2024 Time: 1148 Notified: Yes - No orders received documented in this encounterJames [facility]. [facility] Emergency department Note* Mike Powell CMT - 09/28/2024 10:56 AM EST Finger stick gluc 137. [facility]01-02-2025 History and physical note* Ginger Milton MD [...] fluticasone propionate (FLONASE) 50 mcg/Actuation nasal spray Lynn 50 mcg in each nostril Once Daily. One spray both nostrils daily ferrous sulfate 325 mg (65 mg iron) DR tablet Take 325 mg by mouth Once Daily. topiramate (TOPAMAX) 25 mg Take 25 mg by mouth Once Daily. naloxone (NARCAN) 4 mg/actuation nasal spray Lynn 1 Lynn in nose As directed for 1 dose. [...] Signed: Ginger Milton M.D. 09/27/2024 10:04 AM [facility] Work Phone: 1(918) 878-465201-02-2025 History and physical note* Ginger Milton MD [...] fluticasone propionate (FLONASE) 50 mcg/Actuation nasal spray Lynn 50 mcg in each nostril Once Daily. One spray both nostrils daily ferrous sulfate 325 mg (65 mg iron) DR tablet Take 325 mg by mouth Once Daily. topiramate (TOPAMAX) 25 mg Take 25 mg by mouth Once Daily. naloxone (NARCAN) 4 mg/actuation nasal spray Lynn 1 Lynn in nose As directed for 1 dose. [...] M.D. 09/27/2024 10:04 AM documented in this encounterJames [facility]. [facility] History and physical note* Minda Gómez MD [...] fluticasone propionate (FLONASE) 50 mcg/Actuation nasal spray Lynn 50 mcg in each nostril Once Daily. One spray both nostrils daily ferrous sulfate 325 mg (65 mg iron) DR tablet Take 325 mg by mouth Once Daily. topiramate (TOPAMAX) 25 mg Take 25 mg by mouth Once Daily. naloxone (NARCAN) 4 mg/actuation nasal spray Lynn 1 Lynn in nose As directed for 1 dose. [...] Minda Gómez M.D., MD 09/20/2024 10:10 AM [facility] Work Phone: 1(644) 743-434812-26-2024 History and physical note* Minda Gómez MD [...] fluticasone propionate (FLONASE) 50 mcg/Actuation nasal spray Lynn 50 mcg in each nostril Once Daily. One spray both nostrils daily ferrous sulfate 325 mg (65 mg iron) DR tablet Take 325 mg by mouth Once Daily. topiramate (TOPAMAX) 25 mg Take 25 mg by mouth Once Daily. naloxone (NARCAN) 4 mg/actuation nasal spray Lynn 1 Lynn in nose As directed for 1 dose. [...] Minda Gómez M.D., MD 09/20/2024 10:10 AM documented in this [facility]12-26-2024 Hospital Discharge instructions* Discharge Instructions* Karen tSanton - 09/20/2024 9:38 AM EST Drainage Procedure [...] or rescheduled please call the nurse at [phone]. If you have any questions or concerns about your procedure please call: [phone] or [phone]. These instructions have been explained to me. I understand their content and have received a copy. Sign: Witness: Thank you for choosing [facility] Department documented in this encounterJames [facility]. [facility] Note Procedure: Ultrasound guided therapeutic paracentesis Indication: [...] sonographic guidance using aseptic technique a 6.5 Nauruan merit resolve drainage catheter was placed into [...] Technically successful ultrasound-guided therapeutic paracentesis as above. [facility]12-19-2024 History and physical note* Max Rico MD [...] 20 g 20 g Oral ONE TIME Krunal Padillapat PriceDO20 g at 09/01/24 2150 [COMPLETED] lidocaine [...] fluticasone propionate (FLONASE) 50 mcg/Actuation nasal spray Lynn 50 mcg in each nostril Once Daily. One spray both nostrils daily ferrous sulfate 325 mg (65 mg iron) DR tablet Take 325 mg by mouth Once Daily. topiramate (TOPAMAX) 25 mg Take 25 mg by mouth Once Daily. naloxone (NARCAN) 4 mg/actuation nasal spray Lynn 1 Lynn in nose As directed for 1 dose. [...] Signed: Max Rico MD 09/13/2024 2:31 PM [facility] Work Phone: [phone] 595-772612-19-2024 History and physical note* Max Rico MD [...] 20 g Oral ONE TIME Leah Hector Price, DO20 g at 09/01/24 2150 [COMPLETED] lidocaine [...] fluticasone propionate (FLONASE) 50 mcg/Actuation nasal spray Lynn 50 mcg in each nostril Once Daily. One spray both nostrils daily ferrous sulfate 325 mg (65 mg iron) DR tablet Take 325 mg by mouth Once Daily. topiramate (TOPAMAX) 25 mg Take 25 mg by mouth Once Daily. naloxone (NARCAN) 4 mg/actuation nasal spray Lynn 1 Lynn in nose As directed for 1 dose. [...] MD 09/13/2024 2:31 PM documented in this [facility]12-19-2024 Hospital Discharge instructions* Discharge Instructions* Tiffany Lovett RN - 09/13/2024 1:42 PM EST Discharge Instructions You have had a vascular and/or interventional procedure performed at [facility]. Your procedure was a/an Paracentesis. This procedure [...] Patient received verbal instructions of procedure. {yes no:[id number]} Notes: Instructions have been explained to me. I understand their content and a copy has been given to me. Patient and/or Responsible constitution party Relationship Tiffany Lovett RN 41:42 PM Nurse/Technologist Date/Time documented in this encounterJames B. [facility]12[facility] History and physical note* Minda Gómez - [...] fluticasone propionate (FLONASE) 50 mcg/Actuation nasal spray Lynn 50 mcg in each nostril Once Daily. One spray both nostrils daily ferrous sulfate 325 mg (65 mg iron) DR tablet Take 325 mg by mouth Once Daily. Spironolacton-Hydrochlorothiaz 50-50 mg Tab Take 50 mg by mouth Twice a day. topiramate (TOPAMAX) 25 mg Take 25 mg by mouth Once Daily. naloxone (NARCAN) 4 mg/actuation nasal spray Lynn 1 Lynn in nose As directed for 1 dose. [...] Minda Gómez M.D., MD 08/30/2024 1:30 PM [facility]12-05-2024 History and physical note* Minda Gómez - [...] fluticasone propionate (FLONASE) 50 mcg/Actuation nasal spray Lynn 50 mcg in each nostril Once Daily. One spray both nostrils daily ferrous sulfate 325 mg (65 mg iron) DR tablet Take 325 mg by mouth Once Daily. Spironolacton-Hydrochlorothiaz 50-50 mg Tab Take 50 mg by mouth Twice a day. topiramate (TOPAMAX) 25 mg Take 25 mg by mouth Once Daily. naloxone (NARCAN) 4 mg/actuation nasal spray Lynn 1 Lynn in nose As directed for 1 dose. [...] plan of care. Signed: Minda Gómez M.D., 08/30/2024 1:30 PM documented in this encounterJames B. [facility]12-[facility] Hospital Discharge instructions* Discharge Instructions* Diya Ontiveros RN - 08/30/2024 1:18 PM EST Discharge Instructions You have had a vascular and/or interventional procedure performed at [facility]. Your procedure was a/an paracentesis. This procedure [...] may call the radiologist (X-Ray Physician) at [phone]. Transportation home: Travel time should be less than 1 hour to a medical facility, in case a delayed complication shouldoccur. Patient teaching: Patient received a procedure educational sheet. yes Patient received verbal instructions of procedure. yes Notes: Instructions have been explained to me. I understand their content and a copy has been given to me. Patient and/or Responsible constitution party Relationship Diya Ontiveros RN 41:18 PM Nurse/Technologist Date/Time * Attachments The following attachments cannot be sent through Care Everywhere. * Ascites (Discharge Care) (Czech) * Paracentesis (Discharge Care) (Czech) documented in this encounterJames B. [facility]11-27-[facility] Note Procedure: Ultrasound guided therapeutic paracentesis Indication: [...] sonographic guidance using aseptic technique a 6.5 Nauruan merit resolve drainage catheter was placed into [...] Technically successful ultrasound-guided therapeutic paracentesis as above. [facility]11-27-[facility]24 History and physical note* Max Rico MD [...] fluticasone propionate (FLONASE) 50 mcg/Actuation nasal spray Lynn 50 mcg in each nostril Once Daily. One spray both nostrils daily ferrous sulfate 325 mg (65 mg iron) DR tablet Take 325 mg by mouth Once Daily. Spironolacton-Hydrochlorothiaz 50-50 mg Tab Take 50 mg by mouth Twice a day. topiramate (TOPAMAX) 25 mg Take 25 mg by mouth Once Daily. naloxone (NARCAN) 4 mg/actuation nasal spray Lynn 1 Lynn in nose As directed for 1 dose. [...] Signed: Max Rico MD 08/22/2024 12:46 PM [facility] Work Phone: [phone] 109-328411-27-2024 History and physical note* Max Rico MD [...] fluticasone propionate (FLONASE) 50 mcg/Actuation nasal spray Lynn 50 mcg in each nostril Once Daily. One spray both nostrils daily ferrous sulfate 325 mg (65 mg iron) DR tablet Take 325 mg by mouth Once Daily. Spironolacton-Hydrochlorothiaz 50-50 mg Tab Take 50 mg by mouth Twice a day. topiramate (TOPAMAX) 25 mg Take 25 mg by mouth Once Daily. naloxone (NARCAN) 4 mg/actuation nasal spray Lynn 1 Lynn in nose As directed for 1 dose. [...] 08/22/2024 12:46 PM documented in this [facility]11-27-2024 Hospital Discharge instructions* Discharge Instructions* Mike Horner [...] or rescheduled please call the nurse at [phone]. If you have any questions or concerns about your procedure please call: [phone] or [phone]. These instructions have been explained to me. I understand their content and have received a copy. Sign: Witness: Thank you for choosing [facility] V[facility] and Interventional Department documented in this encounterJames [facility]. [facility] History and physical note* Ginger Milton MD [...] PRMinda Lima MD 12.5 g at 07/19/24 1708 Current [...] fluticasone propionate (FLONASE) 50 mcg/Actuation nasal spray Lynn 50 mcg in each nostril Once Daily. One spray both nostrils daily ferrous sulfate 325 mg (65 mg iron) DR tablet Take 325 mg by mouth Once Daily. Spironolacton-Hydrochlorothiaz 50-50 mg Tab Take 50 mg by mouth Twice a day. topiramate (TOPAMAX) 25 mg Take 25 mg by mouth Once Daily. naloxone (NARCAN) 4 mg/actuation nasal spray Lynn 1 Lynn in nose As directed for 1 dose. [...] Signed: Ginger Milton M.D. 08/16/2024 1:20 PM [facility] Work Phone: [phone] 446-292011-21-2024 History and physical note* Ginger Milton MD [...] fluticasone propionate (FLONASE) 50 mcg/Actuation nasal spray Lynn 50 mcg in each nostril Once Daily. One spray both nostrils daily ferrous sulfate 325 mg (65 mg iron) DR tablet Take 325 mg by mouth Once Daily. Spironolacton-Hydrochlorothiaz 50-50 mg Tab Take 50 mg by mouth Twice a day. topiramate (TOPAMAX) 25 mg Take 25 mg by mouth Once Daily. naloxone (NARCAN) 4 mg/actuation nasal spray Lynn 1 Lynn in nose As directed for 1 dose. [...] 08/16/2024 1:20 PM documented in this [facility]11-21-2024 Hospital Discharge instructions* Discharge Instructions* Luci Victoria [...] or rescheduled please call the nurse at [phone]. If you have any questions or concerns about your procedure please call: [phone] or [phone]. These instructions have been explained to me. I understand their content and have received a copy. Sign: Witness: Thank you for choosing [facility] Vascular and Interventional Department documented in this encounterJames [facility]. [facility] Discharge instructions* Discharge Instructions* Mike Horner [...] or rescheduled please call the nurse at [phone]. If you have any questions or concerns about your procedure please call: [phone] or [phone]. These instructions have been explained to me. I understand their content and have received a copy. Sign: Witness: Thank you for choosing [facility] Vascular and Interventional Department documented in this encounterJames B. [facility]11[facility] History and physical note* Minda Gómez MD [...] fluticasone propionate (FLONASE) 50 mcg/Actuation nasal spray Lynn 50 mcg in each nostril Once Daily. One spray both nostrils daily ferrous sulfate 325 mg (65 mg iron) DR tablet Take 325 mg by mouth Once Daily. Spironolacton-Hydrochlorothiaz 50-50 mg Tab Take 50 mg by mouth Twice a day. topiramate (TOPAMAX) 25 mg Take 25 mg by mouth Once Daily. naloxone (NARCAN) 4 mg/actuation nasal spray Lynn 1 Lynn in nose As directed for 1 dose. [...] Minda Gómez M.D., MD 08/09/2024 1:26 PM [facility] Work Phone: 1([phone]) 446-835711-14-2024 History and physical note* Minda Gómez MD [...] albumin human 25 % vial ONE TIME Minda Davila MD 12.5 g at 07/19/24 1708 Current [...] fluticasone propionate (FLONASE) 50 mcg/Actuation nasal spray Lynn 50 mcg in each nostril Once Daily. One spray both nostrils daily ferrous sulfate 325 mg (65 mg iron) DR tablet Take 325 mg by mouth Once Daily. Spironolacton-Hydrochlorothiaz 50-50 mg Tab Take 50 mg by mouth Twice a day. topiramate (TOPAMAX) 25 mg Take 25 mg by mouth Once Daily. naloxone (NARCAN) 4 mg/actuation nasal spray Lynn 1 Lynn in nose As directed for 1 dose. [...] 08/09/2024 1:26 PM documented in this [facility]11-07-2024 History and physical note* Ginger Milton MD [...] 25 mg 25 mg Oral ONE TIME Abelino New MD 25 mg at 07/09/24 0302 [COMPLETED] lidocaine (preservative free) 10 mg/mL (1 %) injection ONE TIME PRN Ginger Milton MD 10 mL at 07/09/24 0833 [COMPLETED] albumin human 25 % vial ONE TIME PRN Ginger Milton MD 37.5 g at 07/09/24 0909 [COMPLETED] morphine injection 4 mg 4 mg Intravenous ONE TIME Lambert Christie DO 4 mg at 07/08/24 192 [COMPLETED] ondansetron hcl (PF) (ZOFRAN) injection 4 mg 4 mg Intravenous ONE TIME Lambert Christie DO 4 mg at 07/08/24 192 Current Outpatient Medications on File Prior to [...] fluticasone propionate (FLONASE) 50 mcg/Actuation nasal spray Lynn 50 mcg in each nostril Once Daily. One spray both nostrils daily ferrous sulfate 325 mg (65 mg iron) DR tablet Take 325 mg by mouth Once Daily. Spironolacton-Hydrochlorothiaz 50-50 mg Tab Take 50 mg by mouth Twice a day. topiramate (TOPAMAX) 25 mg Take 25 mg by mouth Once Daily. naloxone (NARCAN) 4 mg/actuation nasal spray Lynn 1 Lynn in nose As directed for 1 dose. [...] Signed: Ginger Milton M.D. 08/02/2024 2:59 PM [facility] Work Phone: 1(947) 492-445111-07-2024 History and physical note* Ginger Milton MD [...] 25 mg 25 mg Oral ONE TIME Abelino New MD 25 mg at 07/09/24 0302 [COMPLETED] lidocaine (preservative free) 10 mg/mL (1 %) injection ONE TIME PRN Ginger Milton MD 10 mL at 07/09/24 0833 [COMPLETED] albumin human 25 % vial ONE TIME PRN Ginger Milton MD 37.5 g at 07/09/24 0909 [COMPLETED] morphine injection 4 mg 4 mg Intravenous ONE TIME Lambert Christie DO 4 mg at 07/08/24 192 [COMPLETED] ondansetron hcl (PF) (ZOFRAN) injection 4 mg 4 mg Intravenous ONE TIME Lambert Christie DO 4 mg at 07/08/241922 Current Outpatient [...] fluticasone propionate (FLONASE) 50 mcg/Actuation nasal spray Lynn 50 mcg in each nostril Once Daily. One spray both nostrils daily ferrous sulfate 325 mg (65 mg iron) DR tablet Take 325 mg by mouth Once Daily. Spironolacton-Hydrochlorothiaz 50-50 mg Tab Take 50 mg by mouth Twice a day. topiramate (TOPAMAX) 25 mg Take 25 mg by mouth Once Daily. naloxone (NARCAN) 4 mg/actuation nasal spray Lynn 1 Lynn in nose As directed for 1 dose. [...] 08/02/2024 2:59 PM documented in this [facility]11-07-2024 Hospital Discharge instructions* Discharge Instructions* Mike Horner [...] or rescheduled please call the nurse at [phone]. If you have any questions or concerns about your procedure please call: [phone] or [phone]. These instructions have been explained to me. I understand their content and have received a copy. Sign: Witness: Thank you for choosing [facility] Vascular and Interventional Department documented in this [facility] Emergency department Note* Davy Isaacs RN - 07/26/2024 5:11 PM EDT Discharge instructions and education provided at this time. Patient verbalizes understanding of discharge instructions and education. IV access removed. Follow up care and instructions reviewed with patient. No complaints noted at this time. VSS. Pt declines wheelchair and ambulated out of ED at this time to lobby to wait on ride [facility]10-31-2024 Emergency department Note* Davy Isaacs RN - [...] - 07/26/2024 3:48 PM EDT Report to [facility] in IR * Pete Ponce MD - 07/26/2024 12:52 PM EDT Carolina Hightower [[id number]] (F) - 48 y.o. Note Creation:07/26/2024 Encounter Date:07/26/2024 History Chief Complaint Patient presents with Abdominal Pain Swelling Carolina Hightower is a 48 y.o. female with hx of ascites, hep C, cirrhosis who presents to the ED via PV with c/o abdominal swelling and associated pain that began several days ago. Per chart review, pt had paracentesis on 07/[address] Gómez. Pt states "this is the biggest I have ever been.". 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 She deniesfever, chills, CP, [...] Paracentesis performed by Max Rico MD at [facility] PARACENTESIS N/A 07/09/2024 Paracentesis performed by Ginger Milton MD at [facility] PARACENTESIS N/A 07/19/2024 Paracentesis performed by Minda Gómez MD at [facility] ULTRASOUND GUIDANCE N/A 07/02/2024 Ultrasound Guidance performed by Max Rico MD at [facility] ULTRASOUND GUIDANCE N/A 07/09/2024 Ultrasound Guidance performed by Ginger Milton MD at [facility] ULTRASOUND GUIDANCE N/A 07/19/2024 Ultrasound Guidance performed by Minda Gómez MD at [facility] No family history on file. [...] fluticasone propionate (FLONASE) 50 mcg/Actuation nasal spray Lynn 50 mcg in each nostril Once Daily. One spray both nostrils daily ferrous sulfate 325 mg (65 mg iron) DR tablet Take 325 mg by mouth Once Daily. Spironolacton-Hydrochlorothiaz 50-50 mg Tab Take 50 mg by mouth Twice a day. topiramate (TOPAMAX) 25 mg Take 25 mg by mouth Once Daily. naloxone (NARCAN) 4 mg/actuation nasal spray Lynn 1 Lynn in nose As directed for 1 dose. [...] 25.5 - 35.9 s Results None Plan: [facility] [place]: Discharge: The pt is awake, alert and STABLE appearing at time of reevaluation. I spoke with the patient about her ED work up, diagnosis and any further treatment. I discussed the importance of following up on 07/27 at 1030 am with Jhonatan Banda NP at the [facility]. Iinstructed her to return to the Emergency [...] am with Jhonatan Banda NP at the [facility]. Discharge References/Attachments Cirrhosis of the Liver (AfterCare(R) Instructions(ER/ED)) (Czech) Scribe Attestation: I, Gigi Isaacs, am acting [...] PM EDT Patient to room 27 from [facility] at this time. documented in this encounterJames [facility]. [facility] Note Procedure: Ultrasound guided therapeutic paracentesis Indication: [...] sonographic guidance using aseptic technique a 6.5 Nauruan merit resolve drainage catheter was placed into [...] Technically successful ultrasound-guided therapeutic paracentesis as above. [facility]10[facility] Emergency department Note* Davy Isaacs RN - 07/26/2024 4:14 PM EDT Pt to IR. [facility]10[facility] Emergency department Note* Davy Isaacs RN - 07/26/2024 3:48 PM EDT Report to [facility] in IR [facility]10[facility] Hospital Discharge instructions* Discharge Instructions* Gigi Isaacs - 07/26/2024 1:31 PM EDT Follow up as scheduled on 07/27 at 1030 am with Jhonatan Banda NP at the [facility]. * Attachments The following attachments cannot be sent through Care Everywhere. * Cirrhosis of the Liver (AfterCare(R) Instructions(ER/ED)) (Czech) documented in this encounterJames [facility]. [facility]10-[facility] Physician Emergency department Note* Pete Ponce MD - 07/26/2024 12:52 PM EDT Carolina Hightower [[id number]] (F) - 48 y.o. Note Creation:07/26/2024 Encounter Date:07/26/2024 History Chief Complaint Patient presents with Abdominal Pain Swelling Carolina Hightower is a 48 y.o. female with hx of ascites, hep C, cirrhosis who presents to the ED via PV with c/o abdominal swelling and associated pain that began several days ago. Per chart review, pt had paracentesis on 07/[address] Gómez. Pt states "this is the biggest I have ever been.". 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 She deniesfever, chills, CP, [...] Paracentesis performed by Max Rico MD at [facility] PARACENTESIS N/A 07/09/2024 Paracentesis performed by Ginger Milton MD at [facility] PARACENTESIS N/A 07/19/2024 Paracentesis performed by Minda Gómez MD at [facility] ULTRASOUND GUIDANCE N/A 07/02/2024 Ultrasound Guidance performed by Max Rico MD at [facility] ULTRASOUND GUIDANCE N/A 07/09/2024 Ultrasound Guidance performed by Ginger Milton MD at [facility] ULTRASOUND GUIDANCE N/A 07/19/2024 Ultrasound Guidance performed by Minda Gómez MD at [facility] No family history on file. [...] fluticasone propionate (FLONASE) 50 mcg/Actuation nasal spray Lynn 50 mcg in each nostril Once Daily. One spray both nostrils daily ferrous sulfate 325 mg (65 mg iron) DR tablet Take 325 mg by mouth Once Daily. Spironolacton-Hydrochlorothiaz 50-50 mg Tab Take 50 mg by mouth Twice a day. topiramate (TOPAMAX) 25 mg Take 25 mg by mouth Once Daily. naloxone (NARCAN) 4 mg/actuation nasal spray Lynn 1 Lynn in nose As directed for 1 dose. [...] 25.5 - 35.9 s Results None Plan: [facility] [place]: Discharge: The pt is awake, alert and STABLE appearing at time of reevaluation. I spoke with the patient about her ED work up, diagnosis and any further treatment. I discussed the importance of following up on 07/27 at 1030 am with Jhonatan Banda NP at the [facility]. Iinstructed her to return to the Emergency [...] am with Jhonatan Banda NP at the [facility]. Discharge References/Attachments Cirrhosis of the Liver (AfterCare(R) Instructions(ER/ED)) (Czech) Scribe Attestation: I, Gigi Isaacs, am acting as scribe for and in the presence of Pete Ponce MD. Electronically Signed By Gigi Isaacs 07/26/24 12:55 PM Provider Attestation: I personally performed the services described in the documentation, reviewed the documentation recorded by the scribe in my presence and it accurately and completely records my words and actions. [facility] Emergency department Note* Davy Isaacs RN - 07/26/2024 12:31 PM EDT Assumed care of pt. Pt presented to ED with complaints of abdominal swelling. Pt reports she has abdominal swelling and pain, has been more swollen than she has been in the past with this issue. NADN, AOX3, side rails up X2, call light in reach [facility]10[facility] Emergency department Note* Kemal Thao RN - 07/26/2024 12:15 PM EDT Patient to room 27 from [facility] at this time. [facility]10-24-2024 Hospital Discharge instructions* Discharge Instructions* Luci Victoria [...] or rescheduled please call the nurse at [phone]. If you have any questions or concerns about your procedure please call: [phone] or [phone]. These instructions have been explained to me. I understand their content and have received a copy. Sign: Witness: Thank you for choosing [facility] Vascular and Interventional Department * Attachments The following attachments cannot be sent through Care Everywhere. * Liver Disease Diet (Compressor Mechanic Bus) (Czech) documented in this encounterJames B. [facility]10-[facility] History and physical note* Minda Gómez MD [...] 25 mg 25 mg Oral ONE TIME Abelino New MD 25 mg at 07/09/24 0302 [COMPLETED] lidocaine (preservative free) 10 mg/mL (1 %) injection ONE TIME PRN Ginger Milotn MD 10 mL at 07/09/24 0833 [COMPLETED] albumin human 25 % vial ONE TIME PRN Ginger Milton MD 37.5 g at 07/09/24 0909 [COMPLETED] morphine injection 4 mg 4 mg Intravenous ONE TIME Lambert Christie DO 4 mg at 07/08/24 192 [COMPLETED] ondansetron hcl (PF) (ZOFRAN) injection 4 mg 4 mg Intravenous ONE TIME Lambert Christie DO 4 mg at 07/08/24 1923 [COMPLETED] lidocaine (preservative free) 20 mg/mL (2 %) injection ONE TIME PRMax Mcclendon MD 7mL at 07/02/24 1318 [COMPLETED] albumin human 25 % vial ONE TIME PRMax Mcclendon MD 37.5 g at 07/02/24 1401 Current [...] fluticasone propionate (FLONASE) 50 mcg/Actuation nasal spray Lynn 50 mcg in each nostril Once Daily. One spray both nostrils daily ferrous sulfate 325 mg (65 mg iron) DR tablet Take 325 mg by mouth Once Daily. Spironolacton-Hydrochlorothiaz 50-50 mg Tab Take 50 mg by mouth Twice a day. topiramate (TOPAMAX) 25 mg Take 25 mg by mouth Once Daily. naloxone (NARCAN) 4 mg/actuation nasal spray Lynn 1 Lynn in nose As directed for 1 dose. [...] Minda Gómez M.D., MD 07/19/2024 3:55 PM [facility] Work Phone: 1(120) 604-914110-24-2024 History and physical note* Minda Gómez MD [...] 25 mg 25 mg Oral ONE TIME Abelino New MD 25 mg at 07/09/24 0302 [COMPLETED] lidocaine (preservative free) 10 mg/mL (1 %) injection ONE TIME PRN Ginger Milton MD 10 mL at 07/09/24 0833 [COMPLETED] albumin human 25 % vial ONE TIME PRN Ginger Milton MD 37.5 g at 07/09/24 0909 [COMPLETED] morphine injection 4 mg 4 mg Intravenous ONE TIME Lambert Christie DO 4 mg at 07/08/24 192 [COMPLETED] ondansetron hcl (PF) (ZOFRAN) injection 4 mg 4 mg Intravenous ONE TIME Lambert Christie DO 4 mg at 07/08/24 192 [COMPLETED] lidocaine (preservative free) 20 mg/mL (2 [...] fluticasone propionate (FLONASE) 50 mcg/Actuation nasal spray Lynn 50 mcg in each nostril Once Daily. One spray both nostrils daily ferrous sulfate 325 mg (65 mg iron) DR tablet Take 325 mg by mouth Once Daily. Spironolacton-Hydrochlorothiaz 50-50 mg Tab Take 50 mg by mouth Twice a day. topiramate (TOPAMAX) 25 mg Take 25 mg by mouth Once Daily. naloxone (NARCAN) 4 mg/actuation nasal spray Lynn 1 Lynn in nose As directed for 1 dose. [...] 07/19/2024 3:55 PM documented in this [facility]10-15-2024 Hospital course Narrative* Tod Son, - 07/10/2024 2:50 PM EDT Physician Discharge [...] patient prescribing narcan. Plan to return [facility]. Paracentesisfluid culture without organism growth therefore able to stop antibiotics prior to discharge. Consults to: wellness recovery, interventional radiology Disposition: home Discharge Condition: good Discharge Medications: Discharge Medication List as of 07/10/2024 12:09 PM START taking these medications Details naloxone (NARCAN) 4 mg/actuation nasal spray Lynn 1 Lynn in nose As directed for 1 dose. [...] fluticasone propionate (FLONASE) 50 mcg/Actuation nasal spray Lynn 50 mcg in each nostril Once Daily. [...] Tod Son DO 07/10/2024 documented in this [facility]10-15-2024 History of Present illness Narrative* [...] PM EDT Spoke with Brandi from the [facility] to notify them patient is being discharged [...] so I could help her she yells "Go to hell and get out of my room I don"t want your help."Nurse told patient to use call light if she needed assistance. * Tod Son DO - 07/09/2024 6:06 PM EDT [facility] MEDICINE PROGRESS NOTE Patient: Carolina Hightower Room: 4D189/6B157A Admit Date: 07/08/2024 Hospital Day: LOS: 0 [...] source Oral, resp. rate 20, height 5' 2" (157.5 cm), weight 77.9 kg (171 lb [...] 07/09/2024 11:44 AM EDT Attempted to contact [facility] for dcp. No answer at this time. Notified Wellness SW of possible dc tomorrow. AYDIN AguirreW, SAFETY CONSULTANT Tax Commissioner * Kraig Fernando LPN - 07/09/2024 10:22 AM EDT Called [facility] at [phone] spoke to [facility] for medication verification, stated she would send to nurse for that information. Fax number provided. * Kraig Fernando LPN - 07/09/2024 9:35 AM EDT Pt in room from procedure. A/Ox3. NAD noted. Site on right side clean dry. No drainage noted. IV site saline locked. No redness or swelling noted. Pt states no needs at this time. * Yumiko Rivas RN - 07/09/2024 3:47 AM EDT Pt arrived to 4D189. Pt is AOx3. No signs of distress noted. Pt states she is having anxiety from being in ER for 12 hours. She is a resident at [facility] in [place], [place]. Pt is unable to state what medications she takes, attempted to call the facility but no answer. Will attempt to call facility in the morning. Bed in lowest locked position, call light within reach. Will continue to monitor. * Mary Ellen Chino RN - 07/09/2024 3:29 AM EDT ADMISSION CHART CHECK COMPLETE. documented in this encounterJames [facility]. [facility]10[facility] Note* Care Plan Note - Clifford Archuleta, [...] 5. Place patient in appropriate isolation 07/10/2024 141 by Clifford Archuleta RN Outcome: Adequate for Discharge 07/10/2024 141 by Clifford Archuleta RN Outcome: Adequate for Discharge 07/10/2024 141 by Clifford Archuleta RN Outcome: Ongoing Problem: Nutrition Deficit Goal: Adequate nutritional intake Description: Interventions: -Consult to financial services officer -Intake and output measurement -Calorie count if [...] management - Intermittent pneumatic compression management. 07/10/2024 1415 by Clifford Archuleta RN Outcome: Adequate for Discharge 07/10/2024 1413 by Clifford Archuleta RN Outcome: Adequate for Discharge 07/10/2024 1413 by Clifford Archuleta RN Outcome: Ongoing Goal: Knowledge of deep venous thrombosis Description: Interventions: - Education, deep venous thrombosis signs and symptoms - Education, ambulation - Education, graduated anti-embolic stockings - Education, deep venous thrombosis prophalaxis 07/10/2024 1415 by Clifford Archuleta RN Outcome: Adequate for Discharge 07/10/2024 1413 by Clifford Archuleta RN Outcome: Adequate for Discharge 07/10/2024 1413 by Clifford Archuleta RN Outcome: Ongoing [facility] Miscellaneous Notes* Care Plan Note - Clifford [...] call provider 6. Education, discharge diet 07/10/2024 1415 by Clifford Archuleta RN Outcome: Adequate for Discharge 07/10/2024 141 by Clifford Archuleta RN Outcome: Adequate for Discharge 07/10/2024 141 by Clifford Archuleta RN Outcome: Ongoing Problem: Activity Intolerance Goal: Improved activity tolerance Description: Interventions: 1. Education, prescribed activity level 2. Progressive ambulation program 07/10/2024 1415 by Clifford Archuleta RN Outcome: [...] patient in appropriate isolation 07/10/2024 1415 by Clifford Archuleta RN Outcome: Adequate for Discharge 07/10/2024 1413 by Clifford Archuleta RN Outcome: Adequate for Discharge 07/10/2024 1413 by Clifford Archuleta RN Outcome: Ongoing Problem: Nutrition Deficit Goal: Adequate nutritional intake Description: Interventions: -Consult to financial services officer -Intake and output measurement -Calorie count if [...] - Education, deep venous thrombosis prophalaxis 07/10/2024 1415 by Clifford Archuleta RN Outcome: Adequate for Discharge 07/10/2024 1413 by Clifford Archuleta RN Outcome: Adequate for Discharge 07/10/2024 1413 by Clifford Archuleta RN Outcome: Ongoing * [...] Adequate nutritional intake Description: Interventions: -Consult to financial services officer -Intake and output measurement -Calorie count if indicated 07/10/20241412 by Clifford Archuleta RN Outcome: Adequate for Discharge 07/10/20241412 by Clifford Archuleta RN Outcome: Ongoing Goal: Body weight within specified parameters Description: Interventions: - Body weight measurement 07/10/20241412 by Clifford Archuleta RN Outcome: Adequate for Discharge 07/10/20241412 by Clfiford Archuleta RN Outcome: Ongoing Problem: Pain, Acute [...] every 2 hours if decreased mobility 07/10/2024 1413 by Clifford Archuleta RN Outcome: [...] Adequate nutritional intake Description: Interventions: -Consult to financial services officer -Intake and output measurement -Calorie count if [...] Totals Intake/Output 07/09/24 0700 - 07/10/24 [phone] Total Intake P.O. 2032 480 2512 I.V. 11 -- 11 Blood [...] Abnormalities N/A Labs No results found for: "FUNCTIONAL", "PLTAGGREG" Lab Results Component Value Date RBC 3.20 [...] Diuretics SDOH Screen Assessed? Completed Discharge Planning [facility] Expected Discharge Date Education Provided Other (Comment) [...] 07/09/24 0659 07/09/24 0700 - 07/10/24 [phone] Total 6704-7766 7839-9783 Total Intake P.O. -- 793 068 9421 -- 2031 I.V. -- 0 0 11 -- 11 Blood -- 0 0 0 -- 0 Other -- 0 0 0 -- 0 Total Intake -- 244 628 7838 -- 2042 Output Urine -- 0 0 0 -- [...] Abnormalities N/A Labs No results found for: "FUNCTIONAL", "PLTAGGREG" Lab Results Component Value Date RBC 3.77 [...] Diuretics SDOH Screen Assessed? Completed Discharge Planning [facility] Expected Discharge Date Education Provided Other (Comment) N/A * Care Plan Note - Bozena Kline - 07/09/2024 2:46 PM EDT SW DISCHARGE/TREATMENT PLAN: 07/09/24 [address] return to the [facility] at discharge with facility for transportation. Report not needed. [facility] requests Brandi Barnes be contact to arrange transportation on dayof discharge @ [phone] Wellness is following SW will remain following AYDIN AguirreW, SAFETY CONSULTANT Tax Commissioner * Handoff Documentation - Kraig Fernando LPN - 07/09/2024 7:00 AM EDT Received report from NASH Lu. * End of Shift Note - Yumiko Rivas RN - 07/09/2024 6:15 AM EDT Nursing End of Shift Summary Pertinent changes to patient conditions and/or care this shift: pt new admit this shift. Vital Signs Weight: 77.9 kg (171 lb 11.2 oz) (07/09/249) Temp: 98 F (36.7 C) Temp Source: Oral Heart Rate:61 BP: 125/85 Respirations: 20 Oxygen Saturation SpO2: 100 % O2 Delivery: Room air O2 Device: None (Room air) Incentive Spirometry Diet Diet Cardiac; Intake/Output Totals Intake/Output 07/08/24 0700 - 07/09/24 [phone] 2161-2272 Total Intake P.O. -- 960 960 I.V. [...] Abnormalities No Labs No results found for: "FUNCTIONAL", "PLTAGGREG" Lab Results Component Value Date RBC 3.77 [...] Diuretics SDOH Screen Assessed? Completed Discharge Planning [facility] Expected Discharge Date Education Provided Other (Comment) fall risks * Care Plan Note - Yumiko Rivas, RN - 07/09/2024 6:15 AM EDT Problem: [...] Adequate nutritional intake Description: Interventions: -Consult to financial services officer -Intake and output measurement -Calorie count if [...] - Education, pain scale 07/09/2024614 by Yumiko Rivas RN Outcome: Ongoing 07/09/2024613 by Yumiko Rivas, NASH Outcome: Ongoing Problem: Skin Integrity, Impaired, Risk [...] Rivas, RN Outcome: Ongoing documented in this [facility]10-15-2024 Note* Care Plan Note - Clifford Archuleta RN [...] Adequate nutritional intake Description: Interventions: -Consult to financial services officer -Intake and output measurement -Calorie count if [...] - Education, deep venous thrombosis prophalaxis 07/10/2024 1413 by Clifford Archuleta RN Outcome: Adequate for Discharge 07/10/2024 1413 by Clifford Archuleta RN Outcome: Ongoing [facility] Note* Handoff Documentation - Nita Anne RN [...] time. Environmental scans complete for pt safety. [facility] Note* Care Plan Note - Rachel Ronquillo [...] Adequate nutritional intake Description: Interventions: -Consult to financial services officer -Intake and output measurement -Calorie count if [...] Education, deep venous thrombosis prophalaxis Outcome: Ongoing [facility] Note* End of Shift Note - Rachel [...] Totals Intake/Output 07/09/24 0700 - 07/10/24 0659 [phone] 0260-3965 Total Intake P.O. 2031 480 2512 I.V. [...] Abnormalities N/A Labs No results found for: "FUNCTIONAL", "PLTAGGREG" Lab Results Component Value Date RBC 3.20 [...] Diuretics SDOH Screen Assessed? Completed Discharge Planning [facility] Expected Discharge Date Education Provided Other (Comment) medication importance. [facility] Note* Handoff Documentation - Rachel Ronquillo RN - 07/09/2024 7:58 PM EDT Took over care of the patient from Drea CAO.Patient resting in bed. Fall precautions in place. No distress noted. Call light within reach. Complete environmental scan/screen at this time to ensure patient safety. Will continue to monitor. [facility] Note* Handoff Documentation - Nita Anne RN [...] time. Environmental scans complete for pt safety. [facility] Note* End of Shift Note - Kraig Fernando LPN - 07/09/2024 6:45 PM EDT Nursing End of Shift Summary Pertinent changes to patient conditions and/or care this shift: 4400 removed from Para, Vital Signs Weight: 77.9 kg (171 lb 11.2 oz) (07/09/24 0229) Temp: 97.9 F (36.6 C) Temp Source: Oral Heart Rate:70 BP: 120/70 Respirations: 20 Oxygen Saturation SpO2: 99 % O2 Delivery: Room air O2 Device: None (Room air) Incentive Spirometry Incentive Spirometry: No Diet Diet Cardiac; Intake/Output Totals Intake/Output 07/08/24 0700 - 07/09/24 0659 07/09/24 0700 - 07/10/24 [phone] 3295-1813 Total 5275-9784 Total Intake P.O. -- 515 337 3777 -- 2031 I.V. -- 0 0 11 -- 11 Blood -- 0 0 0 -- 0 Other -- 0 0 0 -- 0 Total Intake -- 343 983 7136 -- 2042 Output Urine -- 0 0 0 -- [...] Abnormalities N/A Labs No results found for: "FUNCTIONAL", "PLTAGGREG" Lab Results Component Value Date RBC 3.77 [...] Diuretics SDOH Screen Assessed? Com[facility] Expected Discharge Date Education Provided Other (Comment) N/A [facility]10-14-2024 Consult note* Oscar Sylvester LCSW - 07/09/2024 4:25 PM EDTAssociated Order(s): IP CONSULT TO WELLNESS RECOVERY SOCIAL WORK SW attempted to speak with patient. After SW identified himself and what I was there to assess, sherefused to discuss and stated" I am so tired of talking about this shit". [facility] Work Phone: [phone] Consult note* Oscar Sylvester LCSW - 07/09/2024 4:25 PM EDTAssociated Order(s): IP CONSULT TO WELLNESS RECOVERY SOCIAL WORK SW attempted to speak with patient. After SW identified himself and what I was there to assess, sherefused to discuss and stated" I am so tired of talking about this shit". * Bozena Kline - 07/09/2024 2:42 PM EDTAssociated Order(s): IP CONSULT TO SOCIAL WORK; IP CONSULT TO SOCIAL WORK SOCIAL WORK ASSESSMENT CARE HOME/PERSONAL CARE/ASSISTED LIVING/REHABILITATION RESIDENT DATE: 07/09/24 NAME: Carolina [...] further evaluation FACILITY NAME AND CONTACT INFO: [facility] [phone] ([facility]) PAYOR SOURCE/LOC/BED HOLD: [employer], [employer] [place] Medicaid * Is insurance pre-cert required before return: No * Does a new PASRR need completed prior to return: No SPECIALTY SERVICES/CARE CAGE SUPERVISOR : SUPPORT SYSTEM: Staff at [facility] MEDICAL HISTORY: Past Medical History: Diagnosis Date Ascites Chronic hepatitis C virus infection (CMS/HCC) Cirrhosis (CMS/HCC) DISCUSSION & INTERVENTION: Pt plans to return to [facility] [place] SHELL confirmed [place] able to return [place]. Advised by [facility] to contact Brandi Barnes for transportation [phone] DISPOSITION/NEXT STEPS: SW DISCHARGE/TREATMENT PLAN: 07/09/[address] return to the [facility] at discharge with facility for transportation. Report not needed. [facility] requests Brandi Barnes be contact to arrange transportation on dayof discharge @ [phone] Wellness is following SW will remain following VIV Aguirre, SAFETY CONSULTANT Tax Commissioner * Elisa Cross NP - 07/09/2024 2:01 PM EDTAssociated Order(s): IP CONSULT TO WELLNESS RECOVERY HEAT TREAT TECHNICIAN SUBSTANCE USE CONSULTATION DATE OF ADMISSION: 07/08/2024 DATE OF SERVICE: 07/09/2024 LOS: 0 ATTENDING PROVIDER Tod Cohn, IDENTIFYING DATA: This was a 48 y.o. female who presently resides Other [facility] rehab, [place] [address]. The patient was admitted to the 4D189/4K364X due to Transfer Report Alcoholic cirrhosis of [...] Pt states she wishes to return to [facility] at d/c. Will check with facility on d/c requirements for readmission acceptance, wellness manager social media to work closely with facility on needs.Pr [...] fluticasone propionate (FLONASE) 50 mcg/Actuation nasal spray Lynn 50 mcg in each nostril Once Daily. [...] 35.0 07/09/2024415 MCV 92.8 07/09/2024415 MCH 32.6 07/09/20246 MCHC 35.1 07/09/20246 RDW 17.9 07/09/2024415 MPV 9.6 07/09/2024415 PLATELETCNT 83 07/09/20246 CMP: Lab Results Component Value Date/Time SODIUM [...] treatment - would like to return to [facility] [place], [place]- Wellness SW assisting with D/Cplanning. Dangers of polysubstance abuse were discussed with the patient to include but not limited to the risk of overdose and . Patient verbalized adequate understanding. Narcan RX provided as well as administration education CBT/CL: Recommend Counseling/Behavioral modification program with group and IC and peer support counseling sessions ACCOUNTING RECONCILIATION CLERK and flight service specialist following patient and assisting with d/c planning. as well as working with Nurse division manager for socioeconomic needs. The patient was given a substance abuse resource list which includes inpatient and outpatient rehabilitation programs in [place], [place], and [place]. Advised to establish care with PCP Thank you for consult. Please consult or contact [facility] with any questions. Signed: Elisa Cross NP 07/09/2024 2:01 PM Associated attestation - Jessie Victor MD - 07/10/2024 3:09 PM EDT Signed: Jessie Victor MD 07/10/2024 3:09 PM * Charly Vaz APSS - 07/09/2024 1:45 PM EDTAssociated Order(s): IP CONSULT TO WELLNESS RECOVERY USER EXPERIENCE ARCHITECT New Peer Support Consult Presenting Problem: Patient [...] she just started being seen at [facility] in [facility] [place] and will continue to follow up there. [...] Physician: River Arguelles MD Reason for Consultation: "ascites and need tap. Scheduled for next Tuesday but having severe pain issues." I have reviewed the chart. Impression: s/p abdominal pain and paracentesis 07/09/[address] Milton. Please see consult note dated 07/09/2024 and procedure note for further details. Recommendation: Procedure complete, thank you for the consult. We will sign off. Please reconsult PRN. Signed: Namrata HIRO Lozano 07/09/2024 10:48 AM Associated attestation - Ginger Milton MD - 07/09/2024 5:10 PM EDT Agree with HEAT TREAT TECHNICIAN note * Ginger Milton MD - 07/09/2024 [...] Strickland MD 37.5 g at 07/02/24 1401 No [...] M.D. 07/09/2024 7:51 AM documented in this encounterJames [facility]. [facility]10-14-[facility] Note* Care Plan Note - Bozena Kline - 07/09/2024 2:46 PM EDT DISCHARGE/TREATMENT PLAN: 07/09/[address] return [address] the [facility] at discharge with facility for transportation. Report not needed. [facility] requests Brandi Barnes be contact to arrange transportation on dayof discharge @ [phone] Wellness is following SW will remain following AYDIN AguirreW, SAFETY CONSULTANT Tax Commissioner [facility]10-14-2024 Consult note* Raisa Bozena - 07/09/2024 2:42 PM EDTAssociated Order(s): IP CONSULT TO SOCIAL WORK; IP CONSULT TO SOCIAL WORK SOCIAL WORK ASSESSMENT CARE HOME/PERSONAL CARE/ASSISTED LIVING/REHABILITATION RESIDENT DATE: 07/09/24 NAME: Carolina [...] further evaluation FACILITY NAME AND CONTACT INFO: [facility] [phone] ([facility]) PAYOR SOURCE/LOC/BED HOLD: [employer] [place] Medicaid * Is insurance pre-cert required before return: No * Does a new PASRR need completed prior to return: No SPECIALTY SERVICES/CARE CAGE SUPERVISOR : SUPPORT SYSTEM: Staff at [facility] MEDICAL HISTORY: Past Medical History: Diagnosis Date Ascites Chronic hepatitis C virus infection (CMS/HCC) Cirrhosis ([facility]/HCC) DISCUSSION & INTERVENTION: Pt plans to return to [facility] [place]. SW confirmed pt able to return at [place]. Advised by [facility] to contact Brandi Barnes for transportation [phone] DISPOSITION/NEXT STEPS: SW DISCHARGE/TREATMENT PLAN: 07/09/[address] return [address] the [facility] at discharge with facility for transportation. Report not needed. [facility] requests Brandi Barnes be contact to arrange transportation on dayof discharge @ [phone] Wellness is following SW will remain following VIV Aguirre, SAFETY CONSULTANT Tax Commissioner [facility]10-14-2024 Consult note* Elisa Cross NP - 07/09/2024 2:01 PM EDTAssociated Order(s): IP CONSULT TO WELLNESS RECOVERY HEAT TREAT TECHNICIAN SUBSTANCE USE CONSULTATION DATE OF ADMISSION: 07/08/2024 DATE OF SERVICE: 07/09/2024 LOS: 0 ATTENDING PROVIDER Tod Cohn, IDENTIFYING DATA: This was a 48 y.o. female who presently resides Other [facility] re[facility], [place] [address]. The patient was admitted to the 4D189/9K867H due to Transfer Report Alcoholic cirrhosis of [...] Pt states she wishes to return to [facility] at d/c. Will check with facility on d/c requirements for readmission acceptance, wellness manager social media to work closely with facility on needs.Pr [...] fluticasone propionate (FLONASE) 50 mcg/Actuation nasal spray Lynn 50 mcg in each nostril Once Daily. [...] Lab Results Component Value Date/Time WBC 7.6 07/09/2024 0416 RBC 3.77 07/09/2024 0416 HGB 12.3 07/09/20246 HCT 35.0 07/09/20246 MCV 92.8 07/09/20246 MCH 32.6 07/09/20246 MCHC 35.1 07/09/20246 RDW 17.9 07/09/20246 MPV 9.6 07/09/20246 PLATELETCNT 83 07/09/20246 CMP: Lab Results Component Value Date/Time SODIUM 136 07/09/20246 POTASSIUM 4.2 07/09/20246 CHLORIDE 109 07/09/20246 CO2 21 07/09/20246 GLUCOSE 77 07/09/20246 BUN 13 07/09/20246 CREATININE 0.9 07/09/20246 CALCIUM 9.2 07/09/20246 PROTEINTOTAL 7.0 07/09/2024 0416 TBILIRUBIN 1.9 07/09/2024 0416 ALP 96 07/09/2024 0416 AST 89 07/09/2024 0416 ALTSGPT 54 07/09/2024 0416 ALBUMIN 3.1 07/09/2024 0416 AGRATIO 0.8 07/09/20246 Hepatic Panel: Lab Results Component Value Date/Time TBILIRUBIN 1.9 07/09/20246 ALBUMIN 3.1 07/09/2024 0416 ALTSGPT 54 07/09/2024 0416 AST 89 07/09/2024 0416 ALP 96 07/09/2024 0416 PROTEINTOTAL 7.0 07/09/20246 FAMILY HISTORY: Denies MH or [facility] family [...] treatment - would like to return to [facility] [place], [place]- Wellness SW assisting with D/Cplanning. Dangers of polysubstance abuse were discussed with the patient to include but not limited to the risk of overdose and . Patient verbalized adequate understanding. Narcan RX provided as well as administration education CBT/CL: Recommend Counseling/Behavioral modification program with group and IC and peer support counseling sessions ACCOUNTING RECONCILIATION CLERK and flight service specialist following patient and assisting with d/c planning. as well as working with Nurse division manager for socioeconomic needs. The patient was given a substance abuse resource list which includes inpatient and outpatient rehabilitation programs in [place], [place], and [place]. Advised to establish care with PCP Thank you for consult. Please consult or contact [facility] with any questions. Signed: Elisa Cross NP 07/09/2024 2:01 PM Associated attestation - Jessie Victor MD - 07/10/2024 3:09 PM EDT Signed: Jessie Victor MD 07/10/2024 3:09 PM [facility]10-14-2024 Consult note* Charly Vaz APSS - 07/09/2024 1:45 PM EDTAssociated Order(s): IP CONSULT TO WELLNESS RECOVERY USER EXPERIENCE ARCHITECT New Peer Support Consult Presenting Problem: Patient [...] she just started being seen at [facility] in [facility] [place] and will continue to follow up there. PSS encouraged patient. Provided and discussed resource options for local [facility]/MH services. Collaborated with Wellness & Recovery Team and Social Work Team. Charly Vaz [facility]10-14-2024 Consult note* Namrata Lozano APRN - 07/09/2024 10:48 AM EDTAssociated Order(s): IP CONSULT TO INTERVENTIONAL RADIOLOGY Images from the original note were not included. Interventional Radiology Brief Consult Note Requesting Physician: River Arguelles MD Reason for Consultation: "ascites and need tap. Scheduled for next Tuesday but having severe pain issues." I have reviewed the chart. Impression: s/p abdominal pain and paracentesis 07/09/[address] Milton. Please see consult note dated 07/09/2024 and procedure note for further details. Recommendation: Procedure complete, thank you for the consult. We will sign off. Please reconsult PRN. Signed: Namrata Lozano APRN 07/09/2024 10:48 AM Associated attestation - Ginger Milton MD - 07/09/2024 5:10 PM EDT Agree with HEAT TREAT TECHNICIAN note [facility] Work Phone: [phone] Consult note* Ginger Milton MD - 07/09/2024 [...] Signed: Ginger Milton M.D. 07/09/2024 7:51 AM [facility] Work Phone: [phone] Note* Handoff Documentation - Kraig Fernando LPN - 07/09/2024 7:00 AM EDT Received report from NASH Lu. [facility]10-14-2024 Note* End of Shift Note - Yumiko Rivas RN - 07/09/2024 6:15 AM EDT Nursing End of Shift Summary Pertinent changes to patient conditions and/or care this shift: pt new admit this shift. Vital Signs Weight: 77.9 kg (171 lb 11.2 oz) (07/09/249) Temp: 98 F (36.7 C) Temp Source: Oral Heart Rate:61 BP: 125/85 Respirations: 20 Oxygen Saturation SpO2: 100 % O2 Delivery: Room air O2 Device: None (Room air) Incentive Spirometry Diet Diet Cardiac; Intake/Output Totals Intake/Output 07/08/24 0700 - 07/09/24 0659 [phone] [id number] Total Intake P.O. -- 960 960 I.V. [...] Abnormalities No Labs No results found for: "FUNCTIONAL", "PLTAGGREG" Lab Results Component Value Date RBC 3.77 [...] Diuretics SDOH Screen Assessed? Completed [facility] Expected Discharge Date Education Provided Other (Comment) fall risks [facility]10-14-2024 Note* Care Plan Note - Yumiko Rivas, RN - 07/09/2024 6:15 AM EDT Problem: [...] by Yumiko Rivas, NASH Outcome: Ongoing Problem: Discharge Planning Goal: Knowledge [...] Rivas, RN Outcome: Ongoing 07/09/2024613 by Yumiko Rivas RN Outcome: Ongoing Problem: Nutrition Deficit Goal: Adequate nutritional intake Description: Interventions: -Consult to financial services officer -Intake and output measurement -Calorie count if indicated 07/09/2024614 by Yumiko Rivas, RN Outcome: Ongoing 07/09/2024613 by Yumiko Rivas, RN Outcome: Ongoing Goal: Body weight within specified parameters Description: Interventions: - Body weight measurement 07/09/2024614 by Yumiko Rvias, NASH Outcome: Ongoing 07/09/2024613 by Yumiko Rivas RN Outcome: Ongoing Problem: Pain, Acute Goal: Communication of presence of pain Description: Interventions: - Nonpharmacologic pain management - Medication administration - Education, pain scale 07/09/2024614 by Yumiko Rivas, RN Outcome: Ongoing 07/09/2024613 by Yumiko Rivas, NASH Outcome: Ongoing Problem: Skin Integrity, Impaired, Risk [...] 07/09/2024613 by Yumiko Rivas, RN Outcome: Ongoing [facility]10-14-2024 Emergency department Note* Mohit Barnes RN - 07/09/2024 1:56 AM EDT Care handoff discussed and patient update given to Tabitha on 4D. [facility]10-14-2024 Emergency department Note* Mohit Barnes RN - 07/09/2024 1:56 AM EDT Care handoff discussed and patient update given to Tabitha on 4D. * Scot Pillai RN - 07/08/2024 6:16 PM EDT Arrived to ED with as transfer from [facility]. Patient has complaints of abd swelling and pain. States that on Tuesday she had a paracentesis and had 3 liters taken but was transferred today when she went back in. Patient alert and oriented x 3. * Lambert Christie DO - 07/08/2024 5:38 PM EDT Carolina Hightower [[id number]] (F) - 48 y.o. Note Creation:07/08/2024 Encounter Date:07/08/2024 History Chief Complaint Patient presents with Transfer Report HPI Patient is a 48 y.o. female with a hx of cirrhosis and hepatitis C presents to the ED via EMS as a transfer report from [facility] for evaluation of ascites. Patient was accepted [...] Paracentesis performed by Max Rico MD at [facility] ULTRASOUND GUIDANCE N/A 07/02/2024 Ultrasound Guidance performed by Max Rico MD at [facility] No family history on file. [...] Patient Position BP Location Heart Rate (Monitor) 07/08/24 1800 -- -- -- 07/08/24 1800 117/75 65 Pulse Pulse Source Respirations Temp [...] Hospitalist accepts the patient for admission. Plan: [facility] RECHECK: Admit: The pt is awake [...] for and in the presence of Lambert Christie DO Electronically Signed By Silvia Mosqueda 07/08/2024 5:40 PM Provider Attestation: I personally performed the services described in the documentation, reviewed the documentation recorded by the scribe in my presence and it accurately and completely records my words and actions. Electronically Signed By Lambert Christie DO 07/08/2024 11:50 PM documented in this encounterJames B. [facility]10-13-20[facility] History and physical note* River Arguelles [...] smokeless tobacco. Allergies: Wellbutrin [bupropion] and Codeine CAGE SUPERVISOR Medications: None Review of Systems: comprehensive review [...] sonographic guidance aseptic trocar technique a 6.5 Nauruan MERIT resolve drainage catheter was placed into [...] MCV 91.8 PLATELETCNT 76* CMP: Recent Labs 07/08/243 SODIUM 137 POTASSIUM 4.2 CHLORIDE 110 CO2 24 GLUCOSE 94 BUN 13 CREATININE 0.8 CALCIUM 9.3 TBILIRUBIN 1.7* ALP 108 AST 78* ALBUMIN 3.0* Coagulation: Recent Labs 07/08/241822 APTT 37.3* PROTIME 16.4* INR 1.4* Cardiac Enzymes: No results for input(s): "CK", "CKMB", "TROPIHSBASE", "NFNFVVJ8G", "AQEIBVK9U" in the last 72 hours. CMP: Recent Labs 07/08/24 182 SODIUM 137 POTASSIUM 4.2 CHLORIDE 110 CO2 [...] Signed: River Arguelles MD 07/08/2024 7:57 PM [facility]10-13-2024 History and physical note* River Arguelles [...] smokeless tobacco. Allergies: Wellbutrin [bupropion] and Codeine CAGE SUPERVISOR Medications: None Review of Systems: comprehensive review [...] sonographic guidance aseptic trocar technique a 6.5 Nauruan MERIT resolve drainage catheter was placed into [...] 1.4* Cardiac Enzymes: No results for input(s): "CK", "CKMB", "TROPIHSBASE", "YAAVJFI1U", "GXKDQMU1I" in the last 72 hours. CMP: Recent Labs 07/08/241822 SODIUM 137 POTASSIUM 4.2 CHLORIDE 110 CO2 24 GLUCOSE 94 BUN 13 CREATININE 0.8 CALCIUM 9.3 PROTEINTOTAL 6.4 TBILIRUBIN 1.7* ALP 108 AST 78* ALTSGPT 53 ALBUMIN 3.0* AGRATIO 0.9 Hepatic Panel: Recent Labs 07/08/24 182 TBILIRUBIN 1.7* ALBUMIN 3.0* ALTSGPT 53 AST [...] MD 07/08/2024 7:57 PM documented in this encounterJames B. [facility]gin [facility]10-13-2024 Emergency department Note* Scot Pillai RN - 07/08/2024 6:16 PM EDT Arrived to ED with as transfer from [facility]. Patient has complaints of abd swelling and pain. States that on Tuesday she had a paracentesis and had 3 liters taken but was transferred today when she went back in. Patient alert and oriented x 3. [facility]10-13-2024 Physician Emergency department Note* Lambert Christie DO - 07/08/2024 5:38 PM EDT Carolina Hightower [[id number]] (F) - 48 y.o. Note Creation:07/08/2024 Encounter Date:07/08/2024 History Chief Complaint Patient presents with Transfer Report HPI Patient is a 48 y.o. female with a hx of cirrhosis and hepatitis C presents to the ED via EMS as a transfer report from [facility] for evaluation of ascites. Patient was accepted [...] Paracentesis performed by Max Rico MD at [facility] ULTRASOUND GUIDANCE N/A 07/02/2024 Ultrasound Guidance performed by Max Rico MD at [facility] No family history on file. [...] Hospitalist accepts the patient for admission. Plan: [facility] RECHECK: Admit: The pt is awake [...] for and in the presence of Lambert Christie DO Electronically Signed By Silvia Mosqueda 07/08/2024 5:40 PM Provider Attestation: I personally performed the services described in the documentation, reviewed the documentation recorded by the scribe in my presence and it accurately and completely records my words and actions. Electronically Signed By Lambert Christie DO 07/08/2024 11:50 PM [facility]10-10-2024 Emergency department Note* Pete Ponce MD - 07/05/2024 12:28 PM EDT Carolina Hightower [[id number]] (F) - 48 y.o. Note Creation:07/05/2024 Encounter Date:07/05/2024 History Chief Complaint Patient presents with Swelling abdomen Carolina Hightower is a 48 y.o. female with hx of Hep C cirrhosis who presents to the ED via PV from [facility] with c/o abdominal distention that began several days ago. She also notes she has gained 7 lbs since Tuesday. Per chart review, pt was evaluated in ED on 07/02 and received paracentesis by Dr. Rico. Pt notes she was evaluated in [facility] and is not transplant candidate. She denies fever, chills, CP, SOB, n/v, or any other pertinent symptoms or concerns. She denies any otheraggravating or alleviating factors. She denies any other pertinent PMHx. Pt requests pain medication for joint aches. Pt does not have GI or PCP in [facility] and [facility] and does not plan on going back to [place]. The history is provided by the patient and medical records. Past Medical History: Diagnosis Date Ascites Chronic hepatitis C virus infection (CMS/HCC) Cirrhosis (CMS/HCC) Past Surgical History: Procedure Laterality Date HX LIVER BIOPSY HX POST STERILIZATION PARACENTESIS N/A 07/02/2024 Paracentesis performed by Max Rico MD at [facility] ULTRASOUND GUIDANCE N/A 07/02/2024 Ultrasound Guidance performed by Max Rico MD at [facility] No family history on file. [...] A IGM NEGATIVE Negative Results None Plan: [facility] RECHECK: Discharge: The pt is awake, alert and stable appearing at time of reevaluation. I spoke with the patient about her ED work up, diagnosis and any further treatment. I discussed the importance of following up with the GI doctor for further evaluation as scheduled. Also, follow up at the [facility] as scheduled to establish a primary [...] Discharged Condition Stable Comment -- Follow-up Information [facility] Interventional Radiology . Specialty: Interventional Radiology Contact information: [address] [place] [id number] Discharge Instructions Follow with the GI doctor for further evaluation as scheduled on 07/18 at [address] Welsh. Also, follow up at the [facility] as scheduled on 07/27 at 1030 am with Jhonatan Banda NP to establish a primary care provider. Discharge References/Attachments Cirrhosis of the Liver (AfterCare(R) Instructions(ER/ED)) (Czech) Scribe Attestation: Gigi Mancini, am acting as scribe for and in the presence of Pete Ponce MD. Electronically Signed By Gigi Isaacs 07/05/24 1:02 PM Provider Attestation: I personally performed the services described in the documentation, reviewed the documentation recorded by the scribe in my presence and it accurately and completely records my words and actions. documented in this encounterJames B. Haggin [facility] Hospital10-10-2024 Physician Emergency department Note* Pete Ponce MD - 07/05/2024 12:28 PM EDT Carolina Hightower [[id number]] (F) - 48 y.o. Note Creation:07/05/2024 Encounter Date:07/05/2024 History Chief Complaint Patient presents with Swelling abdomen Carolina Hightower is a 48 y.o. female with hx of Hep C cirrhosis who presents to the ED via PV from [facility] with c/o abdominal distention that began several days ago. She also notes she has gained 7 lbs since Tuesday. Per chart review, pt was evaluated in ED on 07/02 and received paracentesis by Dr. Rico. Pt notes she was evaluated in [facility] and is not transplant candidate. She denies fever, chills, CP, SOB, n/v, or any other pertinent symptoms or concerns. She denies any otheraggravating or alleviating factors. She denies any other pertinent PMHx. Pt requests pain medication for joint aches. Pt does not have GI or PCP in [facility] and states [facility] and does not plan on going back to [place]. The history is provided by the patient and medical records. Past Medical History: Diagnosis Date Ascites Chronic hepatitis C virus infection (CMS/HCC) Cirrhosis (CMS/HCC) Past Surgical History: Procedure Laterality Date HX LIVER BIOPSY HX POST STERILIZATION PARACENTESIS N/A 07/02/2024 Paracentesis performed by Max Rico MD at [facility] ULTRASOUND GUIDANCE N/A 07/02/2024 Ultrasound Guidance performed by Max Rico MD at [facility] No family history on file. [...] A IGM NEGATIVE Negative Results None Plan: [facility] RECHECK: Discharge: The pt is awake, alert and stable appearing at time of reevaluation. I spoke with the patient about her ED work up, diagnosis and any further treatment. I discussed the importance of following up with the GI doctor for further evaluation as scheduled. Also, follow up at the [facility] as scheduled to establish a primary [...] Discharged Condition Stable Comment -- Follow-up Information [facility] Interventional Radiology . Specialty: Interventional Radiology Contact information: [address] [place] [id number] Discharge Instructions Follow with the GI doctor for further evaluation as scheduled on 07/18 at [address] Welsh. Also, follow up at the [facility] as scheduled on 07/27 at 1030 am with Jhonatan Banda NP to establish a primary care provider. Discharge References/Attachments Cirrhosis of the Liver (AfterCare(R) Instructions(ER/ED)) (Czech) Scribe Attestation: I, Gigi Isaacs, am acting as scribe for and in the presence of Pete Ponce MD. Electronically Signed By Gigi Isaacs 07/05/24 1:02 PM Provider Attestation: I personally performed the services described in the documentation, reviewed the documentation recorded by the scribe in my presence and it accurately and completely records my words and actions. [facility]10-10-2024 History of Present illness Narrative* Perla Cox RN - 07/05/2024 12:19 PM EDT Follow-up appt w/ Dr. Welsh on July 18 at 11:00am. Info given to nurseJamia, to give to Pt. Dr. Ponce aware. documented in this encounterJames B. Haggin [facility]10-[facility] Hospital Discharge instructions* Discharge Instructions* Pete Ponce MD - 07/05/2024 12:03 PM EDT Follow with the GI doctor for further evaluation as scheduled on 07/18 at [address] Welsh. Also, follow up at the [facility] as scheduled on 07/27 at 1030 am with Jhonatan Banda NP to establish a primary care provider. * Attachments The following attachments cannot be sent through Care Everywhere. * Cirrhosis of the Liver (AfterCare(R) Instructions(ER/ED)) (Czech) documented in this encounterJames B. [facility]gin [facility]10-07-[facility] Emergency department Note* Hi Lara RN - 07/02/2024 4:04 PM EDT Patient states she is not waiting on d/c paperwork and left facility. [facility]10-07-[facility] Emergency department Note* Hi Lara RN - 07/02/2024 4:04 PM EDT Patient states she is not waiting on d/c paperwork and left facility. * Hi Lara RN - 07/02/2024 3:06 PM EDT Pt arrived back from paracentesis. * Pete Ponce MD - 07/02/2024 11:47 AM EDT Carolina Hightower [[id number]] (F) - 48 y.o. Note Creation:07/02/2024 Encounter Date:07/02/2024 History Chief Complaint Patient presents with Swelling Carolina Hightower is a 48 y.o. female with hx of ascites, Hep C, liver cirrhosis who presents to the ED via PV from [facility] with c/o abdominal swelling that began within the last few days. She notesshe has alcoholic and Hep C cirrhosis of the liver and had paracentesis in [place] two weeks ago where she had 8L drained. She denies any pain complaints. Pt notes she has been at the [facility] for a week recovering from meth. She [...] Patient Position BP Location Heart Rate (Monitor) 07/02/2495307/02/2495307/02/24953 -- -- 129/65 Automatic Sitting Pulse Pulse Source Respirations Temp Temp Source 07/02/2454 07/02/2454 07/02/2454 07/02/2454 07/02/24953 64 Brachial 19 98.7 F (37.1 C) Oral SpO2 SPO2 Location O2 Delivery O2 Device O2 Flow Rate (l/min) 07/02/24 0954 07/02/24 0954 07/02/24 0954 07/02/24 1242 -- 100 % Right Arm Room air None (Room air) FIO2 (%) Pain Intensity 1 Exacerbated By Relieved By Quality -- 07/02/24 0951 -- -- -- 8 Duration -- Physical [...] sonographic guidance aseptic trocar technique a 6.5 Nauruan MERIT resolve drainage catheter was placed into [...] TAKE TO IR LAB FOR PARACENTESIS. Plan: [facility] RECHECK: Discharge: The pt is awake, [...] stable at time of discharge back to [facility]. Medical Decision Making DIFFERENTIAL DIAGNOSIS Differential Diagnosis: [...] Treatment Condition Stable Comment -- Follow-up Information [facility] Inter[facility] Radiology In 1 week. Specialty: Interventional Radiology Contact information: [address] [place] [address] [address] [facility] [phone] Haseeb Coughlin MD. Specialties: Gastroenterology, Reading Provider Contact information: [address] [place] [address] [address] [id number] Discharge Instructions FOLLOW UP WITH THE GI DOCTOR TO ESTABLISH CARE OR AT THE NEAREST [facility]. RETURN TO ED IF ANY NEW [...] my words and actions. documented in this encounterJames B. Haggin [facility]10-07-2024 Emergency department Note* Hi Lara RN - 07/02/2024 3:06 PM EDT Pt arrived back from paracentesis. [facility]10-07-2024 NoteProcedure: Ultrasound-guided diagnostic and therapeutic paracentesis Indication: [...] sonographic guidance aseptic trocar technique a 6.5 Nauruan MERIT resolve drainage catheter was placed into [...] paracentesis as above. Laboratory studies are pending. [facility]10-07-2024 Hospital Discharge instructions* Discharge Instructions* Pete Ponce MD - 07/02/2024 2:19 PM EDT FOLLOW UP WITH THE GI DOCTOR TO ESTABLISH CARE OR AT THE [facility]ST [facility]. RETURN TO ED IF ANY NEW OR WORSENING SYMPTOMS. documented in this encounterJames B. [facility]gin [facility]10-07-2024 Physician Emergency department Note* Pete Ponce MD - 07/02/2024 11:47 AM EDT Carolina Hightower [[id number]] (F) - 48 y.o. Note Creation:07/02/2024 Encounter Date:07/02/2024 History Chief Complaint Patient presents with Swelling Carolina Hightower is a 48 y.o. female with hx of ascites, Hep C, liver cirrhosis who presents to the ED via PV from [facility] with c/o abdominal swelling that began within the last few days. She notesshe has alcoholic and Hep C cirrhosis of the liver and had paracentesis in [place] two weeks ago where she had 8L drained. She denies any pain complaints. Pt notes she has been at the [facility] for a week recovering from meth. She [...] Heart Rate (Monitor) 07/02/24 0954 07/02/24 0954 07/02/24 0954 -- -- 129/65 Automatic Sitting Pulse Pulse [...] sonographic guidance aseptic trocar technique a 6.5 Nauruan MERIT resolve drainage catheter was placed into [...] TAKE TO IR LAB FOR PARACENTESIS. Plan: [facility] RECHECK: Discharge: The pt is awake, [...] stable at time of discharge back to [facility]. Medical Decision Making DIFFERENTIAL DIAGNOSIS Differential Diagnosis: [...] Treatment Condition Stable Comment -- Follow-up Information [facility] Inter[facility] Radiology In 1 week. Specialty: Interventional Radiology Contact information: [address] [place] [address] [address] [facility] [address] Haseeb Coughlin MD. Specialties: Gastroenterology, Reading Provider Contact information: [address] [place] [address] [address] [facility] [address] Discharge Instructions FOLLOW UP WITH THE GI DOCTOR TO ESTABLISH CARE OR AT THE NE[facility]ST [facility]. RETURN TO ED IF ANY NEW [...] and completely records my words and actions. [facility]10-07-2024 History and physical note* Max Rico MD [...] Signed: Max Rico MD 07/02/2024 10:53 AM [facility] Work Phone: 1(963) 800-406110-07-2024 History and physical note* Max Rico MD [...] MD 07/02/2024 10:53 AM documented in this encounterJames B. [facility]gin [facility]09-06-2024 Telephone encounter Note* Telephone Encounter - Dacia Acosta MD - 06/01/2024 1:58 PM EDT Treated with antibiotics in the hospital, discharged on Cipro and Flagyl. Dacia Acosta MD [facility]09-06-2024 Miscellaneous Notes* Telephone Encounter - Dacia Acosta [...] Bactrim DS was discontinued. Melisa Vick MA * Telephone Encounter - Dacia Acosta MD - 06/01/2024 1:42 PM EDT Can we get her discharge summary to see what medications she was treated with? Dacia Acosta MD * Telephone Encounter - Maye Younger LPN - 06/01/2024 10:50 AM EDT Pt was discharged from [facility] on 05/31/24. Maye Younger LPN * Telephone Encounter - Dacia Acosta MD - 06/01/2024 10:23 AM EDT If she remains in the hospital these results will be handled by the hospital providers. Dacia Acosta MD * Telephone Encounter - Obed Mesa RN - 06/01/2024 10:00 AM EDT Sandi with [facility] Lab called in inpatient lab results. She states the Pt has a paracentesis and the fluid culture grew rare entero coccus with some possible anaerobes (but this isn't final). She said the sensitivity should be back tomorrow on the entero coccus. Per Savannah Hargrove RN nurse manager merchandise Dr Acosta has to care for Pt until 06/21/24 until she has time to find a new PCP. documented in this encounterUniversity Hospitals [facility]09-06-2024 Telephone encounter Note * Telephone Encounter - [...] Bactrim DS was discontinued. Melisa Vick MA [facility]09-06-2024 Telephone encounter Note* Telephone Encounter - Dacia Acosta MD - 06/01/2024 1:42 PM EDT Can we get her discharge summary to see what medications she was treated with? Dacia Acosta MD [facility]09-06-2024 Telephone encounter Note* Telephone Encounter - Maye Younger LPN - 06/01/2024 10:50 AM EDT Pt was discharged from [facility] on 05/31/24. Maye Younger LPN [facility]09-06-2024 Telephone encounter Note* Telephone Encounter - Dacia Acosta MD - 06/01/2024 10:23 AM EDT If she remains in the hospital these results will be handled by the hospital providers. Dacia Acosta MD [facility]09-06-2024 Telephone encounter Note* Telephone Encounter - Obed Mesa RN - 06/01/2024 10:00 AM EDT Sandi with [facility] Lab called in inpatient lab results. She states the Pt has a paracentesis and the fluid culture grew rare entero coccus with some possible anaerobes (but this isn't final). She said the sensitivity should be back tomorrow on the entero coccus. Per Savannah Hargrove RN nurse manager merchandise Dr Acosta has to care for Pt until 06/21/24 until she has time to find a new PCP. [facility]09-06-2024 Telephone encounter Note* Telephone Encounter - Obed Mesa RN - 06/01/2024 9:48 AM EDT Sandi with [facility] Lab/Microbiology called in to give lab reports on Pt stating that Dr Acosta's office had said that Pt care had been transferred to Claribel Lagunas CENTRIFUGAL CASTING MACHINE OPERATOR. I let her know that Pt didn't have any PCP listed through [facility] and no establish care visit. I gave her the [facility] phone # [phone] to call with any questions. [facility]09-06-2024 Miscellaneous Notes* Telephone Encounter - Obed Mesa RN - 06/01/2024 9:48 AM EDT Sandi with [facility] Lab/Microbiology called in to give lab reports on Pt stating that Dr Acosta's office had said that Pt care had been transferred to Claribel Lagunas CENTRIFUGAL CASTING MACHINE OPERATOR. I let her know that Pt didn't have any PCP listed through [facility] and no establish care visit. I gave her the [facility] phone # [phone] to call with any questions. * Telephone Encounter - Janna Troncoso RN - 06/01/2024 9:36 AM EDT Kaylin calling from [facility] Lab/Microbiology with positive test results for patient. Informed Kaylin per record, as of 05/30/24, patient has been dismissed from department, and patient to contact [facility] office with questions at [phone]. Janna Troncoso RN documented in this encounterUniversity Hospitals [facility]09-06-2024 Telephone encounter Note * Telephone Encounter - Janna Troncoso RN - 06/01/2024 9:36 AM EDT Kaylin calling from [facility] Lab/Microbiology with positive test results for patient. Informed Kaylin per record, as of 05/30/24, patient has been dismissed from department, and patient to contact [facility] office with questions at [phone]. Janna Troncoso RN [facility]09-05-2024 History of Present illness Narrative* Katelyn Park, [facility] - 05/31/2024 6:38 AM EDT Chart review reveals a recent lab test performed at [facility]. Unexpected results found as part of testing [...] Wellbutrin [Bupropi* Other: See Comments seizures Katelyn Park RPh Clinical Pharmacist, Hepatology & HCV [facility] P: ; F: Pool: P CC SPEC GROUP 3 documented in this encounterUniversity Hospitals [facility]aut [facility] Center08-29-2024 Telephone encounter Note * Telephone Encounter - Radha Christensen RN - 05/24/2024 5:37 PM EDT Attempted to contact patient. VM full. Radha Christensen RN [facility]08-29-2024 Miscellaneous Notes* Telephone Encounter - Radha Christensen [...] 05/23/2024 2:47 PM EDT See previous message. Kortney Injection Operator @ [facility] calling back to say patient lost the Bactrim that was prescribed @ [facility] 05/15. The prescribing physician is not available and Urologist, Dr. Dawson [place]. She is asking if PCP can prescribe the Bactrim? Script was for Bactrim DS 800-160 mg twice daily for 5 days. [facility]. Please let Kortney know if script sent. # [phone]. Radha Christensen RN * Telephone Encounter - Joanie Stahl RN - 05/23/2024 2:12 PM EDT Kortney- Injection Operator at [facility], reports patient had a stent placed and was placed on Bactrim on 05-15-24. Pt can't find the bactrim, and she thought pcp was going to order it again. Advised per chart it does not appear bactrim was ordered by pcp. Kortney states she will check with urology. Kortney reports pt seems confused. documented in this encounterUniversity Hospitals Conne[facility] Center08-29-2024 Telephone encounter Note * Telephone Encounter - Joanie Stahl RN - 05/24/2024 11:21 AM EDT Left detailed vm on identified vm with provider's message below. [facility]08-29-2024 Telephone encounter Note* Telephone Encounter - Dacia Acosta MD - 05/24/2024 10:09 AM EDT OK for Bactrim as ordered Dacia Acosta MD [facility]08-28-2024 Telephone encounter Note* Telephone Encounter - Radha Christensen RN - 05/23/2024 2:47 PM EDT See previous message. Kortney, Injection Operator @ [facility] calling back to say patient [facility]. The prescribing physician is not available and Urologist, Dr. Dawson is [place] the [place]. She is asking if PCP can prescribe the Bactrim? Script was for Bactrim DS 800-160 mg twice daily for 5 days. [facility]. Please let Kortney know if script sent. # [phone]. Radha Christensen RN [facility]08-28-2024 Telephone encounter Note* Telephone Encounter - Joanie Stahl, RN - 05/23/2024 2:12 PM EDT Kortney- Injection Operator at [facility], reports patient had a stent placed and was placed on Bactrim on 05-15-24. Pt can't find the bactrim, and she thought pcp was going to order it again. Advised per chart it does not appear bactrim was ordered by pcp. Kortney states she will check with urology. Kortney reports pt seems confused. [facility]08-27-2024 Telephone encounter Note* Telephone Encounter - Ne Alonso LPN - 05/22/2024 3:12 PM EDT [facility] notified. [facility]08-27-2024 Miscellaneous Notes* Telephone Encounter - Ne Alonso LPN - 05/22/2024 3:12 PM EDT [facility] notified. * Telephone Encounter - Dacia Acosta MD - 05/22/2024 1:36 PM EDT OK to fill a week early as requested Dacia Acosta MD * Telephone Encounter - Joanie Stahl, RN - 05/22/2024 1:24 PM EDT [facility] reports patient lost her meds again- gabapentin, ferrous sulfate, and vitamin C. Asking for verbal from pcp to give patient refills a week early. Please phone [facility] with verbal: [phone] [facility] is going to put patient on a weekly fill and patient will have to go to pharmacy weekly to orange picker her medications. documented in this encounterUniversity Hospitals [facility] Center08-27-2024 Telephone encounter Note * Telephone Encounter - Dacia Acosta MD - 05/22/2024 1:36 PM EDT OK to fill a week early as requested Dacia Acosta MD [facility]08-27-2024 Telephone encounter Note* Telephone Encounter - Joanie Stahl RN - 05/22/2024 1:24 PM EDT [facility] reports patient lost her meds again- gabapentin, ferrous sulfate, and vitamin C. Asking for verbal from pcp to give patient refills a week early. Please phone [facility] with verbal: [phone] [facility] is going to put patient on a weekly fill and patient will have to go to pharmacy weekly to orange picker her medications. [facility]08-22-2024 Telephone encounter Note* Telephone Encounter - Dacia Acosta MD - 05/17/2024 11:51 AM EDT Noted; I agree with the advice given; check with Urology or return to ER Dacia Acosta MD [facility]08-22-2024 Miscellaneous Notes* Telephone Encounter - Dacia Acosta MD - 05/17/2024 11:51 AM EDT Noted; I agree with the advice given; check with Urology or return to ER Dacia Acosta MD * Telephone Encounter - Mary Orozco RN - 05/17/2024 10:52 AM EDT Patient calls to report that she recently was discharged from [facility] after right stent placement for kidney [...] ER but they probably won't do anything. Mary Orozco RN documented in this encounterUniversity Hospitals [facility] Center08-22-2024 Telephone encounter Note * Telephone Encounter - Mary Orozco RN - 05/17/2024 10:52 AM EDT Patient calls to report that she recently was discharged from [facility] after right stent placement for kidney [...] ER but they probably won't do anything. Mary Orozco RN [facility]08-20-2024 History of Present illness Narrative* Erik Salas DO - 05/15/2024 3:17 PM EDT HPI: [...] PAST SURGICAL HISTORY OF Comment: liver bx [facility] ALLERGIES Allergen Reactions Aspirin UNCERTAIN =CHILDHOOD Bupropion [...] as possible-Meth last used beginning of Sep Family History Problem Relation Age of Onset [...] No jaundice or rash. No petechiae. 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 No focal motor weakness. DTRs are symmetric and normal. MUSCULOSKELETAL: No joint swelling or tenderness. No muscle wasting. documented in this encounterUniversity Hospitals [facility] Center08-20-2024 Telephone encounter Note * Telephone Encounter - Lyssa Hector MA - 05/15/2024 9:25 AM EDT Message sent on Snapd App with normal results Lyssa Hector MA [facility]08-20-2024 Miscellaneous Notes* Telephone Encounter - Lyssa Hector MA - 05/15/2024 9:25 AM EDT Message sent on Snapd App with normal results Lyssa Hector MA * Telephone Encounter - Claribel Lagunas APRN.CNP - 05/15/2024 9:00 AM EDT Please let patient know she is negative for trichomonas. documented in this encounterUniversity Hospitals [facility] Center08-20-2024 Telephone encounter Note * Telephone Encounter - Claribel Lagunas APRN.CNP - 05/15/2024 9:00 AM EDT Please let patient know she is negative for trichomonas. [facility] Work Phone: 1(856) 263-475108-16-2024 Telephone encounter Note* Telephone Encounter - Ledy Orantes MA - 05/11/2024 10:36 AM EDT Call to pt and notified her of results below from Provider. Pt verbalized understanding. Ledy Orantes MA [facility]08-16-2024 Miscellaneous Notes* Telephone Encounter - Ledy Orantes MA - 05/11/2024 10:36 AM EDT Call to pt and notified her of results below from Provider. Pt verbalized understanding. Ledy Orantes MA * Telephone Encounter - Claribel Lagunas APRN.CNP - 05/11/2024 9:18 AM EDT Please let patient know her HIV and syphilis is negative. Her potassium is low at 3.4. I would likeher to repeat this lab in 1 week. documented in this encounterUniversity Hospitals [facility] Center08-16-2024 Telephone encounter Note * Telephone Encounter - Claribel Lagunas APRN.CNP - 05/11/2024 9:18 AM EDT Please let patient know her HIV and syphilis is negative. Her potassium is low at 3.4. I would likeher to repeat this lab in 1 week. [facility]08-[facility] History of Present illness Narrative* Claribel Lagunas APRN.CNP - 05/10/2024 12:27 PM EDT Chief Complaint [...] Insomnia Previous Surgical History PAST SURGICAL HISTORY 2003: LIG/TRNSXJ FLP TUBE ABDL/VAG APPR UNI/BI Comment: Tubal ligation 08/04/2018: LIVER BIOPSY 2018: PAST SURGICAL HISTORY OF Comment: liver bx [facility] Family History FAMILY HISTORY Problem Relation Age [...] V13.29, ICD10: Z87.42 - CONSULT TO GYNECOLOGY Claribel Lagunas APRN.TRAVELING PASSENGER AGENT documented in this encounterUniversity Hospitals Conne[facility] Center08-14-2024 Telephone encounter Note * Telephone Encounter - Kayleen Rapp MA - 05/09/2024 7:36 PM EDT Pt was notified of the results. Pt verbalized understanding. Kayleen Rapp MA [facility]08-14-2024 Miscellaneous Notes* Telephone Encounter - Kayleen Rapp MA - 05/09/2024 7:36 PM EDT Pt was notified of the results. Pt verbalized understanding. Kayleen Rapp MA * Telephone Encounter - Lynn Prabhakar MD - 05/09/2024 6:57 PM EDT Urine culture did not show a clear infection. Finish antibiotic and follow up with PCP for recheck of urine. documented in this encounterUniversity Hospitals [facility] Center08-14-2024 Telephone encounter Note * Telephone Encounter - Lynn Prabhakar MD - 05/09/2024 6:57 PM EDT Urine culture did not show a clear infection. Finish antibiotic and follow up with PCP for recheck of urine. [facility] Work Phone: 1(178) 161-979708-12-2024 History of Present illness Narrative* Therese Dowling APRN.TRAVELING PASSENGER AGENT - 05/07/2024 10:58 AM EDT Images from [...] on her chin that has been present "on an off for 5 years". It will go away but always comes back in the same spot. She states it is tender to touch. She has not used anything on it. She also has some abrasions and soreness on bilateral feet. States she was wearing flip flops and they were cutting into her foot but she kept wearing and "I did a lot of walking". She has not used any medication on [...] PAST SURGICAL HISTORY OF Comment: liver bx [facility] ALLERGIES Aspirin, Bupropion, Codeine, Prednisone, and Wellbutrin [...] analgesia. - Discussed expected course of illness Therese Dowling APRN.TRAVELING PASSENGER AGENT documented in this encounterUniversity Hospitals Conneaut Medical Center08-12-2024 Instructions* Patient Instructions* Therese Dowling APRN.TRAVELING PASSENGER AGENT - 05/07/2024 10:56 AM EDT ASSESSMENT/PLAN: 1. [...] analgesia. - Discussed expected course of illness Therese Dowling APRN.DEEPIKA documented in this encounterUniversity Hospitals Conneaut Medical Center08-07-2024 Telephone encounter Note * Telephone Encounter - Symone Sanchez LPN - 05/02/2024 2:30 PM EDT Phoned [facility] ans spoke to darell Bliss rx sent to pharmacy for the Gabapentin. [facility]08-07-2024 Miscellaneous Notes* Telephone Encounter - Symone Sanchez LPN - 05/02/2024 2:30 PM EDT Phoned [facility] ans spoke to darell Bliss rx [...] - 05/02/2024 1:41 PM EDT Ruthy from [facility] calling to check status of note. Patient has been released from [facility]. Asking if could refill her Gabapentin rx one week early? Patient [facility]. Sending note to CENTRIFUGAL CASTING MACHINE OPERATOR to review. Please advise * Telephone Encounter - Jessica Cox LPN - 05/02/2024 8:45 AM EDT Ruthy calling from [facility], pt was incarcerated & now does not have her medications. She was advised by pharmacy to contact the [facility] to see if they have her meds but if they do not they are asking if they can fill her meds early? It will 7 days early & will include gabapentin. Please advise. Jessica Cox LPN documented in this encounterUniversity Hospitals Conneaut Medical Center08-07-2024 Telephone encounter Note * Telephone Encounter - Tresa Sandoval APRN.CNP - 05/02/2024 2:22 PM EDT The following approved medication requests have been transmitted electronically. Requested Prescriptions Signed Prescriptions Disp Refills gabapentin (NEURONTIN) 100 mg capsule 60 capsule 5 Sig: Take 1 capsule by mouth two times a day for 180 days. Authorizing Provider: TRESA SANDOVAL APRN.DEEPIKA [facility]08-07-2024 Telephone encounter Note* Telephone Encounter - Symone Sanchez LPN - 05/02/2024 1:41 PM EDT Ruthy from [facility] calling to check status of note. Patient has been released from [facility]. Asking if could refill her Gabapentin rx one week early? Patient [facility]. Sending note to CENTRIFUGAL CASTING MACHINE OPERATOR to review. Please advise [facility]08-07-2024 Telephone encounter Note* Telephone Encounter - Jessica Cox LPN - 05/02/2024 8:45 AM EDT Ruthy calling from [facility], pt was incarcerated & now does not have her medications. She was advised by pharmacy to contact the [facility] to see if they have her meds but if they do not they are asking if they can fill her meds early? It will 7 days early & will include gabapentin. Please advise. Jessica Cox LPN [facility]08-06-2024 Telephone encounter Note* Telephone Encounter - Yessenia Kline - 05/01/2024 9:10 AM EDT Scheduled with patient. [facility] Work Phone: [phone]) 199-317408-06-2024 Miscellaneous Notes* Telephone Encounter - Yessenia Kline - 05/01/2024 9:10 AM EDT Scheduled with patient. * Telephone Encounter - Kaylin Dominguez - 04/27/2024 11:49 AM EDT Lvm for patient to return the call. Please schedule new pt with either Josue or Steven. Not urgent Kaylin Dominguez documented in this encounterUniversity Hospitals Conneaut Medical Center08-02-2024 Telephone encounter Note * Telephone Encounter - Kaylin Dominguez - 04/27/2024 11:49 AM EDT Lvm for patient to return the call. Please schedule new pt with either Masci or Abramdarielah. Not urgent Kaylin Dominguez [facility]07-26-2024 Instructions* Patient Instructions* Mervin Ambrocio APRN.DEEPIKA - 04/20/2024 2:03 PM EDT Cefdinir twice daily for 7 days. documented in this encounterUniversity Hospitals Conneaut Medical Center07-26-2024 History of Present illness Narrative* Mervin Ambrocio APRN.CNP - 04/20/2024 2:00 PM EDT Transitional [...] here for hospital follow-up. Patient went to [facility] on April 11 for flank pain. [...] remove with paracentesis. She follows with Dr. Foster with gastroenterology as she has received paracentesis [...] Ambien today. [facility]. Patient has [...] with plan follow-up in May with Dr. Foster. 4. Thrombocytopenia (HCC) - ICD9: 287.5, ICD10: D69.6 -Continue with plan follow-up with Dr. Foster in May. 5. Seasonal allergic rhinitis due to pollen - ICD9: 477.0, ICD10: J30.1 -Prior success with Flonase, sent. 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 Patient identified by name and date : YES SUMMARY: -Patient discharged from [facility] ED on 04/13/2024. -Follow up appointment on 04/20/2024. -Medication review done yes, patient was unable to say all medication she is taking at this time. -Presented with: CONCERNS: Patient continues to have pain, mostly in her abdomen area. NEW MEDICATIONS: Cefdinir 300 mg PO BID 14 days Furosemide (Lasix) 40 mg PO Daily MEDS HELD/DISCONTINUED: none BRIEF ED COURSE: Ne Alonso LPN documented in this encounterUniversity Hospitals Conneaut Medical Center07-03-2024 Note. MICRO - Microbiology PROCEDURE: Blood Culture [...] Locations *1: This test was performed at: [facility], [address] [place] [address], [facility] , [facility] ([place])03-28-2024 Note. MICRO - Microbiology PROCEDURE: Blood Culture [...] Locations *1: This test was performed at: [facility], [address] [place] [address], [id number] , [facility] ([place])03-23-2024 Hospital Discharge instructions Patient Education 03/23/2024 17:50:27 [...] or higher after 2 days on antibiotics 5456-8575 The [employer]. [address] [place] [address]. All rights reserved. This information is not intended as a substitute for professional medical care. Always follow yourhealthcare professional's instructions. Follow Up Care 03/23/2024 14:19:24 With:DACIA ACOSTA MD Address: [address] [place], [place] [id number]- When:2-4 days [facility] 06-28-2024 Note Discharge Instructions Thank you for allowing [facility] to assist you with your healthcare needs. The following is importantdischarge information regarding your hospital visit. Diagnosis from Today's Visit Cellulitis What to Do Next Instructions from Your Care Team No qualifying data available. Post Acute Orders No qualifying data available. You Need to Schedule the Following Appointments Follow Up with DACIA ACOSTA MD When:Within 2-4 days Where:[address] [facility] [place] [id number]- Allergies Wellbutrin aspirin Hives codeine Hives Medications [...] may report side effects to FDA at 3-394-DMK-5131. What other drugs will affect cephalexin? Tell your doctor about all your other medicines, especially: metformin; or probenecid. This list is not complete. Other drugs may affect cephalexin, including prescription and udzj-dul-uxmueya medicines, vitamins, and herbal products. Not all [...] to ensure that the information provided by [employer]. ('[employer]') is accurate, up-to-date, and complete, but no guarantee is made to that effect. Drug information contained herein may be time sensitive. [employer] information has been compiled for use by healthcare practitioners and consumers in the [place] and therefore [employer] does not warrant that uses outside of the [place] are appropriate, unless specifically indicated otherwise. [employer] drug information does not endorse drugs, diagnose patients or recommend therapy. [employer] drug information isan informational resource designed to [...] effective or appropriate for any given patient. [employer] does not assume any responsibility for any aspect of healthcare administered with the aid of information [employer] provides. The information contained herein is not intended to cover all possible uses, directions, precautions, warnings, drug interactions, allergic reactions, or adverse effects. If you have questions about the drugs you are taking, check with your doctor, nurse or pharmacist. Copyright 3369-8816 [employer]. Version: 08.26. Revision Date: 04/27/2023. Education Materials Cellulitis Cellulitis [...] or higher after 2 days on antibiotics 7325-7487 [employer], [employer]. [address] [place] [address], [place] [address]. All rights reserved. This information is not intended as a substitute for professional medical care. Always follow yourhealthcare professional's instructions. Additional Information VACCINATE! IT SAVES LIVES! Members of the community who have not yet received the COVID-19 vaccine and would like to receive it can visit one of [facility] vaccine clinics. There are many vaccine clinic locations within the [facility]. For locations and available times, please visit www.gettheshot.coronavirus.[place].gov/. It is important to note that some COVID mobile vaccine clinics are held outdoors and may be canceled in rainy or stormy conditions. To learn more about pediatric vaccinations (ages 5-11), we invite you to visit the [facility] webpage. https://www.XL [employer]ss.org/pages/2336-Izbsx-Ylwzxvuwwdw-Pyqxedsnfq-Lxxkh-Gmq stions.htmlTo learn more about the COVID-19 vaccine, we invite you to visit the CDC website for a list of frequently asked questions. https://www.cdc.gov/coronavirus/2019-ncov/vaccines/faq.html [facility] Patient Portal Access Instructions: Stay connected with your healthcare team and access your personal medical information anytime with the [facility] Patient Portal. If you would like a full copy of your medical records please contact the [facility] Medical Records Department Tuesday through Tuesday between 8a.m. and 4:30p.m. Please follow the directions below to access the portal: 1.Access the email account you provided upon registration to the hospital.2.Look for an invitation email from [facility].3.Open the email and access the invitation link: Accept Invitation to [facility]4.Fill in the required dhillon to create your account. Sign into www.[email or web address] with your username and password that you [...] you will allow to register on the [employer] Patient Portal for access to your information. You can also access the [employer] Patient Portal on the [employer] darwin. Simply click on "Health Records" under "[employer]SiFlow TechnologyDa[employer] Market Analytics" and then click on the I[employer] logo. HOW TO SAFELY DISPOSE OF PRESCRIPTION [...] Call your local pharmacy or go to [email or web address] Gems/9U7Xa2k to find one close to you.3.Make use of household items: Use cat litter or old coffee grounds to dispose medications if other options arenot available. Mix your drugs with these household products, seal them in an airtight container andthrow it into the garbage. Call [facility]: [phone] to be sure your drugs can be [...] reviewed and explained to me and IKATJA CAROLINA Cao understand my current condition and have read and understand these discharge instructions. I have received a written copy of the plan/instructions. If I have questions, I am aware that I should contact my doctor. 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 Signature: Date/Time: Relationship to Patient: Witness Name/Signature: Date/Time: [facility]06-28-2024 Note ORIGINAL EXAMINATION: CT neck with intravenous [...] abscess or drainable fluid collection. Interpreted by: Harjit Mccullough MD Preliminary Report By: Harjit Mccullough MD Electronically signed By Harjit Mccullough MD Dictated Date: 03/23/2024 5:00:42 PM Prelim Date: 03/23/2024 5:09:20 PM Sign Date: 03/23/2024 5:09:20 PM Ordering Provider: [facility]05-14-2024 History of Present illness Narrative* Melisa Main MD - 02/07/2024 8:36 AM EDT CC: Patient presents with: Rash: Chin /left foot HPI: 48 year old female patient here for: Recurrent "pimple" and ulceration on chin Cultures + for [...] psych in several months Notes sore on machine wiper [place] Something poked it [...] Past Histories independently gathered by the clinical production support engineer and the remaining scribed note accurately describes my personal service to the patient. Melisa Main MD documented in this encounterUniversity Hospitals Conneaut Medical Center05-14-2024 Telephone encounter Note * Telephone Encounter - Ashanti Squires PA-C - 02/07/2024 7:45 AM EDT Spoke with patient and states that she is overall feeling better. Denies any hematuria now, back pain, nausea, vomiting, back pain, abdominal pain, chills. She is seeing dermatology today for the sore on her chin and foot. She will continue and finish the antibiotic. Ashanti Squires PA-C 02/07/2024 [facility]05-14-2024 Miscellaneous Notes* Telephone Encounter - Ashanti Squires [...] PM EDT Phone was answered, I said "hello" a couple times and the phone was [...] She states she will be going to [facility], but I couldn't talk her into [...] Urine - Blood In-ADULT- documented in this encounterUniversity Hospitals Conneaut Medical Center05-13-2024 Telephone encounter Note * Telephone Encounter - Obed Mesa RN - 02/06/2024 2:11 PM EDT Phone was answered, I said "hello" a couple times and the phone was hung up on me. [facility]05-13-2024 Telephone encounter Note* Telephone Encounter - Obed Mesa RN - 02/06/2024 11:52 AM EDT Called and left a voicemail for the Patient to call back and ask for a nurse to receive the providers message. Obed Mesa RN [facility]05-13-2024 Telephone encounter Note* Telephone Encounter - Ashanti Squires PA-C - 02/06/2024 11:14 AM EDT Agree-needs to go to ED now. Ashanti Squires PA-C [facility]05-13-2024 Telephone encounter Note* Telephone Encounter - Obed [...] She states she will be going to [facility], but I couldn't talk her into [...] tied. Protocols used: Urine - Blood In-ADULT- [facility]05-10-2024 Miscellaneous Notes* Telephone Encounter - Kemal Wright [...] [facility] [place] Madonna Lim MA * Telephone Encounter - Ashanti Squires PA-C - 02/02/2024 1:40 PM EDT Please let patient know that her culture did show MRSA on her chin. I have sent a prescription for doxycycline 1 BID to the [facility]. Please use sunscreen/sun protection while on this medication as it can make you more sensitive to the sun. The following approved medication requests have been transmitted electronically. Requested Prescriptions Signed Prescriptions Disp Refills doxycycline (VIBRA-TABS) 100 mg tablet 20 tablet 0 Sig: Take 1 tablet by mouth two times a day for 10 days. Authorizing Provider: ASHANTI SQUIRES PA-C 02/02/2024 documented in this encounterUniversity Hospitals Conneaut Medical Center05-10-2024 Telephone encounter Note * Telephone Encounter - Kemal Wright LPN - 02/03/2024 10:45 AM EDT Pt notified. She verbalized understanding. Kemal Wright LPN [facility]05-10-2024 Telephone encounter Note* Telephone Encounter - Dacia Acosta MD - 02/03/2024 10:17 AM EDT She should use the doxycycline as ordered; if not improving after 2-3 days, or if symptoms worsen, then seek care in ER Dacia Acosta MD [facility]05-10-2024 Telephone encounter Note* Telephone Encounter - Madonna Lim MA - 02/03/2024 9:59 AM EDT Pt informed, verbalized understanding. Pt reports she is now urinating straight blood and reports she may have a fever. Reports she was upall night with urinary frequency. Denies any abd/back pain or vomiting. Please advise. Madonna Lim MA [facility]05-09-2024 Telephone encounter Note* Telephone Encounter - Ashanti Squires PA-C - 02/02/2024 4:43 PM EDT Please let patientknow that her urine culture was also positive for MRSA-covered by doxycycline prescribed-sent to pharmacy. Advise f/u if not improving in 2-3 days, sooner if any worsening symptoms. Seek care in ED for fever >100, vomiting, severe back/abdominal pain. [facility]05-09-2024 Telephone encounter Note* Telephone Encounter - Madonna Lim MA - 02/02/2024 3:18 PM EDT Pt informed, verbalized understanding. [facility] [place]. Madonna Lim MA [facility]05-09-2024 Telephone encounter Note* Telephone Encounter - Ashanti [...] days. Authorizing Provider: ASHANTI SQUIRES PA-C 02/02/2024 [facility]05-07-20[facility] History of Present illness Narrative* Ashanti Squires [...] is scheduled to dermatology next week in [place]. She admits to previous MRSA infection in [...] F) Resp 12 Ht 157.5 cm (5' 2") Wt 73.9 kg (163 lb) LMP 11/20/2020 [...] 01/31/2024 Ashanti Squires PA-C documented in this encounterUniversity Hospitals Conneaut Medical Center04-25-2024 Telephone encounter Note * Telephone Encounter - Ledy Orantes MA - 01/19/2024 2:13 PM EDT The [...] 180 days. Authorizing Provider: DACIA ACOSTA MA [facility]04-25-2024 Miscellaneous Notes* Telephone Encounter - Ledy Orantes MA - 01/19/2024 2:13 PM EDT The [...] you. Wendy Mcclain LPN. documented in this encounterUniversity Hospitals Conneaut Medical Center04-25-2024 Telephone encounter Note * Telephone Encounter - Dacia Acosta MD - 01/19/2024 1:57 PM EDT OK to refill as ordered Dacia Acosta MD [facility]04-25-2024 Telephone encounter Note* Telephone Encounter - Wendy [...] Please advise. Thank you. Wendy Mcclain LPN. [facility]04-03-2024 History and physical note Author Marcelina Friend [facility] December 28, 2023 8:34am Note Date/Time December 28, 2023 8:34 am [facility] Medical Records Department [address] [place] [address] History & Physical Exam 12/28/23 0833 MR#: [id number] Acct: [id number] Name: CAROLINA HIGHTOWER Rep #:[id number] : 1975 48 From: Marcelina Friend DO PCP: Dr. Dacia Acosta MD Status:[facility] [place]: [place] [address] History and Physical Date of Admission: 12/28/23 CAROLINA HIGHTOWER, is a 48 F who presented She presented to [facility] ED with increased fatigue, forgetfulness, abdominal [...] unwell. Furosemide stopped becauseit was causing nocturia. [facility] Medical History Alcohol abuse Anemia Anxiety and [...] Vitamin D3 1,250 mcg OTHER QWEEK SUPPLEMENT 08/25/22 [History Last Taken Unknown] gabapentin 100 mg [...] % (Auto) 62.4, Lymph % (Auto) 23.3, Dickenson % (Auto) 10.7 H, Eos % (Auto) [...] Sl. Cloudy, Urine pH 6.5, Ur Specific [place] 1.015, Urine Protein 30 H, Urine Glucose [...] % (Auto) 51.5, Lymph % (Auto) 30.9, Dickenson % (Auto) 13.5 H, Eos % (Auto) [...] no clinicalchanges since date of exam. 12/28/23 7036 <Electronically signed by Marcelina Friend DO> Cosigner Signature (if applicable): CC: Dr. Dacia Acosta MD; Marcelina Foster, DO~ Signed [facility] Work Phone: 1(665) 468-681904-03-2024 Procedure [facility] 12-28-2023 Procedure [facility]03-19-2024 History of Present illness Narrative* Mervin Ambrocio APRN.TRAVELING PASSENGER AGENT - 12/13/2023 1:00 PM EDT Chief Complaint Patient presents with: ER F/U: [facility] multiple times from 10/2023-11/3023: abdominal pain, cirrhosis of liver, ascites HPI Carolina Hightower is a 48 year old female who presents here today for Hospital Discharge Follow up. Patient is here for emergency room and hospital follow-up. Patient has had multiple trips to the emergency room at [facility]. This is ranged from October 2023 [...] pain. She has follow-up with gastroenterology, Dr. Foster in December. She is here today to ask for pain management of her symptoms. I discussed with her given that she has history of polysubstance abuse, narcotics would not be the recommended course of action. She is telling me that Dr. Foster's office sent her here for this management. I discussed that this is inappropriate. I discussed that if shehas diffuse abdominal pain and her area coordinator cannot fit her into his schedule, she [...] that she needs to return to her area coordinator for evaluation. I discussed that if she [...] - ONDANSETRON 4 MG DISINTEGRATING TABLET Mervin Ambrocio APRN.DEEPIKA This note was partly generated using [employer] voice recognition dictation and may contain some misspelled or inaccurate words missed on review. documented in this encounterUniversity Hospitals Conneaut Medical Center03-18-2024 Miscellaneous Notes* Telephone Encounter - Obed Mesa [...] to make it in. documented in this encounterUniversity Hospitals Conneaut Medical Center03-15-2024 Discharge summary Author Shon [facility] December 09, 2023 11:32pm Note Date/Time December 09, 2023 9:[address] [facility] Medical Records Department [address] [place] [id number] Emergency Department Summary 12/09/23 MR#: [id number] Acct: [id number] Name: CAROLINA HIGHTOWER Rep #:[id number] : [...] Method Room Air Room Air Room Air MDM <CONCHIS Robles - Last Filed: 12/09/23 22:47> MDM Lab Data Labs: Laboratory Results - last [...] % (Auto) 64.5 Lymph % (Auto) 21.5 Dickenson % (Auto) 10.8 H Eos % (Auto) [...] Clarity Clear Urine pH 6.5 Ur Specific [place] 1.020 Urine Protein 30 H Urine Glucose [...] she had a paracentesis at that time [id number] cc out. Patient states that her abdomen [...] Quintero MD - Last Filed: 12/09/23 23:32> [facility] MDM Narrative Medical decision making narrative: I [...] % (Auto) 64.5 Lymph % (Auto) 21.5 Dickenson % (Auto) 10.8 H Eos % (Auto) [...] Clarity Clear Urine pH 6.5 Ur Specific [place] 1.020 Urine Protein 30 H Urine Glucose [...] your Primary Care Provider. Call [facility] ([phone]) or report to the closest Emergency Room. Call 911 if necessary. 12/09/232246 <Electronically signed by Erik BALDERRAMA> Cosigner Signature (if applicable): 12/09/23 233 <Electronically signed by Isabelle DOOLEY> CC: Dr. Dacia Acosta MD ~ Signed [facility] Work Phone: 1(993) 449-934703-13-2024 Discharge summary Author [facility] December 07, 2023 2:39pm Note Date/Time December 07, 2023 2:[address] [facility] Medical Records Department [address] [place] [address] Discharge Summary 12/07/23 1437 MR#: [id number] Acct: [id number] Name: CAROLINA HIGHTOWER Rep #:[id number] : 1975 48 From: Son Connelly PCP: Dr. Dacia Acosta MD Status:[facility] Location: [place] [address] Providers Date of Admission: 12/04/23 Date of [...] fluid drained. 25 g IV albumin ordered. 12/05: Patient is alert and awake. Her abdominal [...] Patient can go home to see the christian science reader. CODE status: Patient does not have healthcare power of trial attorney nor living will. Full Code status. [...] % (Auto) 47.4, Lymph % (Auto) 34.6, Dickenson %(Auto) 12.2 H, Eos % (Auto) 4.6, [...] Pollack Instructions Additional Instructions / Restrictions: Advised utah-nsz-[id number] probiotic 1 tablet twice daily. Small frequent [...] Self Care Charges/Coding Visit Charges Inpatient E&M: 16446 Disch Hosp >30min 12/07/23 1439 <Electronically signed by Son Adams MD> Cosigner Signature (if applicable): CC: Dr. Dacia Acosta MD; Dr. Son Adams MD~ Signed [facility] Work Phone: 1([phone]) 805-411303-13-2024 Discharge summary Author Son Adams [facility] December 07, 2023 2:37pm Note Date/Time December 07, 2023 2:3 1pm [facility] Medical Records Department [address] [place] [address] Instructions for Home/Discharge Instructions 12/07/23 0720 MR#: [id number] Acct: [id number] Name: KATJACAROLINA RADHA Rep #:[id number] : 1975 48 From: [...] can be placed): Home, Self Care 12/07/23 6927<Electronically signed by Son Adams MD>Son Adams MD CC: PREMA Pollack; Dr. Sowmya Mirza MD; Dr. Dacia Acosta MD ~ Signed [facility] Work Phone: 1(562) 213-493903-13-2024 History of Present illness Narrative* Priscilla Del Angel RN - 12/07/2023 2:47 PM EDT TRANSITION CARE MANAGEMENT (TCM) FOLLOW-UP NOTE Provider Action/FYI: Spoke to patient. States she was admitted to [facility] Tuesday. (12/04/23) Pt states she was admitted for cirrhosis Apologized to the patient. Telephone outreach ended. Patient identified by name and date of : YES Spoke to patient Discharge Network Status: In-Network Discharge Concerns: Pt is currently admitted at [facility] plan for next outreach: No further follow up needed at this time YANELI Education Ordered -: No Signature Priscilla Del Angel RN December 07, 2023 documented in this encounterUniversity Hospitals Conneaut Medical Center03-13-2024 Consult note Author Ricardo Pollack [facility] December 07, 2023 8:01am Note Date/Time December 07, 2023 7:4 9am [facility] Medical Records Department [address] [place] [address] Consultation 12/07/23 0748 MR#: [id number] Acct: [id number] Name: CAROLINA HIGHTOWER Rep #:[id number] : 1975 48 From: Ricardo luciano DPM PCP: Dr. Dacia Acosta MD Status:AD M IN Location: [place] [address] Assessment & Plan Assessment/Plan (1) Iron deficiency [...] Pollack Jr. D.P.[facility] [phone] HPI Consult Data Date of Consult: 12/07/23 HPI Narrative Reason for Consultation: Possible ingrown toenail right hallux HPI Narrative: CAROLINA HIGHTOWER, is a 48 F who presents to [facility] on 12/04/2023 with complaint of abdominal [...] % (Auto) 48.6, Lymph % (Auto) 32.1, Dickenson % (Auto) 14.6 H, Eos % (Auto) [...] % (Auto) 47.4, Lymph % (Auto) 34.6, Dickenson %(Auto) 12.2 H, Eos % (Auto) 4.6, Baso % (Auto) 0.8, Absolute Neuts (auto) 2.5, Absolute Lymphs (auto) 1.82, Nucleated RBC % 0 12/07/23 0801 <Electronically signed by Ricardo Pollack DPM> Cosigner Signature (if applicable): CC: PREMA Pollack; Dr. Sowmya Mirza MD; Dr. Dacia Acosta MD~ Signed [facility] Work Phone: 1(554) 463-715603-12-2024 Progress note Author Son Adams [facility] December 06, 2023 4:40pm Note Date/Time December 06, 2023 4:[address] [facility] Medical Records Department [address] [place] [address] Progress Note - Hospitalist 12/06/23 1636 MR#: [id number] Acct: [id number] Name: CAROLINA HIGHTOWER Rep #:[id number] : 1975 48 From: Son Connelly PCP: Dr. Dacia Acosta MD Status:AD M IN Location: [facility] [id number] Reason for Visit Reason for Visit: Diagnoses [...] % (Auto) 48.6, Lymph % (Auto) 32.1, Dickenson % (Auto) 14.6 H, Eos % (Auto) [...] Patient can go home to see the christian science reader. CODE status: Patient does not have healthcare power of trial attorney nor living will. Full Code status. [...] follow-up instructions. Charges/Coding Visit Charges Inpatient E&M: 54299 Subs Hosp L2 12/06/23 1640 <Electronically signed by Son Adams MD> Cosigner Signature (if applicable): CC: ~ Signed [facility] Work Phone: 1(417) 892-884503-12-2024 Progress note Author Marcelina Foster [facility] December 06, 2023 4:28pm Note Date/Time December 06, 2023 4:[address] [facility] Medical Records Department [address] [place] [address] Progress Note - GI 12/06/2327 MR#: [id number] Acct: [id number] Name: CAROLINA HIGHTOWER Rep #:[id number] : 1975 48 From: Marcelina Foster DO PCP: Dr. Dacia Acosta MD Status:AD M IN Location: [place] [address] Subjective Subjective Patient feels a lot better [...] % (Auto) 48.6, Lymph % (Auto) 32.1, Dickenson % (Auto) 14.6 H, Eos % (Auto) [...] albumin ordered. Charges/Coding Visit Charges Inpatient E&M: 49096 Subs Hosp L3 12/06/23 2111 <Electronically signed by Marcelina Friend DO> Cosigner Signature (if applicable): CC: ~ Signed [facility] Work Phone: 1([phone]) 878-776703-12-2024 Discharge summary Author Son Adams [facility] December 06, 2023 11:11am Note Date/Time December 06, 2023 11: 09am [facility] Medical Records Department [address] [place] [address] Discharge Summary 12/06/23 1109 MR#: [id number] Acct: [id number] Name: CAROLINA HIGHTOWER Rep #:[id number] : 1975 48 From: Son Connelly PCP: Dr. Dacia Acosta MD Status:AD M IN Location: [place] [address] Providers Date of Admission: 12/04/23 Primary Care [...] fluid drained. 25 g IV albumin ordered. 12/05: Patient is alert and awake. Her abdominal [...] Patient can go home to see the christian science reader. CODE status: Patient does not have healthcare power of trial attorney nor living will. Full Code status. [...] % (Auto) 48.6, Lymph % (Auto) 32.1, Dickenson % (Auto) 14.6 H, Eos % (Auto) [...] Self Care Charges/Coding Visit Charges Inpatient E&M: 19175 Disch Hosp >30min 12/06/23 1111 <Electronically signed by Son Adams MD> Cosigner Signature (if applicable): CC: Dr. Dacia Acosta MD; Dr. Son Adams MD~ Signed [facility] Work Phone: 1(190) 340-895903-12-2024 Discharge summary Author Son Adams [facility] December 06, 2023 11:09am Note Date/Time December 06, 2023 7:[address] [facility] Medical Records Department [address] [place] [address] Instructions for Home/Discharge Instructions 12/06/23 0749 MR#: [id number] Acct: [id number] Name: CAROLINA HIGHTOWER #:[id number] : 1975 48 From: Son [...] Qty: 90 0RF Referrals / Follow Up: VaniNanette malaven [Other] - 04/11/24 8:00 am Dacia Acosta [...] MD>Son Adams MD CC: PREMA Pollack; Dr. Sowyma Mirza MD; Dr. Dacia Acosta MD ~ Signed [facility] Work Phone: 1([phone]) 679-614203-11-2024 Consult note Author Marcelina Foster [facility] December 05, 2023 4:37pm Note Date/Time December 05, 2023 4:3 7pm [facility] Medical Records Department [address] [place] [address] Consultation - GI 12/05/23 1633 MR#: [id number] Acct: [id number] Name: CAROLINA HIGHTOWER Rep #:[id number] : 1975 48 From: Marcelina Foster DO PCP: Dr. Dacia Acosta MD Status:AD M IN [facility] HPI Consult Data Date of Consult: 12/05/23 HPI Narrative Reason for Consultation: Ascites HPI Narrative: CAROLINA HIGHTOWER, is a 48 F who presented She presented to [facility] ED with increased fatigue, forgetfulness, abdominal [...] r/t right colon. Fib4 8.76 CT abd/pel 05.19.22 with cirrhotic liver with prominent caudate lobe [...] % (Auto) 62.4, Lymph % (Auto) 23.3, Dickenson % (Auto) 10.7 H, Eos % (Auto) [...] Sl. Cloudy, Urine pH 6.5, Ur Specific [place] 1.015, Urine Protein 30 H, Urine Glucose [...] % (Auto) 51.5, Lymph % (Auto) 30.9, Dickenson % (Auto) 13.5 H, Eos % (Auto) [...] prophylaxis: SCDs Charges/Coding Visit Charges Inpatient E&M: 98535 Init Hosp L3 12/05/23 1637 <Electronically signed by Marcelina Friend DO> Cosigner Signature (if applicable): CC: Dr. Sowmya Mirza MD; Dr. Dacia Acosta MD~ Signed [facility] Work Phone: 1(647) 746-578203-11-2024 Progress note Author [facility] December 05, 2023 2:40pm Note Date/Time December 05, 2023 8:2 4am [facility] Medical Records Department [address] [place] [address] Progress Note - Hospitalist 12/05/23 0815 MR#: [id number] Acct: [id number] Name: CAROLINA HIGHTOWER Rep #:[id number] : 1975 48 From: Son Connelly PCP: Dr. Dacia Acosta MD Status:AD M IN Location: [place] [address] Reason for Visit Reason for Visit: Diagnoses [...] % (Auto) 62.4, Lymph % (Auto) 23.3, Dickenson % (Auto) 10.7 H, Eos % (Auto) [...] Sl. Cloudy, Urine pH 6.5, Ur Specific [place] 1.015, Urine Protein 30 H, Urine Glucose [...] % (Auto) 51.5, Lymph % (Auto) 30.9, Dickenson % (Auto) 13.5 H, Eos % (Auto) [...] Patient does not have healthcare power of trial attorney nor living will. Full Code status. Charges/Coding Visit Charges Inpatient E&M: 14186 Subs Hosp L2 12/05/23 1440 <Electronically signed by Son Adams MD> Cosigner Signature (if applicable): CC: ~ Signed [facility] Work Phone: 1(354) 453-366103-11-2024 Procedure [facility] 12-04-2023 History and physical note Author Sowmya Mirza [facility] December 04, 2023 9:28pm Note Date/Time December 04, 2023 8:[address] [facility] Medical Records Department [facility] [place] [address] H&P Exam - Hospitalist 12/04/232032 MR#: [id number] Acct: [id number] Name: CAROLINA HIGHTOWER Rep #:[id number] : 1975 48 From: Sowmya Mirza MD PCP: Dr. Dacia Acosta MD Status:AD M IN Location: [address] 1 HPI - General General Date of Admission: 12/04/23 Date of Service: 12/04/23 Chief Complaint: Abdominal pain, dysuria. HPI Narrative The patient is a 48 y/o F w/ PMHx: Obesity, Chronic anemia/iron deficiency anemia, Anxiety and Depression, Chronic hepatitis C/cirrhosis with chronic LFT/Bilirubin elevations w/ Hx polysubstance abuse (heroin, cannabis, methamphetamine), Tobacco use, Chronic thrombocytopenia who presents to the [facility] ED on 12/04/23 with history of [...] % (Auto) 62.4, Lymph % (Auto) 23.3, Dickenson % (Auto) 10.7 H, Eos % (Auto) [...] Sl. Cloudy, Urine pH 6.5, Ur Specific [place] 1.015, Urine Protein 30 H, Urine Glucose [...] use, Chronic thrombocytopenia who presents to the [facility] ED on 12/04/23 with history of [...] Patient does not have healthcare power of trial attorney nor [facility]. Full Code status. Charges/Coding Visit Charges Inpatient E&M: 12426 Init Hosp L3 12/04/232127 <Electronically signed by Sowmya Mirza MD> Cosigner Signature (if applicable): CC: Dr. Sowmya Mirza MD; Dr. Dacia Acosta MD~ Signed [facility] Work Phone: [phone]) [phone] Discharge summary Author Mica Díaz [facility] December 04, 2023 9:05pm Note Date/Time December 04, 2023 6:1 5pm [facility] Medical Records Department [address] [place] [address] Emergency Department Summary 12/04/23 MR#: [id number] Acct: [id number] Name: CAROLINA HIGHTOWER Rep #:[id number] : 1975 48 From: Emperatriz Craig MD PCP: Dr. Dacia Acosta MD Status:AD M IN Location: [facility] [id number]- 1 <Statement entered by Emperatriz Craig MD [...] her UTI. We discussed case with Dr. Foster, her GI specialist as well as hospitalist [...] encephalopathy. I did discuss this with Dr. Foster, he recommends paracentesis. I will discuss the [...] % (Auto) 62.4 Lymph % (Auto) 23.3 Dickenson % (Auto) 10.7 H Eos % (Auto) [...] Sl. Cloudy Urine pH 6.5 Ur Specific [place] 1.015 Urine Protein 30 H Urine Glucose [...] Tejas Bhakta MD at 19:07 EDT , Discharge Plan Triage Chief Complaint: Complaint Other Complaint: Abd Pain ED Midlevel Provider: Mica Díaz ED Provider: Emperatriz Craig Dx/Rx/DC Orders Clinical Impression: Abdominal ascites, UTI (urinary tract infection), Hepatitis C, chronic, Cirrhosis of liver, Encephalopathy, hepatic Primary Care Provider: Dacia Acosta Disposition Disposition: [facility] What to do if you have Problems For any increased pain, shortness of breath, bleeding, nausea or vomiting, chestpain, or any unexpected problems, contact your Primary Care Provider. Call [facility] ([phone]) or report to the closest Emergency Room. Call 911 if necessary. 12/04/232033 <Electronically signed by Emperatriz Craig MD> Cosigner Signature (if applicable): 12/04/232104 <Electronically signed by Mica Díaz PA> CC: Dr. Dacia Acosta MD ~ Signed [facility] Work Phone: 1(908) 243-923403-10-2024 Discharge summary Author Mica Díaz [facility] December 04, 2023 9:05pm Note Date/Time December 04, 2023 6:[address] [facility] Medical Records Department [address] [place] [address] Emergency Department Summary 12/04/23 MR#: [id number] Acct: [id number] Name: CAROLINA HIGHTOWER Rep #:[id number] : 1975 48 From: Emperatriz Craig MD PCP: Dr. Dacia Acosta MD Status:AD M IN Location: [facility] [id number] <Statement entered by Emperatriz Craig MD [...] her UTI. We discussed case with Dr. Foster, her GI specialist as well as hospitalist [...] encephalopathy. I did discuss this with Dr. Foster, he recommends paracentesis. I will discuss the [...] % (Auto) 62.4 Lymph % (Auto) 23.3 Dickenson % (Auto) 10.7 H Eos % (Auto) [...] Sl. Cloudy Urine pH 6.5 Ur Specific [place] 1.015 Urine Protein 30 H Urine Glucose [...] Tejas Bhakta MD at 19:07 EDT , Discharge Plan Triage Chief Complaint: Complaint Other Complaint: Abd Pain ED Midlevel Provider: Mica Díaz ED Provider: Emperatriz Craig Dx/Rx/DC Orders Clinical Impression: Abdominal ascites, UTI (urinary tract infection), Hepatitis C, chronic, Cirrhosis of liver, Encephalopathy, hepatic Primary Care Provider: Dacia Acosta Disposition Disposition: Acute Care Hospital [facility] What to do if you have Problems For any increased pain, shortness of breath, bleeding, nausea or vomiting, chestpain, or any unexpected problems, contact your Primary Care Provider. Call [facility] ([phone]) or report to the closest Emergency Room. Call 911 if necessary. 12/04/232033 <Electronically signed by Emperatriz Craig MD> Cosigner Signature (if applicable): 12/04/232104 <Electronically signed by Mica Díaz PA> CC: Dr. Dacia Acosta MD ~ Signed [facility] Work Phone: 1(213) 413-923303-04-2024 Miscellaneous Notes* Telephone Encounter - Melisa Vick [...] advise, Vanessa Babcock RN documented in this encounterUniversity Hospitals [facility]aut [facility] Center03-02-2024 History of Present illness Narrative* Dacia Acosta MD - 11/26/2023 10:20 AM EST Transitional Care Management [facility] Eligibility Documentation Program: Transitional Care Management [...] Pt here today for a 7 day [facility] Hospital follow up. Pt admitted into [facility] on 11/18/23 for abdominal pain [...] a while, but has an appt Dr. Foster at the end of this month. Breathing [...] she has been evaluated multiple times at [facility] for similar symptoms. Paracentesis has been [...] IV Rocephin tomorrow, patient had paracentesis in [facility] without any significant results, he had paracentesis [...] month Dacia Acosta MD documented in this encounterUniversity Hospitals Conneaut Medical Center03-01-2024 History of Present illness Narrative* Priscilla Del Angel RN - 11/25/2023 11:25 AM EST documented in this encounterUniversity Hospitals Conneaut Medical Center02-29-2024 History of Present illness Narrative* Soco Telles, [facility] - 11/24/2023 9:21 AM EST TRANSITION CARE [...] she has been evaluated multiple times at [facility] for similar symptoms. Paracentesis has been [...] IV Rocephin tomorrow, patient had paracentesis in [facility] without any significant results, he had paracentesis [...] and case management PATIENT CONDITION AT DISCHARGE: Stable" Medication Reconciliation: Legend: Stopped, New, Changed, Added to list Medication List Medication Directions Comments Action/Plan Discontinued: 11/23/2023 3:41 PM albuterol HFA (PROAIR HFA) 90 mcg/actuation inhaler Inhale 2 Puffs as instructed every 4 hours as needed. [facility] [place] ascorbic acid, vitamin C, (VITAMIN C) 500 mg tablet Take 1 tablet by mouth once daily. [facility] [place] Discontinued: 11/17/2023 7:36 PM NO RECENT DISPENSES Discontinued: 11/17/2023 7:36 PM NO RECENT DISPENSES Discontinued: 11/17/2023 7:36 PM NO RECENT DISPENSES Discontinued: 11/17/2023 7:36 PM NO RECENT DISPENSES ferrous sulfate 325 mg (65 mg iron) tablet Take 1 tablet by mouth once daily. [facility] [place] furosemide (LASIX) 20 mg tablet Take 1 tablet by mouth once daily. gabapentin (NEURONTIN) 100 mg capsule Take 1 capsule by mouth twice daily for 180 days. hydrOXYzine HCl (ATARAX) 25 mg tablet Take 1 tablet by mouth every 8 hours as needed. [facility] [place] Per AVS "Patient will also be started on hydroxyzine for anxiety " lactulose (DUPHALAC, CONSTULOSE) 10 gram/15 mL solution [...] 1 tablet once daily for 3 days. [facility] [place] #18 tabs spironolactone (ALDACTONE) 50 mg tablet Take 1 tablet by mouth once daily. [facility] [place] Potassium Date Value Ref Range Status 11/23/2023 4.2 3.5 - 5.1 mmol/L Final Discontinued: 11/17/2023 7:37 PM NO RECENT DISPENSES Discontinued: 11/17/2023 7:37 PM NO RECENT DISPENSES Preferred pharmacy: [facility] [place] [address] [address] [facility] [phone] [address] [facility] [address] [facility] - [address] [place] [address] - [address] [phone] [address] [place] [address] Estimated Creatinine Clearance: 85.8 mL/min (based on SCr of 0.78 mg/dL). Estimated Glomerular Filtration Rate (mL/min/1.73m ) Date Value 11/23/2023 93 eGFR- (no units) Date Value 06/24/2021 >60 Additional follow up: Next 5 Appointments None Interventions Made: None Pharmacist Recommendations Made None Care Coordination: None at this time Time spent on patient: 15-30 minutes Soco Telles RPh November 24, 2023 9:21 AM documented in this encounterUniversity Hospitals Conneaut Medical Center02-28-2024 NoteHNO ID: [id number] Author: AR PIERCE RN Service: Care Management [...] list of mental health facilities in the [place] area. Denies any other needs. Case closed. SIGNATURE: rA Pierce RN PATIENT NAME: Carolina Hightower DATE: November 23, 2023 TIME: 2:11 PM CONTACT #: [phone] Hospital02-27-2024 NoteHNO ID: [id number] Author: AMOR HERNANDEZ MD Service: Hospital Medicine [...] sepsis from SBP, patient had paracentesis at [facility] ER several days ago, today abdominal [...] (Src) 98 (Oral) Resp 16 Ht 5' 2" (1.58m) Wt 191 lb 4.8 oz (86.8kg) [...] CREAT 0.81 0.73 0.95 HEPATIC: Recent Labs 11/20/2335611/19/2334811/17/232007 ALT 32 31 29 AST 76* 65* 78* TBILI 2.2* 2.2* 3.0* ALKPHOS 130* 158* 245* ALB 2.4* 1.9* 2.6* TPROT 7.0 6.8 7.8 LIPASE -- -- 23 URINALYSIS: Recent Labs 11/17/232013 SPGR >=1.030* UBACTERIA Few* LEUKEST Negative UWBC 0-5 /HPF URBC 6-10 /HPF* UHB 1+* UPROT 1+* UGLUC Negative UKET Negative COAG: Recent Labs 11/20/23 0357 APTT 45.7* INR 2.3* CARDIAC: Recent Labs 11/17/232007 PBNP 83 DATA: Diagnostic tests reviewed for today's visit: Most recent labs and imaging results. Most recent EKG Urine Culture: Positive Micro-30 Days No results found for the last 720 hours. Blood Culture: Positive Micro-30 Days No results found for the last 720 hours. Medication and Non-Pharmacologic VTE Prophylaxis/Anticoagulants 11/18/231744 vte current anticoag therapy ([place], [place]) 11/18/231744 activity - mobilize patient ([place]) VTE Prophylaxis: VTE prophylaxis appropriate Assesment: [...] was reviewed. Patient sti (more content not included)...[facility]02-27-2024 NoteHNO ID: [id number] Author: AR PIERCE RN Service: Care Management Author Type: Registered Nurse Type: Care Mgt Initial Assessment Filed: 11/22/2023 07:34 Note Text: CARE MANAGEMENT: ASSESSMENT AND DISCHARGE PLAN SERVICE DATE: November 22, 2023 SERVICE TIME: 7:18 AM PCP: Dacia Acosta MD, saw 6 months ago Primary Contact: Extended Emergency Contact Information Primary Emergency Contact: Geni Morrella Relation: Mother Secondary Emergency Contact: Osmin Lorenzo Mobile Relation: Significant other Admission Status: Inpatient Insurance Provider: [employer] Discharge Planning requested by: Patient Potential Transition Plans Home Advance Directives Current Advance Directive: None [employer] Attempted to Assist with AD Completion: Yes [...] Be able to go home, General wellness [place] of [place] Explained: [place] of [place] Given: No Reason Not Given: [...] abdominal pain and distention.Was a transfer from [facility], went to the ICU after a rapid response. Discharge plan to return to home, lives with significant other. They rent a room off of some friends, has bathroom and kitchen privileges. Neither of them drive, usually walks, uses insurance for doctor visits, or friends transport. She quit taking her medications 6 months ago along with mental health services at [facility]. She would like information on services in [facility] for mental health. She states she can use her insurance for the appointments. Will give her the information. She is unsure she will need transportation to home. Will continue to follow. SIGNATURE: Ar Pierce RN PATIENT NAME: Carolina Hightower DATE: November 22, 2023 TIME: 7:18 AM CONTACT #: [phone] District Hospital02-26-2024 NoteHNO ID: [id number] Author: AMOR HERNANDEZ MD Service: Hospital Medicine [...] sepsis from SBP, patient had paracentesis at [facility] ER several days ago, today complaining [...] (Src) 98.7 (Axillary) Resp 16 Ht 5' 2" (1.58m) Wt 191 lb 11.2 oz (87.0kg) [...] grossly. Psych normal affect. DATA: Recent Labs 11/19/2315 PCGLUCOSE 103* LABORATORY TESTS: CBC: Recent Labs [...] UGLUC Negative UKET Negative COAG: Recent Labs 11/20/23 0357 APTT 45.7* INR 2.3* CARDIAC: Recent Labs 11/17/232007 PBNP 83 DATA: Diagnostic tests reviewed for today's visit: Most recent labs and imaging results. Most recent EKG Urine Culture: Positive Micro-30 Days No results found for the last 720 hours. Blood Culture: Positive Micro-30 Days No results found for the last 720 hours. Medication and Non-Pharmacologic VTE Prophylaxis/Anticoagulants 11/18/231744 vte current anticoag therapy ([place]) 11/18/231744 activity - mobilize patient ([place]) VTE Prophylaxis: VTE prophylaxis appropriate Assesment: [...] taper down steroids, contin (more content not included)...[facility] 11-20-2023 NoteHNO ID: [id number] Author: MARIAH STEWART MD Service: Critical Care Author Type: Physician Type: Progress Notes Filed: 11/20/2023 15:28 Note Text: [facility] STAFF PHYSICIAN NOTE OF PERSONAL INVOLVEMENT IN CARE I have reviewed the progress note obtained and documented by the DARIWN. I have personally performed a face to [...] Stewart MD [facility] DATE of SERVICE: 11/20/2023[facility]02-25-2024 NoteHNO ID: [id number] Author: MARIAH TRAVIS APRN.TRAVELING PASSENGER AGENT Service: Critical Care Author Type: Nurse Practitioner Type: Progress Notes Filed: 11/20/2023 10:02 Note Text: PULMONARY/CRITICAL CARE INTENSIVE MEDICAL/SURGICAL CARE UNIT PROGRESS NOTE Patient Name: Carolina Hightower Account #: Data Unavailable Admission Date: 11/18/2023 Date of Evaluation: 11/20/2023 Time of Evaluation: 9:44 AM SUBJECTIVE Transferred from [place] for paracentesis. Treated for COPD exacerbation with hypercapnia. Improved today, mentation improved. Complaining of headache. Plan for paracentesis tomorrow. Tolerating a diet, no nausea vomiting diarrhea. VITALS 11/20/23 0700 11/20/23 0800 11/20/23 0827 11/20/23 0900 BP: 113/55 120/70 120/70 128/76 Pulse: 66 82 66 (!) 59 Resp: 13 13 Temp: 36.6 ?C (97.9 ?F) TempSrc: [...] and hypercapnia Toxic metabolic (more content not included)...[facility]02-24-2024 NoteHNO ID: [id number] Author: MARIAH STEWART MD Service: Critical Care Author Type: Physician Type: Progress Notes Filed: 11/19/2023 13:58 Note Text: [facility] STAFF PHYSICIAN NOTE OF PERSONAL INVOLVEMENT [...] of care, medical plan for the day, pension consultant recommendations, medical disposition and current medical [...] Stewart MD [facility] DATE of SERVICE: 11/19/2023[facility]02-24-2024 NoteHNO ID: [id number] Author: NILA MOLINA MD Service: Hospital Medicine [...] and diffuse tenderness. Patient was transferred to [facility] for further care. At the [...] (Src) 98.4 (Oral) Resp 18 Ht 5' 2" (1.58m) Wt 189 lb 5 oz (85.9kg) [...] -- 0.8 COAG: No results for input(s): "APTT", "INR" in the last 168 hours. BMP: Recent [...] 0-5 /HPF CARDIAC: No results for input(s): "CKTEST", "CKMB", "CKMBP" in the last 168 hours.TROPONIN@:8,No results found for: "BNP":8)@ No intake or output data in the [...] Acute hypoxemic respiratory failu (more content not included)...[facility]02-24-2024 NoteHNO ID: [id number] Author: JONATHAN RODAS, RN Service: Nursing Author Type: Registered Nurse Type: Nursing Progress Note Filed: 11/19/2023 07:36 Note Text: Rapid response called at this time. See rapid response flow sheet and provider note.[facility]02-16-2024 Miscellaneous Notes* Telephone Encounter - Melisa Vick Ma - 11/11/2023 1:33 PM EST Pt notified. She was told her appt with us will be cancelled and to go to ER for care. Melisa Nicanor Espinal * Telephone Encounter - Dacia Acosta MD - 11/11/2023 11:58 AM EST With severe abdominal pain she is better off going to the ER, I am limited in what I can do to evaluate and treat her pain. Dacia Acosta MD * Telephone Encounter - Janna Troncoso RN - 11/11/2023 10:29 AM EST Patient [...] voice and tearful. Reports she is having "excruciating belly pain". Reports she has been to [facility] ER 3 times in last week. [...] Provider. Patient unable to confirm any upcoming [facility] appt as of now. This nurse attempted to contact [facility] x 3-no answer at this time and voicemail asks to leave message and they will return call within 24 hours. Pt asking if she must go back to [facility] ER now or can she try to come to her ER F/U appt with Dr. Bell this afternoon? Thank you. documented in this encounterUniversity Hospitals Conneaut [facility] Center02-12-2024 Miscellaneous Notes* Telephone Encounter - Dacia Acosta MD - 11/07/2023 5:58 PM EST Noted Dacia Acosta MD * Telephone Encounter - Jesi Jason LPN - 11/07/2023 4:21 PM EST Pt calls to report she went to [facility] ER today for abdominal pain and [...] no Jesi Jason LPN documented in this encounterUniversity Hospitals Conneaut Medical Center02-12-2024 Discharge summary Author Yimi Hutchinson [facility] November 07, 2023 10:34am Note Date/Time November 07, 2023 7:34am [facility] Medical Records Department [address] [place] [address] Emergency Department Summary 11/07/23 MR#: [id number] Acct: [id number] Name: CAROLINA HIGHTOWER Rep #:[id number] : [...] Oxygen Delivery Method Room Air Room Air MDM MDM MDM Narrative Medical decision making narrative: HISTORY OF [...] History obtained from others: none Consults: none MDM Narrative: Patient was hemodynamically stable, afebrile, nontoxic-appearing. [...] Discharge home This note was generated with Incl[employer]eme[employer] dictation software. It may contain incorrectwords, spelling, [...] % (Auto) 62.0 Lymph % (Auto) 23.6 Dickenson % (Auto) 9.6 Eos % (Auto) 3.5 [...] Sl. Cloudy Urine pH 6.0 Ur Specific [place] 1.020 Urine Protein 30 H Urine Glucose [...] Please follow with your primary care physician, area coordinator for further outpatient evaluation and management. Disposition Disposition: Home, Self Care What to do if you have Problems For any increased pain, shortness of breath, bleeding, nausea or vomiting, chestpain, or any unexpected problems, contact your Primary Care Provider. Call [employer] [facility] ([phone]) or report to the closest Emergency Room. Call 911 if necessary. 11/07/23 1034 <Electronically signed by Yimi Hutchinson DO> Cosigner Signature (if applicable): CC: Dr. Dacia Acosta MD ~ Signed [facility] Work Phone: 1(540) 225-236102-10-2024 Discharge summary Author Jake Harding [facility] November 05, 2023 9:27pm Note Date/Time November 05, 2023 7:33pm [facility] Medical Records Department [address] [place] [address] Emergency Department Summary 11/05/23 MR#: [id number] Acct: [id number] Name: CAROLINA HIGHTOWER Rep #:[id number] : 1975 48 From: Jake Harding MD PCP: Dr. Dacia Acosta MD Status:RE G ER Location: ED HPI HPI - GI History of Present Illness Chief Complaint: Abd Pain Informant: patient Narrative Narrative: Patient presents with chief complaint of, "I do not feel well." It takes quite a bit of questioning [...] anything in a few weeks because she "cannot eat." When I asked when she last ate [...] I encouraged her to call her gastroentero radiology asst Tuesday for follow-up and recheck. Lab Data [...] % (Auto) 57.9 Lymph % (Auto) 29.7 Dickenson % (Auto) 8.4 Eos % (Auto) 3.2 [...] Sl. Cloudy Urine pH 6.0 Ur Specific [place] 1.025 Urine Protein 30 H Urine Glucose [...] your Primary Care Provider. Call [facility] ([phone]) or report to the closest Emergency Room. Call 911 if necessary. 11/05/232126 <Electronically signed by Jake Harding MD> Cosigner Signature (if applicable): CC: Dr. Dacia Acosta MD ~ Signed [facility] Work Phone: [phone]) 611-338802-08-2024 Miscellaneous Notes* Telephone Encounter - Mary Orozco RN - 11/03/2023 3:56 PM EST Patient returns call and provider message reviewed. Patient verbalizes understanding and will call back if wants to schedule appointment with PCP. Mary Orozco RN * Telephone Encounter - Maye Younger LPN - 11/03/2023 3:18 PM EST TC to Pt. Unable to LM due to the mailbox is full. Sent a My Chart message. Maye Younger LPN * Telephone Encounter - Latasha William PA-C - 11/03/2023 3:03 PM EST I sent Zofran to help with the nausea. Would recommend continuing the mupirocin and doxycycline. Recommended yesterday that she put a large bandage over the wound so she cannot pick at it. At this point she needs to follow-up with PCP or dermatology for chronic skin issue. * Telephone Encounter - Mary Orozco RN - 11/03/2023 2:34 PM EST Patient [...] advise, Mary Orozco RN documented in this encounterUniversity Hospitals Conneaut Medical Center02-06-2024 History of Present illness Narrative* Latasha William PA-C - 11/01/2023 4:24 PM EST Images from the original note were not included. This note was created using [employer]. Subjective Carolina Hightower is a 48 year [...] PAST SURGICAL HISTORY OF 2018 liver bx [facility] FAMILY HISTORY Problem Relation Age of Onset [...] follow-up with dermatology and given referral to [facility] and [facility]. Patient voiced understanding. Feeling great complaints medicated not sure I know the vaginal I canceled we are transportation issues like - CONSULT TO DERMATOLOGY Latasha William PA-C documented in this encounterUniversity Hospitals Conneaut Medical Center02-06-2024 Instructions* Patient Instructions* Latasha William PA-C - 11/01/2023 4:05 PM EST [facility] Dermatology [address], [place] [address] documented in this encounterUniversity Hospitals Conneaut Medical Center01-13-2024 Discharge summary Author Oscar Pantoja [facility] 2023 9:39am Note Date/Time 2023 9 :37am [facility] Medical Records Department [address] [place] [address] Discharge Summary 10/08/23 0937 MR#: [id number] Acct: [id number] Name: CAROLINA HIGHTOWER Rep #:[id number] : 1975 48 From: Oscar Pantoja MD PCP: Dr. Dacia Acosta MD Status:AD M IN Location: [facility] DC236-7 Providers Date of Admission: 10/07/23 Date of [...] % (Auto) 56.5, Lymph % (Auto) 27.9, Dickenson %(Auto) 11.0 H, Eos % (Auto) 3.2, [...] Admit Date/Time: 10/07/23 14:16 Attending Provider: Oscar Pnatoja Primary Care Provider: Dacia Acosta Consulting Providers: [...] Self Care Charges/Coding Visit Charges Inpatient E&M: 38864 Disch Hosp >30min 10/08/23 0939 <Electronically signed by Oscar Pantoja MD> Cosigner Signature (if applicable): CC: Dr. Oscar Pantoja MD; Dr. Dacia Acosta MD~ Signed [facility] Work Phone: 1(943) 136-188801-13-2024 Progress note Author Oscar Pantoja [facility] 2023 9:37am Note Date/Time 2023 7 :49am [facility] Medical Records Department [address] [place] [address] Progress Note - Hospitalist 10/08/23 0748 MR#: [id number] Acct: [id number] Name: CAROLINA HIGHTOWER Rep #:[id number] : 1975 48 From: Oscar Pantoja MD PCP: Dr. Dacia Acosta MD Status:AD M IN Location: [place] [address]-1 Reason for Visit Reason for Visit: Diagnoses [...] % (Auto) 56.5, Lymph % (Auto) 27.9, Dickenson %(Auto) 11.0 H, Eos % (Auto) 3.2, [...] documentation, 35Minutes Charges/Coding Visit Charges Inpatient E&M: 64656 Subs Hosp L2 10/08/23 0937 <Electronically signed by Oscar Pantoja MD> Cosigner Signature (if applicable): CC: ~ Signed [facility] Work Phone: 1(959) 770-871401-12-2024 Progress note Author [facility] October 07, 2023 8:04am Note Date/Time October 07, 2023 8 :04am [facility] Medical Records Department [address] [place] [address] Progress Note - Hospitalist 10/07/23 0757 MR#: [id number] Acct: [id number] Name: CAROLINA HIGHTOWER Rep #:[id number] : 1975 47 From: Oscar Pantoja MD PCP: Dr. Dacia Acosta MD Status:AD M MARTHA Location: MS3 TP469-7 Reason for Visit Reason for Visit: Diagnoses [...] % (Auto) 64.6, Lymph % (Auto) 23.6, Dickenson % (Auto) 8.2, Eos % (Auto) 2.5, Baso % (Auto) 0.8, Absolute Neuts (auto) 4.6, Absolute Lymphs (auto) 1.70, Nucleated RBC % 0, Platelet Estimate MOD DEC, RBC Morphology N CHROM, Hypochromasia 1+, Anisocytosis 1+, Microcytosis1+, Ovalocytes RARE, Sodium 140, Potassium 3.3 L, Chloride 110 H, Carbon Cbfhzdl94.0, Anion Gap 5, BUN 6 L, Creatinine [...] % (Auto) 53.9, Lymph % (Auto) 31.1, Dickenson %(Auto) 10.9 H, Eos % (Auto) 3.2, [...] symptomatic or hemoglobin falls below 7. EGD 12.21.22?noting Grade I esophagealvarices; severe portal HTN gastropathy. [...] documentation, 50Minutes Charges/Coding Visit Charges Inpatient E&M: 39232 Subs Hosp L3 10/07/23 0804 <Electronically signed by Oscar Pantoja MD> Cosigner Signature (if applicable): CC: ~ Signed [facility] Work Phone: 1(445) 529-506601-12-2024 History and physical note Author Elena [facility] October 07, 2023 2:09am Note Date/Time October 06, 2023 1 0:13pm [facility] Medical Records Department [address] [place] [address] History & Physical Exam 10/06/23 2211 MR#: [id number] Acct: [id number] Name: CAROLINA HIGHTOWER Rep #:[id number] : 1975 47 From: Elena Hoff MD PCP: Dr. Dacia Acosta MD Status:CLEOPATRA THOMAS [facility] - General General Date of Admission: [...] in the ED were BP of 105/76, [place] of 66, RR of 16 and temp [...] likely due to ascites from liver cirrhosis [facility] Medical History Acute insomnia Anemia Anxiety and [...] no sensory deficits noted Coordination / Balance: fmfjsb-ob-xmya test normal Motor Exam: strength 5/5 throughout [...] % (Auto) 64.6, Lymph % (Auto) 23.6, Dickenson % (Auto) 8.2, Eos % (Auto) 2.5, Baso % (Auto) 0.8, Absolute Neuts (auto) 4.6, Absolute Lymphs (auto) 1.70, Nucleated RBC % 0, Platelet Estimate MOD DEC, RBC Morphology N CHROM, Hypochromasia 1+, Anisocytosis 1+, Microcytosis1+, Ovalocytes RARE, Sodium 140, Potassium 3.3 L, Chloride 110 H, Carbon Uhnhuop35.0, Anion Gap 5, BUN 6 L, Creatinine [...] 20:37 EST Reading Location ID and State: [facility] / [place] , Service support , Assessment & Plan [...] due to massive ascites. * Admit to [facility]. For paracentesis tomorrow. * Was on IV [...] but occasionally and last drink was at [place] and . Counseled to quit. Will hold off on starting alcohol withdrawal protocol now as there are no signs of withdrawal. * DVT prophylaxis: SCDs Charges/Coding Visit Charges Inpatient E&M: 06397 Init Hosp L3 10/07/23 0209 <Electronically signed by Elena Hoff MD> Cosigner Signature (if applicable): CC: Dr. Dacia Acosta MD; Dr. Elena Hoff MD~ Signed [facility] Work Phone: 1([phone]) 217-527901-12-2024 Discharge summary Author Darius Rosales [facility] October 06, 2023 10:16pm Note Date/Time October 06, 2023 7 :28pm [facility] Medical Records Department [address] [place] [address] Emergency Department Summary 10/06/23 MR#: [id number] Acct: [id number] Name: CAROLINA HIGHTOWER Rep #:[id number] : 1975 47 From: Darius Rosales DO PCP: Dr. Dacia Acosta MD Status:RE G ER Location: ED HPI HPI - GI History of Present Illness Chief Complaint: Abd Pain Narrative Narrative: 66-year-old female with history of cirrhosis, ascites,, abdominal pain. Patientstates she has a history of cirrhosis and has paracentesis every couple of weeks. She sees Dr. Foster. Patient states that she recently was started [...] she had hepatitis C as well PFSH PFS Medical History Acute insomnia Anemia Anxiety and [...] LFTs are always elevated. Discussed with Dr. Foster who recommend admission for paracentesis. She will [...] % (Auto) 64.6 Lymph % (Auto) 23.6 Dickenson % (Auto) 8.2 Eos % (Auto) 2.5 [...] 20:37 EST Reading Location ID and State: [address] [place] [address] , Service support , Discharge Plan Triage Chief Complaint: Abd [...] your Primary Care Provider. Call [facility] ([phone]) or report to the closest Emergency Room. Call 911 if necessary. 10/06/232215 <Electronically signed by Darius Rosales DO> Cosigner Signature (if applicable): CC: Dr. Dacia Acosta MD ~ Signed [facility] Work Phone: [phone]) 997-150112-26-2023 Telephone encounter Note* Telephone Encounter - Emperatriz Chacon LPN - 09/20/2023 9:58 AM EST Unable to contact patient X2 [id number] Miscellaneous Notes* Telephone Encounter - Emperatriz Chacon LPN - 09/20/2023 9:58 AM EST Unable to contact patient X2 * Telephone Encounter - Emperatriz Chacon LPN - 09/16/2023 10:04 AM EST S: Patient admitted to: [facility] 09/09/23 B: Discharged on : 09/15/23 A: Hospital follow up call initiated to discuss any medication changes, follow up appointments and discharge instructions: Small bowel obstruction R: No contact x 1 at : [phone] documented in this encounterSMercy Health Lorain [id number] Telephone encounter Note* Telephone Encounter - Emperatriz Chacon LPN - 09/16/2023 10:04 AM EST S: Patient admitted to: [facility] 09/09/23 B: Discharged on : 09/15/23 A: Hospital follow up call initiated to discuss any medication changes, follow up appointments and discharge instructions: Small bowel obstruction R: No contact x 1 at : [phone] [facility]12-21-2023 Note* Care Coordination - MIRIAM Goldsmith - 09/15/2023 4:00 PM EST Social work follow up on discharge. SW notified by patients bedside RN patient needs assist with transport to home. SHELL spoke to patient to confirm address on file is correct. She reports she typically will use her [employer] for transport and uses their uber/lyft service. SHELL placed call to [facility] [facility] [phone]. Transport arranged for orange picker at [address] [place] [address] between 4:12-6:12pm.They will call the unit 15 minutes prior to their arrival . Ref # [id number]. nursing home social worker updated patients bedside RN, who will update the patient. [facility]12-21-2023 Note* Care Coordination - MIRIAM Goldsmith - 09/15/2023 4:00 PM EST Social work follow up on discharge. SHELL notified by patients bedside RN patient needs assist with transport to home. SHELL spoke to patient to confirm address on file is correct. She reports she typically will use her [employer] for transport and uses their uber/lyft service. SHELL placed call to [facility] [facility] [phone]. Transport arranged for orange picker at [address] [facility] between 4:12-6:12pm.They will call the unit 15 minutes prior to their arrival . Ref # [id number]. nursing home social worker updated patients bedside RN, who will update the patient. [facility]12-21-2023 Miscellaneous Notes* Care Coordination - MIRIAM Goldsmith - 09/15/2023 4:00 PM EST Social work follow up on discharge. SW notified by patients bedside RN patient needs assist with transport to home. SW spoke to patient to confirm address on file is correct. She reports she typically will use her [employer]ohn[employer] for transport and uses their uber/lyft service. [facility] [phone]. Transport arranged for orange picker at [address] [place] [address] between 4:12-6:12pm.They will call the unit 15 minutes prior to their arrival . Ref # [id number]. nursing home social worker updated patients bedside RN, who will [...] No GMLOS Documented * Care Coordination - Mge Herrmann RN - 09/12/2023 10:19 AM EST Care Managment Initial Assessment Date: 09/12/2023 Patient Name: Carolina Hightower : 1975 Patient Information Source of Information: Patient Cognition/Language: WFL - Within Functional Limits Permission given to speak with patient inside account representative/caregiver as indicated: Yes Confirmation of Payer with patient/family: Yes Payer Name: [employer] [place]: No Confirmation of Primary Care Physician: Confirmed [...] pain, nausea and vomiting, hx: polysubstance abuse. [place] diet and Addiction Medicine consulted. Discharge plan home with Significant Other. Meg Herrmann RN * Care Coordination - Kaylin Rivera RN - 09/11/2023 3:56 PM EST Attempted to complete Initial assessment over the phone. Patient currently unavailable/off unit. Will try again as time allows. TCC will follow. documented in this [facility]12-21-2023 NoteDischarge Summary Carolina Hightower : 1975 [...] (98.3 ?F) (Temporal) Resp 18 Ht 5' 2.01" (1.575 m) SpO2 98% Pulse Ox: SpO2 [...] SIGNIFICANT DIAGNOSTIC STUDIES: US guided abdominal paracentesis [[id number]] Collected: 09/14/23 1135 Order Status: Completed Updated: 09/14/23 113 Narrative: Patient Name: CAROLINA HIGHTOWER : 1975 [...] 11:36 AM EST US guided abdominal paracentesis [[id number]] Collected: 09/10/2354 Order Status: Completed Updated: 09/10/23854 Narrative: Patient Name: CAROLINA HIGHTOWER : 1975 Exam Date/Time: 09/10/2023 08:29 Proced (more content not included)...[facility]12-21-2023 History of Present illness Narrative* Latha [...] (S/p paracentesis 09/14 with 1.7L removed) [employer] Admin Strength: Not Performed Nutrition Assessment: 47yo F [...] poor appetite. She reports she is eating "at least half of my meals, but not like Inormally would". At home she reports she normally eats [...] On: Kcal/kg Weight Used for Energy Requirements: [place] Weight for Energy Calculation (kg): 50 kg Total Energy Requirements (kcals/day): 27-32 kcal/kg = 1622-6636 kcal/day Weight Used for Protein Requirements: [place] Weight in Kg Used for Protein Requirements: [...] Ordered Anthropometric Measures: Height: 157.5 cm (5' 2.01") Current Body Weight: 95.2 kg (209 lb 14.4 oz) (09/15 bed) Admission Body Weight: (No weight on admit) Usual Body Weight: 90.7 kg (200 lb) (stated) % Weight Change (Calculated): 5 [place] Body Weight (lbs) (Calculated): 110 lbs [place] Body Weight (Kg) (Calculated): 50 kg % [place] Body Weight (Calculated): 190.8 % BMI (kg/m2) [...] Continue current diet Latha Lester RD Contact: *[phone] * Saima Lim MD - 09/15/2023 8:21 AM EST [...] 5 LIVER PROFILE: No results for input(s): "AST", "ALT", "BILITOT", "ALKPHOS", "PROT" in the last 72 hours. No lab exists for component: "LABALBU" PT/INR: No results for input(s): "PROTIME", "INR" in the last 72 hours. CARDIAC ENZYMES: No results for input(s): "TROPONINI" in the last 72 hours. Procalcitonin: No results found for: "PROCAL" Medications: Scheduled desvenlafaxine, 100 mg, Oral, Daily doxepin, 10 mg, Oral, Nightly gabapentin, 100 mg, Oral, BID influenza, 0.5 mL, IntraMUSCular, Once lactulose, 20 g, Oral, TID Or lactulose (Chronulac) 200 g in sterile water 1,000 mL enema, 1 enema, Rectal, TID hfemzaki-dgzoxiawgy-rjulpqyzj, , Topical, TID pantoprazole (ProtoNix) 40 mg [...] (98.3 F) (Temporal) Resp 18 Ht 5' 2.01" (1.575 m) SpO2 98% Pulse Ox: SpO2 [...] Saima Lim MD Division of Hospitalist Medicine [facility] * Saima Lim MD - 09/14/2023 9:58 AM EST Images from the original note were not included. Hospitalist Progress Note 09/14/2023 Subjective: Admit Date: 09/09/2023 PCP: No primary care provider on file. Room#: W5-030/W3-684 A Brief Hospital course: Patient is 47-year-old [...] PROT 6.1* PT/INR: No results for input(s): "PROTIME", "INR" in the last 72 hours. CARDIAC ENZYMES: No results for input(s): "TROPONINI" in the last 72 hours. Procalcitonin: No results found for: "PROCAL" Medications: Scheduled desvenlafaxine, 100 mg, Oral, Daily doxepin, 10 mg, Oral, Nightly gabapentin, 100 mg, Oral, BID influenza, 0.5 mL, IntraMUSCular, Once lactulose, 20 g, Oral, TID Or lactulose (Chronulac) 200 g in sterile water 1,000 mL enema, 1 enema, Rectal, TID rtfuhoxb-vdpbauuwvo-lxlzftlrs, , Topical, TID pantoprazole (ProtoNix) 40 mg [...] (98.3 F) (Temporal) Resp 18 Ht 5' 2.01" (1.575 m) SpO2 98% Pulse Ox: SpO2 [...] Emergency Contact Information Primary Emergency Contact: KatjaJohn Relation: Spouse Secondary Emergency Contact: KatjaVannesa Mobile Relation: Daughter Gorgeramóndavidambreen Pedersen MD [facility] Division of Hospitalist Medicine [employer] * Saima Lim MD - 09/13/2023 9:01 [...] 1.7* CARDIAC ENZYMES: No results for input(s): "TROPONINI" in the last 72 hours. Procalcitonin: No results found for: "PROCAL" Medications: Scheduled desvenlafaxine, 100 mg, Oral, Daily [...] (98.3 F) (Temporal) Resp 18 Ht 5' 2.01" (1.575 m) SpO2 98% Pulse Ox: SpO2 [...] Saima Lim MD Division of Hospitalist Medicine [facility] * Kate Harley MD - [...] Surgery PGY-1 09/12/23 4:53 PM Pager # [phone] This note may have been dictated using [employer] Medical Practice Edition 2.6 and/or ipadio Voice Recognition Feature. The document was proofread; however, unrecognized voice recognition director of food and nutrition services errors may be present. Associated attestation - [...] of Trauma Department of Surgery [facility] ~~~~~~~~~~~~~~~~~~~~~~~~~~~~~~~~~~~~~~~~~~~~~~~~~~~~~~~~~~~~~ This note may have been dictated using [employer] Medical Practice Edition 2.6 and/or ipadio Voice Recognition Feature. The document was proofread; however, unrecognized voice recognition director of food and nutrition services errors may be present. * Kaylin Camarillo, [facility] - 09/12/2023 4:15 PM EST [facility] ADMISSION MEDICATION RECONCILIATION Date: 09/12/23 [facility] Patient Name: Carolina Hightower Allergies: Aspirin, [...] on last fill dates from patient's [facility]. Home medications to restart if there [...] PM 09/12/2023 4:18 PM Kaylin Camarillo, PharmD * Latha Lester RD - 09/12/2023 9:48 [...] muscle mass loss Fluid Accumulation: Mild Ascites Finance Admin Strength: Not Performed Nutrition Assessment: 47yo F [...] On: Kcal/kg Weight Used for Energy Requirements: [place] Weight for Energy Calculation (kg): 50 kg Total Energy Requirements (kcals/day): 27-32 kcal/kg = 5486-5669 kcal/day Weight Used for Protein Requirements: [place] Weight in Kg Used for Protein Requirements: [...] Ordered Anthropometric Measures: Height: 157.5 cm (5' 2.01") Current Body Weight: 93.3 kg (205 lb 9.6 oz) (09/12 bed) Admission Body Weight: (No weight on admission) Usual Body Weight: 90.7 kg (200 lb) (200# stated. Very limited per chart: 12/02/22 208#, 09/29/22 209#,05/26/22 198#) % Weight Change (Calculated): 2.8 [place] Body Weight (lbs) (Calculated): 110 lbs [place] Body Weight (Kg) (Calculated): 50 kg % [place] Body Weight (Calculated): 186.9 % BMI (kg/m2) [...] soon to determine Latha Lester RD Contact: *[phone] * Saima Lim MD - 09/12/2023 9:04 AM EST Images from the original note were not included. Hospitalist Progress Note 09/12/2023 Subjective: Admit Date: 09/09/2023 PCP: No primary care provider on file. Room#: W7-726/W7724 A Brief Hospital course: Patient is 47-year-old [...] <0.012 <0.012 Procalcitonin: No results found for: "PROCAL" Medications: Scheduled desvenlafaxine, 100 mg, Oral, Daily [...] (98.3 F) (Temporal) Resp 18 Ht 5' 2.01" (1.575 m) SpO2 98% Pulse Ox: SpO2 [...] Saima Lim MD Division of Hospitalist Medicine [facility] * Judah Valentine MD - 09/11/2023 1:44 PM EST Images from the original note were not included. Hospitalist Progress Note 09/11/2023 Subjective: Admit Date: 09/09/2023 PCP: No primary care provider on file. Room#: W7-726/W7726 A Interval History: Patient is 47-year-old with history of cirrhosis, GERD, substance [facility] of [facility]. Patient [...] 17.0* INR 1.7* CARDIAC ENZYMES: Recent Labs 09/09/238 09/09/23 2205 09/10/23 0105 TROPONINI <0.012 <0.012 <0.012 Procalcitonin: No results found for: "PROCAL" Medications: Scheduled desvenlafaxine, 100 mg, Oral, Daily [...] of Hospitalist Medicine [facility] * Marielos Stewart - 09/11/2023 [...] follow closely. documented in this [facility]12-21-2023 Hospital course Narrative* Saima Lim MD [...] (98.3 F) (Temporal) Resp 18 Ht 5' 2.01" (1.575 m) SpO2 98% Pulse Ox: SpO2 [...] SIGNIFICANT DIAGNOSTIC STUDIES: US guided abdominal paracentesis [[id number]] Collected: 09/14/23 113 Order Status: Completed Updated: 09/14/231136 Narrative: Patient Name: CAROLINA HIGHTOWER : 1975 [id number] Exam Date/Time: 09/14/2023 09:36 Procedure: US GUIDED [...] 11:36 AM EST US guided abdominal paracentesis [[id number]] Collected: 09/10/23853 Order Status: Completed Updated: 09/10/23854 [...] AM EST CT abdomen pelvis w contrast [[id number]] Collected: 09/09/232018 Order Status: Completed Updated: 09/09/232028 [...] 8:28 PM EST XR chest 1 view [[id number]] Collected: 09/09/231846 Order Status: Completed Updated: 09/09/231848 [...] Your Medications These medications were sent to [facility] - [place], [place] - [address] [place] [address] desvenlafaxine 100 MG 24 hr tablet doxepin 10 MG capsule traZODone 100 MG tablet DIET: Adult diet Regular ACTIVITY: No restriction. COMPLEXITY OF FOLLOW UP: [] Moderate Complexity: follow up within 7-14 calendar days (46295) [] Severe Complexity: follow up within 7 calendar days (58065) FOLLOW UP TESTING, PENDING RESULTS OR REFERRALS AT TRANSITIONAL CARE VISIT: [] Yes [] No PENDING STUDIES: DISPOSITION: Home FACILITY/HOME CARE AGENCY NAME: Follow up with Cristiana Strauss MD [address] [place] [address] [address] [place] [address] Schedule an appointment as soon as possible [...] Lim MD 09/15/2023, 12:04 PM documented in [facility]12-21-2023 NoteHospitalist Progress Note 09/15/2023 Subjective: Admit [...] 5 LIVER PROFILE: No results for input(s): "AST", "ALT", "BILITOT", "ALKPHOS", "PROT" in the last 72 hours. No lab exists for component: "LABALBU" PT/INR: No results for input(s): "PROTIME", "INR" in the last 72 hours. CARDIAC ENZYMES: No results for input(s): "TROPONINI" in the last 72 hours. Procalcitonin: No results found for: "PROCAL" Medications: Scheduled desvenlafaxine, 100 mg, Oral, Daily doxepin, 10 mg, Oral, Nightly gabapentin, 100 mg, Oral, BID influenza, 0.5 mL, IntraMUSCular, Once lactulose, 20 g, Oral, TID Or lactulose (Chronulac) 200 g in sterile water 1,000 mL enema, 1 enema, Rectal, TID dfietuhv-ycldjbmcwd-vqhrtwthp, , Topical, TID pantoprazole (ProtoNix) 40 mg [...] (98.3 ?F) (Temporal) Resp 18 Ht 5' 2.01" (1.575 m) SpO2 98% Pulse Ox: SpO2 [...] Pedersen MD Raphael Division of Hospitalist Medicine [facility]12-20-2023 Note* Care Coordination - Jimi Jackson RN - 09/14/2023 2:54 PM EST Chart reviewed. Patient had paracentesis today with 1700 ml removed. Surgery is following patient for likely ileus -->no plans for intervention and recommend ADAT. Current discharge plan is home no needs once medically stable. [facility]* Care Coordination - Jimi Jackson RN - 09/14/2023 2:54 PM EST Chart reviewed. Patient had paracentesis today with 1700 ml removed. Surgery is following patient for likely ileus -->no plans for intervention and recommend ADAT. Current discharge plan is home no needs once medically stable. [facility] HospitalHnkasp75-70-7483 NoteHospitalist Progress Note 09/14/2023 Subjective: Admit Date: 09/09/2023 PCP: No primary care provider on file. Room#: [facility]726/[facility]72 A Brief Hospital course: Patient is 47-year-old [...] PROT 6.1* PT/INR: No results for input(s): "PROTIME", "INR" in the last 72 hours. CARDIAC ENZYMES: No results for input(s): "TROPONINI" in the last 72 hours. Procalcitonin: No results found for: "PROCAL" Medications: Scheduled desvenlafaxine, 100 mg, Oral, Daily doxepin, 10 mg, Oral, Nightly gabapentin, 100 mg, Oral, BID influenza, 0.5 mL, IntraMUSCular, Once lactulose, 20 g, Oral, TID Or lactulose (Chronulac) 200 g in sterile water 1,000 mL enema, 1 enema, Rectal, TID snpndmzq-tcumesjdle-efkgwdkdb, , Topical, TID pantoprazole (ProtoNix) 40 mg [...] (98.3 ?F) (Temporal) Resp 18 Ht 5' 2.01" (1.575 m) SpO2 98% Pulse Ox: SpO2 [...] Pedersen MD Raphael Division of Hospitalist Medicine [facility]12-20-2023 Note* Perioperative Nursing Note - Marimar Velasquez RN - 09/14/2023 9:19 AM EST Patient to ultrasound department for paracentesis. History, medications and allergies reviewed. Samuel Pastor PA-C in to speak with patient. Informed consent obtained. 1700 mL clear yellow colored fluid removed. Patient tolerated procedure well. Bandaid applied to site. [facility] to [facility] HospitalHfckuw35-79-9228 Note* Perioperative Nursing Note - Marimar Velasquez RN - 09/14/2023 9:19 AM EST Patient to ultrasound department for paracentesis. History, medications and allergies reviewed. Samuel Pastor PA-C in to speak with patient. Informed consent obtained. 1700 mL clear yellow colored fluid removed. Patient tolerated procedure well. Bandaid applied to site. Patient discharged to [facility] TáximoIouovr15-28-2948 NoteHospitalist Progress Note 09/13/2023 Subjective: Admit Date: [...] 1.7* CARDIAC ENZYMES: No results for input(s): "TROPONINI" in the last 72 hours. Procalcitonin: No results found for: "PROCAL" Medications: Scheduled desvenlafaxine, 100 mg, Oral, Daily [...] (98.3 ?F) (Temporal) Resp 18 Ht 5' 2.01" (1.575 m) SpO2 98% Pulse Ox: SpO2 [...] Emergency Contact: Vannesa Hightower Mobile Relation: Daughter Siama Pedersen MD [facility] Division of Hospitalist Medicine [facility]12-19-2023 NoteCare Management Progress Note Patient [...] of Stay (Days): 4 GMLOS: No [facility]MLOS [facility]* Care Coordination - Meg Herrmann [...] Stay (Days): 4 GMLOS: No GMLOS Documented [facility]12-19-2023 Note* Care Coordination - Meg Herrmann RN [...] Stay (Days): 4 GMLOS: No GMLOS Documented [facility]12-18-2023 NoteHospitalist Progress Note 09/12/2023 Subjective: Admit Date: 09/09/2023 PCP: No primary care provider on file. Room#: W7-596/W7-763 A Brief Hospital course: Patient is 47-year-old [...] <0.012 <0.012 Procalcitonin: No results found for: "PROCAL" Medications: Scheduled desvenlafaxine, 100 mg, Oral, Daily [...] (98.3 ?F) (Temporal) Resp 18 Ht 5' 2.01" (1.575 m) SpO2 98% Pulse Ox: SpO2 [...] Saima Lim MD Division of Hospitalist Medicine [facility]12-18-2023 Note* Care Coordination - Meg Herrmann RN - 09/12/2023 10:19 AM EST Care Managment Initial Assessment Date: 09/12/2023 Patient Name: Carolina Hightower : 1975 Patient Information Source of Information: Patient Cognition/Language: WFL - Within Functional Limits Permission given to speak with patient inside account representative/caregiver as indicated: Yes Confirmation of Payer with patient/family: Yes Payer Name: [facility] Medicaid [place]: No Confirmation of Primary Care Physician: Confirmed [...] pain, nausea and vomiting, hx: polysubstance abuse. [place] diet and Addiction Medicine consulted. Discharge plan home with Significant Other. Meg Herrmann RN [facility] HospitalWtxjei34-48-0544 Note* Care Coordination - Meg Herrmann RN - 09/12/2023 10:19 AM EST Care Managment Initial Assessment Date: 09/12/2023 Patient Name: Carolina Hightower : 1975 Patient Information Source of Information: Patient Cognition/Language: WFL - Within Functional Limits Permission given to speak with patient inside account representative/caregiver as indicated: Yes Confirmation of Payer with patient/family: Yes Payer Name: [facility] Medicaid [place]: No Confirmation of Primary Care Physician: Confirmed [...] pain, nausea and vomiting, hx: polysubstance abuse. [place] diet and Addiction Medicine consulted. Discharge plan home with Significant Other. Meg Herrmann RN [facility]12-17-2023 Note* Care Coordination - Kaylin Rivera RN - 09/11/2023 3:56 PM EST Attempted to complete Initial assessment over the phone. Patient currently unavailable/off unit. Will try again as time allows. TCC will follow. [facility]12-17-2023 Note* Care Coordination - Kaylin Rivera RN - 09/11/2023 3:56 PM EST Attempted to complete Initial assessment over the phone. Patient currently unavailable/off unit. Will try again as time allows. TCC will follow. [facility]12-17-2023 NoteHospitalist Progress Note 09/11/2023 Subjective: Admit Date: [...] <0.012 <0.012 Procalcitonin: No results found for: "PROCAL" Medications: Scheduled desvenlafaxine, 100 mg, Oral, Daily [...] Judah Valentine MD Division of Hospitalist Medicine [facility]12-17-2023 NoteADDICTION MEDICINE CONSULTATION H&P Patient: Carolina Hightower Admit Date: 09/09/2023 Primary Care Physician: No primary care provider on file. Reason for Consultation: "Substance use." __ HISTORY OF PRESENT ILLNESS Chief Complaint [...] 10 years. She does admit to using "everything" at one point in her life or [...] 98% Physical Exam Vi (more content not included)...[facility]12-17-[facility] Hospital Discharge instructions* Discharge Instructions* Jozef Cordova MD - 09/11/2023 11:48 AM EST Images from the original note were not included. [facility] PROGRAMS __ Addiction Medicine Intensive Outpatient Program [place] ([facility]): [phone] [place]: [phone] [place]: [phone] Behavioral Health Intensive Outpatient Program [place] ([facility]): [phone] [place]: [phone] First Step [place] ([facility]): [phone] [place]: [phone] Partial Hospitalization Program [place] ([facility]): [phone] Traumatic Stress Center [place] ([facility]): [phone] Viv[facility] [place] ([facility]): [phone] Alcoholics Anonymous Meetings [email or web address] [facility] [address] [place] [address], [address], [place] [address] * Additional Instructions* Saima Lim MD - 09/15/2023 12:01 PM EST F/U with PCP, GI, Addiction Medicine documented in this [facility]12-17-2023 Consult note* Jozef Cordova MD - 09/11/2023 11:35 AM ESTAssociated Order(s): IP CONSULT TO ADDICTION MEDICINE Images from the original note were not included. ADDICTION MEDICINE CONSULTATION H&P Patient: Carolina Hightower Admit Date: 09/09/2023 Primary Care Physician: No primary care provider on file. Reason for Consultation: "Substance use." __ HISTORY OF PRESENT ILLNESS Chief Complaint [...] 10 years. She does admit to using "everything" at one point in her life or [...] 09/10/2023 Patient Name: CAROLINA HIGHTOWER : 1975 [id number] Exam Date/Time: 09/10/2023 08:29 Procedure: US GUIDED [...] 09/09/2023 Patient Name: CAROLINA HIGHTOWER : 1975 [id number] Exam Date/Time: 09/09/2023 18:44 Procedure: XR CHEST [...] 455 ms QTC Interval 501 ms P [place] 55 degrees QRS [place] -7 degrees T Wave [place] 28 degrees [place] Interval 157 ms CBC auto differential Collection [...] clinical information on the day of visit. [facility]12-17-2023 Consult note* Jzoef Cordova MD - 09/11/2023 11:35 AM [facility] Order(s): IP CONSULT TO ADDICTION MEDICINE Images from the original note were not included. ADDICTION MEDICINE CONSULTATION H&P Patient: Carolina Hightower Admit Date: 09/09/2023 Primary Care Physician: No primary care provider on file. Reason for Consultation: "Substance use." __ HISTORY OF PRESENT ILLNESS Chief Complaint [...] 10 years. She does admit to using "everything" at one point in her life or [...] 09/09/2023 Patient Name: CAROLINA HIGHTOWER : 1975 [id number] Exam Date/Time: 09/09/2023 18:44 Procedure: XR CHEST [...] 455 ms QTC Interval 501 ms P [place] 55 degrees QRS [place] -7 degrees T Wave [place] 28 degrees [place] Interval 157 ms CBC auto differential Collection [...] the day of visit. documented in this [facility]12-17-2023 Nurse Note* Jose Alejandro Nava RN - 09/11/2023 9:14 AM EST Pt was found wandering the hospital by security, confused. Pt brought back by security and she saidshe was going outside to smoke. She was very upset that she could not have a smoke. Pt threatened to punch someone in the face. Pt is confused. [facility] HospitalBdoxql76-27-8223 Nurse Note* Jose Alejandro Nava RN - 09/11/2023 9:14 AM EST Pt was found wandering the hospital by security, confused. Pt brought back by security and she saidshe was going outside to smoke. She was very upset that she could not have a smoke. Pt threatened to punch someone in the face. Pt is confused. documented in this [facility]12-16-2023 NoteAttending History and Physical Admit Date: [...] PROT 7.2 PT/INR: No results for input(s): "PROTIME", "INR" in the last 72 hours. CARDIAC ENZYMES: Recent Labs 09/09/23 1848 09/09/23 2205 09/10/23 0105 TROPONINI <0.012 <0.012 <0.012 Procalcitonin: No results found for: "PROCAL" Urine Culture: No results found for this or any previous visit. COVID-19 PCR: No results for input(s): "COVID19" in the last 72 hours. I revie (more content not included)...[facility]12-16-20[facility] History and physical note* Cindi Salas [...] PROT 7.2 PT/INR: No results for input(s): "PROTIME", "INR" in the last 72 hours. CARDIAC ENZYMES: Recent Labs 09/09/23 1848 09/09/23 2205 09/10/23 0105 TROPONINI <0.012 <0.012 <0.012 Procalcitonin: No results found for: "PROCAL" Urine Culture: No results found for this or any previous visit. COVID-19 PCR: No results for input(s): "COVID19" in the last 72 hours. I reviewed: [...] - Pt follows w/ GI specialist Dr. Foster. States has recently had her medications changed [...] MD Division of Hospitalist Medicine Inpatient Medical Services/[facility] [employer] Work Phone: 1(705) 352-633912-16-2023 History and physical note* Cindi Salas MD [...] PROT 7.2 PT/INR: No results for input(s): "PROTIME", "INR" in the last 72 hours. CARDIAC ENZYMES: Recent Labs 09/09/23 1848 09/09/23 2205 09/10/23 0105 TROPONINI <0.012 <0.012 <0.012 Procalcitonin: No results found for: "PROCAL" Urine Culture: No results found for this or any previous visit. COVID-19 PCR: No results for input(s): "COVID19" in the last 72 hours. I reviewed: [...] - Pt follows w/ GI specialist Dr. Foster. States has recently had her medications changed [...] MD Division of Hospitalist Medicine Inpatient Medical Services/[facility] documented in this [facility]12-16-2023 Emergency department Note* Laura Antony RN - 09/10/2023 5:00 AM EST Report given to 7W at this time. Transport en route. Laura Antony RN 09/10/23 8390 [facility] [id number] Emergency department Note* Laura Antony RN - 09/10/2023 5:00 AM EST Report given to 7W at this time. Transport en route. Laura Antony RN 09/10/23 0501 * [facility] - 09/10/2023 4:47 AM EST They are here now to transport the patient to [facility] 09/10/23 0447 Electronically signed by [facility] at 09/10/2023 4:47 AM EST * [facility] - 09/10/2023 4:32 AM EST [facility] ETA 0430 RN will call report in a few :) [facility] 09/10/23 0432 Electronically signed by [facility] at 09/10/2023 4:32 AM EST * JOSE Collins - 09/09/2023 6:18 PM [...] is bedside and states that the patient "seems off". When this was further questioning patient's family [...] Culture. Procedure Abnormality Status --------- ------ Complete Urinalysis[[id number]] Abnormal Final result Please view results for [...] obstruction. Disposition admission to medical service at [facility]. [facility] unfortunately does not have the capacity to perform paracentesis if deemed necessary. Given this illness provider would like patient be transferred to [facility] for small bowel obstruction management, general surgery consultation. Discussed with Dr. Salas who accepted patient for transfer. Patient will be transferred to [facility]. PROCEDURES: Unless otherwise noted below, none [...] 09/09/2023 6:18 PM EST Emergency Department Encounter [facility] ED Patient: Carolina Hightower : 1975 Date of Evaluation: 09/09/2023 ED Supervising Physician: Lenny Macdonald MD I independently examined and evaluated Carolina Hightower. This will serve as my Supervisory note as the yard brakeman of record and shared attestation. Idid perform [...] withinpatient medicine team they recommend transfer to [facility] as they do not have IRP [...] for clarification.) Lenny Macdonald MD Acute Care [facility] Lenny Macdonald MD 09/12/23 1500 * Vanessa Hughes RN - 09/09/2023 6:18 PM EST Pt c/o abdominal pain that began this afternoon, states that she has hx of cirrhosis. Family statesshe seems off. documented in this [facility]12-16-2023 Emergency department Note* [facility] - 09/10/2023 4:47 AM EST They are here now to transport the patient to [facility] 09/10/23 0447 [facility] HospitalVkoqij57-92-3074 Emergency department Note* [facility] - 09/10/2023 4:32 AM EST [facility] ETA 0430 RN will call report in a few :) [facility] 09/10/23 0432 [address]n47-71-7679 Emergency department Triage note* Vanessa Hughes RN - 09/09/2023 6:18 PM EST Pt c/o abdominal pain that began this afternoon, states that she has hx of cirrhosis. Family statesshe seems off. [address]Ouakyx91-78-2439 Physician Emergency department Note* JOSE Collins - [...] is bedside and states that the patient "seems off". When this was further questioning patient's family [...] Culture. Procedure Abnormality Status --------- ------ Complete Urinalysis[[id number]] Abnormal Final result Please view results for [...] obstruction. Disposition admission to medical service at [facility]. [facility] unfortunately does not have the capacity to perform paracentesis if deemed necessary. Given this illness provider would like patient be transferred to [facility] for small bowel obstruction management, general surgery consultation. Discussed with Dr. Salas who accepted patient for transfer. Patient will be transferred to [facility]. PROCEDURES: Unless otherwise noted below, none [...] contact the dictating provider for clarification.) JOSE Collisn (electronically signed) Emergency Medicine Provider JOSE Collins 09/09/232117 [facility] HospitalVxtccm77-81-4375 Physician Emergency department Note* Lenny Macdonald MD - 09/09/2023 6:18 PM EST Emergency Department Encounter [facility] ED Patient: Carolina Hightower : 1975 Date of Evaluation: 09/09/2023 ED Supervising Physician: Lenny Macdonald MD I independently examined and evaluated Carolina Hightower. This will serve as my Supervisory note as the yard brakeman of record and shared attestation. Idid perform [...] withinpatient medicine team they recommend transfer to [facility] as they do not have IRP abilities over the weekend for paracentesis if required. Recommending bowel rest will be admitted Diagnoses as of 09/12/23 1454 Small bowel obstruction (HCC) Diagnostic tests considered [...] provider for clarification.) Lenny Macdonald MD Acute [facility] Lenny Macdonald MD 09/12/23 1500 [facility] [employer] Phone: [phone]) 756-768911-27-2023 Discharge summary Author Darius Rosales [facility] August 22, 2023 2:55pm Note Date/Time August 22, 2023 7:59am [facility] Medical Records Department [address] [place] [address] Emergency Department Summary 08/22/23 MR#: [id number] Acct: [id number] Name: CAROLINA HIGHTOWER Rep #:[id number] : 1975 47 From: Darius Rosales DO PCP: Dr. Dacia Acosta MD Status:RE ER Location: ED HPI HPI - Psych History of Present Illness Chief Complaint: Mental Health Narrative Narrative: 47-year-old female presenting with depression. Patient was brought in by [place] [employer]. Patient states that she stated she wanted to kill herself and kill all the people in [place]. She states that she only said this [...] this time. Patient was seen by the manager social media and plan is currently to place her. [...] % (Auto) 54.4 Lymph % (Auto) 29.4 Dickenson % (Auto) 11.0 H Eos % (Auto) [...] your Primary Care Provider. Call [facility] ([phone]) or report to the closest Emergency Room. Call 911 if necessary. 08/22/23 9717 <Electronically signed by Darius Rosales DO> Cosigner Signature (if applicable): CC: Dr. Dacia Acosta MD ~ Signed [facility] Work Phone: 1(123) 591-357211-20-2023 Procedure [facility] 07-21-2023 Progress note Author Michi Forbes [facility] July 21, 2023 1:03pm Note Date/Time July 21, 2023 7 :35am [facility] Medical Records Department [address] [place] [address] Progress Note - Hospitalist 07/21/23732 MR#: [id number] Acct: [id number] Name: CAROLINA HIGHTOWER Rep #:[id number] : 1975 47 From: Michi Forbes DO PCP: Dr. Dacia Acosta MD Status:AD M [facility] Location: [facility] HX372-1 Subjective Subjective Feeling well. Has had chronic [...] % (Auto) 55.7, Lymph % (Auto) 30.0, Dickenson % (Auto) 9.1, Eos % (Auto) 4.2, [...] % (Auto) 52.2, Lymph % (Auto) 31.8, Dickenson % (Auto) 10.6 H, Eos % (Auto) [...] Cosigner Signature (if applicable): CC: ~ Signed [facility] Work Phone: 1([phone] 716-181810-26-2023 History and physical note Author Gurinder Mittal [facility] July 21, 2023 8:51am Note Date/Time July 20, 2023 8 :56pm [facility] Medical Records Department [address] [place] [address] H&P Exam - Hospitalist 07/20/232055 MR#: [id number] Acct: [id number] Name: CAROLINA HIGHTOWER Rep #:[id number] : 1975 47 From: Gurinder Mittal MD PCP: Dr. Dacia Acosta MD Status:AD M [facility] Location: [facility] AH507-0 HPI - General General Date of Admission: [...] ascites. Emergency department doctor discussed with Dr. Friend, area coordinator who recommended the patient stays at hospital [...] % (Auto) 55.7, Lymph % (Auto) 30.0, Dickenson % (Auto) 9.1, Eos % (Auto) 4.2, [...] 45 minutes. Charges/Coding Visit Charges Inpatient E&M: 12862 Init Hosp L2 07/21/23 0851 <Electronically signed by Gurinder Mittal MD> Cosigner Signature (if applicable): CC: Dr. Gurinder Mittal MD; Dr. Dacia Acosta MD~ Signed [facility] Work Phone: [phone] 445-395610-26-2023 Procedure [facility] 07-20-2023 Discharge summary Author Darius Rosales [facility] July 20, 2023 9:43pm Note Date/Time July 20, 2023 9 :43pm [facility] Medical Records Department [address] [place] [address] Emergency Department Summary 07/20/23 MR#: [id number] Acct: [id number] Name: CAROLINA HIGHTOWER Rep #:[id number] : [...] ofcirrhosis and hep C. She sees Dr. Foster on an outpatient basis but apparently missed [...] ascending colon. Discussed the case with Dr. Foster who recommended Rocephin and admission. He will [...] % (Auto) 55.7 Lymph % (Auto) 30.0 Dickenson % (Auto) 9.1 Eos % (Auto) 4.2 [...] Plan Triage Chief Complaint: Laceration ED Provider: Darius Rosales Dx/Rx/DC Orders Prescriptions: [...] problems, contact your Primary Care Provider. Call [facility] [employer] [facility] ([phone]) or report to the closest Emergency Room. Call 911 if necessary. 07/20/232142 <Electronically signed by Darius Rosales DO> Cosigner Signature (if applicable): CC: Dr. Dacia Acosta MD ~ Signed [facility] Work Phone: [phone]) 948-435507-31-2023 Hospital Discharge instructions Additional Instructions 1. Apply ice to bruised area 6-10 times a day for the next 3 days. 2. You may take either ibuprofen or Aleve for your pain.[facility] Work Phone: 1(634) 190-310906-29-2023 Miscellaneous Notes* Telephone Encounter - Lyssa Suárez [...] Melisa Vick Ma * Telephone Encounter - Radha Blair - 03/22/2023 5:01 PM EDT Patient [...] for 180 days. Please review and advise. Radha Blair documented in this encounterUniversity Hospitals Conneaut Medical Center05-04-2023 Miscellaneous Notes* Telephone Encounter - Melisa Vick Ma - 01/27/2023 1:50 PM EDT Pt notified. Melisa Vick Ma * Telephone Encounter - Dacia Acosta MD - 01/27/2023 1:40 PM EDT OK for doxycycline and bactroban as ordered Dacia cAosta MD * Telephone Encounter - Ledy Orantes Ma - 01/27/2023 11:16 AM EDT See message from pt and advise. Ledy Orantes Ma * Telephone Encounter - Poornima [facility] - 01/27/2023 10:46 AM EDT Carolina Hightower is calling Dacia Acosta MD today to request a refill on the antibiotic prescribed for patient open wound on her chin. Also asking for the cream to apply to same wound. Patient is not sure of either of these medication names. Please send RX to [facility] in [place] and advise patient when these have been ordered by provider per patient request. Patient has been identified by name and birthdate. Duration of symptoms: months Person calling: self Call patient at: at home [phone] (home) [phone] (cell) Was an appointment scheduled: No Closing statement: Results or non-symptom based questions: Thank you for calling [facility], your call will be returned within the next business day. Poornima Kim documented in this encounterUniversity Hospitals Conneaut Medical Center05-02-2023 Miscellaneous Notes* Letter - Mammography Coordinator - 01/25/2023 9:22 AM EDT January 26, 2023 PID: [id number] Carolina Hightower [address] [address] Dear Jackie Hightower, Your recent breast imaging exam on [...] who ordered/prescribed your screening mammogram: Please call [phone] or EXT: [phone] to schedule an appointment for your additional [...] and reports are kept on file at [facility] as part of your permanent medical record, and are available for your continuing care. Thank you for allowing us to help in meeting your health care needs. Sincerely, Dr. Estrada Interpreting Radiologist [facility] (Additional imaging) documented in this encounterUniversity Hospitals Conneaut Medical Center03-09-2023 History of Present illness Narrative* JOSE Vega - 12/02/2022 12:58 PM EST Images from the original note were not included. This note was created using [employer] Pharm[employer]riter. Subjective Carolina Hightower is a 47 year [...] PAST SURGICAL HISTORY OF 2018 liver bx [facility] ALLERGIES Aspirin, Bupropion, Codeine, Prednisone, and Wellbutrin [...] ER evaluation. JOSE Vega documented in this encounterUniversity Hospitals Conneaut Medical Center01-07-2023 Miscellaneous Notes* Telephone Encounter - Kayleen Rapp MA - 10/02/2022 10:30 AM EST Left message of results on secure voicemail. Kayleen Rapp MA * Telephone Encounter - Kaylin Freed APRN.CNP - 10/02/2022 10:19 AM EST Please call patient and inform that her wound culture is negative. She can quit taking the ATB. She needs to follow up as directed. documented in this encounterUniversity Hospitals Conneaut Medical Center01-04-2023 History of Present illness Narrative* Lynn Prabhakar [...] ROUTINE Lynn Prabhakar MD documented in this encounterUniversity Hospitals Conneaut Medical Center12-21-2022 History of Present illness Narrative* Jean Carlos [...] Outreach HCC or suspected condition Payer: Payor: [facility] MEDICAID / Plan: [facility] MEDICAID / Product Type: Medicaid / Care [...] 15, 2022 1:09 PM documented in this encounterUniversity Hospitals Conneaut Medical Center09-28-2022 Miscellaneous Notes* Telephone Encounter - Dacia Acosta MD - 06/23/2022 1:58 PM EDT Her dose was changed to 100 mg bid, and a prescription was sent for this at her last appt. Dacia Acosta MD * Telephone Encounter - Shannon Dawson MA - 06/23/2022 8:52 AM EDT This request is from [facility]. Our prescription is 100 mg taken twice [...] scheduled. 10/2022 was cancelled. documented in this encounterUniversity Hospitals Conneaut Medical Center08-29-2022 History of Present illness Narrative* Melisa Nicanor Espinal - 05/24/2022 5:13 PM EDT TRANSITION CARE MANAGEMENT (TCM) INITIAL CONTACT [employer] Outreach Provider Action/FYI: 7 day TCM Pt is to call and schedule Gastro appt with Dr. Foster for acute hepatic encephalopathy. Trazodone decreased from [...] might be hidden SUMMARY: -Pt discharged from [facility] on 05/21/22. -Admitted for: Acute Hepatic Encephalopathy Below copied from [facility] Meditech: History of Present Illness Chief [...] in the past. She is at a [facility]. She is not on lactulose or [...] This patient was seen in conjunction with CENTRIFUGAL CASTING MACHINE OPERATOR, Kaylin. I have independently interviewed [...] for provider to review documented in this encounterUniversity Hospitals Conneaut Medical Center08-29-2022 Miscellaneous Notes* Telephone Encounter - Melisa Vick [...] and advise. * Telephone Encounter - Aranza Diaz Pss - 05/24/2022 12:46 PM EDT Patient Carolina called, sounded very confused was at [facility], thinks got D/C 05/21 for a fall, swelling on the brain. Please advise, . * Telephone Encounter - Leyd Orantes Ma - 05/24/2022 9:39 AM EDT Records located in scanning on PCP desk. Ledy Orantes Ma * Telephone Encounter - Roma Matt - 05/24/2022 9:27 AM EDT Carolina Hightower is calling Dacia Acosta MD today Patient was at [facility] this weekend from fall; injury to her head. Patient is confused with information the hospital told her at discharge. Asking the doctor review her records and return call to discuss findings. Patient can be reached at [phone] documented in this encounterUniversity Hospitals Conneaut Medical Center08-20-2022 Miscellaneous Notes* Telephone Encounter - Diya Feliciano RN - 05/15/2022 2:47 PM EDT Reason for Call: chin abscess w/ severe pain, new severe headache Outcome: Pt advised to see a physician within 4 hrs. She understands the recommendation and prefersto go to the [place] ED. See note below. Reason for Disposition [...] she had been picked at it , "(possibly about 1 year ago" when it was a pimple 6. PAIN: [...] understands the recommendation and prefers to go tothe [place] ED. Pt states she can not get to [place] express care by 3:30pm. Pt refuses offer to speak with virtualist and prefers to have someone take her to the [place] ED. documented in this encounterUniversity Hospitals Conneaut Medical Center08-15-2022 History of Present illness Narrative* Dacia Acosta MD - 05/10/2022 3:40 PM EDT Chief Complaint Patient presents with: Follow Up HPI aCrolina Hightower is a 46 year old female who presents here today for a wound check. Pt scheduled today for a follow up on a wound check. Pt seen in [facility] on 05[facility]09[facility]22 for evaluation of pain and [...] pharmacy closing yesterday. Also has yet to orange picker today. Pain a 9/10 and described [...] PAST SURGICAL HISTORY OF 2018 liver bx [facility] Family History FAMILY HISTORY Problem Relation Age [...] as instructed every 4 hours as needed. Yoddhrqicyttpmq-Zdbkyckew-TS (BROMFED DM) 2-30-10 mg/5 mL syrup Take [...] 1. 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 No diplomatic interpreter was used. Rash Review of Systems [...] PAST SURGICAL HISTORY OF 2018 liver bx [facility] ALLERGIES Aspirin, Bupropion, Codeine, Prednisone, and Wellbutrin [...] (Patient not taking: Reported on 03/11/2022 ) Nxyosuifkrchwxt-Bghnwbeyt-MZ (BROMFED DM) 2-30-10 mg/5 mL syrup^Take 5-10 [...] worsens. Blanca Dawson APRN.DEEPIKA documented in this encounterUniversity Hospitals Conneaut Medical Center08-12-2022 Miscellaneous Notes* Telephone Encounter - Dyan Llamas RN - 05/07/2022 3:01 PM EDT Called and spoke to patient. Told patient that unfortunately, Hugo cannot provide her with any treatment recommendations without first assessing her. Recommended patient contact PCP in mean time. Patient expressed understanding. * Telephone Encounter - Perla Webb - 05/07/2022 2:35 PM EDT Patient calling requesting to talk with Lenchosandee Carter about up coming appointment on 05/25/22. Patient states she has sores on her face that itch very bad and then patient rips the scabs off and they bleed. Patient says it swells, itches and is very painful. Patient requesting some advise to get her to the appointment. Please advise. Patient can be reached at [phone]. Patient doesn't use mychart very well. documented in this encounterUniversity Hospitals Conneaut Medical Center06-16-2022 History of Present illness Narrative* Tresa Sandoval APRN.DEEPIKA - 03/11/2022 3:00 PM EDT This is [...] PAST SURGICAL HISTORY OF 2018 liver bx [facility] ALLERGIES Aspirin, Bupropion, Codeine, Prednisone, and Wellbutrin [...] as instructed every 4 hours as needed. Wqsowkvzqaxciix-Smffzxkga-TG (BROMFED DM) 2-30-10 mg/5 mL syrup Take [...] discussed and patient voices understanding. Tresa Sandoval APRN.CNP This note was partially generated using [email or web address] voice recognition system. Note was reviewed for accuracy. There may be minor misspellings or grammar miscues with [email or web address] voice recognition. documented in this encounterUniversity Hospitals Conneaut Medical Center06-16-2022 Instructions* Patient Instructions* Tresa Sandoval APRN.CNP - 03/11/2022 2:41 PM EDT 1.) Start keflex for skin infection 2.) Try not to touch face to prevent more bacterial growth. 3.) Recommend a gentle cleanser such as Cetaphil face wash. 4.) Schedule appointment with dermatology: Local would be [facility] or [facility]. 5.) Follow up as needed. documented in this encounterUniversity Hospitals Conneaut Medical Center06-16-2022 Miscellaneous Notes* Telephone Encounter - Ledy Orantes Ma - 03/11/2022 11:50 AM EDT Pt has an appt today with Tresa Sandoval CNP this can be filled at that time. Hasn't been seen since 08/21/21. Ledy Orantes Ma * Telephone Encounter - Kemal Amato - 03/11/2022 11:13 AM EDT Please send gabapentin to [facility] in [place]. Thank you. documented in this encounterUniversity Hospitals Conneaut Medical Center04-19-2022 Miscellaneous Notes* Telephone Encounter - Jen Neely LPN - 01/12/2022 8:37 AM EDT Left message for patient with results and recommendations.Jen Neely LPN * Telephone Encounter - Blanca Dawson APRN.CNP - 01/12/2022 7:24 AM EDT Negative for flu B, covid and positive for flu A. Please notify thank you documented in this encounterUniversity Hospitals Conneaut Medical Center04-18-2022 Instructions* Patient Instructions* Becca Singer APRN.CNP - [...] breath, inability to swallow. documented in this encounterUniversity Hospitals Conneaut Medical Center04-18-2022 History of Present illness Narrative* Becca Singer [...] have confirmed and edited as necessary, the [facility] Review of Systems Constitutional: Negative [...] in 24-48 hours with results, available on mychart - COVID WITH FLUA+B, ROUTINE Advised needs follow up with PCP Diagnosis and treatment plan were discussed and questions were answered to the patient's satisfaction. Pt acknowledged understanding of concepts and follow up plan. Specific signs and symptoms that would indicate the need for higher level of care were discussed indetail warranting prompt ER evaluation. Becca Singer APRN.TRAVELING PASSENGER AGENT documented in this encounterKettering Health Preble note Author Cindi Newman [facility] Note Date/Time March 15, 2025 1:25 pm [facility] Medical Records Department [address] [place] [address] Anesthesia Postop Eval I 03/15/25 1324 MR#: [id number] Acct: [id number] Name: CAROLINA HIGHTOWER Rep #:[id number] : 1975 49 From: Cindi Newman PCP: Eyad Saeed [facility] CENTRIFUGAL CASTING MACHINE OPERATOR-C Status:REG SDC Y Race: C Location: [place] [address] Anesthesia: Postop Eval I Current Vital Signs Temperature: 97.4 F Pulse Rate: 68 Blood Pressure: 99/56 Respiratory Rate: 16 Pulse Ox: 95 Oxygen Delivery Method: Room Air Assessment Airway patent: Yes Spontaneous unlabored respirations: Yes Mental status: Asleep nausea: No Vomiting: No Anesthesia Complication: No Fluid Hydration Crystalloid volume administer (ml): 200 Total IV fluid infused: 200 Progress Note Anesthesia document: Postop Eval 1 completed: Yes 03/15/25 1325 <Electronically signed by Cindi Newman > Date _ Cindi Cordero Signature: Date CC: ~ Signed [facility] Work Phone: Discharge summary Author Michi Forbes [facility] July 21, 2023 1:14pm Note Date/Time July 21, 2023 1 :11pm [facility] Medical Records Department [address] [place] [address] [place] [address] Discharge Summary 07/21/23 1304 MR#: [id number] Acct: [id number] Name: CAROLINA HIGHTOWER Rep #:[id number] : 1975 47 From: Michi Forbes DO PCP: Dr. Dacia Acosta MD Status:[facility] Location: [address] Providers Date of Admission: 07/20/23 Primary Care Physician: Dr. Dacia Acosta MD Consultations 07/21/23 02:49 Consult: Gastroenterology Routine Consulting Provider: Marcelina Foster Reason for Consult: Ascites; colitis EMERGENT Consult: [...] - Other disorders of bilirubin metabolism Plan: / cirrhosis monitor Plan Chronic conditions: * depression: [...] % (Auto) 55.7, Lymph % (Auto) 30.0, Dickenson % (Auto) 9.1, Eos % (Auto) 4.2, [...] % (Auto) 52.2, Lymph % (Auto) 31.8, Dickenson % (Auto) 10.6 H, Eos % (Auto) [...] Care Provider: Dacia Acosta Consulting Providers: Marcelina Foster; Gurinder Mittal Instructions Patient Instructions: JIM RN Paracentesis Dc Additional Instructions / Restrictions: You [...] work as well as follow-up with Dr. Foster for routine monitoring of your cirrhosis. If [...] Self Care Charges/Coding Visit Charges Inpatient E&M: 23126 Disch Hosp >30min 07/21/23 1314 <Electronically signed by Michi Forbes DO> Cosigner Signature (if applicable): CC: Dr. Michi Forbes DO; Dr. Dacia Acosta MD~ Signed [facility] Work Phone: Discharge summary Author Chris Ramos [facility] Note Date/Time February 08, 2025 12:[address] [facility] Medical Records Department [address] [place] [address] Emergency Department Summary 02/08/25 MR#: [id number] Acct: [id number] Name: CAROLINA HIGHTOWER Rep #:[id number] : 1975 49 From: Chris Ramos MD PCP: CONCHIS Victoria Status:REG E R Location: ED HPI History [...] as well as her PCP at the [facility], she has had a referral put in [...] here to the ER according to her. [facility] Medical History Decompensated cirrhosis Abdominal ascites Redness [...] that appointment yet. She had been at [facility] and was transferred to [place] because they thought that she only had [...] this time. I also did check an [facility] report, she has rare prescriptions for antibiotics and none of them have been recent. History & Record Review Additional record(s) reviewed:: Prior ED visit Management Discussion w/another healthcare provider: nursing home social worker/Case management Discharge Plan Triage Chief Complaint: Abd Pain ED Provider: Chris Ramos Dx/Rx/DC Orders Clinical Impression: Cirrhosis of liver, [...] Primary Care Provider: Tresa Sandoval Referrals: Tresa Sandoval CENTRIFUGAL CASTING MACHINE OPERATORAdrian [Primary Care Provider] - (If you have further issues before seeing palliative care or pain management) Print Language: Czech Disposition Disposition: Home, Self Care What to do if you have Problems For any increased pain, shortness of breath, bleeding, nausea or vomiting, chestpain, or any unexpected problems, contact your Primary Care Provider. Call [facility] ([phone]) or report to the closest Emergency Room. Call 911 if necessary. 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 Patient states for the past 30 days she has been in [facility]. States that their beds are not comfortable or padded. States she was discharged from [facility] yesterday. She denies any trauma tothe back or fight. She states that the pain did cause her to fall yesterday butstates that she fell forward and did not hit her back. Did not hit her head. No LOC. Pain periodically radiates into her bilateral buttocks. She states that she has difficulty ambulating due to the pain. Daughter in the room states that the patient has history of a lumbar herniated disc that intermittently flares. She has chronic nerve pain in which she takes gabapentin. Patient denies any fever, chills, shortness of breath, chest pain, dysuria. Denies numbness, urinary retention, stool or urinary incontinence, saddle anesthesia, recent invasive manipulation of the spine, recent intravenous drug use. Patientstates that she feels that she did not get good care in [facility]. Review of systems: See HPI Medications: As listed on the chart Allergies: As listed on the chart PFSH: Per chart Vital signs: As listed on the chart. Reviewed. Physical exam: Gen: A&O x3, NAD Head: Normocephalic, atraumatic Eyes: No sclera icterus, conjunctiva clear ENT: Moist mucous membranes Neck: Trachea midline, full range of motion, nontender CV: RRR, no murmurs, no peripheral edema Resp: Lungs CTA BL, no w/r/c GI: Abd soft, nondistended, nontender : No CVA tenderness Musc: Ambulated to the bathroom without difficulty, moves all extremities but endorses back pain with movement of the bilateral lower extremities-states it pulls on her lower back, no deformity, strength +5/5 in all extremities, no midline spinal tenderness, no bony step-offs, mild tenderness to palpation of the bilateral paraspinal musculature of the lower lumbar spine, no signs of trauma or infection, no saddle paresthesias, sensation intact Skin: Warm, dry Neuro: Alert, oriented, grossly intact Psych: Cooperative, appropriate mood and affect [facility] Medical History (Updated 07/11/25 @ 12:[address] Brock Ruiz DO) Thrombocytopenia Dietary restriction History of pain when walking Decompensated cirrhosis Redness of skin Blackout Abdominal ascites Urolithiasis Hydronephrosis with renal calculous obstruction Hydroureteronephrosis Bipolar disorder Anxiety Depression Ascites of liver Complete edentulism, class III Alcohol abuse Chronic pain GERD (gastroesophageal reflux disease) Restless legs Iron deficiency anemia Hyperbilirubinemia Substance abuse Marijuana use MRSA infection Low iron Anemia Hepatitis Migraine headache Seizures History of diverticulitis COPD (chronic obstructive pulmonary disease) Smoker Obesity Polysubstance abuse Cirrhosis of liver Anxiety and depression Hepatitis C, chronic Home Medications ?Medication ?Instructions ?Recorded ?Last Taken ?Type trazodone 50 mg tablet 100 mg PO QHS PRN sleep 12/2707/10/25 History furosemide 40 mg tablet (Lasix) 40 mg PO DAILY DIURETI C #30 tabs 02/05/25 07/10/25 Rx lactulose 10 gram/15 mL oral 10 g (15 mL) PO TID PRN s tomach 02/05/25 07/10/25 Rx solution upset #3,000 mL pantoprazole 40 mg tablet,delayed 40 mg PO DAILY gerd 03/13/25 07/10/25 History release rifaximin 550 mg tablet (Xifaxan) 550 mg PO BID diarrh ea 30 days #60 05/20/25 07/10/25 Rx tabs ursodiol 500 mg tablet 500 mg PO TID 1 month #90 ta bs 05/21/25 07/10/25 Rx aripiprazole 5 mg tablet 5 mg PO DAILY 07/11/2507/10 History buspirone 7.5 mg tablet 7.5 mg PO TID anxiety 07/10/25 History cholecalciferol (vitamin D3) 50 50 mcg PO DAILY supple ment 07/11/25 07/10/25 History mcg (2,000 unit) capsule desvenlafaxine succinate 25 mg 25 mg PO DAILY depressi on 07/11/25 07/10/25 History tablet,extended release 24 hr desvenlafaxine succinate 50 mg 50 mg PO DAILY depressi on 07/11/25 07/10/25 History tablet,extended release 24 hr gabapentin 300 mg capsule 300 mg PO TID nerve pain 07/10/25 History lidocaine 5 % topical patch 1 patch topical DAILY PRN pain 3 07/11/25 Unknown Rx (Lidoderm) days #3 ea ramelteon 8 mg tablet 8 mg PO QHS sleep 07/11/25 1 History spironolactone 100 mg tablet 100 mg PO DAILY heart 07/10/25 History topiramate 50 mg tablet 50 mg PO DAILY seizures 06/2607/10/25 History Allergy/AdvReac Type Severity Reaction Status Date / Time bupropion HCl (From Allergy SEIZURES Verified 07/11/25 08:38 Wellbutrin) codeine Allergy Rash Verified 07/11/25 08:38 Family History Mother Diabetes Father Cancer HX [...] Yes EXAM Physical Exam Const Vital Signs: 07/11/25 08:38 07/11/25 12:23 Temperature 97.4 F L 97.9 F Temperature Source Temporal Pulse Rate 84 81 Respiratory Rate 16 16 Blood Pressure 121/79 H 124/77 H Blood Pressure Mean 93 92 Pulse Ox 97 99 MDM MDM MDM Narrative Medical decision making narrative: 49-year-old female with past medical history of polysubstance abuse, hepatitis Cwith cirrhosis, history of lumbar herniated disc presents for evaluation of lumbar back pain. Patient states for the past 30 days she has been in [facility]. States that their beds are not comfortable or padded. States she was [facility] yesterday. She denies any trauma to the back. Daughter in the room states that the patient has history of a lumbar herniated disc that intermittently flares. She has chronic nerve pain in which she takes gabapentin. Patient denies any fever, chills, shortness of breath, chest pain, dysuria, numbness, urinary retention, stool or urinary incontinence, recent invasive manipulation of the spine, recent intravenous drug use. Differential diagnosis includes but is not limited to myofascial spasm, back strain, chronic herniated disc. There is nothing to suggest any infectious etiology. There is nothing to suggest any acute cauda equina syndrome. At this point in time I do not feel any emergent MRI or CT is warranted. Patient's symptoms will be treated with Toradol, muscle relaxer, lidocaine patch. Will obtain x-ray of thelumbar spine to rule out any occult fracture although low suspicion. Patient states she did not feel that she got good care at [facility] and requesting basic labsto be performed. This was ordered with a urine. CBC without leukocytosis. Patient has baseline anemia of 10.7. She has thrombocytopenia of 39. On her chart review she has a history of thrombocytopenia in the past. No current bleeding. CMP shows baseline hyperbilirubinemia and transaminitis from her hepatitis C cirrhosis. UA is negative for UTI. Urine drug screen positive for oxycodone. X-ray of the lumbar spine shows straightening of the lumbar curvaturewhich can indicate spasm. There is loss of disc height which is most severe at L5-S1. On reevaluation, patient's pain has improved. She is ambulated multipletimes in the emergency department without difficulty. She states her pain is controlled and is ready to discharge home. However given her significant thrombocytopenia, I did contact Dr. Foster who she follows with her cirrhosis. No need for emergent intervention at this time per his recommendations. He was aware that the patient did receive Toradol. Plan is to provide an order to haveher labs repeated in 3 days. Follow-up in his office. She confirmed understandthe plan. Patient stable to discharge home. Was prescribed lidocaine patches. Patient referred to primary care physician and orthopedic physician. Impression: 1. Lumbar back spasm 2. Chronic anemia 3. Chronic thrombocytopenia 4. Chronic transaminitis secondary to hepatitis C cirrhosis Lab Data Labs: Laboratory Results - last 24 hr 07/11/25 07/11/25 09:06 09:38 WBC 6.2 RBC 3.65 L Hgb 10.7 L Hct 32.5 L MCV 89.0 MCH 29.3 MCHC 32.9 RDW Std Deviation 55.0 H RDW Coeff of Katalina 16.9 H Plt Count 39 L* MPV 12.3 H Immature Gran % (Auto) 0.300 Neut % (Auto) 70.2 H Lymph % (Auto) 17.3 L Dickenson % (Auto) 9.5 Eos % (Auto) 2.4 Baso % (Auto) 0.3 Absolute Neuts (auto) 4.3 Absolute Lymphs (auto) 1.07 Nucleated RBC % 0 Platelet Estimate MKD DEC Sodium 136 Potassium 3.7 Chloride 107 Carbon Dioxide 19.2 L Anion Gap 10 BUN 15 Creatinine 1.01 Estim Creat Clear Calc 67.43 Est GFR (MDRD) Non-Af 67 BUN/Creatinine Ratio 14.4 Glucose 132 H Calcium 8.8 Total Bilirubin 1.77 H AST 101 H ALT 52 H Alkaline Phosphatase 105 H Total Protein 6.7 Albumin 3.1 L Globulin 3.6 Albumin/Globulin Ratio 0.9 Urine Color Yellow Urine Clarity Sl. Cloudy Urine pH 6.0 Ur Specific [place] 1.025 Urine Protein 30 H Urine Glucose (UA) Normal Urine Ketones Negative Urine Occult Blood 150 H Urine Nitrite Negative Urine Bilirubin Negative Urine Urobilinogen 4 H Ur Leukocyte Esterase Negative Urine RBC 0-5 SEEN Urine WBC 0 SEEN Ur Squamous Epith Cells 5-10 SEEN Urine Bacteria 1+ Urine Mucus 1+ Urine Opiates Screen NEGATIVE U Buprenorphine Qual NEGATIVE Ur Oxycodone Screen PRESUMPTIVE POSITIVE Urine Methadone Screen NEGATIVE Urine Fentanyl Screen NEGATIVE Ur Barbiturates Screen NEGATIVE Ur Phencyclidine Scrn NEGATIVE Ur Amphetamines Screen NEGATIVE U Benzodiazepines Scrn NEGATIVE Urine Cocaine Screen NEGATIVE U Cannabinoids Screen NEGATIVE Radiography Diagnostic Testing: Clinical Impression(s) from Imaging Studies Lumbar Spine X-Ray 07/11/25 09:40 IMPRESSION: There is straightening of the lumbar curvature which can indicate spasm. There is loss of disc height which is most severe at L5-S1. Reading Location: [facility] Discharge Plan Triage Chief Complaint: Back ED Provider: Brock Ruiz Dx/Rx/DC Orders Clinical Impression: Back pain Instructions: ED Back Spasm, No Trauma Prescriptions: New lidocaine [Lidoderm] 5 % adhesive patch,medicated 1 patch topical DAILY PRN (Reason: pain) 3 Days Qty: 3 0RF Rx Instructions: leave on most painful area for up to 12 hrs No Action trazodone 50 mg tablet 100 mg PO QHS PRN (Reason: sleep) pantoprazole 40 mg tablet,delayed release (DR/EC) 40 mg PO DAILY Patient Comments: am spironolactone 100 mg tablet 100 mg PO DAILY Patient Comments: am gabapentin 300 mg capsule 300 mg PO TID Patient Comments: am buspirone 7.5 mg tablet 7.5 mg PO TID aripiprazole 5 mg tablet 5 mg PO DAILY Patient Comments: am ramelteon 8 mg tablet 8 mg PO QHS Patient Comments: take 30min prior to bedtime cholecalciferol (vitamin D3) 50 mcg (2,000 unit) capsule 50 mcg PO DAILY Patient Comments: am desvenlafaxine succinate 25 mg tablet extended release 24 hr 25 mg PO DAILY Patient Comments: am Rx Instructions: take with 50mg tablet to =75mg topiramate 50 mg tablet 50 mg PO DAILY Patient Comments: am desvenlafaxine succinate 50 mg tablet extended release 24 hr 50 mg PO DAILY Patient Comments: am Rx Instructions: take with 25mg tab to = 75mg lactulose 10 gram/15 mL solution 10 g PO TID PRN (Reason: stomach upset) Qty: 3000 0RF furosemide [Lasix] 40 mg tablet 40 mg PO DAILY Qty: 30 0RF Rx Instructions: start on 04/14/24 Xifaxan 550 mg tablet 550 mg PO BID 30 Days Qty: 60 6RF ursodiol 500 mg tablet 500 mg PO TID 30 Days Qty: 90 5RF Patient Comments: am Other Ambulatory Orders: CBC W/Diff, Automated (Routine) Timeframe: 3 Days Facility: [facility] - Location: Laboratory 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 Return back to ED if symptoms change or worsen. Return back to the ED if you have any spontaneous bleeding. Follow-up with primary care physician, Dr. Foster, orthopedic physician. Continue your home medications. Recommend rest and heating pad as needed. Print Language: Czech Disposition Disposition: Home, Self Care Discharge Date/Time: 07/11/25 12:24 What to do if you have Problems For any increased pain, shortness of breath, bleeding, nausea or vomiting, chestpain, or any unexpected problems, contact your Primary Care Provider. Call [facility] ([phone]) or report to the closest Emergency Room. Call 911 if necessary. 07/11/25 1517 <Electronically signed by Brock Ruiz DO> Cosigner Signature (if applicable): CC: Eyad BALDERRAMA Beam ~ Signed [facility] Work Phone: Evaluation + Plan note No data available for this section [facility] Evaluation note* Diagnosis Viral illness- Primary Unspecified viral infection, in conditions classified elsewhere and of unspecified site [facility] Diagnosis Bacterial skin infection- Primary Unspecified local infection of skin and subcutaneous tissue Acne vulgaris Other acne Chronic midline low back pain with bilateral sciatica [facility] Diagnosis Encounter for screening mammogram for breast cancer [facility]* Diagnosis Wound check, abscess- Primary Encounter for other specified aftercare [facility]* Diagnosis Dermatitis- Primary Contact dermatitis and other eczema, due to unspecified cause [facility] noteNo assessment information availableWGen[facility] Work Phone: Evaluation note* Diagnosis Onset Date Resolution Status Acute hepatic encephalopathy acute Hyperammonemia acute [facility] Work Phone: Evaluation note* Diagnosis Chronic midline low back pain with bilateral sciatica [facility] Diagnosis Onset Date Resolution Status Acute hepatic encephalopathy resolved Hyperammonemia resolved Cirrhosis of liver chronic Hepatitis C, chronic chronic [facility] Work Phone: Evaluation note* Diagnosis Cellulitis of chin- Primary Cellulitis and abscess of face Picking own skin Other disorder of impulse control URI, acute Acute upper respiratory infections of unspecified site [facility]* Diagnosis Skin infection- Primary Unspecified local infection of skin and subcutaneous tissue documented in this encounter [facility] note* Diagnosis Cellulitis of chin Cellulitis and abscess of face documented in this encounter [facility] note* Diagnosis Low back pain, unspecified back pain laterality, unspecified chronicity, unspecified whether sciatica present documented in this encounter [facility] note* Diagnosis Onset Date Resolution Status Ascites acute Hyperbilirubinemia acute Skin ulcer of left great toe acute Subungual hematoma of great toe of left foot acute Cirrhosis of liver chronic [facility] Work Phone: Evaluation note* Diagnosis Encounter for screening mammogram for breast cancer documented in this [facility]* Diagnosis Onset Date Resolution Status Cirrhosis of liver acute Skin ulcer of left great toe acute Ascites chronic Subungual hematoma of great toe of left foot resolved Cirrhosis of liver acute Iron deficiency anemia acute Skin ulcer of left great toe acute Hepatitis C, chronic chronic Subungual hematoma of great toe of left foot resolved Ascites chronic [facility] Work Phone: Evaluation note* Diagnosis Small bowel obstruction (HCC)- Primary Unspecified intestinal obstruction Small bowel obstruction (HCC) Unspecified intestinal obstruction Polysubstance use disorder documented in this encounter [facility] note* Diagnosis Onset Date Resolution Status [...] chronic Cirrhosis of liver acute Ascites chronic [facility] Work Phone: Evaluation note* Diagnosis Open wound of skin- Primary documented in this encounter [facility] note* Diagnosis Onset Date Resolution Status [...] resolved Cirrhosis of liver acute Ascites resolved [facility] Work Phone: Evaluation note* Diagnosis Cirrhosis [...] unspecified whether recurrent documented in this encounter [facility] note* Diagnosis Onset Date Resolution Status Ascites resolved Cirrhosis of liver acute Ascites resolved Cirrhosis of liver acute [facility] Work Phone: Evaluation note* Diagnosis Onset Date Resolution Status Ascites resolved Cirrhosis of liver acute Ascites resolved Chronic pain of toe of right foot acute Cirrhosis of liver acute Iron deficiency anemia acute Nail dystrophy acute Tinea unguium acute Hepatitis C, chronic chronic Ascites resolved [facility] Work Phone: Evaluation note* Diagnosis Chronic hepatitis C without hepatic coma (HCC)- Primary Chronic hepatitis C without mention of hepatic coma Cirrhosis of liver with ascites, unspecified hepatic cirrhosis type (HCC) (HCC) Other ascites Nausea and vomiting, unspecified vomiting type documented in this encounter [facility] note* Diagnosis Onset Date Resolution Status Ascites resolved Chronic pain of toe of right foot acute Iron deficiency anemia acute Nail dystrophy acute Tinea unguium acute Hepatitis C, chronic chronic Ascites resolved [facility] Work Phone: Evaluation note* Diagnosis Low back pain, unspecified back pain laterality, unspecified chronicity, unspecified whether sciatica present documented in this encounter [facility] note* Diagnosis Skin sore- Primary Unspecified disorder of skin and subcutaneous tissue Gross hematuria Acute cystitis with hematuria Acute cystitis Anxiety with depression documented in this encounter [facility] note* Diagnosis Skin ulcer, limited to breakdown of skin (HCC)- Primary Excoriation (skin-picking) disorder MRSA (methicillin resistant Staphylococcus aureus) Methicillin resistant Staphylococcus aureus in conditions classified elsewhere and of unspecified site Local infection of skin and subcutaneous tissue Unspecified local infection of skin and subcutaneous tissue documented in this encounter [facility] note* Diagnosis Encounter for screening mammogram for breast cancer documented in this encounter [facility] note* Diagnosis Kidney stone- Primary Calculus of kidney Acute cystitis without hematuria Acute cystitis Cirrhosis of liver with ascites, unspecified hepatic cirrhosis type (HCC) (HCC) Thrombocytopenia (HCC) Thrombocytopenia, unspecified Seasonal allergic rhinitis due to pollen documented in this encounter [facility] note* Diagnosis Low back pain, unspecified back pain laterality, unspecified chronicity, unspecified whether sciatica present documented in this encounter [facility] note* Diagnosis Urinary frequency- Primary Acute cystitis with hematuria Acute cystitis Abrasion of foot with infection, unspecified laterality, initial encounter Skin lesion Unspecified disorder of skin and subcutaneous tissue documented in this encounter [facility] note* Diagnosis Diarrhea, unspecified type- Primary Kidney stone Calculus of kidney Acute cystitis without hematuria Acute cystitis Cirrhosis of liver with ascites, unspecified hepatic cirrhosis type (HCC) (HCC) Possible exposure to STD Other specified personal history presenting hazards to health History of abnormal cervical Pap smear Personal history of other genital system and obstetric disorders documented in this encounter [facility] note* Diagnosis Diarrhea, unspecified type documented in this encounter [facility] note* Diagnosis Hypokalemia- Primary Hypopotassemia documented in this encounter [facility] note* Diagnosis Alcoholic cirrhosis of liver with ascites (CMS/HCC)- Primary Chronic hepatitis C with cirrhosis (CMS/HCC) Chronic hepatitis C without mention of hepatic coma documented in this encounter [facility] note* Diagnosis Cirrhosis of liver (CMS/HCC)- Primary Cirrhosis of liver without mention of alcohol documented in this encounter [facility] note* Diagnosis Alcoholic cirrhosis of liver with ascites (CMS/HCC)- Primary Ascites Other ascites Amphetamine-type substance use disorder, severe (CMS/HCC) Chronic hepatitis C with cirrhosis (CMS/HCC) Chronic hepatitis C without mention of hepatic coma documented in this encounter [facility] note* Diagnosis Ascites- Primary Other ascites documented in this encounter [facility] note* Diagnosis Cirrhosis of liver with ascites (CMS/HCC)- Primary Alcoholic cirrhosis of liver with ascites (CMS/HCC)- Primary Ascites- Primary Other ascites documented in this encounter [facility] note* Diagnosis Cirrhosis of liver with ascites (CMS/HCC)- Primary Ascites- Primary Other ascites Ascites- Primary Other ascites [facility] Diagnosis Cirrhosis of liver with ascites (CMS/HCC)- Primary Ascites- Primary Other ascites [facility] Diagnosis Cirrhosis of liver with ascites (CMS/HCC)- Primary Ascites- Primary Other ascites Ascites Other ascites Ascites- Primary Other ascites Ascites- Primary Other ascites [facility] Diagnosis Cirrhosis of liver with ascites (CMS/HCC)- Primary Ascites- Primary Other ascites Ascites- Primary Other ascites Ascites Other ascites [facility] Diagnosis Cirrhosis of liver with ascites (CMS/HCC)- Primary Ascites- Primary Other ascites [facility] Diagnosis Acute metabolic encephalopathy- Primary Hepatic [...] Ascites Other ascites [facility] Diagnosis Acute metabolic encephalopathy- Primary Hepatic [...] Primary Other ascites [facility] Diagnosis Acute metabolic encephalopathy- Primary Hepatic [...] Ascites Other ascites [facility] Diagnosis Acute metabolic encephalopathy- Primary Hepatic [...] (CMS/HCC) Thrombocytopenia, unspecified [facility] Diagnosis Acute metabolic encephalopathy- Primary Hepatic [...] Primary Other ascites [facility] Diagnosis Acute metabolic encephalopathy- Primary Hepatic [...] mention of alcohol [facility] Diagnosis Acute metabolic encephalopathy- Primary Hepatic [...] Primary Other ascites [facility] Diagnosis Acute metabolic encephalopathy- Primary Hepatic [...] Primary Other ascites [facility] Diagnosis Acute metabolic encephalopathy- Primary Hepatic [...] of unspecified site [facility] Diagnosis Acute metabolic encephalopathy- Primary Hepatic [...] Primary Other ascites [facility] Diagnosis Acute metabolic encephalopathy- Primary Hepatic [...] Ascites Other ascites [facility] Diagnosis Acute metabolic encephalopathy- Primary Hepatic [...] pain, unspecified site [facility] Diagnosis Acute metabolic encephalopathy- Primary Hepatic [...] for screening mammogram [facility] Diagnosis Onychomycosis- Primary Dermatophytosis of nail Pain in toe of left foot Pain in limb Pain in toe of right foot Pain in limb Plantar fasciitis Plantar fascial fibromatosis documented [facility] this encounter [facility] Author Sowmya Mirza [facility] December 04, 2023 9:28pm Note Date/Time December 04, 2023 8:3 7pm [facility] Medical Records Department [address] [place] [id number] H&P Exam - Hospitalist 12/04/232032 MR#: [id number] Acct: [id number] Name: CAROLINA HIGHTOWER Rep #:[id number] 13 : 1975 48 From: Sowmya Mirza MD PCP: Dr. Dacia Acosta MD Status:AD M IN [id number] General Date of Admission: 12/04/23 Date of Service: 12/04/23 Chief Complaint: Abdominal pain, dysuria. HPI Narrative The patient is a 48 y/o F w/ PMHx: Obesity, Chronic anemia/iron deficiency anemia, Anxiety and Depression, Chronic hepatitis C/cirrhosis with chronic LFT/Bilirubin elevations w/ Hx polysubstance abuse (heroin, cannabis, methamphetamine), Tobacco use, Chronic thrombocytopenia who presents to the [facility] ED on 12/04/23 with history of [...] % (Auto) 62.4, Lymph % (Auto) 23.3, Dickenson % (Auto) 10.7 H, Eos % (Auto) [...] Sl. Cloudy, Urine pH 6.5, Ur Specific [place] 1.015, Urine Protein 30 H, Urine Glucose [...] 19:07 EDT Reading Location ID and State: [facility] / [place] , Service support , Assessment & Plan [...] use, Chronic thrombocytopenia who presents to the [facility] ED on 12/04/23 with history of [...] Patient does not have healthcare power of trial attorney nor livingwill. Full Code status. Charges/Coding Visit Charges Inpatient E&M: 24347 Init Hosp L3 12/04/232127 <Electronically signed by Sowmya Mirza MD> Cosigner Signature (if applicable): CC: Dr. Sowmya Mirza MD; Dr. Dacia Acosta MD~ Signed [facility] Work Phone: Hospital Discharge instructions Additional Instructions Do not pick at the wound. Take both antibiotics the Bactrim 1 pill twice a day and Keflex 1 pill 4 times a day till gone. Follow-up with your doctor if not improving.[facility] Work Phone: Hospital Discharge instructions Additional [...] care physician for further outpatient evaluation and management.[facility] Work Phone: Hospital Discharge instructions Additional Instructions Your laboratory values look better than they did in recent weeks. Your heart rate was between 45 and 55, stop the nadolol and follow-up with your PCP. Return for any worsening symptoms.[facility] Work Phone: Hospital Discharge instructions Additional [...] Please follow with your primary care physician, area coordinator for further outpatient evaluation and management.[facility] Work Phone: Hospital Discharge instructions* Attachments The following attachments cannot be sent through Care Everywhere. * Ascites (General Information) (Czech) * Cirrhosis of the Liver (General Information) (Czech) * Paracentesis (General Information) (Czech) * Naloxone (Into the nose) (Czech) [facility] Attachments The following attachments cannot be sent through Care Everywhere. * Paracentesis (Discharge Care) (Czech) [facility]* Attachments The following attachments cannot be sent through Care Everywhere. * Paracentesis (Discharge Care) (Czech) [facility]* Attachments The following attachments cannot be sent through Care Everywhere. * Cirrhosis of the Liver (Discharge Care) (Czech) * Abdominal Pain (Discharge Care) (Czech) * Paracentesis (Discharge Care) (Czech) * Nicotine (Absorbed through the skin) (Czech) * Ascites (Discharge Care) (Czech) [facility] Additional Instructions Your abdominal [...] PM today. Follow-up with Dr. Adams with GI.[facility] Work Phone: Hospital Discharge instructions Additional Instructions Return back to the ED as needed. Afrin and nose plug if rebleeding. Follow-up with your ENT specialist.[facility] Work Phone: Hospital Discharge instructionsAdditional Instructions You need to have your CBC repeated and 3 days to reassess your platelets. Return back to ED if symptoms change or worsen. Return back to the ED if you have any spontaneous bleeding. Follow-up with primary care physician, Dr. Foster, orthopedic physician. Continue your home medications. Recommend rest and heating pad as needed.[facility] Work Phone: Hospital Discharge instructionsAdditional Instructions Your labs are consistent with your prior labs. I spoke to ultrasound. They could not do it today but they think they can get you in the schedule possibly as early as tomorrow to have your abdominal paracentesis and get your ascites drained. They will call you in the morning. To get this set up.[facility] Work Phone: Reason for referral (narrative)* Diagnostic Procedure Only (Routine) - Pending Review Specialty Diagnoses / Procedures Referred By Marivel cao Referred To Contact BR IMAGING Diagnoses Encounter for screening mammogram for breast cancer Procedures JEANETH SCREENING SCREENING MAMMOGRAPHY BI 2-VIEW BREAST INC Dacia Rice MD [address] [place] [address] Br Imaging [address] [place] [address] Referral ID Status Reason Start Date Expiration Date Visits Requested Visits Authorized [id number] Pending Review Auto-Generat ed Referral 03/24/2022 04/23/2023 1 1 [facility] for referral (narrative)* Diagnostic Procedure Only (Routine) - Closed Specialty Diagnoses / Procedures Referred By Marivel cao Referred To Contact BR IMAGING Diagnoses Encounter for screening mammogram for breast cancer Procedures JEANETH SCREENING SCREENING MAMMOGRAPHY BI 2-VIEW BREAST INC Dacia Rice MD [address] [place] [address] Br Imaging [address] [place] [address] Referral ID Status Reason Start Date Expiration Date V isits Requested Visits Authorized [id number] Closed Auto-Generate d Referral 03/24/2022 04/23/2023 1 1 [facility] for referral (narrative)* Diagnostic Procedure Only (Routine) - Authorized Specialty Diagnoses / Procedures Referred By Saiac t Referred To Contact BR IMAGING Diagnoses Encounter for screening mammogram for breast cancer Procedures JEANETH SCREENING SCREENING MAMMOGRAPHY BI 2-VIEW BREAST INC Dacia Rice MD [address] [place] [address] Br Imaging [address] [place] [address] Referral ID Status Reason Start Date Expiration Date Visits Requested Visits Authorized [id number] Authorized Auto-Generat ed Referral 02/29/2024 03/30/2025 1 1 [facility] for referral (narrative)* Consultation (Routine) - Incomplete Specialty Diagnoses / Procedures Referred By Contact Referred To Contact Interventional Radiology / Radiology Diagnoses Alcoholic cirrhosis of liver with ascites (CMS/HCC) Chronic hepatitis C with cirrhosis (CMS/HCC) Pete Ponce MD [facility] [place] [address] [place] [address] [facility] Inter[facility] Rad [address] [place] [address] [place] [phone] Referral ID Status Reason Start Date Expiration Date V isits Requested Visits Authorized [id number] Incomplete 07/02/2024 07/02/2025 1 1 [facility] for referral (narrative)* Consultation (Routine) - Canceled Specialty Diagnoses / Procedures Referred By Contact Referred To Contact Interventional Radiology / Radiology Diagnoses Cirrhosis of liver (CMS/HCC) Pete Ponce MD [facility] [place]. [address] [place] [address] [facility] [address] [place] [address] [place] [phone] Referral ID Status Reason Start Date Expiration Date V isits Requested Visits Authorized [id number] Canceled 07/05/2024 07/05/2025 1 1 [facility] for referral (narrative)* Consultation (Routine) - Incomplete Specialty Diagnoses / Procedures Referred By Contact Referred To Contact Interventional Radiology Diagnoses Abdominal pain Ascites Isabella Ch MD [address] [place] [address] [facility] Interventional [facility] [address] [place] [address] [place] [phone] Referral ID Status Reason Start Date Expiration Date V isits Requested Visits Authorized [id number] Incomplete 12/13/2024 12/13/2025 1 1 [facility]No reason for referral information availableWGenesis [facility] Work Phone: Reason for visit Narrative* Diagnostic Procedure Only (Routine) - Closed Specialty Diagnoses / Procedures Referred By Contac t Referred To Contact BR IMAGING Diagnoses Encounter for screening mammogram for breast cancer Procedures JEANETH SCREENING SCREENING MAMMOGRAPHY BI 2-VIEW BREAST INC CAD Dacia Acosta MD [address] [place] [address] Br Imaging [address] [place] [address] Referral ID Status Reason Start Date Expiration Date V isits Requested Visits Authorized [id number] Closed Auto-Generate d Referral 03/24/2022 04/23/2023 1 1 [facility] Summary Purpose Family History No [...] Documents on File Type Date Recorded 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 Advance Directive(s) 08/05/2018 8:00 PM Advance Directive(s) 08/04/2018 9:24 AM Documents on File Type Date Recorded 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 Advance Directive(s) 08/05/2018 8:00 PM Advance Directive(s) 08/04/2018 9:24 AM Advance Directive Response Recorded Date/ Time Advance Directives No December 24, 014 5:29pm Living Will No [place] 20th, 202 2 7:58pm Power of Sql Architect No May 15 7:58pm Advance Directive Response Recorded Date/ Time Advance Directives No December 24 2 014 5:29pm Living Will No May 19 2 6:05pm Power of Sql Architect No May 19 022 6:05pm Advance Directive Response Recorded Date/ Time Advance Directives No December 24 2 014 5:29pm Living Will No May 19 2 10:31pm Power of Sql Architect No May 19 022 10:31pm Advance Directive Response Recorded Date/ Time Advance Directives No December 24 2 014 4:29pm Living Will No May 19 2 9:31pm Power of Sql Architect No May 19 9:31pm Advance Directive Response Recorded Date/ Time Advance Directives No December 24 014 4:29pm Living Will No September 14 3:18pm Power of Sql Architect No September 14, 2022 3:18pm Advance Directive Response Recorded Date/ Time Advance Directives No December 24 014 5:29pm Living Will No April 25, 2023 3:29pm Power of Sql Architect No April 25 3 3:29pm Advance Directive Response Recorded Date/ Time Advance Directives No December 24 014 5:29pm Living Will No July 20 5:57pm Power of Sql Architect No July 20, 2023 5:57pm Advance Directive Response Recorded Date/ Time Advance Directives No December 24 014 5:29pm Living Will No July 21 3:03am Power of Sql Architect No July 21, 2023 3:03am Advance Directive Response Recorded Date/ Time Advance Directives No December 24 014 4:29pm Living Will No August 22 023 7:03am Power of Sql Architect No August 22, 2023 7:03am Latest Code Status on File Code Status Date Activated Date Inactivated Comments Full Code 09/10/2023 5:47 AM 09/15/2023 8:53 PM Latest Code Status on File Code Status Date Activated Date Inactivated Comments Full Code 09/10/2023 5:47 AM 09/15/2023 8:53 PM Advance Directive Response Recorded Date/ Time Advance Directives No March 31st, 2 014 4:29pm Living Will No September 24, 023 8:43pm Power of Sql Architect No September 24, 2023 8:43pm Advance Directive Response Recorded Date/ Time Advance Directives No December 24 014 4:29pm Living Will No October 06 11:14pm Power of Sql Architect No October 06, 2023 11:14pm Advance Directive Response Recorded Date/ Time Advance Directives No December 24 014 4:29pm Living Will No November 05, 024 7:41pm Power of Sql Architect No November 05, 2023 7:41pm Advance Directive Response Recorded Date/ Time Advance Directives No December 24 014 4:29pm Living Will No November 10 024 4:09pm Power of Sql Architect No November 10, 2023 4:09pm Latest Code Status on File Code Status Date Activated Date Inactivated Comments Full Code 11/18/2023 5:41 PM 11/23/2023 8:49 PM Question Answer Comments Full Code Order Discussed With: Patient Advance Directive Response Recorded Date/ Time Advance Directives No December 24 014 5:29pm Living Will No December 04, 2023 5:14pm Power of Sql Architect No December 03 5:14pm Advance Directive Response Recorded Date/ Time Advance Directives No December 24 5:29pm Living Will No December 04, 2023 10:16pm Power of Sql Architect No December 03 10:16pm Date Activated Date Inactivated Comments 11/18/2023 5:41 PM 11/23/2023 8:49 PM Question Answer Comments Full Code Order Discussed With: Patient Advance Directive Response Recorded Date/ Time Advance Directives No December 24 5:29pm Living Will No December 09, 2023 6:53pm Power of Sql Architect No December 08 6:53pm Advance Directive Response Recorded Date/ Time Advance Directives No December 24 014 5:29pm Living Will No December 26, 2023 11:09am Power of Sql Architect No December 25 11:09am Date Activated Date Inactivated Comments 11/18/2023 5:41 PM 11/23/2023 8:49 PM Question Answer Comments Full Code Order Discussed With: Patient Advance Directive Response Recorded Date/ Time Advance Directives No December 24 014 4:29pm Living Will No November 07 024 8:02am Power of Sql Architect No November 07, 2023 8:02am Date Activated [...] Recorded Date/ Time Advance Directives No January 18 025 3:18pm Do you have a Healthcare Power of Sql Architect? No February 04, 2025 11:45am Advance Directive Response Recorded Date/ Time Advance Directives No January 18 025 3:18pm Do you have a Healthcare Power of Sql Architect? No February 04, 2025 11:45am Do you have a Healthcare Power of Sql Architect? No February 08, 2025 11:25am Advance Directive Response Recorded Date/ Time Advance Directives No January 18 025 3:18pm Do you have a Healthcare Power of Sql Architect? No February 04, 2025 11:45am Do you have a Healthcare Power of Sql Architect? No February 08, 2025 11:25am Do you have a Healthcare Power of Sql Architect? No February 21, 2025 11:54pm Advance Directive Response Recorded Date/ Time Advance Directives No January 18 025 3:18pm Do you have a Healthcare Power of Sql Architect? No February 26, 2025 8:37pm Do you have a Healthcare Power of Sql Architect? No February 04, 2025 11:45am Do you have a Healthcare Power of Sql Architect? No February 08, 2025 11:25am Do you have a Healthcare Power of Sql Architect? No February 21, 2025 11:54pm Advance Directive Response Recorded Date/ Time Advance Directives No January 18, 2 025 3:18pm Do you have a Healthcare Power of Sql Architect? No March 13, 2025 4:01pm Do you have a Healthcare Power of Sql Architect? No February 26, 2025 8:37pm Do you have a Healthcare Power of Sql Architect? No February 04, 2025 11:45am Do you have a Healthcare Power of Sql Architect? No February 08, 2025 11:25am Do you have a Healthcare Power of Sql Architect? No February 21, 2025 11:54pm Advance Directive Response Recorded Date/ Time Do you have a Healthcare Power of Sql Architect? No March 13, 2025 4:01pm Do you have a Healthcare Power of Sql Architect? No February 26, 2025 8:37pm Do you have a Healthcare Power of Sql Architect? No February 04, 2025 11:45am Do you have a Healthcare Power of Sql Architect? No February 08, 2025 11:25am Do you have a Healthcare Power of Sql Architect? No February 21, 2025 11:54pm Advance Directives No January 18, 025 3:18pm Advance Directive Response Recorded Date/ Time Do you have a Healthcare Power of Sql Architect? No March 13, 2025 4:01pm Advance Directives No January 18, 025 3:18pm Advance Directive Response Recorded Date/ Time Do you have a Healthcare Power of Sql Architect? No July 11, 2025 8:50am Do you have a Healthcare Power of Sql Architect? No July 15, 2025 3:07pm Advance Directives No January 18, 025 3:18pm Advance Directive Response Recorded Date/ Time Do you have a Healthcare Power of Sql Architect? No July 11, 2025 7:50am Do you have a Healthcare Power of Sql Architect? No July 15, 2025 2:07pm Advance Directives No January 18, 025 2:18pm Health Concerns Infection Onset Date Last Indicated [...] vulgaris Procedures CONSULT TO DERMATOLOGY Tresa Sandoval APRN.TRAVELING PASSENGER AGENT [address] [place] [address] Referral ID Status Reason Start Date Expiration Date Visits Requested Visits Authorized [id number] Ref Not Required PCP Requested Referral 03/11/2022 03/11/2023 1 1 Specialty Diagnoses / Procedures Referred By Contac t Referred To Contact Saima Lim MD [address] [place] [address] Referral ID Status Reason Start Date Expiration Date V isits Requested Visits Authorized [id number] Pending Review 1 1 Specialty Diagnoses / Procedures Referred By Contac t Referred To Contact Dermatology Diagnoses Open wound of skin Procedures CONSULT TO DERMATOLOGY Latasha William PA-C [address] [place] [id number] Referral ID Status Reason Start Date Expiration Date Visits Requested Visits Authorized [id number] Ref Not Required PCP Requested Referral 11/01/2023 10/31/2024 1 1 Specialty Diagnoses / Procedures Referred By Contac t Referred To Contact Gynecology Diagnoses History of abnormal cervical Pap smear Procedures CONSULT TO GYNECOLOGY OFFICE/OUTPATIENT [facility] 60 MINUTES Claribel Lagunas APRN.TRAVELING PASSENGER AGENT [address] [place] [address] Referral ID Status Reason Start Date Expiration Date Visits Requested Visits Authorized [id number] Authorized PCP Requested Referral Auto-Generate d Referral 05/10/2024 05/10/2025 1 1 Specialty Diagnoses / Procedures Referred By Contac t Referred To Contact CT IMAGING Diagnoses Diarrhea, unspecified type Procedures CT ABD/PEL W IVCON CT ABD & PELVIS W/CONTRAST Claribel Lagunas APRN.TRAVELING PASSENGER AGENT [address] [place] [address] [place] [address] Referral ID Status Reason Start Date Expiration Date Visits Requested Visits Authorized [id number] Pending Review Auto-Genera mary Referral Patient Cleared - Admin/Chair man/Directo r advise to proceed or did not respond 05/10/2024 06/09/2025 4 2 Specialty Diagnoses / Procedures Referred By Marivel cao Referred To Contact Radiology Diagnoses Visit for screening mammogram Procedures Mammo Screening (3D) Bilateral Referral, Self [address] [place] [address] [facility] Mammography [address] [place] [address] Referral ID Status Reason Start Date Expiration Date Visits Re quested Visits Authorized [id number] Closed 08/16/2024 08/16/2025 1 1 Chief Complaint [...] ABD PAIN February 21, 2025 10:34 pm Chief Complaint Admit Date DISCUSS PARACENTESIS NOSE BLEEDS December 272024 2:48pm abd February 04, 2025 10:58 am PAIN February 08, 2025 11:16 am ABD PAIN February 21, 2025 10:34 pm nosebleed February 26, 2025 8:33p m Chief Complaint Admit Date DISCUSS PARACENTESIS NOSE BLEEDS December 272024 2:48pm abd February 04, 2025 10:58 am PAIN February 08, 2025 11:16 am ABD PAIN February 21, 2025 10:34 pm nosebleed February 26, 2025 8:33p m ASCITES March 07, 2025 8:04 am Reason for Visit Admit Date Cirrhosis of liver January 23, 2025 2:4 8pm Hepatitis C, chronic January 23, 2025 2: 48pm Cirrhosis of liver March 15, 2025 11:1 5am Hepatitis C, chronic March 15, 2025 11: 15am Chief Complaint Admit Date DISCUSS PARACENTESIS NOSE BLEEDS December 272024 2:48pm abd February 04, 2025 10:58 am PAIN February 08, 2025 11:16 am ABD PAIN February 21, 2025 10:34 pm nosebleed February 26, 2025 8:33p m ASCITES March 07, 2025 8:04 am SYNCOPE AND COLLAPSE April 04, 2025 9:0 6am Chief Complaint Admit Date DISCUSS PARACENTESIS NOSE BLEEDS December 272024 2:48pm abd February 04, 2025 10:58 am PAIN February 08, 2025 11:16 am ABD PAIN February 21, 2025 10:34 pm nosebleed February 26, 2025 8:33p m ASCITES March 07, 2025 8:04 am SYNCOPE AND COLLAPSE April 04, 2025 9:0 6am SYNCOPE AND COLLAPSE April 04, 2025 9:1 9am XRAY LEFT HUMERUS 2 VIEWS LEFT FOREARM 2 VIEWS May 07, 2025 11:56am Chief Complaint Admit Date DISCUSS PARACENTESIS NOSE BLEEDS December 272024 2:48pm abd February 04, 2025 10:58 am PAIN February 08, 2025 11:16 am ABD PAIN February 21, 2025 10:34 pm nosebleed February 26, 2025 8:33p m ASCITES March 07, 2025 8:04 am SYNCOPE AND COLLAPSE April 04, 2025 9:0 6am SYNCOPE AND COLLAPSE April 04, 2025 9:1 9am XRAY LEFT HUMERUS 2 VIEWS LEFT FOREARM 2 VIEWS May 07, 2025 11:56am 4 M FU May 15, 2025 2: 45pm Chief Complaint Admit Date abd February 04, 2025 10:58 am PAIN February 08, 2025 11:16 am ABD PAIN February 21, 2025 10:34 pm nosebleed February 26, 2025 8:33p m ASCITES March 07, 2025 8:04 am SYNCOPE AND COLLAPSE April 04, 2025 9:0 6am SYNCOPE AND COLLAPSE April 04, 2025 9:1 9am XRAY LEFT HUMERUS 2 VIEWS LEFT FOREARM 2 VIEWS May 07, 2025 11:56am 4 M FU May 15, 2025 2: 45pm Reason for Visit Admit Date Cirrhosis of liver March 15, 2025 11:1 5am Hepatitis C, chronic March 15, 2025 11: 15am Cirrhosis of liver May 15, 2025 2: 45pm Hepatitis C, chronic May 15, 2025 2 :45pm Chief Complaint Admit Date ASCITES March 07, 2025 8:04 am SYNCOPE AND COLLAPSE April 04, 2025 9:0 6am SYNCOPE AND COLLAPSE April 04, 2025 9:1 9am XRAY LEFT HUMERUS 2 VIEWS LEFT FOREARM 2 VIEWS May 07, 2025 11:56am 4 M FU May 15, 2025 2: 45pm Chief Complaint Admit Date SYNCOPE AND COLLAPSE April 04, 2025 9:0 6am SYNCOPE AND COLLAPSE April 04, 2025 9:1 9am XRAY LEFT HUMERUS 2 VIEWS LEFT FOREARM 2 VIEWS May 07, 2025 11:56am 4 M FU May 15, 2025 2: 45pm back July 11, 2025 8 :37am abd pain July 15, 2025 2 :32pm ASCITES July 16, 2025 1 0:01am Reason for Visit Admit Date Cirrhosis of liver May 15, 2025 2: 45pm Hepatitis C, chronic May 15, 2025 2 :45pm Chief Complaint Admit Date SYNCOPE AND COLLAPSE April 04, 2025 9:0 6am SYNCOPE AND COLLAPSE April 04, 2025 9:1 9am XRAY LEFT HUMERUS 2 VIEWS LEFT FOREARM 2 VIEWS May 07, 2025 11:56am 4 M FU May 15, 2025 2: 45pm back July 11, 2025 8 :37am abd pain July 15, 2025 2 :32pm ASCITES July 16, 2025 1 0:01am LUMBAR SPINE July 25, 2025 1 2:47pm RM 2 July 25, 2025 1 :35pm F/u--Cirrhosis of liver July 25 2:42pm E-ORDER July 25, 2025 3 :57pm Reason for Visit Admit Date Cirrhosis of liver May 15, 2025 2: 45pm Hepatitis C, chronic May 15, 2025 2 :45pm Degenerative disc disease at L5-S1 level July 25, 2025 12:47pm Lumbar radiculopathy July 25, 2025 12:47pm Thrombocytopenia July 25, 2025 2 :42pm Cirrhosis of liver July 25, 2025 2 :42pm Hepatitis C, chronic July 25, 2025 2:42pm Additional Source Comments INFORMATION SOURCE (unrecogn ized section and content) DATE CREATED AUTHOR 09/03/2018 [facility] DATE CREATED AUTHOR AUTHOR'S ORGANIZ ATION 10/02/2023 [facility] DATE CREATED AUTHOR AUTHOR'S ORGANIZ ATION 11/27/2023 [facility] DATE CREATED AUTHOR AUTHOR'S ORGANIZ ATION 03/30/2024 [facility] ([place]) DATE CREATED AUTHOR AUTHOR'S ORGANIZ ATION 06/08/2024 [facility] DATE CREATED AUTHOR AUTHOR'S ORGANIZ ATION 01/18/2025 [facility] DATE CREATED AUTHOR AUTHOR'S ORGANIZ ATION 02/20/2025 [facility] DATE CREATED AUTHOR AUTHOR'S ORGANIZ ATION 03/30/2025 [facility] DATE CREATED AUTHOR AUTHOR'S ORGANIZ ATION 06/15/2025 [facility] DATE CREATED AUTHOR AUTHOR'S ORGANIZ ATION 08/03/2025 [facility] DATE CREATED AUTHOR AUTHOR'S ORGANIZ ATION 08/04/2025 [facility] Source Comments (unrecognize d section and content) In the event this informatio n is protected by the Federal Confidentiality of Alcohol and Drug Abuse Patient Records regulations: The Federal rules restrict any use of the information to criminally investigate or prosecute any alcohol or drug abuse patient.[facility] the event this information is protected by the Federal Confidentiality of Alcohol and Drug Abuse Patient Records regulations: The Federal rules restrict any use of the information to criminally investigate or prosecute any alcohol or drug abuse patient.[facility] Center[facility] the event this information is protected by the Federal Confidentiality of Alcohol and Drug Abuse Patient Records regulations: The Federal rules restrict any use of the information to criminally investigate or prosecute any alcohol or drug abuse patient.[facility] Center[facility] the event this information is protected by the Federal Confidentiality of Alcohol and Drug Abuse Patient Records regulations: The Federal rules restrict any use of the information to criminally investigate or prosecute any alcohol or drug abuse patient.[facility] Center[facility] the event this information is protected by the Federal Confidentiality of Alcohol and Drug Abuse Patient Records regulations: The Federal rules restrict any use of the information to criminally investigate or prosecute any alcohol or drug abuse patient.[facility] Center[facility] the event this information is protected by the Federal Confidentiality of Alcohol and Drug Abuse Patient Records regulations: The Federal rules restrict any use of the information to criminally investigate or prosecute any alcohol or drug abuse patient.[facility] Center[facility] the event this information is protected by the Federal Confidentiality of Alcohol and Drug Abuse Patient Records regulations: The Federal rules restrict any use of the information to criminally investigate or prosecute any alcohol or drug abuse patient.[facility] Center[facility] the event this information is protected by the Federal Confidentiality of Alcohol and Drug Abuse Patient Records regulations: The Federal rules restrict any use of the information to criminally investigate or prosecute any alcohol or drug abuse patient.[facility] Center[facility] the event this information is protected by the Federal Confidentiality of Alcohol and Drug Abuse Patient Records regulations: The Federal rules restrict any use of the information to criminally investigate or prosecute any alcohol or drug abuse patient.[facility] Center[facility] the event this information is protected by the Federal Confidentiality of Alcohol and Drug Abuse Patient Records regulations: The Federal rules restrict any use of the information to criminally investigate or prosecute any alcohol or drug abuse patient.[facility] CenterIn the event this information is protected by the Federal Confidentiality of Alcohol and Drug Abuse Patient Records regulations: The Federal rules restrict any use of the information to criminally investigate or prosecute any alcohol or drug abuse patient.[facility] CenterIn the event this information is protected by the Federal Confidentiality of Alcohol and Drug Abuse Patient Records regulations: The Federal rules restrict any use of the information to criminally investigate or prosecute any alcohol or drug abuse patient.[facility] CenterIn the event this information is protected by the Federal Confidentiality of Alcohol and Drug Abuse Patient Records regulations: The Federal rules restrict any use of the information to criminally investigate or prosecute any alcohol or drug abuse patient.[facility] Center[facility] the event this information is protected by the Federal Confidentiality of Alcohol and Drug Abuse Patient Records regulations: The Federal rules restrict any use of the information to criminally investigate or prosecute any alcohol or drug abuse patient.[facility] CenterIn the event this information is protected by the Federal Confidentiality of Alcohol and Drug Abuse Patient Records regulations: The Federal rules restrict any use of the information to criminally investigate or prosecute any alcohol or drug abuse patient.[facility] CenterIn the event this information is protected by the Federal Confidentiality of Alcohol and Drug Abuse Patient Records regulations: The Federal rules restrict any use of the information to criminally investigate or prosecute any alcohol or drug abuse patient.[facility] CenterIn the event this information is protected by the Federal Confidentiality of Alcohol and Drug Abuse Patient Records regulations: The Federal rules restrict any use of the information to criminally investigate or prosecute any alcohol or drug abuse patient.[facility] CenterIn the event this information is protected by the Federal Confidentiality of Alcohol and Drug Abuse Patient Records regulations: The Federal rules restrict any use of the information to criminally investigate or prosecute any alcohol or drug abuse patient.[facility] CenterIn the event this information is protected by the Federal Confidentiality of Alcohol and Drug Abuse Patient Records regulations: The Federal rules restrict any use of the information to criminally investigate or prosecute any alcohol or drug abuse patient.[facility] CenterIn the event this information is protected by the Federal Confidentiality of Alcohol and Drug Abuse Patient Records regulations: The Federal rules restrict any use of the information to criminally investigate or prosecute any alcohol or drug abuse patient.[facility] CenterIn the event this information is protected by the Federal Confidentiality of Alcohol and Drug Abuse Patient Records regulations: The Federal rules restrict any use of the information to criminally investigate or prosecute any alcohol or drug abuse patient.[facility] CenterIn the event this information is protected by the Federal Confidentiality of Alcohol and Drug Abuse Patient Records regulations: The Federal rules restrict any use of the information to criminally investigate or prosecute any alcohol or drug abuse patient.[facility] CenterIn the event this information is protected by the Federal Confidentiality of Alcohol and Drug Abuse Patient Records regulations: The Federal rules restrict any use of the information to criminally investigate or prosecute any alcohol or drug abuse patient.[facility] CenterIn the event this information is protected by the Federal Confidentiality of Alcohol and Drug Abuse Patient Records regulations: The Federal rules restrict any use of the information to criminally investigate or prosecute any alcohol or drug abuse patient.[facility] CenterIn the event this information is protected by the Federal Confidentiality of Alcohol and Drug Abuse Patient Records regulations: The Federal rules restrict any use of the information to criminally investigate or prosecute any alcohol or drug abuse patient.[facility] CenterIn the event this information is protected by the Federal Confidentiality of Alcohol and Drug Abuse Patient Records regulations: The Federal rules restrict any use of the information to criminally investigate or prosecute any alcohol or drug abuse patient.[facility] CenterIn the event this information is protected by the Federal Confidentiality of Alcohol and Drug Abuse Patient Records regulations: The Federal rules restrict any use of the information to criminally investigate or prosecute any alcohol or drug abuse patient.[facility] CenterIn the event this information is protected by the Federal Confidentiality of Alcohol and Drug Abuse Patient Records regulations: The Federal rules restrict any use of the information to criminally investigate or prosecute any alcohol or drug abuse patient.[facility] CenterIn the event this information is protected by the Federal Confidentiality of Alcohol and Drug Abuse Patient Records regulations: The Federal rules restrict any use of the information to criminally investigate or prosecute any alcohol or drug abuse patient.[facility] CenterIn the event this information is protected by the Federal Confidentiality of Alcohol and Drug Abuse Patient Records regulations: The Federal rules restrict any use of the information to criminally investigate or prosecute any alcohol or drug abuse patient.[facility] CenterIn the event this information is protected by the Federal Confidentiality of Alcohol and Drug Abuse Patient Records regulations: The Federal rules restrict any use of the information to criminally investigate or prosecute any alcohol or drug abuse patient.[facility] CenterIn the event this information is protected by the Federal Confidentiality of Alcohol and Drug Abuse Patient Records regulations: The Federal rules restrict any use of the information to criminally investigate or prosecute any alcohol or drug abuse patient.[facility] CenterIn the event this information is protected by the Federal Confidentiality of Alcohol and Drug Abuse Patient Records regulations: The Federal rules restrict any use of the information to criminally investigate or prosecute any alcohol or drug abuse patient.[facility] CenterIn the event this information is protected by the Federal Confidentiality of Alcohol and Drug Abuse Patient Records regulations: The Federal rules restrict any use of the information to criminally investigate or prosecute any alcohol or drug abuse patient.[facility] CenterIn the event this information is protected by the Federal Confidentiality of Alcohol and Drug Abuse Patient Records regulations: The Federal rules restrict any use of the information to criminally investigate or prosecute any alcohol or drug abuse patient.[facility] CenterIn the event this information is protected by the Federal Confidentiality of Alcohol and Drug Abuse Patient Records regulations: The Federal rules restrict any use of the information to criminally investigate or prosecute any alcohol or drug abuse patient.[facility] CenterIn the event this information is protected by the Federal Confidentiality of Alcohol and Drug Abuse Patient Records regulations: The Federal rules restrict any use of the information to criminally investigate or prosecute any alcohol or drug abuse patient.[facility] CenterIn the event this information is protected by the Federal Confidentiality of Alcohol and Drug Abuse Patient Records regulations: The Federal rules restrict any use of the information to criminally investigate or prosecute any alcohol or drug abuse patient.[facility] CenterIn the event this information is protected by the Federal Confidentiality of Alcohol and Drug Abuse Patient Records regulations: The Federal rules restrict any use of the information to criminally investigate or prosecute any alcohol or drug abuse patient.[facility] CenterIn the event this information is protected by the Federal Confidentiality of Alcohol and Drug Abuse Patient Records regulations: The Federal rules restrict any use of the information to criminally investigate or prosecute any alcohol or drug abuse patient.[facility] CenterIn the event this information is protected by the Federal Confidentiality of Alcohol and Drug Abuse Patient Records regulations: The Federal rules restrict any use of the information to criminally investigate or prosecute any alcohol or drug abuse patient.[facility] CenterIn the event this information is protected by the Federal Confidentiality of Alcohol and Drug Abuse Patient Records regulations: The Federal rules restrict any use of the information to criminally investigate or prosecute any alcohol or drug abuse patient.[facility] CenterIn the event this information is protected by the Federal Confidentiality of Alcohol and Drug Abuse Patient Records regulations: The Federal rules restrict any use of the information to criminally investigate or prosecute any alcohol or drug abuse patient.[facility] CenterIn the event this information is protected by the Federal Confidentiality of Alcohol and Drug Abuse Patient Records regulations: The Federal rules restrict any use of the information to criminally investigate or prosecute any alcohol or drug abuse patient.[facility] CenterIn the event this information is protected by the Federal Confidentiality of Alcohol and Drug Abuse Patient Records regulations: The Federal rules restrict any use of the information to criminally investigate or prosecute any alcohol or drug abuse patient.[facility] CenterIn the event this information is protected by the Federal Confidentiality of Alcohol and Drug Abuse Patient Records regulations: The Federal rules restrict any use of the information to criminally investigate or prosecute any alcohol or drug abuse patient.[facility] CenterIn the event this information is protected by the Federal Confidentiality of Alcohol and Drug Abuse Patient Records regulations: The Federal rules restrict any use of the information to criminally investigate or prosecute any alcohol or drug abuse patient.[facility] CenterIn the event this information is protected by the Federal Confidentiality of Alcohol and Drug Abuse Patient Records regulations: The Federal rules restrict any use of the information to criminally investigate or prosecute any alcohol or drug abuse patient.[facility] CenterIn the event this information is protected by the Federal Confidentiality of Alcohol and Drug Abuse Patient Records regulations: The Federal rules restrict any use of the information to criminally investigate or prosecute any alcohol or drug abuse patient.[facility] CenterIn the event this information is protected by the Federal Confidentiality of Alcohol and Drug Abuse Patient Records regulations: The Federal rules restrict any use of the information to criminally investigate or prosecute any alcohol or drug abuse patient.[facility] CenterIn the event this information is protected by the Federal Confidentiality of Alcohol and Drug Abuse Patient Records regulations: The Federal rules restrict any use of the information to criminally investigate or prosecute any alcohol or drug abuse patient.[facility] CenterIn the event this information is protected by the Federal Confidentiality of Alcohol and Drug Abuse Patient Records regulations: The Federal rules restrict any use of the information to criminally investigate or prosecute any alcohol or drug abuse patient.[facility] CenterIn the event this information is protected by the Federal Confidentiality of Alcohol and Drug Abuse Patient Records regulations: The Federal rules restrict any use of the information to criminally investigate or prosecute any alcohol or drug abuse patient.[facility] CenterIn the event this information is protected by the Federal Confidentiality of Alcohol and Drug Abuse Patient Records regulations: The Federal rules restrict any use of the information to criminally investigate or prosecute any alcohol or drug abuse patient.[facility] CenterIn the event this information is protected by the Federal Confidentiality of Alcohol and Drug Abuse Patient Records regulations: The Federal rules restrict any use of the information to criminally investigate or prosecute any alcohol or drug abuse patient.[facility] CenterIn the event this information is protected by the Federal Confidentiality of Alcohol and Drug Abuse Patient Records regulations: The Federal rules restrict any use of the information to criminally investigate or prosecute any alcohol or drug abuse patient.[facility] CenterIn the event this information is protected by the Federal Confidentiality of Alcohol and Drug Abuse Patient Records regulations: The Federal rules restrict any use of the information to criminally investigate or prosecute any alcohol or drug abuse patient.[facility] CenterIn the event this information is protected by the Federal Confidentiality of Alcohol and Drug Abuse Patient Records regulations: The Federal rules restrict any use of the information to criminally investigate or prosecute any alcohol or drug abuse patient.[facility] CenterIn the event this information is protected by the Federal Confidentiality of Alcohol and Drug Abuse Patient Records regulations: The Federal rules restrict any use of the information to criminally investigate or prosecute any alcohol or drug abuse patient.[facility] Reason for Visit (unrecogniz ed [...] (HCC) Procedures . Cindi Salas MD [address] [facility] [address] [place] [address] Referral ID Status Reason Start Date Expiration Date Visits Re quested Visits Authorized [id number] 1 1 Reason Comments Derm Problem Sore on chin, states has been there for years, she has a hard time not touching it, painful Reason Comments Patient Update Reason Onset Date Comments Transition Of Care 11/24/2023 [facility] Pharmacy- Hospital discharge 11/23/23 Reason Comments Transition Of Care Reason Comments Appointment Patient Update Reason Comments ER F/U [facility] multiple times f rom 10/2023-11/3023: abdominal pain, cirrhosis of liver, ascites Reason Onset Date Comments Refill Request 01/19/2024 Reason Comments Same Day Appointment chin sore x 1 month and left foot sores x 4 days Reason Comments Hematuria Reason Comments Rash Chin /left foot Reason Onset Date Comments Transition Of Care 04/17/2024 [facility] D/C 2023 Reason Comments Transition Of Care [facility] Reason Comments Medication Question Reason Comments Urinary Frequency nausea x 2 days, sor e on chin x 2 days, cuts between toes from new flipflops Reason Comments Results Urine Cx mixed Reason Comments ER F/U Specialty Diagnoses / Procedures Referred By Marivel cao Referred To Contact CT IMAGING Diagnoses Diarrhea, unspecified type Procedures CT ABD/PEL W IVCON CT ABD & PELVIS W/CONTRAST Claribel Lagunas, HIRO.TRAVELING PASSENGER AGENT [address] [place] [address] [place] [address] Referral ID Status Reason Start Date Expiration Date Visits Requested Visits Authorized [id number] Pending Review Auto-Genera mary Referral Patient Cleared - Admin/Chair man/Directo r advise to proceed or did not respond 05/10/2024 06/09/2025 4 2 Reason Comments Multiple Health Concerns Reason Comments Lost medications 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[facility] Reason 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 Date Comments [facility] Hepatology - Follow-up 05/31/2024 HCV+ lab test Reason Comments Swelling Reason Comments Swelling abdomen Reason Comments Transfer Report Specialty Diagnoses / Procedures Referred By Contac t Referred To Contact Radiology Diagnoses Ascites Procedures Surgical Case Request: Paracentesis, Ultrasound Guidance [place] ABDOM PARACENTESIS DX/THER W/IMAGING GUIDANCE Minda Gómez MD [address] [place] [address] [facility] [address] [place] [address] Referral ID Status Reason Start Date Expiration Date V isits Requested Visits Authorized [id number] New Request 07/17/2024 07/17/2025 1 1 Reason Comments Abdominal Pain Swelling Specialty Diagnoses / Procedures Referred By Contac t Referred To Contact Radiology Diagnoses Ascites Procedures Surgical Case Request: Paracentesis, Ultrasound Guidance [place] ABDOM PARACENTESIS DX/THER W/IMAGING GUIDANCE Ginger Milton MD [address] [place] [address] [place] [address] [facility] [address] [place] [address] [place] [address] Referral ID Status Reason Start Date Expiration Date V isits Requested Visits Authorized [id number] New Request 07/26/2024 07/26/2025 1 1 Referral ID Status Reason Start Date Expiration Date V isits Requested Visits Authorized [id number] New Request 08/02/2024 08/02/2025 1 1 Specialty Diagnoses / Procedures Referred By Contac t Referred To Contact Radiology Diagnoses Ascites Procedures Surgical Case Request: Paracentesis, Ultrasound Office Visit [place] ABDOM PARACENTESIS DX/THER W/IMAGING GUIDANCE Ginger Milton MD [address] [place] [address] [place] [address] Referral ID Status Reason Start Date Expiration Date V isits Requested Visits Authorized [id number] New Request 08/13/2024 08/13/2025 1 1 Specialty Diagnoses / Procedures Referred By Contac t Referred To Contact Radiology Diagnoses Ascites Procedures Surgical Case Request: Paracentesis, Ultrasound Guidance [place] ABDOM PARACENTESIS DX/THER W/IMAGING GUIDANCE Max Rico MD [address] [place] [address] [place] [address] [place] [address] Referral ID Status Reason Start Date Expiration Date V isits Requested Visits Authorized [id number] New Request 08/16/2024 08/16/2025 1 1 Referral ID Status Reason Start Date Expiration Date V isits Requested Visits Authorized [id number] New Request 08/16/2024 08/16/2025 1 1 Referral ID Status Reason Start Date Expiration Date V isits Requested Visits Authorized [id number] New Request 09/11/2024 09/11/2025 1 1 Referral ID Status Reason Start Date Expiration Date V isits Requested Visits Authorized [id number] New Request 09/11/2024 09/11/2025 1 1 Referral ID Status Reason Start Date Expiration Date V isits Requested Visits Authorized [id number] New Request 09/20/2024 09/20/2025 1 1 Reason Comments General Illness Referral ID Status Reason Start Date Expiration Date V isits Requested Visits Authorized [id number] New Request 09/20/2024 09/20/2025 1 1 Reason Comments Abdominal Pain Referral ID Status Reason Start Date Expiration Date V isits Requested Visits Authorized [id number] New Request 10/15/2024 10/15/2025 1 1 Referral ID Status Reason Start Date Expiration Date V isits Requested Visits Authorized [id number] New Request 10/19/2024 10/19/2025 1 1 Reason Comments Shortness of Breath Referral ID Status Reason Start Date Expiration Date V isits Requested Visits Authorized [id number] New Request 11/21/2024 11/21/2025 1 1 Referral ID Status Reason Start Date Expiration Date V isits Requested Visits Authorized [id number] New Request 11/29/2024 11/29/2025 1 1 Reason Comments Transfer Report Transfer from [facility] fo r back pain /abd pain Specialty Diagnoses / Procedures Referred By Contac t Referred To Contact Diagnoses Abdominal pain, r/o peritonitis Referral ID Status Reason Start Date Expiration Date Visits Re quested Visits Authorized [id number] 1 1 Specialty Diagnoses / Procedures Referred By Contac t Referred To Contact Radiology Diagnoses Visit for screening mammogram Procedures Mammo Screening (3D) Bilateral Referral, Self [address] [place] [address] [facility] Mammography [address] [place] [phone] Referral ID Status Reason Start Date Expiration Date Visits Re quested Visits Authorized [id number] Closed 08/16/2024 08/16/2025 1 1 Reason Comments Nail Fungus New Care Teams (unrecognized sec tion and content) Rigging Man Relationship Specialty Start Date End Date Dacia Acosta MD [address] [place], [place] [id number] PCP - General Family Practice 08/24/10 Rigging Man Relationship Specialty Start Date End Date Dacia Acosta MD [address] [place], [place] [id number] [phone] PCP - General Family Practice 08/24/10 Rigging Man Relationship Specialty Start Date End Date Dacia Acosta MD [address] [place], [place] [id number] PCP - General Family Practice 08/24/10 Rigging Man Relationship Specialty Start Date End Date Dacia Acosta MD [address] [place] [address] PCP - General Family Practice 08/24/10 Rigging Man Relationship Specialty Start Date End Date Dacia Acosta MD [address] [facility] [place] [address] PCP - General Family Practice 08/24/10 Rigging Man Relationship Specialty Start Date End Date Dacia Acosta MD [address] [facility] [place] [address] PCP - General Family Practice 08/24/10 Rigging Man Relationship Specialty Start Date End Date Dacia Acosta MD [address] [facility] [place] [address] PCP - General Family Practice 08/24/10 Rigging Man Relationship Specialty Start Date End Date Dacia Acosta MD [address] [facility] [place] [address] PCP - General Family Practice 08/24/10 Rigging Man Relationship Specialty Start Date End Date Dacia Acosta MD [address] [facility] [place] [address] PCP - General Family Practice 08/24/10 Rigging Man Relationship Specialty Start Date End Date Dacia Acosta MD [address] [facility] [place] [address] PCP - General Family Practice 08/24/10 Rigging Man Relationship Specialty Start Date End Date Dacia Acosta MD [address] [facility] [place] [address] PCP - General Family Medicine 08/24/10 Rigging Man Relationship Specialty Start Date End Date Dacia Acosta MD [address] [facility] [place] [address] PCP - General Family Medicine 08/24/10 Rigging Man Relationship Specialty Start Date End Date Dacia Acosta MD [address] [facility] [place] [address] PCP - General Family Medicine 08/24/10 Rigging Man Relationship Specialty Start Date End Date Dacia Acosta MD [address] [place] [address] PCP - General Family Medicine 08/24/10 Rigging Man Relationship Specialty Start Date End Date Dacia Acosta MD [address] [place] [address] PCP - General Family Medicine 08/24/10 Rigging Man Relationship Specialty Start Date End Date Dacia Acosta MD [address] [place] [address] PCP - General Family Medicine 08/24/10 Rigging Man Relationship Specialty Start Date End Date Dacia Acosta MD [address] [place] [address] PCP - General Family Medicine 08/24/10 Team [...] Provider, Attending Pro vider Active Dr. Marcelina Foster , DO Other Provider Active Team Status: Active Member Role Status Dates Dr. Dacia Acosta MD Primary Care Provider Active Dr. Darius Rosales , DO Emergency Provider Active Dr. Gurinder Mittal MD Admit Provider, Other Provide r Active Dr. Marcelina Foster , DO Other Provider Active Dr. Michi Forbes , DO Other Provider Active CONCHIS Rico Attending Provider Active Team Status: Active Member Role Status Dates Dr. Dacia Acosta MD Primary Care Provider Active Dr. Darius Rosales DO Emergency Provider Active Dr. Gurinder Mittal MD Admit Provider, Other Provide r Active Dr. Marcelina Foster , DO Other Provider Active Dr. Michi Forbes DO Attending Provider, Other Provid er Active Team Status: Inactive Member Role Status Dates Dr. Dacia Acosta MD Primary Care Provider Active Dr. Darius Rosales DO Emergency Provider Active Dr. Gurinder Mittal MD Admit Provider, Other Provide r Active Dr. Marcelina Foster , DO Other Provider Active Dr. Michi Forbes DO Attending Provider Active Rigging Man Relationship Specialty Start Date End Date Dacia Acosta MD [address] [place] [address] PCP - General Family Medicine 08/24/10 Team Status: Inactive Member Role Status Dates Dr. Dacia Acosta MD Primary Care Provider, Referr ing Provider Active Dr. Son Adams MD Attending Provider Active Team Status: Active Member Role Status Dates Dr. Dacia Acosta MD Primary Care Provider Active Dr. Son Adams MD Referring Provider, Other Provi jason Active Dr. Marcelina Foster , Other Provider Active CONCHIS Rico Attending Provider Active Team Status: Inactive Member Role Status Dates Dr. Dacia Acosta MD Primary Care Provider Active Dr. Son Adams MD Attending Provider, Referring P rovider Active Dr. Marcelina Foster DO Other Provider Active Team Status: Active [...] Dr. Oscar Pantoja MD Attending Provider Active Rigging Man Relationship Specialty Start Date End Date Dacia Acosta MD [address] [place] [address] PCP - General Family Medicine 08/24/10 Rigging Man Relationship Specialty Start Date End Date Dacia Acosta MD [address] [place] [address] PCP - General Family Medicine 08/24/10 Team Status: Inactive Member Role Status Dates Dr. Dacia Acosta MD Primary Care Provider Active Dr. Jake Harding MD Emergency Provider Active Rigging Man Relationship Specialty Start Date End Date Dacia Acosta MD [address] [place] [address] PCP - General Family Medicine 08/24/10 Team Status: Inactive Member Role Status Dates Dr. Dacia Acosta MD Primary Care Provider Active Dr. Yimi Hutchinson DO Emergency Provider Active Team Status: Inactive Member Role Status Dates Dr. Dacia Acosta MD Primary Care Provider Active Dr. Timoteo Gardiner MD Emergency Provider Active Rigging Man Relationship Specialty Start Date End Date Dacia Acosta MD [address] [place] [address] PCP - General Family Medicine 08/24/10 Priscilla Del Angel, RN [address] [place] [address] Primary Care Human Resource Professional Internal Medicine 11/24/23 Rigging Man Relationship Specialty Start Date End Date Dacia Acosta MD [address] [place] [address] PCP - General Family Medicine 08/24/10 Priscilla Del Angel RN [address] [place] [address] Primary Care Human Resource Professional Internal Medicine 11/24/23 Rigging Man Relationship Specialty Start Date End Date Dacia Acosta MD [address] [place] [address] PCP - General Family Medicine 08/24/10 Priscilla Del Angel RN [address] [place] [address] Primary Care Human Resource Professional Internal Medicine 11/24/23 Rigging Man Relationship Specialty Start Date End Date Dacia Acosta MD [address] [place] [address] PCP - General Family Medicine 08/24/10 Priscilla Del Angel RN [address] [place] [address] Primary Care Human Resource Professional Internal Medicine 11/24/23 Team Status: Inactive Member [...] Dr. Son Adams MD Other Provider Active CONCHIS Rico Attending Provider Active Team Status: Active Member [...] Adams MD Other Provider Active Dr. Marcelina Foster DO Attending Provider Active Team Status: Active [...] Pollack DPM Other Provider Active Dr. Marcelina Foster DO Attending Provider Active Team Status: Inactive Member Role Status Dates Dr. Dacia Acosta MD Primary Care Provider Active Dr. Emperatriz Craig MD Emergency Provider Active Dr. Sowmya Mirza MD Admit Provider, Other Provider Active Dr. Son Adams MD Attending Provider Active Dr. Ricardo Pollack DPM Other Provider Active Rigging Man Relationship Specialty Start Date End Date Dacia Acosta MD [address] [place], [place] [address] PCP - General Family Medicine 08/24/10 Priscilla Del Angel, RN [address] [place] [address] Primary Care Human Resource Professional Internal Medicine 11/24/23 12/07/23 Rigging Man Relationship Specialty Start Date End Date Dacia Acosta MD [address] [place] [address] PCP - General Family Medicine 08/24/10 Rigging Man Relationship Specialty Start Date End Date Dacia Acosta MD [address] [place], [place] [address] PCP - General Family Medicine 08/24/10 Team Status: Active Member Role Status Dates Dr. Dacia Acosta MD Primary Care Provider Active Dr. Emperatriz Craig MD Emergency Provider Active Dr. Sowmya Mirza MD Admit Provider, Other Provider Active Dr. Son Adams MD Referring Provider, Other Provi jason Active Dr. Marcelina Foster DO Attending Provider Active Team Status: Active Member Role Status Dates Dr. Dacia Acosta MD Primary Care Provider Active Dr. Emperatriz Craig MD Emergency Provider Active Dr. Sowmya Mirza MD Admit Provider, Other Provider Active Dr. Son Adams MD Referring Provider, Other Provi jason Active Dr. Ricardo Pollack DPM Other Provider Active Dr. Marcelina Foster DO Attending Provider Active Team Status: Active Member Role Status Dates Dr. Dacia Acosta MD Primary Care Provider, Referr ing Provider Active Dr. Marcelina Foster DO Attending Provider, Other Prov ider Active Team Status: Inactive Member Role Status Dates Dr. Dacia Acosta MD Primary Care Provider, Referr ing Provider Active Dr. Marcelina Foster DO Attending Provider Active Rigging Man Relationship Specialty Start Date End Date Dacia Acosta MD [address] [place] [address] PCP - General Family Medicine 08/24/10 Rigging Man Relationship Specialty Start Date End Date Dacia Acosta MD [address] [facility] [place] [place] [address] PCP - General Family Medicine 08/24/10 Rigging Man Relationship Specialty Start Date End Date Dacia Acosta MD [address] [facility] [place] [address] PCP - General Family Medicine 08/24/10 Rigging Man Relationship Specialty Start Date End Date Dacia Acosta MD [address] [facility] [place] [address] PCP - General Family Medicine 08/24/10 Rigging Man Relationship Specialty Start Date End Date Dacia Acosta MD [address] [facility] [place] [address] PCP - General Family Medicine 08/24/10 Rigging Man Relationship Specialty Start Date End Date Dacia Acosta MD [address] [facility] [place] [address] PCP - General Family Medicine 08/24/10 Rigging Man Relationship Specialty Start Date End Date Dacia Acosta MD [address] [facility] [place] [address] PCP - General Family Medicine 08/24/10 Rigging Man Relationship Specialty Start Date End Date Dacia Acosta MD [address] [facility] [place] [address] PCP - General Family Medicine 08/24/10 Rigging Man Relationship Specialty Start Date End Date Dacia Acosta MD [address] [facility] [place] [address] PCP - General Family Medicine 08/24/10 Rigging Man Relationship Specialty Start Date End Date Dacia Acosta MD [address] [facility] [place] [address] PCP - General Family Medicine 08/24/10 Rigging Man Relationship Specialty Start Date End Date Dacia Acosta MD [address] [facility] [place] [address] PCP - General Family Medicine 08/24/10 Rigging Man Relationship Specialty Start Date End Date Dacia Acosta MD [address] [facility] [place] [address] PCP - General Family Medicine 08/24/10 Rigging Man Relationship Specialty Start Date End Date Dacia Acosta MD [address] [facility] [place] [address] PCP - General Family Medicine 08/24/10 Rigging Man Relationship Specialty Start Date End Date Dacia Acosta MD [address] [facility] [place] [address] PCP - General Family Medicine 08/24/10 Rigging Man Relationship Specialty Start Date End Date Dacia Acosta MD [address] [facility] [place] [address] PCP - General Family Medicine 08/24/10 Rigging Man Relationship Specialty Start Date End Date Dacia Acosta MD [address] [facility] [place] [address] PCP - General Family Medicine 08/24/10 Rigging Man Relationship Specialty Start Date End Date Katharina Welsh MD [address] [facility] [place] [address] Gastroenterology 07/25/24 Rigging Man Relationship Specialty Start Date End Date Katharina Welsh MD [address] [facility] [place] [address] Gastroenterology 07/25/24 Rigging Man Relationship Specialty Start Date End Date Katharina Welsh MD [address] [facility] [place] [address] Gastroenterology 07/25/24 Rigging Man Relationship Specialty Start Date End Date Katharina Welsh MD [address] [facility] [place] [address] Gastroenterology 07/25/24 Rigging Man Relationship Specialty Start Date End Date Katharina Welsh MD [address] [facility] [place] [address] Gastroenterology 07/25/24 Rigging Man Relationship Specialty Start Date End Date Katharina Welsh MD [address] [facility] [place] [address] Gastroenterology 07/25/24 Rigging Man Relationship Specialty Start Date End Date Katharina Welsh MD [address] [facility] [place] [address] Gastroenterology 07/25/24 Rigging Man Relationship Specialty Start Date End Date Katharina Welsh MD [address] [place] [address] [address] [place] [address] Gastroenterology 07/25/24 Sarahi Gross APRN [address] [place] [address] [place] [address] Gastroenterology 09/20/24 Rigging Man Relationship Specialty Start Date End Date Katharina Welsh MD [address] [place] [address] Gastroenterology 07/25/24 Sarahi Gross APRN [address] [place] [address] Gastroenterology 09/20/24 Rigging Man Relationship Specialty [place] [address] [place] [address] PCP - General Family Medicine 09/27/24 Katharina Welsh MD [address] [place] [address] Gastroenterology 07/25/24 Sarahi Gross APRN [address] [place] [address] Gastroenterology 09/20/24 Rigging Man Relationship Specialty [place] [address] [place] [address] PCP - General Family Medicine 09/27/24 Katharina Welsh MD [address] [place] [address] [address] [place] [address] Gastroenterology 07/25/24 Sarahi Gross APRN [address] [place] [address] [place] [address] Gastroenterology 09/20/24 Rigging Man Relationship Specialty Start Date End Date Ange Espinoza DO [address] [place] [address] PCP - General Family Medicine 09/27/24 Katharina Welsh MD [address] [place] [address] Gastroenterology 07/25/24 Sarahi Gross APRN [address] [place] [address] Gastroenterology 09/20/24 Rigging Man Relationship Specialty Start Date End Date Katharina Lopez APRN PCP - General Adult Health 08/15/24 03/25/25 Rigging Man Relationship Specialty Start Date End Date Ange Espinoza DO [address] [place] [address] PCP - General Family Medicine 09/27/24 Katharina Welsh MD [address] [place] [address] Gastroenterology 07/25/24 Sarahi Gross APRN [address] [place] [address] Gastroenterology 09/20/24 Rigging Man Relationship Specialty Start Date End Date Ange Espinoza DO [address] [place] [address] PCP - General Family Medicine 09/27/24 Katharina Welsh MD [address] [place] [address] Gastroenterology 07/25/24 Sarahi Gross APRN [address] [place], [place] [address] Gastroenterology 09/20/24 Rigging Man Relationship Specialty Start Date End Date Ange Espinoza DO [address] [place] [address] PCP - General Family Medicine 09/27/24 Katharina Welsh MD [address] [place] [address] Gastroenterology 07/25/24 Sarahi Gross APRN [address] [place] [address] Gastroenterology 09/20/24 Rigging Man Relationship Specialty Start Date End Date Ange Espinoza DO [address] [place] [address] PCP - General Family Medicine 09/27/24 Katharina Welsh MD [address] [place] [address] Gastroenterology 07/25/24 Sarahi Gross APRN [address] [place] [address] Gastroenterology 09/20/24 Rigging Man Relationship Specialty Start Date End Date Alexis AngeDO [address] [place] [address] PCP - General Family Medicine 09/27/24 Katharina Welsh MD [address] [place] [address] Gastroenterology 07/25/24 Sarahi Gross APRN [address] [place] [address] Gastroenterology 09/20/24 Rigging Man Relationship Specialty Start Date End Date Michelle EspinozaeDO [address] [place] [address] PCP - General Family Medicine 09/27/24 Katharina Welsh MD [address] [place] [address] Gastroenterology 07/25/24 Sarahi Gross APRN [address] [place] [address] Gastroenterology 09/20/24 Team Status: Active Member Role Status Dates [facility] Primary Care Provider A ctive Team Status: Inactive Member Role Status Dates [facility] Primary Care Provider A ctive Start: January 23, 2025 End: January 23, 2025 [facility] Referring Provider Acti ve Start: January 23, 2025 End: January 23, 2025 Dr. Son Adams MD Attending Provider Active Start: January 23, 2025 End: January 23, 2025 Team Status: Inactive Member Role Status Dates [facility] Primary Care Provider A ctive Start: February 04, 2025 End: February 04, 2025 Dr. Michi Cope , Emergency Provider Active Start: February 04, 2025 End: February 04, 2025 Team Status: Active Member Role Status Dates Tresa Sandoval NP-C Primary Care Provider Active Team Status: Inactive Member Role Status Dates [facility] Primary Care Provider A ctive Start: February 04, 2025 End: February 04, 2025 Dr. Michi Cope DO Attending Provider Active Start: February 04, 2025 End: February 04, 2025 Dr. Michi Cope DO Emergency Provider Active Start: February 04, 2025 End: February 04, 2025 Team Status: Active Member Role Status Dates RADHA VictoriaC Primary Care Provider Active Start: February 07, 2025 CONCHIS Victoria Attending Provider Active Start: February 07, 2025 Team Status: Inactive Member Role Status Dates CONCHIS Victoria Primary Care Provider Active Start: February 08, 2025 End: February 08, 2025 Dr. Chris Ramos MD Emergency Provider Active Start: February 08, 2025 End: February 08, 2025 Team Status: Inactive Member Role Status Dates Tresa Sandoval NP-C Primary Care Provider Active Start: February 07, 2025 End: February 07, 2025 CONCHIS Victoria Attending Provider Active Start: February 07, 2025 End: February 07, 2025 Team Status: Inactive Member Role Status Dates RADHA VictoriaC Primary Care Provider Active Start: February 08, 2025 End: February 08, 2025 Dr. Chris Ramos MD Attending Provider Active Start: February 08, 2025 End: February 08, 2025 Dr. Chris Ramos MD Emergency Provider Active Start: February 08, 2025 End: February 08, 2025 Team Status: Inactive Member Role Status Dates Tresa Tannhof , CENTRIFUGAL CASTING MACHINE OPERATOR-C Primary Care Provider Active Start: February 21, 2025 End: February 22, 2025 Dr. Pedrito Rosario DO Emergency Provider Active Start : February 21, 2025 End: February 22, 2025 Team Status: Inactive Member Role Status Dates Tresa Sandoval , CENTRIFUGAL CASTING MACHINE OPERATOR-C Primary Care Provider Active Start: February 26, 2025 End: February 26, 2025 Tresa Sandoval CENTRIFUGAL CASTING MACHINE OPERATOR-C Attending Provider Active Start: February 26, 2025 End: February 26, 2025 Team Status: Inactive Member Role Status Dates Tresa Sandoval , CENTRIFUGAL CASTING MACHINE OPERATOR-C Primary Care Provider Active Start: February 26, 2025 End: February 26, 2025 Dr. Brock Ruiz DO Emergency Provider Activ e Start: February 26, 2025 End: February 26, 2025 Team Status: Active Member Role Status Dates Tresa Sandoval , CENTRIFUGAL CASTING MACHINE OPERATOR-C Primary Care Provider Active Start: February 26, 2025 Tresa Sandoval CENTRIFUGAL CASTING MACHINE OPERATOR-C Attending Provider Active Start: February 26, 2025 Team Status: Active Member Role Status Dates Zebulutimothy Beam VSC, CENTRIFUGAL CASTING MACHINE OPERATOR-C Primary Care Provider Active Team Status: Inactive Member Role Status Dates Tresa Sandoval CENTRIFUGAL CASTING MACHINE OPERATOR-C Primary Care Provider Active Start: February 26, 2025 End: February 26, 2025 Dr. Brock Ruiz DO Attending Provider Activ e Start: February 26, 2025 End: February 26, 2025 Dr. Brock Ruiz DO Emergency Provider Activ e Start: February 26, 2025 End: February 26, 2025 Team Status: Inactive Member Role Status Dates Dr. Shon Quintero MD Attending Provider Active Sta rt: March 07, 2025 End: March 07, 2025 Dr. Shon Quintero MD Referring Provider Active Sta rt: March 07, 2025 End: March 07, 2025 Dr. Son Adams MD Primary Care Provider Active Start: March 07, 2025 End: March 07, 2025 Team Status: Inactive Member Role Status Dates Dr. Marcelina Foster DO Attending Provider Active Start: March 15, 2025 End: March 15, 2025 Zebulun Beam VSC, CENTRIFUGAL CASTING MACHINE OPERATOR-C Primary Care Provider Active Start: March 15, 2025 End: March 15, 2025 Zebulun Beam VSC, CENTRIFUGAL CASTING MACHINE OPERATOR-C Referring Provider Active Start: March 15, 2025 End: March 15, 2025 Team Status: Active Member Role Status Dates Dr. Marcelina Foster DO Attending Provider Active Start: March 15, 2025 Dr. Marcelina Foster DO Other Provider Active St art: March 15, 2025 Zebulun Beam VSC, CENTRIFUGAL CASTING MACHINE OPERATOR-C Primary Care Provider Active Start: March 15, 2025 Zebulun Beam VSC, CENTRIFUGAL CASTING MACHINE OPERATOR-C Referring Provider Active Start: March 15, 2025 Team Status: Active Member Role/Relationship Status Dates Zebun Beam VSC, CENTRIFUGAL CASTING MACHINE OPERATOR-C Primary Care Provider Active Team Status: Inactive Member Role/Relationship Status Dates [facility] Primary Care Provider A ctive Start: January 23, 2025 End: January 23, 2025 [facility] Referring Provider Acti ve Start: January 23, 2025 End: January 23, 2025 Dr. Son Adams MD Attending Provider Active Start: January 23, 2025 End: January 23, 2025 Team Status: Inactive Member Role/Relationship Status Dates [facility] Primary Care Provider A ctive Start: February 04, 2025 End: February 04, 2025 Dr. Michi Cope DO Attending Provider Active Start: February 04, 2025 End: February 04, 2025 Dr. Michi Cope DO Emergency Provider Active Start: February 04, 2025 End: February 04, 2025 Team Status: Inactive Member Role/Relationship Status Dates Tresa Sandoval NP-C Primary Care Provider Active Start: February 07, 2025 End: February 07, 2025 CONCHIS Victoria Attending Provider Active Start: February 07, 2025 End: February 07, 2025 Team Status: Inactive Member Role/Relationship Status Dates CONCHIS Victoria Primary Care Provider Active Start: February 08, 2025 End: February 08, 2025 Dr. Chris Ramos MD Attending Provider Active Start: February 08, 2025 End: February 08, 2025 Dr. Chris Ramos MD Emergency Provider Active Start: February 08, 2025 End: February 08, 2025 Team Status: Inactive Member Role/Relationship Status Dates Tresa Tannhof , CENTRIFUGAL CASTING MACHINE OPERATOR-C Primary Care Provider Active Start: February 21, 2025 End: February 22, 2025 Dr. Pedrito Rosario DO Emergency Provider Active Start : February 21, 2025 End: February 22, 2025 Team Status: Inactive Member Role/Relationship Status Dates Tresa Sandoval , CENTRIFUGAL CASTING MACHINE OPERATOR-C Primary Care Provider Active Start: February 26, 2025 End: February 26, 2025 Tresa Sandoval , CENTRIFUGAL CASTING MACHINE OPERATOR-C Attending Provider Active Start: February 26, 2025 End: February 26, 2025 Team Status: Inactive Member Role/Relationship Status Dates Tresa Sandoval , CENTRIFUGAL CASTING MACHINE OPERATOR-C Primary Care Provider Active Start: February 26, 2025 End: February 26, 2025 Dr. Brock Ruiz DO Attending Provider Activ e Start: February 26, 2025 End: February 26, 2025 Dr. Brock Ruiz DO Emergency Provider Activ e Start: February 26, 2025 End: February 26, 2025 Team Status: Inactive Member Role/Relationship Status Dates Dr. Shon Quintero MD Attending Provider Active Sta rt: March 07, 2025 End: March 07, 2025 Dr. Shon Quintero MD Referring Provider Active Sta rt: March 07, 2025 End: March 07, 2025 Dr. Son Adams MD Primary Care Provider Active Start: March 07, 2025 End: March 07, 2025 Team Status: Inactive Member Role/Relationship Status Dates Dr. Marcelina Foster DO Attending Provider Active Start: March 15, 2025 End: March 15, 2025 Zebulun Beam VSC, CENTRIFUGAL CASTING MACHINE OPERATOR-C Primary Care Provider Active Start: March 15, 2025 End: March 15, 2025 Zebulun Beam VSC, CENTRIFUGAL CASTING MACHINE OPERATOR-C Referring Provider Active Start: March 15, 2025 End: March 15, 2025 Team Status: Active Member Role/Relationship Status Dates Dr. Marcelina Foster DO Attending Provider Active Start: March 15, 2025 Dr. Marcelina Foster DO Other Provider Active St art: March 15, 2025 Zebulun Beam VSC, CENTRIFUGAL CASTING MACHINE OPERATOR-C Primary Care Provider Active Start: March 15, 2025 Zebulun Beam VSC, CENTRIFUGAL CASTING MACHINE OPERATOR-C Referring Provider Active Start: March 15, 2025 Team Status: Inactive Member Role/Relationship Status Dates Zebulun Beam VSC, CENTRIFUGAL CASTING MACHINE OPERATOR-C Primary Care Provider Active Start: March 27, 2025 End: March 27, 2025 Zebulun Beam VSC, CENTRIFUGAL CASTING MACHINE OPERATOR-C Attending Provider Active Start: March 27, 2025 End: March 27, 2025 Zebulun Beam VSC, CENTRIFUGAL CASTING MACHINE OPERATOR-C Referring Provider Active Start: March 27, 2025 End: March 27, 2025 Team Status: Inactive Member Role/Relationship Status Dates Zebulun Beam VSC, CENTRIFUGAL CASTING MACHINE OPERATOR-C Primary Care Provider Active Start: April 04, 2025 End: April 04, 2025 Zebulun Beam VSC, CENTRIFUGAL CASTING MACHINE OPERATOR-C Attending Provider Active Start: April 04, 2025 End: April 04, 2025 Zebulun Beam VSC, CENTRIFUGAL CASTING MACHINE OPERATOR-C Referring Provider Active Start: April 04, 2025 End: April 04, 2025 Team Status: Inactive Member Role/Relationship Status Dates Tresa Sandoval , CENTRIFUGAL CASTING MACHINE OPERATOR-C Primary Care Provider Active Start: February 21, 2025 End: February 22, 2025 Dr. Pedrito Rosario DO Attending Provider Active Start : February 21, 2025 End: February 22, 2025 Dr. Pedrito Rosario , Emergency Provider Active Start : February 21, 2025 End: February 22, 2025 Team Status: Active Member Role/Relationship Status Dates Zebulun Beam VSC, CENTRIFUGAL CASTING MACHINE OPERATOR-C Primary Care Provider Active Start: April 04, 2025 End: April 04, 2025 Zebulun Beam VSC, CENTRIFUGAL CASTING MACHINE OPERATOR-C Referring Provider Active Start: April 04, 2025 End: April 04, 2025 Dr. Azam Schneider MD Attending Provider Active S tart: April 04, 2025 End: April 04, 2025 Team Status: Inactive Member Role/Relationship Status Dates Zebulun Beam VSC, CENTRIFUGAL CASTING MACHINE OPERATOR-C Primary Care Provider Active Start: May 07, 2025 End: May 07, 2025 Zebulun Beam VSC, CENTRIFUGAL CASTING MACHINE OPERATOR-C Attending Provider Active Start: May 07, 2025 End: May 07, 2025 Zebulun Beam VSC, CENTRIFUGAL CASTING MACHINE OPERATOR-C Referring Provider Active Start: May 07, 2025 End: May 07, 2025 Team Status: Inactive Member Role/Relationship Status Dates [facility] Referring Provider Acti ve Start: May 15, 2025 End: May 15, 2025 Dr. Son Adams MD Attending Provider Active Start: May 15, 2025 End: May 15, 2025 Eyad Saeed Nuvia, CENTRIFUGAL CASTING MACHINE OPERATOR-C Primary Care Provider Active Start: May 15, 2025 End: May 15, 2025 Team Status: Inactive Member Role/Relationship Status Dates [facility] Primary Care Provider A ctive Start: February 04, 2025 End: February 04, 2025 Dr. Michi Cope DO Attending Provider Active Start: February 04, 2025 End: February 04, 2025 Dr. Michi Cope DO Emergency Provider Active Start: February 04, 2025 End: February 04, 2025 Team Status: Inactive Member Role/Relationship Status Dates Tresa Sandoval CENTRIFUGAL CASTING MACHINE OPERATOR-C Primary Care Provider Active Start: February 07, 2025 End: February 07, 2025 Tresa Sandoval NP-C Attending Provider Active Start: February 07, 2025 End: February 07, 2025 Team Status: Inactive Member Role/Relationship Status Dates Tresa Sandoval CENTRIFUGAL CASTING MACHINE OPERATOR-C Primary Care Provider Active Start: February 08, 2025 End: February 08, 2025 Dr. Chris Ramos MD Attending Provider Active Start: February 08, 2025 End: February 08, 2025 Dr. Chris Ramos MD Emergency Provider Active Start: February 08, 2025 End: February 08, 2025 Team Status: Inactive Member Role/Relationship Status Dates Tresa Sandoval CENTRIFUGAL CASTING MACHINE OPERATOR-C Primary Care Provider Active Start: February 21, 2025 End: February 22, 2025 Dr. Pedrito Rosario DO Attending Provider Active Start : February 21, 2025 End: February 22, 2025 Dr. Pedrito Rosario DO Emergency Provider Active Start : February 21, 2025 End: February 22, 2025 Team Status: Inactive Member Role/Relationship Status Dates Tresa Sandoval CENTRIFUGAL CASTING MACHINE OPERATOR-C Primary Care Provider Active Start: February 26, 2025 End: February 26, 2025 Tresa Sandoval NP-C Attending Provider Active Start: February 26, 2025 End: February 26, 2025 Team Status: Inactive Member Role/Relationship Status Dates Tresa Sandoval CENTRIFUGAL CASTING MACHINE OPERATOR-C Primary Care Provider Active Start: February 26, 2025 End: February 26, 2025 Dr. Brock Ruiz DO Attending Provider Activ e Start: February 26, 2025 End: February 26, 2025 Dr. Brock Ruiz DO Emergency Provider Activ e Start: February 26, 2025 End: February 26, 2025 Team Status: Inactive Member Role/Relationship Status Dates Dr. Shon Quintero MD Attending Provider Active Sta rt: March 07, 2025 End: March 07, 2025 Dr. Shon Quintero MD Referring Provider Active Sta rt: March 07, 2025 End: March 07, 2025 Dr. Son Adams MD Primary Care Provider Active Start: March 07, 2025 End: March 07, 2025 Team Status: Inactive Member Role/Relationship Status Dates Dr. Marcelina Foster DO Attending Provider Active Start: March 15, 2025 End: March 15, 2025 Zebulun Beam VSC, CENTRIFUGAL CASTING MACHINE OPERATOR-C Primary Care Provider Active Start: March 15, 2025 End: March 15, 2025 Zebulun Beam VSC, CENTRIFUGAL CASTING MACHINE OPERATOR-C Referring Provider Active Start: March 15, 2025 End: March 15, 2025 Team Status: Active Member Role/Relationship Status Dates Dr. Marcelina Foster DO Attending Provider Active Start: March 15, 2025 Dr. Marcelina Foster DO Other Provider Active St art: March 15, 2025 Zebulun Beam VSC, CENTRIFUGAL CASTING MACHINE OPERATOR-C Primary Care Provider Active Start: March 15, 2025 Zebulun Beam VSC, CENTRIFUGAL CASTING MACHINE OPERATOR-C Referring Provider Active Start: March 15, 2025 Team Status: Inactive Member Role/Relationship Status Dates Zebulun Beam VSC, CENTRIFUGAL CASTING MACHINE OPERATOR-C Primary Care Provider Active Start: March 27, 2025 End: March 27, 2025 Zebulun Beam VSC, CENTRIFUGAL CASTING MACHINE OPERATOR-C Attending Provider Active Start: March 27, 2025 End: March 27, 2025 Zebulun Beam VSC, CENTRIFUGAL CASTING MACHINE OPERATOR-C Referring Provider Active Start: March 27, 2025 End: March 27, 2025 Team Status: Inactive Member Role/Relationship Status Dates Zebulun Beam VSC, CENTRIFUGAL CASTING MACHINE OPERATOR-C Primary Care Provider Active Start: April 04, 2025 End: April 04, 2025 Zebulun Beam VSC, CENTRIFUGAL CASTING MACHINE OPERATOR-C Attending Provider Active Start: April 04, 2025 End: April 04, 2025 Zebulun Beam VSC, CENTRIFUGAL CASTING MACHINE OPERATOR-C Referring Provider Active Start: April 04, 2025 End: April 04, 2025 Team Status: Active Member Role/Relationship Status Dates Zebulun Beam VSC, CENTRIFUGAL CASTING MACHINE OPERATOR-C Primary Care Provider Active Start: April 04, 2025 End: April 04, 2025 Zebulun Beam VSC, CENTRIFUGAL CASTING MACHINE OPERATOR-C Referring Provider Active Start: April 04, 2025 End: April 04, 2025 Dr. Azam Schneider MD Attending Provider Active S tart: April 04, 2025 End: April 04, 2025 Team Status: Inactive Member Role/Relationship Status Dates Zebulun Beam VSC, CENTRIFUGAL CASTING MACHINE OPERATOR-C Primary Care Provider Active Start: May 07, 2025 End: May 07, 2025 Zebulun Beam VSC, CENTRIFUGAL CASTING MACHINE OPERATOR-C Attending Provider Active Start: May 07, 2025 End: May 07, 2025 Zebulun Beam VSC, CENTRIFUGAL CASTING MACHINE OPERATOR-C Referring Provider Active Start: May 07, 2025 End: May 07, 2025 Team Status: Inactive Member Role/Relationship Status Dates [facility] Referring Provider Acti ve Start: May 15, 2025 End: May 15, 2025 Dr. Son Adams MD Attending Provider Active Start: May 15, 2025 End: May 15, 2025 Zebulun Beam VSC, CENTRIFUGAL CASTING MACHINE OPERATOR-C Primary Care Provider Active Start: May 15, 2025 End: May 15, 2025 Team Status: Inactive Member Role/Relationship Status Dates Zebulun Beam VSC, CENTRIFUGAL CASTING MACHINE OPERATOR-C Primary Care Provider Active Start: May 20, 2025 End: May 20, 2025 Zebulun Beam VSC, CENTRIFUGAL CASTING MACHINE OPERATOR-C Attending Provider Active Start: May 20, 2025 End: May 20, 2025 Zebulun Beam VSC, CENTRIFUGAL CASTING MACHINE OPERATOR-C Referring Provider Active Start: May 20, 2025 End: May 20, 2025 Team Status: Active Member Role/Relationship Status Dates Zebulun Beam VSC, CENTRIFUGAL CASTING MACHINE OPERATOR-C Primary care physician Active Team Status: Inactive Member Role/Relationship Status Dates Dr. Shon Quintero MD Attending physician Active St art: March 07, 2025 End: March 07, 2025 Dr. Shon Quintero MD Referring Provider Active Sta rt: March 07, 2025 End: March 07, 2025 Dr. Son Adams MD Primary care physician Active Start: March 07, 2025 End: March 07, 2025 Team Status: Inactive Member Role/Relationship Status Dates Dr. Marcelina Foster DO Attending physician Active Start: March 15, 2025 End: March 15, 2025 Zebulun Beam VSC, CENTRIFUGAL CASTING MACHINE OPERATOR-C Primary care physician Active Start: March 15, 2025 End: March 15, 2025 Zebulun Beam VSC, CENTRIFUGAL CASTING MACHINE OPERATOR-C Referring Provider Active Start: March 15, 2025 End: March 15, 2025 Team Status: Active Member Role/Relationship Status Dates Dr. Marcelina Foster DO Attending physician Active Start: March 15, 2025 Dr. Marcelina Foster DO Nurse Practitioner Active Start: March 15, 2025 Zebulun Beam VSC, CENTRIFUGAL CASTING MACHINE OPERATOR-C Primary care physician Active Start: March 15, 2025 Zebulun Beam VSC, CENTRIFUGAL CASTING MACHINE OPERATOR-C Referring Provider Active Start: March 15, 2025 Team Status: Inactive Member Role/Relationship Status Dates Zebulun Beam VSC, CENTRIFUGAL CASTING MACHINE OPERATOR-C Primary care physician Active Start: March 27, 2025 End: March 27, 2025 Zebulun Beam VSC, CENTRIFUGAL CASTING MACHINE OPERATOR-C Attending physician Active Start: March 27, 2025 End: March 27, 2025 Zebulun Beam VSC, CENTRIFUGAL CASTING MACHINE OPERATOR-C Referring Provider Active Start: March 27, 2025 End: March 27, 2025 Team Status: Inactive Member Role/Relationship Status Dates Zebulun Beam VSC, CENTRIFUGAL CASTING MACHINE OPERATOR-C Primary care physician Active Start: April 04, 2025 End: April 04, 2025 Zebulun Beam VSC, CENTRIFUGAL CASTING MACHINE OPERATOR-C Attending physician Active Start: April 04, 2025 End: April 04, 2025 Zebulun Beam VSC, CENTRIFUGAL CASTING MACHINE OPERATOR-C Referring Provider Active Start: April 04, 2025 End: April 04, 2025 Team Status: Active Member Role/Relationship Status Dates Zebulun Beam VSC, CENTRIFUGAL CASTING MACHINE OPERATOR-C Primary care physician Active Start: April 04, 2025 End: April 04, 2025 Zebulun Beam VSC, CENTRIFUGAL CASTING MACHINE OPERATOR-C Referring Provider Active Start: April 04, 2025 End: April 04, 2025 Dr. Azam Schneider MD Attending physician Active Start: April 04, 2025 End: April 04, 2025 Team Status: Inactive Member Role/Relationship Status Dates Zebulun Beam VSC, CENTRIFUGAL CASTING MACHINE OPERATOR-C Primary care physician Active Start: May 07, 2025 End: May 07, 2025 Zebulun Beam VSC, CENTRIFUGAL CASTING MACHINE OPERATOR-C Attending physician Active Start: May 07, 2025 End: May 07, 2025 Zebulun Beam VSC, CENTRIFUGAL CASTING MACHINE OPERATOR-C Referring Provider Active Start: May 07, 2025 End: May 07, 2025 Team Status: Inactive Member Role/Relationship Status Dates [facility] Referring Provider Acti ve Start: May 15, 2025 End: May 15, 2025 Dr. Son Adams MD Attending physician Active Start: May 15, 2025 End: May 15, 2025 Zebulun Beam VSC, CENTRIFUGAL CASTING MACHINE OPERATOR-C Primary care physician Active Start: May 15, 2025 End: May 15, 2025 Team Status: Inactive Member Role/Relationship Status Dates Zebulun Beam VSC, CENTRIFUGAL CASTING MACHINE OPERATOR-C Primary care physician Active Start: May 20, 2025 End: May 20, 2025 Zebulun Beam VSC, CENTRIFUGAL CASTING MACHINE OPERATOR-C Attending physician Active Start: May 20, 2025 End: May 20, 2025 Zebulun Beam VSC, CENTRIFUGAL CASTING MACHINE OPERATOR-C Referring Provider Active Start: May 20, 2025 End: May 20, 2025 Team Status: Inactive Member Role/Relationship Status Dates Zebulun Beam VSC, CENTRIFUGAL CASTING MACHINE OPERATOR-C Primary care physician Active Start: June 26, 2025 End: June 26, 2025 Out of Town Doctor Attending physician Active St art: June 26, 2025 End: June 26, 2025 Team Status: Inactive Member Role/Relationship Status Dates Zebulun Beam VSC, CENTRIFUGAL CASTING MACHINE OPERATOR-C Primary care physician Active Start: March 27, 2025 End: March 27, 2025 Zebulun Beam VSC, CENTRIFUGAL CASTING MACHINE OPERATOR-C Attending physician Active Start: March 27, 2025 End: March 27, 2025 Zebulun Beam VSC, CENTRIFUGAL CASTING MACHINE OPERATOR-C Referring Provider Active Start: March 27, 2025 End: March 27, 2025 Team Status: Inactive Member Role/Relationship Status Dates Zebulun Beam VSC, CENTRIFUGAL CASTING MACHINE OPERATOR-C Primary care physician Active Start: April 04, 2025 End: April 04, 2025 Zebulun Beam VSC, CENTRIFUGAL CASTING MACHINE OPERATOR-C Attending physician Active Start: April 04, 2025 End: April 04, 2025 Zebulun Beam VSC, CENTRIFUGAL CASTING MACHINE OPERATOR-C Referring Provider Active Start: April 04, 2025 End: April 04, 2025 Team Status: Active Member Role/Relationship Status Dates Zebulun Beam VSC, CENTRIFUGAL CASTING MACHINE OPERATOR-C Primary care physician Active Start: April 04, 2025 End: April 04, 2025 Zebulun Beam VSC, CENTRIFUGAL CASTING MACHINE OPERATOR-C Referring Provider Active Start: April 04, 2025 End: April 04, 2025 Dr. Azam Schneider MD Attending physician Active Start: April 04, 2025 End: April 04, 2025 Team Status: Inactive Member Role/Relationship Status Dates Zebulun Beam VSC, CENTRIFUGAL CASTING MACHINE OPERATOR-C Primary care physician Active Start: May 07, 2025 End: May 07, 2025 Zebulun Beam VSC, CENTRIFUGAL CASTING MACHINE OPERATOR-C Attending physician Active Start: May 07, 2025 End: May 07, 2025 Zebulun Beam VSC, CENTRIFUGAL CASTING MACHINE OPERATOR-C Referring Provider Active Start: May 07, 2025 End: May 07, 2025 Team Status: Inactive Member Role/Relationship Status Dates [facility] Referring Provider Acti ve Start: May 15, 2025 End: May 15, 2025 Dr. Son Adams MD Attending physician Active Start: May 15, 2025 End: May 15, 2025 Zebulun Beam VSC, CENTRIFUGAL CASTING MACHINE OPERATOR-C Primary care physician Active Start: May 15, 2025 End: May 15, 2025 Team Status: Inactive Member Role/Relationship Status Dates Zebulun Beam VSC, CENTRIFUGAL CASTING MACHINE OPERATOR-C Primary care physician Active Start: May 20, 2025 End: May 20, 2025 Zebulun Beam VSC, CENTRIFUGAL CASTING MACHINE OPERATOR-C Attending physician Active Start: May 20, 2025 End: May 20, 2025 Zebulun Beam VSC, CENTRIFUGAL CASTING MACHINE OPERATOR-C Referring Provider Active Start: May 20, 2025 End: May 20, 2025 Team Status: Inactive Member Role/Relationship Status Dates Zebulun Beam VSC, CENTRIFUGAL CASTING MACHINE OPERATOR-C Primary care physician Active Start: June 26, 2025 End: June 26, 2025 KASIA ELIAS Attending physician Active Start : June 26, 2025 End: June 26, 2025 Team Status: Inactive Member Role/Relationship Status Dates Zebulun Beam VSC, CENTRIFUGAL CASTING MACHINE OPERATOR-C Primary care physician Active Start: July 11, 2025 End: July 11, 2025 Dr. Brock Ruiz DO Attending physician Active Start: July 11, 2025 End: July 11, 2025 Dr. Brock Ruiz DO Emergency Department Physician Active Start: July 11, 2025 End: July 11, 2025 Team Status: Inactive Member Role/Relationship Status Dates Zebulun Beam VSC, CENTRIFUGAL CASTING MACHINE OPERATOR-C Primary care physician Active Start: July 15, 2025 End: July 15, 2025 Dr[facility] Active Start: July 15, 2025 End: July 15, 2025 Team Status: Inactive Member Role/Relationship Status Dates Zebulun Beam VSC, CENTRIFUGAL CASTING MACHINE OPERATOR-C Primary care physician Active Start: July 16, 2025 End: July 16, 2025 Dr. Son Adams MD Nurse Practitioner Active Start: July 16, 2025 End: July 16, 2025 Dr. Timoteo Gardiner MD Attending physician Active Start: July 16, 2025 End: July 16, 2025 Dr. Timoteo Gardiner MD Referring Provider Active S tart: July 16, 2025 End: July 16, 2025 Team Status: Inactive Member Role/Relationship Status Dates Zebulun Beam VSC, CENTRIFUGAL CASTING MACHINE OPERATOR-C Primary care physician Active Start: April 04, 2025 End: April 04, 2025 Zebulun Beam VSC, CENTRIFUGAL CASTING MACHINE OPERATOR-C Attending physician Active Start: April 04, 2025 End: April 04, 2025 Zebulun Beam VSC, CENTRIFUGAL CASTING MACHINE OPERATOR-C Referring Provider Active Start: April 04, 2025 End: April 04, 2025 Team Status: Active Member Role/Relationship Status Dates Zebulun Beam VSC, CENTRIFUGAL CASTING MACHINE OPERATOR-C Primary care physician Active Start: April 04, 2025 End: April 04, 2025 Zebulun Beam VSC, CENTRIFUGAL CASTING MACHINE OPERATOR-C Referring Provider Active Start: April 04, 2025 End: April 04, 2025 Dr. Azam Schneider MD Attending physician Active Start: April 04, 2025 End: April 04, 2025 Team Status: Inactive Member Role/Relationship Status Dates Zebulun Beam VSC, CENTRIFUGAL CASTING MACHINE OPERATOR-C Primary care physician Active Start: May 07, 2025 End: May 07, 2025 Zebulun Beam VSC, CENTRIFUGAL CASTING MACHINE OPERATOR-C Attending physician Active Start: May 07, 2025 End: May 07, 2025 Zebulun Beam VSC, CENTRIFUGAL CASTING MACHINE OPERATOR-C Referring Provider Active Start: May 07, 2025 End: May 07, 2025 Team Status: Inactive Member Role/Relationship Status Dates [facility] Referring Provider Acti ve Start: May 15, 2025 End: May 15, 2025 Dr. Son Adams MD Attending physician Active Start: May 15, 2025 End: May 15, 2025 Zebulun Beam VSC, CENTRIFUGAL CASTING MACHINE OPERATOR-C Primary care physician Active Start: May 15, 2025 End: May 15, 2025 Team Status: Inactive Member Role/Relationship Status Dates Zebulun Beam VSC, CENTRIFUGAL CASTING MACHINE OPERATOR-C Primary care physician Active Start: May 20, 2025 End: May 20, 2025 Zebulun Beam VSC, CENTRIFUGAL CASTING MACHINE OPERATOR-C Attending physician Active Start: May 20, 2025 End: May 20, 2025 Zebulun Beam VSC, CENTRIFUGAL CASTING MACHINE OPERATOR-C Referring Provider Active Start: May 20, 2025 End: May 20, 2025 Team Status: Inactive Member Role/Relationship Status Dates Zebulun Beam VSC, CENTRIFUGAL CASTING MACHINE OPERATOR-C Primary care physician Active Start: June 26, 2025 End: June 26, 2025 KASIA ELIAS Attending physician Active Start : June 26, 2025 End: June 26, 2025 Team Status: Inactive Member Role/Relationship Status Dates Zebulun Beam VSC, CENTRIFUGAL CASTING MACHINE OPERATOR-C Primary care physician Active Start: July 11, 2025 End: July 11, 2025 Dr. Brock Ruiz DO Attending physician Active Start: July 11, 2025 End: July 11, 2025 Dr. Brock Ruiz DO Emergency Department Physician Active Start: July 11, 2025 End: July 11, 2025 Team Status: Inactive Member Role/Relationship Status Dates Zebulun Beam VSC, CENTRIFUGAL CASTING MACHINE OPERATOR-C Primary care physician Active Start: July 15, 2025 End: July 15, 2025 Dr. Timoteo Gardiner MD Attending physician Active Start: July 15, 2025 End: July 15, 2025 Dr. Timoteo Gardiner MD Emergency Departmen t Physician Active Start: July 15, 2025 End: July 15, 2025 Team Status: Inactive Member Role/Relationship Status Dates Zebulun Beam VSC, CENTRIFUGAL CASTING MACHINE OPERATOR-C Primary care physician Active Start: July 16, 2025 End: July 16, 2025 Dr. Son Adams MD Nurse Practitioner Active Start: July 16, 2025 End: July 16, 2025 Dr. Timoteo Gardiner MD Attending physician Active Start: July 16, 2025 End: July 16, 2025 Dr. Timoteo Gardiner MD Referring Provider Active S tart: July 16, 2025 End: July 16, 2025 Team Status: Inactive Member Role/Relationship Status Dates Zebulun Beam VSC, CENTRIFUGAL CASTING MACHINE OPERATOR-C Primary care physician Active Start: July 25, 2025 End: July 25, 2025 Zebulun Beam VSC, CENTRIFUGAL CASTING MACHINE OPERATOR-C Referring Provider Active Start: July 25, 2025 End: July 25, 2025 JOSE Schmid Attending physician Active Sta rt: July 25, 2025 End: July 25, 2025 Team Status: Inactive Member Role/Relationship Status Dates Zebulun Beam VSC, CENTRIFUGAL CASTING MACHINE OPERATOR-C Primary care physician Active Start: July 25, 2025 End: July 25, 2025 Dr. Ajit Berg MD Attending physician Active Start: July 25, 2025 End: July 25, 2025 Team Status: Inactive Member Role/Relationship Status Dates Zebulun Beam VSC, CENTRIFUGAL CASTING MACHINE OPERATOR-C Primary care physician Active Start: July 25, 2025 End: July 25, 2025 Zebulun Beam VSC, CENTRIFUGAL CASTING MACHINE OPERATOR-C Referring Provider Active Start: July 25, 2025 End: July 25, 2025 Dr. Son Adams MD Attending physician Active Start: July 25, 2025 End: July 25, 2025 Team Status: Inactive Member Role/Relationship Status Dates Zebulun Beam VSC, CENTRIFUGAL CASTING MACHINE OPERATOR-C Primary care physician Active Start: July 25, 2025 End: July 25, 2025 Dr. Son Adams MD Attending physician Active Start: July 25, 2025 End: July 25, 2025 Dr. Son Adams MD Referring Provider Active Start: July 25, 2025 End: July 25, 2025 Goals (unrecognized section and content) Goals [...] alternate section No data available for this sectionGoals may be documented in an alternate sectionGoals may be documented in an alternate section Scheduled Active and Recently Administ ered Medications (unrecognized section and content) Medication Order 09/13/2023 09/14/2023 09/15/2023 desvenlafaxine (Pristiq) 24 hr tablet 100 mg 100 mg, Oral, Daily, First dose on 09/10/23 at 0900, Do not crush, chew, or split. 927 (Given - Provider: Kylah Parks RN) 830 (Given - Provider: Kylah Parks RN) 0945 (Given - Provider: Ricardo Landry, NASH) doxepin (SINEquan) capsule 10 mg 10 mg, Oral, Nightly, First dose on 09/10/23 at 2100 2050 (Given - Provider: Harjit Parsons RN) 2108 (Given - Provider: Haritha Martinez, NASH) gabapentin (Neurontin) capsule 100 mg 100 mg, Oral, 2 times daily, First dose on 09/10/23 at 0900 0928 (Given - Provider: Kylah Parks RN)2048 (Given - Provider: Harjit Parsons RN) 08 (Given - Provider: Kylah Parks RN)2003 (Given - Provider: Haritha Martinez RN) 0945 (Given - Provider: Ricardo Landry RN) lactulose (Chronulac) 10 GM/15ML solution 20 g(Linked Group 1) 20 g, Oral, 3 times daily, First dose on 09/10/23 at 0900 0928 (Given - Provider: Kylah Parks RN)1338 (Given - Provider: Kylah Parks RN)2048 (Given - Provider: Harjit Parsons RN) 0839 (Given - Provider: Kylah Parks RN)144 (Given - Provider: Kylah Parks RN)2003 (Given - Provider: Hraitha Martinez RN) 0945 (Given - Provider: Ricardo [...] Kylah Parks RN)204 (See Alternative - Provider: Harjit Parsons RN) 0839 (See Alternative - Provider: Kylah Parks RN)1443 (See Alternative - Provider: Kylah Parks RN)2003 (See Alternative - Provider: Haritha Martinez RN) 0945 (See Alternative - Provider: Ricardo Landry RN)1332 (See Alternative - Provider: Ricardo Landry RN) jmyyccxp-hfdiyuvgaq-ks lymyxin (Neosporin) ointment (COMPLETED) Topical, Once, On Tue09/13/23 at 0345, For 1 dose, Apply to 0539 (Given - Provider: Harjit Parsons RN) tahujmfg-yhjyymbjua-lp lymyxin (Neosporin) ointment Topical, 3 times daily, [...] after reconstitution. 0538 (Not Given - Provider: Harjit Parsons RN - Reason: Loss of IV access) 0608 (Given - Provider: Harjit Parsons RN) 06 (Given - Provider: Haritha [...] Provider: Kylah Parks, RN)2048 (Given - Provider: Harjit Parsons, NASH) 0831 (Given - Provider: Kylah Parks, RN)2003 (Given - Provider: Haritha Martinez, NASH) 0945 (Given - Provider: Ricardo Landry RN) traZODone (Desyrel) tablet 100 mg 100 mg, Oral, Nightly, First dose on 09/10/23 at 2100 2048 (Given - Provider: Harjit Parsons RN) 2003 (Given - Provider: Haritha [...] Kylah Parks, NASH)1335 (Given - Provider: Kylah Parks RN)2117 (Given - Provider: Harjit Parsons RN) 0401 (Given - Provider: Harjit Parsons RN)0832 (Given - Provider: Kylah Parks, NASH)1231 (Given - Provider: Kylah Parks RN)1953 (Given - Provider: Haritha Martinez RN) 0157 (Given - Provider: Haritha Martinez, NASH)0626 (Given - Provider: Haritha Martinez, NASH) naloxone (Narcan) injection 0.4 mg 0.4 mg, IntraVENous, Every 5 min PRN, opioid reversal, respiratory depression, Starting on Tue09/14/23 at 0915, +++ For RR <10, pinpoint pupils, over sedation for opioid reversal - MUST notify data reduction technician provider immediately after first dose, may give [...] 6 hours PRN, nausea, vomiting, Starting on Tue09/10/23 at 0547, 1st Line. Give IV if patient is unable to take orally. If inadequate response within 60 minutes, proceed to next-line agent or contact provider if no further options ordered. 1706 (Given - Provider: Kylah Parks RN) 0404 (Given - Provider: Harjit Parsons RN)1231 (Given - Provider: Kylah Parks RN)195 (Given - Provider: Haritha Martinez, NASH) 0156 [...] - Provider: Haritha Martinez RN) sodium chloride ([place]) 0.65 % nasal spray 2 spray 2 [...] PRN, 1 dose, Starting on Tue07/02/24 at 1401, Until Tue07/02/24 at 1401, Routine, [...] STAT 1203 (Refused - Prov ider: Jakob Babcock, RN) Scheduled Medication Order 07/08/2024 07/09/2024 07/10/2024 [...] Discontinued, Routine 2154 (Given - Provider: Rachel Ronquillo, NASH) 0935 (Given - Provider: Clifford Archuleta, NASH)1500 (Canceled Entry - Provider: Auto Xfer/Discharge Rx [...] - Comment: JUst received from pharmacy.[facility] 0935 (Given - Provider: Clifford Archuleta, NASH) ferrous sulfate DR tab 325 mg 325 mg, Oral, DAILY, First dose on Tue07/10/24 at 0900, Until Discontinued, Routine 0935 (Given - Provider: Clifford Archuleta, NASH) fluticasone propionate (FLONASE) nasal spray 1 Lynn 1 Lynn, Each Nostril, DAILY, First dose on Tue07/10/24 at 0900, Until Discontinued, Routine, EACH NOSTRIL 0900 (Refused - Provider: Clifford Archuleta, NASH) hydroCHLOROthiazide tab 50 mg 50 mg, Oral, TWICE A DAY (DIURETIC), First dose on Tue07/09/24 at 2130, Until Discontinued, Routine 2155 (Refused - Provider: Rachel Ronquillo RN - Comment: does not want the side effects) 0936 (Given - Provider: Clifford Archuleta RN)1800 (Canceled [...] Discontinued, Routine 0935 (Given - Provider: Clifford Archuleta RN) melatonin tab 6 mg 6 mg, Oral, [...] on Tue07/09/24 at 2130, Until Discontinued, Routine 215 (Refused - Provider: Rachel Ronquillo RN - Comment: says she does not want the side effects) 0935 (Given - Provider: Clifford Archuleta, NASH)1800 (Canceled Entry - Provider: Auto Xfer/Discharge Rx - Comment: Automatically canceled at discontinue of medication order) topiramate (TOPAMAX) tab 25 mg 25 mg, Oral, DAILY, First dose on Tue07/10/24 at 0900, Until Discontinued, Routine, TOPAMAX LOOK ALIKE/SOUND ALIKE WARNING. 35 (Given - Provider: Clifford Archuleta, NASH) PRN Medication Order 07/08/2024 07/09/2024 07/10/2024 albumin [...] least potent medication first., STAT, (WASTE: VIRIDIANA) 814 (NOV Hold - Provider: Auto Hold - Reason: Other)914 (NOV Unhold - Provider: Auto Hold)2053 (Given - Provider: Rachel Ronquillo RN) ibuprofen (MOTRIN) tab 400 mg 400 mg, Oral, EVERY 4 HOURS PRN, Starting on Tue07/08/24 at 1955, Until Tue07/10/24 at 1851, Pain [...] Maximum dose of Ibuprofen is 3.2 grams/day. 08 (NOV Hold - Provider: Auto Hold - Reason: Other)914 (NOV Unhold - Provider: Auto Hold) lidocaine (preservative free) 10 mg/mL (1 %) injection (COMPLETED) ONE TIME ONLY PRN, 1 dose, Starting on Tue07/09/24 at 0833, Until Tue07/09/24 at 0833, Routine 0833 (Given - Provider: Ginger Milton MD) morphine injection 3 mg 3 mg, Intravenous, EVERY 6 HOURS PRN, Starting on Tue07/08/24 at 1957, Until Tue07/10/24 at 1851, Pain scale 7-10 (try PO med first if multiple routes ordered for same pain rating), STAT 0118 (Given - Provider: Mohit Barnes RN)0711 (Given - Provider: Yumiko Rivas RN)0815 (NOV Hold - Provider: Auto Hold - Reason: Other)0915 (NOV Unhold - Provider: Auto Hold)1352 (Given - Provider: Kraig Fernando LPN)2202 (Given - Provider: Rachel Ronquillo RN) 1046 (Given - Provider: Clifford Archuleta RN) ondansetron hcl (PF) (ZOFRAN) injection 4 mg 4 mg, Intravenous, EVERY 6 HOURS PRN, Starting on Tue07/08/24 at 1954, Until Tue07/10/24 at 1851, Administer over 2 Minutes, STAT, Nausea, Vomiting 0118 (Given - Provider: Mohit Barnes RN)0711 (Given - Provider: Yumiko Rivas RN)0815 (NOV Hold - Provider: Auto Hold - Reason: Other)0915 (NOV Unhold - Provider: Auto Hold) PRN Medication [...] a max duration of 1 day., Intra-Procedure 163 (Given - Provid er: Valentine Marley RN) [...] Routine 1254 (Given - Provid er: Max Rico MD) PRN Medication Order 08/28/2024 08/29/2024 08/30/2024 [...] 09/13/24 at 1357, Until Tue09/14/24 at 0214, December: cabinet override, December: cabinet override 1415 (Due) [...] ONLY PRN, 1 dose, Starting on Kiersten 09/27/24 at 1007, Until Kiersten 09/27/24 at 1007, Routine 1007 (Given - Provid [...] dose, On Kiersten 10/04/24 at 0817, STAT 0822 (Given - Provid er: Hi Lara RN) PRN Medication Order 10/16/2024 10/17/2024 10/18/2024 lidocaine (preservative free) 20 mg/mL (2 %) injection (COMPLETED) ONE TIME ONLY PRN, 1 dose, Starting on Kiersten 10/18/24 at 1349, Until Kiersten 10/18/24 at 1349, Routine 1349 (Given - Provid [...] Henry LPN)1500 (Refused - Provider: Chilo Henry LPN)202 (Given - Provider: Valentine Nieves LPN) 1221 (Given - Provider: Yumiko Gardiner LPN)1734 (Given - Provider: Yumiko Gardiner LPN)2150 (Given - Provider: Liudmila William LPN) 0948 (Given - Provider: Yumkio Gardiner LPN)1500 (Canceled Entry - Provider: Auto [...] VIRIDIANA) 1325 (Given - Provider: Dilshad Manriquez RN)202 (Given - Provider: Valentine Nieves LPN) 1222 (Given - Provider: Yumiko Gardiner LPN)2150 (Given [...] LPN) 1221 (Given - Provider: Yumiko Gardiner LPN)2150 (Given [...] Reason: NPO)1735 (Given - Provider: Yumiko Gardiner LPN)2150 (Given [...] LPN) 1221 (Given - Provider: Yumiko Gardiner LPN)2150 (Given [...] at 0342, Until Kiersten 12/13/24 at 2059, Pain - see PRN comments, Headache, STAT acetaminophen (TYLENOL) tab 650 mg 650 mg, Oral, EVERY 6 HOURS PRN, Starting on Tue12/10/24 at 034, Until Tue12/13/24 at 2058, Fever, temp greater [...] PRN, Starting on Tue12/10/24 at 034, Until Kiersten 12/13/24 at 2058, Wheezing, shortness of breath, STAT magnesium sulfate in water (2g/50mL premix) piggyback (PREMIX) 2 g 2 g, Intravenous, DIRECTED PRN, Starting on Tue12/10/24 at 034, Until Kiersten 12/13/24 at 2058, Administer over 8 Hours, STAT, For Magnesium less than or equal to 1.7., Other, For Magnesium less than or equal to 1.7. methocarbamoL (ROBAXIN) tab 500 mg 500 mg, Oral, TWICE A DAY PRN, Starting on Tue12/11/24 at 1225, Until Tue12/13/24 at 2058, Muscle spasms, Routine 1325 (Given - Provider: Dilshad Manriquez, NASH) potassium chloride SA (KLOR-CON M20) tab 20 mEq 20 mEq, Oral, DIRECTED PRN, Starting on Tue12/10/24 at 034, Until Tue12/13/24 at 2058, Other, For Potassium less than or equal to 3.4., STAT, DO NOT CRUSH DO NOT CRUSH, For Potassium less than or equal to 3.4. sodium chloride flush 0.9 % syringe 10 mL 10 mL, Intravenous, PRN, Starting on Tue12/10/24 at 034, Until Tue12/13/24 at 2058, before and after IV push and IV piggyback medications, STAT traMADoL (ULTRAM) tab 50 mg 50 mg, Oral, EVERY 12 HOURS PRN, Starting on Tu12/11/24 at 1225, Until Tue12/13/24 at 2058, Pain scale 7-10 (try PO med first if multiple routes ordered for same pain rating), Routine, (WASTE: VIRIDIANA) 1325 (Given - Provider: Dilshad Manriquez RN) 0131 (Given - Provider: Liudmila William LPN) traZODone (DESYREL) tab 50 mg 50 mg, Oral, AT BEDTIME PRN, Starting on 12/10/24 at 0341, Until Tue12/13/24 at 2058, Sleep, [...] BE BASED ON THE PRIMARY CLINICAL RECORDS. [employer] [facility]. provides no warranty or guarantee of the accuracy or completeness of information in this document.
[2025-08-10 12:12] LABS: Color, Urine Yellow (Yellow); Glucose, Dipstick Normal (Normal); Ketone-Dipstick Negative (Negative); Leukocyte Esterase-Dipstick Negative /ul (Negative); Nitrite-Dipstick Negative (Negative); Occult Blood-Urine 25 /ul (Negative); Protein-Dipstick Negative (Negative); Specific Gravity, Urine 1.015 (1.002-1.030); Urine Bilirubin Dipstick Negative (Negative)
[2025-08-10 12:17] LABS: Squamous Epithelial Cells - UA 0-5 SEEN /hpf (5-10)
[2025-08-10 12:18] LABS: Red Blood Cells-Urine 0-5 SEEN /hpf (0-5)
[2025-08-10 12:24] LABS: AST(SGOT) 90 U/L (<=31); Alanine Aminotransfer ALT/SGPT 59 U/L (<=34); Albumin, Serum 3.1 g/dL (3.5-5.0); Alkaline Phosphatase 168 U/L (35-104); Anion Gap 7 (5-15); BUN 8 mg/dL (4-19); BUN/Creat Ratio 8.5 RATIO (10-20); Calcium,Total 9.1 mg/dL (7.6-11.0); Carbon Dioxide 23.8 mmol/L (21.0-32.0); Chloride 102 mmol/L (98-108); Estimated Creatinine Clearance 83.65 ml/min (50-250); Globulin 4.0 g/dL (2.2-4.2); Glucose 106 mg/dL (70-99); Lipase 35 U/L (13-75); Potassium 3.7 mmol/L (3.3-5.1)
[2025-08-10 13:30] VITALS: BP 127/72
== END 2025-08-10 15:18 | disposition home or self-care (01) ==
PROVIDERS: Emergency Provider Emergency Medicine; Visit Provider Emergency Medicine
DX: R18.8 Other ascites (principal); K74.60 Unspecified cirrhosis of liver; B18.2 Chronic viral hepatitis C; D69.6 Thrombocytopenia, unspecified; N13.2 Hydronephrosis with renal and ureteral calculous obstruction; F17.210 Nicotine dependence, cigarettes, uncomplicated
CPT/HCPCS: 74177; 80053; 81001; 83690; 85025; 96361; 96374; 96375; 96376; 99284; Q9967; A4216; J2405

== ENCOUNTER 2025-08-11 20:51 | Emergency (ER) | payer MEDICAID, SELFPAY ==
[2025-08-11 20:53] VITALS: BP 135/65; PULSE 73; RESP 20; TEMP 36.8; O2SAT 100; BMI 37.6
--- NOTE | 2025-08-11 21:08 | EX.ED.DYSGE1 ---
HPI History of Present Illness Chief Complaint: General Illness Informant: patient Onset/Context/Timing Onset: Weeks Context: Gradual Onset Timing: Continuous Current Severity: Mild Maximum Severity: Mild Narrative Narrative: 49-year-old female history of bipolar, liver cirrhosis with ascites, alcohol and drug abuse, anemia, COPD, hepatitis C. States she has not had abdominal paracentesis for over a year. Presented emergency department yesterday. Had unremarkable labs. Tells me she was offered admission at that time but they could not do the paracentesis till Tuesday so she did not want to wait and left. She returns tonight to be admitted for abdominal paracentesis. Prior similar symptoms: Yes Recent Illness/Hospitalization: No PFSH PFS Medical History Thrombocytopenia Dietary restriction History of pain when walking Decompensated cirrhosis Redness of skin Blackout Abdominal ascites Urolithiasis Hydronephrosis with renal calculous obstruction Hydroureteronephrosis Bipolar disorder Anxiety Depression Ascites of liver Complete edentulism, class III Alcohol abuse Chronic pain GERD (gastroesophageal reflux disease) Restless legs Iron deficiency anemia Hyperbilirubinemia Substance abuse Marijuana use MRSA infection Low iron Anemia Hepatitis Migraine headache Seizures History of diverticulitis COPD (chronic obstructive pulmonary disease) Smoker Obesity Polysubstance abuse Cirrhosis of liver Anxiety and depression Hepatitis C, chronic Home Medications Medication Instructions Recorded Last Taken Type trazodone 50 mg tablet 50 mg PO QHS PRN sleep 01/23/25 07/10/25 History lactulose 10 gram/15 mL oral 10 g (15 mL) PO TID PRN stomach 02/05/25 07/10/25 Rx solution upset #3,000 mL rifaximin 550 mg tablet (Xifaxan) 550 mg PO BID diarrhea 30 days #60 05/20/25 07/10/25 Rx tabs ursodiol 500 mg tablet 500 mg PO TID 1 month #90 tabs 05/21/25 07/10/25 Rx aripiprazole 5 mg tablet 5 mg PO DAILY 07/11/25 07/10/25 History buspirone 7.5 mg tablet 7.5 mg PO TID anxiety 07/11/25 07/10/25 History cholecalciferol (vitamin D3) 50 50 mcg PO DAILY supplement 07/11/25 07/10/25 History mcg (2,000 unit) capsule desvenlafaxine succinate 25 mg 25 mg PO DAILY depression 07/11/25 07/10/25 History tablet,extended release 24 hr desvenlafaxine succinate 50 mg 50 mg PO DAILY depression 07/11/25 07/10/25 History tablet,extended release 24 hr gabapentin 300 mg capsule 300 mg PO TID nerve pain 07/11/25 07/10/25 History ramelteon 8 mg tablet 8 mg PO QHS sleep 07/11/25 07/10/25 History topiramate 50 mg tablet 50 mg PO DAILY seizures 07/11/25 07/10/25 History famotidine 20 mg tablet (Pepcid) 20 mg PO .evening PRN heart burn 1 07/25/25 Unknown Rx month #30 tabs sofosbuvir 400 mg-velpatasvir 100 1 tab PO QDAY 24 weeks #168 tabs 07/25/25 Unknown Rx mg tablet (Epclusa) furosemide 40 mg tablet (Lasix) 40 mg PO DAILY DIURETIC #30 tabs 07/30/25 Unknown Rx spironolactone 100 mg tablet 100 mg PO DAILY heart 1 month #30 07/30/25 Unknown Rx tabs bisacodyl 10 mg rectal suppository 10 mg [place] DAILY PRN constipation 08/08/25 Unknown Rx (Dulcolax (bisacodyl)) #30 ea doxycycline hyclate 100 mg tablet 100 mg PO BID 08/10/25 Unknown History hydromorphone 2 mg tablet 2 mg PO 4X/DAY 08/10/25 Unknown History pantoprazole 40 mg tablet,delayed 40 mg PO DAILY 08/10/25 Unknown History release Allergy/AdvReac Type Severity Reaction Status Date / Time bupropion HCl (From Allergy SEIZURES Verified 08/11/25 20:56 Wellbutrin) codeine Allergy Rash Verified 08/11/25 20:56 Family History Mother Diabetes Father Cancer HX Throat CA. Surgical History History of abdominal paracentesis H/O tubal ligation History of liver biopsy Social History adopted: No household members: family housing: other number of children: 3 current occupational status: unemployed pets and animals: Yes history of recent travel: No sexually active: Yes Smoking Status: Current every day smoker tobacco type: cigarettes second hand exposure: Yes alcohol intake: current alcohol intake frequency: a few times a month substance use type: former substance user Date of last use: heroin, methamphetamine, marijuana and other seatbelt use: always do you feel safe at home: Yes ROS ROS ED ROS Narrative Denies recent illness. Abdominal distention due to ascites. Denies vomiting. No diarrhea no fever. No dysuria. Constitutional Constitutional ED: Denies chills or fever(s) Eyes Eyes: Denies blurry vision ENT ENT ED: Denies ear pain Cardiovascular Cardiovascular: Denies chest pain Respiratory/Chest Respiratory/Chest: Denies cough Gastrointestinal Gastrointestinal: Reports abdominal pain; Denies constipation, diarrhea, melena, nausea or vomiting Genitourinary Genitourinary ED: Denies dysuria or hematuria Integumentary Denies abscess Neurologic Neurologic: Denies headache(s) Psychiatric Psychiatric: Denies anxiety Endocrine Endocrinology: Denies cold intolerance Hematologic/Lymphatic Hematologic/Lymphatic: Reports none Allergic/Immunologic Allergic/Immunologic ED: Denies mouth swelling, tongue swelling or urticaria EXAM Physical Exam Narrative Exam Narrative: 49-year-old female sitting upright in bed. Vital signs are stable afebrile. No acute distress. Each EENT exam pupils round react light. Moist movements. Neck nontender no JVD. Lungs clear to auscultation bilaterally. Heart regular rhythm rate about 75 no murmur. Chest wall ribs nontender. Abdomen distended. Ascites. No peritoneal signs. Positive bowel sounds. Moving all 4 extremities. 2+ pitting edema both lower extremities which is chronic. Normal medical parasitologist strength. Normal dorsi plantarflexion. Neurologically she is awake alert. Answering questions following commands. Const Vital Signs: 08/11/25 20:53 08/11/25 21:29 Temperature 98.2 F Temperature Source Oral Pulse Rate 73 Respiratory Rate 20 H Respiratory Effort Normal Non-Labored Short of Breath Respiratory Pattern Normal Blood Pressure 135/65 H Blood Pressure Mean 88 Pulse Ox 100 Oxygen Delivery Method Room Air MDM MDM MDM Narrative Medical decision making narrative: 49-year-old female with known abdominal ascites. Had unremarkable labs other than elevated liver enzymes on yesterday. I will repeat some labs. I will speak to the hospitalist at this consult and they would do his inpatient or just schedule her as an outpatient paracentesis for tomorrow. Repeat exam on no specific change. Labs are consistent with prior. I did speak to the hospitalist. Typically these are set up and on the outpatient basis. I will order this and they will work the patient in the schedule to have an abdominal paracentesis ultrasound-guided. History & Record Review Discussion w/independent historian: Patient Additional record(s) reviewed:: Prior inpatient record, Prior outpatient record, Prior ED visit and Prior labs Lab Data Attestation: I reviewed the patient's lab results. Lab results narrative: CBC shows white count 7. H&H 9.7 and 30. Platelets 68,000. Electrolytes show gap 7. BUN and creatinine 10 and 0.9. Glucose 120. Liver enzymes showed total bilirubin 2.58, AST 86. ALT 54. Alk phos 156. Labs are consistent with prior. Labs: Laboratory Results - last 24 hr 08/11/25 21:23 WBC 7.5 RBC 3.51 L Hgb 9.7 L Hct 30.5 L MCV 86.9 MCH 27.6 MCHC 31.8 L RDW Std Deviation 53.0 H RDW Coeff of Katalina 16.9 H Plt Count 68 L MPV 11.2 Immature Gran % (Auto) 0.400 Neut % (Auto) 63.7 Lymph % (Auto) 20.2 [place] % (Auto) 11.3 H Eos % (Auto) 4.0 Baso % (Auto) 0.4 Absolute Neuts (auto) 4.8 Absolute Lymphs (auto) 1.52 Nucleated RBC % 0 Sodium 133 Potassium 3.6 Chloride 102 Carbon Dioxide 23.7 Anion Gap 7 BUN 10 Creatinine 0.99 Estim Creat Clear Calc 79.85 Est GFR (MDRD) Non-Af 69 BUN/Creatinine Ratio 9.8 L Glucose 120 H Calcium 9.0 Total Bilirubin 2.58 H AST 86 H ALT 54 H Alkaline Phosphatase 156 H Total Protein 6.9 Albumin 3.0 L Globulin 3.9 Albumin/Globulin Ratio 0.8 L Discharge Plan Triage Chief Complaint: General Illness ED Provider: Timoteo Gardiner Dx/Rx/DC Orders Clinical Impression: Abdominal ascites, Cirrhosis of liver, Hepatitis C, chronic, Chronic anemia Instructions: ED Ascites Prescriptions: No Action trazodone 50 mg tablet 50 mg PO QHS PRN (Reason: sleep) sofosbuvir-velpatasvir [Epclusa] 400-100 mg tablet 1 tab PO QDAY 168 Days Qty: 168 0RF famotidine [Pepcid] 20 mg tablet 20 mg PO .evening PRN (Reason: heart burn) 30 Days Qty: 30 5RF gabapentin 300 mg capsule 300 mg PO TID Patient Comments: am buspirone 7.5 mg tablet 7.5 mg PO TID aripiprazole 5 mg tablet 5 mg PO DAILY Patient Comments: am ramelteon 8 mg tablet 8 mg PO QHS Patient Comments: take 30min prior to bedtime cholecalciferol (vitamin D3) 50 mcg (2,000 unit) capsule 50 mcg PO DAILY Patient Comments: am desvenlafaxine succinate 25 mg tablet extended release 24 hr 25 mg PO DAILY Patient Comments: am Rx Instructions: take with 50mg tablet to =75mg topiramate 50 mg tablet 50 mg PO DAILY Patient Comments: am desvenlafaxine succinate 50 mg tablet extended release 24 hr 50 mg PO DAILY Patient Comments: am Rx Instructions: take with 25mg tab to = 75mg hydromorphone 2 mg tablet 2 mg PO 4X/DAY pantoprazole 40 mg tablet,delayed release (DR/EC) 40 mg PO DAILY doxycycline hyclate 100 mg tablet 100 mg PO BID lactulose 10 gram/15 mL solution 10 g PO TID PRN (Reason: stomach upset) Qty: 3000 0RF Xifaxan 550 mg tablet 550 mg PO BID 30 Days Qty: 60 6RF ursodiol 500 mg tablet 500 mg PO TID 30 Days Qty: 90 5RF Patient Comments: am furosemide [Lasix] 40 mg tablet 40 mg PO DAILY Qty: 30 0RF Rx Instructions: start on 04/14/24 spironolactone 100 mg tablet 100 mg PO DAILY 30 Days Qty: 30 2RF bisacodyl [Dulcolax (bisacodyl)] 10 mg suppository 10 mg [place] DAILY PRN (Reason: constipation) Qty: 30 1RF Other Ambulatory Orders: Paracentesis with US (Routine) Facility: [facility] - Location: [facility] Ordered By: Dr. Timoteo Gardiner Primary Care Provider: Eyad Saeed Referrals: Eyad Saeed, [facility] [Primary Care Provider, Family Practice] - As Needed Activity Restrictions/Additional Instructions: Follow-up with the radiology department tomorrow. They will set you up for an outpatient appointment to get an ultrasound-guided paracentesis. Print Language: Senegalese Disposition Disposition: Home, Self Care
--- OUTSIDE RECORDS SUMMARY | 2025-08-11 21:28 | XMS RPT_ITS | CCD ---
Author Organization [facility] Care Team Providers Care Senior Ui Developer Name Role Phone SHONNA SANCHEZJANAY RENAY Unavailable Unav ailable RENAY BENTLEY Unavailable Unav ailable Dacia Acosta MD Primary Care Provider Dacia Acosta MD Primary Care Provider Dr. Dacia Acosta Primary Care Provider [phone] Dr. Pedrito Rosario Emergency Provider Dr. Sowmya Mirza Admit Provider Dr. oSwmya Mirza Other Provider Dr. Son Adams Other Provider Jim GAMEZ, CONCHIS Ewing Attending Provider Dacia Acosta MD Primary Care Provider Dr. Dacia Acosta Primary Care Provider Dr. Pedrito Rosario Emergency Provider Dr. Sowmya Mirza Admit Provider Dr. Sowyma Mirza Other Provider Dr. Son Adams Attending Provider Dr. Son Adams Other Provider Dr. Dacia Acosta Referring Provider Dr. Marcelina Foster Attending Provider [phone] FriendDr. Kumar Other Provider Elderbrock MD, Dacia D Primary Care Provider Dr. Dacia Acosta Primary Care Provider [phone] Dr. Darius Rosales Emergency Provider Dr. Gurinder Mittal Admit Provider Dr. Gurinder Mittal Other Provider Friend, Dr. Kumar Other Provider Dr. Michi Forbes Attending Provider Dr. Michi Forbes Other Provider CONCHIS Denton Attending Provider Dr. Dacia Acosta Primary Care Provider Dr. Darius Rosales Emergency Provider Dr. Gurinder Mittal Admit Provider Aganita, Dr. [...] Eduardo, Dr. Elena Higgins Other Provider Dr. Dacia Acosta Primary Care Provider Dr. Darius Rosales Emergency Provider Dr. Gurinder Mittal Admit Provider Dr. Gurinder Mittal Other Provider Friend, Dr. Kumar Other Provider Dr. Michi Forbes Attending Provider Dr. Michi Forbes Other Provider CONCHIS Denton Attending Provider Dr. Dacia Acosta Referring Provider [phone] Dr. Son Adams Attending Provider Bryan, Dr. Cline Referring Provider Bryan, Dr. Cline Other Provider Luis Eduardo, Dr. Elena Higgins Admit Provider Korsherif, Dr. Elena Higgins Other Provider Dr. Oscar Pantoja Attending Provider Unavailable Dr. Oscar Pantoja Other Provider Unavailable Bean CAO, Priscilla Unavailable KOKO RUIZ Referring Unavailable DACIA ACOSTA Primary Care Unavailable ELVIN MERAZ Admitting Unavailable JEROME AMAYA Attending Unavailable JT MALDONADO Consulting Unavailable Dr. Dacia Acsota Primary Care Provider Dr. Son Adams Referring Provider Dr. Son Adams Other Provider Friend, Dr. Kumar Other Provider CONCHIS Denton Attending Provider Dr. Darius Rosales Emergency Provider [phone] Luis Eduardo, Dr. Elena Higgins Admit Provider Luis Eduardo, Dr. Elena Higgins Other Provider Dr. Oscar Pantoja Attending Provider Unavailable Dr. Oscar Pantoja Other Provider Unavailable Dr. Dacia Acosta Primary Care Provider Dr. Son Adams Referring Provider Dr. Son Adams Other Provider Friend, Dr. Kumar Other Provider CONCHIS Denton Attending Provider Dr. Darius Rosales Emergency Provider Luis Eduardo, Dr. Elena Higgins Admit Provider Korsherif, Dr. Elena Higgins Other Provider Dr. Oscar Pantoja Attending Provider Unavailable Dr. Oscar Pantoja Other Provider Unavailable Dr. Emperatriz Craig Emergency Provider Dr. Sowmya Mirza Admit Provider Dr. Sowmya Mirza Other Provider Dr. Son Adams Attending Provider Friend, Dr. Kumar Attending Provider Dr. Ricardo Pollack Other Provider Bean CAO, Priscilla Unavailable Dr. Dacia Acosta Primary Care Provider Dr. Son Adams Other Provider CONCHIS Denton Attending Provider Dr. Son Adams Referring Provider Dr. Dacia Acosta Referring Provider Friend, Dr. Kumar Other Provider Dacia Acosta MD Primary Care Provider DR DACIA ACOSTA MD Primary Care Physician DR DACIA ACOSTA MD Primary Care Unavailab CARLA Wisdom DO Attending Unavailable Unavailable Primary Care Provider UnavailDACIA Sol Primary Care Unavailable KOKO RUIZ (RES) Attending Unavailabl e Unavailable Primary Care Provider Unavailabl josé Welsh MD, Katharina L. Unavailable [phone] [place] SALES EXECUTIVE, Ashlee Unavailable Espinoza Ange Primary Care Provider Pcp SALES EXECUTIVE, No Primary Care Provider Unavailluigi josé FOSTER DORAMARCELINA Primary Care Physician CEE DOOLEY, DR BARAHONA Attending Unavailab wendy KRISTIN DO MARCELINA Primary Care Unavailable [facility], [facility] Primary Care Pro vider [facility], [facility] Referring Provid er Bryan DOOLEY, Dr. Cilne Attending Provider Dr. Michi Cope DO Emergency Provider Dr. Michi Cope DO Attending Provider Priscilla SENIOR PROFESSIONAL SERVICES CONSULTANT-CTresa Primary Care Provider Priscilla SENIOR PROFESSIONAL SERVICES CONSULTANT-CTresa Attending Provider Richard DOOLEY, Dr. Perez Emergency Provider MD GINGER MILTON (ERIK) Consulting Unavailable PETE PONCE Attending Unavailable GINGER MILTON Consulting Unavailable LEAH HECTOR Attending Unavailable GAING, KUSUM Consulting Unavailable VANESA PRETTY~[id number] ROCCO Admitting Unavailable EXTERNAL, PROVIDER Referring Unavailable ARABELLA, KUSUM Consulting Unavailable KATHARINA WELSH Consulting Unavailable KATHARINA WELSH Consulting Unavailable PETE PONCE Attending Unavailable ESPINOZA ANGE, ANGE~[id number] ESPINOZA Primary Care Unavailable DO LAMBERT VELIZ Attending Unavailable ESPINOZA ANGE, ANGE~[id number] ESPINOZA Primary Care Unavailable PETE PONCE Attending Unavailable ESPINOZA ANGE, ANGE~[id number] ESPINOZA Primary Care Unavailable MD GINGER MILTON) Referring Unavailable MD GINGER MILTON) Admitting Unavailable ESPINOZA ANGE, ANGE~[id number] ESPINOZA Primary Care Unavailable GÓMEZ, MINDA Admitting Unavailable GÓMEZ, MINDA Referring Unavailable GÓMEZ, MINDA Admitting Unavailable GÓMEZ, MINDA Attending Unavailable MD GINGER MILTON) Attending Unavailable MD GINGER MILTON) Admitting Unavailable MD GINGER MILTON) Attending Unavailable MD GINGER MILTON (ERIK) Admitting Unavailable MD GINGER MILTON (ERIK) Admitting Unavailable MD GINGER MILTON (ERIK) Attending Unavailable DEERK MONTGOMERY, ANGE~[id number] ESPINOZA Primary Care Unavailable MAX RICO Attending Unavailable MAX RICO Admitting Unavailable MAX RICO Attending Unavailable MAX RICO Admitting Unavailable GÓMEZ, MINDA Attending Unavailable GÓMEZ, MINDA Admitting Unavailable GÓMEZ, MINDA Attending Unavailable GÓMEZ, MINDA Admitting Unavailable GÓMEZ, IMNDA Admitting Unavailable GÓMEZ, MINDA Attending Unavailable MAX RICO Admitting Unavailable MAX RICO Attending Unavailable MD GINGER MILTON (ERIK) Admitting Unavailable MD GINGER MILTON (ERIK) Attending Unavailable ESPINOZA ANGE, ANGE~[id number] ESPINOZA Primary Care Unavailable NEEL ANAND Attending Unavailable ESPINOZA ANGE, ANGE~[id number] WOLF Primary Care Unavailable LYSSA FARRELL Attending Unavailable ESPINOZA ANGE, ANGE~[id number] ESPINOZA Primary Care Unavailable JOSE ALEJANDRO ROBERTS Attending Unavailable DESTINY ELLER~[id number] BEKAH Attending Unavailable ESPINOZA ANGE, ANGE~[id number] WOLF Primary Care Unavailable MAX RICO Referring Unavailable MAX RICO Admitting Unavailable REFERRAL SELF, SELF~[id number] REFERRAL Attendin g Unavailable REFERRAL SELF, SELF~[id number] REFERRAL Referrin g Unavailable ESPINOZA ANGE, ANGE~[id number] WOLF Primary Care Unavailable MD GINGER MILTON (ERIK) Referring Unavailable MD GINGER MILTON (ERIK) Admitting Unavailable GÓMEZ, MINDA Referring Unavailable GÓMEZ, MINDA Admitting Unavailable GÓMEZ, MINDA Referring Unavailable GÓMEZ, MINDA Admitting Unavailable MAX RICO Referring Unavailable DESTINY ELLER~[id number] BEKAH Attending Unavailable DEREK ANGE, ANGE~[id number] WOLF Primary Care Unavailable LUCAS VILLANUEVA Attending Unavailabl e DEREK MONTGOMERY, ANGE~[id number] WOLF Primary Care Unavailable JUDIE VALERIO~[phone] REJI Attending Unavailable DEREK MONTGOMERY ANGE~[id number] ESPINOZA Primary Care Unavailable MAX RICO Attending Unavailable MD GINGER MILTON (ERIK) Attending Unavailable GÓMEZ, MINDA Attending Unavailable DESTINY ELLER~[id number] BEKAH Attending Unavailable DEREK MONTGOMERY, ANGE~[id number] WOLF Primary Care Unavailable MAX RICO Referring Unavailable JACKY, MAX Admitting Unavailable GÓMEZ, MINDA Referring Unavailable GÓMEZ, MINDA Admitting Unavailable MD GINGER MILTON (ERIK) Referring Unavailable JACKY, MAX Admitting Unavailable JACKY, MAX Referring Unavailable JACKY, MAX Admitting Unavailable ESPINOZA ANGE, ANGE~[id number] ESPINOZA Primary Care Unavailable GÓMEZ, MINDA Referring Unavailable GÓMEZ, MINDA Admitting Unavailable GÓMEZ, MINDA Admitting Unavailable ESPINOZA ANGE, ANGE~[id number] ESPINOZA Primary Care Unavailable GÓMEZ, MINDA Referring Unavailable MD GINGER MILTON (ERIK) Attending Unavailable ESPINOZA ANGE, ANGE~[id number] ESPINOZA Primary Care Unavailable NE DE GUZMAN Attending Unavailable ESPINOZA ANGE, ANGE~[id number] ESPINOZA Primary Care Unavailable GÓMEZ, MINDA Admitting Unavailable ESPINOZA ANGE, ANGE~[id number] ESPINOZA Primary Care Unavailable GÓMEZ, MINDA Attending Unavailable MD GINGER MILTON (ERIK) Consulting Unavailable PETE PONCE Attending Unavailable GINGER MILTON Consulting Unavailable DEZ PETE Attending Unavailable ESPINOZA ANGE, ANGE~[id number] ESPINOZA Primary Care Unavailable ESPINOZA ANGE, ANGE~[id number] ESPINOZA Primary Care Unavailable GÓMEZ, MINDA Admitting Unavailable GÓMEZ, MINDA Attending Unavailable GILL JUDIE, JUDIE~[phone] REJI Attending Unavailable ESPINOZA ANGE, ANGE~[id number] ESPINOZA Primary Care Unavailable MD GINGER MILTON) Attending Unavailable ESPINOZA ANGE, ANGE~[id number] ESPINOZA Primary Care Unavailable ESPINOZA ANGE, ANGE~[id number] ESPINOZA Primary Care Unavailable GÓMEZ, MINDA Attending Unavailable ESPINOZA ANGE, ANGE~[id number] ESPINOZA Primary Care Unavailable YEISON AGUILAR Attending Unavailable KATHARINA WELSH Attending Unavailable KATHARINA WELSH Attending Unavailable MD GINGER MILTON) Attending Unavailable KRISTIN, MARCELINA Attending Unavailable GÓMEZ, MINDA Attending Unavailable CONTROL, INFECTION Attending Unavailable KATHARINA WELSH Attending Unavailable ASHLEE FRAZIER Attending Unavailable GÓMEZ, MINDA Admitting Unavailable ESPINOZA ANGE, ANGE~[id number] ESPINOZA Primary Care Unavailable NAVJOT WHIPPLE Attending Unavailable ESPINOZA ANGE, ANGE~[id number] ESPINOZA Primary Care Unavailable REJI BEALICE, JUDIE~[phone] REJI Attending Unavailable MD GINGER MILTON) Referring Unavailable GÓMEZ, MINDA Attending Unavailable ESPINOZA ANGE, ANGE~[id number] ESPINOZA Primary Care Unavailable GÓMEZ, MINDA Attending Unavailable REFERRAL SELF, SELF~[id number] REFERRAL Attendin g Unavailable MD GINGER MILTON (ERIK) Attending Unavailable BLAISE, KATHARINA Alexander Attending Unavailable MAX RICO Attending Unavailable MD GINGER MILTON (ERIK) Attending Unavailable ESPINOZA ANGE, ANGE~[id number] ESPINOZA Primary Care Unavailable MAX RICO Attending Unavailable ESPINOZA ANGE, ANGE~[id number] ESPINOZA Primary Care Unavailable MD GINGER MILTON (ERIK) Attending Unavailable BLAISE, KATHARINA LJackie Attending Unavailable ESPINOZA ANGE, ANGE~[id number] ESPINOZA Primary Care Unavailable GÓMEZ, MINDA Attending Unavailable MAX RICO Admitting Unavailable MAX RICO Attending Unavailable EXTERNAL, PROVIDER Referring Unavailable DO LAMBERT VELIZ Attending Unavailable DATLA, VIVEKANANDA Consulting Unavailable TOD MORROW~[id number] ROSE MARIE Admitting Unavailable DATLYUBOV, VIVEKANANDA Consulting Unavailable MD GINGER MILTON (ERIK) Consulting Unavailable GINGER MILTON Consulting Unavailable ESPINOZA ANGE, ANGE~[id number] ESPINOZA Primary Care Unavailable ABDI ROWAN Consulting Unavailable MD ISABELLA CH Admitting Unavailable LEAH HECTOR Attending Unavailable RALF JONES~[id number] ASHLYN Referring Unavailable ABDI ROWAN Consulting Unavailable GAING, KUSUM Consulting Unavailable GAING, KUSUM Consulting Unavailable GÓMEZ, MINDA Consulting Unavailable GÓMEZ, MINDA Consulting Unavailable BLAISE, KATHARINA L. Consulting Unavailable BLAISE, KATHARINA L. Consulting Unavailable Richard DOOLEY, Dr. Perez Attending Provider Dr. Pedrito Rosario DO Emergency Provider Dr. Brock Ruiz DO Emergency Provider Dr. Brock Ruiz DO Attending Provider Dr. Shon Quintero MD Attending Provider Dr. Shon Quintero MD Referring Provider Dr. Son Adams MD Primary Care Provider [phone] Dr. Marcelina Foster DO Attending Provider Beam SENIOR PROFESSIONAL SERVICES CONSULTANT-C, Eyad Primary Care Provider Beam SENIOR PROFESSIONAL SERVICES CONSULTANT-C, Zebulun Referring Provider Dr. Marcelina Foster DO Other Provider MARIAH BENAVIDEZ Attending [facility] Primary Care Pro vider [facility], [facility] Referring Provid er Bryan DOOLEY, Dr. Cline Attending Provider Anatoliy MADERA, Dr. Borden Attending Provider Anatoliy MADERA, Dr. Borden Emergency Provider Tannhof SENIOR PROFESSIONAL SERVICES CONSULTANT-C, Tresa Primary Care Provider Tannhof SENIOR PROFESSIONAL SERVICES CONSULTANT-C, Tresa Attending Provider Richard DOOLEY, Dr. Perez Attending Provider Richard DOOLEY, Dr. Perez Emergency Provider Wendy MADERA, Dr. Major Emergency Provider Sara MADERA, Dr. Gutiérrez Attending Provider Sara MADERA, Dr. Gutiérrez Emergency Provider Leon DOOLEY, Dr. Menendez Attending Provider Leon DOOLEY, Dr. Menendez Referring Provider Bryan DOOLEY, Dr. Cline Primary Care Provider Kristin MADERA, Dr. Kumar Attending Provider Beam SENIOR PROFESSIONAL SERVICES CONSULTANT-C, Zebulun Primary Care Provider Beam SENIOR PROFESSIONAL SERVICES CONSULTANT-C, Zebulun Referring Provider Dr. Marcelina Foster DO Other Provider Beam SENIOR PROFESSIONAL SERVICES CONSULTANT-C, Zebulutimothy Attending Provider Wendy MADERA, Dr. Major Attending Provider Jennie DOOLEY, Dr. Nascimento Attending Provider [facility], [facility] Primary Care Pro vider [facility], [facility] Referring Provid er Bryan DOOLEY, Dr. Cline Attending Provider KWAME DOOLEY, CESIA Kumar Attending Unavail [facility] KRISTIN MADERA, MARCELINA Primary Care Unavailable Leon DOOLEY, Dr. Menendez Attending Physician [phone] Bryan DOOLEY, Dr. Cline Primary Care Physician Kristin MADERA, Dr. Kumar Attending Physician Beam SENIOR PROFESSIONAL SERVICES CONSULTANT-C, Zebualex Primary Care Physician Kristin MADERA, Dr. Kumar Nurse Practitioner Beam SENIOR PROFESSIONAL SERVICES CONSULTANT-C, Zebualex Attending Physician Jennie DOOLEY, Dr. Nascimento Attending Physician [facility] Referring Provid er Bryan DOOLEY, Dr. Cline Attending Physician [facility], Out of Attending Physician [facility] Beam SENIOR PROFESSIONAL SERVICES CONSULTANT-C, Zebualex Primary Care Physician Beam SENIOR PROFESSIONAL SERVICES CONSULTANT-C, Zebulun Referring Provider CURT PEDROZA Attending Physician Unavailable Sara MADERA, Dr. Gutiérrez Attending Physician Dr. Brock Ruiz DO [facility] Abdifatah DOOLEY, Dr. Mahmood Emergency Department Physici an Bryan DOOLEY, Dr. Cline Nurse Practitioner Dr. Timoteo Gardiner MD Attending Physician Abdifatah DOOLEY, Dr. Mahmood Referring Provider Beam SENIOR PROFESSIONAL SERVICES CONSULTANT-C, Zebulun Primary Care Physician Beam SENIOR PROFESSIONAL SERVICES CONSULTANT-C, Zebulun Attending Physician Beam SENIOR PROFESSIONAL SERVICES CONSULTANT-C, Zebulun Referring Provider Jennie DOOLEY, Dr. Nascimento Attending Physician [facility] Referring Provid er Bryan DOOLEY, Dr. Cline Attending Physician CURT PEDROZA Attending Physician Unavailable Sara MADERA, Dr. Gutiérrez Attending Physician Sara MADERA, Dr. Gutiérrez Emergency Departmen t Physician Abdifatah DOOLEY, Dr. Mahmood Attending Physician Abdifatah DOOLEY, Dr. Mahmood Emergency Department Physici an Bryan DOOLEY, Dr. Cline Nurse Practitioner Abdifatah DOOLEY, Dr. Mahmood Referring Provider Mary Barahona Attending Physician Otis DOOLEY, Dr. Fong Attending Physician Bryan DOOLEY, Dr. Cline Referring Provider ЕКАТЕРИНА SNYDER Attending Unavailable Beam VSC, Zebulun Referring Unavailable Bryan, Son Primary Care Unavailable Beam VSC, Zebulun Attending Unavailable Beam VSC, Zebulun Referring Unavailable Beam VSC, Zebulun Attending Unavailable Beam VSC, Zebulun Primary Care [facility] Referring Unavailable Bryan, Son Attending Unavailable Beam VSC, Zebulun Referring Unavailable Friend, Marcelina Attending Unavailable Beam VSC, Zebulun Primary Care Unavailable Bryan, Son Attending Unavailable Bryan, Son Referring Unavailable Beam VSC, Zebulun Primary Care Unavailable Tresa Sandoval Attending Unavailable Priscilla Tresa Primary Care Unavailable Timoteo Gardiner Referring Unavailable Timoteo Gardiner Attending Unavailable Beam VSC, Zebulun Primary Care Unavailable Brayn, Son Consulting Unavailable Enmanuel, Mary Referring Unavailable Mary Singer Attending Unavailable Beam VSC, Zebulun Primary Care Unavailable Beam VSC, Zebulun Referring Unavailable Friend, Marcelina Attending Unavailable Friend, Marcelina Consulting Unavailable Beam VSC, Zebulun Primary Care Unavailable Tannhof, Tresa Primary Care Unavailable Tannholinda Tresa Attending Unavailable Quintero, Shon Referring Unavailable Quintero, Shon Attending Unavailable Bryan, Son Primary Care Unavailable Azam Schneider Attending Unavailable Beam VSC, Zebulun Primary Care Unavailable Beam VSC, Zebulun Referring Unavailable [facility] Referring Unavailable Bryan Son Attending Unavailable Michi Cope Attending Unavailable [facility] Primary Care Unavailable Tannhof, Tresa Primary Care Unavailable Chris Ramos Attending Unavailable Beam VSC, Zebulun Primary Care Unavailable Beam VSC, Zebulun Attending Unavailable Beam VSC, Zebulun Referring Unavailable KARIS ROUSE Attending Unavailable Beam VSC, Zebulun Primary Care Unavailable Beam VSC, Zebulun Referring Unavailable Beam VSC, Zebulun Primary Care Unavailable Beam VSC, Zebulun Attending Unavailable Tannhof, Tresa Primary Care Unavailable Pedrito Rosario Attending Unavailable Tannhof, Tresa Primary Care Unavailable Abby-Brock Nash Attending Unavailabl e Tannhof, Tresa Referring Unavailable TannhofTresa Attending Unavailable Beam VSC, Zebulun Primary Care Unavailable Beam VSC, Zebulun Referring Unavailable Mary Singer Attending Unavailable Beam VSC, Zebulun Primary Care Unavailable Beam VSC, Zebulun Primary Care Unavailable Beam VSC, Zebulun Attending Unavailable Beam VSC, Zebulun Referring Unavailable Beam VSC, Zebulun Referring Unavailable Beam VSC, Zebulun Primary Care Unavailable Son Adams Attending Unavailable [facility] Referring Unavailable Son Adams Attending Unavailable Beam VSC, Zebulun Primary Care Unavailable Beam VSC, Zebulun Primary Care Unavailable Ajit Berg Attending Unavailable Beam VSC, Zebulun Primary Care Unavailable Bryan Son Referring Unavailable Son Adams Attending Unavailable Brock Ruiz Attending Unavailabl e Beam VSC, Zebulun Primary Care Unavailable Timoteo Gardiner Attending Unavailable Beam VSC, Zebulun Primary Care Unavailable Tannhof, Tresa Primary Care Unavailable Beam VSC, Zebulun Attending Unavailable Allergies Allergy Classification Reported Allergen(s) Allergy Type Date of Onset Reaction(s) Facility Aminoketones (3 sources) buPROPion; Translations: [bupropion] Drug Allergy 3 Other: See Comments [facility] Aspirin (2 sources) Aspirin; Translations: [aspirin] Drug Allergy 5 Weal (disorder) [facility] Corticosteroids (1 source) predniSONE Drug Allergy 9 [facility] Opioid Agonists (2 sources) Codeine; Translations: [codeine] Drug Allergy 5 Weal (disorder), Rash [facility] (20 sources) Aspirin; Translations: [ASPIRIN] Drug Allergy 5 Weal (disorder) [facility] Repository (20 sources) buPROPion; Translations: [BUPROPION HCL] Drug Allergy 3 Other: See Comments [facility] Repository (20 sources) Codeine; Translations: [CODEINE] Drug Allergy 5 Rash, Hives, Weal (disorder) [facility] Repository (20 sources) buPROPion; Translations: [BUPROPION] Drug Allergy 3 Other: See Comments, Other (See Comments), Mental Status Change [facility] (20 sources) predniSONE; Translations: [PREDNISONE] Drug Allergy 9 [facility] Work Phone: (3 sources) Prednisone Propensity to adverse reactions 9 [facility] Medications Current Medications Medication Drug Class(es) Dates Sig (Normalized) Sig (Original) acetaminophen 325 mg / oxyCODONE hydrochloride 5 mg oral tablet (1 source) Opioid Agonist Start: 07-25-2025 Start: 07-25-2025 [id number] 200 actuat albuterol 0.09 mg/actuat metered dose inhaler (20 sources) beta2-Adrenergic Agonist Start: 03-27-2025 albut kilo HFA (PROVENTIL HFA, VENTOLIN HFA) 90 mcg/actuation inhaler 03/27/2025 Active Start: 06-06-2024 End: 01-23-2025 Albuterol Sulfate 90 mcg/act uation HFA aerosol inhaler Discontinued 1 NMA INHALATION EVERY 6 HOURS as needed for shortness of breath or wheezing 1 0 June 19, 2024 3:11pm January 23, 2025 2:07pm Start: 12-04-2023 End: 06-06-2024 Albuterol Sulfate (Ventolin Hfa) 90 mcg/actuation HFA aerosol inhaler Discontinued 2 NMA INHALATION Q4H as needed for shortness of breath or wheezing December 04, 2023 12:00am June 06, 2024 3:43am Start: 12-04-2023 End: 01-23-2025 Start: 12-04-2023 Start: 12-04-2023 take 1 puff(s) [...] as needed for Sob &/Or Wheezing June 10, 2019 11:00pm July 20, 2023 6:59pm Start: 06-11-2019 End: 07-20-2023 Start: 06-11-2019 End: 07-20-2023 Start: 06-11-2019 End: 07-20-2023 take 1 puff(s) by inhalation every four hours as needed Albuterol Sulfate Discontinued 1 - 2 PUFF INHALATION EVERY 4 HOURS NEEDED June 11, 2019 12:00am July 20, 2023 7:59pm Comment on above: Inhale 2 Puffs as in structed every 4 hours as needed. ARIPiprazole 5 mg oral tablet (20 sources) Atypical Antipsychotic Start: 07-11-2025 take 1 tablet by mouth once daily Start: 03-23-2024 End: 06-06-2024 take 1 tablet by mouth once daily Aripiprazole 10 mg tablet Discontinued 10 mg PO DAILY May 16, 2024 11:00pm June 06, 2024 3:45am Start: 09-14-2022 End: 12-04-2023 take 1 tablet by mouth once daily Aripiprazole 30 mg tablet Discontinued 30 mg PO DAILY September 14, 2022 12:00am December 04, 2023 7:07pm Start: 05-15-2021 End: 05-10-2022 ARIPiprazole (ABILIFY) 20 mg tablet Start: 02-20-2019 take 15 mg by mouth at bedtime Aripiprazole Active 15 MG PO AT BEDTIME February 20, 2019 9:48am Start: 2013 End: 02-20-2019 take 5 mg by mouth at bedtime Aripiprazole 10 MG table t Discontinued 5 mg PO AT BEDTIME 2013 12:00am February 20, 2019 8:49am Start: 2013 End: 02-20-2019 Start: 2013 End: 02-20-2019 take 5 mg by mouth at bedtime Aripiprazole Discontinue d 5 MG PO AT BEDTIME 2013 1:00am February 20, 2019 9:49am ascorbic acid 500 mg oral tablet (20 sources) Vitamin C Start: 11-24-2023 End: 07-17-2024 take 1 tablet by mouth once daily ascorbic acid, vitamin C, (VITAMIN C) 500 mg tablet Take 1 tablet by mouth once daily. 30 tablet 5 01/19/2024 Active Comment on above: Take 1 tablet by nish once daily. benzonatate 200 mg oral capsule (4 sources) Non-narcotic Antitussive Start: 11-13-2024 take 1 capsule by mouth three times daily Benzonatate (TESSALON PERLES) 200 mg capsule Indications: Acute cough Take 1 Capsule by mouth Three times a day. 30 Capsule 11/13/2024 Active busPIRone hydrochloride 7.5 mg oral tablet (20 sources) Start: 07-11-2025 take 1 tablet by mouth three times daily Start: 03-07-2025 busPIRone (BUS PAR) 5 mg tablet 03/07/2025 Active Start: 04-11-2024 End: 07-11-2025 take 1 tablet by mouth twice daily Buspirone 10 mg tablet Discontinued 10 mg PO TWICE A DAY 60 0 January 23, 2025 2:38pm July 11, 2025 8:32am ANXIETY Start: 04-11-2024 End: 01-23-2025 take 1 tablet by mouth four times daily Buspirone 10 mg tablet Discontinued 10 mg PO 4 TIMES DAILY 120 0 June 19, 2024 3:11pm January 23, 2025 2:42pm ANXIETY Start: 04-11-2024 End: 01-23-2025 take 1 tablet by [facility] four times daily as needed busPIRone (Buspar) 10 MG tablet Take 10 mg by mouth 4 times daily as needed. 0 Active cholecalciferol 0.05 mg oral capsule (20 sources) Vitamin D Start: 07-11-2025 take 1 capsule by [facility] once daily Start: 03-06-2025 Cholecalcifero l, Vitamin D3, 50 mcg (2,000 unit) cap 03/06/2025 Active Start: 12-26-2023 End: 04-11-2024 take 1 capsule by mouth every week Cholecalciferol (Vitamin D3) 1,250 mcg (50,000 unit) capsule Discontinued 1250 ug PO EVERY WEEK December 25, 2023 11:00pm April 11, 2024 8:50pm Start: 08-25-2022 take 1 capsule by [facility] every week cholecalciferol, Vitamin D3, (VITAMIN D3) 1,250 mcg (50,000 unit) cap capsule Take 1 capsule by mouth one time a week. 12 capsule 3 08/25/2022 Active Start: 09-02-2021 take 1 capsule by [facility] every week cholecalciferol, Vitamin D3, (VITAMIN D3) 1,250 mcg (50,000 unit) cap capsule Take 1 capsule by mouth one time a week. 12 capsule 3 09/02/2021 Active Comment on above: Take 1 capsule by [facility] one time a week. ciclopirox 80 mg/ml topical solution (2 sources) Start: 03-28-2025 End: 04-27-2025 Ciclopirox (CICLODAN) 8 % solution Apply to affected area daily at bedtime. 6.6 mL 2 03/28/2025 04/27/2025 Active 24 hr desvenlafaxine succinate 25 mg extended release oral tablet (20 sources) Serotonin and Norepinephrine Reuptake Inhibitor Start: 07-11-2025 Start: 07-11-2025 Start: 03-23-2024 End: 07-11-2025 take 1 tablet by mouth once daily Desvenlafaxine Succinate 50 mg tablet extended release 24 hr Discontinued 50 mg PO DAILY 30 0 June 19, 2024 3:11pm July 11, 2025 8:49am Start: 09-16-2023 End: 09-15-2024 take 1 tablet [...] 24hr Discontinued 100 mg PO DAILY February 19, 2019 11:00pm December 04, 2023 7:07pm NERVE PAIN End: 07-09-2024 take 0.5 tablet by mouth once daily desvenlafaxine succinate (PRISTIQ) 50 mg tablet Take 50 mg by mouth Once Daily. Take 0.5 tablet daily. 0 07/09/2024 Discontinued (Duplicate medication order) dextromethorphan hydrobromide 3 mg/ml / promethazine hydrochloride 1.25 mg/ml oral solution (4 sources) Phenothiazine, Uncompetitive C-tlzbsd-T-aspartate Receptor Antagonist, Sigma-1 Agonist Start: 11-09-2024 Promethazine-DM (PROMETHAZINE-DM) 6.25-15 mg/5 mL syrup Indications: Acute non-recurrent maxillary sinusitis Take 5 mL by mouth EVERY 6 TO 8 HOURS PRN for Cough. 118 mL 11/09/2024 Active Cymbalta (5 sources) Serotonin and Norepinephrine Reuptake Inhibitor Start: 06-26-2017 Cymbalta Oral, 0 Refill(s) Start Date: 06/26/17 Status: Ordered Medication Dispense Status: Completed Total Allowed Fills: 1 Fills Dispensed: 0 Start: 06-26-2017 Cymbalta Oral, 0 Refill(s) Start [...] guidelines 1 Each 0 05/10/2024 05/11/2024 Active famotidine 20 mg oral tablet (1 source) Histamine-2 Receptor Antagonist Start: 07-25-2025 Start: 07-25-2025 FeroSul 325 mg (65 mg elemen jero iron) oral tablet (3 sources) Start: 03-23-2024 FeroSul 325 mg (65 mg elemental iron) oral tablet Dose : 325 mg = 1 tab(s), Oral, qDay Start Date: 03/23/24 Status: Ordered Medication Dispense Status: Completed Total Allowed Fills: 1 Fills Dispensed: 0 Start: 03-23-2024 FeroSul 325 mg (65 mg [...] iron) tablet (1 source) Start: 12-04-2023 Ferrous Sulfat e (Ferrous Sulfate 325 Mg (65 Mg Iron) Tablet) 325 mg (65 mg iron) tablet Active 325 MG PO DAILY December 04, 2023 1:00am fluticasone propionate 0.05 mg/actuat metered dose nasal spray (20 sources) Corticosteroid Start: 03-25-2025 fluticasone (F LONASE) 50 mcg/actuation nasal spray 03/25/2025 Active Start: 07-10-2024 End: 07-10-2024 take 1 spray(s) nasal route once daily 1 [place], Each Nostril, DAILY, First dose on Tue07/10/24 at 0900, Until Discontinued, Routine, EACH NOSTRIL Start: 06-06-2024 End: 01-23-2025 Fluticasone Propionate 50 mcg/actuation spray,suspension Discontinued 1 NMA INTRANASAL NEEDED as needed for nasal congestion 1 0 June 19, 2024 3:11pm January 23, 2025 2:04pm Start: 05-17-2024 End: 05-30-2024 Fluticasone Propionate 50 mcg/actuation spray,suspension Discontinued 1 NMA INTRANASAL Q12H as needed for allergy symptoms May 16, 2024 11:00pm May 30, 2024 3:58am Start: 05-17-2024 End: 05-30-2024 Start: 04-20-2024 take 2 spray(s) by m out once daily fluticasone (FLONASE) 50 mcg/actuation nasal spray Indications: Seasonal allergic rhinitis due to pollen Use 2 Sprays in each nostril once daily. Rinse mouth after use. 1 Each 04/20/2024 Active furosemide 40 mg oral tablet (20 sources) Loop Diuretic Start: 07-30-2025 take 1 tablet by nish th once daily Start: 12-06-2023 End: 07-30-2025 take 1 tablet by mouth once daily Furosemide (Lasix) 40 mg tablet Discontinued 40 mg PO DAILY 30 0 June 19, 2024 3:11pm June 22, 2024 2:17pm DIURETIC start on 04/14/24 Start: 08-21-2021 End: 04-20-2024 take 1 tablet by mouth once daily Furosemide (Lasix) 20 mg tablet Discontinued 20 mg PO DAILY 30 0 November 05, 2023 12:00am December 04, 2023 7:05pm Comment on above: [facility] gab[facility] 300 mg oral capsule (20 sources) Anti-epileptic Agent Start: 07-11-2025 take 1 capsule by mouth three times daily Start: 03-07-2025 gabapentin (NE URONTIN) 300 mg capsule 03/07/2025 Active Start: 12-11-2024 End: 12-13-2024 take 300 mg by mouth twice daily 300 mg, Oral, TWICE A DAY, First dose on Tue12/11/24 at 1230, Until Discontinued, Routine, (WASTE: VIRIDIANA) Start: 07-20-2023 End: 07-11-2025 take 1 capsule by mouth every eight hours Gabapentin 100 mg capsule Discontinued 100 mg PO Q8H July 19, 2023 11:00pm July 11, 2025 8:37am nerve pain Start: 07-20-2023 End: 07-10-2024 gabapentin 100 mg oral capsu le Dose : 100 mg = 1 cap(s), Oral, BID, 72.6 Start Date: 03/23/24 Status: Ordered Medication Dispense Status: Completed Total Allowed Fills: 1 Fills Dispensed: 0 Start: 07-20-2023 take 1 capsule by mo [facility] every twelve hours Gabapentin 100 mg capsule [...] Discontinued 100 mg PO TWICE A DAY 1 0 May 21, 2022 11:10am July 20, 2023 6:57pm NERVE PAIN Start: 02-09-2022 End: 04-10-2022 take 1 capsule [...] 400 mg PO TWICE A DAY February 19, 2019 11:00pm May 21, 2022 11:10am NERVE PAIN Start: 02-20-2019 End: 07-20-2023 Start: 02-20-2019 End: 07-20-2023 Start: 02-20-2019 End: 07-20-2023 take 100 mg by mouth twice daily Gabapentin Discontinu ed 100 MG PO TWICE A DAY May 21, 2022 11:10am July 20, 2023 6:57pm Start: 02-20-2019 take 300 mg by mouth once bridget y Gabapentin Active 300 MG PO DAILY February 20, 2019 12:00am take 3 capsules by [facility] twice daily gabapentin (NEURONTIN) 100 mg capsule Take 300 mg by mouth Twice a day. Active Comment on above: Take 1 capsule by [facility] twice daily for 30 days. Take 1 capsule by [facility] twice daily for 180 days. hydroCHLOROthiazide 50 mg / spironolactone 50 mg oral tablet (8 sources) Thiazide Diuretic, Aldosterone Antagonist take 1 tablet by mouth twice daily Spironolacton-Hydroch lorothiaz 50-50 mg Tab Take 50 mg by mouth Twice a day. Active iv contrast (will be provided with radiology test) (3 sources) Start: End: iv contrast (will be provided with radiology [...] link. 1 Each 0 05/10/2024 05/11/2024 Active Lactose (1 source) LACTOSE ORAL Leopoldo e by mouth. Active levoFLOXacin 750 mg oral tablet (2 sources) Quinolone Antimicrobial Start: 06-12-20 take 750 mg by mouth once daily Levofloxacin Active 750 MG PO DAILY June 12, 2021 12:00am lidocaine 0.05 mg/mg medicated patch (2 sources) Antiarrhythmic, Amide Local Anesthetic Start: 07-11-20 loperamide hydrochloride 2 mg oral capsule (2 sources) Opioid Agonist Start: 02-10-20 take 2 mg by mouth every four hours as needed Loperamide Active 2 MG PO EVERY 4 HOURS NEEDED February 09, 2019 12:00am methocarbamol 500 mg oral tablet (14 sources) Muscle Relaxant Start: 09-09-20 End: 12-14-19 25 take 1 tablet by mouth twice daily as needed methocarbamoL (ROBAXIN) 500 mg tablet Indications: Chronic bilateral low back pain without sciatica Take 1 Tablet by mouth Twice a day as needed. 20 Tablet 09/09/2024 Active metroNIDAZOLE 500 mg oral tablet (2 sources) Nitroimidazole Antimicrobial Start: 06-12-20 take 500 mg by mouth three times daily Metronidazole Active 500 MG PO THREE TIMES A DAY June 12, 2021 12:00am mupirocin 0.02 mg/mg topical ointment (20 sources) RNA Synthetase Inhibitor Antibacterial Start: 05-07-20 End: 05-14-20 mupirocin (BACTROBAN) 2 % ointment Indications: Abrasion of foot with infection, unspecified laterality, initial encounter , Skin lesion Apply 1 application to affected area two times a day for 7 days. 22 g 0 05/07/2024 05/14/2024 Active Start: 03-23-2024 apply 1 dose topical ly three times daily mupirocin 2% topical ointment Apply 1 darwin, Topical, TID, 72.6 Start Date: 03/23/24 Status: Ordered Medication Dispense Status: Completed Total Allowed Fills: 1 Fills Dispensed: 0 Start: 01-31-2024 mupirocin (EDIE TROBAN) 2 % [...] Indications: Amphetamine-type substance use disorder, severe (CMS/HCC) [place] 1 [place] in nose As directed for 1 dose. Call 911, Administer via Nasal every 3-5 min until patient becomes responsive. Repeat as many times as necessary for pt to become responsive. 2 Each 07/09/2024 Active Start: 09-14-2023 End: 09-15-2023 naloxone (Narcan) injection 0.4 mg naloxone (NARCAN) 4 mg/actuation nasal spray (9 sources) Start: 07-09-2024 naloxone (NARC AN) 4 mg/actuation nasal spray Indications: Amphetamine-type substance use disorder, severe [place] 1 [place] in nose As directed for 1 dose. Call 911, Administer via Nasal every 3-5 min until patient becomes responsive. Repeat as many times as necessary for pt to become responsive. 2 Each 07/09/2024 Active Start: 07-09-2024 naloxone (NARC AN) 4 mg/actuation nasal spray Indications: Amphetamine-type substance use disorder, severe (CMS/HCC) [place] 1 [place] in nose As directed for 1 dose. [...] Administer over 1 Days, Routine, (WASTE: PBKC) Start: 03-13-2024 apply 1 dose transde rmal route every hour nicotine (NICODERM) 21 mg/24 hr Apply 1 Patch as directed as directed. 12/07/2023 Active Start: 12-07-2023 End: 12-26-2023 apply 1 dose transdermal route every twenty-four hours Nicotine 21 mg/24 hr Patch 24 Hour Discontinued 21 mg TD DAILY 28 28 0 December 06, 2023 11:00pm December 26, 2023 10:05am Start: 09-11-2023 End: 09-15-2023 nicotine polacrilex (Commit) [...] Do not crush or chew. 0 Active pantoprazole 40 mg delayed release oral tablet (20 sources) Proton Pump Inhibitor Start: 03-13-20 End: 07-25-20 take 1 tablet by mouth once daily Pantoprazole 40 mg tablet,delayed release (DR/EC) Discontinued 40 mg PO DAILY March 12, 2025 11:00pm July 25, 2025 3:02pm gerd Start: 06-06-2024 End: 01-23-2025 take 1 tablet by mouth twice daily Pantoprazole (Protonix) 40 mg tablet,delayed release (DR/EC) Discontinued 40 mg PO TWICE A DAY 30 0 June 19, 2024 3:11pm January 23, 2025 2:39pm Start: 05-11-2024 End: 02-03-2025 take 1 tablet by mouth once daily Pantoprazole (Protonix) 40 mg tablet,delayed release (DR/EC) Discontinued 40 mg PO DAILY 30 0 May 10, 2024 11:00pm June 06, 2024 1:21pm Start: 12-07-2023 End: 04-11-2024 Start: 09-02-2021 End: 04-11-2024 take 1 tablet by mouth twice daily Pantoprazole (Protonix) 40 mg tablet,delayed release (DR/EC) Discontinued 40 mg PO TWICE A DAY 60 30 1 December 06, 2023 11:00pm April 11, 2024 8:54pm Comment on above: Take 1 tablet by nish th twice daily before meals. Take on empty stomach, 1/2 hr before meal. perflutren lipid microspheres 1.3 mL in NaCl (PF) 0.9% 10 mL injection (DEFINITY) (15 sources) Start: End: perflutren lipid microspheres 1.3 mL in NaCl (PF) 0.9% 10 mL injection (MarkTendITY) ramelteon 8 mg oral tablet (2 sources) Melatonin Receptor Agonist Start: 5 take 1 tablet by mouth at bedtime sofosbuvir 400 mg / velpatasvir 100 mg oral tablet (1 source) Hepatitis C Virus NS5A Inhibitor, Hepatitis C Virus Nucleotide Analog NS5B Polymerase Inhibitor Start: 5 take 1 tablet by mouth once daily Start: 07-25-2025 take 1 tablet by mouth once da ramón spironolactone 100 mg oral tablet (20 sources) Aldosterone Antagonist Start: 07-30-2025 take 1 tablet by mouth once daily Start: 07-11-2025 End: 07-30-2025 take 1 tablet by mouth once daily Spironolactone 100 mg tablet Discontinued 100 mg PO DAILY July 10, 2025 11:00pm July 30, 2025 10:42am heart Start: 03-06-2025 spironolactone (ALDACTONE) 100 mg tablet 03/06/2025 Active Start: 12-10-2024 End: 12-13-2024 take 100 mg by mouth once daily 100 mg, Oral, DAILY, First dose on Tue12/10/24 at 0900, Until Discontinued, STAT Start: 07-09-2024 End: 07-10-2024 spironolactone (ALDACTONE) t ab 50 mg Start: 04-13-2024 End: 07-20-2025 Start: 03-23-2024 End: 07-11-2025 take 1 tablet by mouth twice daily Spironolactone 50 mg Tablet Discontinued 50 mg PO TWICE A DAY 60 1 June 19, 2024 3:11pm July 11, 2025 7:50am Start: 12-06-2023 End: 12-26-2023 Spironolactone 50 mg tablet Discontinued 30 mg PO DAILY 45 2 December 06, 2023 10:05am December 26, 2023 10:05am Start: 12-06-2023 End: 04-20-2024 take 1 tablet by mouth once daily Spironolactone 100 mg tablet Discontinued 100 mg PO DAILY 30 30 December 05, 2023 11:00pm April 11, 2024 8:54pm Hold if serum potassium more than 5.0. Start: 07-22-2023 End: 12-06-2023 Spironolactone 50 mg tablet Discontinued 75 mg PO DAILY 45 0 November 05, 2023 12:00am December 06, 2023 10:05am Start: 07-21-2023 End: 04-20-2024 take 1 tablet by mouth once daily Spironolactone 50 mg tablet Discontinued 50 mg PO DAILY 30 0 July 20, 2023 11:00pm July 22, 2023 3:13pm Start: 07-21-2023 End: 12-26-2023 Start: 07-21-2023 End: 12-04-2023 take 75 mg by mouth once daily Spironolactone Disconti nued 75 MG PO DAILY 45 30 July 22, 2023 3:07pm October 07, 2023 3:14pm Comment on above: Take 1 tablet by nish once daily. topiramate 50 mg oral tablet (20 sources) Start: 07-11-2025 take 1 tablet by mouth once daily Start: 04-11-2024 End: 07-11-2025 take 2 tablets by mouth once daily Topiramate 50 mg tablet Discontinued 100 mg PO DAILY 30 0 June 19, 2024 3:11pm July 11, 2025 8:49am Start: 03-23-2024 End: 07-10-2024 topiramate (TOPAMAX) 25 mg t ablet 01/22/2025 Active Start: 05-15-2021 End: 12-04-2023 take 1 tablet by mouth twice daily before mealtime Topiramate 100 mg tablet Discontinued 100 mg PO TWICE A DAY May 19, 2022 11:00pm December 04, 2023 7:06pm PER GASTRO BEFORE MEALS Start: 12-24-2013 take 25 mg [...] sources) Serotonin Reuptake Inhibitor Start: 01-23-2025 take 2 tablets by mouth at bedtime as needed for sleep Start: 01-23-2025 take 1 tablet by nish th at bedtime as needed for sleep Start: 01-23-2025 Start: 12-10-2024 End: 12-13-2024 take 50 mg by mouth at bedtime as needed for sleep 50 mg, Oral, AT BEDTIME PRN, Starting on Tue12/10/24 at 0341, Until Tue12/13/24 at 2058, Sleep, STAT Start: 05-20-2022 End: 05-21-2022 take 200 mg by mouth at bedtime Trazodone Discontinued 200 MG PO AT BEDTIME May 20, 2022 12:00am May 21, 2022 12:10pm Start: 06-23-2021 End: 12-04-2023 take 2 tablets by mouth at bedtime Trazodone 100 mg tablet Discontinued 200 mg PO AT BEDTIME May 19, 2022 11:00pm May 21, 2022 11:10am SLEEP Start: 08-05-2018 End: 12-04-2023 take 1 tablet by mouth at bedtime Trazodone 100 mg tablet Discontinued 100 mg PO AT BEDTIME 1 0 May 21, 2022 11:10am December 04, 2023 7:06pm SLEEP Comment on above: 200 mg daily at bedt sherry. Take 1 tablet by nish th daily at bedtime. ursodiol 500 mg oral tablet (4 sources) Bile Acid Start: 05-21-2025 take 1 tablet by mouth three times daily Vitamin C 500 mg oral tablet (3 sources) Start: 03-23-2024 Vitamin C 500 mg oral tablet Dose : 500 mg = 1 tab(s), Oral, qDay Start Date: 03/23/24 Status: Ordered Medication Dispense Status: Completed Total Allowed Fills: 1 Fills Dispensed: 0 Start: 03-23-2024 Vitamin C 500 mg oral [...] MOUTH zolpidem tartrate 10 mg oral tablet (5 sources) gamma-Aminobutyric Acid-ergic Agonist Start: 12-23-2014 Ambien 10 mg oral tablet Dose : 10 mg = 1 tab(s), Oral, qHS, PRN as needed for sleep Start Date: 12/23/14 Status: Ordered Medication Dispense Status: Completed Total Allowed Fills: 1 Fills Dispensed: 0 Start: 12-24-2013 take 5 mg by mouth at bedtime Zolpidem Active 5 MG PO AT BEDTIME December 24, 2013 12:00am Completed/Discontinued Medications Medication Drug Class(es) Dates Sig [...] human 25 % IV solution 50 g albuterol 0.833 mg/ml / ipratropium bromide 0.167 mg/ml inhalation solution (1 source) Anticholinergic, beta2-Adrenergic Agonist Start: 12-10-2024 End: 12-13-2024 take 3 mL by inhalation every six hours as needed 3 mL, Inhalation, EVERY 6 HOURS PRN, Starting on 12/10/24 at 0342, Until Kiersten 12/13/24 at 2058, Wheezing, shortness of breath, STAT amoxicillin 500 mg oral tablet (16 sources) Penicillin-class Antibacterial Start: 06-01-2024 End: 06-06-2024 take 1 tablet by mouth three times daily Amoxicillin 500 mg tablet Discontinued 500 mg PO THREE TIMES A DAY 30 10 0 May 31, 2024 11:00pm June 06, 2024 3:43am amoxicillin 875 mg / clavulanate 125 mg oral tablet (17 sources) Penicillin-class Antibacterial Start: 02-04-2025 End: 03-07-2025 take 1 tablet by mouth every twelve hours Amoxicillin-Pot Clavulanate 875-125 mg tablet Discontinued 875 mg PO Q12H 20 0 February 03, 2025 11:00pm March 07, 2025 2:06pm Start: 10-17-2024 End: 10-24-2024 take 1 tablet by mouth twice daily amoxicillin-pot clavulanate (AUGMENTIN) 875-125 mg per tablet Indications: Acute cystitis without hematuria Take 1 Tablet by mouth Twice a day for 7 days. 14 Tablet 10/17/2024 10/24/2024 Active bacitracin zinc 0.5 unt/mg topical ointment (16 sources) Start: 05-15-2024 End: 01-23-2025 Bacitracin Zinc 500 unit/gra m Ointment Discontinued 1 NMA TOPICAL TWICE A DAY 1 14 0 May 14, 2024 11:00pm January 23, 2025 2:07pm Apply to chin wound and BL foot wounds. Avoid picking skin. Please contact the information source for Protocol details. Start: 05-15-2024 End: 01-23-2025 bacitracin 0.5 unt/mg / neomycin 0.0035 mg/mg / polymyxin b 10 unt/mg topical ointment (4 sources) Aminoglycoside Antibacterial, Polymyxin-class Antibacterial Start: 09-14-2023 End: 09-15-2023 ujepxxpj-hsfprohssy-ymauqhdy n (Neosporin) ointment Start: 09-13-2023 End: 09-13-2023 oxeiztgx-otzcyiqgmu-vuykacwy n (Neosporin) ointment brompheniramine maleate 0.4 mg/ml / dextromethorphan hydrobromide 2 mg/ml / pseudoephedrine hydrochloride 6 mg/ml oral solution (8 sources) alpha-Adrenergic Agonist, Uncompetitive V-wgugfe-H-aspartate Receptor Antagonist, Sigma-1 Agonist Start: 01-11-2022 End: 05-10-2022 take 5-10 mL by mouth every six hours as needed Lfzrcuzmlkjtici-Hccvrabqd-IR (BROMFED DM) 2-30-10 mg/5 mL syrup Take 5-10 ml po q6h prn 120 mL 0 01/11/2022 05/10/2022 Discontinued Comment on above: Take 5-10 ml po q6h prn calcium ascorbate 500 mg oral tablet (20 sources) Start: 12-04-2023 End: 01-23-2025 take 1 tablet by mouth once daily Ascorbate Calcium (Vitamin C) 500 mg tablet Discontinued 500 mg PO DAILY December 04, 2023 12:00am January 23, 2025 2:07pm vitamin 100 ml calcium gluconate 20 mg/ml injection (1 source) Start: 12-10-2024 End: 12-13-2024 2 g, Intravenous, DIRECTE D PRN, Starting on Tue12/10/24 at 0342, Until Tue12/13/24 at 205, Administer over 60 Minutes, STAT, For Calcium less than 7., Other, For Calcium less than 7. cefdinir 300 mg oral capsule (17 sources) Cephalosporin Antibacterial Start: 04-13-2024 End: 05-15-2024 take 1 capsule by mouth twice daily Cefdinir 300 mg capsule Discontinued 300 mg PO TWICE A DAY 14 April 12, 2024 11:00pm May 15, 2024 12:16pm start on 04/13/24 cefTRIAXone (2 sources) Cephalosporin Antibacterial Start: 12-10-2024 End: 12-13-2024 take 2 g intrave nously every twenty- four hours 2 g, Intravenous, EVERY 24 HOURS, 5 doses, First dose on Tue12/10/24 at 0336, Last dose on Tue12/14/24 at 0336, Administer over 30 Minutes, STAT Start: 07-09-2024 End: 07-10-2024 take 1 g intravenously every twenty-four hours cefTRIAXone (ROCEPHIN) injection 1 g cephalexin 500 mg oral capsule (20 sources) Cephalosporin Antibacterial Start: 04-24-2024 End: 05-15-2024 take 1 capsule by mouth every six hours Cephalexin 500 mg capsule Discontinued 500 mg PO EVERY 6 HOURS 40 April 23, 2024 11:00pm May 15, 2024 12:16pm INFECTION Start: 04-24-2024 End: 05-15-2024 Start: 03-23-2024 End: 03-30-2024 cephalexin 500 mg [...] 500 mg PO THREE TIMES A DAY 21 7 0 November 07, 2023 12:00am December 04, 2023 7:07pm Start: 11-07-2023 End: 12-04-2023 Start: 07-22-2023 End: 07-27-2023 take 1 capsule by mouth every eight hours Cephalexin 500 mg capsule Discontinued 500 mg PO Q8H 15 5 0 July 21, 2023 11:00pm July 25, 2023 11:00pm July 26, 2023 11:05pm Start: 07-22-2023 End: 07-27-2023 Start: 05-15-2022 take 500 mg by mouth every six hours Cephalexin Active 500 MG PO EVERY 6 HOURS 40 10 May 15, 2022 12:00am Start: 03-11-2022 End: 03-21-2022 take 1 capsule by mouth three times daily cephALEXin (KEFLEX) 500 mg capsule Indications: Bacterial skin infection Take 1 capsule by mouth three times daily for 10 days. 30 capsule 0 03/11/2022 03/21/2022 Active Comment on above: Take 1 capsule by mo [facility] three times daily for 10 days. cloNIDine hydrochloride 0.1 mg oral tablet (2 [...] as needed for Pain September 14, 2022 12:00am July 20, 2023 6:58pm Start: 01-27-2022 End: 05-10-2022 take 1 tablet by mouth three times daily as needed for pain cyclobenzaprine (FLEXERIL) 10 mg tablet Indications: Chronic midline low back pain with bilateral sciatica Take 1 tablet by mouth three times daily as needed for muscle spasm or pain. 30 tablet 2 01/27/2022 05/10/2022 Discontinued Start: 10-27-2021 take 1 tablet by nish th three times daily as needed for pain cyclobenzaprine (FLEXERIL) 10 mg tablet Indications: Chronic midline low back pain with bilateral sciatica Take 1 tablet by mouth three times daily as needed for muscle spasm or pain. 30 tablet 2 10/27/2021 Active Comment on above: Take 1 tablet by nish th three times daily as needed for muscle spasm or pain. dicyclomine hydrochloride 10 mg oral capsule (20 sources) Anticholinergic Start: 12-07-2023 End: 04-11-2024 Dicyclomine 10 mg Capsule Discontinued 10 mg PO 0730,1130,1630,2200 as needed for abdominal cramps 120 30 2 December 06, 2023 11:00pm April 11, 2024 8:50pm Start: 12-07-2023 End: 04-11-2024 Start: 12-07-2023 Start: 09-10-2023 End: 09-15-2023 take [...] on above: Take 1 capsule by mo [facility] daily at bedtime. doxycycline hyclate 100 mg [...] 100 mg PO TWICE A DAY 10 5 0 July 21, 2023 11:00pm July 25, 2023 11:00pm July 26, 2023 11:05pm Start: 01-27-2023 End: 02-01-2023 take 1 capsule [...] Comment on above: Take 1 tablet by [facility] twice daily for 5 days. Take 1 capsule by [facility] twice daily for 5 days. Take 1 tablet by [facility] two times a day for 7 days. ferrous sulfate 325 mg delayed release oral tablet (20 sources) Start: 07-10-2024 End: 07-10-2024 take 325 mg by mouth once daily 325 mg, Oral, DAILY, First dose on Tue07/10/24 at 0900, Until Discontinued, Routine Start: 12-04-2023 End: 03-13-2025 take 1 tablet by mouth once daily Ferrous Sulfate (Ferosul) 325 mg (65 mg iron) tablet Discontinued 325 mg PO DAILY 30 0 June 19, 2024 3:11pm March 13, 2025 2:57pm supplement Start: 11-24-2023 End: 07-17-2024 take 1 tablet by mouth once daily ferrous sulfate 325 mg (65 mg iron) tablet Take 1 tablet by mouth once daily. 30 tablet 5 01/19/2024 07/17/2024 Active Start: 02-09-2019 take 325 mg by mouth once bridget y Ferrous Sulfate Active 325 MG PO DAILY February 09, 2019 12:00am Comment on above: Take 1 tablet by [facility] once daily. fluconazole 150 mg oral tablet (1 source) Azole Antifungal Start: 2024 End: 2024 take 1 tablet by mouth once fluconazole (DIFLUCAN) 150 mg tablet Indications: Antibiotic-induced yeast infection Take 1 Tablet by mouth One time only for 1 dose. 1 Tablet 11/13/2024 12/13/2024 Discontinued (Stop taking at discharge) FLUoxetine 20 mg oral capsule (1 source) Serotonin Reuptake Inhibitor Start: 2024 End: 2024 take 20 mg by mouth once daily 20 mg, Oral, DAILY, First dose on Tue12/10/24 at 0900, Until Discontinued, STAT gadobenate dimeglumine (MULTIHANCE) injection 20 mL (1 source) Start: 2024 End: 2024 20 mL, Intravenous, Once in imaging, 1 dose, Starting on Tue12/12/24 at 1131, Until Tue12/12/24 at 1131, Routine hydroCHLOROthiazide 25 mg oral tablet (1 source) Thiazide Diuretic Start: 2023 End: 2023 hydroCHLOROthiazide tab 50 mg hydrOXYzine pamoate 25 mg oral capsule (20 sources) Antihistamine Start: 2023 End: 2023 hydrOXYzine pamoate (VISTARIL) cap 25 mg Start: [...] 05/10/2022 Discontinued take 1 tablet by nish th every twelve hours as needed hydrOXYzine hcl (ATARAX) 25 mg tablet Take 25 mg by mouth Twice a day as needed for Itching. Active Comment on above: Take 1 capsule by mo ut three times daily as needed. Take 1 [...] or milk. Start Date: 03/23/24 Status: Ordered Medication Dispense Status: Completed Total Allowed Fills: 1 Fills Dispensed: 0 Start: 06-12-2021 take 800 mg by mouth [...] Intravenous, ONE TIME ONLY, 1 dose, On 12/10/24 at 2145, Routine, (WASTE: [facility]) Start: 09-10-2023 End: 09-10-2023 ketorolac (Toradol) injectio n 15 mg L. Acidophilus-Bifid. Animalis 2 billion cell capsule (1 source) Start: 06-01-2024 End: 06-19-2024 take 2 capsules by mouth once daily L. Acidophilus-Bifid. Animalis 2 billion cell capsule Discontinued 1 NMA PO DAILY 14 14 0 May 31, 2024 11:00pm June 19, 2024 3:09pm L. Acidophilus/Bifid. Animalis 2 billion cell capsule (10 sources) Start: 06-01-2024 End: 06-19-2024 take 2 capsules by mouth once daily L. Acidophilus/Bifid. Animalis 2 billion cell capsule Discontinued 1 NMA PO DAILY 14 14 0 June 01, 2024 12:00am June 19, 2024 4:09pm Start: 06-01-2024 End: 06-19-2024 take 2 capsules by mouth once daily L. Acidophilus/Bifid. Animalis 2 billion cell capsule Discontinued 1 NMA PO DAILY 14 14 June 01, 2024 12:00am June 19, 2024 4:09pm lactobacillus rhamnosus gg [id number] unt oral capsule (1 source) Start: 12-10-2024 [...] A DAY as needed for stomach upset 3000 0 June 19, 2024 3:11pm February 05, 2025 10:59am Start: 09-10-2023 End: 09-15-2023 lactulose (Chronulac) 10 GM/ 15ML solution 20 g Start: 07-22-2023 End: 04-11-2024 Start: 05-21-2022 End: 07-10-2024 Lactulose 20 gram/30 mL solu tion Discontinued 20 g PO THREE TIMES A DAY 2880 30 2 October 07, 2023 3:14pm April 11, 2024 8:51pm liver And adjust the frequency to have him [...] tablet (20 sources) Atypical Antipsychotic Start: End: take 20 mg by mouth once daily [...] to 1.7. melatonin 3 mg oral tablet (20 sources) Start: End: melatonin tab 6 mg Start: 03-23-2024 End: 07-11-2025 take 1 tablet by mouth at bedtime as needed for sleep Melatonin 5 mg tablet Discontinued 5 mg PO AT BEDTIME as needed for sleep April 10, 2024 11:00pm July 11, 2025 8:38am Start: 09-10-2023 End: 09-15-2023 take 3 mg by mouth once daily as needed for sleep 3 mg, Oral, Nightly PRN, sleep, Starting on 09/10/23 at 0547 take 1 tablet by nish th once daily melatonin 5 MG tablet Take 5 mg by mouth Nightly. 0 Active metoclopramide 5 mg oral tablet (17 sources) Dopamine-2 Receptor Antagonist Start: 12-28-2023 End: 04-11-2024 take 1 tablet by mouth every six hours Metoclopramide Hcl 5 mg tablet Discontinued 5 mg PO EVERY 6 HOURS 120 30 1 December 27, 2023 11:00pm April 11, 2024 8:54pm midodrine hydrochloride 10 mg oral tablet (20 sources) alpha-Adrenergic Agonist Start: 06-19-2024 End: 03-13-2025 take 1 tablet by mouth once daily at bedtime Midodrine 10 mg tablet Discontinued 10 mg PO THREE TIMES A DAY 90 0 June 18, 2024 11:00pm March 13, 2025 2:58pm do not give last dose of day after 6PM or within 4 hrs of bedtime Start: 12-07-2023 End: 04-11-2024 take 1 tablet by mouth once daily at bedtime Midodrine 10 mg tablet Discontinued 10 mg PO THREE TIMES A DAY 90 30 2 December 06, 2023 11:00pm April 11, 2024 8:54pm do not give last dose of day after 6PM or within 4 hrs of bedtime Hold if SBP more than 110 mmHg mirtazapine 15 mg disintegrating oral tablet (2 [...] mg tablet Discontinued 20 mg PO DAILY 30 30 2 October 07, 2023 3:14pm December 04, 2023 7:07pm Hold for heart less than 50 or systolic blood pressure less than 100 mmHg. Start: 07-22-2023 End: 12-04-2023 take 1 tablet by mouth once daily Nadolol 20 mg tablet Discontinued 20 mg PO DAILY 30 0 November 05, 2023 12:00am December 04, 2023 7:07pm nitrofurantoin, macrocrystals 25 mg / nitrofurantoin, monohydrate [...] above: Take 1 capsule by mo uth two times a day with meals for 7 days. ondansetron 8 mg disintegrating oral tablet (20 sources) Serotonin-3 Receptor Antagonist Start: 02-09-20 End: 03-13-20 take 1 tablet by mouth every eight hours as needed for nausea and vomiting Ondansetron 8 mg tablet,disintegratin g Discontinued 8 mg PO Q8H as needed for nausea and vomiting 20 0 February 07, 2025 11:00pm March 13, 2025 2:58pm Start: 11-13-2024 take 1 tablet by nish [...] nish th every 8 hours as needed. ondansetron ODT (Zofran-ODT) disintegrating tablet 4 mg (2 sources) Start: 2022 End: 2022 take 1 tablet by mouth every eight hours as needed for nausea and vomiting ondansetron ODT (Zofran-ODT) disintegrating tablet 4 mg oxyCODONE hydrochloride 5 mg oral tablet (17 sources) Opioid Agonist Start: 2024 End: 2024 take 1 tablet by mouth every six hours as needed for pain Oxycodone 5 mg tablet Discontinued 5 mg PO EVERY 6 HOURS as needed for pain 15 4 0 February 08, 2025 July 11, 2025 8:39am Chronic abdominal pain Unspecified abdominal pain Other chronic pain pantoprazole (ProtoNix) 40 mg in sodium chloride (PF) 0.9 % 10 mL injection (2 sources) Start: 2022 End: 2022 40 mg, IntraVENous, Administer over 2 Minutes, Daily before breakfast, First dose on 09/10/23 at 0700, Reconstitute with 10 ml NS. Vial expires 2 hrs after reconstitution. phenazopyridine hydrochloride 200 mg oral tablet (17 sources) Start: 2024 End: 2024 take 1 tablet by mouth three times daily phenazopyridine (PYRIDIUM) 200 mg tablet Indications: Dysuria Take 1 Tablet by mouth Three times a day for 2 days. 6 Tablet 11/13/2024 12/13/2024 Discontinued (Stop taking at discharge) Start: 06-07-2024 End: 06-19-2024 take 1 tablet by mouth three times daily Phenazopyridine (Pyridium) 200 mg tablet Discontinued 200 mg PO THREE TIMES A DAY 6 June 06, 2024 11:00pm June 19, 2024 3:08pm microencapsulated potassium chloride 20 meq extended release [...] mg tablet Discontinued 20 mg PO DAILY 5 September 24, 2023 12:00am October 07, 2023 3:11pm Start: 09-24-2023 End: 10-07-2023 Start: 06-11-2019 take 60 mg by mouth once daily at mealtime Prednisone Active 60 MG PO DAILY June 11, 2019 12:00am With food Comment on above: Take 3 tablets by [facility] once daily for 3 days, THEN 2 tablets once daily for 3 days, THEN 1 tablet once daily for 3 days. rifAXIMin 550 mg oral tablet (20 sources) Rifamycin Antibacterial Start: 4 End: 5 take 1 tablet by mouth twice daily Rifaximin (Xifaxan) 550 mg tablet Discontinued 550 mg PO TWICE A DAY 60 30 6 January 23, 2025 2:38pm May 20, 2025 10:45am sodium bicarbonate 650 mg oral tablet (2 sources) Start: 3 End: 3 sodium bicarbonate tablet 650 mg 125 ml sodium chloride 9 mg/ml prefilled syringe (20 sources) Start: 5 End: 10 mL, Intravenous, EVERY 8 HOURS, First dose on Tue12/10/24 at 0600, Until Discontinued, STAT Start: 12-10-2024 End: 12-13-2024 10 mL, Intravenous, PRN, Sta rting on Tue12/10/24 at 0342, Until Kiersten 12/13/24 at 2058, before and after IV push and IV piggyback medications, STAT Start: 09-13-2023 End: 09-15-2023 sodium chloride ([place]) 0.65 % nasal spray 2 spray Start: 09-10-2023 End: 09-10-2023 take 75 mL intravenously every hour 75 mL/hr, IntraVENous, Continuous, Starting on 09/10/23 at 0600, For 13 hours Start: 09-09-2023 End: 09-09-2023 sodium chloride 0.9 % bolus 1,000 mL Start: 08-21-2021 End: 11-20-2022 sodium chloride 0.9 % (flush ) 10 mL (BD POSIFLUSH) sulfamethoxazole 800 mg / trimethoprim 160 mg oral tablet (20 sources) Dihydrofolate Reductase Inhibitor Antibacterial, Sulfonamide Antimicrobial Start: 06-06-2024 End: 06-06-2024 Sulfamethoxazole-Trimethopri m (Bactrim Ds) 800-160 mg tablet Discontinued 1 {tbl} PO TWICE A DAY 14 7 0 June 05, 2024 11:00pm June 06, 2024 1:17pm Start: 06-06-2024 End: 06-06-2024 Start: 05-15-2024 End: 05-31-2024 Sulfamethoxazole-Trimethopri m (Bactrim Ds) 800-160 mg tablet Discontinued 1 {tbl} PO TWICE A DAY 10 May 14, 2024 11:00pm May 31, 2024 12:21pm Start: 05-15-2024 End: 05-31-2024 Start: 05-15-2022 take 1 tablet by nish twice daily Sulfamethoxazole-Trimethoprim (Bactrim Ds) 800-160 mg tablet Active 1 TABLET PO TWICE A DAY 20 May 15, 2022 12:00am (20 sources) Start: 06-19-2024 End: 03-13-2025 Start: 06-01-2024 End: 06-19-2024 Start: 12-04-2023 End: 06-19-2024 Start: 12-04-2023 Start: 05-20-2022 Problems Active Problems Problem Classification Problem Date [...] site] 02-07-2024 Episodic Calculus of urinary tract (20 sources) Kidney stone; Translations: [Calculus of kidney] Onset: 08-08-20 24 04-19-2024 Episodic Cardiac dysrhythmias (20 sources) Bradycardia; Translations: [Bradycardia, unspecified] 11-10-2023 Episodic Chronic ulcer of skin (20 sources) Ulcer of big toe; Translations: [Non-pressure chronic ulcer of other part of left foot with unspecified severity] 07-20-2023 Chronic Coagulation and hemorrhagic disorders (20 sources) Thrombocytopenic disorder; Translations: [Thrombocytopenia, unspecified] Onset: 11-19-19 24 11-19-2023 Chronic Deficiency and other anemia (1 source) Iron deficiency anemia secondary to blood loss (chronic); Translations: [Iron deficiency anemia secondary to blood loss (chronic)] Onset: 03-13-20 Chronic Deficiency and other anemia (20 sources) Iron deficiency anemia; Translations: [Iron deficiency anemia, unspecified] 07-22-2023 Episodic Deficiency and other anemia (10 sources) Iron deficiency anemia, unspecified; Translations: [Iron deficiency anemia, unspecified] 07-22-2023 Episodic [...] without hemorrhage or perforation] Onset: 12-20-19 Chronic Genitourinary symptoms and ill-defined conditions (20 sources) Aryan hematuria; Translations: [Gross hematuria] Onset: 06-04-20 24 01-31-2024 Episodic Hepatitis (20 sources) Chronic viral hepatitis C; Translations: [Chronic hepatitis C] Onset: 08-04-20 18 10-12-2018 Chronic Hepatitis (1 source) Unspecified viral hepatitis C without hepatic coma; Translations: [Unspecified viral hepatitis C without hepatic coma] Onset: 12-20-19 Episodic Immunizations and screening for infectious disease (1 source) At risk of sexually transmitted infection ; Translations: [Contact with and (suspected) exposure to infections with a predominantly sexual mode of transmission] 05-10-2024 Episodic Intestinal obstruction without hernia (9 sources) Small bowel obstruction; Translations: [Unspecified intestinal obstruction, unspecified as to partial versus complete obstruction] Onset: 09-09-20 23 09-09-2023 Episodic Menopausal disorders (20 sources) Postmenopausal bleeding; Translations: [Postmenopausal bleeding] 02-24-2021 Chronic Mood disorders (20 sources) Major depressive disorder; Translations: [Major depressive disorder, single episode, unspecified] Onset: 04-03-20 07 04-14-2017 Chronic Mycoses (20 sources) Onychomycosis due to dermatophyte ; Translations: [Tinea unguium] Onset: 11-13-1912-07-2023 Episodic Other aftercare (1 source) Admission statuses; Translations: [Encounter for other specified aftercare] Episodic Other connective tissue disease (19 sources) Chronic pain of right foot; Translations: [Pain in right toe(s)] 12-07-2023 Episodic Other connective tissue disease (4 sources) Pain in right toe(s); Translations: [Pain in limb] Onset: 03-28-2012-07-2023 Episodic Other connective tissue disease (1 source) Pain of toe of left foot; Translations: [Pain in left toe(s)] 03-28-2025 Episodic Other connective tissue disease (1 source) Pain of toe of right foot; Translations: [Pain in right toe(s)] 03-28-2025 Episodic Other connective tissue disease (1 source) Plantar fasciitis; Translations: [Plantar fascial fibromatosis] 03-28-2025 Episodic Other connective tissue disease (1 source) Pain in left toe(s); Translations: [Pain in toe of left foot] Onset: 03-28-20 Episodic Other connective tissue disease (1 source) Plantar fascial fibromatosis; Translations: [Plantar fasciitis] Onset: 03-28-20 Episodic Other connective tissue disease (1 source) Pain in left arm; Translations: [Pain in left arm] Onset: 05-13-20 Episodic Other diseases of kidney and ureters (16 sources) Hydroureteronephrosis ; Translations: [Unspecified hydronephrosis] 05-19-2024 Episodic Other diseases of kidney and ureters (16 sources) Hydronephrosis with renal and ureteral calculous obstruction; Translations: [Hydronephrosis with urinary obstruction due to renal calculus] 05-19-2024 Episodic Other diseases of veins and lymphatics (16 sources) Lymphedema of bilateral lower limbs; Translations: [Lymphedema, not elsewhere classified] 06-16-2024 Chronic Other female genital disorders (1 source) History of abnormal cervical Papanicolaou smear ; Translations: [Personal history of other diseases of the female genital tract] 05-10-2024 Episodic Other female genital disorders (1 source) Other specified noninflammatory disorders of vulva and perineum; Translations: [Vulvar lesion] Onset: 08-02-20 Episodic Other gastrointestinal disorders (20 sources) Diarrhea; Translations: [Diarrhea, unspecified] 07-08-2021 Episodic Other gastrointestinal disorders (20 sources) Ascites; Translations: [Other ascites] Onset: 07-17-2007-20-2023 Episodic Other gastrointestinal disorders (20 sources) Other ascites; Translations: [Other ascites] Onset: 11-17-1907-20-2023 Episodic Other gastrointestinal disorders (16 sources) Hepatic ascites; Translations: [Other ascites] 05-23-2024 [...] of liver without mention of alcohol] Onset: 10-04-19 Chronic Other liver diseases (1 source) Chronic [...] Translations: [Hepatic encephalopathy] Episodic Other liver diseases (16 sources) Decompensated cirrhosis of liver; Translations: [Hepatic failure, unspecified without coma] 06-27-2024 Episodic Other liver diseases (16 sources) Increased bilirubin level; Translations: [Unspecified jaundice] 05-03-2024 Episodic Other liver diseases (1 source) Hepatic failure, unspecified without coma; Translations: [Hepatic failure, unspecified without coma] Onset: 07-04-20 Episodic Other nervous system disorders (1 source) Encephalopathy, unspecified; Translations: [Encephalopathy] Onset: 11-17-19 Chronic Other nervous system disorders (13 sources) Metabolic encephalopathy; Translations: [Metabolic encephalopathy] Onset: 09-02-2009-02-2024 Chronic Other nervous system disorders (1 source) Metabolic encephalopathy; Translations: [Metabolic encephalopathy] Onset: 09-02-20 Chronic Other nervous system disorders (2 sources) Other chronic pain; Translations: [Other chronic pain] Onset: 09-01-20 Chronic Other nervous system disorders (1 source) Chronic pain; Translations: [Other chronic pain] Onset: 06-09-20 Chronic Other nutritional; endocrine; and metabolic disorders (20 sources) Hyperammonemia; Translations: [Disorder of urea cycle metabolism, unspecified] Onset: 09-02-2005-23-2022 Chronic Other nutritional; endocrine; and metabolic disorders (4 sources) Disorder of urea cycle metabolism, unspecified; 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] Chronic Other nutritional; endocrine; and metabolic disorders (20 sources) Hyperbilirubinemia; Translations: [Other disorders of bilirubin metabolism] 07-20-2023 Chronic Other nutritional; endocrine; and metabolic disorders (2 sources) Other disorders of bilirubin metabolism; Translations: [Jaundice, unspecified, not of ] 07-20-2023 Chronic Other nutritional; endocrine; and metabolic disorders (13 sources) Hypocalcemia; Translations: [Hypocalcemia] Onset: 09-02-2009-02-2024 Chronic Other nutritional; endocrine; and metabolic disorders (16 sources) Ketosis; Translations: [Other specified metabolic disorders] 06-15-2024 Chronic Other screening for suspected conditions (not mental disorders or infectious disease) (20 sources) Patient encounter status; Translations: [Encounter for screening mammogram for malignant neoplasm of breast] Onset: 09-01-20 Episodic Other skin disorders (1 source) Acne vulgaris; Translations: [Acne vulgaris] Episodic Other skin disorders (19 sources) Dystrophia unguium; 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] 12-07-2023 [...] pollen] 04-20-2024 Chronic Other upper respiratory disease (12 sources) Anterior epistaxis; Translations: [Epistaxis] 02-26-2025 Episodic Other upper respiratory infections (20 sources) Acute upper respiratory infection; Translations: [Acute upper respiratory infection, unspecified] Onset: 11-09-19 Episodic Residual codes; unclassified (20 sources) Medication regimen behavior finding; Translations: [Variable compliance with medication therapy] 11-05-2023 Episodic Residual codes; unclassified (3 sources) Medication adherence variable; Translations: [Variable compliance with medication therapy] 11-13-2023 Episodic Skin and subcutaneous tissue infections (20 sources) Bacterial infection of skin; Translations: [Local infection of the skin and subcutaneous tissue, unspecified] Onset: 03-23-20 Episodic Spondylosis; intervertebral disc disorders; other back problems (2 sources) Degeneration of lumbosacral intervertebral disc; Translations: [Degeneration of intervertebral disc at L5-S1 level] 07-25-2025 Chronic Spondylosis; intervertebral disc disorders; other back problems (20 sources) Low back pain; Translations: [Lumbago] Onset: 02-12-20 08 02-12-2008 Episodic Substance-related disorders (20 sources) History of drug abuse; Translations: [Other psychoactive substance abuse, in remission] Onset: 11-20-1905-23-2022 Chronic Substance-related disorders (5 sources) Substance abuse; Translations: [Other psychoactive substance use, unspecified, uncomplicated] Onset: 09-11-2009-11-2023 Episodic Superficial injury; contusion (20 sources) Abrasion and/or friction burn of face without infection; Translations: [Abrasion of other part of head, initial encounter] 02-24-2021 Episodic Unclassified (7 sources) If you have further issues before seeing palliative care or pain management Unclassified (1 source) Acute cough; Translations: [Acute cough] Onset: 11-09-19 Unclassified (1 source) Low back pain, unspecified; Translations: [Low back pain, unspecified] Onset: 09-01-20 24 Unclassified (2 sources) M54.16 - Radiculopathy, lumbar region Unclassified (1 source) Other intervertebral disc degeneration, lumbosacral region without mention of lumbar back pain or lower extremity pain; Translations: [Other intervertebral disc degeneration, lumbosacral region without mention of lumbar back pain or lower extremity pain] Onset: 07-25-20 Past or Other Problems Problem Classification Problem Date Documented Da te Episodic/Chronic Deficiency and other anemia (20 sources) Chronic anemia; Translations: [Anemia, unspecified] Onset: 11-19-2023 11-19-2023 Episodic Deficiency and other anemia (1 source) Other iron deficiency anemias; Translations: [Other iron deficiency anemias] Onset: 11-08-2024 Episodic E Codes: Adverse effects of medical drugs (1 source) Adverse effect of unspecified systemic antibiotic, initial encounter; Translations: [Adverse effect of unspecified systemic antibiotic, initial encounter] Onset: 11-13-2024 Episodic Malaise and fatigue (20 sources) Physical deconditioning; Translations: [Other malaise] Onset: 12-10-2011 12-10-2011 Episodic Nausea and vomiting (2 sources) Nausea and vomiting; Translations: [Nausea with vomiting, unspecified] Onset: 11-13-2024 12-13-2023 Episodic Noninfectious gastroenteritis (17 sources) Colitis; Translations: [Noninfective gastroenteritis and colitis, unspecified] Onset: 02-19-2025 02-04-2025 Episodic Other circulatory disease (20 sources) Retroperitoneal hemorrhage; Translations: [Hemorrhage, not elsewhere classified] Onset: 08-05-2018 08-05-2018 Episodic Other connective tissue disease (20 sources) Myofascial pain; Translations: [Myalgia, other site] Onset: 12-10-2011 12-10-2011 Episodic Other connective tissue disease (13 sources) Cramp; Translations: [Cramp and spasm] Onset: 09-02-2024 09-02-2024 Episodic Other gastrointestinal disorders (1 source) Splenomegaly, not elsewhere classified; Translations: [Splenomegaly, not elsewhere classified] Onset: 09-11-2024 Episodic Other lower respiratory disease (1 source) Dyspnea, unspecified; Translations: [Dyspnea, unspecified type] Onset: 11-17-2023 Episodic Other lower respiratory disease (1 source) Shortness of breath; Translations: [Shortness of breath] Onset: 04-03-2025 Episodic Other upper respiratory disease (1 source) Epistaxis; Translations: [Epistaxis] Onset: 03-04-2025 Episodic Peritonitis and intestinal abscess (17 sources) Primary bacterial peritonitis; Translations: [Spontaneous bacterial peritonitis] Onset: 03-04-2025 05-30-2024 Episodic Pneumonia (except that caused by tuberculosis or sexually transmitted disease) (20 sources) Community acquired pneumonia; Translations: [Pneumonia, unspecified organism] Onset: 11-19-2023 11-19-2023 Episodic Residual codes; unclassified (20 sources) Insomnia; Translations: [Insomnia, unspecified] Onset: 07-02-2009 07-02-2009 Episodic Residual codes; unclassified (20 sources) Tobacco user; Translations: [Tobacco use] Onset: 04-14-2017 04-14-2017 Episodic Residual codes; unclassified (1 source) Insomnia, unspecified; Translations: [Insomnia, unspecified] Onset: 03-04-2025 Episodic Respiratory failure; insufficiency; arrest (adult) (20 sources) Acute hypoxemic and hypercapnic respiratory failure; Translations: [Acute respiratory failure with hypoxia] Onset: 11-19-2023 11-19-2023 Episodic Septicemia (except in labor) (20 sources) Sepsis; Translations: [Sepsis, unspecified organism] Onset: 11-19-2023 11-19-2023 Episodic Sprains and strains (20 sources) Low back strain; Translations: [Strain of muscle, fascia and tendon of lower back, initial encounter] Onset: 12-10-2011 12-10-2011 Episodic Syncope (1 source) Syncope and collapse; Translations: [Syncope and collapse] Onset: 04-15-2025 Episodic Urinary tract infections (20 sources) Recurrent urinary tract infection; Translations: [Urinary tract infection, site not specified] Onset: 10-17-2024 11-26-2023 Episodic Viral infection (3 sources) Viral disease; Translations: [Viral infection, unspecified] Onset: 11-19-2024 Episodic Results Test Name Value Interpretation Reference Range Facility OV 08-02-2025 CNOV Office Visit ([facility]GY[facility] ) CAROLINA HIGHTOWER ([id number]) 1975 F Date Time Provider Department 08/02/25 7:30 AM ЕКАТЕРИНА SNYDER [facility] During your visit today, we recorded the following information about you: Weight 96.2 kg Екатерина Snyder APRN.CNP 08/02/2025 8:35 AM Signed [facility] [place] [facility] Visit Subjective Recording using [employer] software for draft documentation of the visit was discussed with the patient/authorized footwear sales representative; all questions welcomed and answered. 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 History Comments: Sexual Activity: Yes; Male; btl [...] PAST SURGICAL HISTORY OF 2018 liver bx [facility] FAMILY HISTORY Problem Relation Age of [...] discussed with the Patient or Patient's Authorized Medical Insurance Biller. As applicable, any other physician, advance practice provider, medical student, or other health professional student that will be observing or involved in the sensitive examination for educational or training purposes was discussed with the Patient or Authorized Medical Insurance Biller. The Patient or Authorized Medical Insurance Biller has agreed to proceed with the sensitive examination. (Sensitive examination includes inspection and/or palpation of the breasts, pelvis, prostate and anorectal regions). PHYSICAL EXAM: Wt 212 lb (96.2kg) LMP 11/20/2020 GENERAL: Pleasant; in no apparent distress PULMONARY: normal inspiratory effort : - PELVIC: external genitalia normal, normal Bartholin's glands, urethra, Centre's glands, normal appearing perineal body and perianal region - Patient consent for exam received NEURO: alert and oriented x3 EXTREMITIES: normal SKIN: Multiple superficial purplish lesions, lesions vary in size, with bot (more content not included)... Normal [facility] Hepatitis C Genotypeon 07-28 HEP C GENOTYPE 1a Normal . [facility] Comment on above: Order Comment: Test( s) [id number]-Csyehtgow C Genotypewas developed and its performance characteristicsdetermined by [facility]. It has not been cleared or approvedby the Food and Drug Administration. Result Comment: Perf ormed at: [address] [id number] Director: Tee Reyna PhD, Phone: [phone] at: [address] [id number] Director: Michelle Rose MD, Phone: [phone] Performed By: #### L 100.0100, L501.4700, L500.4050, L500.4100, L501.9985, L7000.8000, L7000.7000, L300.3900, L501.9520 ####[facility] [address] 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 [facility] Comment on above: Order Comment: Test( s) [id number]-Bqchbafhj C Genotypewas developed and its performance characteristicsdetermined by [facility]. It has not been cleared or approvedby the Food and Drug Administration. Result Comment: Resu lt Units: log10 IU/mL Performed By: #### L 100.0100, L501.4700, L500.4050, L500.4100, L501.9985, L7000.8000, L7000.7000, L300.3900, L501.9520 ####[facility] [address] [place], [address] HCV QT RNA PCR 51261 IU/mL Normal . [facility] Comment on above: Order Comment: Test( s) [id number]-Kgsfczsrl C Genotypewas developed and its performance characteristicsdetermined by [facility]. It has not been cleared or approvedby the Food and Drug Administration. Performed By: #### L 100.0100, L501.4700, L500.4050, L500.4100, L501.9985, L7000.8000, L7000.7000, L300.3900, L501.9520 ####[facility] [address] [place], [address] TEST INFO: Comment Normal . [facility] Comment on above: Order Comment: Test( s) [id number]-Uqzdaavvy C Genotypewas developed and its performance characteristicsdetermined by [facility]. It has not been cleared or approvedby the Food and Drug Administration. Result Comment: The quantitative range of this assay is 15 IU/mL to 100million IU/mL. Performed By: #### L 100.0100, L501.4700, L500.4050, L500.4100, L501.9985, L7000.8000, L7000.7000, L300.3900, L501.9520 ####[facility] [address] [place], [address] Absolute lymphocyte countOrd ered By: Son Adams on 07-25-2025 Lymphocytes Auto (Unsp spec) [#/Vol] 1.52 10*3/uL 0.83-4.51 [facility] Absolute neutrophil countOrd ered By: Son Adams on 07-25-2025 Neutrophils (Bld) [#/Vol] 4.5 10*3/uL 2.0-7.7 [facility] Anion gap in Serum or Plasma Ordered By: Son Adams on 07-25-2025 Anion gap [Moles/Vol] 6 mmol/L 5- [facility] Automated lymphocyte count a s percentage of total leukocytesOrdered By: Son Adams on 07-25-2025 Lymphocytes/100 WBC Auto (Unsp spec) 21.8 % [facility] BUN/creatinine ratioOrdered By: Son Adams on 07-25-2025 Urea nitrogen/Creatinine [Mass ratio] 11.6 mg/mg 07-15 [facility] Basophil percentageOrdered B y: Son Adams on 07-25-2025 Basophils/100 WBC (Bld) 0.4 % 0- [facility] Bilirubin directOrdered By: Son Adams on 07-25-2025 Bilirubin.direct [Mass/Vol] 1.48 mg/dL High 0.00-0.30 [facility] Bilirubin, Directon 07-25-20 25 Bilirubin.direct [Mass/Vol] 1.48 mg/dL High 0.00-0.30 [facility] Comment on above: Performed By: #### L 100.0100, L501.4700, L500.4050, L500.4100, L501.9985, L7000.8000, L7000.7000, L300.3900, L501.9520 ####[facility] [address] [place], [place], [phone] Bilirubin, totalOrdered By: Son Adams on 07-25-2025 Bilirubin [Mass/Vol] 2.07 mg/dL High 0.00-1.30 [facility] CBC W/Diff, Automatedon 06-28 Absolute Lymph 1.52 X10 3/uL Normal 0.83-4.51 [facility] Comment on above: Performed By: #### L 100.0100, L501.4700, L500.4050, L500.4100, L501.9985, L7000.8000, L7000.7000, L300.3900, L501.9520 ####[facility] [address] [place], [place], [phone] Absolute Neut 4.5 X10 3/uL Normal 2.0-7.7 [facility] Comment on above: Performed By: #### L 100.0100, L501.4700, L500.4050, L500.4100, L501.9985, L7000.8000, L7000.7000, L300.3900, L501.9520 ####[facility] [address] [place], [place], [phone] Basophils/100 WBC (Bld) 0.4 % Normal 0-1 [facility] Comment on above: Performed By: #### L 100.0100, L501.4700, L500.4050, L500.4100, L501.9985, L7000.8000, L7000.7000, L300.3900, L501.9520 ####[facility] [address] [place], [place], [phone] Eosinophils/100 WBC (Bld) 3.6 % Normal 0-5 [facility] Comment on above: Performed By: #### L 100.0100, L501.4700, L500.4050, L500.4100, L501.9985, L7000.8000, L7000.7000, L300.3900, L501.9520 ####[facility] [address] [place], [place], [phone] Erythrocyte distribution width (RBC) [Ratio] 17.3 % High 11.6-14.6 [facility] Comment on above: Performed By: #### L 100.0100, L501.4700, L500.4050, L500.4100, L501.9985, L7000.8000, L7000.7000, L300.3900, L501.9520 ####[facility] [address] [place], [address] Hematocrit (Bld) [Volume fraction] 31.1 % Low 37-47 [facility] Comment on above: Performed By: #### L 100.0100, L501.4700, L500.4050, L500.4100, L501.9985, L7000.8000, L7000.7000, L300.3900, L501.9520 ####[facility] [address] [place], [address] Hemoglobin (Bld) [Mass/Vol] 10.2 g/dL Low 12.0-15.0 [facility] Comment on above: Performed By: #### L 100.0100, L501.4700, L500.4050, L500.4100, L501.9985, L7000.8000, L7000.7000, L300.3900, L501.9520 ####[facility] [address] [place], [place], [phone] IG% 0.400 Normal 0.0-0.9 [facility] Comment on above: Result Comment: IG% - Immature Granulocytes (promyelocytes, myelocytes andmetamyelocytes) > 1% indicates that a LEFT SHIFT is Present. Performed By: #### L 100.0100, L501.4700, L500.4050, L500.4100, L501.9985, L7000.8000, L7000.7000, L300.3900, L501.9520 ####[facility] [address] [place], [address] Lymphocytes/100 WBC (Bld) 21.8 % Normal 19-41 [facility] Comment on above: Performed By: #### L 100.0100, L501.4700, L500.4050, L500.4100, L501.9985, L7000.8000, L7000.7000, L300.3900, L501.9520 ####[facility] [address] [place], [address] MCH (RBC) [Entitic mass] 28.7 pg Normal 27.0-32.0 [facility] Comment on above: Performed By: #### L 100.0100, L501.4700, L500.4050, L500.4100, L501.9985, L7000.8000, L7000.7000, L300.3900, L501.9520 ####[facility] [address] [place], [address] MCHC (RBC) [Mass/Vol] 32.8 g/dL Normal 32-[address] [facility] Comment on above: Performed By: #### L 100.0100, L501.4700, L500.4050, L500.4100, L501.9985, L7000.8000, L7000.7000, L300.3900, L501.9520 ####[facility] [address] [place], [address] MCV (RBC) [Entitic vol] 87.6 fL Normal 81-99 [facility] Comment on above: Performed By: #### L 100.0100, L501.4700, L500.4050, L500.4100, L501.9985, L7000.8000, L7000.7000, L300.3900, L501.9520 ####[facility] [address] [place], [address] Monocytes/100 WBC (Bld) 9.3 % Normal 0-10 [facility] Comment on above: Performed By: #### L 100.0100, L501.4700, L500.4050, L500.4100, L501.9985, L7000.8000, L7000.7000, L300.3900, L501.9520 ####[facility] [address] [place], [address] Neutrophils/100 WBC (Bld) 64.5 % Normal 47-70 [facility] Comment on above: Performed By: #### L 100.0100, L501.4700, L500.4050, L500.4100, L501.9985, L7000.8000, L7000.7000, L300.3900, L501.9520 ####[facility] [address] [place], [address] Nucleated RBC (Bld) [#/Vol] 0 10*3/uL Normal 0-5 [facility] Comment on above: Performed By: #### L 100.0100, L501.4700, L500.4050, L500.4100, L501.9985, L7000.8000, L7000.7000, L300.3900, L501.9520 ####[facility] [address] [place], [place], [phone] Platelet mean volume (Bld) [Entitic vol] 11.0 fL Normal 6.2-12.0 [facility] Comment on above: Performed By: #### L 100.0100, L501.4700, L500.4050, L500.4100, L501.9985, L7000.8000, L7000.7000, L300.3900, L501.9520 ####[facility] [address] [place], [place], [phone]) Platelets (Bld) [#/Vol] 68 10*3/uL Low 150-450 [facility] Comment on above: Performed By: #### L 100.0100, L501.4700, L500.4050, L500.4100, L501.9985, L7000.8000, L7000.7000, L300.3900, L501.9520 ####[facility] [address] [place], [address] RBC (Bld) [#/Vol] 3.55 10*6/uL Low 4.2-5.4 [facility] Comment on above: Performed By: #### L 100.0100, L501.4700, L500.4050, L500.4100, L501.9985, L7000.8000, L7000.7000, L300.3900, L501.9520 ####[facility] [address] [place], [place], [phone] RDW SD 55.1 fl High 35.1-43.9 [facility] Comment on above: Performed By: #### L 100.0100, L501.4700, L500.4050, L500.4100, L501.9985, L7000.8000, L7000.7000, L300.3900, L501.9520 ####[facility] [address] [place], [place], [phone] WBC (Bld) [#/Vol] 7.0 10*3/uL Normal 4.4-11.0 [facility] Comment on above: Performed By: #### L 100.0100, L501.4700, L500.4050, L500.4100, L501.9985, L7000.8000, L7000.7000, L300.3900, L501.9520 ####[facility] [address] [facility]. [place], [place], [phone] Calculated very low density lipoprotein (VLDL) cholesterol measurementOrdered By: Son Adams on 07-25-2025 Calculated very low density lipoprotein (VLDL) cholesterol measurement 12 mg/dL 5-40 [facility] Carbon dioxide, total [Moles /volume] in Central venous bloodOrdered By: Son Adams on 07-25-2025 CO2 [Moles/Vol] 21.9 mmol/L 21.0-32.0 [facility] Chloride assayOrdered By: Darshana Adams on 07-25-2025 Chloride [Moles/Vol] 106 mmol/L 98-108 [facility] Comprehensive Metabolic Prof ilon 07-25-2025 Albumin [Mass/Vol] 3.1 g/dL Low 3.5-5.0 [facility] Comment on above: Performed By: #### L 100.0100, L501.4700, L500.4050, L500.4100, L501.9985, L7000.8000, L7000.7000, L300.3900, L501.9520 ####[facility] [address] [place], [place], [phone] Albumin/Globulin [Mass ratio] 0.8 {ratio} Low 0.9-2.4 [facility] Comment on above: Performed By: #### L 100.0100, L501.4700, L500.4050, L500.4100, L501.9985, L7000.8000, L7000.7000, L300.3900, L501.9520 ####[facility] [address] [place], [place], [phone] ALK PHOS 129 U/L High 35-104 [facility] Comment on above: Performed By: #### L 100.0100, L501.4700, L500.4050, L500.4100, L501.9985, L7000.8000, L7000.7000, L300.3900, L501.9520 ####[facility] [address] [place], [place], [phone] ALT [Catalytic activity/Vol] 63 U/L High <=34 [facility] Comment on above: Performed By: #### L 100.0100, L501.4700, L500.4050, L500.4100, L501.9985, L7000.8000, L7000.7000, L300.3900, L501.9520 ####[facility] [address] [place], [place], [phone]) AST [Catalytic activity/Vol] 91 U/L High <=31 [facility] Comment on above: Performed By: #### L 100.0100, L501.4700, L500.4050, L500.4100, L501.9985, L7000.8000, L7000.7000, L300.3900, L501.9520 ####[facility] [address] [place], [address] Bilirubin [Mass/Vol] 2.07 mg/dL High 0.00-1.30 [facility] Comment on above: Performed By: #### L 100.0100, L501.4700, L500.4050, L500.4100, L501.9985, L7000.8000, L7000.7000, L300.3900, L501.9520 ####[facility] [address] [place], [address] BUN/CRE 11.6 RATIO Normal 10-20 [facility] Comment on above: Performed By: #### L 100.0100, L501.4700, L500.4050, L500.4100, L501.9985, L7000.8000, L7000.7000, L300.3900, L501.9520 ####[facility] [address] [place], [address] Calcium [Mass/Vol] 9.1 mg/dL Normal 7.6-11.0 [facility] Comment on above: Performed By: #### L 100.0100, L501.4700, L500.4050, L500.4100, L501.9985, L7000.8000, L7000.7000, L300.3900, L501.9520 ####[facility] [address] [place], [address] Chloride [Moles/Vol] 106 mmol/L Normal 98-108 [facility] Comment on above: Performed By: #### L 100.0100, L501.4700, L500.4050, L500.4100, L501.9985, L7000.8000, L7000.7000, L300.3900, L501.9520 ####[facility] [address] [place], [address] CO2 [Moles/Vol] 21.9 mmol/L Normal 21.0-32.0 [facility] Comment on above: Performed By: #### L 100.0100, L501.4700, L500.4050, L500.4100, L501.9985, L7000.8000, L7000.7000, L300.3900, L501.9520 ####[facility] [address] [place], [place], [id number] Creatinine [Mass/Vol] 0.89 mg/dL Normal 0.70-1.[address] [facility] Comment on above: Performed By: #### L 100.0100, L501.4700, L500.4050, L500.4100, L501.9985, L7000.8000, L7000.7000, L300.3900, L501.9520 ####[facility] [address] [place], [place], [phone] GAP 6 Normal 5-15 [facility] Comment on above: Performed By: #### L 100.0100, L501.4700, L500.4050, L500.4100, L501.9985, L7000.8000, L7000.7000, L300.3900, L501.9520 ####[facility] [address] [place], [place], [phone] GFR/1.73 sq M.predicted among non-blacks MDRD (S/P/Bld) [Vol rate/Area] 79 mL/min/{1.73_m2} Normal >60 [facility] Comment on above: Result Comment: mL/m in/1.73m2 CKD-EPI Creatinine Equation (2020) Performed By: #### L 100.0100, L501.4700, L500.4050, L500.4100, L501.9985, L7000.8000, L7000.7000, L300.3900, L501.9520 ####[facility] [address] [place], [address] Globulin (S) [Mass/Vol] 3.9 g/dL Normal 2.2-4.2 [facility] Comment on above: Performed By: #### L 100.0100, L501.4700, L500.4050, L500.4100, L501.9985, L7000.8000, L7000.7000, L300.3900, L501.9520 ####[facility] [address] [place], [address] Glucose [Mass/Vol] 115 mg/dL High 70-99 [facility] Comment on above: Performed By: #### L 100.0100, L501.4700, L500.4050, L500.4100, L501.9985, L7000.8000, L7000.7000, L300.3900, L501.9520 ####[facility] [address] [place], [address] Potassium [Moles/Vol] 4.1 mmol/L Normal 3.3-5.[address] [facility] Comment on above: Performed By: #### L 100.0100, L501.4700, L500.4050, L500.4100, L501.9985, L7000.8000, L7000.7000, L300.3900, L501.9520 ####[facility] [address] [place], [address] Sodium [Moles/Vol] 134 mmol/L Normal 133-145 [facility] Comment on above: Performed By: #### L 100.0100, L501.4700, L500.4050, L500.4100, L501.9985, L7000.8000, L7000.7000, L300.3900, L501.9520 ####[facility] [address] [place], [place], [address] T PROT 7.0 g/dL Normal 5.9-8.4 [facility] Comment on above: Performed By: #### L 100.0100, L501.4700, L500.4050, L500.4100, L501.9985, L7000.8000, L7000.7000, L300.3900, L501.9520 ####[facility] [address] [place], [address] Urea nitrogen [Mass/Vol] 10 mg/dL Normal 4-19 [facility] Comment on above: Performed By: #### L 100.0100, L501.4700, L500.4050, L500.4100, L501.9985, L7000.8000, L7000.7000, L300.3900, L501.9520 ####[facility] [address] [place], [address] Eosinophil percentageOrdered By: Son Adams on 07-25-2025 Eosinophils/100 WBC (Bld) 3.6 % 0-5 [facility] Erythrocyte distribution wid th ratioOrdered By: Son Adams on 07-25-2025 Erythrocyte distribution width (RBC) [Ratio] 17.3 % High 11.6-14.6 [facility] Erythrocyte distribution wid th standard deviationOrdered By: Son Adams on 07-25-2025 Erythrocyte distribution width (RBC) [Ratio] 55.1 fl High 35.1-43.9 [facility] Gastroenterology Visit Repor ton 07-25-2025 Gastroenterology Visit Report Normal [facility] Glomerular filtration rate ( GFR) estimation/1.73 sq m using serum, plasma, or whole bOrdered By: Son Adams on 07-25-2025 GFR/1.73 sq M.predicted among non-blacks MDRD (S/P/Bld) [Vol rate/Area] 79 mL/min/{1.73_m2} >60 [facility] Comment on above: mL/min/1.73m2 CKD-EP I Creatinine Equation (2020) Hematocrit Auto (Bld) [Volum e fraction]Ordered By: Son Adams on 07-25-2025 Hematocrit (Bld) [Volume fraction] 31.1 % Low 37-47 [facility] Hemoglobin A1con 07-25-2025 HbA1c (Bld) [Mass fraction] 4.8 % Normal <=5.6 [facility] Comment on above: Result Comment: Norm al < 5.7 % Prediabetic 5.7 - 6.4 % Diabetic >or= 6.5 % Please note range changes. Performed By: #### L 100.0100, L501.4700, L500.4050, L500.4100, L501.9985, L7000.8000, L7000.7000, L300.3900, L501.9520 ####[facility] [address] [place], [place], [phone] Hemoglobin A1c percentageOrd ered By: Son Adams on 07-25-2025 HbA1c (Bld) [Mass fraction] 4.8 % <5.7 [facility] Comment on above: Normal < 5.7 % Predi abetic 5.7 - 6.4 % Diabetic >or= 6.5 % Please note range changes. Hemoglobin measurementOrdere d By: Son Adams on 07-25-2025 Hemoglobin (Bld) [Mass/Vol] 10.2 g/dL Low 12.0-15.0 [facility] Immature granulocytes/100 WB C Auto (Bld)Ordered By: Son Adams on 07-25-2025 Immature granulocytes/100 WBC (Bld) 0.400 % 0.0-0.9 [facility] Comment on above: IG% - Immature Granu locytes (promyelocytes, myelocytes and metamyelocytes) > 1% indicates that a LEFT SHIFT is Present. International normalized rat io (INR) calculationOrdered By: Son Adams on 07-25-2025 INR Coag (Bld) [Relative time] 1.5 {INR} [facility] L/S Spine Bending Flex/[place] 07-25-2025 L/S Spine Bending Flex/Ext Normal [facility] LDL calc ser/plasOrdered By: Son Adams on 07-25-2025 Cholesterol in LDL [Mass/Vol] 25 mg/dL [facility] Comment on above: Ijvmznuddp=158-957 m g/dL & Higher Xjzo=191 mg/dL or greaterSampson Equation 2020 for LDL-C Laboratory - Chemistry and C hemistry - challengeOrdered By: Son Adams on 07-25-2025 AST [Catalytic activity/Vol] 91 U/L High <32 [facility] Lipid Profileon 07-25-2025 CHOL:HDL 2.40 Normal [facility] Comment on above: Performed By: #### L 100.0100, L501.4700, L500.4050, L500.4100, L501.9985, L7000.8000, L7000.7000, L300.3900, L501.9520 ####[facility] [address] [place], [place], [phone](902) Cholesterol [Mass/Vol] 68 mg/dL Normal <=200 [facility] Comment on above: Result Comment: Chol esterol level, Desirable <200 mg/dLBorderline high cholesterol 200-239 mg/dLHigh cholesterol >=240 mg/dLRecommendations of the NCEP Adult Treatment Panel for thefollowing risk-cutoff thresholds for the [place] Americanpopulation. Performed By: #### L 100.0100, L501.4700, L500.4050, L500.4100, L501.9985, L7000.8000, L7000.7000, L300.3900, L501.9520 ####[facility] [address] [place], [place], [phone] Cholesterol in HDL [Mass/Vol] 28 mg/dL Low [facility] Comment on above: Result Comment: Evelyn onal Cholesterol Education Program (NCEP) guidelines:<40 mg/dL: Low HDL-cholesterol (major risk factor for CHD)>= 60 mg/dL: High HDL-cholesterol (negative risk factor forCHD)HDL-cholesterol is affected by a number of factors, e.g.smoking, exercise, hormones, sex and age. Performed By: #### L 100.0100, L501.4700, L500.4050, L500.4100, L501.9985, L7000.8000, L7000.7000, L300.3900, L501.9520 ####[facility] [address] [place], [address] Cholesterol in LDL [Mass/Vol] 25 mg/dL Normal [facility] Comment on above: Result Comment: Bord kqeynp=809-180 mg/dL Higher Pkuf=433 mg/dL or greaterSampson Equation 2020 for LDL-C Performed By: #### L 100.0100, L501.4700, L500.4050, L500.4100, L501.9985, L7000.8000, L7000.7000, L300.3900, L501.9520 ####[facility] [address] [place], [place], [phone] Cholesterol in VLDL [Mass/Vol] 12 mg/dL Normal 5-40 [facility] Comment on above: Performed By: #### L 100.0100, L501.4700, L500.4050, L500.4100, L501.9985, L7000.8000, L7000.7000, L300.3900, L501.9520 ####[facility] [address] [place], [address] Triglyceride [Mass/Vol] 60 mg/dL Normal [facility] Comment on above: Result Comment: The drugs N-Acetylcysteine and Metamizole may falselydepress this assay.Normal range: <150 mg/dLBorderline High: 150-199 mg/dLHigh: 200-499 mg/dLVery High: >500 mg/dL Performed By: #### L 100.0100, L501.4700, L500.4050, L500.4100, L501.9985, L7000.8000, L7000.7000, L300.3900, L501.9520 ####[facility] [address] [place], [address] MCV (mean corpuscular volume ) determinationOrdered By: Son Adams on 07-25-2025 MCV (RBC) [Entitic vol] 87.6 fL 81-99 [facility] Mean corpuscular hemoglobin (MCH) determinationOrdered By: Son Adams on 07-25-2025 MCH (RBC) [Entitic mass] 28.7 pg 27.0-32.0 [facility] Mean corpuscular hemoglobin concentration (MCHC) determinationOrdered By: Son Adams on 07-25-2025 MCHC (RBC) [Mass/Vol] 32.8 g/dL 32-[address] [facility] Mean platelet volume determi nationOrdered By: Son Adams on 07-25-2025 Platelet mean volume (Bld) [Entitic vol] 11.0 fL 6.2-12.0 [facility] Monocyte percentageOrdered B y: Son Adams on 07-25-2025 Monocytes/100 WBC (Bld) 9.3 % 0-10 [facility] Neutrophil percentageOrdered By: Son Adams on 07-25-2025 Neutrophils/100 WBC (Bld) 64.5 % 47-70 [facility] No Panel InformationOrdered By: Son Adams on 07-25-2025 Addendum Document Comment . [facility] Comment on above: The quantitative ran ge of this assay is 15 IU/mL to 100million IU/mL. Nucleated red blood cell per centageOrdered By: Son Adams on 07-25-2025 Nucleated RBC/100 WBC (Bld) [Ratio] 0 % 0-5 [facility] Orthopedic Visit Reporton Orthopedic Visit Report Normal [facility] Platelet countOrdered By: Darshana Adams on 07-25-2025 Platelets (Bld) [#/Vol] 68 10*3/uL Low 150-450 [facility] Potassium measurement (mass/ volume)Ordered By: Son Adams on 07-25-2025 Potassium (Unsp spec) [Mass/Vol] 4.1 mmol/L 3.3-5.1 [facility] [facility] Prothrombin Time w/INRon INR Coag (PPP) [Relative time] 1.5 {INR} Normal [facility] Comment on above: Performed By: #### L 100.0100, L501.4700, L500.4050, L500.4100, L501.9985, L7000.8000, L7000.7000, L300.3900, L501.9520 ####[facility] [address] [place], [place], [id number] PT Coag (PPP) [Time] 18.8 s High 11.7-14.9 [facility] Comment on above: Performed By: #### L 100.0100, L501.4700, L500.4050, L500.4100, L501.9985, L7000.8000, L7000.7000, L300.3900, L501.9520 ####[facility] [address] [place], [place], [id number] Prothrombin timeOrdered By: Son Adams on 07-25-2025 PT Coag (PPP) [Time] 18.8 s High 11.7-14.9 [facility] RBC Auto (Bld) [#/Vol]Ordere d By: Son Adams on 07-25-2025 RBC (Bld) [#/Vol] 3.55 10*6/uL Low 4.2-5.4 [facility] Screening total cholesterol/ high density lipoprotein (HDL) cholesterol ratioOrdered By: Son Adams on 07-25-2025 Cholesterol.total/Chol esterol in HDL [Mass ratio] 2.40 {ratio} [facility] Serum creatinine measurement (mass/volume)Ordered By: Son Adams on 07-25-2025 Creatinine [Mass/Vol] 0.89 mg/dL 0.70-1.[address] [facility] Serum globulin measurementOr dered By: Son Adams on 07-25-2025 Globulin (S) [Mass/Vol] 3.9 g/dL 2.2-4.2 [facility] Serum glucose measurement (m ass/volume)Ordered By: Son Adams on 07-25-2025 Glucose [Mass/Vol] 115 mg/dL High 70-99 [facility] Serum or plasma alanine rick otransferase (ALT) measurementOrdered By: Son Adams on 07-25-2025 ALT [Catalytic activity/Vol] 63 U/L High <35 [facility] Serum or plasma albumin latrice urement (mass/volume)Ordered By: Son Adams on 07-25-2025 Albumin [Mass/Vol] 3.1 g/dL Low 3.5-5.0 [facility] Serum or plasma albumin/glob ulin mass ratioOrdered By: Son Adams on 07-25-2025 Albumin/Globulin [Mass ratio] 0.8 {ratio} Low 0.9-2.4 [facility] Serum or plasma alkaline minda sphatase measurementOrdered By: Son Adams on 07-25-2025 ALP [Catalytic activity/Vol] 129 U/L High 35-104 [facility] Serum or plasma calcium latrice urement (mass/volume)Ordered By: Son Adams on 07-25-2025 Calcium [Mass/Vol] 9.1 mg/dL 7.6-11.0 [facility] Serum or plasma cholesterol in HDL measurement (mass/volume)Ordered By: Son Adams on 07-25-2025 Cholesterol in HDL [Mass/Vol] 28 mg/dL Low >40 [facility] Comment on above: National Cholesterol Education Program (NCEP) guidelines:<40 mg/dL: Low HDL-cholesterol (major risk factor for CHD)>= 60 mg/dL: High HDL-cholesterol (negative risk factor for CHD)HDL-cholesterol is affected by a number of factors, e.g. smoking, exercise, hormones, sex and age. Serum or plasma cholesterol measurement (mass/volume)Ordered By: Son Adams on 07-25-2025 Cholesterol [Mass/Vol] 68 mg/dL <201 [facility] Comment on above: Cholesterol level, D esirable <200 mg/dLBorderline high cholesterol 200-239 mg/dLHigh cholesterol >=240 mg/dLRecommendations of the NCEP Adult Treatment Panel for the following risk-cutoff thresholds for the [place] population. Serum or plasma hepatitis C virus RNA measurement by probe and target amplification mOrdered By: Son Adams on 07-25-2025 [place] [address] IU/mL . [facility] Serum or plasma urea nitroge n measurement (mass/volume)Ordered By: Son Adams on 07-25-2025 Urea nitrogen [Mass/Vol] 10 mg/dL 4-19 [facility] Sodium levelOrdered By: Leticia Adams on 07-25-2025 Sodium [Moles/Vol] 134 mmol/L 133-145 [facility] TSH DL <= 0.005 mIU/L QnOrde red By: Son Adams on 07-25-2025 TSH Qn 3.330 uIU/mL 0.300-4.200 [facility] Thyroid Stim Hormone (TSH)on 07-25-2025 TSH 3.330 uIU/mL Normal 0.300-4.200 [facility] Comment on above: Performed By: #### L 100.0100, L501.4700, L500.4050, L500.4100, L501.9985, L7000.8000, L7000.7000, L300.3900, L501.9520 ####[facility] [address] [place], [place], [id number] Total proteinOrdered By: Alyson Adams on 07-25-2025 Protein [Mass/Vol] 7.0 g/dL 5.9-8.4 [facility] Triglycerides measurementOrd ered By: Son Adams on 07-25-2025 Triglyceride [Mass/Vol] 60 mg/dL <199 [facility] Comment on above: The drugs N-Acetylcy steine and Metamizole may falsely depress this assay. Normal range: <150 mg/dLBorderline High: 150-199 mg/dLHigh: 200-499 mg/dLVery High: >500 mg/dL White blood cell (WBC) count Ordered By: Son Adams on 07-25-2025 WBC (Bld) [#/Vol] 7.0 10*3/uL 4.4-11.0 [facility] Abdomen Limitedon 07-16-2025 Abdomen Limited Normal [facility] Absolute lymphocyte countOrd ered By: Timoteo Gardiner on 07-15-2025 Lymphocytes Auto (Unsp spec) [#/Vol] 1.06 10*3/uL 0.83-4.51 [facility] Absolute neutrophil countOrd ered By: Timoteo Gardiner on 07-15-2025 Neutrophils (Bld) [#/Vol] 5.2 10*3/uL 2.0-7.7 [facility] Anion gap in Serum or Plasma Ordered By: Timoteo Gardiner on 07-15-2025 Anion gap [Moles/Vol] 8 mmol/L 02-[address] [facility] Automated lymphocyte count a s percentage of total leukocytesOrdered By: Timoteo Gardiner on 07-15-2025 Lymphocytes/100 WBC Auto (Unsp spec) 14.2 % Low [facility] BUN/creatinine ratioOrdered By: Timoteo Gardiner on 07-15-2025 Urea nitrogen/Creatinine [Mass ratio] 5.8 mg/mg Low 07-15 [facility] Basophil percentageOrdered B y: Timoteo Gardiner on 07-15-2025 Basophils/100 WBC (Bld) 0.5 % 0-1 [facility] Bilirubin Test strip Ql (U)O rdered By: Timoteo Gardiner on 07-15-2025 Bilirubin Ql (U) 1 mg/dL High Negative [facility] Comment on above: COLOR OF URINE MAY A FFECT DIPSTICK RESULTS. Bilirubin, totalOrdered By: Tmioteo Gardiner on 07-15-2025 Bilirubin [Mass/Vol] 2.12 mg/dL High 0.00-1.30 [facility] CBC W/Diff, Automatedon 06-27 Absolute Lymph 1.06 X10 3/uL Normal 0.83-4.51 [facility] Comment on above: Performed By: #### L 100.0100, L501.2450, L700.6800, L500.4050 ####[facility] [address] [place], [address] Absolute Neut 5.2 X10 3/uL Normal 2.0-7.7 [facility] Comment on above: Performed By: #### L 100.0100, L501.2450, L700.6800, L500.4050 ####[facility] [address] [place], [address] Basophils/100 WBC (Bld) 0.5 % Normal 0-1 [facility] Comment on above: Performed By: #### L 100.0100, L501.2450, L700.6800, L500.4050 ####[facility] [address] [place], [address] Eosinophils/100 WBC (Bld) 3.9 % Normal 0-5 [facility] Comment on above: Performed By: #### L 100.0100, L501.2450, L700.6800, L500.4050 ####[facility] [address] [place], [address] Erythrocyte distribution width (RBC) [Ratio] 17.4 % High 11.6-14.6 [facility] Comment on above: Performed By: #### L 100.0100, L501.2450, L700.6800, L500.4050 ####[facility] [address] [place], [address] Hematocrit (Bld) [Volume fraction] 33.2 % Low 37-47 [facility] Comment on above: Performed By: #### L 100.0100, L501.2450, L700.6800, L500.4050 ####[facility] [address] [place], [address] Hemoglobin (Bld) [Mass/Vol] 11.1 g/dL Low 12.0-15.0 [facility] Comment on above: Performed By: #### L 100.0100, L501.2450, L700.6800, L500.4050 ####[facility] [address] [place], [address] IG% 0.400 Normal 0.0-0.9 [facility] Comment on above: Result Comment: IG% - Immature Granulocytes (promyelocytes, myelocytes andmetamyelocytes) > 1% indicates that a LEFT SHIFT is Present. Performed By: #### L 100.0100, L501.2450, L700.6800, L500.4050 ####[facility] [address] [place], [address] Lymphocytes/100 WBC (Bld) 14.2 % Low 19-41 [facility] Comment on above: Performed By: #### L 100.0100, L501.2450, L700.6800, L500.4050 ####[facility] [address] [place], [address] MCH (RBC) [Entitic mass] 29.2 pg Normal 27.0-32.0 [facility] Comment on above: Performed By: #### L 100.0100, L501.2450, L700.6800, L500.4050 ####[facility] [address] [place], [address] MCHC (RBC) [Mass/Vol] 33.4 g/dL Normal 32-[address] [facility] Comment on above: Performed By: #### L 100.0100, L501.2450, L700.6800, L500.4050 ####[facility] [address] [place], [address] MCV (RBC) [Entitic vol] 87.4 fL Normal 81-99 [facility] Comment on above: Performed By: #### L 100.0100, L501.2450, L700.6800, L500.4050 ####[facility] [address] [place], [address] Monocytes/100 WBC (Bld) 11.1 % High 0-10 [facility] Comment on above: Performed By: #### L 100.0100, L501.2450, L700.6800, L500.4050 ####[facility] [address] [place], [address] Neutrophils/100 WBC (Bld) 69.9 % Normal 47-70 [facility] Comment on above: Performed By: #### L 100.0100, L501.2450, L700.6800, L500.4050 ####[facility] [address] [place], [address] Nucleated RBC (Bld) [#/Vol] 0 10*3/uL Normal 0-5 [facility] Comment on above: Performed By: #### L 100.0100, L501.2450, L700.6800, L500.4050 ####[facility] [address] [place], [address] Platelet mean volume (Bld) [Entitic vol] 11.9 fL Normal 6.2-12.0 [facility] Comment on above: Performed By: #### L 100.0100, L501.2450, L700.6800, L500.4050 ####[facility] [address] [place], [address] Platelets (Bld) [#/Vol] 65 10*3/uL Low 150-450 [facility] Comment on above: Performed By: #### L 100.0100, L501.2450, L700.6800, L500.4050 ####[facility] [address] [place], [address] RBC (Bld) [#/Vol] 3.80 10*6/uL Low 4.2-5.4 [facility] Comment on above: Performed By: #### L 100.0100, L501.2450, L700.6800, L500.4050 ####[facility] [address] [place], [address] RDW SD 54.4 fl High 35.1-43.9 [facility] Comment on above: Performed By: #### L 100.0100, L501.2450, L700.6800, L500.4050 ####[facility] [address] [place], [address] WBC (Bld) [#/Vol] 7.5 10*3/uL Normal 4.4-11.0 [facility] Comment on above: Performed By: #### L 100.0100, L501.2450, L700.6800, L500.4050 ####[facility] [address] [place], [address] Carbon dioxide, total [Moles /volume] in Central venous bloodOrdered By: Timoteo Gardiner on 07-15-2025 CO2 [Moles/Vol] 20.6 mmol/L Low 21.0-32.0 [facility] Chloride assayOrdered By: Иван Gardiner on 07-15-2025 Chloride [Moles/Vol] 105 mmol/L 98-108 [facility] Comprehensive Metabolic Prof ilon 07-15-2025 Albumin [Mass/Vol] 3.2 g/dL Low 3.5-5.0 [facility] Comment on above: Performed By: #### L 100.0100, L501.2450, L700.6800, L500.4050 ####[facility] [address] [place], [address] Albumin/Globulin [Mass ratio] 0.9 {ratio} Normal 0.9-2.4 [facility] Comment on above: Performed By: #### L 100.0100, L501.2450, L700.6800, L500.4050 ####[facility] [address] [place], [address] ALK PHOS 130 U/L High 35-104 [facility] Comment on above: Performed By: #### L 100.0100, L501.2450, L700.6800, L500.4050 ####[facility] [address] [place], [address] ALT [Catalytic activity/Vol] 106 U/L High <=34 [facility] Comment on above: Performed By: #### L 100.0100, L501.2450, L700.6800, L500.4050 ####[facility] [address] [place], [address] AST [Catalytic activity/Vol] 239 U/L High <=31 [facility] Comment on above: Performed By: #### L 100.0100, L501.2450, L700.6800, L500.4050 ####[facility] [address] [place], [address] Bilirubin [Mass/Vol] 2.12 mg/dL High 0.00-1.30 [facility] Comment on above: Performed By: #### L 100.0100, L501.2450, L700.6800, L500.4050 ####[facility] [address] [place], [address] BUN/CRE 5.8 RATIO Low 10-20 [facility] Comment on above: Performed By: #### L 100.0100, L501.2450, L700.6800, L500.4050 ####[facility] [address] [place], [address] Calcium [Mass/Vol] 8.7 mg/dL Normal 7.6-11.0 [facility] Comment on above: Performed By: #### L 100.0100, L501.2450, L700.6800, L500.4050 ####[facility] [address] [place], [address] Chloride [Moles/Vol] 105 mmol/L Normal 98-108 [facility] Comment on above: Performed By: #### L 100.0100, L501.2450, L700.6800, L500.4050 ####[facility] [address] [place], [address] CO2 [Moles/Vol] 20.6 mmol/L Low 21.0-32.0 [facility] Comment on above: Performed By: #### L 100.0100, L501.2450, L700.6800, L500.4050 ####[facility] [address] [place], [address] Creatinine [Mass/Vol] 0.83 mg/dL Normal 0.70-1.[address] [facility] Comment on above: Performed By: #### L 100.0100, L501.2450, L700.6800, L500.4050 ####[facility] [address] [place], [address] ECRCL 83.16 ml/min Normal 50-250 [facility] Comment on above: Performed By: #### L 100.0100, L501.2450, L700.6800, L500.4050 ####[facility] [address] [place], [address] GAP 8 Normal 5-15 [facility] Comment on above: Performed By: #### L 100.0100, L501.2450, L700.6800, L500.4050 ####[facility] [address] [place], [address] GFR/1.73 sq M.predicted among non-blacks MDRD (S/P/Bld) [Vol rate/Area] 86 mL/min/{1.73_m2} Normal >60 [facility] Comment on above: Result Comment: mL/m in/1.73m2 CKD-EPI Creatinine Equation (2020) Performed By: #### L 100.0100, L501.2450, L700.6800, L500.4050 ####[facility] [address] [place], [address] Globulin (S) [Mass/Vol] 3.5 g/dL Normal 2.2-4.2 [facility] Comment on above: Performed By: #### L 100.0100, L501.2450, L700.6800, L500.4050 ####[facility] [address] [place], [address] Glucose [Mass/Vol] 145 mg/dL High 70-99 [facility] Comment on above: Performed By: #### L 100.0100, L501.2450, L700.6800, L500.4050 ####[facility] [address] [place], [address] Potassium [Moles/Vol] 3.8 mmol/L Normal 3.3-5.[address] [facility] Comment on above: Performed By: #### L 100.0100, L501.2450, L700.6800, L500.4050 ####[facility] [address] [place], [address] Sodium [Moles/Vol] 134 mmol/L Normal 133-145 [facility] Comment on above: Performed By: #### L 100.0100, L501.2450, L700.6800, L500.4050 ####[facility] [address] [place], [address] T PROT 6.8 g/dL Normal 5.9-8.4 [facility] Comment on above: Performed By: #### L 100.0100, L501.2450, L700.6800, L500.4050 ####[facility] [address] [place], [address] Urea nitrogen [Mass/Vol] 5 mg/dL Normal 4-19 [facility] Comment on above: Performed By: #### L 100.0100, L501.2450, L700.6800, L500.4050 ####[facility] [address] [place], [address] Emergency Department Summary on 07-15-2025 Emergency Department Summary Normal [facility] Eosinophil percentageOrdered By: Timoteo Gardiner on 07-15-2025 Eosinophils/100 WBC (Bld) 3.9 % 0-5 [facility] Erythrocyte distribution wid th ratioOrdered By: Timoteo Gardiner on 07-15-2025 Erythrocyte distribution width (RBC) [Ratio] 17.4 % High 11.6-14.6 [facility] Erythrocyte distribution wid th standard deviationOrdered By: Timoteo Gardiner on 07-15-2025 Erythrocyte distribution width (RBC) [Ratio] 54.4 fl High 35.1-43.9 [facility] Glomerular filtration rate ( GFR) estimation/1.73 sq m using serum, plasma, or whole bOrdered By: Timoteo Gardiner on 07-15-2025 GFR/1.73 sq M.predicted among non-blacks MDRD (S/P/Bld) [Vol rate/Area] 86 mL/min/{1.73_m2} >60 [facility] Comment on above: mL/min/1.73m2 CKD-EP I Creatinine Equation (2020) Hematocrit Auto (Bld) [Volum e fraction]Ordered By: Timoteo Gardiner on 07-15-2025 Hematocrit (Bld) [Volume fraction] 33.2 % Low 37-47 [facility] Hemoglobin measurementOrdere d By: Timoteo Gardiner on 07-15-2025 Hemoglobin (Bld) [Mass/Vol] 11.1 g/dL Low 12.0-15.0 [facility] Immature granulocytes/100 WB C Auto (Bld)Ordered By: Timoteo Gardiner on 07-15-2025 Immature granulocytes/100 WBC (Bld) 0.400 % 0.0-0.9 [facility] Comment on above: IG% - Immature Granu locytes (promyelocytes, myelocytes and metamyelocytes) > 1% indicates that a LEFT SHIFT is Present. Ketones Test strip Ql (U)Ord ered By: Timoteo Gardiner on 07-15-2025 Ketones Ql (U) Negative Negative [facility] Laboratory - Chemistry and C hemistry - challengeOrdered By: Timoteo Gardiner on 07-15-2025 AST [Catalytic activity/Vol] 239 U/L High <32 [facility] Lipaseon 07-15-2025 Lipase [Catalytic activity/Vol] 36 U/L Normal 13-75 [facility] Comment on above: Result Comment: My jimenez note:LIPASE revised reference range effective 23.New Lipase methodology. Expected to produce lower valuesthan the previous assay method.NEW Reference Range: 13 - 75 U/L Performed By: #### L 100.0100, L501.2450, L700.6800, L500.4050 ####[facility] [address] [place], [address] Lipase measurementOrdered By : Timoteo Gardiner on 07-15-2025 Lipase [Catalytic activity/Vol] 36 U/L 13-75 [facility] Comment on above: Please note:LIPASE r evised reference range effective 23. New Lipase methodology. Expected to produce lower values than the previous assay method. NEW Reference Range: 13 - 75 U/L MCV (mean corpuscular volume ) determinationOrdered By: Timoteo Gardiner on 07-15-2025 MCV (RBC) [Entitic vol] 87.4 fL 81-99 [facility] Mean corpuscular hemoglobin (MCH) determinationOrdered By: Timoteo Gardiner on 07-15-2025 MCH (RBC) [Entitic mass] 29.2 pg 27.0-32.0 [facility] Mean corpuscular hemoglobin concentration (MCHC) determinationOrdered By: Timoteo Gardiner on 07-15-2025 MCHC (RBC) [Mass/Vol] 33.4 g/dL 32-[address] [facility] Mean platelet volume determi nationOrdered By: Timoteo Gardiner on 07-15-2025 Platelet mean volume (Bld) [Entitic vol] 11.9 fL 6.2-12.0 [facility] Microscopic analysis of urin e for red blood cells (RBC)Ordered By: Timoteo Gardiner on 07-15-2025 Microscopic analysis of urine for red blood cells (RBC) 5-10 SEEN /hpf 0-5 [facility] Monocyte percentageOrdered B y: Timoteo Gardiner on 07-15-2025 Monocytes/100 WBC (Bld) 11.1 % High 0-10 [facility] Mucus LM Ql (Urine sed)Order ed By: Timoteo Gardiner on 07-15-2025 Mucus Ql (Urine sed) 0 SEEN /hpf [facility] Neutrophil percentageOrdered By: Timoteo Gardiner on 07-15-2025 Neutrophils/100 WBC (Bld) 69.9 % 47-70 [facility] Nitrite Test strip Ql (U)Ord ered By: Timoteo Gardiner on 07-15-2025 Nitrite Ql (U) Negative Negative [facility] Nucleated red blood cell per centageOrdered By: Timoteo Gardiner on 07-15-2025 Nucleated RBC/100 WBC (Bld) [Ratio] 0 % 0-5 [facility] Platelet countOrdered By: Иван Gardiner on 07-15-2025 Platelets (Bld) [#/Vol] 65 10*3/uL Low 150-450 [facility] Potassium measurement (mass/ volume)Ordered By: Timoteo Gardiner on 07-15-2025 Potassium (Unsp spec) [Mass/Vol] 3.8 mmol/L 3.3-5.1 [facility] ,Serum,hCG Quali.on 07-15-2025 HCG, SERUM QUAL Negative Normal [facility] Comment on above: Performed By: #### L 100.0100, L501.2450, L700.6800, L500.4050 ####[facility] [address] [facility] [place], [place], [id number] Protein Test strip Ql (U)Ord ered By: Timoteo Gardiner on 07-15-2025 Protein Ql (U) 15 mg/dl High Negative [facility] RBC Auto (Bld) [#/Vol]Ordere d By: Timoteo Gardiner on 07-15-2025 RBC (Bld) [#/Vol] 3.80 10*6/uL Low 4.2-5.4 [facility] Serum beta-hCG test, qualita tiveOrdered By: Timoteo Gardiner on 07-15-2025 Beta HCG ( test) Ql Negative [facility] Serum creatinine measurement (mass/volume)Ordered By: Timoteo Gardiner on 07-15-2025 Creatinine [Mass/Vol] 0.83 mg/dL 0.70-1.[address] [facility] Serum globulin measurementOr dered By: Timoteo Gardiner on 07-15-2025 Globulin (S) [Mass/Vol] 3.5 g/dL 2.2-4.2 [facility] Serum glucose measurement (m ass/volume)Ordered By: Timoteo Gardiner on 07-15-2025 Glucose [Mass/Vol] 145 mg/dL High 70-99 [facility] Serum or plasma alanine rick otransferase (ALT) measurementOrdered By: Timoteo Gardiner on 07-15-2025 ALT [Catalytic activity/Vol] 106 U/L High <35 [facility] Serum or plasma albumin latrice urement (mass/volume)Ordered By: Timoteo Gardiner on 07-15-2025 Albumin [Mass/Vol] 3.2 g/dL Low 3.5-5.0 [facility] Serum or plasma albumin/glob ulin mass ratioOrdered By: Timoteo Gardiner on 07-15-2025 Albumin/Globulin [Mass ratio] 0.9 {ratio} 0.9-2.4 [facility] Serum or plasma alkaline minda sphatase measurementOrdered By: Timoteo Gardiner on 07-15-2025 ALP [Catalytic activity/Vol] 130 U/L High 35-104 [facility] Serum or plasma calcium latrice urement (mass/volume)Ordered By: Timoteo Gardiner on 07-15-2025 Calcium [Mass/Vol] 8.7 mg/dL 7.6-11.0 [facility] Serum or plasma urea nitroge n measurement (mass/volume)Ordered By: Timoteo Gardiner on 07-15-2025 Urea nitrogen [Mass/Vol] 5 mg/dL 4-19 [facility] Sodium levelOrdered By: Timoteo Gardiner on 07-15-2025 Sodium [Moles/Vol] 134 mmol/L 133-145 [facility] Squamous epithelial cells de tection in urine sediment by light microscopyOrdered By: Timoteo Gardiner on 07-15-2025 Epithelial cells.squamous LM Ql (Urine sed) 0-5 SEEN /hpf 5-10 [facility] Total proteinOrdered By: Danilo Gardiner on 07-15-2025 Protein [Mass/Vol] 6.8 g/dL 5.9-8.4 [facility] Urinalysis, Completeon 07-15 BACTERIA RARE Normal None Seen [facility] Comment on above: Order Comment: ESME CTOR TO SPECIFY Performed By: #### L 400.0001 ####[facility] [address] [place], [address] EPI,SQUAMOUS 0-5 SEEN Normal 5-10 [facility] Comment on above: Order Comment: ESME CTOR TO SPECIFY Performed By: #### L 400.0001 ####[facility] [address] [place], [address] RBC 5-10 SEEN Normal 0-5 [facility] Comment on above: Order Comment: ESME CTOR TO SPECIFY Performed By: #### L [id number] ####[facility] [address] [place], [address] WBC 0-5 SEEN Normal 0-5 [facility] Comment on above: Order Comment: ESME CTOR TO SPECIFY Performed By: #### L 400.0001 ####[facility] [address] [place], [address] Mucus Ql (Urine sed) 0 SEEN Normal [facility] Comment on above: Order Comment: ESME CTOR TO SPECIFY Performed By: #### L [id number] ####[facility] [address] [place], [address] Urine clarityOrdered By: Danilo Gardiner on 07-15-2025 Clarity (U) Sl. Cloudy Clear [facility] Urine color determinationOrd ered By: Timoteo Gardiner on 07-15-2025 Color (U) Yellow Yellow [facility] Urine glucose detectionOrder ed By: Timoteo Gardiner on 07-15-2025 Glucose Ql (U) Normal mg/dl Normal [facility] Urine leukocyte esterase det ection by dipstickOrdered By: Timoteo Gardiner on 07-15-2025 Leukocyte esterase Test strip Ql (U) Negative Negative [facility] Urine pHOrdered By: Timoteo Waldron ghnash on 07-15-2025 pH (U) 7.0 [pH] 5.0 - 8.0 [facility] Urine sediment bacteria coun t by microscopy (number/high power field)Ordered By: Timoteo Gardiner on 07-15-2025 Bacteria LM.HPF (Urine sed) [#/Area] RARE /hpf None Seen [facility] Urine specific gravity measu rementOrdered By: Timoteo Gardiner on 07-15-2025 Specific gravity (U) [Rel density] 1.010 1.002-1.030 [facility] Urine urobilinogen measureme ntOrdered By: Timoteo Gardiner on 07-15-2025 Urobilinogen Ql (U) 4 mg/dl High Normal [facility] White blood cell (WBC) count Ordered By: Timoteo Gardiner on 07-15-2025 WBC (Bld) [#/Vol] 7.5 10*3/uL 4.4-11.0 [facility] White blood cell countOrdere d By: Timoteo Gardiner on 07-15-2025 White blood cell count 0-5 SEEN /hpf 0-5 [facility] Absolute lymphocyte countOrd ered By: Brock Ruiz on 07-11-2025 Lymphocytes Auto (Unsp spec) [#/Vol] 1.07 10*3/uL 0.83-4.51 [facility] Absolute neutrophil countOrd ered By: Brock Ruiz on 07-11-2025 Neutrophils (Bld) [#/Vol] 4.3 10*3/uL 2.0-7.7 [facility] Amphetamine detection with 1 000 ng/mL as cutoffOrdered By: Brock Ruiz on 07-11-2025 Amphetamines Screen method >1000 ng/mL Ql (U) Negative < 200 ng/mL [facility] Anion gap in Serum or Plasma Ordered By: Brock Ruiz on 07-11-2025 Anion gap [Moles/Vol] 10 mmol/L 5-[address] [facility] Automated lymphocyte count a s percentage of total leukocytesOrdered By: Brock Ruiz on 07-11-2025 Lymphocytes/100 WBC Auto (Unsp spec) 17.3 % Low 19-41 [facility] BUN/creatinine ratioOrdered By: Brock Ruiz on 07-11-2025 Urea nitrogen/Creatinine [Mass ratio] 14.4 mg/mg 10- [facility] Basophil percentageOrdered B y: Brock Sara on 07-11-2025 Basophils/100 WBC (Bld) 0.3 % 0-1 [facility] Bilirubin Test strip Ql (U)O rdered By: Brock Ruiz on 07-11-2025 Bilirubin Ql (U) Negative Negative [facility] Bilirubin, totalOrdered By: Brock Ruiz on 07-11-2025 Bilirubin [Mass/Vol] 1.77 mg/dL High 0.00-1.30 [facility] CBC W/Diff, Automatedon 06-26 PLT EST MKD DEC Normal ADEQ [facility] Comment on above: Order Comment: CRITI BRAYDEN VALUE CALLED TO OSMAN Jacobs07/11/25 1044 Bernadettes[address] Omkar.RESULTS READ BACK BY SAME. Performed By: #### L [id number], L100.0100, L505.5000 ####[facility] [address] [place], [place], [id number] Carbon dioxide, total [Moles /volume] in Central venous bloodOrdered By: Brock Ruiz on 07-11-2025 CO2 [Moles/Vol] 19.2 mmol/L Low 21.0-32.0 [facility] Chloride assayOrdered By: Hebert Ruiz on 07-11-2025 Chloride [Moles/Vol] 107 mmol/L 98-108 [facility] Comprehensive Metabolic Prof ilon 07-11-2025 Albumin [Mass/Vol] 3.1 g/dL Low 3.5-5.0 [facility] Comment on above: Performed By: #### L [id number], L100.0100, L505.5000 ####[facility] [address] [place], [place], [id number] Albumin/Globulin [Mass ratio] 0.9 {ratio} Normal 0.9-2.4 [facility] Comment on above: Performed By: #### L [id number], L100.0100, L505.5000 ####[facility] [address] [place], [address] ALK PHOS 105 U/L High 35-104 [facility] Comment on above: Performed By: #### L [id number], L100.0100, L505.5000 ####[facility] [address] [place], [address] ALT [Catalytic activity/Vol] 52 U/L High <=34 [facility] Comment on above: Performed By: #### L [id number], L100.0100, L505.5000 ####[facility] [address] [place], [address] AST [Catalytic activity/Vol] 101 U/L High <=31 [facility] Comment on above: Performed By: #### L 500.4050, L100.0100, L505.5000 ####[facility] [address] [place], [address] Bilirubin [Mass/Vol] 1.77 mg/dL High 0.00-1.30 [facility] Comment on above: Performed By: #### L [id number], L100.0100, L505.5000 ####[facility] [address] [place], [address] BUN/CRE 14.4 RATIO Normal 10-20 [facility] Comment on above: Performed By: #### L [id number], L100.0100, L505.5000 ####[facility] [address] [place], [address] Calcium [Mass/Vol] 8.8 mg/dL Normal 7.6-11.0 [facility] Comment on above: Performed By: #### L [id number], L100.0100, L505.5000 ####[facility] [address] [place], [address] Chloride [Moles/Vol] 107 mmol/L Normal 98-108 [facility] Comment on above: Performed By: #### L 500.4050, L100.0100, L505.5000 ####[facility] [address] [place], [address] CO2 [Moles/Vol] 19.2 mmol/L Low 21.0-32.0 [facility] Comment on above: Performed By: #### L 500.4050, L100.0100, L505.5000 ####[facility] [address] [place], [address] Creatinine [Mass/Vol] 1.01 mg/dL Normal 0.70-1.[address] [facility] Comment on above: Performed By: #### L 500.4050, L100.0100, L505.5000 ####[facility] [address] [place], [address] ECRCL 67.43 ml/min Normal 50-250 [facility] Comment on above: Performed By: #### L 500.4050, L100.0100, L505.5000 ####[facility] [address] [place], [address] GAP 10 Normal 5-15 [facility] Comment on above: Performed By: #### L 500.4050, L100.0100, L505.5000 ####[facility] [address] [place], [address] GFR/1.73 sq M.predicted among non-blacks MDRD (S/P/Bld) [Vol rate/Area] 67 mL/min/{1.73_m2} Normal >60 [facility] Comment on above: Result Comment: mL/m in/1.73m2 CKD-EPI Creatinine Equation (2020) Performed By: #### L [id number], L100.0100, L505.5000 ####[facility] [address] [place], [address] Globulin (S) [Mass/Vol] 3.6 g/dL Normal 2.2-4.2 [facility] Comment on above: Performed By: #### L 500.4050, L100.0100, L505.5000 ####[facility] [address] [place], [address] Glucose [Mass/Vol] 132 mg/dL High 70-99 [facility] Comment on above: Performed By: #### L 500.4050, L100.0100, L505.5000 ####[facility] [address] [place], [address] Potassium [Moles/Vol] 3.7 mmol/L Normal 3.3-5.[address] [facility] Comment on above: Performed By: #### L 500.4050, L100.0100, L505.5000 ####[facility] [address] [place], [address] Sodium [Moles/Vol] 136 mmol/L Normal 133-145 [facility] Comment on above: Performed By: #### L 500.4050, L100.0100, L505.5000 ####[facility] [address] [place], [address] T PROT 6.7 g/dL Normal 5.9-8.4 [facility] Comment on above: Performed By: #### L 500.4050, L100.0100, L505.5000 ####[facility] [address] [place], [address] Urea nitrogen [Mass/Vol] 15 mg/dL Normal 4-19 [facility] Comment on above: Performed By: #### L [id number], L100.0100, L505.5000 ####[facility] [address] [place], [address] Emergency Department Summary on 07-11-2025 Emergency Department Summary Normal [facility] Eosinophil percentageOrdered By: Brock Ruiz on 07-11-2025 Eosinophils/100 WBC (Bld) 2.4 % 0-5 [facility] Erythrocyte distribution wid th ratioOrdered By: Brock Ruiz on 07-11-2025 Erythrocyte distribution width (RBC) [Ratio] 16.9 % High 11.6-14.6 [facility] Erythrocyte distribution wid th standard deviationOrdered By: Brocksue Nash on 07-11-2025 Erythrocyte distribution width (RBC) [Ratio] 55.0 fl High 35.1-43.9 [facility] Glomerular filtration rate ( GFR) estimation/1.73 sq m using serum, plasma, or whole bOrdered By: Brock Ruiz on 07-11-2025 GFR/1.73 sq M.predicted among non-blacks MDRD (S/P/Bld) [Vol rate/Area] 67 mL/min/{1.73_m2} >60 [facility] Comment on above: mL/min/1.73m2 CKD-EP I Creatinine Equation (2020) Hematocrit Auto (Bld) [Volum e fraction]Ordered By: Brock Ruiz on 07-11-2025 Hematocrit (Bld) [Volume fraction] 32.5 % Low 37-47 [facility] Hemoglobin measurementOrdere d By: Brock Ruiz on 07-11-2025 Hemoglobin (Bld) [Mass/Vol] 10.7 g/dL Low 12.0-15.0 [facility] Immature granulocytes/100 WB C Auto (Bld)Ordered By: Brock Ruiz on 07-11-2025 Immature granulocytes/100 WBC (Bld) 0.300 % 0.0-0.9 [facility] Comment on above: IG% - Immature Granu locytes (promyelocytes, myelocytes and metamyelocytes) > 1% indicates that a LEFT SHIFT is Present. Ketones Test strip Ql (U)Ord ered By: Brock Ruiz on 07-11-2025 Ketones Ql (U) Negative Negative [facility] Laboratory - Chemistry and C hemistry - challengeOrdered By: Brock Ruiz on 07-11-2025 AST [Catalytic activity/Vol] 101 U/L High <32 [facility] Lumbar Spine 2 or 3 Viewson 07-11-2025 Lumbar Spine 2 or 3 Views Normal [facility] MCV (mean corpuscular volume ) determinationOrdered By: Brock Ruiz on 07-11-2025 MCV (RBC) [Entitic vol] 89.0 fL 81-99 [facility] Mean corpuscular hemoglobin (MCH) determinationOrdered By: Brock Ruiz on 07-11-2025 MCH (RBC) [Entitic mass] 29.3 pg 27.0-32.0 [facility] Mean corpuscular hemoglobin concentration (MCHC) determinationOrdered By: Brock Ruiz on 07-11-2025 MCHC (RBC) [Mass/Vol] 32.9 g/dL 32-[address] [facility] Mean platelet volume determi nationOrdered By: Brock Ruiz on 07-11-2025 Platelet mean volume (Bld) [Entitic vol] 12.3 fL High 6.2-12.0 [facility] Microscopic analysis of urin e for red blood cells (RBC)Ordered By: Brock Ruiz on 07-11-2025 Microscopic analysis of urine for red blood cells (RBC) 0-5 SEEN /hpf 0-5 [facility] Monocyte percentageOrdered B y: Brock Ruiz on 07-11-2025 Monocytes/100 WBC (Bld) 9.5 % 0-10 [facility] Mucus LM Ql (Urine sed)Order ed By: Brock Ruiz on 07-11-2025 Mucus Ql (Urine sed) 1+ /hpf [facility] Neutrophil percentageOrdered By: Brock Ruiz on 07-11-2025 Neutrophils/100 WBC (Bld) 70.2 % High 47-70 [facility] Nitrite Test strip Ql (U)Ord ered By: Brock Ruiz on 07-11-2025 Nitrite Ql (U) Negative Negative [facility] No Panel InformationOrdered By: Brock Ruiz on 07-11-2025 Urine Buprenorphine Qualitative Negative < 200 ng/mL [facility] Urine Oxycodone Screen Positive < 100 ng/mL [facility] Comment on above: If confirmation test ing is needed, a separate order will be required to send out testing to the reference laboratory. Nucleated red blood cell per centageOrdered By: Brock Ruiz on 07-11-2025 Nucleated RBC/100 WBC (Bld) [Ratio] 0 % 0-5 [facility] Platelet countOrdered By: Hebert Ruiz on 07-11-2025 Platelets (Bld) [#/Vol] 39 10*3/uL Critically low 150-450 [facility] Comment on above: CRITICAL VALUE RODRIGUEZ D TO LARY CAO (ER)07/11/25 0957 Mariah Cook.RESULTS READ BACK BY SAME. Platelet estimateOrdered By: Brock Ruiz on 07-11-2025 Platelets LM Ql (Bld) MKD DEC ADEQ [facility] Potassium measurement (mass/ volume)Ordered By: Brock Ruiz on 07-11-2025 Potassium (Unsp spec) [Mass/Vol] 3.7 mmol/L 3.3-5.1 [facility] Protein Test strip Ql (U)Ord ered By: Brock Ruiz on 07-11-2025 Protein Ql (U) 30 mg/dl High Negative [facility] Quantitative urine opiates m easurementOrdered By: Brock Ruiz on 07-11-2025 Opiates Ql (U) Negative < 300 ng/mL [facility] RBC Auto (Bld) [#/Vol]Ordere d By: Brock Ruiz on 07-11-2025 RBC (Bld) [#/Vol] 3.65 10*6/uL Low 4.2-5.4 [facility] Screening urine fentanyl mic surementOrdered By: Brock Ruiz on 07-11-2025 fentaNYL Screen Ql (U) Negative <5 ng/mL [facility] Comment on above: CONFIRMATORY TESTING FOR ALL POSITIVE URINE DRUG SCREENRESULTS WILL ONLY BE SENT OUT UPON PHYSICIAN ORDER. Eryn Pro Urine Drug Screen methods provide only preliminaryanalytical test results. A more specific alternate chemicalmethod must be used in order to obtain a confirmedanalytical result. Gas chromatography/mass spectrometery(GC/MS) is the preferred confirmatory method. Clinicalconsideration and professional judgement should be appliedto any drug of abuse test result, particularly whenpreliminary positive results are used. Urine TCA testing must be ordered separately. Use test mnemonic: [facility] Serum creatinine measurement (mass/volume)Ordered By: Brock Ruiz on 07-11-2025 Creatinine [Mass/Vol] 1.01 mg/dL 0.70-1.[address] [facility] Serum globulin measurementOr dered By: Brock Ruiz on 07-11-2025 Globulin (S) [Mass/Vol] 3.6 g/dL 2.2-4.2 [facility] Serum glucose measurement (m ass/volume)Ordered By: Brock Ruiz on 07-11-2025 Glucose [Mass/Vol] 132 mg/dL High 70-99 [facility] Serum or plasma alanine rick otransferase (ALT) measurementOrdered By: Brock Ruiz on 07-11-2025 ALT [Catalytic activity/Vol] 52 U/L High <35 [facility] Serum or plasma albumin latrice urement (mass/volume)Ordered By: Brock Nash on 07-11-2025 Albumin [Mass/Vol] 3.1 g/dL Low 3.5-5.0 [facility] Serum or plasma albumin/glob ulin mass ratioOrdered By: Brock Ruiz on 07-11-2025 Albumin/Globulin [Mass ratio] 0.9 {ratio} 0.9-2.4 [facility] Serum or plasma alkaline minda sphatase measurementOrdered By: Brock Sara on 07-11-2025 ALP [Catalytic activity/Vol] 105 U/L High 35-104 [facility] Serum or plasma calcium latrice urement (mass/volume)Ordered By: Brock Nash on 07-11-2025 Calcium [Mass/Vol] 8.8 mg/dL 7.6-11.0 [facility] Serum or plasma urea nitroge n measurement (mass/volume)Ordered By: Brock KolbBrandi on 07-11-2025 Urea nitrogen [Mass/Vol] 15 mg/dL 4-19 [facility] Sodium levelOrdered By: Jim luciano Sara on 07-11-2025 Sodium [Moles/Vol] 136 mmol/L 133-145 [facility] Squamous epithelial cells de tection in urine sediment by light microscopyOrdered By: Brock KolbBrandi on 07-11-2025 Epithelial cells.squamous LM Ql (Urine sed) 5-10 SEEN /hpf - [facility] Total proteinOrdered By: Micheal KolbBrandi on 07-11-2025 Protein [Mass/Vol] 6.7 g/dL 5.9-8.4 [facility] Urinalysis, Completeon 07-11 RBC 0-5 SEEN Normal 0-5 [facility] Comment on above: Order Comment: CLEAN CATCH Performed By: #### L 400.0001 ####[facility] [address] [place], [address] BACTERIA 1+ /hpf Normal None Seen [facility] Comment on above: Order Comment: CLEAN CATCH Performed By: #### L 400.0001 ####[facility] [address] [place], [address] EPI,SQUAMOUS 5-10 SEEN Normal - [facility] Comment on above: Order Comment: CLEAN CATCH Performed By: #### L 400.0001 ####[facility] [address] [place], [address] Mucus Ql (Urine sed) 1+ /hpf Normal [facility] Comment on above: Order Comment: CLEAN CATCH Performed By: #### L 400.0001 ####[facility] [address] [place], [address] WBC 0 SEEN Normal 0-5 [facility] Comment on above: Order Comment: CLEAN CATCH Performed By: #### L 400.0001 ####[facility] [address] [place], [address] Urine Drug Screen (VISTA)on 07-11-2025 AMPHETAMINES Negative Normal <1000 ng/mL [facility] Comment on above: Performed By: #### L 500.4050, L100.0100, L505.5000 ####[facility] [address] [place], [address] BARBITIURATES Negative Normal < 200 ng/mL [facility] Comment on above: Performed By: #### L 500.4050, L100.0100, L505.5000 ####[facility] [address] [facility] [address] BENZODIAZIPINE Negative Normal < 200 ng/mL [facility] Comment on above: Performed By: #### L 500.4050, L100.0100, L505.5000 ####[facility] [address] [place], [address] BUP Ur Drug Scr Negative Normal < 200 ng/mL [facility] Comment on above: Performed By: #### L 500.4050, L100.0100, L505.5000 ####[facility] [address] [place], [address] COCAINE Negative Normal < 300 ng/mL [facility] Comment on above: Performed By: #### L 500.4050, L100.0100, L505.5000 ####[facility] [address] [place], [address] Fentanyl Negative Normal <5 ng/mL [facility] Comment on above: Result Comment: CONF IRMATORY TESTING FOR ALL POSITIVE URINE DRUG SCREENRESULTS WILL ONLY BE SENT OUT UPON PHYSICIAN ORDER.Eryn Pro Urine Drug Screen methods provide only preliminaryanalytical test results. A more specific alternate chemicalmethod must be used in order to obtain a confirmedanalytical result. Gas chromatography/mass spectrometery(GC/MS) is the preferred confirmatory method. Clinicalconsideration and professional judgement should be appliedto any drug of abuse test result, particularly whenpreliminary positive results are used.Urine TCA testing must be ordered separately. Use testmnemonic: [facility] Performed By: #### L 500.4050, L100.0100, L505.5000 ####[facility] [address] [facility] [address] METHADONE Negative Normal < 300 ng/mL [facility] Comment on above: Performed By: #### L 500.4050, L100.0100, L505.5000 ####[facility] [address] [facility] [address] OPIATES Negative Normal < 300 ng/mL [facility] Comment on above: Performed By: #### L 500.4050, L100.0100, L505.5000 ####[facility] [address] [facility] [address] OXYCODONE Positive Normal < 100 ng/mL [facility] Comment on above: Result Comment: If c onfirmation testing is needed, a separate order will berequired to send out testing to the reference laboratory. Performed By: #### L 500.4050, L100.0100, L505.5000 ####[facility] [address] [facility] [address] PCP Negative Normal < 25 ng/mL [facility] Comment on above: Performed By: #### L 500.4050, L100.0100, L505.5000 ####[facility] [address] [facility] [address] THC Negative Normal < 50 ng/mL [facility] Comment on above: Performed By: #### L 500.4050, L100.0100, L505.5000 ####[facility] [address] [place] [id number] Urine benzodiazepine levelOr dered By: Brock Ruiz on 07-11-2025 Benzodiazepines Ql (U) Negative < 200 ng/mL [facility] Urine clarityOrdered By: Micheal Ruiz on 07-11-2025 Clarity (U) Sl. Cloudy Clear [facility] Urine cocaine levelOrdered B y: Brock Ruiz on 07-11-2025 Cocaine Ql (U) Negative < 300 ng/mL [facility] Urine color determinationOrd ered By: Brock Ruiz on 07-11-2025 Color (U) Yellow Yellow [facility] Urine lfzja-2-cuzyvczqmedlki abinol (THC) measurementOrdered By: Brock Nash on 07-11-2025 Cannabinoids Screen Ql (U) Negative < 50 ng/mL [facility] Urine glucose detectionOrder ed By: Brock Ruiz on 07-11-2025 Glucose Ql (U) Normal mg/dl Normal [facility] Urine leukocyte esterase det ection by dipstickOrdered By: Brock Ruiz on 07-11-2025 Leukocyte esterase Test strip Ql (U) Negative Negative [facility] Urine pHOrdered By: Brock Paz on 07-11-2025 pH (U) 6.0 [pH] 5.0 - 8.0 [facility] Urine phencyclidine (PCP) de tectionOrdered By: Brock Ruiz on 07-11-2025 Phencyclidine Ql (U) Negative < 25 ng/mL [facility] Urine sediment bacteria coun t by microscopy (number/high power field)Ordered By: Brock Ruiz on 07-11-2025 Bacteria LM.HPF (Urine sed) [#/Area] 1 /[HPF] None Seen [facility] Urine specific gravity measu rementOrdered By: Brock Ruiz on 07-11-2025 Specific gravity (U) [Rel density] 1.025 1.002-1.030 [facility] Urine urobilinogen measureme ntOrdered By: Brock Ruiz on 07-11-2025 Urobilinogen Ql (U) 4 mg/dl High Normal [facility] White blood cell (WBC) count Ordered By: Brock Ruiz on 07-11-2025 WBC (Bld) [#/Vol] 6.2 10*3/uL 4.4-11.0 [facility] White blood cell countOrdere d By: Brock Ruiz on 07-11-2025 White blood cell count 0 SEEN /hpf 0-[address] [facility] Ammoniaon 06-26-2025 Ammonia (P) [Moles/Vol] 119.0 umol/L [facility] Comment on above: Performed By: #### L 503.5510 ####[facility] [address] [place], [address] Venous blood ammonia measure menton 06-26-2025 Ammonia (P) [Moles/Vol] 119.0 umol/L [facility] [address] [place] [address] [id number] 05-28-2025 [facility] Misc. COMMENT Normal . [facility] Comment on above: Order Comment: SABINE Kumar SEND CBCD,CMP,AMM TO [facility].[id number] HEP RED RF Result Comment: Test Ordered: [id number] Autoimmune Liver Profile (RDL)Anti-Nuclear Ab by IFA (RDL) Positive [A ] ESECF Reference Range: NegativeHomogeneous Pattern SENIOR PROFESSIONAL SERVICES CONSULTANT [employer] Reference Range: .Nucleolar Pattern SENIOR PROFESSIONAL SERVICES CONSULTANT [employer] Reference Range: .Speckled Pattern 1:320 [H ] ESECF Reference Range: <1:40Centromere Pattern SENIOR PROFESSIONAL SERVICES CONSULTANT [employer] Reference Range: .Spindle Apparatus Pattern SENIOR PROFESSIONAL SERVICES CONSULTANT [employer] Reference Range: .Nuclear Membrane Pattern SENIOR PROFESSIONAL SERVICES CONSULTANT [employer] Reference Range: .Midbody Pattern SENIOR PROFESSIONAL SERVICES CONSULTANT [employer] Reference Range: .Nuclear Dot Pattern SENIOR PROFESSIONAL SERVICES CONSULTANT [employer] Reference Range: .PCNA Pattern SENIOR PROFESSIONAL SERVICES CONSULTANT [employer] Reference Range: .Centriole Pattern SENIOR PROFESSIONAL SERVICES CONSULTANT [employer] Reference Range: .Note: Comment ESECF Reference [...] 20 - 60 Strong Positive: >60Performed at: [facility] [address] [id number] Director: Anjelica Carney MD, Phone: [phone] at: [facility] [address] [id number] Director: Tee Reyna PhD, Phone: [phone] Performed By: #### L 503.5510, L501.6710, L100.0100, L500.4050, L3410.9994, L3410.9992, L300.3900 ####[facility] [address] [place], [address] L3410.9994on 05-28-2025 [facility]. 2 COMMENT Normal . [facility] Comment on above: Order Comment: PLEAS E SEND CBCD,CMP,AMM TO JOHNIE BEAM.[id number] PROFILE RED RF Result Comment: Test Ordered: [id number] Primary Biliary Cholangitis PrAnti-Nuclear Ab by IFA (RDL) Positive [A ] ESECF Reference Range: NegativeHomogeneous Pattern SENIOR PROFESSIONAL SERVICES CONSULTANT [employer] Reference Range: .Nucleolar Pattern SENIOR PROFESSIONAL SERVICES CONSULTANT [employer] Reference Range: .Speckled Pattern 1:160 [H ] ESECF Reference Range: <1:40Centromere Pattern SENIOR PROFESSIONAL SERVICES CONSULTANT [employer] Reference Range: .Spindle Apparatus Pattern SENIOR PROFESSIONAL SERVICES CONSULTANT [employer] Reference Range: .Nuclear Membrane Pattern SENIOR PROFESSIONAL SERVICES CONSULTANT [employer] Reference Range: .Midbody Pattern SENIOR PROFESSIONAL SERVICES CONSULTANT [employer] Reference Range: .Nuclear Dot Pattern SENIOR PROFESSIONAL SERVICES CONSULTANT [employer] Reference Range: .PCNA Pattern SENIOR PROFESSIONAL SERVICES CONSULTANT [employer] Reference Range: .Centriole Pattern SENIOR PROFESSIONAL SERVICES CONSULTANT [employer] Reference Range: .Note: Comment ESECF Reference Range: .DEISY performed by Indirect Fluorescent Antibody (IFA)Anti-Mitochondrial Ab by IFA <1:20 ESECF Reference Range: <1:20Anti-Mitochondrial M2 Ab (RDL) <20 Units ESECF Reference Range: <20 Negative: <20 Equivocal: 20 - 25 Positive: >[id number] Ab (RDL) <20 Units ESECF Reference Range: <[id number] Ab (RDL) <20 Units ESECF Reference Range: <20Anti-Smooth Muscle Ab by IFA 1:80 [H ] ESECF Reference Range: <1:20Performed at: [facility] [id number] [place] [id number] Director: Anjelica Carney MD, Phone: [phone] at: [facility] [address] [id number] Director: Tee Reyna PhD, Phone: [phone] Performed By: #### L 503.5510, L501.6710, L100.0100, L500.4050, L3410.9994, L3410.9992, L300.3900 ####[facility] [address] [place], [address] Absolute lymphocyte countOrd ered By: Son Adams on 05-20-2025 Lymphocytes Auto (Unsp spec) [#/Vol] 1.36 10*3/uL 0.83-4.51 [facility] Absolute neutrophil countOrd ered By: Son Adams on 05-20-2025 Neutrophils (Bld) [#/Vol] 5.4 10*3/uL 2.0-7.7 [facility] Ammoniaon 05-20-2025 Ammonia (P) [Moles/Vol] 37.0 umol/L Normal [facility] Comment on above: Performed By: #### L 503.5510, L501.6710, L100.0100, L500.4050, L3410.9994, L3410.9992, L300.3900 ####[facility] [address] [place], [address] Anion gap in Serum or Plasma Ordered By: Son Adams on 05-20-2025 Anion gap [Moles/Vol] 11 mmol/L 5- [facility] Automated lymphocyte count a s percentage of total leukocytesOrdered By: Son Adams on 05-20-2025 Lymphocytes/100 WBC Auto (Unsp spec) 17.3 % Low - [facility] BUN/creatinine ratioOrdered By: Son Adams on 05-20-2025 Urea nitrogen/Creatinine [Mass ratio] 10.0 mg/mg 10- [facility] Basophil percentageOrdered B y: Son Adams on 05-20-2025 Basophils/100 WBC (Bld) 0.8 % 0-1 [facility] Bilirubin, totalOrdered By: Son Adams on 05-20-2025 Bilirubin [Mass/Vol] 2.38 mg/dL High 0.00-1.30 [facility] CBC W/Diff, Automatedon 04-27 Absolute Lymph 1.36 X10 3/uL Normal 0.83-4.51 [facility] Comment on above: Performed By: #### L 503.5510, L501.6710, L100.0100, L500.4050, L3410.9994, L3410.9992, L300.3900 ####[facility] [address] [place], [address] Absolute Neut 5.4 X10 3/uL Normal 2.0-7.7 [facility] Comment on above: Performed By: #### L 503.5510, L501.6710, L100.0100, L500.4050, L3410.9994, L3410.9992, L300.3900 ####[facility] [address] [place], [address] Basophils/100 WBC (Bld) 0.8 % Normal 0-1 [facility] Comment on above: Performed By: #### L 503.5510, L501.6710, L100.0100, L500.4050, L3410.9994, L3410.9992, L300.3900 ####[facility] [address] [place], [address] Eosinophils/100 WBC (Bld) 4.3 % Normal 0-5 [facility] Comment on above: Performed By: #### L 503.5510, L501.6710, L100.0100, L500.4050, L3410.9994, L3410.9992, L300.3900 ####[facility] [address] [place], [address] Erythrocyte distribution width (RBC) [Ratio] 15.7 % High 11.6-14.6 [facility] Comment on above: Performed By: #### L 503.5510, L501.6710, L100.0100, L500.4050, L3410.9994, L3410.9992, L300.3900 ####[facility] [address] [place], [address] Hematocrit (Bld) [Volume fraction] 36.6 % Low 37-47 [facility] Comment on above: Performed By: #### L 503.5510, L501.6710, L100.0100, L500.4050, L3410.9994, L3410.9992, L300.3900 ####[facility] [address] [place], [address] Hemoglobin (Bld) [Mass/Vol] 12.4 g/dL Normal 12.0-15.0 [facility] Comment on above: Performed By: #### L 503.5510, L501.6710, L100.0100, L500.4050, L3410.9994, L3410.9992, L300.3900 ####[facility] [address] [place], [address] IG% 0.400 Normal 0.0-0.9 [facility] Comment on above: Result Comment: IG% - Immature Granulocytes (promyelocytes, myelocytes andmetamyelocytes) > 1% indicates that a LEFT SHIFT is Present. Performed By: #### L 503.5510, L501.6710, L100.0100, L500.4050, L3410.9994, L3410.9992, L300.3900 ####[facility] [address] [place], [address] Lymphocytes/100 WBC (Bld) 17.3 % Low 19-41 [facility] Comment on above: Performed By: #### L 503.5510, L501.6710, L100.0100, L500.4050, L3410.9994, L3410.9992, L300.3900 ####[facility] [address] [place], [address] MCH (RBC) [Entitic mass] 28.9 pg Normal 27.0-32.0 [facility] Comment on above: Performed By: #### L 503.5510, L501.6710, L100.0100, L500.4050, L3410.9994, L3410.9992, L300.3900 ####[facility] [address] [place], [address] MCHC (RBC) [Mass/Vol] 33.9 g/dL Normal 32-[address] [facility] Comment on above: Performed By: #### L 503.5510, L501.6710, L100.0100, L500.4050, L3410.9994, L3410.9992, L300.3900 ####[facility] [address] [place], [address] MCV (RBC) [Entitic vol] 85.3 fL Normal 81-99 [facility] Comment on above: Performed By: #### L 503.5510, L501.6710, L100.0100, L500.4050, L3410.9994, L3410.9992, L300.3900 ####[facility] [address] [place], [address] Monocytes/100 WBC (Bld) 8.3 % Normal 0-10 [facility] Comment on above: Performed By: #### L 503.5510, L501.6710, L100.0100, L500.4050, L3410.9994, L3410.9992, L300.3900 ####[facility] [address] [place], [address] Neutrophils/100 WBC (Bld) 68.9 % Normal 47-70 [facility] Comment on above: Performed By: #### L 503.5510, L501.6710, L100.0100, L500.4050, L3410.9994, L3410.9992, L300.3900 ####[facility] [address] [place], [address] Nucleated RBC (Bld) [#/Vol] 0 10*3/uL Normal 0-5 [facility] Comment on above: Performed By: #### L 503.5510, L501.6710, L100.0100, L500.4050, L3410.9994, L3410.9992, L300.3900 ####[facility] [address] [place], [address] Platelet mean volume (Bld) [Entitic vol] 11.9 fL Normal 6.2-12.0 [facility] Comment on above: Performed By: #### L 503.5510, L501.6710, L100.0100, L500.4050, L3410.9994, L3410.9992, L300.3900 ####[facility] [address] [place], [address] Platelets (Bld) [#/Vol] 69 10*3/uL Low 150-450 [facility] Comment on above: Performed By: #### L 503.5510, L501.6710, L100.0100, L500.4050, L3410.9994, L3410.9992, L300.3900 ####[facility] [address] [place], [address] RBC (Bld) [#/Vol] 4.29 10*6/uL Normal 4.2-5.4 [facility] Comment on above: Performed By: #### L 503.5510, L501.6710, L100.0100, L500.4050, L3410.9994, L3410.9992, L300.3900 ####[facility] [address] [place], [address] RDW SD 47.7 fl High 35.1-43.9 [facility] Comment on above: Performed By: #### L 503.5510, L501.6710, L100.0100, L500.4050, L3410.9994, L3410.9992, L300.3900 ####[facility] [address] [place], [address] WBC (Bld) [#/Vol] 7.9 10*3/uL Normal 4.4-11.0 [facility] Comment on above: Performed By: #### L 503.5510, L501.6710, L100.0100, L500.4050, L3410.9994, L3410.9992, L300.3900 ####[facility] [address] [place], [address] CRPon 08-25-2025 C-REACTIVE PROT 20.20 mg/L High 0.0-3.0 [facility] Comment on above: Performed By: #### L 503.5510, L501.6710, L100.0100, L500.4050, L3410.9994, L3410.9992, L300.3900 ####[facility] [address] [place], [address] Carbon dioxide, total [Moles /volume] in Central venous bloodOrdered By: Son Adams on 05-20-2025 CO2 [Moles/Vol] 21.9 mmol/L 21.0-32.0 [facility] Chloride assayOrdered By: Darshana Adams on 05-20-2025 Chloride [Moles/Vol] 103 mmol/L 98-108 [facility] Comprehensive Metabolic Prof ilon 05-20-2025 Albumin [Mass/Vol] 3.4 g/dL Low 3.5-5.0 [facility] Comment on above: Performed By: #### L 503.5510, L501.6710, L100.0100, L500.4050, L3410.9994, L3410.9992, L300.3900 ####[facility] [address] [place], [address] Albumin/Globulin [Mass ratio] 0.7 {ratio} Low 0.9-2.4 [facility] Comment on above: Performed By: #### L 503.5510, L501.6710, L100.0100, L500.4050, L3410.9994, L3410.9992, L300.3900 ####[facility] [address] [place], [address] ALK PHOS 210 U/L High 35-104 [facility] Comment on above: Performed By: #### L 503.5510, L501.6710, L100.0100, L500.4050, L3410.9994, L3410.9992, L300.3900 ####[facility] [address] [place], [address] ALT [Catalytic activity/Vol] 93 U/L High <=34 [facility] Comment on above: Performed By: #### L 503.5510, L501.6710, L100.0100, L500.4050, L3410.9994, L3410.9992, L300.3900 ####[facility] [address] [place], [address] AST [Catalytic activity/Vol] 166 U/L High <=31 [facility] Comment on above: Performed By: #### L 503.5510, L501.6710, L100.0100, L500.4050, L3410.9994, L3410.9992, L300.3900 ####[facility] [address] [place], [address] Bilirubin [Mass/Vol] 2.38 mg/dL High 0.00-1.30 [facility] Comment on above: Performed By: #### L 503.5510, L501.6710, L100.0100, L500.4050, L3410.9994, L3410.9992, L300.3900 ####[facility] [address] [place], [address] BUN/CRE 10.0 RATIO Normal 10-20 [facility] Comment on above: Performed By: #### L 503.5510, L501.6710, L100.0100, L500.4050, L3410.9994, L3410.9992, L300.3900 ####[facility] [address] [place], [address] Calcium [Mass/Vol] 9.1 mg/dL Normal 7.6-11.0 [facility] Comment on above: Performed By: #### L 503.5510, L501.6710, L100.0100, L500.4050, L3410.9994, L3410.9992, L300.3900 ####[facility] [address] [place], [address] Chloride [Moles/Vol] 103 mmol/L Normal 98-108 [facility] Comment on above: Performed By: #### L 503.5510, L501.6710, L100.0100, L500.4050, L3410.9994, L3410.9992, L300.3900 ####[facility] [address] [place], [address] CO2 [Moles/Vol] 21.9 mmol/L Normal 21.0-32.0 [facility] Comment on above: Performed By: #### L 503.5510, L501.6710, L100.0100, L500.4050, L3410.9994, L3410.9992, L300.3900 ####[facility] [address] [place], [address] Creatinine [Mass/Vol] 0.84 mg/dL Normal 0.70-1.[address] [facility] Comment on above: Performed By: #### L 503.5510, L501.6710, L100.0100, L500.4050, L3410.9994, L3410.9992, L300.3900 ####[facility] [address] [place], [address] GAP 11 Normal 5-15 [facility] Comment on above: Performed By: #### L 503.5510, L501.6710, L100.0100, L500.4050, L3410.9994, L3410.9992, L300.3900 ####[facility] [address] [place], [address] GFR/1.73 sq M.predicted among non-blacks MDRD (S/P/Bld) [Vol rate/Area] 84 mL/min/{1.73_m2} Normal >60 [facility] Comment on above: Result Comment: mL/m in/1.73m2 CKD-EPI Creatinine Equation (2020) Performed By: #### L 503.5510, L501.6710, L100.0100, L500.4050, L3410.9994, L3410.9992, L300.3900 ####[facility] [address] [place], [address] Globulin (S) [Mass/Vol] 4.6 g/dL High 2.2-4.2 [facility] Comment on above: Performed By: #### L 503.5510, L501.6710, L100.0100, L500.4050, L3410.9994, L3410.9992, L300.3900 ####[facility] [address] [place], [address] Glucose [Mass/Vol] 100 mg/dL High 70-99 [facility] Comment on above: Performed By: #### L 503.5510, L501.6710, L100.0100, L500.4050, L3410.9994, L3410.9992, L300.3900 ####[facility] [address] [place], [address] Potassium [Moles/Vol] 3.5 mmol/L Normal 3.3-5.[address] [facility] Comment on above: Performed By: #### L 503.5510, L501.6710, L100.0100, L500.4050, L3410.9994, L3410.9992, L300.3900 ####[facility] [address] [place], [address] Sodium [Moles/Vol] 135 mmol/L Normal 133-145 [facility] Comment on above: Performed By: #### L 503.5510, L501.6710, L100.0100, L500.4050, L3410.9994, L3410.9992, L300.3900 ####[facility] [address] [place], [place], [id number] T PROT 7.9 g/dL Normal 5.9-8.4 [facility] Comment on above: Performed By: #### L 503.5510, L501.6710, L100.0100, L500.4050, L3410.9994, L3410.9992, L300.3900 ####[facility] [address] [place], [place], [id number] Urea nitrogen [Mass/Vol] 8 mg/dL Normal 4-19 [facility] Comment on above: Performed By: #### L 503.5510, L501.6710, L100.0100, L500.4050, L3410.9994, L3410.9992, L300.3900 ####[facility] [address] [place], [place], [address] Eosinophil percentageOrdered By: Son Adams on 05-20-2025 Eosinophils/100 WBC (Bld) 4.3 % 0-5 [facility] Erythrocyte distribution wid th ratioOrdered By: Son Adams on 05-20-2025 Erythrocyte distribution width (RBC) [Ratio] 15.7 % High 11.6-14.6 [facility] Erythrocyte distribution wid th standard deviationOrdered By: Son Adams on 05-20-2025 Erythrocyte distribution width (RBC) [Ratio] 47.7 fl High 35.1-43.9 [facility] Glomerular filtration rate ( GFR) estimation/1.73 sq m using serum, plasma, or whole bOrdered By: Son Adams on 05-20-2025 GFR/1.73 sq M.predicted among non-blacks MDRD (S/P/Bld) [Vol rate/Area] 84 mL/min/{1.73_m2} >60 [facility] Comment on above: mL/min/1.73m2 CKD-EP I Creatinine Equation (2020) Hematocrit Auto (Bld) [Volum e fraction]Ordered By: Son Adams on 05-20-2025 Hematocrit (Bld) [Volume fraction] 36.6 % Low 37-47 [facility] Hemoglobin measurementOrdere d By: Son Adams on 05-20-2025 Hemoglobin (Bld) [Mass/Vol] 12.4 g/dL 12.0-15.0 [facility] Immature granulocytes/100 WB C Auto (Bld)Ordered By: Son Adams on 05-20-2025 Immature granulocytes/100 WBC (Bld) 0.400 % 0.0-0.9 [facility] Comment on above: IG% - Immature Granu locytes (promyelocytes, myelocytes and metamyelocytes) > 1% indicates that a LEFT SHIFT is Present. International normalized rat io (INR) calculationOrdered By: Son Adams on 05-20-2025 INR Coag (Bld) [Relative time] 1.3 {INR} [facility] Laboratory - Chemistry and C hemistry - challengeOrdered By: Son Adams on 05-20-2025 AST [Catalytic activity/Vol] 166 U/L High <32 [facility] MCV (mean corpuscular volume ) determinationOrdered By: Son Adams on 05-20-2025 MCV (RBC) [Entitic vol] 85.3 fL 81-99 [facility] Mean corpuscular hemoglobin (MCH) determinationOrdered By: Son Adams on 05-20-2025 MCH (RBC) [Entitic mass] 28.9 pg 27.0-32.0 [facility] Mean corpuscular hemoglobin concentration (MCHC) determinationOrdered By: Son Adams on 05-20-2025 MCHC (RBC) [Mass/Vol] 33.9 g/dL 32-[address] [facility] Mean platelet volume determi nationOrdered By: Son Adams on 05-20-2025 Platelet mean volume (Bld) [Entitic vol] 11.9 fL 6.2-12.0 [facility] Monocyte percentageOrdered B y: Son Adams on 05-20-2025 Monocytes/100 WBC (Bld) 8.3 % 0-10 [facility] Neutrophil percentageOrdered By: Son Adams on 05-20-2025 Neutrophils/100 WBC (Bld) 68.9 % 47-70 [facility] No Panel InformationOrdered By: Son Adams on 05-20-2025 166 U/L High <32 [facility] Nucleated red blood cell per centageOrdered By: Son Adams on 05-20-2025 Nucleated RBC/100 WBC (Bld) [Ratio] 0 % 0-5 [facility] Platelet countOrdered By: Darshana Adams on 05-20-2025 Platelets (Bld) [#/Vol] 69 10*3/uL Low 150-450 [facility] Potassium measurement (mass/ volume)Ordered By: Son Adams on 05-20-2025 Potassium (Unsp spec) [Mass/Vol] 3.5 mmol/L 3.3-5.1 [facility] Prothrombin Time w/INRon INR Coag (PPP) [Relative time] 1.3 {INR} Normal [facility] Comment on above: Performed By: #### L 503.5510, L501.6710, L100.0100, L500.4050, L3410.9994, L3410.9992, L300.3900 ####[facility] [address] [place], [address] PT Coag (PPP) [Time] 16.8 s High 11.7-14.9 [facility] Comment on above: Performed By: #### L 503.5510, L501.6710, L100.0100, L500.4050, L3410.9994, L3410.9992, L300.3900 ####[facility] [address] [place], [address] Prothrombin timeOrdered By: Son Adams on 05-20-2025 PT Coag (PPP) [Time] 16.8 s High 11.7-14.9 [facility] RBC Auto (Bld) [#/Vol]Ordere d By: Son Adams on 05-20-2025 RBC (Bld) [#/Vol] 4.29 10*6/uL 4.2-5.4 [facility] Serum creatinine measurement (mass/volume)Ordered By: Son Adams on 05-20-2025 Creatinine [Mass/Vol] 0.84 mg/dL 0.70-1.[address] [facility] Serum globulin measurementOr dered By: Son Adams on 05-20-2025 Globulin (S) [Mass/Vol] 4.6 g/dL High 2.2-4.2 [facility] Serum glucose measurement (m ass/volume)Ordered By: Son Adams on 05-20-2025 Glucose [Mass/Vol] 100 mg/dL High 70-99 [facility] Serum or plasma C reactive p rotein measurement (mass/volume)Ordered By: Son Adams on 05-20-2025 CRP [Mass/Vol] 20.20 mg/L High 0.0-3.0 [facility] Serum or plasma alanine rick otransferase (ALT) measurementOrdered By: Son Adams on 05-20-2025 ALT [Catalytic activity/Vol] 93 U/L High <35 [facility] Serum or plasma albumin latrice urement (mass/volume)Ordered By: Son Adams on 05-20-2025 Albumin [Mass/Vol] 3.4 g/dL Low 3.5-5.0 [facility] Serum or plasma albumin/glob ulin mass ratioOrdered By: Son Adams on 05-20-2025 Albumin/Globulin [Mass ratio] 0.7 {ratio} Low 0.9-2.4 [facility] Serum or plasma alkaline minda sphatase measurementOrdered By: Son Adams on 05-20-2025 ALP [Catalytic activity/Vol] 210 U/L High 35-104 [facility] Serum or plasma calcium latrice urement (mass/volume)Ordered By: Son Adams on 05-20-2025 Calcium [Mass/Vol] 9.1 mg/dL 7.6-11.0 [facility] Serum or plasma urea nitroge n measurement (mass/volume)Ordered By: Son Adams on 05-20-2025 Urea nitrogen [Mass/Vol] 8 mg/dL 4-19 [facility] Sodium levelOrdered By: Alysondebora ashraf Bryan on 05-20-2025 Sodium [Moles/Vol] 135 mmol/L 133-145 [facility] Total proteinOrdered By: Alyson madai Bryan on 05-20-2025 Protein [Mass/Vol] 7.9 g/dL 5.9-8.4 [facility] Venous blood ammonia measure mentOrdered By: Songrey Adams on 05-20-2025 Ammonia (P) [Moles/Vol] 37.0 umol/L 11-51 [facility] White blood cell (WBC) count Ordered By: Son Adams on 05-20-2025 WBC (Bld) [#/Vol] 7.9 10*3/uL 4.4-11.0 [facility] Gastroenterology Visit Repor ton 05-15-2025 Gastroenterology Visit Report Normal [facility] Forearm 2 Viewson 05-07-2025 Forearm 2 Views Normal [facility] Humerus min 2 Viewson 2024 Humerus min 2 Views Normal [facility] CNOVon 03-28-2025 CNOV Office Visit (PODIWS ) CAROLINA HIGHTOWER ([id number]) 1975 F Date Time Provider Department 03/28/25 10:00 AM MARIAH BENAVIDEZ PODIWS During your visit today, we recorded the following information about you: Maine Levin LPN 03/28/2025 1:01 PM Signed AMB ROOMING INTAKE FLOWSHEET DATA Risk Screening Do you have concerns about personal safety or safety in the home?: No Patient presents with: Left Foot - Nail Fungus, New Right Foot - Nail Fungus, New GERTRUDE Betancourt Matthew 03/28/2025 10:49 AM Addendum Powerstep Original Full length. Can purchase at [employer] and boots,shoes and more here in [place], [employer] in [place] or [place]. Also can find in [employer] in [facility]. Powersteps can also be purchased online, [...] toenails daily as directed; it clears fungus in about 10-20% of cases. - Keep your toenails trimmed straight across and cut them regularly to prevent snagging and painful tears. - Wear supportive lace-up athletic shoes ([place], [...] and lower your heels below step level. Obed Muller RN 03/28/2025 1:[address] Benavidez, Carolina was provided with Powerstep Comfortlast, size 7-8.5 Womens, and instructed/educated in its application, wear, and care. All questions were answered, and patient was able to demonstrate competence with the necessary skills to utilize the above equipment. NASH Zaidi Matthew 03/28/2025 1:01 PM Signed Subjective Carolina Katja is a 49-year-old female with a history [...] Depression GERD (gastroesophageal reflux disease) Hepatitis C 2014 Liver failure (HCC) 2014 Current Outpatient Medications [...] Grandfather Diabetes Paternal Grandmother other (lung) Paternal Grandfathe (more content not included)... Normal [facility] Absolute lymphocyte countOrd ered By: bulun Beam on 03-27-2025 Lymphocytes Auto (Unsp spec) [#/Vol] 1.18 10*3/uL 0.83-4.51 [facility] Absolute neutrophil countOrd ered By: Zebulun Beam on 03-27-2025 Neutrophils (Bld) [#/Vol] 4.0 10*3/uL 2.0-7.7 [facility] Anion gap in Serum or Plasma Ordered By: bulun Beam on 03-27-2025 Anion gap [Moles/Vol] 10 mmol/L 5-[address] [facility] Automated lymphocyte count a s percentage of total leukocytesOrdered By: bulun Beam on 03-27-2025 Lymphocytes/100 WBC Auto (Unsp spec) 19.4 % 19-41 [facility] BUN/creatinine ratioOrdered By: Replaced By [facility] on 03-27-2025 Urea nitrogen/Creatinine [Mass ratio] 9.4 mg/mg Low 10-20 [facility] Basophil percentageOrdered B y: Zebulun Beam on 03-27-2025 Basophils/100 WBC (Bld) 0.5 % 0-1 [facility] Bilirubin, totalOrdered By: [facility] on 03-27-2025 Bilirubin [Mass/Vol] 2.19 mg/dL High 0.00-1.30 [facility] CBC W/Diff, Automatedon Absolute Lymph 1.18 X10 3/uL Normal 0.83-4.51 [facility] Comment on above: Performed By: #### L 500.4050, L100.0100, L501.9520 ####[facility] [address] [place], [address] Absolute Neut 4.0 X10 3/uL Normal 2.0-7.7 [facility] Comment on above: Performed By: #### L 500.4050, L100.0100, L501.9520 ####[facility] [address] [place], [address] Basophils/100 WBC (Bld) 0.5 % Normal 0-1 [facility] Comment on above: Performed By: #### L 500.4050, L100.0100, L501.9520 ####[facility] [address] [place], [address] Eosinophils/100 WBC (Bld) 3.6 % Normal 0-5 [facility] Comment on above: Performed By: #### L 500.4050, L100.0100, L501.9520 ####[facility] [address] [place], [address] Erythrocyte distribution width (RBC) [Ratio] 15.0 % High 11.6-14.6 [facility] Comment on above: Performed By: #### L 500.4050, L100.0100, L501.9520 ####[facility] [address] [place], [address] Hematocrit (Bld) [Volume fraction] 33.7 % Low 37-47 [facility] Comment on above: Performed By: #### L 500.4050, L100.0100, L501.9520 ####[facility] [address] [place], [address] Hemoglobin (Bld) [Mass/Vol] 11.4 g/dL Low 12.0-15.0 [facility] Comment on above: Performed By: #### L 500.4050, L100.0100, L501.9520 ####[facility] [address] [place], [address] IG% 0.200 Normal 0.0-0.9 [facility] Comment on above: Result Comment: IG% - Immature Granulocytes (promyelocytes, myelocytes andmetamyelocytes) > 1% indicates that a LEFT SHIFT is Present. Performed By: #### L 500.4050, L100.0100, L501.9520 ####[facility] [address] [place], [address] Lymphocytes/100 WBC (Bld) 19.4 % Normal 19-41 [facility] Comment on above: Performed By: #### L 500.4050, L100.0100, L501.9520 ####[facility] [address] [place], [address] MCH (RBC) [Entitic mass] 31.1 pg Normal 27.0-32.0 [facility] Comment on above: Performed By: #### L 500.4050, L100.0100, L501.9520 ####[facility] [address] [place], [address] MCHC (RBC) [Mass/Vol] 33.8 g/dL Normal 32-[address] [facility] Comment on above: Performed By: #### L 500.4050, L100.0100, L501.9520 ####[facility] [address] [place], [address] MCV (RBC) [Entitic vol] 91.8 fL Normal 81-99 [facility] Comment on above: Performed By: #### L 500.4050, L100.0100, L501.9520 ####[facility] [address] [place], [address] Monocytes/100 WBC (Bld) 10.0 % Normal 0-10 [facility] Comment on above: Performed By: #### L 500.4050, L100.0100, L501.9520 ####[facility] [address] [place], [address] Neutrophils/100 WBC (Bld) 66.3 % Normal 47-70 [facility] Comment on above: Performed By: #### L 500.4050, L100.0100, L501.9520 ####[facility] [address] [place], [address] Nucleated RBC (Bld) [#/Vol] 0 10*3/uL Normal 0-5 [facility] Comment on above: Performed By: #### L 500.4050, L100.0100, L501.9520 ####[facility] [address] [place], [address] Platelet mean volume (Bld) [Entitic vol] 11.5 fL Normal 6.2-12.0 [facility] Comment on above: Performed By: #### L 500.4050, L100.0100, L501.9520 ####[facility] [address] [place], [address] Platelets (Bld) [#/Vol] 57 10*3/uL Low 150-450 [facility] Comment on above: Performed By: #### L 500.4050, L100.0100, L501.9520 ####[facility] [address] [place], [address] RBC (Bld) [#/Vol] 3.67 10*6/uL Low 4.2-5.4 [facility] Comment on above: Performed By: #### L 500.4050, L100.0100, L501.9520 ####[facility] [address] [place], [address] RDW SD 50.6 fl High 35.1-43.9 [facility] Comment on above: Performed By: #### L 500.4050, L100.0100, L501.9520 ####[facility] [address] [place], [address] WBC (Bld) [#/Vol] 6.1 10*3/uL Normal 4.4-11.0 [facility] Comment on above: Performed By: #### L 500.4050, L100.0100, L501.9520 ####[facility] [address] [place], [address] Carbon dioxide, total [Moles /volume] in Central venous bloodOrdered By: Eyad Beam on 03-27-2025 CO2 [Moles/Vol] 19.5 mmol/L Low 21.0-32.0 [facility] Chest PA and Lateralon 03-27 Chest PA and Lateral Normal [facility] Chloride assayOrdered By: Winston gomez Beam on 03-27-2025 Chloride [Moles/Vol] 105 mmol/L 98-108 [facility] Comprehensive Metabolic Prof ilon 03-27-2025 Albumin [Mass/Vol] 3.2 g/dL Low 3.5-5.0 [facility] Comment on above: Performed By: #### L 500.4050, L100.0100, L501.9520 ####[facility] [address] [place], [address] Albumin/Globulin [Mass ratio] 0.8 {ratio} Low 0.9-2.4 [facility] Comment on above: Performed By: #### L 500.4050, L100.0100, L501.9520 ####[facility] [address] [place], [address] ALK PHOS 168 U/L High 35-104 [facility] Comment on above: Performed By: #### L 500.4050, L100.0100, L501.9520 ####[facility] [address] [place], [address] ALT [Catalytic activity/Vol] 38 U/L High <=34 [facility] Comment on above: Performed By: #### L 500.4050, L100.0100, L501.9520 ####[facility] [address] [place], [address] AST [Catalytic activity/Vol] 81 U/L High <=31 [facility] Comment on above: Performed By: #### L 500.4050, L100.0100, L501.9520 ####[facility] [address] [place], [address] Bilirubin [Mass/Vol] 2.19 mg/dL High 0.00-1.30 [facility] Comment on above: Performed By: #### L 500.4050, L100.0100, L501.9520 ####[facility] [address] [place], [address] BUN/CRE 9.4 RATIO Low 10-20 [facility] Comment on above: Performed By: #### L 500.4050, L100.0100, L501.9520 ####[facility] [address] [place], [address] Calcium [Mass/Vol] 9.4 mg/dL Normal 7.6-11.0 [facility] Comment on above: Performed By: #### L 500.4050, L100.0100, L501.9520 ####[facility] [address] [place], [address] Chloride [Moles/Vol] 105 mmol/L Normal 98-108 [facility] Comment on above: Performed By: #### L 500.4050, L100.0100, L501.9520 ####[facility] [address] [place], [address] CO2 [Moles/Vol] 19.5 mmol/L Low 21.0-32.0 [facility] Comment on above: Performed By: #### L 500.4050, L100.0100, L501.9520 ####[facility] [address] [place], [address] Creatinine [Mass/Vol] 0.96 mg/dL Normal 0.70-1.[address] [facility] Comment on above: Performed By: #### L 500.4050, L100.0100, L501.9520 ####[facility] [address] [place], [address] GAP 10 Normal 5-15 [facility] Comment on above: Performed By: #### L 500.4050, L100.0100, L501.9520 ####[facility] [address] [place], [address] GFR/1.73 sq M.predicted among non-blacks MDRD (S/P/Bld) [Vol rate/Area] 72 mL/min/{1.73_m2} Normal >60 [facility] Comment on above: Result Comment: mL/m in/1.73m2 CKD-EPI Creatinine Equation (2020) Performed By: #### L 500.4050, L100.0100, L501.9520 ####[facility] [address] [place], [address] Globulin (S) [Mass/Vol] 3.8 g/dL Normal 2.2-4.2 [facility] Comment on above: Performed By: #### L 500.4050, L100.0100, L501.9520 ####[facility] [address] [place], [address] Glucose [Mass/Vol] 109 mg/dL High 70-99 [facility] Comment on above: Performed By: #### L 500.4050, L100.0100, L501.9520 ####[facility] [address] [place], [address] Potassium [Moles/Vol] 3.8 mmol/L Normal 3.3-5.[address] [facility] Comment on above: Performed By: #### L 500.4050, L100.0100, L501.9520 ####[facility] [address] [place], [address] Sodium [Moles/Vol] 135 mmol/L Normal 133-145 [facility] Comment on above: Performed By: #### L 500.4050, L100.0100, L501.9520 ####[facility] [address] [place], [address] T PROT 7.0 g/dL Normal 5.9-8.4 [facility] Comment on above: Performed By: #### L 500.4050, L100.0100, L501.9520 ####[facility] [address] [place], [address] Urea nitrogen [Mass/Vol] 9 mg/dL Normal 4-19 [facility] Comment on above: Performed By: #### L 500.4050, L100.0100, L501.9520 ####[facility] [address] [place], [address] Eosinophil percentageOrdered By: Eyad Saeed on 03-27-2025 Eosinophils/100 WBC (Bld) 3.6 % 0-5 [facility] Erythrocyte distribution wid th ratioOrdered By: Lulin Beam on 03-27-2025 Erythrocyte distribution width (RBC) [Ratio] 15.0 % High 11.6-14.6 [facility] Erythrocyte distribution wid th standard deviationOrdered By: benitan Beam on 03-27-2025 Erythrocyte distribution width (RBC) [Ratio] 50.6 fl High 35.1-43.9 [facility] Glomerular filtration rate ( GFR) estimation/1.73 sq m using serum, plasma, or whole bOrdered By: Eyad Saeed on 03-27-2025 GFR/1.73 sq M.predicted among non-blacks MDRD (S/P/Bld) [Vol rate/Area] 72 mL/min/{1.73_m2} >60 [facility] Comment on above: mL/min/1.73m2 CKD-EP I Creatinine Equation (2020) Hematocrit Auto (Bld) [Volum e fraction]Ordered By: Eyad Saeed on 03-27-2025 Hematocrit (Bld) [Volume fraction] 33.7 % Low 37-47 [facility] Hemoglobin measurementOrdere d By: Eyad Saeed on 03-27-2025 Hemoglobin (Bld) [Mass/Vol] 11.4 g/dL Low 12.0-15.0 [facility] Immature granulocytes/100 WB C Auto (Bld)Ordered By: Lulin Darlin on 03-27-2025 Immature granulocytes/100 WBC (Bld) 0.200 % 0.0-0.9 [facility] Comment on above: IG% - Immature Granu locytes (promyelocytes, myelocytes and metamyelocytes) > 1% indicates that a LEFT SHIFT is Present. Laboratory - Chemistry and C hemistry - challengeOrdered By: Lulin Darlin on 03-27-2025 AST [Catalytic activity/Vol] 81 U/L High <32 [facility] MCV (mean corpuscular volume ) determinationOrdered By: Carlitostimothy Saeed on 03-27-2025 MCV (RBC) [Entitic vol] 91.8 fL 81-99 [facility] Mean corpuscular hemoglobin (MCH) determinationOrdered By: [facility] Darlin on 03-27-2025 MCH (RBC) [Entitic mass] 31.1 pg 27.0-32.0 [facility] Mean corpuscular hemoglobin concentration (MCHC) determinationOrdered By: [facility] Beam on 03-27-2025 MCHC (RBC) [Mass/Vol] 33.8 g/dL 32-[address] [facility] Mean platelet volume determi nationOrdered By: benitan Beam on 03-27-2025 Platelet mean volume (Bld) [Entitic vol] 11.5 fL 6.2-12.0 [facility] Monocyte percentageOrdered B y: Eyad Beam on 03-27-2025 Monocytes/100 WBC (Bld) 10.0 % 0-10 [facility] Neutrophil percentageOrdered By: [facility] Beam on 03-27-2025 Neutrophils/100 WBC (Bld) 66.3 % 47-70 [facility] No Panel InformationOrdered By: benitan Beam on 03-27-2025 81 U/L High <32 [facility] Nucleated red blood cell per centageOrdered By: patricia Saeed on 03-27-2025 Nucleated RBC/100 WBC (Bld) [Ratio] 0 % 0-5 [facility] Platelet countOrdered By: Winston Saeed on 03-27-2025 Platelets (Bld) [#/Vol] 57 10*3/uL Low 150-450 [facility] Potassium measurement (mass/ volume)Ordered By: Eyad Saeed on 03-27-2025 Potassium (Unsp spec) [Mass/Vol] 3.8 mmol/L 3.3-5.1 [facility] RBC Auto (Bld) [#/Vol]Ordere d By: Eyad Saeed on 03-27-2025 RBC (Bld) [#/Vol] 3.67 10*6/uL Low 4.2-5.4 [facility] Serum creatinine measurement (mass/volume)Ordered By: Eyad Saeed on 03-27-2025 Creatinine [Mass/Vol] 0.96 mg/dL 0.70-1.[address] [facility] Serum globulin measurementOr dered By: Eyad Saeed on 03-27-2025 Globulin (S) [Mass/Vol] 3.8 g/dL 2.2-4.2 [facility] Serum glucose measurement (m ass/volume)Ordered By: Eyad Saeed on 03-27-2025 Glucose [Mass/Vol] 109 mg/dL High 70-99 [facility] Serum or plasma alanine rick otransferase (ALT) measurementOrdered By: Eyad Saeed on 03-27-2025 ALT [Catalytic activity/Vol] 38 U/L High <35 [facility] Serum or plasma albumin latrice urement (mass/volume)Ordered By: Eyad Saeed on 03-27-2025 Albumin [Mass/Vol] 3.2 g/dL Low 3.5-5.0 [facility] Serum or plasma albumin/glob ulin mass ratioOrdered By: Eyad Saeed on 03-27-2025 Albumin/Globulin [Mass ratio] 0.8 {ratio} Low 0.9-2.4 [facility] Serum or plasma alkaline minda sphatase measurementOrdered By: Eyad Saeed on 03-27-2025 ALP [Catalytic activity/Vol] 168 U/L High 35-104 [facility] Serum or plasma calcium latrice urement (mass/volume)Ordered By: Eyad Saeed on 03-27-2025 Calcium [Mass/Vol] 9.4 mg/dL 7.6-11.0 [facility] Serum or plasma urea nitroge n measurement (mass/volume)Ordered By: Zebulun Beam on 03-27-2025 Urea nitrogen [Mass/Vol] 9 mg/dL 4-19 [facility] Sodium levelOrdered By: Winstonbu alex Beam on 03-27-2025 Sodium [Moles/Vol] 135 mmol/L 133-145 [facility] TSH DL <= 0.005 mIU/L QnOrde red By: Zebulun Beam on 03-27-2025 TSH Qn 2.060 uIU/mL 0.300-4.200 [facility] Thyroid Stim Hormone (TSH)on 03-27-2025 TSH 2.060 uIU/mL Normal 0.300-4.200 [facility] Comment on above: Performed By: #### L 500.4050, L100.0100, L501.9520 ####[facility] [address] [place], [address] Total proteinOrdered By: Johnie Saeed on 03-27-2025 Protein [Mass/Vol] 7.0 g/dL 5.9-8.4 [facility] White blood cell (WBC) count Ordered By: Eyad Beam on 03-27-2025 WBC (Bld) [#/Vol] 6.1 10*3/uL 4.4-11.0 [facility] DEISY w/ Reflex Mult Confirmon 03-25-2025 ANTI-DNA (DS)AB TNP Normal [facility] Comment on above: Performed By: #### L 501.9985, L3300.0700, L3200.0500, L503.6030, L3130.0010, L501.4700, L3400.0700, L3100.1850, L503.6550, L300.3900, L500.4100, L7000.7000, L3000.0375, L3890.6202, L803.2200, L501.6710, L506.0400, L3300.0100, L3100.5450, L3100.5000, L501.9520, L3100.3425, L800.1280, L3100.5020, L503.5510, L501.5101, L3200.1100, L500.4050, L506.1001 ####[facility] [address] [facility] [place], [place], [id number] ANTI-SS-A TNP Normal [facility] Comment on above: Performed By: #### L 501.9985, L3300.0700, L3200.0500, L503.6030, L3130.0010, L501.4700, L3400.0700, L3100.1850, L503.6550, L300.3900, L500.4100, L7000.7000, L3000.0375, L3890.6202, L803.2200, L501.6710, L506.0400, L3300.0100, L3100.5450, L3100.5000, L501.9520, L3100.3425, L800.1280, L3100.5020, L503.5510, L501.5101, L3200.1100, L500.4050, L506.1001 ####[facility] [address] [facility] [place], [place], [id number] ANTI-SS-B TNP [facility] Comment on above: Performed By: #### L 501.9985, L3300.0700, L3200.0500, L503.6030, L3130.0010, L501.4700, L3400.0700, L3100.1850, L503.6550, L300.3900, L500.4100, L7000.7000, L3000.0375, L3890.6202, L803.2200, L501.6710, L506.0400, L3300.0100, L3100.5450, L3100.5000, L501.9520, L3100.3425, L800.1280, L3100.5020, L503.5510, L501.5101, L3200.1100, L500.4050, L506.1001 ####[facility] [address] [place], [address] EGD Reporton 03-15-2025 EGD Report Normal [facility] Immunohistochemical Stainson 03-15-2025 Immunohistochemical Stains Normal [facility] Comment on above: Performed By: #### P IMHI ####[facility] [address], [address] MR/POSTOP.ANEon 03-15-2025 MR/POSTOP.ANE Normal [facility] MR/HOGDXCAX0er 03-15-2025 MR/POSTOPAN2 Normal [facility] AFP, Tumor Markeron 03-12-20 AFP TUMOR DACIA 56.9 ng/mL High 0.0-9.2 [facility] Comment on above: Order Comment: Test( s) [id number]-Qgfrcb, Serum or Plasmawas developed and its performance characteristicsdetermined by [employer]. It has not been cleared or approvedby the Food and Drug Administration.NElevated AFP Result Comment: [employer] Electrochemiluminescence Immunoassay(ECLIA)Values obtained with different assay methods or kits cannotbe used interchangeably. Results cannot be interpreted asabsolute evidence of the presence or absence of malignantdisease.This test is not interpretable in females. Performed By: #### L 501.9985, L3300.0700, L3200.0500, L503.6030, L3130.0010, L501.4700, L3400.0700, L3100.1850, L503.6550, L300.3900, L500.4100, L7000.7000, L3000.0375, L3890.6202, L803.2200, L501.6710, L506.0400, L3300.0100, L3100.5450, L3100.5000, L501.9520, L3100.3425, L800.1280, L3100.5020, L503.5510, L501.5101, L3200.1100, L500.4050, L506.1001 ####[facility] [address] [place], [place], [address] Anti-Smooth Muscle ABSon ANTISMOOTH MUSC 10 Units Normal 0-19 [facility] Comment on above: Order Comment: Test( s) [id number], Serum or Plasmawas developed and its performance characteristicsdetermined by [employer]. It has not been cleared or approvedby the Food and Drug Administration. Result Comment: Nega tive 0 - 19 Weak positive 20 - 30 Moderate to strong positive >30 Actin Antibodies are found in 52-85% of patients with autoimmune hepatitis or chronic active hepatitis and in 22% of patients with primary biliary cirrhosis. Performed By: #### L 501.9985, L3300.0700, L3200.0500, L503.6030, L3130.0010, L501.4700, L3400.0700, L3100.1850, L503.6550, L300.3900, L500.4100, L7000.7000, L3000.0375, L3890.6202, L803.2200, L501.6710, L506.0400, L3300.0100, L3100.5450, L3100.5000, L501.9520, L3100.3425, L800.1280, L3100.5020, L503.5510, L501.5101, L3200.1100, L500.4050, L506.1001 ####[facility] [address] [place], [place], [id number] Cancer Antigen 125on 025 CA 125 25.7 U/mL Normal 0.0-38.1 [facility] Comment on above: Order Comment: Test( s) [id number]-Bgdqnk, Serum or Plasmawas developed and its performance characteristicsdetermined by [employer]. It has not been cleared or approvedby the Food and Drug Administration. Result Comment: [employer] [facility] Electrochemiluminescence Immunoassay(ECLIA)Values obtained with different assay methods or kits cannotbe used interchangeably. Results cannot be interpreted asabsolute evidence of the presence or absence of malignantdisease. Performed By: #### L 501.9985, L3300.0700, L3200.0500, L503.6030, L3130.0010, L501.4700, L3400.0700, L3100.1850, L503.6550, L300.3900, L500.4100, L7000.7000, L3000.0375, L3890.6202, L803.2200, L501.6710, L506.0400, L3300.0100, L3100.5450, L3100.5000, L501.9520, L3100.3425, L800.1280, L3100.5020, L503.5510, L501.5101, L3200.1100, L500.4050, L506.1001 ####[facility] [address] [place], [address] Carbohydrate AG 19-9on 03-12 CA 19-9 36 U/mL High 0-35 [facility] Comment on above: Order Comment: Test( s) [id number]-Eearik, Serum or Plasmawas developed and its performance characteristicsdetermined by [employer]. It has not been cleared or approvedby the Food and Drug Administration. Result Comment: [employer] [facility] Electrochemiluminescence Immunoassay(ECLIA)Values obtained with different assay methods or kits cannotbe used interchangeably. Results cannot be interpreted asabsolute evidence of the presence or absence of malignantdisease. Performed By: #### L 501.9985, L3300.0700, L3200.0500, L503.6030, L3130.0010, L501.4700, L3400.0700, L3100.1850, L503.6550, L300.3900, L500.4100, L7000.7000, L3000.0375, L3890.6202, L803.2200, L501.6710, L506.0400, L3300.0100, L3100.5450, L3100.5000, L501.9520, L3100.3425, L800.1280, L3100.5020, L503.5510, L501.5101, L3200.1100, L500.4050, L506.1001 ####[facility] [address] [place], [place], [id number] Ceruloplasminon 03-12-2025 CERULOPLASMIN 17.4 mg/dL Low 19.0-39.0 [facility] Comment on above: Order Comment: Test( s) [id number]-Rehdol, Serum or Plasmawas developed and its performance characteristicsdetermined by [employer]. It has not been cleared or approvedby the Food and Drug Administration. Performed By: #### L 501.9985, L3300.0700, L3200.0500, L503.6030, L3130.0010, L501.4700, L3400.0700, L3100.1850, L503.6550, L300.3900, L500.4100, L7000.7000, L3000.0375, L3890.6202, L803.2200, L501.6710, L506.0400, L3300.0100, L3100.5450, L3100.5000, L501.9520, L3100.3425, L800.1280, L3100.5020, L503.5510, L501.5101, L3200.1100, L500.4050, L506.1001 ####[facility] [address] [place], [place], [id number] Copper, Serum or Plasmaon COPPER, SERUM 61 ug/dL Low 80-158 [facility] Comment on above: Order Comment: Test( s) 877855-Vkmzks, Serum or Plasmawas developed and its performance characteristicsdetermined by [facility]. It has not been cleared or approvedby the Food and Drug Administration. Result Comment: Dete ction Limit = 5 Performed By: #### L 501.9985, L3300.0700, L3200.0500, L503.6030, L3130.0010, L501.4700, L3400.0700, L3100.1850, L503.6550, L300.3900, L500.4100, L7000.7000, L3000.0375, L3890.6202, L803.2200, L501.6710, L506.0400, L3300.0100, L3100.5450, L3100.5000, L501.9520, L3100.3425, L800.1280, L3100.5020, L503.5510, L501.5101, L3200.1100, L500.4050, L506.1001 ####[facility] [address] [facility] [place], [address] Haptoglobinon 03-12-2025 HAPTOGLOBIN < 10 Low 33-346 [facility] Comment on above: Order Comment: Test( s) 537387-Zgpnzw, Serum or Plasmawas developed and its performance characteristicsdetermined by [facility]. It has not been cleared or approvedby the Food and Drug Administration. Result Comment: Perf ormed at: - [address] [id number] Director: Tee Reyna PhD, Phone: [phone] at: [facility] [address] [id number] Director: Michelle Rose MD, Phone: [phone] Performed By: #### L 501.9985, L3300.0700, L3200.0500, L503.6030, L3130.0010, L501.4700, L3400.0700, L3100.1850, L503.6550, L300.3900, L500.4100, L7000.7000, L3000.0375, L3890.6202, L803.2200, L501.6710, L506.0400, L3300.0100, L3100.5450, L3100.5000, L501.9520, L3100.3425, L800.1280, L3100.5020, L503.5510, L501.5101, L3200.1100, L500.4050, L506.1001 ####[facility] [address] [facility] 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 [facility] Comment on above: Order Comment: Test( s) 292946-Kassfy, Serum or Plasmawas developed and its performance characteristicsdetermined by [facility]. It has not been cleared or approvedby the Food and Drug Administration. Result Comment: Resu lt Units: log10 IU/mL Performed By: #### L 501.9985, L3300.0700, L3200.0500, L503.6030, L3130.0010, L501.4700, L3400.0700, L3100.1850, L503.6550, L300.3900, L500.4100, L7000.7000, L3000.0375, L3890.6202, L803.2200, L501.6710, L506.0400, L3300.0100, L3100.5450, L3100.5000, L501.9520, L3100.3425, L800.1280, L3100.5020, L503.5510, L501.5101, L3200.1100, L500.4050, L506.1001 ####[facility] [address] [place], [place], [address] HCV QT RNA PCR 3430 IU/mL Normal . [facility] Comment on above: Order Comment: Test( s) 999193-Wyrphx, Serum or Plasmawas developed and its performance characteristicsdetermined by [facility]. It has not been cleared or approvedby the Food and Drug Administration. Performed By: #### L 501.9985, L3300.0700, L3200.0500, L503.6030, L3130.0010, L501.4700, L3400.0700, L3100.1850, L503.6550, L300.3900, L500.4100, L7000.7000, L3000.0375, L3890.6202, L803.2200, L501.6710, L506.0400, L3300.0100, L3100.5450, L3100.5000, L501.9520, L3100.3425, L800.1280, L3100.5020, L503.5510, L501.5101, L3200.1100, L500.4050, L506.1001 ####[facility] [address] [facility] [address]. [place], [place], [address] TEST INFO: Comment Normal . [facility] Comment on above: Order Comment: Test( s) 331669-Imadmx, Serum or Plasmawas developed and its performance characteristicsdetermined by [facility]. It has not been cleared or approvedby the Food and Drug Administration. Result Comment: The quantitative range of this assay is 15 IU/mL to 100million IU/mL. Performed By: #### L 501.9985, L3300.0700, L3200.0500, L503.6030, L3130.0010, L501.4700, L3400.0700, L3100.1850, L503.6550, L300.3900, L500.4100, L7000.7000, L3000.0375, L3890.6202, L803.2200, L501.6710, L506.0400, L3300.0100, L3100.5450, L3100.5000, L501.9520, L3100.3425, L800.1280, L3100.5020, L503.5510, L501.5101, L3200.1100, L500.4050, L506.1001 ####[facility] [address] [facility] [address] [place], [place], [address] Hepatitis Panel Acuteon 06- HCV Interpretat Comment Normal . [facility] Comment on above: Order Comment: Test( s) 711099-Zzrrlp, Serum or Plasmawas developed and its performance characteristicsdetermined by [facility]. It has not been cleared or approvedby the Food and Drug Administration. Result Comment: Posi tive HCV antibody screen with the presence of HCV RNAis consistent with active infection. Performed By: #### L 501.9985, L3300.0700, L3200.0500, L503.6030, L3130.0010, L501.4700, L3400.0700, L3100.1850, L503.6550, L300.3900, L500.4100, L7000.7000, L3000.0375, L3890.6202, L803.2200, L501.6710, L506.0400, L3300.0100, L3100.5450, L3100.5000, L501.9520, L3100.3425, L800.1280, L3100.5020, L503.5510, L501.5101, L3200.1100, L500.4050, L506.1001 ####[facility] [address] [place], [address] HCV log 10 3.597 Normal . [facility] Comment on above: Order Comment: Test( s) 789468-Cojggo, Serum or Plasmawas developed and its performance characteristicsdetermined by [facility]. It has not been cleared or approvedby the Food and Drug Administration. Result Comment: Resu lt Units: log10 IU/mL Performed By: #### L 501.9985, L3300.0700, L3200.0500, L503.6030, L3130.0010, L501.4700, L3400.0700, L3100.1850, L503.6550, L300.3900, L500.4100, L7000.7000, L3000.0375, L3890.6202, L803.2200, L501.6710, L506.0400, L3300.0100, L3100.5450, L3100.5000, L501.9520, L3100.3425, L800.1280, L3100.5020, L503.5510, L501.5101, L3200.1100, L500.4050, L506.1001 ####[facility] [address] [place], [place], [address] HEP B CORE,IgM Negative Normal Negative [facility] Comment on above: Order Comment: Test( s) 637134-Hczrjo, Serum or Plasmawas developed and its performance characteristicsdetermined by [facility]. It has not been cleared or approvedby the Food and Drug Administration. Performed By: #### L 501.9985, L3300.0700, L3200.0500, L503.6030, L3130.0010, L501.4700, L3400.0700, L3100.1850, L503.6550, L300.3900, L500.4100, L7000.7000, L3000.0375, L3890.6202, L803.2200, L501.6710, L506.0400, L3300.0100, L3100.5450, L3100.5000, L501.9520, L3100.3425, L800.1280, L3100.5020, L503.5510, L501.5101, L3200.1100, L500.4050, L506.1001 ####[facility] [address] [facility]. [place], [place], [address] HEP B SURF AG Negative Normal Negative [facility] Comment on above: Order Comment: Test( s) 841603-Zrcshr, Serum or Plasmawas developed and its performance characteristicsdetermined by [facility]. It has not been cleared or approvedby the Food and Drug Administration. Performed By: #### L 501.9985, L3300.0700, L3200.0500, L503.6030, L3130.0010, L501.4700, L3400.0700, L3100.1850, L503.6550, L300.3900, L500.4100, L7000.7000, L3000.0375, L3890.6202, L803.2200, L501.6710, L506.0400, L3300.0100, L3100.5450, L3100.5000, L501.9520, L3100.3425, L800.1280, L3100.5020, L503.5510, L501.5101, L3200.1100, L500.4050, L506.1001 ####[facility] [address] [facility]. [place], [place], [address] Hep C Quant 3950 IU/mL Normal . [facility] Comment on above: Order Comment: Test( s) 770616-Gxttnf, Serum or Plasmawas developed and its performance characteristicsdetermined by [facility]. It has not been cleared or approvedby the Food and Drug Administration. Performed By: #### L 501.9985, L3300.0700, L3200.0500, L503.6030, L3130.0010, L501.4700, L3400.0700, L3100.1850, L503.6550, L300.3900, L500.4100, L7000.7000, L3000.0375, L3890.6202, L803.2200, L501.6710, L506.0400, L3300.0100, L3100.5450, L3100.5000, L501.9520, L3100.3425, L800.1280, L3100.5020, L503.5510, L501.5101, L3200.1100, L500.4050, L506.1001 ####[facility] [address] [place], [place], [id number] HEP C VIRUS AB Reactive Abnormal Non Reactive [facility] Comment on above: Order Comment: Test( s) 018732-Fjuvmf, Serum or Plasmawas developed and its performance characteristicsdetermined by [facility]. It has not been cleared or approvedby the Food and Drug Administration. Result Comment: Brandyn nt Requested Flag Performed By: #### L 501.9985, L3300.0700, L3200.0500, L503.6030, L3130.0010, L501.4700, L3400.0700, L3100.1850, L503.6550, L300.3900, L500.4100, L7000.7000, L3000.0375, L3890.6202, L803.2200, L501.6710, L506.0400, L3300.0100, L3100.5450, L3100.5000, L501.9520, L3100.3425, L800.1280, L3100.5020, L503.5510, L501.5101, L3200.1100, L500.4050, L506.1001 ####[facility] [address] [place], [address] HEPATITIS A-IgM Negative Normal Negative [facility] Comment on above: Order Comment: Test( s) 851809-Ajodgr, Serum or Plasmawas developed and its performance characteristicsdetermined by [facility]. It has not been cleared or approvedby the Food and Drug Administration. Result Comment: A ne gative anti-HAV IgM result suggests no recent orcurrent HAV infection. Performed By: #### L 501.9985, L3300.0700, L3200.0500, L503.6030, L3130.0010, L501.4700, L3400.0700, L3100.1850, L503.6550, L300.3900, L500.4100, L7000.7000, L3000.0375, L3890.6202, L803.2200, L501.6710, L506.0400, L3300.0100, L3100.5450, L3100.5000, L501.9520, L3100.3425, L800.1280, L3100.5020, L503.5510, L501.5101, L3200.1100, L500.4050, L506.1001 ####[facility] [address] [place], [address] Test Informatio Comment Normal . [facility] Comment on above: Order Comment: Test( s) 226625-Xawzmd, Serum or Plasmawas developed and its performance characteristicsdetermined by [facility]. It has not been cleared or approvedby the Food and Drug Administration. Result Comment: The quantitative range of this assay is 15 IU/mL to 100million IU/mL. Performed By: #### L 501.9985, L3300.0700, L3200.0500, L503.6030, L3130.0010, L501.4700, L3400.0700, L3100.1850, L503.6550, L300.3900, L500.4100, L7000.7000, L3000.0375, L3890.6202, L803.2200, L501.6710, L506.0400, L3300.0100, L3100.5450, L3100.5000, L501.9520, L3100.3425, L800.1280, L3100.5020, L503.5510, L501.5101, L3200.1100, L500.4050, L506.1001 ####[facility] [address] [place], [address] GIO + Protein Elect, Serumon 03-12-2025 Albumin [Mass/Vol] 3.4 g/dL Normal 2.9-4.4 [facility] Comment on above: Order Comment: Test( s) 323250-Ddcnjf, Serum or Plasmawas developed and its performance characteristicsdetermined by [facility]. It has not been cleared or approvedby the Food and Drug Administration.NElevated AFP Performed By: #### L 501.9985, L3300.0700, L3200.0500, L503.6030, L3130.0010, L501.4700, L3400.0700, L3100.1850, L503.6550, L300.3900, L500.4100, L7000.7000, L3000.0375, L3890.6202, L803.2200, L501.6710, L506.0400, L3300.0100, L3100.5450, L3100.5000, L501.9520, L3100.3425, L800.1280, L3100.5020, L503.5510, L501.5101, L3200.1100, L500.4050, L506.1001 ####[facility] [address] [place], [place], [address] Albumin/Globulin [Mass ratio] 0.9 {ratio} Normal 0.7-1.7 [facility] Comment on above: Order Comment: Test( s) 423314-Kfeabo, Serum or Plasmawas developed and its performance characteristicsdetermined by [facility]. It has not been cleared or approvedby the Food and Drug Administration.NElevated AFP Performed By: #### L 501.9985, L3300.0700, L3200.0500, L503.6030, L3130.0010, L501.4700, L3400.0700, L3100.1850, L503.6550, L300.3900, L500.4100, L7000.7000, L3000.0375, L3890.6202, L803.2200, L501.6710, L506.0400, L3300.0100, L3100.5450, L3100.5000, L501.9520, L3100.3425, L800.1280, L3100.5020, L503.5510, L501.5101, L3200.1100, L500.4050, L506.1001 ####[facility] [address] [place], [address] JTVSM-2-MYSY 0.3 g/dL Normal 0.0-0.4 [facility] Comment on above: Order Comment: Test( s) 897091-Awvalv, Serum or Plasmawas developed and its performance characteristicsdetermined by [facility]. It has not been cleared or approvedby the Food and Drug Administration.NElevated AFP Performed By: #### L 501.9985, L3300.0700, L3200.0500, L503.6030, L3130.0010, L501.4700, L3400.0700, L3100.1850, L503.6550, L300.3900, L500.4100, L7000.7000, L3000.0375, L3890.6202, L803.2200, L501.6710, L506.0400, L3300.0100, L3100.5450, L3100.5000, L501.9520, L3100.3425, L800.1280, L3100.5020, L503.5510, L501.5101, L3200.1100, L500.4050, L506.1001 ####[facility] [address] [place], [address] TLGMU-5-CXBA 0.4 g/dL Normal 0.4-1.0 [facility] Comment on above: Order Comment: Test( s) 895422-Yhstqz, Serum or Plasmawas developed and its performance characteristicsdetermined by [facility]. It has not been cleared or approvedby the Food and Drug Administration.NElevated AFP Performed By: #### L 501.9985, L3300.0700, L3200.0500, L503.6030, L3130.0010, L501.4700, L3400.0700, L3100.1850, L503.6550, L300.3900, L500.4100, L7000.7000, L3000.0375, L3890.6202, L803.2200, L501.6710, L506.0400, L3300.0100, L3100.5450, L3100.5000, L501.9520, L3100.3425, L800.1280, L3100.5020, L503.5510, L501.5101, L3200.1100, L500.4050, L506.1001 ####[facility] [address] [place], [address] BETA GLOBULIN 0.8 g/dL Normal 0.7-1.3 [facility] Comment on above: Order Comment: Test( s) 345359-Balulb, Serum or Plasmawas developed and its performance characteristicsdetermined by [facility]. It has not been cleared or approvedby the Food and Drug Administration.NElevated AFP Performed By: #### L 501.9985, L3300.0700, L3200.0500, L503.6030, L3130.0010, L501.4700, L3400.0700, L3100.1850, L503.6550, L300.3900, L500.4100, L7000.7000, L3000.0375, L3890.6202, L803.2200, L501.6710, L506.0400, L3300.0100, L3100.5450, L3100.5000, L501.9520, L3100.3425, L800.1280, L3100.5020, L503.5510, L501.5101, L3200.1100, L500.4050, L506.1001 ####[facility] [address] [facility] [place], [address] GAMMA GLOBULIN 2.7 g/dL High 0.4-1.8 [facility] Comment on above: Order Comment: Test( s) 201996-Xjcmvk, Serum or Plasmawas developed and its performance characteristicsdetermined by [facility]. It has not been cleared or approvedby the Food and Drug Administration.NElevated AFP Performed By: #### L 501.9985, L3300.0700, L3200.0500, L503.6030, L3130.0010, L501.4700, L3400.0700, L3100.1850, L503.6550, L300.3900, L500.4100, L7000.7000, L3000.0375, L3890.6202, L803.2200, L501.6710, L506.0400, L3300.0100, L3100.5450, L3100.5000, L501.9520, L3100.3425, L800.1280, L3100.5020, L503.5510, L501.5101, L3200.1100, L500.4050, L506.1001 ####[facility] [address] [place], [address] Globulin (S) [Mass/Vol] 4.2 g/dL Abnormal 2.2-3.9 [facility] Comment on above: Order Comment: Test( s) 797339-Wpstdi, Serum or Plasmawas developed and its performance characteristicsdetermined by [facility]. It has not been cleared or approvedby the Food and Drug Administration.NElevated AFP Performed By: #### L 501.9985, L3300.0700, L3200.0500, L503.6030, L3130.0010, L501.4700, L3400.0700, L3100.1850, L503.6550, L300.3900, L500.4100, L7000.7000, L3000.0375, L3890.6202, L803.2200, L501.6710, L506.0400, L3300.0100, L3100.5450, L3100.5000, L501.9520, L3100.3425, L800.1280, L3100.5020, L503.5510, L501.5101, L3200.1100, L500.4050, L506.1001 ####[facility] [address] [place], [place], [address] GIO RESULT,S Comment Normal . [facility] Comment on above: Order Comment: Test( s) 284974-Gfigcw, Serum or Plasmawas developed and its performance characteristicsdetermined by [facility]. It has not been cleared or approvedby the Food and Drug Administration.NElevated AFP Result Comment: No m onoclonality detected. Performed By: #### L 501.9985, L3300.0700, L3200.0500, L503.6030, L3130.0010, L501.4700, L3400.0700, L3100.1850, L503.6550, L300.3900, L500.4100, L7000.7000, L3000.0375, L3890.6202, L803.2200, L501.6710, L506.0400, L3300.0100, L3100.5450, L3100.5000, L501.9520, L3100.3425, L800.1280, L3100.5020, L503.5510, L501.5101, L3200.1100, L500.4050, L506.1001 ####[facility] [address] [place], [place], [id number] IMMUNOGLOB A QN 392 mg/dL High 87-352 [facility] Comment on above: Order Comment: Test( s) 134213-Cfidgs, Serum or Plasmawas developed and its performance characteristicsdetermined by [facility]. It has not been cleared or approvedby the Food and Drug Administration.NElevated AFP Performed By: #### L 501.9985, L3300.0700, L3200.0500, L503.6030, L3130.0010, L501.4700, L3400.0700, L3100.1850, L503.6550, L300.3900, L500.4100, L7000.7000, L3000.0375, L3890.6202, L803.2200, L501.6710, L506.0400, L3300.0100, L3100.5450, L3100.5000, L501.9520, L3100.3425, L800.1280, L3100.5020, L503.5510, L501.5101, L3200.1100, L500.4050, L506.1001 ####[facility] [address] [place], [address] IMMUNOGLOB M QN 219 mg/dL [facility] 26-217 [facility] Comment on above: Order Comment: Test( s) 921561-Oidzpt, Serum or Plasmawas developed and its performance characteristicsdetermined by [facility]. It has not been cleared or approvedby the Food and Drug Administration.NElevated AFP Performed By: #### L 501.9985, L3300.0700, L3200.0500, L503.6030, L3130.0010, L501.4700, L3400.0700, L3100.1850, L503.6550, L300.3900, L500.4100, L7000.7000, L3000.0375, L3890.6202, L803.2200, L501.6710, L506.0400, L3300.0100, L3100.5450, L3100.5000, L501.9520, L3100.3425, L800.1280, L3100.5020, L503.5510, L501.5101, L3200.1100, L500.4050, L506.1001 ####[facility] [address] [place], [place], [id number] M-Bc Not Observed Normal Not Observed [facility] Comment on above: Order Comment: Test( s) 195930-Inllak, Serum or Plasmawas developed and its performance characteristicsdetermined by [facility]. It has not been cleared or approvedby the Food and Drug Administration.NElevated AFP Performed By: #### L 501.9985, L3300.0700, L3200.0500, L503.6030, L3130.0010, L501.4700, L3400.0700, L3100.1850, L503.6550, L300.3900, L500.4100, L7000.7000, L3000.0375, L3890.6202, L803.2200, L501.6710, L506.0400, L3300.0100, L3100.5450, L3100.5000, L501.9520, L3100.3425, L800.1280, L3100.5020, L503.5510, L501.5101, L3200.1100, L500.4050, L506.1001 ####[facility] [address] [place], [place], [address] NOTE: Comment Normal . [facility] Comment on above: Order Comment: Test( s) 919478-Gcemua, Serum or Plasmawas developed and its performance characteristicsdetermined by [facility]. 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 Performed By: #### L 501.9985, L3300.0700, L3200.0500, L503.6030, L3130.0010, L501.4700, L3400.0700, L3100.1850, L503.6550, L300.3900, L500.4100, L7000.7000, L3000.0375, L3890.6202, L803.2200, L501.6710, L506.0400, L3300.0100, L3100.5450, L3100.5000, L501.9520, L3100.3425, L800.1280, L3100.5020, L503.5510, L501.5101, L3200.1100, L500.4050, L506.1001 ####[facility] [address] [place], [place], [id number] Protein [Mass/Vol] 7.6 g/dL Normal 6.0-8.5 [facility] Comment on above: Order Comment: Test( s) 936132-Fhiwqc, Serum or Plasmawas developed and its performance characteristicsdetermined by [facility]. It has not been cleared or approvedby the Food and Drug Administration.NElevated AFP Performed By: #### L 501.9985, L3300.0700, L3200.0500, L503.6030, L3130.0010, L501.4700, L3400.0700, L3100.1850, L503.6550, L300.3900, L500.4100, L7000.7000, L3000.0375, L3890.6202, L803.2200, L501.6710, L506.0400, L3300.0100, L3100.5450, L3100.5000, L501.9520, L3100.3425, L800.1280, L3100.5020, L503.5510, L501.5101, L3200.1100, L500.4050, L506.1001 ####[facility] [address] [facility] [address] [place], [place], [address] IgG Subclasseson 03-12-2025 IgG, SUBCLASS 1 1658 mg/dL High 248-810 [facility] Comment on above: Order Comment: Test( s) 161768-Aplfub, Serum or Plasmawas developed and its performance characteristicsdetermined by [facility]. It has not been cleared or approvedby the Food and Drug Administration. Performed By: #### L 501.9985, L3300.0700, L3200.0500, L503.6030, L3130.0010, L501.4700, L3400.0700, L3100.1850, L503.6550, L300.3900, L500.4100, L7000.7000, L3000.0375, L3890.6202, L803.2200, L501.6710, L506.0400, L3300.0100, L3100.5450, L3100.5000, L501.9520, L3100.3425, L800.1280, L3100.5020, L503.5510, L501.5101, L3200.1100, L500.4050, L506.1001 ####[facility] [address] [facility] [place], [place], [id number](161) IgG, SUBCLASS 2 376 mg/dL Normal 130-555 [facility] Comment on above: Order Comment: Test( s) 064717-Dkcegi, Serum or Plasmawas developed and its performance characteristicsdetermined by [employer]. It has not been cleared or approvedby the Food and Drug Administration. Performed By: #### L 501.9985, L3300.0700, L3200.0500, L503.6030, L3130.0010, L501.4700, L3400.0700, L3100.1850, L503.6550, L300.3900, L500.4100, L7000.7000, L3000.0375, L3890.6202, L803.2200, L501.6710, L506.0400, L3300.0100, L3100.5450, L3100.5000, L501.9520, L3100.3425, L800.1280, L3100.5020, L503.5510, L501.5101, L3200.1100, L500.4050, L506.1001 ####[facility] [address] [place], [address] IgG, SUBCLASS 3 135 mg/dL High 15-102 [facility] Comment on above: Order Comment: Test( s) 650200-Iqfyld, Serum or Plasmawas developed and its performance characteristicsdetermined by [facility]. It has not been cleared or approvedby the Food and Drug Administration. Performed By: #### L 501.9985, L3300.0700, L3200.0500, L503.6030, L3130.0010, L501.4700, L3400.0700, L3100.1850, L503.6550, L300.3900, L500.4100, L7000.7000, L3000.0375, L3890.6202, L803.2200, L501.6710, L506.0400, L3300.0100, L3100.5450, L3100.5000, L501.9520, L3100.3425, L800.1280, L3100.5020, L503.5510, L501.5101, L3200.1100, L500.4050, L506.1001 ####[facility] [address] [place], [address] IgG, SUBCLASS 4 127 mg/dL High 2-96 [facility] Comment on above: Order Comment: Test( s) 883610-Lytekt, Serum or Plasmawas developed and its performance characteristicsdetermined by [employer]. It has not been cleared or approvedby the Food and Drug Administration. Performed By: #### L 501.9985, L3300.0700, L3200.0500, L503.6030, L3130.0010, L501.4700, L3400.0700, L3100.1850, L503.6550, L300.3900, L500.4100, L7000.7000, L3000.0375, L3890.6202, L803.2200, L501.6710, L506.0400, L3300.0100, L3100.5450, L3100.5000, L501.9520, L3100.3425, L800.1280, L3100.5020, L503.5510, L501.5101, L3200.1100, L500.4050, L506.1001 ####[facility] [address] [place], [place], [address] IGG,QUANT 2865 mg/dL High 586-1602 [facility] Comment on above: Order Comment: Test( s) 061945-[place]og, Serum or Plasmawas developed and its performance characteristicsdetermined by [employer]. It has not been cleared or approvedby the Food and Drug Administration. Performed By: #### L 501.9985, L3300.0700, L3200.0500, L503.6030, L3130.0010, L501.4700, L3400.0700, L3100.1850, L503.6550, L300.3900, L500.4100, L7000.7000, L3000.0375, L3890.6202, L803.2200, L501.6710, L506.0400, L3300.0100, L3100.5450, L3100.5000, L501.9520, L3100.3425, L800.1280, L3100.5020, L503.5510, L501.5101, L3200.1100, L500.4050, L506.1001 ####[facility] [address] [place], [place], [address] Immunoglobulins G/A/M/Devon IMMUNOGLOB E QN 21 IU/mL Normal 6-495 [facility] Comment on above: Order Comment: Test( s) 232490-Vhxdwl, Serum or Plasmawas developed and its performance characteristicsdetermined by [employer]. It has not been cleared or approvedby the Food and Drug Administration.NElevated AFP Performed By: #### L 501.9985, L3300.0700, L3200.0500, L503.6030, L3130.0010, L501.4700, L3400.0700, L3100.1850, L503.6550, L300.3900, L500.4100, L7000.7000, L3000.0375, L3890.6202, L803.2200, L501.6710, L506.0400, L3300.0100, L3100.5450, L3100.5000, L501.9520, L3100.3425, L800.1280, L3100.5020, L503.5510, L501.5101, L3200.1100, L500.4050, L506.1001 ####[facility] [address] [facility]. [place], [place], [address] [place]aver Lambda Light Chainson 03-12-2025 FR KAPPA LT CHN 55.8 mg/L Abnormal 3.3-19.4 [facility] Comment on above: Order Comment: Test( s) 638508-Fmsfzx, Serum or Plasmawas developed and its performance characteristicsdetermined by [employer]. It has not been cleared or approvedby the Food and Drug Administration. Performed By: #### L 501.9985, L3300.0700, L3200.0500, L503.6030, L3130.0010, L501.4700, L3400.0700, L3100.1850, L503.6550, L300.3900, L500.4100, L7000.7000, L3000.0375, L3890.6202, L803.2200, L501.6710, L506.0400, L3300.0100, L3100.5450, L3100.5000, L501.9520, L3100.3425, L800.1280, L3100.5020, L503.5510, L501.5101, L3200.1100, L500.4050, L506.1001 ####[facility] [address] [place], [place], [address] FR LAMBDA LT CH 39.9 mg/L Abnormal 5.7-26.3 [facility] Comment on above: Order Comment: Test( s) 391699-Gplpiq, Serum or Plasmawas developed and its performance characteristicsdetermined by [employer]. It has not been cleared or approvedby the Food and Drug Administration. Performed By: #### L 501.9985, L3300.0700, L3200.0500, L503.6030, L3130.0010, L501.4700, L3400.0700, L3100.1850, L503.6550, L300.3900, L500.4100, L7000.7000, L3000.0375, L3890.6202, L803.2200, L501.6710, L506.0400, L3300.0100, L3100.5450, L3100.5000, L501.9520, L3100.3425, L800.1280, L3100.5020, L503.5510, L501.5101, L3200.1100, L500.4050, L506.1001 ####[facility] [address] [facility] [place], [address] KAPPA/LAMBDA % 1.40 Normal 0.26-1.65 [facility] Comment on above: Order Comment: Test( s) 462362-Pamwqk, Serum or Plasmawas developed and its performance characteristicsdetermined by [employer]. It has not been cleared or approvedby the Food and Drug Administration. Performed By: #### L 501.9985, L3300.0700, L3200.0500, L503.6030, L3130.0010, L501.4700, L3400.0700, L3100.1850, L503.6550, L300.3900, L500.4100, L7000.7000, L3000.0375, L3890.6202, L803.2200, L501.6710, L506.0400, L3300.0100, L3100.5450, L3100.5000, L501.9520, L3100.3425, L800.1280, L3100.5020, L503.5510, L501.5101, L3200.1100, L500.4050, L506.1001 ####[facility] [address] [facility]. [place], [place], [address] L501.5101on 03-12-2025 GGTP 69 IU/L Abnormal 0-60 [facility] Comment on above: Order Comment: Test( s) 152061-Gcosdg, Serum or Plasmawas developed and its performance characteristicsdetermined by [employer]. It has not been cleared or approvedby the Food and Drug Administration. Performed By: #### L 501.9985, L3300.0700, L3200.0500, L503.6030, L3130.0010, L501.4700, L3400.0700, L3100.1850, L503.6550, L300.3900, L500.4100, L7000.7000, L3000.0375, L3890.6202, L803.2200, L501.6710, L506.0400, L3300.0100, L3100.5450, L3100.5000, L501.9520, L3100.3425, L800.1280, L3100.5020, L503.5510, L501.5101, L3200.1100, L500.4050, L506.1001 ####[facility] [address] [place], [address] Anti-Mitochondrial ABon 06-1 ANTIMITOCHON AB <20.0 Normal 0.0-20.0 [facility] Comment on above: Result Comment: Nega tive 0.0 - 20.0 Equivocal 20.1 - 24.9 Positive >24.9Mitochondrial (M2) Antibodies are found in 90-96% ofpatients with primary biliary cirrhosis. Performed By: #### L 501.9985, L3300.0700, L3200.0500, L503.6030, L3130.0010, L501.4700, L3400.0700, L3100.1850, L503.6550, L300.3900, L500.4100, L7000.7000, L3000.0375, L3890.6202, L803.2200, L501.6710, L506.0400, L3300.0100, L3100.5450, L3100.5000, L501.9520, L3100.3425, L800.1280, L3100.5020, L503.5510, L501.5101, L3200.1100, L500.4050, L506.1001 ####[facility] [address] [place], [address] L3410.9992on 03-08-2025 [facility]. COMMENT Normal . [facility] Comment on above: Order Comment: LAVEN JAZMYNE TUBE WHOLE BLOOD [id number] SCREEN 7 W/CONF WBLOOD Result Comment: Test Ordered: 660703 Drug Screen 7 w/Conf, WBETHYL ALCOHOL, ENZ Negative gm/dL MX Reference Range: Cutoff:0.020AMPHETAMINES, [place] Negative ng/mL MX Reference Range: Cutoff:50COCAINE/METABOLITE,[place] Negative ng/mL MX Reference Range: Cutoff:25PHENCYCLIDINE, [place] Negative ng/mL MX Reference Range: Cutoff:8THC (MARIJUANA) MTB,[place] Negative ng/mL MX Reference Range: Cutoff:5OPIATES, [place] Negative ng/mL MX Reference Range: Cutoff:5OX[place]CODONES, [place] Note: [A ] ng/mL MX ++POSITIVE++ Reference Range: Cutoff:5This test was developed and its performance characteristicsdetermined by [facility]. It has not been cleared or approvedby the Food and Drug Administration.Oxycodones Confirmation Positive MX Reference Range: .Oxycodone 28.7 ng/mL MX Reference Range: .Oxymorphone Negative ng/mL MX Reference Range: .Expected metabolism of oxycodone class drugs: Parent Drug Detected Metabolites Oxycodone: Oxymorphone Oxymorphone: NoneConfirmation threshold: 1.0 ng/mLPerformed at: [facility] [address] [place] [id number] Director: Anahi Rueda [facility], Phone: [phone] at: [facility] LabJennifer [id number] [place], [place] [id number] Director: Tee Reyna PhD, Phone: [phone] Performed By: #### L 3410.9992 ####[facility] [address] [place], [address] Abdomen Limitedon 03-07-2025 Abdomen Limited Normal [facility] Absolute lymphocyte countOrd ered By: Son Adams on 03-07-2025 Lymphocytes Auto (Unsp spec) [#/Vol] 1.30 10*3/uL 0.83-4.51 [facility] Absolute neutrophil countOrd ered By: Son Adams on 03-07-2025 Neutrophils (Bld) [#/Vol] 5.6 10*3/uL 2.0-7.7 [facility] Activated partial thrombopla stin time (aPTT) in platelet poor plasma by coagulation aOrdered By: Isidro Burnett on 03-07-2025 aPTT Coag (PPP) [Time] 39.2 s High 24.1-36.2 [facility] Albumin Elph [Mass/Vol]Order ed By: Son Adams on 03-07-2025 Albumin [Mass/Vol] 3.4 g/dL 2.9-4.4 [facility] Ammoniaon 03-07-2025 Ammonia (P) [Moles/Vol] 56.1 umol/L High 11-51 [facility] Comment on above: Performed By: #### L 501.9985, L3300.0700, L3200.0500, L503.6030, L3130.0010, L501.4700, L3400.0700, L3100.1850, L503.6550, L300.3900, L500.4100, L7000.7000, L3000.0375, L3890.6202, L803.2200, L501.6710, L506.0400, L3300.0100, L3100.5450, L3100.5000, L501.9520, L3100.3425, L800.1280, L3100.5020, L503.5510, L501.5101, L3200.1100, L500.4050, L506.1001 ####[facility] [address] [place], [address] Anion gap in Serum or Plasma Ordered By: Son Adams on 03-07-2025 Anion gap [Moles/Vol] 10 mmol/L 5-[address] [facility] Automated lymphocyte count a s percentage of total leukocytesOrdered By: Son Adams on 03-07-2025 Lymphocytes/100 WBC Auto (Unsp spec) 16.1 % Low 19-41 [facility] BUN/creatinine ratioOrdered By: Son Adams on 03-07-2025 Urea nitrogen/Creatinine [Mass ratio] 9.4 mg/mg Low 10-20 [facility] Basophil percentageOrdered B y: Son Adams on 03-07-2025 Basophils/100 WBC (Bld) 0.9 % 0-1 [facility] Bilirubin directOrdered By: Son Adams on 03-07-2025 Bilirubin.direct [Mass/Vol] 1.23 mg/dL High 0.00-0.30 [facility] Bilirubin, Directon 03-07-20 25 Bilirubin.direct [Mass/Vol] 1.23 mg/dL High 0.00-0.30 [facility] Comment on above: Performed By: #### L 501.9985, L3300.0700, L3200.0500, L503.6030, L3130.0010, L501.4700, L3400.0700, L3100.1850, L503.6550, L300.3900, L500.4100, L7000.7000, L3000.0375, L3890.6202, L803.2200, L501.6710, L506.0400, L3300.0100, L3100.5450, L3100.5000, L501.9520, L3100.3425, L800.1280, L3100.5020, L503.5510, L501.5101, L3200.1100, L500.4050, L506.1001 ####[facility] [address] [place], [address] Bilirubin, totalOrdered By: Son Adams on 03-07-2025 Bilirubin [Mass/Vol] 2.31 mg/dL High 0.00-1.30 [facility] CA 19-9 agOrdered By: Flo Adams on 03-07-2025 CA 19-9 ag 36 U/mL High 0-35 [facility] Comment on above: [employer] El ectrochemiluminescence Immunoassay(ECLIA)Values obtained with different assay methods or kits cannotbe used interchangeably. Results cannot be interpreted asabsolute evidence of the presence or absence of malignantdisease. CBC W/Diff, Automatedon 02-24 Absolute Lymph 1.30 X10 3/uL Normal 0.83-4.51 [facility] Comment on above: Performed By: #### L 300.4310, L100.0100 ####[facility] [address] [place], [address] Absolute Neut 5.6 X10 3/uL Normal 2.0-7.7 [facility] Comment on above: Performed By: #### L 300.4310, L100.0100 ####[facility] [address] [place], [address] Basophils/100 WBC (Bld) 0.9 % Normal 0-1 [facility] Comment on above: Performed By: #### L 300.4310, L100.0100 ####[facility] [address] [place], [address] Eosinophils/100 WBC (Bld) 3.5 % Normal 0-5 [facility] Comment on above: Performed By: #### L 300.4310, L100.0100 ####[facility] [address] [place], [address] Erythrocyte distribution width (RBC) [Ratio] 16.4 % High 11.6-14.6 [facility] Comment on above: Performed By: #### L 300.4310, L100.0100 ####[facility] [address] [place], [address] Hematocrit (Bld) [Volume fraction] 38.8 % Normal 37-47 [facility] Comment on above: Performed By: #### L 300.4310, L100.0100 ####[facility] [address] [place], [address] Hemoglobin (Bld) [Mass/Vol] 13.1 g/dL Normal 12.0-15.0 [facility] Comment on above: Performed By: #### L 300.4310, L100.0100 ####[facility] [address] [place], [address] IG% 0.500 Normal 0.0-0.9 [facility] Comment on above: Result Comment: IG% - Immature Granulocytes (promyelocytes, myelocytes andmetamyelocytes) > 1% indicates that a LEFT SHIFT is Present. Performed By: #### L 300.4310, L100.0100 ####[facility] [address] [place], [address] Lymphocytes/100 WBC (Bld) 16.1 % Low 19-41 [facility] Comment on above: Performed By: #### L 300.4310, L100.0100 ####[facility] [address] [place], [address] MCH (RBC) [Entitic mass] 31.5 pg Normal 27.0-32.0 [facility] Comment on above: Performed By: #### L 300.4310, L100.0100 ####[facility] [address] [place], [address] MCHC (RBC) [Mass/Vol] 33.8 g/dL Normal 32-[address] [facility] Comment on above: Performed By: #### L 300.4310, L100.0100 ####[facility] [address] [place], [address] MCV (RBC) [Entitic vol] 93.3 fL Normal 81-99 [facility] Comment on above: Performed By: #### L 300.4310, L100.0100 ####[facility] [address] [place], [address] Monocytes/100 WBC (Bld) 9.1 % Normal 0-10 [facility] Comment on above: Performed By: #### L 300.4310, L100.0100 ####[facility] [address] [place], [address] Neutrophils/100 WBC (Bld) 69.9 % Normal 47-70 [facility] Comment on above: Performed By: #### L 300.4310, L100.0100 ####[facility] [address] [place], [address] Nucleated RBC (Bld) [#/Vol] 0.2 10*3/uL Normal 0-5 [facility] Comment on above: Performed By: #### L 300.4310, L100.0100 ####[facility] [address] [place], [address] Platelet mean volume (Bld) [Entitic vol] 11.5 fL Normal 6.2-12.0 [facility] Comment on above: Performed By: #### L 300.4310, L100.0100 ####[facility] [address] [place], [address] Platelets (Bld) [#/Vol] 62 10*3/uL Low 150-450 [facility] Comment on above: Performed By: #### L 300.4310, L100.0100 ####[facility] [address] [place], [address] RBC (Bld) [#/Vol] 4.16 10*6/uL Low 4.2-5.4 [facility] Comment on above: Performed By: #### L 300.4310, L100.0100 ####[facility] [address] [place], [address] RDW SD 55.8 fl High 35.1-43.9 [facility] Comment on above: Performed By: #### L 300.4310, L100.0100 ####[facility] [address] [place], [place], [address] WBC (Bld) [#/Vol] 8.1 10*3/uL Normal 4.4-11.0 [facility] Comment on above: Performed By: #### L 300.4310, L100.0100 ####[facility] [address] [place], [address] CRPon 03-07-2025 C-REACTIVE PROT 5.20 mg/L High 0.0-3.0 [facility] Comment on above: Performed By: #### L 501.9985, L3300.0700, L3200.0500, L503.6030, L3130.0010, L501.4700, L3400.0700, L3100.1850, L503.6550, L300.3900, L500.4100, L7000.7000, L3000.0375, L3890.6202, L803.2200, L501.6710, L506.0400, L3300.0100, L3100.5450, L3100.5000, L501.9520, L3100.3425, L800.1280, L3100.5020, L503.5510, L501.5101, L3200.1100, L500.4050, L506.1001 ####[facility] [address] [place], [place], [address] Calculated very low density lipoprotein (VLDL) cholesterol measurementOrdered By: Son Adams on 03-07-2025 Calculated very low density lipoprotein (VLDL) cholesterol measurement 13 mg/dL 5-40 [facility] Cancer antigen 125 (CA-125) measurementOrdered By: Son Adams on 03-07-2025 Cancer antigen 125 (CA-125) measurement 25.7 U/mL 0.0-38.1 [facility] Comment on above: [employer] El ectrochemiluminescence Immunoassay(ECLIA)Values obtained with different assay methods or kits cannotbe used interchangeably. Results cannot be interpreted asabsolute evidence of the presence or absence of malignantdisease. Carbon dioxide, total [Moles /volume] in Central venous bloodOrdered By: Son Adams on 03-07-2025 CO2 [Moles/Vol] 22.7 mmol/L 21.0-32.0 [facility] Chloride assayOrdered By: Darshana Adams on 03-07-2025 Chloride [Moles/Vol] 103 mmol/L 98-108 [facility] Comprehensive Metabolic Prof ilon 03-07-2025 Albumin [Mass/Vol] 3.5 g/dL Normal 3.5-5.0 [facility] Comment on above: Order Comment: Hudson mary AFP Performed By: #### L 501.9985, L3300.0700, L3200.0500, L503.6030, L3130.0010, L501.4700, L3400.0700, L3100.1850, L503.6550, L300.3900, L500.4100, L7000.7000, L3000.0375, L3890.6202, L803.2200, L501.6710, L506.0400, L3300.0100, L3100.5450, L3100.5000, L501.9520, L3100.3425, L800.1280, L3100.5020, L503.5510, L501.5101, L3200.1100, L500.4050, L506.1001 ####[facility] [address] [place], [place], [address] Albumin/Globulin [Mass ratio] 0.8 {ratio} Low 0.9-2.4 [facility] Comment on above: Order Comment: Hudson mary AFP Performed By: #### L 501.9985, L3300.0700, L3200.0500, L503.6030, L3130.0010, L501.4700, L3400.0700, L3100.1850, L503.6550, L300.3900, L500.4100, L7000.7000, L3000.0375, L3890.6202, L803.2200, L501.6710, L506.0400, L3300.0100, L3100.5450, L3100.5000, L501.9520, L3100.3425, L800.1280, L3100.5020, L503.5510, L501.5101, L3200.1100, L500.4050, L506.1001 ####[facility] [address] [place], [place], [address] ALK PHOS 198 U/L High 35-104 [facility] Comment on above: Order Comment: Hudson mary AFP Performed By: #### L 501.9985, L3300.0700, L3200.0500, L503.6030, L3130.0010, L501.4700, L3400.0700, L3100.1850, L503.6550, L300.3900, L500.4100, L7000.7000, L3000.0375, L3890.6202, L803.2200, L501.6710, L506.0400, L3300.0100, L3100.5450, L3100.5000, L501.9520, L3100.3425, L800.1280, L3100.5020, L503.5510, L501.5101, L3200.1100, L500.4050, L506.1001 ####[facility] [address] [place], [place], [address] ALT [Catalytic activity/Vol] 38 U/L High <=34 [facility] Comment on above: Order Comment: Hudson mary AFP Performed By: #### L 501.9985, L3300.0700, L3200.0500, L503.6030, L3130.0010, L501.4700, L3400.0700, L3100.1850, L503.6550, L300.3900, L500.4100, L7000.7000, L3000.0375, L3890.6202, L803.2200, L501.6710, L506.0400, L3300.0100, L3100.5450, L3100.5000, L501.9520, L3100.3425, L800.1280, L3100.5020, L503.5510, L501.5101, L3200.1100, L500.4050, L506.1001 ####[facility] [address] [facility] [place], [place], [address] AST [Catalytic activity/Vol] 73 U/L High <=31 [facility] Comment on above: Order Comment: Hudson mary AFP Performed By: #### L 501.9985, L3300.0700, L3200.0500, L503.6030, L3130.0010, L501.4700, L3400.0700, L3100.1850, L503.6550, L300.3900, L500.4100, L7000.7000, L3000.0375, L3890.6202, L803.2200, L501.6710, L506.0400, L3300.0100, L3100.5450, L3100.5000, L501.9520, L3100.3425, L800.1280, L3100.5020, L503.5510, L501.5101, L3200.1100, L500.4050, L506.1001 ####[facility] [address] [facility] [place], [place], [address] Bilirubin [Mass/Vol] 2.31 mg/dL High 0.00-1.30 [facility] Comment on above: Order Comment: Hudson mary AFP Performed By: #### L 501.9985, L3300.0700, L3200.0500, L503.6030, L3130.0010, L501.4700, L3400.0700, L3100.1850, L503.6550, L300.3900, L500.4100, L7000.7000, L3000.0375, L3890.6202, L803.2200, L501.6710, L506.0400, L3300.0100, L3100.5450, L3100.5000, L501.9520, L3100.3425, L800.1280, L3100.5020, L503.5510, L501.5101, L3200.1100, L500.4050, L506.1001 ####[facility] [address] [place], [address] BUN/CRE 9.4 RATIO Low 10-20 [facility] Comment on above: Order Comment: Hudson mary AFP Performed By: #### L 501.9985, L3300.0700, L3200.0500, L503.6030, L3130.0010, L501.4700, L3400.0700, L3100.1850, L503.6550, L300.3900, L500.4100, L7000.7000, L3000.0375, L3890.6202, L803.2200, L501.6710, L506.0400, L3300.0100, L3100.5450, L3100.5000, L501.9520, L3100.3425, L800.1280, L3100.5020, L503.5510, L501.5101, L3200.1100, L500.4050, L506.1001 ####[facility] [address] [place], [place], [address] Calcium [Mass/Vol] 9.1 mg/dL Normal 7.6-11.0 [facility] Comment on above: Order Comment: Hudson mary AFP Performed By: #### L 501.9985, L3300.0700, L3200.0500, L503.6030, L3130.0010, L501.4700, L3400.0700, L3100.1850, L503.6550, L300.3900, L500.4100, L7000.7000, L3000.0375, L3890.6202, L803.2200, L501.6710, L506.0400, L3300.0100, L3100.5450, L3100.5000, L501.9520, L3100.3425, L800.1280, L3100.5020, L503.5510, L501.5101, L3200.1100, L500.4050, L506.1001 ####[facility] [address] [facility] [place], [place], [address] Chloride [Moles/Vol] 103 mmol/L Normal 98-108 [facility] Comment on above: Order Comment: Hudson mary AFP Performed By: #### L 501.9985, L3300.0700, L3200.0500, L503.6030, L3130.0010, L501.4700, L3400.0700, L3100.1850, L503.6550, L300.3900, L500.4100, L7000.7000, L3000.0375, L3890.6202, L803.2200, L501.6710, L506.0400, L3300.0100, L3100.5450, L3100.5000, L501.9520, L3100.3425, L800.1280, L3100.5020, L503.5510, L501.5101, L3200.1100, L500.4050, L506.1001 ####[facility] [address] [facility] [place], [place], [address] CO2 [Moles/Vol] 22.7 mmol/L Normal 21.0-32.0 [facility] Comment on above: Order Comment: Hudson mary AFP Performed By: #### L 501.9985, L3300.0700, L3200.0500, L503.6030, L3130.0010, L501.4700, L3400.0700, L3100.1850, L503.6550, L300.3900, L500.4100, L7000.7000, L3000.0375, L3890.6202, L803.2200, L501.6710, L506.0400, L3300.0100, L3100.5450, L3100.5000, L501.9520, L3100.3425, L800.1280, L3100.5020, L503.5510, L501.5101, L3200.1100, L500.4050, L506.1001 ####[facility] [address] [facility] [place], [place], [id number] Creatinine [Mass/Vol] 1.04 mg/dL Normal 0.70-1.[address] [facility] Comment on above: Order Comment: Hudson mary AFP Performed By: #### L 501.9985, L3300.0700, L3200.0500, L503.6030, L3130.0010, L501.4700, L3400.0700, L3100.1850, L503.6550, L300.3900, L500.4100, L7000.7000, L3000.0375, L3890.6202, L803.2200, L501.6710, L506.0400, L3300.0100, L3100.5450, L3100.5000, L501.9520, L3100.3425, L800.1280, L3100.5020, L503.5510, L501.5101, L3200.1100, L500.4050, L506.1001 ####[facility] [address] [facility]. [place], [place], [id number] GAP 10 Normal 5-15 [facility] Comment on above: Order Comment: Hudson mary AFP Performed By: #### L 501.9985, L3300.0700, L3200.0500, L503.6030, L3130.0010, L501.4700, L3400.0700, L3100.1850, L503.6550, L300.3900, L500.4100, L7000.7000, L3000.0375, L3890.6202, L803.2200, L501.6710, L506.0400, L3300.0100, L3100.5450, L3100.5000, L501.9520, L3100.3425, L800.1280, L3100.5020, L503.5510, L501.5101, L3200.1100, L500.4050, L506.1001 ####[facility] [address] [place], [address] GFR/1.73 sq M.predicted among non-blacks MDRD (S/P/Bld) [Vol rate/Area] 65 mL/min/{1.73_m2} Normal >60 [facility] Comment on above: Order Comment: Hudson mary AFP Result Comment: mL/m in/1.73m2 CKD-EPI Creatinine Equation (2020) Performed By: #### L 501.9985, L3300.0700, L3200.0500, L503.6030, L3130.0010, L501.4700, L3400.0700, L3100.1850, L503.6550, L300.3900, L500.4100, L7000.7000, L3000.0375, L3890.6202, L803.2200, L501.6710, L506.0400, L3300.0100, L3100.5450, L3100.5000, L501.9520, L3100.3425, L800.1280, L3100.5020, L503.5510, L501.5101, L3200.1100, L500.4050, L506.1001 ####[facility] [address] [place], [place], [id number] Globulin (S) [Mass/Vol] 4.4 g/dL High 2.2-4.2 [facility] Comment on above: Order Comment: Hudson mary AFP Performed By: #### L 501.9985, L3300.0700, L3200.0500, L503.6030, L3130.0010, L501.4700, L3400.0700, L3100.1850, L503.6550, L300.3900, L500.4100, L7000.7000, L3000.0375, L3890.6202, L803.2200, L501.6710, L506.0400, L3300.0100, L3100.5450, L3100.5000, L501.9520, L3100.3425, L800.1280, L3100.5020, L503.5510, L501.5101, L3200.1100, L500.4050, L506.1001 ####[facility] [address] [facility]. [place], [place], [id number] Glucose [Mass/Vol] 107 mg/dL High 70-99 [facility] Comment on above: Order Comment: Hudson mary AFP Performed By: #### L 501.9985, L3300.0700, L3200.0500, L503.6030, L3130.0010, L501.4700, L3400.0700, L3100.1850, L503.6550, L300.3900, L500.4100, L7000.7000, L3000.0375, L3890.6202, L803.2200, L501.6710, L506.0400, L3300.0100, L3100.5450, L3100.5000, L501.9520, L3100.3425, L800.1280, L3100.5020, L503.5510, L501.5101, L3200.1100, L500.4050, L506.1001 ####[facility] [address] [facility]. [place], [place], [id number] Potassium [Moles/Vol] 3.7 mmol/L Normal 3.3-5.[address] [facility] Comment on above: Order Comment: Hudson mary AFP Performed By: #### L 501.9985, L3300.0700, L3200.0500, L503.6030, L3130.0010, L501.4700, L3400.0700, L3100.1850, L503.6550, L300.3900, L500.4100, L7000.7000, L3000.0375, L3890.6202, L803.2200, L501.6710, L506.0400, L3300.0100, L3100.5450, L3100.5000, L501.9520, L3100.3425, L800.1280, L3100.5020, L503.5510, L501.5101, L3200.1100, L500.4050, L506.1001 ####[facility] [address] [facility]. [place], [place], [id number] Sodium [Moles/Vol] 136 mmol/L Normal 133-145 [facility] Comment on above: Order Comment: Hudson mary AFP Performed By: #### L 501.9985, L3300.0700, L3200.0500, L503.6030, L3130.0010, L501.4700, L3400.0700, L3100.1850, L503.6550, L300.3900, L500.4100, L7000.7000, L3000.0375, L3890.6202, L803.2200, L501.6710, L506.0400, L3300.0100, L3100.5450, L3100.5000, L501.9520, L3100.3425, L800.1280, L3100.5020, L503.5510, L501.5101, L3200.1100, L500.4050, L506.1001 ####[facility] [address] [facility]. [place], [place], [id number] T PROT 7.9 g/dL Normal 5.9-8.4 [facility] Comment on above: Order Comment: Hudson mary AFP Performed By: #### L 501.9985, L3300.0700, L3200.0500, L503.6030, L3130.0010, L501.4700, L3400.0700, L3100.1850, L503.6550, L300.3900, L500.4100, L7000.7000, L3000.0375, L3890.6202, L803.2200, L501.6710, L506.0400, L3300.0100, L3100.5450, L3100.5000, L501.9520, L3100.3425, L800.1280, L3100.5020, L503.5510, L501.5101, L3200.1100, L500.4050, L506.1001 ####[facility] [address] [place], [place], [id number] Urea nitrogen [Mass/Vol] 10 mg/dL Normal 4-19 [facility] Comment on above: Order Comment: Hudson mary AFP Performed By: #### L 501.9985, L3300.0700, L3200.0500, L503.6030, L3130.0010, L501.4700, L3400.0700, L3100.1850, L503.6550, L300.3900, L500.4100, L7000.7000, L3000.0375, L3890.6202, L803.2200, L501.6710, L506.0400, L3300.0100, L3100.5450, L3100.5000, L501.9520, L3100.3425, L800.1280, L3100.5020, L503.5510, L501.5101, L3200.1100, L500.4050, L506.1001 ####[facility] [address] [facility]. [place], [place], [id number] Eosinophil percentageOrdered By: Son Adams on 03-07-2025 Eosinophils/100 WBC (Bld) 3.5 % 0-5 [facility] Erythrocyte distribution wid th ratioOrdered By: Son Adams on 03-07-2025 Erythrocyte distribution width (RBC) [Ratio] 16.4 % High 11.6-14.6 [facility] Erythrocyte distribution wid th standard deviationOrdered By: Son Adams on 03-07-2025 Erythrocyte distribution width (RBC) [Ratio] 55.8 fl High 35.1-43.9 [facility] Ferritinon 03-07-2025 Ferritin [Mass/Vol] 48 ng/mL Normal 22-378 [facility] Comment on above: Performed By: #### L 501.9985, L3300.0700, L3200.0500, L503.6030, L3130.0010, L501.4700, L3400.0700, L3100.1850, L503.6550, L300.3900, L500.4100, L7000.7000, L3000.0375, L3890.6202, L803.2200, L501.6710, L506.0400, L3300.0100, L3100.5450, L3100.5000, L501.9520, L3100.3425, L800.1280, L3100.5020, L503.5510, L501.5101, L3200.1100, L500.4050, L506.1001 ####[facility] [address] [place], [address] Gamma glutamyl transferase ( GGT) measurementOrdered By: Son Adams on 03-07-2025 Amylase [Catalytic activity/Vol] 69 U/L High 0-60 [facility] Glomerular filtration rate ( GFR) estimation/1.73 sq m using serum, plasma, or whole bOrdered By: Son Aadms on 03-07-2025 GFR/1.73 sq M.predicted among non-blacks MDRD (S/P/Bld) [Vol rate/Area] 65 mL/min/{1.73_m2} >60 [facility] Comment on above: mL/min/1.73m2 CKD-EP I Creatinine Equation (2020) Hematocrit Auto (Bld) [Volum e fraction]Ordered By: Son Adams on 03-07-2025 Hematocrit (Bld) [Volume fraction] 38.8 % 37-47 [facility] Hemoglobin A1con 03-07-2025 HbA1c (Bld) [Mass fraction] 4.5 % Normal <=5.6 [facility] Comment on above: Result Comment: Norm al < 5.7 % Prediabetic 5.7 - 6.4 % Diabetic >or= 6.5 % Please note range changes. Performed By: #### L 501.9985, L3300.0700, L3200.0500, L503.6030, L3130.0010, L501.4700, L3400.0700, L3100.1850, L503.6550, L300.3900, L500.4100, L7000.7000, L3000.0375, L3890.6202, L803.2200, L501.6710, L506.0400, L3300.0100, L3100.5450, L3100.5000, L501.9520, L3100.3425, L800.1280, L3100.5020, L503.5510, L501.5101, L3200.1100, L500.4050, L506.1001 ####[facility] [address] [place], [place], [address] Hemoglobin A1c percentageOrd ered By: Son Adams on 03-07-2025 HbA1c (Bld) [Mass fraction] 4.5 % <5.7 [facility] Comment on above: Normal < 5.7 % Predi abetic 5.7 - 6.4 % Diabetic >or= 6.5 % Please note range changes. Hemoglobin measurementOrdere d By: Son Adams on 03-07-2025 Hemoglobin (Bld) [Mass/Vol] 13.1 g/dL 12.0-15.0 [facility] Hepatitis B Surface Antibody on 03-07-2025 HEP B Surf Ab Non-Reactive Normal [facility] Comment on above: Result Comment: <8.5 mIU/mL: Non-Reactive8.5<= x <11.5 mIU/mL: Indeterminate>=11.5 mIU/mL: Reactive Non Reactive: Inconsistent with immunity less than <10 mIU/mL Reactive: Consistent with immunity greater than or equal to 10 mIU/mL Performed By: #### L 501.9985, L3300.0700, L3200.0500, L503.6030, L3130.0010, L501.4700, L3400.0700, L3100.1850, L503.6550, L300.3900, L500.4100, L7000.7000, L3000.0375, L3890.6202, L803.2200, L501.6710, L506.0400, L3300.0100, L3100.5450, L3100.5000, L501.9520, L3100.3425, L800.1280, L3100.5020, L503.5510, L501.5101, L3200.1100, L500.4050, L506.1001 ####[facility] [address] [place], [address] IgEOrdered By: Son Adams on 03-07-2025 IgE 21 IU/mL 6-495 [facility] Immature granulocytes/100 WB C Auto (Bld)Ordered By: Son Adams on 03-07-2025 Immature granulocytes/100 WBC (Bld) 0.500 % 0.0-0.9 [facility] Comment on above: IG% - Immature Granu locytes (promyelocytes, myelocytes and metamyelocytes) > 1% indicates that a LEFT SHIFT is Present. International normalized rat io (INR) calculationOrdered By: Son Adams on 03-07-2025 INR Coag (Bld) [Relative time] 1.5 {INR} [facility] Interpretation of serum or p lasma protein pattern by immunofixation (narrative resultOrdered By: Son Adams on 03-07-2025 Protein Fractions Immunofixation Eliezer [Interp] Not Observed g/dL Not Observed [facility] Iron measurement (mass/mass) Ordered By: Son Adams on 03-07-2025 Iron (Unsp spec) [Mass/Mass] 94 ug/dL 50-170 [facility] Iron+Iron Binding Capacityon 03-07-2025 Iron [Mass/Vol] 94 ug/dL Normal 50-170 [facility] Comment on above: Order Comment: Hudson mary AFP Performed By: #### L 501.9985, L3300.0700, L3200.0500, L503.6030, L3130.0010, L501.4700, L3400.0700, L3100.1850, L503.6550, L300.3900, L500.4100, L7000.7000, L3000.0375, L3890.6202, L803.2200, L501.6710, L506.0400, L3300.0100, L3100.5450, L3100.5000, L501.9520, L3100.3425, L800.1280, L3100.5020, L503.5510, L501.5101, L3200.1100, L500.4050, L506.1001 ####[facility] [address] [place], [place], [id number] IRON SATURATION 30.0 Normal 13-59 [facility] Comment on above: Order Comment: Hudson mary AFP Performed By: #### L 501.9985, L3300.0700, L3200.0500, L503.6030, L3130.0010, L501.4700, L3400.0700, L3100.1850, L503.6550, L300.3900, L500.4100, L7000.7000, L3000.0375, L3890.6202, L803.2200, L501.6710, L506.0400, L3300.0100, L3100.5450, L3100.5000, L501.9520, L3100.3425, L800.1280, L3100.5020, L503.5510, L501.5101, L3200.1100, L500.4050, L506.1001 ####[facility] [address] [place], [place], [id number] TIBC 314 ug/dL Normal 250-450 [facility] Comment on above: Order Comment: Hudson mary AFP Performed By: #### L 501.9985, L3300.0700, L3200.0500, L503.6030, L3130.0010, L501.4700, L3400.0700, L3100.1850, L503.6550, L300.3900, L500.4100, L7000.7000, L3000.0375, L3890.6202, L803.2200, L501.6710, L506.0400, L3300.0100, L3100.5450, L3100.5000, L501.9520, L3100.3425, L800.1280, L3100.5020, L503.5510, L501.5101, L3200.1100, L500.4050, L506.1001 ####[facility] [address] [place], [address] UIBC 220 ug/dL Low 228-428 [facility] Comment on above: Order Comment: Hudson mary AFP Performed By: #### L 501.9985, L3300.0700, L3200.0500, L503.6030, L3130.0010, L501.4700, L3400.0700, L3100.1850, L503.6550, L300.3900, L500.4100, L7000.7000, L3000.0375, L3890.6202, L803.2200, L501.6710, L506.0400, L3300.0100, L3100.5450, L3100.5000, L501.9520, L3100.3425, L800.1280, L3100.5020, L503.5510, L501.5101, L3200.1100, L500.4050, L506.1001 ####[facility] [address] [place], [place], [id number] LDL calc ser/plasOrdered By: Son Adams on 03-07-2025 Cholesterol in LDL [Mass/Vol] 43 mg/dL [facility] Comment on above: Yvkocrubet=743-345 m g/dL & Higher Dqxy=100 mg/dL or greater Laboratory - Chemistry and C hemistry - challengeOrdered By: Son Adams on 03-07-2025 AST [Catalytic activity/Vol] 73 U/L High <32 [facility] Lipid Profileon 03-07-2025 CHOL:HDL 1.93 Normal [facility] Comment on above: Performed By: #### L 501.9985, L3300.0700, L3200.0500, L503.6030, L3130.0010, L501.4700, L3400.0700, L3100.1850, L503.6550, L300.3900, L500.4100, L7000.7000, L3000.0375, L3890.6202, L803.2200, L501.6710, L506.0400, L3300.0100, L3100.5450, L3100.5000, L501.9520, L3100.3425, L800.1280, L3100.5020, L503.5510, L501.5101, L3200.1100, L500.4050, L506.1001 ####[facility] [address] [place], [address] Cholesterol [Mass/Vol] 116 mg/dL Normal <=200 [facility] Comment on above: Result Comment: Chol esterol level, Desirable <200 mg/dLBorderline high cholesterol 200-239 mg/dLHigh cholesterol >=240 mg/dLRecommendations of the NCEP Adult Treatment Panel for thefollowing risk-cutoff thresholds for the [place] Americanvalley hospitalulation. Performed By: #### L 501.9985, L3300.0700, L3200.0500, L503.6030, L3130.0010, L501.4700, L3400.0700, L3100.1850, L503.6550, L300.3900, L500.4100, L7000.7000, L3000.0375, L3890.6202, L803.2200, L501.6710, L506.0400, L3300.0100, L3100.5450, L3100.5000, L501.9520, L3100.3425, L800.1280, L3100.5020, L503.5510, L501.5101, L3200.1100, L500.4050, L506.1001 ####[facility] [address] [place], [address] Cholesterol in HDL [Mass/Vol] 60 mg/dL Normal [facility] Comment on above: Result Comment: Evelyn onal Cholesterol Education Program (NCEP) guidelines:<40 mg/dL: Low HDL-cholesterol (major risk factor for CHD)>= 60 mg/dL: High HDL-cholesterol (negative risk factor forCHD)HDL-cholesterol is affected by a number of factors, e.g.smoking, exercise, hormones, sex and age. Performed By: #### L 501.9985, L3300.0700, L3200.0500, L503.6030, L3130.0010, L501.4700, L3400.0700, L3100.1850, L503.6550, L300.3900, L500.4100, L7000.7000, L3000.0375, L3890.6202, L803.2200, L501.6710, L506.0400, L3300.0100, L3100.5450, L3100.5000, L501.9520, L3100.3425, L800.1280, L3100.5020, L503.5510, L501.5101, L3200.1100, L500.4050, L506.1001 ####[facility] [address] [facility]. [place], [place], [address] Cholesterol in LDL [Mass/Vol] 43 mg/dL Normal [facility] Comment on above: Result Comment: Bord dgcron=218-360 mg/dL Higher Seva=195 mg/dL or greater Performed By: #### L 501.9985, L3300.0700, L3200.0500, L503.6030, L3130.0010, L501.4700, L3400.0700, L3100.1850, L503.6550, L300.3900, L500.4100, L7000.7000, L3000.0375, L3890.6202, L803.2200, L501.6710, L506.0400, L3300.0100, L3100.5450, L3100.5000, L501.9520, L3100.3425, L800.1280, L3100.5020, L503.5510, L501.5101, L3200.1100, L500.4050, L506.1001 ####[facility] [address] [facility]. [place], [place], [id number] Cholesterol in VLDL [Mass/Vol] 13 mg/dL Normal 5-40 [facility] Comment on above: Performed By: #### L 501.9985, L3300.0700, L3200.0500, L503.6030, L3130.0010, L501.4700, L3400.0700, L3100.1850, L503.6550, L300.3900, L500.4100, L7000.7000, L3000.0375, L3890.6202, L803.2200, L501.6710, L506.0400, L3300.0100, L3100.5450, L3100.5000, L501.9520, L3100.3425, L800.1280, L3100.5020, L503.5510, L501.5101, L3200.1100, L500.4050, L506.1001 ####[facility] [address] [facility]. [place], [place], [address] Triglyceride [Mass/Vol] 63 mg/dL Normal [facility] Comment on above: Result Comment: The drugs N-Acetylcysteine and Metamizole may falselydepress this assay.Normal range: <150 mg/dLBorderline High: 150-199 mg/dLHigh: 200-499 mg/dLVery High: >500 mg/dL Performed By: #### L 501.9985, L3300.0700, L3200.0500, L503.6030, L3130.0010, L501.4700, L3400.0700, L3100.1850, L503.6550, L300.3900, L500.4100, L7000.7000, L3000.0375, L3890.6202, L803.2200, L501.6710, L506.0400, L3300.0100, L3100.5450, L3100.5000, L501.9520, L3100.3425, L800.1280, L3100.5020, L503.5510, L501.5101, L3200.1100, L500.4050, L506.1001 ####[facility] [address] [place], [address] MCV (mean corpuscular volume ) determinationOrdered By: Son Adams on 03-07-2025 MCV (RBC) [Entitic vol] 93.3 fL 81-99 [facility] Mean corpuscular hemoglobin (MCH) determinationOrdered By: Son Adams on 03-07-2025 MCH (RBC) [Entitic mass] 31.5 pg 27.0-32.0 [facility] Mean corpuscular hemoglobin concentration (MCHC) determinationOrdered By: Son Adams on 03-07-2025 MCHC (RBC) [Mass/Vol] 33.8 g/dL 32-[address] [facility] Mean platelet volume determi nationOrdered By: Son Adams on 03-07-2025 Platelet mean volume (Bld) [Entitic vol] 11.5 fL 6.2-12.0 [facility] Monocyte percentageOrdered B y: Son Adams on 03-07-2025 Monocytes/100 WBC (Bld) 9.1 % 0-10 [facility] Neutrophil percentageOrdered By: [facility] Bryan on 03-07-2025 Neutrophils/100 WBC (Bld) 69.9 % 47-70 [facility] No Panel InformationOrdered By: Son Adams on 03-07-2025 Addendum Document Comment . [facility] Comment on above: Protein electrophore sis scan will follow via computer,mail, or hay rake operator delivery. *Additional results available. Contact laboratory/see report*The quantitative range of this assay is 15 IU/mL to 100million IU/mL. HCV log10 Confirmation 3.597 . [facility] Comment on above: Result Units: log10 IU/mL Hepatitis C Virus Note Comment . [facility] Comment on above: Positive HCV antibod y screen with the presence of HCV RNAis consistent with active infection. Unsaturated Iron Binding Capacity 220 ug/dL Low 228-428 [facility] 73 U/L High <32 [facility] 220 ug/dL Low 228-428 [facility] 3.597 . [facility] Comment . [facility] Nucleated red blood cell per centageOrdered By: Son Adams on 03-07-2025 Nucleated RBC/100 WBC (Bld) [Ratio] 0.2 % 0-5 [facility] Partial Thromboplast Timeon 03-07-2025 aPTT Coag (Bld) [Time] 39.2 s High 24.1-36.2 [facility] Comment on above: Performed By: #### L 300.4310, L100.0100 ####[facility] [address] [place], [place], [id number] Platelet countOrdered By: Darshana Adams on 03-07-2025 Platelets (Bld) [#/Vol] 62 10*3/uL Low 150-450 [facility] Potassium measurement (mass/ volume)Ordered By: Son Adams on 03-07-2025 Potassium (Unsp spec) [Mass/Vol] 3.7 mmol/L 3.3-5.1 [facility] Prothrombin Time w/INRon INR Coag (PPP) [Relative time] 1.5 {INR} Normal [facility] Comment on above: Performed By: #### L 501.9985, L3300.0700, L3200.0500, L503.6030, L3130.0010, L501.4700, L3400.0700, L3100.1850, L503.6550, L300.3900, L500.4100, L7000.7000, L3000.0375, L3890.6202, L803.2200, L501.6710, L506.0400, L3300.0100, L3100.5450, L3100.5000, L501.9520, L3100.3425, L800.1280, L3100.5020, L503.5510, L501.5101, L3200.1100, L500.4050, L506.1001 ####[facility] [address] [place], [address] PT Coag (PPP) [Time] 18.8 s High 11.7-14.9 [facility] Comment on above: Performed By: #### L 501.9985, L3300.0700, L3200.0500, L503.6030, L3130.0010, L501.4700, L3400.0700, L3100.1850, L503.6550, L300.3900, L500.4100, L7000.7000, L3000.0375, L3890.6202, L803.2200, L501.6710, L506.0400, L3300.0100, L3100.5450, L3100.5000, L501.9520, L3100.3425, L800.1280, L3100.5020, L503.5510, L501.5101, L3200.1100, L500.4050, L506.1001 ####[facility] [address] [place], [address] Prothrombin timeOrdered By: Son Adams on 03-07-2025 PT Coag (PPP) [Time] 18.8 s High 11.7-14.9 [facility] RBC Auto (Bld) [#/Vol]Ordere d By: Son Adams on 03-07-2025 RBC (Bld) [#/Vol] 4.16 10*6/uL Low 4.2-5.4 [facility] Screening total cholesterol/ high density lipoprotein (HDL) cholesterol ratioOrdered By: Son Adams on 03-07-2025 Cholesterol.total/Chol esterol in HDL [Mass ratio] 1.93 {ratio} [facility] Serum DNA double strand anti body assay (units/volume)Ordered By: Son Adams on 03-07-2025 DNA double strand Ab Qn (S) TNP [facility] Comment on above: Test not performed Serum IgG subclass 1 measure ment (mass/volume)Ordered By: Son Adams on 03-07-2025 IgG subclass 1 (S) [Mass/Vol] 1658 mg/dL High 248-810 [facility] Serum IgG subclass 2 measure ment (mass/volume)Ordered By: Son Adams on 03-07-2025 IgG subclass 2 (S) [Mass/Vol] 376 mg/dL 130-555 [facility] Serum IgG subclass 3 measure ment (mass/volume)Ordered By: Son Adams on 03-07-2025 IgG subclass 3 (S) [Mass/Vol] 135 mg/dL High 15-102 [facility] Serum Scl-70 antibody assay (units/volume)Ordered By: Son Adams on 03-07-2025 SCL-70 extractable nuclear Ab Qn (S) TNP [facility] Comment on above: Test not performed Serum creatinine measurement (mass/volume)Ordered By: Son Adams on 03-07-2025 Creatinine [Mass/Vol] 1.04 mg/dL 0.70-1.[address] [facility] Serum globulin measurement ( mass/volume)Ordered By: Son Adams on 03-07-2025 Globulin (S) [Mass/Vol] 4.2 g/dL High 2.2-3.9 [facility] Serum glucose measurement (m ass/volume)Ordered By: Son Adams on 03-07-2025 Glucose [Mass/Vol] 107 mg/dL High 70-99 [facility] Serum hepatitis B virus surf peterson antibody detectionOrdered By: Son Adams on 03-07-2025 HBV surface Ab Ql (S) Non-Reactive W [facility] Comment on above: <8.5 mIU/mL: Non-Nayeli ctive8.5<= x <11.5 mIU/mL: Indeterminate>=11.5 mIU/mL: Reactive Non Reactive: Inconsistent with immunity less than <10 mIU/mL Reactive: Consistent with immunity greater than or equal to 10 mIU/mL Serum immunoglobulin kappa l ight chains/immunoglobulin lambda light chains mass ratioOrdered By: Son Adams on 03-07-2025 Immunoglobulin light chains.kappa/Immunoglo bulin light chains.lambda (S) [Mass ratio] 1.40 0.26-1.65 [facility] Serum mitochondria antibody detectionOrdered By: Son Adams on 03-07-2025 Mitochondria Ab Ql (S) <20.0 Units 0.0-20.0 [facility] Comment on above: Negative 0.0 - 20.0 Equivocal 20.1 - 24.9 Positive >24.9Mitochondrial (M2) Antibodies are found in 90-96% ofpatients with primary biliary cirrhosis. Serum or plasma C reactive p rotein measurement (mass/volume)Ordered By: Son Adams on 03-07-2025 CRP [Mass/Vol] 5.20 mg/L High 0.0-3.0 [facility] Serum or plasma IgA measurem ent (mass/volume)Ordered By: Son Adams on 03-07-2025 IgA [Mass/Vol] 392 mg/dL High 87-352 [facility] Serum or plasma IgG measurem ent (mass/volume)Ordered By: Son Adams on 03-07-2025 IgG [Mass/Vol] 2865 mg/dL High 586-1602 [facility] IgG [Mass/Vol] Not Reportable [facility] Serum or plasma actin IgG an tibody assay (units/volume)Ordered By: Son Adams on 03-07-2025 Actin IgG Qn 10 Units 0-19 [facility] Comment on above: Negative 0 - 19 Weak positive 20 - 30 Moderate to strong positive >30 Actin Antibodies are found in 52-85% of patients with autoimmune hepatitis or chronic active hepatitis and in 22% of patients with primary biliary cirrhosis. Serum or plasma alanine rick otransferase (ALT) measurementOrdered By: Son Adams on 03-07-2025 ALT [Catalytic activity/Vol] 38 U/L High <35 [facility] Serum or plasma albumin latrice urement (mass/volume)Ordered By: Son Adams on 03-07-2025 Albumin [Mass/Vol] 3.5 g/dL 3.5-5.0 [facility] Serum or plasma albumin/glob ulin mass ratioOrdered By: Son Adams on 03-07-2025 Albumin/Globulin [Mass ratio] 0.8 {ratio} Low 0.9-2.4 [facility] Serum or plasma alkaline minda sphatase measurementOrdered By: Son Adams on 03-07-2025 ALP [Catalytic activity/Vol] 198 U/L High 35-104 [facility] Serum or plasma alpha 1 glob ulin measurement by electrophoresis (mass/volume)Ordered By: Son Adams on 03-07-2025 Alpha 1 globulin Elph [Mass/Vol] 0.3 g/dL 0.0-0.4 [facility] Alpha 1 globulin Elph [Mass/Vol] 0.4 g/dL 0.4-1.0 [facility] Serum or plasma beta globuli n measurement by electrophoresis (mass/volume)Ordered By: Son Adams on 03-07-2025 Beta globulin Elph [Mass/Vol] 0.8 g/dL 0.7-1.3 [facility] Serum or plasma calcium latrice urement (mass/volume)Ordered By: Son Adams on 03-07-2025 Calcium [Mass/Vol] 9.1 mg/dL 7.6-11.0 [facility] Serum or plasma cholesterol in HDL measurement (mass/volume)Ordered By: Son Adams on 03-07-2025 Cholesterol in HDL [Mass/Vol] 60 mg/dL >40 [facility] Comment on above: National Cholesterol Education Program (NCEP) guidelines:<40 mg/dL: Low HDL-cholesterol (major risk factor for CHD)>= 60 mg/dL: High HDL-cholesterol (negative risk factor for CHD)HDL-cholesterol is affected by a number of factors, e.g. smoking, exercise, hormones, sex and age. Serum or plasma cholesterol measurement (mass/volume)Ordered By: Son Adams on 03-07-2025 Cholesterol [Mass/Vol] 116 mg/dL <201 [facility] Comment on above: Cholesterol level, D esirable <200 mg/dLBorderline high cholesterol 200-239 mg/dLHigh cholesterol >=240 mg/dLRecommendations of the NCEP Adult Treatment Panel for the following risk-cutoff thresholds for the [place] population. Serum or plasma ferritin mic surement (mass/volume)Ordered By: Son Adams on 03-07-2025 Ferritin [Mass/Vol] 48 ng/mL 22-378 [facility] Serum or plasma gamma globul in measurement by electrophoresis (mass/volume)Ordered By: Son Adams on 03-07-2025 Gamma globulin Elph [Mass/Vol] 2.7 g/dL High 0.4-1.8 [facility] Serum or plasma hepatitis B virus surface antigen detection by immunoassayOrdered By: Son Adams on 03-07-2025 HBV surface Ag IA Ql Negative Negative [facility] Serum or plasma hepatitis C virus RNA measurement by probe and target amplification mOrdered By: Son Adams on 03-07-2025 HCV RNA PHYLLIS+probe Qn 3430 IU/mL . [facility] Serum or plasma immunoelectr ophoresis interpretation (nominal result)Ordered By: Son Adams on 03-07-2025 Interpretation IEP [Interp] Comment . [facility] Comment on above: No monoclonality det ected. Serum or plasma immunoglobul in kappa light chains measurement (mass/volume)Ordered By: Son Adams on 03-07-2025 Immunoglobulin light chains.kappa [Mass/Vol] 55.8 mg/L High 3.3-19.4 [facility] Serum or plasma iron saturat ion measurement (mass fraction)Ordered By: Son Adams on 03-07-2025 Iron saturation [Mass fraction] 30.0 % 13-59 [facility] Serum or plasma protein latrice urement (mass/volume)Ordered By: Son Adams on 03-07-2025 Protein [Mass/Vol] 7.6 g/dL 6.0-8.5 [facility] Serum or plasma urea nitroge n measurement (mass/volume)Ordered By: Son Adams on 03-07-2025 Urea nitrogen [Mass/Vol] 10 mg/dL 4-19 [facility] Sodium levelOrdered By: Leticia Adams on 03-07-2025 Sodium [Moles/Vol] 136 mmol/L 133-145 [facility] T4 Free Directon 03-07-2025 T4 FREE DIRECT 1.20 ng/dL Normal 0.76-1.46 [facility] Comment on above: Order Comment: Yady hernandez AFP Performed By: #### L 501.9985, L3300.0700, L3200.0500, L503.6030, L3130.0010, L501.4700, L3400.0700, L3100.1850, L503.6550, L300.3900, L500.4100, L7000.7000, L3000.0375, L3890.6202, L803.2200, L501.6710, L506.0400, L3300.0100, L3100.5450, L3100.5000, L501.9520, L3100.3425, L800.1280, L3100.5020, L503.5510, L501.5101, L3200.1100, L500.4050, L506.1001 ####[facility] [address] [place], [place], [id number] T4 freeOrdered By: Son torres on 03-07-2025 Free T4 [Mass/Vol] 1.20 ng/dL 0.76-1.46 [facility] TSH DL <= 0.005 mIU/L QnOrde red By: Son Adams on 03-07-2025 TSH Qn 1.920 uIU/mL 0.300-4.200 [facility] Thyroid Stim Hormone (TSH)on 03-07-2025 TSH 1.920 uIU/mL Normal 0.300-4.200 [facility] Comment on above: Performed By: #### L 501.9985, L3300.0700, L3200.0500, L503.6030, L3130.0010, L501.4700, L3400.0700, L3100.1850, L503.6550, L300.3900, L500.4100, L7000.7000, L3000.0375, L3890.6202, L803.2200, L501.6710, L506.0400, L3300.0100, L3100.5450, L3100.5000, L501.9520, L3100.3425, L800.1280, L3100.5020, L503.5510, L501.5101, L3200.1100, L500.4050, L506.1001 ####[facility] [address] [place], [address] Total proteinOrdered By: Alyson Adams on 03-07-2025 Protein [Mass/Vol] 7.9 g/dL 5.9-8.4 [facility] Triglycerides measurementOrd ered By: Son Adams on 03-07-2025 Triglyceride [Mass/Vol] 63 mg/dL <199 [facility] Comment on above: The drugs N-Acetylcy steine and Metamizole may falsely depress this assay. Normal range: <150 mg/dLBorderline High: 150-199 mg/dLHigh: 200-499 mg/dLVery High: >500 mg/dL Venous blood ammonia measure mentOrdered By: Son Adams on 03-07-2025 Ammonia (P) [Moles/Vol] 56.1 umol/L High 11-51 [facility] Vitamin D,25 Hydroxyon 03-07 Vitamin D 25-OH 30.1 ng/mL Normal 30-100 [facility] Comment on above: Result Comment: Roma min D StatusDeficiency: <20 ng/mL (50nmol/L)Insufficiency: 20-30 ng/mL (50-75 nmol/L)Sufficiency: 30-100 ng/mL (75-250 nmol/L)Toxicity: >100 ng/mL (>250 nmol/L) Performed By: #### L 501.9985, L3300.0700, L3200.0500, L503.6030, L3130.0010, L501.4700, L3400.0700, L3100.1850, L503.6550, L300.3900, L500.4100, L7000.7000, L3000.0375, L3890.6202, L803.2200, L501.6710, L506.0400, L3300.0100, L3100.5450, L3100.5000, L501.9520, L3100.3425, L800.1280, L3100.5020, L503.5510, L501.5101, L3200.1100, L500.4050, L506.1001 ####[facility] [address] [place], [address] White blood cell (WBC) count Ordered By: Son Adams on 03-07-2025 WBC (Bld) [#/Vol] 8.1 10*3/uL 4.4-11.0 [facility] Absolute lymphocyte countOrd ered By: Tresa Sandoval on 02-26-2025 Lymphocytes Auto (Unsp spec) [#/Vol] 1.02 10*3/uL 0.83-4.51 [facility] Absolute neutrophil countOrd ered By: Tresa Sandoval on 02-26-2025 Neutrophils (Bld) [#/Vol] 3.7 10*3/uL 2.0-7.7 [facility] Ammoniaon 02-26-2025 Ammonia (P) [Moles/Vol] 65.7 umol/L High 11-51 [facility] Comment on above: Performed By: #### L 500.4050, L501.9520, L503.5510, L100.0100 ####[facility] [address] [place], [place], [id number] Anion gap in Serum or Plasma Ordered By: Tresa Sandoval on 02-26-2025 Anion gap [Moles/Vol] 7 mmol/L 5-[address] [facility] Automated lymphocyte count a s percentage of total leukocytesOrdered By: Tresa Sandoval on 02-26-2025 Lymphocytes/100 WBC Auto (Unsp spec) 18.0 % Low 19-41 [facility] BUN/creatinine ratioOrdered By: Tresa Sandoval on 02-26-2025 Urea nitrogen/Creatinine [Mass ratio] 7.4 mg/mg Low 10-20 [facility] Basophil percentageOrdered B y: Tresa Sandoval on 02-26-2025 Basophils/100 WBC (Bld) 0.7 % 0-1 [facility] Bilirubin, totalOrdered By: Tresa Sandoval on 02-26-2025 Bilirubin [Mass/Vol] 2.75 mg/dL High 0.00-1.30 [facility] Blood manual differential co mment interpretation (narrative result)Ordered By: Tresa Sandoval on 02-26-2025 Manual differential comment Eliezer (Bld) [Interp] SCANNED [facility] CBC W/Diff, Automatedon PLT EST MKD DEC Normal ADEQ [facility] Comment on above: Performed By: #### L 500.4050, L501.9520, L503.5510, L100.0100 ####[facility] [address] [place], [address] SMEAR COMMENT SCANNED Normal [facility] Comment on above: Performed By: #### L 500.4050, L501.9520, L503.5510, L100.0100 ####[facility] [address] [place], [address] Carbon dioxide, total [Moles /volume] in Central venous bloodOrdered By: Tresa Sandoval on 02-26-2025 CO2 [Moles/Vol] 22.9 mmol/L 21.0-32.0 [facility] Chloride assayOrdered By: Андрей Sandoval on 02-26-2025 Chloride [Moles/Vol] 107 mmol/L 98-108 [facility] Comprehensive Metabolic Prof ilon 02-26-2025 Albumin [Mass/Vol] 3.0 g/dL Low 3.5-5.0 [facility] Comment on above: Performed By: #### L 500.4050, L501.9520, L503.5510, L100.0100 ####[facility] [address] [place], [address] Albumin/Globulin [Mass ratio] 0.8 {ratio} Low 0.9-2.4 [facility] Comment on above: Performed By: #### L 500.4050, L501.9520, L503.5510, L100.0100 ####[facility] [address] [place], [address] ALK PHOS 174 U/L High 35-104 [facility] Comment on above: Performed By: #### L 500.4050, L501.9520, L503.5510, L100.0100 ####[facility] [address] [place], [address] ALT [Catalytic activity/Vol] 48 U/L High <=34 [facility] Comment on above: Performed By: #### L 500.4050, L501.9520, L503.5510, L100.0100 ####[facility] [address] [place], [address] AST [Catalytic activity/Vol] 83 U/L High <=31 [facility] Comment on above: Performed By: #### L 500.4050, L501.9520, L503.5510, L100.0100 ####[facility] [address] [place], [address] Bilirubin [Mass/Vol] 2.75 mg/dL High 0.00-1.30 [facility] Comment on above: Performed By: #### L 500.4050, L501.9520, L503.5510, L100.0100 ####[facility] [address] [place], [address] BUN/CRE 7.4 RATIO Low 10-20 [facility] Comment on above: Performed By: #### L 500.4050, L501.9520, L503.5510, L100.0100 ####[facility] [address] [place], [address] Calcium [Mass/Vol] 9.0 mg/dL Normal 7.6-11.0 [facility] Comment on above: Performed By: #### L 500.4050, L501.9520, L503.5510, L100.0100 ####[facility] [address] [place], [address] Chloride [Moles/Vol] 107 mmol/L Normal 98-108 [facility] Comment on above: Performed By: #### L 500.4050, L501.9520, L503.5510, L100.0100 ####[facility] [address] [place], [address] CO2 [Moles/Vol] 22.9 mmol/L Normal 21.0-32.0 [facility] Comment on above: Performed By: #### L 500.4050, L501.9520, L503.5510, L100.0100 ####[facility] [address] [place], [address] Creatinine [Mass/Vol] 1.00 mg/dL Normal 0.70-1.[address] [facility] Comment on above: Performed By: #### L 500.4050, L501.9520, L503.5510, L100.0100 ####[facility] [address] [place], [address] GAP 7 Normal 5-15 [facility] Comment on above: Performed By: #### L 500.4050, L501.9520, L503.5510, L100.0100 ####[facility] [address] [place], [address] GFR/1.73 sq M.predicted among non-blacks MDRD (S/P/Bld) [Vol rate/Area] 68 mL/min/{1.73_m2} Normal >60 [facility] Comment on above: Result Comment: mL/m in/1.73m2 CKD-EPI Creatinine Equation (2020) Performed By: #### L 500.4050, L501.9520, L503.5510, L100.0100 ####[facility] [address] [place], [address] Globulin (S) [Mass/Vol] 3.8 g/dL Normal 2.2-4.2 [facility] Comment on above: Performed By: #### L 500.4050, L501.9520, L503.5510, L100.0100 ####[facility] [address] [place], [address] Glucose [Mass/Vol] 99 mg/dL Normal 70-99 [facility] Comment on above: Performed By: #### L 500.4050, L501.9520, L503.5510, L100.0100 ####[facility] [address] [place], [address] Potassium [Moles/Vol] 3.6 mmol/L Normal 3.3-5.[address] [facility] Comment on above: Performed By: #### L 500.4050, L501.9520, L503.5510, L100.0100 ####[facility] [address] [place], [address] Sodium [Moles/Vol] 137 mmol/L Normal 133-145 [facility] Comment on above: Performed By: #### L 500.4050, L501.9520, L503.5510, L100.0100 ####[facility] [address] [place], [address] T PROT 6.8 g/dL Normal 5.9-8.4 [facility] Comment on above: Performed By: #### L 500.4050, L501.9520, L503.5510, L100.0100 ####[facility] [address] [place], [address] Urea nitrogen [Mass/Vol] 7 mg/dL Normal 4-19 [facility] Comment on above: Performed By: #### L 500.4050, L501.9520, L503.5510, L100.0100 ####[facility] [address] [place], [address] Emergency Department Summary on 02-26-2025 Emergency Department Summary Normal [facility] Emergency Department Summary Normal [facility] Eosinophil percentageOrdered By: Tresa Sandoval on 02-26-2025 Eosinophils/100 WBC (Bld) 4.1 % 0-5 [facility] Erythrocyte distribution wid th ratioOrdered By: Tresa Sandoval on 02-26-2025 Erythrocyte distribution width (RBC) [Ratio] 17.2 % High 11.6-14.6 [facility] Erythrocyte distribution wid th standard deviationOrdered By: Tresa Sandoval on 02-26-2025 Erythrocyte distribution width (RBC) [Ratio] 58.9 fl High 35.1-43.9 [facility] Glomerular filtration rate ( GFR) estimation/1.73 sq m using serum, plasma, or whole bOrdered By: Tresasegundo Sandoval on 02-26-2025 GFR/1.73 sq M.predicted among non-blacks MDRD (S/P/Bld) [Vol rate/Area] 68 mL/min/{1.73_m2} >60 [facility] Comment on above: mL/min/1.73m2 CKD-EP I Creatinine Equation (2020) Hematocrit Auto (Bld) [Volum e fraction]Ordered By: Tresasegundo Sandoval on 02-26-2025 Hematocrit (Bld) [Volume fraction] 33.5 % Low 37-47 [facility] Hemoglobin measurementOrdere d By: Tresasegundo Parklinda on 02-26-2025 Hemoglobin (Bld) [Mass/Vol] 11.3 g/dL Low 12.0-15.0 [facility] Immature granulocytes/100 WB C Auto (Bld)Ordered By: Tresasegundo Sandoval on 02-26-2025 Immature granulocytes/100 WBC (Bld) 0.400 % 0.0-0.9 [facility] Comment on above: IG% - Immature Granu locytes (promyelocytes, myelocytes and metamyelocytes) > 1% indicates that a LEFT SHIFT is Present. Laboratory - Chemistry and C hemistry - challengeOrdered By: Tresasegundo Sandoval on 02-26-2025 AST [Catalytic activity/Vol] 83 U/L High <32 [facility] MCV (mean corpuscular volume ) determinationOrdered By: Tresasegundo Sandoval on 02-26-2025 MCV (RBC) [Entitic vol] 95.2 fL 81-99 [facility] Mean corpuscular hemoglobin (MCH) determinationOrdered By: [facility]resa [facility] MCH (RBC) [Entitic mass] 32.1 pg High 27.0-32.0 [facility] Mean corpuscular hemoglobin concentration (MCHC) determinationOrdered By: [facility]undo [facility] 02-26-2025 MCHC (RBC) [Mass/Vol] 33.7 g/dL 32-[address] [facility] Mean platelet volume determi nationOrdered By: Tresa Sandoval on 02-26-2025 Platelet mean volume (Bld) [Entitic vol] 11.6 fL 6.2-12.0 [facility] Monocyte percentageOrdered B y: Tresa Sandoval on 02-26-2025 Monocytes/100 WBC (Bld) 12.2 % High 0-10 [facility] Neutrophil percentageOrdered By: Tresa Sandoval on 02-26-2025 Neutrophils/100 WBC (Bld) 64.6 % 47-70 [facility] No Panel InformationOrdered By: Tresa Sandoval on 02-26-2025 83 U/L High <32 [facility] Nucleated red blood cell per centageOrdered By: Tresa Sandoval on 02-26-2025 Nucleated RBC/100 WBC (Bld) [Ratio] 0 % 0-5 [facility] Platelet countOrdered By: Андрей Sandoval on 02-26-2025 Platelets (Bld) [#/Vol] 43 10*3/uL Low 150-450 [facility] Comment on above: NUMEROUS TIMES, PLEA SE CALL IN AM. ps Platelet estimateOrdered By: Tresa Sandoval on 02-26-2025 Platelets LM Ql (Bld) MKD DEC ADEQ [facility] Potassium measurement (mass/ volume)Ordered By: Tresa Sandoval on 02-26-2025 Potassium (Unsp spec) [Mass/Vol] 3.6 mmol/L 3.3-5.1 [facility] RBC Auto (Bld) [#/Vol]Ordere d By: Tresa Sandoval on 02-26-2025 RBC (Bld) [#/Vol] 3.52 10*6/uL Low 4.2-5.4 [facility] Serum creatinine measurement (mass/volume)Ordered By: Tresa Sandoval on 02-26-2025 Creatinine [Mass/Vol] 1.00 mg/dL 0.70-1.[address] [facility] Serum globulin measurementOr dered By: Tresa Sandoval on 02-26-2025 Globulin (S) [Mass/Vol] 3.8 g/dL 2.2-4.2 [facility] Serum glucose measurement (m ass/volume)Ordered By: Tresa Sandoval on 02-26-2025 Glucose [Mass/Vol] 99 mg/dL 70-99 [facility] Serum or plasma alanine rick otransferase (ALT) measurementOrdered By: Tresa Sandoval on 02-26-2025 ALT [Catalytic activity/Vol] 48 U/L High <35 [facility] Serum or plasma albumin latrice urement (mass/volume)Ordered By: Tresa Sandoval on 02-26-2025 Albumin [Mass/Vol] 3.0 g/dL Low 3.5-5.0 [facility] Serum or plasma albumin/glob ulin mass ratioOrdered By: Tresa Sandoval on 02-26-2025 Albumin/Globulin [Mass ratio] 0.8 {ratio} Low 0.9-2.4 [facility] Serum or plasma alkaline minda sphatase measurementOrdered By: Tresa Sandoval on 02-26-2025 ALP [Catalytic activity/Vol] 174 U/L High 35-104 [facility] Serum or plasma calcium latrice urement (mass/volume)Ordered By: Tresa Sandoval on 02-26-2025 Calcium [Mass/Vol] 9.0 mg/dL 7.6-11.0 [facility] Serum or plasma urea nitroge n measurement (mass/volume)Ordered By: Tresa Sandoval on 02-26-2025 Urea nitrogen [Mass/Vol] 7 mg/dL 4-19 [facility] Sodium levelOrdered By: Maikol Sandoval on 02-26-2025 Sodium [Moles/Vol] 137 mmol/L 133-145 [facility] TSH DL <= 0.005 mIU/L QnOrde red By: Tresa Sandoval on 02-26-2025 TSH Qn 2.190 uIU/mL 0.300-4.200 [facility] Thyroid Stim Hormone (TSH)on 02-26-2025 TSH 2.190 uIU/mL Normal 0.300-4.200 [facility] Comment on above: Performed By: #### L 500.4050, L501.9539, L503.5510, L100.0100 ####[facility] [address] [place], [address] Total proteinOrdered By: Jeremy Sandoval on 02-26-2025 Protein [Mass/Vol] 6.8 g/dL 5.9-8.4 [facility] Venous blood ammonia measure mentOrdered By: Tresa Sandoval on 02-26-2025 Ammonia (P) [Moles/Vol] 65.7 umol/L High 11-51 [facility] White blood cell (WBC) count Ordered By: Tresa Sandoval on 02-26-2025 WBC (Bld) [#/Vol] 5.7 10*3/uL 4.4-11.0 [facility] Absolute lymphocyte countOrd ered By: Pedrito Rosario on 02-22-2025 Lymphocytes Auto (Unsp spec) [#/Vol] 1.12 10*3/uL 0.83-4.51 [facility] Absolute neutrophil countOrd ered By: Pedrito Rosario on 02-22-2025 Neutrophils (Bld) [#/Vol] 4.4 10*3/uL 2.0-7.7 [facility] Anion gap in Serum or Plasma Ordered By: Pedrito Rosario on 02-22-2025 Anion gap [Moles/Vol] 7 mmol/L 5-[address] [facility] Automated lymphocyte count a s percentage of total leukocytesOrdered By: Pedrito Rosario on 02-22-2025 Lymphocytes/100 WBC Auto (Unsp spec) 17.2 % Low 19-41 [facility] BUN/creatinine ratioOrdered By: Pedrito Rosario on 02-22-2025 Urea nitrogen/Creatinine [Mass ratio] 8.6 mg/mg Low 10-20 [facility] Basophil percentageOrdered B y: Pedrito Rosario on 02-22-2025 Basophils/100 WBC (Bld) 0.6 % 0-1 [facility] Bilirubin, totalOrdered By: Pedrito Rosario on 02-22-2025 Bilirubin [Mass/Vol] 2.14 mg/dL High 0.00-1.30 [facility] CBC W/Diff, Automatedon 01-26 PLT EST MKD DEC Normal ADEQ [facility] Comment on above: Performed By: #### L 100.0100, L501.2450, L500.4050 ####[facility] [address] [place], [address] Carbon dioxide, total [Moles /volume] in Central venous bloodOrdered By: Pedrito Rosario on 02-22-2025 CO2 [Moles/Vol] 22.6 mmol/L 21.0-32.0 [facility] Chloride assayOrdered By: Ayo Rosario on 02-22-2025 Chloride [Moles/Vol] 106 mmol/L 98-108 [facility] Comprehensive Metabolic Prof ilon 02-22-2025 Albumin [Mass/Vol] 3.3 g/dL Low 3.5-5.0 [facility] Comment on above: Performed By: #### L 100.0100, L501.2450, L500.4050 ####[facility] [address] [place], [address] Albumin/Globulin [Mass ratio] 0.8 {ratio} Low 0.9-2.4 [facility] Comment on above: Performed By: #### L 100.0100, L501.2450, L500.4050 ####[facility] [address] [place], [address] ALK PHOS 189 U/L High 35-104 [facility] Comment on above: Performed By: #### L 100.0100, L501.2450, L500.4050 ####[facility] [address] [place], [address] ALT [Catalytic activity/Vol] 56 U/L High <=34 [facility] Comment on above: Performed By: #### L 100.0100, L501.2450, L500.4050 ####[facility] [address] [place], [address] AST [Catalytic activity/Vol] 92 U/L High <=31 [facility] Comment on above: Performed By: #### L 100.0100, L501.2450, L500.4050 ####[facility] [address] [place], [address] Bilirubin [Mass/Vol] 2.14 mg/dL High 0.00-1.30 [facility] Comment on above: Performed By: #### L 100.0100, L501.2450, L500.4050 ####[facility] [address] [place], [address] BUN/CRE 8.6 RATIO Low 10-20 [facility] Comment on above: Performed By: #### L 100.0100, L501.2450, L500.4050 ####[facility] [address] [place], [address] Calcium [Mass/Vol] 8.8 mg/dL Normal 7.6-11.0 [facility] Comment on above: Performed By: #### L 100.0100, L501.2450, L500.4050 ####[facility] [address] [place], [address] Chloride [Moles/Vol] 106 mmol/L Normal 98-108 [facility] Comment on above: Performed By: #### L 100.0100, L501.2450, L500.4050 ####[facility] [address] [place], [address] CO2 [Moles/Vol] 22.6 mmol/L Normal 21.0-32.0 [facility] Comment on above: Performed By: #### L 100.0100, L501.2450, L500.4050 ####[facility] [address] [place], [address] Creatinine [Mass/Vol] 0.97 mg/dL Normal 0.70-1.[address] [facility] Comment on above: Performed By: #### L 100.0100, L501.2450, L500.4050 ####[facility] [address] [place], [address] ECRCL 70.88 ml/min Normal 50-250 [facility] Comment on above: Performed By: #### L 100.0100, L501.2450, L500.4050 ####[facility] [address] [place], [address] GAP 7 Normal 5-15 [facility] Comment on above: Performed By: #### L 100.0100, L501.2450, L500.4050 ####[facility] [address] [place], [address] GFR/1.73 sq M.predicted among non-blacks MDRD (S/P/Bld) [Vol rate/Area] 71 mL/min/{1.73_m2} Normal >60 [facility] Comment on above: Result Comment: mL/m in/1.73m2 CKD-EPI Creatinine Equation (2020) Performed By: #### L 100.0100, L501.2450, L500.4050 ####[facility] [address] [place], [address] Globulin (S) [Mass/Vol] 3.9 g/dL Normal 2.2-4.2 [facility] Comment on above: Performed By: #### L 100.0100, L501.2450, L500.4050 ####[facility] [address] [place], [address] Glucose [Mass/Vol] 93 mg/dL Normal 70-99 [facility] Comment on above: Performed By: #### L 100.0100, L501.2450, L500.4050 ####[facility] [address] [place], [address] Potassium [Moles/Vol] 3.4 mmol/L Normal 3.3-5.[address] [facility] Comment on above: Performed By: #### L 100.0100, L501.2450, L500.4050 ####[facility] [address] [place], [address] Sodium [Moles/Vol] 136 mmol/L Normal 133-145 [facility] Comment on above: Performed By: #### L 100.0100, L501.2450, L500.4050 ####[facility] [address] [place], [address] T PROT 7.2 g/dL Normal 5.9-8.4 [facility] Comment on above: Performed By: #### L 100.0100, L501.2450, L500.4050 ####[facility] [address] [place], [address] Urea nitrogen [Mass/Vol] 8 mg/dL Normal 4-19 [facility] Comment on above: Performed By: #### L 100.0100, L501.2450, L500.4050 ####[facility] [address] [place], [address] Eosinophil percentageOrdered By: Pedrito Rosario on 02-22-2025 Eosinophils/100 WBC (Bld) 3.8 % 0-5 [facility] [facility] Erythrocyte distribution wid th ratioOrdered By: Pedrito Rosario on 02-22-2025 Erythrocyte distribution width (RBC) [Ratio] 17.1 % High 11.6-14.6 [facility] Erythrocyte distribution wid th standard deviationOrdered By: Pedrito Rosario on 02-22-2025 Erythrocyte distribution width (RBC) [Ratio] 57.5 fl High 35.1-43.9 [facility] Glomerular filtration rate ( GFR) estimation/1.73 sq m using serum, plasma, or whole bOrdered By: Pedrito Rosario on 02-22-2025 GFR/1.73 sq M.predicted among non-blacks MDRD (S/P/Bld) [Vol rate/Area] 71 mL/min/{1.73_m2} >60 [facility] Comment on above: mL/min/1.73m2 CKD-EP I Creatinine Equation (2020) Hematocrit Auto (Bld) [Volum e fraction]Ordered By: Pedrito Rosario on 02-22-2025 Hematocrit (Bld) [Volume fraction] 34.5 % Low 37-47 [facility] Hemoglobin measurementOrdere d By: Pedrito Rosario on 02-22-2025 Hemoglobin (Bld) [Mass/Vol] 12.0 g/dL 12.0-15.0 [facility] Immature granulocytes/100 WB C Auto (Bld)Ordered By: Pedrito Rosario on 02-22-2025 Immature granulocytes/100 WBC (Bld) 0.500 % 0.0-0.9 [facility] Comment on above: IG% - Immature Granu locytes (promyelocytes, myelocytes and metamyelocytes) > 1% indicates that a LEFT SHIFT is Present. Laboratory - Chemistry and C hemistry - challengeOrdered By: Pedrito Rosario on 02-22-2025 AST [Catalytic activity/Vol] 92 U/L High <32 [facility] Lipaseon 02-22-2025 Lipase [Catalytic activity/Vol] 88 U/L High 13-75 [facility] Comment on above: Result Comment: My jimenez note:LIPASE revised reference range effective 23.New Lipase methodology. Expected to produce lower valuesthan the previous assay method.NEW Reference Range: 13 - 75 U/L Performed By: #### L 100.0100, L501.2450, L500.4050 ####[facility] [address] [place], [address] Lipase measurementOrdered By : Pedrito Rosario on 02-22-2025 Lipase [Catalytic activity/Vol] 88 U/L High 13-75 [facility] Comment on above: Please note:LIPASE r evised reference range effective 23. New Lipase methodology. Expected to produce lower values than the previous assay method. NEW Reference Range: 13 - 75 U/L MCV (mean corpuscular volume ) determinationOrdered By: Pedrito Rosario on 02-22-2025 MCV (RBC) [Entitic vol] 93.0 fL 81-99 [facility] Mean corpuscular hemoglobin (MCH) determinationOrdered By: Pedrito Rosario on 02-22-2025 MCH (RBC) [Entitic mass] 32.3 pg High 27.0-32.0 [facility] Mean corpuscular hemoglobin concentration (MCHC) determinationOrdered By: Pedrito Rosario on 02-22-2025 MCHC (RBC) [Mass/Vol] 34.8 g/dL 32-[address] [facility] Mean platelet volume determi nationOrdered By: Pedrito Rosario on 02-22-2025 Platelet mean volume (Bld) [Entitic vol] 11.1 fL 6.2-12.0 [facility] Monocyte percentageOrdered B y: Pedrito Rosario on 02-22-2025 Monocytes/100 WBC (Bld) 10.6 % High 0-10 [facility] Neutrophil percentageOrdered By: Pedrito Rosario on 02-22-2025 Neutrophils/100 WBC (Bld) 67.3 % 47-70 [facility] No Panel InformationOrdered By: Pedrito Rosario on 02-22-2025 92 U/L High <32 [facility] Nucleated red blood cell per centageOrdered By: Pedrito Rosario on 02-22-2025 Nucleated RBC/100 WBC (Bld) [Ratio] 0 % 0-5 [facility] Platelet countOrdered By: To farzana Rosario on 02-22-2025 Platelets (Bld) [#/Vol] 39 10*3/uL Low 150-450 [facility] Comment on above: RESULTS CALLED TO HEMA COULTER 02/22/25 0031 Robert Nieto.REPORT READ BACK BY SAME. Platelet estimateOrdered By: Pedrito Rosario on 02-22-2025 Platelets LM Ql (Bld) MKD DEC ADEQ [facility] Potassium measurement (mass/ volume)Ordered By: Pedrito Rosario on 02-22-2025 Potassium (Unsp spec) [Mass/Vol] 3.4 mmol/L 3.3-5.1 [facility] RBC Auto (Bld) [#/Vol]Ordere d By: Pedrito Rosario on 02-22-2025 RBC (Bld) [#/Vol] 3.71 10*6/uL Low 4.2-5.4 [facility] Serum creatinine measurement (mass/volume)Ordered By: Pedrito Rosario on 02-22-2025 Creatinine [Mass/Vol] 0.97 mg/dL 0.70-1.[address] [facility] Serum globulin measurementOr dered By: Pedrito Rosario on 02-22-2025 Globulin (S) [Mass/Vol] 3.9 g/dL 2.2-4.2 [facility] Serum glucose measurement (m ass/volume)Ordered By: Pedrito Rosario on 02-22-2025 Glucose [Mass/Vol] 93 mg/dL 70-99 [facility] Serum or plasma alanine rick otransferase (ALT) measurementOrdered By: Pedrito Rosairo on 02-22-2025 ALT [Catalytic activity/Vol] 56 U/L High <35 [facility] Serum or plasma albumin latrice urement (mass/volume)Ordered By: Pedrito Rosario on 02-22-2025 Albumin [Mass/Vol] 3.3 g/dL Low 3.5-5.0 [facility] Serum or plasma albumin/glob ulin mass ratioOrdered By: Pedrito Rosario on 02-22-2025 Albumin/Globulin [Mass ratio] 0.8 {ratio} Low 0.9-2.4 [facility] Serum or plasma alkaline minda sphatase measurementOrdered By: Pedrito Rosario on 02-22-2025 ALP [Catalytic activity/Vol] 189 U/L High 35-104 [facility] Serum or plasma calcium latrice urement (mass/volume)Ordered By: Pedrito Rosario on 02-22-2025 Calcium [Mass/Vol] 8.8 mg/dL 7.6-11.0 [facility] Serum or plasma urea nitroge n measurement (mass/volume)Ordered By: Pedrito Rosario on 02-22-2025 Urea nitrogen [Mass/Vol] 8 mg/dL 4-19 [facility] Sodium levelOrdered By: Pedrito Rosario on 02-22-2025 Sodium [Moles/Vol] 136 mmol/L 133-145 [facility] Total proteinOrdered By: Mike Rosario on 02-22-2025 Protein [Mass/Vol] 7.2 g/dL 5.9-8.4 [facility] White blood cell (WBC) count Ordered By: Pedrito Rosario on 02-22-2025 WBC (Bld) [#/Vol] 6.5 10*3/uL 4.4-11.0 [facility] Abdomen/Pelvis without Conto n 02-21-2025 Abdomen/Pelvis without Cont Normal [facility] Chest PA and Lateralon 02-21 Chest PA and Lateral Normal [facility] Emergency Department Summary on 02-21-2025 Emergency Department Summary Normal [facility] Emergency Department Summary on 02-08-2025 Emergency Department Summary Normal [facility] Absolute lymphocyte countOrd ered By: Tresa Sandoval on 02-07-2025 Lymphocytes Auto (Unsp spec) [#/Vol] 1.40 10*3/uL 0.83-4.51 [facility] Absolute neutrophil countOrd ered By: Tresa Sandoval on 02-07-2025 Neutrophils (Bld) [#/Vol] 4.5 10*3/uL 2.0-7.7 [facility] Ammoniaon 02-07-2025 Ammonia (P) [Moles/Vol] 91.2 umol/L High [facility] Comment on above: Performed By: #### L 500.4050, L100.0100, [id number] ####[facility] [address] [place], [place], [address] Anion gap in Serum or Plasma Ordered By: Tresa Sandoval on 02-07-2025 Anion gap [Moles/Vol] 8 mmol/L 02-[address] [facility] Automated lymphocyte count a s percentage of total leukocytesOrdered By: Tresa Sandoval on 02-07-2025 Lymphocytes/100 WBC Auto (Unsp spec) 20.0 % [facility] BUN/creatinine ratioOrdered By: Tresa Sandoval on 02-07-2025 Urea nitrogen/Creatinine [Mass ratio] 11.1 mg/mg 07-15 [facility] Basophil percentageOrdered B y: Tresa Sandoval on 02-07-2025 Basophils/100 WBC (Bld) 0.7 % 0 [facility] Bilirubin, totalOrdered By: Tresa Sandoval on 02-07-2025 Bilirubin [Mass/Vol] 1.77 mg/dL High 0.00-1.30 [facility] CBC W/Diff, Automatedon 01-24 PLT EST MOD DEC Normal ADEQ [facility] Comment on above: Performed By: #### L 500.4050, L100.0100, [id number] ####[facility] [address] [place], [address] Carbon dioxide, total [Moles /volume] in Central venous bloodOrdered By: Tresa Sandoval on 02-07-2025 CO2 [Moles/Vol] 19.5 mmol/L Low 21.0-32.0 [facility] Chloride assayOrdered By: Андрей Sandoval on 02-07-2025 Chloride [Moles/Vol] 108 mmol/L 98-108 [facility] Comprehensive Metabolic Prof ilon 02-07-2025 Albumin [Mass/Vol] 3.2 g/dL Low 3.5-5.0 [facility] Comment on above: Performed By: #### L [id number], L100.0100, [id number] ####[facility] [address] [place], [address] Albumin/Globulin [Mass ratio] 0.8 {ratio} Low 0.9-2.4 [facility] Comment on above: Performed By: #### L 500.4050, L100.0100, [id number] ####[facility] [address] [place], [address] ALK PHOS 171 U/L High 35-104 [facility] Comment on above: Performed By: #### L 500.4050, L100.0100, [id number] ####[facility] [address] [place], [address] ALT [Catalytic activity/Vol] 79 U/L High <=34 [facility] Comment on above: Performed By: #### L 500.4050, L100.0100, [id number] ####[facility] [address] [place], [address] AST [Catalytic activity/Vol] 103 U/L High <=31 [facility] Comment on above: Performed By: #### L 500.4050, L100.0100, [id number] ####[facility] [address] [place], [address] Bilirubin [Mass/Vol] 1.77 mg/dL High 0.00-1.30 [facility] Comment on above: Performed By: #### L 500.4050, L100.0100, [id number] ####[facility] [address] [place], [address] BUN/CRE 11.1 RATIO Normal 10-20 [facility] Comment on above: Performed By: #### L 500.4050, L100.0100, [id number] ####[facility] [address] [place], [address] Calcium [Mass/Vol] 9.1 mg/dL Normal 7.6-11.0 [facility] Comment on above: Performed By: #### L 500.4050, L100.0100, [id number] ####[facility] [address] [place], [address] Chloride [Moles/Vol] 108 mmol/L Normal 98-108 [facility] Comment on above: Performed By: #### L 500.4050, L100.0100, [id number] ####[facility] [address] [place], [address] CO2 [Moles/Vol] 19.5 mmol/L Low 21.0-32.0 [facility] Comment on above: Performed By: #### L 500.4050, L100.0100, [id number] ####[facility] [address] [place], [address] Creatinine [Mass/Vol] 0.98 mg/dL Normal 0.70-1.[address] [facility] Comment on above: Performed By: #### L 500.4050, L100.0100, [id number] ####[facility] [address] [place], [address] GAP 8 Normal 5-15 [facility] Comment on above: Performed By: #### L 500.4050, L100.0100, [id number] ####[facility] [address] [place], [address] GFR/1.73 sq M.predicted among non-blacks MDRD (S/P/Bld) [Vol rate/Area] 70 mL/min/{1.73_m2} Normal >60 [facility] Comment on above: Result Comment: mL/m in/1.73m2 CKD-EPI Creatinine Equation (2020) Performed By: #### L 500.4050, L100.0100, [id number] ####[facility] [address] [place], [address] Globulin (S) [Mass/Vol] 3.8 g/dL Normal 2.2-4.2 [facility] Comment on above: Performed By: #### L 500.4050, L100.0100, [id number] ####[facility] [address] [place], [address] Glucose [Mass/Vol] 81 mg/dL Normal 70-99 [facility] Comment on above: Performed By: #### L 500.4050, L100.0100, [id number] ####[facility] [address] [place], [address] Potassium [Moles/Vol] 4.0 mmol/L Normal 3.3-5.[address] [facility] Comment on above: Performed By: #### L 500.4050, L100.0100, [id number] ####[facility] [address] [place], [address] Sodium [Moles/Vol] 135 mmol/L Normal 133-145 [facility] Comment on above: Performed By: #### L 500.4050, L100.0100, [id number] ####[facility] [address] [place], [address] T PROT 7.1 g/dL Normal 5.9-8.4 [facility] Comment on above: Performed By: #### L 500.4050, L100.0100, [id number] ####[facility] [address] [place], [address] Urea nitrogen [Mass/Vol] 11 mg/dL Normal 4-19 [facility] Comment on above: Performed By: #### L 500.4050, L100.0100, [id number] ####[facility] [address] [place], [address] Eosinophil percentageOrdered By: Tresa Sandoval on 02-07-2025 Eosinophils/100 WBC (Bld) 4.1 % 0-5 [facility] Erythrocyte distribution wid th ratioOrdered By: Tresa Sandoval on 02-07-2025 Erythrocyte distribution width (RBC) [Ratio] 16.1 % High 11.6-14.6 [facility] Erythrocyte distribution wid th standard deviationOrdered By: Tresa Sandoval on 02-07-2025 Erythrocyte distribution width (RBC) [Ratio] 54.2 fl High 35.1-43.9 [facility] Glomerular filtration rate ( GFR) estimation/1.73 sq m using serum, plasma, or whole bOrdered By: Tresa Sandoval on 02-07-2025 GFR/1.73 sq M.predicted among non-blacks MDRD (S/P/Bld) [Vol rate/Area] 70 mL/min/{1.73_m2} >60 [facility] Comment on above: mL/min/1.73m2 CKD-EP I Creatinine Equation (2020) Hematocrit Auto (Bld) [Volum e fraction]Ordered By: Tresa Sandoval on 02-07-2025 Hematocrit (Bld) [Volume fraction] 37.0 % 37-47 [facility] Hemoglobin measurementOrdere d By: Tresa Sandoval on 02-07-2025 Hemoglobin (Bld) [Mass/Vol] 12.9 g/dL 12.0-15.0 [facility] Immature granulocytes/100 WB C Auto (Bld)Ordered By: Tresa Sandoval on 02-07-2025 Immature granulocytes/100 WBC (Bld) 0.300 % 0.0-0.9 [facility] Comment on above: IG% - Immature Granu locytes (promyelocytes, myelocytes and metamyelocytes) > 1% indicates that a LEFT SHIFT is Present. Laboratory - Chemistry and C hemistry - challengeOrdered By: Tresa Sandoval on 02-07-2025 AST [Catalytic activity/Vol] 103 U/L High <32 [facility] MCV (mean corpuscular volume ) determinationOrdered By: Tresa Sandoval on 02-07-2025 MCV (RBC) [Entitic vol] 92.5 fL 81-99 [facility] Mean corpuscular hemoglobin (MCH) determinationOrdered By: Tresasegundo Sandoval 02-07-2025 MCH (RBC) [Entitic mass] 32.3 pg High 27.0-32.0 [facility] Mean corpuscular hemoglobin concentration (MCHC) determinationOrdered By: Tresa Sandoval 02-07-2025 MCHC (RBC) [Mass/Vol] 34.9 g/dL 32-[address] [facility] Mean platelet volume determi nationOrdered By: Tresa Sandoval on 02-07-2025 Platelet mean volume (Bld) [Entitic vol] 12.2 fL High 6.2-12.0 [facility] Monocyte percentageOrdered B y: Tresa Sanodval on 02-07-2025 Monocytes/100 WBC (Bld) 11.3 % High 0-10 [facility] Neutrophil percentageOrdered By: Tresasegundo Sandoval on 02-07-2025 Neutrophils/100 WBC (Bld) 63.6 % 47-70 [facility] No Panel InformationOrdered By: Tresa Sandoval on 02-07-2025 103 U/L High <32 [facility] Nucleated red blood cell per centageOrdered By: Tresa Sandoval on 02-07-2025 Nucleated RBC/100 WBC (Bld) [Ratio] 0 % 0-5 [facility] Platelet countOrdered By: Андрей Sandoval on 02-07-2025 Platelets (Bld) [#/Vol] 50 10*3/uL Low 150-450 [facility] Comment on above: CRITICAL VALUE RODRIGUEZ D TO TONI BRAXTON02/07/25 1357 Ángela Watkins.RESULTS READ BACK BY SAME. Platelet estimateOrdered By: Tresa Sandoval on 02-07-2025 Platelets LM Ql (Bld) MOD DEC ADEQ [facility] Potassium measurement (mass/ volume)Ordered By: Tresa Sandoval on 02-07-2025 Potassium (Unsp spec) [Mass/Vol] 4.0 mmol/L 3.3-5.1 [facility] RBC Auto (Bld) [#/Vol]Ordere d By: Tresa Sandoval on 02-07-2025 RBC (Bld) [#/Vol] 4.00 10*6/uL Low 4.2-5.4 [facility] Serum creatinine measurement (mass/volume)Ordered By: Tresa aSndoval on 02-07-2025 Creatinine [Mass/Vol] 0.98 mg/dL 0.70-1.[address] [facility] Serum globulin measurementOr dered By: Tresa Sandoval on 02-07-2025 Globulin (S) [Mass/Vol] 3.8 g/dL 2.2-4.2 [facility] Serum glucose measurement (m ass/volume)Ordered By: Tresa Sandoval on 02-07-2025 Glucose [Mass/Vol] 81 mg/dL 70-99 [facility] Serum or plasma alanine rick otransferase (ALT) measurementOrdered By: Tresa Sandoval on 02-07-2025 ALT [Catalytic activity/Vol] 79 U/L High <35 [facility] Serum or plasma albumin latrice urement (mass/volume)Ordered By: Tresa Sandoval on 02-07-2025 Albumin [Mass/Vol] 3.2 g/dL Low 3.5-5.0 [facility] Serum or plasma albumin/glob ulin mass ratioOrdered By: Tresa Sandoval on 02-07-2025 Albumin/Globulin [Mass ratio] 0.8 {ratio} Low 0.9-2.4 [facility] Serum or plasma alkaline minda sphatase measurementOrdered By: Tresa Sandoval on 02-07-2025 ALP [Catalytic activity/Vol] 171 U/L High 35-104 [facility] Serum or plasma calcium latrice urement (mass/volume)Ordered By: Tresa Sandoval on 02-07-2025 Calcium [Mass/Vol] 9.1 mg/dL 7.6-11.0 [facility] Serum or plasma urea nitroge n measurement (mass/volume)Ordered By: Tresa Sandoval on 02-07-2025 Urea nitrogen [Mass/Vol] 11 mg/dL 4-19 [facility] Sodium levelOrdered By: Maikol Sandoval on 02-07-2025 Sodium [Moles/Vol] 135 mmol/L 133-145 [facility] Total proteinOrdered By: Jeremy Sandoval on 02-07-2025 Protein [Mass/Vol] 7.1 g/dL 5.9-8.4 [facility] Venous blood ammonia measure mentOrdered By: Tresa Sandoval on 02-07-2025 Ammonia (P) [Moles/Vol] 91.2 umol/L High 11-51 [facility] White blood cell (WBC) count Ordered By: Tresa Sandoval on 02-07-2025 WBC (Bld) [#/Vol] 7.0 10*3/uL 4.4-11.0 [facility] Abdomen/Pelvis W IV Cont ONL Yon 02-04-2025 Abdomen/Pelvis W IV Cont ONLY Normal [facility] Absolute lymphocyte countOrd ered By: ED PROVIDER on 02-04-2025 Lymphocytes Auto (Unsp spec) [#/Vol] 1.26 10*3/uL 0.83-4.51 [facility] Absolute neutrophil countOrd ered By: ED PROVIDER on 02-04-2025 Neutrophils (Bld) [#/Vol] 4.2 10*3/uL 2.0-7.7 [facility] Anion gap in Serum or Plasma Ordered By: ED PROVIDER on 02-04-2025 Anion gap [Moles/Vol] 8 mmol/L 5-[address] [facility] Automated lymphocyte count a s percentage of total leukocytesOrdered By: ED PROVIDER on 02-04-2025 Lymphocytes/100 WBC Auto (Unsp spec) 19.7 % 19-41 [facility] BUN/creatinine ratioOrdered By: ED PROVIDER on 02-04-2025 Urea nitrogen/Creatinine [Mass ratio] 12.3 mg/mg 10-20 [facility] Basophil percentageOrdered B y: ED PROVIDER on 02-04-2025 Basophils/100 WBC (Bld) 0.8 % 0-1 [facility] Bilirubin, totalOrdered By: ED PROVIDER on 02-04-2025 Bilirubin [Mass/Vol] 1.98 mg/dL High 0.00-1.30 [facility] CBC W/Diff, Automatedon 01-24 PLT EST MKD DEC Normal ADEQ [facility] Comment on above: Performed By: #### L 500.4050, L700.6800, L501.2450, L100.0100 ####[facility] [address] [place], [place], [id number] Carbon dioxide, total [Moles /volume] in Central venous bloodOrdered By: ED PROVIDER on 02-04-2025 CO2 [Moles/Vol] 20.4 mmol/L Low 21.0-32.0 [facility] Chloride assayOrdered By: ED PROVIDER on 02-04-2025 Chloride [Moles/Vol] 107 mmol/L 98-108 [facility] Comprehensive Metabolic Prof ilon 02-04-2025 Albumin [Mass/Vol] 3.2 g/dL Low 3.5-5.0 [facility] Comment on above: Performed By: #### L 500.4050, [id number], L501.2450, L100.0100 ####[facility] [address] [place], [address] Albumin/Globulin [Mass ratio] 0.8 {ratio} Low 0.9-2.4 [facility] Comment on above: Performed By: #### L 500.4050, [id number], L501.2450, L100.0100 ####[facility] [address] [place], [address] ALK PHOS 170 U/L High 35-104 [facility] Comment on above: Performed By: #### L 500.4050, [id number], L501.2450, L100.0100 ####[facility] [address] [place], [address] ALT [Catalytic activity/Vol] 94 U/L High <=34 [facility] Comment on above: Performed By: #### L 500.4050, L700.6800, L501.2450, L100.0100 ####[facility] [address] [place], [address] AST [Catalytic activity/Vol] 121 U/L High <=31 [facility] Comment on above: Performed By: #### L 500.4050, [id number], L501.2450, L100.0100 ####[facility] [address] [place], [address] Bilirubin [Mass/Vol] 1.98 mg/dL High 0.00-1.30 [facility] Comment on above: Performed By: #### L 500.4050, [id number], L501.2450, L100.0100 ####[facility] [address] [place], [address] BUN/CRE 12.3 RATIO Normal 10-20 [facility] Comment on above: Performed By: #### L 500.4050, [id number], L501.2450, L100.0100 ####[facility] [address] [place], [address] Calcium [Mass/Vol] 9.1 mg/dL Normal 7.6-11.0 [facility] Comment on above: Performed By: #### L 500.4050, [id number], L501.2450, L100.0100 ####[facility] [address] [place], [address] Chloride [Moles/Vol] 107 mmol/L Normal 98-108 [facility] Comment on above: Performed By: #### L 500.4050, [id number], L501.2450, L100.0100 ####[facility] [address] [place], [address] CO2 [Moles/Vol] 20.4 mmol/L Low 21.0-32.0 [facility] Comment on above: Performed By: #### L 500.4050, [id number], L501.2450, L100.0100 ####[facility] [address] [place], [address] Creatinine [Mass/Vol] 0.92 mg/dL Normal 0.70-1.[address] [facility] Comment on above: Performed By: #### L 500.4050, [id number], L501.2450, L100.0100 ####[facility] [address] [place], [address] ECRCL 91.94 ml/min Normal 50-250 [facility] Comment on above: Performed By: #### L 500.4050, [id number], L501.2450, L100.0100 ####[facility] [address] [place], [address] GAP 8 Normal 5-15 [facility] Comment on above: Performed By: #### L 500.4050, L700.6800, L501.2450, L100.0100 ####[facility] [address] [place], [address] GFR/1.73 sq M.predicted among non-blacks MDRD (S/P/Bld) [Vol rate/Area] 75 mL/min/{1.73_m2} Normal >60 [facility] Comment on above: Result Comment: mL/m in/1.73m2 CKD-EPI Creatinine Equation (2020) Performed By: #### L 500.4050, L700.6800, L501.2450, L100.0100 ####[facility] [address] [place], [address] Globulin (S) [Mass/Vol] 4.1 g/dL Normal 2.2-4.2 [facility] Comment on above: Performed By: #### L 500.4050, L700.6800, L501.2450, L100.0100 ####[facility] [facility] [id number] [place], [address] Glucose [Mass/Vol] 147 mg/dL High 70-99 [facility] Comment on above: Performed By: #### L 500.4050, L700.6800, L501.2450, L100.0100 ####[facility] [address] [place], [address] Potassium [Moles/Vol] 4.1 mmol/L Normal 3.3-5.[address] [facility] Comment on above: Performed By: #### L 500.4050, L700.6800, L501.2450, L100.0100 ####[facility] [address] [place], [address] Sodium [Moles/Vol] 136 mmol/L Normal 133-145 [facility] Comment on above: Performed By: #### L 500.4050, L700.6800, L501.2450, L100.0100 ####[facility] [address] [place], [address] T PROT 7.3 g/dL Normal 5.9-8.4 [facility] Comment on above: Performed By: #### L 500.4050, L700.6800, L501.2450, L100.0100 ####[facility] [address] [place], [address] Urea nitrogen [Mass/Vol] 11 mg/dL Normal 4-19 [facility] Comment on above: Performed By: #### L 500.4050, L700.6800, L501.2450, L100.0100 ####[facility] [address] [place], [address] Emergency Department Summary on 02-04-2025 Emergency Department Summary Normal [facility] Eosinophil percentageOrdered By: ED PROVIDER on 02-04-2025 Eosinophils/100 WBC (Bld) 3.4 % 0-5 [facility] Erythrocyte distribution wid th ratioOrdered By: ED PROVIDER on 02-04-2025 Erythrocyte distribution width (RBC) [Ratio] 16.0 % High 11.6-14.6 [facility] Erythrocyte distribution wid th standard deviationOrdered By: ED PROVIDER on 02-04-2025 Erythrocyte distribution width (RBC) [Ratio] 54.3 fl High 35.1-43.9 [facility] Glomerular filtration rate ( GFR) estimation/1.73 sq m using serum, plasma, or whole bOrdered By: ED PROVIDER on 02-04-2025 GFR/1.73 sq M.predicted among non-blacks MDRD (S/P/Bld) [Vol rate/Area] 75 mL/min/{1.73_m2} >60 [facility] Comment on above: mL/min/1.73m2 CKD-EP I Creatinine Equation (2020) Hematocrit Auto (Bld) [Volum e fraction]Ordered By: ED PROVIDER on 02-04-2025 Hematocrit (Bld) [Volume fraction] 37.2 % 37-47 [facility] Hemoglobin measurementOrdere d By: ED PROVIDER on 02-04-2025 Hemoglobin (Bld) [Mass/Vol] 13.1 g/dL 12.0-15.0 [facility] Immature granulocytes/100 WB C Auto (Bld)Ordered By: ED PROVIDER on 02-04-2025 Immature granulocytes/100 WBC (Bld) 0.300 % 0.0-0.9 [facility] Comment on above: IG% - Immature Granu locytes (promyelocytes, myelocytes and metamyelocytes) > 1% indicates that a LEFT SHIFT is Present. Laboratory - Chemistry and C hemistry - challengeOrdered By: ED PROVIDER on 02-04-2025 AST [Catalytic activity/Vol] 121 U/L High <32 [facility] Lipaseon 02-04-2025 Lipase [Catalytic activity/Vol] 83 U/L High 13-75 [facility] Comment on above: Result Comment: My jimenez note:LIPASE revised reference range effective 23.New Lipase methodology. Expected to produce lower valuesthan the previous assay method.NEW Reference Range: 13 - 75 U/L Performed By: #### L 500.4050, L700.6800, L501.2450, L100.0100 ####[facility] [address] [place], [address] Lipase measurementOrdered By : ED PROVIDER on 02-04-2025 Lipase [Catalytic activity/Vol] 83 U/L High 13-75 [facility] Comment on above: Please note:LIPASE r evised reference range effective 23. New Lipase methodology. Expected to produce lower values than the previous assay method. NEW Reference Range: 13 - 75 U/L MCV (mean corpuscular volume ) determinationOrdered By: ED PROVIDER on 02-04-2025 MCV (RBC) [Entitic vol] 93.0 fL 81-99 [facility] Mean corpuscular hemoglobin (MCH) determinationOrdered By: ED PROVIDER on 02-04-2025 MCH (RBC) [Entitic mass] 32.8 pg High 27.0-32.0 [facility] Mean corpuscular hemoglobin concentration (MCHC) determinationOrdered By: ED PROVIDER on 02-04-2025 MCHC (RBC) [Mass/Vol] 35.2 g/dL 32-[address] [facility] Mean platelet volume determi nationOrdered By: ED PROVIDER on 02-04-2025 Platelet mean volume (Bld) [Entitic vol] 12.0 fL 6.2-12.0 [facility] Monocyte percentageOrdered B y: ED PROVIDER on 02-04-2025 Monocytes/100 WBC (Bld) 9.7 % 0-10 [facility] Neutrophil percentageOrdered By: ED PROVIDER on 02-04-2025 Neutrophils/100 WBC (Bld) 66.1 % 47-70 [facility] No Panel InformationOrdered By: ED PROVIDER on 02-04-2025 121 U/L High <32 [facility] Nucleated red blood cell per centageOrdered By: ED PROVIDER on 02-04-2025 Nucleated RBC/100 WBC (Bld) [Ratio] 0 % 0-5 [facility] Platelet countOrdered By: ED PROVIDER on 02-04-2025 Platelets (Bld) [#/Vol] 49 10*3/uL Low 150-450 [facility] Comment on above: CRITICAL VALUE RODRIGUEZ D TO JIL CAO (ER)02/04/25 1135 Mariah ValienteRESULTS READ BACK BY SAME. Platelet estimateOrdered By: ED PROVIDER on 02-04-2025 Platelets LM Ql (Bld) MKD DEC ADEQ [facility] Potassium measurement (mass/ volume)Ordered By: ED PROVIDER on 02-04-2025 Potassium (Unsp spec) [Mass/Vol] 4.1 mmol/L 3.3-5.1 [facility] ,Serum,hCG Quali.on 02-04-2025 HCG, SERUM QUAL Negative Normal [facility] Comment on above: Performed By: #### L 500.4050, L700.6800, L501.2450, L100.0100 ####[facility] [id number], [address] RBC Auto (Bld) [#/Vol]Ordere d By: ED PROVIDER on 02-04-2025 RBC (Bld) [#/Vol] 4.00 10*6/uL Low 4.2-5.4 [facility] Serum beta-hCG test, qualita tiveOrdered By: ED PROVIDER on 02-04-2025 Beta HCG ( test) Ql Negative [facility] Serum creatinine measurement (mass/volume)Ordered By: ED PROVIDER on 02-04-2025 Creatinine [Mass/Vol] 0.92 mg/dL 0.70-1.[address] [facility] Serum globulin measurementOr dered By: ED PROVIDER on 02-04-2025 Globulin (S) [Mass/Vol] 4.1 g/dL 2.2-4.2 [facility] Serum glucose measurement (m ass/volume)Ordered By: ED PROVIDER on 02-04-2025 Glucose [Mass/Vol] 147 mg/dL High 70-99 [facility] Serum or plasma alanine rick otransferase (ALT) measurementOrdered By: ED PROVIDER on 02-04-2025 ALT [Catalytic activity/Vol] 94 U/L High <35 [facility] Serum or plasma albumin latrice urement (mass/volume)Ordered By: ED PROVIDER on 02-04-2025 Albumin [Mass/Vol] 3.2 g/dL Low 3.5-5.0 [facility] Serum or plasma albumin/glob ulin mass ratioOrdered By: ED PROVIDER on 02-04-2025 Albumin/Globulin [Mass ratio] 0.8 {ratio} Low 0.9-2.4 [facility] Serum or plasma alkaline minda sphatase measurementOrdered By: ED PROVIDER on 02-04-2025 ALP [Catalytic activity/Vol] 170 U/L High 35-104 [facility] Serum or plasma calcium latrice urement (mass/volume)Ordered By: ED PROVIDER on 02-04-2025 Calcium [Mass/Vol] 9.1 mg/dL 7.6-11.0 [facility] Serum or plasma urea nitroge n measurement (mass/volume)Ordered By: ED PROVIDER on 02-04-2025 Urea nitrogen [Mass/Vol] 11 mg/dL 4-19 [facility] Sodium levelOrdered By: ED Cole GARNER on 02-04-2025 Sodium [Moles/Vol] 136 mmol/L 133-145 [facility] Total proteinOrdered By: ED PROVIDER on 02-04-2025 Protein [Mass/Vol] 7.3 g/dL 5.9-8.4 [facility] White blood cell (WBC) count Ordered By: ED PROVIDER on 02-04-2025 WBC (Bld) [#/Vol] 6.4 10*3/uL 4.4-11.0 [facility] Gastroenterology Visit Repor ton 01-23-2025 Gastroenterology Visit Report Normal [facility] .Auto Diffon 01-17-2025 Basophil, Absolute 0.0 10 3/mcL Normal 0.0-0.3 [facility] Comment on above: Performed By: #### A BSGEL, ANEU, CMP, APTT, MDW, ADIFF, PRO, GFR, CBC, ABOGEL #### [address] [address] Basophils/100 WBC (Bld) 0.7 % Normal 0.0-2.5 [facility] Comment on above: Performed By: #### A BSGEL, ANEU, CMP, APTT, MDW, ADIFF, PRO, GFR, CBC, ABOGEL #### [address] [address] Eosinophil, Absolute 0.2 10 3/mcL Normal 0.0-0.7 [facility] Comment on above: Performed By: #### A BSGEL, ANEU, CMP, APTT, MDW, ADIFF, PRO, GFR, CBC, ABOGEL #### [address] [address] Eosinophils/100 WBC (Bld) 4.1 % Normal 0.0-6.0 [facility] Comment on above: Performed By: #### A BSGEL, ANEU, CMP, APTT, MDW, ADIFF, PRO, GFR, CBC, ABOGEL #### [address] [address] Lymphocyte, Absolute 1.1 10 3/mcL Normal 0.9-4.3 [facility] Comment on above: Performed By: #### A BSGEL, ANEU, CMP, APTT, MDW, ADIFF, PRO, GFR, CBC, ABOGEL #### [address] [address] Lymphocytes/100 WBC (Bld) 18.2 % Low 20.0-40.0 [facility] Comment on above: Performed By: #### A BSGEL, ANEU, CMP, APTT, MDW, ADIFF, PRO, GFR, CBC, ABOGEL #### [place] [address] [place] [address] Monocyte, Absolute 0.7 10 3/mcL Normal 0.1-1.4 [facility] Comment on above: Performed By: #### A BSGEL, ANEU, CMP, APTT, MDW, ADIFF, PRO, GFR, CBC, ABOGEL #### [address] [address] Monocytes/100 WBC (Bld) 11.5 % Normal 2.0-13.0 [facility] Comment on above: Performed By: #### A BSGEL, ANEU, CMP, APTT, MDW, ADIFF, PRO, GFR, CBC, ABOGEL #### [address] [address] Neutrophils/100 WBC (Bld) 65.5 % Normal 50.0-75.0 [facility] Comment on above: Performed By: #### A BSGEL, ANEU, CMP, APTT, MDW, ADIFF, PRO, GFR, CBC, ABOGEL #### [address] [address] .GFRon 01-17-2025 Estimated Glomerular Filtration Rate 74 ml/min/1.73sqm Normal [facility] Comment on above: Result Comment: [...] MDW, ADIFF, PRO, GFR, CBC, ABOGEL #### [address] [address] .MDWon 01-17-2025 Monocyte Distribution Width 19.35 Normal 0.00-20.00 [facility] Comment on above: Result Comment: For ED adult patients suspected of sepsis, MDW<=20.0 does not rule out sepsis or risk of sepsis Performed By: #### A BSGEL, ANEU, CMP, APTT, MDW, ADIFF, PRO, GFR, CBC, ABOGEL #### [address] [address] .NEUABSon 01-17-2025 Neutrophil, Absolute 3.9 10 3/mcL Normal 2.3-8.1 [facility] Comment on above: Performed By: #### A BSGEL, ANEU, CMP, APTT, MDW, ADIFF, PRO, GFR, CBC, ABOGEL #### [address] [address] ABO/Rh (Gel)on 01-17-2025 ABO/Rh Interp Positive Invalid Interpretation Code [facility] Comment on above: Performed By: #### A BSGEL, ANEU, CMP, APTT, MDW, ADIFF, PRO, GFR, CBC, ABOGEL #### [address] [address] ABS (Gel)on 01-17-2025 ABSC Interp (Gel) Negative Normal [facility] Comment on above: Performed By: #### A BSGEL, ANEU, CMP, APTT, MDW, ADIFF, PRO, GFR, CBC, ABOGEL #### [address] [address] APTTon 01-17-2025 aPTT Coag (Bld) [Time] 39.3 s High 25.0-35.0 [facility] Comment on above: Result Comment: For Heparin anticoagulation therapy, the recommended therapeutic range is: 54-77 seconds (APTT Correlation with Anti-Xa therapeutic range of 0.3-0.7 units/ml). PLEASE REFERENCE THE PHARMACY PROTOCOL FOR DOSING. Performed By: #### A BSGEL, ANEU, CMP, APTT, MDW, ADIFF, PRO, GFR, CBC, ABOGEL #### [address] [address] CBCon 01-17-2025 Erythrocyte distribution width (RBC) [Ratio] 15.3 % Normal 11.5-15.5 [facility] Comment on above: Performed By: #### A BSGEL, ANEU, CMP, APTT, MDW, ADIFF, PRO, GFR, CBC, ABOGEL #### [place] [id number] Hematocrit (Bld) [Volume fraction] 39.3 % Normal 34.0-46.0 [facility] Comment on above: Performed By: #### A BSGEL, ANEU, CMP, APTT, MDW, ADIFF, PRO, GFR, CBC, ABOGEL #### [place] [id number] Hgb 13.6 G/dL Normal 12.0-16.0 [facility] Comment on above: Performed By: #### A BSGEL, ANEU, CMP, APTT, MDW, ADIFF, PRO, GFR, CBC, ABOGEL #### [place] [id number] MCH (RBC) [Entitic mass] 31.9 pg Normal 27.0-33.0 [facility] Comment on above: Performed By: #### A BSGEL, ANEU, CMP, APTT, MDW, ADIFF, PRO, GFR, CBC, ABOGEL #### [place] [id number] MCHC 34.5 G/dL Normal 32.0-36.0 [facility] Comment on above: Performed By: #### A BSGEL, ANEU, CMP, APTT, MDW, ADIFF, PRO, GFR, CBC, ABOGEL #### [place] [id number] MCV (RBC) [Entitic vol] 92.5 fL Normal 80.0-99.0 [facility] Comment on above: Performed By: #### A BSGEL, ANEU, CMP, APTT, MDW, ADIFF, PRO, GFR, CBC, ABOGEL #### [place] [id number] Platelet 51 10 3/mcL Low 150-450 [facility] Comment on above: Performed By: #### A BSGEL, ANEU, CMP, APTT, MDW, ADIFF, PRO, GFR, CBC, ABOGEL #### [address] [address] Platelet mean volume (Bld) [Entitic vol] 9.8 fL Normal 6.6-10.5 [facility] Comment on above: Performed By: #### A BSGEL, ANEU, CMP, APTT, MDW, ADIFF, PRO, GFR, CBC, ABOGEL #### [place] [id number] RBC 4.24 10 6/mcL Normal 4.10-5.30 [facility] Comment on above: Performed By: #### A BSGEL, ANEU, CMP, APTT, MDW, ADIFF, PRO, GFR, CBC, ABOGEL #### [place] [address] WBC 5.9 10 3/mcL Normal 4.5-10.8 [facility] Comment on above: Performed By: #### A BSGEL, ANEU, CMP, APTT, MDW, ADIFF, PRO, GFR, CBC, ABOGEL #### [address] [address] CMPon 01-17-2025 Albumin Level 2.9 G/dL Low 3.2-4.8 [facility] Comment on above: Performed By: #### A BSGEL, ANEU, CMP, APTT, MDW, ADIFF, PRO, GFR, CBC, ABOGEL #### [place] [phone] Albumin/Globulin [Mass ratio] 0.7 {ratio} Low 0.9-1.6 [facility] Comment on above: Performed By: #### A BSGEL, ANEU, CMP, APTT, MDW, ADIFF, PRO, GFR, CBC, ABOGEL #### [place] [phone] ALP [Catalytic activity/Vol] 148 U/L High 38-126 [facility] Comment on above: Performed By: #### A BSGEL, ANEU, CMP, APTT, MDW, ADIFF, PRO, GFR, CBC, ABOGEL #### [address] [address] ALT [Catalytic activity/Vol] 118 U/L High 10-49 [facility] Comment on above: Performed By: #### A BSGEL, ANEU, CMP, APTT, MDW, ADIFF, PRO, GFR, CBC, ABOGEL #### [address] [address] AST [Catalytic activity/Vol] 164 U/L High 8-34 [facility] Comment on above: Performed By: #### A BSGEL, ANEU, CMP, APTT, MDW, ADIFF, PRO, GFR, CBC, ABOGEL #### [address] [address] Bili Total 1.80 mg/dL High 0.20-1.20 [facility] Comment on above: Result Comment: Use of this assay is not recommended for patients undergoing treatment with eltrombopag due to the potential for falsely elevated results. Performed By: #### A BSGEL, ANEU, CMP, APTT, MDW, ADIFF, PRO, GFR, CBC, ABOGEL #### [address] [address] BUN/Creatinine Ratio 9.7 ratio Low 10.0-22.0 [facility] Comment on above: Performed By: #### A BSGEL, ANEU, CMP, APTT, MDW, ADIFF, PRO, GFR, CBC, ABOGEL #### [address] [address] Calcium [Mass/Vol] 9.4 mg/dL Normal 8.7-10.4 [facility] Comment on above: Performed By: #### A BSGEL, ANEU, CMP, APTT, MDW, ADIFF, PRO, GFR, CBC, ABOGEL #### [address] [address] Chloride [Moles/Vol] 106 mmol/L Normal 98-110 [facility] Comment on above: Performed By: #### A BSGEL, ANEU, CMP, APTT, MDW, ADIFF, PRO, GFR, CBC, ABOGEL #### [address] [address] CO2 [Moles/Vol] 25 mmol/L Normal 22-32 [facility] Comment on above: Performed By: #### A BSGEL, ANEU, CMP, APTT, MDW, ADIFF, PRO, GFR, CBC, ABOGEL #### [address] [address] Creatinine [Mass/Vol] 0.93 mg/dL Normal 0.50-1.20 [facility] Comment on above: Result Comment: Test ing performed on Melboss analyzer using enzymatic creatinine methodology. Performed By: #### A BSGEL, ANEU, CMP, APTT, MDW, ADIFF, PRO, GFR, CBC, ABOGEL #### [place] [id number] Electrolyte Balance 7.0 mEq/L Normal 4.0-15.0 [facility] Comment on above: Performed By: #### A BSGEL, ANEU, CMP, APTT, MDW, ADIFF, PRO, GFR, CBC, ABOGEL #### [address] [address] Globulin 4.2 G/dL Normal 2.5-4.2 [facility] Comment on above: Performed By: #### A BSGEL, ANEU, CMP, APTT, MDW, ADIFF, PRO, GFR, CBC, ABOGEL #### [address] [address] Glucose [Mass/Vol] 94 mg/dL Normal 70-110 [facility] Comment on above: Performed By: #### A BSGEL, ANEU, CMP, APTT, MDW, ADIFF, PRO, GFR, CBC, ABOGEL #### [address] [address] Potassium [Moles/Vol] 4.4 mmol/L Normal 3.5-5.0 [facility] Comment on above: Performed By: #### A BSGEL, ANEU, CMP, APTT, MDW, ADIFF, PRO, GFR, CBC, ABOGEL #### [address] [address] Sodium [Moles/Vol] 138 mmol/L Normal 136-145 [facility] Comment on above: Performed By: #### A BSGEL, ANEU, CMP, APTT, MDW, ADIFF, PRO, GFR, CBC, ABOGEL #### [address] [address] Total Protein 7.1 G/dL Normal 5.7-8.2 [facility] Comment on above: Performed By: #### A BSGEL, ANEU, CMP, APTT, MDW, ADIFF, PRO, GFR, CBC, ABOGEL #### [address] [address] Urea nitrogen [Mass/Vol] 9.0 mg/dL Normal 8.0-22.0 [facility] Comment on above: Performed By: #### A BSGEL, ANEU, CMP, APTT, MDW, ADIFF, PRO, GFR, CBC, ABOGEL #### [address] [address] LABORATORYOrdered By: Israel Narvaez on 01-17-2025 ABO and Rh group Nom (Bld) Blood group A Rh(D) positive Invalid Interpretation Code AH BB Auto SS Blood group antibody screen Ql Negative ABSC (01/17/25 3:04 PM) Normal AH BB Auto SS LABORATORYOrdered By: SYSTEM SYSTEM on 01-17-2025 Albumin BCP dye [Mass/Vol] 2.9 G/dL Low 3.2 - 4.8 G/dL AH ADM SS Albumin/Globulin [Mass ratio] 0.7 {ratio} [...] 0.7 % Normal 0.0 - 2.5 % Workflow SS Bilirubin [Mass/Vol] 1.80 mg/dL High 0.20 - 1.20 mg/dL ADM SS Comment on above: Interpretive Data: U se of this assay is not recommended for patients undergoing treatment with eltrombopag due to the potential for falsely elevated results. Calcium [Mass/Vol] 9.4 mg/dL Normal 8.7 - 10. 4 mg/dL ADM SS Chloride [Moles/Vol] 106 mmol/L Normal 98 - 110 mEq/L ADM SS CO2 [Moles/Vol] 25 mmol/L Normal 22 - 32 mEq/L ADM SS Creatinine [Mass/Vol] 0.93 mg/dL Normal 0.50 - 1.20 mg/dL ADM SS Comment on above: Interpretive Data: T esting performed on Melboss analyzer using enzymatic creatinine methodology. Electrolyte Balance [...] Filtration Rate 74 ml/min/1.73sqm Invalid Interpretation Code ADM SS Comment on above: Interpretive Data: [...] 4.2 G/dL Normal 2.5 - 4.2 G/dL ADM SS Glucose [Mass/Vol] 94 mg/dL Normal 70 - 110 mg/dL ADM SS Hematocrit (Bld) [Volume fraction] 39.3 [...] 34.5 G/dL Normal 32.0 - 36.0 G/dL Workflow SS MCV (RBC) [Entitic vol] 92.5 [...] 9.8 fL Normal 6.6 - 10.5 fL Workflow SS Platelets (Bld) [#/Vol] 51 103/mcL Low 150 - 450 10^3/mcL AH Workflow SS Potassium [Moles/Vol] 4.4 mmol/L Normal 3.5 - 5.0 mEq/L ADM SS Protein [Mass/Vol] 7.1 G/dL Normal 5.7 - 8.2 G/dL ADM SS PT Coag (PPP) [Time] 17.9 s High 9.0 - 1 4.4 seconds [facility] Comment on above: Interpretive Data: E ffective 04/09/08, Protime results may be affected by some antibiotics (i.e. Ciprofloxacin, Azithromycin, Bactrim) which may potentiate the action of oral anticoagulants, with further increases in Protime/INR. PT International Ratio 1.6 ratio Invalid Interpretation Code [facility] Comment on above: Interpretive Data: [place] [employer] (CHEST, 1991, 102:312S-25S) [...] Coag (PPP) [Relative time] 1.6 {INR} Normal [facility] Comment on above: Result Comment: [employer] (CHEST, 1991, 102:312S-25S) recommended therapeutic range for oral anticoagulant therapy is: LOW RISK: Prophylaxis of venous thrombosis INR: 2.0-3.0 Treatment of pulmonary embolism 2.0-3.0 Prevention of systemic embolism 2.0-3.0 HIGH RISK: Mechanical prosthetic valves 2.5-3.5 Performed By: #### A BSGEL, ANEU, CMP, APTT, MDW, ADIFF, PRO, GFR, CBC, ABOGEL #### [place] [address] PT Coag (PPP) [Time] 17.9 s High 9.0-14.4 [facility] Comment on above: Result Comment: Effe ctive 04/09/08, Protime results may be affected by some antibiotics (i.e. Ciprofloxacin, Azithromycin, Bactrim) which may potentiate the action of oral anticoagulants, with further increases in Protime/INR. Performed By: #### A BSGEL, ANEU, CMP, APTT, MDW, ADIFF, PRO, GFR, CBC, ABOGEL #### [place] [address] [place] [address] XR CHEST 1 VIEWon 01-17-2025 XR CHEST [...] 01/17/2025 3:37:07 PM Ordering Provider: ARIANNE Lagos [facility] Breast - bilateral Viewso n 12-19-2024 [place] [address] Radiology PATIENT NAME: Carolina Hightower MR#: [id number] PROCEDURE DATE: 12/18/2024 ROOM#: ORDERING PHYS: Self [...] the next mammogram. Location of Performed Examination [facility] [address] [place] [address] THIS IS AN ELECTRONICALLY VERIFIED REPORT 12/19/2024 10:18 AM: MD Oscar Purdy MD dm TD: 12/19/2024 JOB #: [id number] Radiology Page 1 of 1 COPY [facility] MG Breast - bilateral ViewsO rdered By: Oscar Real on 12-19-2024 [facility] Work Phone: MG Breast - bilateral Viewso n 12-18-2024 Radiology Study observation (narrative) [facility] Body Fluid Cultureon 025 Bacteria identified Cx Nom (Body fld) No Growth - Preliminary No growth. [facility] Microscopic observation Gram stain Nom (Unsp spec) Rare WBC'S. No organisms seen. [facility] CBCon 12-13-2024 Basophils (Bld) [#/Vol] 0.0 10*3/uL 0.0 - 0.1 10*3/uL [facility] Basophils/100 WBC (Bld) 0.7 % 0.0 - 1.0 % [facility] Differential cell count method Nom (Bld) Auto [facility] Eosinophils (Bld) [#/Vol] 0.2 10*3/uL 0.0 - 0.5 10*3/uL [facility] Eosinophils/100 WBC (Bld) 4.4 % 0.3 - 5.0 % [facility] Erythrocyte distribution width (RBC) [Ratio] 17.4 % 10.7 - 18.7 % [facility] Hematocrit (Bld) [Volume fraction] 35.3 % 33.0 - 51.0 % [facility] Hemoglobin (Bld) [Mass/Vol] 12.2 g/dL 12.0 - 16.0 g/dL [facility] Interpretation and review of laboratory results Abnormal [facility] Lymphocytes (Bld) [#/Vol] 1.2 10*3/uL 1.1 - 5.0 10*3/uL [facility] Lymphocytes/100 WBC (Bld) 26.6 % 24.0 - 44.0 % [facility] MCH (RBC) [Entitic mass] 32.5 pg 26.0 - 34.0 pg [facility] MCHC (RBC) [Mass/Vol] 34.5 g/dL 32.0 - 36.0 g/dL [facility] MCV (RBC) [Entitic vol] 94.1 fL 80.0 - 100.0 fL [facility] Monocytes (Bld) [#/Vol] 0.6 10*3/uL 0.0 - 1.4 10*3/uL [facility] Monocytes/100 WBC (Bld) 13.8 % High 2.1 - 13.3 % [facility] Neutrophils (Bld) [#/Vol] 2.4 10*3/uL 1.5 - 8.5 10*3/uL [facility] Neutrophils/100 WBC (Bld) 54.5 % 35.0 - 66.0 % [facility] Platelet mean volume (Bld) [Entitic vol] 9.1 fL 6.5 - 10.0 fL [facility] Platelets (Bld) [#/Vol] 52 10*3/uL Low 150 - 450 10*3/uL [facility] RBC (Bld) [#/Vol] 3.75 10*6/uL Low 4.00 - 5.2 0 10*6/uL [facility] WBC (Bld) [#/Vol] 4.3 10*3/uL Low 4.5 - 11.0 10*3/uL [facility] CBC w/ Differentialon 2024 Basophil Abs. 0.0 10*3/uL Normal 0.0-0.1 [facility] Comment on above: Performed By: #### L [id number] ####[place] [id number] Basophils/100 WBC (Bld) 0.7 % Normal 0.0-1.0 [facility] Comment on above: Performed By: #### L [id number] ####[place] [id number] Differential type Auto Normal [facility] Comment on above: Performed By: #### L [id number] ####[place] [address] Eosinophils (Bld) [#/Vol] 0.2 10*3/uL Normal 0.0-0.5 [facility] Comment on above: Performed By: #### L [id number] ####[place] [address] Eosinophils/100 WBC (Bld) 4.4 % Normal 0.3-5.0 [facility] Comment on above: Performed By: #### L [id number] ####[place] [address] Erythrocyte distribution width (RBC) [Ratio] 17.4 % Normal 10.7-18.7 [facility] Comment on above: Performed By: #### L [id number] ####[place] [address] Hematocrit (Bld) [Volume fraction] 35.3 % Normal 33.0-51.0 [facility] Comment on above: Performed By: #### L VA2671 ####[place] [address] Hemoglobin (Bld) [Mass/Vol] 12.2 g/dL Normal 12.0-16.0 [facility] Comment on above: Performed By: #### L OO2502 ####[place] [address] Lymphocytes (Bld) [#/Vol] 1.2 10*3/uL Normal 1.1-5.0 [facility] Comment on above: Performed By: #### L [id number] ####BABATUNDE [address] [address] Lymphocytes/100 WBC (Bld) 26.6 % Normal 24.0-44.0 [facility] Comment on above: Performed By: #### L [id number] ####[place]AT[place] [id number] MCH (RBC) [Entitic mass] 32.5 pg Normal 26.0-34.0 [facility] Comment on above: Performed By: #### L [id number] ####BABATUNDE [address] [address] MCHC (RBC) [Mass/Vol] 34.5 g/dL Normal 32.0-36.0 [facility] Comment on above: Performed By: #### L ZR4881 ####[place] [address] MCV (RBC) [Entitic vol] 94.1 fL Normal 80.0-100.0 [facility] Comment on above: Performed By: #### L AL3022 ####BABATUNDE [address] [address] Monocytes (Bld) [#/Vol] 0.6 10*3/uL Normal 0.0-1.4 [facility] Comment on above: Performed By: #### L KY3941 ####BABATUNDE [address] [address] Monocytes/100 WBC (Bld) 13.8 % High 2.1-13.3 [facility] Comment on above: Performed By: #### L RP2722 ####[place]AT[place] [id number] Neutrophils, Abs. 2.4 10*3/uL Normal 1.5-8.5 [facility] Comment on above: Performed By: #### L HO2295 ####BABATUNDE [address] Neutrophils/100 WBC (Bld) 54.5 % Normal 35.0-66.0 [facility] Comment on above: Performed By: #### L AD8494 ####[place] [address] Platelet Cnt 52 10*3/uL Low 150-450 [facility] Comment on above: Performed By: #### L JP6604 ####[place] [address] Platelet mean volume (Bld) [Entitic vol] 9.1 fL Normal 6.5-10.0 [facility] Comment on above: Performed By: #### L [id number] ####[place] [address] RBC (Bld) [#/Vol] 3.75 10*6/uL Low 4.00-5.20 [facility] Comment on above: Performed By: #### L WK3054 ####[place] [address] WBC (Bld) [#/Vol] 4.3 10*3/uL Low 4.5-11.0 [facility] Comment on above: Performed By: #### L ZP7334 ####[place] [address] COMPREHENSIVE METABOLIC PANE [place] 12-13-2024 Albumin [Mass/Vol] 2.8 g/dL Low 3.2-5.0 [facility] Comment on above: Performed By: #### L NI2589 ####[place] [address] Albumin/Globulin [Mass ratio] 0.8 {ratio} Normal [facility] Comment on above: Performed By: #### L KG0021 ####[place] [id number] ALP [Catalytic activity/Vol] 114 U/L Normal 42-121 [facility] Comment on above: Performed By: #### L GE1790 ####[place] [id number] ALT [Catalytic activity/Vol] 74 U/L High 10-60 [facility] Comment on above: Performed By: #### L ML9668 ####[place] [address] Anion gap [Moles/Vol] 8 mmol/L Normal [facility] Comment on above: Performed By: #### L NO7777 ####[place] [address] AST [Catalytic activity/Vol] 137 U/L High 10-42 [facility] Comment on above: Performed By: #### L XB1671 ####[place] [address] B/C 10 Normal 10-20 [facility] Comment on above: Performed By: #### L DE0842 ####[place] [address] Bilirubin.direct [Mass/Vol] 1.5 mg/dL High 0.2-1.0 [facility] Comment on above: Performed By: #### L FR8934 ####[place] [address] Calcium [Mass/Vol] 8.8 mg/dL Normal 8.5-10.5 [facility] Comment on above: Performed By: #### L SA4523 ####[place] [address] Chloride [Moles/Vol] 110 mmol/L Normal 101-111 [facility] Comment on above: Performed By: #### L VD4882 ####[place] [address] CO2 [Moles/Vol] 23 mmol/L Normal 21-31 [facility] Comment on above: Performed By: #### L KY1028 ####[place] [address] Creatinine [Mass/Vol] 0.9 mg/dL Normal 0.4-1.0 [facility] Comment on above: Performed By: #### L [id number] ####[place] [id number] GFR/1.73 sq M.predicted MDRD (S/P/Bld) [Vol rate/Area] 66 mL/min/{1.73_m2} Normal [facility] Comment on above: Result Comment: *The estimated Glomerular Filtration Rate(EGFR) may not be accurate for children under the age of 18 yrs. To estimate the GFR for -Americans multiply the result provided by 1.21.Stage 1 90 mL/min or greaterStage 2 60-89 mL/minStage 3 30-59 mL/minStage 4 15-29 mL/minStage 5 14 mL/min or less Performed By: #### L WQ4545 ####[place] [address] Glucose [Mass/Vol] 94 mg/dL Normal 70-110 [facility] Comment on above: Performed By: #### L OA5498 ####[place] [address] Osmolality [Osmolality] 280 mosm/kg Normal 266-309 [facility] Comment on above: Performed By: #### L YO5582 ####[place] [address] Potassium [Moles/Vol] 3.6 mmol/L Normal 3.6-5.0 [facility] Comment on above: Performed By: #### L KR5597 ####[place] [address] Protein [Mass/Vol] 6.3 g/dL Normal 6.1-7.8 [facility] Comment on above: Performed By: #### L EY3903 ####[place] [address] Sodium [Moles/Vol] 141 mmol/L Normal 135-145 [facility] Comment on above: Performed By: #### L SX1900 ####[place] [address] Urea nitrogen [Mass/Vol] 9 mg/dL Normal 2-32 [facility] Comment on above: Performed By: #### L ST3410 ####[place] [id number] Comprehensive Metabolic Pane merritt 12-13-2024 Albumin [Mass/Vol] 2.8 g/dL Low 3.2 - 5.0 g/dL [facility] Albumin/Globulin [Mass ratio] 0.8 {ratio} [facility] ALP [Catalytic activity/Vol] 114 U/L 42 - 121 [iU]/L [facility] ALT [Catalytic activity/Vol] 74 U/L High 10 - 60 [iU]/L [facility] Anion gap [Moles/Vol] 8 mmol/L Kin [facility] AST [Catalytic activity/Vol] 137 U/L High 10 - 42 [iU]/L [facility] Bilirubin [Mass/Vol] 1.5 mg/dL High 0.2 - 1 .0 mg/dL [facility] Calcium [Mass/Vol] 8.8 mg/dL 8.5 - 10. 5 mg/dL [facility] Chloride [Moles/Vol] 110 mmol/L 101 - 1 11 mmol/L [facility] CO2 [Moles/Vol] 23 mmol/L 21 - 31 mmol/L [facility] Creatinine [Mass/Vol] 0.9 mg/dL 0.4 - 1.0 mg/dL [facility] GFR/1.73 sq M.predicted MDRD (S/P/Bld) [Vol rate/Area] 66 mL/min/{1.73_m2} [facility] Comment on above: *The estimated Glome rular [...] [Mass/Vol] 94 mg/dL 70 - 110 mg/dL [facility] Interpretation and review of laboratory results Abnormal [facility] Osmolality Calc [Osmolality] 280 266 - 309 [facility] Potassium [Moles/Vol] 3.6 mmol/L 3.6 - 5.0 mmol/L [facility] Protein [Mass/Vol] 6.3 g/dL 6.1 - 7.8 g/dL Ki [facility] Sodium [Moles/Vol] 141 mmol/L 135 - 145 mmol/L [facility] Urea nitrogen [Mass/Vol] 9 mg/dL 2 - 32 mg/dL [facility] Urea nitrogen/Creatinine [Mass ratio] 10 mg/mg 10 - 20 [facility] Albumin, Body Fluidon 2024 Albumin (Body fld) [Mass/Vol] 493 mg/dL [facility] Comment on above: INTERPRETIVE INFORMA TION: Albumin, Body Fluid A reference interval has not been established for body fluid specimens. This test was developed and its performance characteristics determined by [facility]. It has not been cleared or approved by the U.S. Food and Drug Administration. This test was performed in a CLIA-certified laboratory and is intended for clinical purposes. Performed By: [facility] [address] [place] [address] Mold Builder: Elvin Diaz MD, PhD CLIA Number: [id number] Specimen source Nom (Unsp spec) asc [facility] Albumin, Body Fluid 493 mg/dL Normal [facility] Comment on above: Result Comment: INTE RPRETIVE INFORMATION: Albumin, Body FluidA reference interval has not been established for body fluidspecimens.This test was developed and its performance characteristicsdetermined by [facility]. It has not been cleared orapproved by the U.S. Food and Drug Administration. This test wasperformed in a CLIA-certified laboratory and is intended forclinical purposes.Performed By: [facility] [place], [place] [address]Vfgowpwkcu Director: Elvin Diaz MD, PhDCLIA Number: [id number] Performed By: #### L FY3198, ADJ5001, TGZ9974, YEN8164, OQZ1106 ####[facility] [address] [place] [address] Source: asc Normal [facility] Comment on above: Performed By: #### L YW5122, UYW1837, BYZ4820, OPP9638, VRE0266 ####[facility] [address] [place] [address] Body Fluid Cell Counton 11-24 Appearance (Body fld) Slt Hazy Kin [facility] Basophils Manual cnt (Body fld) [#/Vol] 0 % [facility] Color (Body fld) Yellow [facility] Comment 0 [facility] Eosinophils Manual cnt (Body fld) [#/Vol] 0 % [facility] Lymphocytes Manual cnt (Body fld) [#/Vol] 54 % [facility] Macrophages/100 WBC Manual cnt (Body fld) 41 % [facility] Mesothelial cells LM Ql (Body fld) 3 % [facility] Neutrophils Manual cnt (Body fld) [#/Vol] 2 % [facility] Nucleated cells (Body fld) [#/Vol] 172 uL [facility] Comment on above: RESULTS OF COUNT MAY BE INACCURATE IF SPECIMEN IS PARTIALLY CLOTTED OR EXHIBIT CELL CLUMPING. Observation interpretation (Unsp spec) [Interp] see below [facility] Comment on above: Reference ranges & o ther method performance specifications have not been established for this body fluid type. The test result must be integrated into the clinical context for interpretation. Pathologist review Eliezer (Unsp spec) [Interp] see below [facility] Comment on above: REVIEWED BY DR. SHAUNA KILLIAN: Agree with differential. 12/12/2024 Plasma cells (Body fld) [#/Vol] 0 % [facility] RBC Auto (Body fld) [#/Vol] 1,023 uL [facility] Specimen source Nom (Body fld) Ascites [facility] Specimen volume (Body fld) 60.0 [facility] Tube number Nom (Body fld) [ID] Syringe [facility] CBCon 12-12-2024 Basophils (Bld) [#/Vol] 0.0 10*3/uL 0.0 - 0.1 10*3/uL [facility] Basophils/100 WBC (Bld) 0.7 % 0.0 - 1.0 % [facility] Differential cell count method Nom (Bld) Auto [facility] Eosinophils (Bld) [#/Vol] 0.3 10*3/uL 0.0 - 0.5 10*3/uL [facility] Eosinophils/100 WBC (Bld) 5.2 % High 0.3 - 5.0 % [facility] Erythrocyte distribution width (RBC) [Ratio] 17.3 % 10.7 - 18.7 % [facility] Hematocrit (Bld) [Volume fraction] 36.4 % 33.0 - 51.0 % [facility] Hemoglobin (Bld) [Mass/Vol] 12.6 g/dL 12.0 - 16.0 g/dL [facility] Interpretation and review of laboratory results Abnormal [facility] Lymphocytes (Bld) [#/Vol] 1.3 10*3/uL 1.1 - 5.0 10*3/uL [facility] Lymphocytes/100 WBC (Bld) 25.5 % 24.0 - 44.0 % [facility] MCH (RBC) [Entitic mass] 32.4 pg 26.0 - 34.0 pg [facility] MCHC (RBC) [Mass/Vol] 34.5 g/dL 32.0 - 36.0 g/dL [facility] MCV (RBC) [Entitic vol] 93.8 fL 80.0 - 100.0 fL [facility] Monocytes (Bld) [#/Vol] 0.6 10*3/uL 0.0 - 1.4 10*3/uL [facility] Monocytes/100 WBC (Bld) 11.5 % 2.1 - 13.3 % [facility] Neutrophils (Bld) [#/Vol] 2.8 10*3/uL 1.5 - 8.5 10*3/uL [facility] Neutrophils/100 WBC (Bld) 57.1 % 35.0 - 66.0 % [facility] Platelet mean volume (Bld) [Entitic vol] 9.5 fL 6.5 - 10.0 fL [facility] Platelets (Bld) [#/Vol] 57 10*3/uL Low 150 - 450 10*3/uL [facility] RBC (Bld) [#/Vol] 3.88 10*6/uL Low 4.00 - 5.2 0 10*6/uL [facility] WBC (Bld) [#/Vol] 4.9 10*3/uL 4.5 - 11.0 10*3/uL [facility] CBC w/ Differentialon 2024 Basophil Abs. 0.0 10*3/uL Normal 0.0-0.1 [facility] Comment on above: Performed By: #### L [id number] ####[place] [address] Basophils/100 WBC (Bld) 0.7 % Normal 0.0-1.0 [facility] Comment on above: Performed By: #### L TY2825 ####[place] [address] Differential type Auto Normal [facility] Comment on above: Performed By: #### L NY2100 ####[place] [address] Eosinophils (Bld) [#/Vol] 0.3 10*3/uL Normal 0.0-0.5 [facility] Comment on above: Performed By: #### L NX7889 ####[place] [address] Eosinophils/100 WBC (Bld) 5.2 % High 0.3-5.0 [facility] Comment on above: Performed By: #### L BY9518 ####[place] [address] Erythrocyte distribution width (RBC) [Ratio] 17.3 % Normal 10.7-18.7 [facility] Comment on above: Performed By: #### L HM0941 ####[place] [address] Hematocrit (Bld) [Volume fraction] 36.4 % Normal 33.0-51.0 [facility] Comment on above: Performed By: #### L ES2785 ####[place] [address] Hemoglobin (Bld) [Mass/Vol] 12.6 g/dL Normal 12.0-16.0 [facility] Comment on above: Performed By: #### L WG1439 ####[place] [address] Lymphocytes (Bld) [#/Vol] 1.3 10*3/uL Normal 1.1-5.0 [facility] Comment on above: Performed By: #### L GP4810 ####[place] [address] Lymphocytes/100 WBC (Bld) 25.5 % Normal 24.0-44.0 [facility] Comment on above: Performed By: #### L MJ6570 ####[place] [address] MCH (RBC) [Entitic mass] 32.4 pg Normal 26.0-34.0 [facility] Comment on above: Performed By: #### L ZE4736 ####[place] [address] MCHC (RBC) [Mass/Vol] 34.5 g/dL Normal 32.0-36.0 [facility] Comment on above: Performed By: #### L VF5420 ####[place] [address] MCV (RBC) [Entitic vol] 93.8 fL Normal 80.0-100.0 [facility] Comment on above: Performed By: #### L OM8219 ####[place] [address] Monocytes (Bld) [#/Vol] 0.6 10*3/uL Normal 0.0-1.4 [facility] Comment on above: Performed By: #### L FS7973 ####[place] [address] Monocytes/100 WBC (Bld) 11.5 % Normal 2.1-13.3 [facility] Comment on above: Performed By: #### L HU6947 ####[place]uv[place] [id number] [place] [address] Neutrophils, Abs. 2.8 10*3/uL Normal 1.5-8.5 [facility] Comment on above: Performed By: #### L DC5041 ####BABATUNDE [address] [address] Neutrophils/100 WBC (Bld) 57.1 % Normal 35.0-66.0 [facility] Comment on above: Performed By: #### L RE0746 ####BABATUNDE [address] [address] Platelet Cnt 57 10*3/uL Low 150-450 [facility] Comment on above: Performed By: #### L LV9574 ####[place] [address] Platelet mean volume (Bld) [Entitic vol] 9.5 fL Normal 6.5-10.0 [facility] Comment on above: Performed By: #### L OI1200 ####[place] [address] RBC (Bld) [#/Vol] 3.88 10*6/uL Low 4.00-5.20 [facility] Comment on above: Performed By: #### L NC0414 ####BABATUNDE [address] [address] WBC (Bld) [#/Vol] 4.9 10*3/uL Normal 4.5-11.0 [facility] Comment on above: Performed By: #### L FR5537 ####[place] [address] COMPREHENSIVE METABOLIC PANE [place] 12-12-2024 Albumin [Mass/Vol] 2.9 g/dL Low 3.2-5.0 [facility] Comment on above: Performed By: #### L OQ0683 ####[place] [address] Albumin/Globulin [Mass ratio] 0.9 {ratio} Normal [facility] Comment on above: Performed By: #### L LW5084 ####[place] [address] ALP [Catalytic activity/Vol] 124 U/L High 42-121 [facility] Comment on above: Performed By: #### L OK6534 ####[place] [address] ALT [Catalytic activity/Vol] 72 U/L High 10-60 [facility] Comment on above: Performed By: #### L UO0497 ####[place] [address] Anion gap [Moles/Vol] 6 mmol/L Normal Kin [facility] Comment on above: Performed By: #### L QK2480 ####[place] [address] AST [Catalytic activity/Vol] 130 U/L High 10-42 [facility] Comment on above: Performed By: #### L PO2468 ####[place] [address] B/C 9 Low 10-20 [facility] Comment on above: Performed By: #### L WF0121 ####[place] [address] Bilirubin.direct [Mass/Vol] 1.8 mg/dL High 0.2-1.0 [facility] Comment on above: Performed By: #### L PX6187 ####[place] [address] Calcium [Mass/Vol] 8.4 mg/dL Low 8.5-10.5 [facility] Comment on above: Performed By: #### L PL5384 ####[place] [address] Chloride [Moles/Vol] 109 mmol/L Normal 101-111 [facility] Comment on above: Performed By: #### L WY9242 ####[place] [address] CO2 [Moles/Vol] 22 mmol/L Normal 21-31 [facility] Comment on above: Performed By: #### L GK1451 ####[place] [address] Creatinine [Mass/Vol] 1.0 mg/dL Normal 0.4-1.0 [facility] Comment on above: Performed By: #### L XJ7746 ####[place] [address] GFR/1.73 sq M.predicted MDRD (S/P/Bld) [Vol rate/Area] 58 mL/min/{1.73_m2} Normal [facility] Comment on above: Result Comment: *The estimated Glomerular Filtration Rate(EGFR) may not be accurate for children under the age of 18 yrs. To estimate the GFR for -Americans multiply the result provided by 1.21.Stage 1 90 mL/min or greaterStage 2 60-89 mL/minStage 3 30-59 mL/minStage 4 15-29 mL/minStage 5 14 mL/min or less Performed By: #### L LM0122 ####[place] [address] Glucose [Mass/Vol] 88 mg/dL Normal 70-110 [facility] Comment on above: Performed By: #### L KE8489 ####[place] [address] Osmolality [Osmolality] 272 mosm/kg Normal 266-309 [facility] Comment on above: Performed By: #### L RC7975 ####[place] [address] Potassium [Moles/Vol] 3.9 mmol/L Normal 3.6-5.0 [facility] Comment on above: Performed By: #### L RU9582 ####[place] [address] Protein [Mass/Vol] 6.1 g/dL Normal 6.1-7.8 [facility] Comment on above: Performed By: #### L DJ1479 ####[place] [address] Sodium [Moles/Vol] 137 mmol/L Normal 135-145 [facility] Comment on above: Performed By: #### L VQ9740 ####[facility] [address] [place] [address] Urea nitrogen [Mass/Vol] 9 mg/dL Normal 2-32 [facility] Comment on above: Performed By: #### L PV9341 ####[facility] [address] [place] [id number] Comprehensive Metabolic Pane merritt 12-12-2024 Albumin [Mass/Vol] 2.9 g/dL Low 3.2 - 5.0 g/dL [facility] Albumin/Globulin [Mass ratio] 0.9 {ratio} [facility] ALP [Catalytic activity/Vol] 124 U/L High 42 - 121 [iU]/L [facility] ALT [Catalytic activity/Vol] 72 U/L High 10 - 60 [iU]/L [facility] Anion gap [Moles/Vol] 6 mmol/L [facility] AST [Catalytic activity/Vol] 130 U/L High 10 - 42 [iU]/L [facility] Bilirubin [Mass/Vol] 1.8 mg/dL High 0.2 - 1 .0 mg/dL [facility] Calcium [Mass/Vol] 8.4 mg/dL Low 8.5 - 10. 5 mg/dL [facility] Chloride [Moles/Vol] 109 mmol/L 101 - 1 11 mmol/L [facility] CO2 [Moles/Vol] 22 mmol/L 21 - 31 mmol/L [facility] Creatinine [Mass/Vol] 1.0 mg/dL 0.4 - 1.0 mg/dL [facility] GFR/1.73 sq M.predicted MDRD (S/P/Bld) [Vol rate/Area] 58 mL/min/{1.73_m2} [facility] Comment on above: *The estimated Glome rular [...] [Mass/Vol] 88 mg/dL 70 - 110 mg/dL [facility] Interpretation and review of laboratory results Abnormal [facility] Osmolality Calc [Osmolality] 272 266 - 309 [facility] Potassium [Moles/Vol] 3.9 mmol/L 3.6 - 5.0 mmol/L [facility] Protein [Mass/Vol] 6.1 g/dL 6.1 - 7.8 g/dL [facility] Sodium [Moles/Vol] 137 mmol/L 135 - 145 mmol/L [facility] Urea nitrogen [Mass/Vol] 9 mg/dL 2 - 32 mg/dL [facility] Urea nitrogen/Creatinine [Mass ratio] 9 mg/mg Low 10 - 20 [facility] Cytology, Non Gynon 12-13-19 Cytology report Cyto stain Doc (Unsp spec) SEE BELOW [facility] Comment on above: [place] [address] Department of Cytology CAROLINA HIGHTOWER [phone] COPIES [...] 1 Consist.................fluid Special Stains ........ 1 Other: SHAE TYLER The cellblock total 10% formalin fixation time is 6-72 hours. DIAGNOSIS Peritoneal fluid: Negative for malignant cells Screened By : HUNTER M.D., Pathologist Part B: [id number] x 1, [phone] x 1 Page 1 of 1 [facility] FLUID CELL COUNTon 5 Basophils/100 WBC (Bld) 0 % Normal [facility] Comment on above: Performed By: #### L RT5458, EKP4905, TET0922, DUK1299, YZM4195 ####[facility] [address] [address] Eosinophils/100 WBC (Bld) 0 % Normal [facility] Comment on above: Performed By: #### L WC2237, BFV7056, RYH3417, HGF4382, KQW0370 ####[facility] [address] [address] Lymphocytes/100 WBC (Bld) 54 % Normal [facility] Comment on above: Performed By: #### L FH4563, NRT3761, YZZ2118, IJF1776, ALM8311 ####[facility] [address] [place] [address] MACROPHAGES 41 % Normal [facility] Comment on above: Performed By: #### L BS6222, BWB3385, PNP2796, ZIR0795, DHL2769 ####[facility] [address] [place] [address] MESOTHELIAL 3 % Normal [facility] Comment on above: Performed By: #### L HX4500, ENY6286, JAD8724, ZIY4769, KMR2610 ####[facility] [address] [address] Neutrophils/100 WBC (Bld) 2 % Normal [facility] Comment on above: Performed By: #### L DX8732, KSM3118, VCH9301, CKG5183, BFB7029 ####[facility] [address] [address] PATHOLOGY REVIEW see below Normal [facility] Comment on above: Result Comment: REVI EWED BY DR. ALEXANDRU KILLIAN: Agree with differential. 12/12/2024 Performed By: #### L JF0975, AKR8880, PWK1756, ZLP2801, EFF4396 ####[facility] [address] [place] [address] PLASMA CELLS 0 % Normal [facility] Comment on above: Performed By: #### L UZ1467, JFL9808, XRY2047, UUO7792, WHR5927 ####[facility] [address] [place] [address] OTHER 0 Normal [facility] Comment on above: Performed By: #### L WU4670, CAM8639, VFF2631, VQD3399, ULU8997 ####[facility] [address] [place] [address] MRCP Abdomen WO and W contra st Tonya 12-12-2024 [facility] [address] [place] [address] Radiology PATIENT NAME: Carolina Hightower MR#: [id number] PROCEDURE DATE: 12/12/2024 ROOM#: [id number] ORDERING PHYS: Lyssa Farrell PROCEDURE: MRI ABDOMEN [...] Zimmer MD jp TD: 12/12/2024 JOB #: [id number] Radiology Page 1 of 1 COPY [facility] Saud Pierre MD - 12/12/2024 [place] [address] Radiology PATIENT NAME: Carolina Hightower MR#: [id number] PROCEDURE DATE: 12/12/2024 ROOM#: [facility] ORDERING PHYS: Lyssa Short PROCEDURE: MRI ABDOMEN W WO CONTRAST MRCP [...] Zimmer MD arlen TD: 12/12/2024 JOB #: [id number] Radiology Page 1 of 1 COPY [facility] Radiology Study observation (narrative) [facility] CBCon 12-11-2024 Basophils (Bld) [#/Vol] 0.1 10*3/uL 0.0 - 0.1 10*3/uL [facility] Basophils/100 WBC (Bld) 1.4 % High 0.0 - 1.0 % [facility] Differential cell count method Nom (Bld) Auto [facility] Eosinophils (Bld) [#/Vol] 0.2 10*3/uL 0.0 - 0.5 10*3/uL [facility] Eosinophils/100 WBC (Bld) 4.2 % 0.3 - 5.0 % [facility] Erythrocyte distribution width (RBC) [Ratio] 17.7 % 10.7 - 18.7 % [facility] Hematocrit (Bld) [Volume fraction] 34.3 % 33.0 - 51.0 % [facility] Hemoglobin (Bld) [Mass/Vol] 11.8 g/dL Low 12.0 - 16.0 g/dL [facility] Interpretation and review of laboratory results Abnormal [facility] Lymphocytes (Bld) [#/Vol] 1.2 10*3/uL 1.1 - 5.0 10*3/uL [facility] Lymphocytes/100 WBC (Bld) 28.4 % 24.0 - 44.0 % [facility] MCH (RBC) [Entitic mass] 32.5 pg 26.0 - 34.0 pg [facility] MCHC (RBC) [Mass/Vol] 34.3 g/dL 32.0 - 36.0 g/dL [facility] MCV (RBC) [Entitic vol] 94.6 fL 80.0 - 100.0 fL [facility] Monocytes (Bld) [#/Vol] 0.4 10*3/uL 0.0 - 1.4 10*3/uL [facility] Monocytes/100 WBC (Bld) 9.2 % 2.1 - 13.3 % [facility] Neutrophils (Bld) [#/Vol] 2.4 10*3/uL 1.5 - 8.5 10*3/uL [facility] Neutrophils/100 WBC (Bld) 56.8 % 35.0 - 66.0 % [facility] Platelet mean volume (Bld) [Entitic vol] 9.4 fL 6.5 - 10.0 fL [facility] [facility] Platelets (Bld) [#/Vol] 52 10*3/uL Low 150 - 450 10*3/uL [facility] RBC (Bld) [#/Vol] 3.62 10*6/uL Low 4.00 - 5.2 0 10*6/uL [facility] WBC (Bld) [#/Vol] 4.3 10*3/uL Low 4.5 - 11.0 10*3/uL [facility] CBC w/ Differentialon 2024 Basophil Abs. 0.1 10*3/uL Normal 0.0-0.1 [facility] Comment on above: Performed By: #### L [id number] ####[place] [address] [address] Basophils/100 WBC (Bld) 1.4 % High 0.0-1.0 [facility] Comment on above: Performed By: #### L [id number] ####[place] [address] Differential type Auto Normal [facility] Comment on above: Performed By: #### L [id number] ####[place] [address] Eosinophils (Bld) [#/Vol] 0.2 10*3/uL Normal 0.0-0.5 [facility] Comment on above: Performed By: #### L [id number] ####[place] [address] Eosinophils/100 WBC (Bld) 4.2 % Normal 0.3-5.0 [facility] Comment on above: Performed By: #### L IE6171 ####[place] [address] Erythrocyte distribution width (RBC) [Ratio] 17.7 % Normal 10.7-18.7 [facility] Comment on above: Performed By: #### L [id number] ####[place] [address] Hematocrit (Bld) [Volume fraction] 34.3 % Normal 33.0-51.0 [facility] Comment on above: Performed By: #### L [id number] ####[place] [address] Hemoglobin (Bld) [Mass/Vol] 11.8 g/dL Low 12.0-16.0 [facility] Comment on above: Performed By: #### L [id number] ####[place] [address] Lymphocytes (Bld) [#/Vol] 1.2 10*3/uL Normal 1.1-5.0 [facility] Comment on above: Performed By: #### L GX0286 ####BABATUN[place] [address] [address] Lymphocytes/100 WBC (Bld) 28.4 % Normal 24.0-44.0 [facility] Comment on above: Performed By: #### L IU8089 ####[place] [address] MCH (RBC) [Entitic mass] 32.5 pg Normal 26.0-34.0 [facility] Comment on above: Performed By: #### L HI2172 ####[place] [address] MCHC (RBC) [Mass/Vol] 34.3 g/dL Normal 32.0-36.0 [facility] Comment on above: Performed By: #### L IU8033 ####[place] [address] MCV (RBC) [Entitic vol] 94.6 fL Normal 80.0-100.0 [facility] Comment on above: Performed By: #### L FH3065 ####[place] [address] Monocytes (Bld) [#/Vol] 0.4 10*3/uL Normal 0.0-1.4 [facility] Comment on above: Performed By: #### L AC8568 ####[place] [address] Monocytes/100 WBC (Bld) 9.2 % Normal 2.1-13.3 [facility] Comment on above: Performed By: #### L EZ8856 ####[place] [id number] Neutrophils, Abs. 2.4 10*3/uL Normal 1.5-8.5 [facility] Comment on above: Performed By: #### L AV8566 ####[place] [address] Neutrophils/100 WBC (Bld) 56.8 % Normal 35.0-66.0 [facility] Comment on above: Performed By: #### L PY1535 ####[place] [address] Platelet Cnt 52 10*3/uL Low 150-450 [facility] Comment on above: Performed By: #### L XP0141 ####[place] [address] Platelet mean volume (Bld) [Entitic vol] 9.4 fL Normal 6.5-10.0 [facility] Comment on above: Performed By: #### L UC6736 ####[place] [address] RBC (Bld) [#/Vol] 3.62 10*6/uL Low 4.00-5.20 [facility] Comment on above: Performed By: #### L [id number] ####[place] [address] WBC (Bld) [#/Vol] 4.3 10*3/uL Low 4.5-11.0 [facility] Comment on above: Performed By: #### L OT6196 ####[place] [address] COMPREHENSIVE METABOLIC PANE [place] 12-11-2024 Albumin [Mass/Vol] 2.6 g/dL Low 3.2-5.0 [facility] Comment on above: Performed By: #### L FG8031 ####[place] [address] Albumin/Globulin [Mass ratio] 0.8 {ratio} Normal [facility] Comment on above: Performed By: #### L FE2664 ####[place] [address] ALP [Catalytic activity/Vol] 113 U/L Normal 42-121 [facility] Comment on above: Performed By: #### L AQ3947 ####[place] [address] ALT [Catalytic activity/Vol] 65 U/L High 10-60 [facility] Comment on above: Performed By: #### L TS7225 ####[place] [address] Anion gap [Moles/Vol] 5 mmol/L Normal [facility] Comment on above: Performed By: #### L DH0480 ####[place] [address] AST [Catalytic activity/Vol] 112 U/L High 10-42 [facility] Comment on above: Performed By: #### L SD6733 ####[place] [address] B/C 11 Normal 10-20 [facility] Comment on above: Performed By: #### L EG3634 ####[place] [address] Bilirubin.direct [Mass/Vol] 1.8 mg/dL High 0.2-1.0 [facility] Comment on above: Performed By: #### L TL2094 ####[place] [address] Calcium [Mass/Vol] 8.3 mg/dL Low 8.5-10.5 [facility] Comment on above: Performed By: #### L UO6129 ####[place] [address] Chloride [Moles/Vol] 111 mmol/L Normal 101-111 [facility] Comment on above: Performed By: #### L FQ0553 ####[place] [id number] CO2 [Moles/Vol] 22 mmol/L Normal 21-31 [facility] Comment on above: Performed By: #### L PS1439 ####[place] [address] Creatinine [Mass/Vol] 0.9 mg/dL Normal 0.4-1.0 [facility] Comment on above: Performed By: #### L UX1001 ####[place] [id number] GFR/1.73 sq M.predicted MDRD (S/P/Bld) [Vol rate/Area] 66 mL/min/{1.73_m2} Normal [facility] Comment on above: Result Comment: *The estimated Glomerular Filtration Rate(EGFR) may not be accurate for children under the age of 18 yrs. To estimate the GFR for -Americans multiply the result provided by 1.21.Stage 1 90 mL/min or greaterStage 2 60-89 mL/minStage 3 30-59 mL/minStage 4 15-29 mL/minStage 5 14 mL/min or less Performed By: #### L ID1743 ####[place] [address] Glucose [Mass/Vol] 83 mg/dL Normal 70-110 [facility] Comment on above: Performed By: #### L VB6429 ####[place] [address] Osmolality [Osmolality] 274 mosm/kg Normal 266-309 [facility] Comment on above: Performed By: #### L BL4128 ####[place] [address] Potassium [Moles/Vol] 3.9 mmol/L Normal 3.6-5.0 [facility] Comment on above: Performed By: #### L BN3242 ####[place] [id number] Protein [Mass/Vol] 5.8 g/dL Low 6.1-7.8 [facility] Comment on above: Performed By: #### L RG0975 ####[place] [id number] Sodium [Moles/Vol] 138 mmol/L Normal 135-145 [facility] Comment on above: Performed By: #### L AY3471 ####[place] [id number] Urea nitrogen [Mass/Vol] 10 mg/dL Normal 2-32 [facility] Comment on above: Performed By: #### L HR4422 ####[facility] [address] [place] [address] Comprehensive Metabolic Pane merritt 12-11-2024 Albumin [Mass/Vol] 2.6 g/dL Low 3.2 - 5.0 g/dL [facility] Albumin/Globulin [Mass ratio] 0.8 {ratio} [facility] ALP [Catalytic activity/Vol] 113 U/L 42 - 121 [iU]/L [facility] ALT [Catalytic activity/Vol] 65 U/L High 10 - 60 [iU]/L [facility] Anion gap [Moles/Vol] 5 mmol/L [facility] AST [Catalytic activity/Vol] 112 U/L High 10 - 42 [iU]/L [facility] Bilirubin [Mass/Vol] 1.8 mg/dL High 0.2 - 1 .0 mg/dL [facility] Calcium [Mass/Vol] 8.3 mg/dL Low 8.5 - 10. 5 mg/dL [facility] Chloride [Moles/Vol] 111 mmol/L 101 - 1 11 mmol/L [facility] CO2 [Moles/Vol] 22 mmol/L 21 - 31 mmol/L [facility] Creatinine [Mass/Vol] 0.9 mg/dL 0.4 - 1.0 mg/dL [facility] GFR/1.73 sq M.predicted MDRD (S/P/Bld) [Vol rate/Area] 66 mL/min/{1.73_m2} [facility] Comment on above: *The estimated Glome rular [...] [Mass/Vol] 83 mg/dL 70 - 110 mg/dL [facility] Interpretation and review of laboratory results Abnormal [facility] Osmolality Calc [Osmolality] 274 266 - 309 [facility] Potassium [Moles/Vol] 3.9 mmol/L 3.6 - 5.0 mmol/L [facility] Protein [Mass/Vol] 5.8 g/dL Low 6.1 - 7.8 g/dL [facility] Sodium [Moles/Vol] 138 mmol/L 135 - 145 mmol/L [facility] Urea nitrogen [Mass/Vol] 10 mg/dL 2 - 32 mg/dL [facility] Urea nitrogen/Creatinine [Mass ratio] 11 mg/mg 10 - 20 [facility] MRI ABDOMEN W WO CONTRAST MR CPon 12-11-2024 MRI ABDOMEN W WO CONTRAST MRCP Normal [facility] XR LUMBAR SPINE AP AND LATER Ale 12-11-2024 XR LUMBAR SPINE AP AND LATERAL Normal [facility] XR Lumbar spine AP and Later [facility] 12-11-2024 [place] [address] Radiology PATIENT NAME: Carolina Hightower MR#: [id number] PROCEDURE DATE: 12/11/2024 ROOM#: [id number] ORDERING PHYS: Isabella Ch Clinical history: Low [...] Parmar MD dd TD: 12/11/2024 JOB #: [id number] Radiology Page 1 of 1 COPY [facility] Bill Vasques MD - 12/11/2024 [place] [address] [place] [address] Radiology PATIENT NAME: Carolina Hightower MR#: [id number] PROCEDURE DATE: 12/11/2024 ROOM#: [id number] ORDERING PHYS: Isabella Ch Clinical history: Low [...] Parmar MD dd TD: 12/11/2024 JOB #: [id number] Radiology Page 1 of 1 COPY [facility] Rad[facility] Study observation (narrative) [facility] XR Lumbar spine AP and Later alOrdered By: Bill Vasques on 12-11-2024 [facility] Work Phone: AFP Serum Tumor Markeron AFP [Mass/Vol] 41.23 ng/mL Abnormal NINF - 6.00 ng/mL [facility] Comment on above: * Reference values a [...] Interpretation and review of laboratory results Abnormal [facility] AFP TUMOR MARKER, Son 2024 AFP TUMOR MARKER, S 41.23 ng/mL Abnormal < 6.00 [facility] Comment on above: Result Comment: * [...] of malignant disease. Performed By: #### L CD3356 ####[place] [address] AMMONIAon 12-10-2024 Ammonia (P) [Moles/Vol] 78 umol/L High 11-50 [facility] Comment on above: Performed By: #### L MT3858, BIE9379 ####[place] [address] Ammoniaon 12-10-2024 Ammonia (P) [Moles/Vol] 78 umol/L High 11 - 50 umol/L [facility] Interpretation and review of laboratory results Abnormal [facility] BASIC METABOLIC PANELon 11-24 Anion gap [Moles/Vol] 4 mmol/L Normal [facility] Comment on above: Performed By: #### L YK0100, BRZ2999, XFR5123 ####[place] [address] B/C 7 Low 10-20 [facility] Comment on above: Performed By: #### L XV4285, BDG6942, MDR1585 ####[place] [address] Calcium [Mass/Vol] 8.7 mg/dL Normal 8.5-10.5 [facility] Comment on above: Performed By: #### L RG0261, UYB6301, MUP7752 ####[place] [address] Chloride [Moles/Vol] 111 mmol/L Normal 101-111 [facility] Comment on above: Performed By: #### L TE8344, BCL7050, OSA4748 ####[place] [address] CO2 [Moles/Vol] 20 mmol/L Low 21-31 [facility] Comment on above: Performed By: #### L ER4720, NPN1011, UNT6540 ####[place] [address] [address] Creatinine [Mass/Vol] 0.9 mg/dL Normal 0.4-1.0 [facility] Comment on above: Performed By: #### L CS8424, QPA1986, ZXS0172 ####[place]AB[place] [address] [address] GFR/1.73 sq M.predicted MDRD (S/P/Bld) [Vol rate/Area] 66 mL/min/{1.73_m2} Normal [facility] Comment on above: Result Comment: *The estimated Glomerular Filtration Rate(EGFR) may not be accurate for children under the age of 18 yrs. To estimate the GFR for -Americans multiply the result provided by 1.21.Stage 1 90 mL/min or greaterStage 2 60-89 mL/minStage 3 30-59 mL/minStage 4 15-29 mL/minStage 5 14 mL/min or less Performed By: #### L FZ0326, FCJ3946, XWA6236 ####[place] [address] [address] Glucose [Mass/Vol] 90 mg/dL Normal 70-110 [facility] Comment on above: Performed By: #### L IL1425, KBP7981, OPY2321 ####[place] [address] [address] Osmolality [Osmolality] 267 mosm/kg Normal 266-309 [facility] Comment on above: Performed By: #### L BC3354, PGB4526, JBL7140 ####[place] [address] [address] Potassium [Moles/Vol] 3.9 mmol/L Normal 3.6-5.0 [facility] Comment on above: Performed By: #### L KN3212, DBW5113, VAQ6152 ####[place] [address] [address] Sodium [Moles/Vol] 135 mmol/L Normal 135-145 [facility] Comment on above: Performed By: #### L LB3515, ZHO3853, TIX4382 ####[facility] [address] [place] [address] Urea nitrogen [Mass/Vol] 6 mg/dL Normal 2-32 [facility] Comment on above: Performed By: #### L WC9034, JDH6988, WRE1302 ####[facility] [address] [place] [address] BLOOD CULTUREon 12-10-2024 Bacteria identified Cx Nom (Bld) Bacteria identified in Blood by Culture BLOOD CULTURE: No growth @ 24 hours. Normal [facility] Comment on above: Performed By: #### L HQ4385 ####[address] [address] Basic Metabolic Panelon 11-24 Anion gap [Moles/Vol] 4 mmol/L [facility] Calcium [Mass/Vol] 8.7 mg/dL 8.5 - 10. 5 mg/dL [facility] Chloride [Moles/Vol] 111 mmol/L 101 - 1 11 mmol/L [facility] CO2 [Moles/Vol] 20 mmol/L Low 21 - 31 mmol/L [facility] Creatinine [Mass/Vol] 0.9 mg/dL 0.4 - 1.0 mg/dL [facility] GFR/1.73 sq M.predicted MDRD (S/P/Bld) [Vol rate/Area] 66 mL/min/{1.73_m2} [facility] Comment on above: *The estimated Glome rular [...] 90 mg/dL 70 - 110 mg/dL [facility] Interpretation and review of laboratory results Abnormal [facility] Osmolality Calc [Osmolality] 267 266 - 309 [facility] Potassium [Moles/Vol] 3.9 mmol/L 3.6 - 5.0 mmol/L [facility] Sodium [Moles/Vol] 135 mmol/L 135 - 145 mmol/L [facility] Urea nitrogen [Mass/Vol] 6 mg/dL 2 - 32 mg/dL [facility] Urea nitrogen/Creatinine [Mass ratio] 7 mg/mg Low 10 - 20 [facility] CBCon 12-10-2024 Basophils (Bld) [#/Vol] 0.0 10*3/uL 0.0 - 0.1 10*3/uL [facility] Basophils/100 WBC (Bld) 1.0 % 0.0 - 1.0 % [facility] Differential cell count method Nom (Bld) Auto [facility] Eosinophils (Bld) [#/Vol] 0.3 10*3/uL 0.0 - 0.5 10*3/uL [facility] Eosinophils/100 WBC (Bld) 6.2 % High 0.3 - 5.0 % [facility] Erythrocyte distribution width (RBC) [Ratio] 18.0 % 10.7 - 18.7 % [facility] Hematocrit (Bld) [Volume fraction] 35.1 % 33.0 - 51.0 % [facility] Hemoglobin (Bld) [Mass/Vol] 12.2 g/dL 12.0 - 16.0 g/dL [facility] Interpretation and review of laboratory results Abnormal [facility] Lymphocytes (Bld) [#/Vol] 1.3 10*3/uL 1.1 - 5.0 10*3/uL [facility] Lymphocytes/100 WBC (Bld) 27.3 % 24.0 - 44.0 % [facility] MCH (RBC) [Entitic mass] 32.3 pg 26.0 - 34.0 pg [facility] MCHC (RBC) [Mass/Vol] 34.7 g/dL 32.0 - 36.0 g/dL [facility] MCV (RBC) [Entitic vol] 93.0 fL 80.0 - 100.0 fL [facility] Monocyte distribution width Auto (Bld) [Entitic vol] 18.8 0.0 - 20.0 [facility] Monocytes (Bld) [#/Vol] 0.5 10*3/uL 0.0 - 1.4 10*3/uL [facility] Monocytes/100 WBC (Bld) 10.2 % 2.1 - 13.3 % [facility] Neutrophils (Bld) [#/Vol] 2.6 10*3/uL 1.5 - 8.5 10*3/uL [facility] Neutrophils/100 WBC (Bld) 55.3 % 35.0 - 66.0 % [facility] Platelet mean volume (Bld) [Entitic vol] 9.5 fL 6.5 - 10.0 fL [facility] Platelets (Bld) [#/Vol] 55 10*3/uL Low 150 - 450 10*3/uL [facility] RBC (Bld) [#/Vol] 3.77 10*6/uL Low 4.00 - 5.2 0 10*6/uL [facility] WBC (Bld) [#/Vol] 4.7 10*3/uL 4.5 - 11.0 10*3/uL [facility] CBC w/ Differentialon 2024 Basophil Abs. 0.0 10*3/uL Normal 0.0-0.1 [facility] Comment on above: Performed By: #### L [id number] ####[place] [address] Basophils/100 WBC (Bld) 1.0 % Normal 0.0-1.0 [facility] Comment on above: Performed By: #### L IM4153 ####[place] [address] Differential type Auto Normal [facility] Comment on above: Performed By: #### L VO6847 ####[place] [address] Eosinophils (Bld) [#/Vol] 0.3 10*3/uL Normal 0.0-0.5 [facility] Comment on above: Performed By: #### L BC7419 ####[place] [address] Eosinophils/100 WBC (Bld) 6.2 % High 0.3-5.0 [facility] Comment on above: Performed By: #### L GP2244 ####[place] [address] Erythrocyte distribution width (RBC) [Ratio] 18.0 % Normal 10.7-18.7 [facility] Comment on above: Performed By: #### L QU7968 ####[place] [address] Hematocrit (Bld) [Volume fraction] 35.1 % Normal 33.0-51.0 [facility] Comment on above: Performed By: #### L TR1568 ####[place] [address] Hemoglobin (Bld) [Mass/Vol] 12.2 g/dL Normal 12.0-16.0 [facility] Comment on above: Performed By: #### L SZ3057 ####[place] [address] Lymphocytes (Bld) [#/Vol] 1.3 10*3/uL Normal 1.1-5.0 [facility] Comment on above: Performed By: #### L EF1953 ####[place] [address] Lymphocytes/100 WBC (Bld) 27.3 % Normal 24.0-44.0 [facility] Comment on above: Performed By: #### L LE4334 ####[place] [address] MCH (RBC) [Entitic mass] 32.3 pg Normal 26.0-34.0 [facility] Comment on above: Performed By: #### L SB3847 ####[place] [address] MCHC (RBC) [Mass/Vol] 34.7 g/dL Normal 32.0-36.0 [facility] Comment on above: Performed By: #### L KA1622 ####[place] [address] MCV (RBC) [Entitic vol] 93.0 fL Normal 80.0-100.0 [facility] Comment on above: Performed By: #### L JE1147 ####[place] [address] MDW 18.8 Normal 0.0-20.0 [facility] Comment on above: Performed By: #### L YJ3384 ####[place] [address] Monocytes (Bld) [#/Vol] 0.5 10*3/uL Normal 0.0-1.4 [facility] Comment on above: Performed By: #### L UB9908 ####[place] [address] Monocytes/100 WBC (Bld) 10.2 % Normal 2.1-13.3 [facility] Comment on above: Performed By: #### L XV0435 ####[place] [address] Neutrophils, Abs. 2.6 10*3/uL Normal 1.5-8.5 [facility] Comment on above: Performed By: #### L RA1535 ####[place] [address] Neutrophils/100 WBC (Bld) 55.3 % Normal 35.0-66.0 [facility] Comment on above: Performed By: #### L QW3062 ####[place] [address] Platelet Cnt 55 10*3/uL Low 150-450 [facility] Comment on above: Performed By: #### L DG6281 ####[place] [address] Platelet mean volume (Bld) [Entitic vol] 9.5 fL Normal 6.5-10.0 [facility] Comment on above: Performed By: #### L RK7257 ####[place] [address] RBC (Bld) [#/Vol] 3.77 10*6/uL Low 4.00-5.20 [facility] Comment on above: Performed By: #### L BM3957 ####[place] [address] WBC (Bld) [#/Vol] 4.7 10*3/uL Normal 4.5-11.0 [facility] Comment on above: Performed By: #### L FN3934 ####[place] [address] Basophil Abs. 0.0 10*3/uL Normal 0.0-0.1 [facility] Comment on above: Performed By: #### L QB3121, HZC6170, FCQ2674 ####[place] [address] Basophils/100 WBC (Bld) 0.9 % Normal 0.0-1.0 [facility] Comment on above: Performed By: #### L AF1954, VNF4968, JMQ0914 ####[place] [address] Differential type Auto Normal [facility] Comment on above: Performed By: #### L PI6755, HHS8583, IPS6702 ####[place] [address] Eosinophils (Bld) [#/Vol] 0.3 10*3/uL Normal 0.0-0.5 [facility] Comment on above: Performed By: #### L FE3071, OTT9128, KMF8105 ####[place] [address] Eosinophils/100 WBC (Bld) 5.9 % High 0.3-5.0 [facility] Comment on above: Performed By: #### L HB6828, SWY9922, ZHL5693 ####[place] [address] Erythrocyte distribution width (RBC) [Ratio] 18.0 % Normal 10.7-18.7 [facility] Comment on above: Performed By: #### L ZG8690, SJZ1755, TGS1256 ####[place] [address] Hematocrit (Bld) [Volume fraction] 36.1 % Normal 33.0-51.0 [facility] Comment on above: Performed By: #### L KM4077, OXR8847, FJI7022 ####[place] [address] Hemoglobin (Bld) [Mass/Vol] 12.6 g/dL Normal 12.0-16.0 [facility] Comment on above: Performed By: #### L AB9595, RPT2464, IIQ4383 ####[place] [address] Lymphocytes (Bld) [#/Vol] 1.4 10*3/uL Normal 1.1-5.0 [facility] Comment on above: Performed By: #### L FY0079, PPC0840, ECO7070 ####[place] [address] Lymphocytes/100 WBC (Bld) 26.4 % Normal 24.0-44.0 [facility] Comment on above: Performed By: #### L NE6521, OCM2793, BJU9854 ####[place] [address] MCH (RBC) [Entitic mass] 32.6 pg Normal 26.0-34.0 [facility] Comment on above: Performed By: #### L UQ5005, EKZ7573, NMJ9359 ####[place] [address] MCHC (RBC) [Mass/Vol] 35.0 g/dL Normal 32.0-36.0 [facility] Comment on above: Performed By: #### L AO2163, YQA2480, WKN7597 ####[place] [address] MCV (RBC) [Entitic vol] 93.2 fL Normal 80.0-100.0 [facility] Comment on above: Performed By: #### L SL8399, ZQG0519, OMM9398 ####[place] [address] MDW 19.9 Normal 0.0-20.0 [facility] Comment on above: Performed By: #### L EG1344, EWT6649, DHP4590 ####[place] [address] Monocytes (Bld) [#/Vol] 0.5 10*3/uL Normal 0.0-1.4 [facility] Comment on above: Performed By: #### L SN5004, STZ0845, EXW7573 ####[place] [address] Monocytes/100 WBC (Bld) 9.8 % Normal 2.1-13.3 [facility] Comment on above: Performed By: #### L XO8260, HKV8226, YRY8436 ####[place] [address] Neutrophils, Abs. 3.1 10*3/uL Normal 1.5-8.5 [facility] Comment on above: Performed By: #### L JE5360, OGF8830, NOX6282 ####[place] [address] Neutrophils/100 WBC (Bld) 57.0 % Normal 35.0-66.0 [facility] Comment on above: Performed By: #### L GQ2234, DSB3518, RED0784 ####[place] [address] Platelet Cnt 54 10*3/uL Low 150-450 [facility] Comment on above: Performed By: #### L MF0645, IZI5794, SQH1472 ####[place] [address] Platelet mean volume (Bld) [Entitic vol] 9.5 fL Normal 6.5-10.0 [facility] Comment on above: Performed By: #### L OA9459, PUW8546, AAX2576 ####[facility] [address] [place] [address] RBC (Bld) [#/Vol] 3.87 10*6/uL Low 4.00-5.20 [facility] Comment on above: Performed By: #### L KV2770, SQJ7989, KJP9062 ####[facility] [address] [place] [address] WBC (Bld) [#/Vol] 5.4 10*3/uL Normal 4.5-11.0 [facility] Comment on above: Performed By: #### L OG6983, RZL9584, QMF3437 ####[facility] [address] [place] [address] CBC w/Differentialon 025 Basophils (Bld) [#/Vol] 0.0 10*3/uL 0.0 - 0.1 10*3/uL [facility] Basophils/100 WBC (Bld) 0.9 % 0.0 - 1.0 % [facility] Differential cell count method Nom (Bld) Auto [facility] Eosinophils (Bld) [#/Vol] 0.3 10*3/uL 0.0 - 0.5 10*3/uL [facility] Eosinophils/100 WBC (Bld) 5.9 % High 0.3 - 5.0 % [facility] Erythrocyte distribution width (RBC) [Ratio] 18.0 % 10.7 - 18.7 % [facility] Hematocrit (Bld) [Volume fraction] 36.1 % 33.0 - 51.0 % [facility] Hemoglobin (Bld) [Mass/Vol] 12.6 g/dL 12.0 - 16.0 g/dL [facility] Interpretation and review of laboratory results Abnormal [facility] Lymphocytes (Bld) [#/Vol] 1.4 10*3/uL 1.1 - 5.0 10*3/uL [facility] Lymphocytes/100 WBC (Bld) 26.4 % 24.0 - 44.0 % [facility] MCH (RBC) [Entitic mass] 32.6 pg 26.0 - 34.0 pg [facility] MCHC (RBC) [Mass/Vol] 35.0 g/dL 32.0 - 36.0 g/dL [facility] MCV (RBC) [Entitic vol] 93.2 fL 80.0 - 100.0 fL [facility] Monocyte distribution width Auto (Bld) [Entitic vol] 19.9 0.0 - 20.0 [facility] Monocytes (Bld) [#/Vol] 0.5 10*3/uL 0.0 - 1.4 10*3/uL [facility] Monocytes/100 WBC (Bld) 9.8 % 2.1 - 13.3 % [facility] Neutrophils (Bld) [#/Vol] 3.1 10*3/uL 1.5 - 8.5 10*3/uL [facility] Neutrophils/100 WBC (Bld) 57.0 % 35.0 - 66.0 % [facility] Platelet mean volume (Bld) [Entitic vol] 9.5 fL 6.5 - 10.0 fL [facility] Platelets (Bld) [#/Vol] 54 10*3/uL Low 150 - 450 10*3/uL [facility] RBC (Bld) [#/Vol] 3.87 10*6/uL Low 4.00 - 5.2 0 10*6/uL [facility] WBC (Bld) [#/Vol] 5.4 10*3/uL 4.5 - 11.0 10*3/uL [facility] CKon 12-10-2024 CK [Catalytic activity/Vol] 100 U/L Normal 22- [facility] Comment on above: Performed By: #### L [id number], [id number], [id number] ####[facility] [id number] [place] [address] CK [Catalytic activity/Vol] 100 U/L 22 - 269 [iU]/L [facility] COMPREHENSIVE METABOLIC PANE [place] 12-10-2024 Albumin [Mass/Vol] 2.7 g/dL Low 3.2-5.0 [facility] Comment on above: Performed By: #### L WL3515 ####[place] [address] Albumin/Globulin [Mass ratio] 0.8 {ratio} Normal [facility] Comment on above: Performed By: #### L NN6392 ####[place] [address] ALP [Catalytic activity/Vol] 121 U/L Normal 42-121 [facility] Comment on above: Performed By: #### L GB2392 ####[place] [address] ALT [Catalytic activity/Vol] 67 U/L High 10-60 [facility] Comment on above: Performed By: #### L WC7107 ####[place] [address] Anion gap [Moles/Vol] 3 mmol/L Normal [facility] Comment on above: Performed By: #### L AU5350 ####[place] [address] AST [Catalytic activity/Vol] 109 U/L High 10-42 [facility] Comment on above: Performed By: #### L PT1169 ####[place] [address] B/C 9 Low 10-20 [facility] Comment on above: Performed By: #### L SF9404 ####[place] [address] Bilirubin.direct [Mass/Vol] 2.6 mg/dL High 0.2-1.0 [facility] Comment on above: Performed By: #### L GH6271 ####[place] [address] Calcium [Mass/Vol] 8.6 mg/dL Normal 8.5-10.5 [facility] Comment on above: Performed By: #### L GH9809 ####BABATUNDE [id number] [place] [address] Chloride [Moles/Vol] 112 mmol/L High 101-111 [facility] Comment on above: Performed By: #### L CU8884 ####BABSNuvia [id number] [place] [address] CO2 [Moles/Vol] 21 mmol/L Normal 21-31 [facility] Comment on above: Performed By: #### L ZR2506 ####BABATUNDE [address] [address] Creatinine [Mass/Vol] 0.8 mg/dL Normal 0.4-1.0 [facility] Comment on above: Performed By: #### L VK3976 ####BABATUNDE [address] [address] GFR/1.73 sq M.predicted MDRD (S/P/Bld) [Vol rate/Area] 76 mL/min/{1.73_m2} Normal [facility] Comment on above: Result Comment: *The estimated Glomerular Filtration Rate(EGFR) may not be accurate for children under the age of 18 yrs. To estimate the GFR for -Americans multiply the result provided by 1.21.Stage 1 90 mL/min or greaterStage 2 60-89 mL/minStage 3 30-59 mL/minStage 4 15-29 mL/minStage 5 14 mL/min or less Performed By: #### L FL7014 ####BABATUNDE [address] [address] Glucose [Mass/Vol] 82 mg/dL Normal 70-110 [facility] Comment on above: Performed By: #### L OD0721 ####BABATUNDE [id number] [place] [address] Osmolality [Osmolality] 269 mosm/kg Normal 266-309 [facility] Comment on above: Performed By: #### L KE3676 ####BABATUNDE [address] [address] Potassium [Moles/Vol] 3.8 mmol/L Normal 3.6-5.0 [facility] Comment on above: Performed By: #### L SR1337 ####BABATUNDE [address] [address] Protein [Mass/Vol] 5.9 g/dL Low 6.1-7.8 [facility] Comment on above: Performed By: #### L AW0279 ####BABATUNDE [address] [address] Sodium [Moles/Vol] 136 mmol/L Normal 135-145 [facility] Comment on above: Performed By: #### L IB0921 ####BABATUNDE [address] [address] Urea nitrogen [Mass/Vol] 7 mg/dL Normal 2-32 [facility] Comment on above: Performed By: #### L CN8146 ####BABATUNDE [address] [address] Albumin [Mass/Vol] 2.8 g/dL Low 3.2-5.0 [facility] Comment on above: Performed By: #### L QC7181, WZF3315, PZB3341, FYG3490 ####BABATUNDE [address] [address] Albumin/Globulin [Mass ratio] 0.9 {ratio} Normal [facility] Comment on above: Performed By: #### L IM6640, FEM6936, SQE1349, KOQ6945 ####BABATUNDE [address] [address] ALP [Catalytic activity/Vol] 129 U/L High 42-121 [facility] Comment on above: Performed By: #### L MA7199, SSI0688, JOL8028, BQI7573 ####BABATUNDE [address] [address] ALT [Catalytic activity/Vol] 65 U/L High 10-60 [facility] Comment on above: Performed By: #### L GV4938, CEP3756, AXA6140, KSY2827 ####BABATUNDE [address] [address] Anion gap [Moles/Vol] 3 mmol/L Normal Kin [facility] Comment on above: Performed By: #### L KZ2138, JRO8252, TVJ4515, KSU1964 ####[place] [address] AST [Catalytic activity/Vol] 111 U/L High 10-42 [facility] Comment on above: Performed By: #### L CD7637, YOE1634, XEA6371, HRF4084 ####[place] [address] B/C 6 Low 10-20 [facility] Comment on above: Performed By: #### L ZR4036, LHN7745, XHM6073, DID8610 ####[place] [address] Bilirubin.direct [Mass/Vol] 2.4 mg/dL High 0.2-1.0 [facility] Comment on above: Performed By: #### L JK3396, PSR0837, ELL0826, AQT1987 ####[place] [address] Calcium [Mass/Vol] 8.7 mg/dL Normal 8.5-10.5 [facility] Comment on above: Performed By: #### L VQ2476, HAM6429, RCS8652, NWY7964 ####[place] [address] Chloride [Moles/Vol] 112 mmol/L High 101-111 [facility] Comment on above: Performed By: #### L BL5523, QYY4852, CVY1651, WOA6903 ####[place] [address] CO2 [Moles/Vol] 20 mmol/L Low 21-31 [facility] Comment on above: Performed By: #### L YU7921, GPV6625, SPK1366, WWS2152 ####[place] [address] Creatinine [Mass/Vol] 1.0 mg/dL Normal 0.4-1.0 [facility] Comment on above: Performed By: #### L AP5185, UKS8830, KMV5143, TOL3254 ####[facility] [place] [address] GFR/1.73 sq M.predicted MDRD (S/P/Bld) [Vol rate/Area] 58 mL/min/{1.73_m2} Normal [facility] Comment on above: Result Comment: *The estimated Glomerular Filtration Rate(EGFR) may not be accurate for children under the age of 18 yrs. To estimate the GFR for -Americans multiply the result provided by 1.21.Stage 1 90 mL/min or greaterStage 2 60-89 mL/minStage 3 30-59 mL/minStage 4 15-29 mL/minStage 5 14 mL/min or less Performed By: #### L XX7795, QMT5804, WNU0602, XLY8427 ####BABATUNDE [address] [address] Glucose [Mass/Vol] 87 mg/dL Normal 70-110 [facility] Comment on above: Performed By: #### L FF9469, WIG7780, CLY2712, XSD7276 ####BABATUNDE [address] [address] Osmolality [Osmolality] 267 mosm/kg Normal 266-309 [facility] Comment on above: Performed By: #### L RI0274, ADN9717, UYR1926, NHD3724 ####BABATUNDE [address] [address] Potassium [Moles/Vol] 3.9 mmol/L Normal 3.6-5.0 [facility] Comment on above: Performed By: #### L HF1839, UHE1084, LOB5228, PKE0561 ####BABS[address] [address] Protein [Mass/Vol] 5.9 g/dL Low 6.1-7.8 [facility] Comment on above: Performed By: #### L OT4308, KLA0084, XHH4224, CUK7529 ####BABATUNDE [address] [address] Sodium [Moles/Vol] 135 mmol/L Normal 135-145 [facility] Comment on above: Performed By: #### L OT8984, QYG8928, FWI4355, MEQ6439 ####[facility] [address] [place] [address] Urea nitrogen [Mass/Vol] 6 mg/dL Normal 2-32 [facility] Comment on above: Performed By: #### L JQ0790, RMT6613, ERJ4392, RCG8401 ####[facility] [address] [place] [address] Comprehensive Metabolic Pane [place] 12-10-2024 Albumin [Mass/Vol] 2.7 g/dL Low 3.2 - 5.0 g/dL [facility] Albumin/Globulin [Mass ratio] 0.8 {ratio} [facility] ALP [Catalytic activity/Vol] 121 U/L 42 - 121 [iU]/L [facility] ALT [Catalytic activity/Vol] 67 U/L High 10 - 60 [iU]/L [facility] Anion gap [Moles/Vol] 3 mmol/L [facility] AST [Catalytic activity/Vol] 109 U/L High 10 - 42 [iU]/L [facility] Bilirubin [Mass/Vol] 2.6 mg/dL High 0.2 - 1 .0 mg/dL [facility] Calcium [Mass/Vol] 8.6 mg/dL 8.5 - 10. 5 mg/dL [facility] Chloride [Moles/Vol] 112 mmol/L High 101 - 1 11 mmol/L [facility] CO2 [Moles/Vol] 21 mmol/L 21 - 31 mmol/L [facility] Creatinine [Mass/Vol] 0.8 mg/dL 0.4 - 1.0 mg/dL [facility] GFR/1.73 sq M.predicted MDRD (S/P/Bld) [Vol rate/Area] 76 mL/min/{1.73_m2} [facility] Comment on above: *The estimated Glome rular [...] [Mass/Vol] 82 mg/dL 70 - 110 mg/dL [facility] Interpretation and review of laboratory results Abnormal [facility] Osmolality Calc [Osmolality] 269 266 - 309 [facility] Potassium [Moles/Vol] 3.8 mmol/L 3.6 - 5.0 mmol/L [facility] Protein [Mass/Vol] 5.9 g/dL Low 6.1 - 7.8 g/dL [facility] Sodium [Moles/Vol] 136 mmol/L 135 - 145 mmol/L [facility] Urea nitrogen [Mass/Vol] 7 mg/dL 2 - 32 mg/dL [facility] Urea nitrogen/Creatinine [Mass ratio] 9 mg/mg Low 10 - 20 [facility] Albumin [Mass/Vol] 2.8 g/dL Low 3.2 - 5.0 g/dL [facility] Albumin/Globulin [Mass ratio] 0.9 {ratio} [facility] ALP [Catalytic activity/Vol] 129 U/L High 42 - 121 [iU]/L [facility] ALT [Catalytic activity/Vol] 65 U/L High 10 - 60 [iU]/L [facility] Anion gap [Moles/Vol] 3 mmol/L [facility] AST [Catalytic activity/Vol] 111 U/L High 10 - 42 [iU]/L [facility] Bilirubin [Mass/Vol] 2.4 mg/dL High 0.2 - 1 .0 mg/dL [facility] Calcium [Mass/Vol] 8.7 mg/dL 8.5 - 10. 5 mg/dL [facility] Chloride [Moles/Vol] 112 mmol/L High 101 - 1 11 mmol/L [facility] CO2 [Moles/Vol] 20 mmol/L Low 21 - 31 mmol/L [facility] Creatinine [Mass/Vol] 1.0 mg/dL 0.4 - 1.0 mg/dL [facility] GFR/1.73 sq M.predicted MDRD (S/P/Bld) [Vol rate/Area] 58 mL/min/{1.73_m2} [facility] Comment on above: *The estimated Glome rular [...] [Mass/Vol] 87 mg/dL 70 - 110 mg/dL [facility] Interpretation and review of laboratory results Abnormal [facility] Osmolality Calc [Osmolality] 267 266 - 309 [facility] Potassium [Moles/Vol] 3.9 mmol/L 3.6 - 5.0 mmol/L [facility] Protein [Mass/Vol] 5.9 g/dL Low 6.1 - 7.8 g/dL [facility] Sodium [Moles/Vol] 135 mmol/L 135 - 145 mmol/L [facility] Urea nitrogen [Mass/Vol] 6 mg/dL 2 - 32 mg/dL [facility] Urea nitrogen/Creatinine [Mass ratio] 6 mg/mg Low 10 - 20 [facility] FLUID CELL COUNTon 5 Character (U) Slt Hazy Normal [facility] Comment on above: Performed By: #### L XI3332, EFQ3092, KIF1741, BJA7896, DYK3935 ####[facility] [address] [place] [address] Color (U) Yellow Normal [facility] Comment on above: Performed By: #### L DH6139, GMD9139, SUV4039, TXN8245, RQA8414 ####[facility] [address] [place] [address] FLD COMMENT see below Normal [facility] Comment on above: Result Comment: Refe rence ranges & other method performance specifications have not beenestablished for this body fluid type. The test result must be integratedinto the clinical context for interpretation. Performed By: #### L JJ5658, IYJ5637, WZW9307, FER6176, QPH5144 ####[place] [address] RBC 1,023 uL Normal [facility] Comment on above: Performed By: #### L GL8893, QXY1554, HEH0211, XKK8020, GRI2711 ####[place] [address] SOURCE Ascites Normal [facility] Comment on above: Performed By: #### L NM7060, KKS3774, OWI6247, GYF8950, ZNW6240 ####[place] [address] TOTAL NUC. CELLS 172 uL [facility] Comment on above: Result Comment: RESU LTS OF COUNT MAY BE INACCURATE IF SPECIMEN IS PARTIALLYCLOTTED OR EXHIBIT CELL CLUMPING. Performed By: #### L GM3149, VMI6599, LWY7403, WLU8377, ZGK7358 ####[place] [address] TUBE NUMBER Syringe Normal [facility] Comment on above: Performed By: #### L FY9917, WOZ0600, FKD7337, QUC1082, WJW4919 ####[place] [address] VOLUME 60.0 [facility] Comment on above: Performed By: #### L TM3005, EEF4597, ZLK6932, VQA5748, LRA4682 ####[place] [address] FLUID CULTUREon 12-10-2024 FLUID CULTURE Bacteria identified in Body fluid by Culture FLUID CULTURE: No Growth - Preliminary Microscopic observation [Identifier] in Specimen by Gram stain GRAM STAIN SMEAR: Rare WBC'S. No organisms seen. [facility] Comment on above: Performed By: #### L YX4220 ####[place] [address] Fingerstick Glucoseon 2024 Glucose [Mass/Vol] 81 mg/dL 70 - 110 mg/dL [facility] GLUCOSE, FLUIDon 12-10-2024 GLUCOSE, FLUID 94 mg/dL Normal [facility] Comment on above: Result Comment: Refe rence ranges & other method performance specifications have not beenestablished for this body fluid type. The test result must be integratedinto the clinical context for interpretation. Performed By: #### L QO9761, BBK6421, KYF0861, TPY9527, NHK7495 ####[facility] [address] [place] [address] GLUCOSE, GLUCOMETERon 2024 Glucose [Mass/Vol] 81 mg/dL Normal 70-110 [facility] Comment on above: Performed By: #### L YO4311 ####[place] [address] Glucose Body Fluidon 025 Glucose (Body fld) [Mass/Vol] 94 mg/dL [facility] Comment on above: Reference ranges & o ther method performance specifications have not been established for this body fluid type. The test result must be integrated into the clinical context for interpretation. LACTIC ACIDon 12-10-2024 Lactate [Moles/Vol] 0.6 mmol/L Normal 0.5-1.9 [facility] Comment on above: Performed By: #### L QB2916, PKB0385, EKD7367, DZD7550 ####[facility] [address] [place] [address] LDH, FLUIDon 12-10-2024 LDH FLUID 44 [iU]/L Low 60-160 [facility] Comment on above: Performed By: #### L DT6387, LHT5855, WTE0777, EKZ0836, RWW0430 ####[address] [address] LDH, Fluidon 12-10-2024 Interpretation and review of laboratory results Abnormal [facility] LDH (Body fld) [Catalytic activity/Vol] 44 [iU]/L Low 60 - 160 [iU]/L [facility] LIPASEon 12-10-2024 Lipase [Catalytic activity/Vol] 37 U/L Normal [facility] Comment on above: Performed By: #### L LW4307, AWA3895, WHY4603, BAE6890 ####[place] [address] [place] [address] Lactic Acid, Venouson 2024 Lactate [Moles/Vol] 0.6 mmol/L 0.5 - 1. 9 mmol/L [facility] Lipaseon 12-10-2024 Lipase [Catalytic activity/Vol] 37 U/L U/L [facility] NON FISH PROCESSOR CASESon 12-10-2024 NON FISH PROCESSOR CASES Normal [facility] Comment on above: Performed By: #### L UB7990 ####[place] [address] No Panel Informationon 12-10 [facility] PROCALCITONIN, Son PROCALCITONIN, S 0.09 ng/mL Normal [facility] Comment on above: Result Comment: . <0 [...] or septic shock. Performed By: #### L CQ4518, WLM8261, KXR5233, IZK5709 ####BABATUNDE [id number] [place] [address] PT AND APTTon 12-10-2024 aPTT Coag (Bld) [Time] 41.3 s High 24.2-34.2 [facility] Comment on above: Performed By: #### L BG4130, JUW5860 ####BABATUNDE [address] [address] INR Coag (PPP) [Relative time] 1.7 {INR} High 0.9-1.1 [facility] Comment on above: LEVEL OF THERAPY IND ICATIONS TARGET INR RANGE STANDARD DOSE TREATMENT OF VENOUS THROMBOSIS 2.0-3.0 TREATMENT OF PULMONARY EMBOLUS PROPHYLAXIS AGAINST VENOUS THROMBOSIS BY SYSTEMIC EMBOLIZATION . HIGH DOSE HIGH RISK PATIENTS WITH 2.5-3.5 MECHANICAL HEART VALVES Result Comment: MITCHE L OF THERAPY INDICATIONS TARGET INR RANGESTANDARD DOSE TREATMENT OF VENOUS THROMBOSIS 2.0-3.0 TREATMENT OF PULMONARY EMBOLUS PROPHYLAXIS AGAINST VENOUS THROMBOSIS BY SYSTEMIC EMBOLIZATION .HIGH DOSE HIGH RISK PATIENTS WITH 2.5-3.5 MECHANICAL HEART VALVES Performed By: #### L YD0005, KUE1480 ####[facility] [address] [place] [address] PT Coag (PPP) [Time] 20.1 s High 10.1-13.7 [facility] Comment on above: Performed By: #### L RF8306, HGM0542 ####[facility] [address] [place] [address] PT/APTT/INRon 12-10-2024 aPTT Coag (PPP) [Time] 41.3 s High 24.2 - 34.2 s [facility] Interpretation and review of laboratory results Abnormal [facility] Procalcitonin, BARAK, Antonio 12-10 Procalcitonin [Mass/Vol] 0.09 ng/mL [facility] Comment on above: . <0.05 ng/mL Healthy [...] to severe bacterial sepsis or septic shock. [facility] Protein Body Fluidon 025 Protein (Body fld) [Mass/Vol] 961.0 mg/dL [facility] Specimen source Nom (Body fld) Ascites [facility] Protein, Fluidon 12-10-2024 Protein, Fluid 961.0 mg/dL Normal [facility] Comment on above: Performed By: #### L JY5363, IDF0931, KPS1964, TJN5335, OAD9873 ####[facility] [address] [place] [address] SOURCE Ascites Normal [facility] Comment on above: Performed By: #### L KW0502, TZI3884, MJX3944, VDF0299, IQV5076 ####[facility] [address] [place] [address] UA for Infection (Reflex Cul ture)on 12-10-2024 Bacteria Auto (Urine sed) [#/Area] None Seen NONE SEEN [HPF] [facility] Bilirubin (U) [Mass/Vol] Negative NEGATIVE mg/dL [facility] Clarity Refractometry automated (U) Turbid Abnormal CLEAR [facility] Color (U) Yellow YELLOW [facility] Epithelial cells.non-squamous Auto (Urine sed) [#/Area] [HPF] NONE SEEN [HPF] [facility] Epithelial cells.squamous Auto (Urine sed) [#/Area] [HPF] Abnormal 3 - 5 [HPF] [facility] Glucose Auto test strip (U) [Mass/Vol] Negative NEGATIVE mg/dL [facility] Hemoglobin Auto test strip (U) [Mass/Vol] 3+ Abnormal NEGATIVE mg/dL [facility] Interpretation and review of laboratory results Abnormal [facility] Ketones (U) [Mass/Vol] Negative NEGATIVE mg/d L [facility] Mucus Auto (Urine sed) [#/Area] Rare NONE SEEN [HPF] [facility] Nitrite Auto test strip Ql (U) Negative NEGATIVE mg/dL [facility] pH (U) 6.0 [pH] 5.0 - 9.0 [facility] Protein (U) [Mass/Vol] Trace Abnormal NEGATIVE mg/d L [facility] RBC LM.HPF (Urine sed) [#/Area] INNUM Abnormal 1 - 3 [HPF] [facility] Specific gravity Refractometry automated (U) [Rel density] 1.032 1.005 - 1.030 [facility] Urobilinogen (U) [Mass/Vol] NINF - 2.0 [facility] WBC Auto (Urine sed) [#/Area] [HPF] Abnormal 1 - 3 [HPF] [facility] WBC Auto test strip (U) [#/Vol] Negative NEGATIVE [facility] UA w/ Culture reflexon 12-10 UR BACTERIA None Seen Normal NONE SEEN [facility] Comment on above: Performed By: #### L MH2911 ####[place] [address] UR MUCOUS Rare Normal NONE SEEN [facility] Comment on above: Performed By: #### L XX4972 ####[place] [address] UR NON-SQUAMOUS EPI < 1 Normal NONE SEEN [facility] Comment on above: Performed By: #### L ZU6954 ####[place] [address] UR RBC INNUM Abnormal 1-3 [facility] Comment on above: Performed By: #### L CI9705 ####[place] [address] UR SQUAMOUS EPI 21 - 50 Abnormal 3-5 [facility] Comment on above: Performed By: #### L DE7178 ####[place] [address] UR WBC 6 - 10 Abnormal 1-3 [facility] Comment on above: Performed By: #### L JI2517 ####[place] [address] UR BILIRUBIN Negative Normal NEGATIVE [facility] Comment on above: Performed By: #### L XS8331 ####[place] [address] UR BLOOD 3 + mg/dL Abnormal NEGATIVE [facility] Comment on above: Performed By: #### L ZI5481 ####[place] [address] UR CLARITY Turbid Abnormal CLEAR [facility] Comment on above: Performed By: #### L IR0183 ####[place] [address] UR COLOR Yellow Normal YELLOW [facility] Comment on above: Performed By: #### L MF3462 ####[place] [address] UR GLUCOSE Negative Normal NEGATIVE [facility] Comment on above: Performed By: #### L LL7347 ####[place] [address] UR KETONE Negative Normal NEGATIVE [facility] Comment on above: Performed By: #### L EC2422 ####[place] [address] UR LEUKOCYTE Negative Normal NEGATIVE [facility] Comment on above: Performed By: #### L UB3183 ####[place] [address] UR NITRITE Negative Normal NEGATIVE [facility] Comment on above: Performed By: #### L OL3107 ####[place] [address] UR PH 6.0 Normal 5.0-9.0 [facility] Comment on above: Performed By: #### L HW9760 ####[place] [address] UR PROTEIN Trace Abnormal NEGATIVE [facility] Comment on above: Performed By: #### L BU1754 ####[place] [address] UR SP GRAVITY 1.032 Normal 1.005-1.030 [facility] Comment on above: Performed By: #### L RK7167 ####[place] [address] UR UROBILINOGEN < 2.0 Normal <2.0 [facility] Comment on above: Performed By: #### L IG1978 ####[place] [address] US Abdomen RUQon 12-10-2024 [facility] [address] [place] [address] Radiology PATIENT NAME: Carolina Hightower MR#: [id number] PROCEDURE DATE: 12/10/2024 ROOM#: [id number] ORDERING PHYS: Miranda Mootz PROCEDURE: Right upper [...] Zimmer MD arlen TD: 12/10/2024 JOB #: [id number] Radiology Page 1 of 1 COPY [facility] Saud Pierre MD - 12/10/2024 [place] [address] Radiology PATIENT NAME: Carolina Hightower MR#: [id number] PROCEDURE DATE: 12/10/2024 ROOM#: [id number] ORDERING PHYS: Miranda Mootz PROCEDURE: Right upper [...] Zimmer MD arlen TD: 12/10/2024 JOB #: [id number] Radiology Page 1 of 1 COPY [facility] Radiology Study observation (narrative) [facility] US Abdomen RUQOrdered By: Thania Pierre on 12-10-2024 [facility] Work Phone: US RUQ ABDOMENon 12-10-2024 US RUQ ABDOMEN Normal [facility] VASCULAR PROCEDUREon 025 VASCULAR PROCEDURE Normal [facility] Vascular Procedureon 025 : Technically successful ultrasound-guided therapeutic paracentesis with aspiration of 450 cc of cloudy mike fluid. SIGNED: Ginger Milton MD 12/10/2024 9:31 AM [facility] INTERVENTIONAL RADIOLOGY REPORT PATIENT: Carolina Hightower DATE [...] provided using 1% buffered lidocaine. A 6.5 [place] non-locking Resolve pigtail catheter was advanced into the peritoneal space. 450 cc of cloudy mike fluid were obtained. The catheter was removed intact. A dry sterile dressing was applied to the puncture site. The patient tolerated the procedure well and there were no immediate complications. The patient was given no IV albumin. FINDINGS: Small amount of free peritoneal fluid/ascites. [facility] Radiology Study observation (narrative) [facility] Vascular Procedureon 025 [facility] Radiology Study observation (narrative) [facility] VASCULAR PROCEDUREon 025 VASCULAR PROCEDURE Normal [facility] VASCULAR PROCEDUREon 025 VASCULAR PROCEDURE Normal [facility] CBC w/ Differentialon 2024 Basophil Abs. 0.0 10*3/uL Normal 0.0-0.1 [facility] Comment on above: Order Comment: Rodriguez d to and read back by george cao (mercedes), at 16:04 on 11/19/2024, PJP Performed By: #### L ZK3051, EPO5462, OQM3352 ####[place] [address] Basophils/100 WBC (Bld) 0.4 % Normal 0.0-1.0 [facility] Comment on above: Order Comment: Rodriguez d to and read back by george cao (mercedes), at 16:04 on 11/19/2024, PJP Performed By: #### L IO4978, MQX5448, MWR3553 ####[place] [address] [place] [address] Differential type Auto Normal [facility] Comment on above: Order Comment: Rodriguez d to and read back by george cao (mercedes), at 16:04 on 11/19/2024, PJP Performed By: #### L UR5585, WTX3585, AQP6258 ####[facility] [address] [place] [address] Eosinophils (Bld) [#/Vol] 0.2 10*3/uL Normal 0.0-0.5 [facility] Comment on above: Order Comment: Rodriguez d to and read back by george cao (plat), at 16:04 on 11/19/2024, PJP Performed By: #### L MX0726, CPJ0533, HBR4907 ####[place] [address] Eosinophils/100 WBC (Bld) 3.7 % Normal 0.3-5.0 [facility] Comment on above: Order Comment: Rodriguez d to and read back by george cao (plat), at 16:04 on 11/19/2024, PJP Performed By: #### L BQ7236, EGB5502, XIZ8805 ####[place] [address] Erythrocyte distribution width (RBC) [Ratio] 16.5 % Normal 10.7-18.7 [facility] Comment on above: Order Comment: Rodriguez d to and read back by george cao (plat), at 16:04 on 11/19/2024, PJP Performed By: #### L MH0518, NFH1767, ZBV1703 ####[place] [address] Hematocrit (Bld) [Volume fraction] 39.7 % Normal 33.0-51.0 [facility] Comment on above: Order Comment: Rodriguez d to and read back by george cao (plat), at 16:04 on 11/19/2024, PJP Performed By: #### L FL0712, SIB1038, UCT5085 ####[place] [address] Hemoglobin (Bld) [Mass/Vol] 13.4 g/dL Normal 12.0-16.0 [facility] Comment on above: Order Comment: Rodriguez d to and read back by george cao (plat), at 16:04 on 11/19/2024, PJP Performed By: #### L QU2725, TOW7141, LSU7564 ####[place] [address] Lymphocytes (Bld) [#/Vol] 1.4 10*3/uL Normal 1.1-5.0 [facility] Comment on above: Order Comment: Rodriguez d to and read back by george cao (mercedes), at 16:04 on 11/19/2024, PJP Performed By: #### L KJ7196, ANK4240, MBI7002 ####[place] [address] Lymphocytes/100 WBC (Bld) 22.1 % Low 24.0-44.0 [facility] Comment on above: Order Comment: Rodriguez d to and read back by george cao (mercedes), at 16:04 on 11/19/2024, PJP Performed By: #### L SE9322, LNO9445, QLH2693 ####[place] [address] MCH (RBC) [Entitic mass] 31.5 pg Normal 26.0-34.0 [facility] Comment on above: Order Comment: Rodriguez d to and read back by george cao (mercedes), at 16:04 on 11/19/2024, PJP Performed By: #### L WM3582, CAP0869, IBC9007 ####[place] [address] MCHC (RBC) [Mass/Vol] 33.7 g/dL Normal 32.0-36.0 [facility] Comment on above: Order Comment: Rodriguez d to and read back by george cao (mercedes), at 16:04 on 11/19/2024, PJP Performed By: #### L MI5846, KTQ1854, LQY4463 ####[place] [address] MCV (RBC) [Entitic vol] 93.5 fL Normal 80.0-100.0 [facility] Comment on above: Order Comment: Rodriguez d to and read back by george cao (plat), at 16:04 on 11/19/2024, PJP Performed By: #### L DA1998, DSX4694, DFP7678 ####[place] [address] MDW 20.4 High 0.0-20.0 [facility] Comment on above: Order Comment: Rodriguez d to and read back by george cao (mercedes), at 16:04 on 11/19/2024, PJP Performed By: #### L KI2379, PCJ2143, CBR8080 ####[place] [address] Monocytes (Bld) [#/Vol] 0.8 10*3/uL Normal 0.0-1.4 [facility] Comment on above: Order Comment: Rodriguez d to and read back by george cao (mercedes), at 16:04 on 11/19/2024, PJP Performed By: #### L JH0339, OXN2172, ZNA3767 ####[place] [address] Monocytes/100 WBC (Bld) 11.9 % Normal 2.1-13.3 [facility] Comment on above: Order Comment: Rodriguez d to and read back by george cao (mercedes), at 16:04 on 11/19/2024, PJP Performed By: #### L BZ2391, WJU0262, IGI3187 ####[place] [address] Neutrophils, Abs. 3.9 10*3/uL Normal 1.5-8.5 [facility] Comment on above: Order Comment: Rodriugez d to and read back by george cao (mercedes), at 16:04 on 11/19/2024, PJP Performed By: #### L JY9025, AFJ1996, JIQ5980 ####[place] [address] Neutrophils/100 WBC (Bld) 61.9 % Normal 35.0-66.0 [facility] Comment on above: Order Comment: Rodriguez d to and read back by george cao (mercedes), at 16:04 on 11/19/2024, PJP Performed By: #### L RK0878, HOE1500, QGP9895 ####[place] [address] Platelet Cnt 44 10*3/uL Critically low 150-450 [facility] Comment on above: Order Comment: Rodriguez d to and read back by george cao (mercedes), at 16:04 on 11/19/2024, PJP Performed By: #### L EE1915, HVV5950, RUY8560 ####[place] [address] Platelet mean volume (Bld) [Entitic vol] 9.1 fL Normal 6.5-10.0 [facility] Comment on above: Order Comment: Rodriguez d to and read back by george cao (mercedes), at 16:04 on 11/19/2024, PJP Performed By: #### L UV7735, MOM5382, UDU7931 ####[place] [address] RBC (Bld) [#/Vol] 4.25 10*6/uL Normal 4.00-5.20 [facility] Comment on above: Order Comment: Rodriguez d to and read back by george cao (mercedes), at 16:04 on 11/19/2024, PJP Performed By: #### L CG3144, WEH0387, XUL9649 ####[place] [address] WBC (Bld) [#/Vol] 6.4 10*3/uL Normal 4.5-11.0 [facility] Comment on above: Order Comment: Rodriguez d to and read back by george cao (mercedes), at 16:04 on 11/19/2024, PJP Performed By: #### L HO1506, QRR2310, TJG0071 ####[place] [address] CBC w/Differentialon 025 Basophils (Bld) [#/Vol] 0.0 10*3/uL 0.0 - 0.1 10*3/uL [facility] Basophils/100 WBC (Bld) 0.4 % 0.0 - 1.0 % [facility] Differential cell count method Nom (Bld) Auto [facility] Eosinophils (Bld) [#/Vol] 0.2 10*3/uL 0.0 - 0.5 10*3/uL [facility] Eosinophils/100 WBC (Bld) 3.7 % 0.3 - 5.0 % [facility] Erythrocyte distribution width (RBC) [Ratio] 16.5 % 10.7 - 18.7 % [facility] Hematocrit (Bld) [Volume fraction] 39.7 % 33.0 - 51.0 % [facility] Hemoglobin (Bld) [Mass/Vol] 13.4 g/dL 12.0 - 16.0 g/dL [facility] Lymphocytes (Bld) [#/Vol] 1.4 10*3/uL 1.1 - 5.0 10*3/uL [facility] Lymphocytes/100 WBC (Bld) 22.1 % Low 24.0 - 44.0 % [facility] MCH (RBC) [Entitic mass] 31.5 pg 26.0 - 34.0 pg [facility] MCHC (RBC) [Mass/Vol] 33.7 g/dL 32.0 - 36.0 g/dL [facility] MCV (RBC) [Entitic vol] 93.5 fL 80.0 - 100.0 fL [facility] Monocyte distribution width Auto (Bld) [Entitic vol] 20.4 High 0.0 - 20.0 [facility] Monocytes (Bld) [#/Vol] 0.8 10*3/uL 0.0 - 1.4 10*3/uL [facility] Monocytes/100 WBC (Bld) 11.9 % 2.1 - 13.3 % [facility] Neutrophils (Bld) [#/Vol] 3.9 10*3/uL 1.5 - 8.5 10*3/uL [facility] Neutrophils/100 WBC (Bld) 61.9 % 35.0 - 66.0 % [facility] Platelet mean volume (Bld) [Entitic vol] 9.1 fL 6.5 - 10.0 fL [facility] Platelets (Bld) [#/Vol] 44 10*3/uL Critically low 150 - 450 10*3/uL [facility] RBC (Bld) [#/Vol] 4.25 10*6/uL 4.00 - 5.2 0 10*6/uL [facility] WBC (Bld) [#/Vol] 6.4 10*3/uL 4.5 - 11.0 10*3/uL [facility] Called to and read b ack by george cao (mercedes), at 16:04 on 11/19/2024, JOANP [facility] COMPREHENSIVE METABOLIC PANE [place] 11-19-2024 Albumin [Mass/Vol] 3.0 g/dL Low 3.2-5.0 [facility] Comment on above: Performed By: #### L QW4466, UNT0833, ZRV8157 ####[place] [address] Albumin/Globulin [Mass ratio] 0.9 {ratio} Normal [facility] Comment on above: Performed By: #### L EA3411, EWL9178, TOE2258 ####[place] [address] ALP [Catalytic activity/Vol] 140 U/L High 42-121 [facility] Comment on above: Performed By: #### L VB4966, VOY0518, UQK9461 ####[place] [address] ALT [Catalytic activity/Vol] 48 U/L Normal 10-60 [facility] Comment on above: Performed By: #### L JK1920, VLE0747, ONJ3493 ####[facility] [address] [place] [address] Anion gap [Moles/Vol] 3 mmol/L Normal [facility] Comment on above: Performed By: #### L OV2742, ERQ7674, ZPW8995 ####[facility] [address] [place] [address] AST [Catalytic activity/Vol] 68 U/L High 10-42 [facility] Comment on above: Performed By: #### L GV9348, BSR5100, MBX5066 ####[place] [address] [place] [address] B/C 16 Normal 10-20 [facility] Comment on above: Performed By: #### L RK1124, LJU9883, JCM5318 ####[place] [address] Bilirubin.direct [Mass/Vol] 1.8 mg/dL High 0.2-1.0 [facility] Comment on above: Performed By: #### L OR2433, ZJA1604, KHH6293 ####[place] [address] Calcium [Mass/Vol] 7.9 mg/dL Low 8.5-10.5 [facility] Comment on above: Performed By: #### L XZ8289, OUA1630, OUX6124 ####[place] [address] Chloride [Moles/Vol] 109 mmol/L Normal 101-111 [facility] Comment on above: Performed By: #### L EK3636, CVO4564, OUH9064 ####[place] [address] CO2 [Moles/Vol] 24 mmol/L Normal 21-31 [facility] Comment on above: Performed By: #### L YB1239, OZU3329, KPZ5903 ####[place] [address] Creatinine [Mass/Vol] 1.2 mg/dL High 0.4-1.0 [facility] Comment on above: Performed By: #### L EK1774, EDW9976, AOF2957 ####[place] [address] GFR/1.73 sq M.predicted MDRD (S/P/Bld) [Vol rate/Area] 47 mL/min/{1.73_m2} Normal [facility] Comment on above: *The estimated Glome rular [...] mL/min or less Performed By: #### L ZM3267, HPD1088, XCB4643 ####[place] [address] [address] Glucose [Mass/Vol] 112 mg/dL High 70-110 [facility] Comment on above: Performed By: #### Mustapha FG5204, RWE3853, JIO2876 ####[place] [address] Osmolality [Osmolality] 275 mosm/kg Normal 266-309 [facility] Comment on above: Performed By: #### Mustapha OS5470, FSM9610, SFG8160 ####BABAT[place] [address] [address] Potassium [Moles/Vol] 4.1 mmol/L Normal 3.6-5.0 [facility] Comment on above: Performed By: #### L GN0900, IUL7837, RKQ9367 ####BABAT[place] [address] [address] Protein [Mass/Vol] 6.2 g/dL Normal 6.1-7.8 [facility] Comment on above: Performed By: #### L AV0304, UYR7375, DGZ7795 ####BABAT[place] [address] [address] Sodium [Moles/Vol] 136 mmol/L Normal 135-145 [facility] Comment on above: Performed By: #### L AD5045, MTS7894, MPV3766 ####[facility] [address] [place] [address] Urea nitrogen [Mass/Vol] 19 mg/dL Normal 2-32 [facility] Comment on above: Performed By: #### L VO0227, UPI7393, BWT7823 ####[facility] [address] [place] [address] Comprehensive Metabolic Pane merritt 11-19-2024 Bilirubin [Mass/Vol] 1.8 mg/dL High 0.2 - 1 .0 mg/dL [facility] Osmolality Calc [Osmolality] 275 266 - 309 [facility] Urea nitrogen/Creatinine [Mass ratio] 16 mg/mg 10 - 20 [facility] No Panel Informationon 11-19 Interpretation and review of laboratory results Abnormal [facility] PROCALCITONIN, Son PROCALCITONIN, S 0.14 ng/mL Normal [facility] Comment on above: Result Comment: . <0 [...] or septic shock. Performed By: #### L DL9506, SNP5988, NMV5373 ####[place] [address] [place] [address] Procalcitonin, QN, Son 11-19 Procalcitonin [Mass/Vol] 0.14 ng/mL [facility] Comment on above: . <0.05 ng/mL Healthy [...] LATERALon XR CHEST PA AND LATERAL Normal [facility] [place] [address] Radiology PATIENT NAME: Carolina Hightower MR#: [id number] PROCEDURE DATE: 11/19/2024 ROOM#: LTX ORDERING PHYS: [...] Greene MD gs TD: 11/19/2024 JOB #: [id number] Radiology Page 1 of 1 COPY [facility] Terry Thomas MD - 11/19/2024 [place] [address] Radiology PATIENT NAME: Carolina Hightwoer MR#: [id number] PROCEDURE DATE: 11/19/2024 ROOM#: LTX ORDERING PHYS: [...] Greene MD gs TD: 11/19/2024 JOB #: [id number] Radiology Page 1 of 1 COPY [facility] Radiology Study observation (narrative) [facility] XR Chest PA and LateralOrder ed By: Terry Thomas on 11-19-2024 [facility] Work Phone: URINE CULTUREon 11-13-2024 Bacteria identified Cx Nom (U) Bacteria identified in Urine by Culture URINE CULTURE: No significant growth. Normal [facility] Comment on above: Performed By: #### L GH4422 ####[place] [address] CBC w/ Differentialon 2024 Basophil Abs. 0.0 10*3/uL Normal 0.0-0.1 [facility] Comment on above: Order Comment: Rodriguez d to and read back by PLT rechecked and read back by Judie Jacobs, at12:57 on 11/08/2024, EDB Performed By: #### L RD8716, OGA5772, MNU4655, NGT6476, USR9738, LXT6948 ####[place] [address] Basophils/100 WBC (Bld) 0.4 % Normal 0.0-1.0 [facility] Comment on above: Order Comment: Rodriguez d to and read back by PLT rechecked and read back by Judie Jacobs, at12:57 on 11/08/2024, EDB Performed By: #### L EL1905, HTU4183, WHW3198, MHW5485, VZW5954, TTI7653 ####BABAT[place] [address] [address] Differential type Auto Normal [facility] Comment on above: Order Comment: Rodriguez d to and read back by PLT rechecked and read back by Judie Jacobs, at12:57 on 11/08/2024, EDB Performed By: #### L KG5370, SJX2445, KES5669, VBY8334, EOO4404, RQK1678 ####[facility] [address] [place] [address] Eosinophils (Bld) [#/Vol] 0.3 10*3/uL Normal 0.0-0.5 [facility] Comment on above: Order Comment: Rodriguez d to and read back by PLT rechecked and read back by Judie Jacobs, at12:57 on 11/08/2024, EDB Performed By: #### L EU8697, SDJ8428, NLH3755, FWI0741, ZCQ4431, HZE7172 ####BABAT[place]DE [address] [address] Eosinophils/100 WBC (Bld) 5.0 % Normal 0.3-5.0 [facility] Comment on above: Order Comment: Rodriguez d to and read back by PLT rechecked and read back by Judie Jacobs, at12:57 on 11/08/2024, EDB Performed By: #### L BD3930, JTX0633, GKB1447, DWY7991, NZD2420, NZK9528 ####[place] [address] Erythrocyte distribution width (RBC) [Ratio] 16.0 % Normal 10.7-18.7 [facility] Comment on above: Order Comment: Rodriguez d to and read back by PLT rechecked and read back by Judie Jacobs, at12:57 on 11/08/2024, EDB Performed By: #### L NN9273, DHE8070, GQJ1808, OKM9970, EBL2884, PTU2150 ####[place] [address] Hematocrit (Bld) [Volume fraction] 41.7 % Normal 33.0-51.0 [facility] Comment on above: Order Comment: Rodriguez d to and read back by PLT rechecked and read back by Judie Jacobs, at12:57 on 11/08/2024, EDB Performed By: #### L MF0944, DHZ2119, VMW8343, XFX4958, CVA6793, RNR2900 ####BABATUNDE [address] [address] Hemoglobin (Bld) [Mass/Vol] 14.0 g/dL Normal 12.0-16.0 [facility] Comment on above: Order Comment: Rodriguez d to and read back by PLT rechecked and read back by Judie Jacobs, at12:57 on 11/08/2024, EDB Performed By: #### L HF6897, RQC4389, LOM7259, GDM5498, DCO0638, MSD2438 ####[place] [address] Lymphocytes (Bld) [#/Vol] 1.0 10*3/uL Low 1.1-5.0 [facility] Comment on above: Order Comment: Rodriguez d to and read back by PLT rechecked and read back by Judie Jacobs, at12:57 on 11/08/2024, EDB Performed By: #### L II5736, WGZ0916, DFJ3326, RHL0842, HXU2748, KRT4854 ####[place] [address] Lymphocytes/100 WBC (Bld) 20.2 % Low 24.0-44.0 [facility] Comment on above: Order Comment: Rodriguez d to and read back by PLT rechecked and read back by Judie Jacobs, at12:57 on 11/08/2024, EDB Performed By: #### L TN0754, EWI3247, DJH3353, SGQ1768, LWG9927, IZR9173 ####[place] [address] MCH (RBC) [Entitic mass] 32.4 pg Normal 26.0-34.0 [facility] Comment on above: Order Comment: Rodriguez d to and read back by PLT rechecked and read back by Judie Jacobs, at12:57 on 11/08/2024, EDB Performed By: #### L SO1549, VVQ0891, VWJ0079, ARD2348, RZD0785, AFN7807 ####BABATUNDE [address] [address] MCHC (RBC) [Mass/Vol] 33.5 g/dL Normal 32.0-36.0 [facility] Comment on above: Order Comment: Rodriguez d to and read back by PLT rechecked and read back by Judie Jacobs, at12:57 on 11/08/2024, EDB Performed By: #### L ZJ1689, NYT8667, KBJ6379, JML1481, PUN8214, ESD2566 ####BABATUNDE [address] [address] MCV (RBC) [Entitic vol] 96.8 fL Normal 80.0-100.0 [facility] Comment on above: Order Comment: Rodriguez d to and read back by PLT rechecked and read back by Judie Jacobs, at12:57 on 11/08/2024, EDB Performed By: #### L OL5004, UKJ5639, SHT9027, GAD9245, POA6855, IAO8545 ####BABATUNDE [address] [address] Monocytes (Bld) [#/Vol] 0.6 10*3/uL Normal 0.0-1.4 [facility] Comment on above: Order Comment: Rodriguez d to and read back by PLT rechecked and read back by Judie Jacobs, at12:57 on 11/08/2024, EDB Performed By: #### L CE2820, UKN7575, GSV2262, GJC1288, SZV5411, OWR5495 ####BABATUNDE [address] [address] Monocytes/100 WBC (Bld) 10.7 % Normal 2.1-13.3 [facility] Comment on above: Order Comment: Rodriguez d to and read back by PLT rechecked and read back by Judie Jacobs, at12:57 on 11/08/2024, EDB Performed By: #### L JS0578, EOG2025, LGY8404, CWQ7887, SCT6419, XZQ2661 ####BABATUNDE [address] [address] Neutrophils, Abs. 3.3 10*3/uL Normal 1.5-8.5 [facility] Comment on above: Order Comment: Rodriguez d to and read back by PLT rechecked and read back by Judie Jacobs, at12:57 on 11/08/2024, EDB Performed By: #### L KJ4871, YCF3135, HHE2309, UCC5214, MUF4040, KWE7023 ####[place] [address] Neutrophils/100 WBC (Bld) 63.7 % Normal 35.0-66.0 [facility] Comment on above: Order Comment: Rodriguez d to and read back by PLT rechecked and read back by Judie Jacobs, at12:57 on 11/08/2024, EDB Performed By: #### L GN3470, MXD2856, GHG7195, MDV1137, GXL5987, PIF3455 ####[place] [address] Platelet Cnt 43 10*3/uL Critically low 150-450 [facility] Comment on above: Order Comment: Rodriguez d to and read back by PLT rechecked and read back by Judie Jacobs, at12:57 on 11/08/2024, EDB Performed By: #### L RD4804, XLM0831, JZH4407, LWB4034, XQB7038, JJV5455 ####[place] [address] Platelet mean volume (Bld) [Entitic vol] 9.6 fL Normal 6.5-10.0 [facility] Comment on above: Order Comment: Rodriguez d to and read back by PLT rechecked and read back by Judie Jacobs, at12:57 on 11/08/2024, EDB Performed By: #### L GO0332, MZO9625, GZZ1566, QFR6882, BGJ9283, NVL4617 ####[place] [address] RBC (Bld) [#/Vol] 4.31 10*6/uL Normal 4.00-5.20 [facility] Comment on above: Order Comment: Rodriguez d to and read back by PLT rechecked and read back by Judie Jacobs, at12:57 on 11/08/2024, EDB Performed By: #### L SB6853, JBZ7535, GHW9657, YGQ7447, FPJ7193, TIR2004 ####[address] [address] WBC (Bld) [#/Vol] 5.1 10*3/uL Normal 4.5-11.0 [facility] Comment on above: Order Comment: Nichole connelly to and read back by PLT rechecked and read back by Judie Jacobs at12:57 on 11/08/2024, EDB Performed By: #### L BB9359, PZU9619, ZWW0700, NBL1221, IFT6264, SCQ7232 ####[place] [address] FERRITINon 11-08-2024 Ferritin [Mass/Vol] 75.4 ng/mL Normal 11.0-306.8 [facility] Comment on above: Performed By: #### L QY2671, KUB9390, WQV9945, YUP6743, OWT5604, BJD3253 ####[place] [address] FOLATESon 11-08-2024 FOLATES > 20.0 Normal >5.21 [facility] Comment on above: Performed By: #### L MU1060, YHU2395, RTD4597, YXU7330, JAK5161, SKR8136 ####[place] [address] IRON AND TOTAL IRON BINDING CAPACITYon 11-08-2024 % SATURATION 63 % High 15-55 [facility] Comment on above: Performed By: #### L EX6733, REO0369, WMY2697, EFR0459, PID3423, UWI3104 ####[place] [address] Iron [Mass/Vol] 198 ug/dL High 40-150 [facility] Comment on above: Performed By: #### L CU1797, PSW8611, GTU0865, XWU5072, LHE9597, PZO1634 ####[place] [address] IRON BIND. CAP.,TOT 315 ug/dL Normal 250-400 [facility] Comment on above: Performed By: #### L QA6478, JYU3140, MXA2872, BUO4704, ATJ9777, CXT8181 ####[place] [address] Transferrin [Mass/Vol] 225.00 mg/dL Normal 192.00-382. 00 [facility] Comment on above: Performed By: #### L LA2253, QPD3696, ZVN7099, PCO4825, BND4083, YDD4686 ####[place] [address] UIBC 117 ug/dL Low 150-375 [facility] Comment on above: Performed By: #### L WJ6087, LMW6537, DUO1717, AAK2104, XTH7846, NES7311 ####[place] [address] PT INRon 11-08-2024 INR Coag (PPP) [Relative time] 1.5 {INR} High 0.9-1.1 [facility] Comment on above: Result Comment: CORRIE Luciano OF THERAPY INDICATIONS TARGET INR RANGESTANDARD DOSE TREATMENT OF VENOUS THROMBOSIS 2.0-3.0 TREATMENT OF PULMONARY EMBOLUS PROPHYLAXIS AGAINST VENOUS THROMBOSIS BY SYSTEMIC EMBOLIZATION .HIGH DOSE HIGH RISK PATIENTS WITH 2.5-3.5 MECHANICAL HEART VALVES Performed By: #### L YD5966, NIL1336, SLP8530, IPZ1115, EJD0464, VSD2819 ####[place] [address] PT Coag (PPP) [Time] 17.9 s High 10.1-13.7 [facility] Comment on above: Performed By: #### L QQ3782, GJF8625, OWJ0165, HZZ0100, JIM7185, EZJ7011 ####[place] [address] VITAMIN B12on 11-08-2024 VITAMIN B12 1,023 pg/mL High 180-914 [facility] Comment on above: Performed By: #### L FX9846, DTM5881, GKR2769, JAF5440, TDJ7340, IAU5623 ####[place] [address] VASCULAR PROCEDUREon 025 VASCULAR PROCEDURE Normal [facility] URINE CULTUREon 10-17-2024 Bacteria identified Cx Nom (U) Bacteria identified in Urine by Culture URINE CULTURE: COLONY COUNT: 10-100K cfu/ml Mixed Skin Kelsea. 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] 11/20/2023 Encounter Status:Closed by ИВАН RHODESSSICA on 10/15/24 Normal [facility] VASCULAR PROCEDUREon 025 VASCULAR PROCEDURE Normal [facility] CNPNon 10-10-2024 CNPN Telephone (GSTNOR) CAROLINA HIGHTOWER ([id number]) 1975 F Date Time Provider Department 10/10/24 JAMES HENDRIX GSTNOR During your visit today, we recorded the following information about you: RhodesKaylin 10/10/2024 11:31 AM Signed Called pt to notify her we received a denial from [facility] regarding her visit here on 10/24, so we need to cancel NOE iverson to call me back Allergies As of [...] Status:Closed by KAYLIN RHODES on 10/10/24 Normal [facility] CBC w/ Differentialon 2024 Basophil Abs. 0.0 10*3/uL Normal 0.0-0.1 [facility] Comment on above: Order Comment: Rodriguez d to and read back by jacyk dumont (ed), at 08:37 on 10/04/2024, MHE Performed By: #### L LI2025, AER9924 ####[place] [address] Basophils/100 WBC (Bld) 0.6 % Normal 0.0-1.0 [facility] Comment on above: Order Comment: Rodriguez d to and read back by jacky dumont (ed), at 08:37 on 10/04/2024, MHE Performed By: #### L AU1823, TAH1794 ####[place] [address] Differential type Auto Normal [facility] Comment on above: Order Comment: Rodriguez d to and read back by jacky dumont (ed), at 08:37 on 10/04/2024, MHE Performed By: #### L PT9316, WTF0220 ####[place] [address] Eosinophils (Bld) [#/Vol] 0.2 10*3/uL Normal 0.0-0.5 [facility] Comment on above: Order Comment: Rodriguez d to and read back by jacky dumont (ed), at 08:37 on 10/04/2024, [facility] Performed By: #### L [id number], [id number] ####[address] [address] Eosinophils/100 WBC (Bld) 4.9 % Normal 0.3-5.0 [facility] Comment on above: Order Comment: Rodriguez d to and read back by jacky dumont (ed), at 08:37 on 10/04/2024, [facility] Performed By: #### L [id number], [id number] ####[place] [address] Erythrocyte distribution width (RBC) [Ratio] 16.6 % Normal 10.7-18.7 [facility] Comment on above: Order Comment: Rodriguez d to and read back by jacky dumont (ed), at 08:37 on 10/04/2024, [facility] Performed By: #### L [id number], [id number] ####[place] [address] Hematocrit (Bld) [Volume fraction] 38.4 % Normal 33.0-51.0 [facility] Comment on above: Order Comment: Rodriguez d to and read back by jacky dumont (ed), at 08:37 on 10/04/2024, [facility] Performed By: #### L [id number], [id number] ####[place] [address] Hemoglobin (Bld) [Mass/Vol] 12.5 g/dL Normal 12.0-16.0 [facility] Comment on above: Order Comment: Rodriguez d to and read back by jacky dumont (ed), at 08:37 on 10/04/2024, [facility] Performed By: #### L [id number], [id number] ####[place] [address] Lymphocytes (Bld) [#/Vol] 0.8 10*3/uL Low 1.1-5.0 [facility] Comment on above: Order Comment: Rodriguez d to and read back by jacky dumont (ed), at 08:37 on 10/04/2024, [facility] Performed By: #### L [id number], [id number] ####[place] [address] Lymphocytes/100 WBC (Bld) 17.2 % Low 24.0-44.0 [facility] Comment on above: Order Comment: Rodriguez d to and read back by jacky dumont (ed), at 08:37 on 10/04/2024, [facility] Performed By: #### L [id number], [id number] ####[place] [address] MCH (RBC) [Entitic mass] 32.0 pg Normal 26.0-34.0 [facility] Comment on above: Order Comment: Rodriguez d to and read back by jacky dumont (ed), at 08:37 on 10/04/2024, [facility] Performed By: #### L [id number], [id number] ####[place] [address] MCHC (RBC) [Mass/Vol] 32.6 g/dL Normal 32.0-36.0 [facility] Comment on above: Order Comment: Rodriguez d to and read back by jacky dumont (ed), at 08:37 on 10/04/2024, MHE Performed By: #### L RZ3163, VSN0016 ####[place] [address] MCV (RBC) [Entitic vol] 98.3 fL Normal 80.0-100.0 [facility] Comment on above: Order Comment: Rodriguez d to and read back by jacky dumont (ed), at 08:37 on 10/04/2024, MHE Performed By: #### L NT5677, MNY0921 ####[place] [address] Monocytes (Bld) [#/Vol] 0.3 10*3/uL Normal 0.0-1.4 [facility] Comment on above: Order Comment: Rodriguez d to and read back by jacky dumont (ed), at 08:37 on 10/04/2024, MHE Performed By: #### L RF3266, LGM9840 ####[place] [address] Monocytes/100 WBC (Bld) 6.9 % Normal 2.1-13.3 [facility] Comment on above: Order Comment: Rodriguez d to and read back by jacky dumont (ed), at 08:37 on 10/04/2024, MHE Performed By: #### L DL5970, UXS1355 ####[place] [address] Neutrophils, Abs. 3.4 10*3/uL Normal 1.5-8.5 [facility] Comment on above: Order Comment: Rodriguez d to and read back by jacky dumont (ed), at 08:37 on 10/04/2024, MHE Performed By: #### L SJ5330, RRO3228 ####[place] [address] Neutrophils/100 WBC (Bld) 70.4 % High 35.0-66.0 [facility] Comment on above: Order Comment: Rodriguez d to and read back by jacky dumont (ed), at 08:37 on 10/04/2024, MHE Performed By: #### L WG1729, DQZ9812 ####[place] [address] Platelet Cnt 43 10*3/uL Critically low 150-450 [facility] Comment on above: Order Comment: Rodriguez d to and read back by jacky dumont (ed), at 08:37 on 10/04/2024, MHE Performed By: #### L CN1724, PWK9640 ####[place] [address] Platelet mean volume (Bld) [Entitic vol] 9.9 fL Normal 6.5-10.0 [facility] Comment on above: Order Comment: Rodriguez d to and read back by jacky dumont (ed), at 08:37 on 10/04/2024, MHE Performed By: #### L JW4215, RRX5118 ####[place] [address] RBC (Bld) [#/Vol] 3.91 10*6/uL Low 4.00-5.20 [facility] Comment on above: Order Comment: Rodriguez d to and read back by jacky dumont (ed), at 08:37 on 10/04/2024, MHE Performed By: #### L YO2919, PIF2272 ####[facility] [address] [place] [address] WBC (Bld) [#/Vol] 4.8 10*3/uL Normal 4.5-11.0 [facility] Comment on above: Order Comment: Rodriguez d to and read back by jacky dumont (ed), at 08:37 on 10/04/2024, MHE Performed By: #### L ZV7488, UEV5813 ####[facility] [address] [place] [address] CBC w/Differentialon 025 Basophils (Bld) [#/Vol] 0.0 10*3/uL 0.0 - 0.1 10*3/uL [facility] Basophils/100 WBC (Bld) 0.6 % 0.0 - 1.0 % [facility] Differential cell count method Nom (Bld) Auto [facility] Eosinophils (Bld) [#/Vol] 0.2 10*3/uL 0.0 - 0.5 10*3/uL [facility] Eosinophils/100 WBC (Bld) 4.9 % 0.3 - 5.0 % [facility] Erythrocyte distribution width (RBC) [Ratio] 16.6 % 10.7 - 18.7 % [facility] Hematocrit (Bld) [Volume fraction] 38.4 % 33.0 - 51.0 % [facility] Hemoglobin (Bld) [Mass/Vol] 12.5 g/dL 12.0 - 16.0 g/dL [facility] Interpretation and review of laboratory results Abnormal [facility] Lymphocytes (Bld) [#/Vol] 0.8 10*3/uL Low 1.1 - 5.0 10*3/uL [facility] Lymphocytes/100 WBC (Bld) 17.2 % Low 24.0 - 44.0 % [facility] MCH (RBC) [Entitic mass] 32.0 pg 26.0 - 34.0 pg [facility] MCHC (RBC) [Mass/Vol] 32.6 g/dL 32.0 - 36.0 g/dL [facility] MCV (RBC) [Entitic vol] 98.3 fL 80.0 - 100.0 fL [facility] Monocytes (Bld) [#/Vol] 0.3 10*3/uL 0.0 - 1.4 10*3/uL [facility] Monocytes/100 WBC (Bld) 6.9 % 2.1 - 13.3 % [facility] Neutrophils (Bld) [#/Vol] 3.4 10*3/uL 1.5 - 8.5 10*3/uL [facility] Neutrophils/100 WBC (Bld) 70.4 % High 35.0 - 66.0 % [facility] Platelet mean volume (Bld) [Entitic vol] 9.9 fL 6.5 - 10.0 fL [facility] Platelets (Bld) [#/Vol] 43 10*3/uL Critically low 150 - 450 10*3/uL [facility] RBC (Bld) [#/Vol] 3.91 10*6/uL Low 4.00 - 5.2 0 10*6/uL [facility] WBC (Bld) [#/Vol] 4.8 10*3/uL 4.5 - 11.0 10*3/uL [facility] Called to and read b ack by jacky dumont (ed), at 08:37 on 10/04/2024, E [facility] LAB [facility] COMPREHENSIVE METABOLIC PANE [place] 10-04-2024 Albumin [Mass/Vol] 2.8 g/dL Low 3.2-5.0 [facility] Comment on above: Performed By: #### L BK7070, FKP3022 ####[facility] [place] [address] Albumin/Globulin [Mass ratio] 0.8 {ratio} Normal [facility] Comment on above: Performed By: #### L BP0733, GSM5556 ####[place] [address] ALP [Catalytic activity/Vol] 133 U/L High 42-121 [facility] Comment on above: Performed By: #### L IB3480, ATL2700 ####[place] [address] ALT [Catalytic activity/Vol] 66 U/L High 10-60 [facility] Comment on above: Performed By: #### L OK0453, YCO1989 ####[place] [address] Anion gap [Moles/Vol] 4 mmol/L Normal [facility] Comment on above: Performed By: #### L YR7259, AXU5223 ####[place] [address] AST [Catalytic activity/Vol] 105 U/L High 10-42 [facility] Comment on above: Performed By: #### L ZP6080, AWJ5595 ####[place] [address] B/C 8 Low 10-20 [facility] Comment on above: Performed By: #### L LN8779, JMF0672 ####[place] [address] Bilirubin.direct [Mass/Vol] 1.8 mg/dL High 0.2-1.0 [facility] Comment on above: Performed By: #### L DX6992, BEI1612 ####[place] [address] Calcium [Mass/Vol] 8.7 mg/dL Normal 8.5-10.5 [facility] Comment on above: Performed By: #### L SG6230, WQR0136 ####[place] [address] Chloride [Moles/Vol] 110 mmol/L Normal 101-111 [facility] Comment on above: Performed By: #### L PJ5519, EPL2626 ####[place] [address] [place] [address] CO2 [Moles/Vol] 19 mmol/L Low 21-31 [facility] Comment on above: Performed By: #### L FE5083, IEP4488 ####BABATUNDE [address] [address] Creatinine [Mass/Vol] 1.1 mg/dL High 0.4-1.0 [facility] Comment on above: Performed By: #### L HX0191, SZL8475 ####BABATUNDE [address] [address] GFR/1.73 sq M.predicted MDRD (S/P/Bld) [Vol rate/Area] 52 mL/min/{1.73_m2} Normal [facility] Comment on above: *The estimated Glome rular [...] mL/min or less Performed By: #### L CZ7567, MDP0231 ####BABATUNDE [address] [address] Glucose [Mass/Vol] 190 mg/dL High 70-110 [facility] Comment on above: Performed By: #### L LE8586, QUQ3624 ####BABAT[place] [id number] [place] [address] Osmolality [Osmolality] 270 mosm/kg Normal 266-309 [facility] Comment on above: Performed By: #### L HB2462, WDR6715 ####[place] [address] [place] [address] Potassium [Moles/Vol] 4.0 mmol/L Normal 3.6-5.0 [facility] Comment on above: Performed By: #### L SQ8040, UTE8272 ####[place] [address] [place] [address] Protein [Mass/Vol] 6.5 g/dL Normal 6.1-7.8 [facility] Comment on above: Performed By: #### L MI1957, AEA2135 ####[place] [address] [place] [address] Sodium [Moles/Vol] 133 mmol/L Low 135-145 [facility] Comment on above: Performed By: #### L CB3938, EHJ8970 ####[place] [address] Urea nitrogen [Mass/Vol] 9 mg/dL Normal 2-32 [facility] Comment on above: Performed By: #### L VH7684, ZDF9103 ####[place] [address] [place] [address] Comprehensive Metabolic Pane [place]itt 10-04-2024 Bilirubin [Mass/Vol] 1.8 mg/dL High 0.2 - 1 .0 mg/dL [facility] Interpretation and review of laboratory results Abnormal [facility] Osmolality Calc [Osmolality] 270 266 - 309 [facility] Urea nitrogen/Creatinine [Mass ratio] 8 mg/mg Low 10 - 20 [facility] LIPASEon 10-04-2024 Lipase [Catalytic activity/Vol] 53 U/L Normal 11-82 [facility] Comment on above: Performed By: #### L HS9640 ####[place] [address] Lipaseon 10-04-2024 Lipase [Catalytic activity/Vol] 53 U/L 11 - 82 U/L [facility] XR Abdomen Supine and Uprigh ton 10-04-2024 [facility] [address] [place] [address] Radiology PATIENT NAME: Carolina Hightower MR#: [id number] PROCEDURE DATE: 10/04/2024 ROOM#: [id number] ORDERING PHYS: [...] Zimmer MD jp TD: 10/04/2024 JOB #: [id number] Radiology Page 1 of 1 COPY [facility] Saud Pierre MD - 10/04/2024 [facility] [address] [place] [address] Radiology PATIENT NAME: Carolina Hightower MR#: [id number] PROCEDURE DATE: 10/04/2024 ROOM#: [id number] ORDERING PHYS: [...] Zimmer MD jp TD: 10/04/2024 JOB #: [id number] Radiology Page 1 of 1 COPY [facility] Radiology Study observation (narrative) [facility] XR Abdomen Supine and Uprigh tOrdered By: Saud Pierre on 10-04-2024 [facility] Work Phone: XR KUB FLAT AND UPRIGHTon XR KUB FLAT AND UPRIGHT Normal [facility] Vascular Procedureon 025 [facility] Radiology Study observation (narrative) [facility] 12 Lead EKG - ED (Initial EK G)on 09-28-2024 [facility] ED Test Date: 2024-09-28 Pat Name: CAROLINA HIGHTOWER Department: EMERGENCY DEPARTMENT Room: Gender: Female Medical Practice Manager: Ambreen powell : 1975 Requested By: PETE PONCE Order Number: [id number] Reading MD: Anjelica Bonilla MD Measurements Intervals [place] Rate: 61 P: 59 FL: 182 QRS: 24 QRSD: 90 T: 38 QT: 442 QTc: 447 Interpretive Statements SINUS RHYTHM No previous ECG available for comparison Electronically Signed On 09-28-2024 11:20:04 EST by Anjelica Sterling MD, MD - 09/28/2024 [facility] ED Test Date: 2024-09-28 Pat Name: CAROLINA HIGHTOWER Department: EMERGENCY DEPARTMENT Room: Gender: Female Medical Practice Manager: Ambreen powell : 1975 Requested By: PETE PONCE Order Number: [id number] Reading MD: Anjelica Bonilla MD Measurements Intervals [place] Rate: 61 P: 59 FL: 182 QRS: 24 QRSD: 90 T: 38 QT: 442 QTc: 447 Interpretive Statements SINUS RHYTHM No previous ECG available for comparison Electronically Signed On 09-28-2024 11:20:04 EST by Anjelica Bonilla MD [facility] 12 Lead EKG - ED (Initial EK G)Ordered By: Anjelica Bonilla on 09-28-2024 [facility] Work Phone: AMMONIAon 09-28-2024 Ammonia (P) [Moles/Vol] 63 umol/L High 11-50 [facility] Comment on above: Order Comment: Colle ction has been rescheduled by RMM at 09/28/2024 11:10 Reason: noanswer Performed By: #### L FO4169, XSN8923, GFG7573, YRX8463 ####[facility] [place] [address] Ammoniaon 09-28-2024 Interpretation and review of laboratory results Abnormal [facility] CBC w/ Differentialon 2024 Basophil Abs. 0.0 10*3/uL Normal 0.0-0.1 [facility] Comment on above: Order Comment: Rodriguez d to and read back by JAKOB DUMONT (ed), at 11:48 on 09/28/2024, MHECollection has been rescheduled by RM at 09/28/2024 11:10 Reason: noanswer Performed By: #### L AN2215, YSW0844, VKT6854, OCR4085 ####[place] [address] Basophils/100 WBC (Bld) 0.5 % Normal 0.0-1.0 [facility] Comment on above: Order Comment: Rodriguez d to and read back by JAKOB DUMONT (ed), at 11:48 on 09/28/2024, MHECollection has been rescheduled by [facility] at 09/28/2024 11:10 Reason: noanswer Performed By: #### L AF1868, MSE6665, DHV4270, DZA5108 ####[place] [address] Differential type Auto Normal [facility] Comment on above: Order Comment: Rodriguez d to and read back by JAKOB DUMONT (ed), at 11:48 on 09/28/2024, MHECollection has been rescheduled by [facility] at 09/28/2024 11:10 Reason: noanswer Performed By: #### L JP6457, FZU8560, TGU8169, WZR5469 ####[place] [address] Eosinophils (Bld) [#/Vol] 0.2 10*3/uL Normal 0.0-0.5 [facility] Comment on above: Order Comment: Rodriguez d to and read back by JAKOB DUMONT (ed), at 11:48 on 09/28/2024, MHECollection has been rescheduled by RMM at 09/28/2024 11:10 Reason: noanswer Performed By: #### L UA0582, VTB6247, CMT2607, DGH6065 ####[id number] [place] [address] Eosinophils/100 WBC (Bld) 3.7 % Normal 0.3-5.0 [facility] Comment on above: Order Comment: Rodriguez d to and read back by JAKOB DUMONT (ed), at 11:48 on 09/28/2024, MHECollection has been rescheduled by RMM at 09/28/2024 11:10 Reason: noanswer Performed By: #### L RG4354, SFW7436, IKK9661, ONX2371 ####[address] [address] Erythrocyte distribution width (RBC) [Ratio] 16.5 % Normal 10.7-18.7 [facility] Comment on above: Order Comment: Rodriguez d to and read back by JAKOB DUMONT (ed), at 11:48 on 09/28/2024, MHECollection has been rescheduled by RMM at 09/28/2024 11:10 Reason: noanswer Performed By: #### L MD3582, IOG3150, GYI4516, QOU0953 ####[address] [address] Hematocrit (Bld) [Volume fraction] 38.1 % Normal 33.0-51.0 [facility] Comment on above: Order Comment: Rodriguez d to and read back by JAKOB DUMONT (ed), at 11:48 on 09/28/2024, MHECollection has been rescheduled by RM at 09/28/2024 11:10 Reason: noanswer Performed By: #### L KZ4405, JMX3598, IJP3964, OJC2564 ####[address] [address] Hemoglobin (Bld) [Mass/Vol] 12.7 g/dL Normal 12.0-16.0 [facility] Comment on above: Order Comment: Rodriguez d to and read back by JAKOB DUMONT (ed), at 11:48 on 09/28/2024, MHECollection has been rescheduled by RMM at 09/28/2024 11:10 Reason: noanswer Performed By: #### L RE2358, QUV2868, MMJ7775, XEG3074 ####[place] [address] Lymphocytes (Bld) [#/Vol] 0.7 10*3/uL Low 1.1-5.0 [facility] Comment on above: Order Comment: Rodriguez d to and read back by JAKOB DUMONT (ed), at 11:48 on 09/28/2024, MHECollection has been rescheduled by RMM at 09/28/2024 11:10 Reason: noanswer Performed By: #### L IA3943, EAC2923, QWV3811, WKK8014 ####[place] [address] Lymphocytes/100 WBC (Bld) 13.8 % Low 24.0-44.0 [facility] Comment on above: Order Comment: Rodriguez d to and read back by JAKOB DUMONT (ed), at 11:48 on 09/28/2024, MHECollection has been rescheduled by RMM at 09/28/2024 11:10 Reason: noanswer Performed By: #### L ZE6503, LUN0637, XBE5296, BZE2809 ####[place] [address] MCH (RBC) [Entitic mass] 32.5 pg Normal 26.0-34.0 [facility] Comment on above: Order Comment: Rodriguez d to and read back by JAKOB DUMONT (ed), at 11:48 on 09/28/2024, MHECollection has been rescheduled by RMM at 09/28/2024 11:10 Reason: noanswer Performed By: #### L ZX9676, QDU2152, XSY5676, CXU8017 ####[facility] [place] [address] MCHC (RBC) [Mass/Vol] 33.4 g/dL Normal 32.0-36.0 [facility] Comment on above: Order Comment: Ordriguez d to and read back by JAKOB DUMONT (ed), at 11:48 on 09/28/2024, MHECollection has been rescheduled by RMM at 09/28/2024 11:10 Reason: noanswer Performed By: #### L NV7819, FIY2807, TQV3793, BBQ4659 ####[place] [address] MCV (RBC) [Entitic vol] 97.5 fL Normal 80.0-100.0 [facility] Comment on above: Order Comment: Rodriguez d to and read back by JAKOB DUMONT (ed), at 11:48 on 09/28/2024, MHECollection has been rescheduled by RMM at 09/28/2024 11:10 Reason: noanswer Performed By: #### L FZ5583, WNY2277, NTM9627, BVV6159 ####[place] [address] Monocytes (Bld) [#/Vol] 0.4 10*3/uL Normal 0.0-1.4 [facility] Comment on above: Order Comment: Rodriguez d to and read back by JAKOB DUMONT (ed), at 11:48 on 09/28/2024, MHECollection has been rescheduled by RMM at 09/28/2024 11:10 Reason: noanswer Performed By: #### L ST4175, SPR0206, SOD2063, DWA3643 ####[place] [address] Monocytes/100 WBC (Bld) 8.5 % Normal 2.1-13.3 [facility] Comment on above: Order Comment: Rodriguez d to and read back by JAKOB DUMONT (ed), at 11:48 on 09/28/2024, MHECollection has been rescheduled by RM at 09/28/2024 11:10 Reason: noanswer Performed By: #### L VF5010, ZWO3901, JEF0307, WDD9712 ####[id number] [place] [address] Neutrophils, Abs. 3.8 10*3/uL Normal 1.5-8.5 [facility] Comment on above: Order Comment: Rodriguez d to and read back by JAKOB DUMONT (ed), at 11:48 on 09/28/2024, MHECollection has been rescheduled by RM at 09/28/2024 11:10 Reason: noanswer Performed By: #### L GD9324, QWG5445, KKR6348, GZX9964 ####[place] [address] Neutrophils/100 WBC (Bld) 73.6 % High 35.0-66.0 [facility] Comment on above: Order Comment: Rodriguez d to and read back by JAKOB DUMONT (ed), at 11:48 on 09/28/2024, MHECollection has been rescheduled by [facility] at 09/28/2024 11:10 Reason: noanswer Performed By: #### L GJ0467, JNE9604, KYZ2764, CPN2079 ####[place] [address] Platelet Cnt 42 10*3/uL Critically low 150-450 [facility] Comment on above: Order Comment: Rodriguez d to and read back by JAKOB DUMONT (ed), at 11:48 on 09/28/2024, MHECollection has been rescheduled by [facility] at 09/28/2024 11:10 Reason: noanswer Performed By: #### L WK5987, UMU3935, YKU2278, WSZ9033 ####[place] [address] Platelet mean volume (Bld) [Entitic vol] 9.2 fL Normal 6.5-10.0 [facility] Comment on above: Order Comment: Rodriguez d to and read back by JAKOB DUOMNT (ed), at 11:48 on 09/28/2024, MHECollection has been rescheduled by RMM at 09/28/2024 11:10 Reason: noanswer Performed By: #### L IV8374, JMO6020, VBL6313, FBE8884 ####[place] [address] RBC (Bld) [#/Vol] 3.91 10*6/uL Low 4.00-5.20 [facility] Comment on above: Order Comment: Rodriguez d to and read back by JAKOB DUMONT (ed), at 11:48 on 09/28/2024, MHECollection has been rescheduled by RMM at 09/28/2024 11:10 Reason: noanswer Performed By: #### L CR2009, RPN2717, JWR9271, GWK6530 ####[place] [address] WBC (Bld) [#/Vol] 5.1 10*3/uL Normal 4.5-11.0 [facility] Comment on above: Order Comment: Rodriguez d to and read back by JAKOB DUMONT (ed), at 11:48 on 09/28/2024, MHECollection has been rescheduled by RMM at 09/28/2024 11:10 Reason: noanswer Performed By: #### L BI6434, ZAS6898, NXN9969, SHS2376 ####[place] [address] CBC w/Differentialon 025 Basophils (Bld) [#/Vol] 0.0 10*3/uL 0.0 - 0.1 10*3/uL [facility] Basophils/100 WBC (Bld) 0.5 % 0.0 - 1.0 % [facility] Differential cell count method Nom (Bld) Auto [facility] Eosinophils (Bld) [#/Vol] 0.2 10*3/uL 0.0 - 0.5 10*3/uL [facility] Eosinophils/100 WBC (Bld) 3.7 % 0.3 - 5.0 % [facility] Erythrocyte distribution width (RBC) [Ratio] 16.5 % 10.7 - 18.7 % [facility] Hematocrit (Bld) [Volume fraction] 38.1 % 33.0 - 51.0 % [facility] Hemoglobin (Bld) [Mass/Vol] 12.7 g/dL 12.0 - 16.0 g/dL [facility] Interpretation and review of laboratory results Abnormal [facility] Lymphocytes (Bld) [#/Vol] 0.7 10*3/uL Low 1.1 - 5.0 10*3/uL [facility] Lymphocytes/100 WBC (Bld) 13.8 % Low 24.0 - 44.0 % [facility] MCH (RBC) [Entitic mass] 32.5 pg 26.0 - 34.0 pg [facility] MCHC (RBC) [Mass/Vol] 33.4 g/dL 32.0 - 36.0 g/dL [facility] MCV (RBC) [Entitic vol] 97.5 fL 80.0 - 100.0 fL [facility] Monocytes (Bld) [#/Vol] 0.4 10*3/uL 0.0 - 1.4 10*3/uL [facility] Monocytes/100 WBC (Bld) 8.5 % 2.1 - 13.3 % [facility] Neutrophils (Bld) [#/Vol] 3.8 10*3/uL 1.5 - 8.5 10*3/uL [facility] Neutrophils/100 WBC (Bld) 73.6 % High 35.0 - 66.0 % [facility] Platelet mean volume (Bld) [Entitic vol] 9.2 fL 6.5 - 10.0 fL [facility] Platelets (Bld) [#/Vol] 42 10*3/uL Critically low 150 - 450 10*3/uL [facility] RBC (Bld) [#/Vol] 3.91 10*6/uL Low 4.00 - 5.2 0 10*6/uL [facility] WBC (Bld) [#/Vol] 5.1 10*3/uL 4.5 - 11.0 10*3/uL [facility] Called to and read b ack by JAKOB DUMONT (ed), at 11:48 on 09/28/2024, MHE Collection has been rescheduled by RMM at 09/28/2024 11:10 Reason: no answer [facility] COMPREHENSIVE METABOLIC PANE [place] 09-28-2024 Albumin [Mass/Vol] 3.1 g/dL Low 3.2-5.0 [facility] Comment on above: Order Comment: Esme bradley has been rescheduled by RMM at 09/28/2024 11:10 Reason: noanswer Performed By: #### L US2175, SDP3133, ZEL0998, XNI7201 ####[place] [address] Albumin/Globulin [Mass ratio] 0.9 {ratio} Normal [facility] Comment on above: Order Comment: Esme bradley has been rescheduled by RMM at 09/28/2024 11:10 Reason: noanswer Performed By: #### L AN5623, NMY6143, FQR5662, NRA0622 ####[place] [address] ALP [Catalytic activity/Vol] 141 U/L High 42-121 [facility] Comment on above: Order Comment: Esme bradley has been rescheduled by [facility] at 09/28/2024 11:10 Reason: noanswer Performed By: #### L HH2377, SLX9281, IFV1044, TEG4156 ####[place] [address] ALT [Catalytic activity/Vol] 75 U/L High 10-60 [facility] Comment on above: Order Comment: Esme bradley has been rescheduled by RM at 09/28/2024 11:10 Reason: noanswer Performed By: #### L PW2785, DKS8657, HEF2489, ZMV4016 ####[place] [address] Anion gap [Moles/Vol] 6 mmol/L Normal [facility] Comment on above: Order Comment: Esme bradley has been rescheduled by [facility] at 09/28/2024 11:10 Reason: noanswer Performed By: #### L JU7859, GHI0263, KKN3880, PLV0063 ####[place] [address] AST [Catalytic activity/Vol] 111 U/L High 10-42 [facility] Comment on above: Order Comment: Esme bradley has been rescheduled by [facility] at 09/28/2024 11:10 Reason: noanswer Performed By: #### L XP0230, RYQ9618, SOI1758, VJX0194 ####[place] [address] B/C 9 Low 10-20 [facility] Comment on above: Order Comment: Esme bradley has been rescheduled by [facility] at 09/28/2024 11:10 Reason: noanswer Performed By: #### L CU2092, MGK7761, KYJ9864, PWD6070 ####[place] [address] Bilirubin.direct [Mass/Vol] 2.1 mg/dL High 0.2-1.0 [facility] Comment on above: Order Comment: Esme bradley has been rescheduled by [facility] at 09/28/2024 11:10 Reason: noanswer Performed By: #### L LJ2619, ROE5465, AGA1686, YVC9692 ####[place] [address] Calcium [Mass/Vol] 8.8 mg/dL Normal 8.5-10.5 [facility] Comment on above: Order Comment: Esme bradley has been rescheduled by [facility] at 09/28/2024 11:10 Reason: noanswer Performed By: #### L BX0891, SLR4688, NVL4670, OQJ6625 ####[place] [address] Chloride [Moles/Vol] 104 mmol/L Normal 101-111 [facility] Comment on above: Order Comment: Esme bradley has been rescheduled by [facility] at 09/28/2024 11:10 Reason: noanswer Performed By: #### L [id number], [id number], [id number], [id number] ####BABATUNDE [id number] [place] [address] CO2 [Moles/Vol] 24 mmol/L Normal 21-31 [facility] Comment on above: Order Comment: Esme bradley has been rescheduled by [facility] at 09/28/2024 11:10 Reason: noanswer Performed By: #### L [id number], [id number], [id number], [id number] ####BABATUNDE [place] [id number] [place] [id number] Creatinine [Mass/Vol] 1.0 mg/dL Normal 0.4-1.0 [facility] Comment on above: Order Comment: Esme bradley has been rescheduled by [facility] at 09/28/2024 11:10 Reason: noanswer Performed By: #### L [id number], [id number], [id number], [id number] ####BABATUNDE [place] [id number] [place] [address] GFR/1.73 sq M.predicted MDRD (S/P/Bld) [Vol rate/Area] 58 mL/min/{1.73_m2} Normal [facility] Comment on above: Order Comment: Esme bradley has been rescheduled by [facility] at 09/28/2024 11:10 Reason: noanswer Result Comment: *The estimated Glomerular Filtration Rate(EGFR) may not be accurate for children under the age of 18 yrs. To estimate the GFR for -Americans multiply the result provided by 1.21.Stage 1 90 mL/min or greaterStage 2 60-89 mL/minStage 3 30-59 mL/minStage 4 15-29 mL/minStage 5 14 mL/min or less Performed By: #### L [id number], [id number], [id number], [id number] ####BABATUNDE [id number] [place] [address] Glucose [Mass/Vol] 155 mg/dL High 70-110 [facility] Comment on above: Order Comment: Esme bradley has been rescheduled by RMM at 09/28/2024 11:10 Reason: noanswer Performed By: #### L IH6639, KPL5141, VDT0642, XZR4583 ####BABATUNDE [facility] [place] [address] Osmolality [Osmolality] 270 mosm/kg Normal 266-309 [facility] Comment on above: Order Comment: Esme bradley has been rescheduled by RMM at 09/28/2024 11:10 Reason: noanswer Performed By: #### L QY9147, VXM0737, PFF9457, QCG2106 ####[place] [address] Potassium [Moles/Vol] 3.6 mmol/L Normal 3.6-5.0 [facility] Comment on above: Order Comment: Esme bradley has been rescheduled by RMM at 09/28/2024 11:10 Reason: noanswer Performed By: #### L TW7960, URJ6825, IXQ0742, WSL7149 ####[place] [address] Protein [Mass/Vol] 6.6 g/dL Normal 6.1-7.8 [facility] Comment on above: Order Comment: Esme bradley has been rescheduled by RMM at 09/28/2024 11:10 Reason: noanswer Performed By: #### L CJ8605, IAI7898, KYX3864, ORC5077 ####BABATUNDE [address] [address] Sodium [Moles/Vol] 134 mmol/L Low 135-145 [facility] Comment on above: Order Comment: Esme bradley has been rescheduled by [facility] at 09/28/2024 11:10 Reason: noanswer Performed By: #### L XY3881, EMS3259, OBN2893, QRS2195 ####BABATUNDE [place] [address] [place] [address] Urea nitrogen [Mass/Vol] 9 mg/dL Normal 2-32 [facility] Comment on above: Order Comment: Esme bradley has been rescheduled by RMJoanie at 09/28/2024 11:10 Reason: noanswer Performed By: #### L JH5633, YRM2093, IJH2501, XEF3186 ####[facility] [address] [place] [address] Comprehensive Metabolic Pane merritt 09-28-2024 Albumin [Mass/Vol] 3.1 g/dL Low 3.2 - 5.0 g/dL [facility] Albumin/Globulin [Mass ratio] 0.9 {ratio} [facility] ALP [Catalytic activity/Vol] 141 U/L High 42 - 121 [iU]/L [facility] ALT [Catalytic activity/Vol] 75 U/L High 10 - 60 [iU]/L [facility] Anion gap [Moles/Vol] 6 mmol/L [facility] AST [Catalytic activity/Vol] 111 U/L High 10 - 42 [iU]/L [facility] Bilirubin [Mass/Vol] 2.1 mg/dL High 0.2 - 1 .0 mg/dL [facility] Calcium [Mass/Vol] 8.8 mg/dL 8.5 - 10. 5 mg/dL [facility] Chloride [Moles/Vol] 104 mmol/L 101 - 1 11 mmol/L [facility] CO2 [Moles/Vol] 24 mmol/L 21 - 31 mmol/L [facility] Creatinine [Mass/Vol] 1.0 mg/dL 0.4 - 1.0 mg/dL [facility] GFR/1.73 sq M.predicted MDRD (S/P/Bld) [Vol rate/Area] 58 mL/min/{1.73_m2} [facility] Comment on above: *The estimated Glome rular [...] 155 mg/dL High 70 - 110 mg/dL [facility] Interpretation and review of laboratory results Abnormal [facility] Osmolality Calc [Osmolality] 270 266 - 309 [facility] Potassium [Moles/Vol] 3.6 mmol/L 3.6 - 5.0 mmol/L [facility] Protein [Mass/Vol] 6.6 g/dL 6.1 - 7.8 g/dL [facility] Sodium [Moles/Vol] 134 mmol/L Low 135 - 145 mmol/L [facility] Urea nitrogen [Mass/Vol] 9 mg/dL 2 - 32 mg/dL [facility] Urea nitrogen/Creatinine [Mass ratio] 9 mg/mg Low 10 - 20 [facility] Collection has been rescheduled by [facility] at 09/28/2024 11:10 Reason: no answer [facility] Fingerstick Glucoseon 2024 Glucose [Mass/Vol] 137 mg/dL High 70 - 110 mg/dL [facility] Interpretation and review of laboratory results Abnormal [facility] GLUCOSE, GLUCOMETERon 2024 Glucose [Mass/Vol] 137 mg/dL High 70-110 [facility] Comment on above: Performed By: #### L EL3774 ####[place] [address] LACTIC ACIDon 09-28-2024 Lactate [Moles/Vol] 1.3 mmol/L Normal 0.5-1.9 [facility] Comment on above: Order Comment: Colle ction has been rescheduled by [facility] at 09/28/2024 11:10 Reason: noanswer Performed By: #### L FD8318, SOJ4110 ####[place] [address] No Panel Informationon 09-28 Collection has been rescheduled by [facility] at 09/28/2024 11:10 Reason: no answer [facility] Collection has been rescheduled by [facility] at 09/28/2024 11:10 Reason: no answer [facility] PROCALCITONIN, Son PROCALCITONIN, S 0.15 ng/mL Normal [facility] Comment on above: Order Comment: Esme bradley has been rescheduled by [facility] at 09/28/2024 11:10 Reason: noanswer Result [...] or septic shock. Performed By: #### L UY4675, NBQ0329 ####[facility] [address] [place] [address] PT AND APTTon 09-28-2024 aPTT Coag (Bld) [Time] 38.6 s High 24.2-34.2 [facility] Comment on above: Order Comment: Esme bradley has been rescheduled by [facility] at 09/28/2024 11:10 Reason: noanswer Performed By: #### L QZ3806, STD9303, BWW2867, IUX7014 ####[place] [address] [place] [address] INR Coag (PPP) [Relative time] 1.6 {INR} High 0.9-1.1 [facility] Comment on above: LEVEL OF THERAPY IND ICATIONS TARGET INR RANGE STANDARD DOSE TREATMENT OF VENOUS THROMBOSIS 2.0-3.0 TREATMENT OF PULMONARY EMBOLUS PROPHYLAXIS AGAINST VENOUS THROMBOSIS BY SYSTEMIC EMBOLIZATION . HIGH DOSE HIGH RISK PATIENTS WITH 2.5-3.5 MECHANICAL HEART VALVES Order Comment: Esme bradley has been rescheduled by [facility] at 09/28/2024 11:10 Reason: noanswer Result Comment: LEVE L OF THERAPY INDICATIONS TARGET INR RANGESTANDARD DOSE TREATMENT OF VENOUS THROMBOSIS 2.0-3.0 TREATMENT OF PULMONARY EMBOLUS PROPHYLAXIS AGAINST VENOUS THROMBOSIS BY SYSTEMIC EMBOLIZATION .HIGH DOSE HIGH RISK PATIENTS WITH 2.5-3.5 MECHANICAL HEART VALVES Performed By: #### L TE8423, WUB1218, DRZ9130, NQT7746 ####[facility] [address] [place] [address] PT Coag (PPP) [Time] 18.5 s High 10.1-13.7 [facility] Comment on above: Order Comment: Esme ctlelo has been rescheduled by [facility] at 09/28/2024 11:10 Reason: noanswer Performed By: #### L EU0203, XQC4871, ZOF8983, UZO9734 ####[facility] [address] [place] [address] PT/APTT/INRon 09-28-2024 aPTT Coag (PPP) [Time] 38.6 s High 24.2 - 34.2 s [facility] Interpretation and review of laboratory results Abnormal [facility] Collection has been rescheduled by [facility] at 09/28/2024 11:10 Reason: no answer [facility] Procalcitonin, QN, Son 09-28 Procalcitonin [Mass/Vol] 0.15 ng/mL [facility] Comment on above: . <0.05 ng/mL Healthy [...] Troponin I HS, baseline 3 Normal 0-15 [facility] Comment on above: Order Comment: Esme ction has been rescheduled by [facility] at 09/28/2024 11:10 Reason: noanswer Result Comment: For Males 20 ng/L is the AMI cutoff for males.For Females 15 ng/L is the AMI cutoff for females. Performed By: #### L AQ1699 ####[facility] [place] [address] Troponin I, HS, baselineon 0 09-28-2024 Troponin I.cardiac High sensitivity method [Mass/Vol] 3 0 - 15 [facility] Comment on above: For Males 20 ng/L is the AMI cutoff for males. For Females 15 ng/L is the AMI cutoff for females. CBC w/ Differentialon 2024 Basophil Abs. 0.0 10*3/uL Normal 0.0-0.1 [facility] Comment on above: Performed By: #### L NF9235, JRU6818, ZZG8090, XDM8192 ####[place] [address] Basophils/100 WBC (Bld) 0.6 % Normal 0.0-1.0 [facility] Comment on above: Performed By: #### L UG7662, PDY6355, MFF1114, ODV1318 ####[place] [address] Differential type Auto Normal [facility] Comment on above: Performed By: #### L TK9539, HPX6659, ACT5574, TIX2202 ####[place] [address] Eosinophils (Bld) [#/Vol] 0.3 10*3/uL Normal 0.0-0.5 [facility] Comment on above: Performed By: #### L IM7003, IVQ4066, WKD9425, IHK1481 ####[address] [address] Eosinophils/100 WBC (Bld) 3.9 % Normal 0.3-5.0 [facility] Comment on above: Performed By: #### L ET6392, KYI9328, SHW1675, FBX8107 ####[place] [address] Erythrocyte distribution width (RBC) [Ratio] 15.7 % Normal 10.7-18.7 [facility] Comment on above: Performed By: #### L YK8161, BSU7568, ZMJ1061, JLD8450 ####[place] [address] Hematocrit (Bld) [Volume fraction] 38.3 % Normal 33.0-51.0 [facility] Comment on above: Performed By: #### L CK0379, TIU9341, VZM5527, YMU4847 ####[place] [address] Hemoglobin (Bld) [Mass/Vol] 13.0 g/dL Normal 12.0-16.0 [facility] Comment on above: Performed By: #### L PA1242, YAJ7819, VDX1885, KAQ6130 ####[place] [address] Lymphocytes (Bld) [#/Vol] 0.9 10*3/uL Low 1.1-5.0 [facility] Comment on above: Performed By: #### L TI7399, NFP1629, AEB6632, TAF1655 ####[place] [address] Lymphocytes/100 WBC (Bld) 14.4 % Low 24.0-44.0 [facility] Comment on above: Performed By: #### L EJ7878, WHF3798, JPY2703, YUQ6737 ####[place] [address] MCH (RBC) [Entitic mass] 32.5 pg Normal 26.0-34.0 [facility] Comment on above: Performed By: #### L ZQ6092, JBX5884, TXY5922, UNU0229 ####[place] [address] MCHC (RBC) [Mass/Vol] 33.9 g/dL Normal 32.0-36.0 [facility] Comment on above: Performed By: #### L LJ8808, IFJ6714, XOJ6917, PGB7266 ####[place] [address] MCV (RBC) [Entitic vol] 96.1 fL Normal 80.0-100.0 [facility] Comment on above: Performed By: #### L OE5565, ROG3190, XXA6225, BHH3249 ####[place] [address] Monocytes (Bld) [#/Vol] 0.7 10*3/uL Normal 0.0-1.4 [facility] Comment on above: Performed By: #### L PD7493, ANL9682, NSH3571, UCR4939 ####[place] [address] Monocytes/100 WBC (Bld) 10.0 % Normal 2.1-13.3 [facility] Comment on above: Performed By: #### L DQ1825, SXO3772, QIF3825, HHU6161 ####[place] [address] Neutrophils, Abs. 4.7 10*3/uL Normal 1.5-8.5 [facility] Comment on above: Performed By: #### L AO4708, HCP1820, XQU7174, OSR0900 ####[place] [address] Neutrophils/100 WBC (Bld) 71.1 % High 35.0-66.0 [facility] Comment on above: Performed By: #### L HZ3055, ERO8330, DTX8844, FHY5556 ####[place] [address] Platelet Cnt 51 10*3/uL Low 150-450 [facility] Comment on above: Performed By: #### L UL1155, TOI5801, FBW9467, UBI4757 ####[place] [address] Platelet mean volume (Bld) [Entitic vol] 9.2 fL Normal 6.5-10.0 [facility] Comment on above: Performed By: #### L XD6138, IHN3296, PJW6442, HDN9552 ####[place] [address] RBC (Bld) [#/Vol] 3.99 10*6/uL Low 4.00-5.20 [facility] Comment on above: Performed By: #### L WL7016, ZGW9080, PUW7940, UOJ1749 ####[place] [address] WBC (Bld) [#/Vol] 6.6 10*3/uL Normal 4.5-11.0 [facility] Comment on above: Performed By: #### L QF0444, IAZ2268, ZER5018, BAY2033 ####[place] [address] COMPREHENSIVE METABOLIC PANE Merritt 09-27-2024 Albumin [Mass/Vol] 3.1 g/dL Low 3.2-5.0 [facility] Comment on above: Performed By: #### L AY9928, DHV2023, DNZ2628, KUC2997 ####[place] [address] Albumin/Globulin [Mass ratio] 0.8 {ratio} Normal [facility] Comment on above: Performed By: #### L YM9342, IMP7856, USS4635, GYH3130 ####[place] [address] ALP [Catalytic activity/Vol] 141 U/L High 42-121 [facility] Comment on above: Performed By: #### L OF0566, BLS7815, ANV0020, TOJ0204 ####[place] [address] ALT [Catalytic activity/Vol] 74 U/L High 10-60 [facility] Comment on above: Performed By: #### L KU2704, UQR5504, ZFF3343, AUT8459 ####[place] [address] Anion gap [Moles/Vol] 5 mmol/L Normal [facility] Comment on above: Performed By: #### L ZO5189, USH0956, XVZ5662, KCZ9096 ####[place] [address] AST [Catalytic activity/Vol] 113 U/L High 10-42 [facility] Comment on above: Performed By: #### L BK3427, UTY9858, UZO2501, HIH4584 ####[place] [address] B/C 9 Low 10-20 [facility] Comment on above: Performed By: #### L WY3029, DLQ3189, ZSD2576, VAY4524 ####[place] [address] Bilirubin.direct [Mass/Vol] 2.0 mg/dL High 0.2-1.0 [facility] Comment on above: Performed By: #### L WE1896, SAJ3459, WHO6358, FFJ2595 ####[place] [address] Calcium [Mass/Vol] 9.0 mg/dL Normal 8.5-10.5 [facility] Comment on above: Performed By: #### L TS7743, ZZU9085, EPI0314, JAJ5157 ####[place] [address] Chloride [Moles/Vol] 108 mmol/L Normal 101-111 [facility] Comment on above: Performed By: #### L OR3927, MWV0138, XPP8177, JEX0614 ####[place] [address] CO2 [Moles/Vol] 25 mmol/L Normal 21-31 [facility] Comment on above: Performed By: #### L CJ6616, UTF8589, PEP9990, KAU0506 ####[place] [address] Creatinine [Mass/Vol] 0.8 mg/dL Normal 0.4-1.0 [facility] Comment on above: Performed By: #### L IM0173, PSY8934, XOL4963, DAZ9861 ####[place] [address] GFR/1.73 sq M.predicted MDRD (S/P/Bld) [Vol rate/Area] 76 mL/min/{1.73_m2} Normal [facility] Comment on above: Result Comment: *The estimated Glomerular Filtration Rate(EGFR) may not be accurate for children under the age of 18 yrs. To estimate the GFR for -Americans multiply the result provided by 1.21.Stage 1 90 mL/min or greaterStage 2 60-89 mL/minStage 3 30-59 mL/minStage 4 15-29 mL/minStage 5 14 mL/min or less Performed By: #### L KK5084, WZS5842, SRE7741, KYI9323 ####BABATUNDE [address] [address] Glucose [Mass/Vol] 87 mg/dL Normal 70-110 [facility] Comment on above: Performed By: #### L VU2806, VMV1991, LQF0645, VUR1945 ####BABATUNDE [address] [address] Osmolality [Osmolality] 273 mosm/kg Normal 266-309 [facility] Comment on above: Performed By: #### L CV7280, MQG0134, WGW1451, VZK8887 ####BABATUNDE [address] [address] Potassium [Moles/Vol] 3.9 mmol/L Normal 3.6-5.0 [facility] Comment on above: Performed By: #### L QX6078, BMX1961, DCV3725, KPB4560 ####BABATUNDE [address] [address] Protein [Mass/Vol] 7.0 g/dL Normal 6.1-7.8 [facility] Comment on above: Performed By: #### L EV1374, XED8074, UKY2614, ZMH8166 ####[address] [address] Sodium [Moles/Vol] 138 mmol/L Normal 135-145 [facility] Comment on above: Performed By: #### L EP0586, ASY7856, LCD7453, YFO3967 ####BABATUNDE [address] [address] Urea nitrogen [Mass/Vol] 7 mg/dL Normal 2-32 [facility] Comment on above: Performed By: #### L CU0169, OYR8224, ATV1341, OFM2789 ####[facility] [address] [place] [address] MAGNESIUMon 09-27-2024 Magnesium [Mass/Vol] 1.6 mg/dL Low 1.7-2.8 [facility] Comment on above: Performed By: #### L BD8465, MHG4588, CIX7572, HOH9912 ####[facility] [address] [place] [address] PT INRon 09-27-2024 INR Coag (PPP) [Relative time] 1.5 {INR} High 0.9-1.1 [facility] Comment on above: Result Comment: CORRIE Luciano OF THERAPY INDICATIONS TARGET INR RANGESTANDARD DOSE TREATMENT OF VENOUS THROMBOSIS 2.0-3.0 TREATMENT OF PULMONARY EMBOLUS PROPHYLAXIS AGAINST VENOUS THROMBOSIS BY SYSTEMIC EMBOLIZATION .HIGH DOSE HIGH RISK PATIENTS WITH 2.5-3.5 MECHANICAL HEART VALVES Performed By: #### L TY5513, ZEN0822, IIB4436, CPQ4092 ####[facility] [address] [place] [address] PT Coag (PPP) [Time] 18.1 s High 10.1-13.7 [facility] Comment on above: Performed By: #### L KC9846, OQN2678, UDD6946, NTU3433 ####[place] [address] Vascular Procedureon 025 : Technically successful ultrasound-guided therapeutic paracentesis with aspiration of 1650 cc of clear mike fluid. SIGNED: Ginger Milton MD 09/27/2024 11:30 AM [facility] INTERVENTIONAL RADIOLOGY REPORT PATIENT: Carolina Hightower DATE [...] provided using 1% buffered lidocaine. A 6.5 [place] non-locking Resolve pigtail catheter was advanced into the peritoneal space. 1650 cc of clear mike fluid were obtained. The catheter was removed intact. A dry sterile dressing was applied to the puncture site. The patient tolerated the procedure well and there were no immediate complications. The patient was given no IV albumin. FINDINGS: Moderate amount of free peritoneal fluid/ascites. [facility] Radiology Study observation (narrative) [facility] VASCULAR PROCEDUREon 024 VASCULAR PROCEDURE Normal [facility] VASCULAR PROCEDURE Normal [facility] Vascular Procedureon 024 [facility] Radiology Study observation (narrative) [facility] CBC w/ Differentialon 2023 Basophil Abs. 0.0 10*3/uL Normal 0.0-0.1 [facility] Comment on above: Performed By: #### L UQ0917, TTD5719, XBG8103, NCN2220, SHI8470 ####[place] [address] Basophils/100 WBC (Bld) 0.4 % Normal 0.0-1.0 [facility] Comment on above: Performed By: #### L WR2974, VRQ0465, JKY5902, KPH5181, LUZ6339 ####[place] [address] Differential type Auto Normal [facility] Comment on above: Performed By: #### L LZ2434, FXA3498, YIG3290, NFI5349, EEB1995 ####[place] [address] Eosinophils (Bld) [#/Vol] 0.3 10*3/uL Normal 0.0-0.5 [facility] Comment on above: Performed By: #### L IS1311, WVW3196, NKC4764, WNS8267, JOF6127 ####[address] [address] Eosinophils/100 WBC (Bld) 4.8 % Normal 0.3-5.0 [facility] Comment on above: Performed By: #### L GN0449, SHE8721, HKC0119, PLU2608, LQC0020 ####[address] [address] Erythrocyte distribution width (RBC) [Ratio] 15.8 % Normal 10.7-18.7 [facility] Comment on above: Performed By: #### L UD5353, NCV6643, IEW9757, UTT5495, JRA9469 ####[place] [address] Hematocrit (Bld) [Volume fraction] 37.1 % Normal 33.0-51.0 [facility] Comment on above: Performed By: #### L RY1455, VOK8890, ZHV3450, DRA3595, YLO1045 ####[place] [address] Hemoglobin (Bld) [Mass/Vol] 12.4 g/dL Normal 12.0-16.0 [facility] Comment on above: Performed By: #### L YO9875, VOZ7751, SCH4387, ZMG0462, GWC6134 ####[address] [address] Lymphocytes (Bld) [#/Vol] 0.9 10*3/uL Low 1.1-5.0 [facility] Comment on above: Performed By: #### L ZT7225, LJY2901, LVN2923, BUZ6232, SKS6742 ####[address] [address] Lymphocytes/100 WBC (Bld) 17.6 % Low 24.0-44.0 [facility] Comment on above: Performed By: #### L AU3566, TDW6977, DFM1241, UWU8651, FQF3322 ####[address] [address] MCH (RBC) [Entitic mass] 32.8 pg Normal 26.0-34.0 [facility] Comment on above: Performed By: #### L UT1973, OIX4235, FPN6319, FLF9247, BGI0040 ####[place] [address] MCHC (RBC) [Mass/Vol] 33.3 g/dL Normal 32.0-36.0 [facility] Comment on above: Performed By: #### L UZ1856, OJR0411, SMY3713, GHQ3242, MAT3342 ####[place] [address] MCV (RBC) [Entitic vol] 98.5 fL Normal 80.0-100.0 [facility] Comment on above: Performed By: #### L QK1275, TEI6091, HXT2812, KQQ0961, PVY8031 ####[place] [address] Monocytes (Bld) [#/Vol] 0.6 10*3/uL Normal 0.0-1.4 [facility] Comment on above: Performed By: #### L PI9875, WWF8813, TXW6815, GRJ3569, PFI3858 ####[place] [address] Monocytes/100 WBC (Bld) 11.0 % Normal 2.1-13.3 [facility] Comment on above: Performed By: #### L NB5287, UDB2534, RRZ5404, BWJ2365, COQ8060 ####[place] [address] Neutrophils, Abs. 3.4 10*3/uL Normal 1.5-8.5 [facility] Comment on above: Performed By: #### L QT7594, YPR0485, NEP9077, HKK6060, OOG7979 ####[place] [address] Neutrophils/100 WBC (Bld) 66.3 % High 35.0-66.0 [facility] Comment on above: Performed By: #### L XI9626, VKM0102, TPA5119, IHT3604, RGN3076 ####[place] [address] Platelet Cnt 55 10*3/uL Low 150-450 [facility] Comment on above: Performed By: #### L MP5385, JGM6293, UXH6162, HCA3164, OGV4763 ####[place] [address] Platelet mean volume (Bld) [Entitic vol] 10.4 fL High 6.5-10.0 [facility] Comment on above: Performed By: #### L QJ4559, WYC6109, KBT2897, IYG3506, WYN7819 ####[place] [address] RBC (Bld) [#/Vol] 3.77 10*6/uL Low 4.00-5.20 [facility] Comment on above: Performed By: #### L SU2317, IIJ1175, ERF6145, FNY5299, VGA8558 ####[place] [address] WBC (Bld) [#/Vol] 5.1 10*3/uL Normal 4.5-11.0 [facility] Comment on above: Performed By: #### L YP1563, AUG8277, DIY9338, QBX3141, ALW7525 ####[place] [address] COMPREHENSIVE METABOLIC PANE Merritt 09-11-2024 Albumin [Mass/Vol] 2.9 g/dL Low 3.2-5.0 [facility] Comment on above: Performed By: #### L IN4741, GDM4116, HAX4559, DLR0611, ZZQ0625 ####[place] [address] Albumin/Globulin [Mass ratio] 0.8 {ratio} Normal [facility] Comment on above: Performed By: #### L PV1804, AQQ9045, BVM4821, EZO5983, ZNT8949 ####[place] [address] ALP [Catalytic activity/Vol] 129 U/L High 42-121 [facility] Comment on above: Performed By: #### L IE2008, THQ7047, GGL4216, BOT5150, RNX1786 ####[place] [address] ALT [Catalytic activity/Vol] 68 U/L High 10-60 [facility] Comment on above: Performed By: #### L DF5290, UCC7641, SRN0776, CSH9634, ZAK9739 ####[place] [address] Anion gap [Moles/Vol] 5 mmol/L Normal [facility] Comment on above: Performed By: #### L MZ2611, POW1848, DOO1474, URZ5599, YXJ0443 ####[place] [address] AST [Catalytic activity/Vol] 115 U/L High 10-42 [facility] Comment on above: Performed By: #### L KO6199, VOK3234, WHQ9629, LHT3322, EFT3053 ####[place] [address] B/C 10 Normal 10-20 [facility] Comment on above: Performed By: #### L GG8895, JXV8905, EGD7889, AFN5210, DUS2066 ####[place] [address] Bilirubin.direct [Mass/Vol] 1.6 mg/dL High 0.2-1.0 [facility] Comment on above: Performed By: #### L OI5750, UJG4600, CFB6392, VXI4210, BYM2473 ####[place] [address] Calcium [Mass/Vol] 8.8 mg/dL Normal 8.5-10.5 [facility] Comment on above: Performed By: #### L QA9068, WLF4030, XKS2881, NOU2012, UBU1270 ####[facility] [place] [address] Chloride [Moles/Vol] 109 mmol/L Normal 101-111 [facility] Comment on above: Performed By: #### L FV8463, JWA1700, GZG5124, RUE1180, WOI3885 ####[facility] [address] [place] [address] CO2 [Moles/Vol] 25 mmol/L Normal 21-31 [facility] Comment on above: Performed By: #### L NC6364, UGI1797, VXS8676, PRX4732, CZO5885 ####[address] [address] Creatinine [Mass/Vol] 1.0 mg/dL Normal 0.4-1.0 [facility] Comment on above: Performed By: #### L JS4403, UCY0434, VLA4851, FQR6018, DKD2897 ####[place] [address] GFR/1.73 sq M.predicted MDRD (S/P/Bld) [Vol rate/Area] 58 mL/min/{1.73_m2} Normal [facility] Comment on above: Result Comment: *The estimated Glomerular Filtration Rate(EGFR) may not be accurate for children under the age of 18 yrs. To estimate the GFR for -Americans multiply the result provided by 1.21.Stage 1 90 mL/min or greaterStage 2 60-89 mL/minStage 3 30-59 mL/minStage 4 15-29 mL/minStage 5 14 mL/min or less Performed By: #### L HZ0681, JAO9181, KAK2077, XEA5493, AWG7136 ####[address] [address] Glucose [Mass/Vol] 83 mg/dL Normal 70-110 [facility] Comment on above: Performed By: #### L BH1248, YLG0427, MOT0388, DWK4851, ZKD4644 ####[facility] [address] [place] [address] Osmolality [Osmolality] 276 mosm/kg Normal 266-309 [facility] Comment on above: Performed By: #### L ZO4497, PUE5898, JJE0525, EXK9793, QPK9211 ####[address] [address] Potassium [Moles/Vol] 3.9 mmol/L Normal 3.6-5.0 [facility] Comment on above: Performed By: #### L YV5737, WVM1194, SQG0799, UAP9293, XLN1111 ####[place] [address] Protein [Mass/Vol] 6.5 g/dL Normal 6.1-7.8 [facility] Comment on above: Performed By: #### L PL0128, ZRO1921, UAC6019, KEV9187, RKY8288 ####[address] [address] Sodium [Moles/Vol] 139 mmol/L Normal 135-145 [facility] Comment on above: Performed By: #### L KJ2855, BDL5825, EOC6655, RIE4454, ETW9593 ####[place] [address] Urea nitrogen [Mass/Vol] 10 mg/dL Normal 2-32 [facility] Comment on above: Performed By: #### L MB0726, AGJ9534, OQN6055, SHX2975, HJO1786 ####[place] [address] FERRITINon 09-11-2024 Ferritin [Mass/Vol] 41.1 ng/mL Normal 11.0-306.8 [facility] Comment on above: Performed By: #### L FT8624, COT5786, DEQ7505, TPT2444, FMU1218 ####[place] [address] IRON AND TOTAL IRON BINDING CAPACITYon 09-11-2024 % SATURATION 46 % Normal 15-55 [facility] Comment on above: Performed By: #### L GW0837, CTD1991, AWF1634, EYD8256, FZQ4934 ####[facility] [address] [place] [address] Iron [Mass/Vol] 132 ug/dL Normal 40-150 [facility] Comment on above: Performed By: #### L CR6964, KVU5906, CKC4216, VDA7323, CZJ9848 ####[place] [address] IRON BIND. CAP.,TOT 287 ug/dL Normal 250-400 [facility] Comment on above: Performed By: #### L WP8304, WYO2681, DYQ3022, TXZ8084, YGM2443 ####[place] [address] Transferrin [Mass/Vol] 205.00 mg/dL Normal 192.00-382. 00 [facility] Comment on above: Performed By: #### L QR5419, EDE7949, GJO9671, GKD0360, GDD6750 ####[place] [address] UIBC 155 ug/dL Normal 150-375 [facility] Comment on above: Performed By: #### L QY5139, ZVX7279, SGU2775, HZF7008, BXZ9811 ####[place] [address] PT INRon 09-11-2024 INR Coag (PPP) [Relative time] 1.4 {INR} High 0.9-1.1 [facility] Comment on above: Result Comment: CORRIE Luciano OF THERAPY INDICATIONS TARGET INR RANGESTANDARD DOSE TREATMENT OF VENOUS THROMBOSIS 2.0-3.0 TREATMENT OF PULMONARY EMBOLUS PROPHYLAXIS AGAINST VENOUS THROMBOSIS BY SYSTEMIC EMBOLIZATION .HIGH DOSE HIGH RISK PATIENTS WITH 2.5-3.5 MECHANICAL HEART VALVES Performed By: #### L VY6330, VNX7224, GHJ8403, PLW9801, UXQ2332 ####[place] [address] PT Coag (PPP) [Time] 16.9 s High 10.1-13.7 [facility] Comment on above: Performed By: #### L UI8626, IQI4603, JDI3717, FZC4036, LPP7849 ####[place] [address] VASCULAR PROCEDUREon 024 VASCULAR PROCEDURE Normal [facility] VASCULAR PROCEDURE Normal [facility] FLUID CELL COUNTon 4 Basophils/100 WBC (Bld) 0 % Normal [facility] Comment on above: Order Comment: Ascit es Performed By: #### L YM5233, UDH4525, GNW7971, MJJ5695, QYW8040, RNV3073 ####[place] [address] Eosinophils/100 WBC (Bld) 0 % Normal [facility] Comment on above: Order Comment: Ascit es Performed By: #### L DN7251, GEG1173, ELH1715, ZIV5828, DSZ6578, ADY7606 ####[place] [address] Lymphocytes/100 WBC (Bld) 11 % Normal [facility] Comment on above: Order Comment: Ascit es Performed By: #### L OY6281, LNO9536, GAI1768, DMF0405, SYI7263, BIN6374 ####[place] [address] MACROPHAGES 79 % Normal [facility] Comment on above: Order Comment: Ascit es Performed By: #### L QO3783, UYR6959, EHS1850, EMN7622, TQD9128, PSK0009 ####[place] [address] MESOTHELIAL 3 % Normal [facility] Comment on above: Order Comment: Ascit es Performed By: #### L NZ1530, ILR4795, JXK0313, TBO5941, BEB6168, WWJ7042 ####[place] [address] Neutrophils/100 WBC (Bld) 7 % Normal [facility] Comment on above: Order Comment: Ascit es Performed By: #### L RU8015, MFB7430, HCX8046, MIW7806, UJK4046, PTW0371 ####[place] [address] PATHOLOGY REVIEW see below Normal [facility] Comment on above: Order Comment: Ascit es Result Comment: REVI EWED BY DR. ALEXANDRU KILLIAN: Agree with differential. 09/10/2024 Performed By: #### L BY4997, UMW5852, ZMH8442, ITZ1578, XRR9320, EWW7523 ####[place] [address] PLASMA CELLS 0 % Normal [facility] Comment on above: Order Comment: Ascit es Performed By: #### L TF0278, QEI4163, GRZ9398, FJZ5819, KUU3164, LUN9161 ####[place] [address] OTHER 0 Normal [facility] Comment on above: Order Comment: Ascit es Performed By: #### L NJ5975, NCW4747, WPV4037, ZCD6582, PJL3073, KUT9626 ####[place] [address] AMMONIAon 09-09-2024 Ammonia (P) [Moles/Vol] 98 umol/L High 11-50 [facility] Comment on above: Performed By: #### L ZS3611 ####[place] [address] CBC w/ Differentialon 2023 Basophil Abs. 0.0 10*3/uL Normal 0.0-0.1 [facility] Comment on above: Order Comment: Rodriguez d to and read back by plat called to irene pedersen, at 01:44 on 09/09/2024, LPH Performed By: #### L VL4999, GRJ8182, JRA8040, FFH4594 ####[place] [address] Basophils/100 WBC (Bld) 0.7 % Normal 0.0-1.0 [facility] Comment on above: Order Comment: Rodriguez d to and read back by plat called to ierne pedersen, at 01:44 on 09/09/2024, LPH Performed By: #### L UY1576, OTG6879, IIH7381, NXE0718 ####[place] [address] Differential type Auto Normal [facility] Comment on above: Order Comment: Rodriguez d to and read back by plat called to irene pedersen, at 01:44 on 09/09/2024, LPH Performed By: #### L LU8918, WGK3234, HCG9964, UWR4068 ####[place] [address] Eosinophils (Bld) [#/Vol] 0.2 10*3/uL Normal 0.0-0.5 [facility] Comment on above: Order Comment: Rodriguez d to and read back by plat called to irene pedersen, at 01:44 on 09/09/2024, LPH Performed By: #### L QI9994, QPG6555, LXM1815, CZJ9124 ####[place] [address] Eosinophils/100 WBC (Bld) 4.2 % Normal 0.3-5.0 [facility] Comment on above: Order Comment: Rodriguez d to and read back by plat called to irene pedersen, at 01:44 on 09/09/2024, LPH Performed By: #### L IP8927, ESJ2200, RSX1867, VHJ2480 ####[place] [address] Erythrocyte distribution width (RBC) [Ratio] 16.1 % Normal 10.7-18.7 [facility] Comment on above: Order Comment: Rodriguez d to and read back by plat called to irene pedersen, at 01:44 on 09/09/2024, LPH Performed By: #### L YH3087, TDL4488, SHO7763, ETC1923 ####[place] [address] Hematocrit (Bld) [Volume fraction] 31.4 % Low 33.0-51.0 [facility] Comment on above: Order Comment: Rodriguez d to and read back by plat called to irene pedersen, at 01:44 on 09/09/2024, LPH Performed By: #### L RV5285, PUM0770, WEE1621, EAY0406 ####[place] [address] Hemoglobin (Bld) [Mass/Vol] 10.5 g/dL Low 12.0-16.0 [facility] Comment on above: Order Comment: Rodriguez d to and read back by plat called to irene pedersen, at 01:44 on 09/09/2024, LPH Performed By: #### L VE0353, WVC3931, FUC8281, QGZ3886 ####[place] [address] Lymphocytes (Bld) [#/Vol] 1.0 10*3/uL Low 1.1-5.0 [facility] Comment on above: Order Comment: Rodriguez d to and read back by plat called to irene pedersen, at 01:44 on 09/09/2024, LPH Performed By: #### L PC8883, ZGR1701, AIE7832, FQU5847 ####[place] [address] Lymphocytes/100 WBC (Bld) 22.4 % Low 24.0-44.0 [facility] Comment on above: Order Comment: Rodriguez d to and read back by plat called to irene pedersen, at 01:44 on 09/09/2024, LPH Performed By: #### L ZZ8995, FHJ5017, KZF5535, FKG5111 ####[place] [address] MCH (RBC) [Entitic mass] 32.3 pg Normal 26.0-34.0 [facility] Comment on above: Order Comment: Rodriguez d to and read back by plat called to irene pedersen, at 01:44 on 09/09/2024, LPH Performed By: #### L DI7794, YZZ0763, EES0605, ROY0960 ####[place] [address] MCHC (RBC) [Mass/Vol] 33.4 g/dL Normal 32.0-36.0 [facility] Comment on above: Order Comment: Rodriguez d to and read back by plat called to irene pedersen, at 01:44 on 09/09/2024, LPH Performed By: #### L XR0066, BMS1170, PWT4082, KPS0014 ####[place] [address] MCV (RBC) [Entitic vol] 96.7 fL Normal 80.0-100.0 [facility] Comment on above: Order Comment: Rodriguez d to and read back by plat called to irene pedersen, at 01:44 on 09/09/2024, LPH Performed By: #### L WS1165, QCN8378, OQA1120, PCJ8903 ####[place] [address] Monocytes (Bld) [#/Vol] 0.7 10*3/uL Normal 0.0-1.4 [facility] Comment on above: Order Comment: Rodriguez d to and read back by plat called to irene epdersen, at 01:44 on 09/09/2024, LPH Performed By: #### L DN1825, GAG1072, UHC7669, PLJ5093 ####[place] [address] Monocytes/100 WBC (Bld) 14.4 % High 2.1-13.3 [facility] Comment on above: Order Comment: Rodriguez d to and read back by plat called to irene pedersen, at 01:44 on 09/09/2024, LPH Performed By: #### L LJ5067, EZL7411, ZXS8659, TAR2936 ####[place] [address] Neutrophils, Abs. 2.7 10*3/uL Normal 1.5-8.5 [facility] Comment on above: Order Comment: Rodriguez d to and read back by plat called to irene pedersen, at 01:44 on 09/09/2024, LPH Performed By: #### L ZA9634, JLE6076, KBX8229, HPH9205 ####[place] [address] Neutrophils/100 WBC (Bld) 58.3 % Normal 35.0-66.0 [facility] Comment on above: Order Comment: Rodriguez d to and read back by plat called to irene pedersen, at 01:44 on 09/09/2024, LPH Performed By: #### L RM1353, NWP5821, DPQ9800, CDQ1577 ####[place] [address] Platelet Cnt 40 10*3/uL Critically low 150-450 [facility] Comment on above: Order Comment: Rodriguez d to and read back by plat called to irene pedersen, at 01:44 on 09/09/2024, LPH Performed By: #### L JE9919, PJU1383, EZG8887, COB0408 ####[place] [address] Platelet mean volume (Bld) [Entitic vol] 9.9 fL Normal 6.5-10.0 [facility] Comment on above: Order Comment: Rodriguez d to and read back by plat called to irene pedersen, at 01:44 on 09/09/2024, LPH Performed By: #### L GT5062, OIL6272, WMD5910, EOB9037 ####[place] [address] RBC (Bld) [#/Vol] 3.24 10*6/uL Low 4.00-5.20 [facility] Comment on above: Order Comment: Rodriguez d to and read back by plat called to irene pedersen, at 01:44 on 09/09/2024, LPH Performed By: #### L UF4463, GEG7145, ZWY1002, DVB8902 ####[address] [address] WBC (Bld) [#/Vol] 4.5 10*3/uL Normal 4.5-11.0 [facility] Comment on above: Order Comment: Rodriguez d to and read back by plat called to irene pedersen, at 01:44 on 09/09/2024, LPH Performed By: #### L PO3261, RBL4939, DOE9102, DRE5865 ####[place] [address] COMPREHENSIVE METABOLIC PANE Merritt 09-09-2024 Albumin [Mass/Vol] 2.4 g/dL Low 3.2-5.0 [facility] Comment on above: Performed By: #### L MQ1596, ULS2973, YZK2653, XHT9284 ####[place] [address] Albumin/Globulin [Mass ratio] 0.9 {ratio} Normal [facility] Comment on above: Performed By: #### L OF0940, MWH6734, OKK5990, PGB2390 ####[place] [address] ALP [Catalytic activity/Vol] 117 U/L Normal 42-121 [facility] Comment on above: Performed By: #### L OQ0798, XAH6838, PGU9226, OCF0390 ####[place] [address] ALT [Catalytic activity/Vol] 75 U/L High 10-60 [facility] Comment on above: Performed By: #### L GC0576, TOJ0223, LUF4869, KJT2761 ####[place] [address] Anion gap [Moles/Vol] 4 mmol/L Normal [facility] Comment on above: Performed By: #### L TH7871, LGN0990, MYX0074, QWY5076 ####[place] [address] AST [Catalytic activity/Vol] 134 U/L High 10-42 [facility] Comment on above: Performed By: #### L YG5112, FGJ8334, OZL6745, ASA8082 ####[place] [address] B/C 9 Low 10-20 [facility] Comment on above: Performed By: #### L RO7434, YBH9541, HOX4360, RLH9432 ####[facility] [address] [place] [address] Bilirubin.direct [Mass/Vol] 1.2 mg/dL High 0.2-1.0 [facility] Comment on above: Performed By: #### L QQ7393, NYK2145, ADH4768, UBX6455 ####[facility] [address] [place] [address] Calcium [Mass/Vol] 8.4 mg/dL Low 8.5-10.5 [facility] Comment on above: Performed By: #### L HJ0676, ZUW2893, ZMA5330, FSM5871 ####[facility] [address] [place] [address] Chloride [Moles/Vol] 105 mmol/L Normal 101-111 [facility] Comment on above: Performed By: #### L WY9713, THO4804, MFQ5633, GZB6827 ####[facility] [address] [place] [address] CO2 [Moles/Vol] 24 mmol/L Normal 21-31 [facility] Comment on above: Performed By: #### L UZ5087, QRX5145, ZIB9820, DZY5096 ####[facility] [address] [place] [address] Creatinine [Mass/Vol] 0.9 mg/dL Normal 0.4-1.0 [facility] Comment on above: Performed By: #### L WX8177, DQJ0860, QZY8021, GYM2393 ####[address] [address] GFR/1.73 sq M.predicted MDRD (S/P/Bld) [Vol rate/Area] 66 mL/min/{1.73_m2} Normal [facility] Comment on above: Result Comment: *The estimated Glomerular Filtration Rate(EGFR) may not be accurate for children under the age of 18 yrs. To estimate the GFR for -Americans multiply the result provided by 1.21.Stage 1 90 mL/min or greaterStage 2 60-89 mL/minStage 3 30-59 mL/minStage 4 15-29 mL/minStage 5 14 mL/min or less Performed By: #### L GU0984, LYC3034, QWH6656, ZNR6356 ####BABATUNDE [address] [address] Glucose [Mass/Vol] 83 mg/dL Normal 70-110 [facility] Comment on above: Performed By: #### L DP0002, XVM3438, BBE0909, JTK9108 ####BABATUNDE [address] [address] Osmolality [Osmolality] 264 mosm/kg Low 266-309 [facility] Comment on above: Performed By: #### L JY5276, XWW2799, YRN5630, PUZ6719 ####BABATUNDE [address] [address] Potassium [Moles/Vol] 4.1 mmol/L Normal 3.6-5.0 [facility] Comment on above: Performed By: #### L GP8272, XCI3464, THT2030, IVJ7097 ####BABATUNDE [address] [address] Protein [Mass/Vol] 5.2 g/dL Low 6.1-7.8 [facility] Comment on above: Performed By: #### L PK5494, ZZN3338, TQV4007, DBR8440 ####BABATUNDE [address] [address] Sodium [Moles/Vol] 133 mmol/L Low 135-145 [facility] Comment on above: Performed By: #### L XB5110, GKP1451, HWO7626, AAZ2329 ####BABATUNDE [address] [address] Urea nitrogen [Mass/Vol] 8 mg/dL Normal 2-32 [facility] Comment on above: Performed By: #### L TM1969, KMC1497, ELK5946, ULE1956 ####[place] [address] GLUCOSE, GLUCOMETERon 2023 Glucose [Mass/Vol] 138 mg/dL High 70-110 [facility] Comment on above: Performed By: #### L YI9714 ####[place] [address] Glucose [Mass/Vol] 93 mg/dL Normal 70-110 [facility] Comment on above: Performed By: #### L FV0865 ####[place] [address] MAGNESIUMon 09-09-2024 Magnesium [Mass/Vol] 1.8 mg/dL Normal 1.7-2.8 [facility] Comment on above: Performed By: #### L SO0905, PBB0944, QTA7061, JYY6579 ####[place] [address] Recollect, Speicmenon 2023 Comment see below Normal [facility] Comment on above: Result Comment: Spec imen requires recollection. A new STAT test has been placed, to expediterecollection of specimen by phlebotomy team. Performed By: #### L HS2864, LEH8431, APE9343, XVG2267 ####[place] [address] Notified Republican irene pedersen Normal [facility] Comment on above: Performed By: #### L XM7660, ZQF9838, TCB6485, QUO1843 ####[place] [address] Test Name amm Normal [facility] Comment on above: Performed By: #### L GY9360, LDX9082, FTQ7909, WRB8785 ####[place] [address] AMMONIAon 09-08-2024 Ammonia (P) [Moles/Vol] 52 umol/L High 11-50 [facility] Comment on above: Performed By: #### L KP2754, XLN3846, EKY6484, TOR7294 ####[place] [address] CBC w/ Differentialon 2023 Basophil Abs. 0.0 10*3/uL Normal 0.0-0.1 [facility] Comment on above: Performed By: #### L VJ2802, UVG9631, AKL3810, RCZ9438 ####[place] [address] Basophils/100 WBC (Bld) 0.7 % Normal 0.0-1.0 [facility] Comment on above: Performed By: #### L AK3356, KRX9577, FNI2103, UFK9600 ####[place] [address] Differential type Auto Normal [facility] Comment on above: Performed By: #### L BN2692, LSI9607, FOK9187, MQC6567 ####[place] [address] Eosinophils (Bld) [#/Vol] 0.2 10*3/uL Normal 0.0-0.5 [facility] Comment on above: Performed By: #### L GU5623, JOQ7313, ALW1154, SDH7478 ####[place] [address] Eosinophils/100 WBC (Bld) 3.7 % Normal 0.3-5.0 [facility] Comment on above: Performed By: #### L EJ8527, NGM5345, SKO9762, ZOG6142 ####[place] [address] Erythrocyte distribution width (RBC) [Ratio] 15.8 % Normal 10.7-18.7 [facility] Comment on above: Performed By: #### L LO6779, YFG4847, GHM0401, AJK2389 ####[place] [address] Hematocrit (Bld) [Volume fraction] 34.5 % Normal 33.0-51.0 [facility] Comment on above: Performed By: #### L PD4253, GAO9908, WJE8880, CYI1502 ####[facility] [address] [place] [address] Hemoglobin (Bld) [Mass/Vol] 11.6 g/dL Low 12.0-16.0 [facility] Comment on above: Performed By: #### L EF3003, BWA6204, EMG4977, QPF4541 ####[place] [address] Lymphocytes (Bld) [#/Vol] 1.0 10*3/uL Low 1.1-5.0 [facility] Comment on above: Performed By: #### L AS8342, XXZ1008, PKO7645, ALC5815 ####[place] [address] Lymphocytes/100 WBC (Bld) 17.6 % Low 24.0-44.0 [facility] Comment on above: Performed By: #### L CW0527, YLV0636, PRG2105, JCA4052 ####[place] [address] MCH (RBC) [Entitic mass] 32.2 pg Normal 26.0-34.0 [facility] Comment on above: Performed By: #### L OB7995, PRZ3270, PFM4608, IIG9321 ####[place] [address] MCHC (RBC) [Mass/Vol] 33.7 g/dL Normal 32.0-36.0 [facility] Comment on above: Performed By: #### L PH9737, LNI5931, TDD8789, PRQ9928 ####[place] [address] MCV (RBC) [Entitic vol] 95.7 fL Normal 80.0-100.0 [facility] Comment on above: Performed By: #### L EE4109, QZW8983, USO2476, DCN5999 ####[place] [address] Monocytes (Bld) [#/Vol] 0.9 10*3/uL Normal 0.0-1.4 [facility] Comment on above: Performed By: #### L QU7320, SFR5437, HSZ2022, ZUK6116 ####[address] [address] Monocytes/100 WBC (Bld) 15.0 % High 2.1-13.3 [facility] Comment on above: Performed By: #### L CC6229, XJM6849, XJJ8056, WIS0492 ####[address] [address] Neutrophils, Abs. 3.6 10*3/uL Normal 1.5-8.5 [facility] Comment on above: Performed By: #### L GU6299, ARB1379, SFI9641, IKL6217 ####[address] [address] Neutrophils/100 WBC (Bld) 63.0 % Normal 35.0-66.0 [facility] Comment on above: Performed By: #### L MH8824, GOQ1367, DIT0330, NEL7486 ####[address] [address] Platelet Cnt 57 10*3/uL Low 150-450 [facility] Comment on above: Performed By: #### L ND3371, KZH8810, VAO1763, USZ2623 ####[address] [address] Platelet mean volume (Bld) [Entitic vol] 10.4 fL High 6.5-10.0 [facility] Comment on above: Performed By: #### L LF5026, JNK3328, GCN0239, ROQ9519 ####[address] [address] RBC (Bld) [#/Vol] 3.61 10*6/uL Low 4.00-5.20 [facility] Comment on above: Performed By: #### L AL8293, DVO6054, HST7393, VIV4599 ####[address] [address] WBC (Bld) [#/Vol] 5.7 10*3/uL Normal 4.5-11.0 [facility] Comment on above: Performed By: #### L TB4628, LWV7770, YMT4926, TQF1415 ####BABATUNDE [address] [address] COMPREHENSIVE METABOLIC PANE [place] 09-08-2024 Albumin [Mass/Vol] 2.7 g/dL Low 3.2-5.0 [facility] Comment on above: Order Comment: Rodriguez d to and read back by amy flores in u (gluc), at 03:02 on 09/08/2024,KMP Performed By: #### L DW7228, ETE8463, QJL2999, ASN6820 ####[place] [address] Albumin/Globulin [Mass ratio] 0.8 {ratio} Normal [facility] Comment on above: Order Comment: Rodriguez d to and read back by amy flores in imu (gluc), at 03:02 on 09/08/2024,KMP Performed By: #### L CD2092, QMU9172, EBZ5758, GVC4638 ####BABAT[place] [id number] ALP [Catalytic activity/Vol] 115 U/L Normal 42-121 [facility] Comment on above: Order Comment: Rodriguez d to and read back by amy flores in imu (gluc), at 03:02 on 09/08/2024,KMP Performed By: #### L UU6897, DYO3443, VZQ9282, EDJ2388 ####[facility] [address] [address] ALT [Catalytic activity/Vol] 88 U/L High 10-60 [facility] Comment on above: Order Comment: Rodriguez d to and read back by amy flores in imu (gluc), at 03:02 on 09/08/2024,KMP Performed By: #### L VT5960, LBV7474, RLL1111, EOZ9899 ####[place] [address] Anion gap [Moles/Vol] 5 mmol/L Normal [facility] Comment on above: Order Comment: Rodriguez d to and read back by amy flores in u (gluc), at 03:02 on 09/08/2024,KMP Performed By: #### L DG6315, ZQG7327, NJK7587, EUW0805 ####[place] [address] AST [Catalytic activity/Vol] 150 U/L High 10-42 [facility] Comment on above: Order Comment: Rodriguez d to and read back by amy flores in u (gluc), at 03:02 on 09/08/2024,KMP Performed By: #### L PO4032, LPP5999, BRY5988, LIQ5850 ####[place] [address] B/C 10 Normal 10-20 [facility] Comment on above: Order Comment: Rodriguez d to and read back by amy flores in u (gluc), at 03:02 on 09/08/2024,KMP Performed By: #### L PG5296, ULV8777, OLD4360, UQO1086 ####[place] [address] Bilirubin.direct [Mass/Vol] 1.4 mg/dL High 0.2-1.0 [facility] Comment on above: Order Comment: Rodriguez d to and read back by amy flores in u (gluc), at 03:02 on 09/08/2024,KMP Performed By: #### L EN2831, IZP2292, EDK6197, WAZ5266 ####[place] [address] Calcium [Mass/Vol] 8.5 mg/dL Normal 8.5-10.5 [facility] Comment on above: Order Comment: Rodriguez d to and read back by amy flores in u (gluc), at 03:02 on 09/08/2024,KMP Performed By: #### L EY7857, QVI4755, IVR6727, YVG8685 ####[facility] [address] [place] [id number] Chloride [Moles/Vol] 100 mmol/L Low 101-111 [facility] Comment on above: Order Comment: Rodriguez d to and read back by amy flores in u (gluc), at 03:02 on 09/08/2024,KMP Performed By: #### L VN2771, CBC8061, GLL0489, LVE0541 ####[facility] [address] [place] [address] CO2 [Moles/Vol] 27 mmol/L Normal 21-31 [facility] Comment on above: Order Comment: Rodriguez d to and read back by amy flores in u (gluc), at 03:02 on 09/08/2024,KMP Performed By: #### L YY8842, QMY8894, HPJ0616, HNT8812 ####[facility] [address] [place] [address] Creatinine [Mass/Vol] 0.9 mg/dL Normal 0.4-1.0 [facility] Comment on above: Order Comment: Nichole d to and read back by amy flores in u (gluc), at 03:02 on 09/08/2024,KMP Performed By: #### L [id number], [id number], [id number], DIH0362 ####[address] [address] GFR/1.73 sq M.predicted MDRD (S/P/Bld) [Vol rate/Area] 66 mL/min/{1.73_m2} Normal [facility] Comment on above: Order Comment: Nichole d to and read back by amy [...] mL/min or less Performed By: #### L [id number], [id number], XMA3723, QSH4605 ####[place] [address] Glucose [Mass/Vol] 55 mg/dL Critically low 70-110 [facility] Comment on above: Order Comment: Rodriguez d to and read back by amy flores in u (gluc), at 03:02 on 09/08/2024,KMP Performed By: #### L [id number], NJC3094, [id number], BGT1324 ####[place] [address] Osmolality [Osmolality] 261 mosm/kg Low 266-309 [facility] Comment on above: Order Comment: Rodriguez d to and read back by amy flores in u (gluc), at 03:02 on 09/08/2024,KMP Performed By: #### L AH1617, SLM8854, TBX7861, WCE4674 ####[place] [address] Potassium [Moles/Vol] 3.9 mmol/L Normal 3.6-5.0 [facility] Comment on above: Order Comment: Rodriguez d to and read back by amy flores in u (gluc), at 03:02 on 09/08/2024,KMP Performed By: #### L TO8926, OBZ9273, ARM5967, AXS7263 ####[place] [address] Protein [Mass/Vol] 6.0 g/dL Low 6.1-7.8 [facility] Comment on above: Order Comment: Rodriguez d to and read back by amy flores in u (gluc), at 03:02 on 09/08/2024,KMP Performed By: #### L [id number], AQN8851, YPA4964, FAA2286 ####[place] [address] Sodium [Moles/Vol] 132 mmol/L Low 135-145 [facility] Comment on above: Order Comment: Nichole connelly to and read back by amy flores in imu (gluc), at 03:02 on 09/08/2024,KMP Performed By: #### L [id number], HBX8891, IZY0205, [id number] ####[place] [address] [address] Urea nitrogen [Mass/Vol] 9 mg/dL Normal 2-32 [facility] Comment on above: Order Comment: Nichole connelly to and read back by amy flores in imu (gluc), at 03:02 on 09/08/2024,KMP Performed By: #### L YG3145, MET1729, JBD6004, NRR7407 ####BABATUNDE [address] [address] GLUCOSE, GLUCOMETERon 2023 Glucose [Mass/Vol] 144 mg/dL High 70-110 [facility] Comment on above: Performed By: #### L ZB3057 ####BABATUNDE [address] [address] Glucose [Mass/Vol] 103 mg/dL Normal 70-110 [facility] Comment on above: Performed By: #### L SR6398 ####BABATUNDE [address] [address] Glucose [Mass/Vol] 141 mg/dL High 70-110 [facility] Comment on above: Performed By: #### L HW6796 ####BABATUNDE [address] [address] Glucose [Mass/Vol] 105 mg/dL Normal 70-110 [facility] Comment on above: Performed By: #### L YC5055 ####BABSC [address] [address] Glucose [Mass/Vol] 57 mg/dL Critically low 70-110 [facility] Comment on above: Performed By: #### L LY6957 ####BABATUNDE [address] [address] Glucose [Mass/Vol] 198 mg/dL High 70-110 [facility] Comment on above: Performed By: #### L TG6653 ####[place] [address] MAGNESIUMon 09-08-2024 Magnesium [Mass/Vol] 1.7 mg/dL Normal 1.7-2.8 [facility] Comment on above: Performed By: #### L JK5285 ####[place] [address] Magnesium [Mass/Vol] 1.5 mg/dL Low 1.7-2.8 [facility] Comment on above: Order Comment: Rodriguez d to and read back by amy flores in imu (gluc), at 03:02 on 09/08/2024,KMP Performed By: #### L HB2886, YGE5165, ALD5623, FZU2977 ####[place] [address] AMMONIAon 09-07-2024 Ammonia (P) [Moles/Vol] 75 umol/L High 11-50 [facility] Comment on above: Performed By: #### L TK6405, JAY6393, FSF7046, NLB6270 ####[place] [address] CBC w/ Differentialon 2023 Basophil Abs. 0.0 10*3/uL Normal 0.0-0.1 [facility] Comment on above: Order Comment: Rodriguez d to and read back by Carson CORONEL Called, at 02:12 on 09/07/2024, SMS Performed By: #### L VX1344, FUJ6989, VHG9791, DRX2013 ####[place] [address] Basophils/100 WBC (Bld) 0.9 % Normal 0.0-1.0 [facility] Comment on above: Order Comment: Rodriguez d to and read back by Carson CORONEL Called, at 02:12 on 09/07/2024, SMS Performed By: #### L MW0968, UYG4464, XIB5776, WRL7002 ####[place] [address] Differential type Auto Normal [facility] Comment on above: Order Comment: Rodriguez d to and read back by Carson CORONEL Called, at 02:12 on 09/07/2024, SMS Performed By: #### L SO6306, LQR7238, XWP8813, AIK7780 ####[place] [address] Eosinophils (Bld) [#/Vol] 0.2 10*3/uL Normal 0.0-0.5 [facility] Comment on above: Order Comment: Rodriguez d to and read back by Carson CORONEL Called, at 02:12 on 09/07/2024, SMS Performed By: #### L EI2820, DUY2221, LJC8511, FFV1601 ####[place] [address] Eosinophils/100 WBC (Bld) 3.8 % Normal 0.3-5.0 [facility] Comment on above: Order Comment: Rodriguez d to and read back by Carson CORONEL Called, at 02:12 on 09/07/2024, SMS Performed By: #### L RV3261, KPE4950, VOP8053, XYF9676 ####[place] [address] Erythrocyte distribution width (RBC) [Ratio] 16.0 % Normal 10.7-18.7 [facility] Comment on above: Order Comment: Rodriguez d to and read back by Carson CORONEL Called, at 02:12 on 09/07/2024, SMS Performed By: #### L NL3226, HCI2177, JXV5622, RDK1086 ####[place] [address] Hematocrit (Bld) [Volume fraction] 32.1 % Low 33.0-51.0 [facility] Comment on above: Order Comment: Rodriguez d to and read back by Carson M. PLAT. Called, at 02:12 on 09/07/2024, SMS Performed By: #### L NC4646, HSK7390, HGN6391, EPE0388 ####[facility] [id number] [place] [address] Hemoglobin (Bld) [Mass/Vol] 11.0 g/dL Low 12.0-16.0 [facility] Comment on above: Order Comment: Rodriguez d to and read back by Carson CORONEL Called, at 02:12 on 09/07/2024, SMS Performed By: #### L JI4039, DAF0417, SEC1694, KMJ1909 ####[place] [address] Lymphocytes (Bld) [#/Vol] 1.2 10*3/uL Normal 1.1-5.0 [facility] Comment on above: Order Comment: Rodriguez d to and read back by Carson CORONEL Called, at 02:12 on 09/07/2024, SMS Performed By: #### L EX1365, PGE7003, GVO4311, EWV3983 ####[place] [address] Lymphocytes/100 WBC (Bld) 23.8 % Low 24.0-44.0 [facility] Comment on above: Order Comment: Rodriguez d to and read back by Carson CORONEL Called, at 02:12 on 09/07/2024, SMS Performed By: #### L QJ2289, WKI2389, ZJD4249, RMI9668 ####[facility] [address] [place] [address] MCH (RBC) [Entitic mass] 32.9 pg Normal 26.0-34.0 [facility] Comment on above: Order Comment: Rodriguez d to and read back by Carson CORONEL Called, at 02:12 on 09/07/2024, SMS Performed By: #### L JF9604, UDN9348, WGT1208, POP3767 ####[facility] [address] [address] MCHC (RBC) [Mass/Vol] 34.4 g/dL Normal 32.0-36.0 [facility] Comment on above: Order Comment: Rodriguez d to and read back by Carson CORONEL Called, at 02:12 on 09/07/2024, SMS Performed By: #### L ON6644, OAM4188, GSS1618, HVP9155 ####BABSC [address] [address] MCV (RBC) [Entitic vol] 95.8 fL Normal 80.0-100.0 [facility] Comment on above: Order Comment: Rodriguez d to and read back by Carson CORONEL Called, at 02:12 on 09/07/2024, SMS Performed By: #### L SH9108, UTH9396, FZZ7656, ZHQ8729 ####[place] [address] Monocytes (Bld) [#/Vol] 0.6 10*3/uL Normal 0.0-1.4 [facility] Comment on above: Order Comment: Rodriguez d to and read back by Carson CORONEL Called, at 02:12 on 09/07/2024, SMS Performed By: #### L AR5582, KKN0125, YFQ7754, SBH3650 ####[address] [address] Monocytes/100 WBC (Bld) 12.2 % Normal 2.1-13.3 [facility] Comment on above: Order Comment: Rodriguez d to and read back by Carson CORONEL Called, at 02:12 on 09/07/2024, SMS Performed By: #### L PT6270, NEQ1563, LZH8166, ESL0565 ####[id number] [place] [address] Neutrophils, Abs. 2.9 10*3/uL Normal 1.5-8.5 [facility] Comment on above: Order Comment: Rodriguez d to and read back by Carson CORONEL Called, at 02:12 on 09/07/2024, SMS Performed By: #### L DM5637, BWH7619, FJE4374, MUX5816 ####[place] [address] Neutrophils/100 WBC (Bld) 59.3 % Normal 35.0-66.0 [facility] Comment on above: Order Comment: Rodriguez d to and read back by Carson CORONEL Called, at 02:12 on 09/07/2024, SMS Performed By: #### L KH8543, PIZ7787, POP5121, MWH1800 ####[place] [address] Platelet Cnt 49 10*3/uL Critically low 150-450 [facility] Comment on above: Order Comment: Rodriguez d to and read back by Carson CORONEL Called, at 02:12 on 09/07/2024, SMS Performed By: #### L SX6856, CYO0636, QLL0726, FFF6512 ####[place] [address] Platelet mean volume (Bld) [Entitic vol] 10.4 fL High 6.5-10.0 [facility] Comment on above: Order Comment: Rodriguez d to and read back by Carson CORONEL Called, at 02:12 on 09/07/2024, SMS Performed By: #### L TH2894, AII1694, MIR4072, BDJ6608 ####[place] [address] RBC (Bld) [#/Vol] 3.35 10*6/uL Low 4.00-5.20 [facility] Comment on above: Order Comment: Rodriguez d to and read back by Carson CORONEL Called, at 02:12 on 09/07/2024, SMS Performed By: #### L ZE2525, AJO1219, TXE7714, IVF7224 ####[place] [address] WBC (Bld) [#/Vol] 4.9 10*3/uL Normal 4.5-11.0 [facility] Comment on above: Order Comment: Rodriguez d to and read back by Carson M. PLAT. Called, at 02:12 on 09/07/2024, SMS Performed By: #### L PS5821, LUN1258, JXV3261, XTH5991 ####[place] [address] COMPREHENSIVE METABOLIC PANE Merritt 09-07-2024 Albumin [Mass/Vol] 2.4 g/dL Low 3.2-5.0 [facility] Comment on above: Performed By: #### L QM9369, TMQ7130, ZBM4176, BYZ3352 ####BABATUNDE [address] [address] Albumin/Globulin [Mass ratio] 0.8 {ratio} Normal [facility] Comment on above: Performed By: #### L VJ9448, EBK8497, SGN7471, YYA4948 ####BABATUNDE [address] [address] ALP [Catalytic activity/Vol] 111 U/L Normal 42-121 [facility] Comment on above: Performed By: #### L MH3326, AJS5072, RBW1209, TGJ3333 ####BABATUNDE [address] [address] ALT [Catalytic activity/Vol] 82 U/L High 10-60 [facility] Comment on above: Performed By: #### L DA4857, TDO0197, UAW1582, LQB7966 ####BABATUNDE [address] [address] Anion gap [Moles/Vol] 4 mmol/L Normal [facility] Comment on above: Performed By: #### L SG2910, EBL5807, ZQO7879, UPN8565 ####BABATUNDE [address] [address] AST [Catalytic activity/Vol] 133 U/L High 10-42 [facility] Comment on above: Performed By: #### L CK0399, BCQ9685, VPI1561, UIO6659 ####BABATUNDE [address] [address] B/C 13 Normal 10-20 [facility] Comment on above: Performed By: #### L UU8278, EIW4689, XTH4035, ZIZ7638 ####[facility] [address] [place] [address] Bilirubin.direct [Mass/Vol] 1.2 mg/dL High 0.2-1.0 [facility] Comment on above: Performed By: #### L AT4891, POH0930, TEM4466, DMM7122 ####[facility] [address] [place] [address] Calcium [Mass/Vol] 8.4 mg/dL Low 8.5-10.5 [facility] Comment on above: Performed By: #### L KF1218, DFZ3394, YHB5461, LBI3182 ####[address] [address] Chloride [Moles/Vol] 104 mmol/L Normal 101-111 [facility] Comment on above: Performed By: #### L WX2252, MVG9008, HCY3383, UXS5422 ####[facility] [address] [place] [address] CO2 [Moles/Vol] 26 mmol/L Normal 21-31 [facility] Comment on above: Performed By: #### L MN1825, AIL0201, LWK0941, URO9478 ####[address] [address] Creatinine [Mass/Vol] 0.8 mg/dL Normal 0.4-1.0 [facility] Comment on above: Performed By: #### L TS6157, NBR0344, QUY1534, HON0736 ####[address] [address] GFR/1.73 sq M.predicted MDRD (S/P/Bld) [Vol rate/Area] 76 mL/min/{1.73_m2} Normal [facility] Comment on above: Result Comment: *The estimated Glomerular Filtration Rate(EGFR) may not be accurate for children under the age of 18 yrs. To estimate the GFR for -Americans multiply the result provided by 1.21.Stage 1 90 mL/min or greaterStage 2 60-89 mL/minStage 3 30-59 mL/minStage 4 15-29 mL/minStage 5 14 mL/min or less Performed By: #### L XY9709, ACM7441, YAS5074, LNI6305 ####BABATUNDE [address] [address] Glucose [Mass/Vol] 91 mg/dL Normal 70-110 [facility] Comment on above: Performed By: #### L LK3974, AQO9525, BFI2935, IJX7111 ####BABATUNDE [address] [address] Osmolality [Osmolality] 267 mosm/kg Normal 266-309 [facility] Comment on above: Performed By: #### L PX9199, XFN6718, DFY5560, PUS7341 ####BABATUNDE [address] [address] Potassium [Moles/Vol] 4.1 mmol/L Normal 3.6-5.0 [facility] Comment on above: Performed By: #### L MF5890, GIJ3595, VOQ1294, HIL7322 ####BABATUNDE [address] [address] Protein [Mass/Vol] 5.5 g/dL Low 6.1-7.8 [facility] Comment on above: Performed By: #### L MX9706, LGF5524, JFL5639, JCX1479 ####BABATUNDE [address] [address] Sodium [Moles/Vol] 134 mmol/L Low 135-145 [facility] Comment on above: Performed By: #### L QR3829, SLP2013, XOO0287, DFB9965 ####BABATUNDE [address] [address] Urea nitrogen [Mass/Vol] 10 mg/dL Normal 2-32 [facility] Comment on above: Performed By: #### L AN5994, NGW7538, KEP6265, ZTS7818 ####BABATUNDE [address] [address] MAGNESIUMon 09-07-2024 Magnesium [Mass/Vol] 1.6 mg/dL Low 1.7-2.8 [facility] Comment on above: Performed By: #### L BS5868, OIA0515, MLM1858, QOK0064 ####[facility] [address] [place] [address] SURGICAL CASESon 09-07-2024 SURGICAL CASES Normal [facility] Comment on above: Performed By: #### L YQ3467 ####[place] [address] Upper GI endoscopyon 024 Upper GI endoscopy Normal [facility] AMMONIAon 09-06-2024 Ammonia (P) [Moles/Vol] 62 umol/L High - [facility] Comment on above: Performed By: #### L NU2520, MFR4784, RVT6880, VRF6781 ####[place] [address] Albumin, Body Fluidon 2023 Albumin, Body Fluid 420 mg/dL Normal [facility] Comment on above: Order Comment: Ascit es Result Comment: INTE RPRETIVE INFORMATION: Albumin, Body FluidA reference interval has not been established for body fluidspecimens.This test was developed and its performance characteristicsdetermined by [facility]. It has not been cleared orapproved by the U.S. Food and Drug Administration. This test wasperformed in a CLIA-certified laboratory and is intended forclinical purposes.Performed By: [facility] [place] [id number] Director: Elvin Diaz MD, PhDCLIA Number: [id number] Performed By: #### L XH6755, LIL6047, CQR4700, YQI5438, NNQ5971, VHL8997 ####[place] [address] Source: ascites Normal [facility] Comment on above: Order Comment: Ascit es Result Comment: Coni ected result;Previously reported as ascites, by V/AUT at 15:51 on 09/04/24 Performed By: #### L YV0449, IYX0705, AIB5150, KBK2235, TEC4175, PNX6038 ####[place] [address] CBC w/ Differentialon 2023 Basophil Abs. 0.0 10*3/uL Normal 0.0-0.1 [facility] Comment on above: Performed By: #### L OC3704, SUY5659, PSW2141, KAT5677 ####[place] [address] Basophils/100 WBC (Bld) 0.7 % Normal 0.0-1.0 [facility] Comment on above: Performed By: #### L XM8646, CPT5201, CAC1623, UAP8037 ####[place] [address] Differential type Auto Normal [facility] Comment on above: Performed By: #### L JS9257, DWM1689, LLT0210, USZ3215 ####[place] [address] Eosinophils (Bld) [#/Vol] 0.2 10*3/uL Normal 0.0-0.5 [facility] Comment on above: Performed By: #### L FI1564, YRX5178, WEB7564, DAZ5399 ####[place] [address] Eosinophils/100 WBC (Bld) 4.5 % Normal 0.3-5.0 [facility] Comment on above: Performed By: #### L VB0329, CKM5511, PKH2807, PBM1062 ####[place] [address] Erythrocyte distribution width (RBC) [Ratio] 16.0 % Normal 10.7-18.7 [facility] Comment on above: Performed By: #### L OQ2107, IQV8090, IYT6922, FAW6391 ####[place] [address] Hematocrit (Bld) [Volume fraction] 32.5 % Low 33.0-51.0 [facility] Comment on above: Performed By: #### L TG4226, XGF6180, OVA1503, HPM2082 ####[place] [address] Hemoglobin (Bld) [Mass/Vol] 11.2 g/dL Low 12.0-16.0 [facility] Comment on above: Performed By: #### L VO4846, HDF9156, XDD4971, RFD6158 ####[place] [address] Lymphocytes (Bld) [#/Vol] 1.1 10*3/uL Normal 1.1-5.0 [facility] Comment on above: Performed By: #### L XT3532, AIS3586, YCT4171, AZW1618 ####[place] [address] Lymphocytes/100 WBC (Bld) 19.8 % Low 24.0-44.0 [facility] Comment on above: Performed By: #### L UN3260, PCA6871, CPU3602, BBQ2023 ####[place] [address] MCH (RBC) [Entitic mass] 32.8 pg Normal 26.0-34.0 [facility] Comment on above: Performed By: #### L DJ1038, EJF1523, UNO0890, UNT2534 ####[place] [address] MCHC (RBC) [Mass/Vol] 34.4 g/dL Normal 32.0-36.0 [facility] Comment on above: Performed By: #### L CD0465, LQB8403, ITS1305, FVU4375 ####[place] [address] MCV (RBC) [Entitic vol] 95.4 fL Normal 80.0-100.0 [facility] Comment on above: Performed By: #### L HU3442, WUL4134, VOR9628, BWR5054 ####[place] [address] Monocytes (Bld) [#/Vol] 0.7 10*3/uL Normal 0.0-1.4 [facility] Comment on above: Performed By: #### L TB6711, WAR5302, NSG6696, PWO2076 ####[place] [address] Monocytes/100 WBC (Bld) 12.2 % Normal 2.1-13.3 [facility] Comment on above: Performed By: #### L HR6535, SKB9884, YTE2849, OBB9848 ####[place] [address] Neutrophils, Abs. 3.4 10*3/uL Normal 1.5-8.5 [facility] Comment on above: Performed By: #### L EZ2131, CYC0558, GAF8401, GPU5043 ####[place] [address] Neutrophils/100 WBC (Bld) 62.8 % Normal 35.0-66.0 [facility] Comment on above: Performed By: #### L YQ1203, DUI6906, RVT6082, ORX9485 ####[place] [address] Platelet Cnt 51 10*3/uL Low 150-450 [facility] Comment on above: Performed By: #### L BN0530, OLH7604, ISH6467, BLR7740 ####[place] [address] Platelet mean volume (Bld) [Entitic vol] 10.7 fL High 6.5-10.0 [facility] Comment on above: Performed By: #### L MI1311, SXW3754, XBU5768, GNA5984 ####[place] [address] RBC (Bld) [#/Vol] 3.41 10*6/uL Low 4.00-5.20 [facility] Comment on above: Performed By: #### L YH4792, AXO3365, MUR7437, IIZ5416 ####[place] [address] WBC (Bld) [#/Vol] 5.4 10*3/uL Normal 4.5-11.0 [facility] Comment on above: Performed By: #### L AJ3549, NXP6529, PJN1875, DFX0843 ####[place] [address] COMPREHENSIVE METABOLIC PANE Merritt 09-06-2024 Albumin [Mass/Vol] 2.6 g/dL Low 3.2-5.0 [facility] Comment on above: Performed By: #### L XV5397, IBO8241, KBB8108, FOB8415 ####[place] [address] Albumin/Globulin [Mass ratio] 0.9 {ratio} Normal [facility] Comment on above: Performed By: #### L PX4358, MUD7874, KCJ5667, MIN3555 ####[place] [address] ALP [Catalytic activity/Vol] 118 U/L Normal 42-121 [facility] Comment on above: Performed By: #### L MK6903, PKH9887, SDT5772, LIL0637 ####[place] [address] ALT [Catalytic activity/Vol] 84 U/L High 10-60 [facility] Comment on above: Performed By: #### L DP4145, ATR0276, WQH4482, RZA2271 ####[place] [address] Anion gap [Moles/Vol] 3 mmol/L Normal [facility] Comment on above: Performed By: #### L IJ4143, NES5072, SWH9152, DIJ1283 ####[place] [address] AST [Catalytic activity/Vol] 132 U/L High 10-42 [facility] Comment on above: Performed By: #### L IF4897, GPJ2188, SXI4301, BIR0525 ####[place] [address] B/C 8 Low 10-20 [facility] Comment on above: Performed By: #### L YY6108, YUN6442, PMX7515, MCQ5132 ####[place] [address] Bilirubin.direct [Mass/Vol] 1.5 mg/dL High 0.2-1.0 [facility] Comment on above: Performed By: #### L RK9965, BEZ6454, NWW7984, URR8533 ####[place] [address] Calcium [Mass/Vol] 8.7 mg/dL Normal 8.5-10.5 [facility] Comment on above: Performed By: #### L YL4457, HBB7744, NJO6549, WIN4850 ####[place] [address] Chloride [Moles/Vol] 105 mmol/L Normal 101-111 [facility] Comment on above: Performed By: #### L IG0879, GHY4332, PHF8021, OOY0437 ####[place] [address] CO2 [Moles/Vol] 27 mmol/L Normal 21-31 [facility] Comment on above: Performed By: #### L YU5168, LCO9237, SJJ1328, LQL1870 ####[place] [address] Creatinine [Mass/Vol] 0.9 mg/dL Normal 0.4-1.0 [facility] Comment on above: Performed By: #### L MK3187, GLZ0617, GRF1697, SBS3800 ####[place] [address] GFR/1.73 sq M.predicted MDRD (S/P/Bld) [Vol rate/Area] 66 mL/min/{1.73_m2} Normal [facility] Comment on above: Result Comment: *The estimated Glomerular Filtration Rate(EGFR) may not be accurate for children under the age of 18 yrs. To estimate the GFR for -Americans multiply the result provided by 1.21.Stage 1 90 mL/min or greaterStage 2 60-89 mL/minStage 3 30-59 mL/minStage 4 15-29 mL/minStage 5 14 mL/min or less Performed By: #### L IH7375, ZNW0889, SIG4961, GMO5020 ####BABATUN[place] [address] [address] Glucose [Mass/Vol] 95 mg/dL Normal 70-110 [facility] Comment on above: Performed By: #### L HZ5973, ASC2114, YUZ9104, HXM5200 ####BABATUNDE [address] [address] Osmolality [Osmolality] 268 mosm/kg Normal 266-309 [facility] Comment on above: Performed By: #### L HJ1251, BKV5513, FKU1225, DMD4821 ####BABATUNDE [address] [address] Potassium [Moles/Vol] 4.2 mmol/L Normal 3.6-5.0 [facility] Comment on above: Performed By: #### L LD0496, TSR0876, DWL4677, UQL2730 ####BABATUN[place] [address] [address] Protein [Mass/Vol] 5.6 g/dL Low 6.1-7.8 [facility] Comment on above: Performed By: #### L VG4383, OJD8466, WVV1830, CNY9829 ####BABATUN[place] [address] [address] Sodium [Moles/Vol] 135 mmol/L Normal 135-145 [facility] Comment on above: Performed By: #### L WA8487, TRU0235, UZB1160, GWG1620 ####BABATUNDE [address] [address] Urea nitrogen [Mass/Vol] 7 mg/dL Normal 2-32 [facility] Comment on above: Performed By: #### L LK6243, TSA2600, PEO4680, DKP7151 ####[facility] [place] [address] MAGNESIUMon 09-06-2024 Magnesium [Mass/Vol] 1.5 mg/dL Low 1.7-2.8 [facility] Comment on above: Performed By: #### L CR5654, RZP0246, LGX6201, NGP2460 ####[place] [address] AFP TUMOR MARKER, Son 2023 AFP TUMOR MARKER, S 30.08 ng/mL Abnormal < 6.00 [facility] Comment on above: Order Comment: [id number] [...] of malignant disease. Performed By: #### L SU0992 ####[address] [address] AMMONIAon 09-05-2024 Ammonia (P) [Moles/Vol] 62 umol/L High 11-50 [facility] Comment on above: Performed By: #### L UH8024, ZYH6856, RIF8294, BPE7940 ####[place] [id number] CBC w/ Differentialon 2023 Basophil Abs. 0.0 10*3/uL Normal 0.0-0.1 [facility] Comment on above: Order Comment: Nichole connelly to and read back by AICHA DUMONT/ AMY Garcia at 03:19 on 09/05/2024, TB3 Performed By: #### L IL2110, YXU3747, LZL5563, WMI6909 ####[facility]DM[facility] [address] [address] Basophils/100 WBC (Bld) 0.8 % Normal 0.0-1.0 [facility] Comment on above: Order Comment: Rodriguez d to and read back by U PLT/ AMY B, at 03:19 on 09/05/2024, TB3 Performed By: #### L TE8516, EHI9950, DIF8989, FKH1740 ####[place] [address] Differential type Auto Normal [facility] Comment on above: Order Comment: Rodriguez d to and read back by U PLT/ AMY B, at 03:19 on 09/05/2024, TB3 Performed By: #### L VV8056, ZZW1159, YZN2973, JGS9075 ####[place] [address] Eosinophils (Bld) [#/Vol] 0.2 10*3/uL Normal 0.0-0.5 [facility] Comment on above: Order Comment: Rodriguez d to and read back by U PLT/ AMY B, at 03:19 on 09/05/2024, TB3 Performed By: #### L UZ3940, MJE0108, UPG7394, YMI2838 ####[place] [address] Eosinophils/100 WBC (Bld) 3.0 % Normal 0.3-5.0 [facility] Comment on above: Order Comment: Rodriguez d to and read back by U PLT/ AMY B, at 03:19 on 09/05/2024, TB3 Performed By: #### L BB1325, MBQ6184, RKN1549, DMB0517 ####[place] [address] Erythrocyte distribution width (RBC) [Ratio] 15.9 % Normal 10.7-18.7 [facility] Comment on above: Order Comment: Rodriguez d to and read back by U PLT/ AMY B, at 03:19 on 09/05/2024, TB3 Performed By: #### L JR8949, IYU2839, QHF4783, EQK8091 ####[place] [address] Hematocrit (Bld) [Volume fraction] 30.7 % Low 33.0-51.0 [facility] Comment on above: Order Comment: Rodriguez d to and read back by IMU PLT/ AMY B, at 03:19 on 09/05/2024, TB3 Performed By: #### L [id number], [id number], DOR1748, LQG5606 ####[address] [address] Hemoglobin (Bld) [Mass/Vol] 10.5 g/dL Low 12.0-16.0 [facility] Comment on above: Order Comment: Rodriguez d to and read back by U PLT/ AMY B, at 03:19 on 09/05/2024, TB3 Performed By: #### L CQ3137, LMP9558, TLC7752, HSR3622 ####[place] [address] Lymphocytes (Bld) [#/Vol] 1.0 10*3/uL Low 1.1-5.0 [facility] Comment on above: Order Comment: Rodriguez d to and read back by U PLT/ AMY B, at 03:19 on 09/05/2024, TB3 Performed By: #### L XJ0164, BQN9488, JUX6331, [id number] ####[address] [address] Lymphocytes/100 WBC (Bld) 19.6 % Low 24.0-44.0 [facility] Comment on above: Order Comment: Rodriguez d to and read back by IMU PLT/ AMY B, at 03:19 on 09/05/2024, TB3 Performed By: #### L [id number], CDG6854, PCC8313, YTK2055 ####[address] [address] MCH (RBC) [Entitic mass] 32.4 pg Normal 26.0-34.0 [facility] Comment on above: Order Comment: Rodriguez d to and read back by IMU PLT/ AMY B, at 03:19 on 09/05/2024, TB3 Performed By: #### L FC6428, MTZ0102, VAO1676, [id number] ####[place] [address] MCHC (RBC) [Mass/Vol] 34.1 g/dL Normal 32.0-36.0 [facility] Comment on above: Order Comment: Rodriguez d to and read back by U PLT/ AMY B, at 03:19 on 09/05/2024, TB3 Performed By: #### L TL0342, BDI8349, QAU2767, HRB7360 ####[place] [address] [facility] (RBC) [Entitic vol] 94.9 fL Normal 80.0-100.0 [facility] Comment on above: Order Comment: Rodriguez d to and read back by U PLT/ AMY B, at 03:19 on 09/05/2024, TB3 Performed By: #### L AJ9613, KFB4810, OAB6256, MYN8425 ####[place] [address] Monocytes (Bld) [#/Vol] 0.6 10*3/uL Normal 0.0-1.4 [facility] Comment on above: Order Comment: Rodriguez d to and read back by U PLT/ AMY B, at 03:19 on 09/05/2024, TB3 Performed By: #### L HS9958, JXC2537, LEG3637, LYP8258 ####[place] [address] Monocytes/100 WBC (Bld) 11.9 % Normal 2.1-13.3 [facility] Comment on above: Order Comment: Rodriguez d to and read back by U PLT/ AMY B, at 03:19 on 09/05/2024, TB3 Performed By: #### L IH1385, JNA2129, PEO0638, VVK7499 ####[place] [address] Neutrophils, Abs. 3.3 10*3/uL Normal 1.5-8.5 [facility] Comment on above: Order Comment: Rodriguez d to and read back by IMU PLT/ AMY B, at 03:19 on 09/05/2024, TB3 Performed By: #### L QN6509, DFN0172, VWP3145, NYS6470 ####[facility] [address] [place] [address] Neutrophils/100 WBC (Bld) 64.7 % Normal 35.0-66.0 [facility] Comment on above: Order Comment: Rodriguez d to and read back by IMU PLT/ AMY B, at 03:19 on 09/05/2024, TB3 Performed By: #### L ZG3325, BNT7639, NTB0249, RFP5298 ####[address] [address] Platelet Cnt 43 10*3/uL Critically low 150-450 [facility] Comment on above: Order Comment: Rodriguez d to and read back by U PLT/ AMY B, at 03:19 on 09/05/2024, TB3 Performed By: #### L IP5394, IUX1848, TSF8680, QBV4485 ####[address] [address] Platelet mean volume (Bld) [Entitic vol] 9.9 fL Normal 6.5-10.0 [facility] Comment on above: Order Comment: Rodriguez d to and read back by IMU PLT/ AMY B, at 03:19 on 09/05/2024, TB3 Performed By: #### L DD3166, XMG7918, TFF5502, KSW7148 ####[facility] [address] [place] [address] RBC (Bld) [#/Vol] 3.23 10*6/uL Low 4.00-5.20 [facility] Comment on above: Order Comment: Rodriguez d to and read back by IMU PLT/ AMY B, at 03:19 on 09/05/2024, TB3 Performed By: #### L OB9233, SQF9674, TPZ7587, HMV3247 ####[place] [address] WBC (Bld) [#/Vol] 5.1 10*3/uL Normal 4.5-11.0 [facility] Comment on above: Order Comment: Rodriguez d to and read back by AICHA DUMONT/ AMY Garcia at 03:19 on 09/05/2024, TB3 Performed By: #### L ED0670, JLH2444, GCO2461, SHE7496 ####[place] [address] COMPREHENSIVE METABOLIC PANE Merritt 09-05-2024 Albumin [Mass/Vol] 2.5 g/dL Low 3.2-5.0 [facility] Comment on above: Performed By: #### L XJ0324, VZH1897, TAR3933, IHD4673 ####[place] [address] Albumin/Globulin [Mass ratio] 0.9 {ratio} Normal [facility] Comment on above: Performed By: #### L CN8991, JYB2617, WUZ8334, UGK6364 ####[place] [address] ALP [Catalytic activity/Vol] 106 U/L Normal 42-121 [facility] Comment on above: Performed By: #### L EO1070, URI4843, OJR3598, VGH4914 ####[place] [address] ALT [Catalytic activity/Vol] 82 U/L High 10-60 [facility] Comment on above: Performed By: #### L BJ8524, XJZ7832, OYW9207, YWX4777 ####[place] [address] Anion gap [Moles/Vol] 4 mmol/L Normal [facility] Comment on above: Performed By: #### L RG1914, SMZ4248, VAC1921, LYJ5827 ####[place] [address] AST [Catalytic activity/Vol] 128 U/L High 10-42 [facility] Comment on above: Performed By: #### L ZR6857, PNS6481, YEI4135, RIK0918 ####[place] [address] B/C 8 Low 10-20 [facility] Comment on above: Performed By: #### L RA3927, SAB2861, BPQ6674, JLE0117 ####[place] [address] Bilirubin.direct [Mass/Vol] 1.4 mg/dL High 0.2-1.0 [facility] Comment on above: Performed By: #### L UP4766, IKX9808, WNA5227, NXG4038 ####[place] [address] Calcium [Mass/Vol] 8.5 mg/dL Normal 8.5-10.5 [facility] Comment on above: Performed By: #### L EK5743, UFV6314, AOV4462, NNT2822 ####[place] [address] Chloride [Moles/Vol] 104 mmol/L Normal 101-111 [facility] Comment on above: Performed By: #### L KI3080, VVM9639, BHX2967, QBI2021 ####[place] [address] CO2 [Moles/Vol] 26 mmol/L Normal 21-31 [facility] Comment on above: Performed By: #### L WF8488, DNA7473, QNU3307, YVG4694 ####[place] [address] Creatinine [Mass/Vol] 0.9 mg/dL Normal 0.4-1.0 [facility] Comment on above: Performed By: #### L GR2277, HWA5948, VTR3529, MLG8357 ####[place] [address] GFR/1.73 sq M.predicted MDRD (S/P/Bld) [Vol rate/Area] 66 mL/min/{1.73_m2} Normal [facility] Comment on above: Result Comment: *The estimated Glomerular Filtration Rate(EGFR) may not be accurate for children under the age of 18 yrs. To estimate the GFR for -Americans multiply the result provided by 1.21.Stage 1 90 mL/min or greaterStage 2 60-89 mL/minStage 3 30-59 mL/minStage 4 15-29 mL/minStage 5 14 mL/min or less Performed By: #### L AQ4478, NBL9204, KPG8527, MQW8390 ####BABAT[place] [address] [address] Glucose [Mass/Vol] 132 mg/dL High 70-110 [facility] Comment on above: Performed By: #### L RJ7646, DDE4003, MBT5356, PWT9796 ####BABATUNDE [address] [address] Osmolality [Osmolality] 268 mosm/kg Normal 266-309 [facility] Comment on above: Performed By: #### L GG5745, TCQ1360, DKP7112, IBU2421 ####BABATUN[place] [address] [address] Potassium [Moles/Vol] 4.3 mmol/L Normal 3.6-5.0 [facility] Comment on above: Performed By: #### L LI7943, KYG0769, COR1103, WPJ4681 ####BABATUN[place] [address] [address] Protein [Mass/Vol] 5.3 g/dL Low 6.1-7.8 [facility] Comment on above: Performed By: #### L LI2961, UYF2281, EZF2767, VGN1545 ####BABAT[place] [address] [address] Sodium [Moles/Vol] 134 mmol/L Low 135-145 [facility] Comment on above: Performed By: #### L TM7279, ARA4612, GHO9477, IXM8963 ####BABATUN[place] [address] [address] Urea nitrogen [Mass/Vol] 7 mg/dL Normal 2-32 [facility] Comment on above: Performed By: #### L JF8165, ROL5712, YBX7706, MXI0069 ####[place] [address] MAGNESIUMon 09-05-2024 Magnesium [Mass/Vol] 1.7 mg/dL Normal 1.7-2.8 [facility] Comment on above: Performed By: #### L BR8246 ####[place] [address] Magnesium [Mass/Vol] 1.5 mg/dL Low 1.7-2.8 [facility] Comment on above: Performed By: #### L EP5451, QTW8276, VPA1635, IGW3521 ####[place] [address] UA w/ Culture reflexon 09-05 UR BACTERIA Many Abnormal NONE SEEN [facility] Comment on above: Performed By: #### L AY1741 ####[place] [address] UR MUCOUS None Seen Normal NONE SEEN [facility] Comment on above: Performed By: #### L MI6169 ####[place] [address] UR RBC 1 - 3 Normal 1-3 [facility] Comment on above: Performed By: #### L ZV6601 ####[place] [address] UR SQUAMOUS EPI 1 - 3 Normal 3-5 [facility] Comment on above: Performed By: #### L AL9456 ####[place] [address] UR WBC 1 - 3 Normal 1-3 [facility] Comment on above: Performed By: #### L OF7643 ####[place] [address] UR BILIRUBIN Negative Normal NEGATIVE [facility] Comment on above: Performed By: #### L BN8114 ####[place] [address] UR BLOOD 2 + mg/dL Abnormal NEGATIVE [facility] Comment on above: Performed By: #### L II7916 ####[place] [address] UR CLARITY Clear Normal CLEAR [facility] Comment on above: Performed By: #### L RX0871 ####[place] [address] UR COLOR Light-Yellow Normal YELLOW [facility] Comment on above: Performed By: #### L OZ2056 ####[place] [address] UR GLUCOSE Negative Normal NEGATIVE [facility] Comment on above: Performed By: #### L RP3312 ####[place] [address] UR KETONE Negative Normal NEGATIVE [facility] Comment on above: Performed By: #### L CD1683 ####[place] [address] UR LEUKOCYTE Negative Normal NEGATIVE [facility] Comment on above: Performed By: #### L WO9317 ####[place] [address] UR NITRITE Negative Normal NEGATIVE [facility] Comment on above: Performed By: #### L DL6622 ####[place] [address] UR PH 5.5 Normal 5.0-9.0 [facility] Comment on above: Performed By: #### L UE5348 ####[place] [address] UR PROTEIN Negative Normal NEGATIVE [facility] Comment on above: Performed By: #### L CI9240 ####[place] [address] UR SP GRAVITY 1.005 Normal 1.005-1.030 [facility] Comment on above: Performed By: #### L JD2095 ####[place] [address] UR UROBILINOGEN < 2.0 Normal <2.0 [facility] Comment on above: Performed By: #### L WK8112 ####[place] [address] AMMONIAon 09-04-2024 Ammonia (P) [Moles/Vol] 134 umol/L Critically high 11-50 [facility] Comment on above: Order Comment: Rodriguez d to and read back by willard vuong :plt, at 01:33 on 09/04/2024, KBMCalled to and read back by IMU AMM/ WILLARD Vuong, at 01:49 on 09/04/2024, TB3 Performed By: #### L DD7411, VOI2629, JZF7269, SMO1507 ####[place] [address] CBC w/ Differentialon 2023 Basophil Abs. 0.0 10*3/uL Normal 0.0-0.1 [facility] Comment on above: Performed By: #### L KK3717, NJY4471, HWH3011, RBK5188 ####[place] [address] Basophils/100 WBC (Bld) 0.8 % Normal 0.0-1.0 [facility] Comment on above: Performed By: #### L BU3061, MYM3273, FJC8589, JDP7253 ####[place] [address] Differential type Auto Normal [facility] Comment on above: Performed By: #### L AI3319, QRD5648, BYA4387, KCU6878 ####[facility] [address] [place] [address] Eosinophils (Bld) [#/Vol] 0.2 10*3/uL Normal 0.0-0.5 [facility] Comment on above: Performed By: #### L TI3656, LNO1958, EPC5089, BVU7292 ####[place] [address] Eosinophils/100 WBC (Bld) 4.3 % Normal 0.3-5.0 [facility] Comment on above: Performed By: #### L VD0616, VYY8213, SLS4909, FKX6060 ####[place] [address] Erythrocyte distribution width (RBC) [Ratio] 16.3 % Normal 10.7-18.7 [facility] Comment on above: Performed By: #### L HX7480, KZH9677, VJI9466, EQI4677 ####[place] [address] Hematocrit (Bld) [Volume fraction] 31.0 % Low 33.0-51.0 [facility] Comment on above: Performed By: #### L HW1557, EEN0262, ODO0972, UYK4202 ####[place] [address] Hemoglobin (Bld) [Mass/Vol] 10.5 g/dL Low 12.0-16.0 [facility] Comment on above: Performed By: #### L EZ6982, CUN7082, RMP7978, TVQ1135 ####[place] [address] Lymphocytes (Bld) [#/Vol] 0.9 10*3/uL Low 1.1-5.0 [facility] Comment on above: Performed By: #### L FY3580, FSQ2326, TNY2346, EPD4082 ####[place] [address] Lymphocytes/100 WBC (Bld) 20.0 % Low 24.0-44.0 [facility] Comment on above: Performed By: #### L EI0744, CQO6957, HCG5586, PRM2594 ####[place] [address] MCH (RBC) [Entitic mass] 32.0 pg Normal 26.0-34.0 [facility] Comment on above: Performed By: #### L XK7909, WYD7936, ZAD6267, LQU6937 ####[place] [address] MCHC (RBC) [Mass/Vol] 33.8 g/dL Normal 32.0-36.0 [facility] Comment on above: Performed By: #### L TR5529, EBQ9843, KKE7661, YQQ2080 ####[place] [address] MCV (RBC) [Entitic vol] 94.8 fL Normal 80.0-100.0 [facility] Comment on above: Performed By: #### L XC1557, IGI4299, SWF7032, JUP4545 ####[place] [address] Monocytes (Bld) [#/Vol] 0.6 10*3/uL Normal 0.0-1.4 [facility] Comment on above: Performed By: #### L RV4297, DPS5391, KEM3391, DFV0377 ####[place] [address] Monocytes/100 WBC (Bld) 12.1 % Normal 2.1-13.3 [facility] Comment on above: Performed By: #### L BT6845, BJU8953, NWI0147, PKD9642 ####[place] [address] Neutrophils, Abs. 2.9 10*3/uL Normal 1.5-8.5 [facility] Comment on above: Performed By: #### L EW4475, IGQ6692, IYI1526, EDS0088 ####[place] [address] Neutrophils/100 WBC (Bld) 62.8 % Normal 35.0-66.0 [facility] Comment on above: Performed By: #### L MZ3025, FRM0239, LOQ8954, HGA0308 ####[place] [address] Platelet Cnt 46 10*3/uL Critically low 150-450 [facility] Comment on above: Performed By: #### L BS9035, LSY5886, MNI0057, LTB0313 ####[place] [address] Platelet mean volume (Bld) [Entitic vol] 10.0 fL Normal 6.5-10.0 [facility] Comment on above: Performed By: #### L GC8624, WSU3535, LSY6526, NGC5885 ####[place] [address] RBC (Bld) [#/Vol] 3.27 10*6/uL Low 4.00-5.20 [facility] Comment on above: Performed By: #### L MI1438, SMK5485, FXI7514, PVS5069 ####[place] [address] WBC (Bld) [#/Vol] 4.6 10*3/uL Normal 4.5-11.0 [facility] Comment on above: Performed By: #### L CW8132, NIS9175, CZC3369, UOL1456 ####[place] [address] COMPREHENSIVE METABOLIC PANE Merritt 09-04-2024 Albumin [Mass/Vol] 2.4 g/dL Low 3.2-5.0 [facility] Comment on above: Order Comment: Rodriguez d to and read back by willard Ohplt, at 01:33 on 09/04/2024, KBM Performed By: #### L HX4106, SFS7858, IZA6316, IGL9984 ####[place] [address] Albumin/Globulin [Mass ratio] 0.8 {ratio} Normal [facility] Comment on above: Order Comment: Rodriguez d to and read back by willard Ohplt, at 01:33 on 09/04/2024, KBM Performed By: #### L RP7351, IMM7218, AZS7245, JPM8835 ####[place] [address] ALP [Catalytic activity/Vol] 104 U/L Normal 42-121 [facility] Comment on above: Order Comment: Rodriguez d to and read back by willard s :plt, at 01:33 on 09/04/2024, KBM Performed By: #### L JN6122, KXW2270, IHF7993, PXB3089 ####[place] [address] ALT [Catalytic activity/Vol] 86 U/L High 10-60 [facility] Comment on above: Order Comment: Rodriguez d to and read back by willard s :plt, at 01:33 on 09/04/2024, KBM Performed By: #### L EI9490, WFQ4979, LPO8502, TUG0812 ####[place] [address] Anion gap [Moles/Vol] 5 mmol/L Normal [facility] Comment on above: Order Comment: Rodriguez d to and read back by willard s :plt, at 01:33 on 09/04/2024, KBM Performed By: #### L YT8840, TIL3249, CEJ0305, UAN4049 ####[place] [address] AST [Catalytic activity/Vol] 140 U/L High 10-42 [facility] Comment on above: Order Comment: Rodriguze d to and read back by willard s :plt, at 01:33 on 09/04/2024, KBM Performed By: #### L HL1962, SHU1837, UQZ2183, EKG4584 ####[place] [address] B/C 10 Normal 10-20 [facility] Comment on above: Order Comment: Rodriguez d to and read back by willard s :plt, at 01:33 on 09/04/2024, KBM Performed By: #### L GS4947, MJM7438, UGP9848, ZMY5993 ####[place] [address] Bilirubin.direct [Mass/Vol] 1.4 mg/dL High 0.2-1.0 [facility] Comment on above: Order Comment: Rodriguez d to and read back by willard s :plt, at 01:33 on 09/04/2024, KBM Performed By: #### L LU7159, NLQ4729, OQQ6084, TGF4708 ####[place] [address] Calcium [Mass/Vol] 8.0 mg/dL Low 8.5-10.5 [facility] Comment on above: Order Comment: Rodriguez d to and read back by willard Ohplt, at 01:33 on 09/04/2024, KBM Performed By: #### L JB5514, NTV1060, RSV8318, FNO0214 ####[place] [address] Chloride [Moles/Vol] 105 mmol/L Normal 101-111 [facility] Comment on above: Order Comment: Rodriguez d to and read back by willard Ohplt, at 01:33 on 09/04/2024, KBM Performed By: #### L ZK1983, RFL5904, UYF0822, JLU5792 ####[place] [address] CO2 [Moles/Vol] 24 mmol/L Normal 21-31 [facility] Comment on above: Order Comment: Rodriguez d to and read back by willard Ohplt, at 01:33 on 09/04/2024, KBM Performed By: #### L UV9973, RFM6750, NBQ6599, INJ2445 ####[place] [address] Creatinine [Mass/Vol] 0.8 mg/dL Normal 0.4-1.0 [facility] Comment on above: Order Comment: Rodriguez d to and read back by willard Ohplt, at 01:33 on 09/04/2024, KBM Performed By: #### L BQ5872, UZD8536, JNW1006, RHZ9143 ####BABSC [address] [address] GFR/1.73 sq M.predicted MDRD (S/P/Bld) [Vol rate/Area] 76 mL/min/{1.73_m2} Normal [facility] Comment on above: Order Comment: Rodriguez d to and read back by willard Ohplt, at 01:33 on 09/04/2024, KBM Result Comment: *The estimated Glomerular Filtration Rate(EGFR) may not be accurate for children under the age of 18 yrs. To estimate the GFR for -Americans multiply the result provided by 1.21.Stage 1 90 mL/min or greaterStage 2 60-89 mL/minStage 3 30-59 mL/minStage 4 15-29 mL/minStage 5 14 mL/min or less Performed By: #### L WK3078, LTU4211, BPW7753, PNW9556 ####[place]ABAT[place] [address] [address] Glucose [Mass/Vol] 146 mg/dL High 70-110 [facility] Comment on above: Order Comment: Rodriguez d to and read back by willard Ohplt, at 01:33 on 09/04/2024, KBM Performed By: #### L ID1808, LGO9536, POA5786, LMN4360 ####[place] [address] [place] [address] Osmolality [Osmolality] 269 mosm/kg Normal 266-309 [facility] Comment on above: Order Comment: Rodriguez d to and read back by willard lai, at 01:33 on 09/04/2024, KBM Performed By: #### L ZD5322, CMN4182, ODN2291, VHW9769 ####BABAT[place] [address] [address] Potassium [Moles/Vol] 3.8 mmol/L Normal 3.6-5.0 [facility] Comment on above: Order Comment: Rodriguez d to and read back by willard Ohplt, at 01:33 on 09/04/2024, KBM Performed By: #### L JD3053, QMT3912, FXE2292, ITQ4997 ####[place] [address] [place] [address] Protein [Mass/Vol] 5.3 g/dL Low 6.1-7.8 [facility] Comment on above: Order Comment: Rodriguez d to and read back by willard vuong :plt, at 01:33 on 09/04/2024, KBM Performed By: #### L AY1105, RYJ0960, YTX8227, SRL9351 ####[facility] [place] [address] [place] [address] Sodium [Moles/Vol] 134 mmol/L Low 135-145 [facility] Comment on above: Order Comment: Rodriguez d to and read back by willard vuong :plt, at 01:33 on 09/04/2024, KBM Performed By: #### L JO7713, SNK8173, STF4203, NQZ0190 ####[place] [address] Urea nitrogen [Mass/Vol] 8 mg/dL Normal 2-32 [facility] Comment on above: Order Comment: Rodriguez d to and read back by willard Ohplt, at 01:33 on 09/04/2024, KBM Performed By: #### L SR1425, OEF3435, IUV5149, XPN4589 ####[place] [address] CT ABDOMEN and PELVIS-NO CON TRASTon 09-04-2024 CT ABDOMEN and PELVIS-NO CONTRAST Normal [facility] FLUID CELL COUNTon 4 Character (U) Hazy Normal [facility] Comment on above: Order Comment: Ascit es Performed By: #### L RC6030, BXR3264, ZEV7225, XGW1626, MTR6201, WQZ6961 ####[place] [address] Color (U) Yellow Normal [facility] Comment on above: Order Comment: Ascit es Performed By: #### L SF4955, JGX2070, KMK8958, IMX4831, RMD4558, PUK2509 ####[place] [address] FLD COMMENT see below Normal [facility] Comment on above: Order Comment: Ascit es Result Comment: Refe rence ranges & other method performance specifications have not beenestablished for this body fluid type. The test result must be integratedinto the clinical context for interpretation. Performed By: #### L FP4487, XMX9623, XEG7256, BEW7031, ELN2631, UMW7533 ####[place] [address] RBC 229 uL [facility] Comment on above: Order Comment: Ascit es Performed By: #### L WL5267, CZG5122, QLZ0819, LDQ5174, PYZ2245, CGU3200 ####[place] [address] SOURCE Ascites Normal [facility] Comment on above: Order Comment: Ascit es Performed By: #### L UK6034, FGV7348, BYO9980, PWX6900, LCU7627, LQL2752 ####[place] [address] TOTAL NUC. CELLS 134 uL [facility] Comment on above: Order Comment: Ascit es Result Comment: RESU LTS OF COUNT MAY BE INACCURATE IF SPECIMEN IS PARTIALLYCLOTTED OR EXHIBIT CELL CLUMPING. Performed By: #### L YN4197, FPQ3359, XAD8949, CCI4455, YPV9797, FXE2617 ####[place] [address] TUBE NUMBER Syringe [facility] Comment on above: Order Comment: Ascit es Performed By: #### L VP0692, FMX6838, KTW4887, OYH3704, SJS3184, MUJ5066 ####[place] [address] VOLUME 61.0 [facility] Comment on above: Order Comment: Ascit es Performed By: #### L VJ1461, JCG6543, BSD6492, TVE3440, FTN6908, MUB8620 ####[place] [address] FLUID CULTUREon 09-04-2024 FLUID CULTURE Bacteria identified in Body fluid by Culture FLUID CULTURE: No Growth - Preliminary Microscopic observation [Identifier] in Specimen by Gram stain GRAM STAIN SMEAR: No WBC'S. No organisms seen. [facility] Comment on above: Performed By: #### L BG1969 ####[facility] [address] [place] [address] GLUCOSE, FLUIDon 09-04-2024 GLUCOSE, FLUID 134 mg/dL Normal [facility] Comment on above: Order Comment: Ascit es Result Comment: Refe rence ranges & other method performance specifications have not beenestablished for this body fluid type. The test result must be integratedinto the clinical context for interpretation. Performed By: #### L LS9811, ECU6388, PFP3568, JCN8514, BWB5041, YTZ9485 ####[facility] [address] [place] [address] LDH, FLUIDon 09-04-2024 LDH FLUID 37 [iU]/L Low 60-160 [facility] Comment on above: Order Comment: Ascit es Performed By: #### L OY2846, ROM9875, CJN3065, OOS0903, UQB3167, UAU5054 ####[place] [address] [place] [address] MAGNESIUMon 09-04-2024 Magnesium [Mass/Vol] 1.7 mg/dL Normal 1.7-2.8 [facility] Comment on above: Performed By: #### L WX9716 ####[place] [address] Magnesium [Mass/Vol] 1.5 mg/dL Low 1.7-2.8 [facility] Comment on above: Order Comment: Rodriguez d to and read back by willard lai, at 01:33 on 09/04/2024, KBM Performed By: #### L HZ2689, TNH8363, ADZ9164, WLU2361 ####[facility] [address] [place] [address] NON FISH PROCESSOR CASESon 09-04-2024 NON FISH PROCESSOR CASES Normal [facility] Comment on above: Performed By: #### L LM4914 ####[place] [address] PH, FLUIDon 09-04-2024 PH, FLUID 7.5 Normal [facility] Comment on above: Order Comment: Ascit es Performed By: #### L ZO9565, QIJ1135, ZAI1297, JTS1990, JCG9923, LJO9120 ####[place]AT[place] [address] [address] PT INRon 09-04-2024 INR Coag (PPP) [Relative time] 1.6 {INR} High 0.9-1.1 [facility] Comment on above: Result Comment: CORRIE Luciano OF THERAPY INDICATIONS TARGET INR RANGESTANDARD DOSE TREATMENT OF VENOUS THROMBOSIS 2.0-3.0 TREATMENT OF PULMONARY EMBOLUS PROPHYLAXIS AGAINST VENOUS THROMBOSIS BY SYSTEMIC EMBOLIZATION .HIGH DOSE HIGH RISK PATIENTS WITH 2.5-3.5 MECHANICAL HEART VALVES Performed By: #### L [id number] ####[place] [address] PT Coag (PPP) [Time] 18.6 s High 10.1-13.7 [facility] Comment on above: Performed By: #### L [id number] ####[place] [address] Protein, Fluidon 09-04-2024 Protein, Fluid < 3.0 Normal [facility] Comment on above: Order Comment: Ascit es Performed By: #### L [id number], [id number], YFM1158, OUB1803, [id number], [id number] ####[place] [address] SOURCE ascites Normal [facility] Comment on above: Order Comment: Ascit es Performed By: #### L [id number], AZM3672, DEG9961, [id number], XAH5759, [id number] ####[place] [address] VASCULAR PROCEDUREon 024 VASCULAR PROCEDURE Normal [facility] AMMONIAon 09-03-2024 Ammonia (P) [Moles/Vol] 122 umol/L Critically high 11-50 [facility] Comment on above: Order Comment: Rodriguez d to and read back by AICHA IRVING/ WILLARD Vuong at 02:13 on 09/03/2024, TB3 Performed By: #### L [id number], [id number], HPF7321, [id number] ####[address] [address] CBC w/ Differentialon 2023 Basophil Abs. 0.0 10*3/uL Normal 0.0-0.1 [facility] Comment on above: Performed By: #### L [id number], BCG6576, AMO4698, [id number] ####[address] [address] Basophils/100 WBC (Bld) 0.8 % Normal 0.0-1.0 [facility] Comment on above: Performed By: #### L [id number], XTS7821, PXT0552, [id number] ####[address] [address] Differential type Auto Normal [facility] Comment on above: Performed By: #### L [id number], UUP9693, KXI1491, QBC6779 ####[place] [address] Eosinophils (Bld) [#/Vol] 0.2 10*3/uL Normal 0.0-0.5 [facility] Comment on above: Performed By: #### L LC1829, ZYP6408, UDB9136, OEO5185 ####[address] [address] Eosinophils/100 WBC (Bld) 4.1 % Normal 0.3-5.0 [facility] Comment on above: Performed By: #### L BL4838, XSG5702, TZJ7464, AEZ7887 ####[place] [address] Erythrocyte distribution width (RBC) [Ratio] 16.5 % Normal 10.7-18.7 [facility] Comment on above: Performed By: #### L BP4927, TEK3095, QED9892, PXT1150 ####[place] [address] Hematocrit (Bld) [Volume fraction] 30.9 % Low 33.0-51.0 [facility] Comment on above: Performed By: #### L QV0664, MOK8908, VXS4788, BYF5533 ####[place] [address] Hemoglobin (Bld) [Mass/Vol] 10.5 g/dL Low 12.0-16.0 [facility] Comment on above: Performed By: #### L PJ4245, OPY4902, ZTM1630, UOY8626 ####[place] [address] Lymphocytes (Bld) [#/Vol] 1.1 10*3/uL Normal 1.1-5.0 [facility] Comment on above: Performed By: #### L BX0290, DTL5837, CZX1397, RAE9318 ####[place] [address] Lymphocytes/100 WBC (Bld) 24.9 % Normal 24.0-44.0 [facility] Comment on above: Performed By: #### L KH3435, CGR8127, XNV8546, PLA1472 ####[place] [address] MCH (RBC) [Entitic mass] 32.2 pg Normal 26.0-34.0 [facility] Comment on above: Performed By: #### L IL6194, CTE0443, SEZ8481, ZGC6402 ####[place] [address] MCHC (RBC) [Mass/Vol] 33.8 g/dL Normal 32.0-36.0 [facility] Comment on above: Performed By: #### L PJ7407, SRU0504, LFW7700, FQV0399 ####[place] [address] MCV (RBC) [Entitic vol] 95.3 fL Normal 80.0-100.0 [facility] Comment on above: Performed By: #### L UR9924, ORW1555, XEP3596, GPA4255 ####[address] [place] [address] Monocytes (Bld) [#/Vol] 0.5 10*3/uL Normal 0.0-1.4 [facility] Comment on above: Performed By: #### L PH0572, SNX9535, BIN7063, ECW1001 ####[place] [address] Monocytes/100 WBC (Bld) 10.7 % Normal 2.1-13.3 [facility] Comment on above: Performed By: #### L FC9926, FBS5323, RPS6536, NUZ2633 ####[place] [address] Neutrophils, Abs. 2.7 10*3/uL Normal 1.5-8.5 [facility] Comment on above: Performed By: #### L GF3413, BDP1258, GFD6808, HLO6133 ####[place] [address] Neutrophils/100 WBC (Bld) 59.5 % Normal 35.0-66.0 [facility] Comment on above: Performed By: #### L RY0918, TZK4408, ZCH4905, IJC2041 ####[place] [address] Platelet Cnt 53 10*3/uL Low 150-450 [facility] Comment on above: Performed By: #### L UD8214, SIB2949, CVB8011, PKW2573 ####[place] [address] Platelet mean volume (Bld) [Entitic vol] 10.4 fL High 6.5-10.0 [facility] Comment on above: Performed By: #### L FA7062, ZBY8310, OPP7669, WRR8377 ####[place] [address] RBC (Bld) [#/Vol] 3.24 10*6/uL Low 4.00-5.20 [facility] Comment on above: Performed By: #### L QJ2896, ZZS3718, DKZ9956, NEA0566 ####BABATUNDE [facility] [place] [address] WBC (Bld) [#/Vol] 4.5 10*3/uL Normal 4.5-11.0 [facility] Comment on above: Performed By: #### L VV1962, ICO1205, XJE7517, BLV8214 ####[place] [address] COMPREHENSIVE METABOLIC PANE [place] 09-03-2024 Albumin [Mass/Vol] 2.3 g/dL Low 3.2-5.0 [facility] Comment on above: Performed By: #### L YQ0054, NRD4248, PDF7188, FUN6237 ####[place] [address] Albumin/Globulin [Mass ratio] 0.8 {ratio} Normal [facility] Comment on above: Performed By: #### L IW3563, ORQ2865, HUK5473, GXJ3864 ####[place] [address] ALP [Catalytic activity/Vol] 110 U/L Normal 42-121 [facility] Comment on above: Performed By: #### L NL6632, SPL8799, NYG2701, FVN2453 ####BABATUNDE [address] [address] ALT [Catalytic activity/Vol] 78 U/L High 10-60 [facility] Comment on above: Performed By: #### L YP0514, SEC5292, LYL7311, GOJ2010 ####[place] [address] Anion gap [Moles/Vol] 3 mmol/L Normal [facility] Comment on above: Performed By: #### L BE6739, VFJ8178, AHN2193, NIY3281 ####[place] [address] [place] [address] AST [Catalytic activity/Vol] 126 U/L High 10-42 [facility] Comment on above: Performed By: #### L HQ9784, KNZ4183, QRB2126, NIF4038 ####BABATUNDE [facility] [place] [address] B/C 9 Low 10-20 [facility] Comment on above: Performed By: #### L TA5331, UPS0337, QQN1639, IBH2197 ####[place] [address] Bilirubin.direct [Mass/Vol] 1.5 mg/dL High 0.2-1.0 [facility] Comment on above: Performed By: #### L EE8807, UAA2441, FQO6961, NWX0316 ####[place] [address] Calcium [Mass/Vol] 8.3 mg/dL Low 8.5-10.5 [facility] Comment on above: Performed By: #### L IK4269, NJB5081, CKN5740, OQB2503 ####[place] [address] Chloride [Moles/Vol] 111 mmol/L Normal 101-111 [facility] Comment on above: Performed By: #### L KK7217, XIE6063, YEY9633, YLG2483 ####[place] [address] CO2 [Moles/Vol] 22 mmol/L Normal 21-31 [facility] Comment on above: Performed By: #### L BY4345, FAK6354, KGI5395, KXU1338 ####[place] [address] Creatinine [Mass/Vol] 1.0 mg/dL Normal 0.4-1.0 [facility] Comment on above: Performed By: #### L OE0403, VQD1260, IZY1487, YEO8793 ####[place] [address] GFR/1.73 sq M.predicted MDRD (S/P/Bld) [Vol rate/Area] 58 mL/min/{1.73_m2} Normal [facility] Comment on above: Result Comment: *The estimated Glomerular Filtration Rate(EGFR) may not be accurate for children under the age of 18 yrs. To estimate the GFR for -Americans multiply the result provided by 1.21.Stage 1 90 mL/min or greaterStage 2 60-89 mL/minStage 3 30-59 mL/minStage 4 15-29 mL/minStage 5 14 mL/min or less Performed By: #### L SL6129, OFI3448, GVJ6090, UQV0080 ####BABATUNDE [address] [address] Glucose [Mass/Vol] 138 mg/dL High 70-110 [facility] Comment on above: Performed By: #### L AK1849, VFO4811, AXV1992, SOJ3265 ####BABATUNDE [address] [address] Osmolality [Osmolality] 273 mosm/kg Normal 266-309 [facility] Comment on above: Performed By: #### L KJ4657, QDM1755, QCU0912, BIL1398 ####BABATUNDE [address] [address] Potassium [Moles/Vol] 3.9 mmol/L Normal 3.6-5.0 [facility] Comment on above: Performed By: #### L DN3254, LOE0326, NKG2554, FSY3700 ####BABATUNDE [address] [address] Protein [Mass/Vol] 5.2 g/dL Low 6.1-7.8 [facility] Comment on above: Performed By: #### L VM0731, WUF6088, WJC2757, DLD6023 ####BABATUNDE [address] [address] Sodium [Moles/Vol] 136 mmol/L Normal 135-145 [facility] Comment on above: Performed By: #### L RI4835, LRF0888, ZRS3126, CLR7506 ####BABATUNDE [address] [address] Urea nitrogen [Mass/Vol] 9 mg/dL Normal 2-32 [facility] Comment on above: Performed By: #### L WD2560, ZZE5841, ZXX4694, NVR9368 ####[place] [address] GLUCOSE, GLUCOMETERon 2023 Glucose [Mass/Vol] 119 mg/dL High 70-110 [facility] Comment on above: Performed By: #### L NP8312 ####[place] [address] MAGNESIUMon 09-03-2024 Magnesium [Mass/Vol] 1.9 mg/dL Normal 1.7-2.8 [facility] Comment on above: Performed By: #### L CS7295 ####[place] [address] Magnesium [Mass/Vol] 1.5 mg/dL Low 1.7-2.8 [facility] Comment on above: Performed By: #### L PS2823, WDB7897, BLH3313, RFJ2799 ####[place] [address] CBC w/ Differentialon 2023 Basophil Abs. 0.0 10*3/uL Normal 0.0-0.1 [facility] Comment on above: Performed By: #### L AH0036, FOI6821, IWN6678 ####[place] [address] Basophils/100 WBC (Bld) 0.8 % Normal 0.0-1.0 [facility] Comment on above: Performed By: #### L LA5607, XKH0275, SWV3396 ####[place] [address] Differential type Auto Normal [facility] Comment on above: Performed By: #### L QW5947, JWT6001, LAT2775 ####[place] [address] Eosinophils (Bld) [#/Vol] 0.2 10*3/uL Normal 0.0-0.5 [facility] Comment on above: Performed By: #### L PU7328, YFV6132, DKS5718 ####[place] [address] Eosinophils/100 WBC (Bld) 3.7 % Normal 0.3-5.0 [facility] Comment on above: Performed By: #### L SM3040, WAH8962, QXE6318 ####[place] [address] Erythrocyte distribution width (RBC) [Ratio] 16.4 % Normal 10.7-18.7 [facility] Comment on above: Performed By: #### L II4815, HEF3607, ASG2246 ####[place] [address] Hematocrit (Bld) [Volume fraction] 32.9 % Low 33.0-51.0 [facility] Comment on above: Performed By: #### L RG9163, PDG7225, BUD3318 ####[place] [address] Hemoglobin (Bld) [Mass/Vol] 11.2 g/dL Low 12.0-16.0 [facility] Comment on above: Performed By: #### L TJ2497, TFQ6870, GSU8651 ####[place] [address] Lymphocytes (Bld) [#/Vol] 1.3 10*3/uL Normal 1.1-5.0 [facility] Comment on above: Performed By: #### L ZI0283, ATH6126, IPH6014 ####[place] [address] Lymphocytes/100 WBC (Bld) 22.4 % Low 24.0-44.0 [facility] Comment on above: Performed By: #### L VV8290, XGF0247, CBG7576 ####[place] [address] MCH (RBC) [Entitic mass] 32.2 pg Normal 26.0-34.0 [facility] Comment on above: Performed By: #### L VJ7389, TLK3794, HGM9133 ####[place] [address] MCHC (RBC) [Mass/Vol] 34.2 g/dL Normal 32.0-36.0 [facility] Comment on above: Performed By: #### L UR6892, XCV4119, QXN4555 ####[place] [address] MCV (RBC) [Entitic vol] 94.3 fL Normal 80.0-100.0 [facility] Comment on above: Performed By: #### L MB8911, IPP1413, FAA4064 ####[place] [address] Monocytes (Bld) [#/Vol] 0.6 10*3/uL Normal 0.0-1.4 [facility] Comment on above: Performed By: #### L SB7975, HIK1603, QYN4278 ####[place] [address] Monocytes/100 WBC (Bld) 9.7 % Normal 2.1-13.3 [facility] Comment on above: Performed By: #### L AP7462, BYD7737, RIN6983 ####[place] [address] Neutrophils, Abs. 3.8 10*3/uL Normal 1.5-8.5 [facility] Comment on above: Performed By: #### L CV5084, ZLG3942, TUY2186 ####[place] [address] Neutrophils/100 WBC (Bld) 63.4 % Normal 35.0-66.0 [facility] Comment on above: Performed By: #### L PW6867, DFC2939, UIO8053 ####[place] [address] Platelet Cnt 59 10*3/uL Low 150-450 [facility] Comment on above: Performed By: #### L ZT3966, ULK1349, HFZ2795 ####[place] [address] Platelet mean volume (Bld) [Entitic vol] 10.0 fL Normal 6.5-10.0 [facility] Comment on above: Performed By: #### L TD7270, MJV9007, DIF9887 ####[place] [address] RBC (Bld) [#/Vol] 3.49 10*6/uL Low 4.00-5.20 [facility] Comment on above: Performed By: #### L RS0519, RLX0720, KMV8394 ####[place] [address] WBC (Bld) [#/Vol] 6.0 10*3/uL Normal 4.5-11.0 [facility] Comment on above: Performed By: #### L IU3935, HZP2828, RHJ7813 ####[place] [address] COMPREHENSIVE METABOLIC PANE [place] 09-02-2024 Albumin [Mass/Vol] 2.6 g/dL Low 3.2-5.0 [facility] Comment on above: Performed By: #### L UT1257, NLQ2711, YGE3953 ####[place] [address] Albumin/Globulin [Mass ratio] 0.9 {ratio} Normal [facility] Comment on above: Performed By: #### L JK0584, NRB5787, ODJ0832 ####[place] [address] ALP [Catalytic activity/Vol] 113 U/L Normal 42-121 [facility] Comment on above: Performed By: #### L ET8207, TLY0731, OZM6076 ####[place] [address] ALT [Catalytic activity/Vol] 87 U/L High 10-60 [facility] Comment on above: Performed By: #### L DO9061, CKM7599, TQD0849 ####[place] [address] Anion gap [Moles/Vol] 5 mmol/L Normal [facility] Comment on above: Performed By: #### L TY7363, JQS3344, PYO5387 ####[place] [address] AST [Catalytic activity/Vol] 130 U/L High 10-42 [facility] Comment on above: Performed By: #### L CX7851, KCQ5041, KBD2929 ####[place] [address] B/C 10 Normal 10-20 [facility] Comment on above: Performed By: #### L WM8612, RFN5304, JOM6431 ####[place] [address] Bilirubin.direct [Mass/Vol] 1.4 mg/dL High 0.2-1.0 [facility] Comment on above: Performed By: #### L XP0796, RSU1151, IOK6244 ####[place] [address] Calcium [Mass/Vol] 8.1 mg/dL Low 8.5-10.5 [facility] Comment on above: Performed By: #### L YK9040, GZM3118, VWV1520 ####[place] [address] Chloride [Moles/Vol] 111 mmol/L Normal 101-111 [facility] Comment on above: Performed By: #### L XO4695, IJM0076, SZD7054 ####[place] [address] CO2 [Moles/Vol] 21 mmol/L Normal 21-31 [facility] Comment on above: Performed By: #### L OK4288, IEA4505, CPD4654 ####[place] [address] Creatinine [Mass/Vol] 0.9 mg/dL Normal 0.4-1.0 [facility] Comment on above: Performed By: #### L LW8456, VJK8913, DMR4720 ####BABATUNDE [address] [address] GFR/1.73 sq M.predicted MDRD (S/P/Bld) [Vol rate/Area] 66 mL/min/{1.73_m2} Normal [facility] Comment on above: Result Comment: *The estimated Glomerular Filtration Rate(EGFR) may not be accurate for children under the age of 18 yrs. To estimate the GFR for -Americans multiply the result provided by 1.21.Stage 1 90 mL/min or greaterStage 2 60-89 mL/minStage 3 30-59 mL/minStage 4 15-29 mL/minStage 5 14 mL/min or less Performed By: #### L HQ2395, SBO7756, SSA2567 ####BABATUNDE [address] [address] Glucose [Mass/Vol] 89 mg/dL Normal 70-110 [facility] Comment on above: Performed By: #### [place] ZR6011, LRC9436, ODG4103 ####BABATUNDE [address] [address] Osmolality [Osmolality] 272 mosm/kg Normal 266-309 [facility] Comment on above: Performed By: #### L OH0867, RAP3880, GXI6726 ####BABATUNDE [address] [address] Potassium [Moles/Vol] 3.8 mmol/L Normal 3.6-5.0 [facility] Comment on above: Performed By: #### L EV2050, BQR1927, OFC5736 ####BABATUNDE [address] [address] Protein [Mass/Vol] 5.6 g/dL Low 6.1-7.8 [facility] Comment on above: Performed By: #### L GY5883, NUI9608, HWT8144 ####BABATUNDE [address] [address] Sodium [Moles/Vol] 137 mmol/L Normal 135-145 [facility] Comment on above: Performed By: #### L MB7424, SMO6760, OEO1927 ####[facility] [address] [place] [address] Urea nitrogen [Mass/Vol] 9 mg/dL Normal 2-32 [facility] Comment on above: Performed By: #### L ZN0028, KSI3283, FXI1902 ####[facility] [address] [place] [address] FREE T4on 09-02-2024 Free T4 [Mass/Vol] 0.69 ng/dL Low 0.70-1.70 [facility] Comment on above: Result Comment: Upda mary 05/18/19, Free T4 assays can have false high results when theconcentration of biotin in the patient sample is 10 ng/mL or greater. Performed By: #### L TO3053, HMG7379, CFG4452, VMU5760 ####[place] [address] [place] [address] HEMOGLOBIN A1Con 09-02-2024 HbA1c (Bld) [Mass fraction] 4.0 % Normal 3.0-6.0 [facility] Comment on above: Performed By: #### L PL4903, QRX6183, URB9623, JNV9374 ####[facility] [address] [place] [address] LIPID PANELon 09-02-2024 Cholesterol [Mass/Vol] 89 mg/dL Normal 10-200 [facility] Comment on above: Performed By: #### L FS5520, EZC0481, PXM8582, EPD9284 ####[facility] [address] [place] [address] Cholesterol in HDL [Mass/Vol] 38.0 mg/dL Normal 29.0-89.0 [facility] Comment on above: Performed By: #### L BW2546, TOS2019, MLQ9748, FFQ8911 ####[place] [address] [place] [address] Cholesterol in LDL [Mass/Vol] 42.0 mg/dL Normal [facility] Comment on above: Result Comment: CAP STANDARDIZED LDL-CHOLESTEROL VALUES <130-DESIRABLE 130-159 BORDERLINE/HIGH RISK >160-HIGH RISK Performed By: #### L WY7964, CEM0076, ADM9255, TTF7741 ####[facility] [address] [place] [address] Cholesterol in VLDL [Mass/Vol] 9.0 mg/dL Normal [facility] Comment on above: Performed By: #### L YX8456, KYH5529, DYZ5252, BQZ3200 ####[facility] [address] [place] [address] RISK 1, FEMALE 2.34 Normal [facility] Comment on above: Result Comment: TOTA L CHOL/HDL 1/2 AVERAGE 3.27 AVERAGE 4.44 2 X AVERAGE 7.05 3 X AVERAGE 11.04 Performed By: #### L IU5313, NQJ0523, IDQ5319, HNZ1518 ####[facility] [address] [place] [address] RISK 1, MALE 2.34 Normal [facility] Comment on above: Result Comment: TOTA L CHOL/HDL 1/2 AVERAGE 3.43 AVERAGE 4.97 2 X AVERAGE 9.55 3 X AVERAGE 23.39 Performed By: #### L UV3069, ZYF1794, JWM5826, NSA1829 ####[facility] [address] [place] [address] RISK 2, FEMALE 1.11 Normal [facility] Comment on above: Result Comment: LDL/ HDL 1/2 AVERAGE 1.47 AVERAGE 3.22 2 X AVERAGE 5.03 3 X AVERAGE 6.14 Performed By: #### L IF3754, WOT6151, DZJ8980, PXN9757 ####[facility] [address] [place] [address] RISK 2, MALE 1.11 [facility] Comment on above: Result Comment: LDL/ HDL 1/2 AVERAGE 1.00 AVERAGE 3.55 2 X AVERAGE 6.25 3 X AVERAGE 7.99 Performed By: #### L RL3696, EEZ6700, FAK5755, XBE5120 ####[facility] [address] [place] [address] Triglyceride [Mass/Vol] 45 mg/dL Low 46-236 [facility] Comment on above: Performed By: #### L XA2795, JTJ5573, LSR0860, DCR0046 ####[facility] [address] [place] [address] MAGNESIUMon 09-02-2024 Magnesium [Mass/Vol] 1.8 mg/dL Normal 1.7-2.8 [facility] Comment on above: Performed By: #### L VO3227, CHY5732, VKH8937 ####[place] [address] TSHon 09-02-2024 TSH Qn 2.02 m[IU]/L Normal 0.30-5.60 [facility] Comment on above: Performed By: #### L PE7934, EKW7830, BOB2850, BMN7119 ####[place] [address] XR LUMBAR SPINE AP AND LATER Ale 09-02-2024 XR LUMBAR SPINE AP AND LATERAL Normal [facility] AMMONIAon 09-01-2024 Ammonia (P) [Moles/Vol] 56 umol/L High 11-50 [facility] Comment on above: Performed By: #### L GA2070, ZCQ4354, QVR6555, ZLB6454, OSK5558, KLH0038, UIY2476, SSQ6868 ####[place] [id number] [place] [address] BNPon 09-01-2024 Natriuretic peptide B (Bld) [Mass/Vol] 67.0 pg/mL Normal 1.0-100.0 [facility] Comment on above: Result Comment: The BNP test should not be used as absolute evidence of CHF.Elevated BNP blood concentrations may be found in heartattack patients and renal dialysis patients. Performed By: #### L LA4516, IXP4569, TEG6944, YHN6805, NUM2073, UKT0075, ACL3075, GGT5871 ####[facility] [address] [place] [address] CBC w/ Differentialon 2023 Basophil Abs. 0.0 10*3/uL Normal 0.0-0.1 [facility] Comment on above: Performed By: #### L UF9860, PKP9933, ZFI3311, NHI3076, NQI3840, YUA6377, SPA9437, IUM1493 ####[place] [address] Basophils/100 WBC (Bld) 0.4 % Normal 0.0-1.0 [facility] Comment on above: Performed By: #### L GK3339, MTC2612, JZA0512, NPZ6126, LVT3246, TXX6128, JPP8973, SLY7874 ####[place] [address] Differential type Auto Normal [facility] Comment on above: Performed By: #### L VM8530, ZMA2156, HMC0552, OAU9356, NOE8410, UUE5091, ZOB0581, BWO8657 ####[place] [address] Eosinophils (Bld) [#/Vol] 0.2 10*3/uL Normal 0.0-0.5 [facility] Comment on above: Performed By: #### L MK3828, NDK5769, QJR6905, QHH4352, AGX4716, BHI9596, HBY2005, FRX2057 ####[place] [address] Eosinophils/100 WBC (Bld) 2.9 % Normal 0.3-5.0 [facility] Comment on above: Performed By: #### L EM8906, FTC2665, AFA0411, IIY7005, KHX5330, CVW7278, USC4553, CHU5719 ####[place] [address] Erythrocyte distribution width (RBC) [Ratio] 16.5 % Normal 10.7-18.7 [facility] Comment on above: Performed By: #### L RZ1411, UZL7491, TPM6665, DZP9379, OLE3064, ZKK5220, SRM8378, RCG7690 ####[facility] [address] [place] [address] Hematocrit (Bld) [Volume fraction] 36.3 % Normal 33.0-51.0 [facility] Comment on above: Performed By: #### L CQ5245, NPG3455, BXH5725, KEQ8109, HAH2121, EZQ7408, CWE8542, CFW5232 ####[address] [address] Hemoglobin (Bld) [Mass/Vol] 12.5 g/dL Normal 12.0-16.0 [facility] Comment on above: Performed By: #### L AR2477, UEY9306, CSP2248, QLC0281, XZB7433, ZYO9113, BMO8327, LAN1751 ####[place] [address] Lymphocytes (Bld) [#/Vol] 1.0 10*3/uL Low 1.1-5.0 [facility] Comment on above: Performed By: #### L GO9022, FBD9583, CGZ8753, IZY8636, OCI7418, IGN1751, YAY9659, DAS5708 ####[place] [address] Lymphocytes/100 WBC (Bld) 15.9 % Low 24.0-44.0 [facility] Comment on above: Performed By: #### L OS3411, RGX4783, GCF6077, WCR9981, VLY8124, DJG5753, WMR7665, GMA2086 ####[place] [address] MCH (RBC) [Entitic mass] 32.7 pg Normal 26.0-34.0 [facility] Comment on above: Performed By: #### L QL5442, HJR8696, BRA7152, WTL0556, IAB4069, EVP7264, DLF9098, DTR6552 ####[address] [address] MCHC (RBC) [Mass/Vol] 34.5 g/dL Normal 32.0-36.0 [facility] Comment on above: Performed By: #### L DL2102, DZJ0349, SDN0751, CJY1576, DSL2037, TOM1643, VQA0164, HKS9812 ####[place] [address] MCV (RBC) [Entitic vol] 94.9 fL Normal 80.0-100.0 [facility] Comment on above: Performed By: #### L IB0085, RNU9947, YUN6066, IVY6979, SUM7573, UHE2527, CBT8072, DOI4965 ####[place] [address] MDW 17.7 Normal 0.0-20.0 [facility] Comment on above: Performed By: #### L KD1496, FSX1627, ELB5897, HQO1594, NDJ4213, XMA6629, LGD9485, RAO8434 ####[place] [address] Monocytes (Bld) [#/Vol] 0.7 10*3/uL Normal 0.0-1.4 [facility] Comment on above: Performed By: #### L HP1785, GIF2101, CAL8514, XXO2313, BKG0239, NJN0794, SJE0642, RSS0710 ####[place] [address] Monocytes/100 WBC (Bld) 11.3 % Normal 2.1-13.3 [facility] Comment on above: Performed By: #### L BI1189, VKN7987, KXF4060, CPX9311, OGM5745, UYU5198, SDG5825, XRI2815 ####[place] [address] Neutrophils, Abs. 4.5 10*3/uL Normal 1.5-8.5 [facility] Comment on above: Performed By: #### L FK4897, UJL4511, ONA5593, UUG6970, JPL6913, KTJ4324, DYH2048, NXF9045 ####[place] [address] Neutrophils/100 WBC (Bld) 69.5 % High 35.0-66.0 [facility] Comment on above: Performed By: #### L GP1974, VEB8306, SEL9240, JHH7573, VHF9469, DQT5702, UHW1003, DLO4367 ####[place] [address] Platelet Cnt 60 10*3/uL Low 150-450 [facility] Comment on above: Performed By: #### L EC0093, SDW5460, RCO8349, RAH2512, IWS1285, ZWE5981, GKG8543, BND6986 ####[place] [address] Platelet mean volume (Bld) [Entitic vol] 9.7 fL Normal 6.5-10.0 [facility] Comment on above: Performed By: #### L HL0271, WPG4266, AAH5738, ASQ2746, GBS3391, BWH6040, FCI8665, OWV4348 ####[place] [address] RBC (Bld) [#/Vol] 3.82 10*6/uL Low 4.00-5.20 [facility] Comment on above: Performed By: #### L SU7332, PDU9640, ADN0274, ALF1617, HBE3883, PPL4211, MPZ6613, KKQ6096 ####[place] [address] WBC (Bld) [#/Vol] 6.4 10*3/uL Normal 4.5-11.0 [facility] Comment on above: Performed By: #### L IL7396, RCG2903, GCF8557, BLK9560, ZAT3106, VIY9909, QBO2763, CMW9080 ####[place] [address] COMPREHENSIVE METABOLIC PANE [place] 09-01-2024 Albumin [Mass/Vol] 2.7 g/dL Low 3.2-5.0 [facility] Comment on above: Performed By: #### L DD2660, KCD7351, KYP7254, TZK5708, CZJ9714, ZQF8113, CZH4827, MGB6405 ####[place] [address] Albumin/Globulin [Mass ratio] 0.8 {ratio} Normal [facility] Comment on above: Performed By: #### L FA4279, HTZ5253, RMF1260, SIG3392, BTZ0965, KZC7124, EYT0166, PDK4620 ####[place] [address] ALP [Catalytic activity/Vol] 125 U/L High 42-121 [facility] Comment on above: Performed By: #### L VP3750, SRL9643, OPE1640, MID0989, LQX4818, CRT7638, IND3919, UWJ7710 ####[place] [address] ALT [Catalytic activity/Vol] 93 U/L High 10-60 [facility] Comment on above: Performed By: #### L DS6854, LSH4646, CDG4530, YZI8845, YDL3688, QJN0403, IMS9298, EKW4574 ####[place] [address] Anion gap [Moles/Vol] 4 mmol/L Normal [facility] Comment on above: Performed By: #### L YA2925, VNV5137, HCA7291, HSZ7353, LZX3160, WID4163, OZA2025, TUS9390 ####[place] [address] AST [Catalytic activity/Vol] 137 U/L High 10-42 [facility] Comment on above: Performed By: #### L HK9985, NXK4470, JRE5295, CNN3299, WEZ7117, RLV4636, LMX2442, IJM0493 ####[place] [address] B/C 9 Low 10-20 [facility] Comment on above: Performed By: #### L QY2743, YZQ9341, QDP3973, MTY4665, YNP6793, OCD0343, GUM5101, QTE9576 ####[place] [address] Bilirubin.direct [Mass/Vol] 1.7 mg/dL High 0.2-1.0 [facility] Comment on above: Performed By: #### L TQ4610, UVC2231, YTO2704, MEU1152, DLC8334, DMM1195, LTM5613, ZHY4512 ####[place] [address] Calcium [Mass/Vol] 8.2 mg/dL Low 8.5-10.5 [facility] Comment on above: Performed By: #### L XT7773, BUB6001, RKA9742, KJY9524, XYU5611, FTJ4907, UVB8548, OMK1861 ####[place] [address] Chloride [Moles/Vol] 111 mmol/L Normal 101-111 [facility] Comment on above: Performed By: #### L LZ1748, LYC0663, QGO6049, QBA3119, MHE4430, FJK4888, BSG0692, WOA8527 ####[place] [address] CO2 [Moles/Vol] 22 mmol/L Normal 21-31 [facility] Comment on above: Performed By: #### L JH3175, LIB3714, UBM1272, HXB3082, ALN6523, HYQ7516, DYI5681, KPG8963 ####[place] [address] Creatinine [Mass/Vol] 1.0 mg/dL Normal 0.4-1.0 [facility] Comment on above: Performed By: #### L ZA3873, DHN8566, SAE8654, OIO8267, PAI4775, CII8724, XIR5589, WTN5435 ####[address] [address] GFR/1.73 sq M.predicted MDRD (S/P/Bld) [Vol rate/Area] 58 mL/min/{1.73_m2} Normal [facility] Comment on above: Result Comment: *The estimated Glomerular Filtration Rate(EGFR) may not be accurate for children under the age of 18 yrs. To estimate the GFR for -Americans multiply the result provided by 1.21.Stage 1 90 mL/min or greaterStage 2 60-89 mL/minStage 3 30-59 mL/minStage 4 15-29 mL/minStage 5 14 mL/min or less Performed By: #### L IY6782, MXY4230, ZMR1453, OWA9781, JWQ6347, PFF0014, RFW4051, LIB2507 ####[place] [address] Glucose [Mass/Vol] 98 mg/dL Normal 70-110 [facility] Comment on above: Performed By: #### L EF5509, TDK9279, EMH3789, VHP7642, TXU5555, BAF0477, PBZ1478, BGR5286 ####[place] [address] Osmolality [Osmolality] 272 mosm/kg Normal 266-309 [facility] Comment on above: Performed By: #### L WX5699, MNQ9188, BLF0528, AUV6214, GGU8972, GLB5360, CMP7022, UBJ5861 ####[place] [address] Potassium [Moles/Vol] 3.9 mmol/L Normal 3.6-5.0 [facility] Comment on above: Performed By: #### L EO8776, UQR0896, JWU7714, VFR1221, ZFF7306, DUX5142, NWE3698, ZST7608 ####[place] [address] Protein [Mass/Vol] 6.1 g/dL Normal 6.1-7.8 [facility] Comment on above: Performed By: #### L TA7911, TGX8113, UMM0079, UPW3538, LGK2446, AQH4112, EKA3363, AVB4766 ####[place] [address] Sodium [Moles/Vol] 137 mmol/L Normal 135-145 [facility] Comment on above: Performed By: #### L IJ2842, HOK2690, BLE4981, WBP7334, VCB9571, HAV3612, IRJ2767, RFD2588 ####[place] [address] Urea nitrogen [Mass/Vol] 9 mg/dL Normal 2-32 [facility] Comment on above: Performed By: #### L CM0419, AUB1294, LHI3028, YMC5877, ZDX7666, GZO6947, POV1092, PPS4649 ####[place] [address] LACTIC ACIDon 09-01-2024 Lactate [Moles/Vol] 1.5 mmol/L Normal 0.5-1.9 [facility] Comment on above: Performed By: #### L PQ2201, PYM0262, NAX0827, XIV6048, OXW2095, IAY4355, TFX2392, JFH8789 ####[place] [address] LIPASEon 09-01-2024 Lipase [Catalytic activity/Vol] 42 U/L Normal 11-82 [facility] Comment on above: Performed By: #### L HI0530, LCR6151, MRD3099, BMO7037, JKV3240, TVJ1034, ZNL3747, NQB1353 ####[place] [address] PROCALCITONIN, Son 4 PROCALCITONIN, S 0.10 ng/mL Normal [facility] Comment on above: Result Comment: . <0 [...] or septic shock. Performed By: #### L QW4558, VUA1405, YMZ1115, BHE1704, AZM4985, MPD3323, SQC1757, GPD1522 ####[facility] [address] [place] [address] PT AND APTTon 09-01-2024 aPTT Coag (Bld) [Time] 39.5 s High 25.5-35.9 [facility] Comment on above: Performed By: #### L KS9588, FJO3599, LYQ3153, CUT3088, WDU6074, OHH4562, YBK2994, KQT7459 ####[address] [address] INR Coag (PPP) [Relative time] 1.6 {INR} High 0.9-1.1 [facility] Comment on above: Result Comment: CORRIE Lucaino OF THERAPY INDICATIONS TARGET INR RANGESTANDARD DOSE TREATMENT OF VENOUS THROMBOSIS 2.0-3.0 TREATMENT OF PULMONARY EMBOLUS PROPHYLAXIS AGAINST VENOUS THROMBOSIS BY SYSTEMIC EMBOLIZATION .HIGH DOSE HIGH RISK PATIENTS WITH 2.5-3.5 MECHANICAL HEART VALVES Performed By: #### L FL2116, HLO8740, CDL9550, OOQ6132, TGL0606, EED1455, YHX3769, RYZ3348 ####[address] [address] PT Coag (PPP) [Time] 18.5 s High 10.1-13.7 [facility] Comment on above: Performed By: #### L IF2076, IMB7521, YPB1282, LUB5912, NCB9111, KCU1455, PWX0508, HYX2732 ####[facility] [address] [place] [address] XR PORTABLE CHESTon 09-01-20 24 XR PORTABLE CHEST Normal [facility] Vascular Procedureon 024 [facility] Radiology Study observation (narrative) [facility] VASCULAR PROCEDUREon VASCULAR PROCEDURE Normal [facility] VASCULAR PROCEDURE Normal [facility] Vascular Procedureon 024 : Technically successful ultrasound-guided therapeutic paracentesis with aspiration of 2550 cc of cloudy yellow fluid. SIGNED: Ginger Milton MD 08/16/2024 3:32 PM [facility] INTERVENTIONAL RADIOLOGY REPORT PATIENT: Carolina Hightower DATE [...] provided using 1% buffered lidocaine. A 6.5 [place] non-locking Resolve pigtail catheter was advanced into the peritoneal space. 2550 cc of cloudy yellow fluid were obtained. The catheter was removed intact. A dry sterile dressing was applied to the puncture site. The patient tolerated the procedure well and there were no immediate complications. The patient was given no IV albumin. FINDINGS: Moderate amount of free peritoneal fluid/ascites. [facility] Radiology Study observation (narrative) [facility] VASCULAR PROCEDUREon 024 VASCULAR PROCEDURE Normal [facility] VASCULAR PROCEDUREon 024 VASCULAR PROCEDURE Normal [facility] CBC w/ Differentialon 2023 Basophil Abs. 0.1 10*3/uL Normal 0.0-0.1 [facility] Comment on above: Performed By: #### L RL5520, CGX5453, PJV4213 ####[facility] [address] [place] [address] Basophils/100 WBC (Bld) 1.0 % Normal 0.0-1.0 [facility] Comment on above: Performed By: #### L BN3197, NSX1267, MNR7222 ####[facility] [address] [place] [address] Differential type Auto Normal [facility] Comment on above: Performed By: #### L KD8239, SWL2876, GCK5939 ####[place] [address] Eosinophils (Bld) [#/Vol] 0.2 10*3/uL Normal 0.0-0.5 [facility] Comment on above: Performed By: #### L RW9945, YOM7254, ENK1136 ####[place] [address] Eosinophils/100 WBC (Bld) 4.0 % Normal 0.3-5.0 [facility] Comment on above: Performed By: #### L BS5112, HQR2652, TPC6481 ####[place] [address] Erythrocyte distribution width (RBC) [Ratio] 17.7 % Normal 10.7-18.7 [facility] Comment on above: Performed By: #### L PE1078, NIN4960, YMW3562 ####[place] [address] Hematocrit (Bld) [Volume fraction] 32.6 % Low 33.0-51.0 [facility] Comment on above: Performed By: #### L VX2350, SLM7585, ZKS7207 ####[place] [address] Hemoglobin (Bld) [Mass/Vol] 11.4 g/dL Low 12.0-16.0 [facility] Comment on above: Performed By: #### L UB5532, URC0277, HJU0350 ####[place] [address] Lymphocytes (Bld) [#/Vol] 1.0 10*3/uL Low 1.1-5.0 [facility] Comment on above: Performed By: #### L TI1512, HFT9736, AAS6367 ####[place] [address] Lymphocytes/100 WBC (Bld) 15.7 % Low 24.0-44.0 [facility] Comment on above: Performed By: #### L ZX0053, MSN5170, MYR0098 ####[place] [address] MCH (RBC) [Entitic mass] 33.3 pg Normal 26.0-34.0 [facility] Comment on above: Performed By: #### L NY5448, NQN5159, ZCG9520 ####[place] [address] MCHC (RBC) [Mass/Vol] 35.1 g/dL Normal 32.0-36.0 [facility] Comment on above: Performed By: #### L VC6440, TNE2297, KEW2943 ####[place] [address] MCV (RBC) [Entitic vol] 95.0 fL Normal 80.0-100.0 [facility] Comment on above: Performed By: #### L OV3875, ZVJ2335, WYX8256 ####[place] [address] MDW 20.0 Normal 0.0-20.0 [facility] Comment on above: Performed By: #### L QF3650, KSM1576, DOR5212 ####[place] [address] Monocytes (Bld) [#/Vol] 0.6 10*3/uL Normal 0.0-1.4 [facility] Comment on above: Performed By: #### L DG2725, HNB2806, NVE8302 ####[place] [address] Monocytes/100 WBC (Bld) 10.3 % Normal 2.1-13.3 [facility] Comment on above: Performed By: #### L NI4155, QQZ0494, LFS0997 ####[place] [address] Neutrophils, Abs. 4.3 10*3/uL Normal 1.5-8.5 [facility] Comment on above: Performed By: #### L DI8340, ITC7085, PYT7735 ####[facility] [address] [place] [address] Neutrophils/100 WBC (Bld) 69.0 % High 35.0-66.0 [facility] Comment on above: Performed By: #### L GK8418, HDF2812, DTB7230 ####[place] [address] Platelet Cnt 65 10*3/uL Low 150-450 [facility] Comment on above: Performed By: #### L WO3646, ILM2667, SYH5396 ####[place] [address] Platelet mean volume (Bld) [Entitic vol] 9.9 fL Normal 6.5-10.0 [facility] Comment on above: Performed By: #### L NN0455, NEV8091, ROG9108 ####[place] [address] RBC (Bld) [#/Vol] 3.43 10*6/uL Low 4.00-5.20 [facility] Comment on above: Performed By: #### L LP6092, MHN3781, UAH9089 ####[place] [address] WBC (Bld) [#/Vol] 6.3 10*3/uL Normal 4.5-11.0 [facility] Comment on above: Performed By: #### L JO4781, JKF1742, FHA6343 ####[place] [address] CBC w/Differentialon 024 Basophils (Bld) [#/Vol] 0.1 10*3/uL 0.0 - 0.1 10*3/uL [facility] Basophils/100 WBC (Bld) 1.0 % 0.0 - 1.0 % [facility] Differential cell count method Nom (Bld) Auto [facility] Eosinophils (Bld) [#/Vol] 0.2 10*3/uL 0.0 - 0.5 10*3/uL [facility] Eosinophils/100 WBC (Bld) 4.0 % 0.3 - 5.0 % [facility] Erythrocyte distribution width (RBC) [Ratio] 17.7 % 10.7 - 18.7 % [facility] Hematocrit (Bld) [Volume fraction] 32.6 % Low 33.0 - 51.0 % [facility] Hemoglobin (Bld) [Mass/Vol] 11.4 g/dL Low 12.0 - 16.0 g/dL [facility] Interpretation and review of laboratory results Abnormal [facility] Lymphocytes (Bld) [#/Vol] 1.0 10*3/uL Low 1.1 - 5.0 10*3/uL [facility] Lymphocytes/100 WBC (Bld) 15.7 % Low 24.0 - 44.0 % [facility] MCH (RBC) [Entitic mass] 33.3 pg 26.0 - 34.0 pg [facility] MCHC (RBC) [Mass/Vol] 35.1 g/dL 32.0 - 36.0 g/dL [facility] MCV (RBC) [Entitic vol] 95.0 fL 80.0 - 100.0 fL [facility] Monocyte distribution width Auto (Bld) [Entitic vol] 20.0 0.0 - 20.0 [facility] Monocytes (Bld) [#/Vol] 0.6 10*3/uL 0.0 - 1.4 10*3/uL [facility] Monocytes/100 WBC (Bld) 10.3 % 2.1 - 13.3 % [facility] Neutrophils (Bld) [#/Vol] 4.3 10*3/uL 1.5 - 8.5 10*3/uL [facility] Neutrophils/100 WBC (Bld) 69.0 % High 35.0 - 66.0 % [facility] Platelet mean volume (Bld) [Entitic vol] 9.9 fL 6.5 - 10.0 fL [facility] Platelets (Bld) [#/Vol] 65 10*3/uL Low 150 - 450 10*3/uL [facility] RBC (Bld) [#/Vol] 3.43 10*6/uL Low 4.00 - 5.2 0 10*6/uL [facility] WBC (Bld) [#/Vol] 6.3 10*3/uL 4.5 - 11.0 10*3/uL [facility] COMPREHENSIVE METABOLIC PANE Merr[place] 07-26-2024 Albumin [Mass/Vol] 2.9 g/dL Low 3.2-5.0 [facility] Comment on above: Performed By: #### L XR5363, ZGK3808, KUG5550 ####[place] [address] Albumin/Globulin [Mass ratio] 0.7 {ratio} Normal [facility] Comment on above: Performed By: #### L II8568, CJS6491, PEZ0864 ####[place] [address] ALP [Catalytic activity/Vol] 123 U/L High 42-121 [facility] Comment on above: Performed By: #### L PF4010, AWG1396, NJF7615 ####[place] [address] ALT [Catalytic activity/Vol] 65 U/L High 10-60 [facility] Comment on above: Performed By: #### L NJ4427, PEB5537, QMO4400 ####[place] [address] Anion gap [Moles/Vol] 2 mmol/L Normal [facility] Comment on above: Performed By: #### L BZ5353, VCV5050, DQH9633 ####[place] [address] AST [Catalytic activity/Vol] 125 U/L High 10-42 [facility] Comment on above: Performed By: #### L GR2497, QZN6373, HLA2531 ####[place] [address] B/C 12 Normal 10-20 [facility] Comment on above: Performed By: #### L BQ7721, DGC4006, SIS9307 ####[facility] [address] [place] [address] Bilirubin.direct [Mass/Vol] 1.6 mg/dL High 0.2-1.0 [facility] Comment on above: Performed By: #### L VS0413, QBZ1893, DSX2114 ####[facility] [address] [place] [address] Calcium [Mass/Vol] 8.7 mg/dL Normal 8.5-10.5 [facility] Comment on above: Performed By: #### L IB2904, UJD2304, GPO6466 ####[place] [address] Chloride [Moles/Vol] 109 mmol/L Normal 101-111 [facility] Comment on above: Performed By: #### L AH6681, FUC0323, EZP8786 ####[place] [address] CO2 [Moles/Vol] 24 mmol/L Normal 21-31 [facility] Comment on above: Performed By: #### L WF5404, JNI6481, GLZ0522 ####[place] [address] Creatinine [Mass/Vol] 0.9 mg/dL Normal 0.4-1.0 [facility] Comment on above: Performed By: #### L VD1233, IIX8097, JMW2784 ####[place] [address] GFR/1.73 sq M.predicted MDRD (S/P/Bld) [Vol rate/Area] 66 mL/min/{1.73_m2} Normal [facility] Comment on above: Result Comment: *The estimated Glomerular Filtration Rate(EGFR) may not be accurate for children under the age of 18 yrs. To estimate the GFR for -Americans multiply the result provided by 1.21.Stage 1 90 mL/min or greaterStage 2 60-89 mL/minStage 3 30-59 mL/minStage 4 15-29 mL/minStage 5 14 mL/min or less Performed By: #### L XJ0706, WEL6920, VOT1854 ####BABATUNDE [facility] [place] [address] Glucose [Mass/Vol] 98 mg/dL Normal 70-110 [facility] Comment on above: Performed By: #### L HX0653, JSS7587, CRK8096 ####BABATUNDE [address] [address] Osmolality [Osmolality] 269 mosm/kg Normal 266-309 [facility] Comment on above: Performed By: #### L RW2261, XHN7967, NKF7825 ####BABATUNDE [address] [address] Potassium [Moles/Vol] 4.6 mmol/L Normal 3.6-5.0 [facility] Comment on above: Performed By: #### L RF1554, BMK3054, GQA6507 ####BABATUNDE [address] [address] Protein [Mass/Vol] 6.8 g/dL Normal 6.1-7.8 [facility] Comment on above: Performed By: #### L JV7605, FEK3158, LVX0883 ####BABATUNDE [address] [address] Sodium [Moles/Vol] 135 mmol/L Normal 135-145 [facility] Comment on above: Performed By: #### L JV7450, ZXU7262, RSU5557 ####BABATUNDE [address] [address] Urea nitrogen [Mass/Vol] 11 mg/dL Normal 2-32 [facility] Comment on above: Performed By: #### L PS0499, NJW3969, BWE8697 ####[place] [id number] Comprehensive Metabolic Pane merritt 07-26-2024 Albumin [Mass/Vol] 2.9 g/dL Low 3.2 - 5.0 g/dL [facility] Albumin/Globulin [Mass ratio] 0.7 {ratio} [facility] ALP [Catalytic activity/Vol] 123 U/L High 42 - 121 [iU]/L [facility] ALT [Catalytic activity/Vol] 65 U/L High 10 - 60 [iU]/L [facility] Anion gap [Moles/Vol] 2 mmol/L [facility] AST [Catalytic activity/Vol] 125 U/L High 10 - 42 [iU]/L [facility] Bilirubin [Mass/Vol] 1.6 mg/dL High 0.2 - 1 .0 mg/dL [facility] Calcium [Mass/Vol] 8.7 mg/dL 8.5 - 10. 5 mg/dL [facility] Chloride [Moles/Vol] 109 mmol/L 101 - 1 11 mmol/L [facility] CO2 [Moles/Vol] 24 mmol/L 21 - 31 mmol/L [facility] Creatinine [Mass/Vol] 0.9 mg/dL 0.4 - 1.0 mg/dL [facility] GFR/1.73 sq M.predicted MDRD (S/P/Bld) [Vol rate/Area] 66 mL/min/{1.73_m2} [facility] Comment on above: *The estimated Glome rular [...] [Mass/Vol] 98 mg/dL 70 - 110 mg/dL [facility] Interpretation and review of laboratory results Abnormal [facility] Osmolality Calc [Osmolality] 269 266 - 309 [facility] Potassium [Moles/Vol] 4.6 mmol/L 3.6 - 5.0 mmol/L [facility] Protein [Mass/Vol] 6.8 g/dL 6.1 - 7.8 g/dL [facility] Sodium [Moles/Vol] 135 mmol/L 135 - 145 mmol/L [facility] Urea nitrogen [Mass/Vol] 11 mg/dL 2 - 32 mg/dL [facility] Urea nitrogen/Creatinine [Mass ratio] 12 mg/mg 10 - [facility] PT AND APTTon 07-26-2024 aPTT Coag (Bld) [Time] 38.0 s High 25.5-35.9 [facility] Comment on above: Performed By: #### L ON7118, JDM9247, ICL3451 ####[facility] [address] [place] [address] INR Coag (PPP) [Relative time] 1.4 {INR} High 0.9-1.1 [facility] Comment on above: LEVEL OF THERAPY IND [...] MECHANICAL HEART VALVES Performed By: #### L WR0438, SLA6663, IVZ1308 ####[facility] [address] [place] [address] PT Coag (PPP) [Time] 16.9 s High 10.1-13.7 [facility] Comment on above: Performed By: #### L XR3085, PNN4226, JTB0796 ####[facility] [address] [place] [address] PT/APTT/INRon 07-26-2024 aPTT Coag (PPP) [Time] 38.0 s High 25.5 - 35.9 s [facility] Interpretation and review of laboratory results Abnormal [facility] VASCULAR PROCEDUREon 024 VASCULAR PROCEDURE Normal [facility] VASCULAR PROCEDURE Normal [facility] Vascular ProcedureOrdered By : Max Rico on 07-26-2024 [facility] Work Phone: Vascular Procedureon 024 Radiology Study observation (narrative) [facility] VASCULAR PROCEDUREon 024 VASCULAR PROCEDURE Normal [facility] FLUID CELL COUNTon 4 Basophils/100 WBC (Bld) 0 % Normal [facility] Comment on above: Performed By: #### L XJ9731, NUO3470, AZD2178, EXH7141, BZQ2463, LMZ9989 ####[address] [address] Eosinophils/100 WBC (Bld) 0 % [facility] Comment on above: Performed By: #### L GM8713, RPW2212, CUL6242, UHA7991, RJL8540, YCV9992 ####[address] [address] Lymphocytes/100 WBC (Bld) 63 % [facility] Comment on above: Performed By: #### L VP3478, HGI9147, NLM7351, WSK2950, FWC7543, LTX1735 ####[place] [address] MACROPHAGES 10 % [facility] Comment on above: Performed By: #### L NF7696, SWW2530, ZQG4717, UQY4739, MJJ8357, ESB7536 ####[place] [address] MESOTHELIAL 25 % [facility] Comment on above: Performed By: #### L VF9309, MWQ0471, RGM7514, VBX0665, ANS1466, ONC8048 ####[address] [address] Neutrophils/100 WBC (Bld) 2 % [facility] Comment on above: Performed By: #### L AQ6454, AFC9180, MIX2843, VYG8178, EPG5238, FNR6034 ####[place] [address] PATHOLOGY REVIEW dmp [facility] Comment on above: Result Comment: Soo kumar with manual differential. Aurora Amos DO 07/12/2024 22:59 Performed By: #### L OK1949, OBC1212, KWA6388, RYM6235, NHY1261, BMI9270 ####[facility] [place] [address] PLASMA CELLS 0 % Normal [facility] Comment on above: Performed By: #### L FX2900, LSM7951, YRL7449, QNW9620, NLS6064, NUF7455 ####[place] [id number] [place] [address] OTHER 0 Normal [facility] Comment on above: Performed By: #### L ZU4000, PBN7304, NVH4387, IPJ2374, OBA9699, RDO2982 ####[place] [address] Albumin, Body Fluidon 2023 Albumin, Body Fluid 474 mg/dL Normal [facility] Comment on above: Result Comment: INTE RPRETIVE INFORMATION: Albumin, Body FluidA reference interval has not been established for body fluidspecimens.This test was developed and its performance characteristicsdetermined by [facility]. It has not been cleared orapproved by the U.S. Food and Drug Administration. This test wasperformed in a CLIA-certified laboratory and is intended forclinical purposes.Performed By: [facility] [place] [address]Xymdpauvew Director: Elvin Diaz MD, PhDCLIA Number: [id number] Performed By: #### L RA1017, LZE6747, OHV8926, UUJ8787, ZLW3564, NST3637 ####[place] [id number] [place] [address] Source: ascites Normal [facility] Comment on above: Result Comment: Coni ected result;Previously reported as ascites, by V/AUT at 09:20 on 07/09/24 Performed By: #### L RL4719, HVV4236, LQH3658, MKF8336, GDZ5537, RIS4127 ####[place] [id number] [place] [address] CBC w/ Differentialon 2023 Basophil Abs. 0.0 10*3/uL Normal 0.0-0.1 [facility] Comment on above: Performed By: #### L XI2409, VVN5674 ####[place] [address] Basophils/100 WBC (Bld) 0.7 % Normal 0.0-1.0 [facility] Comment on above: Performed By: #### L MA0145, VYN9777 ####[place] [address] Differential type Auto Normal [facility] Comment on above: Performed By: #### L MK6947, UVW2708 ####[place] [address] Eosinophils (Bld) [#/Vol] 0.2 10*3/uL Normal 0.0-0.5 [facility] Comment on above: Performed By: #### L KR6319, DGO0045 ####[place] [address] Eosinophils/100 WBC (Bld) 4.7 % Normal 0.3-5.0 [facility] Comment on above: Performed By: #### L UQ0654, MTW9850 ####[place] [address] Erythrocyte distribution width (RBC) [Ratio] 17.6 % Normal 10.7-18.7 [facility] Comment on above: Performed By: #### L AZ2680, ZGB8816 ####[place] [address] Hematocrit (Bld) [Volume fraction] 29.4 % Low 33.0-51.0 [facility] Comment on above: Performed By: #### L VJ3259, XVM5422 ####[place] [address] Hemoglobin (Bld) [Mass/Vol] 10.5 g/dL Low 12.0-16.0 [facility] Comment on above: Performed By: #### L KK9634, CRW3955 ####[place] [address] Lymphocytes (Bld) [#/Vol] 1.1 10*3/uL Normal 1.1-5.0 [facility] Comment on above: Performed By: #### L XA8153, WSD1842 ####[place] [address] Lymphocytes/100 WBC (Bld) 20.8 % Low 24.0-44.0 [facility] Comment on above: Performed By: #### L [id number], [id number] ####[place] [address] MCH (RBC) [Entitic mass] 32.9 pg Normal 26.0-34.0 [facility] Comment on above: Performed By: #### L [id number], [id number] ####[place] [address] MCHC (RBC) [Mass/Vol] 35.7 g/dL Normal 32.0-36.0 [facility] Comment on above: Performed By: #### L [id number], [id number] ####[place] [address] MCV (RBC) [Entitic vol] 92.1 fL Normal 80.0-100.0 [facility] Comment on above: Performed By: #### L [id number], [id number] ####[place] [address] Monocytes (Bld) [#/Vol] 0.7 10*3/uL Normal 0.0-1.4 [facility] Comment on above: Performed By: #### L [id number], [id number] ####[place] [address] Monocytes/100 WBC (Bld) 14.3 % High 2.1-13.3 [facility] Comment on above: Performed By: #### L [id number], [id number] ####[place] [address] Neutrophils, Abs. 3.1 10*3/uL Normal 1.5-8.5 [facility] Comment on above: Performed By: #### L [id number], [id number] ####[place] [address] Neutrophils/100 WBC (Bld) 59.5 % Normal 35.0-66.0 [facility] Comment on above: Performed By: #### L [id number], [id number] ####[place] [address] Platelet Cnt 63 10*3/uL Low 150-450 [facility] Comment on above: Performed By: #### L [id number], [id number] ####[place] [address] Platelet mean volume (Bld) [Entitic vol] 9.5 fL Normal 6.5-10.0 [facility] Comment on above: Performed By: #### L [id number], [id number] ####[place] [address] RBC (Bld) [#/Vol] 3.20 10*6/uL Low 4.00-5.20 [facility] Comment on above: Performed By: #### L [id number], [id number] ####[place] [address] WBC (Bld) [#/Vol] 5.2 10*3/uL Normal 4.5-11.0 [facility] Comment on above: Performed By: #### L DK6125, EJA3734 ####[place] [address] CBC w/Differentialon 024 Basophils (Bld) [#/Vol] 0.0 10*3/uL 0.0 - 0.1 10*3/uL [facility] Basophils/100 WBC (Bld) 0.7 % 0.0 - 1.0 % [facility] Differential cell count method Nom (Bld) Auto [facility] Eosinophils (Bld) [#/Vol] 0.2 10*3/uL 0.0 - 0.5 10*3/uL [facility] Eosinophils/100 WBC (Bld) 4.7 % 0.3 - 5.0 % [facility] Erythrocyte distribution width (RBC) [Ratio] 17.6 % 10.7 - 18.7 % [facility] Hematocrit (Bld) [Volume fraction] 29.4 % Low 33.0 - 51.0 % [facility] Hemoglobin (Bld) [Mass/Vol] 10.5 g/dL Low 12.0 - 16.0 g/dL [facility] Interpretation and review of laboratory results Abnormal [facility] Lymphocytes (Bld) [#/Vol] 1.1 10*3/uL 1.1 - 5.0 10*3/uL [facility] Lymphocytes/100 WBC (Bld) 20.8 % Low 24.0 - 44.0 % [facility] MCH (RBC) [Entitic mass] 32.9 pg 26.0 - 34.0 pg [facility] MCHC (RBC) [Mass/Vol] 35.7 g/dL 32.0 - 36.0 g/dL [facility] MCV (RBC) [Entitic vol] 92.1 fL 80.0 - 100.0 fL [facility] Monocytes (Bld) [#/Vol] 0.7 10*3/uL 0.0 - 1.4 10*3/uL [facility] Monocytes/100 WBC (Bld) 14.3 % High 2.1 - 13.3 % [facility] Neutrophils (Bld) [#/Vol] 3.1 10*3/uL 1.5 - 8.5 10*3/uL [facility] Neutrophils/100 WBC (Bld) 59.5 % 35.0 - 66.0 % [facility] Platelet mean volume (Bld) [Entitic vol] 9.5 fL 6.5 - 10.0 fL [facility] Platelets (Bld) [#/Vol] 63 10*3/uL Low 150 - 450 10*3/uL [facility] RBC (Bld) [#/Vol] 3.20 10*6/uL Low 4.00 - 5.2 0 10*6/uL [facility] WBC (Bld) [#/Vol] 5.2 10*3/uL 4.5 - 11.0 10*3/uL [facility] COMPREHENSIVE METABOLIC PANE [place] 07-10-2024 Albumin [Mass/Vol] 3.1 g/dL Low 3.2-5.0 [facility] Comment on above: Performed By: #### L HW9603, KJI8784 ####[place] [address] Albumin/Globulin [Mass ratio] 1.2 {ratio} Normal [facility] Comment on above: Performed By: #### L LS9079, EAM3393 ####[place] [address] ALP [Catalytic activity/Vol] 84 U/L Normal 42-121 [facility] Comment on above: Performed By: #### L NA4177, KCI0285 ####[place] [address] ALT [Catalytic activity/Vol] 44 U/L Normal 10-60 [facility] Comment on above: Performed By: #### L QP2995, HKP2393 ####[place] [address] Anion gap [Moles/Vol] 6 mmol/L Normal [facility] Comment on above: Performed By: #### L FC5279, VRA6420 ####[place] [address] AST [Catalytic activity/Vol] 69 U/L High 10-42 [facility] Comment on above: Performed By: #### L TE0003, PJF7275 ####[place] [address] B/C 11 Normal 10-20 [facility] Comment on above: Performed By: #### L VN8269, PEP4754 ####[place] [address] Bilirubin.direct [Mass/Vol] 1.6 mg/dL High 0.2-1.0 [facility] Comment on above: Performed By: #### L IX3768, UUY5453 ####[place] [address] [place] [address] Calcium [Mass/Vol] 9.0 mg/dL Normal 8.5-10.5 [facility] Comment on above: Performed By: #### L MJ1620, GSA7026 ####[place] [address] [place] [address] Chloride [Moles/Vol] 107 mmol/L Normal 101-111 [facility] Comment on above: Performed By: #### L IH4105, EKO8704 ####[place] [address] CO2 [Moles/Vol] 25 mmol/L Normal 21-31 [facility] Comment on above: Performed By: #### L GV7069, ZVT6308 ####[place] [address] Creatinine [Mass/Vol] 0.8 mg/dL Normal 0.4-1.0 [facility] Comment on above: Performed By: #### L CA6605, KSR6000 ####[place] [address] GFR/1.73 sq M.predicted MDRD (S/P/Bld) [Vol rate/Area] 76 mL/min/{1.73_m2} Normal [facility] Comment on above: Result Comment: *The estimated Glomerular Filtration Rate(EGFR) may not be accurate for children under the age of 18 yrs. To estimate the GFR for -Americans multiply the result provided by 1.21.Stage 1 90 mL/min or greaterStage 2 60-89 mL/minStage 3 30-59 mL/minStage 4 15-29 mL/minStage 5 14 mL/min or less Performed By: #### L PS5637, NYL4284 ####[place] [address] Glucose [Mass/Vol] 114 mg/dL High 70-110 [facility] Comment on above: Performed By: #### L CS7130, WGE6697 ####[address] [address] Osmolality [Osmolality] 275 mosm/kg Normal 266-309 [facility] Comment on above: Performed By: #### L NU2251, OXR9330 ####[place] [address] Potassium [Moles/Vol] 4.3 mmol/L Normal 3.6-5.0 [facility] Comment on above: Performed By: #### L SX9156, UNS9615 ####[place] [address] [place] [address] Protein [Mass/Vol] 5.7 g/dL Low 6.1-7.8 [facility] Comment on above: Performed By: #### L AY6545, VRZ4132 ####[place] [address] Sodium [Moles/Vol] 138 mmol/L Normal 135-145 [facility] Comment on above: Performed By: #### L OU6147, IQL0906 ####[place] [address] Urea nitrogen [Mass/Vol] 9 mg/dL Normal 2-32 [facility] Comment on above: Performed By: #### L QK2240, LKE4827 ####[place] [address] Comprehensive Metabolic Pane m[place] 07-10-2024 Albumin [Mass/Vol] 3.1 g/dL Low 3.2 - 5.0 g/dL [facility] Albumin/Globulin [Mass ratio] 1.2 {ratio} [facility] ALP [Catalytic activity/Vol] 84 U/L 42 - 121 [iU]/L [facility] ALT [Catalytic activity/Vol] 44 U/L 10 - 60 [iU]/L [facility] Anion gap [Moles/Vol] 6 mmol/L [facility] AST [Catalytic activity/Vol] 69 U/L High 10 - 42 [iU]/L [facility] Bilirubin [Mass/Vol] 1.6 mg/dL High 0.2 - 1 .0 mg/dL [facility] Calcium [Mass/Vol] 9.0 mg/dL 8.5 - 10. 5 mg/dL [facility] Chloride [Moles/Vol] 107 mmol/L 101 - 1 11 mmol/L [facility] CO2 [Moles/Vol] 25 mmol/L 21 - 31 mmol/L [facility] Creatinine [Mass/Vol] 0.8 mg/dL 0.4 - 1.0 mg/dL [facility] GFR/1.73 sq M.predicted MDRD (S/P/Bld) [Vol rate/Area] 76 mL/min/{1.73_m2} [facility] Comment on above: *The estimated Glome rular [...] 114 mg/dL High 70 - 110 mg/dL [facility] Interpretation and review of laboratory results Abnormal [facility] Osmolality Calc [Osmolality] 275 266 - 309 [facility] Potassium [Moles/Vol] 4.3 mmol/L 3.6 - 5.0 mmol/L [facility] Protein [Mass/Vol] 5.7 g/dL Low 6.1 - 7.8 g/dL [facility] Sodium [Moles/Vol] 138 mmol/L 135 - 145 mmol/L [facility] Urea nitrogen [Mass/Vol] 9 mg/dL 2 - 32 mg/dL [facility] Urea nitrogen/Creatinine [Mass ratio] 11 mg/mg 10 - 20 [facility] CBC w/ Differentialon 2023 Basophil Abs. 0.1 10*3/uL Normal 0.0-0.1 [facility] Comment on above: Performed By: #### L TY2471, ELZ9607 ####[facility] [place] [address] [place] [address] Basophils/100 WBC (Bld) 1.0 % Normal 0.0-1.0 [facility] Comment on above: Performed By: #### L GT5392, XOO2285 ####[place] [address] Differential type Auto Normal [facility] Comment on above: Performed By: #### L KH0972, XNY9246 ####[place] [address] Eosinophils (Bld) [#/Vol] 0.4 10*3/uL Normal 0.0-0.5 [facility] Comment on above: Performed By: #### L SU7729, RQY9444 ####[place] [address] Eosinophils/100 WBC (Bld) 5.8 % High 0.3-5.0 [facility] Comment on above: Performed By: #### L VQ0611, KAB3819 ####[place] [address] Erythrocyte distribution width (RBC) [Ratio] 17.9 % Normal 10.7-18.7 [facility] Comment on above: Performed By: #### L TH3320, IYW0797 ####[place] [address] Hematocrit (Bld) [Volume fraction] 35.0 % Normal 33.0-51.0 [facility] Comment on above: Performed By: #### L GK8427, ESZ1395 ####[place] [address] Hemoglobin (Bld) [Mass/Vol] 12.3 g/dL Normal 12.0-16.0 [facility] Comment on above: Performed By: #### L SP1948, QMF4615 ####[place] [address] Lymphocytes (Bld) [#/Vol] 2.0 10*3/uL Normal 1.1-5.0 [facility] Comment on above: Performed By: #### L JH5002, JVF8252 ####BABATUNDE [address] [address] Lymphocytes/100 WBC (Bld) 26.1 % Normal 24.0-44.0 [facility] Comment on above: Performed By: #### L JW7327, JKP6539 ####BABATUNDE [address] [address] MCH (RBC) [Entitic mass] 32.6 pg Normal 26.0-34.0 [facility] Comment on above: Performed By: #### L AL8777, GXP8253 ####[place] [address] MCHC (RBC) [Mass/Vol] 35.1 g/dL Normal 32.0-36.0 [facility] Comment on above: Performed By: #### L EY1606, RFL0964 ####[place] [address] MCV (RBC) [Entitic vol] 92.8 fL Normal 80.0-100.0 [facility] Comment on above: Performed By: #### L DQ5922, OJD2933 ####[place] [address] Monocytes (Bld) [#/Vol] 0.9 10*3/uL Normal 0.0-1.4 [facility] Comment on above: Performed By: #### L FC6578, MCR9647 ####[place] [address] Monocytes/100 WBC (Bld) 12.1 % Normal 2.1-13.3 [facility] Comment on above: Performed By: #### L GX2673, RJD4452 ####[place] [id number] Neutrophils, Abs. 4.2 10*3/uL Normal 1.5-8.5 [facility] Comment on above: Performed By: #### L LU1928, KFF1220 ####[address] [address] Neutrophils/100 WBC (Bld) 55.0 % Normal 35.0-66.0 [facility] Comment on above: Performed By: #### L RQ0605, ZUN1823 ####[place] [address] Platelet Cnt 83 10*3/uL Low 150-450 [facility] Comment on above: Performed By: #### L IM9415, OTM0013 ####[place] [address] Platelet mean volume (Bld) [Entitic vol] 9.6 fL Normal 6.5-10.0 [facility] Comment on above: Performed By: #### L KR8909, UZJ7173 ####[place] [address] RBC (Bld) [#/Vol] 3.77 10*6/uL Low 4.00-5.20 [facility] Comment on above: Performed By: #### L EY9699, GVA7558 ####[place] [address] WBC (Bld) [#/Vol] 7.6 10*3/uL Normal 4.5-11.0 [facility] Comment on above: Performed By: #### L QL4343, GQE0313 ####[place] [address] CBC w/Differentialon 07-09- 024 Basophils (Bld) [#/Vol] 0.1 10*3/uL 0.0 - 0.1 10*3/uL [facility] Basophils/100 WBC (Bld) 1.0 % 0.0 - 1.0 % [facility] Differential cell count method Nom (Bld) Auto [facility] Eosinophils (Bld) [#/Vol] 0.4 10*3/uL 0.0 - 0.5 10*3/uL [facility] Eosinophils/100 WBC (Bld) 5.8 % High 0.3 - 5.0 % [facility] Erythrocyte distribution width (RBC) [Ratio] 17.9 % 10.7 - 18.7 % [facility] Hematocrit (Bld) [Volume fraction] 35.0 % 33.0 - 51.0 % [facility] Hemoglobin (Bld) [Mass/Vol] 12.3 g/dL 12.0 - 16.0 g/dL [facility] Interpretation and review of laboratory results Abnormal [facility] Lymphocytes (Bld) [#/Vol] 2.0 10*3/uL 1.1 - 5.0 10*3/uL [facility] Lymphocytes/100 WBC (Bld) 26.1 % 24.0 - 44.0 % [facility] MCH (RBC) [Entitic mass] 32.6 pg 26.0 - 34.0 pg [facility] MCHC (RBC) [Mass/Vol] 35.1 g/dL 32.0 - 36.0 g/dL [facility] MCV (RBC) [Entitic vol] 92.8 fL 80.0 - 100.0 fL [facility] Monocytes (Bld) [#/Vol] 0.9 10*3/uL 0.0 - 1.4 10*3/uL [facility] Monocytes/100 WBC (Bld) 12.1 % 2.1 - 13.3 % [facility] Neutrophils (Bld) [#/Vol] 4.2 10*3/uL 1.5 - 8.5 10*3/uL [facility] Neutrophils/100 WBC (Bld) 55.0 % 35.0 - 66.0 % [facility] Platelet mean volume (Bld) [Entitic vol] 9.6 fL 6.5 - 10.0 fL [facility] Platelets (Bld) [#/Vol] 83 10*3/uL Low 150 - 450 10*3/uL [facility] RBC (Bld) [#/Vol] 3.77 10*6/uL Low 4.00 - 5.2 0 10*6/uL [facility] WBC (Bld) [#/Vol] 7.6 10*3/uL 4.5 - 11.0 10*3/uL [facility] COMPREHENSIVE METABOLIC PANE [place] 07-09-2024 Albumin [Mass/Vol] 3.1 g/dL Low 3.2-5.0 [facility] Comment on above: Performed By: #### L HV3729, JKW4408 ####[place] [address] Albumin/Globulin [Mass ratio] 0.8 {ratio} Normal [facility] Comment on above: Performed By: #### L KT8793, JLV8857 ####[place] [address] ALP [Catalytic activity/Vol] 96 U/L Normal 42-121 [facility] Comment on above: Performed By: #### L PC3966, KVZ4344 ####[place] [address] ALT [Catalytic activity/Vol] 54 U/L Normal 10-60 [facility] Comment on above: Performed By: #### L QD1416, MYV8662 ####[place] [address] Anion gap [Moles/Vol] 6 mmol/L Normal [facility] Comment on above: Performed By: #### L XB4076, YCS2525 ####[place] [address] AST [Catalytic activity/Vol] 89 U/L High 10-42 [facility] Comment on above: Performed By: #### L QU2419, DJH8778 ####[place] [address] B/C 14 Normal 10-20 [facility] Comment on above: Performed By: #### L AU3571, BSG7167 ####[place] [address] Bilirubin.direct [Mass/Vol] 1.9 mg/dL High 0.2-1.0 [facility] Comment on above: Performed By: #### L WT7740, GSH8974 ####[place] [address] Calcium [Mass/Vol] 9.2 mg/dL Normal 8.5-10.5 [facility] Comment on above: Performed By: #### L YP1538, HNR4796 ####[place] [address] [place] [address] Chloride [Moles/Vol] 109 mmol/L Normal 101-111 [facility] Comment on above: Performed By: #### L FQ8742, QKE4781 ####BABATUN[place] [address] [address] CO2 [Moles/Vol] 21 mmol/L Normal 21-31 [facility] Comment on above: Performed By: #### L TD2132, TXV2604 ####[place] [address] Creatinine [Mass/Vol] 0.9 mg/dL Normal 0.4-1.0 [facility] Comment on above: Performed By: #### L XJ8025, TBZ3135 ####[place] [address] GFR/1.73 sq M.predicted MDRD (S/P/Bld) [Vol rate/Area] 66 mL/min/{1.73_m2} Normal [facility] Comment on above: Result Comment: *The estimated Glomerular Filtration Rate(EGFR) may not be accurate for children under the age of 18 yrs. To estimate the GFR for -Americans multiply the result provided by 1.21.Stage 1 90 mL/min or greaterStage 2 60-89 mL/minStage 3 30-59 mL/minStage 4 15-29 mL/minStage 5 14 mL/min or less Performed By: #### L SA9487, YXC0537 ####[place] [address] Glucose [Mass/Vol] 77 mg/dL Normal 70-110 [facility] Comment on above: Performed By: #### L YA3412, QAA4089 ####BABAT[place] [address] [address] Osmolality [Osmolality] 271 mosm/kg Normal 266-309 [facility] Comment on above: Performed By: #### L NW2427, DNC5006 ####[facility] [address] [place] [address] Potassium [Moles/Vol] 4.2 mmol/L Normal 3.6-5.0 [facility] Comment on above: Performed By: #### L DV8028, CWF7681 ####[place] [address] [place] [address] Protein [Mass/Vol] 7.0 g/dL Normal 6.1-7.8 [facility] Comment on above: Performed By: #### L SF9745, JRN5058 ####[place] [address] [place] [address] Sodium [Moles/Vol] 136 mmol/L Normal 135-145 [facility] Comment on above: Performed By: #### L VR9562, KMQ5453 ####[place] [address] [place] [address] Urea nitrogen [Mass/Vol] 13 mg/dL Normal 2-32 [facility] Comment on above: Performed By: #### L XY6040, NHQ9905 ####[place] [address] [place] [address] Comprehensive Metabolic Pane m[place]itt 07-09-2024 Albumin [Mass/Vol] 3.1 g/dL Low 3.2 - 5.0 g/dL [facility] Albumin/Globulin [Mass ratio] 0.8 {ratio} [facility] ALP [Catalytic activity/Vol] 96 U/L 42 - 121 [iU]/L [facility] ALT [Catalytic activity/Vol] 54 U/L 10 - 60 [iU]/L [facility] Anion gap [Moles/Vol] 6 mmol/L [facility] AST [Catalytic activity/Vol] 89 U/L High 10 - 42 [iU]/L [facility] Bilirubin [Mass/Vol] 1.9 mg/dL High 0.2 - 1 .0 mg/dL [facility] Calcium [Mass/Vol] 9.2 mg/dL 8.5 - 10. 5 mg/dL [facility] Chloride [Moles/Vol] 109 mmol/L 101 - 1 11 mmol/L [facility] CO2 [Moles/Vol] 21 mmol/L 21 - 31 mmol/L [facility] Creatinine [Mass/Vol] 0.9 mg/dL 0.4 - 1.0 mg/dL [facility] GFR/1.73 sq M.predicted MDRD (S/P/Bld) [Vol rate/Area] 66 mL/min/{1.73_m2} [facility] Comment on above: *The estimated Glome rular [...] [Mass/Vol] 77 mg/dL 70 - 110 mg/dL [facility] Interpretation and review of laboratory results Abnormal [facility] Osmolality Calc [Osmolality] 271 266 - 309 [facility] Potassium [Moles/Vol] 4.2 mmol/L 3.6 - 5.0 mmol/L [facility] Protein [Mass/Vol] 7.0 g/dL 6.1 - 7.8 g/dL [facility] Sodium [Moles/Vol] 136 mmol/L 135 - 145 mmol/L [facility] Urea nitrogen [Mass/Vol] 13 mg/dL 2 - 32 mg/dL [facility] Urea nitrogen/Creatinine [Mass ratio] 14 mg/mg 10 - 20 [facility] FLUID CELL COUNTon 4 Character (U) Clear Normal [facility] Comment on above: Performed By: #### L IQ1786, WPZ2009, IRN8608, LFR9853, NPK3947, PPO2107 ####[facility] [address] [place] [address] Color (U) Yellow Normal [facility] Comment on above: Performed By: #### L BW5846, XYZ5935, OCI6828, KPP5413, NYZ7516, QOZ1679 ####[place] [address] FLD COMMENT see below [facility] Comment on above: Result Comment: Refe rence ranges & other method performance specifications have not beenestablished for this body fluid type. The test result must be integratedinto the clinical context for interpretation. Performed By: #### L BA6278, YHA7581, YWK3786, AUG9839, NCI3685, RQA7432 ####[place] [address] RBC 340 uL [facility] Comment on above: Performed By: #### L FU5088, IHH5096, TFJ9411, QVS5422, FZB8938, XTX2628 ####[place] [address] SOURCE [facility] Comment on above: Performed By: #### L IE8128, KRE9534, FTQ6531, IZJ8152, GHI8758, EBG6381 ####[place] [address] TOTAL NUC. CELLS 124 uL [facility] Comment on above: Result Comment: RESU LTS OF COUNT MAY BE INACCURATE IF SPECIMEN IS PARTIALLYCLOTTED OR EXHIBIT CELL CLUMPING. Performed By: #### L HK3911, VVX2414, GZR6856, MTA0320, VSF5048, PCT2942 ####[place] [address] TUBE NUMBER Syringe [facility] Comment on above: Performed By: #### L NJ3525, SIK4768, DWO4809, RNF6598, GWZ5665, VOE6862 ####[place] [address] VOLUME 50.0 [facility] Comment on above: Performed By: #### L KL6443, FKC6113, KAG2871, UFK4358, MJZ2681, FCT9542 ####[place] [address] FLUID CULTUREon 07-09-2024 FLUID CULTURE Bacteria identified in Body fluid by Culture FLUID CULTURE: No Growth - Preliminary Microscopic observation [Identifier] in Specimen by Gram stain GRAM STAIN SMEAR: No WBC'S. No organisms seen. Normal [facility] Comment on above: Performed By: #### L KY8206 ####[facility] [address] [place] [address] GLUCOSE, FLUIDon 07-09-2024 GLUCOSE, FLUID 110 mg/dL Normal [facility] Comment on above: Result Comment: Refe rence ranges & other method performance specifications have not beenestablished for this body fluid type. The test result must be integratedinto the clinical context for interpretation. Performed By: #### L RR1358, LQD4866, TIZ1382, SBG5444, CUE0744, FWW1892 ####[place] [id number] [place] [address] Glucose Body Fluidon 024 Glucose (Body fld) [Mass/Vol] 110 mg/dL [facility] Comment on above: Reference ranges & o ther method performance specifications have not been established for this body fluid type. The test result must be integrated into the clinical context for interpretation. LDH, FLUIDon 07-09-2024 LDH FLUID 45 [iU]/L Low 60-160 [facility] Comment on above: Performed By: #### L YK1397, VVY2550, HRU6829, GOQ2424, LUU6557, PMV5838 ####[place] [address] [place] [address] LDH, Fluidon 07-09-2024 Interpretation and review of laboratory results Abnormal [facility] LDH (Body fld) [Catalytic activity/Vol] 45 [iU]/L Low 60 - 160 [iU]/L [facility] NON FISH PROCESSOR CASESon 07-09-2024 NON FISH PROCESSOR CASES Normal [facility] Comment on above: Performed By: #### L YH7660 ####[facility] [address] [place] [address] No Panel Informationon 07-09 [facility] PH, FLUIDon 07-09-2024 PH, FLUID 7.1 Normal [facility] Comment on above: Performed By: #### L TR1061, HWX3413, WVN6363, DDR2852, RZA6064, KYF5181 ####[facility] [address] [place] [address] PROTEIN, FLUIDon 07-09-2024 PROTEIN, FLUID 3.0 g/dL Normal [facility] Comment on above: Result Comment: Refe rence ranges & other method performance specifications have not beenestablished for this body fluid type. The test result must be integratedinto the clinical context for interpretation. Performed By: #### L NN3388, JJD3934, VUR1270, SDV7418, VMO0975, XSB1831 ####[facility] [address] [place] [address] SOURCE [facility] Normal [facility] Comment on above: Performed By: #### L GC2369, LYY4415, GGL0857, GFD5989, UVW1000, DZY2926 ####[facility] [address] [place] [address] Ph Body Fluidon 07-09-2024 pH (Body fld) 7.1 [pH] [facility] Specimen source Nom (Body fld) [facility] Protein Body Fluidon 024 Protein (Body fld) [Mass/Vol] 3.0 g/dL [facility] Comment on above: Reference ranges & o ther method performance specifications have not been established for this body fluid type. The test result must be integrated into the clinical context for interpretation. Specimen source Nom (Body fld) [facility] Rapid Tox Screen, Urine (KDM C)on 07-09-2024 Amphetamine cutoff Screen (U) [Mass/Vol] Negative Cutoff: 1000 ng/mL [facility] Barbiturates cutoff Screen (U) [Mass/Vol] Negative Cutoff: 200 ng/mL [facility] Benzodiazepines cutoff Screen (U) [Mass/Vol] Negative Cutoff: 200 ng/mL [facility] Buprenorphine [Mass/Vol] Negative Cutoff: 5 ng/mL [facility] Comment on above: Note, cutoff changed from 10 to 5 ng/mL 08/10/18. Cocaine cutoff Screen (U) [Mass/Vol] Negative Cutoff: 300 ng/mL [facility] fentaNYL Screen Ql (U) Negative Cutof f: 5 ng/mL [facility] Comment on above: Note, cutoff changed from 200 to 5 ng/mL 04/29/22. Interpretation and review of laboratory results Abnormal [facility] Methadone cutoff Screen (U) [Mass/Vol] Negative Cutoff: 300 ng/mL [facility] Opiates cutoff Screen (U) [Mass/Vol] Positive Abnormal Cutoff: 300 ng/mL [facility] oxyCODONE cutoff Screen (U) [Mass/Vol] Negative Cutoff: 300 ng/mL [facility] Phencyclidine cutoff Screen (U) [Mass/Vol] Negative Cutoff: 25 ng/mL [facility] Propoxyphene cutoff Screen (U) [Mass/Vol] Negative Cutoff: 300 ng/mL [facility] Comment on above: IMPORTANT This is a screening method. The test results are to be used for medical purposes only. Many common compounds can cause false positive results. Confirmation of a positive result is available upon request. Tetrahydrocannabinol cutoff Screen (U) [Mass/Vol] Positive Abnormal Cutoff: 50 ng/mL [facility] TOX SCREEN, RAPID, URon 10- AMPHETAMINES, UR Negative Normal Cutoff: 1000 [facility] Comment on above: Performed By: #### L CQ3884 ####[place] [address] BARBITURATES, UR Negative Normal Cutoff: 200 [facility] Comment on above: Performed By: #### L NL5486 ####[place] [address] BENZODIAZEPINES, UR Negative Normal Cutoff: 200 [facility] Comment on above: Performed By: #### L TC8245 ####[place] [address] BUPRENORPHINE, UR Negative Normal Cutoff: 5 [facility] Comment on above: Result Comment: Note , cutoff changed from 10 to 5 ng/mL 08/10/18. Performed By: #### L [id number] ####[place] [address] CANNABINOID, UR Positive Abnormal Cutoff: 50 [facility] Comment on above: Performed By: #### L [id number] ####[place] [address] COCAINE, UR Negative Normal Cutoff: 300 [facility] Comment on above: Performed By: #### L [id number] ####[place] [address] FENTANYL, UR Negative Normal Cutoff: 5 [facility] Comment on above: Result Comment: Note , cutoff changed from 200 to 5 ng/mL 04/29/22. Performed By: #### L [id number] ####[place] [address] METHADONE, UR Negative Normal Cutoff: 300 [facility] Comment on above: Performed By: #### L PG5441 ####[place] [address] OPIATES, UR Positive Abnormal Cutoff: 300 [facility] Comment on above: Performed By: #### L NT4332 ####[place] [address] OXYCODONE, UR Negative Normal Cutoff: 300 [facility] Comment on above: Performed By: #### L YB7946 ####[place] [address] PHENCYCLIDINE, UR Negative Normal Cutoff: 25 [facility] Comment on above: Performed By: #### L AG6328 ####[place] [address] PROPOXYPHENE, UR Negative Normal Cutoff: 300 [facility] Comment on above: Result Comment: IM PORTANTThis is a screening method. The test results are to be usedfor medical purposes only. Many common compounds can cause false positiveresults. Confirmation of a positive result is available upon request. Performed By: #### L [id number] ####[place] [address] VASCULAR PROCEDUREon 024 VASCULAR PROCEDURE Normal [facility] Vascular Procedureon 024 : Technically successful ultrasound-guided therapeutic paracentesis with aspiration of 4400 cc of cloudy yellow fluid. SIGNED: Ginger Milton MD 07/09/2024 5:10 PM [facility] INTERVENTIONAL RADIOLOGY REPORT PATIENT: Carolina Hightower DATE [...] provided using 1% buffered lidocaine. A 6.5 Rw[place] non-locking Resolve pigtail catheter was advanced into the peritoneal space. 4400 cc of cloudy yellow fluid were obtained. The catheter was removed intact. A dry sterile dressing was applied to the puncture site. The patient tolerated the procedure well and there were no immediate complications. The patient was given 37.5 g IV albumin. FINDINGS: Moderate amount of free peritoneal fluid/ascites. [facility] Radiology Study observation (narrative) [facility] C. trachomatis+N. gonorrhoea e DNA PHYLLIS+probe Ql (Unsp spec)on 07-08-2024 C. trachomatis rRNA PHYLLIS+probe Ql (Unsp spec) Negative Normal Negative for Chlamydia trachomatis by amplificaton [facility] Comment on above: Order Comment: Speci men Type: MICROBIAL ISOLATE Ordering Facility: [facility] Address: [id number] [place] [address], [place] [address] Performed By: #### T [facility], [address]-2 #### [facility] CLIA [id number] [address] [place] [address] [place] N. gonorrhoeae rRNA PHYLLIS+probe Ql (Unsp spec) Negative Normal Negative for Neisseria gonorrhoeae by amplification [facility] Comment on above: Order Comment: Speci men Type: MICROBIAL ISOLATE Ordering Facility: [facility] Address: [id number] [place] [address], [address], [place] [address] Performed By: #### T RVAMP, 86466-3 #### [facility] CLIA [id number] [address] [place] [id number] [place] CBC w/ Differentialon 2023 Basophil Abs. 0.1 10*3/uL Normal 0.0-0.1 [facility] Comment on above: Order Comment: Esme ctlelo has been rescheduled by SW at 07/08/2024 18:16 Reason: miss Performed By: #### L EI7319, SPZ1122, NKD5404 ####[place] [address] [place] [address] Basophils/100 WBC (Bld) 1.1 % High 0.0-1.0 [facility] Comment on above: Order Comment: Esme ctlelo has been rescheduled by SW at 07/08/2024 18:16 Reason: miss Performed By: #### L DB1408, FXH5895, TJY1571 ####[place] [address] [place] [address] Differential type Auto Normal [facility] Comment on above: Order Comment: Esme ctlelo has been rescheduled by SW at 07/08/2024 18:16 Reason: miss Performed By: #### L CN8792, IDI6977, LPI3178 ####BABATUNDE [address] [address] Eosinophils (Bld) [#/Vol] 0.3 10*3/uL Normal 0.0-0.5 [facility] Comment on above: Order Comment: Esme ction has been rescheduled by SW at 07/08/2024 18:16 Reason: miss Performed By: #### L KH0091, KRY7318, JGG8360 ####[place] [address] [place] [address] Eosinophils/100 WBC (Bld) 4.4 % Normal 0.3-5.0 [facility] Comment on above: Order Comment: Esme ction has been rescheduled by SW at 07/08/2024 18:16 Reason: miss Performed By: #### L JE4877, KRA6065, BFT4549 ####[place] [address] Erythrocyte distribution width (RBC) [Ratio] 17.8 % Normal 10.7-18.7 [facility] Comment on above: Order Comment: Esme bradley has been rescheduled by at 07/08/2024 18:16 Reason: miss Performed By: #### L QK1547, OOK5187, HEO7200 ####[place] [address] Hematocrit (Bld) [Volume fraction] 33.4 % Normal 33.0-51.0 [facility] Comment on above: Order Comment: Esme bradley has been rescheduled by at 07/08/2024 18:16 Reason: miss Performed By: #### L UL6801, VGN2131, YSW7237 ####[place] [address] Hemoglobin (Bld) [Mass/Vol] 11.9 g/dL Low 12.0-16.0 [facility] Comment on above: Order Comment: Esme bradley has been rescheduled by at 07/08/2024 18:16 Reason: miss Performed By: #### L IH4843, QHG3439, UCT0433 ####[place] [address] Lymphocytes (Bld) [#/Vol] 1.6 10*3/uL Normal 1.1-5.0 [facility] Comment on above: Order Comment: Esme bradley has been rescheduled by SW at 07/08/2024 18:16 Reason: miss Performed By: #### L MZ0026, BHB3762, WOK9933 ####BABATUN[place] [address] [address] Lymphocytes/100 WBC (Bld) 22.9 % Low 24.0-44.0 [facility] Comment on above: Order Comment: Esme bradley has been rescheduled by SW at 07/08/2024 18:16 Reason: miss Performed By: #### L UH3916, EEI8071, LCH8854 ####[place] [address] MCH (RBC) [Entitic mass] 32.7 pg Normal 26.0-34.0 [facility] Comment on above: Order Comment: Esme bradley has been rescheduled by SW at 07/08/2024 18:16 Reason: miss Performed By: #### L RL5669, AGL9033, UEH8132 ####[place] [address] MCHC (RBC) [Mass/Vol] 35.6 g/dL Normal 32.0-36.0 [facility] Comment on above: Order Comment: Esme bradley has been rescheduled by SW at 07/08/2024 18:16 Reason: miss Performed By: #### L MX8390, LSO6976, SVU3134 ####[place] [address] MCV (RBC) [Entitic vol] 91.8 fL Normal 80.0-100.0 [facility] Comment on above: Order Comment: Esme bradley has been rescheduled by at 07/08/2024 18:16 Reason: miss Performed By: #### L FJ0965, WIU2512, QFO4272 ####[place] [address] MDW 18.1 Normal 0.0-20.0 [facility] Comment on above: Order Comment: Esme bradley has been rescheduled by SW at 07/08/2024 18:16 Reason: miss Performed By: #### L MM3590, NFJ0230, MMH7696 ####[place] [address] Monocytes (Bld) [#/Vol] 0.8 10*3/uL Normal 0.0-1.4 [facility] Comment on above: Order Comment: Esme bradley has been rescheduled by at 07/08/2024 18:16 Reason: miss Performed By: #### L NO0603, JWC0067, EGL4518 ####BABATUN[place] [address] [place] [address] Monocytes/100 WBC (Bld) 11.0 % Normal 2.1-13.3 [facility] Comment on above: Order Comment: Esme bradley has been rescheduled by SW at 07/08/2024 18:16 Reason: miss Performed By: #### L SZ1749, PZU9981, VBQ5053 ####BABATUNDE [address] [address] Neutrophils, Abs. 4.2 10*3/uL Normal 1.5-8.5 [facility] Comment on above: Order Comment: Esme bradley has been rescheduled by SW at 07/08/2024 18:16 Reason: miss Performed By: #### L FS4958, NWF1814, ZDH7761 ####[place] [address] Neutrophils/100 WBC (Bld) 60.6 % Normal 35.0-66.0 [facility] Comment on above: Order Comment: Esme bradley has been rescheduled by SW at 07/08/2024 18:16 Reason: miss Performed By: #### L GS0916, NMA6660, PSE9847 ####[place] [address] Platelet Cnt 76 10*3/uL Low 150-450 [facility] Comment on above: Order Comment: Esme bradley has been rescheduled by SW at 07/08/2024 18:16 Reason: miss Performed By: #### L DP8750, DWI2681, KHJ5632 ####[place] [address] Platelet mean volume (Bld) [Entitic vol] 9.4 fL Normal 6.5-10.0 [facility] Comment on above: Order Comment: Esme bradley has been rescheduled by SW at 07/08/2024 18:16 Reason: miss Performed By: #### L JA3983, BLZ2062, ONH3818 ####BABATUNDE [address] [address] RBC (Bld) [#/Vol] 3.63 10*6/uL Low 4.00-5.20 [facility] Comment on above: Order Comment: Esme ctlelo has been rescheduled by SW at 07/08/2024 18:16 Reason: miss Performed By: #### L GR9849, ZUU6226, WMP2438 ####[facility] [address] [place] [address] WBC (Bld) [#/Vol] 6.9 10*3/uL Normal 4.5-11.0 [facility] Comment on above: Order Comment: Esme bradley has been rescheduled by SW at 07/08/2024 18:16 Reason: miss Performed By: #### L IJ9054, ZRT9185, UAN6221 ####[facility] [address] [place] [address] CBC w/Differentialon 024 Basophils (Bld) [#/Vol] 0.1 10*3/uL 0.0 - 0.1 10*3/uL [facility] Basophils/100 WBC (Bld) 1.1 % High 0.0 - 1.0 % [facility] Differential cell count method Nom (Bld) Auto [facility] Eosinophils (Bld) [#/Vol] 0.3 10*3/uL 0.0 - 0.5 10*3/uL [facility] Eosinophils/100 WBC (Bld) 4.4 % 0.3 - 5.0 % [facility] Erythrocyte distribution width (RBC) [Ratio] 17.8 % 10.7 - 18.7 % [facility] Hematocrit (Bld) [Volume fraction] 33.4 % 33.0 - 51.0 % [facility] Hemoglobin (Bld) [Mass/Vol] 11.9 g/dL Low 12.0 - 16.0 g/dL [facility] Interpretation and review of laboratory results Abnormal [facility] Lymphocytes (Bld) [#/Vol] 1.6 10*3/uL 1.1 - 5.0 10*3/uL [facility] Lymphocytes/100 WBC (Bld) 22.9 % Low 24.0 - 44.0 % [facility] MCH (RBC) [Entitic mass] 32.7 pg 26.0 - 34.0 pg [facility] MCHC (RBC) [Mass/Vol] 35.6 g/dL 32.0 - 36.0 g/dL [facility] MCV (RBC) [Entitic vol] 91.8 fL 80.0 - 100.0 fL [facility] Monocyte distribution width Auto (Bld) [Entitic vol] 18.1 0.0 - 20.0 [facility] Monocytes (Bld) [#/Vol] 0.8 10*3/uL 0.0 - 1.4 10*3/uL [facility] Monocytes/100 WBC (Bld) 11.0 % 2.1 - 13.3 % [facility] Neutrophils (Bld) [#/Vol] 4.2 10*3/uL 1.5 - 8.5 10*3/uL [facility] Neutrophils/100 WBC (Bld) 60.6 % 35.0 - 66.0 % [facility] Platelet mean volume (Bld) [Entitic vol] 9.4 fL 6.5 - 10.0 fL [facility] Platelets (Bld) [#/Vol] 76 10*3/uL Low 150 - 450 10*3/uL [facility] RBC (Bld) [#/Vol] 3.63 10*6/uL Low 4.00 - 5.2 0 10*6/uL [facility] WBC (Bld) [#/Vol] 6.9 10*3/uL 4.5 - 11.0 10*3/uL [facility] Collection has been rescheduled by SHELL at 07/08/2024 18:16 Reason: miss [facility] COMPREHENSIVE METABOLIC PANE [place] 07-08-2024 Albumin [Mass/Vol] 3.0 g/dL Low 3.2-5.0 [facility] Comment on above: Order Comment: Colle ction has been rescheduled by SHELL at 07/08/2024 18:16 Reason: miss Performed By: #### L XC5565, TQG9398, NYB6886 ####[facility] [address] [place], [place] [address] Albumin/Globulin [Mass ratio] 0.9 {ratio} Normal [facility] Comment on above: Order Comment: Esme ctlelo has been rescheduled by SW at 07/08/2024 18:16 Reason: miss Performed By: #### L JQ2292, GDZ0053, NCO4338 ####[place] [address] ALP [Catalytic activity/Vol] 108 U/L Normal 42-121 [facility] Comment on above: Order Comment: Esme ction has been rescheduled by SW at 07/08/2024 18:16 Reason: miss Performed By: #### L GX2526, ZIX1217, GTQ7535 ####[place] [address] ALT [Catalytic activity/Vol] 53 U/L Normal 10-60 [facility] Comment on above: Order Comment: Esme ction has been rescheduled by SW at 07/08/2024 18:16 Reason: miss Performed By: #### L BM5933, KOX9380, EKY9944 ####[place] [address] Anion gap [Moles/Vol] 3 mmol/L Normal [facility] Comment on above: Order Comment: Esme ctlelo has been rescheduled by SW at 07/08/2024 18:16 Reason: miss Performed By: #### L BQ2752, BQL1391, BTR6509 ####[place] [address] AST [Catalytic activity/Vol] 78 U/L High 10-42 [facility] Comment on above: Order Comment: Esme ction has been rescheduled by SW at 07/08/2024 18:16 Reason: miss Performed By: #### L UR3403, ZJO8799, HTI4092 ####[place] [address] B/C 16 Normal 10-20 [facility] Comment on above: Order Comment: Esme ction has been rescheduled by SW at 07/08/2024 18:16 Reason: miss Performed By: #### L CX9172, GWR4999, QHV0578 ####[place] [address] Bilirubin.direct [Mass/Vol] 1.7 mg/dL High 0.2-1.0 [facility] Comment on above: Order Comment: Esme bradley has been rescheduled by SW at 07/08/2024 18:16 Reason: miss Performed By: #### L GF4097, ZDY4749, LGK0622 ####[place] [address] Calcium [Mass/Vol] 9.3 mg/dL Normal 8.5-10.5 [facility] Comment on above: Order Comment: Esme bradley has been rescheduled by SW at 07/08/2024 18:16 Reason: miss Performed By: #### L XN6630, UXT7440, ZBL1270 ####[place] [address] Chloride [Moles/Vol] 110 mmol/L Normal 101-111 [facility] Comment on above: Order Comment: Esme ctlelo has been rescheduled by at 07/08/2024 18:16 Reason: miss Performed By: #### L LH6944, UCP6327, HLY4007 ####[place] [address] CO2 [Moles/Vol] 24 mmol/L Normal 21-31 [facility] Comment on above: Order Comment: Esme bradley has been rescheduled by SW at 07/08/2024 18:16 Reason: miss Performed By: #### L WO1470, MAW5480, OUT7668 ####[place] [address] Creatinine [Mass/Vol] 0.8 mg/dL Normal 0.4-1.0 [facility] Comment on above: Order Comment: Esme ctlelo has been rescheduled by SW at 07/08/2024 18:16 Reason: miss Performed By: #### L GH2931, VZU9457, ITC0320 ####[place] [address] GFR/1.73 sq M.predicted MDRD (S/P/Bld) [Vol rate/Area] 76 mL/min/{1.73_m2} Normal [facility] Comment on above: Order Comment: Esme bradley has been rescheduled by at 07/08/2024 [...] mL/min or less Performed By: #### L IV5945, VKS1403, CCU0338 ####BABAT[place] [address] [address] Glucose [Mass/Vol] 94 mg/dL Normal 70-110 [facility] Comment on above: Order Comment: Esme bradley has been rescheduled by at 07/08/2024 18:16 Reason: miss Performed By: #### L TL4438, XIO6557, PKR1949 ####BABAT[place] [address] [address] Osmolality [Osmolality] 274 mosm/kg Normal 266-309 [facility] Comment on above: Order Comment: Esme bradley has been rescheduled by at 07/08/2024 18:16 Reason: miss Performed By: #### L NE4964, ZIG2910, UAV7292 ####[place] [address] [place] [address] Potassium [Moles/Vol] 4.2 mmol/L Normal 3.6-5.0 [facility] Comment on above: Order Comment: Esme bradley has been rescheduled by at 07/08/2024 18:16 Reason: miss Performed By: #### L TJ4426, VJC1689, WFL5296 ####[place] [address] [place] [address] Protein [Mass/Vol] 6.4 g/dL Normal 6.1-7.8 [facility] Comment on above: Order Comment: Esme bradley has been rescheduled by SW at 07/08/2024 18:16 Reason: miss Performed By: #### L OL1187, PBN4094, HNI1358 ####[facility] [address] [place] [address] Sodium [Moles/Vol] 137 mmol/L Normal 135-145 [facility] Comment on above: Order Comment: Esme bradley has been rescheduled by SW at 07/08/2024 18:16 Reason: miss Performed By: #### L XH8161, OEF5699, GJY9454 ####[facility] [address] [place] [address] Urea nitrogen [Mass/Vol] 13 mg/dL Normal 2-32 [facility] Comment on above: Order Comment: Esme bradley has been rescheduled by SW at 07/08/2024 18:16 Reason: miss Performed By: #### L IL5012, TDM1690, PTW3762 ####[facility] [place] [address] [place] [address] Comprehensive Metabolic Pane [place] 07-08-2024 Albumin [Mass/Vol] 3.0 g/dL Low 3.2 - 5.0 g/dL [facility] Albumin/Globulin [Mass ratio] 0.9 {ratio} [facility] ALP [Catalytic activity/Vol] 108 U/L 42 - 121 [iU]/L [facility] ALT [Catalytic activity/Vol] 53 U/L 10 - 60 [iU]/L [facility] Anion gap [Moles/Vol] 3 mmol/L [facility] AST [Catalytic activity/Vol] 78 U/L High 10 - 42 [iU]/L [facility] Bilirubin [Mass/Vol] 1.7 mg/dL High 0.2 - 1 .0 mg/dL [facility] Calcium [Mass/Vol] 9.3 mg/dL 8.5 - 10. 5 mg/dL [facility] Chloride [Moles/Vol] 110 mmol/L 101 - 1 11 mmol/L [facility] CO2 [Moles/Vol] 24 mmol/L 21 - 31 mmol/L [facility] Creatinine [Mass/Vol] 0.8 mg/dL 0.4 - 1.0 mg/dL [facility] GFR/1.73 sq M.predicted MDRD (S/P/Bld) [Vol rate/Area] 76 mL/min/{1.73_m2} [facility] Comment on above: *The estimated Glome rular [...] [Mass/Vol] 94 mg/dL 70 - 110 mg/dL [facility] Interpretation and review of laboratory results Abnormal [facility] Osmolality Calc [Osmolality] 274 266 - 309 [facility] Potassium [Moles/Vol] 4.2 mmol/L 3.6 - 5.0 mmol/L [facility] Protein [Mass/Vol] 6.4 g/dL 6.1 - 7.8 g/dL [facility] Sodium [Moles/Vol] 137 mmol/L 135 - 145 mmol/L [facility] Urea nitrogen [Mass/Vol] 13 mg/dL 2 - 32 mg/dL [facility] Urea nitrogen/Creatinine [Mass ratio] 16 mg/mg 10 - [facility] Collection has been rescheduled by SHELL at 07/08/2024 18:16 Reason: miss [facility] PT AND APTTon 07-08-2024 aPTT Coag (Bld) [Time] 37.3 s High 25.5-35.9 [facility] Comment on above: Order Comment: Colle ction has been rescheduled by SHELL at 07/08/2024 18:16 Reason: miss Performed By: #### L ZT8821, OLM1629, AAB0648 ####[facility] [address] [place] [address] INR Coag (PPP) [Relative time] 1.4 {INR} High 0.9-1.1 [facility] Comment on above: LEVEL OF THERAPY IND ICATIONS TARGET INR RANGE STANDARD DOSE TREATMENT OF VENOUS THROMBOSIS 2.0-3.0 TREATMENT OF PULMONARY EMBOLUS PROPHYLAXIS AGAINST VENOUS THROMBOSIS BY SYSTEMIC EMBOLIZATION . HIGH DOSE HIGH RISK PATIENTS WITH 2.5-3.5 MECHANICAL HEART VALVES Order Comment: Esme bradley has been rescheduled by at 07/08/2024 18:16 Reason: miss Result Comment: MITCHE L OF THERAPY INDICATIONS TARGET INR RANGESTANDARD DOSE TREATMENT OF VENOUS THROMBOSIS 2.0-3.0 TREATMENT OF PULMONARY EMBOLUS PROPHYLAXIS AGAINST VENOUS THROMBOSIS BY SYSTEMIC EMBOLIZATION .HIGH DOSE HIGH RISK PATIENTS WITH 2.5-3.5 MECHANICAL HEART VALVES Performed By: #### L HV6909, LNB3691, FPO9807 ####[facility] [address] [place] [address] PT Coag (PPP) [Time] 16.4 s High 10.1-13.7 [facility] Comment on above: Order Comment: Esme bradley has been rescheduled by at 07/08/2024 18:16 Reason: miss Performed By: #### L VT0760, RCM7494, ANI8471 ####[facility] [address] [place] [address] PT/APTT/INRon 07-08-2024 aPTT Coag (PPP) [Time] 37.3 s High 25.5 - 35.9 s [facility] Interpretation and review of laboratory results Abnormal [facility] Collection has been rescheduled by at 07/08/2024 18:16 Reason: miss [facility] TRICHOMONAS VAGINALIS NAATon 07-08-2024 T. vaginalis DNA [facility] Normal Negative for Trichomonas vaginalis by amplification [facility] Comment on above: Order Comment: Speci men Type: MICROBIAL ISOLATE Ordering Facility: [facility] Address: [address] [facility], [place] [id number] Performed By: #### T RVAMP, [address]-3 #### [facility] CLIA [id number] [address] [place] [address] OF [place] CBC w/ Differentialon 2023 Basophil Abs. 0.0 10*3/uL Normal 0.0-0.1 [facility] Comment on above: Performed By: #### L PD6562, AIT2798, GKV3248 ####BABATUNDE [address] [address] Basophils/100 WBC (Bld) 0.5 % Normal 0.0-1.0 [facility] Comment on above: Performed By: #### L CM5405, VYU8078, OUV7491 ####[place] [address] Differential type Auto Normal [facility] Comment on above: Performed By: #### L WO8048, WFK1287, TFU0053 ####[place] [address] Eosinophils (Bld) [#/Vol] 0.4 10*3/uL Normal 0.0-0.5 [facility] Comment on above: Performed By: #### L DK1603, RWH1374, RHF7980 ####[address] [address] Eosinophils/100 WBC (Bld) 5.9 % High 0.3-5.0 [facility] Comment on above: Performed By: #### L EI0469, DET8013, GSW4950 ####[place] [address] Erythrocyte distribution width (RBC) [Ratio] 17.6 % Normal 10.7-18.7 [facility] Comment on above: Performed By: #### L HX7344, JAM7586, ZOV4667 ####[place] [address] Hematocrit (Bld) [Volume fraction] 35.4 % Normal 33.0-51.0 [facility] Comment on above: Performed By: #### L JC9954, GMD1913, ONM6915 ####[place] [address] Hemoglobin (Bld) [Mass/Vol] 11.4 g/dL Low 12.0-16.0 [facility] Comment on above: Performed By: #### L RG4266, QUM6422, MEY9996 ####[place] [address] Lymphocytes (Bld) [#/Vol] 1.2 10*3/uL Normal 1.1-5.0 [facility] Comment on above: Performed By: #### L CU7009, ZPX8000, YVN2237 ####[place] [address] Lymphocytes/100 WBC (Bld) 17.8 % Low 24.0-44.0 [facility] Comment on above: Performed By: #### L TB6717, RAL4133, QGH5762 ####[place] [address] MCH (RBC) [Entitic mass] 30.6 pg Normal 26.0-34.0 [facility] Comment on above: Performed By: #### L VU7283, BRA1148, FCZ0831 ####[place] [address] MCHC (RBC) [Mass/Vol] 32.1 g/dL Normal 32.0-36.0 [facility] Comment on above: Performed By: #### L RR7796, UPU4535, ZKR7489 ####[place] [address] MCV (RBC) [Entitic vol] 95.5 fL Normal 80.0-100.0 [facility] Comment on above: Performed By: #### L RV9498, FAJ8373, ZDB6467 ####[place] [address] Monocytes (Bld) [#/Vol] 0.7 10*3/uL Normal 0.0-1.4 [facility] Comment on above: Performed By: #### L WP9390, AXK5663, HDJ0886 ####[place] [address] Monocytes/100 WBC (Bld) 10.9 % Normal 2.1-13.3 [facility] Comment on above: Performed By: #### L DQ9215, HSG1178, SIB9986 ####[address] [address] Neutrophils, Abs. 4.4 10*3/uL Normal 1.5-8.5 [facility] Comment on above: Performed By: #### L MC9282, MNY4522, ZNP4758 ####[place] [address] Neutrophils/100 WBC (Bld) 64.9 % Normal 35.0-66.0 [facility] Comment on above: Performed By: #### L RK9220, JUU8203, KBF9599 ####[place] [address] Platelet Cnt 71 10*3/uL Low 150-450 [facility] Comment on above: Performed By: #### L GR5980, LHW5609, KVZ9497 ####[place] [address] Platelet mean volume (Bld) [Entitic vol] 9.4 fL Normal 6.5-10.0 [facility] Comment on above: Performed By: #### L BF0232, UML4252, VLZ7417 ####[place] [address] RBC (Bld) [#/Vol] 3.71 10*6/uL Low 4.00-5.20 [facility] Comment on above: Performed By: #### L EE4102, SRY6243, DXV1194 ####[address] [address] WBC (Bld) [#/Vol] 6.8 10*3/uL Normal 4.5-11.0 [facility] Comment on above: Performed By: #### L HN3849, PHC0744, SZH0536 ####[place] [address] CBC w/Differentialon 10-10-2 024 Basophils (Bld) [#/Vol] 0.0 10*3/uL 0.0 - 0.1 10*3/uL [facility] Basophils/100 WBC (Bld) 0.5 % 0.0 - 1.0 % [facility] Differential cell count method Nom (Bld) Auto [facility] Eosinophils (Bld) [#/Vol] 0.4 10*3/uL 0.0 - 0.5 10*3/uL [facility] Eosinophils/100 WBC (Bld) 5.9 % High 0.3 - 5.0 % [facility] Erythrocyte distribution width (RBC) [Ratio] 17.6 % 10.7 - 18.7 % [facility] Hematocrit (Bld) [Volume fraction] 35.4 % 33.0 - 51.0 % [facility] Hemoglobin (Bld) [Mass/Vol] 11.4 g/dL Low 12.0 - 16.0 g/dL [facility] Interpretation and review of laboratory results Abnormal [facility] Lymphocytes (Bld) [#/Vol] 1.2 10*3/uL 1.1 - 5.0 10*3/uL [facility] Lymphocytes/100 WBC (Bld) 17.8 % Low 24.0 - 44.0 % [facility] MCH (RBC) [Entitic mass] 30.6 pg 26.0 - 34.0 pg [facility] MCHC (RBC) [Mass/Vol] 32.1 g/dL 32.0 - 36.0 g/dL [facility] MCV (RBC) [Entitic vol] 95.5 fL 80.0 - 100.0 fL [facility] Monocytes (Bld) [#/Vol] 0.7 10*3/uL 0.0 - 1.4 10*3/uL [facility] Monocytes/100 WBC (Bld) 10.9 % 2.1 - 13.3 % [facility] Neutrophils (Bld) [#/Vol] 4.4 10*3/uL 1.5 - 8.5 10*3/uL [facility] Neutrophils/100 WBC (Bld) 64.9 % 35.0 - 66.0 % [facility] Platelet mean volume (Bld) [Entitic vol] 9.4 fL 6.5 - 10.0 fL [facility] Platelets (Bld) [#/Vol] 71 10*3/uL Low 150 - 450 10*3/uL [facility] RBC (Bld) [#/Vol] 3.71 10*6/uL Low 4.00 - 5.2 0 10*6/uL [facility] WBC (Bld) [#/Vol] 6.8 10*3/uL 4.5 - 11.0 10*3/uL [facility] COMPREHENSIVE METABOLIC PANE [place] 07-05-2024 Albumin [Mass/Vol] 3.1 g/dL Low 3.2-5.0 [facility] Comment on above: Performed By: #### L SO6407, ZWA7180, PMC8115 ####[place] [address] Albumin/Globulin [Mass ratio] 0.9 {ratio} Normal [facility] Comment on above: Performed By: #### L HN5082, NIH9683, FYU1390 ####[place] [address] ALP [Catalytic activity/Vol] 112 U/L Normal 42-121 [facility] Comment on above: Performed By: #### L DG5768, UIS6668, POH9324 ####[place] [address] ALT [Catalytic activity/Vol] 51 U/L Normal 10-60 [facility] Comment on above: Performed By: #### L PM5953, LEV3042, DBD0659 ####[place] [address] Anion gap [Moles/Vol] 1 mmol/L Normal [facility] Comment on above: Performed By: #### L SW1182, LTO9762, YOR7957 ####[place] [address] AST [Catalytic activity/Vol] 78 U/L High 10-42 [facility] Comment on above: Performed By: #### L XQ8469, COX7737, SKH1427 ####[place] [address] B/C 16 Normal 10-20 [facility] Comment on above: Performed By: #### L JK9442, VIZ2746, UQX2995 ####[place] [address] Bilirubin.direct [Mass/Vol] 1.7 mg/dL High 0.2-1.0 [facility] Comment on above: Performed By: #### L JP3643, LLW3721, JLP2749 ####[place] [address] Calcium [Mass/Vol] 9.1 mg/dL Normal 8.5-10.5 [facility] Comment on above: Performed By: #### L OY8774, PTZ0387, LGB6909 ####[place] [address] Chloride [Moles/Vol] 112 mmol/L High 101-111 [facility] Comment on above: Performed By: #### L GG6017, VJP7119, KTD8653 ####[place] [address] CO2 [Moles/Vol] 24 mmol/L Normal 21-31 [facility] Comment on above: Performed By: #### L FV7499, EWQ1548, FOC1367 ####[place] [address] Creatinine [Mass/Vol] 0.8 mg/dL Normal 0.4-1.0 Kin [facility] Comment on above: Performed By: #### L EQ0525, BSQ6021, VYG4602 ####[place] [address] GFR/1.73 sq M.predicted MDRD (S/P/Bld) [Vol rate/Area] 76 mL/min/{1.73_m2} Normal [facility] Comment on above: Result Comment: *The estimated Glomerular Filtration Rate(EGFR) may not be accurate for children under the age of 18 yrs. To estimate the GFR for -Americans multiply the result provided by 1.21.Stage 1 90 mL/min or greaterStage 2 60-89 mL/minStage 3 30-59 mL/minStage 4 15-29 mL/minStage 5 14 mL/min or less Performed By: #### L AQ8074, KGN1934, FEV8016 ####[place]AT[place] [address] [address] Glucose [Mass/Vol] 99 mg/dL Normal 70-110 [facility] Comment on above: Performed By: #### L TR6574, JLZ5528, YKP0775 ####BABATUNDE [address] [address] Osmolality [Osmolality] 274 mosm/kg Normal 266-309 [facility] Comment on above: Performed By: #### L ZF3105, PFQ4074, QDP8738 ####BABAT[place] [address] [address] Potassium [Moles/Vol] 4.2 mmol/L Normal 3.6-5.0 [facility] Comment on above: Performed By: #### L OO0330, CAF5868, JJW5056 ####BABAT[place] [address] [address] Protein [Mass/Vol] 6.6 g/dL Normal 6.1-7.8 [facility] Comment on above: Performed By: #### L SY4869, OKZ9785, UFJ5144 ####BABATUNDE [address] [address] Sodium [Moles/Vol] 137 mmol/L Normal 135-145 [facility] Comment on above: Performed By: #### L ZZ0933, XFY0478, BOS7348 ####BABATUN[place] [address] [address] Urea nitrogen [Mass/Vol] 13 mg/dL Normal 2-32 [facility] Comment on above: Performed By: #### L RI4846, ZNF0072, PYV7002 ####[place] [address] [address] [place] [address] Comprehensive Metabolic Pane merritt 07-05-2024 Albumin [Mass/Vol] 3.1 g/dL Low 3.2 - 5.0 g/dL [facility] Albumin/Globulin [Mass ratio] 0.9 {ratio} [facility] ALP [Catalytic activity/Vol] 112 U/L 42 - 121 [iU]/L [facility] ALT [Catalytic activity/Vol] 51 U/L 10 - 60 [iU]/L [facility] Anion gap [Moles/Vol] 1 mmol/L Kin [facility] AST [Catalytic activity/Vol] 78 U/L High 10 - 42 [iU]/L [facility] Bilirubin [Mass/Vol] 1.7 mg/dL High 0.2 - 1 .0 mg/dL [facility] Calcium [Mass/Vol] 9.1 mg/dL 8.5 - 10. 5 mg/dL [facility] Chloride [Moles/Vol] 112 mmol/L High 101 - 1 11 mmol/L [facility] CO2 [Moles/Vol] 24 mmol/L 21 - 31 mmol/L [facility] Creatinine [Mass/Vol] 0.8 mg/dL 0.4 - 1.0 mg/dL [facility] GFR/1.73 sq M.predicted MDRD (S/P/Bld) [Vol rate/Area] 76 mL/min/{1.73_m2} [facility] Comment on above: *The estimated Glome rular [...] [Mass/Vol] 99 mg/dL 70 - 110 mg/dL [facility] Interpretation and review of laboratory results Abnormal [facility] Osmolality Calc [Osmolality] 274 266 - 309 [facility] Potassium [Moles/Vol] 4.2 mmol/L 3.6 - 5.0 mmol/L [facility] Protein [Mass/Vol] 6.6 g/dL 6.1 - 7.8 g/dL [facility] Sodium [Moles/Vol] 137 mmol/L 135 - 145 mmol/L [facility] Urea nitrogen [Mass/Vol] 13 mg/dL 2 - 32 mg/dL [facility] Urea nitrogen/Creatinine [Mass ratio] 16 mg/mg [facility] FLUID CELL COUNTon 4 Basophils/100 WBC (Bld) 0 % Normal [facility] Comment on above: Performed By: #### L NK8033 ####[place] [address] Eosinophils/100 WBC (Bld) 0 % Normal [facility] Comment on above: Performed By: #### L KA2763 ####[place] [address] Lymphocytes/100 WBC (Bld) 59 % Normal [facility] Comment on above: Performed By: #### L ZM3990 ####[place] [address] MACROPHAGES 25 % Normal [facility] Comment on above: Performed By: #### L WM6540 ####[place] [address] MESOTHELIAL 13 % Normal [facility] Comment on above: Performed By: #### L SM9415 ####[place] [address] Neutrophils/100 WBC (Bld) 3 % Normal [facility] Comment on above: Performed By: #### L CB1511 ####[place] [address] PATHOLOGY REVIEW see below Normal [facility] Comment on above: Result Comment: REVI EWED BY DR. Silvia AGUDELO: Agree with differential. See report [id number]. 07/05/2024 9:50 AM Performed By: #### L DE5911 ####[place] [address] PLASMA CELLS 0 % Normal [facility] Comment on above: Performed By: #### L XZ2034 ####[place] [address] OTHER 0 Normal [facility] Comment on above: Performed By: #### L SO0057 ####[place] [address] HEPATITIS PANEL ACUTEon 06-26 HEPATITIS C AB Reactive Abnormal Negative [facility] Comment on above: Order Comment: [id number] Result Comment: Conf irmatory testing is recommended and is available at [facility](order [id number]). Performed By: #### L GT9006 ####[place] [address] HEP B CORE AB IGM Negative Normal Negative [facility] Comment on above: Order Comment: [id number] Performed By: #### L ZC9215 ####[place] [address] HEPATITIS A AB IGM Negative Normal Negative [facility] Comment on above: Order Comment: [id number] Performed By: #### L ZE3494 ####[place] [address] HEP B SURFACE AG Negative Normal Negative [facility] Comment on above: Order Comment: [id number] Performed By: #### L ZM8358 ####[place] [address] Hepatitis Panelon 07-05-2024 HAV IgM IA Ql Negative Negative [facility] HBV core IgM IA Qn Negative Negative [facility] HBV surface Ag IA Ql Negative Negative [facility] HCV Ab IA Ql Reactive Abnormal Negative [facility] Comment on above: Confirmatory testing is recommended and is available at [facility] (order [id number]). Interpretation and review of laboratory results Abnormal [facility] [id number] [facility] PT AND APTTon 07-05-2024 aPTT Coag (Bld) [Time] 36.7 s High 25.5-35.9 [facility] Comment on above: Performed By: #### L IB3272, MEJ4977, LEE6442 ####[facility] [address] [place] [address] INR Coag (PPP) [Relative time] 1.5 {INR} High 0.9-1.1 [facility] Comment on above: LEVEL OF THERAPY IND [...] MECHANICAL HEART VALVES Performed By: #### L AN7728, FVC5862, ODQ0082 ####[facility] [address] [place] [address] PT Coag (PPP) [Time] 18.0 s High 10.1-13.7 [facility] Comment on above: Performed By: #### L TO0306, PNW2628, TLR5271 ####[facility] [address] [place] [address] PT/APTT/INRon 07-05-2024 aPTT Coag (PPP) [Time] 36.7 s High 25.5 - 35.9 s [facility] Interpretation and review of laboratory results Abnormal [facility] Albumin, Body Fluidon 2023 Albumin, Body Fluid 437 mg/dL Normal [facility] Comment on above: Order Comment: ascit es Result Comment: INTE RPRETIVE INFORMATION: Albumin, Body FluidA reference interval has not been established for body fluidspecimens.This test was developed and its performance characteristicsdetermined by [facility]. It has not been cleared orapproved by the U.S. Food and Drug Administration. This test wasperformed in a CLIA-certified laboratory and is intended forclinical purposes.Performed By: [facility] [place] [id number] Director: Elvin Diaz MD, PhDCLIA Number: [id number] Performed By: #### L XX3424, STX2499, DQS3575, PAT8844, IOJ7945 ####[place] [address] Source: Ascites Normal [facility] Comment on above: Order Comment: ascit es Result Comment: Coni ected result;Previously reported as [facility], by V/AUT at 14:08 on07/02/24 Performed By: #### L OE1127, RLG8449, JBJ6881, RSL4550, YHR5169 ####[place] [address] CBC w/ Differentialon 2023 Basophil Abs. 0.0 10*3/uL Normal 0.0-0.1 [facility] Comment on above: Performed By: #### L HK3680, UBA3144, VKS5931, EBD1498 ####[place] [address] Basophils/100 WBC (Bld) 0.4 % Normal 0.0-1.0 [facility] Comment on above: Performed By: #### L HL7378, ELJ9629, CHN6461, TZG5243 ####[place] [address] Differential type Auto Normal [facility] Comment on above: Performed By: #### L LM7011, TZX0281, JVO2309, LXW9956 ####[place] [address] Eosinophils (Bld) [#/Vol] 0.3 10*3/uL Normal 0.0-0.5 [facility] Comment on above: Performed By: #### L AZ6774, VEH0373, QEE9771, SJI2721 ####[place] [address] Eosinophils/100 WBC (Bld) 5.2 % High 0.3-5.0 [facility] Comment on above: Performed By: #### L TH5661, GNH9533, VJK8112, CYD7742 ####[place] [address] Erythrocyte distribution width (RBC) [Ratio] 16.6 % Normal 10.7-18.7 [facility] Comment on above: Performed By: #### L LA6954, TNM7800, UBU2091, OSC4707 ####[place] [address] Hematocrit (Bld) [Volume fraction] 34.1 % Normal 33.0-51.0 [facility] Comment on above: Performed By: #### L AT9234, DMR5172, FRT0042, VCP2564 ####[place] [address] Hemoglobin (Bld) [Mass/Vol] 11.1 g/dL Low 12.0-16.0 [facility] Comment on above: Performed By: #### L CN7156, FWI5457, ZVI4196, HBD5925 ####[place] [address] Lymphocytes (Bld) [#/Vol] 0.8 10*3/uL Low 1.1-5.0 [facility] Comment on above: Performed By: #### L UW3015, NEJ0179, SOA1596, VWS8354 ####[place] [address] Lymphocytes/100 WBC (Bld) 14.0 % Low 24.0-44.0 [facility] Comment on above: Performed By: #### L IZ6990, BTU0543, FWC6542, JEA1596 ####[place] [address] MCH (RBC) [Entitic mass] 31.0 pg Normal 26.0-34.0 [facility] Comment on above: Performed By: #### L GP6698, ONF8262, VYG3637, CQF7230 ####[place] [address] MCHC (RBC) [Mass/Vol] 32.5 g/dL Normal 32.0-36.0 Kin [facility] Comment on above: Performed By: #### L OK8962, ITJ0491, CVQ1872, VBF2317 ####[place] [address] MCV (RBC) [Entitic vol] 95.2 fL Normal 80.0-100.0 [facility] Comment on above: Performed By: #### L OG6660, MIW5136, LUM9576, ZSS2641 ####[place] [address] Monocytes (Bld) [#/Vol] 0.5 10*3/uL Normal 0.0-1.4 [facility] Comment on above: Performed By: #### L QP8303, LKH2683, PNU4892, QPP1842 ####[place] [address] Monocytes/100 WBC (Bld) 8.0 % Normal 2.1-13.3 [facility] Comment on above: Performed By: #### L HK9856, NPQ3866, LDO6004, TJX5702 ####[place] [address] Neutrophils, Abs. 4.2 10*3/uL Normal 1.5-8.5 [facility] Comment on above: Performed By: #### L YV4540, DXJ7568, XHT2302, MRM1081 ####[place] [address] Neutrophils/100 WBC (Bld) 72.4 % High 35.0-66.0 [facility] Comment on above: Performed By: #### L ZP9031, SNX0074, KVQ3443, HWO4562 ####[place] [address] Platelet Cnt 64 10*3/uL Low 150-450 [facility] Comment on above: Performed By: #### L MB4091, NYB1324, HTK6417, EQQ9060 ####[place] [address] Platelet mean volume (Bld) [Entitic vol] 9.2 fL Normal 6.5-10.0 [facility] Comment on above: Performed By: #### L ZH1979, FMQ4770, VLO3523, MLA3179 ####[facility] [address] [place] [address] RBC (Bld) [#/Vol] 3.58 10*6/uL Low 4.00-5.20 [facility] Comment on above: Performed By: #### L XA7115, DAT0844, IDB8427, WDB8231 ####[facility] [address] [place] [address] WBC (Bld) [#/Vol] 5.9 10*3/uL Normal 4.5-11.0 [facility] Comment on above: Performed By: #### L BP9319, CHS3045, ITH5037, DWK1333 ####[facility] [address] [place] [address] CBC w/Differentialon 024 Basophils (Bld) [#/Vol] 0.0 10*3/uL 0.0 - 0.1 10*3/uL [facility] Basophils/100 WBC (Bld) 0.4 % 0.0 - 1.0 % [facility] Differential cell count method Nom (Bld) Auto [facility] Eosinophils (Bld) [#/Vol] 0.3 10*3/uL 0.0 - 0.5 10*3/uL [facility] Eosinophils/100 WBC (Bld) 5.2 % High 0.3 - 5.0 % [facility] Erythrocyte distribution width (RBC) [Ratio] 16.6 % 10.7 - 18.7 % [facility] Hematocrit (Bld) [Volume fraction] 34.1 % 33.0 - 51.0 % [facility] Hemoglobin (Bld) [Mass/Vol] 11.1 g/dL Low 12.0 - 16.0 g/dL [facility] Interpretation and review of laboratory results Abnormal [facility] Lymphocytes (Bld) [#/Vol] 0.8 10*3/uL Low 1.1 - 5.0 10*3/uL [facility] Lymphocytes/100 WBC (Bld) 14.0 % Low 24.0 - 44.0 % [facility] MCH (RBC) [Entitic mass] 31.0 pg 26.0 - 34.0 pg [facility] MCHC (RBC) [Mass/Vol] 32.5 g/dL 32.0 - 36.0 g/dL [facility] MCV (RBC) [Entitic vol] 95.2 fL 80.0 - 100.0 fL [facility] Monocytes (Bld) [#/Vol] 0.5 10*3/uL 0.0 - 1.4 10*3/uL [facility] Monocytes/100 WBC (Bld) 8.0 % 2.1 - 13.3 % [facility] Neutrophils (Bld) [#/Vol] 4.2 10*3/uL 1.5 - 8.5 10*3/uL [facility] Neutrophils/100 WBC (Bld) 72.4 % High 35.0 - 66.0 % [facility] Platelet mean volume (Bld) [Entitic vol] 9.2 fL 6.5 - 10.0 fL [facility] Platelets (Bld) [#/Vol] 64 10*3/uL Low 150 - 450 10*3/uL [facility] RBC (Bld) [#/Vol] 3.58 10*6/uL Low 4.00 - 5.2 0 10*6/uL [facility] WBC (Bld) [#/Vol] 5.9 10*3/uL 4.5 - 11.0 10*3/uL [facility] COMPREHENSIVE METABOLIC PANE [place] 07-02-2024 Albumin [Mass/Vol] 3.0 g/dL Low 3.2-5.0 [facility] Comment on above: Performed By: #### L MS6605, ZLS1242, SNG1232, TGZ9522 ####[facility] [address] [place] [address] Albumin/Globulin [Mass ratio] 0.8 {ratio} Normal [facility] Comment on above: Performed By: #### L MU4927, EYX3140, LHI6189, DBF8553 ####[place] [address] ALP [Catalytic activity/Vol] 107 U/L Normal 42-121 [facility] Comment on above: Performed By: #### L MA6135, NRF3269, VQM5032, UTS0763 ####[place] [address] ALT [Catalytic activity/Vol] 54 U/L Normal 10-60 [facility] Comment on above: Performed By: #### L SP8679, OYT3634, ZBB9336, RPI2225 ####[place] [address] Anion gap [Moles/Vol] 2 mmol/L Normal Kin [facility] Comment on above: Performed By: #### L OK1210, RJK6294, TBN4158, IUK8164 ####[place] [address] AST [Catalytic activity/Vol] 96 U/L High 10-42 [facility] Comment on above: Performed By: #### L FO4178, NER0198, DLR4715, ASG6248 ####[place] [address] B/C 14 Normal 10-20 [facility] Comment on above: Performed By: #### L TN4058, QML0787, VLH1141, COV6114 ####[place] [address] Bilirubin.direct [Mass/Vol] 1.7 mg/dL High 0.2-1.0 [facility] Comment on above: Performed By: #### L CZ9059, NSK0762, ELU5909, JHO5041 ####[place] [address] Calcium [Mass/Vol] 8.6 mg/dL Normal 8.5-10.5 [facility] Comment on above: Performed By: #### L CP4545, WCP7141, YXW2850, NZP3767 ####[facility] [address] [place] [address] Chloride [Moles/Vol] 112 mmol/L High 101-111 [facility] Comment on above: Performed By: #### L JI8029, CNS9241, MBY6650, AMS4109 ####[facility] [address] [place] [address] CO2 [Moles/Vol] 25 mmol/L Normal 21-31 [facility] Comment on above: Performed By: #### L IQ7142, RVL0630, QSI1820, NDZ5670 ####[facility] [address] [place] [address] Creatinine [Mass/Vol] 0.8 mg/dL Normal 0.4-1.0 [facility] Comment on above: Performed By: #### L EB9563, OZR1012, UPK9980, FET7489 ####[place] [address] GFR/1.73 sq M.predicted MDRD (S/P/Bld) [Vol rate/Area] 76 mL/min/{1.73_m2} Normal [facility] Comment on above: Result Comment: *The estimated Glomerular Filtration Rate(EGFR) may not be accurate for children under the age of 18 yrs. To estimate the GFR for -Americans multiply the result provided by 1.21.Stage 1 90 mL/min or greaterStage 2 60-89 mL/minStage 3 30-59 mL/minStage 4 15-29 mL/minStage 5 14 mL/min or less Performed By: #### L UP4895, KTM5423, AYP3087, XXF7908 ####[facility] [address] [place] [address] Glucose [Mass/Vol] 121 mg/dL High 70-110 [facility] Comment on above: Performed By: #### L OJ4986, PWO4866, ATV4630, HPE8037 ####[facility] [address] [place] [address] Osmolality [Osmolality] 278 mosm/kg Normal 266-309 [facility] Comment on above: Performed By: #### L HB5731, XCK7250, CPE4274, FOR9371 ####[facility] [address] [place] [address] Potassium [Moles/Vol] 3.9 mmol/L Normal 3.6-5.0 [facility] Comment on above: Performed By: #### L SL8328, UMZ1919, YZS1822, VFX2456 ####[address] [address] Protein [Mass/Vol] 6.7 g/dL Normal 6.1-7.8 [facility] Comment on above: Performed By: #### L UB3210, BIW8538, DLG2592, BJF8442 ####[address] [address] Sodium [Moles/Vol] 139 mmol/L Normal 135-145 [facility] Comment on above: Performed By: #### L KP5680, RYW0775, IHW8114, LDE7941 ####[place] [address] Urea nitrogen [Mass/Vol] 11 mg/dL Normal 2-32 [facility] Comment on above: Performed By: #### L WF9708, ZHS2108, HOF3602, HGK4041 ####[place] [address] Comprehensive Metabolic Pane merritt 07-02-2024 Albumin [Mass/Vol] 3.0 g/dL Low 3.2 - 5.0 g/dL [facility] Albumin/Globulin [Mass ratio] 0.8 {ratio} [facility] ALP [Catalytic activity/Vol] 107 U/L 42 - 121 [iU]/L [facility] ALT [Catalytic activity/Vol] 54 U/L 10 - 60 [iU]/L [facility] Anion gap [Moles/Vol] 2 mmol/L Kin [facility] AST [Catalytic activity/Vol] 96 U/L High 10 - 42 [iU]/L [facility] Bilirubin [Mass/Vol] 1.7 mg/dL High 0.2 - 1 .0 mg/dL [facility] Calcium [Mass/Vol] 8.6 mg/dL 8.5 - 10. 5 mg/dL [facility] Chloride [Moles/Vol] 112 mmol/L High 101 - 1 11 mmol/L [facility] CO2 [Moles/Vol] 25 mmol/L 21 - 31 mmol/L [facility] Creatinine [Mass/Vol] 0.8 mg/dL 0.4 - 1.0 mg/dL [facility] GFR/1.73 sq M.predicted MDRD (S/P/Bld) [Vol rate/Area] 76 mL/min/{1.73_m2} [facility] Comment on above: *The estimated Glome rular [...] 121 mg/dL High 70 - 110 mg/dL [facility] Interpretation and review of laboratory results Abnormal [facility] Osmolality Calc [Osmolality] 278 266 - 309 [facility] Potassium [Moles/Vol] 3.9 mmol/L 3.6 - 5.0 mmol/L [facility] Protein [Mass/Vol] 6.7 g/dL 6.1 - 7.8 g/dL [facility] Sodium [Moles/Vol] 139 mmol/L 135 - 145 mmol/L [facility] Urea nitrogen [Mass/Vol] 11 mg/dL 2 - 32 mg/dL [facility] Urea nitrogen/Creatinine [Mass ratio] 14 mg/mg 10 - 20 [facility] FLUID CELL COUNTon 4 Character (U) Clear Normal [facility] Comment on above: Performed By: #### L QH1785 ####[facility] [address] [place] [address] Color (U) Yellow Normal [facility] Comment on above: Performed By: #### L ML3121 ####[place] [address] FLD COMMENT see below [facility] Comment on above: Result Comment: Refe rence ranges & other method performance specifications have not beenestablished for this body fluid type. The test result must be integratedinto the clinical context for interpretation. Performed By: #### L ME5585 ####[place] [address] RBC 587 uL [facility] Comment on above: Performed By: #### L NI7229 ####[place] [address] SOURCE Ascites [facility] Comment on above: Performed By: #### L WI1145 ####[place] [address] TOTAL NUC. CELLS 97 uL [facility] Comment on above: Result Comment: RESU LTS OF COUNT MAY BE INACCURATE IF SPECIMEN IS PARTIALLYCLOTTED OR EXHIBIT CELL CLUMPING. Performed By: #### L MU5272 ####[place] [address] TUBE NUMBER Syringe [facility] Comment on above: Performed By: #### L OH9014 ####[place] [address] VOLUME 60.0 [facility] Comment on above: Performed By: #### L OW4329 ####[place] [address] FLUID CULTUREon 07-02-2024 FLUID CULTURE Bacteria identified in Body fluid by Culture FLUID CULTURE: No growth. Microscopic observation [Identifier] in Specimen by Gram stain GRAM STAIN SMEAR: Few WBC'S. No organisms seen. [facility] Comment on above: Performed By: #### L QF1011 ####[place] [address] GLUCOSE, FLUIDon 07-02-2024 GLUCOSE, FLUID 138 mg/dL [facility] Comment on above: Order Comment: ascit es Result Comment: Refe rence ranges & other method performance specifications have not beenestablished for this body fluid type. The test result must be integratedinto the clinical context for interpretation. Performed By: #### L OZ2250, UJY5953, LVG5568, AGE3147, SUT6353 ####[facility] [address] [place] [address] Glucose Body Fluidon 024 Glucose (Body fld) [Mass/Vol] 138 mg/dL [facility] Comment on above: Reference ranges & o ther method performance specifications have not been established for this body fluid type. The test result must be integrated into the clinical context for interpretation. HEPATITIS PANEL ACUTEon HEPATITIS C AB Reactive Abnormal Negative [facility] Comment on above: Result Comment: Conf irmatory testing is recommended and is available at [facility](order [id number]). Performed By: #### L PT5699 ####[place] [address] HEP B CORE AB IGM Negative Normal Negative [facility] Comment on above: Performed By: #### L KT6673 ####[place] [address] HEPATITIS A AB IGM Negative Normal Negative [facility] Comment on above: Performed By: #### L EV5816 ####[place] [address] HEP B SURFACE AG Negative Normal Negative [facility] Comment on above: Performed By: #### L AG1347 ####[place] [address] Hepatitis Panelon 07-02-2024 HAV IgM IA Ql Negative Negative [facility] HBV core IgM IA Qn Negative Negative [facility] HBV surface Ag IA Ql Negative Negative [facility] HCV Ab IA Ql Reactive Abnormal Negative [facility] Comment on above: Confirmatory testing is recommended and is available at [facility] (order [id number]). Interpretation and review of laboratory results Abnormal [facility] LDH, FLUIDon 07-02-2024 LDH FLUID 46 [iU]/L Low 60-160 [facility] Comment on above: Order Comment: ascit es Performed By: #### L [id number], IOC5715, QFB3582, ZRP5108, XVT2797 ####[place] [address] LDH, Fluidon 07-02-2024 Interpretation and review of laboratory results Abnormal [facility] LDH (Body fld) [Catalytic activity/Vol] 46 [iU]/L Low 60 - 160 [iU]/L [facility] LIPASEon 07-02-2024 Lipase [Catalytic activity/Vol] 41 U/L Normal -82 [facility] Comment on above: Performed By: #### L QZ7441, LQE5783, WEI1237, ZAC9538 ####[place] [address] Lipaseon 07-02-2024 Lipase [Catalytic activity/Vol] 41 U/L 11 - 82 U/L [facility] NON FISH PROCESSOR CASESon 07-02-2024 NON FISH PROCESSOR CASES Normal [facility] Comment on above: Performed By: #### L [id number] ####[place] [address] No Panel Informationon 07-02 ascites [facility] PH, FLUIDon 07-02-2024 PH, FLUID 7.7 Normal [facility] Comment on above: Order Comment: ascit es Performed By: #### L [id number], PPR8083, OKX2254, KDN8274, VGX6756 ####[place] [address] SOURCE ascites Normal [facility] Comment on above: Order Comment: ascit es Performed By: #### L HH9801, PUS4865, DJJ4061, HEE4854, TZQ5851 ####[place] [address] PROTEIN, FLUIDon 07-02-2024 SOURCE ascites Normal [facility] Comment on above: Order Comment: ascit es Performed By: #### L UE8739, QWK0463, ETW4981, PCA1869, WXE3528 ####[facility] [address] [place] [address] PROTEIN, FLUID 3.0 g/dL Normal [facility] Comment on above: Order Comment: ascit es Result Comment: Refe rence ranges & other method performance specifications have not beenestablished for this body fluid type. The test result must be integratedinto the clinical context for interpretation. Performed By: #### L GE6608, OEJ1408, DBN6847, NJG9664, YGH5307 ####[facility] [address] [place] [address] PT AND APTTon 07-02-2024 aPTT Coag (Bld) [Time] 37.1 s High 25.5-35.9 [facility] Comment on above: Performed By: #### L AF9250, QKQ0864, GYK6914, UGK7599 ####[address] [address] INR Coag (PPP) [Relative time] 1.4 {INR} High 0.9-1.1 [facility] Comment on above: LEVEL OF THERAPY IND [...] MECHANICAL HEART VALVES Performed By: #### L KB7974, OMW3212, YCH2501, XQT5737 ####[facility] [address] [place] [address] PT Coag (PPP) [Time] 17.3 s High 10.1-13.7 [facility] Comment on above: Performed By: #### L EJ0530, CDT7336, JQZ3299, TWO6745 ####[facility] [address] [place] [address] PT/APTT/INRon 07-02-2024 aPTT Coag (PPP) [Time] 37.1 s High 25.5 - 35.9 s [facility] Interpretation and review of laboratory results Abnormal [facility] Ph Body Fluidon 07-02-2024 pH (Body fld) 7.7 [pH] [facility] Specimen source Nom (Body fld) ascites [facility] ascites [facility] Protein Body Fluidon 024 Protein (Body fld) [Mass/Vol] 3.0 g/dL [facility] Comment on above: Reference ranges & o ther method performance specifications have not been established for this body fluid type. The test result must be integrated into the clinical context for interpretation. Specimen source Nom (Body fld) ascites [facility] ascites [facility] VASCULAR PROCEDUREon 024 VASCULAR PROCEDURE Normal [facility] Vascular Procedureon 024 [facility] Radiology Study observation (narrative) [facility] Bacteria Ur Culton 4 Bacteria identified Cx Nom (U) CULTURE, URINE: <10,000 CFU/mL Three or more organisms, no one type predominant, suggesting contamination during collection. Recollect if clinically indicated. Abnormal [facility] Comment on above: Performed By: #### 6 30-4 ####[facility] LABORATORYCLIA [id number] [place] [address] [place] CBC panel Auto (Bld)on 06-05 Erythrocyte distribution width (RBC) [Ratio] 16.6 % High 11.5-15.0 [facility]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 CBC, LUIS BERTRAND, ANEU #### [address] [address] Chloride [Moles/Vol] 106 mmol/L Normal 98-107 [facility] ([place]) Comment on above: Performed By: #### B MP, MORPH, GFR, CBC, ELZA, LUIS, ANEU #### [address] [address] CO2 [Moles/Vol] 24 mmol/L Normal 22-29 [facility] ([place]) Comment on above: Performed By: #### B MP, MORPH, GFR, CBC, ELZA, LUIS, ANEU #### [address] [address] Creatinine [Mass/Vol] 0.93 mg/dL Normal 0.55-1.02 [facility] ([place]) Comment on above: Performed By: #### B MP, MORPH, GFR, CBC, LUIS BERTRAND, ANEU #### [address] [address] Electrolyte Balance 8.0 mEq/L Normal 4.0-15.0 [facility] ([place]) Comment on above: Performed By: #### B MP, MORPH, GFR, CBC, LUIS BERTRAND, ANEU #### [address] [address] Glucose [Mass/Vol] 100 mg/dL Normal 70-105 [facility] ([place]) Comment on above: Performed By: #### B MP, MORPH, GFR, CBC, ELZA, LUIS, ANEU #### [address] [address] Potassium [Moles/Vol] 3.6 mmol/L Normal 3.5-5.1 [facility] ([place]) Comment on above: Performed By: #### B MP, MORPH, GFR, CBC, ELZA, LUIS, ANEU #### [address] [address] Sodium [Moles/Vol] 138 mmol/L Normal 136-145 [facility] ([place]) Comment on above: Performed By: #### B MP, MORPH, GFR, CBC, ADIFF, MDW, ANEU #### [address] [address] Urea nitrogen [Mass/Vol] 13 mg/dL Normal 7-18 [facility] ([place]) Comment on above: Performed By: #### B MP, MORPH, GFR, CBC, ADIFF, MDW, ANEU #### [place] [id number] CBCon 03-23-2024 Erythrocyte distribution width (RBC) [Ratio] 20.9 % High 11.5-14.5 [facility] ([place]) Comment on above: Performed By: #### B MP, MORPH, GFR, CBC, ADIFF, MDW, ANEU #### [address] [address] Hematocrit (Bld) [Volume fraction] 33.8 % Low 37.0-47.0 [facility] ([place]) Comment on above: Performed By: #### B MP, MORPH, GFR, CBC, ADIFF, MDW, ANEU #### [address] [address] Hgb 11.7 G/dL Low 12.0-16.0 [facility] ([place]) Comment on above: Performed By: #### B MP, MORPH, GFR, CBC, ADIFF, MDW, ANEU #### [address] [address] MCH (RBC) [Entitic mass] 29.4 pg Normal 27.0-31.2 [facility] ([place]) Comment on above: Performed By: #### B MP, MORPH, GFR, CBC, ADIFF, MDW, ANEU #### [place] [address] MCHC 34.5 G/dL Normal 33.0-37.0 [facility] ([place]) Comment on above: Performed By: #### B MP, MORPH, GFR, CBC, ADIFF, MDW, ANEU #### [place] [id number] MCV (RBC) [Entitic vol] 85.3 fL Normal 80.0-94.0 [facility] ([place]) Comment on above: Performed By: #### B MP, MORPH, GFR, CBC, ELZA, LUIS, ANEU #### [address] [address] Platelet 64 10 3/mcL Low 130-400 [facility] ([place]) Comment on above: Performed By: #### B MP, MORPH, GFR, CBC, ADIFF, MDW, ANEU #### [address] [address] Platelet mean volume (Bld) [Entitic vol] 8.2 fL Normal 7.4-10.4 [facility] ([place]) Comment on above: Performed By: #### B MP, MORPH, GFR, CBC, ADIFF, MDW, ANEU #### [address] [address] RBC 3.97 10 6/mcL Low 4.20-5.40 [facility] ([place]) Comment on above: Performed By: #### B MP, MORPH, GFR, CBC, ADIFF, MDW, ANEU #### [address] [address] WBC 6.7 10 3/mcL Normal 4.6-10.8 [facility] ([place]) Comment on above: Performed By: #### B MP, MORPH, GFR, CBC, ADIFF, MDW, ANEU #### [address] [address] [address] SOFT TISSUE NECK W/ CONTR David [...] 03/23/2024 5:09:20 PM Ordering Provider: HAYDER Lagos [facility] ([place]) LABORATORYOrdered By: SYSTEM SYSTEM on 03-23-2024 Ammonia [...] Routine cultures are held for [address] [facility] Work Phone: UA DIP, URINE (POC)on 2023 BILIRUBIN UA (POCT) Negative Negative [facility] CLARITY UA (POCT) Cloudy [facility] COLOR [facility]A (POCT) Dark [facility] GLUCOSE UA (POCT) Negative Negative mg/dL [facility] Hemoglobin Ql (U) Large Abnormal Negative [facility] Interpretation and review of laboratory results Abnormal [facility] KETONE UA (POCT) Negative Negative mg/dL [facility] LEUKOCYTES UA (POCT) Small Abnormal Negative [facility] NITRITE UA (POCT) Positive Abnormal Negative [facility] PH UA (POCT) 6.0 4.5 - 8.0 [facility] Protein Ql (U) 100 mg/dL Abnormal Negative [facility] SPECIFIC GRAVITY UA (POCT) 1.025 1.005 - 1.030 [facility] UROBILINOGEN UA (POCT) 2.0 Abnormal Normal E.U./d L [facility] Location:[address], [place], [place], [id number] [place] [address] POINT OF CARE [facility] Absolute lymphocyte countOrd ered By: Shon Quintero on 12-09-2023 Lymphocytes Auto (Unsp spec) [#/Vol] 1.56 10*3/uL 0.83-4.51 [facility] Automated lymphocyte count a s percentage of total leukocytesOrdered By: Shon Quintero on 12-09-2023 Lymphocytes/100 WBC Auto (Unsp spec) 21.5 % 19-41 [facility] Basophil percentageOrdered B y: Erik Cordova on 12-09-2023 Basophil percentage 10-25 SEEN /hpf 0-5 [facility] Basophil percentage 29.0 umol/L 11-32 [facility] Basophil percentageOrdered B y: Shon Quintero on 12-09-2023 Basophil percentage 8.9 g/dL 12.0-15.0 [facility] Basophil percentage 108 mg/dL 74-106 [facility] Basophil percentage 8.0 g/dL 6.4-8.2 [facility] Basophil percentage 1.70 mg/dL 0.20-1.00 [facility] Basophil percentage 139 mmol/L 136-145 [facility] Basophil percentage 3.7 mmol/L 3.5-5.1 [facility] Basophil percentage 112 mmol/L 98-107 [facility] Basophils (Bld) [#/Vol] 7.3 10*3/uL 4.4-11.0 [facility] Basophils (Bld) [#/Vol] 4.7 10*3/uL 2.0-7.7 [facility] Basophils/100 WBC (Bld) 64.5 % 47-70 [facility] Basophils/100 WBC (Bld) 10.8 % 0-10 [facility] Basophils/100 WBC (Bld) 1.9 % 0-5 [facility] Basophils/100 WBC (Bld) 1.0 % 0-1 [facility] Bilirubin Test strip Ql (U)O rdered By: Erik Cordova on 12-09-2023 Bilirubin Ql (U) 1 mg/dL Negative [facility] Blood platelet adequacy dete ction by light microscopyOrdered By: Shon Quintero on 12-09-2023 Platelets LM Ql (Bld) MOD DEC ADEQ [facility] Determination of erythrocyte mean corpuscular volume (MCV)Ordered By: Shon Quintero on 12-09-2023 MCV (RBC) [Entitic vol] 81.9 fL 81-99 [facility] Direct bilirubinOrdered By: ED PROVIDER on 12-09-2023 Bilirubin.direct [Mass/Vol] 0.85 mg/dL 0.00-0.30 [facility] Erythrocyte distribution wid th ratioOrdered By: Shon Quintero on 12-09-2023 Erythrocyte distribution width (RBC) [Ratio] 25.8 % 11.6-14.6 [facility] Erythrocyte distribution wid th standard deviationOrdered By: Shon Quintero on 12-09-2023 Erythrocyte distribution width (RBC) [Entitic vol] 75.5 fL 35.1-43.9 [facility] Hematocrit Auto (Bld) [Volum e fraction]Ordered By: Shon Quintero on 12-09-2023 Hematocrit (Bld) [Volume fraction] 29.8 % 37-47 [facility] Immature granulocytes/100 WB C Auto (Bld)Ordered By: Shon Quintero on 12-09-2023 Immature granulocytes/100 WBC (Bld) 0.300 % 0.0-0.9 [facility] Ketones Test strip Ql (U)Ord ered By: Erik Cordova on 12-09-2023 Ketones Ql (U) 5 mg/dl Negative [facility] Mucus LM Ql (Urine sed)Order ed By: Erik Cordova on 12-09-2023 Mucus Ql (Urine sed) 2+ /hpf [facility] Nitrite Test strip Ql (U)Ord ered By: Erik Cordova on 12-09-2023 Nitrite Ql (U) Positive Negative [facility] No Panel InformationOrdered By: Erik Cordova on 12-09-2023 0 SEEN /hpf 0-5 [facility] 19.2 SECONDS 11.7-14.9 [facility] 1.6 [facility] 58 U/L 13-75 [facility] No Panel InformationOrdered By: Shon Quintero on 12-09-2023 24.5 pg 27.0-32.0 [facility] 29.9 g/dL 32-36 [facility] 69 K/mm3 150-450 [facility] TNP [facility] 0 % 0-5 [facility] 1+ [facility] 71 mL/min >60 [facility] 86 mL/min >60 [facility] 75.00 ml/min [facility] 11.2 RATIO 10-20 [facility] 5.3 g/dL 2.2-4.2 [facility] 0.5 RATIO 0.9-2.4 [facility] 148 U/L 45-117 [facility] 45 U/L 13-56 [facility] 23.0 mmol/L 21.0-32.0 [facility] Ovalocyte detectionOrdered B y: Shon Quintero on 12-09-2023 Ovalocytes LM Ql (Bld) RARE [facility] Protein Test strip Ql (U)Ord ered By: Erik Cordova on 12-09-2023 Protein Ql (U) 30 mg/dl Negative [facility] RBC Auto (Bld) [#/Vol]Ordere d By: Shon Quintero on 12-09-2023 RBC (Bld) [#/Vol] 3.64 10*6/uL 4.2-5.4 [facility] RBC morphologyOrdered By: Senait Quintero on 12-09-2023 RBC morphology finding Nom (Bld) N CHROM NORMAL NORM C&C [facility] Serum or plasma calcium latrice urement (mass/volume)Ordered By: Shon Quintero on 12-09-2023 Calcium [Mass/Vol] 8.8 mg/dL 8.5-10.1 [facility] Serum or plasma choriogonado tropin detectionOrdered By: Shon Quintero on 12-09-2023 HCG ( test) Ql Negative [facility] Serum or plasma creatinine m easurement (mass/volume)Ordered By: Shon Quintero on 12-09-2023 Creatinine [Mass/Vol] 0.89 mg/dL 0.55-1.[address] [facility] Serum or plasma urea nitroge n measurement (mass/volume)Ordered By: Shon Quintero on 12-09-2023 Urea nitrogen [Mass/Vol] 10 mg/dL 7-18 [facility] Squamous epithelial cells de tection in urine sediment by light microscopyOrdered By: Erik Cordova on 12-09-2023 Epithelial cells.squamous LM Ql (Urine sed) 0-5 SEEN /hpf 5-10 [facility] Thin prep Papanicolaou smear with manual screeningOrdered By: Shon Quintero on 12-09-2023 Thin prep Papanicolaou smear with manual screening 1+ [facility] Thin prep Papanicolaou smear with manual screening 2.7 g/dL 3.2-5.0 [facility] Thin prep Papanicolaou smear with manual screening 73 U/L 15-37 [facility] Thin prep Papanicolaou smear with manual screening 4 5-15 [facility] Urine blood detectionOrdered By: Erik Cordova on 12-09-2023 RBC Ql (U) 150 /ul Negative [facility] Urine clarityOrdered By: Marysol Cordova on 12-09-2023 Clarity (U) Clear Clear [facility] Urine color determinationOrd ered By: Erik Cordova on 12-09-2023 Color (U) Yellow Yellow [facility] Urine glucose detectionOrder ed By: Erik Cordova on 12-09-2023 Glucose Ql (U) Normal mg/dl Normal [facility] Urine leukocyte esterase det ection by dipstickOrdered By: Erik Cordova on 12-09-2023 Leukocyte esterase Test strip Ql (U) 100 /ul Negative [facility] Urine pHOrdered By: Erik cabrales on 12-09-2023 pH (U) 6.5 [pH] 5.0 - 8.0 [facility] Urine sediment bacteria coun t by microscopy (number/high power field)Ordered By: Erik Cordova on 12-09-2023 Bacteria LM.HPF (Urine sed) [#/Area] 1 /[HPF] None Seen [facility] Urine specific gravity measu rementOrdered By: Erik Cordova on 12-09-2023 Specific gravity (U) [Rel density] 1.020 1.002-1.030 [facility] Urine urobilinogen measureme ntOrdered By: Erik Cordova on 12-09-2023 Urobilinogen Ql (U) 4 mg/dl Normal [facility] Absolute lymphocyte countOrd ered By: Son Adams on 12-07-2023 Lymphocytes Auto (Unsp spec) [#/Vol] 1.82 10*3/uL 0.83-4.51 [facility] Automated lymphocyte count a s percentage of total leukocytesOrdered By: Son Adams on 12-07-2023 Lymphocytes/100 WBC Auto (Unsp spec) 34.6 % 19-41 [facility] Basophil percentageOrdered B y: Son Adams on 12-07-2023 Basophil percentage 8.4 g/dL 12.0-15.0 [facility] Basophil percentage 101 mg/dL 74-106 [facility] Basophil percentage 6.7 g/dL 6.4-8.2 [facility] Basophil percentage 1.30 mg/dL 0.20-1.00 [facility] Basophil percentage 140 mmol/L 136-145 [facility] Basophil percentage 3.7 mmol/L 3.5-5.1 [facility] Basophil percentage 110 mmol/L 98-107 [facility] Basophils (Bld) [#/Vol] 5.3 10*3/uL 4.4-11.0 [facility] Basophils (Bld) [#/Vol] 2.5 10*3/uL 2.0-7.7 [facility] Basophils/100 WBC (Bld) 47.4 % 47-70 [facility] Basophils/100 WBC (Bld) 12.2 % 0-10 [facility] Basophils/100 WBC (Bld) 4.6 % 0-5 [facility] Basophils/100 WBC (Bld) 0.8 % 0-1 [facility] Blood platelet adequacy dete ction by light microscopyOrdered By: Son Adams on 12-07-2023 Platelets LM Ql (Bld) MKD DEC ADEQ [facility] Determination of erythrocyte mean corpuscular volume (MCV)Ordered By: Son Adams on 12-07-2023 MCV (RBC) [Entitic vol] 80.9 fL 81-99 [facility] Direct bilirubinOrdered By: Son Adams on 12-07-2023 Bilirubin.direct [Mass/Vol] 0.70 mg/dL 0.00-0.30 [facility] Erythrocyte distribution wid th ratioOrdered By: Son Adams on 12-07-2023 Erythrocyte distribution width (RBC) [Ratio] 25.8 % 11.6-14.6 [facility] Erythrocyte distribution wid th standard deviationOrdered By: Son Adams on 12-07-2023 Erythrocyte distribution width (RBC) [Entitic vol] 75.2 fL 35.1-43.9 [facility] Hematocrit Auto (Bld) [Volum e fraction]Ordered By: Son Adams on 12-07-2023 Hematocrit (Bld) [Volume fraction] 27.9 % 37-47 [facility] Hypochromatic red blood cell detectionOrdered By: Son Adams on 12-07-2023 Hypochromia Ql (Bld) 1+ [facility] Immature granulocytes/100 WB C Auto (Bld)Ordered By: Son Adams on 12-07-2023 Immature granulocytes/100 WBC (Bld) 0.400 % 0.0-0.9 [facility] No Panel InformationOrdered By: Son Adams on 12-07-2023 24.3 pg 27.0-32.0 [facility] 30.1 g/dL 32-36 [facility] 59 K/mm3 150-450 [facility] 0 % 0-5 [facility] 1+ [facility] 87 mL/min >60 [facility] 105 mL/min >60 [facility] 87.75 ml/min [facility] 12.0 RATIO 10-20 [facility] 4.5 g/dL 2.2-4.2 [facility] 123 U/L 45-117 [facility] 36 U/L 13-56 [facility] 26.0 mmol/L 21.0-32.0 [facility] RBC Auto (Bld) [#/Vol]Ordere d By: Son Adams on 12-07-2023 RBC (Bld) [#/Vol] 3.45 10*6/uL 4.2-5.4 [facility] Serum or plasma calcium latrice urement (mass/volume)Ordered By: Son Adams on 12-07-2023 Calcium [Mass/Vol] 7.9 mg/dL 8.5-10.1 [facility] Serum or plasma creatinine m easurement (mass/volume)Ordered By: Son Adams on 12-07-2023 Creatinine [Mass/Vol] 0.75 mg/dL 0.55-1.[address] [facility] Serum or plasma urea nitroge n measurement (mass/volume)Ordered By: Son Adams on 12-07-2023 Urea nitrogen [Mass/Vol] 9 mg/dL 7-18 [facility] Thin prep Papanicolaou smear with manual screeningOrdered By: Son Adams on 12-07-2023 Thin prep Papanicolaou smear with manual screening 2.2 g/dL 3.2-5.0 [facility] Thin prep Papanicolaou smear with manual screening 53 U/L 15-37 [facility] Thin prep Papanicolaou smear with manual screening 4 5-15 [facility] No Panel InformationOrdered By: Son Adams on 12-06-2023 9.8 fl 6.2-12.0 [facility] 20.5 SECONDS 11.7-14.9 [facility] 1.8 [facility] Anaerobic cultureOrdered By: Son Adams on 12-05-2023 Bacteria identified Anaer cx Nom (Unsp spec) No growth in 5 days. [facility] Basophil percentageOrdered B y: Son Adams on 12-05-2023 Basophil percentage 2.8 mg/dL 2.5-4.9 [facility] Basophil percentageOrdered B y: Sowmya White on 12-05-2023 Basophil percentage 37.0 umol/L [facility] Body fluid albumin measureme nt by colorimetric method (mass/volume)Ordered By: Son Adams on 12-05-2023 Albumin Ql (Body fld) 0.7 g/dL Not Estab. [facility] Body fluid amylase measureme nt (enzymatic activity/volume)Ordered By: Son Adams on 12-05-2023 Amylase (Body fld) [Catalytic activity/Vol] 13 U/L . [facility] Body fluid appearanceOrdered By: Son Adams on 12-05-2023 Appearance (Body fld) CLEAR [facility] Body fluid color determinati onOrdered By: Son Adams on 12-05-2023 Color (Body fld) LT YEL [facility] Body fluid leukocytes count (number/volume)Ordered By: Son Adams on 12-05-2023 WBC (Body fld) [#/Vol] 0.136 10*3/uL [facility] Body fluid lymphocytes/100 l eukocytesOrdered By: Son Adams on 12-05-2023 Lymphocytes/100 WBC (Body fld) 27 % [facility] Body fluid macrophage countO rdered By: Son Adams on 12-05-2023 Macrophages (Body fld) [#/Vol] 69 % [facility] Body fluid mesothelial cell percentageOrdered By: Son Adams on 12-05-2023 Mesothelial cells/100 WBC (Body fld) 4 % [facility] Body fluid mononuclear cell percentageOrdered By: Son Adams on 12-05-2023 Mononuclear cells/100 WBC (Body fld) 95.6 % [facility] Body fluid polymorphonuclear leukocyte countOrdered By: Son Adams on 12-05-2023 Polymorphonuclear cells (Body fld) [#/Vol] 0.006 10^3/uL [facility] Body fluid total cell countO rdered By: Son Adams on 12-05-2023 Cells Counted Total (Body fld) [#] 0.189 10^3/ul 0.000-0.000 [facility] Cytology report of Body flui d Cyto stainOrdered By: Son Adams on 12-05-2023 Cytology report Cyto stain Doc (Body fld) SEE PATHOLOGY REPORT [facility] Gram stain for investigation of transfusion reactionOrdered By: Son Adams on 12-05-2023 Microscopic observation Gram stain Nom (Unsp spec) [facility] No Panel InformationOrdered By: Son Adams on 12-05-2023 101 /mm3 [facility] 4.4 % [facility] 0.130 10^3/uL [facility] SEE COMMENT [facility] 95 mg/dL 40-70 [facility] Culture exhibits no growth. [facility] No Panel InformationOrdered By: Sowmya Mirza on 12-05-2023 0.4 RATIO 0.9-2.4 [facility] Pathologist interpretation o f Body fluid testsOrdered By: Son Adams on 12-05-2023 Pathologist interpretation (Body fld) [Interp] May follow [facility] Pathologist interpretation (Body fld) [Interp] Reviewed [facility] Specimen source identificati on of body fluidOrdered By: Son Adams on 12-05-2023 Specimen source Nom (Body fld) OTHER [facility] Absolute lymphocyte countOrd ered By: Mica Díaz on 12-04-2023 Lymphocytes Auto (Unsp spec) [#/Vol] 1.43 10*3/uL 0.83-4.51 [facility] Amorphous sediment detection in urine sediment by light microscopyOrdered By: Mica Díaz on 12-04-2023 Amorphous sediment LM Ql (Urine sed) 1+ URATE [facility] Automated lymphocyte count a s percentage of total leukocytesOrdered By: Mica Díaz on 12-04-2023 Lymphocytes/100 WBC Auto (Unsp spec) 23.3 % 19-41 [facility] Basophil percentageOrdered B y: Mica Díaz on 12-04-2023 Basophil percentage 25-50 SEEN /hpf 0-5 [facility] Ammonia (P) [Moles/Vol] 45.0 umol/L 11-32 [facility] Basophils/100 WBC (Bld) 1.0 % 0-1 [facility] Bilirubin [Mass/Vol] 2.10 mg/dL 0.20-1.00 [facility] Comment on above: For patients on eltr ombopag therapy, use of Dimension [place] TBIL is not recommended. Chloride [Moles/Vol] 110 mmol/L 98-107 [facility] Eosinophils/100 WBC (Bld) 2.3 % 0-5 [facility] Glucose [Mass/Vol] 117 mg/dL 74-106 [facility] Comment on above: Fasting Glucose resu lt from 100 to 125 mg/dL suggests IMPAIRED HOMEOSTASIS per A.D.A. criteria. Hemoglobin (Bld) [Mass/Vol] 8.9 g/dL 12.0-15.0 [facility] Monocytes/100 WBC (Bld) 10.7 % 0-10 [facility] Neutrophils (Bld) [#/Vol] 3.8 10*3/uL 2.0-7.7 [facility] Neutrophils/100 WBC (Bld) 62.4 % 47-70 [facility] Potassium [Moles/Vol] 4.0 mmol/L 3.5-5.[address] [facility] Protein [Mass/Vol] 7.3 g/dL 6.4-8.2 [facility] Sodium [Moles/Vol] 142 mmol/L 136-145 [facility] WBC (Bld) [#/Vol] 6.1 10*3/uL 4.4-11.0 [facility] Basophil percentageOrdered B y: Sowmya White on 12-04-2023 Basophil percentage 2.3 mg/dL 2.5-4.9 [facility] Bilirubin Test strip Ql (U)O rdered By: Mica Díaz on 12-04-2023 Bilirubin Ql (U) 3 mg/dL Negative [facility] Comment on above: COLOR OF URINE MAY A FFECT DIPSTICK RESULTS. Blood manual differential co mment interpretation (narrative result)Ordered By: Mica Díaz on 12-04-2023 Manual differential comment Eliezer (Bld) [Interp] SCANNED [facility] Determination of erythrocyte mean corpuscular volume (MCV)Ordered By: Mica Díaz on 12-04-2023 MCV (RBC) [Entitic vol] 82.1 fL 81-99 [facility] Erythrocyte distribution wid th ratioOrdered By: Mica Díaz on 12-04-2023 Erythrocyte distribution width (RBC) [Ratio] 27.1 % 11.6-14.6 [facility] Erythrocyte distribution wid th standard deviationOrdered By: Mica Díaz on 12-04-2023 Erythrocyte distribution width (RBC) [Entitic vol] 79.4 fL 35.1-43.9 [facility] Hematocrit Auto (Bld) [Volum e fraction]Ordered By: Mica Díaz on 12-04-2023 Hematocrit (Bld) [Volume fraction] 30.2 % 37-47 [facility] Hypochromatic red blood cell detectionOrdered By: Mica Díaz on 12-04-2023 Hypochromia Ql (Bld) 1+ [facility] Immature granulocytes/100 WB C Auto (Bld)Ordered By: Mica Díaz on 12-04-2023 Immature granulocytes/100 WBC (Bld) 0.300 % 0.0-0.9 [facility] Comment on above: IG% - Immature Granu locytes (promyelocytes, myelocytes and metamyelocytes) > 1% indicates that a LEFT SHIFT is Present. Ketones Test strip Ql (U)Ord ered By: Mica Díaz on 12-04-2023 Ketones Ql (U) 15 mg/dl Negative [facility] Laboratory - Chemistry and C hemistry - challengeOrdered By: Mica Díaz on 12-04-2023 Albumin/Globulin [Mass ratio] 0.4 {ratio} 0.9-2.4 [facility] ALP [Catalytic activity/Vol] 143 U/L 45-117 [facility] ALT [Catalytic activity/Vol] 47 U/L 13-56 [facility] CO2 [Moles/Vol] 27.0 mmol/L 21.0-32.0 [facility] Globulin (S) [Mass/Vol] 5.1 g/dL 2.2-4.2 [facility] Lipase [Catalytic activity/Vol] 30 U/L 13-75 [facility] Comment on above: Please note:LIPASE r evised reference range effective 23. New Lipase methodology. Expected to produce lower values than the previous assay method. NEW Reference Range: 13 - 75 U/L Urea nitrogen/Creatinine [Mass ratio] 12.2 mg/mg 10-20 [facility] - Chemistry and C hemistry - challengeOrdered By: Sowmya Mirza on 12-04-2023 Magnesium [Mass/Vol] 1.6 mg/dL 1.6-2.6 [facility] - CoagulationOrde red By: Mica Díaz on 12-04-2023 INR Coag (Bld) [Relative time] 1.7 {INR} [facility] PT Coag (PPP) [Time] 20.0 s 11.7-14.9 [facility] - Hematology and Cell countsOrdered By: Mica Díaz on 12-04-2023 Anisocytosis Ql (Bld) 2+ [facility] MCH (RBC) [Entitic mass] 24.2 pg 27.0-32.0 [facility] MCHC (RBC) [Mass/Vol] 29.5 g/dL 32-[address] [facility] Nucleated RBC/100 WBC (Bld) [Ratio] 0 % 0-5 [facility] Platelet mean volume (Bld) [Entitic vol] 9.5 fL 6.2-12.0 [facility] Platelets (Bld) [#/Vol] 87 10*3/uL 150-450 [facility] Macrocytes detectionOrdered By: Mica Díaz on 12-04-2023 Macrocytes Ql (Bld) 1+ [facility] Mucus LM Ql (Urine sed)Order ed By: Mica Díaz on 12-04-2023 Mucus Ql (Urine sed) 0 SEEN /hpf [facility] Nitrite Test strip Ql (U)Ord ered By: Mica Díaz on 12-04-2023 Nitrite Ql (U) Positive Negative [facility] No Panel InformationOrdered By: Mica Díaz on 12-04-2023 Urine RBC 5-10 SEEN /hpf 0-5 [facility] 5-10 SEEN /hpf 0-5 [facility] Estimated Creatinine Clearance Calc 83.21 ml/min [facility] Estimated GFR (MDRD) Amer 95 mL/min >60 [facility] Comment on above: GFR Calc Estimated GFR (MDRD) Non-Af Amer 79 mL/min >60 [facility] Comment on above: Non- GFR Calc 30 U/L 13-75 [facility] No Panel InformationOrdered By: Sowmya Mirza on 12-04-2023 [facility] Negative < 300 ng/mL [facility] Positive < 50 ng/mL [facility] 1.6 mg/dL 1.6-2.6 [facility] Protein Test strip Ql (U)Ord ered By: Mica Díaz on 12-04-2023 Protein Ql (U) 30 mg/dl Negative [facility] RBC Auto (Bld) [#/Vol]Ordere d By: Mica Díaz on 12-04-2023 RBC (Bld) [#/Vol] 3.68 10*6/uL 4.2-5.4 [facility] Serum or plasma calcium latrice urement (mass/volume)Ordered By: Mica Díaz on 12-04-2023 Calcium [Mass/Vol] 8.4 mg/dL 8.5-10.1 [facility] Serum or plasma creatinine m easurement (mass/volume)Ordered By: Mica Díaz on 12-04-2023 Creatinine [Mass/Vol] 0.82 mg/dL 0.55-1.[address] [facility] Comment on above: The validity of the calculated GFR & GFRAA in patients over 70 years has not been determined. Clinical correlation is essential. Serum or plasma urea nitroge n measurement (mass/volume)Ordered By: Mica Díaz on 12-04-2023 Urea nitrogen [Mass/Vol] 10 mg/dL 7-18 [facility] Squamous epithelial cells de tection in urine sediment by light microscopyOrdered By: Mica Díaz on 12-04-2023 Epithelial cells.squamous LM Ql (Urine sed) 0-5 SEEN /hpf 5-10 [facility] Target cell detectionOrdered By: Mica Díaz on 12-04-2023 Target cells LM Ql (Bld) RARE [facility] Thin prep Papanicolaou smear with manual screeningOrdered By: Mica Díaz on 12-04-2023 Thin prep Papanicolaou smear with manual screening 1+ [facility] Thin prep Papanicolaou smear with manual screening 2.2 g/dL 3.2-5.0 [facility] Thin prep Papanicolaou smear with manual screening 58 U/L 15-37 [facility] Thin prep Papanicolaou smear with manual screening 5 5-15 [facility] Urine blood detectionOrdered By: Mica Díaz on 12-04-2023 RBC Ql (U) 50 /ul Negative [facility] Urine clarityOrdered By: Daniel Díaz on 12-04-2023 Clarity (U) Sl. Cloudy Clear [facility] Urine color determinationOrd ered By: Mica Díaz on 12-04-2023 Color (U) Yellow Yellow [facility] Urine glucose detectionOrder ed By: Mica Díaz on 12-04-2023 Glucose Ql (U) Normal mg/dl Normal [facility] Urine leukocyte esterase det ection by dipstickOrdered By: Mica Díaz on 12-04-2023 Leukocyte esterase Test strip Ql (U) 500 /ul Negative [facility] Urine pHOrdered By: Zac Díaz on 12-04-2023 pH (U) 6.5 [pH] 5.0 - 8.0 [facility] Urine phencyclidine (PCP) de tectionOrdered By: Sowmya Mirza on 12-04-2023 Phencyclidine Ql (U) Negative < 25 ng/mL [facility] Urine sediment bacteria coun t by microscopy (number/high power field)Ordered By: Mica Díaz on 12-04-2023 Bacteria LM.HPF (Urine sed) [#/Area] RARE /hpf None Seen [facility] Urine specific gravity measu rementOrdered By: Mica Díaz on 12-04-2023 Specific gravity (U) [Rel density] 1.015 1.002-1.030 [facility] Urine urobilinogen measureme ntOrdered By: Mica Díaz on 12-04-2023 Urobilinogen Ql (U) 8 mg/dl Normal [facility] Basic metabolic 2000 panelon 11-23-2023 Anion gap [Moles/Vol] mmol/L Low 5-16 [facility] Comment on above: Order Comment: Speci men Type: BLOOD SPECIMENOrdering Facility: [facility] Address: [address] [place] [address] Performed By: #### 2 4321-2, ####[facility] LABORATORYCLIA [id number] [place] [address] [place] Calcium [Mass/Vol] 9.3 mg/dL Normal 8.5-10.5 [facility] Comment on above: Order Comment: Speci men Type: BLOOD SPECIMENOrdering Facility: [facility] Address: [address] [place] [address] Performed By: #### 2 432-2, ####[facility] LABORATORYCLIA [id number] [place] [address] [place] Chloride [Moles/Vol] 107 mmol/L Normal 98-107 [facility] Comment on above: Order Comment: Speci men Type: BLOOD SPECIMENOrdering Facility: [facility] Address: [address] [place] [address] Performed By: #### 2 4321-2, ####[facility] LABORATORYCLIA [id number] [place] [address] [place] CO2 [Moles/Vol] 28 mmol/L Normal 21-32 [facility] Comment on above: Order Comment: Speci men Type: BLOOD SPECIMENOrdering Facility: [facility] Address: [address] [place] [address] Performed By: #### 2 432-2, ####[facility] LABORATORYCLIA [id number] [place] [address] [place] Creatinine [Mass/Vol] 0.78 mg/dL Normal 0.51-0.95 [facility] Comment on above: Order Comment: Cole lamas Type: BLOOD SPECIMENOrdering Facility: [facility] Address: [address] [place] [id number] Result Comment: Tamie ents receiving either N-Acetylcysteine (NAC) or Metamizole prior to venipuncture, may have falsely depressed results. Performed By: #### 2 4321-2, ####[facility] LABORATORYCLIA [id number] [place] [address] [place] Creatinine and Glomerular filtration rate.predicted panel (S/P/Bld) 93 mL/min/1.73m??? Normal >=60 [facility] Comment on above: Order Comment: Cole lamas Type: BLOOD SPECIMENOrdering Facility: [facility] Address: [address] [place] [address] Result Comment: Connie mated Glomerular Filtration Rate [...] actual GFR. Performed By: #### 2 4321-2, ####[facility] LABORATORYCLIA [id number] [place] [address] [place] Glucose [Mass/Vol] 95 mg/dL Normal 70-100 [facility] Comment on above: Order Comment: Cole lamas Type: BLOOD SPECIMENOrdering Facility: [facility] Address: [address] [place] [id number] Result Comment: The [place] [employer] (ADA) provides guidance for cutoff [...] Standards of Medical Care in Diabetes 2016, [place] [employer]. Diabetes Care. 2016.39(Suppl 1). Results may be falsely elevated after the administration of Sulfapyridine. Results may be falsely depressed after the administration of Sulfasalazine. Performed By: #### 2 4321-2, ####[facility] LABORATORYCLIA [id number] [place] [address] [place] Potassium [Moles/Vol] 4.2 mmol/L Normal 3.5-5.1 [facility] Comment on above: Order Comment: Speci men Type: BLOOD SPECIMENOrdering Facility: [facility] Address: [address] [place] [address] Performed By: #### 2 432-2, ####[facility] LABORATORYCLIA [id number] [place] [address] [place] Sodium [Moles/Vol] 137 mmol/L Normal 136-145 [facility] Comment on above: Order Comment: Speci men Type: BLOOD SPECIMENOrdering Facility: [facility] Address: [address] [place] [address] Performed By: #### 2 4321-2, ####[facility] LABORATORYCLIA [id number] [place] [address] [place] Urea nitrogen [Mass/Vol] 18 mg/dL Normal 7-26 [facility] Comment on above: Order Comment: Speci men Type: BLOOD SPECIMENOrdering Facility: [facility] Address: [address] [place] [address] Performed By: #### 2 4321-2, ####[facility] LABORATORYCLIA [id number] [place] [address] [place] CBC W Auto Differential pane l (Bld)on 11-23-2023 Anisocytosis Ql (Bld) Present Normal [facility] Comment on above: Order Comment: Speci men Type: BLOOD SPECIMENOrdering Facility: [facility] Address: [address] [place] [address] Performed By: #### 5 7021-8 ####[facility] LABORATORYCLIA [id number] [place] [address] [place] Band form neutrophils/100 WBC (Bld) 1.0 % Normal [facility] Comment on above: Order Comment: Speci men Type: BLOOD SPECIMENOrdering Facility: [facility] Address: [address] [place] [address] Performed By: #### 5 7021-8 ####[facility] LABORATORYCLIA [id number] [place] [address] [place] Basophils (Bld) [#/Vol] 0.00 10*3/uL Normal <0.11 [facility] Comment on above: Order Comment: Speci men Type: BLOOD SPECIMENOrdering Facility: [facility] Address: [address] [place] [address] Performed By: #### 5 7021-8 ####[facility] LABORATORYCLIA [id number] [place] [address] [place] Basophils/100 WBC (Bld) 0.0 % Normal [facility] Comment on above: Order Comment: Speci men Type: BLOOD SPECIMENOrdering Facility: [facility] Address: [address] [place] [address] Performed By: #### 5 7021-8 ####[facility] LABORATORYCLIA [id number] [place] [address] [place] Differential cell count method Nom (Bld) Manual Normal [facility] Comment on above: Order Comment: Speci men Type: BLOOD SPECIMENOrdering Facility: [facility] Address: [address] [place] [address] Performed By: #### 5 7021-8 ####[facility] LABORATORYCLIA [id number] [place] [address] [place] Eosinophils (Bld) [#/Vol] 0.13 10*3/uL Normal <0.46 [facility] Comment on above: Order Comment: Speci men Type: BLOOD SPECIMENOrdering Facility: [facility] Address: [address] [place] [address] Performed By: #### 5 7021-8 ####[facility] LABORATORYCLIA [id number] [place] [address] [place] Eosinophils/100 WBC (Bld) 1.0 % Normal [facility] Comment on above: Order Comment: Speci men Type: BLOOD SPECIMENOrdering Facility: [facility] Address: [address] [place] [address] Performed By: #### 5 7021-8 ####[facility] LABORATORYCLIA [id number] [place] [address] [place] Erythrocyte distribution width (RBC) [Ratio] 26.2 % High 11.5-15.0 [facility] Comment on above: Order Comment: Speci men Type: BLOOD SPECIMENOrdering Facility: [facility] Address: [address] [place] [address] Performed By: #### 5 7021-8 ####[facility] LABORATORYCLIA [id number] [address] [place] Hematocrit (Bld) [Volume fraction] 27.9 % Low 36.0-46.0 [facility] Comment on above: Order Comment: Speci men Type: BLOOD SPECIMENOrdering Facility: [facility] Address: [address] [place] [address] Performed By: #### 5 7021-8 ####[facility] LABORATORYCLIA [id number] [place] [address] [place] Hemoglobin (Bld) [Mass/Vol] 9.0 g/dL Low 11.5-15.5 [facility] Comment on above: Order Comment: Speci men Type: BLOOD SPECIMENOrdering Facility: [facility] Address: [address] [place] [address] Performed By: #### 5 7021-8 ####[facility] [facility] LABORATORYCLIA [id number] [place] [id number] [place] Lymphocytes (Bld) [#/Vol] 2.53 10*3/uL Normal 1.00-4.00 [facility] Comment on above: Order Comment: Speci men Type: BLOOD SPECIMENOrdering Facility: [facility] Address: [address] [place] [address] Performed By: #### 5 7021-8 ####[facility] LABORATORYCLIA [id number] [place] [id number] [place] Lymphocytes/100 WBC (Bld) 19.0 % Normal [facility] Comment on above: Order Comment: Speci men Type: BLOOD SPECIMENOrdering Facility: [facility] Address: [address] [place] [address] Performed By: #### 5 7021-8 ####[facility] LABORATORYCLIA [id number] [place] [address] [place] MCH (RBC) [Entitic mass] 24.3 pg Low 26.0-34.0 [facility] Comment on above: Order Comment: Speci men Type: BLOOD SPECIMENOrdering Facility: [facility] Address: [address] [place] [address] Performed By: #### 5 7021-8 ####[facility] LABORATORYCLIA [id number] [place] [address] [place] MCHC (RBC) [Mass/Vol] 32.3 g/dL Normal 30.5-36.0 [facility] Comment on above: Order Comment: Speci men Type: BLOOD SPECIMENOrdering Facility: [facility] Address: [address] [place] [address] Performed By: #### 5 7021-8 ####[facility] LABORATORYCLIA [id number] [place] [address] [place] MCV (RBC) [Entitic vol] 75.4 fL Low 80.0-100.0 [facility] Comment on above: Order Comment: Speci men Type: BLOOD SPECIMENOrdering Facility: [facility] Address: [address] [place] [address] Performed By: #### 5 7021-8 ####[facility] LABORATORYCLIA [id number] [place] [address] [place] Monocytes (Bld) [#/Vol] 1.33 10*3/uL High <0.87 [facility] Comment on above: Order Comment: Speci men Type: BLOOD SPECIMENOrdering Facility: [facility] Address: [address] [place] [address] Performed By: #### 5 7021-8 ####[facility] LABORATORYCLIA [id number] [place] [address] [place] Monocytes/100 WBC (Bld) 10.0 % Normal [facility] Comment on above: Order Comment: Speci men Type: BLOOD SPECIMENOrdering Facility: [facility] Address: [address] [place] [address] Performed By: #### 5 7021-8 ####[facility] LABORATORYCLIA [id number] [place] [address] [place] Neutrophils (Bld) [#/Vol] 9.31 10*3/uL High 1.45-7.50 [facility] Comment on above: Order Comment: Speci men Type: BLOOD SPECIMENOrdering Facility: [facility] Address: [address] [place] [address] Performed By: #### 5 7021-8 ####[facility] LABORATORYCLIA [id number] [place] [address] [place] Neutrophils/100 WBC (Bld) 69.0 % Normal [facility] Comment on above: Order Comment: Speci men Type: BLOOD SPECIMENOrdering Facility: [facility] Address: [address] [place] [address] Performed By: #### 5 7021-8 ####[facility] LABORATORYCLIA [id number] [place] [address] [place] Nucleated RBC (Bld) [#/Vol] 10*3/uL Normal <0.01 [facility] Comment on above: Order Comment: Speci men Type: BLOOD SPECIMENOrdering Facility: [facility] Address: [address] [place] [address] Performed By: #### 5 7021-8 ####[facility] LABORATORYCLIA [id number] [address] [place] Nucleated RBC/100 WBC (Bld) [Ratio] 0.0 /100 WBC Normal [facility] Comment on above: Order Comment: Speci men Type: BLOOD SPECIMENOrdering Facility: [facility] Address: [address] [place] [address] Performed By: #### 5 7021-8 ####[facility] LABORATORYCLIA [id number] [place] [address] [place] Ovalocytes LM Ql (Bld) Few Normal [facility] Comment on above: Order Comment: Speci men Type: BLOOD SPECIMENOrdering Facility: [facility] Address: [address] [place] [address] Performed By: #### 5 7021-8 ####[facility] LABORATORYCLIA [id number] [place] [address] [place] Platelet mean volume (Bld) [Entitic vol] 10.0 fL Normal 9.0-12.7 [facility] Comment on above: Order Comment: Speci men Type: BLOOD SPECIMENOrdering Facility: [facility] Address: [address] [place] [address] Performed By: #### 5 7021-8 ####[facility] LABORATORYCLIA [id number] [place] [address] [place] Platelets (Bld) [#/Vol] 107 10*3/uL Low 150-400 [facility] Comment on above: Order Comment: Speci men Type: BLOOD SPECIMENOrdering Facility: [facility] Address: [address] [place] [address] Result Comment: No c lot detected. Performed By: #### 5 7021-8 ####[facility] LABORATORYCLIA [id number] [place] [address] [place] Platelets Estimate (Bld) [#/Vol] Decreased Normal [facility] Comment on above: Order Comment: Speci men Type: BLOOD SPECIMENOrdering Facility: [facility] Address: [address] [place] [address] Performed By: #### 5 7021-8 ####[facility] LABORATORYCLIA [id number] [place] [address] [place] Polychromasia LM Ql (Bld) Slight Normal [facility] Comment on above: Order Comment: Speci men Type: BLOOD SPECIMENOrdering Facility: [facility] Address: [address] [place] [address] Performed By: #### 5 7021-8 ####[facility] LABORATORYCLIA [id number] [place] [address] [place] RBC (Bld) [#/Vol] 3.70 10*6/uL Low 3.90-5.20 [facility] Comment on above: Order Comment: Speci men Type: BLOOD SPECIMENOrdering Facility: [facility] Address: [address] [place] [address] Performed By: #### 5 7021-8 ####[facility] LABORATORYCLIA [id number] [address] [place] RED CELL MORPH Reviewed: see result s of individual morphologies Normal [facility] Comment on above: Order Comment: Speci men Type: BLOOD SPECIMENOrdering Facility: [facility] Address: [address] [place] [address] Performed By: #### 5 7021-8 ####[facility] LABORATORYCLIA [id number] [place] [address] [place] WBC (Bld) [#/Vol] 13.30 10*3/uL High 3.70-11.00 [facility] Comment on above: Order Comment: Speci men Type: BLOOD SPECIMENOrdering Facility: [facility] Address: [address] [place] [address] Performed By: #### 5 7021-8 ####[facility] LABORATORYCLIA [id number] [place] [id number] [place] CNDSon 11-23-2023 [facility] HNO ID: [id number] Author: JEROME AMAYA DO Service: Hospital Medicine [...] she has been evaluated multiple times at [facility] for similar symptoms. Paracentesis has been [...] Rocephin tomorrow, patient had paracentesis in [facility] without any significant results, he had paracentesis [...] =CHILDHOOD Bupropion (more content not included)... Normal [facility] Magnesium SerPl-mCncon 11-23 Magnesium [Mass/Vol] 1.7 mg/dL Normal 1.6-2.6 [facility] Comment on above: Order Comment: Speci men Type: BLOOD SPECIMENOrdering Facility: [facility] Address: [address] [place] [address] Performed By: #### 2 4321-2, 79546-1 ####[facility] LABORATORYCLIA [id number] [place] [address] [place] Basic metabolic 2000 panelon 11-22-2023 Anion gap [Moles/Vol] 3 mmol/L Low 5-16 [facility] Comment on above: Order Comment: Speci men Type: ARTERIAL BLOOD SPECIMEN [facility] Address: [address] [place] [address] Performed By: #### A LLBG #### [facility] CLIA [id number] [address] [place] [address] [place] Calcium [Mass/Vol] 9.7 mg/dL Normal 8.5-10.5 [facility] Comment on above: Order Comment: Speci men Type: ARTERIAL BLOOD SPECIMEN [facility] Address: [address] [place] [address] Performed By: #### A LLBG #### [facility] CLIA [id number] [address] [place] [address] [place] Chloride [Moles/Vol] 105 mmol/L Normal 98-107 [facility] Comment on above: Order Comment: Speci men Type: ARTERIAL BLOOD SPECIMEN [facility] Address: [address] [place] [address] Performed By: #### A LLBG #### [facility] CLIA [id number] [address] [place] [address] [place] CO2 [Moles/Vol] 28 mmol/L Normal 21-32 [facility] Comment on above: Order Comment: Speci men Type: ARTERIAL BLOOD SPECIMEN [facility] Address: [address] [place] [address] Performed By: #### A LLBG #### [facility] [place] [id number] [address] [place] [address] OF [facility] Creatinine [Mass/Vol] 0.81 mg/dL Normal 0.51-0.95 [facility] Comment on above: Order Comment: Cole lamas Type: ARTERIAL BLOOD SPECIMEN [facility] Address: [address] [place] [address] Result Comment: Tamie ents receiving either N-Acetylcysteine (NAC) or Metamizole prior to venipuncture, may have falsely depressed results. Performed By: #### A LLBG #### [facility] IA [id number] [address] [place] [address] Creatinine and Glomerular filtration rate.predicted panel (S/P/Bld) 89 mL/min/1.73m??? Normal >=60 [facility] Comment on above: Order Comment: Cole lamas Type: ARTERIAL BLOOD SPECIMEN [facility] Address: [address] [place] [address] Result Comment: Connie mated Glomerular Filtration Rate [...] GFR. Performed By: #### A LLBG #### [facility] IA [id number] [address] [place] [address] Glucose [Mass/Vol] 92 mg/dL Normal 70-100 [facility] Comment on above: Order Comment: Cole lamas Type: ARTERIAL BLOOD SPECIMEN [facility] Address: [address] [place] [address] Result Comment: The [place] [employer] (ADA) provides guidance for cutoff [...] Standards of Medical Care in Diabetes 2016, [place] [employer]. Diabetes Care. 2016.39(Suppl 1). Results may be falsely elevated after the administration of Sulfapyridine. Results may be falsely depressed after the administration of Sulfasalazine. Performed By: #### A LLBG #### [facility] CLIA [id number] [address] [place] [address] [place] Potassium [Moles/Vol] 4.4 mmol/L Normal 3.5-5.1 [facility] Comment on above: Order Comment: Speci men Type: ARTERIAL BLOOD SPECIMEN [facility] Address: [address] [place] [address] Performed By: #### A LLBG #### [facility] IA [id number] [address] [place] [address] [place] Sodium [Moles/Vol] 136 mmol/L Normal 136-145 [facility] Comment on above: Order Comment: Speci men Type: ARTERIAL BLOOD SPECIMEN [facility] Address: [address] [place] [address] Performed By: #### A LLBG #### [facility] IA [id number] [address] [place] [address] [place] Urea nitrogen [Mass/Vol] 18 mg/dL Normal 7-26 [facility] Comment on above: Order Comment: Speci men Type: ARTERIAL BLOOD SPECIMEN [facility] Address: [address] [place] [address] Performed By: #### A LLBG #### [facility] CLIA [id number] [address] [place] [address] [place] CBC W Auto Differential pane l (Bld)on 11-22-2023 Anisocytosis Ql (Bld) Present Normal [facility] Comment on above: Order Comment: Speci men Type: ARTERIAL BLOOD SPECIMEN [facility] Address: [address] [place] [address] Performed By: #### A LLBG #### [facility] CLIA [id number] [address] [place] [address] [place] Basophils (Bld) [#/Vol] 0.00 10*3/uL Normal <0.11 [facility] Comment on above: Order Comment: Speci men Type: ARTERIAL BLOOD SPECIMEN [facility] Address: [address] [place] [address] Performed By: #### A LLBG #### [facility] CLIA [id number] [address] [place] [address] [place] Basophils/100 WBC (Bld) 0.0 % Normal [facility] Comment on above: Order Comment: Speci men Type: ARTERIAL BLOOD SPECIMEN [facility] Address: [address] [place] [address] Performed By: #### A LLBG #### [facility] CLIA [id number] [address] [place] [address] [place] Differential cell count method Nom (Bld) Manual Normal [facility] Comment on above: Order Comment: Speci men Type: ARTERIAL BLOOD SPECIMEN [facility] Address: [address] [place] [address] Performed By: #### A LLBG #### [facility] CLIA [id number] [address] [place] [address] [place] DIMORPHIC POPULATION Present Normal [facility] Comment on above: Order Comment: Speci men Type: ARTERIAL BLOOD SPECIMEN [facility] Address: [address] [place] [address] Performed By: #### A LLBG #### [facility] CLIA [id number] [address] [place] [address] [place] Eosinophils (Bld) [#/Vol] 0.00 10*3/uL Normal <0.46 [facility] Comment on above: Order Comment: Speci men Type: ARTERIAL BLOOD SPECIMEN [facility] Address: [address] [place] [address] Performed By: #### A LLBG #### [facility] CLIA [id number] [address] [place] [address] [place] Eosinophils/100 WBC (Bld) 0.0 % Normal [facility] Comment on above: Order Comment: Speci men Type: ARTERIAL BLOOD SPECIMEN [facility] Address: [address] [place] [address] Performed By: #### A LLBG #### [facility] CLIA [id number] [address] [place] [address] [place] Erythrocyte distribution width (RBC) [Ratio] 26.1 % High 11.5-15.0 [facility] Comment on above: Order Comment: Speci men Type: ARTERIAL BLOOD SPECIMEN [facility] Address: [address] [place] [address] Performed By: #### A LLBG #### [facility] CLIA [id number] [address] [place] [address] [place] Hematocrit (Bld) [Volume fraction] 30.3 % Low 36.0-46.0 [facility] Comment on above: Order Comment: Speci men Type: ARTERIAL BLOOD SPECIMEN [facility] Address: [address] [place] [address] Performed By: #### A LLBG #### [facility] CLIA [id number] [address] [place] [address] [place] Hemoglobin (Bld) [Mass/Vol] 9.5 g/dL Low 11.5-15.5 [facility] Comment on above: Order Comment: Speci men Type: ARTERIAL BLOOD SPECIMEN [facility] Address: [address] [place] [address] Performed By: #### A LLBG #### [facility] CLIA [id number] [address] [place] [address] [place] Lymphocytes (Bld) [#/Vol] 2.01 10*3/uL Normal 1.00-4.00 [facility] Comment on above: Order Comment: Speci men Type: ARTERIAL BLOOD SPECIMEN [facility] Address: [address] [place] [address] Performed By: #### A LLBG #### [facility] CLIA [id number] [address] [place] [address] [place] Lymphocytes/100 WBC (Bld) 16.0 % Normal [facility] Comment on above: Order Comment: Speci men Type: ARTERIAL BLOOD SPECIMEN [facility] Address: [address] [place] [address] Performed By: #### A LLBG #### [facility] CLIA [id number] [address] [place] [address] [place] MCH (RBC) [Entitic mass] 24.4 pg Low 26.0-34.0 [facility] Comment on above: Order Comment: Speci men Type: ARTERIAL BLOOD SPECIMEN [facility] Address: [address] [place] [address] Performed By: #### A LLBG #### [facility] CLIA [id number] [address] [place] [address] [place] MCHC (RBC) [Mass/Vol] 31.4 g/dL Normal 30.5-36.0 [facility] Comment on above: Order Comment: Speci men Type: ARTERIAL BLOOD SPECIMEN [facility] Address: [address] [place] [address] Performed By: #### A LLBG #### [facility] CLIA [id number] [address] [place] [address] [place] MCV (RBC) [Entitic vol] 77.7 fL Low 80.0-100.0 [facility] Comment on above: Order Comment: Speci men Type: ARTERIAL BLOOD SPECIMEN [facility] Address: [address] [place] [address] Performed By: #### A LLBG #### [facility] CLIA [id number] [address] [place] [address] [place] Monocytes (Bld) [#/Vol] 0.88 10*3/uL High <0.87 [facility] Comment on above: Order Comment: Speci men Type: ARTERIAL BLOOD SPECIMEN [facility] Address: [address] [place] [address] Performed By: #### A LLBG #### [facility] CLIA [id number] [address] [place] [address] [place] Monocytes/100 WBC (Bld) 7.0 % Normal [facility] Comment on above: Order Comment: Speci men Type: ARTERIAL BLOOD SPECIMEN [facility] Address: [address] [place] [address] Performed By: #### A LLBG #### [facility] CLIA [id number] [address] [place] [address] [place] MYELO% 1.0 % Normal [facility] Comment on above: Order Comment: Speci men Type: ARTERIAL BLOOD SPECIMEN [facility] Address: [address] [place] [address] Performed By: #### A LLBG #### [facility] CLIA [id number] [address] [place] [address] [place] Neutrophils (Bld) [#/Vol] 9.57 10*3/uL High 1.45-7.50 [facility] Comment on above: Order Comment: Speci men Type: ARTERIAL BLOOD SPECIMEN [facility] Address: [address] [place] [address] Performed By: #### A LLBG #### [facility] CLIA [id number] [address] [place] [address] [place] Neutrophils.hypersegme nted LM Ql (Bld) Occasional Normal [facility] Comment on above: Order Comment: Speci men Type: ARTERIAL BLOOD SPECIMEN [facility] Address: [address] [place] [address] Performed By: #### A LLBG #### [facility] CLIA [id number] [address] [place] [address] [place] Neutrophils/100 WBC (Bld) 76.0 % Normal [facility] Comment on above: Order Comment: Speci men Type: ARTERIAL BLOOD SPECIMEN [facility] Address: [address] [place] [address] Performed By: #### A LLBG #### [facility] CLIA [id number] [address] [place] [address] [place] [facility] [place] Nucleated RBC (Bld) [#/Vol] 10*3/uL Normal <0.01 [facility] Comment on above: Order Comment: Speci men Type: ARTERIAL BLOOD SPECIMEN [facility] Address: [address] [place] [address] Performed By: #### A LLBG #### [facility] CLIA [id number] [address] [place] [address] [place] Nucleated RBC/100 WBC (Bld) [Ratio] 0.0 /100 WBC Normal [facility] Comment on above: Order Comment: Speci men Type: ARTERIAL BLOOD SPECIMEN [facility] Address: [address] [place] [address] Performed By: #### A LLBG #### [facility] CLIA [id number] [address] [place] [address] [place] Ovalocytes LM Ql (Bld) Few Normal [facility] Comment on above: Order Comment: Speci men Type: ARTERIAL BLOOD SPECIMEN [facility] Address: [address] [place] [address] Performed By: #### A LLBG #### [facility] CLIA [id number] [address] [place] [address] [place] Platelet mean volume (Bld) [Entitic vol] 9.7 fL Normal 9.0-12.7 [facility] Comment on above: Order Comment: Speci men Type: ARTERIAL BLOOD SPECIMEN [facility] Address: [address] [place] [address] Performed By: #### A LLBG #### [facility] CLIA [id number] [address] [place] [address] [place] Platelets (Bld) [#/Vol] 95 10*3/uL Low 150-400 [facility] Comment on above: Order Comment: Speci men Type: ARTERIAL BLOOD SPECIMEN [facility] Address: [address] [place] [address] Result Comment: No c lot detected. Performed By: #### A LLBG #### [facility] CLIA [id number] [address] [place] [address] [place] Platelets Estimate (Bld) [#/Vol] Decreased Normal [facility] Comment on above: Order Comment: Speci men Type: ARTERIAL BLOOD SPECIMEN [facility] Address: [address] [place] [address] Performed By: #### A LLBG #### [facility] CLIA [id number] [address] [place] [address] [place] Polychromasia LM Ql (Bld) Slight Normal [facility] Comment on above: Order Comment: Speci men Type: ARTERIAL BLOOD SPECIMEN [facility] Address: [address] [place] [address] Performed By: #### A LLBG #### [facility] CLIA [id number] [address] [place] [address] [place] RBC (Bld) [#/Vol] 3.90 10*6/uL Normal 3.90-5.20 [facility] Comment on above: Order Comment: Speci men Type: ARTERIAL BLOOD SPECIMEN [facility] Address: [address] [place] [address] Performed By: #### A LLBG #### [facility] CLIA [id number] [address] [place] [address] [place] [employer] [place] Reviewed: see result s of individual morphologies Normal [facility] Comment on above: Order Comment: Speci men Type: ARTERIAL BLOOD SPECIMEN Ordering Facility: [facility] Address: [address] [place] [address] Performed By: #### A LLBG #### [facility] CLIA [id number] [address] [place], [place] [address] [place] WBC (Bld) [#/Vol] 12.59 10*3/uL High 3.70-11.00 [facility] Comment on above: Order Comment: Speci men Type: ARTERIAL BLOOD SPECIMEN Ordering Facility: [facility] Address: [address] [place] [address] [place] [address] Performed By: #### A LLBG #### [facility] CLIA [id number] [address] [place], [place] [address] [facility] CONSULT PROGon 11-22-2023 CONSULT PROG HNO ID: [id number] Author: SOHAIL WILLETT MD Service: Infectious Disease [...] November 22, 2023 TIME: 9:57 AM Normal [facility] Magnesium SerPl-mCncon 11-22 Magnesium [Mass/Vol] 1.9 mg/dL Normal 1.6-2.6 [facility] Comment on above: Order Comment: Speci men Type: ARTERIAL BLOOD SPECIMEN Ordering Facility: [facility] Address: [address] [place] [address] Performed By: #### A LLBG #### [facility] CLIA [id number] [address] [place] [address] OF [facility] BF MANUAL DIFFon 11-21-2023 DIF TTL, BODY FLUID 100 cells counted Normal [facility] Comment on above: Order Comment: Speci men Type: ARTERIAL BLOOD SPECIMEN Ordering Facility: [facility] Address: [address] [place] [address] Performed By: #### A LLBG #### [facility] CLIA [id number] [address] [place] [address] [place] LYMPH%, BF 67 % High 18-36 [facility] Comment on above: Order Comment: Speci men Type: ARTERIAL BLOOD SPECIMEN Ordering Facility: [facility] Address: [address] [place] [address] Performed By: #### A LLBG #### [facility] CLIA [id number] [address] [place] [address] [place] MONO% BF 18 % Normal [facility] Comment on above: Order Comment: Speci men Type: ARTERIAL BLOOD SPECIMEN Ordering Facility: [facility] Address: [address] [place] [address] Performed By: #### A LLBG #### [facility] CLIA [id number] [address] [place] [address] [place] NEUT%, BF 15 % High 0-1 [facility] Comment on above: Order Comment: Speci men Type: ARTERIAL BLOOD SPECIMEN Ordering Facility: [facility] Address: [address] [place] [address] Performed By: #### A LLBG #### [facility] CLIA [id number] [address] [place] [address] BF STAFF REVIEW (LAB ORDER)o n 11-21-2023 BF REVIEW Reviewed by Donny Miguel DO [facility] Comment on above: Order Comment: Speci men Type: ARTERIAL BLOOD SPECIMEN Ordering Facility: [facility] Address: [address] [place] [address] Performed By: #### A LLBG #### [facility] CLIA [id number] [address] [place] [address] BF STAFF COMMENTS [facility] Comment on above: Order Comment: Speci men Type: ARTERIAL BLOOD SPECIMEN Ordering Facility: [facility] Address: [address] [place] [address] Result Comment: CYTO PREP INTERPRETATION: Mixed inflammatory cells including histiocytes/macrophages and mesothelial cells. 11/22/2023. Performed By: #### A LLBG #### [facility] CLIA [id number] [address] [place] [address] BODY FLUID CELL COUNTon 10-28 Clarity (Unsp spec) Clear Normal Clear [facility] Comment on above: Order Comment: Speci men Type: ARTERIAL BLOOD SPECIMEN Ordering Facility: [facility] Address: [address] [place] [address] Performed By: #### A LLBG #### [facility] CLIA [id number] [address] [place] [address] OF [place] Color (Body fld) Yellow Normal Yellow [facility] Comment on above: Order Comment: Speci men Type: ARTERIAL BLOOD SPECIMEN Ordering Facility: [facility] Address: [address] [place] [address] Performed By: #### A LLBG #### [facility] CLIA [id number] [address] [place] [address] [place] RBC Manual cnt (Body fld) [#/Vol] <2000 Normal <2000 [facility] Comment on above: Order Comment: Speci men Type: ARTERIAL BLOOD SPECIMEN Ordering Facility: [facility] Address: [address] [place] [address] Performed By: #### A LLBG #### [facility] CLIA [id number] [address] [place] [address] Specimen source Nom (Body fld) ASCITES FLUID Normal [facility] Comment on above: Order Comment: Speci men Type: ARTERIAL BLOOD SPECIMEN Ordering Facility: [facility] Address: [address] [place] [address] Performed By: #### A LLBG #### [facility] CLIA [id number] [address] [place] [address] [place] WBC Manual cnt (Body fld) [#/Vol] 433 /uL Normal <1000 [facility] Comment on above: Order Comment: Speci men Type: ARTERIAL BLOOD SPECIMEN Ordering Facility: [facility] Address: [address] [place] [address] Performed By: #### A LLBG #### [facility] CLIA [id number] [address] [place] [address] OF [place] Bacteria Fld Culton 11-21-19 24 Bacteria identified Cx Nom (Body fld) CULTURE, BODY FLD: No growth 5 days GRAM STAIN: Moderate Polymorphonuclear leukocytes No organisms seen Normal [facility] Comment on above: Performed By: #### 3 2693-4 #### [facility] CLIA [id number] [address] [place] [address] [place] Basic metabolic 2000 panelon 11-21-2023 Anion gap [Moles/Vol] 4 mmol/L Low 5-16 [facility] Comment on above: Order Comment: Speci men Type: BLOOD SPECIMEN Ordering Facility: [facility] Address: [address] [place] [address] Performed By: #### 2 4323-8, 33599-7 #### [facility] CLIA [id number] [address] [place] [address] [place] Calcium [Mass/Vol] 9.4 mg/dL Normal 8.5-10.5 [facility] Comment on above: Order Comment: Speci men Type: BLOOD SPECIMEN Ordering Facility: [facility] Address: [address] [place] [address] [place] [address] Performed By: #### 2 4323-8, #### [facility] CLIA [id number] [address] [place] [address] [place] Chloride [Moles/Vol] 106 mmol/L Normal 98-107 [facility] Comment on above: Order Comment: Speci men Type: BLOOD SPECIMEN Ordering Facility: [facility] Address: [address] [place] [address] Performed By: #### 2 4323-8, #### [facility] CLIA [id number] [address] [place] [address] [place] CO2 [Moles/Vol] 27 mmol/L Normal 21-32 [facility] Comment on above: Order Comment: Speci men Type: BLOOD SPECIMEN Ordering Facility: [facility] Address: [address] [place] [address] Performed By: #### 2 4323-8, #### [facility] CLIA [id number] [address] [place], [place] [address] [place] Creatinine [Mass/Vol] 0.73 mg/dL Normal 0.51-0.95 [facility] Comment on above: Order Comment: Speci men Type: BLOOD SPECIMEN Ordering Facility: [facility] Address: [address] [place] [address] Result Comment: Tamie ents receiving either N-Acetylcysteine (NAC) or Metamizole prior to venipuncture, may have falsely depressed results. Performed By: #### 2 4323-8, #### [facility] CLIA [id number] [address] [place], [place] [address] [place] Creatinine and Glomerular filtration rate.predicted panel (S/P/Bld) 100 mL/min/1.73m??? Normal >=60 [facility] Comment on above: Order Comment: Speci men Type: BLOOD SPECIMEN Ordering Facility: [facility] Address: [address] [place] [address] Result Comment: Connie mated Glomerular Filtration Rate [...] actual GFR. Performed By: #### 2 4323-8, 86461-2 #### [facility] CLIA [id number] [address] [place] [address] [place] Glucose [Mass/Vol] 133 mg/dL High 70-100 [facility] Comment on above: Order Comment: Cole lamas Type: BLOOD SPECIMEN Ordering Facility: [facility] Address: [address] [place] [address] Result Comment: The [place] [employer] (ADA) provides guidance for cutoff [...] Standards of Medical Care in Diabetes 2016, [place] [employer]. Diabetes Care. 2016.39(Suppl 1). Results may be falsely elevated after the administration of Sulfapyridine. Results may be falsely depressed after the administration of Sulfasalazine. Performed By: #### 2 4323-8, #### [facility] CLIA [id number] [address] [place], [place] [address] [place] Potassium [Moles/Vol] 4.6 mmol/L Normal 3.5-5.1 [facility] Comment on above: Order Comment: Cole lamas Type: BLOOD SPECIMEN Ordering Facility: [facility] Address: [address] [place] [address] Performed By: #### 2 4323-8, #### [facility] CLIA [id number] [address] [place] [address] [place] Sodium [Moles/Vol] 137 mmol/L Normal 136-145 [facility] Comment on above: Order Comment: Speci men Type: BLOOD SPECIMEN Ordering Facility: [facility] Address: [address] [place] [address] Performed By: #### 2 4323-8, #### [facility] CLIA [id number] [address] [place] [address] [place] Urea nitrogen [Mass/Vol] 21 mg/dL Normal - [facility] Comment on above: Order Comment: Speci men Type: BLOOD SPECIMEN Ordering Facility: [facility] Address: [address] [place] [address] Performed By: #### 2 4323-8, #### [facility] CLIA [id number] [address] [place] [address] [place] CBC W Auto Differential pane l (Bld)on 11-21-2023 Anisocytosis Ql (Bld) Present Normal [facility] Comment on above: Order Comment: Speci men Type: BLOOD SPECIMEN Ordering Facility: [facility] Address: [address] [place] [address] Performed By: #### 2 4323-8, #### [facility] CLIA [id number] [address] [place] [address] [place] Band form neutrophils/100 WBC (Bld) 2.0 % Normal [facility] Comment on above: Order Comment: Speci men Type: BLOOD SPECIMEN Ordering Facility: [facility] Address: [address] [place] [address] Performed By: #### 2 4323-8, #### [facility] CLIA [id number] [address] [place] [address] [place] Basophils (Bld) [#/Vol] 0.00 10*3/uL Normal <0.11 [facility] Comment on above: Order Comment: Speci men Type: BLOOD SPECIMEN Ordering Facility: [facility] Address: [address] [place] [address] Performed By: #### 2 4323-04, #### [facility] CLIA [id number] [address] [place], [place] [address] [place] Basophils/100 WBC (Bld) 0.0 % Normal [facility] Comment on above: Order Comment: Speci men Type: BLOOD SPECIMEN Ordering Facility: [facility] Address: [address] [place] [address] Performed By: #### 2 4323-04, #### [facility] CLIA [id number] [address] [place], [place] [address] [place] Differential cell count method Nom (Bld) Manual Normal [facility] Comment on above: Order Comment: Speci men Type: BLOOD SPECIMEN Ordering Facility: [facility] Address: [address] [place] [address] Performed By: #### 2 4323-04, #### [facility] CLIA [id number] [address] [place], [place] [address] [place] Eosinophils (Bld) [#/Vol] 0.00 10*3/uL Normal <0.46 [facility] Comment on above: Order Comment: Speci men Type: BLOOD SPECIMEN Ordering Facility: [facility] Address: [address] [place] [address] Performed By: #### 2 4323-04, #### [facility] CLIA [id number] [address] [place], [place] [address] [place] Eosinophils/100 WBC (Bld) 0.0 % Normal [facility] Comment on above: Order Comment: Speci men Type: BLOOD SPECIMEN Ordering Facility: [facility] Address: [address] [place] [address] Performed By: #### 2 43212-01, #### [facility] CLIA [id number] [address] [place], [place] [address] [place] Erythrocyte distribution width (RBC) [Ratio] 25.2 % High 11.5-15.0 [facility] Comment on above: Order Comment: Speci men Type: BLOOD SPECIMEN Ordering Facility: [facility] Address: [address] [place] [id number] Performed By: #### 2 4323-8, #### [facility] CLIA [id number] [address] [place] [address] [place] Hematocrit (Bld) [Volume fraction] 25.6 % Low 36.0-46.0 [facility] Comment on above: Order Comment: Speci men Type: BLOOD SPECIMEN Ordering Facility: [facility] Address: [address] [place] [address] Performed By: #### 2 432-8, #### [facility] CLIA [id number] [address] [place] [address] [place] Hemoglobin (Bld) [Mass/Vol] 8.2 g/dL Low 11.5-15.5 [facility] Comment on above: Order Comment: Speci men Type: BLOOD SPECIMEN Ordering Facility: [facility] Address: [address] [place] [address] Performed By: #### 2 4323-8, #### [facility] CLIA [id number] [address] [place] [address] [place] Lymphocytes (Bld) [#/Vol] 0.72 10*3/uL Low 1.00-4.00 [facility] Comment on above: Order Comment: Speci men Type: BLOOD SPECIMEN Ordering Facility: [facility] Address: [address] [place] [address] Performed By: #### 2 4323-8, #### [facility] CLIA [id number] [address] [place], [place] [address] [place] Lymphocytes/100 WBC (Bld) 4.0 % Normal [facility] Comment on above: Order Comment: Speci men Type: BLOOD SPECIMEN Ordering Facility: [facility] Address: [address] [place], [place] [address] Performed By: #### 2 4323-8, #### [facility] CLIA [id number] [address] [place] [address] [place] MCH (RBC) [Entitic mass] 24.6 pg Low 26.0-34.0 [facility] Comment on above: Order Comment: Speci men Type: BLOOD SPECIMEN Ordering Facility: [facility] Address: [address] [place] [address] Performed By: #### 2 4328, #### [facility] CLIA [id number] [address] [place] [address] [place] MCHC (RBC) [Mass/Vol] 32.0 g/dL Normal 30.5-36.0 [facility] Comment on above: Order Comment: Speci men Type: BLOOD SPECIMEN Ordering Facility: [facility] Address: [address] [place] [address] Performed By: #### 2 4328, #### [facility] CLIA [id number] [address] [place] [address] [place] MCV (RBC) [Entitic vol] 76.6 fL Low 80.0-100.0 [facility] Comment on above: Order Comment: Speci men Type: BLOOD SPECIMEN Ordering Facility: [facility] Address: [address] [place] [address] Performed By: #### 2 4328, #### [facility] CLIA [id number] [address] [place] [address] [place] Metamyelocytes/100 WBC (Bld) 1.0 % Normal [facility] Comment on above: Order Comment: Speci men Type: BLOOD SPECIMEN Ordering Facility: [facility] Address: [address] [place] [address] Performed By: #### 2 4328, #### [facility] CLIA [id number] [address] [place] [address] [place] Monocytes (Bld) [#/Vol] 0.89 10*3/uL High <0.87 [facility] Comment on above: Order Comment: Speci men Type: BLOOD SPECIMEN Ordering Facility: [facility] Address: [address] [place] [address] Performed By: #### 2 4323-8, #### [facility] CLIA [id number] [address] [place] [address] [place] Monocytes/100 WBC (Bld) 5.0 % Normal [facility] Comment on above: Order Comment: Speci men Type: BLOOD SPECIMEN Ordering Facility: [facility] Address: [address] [place] [address] Performed By: #### 2 4323-8, #### [facility] CLIA [id number] [address] [place], [place] [address] [place] Neutrophils (Bld) [#/Vol] 16.09 10*3/uL High 1.45-7.50 [facility] Comment on above: Order Comment: Speci men Type: BLOOD SPECIMEN Ordering Facility: [facility] Address: [address] [place] [address] Performed By: #### 2 4323-8, #### [facility] CLIA [id number] [address] [place], [place] [address] [place] Neutrophils.hypersegme nted LM Ql (Bld) Occasional Normal [facility] Comment on above: Order Comment: Speci men Type: BLOOD SPECIMEN Ordering Facility: [facility] Address: [address] [place] [address] Performed By: #### 2 4323-8, #### [facility] CLIA [id number] [address] [place], [place] [address] [place] Neutrophils/100 WBC (Bld) 88.0 % Normal [facility] Comment on above: Order Comment: Speci men Type: BLOOD SPECIMEN Ordering Facility: [facility] Address: [address] [place] [address] Performed By: #### 2 4323-8, #### [facility] CLIA [id number] [address] [place], [place] [address] [place] Nucleated RBC (Bld) [#/Vol] 10*3/uL Normal <0.01 [facility] Comment on above: Order Comment: Speci men Type: BLOOD SPECIMEN Ordering Facility: [facility] Address: [address] [place] [address] Performed By: #### 2 4323-8, #### [facility] CLIA [id number] [address] [place] [address] [place] Nucleated RBC/100 WBC (Bld) [Ratio] 0.0 /100 WBC Normal [facility] Comment on above: Order Comment: Speci men Type: BLOOD SPECIMEN Ordering Facility: [facility] Address: [address] [place] [address] Performed By: #### 2 4323-8, #### [facility] CLIA [id number] [address] [place] [address] [place] Ovalocytes LM Ql (Bld) Few Normal [facility] Comment on above: Order Comment: Speci men Type: BLOOD SPECIMEN Ordering Facility: [facility] Address: [address] [place] [address] Performed By: #### 2 4323-8, #### [facility] CLIA [id number] [address] [place], [place] [address] [place] Platelet mean volume (Bld) [Entitic vol] Normal [facility] Comment on above: Order Comment: Speci men Type: BLOOD SPECIMEN Ordering Facility: [facility] Address: [address] [place] [address] Result Comment: Unab le to Report. Performed By: #### 2 4323-8, #### [facility] CLIA [id number] [address] [place] [address] [place] Platelets (Bld) [#/Vol] 91 10*3/uL Low 150-400 [facility] Comment on above: Order Comment: Speci men Type: BLOOD SPECIMEN Ordering Facility: [facility] Address: [address] [place] [address] Result Comment: No c lot detected. Performed By: #### 2 432-8, #### [facility] CLIA [id number] [address] [place] [address] [place] Platelets Estimate (Bld) [#/Vol] Decreased Normal [facility] Comment on above: Order Comment: Speci men Type: BLOOD SPECIMEN Ordering Facility: [facility] Address: [address] [place] [address] Performed By: #### 2 8, #### [facility] CLIA [id number] [address] [place] [address] [place] Polychromasia LM Ql (Bld) Slight Normal [facility] Comment on above: Order Comment: Speci men Type: BLOOD SPECIMEN Ordering Facility: [facility] Address: [address] [place] [address] Performed By: #### 2 8, #### [facility] CLIA [id number] [address] [place] [address] [place] RBC (Bld) [#/Vol] 3.34 10*6/uL Low 3.90-5.20 [facility] Comment on above: Order Comment: Speci men Type: BLOOD SPECIMEN Ordering Facility: [facility] Address: [address] [place] [address] Performed By: #### 2 432-8, #### [facility] CLIA [id number] [address] [place] [address] [place] RED CELL MORPH Reviewed: see result s of individual morphologies Normal [facility] Comment on above: Order Comment: Speci men Type: BLOOD SPECIMEN Ordering Facility: [facility] Address: [address] [place] [address] Performed By: #### 2 432-8, #### [facility] CLIA [id number] [address] [place] [address] [place] WBC (Bld) [#/Vol] 17.88 10*3/uL High 3.70-11.00 [facility] Comment on above: Order Comment: Speci men Type: BLOOD SPECIMEN Ordering Facility: [facility] Address: [facility] [place] [address] Performed By: #### 2 4323-8, 92869-1 #### [facility] CLIA [id number] [address] [place] [address] [facility] [place] CONSULTon 11-21-2023 CONSULT HNO ID: [id number] Author: SOHAIL WILLETT MD Service: Infectious Disease [...] polysubstance abuse, hx of MRSA, presented to [facility] with abdominal distention and encephalopathy, transferred to [facility] for further evaluation and paracentesis. After [...] Pt says she had a paracentesis at [facility] ER several days ago. She had influenza B about 2 weeks ago. Has been in and out of the hospital in [place]. She complains of a throbbing headache this [...] PAST SURGICAL HISTORY OF 2018 liver bx [facility] FAMILY HISTORY Problem Relation Age of [...] mg O (more content not included)... Normal [facility] Magnesium [facility] 11-21 Magnesium [Mass/Vol] 2.1 mg/dL Normal 1.6-2.6 [facility] Comment on above: Order Comment: Speci men Type: BLOOD SPECIMEN Ordering Facility: [facility] Address: [address] [place], [place] [address] [address] Performed By: #### 2 4323-8, 97498-8 #### [facility] CLIA [id number] [address] [place] [address] [place] Prot Fld-[facility] 11-21-2023 Protein (Body fld) [Mass/Vol] g/dL Normal See Comment [facility] Comment on above: Order Comment: Speci men Type: ARTERIAL BLOOD SPECIMEN Ordering Facility: [facility] Address: [address] [place] [address] Result Comment: The reference range and other method performance specifications have not been established for this fluid test. The test result should be integrated into the clinical context for interpretation. Performed By: #### A LLBG #### [facility] CLIA [id number] [id number] [facility] US PARACENTESIS BIon 024 US [...] anesthesia. Paracentesis was performed utilizing a 5 Rwandan multiholed centesis catheter. Ultrasound confirmed needle position within the fluid and image documenting needle position was recorded in PACS. Paracentesis was performed in the right side of the abdomen. 2.2 L yellow ascitic fluid was removed. Postparacentesis scanning shows no significant residual in the region. Patient tolerated the procedure well without immediate apparent complication. IMPRESSION: Uncomplicated ultrasound-guided paracentesis Wireless Team Member: PSCB Transcribe Date/Time: Nov 21 2023 3:05P Dictated by : SANDRA LEDESMA MD This examination was interpreted and the report reviewed and electronically signed by: SANDRA LEDESMA MD on Nov 21 2023 3:06PM EST [id number] Normal [facility] ARTERIAL BLOOD GASESon 11-20 Base excess Calc (Bld) [Moles/Vol] 1 mmol/L Normal 0-2 [facility] Comment on above: Order Comment: Speci men Type: BLOOD SPECIMEN Ordering Facility: [facility] Address: [address] [place] [address] Performed By: #### 2 4323-8, #### [facility] CLIA [id number] [address] [place], [place] [address] [place] Body temperature 98.6 [degF] Normal [facility] Comment on above: Order Comment: Speci men Type: BLOOD SPECIMEN Ordering Facility: [facility] Address: [address] [place] [address] Performed By: #### 2 4323-8, #### [facility] CLIA [id number] [address] [place] [address] [place] Calcium.ionized (Bld) [Mass/Vol] 1.17 mmol/L Normal 1.08-1.30 [facility] Comment on above: Order Comment: Speci men Type: BLOOD SPECIMEN Ordering Facility: [facility] Address: [address] [place] [address] Performed By: #### 2 4323-8, #### [facility] CLIA [id number] [address] [place] [address] [place] Carboxyhemoglobin (BldA) [Mass fraction] 0.7 % Normal 0.0-2.0 [facility] Comment on above: Order Comment: Speci men Type: BLOOD SPECIMEN Ordering Facility: [facility] Address: [address] [place], [place] [id number] Result Comment: Carb oxyhemoglobin Reference Range for Smokers: 2.0-8.0% Performed By: #### 2 4323-8, #### [facility] CLIA [id number] [address] [place] [address] [place] CO2 (Bld) [Partial pressure] 37 mm Hg Normal 36-46 [facility] Comment on above: Order Comment: Speci men Type: BLOOD SPECIMEN Ordering Facility: [facility] Address: [address] [id number] Performed By: #### 2 4323-8, #### [facility] CLIA [id number] [address] [place] [address] [place] Glucose [Mass/Vol] 123 mg/dL High 60-105 [facility] Comment on above: Order Comment: Speci men Type: BLOOD SPECIMEN Ordering Facility: [facility] Address: [address] [place] [address] Performed By: #### 2 8, #### [facility] CLIA [id number] [address] [place] [address] [place] HCO3 (Bld) [Moles/Vol] 25 mmol/L Normal 22-26 [facility] Comment on above: Order Comment: Speci men Type: BLOOD SPECIMEN Ordering Facility: [facility] Address: [address] [place] [address] Performed By: #### 2 4328, #### [facility] CLIA [id number] [address] [place], [place] [address] [place] Hemoglobin (Bld) [Mass/Vol] 9.3 g/dL Low 11.5-15.5 [facility] Comment on above: Order Comment: Speci men Type: BLOOD SPECIMEN Ordering Facility: [facility] Address: [facility] [place] [address] Performed By: #### 2 8, #### [facility] CLIA [id number] [address] [place] [address] [place] Lactate [Moles/Vol] 2.0 mmol/L Normal 0.5-2.2 [facility] Comment on above: Order Comment: Speci men Type: BLOOD SPECIMEN Ordering Facility: [facility] Address: [address] [place], [place] [address] Performed By: #### 2 4323-8, #### [facility] CLIA [id number] [address] [place] [address] [place] Methemoglobin (Bld) [Mass fraction] 0.3 % Normal 0.0-1.5 [facility] Comment on above: Order Comment: Speci men Type: BLOOD SPECIMEN Ordering Facility: [facility] Address: [address] [place] [address] Performed By: #### 2 4323-8, #### [facility] CLIA [id number] [address] [place], [place] [address] [place] O2 THERAPY NC = Nasal Cannula Normal [facility] Comment on above: Order Comment: Yeseniai men Type: BLOOD SPECIMEN Ordering Facility: [facility] Address: [address] [place] [address] Performed By: #### 2 432-8, #### [facility] CLIA [id number] [address] [place], [place] [address] [place] Oxygen (Bld) [Partial pressure] 84 mm Hg Low 85-95 [facility] Comment on above: Order Comment: Speci men Type: BLOOD SPECIMEN Ordering Facility: [facility] Address: [address] [place] [address] Performed By: #### 2 4323-8, #### [facility] CLIA [id number] [address] [place], [place] [address] [place] Oxyhemoglobin (BldA) [Mass fraction] 95 % Normal 95-98 [facility] Comment on above: Order Comment: Speci men Type: BLOOD SPECIMEN Ordering Facility: [facility] Address: [address] [place] [address] Performed By: #### 2 4323-8, #### [facility] CLIA [id number] [address] [place], [place] [address] [place] pH (Bld) 7.45 [pH] Normal 7.35-7.45 [facility] Comment on above: Order Comment: Speci men Type: BLOOD SPECIMEN Ordering Facility: [facility] Address: [address] [place] [address] Performed By: #### 2 4323-8, #### [facility] CLIA [id number] [address] [place] [address] [place] Potassium [Moles/Vol] 4.4 mmol/L Normal 2.5-6.0 [facility] Comment on above: Order Comment: Speci men Type: BLOOD SPECIMEN Ordering Facility: [facility] Address: [address] [place] [address] Performed By: #### 2 432-8, #### [facility] CLIA [id number] [address] [place] [address] [place] Sodium [Moles/Vol] 130 mmol/L Low 136-144 [facility] Comment on above: Order Comment: Speci men Type: BLOOD SPECIMEN Ordering Facility: [facility] Address: [address] [place] [address] Performed By: #### 2 43238, #### [facility] CLIA [id number] [address] [place] [address] [place] CBC W Auto Differential pane l (Bld)on 11-20-2023 Anisocytosis Ql (Bld) Present Normal [facility] Comment on above: Order Comment: Speci men Type: BLOOD SPECIMEN Ordering Facility: [facility] Address: [address] [place] [address] Performed By: #### 2 4323-8, #### [facility] CLIA [id number] [address] [place] [address] [place] Band form neutrophils/100 WBC (Bld) 3.0 % Normal [facility] Comment on above: Order Comment: Speci men Type: BLOOD SPECIMEN Ordering Facility: [facility] Address: [address] [place] [address] Performed By: #### 2 4323-8, #### [facility] CLIA [id number] [address] [place] [address] [place] Basophils (Bld) [#/Vol] 0.00 10*3/uL Normal <0.11 [facility] Comment on above: Order Comment: Speci men Type: BLOOD SPECIMEN Ordering Facility: [facility] Address: [address] [place] [address] Performed By: #### 2 8, #### [facility] CLIA [id number] [address] [place] [address] [place] Basophils/100 WBC (Bld) 0.0 % Normal [facility] Comment on above: Order Comment: Speci men Type: BLOOD SPECIMEN Ordering Facility: [facility] Address: [address] [place] [address] Performed By: #### 2 4323-04, #### [facility] CLIA [id number] [address] [place], [place] [address] [place] Differential cell count method Nom (Bld) Manual Normal [facility] Comment on above: Order Comment: Speci men Type: BLOOD SPECIMEN Ordering Facility: [facility] Address: [address] [place] [address] Performed By: #### 2 8, #### [facility] CLIA [id number] [address] [place], [place] [address] [place] Eosinophils (Bld) [#/Vol] 0.00 10*3/uL Normal <0.46 [facility] Comment on above: Order Comment: Speci men Type: BLOOD SPECIMEN Ordering Facility: [facility] Address: [address] [place] [address] Performed By: #### 2 4323-04, #### [facility] CLIA [id number] [address] [place], [place] [address] [place] Eosinophils/100 WBC (Bld) 0.0 % Normal [facility] Comment on above: Order Comment: Speci men Type: BLOOD SPECIMEN Ordering Facility: [facility] Address: [address] [place] [address] Performed By: #### 2 4328, #### [facility] CLIA [id number] [address] [place] [address] [place] Erythrocyte distribution width (RBC) [Ratio] 24.6 % High 11.5-15.0 [facility] Comment on above: Order Comment: Speci men Type: BLOOD SPECIMEN Ordering Facility: [facility] Address: [address] [place] [address] Performed By: #### 2 4323-8, #### [facility] CLIA [id number] [address] [place] [address] [place] Hematocrit (Bld) [Volume fraction] 26.5 % Low 36.0-46.0 [facility] Comment on above: Order Comment: Speci men Type: BLOOD SPECIMEN Ordering Facility: [facility] Address: [address] [place] [address] Performed By: #### 2 4323-8, #### [facility] CLIA [id number] [address] [place] [address] [place] Hemoglobin (Bld) [Mass/Vol] 8.3 g/dL Low 11.5-15.5 [facility] Comment on above: Order Comment: Speci men Type: BLOOD SPECIMEN Ordering Facility: [facility] Address: [address] [place] [address] Performed By: #### 2 4323-8, #### [facility] CLIA [id number] [address] [place] [address] [place] Lymphocytes (Bld) [#/Vol] 0.31 10*3/uL Low 1.00-4.00 [facility] Comment on above: Order Comment: Speci men Type: BLOOD SPECIMEN Ordering Facility: [facility] Address: [address] [place] [address] Performed By: #### 2 4323-8, #### [facility] CLIA [id number] [address] [place] [address] [place] Lymphocytes/100 WBC (Bld) 2.0 % Normal [facility] Comment on above: Order Comment: Speci men Type: BLOOD SPECIMEN Ordering Facility: [facility] Address: [address] [place], [place] [id number] Performed By: #### 2 4328, #### [facility] CLIA [id number] [address] [place] [address] STATES [facility] MCH (RBC) [Entitic mass] 23.9 pg Low 26.0-34.0 [facility] Comment on above: Order Comment: Speci men Type: BLOOD SPECIMEN Ordering Facility: [facility] Address: [address] [place] [address] Performed By: #### 2 4328, #### [facility] CLIA [id number] [address] [place] [address] [place] MCHC (RBC) [Mass/Vol] 31.3 g/dL Normal 30.5-36.0 [facility] Comment on above: Order Comment: Speci men Type: BLOOD SPECIMEN Ordering Facility: [facility] Address: [address] [place] [address] Performed By: #### 2 4328, #### [facility] CLIA [id number] [address] [place] [address] [place] MCV (RBC) [Entitic vol] 76.1 fL Low 80.0-100.0 [facility] Comment on above: Order Comment: Speci men Type: BLOOD SPECIMEN Ordering Facility: [facility] Address: [address] [place] [address] Performed By: #### 2 4328, #### [facility] CLIA [id number] [address] [place] [address] Metamyelocytes/100 WBC (Bld) 1.0 % Normal [facility] Comment on above: Order Comment: Speci men Type: BLOOD SPECIMEN Ordering Facility: [facility] Address: [address] [place] [address] Performed By: #### 2 43212-01, #### [facility] CLIA [id number] [address] [place] [address] [place] Monocytes (Bld) [#/Vol] 0.94 10*3/uL High <0.87 [facility] Comment on above: Order Comment: Speci men Type: BLOOD SPECIMEN Ordering Facility: [facility] Address: [address] [place] [address] Performed By: #### 2 4323-8, #### [facility] CLIA [id number] [address] [place], [place] [address] [place] Monocytes/100 WBC (Bld) 6.0 % Normal [facility] Comment on above: Order Comment: Speci men Type: BLOOD SPECIMEN Ordering Facility: [facility] Address: [address] [place] [address] Performed By: #### 2 4323-8, #### [facility] CLIA [id number] [address] [place] [address] [place] Neutrophils (Bld) [#/Vol] 14.24 10*3/uL High 1.45-7.50 [facility] Comment on above: Order Comment: Speci men Type: BLOOD SPECIMEN Ordering Facility: [facility] Address: [address] [place] [address] Performed By: #### 2 4323-8, #### [facility] CLIA [id number] [address] [place] [address] [place] Neutrophils.hypersegme nted LM Ql (Bld) Occasional Normal [facility] Comment on above: Order Comment: Speci men Type: BLOOD SPECIMEN Ordering Facility: [facility] Address: [address] [place] [address] Performed By: #### 2 4323-8, #### [facility] CLIA [id number] [address] [place], [place] [address] [place] Neutrophils/100 WBC (Bld) 88.0 % Normal [facility] Comment on above: Order Comment: Speci men Type: BLOOD SPECIMEN Ordering Facility: [facility] Address: [address] [place] [address] Performed By: #### 2 4323-8, #### [facility] CLIA [id number] [address] [place] [address] [place] Nucleated RBC (Bld) [#/Vol] 10*3/uL Normal <0.01 [facility] Comment on above: Order Comment: Speci men Type: BLOOD SPECIMEN Ordering Facility: [facility] Address: [address] [place] [address] Performed By: #### 2 4323-8, #### [facility] CLIA [id number] [address] [place] [address] [place] Nucleated RBC/100 WBC (Bld) [Ratio] 0.0 /100 WBC Normal [facility] Comment on above: Order Comment: Speci men Type: BLOOD SPECIMEN Ordering Facility: [facility] Address: [address] [place] [address] Performed By: #### 2 4323-8, #### [facility] CLIA [id number] [address] [place] [address] [place] Ovalocytes LM Ql (Bld) Few Normal [facility] Comment on above: Order Comment: Speci men Type: BLOOD SPECIMEN Ordering Facility: [facility] Address: [address] [place] [address] Performed By: #### 2 4323-8, #### [facility] CLIA [id number] [address] [place], [place] [address] [place] Platelet mean volume (Bld) [Entitic vol] 9.9 fL Normal 9.0-12.7 [facility] Comment on above: Order Comment: Speci men Type: BLOOD SPECIMEN Ordering Facility: [facility] Address: [address] [place] [address] Performed By: #### 2 4323-8, #### [facility] CLIA [id number] [address] [place] [address] [place] Platelets (Bld) [#/Vol] 78 10*3/uL Low 150-400 [facility] Comment on above: Order Comment: Speci men Type: BLOOD SPECIMEN Ordering Facility: [facility] Address: [address] [place] [address] Result Comment: No c lot detected. Performed By: #### 2 4323-8, 96851-3 #### [facility] CLIA [id number] [address] [place] [address] [place] Platelets Estimate (Bld) [#/Vol] Decreased Normal [facility] Comment on above: Order Comment: Speci men Type: BLOOD SPECIMEN Ordering Facility: [facility] Address: [address] [place] [address] Performed By: #### 2 4323-8, #### [facility] CLIA [id number] [address] [place] [address] [place] Polychromasia LM Ql (Bld) Slight Normal [facility] Comment on above: Order Comment: Speci men Type: BLOOD SPECIMEN Ordering Facility: [facility] Address: [address] [place] [address] Performed By: #### 2 4323-8, #### [facility] CLIA [id number] [address] [place] [address] [place] RBC (Bld) [#/Vol] 3.48 10*6/uL Low 3.90-5.20 [facility] Comment on above: Order Comment: Speci men Type: BLOOD SPECIMEN Ordering Facility: [facility] Address: [address] [place] [address] Performed By: #### 2 4323-8, #### [facility] CLIA [id number] [address] [place] [address] [place] RED CELL MORPH Reviewed: see result s of individual morphologies Normal [facility] Comment on above: Order Comment: Speci men Type: BLOOD SPECIMEN Ordering Facility: [facility] Address: [address] [place] [address] Performed By: #### 2 4323-8, 81301-6 #### [facility] CLIA [id number] [address] [place], [place] [address] [place] WBC (Bld) [#/Vol] 15.65 10*3/uL High 3.70-11.00 [facility] Comment on above: Order Comment: Speci men Type: BLOOD SPECIMEN Ordering Facility: [facility] Address: [address] [place], [place] [address] Performed By: #### 2 4323-8, #### [facility] CLIA [id number] [address] [place], [place] [address] [place] Calcium.ionized [Moles/Vol]o n 11-20-2023 Calcium.ionized (Bld) [Mass/Vol] 1.17 mmol/L Normal 1.16-1.32 [facility] Comment on above: Order Comment: Speci men Type: BLOOD SPECIMEN Ordering Facility: [facility] Address: [address] [place], [place] [address] Performed By: #### 2 4323-8, #### [facility] CLIA [id number] [address] [place], [place] [address] [place] Comprehensive metabolic 2000 panelon 11-20-2023 Albumin [Mass/Vol] 2.4 g/dL Low 3.2-5.0 [facility] Comment on above: Order Comment: Speci men Type: BLOOD SPECIMEN Ordering Facility: [facility] Address: [address] [place], [place] [id number] Result Comment: DELT A CHECK Performed By: #### 2 4323-8, #### [facility] CLIA [id number] [address] [place], [place] [address] [place] ALP [Catalytic activity/Vol] 130 U/L High 45-117 [facility] Comment on above: Order Comment: Speci men Type: BLOOD SPECIMEN Ordering Facility: [facility] Address: [address] [place] [address] Performed By: #### 2 8, #### [facility] CLIA [id number] [address] [place] [address] [place] ALT [Catalytic activity/Vol] 32 U/L Normal 13-61 [facility] Comment on above: Order Comment: Speci men Type: BLOOD SPECIMEN Ordering Facility: [facility] Address: [address] [place] [address] Result Comment: Resu lts may be falsely depressed after the administration of Sulfasalazine and/or Sulfapyridine. Performed By: #### 2 4323-04, #### [facility] CLIA [id number] [address] [place], [place] [address] [place] Anion gap [Moles/Vol] 3 mmol/L Low 5-16 [facility] Comment on above: Order Comment: Speci men Type: BLOOD SPECIMEN Ordering Facility: [facility] Address: [address] [place] [address] Performed By: #### 2 4323-04, #### [facility] CLIA [id number] [address] [place] [address] [place] AST [Catalytic activity/Vol] 76 U/L High 8-34 [facility] Comment on above: Order Comment: Speci men Type: BLOOD SPECIMEN Ordering Facility: [facility] Address: [address] [place] [address] Result Comment: Resu lts may be falsely depressed after the administration of Sulfasalazine and/or Sulfapyridine. Performed By: #### 2 4323-04, #### [facility] CLIA [id number] [address] [place] [address] [place] Bilirubin [Mass/Vol] 2.2 mg/dL High 0.2-1.0 [facility] Comment on above: Order Comment: Speci men Type: BLOOD SPECIMEN Ordering Facility: [facility] Address: [address] [place] [address] Performed By: #### 2 4328, #### [facility] CLIA [id number] [address] [place] [address] [place] Calcium [Mass/Vol] 8.9 mg/dL Normal 8.5-10.5 [facility] Comment on above: Order Comment: Speci men Type: BLOOD SPECIMEN Ordering Facility: [facility] Address: [address] [place] [address] Performed By: #### 2 4323-8, #### [facility] CLIA [id number] [address] [place] [address] [place] Chloride [Moles/Vol] 102 mmol/L Normal 98-107 [facility] Comment on above: Order Comment: Speci men Type: BLOOD SPECIMEN Ordering Facility: [facility] Address: [address] [place] [address] Performed By: #### 2 4323-8, #### [facility] CLIA [id number] [address] [place] [address] [place] CO2 [Moles/Vol] 28 mmol/L Normal 21-32 [facility] Comment on above: Order Comment: Speci men Type: BLOOD SPECIMEN Ordering Facility: [facility] Address: [address] [place] [address] Performed By: #### 2 4323-8, #### [facility] CLIA [id number] [address] [place] [address] [place] Creatinine [Mass/Vol] 0.95 mg/dL Normal 0.51-0.95 [facility] Comment on above: Order Comment: Speci men Type: BLOOD SPECIMEN Ordering Facility: [facility] Address: [address] [place] [address] Result Comment: Tamie ents receiving either N-Acetylcysteine (NAC) or Metamizole prior to venipuncture, may have falsely depressed results. Performed By: #### 2 4323-8, #### [facility] CLIA [id number] [address] [place] [address] [place] Creatinine and Glomerular filtration rate.predicted panel (S/P/Bld) 73 mL/min/1.73m??? Normal >=60 [facility] Comment on above: Order Comment: Cole lamas Type: BLOOD SPECIMEN Ordering Facility: [facility] Address: [address] [place] [address] Result Comment: Connie mated Glomerular Filtration Rate [...] actual GFR. Performed By: #### 2 4323-8, 79778-3 #### [facility] CLIA [id number] [address] [place], [place] [address] [place] Glucose [Mass/Vol] 141 mg/dL High 70-100 [facility] Comment on above: Order Comment: Cole lamas Type: BLOOD SPECIMEN Ordering Facility: [facility] Address: [address] [place] [address] Result Comment: The [place] [employer] (ADA) provides guidance for cutoff [...] Standards of Medical Care in Diabetes 2016, [place] [employer]. Diabetes Care. 2016.39(Suppl 1). Results may be falsely elevated after the administration of Sulfapyridine. Results may be falsely depressed after the administration of Sulfasalazine. Performed By: #### 2 4323-8, 03325-6 #### [facility] CLIA [id number] [address] [place], [place] [address] [place] Potassium [Moles/Vol] 4.9 mmol/L Normal 3.5-5.1 [facility] Comment on above: Order Comment: Speci men Type: BLOOD SPECIMEN Ordering Facility: [facility] Address: [address] [place], [place] [id number] Performed By: #### 2 4323-8, #### [facility] CLIA [id number] [address] [place], [place] [address] [place] Protein [Mass/Vol] 7.0 g/dL Normal 6.0-8.5 [facility] Comment on above: Order Comment: Speci men Type: BLOOD SPECIMEN Ordering Facility: [facility] Address: [address] [place] [address] Performed By: #### 2 4323-8, #### [facility] CLIA [id number] [address] [place] [address] [place] Sodium [Moles/Vol] 133 mmol/L Low 136-145 [facility] Comment on above: Order Comment: Speci men Type: BLOOD SPECIMEN Ordering Facility: [facility] Address: [address] [place] [address] Performed By: #### 2 4323-8, #### [facility] CLIA [id number] [address] [place], [place] [address] [place] Urea nitrogen [Mass/Vol] 20 mg/dL Normal 7-26 [facility] Comment on above: Order Comment: Speci men Type: BLOOD SPECIMEN Ordering Facility: [facility] Address: [address] [place] [address] Performed By: #### 2 4323-8, #### [facility] CLIA [id number] [address] [place], [place] [address] [place] Lactate (Bld) [Moles/Vol]on 11-20-2023 Lactate [Moles/Vol] 4.2 mmol/L High 0.4-2.0 [facility] Comment on above: Order Comment: Speci men Type: BLOOD SPECIMEN Ordering Facility: [facility] Address: [address] [place] [address] Result Comment: CALL CRITICAL Performed By: #### 2 4323-8, #### [facility] CLIA [id number] [address] [place], [place] [address] [place] Lactate [Moles/Vol] 2.8 mmol/L High 0.4-2.0 [facility] Comment on above: Order Comment: Speci men Type: BLOOD SPECIMEN Ordering Facility: [facility] Address: [address] [place] [address] Performed By: #### 2 4323-8, #### [facility] CLIA [id number] [address] [place] [address] [place] Lactate [Moles/Vol] 3.1 mmol/L High 0.4-2.0 [facility] Comment on above: Order Comment: Speci men Type: BLOOD SPECIMEN Ordering Facility: [facility] Address: [address] [place] [address] Performed By: #### 2 4323-8, #### [facility] CLIA [id number] [address] [place] [address] [place] Magnesium SerPl-mCncon 11-20 Magnesium [Mass/Vol] 1.9 mg/dL Normal 1.6-2.6 [facility] Comment on above: Order Comment: Speci men Type: BLOOD SPECIMEN Ordering Facility: [facility] Address: [address] [place] [address] Performed By: #### 2 4323-8, #### [facility] CLIA [id number] [address] [place], [place] [address] [place] PT panel Coag (PPP)on 2023 INR Coag (PPP) [Relative time] 2.3 {INR} High 0.9-1.3 [facility] Comment on above: Order Comment: Speci men Type: BLOOD SPECIMEN Ordering Facility: [facility] Address: [address] [place] [address] Result Comment: Roma min K Antagonist (VKA) Therapeutic Range: INR 2 to 3 (Target INR of 2.5) Note: For patients treated with VKA drugs, such as warfarin, the [place] [employer] 2012 Guideline recommends [...] Chest 2012, 141:7S-47S Diomedes RA, et al. [facility] 2017, 70: 252-289 Performed By: #### 2 4323-8, #### [facility] CLIA [id number] [address] [place] [address] [place] PT Coag (PPP) [Time] 23.1 s High 9.7-13.0 [facility] Comment on above: Order Comment: Specchyna lamas Type: BLOOD SPECIMEN Ordering Facility: [facility] Address: [address] [place] [address] Performed By: #### 2 4323-8, #### [facility] CLIA [id number] [address] [place] [address] [place] Phosphate SerPl-mCncon 11-20 Phosphate [Mass/Vol] 2.5 mg/dL Normal 2.5-4.9 [facility] Comment on above: Order Comment: Speci cydney Type: BLOOD SPECIMEN Ordering Facility: [facility] Address: [address] [place] [address] Result Comment: Elev ated m-protein (paraprotein) levels in the serum may be exhibited in patients with monoclonal gammopathies, causing falsely elevated inorganic phosphorus results. Performed By: #### 2 4323-8, #### [facility] CLIA [id number] [address] [place] [address] OF [facility] THERAPY NTon 11-20-2023 THERAPY NT HNO ID: [id number] Author: DEV RODRIGUEZ RRT Service: Respiratory Therapy Author Type: Registered Resp Therapist Type: Therapy (PT/OT/Speech/Resp) Filed: 11/20/2023 01:26 Note Text: Pt ripped off mask and stated she couldn't breathe RN told her how important it was for her to wear at this time due to O2 issues. Pt will not go back on at this time. Normal [facility] XR CHEST 1V FRONTALon 2023 XR [...] fluid. No pneumothorax. IMPRESSION: No significant change. Wireless Team Member: PSCB Transcribe Date/Time: Nov 20 2023 7:04A Dictated by : JEAN CARLOS BLANC MD This examination was interpreted and the report reviewed and electronically signed by: JEAN CARLOS BLANC MD on Nov 20 2023 7:04AM EST [id number] [facility] aPTT PPPon 11-20-2023 aPTT Coag (PPP) [Time] 45.7 s High 23.0-32.4 [facility] Comment on above: Order Comment: Speci men Type: BLOOD SPECIMEN Ordering Facility: [facility] Address: [address] [place] [address] [place] [address] Performed By: #### 2 4323-8, 13676-1 #### [facility] CLIA [id number] [address] [place], [place] [address] [facility] BLOOD GASESon 11-19 Base deficit (BldA) [Moles/Vol] -3 mmol/L Low -2-0 [facility] Comment on above: Order Comment: Speci men Type: BLOOD SPECIMEN Ordering Facility: [facility] Address: [address] [place] [address] Performed By: #### 5 8410-2 #### [facility] CLIA [id number] [address] [place] [address] [place] Body temperature 98.6 [degF] Normal [facility] Comment on above: Order Comment: Speci men Type: BLOOD SPECIMEN Ordering Facility: [facility] Address: [address] [place] [address] Performed By: #### 5 8410-2 #### [facility] CLIA [id number] [address] [place] [address] [place] Calcium.ionized (Bld) [Mass/Vol] 1.17 mmol/L Normal 1.08-1.30 [facility] Comment on above: Order Comment: Speci men Type: BLOOD SPECIMEN Ordering Facility: [facility] Address: [address] [place] [address] Performed By: #### 5 8410-2 #### [facility] CLIA [id number] [address] [place] [address] [place] Carboxyhemoglobin (BldA) [Mass fraction] 0.9 % Normal 0.0-2.0 [facility] Comment on above: Order Comment: Speci men Type: BLOOD SPECIMEN Ordering Facility: [facility] Address: [address] [place] [address] Result Comment: Carb oxyhemoglobin Reference Range for Smokers: 2.0-8.0% Performed By: #### 5 8410-2 #### [facility] CLIA [id number] [address] [place] [address] [place] CO2 (Bld) [Partial pressure] 40 mm Hg Normal 36-46 [facility] Comment on above: Order Comment: Speci men Type: BLOOD SPECIMEN Ordering Facility: [facility] Address: [address] [place] [address] Performed By: #### 5 8410-2 #### [facility] CLIA [id number] [address] [place], [place] [address] [place] FIO2 40 % Normal [facility] Comment on above: Order Comment: Speci men Type: BLOOD SPECIMEN Ordering Facility: [facility] Address: [address] [place] [address] Performed By: #### 5 8410-2 #### [facility] CLIA [id number] [address] [place] [address] [place] Glucose [Mass/Vol] 86 mg/dL Normal 60-105 [facility] Comment on above: Order Comment: Speci men Type: BLOOD SPECIMEN Ordering Facility: [facility] Address: [address] [place] [address] Performed By: #### 5 8410-2 #### [facility] CLIA [id number] [address] [place] [address] [place] HCO3 (Bld) [Moles/Vol] 23 mmol/L Normal 22-26 [facility] Comment on above: Order Comment: Speci men Type: BLOOD SPECIMEN Ordering Facility: [facility] Address: [address] [place] [address] Performed By: #### 5 8410-2 #### [facility] CLIA [id number] [address] [place] [address] [place] Hemoglobin (Bld) [Mass/Vol] 10.9 g/dL Low 11.5-15.5 [facility] Comment on above: Order Comment: Speci men Type: BLOOD SPECIMEN Ordering Facility: [facility] Address: [address] [place] [address] Performed By: #### 5 8410-2 #### [facility] CLIA [id number] [address] [place] [address] [place] Lactate [Moles/Vol] 2.1 mmol/L Normal 0.5-2.2 [facility] Comment on above: Order Comment: Speci men Type: BLOOD SPECIMEN Ordering Facility: [facility] Address: [address] [place] [id number] Performed By: #### 5 8410-2 #### [facility] CLIA [id number] [address] [place] [address] [place] Methemoglobin (Bld) [Mass fraction] 0.2 % Normal 0.0-1.5 [facility] Comment on above: Order Comment: Speci men Type: BLOOD SPECIMEN Ordering Facility: [facility] Address: [address] [place] [address] Performed By: #### 5 8410-2 #### [facility] CLIA [id number] [address] [place] [address] [place] O2 THERAPY Positive Normal [facility] Comment on above: Order Comment: Speci men Type: BLOOD SPECIMEN Ordering Facility: [facility] Address: [address] [place] [address] Performed By: #### 5 8410-2 #### [facility] CLIA [id number] [address] [place] [address] [place] Oxygen (Bld) [Partial pressure] 79 mm Hg Low 85-95 [facility] Comment on above: Order Comment: Speci men Type: BLOOD SPECIMEN Ordering Facility: [facility] Address: [address] [place] [address] Performed By: #### 5 8410-2 #### [facility] CLIA [id number] [address] [place] [address] [place] Oxyhemoglobin (BldA) [Mass fraction] 94 % Low 95-98 [facility] Comment on above: Order Comment: Speci men Type: BLOOD SPECIMEN Ordering Facility: [facility] Address: [address] [place] [address] Performed By: #### 5 8410-2 #### [facility] CLIA [id number] [address] [place], [place] [address] [place] pH (Bld) 7.37 [pH] Normal 7.35-7.45 [facility] Comment on above: Order Comment: Speci men Type: BLOOD SPECIMEN Ordering Facility: [facility] Address: [address] [place] [id number] Performed By: #### 5 8410-2 #### [facility] CLIA [id number] [address] [place] [address] [place] PO2 / FIO2 RATIO 198 mmHg Low >300 [facility] Comment on above: Order Comment: Speci men Type: BLOOD SPECIMEN Ordering Facility: [facility] Address: [address] [place] [address] Performed By: #### 5 8410-2 #### [facility] CLIA [id number] [address] [place] [address] [place] Potassium [Moles/Vol] 4.4 mmol/L Normal 2.5-6.0 [facility] Comment on above: Order Comment: Speci men Type: BLOOD SPECIMEN Ordering Facility: [facility] Address: [address] [place] [address] Performed By: #### 5 8410-2 #### [facility] CLIA [id number] [address] [place] [address] [place] Sodium [Moles/Vol] 134 mmol/L Low 136-144 [facility] Comment on above: Order Comment: Speci men Type: BLOOD SPECIMEN Ordering Facility: [facility] Address: [address] [place] [address] Performed By: #### 5 8410-2 #### [facility] CLIA [id number] [address] [place] [address] [place] Base deficit (BldA) [Moles/Vol] -6 mmol/L Low -2-0 [facility] Comment on above: Order Comment: Speci men Type: ARTERIAL BLOOD SPECIMEN Ordering Facility: [facility] Address: [address] [place] [address] Performed By: #### A LLBG #### [facility] CLIA [id number] [address] [place] [address] [place] Body temperature 98.6 [degF] Normal [facility] Comment on above: Order Comment: Speci men Type: ARTERIAL BLOOD SPECIMEN Ordering Facility: [facility] Address: [address] [place] [address] Performed By: #### A LLBG #### [facility] CLIA [id number] [address] [place] [address] [place] Calcium.ionized (Bld) [Mass/Vol] 1.22 mmol/L Normal 1.08-1.30 [facility] Comment on above: Order Comment: Speci men Type: ARTERIAL BLOOD SPECIMEN Ordering Facility: [facility] Address: [address] [place] [address] Performed By: #### A LLBG #### [facility] CLIA [id number] [address] [place] [address] [place] Calcium.ionized adjusted to pH 7.4 (BldA) [Moles/Vol] Normal [facility] Comment on above: Order Comment: Speci men Type: ARTERIAL BLOOD SPECIMEN Ordering Facility: [facility] Address: [address] [place] [address] Result Comment: Latrice ured pH is <7.20. Unable to report normalized Calcium. Performed By: #### A LLBG #### [facility] [place] [id number] [address] [place] [address] [place] Carboxyhemoglobin (BldA) [Mass fraction] 0.5 % Normal 0.0-2.0 [facility] Comment on above: Order Comment: Speci men Type: ARTERIAL BLOOD SPECIMEN Ordering Facility: [facility] Address: [address] [place] [address] Result Comment: Carb oxyhemoglobin Reference Range for Smokers: 2.0-8.0% Performed By: #### A LLBG #### [facility] CLIA [id number] [address] [place] [address] [place] CO2 (Bld) [Partial pressure] 65 mm Hg High 36-46 [facility] Comment on above: Order Comment: Speci men Type: ARTERIAL BLOOD SPECIMEN Ordering Facility: [facility] Address: [address] [place] [address] Performed By: #### A LLBG #### [facility] CLIA [id number] [address] [place] [address] [place] FIO2 100.0 % Normal [facility] Comment on above: Order Comment: Speci men Type: ARTERIAL BLOOD SPECIMEN Ordering Facility: [facility] Address: [address] [place] [address] Performed By: #### A LLBG #### [facility] CLIA [id number] [address] [place] [address] [place] Glucose [Mass/Vol] 107 mg/dL High 60-105 [facility] Comment on above: Order Comment: Speci men Type: ARTERIAL BLOOD SPECIMEN Ordering Facility: [facility] Address: [address] [place] [address] Performed By: #### A LLBG #### [facility] CLIA [id number] [address] [place] [address] [place] HCO3 (Bld) [Moles/Vol] 24 mmol/L Normal 22-26 [facility] Comment on above: Order Comment: Speci men Type: ARTERIAL BLOOD SPECIMEN Ordering Facility: [facility] Address: [address] [place] [address] Performed By: #### A LLBG #### [facility] CLIA [id number] [address] [place] [address] [place] Hemoglobin (Bld) [Mass/Vol] 12.0 g/dL Normal 11.5-15.5 [facility] Comment on above: Order Comment: Speci men Type: ARTERIAL BLOOD SPECIMEN Ordering Facility: [facility] Address: [address] [place] [address] Performed By: #### A LLBG #### [facility] CLIA [id number] [address] [place] [address] [place] Lactate [Moles/Vol] 5.2 mmol/L High 0.5-2.2 [facility] Comment on above: Order Comment: Speci men Type: ARTERIAL BLOOD SPECIMEN Ordering Facility: [facility] Address: [address] [place] [address] Performed By: #### A LLBG #### [facility] CLIA [id number] [address] [place] [address] [place] Methemoglobin (Bld) [Mass fraction] 0.1 % Normal 0.0-1.5 [facility] Comment on above: Order Comment: Speci men Type: ARTERIAL BLOOD SPECIMEN Ordering Facility: [facility] Address: [address] [place] [address] Performed By: #### A LLBG #### [facility] CLIA [id number] [address] [place] [address] [place] O2 THERAPY NR=Non-Rebreather Mask Normal [facility] Comment on above: Order Comment: Speci men Type: ARTERIAL BLOOD SPECIMEN Ordering Facility: [facility] Address: [address] [place] [address] Performed By: #### A LLBG #### [facility] CLIA [id number] [address] [place] [address] [place] Oxygen (Bld) [Partial pressure] 78 mm Hg Low 85-95 [facility] Comment on above: Order Comment: Speci men Type: ARTERIAL BLOOD SPECIMEN Ordering Facility: [facility] Address: [address] [place] [address] Performed By: #### A LLBG #### [facility] CLIA [id number] [address] [place] [address] [place] Oxyhemoglobin (BldA) [Mass fraction] 90 % Low 95-98 [facility] Comment on above: Order Comment: Speci men Type: ARTERIAL BLOOD SPECIMEN Ordering Facility: [facility] Address: [address] [place] [address] Performed By: #### A LLBG #### [facility] CLIA [id number] [address] [place] [address] [place] pH (Bld) 7.18 [pH] Critically low 7.35-7.45 [facility] Comment on above: Order Comment: Speci men Type: ARTERIAL BLOOD SPECIMEN Ordering Facility: [facility] Address: [address] [place] [address] Performed By: #### A LLBG #### [facility] CLIA [id number] [address] [place] [address] STATES [facility] PO2 / FIO2 RATIO 78 mmHg Low >300 [facility] Comment on above: Order Comment: Speci men Type: ARTERIAL BLOOD SPECIMEN Ordering Facility: [facility] Address: [address] [place] [address] Performed By: #### A LLBG #### [facility] CLIA [id number] [address] [place] [address] [place] Potassium [Moles/Vol] 4.0 mmol/L Normal 2.5-6.0 [facility] Comment on above: Order Comment: Speci men Type: ARTERIAL BLOOD SPECIMEN Ordering Facility: [facility] Address: [address] [place] [address] Performed By: #### A LLBG #### [facility] CLIA [id number] [address] [place] [address] [place] Sodium [Moles/Vol] 136 mmol/L Normal 136-144 [facility] Comment on above: Order Comment: Speci men Type: ARTERIAL BLOOD SPECIMEN Ordering Facility: [facility] Address: [address] [place] [address] Performed By: #### A LLBG #### [facility] IA [id number] [address] [place] [address] [place] Ammonia Plas-sCncon 11-19-19 24 Ammonia (P) [Moles/Vol] 20 umol/L Normal 11-32 [facility] Comment on above: Order Comment: Speci men Type: BLOOD SPECIMEN Ordering Facility: [facility] Address: [address] [place] [address] Result Comment: Resu lts may be falsely depressed after the administration of Sulfapyridine. Results may be falsely elevated after the administration of Sulfasalazine. Performed By: #### 1 6362-6 #### [facility] CLIA [id number] [address] [place] [address] [place] Bacteria Bld Culton 11-19-19 24 Bacteria identified Cx Nom (Bld) CULTURE, BLOOD: No growth 5 days Normal [facility] Comment on above: Performed By: #### 6 00-7 ####[facility] [id number] [address] Bacteria identified Cx Nom (Bld) CULTURE, BLOOD: No growth 5 days Normal [facility] Comment on above: Performed By: #### 6 00-7 ####[facility]IA [id number] [address] CBC panel Auto (Bld)on 11-19 Erythrocyte distribution width (RBC) [Ratio] 24.2 % High 11.5-15.0 [facility] Comment on above: Order Comment: Speci men Type: BLOOD SPECIMEN Ordering Facility: [facility] Address: [address] [place] [address] Performed By: #### 5 8410-2 #### [facility] CLIA [id number] [address] [place] [address] [place] Hematocrit (Bld) [Volume fraction] 30.3 % Low 36.0-46.0 [facility] Comment on above: Order Comment: Speci cydney Type: BLOOD SPECIMEN Ordering Facility: [facility] Address: [address] [place] [address] Performed By: #### 5 8410-2 #### [facility] CLIA [id number] [address] [place] [address] [place] Hemoglobin (Bld) [Mass/Vol] 9.4 g/dL Low 11.5-15.5 [facility] Comment on above: Order Comment: Speci men Type: BLOOD SPECIMEN Ordering Facility: [facility] Address: [address] [place] [address] Performed By: #### 5 8410-2 #### [facility] CLIA [id number] [address] [place] [address] [place] MCH (RBC) [Entitic mass] 23.6 pg Low 26.0-34.0 [facility] Comment on above: Order Comment: Speci men Type: BLOOD SPECIMEN Ordering Facility: [facility] Address: [address] [place] [address] Performed By: #### 5 8410-2 #### [facility] CLIA [id number] [address] [place] [address] [place] MCHC (RBC) [Mass/Vol] 31.0 g/dL Normal 30.5-36.0 [facility] Comment on above: Order Comment: Speci men Type: BLOOD SPECIMEN Ordering Facility: [facility] Address: [address] [place] [address] Performed By: #### 5 8410-2 #### [facility] CLIA [id number] [address] [place] [address] [place] MCV (RBC) [Entitic vol] 76.1 fL Low 80.0-100.0 [facility] Comment on above: Order Comment: Speci men Type: BLOOD SPECIMEN Ordering Facility: [facility] Address: [address] [place] [address] Performed By: #### 5 8410-2 #### [facility] CLIA [id number] [address] [place] [address] [place] Nucleated RBC (Bld) [#/Vol] 10*3/uL Normal <0.01 [facility] Comment on above: Order Comment: Speci men Type: BLOOD SPECIMEN Ordering Facility: [facility] Address: [address] [place] [address] Performed By: #### 5 8410-2 #### [facility] CLIA [id number] [address] [place] [address] [place] Platelet mean volume (Bld) [Entitic vol] Normal [facility] Comment on above: Order Comment: Speci men Type: BLOOD SPECIMEN Ordering Facility: [facility] Address: [address] [place] [address] Result Comment: Unab le to Report. Performed By: #### 5 8410-2 #### [facility] CLIA [id number] [address] [place] [address] [place] [facility] [place] Platelets (Bld) [#/Vol] 80 10*3/uL Low 150-400 [facility] Comment on above: Order Comment: Cole lamas Type: BLOOD SPECIMEN Ordering Facility: [facility] Address: [address] [place] [address] Result Comment: Resu lts checked and verified.No clot detected. Performed By: #### 5 8410-2 #### [facility] CLIA [id number] [address] [place] [address] [place] RBC (Bld) [#/Vol] 3.98 10*6/uL Normal 3.90-5.20 [facility] Comment on above: Order Comment: Cole lamas Type: BLOOD SPECIMEN Ordering Facility: [facility] Address: [address] [place] [address] Performed By: #### 5 8410-2 #### [facility] CLIA [id number] [address] [place] [address] [place] WBC (Bld) [#/Vol] 13.45 10*3/uL High 3.70-11.00 [facility] Comment on above: Order Comment: Cole lamas Type: BLOOD SPECIMEN Ordering Facility: [facility] Address: [address] [place] [address] Performed By: #### 5 8410-2 #### [facility] CLIA [id number] [address] [place] [address] [place] CONSULTon 11-19-2023 CONSULT HNO ID: [id number] Author: MARIAH TRAVIS APRN.MONUMENTAL STONEMASON Service: Critical Care Author Type: Nurse Practitioner Type: Consults Filed: 11/19/2023 11:45 Note Text: [facility] SERVICE DATE: November 19, 2023 SERVICE TIME: 0800 Consulting Doctor: Dr. Molina CHIEF COMPLAINT: AMS HPI: This 48 year old female initially presented to [facility] emergency department for abdominal pain, patient met sepsis criteria and required paracentesis rule out SBP which is not available at this hospital therefore she was transferred to [facility]. This morning a rapid response was [...] PAST SURGICAL HISTORY OF 2018 liver bx [facility] FAMILY HISTORY Problem Relation Age of [...] tightness and shortness (more content not included)... [facility] CT ABD/PEL W IVCONon 024 CT ABD/PEL W IVCON * * *Final Report* * * DATE OF EXAM: Nov 19 2023 7:15AM [facility] 0530 - CT ABD/PEL W IVCON [...] the bilateral lungs, greater on the left. Events Assistant (topogram) images: No additional findings. IMPRESSION: 1. [...] bowel, likely reactive to ascites. Dictated by Management Information Systems Director: Arun Mena MD I, Sam Henderson MD, have supervised the procedure and/or image review, and agree with the above interpretation and report. Wireless Team Member: POOJA Transcribe Date/Time: Nov 19 2023 7:18A Dictated by : ARUN MENA, This examination was interpreted and the report reviewed and electronically signed by: SAM HENDERSON MD on Nov 19 2023 7:54AM EST [id number] Normal [facility] Comprehensive metabolic 2000 panelon 11-19-2023 Albumin [Mass/Vol] 1.9 g/dL Low 3.2-5.0 [facility] Comment on above: Order Comment: Cole lamas Type: BLOOD SPECIMEN Ordering Facility: [facility] Address: [address] [place] [address] Performed By: #### 2 4328, #### [facility] CLIA [id number] [address] [place] [address] [place] ALP [Catalytic activity/Vol] 158 U/L High 45-117 [facility] Comment on above: Order Comment: Cole lamas Type: BLOOD SPECIMEN Ordering Facility: [facility] Address: [address] [place] [address] Performed By: #### 2 4323-8, #### [facility] CLIA [id number] [address] [place] [address] [place] ALT [Catalytic activity/Vol] 31 U/L Normal 13-61 [facility] Comment on above: Order Comment: Cole lamas Type: BLOOD SPECIMEN Ordering Facility: [facility] Address: [address] [place] [address] Result Comment: Resu lts may be falsely depressed after the administration of Sulfasalazine and/or Sulfapyridine. Performed By: #### 2 4323-8, 42333-3 #### [facility] CLIA [id number] [address] [place] [address] [place] Anion gap [Moles/Vol] 3 mmol/L Low 5-16 [facility] Comment on above: Order Comment: Cole lamas Type: BLOOD SPECIMEN Ordering Facility: [facility] Address: [address] [place] [address] Performed By: #### 2 4323-8, 97006-4 #### [facility] CLIA [id number] [address] [place] [address] [place] AST [Catalytic activity/Vol] 65 U/L High 8-34 [facility] Comment on above: Order Comment: Cole lamas Type: BLOOD SPECIMEN Ordering Facility: [facility] Address: [address] [place] [address] Result Comment: Resu lts may be falsely depressed after the administration of Sulfasalazine and/or Sulfapyridine. Performed By: #### 2 4323-8, #### [facility] CLIA [id number] [address] [place] [address] [place] Bilirubin [Mass/Vol] 2.2 mg/dL High 0.2-1.0 [facility] Comment on above: Order Comment: Cole lamas Type: BLOOD SPECIMEN Ordering Facility: [facility] Address: [address] [place] [address] Performed By: #### 2 4323-8, #### [facility] CLIA [id number] [address] [place], [place] [address] [place] Calcium [Mass/Vol] 8.5 mg/dL Normal 8.5-10.5 [facility] Comment on above: Order Comment: Speci men Type: BLOOD SPECIMEN Ordering Facility: [facility] Address: [address] [place], [place] [address] Performed By: #### 2 4323-8, #### [facility] CLIA [id number] [address] [place] [address] [place] Chloride [Moles/Vol] 106 mmol/L Normal 98-107 [facility] Comment on above: Order Comment: Speci men Type: BLOOD SPECIMEN Ordering Facility: [facility] Address: [address] [place] [address] Performed By: #### 2 4323-8, #### [facility] CLIA [id number] [address] [place] [address] [place] CO2 [Moles/Vol] 28 mmol/L Normal 21-32 [facility] Comment on above: Order Comment: Speci men Type: BLOOD SPECIMEN Ordering Facility: [facility] Address: [address] [place] [address] Performed By: #### 2 4323-8, #### [facility] CLIA [id number] [address] [place] [address] [place] Creatinine [Mass/Vol] 0.68 mg/dL Normal 0.51-0.95 [facility] Comment on above: Order Comment: Speci men Type: BLOOD SPECIMEN Ordering Facility: [facility] Address: [address] [place], [place] [address] Result Comment: Tamie ents receiving either N-Acetylcysteine (NAC) or Metamizole prior to venipuncture, may have falsely depressed results. Performed By: #### 2 4323-8, #### [facility] CLIA [id number] [address] [place] [address] [place] Creatinine and Glomerular filtration rate.predicted panel (S/P/Bld) 106 mL/min/1.73m??? Normal >=60 [facility] Comment on above: Order Comment: Speci men Type: BLOOD SPECIMEN Ordering Facility: [facility] Address: [address] [place] [address] Result Comment: Connie mated Glomerular Filtration Rate [...] actual GFR. Performed By: #### 2 4323-8, 38912-8 #### [facility] CLIA [id number] [address] [place] [address] [place] Glucose [Mass/Vol] 89 mg/dL Normal 70-100 [facility] Comment on above: Order Comment: Cole lamas Type: BLOOD SPECIMEN Ordering Facility: [facility] Address: [address] [place] [address] Result Comment: The [place] [employer] (ADA) provides guidance for cutoff [...] Standards of Medical Care in Diabetes 2016, [place] [employer]. Diabetes Care. 2016.39(Suppl 1). Results may be falsely elevated after the administration of Sulfapyridine. Results may be falsely depressed after the administration of Sulfasalazine. Performed By: #### 2 4323-8, 12931-4 #### [facility] CLIA [id number] [address] [place], [place] [address] [place] Potassium [Moles/Vol] 4.1 mmol/L Normal 3.5-5.1 [facility] Comment on above: Order Comment: Cole lamas Type: BLOOD SPECIMEN Ordering Facility: [facility] Address: [address] [place], [place] [address] Performed By: #### 2 4323-8, #### [facility] CLIA [id number] [address] [place], [place] [address] [place] Protein [Mass/Vol] 6.8 g/dL Normal 6.0-8.5 [facility] Comment on above: Order Comment: Speci men Type: BLOOD SPECIMEN Ordering Facility: [facility] Address: [address] [place] [address] Performed By: #### 2 432-8, #### [facility] CLIA [id number] [address] [place] [address] [place] Sodium [Moles/Vol] 137 mmol/L Normal 136-145 [facility] Comment on above: Order Comment: Speci men Type: BLOOD SPECIMEN Ordering Facility: [facility] Address: [address] [place] [address] Performed By: #### 2 4328, #### [facility] CLIA [id number] [address] [place], [place] [address] [place] Urea nitrogen [Mass/Vol] 11 mg/dL Normal 7-26 [facility] Comment on above: Order Comment: Speci men Type: BLOOD SPECIMEN Ordering Facility: [facility] Address: [address] [place] [address] Performed By: #### 2 4323-8, #### [facility] CLIA [id number] [address] [place] [address] [place] HCV RNA SerPl PHYLLIS+probe-aCnc on 11-19-2023 HCV RNA PHYLLIS+probe Qn Abnormal HCV RNA not detected by PCR. [facility] Comment on above: Order Comment: Speci men Type: BLOOD SPECIMEN Ordering Facility: [facility] Address: [address] [place] [address] Result Comment: HCV RNA detected by PCR. 75949 4.58 Performed By: #### 2 4323-8, #### [facility] CLIA [id number] [address] [place] [address] [place] HISTORY PHYSICALon HISTORY PHYSICAL HNO ID: [id number] Author: ELVIN MERAZ DO Service: Hospital Medicine [...] she has been evaluated multiple [facility] at [facility] for similar symptoms. Paracentesis has been [...] PAST SURGICAL HISTORY OF 2018 liver bx [facility] FAMILY HISTORY: FAMILY HISTORY Problem Relation [...] or br (more content not included)... Normal [facility] Iron and Iron binding capaci ty panelon 11-19-2023 Iron [Mass/Vol] 43 ug/dL Low 50-170 [facility] Comment on above: Order Comment: Cole lamas Type: BLOOD SPECIMEN Ordering Facility: [facility] Address: [address] [place] [address] Result Comment: Tamie ents treated with metal-binding drugs (e.g.deferoxamine) may have depressed iron values, as chelated iron may not properly react in the Siemens iron assay. Performed By: #### 3 3959-8, 49102-2 #### [facility] CLIA [id number] [address] [place] [address] [place] Iron binding capacity [Mass/Vol] 286 ug/dL Normal 221-481 [facility] Comment on above: Order Comment: Cole lamas Type: BLOOD SPECIMEN Ordering Facility: [facility] Address: [address] [place] [address] Performed By: #### 3 3959-8, 33000-9 #### [facility] CLIA [id number] [address] [place] [address] [place] Iron/TIBC [Molar ratio] 15.0 % Low 22.0-44.0 [facility] Comment on above: Order Comment: Speci men Type: BLOOD SPECIMEN Ordering Facility: [facility] Address: [address] [place] [address] Performed By: #### 3 3959-8, 40925-8 #### [facility] CLIA [id number] [address] [place] [address] [place] Lactate (Bld) [Moles/Vol]on 11-19-2023 Lactate [Moles/Vol] 5.3 mmol/L High 0.4-2.0 [facility] Comment on above: Order Comment: Speci men Type: BLOOD SPECIMEN Ordering Facility: [facility] Address: [address] [place] [address] Result Comment: CALL CRITICAL Performed By: #### 2 4323-8, 62303-5 #### [facility] CLIA [id number] [address] [place] [address] [place] Lactate [Moles/Vol] 2.9 mmol/L High 0.4-2.0 [facility] Comment on above: Order Comment: Speci men Type: BLOOD SPECIMEN Ordering Facility: [facility] Address: [address] [place] [address] Performed By: #### 5 8410-2 #### [facility] CLIA [id number] [address] [place] [address] [place] Lactate [Moles/Vol] 5.1 mmol/L High 0.4-2.0 [facility] Comment on above: Order Comment: Speci men Type: BLOOD SPECIMEN Ordering Facility: [facility] Address: [address] [place] [address] Result Comment: CALL CRITICAL Performed By: #### 3 2693-4 #### [facility] CLIA [id number] [address] [place] [address] [place] Legionella Ag Ur Qlon 2023 Legionella sp Ag Ql (U) Negative Normal Negative [facility] Comment on above: Order Comment: Speci men Type: BLOOD SPECIMEN Ordering Facility: [facility] Address: [address] [place], [place] [address], [place] [address] Performed By: #### 5 8410-2 #### [facility] CLIA [id number] [address] [place], [place] [address] [facility]2023 MEDICAL JACQUIE HNO ID: [id number] Author: JAMES LEO APRN.MONUMENTAL STONEMASON Service: Hospital Medicine Author Type: Nurse Practitioner [...] needed, move the patient to ICU. Normal [facility] Magnesium SerPl-mCncon 11-19 Magnesium [Mass/Vol] 1.5 mg/dL Low 1.6-2.6 [facility] Comment on above: Order Comment: Speci men Type: BLOOD SPECIMEN Ordering Facility: [facility]: [address] [place] [address] Performed By: #### 2 4323-8, 03102-5 #### [facility] CLIA [id number] [address] [place] [address] [place] Procalcitonin SerPl-mCncon 0 11-19-2023 Procalcitonin [Mass/Vol] 5.62 ng/mL High 0.00-0.50 [facility] Comment on above: Order Comment: Speci men Type: BLOOD SPECIMEN Ordering Facility: [facility] Address: [address] [place] [address] Result Comment: PCT Concentration Interpretation PCT <=0.1 [...] septic shock. Performed By: #### 3 3959-8, 24484-2 #### [facility] CLIA [id number] [address] [place] [address] [place] STREPTOCOCCUS PNEUMONIAE AGo n 11-19-2023 STREPTOCOCCUS PNEUMONIAE AG STREP PNEUMO AG RESULT: Negative for Streptococcus pneumoniae antigen. Presumptive negative for pneumococcal pneumonia, suggesting no current or recent pneumococcal infection. Infection due to S.pneumoniae cannot be ruled out since the antigen present in the sample may be below the detection limit of the test. Normal [facility] Comment on above: Performed By: #### 5 8410-2 #### [facility] CLIA [id number] [address] [place], [place] [address] [place] XR CHEST 1V [...] related to patient's garments. No definite pneumothorax Wireless Team [facility] Transcribe Date/Time: Nov 19 2023 8:47A Dictated by : SAM HENDERSON MD This examination was interpreted and the report reviewed and electronically signed by: SAM HENDERSON MD on Nov 19 2023 8:54AM EST [id number] [facility] HEALTHon 11-18-2023 [facility] HNO ID: [id number] Author: BROOKLYN COX RT(R) Service: Radiology Author Type: Technologist Type: Finding Something 3 Filed: 11/19/2023 07:14 Note Text: Summary: ct [...] PATIENT PRESENTS WITH AN IMPLANTABLE OR ATTACHED GAUGE CHECKER: No ALLERGIES: Reviewed and unchanged CONTRAST ALLERGY: [...] November 19, 2023 TIME: 7:14 AM Normal [facility] ED NOTEon 11-18-2023 ED NOTE HNO ID: [id number] Author: MIKE HUTCHISON RN Service: Emergency Medicine Author Type: Registered Nurse Type: ED Notes Filed: 11/18/2023 15:50 Note Text: Second attempt to call report made, placed back on hold Normal [facility] ED NOTE HNO ID: [id number] Author: MIKE HUTCHISON RN Service: Emergency Medicine Author Type: Registered Nurse Type: ED Notes Filed: 11/18/2023 15:49 Note Text: Attempted to call report on patient, placed on hold for 15 mins unable to give report. Normal [facility] ED NOTE HNO ID: [id number] Author: MIKE HUTCHISON RN Service: Emergency Medicine Author Type: Registered Nurse Type: ED Notes Filed: 11/18/2023 16:05 Note Text: Patient assisted to bedside toilet, clean depends given. Offered patient wipes to clean herself up with patient wiped hands and refused to clean rest of stool off. Transport at bedside for report. Normal [facility] ED NOTE HNO ID: [id number] Author: MIKE HUTCHISON, RN Service: Emergency Medicine Author Type: Registered Nurse Type: ED Notes Filed: 11/18/2023 14:15 Note Text: [facility] ETA: 60-90mins Normal [facility] ED NOTE HNO ID: [id number] Author: MIKE HUTCHISON RN Service: Emergency Medicine Author Type: Registered Nurse Type: ED Notes Filed: 11/18/2023 14:10 Note Text: Accepted to [address] 992-2 Nurse to Nurse [phone] [facility] ED NOTE HNO ID: [id number] Author: MIKE HUTCHISON RN Service: Emergency Medicine Author Type: Registered Nurse Type: ED Notes Filed: 11/18/2023 16:15 Note Text: 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 Patient then assisted back to bed. [facility] ED NOTE HNO ID: [id number] Author: MIKE HUTCHISON RN Service: Emergency Medicine Author Type: Registered Nurse Type: ED Notes Filed: 11/18/2023 09:16 Note Text: [facility] contacted by this nurse they state they are unsure when the patient will have a bed assignment. [facility] ED NOTE HNO ID: [id number] Author: MIKE HUTCHISON RN Service: Emergency Medicine Author Type: Registered Nurse Type: ED Notes Filed: 11/18/2023 16:08 Note Text: Patient had liquid BM in bed, patient assisted to bedside toilet bedding changed, clean gown given, depends given to patient, clean gown given, patient assisted back to bed. [facility] ED NOTE HNO ID: [id number] Author: MIKE HUTCHISON RN Service: Emergency Medicine Author Type: Registered Nurse Type: ED Notes Filed: 11/18/2023 09:23 Note Text: Respiratory paged for breathing treatment [facility] ED NOTE HNO ID: [id number] Author: MIKE HUTCHISON RN Service: Emergency Medicine [...] [facility] ED NOTE HNO ID: [id number] Author: MIKE HUTCHISON RN Service: Emergency Medicine Author Type: Registered Nurse Type: ED Notes Filed: 11/18/2023 09:19 Note Text: Patient requesting to walk to the restroom, patient assisted to the restroom [facility] ED NOTE HNO ID: [id number] Author: MIKE HUTCHISON RN Service: Emergency Medicine Author Type: Registered Nurse Type: ED Notes Filed: 11/18/2023 09:19 Note Text: Meal tray given [facility] ED NOTE HNO ID: [id number] Author: MIKE HUTCHISON RN Service: Emergency Medicine Author Type: Registered Nurse Type: ED Notes Filed: 11/18/2023 08:02 Note Text: This nurse woke patient up, patient repositioned. Oxygen placed back on. Meal tray ordered. Patient denies other needs at this time. [facility] ED NOTE HNO ID: [id number] Author: JIMI DOMINGUEZ, NASH Service: Emergency Medicine Author Type: Registered Nurse Type: ED Notes Filed: 11/18/2023 05:37 Note Text: Patient removed oxygen and will not keep pulse ox on. Call light remains in reach. SRx2 up. [facility] ED NOTE HNO ID: [id number] Author: JIMI DOMINGUEZ RN Service: Emergency Medicine Author Type: Registered Nurse Type: ED Notes Filed: 11/18/2023 05:08 Note Text: MD speaking with patient regarding pain control. [facility] ED NOTE HNO ID: [id number] Author: JIMI DOMINGUEZ RN Service: Emergency Medicine Author Type: Registered Nurse Type: ED Notes Filed: 11/18/2023 04:33 Note Text: Patient ambulatory to RR with steady gait- po fluids given. Call light in reach [facility] ED NOTE HNO ID: [id number] Author: JIMI DOMINGUEZ RN Service: Emergency Medicine Author Type: Registered Nurse Type: ED Notes Filed: 11/18/2023 02:50 Note Text: Oxygen sats improved with oxygen while resting/sleeping to 96% on 2 liters [facility] ED NOTE HNO ID: [id number] Author: JIMI DOMINGUEZ RN Service: Emergency Medicine Author Type: Registered Nurse Type: ED Notes Filed: 11/18/2023 02:47 Note Text: Patient falling asleep and oxygen sats drop to 87-88% - oxygen applied at 2 liters [facility] ED NOTE HNO ID: [id number] Author: JMII DOMINGUEZ RN Service: Emergency Medicine Author Type: Registered Nurse Type: ED Notes Filed: 11/18/2023 02:30 Note Text: 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 Advised patient she just had motrin at 2347. Patient requesting TV on. [facility] ED NOTE HNO ID: [id number] Author: JIMI DOMINGUEZ, NASH Service: Emergency Medicine Author Type: Registered Nurse Type: ED Notes Filed: 11/18/2023 02:59 Note Text: Sprite given along with jello and pudding. Call light in reach. 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 Patient requesting personal cell phone which was charging and given to patient. [facility] ED NOTE HNO ID: [id number] Author: JIMI DOMINGUEZ RN Service: Emergency Medicine [...] updated patient also on bed status at [facility] and that it could possibly be in the morning before we get a bed. Call light in reach. [facility] ED NOTE HNO ID: [id number] Author: JIMI DOMINGUEZ, NASH Service: Emergency Medicine Author Type: Registered Nurse Type: ED Notes Filed: 11/18/2023 00:48 Note Text: Patient requesting more pain meds and/or something to sleep. MD at bedside talking with patient [facility] ALLIED HEALTHon 11-17-2023 ALLIED HEALTH HNO ID: [id number] Author: MAE KUHN, TECHNOLOGIST Service: Radiology Author Type: Technologist Type: [...] PATIENT PRESENTS WITH AN IMPLANTABLE OR ATTACHED GAUGE CHECKER: No RADIOLOGY DEPARTMENT: CT; Exam(s) Completed: Brain and General X-ray: Exam(s) Completed: Chest X-Ray PERIPHERAL IV DATA: Not applicable SIGNED BY: Mae Kuhn, TECHNOLOGIST November 17, 2023 8:44 PM Normal [facility] APAP SerPl-mCncon 11-17-2023 Acetaminophen [Mass/Vol] 8 ug/mL Low 10-30 [facility] Comment on above: Order Comment: Cole lamas Type: BLOOD SPECIMENOrdering Facility: [facility] Address: [address] [place] [address] Result Comment: Toxi c > 150 ug/mL 4 hours post ingestion The [address] Varghese nomogram can be used to estimate the probability of hepatotoxicity via the relationship of plasma acetaminophen concentration to the post ingestion interval. (Sara. Pediatrics. 1975. 55:[address] et al[address] [employer] Drawings Checker Med. 1981. 141:380 to 385). Reference ranges and high/low indicator flags are provided as general guidelines only. The treating physician must determine appropriate target levels/dosing based on the specific clinical situation. Performed By: #### 3 298-7, 5643-2, 4024-6 ####[facility] [place] LABCLIA [id number] [place] [address] [place] CBC W Auto Differential pane l (Bld)on 11-17-2023 Basophils (Bld) [#/Vol] 0.03 10*3/uL Normal <0.11 [facility] Comment on above: Order Comment: Cole lamas Type: BLOOD SPECIMENOrdering Facility: [facility] Address: [address] [place] [address] Performed By: #### 5 7021-8 ####[facility] LABCLIA [id number] [place] [address] [place] [facility] Basophils/100 WBC (Bld) 0.3 % Normal [facility] Comment on above: Order Comment: Speci men Type: BLOOD SPECIMENOrdering Facility: [facility] Address: [address] [place] [address] Result Comment: Diff erential confirmed by visual scan of peripheral blood smear slide. Performed By: #### 5 7021-8 ####[facility] LABCLIA [id number] [place] [id number] [facility] Differential cell count method Nom (Bld) Auto Normal [facility] Comment on above: Order Comment: Speci men Type: BLOOD SPECIMENOrdering Facility: [facility] Address: [address] [place] [address] Performed By: #### 5 7021-8 ####[facility] LABCLIA [id number] [place] [address] [place] [facility] Eosinophils (Bld) [#/Vol] 0.09 10*3/uL Normal <0.46 [facility] Comment on above: Order Comment: Speci men Type: BLOOD SPECIMENOrdering Facility: [facility] Address: [address] [place] [address] Performed By: #### 5 7021-8 ####[facility] [place] LABCLIA [id number] [place] [address] [place] [facility] Eosinophils/100 WBC (Bld) 0.8 % Normal [facility] Comment on above: Order Comment: Speci men Type: BLOOD SPECIMENOrdering Facility: [facility] Address: [address] [place] [address] Performed By: #### 5 7021-8 ####[facility] [place] LABCLIA [id number] [place] [address] [facility] [place] Erythrocyte distribution width (RBC) [Ratio] 23.6 % High 11.5-15.0 [facility] Comment on above: Order Comment: Speci men Type: BLOOD SPECIMENOrdering Facility: [facility] Address: [facility] [place] [address] Performed By: #### 5 7021-8 ####[facility] LABCLIA [id number] [place] [address] [place] Hematocrit (Bld) [Volume fraction] 33.8 % Low 36.0-46.0 [facility] Comment on above: Order Comment: Speci men Type: BLOOD SPECIMENOrdering Facility: [facility] Address: [address] [place] [address] Performed By: #### 5 7021-8 ####[facility] LABCLIA [id number] [place] [address] [place] Hemoglobin (Bld) [Mass/Vol] 10.3 g/dL Low 11.5-15.5 [facility] Comment on above: Order Comment: Speci men Type: BLOOD SPECIMENOrdering Facility: [facility] Address: [address] [place] [address] Performed By: #### 5 7021-8 ####[facility] LABCLIA [id number] [place] [address] [facility] [place] Immature granulocytes (Bld) [#/Vol] 0.08 10*3/uL Normal <0.10 [facility] Comment on above: Order Comment: Speci men Type: BLOOD SPECIMENOrdering Facility: [facility] Address: [address] [place] [address] Performed By: #### 5 7021-8 ####[facility] LABCLIA [id number] [place] [address] [facility] Immature granulocytes/100 WBC (Bld) 0.7 % Normal [facility] Comment on above: Order Comment: Speci men Type: BLOOD SPECIMENOrdering Facility: [facility] Address: [address] [place] [address] Performed By: #### 5 7021-8 ####[facility] LABCLIA [id number] [place] [address] [place] Lymphocytes (Bld) [#/Vol] 2.43 10*3/uL Normal 1.00-4.00 [facility] Comment on above: Order Comment: Speci men Type: BLOOD SPECIMENOrdering Facility: [facility] Address: [address] [place] [address] Performed By: #### 5 7021-8 ####[facility] LABCLIA [id number] [place] [address] [facility] Lymphocytes/100 WBC (Bld) 21.1 % Normal [facility] Comment on above: Order Comment: Speci men Type: BLOOD SPECIMENOrdering Facility: [facility] Address: [address] [place] [address] Performed By: #### 5 7021-8 ####[facility] LABCLIA [id number] [place] [address] [place] [facility] MCH (RBC) [Entitic mass] 23.7 pg Low 26.0-34.0 [facility] Comment on above: Order Comment: Speci men Type: BLOOD SPECIMENOrdering Facility: [facility] Address: [address] [place] [address] Performed By: #### 5 7021-8 ####[facility] LABCLIA [id number] [place] [address] [place] MCHC (RBC) [Mass/Vol] 30.5 g/dL Normal 30.5-36.0 [facility] Comment on above: Order Comment: Speci men Type: BLOOD SPECIMENOrdering Facility: [facility] Address: [address] [place] [address] Performed By: #### 5 7021-8 ####[facility] LABCLIA [id number] [place] [address] [place] MCV (RBC) [Entitic vol] 77.7 fL Low 80.0-100.0 [facility] Comment on above: Order Comment: Speci men Type: BLOOD SPECIMENOrdering Facility: [facility] Address: [address] [place] [address] Performed By: #### 5 7021-8 ####[facility] [place] LABCLIA [id number] [place] [address] [place] Monocytes (Bld) [#/Vol] 1.40 10*3/uL High <0.87 [facility] Comment on above: Order Comment: Speci men Type: BLOOD SPECIMENOrdering Facility: [facility] Address: [address] [place] [address] Performed By: #### 5 7021-8 ####[facility] [place] LABCLIA [id number] [facility] [address] [facility] Monocytes/100 WBC (Bld) 12.2 % Normal [facility] Comment on above: Order Comment: Speci men Type: BLOOD SPECIMENOrdering Facility: [facility] Address: [address] [place] [address] Performed By: #### 5 7021-8 ####[facility] [place] LABCLIA [id number] [facility] [address] [place] Neutrophils (Bld) [#/Vol] 7.47 10*3/uL Normal 1.45-7.50 [facility] Comment on above: Order Comment: Speci men Type: BLOOD SPECIMENOrdering Facility: [facility] Address: [address] [place] [address] Performed By: #### 5 7021-8 ####[facility] [place] LABCLIA [id number] [facility] [place] [address] [place] Neutrophils/100 WBC (Bld) 64.9 % Normal [facility] Comment on above: Order Comment: Speci men Type: BLOOD SPECIMENOrdering Facility: [facility] Address: [address] [place] [address] Performed By: #### 5 7021-8 ####[facility] [place] LABCLIA [id number] [place] [address] [facility] [place] Nucleated RBC (Bld) [#/Vol] Normal [facility] Comment on above: Order Comment: Speci men Type: BLOOD SPECIMENOrdering Facility: [facility] Address: [address] [place] [address] Performed By: #### 5 7021-8 ####[facility] LABCLIA [id number] [place] [address] [facility] Nucleated RBC/100 WBC (Bld) [Ratio] Normal [facility] Comment on above: Order Comment: Speci men Type: BLOOD SPECIMENOrdering Facility: [facility] Address: [address] [place] [address] Performed By: #### 5 7021-8 ####[facility] LABCLIA [id number] [place], [place] [address] [place] [address] [place] Platelet mean volume (Bld) [Entitic vol] 9.8 fL Normal 9.0-12.7 [facility] Comment on above: Order Comment: Speci men Type: BLOOD SPECIMENOrdering Facility: [facility] Address: [address] [place] [address] Performed By: #### 5 7021-8 ####[facility] LABCLIA [id number] [address] [place] Platelets (Bld) [#/Vol] 112 10*3/uL Low 150-400 [facility] Comment on above: Order Comment: Speci men Type: BLOOD SPECIMENOrdering Facility: [facility] Address: [address] [place] [address] Result Comment: no c lot detected Platelet Abnormal Distribution.Reviewed. Performed By: #### 5 7021-8 ####[facility] [place] LABCLIA [id number] [place] [address] [facility] [place] RBC (Bld) [#/Vol] 4.35 10*6/uL Normal 3.90-5.20 [facility] Comment on above: Order Comment: Speci men Type: BLOOD SPECIMENOrdering Facility: [facility] Address: [address] [place] [address], [place] [address] Performed By: #### 5 7021-8 ####[facility] LABCLIA [id number] [place] [address] [place] WBC (Bld) [#/Vol] 11.50 10*3/uL High 3.70-11.00 [facility] Comment on above: Order Comment: Speci men Type: BLOOD SPECIMENOrdering Facility: [facility] Address: [place] [address] Performed By: #### 5 7021-8 ####[facility] LABCLIA [id number] [place] [address] [facility] [address] BRAIN WO IVCONon 11-17-[address] BRAIN WO IVCON * * *Final Report* * * DATE OF EXAM: Nov 17 2023 8:40PM [facility] 0504 - CT BRAIN WO IVCON / [...] control(AEC) and iterative recon COMPARISON: None. RESULT: Events Assistant (topogram) images: No additional findings. Post-operative change: [...] are unremarkable. IMPRESSION: No acute intracranial abnormality. Wireless Team Member: POOJA Transcribe Date/Time: Nov 17 2023 8:41P Dictated by : MAYITO STEVENS MD This examination was interpreted and the report reviewed and electronically signed by: MAYITO STEVENS MD on Nov 17 2023 8:47PM EST [id number] Normal [facility] Comprehensive metabolic 2000 panelon 11-17-2023 Albumin [Mass/Vol] 2.6 g/dL Low 3.9-4.9 [facility] Comment on above: Order Comment: Speci men Type: BLOOD SPECIMENOrdering Facility: [facility] Address: [address] [place] [address] Performed By: #### 2 4323-8, 00344-3, 00343-0, 3040-3 ####[facility] LABCLIA [id number] [place] [address] [place] [facility] ALP [Catalytic activity/Vol] 245 U/L High 34-123 [facility] Comment on above: Order Comment: Speci men Type: BLOOD SPECIMENOrdering Facility: [facility] Address: [address] [place] [address] Performed By: #### 2 4323-8, 24995-6, 70619-9, 3040-3 ####[facility] LABCLIA [id number] [place] [address] [place] ALT With P-5'-P [Catalytic activity/Vol] 29 U/L Normal 7-38 [facility] Comment on above: Order Comment: Speci men Type: BLOOD SPECIMENOrdering Facility: [facility] Address: [address] [place] [address] Performed By: #### 2 4323-8, 49805-9, 01031-9, 3040-3 ####[facility] LABCLIA [id number] [place] [address] [facility] Anion gap [Moles/Vol] 9 mmol/L Normal 9-18 [facility] Comment on above: Order Comment: Speci men Type: BLOOD SPECIMENOrdering Facility: [facility] Address: [address] [place] [address] Performed By: #### 2 4323-8, 65571-8, 66173-3, 3040-3 ####[facility] [place] LABCLIA [id number] [place] [address] [place] AST With P-5'-P [Catalytic activity/Vol] 78 U/L High 13-35 [facility] Comment on above: Order Comment: Speci men Type: BLOOD SPECIMENOrdering Facility: [facility] Address: [address] [place] [address] Performed By: #### 2 4323-8, 85181-8, 08334-8, 3040-3 ####[facility] LABCLIA [id number] [place] [address] [place] Bilirubin [Mass/Vol] 3.0 mg/dL High 0.2-1.3 [facility] Comment on above: Order Comment: Speci men Type: BLOOD SPECIMENOrdering Facility: [facility] Address: [address] [place] [address] Performed By: #### 2 4323-8, 86826-7, 61698-1, 3040-3 ####[facility] LABCLIA [id number] [place] [address] [place] Calcium [Mass/Vol] 8.6 mg/dL Normal 8.5-10.2 [facility] Comment on above: Order Comment: Speci men Type: BLOOD SPECIMENOrdering Facility: [facility] Address: [address] [place] [address] Performed By: #### 2 4323-8, 85000-7, 47011-7, 3040-3 ####[facility] LABCLIA [id number] [place] [address] [place] Chloride [Moles/Vol] 101 mmol/L Normal 97-105 [facility] Comment on above: Order Comment: Speci men Type: BLOOD SPECIMENOrdering Facility: [facility] Address: [address] [place] [address] Performed By: #### 2 4323-8, 61561-5, 13685-8, 3040-3 ####[facility] LABCLIA [id number] [place] [address] [place] CO2 [Moles/Vol] 24 mmol/L Normal 22-30 [facility] Comment on above: Order Comment: Speci men Type: BLOOD SPECIMENOrdering Facility: [facility] Address: [address] [place] [address] Performed By: #### 2 4323-8, 55777-9, 91394-5, 3040-3 ####[facility] LABCLIA [id number] [place] [address] [place] Creatinine [Mass/Vol] 0.72 mg/dL Normal 0.58-0.96 [facility] Comment on above: Order Comment: Speci men Type: BLOOD SPECIMENOrdering Facility: [facility] Address: [address] [place] [address] Performed By: #### 2 4323-8, 71818-5, 09716-5, 3040-3 ####[facility] LABCLIA [id number] [place] [address] [facility] Creatinine and Glomerular filtration rate.predicted panel (S/P/Bld) 102 mL/min/1.73m??? Normal >=60 [facility] Comment on above: Order Comment: Cole cydney Type: BLOOD SPECIMENOrdering Facility: [facility] Address: [address] [place] [address] Result Comment: Connie mated Glomerular Filtration Rate [...] actual GFR. Performed By: #### 2 4323-8, 71911-1, 34736-6, 3040-3 ####[facility] LABCLIA [id number] [place] [address] [place] Glucose [Mass/Vol] 121 mg/dL High 74-99 [facility] Comment on above: Order Comment: Speci men Type: BLOOD SPECIMENOrdering Facility: [facility] Address: [address] [place], [place] [address] Result Comment: The [place] [employer] Association (ADA) provides guidance for cutoff [...] Standards of Medical Care in Diabetes 2016, [place] [employer]. Diabetes Care. 2016.39(Suppl 1). Performed By: #### 2 4323-8, 38067-5, 96582-2, 3040-3 ####[facility] LABCLIA [id number] [place] [address] [place] Potassium [Moles/Vol] 4.0 mmol/L Normal 3.7-5.1 [facility] Comment on above: Order Comment: Yeseniachyna lamas Type: BLOOD SPECIMENOrdering Facility: [facility] Address: [address] [place], [place] [address] Performed By: #### 2 4323-8, 52368-1, 38983-0, 3040-3 ####[facility] LABCLIA [id number] [place] [address] [place] Protein [Mass/Vol] 7.8 g/dL Normal 6.3-8.0 [facility] Comment on above: Order Comment: Yeseniachyna lamas Type: BLOOD SPECIMENOrdering Facility: [facility] Address: [address] [place] [address] Performed By: #### 2 4323-8, 98114-9, 97575-6, 3040-3 ####[facility] LABCLIA [id number] [place] [address] [place] Sodium [Moles/Vol] 134 mmol/L Low 136-144 [facility] Comment on above: Order Comment: Speci men Type: BLOOD SPECIMENOrdering Facility: [facility] Address: [address] [place] [address] Performed By: #### 2 4323-8, 51880-8, 84641-1, 3040-3 ####[facility] LABCLIA [id number] [place] [address] [place] Urea nitrogen [Mass/Vol] 9 mg/dL Normal 7-21 [facility] Comment on above: Order Comment: Speci men Type: BLOOD SPECIMENOrdering Facility: [facility] Address: [address] [place] [address] Performed By: #### 2 4323-8, 19595-8, 96181-9, 3040-3 ####[facility] LABCLIA [id number] [place] [id number] [facility] [place] ECG COMPLETEon 11-17-2023 ECG COMPLETE Ventricular Rate : 8 2 BPM Atrial Rate : 82 BPM P-R Interval : 152 ms QRS Duration : 74 ms Q-T Interval : 400 ms QTC Calculation(Bazett) : 467 ms Calculated P [place] : 63 degrees Calculated R [place] : 2 degrees Calculated T [place] : 65 degrees NORMAL SINUS RHYTHM NONSPECIFIC ST-T WAVE CHANGES CANNOT RULE OUT ANTERIOR INFARCT , AGE UNDETERMINED ABNORMAL ECG NO PREVIOUS ECGS AVAILABLE Confirmed by MD BENZ VINAYAK ([id number]) on 11/22/2023 8:00:16 AM NAME : CAROLINA HIGHTOWER PID : [id number] : 1975 Gender : Female Race : ORD : [id number] Procedure Date : Nov 17 2023 19:48:43 Edit Date : Nov 22 2023 08:00:20 Diagnosis: NORMAL SINUS RHYTHM NONSPECIFIC ST-T WAVE CHANGES CANNOT RULE OUT ANTERIOR INFARCT , AGE UNDETERMINED ABNORMAL ECG NO PREVIOUS ECGS AVAILABLE Confirmed by MD BENZ VINAYAK ([id number]) on 11/22/2023 8:00:16 AM Test Reason : Chest Pain Location : 191 : [facility] ED Overread By : MD BENZ VINAYAK Edited By : MD BENZ VINAYAK Referred By : , Acquired by : TRESA NGUYEN [facility] ED NOTEon 11-17-2023 ED NOTE HNO ID: [id number] Author: JIMI DOMINGUEZ RN Service: Emergency Medicine Author Type: Registered Nurse Type: ED Notes Filed: 11/17/2023 20:40 Note Text: Patient absolutely refuses to go to [place] or [place] or [facility]. MD notified [facility] ED NOTE HNO ID: [id number] Author: JIMI DOMINGUEZ, NASH Service: Emergency Medicine Author Type: Registered Nurse Type: ED Notes Filed: 11/17/2023 20:18 Note Text: Patient ambulatory to with steady gait. Urine obtained and sent [facility] ED NOTE HNO ID: [id number] Author: JIMI DOMINGUEZ RN Service: Emergency Medicine Author Type: Registered Nurse Type: ED Notes Filed: 11/17/2023 19:42 Note Text: Patient brought to ER by daughter - patient states seen at [facility] times and per her PCP told to go to another ER. Per daughter patient is confused, abd swelling and SOB and dizziness with frequent falls. Monitor applied. EKG obtained. [facility] ED PROV NOTEon 11-17-2023 ED PROV NOTE HNO ID: [id number] Author: KOKO RUIZ MD Service: Emergency Medicine [...] distended than baseline. She typically follows at [facility] and has been seen there several times [...] PAST SURGICAL HISTORY OF 2018 liver bx [facility] FAMILY HISTORY Problem Relation Age of [...] Palpations: Abd (more content not included)... Normal [facility] Ethanol SerPl-mCncon 024 Ethanol [Mass/Vol] mg/dL Normal <11 [facility] Comment on above: Order Comment: Speci men Type: BLOOD SPECIMENOrdering Facility: [facility] Address: [address] [place] [address] [place] [address] Performed By: #### 3 298-7, 5643-2, 4024-6 ####[facility] LABCLIA [id number] [place] [address] [place] FLUABV+SARS-CoV-2+RSV Pnl Re sp PHYLLIS+probeon 11-17-2023 FLUABV+SARS-CoV-2+RSV Pnl Resp PHYLLIS+probe COVID 19 RESULT: Not detected The method used is RT-PCR or an equivalent NAAT method. Reference Range(the expected result in uninfected individuals): Not detected INFLUENZA A PCR: Not detected INFLUENZA B PCR: Not detected RSV PCR: Not detected Normal [facility] Comment on above: Performed By: #### 9 5941-1 ####[facility] LAB[facility] [id number] [address] HIGH SENSITIVITY TROPONIN T (INITIAL)on 11-17-2023 Troponin T.cardiac High sensitivity method [Mass/Vol] 16 ng/L High <12 [facility] Comment on above: Order Comment: Cole lamas Type: BLOOD SPECIMENOrdering Facility: [facility] Address: [address] [place] [address] Result Comment: When assessing risk for acute [...] 30 day MACE. Performed By: #### L [id number] ####[facility] LABCLIA [id number] [place] [id number] [facility] HIGH SENSITIVITY TROPONIN T (SECOND)on 11-17-2023 Troponin T.cardiac High sensitivity method [Mass/Vol] 16 ng/L High <12 [facility] Comment on above: Order Comment: Cole lamas Type: BLOOD SPECIMENOrdering Facility: [facility] Address: [address] [place] [address] Result Comment: When assessing risk for acute [...] 30 day MACE. Performed By: #### L [id number] ####[facility] LABCLIA [id number] [place] [address] [place] HIGH SENSITIVITY TROPONIN T (THIRD) 3 HRS AFTER INITIALon 11-17-2023 Troponin T.cardiac High sensitivity method [Mass/Vol] 13 ng/L High <12 [facility] Comment on above: Order Comment: Cole lamas Type: BLOOD SPECIMENOrdering Facility: [facility] Address: [address] [place] [address] Result Comment: When assessing risk for acute [...] 30 day MACE. Performed By: #### L [id number] ####[facility] LABCLIA [id number] [place] [id number] [place] Lipase SerPl-cCncon 11-17-19 24 Lipase [Catalytic activity/Vol] 23 U/L Normal 16-61 [facility] Comment on above: Order Comment: Cole lamas Type: BLOOD SPECIMENOrdering Facility: [facility] Address: [address] [place] [address] Performed By: #### 2 4323-8, 43993-6, 40082-4, 3040-3 ####[facility] LABCLIA [id number] [place] [id number] [place] Magnesium SerPl-mCncon 11-17 Magnesium [Mass/Vol] 1.6 mg/dL Low 1.7-2.3 [facility] Comment on above: Order Comment: Cole lamas Type: BLOOD SPECIMENOrdering Facility: [facility] Address: [address] [place] [address] Performed By: #### 2 4323-8, 32358-7, 04172-3, 3040-3 ####[facility] LABCLIA [id number] [place] [address] [facility] NT-proBNP [facility] 11-17 Natriuretic peptide.B prohormone N-Terminal [Mass/Vol] 83 pg/mL Normal <125 [facility] Comment on above: Order Comment: Speci men Type: BLOOD SPECIMENOrdering Facility: [facility] Address: [address] [place] [address] Performed By: #### 2 4323-8, 83477-5, 59368-2, 3040-3 ####[facility] LABCLIA [id number] [place] [address] [facility] Salicylates SerPl-[facility] Salicylates [Mass/Vol] mg/dL Low 3.0-30.0 [facility] Comment on above: Order Comment: Speci men Type: BLOOD SPECIMENOrdering Facility: [facility] Address: [address] [place] [address] Result Comment: The therapeutic range varies and has been reported to be 3.0 to 10.0 mg/dL for anti pyretic/analgesic conditions and 15.0 to 30.0 mg/dL for anti inflammatory/rheumatic fever conditions. Ranges published by the instrument afric[employer] studies professor. Reference ranges and high/low indicator flags are provided as general guidelines only. The treating physician must determine appropriate target levels/dosing based on the specific clinical situation. Performed By: #### 3 298-7, 5643-2, 4024-6 ####[facility] LABSaySwapIA [id number] [place] [id number] [facility] TOX SCREEN ROUT URon 024 Amphetamines Confirm (U) [Mass/Vol] Negative Normal Negative [facility] Comment on above: Order Comment: Speci men Type: URINE SPECIMENOrdering Facility: [facility] Address: [address] [place] [address] Result Comment: Cuto ff threshold at 1000 ng/mL. Performed By: #### U TOX2 ####[facility] LABCLIA [id number] [place] [address] [facility] BARBITURATES, URINE Negative Normal Negative [facility] Comment on above: Order Comment: Speci men Type: URINE SPECIMENOrdering Facility: [facility] Address: [address] [place] [address] Result Comment: Cuto ff threshold at 200 ng/mL. Performed By: #### U TOX2 ####[facility] [place] LABCLIA [id number] [place] [address] [place] BENZODIAZEPINES, UR Negative Normal Negative [facility] Comment on above: Order Comment: Speci men Type: URINE SPECIMENOrdering Facility: [facility] Address: [address] [place] [address] Result Comment: Cuto ff threshold at 200 ng/mL. Performed By: #### U TOX2 ####[facility] [place] LABCLIA [id number] [place] [address] [facility] Cannabinoids Screen Ql (U) Positive Abnormal Negative [facility] Comment on above: Order Comment: Speci men Type: URINE SPECIMENOrdering Facility: [facility] Address: [address] [place] [address] Result Comment: Cuto ff threshold at 50 ng/mL. Performed By: #### U TOX2 ####[facility] [place] LABCLIA [id number] [place] [address] [place] Cocaine Ql (U) Negative Normal Negative [facility] Comment on above: Order Comment: Speci men Type: URINE SPECIMENOrdering Facility: [facility] Address: [address] [place] [address] Result Comment: Cuto ff threshold at 300 ng/mL. Performed By: #### U TOX2 ####[facility] [place] LABCLIA [id number] [place] [address] [place] Ethanol (U) [Mass/Vol] <11 Normal <11 [facility] Comment on above: Order Comment: Speci men Type: URINE SPECIMENOrdering Facility: [facility] Address: [address] [place] [address] Performed By: #### U TOX2 ####[facility] [place] LABCLIA [id number] [place] [address] [facility] [place] Opiates Screen Ql (U) Negative Normal Negative [facility] Comment on above: Order Comment: Speci men Type: URINE SPECIMENOrdering Facility: [facility] Address: [address] [place] [address] Result Comment: Cuto ff threshold at 300 ng/mL. Performed By: #### U TOX2 ####[facility] [place] LABCLIA [id number] [place] [address] [facility] oxyCODONE cutoff Screen (U) [Mass/Vol] Negative Normal Negative [facility] Comment on above: Order Comment: Speci men Type: URINE SPECIMENOrdering Facility: [facility] Address: [address] [place] [address] Result Comment: Cuto ff threshold at 100 ng/mL. Performed By: #### U TOX2 ####[facility] LABCLIA [id number] [place] [id number] [facility] Phencyclidine Ql (U) Negative Normal Negative [facility] Comment on above: Order Comment: Speci men Type: URINE SPECIMENOrdering Facility: [facility] Address: [address] [place] [address] Result Comment: Cuto ff threshold at 25 ng/mL. Performed By: #### U TOX2 ####[facility] [place] LABCLIA [id number] [place] [address] [facility] Urinalysis complete panel (U )on 11-17-2023 Bacteria LM.HPF (Urine sed) [#/Area] Few Abnormal None Seen [facility] Comment on above: Order Comment: Speci men Type: URINE SPECIMENOrdering Facility: [facility] Address: [address] [place] [address] Performed By: #### 2 4356-8 ####[facility] [place] LABCLIA [id number] [place] [address] [facility] Bilirubin Ql (U) 2+ Abnormal Negative [facility] Comment on above: Order Comment: Speci men Type: URINE SPECIMENOrdering Facility: [facility] Address: [address] [place] [address] Result Comment: Sugg est correlation with clinical findings and serum bilirubin if clinically indicated. Performed By: #### 2 4356-8 ####[facility] [place] LABCLIA [id number] [place] [address] [facility] Clarity (Unsp spec) Slightly Cloudy Abnormal Clear [facility] Comment on above: Order Comment: Speci men Type: URINE SPECIMENOrdering Facility: [facility] Address: [address] [place] [address] Performed By: #### 2 4356-8 ####[facility] [place] LABCLIA [id number] [facility] [address] [place] [facility] Color (U) Mike Abnormal Yellow [facility] Comment on above: Order Comment: Speci men Type: URINE SPECIMENOrdering Facility: [facility] Address: [address] [place] [address] Performed By: #### 2 4356-8 ####[facility] [place] LABCLIA [id number] [facility] [place] [address] [place] Epithelial cells LM.HPF (Urine sed) [#/Area] Few Normal [facility] Comment on above: Order Comment: Speci men Type: URINE SPECIMENOrdering Facility: [facility] Address: [address] [place] [address] Performed By: #### 2 4356-8 ####[facility] [place] LABCLIA [id number] [place] [address] [facility] [place] Glucose Test strip (U) [Mass/Vol] Negative Normal Negative [facility] Comment on above: Order Comment: Speci men Type: URINE SPECIMENOrdering Facility: [facility] Address: [address] [place] [address] Performed By: #### 2 4356-8 ####[facility] [place] LABCLIA [id number] [facility] [place] [address] [place] Hemoglobin Ql (U) 1+ Abnormal Negative [facility] Comment on above: Order Comment: Speci men Type: URINE SPECIMENOrdering Facility: [facility] Address: [address] [place] [address] Performed By: #### 2 4356-8 ####[facility] [place] LABCLIA [id number] [facility] [place] [address] [place] [facility] Ketones Ql (U) Negative Normal Negative [facility] Comment on above: Order Comment: Speci men Type: URINE SPECIMENOrdering Facility: [facility] Address: [address] [place] [address] Performed By: #### 2 4356-8 ####[facility] [place] LABCLIA [id number] [place] [address] [facility] Leukocyte esterase Test strip Ql (U) Negative Normal Negative [facility] Comment on above: Order Comment: Speci men Type: URINE SPECIMENOrdering Facility: [facility] Address: [address] [place] [address] Performed By: #### 2 4356-8 ####[facility] [place] LABCLIA [id number] [place] [address] [facility] Nitrite Ql (U) Negative Normal Negative [facility] Comment on above: Order Comment: Speci men Type: URINE SPECIMENOrdering Facility: [facility] Address: [address] [place] [address] Performed By: #### 2 4356-8 ####[facility] [place] LABCLIA [id number] [place] [address] [place] pH (U) 6.0 [pH] Normal 5.0-8.0 [facility] Comment on above: Order Comment: Speci men Type: URINE SPECIMENOrdering Facility: [facility] Address: [address] [place] [address] Performed By: #### 2 4356-8 ####[facility] [place] LABCLIA [id number] [place] [address] [place] Protein (U) [Mass/Vol] 1+ Abnormal Negative [facility] Comment on above: Order Comment: Speci men Type: URINE SPECIMENOrdering Facility: [facility] Address: [address] [place] [address] Performed By: #### 2 4356-8 ####[facility] LABCLIA [id number] [place] [address] [place] RBC LM.HPF (Urine sed) [#/Area] 6-10 /HPF Abnormal 0-3 /HPF [facility] Comment on above: Order Comment: Speci men Type: URINE SPECIMENOrdering Facility: [facility] Address: [address] [place] [address] Performed By: #### 2 4356-8 ####[facility] LABCLIA [id number] [place] [id number] [facility] Specific gravity (U) [Rel density] >=1.030 High 1.005-1.030 [facility] Comment on above: Order Comment: Speci men Type: URINE SPECIMENOrdering Facility: [facility] Address: [address] [place] [address] Performed By: #### 2 4356-8 ####[facility] LABCLIA [id number] [place] [id number] [facility] Urobilinogen Ql (U) 4.0 EU/dL Abnormal 0.2-1.0 EU/dL [facility] Comment on above: Order Comment: Speci men Type: URINE SPECIMENOrdering Facility: [facility] Address: [address] [place] [address] Performed By: #### 2 4356-8 ####[facility] LABCLIA [id number] [place] [id number] [facility] WBC LM.HPF (Urine sed) [#/Area] 0-5 /HPF Normal 0-5 /HPF [facility] Comment on above: Order Comment: Speci men Type: URINE SPECIMENOrdering Facility: [facility] Address: [address] [place] [address] Performed By: #### 2 4356-8 ####[facility] [id number] [place] [address] [facility] XR CHEST 1V FRONTALon 2023 XR CHEST [...] viral pneumonitis in the appropriate clinical setting. Wireless Team Member: POOJA Transcribe Date/Time: Nov 17 2023 8:50P Dictated by : ARMANDO RAY DO This examination was interpreted and the report reviewed and electronically signed by: ARMANDO RAY DO on Nov 17 2023 8:51PM EST [id number] Normal [facility] Absolute lymphocyte countOrd ered By: Erik Cordova on 11-10-2023 Lymphocytes Auto (Unsp spec) [#/Vol] 1.49 10*3/uL 0.83-4.51 [facility] Automated lymphocyte count a s percentage of total leukocytesOrdered By: Erik Cordova on 11-10-2023 Lymphocytes/100 WBC Auto (Unsp spec) 34.5 % 19-41 [facility] Basophil percentageOrdered B y: Erik Cordova on 11-10-2023 Basophil percentage 10.3 g/dL 12.0-15.0 [facility] Basophil percentage 92 mg/dL 74-106 [facility] Basophil percentage 6.5 g/dL 6.4-8.2 [facility] Basophil percentage 1.60 mg/dL 0.20-1.00 [facility] Basophil percentage 142 mmol/L 136-145 [facility] Basophil percentage 4.3 mmol/L 3.5-5.1 [facility] Basophil percentage 113 mmol/L 98-107 [facility] Basophil percentage < 10.0 umol/L 11-32 [facility] Basophils (Bld) [#/Vol] 4.3 10*3/uL 4.4-11.0 [facility] Basophils (Bld) [#/Vol] 2.5 10*3/uL 2.0-7.7 [facility] Basophils/100 WBC (Bld) 57.4 % 47-70 [facility] Basophils/100 WBC (Bld) 6.7 % 0-10 [facility] Basophils/100 WBC (Bld) 0.7 % 0-5 [facility] Basophils/100 WBC (Bld) 0.5 % 0-1 [facility] Bilirubin [Mass/Vol] 1.60 mg/dL 0.20-1.00 [facility] Comment on above: For patients on eltr ombopag therapy, use of Dimension [place] TBIL is not recommended. Chloride [Moles/Vol] 113 mmol/L 98-107 [facility] Eosinophils/100 WBC (Bld) 0.7 % 0-5 [facility] Glucose [Mass/Vol] 92 mg/dL 74-106 [facility] Hemoglobin (Bld) [Mass/Vol] 10.3 g/dL 12.0-15.0 [facility] Monocytes/100 WBC (Bld) 6.7 % 0-10 [facility] Neutrophils (Bld) [#/Vol] 2.5 10*3/uL 2.0-7.7 [facility] Neutrophils/100 WBC (Bld) 57.4 % 47-70 [facility] Potassium [Moles/Vol] 4.3 mmol/L 3.5-5.[address] [facility] Protein [Mass/Vol] 6.5 g/dL 6.4-8.2 [facility] Sodium [Moles/Vol] 142 mmol/L 136-145 [facility] WBC (Bld) [#/Vol] 4.3 10*3/uL 4.4-11.0 [facility] Blood platelet adequacy dete ction by light microscopyOrdered By: Erik Cordova on 11-10-2023 Platelets LM Ql (Bld) MOD DEC ADEQ [facility] Determination of erythrocyte mean corpuscular volume (MCV)Ordered By: Erik Cordova on 11-10-2023 MCV (RBC) [Entitic vol] 77.2 fL 81-99 [facility] Direct bilirubinOrdered By: Erik Cordova on 11-10-2023 Bilirubin.direct [Mass/Vol] 0.89 mg/dL 0.00-0.30 [facility] Erythrocyte distribution wid th ratioOrdered By: Erik Cordova on 11-10-2023 Erythrocyte distribution width (RBC) [Ratio] 21.2 % 11.6-14.6 [facility] Erythrocyte distribution wid th standard deviationOrdered By: Erik Cordova on 11-10-2023 Erythrocyte distribution width (RBC) [Entitic vol] 59.1 fL 35.1-43.9 [facility] Hematocrit Auto (Bld) [Volum e fraction]Ordered By: Erik Cordova on 11-10-2023 Hematocrit (Bld) [Volume fraction] 33.9 % 37-47 [facility] Immature granulocytes/100 WB C Auto (Bld)Ordered By: Erik Cordova on 11-10-2023 Immature granulocytes/100 WBC (Bld) 0.200 % 0.0-0.9 [facility] Comment on above: IG% - Immature Granu locytes (promyelocytes, myelocytes and metamyelocytes) > 1% indicates that a LEFT SHIFT is Present. Laboratory - Chemistry and C hemistry - challengeOrdered By: Erik Cordova on 11-10-2023 ALP [Catalytic activity/Vol] 157 U/L 45-117 [facility] ALT [Catalytic activity/Vol] 46 U/L 13-56 [facility] CO2 [Moles/Vol] 24.0 mmol/L 21.0-32.0 [facility] Globulin (S) [Mass/Vol] 4.3 g/dL 2.2-4.2 [facility] Lipase [Catalytic activity/Vol] 47 U/L 13-75 [facility] Comment on above: Please note:LIPASE r evised reference range effective 23. New Lipase methodology. Expected to produce lower values than the previous assay method. NEW Reference Range: 13 - 75 U/L Urea nitrogen/Creatinine [Mass ratio] 11.5 mg/mg 10-20 [facility] Laboratory - CoagulationOrde red By: Erik Cordova on 11-10-2023 INR Coag (Bld) [Relative time] 1.6 {INR} [facility] PT Coag (PPP) [Time] 19.0 s 11.7-14.9 [facility] Laboratory - Hematology and Cell countsOrdered By: Erik Cordova on 11-10-2023 Anisocytosis Ql (Bld) 1+ [facility] MCH (RBC) [Entitic mass] 23.5 pg 27.0-32.0 [facility] MCHC (RBC) [Mass/Vol] 30.4 g/dL 32-[address] [facility] Nucleated RBC/100 WBC (Bld) [Ratio] 0 % 0-5 [facility] Platelets (Bld) [#/Vol] 62 10*3/uL 150-450 [facility] No Panel InformationOrdered By: Erik Cordova on 11-10-2023 Estimated GFR (MDRD) Amer 100 mL/min >60 [facility] Comment on above: GFR Calc Estimated GFR (MDRD) Non-Af Amer 83 mL/min >60 [facility] Comment on above: Non- GFR Calc Mean Platelet [facility] Comment on above: Test not performed 23.5 pg 27.0-32.0 [facility] 30.4 g/dL - [facility] 62 K/mm3 150-450 [facility] TNP [facility] 0 % 0-5 [facility] 1+ [facility] 19.0 SECONDS 11.7-14.9 [facility] 1.6 [facility] 83 mL/min >60 [facility] 100 mL/min >60 [facility] 11.5 RATIO 10-20 [facility] 4.3 g/dL 2.2-4.2 [facility] 47 U/L 13-75 [facility] 157 U/L 45-117 [facility] 46 U/L 13-56 [facility] 24.0 mmol/L 21.0-32.0 [facility] Ovalocyte detectionOrdered B y: Erik Cordova on 11-10-2023 Ovalocytes LM Ql (Bld) RARE [facility] RBC Auto (Bld) [#/Vol]Ordere d By: Erik Cordova on 11-10-2023 RBC (Bld) [#/Vol] 4.39 10*6/uL 4.2-5.4 [facility] RBC morphologyOrdered By: Jose Cordova on 11-10-2023 RBC morphology finding Nom (Bld) N CHROM NORMAL NORM C&C [facility] Serum or plasma calcium latrice urement (mass/volume)Ordered By: Erik Cordova on 11-10-2023 Calcium [Mass/Vol] 8.5 mg/dL 8.5-10.1 [facility] Serum or plasma creatinine m easurement (mass/volume)Ordered By: Erik Cordova on 11-10-2023 Creatinine [Mass/Vol] 0.78 mg/dL 0.55-1.[address] [facility] Comment on above: The validity of the calculated GFR & GFRAA in patients over 70 years has not been determined. Clinical correlation is essential. Serum or plasma urea nitroge n measurement (mass/volume)Ordered By: Erik Cordova on 11-10-2023 Urea nitrogen [Mass/Vol] 9 mg/dL 7-18 [facility] Thin prep Papanicolaou smear with manual screeningOrdered By: Erik Cordova on 11-10-2023 Thin prep Papanicolaou smear with manual screening 1+ [facility] Thin prep Papanicolaou smear with manual screening 2.2 g/dL 3.2-5.0 [facility] Thin prep Papanicolaou smear with manual screening 109 U/L 15-37 [facility] Thin prep Papanicolaou smear with manual screening 5 5-15 [facility] Absolute lymphocyte countOrd ered By: Yimi Hutchinson on 11-07-2023 Lymphocytes Auto (Unsp spec) [#/Vol] 0.74 10*3/uL 0.83-4.51 [facility] Activated partial thrombopla stin time (aPTT) in platelet poor plasma by coagulation aOrdered By: Yimi Hutchinson on 11-07-2023 aPTT Coag (PPP) [Time] 43.8 s 24.1-36.2 [facility] Anaerobic cultureOrdered By: Yimi Hutchinson on 11-07-2023 Bacteria identified Anaer cx Nom (Unsp spec) No growth in 5 days. [facility] Automated lymphocyte count a s percentage of total leukocytesOrdered By: Yimi Hutchinson on 11-07-2023 Lymphocytes/100 WBC Auto (Unsp spec) 23.6 % 19-41 [facility] Basophil percentageOrdered B y: Yimi Hutchinson on 11-07-2023 Basophil percentage 25-50 SEEN /hpf 0-5 [facility] Basophil percentage 9.5 g/dL 12.0-15.0 [facility] Basophil percentage 92 mg/dL 74-106 [facility] Basophil percentage 7.0 g/dL 6.4-8.2 [facility] Basophil percentage 2.10 mg/dL 0.20-1.00 [facility] Basophil percentage 142 mmol/L 136-145 [facility] Basophil percentage 3.6 mmol/L 3.5-5.1 [facility] Basophil percentage 113 mmol/L 98-107 [facility] Basophils (Bld) [#/Vol] 3.1 10*3/uL 4.4-11.0 [facility] Basophils (Bld) [#/Vol] 2.0 10*3/uL 2.0-7.7 [facility] Basophils/100 WBC (Bld) 62.0 % 47-70 [facility] Basophils/100 WBC (Bld) 9.6 % 0-10 [facility] Basophils/100 WBC (Bld) 3.5 % 0-5 [facility] Basophils/100 WBC (Bld) 1.0 % 0-1 [facility] Bilirubin [Mass/Vol] 2.10 mg/dL 0.20-1.00 [facility] Comment on above: For patients on eltr ombopag therapy, use of Dimension [place] TBIL is not recommended. Chloride [Moles/Vol] 113 mmol/L 98-107 [facility] Eosinophils/100 WBC (Bld) 3.5 % 0-5 [facility] Glucose [Mass/Vol] 92 mg/dL 74-106 [facility] Hemoglobin (Bld) [Mass/Vol] 9.5 g/dL 12.0-15.0 [facility] Monocytes/100 WBC (Bld) 9.6 % 0-10 [facility] Neutrophils (Bld) [#/Vol] 2.0 10*3/uL 2.0-7.7 [facility] Neutrophils/100 WBC (Bld) 62.0 % 47-70 [facility] Potassium [Moles/Vol] 3.6 mmol/L 3.5-5.[address] [facility] Protein [Mass/Vol] 7.0 g/dL 6.4-8.2 [facility] Sodium [Moles/Vol] 142 mmol/L 136-145 [facility] WBC (Bld) [#/Vol] 3.1 10*3/uL 4.4-11.0 [facility] Bilirubin Test strip Ql (U)O rdered By: Yimi Hutchinson on 11-07-2023 Bilirubin Ql (U) Negative Negative [facility] Blood platelet adequacy dete ction by light microscopyOrdered By: Yimi Hutchinson on 11-07-2023 Platelets LM Ql (Bld) MOD DEC ADEQ [facility] Body fluid appearanceOrdered By: Yimi Hutchinson on 11-07-2023 Appearance (Body fld) SL CLDY [facility] Body fluid color determinati onOrdered By: Yimi Hutchinson on 11-07-2023 Color (Body fld) LT YEL [facility] Body fluid leukocytes count (number/volume)Ordered By: iYmi Hutchinson on 11-07-2023 WBC (Body fld) [#/Vol] 0.133 10*3/uL [facility] Body fluid lymphocytes/100 l eukocytesOrdered By: Yimi Hutchinson on 11-07-2023 Lymphocytes/100 WBC (Body fld) 21 % [facility] Body fluid mononuclear cell percentageOrdered By: Yimi Hutchinson on 11-07-2023 Mononuclear cells/100 WBC (Body fld) 92.5 % [facility] Body fluid other cell count as percentage of leukocytesOrdered By: Yimi Hutchinson on 11-07-2023 Other cells/100 WBC (Body fld) 74 % [facility] Body fluid polymorphonuclear leukocyte countOrdered By: Yimi Hutchinson on 11-07-2023 Polymorphonuclear cells (Body fld) [#/Vol] 0.010 10^3/uL [facility] Body fluid segmented neutrop hils count (number/volume)Ordered By: Yimi Hutchinson on 11-07-2023 Segmented neutrophils (Body fld) [#/Vol] 3 % [facility] Body fluid total cell countO rdered By: Yimi Hutchinson on 11-07-2023 Cells Counted Total (Body fld) [#] 0.200 10^3/ul 0.000-0.000 [facility] Comment on above: This is the Total Nu mber of Nucleated Cell Types in the Body Fluid. Culture, urineOrdered By: rehan Hutchinson on 11-07-2023 Bacteria identified Cx Nom (U) Culture exhibits no growth. [facility] Bacteria identified Cx Nom (U) Culture exhibits no growth. [facility] Determination of erythrocyte mean corpuscular volume (MCV)Ordered By: Yimi Hutchinson on 11-07-2023 MCV (RBC) [Entitic vol] 76.3 fL 81-99 [facility] Direct bilirubinOrdered By: Yimi Hutchinson on 11-07-2023 Bilirubin.direct [Mass/Vol] 1.03 mg/dL 0.00-0.30 [facility] Erythrocyte distribution wid th ratioOrdered By: Yimi Hutchinson on 11-07-2023 Erythrocyte distribution width (RBC) [Ratio] 20.7 % 11.6-14.6 [facility] Erythrocyte distribution wid th standard deviationOrdered By: Yimi Hutchinson on 11-07-2023 Erythrocyte distribution width (RBC) [Entitic vol] 57.7 fL 35.1-43.9 [facility] Gram stain for investigation of transfusion reactionOrdered By: Yimi Hutchinson on 11-07-2023 Microscopic observation Gram stain Nom (Unsp spec) [facility] Hematocrit Auto (Bld) [Volum e fraction]Ordered By: Ymii Hutchinson on 11-07-2023 Hematocrit (Bld) [Volume fraction] 31.6 % 37-47 [facility] Immature granulocytes/100 WB C Auto (Bld)Ordered By: Yimi Hutchinson on 11-07-2023 Immature granulocytes/100 WBC (Bld) 0.300 % 0.0-0.9 [facility] Comment on above: IG% - Immature Granu locytes (promyelocytes, myelocytes and metamyelocytes) > 1% indicates that a LEFT SHIFT is Present. Ketones Test strip Ql (U)Ord ered By: Yimi Hutchinson on 11-07-2023 Ketones Ql (U) 5 mg/dl Negative [facility] Laboratory - Chemistry and C hemistry - challengeOrdered By: Yimi Hutchinson on 11-07-2023 HCG ( test) Ql (U) Negative [facility] Comment on above: Very dilute urine sp ecimens, as indicated by a low specificgravity, may not contain footwear sales representative levels of hCG. If is still suspected, a first morning urinespecimen should be collected 48 hours later and tested. ALP [Catalytic activity/Vol] 142 U/L 45-117 [facility] ALT [Catalytic activity/Vol] 51 U/L 13-56 [facility] CO2 [Moles/Vol] 25.0 mmol/L 21.0-32.0 [facility] Globulin (S) [Mass/Vol] 4.5 g/dL 2.2-4.2 [facility] Lipase [Catalytic activity/Vol] 38 U/L 13-75 [facility] Comment on above: Please note:LIPASE r evised reference range effective 23. New Lipase methodology. Expected to produce lower values than the previous assay method. NEW Reference Range: 13 - 75 U/L Urea nitrogen/Creatinine [Mass ratio] 14.4 mg/mg 10-20 [facility] Laboratory - CoagulationOrde red By: Yimi Hutchinson on 11-07-2023 INR Coag (Bld) [Relative time] 1.8 {INR} [facility] PT Coag (PPP) [Time] 21.3 s 11.7-14.9 [facility] Laboratory - Hematology and Cell countsOrdered By: Yimi Hutchinson on 11-07-2023 Anisocytosis Ql (Bld) 2+ [facility] MCH (RBC) [Entitic mass] 22.9 pg 27.0-32.0 [facility] MCHC (RBC) [Mass/Vol] 30.1 g/dL 32-[address] [facility] Nucleated RBC/100 WBC (Bld) [Ratio] 0 % 0-5 [facility] Platelets (Bld) [#/Vol] 53 10*3/uL 150-450 [facility] Mucus LM Ql (Urine sed)Order ed By: Yimi Hutchinson on 11-07-2023 Mucus Ql (Urine sed) 1+ /hpf [facility] Nitrite Test strip Ql (U)Ord ered By: Yimi Hutchinson on 11-07-2023 Nitrite Ql (U) Negative Negative [facility] No Panel InformationOrdered By: Yimi Hutchinson on 11-07-2023 Body Fluid Comment 2 SEE COMMENT [facility] Body Fluid Mononuclear WBCs 0.123 10^3/uL [facility] Body Fluid Polynuclear WBCs (%) 7.5 % [facility] Body Fluid RBC 116 /mm3 [facility] 116 /mm3 [facility] 7.5 % [facility] 0.123 10^3/uL [facility] SEE COMMENT [facility] Culture exhibits no growth. [facility] Urine RBC 0-5 SEEN /hpf 0-5 [facility] 0-5 SEEN /hpf 0-5 [facility] Negative [facility] Body Fluid Culture Culture exhibits no growth. [facility] Estimated Creatinine Clearance Calc 85.64 ml/min [facility] Estimated GFR (MDRD) Amer 93 mL/min >60 [facility] Comment on above: GFR Calc Estimated GFR (MDRD) Non-Af Amer 77 mL/min >60 [facility] Comment on above: Non- GFR Calc 22.9 pg 27.0-32.0 [facility] 30.1 g/dL 32-36 [facility] 53 K/mm3 150-450 [facility] 0 % 0-5 [facility] 2+ [facility] 21.3 SECONDS 11.7-14.9 [facility] 1.8 [facility] 77 mL/min >60 [facility] 93 mL/min >60 [facility] 85.64 ml/min [facility] 14.4 RATIO 10-20 [facility] 4.5 g/dL 2.2-4.2 [facility] 38 U/L 13-75 [facility] 142 U/L 45-117 [facility] 51 U/L 13-56 [facility] 25.0 mmol/L 21.0-32.0 [facility] Pathologist interpretation o f Body fluid testsOrdered By: Yimi Hutchinson on 11-07-2023 Pathologist interpretation (Body fld) [Interp] Reviewed [facility] Comment on above: Previous reported re sult: May follow Edited by: RGOSHIRA on 11/08/23:1417Negative for malignant cells.Wilder Godfrey M.D. 11/08/23 AMENDED REPORT 11/08/23 1417 PATH COMM/BF previously reported as: May follow Pathologist interpretation (Body fld) [Interp] May follow [facility] Protein Test strip Ql (U)Ord ered By: Yimi Hutchinson on 11-07-2023 Protein Ql (U) 30 mg/dl Negative [facility] RBC Auto (Bld) [#/Vol]Ordere d By: Yimi Hutchinson on 11-07-2023 RBC (Bld) [#/Vol] 4.14 10*6/uL 4.2-5.4 [facility] Serum or plasma calcium latrice urement (mass/volume)Ordered By: Yimi Hutchinson on 11-07-2023 Calcium [Mass/Vol] 8.8 mg/dL 8.5-10.1 [facility] Serum or plasma creatinine m easurement (mass/volume)Ordered By: Yimi Hutchinson on 11-07-2023 Creatinine [Mass/Vol] 0.83 mg/dL 0.55-1.[address] [facility] Comment on above: The validity of the calculated GFR & GFRAA in patients over 70 years has not been determined. Clinical correlation is essential. Serum or plasma urea nitroge n measurement (mass/volume)Ordered By: Yimi Hutchinson on 11-07-2023 Urea nitrogen [Mass/Vol] 12 mg/dL 7-18 [facility] Specimen source identificati on of body fluidOrdered By: Yimi Hutchinson on 11-07-2023 Specimen source Nom (Body fld) OTHER [facility] Comment on above: PARACENTESIS. Squamous epithelial cells de tection in urine sediment by light microscopyOrdered By: Yimi Hutchinson on 11-07-2023 Epithelial cells.squamous LM Ql (Urine sed) 5-10 SEEN /hpf 5-10 [facility] Thin prep Papanicolaou smear with manual screeningOrdered By: Yimi Hutchinson on 11-07-2023 Thin prep Papanicolaou smear with manual screening 2 % [facility] Thin prep Papanicolaou smear with manual screening 2.5 g/dL 3.2-5.0 [facility] Thin prep Papanicolaou smear with manual screening 92 U/L 15-37 [facility] Thin prep Papanicolaou smear with manual screening 4 5-15 [facility] Urine blood detectionOrdered By: Yimi Hutchinson on 11-07-2023 RBC Ql (U) 50 /ul Negative [facility] Urine clarityOrdered By: Lashay Hutchinson on 11-07-2023 Clarity (U) Sl. Cloudy Clear [facility] Urine color determinationOrd ered By: Yimi Hutchinson on 11-07-2023 Color (U) Yellow Yellow [facility] Urine glucose detectionOrder ed By: Yimi Hutchinson on 11-07-2023 Glucose Ql (U) Normal mg/dl Normal [facility] Urine leukocyte esterase det ection by dipstickOrdered By: Yimi Hutchinson on 11-07-2023 Leukocyte esterase Test strip Ql (U) 500 /ul Negative [facility] Urine pHOrdered By: Yimi mcduffie on 11-07-2023 pH (U) 6.0 [pH] 5.0 - 8.0 [facility] Urine sediment bacteria coun t by microscopy (number/high power field)Ordered By: Yimi Hutchinson on 11-07-2023 Bacteria LM.HPF (Urine sed) [#/Area] 1 /[HPF] None Seen [facility] Urine specific gravity measu rementOrdered By: Yimi Hutchinson on 11-07-2023 Specific gravity (U) [Rel density] 1.020 1.002-1.030 [facility] Urine urobilinogen measureme ntOrdered By: Yimi Hutchinson on 11-07-2023 Urobilinogen Ql (U) 4 mg/dl Normal [facility] Absolute lymphocyte countOrd ered By: Jake Harding on 11-05-2023 Lymphocytes Auto (Unsp spec) [#/Vol] 1.48 10*3/uL 0.83-4.51 [facility] Automated lymphocyte count a s percentage of total leukocytesOrdered By: Jake Harding on 11-05-2023 Lymphocytes/100 WBC Auto (Unsp spec) 29.7 % 19-41 [facility] Basophil percentageOrdered B y: Jake Harding on 11-05-2023 Basophil percentage 5-10 SEEN /hpf 0-[address] [facility] Basophil percentage 9.4 g/dL 12.0-15.0 [facility] Basophil percentage 113 mg/dL 74-106 [facility] Basophil percentage 6.8 g/dL 6.4-8.2 [facility] Basophil percentage 1.80 mg/dL 0.20-1.00 [facility] Basophil percentage 141 mmol/L 136-145 [facility] Basophil percentage 3.8 mmol/L 3.5-5.1 [facility] Basophil percentage 114 mmol/L 98-107 [facility] Basophils (Bld) [#/Vol] 5.0 10*3/uL 4.4-11.0 [facility] Basophils (Bld) [#/Vol] 2.9 10*3/uL 2.0-7.7 [facility] Basophils/100 WBC (Bld) 0.6 % 0-1 [facility] Basophils/100 WBC (Bld) 57.9 % 47-70 [facility] Basophils/100 WBC (Bld) 8.4 % 0-10 [facility] Basophils/100 WBC (Bld) 3.2 % 0-5 [facility] Bilirubin [Mass/Vol] 1.80 mg/dL 0.20-1.00 [facility] Comment on above: For patients on eltr ombopag therapy, use of Dimension [place] TBIL is not recommended. Chloride [Moles/Vol] 114 mmol/L 98-107 [facility] Eosinophils/100 WBC (Bld) 3.2 % 0-5 [facility] Glucose [Mass/Vol] 113 mg/dL 74-106 [facility] Comment on above: Fasting Glucose resu lt from 100 to 125 mg/dL suggests IMPAIRED HOMEOSTASIS per A.D.A. criteria. Hemoglobin (Bld) [Mass/Vol] 9.4 g/dL 12.0-15.0 [facility] Monocytes/100 WBC (Bld) 8.4 % 0-10 [facility] Neutrophils (Bld) [#/Vol] 2.9 10*3/uL 2.0-7.7 [facility] Neutrophils/100 WBC (Bld) 57.9 % 47-70 [facility] Potassium [Moles/Vol] 3.8 mmol/L 3.5-5.[address] [facility] Protein [Mass/Vol] 6.8 g/dL 6.4-8.2 [facility] Sodium [Moles/Vol] 141 mmol/L 136-145 [facility] WBC (Bld) [#/Vol] 5.0 10*3/uL 4.4-11.0 [facility] Bilirubin Test strip Ql (U)O rdered By: Jake Harding on 11-05-2023 Bilirubin Ql (U) 1 mg/dL Negative [facility] Comment on above: COLOR OF URINE MAY A FFECT DIPSTICK RESULTS. Blood manual differential co mment interpretation (narrative result)Ordered By: Jake Harding on 11-05-2023 Manual differential comment Eliezer (Bld) [Interp] SCANNED [facility] Blood platelet adequacy dete ction by light microscopyOrdered By: Jake Harding on 11-05-2023 Platelets LM Ql (Bld) MKD DEC ADEQ [facility] Calcium oxalate crystals det ection in urine sediment by light microscopyOrdered By: Jake Harding on 11-05-2023 Calcium oxalate crystals LM Ql (Urine sed) 2+ /hpf [facility] Culture, urineOrdered By: Jasbir Luu on 11-05-2023 Bacteria identified Cx Nom (U) Culture exhibits no growth. [facility] Bacteria identified Cx Nom (U) Culture exhibits no growth. [facility] Determination of erythrocyte mean corpuscular volume (MCV)Ordered By: Jake Harding on 11-05-2023 MCV (RBC) [Entitic vol] 77.1 fL 81-99 [facility] Erythrocyte distribution wid th ratioOrdered By: Jake Harding on 11-05-2023 Erythrocyte distribution width (RBC) [Ratio] 20.6 % 11.6-14.6 [facility] Erythrocyte distribution wid th standard deviationOrdered By: Jake Harding on 11-05-2023 Erythrocyte distribution width (RBC) [Entitic vol] 58.3 fL 35.1-43.9 [facility] Hematocrit Auto (Bld) [Volum e fraction]Ordered By: Jake Harding on 11-05-2023 Hematocrit (Bld) [Volume fraction] 31.0 % 37-47 [facility] Immature granulocytes/100 WB C Auto (Bld)Ordered By: Jake Harding on 11-05-2023 Immature granulocytes/100 WBC (Bld) 0.200 % 0.0-0.9 [facility] Comment on above: IG% - Immature Granu locytes (promyelocytes, myelocytes and metamyelocytes) > 1% indicates that a LEFT SHIFT is Present. Ketones Test strip Ql (U)Ord ered By: Jake Harding on 11-05-2023 Ketones Ql (U) 5 mg/dl Negative [facility] Laboratory - Chemistry and C hemistry - challengeOrdered By: Jake Harding on 11-05-2023 Albumin/Globulin [Mass ratio] 0.6 {ratio} 0.9-2.4 [facility] ALP [Catalytic activity/Vol] 139 U/L 45-117 [facility] ALT [Catalytic activity/Vol] 52 U/L 13-56 [facility] CO2 [Moles/Vol] 25.0 mmol/L 21.0-32.0 [facility] Globulin (S) [Mass/Vol] 4.3 g/dL 2.2-4.2 [facility] Lipase [Catalytic activity/Vol] 45 U/L 13-75 [facility] Comment on above: Please note:LIPASE r evised reference range effective 23. New Lipase methodology. Expected to produce lower values than the previous assay method. NEW Reference Range: 13 - 75 U/L Urea nitrogen/Creatinine [Mass ratio] 13.7 mg/mg 10-20 [facility] Laboratory - CoagulationOrde red By: Jake Harding on 11-05-2023 INR Coag (Bld) [Relative time] 1.6 {INR} [facility] PT Coag (PPP) [Time] 19.5 s 11.7-14.9 [facility] Laboratory - Hematology and Cell countsOrdered By: Jake Harding on 11-05-2023 Anisocytosis Ql (Bld) 2+ [facility] MCH (RBC) [Entitic mass] 23.4 pg 27.0-32.0 [facility] MCHC (RBC) [Mass/Vol] 30.3 g/dL 32-[address] [facility] Nucleated RBC/100 WBC (Bld) [Ratio] 0 % 0-5 [facility] Platelet mean volume (Bld) [Entitic vol] 9.9 fL 6.2-12.0 [facility] Platelets (Bld) [#/Vol] 69 10*3/uL 150-450 [facility] - Microbiology an d Antimicrobial susceptibilityOrdered By: Jake Harding on 11-05-2023 SARS-CoV-2 (COVID-19) RNA PHYLLIS+probe Ql (Unsp spec) [facility] SARS-CoV-2 (COVID-19) RNA PHYLLIS+probe Ql (Unsp spec) [facility] Mucus LM Ql (Urine sed)Order ed By: Jake Harding on 11-05-2023 Mucus Ql (Urine sed) 1+ /hpf [facility] Nitrite Test strip Ql (U)Ord ered By: Jake Harding on 11-05-2023 Nitrite Ql (U) Negative Negative [facility] No Panel InformationOrdered By: Jake Harding on 11-05-2023 Urine RBC 0-5 SEEN /hpf 0-5 [facility] 0-5 SEEN /hpf 0-5 [facility] Estimated Creatinine Clearance Calc 81.94 ml/min [facility] Estimated GFR (MDRD) Amer 88 mL/min >60 [facility] Comment on above: GFR Calc Estimated GFR (MDRD) Non-Af Amer 73 mL/min >60 [facility] Comment on above: Non- GFR Calc 23.4 pg 27.0-32.0 [facility] 30.3 g/dL 32-36 [facility] 69 K/mm3 150-450 [facility] 9.9 fl 6.2-12.0 [facility] 0 % 0-5 [facility] 2+ [facility] 19.5 SECONDS 11.7-14.9 [facility] 1.6 [facility] 73 mL/min >60 [facility] 88 mL/min >60 [facility] 81.94 ml/min [facility] 13.7 RATIO 10-20 [facility] 4.3 g/dL 2.2-4.2 [facility] 0.6 RATIO 0.9-2.4 [facility] 45 U/L 13-75 [facility] 139 U/L 45-117 [facility] 52 U/L 13-56 [facility] 25.0 mmol/L 21.0-32.0 [facility] Protein Test strip Ql (U)Ord ered By: Jake Harding on 11-05-2023 Protein Ql (U) 30 mg/dl Negative [facility] RBC Auto (Bld) [#/Vol]Ordere d By: Jake Harding on 11-05-2023 RBC (Bld) [#/Vol] 4.02 10*6/uL 4.2-5.4 [facility] Serum or plasma calcium latrice urement (mass/volume)Ordered By: Jake Harding on 11-05-2023 Calcium [Mass/Vol] 9.0 mg/dL 8.5-10.1 [facility] Serum or plasma choriogonado tropin detectionOrdered By: Jake Harding on 11-05-2023 HCG ( test) Ql Negative [facility] Serum or plasma creatinine m easurement (mass/volume)Ordered By: Jake Harding on 11-05-2023 Creatinine [Mass/Vol] 0.88 mg/dL 0.55-1.[address] [facility] Comment on above: The validity of the calculated GFR & GFRAA in patients over 70 years has not been determined. Clinical correlation is essential. Serum or plasma urea nitroge n measurement (mass/volume)Ordered By: Jake Harding on 11-05-2023 Urea nitrogen [Mass/Vol] 12 mg/dL 7- [facility] Squamous epithelial cells de tection in urine sediment by light microscopyOrdered By: Jake Harding on 11-05-2023 Epithelial cells.squamous LM Ql (Urine sed) 10-25 SEEN /hpf 5-10 [facility] Thin prep Papanicolaou smear with manual screeningOrdered By: Jake Harding on 11-05-2023 Thin prep Papanicolaou smear with manual screening 2+ [facility] Thin prep Papanicolaou smear with manual screening 2.5 g/dL 3.2-5.0 [facility] Thin prep Papanicolaou smear with manual screening 98 U/L 15-37 [facility] Thin prep Papanicolaou smear with manual screening 2 5-15 [facility] Urine blood detectionOrdered By: Jake Harding on 11-05-2023 RBC Ql (U) 50 /ul Negative [facility] Urine clarityOrdered By: Osmany Harding on 11-05-2023 Clarity (U) Sl. Cloudy Clear [facility] Urine color determinationOrd ered By: Jake Harding on 11-05-2023 Color (U) Yellow Yellow [facility] Urine glucose detectionOrder ed By: Jake Harding on 11-05-2023 Glucose Ql (U) Normal mg/dl Normal [facility] Urine leukocyte esterase det ection by dipstickOrdered By: Jake Harding on 11-05-2023 Leukocyte esterase Test strip Ql (U) 100 /ul Negative [facility] Urine pHOrdered By: Jake adhikari on 11-05-2023 pH (U) 6.0 [pH] 5.0 - 8.0 [facility] Urine sediment bacteria coun t by microscopy (number/high power field)Ordered By: Jake Harding on 11-05-2023 Bacteria LM.HPF (Urine sed) [#/Area] RARE /hpf None Seen [facility] Urine specific gravity measu rementOrdered By: Jake Harding on 11-05-2023 Specific gravity (U) [Rel density] 1.025 1.002-1.030 [facility] Urine urobilinogen measureme ntOrdered By: Jake Harding on 11-05-2023 Urobilinogen Ql (U) 8 mg/dl Normal [facility] Absolute lymphocyte countOrd ered By: Oscar Pantoja on 2023 Lymphocytes Auto (Unsp spec) [#/Vol] 2.88 10*3/uL 0.83-4.51 [facility] Basophil percentageOrdered B y: Oscar Pantoja on 2023 Basophil percentage 2.3 mg/dL 2.5-4.9 [facility] Basophil percentage 106 mg/dL 74-106 [facility] Basophil percentage 6.8 g/dL 6.4-8.2 [facility] Basophil percentage 1.90 mg/dL 0.20-1.00 [facility] Basophil percentage 138 mmol/L 136-145 [facility] Basophil percentage 4.1 mmol/L 3.5-5.1 [facility] Basophil percentage 111 mmol/L 98-107 [facility] Basophils (Bld) [#/Vol] 10.3 10*3/uL 4.4-11.0 [facility] Basophils (Bld) [#/Vol] 5.8 10*3/uL 2.0-7.7 [facility] Basophils/100 WBC (Bld) 1.0 % 0-1 [facility] Basophils/100 WBC (Bld) 56.5 % 47-70 [facility] Basophils/100 WBC (Bld) 3.2 % 0-5 [facility] Bilirubin [Mass/Vol] 1.90 mg/dL 0.20-1.00 [facility] Comment on above: For patients on eltr ombopag therapy, use of Dimension [place] TBIL is not recommended. Chloride [Moles/Vol] 111 mmol/L 98-107 [facility] Eosinophils/100 WBC (Bld) 3.2 % 0-5 [facility] Glucose [Mass/Vol] 106 mg/dL 74-106 [facility] Comment on above: Fasting Glucose resu lt from 100 to 125 mg/dL suggests IMPAIRED HOMEOSTASIS per A.D.A. criteria. Neutrophils (Bld) [#/Vol] 5.8 10*3/uL 2.0-7.7 [facility] Neutrophils/100 WBC (Bld) 56.5 % 47-70 [facility] Potassium [Moles/Vol] 4.1 mmol/L 3.5-5.[address] [facility] Protein [Mass/Vol] 6.8 g/dL 6.4-8.2 [facility] Sodium [Moles/Vol] 138 mmol/L 136-145 [facility] WBC (Bld) [#/Vol] 10.3 10*3/uL 4.4-11.0 [facility] Blood erythrocytes count (nu mber/volume)Ordered By: Oscar Pantoja on 2023 RBC (Bld) [#/Vol] 4.21 10*6/uL 4.2-5.4 [facility] Blood hemoglobin measurement (mass/volume)Ordered By: Oscar Pantoja on 2023 Hemoglobin (Bld) [Mass/Vol] 9.6 g/dL 12.0-15.0 [facility] Blood lymphocytes/100 leukoc ytesOrdered By: Oscar Pantoja on 2023 Lymphocytes/100 WBC (Bld) 27.9 % 19-41 [facility] Blood monocytes/100 leukocyt esOrdered By: Oscar Pantoja on 2023 Monocytes/100 WBC (Bld) 11.0 % 0-10 [facility] Determination of erythrocyte mean corpuscular volume (MCV)Ordered By: Osacr Pantoja on 2023 MCV (RBC) [Entitic vol] 77.2 fL 81-99 [facility] Hematocrit Auto (Bld) [Volum e fraction]Ordered By: Oscar Pantoja on 2023 Hematocrit (Bld) [Volume fraction] 32.5 % 37-47 [facility] Laboratory - Chemistry and C hemistry - challengeOrdered By: Oscar Pantoja on 2023 ALP [Catalytic activity/Vol] 139 U/L 45-117 [facility] ALT [Catalytic activity/Vol] 64 U/L 13-56 [facility] CO2 [Moles/Vol] 22.0 mmol/L 21.0-32.0 [facility] Globulin (S) [Mass/Vol] 4.5 g/dL 2.2-4.2 [facility] Magnesium [Mass/Vol] 1.7 mg/dL 1.6-2.6 [facility] Urea nitrogen/Creatinine [Mass ratio] 5.1 mg/mg 10-20 [facility] Laboratory - Hematology and Cell countsOrdered By: Oscar Pantoja on 2023 Anisocytosis Ql (Bld) 1+ [facility] Erythrocyte distribution width (RBC) [Entitic vol] 63.6 fL 35.1-43.9 [facility] Erythrocyte distribution width (RBC) [Ratio] 22.8 % 11.6-14.6 [facility] Immature granulocytes/100 WBC (Bld) 0.400 % 0.0-0.9 [facility] Comment on above: IG% - Immature Granu locytes (promyelocytes, myelocytes and metamyelocytes) > 1% indicates that a LEFT SHIFT is Present. MCH (RBC) [Entitic mass] 22.8 pg 27.0-32.0 [facility] Nucleated RBC/100 WBC (Bld) [Ratio] 0 % 0-5 [facility] MCHC Auto (RBC) [Mass/Vol]Or dered By: Oscar Pantoja on 2023 MCHC (RBC) [Mass/Vol] 29.5 g/dL 32-[address] [facility] No Panel InformationOrdered By: Oscar Pantoja on 2023 Estimated Creatinine Clearance Calc 72.18 ml/min [facility] Estimated GFR (MDRD) Amer 77 mL/min >60 [facility] Comment on above: GFR Calc Estimated GFR (MDRD) Non-Af Amer 64 mL/min >60 [facility] Comment on above: Non- GFR Calc 22.8 pg 27.0-32.0 [facility] 22.8 % 11.6-14.6 [facility] 63.6 fl 35.1-43.9 [facility] 0.400 % 0.0-0.9 [facility] 0 % 0-5 [facility] 1+ [facility] 64 mL/min >60 [facility] 77 mL/min >60 [facility] 72.18 ml/min [facility] 5.1 RATIO 10-20 [facility] 4.5 g/dL 2.2-4.2 [facility] 139 U/L 45-117 [facility] 64 U/L 13-56 [facility] 1.7 mg/dL 1.6-2.6 [facility] 22.0 mmol/L 21.0-32.0 [facility] Platelets bldOrdered By: Carlin Pantoja on 2023 Platelets (Bld) [#/Vol] 115 10*3/uL 150-450 [facility] Serum or plasma albumin latrice urement (mass/volume)Ordered By: Oscar Pantoja on 2023 Albumin [Mass/Vol] 2.3 g/dL 3.2-5.0 [facility] Serum or plasma albumin/glob ulin mass ratioOrdered By: Oscra Pantoja on 2023 Albumin/Globulin [Mass ratio] 0.5 {ratio} 0.9-2.4 [facility] Serum or plasma calcium latrice urement (mass/volume)Ordered By: Oscar Pantoja on 2023 Calcium [Mass/Vol] 8.4 mg/dL 8.5-10.1 [facility] Serum or plasma creatinine m easurement (mass/volume)Ordered By: Oscar Pantoja on 2023 Creatinine [Mass/Vol] 0.98 mg/dL 0.55-1.[address] [facility] Comment on above: The validity of the calculated GFR & GFRAA in patients over 70 years has not been determined. Clinical correlation is essential. Serum or plasma urea nitroge n measurement (mass/volume)Ordered By: Oscar Pantoja on 2023 Urea nitrogen [Mass/Vol] 5 mg/dL 7-18 [facility] Thin prep Papanicolaou smear with manual screeningOrdered By: Oscar Pantoja on 2023 Thin prep Papanicolaou smear with manual screening 128 U/L 15-37 [facility] Thin prep Papanicolaou smear with manual screening 5 5-15 [facility] Bacteria identified Cx Nom ( U)Ordered By: Elena Hoff on 10-07-2023 Culture, urine Meth. resistant Stap h. aureus [facility] Culture, urine Meth. resistant Stap h. aureus [facility] Blood manual differential co mment interpretation (narrative result)Ordered By: Elena Hoff on 10-07-2023 Manual differential comment Eliezer (Bld) [Interp] SCANNED [facility] Body fluid appearanceOrdered By: Elena Hoff on 10-07-2023 Appearance (Body fld) CLEAR [facility] Body fluid color determinati onOrdered By: Elena Hoff on 10-07-2023 Color (Body fld) YELLOW [facility] Body fluid lactate dehydroge nase measurement (enzymatic activity/volume) by pyruvateOrdered By: Elena Hoff on 10-07-2023 LDH Pyruvate to lactate reaction (Body fld) [Catalytic activity/Vol] 53 Units/L Not Establ. [facility] Body fluid leukocytes count (number/volume)Ordered By: Elena Hoff on 10-07-2023 WBC (Body fld) [#/Vol] 0.211 10*3/uL [facility] Body fluid lymphocytes/100 l eukocytesOrdered By: Elena Hoff on 10-07-2023 Lymphocytes/100 WBC (Body fld) 39 % [facility] Body fluid macrophage countO rdered By: Elena Hoff on 10-07-2023 Macrophages (Body fld) [#/Vol] 41 % [facility] Body fluid mesothelial cell percentageOrdered By: Elena Hoff on 10-07-2023 Mesothelial cells/100 WBC (Body fld) 5 % [facility] Body fluid protein measureme nt (mass/volume)Ordered By: Elena Hoff on 10-07-2023 Protein (Body fld) [Mass/Vol] 1.0 g/dL Not Establ. [facility] Body fluid segmented neutrop hils count (number/volume)Ordered By: Elena Hoff on 10-07-2023 Segmented neutrophils (Body fld) [#/Vol] 14 % [facility] Culture, urineOrdered By: Nan Hoff on 10-07-2023 Bacteria identified Cx Nom (U) Meth. resistant Staph. aureus [facility] Bacteria identified Cx Nom (U) Meth. resistant Staph. aureus [facility] Mononuclear cells Auto (Body fld) [#/Vol]Ordered By: Elena Hoff on 10-07-2023 Mononuclear cells (Body fld) [#/Vol] 0.197 10*3/uL [facility] No Panel InformationOrdered By: Elena Hoff on 10-07-2023 Body Fluid Comment 2 SEE COMMENT [facility] Body Fluid Glucose 130 mg/dL 40-70 [facility] Body Fluid Mononuclear WBCs (%) 93.3 % [facility] Body Fluid Pathologist Comment May follow [facility] Body Fluid Polynuclear WBCs (#) 0.014 10^3/uL [facility] Body Fluid Polynuclear WBCs (%) 6.7 % [facility] Body Fluid RBC 177 /mm3 [facility] 177 /mm3 [facility] 6.7 % [facility] 93.3 % [facility] 0.014 10^3/uL [facility] SEE COMMENT [facility] 130 mg/dL 40-70 [facility] Pathologist interpretation o f Body fluid testsOrdered By: Elena Hoff on 10-07-2023 Pathologist interpretation (Body fld) [Interp] Reviewed [facility] Comment on above: Previous reported re sult: May follow Edited by: RGOSHIRA on 10/11/23:926Negative for malignant cells.Please also refer to cytology report [id number].Wilder Godfrey M.D. 10/11/23 AMENDED REPORT 10/11/2327 PATH COMM/BF previously reported as: May follow Specimen source identificati on of body fluidOrdered By: Elena Hoff on 10-07-2023 Specimen source Nom (Body fld) ASCITES FLUID [facility] Thin prep Papanicolaou smear with manual screeningOrdered By: Elena Hoff on 10-07-2023 Thin prep Papanicolaou smear with manual screening 1 % [facility] Thin prep Papanicolaou smear with manual screening 1+ [facility] Total cell countOrdered By: Elena Hoff on 10-07-2023 Cells counted Molgen (Bld/Tiss) [#] 0.276 10^3/ul 0.000-0.000 [facility] Comment on above: This is the Total Nu mber of Nucleated Cell Types in the Body Fluid. Blood platelet adequacy dete ction by light microscopyOrdered By: Darius Rosales on 10-06-2023 Platelets LM Ql (Bld) MOD DEC ADEQ [facility] Blood platelet mean volumeOr dered By: Darius Rosales on 10-06-2023 Platelet mean volume (Bld) [Entitic vol] TNP [facility] Comment on above: Test not performed Direct bilirubinOrdered By: Darius Rosales on 10-06-2023 Bilirubin.direct [Mass/Vol] 0.94 mg/dL 0.00-0.30 [facility] Hypochromatic red blood cell detectionOrdered By: Darius Rosales on 10-06-2023 Hypochromia Ql (Bld) 1+ [facility] INR in Blood by Coagulation assayOrdered By: Darius Rosales on 10-06-2023 INR Coag (Bld) [Relative time] 1.8 {INR} [facility] Laboratory - Chemistry and C hemistry - challengeOrdered By: Darius Rosales on 10-06-2023 Lipase [Catalytic activity/Vol] 38 U/L [facility] Comment on above: Please note:LIPASE r evised reference range effective 23. New Lipase methodology. Expected to produce lower values than the previous assay method. NEW Reference Range: 13 - 75 U/L Laboratory - CoagulationOrde red By: Darius Rosales on 10-06-2023 PT Coag (PPP) [Time] 21.1 s 11.7-14.9 [facility] No Panel InformationOrdered By: Darius Rosales on 10-06-2023 21.1 SECONDS 11.7-14.9 [facility] 38 U/L [facility] Ovalocyte detectionOrdered B y: Darius Rosales on 10-06-2023 Ovalocytes LM Ql (Bld) RARE [facility] RBC morphologyOrdered By: Do lucille Rosales on 10-06-2023 RBC morphology finding Nom (Bld) N CHROM NORMAL NORM C&C [facility] Basophil percentageOrdered B y: Emperatriz Craig on 09-24-2023 Basophil percentage 122 mg/dL 74-106 [facility] Basophil percentage 144 mmol/L 136-145 [facility] Basophil percentage 3.6 mmol/L 3.5-5.1 [facility] Basophil percentage 117 mmol/L 98-107 [facility] Chloride [Moles/Vol] 117 mmol/L 98-107 [facility] Glucose [Mass/Vol] 122 mg/dL 74-106 [facility] Comment on above: Fasting Glucose resu lt from 100 to 125 mg/dL suggests IMPAIRED HOMEOSTASIS per A.D.A. criteria. Potassium [Moles/Vol] 3.6 mmol/L 3.5-5.[address] [facility] Sodium [Moles/Vol] 144 mmol/L 136-145 [facility] Laboratory - Chemistry and C hemistry - challengeOrdered By: Emperatriz Craig on 09-24-2023 CO2 [Moles/Vol] 22.0 mmol/L 21.0-32.0 [facility] Urea nitrogen/Creatinine [Mass ratio] 12.0 mg/mg 10-20 [facility] Laboratory - Microbiology an d Antimicrobial susceptibilityOrdered By: Emperatriz Craig on 09-24-2023 SARS-CoV-2 (COVID-19) RNA PHYLLIS+probe Ql (Unsp spec) [facility] SARS-CoV-2 (COVID-19) RNA PHYLLIS+probe Ql (Unsp spec) [facility] No Panel InformationOrdered By: Emperatriz Craig on 09-24-2023 Estimated Creatinine Clearance Calc 53.82 ml/min [facility] Estimated GFR (MDRD) Amer 76 mL/min >60 [facility] Comment on above: GFR Calc Estimated GFR (MDRD) Non-Af Amer 63 mL/min >60 [facility] Comment on above: Non- GFR Calc 63 mL/min >60 [facility] 76 mL/min >60 [facility] 53.82 ml/min [facility] 12.0 RATIO 10 [facility] 22.0 mmol/L 21.0-32.0 [facility] Serum or plasma calcium latrice urement (mass/volume)Ordered By: Emperatriz Craig on 09-24-2023 Calcium [Mass/Vol] 8.9 mg/dL 8.5-10.1 [facility] Serum or plasma creatinine m easurement (mass/volume)Ordered By: Emperatriz Craig on 09-24-2023 Creatinine [Mass/Vol] 1.00 mg/dL 0.55-1.[address] [facility] Comment on above: The validity of the calculated GFR & GFRAA in patients over 70 years has not been determined. Clinical correlation is essential. Serum or plasma urea nitroge n measurement (mass/volume)Ordered By: Emperatriz Craig on 09-24-2023 Urea nitrogen [Mass/Vol] 12 mg/dL 7-18 [facility] Thin prep Papanicolaou smear with manual screeningOrdered By: Emperatriz Craig on 09-24-2023 Thin prep Papanicolaou smear with manual screening 5 5-15 [facility] 36on 09-20-2023 36 Unable to contact patient X2 Normal [facility] 36on 09-16-2023 36 S: Patient admitted to: [facility] 09/09/23 B: Discharged on : 09/15/23 A: Hospital follow up call initiated to discuss any medication changes, follow up appointments and discharge instructions: Small bowel obstruction R: No contact x 1 at : [phone] Normal [facility] BASIC METABOLIC PANELon 08-27 Anion gap [Moles/Vol] 5 mmol/L Normal 3-13 [facility] Comment on above: Performed By: #### L AB15 ####Vb Net Programmer: HALLEY HERNANDEZ ([phone])[facility])[address] [place] [address] Calcium [Mass/Vol] 8.3 mg/dL Low 8.4-10.4 [facility] Comment on above: Performed By: #### L AB15 ####[employer] Programmer: HALLEY HERNANDEZ ([phone])[facility] ([facility])[address] [place] [address] [place] Chloride [Moles/Vol] 107 mmol/L Normal 98-107 [facility] Comment on above: Performed By: #### L AB15 ####[employer] Programmer: HALLEY HERNANDEZ ([phone])[facility] ([facility])[address] [place] [address] [place] CO2 [Moles/Vol] 23 mmol/L Normal 22-30 [facility] Comment on above: Performed By: #### L AB15 ####[employer] Programmer: HALLEY HERNANDEZ ([phone])[facility] ([facility])[address] [place] [address] Creatinine [Mass/Vol] 0.71 mg/dL Normal 0.52-1.04 [facility] Comment on above: Performed By: #### L AB15 ####[employer] Programmer: HALLEY HERNANDEZ ([phone])[facility] ([facility])[address] [place] [address] [place] GLOMERULAR FILTRATION RATE ML/MIN/1.73 SQ M.PREDICTED >90.0 Normal >60.0 [facility] Comment on above: Result Comment: Calc ulation based on the Chronic Kidney Disease Epidemiology Collaboration (CKD-EPI) equation refit without adjustment for race Performed By: #### L AB15 ####[employer] Programmer: HALLEY HERNANDEZ ([phone])[facility])[address] [place] [address] Glucose [Mass/Vol] 128 mg/dL High 70-100 [facility] Comment on above: Performed By: #### L AB15 ####[employer] Programmer: HALLEY HERNANDEZ ([phone])[facility])[address] [place] [address] Potassium [Moles/Vol] 3.4 mmol/L Low 3.5-5.1 [facility] Comment on above: Performed By: #### L AB15 ####[employer] Programmer: HALLEY HERNANDEZ ([phone])[facility])[address] [place] [address] Sodium [Moles/Vol] 136 mmol/L Normal 135-145 [facility] Comment on above: Performed By: #### L AB15 ####V[employer] Programmer: HALLEY HERNANDEZ ([phone])[facility])[address] [place] [address] Urea nitrogen [Mass/Vol] 4 mg/dL Low 7-17 [facility] Comment on above: Performed By: #### L AB15 ####V[employer] Programmer: HALLEY HERNANDEZ ([phone])[facility])[address] [place] [address] Basic metabolic 1998 panelon 09-15-2023 Anion gap [Moles/Vol] 5 mmol/L 3 - 13 mmol/L [facility] Calcium [Mass/Vol] 8.3 mg/dL Low 8.4 - 10. 4 mg/dL [facility] Chloride [Moles/Vol] 107 mmol/L 98 - 10 7 mmol/L [facility] CO2 [Moles/Vol] 23 mmol/L 22 - 30 mmol/L [facility] Creatinine [Mass/Vol] 0.71 mg/dL 0.52 - 1.04 mg/dL [facility] GFR/1.73 sq M.predicted MDRD (S/P/Bld) [Vol rate/Area] - PINF [facility] Comment on above: Calculation based on the Chronic Kidney Disease Epidemiology Collaboration (CKD-EPI) equation refit without adjustment for race Glucose [Mass/Vol] 128 mg/dL High 70 - 100 mg/dL [facility] Interpretation and review of laboratory results Abnormal [facility] Potassium [Moles/Vol] 3.4 mmol/L Low 3.5 - 5.1 mmol/L [facility] Sodium [Moles/Vol] 136 mmol/L 135 - 145 mmol/L [facility] Urea nitrogen [Mass/Vol] 4 mg/dL Low 7 - 17 mg/dL [facility] CARECOORDon 09-15-2023 [facility] Social work follow u p on discharge. SW notified by patients bedside RN patient needs assist with transport to home. SW spoke to patient to confirm address on file is correct. She reports she typically will use her [employer] for transport and uses their [email or web address] service. SW placed call to [facility] [phone]. Transport arranged for filler picker at [address] [place] [address] between 4:12-6:12pm. They will call the unit 15 minutes prior to their arrival . Ref # [id number]. social worker clinical updated patients bedside RN, who will update the patient. Normal [facility] CBC (HEMOGRAM)on 09-15-2023 Erythrocyte distribution width (RBC) [Ratio] 21.7 % High 11.5-14.5 [facility] Comment on above: Result Comment: I-An isocytosis Performed By: #### L [id number] #### [employer] Programmer: HALLEY HERNANDEZ ([phone]) [facility] ([facility]) [address] [place] [address] ERYTHROCYTE MEAN CORPUSCULAR HEMOGLOBIN CONCENTRATION (G/DL) BY AUTOMATED 31.5 % Low 32.0-36.0 [facility] Comment on above: Performed By: #### L [id number] #### [employer] Programmer: HALLEY HERNANDEZ ([phone]) [facility] ([facility]) [address] [place] [address] Hematocrit (Bld) [Volume fraction] 25.3 % Low 35.0-47.0 [facility] Comment on above: Performed By: #### L [id number] #### [employer] Programmer: HALLEY HERNANDEZ ([phone]) [facility]) [address] [place] [address] Hemoglobin (Bld) [Mass/Vol] 8.0 g/dL Low 11.7-16.0 [facility] Comment on above: Performed By: #### L [id number] #### [employer] Programmer: HALLEY HERNANDEZ ([phone]) [facility]) [address] [place] [address] MCH (RBC) [Entitic mass] 22.7 pg Low 26.0-34.0 [facility] Comment on above: Performed By: #### L [id number] #### [employer] Programmer: HALLEY HERNANDEZ ([phone]) [facility] ([facility]) [address] [place] [address] MCV (RBC) [Entitic vol] 72.0 fL Low 80.0-98.0 [facility] Comment on above: Performed By: #### L [id number] #### [employer] Programmer: HALLEY HERNANDEZ ([phone]) [facility]) [address] [place] [address] Platelet mean volume (Bld) [Entitic vol] 9.6 fL Normal 7.4-12.4 [facility] Comment on above: Performed By: #### L [id number] #### [employer] Programmer: HALLEY HERNANDEZ ([phone]) [facility] ([facility]) [address] [place] [address] [place] Platelets (Bld) [#/Vol] 55 10*3/uL Low 140-440 [facility] Comment on above: Result Comment: I-Th rombocytopenia Performed By: #### L [id number] #### Vb Net Programmer: HALLEY HERNANDEZ ([phone]) [facility]) [address] [place] [address] RBC (Bld) [#/Vol] 3.51 10*6/uL Low 3.8-5.20 [facility] Comment on above: Performed By: #### L [id number] #### Vb Net Programmer: HALLEY HERNANDEZ ([phone]) [facility] [address] [place] [address] WBC (Bld) [#/Vol] 4.5 10*3/uL Normal 3.6-10.7 [facility] Comment on above: Performed By: #### L [id number] #### Vb Net Programmer: HALLEY HERNANDEZ ([phone]) [facility] ([facility]) [address] [place] [address] CBC panel Auto (Bld)on 09-15 Erythrocyte distribution width (RBC) [Ratio] 21.7 % High 11.5 - 14.5 % [facility] Comment on above: I-Anisocytosis Hematocrit (Bld) [Volume fraction] 25.3 % Low 35.0 - 47.0 % [facility] Hemoglobin (Bld) [Mass/Vol] 8.0 g/dL Low 11.7 - 16.0 g/dL [facility] Interpretation and review of laboratory results Abnormal [facility] MCH (RBC) [Entitic mass] 22.7 pg Low 26.0 - 34.0 pg [facility] MCHC (RBC) [Mass/Vol] 31.5 % Low 32.0 - 36.0 % [facility] MCV (RBC) [Entitic vol] 72.0 fL Low 80.0 - 98.0 fL [facility] Platelet mean volume (Bld) [Entitic vol] 9.6 fL 7.4 - 12.4 fL [facility] Platelets (Bld) [#/Vol] 55 10*3/uL Low 140 - 440 10*3/uL [facility] Comment on above: I-Thrombocytopenia RBC (Bld) [#/Vol] 3.51 10*6/uL Low 3.8 - 5.20 10*6/uL [facility] WBC (Bld) [#/Vol] 4.5 10*3/uL 3.6 - 10.7 10*3/uL [facility] Progress Noteon 09-15-2023 Progress Note Nutrition Assessment [...] (S/p paracentesis 09/14 with 1.7L removed) Ascites Content Curator Strength: Not Performed Nutrition Assessment: 47yo F [...] tolerated CLD and FLD diet with BM 12/17 and resolution of abdominal pain. Diet advanced [...] On: Kcal/kg Weight Used for Energy Requirements: [place] Weight for Energy Calculation (kg): 50 kg Total Energy Requirements (kcals/day): 27-32 kcal/kg = 6666-4461 kcal/day Weight Used for Protein Requirements: [place] Weight in Kg Used for Protein Requirements: [...] lb) (stated) % Weight Change (Calculated): 5 [place] Body Weight (lbs) (Calculated): 110 lbs [place] Body Weight (Kg) (Calculated): 50 kg % [place] Body Weight (Calculated): 190.8 % BMI (kg/m2) [...] Edema, Hemodynamic (more content not included)... Normal [facility] BASIC METABOLIC PANELon 12-2 Anion gap [Moles/Vol] 5 mmol/L Normal 3-13 [facility] Comment on above: Performed By: #### L [id number] ####Vb Net Programmer: HALLEY HERNANDEZ ([phone])[address] Calcium [Mass/Vol] 8.2 mg/dL Low 8.4-10.4 [facility] Comment on above: Performed By: #### L [id number] ####Vb Net Programmer: HALLEY HERNANDEZ ([phone])[facility])[address] [place] [address] Chloride [Moles/Vol] 110 mmol/L High 98-107 [facility] Comment on above: Performed By: #### L [id number] ####Vb Net Programmer: HALLEY HERNANDEZ ([phone])[facility])[address] [place] [address] CO2 [Moles/Vol] 21 mmol/L Low 22-30 [facility] Comment on above: Performed By: #### L [id number] ####Vb Net Programmer: HALLEY HERNANDEZ ([phone])[facility])[address] [place] [address] Creatinine [Mass/Vol] 0.62 mg/dL Normal 0.52-1.04 [facility] Comment on above: Performed By: #### L [id number] ####Vb Net Programmer: HALLEY HERNANDEZ ([phone])[facility])[address] [place] [address] GLOMERULAR FILTRATION RATE ML/MIN/1.73 SQ M.PREDICTED >90.0 Normal >60.0 [facility] Comment on above: Result Comment: Calc ulation based on the Chronic Kidney Disease Epidemiology Collaboration (CKD-EPI) equation refit without adjustment for race Performed By: #### L [id number] ####Vb Net Programmer: HALLEY HERNANDEZ ([phone])[facility] ([facility])[address] [place] [address] Glucose [Mass/Vol] 145 mg/dL High 70-100 [facility] Comment on above: Performed By: #### L [id number] ####Vb Net Programmer: HALLEY HERNANDEZ ([phone])[facility])[address] [place] [address] Potassium [Moles/Vol] 3.7 mmol/L Normal 3.5-5.1 [facility] Comment on above: Performed By: #### L [id number] ####Vb Net Programmer: HALLEY HERNANDEZ ([phone])[facility] ([facility])[address] [place] [address] Sodium [Moles/Vol] 136 mmol/L Normal 135-145 [facility] Comment on above: Performed By: #### L [id number] ####Vb Net Programmer: HALLEY HERNANDEZ ([phone])[facility])[address] [place] [address] Urea nitrogen [Mass/Vol] 4 mg/dL Low 7-17 [facility] Comment on above: Performed By: #### L [id number] ####Vb Net Programmer: HALLEY HERNANDEZ ([phone])[facility])[address] [place] [address] Basic metabolic 1998 panelon 09-14-2023 Anion gap [Moles/Vol] 5 mmol/L 3 - 13 mmol/L [facility] Calcium [Mass/Vol] 8.2 mg/dL Low 8.4 - 10. 4 mg/dL [facility] Chloride [Moles/Vol] 110 mmol/L High 98 - 10 7 mmol/L [facility] CO2 [Moles/Vol] 21 mmol/L Low 22 - 30 mmol/L [facility] Creatinine [Mass/Vol] 0.62 mg/dL 0.52 - 1.04 mg/dL [facility] GFR/1.73 sq M.predicted MDRD (S/P/Bld) [Vol rate/Area] - PINF [facility] Comment on above: Calculation based on the Chronic Kidney Disease Epidemiology Collaboration (CKD-EPI) equation refit without adjustment for race Glucose [Mass/Vol] 145 mg/dL High 70 - 100 mg/dL [facility] Interpretation and review of laboratory results Abnormal [facility] Potassium [Moles/Vol] 3.7 mmol/L 3.5 - 5.1 mmol/L [facility] Sodium [Moles/Vol] 136 mmol/L 135 - 145 mmol/L [facility] Urea nitrogen [Mass/Vol] 4 mg/dL Low 7 - 17 mg/dL [facility] CARECOORDon 09-14-2023 [place]ORD Chart reviewed. Tamie ent had paracentesis today with 1700 ml removed. Surgery is following patient for likely ileus -->no plans for intervention and recommend ADAT. Current discharge plan is home no needs once medically stable. Normal [facility] CBC (HEMOGRAM)on 09-14-2023 Erythrocyte distribution width (RBC) [Ratio] 21.3 % High 11.5-14.5 [facility] Comment on above: Result Comment: I-An isocytosis Performed By: #### L [id number] #### Vb Net Programmer: JAVID LUTHER ([phone]) [facility] ([facility]) [address] ERYTHROCYTE MEAN CORPUSCULAR HEMOGLOBIN CONCENTRATION (G/DL) BY AUTOMATED 31.7 % Low 32.0-36.0 [facility] Comment on above: Performed By: #### L [id number] #### Vb Net Programmer: JAVID LUTHER ([id number]) [facility] ([facility]) [address] Hematocrit (Bld) [Volume fraction] 24.9 % Low 35.0-47.0 [facility] Comment on above: Performed By: #### L [id number] #### Vb Net Programmer: JAVID LUTHER ([id number]) [facility] ([facility]) [address] Hemoglobin (Bld) [Mass/Vol] 7.9 g/dL Low 11.7-16.0 [facility] Comment on above: Performed By: #### L [id number] #### Vb Net Programmer: JAVID LUTHER ([phone]) [facility] ([facility]) [address] MCH (RBC) [Entitic mass] 22.9 pg Low 26.0-34.0 [facility] Comment on above: Performed By: #### L [id number] #### Vb Net Programmer: JAVID LUTHER ([id number]) [facility] ([facility]) [address] MCV (RBC) [Entitic vol] 72.1 fL Low 80.0-98.0 [facility] Comment on above: Performed By: #### L [id number] #### Vb Net Programmer: JAVID LUTHER ([phone]) [facility] ([facility]) [address] Platelet mean volume (Bld) [Entitic vol] 9.1 fL Normal 7.4-12.4 [facility] Comment on above: Performed By: #### L [id number] #### Vb Net Programmer: JAVID LUTHER ([phone]) [facility] ([facility]) [address] [place] [address] [place] Platelets (Bld) [#/Vol] 59 10*3/uL Low 140-440 [facility] Comment on above: Result Comment: I-Th rombocytopenia Performed By: #### L [id number] #### Vb Net Programmer: JAVID LUTHER ([id number]) [facility] ([facility]) [address] RBC (Bld) [#/Vol] 3.45 10*6/uL Low 3.8-5.20 [facility] Comment on above: Performed By: #### L [id number] #### Vb Net Programmer: JAVID LUTHER ([id number]) [facility] ([facility]) [address] WBC (Bld) [#/Vol] 4.6 10*3/uL Normal 3.6-10.7 [facility] Comment on above: Performed By: #### L [id number] #### Vb Net Programmer: JAVID LUTHER ([phone]) [facility] ([facility]) [address] [place] [address] CBC panel Auto (Bld)Ordered By: Brooklyn Salter on 09-14-2023 Erythrocyte distribution width (RBC) [Ratio] 21.3 % High 11.5 - 14.5 % [facility] Comment on above: I-Anisocytosis Hematocrit (Bld) [Volume fraction] 24.9 % Low 35.0 - 47.0 % [facility] Hemoglobin (Bld) [Mass/Vol] 7.9 g/dL Low 11.7 - 16.0 g/dL [facility] Interpretation and review of laboratory results Abnormal [facility] MCH (RBC) [Entitic mass] 22.9 pg Low 26.0 - 34.0 pg [facility] MCHC (RBC) [Mass/Vol] 31.7 % Low 32.0 - 36.0 % [facility] MCV (RBC) [Entitic vol] 72.1 fL Low 80.0 - 98.0 fL [facility] Platelet mean volume (Bld) [Entitic vol] 9.1 fL 7.4 - 12.4 fL [facility] Platelets (Bld) [#/Vol] 59 10*3/uL Low 140 - 440 10*3/uL [facility] Comment on above: I-Thrombocytopenia RBC (Bld) [#/Vol] 3.45 10*6/uL Low 3.8 - 5.20 10*6/uL [facility] WBC (Bld) [#/Vol] 4.6 10*3/uL 3.6 - 10.7 10*3/uL [facility] Guidance for paracentesis of Peritoneumon [...] PA-C Electronically Signed Date/Time: 09/14/2023 11:36 AM [facility] RADIOLOGY [facility] Patient Name: CAROLINA HIGHTOWER : 1975 [id number] Exam Date/Time: 09/14/2023 09:36 Procedure: US GUIDED ABDOMINAL PARACENTESIS Ordering Provider: LIM HARIKRISHNA Reason For Exam: Abdominal distention, pain PROCEDURE: Ultrasound-guided paracentesis PROCEDURAL PERSONNEL Advanced Practice Provider: Windy Pastor PA-C Attending physician, Max Huerta M.D., was available in the department if needed. Indication: Ascites Additional clinical history: None Complications: No immediate complications. [facility] RADIOLOG[facility] Windy Pastor PA -C - 09/14/2023 Patient Name: CAROLINA HIGHTOWER : 1975 [facility]#: [id number] Exam Date/Time: 09/14/2023 09:36 Procedure: US GUIDED [...] Electronically Signed Date/Time: 09/14/2023 11:36 AM EST [facility] Radiology Study observation (narrative) [facility] Guidance for paracentesis of PeritoneumOrdered By: Windy Pastor on 09-14-2023 [facility] [employer] Work Phone: Nursing Noteon 09-14-2023 Nursing Note Patient to ultrasoun d department for paracentesis. History, medications and allergies reviewed. Samuel Pastor PA-C in to speak with patient. Informed consent obtained. 1700 mL clear yellow colored fluid removed. Patient tolerated procedure well. Bandaid applied to site. Patient discharged to 7W Normal [facility] US GUIDED ABDOMINAL PARACENT ESISon 09-14-2023 US [...] Signed Date/Time: 09/14/2023 11:36 AM EST Normal [facility] BASIC METABOLIC PANELon 12- Anion gap [Moles/Vol] 4 mmol/L Normal 3-13 [facility] Comment on above: Performed By: #### L [id number] ####Vb Net Programmer: HALLEY HERNANDEZ ([phone])[facility])[address] [place] [address] Calcium [Mass/Vol] 8.3 mg/dL Low 8.4-10.4 [facility] Comment on above: Performed By: #### L [id number] ####Vb Net Programmer: HALLEY HERNANDEZ ([phone])[facility] ([facility])[address] [place] [address] Chloride [Moles/Vol] 113 mmol/L High 98-107 [facility] Comment on above: Performed By: #### L [id number] ####Vb Net Programmer: HALLEY HERNANDEZ ([phone])[facility])[address] [place] [address] CO2 [Moles/Vol] 21 mmol/L Low 22-30 [facility] Comment on above: Performed By: #### L [id number] ####Vb Net Programmer: HALLEY HERNANDEZ ([phone])[facility] ([facility])[address] [place] [address] Creatinine [Mass/Vol] 0.68 mg/dL Normal 0.52-1.04 [facility] Comment on above: Performed By: #### L [id number] ####Vb Net Programmer: HALLEY HERNANDEZ ([phone])[facility])[address] [place] [address] GLOMERULAR FILTRATION RATE ML/MIN/1.73 SQ M.PREDICTED >90.0 Normal >60.0 [facility] Comment on above: Result Comment: Calc ulation based on the Chronic Kidney Disease Epidemiology Collaboration (CKD-EPI) equation refit without adjustment for race Performed By: #### L [id number] ####Vb Net Programmer: HALLEY HERNANDEZ ([phone])[facility] ([facility])[address] [place] [address] Glucose [Mass/Vol] 136 mg/dL High 70-100 [facility] Comment on above: Performed By: #### L [id number] ####Vb Net Programmer: HALLEY HERNANDEZ ([phone])[facility])[address] [place] [address] Potassium [Moles/Vol] 3.9 mmol/L Normal 3.5-5.1 [facility] Comment on above: Performed By: #### L [id number] ####Vb Net Programmer: HALLEY HERNANDEZ ([phone])[facility] ([facility])[address] [place] [address] Sodium [Moles/Vol] 137 mmol/L Normal 135-145 [facility] Comment on above: Performed By: #### L [id number] ####Vb Net Programmer: HALLEY HERNANDEZ ([phone])[facility])[address] [place] [address] Urea nitrogen [Mass/Vol] 2 mg/dL Low 7-17 [facility] Comment on above: Performed By: #### L [id number] ####Vb Net Programmer: HALLEY HERNANDEZ ([phone])[facility])[address] [place] [address] Basic metabolic 1998 panelon 09-13-2023 Anion gap [Moles/Vol] 4 mmol/L 3 - 13 mmol/L [facility] Calcium [Mass/Vol] 8.3 mg/dL Low 8.4 - 10. 4 mg/dL [facility] Chloride [Moles/Vol] 113 mmol/L High 98 - 10 7 mmol/L [facility] CO2 [Moles/Vol] 21 mmol/L Low 22 - 30 mmol/L [facility] Creatinine [Mass/Vol] 0.68 mg/dL 0.52 - 1.04 mg/dL [facility] GFR/1.73 sq M.predicted MDRD (S/P/Bld) [Vol rate/Area] - PINF [facility] Comment on above: Calculation based on the Chronic Kidney Disease Epidemiology Collaboration (CKD-EPI) equation refit without adjustment for race Glucose [Mass/Vol] 136 mg/dL High 70 - 100 mg/dL [facility] Interpretation and review of laboratory results Abnormal [facility] Potassium [Moles/Vol] 3.9 mmol/L 3.5 - 5.1 mmol/L [facility] Sodium [Moles/Vol] 137 mmol/L 135 - 145 mmol/L [facility] Urea nitrogen [Mass/Vol] 2 mg/dL Low 7 - 17 mg/dL [facility] CBC (HEMOGRAM)on 09-13-2023 Erythrocyte distribution width (RBC) [Ratio] 21.1 % High 11.5-14.5 [facility] Comment on above: Result Comment: I-An isocytosis Performed By: #### L [id number] ####Vb Net Programmer: HALLEY HERNANEDZ ([phone])[address] ERYTHROCYTE MEAN CORPUSCULAR HEMOGLOBIN CONCENTRATION (G/DL) BY AUTOMATED 31.0 % Low 32.0-36.0 [facility] Comment on above: Performed By: #### L [id number] ####Vb Net Programmer: HALLEY HERNANDEZ ([phone])[address] Hematocrit (Bld) [Volume fraction] 26.1 % Low 35.0-47.0 [facility] Comment on above: Performed By: #### L [id number] ####Vb Net Programmer: HALLEY HERNANDEZ ([phone])[facility])[address] [place] [address] Hemoglobin (Bld) [Mass/Vol] 8.1 g/dL Low 11.7-16.0 [facility] Comment on above: Performed By: #### L [id number] ####Vb Net Programmer: HALLEY HERNANDEZ ([phone])[facility] ([facility])[address] [place] [address] MCH (RBC) [Entitic mass] 22.4 pg Low 26.0-34.0 [facility] Comment on above: Performed By: #### L [id number] ####Vb Net Programmer: HALLEY HERNANDEZ ([phone])[facility])[address] [place] [address] MCV (RBC) [Entitic vol] 72.4 fL Low 80.0-98.0 [facility] Comment on above: Performed By: #### L [id number] ####Vb Net Programmer: HALLEY HERNANDEZ ([phone])[facility])[address] [place] [address] Platelet mean volume (Bld) [Entitic vol] 8.8 fL Normal 7.4-12.4 [facility] Comment on above: Performed By: #### L [id number] ####Vb Net Programmer: HALLEY HERNANDEZ ([phone])[facility] ([facility])[address] [place] [address] Platelets (Bld) [#/Vol] 56 10*3/uL Low 140-440 [facility] Comment on above: Result Comment: I-Th rombocytopenia Performed By: #### L [id number] ####Vb Net Programmer: HALLEY HERNANDEZ ([phone])[facility])[address] [place] [address] RBC (Bld) [#/Vol] 3.60 10*6/uL Low 3.8-5.20 [facility] Comment on above: Performed By: #### L [id number] ####Vb Net Programmer: HALLEY HERNANDEZ ([phone])[facility])[address] [place] [address] WBC (Bld) [#/Vol] 4.4 10*3/uL Normal 3.6-10.7 [facility] Comment on above: Performed By: #### L [id number] ####Vb Net Programmer: HALLEY HERNANDEZ ([phone])[facility] [place] [address] CBC panel Auto (Bld)Ordered By: Robin Riojas on 09-13-2023 Erythrocyte distribution width (RBC) [Ratio] 21.1 % High 11.5 - 14.5 % [facility] Comment on above: I-Anisocytosis Hematocrit (Bld) [Volume fraction] 26.1 % Low 35.0 - 47.0 % [facility] Hemoglobin (Bld) [Mass/Vol] 8.1 g/dL Low 11.7 - 16.0 g/dL [facility] Interpretation and review of laboratory results Abnormal [facility] MCH (RBC) [Entitic mass] 22.4 pg Low 26.0 - 34.0 pg [facility] MCHC (RBC) [Mass/Vol] 31.0 % Low 32.0 - 36.0 % [facility] MCV (RBC) [Entitic vol] 72.4 fL Low 80.0 - 98.0 fL [facility] Platelet mean volume (Bld) [Entitic vol] 8.8 fL 7.4 - 12.4 fL [facility] Platelets (Bld) [#/Vol] 56 10*3/uL Low 140 - 440 10*3/uL [facility] Comment on above: I-Thrombocytopenia RBC (Bld) [#/Vol] 3.60 10*6/uL Low 3.8 - 5.20 10*6/uL [facility] WBC (Bld) [#/Vol] 4.4 10*3/uL 3.6 - 10.7 10*3/uL [facility] AMMONIAon 09-12-2023 Ammonia (P) [Moles/Vol] 42 umol/L High 9-30 [facility] Comment on above: Performed By: #### L [id number] ####Vb Net Programmer: HALLEY HERNANDEZ ([phone])[facility] ([facility])[address] [place] [address] CARECOORDon 09-12-2023 [facility] Care Managment Initi al Assessment Date: 09/12/2023 Patient Name: Carolina Hightower : 1975 Patient Information Source of Information: Patient Cognition/Language: WFL - Within Functional Limits 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 Meg Herrmann RN Normal [facility] CBC (HEMOGRAM)on 09-12-2023 Erythrocyte distribution width (RBC) [Ratio] 21.1 % High 11.5-14.5 [facility] Comment on above: Result Comment: I-An isocytosis Performed By: #### L [id number] #### Vb Net Programmer: JAVID LUTHER ([phone]) [facility] ([facility]) [address] [place] [address] ERYTHROCYTE MEAN CORPUSCULAR HEMOGLOBIN CONCENTRATION (G/DL) BY AUTOMATED 31.5 % Low 32.0-36.0 [facility] Comment on above: Performed By: #### L [id number] #### Vb Net Programmer: JAVID LUTHER ([phone]) [facility] ([facility]) [address] Hematocrit (Bld) [Volume fraction] 25.0 % Low 35.0-47.0 [facility] Comment on above: Performed By: #### L [id number] #### Vb Net Programmer: JAVID LUTHER ([phone]) [facility] ([facility]) [address] Hemoglobin (Bld) [Mass/Vol] 7.9 g/dL Low 11.7-16.0 [facility] Comment on above: Performed By: #### L [id number] #### Vb Net Programmer: JAVID VASQUEZRITA ([phone]) [facility] ([facility]) [address] MCH (RBC) [Entitic mass] 22.5 pg Low 26.0-34.0 [facility] Comment on above: Performed By: #### L [id number] #### Vb Net Programmer: JAVID LUTHER ([id number]) [facility] ([facility]) [address] MCV (RBC) [Entitic vol] 71.5 fL Low 80.0-98.0 [facility] Comment on above: Performed By: #### L [id number] #### Vb Net Programmer: JAVID LUTHER ([phone]) [facility] ([facility]) [address] Platelet mean volume (Bld) [Entitic vol] 8.9 fL Normal 7.4-12.4 [facility] Comment on above: Performed By: #### L [id number] #### Vb Net Programmer: JAVID LUTHER ([phone]) [facility] ([facility]) [address] [place] [address] [place] Platelets (Bld) [#/Vol] 58 10*3/uL Low 140-440 [facility] Comment on above: Result Comment: I-Th rombocytopenia Performed By: #### L [id number] #### Vb Net Programmer: JAVID MARTINEZCER ([id number]) [facility]) [address] RBC (Bld) [#/Vol] 3.50 10*6/uL Low 3.8-5.20 [facility] Comment on above: Performed By: #### L [id number] #### Vb Net Programmer: JAVID LUTHER ([id number]) [facility] ([facility]) [address] WBC (Bld) [#/Vol] 5.1 10*3/uL Normal 3.6-10.7 [facility] Comment on above: Performed By: #### L [id number] #### Vb Net Programmer: JAVID LTUHER ([phone]) [facility] ([facility]) [address] [place] [address] CBC panel Auto (Bld)Ordered By: Luis Alfredo Brand on 09-12-2023 Erythrocyte distribution width (RBC) [Ratio] 21.1 % High 11.5 - 14.5 % [facility] Comment on above: I-Anisocytosis Hematocrit (Bld) [Volume fraction] 25.0 % Low 35.0 - 47.0 % [facility] Hemoglobin (Bld) [Mass/Vol] 7.9 g/dL Low 11.7 - 16.0 g/dL [facility] Interpretation and review of laboratory results Abnormal [facility] MCH (RBC) [Entitic mass] 22.5 pg Low 26.0 - 34.0 pg [facility] MCHC (RBC) [Mass/Vol] 31.5 % Low 32.0 - 36.0 % [facility] MCV (RBC) [Entitic vol] 71.5 fL Low 80.0 - 98.0 fL [facility] Platelet mean volume (Bld) [Entitic vol] 8.9 fL 7.4 - 12.4 fL [facility] Platelets (Bld) [#/Vol] 58 10*3/uL Low 140 - 440 10*3/uL [facility] Comment on above: I-Thrombocytopenia RBC (Bld) [#/Vol] 3.50 10*6/uL Low 3.8 - 5.20 10*6/uL [facility] WBC (Bld) [#/Vol] 5.1 10*3/uL 3.6 - 10.7 10*3/uL [facility] COMPREHENSIVE METABOLIC PANE [place] 09-12-2023 Albumin [Mass/Vol] 2.9 g/dL Low 3.5-5.0 [facility] Comment on above: Performed By: #### L AB17, [id number] ####Vb Net Programmer: HALLEY HERNANDEZ ([phone])[facility] ([facility])[address] [place] [address] ALP [Catalytic activity/Vol] 112 U/L Normal 38-126 [facility] Comment on above: Performed By: #### L AB17, [id number] ####Vb Net Programmer: HALLEY HERNANDEZ ([phone])[facility] ([facility])[address] [place] [address] ALT [Catalytic activity/Vol] 54 U/L High 0-34 [facility] Comment on above: Performed By: #### L AB17, [id number] ####Vb Net Programmer: HALLEY HERNANDEZ ([phone])[facility] ([facility])[address] [place] [address] Anion gap [Moles/Vol] 6 mmol/L Normal 3-13 [facility] Comment on above: Performed By: #### L AB17, [id number] ####Vb Net Programmer: HALLEY HERNANDEZ ([phone])[facility] ([facility])[address] [place] [address] [place] AST [Catalytic activity/Vol] 106 U/L High 15-46 [facility] Comment on above: Performed By: #### L AB17, [id number] ####Vb Net Programmer: HALLEY HERNANDEZ ([phone])[facility] ([facility])[address] [place] [address] [place] Bilirubin [Mass/Vol] 1.9 mg/dL High 0.2-1.3 [facility] Comment on above: Performed By: #### L AB17, [id number] ####Vb Net Programmer: HALLEY HERNANDEZ ([phone])[facility])[address] [place] [address] Calcium [Mass/Vol] 8.7 mg/dL Normal 8.4-10.4 [facility] Comment on above: Performed By: #### L AB17, [id number] ####Vb Net Programmer: HALLEY HERNANDEZ ([phone])[facility] ([facility])[address] [place] [address] Chloride [Moles/Vol] 111 mmol/L High 98-107 [facility] Comment on above: Performed By: #### L AB17, [id number] ####Vb Net Programmer: HALLEY HERNANDEZ ([phone])[facility] ([facility])[address] [place] [address] CO2 [Moles/Vol] 19 mmol/L Low 22-30 [facility] Comment on above: Performed By: #### L AB17, [id number] ####Vb Net Programmer: HALLEY HERNANDEZ ([phone])[facility] ([facility])[address] [place] [address] Creatinine [Mass/Vol] 0.64 mg/dL Normal 0.52-1.04 [facility] Comment on above: Performed By: #### L AB17, [id number] ####Vb Net Programmer: HALLEY HERNANDEZ ([phone])[facility])[address] [place] [address] GLOMERULAR FILTRATION RATE ML/MIN/1.73 SQ M.PREDICTED >90.0 Normal >60.0 [facility] Comment on above: Result Comment: Calc ulation based on the Chronic Kidney Disease Epidemiology Collaboration (CKD-EPI) equation refit without adjustment for race Performed By: #### L AB17, [id number] ####Vb Net Programmer: HALLEY HERNANDEZ ([phone])[facility] ([facility])[address] [place] [address] [place] Glucose [Mass/Vol] 110 mg/dL High 70-100 [facility] Comment on above: Performed By: #### L AB17, [id number] ####Vb Net Programmer: HALLEY HERNANDEZ ([phone])[facility] ([facility])[address] [place] [address] Potassium [Moles/Vol] 3.9 mmol/L Normal 3.5-5.1 [facility] Comment on above: Performed By: #### L AB17, [id number] ####Vb Net Programmer: HALLEY HERNANDEZ ([phone])[facility] ([facility])[address] [place] [address] Protein [Mass/Vol] 6.1 g/dL Low 6.3-8.2 [facility] Comment on above: Performed By: #### L AB17, [id number] ####Vb Net Programmer: HALLEY HERNANDEZ ([phone])[facility] ([facility])[address] [place] [address] Sodium [Moles/Vol] 136 mmol/L Normal 135-145 [facility] Comment on above: Performed By: #### L AB17, [id number] ####Vb Net Programmer: HALLEY HERNANDEZ ([phone])[facility] ([facility])[address] [place] [address] Urea nitrogen [Mass/Vol] 3 mg/dL Low 7-17 [facility] Comment on above: Performed By: #### L AB17, [id number] ####Vb Net Programmer: HALLEY HERNANDEZ ([phone])[facility])[address] [place] [address] Comprehensive metabolic 1998 panelon 09-12-2023 Albumin [Mass/Vol] 2.9 g/dL Low 3.5 - 5.0 g/dL [facility] ALP [Catalytic activity/Vol] 112 U/L 38 - 126 U/L [facility] ALT [Catalytic activity/Vol] 54 U/L High 0 - 34 U/L [facility] Anion gap [Moles/Vol] 6 mmol/L 3 - 13 mmol/L [facility] AST [Catalytic activity/Vol] 106 U/L High 15 - 46 U/L [facility] Bilirubin [Mass/Vol] 1.9 mg/dL High 0.2 - 1 .3 mg/dL [facility] Calcium [Mass/Vol] 8.7 mg/dL 8.4 - 10. 4 mg/dL [facility] Chloride [Moles/Vol] 111 mmol/L High 98 - 10 7 mmol/L [facility] CO2 [Moles/Vol] 19 mmol/L Low 22 - 30 mmol/L [facility] Creatinine [Mass/Vol] 0.64 mg/dL 0.52 - 1.04 mg/dL [facility] GFR/1.73 sq M.predicted MDRD (S/P/Bld) [Vol rate/Area] - PINF [facility] Comment on above: Calculation based on the Chronic Kidney Disease Epidemiology Collaboration (CKD-EPI) equation refit without adjustment for race Glucose [Mass/Vol] 110 mg/dL High 70 - 100 mg/dL [facility] Interpretation and review of laboratory results Abnormal [facility] Potassium [Moles/Vol] 3.9 mmol/L 3.5 - 5.1 mmol/L [facility] Protein [Mass/Vol] 6.1 g/dL Low 6.3 - 8.2 g/dL [facility] Sodium [Moles/Vol] 136 mmol/L 135 - 145 mmol/L [facility] Urea nitrogen [Mass/Vol] 3 mg/dL Low 7 - 17 mg/dL [facility] Laboratory - Chemistry and C hemistry - challengeon 09-12-2023 Magnesium [Mass/Vol] 1.6 mg/dL 1.6 - 2 .3 mg/dL [facility] Ammonia (P) [Moles/Vol] 42 umol/L High 9 - 30 umol/L [facility] MAGNESIUMon 09-12-2023 Magnesium [Mass/Vol] 1.6 mg/dL Normal 1.6-2.3 [facility] Comment on above: Performed By: #### L AB17, [id number] ####Vb Net Programmer: HALLEY HERNANDEZ ([phone])[facility] ([address] Magnesium [Mass/Vol]on 09-12 Interpretation and review of laboratory results Normal [facility] No Panel Informationon 09-12 [facility] Interpretation and review of laboratory results Abnormal [facility] Progress Noteon 09-12-2023 Progress Note --- [...] of Trauma Department of Surgery [facility] ~~~~~~~~~~~~~~~~~~~~~~~ ~~~~~~~~~~~~~~~~~~~~~~~ ~~~~~~~~~~~~~~~ This note may have been dictated using [employer] Medical Practice Edition 2.6 and/or [employer] Voice Recognition Feature. The document was proofread; however, unrecognized voice recognition law researcher errors may be present. Department of General [...] Range Status (more content not included)... Normal [facility] Progress Note [facility] STEELE ADMISSION MEDICATION RECONCILIATION Date: 09/12/23 [facility] Patient Name: Carolina Hightower Allergies: [...] on last fill dates from patient's [facility]. Home medications to restart if there [...] PM 09/12/2023 4:18 PM Kaylin Camarillo, PharmD Progress Note Nutrition Assessment Type and Reason [...] muscle mass loss Fluid Accumulation: Mild Ascites Content Curator Strength: Not Performed Nutrition Assessment: 47yo F [...] On: Kcal/kg Weight Used for Energy Requirements: [place] Weight for Energy Calculation (kg): 50 kg Total Energy Requirements (kcals/day): 27-32 kcal/kg = 1534-2092 kcal/day Weight Used for Protein Requirements: [place] Weight in Kg Used for Protein Requirements: [...] 05/26/22 198#) % Weight Change (Calculated): 2.8 [place] Body Weight (lbs) (Calculated): 110 lbs [place] Body Weight (Kg) (Calculated): 50 kg % [place] Body Weight (Calculated): 186.9 % BMI (kg/m2) [...] to determ (more content not included)... Normal [facility] AMMONIAon 09-11-2023 Ammonia (P) [Moles/Vol] 65 umol/L High 9-30 [facility] Comment on above: Performed By: #### L AB47 ####Vb Net Programmer: HALLEY HERNANDEZ ([phone])[address] BILIRUBIN, DIRECTon 09-11-20 Bilirubin.indirect [Mass/Vol] 0.0 mg/dL Normal 0.0-0.3 [facility] Comment on above: Performed By: #### L AB52, LAB17 ####Vb Net Programmer: HALLEY HERNANDEZ ([phone])[facility] ([facility])[address] [place] [address] Bilirubin.indirect [Mass/Vol ]on 09-11-2023 Bilirubin.conjugated [Mass/Vol] 0.0 mg/dL 0.0 - 0.3 mg/dL [facility] Interpretation and review of laboratory results Normal [facility] CARECOORDon 09-11-2023 [facility] Attempted to complet e Initial assessment over the phone. Patient currently unavailable/off unit. Will try again as time allows. TCC will follow. Normal [facility] CBC W Auto Differential pane l (Bld)on 09-11-2023 Basophils (Bld) [#/Vol] 0.0 10*3/uL 0.0 - 0.2 10*3/uL [facility] Basophils/100 WBC (Bld) 0.5 % 0.0 - 2.0 % [facility] Eosinophils (Bld) [#/Vol] 0.3 10*3/uL 0.0 - 0.5 10*3/uL [facility] Eosinophils/100 WBC (Bld) 4.4 % 1.0 - 6.0 % [facility] Erythrocyte distribution width (RBC) [Ratio] 21.6 % High 11.5 - 14.5 % [facility] Comment on above: I-Anisocytosis Hematocrit (Bld) [Volume fraction] 27.4 % Low 35.0 - 47.0 % [facility] Hemoglobin (Bld) [Mass/Vol] 8.6 g/dL Low 11.7 - 16.0 g/dL [facility] Interpretation and review of laboratory results Abnormal [facility] Lymphocytes (Bld) [#/Vol] 1.6 10*3/uL 1.0 - 4.3 10*3/uL [facility] Lymphocytes/100 WBC (Bld) 20.6 % 20.0 - 40.0 % [facility] MCH (RBC) [Entitic mass] 22.5 pg Low 26.0 - 34.0 pg [facility] MCHC (RBC) [Mass/Vol] 31.2 % Low 32.0 - 36.0 % [facility] MCV (RBC) [Entitic vol] 72.2 fL Low 80.0 - 98.0 fL [facility] [employer] Monocytes (Bld) [#/Vol] 0.9 10*3/uL High 0.0 - 0.8 10*3/uL [facility] Monocytes/100 WBC (Bld) 10.9 % High 2.0 - 10.0 % [facility] Neutrophils (Bld) [#/Vol] 5.0 10*3/uL 1.8 - 7.0 10*3/uL [facility] Neutrophils/100 WBC (Bld) 63.6 % 40.0 - 80.0 % [facility] Nucleated RBC/100 WBC (Bld) [Ratio] 0.0 % [facility] [employer] Platelet mean volume (Bld) [Entitic vol] 8.5 fL 7.4 - 12.4 fL [facility] Platelets (Bld) [#/Vol] 61 10*3/uL Low 140 - 440 10*3/uL [facility] Comment on above: I-Thrombocytopenia RBC (Bld) [#/Vol] 3.80 10*6/uL 3.8 - 5.20 10*6/uL [facility] WBC (Bld) [#/Vol] 7.9 10*3/uL 3.6 - 10.7 10*3/uL [facility] CBC WITH AUTO DIFFERENTIALon 09-11-2023 Basophils (Bld) [#/Vol] 0.0 10*3/uL Normal 0.0-0.2 [facility] Comment on above: Performed By: #### L [id number] ####Vb Net Programmer: HALLEY [phone])[address] Basophils/100 WBC (Bld) 0.5 % Normal 0.0-2.0 [facility] Comment on above: Performed By: #### L [id number] ####Vb Net Programmer: HALLEY [phone])[address] Eosinophils (Bld) [#/Vol] 0.3 10*3/uL Normal 0.0-0.5 [facility] Comment on above: Performed By: #### L [id number] ####Vb Net Programmer: HALLEY [phone])[facility] [place] [address] Eosinophils/100 WBC (Bld) 4.4 % Normal 1.0-6.0 [facility] Comment on above: Performed By: #### L [id number] ####Vb Net Programmer: HALLEY HERNANDEZ ([phone])[facility])[address] [place] [address] Erythrocyte distribution width (RBC) [Ratio] 21.6 % High 11.5-14.5 [facility] Comment on above: Result Comment: I-An isocytosis Performed By: #### L [id number] ####Vb Net Programmer: HALLEY HERNANDEZ ([phone])[facility])[address] [place] [address] ERYTHROCYTE MEAN CORPUSCULAR HEMOGLOBIN CONCENTRATION (G/DL) BY AUTOMATED 31.2 % Low 32.0-36.0 [facility] Comment on above: Performed By: #### L [id number] ####Vb Net Programmer: HALLEY HERNANDEZ ([phone])[facility] ([facility])[address] [place] [address] Hematocrit (Bld) [Volume fraction] 27.4 % Low 35.0-47.0 [facility] Comment on above: Performed By: #### L [id number] ####Vb Net Programmer: HALLEY HERNANDEZ ([phone])[facility])[address] [place] [address] Hemoglobin (Bld) [Mass/Vol] 8.6 g/dL Low 11.7-16.0 [facility] Comment on above: Performed By: #### L [id number] ####Vb Net Programmer: HALLEY HERNANDEZ ([phone])[facility])[address] [place] [address] Lymphocytes (Bld) [#/Vol] 1.6 10*3/uL Normal 1.0-4.3 [facility] Comment on above: Performed By: #### L [id number] ####Vb Net Programmer: HALLEY HERNANDEZ ([phone])[facility])[address] [place] [address] Lymphocytes/100 WBC (Bld) 20.6 % Normal 20.0-40.0 [facility] Comment on above: Performed By: #### L [id number] ####Vb Net Programmer: HALLEY HERNANDEZ ([phone])[facility])[address] [place] [address] MCH (RBC) [Entitic mass] 22.5 pg Low 26.0-34.0 [facility] Comment on above: Performed By: #### L [id number] ####Vb Net Programmer: HALLEY HERNANDEZ ([phone])[facility])[address] [place] [address] MCV (RBC) [Entitic vol] 72.2 fL Low 80.0-98.0 [facility] Comment on above: Performed By: #### L [id number] ####Vb Net Programmer: HALLEY HERNANDEZ ([phone])[facility])[address] [place] [address] Monocytes (Bld) [#/Vol] 0.9 10*3/uL High 0.0-0.8 [facility] Comment on above: Performed By: #### L [id number] ####Vb Net Programmer: HALLEY HERNANDEZ ([phone])[facility])[address] [place] [address] Monocytes/100 WBC (Bld) 10.9 % High 2.0-10.0 [facility] Comment on above: Performed By: #### L [id number] ####Vb Net Programmer: HALLEY HERNANDEZ ([phone])[facility])[address] [place] [address] Neutrophils (Bld) [#/Vol] 5.0 10*3/uL Normal 1.8-7.0 [facility] Comment on above: Performed By: #### L [id number] ####Vb Net Programmer: HALLEY HERNANDEZ ([phone])[facility])[address] [place] [address] Neutrophils/100 WBC (Bld) 63.6 % Normal 40.0-80.0 [facility] Comment on above: Performed By: #### L [id number] ####Vb Net Programmer: HALLEY HERNANDEZ ([phone])[facility])[address] [place] [address] NRBC (PER 100 WBCS) BY AUTOMATED COUNT 0.0 /100 WBCs Normal 0.0-2.0 [facility] Comment on above: Performed By: #### L [id number] ####Vb Net Programmer: HALLEY HERNANDEZ ([phone])[facility] ([facility])[address] [place] [address] Platelet mean volume (Bld) [Entitic vol] 8.5 fL Normal 7.4-12.4 [facility] Comment on above: Performed By: #### L [id number] ####Vb Net Programmer: HALLEY HERNANDEZ ([phone])[facility] ([facility])[address] [place] [address] Platelets (Bld) [#/Vol] 61 10*3/uL Low 140-440 [facility] Comment on above: Result Comment: I-Th rombocytopenia Performed By: #### L [id number] ####Vb Net Programmer: HALLEY HERNANDEZ ([phone])[facility] ([facility])[address] [place] [address] RBC (Bld) [#/Vol] 3.80 10*6/uL Normal 3.8-5.20 [facility] Comment on above: Performed By: #### L [id number] ####Vb Net Programmer: HALLEY HERNANDEZ ([phone])[facility] ([facility])[address] [place] [address] WBC (Bld) [#/Vol] 7.9 10*3/uL Normal 3.6-10.7 [facility] Comment on above: Performed By: #### L [id number] ####Vb Net Programmer: HALLEY HERNANDEZ ([phone])[facility])[address] [place] [address] COMPREHENSIVE METABOLIC PANE [place] 09-11-2023 Albumin [Mass/Vol] 3.3 g/dL Low 3.5-5.0 [facility] Comment on above: Performed By: #### Mustapha LITTLE, LAB17 ####Vb Net Programmer: HALLEY HERNANDEZ ([phone])[facility] ([facility])[address] [place] [address] ALP [Catalytic activity/Vol] 107 U/L Normal 38-126 [facility] Comment on above: Performed By: #### Mustapha LITTLE, LAB17 ####Vb Net Programmer: HALLEY HERNANDEZ ([phone])[facility] ([facility])[address] [place] [address] ALT [Catalytic activity/Vol] 52 U/L High 0-34 [facility] Comment on above: Performed By: #### Mustapha LITTLE, LAB17 ####Vb Net Programmer: HALLEY HERNANDEZ ([phone])[facility] ([facility])[address] [place] [address] Anion gap [Moles/Vol] 9 mmol/L Normal 3-13 [facility] Comment on above: Performed By: #### Mustapha LITTLE, LAB17 ####Vb Net Programmer: HALLEY HERNANDEZ ([phone])[facility] ([facility])[address] [place] [address] AST [Catalytic activity/Vol] 98 U/L High 15-46 [facility] Comment on above: Performed By: #### Mustapha LITTLE, LAB17 ####Vb Net Programmer: HALLEY HERNANDEZ ([phone])[facility] ([facility])[address] [place] [address] Bilirubin [Mass/Vol] 2.3 mg/dL High 0.2-1.3 [facility] Comment on above: Performed By: #### Mustapha LITTLE, LAB17 ####Vb Net Programmer: HALLEY HERNANDEZ ([phone])[facility])[address] [place] [address] Calcium [Mass/Vol] 8.5 mg/dL Normal 8.4-10.4 [facility] Comment on above: Performed By: #### L SIDNEY, LAB17 ####Vb Net Programmer: HALLEY HERNANDEZ ([phone])[facility])[address] [place] [address] Chloride [Moles/Vol] 111 mmol/L High 98-107 [facility] Comment on above: Performed By: #### Mustapha LITTLE, LAB17 ####Vb Net Programmer: HALLEY HERNANDEZ ([phone])[facility])[address] [place] [address] CO2 [Moles/Vol] 17 mmol/L Low 22-30 [facility] Comment on above: Performed By: #### Mustapha LITTLE, LAB17 ####Vb Net Programmer: HALLEY HERNANDEZ ([phone])[facility])[address] [place] [address] Creatinine [Mass/Vol] 0.73 mg/dL Normal 0.52-1.04 [facility] Comment on above: Performed By: #### Mustapha LITTLE, LAB17 ####Vb Net Programmer: HALLEY HERNANDEZ ([phone])[facility])[address] [place] [address] GLOMERULAR FILTRATION RATE ML/MIN/1.73 SQ M.PREDICTED >90.0 Normal >60.0 [facility] Comment on above: Result Comment: Calc ulation based on the Chronic Kidney Disease Epidemiology Collaboration (CKD-EPI) equation refit without adjustment for race Performed By: #### Mustapha LITTLE, LAB17 ####Vb Net Programmer: HALLEY HERNANDEZ ([phone])[facility] ([facility])[address] [place] [address] Glucose [Mass/Vol] 76 mg/dL Normal 70-100 [facility] Comment on above: Performed By: #### Mustapha LITTLE, LAB17 ####Vb Net Programmer: HALLEY HERNANDEZ ([phone])[facility])[address] [place] [address] Potassium [Moles/Vol] 3.4 mmol/L Low 3.5-5.1 [facility] Comment on above: Performed By: #### L SIDNEY, LAB17 ####Vb Net Programmer: HALLEY HERNANDEZ ([phone])[facility] ([facility])[address] [place] [address] Protein [Mass/Vol] 6.8 g/dL Normal 6.3-8.2 [facility] Comment on above: Performed By: #### Mustapha LANDRY52, LAB17 ####Vb Net Programmer: HALLEY HERNANDEZ ([phone])[facility] ([facility])[address] [place] [address] Sodium [Moles/Vol] 137 mmol/L Normal 135-145 [facility] Comment on above: Performed By: #### Mustapha LITTLE, LAB17 ####Vb Net Programmer: HALLEY HERNANDEZ ([phone])[facility] ([facility])[address] [place] [address] Urea nitrogen [Mass/Vol] 8 mg/dL Normal 7-17 [facility] Comment on above: Performed By: #### Mustapha LITTLE, LAB17 ####Vb Net Programmer: HALLEY HERNANDEZ ([phone])[facility] ([facility])[address] [place] [address] Comprehensive metabolic 1998 panelon 09-11-2023 Albumin [Mass/Vol] 3.3 g/dL Low 3.5 - 5.0 g/dL [facility] ALP [Catalytic activity/Vol] 107 U/L 38 - 126 U/L [facility] ALT [Catalytic activity/Vol] 52 U/L High 0 - 34 U/L [facility] Anion gap [Moles/Vol] 9 mmol/L 3 - 13 mmol/L [facility] AST [Catalytic activity/Vol] 98 U/L High 15 - 46 U/L [facility] Bilirubin [Mass/Vol] 2.3 mg/dL High 0.2 - 1 .3 mg/dL [facility] Calcium [Mass/Vol] 8.5 mg/dL 8.4 - 10. 4 mg/dL [facility] Chloride [Moles/Vol] 111 mmol/L High 98 - 10 7 mmol/L [facility] CO2 [Moles/Vol] 17 mmol/L Low 22 - 30 mmol/L [facility] Creatinine [Mass/Vol] 0.73 mg/dL 0.52 - 1.04 mg/dL [facility] GFR/1.73 sq M.predicted MDRD (S/P/Bld) [Vol rate/Area] - PINF [facility] Comment on above: Calculation based on the Chronic Kidney Disease Epidemiology Collaboration (CKD-EPI) equation refit without adjustment for race Glucose [Mass/Vol] 76 mg/dL 70 - 100 mg/dL [facility] Interpretation and review of laboratory results Abnormal [facility] Potassium [Moles/Vol] 3.4 mmol/L Low 3.5 - 5.1 mmol/L [facility] Protein [Mass/Vol] 6.8 g/dL 6.3 - 8.2 g/dL [facility] Sodium [Moles/Vol] 137 mmol/L 135 - 145 mmol/L [facility] Urea nitrogen [Mass/Vol] 8 mg/dL 7 - 17 mg/dL [facility] Laboratory - Chemistry and C hemistry - challengeon 09-11-2023 Ammonia (P) [Moles/Vol] 65 umol/L High 9 - 30 umol/L [facility] Laboratory - Drug toxicology Ordered By: Lorraine Hernandez on 09-11-2023 Amphetamines Screen method >1000 ng/mL Ql (U) Negative [facility] Barbiturates Screen method >200 ng/mL Ql (U) Negative [facility] Benzodiazepines Ql (U) Negative [facility] Methadone Screen Ql (U) Negative [facility] Opiates Screen Ql (U) Negative [facility] oxyCODONE Ql (U) Negative [facility] Phencyclidine Ql (U) Negative [facility] No Panel InformationOrdered By: Lorraine Hernandez on 09-11-2023 COCAINE METAB. SCREEN Negative [facility] The expected value f or all [...] is needed, request confirmation under separate order. [facility] No Panel Informationon 09-11 [facility] Interpretation and review of laboratory results Abnormal [facility] Nursing Noteon 09-11-2023 Nursing Note Pt was found wanderi ng the hospital by security, confused. Pt brought back by security and she said she was going outside to smoke. She was very upset that she could not have a smoke. Pt threatened to punch someone in the face. Pt is confused. Normal [facility] Progress Noteon 09-11-2023 Progress Note Nutrition rescreen completed. Patient is NPO/Clear liquid >3 days with cirrhosis. Refer to Dietitian. Marielos Stewart, DUTCH Normal [facility] AMMONIAon 09-10-2023 Ammonia (P) [Moles/Vol] 78 umol/L High 9-30 [facility] Comment on above: Performed By: #### L [id number] ####Vb Net Programmer: HALLEY HERNANDEZ ([phone])[facility] ([address] CBC (HEMOGRAM)on 09-10-2023 Erythrocyte distribution width (RBC) [Ratio] 21.4 % High 11.5-14.5 [facility] Comment on above: Result Comment: I-An isocytosis Performed By: #### L [id number] #### Vb Net Programmer: JAVID LUTHER ([phone]) [facility] ([facility]) [address] [place] [address] ERYTHROCYTE MEAN CORPUSCULAR HEMOGLOBIN CONCENTRATION (G/DL) BY AUTOMATED 31.7 % Low 32.0-36.0 [facility] Comment on above: Performed By: #### L [id number] #### Vb Net Programmer: JAVID LUTHER ([phone]) [facility] ([facility]) [address] [place] [address] Hematocrit (Bld) [Volume fraction] 28.8 % Low 35.0-47.0 [facility] Comment on above: Performed By: #### L [id number] #### Vb Net Programmer: AJVID LUTHER ([phone]) [facility] ([facility]) [address] Hemoglobin (Bld) [Mass/Vol] 9.1 g/dL Low 11.7-16.0 [facility] Comment on above: Performed By: #### L [id number] #### Vb Net Programmer: JAVID LUTHER ([phone]) [facility] ([facility]) [address] MCH (RBC) [Entitic mass] 22.5 pg Low 26.0-34.0 [facility] Comment on above: Performed By: #### L [id number] #### Vb Net Programmer: JAVID LUTHER ([phone]) [facility] ([facility]) [address] MCV (RBC) [Entitic vol] 71.2 fL Low 80.0-98.0 [facility] Comment on above: Performed By: #### L [id number] #### Vb Net Programmer: JAVID LUTHER ([id number]) [facility] ([facility]) [address] Platelet mean volume (Bld) [Entitic vol] 8.9 fL Normal 7.4-12.4 [facility] Comment on above: Performed By: #### L [id number] #### Vb Net Programmer: JAVID LUTHER ([id number]) [facility] ([facility]) [address] Platelets (Bld) [#/Vol] 79 10*3/uL Low 140-440 [facility] Comment on above: Performed By: #### L [id number] #### Vb Net Programmer: JAVID LUTHER ([id number]) [facility] ([facility]) [address] [place] [address] [place] RBC (Bld) [#/Vol] 4.05 10*6/uL Normal 3.8-5.20 [facility] Comment on above: Performed By: #### L [id number] #### Vb Net Programmer: JAVID LUTHER ([phone]) [facility] ([facility]) [address] WBC (Bld) [#/Vol] 8.2 10*3/uL Normal 3.6-10.7 [facility] Comment on above: Performed By: #### L [id number] #### Vb Net Programmer: JAVID LUTHER ([id number]) [facility] ([facility]) [address] CBC panel Auto (Bld)Ordered By: Oscar Wilkins on 09-10-2023 Erythrocyte distribution width (RBC) [Ratio] 21.4 % High 11.5 - 14.5 % [facility] Comment on above: I-Anisocytosis Hematocrit (Bld) [Volume fraction] 28.8 % Low 35.0 - 47.0 % [facility] Hemoglobin (Bld) [Mass/Vol] 9.1 g/dL Low 11.7 - 16.0 g/dL [facility] Interpretation and review of laboratory results Abnormal [facility] MCH (RBC) [Entitic mass] 22.5 pg Low 26.0 - 34.0 pg [facility] MCHC (RBC) [Mass/Vol] 31.7 % Low 32.0 - 36.0 % [facility] MCV (RBC) [Entitic vol] 71.2 fL Low 80.0 - 98.0 fL [facility] Platelet mean volume (Bld) [Entitic vol] 8.9 fL 7.4 - 12.4 fL [facility] Platelets (Bld) [#/Vol] 79 10*3/uL Low 140 - 440 10*3/uL [facility] RBC (Bld) [#/Vol] 4.05 10*6/uL 3.8 - 5.20 10*6/uL [facility] WBC (Bld) [#/Vol] 8.2 10*3/uL 3.6 - 10.7 10*3/uL [facility] COMPREHENSIVE METABOLIC PANE [place] 09-10-2023 Albumin [Mass/Vol] 2.8 g/dL Low 3.5-5.0 [facility] Comment on above: Performed By: #### L [id number], [id number], LAB17 ####Vb Net Programmer: HALLEY HERNANDEZ ([phone])[facility] ([facility] [place] [address] [place] ALP [Catalytic activity/Vol] 146 U/L High 38-126 [facility] Comment on above: Performed By: #### L AB103, [id number], LAB17 ####Vb Net Programmer: HALLEY HERNANDEZ ([id number])[facility] ([facility])[address] [place] [address] [place] ALT [Catalytic activity/Vol] 54 U/L High 0-34 [facility] Comment on above: Performed By: #### L AB103, [id number], LAB17 ####Vb Net Programmer: HALLEY HERNANDEZ ([phone])[facility] ([facility])[address] [place] [address] Anion gap [Moles/Vol] 4 mmol/L Normal 3-13 [facility] Comment on above: Performed By: #### Mustapha [facility]ER, [id number], LAB17 ####Vb Net Programmer: HALLEY HERNANDEZ ([id number])[facility] ([facility])[address] [place] [address] AST [Catalytic activity/Vol] 103 U/L High 15-46 [facility] Comment on above: Performed By: #### Mustapha [id number], [id number], LAB17 ####Vb Net Programmer: HALLEY HERNANDEZ ([id number])[facility] ([facility])[address] [place] [address] Bilirubin [Mass/Vol] 2.5 mg/dL High 0.2-1.3 [facility] Comment on above: Performed By: #### L AB103, [id number], LAB17 ####Vb Net Programmer: HALLEY HERNANDEZ ([phone])[facility] ([facility])[address] [place] [address] Calcium [Mass/Vol] 8.6 mg/dL Normal 8.4-10.4 [facility] Comment on above: Performed By: #### L AB103, [id number], LAB17 ####Vb Net Programmer: HALLEY HERNANDEZ ([phone])[facility] ([facility])[address] [place] [address] [place] Chloride [Moles/Vol] 113 mmol/L High 98-107 [facility] Comment on above: Performed By: #### L AB103, [id number], LAB17 ####Vb Net Programmer: HALLEY HERNANDEZ ([phone])[facility])[address] [place] [address] CO2 [Moles/Vol] 21 mmol/L Low 22-30 [facility] Comment on above: Performed By: #### Mustapha AB103, [id number], LAB17 ####Vb Net Programmer: HALLEY HERNANDEZ ([phone])[facility])[address] [place] [address] Creatinine [Mass/Vol] 0.81 mg/dL Normal 0.52-1.04 [facility] Comment on above: Performed By: #### Mustapha AB103, [id number], LAB17 ####Vb Net Programmer: HALLEY HERNANDEZ ([phone])[facility])[address] [place] [address] GLOMERULAR FILTRATION RATE ML/MIN/1.73 SQ M.PREDICTED 89.1 mL/min/1.73m*2 Normal >60.0 [facility] Comment on above: Result Comment: Calc ulation based on the Chronic Kidney Disease Epidemiology Collaboration (CKD-EPI) equation refit without adjustment for race Performed By: #### L AB103, [id number], LAB17 ####Vb Net Programmer: HALLEY HERNANDEZ ([phone])[facility] ([facility])[address] [place] [address] Glucose [Mass/Vol] 90 mg/dL Normal 70-100 [facility] Comment on above: Performed By: #### L AB103, [id number], LAB17 ####Vb Net Programmer: HALLEY HERNANDEZ ([phone])[facility])[address] [place] [address] Potassium [Moles/Vol] 4.0 mmol/L Normal 3.5-5.1 [facility] Comment on above: Performed By: #### L AB103, [id number], LAB17 ####Vb Net Programmer: HALLEY [phone])[facility] ([facility])[address] [place] [address] Protein [Mass/Vol] 6.4 g/dL Normal 6.3-8.2 [facility] Comment on above: Performed By: #### L AB103, [id number], LAB17 ####Vb Net Programmer: HALLEY HERNANDEZ ([phone])[facility])[address] [place] [address] Sodium [Moles/Vol] 138 mmol/L Normal 135-145 [facility] Comment on above: Performed By: #### L AB103, [id number], LAB17 ####Vb Net Programmer: HALLEY HERNANDEZ ([phone])[facility] ([facility])[address] [place] [address] Urea nitrogen [Mass/Vol] 7 mg/dL Normal 7-17 [facility] Comment on above: Performed By: #### L AB103, [id number], LAB17 ####Vb Net Programmer: HALLEY HERNANDEZ ([phone])[facility])[address] [place] [address] Comprehensive metabolic 1998 panelon 09-10-2023 Albumin [Mass/Vol] 2.8 g/dL Low 3.5 - 5.0 g/dL [facility] ALP [Catalytic activity/Vol] 146 U/L High 38 - 126 U/L [facility] ALT [Catalytic activity/Vol] 54 U/L High 0 - 34 U/L [facility] Anion gap [Moles/Vol] 4 mmol/L 3 - 13 mmol/L [facility] AST [Catalytic activity/Vol] 103 U/L High 15 - 46 U/L [facility] Bilirubin [Mass/Vol] 2.5 mg/dL High 0.2 - 1 .3 mg/dL [facility] Calcium [Mass/Vol] 8.6 mg/dL 8.4 - 10. 4 mg/dL [facility] Chloride [Moles/Vol] 113 mmol/L High 98 - 10 7 mmol/L [facility] CO2 [Moles/Vol] 21 mmol/L Low 22 - 30 mmol/L [facility] Creatinine [Mass/Vol] 0.81 mg/dL 0.52 - 1.04 mg/dL [facility] GFR/1.73 sq M.predicted MDRD (S/P/Bld) [Vol rate/Area] 89.1 mL/min/{1.73_m2} - PINF [facility] Comment on above: Calculation based on the Chronic Kidney Disease Epidemiology Collaboration (CKD-EPI) equation refit without adjustment for race Glucose [Mass/Vol] 90 mg/dL 70 - 100 mg/dL [facility] Interpretation and review of laboratory results Abnormal [facility] Potassium [Moles/Vol] 4.0 mmol/L 3.5 - 5.1 mmol/L [facility] Protein [Mass/Vol] 6.4 g/dL 6.3 - 8.2 g/dL [facility] Sodium [Moles/Vol] 138 mmol/L 135 - 145 mmol/L [facility] Urea nitrogen [Mass/Vol] 7 mg/dL 7 - 17 mg/dL [facility] ED Nursing Noteon 09-10-2023 ED Nursing Note Report given to 7W ambreen cao this time. Transport en route. Laura Antony RN 09/10/23 0501 ED Nursing Note They are here now to transport the patient to [facility] 09/10/23 0447 ED Nursing Note [facility] ET A 0430 RN will call report in a few :) [facility] 09/10/23 0432 Guidance for paracentesis of Peritoneumon 09-10-2023 Trace ascites, not amenable to ultrasound-guided paracentesis. Paracentesis not performed. Report Dictated on Electronically Signed By: Lynn Edwards MD Electronically Signed Date/Time: 09/10/2023 8:54 AM [facility] [employer] [facility] Name[facility]IGHTOWER [facility] 1975 [place] [id number] Exam Date/Time: 09/10/2023 08:29 Procedure: US GUIDED [...] of fluid amenable to ultrasound guided paracentesis. [facility] Lynn Edwards MD - 09/10/2023 Patient Name: CAROLINA HIGHTOWER : 1975 [place] [id number] Exam Date/Time: 09/10/2023 08:29 Procedure: US GUIDED [...] Electronically Signed Date/Time: 09/10/2023 8:54 AM EST [facility] Radiology Study observation (narrative) [facility] Guidance for paracentesis of PeritoneumOrdered By: Lynn Edwards on 09-10-2023 [facility] Work Phone: IRON AND TIBCon 09-10-2023 IRON BINDING CAPACITY 376 ug/dL Normal 261-497 [facility] Comment on above: Performed By: #### L AB103, [id number], LAB17 ####Vb Net Programmer: HALLEY HERNANDEZ ([phone])[facility] ([facility])[address] [place] [address] IRON SATURATION 13 % Low 15-50 [facility] Comment on above: Performed By: #### L AB103, [id number], LAB17 ####Vb Net Programmer: HALLEY HERNANDEZ ([phone])[facility] ([facility])[address] [place] [address] IRON, TOTAL 48 ug/dL Normal 37-170 [facility] Comment on above: Performed By: #### L AB103, [id number], LAB17 ####Vb Net Programmer: HALLEY HERNANDEZ ([phone])[facility])[address] [place] [address] Iron and Iron binding capaci ty panelon 09-10-2023 Interpretation and review of laboratory results Abnormal [facility] Iron [Mass/Vol] 48 ug/dL 37 - 170 ug/dL [facility] Iron binding capacity [Mass/Vol] 376 ug/dL 261 - 497 ug/dL [facility] Iron saturation [Mass fraction] 13 % Low 15 - 50 % [facility] Laboratory - Chemistry and C hemistry - challengeon 09-10-2023 Magnesium [Mass/Vol] 1.7 mg/dL 1.6 - 2 .3 mg/dL [facility] Ammonia (P) [Moles/Vol] 78 umol/L High 9 - 30 umol/L [facility] Troponin I.cardiac [Mass/Vol] ng/mL NINF - 0.034 ng/mL [facility] Laboratory - Coagulationon 1 11-11-2022 aPTT Coag (PPP) [Time] 40.2 s High 20.0 - 30.5 s [facility] INR Coag (PPP) [Relative time] 1.7 {INR} High 0.9 - 1.1 [facility] Comment on above: Recommended Anticoag ulant Therapy: [...] 17.0 s High 9.0 - 12.0 s [facility] MAGNESIUMon 09-10-2023 Magnesium [Mass/Vol] 1.7 mg/dL Normal 1.6-2.3 [facility] Comment on above: Performed By: #### L JOB, [id number], LAB17 ####Vb Net Programmer: HALLEY HERNANDEZ ([phone])[facility] ([facility] Magnesium [Mass/Vol]on 09-10 Interpretation and review of laboratory results Normal [facility] No Panel Informationon 09-10 Interpretation and review of laboratory results Abnormal [facility] Interpretation and review of laboratory results Abnormal [facility] PROTIME AND APTTon aPTT Coag (Bld) [Time] 40.2 s High 20.0-30.5 [facility] Comment on above: Performed By: #### L [id number] ####Vb Net Programmer: HALLEY HERNANDEZ ([phone])[facility] ([facility])[address] [place] [address] INR Coag (PPP) [Relative time] 1.7 {INR} High 0.9-1.1 [facility] Comment on above: Result Comment: Giorgio mmended [...] prevent Myocardial Infarction Performed By: #### L [id number] ####Vb Net Programmer: HALLEY HERNANDEZ ([phone])[facility] ([facility])[address] [place] [address] PT Coag (PPP) [Time] 17.0 s High 9.0-12.0 [facility] Comment on above: Performed By: #### L [id number] ####Vb Net Programmer: HALLEY HERNANDEZ ([phone])[facility])[address] [place] [address] Progress Noteon 09-10-2023 Progress Note Patient seen, [...] We will continue to follow closely. Normal [facility] TROPONIN Ion 09-10-2023 Troponin I.cardiac [Mass/Vol] ng/mL Normal <0.034 [facility] Comment on above: Result Comment: KIKE Cohen COMMENTS: Patients with high levels of Biotin oral intake (ie >5 mg/day) may have falsely decreased Troponin levels. Performed By: #### L [id number] #### Vb Net Programmer: JAVID LUTHER ([id number]) [facility] ([facility]) [address] [place] [address] Troponin I.cardiac [Mass/Vol] ng/mL Normal <0.034 [facility] Comment on above: Result Comment: KIKE Cohen COMMENTS: Patients with high levels of Biotin oral intake (ie >5 mg/day) may have falsely decreased Troponin levels. Performed By: #### L [id number] ####Vb Net Programmer: JAVID MILLERSHRINERS HOSPITALS FOR CHILDREN ([phone])[facility] ([facility])[address] [place] [address] Troponin I.cardiac [Mass/Vol ]on 09-10-2023 Interpretation and review of laboratory results Normal [facility] Patients with high levels of Biotin oral intake (ie >5 mg/day) may have falsely decreased Troponin levels. [facility] US GUIDED ABDOMINAL PARACENT ESISon [...] Signed Date/Time: 09/10/2023 8:54 AM EST Normal [facility] AMMONIAon 09-09-2023 Ammonia (P) [Moles/Vol] 106 umol/L High 9-30 [facility] Comment on above: Performed By: #### L AB47 ####Vb Net Programmer: JAVID LUTHER ([phone])[facility] ([facility])[address] BASIC METABOLIC PANELon 12- Anion gap [Moles/Vol] 8 mmol/L Normal 3-13 [facility] Comment on above: Performed By: #### L AB15, [id number], LAB20, LAB99 ####Vb Net Programmer: JAVID LUTHER ([phone])[facility] ([facility])[address] Calcium [Mass/Vol] 8.7 mg/dL Normal 8.4-10.4 [facility] Comment on above: Performed By: #### L AB15, [id number], LAB20, LAB99 ####Vb Net Programmer: JAVID LUTHER ([phone])[facility] ([facility])[address] Chloride [Moles/Vol] 109 mmol/L High 98-107 [facility] Comment on above: Performed By: #### L AB15, [id number], LAB20, LAB99 ####Vb Net Programmer: JAVID LUTHER ([phone])[facility] ([facility])[address] [place] [address] [place] CO2 [Moles/Vol] 19 mmol/L Low 22-30 [facility] Comment on above: Performed By: #### L AB15, [id number], LAB20, LAB99 ####Vb Net Programmer: JAVID LUTHER ([id number])[facility] ([facility])[address] [place] [address] [place] Creatinine [Mass/Vol] 0.73 mg/dL Normal 0.52-1.04 [facility] Comment on above: Performed By: #### L AB15, [id number], LAB20, LAB99 ####Vb Net Programmer: JAVID LUTHER ([phone])[facility] CAMPUSA[facility] ([facility])[address] GLOMERULAR FILTRATION RATE ML/MIN/1.73 SQ M.PREDICTED >90.0 Normal >60.0 [facility] Comment on above: Result Comment: Calc ulation based on the Chronic Kidney Disease Epidemiology Collaboration (CKD-EPI) equation refit without adjustment for race ORDER COMMENTS: CHEMISTRY SPECIMEN SLIGHTLY HEMOLYZED; INTERPRET WITH CAUTION! Performed By: #### L AB15, [id number], LAB20, LAB99 ####Vb Net Programmer: JAVID LUTHER ([id number])[facility] ([facility])[address] Glucose [Mass/Vol] 139 mg/dL High 70-100 [facility] Comment on above: Performed By: #### L AB15, [id number], LAB20, LAB99 ####Vb Net Programmer: JAVID LUTHER ([id number])[facility] ([facility])[address] Potassium [Moles/Vol] 4.3 mmol/L Normal 3.5-5.1 [facility] Comment on above: Performed By: #### L AB15, [id number], LAB20, LAB99 ####Vb Net Programmer: JAVID LUTHER ([phone])[facility] ([facility])[address] [place] [address] [place] Sodium [Moles/Vol] 136 mmol/L Normal 135-145 [facility] Comment on above: Performed By: #### L AB15, [id number], LAB20, LAB99 ####Vb Net Programmer: JAVID LUTHER ([phone])[facility] ([facility])[address] [place] [address] [place] Urea nitrogen [Mass/Vol] 7 mg/dL Normal 7-17 [facility] Comment on above: Performed By: #### L AB15, [id number], LAB20, LAB99 ####Vb Net Programmer: JAVID LUTHER ([phone])[facility] ([facility])[address] [place] [address] Basic metabolic 1998 panelon 09-09-2023 Anion gap [Moles/Vol] 8 mmol/L 3 - 13 mmol/L [facility] Calcium [Mass/Vol] 8.7 mg/dL 8.4 - 10. 4 mg/dL [facility] Chloride [Moles/Vol] 109 mmol/L High 98 - 10 7 mmol/L [facility] CO2 [Moles/Vol] 19 mmol/L Low 22 - 30 mmol/L [facility] Creatinine [Mass/Vol] 0.73 mg/dL 0.52 - 1.04 mg/dL [facility] GFR/1.73 sq M.predicted MDRD (S/P/Bld) [Vol rate/Area] - PINF [facility] Comment on above: Calculation based on the Chronic Kidney Disease Epidemiology Collaboration (CKD-EPI) equation refit without adjustment for race Glucose [Mass/Vol] 139 mg/dL High 70 - 100 mg/dL [facility] Potassium [Moles/Vol] 4.3 mmol/L 3.5 - 5.1 mmol/L [facility] Sodium [Moles/Vol] 136 mmol/L 135 - 145 mmol/L [facility] Urea nitrogen [Mass/Vol] 7 mg/dL 7 - 17 mg/dL [facility] CBC W Auto Differential pane l (Bld)Ordered By: Saida York on 09-09-2023 Erythrocyte distribution width (RBC) [Ratio] 21.6 % High 11.5 - 14.5 % [facility] Hematocrit (Bld) [Volume fraction] 32.4 % Low 35.0 - 47.0 % [facility] Hemoglobin (Bld) [Mass/Vol] 10.4 g/dL Low 11.7 - 16.0 g/dL [facility] Interpretation and review of laboratory results Abnormal [facility] MCH (RBC) [Entitic mass] 22.8 pg Low 26.0 - 34.0 pg [facility] MCHC (RBC) [Mass/Vol] 32.0 % 32.0 - 36.0 % [facility] MCV (RBC) [Entitic vol] 71.1 fL Low 80.0 - 98.0 fL [facility] Nucleated RBC/100 WBC (Bld) [Ratio] 0.2 % [facility] Platelet mean volume (Bld) [Entitic vol] 9.2 fL 7.4 - 12.4 fL [facility] Platelets (Bld) [#/Vol] 95 10*3/uL Low 140 - 440 10*3/uL [facility] RBC (Bld) [#/Vol] 4.56 10*6/uL 3.8 - 5.20 10*6/uL [facility] WBC (Bld) [#/Vol] 9.4 10*3/uL 3.6 - 10.7 10*3/uL [facility] CBC WITH AUTO DIFFERENTIALon 09-09-2023 Erythrocyte distribution width (RBC) [Ratio] 21.6 % High 11.5-14.5 [facility] Comment on above: Performed By: #### L [id number], [id number] ####Vb Net Programmer: JAVID LUTHER ([id number])[facility] ([facility] [place] [address] ERYTHROCYTE MEAN CORPUSCULAR HEMOGLOBIN CONCENTRATION (G/DL) BY AUTOMATED 32.0 % Normal 32.0-36.0 [facility] Comment on above: Performed By: #### L [id number], [id number] ####Vb Net Programmer: JAVID LUTHER ([phone])[facility] ([facility])[address] [place] [address] Hematocrit (Bld) [Volume fraction] 32.4 % Low 35.0-47.0 [facility] Comment on above: Performed By: #### L [id number], [id number] ####Vb Net Programmer: JAVID LUTHER ([phone])[facility] ([facility])[address] [place] [address] Hemoglobin (Bld) [Mass/Vol] 10.4 g/dL Low 11.7-16.0 [facility] Comment on above: Performed By: #### L [id number], [id number] ####Vb Net Programmer: JAVID LUTHER ([phone])[facility] ([facility])[address] MCH (RBC) [Entitic mass] 22.8 pg Low 26.0-34.0 [facility] Comment on above: Performed By: #### L [id number], [id number] ####Vb Net Programmer: JAVID LUTHER ([phone])[facility] [place] ([facility])[address] MCV (RBC) [Entitic vol] 71.1 fL Low 80.0-98.0 [facility] Comment on above: Performed By: #### L [id number], [id number] ####Vb Net Programmer: JAVID LUTHER ([phone])[facility] [place] ([facility])[address] [place] [address] NRBC (PER 100 WBCS) BY AUTOMATED COUNT 0.2 /100 WBCs Normal 0.0-2.0 [facility] Comment on above: Performed By: #### L [id number], [id number] ####Vb Net Programmer: JAVID LUTHER ([phone])[facility] [place] ([facility])[address] Platelet mean volume (Bld) [Entitic vol] 9.2 fL Normal 7.4-12.4 [facility] Comment on above: Performed By: #### L [id number], [id number] ####Vb Net Programmer: JAVID LUTHER ([phone])[facility] [place] ([facility])[address] Platelets (Bld) [#/Vol] 95 10*3/uL Low 140-440 [facility] Comment on above: Performed By: #### L [id number], [id number] ####Vb Net Programmer: JAVID LUTHER ([phone])[facility] [place] ([facility])[address] RBC (Bld) [#/Vol] 4.56 10*6/uL Normal 3.8-5.20 [facility] Comment on above: Performed By: #### L [id number], [id number] ####Vb Net Programmer: JAVID LUTHER ([phone])[facility] ([facility])[address] WBC (Bld) [#/Vol] 9.4 10*3/uL Normal 3.6-10.7 [facility] Comment on above: Performed By: #### L [id number], [id number] ####Vb Net Programmer: JAVID LUTHER ([id number])[facility] ([facility])[address] [place] [address] COMPLETE URINALYSISon 2022 BACTERIA (#/HPF) IN URINE Moderate Abnormal Negative [facility] Comment on above: Performed By: #### L [id number] #### Vb Net Programmer: JAVID LUTHER ([id number]) [facility] ([facility]) [address] [place] [address] BILIRUBIN, TOTAL PRESENCE IN URINE Negative Normal Negative [facility] Comment on above: Performed By: #### L [id number] #### Vb Net Programmer: JAVID LUTHER ([phone]) [facility] ([facility]) [address] [place] [address] Clarity (U) Clear Normal Clear [facility] Comment on above: Performed By: #### L [id number] #### Vb Net Programmer: JAVID LUTHER ([phone]) [facility] ([facility]) [address] [place] [address] Color (U) Yellow Normal Lt. Yellow [facility] Comment on above: Performed By: #### L [id number] #### Vb Net Programmer: JAVID LUTHER ([phone]) [facility] ([facility]) [address] [place] [address] GLUCOSE (MG/DL) IN URINE Normal Normal Normal (<70) [facility] Comment on above: Performed By: #### L [id number] #### Vb Net Programmer: JAVID VASQUEZRITA ([phone]) [facility] [place] ([facility]) [address] HEMOGLOBIN PRESENCE IN URINE 0.2 mg/dL Abnormal Negative [facility] Comment on above: Performed By: #### L [id number] #### Vb Net Programmer: JAVID MILLERRONALD ([phone]) [facility] ([facility]) [address] Ketones Ql (U) Negative Normal Negative [facility] Comment on above: Performed By: #### L [id number] #### Vb Net Programmer: JAVID VASQUEZRITA ([id number]) [facility] ([facility]) [address] LEUKOCYTE ESTERASE PRESENCE IN URINE BY TEST STRIP Negative Normal Negative [facility] Comment on above: Performed By: #### L [id number] #### Vb Net Programmer: JAVID VASQUEZRITA ([id number]) [facility] ([facility]) [address] [place] [address] [place] MUCUS (#/LPF) IN URINE SEDIMENT Few Normal Negative [facility] Comment on above: Performed By: #### L [id number] #### Vb Net Programmer: JAVID VASQUEZRITA ([id number]) [facility] ([facility]) [address] NITRITE PRESENCE IN URINE Negative Normal Negative [facility] Comment on above: Performed By: #### L [id number] #### Vb Net Programmer: JAVID VASQUEZRITA ([id number]) [facility] ([facility]) [address] [place] [address] [place] NON-SQUAMOUS EPITHELIAL (#/HPF) IN URINE 0-2 Abnormal Negative [facility] Comment on above: Performed By: #### L [id number] #### Vb Net Programmer: JAVID VASQUEZRITA ([phone]) [facility] ([facility]) [address] [place] [address] [place] pH (U) 6.5 [pH] Normal 5.0-8.0 [facility] Comment on above: Performed By: #### L [id number] #### Vb Net Programmer: JAVID LUTHER ([id number]) [facility] [place] ([facility]) [address] Protein (U) [Mass/Vol] Negative Normal Negative [facility] Comment on above: Performed By: #### L [id number] #### Vb Net Programmer: JAVID LUTHER ([id number]) [facility] ([facility]) [address] [place] [address] [place] RBC (#/HPF) IN URINE SEDIMENT 3-5 Abnormal 0-2 [facility] Comment on above: Performed By: #### L [id number] #### Vb Net Programmer: JAVID LUTHER ([id number]) [facility] ([facility]) [address] [place] [address] Specific gravity (U) [Rel density] 1.010 Normal 1.005-1.030 [facility] Comment on above: Performed By: #### L [id number] #### Vb Net Programmer: JAVID LUTHER ([id number]) [facility] (HLAB) [address] [place] [address] [place] SQUAMOUS EPITHELIAL CELLS (#/HPF) IN URINE SEDIMENT 6-10 Abnormal 3-5 [facility] Comment on above: Performed By: #### L [id number] #### Vb Net Programmer: JAVID LUTHER ([id number]) [facility] ([facility]) [address] [place] [address] [place] UROBILINOGEN (MG/DL) IN URINE Normal Normal Normal (0-1) [facility] Comment on above: Performed By: #### L [id number] #### Vb Net Programmer: JAVID LUTHER ([id number]) [facility] ([facility]) [address] [place] [address] [place] WBC (LEUKOCYTE) (#/HPF) IN URINE SEDIMENT 0-2 Normal 0-5 [facility] Comment on above: Performed By: #### L [id number] #### Vb Net Programmer: JAVID LUTHER ([id number]) [facility] ([facility]) [address] COVID-19, Flu A/B, and RSV C omboon 09-09-2023 Interpretation and review of laboratory results Normal [facility] CT ABDOMEN PELVIS W CONTRAST on 09-09-2023 CT ABDOMEN PELVIS W CONTRAST Patient Name: CAROLINA HIGHTOWER : 1975 [facility]#: [id number] Exam Date/Time: 09/09/2023 20:11 Procedure: CT ABDOMEN [...] EST Abdominal pain, hx of cirrhosis Normal [facility] CT Abdomen and Pelvis W cont rast [...] MD Electronically Signed Date/Time: 09/09/2023 8:28 PM [facility] RADIOLOGY SYSTEM Patient Name: CAROLINA [facility]IGHTOWER : 1975 [id number] Exam Date/Time: 09/09/2023 20:11 Procedure: CT ABDOMEN [...] Unremarkable osseous structures. No suspicious osseous lesion. [facility] RADIOLOGY [facility] Scot Shah MD - 09/09/2023 Patient Name: CAROLINA HIGHTOWER : 1975 [id number] Exam Date/Time: 09/09/2023 20:11 Procedure: CT ABDOMEN [...] Electronically Signed Date/Time: 09/09/2023 8:28 PM EST [facility] Radiology Study observation (narrative) [facility] CT Abdomen and Pelvis W cont rast IVOrdered By: Scot Shah on 09-09-2023 [facility] Work Phone: DRUGS OF ABUSEon 09-09-2023 AMPHETAMINE SCREEN Negative Normal [facility] Comment on above: Performed By: #### L [id number] ####Vb Net Programmer: JAVID LUTHER ([id number])[facility] ([facility])[address] [place] [address] BARBITURATES SCREEN Negative Normal [facility] Comment on above: Performed By: #### L [id number] ####Vb Net Programmer: JAVID LUTHER ([phone])[facility] ([facility])[address] [place] [address] BENZODIAZEPINE SCREEN Negative Normal [facility] Comment on above: Performed By: #### L [id number] ####Vb Net Programmer: JAVID LUTHER ([id number])[facility] ([facility])[address] [place] [address] COCAINE METAB. SCREEN Negative Normal [facility] Comment on above: Performed By: #### L [id number] ####Vb Net Programmer: JAVID LUTHER ([id number])[facility] ([facility])[address] METHADONE SCREEN Negative Normal [facility] Comment on above: Performed By: #### L [id number] ####Vb Net Programmer: JAVID LUTHER ([id number])[facility] ([facility])[address] OPIATES SCREEN Negative Normal [facility] Comment on above: Performed By: #### L [id number] ####Vb Net Programmer: JAVID LUTHER ([id number])[facility] ([facility])[address] OXYCODONE SCREEN Negative Normal [facility] Comment on above: Performed By: #### L [id number] ####Vb Net Programmer: JAVID ASHKAN ([phone])[facility] ([facility])[address] PHENCYCLIDINE SCREEN Negative Normal [facility] Comment on above: Result Comment: KIKE [...] under separate order. Performed By: #### L [id number] ####Vb Net Programmer: JAVID MILLERRONALD ([phone])[facility] ([facility])[address] ECG 12-LEADon 09-09-2023 ECG 12-LEAD IMPRESSION: Sinus rhythm Low voltage, precordial leads Borderline prolonged QT interval Electronically Signed On 09-09-2023 19:59:30 EST by Lenny Macdonald ED Nursing Noteon 09-09-2023 ED Nursing Note Pt c/o abdominal arturo n that began this afternoon, states that she has hx of cirrhosis. Family states she seems off. Normal [facility] ED Provider Noteon 3 ED Provider Note Emergency Department Encounter [facility] ED Patient: Carolina Hightower : 1975 Date of Evaluation: 09/09/2023 ED Supervising Physician: Lenny Macdonald MD I independently examined and evaluated Carolina Hightower. This will serve as my Supervisory note as the tutoring clinician of record and shared attestation. I [...] inpatient medicine team they recommend transfer to [facility] as they do not have IRP [...] [employer] Lenny Macdonald MD 09/12/23 1500 ED Provider Note EMERGENCY DEPARTMENT ENCOUNTER Pt [...] Abnormal BILI (more content not included)... Normal [facility] HCG QUALITATIVE URINEon 08-26 Beta HCG ( test) Ql (U) Negative Normal Negative [facility] Comment on above: Result Comment: Plea se note: Very dilute urine specimens, as indicated by a low specific gravity, may not contain footwear sales representative levels of hCG. If is still suspected, a first morning urine specimen should be collected 48 hours later and tested. ORDER COMMENTS: is the most common reason for HCG in urine, although choriocarcinoma, hydatidiform mole, and certain nontrophoblastic malignancies also result in detectable urinary HCG levels. Sensitivity = 20mIU/mL. Performed By: #### L [id number] #### Vb Net Programmer: JAVID LUTHER ([phone]) [facility] ([facility]) [address] HEPATIC FUNCTION PANELon Albumin [Mass/Vol] 3.2 g/dL Low 3.5-5.0 [facility] Comment on above: Performed By: #### L AB15, [id number], LAB20, LAB99 ####Vb Net Programmer: JAVID LUTHER ([phone])[facility] ([facility])[address] ALP [Catalytic activity/Vol] 149 U/L High 38-126 [facility] Comment on above: Performed By: #### L AB15, [id number], LAB20, LAB99 ####Vb Net Programmer: JAVID LUTHER ([id number])[facility] ([facility])[address] ALT [Catalytic activity/Vol] 59 U/L High 0-34 [facility] Comment on above: Performed By: #### L AB15, [id number], LAB20, LAB99 ####Vb Net Programmer: JAVID LUTHER ([phone])[facility] ([facility])[address] AST [Catalytic activity/Vol] 124 U/L High 15-46 [facility] Comment on above: Performed By: #### L AB15, [id number], LAB20, LAB99 ####Vb Net Programmer: JAVID LUTHER ([id number])[facility] ([facility])[address] Bilirubin [Mass/Vol] 2.7 mg/dL High 0.2-1.3 [facility] Comment on above: Performed By: #### L AB15, [id number], LAB20, LAB99 ####Vb Net Programmer: JAVID LUTHER ([id number])[facility] ([facility])[address] Bilirubin.indirect [Mass/Vol] 0.0 mg/dL Normal 0.0-0.3 [facility] Comment on above: Performed By: #### L AB15, [id number], LAB20, LAB99 ####Vb Net Programmer: JAVID LUTHER ([phone])[facility] ([facility])[address] [place] [address] Protein [Mass/Vol] 7.2 g/dL Normal 6.3-8.2 [facility] Comment on above: Result Comment: KIKE Cohen COMMENTS: CHEMISTRY SPECIMEN SLIGHTLY HEMOLYZED; INTERPRET WITH CAUTION! Performed By: #### L AB15, [id number], LAB20, LAB99 ####Vb Net Programmer: JAVID LUTHER ([phone])[facility] ([facility])[address] [place] [address] Hepatic function 2000 panelo n 09-09-2023 Albumin [Mass/Vol] 3.2 g/dL Low 3.5 - 5.0 g/dL [facility] ALP [Catalytic activity/Vol] 149 U/L High 38 - 126 U/L [facility] ALT [Catalytic activity/Vol] 59 U/L High 0 - 34 U/L [facility] AST [Catalytic activity/Vol] 124 U/L High 15 - 46 U/L [facility] Bilirubin [Mass/Vol] 2.7 mg/dL High 0.2 - 1 .3 mg/dL [facility] Bilirubin.conjugated [Mass/Vol] 0.0 mg/dL 0.0 - 0.3 mg/dL [facility] Protein [Mass/Vol] 7.2 g/dL 6.3 - 8.2 g/dL [facility] LIPASEon 09-09-2023 Lipase [Catalytic activity/Vol] 188 U/L Normal 23-300 [facility] Comment on above: Performed By: #### L AB15, [id number], LAB20, LAB99 ####Vb Net Programmer: JAVID LUTHER ([phone])[facility] ([facility])[address] [place] [address] Laboratory - Chemistry and C hemistry - challengeon 09-09-2023 Troponin I.cardiac [Mass/Vol] ng/mL NINF - 0.034 ng/mL [facility] Beta HCG ( test) Ql Negative Negative [facility] Comment on above: Please note: Very di lute urine specimens, as indicated by a low specific gravity, may not contain footwear sales representative levels of hCG. If is still suspected, a first morning urine specimen should be collected 48 hours later and tested. Beta HCG ( test) Ql (U) is the most common reason for HCG in urine, although choriocarcinoma, hydatidiform mole, and certain nontrophoblastic malignancies also result in detectable urinary HCG levels. Sensitivity = 20mIU/mL. [facility] Troponin I.cardiac [Mass/Vol] ng/mL NINF - 0.034 ng/mL [facility] Lipase [Catalytic activity/Vol] 188 U/L 23 - 300 U/L [facility] Ammonia (P) [Moles/Vol] 106 umol/L High 9 - 30 umol/L [facility] Laboratory - Microbiology an d Antimicrobial susceptibilityon 09-09-2023 FLUAV RNA PHYLLIS+probe Ql (Resp) Not detected Not Detected [facility] FLUBV RNA PHYLLIS+probe Ql (Resp) Not detected Not Detected [facility] RSV RNA PHYLLIS+probe Ql (Resp) Not detected Not Detected [facility] SARS-CoV-2 (COVID-19) RNA PHYLLIS+probe Ql (Resp) Not detected Not Detected [facility] SARS-CoV-2 (COVID-19) RNA PHYLLIS+probe Ql (Unsp spec) Methodology: real-time, RT-PCR The SARS-CoV-2, Flu A/B, and RSV Combo assay is intended for in vitro diagnostic use under the FDA Emergency Use Authorization (EUA). This test has not been FDA cleared or approved. In compliance with this authorization, please visit www.fda.gov/media/51591 5/download or www.fda.gov/media/51967 6/download to access the applicable information sheets. [facility] Lipase [Catalytic activity/V ol]on 09-09-2023 Interpretation and review of laboratory results Normal [facility] MANUAL DIFFERENTIALon 2022 ANISOCYTOSIS PRESENCE IN BLOOD BY LIGHT MICROSCOPY Moderate Abnormal (none) [facility] Comment on above: Performed By: #### L [id number], [id number] ####Vb Net Programmer: JAVID LUTHER ([phone])[facility] [place] ([facility])[address] [place] [address] [place] BASOPHILS (10*3/UL) IN BLOOD BY MANUAL COUNT 0.1 10*3/uL Normal 0.0-0.2 [facility] Comment on above: Performed By: #### L [id number], [id number] ####Vb Net Programmer: JAVID LUTHER ([phone])[facility]AMPUSA [facility] ([facility])[address] BASOPHILS TOTAL PER COUNTED LEUKOCYTES BY MANUAL COUNT 1 Normal [facility] Comment on above: Performed By: #### L [id number], [id number] ####Vb Net Programmer: JAVID LUTHER ([phone])[facility] [place] ([facility])[address] [place] [address] [place] BASOPHILS/100 LEUKOCYTES IN BLOOD BY MANUAL COUNT 1 % Normal 0-2 [facility] Comment on above: Performed By: #### L FW5863, [id number] ####Vb Net Programmer: JAVID LUTHER ([id number])[facility] ([facility])[address] CELLS COUNTED TOTAL (#) IN BLOOD 100 Normal [facility] Comment on above: Performed By: #### L [id number], [id number] ####Vb Net Programmer: JAVID LUTHER ([phone])[facility] [place] ([facility])[address] DIFFERENTIAL METHOD Automated differenti al reported after manual slide review Normal [facility] Comment on above: Performed By: #### L [id number], [id number] ####Vb Net Programmer: JAVID [phone])[facility] ([facility])[address] [place] [address] [place] EOSINOPHILS (10*3/UL) IN BLOOD BY MANUAL COUNT 0.4 10*3/uL Normal 0.0-0.5 [facility] Comment on above: Performed By: #### L QM9433, [id number] ####Vb Net Programmer: JAVID LUTHER ([phone])[facility] ([facility])[address] EOSINOPHILS TOTAL PER COUNTED LEUKOCYTES BY MANUAL COUNT 4 High 0-1 [facility] Comment on above: Performed By: #### L [id number], [id number] ####Vb Net Programmer: JAVID LUTHER ([id number])[facility] ([facility])[address] EOSINOPHILS/100 LEUKOCYTES IN BLOOD BY MANUAL COUNT 4 % Normal 1-6 [facility] Comment on above: Performed By: #### L [id number], [id number] ####Vb Net Programmer: JAVID LUTHER ([id number])[facility] [place] ([facility])[address] HYPOCHROMIA (PRESENCE) IN BLOOD BY LIGHT MICROSCOPY Slight Abnormal (none) [facility] Comment on above: Performed By: #### L [id number], IGT3727 ####Vb Net Programmer: JAVID LUTHER ([id number])[facility] ([facility])[address] LEUKOCYTE MORPHOLOGY FINDING IN BLOOD Normal Normal [facility] Comment on above: Performed By: #### L DE5738, [id number] ####Vb Net Programmer: JAVID LUTHER ([id number])[facility] ([facility])[address] [place] [address] [place] LEUKOCYTES (10*3/UL) NUCLEATED ERYTHROCYTE ADJUST 9.4 10*3/uL Normal 3.6-10.7 [facility] Comment on above: Performed By: #### L [id number], [id number] ####Vb Net Programmer: JAVID MILLER-RITA ([id number])[facility] [place] ([facility])[address] [place] [address] [place] LYMPHOCYTES (10*3/UL) IN BLOOD BY MANUAL COUNT 2.0 10*3/uL Normal 1.0-4.3 [facility] Comment on above: Performed By: #### L [id number], [id number] ####Vb Net Programmer: JAVID ASHKAN ([phone])[facility] [place] ([facility])[address] LYMPHOCYTES TOTAL PER COUNTED LEUKOCYTES BY MANUAL COUNT 21 Normal [facility] Comment on above: Performed By: #### L [id number], [id number] ####Vb Net Programmer: JAVID ASHKAN ([id number])[facility] [place] ([facility])[address] LYMPHOCYTES/100 LEUKOCYTES IN BLOOD BY MANUAL COUNT 21 % Normal 20-40 [facility] Comment on above: Performed By: #### L [id number], OHI8654 ####Vb Net Programmer: JAVID ASHKAN ([phone])[facility] [place] ([facility])[address] [place] [address] [place] MICROCYTES (PRESENCE) IN BLOOD BY LIGHT MICROSCOPY Slight Abnormal (none) [facility] Comment on above: Performed By: #### L [id number], [id number] ####Vb Net Programmer: JAVID MILLERRONALD ([phone])[facility] [place] ([facility])[address] [place] [address] [place] MONOCYTES (10*3/UL) IN BLOOD BY MANUAL COUNT 0.7 10*3/uL Normal 0.0-0.8 [facility] Comment on above: Performed By: #### L [id number], [id number] ####Vb Net Programmer: JAVID MILLERRONALD ([id number])[facility] [place] ([facility])[address] [place] [address] [place] MONOCYTES TOTAL PER COUNTED LEUKOCYTES BY MANUAL COUNT 7 Normal [facility] Comment on above: Performed By: #### L SG2979, [id number] ####Vb Net Programmer: JAVID LUTHER ([phone])[facility] [place] ([facility])[address] [place] [address] [place] MONOCYTES/100 LEUKOCYTES IN BLOOD BY MANUAL COUNT 7 % Normal 2-10 [facility] Comment on above: Performed By: #### L [id number], [id number] ####Vb Net Programmer: JAVID LUTHER ([id number])[facility] [place] ([facility] [place] [address] [place] NEUTROPHILS (SEGS+BANDS) (10*3/UL) BY MANUAL COUNT 6.3 10*3/uL Normal 1.8-7.0 [facility] Comment on above: Performed By: #### L [id number], [id number] ####Vb Net Programmer: JAVID LUTHER ([id number])[facility] [facility] [facility] [place] NEUTROPHILS TOTAL PER COUNTED LEUKOCYTES BY MANUAL COUNT 67 Normal [facility] Comment on above: Performed By: #### L [id number], [id number] ####Vb Net Programmer: JAVID LUTHER ([phone])[facility] [place] OVALOCYTES PRESENCE IN BLOOD BY LIGHT MICROSCOPY Slight Abnormal (none) [facility] Comment on above: Performed By: #### L [id number], [id number] ####Vb Net Programmer: JAVID LUTHER ([id number])[facility] [place] PLATELET MORPHOLOGY IN BLOOD Normal Normal [facility] Comment on above: Performed By: #### L [id number], [id number] ####Vb Net Programmer: JAVID LUTHER ([phone])[facility] [place] [place] [address] [place] SEGEMENTED NEUTROPHILS/100 LEUKOCYTES BY MANUAL COUNT 67 % Normal 40-80 [facility] Comment on above: Performed By: #### L [id number], [id number] ####Vb Net Programmer: JAVID LUTHER ([phone])[facility] [place] ([facility])[address] Manual differential performe d Ql (Bld)Ordered By: Conner Cardenas on 09-09-2023 Anisocytosis Ql (Bld) Moderate Abnormal (none) [facility] Basophils (Bld) [#/Vol] 0.1 10*3/uL 0.0 - 0.2 10*3/uL [facility] Basophils Manual 1 [facility] Basophils/100 WBC (Bld) 1 % 0 - 2 % [facility] Cells Counted Total (Bld) [#] 100 {cells} [facility] Differential Method Automated differenti al reported after manual slide review [facility] Eosinophils (Bld) [#/Vol] 0.4 10*3/uL 0.0 - 0.5 10*3/uL [facility] Eosinophils Manual 4 High 0 - 1 [facility] Eosinophils/100 WBC (Bld) 4 % 1 - 6 % [facility] Hypochromia Ql (Bld) Slight Abnormal (none) [facility] Interpretation and review of laboratory results Abnormal [facility] Leukocyte morphology finding Nom (Bld) Normal [facility] Lymphocytes (Bld) [#/Vol] 2.0 10*3/uL 1.0 - 4.3 10*3/uL [facility] Lymphocytes Manual 21 [facility] Lymphocytes/100 WBC (Bld) 21 % 20 - 40 % [facility] Microcytes Ql (Bld) Slight Abnormal (none) [facility] Monocytes (Bld) [#/Vol] 0.7 10*3/uL 0.0 - 0.8 10*3/uL [facility] Monocytes Manual 7 [facility] Monocytes/100 WBC (Bld) 7 % 2 - 10 % [facility] Neutrophils (Bld) [#/Vol] 6.3 10*3/uL 1.8 - 7.0 10*3/uL [facility] Neutrophils Manual 67 [facility] Ovalocytes LM Ql (Bld) Slight Abnormal (none) [facility] Platelet morphology finding Nom (Bld) Normal [facility] Segmented neutrophils/100 WBC (Bld) 67 % 40 - 80 % [facility] WBC corrected for nucl RBC (Bld) [#/Vol] 9.4 10*3/uL 3.6 - 10.7 10*3/uL [facility] No Panel Informationon 09-09 [facility] P [place] 55 degrees [facility] FL Interval 157 ms [facility] QRS [place] -7 degrees [facility] QRSD Interval 81 ms [facility] QT Interval 455 ms [facility] QTC Interval 501 ms [facility] T Wave [place] 28 degrees [facility] Sinus rhythm Low voltage, precordial leads Borderline prolonged QT interval Electronically Signed On 09-09-2023 19:59:30 EST by Lenny Grajeda MD - 09/09/2023 IMPRESSION: Sinus rhythm Low voltage, precordial leads Borderline prolonged QT interval Electronically Signed On 09-09-2023 19:59:30 EST by Lenny Macdonald [facility] Interpretation and review of laboratory results Abnormal [facility] CHEMISTRY SPECIMEN SLIGHTLY HEMOLYZED; INTERPRET WITH CAUTION! [facility] Interpretation and review of laboratory results Abnormal [facility] SARS-COV-2, FLU A/B, AND RSV [...] In compliance with this authorization, please visit www.fda.gov/media/74804 5/download or www.fda.gov/media/46755 6/download to access the applicable information sheets. Normal [facility] Comment on above: Performed By: #### L [id number] #### Vb Net Programmer: JAVID LUTHER ([id number]) [facility] ([facility]) [address] [place] [address] TROPONIN, WITH SERIAL REFLEX on 09-09-2023 Troponin I.cardiac [Mass/Vol] ng/mL Normal <0.034 [facility] Comment on above: Result Comment: KIKE Cohen COMMENTS: Patients with high levels of Biotin oral intake (ie >5 mg/day) may have falsely decreased Troponin levels. Performed By: #### L [id number], [id number], [id number], [id number] ####Vb Net Programmer: JAVID LUTHER ([phone])[facility] ([facility])[address] [place] [address] Troponin I.cardiac [Mass/Vol ]on 09-09-2023 Interpretation and review of laboratory results Normal [facility] Patients with high levels of Biotin oral intake (ie >5 mg/day) may have falsely decreased Troponin levels. [facility] Interpretation and review of laboratory results Normal [facility] Patients with high levels of Biotin oral intake (ie >5 mg/day) may have falsely decreased Troponin levels. [facility] Urinalysis complete panel (U )on 09-09-2023 Bacteria LM.HPF (Urine sed) [#/Area] Moderate Abnormal Negative /HPF [facility] Bilirubin Ql (U) Negative Negative mg/dL [facility] Clarity (U) Clear Clear [facility] Color (U) Yellow Lt. Yellow [facility] Epithelial cells.squamous LM.HPF (Urine sed) [#/Area] 6-10 Abnormal [facility] Glucose Ql (U) Normal Normal (<70) mg/dL [facility] Hemoglobin Ql (U) 0.2 mg/dL Abnormal Negative [facility] Interpretation and review of laboratory results Abnormal [facility] Ketones (U) [Mass/Vol] Negative Negative mg/d L [facility] Leukocyte esterase Test strip Ql (U) Negative Negative Joo/uL [facility] Mucus LM.HPF (Urine sed) [#/Area] Few Negative /LPF [facility] Nitrite Ql (U) Negative Negative [facility] Non-Squamous Epithalial Cells, Urine 0-2 Abnormal Negative /HPF [facility] pH (U) 6.5 [pH] 5.0 - 8.0 pH [facility] Protein (U) [Mass/Vol] Negative Negative mg/d L [facility] RBC LM.HPF (Urine sed) [#/Area] 3-5 Abnormal [facility] Specific gravity (U) [Rel density] 1.010 1.005 - 1.030 [facility] Urobilinogen (U) [Mass/Vol] Normal Normal (0-1) mg/dL [facility] WBC LM.HPF (Urine sed) [#/Area] 0-2 [facility] Vital signson 09-09-2023 Heart rate 73 /min bpm [facility] XR Chest Single viewon 09-09 1. No acute finding. Report Dictated on Electronically Signed By: James Will MD Electronically Signed Date/Time: 09/09/2023 6:48 PM EST [facility] Patient Name: CAROLINA HIGHTOWER : [...] pneumothorax. No vascular congestion. Heart size normal. [facility] James Will MD - 09/09/2023 Patient [...] Electronically Signed Date/Time: 09/09/2023 6:48 PM EST [facility] Radiology Study observation (narrative) [facility] XR Chest Single viewOrdered By: James Will on 09-09-2023 [facility] [employer] Work Phone: Absolute lymphocyte countOrd ered By: Darius Rosales on 08-22-2023 Lymphocytes Auto (Unsp spec) [#/Vol] 1.92 10*3/uL 0.83-4.51 [facility] Basophil percentageOrdered B y: Darius Rosales on 08-22-2023 Ammonia (P) [Moles/Vol] 76.0 umol/L 11-32 [facility] Basophil percentage 76.0 umol/L 11-32 [facility] Basophil percentage 124 mg/dL 74-106 [facility] Basophil percentage 6.7 g/dL 6.4-8.2 [facility] Basophil percentage 1.80 mg/dL 0.20-1.00 [facility] Basophil percentage 139 mmol/L 136-145 [facility] Basophil percentage 3.4 mmol/L 3.5-5.1 [facility] Basophil percentage 110 mmol/L 98-107 [facility] Basophils (Bld) [#/Vol] 6.5 10*3/uL 4.4-11.0 [facility] Basophils (Bld) [#/Vol] 3.6 10*3/uL 2.0-7.7 [facility] Basophils/100 WBC (Bld) 0.9 % 0-1 [facility] Basophils/100 WBC (Bld) 54.4 % 47-70 [facility] Basophils/100 WBC (Bld) 4.1 % 0-5 [facility] Bilirubin [Mass/Vol] 1.80 mg/dL 0.20-1.00 [facility] Comment on above: For patients on eltr ombopag therapy, use of Dimension [place] TBIL is not recommended. Chloride [Moles/Vol] 110 mmol/L 98-107 [facility] Eosinophils/100 WBC (Bld) 4.1 % 0-5 [facility] Glucose [Mass/Vol] 124 mg/dL 74-106 [facility] Comment on above: Fasting Glucose resu lt from 100 to 125 mg/dL suggests IMPAIRED HOMEOSTASIS per A.D.A. criteria. Neutrophils (Bld) [#/Vol] 3.6 10*3/uL 2.0-7.7 [facility] Neutrophils/100 WBC (Bld) 54.4 % 47-70 [facility] Potassium [Moles/Vol] 3.4 mmol/L 3.5-5.[address] [facility] Protein [Mass/Vol] 6.7 g/dL 6.4-8.2 [facility] Sodium [Moles/Vol] 139 mmol/L 136-145 [facility] WBC (Bld) [#/Vol] 6.5 10*3/uL 4.4-11.0 [facility] Beta hCG serum qualOrdered B y: Darius Rosales on 08-22-2023 Beta HCG ( test) Ql Negative [facility] Blood erythrocytes count (nu mber/volume)Ordered By: Darius Rosales on 08-22-2023 RBC (Bld) [#/Vol] 4.46 10*6/uL 4.2-5.4 [facility] Blood hemoglobin measurement (mass/volume)Ordered By: Darius Rosales on 08-22-2023 Hemoglobin (Bld) [Mass/Vol] 10.2 g/dL 12.0-15.0 [facility] Blood lymphocytes/100 leukoc ytesOrdered By: Darius Roasles on 08-22-2023 Lymphocytes/100 WBC (Bld) 29.4 % 19-41 [facility] Blood monocytes/100 leukocyt esOrdered By: Darius Rosales on 08-22-2023 Monocytes/100 WBC (Bld) 11.0 % 0-10 [facility] Blood platelet adequacy dete ction by light microscopyOrdered By: Darius Rosales on 08-22-2023 Platelets LM Ql (Bld) MOD DEC ADEQ [facility] COVID-19 virus antigen assay Ordered By: Darius Rosales on 08-22-2023 SARS-CoV-2 (COVID-19) Ag IA.rapid Ql (Resp) [facility] SARS-CoV-2 (COVID-19) Ag IA.rapid Ql (Resp) [facility] Determination of erythrocyte mean corpuscular volume (MCV)Ordered By: Darius Rosales on 08-22-2023 MCV (RBC) [Entitic vol] 75.8 fL 81-99 [facility] Hematocrit Auto (Bld) [Volum e fraction]Ordered By: Darius Rosales on 08-22-2023 Hematocrit (Bld) [Volume fraction] 33.8 % 37-47 [facility] Laboratory - Chemistry and C hemistry - challengeOrdered By: Darius Rosales on 08-22-2023 ALP [Catalytic activity/Vol] 156 U/L 45-117 [facility] ALT [Catalytic activity/Vol] 66 U/L 13-56 [facility] CO2 [Moles/Vol] 25.0 mmol/L 21.0-32.0 [facility] Globulin (S) [Mass/Vol] 3.7 g/dL 2.2-4.2 [facility] Urea nitrogen/Creatinine [Mass ratio] 11.9 mg/mg 10-20 [facility] - Drug toxicology Ordered By: Darius Rosales on 08-22-2023 Amphetamines Ql (U) Positive <1000 ng/mL [facility] Benzodiazepines Ql (U) Negative < 200 ng/mL [facility] Cannabinoids Screen Ql (U) Positive < 50 ng/mL [facility] Cocaine Ql (U) Negative < 300 ng/mL [facility] Opiates Ql (U) Negative < 300 ng/mL [facility] - Hematology and Cell countsOrdered By: Darius Rosales on 08-22-2023 Anisocytosis Ql (Bld) 1+ [facility] Erythrocyte distribution width (RBC) [Entitic vol] 56.9 fL 35.1-43.9 [facility] Erythrocyte distribution width (RBC) [Ratio] 20.7 % 11.6-14.6 [facility] Immature granulocytes/100 WBC (Bld) 0.200 % 0.0-0.9 [facility] Comment on above: IG% - Immature Granu locytes (promyelocytes, myelocytes and metamyelocytes) > 1% indicates that a LEFT SHIFT is Present. MCH (RBC) [Entitic mass] 22.9 pg 27.0-32.0 [facility] Nucleated RBC/100 WBC (Bld) [Ratio] 0 % 0-5 [facility] MCHC Auto (RBC) [Mass/Vol]Or dered By: Darius Rosales on 08-22-2023 MCHC (RBC) [Mass/Vol] 30.2 g/dL 32-[address] [facility] No Panel InformationOrdered By: Darius Rosales on 08-22-2023 Estimated Creatinine Clearance Calc 58.50 ml/min [facility] Estimated GFR (MDRD) Amer 83 mL/min >60 [facility] Comment on above: GFR Calc Estimated GFR (MDRD) Non-Af Amer 68 mL/min >60 [facility] Comment on above: Non- GFR Calc Ethyl Alcohol Level < 3.0 mg/dL [facility] Comment on above: The serum:whole bloo d ethanol ratio is approximately 1.14and varies slightly with hematocrit. Medical Alcohol reference interval and critical value innon-tolerant individuals; 50 - 100 Impairment 100 Intoxication 100 - 250 Severe Poisoning 250 - 400 Deep/possible fatal coma 22.9 pg 27.0-32.0 [facility] 20.7 % 11.6-14.6 [facility] 56.9 fl 35.1-43.9 [facility] 0.200 % 0.0-0.9 [facility] 0 % 0-5 [facility] 1+ [facility] 68 mL/min >60 [facility] 83 mL/min >60 [facility] 58.50 ml/min [facility] 11.9 RATIO 10-20 [facility] 3.7 g/dL 2.2-4.2 [facility] 156 U/L 45-117 [facility] 66 U/L 13-56 [facility] 25.0 mmol/L 21.0-32.0 [facility] < 3.0 mg/dL [facility] MDMA (Ecstasy) Screen Positive < 500 ng/mL [facility] Urine Barbiturates Screen Negative < 200 ng/mL [facility] Urine Drug Screen Comment [facility] Comment on above: CONFIRMATORY TESTING FOR [...] Urine Methadone Screen Negative < 300 ng/mL [facility] Positive < 50 ng/mL [facility] Negative < 300 ng/mL [facility] Platelets bldOrdered By: Leland Rosales on 08-22-2023 Platelets (Bld) [#/Vol] 74 10*3/uL 150-450 [facility] Serum or plasma albumin latrice urement (mass/volume)Ordered By: Darisu Rosales on 08-22-2023 Albumin [Mass/Vol] 3.0 g/dL 3.2-5.0 [facility] Serum or plasma albumin/glob ulin mass ratioOrdered By: Darius Rosales on 08-22-2023 Albumin/Globulin [Mass ratio] 0.8 {ratio} 0.9-2.4 [facility] Serum or plasma calcium latrice urement (mass/volume)Ordered By: Darius Rosales on 08-22-2023 Calcium [Mass/Vol] 8.7 mg/dL 8.5-10.1 [facility] Serum or plasma creatinine m easurement (mass/volume)Ordered By: Darius Rosales on 08-22-2023 Creatinine [Mass/Vol] 0.92 mg/dL 0.55-1.[address] [facility] Comment on above: The validity of the calculated GFR & GFRAA in patients over 70 years has not been determined. Clinical correlation is essential. Serum or plasma urea nitroge n measurement (mass/volume)Ordered By: Darius Rosales on 08-22-2023 Urea nitrogen [Mass/Vol] 11 mg/dL 7-18 [facility] Thin prep Papanicolaou smear with manual screeningOrdered By: Darius Rosales on 08-22-2023 Thin prep Papanicolaou smear with manual screening 123 U/L 15-37 [facility] Thin prep Papanicolaou smear with manual screening 4 5-15 [facility] Urine phencyclidine (PCP) de tectionOrdered By: Darius Rosales on 08-22-2023 Phencyclidine Ql (U) Negative < 25 ng/mL [facility] Anaerobic cultureOrdered By: Son Adams on 08-15-2023 Bacteria identified Anaer cx Nom (Unsp spec) No growth in 5 days. [facility] Bacteria identified Anaer cx Nom (Unsp spec) No growth in 5 days. [facility] Bacterial body fluid culture Ordered By: Son Adams on 08-15-2023 Bacteria identified Cx Nom (Body fld) No growth aerobically. [facility] Bacteria identified Cx Nom (Body fld) No growth aerobically. [facility] Body fluid appearanceOrdered By: Son Adams on 08-15-2023 Appearance (Body fld) CLEAR [facility] Body fluid color determinati onOrdered By: Son Adams on 08-15-2023 Color (Body fld) LT YEL [facility] Body fluid lactate dehydroge nase measurement (enzymatic activity/volume) by pyruvateOrdered By: Son Adams on 08-15-2023 LDH Pyruvate to lactate reaction (Body fld) [Catalytic activity/Vol] 41 Units/L Not Establ. [facility] Body fluid leukocytes count (number/volume)Ordered By: Son Adams on 08-15-2023 WBC (Body fld) [#/Vol] 0.155 10*3/uL [facility] Body fluid lymphocytes/100 l eukocytesOrdered By: Son Adams on 08-15-2023 Lymphocytes/100 WBC (Body fld) 51 % [facility] Body fluid macrophage countO rdered By: Son Adams on 08-15-2023 Macrophages (Body fld) [#/Vol] 5 % [facility] Body fluid protein measureme nt (mass/volume)Ordered By: Son Adams on 08-15-2023 Protein (Body fld) [Mass/Vol] 0.8 g/dL Not Establ. [facility] Body fluid segmented neutrop hils count (number/volume)Ordered By: Son Adams on 08-15-2023 Segmented neutrophils (Body fld) [#/Vol] 4 % [facility] Cytology report of Body flui d Cyto stainOrdered By: Son Adams on 08-15-2023 Cytology report Cyto stain Doc (Body fld) SEE PATHOLOGY REPORT [facility] Comment on above: Specimen submitted t o Anatomical Pathology Department for testing. Gram stain for investigation of transfusion reactionOrdered By: Son Adams on 08-15-2023 Microscopic observation Gram stain Nom (Unsp spec) [facility] Microscopic observation Gram stain Nom (Unsp spec) [facility] Mononuclear cells Auto (Body fld) [#/Vol]Ordered By: Son Adams on 08-15-2023 Mononuclear cells (Body fld) [#/Vol] 0.149 10*3/uL [facility] No Panel InformationOrdered By: Son Adams on 08-15-2023 Body Fluid Comment 2 SEE COMMENT [facility] Body Fluid Glucose 101 mg/dL 40-70 [facility] Body Fluid Mononuclear WBCs (%) 96.1 % [facility] Body Fluid Pathologist Comment Reviewed [facility] Comment on above: Previous reported re sult: May follow Edited by: SARAH on 08/17/23:1500Negative for malignant cells.Lonnie Nelson D.O. 08/17/23 AMENDED REPORT 08/17/23 1500 PATH COMM/BF previously reported as: May follow Body Fluid Polynuclear WBCs (#) 0.006 10^3/uL [facility] Body Fluid Polynuclear WBCs (%) 3.9 % [facility] Body Fluid RBC 185 /mm3 [facility] 185 /mm3 [facility] 3.9 % [facility] 96.1 % [facility] 0.006 10^3/uL [facility] Reviewed [facility] SEE COMMENT [facility] 101 mg/dL 40-70 [facility] Specimen source identificati on of body fluidOrdered By: Son Adams on 08-15-2023 Specimen source Nom (Body fld) OTHER [facility] Comment on above: PARACENTESIS. Thin prep Papanicolaou smear with manual screeningOrdered By: Son Adams on 08-15-2023 Thin prep Papanicolaou smear with manual screening 37 % [facility] Thin prep Papanicolaou smear with manual screening 3 % [facility] Total cell countOrdered By: Son Adams on 08-15-2023 Cells counted Molgen (Bld/Tiss) [#] 0.228 10^3/ul 0.000-0.000 [facility] Comment on above: This is the Total Nu mber of Nucleated Cell Types in the Body Fluid. Anaerobic cultureOrdered By: Gurinder Mittal on 07-22-2023 Bacteria identified Anaer cx Nom (Unsp spec) No growth in 5 days. [facility] Bacterial body fluid culture Ordered By: Gurinder Mittal on 07-22-2023 Bacteria identified Cx Nom (Body fld) Culture exhibits no growth. [facility] Gram stain for investigation of transfusion reactionOrdered By: Gurnider Mittal on 07-22-2023 Microscopic observation Gram stain Nom (Unsp spec) [facility] Absolute lymphocyte countOrd ered By: Gurinder Mittal on 07-21-2023 Lymphocytes Auto (Unsp spec) [#/Vol] 1.71 10*3/uL 0.83-4.51 [facility] Basophil percentageOrdered B y: Gurinder Mittal on 07-21-2023 Basophil percentage 155 mg/dL 74-106 [facility] Basophil percentage 5.8 g/dL 6.4-8.2 [facility] Basophil percentage 1.20 mg/dL 0.20-1.00 [facility] Basophil percentage 140 mmol/L 136-145 [facility] Basophil percentage 3.3 mmol/L 3.5-5.1 [facility] Basophil percentage 112 mmol/L 98-107 [facility] Basophils (Bld) [#/Vol] 5.4 10*3/uL 4.4-11.0 [facility] Basophils (Bld) [#/Vol] 2.8 10*3/uL 2.0-7.7 [facility] Basophils/100 WBC (Bld) 0.9 % 0-1 [facility] Basophils/100 WBC (Bld) 52.2 % 47-70 [facility] Basophils/100 WBC (Bld) 4.3 % 0-5 [facility] Bilirubin [Mass/Vol] 1.20 mg/dL 0.20-1.00 [facility] Comment on above: For patients on eltr ombopag therapy, use of Dimension [place] TBIL is not recommended. Chloride [Moles/Vol] 112 mmol/L 98-107 [facility] Eosinophils/100 WBC (Bld) 4.3 % 0-5 [facility] Glucose [Mass/Vol] 155 mg/dL 74-106 [facility] Comment on above: Fasting Glucose resu lt greater than or equal to 126 mg/dL suggests DIABETES MELLITUS per A.D.A. criteria. Neutrophils (Bld) [#/Vol] 2.8 10*3/uL 2.0-7.7 [facility] Neutrophils/100 WBC (Bld) 52.2 % 47-70 [facility] Potassium [Moles/Vol] 3.3 mmol/L 3.5-5.[address] [facility] Protein [Mass/Vol] 5.8 g/dL 6.4-8.2 [facility] Sodium [Moles/Vol] 140 mmol/L 136-145 [facility] WBC (Bld) [#/Vol] 5.4 10*3/uL 4.4-11.0 [facility] Blood erythrocytes count (nu mber/volume)Ordered By: Gurinder Mittal on 07-21-2023 RBC (Bld) [#/Vol] 3.88 10*6/uL 4.2-5.4 [facility] Blood hemoglobin measurement (mass/volume)Ordered By: Gurinder Mittal on 07-21-2023 Hemoglobin (Bld) [Mass/Vol] 8.7 g/dL 12.0-15.0 [facility] Blood lymphocytes/100 leukoc ytesOrdered By: Gurinder Mittal on 07-21-2023 Lymphocytes/100 WBC (Bld) 31.8 % 19-41 [facility] Blood manual differential co mment interpretation (narrative result)Ordered By: Gurinder Mittal on 07-21-2023 Manual differential comment Eliezer (Bld) [Interp] SCANNED [facility] Blood monocytes/100 leukocyt esOrdered By: Gurinder Mittal on 07-21-2023 Monocytes/100 WBC (Bld) 10.6 % 0-10 [facility] Blood platelet adequacy dete ction by light microscopyOrdered By: Gurinder Mittal on 07-21-2023 Platelets LM Ql (Bld) MKD DEC ADEQ [facility] Body fluid appearanceOrdered By: Gurinder Mittal on 07-21-2023 Appearance (Body fld) CLEAR [facility] Body fluid color determinati onOrdered By: Gurinder Mittal on 07-21-2023 Color (Body fld) YELLOW [facility] Body fluid leukocytes count (number/volume)Ordered By: Gurinder Mittal on 07-21-2023 WBC (Body fld) [#/Vol] 0.147 10*3/uL [facility] Body fluid lymphocytes/100 l eukocytesOrdered By: Gurinder Mittal on 07-21-2023 Lymphocytes/100 WBC (Body fld) 48 % [facility] Body fluid macrophage countO rdered By: Gurinder Mitatl on 07-21-2023 Macrophages (Body fld) [#/Vol] 11 % [facility] Body fluid mesothelial cell percentageOrdered By: Gurinder Mittal on 07-21-2023 Mesothelial cells/100 WBC (Body fld) 16 % [facility] Body fluid segmented neutrop hils count (number/volume)Ordered By: Gurinder Mittal on 07-21-2023 Segmented neutrophils (Body fld) [#/Vol] 6 % [facility] Determination of erythrocyte mean corpuscular volume (MCV)Ordered By: Gurinder Mittal on 07-21-2023 MCV (RBC) [Entitic vol] 77.3 fL 81-99 [facility] Hematocrit Auto (Bld) [Volum e fraction]Ordered By: Gurinder Mittal on 07-21-2023 Hematocrit (Bld) [Volume fraction] 30.0 % 37-47 [facility] Hypochromatic red blood cell detectionOrdered By: Gurinder Mittal on 07-21-2023 Hypochromia Ql (Bld) 1+ [facility] Laboratory - Chemistry and C hemistry - challengeOrdered By: Gurinder Mittal on 07-21-2023 ALP [Catalytic activity/Vol] 141 U/L 45-117 [facility] ALT [Catalytic activity/Vol] 69 U/L 13-56 [facility] CO2 [Moles/Vol] 23.0 mmol/L 21.0-32.0 [facility] Globulin (S) [Mass/Vol] 3.4 g/dL 2.2-4.2 [facility] Urea nitrogen/Creatinine [Mass ratio] 8.3 mg/mg 10-20 [facility] Laboratory - Hematology and Cell countsOrdered By: Gurinder Mittal on 07-21-2023 Anisocytosis Ql (Bld) 2+ [facility] Erythrocyte distribution width (RBC) [Entitic vol] 60.9 fL 35.1-43.9 [facility] Erythrocyte distribution width (RBC) [Ratio] 21.8 % 11.6-14.6 [facility] Immature granulocytes/100 WBC (Bld) 0.200 % 0.0-0.9 [facility] Comment on above: IG% - Immature Granu locytes (promyelocytes, myelocytes and metamyelocytes) > 1% indicates that a LEFT SHIFT is Present. MCH (RBC) [Entitic mass] 22.4 pg 27.0-32.0 [facility] Nucleated RBC/100 WBC (Bld) [Ratio] 0 % 0-5 [facility] MCHC Auto (RBC) [Mass/Vol]Or dered By: Gurinder Mittal on 07-21-2023 MCHC (RBC) [Mass/Vol] 29.0 g/dL 32-[address] [facility] Comment on above: Delta: 30.7 on 07/20-1835 Macrocytes detectionOrdered By: Gurinder Mittal on 07-21-2023 Macrocytes Ql (Bld) 1+ [facility] Mononuclear cells Auto (Body fld) [#/Vol]Ordered By: Gurinder Mittal on 07-21-2023 Mononuclear cells (Body fld) [#/Vol] 0.137 10*3/uL [facility] No Panel InformationOrdered By: Gurinder Mittal on 07-21-2023 Body Fluid Comment 2 SEE COMMENT [facility] Body Fluid Mononuclear WBCs (%) 93.2 % [facility] Body Fluid Pathologist Comment May follow [facility] Body Fluid Pathologist Comment Reviewed [facility] Comment on above: Previous reported re sult: May follow Edited by: RGOSHIRA on 07/22/23:0952Negative for malignant cells.Please also refer to patient's cytology report [id number].Wilder Godfrey M.D. 07/22/23 AMENDED REPORT 07/22/23 0952 PATH COMM/BF previously reported as: May follow Body Fluid Polynuclear WBCs (#) 0.010 10^3/uL [facility] Body Fluid Polynuclear WBCs (%) 6.8 % [facility] Body Fluid RBC 100 /mm3 [facility] 100 /mm3 [facility] 6.8 % [facility] 93.2 % [facility] 0.010 10^3/uL [facility] Reviewed [facility] SEE COMMENT [facility] Estimated Creatinine Clearance Calc 56.07 ml/min [facility] Estimated GFR (MDRD) Amer 79 mL/min >60 [facility] Comment on above: GFR Calc Estimated GFR (MDRD) Non-Af Amer 66 mL/min >60 [facility] Comment on above: Non- GFR Calc 22.4 pg 27.0-32.0 [facility] 21.8 % 11.6-14.6 [facility] 60.9 fl 35.1-43.9 [facility] 0.200 % 0.0-0.9 [facility] 0 % 0-5 [facility] 2+ [facility] 66 mL/min >60 [facility] 79 mL/min >60 [facility] 56.07 ml/min [facility] 8.3 RATIO 10-20 [facility] 3.4 g/dL 2.2-4.2 [facility] 141 U/L 45-117 [facility] 69 U/L 13-56 [facility] 23.0 mmol/L 21.0-32.0 [facility] Platelets bldOrdered By: Luis Mittal on 07-21-2023 Platelets (Bld) [#/Vol] 55 10*3/uL 150-450 [facility] Serum or plasma albumin latrice urement (mass/volume)Ordered By: Gurinder Mittal on 07-21-2023 Albumin [Mass/Vol] 2.4 g/dL 3.2-5.0 [facility] Serum or plasma albumin/glob ulin mass ratioOrdered By: Gurinder Mittal on 07-21-2023 Albumin/Globulin [Mass ratio] 0.7 {ratio} 0.9-2.4 [facility] Serum or plasma calcium latrice urement (mass/volume)Ordered By: Gurinder Mittal on 07-21-2023 Calcium [Mass/Vol] 8.3 mg/dL 8.5-10.1 [facility] Serum or plasma creatinine m easurement (mass/volume)Ordered By: Gurinder Mittal on 07-21-2023 Creatinine [Mass/Vol] 0.96 mg/dL 0.55-1.[address] [facility] Comment on above: The validity of the calculated GFR & GFRAA in patients over 70 years has not been determined. Clinical correlation is essential. Serum or plasma urea nitroge n measurement (mass/volume)Ordered By: Gurinder Mittal on 07-21-2023 Urea nitrogen [Mass/Vol] 8 mg/dL 7-18 [facility] Specimen source identificati on of body fluidOrdered By: Gurinder Mittal on 07-21-2023 Specimen source Nom (Body fld) ASCITES FLUID [facility] Thin prep Papanicolaou smear with manual screeningOrdered By: Gurinder Mittal on 07-21-2023 Thin prep Papanicolaou smear with manual screening 19 % [facility] Thin prep Papanicolaou smear with manual screening 1+ [facility] Thin prep Papanicolaou smear with manual screening 116 U/L 15-37 [facility] Thin prep Papanicolaou smear with manual screening 5 5-15 [facility] Total cell countOrdered By: Gurinder Mittal on 07-21-2023 Cells counted Molgen (Bld/Tiss) [#] 0.210 10^3/ul 0.000-0.000 [facility] Comment on above: This is the Total Nu mber of Nucleated Cell Types in the Body Fluid. Absolute lymphocyte countOrd ered By: Darius Rosales on 07-20-2023 Lymphocytes Auto (Unsp spec) [#/Vol] 1.87 10*3/uL 0.83-4.51 [facility] Basophil percentageOrdered B y: Darius Rosales on 07-20-2023 Basophils/100 WBC (Bld) 0.8 % 0-1 [facility] Bilirubin [Mass/Vol] 1.70 mg/dL 0.20-1.00 [facility] Comment on above: For patients on eltr ombopag therapy, use of Dimension [place] TBIL is not recommended. Chloride [Moles/Vol] 112 mmol/L 98-107 [facility] Eosinophils/100 WBC (Bld) 4.2 % 0-5 [facility] Glucose [Mass/Vol] 86 mg/dL 74-106 [facility] Neutrophils (Bld) [#/Vol] 3.5 10*3/uL 2.0-7.7 [facility] Neutrophils/100 WBC (Bld) 55.7 % 47-70 [facility] Potassium [Moles/Vol] 3.7 mmol/L 3.5-5.[address] [facility] Protein [Mass/Vol] 6.4 g/dL 6.4-8.2 [facility] Sodium [Moles/Vol] 142 mmol/L 136-145 [facility] WBC (Bld) [#/Vol] 6.2 10*3/uL 4.4-11.0 [facility] Blood erythrocytes count (nu mber/volume)Ordered By: Darius Rosales on 07-20-2023 RBC (Bld) [#/Vol] 4.19 10*6/uL 4.2-5.4 [facility] Blood hemoglobin measurement (mass/volume)Ordered By: Darius Rosales on 07-20-2023 Hemoglobin (Bld) [Mass/Vol] 9.7 g/dL 12.0-15.0 [facility] Blood lymphocytes/100 leukoc ytesOrdered By: Darius Rosales on 07-20-2023 Lymphocytes/100 WBC (Bld) 30.0 % 19-41 [facility] Blood monocytes/100 leukocyt esOrdered By: Darius Rosales on 07-20-2023 Monocytes/100 WBC (Bld) 9.1 % 0-10 [facility] Blood platelet adequacy dete ction by light microscopyOrdered By: Darius Rosales on 07-20-2023 Platelets LM Ql (Bld) MOD DEC ADEQ [facility] Blood platelet mean volumeOr dered By: Darius Rosales on 07-20-2023 Platelet mean volume (Bld) [Entitic vol] TNP [facility] Comment on above: Test not performed Blood platelet morphology de termination (nominal result)Ordered By: Darius Rosales on 07-20-2023 Platelet morphology finding Nom (Bld) LARGE [facility] Determination of erythrocyte mean corpuscular volume (MCV)Ordered By: Darius Rosales on 07-20-2023 MCV (RBC) [Entitic vol] 75.4 fL 81-99 [facility] Direct bilirubinOrdered By: Darius Rosales on 07-20-2023 Bilirubin.direct [Mass/Vol] 0.87 mg/dL 0.00-0.30 [facility] Hematocrit Auto (Bld) [Volum e fraction]Ordered By: Darius Rosales on 07-20-2023 Hematocrit (Bld) [Volume fraction] 31.6 % 37-47 [facility] Hypochromatic red blood cell detectionOrdered By: Darius Rosales on 07-20-2023 Hypochromia Ql (Bld) RARE [facility] INR in Blood by Coagulation assayOrdered By: Darius Rosales on 07-20-2023 INR Coag (Bld) [Relative time] 1.7 {INR} [facility] - Chemistry and C hemistry - challengeOrdered By: Darius Rosales on 07-20-2023 ALP [Catalytic activity/Vol] 156 U/L 45-117 [facility] ALT [Catalytic activity/Vol] 76 U/L 13-56 [facility] CO2 [Moles/Vol] 26.0 mmol/L 21.0-32.0 [facility] Globulin (S) [Mass/Vol] 3.6 g/dL 2.2-4.2 [facility] Lipase [Catalytic activity/Vol] 49 U/L 13-75 [facility] Comment on above: Please note:LIPASE r evised reference range effective 23. New Lipase methodology. Expected to produce lower values than the previous assay method. NEW Reference Range: 13 - 75 U/L Urea nitrogen/Creatinine [Mass ratio] 9.6 mg/mg 10-20 [facility] - CoagulationOrde red By: Darius Rosales on 07-20-2023 PT Coag (PPP) [Time] 19.6 s 11.7-14.9 [facility] - Hematology and Cell countsOrdered By: Darius Rosales on 07-20-2023 Anisocytosis Ql (Bld) 1+ [facility] Erythrocyte distribution width (RBC) [Entitic vol] 59.2 fL 35.1-43.9 [facility] Erythrocyte distribution width (RBC) [Ratio] 21.8 % 11.6-14.6 [facility] Immature granulocytes/100 WBC (Bld) 0.200 % 0.0-0.9 [facility] Comment on above: IG% - Immature Granu locytes (promyelocytes, myelocytes and metamyelocytes) > 1% indicates that a LEFT SHIFT is Present. MCH (RBC) [Entitic mass] 23.2 pg 27.0-32.0 [facility] Nucleated RBC/100 WBC (Bld) [Ratio] 0 % 0-5 [facility] MCHC Auto (RBC) [Mass/Vol]Or dered By: Darius Rosales on 07-20-2023 MCHC (RBC) [Mass/Vol] 30.7 g/dL 32-[address] [facility] No Panel InformationOrdered By: Darius Rosales on 07-20-2023 Estimated Creatinine Clearance Calc 57.26 ml/min [facility] Estimated GFR (MDRD) Amer 82 mL/min >60 [facility] Comment on above: GFR Calc Estimated GFR (MDRD) Non-Af Amer 68 mL/min >60 [facility] Comment on above: Non- GFR Calc 19.6 SECONDS 11.7-14.9 [facility] 49 U/L 13-75 [facility] Ovalocyte detectionOrdered B y: Darius Rosales on 07-20-2023 Ovalocytes LM Ql (Bld) RARE [facility] Platelets bldOrdered By: Leland Rosales on 07-20-2023 Platelets (Bld) [#/Vol] 59 10*3/uL 150-450 [facility] RBC morphologyOrdered By: Do lucille Rosales on 07-20-2023 RBC morphology finding Nom (Bld) N CHROM NORMAL NORM C&C [facility] Serum or plasma albumin latrice urement (mass/volume)Ordered By: Darius Rosales on 07-20-2023 Albumin [Mass/Vol] 2.8 g/dL 3.2-5.0 [facility] Serum or plasma calcium latrice urement (mass/volume)Ordered By: Darius Rosales on 07-20-2023 Calcium [Mass/Vol] 8.5 mg/dL 8.5-10.1 [facility] Serum or plasma creatinine m easurement (mass/volume)Ordered By: Darius Rosales on 07-20-2023 Creatinine [Mass/Vol] 0.94 mg/dL 0.55-1.[address] [facility] Comment on above: The validity of the calculated GFR & GFRAA in patients over 70 years has not been determined. Clinical correlation is essential. Serum or plasma urea nitroge n measurement (mass/volume)Ordered By: Darius Rosales on 07-20-2023 Urea nitrogen [Mass/Vol] 9 mg/dL 7-18 [facility] Thin prep Papanicolaou smear with manual screeningOrdered By: Darius Rosales on 07-20-2023 Thin prep Papanicolaou smear with manual screening 1+ [facility] Thin prep Papanicolaou smear with manual screening 134 U/L 15-37 [facility] Thin prep Papanicolaou smear with manual screening 4 5-15 [facility] Absolute lymphocyte countOrd ered By: ED PROVIDER on 04-25-2023 Lymphocytes Auto (Unsp spec) [#/Vol] 1.45 10*3/uL 0.83-4.51 [facility] Basophil percentageOrdered B y: Shon Quintero on 04-25-2023 Basophil percentage 0-5 SEEN /hpf 0-5 [facility] Basophil percentageOrdered B y: ED PROVIDER on 04-25-2023 Basophils/100 WBC (Bld) 0.5 % 0-1 [facility] Bilirubin [Mass/Vol] 1.40 mg/dL 0.20-1.00 [facility] Comment on above: For patients on eltr ombopag therapy, use of Dimension [place] TBIL is not recommended. Chloride [Moles/Vol] 113 mmol/L 98-107 [facility] Eosinophils/100 WBC (Bld) 3.0 % 0-5 [facility] Glucose [Mass/Vol] 171 mg/dL 74-106 [facility] Comment on above: Fasting Glucose resu lt greater than or equal to 126 mg/dL suggests DIABETES MELLITUS per A.D.A. criteria. Neutrophils (Bld) [#/Vol] 4.0 10*3/uL 2.0-7.7 [facility] Neutrophils/100 WBC (Bld) 66.1 % 47-70 [facility] Potassium [Moles/Vol] 3.9 mmol/L 3.5-5.[address] [facility] Comment on above: Moderate Hemolysis, Result may be falsely increased. Protein [Mass/Vol] 7.3 g/dL 6.4-8.2 [facility] Sodium [Moles/Vol] 140 mmol/L 136-145 [facility] WBC (Bld) [#/Vol] 6.0 10*3/uL 4.4-11.0 [facility] Bilirubin Test strip Ql (U)O rdered By: Shon Quintero on 04-25-2023 Bilirubin Ql (U) 1 mg/dL Negative [facility] Comment on above: COLOR OF URINE MAY A FFECT DIPSTICK RESULTS. Blood erythrocytes count (nu mber/volume)Ordered By: ED PROVIDER on 04-25-2023 RBC (Bld) [#/Vol] 4.72 10*6/uL 4.2-5.4 [facility] Blood hemoglobin measurement (mass/volume)Ordered By: ED PROVIDER on 04-25-2023 Hemoglobin (Bld) [Mass/Vol] 10.7 g/dL 12.0-15.0 [facility] Blood lymphocytes/100 leukoc ytesOrdered By: ED PROVIDER on 04-25-2023 Lymphocytes/100 WBC (Bld) 24.1 % 19-41 [facility] Blood manual differential co mment interpretation (narrative result)Ordered By: Shon Quintero on 04-25-2023 Manual differential comment Eliezer (Bld) [Interp] SCANNED [facility] Blood monocytes/100 leukocyt esOrdered By: ED PROVIDER on 04-25-2023 Monocytes/100 WBC (Bld) 6.0 % 0-10 [facility] Determination of erythrocyte mean corpuscular volume (MCV)Ordered By: ED PROVIDER on 04-25-2023 MCV (RBC) [Entitic vol] 74.8 fL 81-99 [facility] Hematocrit Auto (Bld) [Volum e fraction]Ordered By: ED PROVIDER on 04-25-2023 Hematocrit (Bld) [Volume fraction] 35.3 % 37-47 [facility] INR in Blood by Coagulation assayOrdered By: Shon Quintero on 04-25-2023 INR Coag (Bld) [Relative time] 1.4 {INR} [facility] Ketones Test strip Ql (U)Ord ered By: Shon Quintero on 04-25-2023 Ketones Ql (U) 5 mg/dl Negative [facility] Laboratory - Chemistry and C hemistry - challengeOrdered By: ED PROVIDER on 04-25-2023 ALP [Catalytic activity/Vol] 153 U/L 45-117 [facility] ALT [Catalytic activity/Vol] 113 U/L 13-56 [facility] CO2 [Moles/Vol] 23.0 mmol/L 21.0-32.0 [facility] Globulin (S) [Mass/Vol] 4.3 g/dL 2.2-4.2 [facility] Urea nitrogen/Creatinine [Mass ratio] 7.4 mg/mg 10-20 [facility] - CoagulationOrde red By: Shon Quintero on 04-25-2023 PT Coag (PPP) [Time] 17.0 s 11.7-14.9 [facility] - Hematology and Cell countsOrdered By: ED PROVIDER on 04-25-2023 Erythrocyte distribution width (RBC) [Entitic vol] 56.5 fL 35.1-43.9 [facility] Erythrocyte distribution width (RBC) [Ratio] 21.6 % 11.6-14.6 [facility] Immature granulocytes/100 WBC (Bld) 0.300 % 0.0-0.9 [facility] Comment on above: IG% - Immature Granu locytes (promyelocytes, myelocytes and metamyelocytes) > 1% indicates that a LEFT SHIFT is Present. MCH (RBC) [Entitic mass] 22.7 pg 27.0-32.0 [facility] Nucleated RBC/100 WBC (Bld) [Ratio] 0 % 0-5 [facility] MCHC Auto (RBC) [Mass/Vol]Or dered By: ED PROVIDER on 04-25-2023 MCHC (RBC) [Mass/Vol] 30.3 g/dL 32-[address] [facility] Mucus LM Ql (Urine sed)Order ed By: Shon Quintero on 04-25-2023 Mucus Ql (Urine sed) 0 SEEN /hpf [facility] Nitrite Test strip Ql (U)Ord ered By: Shon Quintero on 04-25-2023 Nitrite Ql (U) Negative Negative [facility] No Panel InformationOrdered By: ED PROVIDER on 04-25-2023 Estimated Creatinine Clearance Calc 57.26 ml/min [facility] Estimated GFR (MDRD) Amer 81 mL/min >60 [facility] Comment on above: GFR Calc Estimated GFR (MDRD) Non-Af Amer 67 mL/min >60 [facility] Comment on above: Non- GFR Calc Platelets bldOrdered By: ED PROVIDER on 04-25-2023 Platelets (Bld) [#/Vol] 81 10*3/uL 150-450 [facility] Protein Test strip Ql (U)Ord ered By: Shon Quintero on 04-25-2023 Protein Ql (U) 30 mg/dl Negative [facility] Serum or plasma albumin latrice urement (mass/volume)Ordered By: ED PROVIDER on 04-25-2023 Albumin [Mass/Vol] 3.0 g/dL 3.2-5.0 [facility] Serum or plasma albumin/glob ulin mass ratioOrdered By: ED PROVIDER on 04-25-2023 Albumin/Globulin [Mass ratio] 0.7 {ratio} 0.9-2.4 [facility] Serum or plasma calcium latrice urement (mass/volume)Ordered By: ED PROVIDER on 04-25-2023 Calcium [Mass/Vol] 8.9 mg/dL 8.5-10.1 [facility] Serum or plasma creatinine m easurement (mass/volume)Ordered By: ED PROVIDER on 04-25-2023 Creatinine [Mass/Vol] 0.94 mg/dL 0.55-1.[address] [facility] Comment on above: The validity of the calculated GFR & GFRAA in patients over 70 years has not been determined. Clinical correlation is essential. Serum or plasma urea nitroge n measurement (mass/volume)Ordered By: ED PROVIDER on 04-25-2023 Urea nitrogen [Mass/Vol] 7 mg/dL 7-18 [facility] Squamous epithelial cells de tection in urine sediment by light microscopyOrdered By: Shon Quintero on 04-25-2023 Epithelial cells.squamous LM Ql (Urine sed) 5-10 SEEN /hpf 5-10 [facility] Thin prep Papanicolaou smear with manual screeningOrdered By: ED PROVIDER on 04-25-2023 Thin prep Papanicolaou smear with manual screening 219 U/L 15-37 [facility] Comment on above: Moderate Hemolysis, Result may be falsely increased. Thin prep Papanicolaou smear with manual screening 4 5-15 [facility] Urine blood detectionOrdered By: Shon Quintero on 04-25-2023 RBC Ql (U) 50 /ul Negative [facility] RBC Ql (U) 0-5 SEEN /hpf 0-5 [facility] Urine clarityOrdered By: Shon Quintero on 04-25-2023 Clarity (U) Clear Clear [facility] Urine color determinationOrd ered By: Shon Quintero on 04-25-2023 Color (U) Yellow Yellow [facility] Urine glucose detectionOrder ed By: Shon Quintero on 04-25-2023 Glucose Ql (U) Normal mg/dl Normal [facility] Urine leukocyte esterase det ection by dipstickOrdered By: Shon Quintero on 04-25-2023 Leukocyte esterase Test strip Ql (U) 25 /ul Negative [facility] Urine pHOrdered By: Shon bender on 04-25-2023 pH (U) 7.0 [pH] 5.0 - 8.0 [facility] Urine sediment bacteria coun t by microscopy (number/high power field)Ordered By: Shon Quintero on 04-25-2023 Bacteria LM.HPF (Urine sed) [#/Area] 1 /[HPF] None Seen [facility] Urine specific gravity measu rementOrdered By: Shon Quintero on 04-25-2023 Specific gravity (U) [Rel density] 1.020 1.002-1.030 [facility] Urobilinogen Auto test strip Ql (U)Ordered By: Shon Quintero on 04-25-2023 Urobilinogen Ql (U) 4 mg/dl Normal [facility] JEANETH SCREENINGon 01-24-2023 [facility] Influenza virus A and B RNA and SARS-CoV-2 (COVID-19) N gene panel PHYLLIS+probe (Resp)on 09-30-2022 FLUAV RNA PHYLLIS+probe Ql (Unsp spec) Negative Negative for Influenza A by RT-PCR [facility] FLUBV RNA PHYLLIS+probe Ql (Unsp spec) Negative Negative for Influenza B by RT-PCR [facility] SARS-CoV-2 (COVID-19) RNA PHYLLIS+probe Ql (Resp) SARS-CoV-2 (Agent of COVID-19) Not Detected by RT-PCR or equivalent method. Not Detected [facility] Absolute lymphocyte counton 08-27-2022 Lymphocytes Auto (Unsp spec) [#/Vol] 2.01 10*3/uL 0.83-4.51 [facility] Work Phone: Basophil percentageon 2021 Ammonia (P) [Moles/Vol] 56.0 umol/L 11-32 [facility] Work Phone: Basophil percentage < 0.2 AI 0.0-0.9 [facility] Work Phone: Basophils/100 WBC (Bld) 0.7 % 0-1 [facility] Work Phone: Bilirubin [Mass/Vol] 0.90 mg/dL 0.20-1.00 [facility] Work Phone: Comment on above: For patients on eltr ombopag therapy, use of Dimension [place] TBIL is not recommended. Chloride [Moles/Vol] 113 mmol/L 98-107 [facility] Work Phone: Eosinophils/100 WBC (Bld) 2.7 % 0-5 [facility] Work Phone: Glucose [Mass/Vol] 87 mg/dL 74-106 [facility] Work Phone: Neutrophils (Bld) [#/Vol] 3.2 10*3/uL 2.0-7.7 [facility] Work Phone: Neutrophils/100 WBC (Bld) 54.0 % 47-70 [facility] Work Phone: Potassium [Moles/Vol] 3.8 mmol/L 3.5-5.[address] [facility] Work Phone: Protein [Mass/Vol] 7.9 g/dL 6.4-8.2 [facility] Work Phone: Sodium [Moles/Vol] 140 mmol/L 136-145 [facility] Work Phone: WBC (Bld) [#/Vol] 6.0 10*3/uL 4.4-11.0 [facility] Work Phone: Blood erythrocytes count (nu mber/volume)on 08-27-2022 RBC (Bld) [#/Vol] 4.03 10*6/uL 4.2-5.4 [facility] Work Phone: Blood hemoglobin measurement (mass/volume)on 08-27-2022 Hemoglobin (Bld) [Mass/Vol] 9.9 g/dL 12.0-15.0 [facility] Work Phone: Blood lymphocytes/100 leukoc yteson 08-27-2022 Lymphocytes/100 WBC (Bld) 33.7 % 19-41 [facility] Work Phone: Blood manual differential co mment interpretation (narrative result)on 08-27-2022 Manual differential comment Eliezer (Bld) [Interp] SCANNED [facility] Work Phone: Comment on above: THROMBOCYTOPENIA NOT ED Blood monocytes/100 leukocyt eson 08-27-2022 Monocytes/100 WBC (Bld) 8.4 % 0-10 [facility] Work Phone: Blood platelet mean volumeon 08-27-2022 Platelet mean volume (Bld) [Entitic vol] TNP [facility] Work Phone: Comment on above: Test not performed Determination of erythrocyte mean corpuscular volume (MCV)on 08-27-2022 MCV (RBC) [Entitic vol] 79.7 fL 81-99 [facility] Work Phone: Erythrocyte sedimentation ra gabby 08-27-2022 ESR (Bld) [Velocity] 51 mm/h 0-30 [facility] Work Phone: HIV 1 and HIV-2 antibody ass ay with HIV-1 p24 antigen detectionon 08-27-2022 HIV 1+2 Ab+HIV1 p24 Ag IA Ql Non-Reactive Nonreactive [facility] Work Phone: Hematocrit Auto (Bld) [Volum e fraction]on 08-27-2022 Hematocrit (Bld) [Volume fraction] 32.1 % 37-47 [facility] Work Phone: INR in Blood by Coagulation assayon 08-27-2022 INR Coag (Bld) [Relative time] 1.5 {INR} [facility] Work Phone: Laboratory - Chemistry and C hemistry - challengeon 08-27-2022 ALP [Catalytic activity/Vol] 151 U/L 45-117 [facility] Work Phone: ALT [Catalytic activity/Vol] 69 U/L 13-56 [facility] Work Phone: CO2 [Moles/Vol] 21.0 mmol/L 21.0-32.0 [facility] Work Phone: Globulin (S) [Mass/Vol] 5.0 g/dL 2.2-4.2 [facility] Work Phone: Urea nitrogen/Creatinine [Mass ratio] 9.6 mg/mg 10-20 [facility] Work Phone: Laboratory - Coagulationon 1 10-28-2021 PT Coag (PPP) [Time] 17.5 s 11.7-14.9 [facility] Work Phone: Laboratory - Hematology and Cell countson 08-27-2022 Erythrocyte distribution width (RBC) [Entitic vol] 56.0 fL 35.1-43.9 [facility] Work Phone: Erythrocyte distribution width (RBC) [Ratio] 19.5 % 11.6-14.6 [facility] Work Phone: Immature granulocytes/100 WBC (Bld) 0.500 % 0.0-0.9 [facility] Work Phone: Comment on above: IG% - Immature Granu locytes (promyelocytes, myelocytes and metamyelocytes) > 1% indicates that a LEFT SHIFT is Present. MCH (RBC) [Entitic mass] 24.6 pg 27.0-32.0 [facility] Work Phone: Nucleated RBC/100 WBC (Bld) [Ratio] 0 % 0-5 [facility] Work Phone: MCHC Auto (RBC) [Mass/Vol]on 08-27-2022 MCHC (RBC) [Mass/Vol] 30.8 g/dL 32-[address] [facility] Work Phone: No Panel Informationon 08-27 Centromere B Antibody <0.2 AI 0.0-0.[address] [facility] Work Phone: Ceruloplasmin See comment [facility] Work Phone: Comment on above: TEST RESULT LIMITSCe ruloplasmin 17.9 Low mg/dL 19.0-39.0 ___ TESTING PERFORMED AT [facility]. ORIGINAL REPORT ON FILE IN LAB CONTAINS ADDITIONAL TEST SITE INFORMATION. Estimated GFR (MDRD) Amer 81 mL/min >60 [facility] Work Phone: Comment on above: GFR Calc Estimated GFR (MDRD) Non-Af Amer 67 mL/min >60 [facility] Work Phone: Comment on above: Non- GFR Calc Haptoglobin See comment [facility] Work Phone: Comment on above: TEST RESULT LIMITSHa ptoglobin 32 Low mg/dL 42-296 TESTING PERFORMED AT [facility]. ORIGINAL REPORT ON FILE IN LAB CONTAINS ADDITIONAL TEST SITE INFORMATION. Hepatitis A IgM Antibody See comment [facility] Work Phone: Comment on above: TEST RESULT LIMITSAc jose Hepatitis Hep A Ab, IgM Negative Negative [...] with active infection. ____ TESTING PERFORMED AT [facility]. ORIGINAL REPORT ON FILE IN LAB CONTAINS ADDITIONAL TEST SITE INFORMATION. Hepatitis B Core IgM Antibody Not Reportable [facility] Work Phone: Hepatitis C Antibody (EIA) Not Reportable [facility] Work Phone: Hepatitis C Genotype See comment [facility] Work Phone: Comment on above: TEST RESULT LIMITSHC V Genotyping Non Reflex Hepatitis C Genotype 1aPlease note: This test was developed and its performance characteristics determined by [employer]. It has not been cleared or approved by the U.S. Food and Drug Administration.The FDA has determined that such clearance or approval is not necessary. This test is used for clinical purposes. It should not be regarded as investigational or for research. ___ TESTING PERFORMED AT [facility]. ORIGINAL REPORT ON FILE IN LAB CONTAINS ADDITIONAL TEST SITE INFORMATION. COMP[employer]ITIVE INTELLIGENCE MANAGER Antibody 0.2 AI 0.0-0.9 [facility] Work Phone: Platelets bldon 08-27-2022 Platelets (Bld) [#/Vol] 70 10*3/uL 150-450 [facility] Work Phone: Serum DNA double strand anti body assay (units/volume)on 08-27-2022 DNA double strand Ab Qn (S) 3 [IU]/mL 0-9 [facility] Work Phone: Comment on above: Negative <5 Equivoca l 5 - 9 Positive >9 Serum Htania-1 antibody assay (u nits/volume)on 08-27-2022 Thania-1 extractable nuclear Ab Qn (S) <0.2 AI 0.0-0.9 [facility] Work Phone: Serum Scl-70 extractable nuc lear antibody assay (units/volume)on 08-27-2022 SCL-70 extractable nuclear Ab Qn (S) <0.2 AI 0.0-0.9 [facility] Work Phone: Serum Levin extractable nucl ear antibody detectionon 08-27-2022 Levin extractable nuclear Ab Ql (S) <0.2 AI 0.0-0.9 [facility] Work Phone: Serum classic neutrophil cyt oplasmic antibody assay (units/volume)on 08-27-2022 Neutrophil cytoplasmic Ab.classic Qn (S) See comment [facility] Work Phone: Comment on above: TEST [...] up testing of positive sera with both FL-3 and MPO-ANCA enzyme immunoassays. As many as 5% serum samples are positive only by EIA.Ref. AM J Clin Pathol 1999;111:507-513.Atypical pANCA <1:20 titer Neg:<1:20The atypical pANCA pattern has been observed in a significant percentage of patients with ulcerative colitis, primary sclerosing cholangitis and autoimmune hepatitis. ____ [facility] ORIGINAL REPORT ON FILE IN LAB CONTAINS ADDITIONAL TEST SITE INFORMATION. Serum mitochondria antibody detectionon 08-27-2022 Mitochondria Ab Ql (S) <20.0 Units 0.0-20.[address] [facility] Work Phone: Comment on above: Negative 0.0 - 20.0 Equivocal 20.1 - 24.9 Positive >24.9Mitochondrial (M2) Antibodies are found in 90-96% ofpatients with primary biliary cirrhosis.Performed at: [facility] [employer] [id number] Director: Tee Reyna PhD, Phone: [phone] Serum or plasma C reactive p rotein measurement (mass/volume)on 08-27-2022 CRP [Mass/Vol] 5.71 mg/L 0.0-3.0 [facility] Work Phone: Comment on above: C-Reactive Protein ( CRP) provides useful information for thediagnosis, therapy and monitoring of inflammatory processesand associated diseases. For the evaluation of Relative Riskfor Cardiovascular Disease, a High Sensitivity CRP (HSCRP)should be ordered. Serum or plasma actin IgG an tibody assay (units/volume)on 08-27-2022 Actin IgG Qn See comment [facility] Work Phone: Comment on above: TEST RESULT LIMITSAc tin (Smooth Muscle)Antibody 9 Units 0-19 Negative 0 - 19 Weak positive 20 - 30 Moderate to strong positive >30 Actin Antibodies are found in 52-85% of patients with autoimmune hepatitis or chronic active hepatitis and in 22% of patients with primary biliary cirrhosis. ____ TESTING PERFORMED AT [facility]. ORIGINAL REPORT ON FILE IN LAB CONTAINS ADDITIONAL TEST SITE INFORMATION. Serum or plasma albumin latrice urement (mass/volume)on 08-27-2022 Albumin [Mass/Vol] 2.9 g/dL 3.2-5.0 [facility] Work Phone: Serum or plasma albumin/glob ulin mass ratioon 08-27-2022 Albumin/Globulin [Mass ratio] 0.6 {ratio} 0.9-2.4 [facility] Work Phone: Serum or plasma amthx-0-fhuw protein tumor marker measurement (units/volume)on 08-27-2022 AFP.tumor marker Qn See comment [facility] Work Phone: Comment on above: TEST RESULT LIMITSAF P, Serum, Tumor Marker 23.2 High ng/mL 0.0-6.4[employer] Electrochemiluminescence Immunoassay (ECLIA)Values obtained with different assay methods or kits cannot be used interchangeably. Results cannot be interpreted as absolute evidence of the presence or absence of malignant disease.This test is not interpretable in females. __ [facility]. ORIGINAL REPORT ON FILE IN LAB CONTAINS ADDITIONAL TEST SITE INFORMATION. Serum or plasma angiotensin converting enzyme measurement (enzymatic activity/volume)on 08-27-2022 Angiotensin converting enzyme [Catalytic activity/Vol] See comment [facility] Work Phone: Comment on above: TEST RESULT LIMITSAn giotensin-Converting Enzyme PETERSON, Serum 72 U/L 14-82 TESTING PERFORMED AT [facility]. ORIGINAL REPORT ON FILE IN LAB CONTAINS ADDITIONAL TEST SITE INFORMATION. Serum or plasma calcium latrice urement (mass/volume)on 08-27-2022 Calcium [Mass/Vol] 9.0 mg/dL 8.5-10.1 [facility] Work Phone: Serum or plasma creatinine m easurement (mass/volume)on 08-27-2022 Creatinine [Mass/Vol] 0.94 mg/dL 0.55-1.[address] [facility] Work Phone: Comment on above: The validity of the calculated GFR & GFRAA in patients over 70 years has not been determined. Clinical correlation is essential. Serum or plasma ferritin mic surement (mass/volume)on 08-27-2022 Ferritin [Mass/Vol] 7 ng/mL 8 [facility] Work Phone: Serum or plasma hepatitis B virus surface antigen detection by immunoassayon 08-27-2022 HBV surface Ag IA Ql Not Reportable [facility] Work Phone: Serum or plasma urea nitroge n measurement (mass/volume)on 08-27-2022 Urea nitrogen [Mass/Vol] 9 mg/dL 7-18 [facility] Work Phone: Serum perinuclear neutrophil cytoplasmic antibody titer by immunofluorescenceon 08-27-2022 Neutrophil cytoplasmic Ab.perinuclear IF (S) [Titer] Not Reportable [facility] Work Phone: Thin prep Papanicolaou smear with manual screeningon 08-27-2022 Thin prep Papanicolaou smear with manual screening 112 U/L 15-37 [facility] Work Phone: Thin prep Papanicolaou smear with manual screening 6 5-15 [facility] Work Phone: Thin prep Papanicolaou smear with manual screening 172 U/L 84-246 [facility] Work Phone: Thin prep Papanicolaou smear with manual screening See comment [facility] Work Phone: Comment on above: TEST RESULT LIMITSCo pper, Serum or Plasma, 78 Low ug/dL 80-158 Detection Limit = 5 TESTING PERFORMED AT [facility]. ORIGINAL REPORT ON FILE IN LAB CONTAINS ADDITIONAL TEST SITE INFORMATION. Whole blood hemoglobin A1c/t otal hemoglobin ratio (mass fraction)on 08-27-2022 HbA1c (Bld) [Mass fraction] 5.1 % 3.8-5.6 [facility] Work Phone: Comment on above: Normal < 5.7 % Predi abetic 5.7 - 6.4 % Diabetic >or= 6.5 % Please note range changes. Absolute lymphocyte counton 05-21-2022 Lymphocytes Auto (Unsp spec) [#/Vol] 2.52 10*3/uL 0.83-4.51 [facility] Work Phone: Basophil percentageon 2021 Basophils/100 WBC (Bld) 0.6 % 0-1 [facility] Work Phone: Bilirubin [Mass/Vol] 1.00 mg/dL 0.20-1.00 [facility] Work Phone: Comment on above: For patients on eltr ombopag therapy, use of Dimension [place] TBIL is not recommended. Chloride [Moles/Vol] 110 mmol/L 98-107 [facility] Work Phone: [phone] Eosinophils/100 WBC (Bld) 2.7 % 0-5 [facility] Work Phone: Glucose [Mass/Vol] 106 mg/dL 74-106 [facility] Work Phone: Comment on above: Fasting Glucose resu lt from 100 to 125 mg/dL suggests IMPAIRED HOMEOSTASIS per A.D.A. criteria. Neutrophils (Bld) [#/Vol] 3.7 10*3/uL 2.0-7.7 [facility] Work Phone: [phone] Neutrophils/100 WBC (Bld) 52.4 % 47-70 [facility] Work Phone: Potassium [Moles/Vol] 3.9 mmol/L 3.5-5.[address] [facility] Work Phone: Protein [Mass/Vol] 7.2 g/dL 6.4-8.2 [facility] Work Phone: Sodium [Moles/Vol] 138 mmol/L 136-145 [facility] Work Phone: WBC (Bld) [#/Vol] 7.0 10*3/uL 4.4-11.0 [facility] Work Phone: Blood erythrocytes count (nu mber/volume)on 05-21-2022 RBC (Bld) [#/Vol] 3.79 10*6/uL 4.2-5.4 [facility] Work Phone: [phone] Blood hemoglobin measurement (mass/volume)on 05-21-2022 Hemoglobin (Bld) [Mass/Vol] 10.4 g/dL 12.0-15.0 [facility] Work Phone: Blood lymphocytes/100 leukoc yteson 05-21-2022 Lymphocytes/100 WBC (Bld) 35.9 % 19-41 [facility] Work Phone: [phone] Blood monocytes/100 leukocyt eson 05-21-2022 Monocytes/100 WBC (Bld) 8.3 % 0-10 [facility] Work Phone: Blood platelet mean volumeon 05-21-2022 Platelet mean volume (Bld) [Entitic vol] 10.7 fL 6.2-12.0 [facility] Work Phone: Determination of erythrocyte mean corpuscular volume (MCV)on 05-21-2022 MCV (RBC) [Entitic vol] 86.8 fL 81-99 [facility] Work Phone: Hematocrit Auto (Bld) [Volum e fraction]on 05-21-2022 Hematocrit (Bld) [Volume fraction] 32.9 % 37-47 [facility] Work Phone: Laboratory - Chemistry and C hemistry - challengeon 05-21-2022 ALP [Catalytic activity/Vol] 150 U/L 45-117 [facility] Work Phone: ALT [Catalytic activity/Vol] 83 U/L 13-56 [facility] Work Phone: CO2 [Moles/Vol] 25.0 mmol/L 21.0-32.0 [facility] Work Phone: Globulin (S) [Mass/Vol] 4.8 g/dL 2.2-4.2 [facility] Work Phone: Urea nitrogen/Creatinine [Mass ratio] 9.5 mg/mg 10-20 [facility] Work Phone: Laboratory - Hematology and Cell countson 05-21-2022 Erythrocyte distribution width (RBC) [Entitic vol] 62.4 fL 35.1-43.9 [facility] Work Phone: Erythrocyte distribution width (RBC) [Ratio] 19.5 % 11.6-14.6 [facility] Work Phone: Immature granulocytes/100 WBC (Bld) 0.100 % 0.0-0.9 [facility] Work Phone: Comment on above: IG% - Immature Granu locytes (promyelocytes, myelocytes and metamyelocytes) > 1% indicates that a LEFT SHIFT is Present. MCH (RBC) [Entitic mass] 27.4 pg 27.0-32.0 [facility] Work Phone: Nucleated RBC/100 WBC (Bld) [Ratio] 0 % 0-5 [facility] Work Phone: MCHC Auto (RBC) [Mass/Vol]on 05-21-2022 MCHC (RBC) [Mass/Vol] 31.6 g/dL 32-[address] [facility] Work Phone: No Panel Informationon 05-21 Estimated Creatinine Clearance Calc 64.78 ml/min [facility] Work Phone: Estimated GFR (MDRD) Amer 93 mL/min >60 [facility] Work Phone: Comment on above: GFR Calc Estimated GFR (MDRD) Non-Af Amer 77 mL/min >60 [facility] Work Phone: Comment on above: Non- GFR Calc Platelets bldon 05-21-2022 Platelets (Bld) [#/Vol] 74 10*3/uL 150-450 [facility] Work Phone: Serum or plasma albumin latrice urement (mass/volume)on 05-21-2022 Albumin [Mass/Vol] 2.4 g/dL 3.2-5.0 [facility] Work Phone: Serum or plasma albumin/glob ulin mass ratioon 05-21-2022 Albumin/Globulin [Mass ratio] 0.5 {ratio} 0.9-2.4 [facility] Work Phone: Serum or plasma calcium latrice urement (mass/volume)on 05-21-2022 Calcium [Mass/Vol] 8.7 mg/dL 8.5-10.1 [facility] Work Phone: Serum or plasma creatinine m easurement (mass/volume)on 05-21-2022 Creatinine [Mass/Vol] 0.84 mg/dL 0.55-1.02 [facility] Work Phone: Comment on above: The validity of the calculated GFR & GFRAA in patients over 70 years has not been determined. Clinical correlation is essential. Serum or plasma urea nitroge n measurement (mass/volume)on 05-21-2022 Urea nitrogen [Mass/Vol] 8 mg/dL 7-18 [facility] Work Phone: Thin prep Papanicolaou smear with manual screeningon 05-21-2022 Thin prep Papanicolaou smear with manual screening 240 U/L 15-37 [facility] Work Phone: Thin prep Papanicolaou smear with manual screening 3 5-15 [facility] Work Phone: Basophil percentageon 2021 Ammonia (P) [Moles/Vol] 61.0 umol/L 11-32 [facility] Work Phone: Absolute lymphocyte counton 05-19-2022 Lymphocytes Auto (Unsp spec) [#/Vol] 2.67 10*3/uL 0.83-4.51 [facility] Work Phone: Basophil percentageon 2021 Basophil percentage 3.1 mg/dL 2.5-4.9 [facility]: Basophil percentage 0-5 SEEN /hpf 0-5 [facility] Work Phone: Ammonia (P) [Moles/Vol] 83.0 umol/L 11-32 [facility] Work Phone: Basophils/100 WBC (Bld) 0.6 % 0-1 [facility] Work Phone: Bilirubin [Mass/Vol] 1.00 mg/dL 0.20-1.00 [facility] Work Phone: Comment on above: For patients on eltr ombopag therapy, use of Dimension [place] TBIL is not recommended. Chloride [Moles/Vol] 112 mmol/L 98-107 [facility] Work Phone: Eosinophils/100 WBC (Bld) 3.1 % 0-5 [facility] Work Phone: Glucose [Mass/Vol] 108 mg/dL 74-106 [facility] Work Phone: Comment on above: Fasting Glucose resu lt from 100 to 125 mg/dL suggests IMPAIRED HOMEOSTASIS per A.D.A. criteria. Neutrophils (Bld) [#/Vol] 4.2 10*3/uL 2.0-7.7 [facility] Work Phone: Neutrophils/100 WBC (Bld) 53.5 % 47-70 [facility] Work Phone: Potassium [Moles/Vol] 3.6 mmol/L 3.5-5.[address] [facility] Work Phone: [phone] Protein [Mass/Vol] 7.9 g/dL 6.4-8.2 [facility] Work Phone: Sodium [Moles/Vol] 140 mmol/L 136-145 [facility] Work Phone: WBC (Bld) [#/Vol] 7.8 10*3/uL 4.4-11.0 [facility] Work Phone: [phone] Bilirubin Test strip Ql (U)o n 05-19-2022 Bilirubin Ql (U) 1 mg/dL Negative [facility] Work Phone: Comment on above: COLOR OF URINE MAY A FFECT DIPSTICK RESULTS. Blood erythrocytes count (nu mber/volume)on 05-19-2022 RBC (Bld) [#/Vol] 4.06 10*6/uL 4.2-5.4 [facility] Work Phone: Blood hemoglobin measurement (mass/volume)on 05-19-2022 Hemoglobin (Bld) [Mass/Vol] 10.7 g/dL 12.0-15.0 [facility] Work Phone: Blood lymphocytes/100 leukoc yteson 05-19-2022 Lymphocytes/100 WBC (Bld) 34.4 % 19-41 [facility] Work Phone: Blood monocytes/100 leukocyt eson 05-19-2022 Monocytes/100 WBC (Bld) 8.1 % 0-10 [facility] Work Phone: Blood platelet mean volumeon 05-19-2022 Platelet mean volume (Bld) [Entitic vol] 11.4 fL 6.2-12.0 [facility] Work Phone: Calcium oxalate crystals det ection in urine sediment by light microscopyon 05-19-2022 Calcium oxalate crystals LM Ql (Urine sed) 1+ /hpf [facility] Work Phone: Determination of erythrocyte mean corpuscular volume (MCV)on 05-19-2022 MCV (RBC) [Entitic vol] 85.2 fL 81-99 [facility] Work Phone: Direct bilirubinon 2 Bilirubin.direct [Mass/Vol] 0.49 mg/dL 0.00-0.30 [facility] Work Phone: Hematocrit Auto (Bld) [Volum e fraction]on 05-19-2022 Hematocrit (Bld) [Volume fraction] 34.6 % 37-47 [facility] Work Phone: Hyaline casts LM.LPF (Urine sed) [#/Area]on 05-19-2022 Hyaline casts (Urine sed) [#/Area] 0 /[LPF] 0-5 [facility] Work Phone: INR in Blood by Coagulation assayon 05-19-2022 INR Coag (Bld) [Relative time] 1.5 {INR} [facility] Work Phone: Ketones Test strip Ql (U)on 05-19-2022 Ketones Ql (U) 5 mg/dl Negative [facility] Work Phone: Laboratory - Chemistry and C hemistry - challengeon 05-19-2022 Magnesium [Mass/Vol] 1.8 mg/dL 1.6-2.6 [facility] Work Phone: ALP [Catalytic activity/Vol] 144 U/L 45-117 [facility] Work Phone: ALT [Catalytic activity/Vol] 63 U/L 13-56 [facility] Work Phone: CO2 [Moles/Vol] 20.0 mmol/L 21.0-32.0 [facility] Work Phone: Globulin (S) [Mass/Vol] 5.2 g/dL 2.2-4.2 [facility] Work Phone: Urea nitrogen/Creatinine [Mass ratio] 10.7 mg/mg 10-20 [facility] Work Phone: Laboratory - Coagulationon 0 05-19-2022 PT Coag (PPP) [Time] 17.5 s 11.7-14.9 [facility] Work Phone: Laboratory - Drug toxicology on 05-19-2022 Amphetamines Ql (U) Positive <1000 ng/mL [facility] Work Phone: Benzodiazepines Ql (U) Negative < 200 ng/mL [facility] Work Phone: Cannabinoids Screen Ql (U) Positive < 50 ng/mL [facility] Work Phone: Cocaine Ql (U) Negative < 300 ng/mL [facility] Work Phone: [phone] Opiates Ql (U) Negative < 300 ng/mL [facility] Work Phone: Laboratory - Hematology and Cell countson 05-19-2022 Erythrocyte distribution width (RBC) [Entitic vol] 60.3 fL 35.1-43.9 [facility] Work Phone: Erythrocyte distribution width (RBC) [Ratio] 19.5 % 11.6-14.6 [facility] Work Phone: Immature granulocytes/100 WBC (Bld) 0.300 % 0.0-0.9 [facility] Work Phone: Comment on above: IG% - Immature Granu locytes (promyelocytes, myelocytes and metamyelocytes) > 1% indicates that a LEFT SHIFT is Present. MCH (RBC) [Entitic mass] 26.4 pg 27.0-32.0 [facility] Work Phone: Nucleated RBC/100 WBC (Bld) [Ratio] 0 % 0-5 [facility] Work Phone: Laboratory - Microbiology an d Antimicrobial susceptibilityon 05-19-2022 SARS-CoV-2 (COVID-19) RNA PHYLLIS+probe Ql (Unsp spec) Not detected Not Detect [facility] Work Phone: Comment on above: Normal [...] 05-19-2022 MCHC (RBC) [Mass/Vol] 30.9 g/dL 32-[address] [facility] Work Phone: Mucus LM Ql (Urine sed)on Mucus Ql (Urine sed) 0 SEEN /hpf [facility] Work Phone: Nitrite Test strip Ql (U)on 05-19-2022 Nitrite Ql (U) Negative Negative [facility] Work Phone: No Panel Informationon 05-19 MDMA (Ecstasy) Screen Positive < 500 ng/mL [facility] Work Phone: Urine Barbiturates Screen Negative < 200 ng/mL [facility] Work Phone: Urine Drug Screen Comment [facility] Work Phone: Comment on above: CONFIRMATORY [...] Methadone Screen Negative < 300 ng/mL [facility] Work Phone: Estimated Creatinine Clearance Calc 44.97 ml/min [facility] Work Phone: Estimated GFR (MDRD) Amer 61 mL/min >60 [facility] Work Phone: Comment on above: GFR Calc Estimated GFR (MDRD) Non-Af Amer 50 mL/min >60 [facility] Work Phone: Comment on above: Non- GFR Calc Platelets bldon 05-19-2022 Platelets (Bld) [#/Vol] 72 10*3/uL 150-450 [facility] Work Phone: Protein Test strip Ql (U)on 05-19-2022 Protein Ql (U) 30 mg/dl Negative [facility] Work Phone: Serum or plasma albumin latrice urement (mass/volume)on 05-19-2022 Albumin [Mass/Vol] 2.7 g/dL 3.2-5.0 [facility] Work Phone: Serum or plasma calcium latrice urement (mass/volume)on 05-19-2022 Calcium [Mass/Vol] 9.2 mg/dL 8.5-10.1 [facility] Work Phone: Serum or plasma creatinine m easurement (mass/volume)on 05-19-2022 Creatinine [Mass/Vol] 1.21 mg/dL 0.55-1.[address] [facility] Work Phone: Comment on above: The validity of the calculated GFR & GFRAA in patients over 70 years has not been determined. Clinical correlation is essential. Serum or plasma urea nitroge n measurement (mass/volume)on 05-19-2022 Urea nitrogen [Mass/Vol] 13 mg/dL 7-18 [facility] Work Phone: Serum procalcitonin measurem enton 05-19-2022 Procalcitonin [Mass/Vol] 0.06 ng/mL 0.00-0.09 [facility] Work Phone: Comment on above: A [...] Ql (Urine sed) 0-5 SEEN /hpf 5-10 [facility] Work Phone: Thin prep Papanicolaou smear with manual screeningon 05-19-2022 Thin prep Papanicolaou smear with manual screening 140 U/L 15-37 [facility] Work Phone: Thin prep Papanicolaou smear with manual screening 8 5-15 [facility] Work Phone: Urine blood detectionon 04-27 RBC Ql (U) 250 /ul Negative [facility] Work Phone: RBC Ql (U) > 100 SEEN /hpf 0-5 [facility] Work Phone: Urine clarityon 05-19-2022 Clarity (U) Cloudy Clear [facility] Work Phone: Urine color determinationon 05-19-2022 Color (U) Mike Yellow [facility] Work Phone: Urine glucose detectionon Glucose Ql (U) Normal mg/dl Normal [facility] Work Phone: Urine leukocyte esterase det ection by dipstickon 05-19-2022 Leukocyte esterase Test strip Ql (U) 25 /ul Negative [facility] Work Phone: Urine pHon 05-19-2022 pH (U) 6.0 [pH] 5.0 - 8.0 [facility] Work Phone: Urine phencyclidine (PCP) de tectionon 05-19-2022 Phencyclidine Ql (U) Negative < 25 ng/mL [facility] Work Phone: Urine sediment bacteria coun t by microscopy (number/high power field)on 05-19-2022 Bacteria LM.HPF (Urine sed) [#/Area] 0 /[HPF] None Seen [facility] Work Phone: Urine specific gravity measu rementon 05-19-2022 Specific gravity (U) [Rel density] 1.025 1.002-1.030 [facility] Work Phone: Urobilinogen Auto test strip Ql (U)on 05-19-2022 Urobilinogen Ql (U) 4 mg/dl Normal [facility] Work Phone: CBCon 08-04-2018 Erythrocyte distribution width Auto Ratio (RBC) 20.9 % High 11.5-15.0 [facility] Comment on above: Performed By: #### C NATALYA, PT ####[facility] [address] [place] [address] Hematocrit Auto Volume Fraction (Bld) 41.5 % Normal 36.0-46.0 [facility] Comment on above: Performed By: #### C NATALYA, PT ####[facility] [address] [place] [address] Hemoglobin mass conc (Bld) 13.0 g/dL Normal 11.5-15.5 [facility] Comment on above: Performed By: #### C NATALYA, PT ####[facility] [address] [place] [address] MCH Auto Entitic mass (RBC) 25.6 pG Low 26.0-34.0 [facility] Comment on above: Performed By: #### C NATALYA, PT ####[facility] [address] [place] [address] MCHC Auto mass conc (RBC) 31.3 g/dL Normal 30.5-36.0 [facility] Comment on above: Performed By: #### C NATALYA, PT ####[facility] [address] [place] [address] MCV Auto Entitic volume (RBC) 81.9 fL Normal 80.0-100.0 [facility] Comment on above: Performed By: #### C NATALYA, PT ####[place] [address] Platelet mean volume Auto Entitic volume (Bld) 11.2 fL Normal 9.0-12.7 [facility] Comment on above: Performed By: #### C NATALYA, PT ####[facility] [address] [place] [address] Platelets Auto #/vol (Bld) 227 10*3/uL Normal 150-400 [facility] Comment on above: Performed By: #### C BC, PT ####[facility] [address] [place] [phone] RBC Auto #/vol (Bld) 5.07 10*6/uL Normal 3.90-5.20 [facility] Comment on above: Performed By: #### C BC, PT ####[facility] [address] [place] [phone] WBC Auto #/vol (Bld) 7.53 10*3/uL Normal 3.70-11.00 [facility] Comment on above: Performed By: #### C BC, PT ####[facility] [address] [place] [phone] CT BIOPSY LIVERon 08-04-2018 CT BIOPSY LIVER * * *Final Report* * *DATE OF EXAM: Aug 04 2018 10:45AM [facility] 2017 - CT BIOPSY LIVER / REASON: [...] STEVENSON MD on Aug 04 2018 1:18PM [id number] [facility] PT EDon 08-04-2018 PT ED HNO ID: [id number]: Wendy StreetRnLONI Nicholeervice: NursingAuthor Type: Registered NurseType: Patient EducationFiled: 08/04/2018 12:25 PMNote Text:POST OP LEARNING RESPONSEINSTRUCTION PROVIDED TO: Patient and family memberMETHOD OF INSTRUCTION: Written instruction - handoutsVerbal instructionPATIENT / FAMILY RESPONSE: Information received as demonstrated byinterest and questionsFOLLOW-UP PLAN: Patient instructed to call with any further issuesSUPPLEMENTAL MATERIAL: NoneREFERRAL (RECOMMENDATION): NoneElectronically Signed By: Wendy Kuo RN In Department: [facility] RADIOLOGY [facility] PT ED HNO ID: [id number]: Anderson StreetRn) LONI Uribeervice: NursingAuthor Type: Registered NurseType: Patient EducationFiled: 08/04/2018 9:32 AMNote Text:PRE OP LEARNING ASSESSMENTPROCEDURE/WILMAR AUGUST: SURGERY: needle biopsy of liverREADINESS TO LEARNCOGNITIVE ABILITY: Alert and orientedMOTIVATION TO LEARN: EagerFAMILY SUPPORT: High - Very involved in pt carePATIENT LEARNS BEST BY: Written Instruction - Hand-outsVerbal InstructionFACTORS AFFECTING LEARNING: NonePHYSICAL LIMITATIONS AFFECTING LEARNING: NoneElectronically Signed By: Anderson Uribe RN In Department[facility] Protimeon 08-04-2018 INR Coag RelTime (Bld) 1.1 {INR} Normal 0.9-1.3 [facility] Comment on above: Result Comment: Roma min K Antagonist (VKA) Therapeutic Range: INR 2 to 3 (Target INR of 2.5)Note: For patients treated with VKA drugs, such as warfarin, the [place] [employer] 2012 Guideline recommends [...] al. Chest 2012, 141:7S-47SNishimura RA, et al. [facility] 2017, 70: 252-289 Performed By: #### C BC, PT ####[facility] [phone] PT Sec 11.3 sec Normal 9.7-13.0 [facility] Comment on above: Performed By: #### C BC, PT ####[facility] [address] [place] [phone] SURGICAL PATHOLOGYon 018 SURGICAL PATHOLOGY [facility]: [id number] Physician: JAMES STEVENSON MD FINAL DIAGNOSISLiver, random [...] formalin in one cassette.Gross examination performed at [facility], [address] [place] [address] [id number] 08/04/2018 3:15:16 PMPatient ID #: [id number] of Report: 08/08/2018Date of Procedure: 08/04/2018Date of Receipt: 08/04/2018Submitted by: JAMES STEVENOSN MDLocation: MERADDiagnostic interpretation performed at [address] [address]. [facility] Comment on above: Performed By: #### P ATHS ####[facility] [address] [phone] HOSPon 07-25-2018 HOSP Patient:Carolina Hightower TMRN: Height:5' [...] LowHEMA* 41.5 % 08/04/2018 46.0 36.0Progress Notes ([facility]Macie Acevedo RN APRN.MONUMENTAL STONEMASON 07/19/2018 11:53 AM SignedPlease call the patient [...] has been scheduled with Macie Acevedo for Uaebjl31/3/18 @ 9:40am, she confirmed this date and time.Love Stokes PsrProgress Notes ([facility]):Mervin Ambrocio APRN.CNP 07/14/2018 1:26 [...] a day.She wasreferred to Dr. Garcia in [place]. has hepatitis C genotype 1A. completeblood count showed slight anemia with elevated TIBC levels. Normal thyroidfunction, elevated glucose with a hemoglobin A1c of 6.0. she has had aultrasound of the right upper quadrant in the past that showed fatty liverdisease. it looks like she will be getting a CT-guided liver biopsy in [facility] for this hepatitis workup. With follow-up [...] 30.7Abs Lymph 1.00 - 4.00 k/uL 4.04 (H)Stevens% % 9.9Abs Stevens <0.87 k/uL 1.30 (H)Eosin% % 1.8Abs Eosin [...] her a handout for diabetes diet.- HGB [id number] in 3 months with labs prior.Janet Craig APRN.CNP 07/14/2018 1:[address] SignedPlease schedule your CT guided biopsy of the liver Normal [facility] Culture, urine Bacteria identified Cx Nom (U) Mixed Gram Pos & Gram Neg Org [facility] Work Phone: Laboratory - Microbiology an d Antimicrobial susceptibility Respiratory pathogens DNA and RNA 12b panel PHYLLIS+probe (Unsp spec) [facility] Work Phone: No Panel Information Respiratory Panel (PCR) [facility] Work Phone: Vital Signs Date Time Vital Sign Value Performing Clinician Facility 07-25-2025 13:25-0400 Body height 157.48 cm Zebulun Beam [employer] Work Phone: 1(775)601-370626 [place] [address] 07-25-2025 13:25-0400 Body mass index (BMI) [Ratio] 38.2 kg/m2 Zebulun Beam [employer] Work Phone: 0(884)207-089726 [place] [address] 07-25-2025 13:25-0400 Body weight 94.91 kg Zebulun Beam S[employer]IOR PROFESSIONAL SERVICES CONSULT[facility] Work Phone: 8(698)098-999902 [place] [address] 07-25-2025 13:25-0400 Body weight 94.8 kg Zebulun Beam S[employer]IOR PROFESSIONAL SERVICES CONSULTANT-C Work Phone: 4(269)816-859138 [address] 07-25-2025 13:25-0400 Diastolic blood pressure 72 mm[Hg] Zebulun Beam S[employer]IOR PROFESSIONAL SERVICES CONSULTANT[facility]C Work Phone: 6(981)375-858026 [place] [address] 07-25-2025 13:25-0400 Heart rate 72 /min Zebulun Beam S[employer]IOR PROFESSIONAL SERVICES CONSULTANT[facility]C Work Phone: 8(976)110-433902 [place] [address] 07-25-2025 13:25-0400 SaO2% (BldA) [Mass fraction] 97 % Zebulun Beam S[employer]IOR PROFESSIONAL SERVICES CONSULTANT-C Work Phone: 5(960)485-007926 [place] [address] 07-25-2025 13:25-0400 Systolic blood pressure 113 mm[Hg] Zebulun Beam S[employer]IOR PROFESSIONAL SERVICES CONSULTANT-C Work Phone: 1(781)364-595926 [place] [address] 07-15-2025 16:12-0400 Body temperature 97.6 [degF] Zebulun Beam S[employer]IOR PROFESSIONAL SERVICES CONSULTANT-C Work Phone: 6(593)457-686602 [place] [address] 07-15-2025 16:12-0400 Diastolic blood pressure 70 mm[Hg] Zebulun Beam S[employer]IOR PROFESSIONAL SERVICES CONSULTANT-C Work Phone: 9(382)283-519038 [address] 07-15-2025 16:12-0400 Heart rate 86 /min Zebulun Beam SENIOR PROFESSIONAL SERVICES CONSULTANT-C Work Phone: 4(133)229-372902 [place] [address] 07-15-2025 16:12-0400 Respiratory rate 18 /min Zebulun Beam S[employer]IOR PROFESSIONAL SERVICES CONSULTANT-C Work Phone: 7(277)971-765102 [place] [address] 07-15-2025 16:12-0400 SaO2% (BldA) [Mass fraction] 100 % Zebulun Beam S[employer]IOR PROFESSIONAL SERVICES CONSULTANT-C Work Phone: 3(953)133-398002 [place] [address] 07-15-2025 16:12-0400 Systolic blood pressure 115 mm[Hg] Zebulun Beam S[employer]IOR PROFESSIONAL SERVICES CONSULTANT-C Work Phone: 6(821)956-683202 [place] [address] 07-15-2025 14:34-0400 Body height 157.48 cm Zebulun Beam S[employer]IOR PROFESSIONAL SERVICES CONSULTANT-C Work Phone: 9(530)221-257602 [place] [address] 07-15-2025 14:34-0400 Body mass index (BMI) [Ratio] 35.9 kg/m2 Zebulun Beam S[employer]IOR PROFESSIONAL SERVICES CONSULTANT-C Work Phone: 4(484)752-596602 [place] [address] 07-15-2025 14:34-0400 Body weight 89.08 kg Zebulun Beam S[employer]IOR PROFESSIONAL SERVICES CONSULTANT-C Work Phone: 1(276)468-249602 [place] [address] 07-11-2025 12:23-0400 Body temperature 97.9 [degF] Zebulun Beam SENIOR PROFESSIONAL SERVICES CONSULTANT-C Work Phone: 0(312)844-077702 [place] [address] 07-11-2025 12:23-0400 Diastolic blood pressure 77 mm[Hg] Zebulun Beam SENIOR PROFESSIONAL SERVICES CONSULTANT-C Work Phone: 0(054)093-591802 [place] [address] 07-11-2025 12:23-0400 Heart rate 81 /min Zebulun Beam SENIOR PROFESSIONAL SERVICES CONSULTANT-C Work Phone: 5(069)678-292502 [place] [address] 07-11-2025 12:23-0400 Respiratory rate 16 /min Zebulun Beam S[employer]IOR PROFESSIONAL SERVICES CONSULTANT-C Work Phone: 5(824)135-134102 [place] [address] 07-11-2025 12:23-0400 SaO2% (BldA) [Mass fraction] 99 % Zebulun Beam SENIOR PROFESSIONAL SERVICES CONSULTANT-C Work Phone: 4(003)479-383202 [place] [address] 07-11-2025 12:23-0400 Systolic blood pressure 124 mm[Hg] Zebulun Beam SENIOR PROFESSIONAL SERVICES CONSULTANT-C Work Phone: 2(083)082-796602 [place] [address] 07-11-2025 08:41-0400 Body mass index (BMI) [Ratio] 35 kg/m2 Zebulun Beam SENIOR PROFESSIONAL SERVICES CONSULTANT-C Work Phone: 7(756)910-196702 [place] [address] 07-11-2025 08:41-0400 Body weight 86.9 kg Zebulun Beam SENIOR PROFESSIONAL SERVICES CONSULTANT-C Work Phone: 5(871)526-928502 [place] [address] 05-15-2025 15:38-0400 Body height 157.48 cm [facility] Work Phone: 5(509)354-748302 [place] [address] 05-15-2025 15:38-0400 Body mass index (BMI) [Ratio] 33.5 kg/m2 [facility] Work Phone: 9(445)409-868702 [place] [address] 05-15-2025 15:38-0400 Body weight 83 kg [facility] Work Phone: 7(995)326-780702 [place] [address] 05-15-2025 15:38-0400 Diastolic blood pressure 76 mm[Hg] [facility] Work Phone: 8(474)260-550402 [place] [address] 05-15-2025 15:38-0400 Heart rate 98 /min [facility] Work Phone: 4(614)203-717702 [place] [address] 05-15-2025 15:38-0400 SaO2% (BldA) [Mass fraction] 99 % [facility] Work Phone: 8(006)649-272402 [place] [address] 05-15-2025 15:38-0400 Systolic blood pressure 137 mm[Hg] [facility] Work Phone: 2(002)457-741702 [place] [address] 03-15-2025 13:45-0400 Body temperature 97.5 [degF] [facility] Work Phone: 0(408)085-686102 [place] [address] 03-15-2025 13:45-0400 Diastolic blood pressure 60 mm[Hg] [facility] Work Phone: 3(264)612-075302 [place] [address] 03-15-2025 13:45-0400 Heart rate 58 /min [facility] Work Phone: 1(957)159-804502 [place] [address] 03-15-2025 13:45-0400 Respiratory rate 16 /min [facility] Work Phone: 9(926)254-755402 [place] [address] 03-15-2025 13:45-0400 SaO2% (BldA) [Mass fraction] 96 % [facility] Work Phone: 4(022)949-093102 [place] [address] 03-15-2025 13:45-0400 Systolic blood pressure 100 mm[Hg] [facility] Work Phone: 0(184)256-903302 [place] [address] 03-15-2025 11:50-0400 Body height 157.48 cm [facility] Work Phone: 5(163)182-872102 [place] [address] 03-15-2025 11:50-0400 Body mass index (BMI) [Ratio] 33.5 kg/m2 [facility] Work Phone: 1(605)873-068602 [place] [address] 03-15-2025 11:50-0400 Body weight 83.2 kg [facility] Work Phone: 7(147)700-322202 [place] [address] 02-26-2025 21:40-0400 Body temperature 97.9 [degF] [facility] Work Phone: 7(878)927-842902 [place] [address] 02-26-2025 21:40-0400 Diastolic blood pressure 85 mm[Hg] [facility] Work Phone: 0(681)644-034802 [place] [address] 02-26-2025 21:40-0400 Heart rate 64 /min [facility] Work Phone: 8(091)661-857402 [place] [address] 02-26-2025 21:40-0400 Respiratory rate 18 /min [facility] Work Phone: 0(741)858-644902 [place] [address] 02-26-2025 21:40-0400 SaO2% (BldA) [Mass fraction] 99 % [facility] Work Phone: 2(298)739-221402 [place] [address] 02-26-2025 21:40-0400 Systolic blood pressure 135 mm[Hg] [facility] Work Phone: 7(863)344-913802 [place] [address] 02-26-2025 20:33-0400 Body height 157.48 cm [facility] Work Phone: 4(186)550-825602 [place] [address] 02-26-2025 20:33-0400 Body mass index (BMI) [Ratio] 36.6 kg/m2 [facility] Work Phone: 3(698)476-834702 [place] [address] 02-26-2025 20:33-0400 Body weight 90.7 kg [facility] Work Phone: 9(973)585-338602 [place] [address] 02-22-2025 04:34-0400 Body temperature 98.5 [degF] [facility] Work Phone: 4(254)789-153702 [place] [address] 02-22-2025 04:34-0400 Diastolic blood pressure 61 mm[Hg] [facility] Work Phone: 4(125)234-666402 [place] [address] 02-22-2025 04:34-0400 Heart rate 64 /min [facility] Work Phone: 1(206)302-537002 [place] [address] 02-22-2025 04:34-0400 Respiratory rate 16 /min [facility] Work Phone: 3(319)159-196202 [place] [address] 02-22-2025 04:34-0400 SaO2% (BldA) [Mass fraction] 98 % [facility] Work Phone: 4(493)108-816702 [place] [address] 02-22-2025 04:34-0400 Systolic blood pressure 104 mm[Hg] [facility] Work Phone: 6(020)767-517202 [place] [address] 02-21-2025 22:34-0400 Body height 157.48 cm [facility] Work Phone: 3(815)641-240802 [place] [address] 02-21-2025 22:34-0400 Body mass index (BMI) [Ratio] 35.6 kg/m2 [facility] Work Phone: 7(598)615-946302 [place] [address] 02-21-2025 22:34-0400 Body weight 88.45 kg [facility] Work Phone: 7(523)427-130702 [place] [address] 02-08-2025 13:33-0400 Body temperature 98.7 [degF] [facility] Work Phone: 9(983)281-111202 [place] [address] 02-08-2025 13:33-0400 Diastolic blood pressure 80 mm[Hg] [facility] Work Phone: 3(654)887-741702 [place] [address] 02-08-2025 13:33-0400 Heart rate 51 /min [facility] Work Phone: 8(057)542-106902 [place] [address] 02-08-2025 13:33-0400 Respiratory rate 16 /min [facility] Work Phone: 7(845)014-476102 [place] [address] 02-08-2025 13:33-0400 SaO2% (BldA) [Mass fraction] 100 % [facility] Work Phone: 8(559)832-470502 [place] [address] 02-08-2025 13:33-0400 Systolic blood pressure 117 mm[Hg] [facility] Work Phone: 6(143)405-084802 [place] [address] 02-08-2025 11:16-0400 Body height 157.48 cm [facility] Work Phone: 2(830)829-832002 [place] [address] 02-08-2025 11:16-0400 Body mass index (BMI) [Ratio] 33.7 kg/m2 [facility] Work Phone: 9(841)873-548002 [place] [address] 02-08-2025 11:16-0400 Body weight 83.6 kg [facility] Work Phone: 6(814)069-137002 [place] [address] 02-04-2025 16:07-0400 Body temperature 98 [degF] [facility] Work Phone: 8(706)257-525702 [place] [address] 02-04-2025 16:07-0400 Diastolic blood pressure 100 mm[Hg] [facility] Work Phone: 6(804)828-586202 [place] [address] 02-04-2025 16:07-0400 Heart rate 78 /min [facility] Work Phone: 6(806)989-785802 [place] [address] 02-04-2025 16:07-0400 Respiratory rate 18 /min [facility] Work Phone: 2(055)739-896902 [place] [address] 02-04-2025 16:07-0400 SaO2% (BldA) [Mass fraction] 99 % [facility] Work Phone: 0(909)068-966702 [place] [address] 02-04-2025 16:07-0400 Systolic blood pressure 134 mm[Hg] [facility] Work Phone: 2(458)672-196102 [place] [address] 02-04-2025 10:58-0400 Body height 157.48 cm [facility] Work Phone: 8(832)900-063302 [place] [address] 02-04-2025 10:58-0400 Body mass index (BMI) [Ratio] 50.8 kg/m2 [facility] Work Phone: 0(140)851-408502 [place] [address] 02-04-2025 10:58-0400 Body weight 126.09 kg [facility] Work Phone: 9(276)540-199102 [place] [address] 01-18-2025 15:18-0400 Body mass index (BMI) [Ratio] 34 kg/m2 [facility] Work Phone: 0(093)645-893102 [place] [address] 01-18-2025 15:18-0400 Body weight 84.36 kg [facility] Work Phone: 1(689)171-768002 [place] [address] 01-18-2025 15:18-0400 Diastolic blood pressure 66 mm[Hg] [facility] Work Phone: 3(180)224-161202 [place] [address] 01-18-2025 15:18-0400 Heart rate 68 /min [facility] Work Phone: 4(909)457-066902 [place] [address] 01-18-2025 15:18-0400 Respiratory rate 16 /min [facility] Work Phone: 0(054)214-352502 [place] [address] 01-18-2025 15:18-0400 SaO2% (BldA) [Mass fraction] 95 % [facility] Work Phone: 6(189)272-369602 [place] [address] 01-18-2025 15:18-0400 Systolic blood pressure 109 mm[Hg] [facility] Work Phone: 0(661)478-689802 [place] [address] 01-17-2025 17:59-0400 Diastolic Blood Pressure Non-Invasive 57 mm[Hg] DR BROOKLYN MIKE MD [facility] [facility] 01-17-2025 17:59-0400 Heart rate 60 /min DR BROOKLYN MIKE MD [facility] 01-17-2025 17:59-0400 Respiratory rate 18 /min DR BROOKLYN MIKE MD [facility] 01-17-2025 17:59-0400 Systolic Blood Pressure Non-Invasive 101 mm[Hg] DR BROOKLYN MIKE MD [facility] 01-17-2025 15:18-0400 Diastolic Blood Pressure Non-Invasive 57 mm[Hg] DR BROOKLYN MIKE MD [facility] 01-17-2025 15:18-0400 Heart rate 57 /min DR BROOKLYN MIKE MD [facility] 01-17-2025 15:18-0400 Respiratory rate 16 /min DR BROOKLYN MIKE MD [address] [place] [address] 01-17-2025 15:18-0400 Systolic Blood Pressure Non-Invasive 96 mm[Hg] DR BROOKLYN MIKE MD [facility] 01-17-2025 14:05-0400 Diastolic Blood Pressure Non-Invasive 64 mm[Hg] DR BROOKLYN MIKE MD [facility] 01-17-2025 14:05-0400 Heart rate 56 /min DR BROOKLYN MIKE MD [facility] 01-17-2025 14:05-0400 Respiratory rate 13 /min DR BROOKLYN MIKE MD [facility] 01-17-2025 14:05-0400 Systolic Blood Pressure Non-Invasive 104 mm[Hg] DR BROOKLYN MIKE MD [facility] 01-17-2025 12:30-0400 Body temperature 97.52 [degF] DR BROOKLYN MIKE MD [facility] 01-17-2025 12:30-0400 Body weight [address] BROOKLYN MIKE MD [facility] 12-13-2024 11:08-0400 Body temperature 98.49 [degF] Leah Hector DO Work Phone: [facility] 12-13-2024 11:08-0400 Diastolic blood pressure 70 mm[Hg] Dalkeith Krunal DO Work Phone: [facility] 12-13-2024 11:08-0400 Heart rate 61 /min Dalkeith Krunal DO Work Phone: [facility] 12-13-2024 11:08-0400 Respiratory rate 18 /min Dalkeith Krunal DO Work Phone: [facility] 12-13-2024 11:08-0400 SaO2% (BldA) [Mass fraction] 97 % Dalkeith Krunal DO Work Phone: [facility] 12-13-2024 11:08-0400 Systolic blood pressure 107 mm[Hg] Dalkeith Krunal DO Work Phone: [facility] 12-13-2024 04:10-0400 Body mass index (BMI) [Ratio] 33.32 kg/m2 Dalkeith Krunal DO Work Phone: [facility] 12-13-2024 04:10-0400 Body weight 82.64 kg Dalkeith Krunal DO Work Phone: [facility] 12-10-2024 01:15-0400 Body height 157.5 cm Dalkeith Krunal DO Work Phone: [facility] 12-06-2024 10:26-0400 Diastolic blood pressure 77 mm[Hg] Max Rico MD Work Phone: [facility] 12-06-2024 10:26-0400 Heart rate 67 /min Max Rico MD Work Phone: [facility] 12-06-2024 10:26-0400 Respiratory rate 18 /min Max Rico MD Work Phone: [facility] 12-06-2024 10:26-0400 SaO2% (BldA) [Mass fraction] 100 % Max Rico MD Work Phone: [facility] 12-06-2024 10:26-0400 Systolic blood pressure 130 mm[Hg] Max Rico MD Work Phone: [facility] 11-28-2024 10:17-0500 Diastolic blood pressure 70 mm[Hg] Minda Gómez MD Work Phone: [facility] 11-28-2024 10:17-0500 Heart rate 63 /min Minda Gómez MD Work Phone: [facility] 11-28-2024 10:17-0500 Respiratory rate 18 /min Minda Gómez MD Work Phone: [facility] 11-28-2024 10:17-0500 SaO2% (BldA) [Mass fraction] 98 % Minda Gómez MD Work Phone: [facility] 11-28-2024 10:17-0500 Systolic blood pressure 112 mm[Hg] Minda Gómez MD Work Phone: [facility] 11-19-2024 14:47-0500 Body height 157.5 cm Lambert Veliz DO Work Phone: [facility] 11-19-2024 14:47-0500 Body mass index (BMI) [Ratio] 33.82 kg/m2 Lambert Veliz DO Work Phone: [facility] 11-19-2024 14:47-0500 Body temperature 98.49 [degF] Lambert Veliz DO Work Phone: [facility] 11-19-2024 14:47-0500 Body weight 83.87 kg Lambert Veliz DO Work Phone: [facility] 11-19-2024 14:47-0500 Diastolic blood pressure 70 mm[Hg] Lambert Veliz DO Work Phone: [facility] 11-19-2024 14:47-0500 Heart rate 70 /min Lambert Veliz DO Work Phone: [facility] 11-19-2024 14:47-0500 Respiratory rate 18 /min Lambert Veliz DO Work Phone: [facility] 11-19-2024 14:47-0500 SaO2% (BldA) [Mass fraction] 97 % Lambert Veliz DO Work Phone: [facility] 11-19-2024 14:47-0500 Systolic blood pressure 117 mm[Hg] Lambert Veliz DO Work Phone: [facility] 10-30-2024 08:25-0500 Diastolic blood pressure 82 mm[Hg] Minda Gómez MD Work Phone: [facility] 10-30-2024 08:25-0500 Heart rate 70 /min Minda Gómez MD Work Phone: [facility] 10-30-2024 08:25-0500 Respiratory rate 18 /min Minda Gómez MD Work Phone: [facility] 10-30-2024 08:25-0500 SaO2% (BldA) [Mass fraction] 100 % Minda Gómez MD Work Phone: [facility] 10-30-2024 08:25-0500 Systolic blood pressure 133 mm[Hg] Minda Gómez MD Work Phone: [facility] 10-18-2024 14:09-0500 Diastolic blood pressure 62 mm[Hg] Ginger Milton MD Work Phone: [facility] 10-18-2024 14:09-0500 Heart rate 59 /min Ginger Milton MD Work Phone: [facility] 10-18-2024 14:09-0500 Respiratory rate 18 /min Ginger Milton MD Work Phone: [facility] 10-18-2024 14:09-0500 SaO2% (BldA) [Mass fraction] 99 % Ginger Milton MD Work Phone: [facility] 10-18-2024 14:09-0500 Systolic blood pressure 101 mm[Hg] Ginger Milton MD Work Phone: [facility] 10-04-2024 11:06-0500 Diastolic blood pressure 65 mm[Hg] Pete Ponce MD Work Phone: [facility] 10-04-2024 11:06-0500 Heart rate 57 /min Pete Ponce MD Work Phone: [facility] 10-04-2024 11:06-0500 Respiratory rate 18 /min Pete Ponce MD Work Phone: [facility] 10-04-2024 11:06-0500 SaO2% (BldA) [Mass fraction] 99 % Pete Ponce MD Work Phone: [facility] 10-04-2024 11:06-0500 Systolic blood pressure 114 mm[Hg] Pete Ponce MD Work Phone: [facility] 10-04-2024 08:15-0500 Body height 157.5 cm Pete Ponce MD Work Phone: [facility] 10-04-2024 08:15-0500 Body mass index (BMI) [Ratio] 32.98 kg/m2 Pete Ponce MD Work Phone: [facility] 10-04-2024 08:15-0500 Body temperature 98.2 [degF] Pete Ponce MD Work Phone: [facility] 10-04-2024 08:15-0500 Body weight 81.78 kg Pete Ponce MD Work Phone: [facility] 10-03-2024 10:22-0500 Diastolic blood pressure 76 mm[Hg] Max Rico MD Work Phone: [facility] 10-03-2024 10:22-0500 Heart rate 63 /min Max Rico MD Work Phone: [facility] 10-03-2024 10:22-0500 SaO2% (BldA) [Mass fraction] 99 % Max Rico MD Work Phone: [facility] 10-03-2024 10:22-0500 Systolic blood pressure 117 mm[Hg] Max Rico MD Work Phone: [facility] 10-03-2024 10:22-0500 Respiratory rate 16 /min Max Rico MD Work Phone: [facility] 09-28-2024 13:38-0500 Diastolic blood pressure 57 mm[Hg] Pete Ponce MD Work Phone: [facility] 09-28-2024 13:38-0500 Systolic blood pressure 110 mm[Hg] Pete Ponce MD Work Phone: [facility] 09-28-2024 12:41-0500 Heart rate 61 /min Pete Ponce MD Work Phone: [facility] 09-28-2024 12:41-0500 Respiratory rate 18 /min Pete Ponce MD Work Phone: [facility] 09-28-2024 12:41-0500 SaO2% (BldA) [Mass fraction] 100 % Pete Ponce MD Work Phone: [facility] 09-28-2024 10:48-0500 Body mass index (BMI) [Ratio] 32.65 kg/m2 Pete Ponce MD Work Phone: [facility] 09-28-2024 10:48-0500 Body temperature 98.2 [degF] Pete Ponce MD Work Phone: [facility] 09-28-2024 10:48-0500 Body weight 80.97 kg Pete Ponce MD Work Phone: [facility] 09-27-2024 10:31-0500 Diastolic blood pressure 73 mm[Hg] Ginger Milton MD Work Phone: [facility] 09-27-2024 10:31-0500 Heart rate 68 /min Ginger Milton MD Work Phone: [facility] 09-27-2024 10:31-0500 SaO2% (BldA) [Mass fraction] 100 % Ginger Milton MD Work Phone: [facility] 09-27-2024 10:31-0500 Systolic blood pressure 116 mm[Hg] Ginger Milton MD Work Phone: [facility] 09-20-2024 11:10-0500 Diastolic blood pressure 65 mm[Hg] Minda Gómez MD Work Phone: [facility] 09-20-2024 11:10-0500 Heart rate 57 /min Minda Gómez MD Work Phone: [facility] 09-20-2024 11:10-0500 SaO2% (BldA) [Mass fraction] 100 % Minda Gómez MD Work Phone: [facility] 09-20-2024 11:10-0500 Systolic blood pressure 101 mm[Hg] Minda Gómez MD Work Phone: [facility] 09-20-2024 11:05-0500 Respiratory rate 16 /min Minda Gómez MD Work Phone: [facility] 09-13-2024 14:53-0500 Diastolic blood pressure 82 mm[Hg] Max Rico MD Work Phone: [facility] 09-13-2024 14:53-0500 Heart rate 59 /min Max Rico MD Work Phone: [facility] 09-13-2024 14:53-0500 SaO2% (BldA) [Mass fraction] 99 % Max Rico MD Work Phone: [facility] 09-13-2024 14:53-0500 Systolic blood pressure 126 mm[Hg] Max Rico MD Work Phone: [facility] 08-30-2024 14:26-0500 Diastolic blood pressure 85 mm[Hg] Minda Gómez MD Work Phone: [facility] 08-30-2024 14:26-0500 Heart rate 64 /min Minda Gómez MD Work Phone: [facility] 08-30-2024 14:26-0500 SaO2% (BldA) [Mass fraction] 99 % Minda Gómez MD Work Phone: [facility] 08-30-2024 14:26-0500 Systolic blood pressure 139 mm[Hg] Minda Gómez MD Work Phone: [facility] 08-30-2024 14:26-0500 Respiratory rate 16 /min Minda Gómez MD Work Phone: [facility] 08-22-2024 13:19-0500 Diastolic blood pressure 58 mm[Hg] Max Rico MD Work Phone: [facility] 08-22-2024 13:19-0500 Heart rate 73 /min Max Rico MD Work Phone: [facility] 08-22-2024 13:19-0500 Respiratory rate 16 /min Max Rico MD Work Phone: [facility] 08-22-2024 13:19-0500 SaO2% (BldA) [Mass fraction] 98 % Max Rico MD Work Phone: [facility] 08-22-2024 13:19-0500 Systolic blood pressure 105 mm[Hg] Max Rico MD Work Phone: [facility] 08-16-2024 14:02-0500 Diastolic blood pressure 75 mm[Hg] Ginger Milton MD Work Phone: [facility] 08-16-2024 14:02-0500 Heart rate 70 /min Ginger Milton MD Work Phone: [facility] 08-16-2024 14:02-0500 SaO2% (BldA) [Mass fraction] 98 % Ginger Milton MD Work Phone: [facility] 08-16-2024 14:02-0500 Systolic blood pressure 122 mm[Hg] Ginger Milton MD Work Phone: [facility] 08-16-2024 13:24-0500 Respiratory rate 16 /min Ginger Milton MD Work Phone: [facility] 08-09-2024 14:21-0500 Diastolic blood pressure 63 mm[Hg] Minda Gómez MD Work Phone: [facility] 08-09-2024 14:21-0500 Heart rate 75 /min Minda Gómez MD Work Phone: [facility] 08-09-2024 14:21-0500 Respiratory rate 18 /min Minda Gómez MD Work Phone: [facility] 08-09-2024 14:21-0500 SaO2% (BldA) [Mass fraction] 97 % Minda Gómez MD Work Phone: [facility] 08-09-2024 14:21-0500 Systolic blood pressure 114 mm[Hg] Minda Gómez MD Work Phone: [facility] 08-02-2024 15:43-0500 Diastolic blood pressure 65 mm[Hg] Ginger Milton MD Work Phone: [facility] 08-02-2024 15:43-0500 Heart rate 72 /min Ginger Milton MD Work Phone: [facility] 08-02-2024 15:43-0500 SaO2% (BldA) [Mass fraction] 99 % Ginger Milton MD Work Phone: [facility] 08-02-2024 15:43-0500 Systolic blood pressure 109 mm[Hg] Ginger Milton MD Work Phone: [facility] 07-26-2024 17:07-0400 Diastolic blood pressure 83 mm[Hg] Pete Ponce MD Work Phone: [facility] 07-26-2024 17:07-0400 Respiratory rate 16 /min Pete Ponce MD Work Phone: [facility] 07-26-2024 17:07-0400 SaO2% (BldA) [Mass fraction] 100 % Pete Ponce MD Work Phone: [facility] 07-26-2024 17:07-0400 Systolic blood pressure 121 mm[Hg] Pete Ponce MD Work Phone: [facility] 07-26-2024 16:48-0400 Heart rate 58 /min Pete Ponce MD Work Phone: [facility] 07-26-2024 10:43-0400 Body height 157.5 cm Pete Ponce MD Work Phone: [facility] 07-26-2024 10:43-0400 Body mass index (BMI) [Ratio] 32.9 kg/m2 Pete Ponce MD Work Phone: [facility] 07-26-2024 10:43-0400 Body temperature 98.71 [degF] Pete Ponce MD Work Phone: [facility] 07-26-2024 10:43-0400 Body weight 81.6 kg Pete Ponce MD Work Phone: [facility] 07-19-2024 17:11-0400 Diastolic blood pressure 68 mm[Hg] Minda Gómez MD Work Phone: [facility] 07-19-2024 17:11-0400 Heart rate 74 /min Minda Gómez MD Work Phone: [facility] 07-19-2024 17:11-0400 SaO2% (BldA) [Mass fraction] 99 % Minda Gómez MD Work Phone: [facility] 07-19-2024 17:11-0400 Systolic blood pressure 116 mm[Hg] Minda Gómez MD Work Phone: [facility] 07-19-2024 16:03-0400 Respiratory rate 14 /min Minda Gómez MD Work Phone: [facility] 07-10-2024 07:25-0400 Body temperature 99 [degF] Lambert Veliz DO Work Phone: [facility] 07-10-2024 07:25-0400 Diastolic blood pressure 73 mm[Hg] Lambert Veliz DO Work Phone: [facility] 07-10-2024 07:25-0400 Heart rate 69 /min Lambert Veliz DO Work Phone: [facility] 07-10-2024 07:25-0400 SaO2% (BldA) [Mass fraction] 100 % Lambert Veliz DO Work Phone: [facility] 07-10-2024 07:25-0400 Systolic blood pressure 133 mm[Hg] Lambert Veliz DO Work Phone: [facility] 07-10-2024 05:00-0400 Body mass index (BMI) [Ratio] 30.93 kg/m2 Lambert Veilz DO Work Phone: [facility] 07-10-2024 05:00-0400 Body weight 76.7 kg Lambert Veliz DO Work Phone: [facility] 07-10-2024 04:01-0400 Respiratory rate 18 /min Lambert Veliz DO Work Phone: [facility] 07-08-2024 18:00-0400 Body height 157.5 cm Lambert Veliz DO Work Phone: [facility] 07-05-2024 10:28-0400 Body height 157.5 cm Pete Ponce MD Work Phone: [facility] 07-05-2024 10:28-0400 Body mass index (BMI) [Ratio] 30.6 kg/m2 Pete Ponce MD Work Phone: [facility] 07-05-2024 10:28-0400 Body temperature 98.49 [degF] Pete Ponce MD Work Phone: [facility] 07-05-2024 10:28-0400 Body weight 75.89 kg Pete Ponce MD Work Phone: [facility] 07-05-2024 10:28-0400 Diastolic blood pressure 84 mm[Hg] Pete Ponce MD Work Phone: [facility] 07-05-2024 10:28-0400 Heart rate 64 /min Pete Ponce MD Work Phone: [facility] 07-05-2024 10:28-0400 Respiratory rate 20 /min Pete Ponce MD Work Phone: [facility] 07-05-2024 10:28-0400 SaO2% (BldA) [Mass fraction] 100 % Pete Ponce MD Work Phone: [facility] 07-05-2024 10:28-0400 Systolic blood pressure 134 mm[Hg] Pete Ponce MD Work Phone: [facility] 07-02-2024 14:19-0400 Diastolic blood pressure 79 mm[Hg] Pete Ponce MD Work Phone: [facility] 07-02-2024 14:19-0400 Heart rate 54 /min Pete Ponce MD Work Phone: [facility] 07-02-2024 14:19-0400 Respiratory rate 16 /min Pete Ponce MD Work Phone: [facility] 07-02-2024 14:19-0400 SaO2% (BldA) [Mass fraction] 99 % Pete Ponce MD Work Phone: [facility] 07-02-2024 14:19-0400 Systolic blood pressure 153 mm[Hg] Pete Ponce MD Work Phone: [facility] 07-02-2024 09:54-0400 Body height 157.5 cm Pete Ponce MD Work Phone: [facility] 07-02-2024 09:54-0400 Body mass index (BMI) [Ratio] 30.56 kg/m2 Pete Ponce MD Work Phone: [facility] 07-02-2024 09:54-0400 Body temperature 98.71 [degF] Pete Ponce MD Work Phone: [facility] 07-02-2024 09:54-0400 Body weight 75.8 kg Pete Ponce MD Work Phone: [facility] 05-10-2024 12:16-0400 Body mass index (BMI) [Ratio] 28.35 kg/m2 Claribel Lagunas APRN.[employer] Work Phone: [facility] 05-10-2024 12:16-0400 Body weight 70.31 kg Claribel Lagunas APRN.[employer] Work Phone: [facility] 05-10-2024 12:16-0400 Diastolic blood pressure 80 mm[Hg] Claribel Lagunas SALES EXECUTIVE.[employer] Work Phone: [facility] 05-10-2024 12:16-0400 Heart rate 66 /min Claribel Lagunas SALES EXECUTIVE.[employer] Work Phone: [facility] 05-10-2024 12:16-0400 Respiratory rate 14 /min Claribel Lagunas SALES EXECUTIVE.[employer] Work Phone: [facility] 05-10-2024 12:16-0400 Systolic blood pressure 129 mm[Hg] Claribel Janneth SALES EXECUTIVE.[employer] Work Phone: [facility] 05-07-2024 10:31-0400 Body mass index (BMI) [Ratio] 28.35 kg/m2 Therese Pascual-Jung SALES EXECUTIVE.[employer] Work Phone: [facility] 05-07-2024 10:31-0400 Body temperature 97.39 [degF] Therese Pascual-Jung SALES EXECUTIVE.[employer] Work Phone: [facility] 05-07-2024 10:31-0400 Body weight 70.3 kg Therese Pascual-Jung SALES EXECUTIVE.[employer] Work Phone: [facility] 05-07-2024 10:31-0400 Diastolic blood pressure 80 mm[Hg] Therese Praisler-Jung SALES EXECUTIVE.[employer] Work Phone: [facility] 05-07-2024 10:31-0400 Heart rate 64 /min Therese Quinteroler-Jung SALES EXECUTIVE.[employer] Work Phone: [facility] 05-07-2024 10:31-0400 Respiratory rate 16 /min Therese Praisler-Jung SALES EXECUTIVE.[employer] Work Phone: [facility] 05-07-2024 10:31-0400 SaO2% (BldA) [Mass fraction] 100 % Therese Shieldsisler-Jung SALES EXECUTIVE.[employer] Work Phone: [facility] 05-07-2024 10:31-0400 Systolic blood pressure 124 mm[Hg] Therese Praisler-Jung SALES EXECUTIVE.[employer] Work Phone: [facility] 04-20-2024 13:43-0400 Body mass index (BMI) [Ratio] 28.9 kg/m2 Mervin Ambrocio SALES EXECUTIVE.[employer] Work Phone: [facility] 04-20-2024 13:43-0400 Body weight 71.67 kg Mervin Ambrocio SALES EXECUTIVE.[employer] Work Phone: [facility] 04-20-2024 13:43-0400 Diastolic blood pressure 80 mm[Hg] Mervin Ambrocio SALES EXECUTIVE.[employer] Work Phone: [facility] 04-20-2024 13:43-0400 Heart rate 66 /min Mervin Ambrocio SALES EXECUTIVE.[employer] Work Phone: [facility] 04-20-2024 13:43-0400 Respiratory rate 16 /min Mervin Ambrocio SALES EXECUTIVE.[employer] Work Phone: [facility] 04-20-2024 13:43-0400 SaO2% (BldA) [Mass fraction] 98 % Mervin Ambrocio SALES EXECUTIVE.[employer] Work Phone: [facility] 04-20-2024 13:43-0400 Systolic blood pressure 110 mm[Hg] Mervin Burnsil SALES EXECUTIVE.[employer] Work Phone: [facility] 03-23-2024 17:55-0400 Diastolic Blood Pressure Non-Invasive 62 mm[Hg] CARLA MUHAMMADT DO [facility] 03-23-2024 17:55-0400 Heart rate 57 /min CARLA MUHAMMADT DO [facility] 03-23-2024 17:55-0400 Respiratory rate 16 /min CARLA MUHAMMADT DO [facility] 03-23-2024 17:55-0400 Systolic Blood Pressure Non-Invasive 97 mm[Hg] CARLA MUHAMMADT DO [facility] 03-23-2024 14:22-0400 Body temperature 97.16 [degF] CARLA MUHAMMADT DO [facility] 03-23-2024 [id number] Body weight 72.6 kg CARLA MUHAMMADT DO [facility] 03-23-2024 14:22-0400 Diastolic Blood Pressure Non-Invasive 86 mm[Hg] CARLA MITCHELL DO [facility] 03-23-2024 14:22-0400 Heart rate 72 /min CARLA MITCHELL DO [facility] 03-23-2024 14:22-0400 Respiratory rate 16 /min CARLA MITCHELL DO [facility] 03-23-2024 14:22-0400 Systolic Blood Pressure Non-Invasive 119 mm[Hg] CARLA MITCHELL DO [facility] 01-31-2024 [id number] Body height 157.5 cm Ashanti Bogner PA-C Work Phone: [facility] 01-31-2024 10:11-0400 Body mass index (BMI) [Ratio] 29.81 kg/m2 Ashanti Bogner PA-C Work Phone: [facility] 01-31-2024 10:11-0400 Body temperature 97.39 [degF] Ashanti Bogner PA-C Work Phone: [facility] 01-31-2024 10:11-0400 Body weight 73.94 kg Ashanti Bogner PA-C Work Phone: [facility] 01-31-2024 10:11-0400 Diastolic blood pressure 54 mm[Hg] Ashanti Bogner PA-C Work Phone: [facility] 01-31-2024 10:11-0400 Heart rate 69 /min Ashanti Bogner PA-C Work Phone: [facility] 01-31-2024 10:11-0400 Respiratory rate 12 /min Ashanti Sonner PA-C Work Phone: [facility] 01-31-2024 10:11-0400 SaO2% (BldA) [Mass fraction] 100 % Ashanti Sonner PA-C Work Phone: [facility] 01-31-2024 10:11-0400 Systolic blood pressure 116 mm[Hg] Asahnti Sonner PA-C Work Phone: [facility] 12-28-2023 10:15-0400 Body temperature 97.2 [degF] Dr. Dacia Acosta Work Phone: [facility] 12-28-2023 10:15-0400 Diastolic blood pressure 52 mm[Hg] Dr. Dacia Acosta Work Phone: [facility] 12-28-2023 10:15-0400 Heart rate 76 /min Dr. Dacia Acosta Work Phone: [facility] 12-28-2023 10:15-0400 Respiratory rate 16 /min Dr. Dacia Acosta Work Phone: [facility] 12-28-2023 10:15-0400 SaO2% (BldA) [Mass fraction] 96 % Dr. Daica Acosta Work Phone: [facility] 12-28-2023 10:15-0400 Systolic blood pressure 93 mm[Hg] Dr. Dacia Acosta Work Phone: [facility] 12-28-2023 08:52-0400 Body height 157.[address] Dacia Acosta Work Phone: [facility] 12-28-2023 08:52-0400 Body mass index (BMI) [Ratio] 31.4 kg/m2 Dr. Dacia Acosta Work Phone: [facility] 12-28-2023 08:52-0400 Body weight 78.[address] Dacia Acosta Work Phone: [facility] 12-13-2023 13:30-0400 Body temperature 97.9 [degF] Mervin Cristóbal SALES EXECUTIVE.[employer] Work Phone: [facility] 12-13-2023 13:30-0400 Body weight 81.74 kg Mervin Cristóbal SALES EXECUTIVE.[employer] Work Phone: [facility] 12-13-2023 13:30-0400 Diastolic blood pressure 62 mm[Hg] Mervin Cristóbal SALES EXECUTIVE.[employer] Work Phone: [facility] 12-13-2023 13:30-0400 Heart rate 68 /min Mervin Cristóbal SALES EXECUTIVE.[employer] Work Phone: [facility] 12-13-2023 13:30-0400 Respiratory rate 16 /min Mervin Cristóbal SALES EXECUTIVE.[employer] Work Phone: [facility] 12-13-2023 13:30-0400 SaO2% (BldA) [Mass fraction] 99 % Mervin Cristóbal SALES EXECUTIVE.[employer] Work Phone: [facility] 12-13-2023 13:30-0400 Systolic blood pressure 91 mm[Hg] Mervin Cristóbal SALES EXECUTIVE.[employer] Work Phone: [facility] 12-09-2023 23:39-0400 Body temperature 97.4 [degF] Dr. Dacia Acosta Work Phone: [facility] 12-09-2023 23:39-0400 Diastolic blood pressure 73 mm[Hg] Dr. Dacia Acosta Work Phone: [facility] 12-09-2023 23:39-0400 Heart rate 77 /min Dr. Dacia Acosta Work Phone: [facility] 12-09-2023 23:39-0400 Respiratory rate 16 /min Dr. Dacia Acosta Work Phone: [facility] 12-09-2023 23:39-0400 SaO2% (BldA) [Mass fraction] 100 % Dr. Dacia Acosta Work Phone: 8(338)702-390336 [place] [address] 12-09-2023 23:39-0400 Systolic blood pressure 112 mm[Hg] Dr. Dacia Acosta Work Phone: 3(240)098-772401 [place] [address] 12-09-2023 20:42-0400 Body mass index (BMI) [Ratio] 33 kg/m2 Dr. Dacia Acosta Work Phone: 9(337)598-325901 [place] [address] 12-09-2023 20:42-0400 Body weight 81.[address] Dacia Acosta Work Phone: 8(521)740-684801 [place] [address] 12-09-2023 18:49-0400 Body height 157.[address] Dacia Acosta Work Phone: 7(922)511-106901 [place] [address] 12-07-2023 14:30-0400 Body temperature 97 [degF] Dr. Dacia Acosta Work Phone: 6(060)668-865001 [place] [address] 12-07-2023 14:30-0400 Diastolic blood pressure 68 mm[Hg] Dr. Dacia Acosta Work Phone: 4(208)635-411101 [place] [address] 12-07-2023 14:30-0400 Heart rate 78 /min Dr. Dacia Acosta Work Phone: 5(423)377-865562 [place] [address] 12-07-2023 14:30-0400 Respiratory rate 16 /min Dr. Dacia Acosta Work Phone: 7(275)338-007562 [place] [address] 12-07-2023 14:30-0400 SaO2% (BldA) [Mass fraction] 99 % Dr. Dacia Acosta Work Phone: 8(081)811-259462 [address] 12-07-2023 14:30-0400 Systolic blood pressure 112 mm[Hg] Dr. Dacia Acosta Work Phone: 5(640)068-834962 [place] [address] 12-07-2023 13:23-0400 Body height 157.[address] Dacia Acosta Work Phone: 2(067)784-834801 [place] [address] 12-07-2023 13:23-0400 Body weight 79.[address] Dacia Acosta Work Phone: [facility] 12-07-2023 01:38-0400 Body mass index (BMI) [Ratio] 32.1 kg/m2 Dr. Dacia Acosta Work Phone: 0(030)275-682701 [place] [address] 12-04-2023 20:10-0400 Body temperature 97.8 [degF] Dr. Dacia Acosta Work Phone: 9(008)237-655901 [place] [address] 12-04-2023 20:10-0400 Diastolic blood pressure 75 mm[Hg] Dr. Dacia Acosta Work Phone: 5(367)425-692101 [place] [address] 12-04-2023 20:10-0400 Heart rate 74 /min Dr. Dacia Acosta Work Phone: 1(927)299-566801 [place] [address] 12-04-2023 20:10-0400 Respiratory rate 20 /min Dr. Dacia Acosta Work Phone: 4(965)965-296301 [place] [address] 12-04-2023 20:10-0400 SaO2% (BldA) [Mass fraction] 100 % Dr. Dacia Acosta Work Phone: 0(140)331-509101 [place] [address] 12-04-2023 20:10-0400 Systolic blood pressure 119 mm[Hg] Dr. Dacia Acosta Work Phone: 1(305)475-521801 [place] [address] 12-04-2023 17:49-0400 Body mass index (BMI) [Ratio] 34.6 kg/m2 Dr. Dacia Acosta Work Phone: 6(647)000-128362 [place] [address] 12-04-2023 17:49-0400 Body weight 85.[address] Dacia Acosta Work Phone: 4(161)720-383801 [place] [address] 12-04-2023 16:48-0400 Body height 157.[address] Dacia Acosta Work Phone: 7(940)583-446162 [address] 11-26-2023 10:27-0500 Body weight 83.37 kg Dacia Acosta MD Work Phone: [facility] 11-26-2023 10:27-0500 Diastolic blood pressure 70 mm[Hg] Dacia Acosta MD Work Phone: [facility] 11-26-2023 10:27-0500 Heart rate 90 /min Dacia Acosta MD Work Phone: [facility] 11-26-2023 10:27-0500 Respiratory rate 20 /min Dacia Acosta MD Work Phone: [facility] 11-26-2023 10:27-0500 SaO2% (BldA) [Mass fraction] 94 % Dacia Acosta MD Work Phone: [facility] 11-26-2023 10:27-0500 Systolic blood pressure 128 mm[Hg] Dacia Acosta MD Work Phone: [facility] 11-10-2023 17:45-0500 Body temperature 96.9 [degF] Dr. Dacia Acosta Work Phone: [facility] 11-10-2023 17:45-0500 Diastolic blood pressure 52 mm[Hg] Dr. Dacia Acosta Work Phone: [facility] 11-10-2023 17:45-0500 Heart rate 48 /min Dr. Dacia Acosta Work Phone: [facility] 11-10-2023 17:45-0500 Respiratory rate 14 /min Dr. Dacia Acosta Work Phone: [facility] 11-10-2023 17:45-0500 SaO2% (BldA) [Mass fraction] 95 % Dr. Dacia Acosta Work Phone: [facility] 11-10-2023 17:45-0500 Systolic blood pressure 114 mm[Hg] Dr. Dacia Acosta Work Phone: [facility] 11-10-2023 15:15-0500 Body height 157.[address] Dacia Acosta Work Phone: [facility] 11-07-2023 10:41-0500 Diastolic blood pressure 64 mm[Hg] Dr. Dacia Acosta Work Phone: [facility] 11-07-2023 10:41-0500 Heart rate 72 /min Dr. Dacia Acosta Work Phone: 4(677)631-108062 [place] [address] 11-07-2023 10:41-0500 Respiratory rate 16 /min Dr. Dacia Acosta Work Phone: 4(585)475-062901 [place] [address] 11-07-2023 10:41-0500 SaO2% (BldA) [Mass fraction] 98 % Dr. Dacia Acosta Work Phone: 7(477)029-196401 [place] [address] 11-07-2023 10:41-0500 Systolic blood pressure 127 mm[Hg] Dr. Dacia Acosta Work Phone: 8(929)180-039201 [place] [address] 11-07-2023 08:29-0500 Body mass index (BMI) [Ratio] 37.1 kg/m2 Dr. Dacia Acosta Work Phone: 6(793)441-608901 [place] [address] 11-07-2023 08:29-0500 Body weight 92.[address] Dacia Acosta Work Phone: 9(221)362-730301 [place] [address] 11-07-2023 07:23-0500 Body height 157.[address] Dacia Acosta Work Phone: 5(528)303-901601 [place] [address] 11-07-2023 07:23-0500 Body temperature 98.2 [degF] Dr. Dacia Acosta Work Phone: 6(152)603-626901 [place] [address] 11-05-2023 21:00-0500 Diastolic blood pressure 77 mm[Hg] Dr. Dacia Acosta Work Phone: 8(945)039-515001 [place] [address] 11-05-2023 21:00-0500 Heart rate 62 /min Dr. Dacia Acosta Work Phone: 1(736)251-393462 [place] [address] 11-05-2023 21:00-0500 Respiratory rate 14 /min Dr. Dacia Acosta Work Phone: 5(041)244-042901 [place] [address] 11-05-2023 21:00-0500 SaO2% (BldA) [Mass fraction] 98 % Dr. Dacia Acosta Work Phone: 5(004)760-315262 [place] [address] 11-05-2023 21:00-0500 Systolic blood pressure 131 mm[Hg] Dr. Dacia Acosta Work Phone: [facility] 11-05-2023 18:46-0500 Body height 157.[address] Dacia Acosta Work Phone: [facility] 11-05-2023 18:46-0500 Body mass index (BMI) [Ratio] 38.1 kg/m2 Dr. Dacia Acosta Work Phone: [facility] 11-05-2023 18:46-0500 Body temperature 97.1 [degF] Dr. Dacia Acosta Work Phone: [facility] 11-05-2023 18:46-0500 Body weight 94.[address] Dacia Acosta Work Phone: [facility] 11-01-2023 15:49-0500 Body temperature 97.5 [degF] Latasha Athy PA-C Work Phone: [facility] 11-01-2023 15:49-0500 Body weight 92.08 kg Latasha Athy PA-C Work Phone: [facility] 11-01-2023 15:49-0500 Diastolic blood pressure 86 mm[Hg] Latasha Athy PA-C Work Phone: [facility] 11-01-2023 15:49-0500 Heart rate 82 /min Latasha Athy PA-C Work Phone: [facility] 11-01-2023 15:49-0500 Respiratory rate 20 /min Latasha Athy PA-C Work Phone: [facility] 11-01-2023 15:49-0500 SaO2% (BldA) [Mass fraction] 100 % Latasha Athy PA-C Work Phone: [facility] 11-01-2023 15:49-0500 Systolic blood pressure 119 mm[Hg] Latasha Athy PA-C Work Phone: [facility] 2023 08:43-0500 Body temperature 98.3 [degF] Dr. Dacia Acosta Work Phone: 9(938)294-899962 [address] 2023 08:43-0500 Diastolic blood pressure 65 mm[Hg] Dr. Dacia Acosta Work Phone: 6(390)401-939301 [place] [address] 2023 08:43-0500 Heart rate 71 /min Dr. Dacia Acosta Work Phone: 7(439)690-848201 [place] [address] 2023 08:43-0500 Respiratory rate 16 /min Dr. Dacia Acosta Work Phone: 9(449)735-440801 [place] [address] 2023 08:43-0500 SaO2% (BldA) [Mass fraction] 98 % Dr. Dacia Acosta Work Phone: 1(059)170-275801 [place] [address] 2023 08:43-0500 Systolic blood pressure 121 mm[Hg] Dr. Dacia Acosta Work Phone: 5(719)178-578801 [place] [address] 10-06-2023 23:10-0500 Body height 157.[address] Dacia Acosta Work Phone: 3(526)424-835201 [place] [address] 10-06-2023 23:10-0500 Body mass index (BMI) [Ratio] 36.8 kg/m2 Dr. Dacia Acosta Work Phone: 5(103)985-674401 [place] [address] 10-06-2023 23:10-0500 Body weight 91.[address] Dacia Acosta Work Phone: 3(113)538-347101 [place] [address] 09-25-2023 00:14-0500 Diastolic blood pressure 84 mm[Hg] Dr. Dacia Acosta Work Phone: 0(732)195-084301 [place] [address] 09-25-2023 00:14-0500 Heart rate 68 /min Dr. Dacia Acosta Work Phone: 0(058)301-123701 [place] [address] 09-25-2023 00:14-0500 Respiratory rate 16 /min Dr. Dacia Acosta Work Phone: 3(730)211-367401 [place] [address] 09-25-2023 00:14-0500 SaO2% (BldA) [Mass fraction] 100 % Dr. Dacia Acosta Work Phone: [facility] 09-25-2023 00:14-0500 Systolic blood pressure 134 mm[Hg] Dr. Dacia Acosta Work Phone: [facility] 09-24-2023 20:43-0500 Body height 157.[address] Dacia Acosta Work Phone: [facility] 09-24-2023 20:43-0500 Body mass index (BMI) [Ratio] 36.8 kg/m2 Dr. Dacia Acosta Work Phone: [facility] 09-24-2023 20:43-0500 Body temperature 97.8 [degF] Dr. Dacia Acosta Work Phone: [facility] 09-24-2023 20:43-0500 Body weight 91.[address] Dacia Acosta Work Phone: [facility] 09-15-2023 12:01-0500 Body mass index (BMI) [Ratio] 38.38 kg/m2 Lenny Macdonald MD Work Phone: [facility] 09-15-2023 12:01-0500 Body weight 95.21 kg Lenny Macdonald MD Work Phone: [facility] 09-15-2023 11:39-0500 Body height 157.5 cm Lenny Macdonald MD Work Phone: [facility] 09-15-2023 06:02-0500 Body temperature 97.3 [degF] Lenny Macdonald MD Work Phone: [facility] 09-15-2023 06:02-0500 Diastolic blood pressure 53 mm[Hg] Lenny Macdonald MD Work Phone: [facility] 09-15-2023 06:02-0500 Heart rate 68 /min Lenny Macdonald MD Work Phone: [facility] 09-15-2023 06:02-0500 Respiratory rate 16 /min Lenny Macdonald MD Work Phone: [facility] 09-15-2023 06:02-0500 SaO2% (BldA) [Mass fraction] 98 % Lenny Macdonald MD Work Phone: [facility] 09-15-2023 06:02-0500 Systolic blood pressure 91 mm[Hg] Lenny Macdonald MD Work Phone: [facility] 08-22-2023 17:42-0500 Body temperature 98.2 [degF] Dr. Dacia Acosta Work Phone: [facility] 08-22-2023 17:42-0500 Diastolic blood pressure 89 mm[Hg] Dr. Dacia Acosta Work Phone: 0(357)344-084662 [address] 08-22-2023 17:42-0500 Heart rate 71 /min Dr. Dacia Acosta Work Phone: 6(058)120-724662 [address] 08-22-2023 17:42-0500 Respiratory rate 20 /min Dr. Dacia Acosta Work Phone: 4(344)592-882762 [place] [address] 08-22-2023 17:42-0500 SaO2% (BldA) [Mass fraction] 100 % Dr. Dacia Acosta Work Phone: 2(058)061-645262 [place] [address] 08-22-2023 17:42-0500 Systolic blood pressure 131 mm[Hg] Dr. Dacia Acosta Work Phone: [facility] 08-22-2023 13:45-0500 Body temperature 97.6 [degF] Dr. Dacia Acosta Work Phone: [facility] 08-22-2023 13:45-0500 Diastolic blood pressure 77 mm[Hg] Dr. Dacia Acosta Work Phone: 5(010)351-718262 [place] [address] 08-22-2023 13:45-0500 Heart rate 71 /min Dr. Dacia Acosta Work Phone: 4(494)910-593562 [place] [address] 08-22-2023 13:45-0500 Respiratory rate 18 /min Dr. Dacia Acosta Work Phone: [facility] 08-22-2023 13:45-0500 SaO2% (BldA) [Mass fraction] 97 % Dr. Dacia Acosta Work Phone: 5(717)256-465301 [place] [address] 08-22-2023 13:45-0500 Systolic blood pressure 131 mm[Hg] Dr. Dacia Acosta Work Phone: 3(230)628-804201 [place] [address] 08-22-2023 06:55-0500 Body height 157.[address] Dacia Acosta Work Phone: 6(624)157-064901 [place] [address] 08-22-2023 06:55-0500 Body mass index (BMI) [Ratio] 37.6 kg/m2 Dr. Dacia Acosta Work Phone: 3(965)295-187701 [place] [address] 08-22-2023 06:55-0500 Body weight 93.[address] Dacia Acosta Work Phone: 7(759)898-086501 [place] [address] 08-15-2023 14:40-0500 Diastolic blood pressure 58 mm[Hg] Dr. Dacia Acosta Work Phone: 6(954)171-082901 [place] [address] 08-15-2023 14:40-0500 Heart rate 72 /min Dr. Dacia Acosta Work Phone: 8(401)764-005501 [place] [address] 08-15-2023 14:40-0500 Systolic blood pressure 117 mm[Hg] Dr. Dacia Acosta Work Phone: 0(129)492-129901 [place] [address] 08-15-2023 12:59-0500 Body mass index (BMI) [Ratio] 36.6 kg/m2 Dr. Dacia Acosta Work Phone: 7(676)818-879401 [place] [address] 08-15-2023 12:59-0500 Body temperature 97.2 [degF] Dr. Dacia Acosta Work Phone: 6(637)185-833401 [place] [address] 08-15-2023 12:59-0500 Body weight 90.[address] Dacia Acosta Work Phone: 5(088)816-063201 [place] [address] 08-15-2023 12:59-0500 Respiratory rate 16 /min Dr. Dacia Acosta Work Phone: 0(536)483-196201 [place] [address] 08-15-2023 12:59-0500 SaO2% (BldA) [Mass fraction] 100 % Dr. Dacia Acosta Work Phone: [facility] 07-22-2023 15:37-0400 Body mass index (BMI) [Ratio] 40.9 kg/m2 Dr. Dacia Acosta Work Phone: 7(858)481-899701 [place] [address] 07-22-2023 15:37-0400 Body weight 101.[address] Dacia Acosta Work Phone: 6(323)722-418001 [place] [address] 07-22-2023 15:37-0400 Diastolic blood pressure 94 mm[Hg] Dr. Dacia Acosta Work Phone: 2(274)273-095301 [place] [address] 07-22-2023 15:37-0400 Heart rate 71 /min Dr. Dacia Acosta Work Phone: 5(449)146-319001 [place] [address] 07-22-2023 15:37-0400 SaO2% (BldA) [Mass fraction] 98 % Dr. Dacia Acosta Work Phone: 7(067)200-134601 [place] [address] 07-22-2023 15:37-0400 Systolic blood pressure 134 mm[Hg] Dr. Dacia Acosta Work Phone: 1(109)551-400001 [place] [address] 07-21-2023 13:13-0400 Body temperature 98 [degF] Dr. Dacia Acosta Work Phone: 3(568)824-377501 [place] [address] 07-21-2023 13:13-0400 Diastolic blood pressure 45 mm[Hg] Dr. Dacia Acosta Work Phone: 0(708)654-782301 [place] [address] 07-21-2023 13:13-0400 Heart rate 97 /min Dr. Dacia Acosta Work Phone: 7(771)640-215401 [place] [address] 07-21-2023 13:13-0400 Respiratory rate 18 /min Dr. Dacia Acosta Work Phone: 2(266)631-290701 [place] [address] 07-21-2023 13:13-0400 SaO2% (BldA) [Mass fraction] 98 % Dr. Dacia Acosta Work Phone: 6(715)507-494262 [address] 07-21-2023 13:13-0400 Systolic blood pressure 95 mm[Hg] Dr. Dacia Acosta Work Phone: [facility] 07-21-2023 06:00-0400 Body mass index (BMI) [Ratio] 40.4 kg/m2 Dr. Dacia Acosta Work Phone: [facility] 07-21-2023 06:00-0400 Body weight 99.[address] Dacia Acosta Work Phone: [facility] 07-21-2023 03:03-0400 Body height 157.[address] Dacia Acosta Work Phone: [facility] 07-20-2023 22:35-0400 Diastolic blood pressure 80 mm[Hg] [facility] 07-20-2023 22:35-0400 Heart rate 58 /min [facility] 07-20-2023 22:35-0400 Respiratory rate 16 /min [facility] 07-20-2023 22:35-0400 SaO2% (BldA) [Mass fraction] 100 % [facility] 07-20-2023 22:35-0400 Systolic blood pressure 132 mm[Hg] [facility] 07-20-2023 20:20-0400 Body temperature 97.7 [degF] [facility] 07-20-2023 16:13-0400 Body height 157.[address] [facility] 07-20-2023 16:13-0400 Body mass index (BMI) [Ratio] 40.9 kg/m2 [facility] 07-20-2023 16:13-0400 Body weight 101.[address] [facility] 04-25-2023 16:53-0400 Heart rate 74 /min [facility] 04-25-2023 16:53-0400 Respiratory rate 18 /min [facility] 04-25-2023 16:53-0400 SaO2% (BldA) [Mass fraction] 98 % [facility] 04-25-2023 13:53-0400 Body height 157.[address] [facility] 04-25-2023 13:53-0400 Body mass index (BMI) [Ratio] 38.5 kg/m2 [facility] 04-25-2023 13:53-0400 Body temperature 97.3 [degF] [facility] 04-25-2023 13:53-0400 Body weight 95.[address] [facility] 04-25-2023 13:53-0400 Diastolic blood pressure 97 mm[Hg] [facility] 04-25-2023 13:53-0400 Systolic blood pressure 133 mm[Hg] [facility] 12-02-2022 12:49-0500 Body temperature 98.29 [degF] Krislyn Aberegg PA Work Phone: [facility] 12-02-2022 12:49-0500 Body weight 94.62 kg Krislyn Aberegg PA Work Phone: [facility] 12-02-2022 12:49-0500 Diastolic blood pressure 78 mm[Hg] Krislyn Aberegg PA Work Phone: [facility] 12-02-2022 12:49-0500 Heart rate 64 /min Krislyn Aberegg PA Work Phone: [facility] 12-02-2022 12:49-0500 Respiratory rate 16 /min Krislyn Aberegg PA Work Phone: [facility] 12-02-2022 12:49-0500 SaO2% (BldA) [Mass fraction] 98 % Krislyn Aberegg PA Work Phone: [facility] 12-02-2022 12:49-0500 Systolic blood pressure 104 mm[Hg] Krislyn Aberegg PA Work Phone: [facility] 09-29-2022 17:56-0500 Body temperature 98.2 [degF] Lynn Prabhakar MD Work Phone: [facility] 09-29-2022 17:56-0500 Body weight 94.98 kg Lynn Prabhakar MD Work Phone: [facility] 09-29-2022 17:56-0500 Diastolic blood pressure 82 mm[Hg] Lynn Prabhakar MD Work Phone: [facility] 09-29-2022 17:56-0500 Heart rate 67 /min Lynn Prabhakar MD Work Phone: [facility] 09-29-2022 17:56-0500 Respiratory rate 20 /min Lynn Prabhakar MD Work Phone: [facility] 09-29-2022 17:56-0500 SaO2% (BldA) [Mass fraction] 99 % Lynn Prabhakar MD Work Phone: [facility] 09-29-2022 17:56-0500 Systolic blood pressure 122 mm[Hg] Lynn Prabhakar MD Work Phone: [facility] 09-15-2022 08:55-0500 Body temperature 97.8 [degF] Dr. Dacia Acosta Work Phone: [facility] Work Phone: 09-15-2022 08:55-0500 Diastolic blood pressure 88 mm[Hg] Dr. Dacia Acosta Work Phone: [facility] Work Phone: 09-15-2022 08:55-0500 Heart rate 74 /min Dr. Dacia Acosta Work Phone: [facility] Work Phone: 09-15-2022 08:55-0500 Respiratory rate 73 /min Dr. Dacia Acosta Work Phone: [facility] Work Phone: 09-15-2022 08:55-0500 SaO2% (BldA) [Mass fraction] 96 % Dr. Dacia Acosta Work Phone: [facility] Work Phone: 09-15-2022 08:55-0500 Systolic blood pressure 131 mm[Hg] Dr. Dacia Acosta Work Phone: [facility] Work Phone: 09-15-2022 07:44-0500 Body height 157.[address] Dacia Acosta Work Phone: [facility] Work Phone: 09-15-2022 07:44-0500 Body mass index (BMI) [Ratio] 35.4 kg/m2 Dr. Dacia Acosta Work Phone: [facility] Work Phone: 09-15-2022 07:44-0500 Body weight [address] Dacia Acosta Work Phone: [facility] Work Phone: 05-21-2022 13:25-0400 Body temperature 97.8 [degF] Dr. Dacia Acosta Work Phone: [facility] Work Phone: 05-21-2022 13:25-0400 Diastolic blood pressure 65 mm[Hg] Dr. Dacia Acosta Work Phone: [facility] Work Phone: 05-21-2022 13:25-0400 Heart rate 71 /min Dr. Dacia Acosta Work Phone: [facility] Work Phone: 05-21-2022 13:25-0400 Respiratory rate 16 /min Dr. Dacia Acosta Work Phone: [facility] Work Phone: 05-21-2022 13:25-0400 SaO2% (BldA) [Mass fraction] 100 % Dr. Dacia Acosta Work Phone: [facility] Work Phone: 05-21-2022 13:25-0400 Systolic blood pressure 100 mm[Hg] Dr. Dacia Acosta Work Phone: [facility] Work Phone: 05-21-2022 05:30-0400 Body weight 91.[address] Dacia Acosta Work Phone: [facility] Work Phone: 05-20-2022 13:41-0400 Body height 157.[address] Dacia Acosta Work Phone: [facility] Work Phone: 05-19-2022 22:23-0400 Body mass index (BMI) [Ratio] 36.3 kg/m2 Dr. Dacia Acosta Work Phone: [facility] Work Phone: 05-19-2022 21:52-0400 Body temperature 98 [degF] [facility] Work Phone: 05-19-2022 21:52-0400 Diastolic blood pressure 52 mm[Hg] [facility] Work Phone: 05-19-2022 21:52-0400 Heart rate 70 /min [facility] Work Phone: 05-19-2022 21:52-0400 Respiratory rate 15 /min [facility] Work Phone: 05-19-2022 21:52-0400 SaO2% (BldA) [Mass fraction] 95 % [facility] Work Phone: 05-19-2022 21:52-0400 Systolic blood pressure 118 mm[Hg] [facility] Work Phone: 05-19-2022 17:09-0400 Body height 157.[address] [facility] Work Phone: 05-19-2022 17:09-0400 Body mass index (BMI) [Ratio] 34.7 kg/m2 [facility] Work Phone: 05-19-2022 17:09-0400 Body weight 86.[address] [facility] Work Phone: 05-15-2022 19:35-0400 Body height 157.[address] [facility] Work Phone: 05-15-2022 19:35-0400 Body mass index (BMI) [Ratio] 33.5 kg/m2 [facility] Work Phone: 05-15-2022 19:35-0400 Body temperature 98.4 [degF] [facility] Work Phone: 05-15-2022 19:35-0400 Body weight [address] [facility] Work Phone: 05-15-2022 19:35-0400 Diastolic blood pressure 89 mm[Hg] [facility] Work Phone: 05-15-2022 19:35-0400 Heart rate 81 /min [facility] Work Phone: 05-15-2022 19:35-0400 Respiratory rate 15 /min [facility] Work Phone: 05-15-2022 19:35-0400 SaO2% (BldA) [Mass fraction] 99 % [facility] Work Phone: 05-15-2022 19:35-0400 Systolic blood pressure 131 mm[Hg] [facility] Work Phone: 05-10-2022 15:42-0400 Diastolic blood pressure 96 mm[Hg] Dacia Acosta MD Work Phone: [facility] 05-10-2022 15:42-0400 Systolic blood pressure 148 mm[Hg] Dacia Acosta MD Work Phone: [facility] 05-10-2022 15:39-0400 Body weight 89.18 kg Dacia Acosta MD Work Phone: [facility] 05-10-2022 15:39-0400 Heart rate 92 /min Dacia Acosta MD Work Phone: [facility] 05-10-2022 15:39-0400 Respiratory rate 20 /min Dacia Acosta MD Work Phone: [facility] 05-09-2022 14:43-0400 Body temperature 98.6 [degF] Blanca Dawson APRN.CNP Work Phone: [facility] 05-09-2022 14:43-0400 Body weight 91.54 kg Blanca Dawson APRN.[employer] Work Phone: [facility] 05-09-2022 14:43-0400 Diastolic blood pressure 74 mm[Hg] Blanca Dawson SALES EXECUTIVE.[employer] Work Phone: [facility] 05-09-2022 14:43-0400 Heart rate 85 /min Blanca Dawson SALES EXECUTIVE.[employer] Work Phone: [facility] 05-09-2022 14:43-0400 Respiratory rate 21 /min Blanca Dawson SALES EXECUTIVE.[employer] Work Phone: [facility] 05-09-2022 14:43-0400 SaO2% (BldA) [Mass fraction] 99 % Blanca Dawson APRN.[employer] Work Phone: [facility] 05-09-2022 14:43-0400 Systolic blood pressure 126 mm[Hg] Blanca Dawson SALES EXECUTIVE.[employer] Work Phone: [facility] 03-11-2022 14:26-0400 Body weight 92.08 kg Tresa Sandoval SALES EXECUTIVE.[employer] Work Phone: [facility] 03-11-2022 14:26-0400 Diastolic blood pressure 64 mm[Hg] Tresa Parkhof SALES EXECUTIVE.[employer] Work Phone: [facility] 03-11-2022 14:26-0400 Heart rate 62 /min Tresa Parkhof SALES EXECUTIVE.[employer] Work Phone: [facility] 03-11-2022 14:26-0400 Respiratory rate 14 /min Tresa Parkhof SALES EXECUTIVE.[employer] Work Phone: [facility] 03-11-2022 14:26-0400 Systolic blood pressure 106 mm[Hg] Tresa Parkhof SALES EXECUTIVE.[employer] Work Phone: [facility] 01-11-2022 13:23-0400 Body temperature 97.81 [degF] Becca Enmanuel SALES EXECUTIVE.[employer] Work Phone: [facility] 01-11-2022 13:23-0400 Body weight 96.34 kg Becca Mckeonk SALES EXECUTIVE.[employer] Work Phone: [facility] 01-11-2022 13:23-0400 Diastolic blood pressure 62 mm[Hg] Becca Enmanuel SALES EXECUTIVE.[employer] Work Phone: [facility] 01-11-2022 13:23-0400 Heart rate 65 /min Becca Enmanuel SALES EXECUTIVE.[employer] Work Phone: [facility] 01-11-2022 13:23-0400 Respiratory rate 21 /min Becca Enmanuel SALES EXECUTIVE.[employer] Work Phone: [facility] 01-11-2022 13:23-0400 SaO2% (BldA) [Mass fraction] 99 % Becca Mckeonk SALES EXECUTIVE.MONUMENTAL STONEMASON Work Phone: [facility] 01-11-2022 13:23-0400 Systolic blood pressure 102 mm[Hg] Becca Enmanuel SALES EXECUTIVE.MONUMENTAL STONEMASON Work Phone: [facility] 08-04-2018 12:36-0500 Body surface area Derived from formula [facility] 08-04-2018 12:11-0500 Body surface area Derived from formula [facility] Encounters Encounter Date Encounter Type Care Provider Facility Start: 08-05-2025 ambulatory Mary Singer Facility:[facility] Start: 08-02-2025 End: 08-02-2025 ambulatory ЕКАТЕРИНА RUI Facility:[facility] Start: 07-25-2025 End: 07-25-2025 ambulatory Zebulun Beam VSC Facility:[facility] [place] Start: 07-25-2025 End: 07-25-2025 ambulatory Zebulun Beam VSC Facility:[facility] [place] [facility] Start: 07-25-2025 End: 07-25-2025 ambulatory Zebulun Beam VSC Facility:[facility] Start: 07-16-2025 End: 07-16-[address] Timoteo Gardiner MD -Ultrasound [facility] Work Phone: Start: 07-16-2025 End: 07-16-2025 ambulatory Timoteo Gardiner Facility:[facility] Start: 07-15-2025 End: 07-15-2025 Emergency department patient visit Dr. Timoteo Gardiner MD -Emergency Department Work Phone: Start: 07-11-2025 End: 07-11-2025 Emergency department patient visit Dr. Brock Ruiz DO -Emergency Department Work Phone: Start: 06-26-2025 End: 06-26-[address] Shon Quintero MD Work Phone: -Laboratory Start: 06-26-2025 End: 06-26-2025 Patient encounter procedure OUT OF TOWN DOCTOR -Laboratory Work Phone: Start: 06-26-2025 End: 06-26-2025 ambulatory KARIS NASIM Facility:[facility] Start: 06-09-2025 End: 06-09-2025 Emergency department patient visit CESIA PUENTE MD [facility] Start: 05-29-2025 ambulatory [facility] Facility :[facility] Start: 05-20-2025 End: 05-20-2025 ambulatory [facility] Work Phone: -Laboratory Start: 05-20-2025 End: 05-20-2025 Patient encounter procedure Zebulun Beam SENIOR PROFESSIONAL SERVICES CONSULTANT-C -Laboratory Work Phone: Start: 05-20-2025 End: 05-20-2025 Zebulun Beam SENIOR PROFESSIONAL SERVICES CONSULTANT-C -Laboratory Work Phone: Start: 05-20-2025 End: 05-20-2025 ambulatory Zebulun Beam VSC Facility:[facility] Start: 05-15-2025 End: 05-15-[address] Son Adams MD -[facility] Work Phone: Start: 05-15-2025 End: 05-15-2025 Dr. Son Adams MD -[facility] Work Phone: Start: 05-15-2025 End: 05-15-2025 ambulatory [facility] Work Phone: -[facility] Start: 05-07-2025 End: 05-07-2025 ambulatory [facility] Work Phone: -Radiology [facility] Start: 05-07-2025 End: 05-07-2025 Patient encounter procedure Zebulun Beam SENIOR PROFESSIONAL SERVICES CONSULTANT-C -Radiology [facility] Work Phone: Start: 05-07-2025 End: 05-07-2025 Zebulun Beam SENIOR PROFESSIONAL SERVICES CONSULTANT-C -Radiology [facility] Work Phone: Start: 05-07-2025 End: 05-07-2025 ambulatory [facility] Facility:[facility] Start: 04-04-2025 End: 04-04-2025 Non-patient / Non-visit Dr. Azam Schneider MD -[facility] Work Phone: Start: 04-04-2025 End: 04-04-2025 ambulatory [facility] Work Phone: -Pulmonary Services/Neurology Start: 04-04-2025 End: 04-04-2025 Patient encounter procedure Zebulun Beam SENIOR PROFESSIONAL SERVICES CONSULTANT-C -Pulmonary Services/Neurology Work Phone: Start: 04-04-2025 End: 04-04-2025 Zebulun Beam SENIOR PROFESSIONAL SERVICES CONSULTANT-C -Pulmonary Services/Neurology Work Phone: Start: 04-04-2025 End: 04-04-[address] [facility] Facility:[facility] Start: 03-28-2025 End: 03-28-2025 Patient encounter procedure Mariah Benavidez Work Phone: Podiatry Comment on above: Onychomycosis (Prima ry Dx); Pain in toe of left foot; Pain in toe of right foot; Plantar fasciitis Start: 03-28-2025 End: 03-28-2025 ambulatory MARIAH BENAVIDEZ Facility:[facility] Start: 03-27-2025 End: 03-27-2025 ambulatory [facility] Work Phone: -Radiology [facility] Start: 03-27-2025 End: 03-27-2025 Patient encounter procedure Zebulun Beam SENIOR PROFESSIONAL SERVICES CONSULTANT-C -Radiology [facility] Work Phone: Start: 03-27-2025 End: 03-27-2025 Zebulun Beam SENIOR PROFESSIONAL SERVICES CONSULTANT-C -Radiology [facility] Work Phone: Start: 03-27-2025 End: 03-27-2025 ambulatory Zebulun Beam VSC Facility:[facility] Start: 03-20-2025 ambulatory Son Bryan Facility: [facility] Start: 03-15-2025 Non-patient / Non-visit Marcelina Blake nd DO [facility] Start: 03-15-2025 End: 03-15-2025 Admission to same day surgery center Marcelinahugo Foster DO -Endoscopy Work Phone: Start: 03-15-2025 End: 03-15-2025 Marcelinatimothy Foster DO -Endoscopy Work Phone: Start: 03-15-2025 End: 03-15-2025 ambulatory [facility] Work Phone: [facility] Work Phone: Start: 03-07-2025 End: 03-07-2025 ambulatory [facility] Work Phone: [facility] Work Phone: Start: 03-07-2025 End: 03-07-[address] Shon Quintero MD -Ultrasound [facility] Work Phone: Start: 03-07-2025 End: 03-07-2025 Dr. Shon Quintero MD -Ultrasound [facility] Work Phone: Start: 03-07-2025 End: 03-07-2025 ambulatory Shon Quintero Facility:[facility] Start: 03-05-2025 ambulatory Tresa Sandoval Facility :[facility] Start: 02-26-2025 End: 02-26-2025 Dr. Brock Ruiz DO -Emergency Department Work Phone: Start: 02-26-2025 End: 02-26-2025 Emergency department patient visit [facility] Work Phone: -Emergency Department Work Phone: Start: 02-26-2025 End: 02-26-2025 ambulatory [facility] Work Phone: [facility] Work Phone: Start: 02-26-2025 End: 02-26-2025 Patient encounter procedure Tresa Sandoval SENIOR PROFESSIONAL SERVICES CONSULTANT-C -Laboratory Nadia Hoyt Start: 02-26-2025 End: 02-26-2025 Tresa Sandoval SENIOR PROFESSIONAL SERVICES CONSULTANT-C -Laboratory Nadia Hoyt Start: 02-26-2025 End: 02-26-2025 ambulatory Tresa Sandoval Facility:[facility] Start: 02-21-2025 End: 02-22-2025 [facility] Work Phone: -Emergency Department Work Phone: Start: 02-21-2025 End: 02-22-2025 Emergency department patient visit [facility] Work Phone: -Emergency Department Work Phone: Start: 02-08-2025 End: 02-08-2025 Dr. Chris Ramos MD -Emergency Department Work Phone: Start: 02-08-2025 End: 02-08-2025 Emergency department patient visit [facility] Work Phone: -Emergency Department Work Phone: Start: 02-07-2025 End: 02-07-2025 ambulatory [facility] Work Phone: [facility] Work Phone: Start: 02-07-2025 End: 02-07-2025 Patient encounter procedure Tresa Sandoval SENIOR PROFESSIONAL SERVICES CONSULTANT-C -Laboratory Nadia Hoyt Start: 02-07-2025 End: 02-07-2025 Tresa Sandoval SENIOR PROFESSIONAL SERVICES CONSULTANT-C -Laboratory Nadia Hoyt Start: 02-07-2025 End: 02-07-2025 ambulatory Tresa Sandoval Facility:[facility] Start: 02-04-2025 ambulatory JUDIE~[id number] REJI K[address] [facility] Start: 02-04-2025 End: 02-04-2025 Dr. iMchi Cope DO -Emergency Departks nt Work Phone: Start: 02-04-2025 End: 02-04-2025 Emergency department patient visit [facility] Work Phone: -Emergency Department Work Phone: Start: 01-23-2025 End: 01-23-[address] Son Adams MD -[facility] Work Phone: Start: 01-23-2025 End: 01-23-2025 Dr. Sno Adams MD -[facility] Work Phone: Start: 01-23-2025 End: 01-23-2025 ambulatory [facility] Facility:[facility] Start: 01-17-2025 End: 01-17-2025 Emergency department patient visit DR BROOKLYN MIKE MD [facility] Start: 01-03-2025 ambulatory KATHARINA LJackie WELSH [facility] Start: 12-19-2024 End: 12-19-2024 ambulatory LYSSA FARRELL [facility] Start: 12-18-2024 End: 12-18-2024 ambulatory SELF~[id number] REFERRAL REFERRAL SELF [facility] Start: 12-18-2024 End: 12-18-2024 Subsequent hospital visit by physician Self Referral Work Phone: [facility] Comment on above: Visit for screening mammogram Start: 12-11-2024 ambulatory ANGE~[id number] DEREK ESPINOZA ANGE [facility] Start: 12-10-2024 End: 12-13-2024 ambulatory ANGE~[id number] DEREK ESPINOZA [facility] Start: 12-10-2024 End: 12-13-2024 Emergency department patient visit Leah Hector DO Work Phone: Clinical Decision Unit 6 Comment on above: Abdominal pain (Prim randi Dx); Ascites; Lower back pain; Cirrhosis of liver with ascites; Tobacco use disorder Start: 12-06-2024 End: 12-06-2024 ambulatory ANGE~[id number] DEREK ESPINOZA [facility] Start: 12-06-2024 End: 12-06-2024 Subsequent hospital visit by physician Max Rico MD Work Phone: [facility] Interventional Radiology Comment on above: Ascites Start: 11-29-2024 ambulatory ANGE~[id number] DEREK ESPINOZA ANGE [facility] Start: 11-28-2024 End: 11-28-2024 Subsequent hospital visit by physician Minda Gómez MD Work Phone: [facility] Interventional Radiology Comment on above: Ascites Start: 11-28-2024 End: 11-28-2024 ambulatory MINDA [facility] Start: 11-21-2024 ambulatory [facility] Start: 11-19-2024 End: 11-20-2024 Emergency department patient visit Lambert Veliz DO Work Phone: Emergency Department Comment on above: Viral syndrome (Prim randi Dx) Start: 11-13-2024 End: 11-13-2024 ambulatory NEEL ANAND [facility] Start: 11-09-2024 End: 11-09-2024 ambulatory ANGE~[id number] DEREK ESPINOZA [facility] Start: 11-08-2024 End: 11-08-2024 ambulatory ANGE~[id number] DEREK MONTGOMERY [facility] Start: 11-02-2024 ambulatory ANGE~[id number] DEREK ESPINOZA ANGE [facility] Start: 10-30-2024 End: 10-30-2024 ambulatory ANGE~[id number] DEREK ESPINOZA [facility] Start: 10-30-2024 End: 10-30-2024 Subsequent hospital visit by physician Minda Gómez MD Work Phone: [facility] Interventional Radiology Comment on above: Ascites Start: 10-19-2024 ambulatory ANGE~[id number] DEREK MONTGOMERY [facility] Start: 10-18-2024 End: 10-18-2024 ambulatory MD GINGER LOREDO) KE [facility] Start: 10-18-2024 End: 10-18-2024 Subsequent hospital visit by physician Ginger Milton MD Work Phone: [facility] Interventional Radiology Comment on above: Ascites Start: 10-17-2024 End: 10-17-2024 ambulatory LUCAS VILLANUEVA [facility] Start: 10-15-2024 End: 10-15-2024 Telephone encounter James Hendrix MD Work Phone: [facility] [place] Start: 10-15-2024 ambulatory MD GINGER LOREDO) KE [facility] Start: 10-10-2024 End: 10-10-2024 Telephone encounter James Hendrix MD Work Phone: [facility] [place] Start: 2024 ambulatory JUDIE~[id number] RE[address] JUDIE [facility] Start: 10-04-2024 End: 10-04-2024 Emergency department patient visit Pete Ponce MD Work Phone: Emergency Department Comment on above: Cirrhosis of liver ( CMS/HCC) (Primary Dx) Start: 10-03-2024 ambulatory NE DE GUZMAN [facility] Start: 10-03-2024 End: 10-03-2024 ambulatory MAX RICO [facility] Start: 10-03-2024 End: 10-03-2024 Subsequent hospital visit by physician Max Rico MD Work Phone: [facility] Interventional Radiology Comment on above: Ascites Start: 10-02-2024 ambulatory DESTINY~[id number] BEKAH DIXON [facility] Start: 09-28-2024 End: 09-28-2024 Emergency department patient visit Pete Ponce MD Work Phone: Emergency Department Comment on above: Chronic liver diseas e and cirrhosis (CMS/HCC) (Primary Dx); Thrombocytopenia (CMS/HCC) Start: 09-27-2024 End: 09-27-2024 ambulatory DESTINY~[id number] BEKAH GODFREY DESTINY [facility] Start: 09-27-2024 End: 09-27-2024 ambulatory MD GINGER MILTON (PAUL) [facility] Start: 09-27-2024 End: 09-27-2024 Subsequent hospital visit by physician Ginger Milton MD Work Phone: [facility] Interventional Radiology Comment on above: Ascites Start: 09-20-2024 End: 09-20-2024 ambulatory KATHARINA L. [facility] Start: 09-20-2024 End: 09-20-2024 ambulatory MINDA [facility] Start: 09-20-2024 End: 09-20-2024 Subsequent hospital visit by physician Minda Gómez MD Work Phone: [facility] Interventional Radiology Comment on above: Ascites Start: 09-13-2024 End: 09-13-2024 ambulatory MAX RICO [facility] Start: 09-13-2024 End: 09-13-2024 Subsequent hospital visit by physician Max Rico MD Work Phone: [facility] Interventional Radiology Comment on above: Ascites Start: 09-11-2024 End: 09-11-2024 ambulatory DESTINY~[id number] BEKAH GODFREY DESTINY [facility] Start: 09-05-2024 ambulatory KATHARINA L. [facility] Start: 09-01-2024 End: 09-09-2024 Evaluation and management of inpatient LEAH Thrasher KRUNAL [facility] Start: 08-31-2024 ambulatory MD GINGER MILTON (PAUL) [facility] Start: 08-30-2024 End: 08-30-2024 ambulatory MINDA GÓMEZ [facility] Start: 08-30-2024 End: 08-30-2024 Subsequent hospital visit by physician Minda Gómez MD Work Phone: [facility] Interventional Radiology Comment on above: Ascites Start: 08-22-2024 End: 08-22-2024 Evaluation and management of inpatient MAX RICO [facility] Start: 08-22-2024 End: 08-22-2024 ambulatory MAX RICO [facility] Start: 08-22-2024 End: 08-22-2024 Subsequent hospital visit by physician Max Rico MD Work Phone: [facility] Interventional Radiology Comment on above: Ascites Start: 08-16-2024 End: 08-16-2024 ambulatory MD [facility]INGER (PAUL) [facility] Start: 08-16-2024 End: 08-16-2024 Subsequent hospital visit by physician Ginger Milton MD Work Phone: [facility] Interventional Radiology Comment on above: Ascites Start: 08-13-2024 ambulatory MD GINGER (PAUL) KE [facility] Start: 08-09-2024 End: 08-09-2024 ambulatory MINDA GÓMEZ [facility] Start: 08-09-2024 End: 08-09-2024 Subsequent hospital visit by physician Minda Gómez MD Work Phone: [facility] Interventional Radiology Comment on above: Ascites Start: 08-08-2024 End: 08-08-2024 ambulatory JOSE ALEJANDRO [facility] Start: 08-02-2024 End: 08-02-2024 Subsequent hospital visit by physician Ginger Milton MD Work Phone: [facility] Interventional Radiology Comment on above: Ascites Start: 08-02-2024 End: 08-02-2024 ambulatory MD GINGER MILTON (PAUL) [facility] Start: 07-27-2024 ambulatory MARCELINA FOSTER [facility] Start: 07-26-2024 ambulatory MD GINGER (PAUL) KE [facility] Start: 07-26-2024 End: 07-26-2024 Emergency department patient visit Pete Ponce MD Work Phone: Emergency Department Comment on above: Alcoholic cirrhosis of liver with ascites (CMS/HCC) (Primary Dx) Start: 07-25-2024 ambulatory KATHARINA Alexander [facility] Start: 07-25-2024 End: 07-25-2024 [facility] Start: 07-19-2024 End: 07-19-2024 ambulatory MINDA [facility] Start: 07-19-2024 End: 07-19-2024 Subsequent hospital visit by physician Minda Gómez MD Work Phone: [facility] Comment on above: Ascites Start: 07-17-2024 ambulatory MINDA [facility] Start: 07-08-2024 End: 07-10-2024 ambulatory PROVIDER EXTERNAL [facility] Start: 07-08-2024 End: 07-10-2024 Emergency department patient visit Lambert Veliz DO Work Phone: General Medicine Comment on above: Ascites (Primary Dx) ; Amphetamine-type substance use disorder, severe (CMS/HCC) Start: 07-08-2024 ambulatory INFECTION CONTROL [facility] Start: 07-06-2024 ambulatory [facility] Start: 07-05-2024 End: 07-05-2024 Emergency department patient [...] (CMS/HCC) Start: 06-04-2024 Emergency department patient visit [facility] Facility:[facility] Start: 06-01-2024 End: 06-01-2024 Telephone encounter No Pcp SALES EXECUTIVE [facility] Comment on above: Patient Update Results Start: 05-31-2024 End: 05-31-2024 ambulatory Katelyn Park [facility] Start: 05-31-2024 End: 05-31-2024 Follow-up encounter Katelyn Park [facility] Comment on above: SPP Hepatology - Fol low-up (HCV+ lab test) Start: 05-23-2024 End: 05-24-2024 Telephone encounter Dacia Acosta MD Work Phone: [facility] [place] Comment on above: 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 [facility] Start: 05-22-2024 End: 05-22-2024 Telephone encounter Dacia Acosta MD Work Phone: [facility] [place] Comment on above: Lost medications Start: 05-17-2024 End: 05-17-2024 ambulatory Dacia Acosta MD Work Phone: [facility] [place] Comment on above: [facility] Start: 05-15-2024 End: 05-15-2024 Chart abstracting Erik Salas DO Work Phone: Hematology/Oncology Start: 05-15-2024 End: 05-15-2024 Telephone encounter Claribel Lagunas APRN.MONUMENTAL STONEMASON Work Phone: [facility] [place] Comment on above: Results Start: 05-11-2024 Telephone encounter Claribel jeffries APRN.MONUMENTAL STONEMASON Work Phone: [facility] [place] Comment on above: Results Start: 05-10-2024 End: 05-10-2024 Subsequent hospital visit by physician [facility] W[facility] (I-Stat) Work Phone: Cat Scan Start: 05-10-2024 End: 05-10-2024 Patient encounter procedure Claribel Lagunas APRN.MONUMENTAL STONEMASON Work Phone: [facility] [place] Comment on above: Diarrhea, unspecifie d type (Primary Dx); Kidney stone; Acute cystitis without hematuria; Cirrhosis of liver with ascites, unspecified hepatic cirrhosis type (HCC) (HCC); Possible exposure to STD; History of abnormal cervical Pap smear Start: 05-09-2024 Telephone encounter Lynn Kohler MD Work Phone: [facility] Comment on above: Results (Urine Cx mi xed) Start: 05-07-2024 End: 05-07-2024 Patient encounter procedure Therese Dowling APRN.[facility] Work Phone: [facility] Comment on above: Urinary frequency (P rimary Dx); Acute cystitis with hematuria; Abrasion of foot with infection, unspecified laterality, initial encounter; Skin lesion Start: 05-02-2024 Telephone encounter Dacia randhawa MD Work Phone: [facility] [place] Comment on above: Medication Question Start: 04-27-2024 Telephone encounter Franky culver MD Work Phone: Hematology/Oncology Start: 04-20-2024 End: 04-20-2024 Transitional care manage srvc 7 day discharge Mervin Ambrocio APRN.[facility] Work Phone: Family [facility] [place] Comment on above: Kidney stone (Primar y Dx); Acute cystitis without hematuria; Cirrhosis of liver with ascites, unspecified hepatic cirrhosis type (HCC) (HCC); Thrombocytopenia (HCC); Seasonal allergic rhinitis due to pollen Start: 04-17-2024 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 Family [facility] [place] Comment on above: Transition Of Care ( [facility] D/C 04/13/2024) Start: 03-23-2024 End: 03-23-2024 Emergency department patient visit CARLA MITCHELL DO [facility] Start: 02-29-2024 ambulatory Dacia brown MD Work Phone: Internal Medicine [place] [id number] Start: 02-07-2024 End: 02-07-2024 Patient encounter procedure Melisa Main MD Work Phone: Dermatology [place] Comment on above: Skin ulcer, limited to breakdown of skin (HCC) (Primary Dx); Excoriation (skin-picking) disorder; MRSA (methicillin resistant Staphylococcus aureus); Local infection of skin and subcutaneous tissue Start: 02-06-2024 ambulatory Dacia brown MD Work Phone: [facility] Comment on above: Hematuria Start: 02-02-2024 Telephone encounter Ashanti Ria YA Work Phone: [facility] Comment on above: Results Start: 01-31-2024 End: 01-31-2024 Office outpatient visit 25 minutes Ashanti Squires PA-C Work Phone: [facility] Comment on above: Skin sore (Primary D x); Gross hematuria; Acute cystitis with hematuria; Anxiety with depression Start: 01-19-2024 Refill Dacia brown MD Work Phone: [facility] Comment on above: Refill Request Start: 12-28-2023 End: 12-28-[address] Dacia Acosta Work Phone: [facility] Work Phone: Start: 12-28-2023 End: 12-28-2023 Dr. Dacia Acosta Work Phone: [facility]-Endoscopy Work Phone: Start: 12-13-2023 End: 12-13-2023 Office outpatient visit 15 minutes Mervin Ambrocio APRN.CNP Work Phone: [facility] Comment on above: Chronic hepatitis C without hepatic coma (HCC) (Primary Dx); Cirrhosis of liver with ascites, unspecified hepatic cirrhosis type (HCC) (HCC); Other ascites; Nausea and vomiting, unspecified vomiting type Start: 12-12-2023 Telephone encounter Dacia randhawa MD Work Phone: [facility] Comment on above: Appointment; Patient Update Start: 12-09-2023 End: 12-09-2023 Emergency department patient visit Dr. Dacia Acosta Work Phone: [facility] Work Phone: Start: 12-09-2023 End: 12-09-2023 Dr. Dacia Acosta Work Phone: [facility]-Emergency Department Work Phone: Start: 12-07-2023 Dr. Dacia zhou Work Phone: [facility] Work Phone: Start: 12-07-2023 ambulatory Priscilla hoffman RN Work Phone: [employer] Start: 12-07-2023 Dr. Dacia zhou Work Phone: [facility] Start: 12-06-2023 Dr. Dacia zhou Work Phone: [facility] Work Phone: Start: 12-06-2023 Dr. Dacia zhou Work Phone: [facility] Start: 12-05-2023 Dr. Dacia zhou Work Phone: [facility] Start: 12-05-2023 Dr. Dacia zhou Work Phone: [facility] Start: 12-04-2023 End: 12-07-2023 Evaluation and management of inpatient Dr. Dacia Acosta Work Phone: [facility] Work Phone: Start: 12-04-2023 End: 12-07-2023 Dr. Dacia Acosta Work Phone: [facility] Work Phone: Start: 11-28-2023 Telephone encounter Dacia randhawa MD Work Phone: Family [facility] Comment on above: Results Start: 11-26-2023 End: 11-26-2023 Patient encounter procedure Dacia Acosta MD Work Phone: [facility] [place] Comment on above: Cirrhosis of liver w ith ascites, unspecified hepatic cirrhosis type (HCC) (HCC) (Primary Dx); Recurrent UTI (urinary tract infection); Chronic hepatitis C without hepatic coma (HCC); Nicotine use disorder, F17.2; Gastroesophageal reflux disease, unspecified whether esophagitis present; Major depressive disorder, remission status unspecified, unspecified whether recurrent Start: 11-25-2023 ambulatory Priscilla hofmfan RN Work Phone: Geometrician Management Start: 11-24-2023 Patient Outreach Soco johnson [facility] Work Phone: Pharmacy Comment on above: Transition Of Care ( TCM Pharmacy-Hospital discharge 11/23/23) Start: 11-18-2023 End: 11-23-2023 Evaluation and management of inpatient KOKO RUIZ Facility:[id number] Start: 11-17-2023 End: 11-18-2023 Emergency department patient visit DACIA ACOSTA Facility:[facility] Start: 11-11-2023 Telephone encounter Dacia randhawa MD Work Phone: [facility] Comment on above: Patient Update Start: 11-10-2023 End: 11-10-2023 Emergency department patient visit Dr. Dacia Acosta Work Phone: [facility] Work Phone: Start: 11-10-2023 End: 11-10-2023 Dr. Dacia Acosta Work Phone: [facility] Work Phone: Start: 11-07-2023 Telephone encounter Dacia randhawa MD Work Phone: [facility] Comment on above: Abdominal Pain Start: 11-07-2023 End: 11-07-2023 Emergency department patient visit Dr. Dacia Acosta Work Phone: [facility] Work Phone: Start: 11-07-2023 End: 11-07-2023 Dr. Dacia Acosta Work Phone: [facility] Work Phone: Start: 11-05-2023 End: 11-05-2023 Emergency department patient visit Dr. Dacia Acosta Work Phone: [facility] Work Phone: Start: 11-05-2023 End: 11-05-2023 Dr. Dacia Acosta Work Phone: [facility] Work Phone: Start: 11-03-2023 Telephone encounter Dacia randhawa MD Work Phone: [facility] [place] Comment on above: Patient Question Start: 11-01-2023 End: 11-01-2023 Patient encounter procedure Latasha William PA-C Work Phone: [facility] Comment on above: Open wound of skin ( Primary Dx) Start: 2023 Non-patient / Non-visit Dr. Benton Acosta Work Phone: [facility] Work Phone: Start: 2023 Dr. Dacia zhou Work Phone: [facility] Work Phone: Start: 10-07-2023 End: 2023 Evaluation and management of inpatient Dr. Dacia Acosta Work Phone: [facility] Work Phone: Start: 10-07-2023 Non-patient / Non-visit Dr. Benton Acosta Work Phone: [facility] Work Phone: Start: 10-07-2023 Dr. Dacia zhou Work Phone: [facility] Work Phone: Start: 10-06-2023 End: 2023 Evaluation and management of inpatient Dr. Dacia Acosta Work Phone: [facility] Work Phone: Start: 10-06-2023 Non-patient / Non-visit Dr. Benton Acosta Work Phone: [facility] Work Phone: Start: 10-06-2023 End: 2023 Dr. Dacia Acosta Work Phone: [facility] 3 Work Phone: Start: 09-24-2023 End: 09-25-2023 Emergency department patient visit Dr. Dacia Acosta Work Phone: [facility] Work Phone: Start: 09-24-2023 End: 09-25-2023 Dr. Dacia Acosta Work Phone: [facility] Work Phone: Start: 09-16-2023 Telephone encounter Emperatriz Chacon [facility] Clinical Communication Start: 09-09-2023 End: 09-15-2023 Evaluation and management of inpatient [facility] Start: 09-09-2023 End: 09-15-2023 Evaluation and management of inpatient Lenny Macdonald MD Work Phone: [facility] 7W Comment on above: Small bowel obstruct ion (HCC) (Primary Dx) Start: 08-22-2023 End: 08-22-2023 Emergency department patient visit Dr. Dacia Acosta Work Phone: [facility] Work Phone: Start: 08-22-2023 End: 08-22-2023 Dr. Dacia Acosta Work Phone: [facility] Work Phone: Start: 08-15-2023 Non-patient / Non-visit Dr. Benton Acosta Work Phone: [facility] Start: 08-15-2023 Dr. Dacia zhou Work Phone: [facility] Start: 08-15-2023 End: 08-15-[address] Dacia Acosta Work Phone: [facility] Work Phone: Start: 08-15-2023 End: 08-15-[address] Dacia Acosta Work Phone: [facility] Work Phone: Start: 08-15-2023 End: 08-15-2023 Dr. Dacia Acosta Work Phone: [facility] Work Phone: Start: 07-22-2023 End: 07-22-[address] Dacia Acosta Work Phone: [facility] Work Phone: Start: 07-22-2023 End: 07-22-2023 Dr. Dacia Acosta Work Phone: [facility] Work Phone: Start: 07-21-2023 Non-patient / Non-visit Dr. Benton Acosta Work Phone: [facility] Start: 07-21-2023 Dr. Dacia zhou Work Phone: [facility] Start: 07-21-2023 Non-patient / Non-visit Dr. Benton Acosta Work Phone: [facility] Work Phone: Start: 07-21-2023 Dr. Dacia zhou Work Phone: [facility] Work Phone: Start: 07-20-2023 End: 07-21-2023 Evaluation and management of inpatient [facility] Work Phone: Start: 07-20-2023 End: 07-21-[address] Dacia Acosta Work Phone: [facility] Work Phone: Start: 07-20-2023 End: 07-21-2023 Dr. Dacia Acosta Work Phone: [facility] 2 Work Phone: Start: 04-25-2023 End: 04-25-2023 Emergency department patient visit [facility] Work Phone: Start: 03-22-2023 Refill Dacia brown MD Work Phone: [facility] Comment on above: Refill Request Start: 01-27-2023 Telephone encounter Dacia randhawa MD Work Phone: [facility] Comment on above: Medication Request Start: 01-25-2023 Documentation procedure Mammog uriel Coordinator [facility] Start: 01-25-2023 Letter encounter Mammography Coordinator [facility] Department Start: 01-25-2023 Telephone encounter Divya andino MD Work Phone: Mammography Comment on above: Mammogram Result Brayden l Back Start: 01-24-2023 End: 01-24-2023 Subsequent hospital visit by physician Screen Mammo [facility] Comment on above: Encounter for screen ing mammogram for breast cancer [Z12.31] Start: 12-02-2022 End: 12-02-2022 Patient encounter procedure Joselito GARCIA Work Phone: [facility] Comment on above: Skin infection (Prim randi Dx) Start: 10-02-2022 Telephone encounter Kaylin song SALES EXECUTIVE.MONUMENTAL STONEMASON Work Phone: [facility] Comment on above: Results Start: 09-29-2022 End: 09-29-2022 Patient encounter procedure Lynn Prabhakar MD Work Phone: [facility] Comment on above: Cellulitis of chin ( Primary Dx); Picking own skin; URI, acute Start: 09-15-2022 End: 09-15-[address] Dacia Acosta Work Phone: [facility] Work Phone: Comment on above: Population Health Na vigation Outreach (HCC Gap/Medicaid) Start: 09-15-2022 Non-patient / Non-visit Dr. Benton Acosta Work Phone: [facility] Start: 09-15-2022 End: 09-15-2022 Admission to same day surgery center Dr. Dacia Acosta Work Phone: [facility] Start: 08-27-2022 End: 08-27-[address] Dacia Acosta Work Phone: [facility] Work Phone: Start: 08-27-2022 End: 08-27-[address] Dacia Acosta Work Phone: [facility] Start: 08-27-2022 End: 08-27-[address] Dacia Acosta Work Phone: [facility] Start: 06-22-2022 Refill Tresa Sandoval APRN.CNP Work Phone: [facility] Comment on above: Refill Request Start: 05-24-2022 ambulatory Dacia brown MD Work Phone: [facility] Start: 05-24-2022 Telephone encounter Dacia randhawa MD Work Phone: [facility] Comment on above: er follow up cristian layne Transition Of Care Start: 05-21-2022 Non-patient / Non-visit Dr. Benton Acosta Work Phone: [facility] Start: 05-20-2022 Non-patient / Non-visit Dr. Benton Acosta Work Phone: [facility] Start: 05-19-2022 End: 05-21-2022 Evaluation and management of inpatient [facility] 3 Start: 05-15-2022 End: 05-15-2022 Emergency department patient visit [facility] Start: 05-15-2022 ambulatory Diya Feliciano RN NURSE O N CALL Comment on above: Abscess; Headache Start: 05-10-2022 End: 05-10-2022 Patient encounter procedure Dacia Acosta MD Work Phone: [facility] Comment on above: Dermatitis (Primary Dx) Start: 05-09-2022 End: 05-09-2022 Patient encounter procedure Blanca Dawson APRN.MONUMENTAL STONEMASON Work Phone: [facility] Comment on above: Wound check, abscess (Primary Dx) Start: 05-07-2022 Telephone encounter Hugo santana PA-C Work Phone: [facility] Comment on above: Patient Question Start: 03-24-2022 ambulatory Dacia brown MD Work Phone: [facility] Start: 03-11-2022 End: 03-11-2022 Patient encounter procedure Tresa Sandoval SALES EXECUTIVE.MONUMENTAL STONEMASON Work Phone: [facility] Comment on above: Bacterial skin infec tion (Primary Dx); Acne vulgaris; Chronic midline low back pain with bilateral sciatica Start: 03-11-2022 Telephone encounter Dacia randhawa MD Work Phone: [facility] Comment on above: Refill Request Start: 01-12-2022 Telephone encounter Blanca Dawson APRN.MONUMENTAL STONEMASON Work Phone: [facility] Comment on above: Results Start: 01-11-2022 End: 01-11-2022 Patient encounter procedure Becca Singer SALES EXECUTIVE.MONUMENTAL STONEMASON Work Phone: [facility] Comment on above: Viral illness (Prima ry Dx) Start: 08-04-2018 End: 08-04-2018 Patient encounter procedure [facility] Procedures Date Procedure Procedure Detail Performing Clinician Start: 07-25-2025 Hepatitis C viral load Zebulun Beam SENIOR PROFESSIONAL SERVICES CONSULTANT-C Work Phone: Comment on above: Result Units: log10 IU/mL Start: 07-25-2025 Hepatitis C virus genotype determination Zebulun Beam SENIOR PROFESSIONAL SERVICES CONSULTANT-C Work Phone: Comment on above: Performed at: [facility] [id number] [place], [place] [id number] Director: Tee Reyna PhD, Phone: [phone] at: - [facility] [address] [id number] Director: Michelle Rose MD, Phone: [phone] Start: 07-16-2025 Ultrasonography of abdomen Zebulun Beam SENIOR PROFESSIONAL SERVICES CONSULTANT-C Work Phone: Start: 07-15-2025 Urnls dip stick/tablet reagent auto microscopy Zebulun Beam SENIOR PROFESSIONAL SERVICES CONSULTANT-C Work Phone: Start: 07-15-2025 Estimated creatinine clearance Zebulun B eam SENIOR PROFESSIONAL SERVICES CONSULTANT-C Work Phone: Start: 07-11-2025 Radex spine lumbosacral 2/3 views Zebulu n Beam SENIOR PROFESSIONAL SERVICES CONSULTANT-C Work Phone: Start: 07-11-2025 Estimated creatinine clearance Zebulun B eam SENIOR PROFESSIONAL SERVICES CONSULTANT-C Work Phone: Start: 07-11-2025 Methadone measurement, urine Zebulun Joseline m SENIOR PROFESSIONAL SERVICES CONSULTANT-C Work Phone: Start: 07-11-2025 Urnls dip stick/tablet reagent auto microscopy Zebulun Beam SENIOR PROFESSIONAL SERVICES CONSULTANT-C Work Phone: Start: 05-20-2025 Blood count smear mcrscp w/mnl difrntl wbc count [facility] Work Phone: Start: 05-20-2025 Calculation of international normalized ratio [facility] Work Phone: Start: 05-20-2025 Mean corpuscular hemoglobin concentration determination [facility] Work Phone: Start: 05-20-2025 Nucleated red blood cell count procedure [facility] Work Phone: Start: 05-20-2025 Platelet mean volume determination [facility] Work Phone: Start: 05-20-[address] Shon Quintero MD Work Phone: Comment on above: Test Ordered: [id number] Autoimmune Liver Pr ofile (RDL)Anti-Nuclear Ab by IFA (RDL) Positive [A ] ESECF Reference Range: NegativeHomogeneous Pattern SENIOR PROFESSIONAL SERVICES CONSULTANT NOLAB Reference Range: .Nucleolar Pattern SENIOR PROFESSIONAL SERVICES CONSULTANT NOLAB Reference Range: .Speckled Pattern 1:320 [H ] ESECF Reference Range: <1:40Centromere Pattern SENIOR PROFESSIONAL SERVICES CONSULTANT NOLAB Reference Range: .Spindle Apparatus Pattern SENIOR PROFESSIONAL SERVICES CONSULTANT NOLAB Reference Range: .Nuclear Membrane Pattern SENIOR PROFESSIONAL SERVICES CONSULTANT NOLAB Reference Range: .Midbody Pattern SENIOR PROFESSIONAL SERVICES CONSULTANT NOLAB Reference Range: .Nuclear Dot Pattern SENIOR PROFESSIONAL SERVICES CONSULTANT NOLAB Reference Range: .PCNA Pattern SENIOR PROFESSIONAL SERVICES CONSULTANT NOLAB Reference Range: .Centriole Pattern SENIOR PROFESSIONAL SERVICES CONSULTANT NOLAB Reference Range: .Note: Comment ESECF Reference [...] 20 - 60 Strong Positive: >60Performed at: [facility] [id number] [place], [place] [id number] Director: Anjelica Carney MD, Phone: [phone] at: [facility] [id number] [place], [place] [id number] Director: Tee Reyna PhD, Phone: [phone] Test Ordered: [id number] Primary Biliary Cholangitis PrAnti-Nuclear Ab by IFA (RDL) Positive [A ] ESECF Reference Range: NegativeHomogeneous Pattern SENIOR PROFESSIONAL SERVICES CONSULTANT NOLAB Reference Range: .Nucleolar Pattern SENIOR PROFESSIONAL SERVICES CONSULTANT NOLAB Reference Range: .Speckled Pattern 1:160 [H ] ESECF Reference Range: <1:40Centromere Pattern SENIOR PROFESSIONAL SERVICES CONSULTANT NOLAB Reference Range: .Spindle Apparatus Pattern SENIOR PROFESSIONAL SERVICES CONSULTANT NOLAB Reference Range: .Nuclear Membrane Pattern SENIOR PROFESSIONAL SERVICES CONSULTANT NOLAB Reference Range: .Midbody Pattern SENIOR PROFESSIONAL SERVICES CONSULTANT NOLAB Reference Range: .Nuclear Dot Pattern SENIOR PROFESSIONAL SERVICES CONSULTANT NOLAB Reference Range: .PCNA Pattern SENIOR PROFESSIONAL SERVICES CONSULTANT NOLAB Reference Range: .Centriole Pattern SENIOR PROFESSIONAL SERVICES CONSULTANT NOLAB Reference Range: .Note: Comment ESECF Reference Range: .DEISY performed by Indirect Fluorescent Antibody (IFA)Anti-Mitochondrial Ab by IFA <1:20 ESECF Reference Range: <1:20Anti-Mitochondrial M2 Ab (RDL) <20 Units ESECF Reference Range: <20 Negative: <20 Equivocal: 20 - 25 Positive: >[id number] Ab (RDL) <20 Units ESECF Reference Range: <[id number] Ab (RDL) <20 Units ESECF Reference Range: <20Anti-Smooth Muscle Ab by IFA 1:80 [H ] ESECF Reference Range: <1:20Performed at: [facility] - [facility] [id number] [place], [place] [id number] Director: Anjelica Carney MD, Phone: [phone] at: [facility] [address] [id number] Director: Tee Reyna PhD, Phone: [phone] Start: 05-07-2025 Plain x-ray of humerus [facility] Work Phone: Start: 05-07-2025 XR forearm, 2 views [facility] Work Phone: Start: 03-27-2025 X-ray of chest, PA and lateral views [facility] Work Phone: Start: 03-27-2025 Blood count smear mcrscp w/mnl difrntl wbc count [facility] Work Phone: Start: 03-27-2025 Mean corpuscular hemoglobin concentration determination [facility] Work Phone: Start: 03-27-2025 Nucleated red blood cell count procedure [facility] Work Phone: Start: 03-27-2025 Platelet mean volume determination [facility] Work Phone: Start: 03-15-2025 Esophagogastroduodenoscopy [facility] Work Phone: Start: 03-07-2025 Albumin/Globulin ratio [facility] Work Phone: Start: 03-07-2025 Nnafc-3-Ftnsbdzjlje measurement [facility] Work Phone: Comment on above: [facility] Electrochemiluminescen ce Immunoassay(ECLIA)Values obtained with different assay methods or kits cannotbe used interchangeably. Results cannot be interpreted asabsolute evidence of the presence or absence of malignantdisease.This test is not interpretable in females. Start: 03-07-2025 DEISY measurement [facility] Work Phone: Comment on above: Performed at: [facility] [employer] [facility] [id number] Director: Tee Reyna PhD, Phone: [phone] Start: 03-07-2025 Antibody to centromere measurement [facility] Work Phone: Comment on above: Test not performed Start: 03-07-2025 Antibody to extractable nuclear antigen measurement [facility] Work Phone: Comment on above: Test not performed Start: 03-07-2025 Antibody to THANIA-1 measurement [facility] Work Phone: Comment on above: Test not performed Start: 03-07-2025 Antibody to lupus La protein measurement [facility] Work Phone: Comment on above: Test not performed Start: 03-07-2025 Antibody to SS-A measurement [facility] Work Phone: Comment on above: Test not performed Start: 03-07-2025 Autoantibody measurement [facility] Work Phone: Comment on above: Test not performed Start: 03-07-2025 Blood count smear mcrscp w/mnl difrntl wbc count [facility] Work Phone: Start: 03-07-2025 CA 125 measurement [facility] Work Phone: Start: 03-07-2025 Calculation of international normalized ratio [facility] Work Phone: Start: 03-07-2025 Ceruloplasmin measurement [facility] Work Phone: Start: 03-07-2025 Copper measurement, serum [facility] Work Phone: Comment on above: Detection Limit = 5 Start: 03-07-2025 Hepatitis A virus antibody, IgM type [facility] Work Phone: Comment on above: A negative anti-HAV IgM result suggests no recent orcurrent HAV infection. Start: 03-07-2025 Hepatitis B core antibody measurement, IgM type [facility] Work Phone: Start: 03-07-2025 Hepatitis C antibody measurement [facility] Work Phone: Comment on above: Client Requested Flag Start: 03-07-2025 Hepatitis C viral load Dr. Shon Quintero MD Work Phone: Comment on above: Result Units: log10 IU/mL Start: 03-07-2025 Hepatitis C virus RNA assay [facility] Work Phone: Start: 03-07-2025 Iadna hepatitis c quant & reverse law researcher [facility] Work Phone: Comment on above: Result Units: log10 IU/mL Start: 03-07-2025 Immunoglobulin G subclass, G4 measurement [facility] Work Phone: Start: 03-07-2025 Immunoglobulin M measurement [facility] Work Phone: Start: 03-07-2025 Mean corpuscular hemoglobin concentration determination [facility] Work Phone: Start: 03-07-2025 Measurement of haptoglobin [facility] Work Phone: Comment on above: Performed at: [facility] [address] [id number] Director: Tee Reyna PhD, Phone: [phone] at: [facility] [id number] [place], [place] [id number] Director: Michelle Rose MD, Phone: [phone] Start: 03-07-2025 Nucleated red blood cell count procedure [facility] Work Phone: Start: 03-07-2025 Platelet mean volume determination [facility] Work Phone: Start: 03-07-2025 COMPETITIVE INTELLIGENCE MANAGER antibody measurement [facility] Work Phone: Comment on above: Test not performed Start: 03-07-2025 Total cholesterol:HDL ratio measurement [facility] Work Phone: Start: 03-07-2025 Total iron binding capacity measurement [facility] Work Phone: Start: 03-07-2025 Urine lambda light chain measurement [facility] Work Phone: Start: 03-07-2025 Vitamin D, 25-hydroxy measurement [facility] Work Phone: Comment on above: Vitamin D StatusDeficiency: <20 ng/mL (5 0nmol/L)Insufficiency: 20-30 ng/mL (50-75 nmol/L)Sufficiency: 30-100 ng/mL (75-250 nmol/L)Toxicity: >100 ng/mL (>250 nmol/L) Start: 03-07-2025 Ultrasonography of abdomen [facility] Work Phone: Start: 02-26-2025 Procedure [facility] Work Phone: Comment on above: Test Ordered: [id number] Drug Screen 7 w/Con f, WBETHYL ALCOHOL, [...] was developed and its performance characteristicsdetermined by [employer]. It has not been cleared or approvedby the Food and Drug Administration.Oxycodones Confirmation Positive MX Reference Range: .Oxycodone 28.7 ng/mL MX Reference Range: .Oxymorphone Negative ng/mL MX Reference Range: .Expected metabolism of oxycodone class drugs: Parent Drug Detected Metabolites Oxycodone: Oxymorphone Oxymorphone: NoneConfirmation threshold: 1.0 ng/mLPerformed at: [facility] [address] [place] [id number] Director: Anahi Rueda [facility], Phone: [phone] at: [facility] [id number] [place], [place] [id number] Director: Tee Reyna PhD, Phone: [phone] Start: 02-26-2025 Blood count smear mcrscp w/mnl difrntl wbc count [facility] Work Phone: Start: 02-26-2025 Mean corpuscular hemoglobin concentration determination [facility] Work Phone: Start: 02-26-2025 Nucleated red blood cell count procedure [facility] Work Phone: Start: 02-26-2025 Platelet mean volume determination [facility] Work Phone: Start: 02-22-2025 Blood count smear mcrscp w/mnl difrntl wbc count [facility] Work Phone: Start: 02-22-2025 Estimated creatinine clearance [facility] Work Phone: Start: 02-22-2025 Mean corpuscular hemoglobin concentration determination [facility] Work Phone: Start: 02-22-2025 Nucleated red blood cell count procedure [facility] Work Phone: Start: 02-22-2025 Platelet mean volume determination [facility] Work Phone: Start: 02-22-2025 Triacylglycerol lipase measurement [facility] Work Phone: Start: 02-21-2025 CT of abdomen and pelvis without contrast [facility] Work Phone: Start: 02-21-2025 X-ray of chest, PA and lateral views [facility] Work Phone: Start: 02-07-2025 Blood count smear mcrscp w/mnl difrntl wbc count [facility] Work Phone: Start: 02-07-2025 Mean corpuscular hemoglobin concentration determination [facility] Work Phone: Start: 02-07-2025 Nucleated red blood cell count procedure [facility] Work Phone: Start: 02-07-2025 Platelet mean volume determination [facility] Work Phone: Start: 02-04-2025 Computed tomography of abdomen and pelvis with intravenous contrast [facility] Work Phone: Start: 02-04-2025 Blood count smear mcrscp w/mnl difrntl wbc count [facility] Work Phone: Start: 02-04-2025 Estimated creatinine clearance [facility] Work Phone: Start: 02-04-2025 Mean corpuscular hemoglobin concentration determination [facility] Work Phone: Start: 02-04-2025 Nucleated red blood cell count procedure [facility] Work Phone: Start: 02-04-2025 Platelet mean volume determination [facility] Work Phone: Start: 02-04-2025 Triacylglycerol lipase measurement [facility] Work Phone: Start: 12-18-2024 Screening mammography bi 2-view breast inc cad Self Referral Work Phone: Start: 12-18-2024 Mammography MD [facility] ([place]) Start: 12-13-2024 CBC W/DIFFERENTIAL Tommie New MD Work Phone: Start: 12-13-2024 Comprehensive metabolic 2000 panel - Serum or Plasma Tommie New MD Work Phone: Start: 12-12-2024 Mri abdomen w/o & w/contrast material Lyssa Farrell SALES EXECUTIVE Work Phone: Start: 12-12-2024 CBC W/DIFFERENTIAL Tommie [...] abdominal real time w/image limited Miranda Marques SALES EXECUTIVE Work Phone: Start: 12-10-2024 Abdom paracentesis dx/ther [...] Milton MD Work Phone: Start: 12-10-2024 NON FISH PROCESSOR CASES Ginger Milton MD Work Phone: Start: [...] [Enzymatic activity/volume] in Serum or Plasma Leah Hector DO Work Phone: Start: 12-10-2024 PROCALCITONIN, QN, S Leah Hector DO Work Phone: Start: 12-10-2024 Basic metabolic [...] Start: 11-19-2024 Radiologic exam chest 2 views Lmabert padgett DO Work Phone: Start: 10-04-2024 Radiologic exam [...] MD Work Phone: Start: 09-28-2024 Comprehensive metabolic 1999 panel - Serum or [...] Platelet poor plasma by Coagulation assay Pete Pnoce MD Work Phone: Start: 07-10-2024 CBC W/DIFFERENTIAL [...] 2000 panel - Serum or Plasma River rAguelles MD Work Phone: Start: 07-08-2024 CBC W/DIFFERENTIAL Lambert Veliz DO Work Phone: Start: 07-08-2024 Comprehensive metabolic 2000 panel - Serum or Plasma Lambert Veliz DO Work Phone: Start: 07-08-2024 PT and aPTT panel - Platelet poor plasma by Coagulation assay Lambert Veliz Work Phone: Start: 07-05-2024 CBC W/DIFFERENTIAL Pete [...] stick/tablet rgnt auto w/o microscopy Claribel Lagunas APRN.MONUMENTAL STONEMASON Work Phone: Start: 05-07-2024 Urnls dip stick/tablet rgnt auto w/o microscopy Blanca Dawson APRN.MONUMENTAL STONEMASON Work Phone: Start: 01-31-2024 End: 01-31-2024 Cul bact xcpt urine blood/stool aerobic isol Ashanti GARCIA-C Work Phone: Start: 01-31-2024 Urnls dip stick/tablet rgnt auto w/o microscopy Ashanti GARCIA-Nuvia Work Phone: Start: 12-28-[address] Dacia herbert Work Phone: Start: 12-09-2023 Diagnostic radiography of abdomen Dr. Benton Acosta Work Phone: Start: 12-05-2023 Anaerobic microbial [...] 11-05-2023 SARS-CoV-2, Influenza & RSV (PCR) Dr. Benton Acosta Work Phone: Start: 11-05-2023 Urine culture [...] 09-24-2023 SARS-CoV-2, Influenza & RSV (PCR) Dr. Benton Acosta Work Phone: Start: 09-24-2023 Dr. Dacia [...] Plain chest X-ray Ligation of fallopian tube C [facility]ERA Respiratory Panel (PCR) Dr. Dacia Acosta Work Phone: Urine culture Dr. Dacia zhou Work Phone: Viral antigen assay Plan of Treatment Date Care Activity Detail Author Start: 2033 RSV Immunization aged 60 or older (1 - 1-dose 60+ series) RSV Immunization aged 60 or older (1 - 1-dose 60+ series) [facility] Start: 07-20-2033 DTAP/TDAP/TD VACCINE (2 - Td or Tdap) DTAP/TDAP/TD VACCINE (2 - Td or Tdap) [facility] Start: 07-20-2033 DTaP/Tdap/Td Vaccines (2 - Td or Tdap) DTaP/Tdap/Td Vaccines (2 - Td or Tdap) [facility] Start: 07-20-2033 Urine microalbumin profile DTaP,Tdap,Td Vaccine (2 - Td or Tdap) [facility] Start: 06-04-2027 Diabetes Screening Diabetes Screening [facility] Start: 05-10-2027 Diabetes Screening Diabetes Screening [facility] Start: 11-23-2026 Diabetes Screening Diabetes Screening [facility] Start: 09-15-2026 Diabetes Screening Diabetes Screening [facility] Start: 12-19-2025 Screening for malignant neoplasm of breast ANNUAL MAMMOGRAM [facility] Start: 07-25-2025 End: 07-25-2025 Patient encounter procedure Departed Clinical -Laboratory Work Phone: Start: 07-25-2025 End: 07-25-2025 Patient encounter procedure Thrombocytopenia -[facility] Work Phone: Start: 07-25-2025 X-ray of lumbosacral spine L/S Spine Bending Flex/Ext [facility] Start: 07-25-2025 End: 07-25-2025 Patient encounter procedure -[facility] Work Phone: Start: 07-16-2025 Ultrasonography of abdomen Abdomen Limited [facility] Start: 07-16-2025 End: 07-16-2025 Patient encounter procedure Departed Clinical -Ultrasound [facility] Work Phone: Start: 07-15-2025 [facility] Start: 07-15-2025 End: 07-15-2025 Emergency department patient visit Departed Emergency -Emergency Department Work Phone: Start: 07-11-2025 [facility] Start: 05-27-2025 Influenza vaccination Influ[facility] Start: 05-20-2025 Procedure [facility] Start: 03-15-2025 Endoscopy upper small intestine w/biopsy [facility] Start: 03-15-2025 Patient discharge [facility] Start: 03-07-2025 Gamma glutamyl transferase measurement [facility] Start: 03-07-2025 IgG subclass panel [Mass/volume] - Serum [facility] Start: 03-07-2025 Serum immunofixation [facility] Start: 02-26-2025 End: 02-26-2025 [facility] Start: 02-26-2025 Procedure [facility] Start: 02-26-2025 Assay of ammonia [facility] Start: 02-26-2025 Assay of thyroid stimulating hormone tsh [facility] Start: 02-26-2025 Blood count complete auto&auto difrntl wbc [facility] Start: 02-26-2025 Collection venous blood venipuncture [facility] Start: 02-26-2025 Comprehensive metabolic panel [facility] Start: 02-26-2025 Control nasal hemorrhage anterior simple [facility] Start: 02-22-2025 [facility] Start: 02-05-2025 End: 02-05-2025 Patient encounter procedure 02/05/2025 11:00 AM EDT Office Visit [address] [place] [address] Destiny Godfrey MD [address] [place] [address] Judie Gill APRN [address] [place] [address] [facility] Start: 02-04-2025 [facility] Start: 01-14-2025 Subsequent hospital visit by physician 01/14/2025 Hospital Encounter Endoscopy [address] [place] [address] Katharina Welsh MD [address] [facility] [address] [place] [address] Endoscopy Start: 12-18-2024 End: 12-18-2024 Patient encounter procedure 12/18/2024 11:30 AM EDT [facility]ointment [facility] [address] [place] [address] Referral, Self [address] [place] [address] [facility] Start: 12-17-2024 End: 12-17-2024 Patient encounter procedure 12/17/2024 3:00 PM EDT Office Visit [facility] [address] [place] [address], [address] [place] [address] Lyssa Farrell APRN [address] [place] [id number] [facility] Start: 11-29-2024 Subsequent hospital visit by physician 11/29/2024 Hospital Encounter Endoscopy [address] [place] [address] Katharina Welsh MD [address] [place] [address] Endoscopy Start: 11-08-2024 End: 11-08-2024 Patient encounter procedure 11/08/2024 11:40 AM EST Office Visit Hubbard Arun Diaz [address] [facility] [place] [address] Destiny Godfrey MD [address] [facility] [place] [address] Judie Gill APRN [address] [place] [address] [facility] Oncology Joe Start: 10-24-2024 End: 10-24-2024 Patient encounter procedure 10/24/2024 2:30 PM EST Office Visit Gastroenteroracio Justin [address] [place] [address] James Hendrix MD [address] [place], [place] [id number] cirrhosis with Ascites, saw local GI and they referred back to Gastroenterology [facility] Comment on above: cirrhosis with Ascites, saw local GI and they referred back to [facility] Start: 10-18-2024 End: 10-18-2024 Patient encounter procedure 10/18/2024 2:15 PM EST [facility]ointment [facility] [address] [place] [id number] [facility] Start: 10-10-2024 Subsequent hospital visit by physician 10/10/2024 [facility] [address] [place] [id number] Ginger Milton MD [address] [facility] [place], [place] [id number] [facility] Comment on above: [facility] Start: 10-09-2024 Subsequent hospital visit by physician 10/09/2024 Hospital Encounter Endoscopy [address] [place] [id number] Katharina Welsh MD [address] [place] [address] Endoscopy Start: 10-04-2024 Subsequent hospital visit by physician 10/04/2024 Hospital En[facility] [address] [place] [address] Max Rico MD [address] [place] [address] [facility] Comment on above: [facility] Start: 10-03-2024 Subsequent hospital visit by physician 10/03/2024 Hospital En[facility] [address] [place] [address] Max Rico MD [address] [place] [address] [facility] Comment on above: [facility] Start: 09-27-2024 End: 09-27-2024 Patient encounter procedure 09/27/2024 3:30 PM EST Office Visit Christopher Diaz [address] [facility] [place] [phone] Destiny Godfrey MD [address] [facility] [place] [address] [facility] Oncology Joe Start: 09-27-2024 Subsequent hospital visit by physician 09/27/2024 Hospital Encounter [facility] Inter[facility] Rad[facility] [address] [place] [id number] Ginger Milton MD [address] [place] [address] [facility] [place] [facility] Comment on above: [facility] Start: 09-20-2024 Subsequent hospital visit by physician 09/20/2024 Hospital Encounter [facility] [address] [place] [phone] Minda Gómez MD [address] [place] [address] [facility] [place] [facility] Comment on above: [facility] Start: 09-20-2024 End: 09-20-2024 Patient encounter procedure 09/20/2024 1:45 PM EST Office Visit [facility] [address] [place] [address], [address] [place] [address] Katharina Welsh MD [address] [address] [place], [place] [id number] Ashlee Frazier APRN [address] [place] [address] [facility] Start: 08-30-2024 Subsequent hospital visit by physician 08/30/2024 Hospital Encounter [facility] Inter[facility] [address] [facility] [address] Minda Gómez MD [address] [facility] [place] [address] [facility] Comment on above: [facility] Start: 08-22-2024 Subsequent hospital visit by physician 08/22/2024 Hospital Encounter [facility] [address] [place] [address] Max Rico MD [address] [place] [address] [facility] Comment on above: [facility] Start: 08-09-2024 Subsequent hospital visit by physician 08/09/2024 Hospital Encounter [facility] [address] [place] [address] Minda Gómez MD [address] [facility] [place] [address] [facility] Discharge Disposition: Home or Self Care [facility] Comment on above: [facility] Start: 08-02-2024 Subsequent hospital visit by physician 08/02/2024 Hospital Encounter [facility] [address] [place] [address] Ginger Milton MD [address] [place] [address] [facility] [place] Inter[facility] Rad[facility] Comment on above: [facility] Start: 07-27-2024 End: 07-27-2024 Patient encounter procedure 07/27/2024 10:30 AM EDT Office Visit [facility] [address] [place] [address] Jhonatan Banda, SALES EXECUTIVE [address] [place] [address] [facility] Start: 07-25-2024 End: 07-25-2024 Patient encounter procedure 07/25/2024 3:00 PM EDT Office Visit [facility] [address] [place], [place] [address]ber[address] [place], [address] [place] [address] Katharina Welsh MD [address] [place] [address] [address] [place] [address] [facility] Start: 07-18-2024 End: 07-18-2024 Patient encounter procedure 07/18/2024 11:00 AM EDT Office Visit [facility] [address] [place] [address], [address] [place] [address] Katharina Welsh MD [address] [place] [address] [address] [place] [address] [facility] Start: 06-24-2024 DIABETES SCREEN DIABETES SCREEN [facility] Start: 06-24-2024 Diabetes Screening Diabetes Screening [facility] Start: 05-29-2024 End: 05-29-2024 Patient encounter procedure 05/29/2024 10:00 AM EDT Office Visit Family Fortunato Harrell [address] [place], [place] [address] Dacia Acosta MD [address] [place], [place] [id number] Hospital Follow Up [facility] Fortunato Harrell Comment on above: Hospital Follow Up Start: 05-27-2024 Covid-19 Vaccine ( season) Covid-19 Vaccine ( season) [facility] Start: 05-27-2024 Covid-19 Vaccine ( season) Covid-19 Vaccine ( season) [facility] Start: 05-27-2024 Influenza vaccination [facility] Start: 05-16-2024 End: 05-16-2024 ambulatory 05/16/2024 9:30 AM EDT Visit (SP) Office Hematology/Oncology [address] [place] [address] Erik Salas, DO [address] [place] [address] SENIOR PROFESSIONAL SERVICES CONSULTANT/PER TE* FIRST AVAIL/ ELEVATED IGG ref Rashsaan Friend* Hematology/Oncology Comment on above: SENIOR PROFESSIONAL SERVICES CONSULTANT/PER TE* FIRST AVAIL/ ELEVATED IGG ref Rashsaan Friend* Start: 05-15-2024 End: 05-15-2024 ambulatory 05/15/2024 3:00 PM EDT Visit (SP) Office Hematology/Oncology [address] [place] [address] Erik Salas, DO [address] [place] [address] SENIOR PROFESSIONAL SERVICES CONSULTANT/PER TE* FIRST AVAIL/ ELEVATED IGG ref Rashsaan Friend* Hematology/Oncology Comment on above: SENIOR PROFESSIONAL SERVICES CONSULTANT/PER TE* FIRST AVAIL/ ELEVATED IGG ref Rashsaan Friend* Start: 05-15-2024 End: 05-15-2024 Patient encounter procedure 05/15/2024 2:50 PM EDT Office Visit OB/Gynecology [address] [place] [address] Jeannette Dawson MD [address] [place] [address] F/U family med, abdominal pain OB/Gynecology Comment on above: F/U family med, abdominal pain Start: 05-11-2024 End: 08-10-2024 Potassium [Moles/volume] in Serum or Plasma POTASSIUM Lab Routine Hypokalemia Expected: 05/11/2024, Expires: 08/10/2024 [facility] Work Phone: Comment on above: Expected: 05/11/2024, Expires: Start: 05-11-2024 End: 05-11-2024 Patient encounter procedure OB/Gynecology Comment on above: Follow up from [facility], abdominal pain Diarrhea, unspecifie d type [R19.7] Start: 05-10-2024 End: 08-09-2024 HIV 1+2 Ab [Presence] in Serum or Plasma by Immunoassay [facility] Comment on above: Expected: 05/10/2024, Expires: Start: 05-10-2024 End: 08-09-2024 SYPHILIS TOTAL W/REFLEX [facility] Comment on above: Expected: 05/10/2024, Expires: Start: 04-20-2024 End: 04-20-2024 Patient encounter procedure 04/20/2024 2:00 PM EDT Office Visit Family Medicine Julio Cesar [address] [place], [place] [address] Mervin Ambrocio APRN.MONUMENTAL STONEMASON [address] [place], [place] [address] [facility] 04/13 f/u kidney stone [facility] [place] Comment on above: [facility] 04/13 f/u kidney stone Start: 03-20-2024 End: 03-20-2024 Patient encounter procedure 03/20/2024 12:00 PM EDT Office Visit [facility] [address] [place] [phone] Melisa Main MD [address] [place], [place] [id number] Follow-up disposition: Return in about 4 weeks (around 03/06/2024) for Follow up. [facility] Comment on above: Follow-up disposition: Return in about 4 weeks (around 03/06/2024) for Follow up. Start: 03-14-2024 End: 03-14-2024 Patient encounter procedure 03/14/2024 4:00 PM EDT Appointment Mammogram [address] [place], [place] [address] JEANETH SCREENING Mammogram Comment on above: JEANETH SCREENING Start: 02-21-2024 HPV TESTING HPV TESTING [facility] Start: 02-21-2024 PAP TESTING PAP TESTING [facility] Start: 02-21-2024 Screening for malignant neoplasm of cervix [facility] Start: 02-07-2024 End: 02-07-2024 Patient encounter procedure 02/07/2024 9:00 AM EDT Office Visit [facility] [address] [place] [address] Melisa Main MD [address] [place] [address] Open wound of skin [T14.8XXA]/ PATIENT INFORMED THAT APPT MIGHT NEED TO BE RESCHEDULED PLEASE CALL PATIENT, NOTICE THAT SLOT WAS LOCK [facility] Comment on above: Open wound of skin [T14.8XXA]/ PATIENT I NFORMED THAT APPT MIGHT NEED TO BE RESCHEDULED PLEASE CALL PATIENT, NOTICE THAT SLOT WAS LOCK Start: 01-25-2024 Mammography [facility] Start: 01-25-2024 Screening for malignant neoplasm of breast Mammogram Screening [facility] Start: 12-28-2023 Patient discharge [facility] Start: 12-09-2023 [facility] Start: 12-09-2023 Diagnostic radiography of abdomen [facility] Start: 12-09-2023 XR Chest and Abdomen Views [facility] Start: 12-07-2023 Patient discharge [facility] Start: 12-05-2023 Referral to toter [facility] Start: 12-05-2023 Anaerobic microbial culture [facility] Start: 12-05-2023 Procedure [facility] Start: 12-05-2023 End: 12-05-2023 [facility] Start: 12-04-2023 Following clinical pathway protocol [facility] Start: 12-04-2023 Assessment of risk of venous thromboembolism [facility] Start: 12-04-2023 Inhalation therapy procedure [facility] Start: 12-04-2023 Insertion of catheter into peripheral vein [facility] Start: 12-04-2023 Introduction of urinary catheter [facility] Start: 12-04-2023 Measuring intake and output [facility] Start: 12-04-2023 Oxygen therapy [facility] Start: 12-04-2023 Providing care according to standard [facility] Start: 12-04-2023 Provision of activity privileges [facility] Start: 12-04-2023 Referral to service [facility] Start: 12-04-2023 Tobacco use cessation education [facility] Start: 12-04-2023 [facility] Start: 12-04-2023 Admission procedure [facility] Start: 12-04-2023 Verification routine [facility] Start: 12-04-2023 Hospital admission, emergency, from emergency room, medical nature [facility] Start: 12-04-2023 Consultation [facility] Start: 12-04-2023 Patient referral to dietitian [facility] Start: 11-26-2023 End: 02-25-2024 Urinalysis complete panel - Urine [facility] Work Phone: Comment on above: Expected: 11/26/2023, Expires: Start: 11-10-2023 End: 11-10-2023 [facility] Start: 11-07-2023 Anaerobic Culture Anaerobic Culture [facility] Start: 11-07-2023 Anaerobic microbial culture [facility] Start: 11-07-2023 Body Fluid Culture Body Fluid Culture [facility] Start: 11-07-2023 Microscopic observation [Identifier] in Unspecified specimen by Gram stain [facility] Start: 11-07-2023 End: 11-07-2023 [facility] Start: 11-05-2023 End: 11-05-2023 [facility] Start: 10-10-2023 [facility] Start: 10-09-2023 [facility] Start: 2023 Screening for malignant neoplasm of lung Lung Cancer Screening [facility] Start: 2023 Shingles Vaccine (Shingrix) (1 of 2) Shingles Vaccine (Shingrix) (1 of 2) [facility] Start: 2023 Shingrix Vaccine (1 of 2) Shingrix Vaccine (1 of 2) [facility] Start: 2023 Zoster Vaccines (1 of 2) Zoster Vaccines (1 of 2) [facility] Start: 2023 Patient discharge [facility] Start: 10-07-2023 Urine culture Urine Culture [facility] Start: 10-07-2023 End: 10-07-2023 [facility] Start: 10-06-2023 Following clinical pathway protocol [facility] Start: 10-06-2023 Assessment of risk of venous thromboembolism [facility] Start: 10-06-2023 Insertion of catheter into peripheral vein [facility] Start: 10-06-2023 Providing care according to standard [facility] Start: 10-06-2023 Provision of activity privileges [facility] Start: 10-06-2023 Referral to occupational therapist [facility] Start: 10-06-2023 Referral to service [facility] Start: 10-06-2023 [facility] Start: 10-06-2023 Admission procedure [facility] Start: 10-06-2023 Consultation [facility] Start: 09-24-2023 [facility] Start: 08-22-2023 [facility] Start: 08-22-2023 Referral to service [facility] Start: 08-22-2023 End: 08-22-2023 Suicide precautions [facility] Start: 08-15-2023 Iv infusion therapy prophylaxis/dx ea hour [facility] Start: 08-15-2023 Iv infusion therapy/prophylaxis /dx 1st to 1 hr [facility] Start: 08-15-2023 Level iv surg pathology gross&microscopic exam [facility] Start: 08-15-2023 Following clinical pathway protocol [facility] Start: 07-21-2023 Anaerobic Culture Anaerobic Culture [facility] Start: 07-21-2023 Body Fluid Culture Body Fluid Culture [facility] Start: 07-21-2023 Microscopic observation [Identifier] in Unspecified specimen by Gram stain Gram Stain [facility] Start: 07-21-2023 Patient discharge [facility] Start: 07-21-2023 CBC W Auto Differential panel - Blood [facility] Start: 07-21-2023 [facility] Start: 07-21-2023 Following clinical pathway protocol [facility] Start: 07-21-2023 Assessment of risk of venous thromboembolism [facility] Start: 07-21-2023 Catheterization of vein [facility] Start: 07-21-2023 Cell count and Differential panel - Body fluid [facility] Start: 07-21-2023 Centesis Paracentesis with US [facility] Start: 07-21-2023 Insertion of catheter into peripheral vein [facility] Start: 07-21-2023 Measuring intake and output [facility] Start: 07-21-2023 Microbial culture, body fluid [facility] Start: 07-21-2023 Providing care according to standard [facility] Start: 07-21-2023 Provision of activity privileges [facility] Start: 07-21-2023 Referral to gastroenterology service [facility] Start: 07-21-2023 [facility] Start: 07-21-2023 Consultation [facility] Start: 07-21-2023 Patient referral to dietitian [facility] Start: 07-20-2023 Verification routine [facility] Start: 07-20-2023 Admission procedure [facility] Start: 07-20-2023 Abdom paracentesis dx/ther w/imaging guidance [facility] Start: 05-27-2023 Covid-19 Vaccine () Covid-19 Vaccine () [facility] Start: 05-27-2023 Influenza vaccination [facility] Start: 04-25-2023 [facility] Start: 04-25-2023 Gonadotropin chorionic qualitative CHORIONIC GONADOTROPIN ASSAY [facility] Start: 12-02-2022 End: 02-01-2023 Bacteria identified in Wound by Culture WOUND CULTURE AND GRAM STAIN Microbiology Routine Skin infection Expected: 12/02/2022, Expires: 02/01/2023 [facility] Work Phone: Comment on above: Expected: 12/02/2022, Expires: Start: 09-15-2022 Patient discharge [facility] Work Phone: Start: 08-27-2022 Acute hepatitis 2000 panel - Serum [facility] Work Phone: Start: 08-27-2022 [id number].tumo r marker [Units/volume] in Serum or Plasma [facility] Work Phone: Start: 08-27-2022 Angiotensin converting enzyme [Enzymatic activity/volume] in Serum or Plasma [facility] Work Phone: Start: 08-27-2022 Ceruloplasmin [Mass/volume] in Serum or Plasma [facility] Work Phone: Start: 08-27-2022 Copper [Moles/volume] in Serum or Plasma [facility] Work Phone: Start: 08-27-2022 Haptoglobin [Mass/volume] in Serum or Plasma [facility] Work Phone: Start: 08-27-2022 Hepatitis B virus genotype [Identifier] in Serum or Plasma by PHYLLIS with probe detection [facility] Work Phone: Start: 08-27-2022 Mitochondria Ab [Presence] in Serum [facility] Work Phone: Start: 08-27-2022 Smooth muscle Ab [Presence] in Serum [facility] Work Phone: Start: 08-27-2022 [facility] Work Phone: Start: 05-27-2022 Influenza vaccination [facility] Start: 05-21-2022 Patient discharge [facility] Work Phone: Start: 05-21-2022 [facility] Work Phone: Start: 05-21-2022 Referral to occupational therapist [facility] Work Phone: Start: 05-21-2022 Referral to service [facility] Work Phone: Start: 05-20-2022 Application of intermittent pneumatic compression device [facility] Work Phone: Start: 05-19-2022 Following clinical pathway protocol [facility] Work Phone: Start: 05-19-2022 Aspiration precautions [facility] Work Phone: Start: 05-19-2022 Assessment of risk of venous thromboembolism [facility] Work Phone: Start: 05-19-2022 Bacteria identified in Sputum by Culture [facility] Work Phone: Start: 05-19-2022 Fall prevention [facility] Work Phone: Start: 05-19-2022 Incentive spirometry [facility] Work Phone: Start: 05-19-2022 Inhalation therapy procedure [facility] Work Phone: Start: 05-19-2022 Insertion of catheter into peripheral vein [facility] Work Phone: Start: 05-19-2022 Introduction of urinary catheter [facility] Work Phone: Start: 05-19-2022 Measuring intake and output [facility] Work Phone: Start: 05-19-2022 Providing care according to standard [facility] Work Phone: Start: 05-19-2022 Provision of activity privileges [facility] Work Phone: Start: 05-19-2022 Referral to service [facility] Work Phone: Start: 05-19-2022 Tobacco use cessation education [facility] Work Phone: Start: 05-19-2022 Wound care [facility] Work Phone: Start: 05-19-2022 End: 05-19-2022 [facility] Work Phone: Start: 05-19-2022 Legionella pneumophila Ag [Presence] in Urine [facility] Work Phone: Start: 05-19-2022 Streptococcus pneumoniae antigen assay [facility] Work Phone: Start: 05-19-2022 Viral nucleic acid assay [facility] Work Phone: Start: 05-19-2022 Admission procedure [facility] Work Phone: Start: 05-19-2022 Verification routine [facility] Work Phone: Start: 05-19-2022 [facility] Work Phone: Start: 05-09-2022 End: 07-09-2022 Bacteria identified in Wound by Culture [facility] Work Phone: Comment on above: Expected: 05/09/2022, Expires: Start: 01-11-2022 End: 01-25-2022 Influenza virus A and B RNA and SARS-CoV-2 (COVID-19) N gene panel - Respiratory specimen by PHYLLIS with probe detection [facility] Work Phone: Comment on above: Expected: 01/11/2022, Expires: 2 Start: 08-05-2019 PNEUMOCOCCAL (2 - PCV) PNEUMOCOCCAL (2 - PCV) [facility] Start: 08-05-2019 [facility] Start: 08-05-2019 Pneumococcal Vaccine: 50+ (2 of 2 - PCV) Pneumococcal Vaccine: 50+ (2 of 2 - PCV) [facility] Start: 2018 COLOGUARD (FIT-DNA) COLOGUARD (FIT-DNA) [facility] Start: 2018 Colonoscopy COLONOSCOPY [facility] Start: 2018 COLORECTAL CANCER SCREENING COLORECTAL CANCER SCREENING [facility] Start: [address] COLONOGRAPHY [facility] Start: 2018 Diabetes Screening Diabetes Screening [facility] Start: 2018 FECAL OCCULT BLOOD FECAL OCCULT BLOOD [facility] Start: 2018 Lipid 1996 panel - Serum or Plasma Lipid Screening [facility] Start: 2018 Lipid panel Lipid Screening [facility] Start: 2018 LIPID SCREEN LIPID SCREEN [facility] Start: 2018 Screening for malignant neoplasm of colon [facility] Start: 2018 SIGMOIDOSCOPY SIGMOIDOSCOPY [facility] Start: 2013 Mammography MAMMOGRAM [facility] Start: 2013 Screening for malignant neoplasm of breast [facility] Start: 2003 Screening for malignant neoplasm of cervix [facility] Start: 1994 Screening for malignant neoplasm of cervix [facility] Start: 1992 DTAP/TDAP/TD VACCINE (1 - Tdap) DTAP/TDAP/TD VACCINE (1 - Tdap) [facility] Start: 1992 HEP A VACCINE (1 of 2 - Risk 2-dose series) HEP A VACCINE (1 of 2 - Risk 2-dose series) [facility] Start: 1992 Hepatitis A Vaccine (1 of 2 - Risk 2-dose series) Hepatitis A Vaccine (1 of 2 - Risk 2-dose series) [facility] Start: 1992 Hepatitis A Vaccines (1 of 2 - Risk 2-dose series) Hepatitis A Vaccines (1 of 2 - Risk 2-dose series) [facility] Start: 1992 HEPATITIS B (1 of 3 - Risk 3-dose series) HEPATITIS B (1 of 3 - Risk 3-dose series) [facility] Start: 1992 Hepatitis B Vaccine (1 of 3 - 19+ 3-dose series) Hepatitis B Vaccine (1 of 3 - 19+ 3-dose series) [facility] Start: 1992 Pneumococcal Vaccine: 50+ (1 of 2 - PCV) Pneumococcal Vaccine: 50+ (1 of 2 - PCV) [facility] Start: 1992 Urine microalbumin profile [facility] Start: 1991 Anxiety Screening Anxiety Screening [facility] Start: 1991 Depression Screening Depression Screening [facility] Start: 1991 Diabetes mellitus screening Diabetes Screening [facility] Start: 1991 Hepatitis C screening Hepatitis C Screening [facility] Start: 1991 HIV screening HIV Screening [facility] Start: 1985 Depresssion Monitoring Depresssion Monitoring [facility] Start: 1978 COVID-19 VACCINE (#1) COVID-19 VACCINE (#1) [facility] Start: 1978 COVID-19 VACCINE (1) COVID-19 VACCINE (1) [facility] Start: 1976 ANNUAL WELLNESS EXAM ANNUAL WELLNESS EXAM [facility] Start: 1974 HEPATITIS A (1 of 2 - Risk 2-dose series) HEPATITIS A (1 of 2 - Risk 2-dose series) [facility] Start: 1974 MMR Vaccines (1 of 1 - Standard series) MMR Vaccines (1 of 1 - Standard series) [facility] Start: 04-07-1974 COVID-19 VACCINE (#1) COVID-19 VACCINE (#1) [facility] Start: 1973 HEPATITIS B (1 of 3 - 3-dose series) HEPATITIS B (1 of 3 - 3-dose series) [facility] Start: 1973 Hepatitis B Vaccine (1 of 3 - 3-dose series) Hepatitis B Vaccine (1 of 3 - 3-dose series) [facility] Start: 1973 Hepatitis B Vaccines (1 of 3 - 3-dose series) Hepatitis B Vaccines (1 of 3 - 3-dose series) [facility] Start: 1973 HIV screening HIV Screening [facility] Start: 1973 Screening for malignant neoplasm of cervix PAP SMEAR EVERY 3 YR (Cervical Cancer Screen) [facility] Start: 1973 Screening for malignant neoplasm of colon [facility] Alanine aminotransfe rase [Enzymatic activity/volume] in Serum or Plasma [facility] Alanine aminotransfe rase [Enzymatic activity/volume] in Serum or Plasma [facility] Albumin [Mass/volume ] in Serum or Plasma [facility] Albumin [Mass/volume ] in Serum or Plasma [facility] Albumin, Body Fluid Albumin, Bod y Fluid Lab Routine 07/02/2024 1:03 PM EDT [facility] Albumin, Body Fluid Albumin, Bod y Fluid Lab Routine 07/09/2024 8:37 AM EDT [facility] Alkaline phosphatase [Enzymatic activity/volume] in Serum or Plasma [facility] Alkaline phosphatase [Enzymatic activity/volume] in Serum or Plasma [facility] [id number]. tumo r marker [Units/volume] in Serum or Plasma [facility] Work Phone: Bragb-[id number]. tumo r marker [Units/volume] in Serum or Plasma [facility] [id number]. tumo r marker [Units/volume] in Serum or Plasma [facility] Amphetamine [Mass/volume] in Urine [facility] Angiotensin converti ng enzyme [Enzymatic activity/volume] in Serum or Plasma [facility] Work Phone: Anion gap measurement [facility] Anion gap measurement [facility] Antibody to lupus La protein measurement [facility] Work Phone: Antibody to lupus La protein measurement [facility] Antibody to SS-A measurement [facility] Work Phone: Antibody to SS-A measurement [facility] Aspartate aminotransferase [Enzymatic activity/volume] in Serum or Plasma [facility] Aspartate aminotransferase [Enzymatic activity/volume] in Serum or Plasma [facility] Bacteria identified in Body fluid by Culture [facility] Bacteria identified in Body fluid by Culture [facility] Bacteria identified in Unspecified specimen by Anaerobe culture [facility] Bacteria identified in Unspecified specimen by Anaerobe culture [facility] Bacteria identified in Urine by Culture Urine Culture [facility] Work Phone: Bacteria identified in Urine by Culture [facility] Bacteria identified in Urine by Culture URINE CULTURE Microbiology Routine Gross hematuria Acute cystitis with hematuria 01/31/2024 11:20 AM EDT [facility] Bacteria identified in Urine by Culture [facility] Bacteria identified in Urine by Culture URINE CULTURE Microbiology Routine Urinary frequency Ordered: 05/07/2024 [facility] Work Phone: Comment on above: Ordered: 05/07/2024 Bacteria identified in Wound by Culture WOUND CULTURE AND GRAM STAIN Microbiology Routine Cellulitis of chin 09/29/2022 6:34 PM EST [facility] Work Phone: Bacteria identified in Wound by Culture [facility] Work Phone: Benzodiazepine measurement, urine [facility] Bilirubin measuremen t, urine [facility] Bilirubin, total measurement [facility] Bilirubin, total measurement [facility] Bilirubin.direct [Mass/volume] in Serum or Plasma [facility] Blood ammonia measurement [facility] Blood Culture, Peripheral x 2 sets Blood Culture, Peripheral x 2 sets Microbiology STAT 12/10/2024 2:41 AM T [facility] Body Fluid Cell Count Body Fluid Cell Count Lab Routine 07/02/2024 1:03 PM EDT [facility] Body Fluid Cell Count Body Fluid Cell Count Lab Routine 07/09/2024 8:37 AM [facility] End: 07-02-2024 Body Fluid Culture [facility] Work Phone: Comment on above: One Time for 1 Occurrences starting 03/2024 until 07/02/2024 Body Fluid Culture Body Fluid Cu lture Microbiology Routine 07/09/2024 8:37 AM [facility] BUN/Creatinine ratio [facility] BUN/Creatinine ratio [facility] C reactive protein [Mass/volume] in Serum or Plasma [facility] Calcium [Mass/volume ] in Serum or Plasma [facility] Calcium [Mass/volume ] in Serum or Plasma [facility] Carbon dioxide, tota l [Moles/volume] in Serum or Plasma [facility] Carbon dioxide, tota l [Moles/volume] in Serum or Plasma [facility] CBC panel - Blood by Automated count CBC Lab Routine Daily until discontinued starting 12/10/2024, 4 completed [facility] Comment on above: Daily until discontinued starting 2024, 4 completed CBC W Auto Different ial panel - Blood [facility] CBC W Auto Different ial panel - Blood [facility] CBC W Auto Different ial panel - Blood [facility] Centromere protein B Ab [Units/volume] in Serum [facility] Work Phone: Ceruloplasmin [Mass/volume] in Serum or Plasma [facility] Work Phone: Chlamydia trachomatis+Neisseria gonorrhoeae DNA [Presence] in Unspecified specimen by PHYLLIS with probe detection GONORRHEA/CHLAMYDIA NAAT Lab Routine Possible exposure to STD Ordered: 05/10/2024 [facility] Comment on above: Ordered: 05/10/2024 Chloride [Moles/volu me] in Serum or Plasma [facility] Chloride [Moles/volu me] in Serum or Plasma [facility] Choriogonadotropin.b eta subunit ( test) [Presence] in Serum or Plasma [facility] Chromatin Ab [Units/volume] in Serum or Plasma [facility] Work Phone: Cocaine measurement, urine [facility] Comprehensive metabo lic 2000 panel - Serum or Plasma Comprehensive Metabolic Panel Lab Timed Daily until discontinued starting 12/10/2024, 4 completed [facility] Comment on above: Daily until discontinued starting 2024, 4 completed Comprehensive metabo lic 2000 panel - Serum or Plasma [facility] Copper [Moles/volume ] in Serum or Plasma [facility] Work Phone: Creatinine [Moles/volume] in Serum or Plasma [facility] Creatinine [Moles/volume] in Serum or Plasma [facility] End: 06-09-2025 CT Abdomen and Pelvis W contrast IV CT ABD/PEL W IVCON Radiology STAT Diarrhea, unspecified type 1 Occurrences starting 05/10/2024 until 06/09/2025 [facility] Work Phone: Comment on above: 1 Occurrences starting 05/10/2024 until 06/09/2025 CT Abdomen WO and W contrast IV [facility] Cytology report of B no fluid Cyto stain [facility] End: 07-02-2024 Cytology, 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 [facility] Comment on above: One Time for 1 Occurrences starting 03/2024 until 07/02/2024 End: 07-09-2024 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, 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 [facility] Work Phone: Comment on above: One Time for 1 Occurrences starting 06/26 until 07/09/2024 Cytoplasmic ANCA Screen [facility] DNA double strand Ab [Units/volume] in Serum [facility] Work Phone: DNA double strand Ab [Units/volume] in Serum [facility] EGD /C BAND LIGATION VARICES [facility] Ferritin [Mass/volum e] in Serum or Plasma [facility] Gamma glutamyl transferase measurement [facility] Gamma glutamyl transferase measurement [facility] Glucose [Mass/volume ] in Serum or Plasma [facility] Glucose [Mass/volume ] in Serum or Plasma [facility] Haptoglobin [Mass/volume] in Serum or Plasma [facility] Work Phone: Hematocrit [Volume Fraction] of Blood [facility] Hematocrit [Volume Fraction] of Blood [facility] Hemoglobin [Mass/vol ume] in Blood [facility] Hemoglobin [Mass/vol ume] in Blood [facility] Hemoglobin [Presence ] in Urine [facility] Hemoglobin A1c/Hemoglobin.total in Blood [facility] Hepatitis A virus Ig M Ab [Presence] in Serum [facility] Work Phone: Hepatitis B core antibody measurement, IgM type [facility] Work Phone: Hepatitis B surface antigen measurement [facility] Work Phone: Hepatitis B virus surface Ab [Presence] in Serum [facility] Hepatitis C antibody measurement [facility] Work Phone: Hepatitis C virus genotype [Identifier] in Blood by PHYLLIS with probe detection [facility] Work Phone: Hepatitis C virus RN A assay [facility] Hepatitis C virus RN A assay [facility] IgG [Mass/volume] in Serum or Plasma [facility] IgG subclass panel [Mass/volume] - Serum [facility] Immunoglobulin measurement [facility] Iron and Iron bindin g capacity panel - Serum or Plasma [facility] Thania-1 extractable nuc lear Ab [Units/volume] in Serum [facility] Work Phone: Leukocytes [#/volume ] in Blood [facility] Leukocytes [#/volume ] in Blood [facility] Lipid 1996 panel - S marcello or Plasma [facility] Magnesium [Mass/volu me] in Serum or Plasma [facility] Work Phone: Mean corpuscular hemoglobin concentration determination [facility] Mean corpuscular hemoglobin concentration determination [facility] Mean corpuscular hemoglobin determination [facility] Mean corpuscular hemoglobin determination [facility] Measurement of 3,4-methylenedioxymetham phetamine in urine [facility] Measurement of keton es in urine using dipstick [facility] Measurement of renal function [facility] Measurement of renal function [facility] Methadone measuremen t, urine [facility] End: 03-30-2025 MG Breast Screening JEANETH SCREENING Radiology Routine Encounter for screening mammogram for breast cancer 1 Occurrences starting 02/29/2024 until 03/30/2025 [facility] Work Phone: Comment on above: 1 Occurrences starting 02/29/2024 until 03/30/2025 Microbial culture, b no fluid [facility] Microscopic urinalysis [facility] Mitochondria Ab [Presence] in Serum [facility] Work Phone: Mitochondria Ab [Presence] in Serum [facility] MR Lumbar spine [facility] Neutrophil count [facility] Neutrophil count [facility] Neutrophil cytoplasm ic Ab.classic [Units/volume] in Serum [facility] Work Phone: Neutrophil percent differential count [facility] Neutrophil percent differential count [facility] P-ANCA measurement [facility] Work Phone: Patient Education [facility] Work Phone: Patient referral [facility] Work Phone: pH of Urine [facility] pH of Urine [facility] Phencyclidine [Prese nce] in Urine [facility] Platelets [#/volume] in Blood [facility] Platelets [#/volume] in Blood [facility] Potassium [Moles/vol ume] in Serum or Plasma [facility] Potassium [Moles/vol ume] in Serum or Plasma [facility] Prothrombin time [facility] Prothrombin time [facility] End: 12-11-2024 PT Eval and Treat -Debility - PT Eval and Treat -Debility - PT Routine Until Discontinued until discontinued starting 12/11/2024 [facility] Work Phone: Comment on above: Until Discontinued until discontinued st arting 12/11/2024 Red blood cell count [facility] Red blood cell count [facility] Red cell distributio n width determination [facility] Red cell distributio n width determination [facility] RT Protocol RT Protocol Resp iratory Care Routine As Needed until discontinued starting 12/10/2024 [facility] Work Phone: Comment on above: As Needed until discontinued starting SCL-70 extractable nuclear Ab [Units/volume] in Serum by Immunoassay [facility] Work Phone: End: 04-23-2023 Screening mammography bi 2-view breast inc cad JEANETH SCREENING Radiology Routine Encounter for screening mammogram for breast cancer 1 Occurrences starting 03/24/2022 until 04/23/2023 [facility] Work Phone: Comment on above: 1 Occurrences starting 03/24/2022 until 04/23/2023 Serum immunofixation [facility] Levin extractable nuclear Ab [Presence] in Serum [facility] Work Phone: Smooth muscle Ab [Presence] in Serum [facility] Work Phone: Smooth muscle Ab [Presence] in Serum [facility] Sodium [Moles/volume ] in Serum or Plasma [facility] Sodium [Moles/volume ] in Serum or Plasma [facility] Specific gravity of Urine [facility] Thyroid stimulating hormone measurement [facility] Total protein measurement [facility] Total protein measurement [facility] TRICHOMONAS VAGINALI S NAAT TRICHOMONAS VAGINALIS NAAT Lab Routine Possible exposure to STD 05/10/2024 1:38 PM EDT [facility] Urea nitrogen [Mass/volume] in Serum or Plasma [facility] Urea nitrogen [Mass/volume] in Serum or Plasma [facility] Urinalysis, blood, qualitative [facility] Urine barbiturate measurement [facility] Urine cannabinoid measurement [facility] Urine dipstick for glucose [facility] Urine dipstick for leukocyte esterase [facility] Urine dipstick for nitrite [facility] Urine dipstick for protein [facility] Urine examination [facility] Urine microscopy: epithelial cells [facility] Urine Microscopy: wh ite cells [facility] Urine opiate measurement [facility] Urine test [facility] Work Phone: Urobilinogen [Presen ce] in Urine [facility] End: 07-17-2024 Vascular Procedure [facility] Work Phone: Comment on above: One Time for 1 Occurrences starting 06/27 until 07/17/2024 End: 07-26-2024 Vascular Procedure [facility] Work Phone: Comment on above: One Time for 1 Occurrences starting 06/28 until 07/26/2024 End: 08-02-2024 Vascular Procedure [facility] Work Phone: Comment on above: One Time for 1 Occurrences starting 03/2024 until 08/02/2024 End: 08-16-2024 Vascular Procedure [facility] [facility] Work Phone: Comment on above: One Time for 1 Occurrences starting 07/28 until 08/16/2024 End: 09-11-2024 Vascular Procedure CHRISTOPHER JACKSON [facility] Work Phone: Comment on above: One Time for 1 Occurrences starting 08/26 until 09/11/2024 End: 10-15-2024 Vascular Procedure CHRISTOPHER JACKSON [facility] Work Phone: Comment on above: One Time for 1 Occurrences starting 09/27 until 10/15/2024 End: 10-19-2024 Vascular Procedure CHRISTOPHER SANDOVAL [facility] Work Phone: Comment on above: One Time for 1 Occurrences starting 09/27 until 10/19/2024 End: 11-21-2024 Vascular Procedure CHRISTOPHER JACKSON [facility] Work Phone: Comment on above: One Time for 1 Occurrences starting 10/28 until 11/21/2024 [facility] Immunizations Immunization Date Immunization Notes Care Provider Evert hanley 07-20-2023 tetanus toxoid, redu viridiana diphtheria toxoid, and acellular pertussis vaccine, adsorbed [facility] 08-06-2018 influenza, injectabl e, quadrivalent, preservative free Becca Singer APRN.MONUMENTAL STONEMASON Work Phone: [facility] 08-06-2018 influenza virus vaccine, unspecified formulation Screen Wstr [facility] 08-05-2018 pneumococcal polysaccharide vaccine, 23 valent Becca Singer SALES EXECUTIVE.MONUMENTAL STONEMASON Work Phone: [facility] NEGATED: Highlighted row has not occurred!09-11-2023 Influenza, injectable, Madin [place] Canine Kidney, preservative free, quadrivalent Lenny Macdonald MD Work Phone: [facility] Comment on above: Deferred: Patient Re fused Payers Date Payer Category Payer Unknown [id number] 2024 Self-pay [id number] 2023 Unknown [id number]. [id number] MEDICAID [id number] 2015-Present [phone] [address] [place] [address] Medicaid [id number]. [id number] 2015 Medicaid [id number]. [id number]. [id number] 2015 Unknown [id number] 2015 Unknown [id number] 1975 Unknown [id number] 2.16.840.1.732822.3.579.2.627 1973 Unknown [id number] 2.16.840.1.649874.3.579.2.627 1973 Unknown [id number] 2.16.840.1.487979.3.579.2.627 Unknown [id number] 2.16.840.1.436796.3.579.2.462 Unknown [id number] 2.16.840.1.320789.3.579.2.462 Unknown [id number] 2.16.840.1.869293.3.579.2.462 Unknown [id number] 2.16.840.1.161623.3.579.2.462 Unknown [id number] 2.16.840.1.258770.3.579.2.462 Unknown [id number] 2.16.840.1.028669.3.579.2.462 Unknown [id number] 2.16.840.1.708722.3.579.2.462 Unknown [id number] 2.16.840.1.059821.3.579.2.462 Unknown [id number] 2.16.840.1.472014.3.579.2.462 Unknown [id number] 2.16.840.1.268011.3.579.2.462 Unknown [id number] 2.16.840.1.217326.3.579.2.462 Unknown [id number] 2.16840.1.868153.3.579.2.462 Unknown [id number] 2.16.840.1.909060.3.579.2.462 Unknown [id number] 2.840.1.026125.3.579.2.462 Unknown [id number] 2.840.1.914636.3.579.2.462 Unknown [id number] 2.840.1.652079.3.579.2.462 Unknown [id number] 2.840.1.773846.3.579.2.462 Unknown [id number] 2.840.1.324671.3.579.2.462 Unknown [id number] 2.840.1.929746.3.579.2.462 Unknown [id number] 2.840.1.888501.3.579.2.462 Unknown [id number] 2.840.1.221486.3.579.2.462 Unknown [id number] 2.840.1.852298.3.579.2.462 Unknown [id number] 2.840.1.611350.3.579.2.462 Unknown [id number] 2.840.1.455337.3.579.2.462 Unknown [id number] 2.840.1.409167.3.579.2.462 Unknown [id number] 2.16840.1.016431.3.579.2.462 Unknown [id number] 2.840.1.509491.3.579.2.462 Unknown [id number] 2.16.840.1.210319.3.579.2.462 Unknown [id number] 2.16.840.1.078369.3.579.2.462 Unknown [id number] 2.16.840.1.265199.3.579.2.462 Social History Date Type Detail Facility Start: 04-14-2017 End: 07-15-2025 Tobacco smoking status NHIS Smokes tobacco daily [facility] Work Phone: Start: 09-26-1987 History of tobacco use Cigarette Smo ker [facility] Work Phone: Start: 01-11-2022 End: 04-20-2024 Alcohol intake Current drinker of alcohol (finding) [facility] Start: 02-28-2020 History SDOH Alcohol Frequency 3 [facility] Start: 12-10-2011 History SDOH Alcohol Comment occasionally mixed drink [facility] Start: 04-14-2017 End: 05-09-2022 Tobacco Comment maybe more then 1 pack daily [facility] Start: 1975 Sex Assigned At Not on file [facility] Start: 01-01-2022 End: 05-26-2022 Exposure to SARS-CoV-2 (event) Not sure [facility] Work Phone: Start: 04-14-2017 End: 03-28-2025 Cigarettes smoked current (pack per day) - Reported 1 [facility] Work Phone: Start: 04-14-2017 End: 03-28-2025 Tobacco use and exposure Smokeless tobacco non-user [facility] Start: 04-30-2022 End: 05-10-2022 Exposure to SARS-CoV-2 (event) Yes [facility] Start: 05-15-2022 End: 11-07-2023 Tobacco smoking status TNIS Unknown if ever smoked [facility] Start: 1975 Sex Assigned At Female W [facility] Start: 02-28-2020 End: 03-28-2025 Alcohol Use Disorder Identification Test - Consumption [AUDIT-C] [facility] Work Phone: How often to you hav e a drink containing alcohol? 2-4 times a month [facility] Work Phone: Average Number of Drinks Not on file [facility] Within the last year , have you been afraid of your partner or ex-partner? No [facility] How often to you hav e a drink containing alcohol? Never [facility] Start: 08-22-2023 Alcohol Comment daily use of l iquor and other alcohol [facility] How hard is it for y ou to pay for the very basics like food, housing, medical care, and heating Somewhat hard [facility] (I/We) worried ben er (my/our) food would run out before (I/we) got money to buy more. Never true [facility] Start: 11-17-2023 Alcohol Comment not daily but freque nt [facility] Start: 03-23-2024 End: 06-09-2025 Tobacco smoking status Heavy tobacco smoker (finding) [facility] Tobacco smoking status Smoker (finding) [facility] Sex Assigned At [facility] Start: 07-02-2024 End: 03-28-2025 Alcohol intake Ex-drinker (finding) [facility] The food that (I/we) bought just didn't last, and (I/we) didn't have money to get more. Often true [facility] Yes, it has kept me from medical appointments or from getting my medications I choose not to answer this question [facility] Start: 12-23-2014 Sex Female (finding) [facility] Start: 03-28-2025 Alcohol Comment sober for 1-2 years [facility] NEGATED: Highlighted row [facility] NEGATED: Highlighted row Not [facility] Medical Equipment Procedure Code Equipment Code Equipment Original Text Equipment Identifier Dates Cystoscopy, with retrograde pyelogram and ureteral stent insertion ([id number]) [id number] FDA Start: 05-15-2024 Super Seven Band Ligator Endo Bx4 [id number]_[facility] Start: 09-07-2024 Comment on above: Description: 2 bands implanted Goals Date Patient Goal Desired Activity /State Functional Status Date Assessment Result Facility 01-17-2025 Functional Status Independent [facility] 01-17-2025 Functional Status Standard Safet y ID band on, Allergy Band on, Call device within reach, Bed in low position, Wheels locked, Upper/Half-Length side-rails up, personal items within reach, Bedside Cart Locked, Safety level maintained, Hazards removed from floor [facility] 03-23-2024 Functional Status Up ad cyn [facility] 03-23-2024 Functional Status Standard Safet y ID band on, Allergy Band on, Call device within reach, Bed in low position, Wheels locked, Visitor at bedside [facility] 12-07-2023 Functional status Ambulates;Bathroom Priv ilege [facility] Work Phone: 2023 Functional status Ambulates [facility] Work Phone: 07-21-2023 Functional status Independent [facility] Work Phone: 05-21-2022 Functional status Ambulates [facility] Work Phone: Mental Status Date Assessment Result Facility 03-15-2025 Cognitive function Touch/Shaking [facility] Work Phone: 01-17-2025 Mental Status Orientation Oriented x 4 [facility] 01-17-2025 Mental Status [facility] 03-23-2024 Mental Status Orientation Oriented x 4 [facility] 03-23-2024 Mental Status [facility] 12-28-2023 Cognitive function Touch/Shaking [facility] Work Phone: 12-07-2023 Cognitive function Voice/Name [facility] Work Phone: 2023 Cognitive function Follows Commands;Drows y [facility] Work Phone: 2023 Cognitive function Voice/Name [facility] Work Phone: 10-07-2023 Cognitive function Appropriate;Cooperativ e [facility] Work Phone: 09-24-2023 Cognitive function Awake;Alert;A ppropriate;Grant Zapata [facility] Work Phone: 08-15-2023 Cognitive function Awake;Alert;A ppropriate;Deidrao jes [facility] Work Phone: 08-15-2023 Cognitive function Awake;Alert;Appropriat e [facility] Work Phone: 07-21-2023 Cognitive function Awake;Alert;A ppropriate;Deidrao [facility] Work Phone: 09-15-2022 Cognitive function Voice/Name [facility] Work Phone: 05-21-2022 Cognitive function Voice/Name [facility] Work Phone: Clinical Notes 01-11-2022 to 08-02-2025 Note Date & Type Note Facility 08-02-2025 Note HNO ID: [id number] Author: ЕКАТЕРИНА SNYDER APRN.MONUMENTAL STONEMASON Service: ? Author Type: Nurse Practitioner Type: Progress Notes Filed: 08/02/2025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 Cessation Date was within the last 15 years Hx Smoking Cessation Date Hx Smoking Cessation No 03/13/25 16:01 Counseling Any additional information?: Yes Smoking Status: Current every day smoker (Patient smoked today.) Hematologic Medial History Hematologic Hx - non destructive tester: Hematologic Medical Hx - documentation coordinator Hx of Blood Transfusion No 03/13/25 16:01 Hx of Transfusion in last 3 No 03/13/25 16:01 Months Date of Last Transfusion (if within last 3 months) Ever experience any problems No 03/13/25 16:01 with transfusion(s)? Specify any problems Hx of Preganancy in last 3 No 03/13/25 16:01 Months Nurse Filling Out Transfusion EHHEBER 03/13/25 16:01 & Questions: Date: 03/13/25 03/13/25 16:01 Time: 16:02 03/13/25 16:01 Patient unable to answer at this time (ie. confused, unrespo /Reproduction History /Reproductive History - non destructive tester: /Reproductive Hx- non destructive tester Hx Now No 03/13/25 16:01 Gestational Age [...] 03/15/25 1220 lyubov DOOLEY> Date _ Milton Martínez MD Cosigner Signature: Date CC: ~ Signed [id number] History and physical note [facility] Medical Records Department [address] [place] [address] History & Physical Exam 03/15/25 1155 MR#: [id number] Acct: [id number] Name: CAROLINA HIGHTOWER Rep #:[id number] : 1975 49 From: Marcelina Friend DO PCP: Eyad Saeed [facility] SENIOR PROFESSIONAL SERVICES CONSULTANT-C Status:REG [facility] Location: [place] [address] HPI - General General Date of Admission: 03/15/25 Date of Service: 03/15/25 Chief Complaint: Varices surveillance HPI Narrative CAROLINA HIGHTOWER, is a 49 F with a history of alcoholic cirrhosis CT abd/pel 06.12.21 pain HCV Hx with moderately cirrhotic liver with volume redistribution to right lobe without ascites; moderate splenomegaly; inflammation of subhepatic space r/t right colon. Fib4 8.76 ? [facility] hospitalization 05.19.22-05.21.22. [facility] ED with increased fatigue, forgetfulness and [...] Fib4 11.76 ? *BGI established 08.27.22 following [facility] hospitalization as noted above. ?EGD 09.15.22 noting Grade I esophageal varices; severe portal HTNgastropathy. H.Pylori negative. ?Recommend liver biopsy Liver biopsy scheduled for 10.01.22, not performed. [facility] hospitalization 07.20.23-07.21.23 [facility] ED with toe pain, abdominal distention. [...] his spironolactone 100 mg daily. ?Continue lactulose. [facility] ED 05.11.24 Abdominal pain. Received Protonix [...] EGD from her one earlier this year. [facility] Op 05.13.24- Cystoscopy and R ureteral [...] 06.22.24 Unaware of current medications. Would like case assistant to help manage medication. ?Doesnot have PCP. ?Fatigue and weakness. Generalized abdominal distention and pain. Nausea after eating, Alternating constipation anddiarrhea. Heartburn after eating acidic food/drinks. OV 01.23.25 D/C from [facility]. She went to [place] ED on 01/17/2025 for epistaxis. She ran [...] couple weeks, possibly attributes to sinus infection. [facility] Medical History Dietary restriction History of pain [...] score 15 from labs 01/17/2025 done in [facility] ED Continue diuretic furosemide 40 mg daily [...] 1206 Cosigner Signature (if applicable): CC: Marcelina Foster, DO; Eyad DYER SENIOR PROFESSIONAL SERVICES CONSULTANT-C Beam~ Signed [facility]06-20-[address] [facility] Radiology Diagnostic study note [facility] Imaging Services [address] [place] [address] Abdomen Limited MR#: [id number] Acct: [id number] Name: CAROLINA HIGHTOWER RADHA Rep #: [id number] : 1975 F 49 From: Hernesto Burnett MD PCP: Dr. Sno Adams MD Status: REG CLI Study:Abdomen Limited Date of Exam: 02/24 11/20 Exam# [id number] Ordering Dr: Senait Quintero MD PROCEDURE: ABDOMEN [...] ascitic fluid for safe paracentesis. Reading Location: [facility] CC: Dr. Son Adams MD; Dr. Shon Quintero MD ~ Wireless Team Member: Signed [facility]06-03-2025 Discharge summary [facility] Medical Records Department [address] [place] [address] Emergency Department Summary 02/26/25 MR#: [id number] Acct: [id number] Name: YUDITH HIGHTOWERAmbreen GARCIA Rep #:[id number] : 1975 49 From: Brock girard PCP: RADHA VictoriaC Status:REG E R Location: ED HPI History of Present Illness Chief Complaint: Nosebleed PFSH PFSH Medical History Decompensated cirrhosis Abdominal ascites Redness [...] Instructions: start on 04/14/24 Primary Care Provider: Tersa Sandoval Referrals: Tresa Sandoval NP-C [Primary Care Provider] - Print Language: Samoan What to do if you have Problems For any increased pain, shortness of breath, bleeding, nausea or vomiting, chestpain, or any unexpected problems, contact your Primary Care Provider. Call [facility] ([phone]) or report tothe closest Emergency Room. Call 911 if necessary. 02/26/252155 Cosigner Signature (if applicable): CC: CONCHIS Sandoval ~ Signed [facility]06-03-2025 Discharge summary Author Brock Mora-Saad [facility] Note Date/Time February 26, 2025 10:01 pm [facility] Medical Records Department [address] [place] [address] Emergency Department Summary 02/26/25 MR#: [id number] Acct: [id number] Name: CAROLINA HIGHTOWER Rep #:[id number] : 1975 49 From: Brock girard DO PCP: Tresa Sandoval SENIOR PROFESSIONAL SERVICES CONSULTANT-C Status:REG E R Location: ED HPI History of Present Illness Chief Complaint: Nosebleed [facility] Medical History Decompensated cirrhosis Abdominal ascites [...] NP-C [Primary Care Provider] - Print Language: Samoan What to do if you have Problems For any increased pain, shortness of breath, bleeding, nausea or vomiting, chestpain, or any unexpected problems, contact your Primary Care Provider. Call [facility] ([phone]) or report to the closest Emergency Room. Call 911 if necessary. 02/26/252155 <Electronically signed by Brock Ruiz DO> Cosigner Signature (if applicable): CC: CONCHIS Sandoval ~ Signed [facility] Work Phone: 1(112) 448-693105-30-2025 Radiology Diagnostic study note [facility] Imaging Services [address] [place] [address] Chest PA and Lateral MR#: [id number] Acct: [id number] Name: CAROLINA HIGHTOWER Rep #: [id number] : 1975 F 49 From: Miquel Gu MD PCP: CONCHIS Victoria Status: REG E R Study:Chest PA and Lateral Date of Exam: 02/21/25 Exam# [id number] Ordering Dr: Pedrito Rosario DO PROCEDURE: CHEST [...] No evidence of acute process. Reading Location: [id number] CC: SENIOR PROFESSIONAL SERVICES CONSULTANT-C Tresa Sandoval; Dr. Pedrito Rosario, ~ Wireless Team Member: Signed [facility]05-30-2025 Radiology Diagnostic study note [facility] Imaging Services [address] [place] [address] [id number] Abdomen/Pelvis without Cont MR#: [id number] Acct: [id number] Name: CAROLINA HIGHTOWER Rep #: [id number] : 1975 F 49 From: Miquel Gu MD PCP: CONCHIS Victoria Status: REG E R Study:Abdomen/Pelvis without Cont Date of Exa m: 02/21/25 Exam# [id number] Ordering Dr: Pedrito Rosario DO PROCEDURE: ABDOMEN/PELVIS [...] not exclude an inflammatory/infectious process. Reading Location: [id number] CC: CONCHIS Sandoval; Dr. Pedrito Rosario DO ~ Wireless Team Member: Signed [facility]05-16-2025 Discharge summary [facility] Medical Records Department [address] [place] [address] Emergency Department Summary 02/08/25 MR#: [id number] Acct: [id number] Name: CAROLINA HIGHTOWER Rep #:[id number] : 1975 49 From: Chris Ramos MD PCP: CONCHIS Victoria Status:REG E R Location: ED [facility] History of Present Illness Chief Complaint: Abd [...] as well as her PCP at the [facility], she has had a referral put [...] here to the ER according to her. [facility] Medical History Decompensated cirrhosis Abdominal ascites [...] that appointment yet. She had been at [facility] and was transferred to [place] because they thought that she only had [...] this time. I also did check an [facility] report, she has rare prescriptions for antibiotics and none of them have been recent. History & Record Review Additional record(s) reviewed:: Prior ED visit Management Discussion w/another healthcare provider: social worker clinical/Case management Discharge Plan Triage Chief Complaint: Abd [...] seeing palliativecare or pain management) Print Language: Samoan Disposition Disposition: Home, Self Care What to do if you have Problems For any increased pain, shortness of breath, bleeding, nausea or vomiting, chestpain, or any unexpected problems, contact your Primary Care Provider. Call [facility] ([phone]) or report tothe closest Emergency Room. Call 911 if necessary. 02/08/25 1236 Cosigner Signature (if applicable): CC: CONCHIS Sandoval ~ Signed [facility]05-12-2025 Radiology Diagnostic study note [facility] Imaging Services [address] [place], [place] [address] Abdomen/Pelvis W IV Cont ONLY MR#: [id number] Acct: [id number] Name: KATJACAROLINAAmbreen GARCIA Rep #: [id number] : 1975 F 49 From: Hernesto Burnett MD PCP: [facility] Status: REG ER Study:Abdomen/Pelvis W IV Cont ONLY Date of E xam: 02/04/25 Exam# [id number] Ordering Dr: Michi Cope DO PROCEDURE: ABDOMEN/PELVIS [...] colitis of the right hemicolon. Reading Location: [id number] CC: Dr. Michi Cope DO; [facility] [place] ~ Wireless Team Member: Signed [facility]04-30-2025 Evaluation note* Diagnosis Onset Date Resolution Status Admit Date Cirrhosis of liver chronic January 23, 2025 2:48pm Hepatitis C, chronic chronic Apri l 2024 2:48pm [facility] Work Phone: 1(914) 913-998004-30-2025 Evaluation note* Diagnosis Onset Date Resolution Status Admit Date Cirrhosis of liver chronic January 23, 2025 2:48pm Hepatitis C, chronic chronic Apri l 2024 2:48pm Cirrhosis of liver chronic February 252024 11:15am Hepatitis C, chronic chronic March 15, 2025 11:15am [facility] Work Phone: 1(965) 157-837504-24-2025 Hospital Discharge instructions Patient Education 01/17/2025 17:02:21 [...] groups for people with liver disease, contact: [employer], www.liverfoundation.org, [employer], www.hepfi.org, When to seek medical advice Call your healthcare provider right away if you have any of the following: Rapid weight gain with increased size of your belly (abdomen) or leg swelling Yellow color of your skin or eyes (jaundice) gets worse Excess bleeding from cuts or injuries 3404-4242 [employer]. [address] [place] [address]. All rights reserved. This information is not intended as a substitute for professional medical care. Always follow yourhealthcare professional's instructions. Follow Up Care 01/17/2025 12:28:54 With:[facility]) Address: [address] [place] [phone] Business (1) When:2-4 days With:Go to emergency room if symptoms worsen Address: When: Unknown With:MARCELINA FOSTER DO Address: [address] [place] [phone] When:2-[address] [facility] 04-24-2025 Emergency department Discharge summary Discharge Instructions Thank you for allowing [facility] to assist you with your healthcare needs. The following is importantdischarge information regarding your hospital visit. Diagnosis from Today's Visit Cirrhosis of liver What to Do Next Instructions from Your Care Team No qualifying data available. Post Acute Orders No qualifying data available. You Need to Schedule the Following Appointments Follow Up with [facility]) When:Within 2-4 days Where:[address] [place] [phone] [employer] (1) Follow Up with Go to emergency room if symptoms worsen Follow Up with MARCELINA FOSTER DO When:Within 2-4 days Where:[address] [place] [address] [phone] Allergies Wellbutrin aspirin Hives codeine Hives Medications [...] groups for people with liver disease, contact: [employer], www.liverfoundation.org, [employer], www.hepfi.org, When to seek medical advice Call your healthcare provider right away if you have any of the following: Rapid weight gain with increased size of your belly (abdomen) or leg swelling Yellow color of your skin or eyes (jaundice) gets worse Excess bleeding from cuts or injuries 7569-8486 [employer]. [address] [place] [address], [place] [address]. All rights reserved. This information is not intended as a substitute for professional medical care. Always follow yourhealthcare professional's instructions. Additional Information VACCINATE! IT SAVES LIVES! Members of the community who have not yet received the COVID-19 vaccine and would like to receive it can visit one of [facility] vaccine clinics. There are many vaccine clinic locations within the [facility]. For locations and available times, please visit www.[email or web address].[email or web address]/. It is important to note that some COVID mobile vaccine clinics are held outdoors and may be canceled in rainy or stormy conditions. To learn more about pediatric vaccinations (ages 5-11), we invite you to visit the [facility] webpage. https://[email or web address]/[email or web address] [email or web address] learn more about the COVID-19 vaccine, we invite you to visit the CDC website for a list of frequently asked questions. https://www.cdc.gov/coronavirus/2019-ncov/vaccines/faq.html [facility] Patient Portal Access Instructions: Stay connected with your healthcare team and access your personal medical information anytime with the [facility] Patient Portal. If you would like a full copy of your medical records please contact the [facility] Medical Records Department Tuesday through Tuesday between 8a.m. and 4:30p.m. Please follow the directions below to access the portal: 1.Access the email account you provided upon registration to the [facility].2.Look for an invitation email from [facility].3.Open the email and access the invitation link: Accept Invitation to [facility]4.Fill in the required dhillon to create your account. Sign into [email or web address] with your username and password that you [...] you will allow to register on the [facility] Patient Portal for access to your information. You can also access the [facility] Patient Portal on the [facility]. Simply click on "Health Records" under "[employer]" and then click on the [employer] logo. HOW TO SAFELY DISPOSE OF PRESCRIPTION [...] Call your local pharmacy or go to [email or web address] to find one close to you.3.Make use of household items: Use cat litter or old coffee grounds to dispose medications if other options arenot available. Mix your drugs with these household products, seal them in an airtight container andthrow it into the garbage. Call [facility]: [phone] to be sure your drugs can be [...] aware that I should contact my doctor. Patient/Medical Insurance Biller Signature: Date/Time: Relationship to Patient: Witness Name/Signature: Date/Time: [facility] [id number] Note* Exam Date Time Procedure Performing Provider Status 01/17/25 5:08 PM EKG (ED) - CV MD CEE, BROOKLYN DOOLEY; Auth (Verified) ECG Final Report SINUS RHYTHM Electronic Signature: MD MIKE TIMOTHY MD 01/17/2025 17:53:[address] [facility] [id number] Note* Exam Date Time Procedure Performing Provider Status 01/17/25 3:15 PM XR Chest 1 View DAILY HAYES MD; Auth (Verified) [id number] ORIGINAL EXAMINATION: ONE XRAY VIEW OF THE [...] Date: 01/17/2025 3:37:07 PM Ordering Provider[facility]* Care Plan Note - [...] Adequate nutritional intake Description: Interventions: -Consult to motorcycle assembler -Intake and output measurement -Calorie count if [...] use cessation methods Outcome: Adequate for Discharge [facility]03-20-2025 Miscellaneous Notes* Care Plan Note - Yumiko [...] Adequate nutritional intake Description: Interventions: -Consult to motorcycle assembler -Intake and output measurement -Calorie count if [...] AM EDT PT treatment # 1 Room: [address] [place] [address] Precautions: Fall risk/Unsteadiness, Generalized weakness Weight Bearing [...] Independent Supine to sit: Modified independent - Francisco (Mat donned her own shoes while sitting [...] per patient tolerance and collaborate with oncoming PT/catering administrative assistant for handoff care in preparation for D/C. [...] Totals Intake/Output 12/12/24 0700 - 12/13/24 [phone] Total Intake P.O. 375 400 775 I.V. [...] Adequate nutritional intake Description: Interventions: -Consult to motorcycle assembler -Intake and output measurement -Calorie count if [...] Totals Intake/Output 12/11/24 07 - 12/12/24 0659 12/12/24 07 - 12/13/24 [phone] 0467-7940 Total 1969-0513 9066-9244 Total Intake P.O. 600 0 600 375 [...] Adequate nutritional intake Description: Interventions: -Consult to motorcycle assembler -Intake and output measurement -Calorie count if [...] Adequate nutritional intake Description: Interventions: -Consult to motorcycle assembler -Intake and output measurement -Calorie count if [...] Totals Intake/Output 12/11/24 0700 - 12/12/24 0659 3496-3649 1161-3311 Total Intake P.O. 600 0 600 I.V. [...] Next of Kin/Decision Maker: Vannesa Hightower (Daughter) [phone] (H) Comments: If there comes a time the patient is unable to make their own medical decisions, the above named is the closest living relative for decision making purposes. Mary NAM Social Work * Care Plan Note - Mary Haynes BSW - 12/11/2024 10:38 AM EDT SW DISCHARGE/TREATMENT PLAN: 12/11/24 Pt to return to [facility] [phone] 1. Anticipate DC to home once medically [...] Adequate nutritional intake Description: Interventions: -Consult to motorcycle assembler -Intake and output measurement -Calorie count if [...] Totals Intake/Output 12/10/24 0700 - 12/11/24 [phone] Total Intake P.O. 350 360 710 I.V. [...] Adequate nutritional intake Description: Interventions: -Consult to motorcycle assembler -Intake and output measurement -Calorie count if [...] * End of Shift Note - Chilo HenryGERTRUDE - 12/10/2024 6:42 PM EDT Nursing End [...] (Not Admitted) 12/10/24 0700 - 12/11/24 0659 [phone] Total 5576-4445 3899-2231 Total Intake P.O. -- -- -- 350 [...] Adequate nutritional intake Description: Interventions: -Consult to motorcycle assembler -Intake and output measurement -Calorie count if [...] cessation methods Outcome: Ongoing [facility]* Care Plan Note - Yessenia Sarabia - 12/13/2024 10:38 AM EDT PT treatment # 1 Room: 3C153/7U483K Precautions: Fall risk/Unsteadiness, Generalized weakness Weight Bearing [...] Supine to sit: Modified independent - Patient (I)'mily donned her own shoes while sitting on [...] per patient tolerance and collaborate with oncoming PT/catering administrative assistant for handoff care in preparation for D/C. Treatment time: therapeutic exercises=8 minutes / gait training=15 minutes [facility]03-20-2025 Note* End of Shift Note - Liudmila [...] Totals Intake/Output 12/12/24 0700 - 12/13/24 0659 7535-3003 8896-5701 Total Intake P.O. 375 400 775 I.V. [...] Discharge Date Education Provided Other (Comment) none [facility]03-20-2025 Note* Care Plan Note - Liudmila William [...] Adequate nutritional intake Description: Interventions: -Consult to motorcycle assembler -Intake and output measurement -Calorie count if [...] Education, tobacco use cessation methods Outcome: Ongoing [facility]03-19-2025 Note* Handoff Documentation - Yumiko Gardiner LPN - 12/12/2024 7:13 PM EDT Handoff report given to GERTRUDE Grijalva. Vitals, labs, skin integrity and events through shift discussed. All questions/concerns addressed. 12 hour chart check complete. Bedside handoff complete. Patientresting in bed, denies any needs. Call light within reach and encouraged. [facility]03-19-2025 Note* End of Shift Note - Yumiko [...] 12/12/24 0659 12/12/24 07 - 12/13/24 [phone] 1424-1147 Total 0677-4560 8597-9219 Total Intake P.O. 600 0 600 375 [...] Planning Home Expected Discharge Date Education Provided [facility]03-19-2025 Note* Care Plan Note - Yumiko Gardiner [...] Adequate nutritional intake Description: Interventions: -Consult to motorcycle assembler -Intake and output measurement -Calorie count if [...] Education, tobacco use cessation methods Outcome: Ongoing [facility]03-19-2025 History of Present illness Narrative* Isabella Ch MD - 12/12/2024 2:42 PM EDT HOSPITAL MEDICINE PROGRESS NOTE Patient: Carolina Hightower Room: 3C153/4H305Y Admit Date: 12/10/2024 Hospital Day: LOS: 0 [...] PM EDT Bedside report received from Will. BINDERY MACHINE OPERATOR. Pt alert and oriented x3. No signs [...] 12/11/2024 The patient was seen independently by SENIOR PROFESSIONAL SERVICES CONSULTANT however the patient's plan/recommendations were discussed with me and approved. The patient was not evaluated by me. Signed: Katharina Welsh M.D., MD 12/12/2024 5:45 PM * Isabella Ch MD - 12/11/2024 4:26 PM EDT HOSPITAL MEDICINE PROGRESS NOTE Patient: Carolina Hightower Room: [facility] Admit Date: 12/10/2024 Hospital Day: LOS: [...] time. Will monitor closely. documented in this encounterSaint [facility]-2025 Consult note* Tomer Kilpatrick, PT - 12/12/2024 2:23 PM EDT PT Functional Evaluation Patient: Carolina Hightower Admitted: 12/10/2024 1:01 AM Height: 5' 2" (157.5 cm) Weight: 82.9 kg (182 lb 12.2 oz) BMI (Calculated): 33.4 Age: 49 y.o. LOS: 0 days Room # - 3C153/2R626W General Information Current Hospital Problem List - Principal Problem: Cirrhosis of liver with ascites Active Problems: Abdominal pain PMH - Past Medical History: Diagnosis Date Ascites Bipolar disorder Chronic hepatitis C virus infection Cirrhosis Kidney stone PSH - Past Surgical History: Procedure Laterality Date HX EGJ N/A 09/07/2024 EGD /C BIOPSY performed by Katharina Welsh MD at [facility] HX EGJ 09/07/2024 EGD /C BAND LIGATION VARICES performed by Katharina Welsh MD at [facility] HX LIVER BIOPSY HX POST STERILIZATION PARACENTESIS N/A 07/02/2024 Paracentesis performed by Max Rico MD at [facility] PARACENTESIS N/A 07/09/2024 Paracentesis performed by Ginger Milton MD at [facility] PARACENTESIS N/A 07/19/2024 Paracentesis performed by Minda Gómez MD at [facility] PARACENTESIS N/A 07/26/2024 Paracentesis performed by Max Rico MD at [facility] PARACENTESIS N/A 08/02/2024 Paracentesis performed by Ginger Milton MD at [facility] PARACENTESIS N/A 08/09/2024 Paracentesis performed by Minda Gómez MD at [facility] PARACENTESIS N/A 08/16/2024 Paracentesis performed by Ginger Milton MD at [facility] PARACENTESIS N/A 08/22/2024 Paracentesis performed by Max Rico MD at [facility] PARACENTESIS N/A 08/30/2024 Paracentesis performed by Minda Gómez MD at [facility] PARACENTESIS N/A 09/04/2024 Paracentesis performed by Ginger Milton MD at [facility] PARACENTESIS N/A 09/13/2024 Paracentesis performed by Max Rico MD at [facility] PARACENTESIS N/A 09/20/2024 Paracentesis performed by Minda Gómez MD at [facility] PARACENTESIS N/A 09/27/2024 Paracentesis performed by Ginger Milton MD at [facility] PARACENTESIS N/A 10/03/2024 Paracentesis performed by Max Rico MD at [facility] PARACENTESIS N/A 10/18/2024 Paracentesis performed by Ginger Milton MD at [facility] PARACENTESIS N/A 11/28/2024 Paracentesis performed by Minda Gómez MD at [facility] PARACENTESIS N/A 12/06/2024 Paracentesis performed by Max Rico MD at [facility] PARACENTESIS N/A 12/10/2024 Paracentesis performed by Ginger Milton MD at [facility] ULTRASOUND GUIDANCE N/A 07/02/2024 Ultrasound Guidance performed by Max Rico MD at [facility] ULTRASOUND GUIDANCE N/A 07/09/2024 Ultrasound Guidance performed by Ginger Milton MD at [facility] ULTRASOUND GUIDANCE N/A 07/19/2024 Ultrasound Guidance performed by Minda Gómez MD at [facility] ULTRASOUND GUIDANCE N/A 07/26/2024 Ultrasound Guidance performed by Max Rico MD at [facility] ULTRASOUND GUIDANCE N/A 08/02/2024 Ultrasound Guidance performed by Ginger Milton MD at [facility] ULTRASOUND GUIDANCE N/A 08/09/2024 Ultrasound Guidance performed by Minda Gómez MD at [facility] ULTRASOUND GUIDANCE N/A 08/16/2024 Ultrasound Guidance performed by Ginger Milton MD at [facility] ULTRASOUND GUIDANCE N/A 08/22/2024 Ultrasound Guidance performed by Max Rico MD at [facility] ULTRASOUND GUIDANCE N/A 08/30/2024 Ultrasound Guidance performed by Minda Gómez MD at [facility] ULTRASOUND GUIDANCE N/A 09/04/2024 Ultrasound Guidance performed by Ginger Milton MD at [facility] ULTRASOUND GUIDANCE N/A 09/13/2024 Ultrasound Guidance performed by Max Rico MD at [facility] ULTRASOUND GUIDANCE N/A 09/20/2024 Ultrasound Guidance performed by Minda Gómez MD at [facility] ULTRASOUND GUIDANCE N/A 09/27/2024 Ultrasound Guidance performed by Ginger Milton MD at [facility] ULTRASOUND GUIDANCE N/A 10/03/2024 Ultrasound Guidance performed by Max Rico MD at [facility] ULTRASOUND GUIDANCE N/A 10/18/2024 Ultrasound Guidance performed by Ginger Milton MD at [facility] ULTRASOUND GUIDANCE N/A 10/30/2024 Ultrasound Guidance performed by Minda Gómez MD at [facility] ULTRASOUND GUIDANCE N/A 11/28/2024 Ultrasound Guidance performed by Minda Gómez MD at [facility] ULTRASOUND GUIDANCE N/A 12/06/2024 Ultrasound Guidance performed by Max Rico MD at [facility] ULTRASOUND GUIDANCE N/A 12/10/2024 Ultrasound Guidance performed by Ginger Milton MD at [facility] Attending Physicians - Isabella Ch MD PT Order - Orders Placed This Encounter Procedures PT Eval and Treat -Debility - Standing Status: Standing Number of Occurrences: 1 Order Specific Question: Reason for PT Eval Answer: Debility Surgical Intervention - Paracentesis on 12/10/24. [place] [address] Radiology PATIENT NAME: Carolina Hightower MR#: [id number] PROCEDURE DATE: 12/10/2024 ROOM#: [id number] ORDERING PHYS: Miranda Mootz PROCEDURE: Right upper [...] Zimmer MD arlen TD: 12/10/2024 JOB #: [id number] Radiology Page 1 of 1 COPY Wireless Team Member: Read by: Saud Pierre MD [place] [id number] Radiology PATIENT NAME: Carolina Hightower MR#: [id number] PROCEDURE DATE: 12/11/2024 ROOM#: [id number] ORDERING PHYS: Isabella Ch Clinical history: Low [...] Parmar MD dd TD: 12/11/2024 JOB #: [id number] Radiology Page 1 of 1 COPY Wireless Team Member: Read by: Bill Vasques MD [facility] [address] [place] [address] Radiology PATIENT NAME: Carolina Hightower MR#: [id number] PROCEDURE DATE: 12/12/2024 ROOM#: [id number] ORDERING PHYS: Lyssa Farrell PROCEDURE: MRI ABDOMEN [...] Zimmer MD arlen TD: 12/12/2024 JOB #: [id number] Radiology Page 1 of 1 COPY Wireless Team Member: Read by: Saud Pierre MD Diagnostic/Lab Tests [...] patient states that she lives at the [facility]. She states that she was independent [...] limitations &/or participation restrictions Typical time spent bfeb-lv-koth with patient 77747 Low 0 1-2 elements 20 minutes 65789 Moderate 1-2 3+ 30 minutes 53034 High 3+ 4+ 45 minutes 62526 Re-evaluation Change in status Change in status 20 minutes Evaluation Time: 10 minutes Physical Therapy Evaluation Complexity & Code: Low / 59307 Standardized Testing: MMT and ROM testing, gait, [...] Life, and Community, Social and Civic Life [facility]03-19-2025 Consult note* Tomer Kilpatrick, PT - 12/12/2024 2:23 PM EDT PT Functional Evaluation Patient: Carolina Hightower Admitted: 12/10/2024 1:01 AM Height: 5' 2" (157.5 cm) Weight: 82.9 kg (182 lb 12.2 oz) BMI (Calculated): 33.4 Age: 49 y.o. LOS: 0 days Room # - 3C153/[id number] General Information Current Hospital Problem List - Principal Problem: Cirrhosis of liver with ascites Active Problems: Abdominal pain PMH - Past Medical History: Diagnosis Date Ascites Bipolar disorder Chronic hepatitis C virus infection Cirrhosis Kidney stone PSH - Past Surgical History: Procedure Laterality Date HX EGJ N/A 09/07/2024 EGD /C BIOPSY performed by Katharina Welsh MD at [facility] HX EGJ 09/07/2024 EGD /C BAND LIGATION VARICES performed by Katharina Welsh MD at [facility] HX LIVER BIOPSY HX POST STERILIZATION PARACENTESIS N/A 07/02/2024 Paracentesis performed by Max Rico MD at [facility] PARACENTESIS N/A 07/09/2024 Paracentesis performed by Ginger Milton MD at [facility] PARACENTESIS N/A 07/19/2024 Paracentesis performed by Minda Gómez MD at [facility] PARACENTESIS N/A 07/26/2024 Paracentesis performed by Max Rico MD at [facility] PARACENTESIS N/A 08/02/2024 Paracentesis performed by Ginger Milton MD at [facility] PARACENTESIS N/A 08/09/2024 Paracentesis performed by Minda Gómez MD at [facility] PARACENTESIS N/A 08/16/2024 Paracentesis performed by Ginger Milton MD at [facility] PARACENTESIS N/A 08/22/2024 Paracentesis performed by Max Rico MD at [facility] PARACENTESIS N/A 08/30/2024 Paracentesis performed by Minda Gómez MD at [facility] PARACENTESIS N/A 09/04/2024 Paracentesis performed by Ginger Milton MD at [facility] PARACENTESIS N/A 09/13/2024 Paracentesis performed by Max Rico MD at [facility] PARACENTESIS N/A 09/20/2024 Paracentesis performed by Minda Gómez MD at [facility] PARACENTESIS N/A 09/27/2024 Paracentesis performed by Ginger Milton MD at [facility] PARACENTESIS N/A 10/03/2024 Paracentesis performed by Max Rico MD at [facility] PARACENTESIS N/A 10/18/2024 Paracentesis performed by Ginger Milton MD at [facility] PARACENTESIS N/A 11/28/2024 Paracentesis performed by Minda Gómez MD at [facility] PARACENTESIS N/A 12/06/2024 Paracentesis performed by Max Rico MD at [facility] PARACENTESIS N/A 12/10/2024 Paracentesis performed by Ginger Milton MD at [facility] ULTRASOUND GUIDANCE N/A 07/02/2024 Ultrasound Guidance performed by Max Rico MD at [facility] ULTRASOUND GUIDANCE N/A 07/09/2024 Ultrasound Guidance performed by Ginger Milton MD at [facility] ULTRASOUND GUIDANCE N/A 07/19/2024 Ultrasound Guidance performed by Minda Gómez MD at [facility] ULTRASOUND GUIDANCE N/A 07/26/2024 Ultrasound Guidance performed by Max Rico MD at [facility] ULTRASOUND GUIDANCE N/A 08/02/2024 Ultrasound Guidance performed by Ginger Milton MD at [facility] ULTRASOUND GUIDANCE N/A 08/09/2024 Ultrasound Guidance performed by Minda Gómez MD at [facility] ULTRASOUND GUIDANCE N/A 08/16/2024 Ultrasound Guidance performed by Ginger Milton MD at [facility] ULTRASOUND GUIDANCE N/A 08/22/2024 Ultrasound Guidance performed by Max Rico MD at [facility] ULTRASOUND GUIDANCE N/A 08/30/2024 Ultrasound Guidance performed by Minda Gómez MD at [facility] ULTRASOUND GUIDANCE N/A 09/04/2024 Ultrasound Guidance performed by Ginger Milton MD at [facility] ULTRASOUND GUIDANCE N/A 09/13/2024 Ultrasound Guidance performed by Max Rico MD at [facility] ULTRASOUND GUIDANCE N/A 09/20/2024 Ultrasound Guidance performed by Minda Gómez MD at [facility] ULTRASOUND GUIDANCE N/A 09/27/2024 Ultrasound Guidance performed by Ginger Milton MD at [facility] ULTRASOUND GUIDANCE N/A 10/03/2024 Ultrasound Guidance performed by Max Rico MD at [facility] ULTRASOUND GUIDANCE N/A 10/18/2024 Ultrasound Guidance performed by Ginger Milton MD at [facility] ULTRASOUND GUIDANCE N/A 10/30/2024 Ultrasound Guidance performed by Minda Gómez MD at [facility] ULTRASOUND GUIDANCE N/A 11/28/2024 Ultrasound Guidance performed by Minda Gómez MD at [facility] ULTRASOUND GUIDANCE N/A 12/06/2024 Ultrasound Guidance performed by Max Rico MD at [facility] ULTRASOUND GUIDANCE N/A 12/10/2024 Ultrasound Guidance performed by Ginger Milton MD at [facility] Attending Physicians - Isabella Ch MD PT Order - Orders Placed This Encounter Procedures PT Eval and Treat -Debility - Standing Status: Standing Number of Occurrences: 1 Order Specific Question: Reason for PT Eval Answer: Debility Surgical Intervention - Paracentesis on 12/10/24. [place] [address] Radiology PATIENT NAME: Carolina Hightower MR#: [id number] PROCEDURE DATE: 12/10/2024 ROOM#: [id number] ORDERING PHYS: Miranda Marques PROCEDURE: Right upper [...] Zimmer MD jp TD: 12/10/2024 JOB #: [id number] Radiology Page 1 of 1 [employer] Team Member: Read by: [place] [address] Radiology PATIENT NAME: Carolina Hightower MR#: [id number] PROCEDURE DATE: 12/11/2024 ROOM#: [id number] ORDERING PHYS: Isabella Ch Clinical history: Low [...] Parmar MD dd TD: 12/11/2024 JOB #: [id number] Radiology Page 1 of 1 COP[employer] Team Member: Read by: Bill Vasques MD [facility] [address] [place] [address] Radiology PATIENT NAME: Carolina Hightower MR#: [id number] PROCEDURE DATE: 12/12/2024 ROOM#: [id number] ORDERING PHYS: Lyssa Farrell PROCEDURE: MRI ABDOMEN [...] Zimmer MD jp TD: 12/12/2024 JOB #: [id number] Radiology Page 1 of 1 [employer] Team Member: Read by: Saud Pierre MD Diagnostic/Lab Tests - HBG: Lab Results Component Value Date/Time HGB 12.6 12/12/2024357 Glucose: Lab Results Component Value Date/Time GLUCOSE 88 12/12/2024357 Coagulation: Lab Results Component Value Date/Time APTT 41.3 12/10/2024401 PROTIME 20.1 12/10/2024401 INR 1.7 12/10/2024401 Urinalysis: No results found for this visit [...] patient states that she lives at the [facility]. She states that she was independent [...] limitations &/or participation restrictions Typical time spent [id number] with patient 45258 Low 0 1-2 elements 20 minutes 57095 Moderate 1-2 3+ 30 minutes 58305 High 3+ 4+ 45 minutes 27707 Re-evaluation Change in status Change in status 20 minutes Evaluation Time: 10 minutes Physical Therapy Evaluation Complexity & Code: Low / 17011 Standardized Testing: MMT and ROM testing, gait, [...] Social and Civic Life * Mary Haynes, PRODUCT SCIENTIST - 12/11/2024 10:24 AM EDTAssociated Order(s): IP CONSULT TO SOCIAL WORK SOCIAL WORK ASSESSMENT DATE: 12/11/24 PATIENT NAME: Carolina Hightower MEDICAL UNIT: [id number] PURPOSE OF SOCIAL WORK INTERVENTION/REFERRAL: SW consulted for, "dcp" ASSESSMENT: Interview conducted with/Information obtained from: A review of the pt medical record, spoke with tx team, as well as discussion with patient at bedside. Identifying Information & Presenting Problem: Per H&P, "Patient is a 49 y.o. female with PMHx noted below, presenting via transfer from [facility] with c/o LLQ abdominal pain and lower back pain. She states the pain is "bubbling" and couldnot elaborate further, and it's been there for about a week, around the same time when she had her paracentesis on 12/06/24 at [facility]. Patient denies LANCE, fever, chill, nausea/vomiting, chest pain, shortness of breath, dizziness, palpitations, focal motor/sensory deficit, dysuria, or diarrhea. During [facility] w/u DIGITAL COMMENTATOR, the pt underwent a CT abd w/ contrast that showed cirrhosis, portal HTN, and moderate volume ascites. " Living Situation: Pt lives at the [facility]. Daily Functional Status DIGITAL COMMENTATOR: Patient is independent with ADL's. Support System: Family Medical Equipment: N/A Home Care Services (HH, Passport, Waiver, Private Caregivers, MOW etc) and Preferred Provider: Pt defers HH at this time. Community Services (mental health services, speciality clinics such as coumadin clinic, mental health services): [facility] IDENTIFIED SOCIAL DETERMINATES OF HEALTH (if yes [...] DIRECTIVES/NEXT OF KIN IDENTIFICATION: Vannesa Hightower (Daughter) [phone] (H) No AD on file in [facility]. DISCUSSION & INTERVENTION: Treatment Team/Social Work Assessment of Needs and Disposition: Discussed dcp and possible needs. Patient & Family Perspective of Needs and Disposition: SW spoke with patient at bedside. Pt plans to return to [facility] upon d/c. Pt defers HH at this time. No DME needed. Left voicemail with [facility] regarding transport. SW to follow. Discussion: SW educated patient on the role of the SW and that SW will continue to follow. SW informed patient that treatment options may vary based on the healthcare team recommendations and patient's progress.Patient voiced understanding. SW DISCHARGE/TREATMENT PLAN: 12/11/24 Pt to return to [facility], [place]- [phone] 1. Anticipate DC to home once medically stable. 2. Pt defers HH 3. SW to follow. Mary NAM Social Work * Katharina Welsh MD - 12/10/2024 11:00 AM EDTAssociated Order(s): IP CONSULT TO GASTROENTEROLOGY GASTROENTEROLOGY CONSULT NOTE Miranda Marques 12/10/2024 Patient Name: Carolina Hightower : 1975 Medical Record: [id number] REQUESTING PHYSICIAN Isabella Ch MD PRIMARY CARE [...] BIOPSY performed by Katharina Welsh MD at [facility] HX EGJ 09/07/2024 EGD /C BAND LIGATION VARICES performed by Katharina Welsh MD at [facility] HX LIVER BIOPSY HX POST STERILIZATION PARACENTESIS N/A 07/02/2024 Paracentesis performed by Max Rico MD at [facility] PARACENTESIS N/A 07/09/2024 Paracentesis performed by Ginger Milton MD at [facility] PARACENTESIS N/A 07/19/2024 Paracentesis performed by Minda Gómez MD at [facility] PARACENTESIS N/A 07/26/2024 Paracentesis performed by Max Rico MD at [facility] PARACENTESIS N/A 08/02/2024 Paracentesis performed by Ginger Milton MD at [facility] PARACENTESIS N/A 08/09/2024 Paracentesis performed by Minda Gómez MD at [facility] PARACENTESIS N/A 08/16/2024 Paracentesis performed by Ginger Milton MD at [facility] PARACENTESIS N/A 08/22/2024 Paracentesis performed by Max Rico MD at [facility] PARACENTESIS N/A 08/30/2024 Paracentesis performed by Minda Gómez MD at [facility] PARACENTESIS N/A 09/04/2024 Paracentesis performed by Ginger Milton MD at [facility] PARACENTESIS N/A 09/13/2024 Paracentesis performed by Max Rico MD at [facility] PARACENTESIS N/A 09/20/2024 Paracentesis performed by Minda Gómez MD at [facility] PARACENTESIS N/A 09/27/2024 Paracentesis performed by Ginger Milton MD at [facility] PARACENTESIS N/A 10/03/2024 Paracentesis performed by Max Rico MD at [facility] PARACENTESIS N/A 10/18/2024 Paracentesis performed by Ginger Milton MD at [facility] PARACENTESIS N/A 11/28/2024 Paracentesis performed by Minda Gómez MD at [facility] PARACENTESIS N/A 12/06/2024 Paracentesis performed by Max Rico MD at [facility] PARACENTESIS N/A 12/10/2024 Paracentesis performed by Ginger Milton MD at [facility] ULTRASOUND GUIDANCE N/A 07/02/2024 Ultrasound Guidance performed by Max Rico MD at [facility] ULTRASOUND GUIDANCE N/A 07/09/2024 Ultrasound Guidance performed by Ginger Milton MD at [facility] ULTRASOUND GUIDANCE N/A 07/19/2024 Ultrasound Guidance performed by Minda Gómez MD at [facility] ULTRASOUND GUIDANCE N/A 07/26/2024 Ultrasound Guidance performed by Max Rico MD at [facility] ULTRASOUND GUIDANCE N/A 08/02/2024 Ultrasound Guidance performed by Ginger Milton MD at [facility] ULTRASOUND GUIDANCE N/A 08/09/2024 Ultrasound Guidance performed by Minda Gómez MD at [facility] ULTRASOUND GUIDANCE N/A 08/16/2024 Ultrasound Guidance performed by Ginger Milton MD at [facility] ULTRASOUND GUIDANCE N/A 08/22/2024 Ultrasound Guidance performed by Max Rico MD at [facility] ULTRASOUND GUIDANCE N/A 08/30/2024 Ultrasound Guidance performed by Minda Gómez MD at [facility] ULTRASOUND GUIDANCE N/A 09/04/2024 Ultrasound Guidance performed by Ginger Milton MD at [facility] ULTRASOUND GUIDANCE N/A 09/13/2024 Ultrasound Guidance performed by Max Rico MD at [facility] ULTRASOUND GUIDANCE N/A 09/20/2024 Ultrasound Guidance performed by Minda Gómez MD at [facility] ULTRASOUND GUIDANCE N/A 09/27/2024 Ultrasound Guidance performed by Ginger Milton MD at [facility] ULTRASOUND GUIDANCE N/A 10/03/2024 Ultrasound Guidance performed by Max Rico MD at [facility] ULTRASOUND GUIDANCE N/A 10/18/2024 Ultrasound Guidance performed by Ginger Milton MD at [facility] ULTRASOUND GUIDANCE N/A 10/30/2024 Ultrasound Guidance performed by Minda Gómez MD at [facility] ULTRASOUND GUIDANCE N/A 11/28/2024 Ultrasound Guidance performed by Minda Gómez MD at [facility] ULTRASOUND GUIDANCE N/A 12/06/2024 Ultrasound Guidance performed by Max Rico MD at [facility] ULTRASOUND GUIDANCE N/A 12/10/2024 Ultrasound Guidance performed by Ginger Milton MD at [facility] MEDICATIONS Medications Prior to [...] fluticasone propionate (FLONASE) 50 mcg/Actuation nasal spray [place] 50 mcg in each nostril Once Daily. One spray both nostrils daily ferrous sulfate 325 mg (65 mg iron) DR tablet Take 325 mg by mouth Once Daily. topiramate (TOPAMAX) 25 mg Take 25 mg by mouth Once Daily. naloxone (NARCAN) 4 mg/actuation nasal spray [place] 1 [place] in nose As directed for 1 dose. [...] soln 3 mL 3 mL Inhalation Q6H PRNGTommie sellers MD Lactobacillus rhamnosus GG (CULTURELLE) 15 [...] Resource Strain: Medium Risk (11/22/2023) Received from [facility], [facility] Overall Financial Resource Strain (CARDIA) Difficulty [...] Pulse: 75 [phone] 58 Resp: 15 09 12 18 Temp: 98.5 F (36.9 C) TempSrc: [...] and facilitate. -review of Care Everywhere indicates [facility] no longer covered by insurance -EGD [...] by: Miranda Marques APRN 12/10/2024 11:40 AM VIDEO GAME ANIMATOR NOTE Patient seen on : 12-10-2024 HPI: [...] fluticasone propionate (FLONASE) 50 mcg/Actuation nasal spray [place] 50 mcg in each nostril Once Daily. One spray both nostrils daily ferrous sulfate 325 mg (65 mg iron) DR tablet Take 325 mg by mouth Once Daily. topiramate (TOPAMAX) 25 mg Take 25 mg by mouth Once Daily. naloxone (NARCAN) 4 mg/actuation nasal spray [place] 1 [place] in nose As directed for 1 dose. [...] M.D. 12/10/2024 8:39 AM [facility]* Care Plan Note - Valentine Nieves [...] Adequate nutritional intake Description: Interventions: -Consult to motorcycle assembler -Intake and output measurement -Calorie count if [...] Education, tobacco use cessation methods Outcome: Ongoing [facility]03-19-2025 Note* End of Shift Note - Valentine [...] Totals Intake/Output 12/11/24 0700 - 12/12/24 0659 [phone] Total Intake P.O. 600 0 600 I.V. [...] Date Education Provided Other (Comment) Fall prevention [facility]03-18-2025 Note* Adv. Directive - Mary Haynes BSW - 12/11/2024 10:39 AM EDT Identified Next of Kin/Decision Maker: Vannesa Hightower (Daughter) [phone] (H) Comments: If there comes a time the patient is unable to make their own medical decisions, the above named is the closest living relative for decision making purposes. Mary NAM Social Work [facility]03-18-2025 Note* Care Plan Note - Mary Haynes BSW - 12/11/2024 10:38 AM EDT SW DISCHARGE/TREATMENT PLAN: 12/11/24 Pt to return to [facility] [phone] 1. Anticipate DC to home once medically stable. 2. Pt defers HH 3. SW to follow. Mary NAM Social Work [facility]03-18-2025 Consult note* Mary Haynes BSW - 12/11/2024 10:24 AM EDTAssociated Order(s): IP CONSULT TO SOCIAL WORK SOCIAL WORK ASSESSMENT DATE: 12/11/24 PATIENT NAME: Carolina Hightower MEDICAL UNIT: [id number] PURPOSE OF SOCIAL WORK INTERVENTION/REFERRAL: SW consulted for, "dcp" ASSESSMENT: Interview conducted with/Information obtained from: A review of the pt medical record, spoke with tx team, as well as discussion with patient at bedside. Identifying Information & Presenting Problem: Per H&P, "Patient is a 49 y.o. female with PMHx noted below, presenting via transfer from [facility] with c/o LLQ abdominal pain and lower back pain. She states the pain is "bubbling" and couldnot elaborate further, and it's been there for about a week, around the same time when she had her paracentesis on 12/06/24 at [facility]. Patient denies LANCE, fever, chill, nausea/vomiting, chest pain, shortness of breath, dizziness, palpitations, focal motor/sensory deficit, dysuria, or diarrhea. During [facility] w/u DIGITAL COMMENTATOR, the pt underwent a CT abd w/ contrast that showed cirrhosis, portal HTN, and moderate volume ascites. " Living Situation: Pt lives at the [facility]. Daily Functional Status DIGITAL COMMENTATOR: Patient is independent with ADL's. Support System: Family Medical Equipment: N/A Home Care Services (HH, Passport, Waiver, Private Caregivers, MOW etc) and Preferred Provider: Pt defers HH at this time. Community Services (mental health services, speciality clinics such as coumadin clinic, mental health services): [facility] IDENTIFIED SOCIAL DETERMINATES OF HEALTH (if yes [...] DIRECTIVES/NEXT OF KIN IDENTIFICATION: Vannesa Hightower (Daughter) [phone] (H) No AD on file in [facility]. DISCUSSION & INTERVENTION: Treatment Team/Social Work Assessment of Needs and Disposition: Discussed dcp and possible needs. Patient & Family Perspective of Needs and Disposition: SW spoke with patient at bedside. Pt plans to return to [facility] upon d/c. Pt defers HH at this time. No DME needed. Left voicemail with [facility] regarding transport. SW to follow. Discussion: SW educated patient on the role of the SW and that SW will continue to follow. SW informed patient that treatment options may vary based on the healthcare team recommendations and patient's progress.Patient voiced understanding. SW DISCHARGE/TREATMENT PLAN: 12/11/24 Pt to return to [facility] [phone] 1. Anticipate DC to home once medically stable. 2. Pt defers HH 3. SW to follow. Mary NAM Social Work [facility]03-18-2025 Note* Care Plan Note - Valentine Nieves [...] Adequate nutritional intake Description: Interventions: -Consult to motorcycle assembler -Intake and output measurement -Calorie count if [...] Education, tobacco use cessation methods Outcome: Ongoing [facility]03-18-2025 Note* End of Shift Note - Valentine [...] Totals Intake/Output 12/10/24 0700 - 12/11/24 0659 [phone] Total Intake P.O. 350 360 710 I.V. [...] Date Education Provided Other (Comment) Fall prevention [facility]03-17-2025 Note* Care Plan Note - Chilo Henry [...] Adequate nutritional intake Description: Interventions: -Consult to motorcycle assembler -Intake and output measurement -Calorie count if [...] Education, tobacco use cessation methods Outcome: Ongoing [facility]03-17-2025 Note* End of Shift Note - Chilo HenryGERTRUDE - 12/10/2024 6:42 PM EDT Nursing End [...] (Not Admitted) 12/10/24 0700 - 12/11/24 0659 [phone] Total 1803-9400 Total Intake P.O. -- -- -- 350 [...] Planning Home Expected Discharge Date Education Provided [facility]03-17-2025 Note* Care Plan Note - Gwyn Garsia [...] Adequate nutritional intake Description: Interventions: -Consult to motorcycle assembler -Intake and output measurement -Calorie count if [...] Education, tobacco use cessation methods Outcome: Ongoing [facility]03-17-2025 Consult note* Katharina Welsh MD - 12/10/2024 11:00 AM EDTAssociated Order(s): IP CONSULT TO GASTROENTEROLOGY GASTROENTEROLOGY CONSULT NOTE Miranda Marques 12/10/2024 Patient Name: Carolina Hightower : 1975 Medical Record: [id number] REQUESTING PHYSICIAN Isabella Ch MD PRIMARY CARE PHYSICIAN Ange Espinoza DO REASON FOR CONSULTATION Carolina Hightower is a 49 y.o. female who was referred for consultation for cirrhosis, abdominal pain. HPI: This is a 49 y.o. female with a history of Hepatitis C cirrhosis, bipolar disorder who presented tothe ED yesterday with complaint of back pain, [...] BIOPSY performed by Katharina Welsh MD at [facility] HX EGJ 09/07/2024 EGD /C BAND LIGATION VARICES performed by Katharina Welsh MD at [facility] HX LIVER BIOPSY HX POST STERILIZATION PARACENTESIS N/A 07/02/2024 Paracentesis performed by Max Rico MD at [facility] PARACENTESIS N/A 07/09/2024 Paracentesis performed by Ginger Milton MD at [facility] PARACENTESIS N/A 07/19/2024 Paracentesis performed by Minda Gómez MD at [facility] PARACENTESIS N/A 07/26/2024 Paracentesis performed by Max Rico MD at [facility] PARACENTESIS N/A 08/02/2024 Paracentesis performed by Ginger Milton MD at [facility] PARACENTESIS N/A 08/09/2024 Paracentesis performed by Minda Gómez MD at [facility] PARACENTESIS N/A 08/16/2024 Paracentesis performed by Ginger Milton MD at [facility] PARACENTESIS N/A 08/22/2024 Paracentesis performed by Max Rico MD at [facility] PARACENTESIS N/A 08/30/2024 Paracentesis performed by Minda Gómez MD at [facility] PARACENTESIS N/A 09/04/2024 Paracentesis performed by Ginger Milton MD at [facility] PARACENTESIS N/A 09/13/2024 Paracentesis performed by Max Rico MD at [facility] PARACENTESIS N/A 09/20/2024 Paracentesis performed by Minda Gómez MD at [facility] PARACENTESIS N/A 09/27/2024 Paracentesis performed by Ginger Milton MD at [facility] PARACENTESIS N/A 10/03/2024 Paracentesis performed by Max Rico MD at [facility] PARACENTESIS N/A 10/18/2024 Paracentesis performed by Ginger Milton MD at [facility] PARACENTESIS N/A 11/28/2024 Paracentesis performed by Minda Gómez MD at [facility] PARACENTESIS N/A 12/06/2024 Paracentesis performed by Max Rico MD at [facility] PARACENTESIS N/A 12/10/2024 Paracentesis performed by Ginger Milton MD at [facility] ULTRASOUND GUIDANCE N/A 07/02/2024 Ultrasound Guidance performed by Max Rico MD at [facility] ULTRASOUND GUIDANCE N/A 07/09/2024 Ultrasound Guidance performed by Ginger Milton MD at [facility] ULTRASOUND GUIDANCE N/A 07/19/2024 Ultrasound Guidance performed by Minda Gómez MD at [facility] ULTRASOUND GUIDANCE N/A 07/26/2024 Ultrasound Guidance performed by Max Rico MD at [facility] ULTRASOUND GUIDANCE N/A 08/02/2024 Ultrasound Guidance performed by Ginger Milton MD at [facility] ULTRASOUND GUIDANCE N/A 08/09/2024 Ultrasound Guidance performed by Minda Gómez MD at [facility] ULTRASOUND GUIDANCE N/A 08/16/2024 Ultrasound Guidance performed by Ginger Milton MD at [facility] ULTRASOUND GUIDANCE N/A 08/22/2024 Ultrasound Guidance performed by Max Rico MD at [facility] ULTRASOUND GUIDANCE N/A 08/30/2024 Ultrasound Guidance performed by Minda Gómez MD at [facility] ULTRASOUND GUIDANCE N/A 09/04/2024 Ultrasound Guidance performed by Ginger Milton MD at [facility] ULTRASOUND GUIDANCE N/A 09/13/2024 Ultrasound Guidance performed by Max Rico MD at [facility] ULTRASOUND GUIDANCE N/A 09/20/2024 Ultrasound Guidance performed by Minda Gómez MD at [facility] ULTRASOUND GUIDANCE N/A 09/27/2024 Ultrasound Guidance performed by Ginger Milton MD at [facility] ULTRASOUND GUIDANCE N/A 10/03/2024 Ultrasound Guidance performed by Max Rico MD at [facility] ULTRASOUND GUIDANCE N/A 10/18/2024 Ultrasound Guidance performed by Ginger Milton MD at [facility] ULTRASOUND GUIDANCE N/A 10/30/2024 Ultrasound Guidance performed by Minda Gómez MD at [facility] ULTRASOUND GUIDANCE N/A 11/28/2024 Ultrasound Guidance performed by Minda Gómez MD at [facility] ULTRASOUND GUIDANCE N/A 12/06/2024 Ultrasound Guidance performed by Max Rico MD at [facility] ULTRASOUND GUIDANCE N/A 12/10/2024 Ultrasound Guidance performed by Ginger Milton MD at [facility] MEDICATIONS Medications Prior to [...] fluticasone propionate (FLONASE) 50 mcg/Actuation nasal spray [place] 50 mcg in each nostril Once Daily. One spray both nostrils daily ferrous sulfate 325 mg (65 mg iron) DR tablet Take 325 mg by mouth Once Daily. topiramate (TOPAMAX) 25 mg Take 25 mg by mouth Once Daily. naloxone (NARCAN) 4 mg/actuation nasal spray [place] 1 [place] in nose As directed for 1 dose. [...] soln 3 mL 3 mL Inhalation Q6H Tommie Machado MD Lactobacillus rhamnosus GG (CULTURELLE) 15 billion [...] Resource Strain: Medium Risk (11/22/2023) Received from [facility], [facility] Overall Financial Resource Strain (CARDIA) Difficulty [...] and facilitate. -review of Care Everywhere indicates [facility] no longer covered by insurance -EGD [...] by: Miranda Marques APRN 12/10/2024 11:40 AM VIDEO GAME ANIMATOR NOTE Patient seen on : 12-10-2024 HPI: [...] Katharina Welsh M.D., MD 12/10/2024 5:02 PM [facility]03-17-2025 Consult note* Ginger Milton MD - 12/10/2024 8:39 AM EDTAssociated Order(s): IP CONSULT TO INTERVENTIONAL RADIOLOGY Images from the original note were not included. Interventional Radiology Consult Name: Carolina Katja : 1975 12/10/2024 HPI: Liver disease and [...] fluticasone propionate (FLONASE) 50 mcg/Actuation nasal spray [place] 50 mcg in each nostril Once Daily. One spray both nostrils daily ferrous sulfate 325 mg (65 mg iron) DR tablet Take 325 mg by mouth Once Daily. topiramate (TOPAMAX) 25 mg Take 25 mg by mouth Once Daily. naloxone (NARCAN) 4 mg/actuation nasal spray [place] 1 [place] in nose As directed for 1 dose. [...] Signed: Ginger Milton M.D. 12/10/2024 8:39 AM [facility] Work Phone: [phone]) 369-348203-17-2025 Emergency department Note* Radha Bauer RN - [...] patient demonstrated usage. Will continue to monitor [facility]03-17-2025 Emergency department Note* Radha Bauer RN - [...] Pt sent to ed by ems from [facility] abd pain and back pain for 3-4 days, had paracentesis her thurs. Pt had normal labs and ct abd with contrast all neg at [facility] , upon arriavl to ed , skin w/d pink a/ox4 no distress, asking for pain meds , pain is 8 per pt . documented in this [facility]03-17-2025 Emergency department Note* Radha Bauer RN - 12/10/2024 5:36 AM EDT Talked with dr rowan , no new orders received at this time [facility]03-17-2025 Emergency department Note* Radha Bauer RN - [...] dr rowan to ask about meds , [facility]03-17-2025 Emergency department Note* Radha Bauer RN - [...] light at bedside and patient demonstrated usage. [facility]03-17-2025 Emergency department Note* Radha Bauer RN - 12/10/2024 3:[address] rowan did not call back but has placed some orders at this time [facility]03-17-2025 History and physical note* Tommie New MD - 12/10/2024 3:44 AM EDT Images from the original note were not included. HISTORY AND PHYSICAL Service: Hospital Medicine Author: Tommie New Patient Name: Carolina Hightower GORGE:[id number] 1975 PMD: Ange Espinoza DO Admission date: 12/10/2024 1:01 AM History of Present Illness: Patient is a 49 y.o. female with PMHx noted below, presenting via transfer from [facility] with c/o LLQ abdominal pain and lower back pain. She states the pain is "bubbling" and could not elaboratefurther, and it's been there for about a week, around the same time when she had her paracentesis on 12/06/24 at [facility]. Patient denies LANCE, fever, chill, nausea/vomiting, chest pain, shortness of breath, dizziness, palpitations, focal motor/sensory deficit, dysuria, or diarrhea. During [facility] w/u DIGITAL COMMENTATOR, the pt underwent a CT abd w/ [...] edited the information contained in this note. [facility]03-17-2025 History and physical note* Tommie New MD - 12/10/2024 3:44 AM EDT Images from the original note were not included. HISTORY AND PHYSICAL Service: Hospital Medicine Author: Tommie New Patient Name: Carolina Hightower GORGE:[id number] 1975 PMD: Ange Espinoza DO Admission date: 12/10/2024 1:01 AM History of Present Illness: Patient is a 49 y.o. female with PMHx noted below, presenting via transfer from [facility] with c/o LLQ abdominal pain and lower back pain. She states the pain is "bubbling" and could not elaboratefurther, and it's been there for about a week, around the same time when she had her paracentesis on 12/06/24 at [facility]. Patient denies LANCE, fever, chill, nausea/vomiting, chest pain, shortness of breath, dizziness, palpitations, focal motor/sensory deficit, dysuria, or diarrhea. During [facility] w/u DIGITAL COMMENTATOR, the pt underwent a CT abd w/ [...] contained in this note. documented in this encounterSaint [facility] Emergency department Note* Radha Bauer RN - 12/10/2024 3:17 AM EDT Pt placed back on bp and sat monitors , pt wants pain meds , call into the provider at this time. Skin w/d pink a/ox4 no distress. [facility]03-17-2025 Emergency department Triage note* Radha Bauer RN - 12/10/2024 1:22 AM EDT Pt sent to ed by ems from [facility] for abd pain and back pain for 3-4 days, had paracentesis her thurs. Pt had normal labs and ct abd with contrast all neg at [facility] , upon arriavl to ed , skin w/d pink a/ox4 no distress, asking for pain meds , pain is 8 per pt . [facility]03-13-2025 NoteProcedure: Ultrasound-guided therapeutic paracentesis Indication: Alcoholic cirrhosis, [...] Using sonographic guidance aseptic trocar technique 6.5 [place] MERIT resolve drainage catheter was placed into the peritoneal cavity of the left lower quadrant followed by the removal of 500 mL yellow ascitic fluid. The catheter was removed, examined and found to be intact. No reported immediate complication or patient complaint. Impression: Technically successful ultrasound-guided paracentesis as above [facility]03-13-2025 Hospital Discharge instructions* Discharge Instructions* Kiersten Victoria [...] or rescheduled please call the nurse at [phone]. If you have any questions or concerns about your procedure please call: [phone] or [phone]. These instructions have been explained to me. I understand their content and have received a copy. Sign: Witness: Thank you for choosing [facility] Interventional Department documented in this encounterSaint [facility]03-[facility]-2025 History and physical note* Max Rico MD [...] Minda Gómez MD 10 mL at 11/28/24 0996 Current Outpatient Medications on File Prior to [...] fluticasone propionate (FLONASE) 50 mcg/Actuation nasal spray [place] 50 mcg in each nostril Once Daily. One spray both nostrils daily ferrous sulfate 325 mg (65 mg iron) DR tablet Take 325 mg by mouth Once Daily. topiramate (TOPAMAX) 25 mg Take 25 mg by mouth Once Daily. naloxone (NARCAN) 4 mg/actuation nasal spray [place] 1 [place] in nose As directed for 1 dose. [...] Signed: Max Rico MD 12/06/2024 9:40 AM [facility] Work Phone: [phone]) 119-377503-13-2025 History and physical note* Max Rico MD [...] Minda Gómez MD 10 mL at 11/28/24 0920 Current Outpatient Medications on File Prior to [...] fluticasone propionate (FLONASE) 50 mcg/Actuation nasal spray [place] 50 mcg in each nostril Once Daily. One spray both nostrils daily ferrous sulfate 325 mg (65 mg iron) DR tablet Take 325 mg by mouth Once Daily. topiramate (TOPAMAX) 25 mg Take 25 mg by mouth Once Daily. naloxone (NARCAN) 4 mg/actuation nasal spray [place] 1 [place] in nose As directed for 1 dose. [...] MD 12/06/2024 9:40 AM documented in this encounterSaint [facility]03-05-2025 History and physical note* Minda Gómez MD [...] fluticasone propionate (FLONASE) 50 mcg/Actuation nasal spray [place] 50 mcg in each nostril Once Daily. One spray both nostrils daily ferrous sulfate 325 mg (65 mg iron) DR tablet Take 325 mg by mouth Once Daily. topiramate (TOPAMAX) 25 mg Take 25 mg by mouth Once Daily. naloxone (NARCAN) 4 mg/actuation nasal spray [place] 1 [place] in nose As directed for 1 dose. [...] Minda Gómez M.D., MD 11/28/2024 10:01 AM [facility] Work Phone: [phone]) 591-502003-05-2025 History and physical note* Minda Gómez MD [...] fluticasone propionate (FLONASE) 50 mcg/Actuation nasal spray [place] 50 mcg in each nostril Once Daily. One spray both nostrils daily ferrous sulfate 325 mg (65 mg iron) DR tablet Take 325 mg by mouth Once Daily. topiramate (TOPAMAX) 25 mg Take 25 mg by mouth Once Daily. naloxone (NARCAN) 4 mg/actuation nasal spray [place] 1 [place] in nose As directed for 1 dose. [...] MD 11/28/2024 10:01 AM documented in this encounterSaint [facility]02-[facility]-2025 Emergency department Note* Tresa Breaux RN - 11/20/2024 2:05 AM EST Pt paged to triage 2 with no response. [facility]02-25-2025 Emergency department Note* Tresa Breaux RN - 11/20/2024 2:05 AM EST Pt paged to triage 2 with no response. * Tresa Breaux RN - 11/20/2024 1:30 AM EST Pt paged to triage 2 with no response. * Tiffany Sue RN - 11/19/2024 8:52 PM EST Pt paged to triage2 with no response * Lambert Veliz DO - 11/19/2024 2:42 PM EST Carolina Hightower [[id number]] (F) - 49 y.o. Note Creation:11/20/2024 Encounter [...] BIOPSY performed by Katharina Welsh MD at [facility] ENDO HX EGJ 09/07/2024 EGD /C BAND LIGATION VARICES performed by Katharina Welsh MD at [facility] ENDO HX LIVER BIOPSY HX POST STERILIZATION PARACENTESIS N/A 07/02/2024 Paracentesis performed by Max Rico MD at [facility] PARACENTESIS N/A 07/09/2024 Paracentesis performed by Ginger Milton MD at [facility] PARACENTESIS N/A 07/19/2024 Paracentesis performed by Minda Gómez MD at [facility] PARACENTESIS N/A 07/26/2024 Paracentesis performed by Max Rico MD at [facility] PARACENTESIS N/A 08/02/2024 Paracentesis performed by Ginger Milton MD at [facility] PARACENTESIS N/A 08/09/2024 Paracentesis performed by Minda Gómez MD at [facility] PARACENTESIS N/A 08/16/2024 Paracentesis performed by Ginger Milton MD at [facility] PARACENTESIS N/A 08/22/2024 Paracentesis performed by Max Rico MD at [facility] PARACENTESIS N/A 08/30/2024 Paracentesis performed by Minda Gómez MD at [facility] PARACENTESIS N/A 09/04/2024 Paracentesis performed by Ginger Milton MD at [facility] PARACENTESIS N/A 09/13/2024 Paracentesis performed by Max Rico MD at [facility] PARACENTESIS N/A 09/20/2024 Paracentesis performed by Minda Gómez MD at [facility] PARACENTESIS N/A 09/27/2024 Paracentesis performed by Ginger Milton MD at [facility] PARACENTESIS N/A 10/03/2024 Paracentesis performed by Max Rico MD at [facility] PARACENTESIS N/A 10/18/2024 Paracentesis performed by Ginger Milton MD at [facility] ULTRASOUND GUIDANCE N/A 07/02/2024 Ultrasound Guidance performed by Max Rico MD at [facility] ULTRASOUND GUIDANCE N/A 07/09/2024 Ultrasound Guidance performed by Ginger Milton MD at [facility] ULTRASOUND GUIDANCE N/A 07/19/2024 Ultrasound Guidance performed by Minda Gómez MD at [facility] ULTRASOUND GUIDANCE N/A 07/26/2024 Ultrasound Guidance performed by Max Rico MD at [facility] ULTRASOUND GUIDANCE N/A 08/02/2024 Ultrasound Guidance performed by Ginger Milton MD at [facility] ULTRASOUND GUIDANCE N/A 08/09/2024 Ultrasound Guidance performed by Minda Gómez MD at [facility] ULTRASOUND GUIDANCE N/A 08/16/2024 Ultrasound Guidance performed by Ginger Milton MD at [facility] ULTRASOUND GUIDANCE N/A 08/22/2024 Ultrasound Guidance performed by Max Rico MD at [facility] ULTRASOUND GUIDANCE N/A 08/30/2024 Ultrasound Guidance performed by Minda Gómez MD at [facility] ULTRASOUND GUIDANCE N/A 09/04/2024 Ultrasound Guidance performed by Ginger Milton MD at [facility] ULTRASOUND GUIDANCE N/A 09/13/2024 Ultrasound Guidance performed by Max Rico MD at [facility] ULTRASOUND GUIDANCE N/A 09/20/2024 Ultrasound Guidance performed by Minda Gómez MD at [facility] ULTRASOUND GUIDANCE N/A 09/27/2024 Ultrasound Guidance performed by Ginger Milton MD at [facility] ULTRASOUND GUIDANCE N/A 10/03/2024 Ultrasound Guidance performed by Max Rico MD at [facility] ULTRASOUND GUIDANCE N/A 10/18/2024 Ultrasound Guidance performed by Ginger Milton MD at [facility] ULTRASOUND GUIDANCE N/A 10/30/2024 Ultrasound Guidance performed by Minda Gómez MD at [facility] Family History Problem Relation [...] fluticasone propionate (FLONASE) 50 mcg/Actuation nasal spray [place] 50 mcg in each nostril Once Daily. One spray both nostrils daily ferrous sulfate 325 mg (65 mg iron) DR tablet Take 325 mg by mouth Once Daily. topiramate (TOPAMAX) 25 mg Take 25 mg by mouth Once Daily. naloxone (NARCAN) 4 mg/actuation nasal spray [place] 1 [place] in nose As directed for 1 dose. [...] Result time 11/19/24 15:13:19 Final result Narrative: [facility] [address] [place] [address] Radiology PATIENT NAME: Carolina Hightower MR#: [id number] PROCEDURE DATE: 11/19/2024 ROOM#: X ORDERING PHYS: Lambert Veliz PROCEDURE: XR CHEST [...] Greene MD gs TD: 11/19/2024 JOB #: [id number] Radiology Page 1 of 1 COPY Plan: [facility] ED RECHECK: Discharge: The pt is awake, [...] DO 11/20/2024 12:48 AM documented in this [facility]02-25-2025 Emergency department Note* LuTresa snow RN - 11/20/2024 1:30 AM EST Pt paged to triage 2 with no response. [facility]02-24-2025 Emergency department Note* Tiffany Sue RN - 11/19/2024 8:52 PM EST Pt paged to triage2 with no response [facility]02-24-2025 Hospital Discharge instructions* Discharge Instructions* Lambert Veliz DO - 11/19/2024 8:11 PM EST F/u w pcp Return for acute issues If worse symptoms then return for repeat exam documented in this encounterSaint [facility]02-24-2025 Note* Critical Test Results - Gricel Avila RN - 11/19/2024 4:04 PM EST Carolina Hightower Test Name: shamir Results: 44 11/19/2024 Time: 1604 Received from: [employer] by: nash valentine (Required: Attempt notification within 30 minutes or document reason for no notification) Physician: gracie 11/19/2024 Time: 1604 Notified: Yes - No orders received [facility]02-24-2025 Miscellaneous Notes* Critical Test Results - Gricel Avila RN - 11/19/2024 4:04 PM EST Carolina Hightower Test Name: shamir Results: 44 11/19/2024 Time: 1604 Received from: alessandro R/V by: nash valentine (Required: Attempt notification within 30 minutes or document reason for no notification) Physician: gracie 11/19/2024 Time: 1604 Notified: Yes - No orders received documented in this encounterSaint [facility]02-24-2025 Physician Emergency department Note* Lambert VelizDO - 11/19/2024 2:42 PM EST Carolina Hightower [[id number]] (F) - 49 y.o. Note Creation:11/20/2024 Encounter [...] BIOPSY performed by Katharina Welsh MD at [facility] HX EGJ 09/07/2024 EGD /C BAND LIGATION VARICES performed by Katharina Welsh MD at [facility] HX LIVER BIOPSY HX POST STERILIZATION PARACENTESIS N/A 07/02/2024 Paracentesis performed by Max Rico MD at [facility] PARACENTESIS N/A 07/09/2024 Paracentesis performed by Ginger Milton MD at [facility] PARACENTESIS N/A 07/19/2024 Paracentesis performed by Minda Gómez MD at [facility] PARACENTESIS N/A 07/26/2024 Paracentesis performed by Max Rico MD at [facility] PARACENTESIS N/A 08/02/2024 Paracentesis performed by Ginger Milton MD at [facility] PARACENTESIS N/A 08/09/2024 Paracentesis performed by Minda Gómez MD at [facility] PARACENTESIS N/A 08/16/2024 Paracentesis performed by Ginger Milton MD at [facility] PARACENTESIS N/A 08/22/2024 Paracentesis performed by Max Rico MD at [facility] PARACENTESIS N/A 08/30/2024 Paracentesis performed by Minda Gómez MD at [facility] PARACENTESIS N/A 09/04/2024 Paracentesis performed by Ginger Milton MD at [facility] PARACENTESIS N/A 09/13/2024 Paracentesis performed by Max Rico MD at [facility] PARACENTESIS N/A 09/20/2024 Paracentesis performed by Minda Gómez MD at [facility] PARACENTESIS N/A 09/27/2024 Paracentesis performed by Ginger Milton MD at [facility] PARACENTESIS N/A 10/03/2024 Paracentesis performed by Max Rico MD at [facility] PARACENTESIS N/A 10/18/2024 Paracentesis performed by Ginger Milton MD at [facility] ULTRASOUND GUIDANCE N/A 07/02/2024 Ultrasound Guidance performed by Max Rico MD at [facility] ULTRASOUND GUIDANCE N/A 07/09/2024 Ultrasound Guidance performed by Ginger Milton MD at [facility] ULTRASOUND GUIDANCE N/A 07/19/2024 Ultrasound Guidance performed by Minda Gómez MD at [facility] ULTRASOUND GUIDANCE N/A 07/26/2024 Ultrasound Guidance performed by Max Rico MD at [facility] ULTRASOUND GUIDANCE N/A 08/02/2024 Ultrasound Guidance performed by Ginger Milton MD at [facility] ULTRASOUND GUIDANCE N/A 08/09/2024 Ultrasound Guidance performed by Minda Gómez MD at [facility] ULTRASOUND GUIDANCE N/A 08/16/2024 Ultrasound Guidance performed by Ginger Milton MD at [facility] ULTRASOUND GUIDANCE N/A 08/22/2024 Ultrasound Guidance performed by Max Rico MD at [facility] ULTRASOUND GUIDANCE N/A 08/30/2024 Ultrasound Guidance performed by Minda Gómez MD at [facility] ULTRASOUND GUIDANCE N/A 09/04/2024 Ultrasound Guidance performed by Ginger Milton MD at [facility] ULTRASOUND GUIDANCE N/A 09/13/2024 Ultrasound Guidance performed by Max Rico MD at [facility] ULTRASOUND GUIDANCE N/A 09/20/2024 Ultrasound Guidance performed by Minda Gómez MD at [facility] ULTRASOUND GUIDANCE N/A 09/27/2024 Ultrasound Guidance performed by Ginger Milton MD at [facility] ULTRASOUND GUIDANCE N/A 10/03/2024 Ultrasound Guidance performed by Max Rico MD at [facility] ULTRASOUND GUIDANCE N/A 10/18/2024 Ultrasound Guidance performed by Ginger Milton MD at [facility] ULTRASOUND GUIDANCE N/A 10/30/2024 Ultrasound Guidance performed by Minda Gómez MD at [facility] Family History Problem Relation [...] fluticasone propionate (FLONASE) 50 mcg/Actuation nasal spray [place] 50 mcg in each nostril Once Daily. One spray both nostrils daily ferrous sulfate 325 mg (65 mg iron) DR tablet Take 325 mg by mouth Once Daily. topiramate (TOPAMAX) 25 mg Take 25 mg by mouth Once Daily. naloxone (NARCAN) 4 mg/actuation nasal spray [place] 1 [place] in nose As directed for 1 dose. [...] Result time 11/19/24 15:13:19 Final result Narrative: [place] [address] Radiology PATIENT NAME: Carolina Hightower MR#: [id number] PROCEDURE DATE: 11/19/2024 ROOM#: LTX ORDERING PHYS: [...] Greene MD gs TD: 11/19/2024 JOB #: [id number] Radiology Page 1 of 1 COPY Plan: [facility] ED RECHECK: Discharge: The pt is awake, [...] By Lambert Veliz DO 11/20/2024 12:48 AM [facility]02-04-2025 History and physical note* Minda Gómez MD [...] fluticasone propionate (FLONASE) 50 mcg/Actuation nasal spray [place] 50 mcg in each nostril Once Daily. One spray both nostrils daily ferrous sulfate 325 mg (65 mg iron) DR tablet Take 325 mg by mouth Once Daily. topiramate (TOPAMAX) 25 mg Take 25 mg by mouth Once Daily. naloxone (NARCAN) 4 mg/actuation nasal spray [place] 1 [place] in nose As directed for 1 dose. [...] Minda Gómez M.D., MD 10/30/2024 7:48 AM [facility] Work Phone: 1(150) 543-728602-04-2025 History and physical note* Minda Gómez MD [...] fluticasone propionate (FLONASE) 50 mcg/Actuation nasal spray [place] 50 mcg in each nostril Once Daily. One spray both nostrils daily ferrous sulfate 325 mg (65 mg iron) DR tablet Take 325 mg by mouth Once Daily. topiramate (TOPAMAX) 25 mg Take 25 mg by mouth Once Daily. naloxone (NARCAN) 4 mg/actuation nasal spray [place] 1 [place] in nose As directed for 1 dose. [...] MD 10/30/2024 7:48 AM documented in this [facility]01-23-2025 Hospital Discharge instructions* Discharge Instructions* Tiffany Lovett [...] purposes. The above information is an educational adviser only. It is not intended as medical advice for individual conditions or treatments. Talk to your doctor, nurse or pharmacist before following any medical regimen to see if it is safe and effective for you. documented in this encounterSaint [facility]01-[facility]25 Telephone encounter Note* Telephone Encounter - Kaylin Rhodes - 10/15/2024 3:49 PM EST LM we need to cancel her 10/24 appt due to her insurance being OON and they denied her coming here. [facility]01-20-2025 Miscellaneous Notes* Telephone Encounter - Kaylin Rhodes - 10/15/2024 3:49 PM EST LM we need to cancel her 10/24 appt due to her insurance being OON and they denied her coming here. [facility] encounter Note * Telephone Encounter - Kaylin Rhodes - 10/10/2024 11:31 AM EST Called pt to notify her we received a denial from [facility] regarding her visit here on 10/24, so we need to cancel appnash, NOE to call me back [facility]01-15-2025 Miscellaneous Notes* Telephone Encounter - Kaylin Rhodes - 10/10/2024 11:31 AM EST Called pt to notify her we received a denial from [facility] regarding her visit here on 10/24, so we need to cancel appt, LM to call me back [facility] Discharge instructions* Discharge Instructions* Pete Ponce MD - 10/04/2024 11:02 AM EST Follow up with your doctor next week for a re exam and future paracentesis with interventional radiology as needed for an out patient paracentesis. * Attachments The following attachments cannot be sent through Care Everywhere. * Cirrhosis of the Liver (AfterCare(R) Instructions(ER/ED)) (Samoan) documented in this encounterSaint [facility]01-09-2025 Note* Critical Test Results - Jacky Fernandez RN - 10/04/2024 8:36 AM EST Carolina Hightower Test Name: PLATELETS Results: 43 10/04/2024 Time: 836 Received from: [facility]ESS[facility] R/V by: JACKY (Required: Attempt notification within 30 minutes or document reason for no notification) Physician: DEZ 10/04/2024 Time: 836 Notified: Yes - No orders received [facility]01-09-2025 Miscellaneous Notes* Critical Test Results - Jacky Fernandez RN - 10/04/2024 8:36 AM EST Carolina Hightower Test Name: PLATELETS Results: 43 10/04/2024 Time: 836 Received from: [facility]ESSI R/V by: JACKY (Required: Attempt notification within 30 minutes or document reason for no notification) Physician: DEZ 10/04/2024 Time: 836 Notified: Yes - No orders received documented in this encounterSaint Joseph East01-09-2025 Emergency department Note* Hi Lara RN - 10/04/2024 8:17 AM EST Patient arrives to ed with complaint of abd pain. Patient states generalized abd pain. States hx ofliver disease. States she is rehab. Denies no other complaints. Patient is oneill x3, resp e/u, skin pwd. Nsoad. [facility]01-09-2025 Emergency department Note* Hi Lara RN - 10/04/2024 8:17 AM EST Patient arrives to ed with complaint of abd pain. Patient states generalized abd pain. States hx ofliver disease. States she is rehab. Denies no other complaints. Patient is oneill x3, resp e/u, skin pwd. Nsoad. documented in this encounterSaint [facility]01-08-2025 Note Procedure: Ultrasound guided therapeutic paracentesis Indication: [...] sonographic guidance using aseptic technique a 6.5 [place] merit resolve drainage catheter was placed into [...] Technically successful ultrasound-guided therapeutic paracentesis as above. [facility]01-08-2025 Hospital Discharge instructions* Discharge Instructions* Luci Victoria [...] or rescheduled please call the nurse at [phone]. If you have any questions or concerns about your procedure please call: [phone] or [phone]. These instructions have been explained to me. I understand their content and have received a copy. Sign: Witness: Thank you for choosing [facility] V[facility] Interventional Department documented [facility] History and physical note* Max Rico MD [...] fluticasone propionate (FLONASE) 50 mcg/Actuation nasal spray [place] 50 mcg in each nostril Once Daily. One spray both nostrils daily ferrous sulfate 325 mg (65 mg iron) DR tablet Take 325 mg by mouth Once Daily. topiramate (TOPAMAX) 25 mg Take 25 mg by mouth Once Daily. naloxone (NARCAN) 4 mg/actuation nasal spray [place] 1 [place] in nose As directed for 1 dose. [...] Signed: Max Rico MD 10/03/2024 9:21 AM [facility] Work Phone: [phone] 354-855701-08-2025 History and physical note* Max Rico MD [...] fluticasone propionate (FLONASE) 50 mcg/Actuation nasal spray [place] 50 mcg in each nostril Once Daily. One spray both nostrils daily ferrous sulfate 325 mg (65 mg iron) DR tablet Take 325 mg by mouth Once Daily. topiramate (TOPAMAX) 25 mg Take 25 mg by mouth Once Daily. naloxone (NARCAN) 4 mg/actuation nasal spray [place] 1 [place] in nose As directed for 1 dose. [...] MD 10/03/2024 9:21 AM documented in this [facility]01-03-2025 Emergency department Note* Carolina Tolentino RN - 09/28/2024 1:39 PM EST Patient to ed for cc of "feeling tired". Patient caox3, skin pwd, respirations even and unlabored. Dc instructions reviewed with patient. Verbalize understanding. Patient to ed lobby no acute distress noted [facility] Emergency department Note* Carolina Tolentino RN - 09/28/2024 1:39 PM EST Patient to ed for cc of "feeling tired". Patient caox3, skin pwd, respirations even and unlabored. Dc instructions reviewed with patient. Verbalize understanding. Patient to ed lobby no acute distress noted * Pete Ponce MD - 09/28/2024 12:31 PM EST Carolina Hightower [[id number]] (F) - 48 y.o. Note Creation:09/28/2024 Encounter Date:09/28/2024 History Chief Complaint Patient presents with General Illness Carolina Hightower is a 48 year old female with hx of Hep C Cirrhosis who presents to the ED from [facility] for evaluation of fatigue and generalized [...] N/A 09/07/2024 EGD /C BIOPSY performed by Blaise, Katharina Alexander MD at [facility] HX EGJ 09/07/2024 EGD /C BAND LIGATION VARICES performed by Katharina Welsh MD at [facility] HX LIVER BIOPSY HX POST STERILIZATION PARACENTESIS N/A 07/02/2024 Paracentesis performed by Max Rico MD at [facility] PARACENTESIS N/A 07/09/2024 Paracentesis performed by Ginger Milton MD at [facility] PARACENTESIS N/A 07/19/2024 Paracentesis performed by Minda Gómez MD at [facility] PARACENTESIS N/A 07/26/2024 Paracentesis performed by Max Rico MD at [facility] PARACENTESIS N/A 08/02/2024 Paracentesis performed by Ginger Milton MD at [facility] PARACENTESIS N/A 08/09/2024 Paracentesis performed by Minda Gómez MD at [facility] PARACENTESIS N/A 08/16/2024 Paracentesis performed by Ginger Milton MD at [facility] PARACENTESIS N/A 08/22/2024 Paracentesis performed by Max Rico MD at [facility] PARACENTESIS N/A 08/30/2024 Paracentesis performed by Minda Gómez MD at [facility] PARACENTESIS N/A 09/04/2024 Paracentesis performed by Ginger Milton MD at [facility] PARACENTESIS N/A 09/13/2024 Paracentesis performed by Max Rico MD at [facility] PARACENTESIS N/A 09/20/2024 Paracentesis performed by Minda Gómez MD at [facility] PARACENTESIS N/A 09/27/2024 Paracentesis performed by Ginger Milton MD at [facility] ULTRASOUND GUIDANCE N/A 07/02/2024 Ultrasound Guidance performed by Max Rico MD at [facility] ULTRASOUND GUIDANCE N/A 07/09/2024 Ultrasound Guidance performed by Ginger Milton MD at [facility] ULTRASOUND GUIDANCE N/A 07/19/2024 Ultrasound Guidance performed by Minda Gómez MD at [facility] ULTRASOUND GUIDANCE N/A 07/26/2024 Ultrasound Guidance performed by Max Rico MD at [facility] ULTRASOUND GUIDANCE N/A 08/02/2024 Ultrasound Guidance performed by Ginger Milton MD at [facility] ULTRASOUND GUIDANCE N/A 08/09/2024 Ultrasound Guidance performed by Minda Gómez MD at [facility] ULTRASOUND GUIDANCE N/A 08/16/2024 Ultrasound Guidance performed by Ginger Milton MD at [facility] ULTRASOUND GUIDANCE N/A 08/22/2024 Ultrasound Guidance performed by Max Rico MD at [facility] ULTRASOUND GUIDANCE N/A 08/30/2024 Ultrasound Guidance performed by Minda Gómez MD at [facility] ULTRASOUND GUIDANCE N/A 09/04/2024 Ultrasound Guidance performed by Ginger Milton MD at [facility] ULTRASOUND GUIDANCE N/A 09/13/2024 Ultrasound Guidance performed by Max Rico MD at [facility] ULTRASOUND GUIDANCE N/A 09/20/2024 Ultrasound Guidance performed by Minda Gómez MD at [facility] ULTRASOUND GUIDANCE N/A 09/27/2024 Ultrasound Guidance performed by Ginger Milton MD at [facility] Family History Problem Relation [...] fluticasone propionate (FLONASE) 50 mcg/Actuation nasal spray [place] 50 mcg in each nostril Once Daily. One spray both nostrils daily ferrous sulfate 325 mg (65 mg iron) DR tablet Take 325 mg by mouth Once Daily. topiramate (TOPAMAX) 25 mg Take 25 mg by mouth Once Daily. naloxone (NARCAN) 4 mg/actuation nasal spray [place] 1 [place] in nose As directed for 1 dose. [...] Result time 09/28/24 11:20:12 Final result Narrative: [facility] ED Test Date: 2024-09-28 Pat Name: CAROLINA HIGHTOWER Department: EMERGENCY DEPARTMENT Room: Gender: Female Medical Practice Manager: Ambreen powell : 1975 Requested By: PETE PONCE Order Number: [id number] Reading MD: Anjelica Bonilla MD Measurements Intervals [place] Rate: 61 P: 59 FL: 182 QRS: 24 QRSD: 90 T: 38 QT: 442 QTc: 447 Interpretive Statements SINUS RHYTHM No previous ECG available for comparison Electronically Signed On 09-28-2024 11:20:04 EST by Anjelica Bonilla MD Preliminary result Narrative: [facility] ED Test Date: 2024-09-28 Pat Name: CAROLINA HIGHTOWER Department: EMERGENCY DEPARTMENT Room: Gender: Female Medical Practice Manager: Ambreen powell : 1975 Requested By: PETE PONCE Order Number: [id number] Reading MD: Measurements Intervals [place] Rate: 61 P: 59 FL: 182 QRS: 24 QRSD: 90 T: 38 QT: 442 QTc: 447 Interpretive Statements SINUS RHYTHM Consult: Plan: [facility] ED RECHECK: Discharge: The pt is awake, alert and stable appearing at time of reevaluation resting comfortably. I spoke with the patient about her ED work up, diagnosis and any further treatmentand to use lactulose 45 ml tid. I discussed the importance of following up with her SENIOR PROFESSIONAL SERVICES CONSULTANT and GI. I instructed her to [...] -- Discharge Instructions Follow up with your SENIOR PROFESSIONAL SERVICES CONSULTANT Judie Gill as scheduled on 11/08 [...] Finger stick gluc 137. documented in this encounter[facility] Physician Emergency department Note* Pete Ponce MD - 09/28/2024 12:31 PM EST Carolina Hightower [[id number]] (F) - 48 y.o. Note Creation:09/28/2024 Encounter Date:09/28/2024 History Chief Complaint Patient presents with General Illness Carolina Hightower is a 48 year old female with hx of Hep C Cirrhosis who presents to the ED from [facility] for evaluation of fatigue and generalized [...] BIOPSY performed by Katharina Welsh MD at [facility] HX EGJ 09/07/2024 EGD /C BAND LIGATION VARICES performed by Katharina Welsh MD at [facility] HX LIVER BIOPSY HX POST STERILIZATION PARACENTESIS N/A 07/02/2024 Paracentesis performed by Max Rico MD at [facility] PARACENTESIS N/A 07/09/2024 Paracentesis performed by Ginger Milton MD at [facility] PARACENTESIS N/A 07/19/2024 Paracentesis performed by Minda Gómez MD at [facility] PARACENTESIS N/A 07/26/2024 Paracentesis performed by Max Rico MD at [facility] PARACENTESIS N/A 08/02/2024 Paracentesis performed by Ginger Milton MD at [facility] PARACENTESIS N/A 08/09/2024 Paracentesis performed by Minda Gómez MD at [facility] PARACENTESIS N/A 08/16/2024 Paracentesis performed by Ginger iMlton MD at [facility] PARACENTESIS N/A 08/22/2024 Paracentesis performed by Max Rico MD at [facility] PARACENTESIS N/A 08/30/2024 Paracentesis performed by Minda Gómez MD at [facility] PARACENTESIS N/A 09/04/2024 Paracentesis performed by Ginger Milton MD at [facility] PARACENTESIS N/A 09/13/2024 Paracentesis performed by Max Rico MD at [facility] PARACENTESIS N/A 09/20/2024 Paracentesis performed by Minda Gómez MD at [facility] PARACENTESIS N/A 09/27/2024 Paracentesis performed by Ginger Milton MD at [facility] ULTRASOUND GUIDANCE N/A 07/02/2024 Ultrasound Guidance performed by Max Rico MD at [facility] ULTRASOUND GUIDANCE N/A 07/09/2024 Ultrasound Guidance performed by Ginger Milton MD at [facility] ULTRASOUND GUIDANCE N/A 07/19/2024 Ultrasound Guidance performed by Minda Gómez MD at [facility] ULTRASOUND GUIDANCE N/A 07/26/2024 Ultrasound Guidance performed by Max Rico MD at [facility] ULTRASOUND GUIDANCE N/A 08/02/2024 Ultrasound Guidance performed by Ginger Milton MD at [facility] ULTRASOUND GUIDANCE N/A 08/09/2024 Ultrasound Guidance performed by Minda Gómez MD at [facility] ULTRASOUND GUIDANCE N/A 08/16/2024 Ultrasound Guidance performed by Ginger Milton MD at [facility] ULTRASOUND GUIDANCE N/A 08/22/2024 Ultrasound Guidance performed by Max Rico MD at [facility] ULTRASOUND GUIDANCE N/A 08/30/2024 Ultrasound Guidance performed by Minda Gómez MD at [facility] ULTRASOUND GUIDANCE N/A 09/04/2024 Ultrasound Guidance performed by Ginger Milton MD at [facility] ULTRASOUND GUIDANCE N/A 09/13/2024 Ultrasound Guidance performed by Max Rico MD at [facility] ULTRASOUND GUIDANCE N/A 09/20/2024 Ultrasound Guidance performed by Minda Gómez MD at [facility] ULTRASOUND GUIDANCE N/A 09/27/2024 Ultrasound Guidance performed by Ginger Milton MD at [facility] Family History Problem Relation [...] fluticasone propionate (FLONASE) 50 mcg/Actuation nasal spray [place] 50 mcg in each nostril Once Daily. One spray both nostrils daily ferrous sulfate 325 mg (65 mg iron) DR tablet Take 325 mg by mouth Once Daily. topiramate (TOPAMAX) 25 mg Take 25 mg by mouth Once Daily. naloxone (NARCAN) 4 mg/actuation nasal spray [place] 1 [place] in nose As directed for 1 dose. [...] Result time 09/28/24 11:20:12 Final result Narrative: [facility] ED Test Date: 2024-09-28 Pat Name: CAROLINA HIGHTOWER Department: EMERGENCY DEPARTMENT Room: Gender: Female Medical Practice Manager: Ambreen powell : 1975 Requested By: PETE PONCE Order Number: [id number] Reading MD: Anjelica Bonilla MD Measurements Intervals [place] Rate: 61 P: 59 FL: 182 QRS: 24 QRSD: 90 T: 38 QT: 442 QTc: 447 Interpretive Statements SINUS RHYTHM No previous ECG available for comparison Electronically Signed On 09-28-2024 11:20:04 EST by Anjelica Bonilla MD Preliminary result Narrative: [facility] ED Test Date: 2024-09-28 Pat Name: CAROLINA HIGHTOWER Department: EMERGENCY DEPARTMENT Room: Gender: Female Medical Practice Manager: Ambreen powell : 1975 Requested By: PETE PONCE Order Number: [id number] Yoana MD: Measurements Intervals [place] Rate: 61 P: 59 FL: 182 QRS: 24 QRSD: 90 T: 38 QT: 442 QTc: 447 Interpretive Statements SINUS RHYTHM Consult: Plan: [facility] ED RECHECK: Discharge: The pt is awake, alert and stable appearing at time of reevaluation resting comfortably. I spoke with the patient about her ED work up, diagnosis and any further treatmentand to use lactulose 45 ml tid. I discussed the importance of following up with her SENIOR PROFESSIONAL SERVICES CONSULTANT and GI. I instructed her to [...] -- Discharge Instructions Follow up with your SENIOR PROFESSIONAL SERVICES CONSULTANT Judie Gill as scheduled on 11/08 [...] and completely records my words and actions. [facility]-03-2025 Hospital Discharge instructions* Discharge Instructions* Pete Ponce MD - 09/28/2024 12:13 PM EST Follow up with your SENIOR PROFESSIONAL SERVICES CONSULTANT Judie Gill as scheduled on 11/08 at 1140 am and follow up with Ange Espinoza. Take the lactulose 45 ml 3x a day and do not miss any doses. documented in this encounterSaint [facility]01-03-[facility]25 Note* Critical Test Results - Jakob Babcock RN - 09/28/2024 11:50 AM EST Carolina Hightower Test Name: plt 42 Results: 09/28/2024 Time: 1148 Received from: lab R/V by: eddie (Required: Attempt notification within 30 minutes or document reason for no notification) Physician: PK 09/28/2024 Time: 1148 Notified: Yes - No orders received [facility]01-03-2025 Miscellaneous Notes* Critical Test Results - Jakob Babcock RN - 09/28/2024 11:50 AM EST Carolina Hightower Test Name: plt 42 Results: 09/28/2024 Time: 1148 Received from: lab R/V by: eddie (Required: Attempt notification within 30 minutes or document reason for no notification) Physician: PK 09/28/2024 Time: 1148 Notified: Yes - No orders received documented in this encounterSaint [facility] Emergency department Note* Mike Powell CMT - 09/28/2024 10:56 AM EST Finger stick gluc 137. [facility]01-02-2025 History and physical note* Ginger Milton MD [...] fluticasone propionate (FLONASE) 50 mcg/Actuation nasal spray [place] 50 mcg in each nostril Once Daily. One spray both nostrils daily ferrous sulfate 325 mg (65 mg iron) DR tablet Take 325 mg by mouth Once Daily. topiramate (TOPAMAX) 25 mg Take 25 mg by mouth Once Daily. naloxone (NARCAN) 4 mg/actuation nasal spray [place] 1 [place] in nose As directed for 1 dose. [...] Signed: Ginger Milton M.D. 09/27/2024 10:04 AM [facility] Work Phone: 1(397) 937-285501-02-2025 History and physical note* Ginger Milton MD [...] fluticasone propionate (FLONASE) 50 mcg/Actuation nasal spray [place] 50 mcg in each nostril Once Daily. One spray both nostrils daily ferrous sulfate 325 mg (65 mg iron) DR tablet Take 325 mg by mouth Once Daily. topiramate (TOPAMAX) 25 mg Take 25 mg by mouth Once Daily. naloxone (NARCAN) 4 mg/actuation nasal spray [place] 1 [place] in nose As directed for 1 dose. [...] M.D. 09/27/2024 10:04 AM documented in this encounterSaint [facility]12-26-2024 History and physical note* Minda Gómez MD [...] 2 g 2 g Intravenous ONE TIME Mapnreet Mills MD 25 mL/hr at 09/03/24 0405 [...] fluticasone propionate (FLONASE) 50 mcg/Actuation nasal spray [place] 50 mcg in each nostril Once Daily. One spray both nostrils daily ferrous sulfate 325 mg (65 mg iron) DR tablet Take 325 mg by mouth Once Daily. topiramate (TOPAMAX) 25 mg Take 25 mg by mouth Once Daily. naloxone (NARCAN) 4 mg/actuation nasal spray [place] 1 [place] in nose As directed for 1 dose. [...] Minda Gómez M.D., MD 09/20/2024 10:10 AM [facility] Work Phone: 1(120) 997-417812-26-2024 History and physical note* Minda Gómez MD [...] fluticasone propionate (FLONASE) 50 mcg/Actuation nasal spray [place] 50 mcg in each nostril Once Daily. One spray both nostrils daily ferrous sulfate 325 mg (65 mg iron) DR tablet Take 325 mg by mouth Once Daily. topiramate (TOPAMAX) 25 mg Take 25 mg by mouth Once Daily. naloxone (NARCAN) 4 mg/actuation nasal spray [place] 1 [place] in nose As directed for 1 dose. [...] MD 09/20/2024 10:10 AM documented in this [facility]12-26-2024 Hospital Discharge instructions* Discharge Instructions* Karen Stanton [...] or rescheduled please call the nurse at [phone]. If you have any questions or concerns about your procedure please call: [phone] or [phone]. These instructions have been explained to me. I understand their content and have received a copy. Sign: Witness: [facility] Vascular [facility] Interventional Department documented in this encounterSaint [facility]12-19-[facility] Note Procedure: Ultrasound guided therapeutic paracentesis Indication: [...] sonographic guidance using aseptic technique a 6.5 [place] merit resolve drainage catheter was placed into [...] Technically successful ultrasound-guided therapeutic paracentesis as above. [facility]12-19-2024 History and physical note* Max Rico MD [...] fluticasone propionate (FLONASE) 50 mcg/Actuation nasal spray [place] 50 mcg in each nostril Once Daily. One spray both nostrils daily ferrous sulfate 325 mg (65 mg iron) DR tablet Take 325 mg by mouth Once Daily. topiramate (TOPAMAX) 25 mg Take 25 mg by mouth Once Daily. naloxone (NARCAN) 4 mg/actuation nasal spray [place] 1 [place] in nose As directed for 1 dose. [...] Signed: Max Rico MD 09/13/2024 2:31 PM [facility] Work Phone: [phone]) 799-580612-19-2024 History and physical note* Max Rico MD [...] fluticasone propionate (FLONASE) 50 mcg/Actuation nasal spray [place] 50 mcg in each nostril Once Daily. One spray both nostrils daily ferrous sulfate 325 mg (65 mg iron) DR tablet Take 325 mg by mouth Once Daily. topiramate (TOPAMAX) 25 mg Take 25 mg by mouth Once Daily. naloxone (NARCAN) 4 mg/actuation nasal spray [place] 1 [place] in nose As directed for 1 dose. [...] MD 09/13/2024 2:31 PM documented in this encounterSaint [facility]12-[facility] Hospital Discharge instructions* Discharge Instructions* Tiffany Lovett RN - 09/13/2024 1:42 PM EST Discharge Instructions You have had a vascular and/or interventional procedure performed at [facility]. Your procedure was a/an Paracentesis. This procedure [...] Patient received verbal instructions of procedure. {yes no:[id number]} Notes: Instructions have been explained to me. I understand their content and a copy has been given to me. Patient and/or Responsible democrat Relationship Tiffany Lovett RN 41:42 PM Nurse/Technologist Date/Time documented in this [facility]12-05-2024 History and physical note* Minda Gómez - [...] fluticasone propionate (FLONASE) 50 mcg/Actuation nasal spray [place] 50 mcg in each nostril Once Daily. One spray both nostrils daily ferrous sulfate 325 mg (65 mg iron) DR tablet Take 325 mg by mouth Once Daily. Spironolacton-Hydrochlorothiaz 50-50 mg Tab Take 50 mg by mouth Twice a day. topiramate (TOPAMAX) 25 mg Take 25 mg by mouth Once Daily. naloxone (NARCAN) 4 mg/actuation nasal spray [place] 1 [place] in nose As directed for 1 dose. [...] Minda Gómez M.D., MD 08/30/2024 1:30 PM [facility]12-05-2024 History and physical note* Minda Gómez - [...] fluticasone propionate (FLONASE) 50 mcg/Actuation nasal spray [place] 50 mcg in each nostril Once Daily. One spray both nostrils daily ferrous sulfate 325 mg (65 mg iron) DR tablet Take 325 mg by mouth Once Daily. Spironolacton-Hydrochlorothiaz 50-50 mg Tab Take 50 mg by mouth Twice a day. topiramate (TOPAMAX) 25 mg Take 25 mg by mouth Once Daily. naloxone (NARCAN) 4 mg/actuation nasal spray [place] 1 [place] in nose As directed for 1 dose. [...] MD 08/30/2024 1:30 PM documented in this [facility]12-05-2024 Hospital Discharge instructions* Discharge Instructions* Diya Ontiveros RN - 08/30/2024 1:18 PM EST Discharge Instructions You have had a vascular and/or interventional procedure performed at [facility]. Your procedure was a/an paracentesis. This procedure [...] may call the radiologist (X-Ray Physician) at [phone]. Transportation home: Travel time should be less than 1 hour to a medical facility, in case a delayed complication shouldoccur. Patient teaching: Patient received a procedure educational sheet. yes Patient received verbal instructions of procedure. yes Notes: Instructions have been explained to me. I understand their content and a copy has been given to me. Patient and/or Responsible democrat Relationship Diya Ontiveros RN :18 PM Nurse/Technologist Date/Time * Attachments The following attachments cannot be sent through Care Everywhere. * Ascites (Discharge Care) (Samoan) * Paracentesis (Discharge Care) (Samoan) documented in this encounterSaint [facility]11-27-[facility]24 Note Procedure: Ultrasound guided therapeutic paracentesis Indication: [...] sonographic guidance using aseptic technique a 6.5 [place] merit resolve drainage catheter was placed into [...] Technically successful ultrasound-guided therapeutic paracentesis as above. [facility]11-27-2024 History and physical note* Max Rico MD [...] mg/mL (2 %) injection ONE TIME PRN Jacky, Max, MD 10 mL at 07/26/24 1625 [COMPLETED] [...] fluticasone propionate (FLONASE) 50 mcg/Actuation nasal spray [place] 50 mcg in each nostril Once Daily. One spray both nostrils daily ferrous sulfate 325 mg (65 mg iron) DR tablet Take 325 mg by mouth Once Daily. Spironolacton-Hydrochlorothiaz 50-50 mg Tab Take 50 mg by mouth Twice a day. topiramate (TOPAMAX) 25 mg Take 25 mg by mouth Once Daily. naloxone (NARCAN) 4 mg/actuation nasal spray [place] 1 [place] in nose As directed for 1 dose. [...] Signed: Max Rico MD 08/22/2024 12:46 PM [facility] Work Phone: 1(986) 431-525611-27-2024 History and physical note* Max Rico MD [...] fluticasone propionate (FLONASE) 50 mcg/Actuation nasal spray [place] 50 mcg in each nostril Once Daily. One spray both nostrils daily ferrous sulfate 325 mg (65 mg iron) DR tablet Take 325 mg by mouth Once Daily. Spironolacton-Hydrochlorothiaz 50-50 mg Tab Take 50 mg by mouth Twice a day. topiramate (TOPAMAX) 25 mg Take 25 mg by mouth Once Daily. naloxone (NARCAN) 4 mg/actuation nasal spray [place] 1 [place] in nose As directed for 1 dose. [...] MD 08/22/2024 12:46 PM documented in this [facility]11-27-2024 Hospital Discharge instructions* Discharge Instructions* Mike Horner [...] or rescheduled please call the nurse at [phone]. If you have any questions or concerns about your procedure please call: [phone] or [phone]. These instructions have been explained to me. I understand their content and have received a copy. Sign: Witness: Thank you for choosing [facility] V[facility] Interventional Department documented in this encounterSaint [facility] East11-21-[facility]24 History and physical note* Ginger Milton MD [...] % vial ONE TIME PRMax Mcclendon MD 12.5 g at 07/26/24 1637 [COMPLETED] albumin human 25 % vial ONE TIME PRN Max Rico MD 12.5 g at 07/26/24 1647 [COMPLETED] lidocaine (preservative free) 20 mg/mL (2 %) injection ONE TIME PRN Minda Gómez MD 10 mL at 07/19/24 1616 [COMPLETED] albumin human 25 % vial ONE TIME Minda Davila MD 12.5 g at 07/19/24 1704 [COMPLETED] [...] fluticasone propionate (FLONASE) 50 mcg/Actuation nasal spray [place] 50 mcg in each nostril Once Daily. One spray both nostrils daily ferrous sulfate 325 mg (65 mg iron) DR tablet Take 325 mg by mouth Once Daily. Spironolacton-Hydrochlorothiaz 50-50 mg Tab Take 50 mg by mouth Twice a day. topiramate (TOPAMAX) 25 mg Take 25 mg by mouth Once Daily. naloxone (NARCAN) 4 mg/actuation nasal spray [place] 1 [place] in nose As directed for 1 dose. [...] Signed: Ginger Milton M.D. 08/16/2024 1:20 PM [facility] Work Phone: 1(517) 825-791911-21-2024 History and physical note* Ginger Milton MD [...] human 25 % vial ONE TIME PRN Mxa Rico MD 12.5 g at 07/26/24 1647 [...] fluticasone propionate (FLONASE) 50 mcg/Actuation nasal spray [place] 50 mcg in each nostril Once Daily. One spray both nostrils daily ferrous sulfate 325 mg (65 mg iron) DR tablet Take 325 mg by mouth Once Daily. Spironolacton-Hydrochlorothiaz 50-50 mg Tab Take 50 mg by mouth Twice a day. topiramate (TOPAMAX) 25 mg Take 25 mg by mouth Once Daily. naloxone (NARCAN) 4 mg/actuation nasal spray [place] 1 [place] in nose As directed for 1 dose. [...] M.D. 08/16/2024 1:20 PM documented in this [facility]11-21-2024 Hospital Discharge instructions* Discharge Instructions* Luci Victoria [...] follow up appointment has been made for Nov 27 at 1:30 If this appointment needs to be cancelled or rescheduled please call the nurse at [phone]. If you have any questions or concerns about your procedure please call: [phone] or [phone]. These instructions have been explained to me. I understand their content and have received a copy. Sign: Witness: Thank you for choosing [facility] Interventional Department documented in this encounterSaint Joseph East11-14-2024 Hospital Discharge instructions* Discharge Instructions* Mike Horner [...] or rescheduled please call the nurse at [phone]. If you have any questions or concerns about your procedure please call: [phone] or [phone]. These instructions have been explained to me. I understand their content and have received a copy. Sign: Witness: Thank you for choosing [facility] Interventional Department documented in this encounterSaint Joseph East11-14-2024 History and physical note* Minda Gómez MD [...] % vial ONE TIME PRMax Mcclendon MD 12.5 g at 07/26/24 1637 [COMPLETED] albumin human 25 % vial ONE TIME Max Strickland MD 12.5 g at 07/26/24 1647 [COMPLETED] lidocaine (preservative free) 20 mg/mL (2 %) injection ONE TIME PRMinda Lima MD 10 mL at 07/19/24 1616 [COMPLETED] albumin human 25 % vial ONE TIME Minda Davila MD 12.5 g at 07/19/24 1704 [COMPLETED] [...] fluticasone propionate (FLONASE) 50 mcg/Actuation nasal spray [place] 50 mcg in each nostril Once Daily. One spray both nostrils daily ferrous sulfate 325 mg (65 mg iron) DR tablet Take 325 mg by mouth Once Daily. Spironolacton-Hydrochlorothiaz 50-50 mg Tab Take 50 mg by mouth Twice a day. topiramate (TOPAMAX) 25 mg Take 25 mg by mouth Once Daily. naloxone (NARCAN) 4 mg/actuation nasal spray [place] 1 [place] in nose As directed for 1 dose. [...] Minda Gómez M.D., MD 08/09/2024 1:26 PM [facility] Work Phone: [phone] 701-466711-14-2024 History and physical note* Minda Gómez MD [...] fluticasone propionate (FLONASE) 50 mcg/Actuation nasal spray [place] 50 mcg in each nostril Once Daily. One spray both nostrils daily ferrous sulfate 325 mg (65 mg iron) DR tablet Take 325 mg by mouth Once Daily. Spironolacton-Hydrochlorothiaz 50-50 mg Tab Take 50 mg by mouth Twice a day. topiramate (TOPAMAX) 25 mg Take 25 mg by mouth Once Daily. naloxone (NARCAN) 4 mg/actuation nasal spray [place] 1 [place] in nose As directed for 1 dose. [...] MD 08/09/2024 1:26 PM documented in this encounterSaint Joseph East11-07-2024 History and physical note* Ginger Milton MD [...] fluticasone propionate (FLONASE) 50 mcg/Actuation nasal spray [place] 50 mcg in each nostril Once Daily. One spray both nostrils daily ferrous sulfate 325 mg (65 mg iron) DR tablet Take 325 mg by mouth Once Daily. Spironolacton-Hydrochlorothiaz 50-50 mg Tab Take 50 mg by mouth Twice a day. topiramate (TOPAMAX) 25 mg Take 25 mg by mouth Once Daily. naloxone (NARCAN) 4 mg/actuation nasal spray [place] 1 [place] in nose As directed for 1 dose. [...] Signed: Ginger Milton M.D. 08/02/2024 2:59 PM [facility] Work Phone: [phone] 590-339811-07-2024 History and physical note* Ginger Milton MD [...] fluticasone propionate (FLONASE) 50 mcg/Actuation nasal spray [place] 50 mcg in each nostril Once Daily. One spray both nostrils daily ferrous sulfate 325 mg (65 mg iron) DR tablet Take 325 mg by mouth Once Daily. Spironolacton-Hydrochlorothiaz 50-50 mg Tab Take 50 mg by mouth Twice a day. topiramate (TOPAMAX) 25 mg Take 25 mg by mouth Once Daily. naloxone (NARCAN) 4 mg/actuation nasal spray [place] 1 [place] in nose As directed for 1 dose. [...] M.D. 08/02/2024 2:59 PM documented in this [facility]11-07-2024 Hospital Discharge instructions* Discharge Instructions* Mike Horner [...] or rescheduled please call the nurse at [phone]. If you have any questions or concerns about your procedure please call: [phone] or [phone]. These instructions have been explained to me. I understand their content and have received a copy. Sign: Witness: Thank you for choosing [facility] Vascular [facility] Interventional Department documented in this encounterSaint Joseph East10-31-2024 Emergency department Note* Davy Isaacs RN - 07/26/2024 5:11 PM EDT Discharge instructions and education provided at this time. Patient verbalizes understanding of discharge instructions and education. IV access removed. Follow up care and instructions reviewed with patient. No complaints noted at this time. VSS. Pt declines wheelchair and ambulated out of ED at this time to lobby to wait on ride [facility]-31-[facility] Emergency department Note* Davy Isaacs RN - [...] - 07/26/2024 12:52 PM EDT Carolina Hightower [[id number]] (F) - 48 y.o. Note Creation:07/26/2024 Encounter [...] states she is currently staying at the [facility] recovering from methamphetamines. She deniesfever, chills, [...] Paracentesis performed by Max Rico MD at [facility] PARACENTESIS N/A 07/09/2024 Paracentesis performed by Ginger Milton MD at [facility] PARACENTESIS N/A 07/19/2024 Paracentesis performed by Minda Gómez MD at [facility] ULTRASOUND GUIDANCE N/A 07/02/2024 Ultrasound Guidance performed by Max Rico MD at [facility] ULTRASOUND GUIDANCE N/A 07/09/2024 Ultrasound Guidance performed by Ginger Milton MD at [facility] ULTRASOUND GUIDANCE N/A 07/19/2024 Ultrasound Guidance performed by Minda Gómez MD at [facility] No family history on [...] fluticasone propionate (FLONASE) 50 mcg/Actuation nasal spray [place] 50 mcg in each nostril Once Daily. One spray both nostrils daily ferrous sulfate 325 mg (65 mg iron) DR tablet Take 325 mg by mouth Once Daily. Spironolacton-Hydrochlorothiaz 50-50 mg Tab Take 50 mg by mouth Twice a day. topiramate (TOPAMAX) 25 mg Take 25 mg by mouth Once Daily. naloxone (NARCAN) 4 mg/actuation nasal spray [place] 1 [place] in nose As directed for 1 dose. [...] 25.5 - 35.9 s Results None Plan: [facility] ED RECHECK: Discharge: The pt is awake, alert and STABLE appearing at time of reevaluation. I spoke with the patient about her ED work up, diagnosis and any further treatment. I discussed the importance of following up on 07/27 at 1030 am with Jhonatan Banda NP at the [facility]. Iinstructed her to return to the Emergency [...] am with Jhonatan Banda NP at the [facility]. Discharge References/Attachments Cirrhosis of the Liver (AfterCare(R) Instructions(ER/ED)) (Samoan) Scribe Attestation: I, Gigi Isaacs, am acting [...] PM EDT Patient to room 27 from [facility] at this time. documented in this encounterSaint Joseph East10-31-2024 Note Procedure: Ultrasound guided therapeutic paracentesis Indication: [...] sonographic guidance using aseptic technique a 6.5 [place] merit resolve drainage catheter was placed into [...] Technically successful ultrasound-guided therapeutic paracentesis as above. [facility]10-31-[facility]24 Emergency department Note* Davy Isaacs RN - 07/26/2024 4:14 PM EDT Pt to IR. [facility]10-31-2024 Emergency department Note* Davy Isaacs RN - 07/26/2024 3:48 PM EDT Report to [facility] in IR [facility]10-31-2024 Hospital Discharge instructions* Discharge Instructions* Gigi Isaacs - 07/26/2024 1:31 PM EDT Follow up as scheduled on 07/27 at 1030 am with Jhonatan Banda NP at the [facility]. * Attachments The following attachments cannot be sent through Care Everywhere. * Cirrhosis of the Liver (AfterCare(R) Instructions(ER/ED)) (Samoan) documented in this encounterSaint Joseph East10-31-2024 Physician Emergency department Note* Pete Ponce MD - 07/26/2024 12:52 PM EDT Carolina Hightower [[id number]] (F) - 48 y.o. Note Creation:07/26/2024 Encounter [...] states she is currently staying at the [facility] recovering from methamphetamines. She deniesfever, chills, [...] Paracentesis performed by Max Rico MD at [facility] PARACENTESIS N/A 07/09/2024 Paracentesis performed by Ginger Milton MD at [facility] PARACENTESIS N/A 07/19/2024 Paracentesis performed by Minda Gómez MD at [facility] ULTRASOUND GUIDANCE N/A 07/02/2024 Ultrasound Guidance performed by Max Rico MD at [facility] ULTRASOUND GUIDANCE N/A 07/09/2024 Ultrasound Guidance performed by Ginger Milton MD at [facility] ULTRASOUND GUIDANCE N/A 07/19/2024 Ultrasound Guidance performed by Minda Gómez MD at [facility] No family history on [...] fluticasone propionate (FLONASE) 50 mcg/Actuation nasal spray [place] 50 mcg in each nostril Once Daily. One spray both nostrils daily ferrous sulfate 325 mg (65 mg iron) DR tablet Take 325 mg by mouth Once Daily. Spironolacton-Hydrochlorothiaz 50-50 mg Tab Take 50 mg by mouth Twice a day. topiramate (TOPAMAX) 25 mg Take 25 mg by mouth Once Daily. naloxone (NARCAN) 4 mg/actuation nasal spray [place] 1 [place] in nose As directed for 1 dose. [...] 25.5 - 35.9 s Results None Plan: [facility] ED RECHECK: Discharge: The pt is awake, alert and STABLE appearing at time of reevaluation. I spoke with the patient about her ED work up, diagnosis and any further treatment. I discussed the importance of following up on 07/27 at 1030 am with Jhonatan Banda NP at the [facility]. Iinstructed her to return to the Emergency [...] am with Jhonatan Banda NP at the [facility]. Discharge References/Attachments Cirrhosis of the Liver (AfterCare(R) Instructions(ER/ED)) (Samoan) Scribe Attestation: I, Gigi Isaacs, am acting as scribe for and in the presence of Pete Ponce MD. Electronically Signed By Gigi Isaacs 07/26/24 12:55 PM Provider Attestation: I personally performed the services described in the documentation, reviewed the documentation recorded by the scribe in my presence and it accurately and completely records my words and actions. [facility]-31-[facility] Emergency department Note* Davy Isaacs RN - 07/26/2024 12:31 PM EDT Assumed care of pt. Pt presented to ED with complaints of abdominal swelling. Pt reports she has abdominal swelling and pain, has been more swollen than she has been in the past with this issue. NADN, AOX3, side rails up X2, call light in reach [facility]10-31-2024 Emergency department Note* Kemal Thao, NASH - 07/26/2024 12:15 PM EDT Patient to room 27 from [facility] at this time. [facility]10-24-[facility]24 Hospital Discharge instructions* Discharge Instructions* Luci Victoria [...] or rescheduled please call the nurse at [phone]. If you have any questions or concerns about your procedure please call: [phone] or [phone]. These instructions have been explained to me. I understand their content and have received a copy. Sign: Witness: [facility] * Attachments The following attachments cannot be sent through Care Everywhere. * Liver Disease Diet (Geometrician) (Samoan) documented in this encounterSaint Joseph East10-24-2024 History and physical note* Minda Gómez MD [...] fluticasone propionate (FLONASE) 50 mcg/Actuation nasal spray [place] 50 mcg in each nostril Once Daily. One spray both nostrils daily ferrous sulfate 325 mg (65 mg iron) DR tablet Take 325 mg by mouth Once Daily. Spironolacton-Hydrochlorothiaz 50-50 mg Tab Take 50 mg by mouth Twice a day. topiramate (TOPAMAX) 25 mg Take 25 mg by mouth Once Daily. naloxone (NARCAN) 4 mg/actuation nasal spray [place] 1 [place] in nose As directed for 1 dose. [...] Minda Gómez M.D., MD 07/19/2024 3:55 PM [facility] Work Phone: [phone]) 591-768110-24-2024 History and physical note* Minda Gómez MD [...] fluticasone propionate (FLONASE) 50 mcg/Actuation nasal spray [place] 50 mcg in each nostril Once Daily. One spray both nostrils daily ferrous sulfate 325 mg (65 mg iron) DR tablet Take 325 mg by mouth Once Daily. Spironolacton-Hydrochlorothiaz 50-50 mg Tab Take 50 mg by mouth Twice a day. topiramate (TOPAMAX) 25 mg Take 25 mg by mouth Once Daily. naloxone (NARCAN) 4 mg/actuation nasal spray [place] 1 [place] in nose As directed for 1 dose. [...] MD 07/19/2024 3:55 PM documented in this [facility]10-15-2024 Hospital course Narrative* Tod Son DO - [...] patient prescribing narcan. [facility]. Paracentesisfluid culture without organism growth therefore able to stop antibiotics prior to discharge. Consults to: wellness recovery, interventional radiology Disposition: home Discharge Condition: good Discharge Medications: Discharge Medication List as of 07/10/2024 12:09 PM START taking these medications Details naloxone (NARCAN) 4 mg/actuation nasal spray [place] 1 [place] in nose As directed for 1 dose. [...] fluticasone propionate (FLONASE) 50 mcg/Actuation nasal spray [place] 50 mcg in each nostril Once Daily. [...] Tod Son DO 07/10/2024 documented in this encounterSaint Joseph East10-15-2024 History of Present illness Narrative* Clifford Archuleta [...] PM EDT Spoke with Brandi from the [facility] to notify them patient is being [...] light if she needed assistance. * Tod Son, - 07/09/2024 6:06 PM EDT HOSPITAL MEDICINE PROGRESS NOTE Patient: Carolina Hightower Room: 4D189/1R768D Admit Date: 07/08/2024 Hospital Day: LOS: 0 [...] 07/09/2024 11:44 AM EDT Attempted to contact [facility] for dcp. No answer at this time. Notified Wellness SW of possible dc tomorrow. Valentine Kline, PRODUCT SCIENTIST, CHAIRMAN AND CHIEF EXECUTIVE OFFICER [employer] * Kraig Fernando LPN - 07/09/2024 10:22 AM EDT Called [facility] at [phone] spoke to [facility] for medication verification, stated she would send to nurse for that information. Fax number provided. * Kraig Fernando LPN - 07/09/2024 9:35 AM EDT Pt in room from procedure. A/Ox3. NAD noted. Site on right side clean dry. No drainage noted. IV site saline locked. No redness or swelling noted. Pt states no needs at this time. * Yumiko Rivas, RN - 07/09/2024 3:47 AM EDT Pt arrived to 4D189. Pt is AOx3. No signs of distress noted. Pt states she is having anxiety from being in ER for 12 hours. She is a resident at [facility] in [place], [place]. Pt is unable to state what medications she takes, attempted to call the facility but no answer. Will attempt to call facility in the morning. Bed in lowest locked position, call light within reach. Will continue to monitor. * Mary Ellen Chino RN - 07/09/2024 3:29 AM EDT ADMISSION CHART CHECK COMPLETE. documented in this encounterSaint Joseph East10-15-2024 Note* Care Plan Note - Clifford Archuleta, [...] Adequate nutritional intake Description: Interventions: -Consult to motorcycle assembler -Intake and output measurement -Calorie count if [...] Adequate for Discharge 07/10/2024 141 by Clifford Archuleta, NASH Outcome: Adequate for Discharge 07/10/2024 1413 by Clifford Archuleta RN Outcome: Ongoing Problem: Skin Integrity, Impaired, Risk for Goal: Absence of pressure injury Description: Interventions: - Skin assessment - Patient repositioning every 2 hours if decreased mobility 07/10/2024 1415 by Clifford Archuleta, NASH Outcome: Adequate for Discharge 07/10/2024 1413 by Clifford Archuleta, NASH Outcome: Adequate for [...] 1413 by Clifford Archuleta RN Outcome: Ongoing [facility]10-15-2024 Miscellaneous Notes* Care Plan Note - Clifford [...] Adequate nutritional intake Description: Interventions: -Consult to motorcycle assembler -Intake and output measurement -Calorie count if indicated 07/10/20241414 by Clifford Archuleta RN Outcome: Adequate [...] Adequate for Discharge 07/10/2024 141 by Clifford Archuleta, NASH Outcome: Adequate for Discharge 07/10/2024 1413 by Clifford Archuleta, NASH Outcome: Ongoing * Care Plan Note - [...] in low position -Bed wheels locked 07/10/2024 1413 by Clifford Archuleta RN Outcome: Adequate for Discharge 07/10/2024 1413 by Clifford Archuleta RN Outcome: Ongoing Problem: Discharge Planning Goal: Knowledge of discharge instructions Description: Interventions: 1. Consult social work for post discharge needs 2. Education, activity restrictions 3. Education, post discharge follow up 4. Education, prescribed medication 5. Education, when to call provider 6. Education, discharge diet 07/10/2024 1413 by Clifford Archuleta, NASH Outcome: Adequate for Discharge 07/10/2024 1413 by Clifford Archuleta, NASH Outcome: Ongoing Problem: Activity Intolerance Goal: Improved activity tolerance Description: Interventions: 1. Education, prescribed activity level 2. Progressive ambulation program 07/10/2024 1413 by Clifford Archuleta RN Outcome: [...] Adequate nutritional intake Description: Interventions: -Consult to motorcycle assembler -Intake and output measurement -Calorie count if [...] Adequate nutritional intake Description: Interventions: -Consult to motorcycle assembler -Intake and output measurement -Calorie count if [...] Totals Intake/Output 07/09/24 0700 - 07/10/24 [id number] 4097-6768 Total Intake P.O. 2032 480 2512 I.V. 11 -- 11 Blood 0 -- 0 Other 0 -- 0 Total Intake 2043 480 2523 Output Urine 0 -- 0 [...] Diuretics SDOH Screen Assessed? Completed Discharge Planning [facility] Expected Discharge Date Education Provided Other [...] 07/09/24 0659 07/09/24 07 - 07/10/24 0659 [phone] 3172-3200 Total 9427-3666 8839-7912 Total Intake P.O. -- 284 571 6251 -- 2031 I.V. -- 0 0 11 -- 11 Blood -- 0 0 0 -- 0 Other -- 0 0 0 -- 0 Total Intake -- 134 673 7901 -- 2042 Output Urine -- 0 0 [...] Diuretics SDOH Screen Assessed? Completed Discharge Planning [facility] Expected Discharge Date Education Provided Other (Comment) N/A * Care Plan Note - Bozena Kline - 07/09/2024 2:46 PM EDT SW DISCHARGE/TREATMENT PLAN: 07/09/24 Anticipate return to the [facility] at discharge with facility for transportation. Report not needed. [facility] requests Brandi Barnes be contact to arrange transportation on dayof discharge @ [phone] Wellness is following SW will remain following VIV Aguirre, CHAIRMAN AND CHIEF EXECUTIVE OFFICER [employer] * Handoff Documentation - Kraig Fernando LPN [...] Totals Intake/Output 07/08/24 0700 - 07/09/24 0659 2173-8362 1688-9815 Total Intake P.O. -- 960 960 I.V. [...] Diuretics SDOH Screen Assessed? Completed Discharge Planning [facility] Expected Discharge Date Education Provided Other [...] Adequate nutritional intake Description: Interventions: -Consult to motorcycle assembler -Intake and output measurement -Calorie count if indicated 07/09/2024614 by Yumiko Rivas, RN Outcome: Ongoing 07/09/2024613 by Yumiko Rivas, RN Outcome: Ongoing Goal: Body weight within specified parameters Description: Interventions: - Body weight measurement 07/09/2024614 by Yumiko Rivas, RN Outcome: Ongoing 07/09/2024613 by Yumiko Rivas, RN Outcome: Ongoing Problem: Pain, Acute Goal: [...] Rivas, RN Outcome: Ongoing documented in this encounterSaint [facility] East10-15-2024 Note* Care Plan Note - Clifford Archuleta, [...] RN Outcome: Adequate for Discharge 07/10/20241412 by Cliffrod Archuleta RN Outcome: Ongoing Problem: Activity Intolerance [...] Adequate nutritional intake Description: Interventions: -Consult to motorcycle assembler -Intake and output measurement -Calorie count if indicated 07/10/2024 141 by Clifford Archuleta RN Outcome: Adequate for Discharge 07/10/2024 141 by Clifford Archuleta RN Outcome: Ongoing Goal: Body weight within specified parameters Description: Interventions: - Body weight measurement 07/10/2024 1413 by Clifford Archuleta RN Outcome: [...] 141 by Clifford Archuleta RN Outcome: Ongoing [facility]-15-2024 Note* Handoff Documentation - Nita Anne RN [...] time. Environmental scans complete for pt safety. [facility]-15-2024 Note* Care Plan Note - Rachel Ronquillo [...] Adequate nutritional intake Description: Interventions: -Consult to motorcycle assembler -Intake and output measurement -Calorie count if [...] Education, deep venous thrombosis prophalaxis Outcome: Ongoing [facility]-15-2024 Note* End of Shift Note - Rachel [...] Totals Intake/Output 07/09/24 0700 - 07/10/24 0659 [phone] 5821-5175 Total Intake P.O. 2031 480 2512 I.V. [...] Diuretics SDOH Screen Assessed? Completed Discharge Planning [facility] Expected Discharge Date Education Provided Other (Comment) medication importance. [facility]-14-2024 Note* Handoff Documentation - Rachel Ronquillo RN - 07/09/2024 7:58 PM EDT Took over care of the patient from Drea CAO.Patient resting in bed. Fall precautions in place. No distress noted. Call light within reach. Complete environmental scan/screen at this time to ensure patient safety. Will continue to monitor. [facility]-14-2024 Note* Handoff Documentation - Nita Anne RN [...] time. Environmental scans complete for pt safety. [facility]-14-20[facility] Note* End of Shift Note - Kraig [...] 07/09/24 0659 07/09/24 07 - 07/10/24 [phone] 3913-3122 Total 1883-3738 3536-7827 Total Intake P.O. -- 841 690 8289 -- 2031 I.V. -- 0 0 11 -- 11 Blood -- 0 0 0 -- 0 Other -- 0 0 0 -- 0 Total Intake -- 729 681 0772 -- 2042 Output Urine -- 0 0 [...] Diuretics SDOH Screen Assessed? Completed Discharge Planning [facility] Expected Discharge Date Education Provided Other (Comment) N/A [facility]-14-[facility] Consult note* Oscar Sylvester LCSW - 07/09/2024 4:25 PM EDTAssociated Order(s): IP CONSULT TO WELLNESS [employer] SOC[employer] WORK SHELL attempted to speak with patient. After SW identified himself and what I was there to assess, sherefused to discuss and stated" I am so tired of talking about this shit". [facility] Work Phone: 1(342) 699-992510-14-2024 Consult note* Oscar Sylvester LCSW - 07/09/2024 4:25 PM EDTAssociated Order(s): IP CONSULT TO WELLNESS RECOVERY SOCIAL WORK SHELL attempted to speak with patient. After SW identified himself and what I was there to assess, kalaefused to discuss and stated" I am so tired of talking about this shit". * Bozena Kline - 07/09/2024 2:42 PM EDTAssociated Order(s): IP CONSULT TO SOCIAL WORK; IP CONSULT TO SOCIAL WORK SOCIAL WORK ASSESSMENT LONG TERM/PERSONAL CARE/ASSISTED LIVING/REHABILITATION RESIDENT DATE: 07/09/24 NAME: Carolina [...] further evaluation FACILITY NAME AND CONTACT INFO: [facility] [phone] ([facility]) PAYOR SOURCE/LOC/BED HOLD: [employer], [employer] [place] Medicaid * Is insurance pre-cert required before return: No * Does a new PASRR need completed prior to return: No SPECIALTY SERVICES/CARE DIGITAL COMMENTATOR : SUPPORT SYSTEM: Staff at center MEDICAL HISTORY: Past Medical History: Diagnosis Date Ascites Chronic hepatitis C virus infection (CMS/HCC) Cirrhosis (CMS/HCC) DISCUSSION & INTERVENTION: Pt plans to return to [facility] at ak. SW confirmed pt able to return at ak. Advised by [facility] to contact Brandi Barnes for transportation [phone] DISPOSITION/NEXT STEPS: SW DISCHARGE/TREATMENT PLAN: 07/09/24 Anticipate return to the [facility] at discharge with facility for transportation. Report not needed. [facility] requests Brandi Barnes be contact to arrange transportation on dayof discharge @ [phone] Wellness is following SW will remain following VIV Aguirre, CHAIRMAN AND CHIEF EXECUTIVE OFFICER Gaming Associate * Elisa Cross, VERA - 07/09/2024 2:01 PM EDTAssociated Order(s): IP CONSULT TO WELLNESS RECOVERY SALES EXECUTIVE SUBSTANCE USE CONSULTATION DATE OF ADMISSION: 07/08/2024 DATE OF SERVICE: 07/09/2024 LOS: 0 ATTENDING PROVIDER Tod Cohn DO IDENTIFYING DATA: This was a 48 y.o. female who presently resides Other [facility], [place] [address]. The patient was admitted to the 4D189/7H822H due to Transfer Report Alcoholic cirrhosis of [...] on d/c requirements for readmission acceptance, wellness high school social studies teacher to work closely with facility on needs.Pr [...] fluticasone propionate (FLONASE) 50 mcg/Actuation nasal spray [place] 50 mcg in each nostril Once Daily. [...] treatment - would like to return to [facility] in [place], [place]- Wellness SW assisting with D/Cplanning. Dangers of polysubstance abuse were discussed with the patient to include but not limited to the risk of overdose and . Patient verbalized adequate understanding. Narcan RX provided as well as administration education CBT/CL: Recommend Counseling/Behavioral modification program with group and IC and peer support counseling sessions PATTERN GRADER CUTTER and endoscopy support specialist following patient and assisting with d/c planning. as well as working with Nurse visual merchandising manager for socioeconomic needs. The patient was given a substance abuse resource list which includes inpatient and outpatient rehabilitation programs in [place], [place], and [place]. Advised to establish care with PCP Thank you for consult. Please consult or contact Wellness [facility] with any questions. Signed: Elisa Cross NP 07/09/2024 2:01 PM Associated attestation - Jessie Victor MD - 07/10/2024 3:09 PM EDT Signed: Jessie Victor MD 07/10/2024 3:09 PM * Charly Vaz APSS - 07/09/2024 1:45 PM EDTAssociated Order(s): IP CONSULT TO WELLNESS RECOVERY SITE LEADER New Peer Support Consult Presenting Problem: Patient [...] she just started being seen at [facility] in [facility] and will continue to follow up there. [...] - 07/09/2024 5:10 PM EDT Agree with SALES EXECUTIVE note * Ginger Milton MD - 07/09/2024 [...] M.D. 07/09/2024 7:51 AM documented in this encounterSaint [facility]10-14-[facility] Note* Care Plan Note - Raisa Bozena - 07/09/2024 2:46 PM EDT DISCHARGE/TREATMENT PLAN: 07/09/24 Anticipate return to the [facility] at discharge with facility for transportation. Report not needed. [facility] requests Brandi Barnes be contact to arrange transportation on dayof discharge @ [phone] Wellness is following SW will remain following Valentine Kline, PRODUCT SCIENTIST, CHAIRMAN AND CHIEF EXECUTIVE OFFICER Gaming Associate [facility]10-14-2024 Consult note* Bozena Kline - 07/09/2024 2:42 PM EDTAssociated Order(s): IP CONSULT TO SOCIAL WORK; IP CONSULT TO SOCIAL WORK SOCIAL WORK ASSESSMENT LONG TERM/PERSONAL CARE/ASSISTED LIVING/REHABILITATION RESIDENT DATE: 07/09/24 NAME: Carolina [place] INTERVIEW CONDUCTED WITH/INFORMATION OBTAINED FROM: staff, pt [...] further evaluation FACILITY NAME AND CONTACT INFO: [facility] [phone] ([facility]) PAYOR SOURCE/LOC/BED HOLD: [employer], [employer] [place] Medicaid * Is insurance pre-cert required before return: No * Does a new PASRR need completed prior to return: No SPECIALTY SERVICES/CARE DIGITAL COMMENTATOR : SUPPORT SYSTEM: Staff at center MEDICAL HISTORY: Past Medical History: Diagnosis Date Ascites Chronic hepatitis C virus infection (CMS/HCC) Cirrhosis (CMS/HCC) DISCUSSION & INTERVENTION: Pt plans to return to [facility] at ak. SW confirmed pt able to return at ak. Advised by [facility] to contact Barndi Barnes for transportation [phone] DISPOSITION/NEXT STEPS: DISCHARGE/TREATMENT PLAN: 07/09/24 Anticipate return to the [facility] at discharge with facility for transportation. Report not needed. [facility] requests Brandi Barnes be contact to arrange transportation on dayof discharge @ [phone] Wellness is following SW will remain following VIV Aguirre, CHAIRMAN AND CHIEF EXECUTIVE OFFICER Gaming Associate [facility]10-14-2024 Consult note* Elisa Cross NP - 07/09/2024 2:01 PM EDTAssociated Order(s): IP CONSULT TO WELLNESS RECOVERY SALES EXECUTIVE SUBSTANCE USE CONSULTATION DATE OF ADMISSION: 07/08/2024 DATE OF SERVICE: 07/09/2024 LOS: 0 ATTENDING PROVIDER Tod Cohn, IDENTIFYING DATA: This was a 48 y.o. female who presently resides Other [facility], [place] [address]. The patient was admitted to the 4D189/0V469H due to Transfer Report Alcoholic cirrhosis of [...] Pt states she wishes to return [facility] at d/c. Will check with facility on d/c requirements for readmission acceptance, wellness high school social studies teacher to work closely with facility on needs.Pr [...] fluticasone propionate (FLONASE) 50 mcg/Actuation nasal spray [place] 50 mcg in each nostril Once Daily. [...] 109 07/09/2024415 CO2 21 07/09/2024415 GLUCOSE 77 07/09/20246 BUN 13 07/09/2024415 CREATININE 0.9 07/09/2024415 CALCIUM 9.2 07/09/2024415 PROTEINTOTAL 7.0 07/09/2024415 TBILIRUBIN 1.9 07/09/2024415 ALP 96 07/09/2024415 AST 89 07/09/2024415 ALTSGPT 54 07/09/2024415 ALBUMIN 3.1 07/09/2024415 AGRATIO 0.8 07/09/2024415 Hepatic Panel: Lab Results Component Value Date/Time TBILIRUBIN 1.9 07/09/2024415 ALBUMIN 3.1 07/09/20246 ALTSGPT 54 07/09/20246 AST 89 07/09/2024415 ALP 96 07/09/2024415 PROTEINTOTAL [...] treatment - [facility] [place], [place]- Wellness SW assisting with D/Cplanning. Dangers of polysubstance abuse were discussed with the patient to include but not limited to the risk of overdose and . Patient verbalized adequate understanding. Narcan RX provided as well as administration education CBT/CL: Recommend Counseling/Behavioral modification program with group and IC and peer support counseling sessions PATTERN GRADER CUTTER and endoscopy support specialist following patient and assisting with d/c planning. as well as working with Nurse visual merchandising manager for socioeconomic needs. The patient was given a substance abuse resource list which includes inpatient and outpatient rehabilitation programs in [place], [place], and [place]. Advised to establish care with PCP Thank you for consult. Please consult or contact [facility] with any questions. Signed: Elisa Cross NP 07/09/2024 2:01 PM Associated attestation - Jessie Victor MD - 07/10/2024 3:09 PM EDT Signed: Jessie Victor MD 07/10/2024 3:09 PM [facility]10-14-2024 Consult note* Charly Vaz APSS - 07/09/2024 1:45 PM EDTAssociated Order(s): IP CONSULT TO WELLNESS RECOVERY SITE LEADER New Peer Support Consult Presenting Problem: Patient [...] she just started being seen at [facility] in [facility] and will continue to follow up there. PSS encouraged patient. Provided and discussed resource options for local [facility] services. Collaborated with Wellness & Recovery Team and Social Work Team. Charly Vaz [facility]10-14-2024 Consult note* Namrata Lozano APRN - 07/09/2024 [...] - 07/09/2024 5:10 PM EDT Agree with SALES EXECUTIVE note [facility] Work Phone: 1(383) 353-317010-14-2024 Consult note* Ginger Milton MD - 07/09/2024 [...] Signed: Ginger Milton M.D. 07/09/2024 7:51 AM [facility] Work Phone: 1(865) 849-758210-14-2024 Note* Handoff Documentation - Kraig Fernando LPN - 07/09/2024 7:00 AM EDT Received report from NASH Lu. [facility]10-14-2024 Note* End of Shift Note - Yumiko [...] Totals Intake/Output 07/08/24 0700 - 07/09/24 [phone] [id number] Total Intake P.O. -- 960 960 I.V. [...] Diuretics SDOH Screen Assessed? Completed Discharge Planning [facility] Expected Discharge Date Education Provided Other (Comment) fall risks [facility]10-14-2024 Note* Care Plan Note - Yumiko Rivas [...] Adequate nutritional intake Description: Interventions: -Consult to motorcycle assembler -Intake and output measurement -Calorie count if indicated 07/09/2024614 by Yumiko Rivas, NASH Outcome: Ongoing 07/09/2024613 by Yumiko Rivas, RN Outcome: Ongoing Goal: Body weight within specified parameters Description: Interventions: - Body weight measurement 07/09/2024614 by Yumiko Rivas, NASH Outcome: Ongoing 07/09/2024613 by Yumiko Rivas, RN Outcome: Ongoing Problem: Pain, Acute Goal: [...] by Yumiko Rivas, NASH Outcome: Ongoing Goal: Knowledge of deep venous thrombosis Description: Interventions: - Education, deep venous thrombosis signs and symptoms - Education, ambulation - Education, graduated anti-embolic stockings - Education, deep venous thrombosis prophalaxis 07/09/2024614 by Yumiko Rivas, RN Outcome: Ongoing 07/09/2024613 by Yumiko Rivas, RN Outcome: Ongoing [facility]10-14-2024 Emergency department Note* Mohit Barnes, NASH - 07/09/2024 1:56 AM EDT Care handoff discussed and patient update given to Tabitha on 4D. [facility]10-14-2024 Emergency department Note* Mohit Barnes RN - 07/09/2024 1:56 AM EDT Care handoff discussed and patient update given to Tabitha on 4D. * Scot Pillai RN - 07/08/2024 6:16 PM EDT Arrived to ED with as transfer from [facility]. Patient has complaints of abd swelling and pain. States that on Tuesday she had a paracentesis and had 3 liters taken but was transferred today when she went back in. Patient alert and oriented x 3. * Lambert Veliz DO - 07/08/2024 5:38 PM EDT Carolina Hightower [[id number]] (F) - 48 y.o. Note Creation:07/08/2024 Encounter Date:07/08/2024 History Chief Complaint Patient presents with Transfer Report HPI Patient is a 48 y.o. female with a hx of cirrhosis and hepatitis C presents to the ED via EMS as a transfer report from [facility] for evaluation of ascites. Patient was accepted [...] Paracentesis performed by Max Rico MD at [facility] ULTRASOUND GUIDANCE N/A 07/02/2024 Ultrasound Guidance performed by Max Rico MD at [facility] No family history on [...] Hospitalist accepts the patient for admission. Plan: [facility] ED RECHECK: Admit: The pt is awake [...] DO 07/08/2024 11:50 PM documented in this [facility]10-13-2024 History and physical note* River Arguelles MD [...] smokeless tobacco. Allergies: Wellbutrin [bupropion] and Codeine DIGITAL COMMENTATOR Medications: None Review of Systems: comprehensive review [...] sonographic guidance aseptic trocar technique a 6.5 [place] MERIT resolve drainage catheter was placed into [...] No results for input(s): "CK", "CKMB", "TROPIHSBASE", "MFSJKDO9K", "MUHIOQJ2B" in the last 72 hours. CMP: Recent [...] Signed: River Arguelles MD 07/08/2024 7:57 PM [facility]10-13-2024 History and physical note* River Arguelles MD [...] smokeless tobacco. Allergies: Wellbutrin [bupropion] and Codeine DIGITAL COMMENTATOR Medications: None Review of Systems: comprehensive review [...] sonographic guidance aseptic trocar technique a 6.5 [place] MERIT resolve drainage catheter was placed into [...] No results for input(s): "CK", "CKMB", "TROPIHSBASE", "JHQYYPY2G", "CULGNGO5B" in the last 72 hours. CMP: Recent [...] MD 07/08/2024 7:57 PM documented in this [facility]10-13-2024 Emergency department Note* Scot Pillai RN - 07/08/2024 6:16 PM EDT Arrived to ED with as transfer from [facility]. Patient has complaints of abd swelling and pain. States that on Tuesday she had a paracentesis and had 3 liters taken but was transferred today when she went back in. Patient alert and oriented x 3. [facility]10-13-2024 Physician Emergency department Note* Lmabert Veliz, - 07/08/2024 5:38 PM EDT Carolina Hightower [[id number]] (F) - 48 y.o. Note Creation:07/08/2024 Encounter Date:07/08/2024 History Chief Complaint Patient presents with Transfer Report HPI Patient is a 48 y.o. female with a hx of cirrhosis and hepatitis C presents to the ED via EMS as a transfer report from [facility] for evaluation of ascites. Patient was accepted [...] Paracentesis performed by Max Rico MD at [facility] ULTRASOUND GUIDANCE N/A 07/02/2024 Ultrasound Guidance performed by Max Rico MD at [facility] No family history on [...] Source Respirations Temp Temp src 07/08/241799 -- 07/08/24 1800 07/08/241799 -- 63 13 97 F (36.1 C) [...] Hospitalist accepts the patient for admission. Plan: [facility] ED RECHECK: Admit: The pt is awake [...] By Lambert Veliz DO 07/08/2024 11:50 PM [facility]10-10-2024 Emergency department Note* Pete Ponce MD - 07/05/2024 12:28 PM EDT Carolina Hightower [[id number]] (F) - 48 y.o. Note Creation:07/05/2024 Encounter Date:07/05/2024 History Chief Complaint Patient presents with Swelling abdomen Carolina Hightower is a 48 y.o. female with hx of Hep C cirrhosis who presents to the ED via PV from [facility] with c/o abdominal distention that began several days ago. She also notes she has gained 7 lbs since Tuesday. Per chart review, pt was evaluated in ED on 07/02 and received paracentesis by Dr. Rico. Pt notes she was evaluated in [facility] and is not transplant candidate. She denies fever, chills, CP, SOB, n/v, or any other pertinent symptoms or concerns. She denies any otheraggravating or alleviating factors. She denies any other pertinent PMHx. Pt requests pain medication for joint aches. Pt does not have GI or PCP in [facility] and states she wants f/u appointments arrangedin [place] and does not plan on going back to [place]. The history is provided by the patient and medical records. Past Medical History: Diagnosis Date Ascites Chronic hepatitis C virus infection (CMS/HCC) Cirrhosis (CMS/HCC) Past Surgical History: Procedure Laterality Date HX LIVER BIOPSY HX POST STERILIZATION PARACENTESIS N/A 07/02/2024 Paracentesis performed by Max Rico MD at [facility] ULTRASOUND GUIDANCE N/A 07/02/2024 Ultrasound Guidance performed by Max Rico MD at [facility] No family history on [...] A IGM NEGATIVE Negative Results None Plan: [facility] ED RECHECK: Discharge: The pt is awake, alert and stable appearing at time of reevaluation. I spoke with the patient about her ED work up, diagnosis and any further treatment. I discussed the importance of following up with the GI doctor for further evaluation as scheduled. Also, follow up at the [facility] Clinic as scheduled to establish a primary [...] Discharged Condition Stable Comment -- Follow-up Information [facility] Interventional Radiology . Specialty: Interventional Radiology Contact information: [address] [place] [phone] Discharge Instructions Follow with the GI doctor for further evaluation as scheduled on 07/18 at [address] Welsh. Also, follow up at the [facility] Clinic as scheduled on 07/27 at 1030 am with Jhonatan Banda NP to establish a primary care provider. Discharge References/Attachments Cirrhosis of the Liver (AfterCare(R) Instructions(ER/ED)) (Samoan) Scribe Attestation: I, Gigi Isaacs, am acting as scribe for and in the presence of Pete Ponce MD. Electronically Signed By Gigi Isaacs 07/05/24 1:02 PM Provider Attestation: I personally performed the services described in the documentation, reviewed the documentation recorded by the scribe in my presence and it accurately and completely records my words and actions. documented in this encounterSaint [facility]10-10-2024 Physician Emergency department Note* Pete Ponce MD - 07/05/2024 12:28 PM EDT Carolina Hightower [[id number]] (F) - 48 y.o. Note Creation:07/05/2024 Encounter Date:07/05/2024 History Chief Complaint Patient presents with Swelling abdomen Carolina Hightower is a 48 y.o. female with hx of Hep C cirrhosis who presents to the ED via PV from [facility] with c/o abdominal distention that began several days ago. She also notes she has gained 7 lbs since Tuesday. Per chart review, pt was evaluated in ED on 07/02 and received paracentesis by Dr. Rico. Pt notes she was evaluated in [facility] and is not transplant candidate. She denies fever, chills, CP, SOB, n/v, or any other pertinent symptoms or concerns. She denies any otheraggravating or alleviating factors. She denies any other pertinent PMHx. Pt requests pain medication for joint aches. Pt does not have GI or PCP in [facility] and states she wants f/u appointments arrangedin [place] and does not plan on going back to [place]. The history is provided by the patient and medical records. Past Medical History: Diagnosis Date Ascites Chronic hepatitis C virus infection (CMS/HCC) Cirrhosis (CMS/HCC) Past Surgical History: Procedure Laterality Date HX LIVER BIOPSY HX POST STERILIZATION PARACENTESIS N/A 07/02/2024 Paracentesis performed by Max Rico MD at [facility] ULTRASOUND GUIDANCE N/A 07/02/2024 Ultrasound Guidance performed by Max Rico MD at [facility] No family history on [...] A IGM NEGATIVE Negative Results None Plan: [facility] ED RECHECK: Discharge: The pt is awake, alert and stable appearing at time of reevaluation. I spoke with the patient about her ED work up, diagnosis and any further treatment. I discussed the importance of following up with the GI doctor for further evaluation as scheduled. Also, follow up at the [facility] Clinic as scheduled to establish a primary [...] Discharged Condition Stable Comment -- Follow-up Information [facility] Interventional Radiology . Specialty: Interventional Radiology Contact information: [address] [place] [address] [place] [phone] Discharge Instructions Follow with the GI doctor for further evaluation as scheduled on 07/18 at [address] Welsh. Also, follow up at the [facility] Clinic as scheduled on 07/27 at 1030 am with Jhonatan Banda NP to establish a primary care provider. Discharge References/Attachments Cirrhosis of the Liver (AfterCare(R) Instructions(ER/ED)) (Samoan) Scribe Attestation: I, Gigi Isaacs, am acting as scribe for and in the presence of Pete Ponce MD. Electronically Signed By Gigi Isaacs 07/05/24 1:02 PM Provider Attestation: I personally performed the services described in the documentation, reviewed the documentation recorded by the scribe in my presence and it accurately and completely records my words and actions. [facility]10-10-2024 History of Present illness Narrative* Perla Cox RN - 07/05/2024 12:19 PM EDT Follow-up appt w/ Dr. Welsh on July 18 at 11:00am. Info given to nurse, Jamia, to give to Pt. Dr. Ponce aware. documented in this encounterSaint [facility] East10-10-2024 Hospital Discharge instructions* Discharge Instructions* Pete Ponce MD - 07/05/2024 12:03 PM EDT Follow with the GI doctor for further evaluation as scheduled on 07/18 at [address] Welsh. Also, follow up at the [facility] Clinic as scheduled on 07/27 at 1030 am with Jhonatan Banda NP to establish a primary care provider. * Attachments The following attachments cannot be sent through Care Everywhere. * Cirrhosis of the Liver (AfterCare(R) Instructions(ER/ED)) (Samoan) documented in this encounterSaint [facility] East10-07-2024 Emergency department Note* Hi Lara RN - 07/02/2024 4:04 PM EDT Patient states she is not waiting on d/c paperwork and left facility. [facility]-07-2024 Emergency department Note* Hi Lara RN - 07/02/2024 4:04 PM EDT Patient states she is not waiting on d/c paperwork and left facility. * Hi Lara RN - 07/02/2024 3:06 PM EDT Pt arrived back from paracentesis. * Pete Ponce MD - 07/02/2024 11:47 AM EDT Carolina Hightower [[id number]] (F) - 48 y.o. Note Creation:07/02/2024 Encounter Date:07/02/2024 History Chief Complaint Patient presents with Swelling Carolina Hightower is a 48 y.o. female with hx of ascites, Hep C, liver cirrhosis who presents to the ED via PV from [facility] with c/o abdominal swelling that began within the last few days. She notesshe has alcoholic and Hep C cirrhosis of the liver and had paracentesis in [place], [place] two weeks ago where she had 8L drained. She denies any pain complaints. Pt notes she has been at the [facility] for a week recovering from meth. [...] Patient Position BP Location Heart Rate (Monitor) 07/02/2495307/02/2454 07/02/2454 -- -- 129/65 Automatic Sitting Pulse Pulse Source Respirations Temp Temp Source 07/02/2454 07/02/24 0954 07/02/24 0954 07/02/2454 07/02/24953 64 Brachial 19 98.7 F [...] sonographic guidance aseptic trocar technique a 6.5 [place] MERIT resolve drainage catheter was placed into [...] TAKE TO IR LAB FOR PARACENTESIS. Plan: [facility] ED RECHECK: Discharge: The pt is awake, [...] stable at time of discharge back to [facility]. Medical Decision Making DIFFERENTIAL DIAGNOSIS Differential [...] Treatment Condition Stable Comment -- Follow-up Information [facility] Interventional Radiology In 1 week. Specialty: Interventional Radiology Contact information: [address] [place] [address] [address] [facility] [phone] Kusum Coughlin MD. Specialties: Gastroenterology, Reading Provider Contact information: [address] [place] [address] [address] [facility] [address] Discharge Instructions FOLLOW UP WITH THE GI DOCTOR TO ESTABLISH CARE OR AT THE NEAREST [facility]. RETURN TO ED IF ANY NEW [...] my words and actions. documented in this encounterSaint [facility] Emergency department Note* Hi Lara RN - 07/02/2024 3:06 PM EDT Pt arrived back from paracentesis. [facility] NoteProcedure: Ultrasound-guided diagnostic and therapeutic paracentesis Indication: [...] sonographic guidance aseptic trocar technique a 6.5 Rw[place]an MERIT resolve drainage catheter was placed into [...] paracentesis as above. Laboratory studies are pending. [facility] Hospital Discharge instructions* Discharge Instructions* Pete Ponce MD - 07/02/2024 2:19 PM EDT FOLLOW UP WITH THE GI DOCTOR TO ESTABLISH CARE OR AT THE NEAREST [facility]. RETURN TO ED IF ANY NEW OR WORSENING SYMPTOMS. documented in this encounterSaint Joseph East10-07-2024 Physician Emergency department Note* Pete Ponce MD - 07/02/2024 11:47 AM EDT Carolina Hightower [[id number]] (F) - 48 y.o. Note Creation:07/02/2024 Encounter Date:07/02/2024 History Chief Complaint Patient presents with Swelling Carolina Hightower is a 48 y.o. female with hx of ascites, Hep C, liver cirrhosis who presents to the ED via PV from [facility] with c/o abdominal swelling that began within the last few days. She notesshe has alcoholic and Hep C cirrhosis of the liver and had paracentesis in [place], [place] two weeks ago where she had 8L drained. She denies any pain complaints. Pt notes she has been at the [facility] for a week recovering from meth. [...] 07/02/2454 07/02/24 0954 07/02/24 0954 07/02/24 0954 07/02/24953 64 Brachial 19 98.7 F (37.1 C) Oral SpO2 SPO2 Location O2 Delivery O2 Device O2 Flow Rate (l/min) 07/02/2454 07/02/2454 07/02/2495307/02/24 1242 -- 100 % Right Arm Room [...] sonographic guidance aseptic trocar technique a 6.5 Rw[place]an MERIT resolve drainage catheter was placed into [...] TAKE TO IR LAB FOR PARACENTESIS. Plan: [facility] ED RECHECK: Discharge: The pt is awake, [...] stable at time of discharge back to [facility]. Medical Decision Making DIFFERENTIAL DIAGNOSIS Differential [...] Treatment Condition Stable Comment -- Follow-up Information [facility] Interventional Radiology In 1 week. Specialty: Interventional Radiology Contact information: [address] [place] [address] [address] [facility] [address] Kusum Coughlin MD. Specialties: Gastroenterology, Reading Provider Contact information: [address] [place] [address] [address] [facility] [address] Discharge Instructions FOLLOW UP WITH THE GI DOCTOR TO ESTABLISH CARE OR AT THE NEAREST [facility]. RETURN TO ED IF ANY NEW [...] and completely records my words and actions. [facility] History and physical note* Max Rico MD [...] Signed: Max Rico MD 07/02/2024 10:53 AM [facility] Work Phone: 1(635) 787-807210-07-2024 History and physical note* Max Rico MD [...] MD 07/02/2024 10:53 AM documented in this encounterSaint Joseph East09-06-2024 Telephone encounter Note* Telephone Encounter - Dacia Acosta MD - 06/01/2024 1:58 PM EDT Treated with antibiotics in the hospital, discharged on Cipro and Flagyl. Dacia Acosta MD [facility]09-06-2024 Miscellaneous Notes* Telephone Encounter - Dacia [...] 10:50 AM EDT Pt was discharged from [facility] on 05/31/24. Maye Younger LPN * Telephone Encounter - Dacia Acosta MD - 06/01/2024 10:23 AM EDT If she remains in the hospital these results will be handled by the hospital providers. Dacia Acosta MD * Telephone Encounter - Obed Mesa RN - 06/01/2024 10:00 AM EDT Sandi with [facility] Lab called in inpatient lab results. She states the Pt has a paracentesis and the fluid culture grew rare entero coccus with some possible anaerobes (but this isn't final). She said the sensitivity should be back tomorrow on the entero coccus. Per Savannah Hargrove RN nurse canvass manager Dr Acosta has to care for Pt until 06/21/24 until she has time to find a new PCP. documented in this encounterMer[facility]09-[facility]24 Telephone encounter Note * Telephone Encounter [...] Bactrim DS was discontinued. Melisa Vick MA [facility]09-06-2024 Telephone encounter Note* Telephone Encounter - Dacia Acosta MD - 06/01/2024 1:42 PM EDT Can we get her discharge summary to see what medications she was treated with? Dacia Acosta MD [facility]09-06-2024 Telephone encounter Note* Telephone Encounter - Maye Younger LPN - 06/01/2024 10:50 AM EDT Pt was discharged from [facility] on 05/31/24. Maye Younger LPN [facility]09-06-2024 Telephone encounter Note* Telephone Encounter - Dacia Acosta MD - 06/01/2024 10:23 AM EDT If she remains in the hospital these results will be handled by the hospital providers. Dacia Acosta MD [facility]09-06-2024 Telephone encounter Note* Telephone Encounter - Obed Mesa RN - 06/01/2024 10:00 AM EDT Sandi with [facility] Lab called in inpatient lab results. She states the Pt has a paracentesis and the fluid culture grew rare entero coccus with some possible anaerobes (but this isn't final). She said the sensitivity should be back tomorrow on the entero coccus. Per Savannah Hargrove RN nurse canvass manager Dr Acosta has to care for Pt until 06/21/24 until she has time to find a new PCP. [facility] Telephone encounter Note* Telephone Encounter - Obed Mesa RN - 06/01/2024 9:48 AM EDT Sandi with [facility] Lab/Microbiology called in to give lab reports on Pt stating that Dr Acosta's office had said that Pt care had been transferred to Claribel Lagunas SENIOR PROFESSIONAL SERVICES CONSULTANT. I let her know that Pt didn't have any PCP listed through [facility] and no establish care visit. I gave her the [employer] phone # [phone] to call with any questions. [facility]09-06-2024 Miscellaneous Notes* Telephone Encounter - Obed Mesa RN - 06/01/2024 9:48 AM EDT Sandi with [facility] Lab/Microbiology called in to give lab reports on Pt stating that Dr Acosta's office had said that Pt care had been transferred to Claribel Lagunas SENIOR PROFESSIONAL SERVICES CONSULTANT. I let her know that Pt didn't have any PCP listed through [facility] and no establish care visit. I gave her the [employer] phone # [phone] to call with any questions. * Telephone Encounter - Janna Troncoso RN - 06/01/2024 9:36 AM EDT Kaylin calling from [facility] Lab/Microbiology with positive test results for patient. Informed Kaylin per record, as of 05/30/24, patient has been dismissed from department, and patient to contact [facility] office with questions at [phone]. Janna Troncoso RN documented in this encounterMer[facility]09-06-2024 Telephone encounter Note * Telephone Encounter - Janna Troncoso RN - 06/01/2024 9:36 AM EDT Kaylin calling from [facility] Lab/Microbiology with positive test results for patient. Informed Kaylin per record, as of 05/30/24, patient has been dismissed from department, and patient to contact [facility] office with questions at [phone]. Janna Troncoso RN [facility]09-05-2024 History of Present illness Narrative* Park Katelyn, [facility] - 05/31/2024 6:38 AM EDT Chart review reveals a recent lab test performed at [facility]. Unexpected results found as part of [...] Rash Wellbutrin [Bupropi* Other: See Comments dari Park RPh Clinical Pharmacist, Hepatology & HCV [facility] P: ; F: Pool: P CC SPEC GROUP 3 documented in this encounterMercy Health [facility]08-29-2024 Telephone encounter Note * Telephone Encounter - Radha Christensen RN - 05/24/2024 5:37 PM EDT Attempted to contact patient. VM full. Radha Christensen RN [facility]08-29-2024 Miscellaneous Notes* Telephone Encounter - Radha [...] 2:47 PM EDT See previous message. Kortney, Flooring Grader @ [facility] calling back to say patient [facility] The prescribing physician is not available and Urologist, Dr. Dawson [place]. She is asking if PCP can prescribe the Bactrim? Script was for Bactrim DS 800-160 mg twice daily for 5 days. [facility]. Please let Kortney know if script sent. # [phone]. Radha Christensen RN * Telephone Encounter - Joanie Stahl RN - 05/23/2024 2:12 PM EDT Kortney- 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 [facility], reports patient had a stent placed and was placed on Bactrim on 05-15-24. Pt can't find the bactrim, and she thought pcp was going to order it again. Advised per chart it does not appear bactrim was ordered by pcp. Kortney states she will check with urology. Kortney reports pt seems confused. documented in this encounterMercy Health [facility]08-29-2024 Telephone encounter Note * Telephone Encounter - Joanie Stahl RN - 05/24/2024 11:21 AM EDT Left detailed vm on identified vm with provider's message below. [facility]08-29-2024 Telephone encounter Note* Telephone Encounter - Dacia Acosta MD - 05/24/2024 10:09 AM EDT OK for Bactrim as ordered Dacia Acosta MD [facility]08-28-2024 Telephone encounter Note* Telephone Encounter - Radha Christensen RN - 05/23/2024 2:47 PM EDT See previous message. Kortney, Flooring Grader @ [facility] calling back to say patient lost the Bactrim that was prescribed @ [facility] 05/15. The prescribing physician is not available and Urologist, Dr. Dawson is [place] the [place]. She is asking if PCP can prescribe the Bactrim? Script was for Bactrim DS 800-160 mg twice daily for 5 days. [facility]. Please let Kortney know if script sent. . Radha Christensen RN [facility]08-28-2024 Telephone encounter Note* Telephone Encounter - Joanie Stahl RN - 05/23/2024 2:12 PM EDT Kortney- 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 [facility], reports patient had a stent placed and was placed on Bactrim on 05-15-24. Pt can't find the bactrim, and she thought pcp was going to order it again. Advised per chart it does not appear bactrim was ordered by pcp. Darletta states she will check with urology. Darletta reports pt seems confused. [facility]08-27-2024 Telephone encounter Note* Telephone Encounter - Ne Alonso LPN - 05/22/2024 3:12 PM EDT [facility] notified. [facility]08-27-2024 Miscellaneous Notes* Telephone Encounter - Ne Alonso LPN - 05/22/2024 3:12 PM EDT [facility] notified. * Telephone Encounter - Dacia Acosta MD - 05/22/2024 1:36 PM EDT OK to fill a week early as requested Dacia Acosta MD * Telephone Encounter - Joanie Stahl, RN - 05/22/2024 1:24 PM EDT [facility] reports patient lost her meds again- gabapentin, ferrous sulfate, and vitamin C. Asking for verbal from pcp to give patient refills a week early. Please phone [facility] with verbal: [phone] [facility] is going to put patient on a weekly fill and patient will have to go to pharmacy weekly to filler picker her medications. documented in this encounterMercy Health [facility]08-27-2024 Telephone encounter Note * Telephone Encounter - Dacia Acosta MD - 05/22/2024 1:36 PM EDT OK to fill a week early as requested Dacia Acosta MD [facility]08-27-2024 Telephone encounter Note* Telephone Encounter - Joanie Stahl RN - 05/22/2024 1:24 PM EDT [facility] reports patient lost her meds again- gabapentin, ferrous sulfate, and vitamin C. Asking for verbal from pcp to give patient refills a week early. Please phone [facility] with verbal: [phone] [facility] is going to put patient on a weekly fill and patient will have to go to pharmacy weekly to filler picker her medications. [facility]08-22-2024 Telephone encounter Note* Telephone Encounter - Dacia Acosta MD - 05/17/2024 11:51 AM EDT Noted; I agree with the advice given; check with Urology or return to ER Dacia Acosta MD [facility]08-22-2024 Miscellaneous Notes* Telephone Encounter - Dacia Acosta MD - 05/17/2024 11:51 AM EDT Noted; I agree with the advice given; check with Urology or return to ER Dacia Acosta MD * Telephone Encounter - Mary Orozco RN - 05/17/2024 10:52 AM EDT Patient calls to report that she recently was discharged from [facility] after right stent placement for kidney [...] anything. Mary Orozco RN documented in this encounterMercy Health [facility]08-22-2024 Telephone encounter Note * Telephone Encounter - Mary Orozco RN - 05/17/2024 10:52 AM EDT Patient calls to report that she recently was discharged from [facility] after right stent placement for kidney [...] probably won't do anything. Mary Orozco RN [facility]08-20-2024 History of Present illness Narrative* Erik Salas [...] PAST SURGICAL HISTORY OF Comment: liver bx [facility] ALLERGIES Allergen Reactions Aspirin UNCERTAIN =CHILDHOOD [...] No jaundice or rash. No petechiae. 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 No focal motor weakness. DTRs are symmetric and normal. MUSCULOSKELETAL: No joint swelling or tenderness. No muscle wasting. documented in this encounterMercy Health [facility]08-20-2024 Telephone encounter Note * Telephone Encounter - Lyssa Hector MA - 05/15/2024 9:25 AM EDT Message sent on [employer] with normal results Lyssa Hector MA [facility]08-20-2024 Miscellaneous Notes* Telephone Encounter - Lyssa Hector MA - 05/15/2024 9:25 AM EDT Message sent on [employer] [facility] with normal results Lyssa Hector MA * Telephone Encounter - Claribel Lagunas APRN.CNP - 05/15/2024 9:00 AM EDT Please let patient know she is negative for trichomonas. documented in this encounterMercy Health [facility]08-20-2024 Telephone encounter Note * Telephone Encounter - Claribel Lagunas APRN.CNP - 05/15/2024 9:00 AM EDT Please let patient know she is negative for trichomonas. [facility] Work Phone: 1(166) 451-480008-16-2024 Telephone encounter Note* Telephone Encounter - Ledy Orantes MA - 05/11/2024 10:36 AM EDT Call to pt and notified her of results below from Provider. Pt verbalized understanding. Ledy Orantes MA [facility]08-16-2024 Miscellaneous Notes* Telephone Encounter - Ledy Orantes [...] lab in 1 week. documented in this encounterMercy Health [facility]08-16-2024 Telephone encounter Note * Telephone Encounter - Claribel Lagunas APRN.CNP - 05/11/2024 9:18 AM EDT Please let patient know her HIV and syphilis is negative. Her potassium is low at 3.4. I would likeher to repeat this lab in 1 week. [facility]08-15-2024 History of Present illness Narrative* Claribel Lagunas [...] PAST SURGICAL HISTORY OF Comment: liver bx [facility] Family History FAMILY HISTORY Problem Relation [...] Z87.42 - CONSULT TO GYNECOLOGY Claribel Lagunas APRN.MONUMENTAL STONEMASON documented in this encounterMercy Health Lor[facility] Hospital08-14-2024 Telephone encounter Note * Telephone Encounter - Kayleen Rapp MA - 05/09/2024 7:36 PM EDT Pt was notified of the results. Pt verbalized understanding. Kayleen Rapp MA [facility]08-14-2024 Miscellaneous Notes* Telephone Encounter - Kayleen Rapp MA - 05/09/2024 7:36 PM EDT Pt was notified of the results. Pt verbalized understanding. Kayleen Rapp MA * Telephone Encounter - Lynn Prabhakar MD - 05/09/2024 6:57 PM EDT Urine culture did not show a clear infection. Finish antibiotic and follow up with PCP for recheck of urine. documented in this encounterMercy Health [facility] Hospital08-14-2024 Telephone encounter Note * Telephone Encounter - Lynn Prabhakar MD - 05/09/2024 6:57 PM EDT Urine culture did not show a clear infection. Finish antibiotic and follow up with PCP for recheck of urine. [facility] Work Phone: 1(350) 775-121108-12-2024 History of Present illness Narrative* Therese Dowling APRN.MONUMENTAL STONEMASON - 05/07/2024 10:58 AM EDT Images from the original note were not included. Subjective HPI Carolina Hightwoer is a 48 year old female who [...] PAST SURGICAL HISTORY OF Comment: liver bx [facility] ALLERGIES Aspirin, Bupropion, Codeine, Prednisone, and [...] illness Therese Dowling APRN.DEEPIKA documented in this encounterMercy Health [facility]08-12-2024 Instructions* Patient Instructions* Therese Dowling APRN.CNP - 05/07/2024 10:56 AM EDT ASSESSMENT/PLAN: 1. [...] illness Therese Dowling APRN.DEEPIKA documented in this encounterMercy Health [facility] Hospital08-07-2024 Telephone encounter Note * Telephone Encounter - Symone Sanchez LPN - 05/02/2024 2:30 PM EDT Phoned [facility] ans spoke to darell Bliss rx sent to pharmacy for the Gabapentin. [facility]08-07-2024 Miscellaneous Notes* Telephone Encounter - Symone Sanchez LPN - 05/02/2024 2:30 PM EDT Phoned [facility] ans spoke to darell Bliss rx [...] - 05/02/2024 1:41 PM EDT Ruthy from [facility] calling to check status of note. Patient has been released from snf [facility]. Asking if could refill her Gabapentin rx one week early? Patient has a ride to filler picker rx this afternoon. Sending note to SENIOR PROFESSIONAL SERVICES CONSULTANT to review. Please advise * Telephone Encounter - Jessica Cox LPN - 05/02/2024 8:45 AM EDT Ruthy calling from [facility], pt was incarcerated & now does not have her medications. She was advised by pharmacy to contact the snf to see if they have her meds but if they do not they are asking if they can fill her meds early? It will 7 days early & will include gabapentin. Please advise. Jessica Cox LPN documented in this encounterMercy Health [facility] Hospital08-07-2024 Telephone encounter Note * Telephone Encounter - Tresa Sandoval APRN.CNP - 05/02/2024 2:22 PM EDT The following approved medication requests have been transmitted electronically. Requested Prescriptions Signed Prescriptions Disp Refills gabapentin (NEURONTIN) 100 mg capsule 60 capsule 5 Sig: Take 1 capsule by mouth two times a day for 180 days. Authorizing Provider: TRESA SANDOVAL APRN.DEEPIKA [facility]08-07-2024 Telephone encounter Note* Telephone Encounter - Symone Sanchez LPN - 05/02/2024 1:41 PM EDT Ruthy from [facility] pharmacy calling to check status of note. Patient has been released from snf [facility]. Asking if could refill her Gabapentin rx one week early? Patient has a ride to filler picker rx this afternoon. Sending note to SENIOR PROFESSIONAL SERVICES CONSULTANT to review. Please advise [facility]08-07-2024 Telephone encounter Note* Telephone Encounter - Jessica Cox LPN - 05/02/2024 8:45 AM EDT Ruthy calling from [facility], pt was incarcerated & now does not have her medications. She was advised by pharmacy to contact the snf to see if they have her meds but if they do not they are asking if they can fill her meds early? It will 7 days early & will include gabapentin. Please advise. Jessica Cox LPN [facility]08-06-2024 Telephone encounter Note* Telephone Encounter - Yessenia Kline - 05/01/2024 9:10 AM EDT Scheduled with patient. [facility] Work Phone: 1(894) 236-767708-06-2024 Miscellaneous Notes* Telephone Encounter - Yessenia Kline - 05/01/2024 9:10 AM EDT Scheduled with patient. * Telephone Encounter - Kaylin Dominguez - 04/27/2024 11:49 AM EDT Lvm for patient to return the call. Please schedule new pt with either Masci or Abramovich. Not urgent Kaylin Dominguez documented in this encounterMercy Health [facility] Hospital08-02-2024 Telephone encounter Note * Telephone Encounter - Kaylin Dominguez - 04/27/2024 11:49 AM EDT Lvm for patient to return the call. Please schedule new pt with either Masci or Abramovich. Not urgent Kaylin Dominguez [facility]07-26-2024 Instructions* Patient Instructions* Mervin Ambrocio APRN.CNP - 04/20/2024 2:03 PM EDT Cefdinir twice daily for 7 days. documented in this encounterMercy Health Lorain Hospital07-26-2024 History of Present illness Narrative* Mervin Ambrocio [...] here for hospital follow-up. Patient went to [facility] on April 11 for flank pain. [...] Ambien today. [facility]. Patient [...] SPRAY,SUSPENSION Mervin Ambrocio APRN.CNP documented in this encounterMercy Health Lorain Hospital07-23-2024 History of Present illness Narrative* Mervin Ambrocio APRN.CNP - 04/17/2024 1:31 PM EDT Noted Mervin Ambrocio APRN.CNP * Ne Alonso LPN - 04/17/2024 12:26 PM EDT [facility] FOLLOW UP INITIAL CONTACT Provider Action/FYI: Initial contact with patient post discharge, spoke to Patient. Patient identified by name and date : YES SUMMARY: -Patient discharged from [facility] ED on 04/13/2024. -Follow up appointment [...] COURSE: Ne Alonso LPN documented in this encounterMercy Health Lorain Hospital07-03-2024 Note. MICRO - Microbiology PROCEDURE: Blood [...] Locations *1: This test was performed at: [address], [facility] , [facility] ([place])03-28-2024 Note. MICRO - Microbiology PROCEDURE: Blood Culture [...] Locations *1: This test was performed at: [facility], [address] [place] [address], [id number] , [facility] ([place])03-23-2024 Hospital Discharge instructions Patient Education 03/23/2024 17:50:27 [...] or higher after 2 days on antibiotics [id number] [employer]. [address] [place] [address], [place] [address]. All rights reserved. This information is not intended as a substitute for professional medical care. Always follow yourhealthcare professional's instructions. Follow Up Care 03/23/2024 14:19:24 With:DACIA ACOSTA MD Address: [address] [place] [address]- When:2-[address] [facility] 06-28-2024 Note Discharge Instructions Thank you for allowing [place] to assist you with your healthcare needs. The following is importantdischarge information regarding your hospital visit. Diagnosis from Today's Visit Cellulitis What to Do Next Instructions from Your Care Team No qualifying data available. Post Acute Orders No qualifying data available. You Need to Schedule the Following Appointments Follow Up with DACIA ACOSTA MD When:Within 2-4 days Where:[address] [place] [id number]- Allergies Wellbutrin aspirin Hives codeine Hives Medications [...] may report side effects to FDA at [phone]-KIB-[phone]. What other drugs will affect cephalexin? Tell your doctor about all your other medicines, especially: metformin; or probenecid. This list is not complete. Other drugs may affect cephalexin, including prescription and [id number] medicines, vitamins, and herbal products. Not all [...] to ensure that the information provided by [employer] ('[employer]') is accurate, up-to-date, and complete, but no guarantee is made to that effect. Drug information contained herein may be time sensitive. [employer] information has been compiled for use by healthcare practitioners and consumers in the [place] and therefore [employer] does not warrant that uses outside of the [place] are appropriate, unless specifically indicated otherwise. [employer] drug information does not endorse drugs, diagnose patients or recommend therapy. [employer] drug information isan informational resource designed to [...] effective or appropriate for any given patient. [employer] does not assume any responsibility for any aspect of healthcare administered with the aid of information [employer] provides. The information contained herein is not intended to cover all possible uses, directions, precautions, warnings, drug interactions, allergic reactions, or adverse effects. If you have questions about the drugs you are taking, check with your doctor, nurse or pharmacist. Copyright 3112-1943 [employer]. Version: 12.. Revision Date: 04/27/2023. Education Materials [...] or higher after 2 days on antibiotics 5268-6253 [employer]. [address] [place] [address]. All rights reserved. This information is not intended as a substitute for professional medical care. Always follow yourhealthcare professional's instructions. Additional Information VACCINATE! IT SAVES LIVES! Members of the community who have not yet received the COVID-19 vaccine and would like to receive it can visit one of [facility] vaccine clinics. There are many vaccine clinic locations within the [facility]. For locations and available times, please visit www.gettheshot.coronavirus.[place].gov/. It is important to note that some COVID mobile vaccine clinics are held outdoors and may be canceled in rainy or stormy conditions. To learn more about pediatric vaccinations (ages 5-11), we invite you to visit the [facility] webpage. https://[email or web address]/[email or web address]-Klgpv-Fradgthjigu-Jwqxpvnvvt-Riwqa-[email or web address] [email or web address].htmlTo learn more about the COVID-19 vaccine, we invite you to visit the CDC website for a list of frequently asked questions. https://www.cdc.gov/coronavirus/2019-ncov/vaccines/faq.html [place] [facility] Patient Portal Access Instructions: Stay connected with your healthcare team and access your personal medical information anytime with the [facility] Patient Portal. If you would like a full copy of your medical records please contact the [facility] Medical Records Department Tuesday through Tuesday between 8a.m. and 4:30p.m. Please follow the directions below to access the portal: 1.Access the email account you provided upon registration to the hospital.2.Look for an invitation email from [facility].3.Open the email and access the invitation link: Accept Invitation to [facility]4.Fill in the required dhillon to create your account. Sign into [email or web address] with your username and password that you [...] you will allow to register on the [facility] Patient Portal for access to your information. You can also access the [employer] Patient Portal on the [employer]. Simply click on "Health Records" under "HealthData" and then click on the [employer] logo. HOW TO SAFELY DISPOSE OF PRESCRIPTION [...] Call your local pharmacy or go to [email or web address] to find one close to you.3.Make use of household items: Use cat litter or old coffee grounds to dispose medications if other options arenot available. Mix your drugs with these household products, seal them in an airtight container andthrow it into the garbage. Call [facility]: [phone] to be sure your drugs can be [...] aware that I should contact my doctor. Patient/Medical Insurance Biller Signature: Date/Time: Relationship to Patient: Witness Name/Signature: Date/Time: 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 Melisa Main MD [facility] Telephone encounter Note * Telephone Encounter [...] finish the antibiotic. Ashanti Squires PA-C 02/07/2024 [facility]05-14-[facility]24 Miscellaneous Notes* Telephone Encounter - Ashanti [...] She states she will be going to [facility], but I couldn't talk her into [...] Urine - Blood In-ADULT- documented in this encounterMer[facility]24 Telephone encounter Note * Telephone Encounter - Obed Mesa RN - 02/06/2024 2:11 PM EDT Phone was answered, I said "hello" a couple times and the phone was hung up on me. [facility]05-13-[facility] Telephone encounter Note* Telephone Encounter - Obed Mesa RN - 02/06/2024 11:52 AM EDT Called and left a voicemail for the Patient to call back and ask for a nurse to receive the providers message. Obed Mesa RN [facility]05-13-2024 Telephone encounter Note* Telephone Encounter - Ashanti Squires PA-C - 02/06/2024 11:14 AM EDT Agree-needs to go to ED now. Ashanti Squires PA-C [facility]05-13-2024 Telephone encounter Note* Telephone Encounter - [...] She states she will be going to [facility], but I couldn't talk her into [...] tied. Protocols used: Urine - Blood In-ADULT- [facility]05-10-2024 Miscellaneous Notes* Telephone Encounter - Kemal [...] [facility] [place] Madonna Lim MA * Telephone Encounter - Ashanti Squires PA-C - 02/02/2024 1:40 PM EDT Please let patient know that her culture did show MRSA on her chin. I have sent a prescription for doxycycline 1 BID to the pharmacy[facility]. Please use sunscreen/sun protection while on this medication as it can make you more sensitive to the sun. The following approved medication requests have been transmitted electronically. Requested Prescriptions Signed Prescriptions Disp Refills doxycycline (VIBRA-TABS) 100 mg tablet 20 tablet 0 Sig: Take 1 tablet by mouth two times a day for 10 days. Authorizing Provider: ASHANTI SQUIRES PA-C 02/02/2024 documented in this encounterMer[facility]24 Telephone encounter Note * Telephone Encounter - Kemal Wright LPN - 02/03/2024 10:45 AM EDT Pt notified. She verbalized understanding. Kemal Wright LPN [facility]05-10-2024 Telephone encounter Note* Telephone Encounter - Dacia Acosta MD - 02/03/2024 10:17 AM EDT She should use the doxycycline as ordered; if not improving after 2-3 days, or if symptoms worsen, then seek care in ER Dacia Acosta MD [facility]05-10-2024 Telephone encounter Note* Telephone Encounter - Madonna Lim MA - 02/03/2024 9:59 AM EDT Pt informed, verbalized understanding. Pt reports she is now urinating straight blood and reports she may have a fever. Reports she was upall night with urinary frequency. Denies any abd/back pain or vomiting. Please advise. Madonna Lim MA [facility]05-09-2024 Telephone encounter Note* Telephone Encounter - Ashanti Squires PA-C - 02/02/2024 4:43 PM EDT Please let patientknow that her urine culture was also positive for MRSA-covered by doxycycline prescribed-sent to pharmacy. Advise f/u if not improving in 2-3 days, sooner if any worsening symptoms. Seek care in ED for fever >100, vomiting, severe back/abdominal pain. [facility]05-09-20[facility] Telephone encounter Note* Telephone Encounter - Madonna Lim MA - 02/02/2024 3:18 PM EDT Pt informed, verbalized understanding. [facility] [place] Madonna Lim MA [facility]05-09-2024 Telephone encounter Note* Telephone Encounter - [...] days. Authorizing Provider: ASHANTI SQUIRES PA-C 02/02/2024 [facility]05-07-[facility] History of Present illness Narrative* Ashanti Squires [...] is scheduled to dermatology next week in [place]. She admits to previous MRSA infection in [...] 01/31/2024 Ashanti Squires PA-C documented in [facility] encounterMer[facility]04-[facility]24 Telephone encounter Note * Telephone Encounter [...] 180 days. Authorizing Provider: DACIA ACOSTA MA [facility]04-25-2024 Miscellaneous Notes* Telephone Encounter - Ledy Orantes [...] you. Wendy Mcclain LPN. documented in this encounterMer[facility]04-[facility]-2024 Telephone encounter Note * Telephone Encounter - Dacia Acosta MD - 01/19/2024 1:57 PM EDT OK to refill as ordered Dacia Acosta MD [facility]04-25-[facility] Telephone encounter Note* Telephone Encounter - [...] Please advise. Thank you. Wendy Mcclain LPN. [facility]04-03-2024 History and physical note Author Marcelina Friend [facility] December 28, 2023 8:34am Note Date/Time December 28, 2023 8:34 am [facility] Medical Records Department [address] [place] [address] History & Physical Exam 12/28/23 0833 MR#: [id number] Acct: [id number] Name: CAROLINA HIGHTOWER Rep #:[id number] : 1975 48 From: Marcelina Foster DO PCP: Dr. Dacia Acosta MD Status:[facility] Location: [place] [address] History and Physical Date of Admission: 12/28/23 CAROLINA HIGHTOWER, is a 48 F who presented She presented to [facility] ED with increased fatigue, forgetfulness, abdominal [...] % (Auto) 62.4, Lymph % (Auto) 23.3, Stevens % (Auto) 10.7 H, Eos % (Auto) [...] Sl. Cloudy, Urine pH 6.5, Ur Specific Amity 1.015, Urine Protein 30 H, Urine Glucose [...] % (Auto) 51.5, Lymph % (Auto) 30.9, Stevens % (Auto) 13.5 H, Eos % (Auto) [...] exam. 12/28/23 0834 <Electronically signed by Marcelina Foster DO> Cosigner Signature (if applicable): CC: Dr. Dacia Acosta MD; Marcelina Foster DO~ Signed [facility] Work Phone: 1(397) 364-552304-03-2024 Procedure [facility] 12-28-2023 Procedure [facility]03-19-2024 History of Present illness Narrative* Mervin Ambrocio APRN.MONUMENTAL STONEMASON - 12/13/2023 1:00 PM EDT Chief Complaint Patient presents with: ER F/U: [facility] multiple times from 10/2023-11/3023: abdominal pain, cirrhosis of liver, ascites HPI Carolina Hightower is a 48 year old female who presents here today for Hospital Discharge Follow up. Patient is here for emergency room and hospital follow-up. Patient has had multiple trips to the emergency room at [facility]. 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 I discussed that if she [...] ONDANSETRON 4 MG DISINTEGRATING TABLET Mervin Ambrocio APRN.MONUMENTAL STONEMASON This note was partly generated using [employer] voice recognition dictation and may contain some misspelled or inaccurate words missed on review. documented in this encounterMer[facility]03-18-2024 Miscellaneous Notes* Telephone Encounter - Obed Mesa [...] to make it in. documented in this encounterMer[facility]03-15-2024 Discharge summary Author Shon Quintero [facility] December 09, 2023 11:32pm Note Date/Time December 09, 2023 9:3 4pm [facility] Medical Records Department [address] [place] [address] Emergency Department Summary 12/09/23 MR#: [id number] Acct: [id number] Name: CAROLINA HIGHTOWER Rep #:[id number] : [...] <CONCHIS Robles - Last Filed: 12/09/23 22:47> PFSH Medical History Alcohol abuse Anemia Anxiety [...] Method Room Air Room Air Room Air THADDEUS <CONCHIS Robles - Last Filed: 12/09/23 22:47> THADDEUS Lab Data Labs: Laboratory Results - last [...] % (Auto) 64.5 Lymph % (Auto) 21.5 Stevens % (Auto) 10.8 H Eos % (Auto) [...] Clarity Clear Urine pH 6.5 Ur Specific Amity 1.020 Urine Protein 30 H Urine Glucose [...] she had a paracentesis at that time [id number] cc out. Patient states that her abdomen [...] Quintero MD - Last Filed: 12/09/23 23:32> [facility] Narrative Medical decision making narrative: I have [...] % (Auto) 64.5 Lymph % (Auto) 21.5 Stevens % (Auto) 10.8 H Eos % (Auto) [...] Clarity Clear Urine pH 6.5 Ur Specific Amity 1.020 Urine Protein 30 H Urine Glucose [...] your Primary Care Provider. Call [facility] ([phone]) or report to the closest Emergency Room. Call 911 if necessary. 12/09/232246 <Electronically signed by Erik BALDERRAMA> Cosigner Signature (if applicable): 12/09/23 233 <Electronically signed by Isabelle DOOLEY> CC: Dr. Dacia Acosta MD ~ Signed [facility] Work Phone: 1(856) 690-874303-13-2024 Discharge summary Author Son Adams [facility] December 07, 2023 2:39pm Note Date/Time December 07, 2023 2:3 7pm [facility] Medical Records Department [address] [place] [address] Discharge Summary 12/07/23 1437 MR#: [id number] Acct: [id number] Name: CAROLINA HIGHTOWER Rep #:[id number] : 1975 48 From: Son Connelly PCP: Dr. Dacia Acosta MD Status:AD M IN Location: [place] [address] Providers Date of Admission: 12/04/23 Date of [...] Patient can go home to see the toter. 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 Full Code status. Discharge [...] % (Auto) 47.4, Lymph % (Auto) 34.6, Stevens %(Auto) 12.2 H, Eos % (Auto) 4.6, [...] Pollack Instructions Additional Instructions / Restrictions: Advised bukl-bzf-kutyrsw probiotic 1 tablet twice daily. Small frequent [...] Self Care Charges/Coding Visit Charges Inpatient E&M: 26952 Disch Hosp >30min 12/07/23 1439 <Electronically signed by Son Adams MD> Cosigner Signature (if applicable): CC: Dr. Dacia Acosta MD; Dr. Son Adams MD~ Signed [facility] Work Phone: 1(401) 193-375403-13-2024 Discharge summary Author Son Adams [facility] December 07, 2023 2:37pm Note Date/Time December 07, 2023 2:3 1pm [facility] Medical Records Department [address] [place] [address] Instructions for Home/Discharge Instructions 12/07/23 0720 MR#: [id number] Acct: [id number] Name: CAROLINA HIGHTOWER Rep #:[id number] : [...] can be placed): Home, Self Care 12/07/23 3662<Electronically signed by Son Adams MD>Son Adams MD CC: PREMA Pollack; Dr. Sowmya Mirza MD; Dr. Dacia Acosta MD ~ Signed [facility] Work Phone: 1(219) 196-958203-13-2024 History of Present illness Narrative* Priscilla Del Angel RN - 12/07/2023 2:47 PM EDT TRANSITION CARE MANAGEMENT (TCM) FOLLOW-UP NOTE Provider Action/FYI: Spoke to patient. States she was admitted to [facility] Tuesday. (12/04/23) Pt states she was admitted for cirrhosis Apologized to the patient. Telephone outreach ended. Patient identified by name and date of : YES Spoke to patient Discharge Network Status: In-Network Discharge Concerns: Pt is currently admitted at [facility] plan for next outreach: No further follow up needed at this time YANELI Education Ordered -: No Signature Priscilla Del Angel RN December 07, 2023 documented in this encounterMer[facility]03-13-2024 Consult note Author Ricardo Pollack [facility] December 07, 2023 8:01am Note Date/Time December 07, 2023 7:4 9am [facility] Medical Records Department [address] [place] [address] Consultation 12/07/23 0748 MR#: [id number] Acct: [id number] Name: CAROLINA HIGHTOWER Rep #:[id number] : 1975 48 From: Ricardo luciano DPM PCP: Dr. Dacia Acosta MD Status:AD M IN Location: [place] [address] Assessment & Plan Assessment/Plan (1) Iron deficiency [...] fitting shoe gear Podiatry to sign off Jr. Melodie Bradley.P.M. [facility] [phone] HPI Consult Data Date of Consult: 12/07/23 HPI Narrative Reason for Consultation: Possible ingrown toenail right hallux HPI Narrative: CAROLINA HIGHTOWER, is a 48 F who presents to [facility] on 12/04/2023 with complaint of abdominal [...] % (Auto) 48.6, Lymph % (Auto) 32.1, Stevens % (Auto) 14.6 H, Eos % (Auto) [...] % (Auto) 47.4, Lymph % (Auto) 34.6, Stevens %(Auto) 12.2 H, Eos % (Auto) 4.6, Baso % (Auto) 0.8, Absolute Neuts (auto) 2.5, Absolute Lymphs (auto) 1.82, Nucleated RBC % 0 12/07/23 0801 <Electronically signed by Ricardo Pollack DPM> Cosigner Signature (if applicable): CC: PREMA Pollack; Dr. Sowmya Mirza MD; Dr. Dacia Acosta MD~ Signed [facility] Work Phone: 1(601) 127-748503-12-2024 Progress note Author Son Adams [facility] December 06, 2023 4:40pm Note Date/Time December 06, 2023 4:4 0pm [facility] Medical Records Department [address] [place] [address] Progress Note - Hospitalist 12/06/23 1636 MR#: [id number] Acct: [id number] Name: CAROLINA HIGHTOWER Rep #:[id number] : 1975 48 From: Son Connelly PCP: Dr. Dacia Acosta MD Status:AD M IN Location: [place] [address] 1 Reason for Visit Reason for Visit: [...] % (Auto) 48.6, Lymph % (Auto) 32.1, Stevens % (Auto) 14.6 H, Eos % (Auto) [...] Patient can go home to see the toter. 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 Full Code status. Discharge [...] follow-up instructions. Charges/Coding Visit Charges Inpatient E&M: 66039 Subs Hosp L2 12/06/23 1640 <Electronically signed by Son Adams MD> Cosigner Signature (if applicable): CC: ~ Signed [facility] Work Phone: 1(610) 787-643003-12-2024 Progress note Author Marcelina Foster [facility] December 06, 2023 4:28pm Note Date/Time December 06, 2023 4:2 8pm [facility] Medical Records Department [address] [place] [address] Progress Note - GI 12/06/23 0627 MR#: [id number] Acct: [id number] Name: KATJACAROLINA GARCIA Rep #:[id number] : 1975 48 From: Marcelina Foster DO PCP: Dr. Dacia Acosta MD Status:AD M IN Location: [place] [address] Subjective Subjective Patient feels a lot better [...] % (Auto) 48.6, Lymph % (Auto) 32.1, Stevens % (Auto) 14.6 H, Eos % (Auto) [...] albumin ordered. Charges/Coding Visit Charges Inpatient E&M: 14826 Subs Hosp L3 12/06/23 1623 <Electronically signed by Marcelina Friend DO> Cosigner Signature (if applicable): CC: ~ Signed [facility] Work Phone: 1(152) 465-947403-12-2024 Discharge summary Author Son Adams [facility] December 06, 2023 11:11am Note Date/Time December 06, 2023 11: 09am [facility] Medical Records Department [facility] [place] [address] Discharge Summary 12/06/23 1109 MR#: [id number] Acct: [id number] Name: CAROLINA HIGHTOWER Rep #:[id number] : 1975 48 From: Son Connelly PCP: Dr. Dacia Acosta MD Status:AD M IN Location: [place] [address] Providers Date of Admission: 12/04/23 Primary Care [...] Patient can go home to see the toter. 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 Full Code status. Discharge [...] % (Auto) 48.6, Lymph % (Auto) 32.1, Stevens % (Auto) 14.6 H, Eos % (Auto) [...] Self Care Charges/Coding Visit Charges Inpatient E&M: 57416 Disch Hosp >30min 12/06/23 1111 <Electronically signed by Son Adams MD> Cosigner Signature (if applicable): CC: Dr. Dacia Acosta MD; Dr. Son Adams MD~ Signed [facility] Work Phone: [phone]) 306-251603-12-2024 Discharge summary Author Son Adams [facility] December 06, 2023 11:09am Note Date/Time December 06, 2023 7:5 1am [facility] Medical Records Department [address] [place] [address] Instructions for Home/Discharge Instructions 12/06/23 0749 MR#: [id number] Acct: [id number] Name: CAROLINA HIGHTOWER Rep #:[id number] : [...] MD; Dr. Dacia Acosta MD ~ Signed [facility] Work Phone: 1(671) 904-434203-11-2024 Consult note Author Marcelina Friend [facility] December 05, 2023 4:37pm Note Date/Time December 05, 2023 4:3 7pm [facility] Medical Records Department [address] [place] [address] Consultation - GI 12/05/23 1633 MR#: [id number] Acct: [id number] Name: CAROLINA HIGHTOWER Rep #:[id number] : 1975 48 From: Marcelina Foster DO PCP: Dr. Dacia Acosta MD Status:AD M IN Location: [place] [address] 1 HPI Consult Data Date of Consult: 12/05/23 HPI Narrative Reason for Consultation: Ascites HPI Narrative: CAROLINA HIGHTOWER, is a 48 F who presented She presented to [facility] ED with increased fatigue, forgetfulness, abdominal [...] % (Auto) 62.4, Lymph % (Auto) 23.3, Stevens % (Auto) 10.7 H, Eos % (Auto) [...] Sl. Cloudy, Urine pH 6.5, Ur Specific Amity 1.015, Urine Protein 30 H, Urine Glucose [...] % (Auto) 51.5, Lymph % (Auto) 30.9, Stevens % (Auto) 13.5 H, Eos % (Auto) [...] 19:07 EDT Reading Location ID and State: [facility] / [place] , Service support , [...] prophylaxis: SCDs Charges/Coding Visit Charges Inpatient E&M: 99601 Init Hosp L3 12/05/23 1637 <Electronically signed by Marcelina Friend DO> Cosigner Signature (if applicable): CC: Dr. Sowmya Mirza MD; Dr. Dacia Acosta MD~ Signed [facility] Work Phone: 1(927) 614-354903-11-2024 Progress note Author Son Adams [facility] December 05, 2023 2:40pm Note Date/Time December 05, 2023 8:2 4am [facility] Medical Records Department [address] [place] [address] Progress Note - Hospitalist 12/05/23 0815 MR#: [id number] Acct: [id number] Name: CAROLINA HIGHTOWER Rep #:[id number] : 1975 48 From: Son Connelly PCP: Dr. Dacia Acosta MD Status:AD M IN Location: [place] [address] Reason for Visit Reason for Visit: Diagnoses [...] % (Auto) 62.4, Lymph % (Auto) 23.3, Stevens % (Auto) 10.7 H, Eos % (Auto) [...] Sl. 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 Full Code status. Charges/Coding Visit Charges Inpatient E&M: 32189 Subs Hosp L2 12/05/23 1440 <Electronically signed by Son Adams MD> Cosigner Signature (if applicable): CC: ~ Signed [facility] Work Phone: 1(806) 249-382703-11-2024 Procedure [facility] 12-04-2023 History and physical note Author Sowmya Mirza [facility] December 04, 2023 9:28pm Note Date/Time December 04, 2023 8:3 7pm [facility] Medical Records Department [address] [place] [address] H&P Exam - Hospitalist 12/04/232032 MR#: [id number] Acct: [id number] Name: CAROLINA HIGHTOWER Rep #:[id number] : 1975 48 From: Sowmya Mirza MD PCP: Dr. Dacia Acosta MD Status:AD M IN Location: [facility] [id number]- [id number] HPI - General General Date of Admission: 12/04/23 Date of Service: 12/04/23 Chief Complaint: Abdominal pain, dysuria. HPI Narrative The patient is a 48 y/o F w/ PMHx: Obesity, Chronic anemia/iron deficiency anemia, Anxiety and Depression, Chronic hepatitis C/cirrhosis with chronic LFT/Bilirubin elevations w/ Hx polysubstance abuse (heroin, cannabis, methamphetamine), Tobacco use, Chronic thrombocytopenia who presents to the [facility] ED on 12/04/23 with history of [...] % (Auto) 62.4, Lymph % (Auto) 23.3, Stevens % (Auto) 10.7 H, Eos % (Auto) [...] Sl. 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 Full Code status. Charges/Coding Visit Charges Inpatient E&M: 25800 Init Hosp L3 12/04/232127 <Electronically signed by Sowmya Mirza MD> Cosigner Signature (if applicable): CC: Dr. Sowmya Mirza MD; Dr. Dacia Acosta MD~ Signed [facility] Hospital Work Phone: 1(167) 430-367303-10-2024 Discharge summary Author Mica Díaz [facility] December 04, 2023 9:05pm Note Date/Time December 04, 2023 6:1 5pm [facility] Medical Records Department [address] [place] [address] Emergency Department Summary 12/04/23 MR#: [id number] Acct: [id number] Name: CAROLINA HIGHTOWER Rep #:[id number] : 1975 48 From: Emperatriz Craig MD PCP: Dr. Dacia Acosta MD Status:AD M IN Location: [facility] [id number] <Statement entered by Emperatriz Craig MD [...] % (Auto) 62.4 Lymph % (Auto) 23.3 Stevens % (Auto) 10.7 H Eos % (Auto) [...] Sl. Cloudy Urine pH 6.5 Ur Specific Amity 1.015 Urine Protein 30 H Urine Glucose [...] Provider: Dacia Acosta Disposition Disposition: Acute Care [facility] What to do if you have Problems For any increased pain, shortness of breath, bleeding, nausea or vomiting, chestpain, or any unexpected problems, contact your Primary Care Provider. Call [facility] ([phone]) or report to the closest Emergency Room. Call 911 if necessary. 12/04/232033 <Electronically signed by Emperatriz Craig MD> Cosigner Signature (if applicable): 12/04/232104 <Electronically signed by Mica GARCIA> CC: Dr. Dacia Acosta MD ~ Signed [facility] Work Phone: 1(561) 984-796003-10-2024 Discharge summary Author Mica Díaz [facility] December 04, 2023 9:05pm Note Date/Time December 04, 2023 6:1 5pm [facility] Medical Records Department [address] [place] [address] Emergency Department Summary 12/04/23 MR#: [id number] Acct: [id number] Name: CAROLINA HIGHTOWER Rep #:[id number] : 1975 48 From: Emperatriz Craig MD PCP: Dr. Dacia Acosta MD Status:AD M IN [facility] <Statement entered by Emperatriz Craig MD [...] % (Auto) 62.4 Lymph % (Auto) 23.3 Stevens % (Auto) 10.7 H Eos % (Auto) [...] Sl. Cloudy Urine pH 6.5 Ur Specific Amity 1.015 Urine Protein 30 H Urine Glucose [...] Dacia Acosta Disposition Disposition: Acute Care Hospital [facility] What to do if you have Problems For any increased pain, shortness of breath, bleeding, nausea or vomiting, chestpain, or any unexpected problems, contact your Primary Care Provider. Call [facility] ([phone]) or report to the closest Emergency Room. Call 911 if necessary. 12/04/232033 <Electronically signed by Emperatriz Craig MD> Cosigner Signature (if applicable): 12/04/232104 <Electronically signed by Mica GARCIA> CC: Dr. Dacia Acosta MD ~ Signed [facility] Work Phone: 1(895) 135-836103-04-2024 Miscellaneous Notes* Telephone Encounter - Melisa Vick [...] advise, Vanessa Babcock RN documented in this encounterMer[facility]03-02-2024 History of Present illness Narrative* Dacia [...] Pt here today for a 7 day [facility] follow up. Pt admitted into [facility] on 11/18/23 for abdominal pain and [...] year old female who presented to an [facility] emergency department yesterday, November 17, 2023, for further evaluation of abdominal pain and distention. Patient has known cirrhosis. Recently, she has been evaluated multiple times at [facility] for similar symptoms. Paracentesis has been [...] Rocephin tomorrow, patient had paracentesis in [facility] without any significant results, he had paracentesis [...] month Dacia Acosta MD documented in this encounterMercy Health Lor[facility] Hospital03-01-2024 History of Present illness Narrative* Priscilla Del Angel RN - 11/25/2023 11:25 AM EST documented in this encounterMercy Health Lorain Hospital02-29-2024 History of Present illness Narrative* Soco Telles [facility] - 11/24/2023 9:21 AM EST TRANSITION CARE MANAGEMENT (TCM) PHARMACY CONTACT Provider Action/FYI: Unable to reach patient after unsuccessful outreach attempt(s). TCM medication reconciliation incomplete at this time. VM full Patient unable to be reached after unsuccessful outreach attempt(s). No further attempts to contactpatient will be made. SUMMARY: -Pt discharged from [facility] on 11/23/23. -Medication review not done [...] she has been evaluated multiple times at [facility] for similar symptoms. Paracentesis has been [...] Rocephin tomorrow, patient had paracentesis in [facility] without any significant results, he had paracentesis [...] as instructed every 4 hours as needed. [facility] [place] ascorbic acid, vitamin C, (VITAMIN C) 500 mg tablet Take 1 tablet by mouth once daily. [facility] [place] Discontinued: 11/17/2023 7:36 PM NO RECENT DISPENSES Discontinued: 11/17/2023 7:36 PM NO RECENT DISPENSES Discontinued: 11/17/2023 7:36 PM NO RECENT DISPENSES Discontinued: 11/17/2023 7:36 PM NO RECENT DISPENSES ferrous sulfate 325 mg (65 mg iron) tablet Take 1 tablet by mouth once daily. [facility] [place] furosemide (LASIX) 20 mg tablet Take 1 tablet by mouth once daily. gabapentin (NEURONTIN) 100 mg capsule Take 1 capsule by mouth twice daily for 180 days. hydrOXYzine HCl (ATARAX) 25 mg tablet Take 1 tablet by mouth every 8 hours as needed. [facility] [place] Per AVS "Patient will also be started [...] 1 tablet once daily for 3 days. [facility] [place] #18 tabs spironolactone (ALDACTONE) 50 mg tablet Take 1 tablet by mouth once daily. [facility] [place] Potassium Date Value Ref Range Status 11/23/2023 4.2 3.5 - 5.1 mmol/L Final Discontinued: 11/17/2023 7:37 PM NO RECENT DISPENSES Discontinued: 11/17/2023 7:37 PM NO RECENT DISPENSES Preferred pharmacy: [facility] [place] [address] [address] [facility] [phone] [address] [facility] [address] [facility] - [address] [place] [address] - [address] [phone] [address] [facility] [address] Estimated Creatinine Clearance: 85.8 mL/min (based on [...] 24, 2023 9:21 AM documented in this encounterMercy Health Lorain Hospital02-28-2024 NoteHNO ID: [id number] Author: AR PIERCE RN Service: Care Management [...] list of mental health facilities in the [place] area. Denies any other needs. Case closed. SIGNATURE: Ar Pierce RN PATIENT NAME: Carolina Hightower DATE: November 23, 2023 TIME: 2:11 PM CONTACT #: [phone] Harbor Hospital02-27-2024 NoteHNO ID: [id number] Author: AMOR HERNANDEZ MD Service: Hospital Medicine [...] sepsis from SBP, patient had paracentesis at [facility] ER several days ago, today abdominal [...] APTT 45.7* INR 2.3* CARDIAC: Recent Labs 11/17/23 2008 PBNP 83 DATA: Diagnostic tests reviewed for today's visit: Most recent labs and imaging results. Most recent EKG Urine Culture: Positive Micro-30 Days No results found for the last 720 hours. Blood Culture: Positive Micro-30 Days No results found for the last 720 hours. Medication and Non-Pharmacologic VTE Prophylaxis/Anticoagulants 11/18/231744 vte current anticoag therapy (az,oh) 11/18/231744 activity - mobilize patient (az,tx) VTE Prophylaxis: VTE prophylaxis appropriate Assesment: Suspected [...] was reviewed. Patient sti (more content not included)...[facility]02-27-2024 NoteHNO ID: [id number] Author: AR PIERCE RN Service: Care Management [...] Home Advance Directives Current Advance Directive: None Supervisor Pastry Attempted to Assist with AD Completion: Yes [...] Be able to go home, General wellness [place] Explained: [place] Given: No Reason Not Given: [...] abdominal pain and distention.Was a transfer from [facility], went to the ICU after a rapid response. Discharge plan to return to home, lives with significant other. They rent a room off of some friends, has bathroom and kitchen privileges. Neither of them drive, usually walks, uses insurance for doctor visits, or friends transport. She quit taking her medications 6 months ago along with mental health services at [facility]. She would like information on services in [facility] for mental health. She states she can use her insurance for the appointments. Will give her the information. She is unsure she will need transportation to home. Will continue to follow. SIGNATURE: Ar Pierce RN PATIENT NAME: Carolina Hightower DATE: November 22, 2023 TIME: 7:18 AM CONTACT #: [phone] Harbor Hospital02-26-2024 NoteHNO ID: [id number] Author: AMOR HERNANDEZ MD Service: Hospital Medicine [...] sepsis from SBP, patient had paracentesis at [facility] ER several days ago, today complaining [...] VTE Prophylaxis/Anticoagulants 11/18/231744 vte current anticoag therapy (az,tx) 11/18/231744 activity - mobilize patient ([place], [place]) VTE Prophylaxis: VTE prophylaxis appropriate Assesment: [...] taper down steroids, contin (more content not included)...[facility] 11-20-2023 NoteHNO ID: [id number] Author: MARIAH STEWART MD Service: Critical Care Author Type: Physician Type: Progress Notes Filed: 11/20/2023 15:28 Note Text: [facility] STAFF PHYSICIAN NOTE OF PERSONAL INVOLVEMENT [...] Stewart MD [facility] DATE of SERVICE: 11/20/2023[facility]02-[facility]24 NoteHNO ID: [id number] Author: MARIAH TRAVIS APRN.MONUMENTAL STONEMASON Service: Critical Care Author Type: Nurse Practitioner Type: Progress Notes Filed: 11/20/2023 10:02 Note Text: PULMONARY/CRITICAL CARE INTENSIVE MEDICAL/SURGICAL CARE UNIT PROGRESS NOTE Patient Name: Carolina Hightower Account #: Data Unavailable Admission Date: 11/18/2023 Date of Evaluation: 11/20/2023 Time of Evaluation: 9:44 AM SUBJECTIVE Transferred from [place] for paracentesis. Treated for COPD exacerbation with hypercapnia. Improved today, mentation improved. Complaining of headache. Plan for paracentesis tomorrow. Tolerating a diet, no nausea vomiting diarrhea. VITALS 11/20/23 0700 11/20/23 0800 11/20/23 0827 11/20/23 0900 BP: 113/55 120/70 120/70 128/76 Pulse: 66 82 66 (!) 59 Resp: Temp: 36.6 ?C (97.9 ?F) TempSrc: Oral [...] CREAT 0.95 0.68 0.72 CHEM: Recent Labs 11/20/23 0357 11/19/23 0349 11/17/232007 ALB 2.4* 1.9* 2.6* TPROT 7.0 6.8 7.8 CA 8.9 8.5 8.6 MG 1.9 1.5* 1.6* HEPATIC: Recent Labs 11/20/23 0357 11/19/23 0349 11/17/232007 ALKPHOS 130* 158* 245* ALT 32 31 [...] and hypercapnia Toxic metabolic (more content not included)...[facility]02-24-2024 NoteHNO ID: [id number] Author: MARIAH STEWART MD Service: Critical Care Author Type: Physician Type: Progress Notes Filed: 11/19/2023 13:58 Note Text: [facility] STAFF PHYSICIAN NOTE OF PERSONAL INVOLVEMENT [...] Stewart MD [facility] DATE of SERVICE: 11/19/2023[facility]02-[facility]-2024 NoteHNO ID: [id number] Author: NILA MOLINA MD Service: Hospital Medicine [...] and diffuse tenderness. Patient was transferred to [facility] for further care. At the time [...] ending 11/19/23 0702 Serum creatinine: 0.68 mg/dL 11/19/23348 Estimated creatinine [...] Acute hypoxemic respiratory failu (more content not included)...[facility]02-24-2024 NoteHNO ID: [id number] Author: JONATHAN RODAS, RN Service: Nursing Author Type: Registered Nurse Type: Nursing Progress Note Filed: 11/19/2023 07:36 Note Text: Rapid response called at this time. See rapid response flow sheet and provider note.[facility]02-16-2024 Miscellaneous Notes* Telephone Encounter - Melisa [...] belly pain". Reports she has been to [facility] ER 3 times in last week. [...] Provider. Patient unable to confirm any upcoming [facility] appt as of now. This nurse attempted to contact [facility] x 3-no answer at this time and voicemail asks to leave message and they will return call within 24 hours. Pt asking if she must go back to [facility] ER now or can she try to come to her ER F/U appt with Dr. Bell this afternoon? Thank you. documented in this encounterMercy Health Lorain Hospital02-12-2024 Miscellaneous Notes* Telephone Encounter - Dacia Acosta MD - 11/07/2023 5:58 PM EST Noted Dacia Acosta MD * Telephone Encounter - Jesi Jason LPN - 11/07/2023 4:21 PM EST Pt calls to report she went to [facility] ER today for abdominal pain and [...] no Jesi Jason LPN documented in this encounterMercy Health Lor[facility] Hospital02-12-2024 Discharge summary Author Yimi Hutchinson [facility] November 07, 2023 10:34am Note Date/Time November 07, 2023 7:34am [facility] Medical Records Department [address] [place] [address] Emergency Department Summary 11/07/23 MR#: [id number] Acct: [id number] Name: CAROLINA HIGHTOWER Rep #:[id number] : [...] Discharge home This note was generated with [employer] dictation software. It may contain incorrectwords, spelling, [...] % (Auto) 62.0 Lymph % (Auto) 23.6 Stevens % (Auto) 9.6 Eos % (Auto) 3.5 [...] Sl. Cloudy Urine pH 6.0 Ur Specific Amity 1.020 Urine Protein 30 H Urine Glucose [...] Please follow with your primary care physician, cyber intel planner for further outpatient evaluation and management. Disposition Disposition: Home, Self Care What to do if you have Problems For any increased pain, shortness of breath, bleeding, nausea or vomiting, chestpain, or any unexpected problems, contact your Primary Care Provider. Call [facility] ([phone]) or report to the closest Emergency Room. Call 911 if necessary. 11/07/23 1034 <Electronically signed by Yimi Hutchinson DO> Cosigner Signature (if applicable): CC: Dr. Dacia Acosta MD ~ Signed [facility] Work Phone: 1(196) 763-978102-10-2024 Discharge summary Author Jake Harding [facility] November 05, 2023 9:27pm Note Date/Time November 05, 2023 7:33pm [facility] Medical Records Department [address] [place] [address] Emergency Department Summary 11/05/23 MR#: [id number] Acct: [id number] Name: CAROLINA HIGHTOWER Rep #:[id number] : [...] I encouraged her to call her gastroentero postal transportation clerk Tuesday for follow-up and recheck. Lab Data [...] % (Auto) 57.9 Lymph % (Auto) 29.7 Stevens % (Auto) 8.4 Eos % (Auto) 3.2 [...] Sl. Cloudy Urine pH 6.0 Ur Specific Amity 1.025 Urine Protein 30 H Urine Glucose [...] Chief Complaint: Abd Pain ED Provider: Jake aHrding Dx/Rx/DC Orders Clinical Impression: Ascites, Variable compliance [...] your Primary Care Provider. Call [facility] ([phone]) or report to the closest Emergency Room. Call 911 if necessary. 11/05/232126 <Electronically signed by Jake Harding MD> Cosigner Signature (if applicable): CC: Dr. Dacia Acosta MD ~ Signed [facility] Work Phone: 1(769) 646-384602-08-2024 Miscellaneous Notes* Telephone Encounter - Mary Orozco [...] - 11/03/2023 3:03 PM EST I sent Zoarchie to help with the nausea. Would recommend [...] advise, Mary Orozco RN documented in this encounterMercy Health Lorain Hospital02-06-2024 History of Present illness Narrative* Latasha William PA-C - 11/01/2023 4:24 PM EST Images from the original note were not included. This note was created using Mobius Microsystemsriter. Subjective Carolina Hightower is a 48 year [...] PAST SURGICAL HISTORY OF 2018 liver bx [facility] FAMILY HISTORY Problem Relation Age of [...] follow-up with dermatology and given referral to [facility] and [facility]. Patient voiced understanding. Feeling great complaints medicated not sure I know the vaginal I canceled we are transportation issues like - CONSULT TO DERMATOLOGY Latasha William PA-C documented in this encounterMercy Health Lorain Hospital02-06-2024 Instructions* Patient Instructions* Latasha William PA-C - 11/01/2023 4:05 PM EST [facility] [address], [place] [address] documented in this encounterMercy Health Lorain Hospital01-13-2024 Discharge summary Author Oscar Pantoja [facility] 2023 9:39am Note Date/Time 2023 9 :37am [facility] Medical Records Department [address] [place] [address] Discharge Summary 10/08/23 0937 MR#: [id number] Acct: [id number] Name: CAROLINA HIGHTOWER Rep #:[id number] : 1975 48 From: Oscar Pantoja MD PCP: Dr. Dacia Acosta MD Status:AD M IN [id number] Prov[facility] Date of Admission: 10/07/23 Date of [...] % (Auto) 56.5, Lymph % (Auto) 27.9, Stevens %(Auto) 11.0 H, Eos % (Auto) 3.2, [...] Self Care Charges/Coding Visit Charges Inpatient E&M: 47087 Disch Hosp >30min 10/08/23 0939 <Electronically signed by Ocsar Pantoja MD> Cosigner Signature (if applicable): CC: Dr. Oscar Pantoja MD; Dr. Dacia Acosta MD~ Signed [facility] Work Phone: 1(691) 410-661101-13-2024 Progress note Author Oscar Pantoja [facility] 2023 9:37am Note Date/Time 2023 7 :49am [facility] Medical Records Department [address] [place] [address] Progress Note - Hospitalist 10/08/23 0748 MR#: [id number] Acct: [id number] Name: KATJACAROLINAAmbreen GARCIA Rep #:[id number] : 1975 48 From: Oscar Pantoja MD PCP: Dr. Dacia Acosta MD Status:AD M IN Location: MS[facility] [id number] Reason for Visit Reason for Visit: Diagnoses [...] % (Auto) 56.5, Lymph % (Auto) 27.9, Stevens %(Auto) 11.0 H, Eos % (Auto) 3.2, [...] documentation, 35Minutes Charges/Coding Visit Charges Inpatient E&M: 00245 Subs Hosp L2 10/08/23 0937 <Electronically signed by Oscar Pantoja MD> Cosigner Signature (if applicable): CC: ~ Signed [facility] Work Phone: 1(264) 460-219901-12-2024 Progress note Author Oscar Pantoja [facility] October 07, 2023 8:04am Note Date/Time October 07, 2023 8 :04am [facility] Medical Records Department [address] [place] [address] Progress Note - Hospitalist 10/07/23 0757 MR#: [id number] Acct: [id number] Name: CAROLINA HIGHTOWER Rep #:[id number] : 1975 47 From: Oscar Pantoja MD PCP: Dr. Dacia Acosta MD Status:AD M MARTHA Location: MS3 [id number] Reason for Visit Reason for Visit: Diagnoses [...] % (Auto) 64.6, Lymph % (Auto) 23.6, Stevens % (Auto) 8.2, Eos % (Auto) 2.5, Baso % (Auto) 0.8, Absolute Neuts (auto) 4.6, Absolute Lymphs (auto) 1.70, Nucleated RBC % 0, Platelet Estimate MOD DEC, RBC Morphology N CHROM, Hypochromasia 1+, Anisocytosis 1+, Microcytosis1+, Ovalocytes RARE, Sodium 140, Potassium 3.3 L, Chloride 110 H, Carbon Dpotbzz22.0, Anion Gap 5, BUN 6 L, Creatinine [...] % (Auto) 53.9, Lymph % (Auto) 31.1, Stevens %(Auto) 10.9 H, Eos % (Auto) 3.2, [...] documentation, 50Minutes Charges/Coding Visit Charges Inpatient E&M: 71644 Subs Hosp L3 10/07/23 0804 <Electronically signed by Oscar Pantoja MD> Cosigner Signature (if applicable): CC: ~ Signed [facility] Work Phone: 1(871) 313-349901-12-2024 History and physical note Author Elena [facility] October 07, 2023 2:09am Note Date/Time October 06, 2023 1 0:13pm [facility] Medical Records Department [address] [place] [address] History & Physical Exam 10/06/23 2211 MR#: [id number] Acct: [id number] Name: CAROLINA HIGHTOWER Rep #:[id number] : 1975 47 From: Elena Hoff MD PCP: Dr. Dacia Acosta MD Status:[facility] Location: [place] [address] HPI - General General Date of Admission: [...] in the ED were BP of 105/76, FL of 66, RR of 16 and temp [...] likely due to ascites from liver cirrhosis [facility] Medical History Acute insomnia Anemia Anxiety and [...] no sensory deficits noted Coordination / Balance: wgdmoz-qt-pqit test normal Motor Exam: strength 5/5 throughout [...] % (Auto) 64.6, Lymph % (Auto) 23.6, Stevens % (Auto) 8.2, Eos % (Auto) 2.5, Baso % (Auto) 0.8, Absolute Neuts (auto) 4.6, Absolute Lymphs (auto) 1.70, Nucleated RBC % 0, Platelet Estimate MOD DEC, RBC Morphology N CHROM, Hypochromasia 1+, Anisocytosis 1+, Microcytosis1+, Ovalocytes RARE, Sodium 140, Potassium 3.3 L, Chloride 110 H, Carbon Bmtskur32.0, Anion Gap 5, BUN 6 L, Creatinine [...] 20:37 EST Reading Location ID and State: [address] [place] [address] , Service support , Assessment & Plan [...] but occasionally and last drink was at [place] and . Counseled to quit. Will hold off on starting alcohol withdrawal protocol now as there are no signs of withdrawal. * DVT prophylaxis: SCDs Charges/Coding Visit Charges Inpatient E&M: 31824 Init Hosp L3 10/07/23 0209 <Electronically signed by Elena Hoff MD> Cosigner Signature (if applicable): CC: Dr. Dacia Acosta MD; Dr. Elena Hoff MD~ Signed [facility] Work Phone: 1(966) 994-937501-12-2024 Discharge summary Author Darius Rosales [facility] October 06, 2023 10:16pm Note Date/Time October 06, 2023 7 :28pm [facility] Medical Records Department [address] [place] [address] Emergency Department Summary 10/06/23 MR#: [id number] Acct: [id number] Name: CAROLINA HIGHTOWER Rep #:[id number] : [...] % (Auto) 64.6 Lymph % (Auto) 23.6 Stevens % (Auto) 8.2 Eos % (Auto) 2.5 [...] problems, contact your Primary Care Provider. Call [facility] [place] [facility] ([phone]) or report to the closest Emergency Room. Call 911 if necessary. 10/06/23 2216 <Electronically signed by Darius Rosales DO> Cosigner Signature (if applicable): CC: Dr. Dacia Acosta MD ~ Signed [facility] Work Phone: 1(811) 527-670312-26-2023 Telephone encounter Note* Telephone Encounter - Emperatriz Chacon LPN - 09/20/2023 9:58 AM EST Unable to contact patient X2 [facility] CenterAfrspy68-56-3080 Miscellaneous Notes* Telephone Encounter - Emperatriz Chacon LPN - 09/20/2023 9:58 AM EST Unable to contact patient X2 * Telephone Encounter - Emperatriz Chacon LPN - 09/16/2023 10:04 AM EST S: Patient admitted to: [facility] 09/09/23 B: Discharged on : 09/15/23 A: Hospital follow up call initiated to discuss any medication changes, follow up appointments and discharge instructions: Small bowel obstruction R: No contact x 1 at : [phone] documented in this [facility]12-22-2023 Telephone encounter Note* Telephone Encounter - Emperatriz Chacon LPN - 09/16/2023 10:04 AM EST S: Patient admitted to: [facility] 09/09/23 B: Discharged on : 09/15/23 A: Hospital follow up call initiated to discuss any medication changes, follow up appointments and discharge instructions: Small bowel obstruction R: No contact x 1 at : [phone] [facility] CenterNwlxmp08-30-1724 Note* Care Coordination - MIRIAM Goldsmith - 09/15/2023 4:00 PM EST Social work follow up on discharge. SW notified by patients bedside RN patient needs assist with transport to home. SW spoke to patient to confirm address on file is correct. She reports she typically will use her [facility] johnny for transport and uses their uber/lyft service. SW placed call to [facility] transport [phone]. Transport arranged for filler picker at [address] [place] [address] Street between 4:12-6:12pm.They will call the unit 15 minutes prior to their arrival . Ref # [id number]. social worker clinical updated patients bedside RN, who will update the patient. [facility] [id number] Note* Care Coordination - MIRIAM Goldsmith - 09/15/2023 4:00 PM EST Social work follow up on discharge. SHELL notified by patients bedside RN patient needs assist with transport to home. SHELL spoke to patient to confirm address on file is correct. She reports she typically will use her [employer] johnny for transport and uses their uber/lyft service. SHELL placed call to [facility] transport [phone]. Transport arranged for filler picker at [address] [facility] between 4:12-6:12pm.They will call the unit 15 minutes prior to their arrival . Ref # [id number]. social worker clinical updated patients bedside RN, who will update the patient. [facility] CenterQtopjk22-04-6857 Miscellaneous Notes* Care Coordination - MIRIAM Goldsmith - 09/15/2023 4:00 PM EST Social work follow up on discharge. SHELL notified by patients bedside RN patient needs assist with transport to home. SHELL spoke to patient to confirm address on file is correct. She reports she typically will use her [facility] for transport and uses their uber/lyft service. SW placed call to [facility] transport [phone]. Transport arranged for filler picker at [address] [place] [address] between 4:12-6:12pm.They will call the unit 15 minutes prior to their arrival . Ref # [id number]. social worker clinical updated patients bedside RN, who will update [...] Limits Permission given to speak with patient footwear sales representative/caregiver as indicated: Yes Confirmation of Payer with patient/family: Yes Payer Name: [employer] Medicaid [place]: No Confirmation of Primary Care Physician: Confirmed PCP Name: Dr. Drake- ELENA Seen in last 2 years?: Yes Primary [...] allows. TCC will follow. documented in this [facility]12-21-2023 NoteDischarge Summary Carolina Hightower : 1975 [...] SIGNIFICANT DIAGNOSTIC STUDIES: US guided abdominal paracentesis [[id number]] Collected: 09/14/23 113 Order Status: Completed Updated: 09/14/231136 Narrative: Patient Name: CAROLINA HIGHTOWER : 1975 [id number] Exam Date/Time: 09/14/2023 09:36 Procedure: US GUIDED [...] 11:36 AM EST US guided abdominal paracentesis [[id number]] Collected: 09/10/23853 Order Status: Completed Updated: 09/10/23854 Narrative: Patient Name: CAROLINA HIGHTOWER : 1975 [id number] Exam Date/Time: 09/10/2023 08:29 Proced (more content not included)...[facility]12-21-2023 History of Present illness Narrative* Latha Lester [...] (S/p paracentesis 09/14 with 1.7L removed) Ascites Content Curator Strength: Not Performed Nutrition Assessment: 47yo F [...] On: Kcal/kg Weight Used for Energy Requirements: [place] Weight for Energy Calculation (kg): 50 kg Total Energy Requirements (kcals/day): 27-32 kcal/kg = 3872-6061 kcal/day Weight Used for Protein Requirements: [place] Weight in Kg Used for Protein Requirements: [...] lb) (stated) % Weight Change (Calculated): 5 [place] Body Weight (lbs) (Calculated): 110 lbs [place] Body Weight (Kg) (Calculated): 50 kg % [place] Body Weight (Calculated): 190.8 % BMI (kg/m2) [...] Continue current diet Latha Lester RD Contact: *[phone] * Saima Lim MD - 09/15/2023 8:21 [...] 1,000 mL enema, 1 enema, Rectal, TID catgtiud-kuwjuzhojm-dcwppclzh, , Topical, TID pantoprazole (ProtoNix) 40 mg [...] Saima Lim MD Division of Hospitalist Medicine [facility] * Saima Lim MD - 09/14/2023 [...] 09/14/23 0958 LABS: CBC: Recent Labs 09/12/23 01109/13/23 01209/14/23 0613 WBC 5.1 4.4 4.6 RBC 3.50* 3.60* 3.45* HGB 7.9* 8.1* 7.9* HCT 25.0* 26.1* 24.9* MCV 71.5* 72.4* 72.1* RDW 21.1* 21.1* 21.3* PLT 58* 56* 59* BMP: Recent Labs 09/12/23 01109/13/23 01209/14/23 0206 NA 136 137 136 K 3.9 [...] 1,000 mL enema, 1 enema, Rectal, TID ycedogvd-vpeqeavkch-hautljpae, , Topical, TID pantoprazole (ProtoNix) 40 mg [...] Saima Lim MD Division of Hospitalist Medicine [facility] * Saima Lim MD - 09/13/2023 9:01 [...] Saima Lim MD Division of Hospitalist Medicine [facility] * Kate Harley MD - 09/12/2023 [...] This note may have been dictated using PEVESA Practice Edition 2.6 and/or [employer] Voice Recognition Feature. The document was proofread; however, unrecognized voice recognition law researcher errors may be present. Associated attestation - [...] of Trauma Department of Surgery [facility] ~~~~~~~~~~~~~~~~~~~~~~~~~~~~~~~~~~~~~~~~~~~~~~~~~~~~~~~~~~~~~ This note may have been dictated using [employer] Medical Practice Edition 2.6 and/or [employer]oQuest Voice Recognition Feature. The document was proofread; however, unrecognized voice recognition law researcher errors may be present. * Kaylin Camarillo, [facility] - 09/12/2023 4:15 PM EST [facility] ADMISSION MEDICATION RECONCILIATION Date: 09/12/23 [facility] Patient Name: Carolina Hightower Allergies: [...] on last fill dates from patient's [facility]. Home medications to restart if there [...] PM 09/12/2023 4:18 PM Kaylin Camarillo, PharmMelodie * Latha Lester RD - [...] muscle mass loss Fluid Accumulation: Mild Ascites Content Curator Strength: Not Performed Nutrition Assessment: 47yo F [...] On: Kcal/kg Weight Used for Energy Requirements: [place] Weight for Energy Calculation (kg): 50 kg Total Energy Requirements (kcals/day): 27-32 kcal/kg = 1590-3797 kcal/day Weight Used for Protein Requirements: [place] Weight in Kg Used for Protein Requirements: [...] 209#,05/26/22 198#) % Weight Change (Calculated): 2.8 [place] Body Weight (lbs) (Calculated): 110 lbs [place] Body Weight (Kg) (Calculated): 50 kg % [place] Body Weight (Calculated): 186.9 % BMI (kg/m2) [...] soon to determine Latha Lester RD Contact: *[phone] * Saima Lim MD - 09/12/2023 9:04 AM EST Images from the original note were not included. Hospitalist Progress Note 09/12/2023 Subjective: Admit Date: 09/09/2023 PCP: No primary care provider on file. Room#: W726/W72 A Brief Hospital course: Patient is 47-year-old [...] Lim MD Division of Hospitalist Medicine [facility] * Judah Valentine MD - 09/11/2023 1:44 PM EST Images from the original note were not included. Hospitalist Progress Note 09/11/2023 Subjective: Admit Date: 09/09/2023 PCP: No primary care provider on file. Room#: W7-726/W7-726 A Interval History: Patient is 47-year-old with history of cirrhosis, GERD, substance [facility] of [facility] Patient was [...] Judah Valentine MD Division of Hospitalist Medicine [facility] * Marielos Stewart - 09/11/2023 12:24 [...] continue to follow closely. documented in this [facility]12-21-2023 Hospital course Narrative* Saima Lim MD [...] SIGNIFICANT DIAGNOSTIC STUDIES: US guided abdominal paracentesis [[id number]] Collected: 09/14/23 4725 Order Status: Completed Updated: 09/14/23 1137 Narrative: Patient Name: CAROLINA HIGHTOWER : 1975 [id number] Exam Date/Time: 09/14/2023 09:36 Procedure: US GUIDED [...] 11:36 AM EST US guided abdominal paracentesis [[id number]] Collected: 09/10/23 0854 Order Status: Completed Updated: 09/10/2355 Narrative: Patient Name: CAROLINA HIGHTOWER : 1975 [...] AM EST CT abdomen pelvis w contrast [[id number]] Collected: 09/09/232018 Order Status: Completed Updated: 09/09/232028 [...] 8:28 PM EST XR chest 1 view [[id number]] Collected: 09/09/231846 Order Status: Completed Updated: 09/09/231848 Narrative: Patient Name: CAROLINA HIGHTOWER : 1975 [id number] Exam Date/Time: 09/09/2023 18:44 Procedure: XR CHEST [...] Your Medications These medications were sent to [facility] [place] [address] [place] [address] desvenlafaxine 100 MG 24 hr tablet doxepin 10 MG capsule traZODone 100 MG tablet DIET: Adult diet Regular ACTIVITY: No restriction. COMPLEXITY OF FOLLOW UP: [] Moderate Complexity: follow up within 7-14 calendar days (80647) [] Severe Complexity: follow up within 7 calendar days (15193) FOLLOW UP TESTING, PENDING RESULTS OR REFERRALS AT TRANSITIONAL CARE VISIT: [] Yes [] No PENDING STUDIES: DISPOSITION: Home FACILITY/HOME CARE AGENCY NAME: Follow up with Cristiana Strauss MD [address] [place] [address] [address] [facility] [phone] Schedule an appointment as soon as possible [...] MD 09/15/2023, 12:04 PM documented in this [facility]12-21-2023 NoteHospitalist Progress Note 09/15/2023 Subjective: Admit Date: 09/09/2023 PCP: No primary care provider on file. Room#: -726/724 A Brief Hospital course: Patient is 47-year-old [...] 1,000 mL enema, 1 enema, Rectal, TID zwolnuzn-ffxufrqntz-jseyfcski, , Topical, TID pantoprazole (ProtoNix) 40 mg [...] MD Raphael Division of Hospitalist Medicine [facility]12-20-2023 Note* Care Coordination - Jimi Jackson RN - 09/14/2023 2:54 PM EST Chart reviewed. Patient had paracentesis today with 1700 ml removed. Surgery is following patient for likely ileus -->no plans for intervention and recommend ADAT. Current discharge plan is home no needs once medically stable. [facility] CenterSjbcif84-59-6861 Note* Care Coordination - Jimi Jackson RN - 09/14/2023 2:54 PM EST Chart reviewed. Patient had paracentesis today with 1700 ml removed. Surgery is following patient for likely ileus -->no plans for intervention and recommend ADAT. Current discharge plan is home no needs once medically stable. [facility] Ykqqwi16-84-7520 NoteHospitalist Progress Note 09/14/2023 Subjective: Admit Date: [...] 1,000 mL enema, 1 enema, Rectal, TID usclghrf-ettehnggwy-ftllttwcv, , Topical, TID pantoprazole (ProtoNix) 40 mg [...] MD Raphael Division of Hospitalist Medicine [facility]12-20-2023 Note* Perioperative Nursing Note - Marimar Velasquez RN - 09/14/2023 9:19 AM EST Patient to ultrasound department for paracentesis. History, medications and allergies reviewed. Samuel Pastor PA-C in to speak with patient. Informed consent obtained. 1700 mL clear yellow colored fluid removed. Patient tolerated procedure well. Bandaid applied to site. Patient discharged to [facility]12-20-2023 Note* Perioperative Nursing Note - Marimar Velasquez RN - 09/14/2023 9:19 AM EST Patient to ultrasound department for paracentesis. History, medications and allergies reviewed. Samuel Pastor PA-C in to speak with patient. Informed consent obtained. 1700 mL clear yellow colored fluid removed. Patient tolerated procedure well. Bandaid applied to site. Patient discharged to [facility]12-19-2023 NoteHospitalist Progress Note 09/13/2023 Subjective: Admit [...] MD Raphael Division of Hospitalist Medicine [facility]12-19-2023 NoteCare Management Progress Note Patient remains on [...] of Stay (Days): 4 GMLOS: No GMLOS [facility]12-19-2023 Note* Care Coordination - Meg Herrmann RN [...] Stay (Days): 4 GMLOS: No GMLOS Documented [facility] [id number] Note* Care Coordination - Meg Herrmann RN [...] Stay (Days): 4 GMLOS: No GMLOS Documented [facility] [id number] NoteHospitalist Progress Note 09/12/2023 Subjective: Admit Date: 09/09/2023 PCP: No primary care provider on file. Room#: W726/W72 A Brief Hospital course: Patient is 47-year-old [...] Saima Lim MD Division of Hospitalist Medicine [facility]12-18-2023 Note* Care Coordination - Meg Herrmann RN - 09/12/2023 10:19 AM EST Care Managment Initial Assessment Date: 09/12/2023 Patient Name: Carolina Hightower : 1975 Patient Information Source of Information: Patient Cognition/Language: WFL - Within Functional Limits Permission given to speak with patient footwear sales representative/caregiver as indicated: Yes Confirmation of Payer with patient/family: Yes Payer Name: [employer] Medicaid [place]: No Confirmation of Primary Care Physician: Confirmed [...] home with Significant Other. Meg Herrmann RN [facility]12-18-2023 Note* Care Coordination - Meg Herrmann RN - 09/12/2023 10:19 AM EST Care Managment Initial Assessment Date: 09/12/2023 Patient Name: Carolina Hightower : 1975 Patient Information Source of Information: Patient Cognition/Language: WFL - Within Functional Limits Permission given to speak with patient footwear sales representative/caregiver as indicated: Yes Confirmation of [...] Discharge plan home with Significant Other. Meg Herrmann, RN [facility]12-17-2023 Note* Care Coordination - Kaylin Rivera RN - 09/11/2023 3:56 PM EST Attempted to complete Initial assessment over the phone. Patient currently unavailable/off unit. Will try again as time allows. TCC will follow. [facility]12-17-2023 Note* Care Coordination - Kaylin Rivera RN - 09/11/2023 3:56 PM EST Attempted to complete Initial assessment over the phone. Patient currently unavailable/off unit. Will try again as time allows. TCC will follow. [place] [address]-17-2023 NoteHospitalist Progress Note 09/11/2023 Subjective: Admit Date: [...] Judah Valentine MD Division of Hospitalist Medicine [address]17-2023 NoteADDICTION MEDICINE CONSULTATION H&P Patient: Carolina [...] Sitting Pulse: 83 [phone] 69 Resp: Temp: 36.6 ?C (97.9 ?F) 36.4 ?C (97.6 ?F) TempSrc: Temporal Temporal SpO2: 98% 98% Physical Exam Vi (more content not included)...[facility]12-17-2023 Hospital Discharge instructions* Discharge Instructions* Jozef Cordova MD - 09/11/2023 11:48 AM EST Images from the original note were not included. [facility] PROGRAMS __ Addiction Medicine Intensive Outpatient Program [place] ([facility]): [phone] [place]: [phone] [place]: [phone] Behavioral Health Intensive Outpatient Program [place] ([facility]): [phone] [place]: [phone] First Step [place] ([facility]): [phone] [place]: [phone] Partial Hospitalization Program [place] ([facility]): [phone] Traumatic Stress Center [place] ([facility]): [phone] Vivitrol Clinic [place] ([facility]): [phone] Alcoholics Anonymous Meetings [email or web address] [facility] [address] [place] [address], [facility] [address] [phone] * Additional Instructions* Saima Lim MD - 09/15/2023 12:01 PM EST F/U with PCP, GI, Addiction Medicine documented in this [facility]12-17-2023 Consult note* Jozef Cordova MD - [...] 09/10/2023 Patient Name: CAROLINA HIGHTOWER : 1975 [id number] Exam Date/Time: 09/10/2023 08:29 Procedure: US GUIDED [...] 09/09/2023 Patient Name: CAROLINA HIGHTOWER : 1975 [facility]#: [id number] Exam Date/Time: 09/09/2023 20:11 Procedure: CT ABDOMEN [...] 09/09/2023 Patient Name: CAROLINA HIGHTOWER : 1975 [facility]#: [id number] Exam Date/Time: 09/09/2023 18:44 Procedure: XR CHEST [...] 455 ms QTC Interval 501 ms P [place] 55 degrees QRS [place] -7 degrees T Wave [place] 28 degrees FL Interval 157 ms CBC auto differential Collection [...] clinical information on the day of visit. [facility]12-17-2023 Consult note* Jozef Cordova MD - 09/11/2023 11:[facility] IP CONSULT TO ADDICTION MEDICINE [...] 09/09/2023 Patient Name: CAROLINA HIGHTOWER : 1975 [id number] Exam Date/Time: 09/09/2023 18:44 Procedure: XR CHEST [...] 455 ms QTC Interval 501 ms P [place] 55 degrees QRS [place] -7 degrees T [place] 28 degrees FL Interval 157 ms CBC auto differential Collection [...] the day of visit. documented in this [facility]12-17-2023 Nurse Note* Jose Alejandro Nava RN - 09/11/2023 9:14 AM EST Pt was found wandering the hospital by security, confused. Pt brought back by security and she saidshe was going outside to smoke. She was very upset that she could not have a smoke. Pt threatened to punch someone in the face. Pt is confused. [facility] CenterOxgfqh04-89-0395 Nurse Note* Jose Alejandro Nava RN - 09/11/2023 9:14 AM EST Pt was found wandering the hospital by security, confused. Pt brought back by security and she saidshe was going outside to smoke. She was very upset that she could not have a smoke. Pt threatened to punch someone in the face. Pt is confused. documented in this [facility]12-16-2023 NoteAttending History and Physical Admit Date: [...] last 72 hours. CARDIAC ENZYMES: Recent Labs 09/09/23184709/09/235 09/10/23 0105 TROPONINI <0.012 <0.012 <0.012 Procalcitonin: No results found for: "PROCAL" Urine Culture: No results found for this or any previous visit. COVID-19 PCR: No results for input(s): "COVID19" in the last 72 hours. I revie (more content not included)...[facility]12-16-2023 History and physical note* Cindi Salas MD [...] MD Division of Hospitalist Medicine Inpatient Medical Services/[facility] [employer] Work Phone: [phone] 819-393212-16-2023 History and physical note* Cindi Salas MD [...] Behavior is cooperative. DATA: CBC: Recent Labs 09/09/238 WBC 9.4 RBC 4.56 HGB 10.4* HCT [...] MD Division of Hospitalist Medicine Inpatient Medical Services/[facility] documented in this [facility]12-16-2023 Emergency department Note* Laura Antony RN - 09/10/2023 5:00 AM EST Report given to 7W at this time. Transport en route. Laura Antony RN 09/10/23 0501 [facility] CenterLxlasr34-42-3047 Emergency department Note* Laura Antony RN - 09/10/2023 5:00 AM EST Report given to 7W at this time. Transport en route. Laura Antony RN 09/10/23 0503 * [facility] - 09/10/2023 4:47 AM EST They are here now to transport the patient to [facility] 09/10/23 0447 * [facility] - 09/10/2023 4:32 AM EST [facility] ETA 0430 RN will call report in a few :) [facility] 09/10/23 0432 * JOSE Collins - 09/09/2023 [...] Culture. Procedure Abnormality Status --------- ------ Complete Urinalysis[[id number]] Abnormal Final result Please view results for [...] obstruction. Disposition admission to medical service at [facility]. [facility] unfortunately does not have the capacity to perform paracentesis if deemed necessary. Given this illness provider would like patient be transferred to [facility] for small bowel obstruction management, general surgery consultation. Discussed with Dr. Salas who accepted patient for transfer. Patient will be transferred to [facility]. PROCEDURES: Unless otherwise noted below, none [...] 09/09/2023 6:18 PM EST Emergency Department Encounter [facility] ED Patient: Carolina Hightower : 1975 Date of Evaluation: 09/09/2023 ED Supervising Physician: Lenny Macdonald MD I independently examined and evaluated Carolina Hightower. This will serve as my Supervisory note as the tutoring clinician of record and shared attestation. Idid [...] withinpatient medicine team they recommend transfer to [facility] as they do not have IRP [...] [employer] Lenny Macdonald MD 09/12/23 1500 * Vanessa Hughes RN - 09/09/2023 6:18 PM EST Pt c/o abdominal pain that began this afternoon, states that she has hx of cirrhosis. Family statesshe seems off. documented in this [facility]12-16-2023 Emergency department Note* [facility] - 09/10/2023 4:47 AM EST They are here now to transport the patient to [facility] 09/10/23 0447 [address]Abzhfe84-50-0665 Emergency department Note* [facility] - 09/10/2023 4:32 AM EST [facility] ETA 0430 RN will call report in a few :) [facility] 09/10/23 0432 [address]Xtobxe72-13-2159 Emergency department Triage note* Vanessa Hughes RN - 09/09/2023 6:18 PM EST Pt c/o abdominal pain that began this afternoon, states that she has hx of cirrhosis. Family statesshe seems off. [address]Fwfodf81-47-7233 Physician Emergency department Note* JOSE Collins - [...] Culture. Procedure Abnormality Status --------- ------ Complete Urinalysis[[id number]] Abnormal Final result Please view results for [...] and DIFFERENTIAL DIAGNOSIS/MDM: Vitals: Vitals: 09/09/23 1827 09/09/238 BP: (!) 114/90 124/66 Pulse: 74 82 [...] obstruction. Disposition admission to medical service at [facility]. [facility] unfortunately does not have the capacity to perform paracentesis if deemed necessary. Given this illness provider would like patient be transferred to [facility] for small bowel obstruction management, general surgery consultation. Discussed with Dr. Salas who accepted patient for transfer. Patient will be transferred to [facility]. PROCEDURES: Unless otherwise noted below, none [...] signed) Emergency Medicine Provider JOSE Collins 09/09/232117 [facility] CenterSofevv85-11-6681 Physician Emergency department Note* Lenny Macdonald MD - 09/09/2023 6:18 PM EST Emergency Department Encounter [facility] ED Patient: Carolina Hightower : 1975 Date of Evaluation: 09/09/2023 ED Supervising Physician: Lenny Macdonald MD I independently examined and evaluated Carolina Hightower. This will serve as my Supervisory note as the tutoring clinician of record and shared attestation. Idid [...] withinpatient medicine team they recommend transfer to [facility] as they do not have IRP [...] [employer] Lenny Macdonald MD 09/12/23 1500 [facility] [email or web address] Phone: 1(743) 167-860311-27-2023 Discharge summary Author Darius Rosales [facility] August 22, 2023 2:55pm Note Date/Time August 22, 2023 7:59am [facility] Medical Records Department [address] [place] [address] Emergency Department Summary 08/22/23 MR#: [id number] Acct: [id number] Name: CAROLINA HIGHTOWER Rep #:[id number] : 1975 47 From: Darius Rosales DO PCP: Dr. Dacia Acosta MD Status:RE G ER Location: ED HPI HPI - Psych History of Present Illness Chief Complaint: Mental Health Narrative Narrative: 47-year-old female presenting with depression. Patient was brought in by [place] [employer]. Patient states that she stated she wanted to kill herself and kill all the people in [place]. She states that she only said this [...] this time. Patient was seen by the high school social studies teacher and plan is currently to place her. [...] % (Auto) 54.4 Lymph % (Auto) 29.4 Stevens % (Auto) 11.0 H Eos % (Auto) [...] your Primary Care Provider. Call [facility] ([phone]) or report to the closest Emergency Room. Call 911 if necessary. 08/22/23 2172 <Electronically signed by Darius Rosales DO> Cosigner Signature (if applicable): CC: Dr. Dacia Acosta MD ~ Signed [facility] Work Phone: 1(592) 513-528211-20-2023 Procedure [facility] 07-21-2023 Progress note Author Michi Forbes [facility] July 21, 2023 1:03pm Note Date/Time July 21, 2023 7 :35am [facility] Medical Records Department [address] [place] [address] Progress Note - Hospitalist 07/21/23 0733 MR#: [id number] Acct: [id number] Name: CAROLINA HIGHTOWER Rep #:[id number] : 1975 47 From: Michi Forbes DO PCP: Dr. Dacia Acosta MD Status:AD M MARTHA Location: [facility] SI017-9 Subjective Subjective Feeling well. Has had chronic [...] % (Auto) 55.7, Lymph % (Auto) 30.0, Stevens % (Auto) 9.1, Eos % (Auto) 4.2, [...] % (Auto) 52.2, Lymph % (Auto) 31.8, Stevens % (Auto) 10.6 H, Eos % (Auto) [...] Cosigner Signature (if applicable): CC: ~ Signed [facility] Work Phone: 1(587) 681-505210-26-2023 History and physical note Author Gurinder Mittal [facility] July 21, 2023 8:51am Note Date/Time July 20, 2023 8 :56pm [facility] Medical Records Department [address] [place] [address] H&P Exam - Hospitalist 07/20/232055 MR#: [id number] Acct: [id number] Name: CAROLINA HIGHTOWER Rep #:[id number] : 1975 47 From: Gurinder Mittal MD PCP: Dr. Dacia Acosta MD Status:AD [facility] ASSOCIATION UH951-3 HPI - General General Date of Admission: [...] ascites. Emergency department doctor discussed with Dr. Foster, cyber intel planner who recommended the patient stays at hospital [...] % (Auto) 55.7, Lymph % (Auto) 30.0, Stevens % (Auto) 9.1, Eos % (Auto) 4.2, [...] 45 minutes. Charges/Coding Visit Charges Inpatient E&M: 27909 Init Hosp L2 07/21/23 0851 <Electronically signed by Gurinder Mittal MD> Cosigner Signature (if applicable): CC: Dr. Gurinder Mittal MD; Dr. Dacia Acosta MD~ Signed [facility] Work Phone: 1(768) 590-911810-26-2023 Procedure [facility] 07-20-2023 Discharge summary Author Darius Rosales [facility] July 20, 2023 9:43pm Note Date/Time July 20, 2023 9 :43pm [facility] Medical Records Department [address] [place] [address] Emergency Department Summary 07/20/23 MR#: [id number] Acct: [id number] Name: CAROLINA HIGHTOWER Rep #:[id number] : [...] % (Auto) 55.7 Lymph % (Auto) 30.0 Stevens % (Auto) 9.1 Eos % (Auto) 4.2 [...] your Primary Care Provider. Call [facility] ([phone]) or report to the closest Emergency Room. Call 911 if necessary. 07/20/232142 <Electronically signed by Darius Rosales DO> Cosigner Signature (if applicable): CC: Dr. Dacia Acosta MD ~ Signed [facility] Work Phone: 1(975) 235-101407-31-2023 Hospital Discharge instructions Additional Instructions 1. Apply ice to bruised area 6-10 times a day for the next 3 days. 2. You may take either ibuprofen or Aleve for your pain.[facility] Work Phone: 1(911) 741-401106-29-2023 Miscellaneous Notes* Telephone Encounter - Lyssa Suárez [...] and advise. Radha Blair documented in this encounterMer[facility]05-04-2023 Miscellaneous Notes* Telephone Encounter - Melisa Vick Ma - 01/27/2023 1:50 PM EDT Pt notified. Melisa Vick Ma * Telephone Encounter - Dacia Acosta MD - 01/27/2023 1:40 PM EDT OK for doxycycline and bactroban as ordered Dacia Acosta MD * Telephone Encounter - Ledy Orantes Ma - 01/27/2023 11:16 AM EDT See message from pt and advise. Ledy Orantes Ma * Telephone Encounter - Poornima Garvinsec - 01/27/2023 10:46 AM EDT Carolina Hightower is calling Dacia Acosta MD today to request a refill on the antibiotic prescribed for patient open wound on her chin. Also asking for the cream to apply to same wound. Patient is not sure of either of these medication names. Please send RX to [facility] in [place] and advise patient when these have been ordered by provider per patient request. Patient has been identified by name and birthdate. Duration of symptoms: months Person calling: self Call patient at: at home [phone] (home) [phone] (cell) Was an appointment scheduled: No Closing statement: Results or non-symptom based questions: Thank you for calling [facility], your call will be returned within the next business day. Poornima Brown [employer] documented in this encounterMercy [facility]05-02-2023 Miscellaneous Notes* Letter - Mammography Coordinator - 01/25/2023 9:22 AM EDT January 26, 2023 PID: [id number] Carolina Hightower [facility] [address] [address] Dear Ms. Hightower, Your recent breast imaging [...] who ordered/prescribed your screening mammogram: Please call [phone] or [phone] to schedule an appointment for your additional [...] reports are kept on file at [facility] as part of your permanent medical record, and are available for your continuing care. Thank you for allowing us to help in meeting your health care needs. Sincerely, Dr. Estrada Interpreting Radiologist [facility] (Additional imaging) documented in this encounterMercy Health Lorain Hospital03-09-2023 History of Present illness Narrative* JOSE Vega - 12/02/2022 12:58 PM EST Images from the original note were not included. This note was created using NoteWriter. Subjective Carolina Hightower is a 47 year [...] PAST SURGICAL HISTORY OF 2018 liver bx [facility] ALLERGIES Aspirin, Bupropion, Codeine, Prednisone, and [...] Wt 94.6 kg (208 lb 9.6 oz) LMP11/20 (Approximate) SpO2 98% BMI 38.15 kg/m Physical [...] ER evaluation. JOSE Vega documented in this encounterMercy Health [facility] Hospital01-07-2023 Miscellaneous Notes* Telephone Encounter - Kayleen Rapp MA - 10/02/2022 10:30 AM EST Left message of results on secure voicemail. Kayleen Rapp MA * Telephone Encounter - Kaylin Freed APRN.CNP - 10/02/2022 10:19 AM EST Please call patient and inform that her wound culture is negative. She can quit taking the ATB. She needs to follow up as directed. documented in this encounterMercy Health Lor[facility] Hospital01-04-2023 History of Present illness Narrative* Lynn [...] ROUTINE Lynn Prabhakar MD documented in this encounterMercy Health Lorain Hospital12-21-2022 History of Present illness Narrative* Jean [...] Outreach HCC or suspected condition Payer: Payor: [facility] MEDICAID / Plan: [facility] MEDICAID / Product Type: Medicaid / [...] 15, 2022 1:09 PM documented in this encounterMercy Health Lorain Hospital09-28-2022 Miscellaneous Notes* Telephone Encounter - Dacia Acosta MD - 06/23/2022 1:58 PM EDT Her dose was changed to 100 mg bid, and a prescription was sent for this at her last appt. Dacia Acosta MD * Telephone Encounter - Shannon Dawson MA - 06/23/2022 8:52 AM EDT This request is from [facility]. Our prescription is 100 mg taken twice [...] scheduled. 10/2022 was cancelled. documented in this encounterMercy Health Lorain Hospital08-29-2022 History of Present illness Narrative* Melisa Vick Ma - 05/24/2022 5:13 PM EDT TRANSITION CARE MANAGEMENT (TCM) INITIAL CONTACT Media Production Support Manager Outreach Provider Action/FYI: 7 day TCM Pt [...] might be hidden SUMMARY: -Pt discharged from [facility] on 05/21/22. -Admitted for: Acute Hepatic Encephalopathy Below copied from [facility] Meditech: History of Present Illness Chief [...] in the past. She is at a [facility]. She is not on lactulose or rifaximin. [...] This patient was seen in conjunction with SENIOR PROFESSIONAL SERVICES CONSULTANT, Kaylin. I have independently interviewed and [...] for provider to review documented in this encounterMercy Health Lorain Hospital08-29-2022 Miscellaneous Notes* Telephone Encounter - Melisa [...] Carolina called, sounded very confused was at [facility], thinks got D/C 05/21 for a fall, swelling on the brain. Please advise, . * Telephone Encounter - Ledy Orantes Ma - 05/24/2022 9:39 AM EDT Records located in scanning on PCP desk. Ledy Orantes Ma * Telephone Encounter - Roma Matt - 05/24/2022 9:27 AM EDT Carolina Hightower is calling Dacia Acosta MD today Patient was at [facility] this weekend from fall; injury to her head. Patient is confused with information the hospital told her at discharge. Asking the doctor review her records and return call to discuss findings. Patient can be reached at [phone] documented in this encounterMercy Health Lorain Hospital08-20-2022 Miscellaneous Notes* Telephone Encounter - Diya Feliciano RN - 05/15/2022 2:47 PM EDT Reason for Call: chin abscess w/ severe pain, new severe headache Outcome: Pt advised to see a physician within 4 hrs. She understands the recommendation and prefersto go to the [place] ED. See note below. Reason for Disposition [...] [facility] by [facility]:30pm. Pt refuses offer to speak with virtualist and prefers to have someone take her to the [place] ED. documented in this encounterMercy Health Lorain Hospital08-15-2022 History of Present illness Narrative* Dacia [...] pharmacy closing yesterday. Also has yet to filler picker today. Pain a 9/10 and described [...] PAST SURGICAL HISTORY OF 2018 liver bx [facility] Family History FAMILY HISTORY Problem Relation [...] as instructed every 4 hours as needed. Yvinvjvzwzmfsgm-Sxeuosupn-QL (BROMFED DM) 2-30-10 mg/5 mL syrup Take [...] Dermatitis - ICD9: 692.9, ICD10: L30.9 supervisor remelt the antibiotics as ordered in [facility]; call if not improved after the 5 days of treatment; she may need additional medication Follow up with Derm as scheduled Medical Decision Making: Problems: Low: Acute, uncomplicated illness or injury Risk: Moderate: Drug management Medical Decision Making Level: 3 - Low Dacia Acosta MD documented in this encounterMercy Health Lorain Hospital08-14-2022 History of Present illness Narrative* Blanca Dawson APRN.MONUMENTAL STONEMASON - 05/09/2022 2:58 PM EDT Images from [...] history is provided by the patient. No furrier shop supervisor was used. Rash Review of Systems Constitutional: [...] PAST SURGICAL HISTORY OF 2018 liver bx [facility] ALLERGIES Aspirin, Bupropion, Codeine, Prednisone, and [...] (Patient not taking: Reported on 03/11/2022 ) Ceqqnhrrptnwdws-Tpezjjncf-KP (BROMFED DM) 2-30-10 mg/5 mL syrup^Take 5-10 [...] worsens. Blanca Dawson APRN.DEEPIKA documented in this encounterMercy Health Lor[facility] Hospital08-12-2022 Miscellaneous Notes* Telephone Encounter - Dyan [...] Please advise. Patient can be reached at [phone]. Patient doesn't use mychart very well. documented in this encounterMercy Health Lorain Hospital06-16-2022 History of Present illness Narrative* Tresa Sandoval APRN.MONUMENTAL STONEMASON - 03/11/2022 3:00 PM EDT This is [...] PAST SURGICAL HISTORY OF 2018 liver bx [facility] ALLERGIES Aspirin, Bupropion, Codeine, Prednisone, and [...] as instructed every 4 hours as needed. Zqavfxdudqzjllh-Qpxujnlam-NJ (BROMFED DM) 2-30-10 mg/5 mL syrup Take [...] APRN.CNP This note was partially generated using [employer] voice recognition system. Note was reviewed for accuracy. There may be minor misspellings or grammar miscues with [employer] voice recognition. documented in this encounterMercy Health Lorain Hospital06-16-2022 Instructions* Patient Instructions* Tresa Sandoval APRN.CNP - 03/11/2022 2:41 PM EDT 1.) Start keflex for skin infection 2.) Try not to touch face to prevent more bacterial growth. 3.) Recommend a gentle cleanser such as Cetaphil face wash. 4.) Schedule appointment with dermatology: Local would be Boaz Narvaez or Donta Frausto. 5.) Follow up as needed. documented in this encounterMercy Health Lorain Hospital06-16-2022 Miscellaneous Notes* Telephone Encounter - Ledy Orantes Ma - 03/11/2022 11:50 AM EDT Pt has an appt today with Tresa Sandoval CNP this can be filled at that time. Hasn't been seen since 08/21/21. Ledy Orantes Ma * Telephone Encounter - Kemal Amato - 03/11/2022 11:13 AM EDT Please send gabapentin to [facility] in [place]. Thank you. documented in this encounterMercy Health Lorain Hospital04-19-2022 Miscellaneous Notes* Telephone Encounter - Jen Neely LPN - 01/12/2022 8:37 AM EDT Left message for patient with results and recommendations.Jen Neely LPN * Telephone Encounter - Blanca Dawson APRN.CNP - 01/12/2022 7:24 AM EDT Negative for flu B, covid and positive for flu A. Please notify thank you documented in this encounterMercy Health Lorain Hospital04-18-2022 Instructions* Patient Instructions* Becca Singer APRN.CNP [...] breath, inability to swallow. documented in this encounterMercy Health Lorain Hospital04-18-2022 History of Present illness Narrative* Becca [...] have confirmed and edited as necessary, the [facility] Review of Systems Constitutional: Negative for [...] in 24-48 hours with results, available on [employer] WITH FLUA+B, ROUTINE Advised needs follow up with PCP Diagnosis and treatment plan were discussed and questions were answered to the patient's satisfaction. Pt acknowledged understanding of concepts and follow up plan. Specific signs and symptoms that would indicate the need for higher level of care were discussed indetail warranting prompt ER evaluation. Becca Singer APRN.DEEPIKA documented in this encounterProMedica Toledo Hospital note Author Cindi Newman [facility] Note Date/Time March 15, 2025 1:25 pm [facility] Medical Records Department [address] [facility] [place] [address] Anesthesia Postop Eval I 03/15/25 1324 MR#: [id number] Acct: [id number] Name: CAROLINA HIGHTOWER Rep #:[id number] : 1975 49 From: Cindi Newman PCP: Eyad Saeed SENIOR PROFESSIONAL SERVICES CONSULTANT-C Status:REG [facility] Race: C Location: [place] [address] Anesthesia: Postop Eval I Current Vital Signs [...] Cindi Cordero Signature: Date CC: ~ Signed [facility] Work Phone: Discharge summary Author Michi Forbes [facility] July 21, 2023 1:14pm Note Date/Time July 21, 2023 1 :11pm [facility] Medical Records [place] [address] Discharge Summary 07/21/23 1304 MR#: [id number] Acct: [id number] Name: CAROLINA HIGHTOWER Rep #:[id number] : 1975 47 From: Michi Forbes DO PCP: Dr. Dacia Acosta MD Status:CLEOPATRA THOMAS Location: MS2 KC567-1 Providers Date of Admission: 07/20/23 Primary Care [...] % (Auto) 55.7, Lymph % (Auto) 30.0, Stevens % (Auto) 9.1, Eos % (Auto) 4.2, [...] % (Auto) 52.2, Lymph % (Auto) 31.8, Stevens % (Auto) 10.6 H, Eos % (Auto) [...] 19:45 EDT Reading Location ID and State: [id number] [place] Tel [phone], Service support , Foot X-Ray 07/20/23 19:15 [...] Foster; Gurinder Mittal Instructions Patient Instructions: JIM CAO [...] [Primary Care Provider] - Within 2 Weeks Friend,DO Marcelina [Med Staff - Active Staff] - 11/16/23 1:30 pm Disposition Disposition (needs filled in before D/C Order can be placed): Home, Self Care Charges/Coding Visit Charges Inpatient E&M: 43895 Disch Hosp >30min 07/21/23 1314 <Electronically signed by Michi Forbes DO> Cosigner Signature (if applicable): CC: Dr. Michi Forbes DO; Dr. Dacia Acosta MD~ Signed [facility] Work Phone: Discharge summary Author Chris Ramos [facility] Note Date/Time February 08, 2025 12:36 pm [facility] Medical Records Department [address] [place] [address] Emergency Department Summary 02/08/25 MR#: [id number] Acct: [id number] Name: CAROLINA HIGHTOWER Rep #:[id number] : [...] as well as her PCP at the [facility], she has had a referral put [...] here to the ER according to her. [facility] Medical History Decompensated cirrhosis Abdominal ascites [...] that appointment yet. She had been at [facility] for behavioral health and was transferred to [place] because they thought that she only had [...] this time. I also did check an [facility] report, she has rare prescriptions for antibiotics and none of them have been recent. History & Record Review Additional record(s) reviewed:: Prior ED visit Management Discussion w/another healthcare provider: social worker clinical/Case management Discharge Plan Triage Chief Complaint: Abd Pain ED Provider: Crhis Ramos Dx/Rx/DC Orders Clinical Impression: Cirrhosis of [...] Care Provider: Tresa Sandoval Referrals: Tresa Sandoval, SENIOR PROFESSIONAL SERVICES CONSULTANT-C [Primary Care Provider] - (If you have further issues before seeing palliative care or pain management) Print Language: Samoan Disposition Disposition: Home, Self Care What to do if you have Problems For any increased pain, shortness of breath, bleeding, nausea or vomiting, chestpain, or any unexpected problems, contact your Primary Care Provider. Call [facility] ([phone]) or report to the closest Emergency Room. Call 911 if necessary. 02/08/25 1236 <Electronically signed by Chris Ramos MD> Cosigner Signature (if applicable): CC: SENIOR PROFESSIONAL SERVICES CONSULTANT-C Tresa Sandoval ~ Signed [facility] Work Phone: Discharge summary Author Brock Ruiz [facility] Note Date/Time July 11, 2025 1 2:24pm [facility] Medical Records Department [address] [place] [address] Emergency Department Summary 07/11/25 MR#: [id number] Acct: [id number] Name: CAROLINA HIGHTOWER Rep #:[id number] : 1975 49 From: Brock girard DO PCP: Eyad Saeed SENIOR PROFESSIONAL SERVICES CONSULTANT-C Status:DEP ER Location: ED HPI History of Present Illness Chief Complaint: Back Narrative Narrative: Chief complaint and HPI: 49-year-old female with past medical history of polysubstance abuse, hepatitis C with cirrhosis, history of lumbar herniated disc presents for evaluation of lumbar back pain. Patient states for the past 30 days she has been in snf. States that their beds are not comfortable or padded. States she was discharged from snf yesterday. She denies any trauma tothe back [...] she did not get good care in snf. Review of systems: See HPI Medications: As [...] intact Psych: Cooperative, appropriate mood and affect [facility] Medical History (Updated 07/11/25 @ 12:07 by [...] past 30 days she has been in snf. States that their beds are not comfortable or padded. States she was dischargedfrom snf yesterday. She denies any trauma to the [...] feel that she got good care at snf and requesting basic labsto be performed. This [...] 70.2 H Lymph % (Auto) 17.3 L Stevens % (Auto) 9.5 Eos % (Auto) 2.4 [...] Sl. Cloudy Urine pH 6.0 Ur Specific Amity 1.025 Urine Protein 30 H Urine Glucose [...] is most severe at L5-S1. Reading [facility] Discharge Plan Triage Chief Complaint: Back ED [...] W/Diff, Automated (Routine) Timeframe: 3 Days Facility: [facility] - Location: Laboratory Ordered By: Dr. Brock [facility]Lif[facility]oint [facility] Primary Care Provider: Eyad Saeed Referrals: Gurinder Ahn DO [Med Staff - Active Staff, Orthopedics] - 3-5 Days Marcelina Foster DO [Med Staff - Active Staff, Gastroenterology] - 3-5 Days Eyad Saeed, SENIOR PROFESSIONAL SERVICES CONSULTANT-C [Primary Care Provider, Family Practice] - 3-5 [...] and heating pad as needed. Print Language: Samoan Disposition Disposition: Home, Self Care Discharge Date/Time: 07/11/25 12:24 What to do if you have Problems For any increased pain, shortness of breath, bleeding, nausea or vomiting, chestpain, or any unexpected problems, contact your Primary Care Provider. Call Doctors Registry ([phone]) or report to the closest Emergency Room. Call 911 if necessary. 07/11/25 1517 <Electronically signed by Brock Ruiz DO> Cosigner Signature (if applicable): CC: Eyad ALSTON SENIOR PROFESSIONAL SERVICES CONSULTANT-C Beam ~ Signed [facility] Work Phone: Evaluation + Plan note No data available for this section [facility] Evaluation note* Diagnosis Viral illness- Primary Unspecified viral infection, in conditions classified elsewhere and of unspecified site [facility]* Diagnosis Bacterial skin infection- Primary Unspecified local infection of skin and subcutaneous tissue Acne vulgaris Other acne Chronic midline low back pain with bilateral sciatica documented [facility] this [facility]* Diagnosis Encounter for screening mammogram for breast cancer documented in this encounter [facility]* Diagnosis Wound check, abscess- Primary Encounter for other specified aftercare [facility]* Diagnosis Dermatitis- Primary Contact dermatitis and other eczema, due to unspecified cause documented [facility] this encounter [facility] noteNo assessment information availableWUniversity Hospitals St. [facility] Work Phone: Evaluation note* Diagnosis Onset Date Resolution Status Acute hepatic encephalopathy acute Hyperammonemia acute [facility] Work Phone: Evaluation note* Diagnosis Chronic midline low back pain with bilateral sciatica [facility] Onset Date Resolution Status Acute hepatic encephalopathy resolved Hyperammonemia resolved Cirrhosis of liver chronic Hepatitis C, chronic chronic [facility] Work Phone: Evaluation note* Diagnosis Cellulitis of chin- Primary Cellulitis and abscess of face Picking own skin Other disorder of impulse control URI, acute Acute upper respiratory infections of unspecified site [facility]* Diagnosis Skin infection- Primary Unspecified local infection of skin and subcutaneous tissue documented [facility]* Diagnosis Cellulitis of chin Cellulitis and abscess of face documented in this encounter [facility] note* Diagnosis Low back pain, unspecified back pain laterality, unspecified chronicity, unspecified whether sciatica present documented in this encounter [facility] note* Diagnosis Onset Date Resolution Status Ascites acute Hyperbilirubinemia acute Skin ulcer of left great toe acute Subungual hematoma of great toe of left foot acute Cirrhosis of liver chronic [facility] Work Phone: Evaluation note* Diagnosis Encounter for screening mammogram for breast cancer documented in this encounter [facility] note* Diagnosis Onset Date Resolution Status Cirrhosis of liver acute Skin ulcer of left great toe acute Ascites chronic Subungual hematoma of great toe of left foot resolved Cirrhosis of liver acute Iron deficiency anemia acute Skin ulcer of left great toe acute Hepatitis C, chronic chronic Subungual hematoma of great toe of left foot resolved Ascites chronic [facility] Work Phone: Evaluation note* Diagnosis Small bowel obstruction (HCC)- Primary Unspecified intestinal obstruction Small bowel obstruction (HCC) Unspecified intestinal obstruction Polysubstance use disorder documented in this encounter [facility] [...] chronic Cirrhosis of liver acute Ascites chronic [facility] Work Phone: Evaluation note* Diagnosis Open wound of skin- Primary documented in this encounter [facility] note* Diagnosis Onset Date Resolution Status Cirrhosis [...] resolved Cirrhosis of liver acute Ascites resolved [facility] Work Phone: Evaluation note* Diagnosis Cirrhosis [...] unspecified whether recurrent documented in this encounter [facility] note* Diagnosis Onset Date Resolution Status Ascites resolved Cirrhosis of liver acute Ascites resolved Cirrhosis of liver acute [facility] Work Phone: Evaluation note* Diagnosis Onset Date Resolution Status Ascites resolved Cirrhosis of liver acute Ascites resolved Chronic pain of toe of right foot acute Cirrhosis of liver acute Iron deficiency anemia acute Nail dystrophy acute Tinea unguium acute Hepatitis C, chronic chronic Ascites resolved [facility] Work Phone: Evaluation note* Diagnosis Chronic hepatitis C without hepatic coma (HCC)- Primary Chronic hepatitis C without mention of hepatic coma Cirrhosis of liver with ascites, unspecified hepatic cirrhosis type (HCC) (HCC) Other ascites Nausea and vomiting, unspecified vomiting type documented in this encounter [facility] note* Diagnosis Onset Date Resolution Status Ascites resolved Chronic pain of toe of right foot acute Iron deficiency anemia acute Nail dystrophy acute Tinea unguium acute Hepatitis C, chronic chronic Ascites resolved [facility] Work Phone: Evaluation note* Diagnosis Low back pain, unspecified back pain laterality, unspecified chronicity, unspecified whether sciatica present documented in this encounter [facility] note* Diagnosis Skin sore- Primary Unspecified disorder of skin and subcutaneous tissue Gross hematuria Acute cystitis with hematuria Acute cystitis Anxiety with depression documented in this encounter [facility] note* Diagnosis Skin ulcer, limited to breakdown of skin (HCC)- Primary Excoriation (skin-picking) disorder MRSA (methicillin resistant Staphylococcus aureus) Methicillin resistant Staphylococcus aureus in conditions classified elsewhere and of unspecified site Local infection of skin and subcutaneous tissue Unspecified local infection of skin and subcutaneous tissue documented in this encounter [facility] note* Diagnosis Encounter for screening mammogram for breast cancer [facility]* Diagnosis Kidney stone- Primary Calculus of kidney Acute cystitis without hematuria Acute cystitis Cirrhosis of liver with ascites, unspecified hepatic cirrhosis type (HCC) (HCC) Thrombocytopenia (HCC) Thrombocytopenia, unspecified Seasonal allergic rhinitis due to pollen documented in this encounter [facility] note* Diagnosis Low back pain, unspecified back pain laterality, unspecified chronicity, unspecified whether sciatica present documented in this encounter [facility] note* Diagnosis Urinary frequency- Primary Acute cystitis with hematuria Acute cystitis Abrasion of foot with infection, unspecified laterality, initial encounter Skin lesion Unspecified disorder of skin and subcutaneous tissue documented in this encounter [facility] note* Diagnosis Diarrhea, unspecified type- Primary Kidney stone Calculus of kidney Acute cystitis without hematuria Acute cystitis Cirrhosis of liver with ascites, unspecified hepatic cirrhosis type (HCC) (HCC) Possible exposure to STD Other specified personal history presenting hazards to health History of abnormal cervical Pap smear Personal history of other genital system and obstetric disorders documented in this encounter [facility] note* Diagnosis Diarrhea, unspecified type documented in this encounter [facility] note* Diagnosis Hypokalemia- Primary Hypopotassemia documented in this encounter [facility] note* Diagnosis Alcoholic cirrhosis of liver with ascites (CMS/HCC)- Primary Chronic hepatitis C with cirrhosis (CMS/HCC) Chronic hepatitis C without mention of hepatic coma documented in this encounter [facility] note* Diagnosis Cirrhosis of liver (CMS/HCC)- Primary Cirrhosis of liver without mention of alcohol documented in this encounter [facility] note* Diagnosis Alcoholic cirrhosis of liver with ascites (CMS/HCC)- Primary Ascites Other ascites Amphetamine-type substance use disorder, severe (CMS/HCC) Chronic hepatitis C with cirrhosis (CMS/HCC) Chronic hepatitis C without mention of hepatic coma documented in this encounter [facility] note* Diagnosis Ascites- Primary Other ascites documented in this encounter [facility] note* Diagnosis Cirrhosis of liver with ascites (CMS/HCC)- Primary Alcoholic cirrhosis of liver with ascites (CMS/HCC)- Primary Ascites- Primary Other ascites documented in this encounter [facility] note* Diagnosis Cirrhosis of liver with ascites (CMS/HCC)- Primary Ascites- Primary Other ascites Ascites- Primary Other ascites documented in this encounter [facility] note* Diagnosis Cirrhosis of liver with ascites (CMS/HCC)- Primary Ascites- Primary Other ascites documented in this encounter [facility] note* Diagnosis Cirrhosis of liver with ascites (CMS/HCC)- Primary Ascites- Primary Other ascites Ascites Other ascites Ascites- Primary Other ascites Ascites- Primary Other ascites [facility] Diagnosis Cirrhosis of liver with ascites (CMS/HCC)- Primary Ascites- Primary Other ascites Ascites- Primary Other ascites Ascites Other ascites [facility] Diagnosis Cirrhosis of liver with ascites (CMS/HCC)- Primary Ascites- Primary Other ascites [facility]* Diagnosis Acute metabolic encephalopathy- Primary Hepatic [...] Ascites Other ascites [facility]* Diagnosis Acute metabolic encephalopathy- Primary Hepatic [...] Primary Other ascites [facility]* Diagnosis Acute metabolic encephalopathy- Primary Hepatic [...] Ascites Other ascites [facility]* Diagnosis Acute metabolic encephalopathy- Primary Hepatic [...] (CMS/HCC) Thrombocytopenia, unspecified [facility]* Diagnosis Acute metabolic encephalopathy- Primary Hepatic [...] Primary Other ascites [facility]* Diagnosis Acute metabolic encephalopathy- Primary Hepatic [...] mention of alcohol [facility]* Diagnosis Acute metabolic encephalopathy- Primary Hepatic [...] Primary Other ascites [facility]* Diagnosis Acute metabolic encephalopathy- Primary Hepatic [...] Primary Other ascites [facility]* Diagnosis Acute metabolic encephalopathy- Primary Hepatic [...] of unspecified site [facility]* Diagnosis Acute metabolic encephalopathy- Primary Hepatic [...] Primary Other ascites [facility]* Diagnosis Acute metabolic encephalopathy- Primary Hepatic [...] Ascites Other ascites [facility]* Diagnosis Acute metabolic encephalopathy- Primary Hepatic [...] pain, unspecified site [facility]* Diagnosis Acute metabolic encephalopathy- Primary Hepatic [...] for screening mammogram [facility]* Diagnosis Onychomycosis- Primary Dermatophytosis of nail Pain in toe of left foot Pain in limb Pain in toe of right foot Pain in limb Plantar fasciitis Plantar fascial fibromatosis [facility] Sowmya Mirza [facility] December 04, 2023 9:28pm Note Date/Time December 04, 2023 8:3 7pm [facility] Medical Records Department [address] [place] [address] H&P Exam - Hospitalist 12/04/232032 MR#: [id number] Acct: [id number] Name: CAROLINA HIGHTOWER Rep #:[id number] 13 : 1975 48 From: Sowmya Mirza MD PCP: Dr. Dacia Acosta MD Status:AD M IN Location: [address] HPI - General General Date of Admission: 12/04/23 Date of Service: 12/04/23 Chief Complaint: Abdominal pain, dysuria. HPI Narrative The patient is a 48 y/o F w/ PMHx: Obesity, Chronic anemia/iron deficiency anemia, Anxiety and Depression, Chronic hepatitis C/cirrhosis with chronic LFT/Bilirubin elevations w/ Hx polysubstance abuse (heroin, cannabis, methamphetamine), Tobacco use, Chronic thrombocytopenia who presents to the [facility] ED on 12/04/23 with history of [...] % (Auto) 62.4, Lymph % (Auto) 23.3, Stevens % (Auto) 10.7 H, Eos % (Auto) [...] Sl. 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 Full Code status. Charges/Coding Visit Charges Inpatient E&M: 55129 Init Hosp L3 12/04/234 <Electronically signed by Sowmya Mirza MD> Cosigner Signature (if applicable): CC: Dr. Sowmya Mirza MD; Dr. Dacia Acosta MD~ Signed [facility] Work Phone: Hospital Discharge instructions Additional Instructions Do not pick at the wound. Take both antibiotics the Bactrim 1 pill twice a day and Keflex 1 pill 4 times a day till gone. Follow-up with your doctor if not improving.[facility] Work Phone: Hospital Discharge instructions Additional [...] care physician for further outpatient evaluation and management.[facility] Work Phone: Hospital Discharge instructions Additional Instructions Your laboratory values look better than they did in recent weeks. Your heart rate was between 45 and 55, stop the nadolol and follow-up with your PCP. Return for any worsening symptoms.[facility] Work Phone: Hospital Discharge instructions Additional [...] Please follow with your primary care physician, cyber intel planner for further outpatient evaluation and management.[facility] Work Phone: Hospital Discharge instructions* Attachments The following attachments cannot be sent through Care Everywhere. * Ascites (General Information) (Samoan) * Cirrhosis of the Liver (General Information) (Samoan) * Paracentesis (General Information) (Samoan) * Naloxone (Into the nose) (Samoan) [facility] Attachments The following attachments cannot be sent through Care Everywhere. * Paracentesis (Discharge Care) ([place]amoan) [facility] Attachments The following attachments cannot be sent through Care Everywhere. * Paracentesis (Discharge Care) (Samoan) [facility] Attachments The following attachments cannot be sent through Care Everywhere. * Cirrhosis of the Liver (Discharge Care) (Samoan) * Abdominal Pain (Discharge Care) (Samoan) * Paracentesis (Discharge Care) (Samoan) * Nicotine (Absorbed through the skin) (Samoan) * Ascites (Discharge Care) (Samoan) [facility] Additional Instructions Your abdominal scan [...] PM today. Follow-up with Dr. Adams with GI.[facility] Work Phone: Hospital Discharge instructions Additional Instructions Return back to the ED as needed. Afrin and nose plug if rebleeding. Follow-up with your ENT specialist.[facility] Work Phone: Hospital Discharge instructionsAdditional Instructions You need to have your CBC repeated and 3 days to reassess your platelets. Return back to ED if symptoms change or worsen. Return back to the ED if you have any spontaneous bleeding. Follow-up with primary care physician, Dr. Foster, orthopedic physician. Continue your home medications. Recommend rest and heating pad as needed.[facility] Work Phone: Hospital Discharge instructionsAdditional Instructions Your labs are consistent with your prior labs. I spoke to ultrasound. They could not do it today but they think they can get you in the schedule possibly as early as tomorrow to have your abdominal paracentesis and get your ascites drained. They will call you in the morning. To get this set up.[facility] Work Phone: Reason for referral (narrative)* Diagnostic Procedure Only (Routine) - Pending Review Specialty Diagnoses / Procedures Referred By Marivel cao Referred To Contact [facility] Diagnoses Encounter for screening mammogram for breast cancer Procedures JEANETH SCREENING SCREENING MAMMOGRAPHY BI 2-VIEW BREAST INC Dacia Rice MD [address] [place] [address] [facility] [address] [place] [address] Referral ID Status Reason Start Date Expiration Date Visits Requested Visits Authorized [id number] Pending Review Auto-Generat ed Referral 03/24/2022 04/23/2023 1 1 [facility] for referral (narrative)* Diagnostic Procedure Only (Routine) - Closed Specialty Diagnoses / Procedures Referred By Contac t Referred To Contact BR IMAGING Diagnoses Encounter for screening mammogram for breast cancer Procedures JEANETH SCREENING SCREENING MAMMOGRAPHY BI 2-VIEW BREAST INC Dacia Rice MD [address] [place] [address] [facility] [address] [place] [address] Referral ID Status Reason Start Date Expiration Date V isits Requested Visits Authorized [id number] Closed Auto-Generate d Referral 03/24/2022 04/23/2023 1 1 T [facility] for referral (narrative)* Diagnostic Procedure Only (Routine) - Authorized Specialty Diagnoses / Procedures Referred By Contac t Referred To Contact [facility] IM[facility] Diagnoses Encounter for screening mammogram for breast cancer Procedures JEANETH SCREENING SCREENING MAMMOGRAPHY BI 2-VIEW BREAST INC Dacia Rice MD [address] [place] [address] [facility] [address] [place] [address] Referral ID Status Reason Start Date Expiration Date Visits Requested Visits Authorized [id number] Authorized Auto-Generat ed Referral 02/29/2024 03/30/2025 1 1 [facility] for referral (narrative)* Consultation (Routine) - Incomplete Specialty Diagnoses / Procedures Referred By Contact Referred To Contact Interventional Radiology / Radiology Diagnoses Alcoholic cirrhosis of liver with ascites (CMS/HCC) Chronic hepatitis C with cirrhosis (CMS/HCC) Pete Ponce MD [facility] Emergency Dept. [address] [place] [address] [facility] Interventional Rad [address] [place] [address] [place] [phone] Referral ID Status Reason Start Date Expiration Date V isits Requested Visits Authorized [id number] Incomplete 07/02/2024 07/02/2025 1 1 [facility] for referral (narrative)* Consultation (Routine) - Canceled Specialty Diagnoses / Procedures Referred By Contact Referred To Contact Interventional Radiology / Radiology Diagnoses Cirrhosis of liver (CMS/HCC) Pete Ponce MD [facility] Emergency Dept. [address] [place] [address] [facility] Interventional Rad [address] [place] [address] [place] [phone] Referral ID Status Reason Start Date Expiration Date V isits Requested Visits Authorized [id number] Canceled 07/05/2024 07/05/2025 1 1 [facility] for referral (narrative)* Consultation (Routine) - Incomplete Specialty Diagnoses / Procedures Referred By Contact Referred To Contact Interventional Radiology Diagnoses Abdominal pain Ascites Isabella Ch MD [address] [place] [address] [facility] [address] [place] [address] [place] [phone] Referral ID Status Reason Start Date Expiration Date V isits Requested Visits Authorized [id number] Incomplete 12/13/2024 12/13/2025 1 1 [facility]No reason for referral information availableWUniversity Hospitals St[facility] Work Phone: Reason for visit Narrative* Diagnostic Procedure Only (Routine) - Closed Specialty Diagnoses / Procedures Referred By Contac t Referred To Contact [facility] IM[facility] Diagnoses Encounter for screening mammogram for breast cancer Procedures JEANETH SCREENING SCREENING MAMMOGRAPHY BI 2-VIEW BREAST INC Dacia Rice MD [address] [place] [address] [facility] Imaging [address] [place] [address] Referral ID Status Reason Start Date Expiration Date V isits Requested Visits Authorized [id number] Closed Auto-Generate d Referral 03/24/2022 04/23/2023 1 1 [facility] Summary Purpose Family History No Family [...] Documents on File Type Date Recorded Patient Medical Insurance Biller Expl anation Advance Directive(s) 08/05/2018 8:00 PM Advance Directive(s) 08/04/2018 9:24 AM Documents on File Type Date Recorded Patient Medical Insurance Biller Expl anation Advance Directive(s) 08/05/2018 8:00 PM Advance Directive(s) 08/04/2018 9:24 AM Advance Directive Response Recorded Date/ Time Advance Directives No December 24 014 5:29pm Living Will No May 15 7:58pm Power of Sales Correspondence Clerk No May 15 7:58pm Advance Directive Response Recorded Date/ Time Advance Directives No December 24 014 5:29pm Living Will No May 19 2 6:05pm Power of Sales Correspondence Clerk No May 19 6:05pm Advance Directive Response Recorded Date/ Time Advance Directives No December 24 014 5:29pm Living Will No May 19 2 10:31pm Power of Sales Correspondence Clerk No May 19 2 022 10:31pm Advance Directive Response Recorded Date/ Time Advance Directives No December 24 014 4:29pm Living Will No May 19 2 9:31pm Power of Sales Correspondence Clerk No May 19 022 9:31pm Advance Directive Response Recorded Date/ Time Advance Directives No December 24 2 014 4:29pm Living Will No September 14 3:18pm Power of Sales Correspondence Clerk No September 14, 2022 3:18pm Advance Directive Response Recorded Date/ Time Advance Directives No December 24 2 014 5:29pm Living Will No April 25, 2023 3:29pm Power of Sales Correspondence Clerk No April 25 3 3:29pm Advance Directive Response Recorded Date/ Time Advance Directives No December 24 014 5:29pm Living Will No July 20 5:57pm Power of Sales Correspondence Clerk No July 20, 2023 5:57pm Advance Directive Response Recorded Date/ Time Advance Directives No December 24 014 5:29pm Living Will No July 21 3:03am Power of Sales Correspondence Clerk No July 21, 2023 3:03am Advance Directive Response Recorded Date/ Time Advance Directives No December 24 4:29pm Living Will No August 22 023 7:03am Power of Sales Correspondence Clerk No August 22, 2023 7:03am Latest Code Status on File Code Status Date Activated Date Inactivated Comments Full Code 09/10/2023 5:47 AM 09/15/2023 8:53 PM Latest Code Status on File Code Status Date Activated Date Inactivated Comments Full Code 09/10/2023 5:47 AM 09/15/2023 8:53 PM Advance Directive Response Recorded Date/ Time Advance Directives No December 24 014 4:29pm Living Will No September 24 023 8:43pm Power of Sales Correspondence Clerk No September 24, 2023 8:43pm Advance Directive Response Recorded Date/ Time Advance Directives No December 24 2 014 4:29pm Living Will No October 06 11:14pm Power of Sales Correspondence Clerk No October 06, 2023 11:14pm Advance Directive Response Recorded Date/ Time Advance Directives No December 24, 2 014 4:29pm Living Will No November 05, 024 7:41pm Power of Sales Correspondence Clerk No November 05, 2023 7:41pm Advance Directive Response Recorded Date/ Time Advance Directives No December 24, 2 014 4:29pm Living Will No November 10, 024 4:09pm Power of Sales Correspondence Clerk No November 10, 2023 4:09pm Latest Code Status on File Code Status Date Activated Date Inactivated Comments Full Code 11/18/2023 5:41 PM 11/23/2023 8:49 PM Question Answer Comments Full Code Order Discussed With: Patient Advance Directive Response Recorded Date/ Time Advance Directives No December 24, 014 5:29pm Living Will No December 04, 2023 5:14pm Power of Sales Correspondence Clerk No December 03 5:14pm Advance Directive Response Recorded Date/ Time Advance Directives No December 24, 014 5:29pm Living Will No December 04, 2023 10:16pm Power of Sales Correspondence Clerk No December 03 10:16pm Date Activated Date Inactivated Comments 11/18/2023 5:41 PM 11/23/2023 8:49 PM Question Answer Comments Full Code Order Discussed With: Patient Advance Directive Response Recorded Date/ Time Advance Directives No December 24 014 5:29pm Living Will No December 09, 2023 6:53pm Power of Sales Correspondence Clerk No December 08 6:53pm Advance Directive Response Recorded Date/ Time Advance Directives No December 24, 014 5:29pm Living Will No December 26, 2023 11:09am Power of Sales Correspondence Clerk No December 25 11:09am Date Activated Date Inactivated Comments 11/18/2023 5:41 PM 11/23/2023 8:49 PM Question Answer Comments Full Code Order Discussed With: Patient Advance Directive Response Recorded Date/ Time Advance Directives No December 24 014 4:29pm Living Will No November 07 8:02am Power of Sales Correspondence Clerk No November 07, 2023 8:02am Date Activated [...] Date/ Time Advance Directives No January 18 3:18pm Do you have a Healthcare Power of Sales Correspondence Clerk? No February 04, 2025 11:45am Advance Directive Response Recorded Date/ Time Advance Directives No January 18 3:18pm Do you have a Healthcare Power of Sales Correspondence Clerk? No February 04, 2025 11:45am Do you have a Healthcare Power of Sales Correspondence Clerk? No February 08, 2025 11:25am Advance Directive Response Recorded Date/ Time Advance Directives No January 18 3:18pm Do you have a Healthcare Power of Sales Correspondence Clerk? No February 04, 2025 11:45am Do you have a Healthcare Power of Sales Correspondence Clerk? No February 08, 2025 11:25am Do you have a Healthcare Power of Sales Correspondence Clerk? No February 21, 2025 11:54pm Advance Directive Response Recorded Date/ Time Advance Directives No January 18 3:18pm Do you have a Healthcare Power of Sales Correspondence Clerk? No February 26, 2025 8:37pm Do you have a Healthcare Power of Sales Correspondence Clerk? No February 04, 2025 11:45am Do you have a Healthcare Power of Sales Correspondence Clerk? No February 08, 2025 11:25am Do you have a Healthcare Power of Sales Correspondence Clerk? No February 21, 2025 11:54pm Advance Directive Response Recorded Date/ Time Advance Directives No January 18 3:18pm Do you have a Healthcare Power of Sales Correspondence Clerk? No March 13, 2025 4:01pm Do you have a Healthcare Power of Sales Correspondence Clerk? No February 26, 2025 8:37pm Do you have a Healthcare Power of Sales Correspondence Clerk? No February 04, 2025 11:45am Do you have a Healthcare Power of Sales Correspondence Clerk? No February 08, 2025 11:25am Do you have a Healthcare Power of Sales Correspondence Clerk? No February 21, 2025 11:54pm Advance Directive Response Recorded Date/ Time Do you have a Healthcare Power of Sales Correspondence Clerk? No March 13, 2025 4:01pm Do you have a Healthcare Power of Sales Correspondence Clerk? No February 26, 2025 8:37pm Do you have a Healthcare Power of Sales Correspondence Clerk? No February 04, 2025 11:45am Do you have a Healthcare Power of Sales Correspondence Clerk? No February 08, 2025 11:25am Do you have a Healthcare Power of Sales Correspondence Clerk? No February 21, 2025 11:54pm Advance Directives No January 18, 2 025 3:18pm Advance Directive Response Recorded Date/ Time Do you have a Healthcare Power of Sales Correspondence Clerk? No March 13, 2025 4:01pm Advance Directives No January 18, 2 025 3:18pm Advance Directive Response Recorded Date/ Time Do you have a Healthcare Power of Sales Correspondence Clerk? No July 11, 2025 8:50am Do you have a Healthcare Power of Sales Correspondence Clerk? No July 15, 2025 3:07pm Advance Directives No January 18, 2 025 3:18pm Advance Directive Response Recorded Date/ Time Do you have a Healthcare Power of Sales Correspondence Clerk? No July 11, 2025 7:50am Do you have a Healthcare Power of Sales Correspondence Clerk? No July 15, 2025 2:07pm Advance Directives No January 18, 2 025 2:18pm Health Concerns Infection Onset Date Last Indicated Resolved Time COVID-19 Rule-Out 01/11/2022 01/11/2022 Infection Onset Date Last Indicated Resolved Time COVID-19 Rule-Out 01/11/2022 01/11/2022 01/12/2022 5:05 AM EDT Infection Onset Date Last Indicated Resolved Time COVID-19 Rule-Out 09/29/2022 09/29/2022 09/30/2022 5:39 AM EST Reason for Referral Specialty Diagnoses / Procedures Referred By Marivel cao Referred To Contact Dermatology Diagnoses Acne vulgaris Procedures CONSULT TO DERMATOLOGY Tresa Sandoval APRN.[facility] [address] [place] [address] Referral ID Status Reason Start Date Expiration Date Visits Requested Visits Authorized [id number] Ref Not Required PCP Requested Referral 03/11/2022 03/11/2023 1 1 Specialty Diagnoses / Procedures Referred By Contac t Referred To Contact Saima Lim MD [address] [place] [address] Referral ID Status Reason Start Date Expiration Date V isits Requested Visits Authorized [id number] Pending Review 1 1 Specialty Diagnoses / Procedures Referred By Contac t Referred To Contact Dermatology Diagnoses Open wound of skin Procedures CONSULT TO DERMATOLOGY Latasha William PA-C [address] [place] [id number] Referral ID Status Reason Start Date Expiration Date Visits Requested Visits Authorized [id number] Ref Not Required PCP Requested Referral 11/01/2023 10/31/2024 1 1 Specialty Diagnoses / Procedures Referred By Contac t Referred To Contact Gynecology Diagnoses History of abnormal cervical Pap smear Procedures CONSULT TO GYNECOLOGY OFFICE/OUTPATIENT [facility] 60 MINUTES Claribel Lagunas, SALES EXECUTIVE.MONUMENTAL [employer] [address] [place] [address] Referral ID Status Reason Start Date Expiration Date Visits Requested Visits Authorized [id number] Authorized PCP Requested Referral Auto-Generate d Referral 05/10/2024 05/10/2025 1 1 Specialty Diagnoses / Procedures Referred By Contac t Referred To Contact CT IMAGING Diagnoses Diarrhea, unspecified type Procedures CT ABD/PEL W IVCON CT ABD & PELVIS W/CONTRAST Claribel Lagunas, SALES EXECUTIVE.MONUMENTAL [employer] [address] [place] [address] [place] [address] Referral ID Status Reason Start Date Expiration Date Visits Requested Visits Authorized [id number] Pending Review Auto-Genera mary Referral Patient Cleared - Admin/Chair man/Directo r advise to proceed or did not respond 05/10/2024 06/09/2025 4 2 Specialty Diagnoses / Procedures Referred By Contac t Referred To Contact Radiology Diagnoses Visit for screening mammogram Procedures Mammo Screening (3D) Bilateral Referral, Self [address] [place] [address] [facility] Mammography [address] [place] [address] Referral ID Status Reason Start Date Expiration Date Visits Re quested Visits Authorized [id number] Closed 08/16/2024 08/16/2025 1 1 Chief Complaint [...] section and content) DATE CREATED AUTHOR 09/03/2018 [facility] DATE CREATED AUTHOR AUTHOR'S ORGANIZ ATION 10/02/2023 [facility] DATE CREATED AUTHOR AUTHOR'S ORGANIZ ATION 11/27/2023 [facility] DATE CREATED AUTHOR AUTHOR'S ORGANIZ ATION 03/30/2024 [facility] ([place]) DATE CREATED AUTHOR AUTHOR'S ORGANIZ ATION 06/08/2024 [facility] DATE CREATED AUTHOR AUTHOR'S ORGANIZ ATION 01/18/2025 [facility] DATE CREATED AUTHOR AUTHOR'S ORGANIZ ATION 02/20/2025 [facility] DATE CREATED AUTHOR AUTHOR'S ORGANIZ ATION 03/30/2025 [facility] DATE CREATED AUTHOR AUTHOR'S ORGANIZ ATION 06/15/2025 [facility] DATE CREATED AUTHOR AUTHOR'S ORGANIZ ATION 08/03/2025 [facility] DATE CREATED AUTHOR AUTHOR'S ORGANIZ ATION 08/04/[address] [facility] Source Comments (unrecognize d section and content) In the event this informatio n is protected by the Federal Confidentiality of Alcohol and Drug Abuse Patient Records regulations: The Federal rules restrict any use of the information to criminally investigate or prosecute any alcohol or drug abuse patient.[facility] Hospital[facility] the event this information is protected by the Federal Confidentiality of Alcohol and Drug Abuse Patient Records regulations: The Federal rules restrict any use of the information to criminally investigate or prosecute any alcohol or drug abuse patient.[facility] HospitalIn the event this information is protected by the Federal Confidentiality of Alcohol and Drug Abuse Patient Records regulations: The Federal rules restrict any use of the information to criminally investigate or prosecute any alcohol or drug abuse patient.[facility] HospitalIn the event this information is protected by the Federal Confidentiality of Alcohol and Drug Abuse Patient Records regulations: The Federal rules restrict any use of the information to criminally investigate or prosecute any alcohol or drug abuse patient.[facility] HospitalIn the event this information is protected by the Federal Confidentiality of Alcohol and Drug Abuse Patient Records regulations: The Federal rules restrict any use of the information to criminally investigate or prosecute any alcohol or drug abuse patient.[facility] HospitalIn the event this information is protected by the Federal Confidentiality of Alcohol and Drug Abuse Patient Records regulations: The Federal rules restrict any use of the information to criminally investigate or prosecute any alcohol or drug abuse patient.[facility] HospitalIn the event this information is protected by the Federal Confidentiality of Alcohol and Drug Abuse Patient Records regulations: The Federal rules restrict any use of the information to criminally investigate or prosecute any alcohol or drug abuse patient.[facility] HospitalIn the event this information is protected by the Federal Confidentiality of Alcohol and Drug Abuse Patient Records regulations: The Federal rules restrict any use of the information to criminally investigate or prosecute any alcohol or drug abuse patient.[facility] HospitalIn the event this information is protected by the Federal Confidentiality of Alcohol and Drug Abuse Patient Records regulations: The Federal rules restrict any use of the information to criminally investigate or prosecute any alcohol or drug abuse patient.[facility] HospitalIn the event this information is protected by the Federal Confidentiality of Alcohol and Drug Abuse Patient Records regulations: The Federal rules restrict any use of the information to criminally investigate or prosecute any alcohol or drug abuse patient.[facility] HospitalIn the event this information is protected by the Federal Confidentiality of Alcohol and Drug Abuse Patient Records regulations: The Federal rules restrict any use of the information to criminally investigate or prosecute any alcohol or drug abuse patient.[facility] HospitalIn the event this information is protected by the Federal Confidentiality of Alcohol and Drug Abuse Patient Records regulations: The Federal rules restrict any use of the information to criminally investigate or prosecute any alcohol or drug abuse patient.[facility] HospitalIn the event this information is protected by the Federal Confidentiality of Alcohol and Drug Abuse Patient Records regulations: The Federal rules restrict any use of the information to criminally investigate or prosecute any alcohol or drug abuse patient.[facility] HospitalIn the event this information is protected by the Federal Confidentiality of Alcohol and Drug Abuse Patient Records regulations: The Federal rules restrict any use of the information to criminally investigate or prosecute any alcohol or drug abuse patient.[facility] HospitalIn the event this information is protected by the Federal Confidentiality of Alcohol and Drug Abuse Patient Records regulations: The Federal rules restrict any use of the information to criminally investigate or prosecute any alcohol or drug abuse patient.[facility] HospitalIn the event this information is protected by the Federal Confidentiality of Alcohol and Drug Abuse Patient Records regulations: The Federal rules restrict any use of the information to criminally investigate or prosecute any alcohol or drug abuse patient.[facility] HospitalIn the event this information is protected by the Federal Confidentiality of Alcohol and Drug Abuse Patient Records regulations: The Federal rules restrict any use of the information to criminally investigate or prosecute any alcohol or drug abuse patient.[facility] HospitalIn the event this information is protected by the Federal Confidentiality of Alcohol and Drug Abuse Patient Records regulations: The Federal rules restrict any use of the information to criminally investigate or prosecute any alcohol or drug abuse patient.[facility] HospitalIn the event this information is protected by the Federal Confidentiality of Alcohol and Drug Abuse Patient Records regulations: The Federal rules restrict any use of the information to criminally investigate or prosecute any alcohol or drug abuse patient.[facility] HospitalIn the event this information is protected by the Federal Confidentiality of Alcohol and Drug Abuse Patient Records regulations: The Federal rules restrict any use of the information to criminally investigate or prosecute any alcohol or drug abuse patient.[facility] HospitalIn the event this information is protected by the Federal Confidentiality of Alcohol and Drug Abuse Patient Records regulations: The Federal rules restrict any use of the information to criminally investigate or prosecute any alcohol or drug abuse patient.[facility] HospitalIn the event this information is protected by the Federal Confidentiality of Alcohol and Drug Abuse Patient Records regulations: The Federal rules restrict any use of the information to criminally investigate or prosecute any alcohol or drug abuse patient.[facility] HospitalIn the event this information is protected by the Federal Confidentiality of Alcohol and Drug Abuse Patient Records regulations: The Federal rules restrict any use of the information to criminally investigate or prosecute any alcohol or drug abuse patient.[facility] HospitalIn the event this information is protected by the Federal Confidentiality of Alcohol and Drug Abuse Patient Records regulations: The Federal rules restrict any use of the information to criminally investigate or prosecute any alcohol or drug abuse patient.[facility] HospitalIn the event this information is protected by the Federal Confidentiality of Alcohol and Drug Abuse Patient Records regulations: The Federal rules restrict any use of the information to criminally investigate or prosecute any alcohol or drug abuse patient.[facility] HospitalIn the event this information is protected by the Federal Confidentiality of Alcohol and Drug Abuse Patient Records regulations: The Federal rules restrict any use of the information to criminally investigate or prosecute any alcohol or drug abuse patient.[facility] HospitalIn the event this information is protected by the Federal Confidentiality of Alcohol and Drug Abuse Patient Records regulations: The Federal rules restrict any use of the information to criminally investigate or prosecute any alcohol or drug abuse patient.[facility] HospitalIn the event this information is protected by the Federal Confidentiality of Alcohol and Drug Abuse Patient Records regulations: The Federal rules restrict any use of the information to criminally investigate or prosecute any alcohol or drug abuse patient.[facility] HospitalIn the event this information is protected by the Federal Confidentiality of Alcohol and Drug Abuse Patient Records regulations: The Federal rules restrict any use of the information to criminally investigate or prosecute any alcohol or drug abuse patient.[facility] HospitalIn the event this information is protected by the Federal Confidentiality of Alcohol and Drug Abuse Patient Records regulations: The Federal rules restrict any use of the information to criminally investigate or prosecute any alcohol or drug abuse patient.[facility] HospitalIn the event this information is protected by the Federal Confidentiality of Alcohol and Drug Abuse Patient Records regulations: The Federal rules restrict any use of the information to criminally investigate or prosecute any alcohol or drug abuse patient.[facility] HospitalIn the event this information is protected by the Federal Confidentiality of Alcohol and Drug Abuse Patient Records regulations: The Federal rules restrict any use of the information to criminally investigate or prosecute any alcohol or drug abuse patient.[facility] HospitalIn the event this information is protected by the Federal Confidentiality of Alcohol and Drug Abuse Patient Records regulations: The Federal rules restrict any use of the information to criminally investigate or prosecute any alcohol or drug abuse patient.[facility] HospitalIn the event this information is protected by the Federal Confidentiality of Alcohol and Drug Abuse Patient Records regulations: The Federal rules restrict any use of the information to criminally investigate or prosecute any alcohol or drug abuse patient.[facility] HospitalIn the event this information is protected by the Federal Confidentiality of Alcohol and Drug Abuse Patient Records regulations: The Federal rules restrict any use of the information to criminally investigate or prosecute any alcohol or drug abuse patient.[facility] HospitalIn the event this information is protected by the Federal Confidentiality of Alcohol and Drug Abuse Patient Records regulations: The Federal rules restrict any use of the information to criminally investigate or prosecute any alcohol or drug abuse patient.[facility] HospitalIn the event this information is protected by the Federal Confidentiality of Alcohol and Drug Abuse Patient Records regulations: The Federal rules restrict any use of the information to criminally investigate or prosecute any alcohol or drug abuse patient.[facility] HospitalIn the event this information is protected by the Federal Confidentiality of Alcohol and Drug Abuse Patient Records regulations: The Federal rules restrict any use of the information to criminally investigate or prosecute any alcohol or drug abuse patient.[facility] HospitalIn the event this information is protected by the Federal Confidentiality of Alcohol and Drug Abuse Patient Records regulations: The Federal rules restrict any use of the information to criminally investigate or prosecute any alcohol or drug abuse patient.[facility] HospitalIn the event this information is protected by the Federal Confidentiality of Alcohol and Drug Abuse Patient Records regulations: The Federal rules restrict any use of the information to criminally investigate or prosecute any alcohol or drug abuse patient.[facility] HospitalIn the event this information is protected by the Federal Confidentiality of Alcohol and Drug Abuse Patient Records regulations: The Federal rules restrict any use of the information to criminally investigate or prosecute any alcohol or drug abuse patient.[facility] HospitalIn the event this information is protected by the Federal Confidentiality of Alcohol and Drug Abuse Patient Records regulations: The Federal rules restrict any use of the information to criminally investigate or prosecute any alcohol or drug abuse patient.[facility] HospitalIn the event this information is protected by the Federal Confidentiality of Alcohol and Drug Abuse Patient Records regulations: The Federal rules restrict any use of the information to criminally investigate or prosecute any alcohol or drug abuse patient.[facility] HospitalIn the event this information is protected by the Federal Confidentiality of Alcohol and Drug Abuse Patient Records regulations: The Federal rules restrict any use of the information to criminally investigate or prosecute any alcohol or drug abuse patient.[facility] HospitalIn the event this information is protected by the Federal Confidentiality of Alcohol and Drug Abuse Patient Records regulations: The Federal rules restrict any use of the information to criminally investigate or prosecute any alcohol or drug abuse patient.[facility] HospitalIn the event this information is protected by the Federal Confidentiality of Alcohol and Drug Abuse Patient Records regulations: The Federal rules restrict any use of the information to criminally investigate or prosecute any alcohol or drug abuse patient.[facility] HospitalIn the event this information is protected by the Federal Confidentiality of Alcohol and Drug Abuse Patient Records regulations: The Federal rules restrict any use of the information to criminally investigate or prosecute any alcohol or drug abuse patient.[facility] HospitalIn the event this information is protected by the Federal Confidentiality of Alcohol and Drug Abuse Patient Records regulations: The Federal rules restrict any use of the information to criminally investigate or prosecute any alcohol or drug abuse patient.[facility] HospitalIn the event this information is protected by the Federal Confidentiality of Alcohol and Drug Abuse Patient Records regulations: The Federal rules restrict any use of the information to criminally investigate or prosecute any alcohol or drug abuse patient.[facility] HospitalIn the event this information is protected by the Federal Confidentiality of Alcohol and Drug Abuse Patient Records regulations: The Federal rules restrict any use of the information to criminally investigate or prosecute any alcohol or drug abuse patient.[facility] HospitalIn the event this information is protected by the Federal Confidentiality of Alcohol and Drug Abuse Patient Records regulations: The Federal rules restrict any use of the information to criminally investigate or prosecute any alcohol or drug abuse patient.[facility] HospitalIn the event this information is protected by the Federal Confidentiality of Alcohol and Drug Abuse Patient Records regulations: The Federal rules restrict any use of the information to criminally investigate or prosecute any alcohol or drug abuse patient.[facility] HospitalIn the event this information is protected by the Federal Confidentiality of Alcohol and Drug Abuse Patient Records regulations: The Federal rules restrict any use of the information to criminally investigate or prosecute any alcohol or drug abuse patient.[facility] HospitalIn the event this information is protected by the Federal Confidentiality of Alcohol and Drug Abuse Patient Records regulations: The Federal rules restrict any use of the information to criminally investigate or prosecute any alcohol or drug abuse patient.[facility] HospitalIn the event this information is protected by the Federal Confidentiality of Alcohol and Drug Abuse Patient Records regulations: The Federal rules restrict any use of the information to criminally investigate or prosecute any alcohol or drug abuse patient.[facility] HospitalIn the event this information is protected by the Federal Confidentiality of Alcohol and Drug Abuse Patient Records regulations: The Federal rules restrict any use of the information to criminally investigate or prosecute any alcohol or drug abuse patient.[facility] HospitalIn the event this information is protected by the Federal Confidentiality of Alcohol and Drug Abuse Patient Records regulations: The Federal rules restrict any use of the information to criminally investigate or prosecute any alcohol or drug abuse patient.[facility] HospitalIn the event this information is protected by the Federal Confidentiality of Alcohol and Drug Abuse Patient Records regulations: The Federal rules restrict any use of the information to criminally investigate or prosecute any alcohol or drug abuse patient.[facility] HospitalIn the event this information is protected by the Federal Confidentiality of Alcohol and Drug Abuse Patient Records regulations: The Federal rules restrict any use of the information to criminally investigate or prosecute any alcohol or drug abuse patient.[facility] Reason for Visit (unrecogniz ed section [...] Pain Specialty Diagnoses / Procedures Referred By Contac t Referred To Contact Diagnoses Small bowel obstruction (HCC) Procedures . Cindi Salas MD [address] [facility] [address] [place] [address] [address] Res[address] [facility] [place] [address] Referral ID Status Reason Start Date Expiration Date Visits Re quested Visits Authorized [id number] 1 1 Reason Comments Derm Problem Sore on chin, states has been there for years, she has a hard time not touching it, painful Reason Comments Patient Update Reason Onset Date Comments Transition Of Care 11/24/2023 [facility] discharge 11/23/23 Reason Comments Transition Of Care Reason Comments Appointment Patient Update Reason Comments ER F/U [facility] multiple times f rom 10/2023-11/3023: abdominal pain, cirrhosis of liver, ascites Reason Onset Date Comments Refill Request 01/19/2024 Reason Comments Same Day Appointment chin sore x 1 month and left foot sores x 4 days Reason Comments Hematuria Reason Comments Rash Chin /left foot Reason Onset Date Comments Transition Of Care 04/17/2024 [facility] D/C 2023 Reason Comments Transition Of Care [facility] Reason Comments Medication Question Reason Comments Urinary Frequency nausea x 2 days, sor e on chin x 2 days, cuts between toes from new flipflops Reason Comments Results Urine Cx mixed Reason Comments ER F/U Specialty Diagnoses / Procedures Referred By Contac t Referred To Contact CT IMAGING Diagnoses Diarrhea, unspecified type Procedures CT ABD/PEL W IVCON CT ABD & PELVIS W/CONTRAST Claribel Lagunas, HIRO.MONUMENTAL STONEMASON [address] [place] [address] [place] [address] Referral ID Status Reason Start Date Expiration Date Visits Requested Visits Authorized [id number] Pending Review Auto-Genera mary Referral Patient Cleared - Admin/Chair man/Directo r advise to proceed or did not respond 05/10/2024 06/09/2025 4 2 Reason Comments Multiple Health Concerns Reason Comments Lost medications 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 [facility] Hepatology - Follow-up 05/31/2024 HCV+ lab test Reason Comments Swelling Reason Comments Swelling abdomen Reason Comments Transfer Report Specialty Diagnoses / Procedures Referred By Contac t Referred To Contact Radiology Diagnoses Ascites Procedures Surgical Case Request: Paracentesis, Ultrasound Guidance [place] ABDOM PARACENTESIS DX/THER W/IMAGING GUIDANCE Minda Gómez MD [address] [place] [address] [employer] [address] [place] [address] [place] [address] Referral ID Status Reason Start Date Expiration Date V isits Requested Visits Authorized [id number] New Request 07/17/2024 07/17/2025 1 1 Reason Comments Abdominal Pain Swelling Specialty Diagnoses / Procedures Referred By Contac t Referred To Contact Radiology Diagnoses Ascites Procedures Surgical Case Request: Paracentesis, Ultrasound Guidance [place] ABDOM PARACENTESIS DX/THER W/IMAGING GUIDANCE Ginger Milton MD [address] [place] [address] [place] [address] [employer] [address] [place] [address] [place] [address] Referral ID Status Reason Start Date Expiration Date V isits Requested Visits Authorized [id number] New Request 07/26/2024 07/26/2025 1 1 Referral ID Status Reason Start Date Expiration Date V isits Requested Visits Authorized [id number] New Request 08/02/2024 08/02/2025 1 1 Specialty Diagnoses / Procedures Referred By Contac t Referred To Contact Radiology Diagnoses Ascites Procedures Surgical Case Request: Paracentesis, Ultrasound Office Visit [place] ABDOM PARACENTESIS DX/THER W/IMAGING GUIDANCE Ginger Milton MD [address] [place] [address] [employer] [address] [place] [address] Referral ID Status Reason Start Date Expiration Date V isits Requested Visits Authorized [id number] New Request 08/13/2024 08/13/2025 1 1 Specialty Diagnoses / Procedures Referred By Contac t Referred To Contact Radiology Diagnoses Ascites Procedures Surgical Case Request: Paracentesis, Ultrasound Guidance FL ABDOM PARACENTESIS DX/THER W/IMAGING GUIDANCE Max Rico MD [address] [place] [address] [facility] [address] [place] [address] Referral ID Status Reason Start Date Expiration Date V isits Requested Visits Authorized [id number] New Request 08/16/2024 08/16/2025 1 1 Referral ID Status Reason Start Date Expiration Date V isits Requested Visits Authorized [id number] New Request 08/16/2024 08/16/2025 1 1 Referral ID Status Reason Start Date Expiration Date V isits Requested Visits Authorized [id number] New Request 09/11/2024 09/11/2025 1 1 Referral ID Status Reason Start Date Expiration Date V isits Requested Visits Authorized [id number] New Request 09/11/2024 09/11/2025 1 1 Referral ID Status Reason Start Date Expiration Date V isits Requested Visits Authorized [id number] New Request 09/20/2024 09/20/2025 1 1 Reason Comments General Illness Referral ID Status Reason Start Date Expiration Date V isits Requested Visits Authorized [id number] New Request 09/20/2024 09/20/2025 1 1 Reason Comments Abdominal Pain Referral ID Status Reason Start Date Expiration Date V isits Requested Visits Authorized [id number] New Request 10/15/2024 10/15/2025 1 1 Referral ID Status Reason Start Date Expiration Date V isits Requested Visits Authorized [id number] New Request 10/19/2024 10/19/2025 1 1 Reason Comments Shortness of Breath Referral ID Status Reason Start Date Expiration Date V isits Requested Visits Authorized [id number] New Request 11/21/2024 11/21/2025 1 1 Referral ID Status Reason Start Date Expiration Date V isits Requested Visits Authorized [id number] New Request 11/29/2024 11/29/2025 1 1 Reason Comments Transfer Report Transfer from [facility] fo r back pain /abd pain Specialty Diagnoses / Procedures Referred By Contac t Referred To Contact Diagnoses Abdominal pain, r/o peritonitis Referral ID Status Reason Start Date Expiration Date Visits Re quested Visits Authorized [id number] 1 1 Specialty Diagnoses / Procedures Referred By Contac t Referred To Contact Radiology Diagnoses Visit for screening mammogram Procedures Mammo Screening (3D) Bilateral Referral, Self [address] [place] [address] [facility] Mammography [address] [place] [address] Referral ID Status Reason Start Date Expiration Date Visits Re quested Visits Authorized [id number] Closed 08/16/2024 08/16/2025 1 1 Reason Comments Nail Fungus New Care Teams (unrecognized sec tion and content) Senior Ui Developer Relationship Specialty Start Date End Date Dacia Acosta MD [address] [place] [address] PCP - General Family Practice 08/24/10 Senior Ui Developer Relationship Specialty Start Date End Date Dacia Acosta MD [address] [place] [address] PCP - General Family Practice 08/24/10 Senior Ui Developer Relationship Specialty Start Date End Date Dacia Acosta MD [address] [place] [address] PCP - General Family Practice 08/24/10 Senior Ui Developer Relationship Specialty Start Date End Date Dacia Acosta MD [address] [place] [address] PCP - General Family Practice 08/24/10 Senior Ui Developer Relationship Specialty Start Date End Date Dacia Acosta MD [address] [place] [address] PCP - General Family Practice 08/24/10 Senior Ui Developer Relationship Specialty Start Date End Date Dacia Acosta MD [address] [facility] [place] [address] PCP - General Family Practice 08/24/10 Senior Ui Developer Relationship Specialty Start Date End Date Dacia Acosta MD [address] [facility] [place] [address] PCP - General Family Practice 08/24/10 Senior Ui Developer Relationship Specialty Start Date End Date Dacia Acosta MD [address] [facility] [place] [address] PCP - General Family Practice 08/24/10 Senior Ui Developer Relationship Specialty Start Date End Date Dacia Acosta MD [address] [facility] [place] [address] PCP - General Family Practice 08/24/10 Senior Ui Developer Relationship Specialty Start Date End Date Dacia Acosta MD [address] [facility] [place] [address] PCP - General Family Practice 08/24/10 Senior Ui Developer Relationship Specialty Start Date End Date Dacia Acosta MD [address] [facility] [place] [address] PCP - General Family Medicine 08/24/10 Senior Ui Developer Relationship Specialty Start Date End Date Dacia Acosta MD [address] [facility] [place] [address] PCP - General Family Medicine 08/24/10 Senior Ui Developer Relationship Specialty Start Date End Date Dacia Acosta MD [address] [facility] [place] [address] PCP - General Family Medicine 08/24/10 Senior Ui Developer Relationship Specialty Start Date End Date Dacia Acosta MD [address] [facility] [place] [address] PCP - General Family Medicine 08/24/10 Senior Ui Developer Relationship Specialty Start Date End Date Dacia Acosta MD [address] [place], [place] [address] PCP - General Family Medicine 08/24/10 Senior Ui Developer Relationship Specialty Start Date End Date Dacia Acosta MD [address] [place], [place] [address] PCP - General Family Medicine 08/24/10 Senior Ui Developer Relationship Specialty Start Date End Date Dacia Acosta MD [address] [place], [place] [id number] PCP - General Family Medicine 08/24/10 Team [...] Shon Quintero MD Attending Provider, Emergency Provi jazmyne Active Team Status: Active Member Role Status [...] Active Member Role Status Dates Dr. Dacia Acsota MD Primary Care Provider Active Dr. Darius Rosales , DO Emergency Provider Active Dr. Gurinder Mittal MD Admit Provider, Other Provide r Active Dr. Marcelina Foster , DO Other Provider Active Dr. Michi Forbes , DO Attending Provider, Other Provid er Active Team Status: Inactive Member Role Status Dates Dr. Dacia Acosta MD Primary Care Provider Active Dr. Darius Rosales DO Emergency Provider Active Dr. Gurinder Mittal MD Admit Provider, Other Provide r Active Dr. Marcelina Foster , DO Other Provider Active Dr. Michi Forbes DO Attending Provider Active Senior Ui Developer Relationship Specialty Start Date End Date Dacia Acosta MD [address] [place] [address] PCP - General Family Medicine 08/24/10 Team Status: Inactive Member Role Status Dates Dr. Dacia Acosta MD Primary Care Provider, Referr ing Provider Active Dr. Son Adams MD Attending Provider Active Team Status: Active Member Role Status Dates Dr. Dacia Acosta MD Primary Care Provider Active Dr. Son Adams MD Referring Provider, Other Provi jazmyne Active Dr. Marcelina Foster , DO Other Provider Active Jonathan Denton , SENIOR PROFESSIONAL SERVICES CONSULTANT-C Attending Provider Active Team Status: Inactive Member Role Status Dates Dr. Dacia Acosta MD Primary Care Provider Active Dr. Son Adams MD Attending Provider, Referring P rovider Active Dr. Marcelina Foster , DO Other [...] Dr. Oscar Pantoja MD Attending Provider Active Senior Ui Developer Relationship Specialty Start Date End Date Dacia Acosta MD [address] [place] [address] PCP - General Family Medicine 08/24/10 Senior Ui Developer Relationship Specialty Start Date End Date Dacia Acosta MD [address] [place] [address] PCP - General Family Medicine 08/24/10 Team Status: Inactive Member Role Status Dates Dr. Dacia Acosta MD Primary Care Provider Active Dr. Jake Harding MD Emergency Provider Active Senior Ui Developer Relationship Specialty Start Date End Date Dacia Acosta MD [address] [place] [address] PCP - General Family Medicine 08/24/10 Team Status: Inactive Member Role Status Dates Dr. Dacia Acosta MD Primary Care Provider Active Dr. Yimi Hutchinson DO Emergency Provider Active Team Status: Inactive Member Role Status Dates Dr. Dacia Acosta MD Primary Care Provider Active Dr. Timoteo Gardiner MD Emergency Provider Active Senior Ui Developer Relationship Specialty Start Date End Date Dacia Acosta MD [address] [place] [address] PCP - General Family Medicine 08/24/10 Priscilla Del Angel, NASH [address] [facility] [place] [address] Primary Care Team Leader/Research Psychologist Internal Medicine 11/24/23 Senior Ui Developer Relationship Specialty Start Date End Date Dacia Acosta MD [address] [facility], [place] [address] PCP - General Family Medicine 08/24/10 Priscilla Del Angel, RN [address] [place] [address] Primary Care Team Leader/Research Psychologist Internal Medicine 11/24/23 Senior Ui Developer Relationship Specialty Start Date End Date Dacia Acosta MD [address] [facility] [place] [address] PCP - General Family Medicine 08/24/10 Priscilla Del Angel, RN [address] [place] [address] Primary Care Team Leader/Research Psychologist Internal Medicine 11/24/23 Senior Ui Developer Relationship Specialty Start Date End Date Dacia Acosta MD [address] [facility] [place] [address] PCP - General Family Medicine 08/24/10 Priscilla Del Angel, RN [address] [place] [address] Primary Care Team Leader/Research Psychologist Internal Medicine 11/24/23 Team Status: Inactive Member [...] Adams MD Other Provider Active Jonathan Denton NP-C Attending Provider Active Team Status: Active Member Role Status Dates Dr. Dacia Acosta MD Primary Care Provider Active Dr. Emperatriz Craig MD Emergency Provider Active Dr. Sowmya Mirza MD Admit Provider, Other Provider Active Dr. Son Adams MD Attending Provider, Other Provi jazmyne Active Team Status: Active Member Role Status [...] Son Adams MD Attending Provider, Other Provi jazmyne Active Dr. Ricardo Pollack DPM Other Provider [...] Dr. Ricardo Pollack DPM Other Provider Active Senior Ui Developer Relationship Specialty Start Date End Date Dacia Acosta MD [address] [place] [address] PCP - General Family Medicine 08/24/10 Priscilla Del Angel RN [address] [place], [place] [id number] Primary Care Team Leader/Research Psychologist Internal Medicine 11/24/23 12/07/23 Senior Ui Developer Relationship Specialty Start Date End Date Dacia Acosta MD [address] [place], [place] [address] PCP - General Family Medicine 08/24/10 Senior Ui Developer Relationship Specialty Start Date End Date Dacia Acosta MD [address] [place], [place] [address] PCP - General Family Medicine 08/24/10 Team Status: Active Member Role Status Dates Dr. Dacia Acosta MD Primary Care Provider Active Dr. Emperatriz Craig MD Emergency Provider Active Dr. Sowmya Mirza MD Admit Provider, Other Provider Active Dr. Son Adams MD Referring Provider, Other Provi jazmyne Active Dr. Marcelina Foster DO Attending Provider Active Team Status: Active Member Role Status Dates Dr. Dacia Acosta MD Primary Care Provider Active Dr. Emperatriz Craig MD Emergency Provider Active Dr. Sowmya Mirza MD Admit Provider, Other Provider Active Dr. Son Adams MD Referring Provider, Other Provi jazmyne Active Dr. Ricardo Pollack DPM Other Provider [...] Dr. Marcelina Foster DO Attending Provider Active Senior Ui Developer Relationship Specialty Start Date End Date Dacia Acosta MD [address] [place], [place] [id number] PCP - General Family Medicine 08/24/10 Senior Ui Developer Relationship Specialty Start Date End Date Dacia Acosta MD [address] [place], [place] [id number] PCP - General Family Medicine 08/24/10 Senior Ui Developer Relationship Specialty Start Date End Date Dacia Acosta MD [address] [place] [address] PCP - General Family Medicine 08/24/10 Senior Ui Developer Relationship Specialty Start Date End Date Dacia Acosta MD [address] [place] [address] PCP - General Family Medicine 08/24/10 Senior Ui Developer Relationship Specialty Start Date End Date Dacia Acosta MD [address] [place] [address] PCP - General Family Medicine 08/24/10 Senior Ui Developer Relationship Specialty Start Date End Date Dacia Acosta MD [address] [place] [address] PCP - General Family Medicine 08/24/10 Senior Ui Developer Relationship Specialty Start Date End Date Dacia Acosta MD [address] [place] [address] PCP - General Family Medicine 08/24/10 Senior Ui Developer Relationship Specialty Start Date End Date Dacia Acosta MD [address] [place] [address] PCP - General Family Medicine 08/24/10 Senior Ui Developer Relationship Specialty Start Date End Date Dacia Acosta MD [address] [place] [address] PCP - General Family Medicine 08/24/10 Senior Ui Developer Relationship Specialty Start Date End Date Dacia Acosta MD [address] [facility] [place] [address] PCP - General Family Medicine 08/24/10 Senior Ui Developer Relationship Specialty Start Date End Date Dacia Acosta MD [address] [facility] [place] [address] PCP - General Family Medicine 08/24/10 Senior Ui Developer Relationship Specialty Start Date End Date Dacia Acosta MD [address] [facility] [place] [address] PCP - General Family Medicine 08/24/10 Senior Ui Developer Relationship Specialty Start Date End Date Dacia Acosta MD [address] [place] [address] PCP - General Family Medicine 08/24/10 Senior Ui Developer Relationship Specialty Start Date End Date Dacia Acosta MD [address] [facility] [place] [address] PCP - General Family Medicine 08/24/10 Senior Ui Developer Relationship Specialty Start Date End Date Dacia Acosta MD [address] [facility] [place] [address] PCP - General Family Medicine 08/24/10 Senior Ui Developer Relationship Specialty Start Date End Date Dacia Acosta MD [address] [facility] [place] [address] PCP - General Family Medicine 08/24/10 Senior Ui Developer Relationship Specialty Start Date End Date Katharina Welsh MD [address] [place] [address] Gastroenterology 07/25/24 Senior Ui Developer Relationship Specialty Start Date End Date Katharina Welsh MD [address] [place] [address] Gastroenterology 07/25/24 Senior Ui Developer Relationship Specialty Start Date End Date Katharina Welsh MD [address] [place] [address] Gastroenterology 07/25/24 Senior Ui Developer Relationship Specialty Start Date End Date Katharina Welsh MD [address] [place] [address] Gastroenterology 07/25/24 Senior Ui Developer Relationship Specialty Start Date End Date Katharina Welsh MD [address] [place] [address] Gastroenterology 07/25/24 Senior Ui Developer Relationship Specialty Start Date End Date Katharina Welsh MD [address] [place] [address] Gastroenterology 07/25/24 Senior Ui Developer Relationship Specialty Start Date End Date Katharina Welsh MD [address] [place] [address] Gastroenterology 07/25/24 Senior Ui Developer Relationship Specialty Start Date End Date Katharina Welsh MD [address] [place] [address] Gastroenterology 07/25/24 Ashlee Frazier APRN [address] [place] [address] Gastroenterology 09/20/24 Senior Ui Developer Relationship Specialty Start Date End Date Katharina Welsh MD [address] [place] [address] [address] [place] [address] Gastroenterology 07/25/24 Ashlee Frazier APRN [address] [place] [address] Gastroenterology 09/20/24 Senior Ui Developer Relationship Specialty Start Date End Date Ange Espinoza DO [address] [place] [address] PCP - General Family Medicine 09/27/24 Katharina Welsh MD [address] [place] [address] Gastroenterology 07/25/24 Ashlee Frazier APRN [address] [place] [address] Gastroenterology 09/20/24 Senior Ui Developer Relationship Specialty Start Date End Date Ange Espinoza DO [address] [place] [address] PCP - General Family Medicine 09/27/24 Katharina Welsh MD [address] [place] [address] Gastroenterology 07/25/24 Ashlee Frazier APRN [address] [place] [address] Gastroenterology 09/20/24 Senior Ui Developer Relationship Specialty [place] [address] [place] [address] PCP - General Family Medicine 09/27/24 Katharina Welsh MD [address] [place] [address] Gastroenterology 07/25/24 Ashlee Frazier APRN [address] [place] [address] Gastroenterology 09/20/24 Senior Ui Developer Relationship Specialty Start Date End Date Katharina Lopez APRN PCP - General Adult Health 08/15/24 03/25/25 Senior Ui Developer Relationship Specialty Start Date End Date Ange Espinoza DO [address] [place] [address] PCP - General Family Medicine 09/27/24 Katharina Welsh MD [address] [place] [address] Gastroenterology 07/25/24 Ashlee Frazier APRN [address] [place] [address] Gastroenterology 09/20/24 Senior Ui Developer Relationship Specialty Start [place] [address] [place] [address] PCP - General Family Medicine 09/27/24 Katharina Welsh MD [address] [place] [address] Gastroenterology 07/25/24 Ashlee Frazier APRN [address] [place] [address] [address] [place] [address] Gastroenterology 09/20/24 Senior Ui Developer Relationship Specialty Start Date End Date Ange Espinoza DO [address] [place] [address] PCP - General Family Medicine 09/27/24 Katharina Welsh MD [address] [place] [address] [address] [place] [address] Gastroenterology 07/25/24 Ashlee Frazier APRN [address] [place] [address] [place] [address] Gastroenterology 09/20/24 Senior Ui Developer Relationship Specialty Start Date End Date Ange Espinoza DO [address] [place] [address] PCP - General Family Medicine 09/27/24 Katharina Welsh MD [address] [place] [address] [address] [place] [address] Gastroenterology 07/25/24 Ashlee Frazier APRN [address] [place] [address] [place] [address] Gastroenterology 09/20/24 Senior Ui Developer Relationship Specialty Start Date End Date Ange Espinoza DO [address] [place] [address] PCP - General Family Medicine 09/27/24 Katharina Welsh MD [address] [address] Gastroenterology 07/25/24 Ashlee Frazier APRN [address] [place] [address] [place] [address] Gastroenterology 09/20/24 Senior Ui Developer Relationship Specialty Start Date End Date Ange Espinzoa DO [address] [place] [address] PCP - General Family Medicine 09/27/24 Katharina Welsh MD [address] [place] [address] Gastroenterology 07/25/24 Ashlee Frazier APRN [address] [place] [address] [place] [address] Gastroenterology 09/20/24 Team Status: Active Member Role Status Dates [facility] Primary Care Provider A ctive Team Status: Inactive Member Role Status Dates [facility] Primary Care Provider A ctive Start: January 23, 2025 End: January 23, 2025 [facility] Referring Provider Acti ve Start: January 23, 2025 End: January 23, 2025 Dr. Son Adams MD Attending Provider Active Start: January 23, 2025 End: January 23, 2025 Team Status: Inactive Member Role Status Dates [facility] Primary Care Provider A ctive Start: February 04, 2025 End: February 04, 2025 Dr. Michi Cope DO Emergency Provider Active Start: February 04, 2025 End: February 04, 2025 Team Status: Active Member Role Status Dates Tresa Sandoval SENIOR PROFESSIONAL SERVICES CONSULTANT-C Primary Care Provider Active Team Status: Inactive Member Role Status Dates [facility] Primary Care Provider A ctive Start: February 04, 2025 End: February 04, 2025 Dr. Michi Cope DO Attending Provider Active Start: February 04, 2025 End: February 04, 2025 Dr. Michi Cope DO Emergency Provider Active Start: February 04, 2025 End: February 04, 2025 Team Status: Active Member Role Status Dates Tresa Sandoval SENIOR PROFESSIONAL SERVICES CONSULTANT-C Primary Care Provider Active Start: February 07, 2025 Tresa Sandoval NP-C Attending Provider Active Start: February 07, 2025 Team Status: Inactive Member Role Status Dates Tresa Sandoval SENIOR PROFESSIONAL SERVICES CONSULTANT-C Primary Care Provider Active Start: February [...] Inactive Member Role Status Dates Tresa Sandoval SENIOR PROFESSIONAL SERVICES CONSULTANT-C Primary Care Provider Active Start: February 08, 2025 End: February 08, 2025 Dr. Chris Ramos MD Attending Provider Active Start: February 08, 2025 End: February 08, 2025 Dr. Chris Ramos MD Emergency Provider Active Start: February 08, 2025 End: February 08, 2025 Team Status: Inactive Member Role Status Dates Tresa Sandoval NP-C Primary Care Provider Active Start: February 21, 2025 End: February 22, 2025 Dr. Pedrito Rosario DO Emergency Provider Active Start : February 21, 2025 End: February 22, 2025 Team Status: Inactive Member Role Status Dates Tresa Sandoval SENIOR PROFESSIONAL SERVICES CONSULTANT-C Primary Care Provider Active Start: February 26, 2025 End: February 26, 2025 Tresa Sandoval SENIOR PROFESSIONAL SERVICES CONSULTANT-C Attending Provider Active Start: February 26, 2025 End: February 26, 2025 Team Status: Inactive Member Role Status Dates Tresa Sandoval SENIOR PROFESSIONAL SERVICES CONSULTANT-C Primary Care Provider Active Start: February 26, 2025 End: February 26, 2025 Dr. Brock Ruiz DO Emergency Provider Activ e Start: February 26, 2025 End: February 26, 2025 Team Status: Active Member Role Status Dates Tresa Sandoval SENIOR PROFESSIONAL SERVICES CONSULTANT-C Primary Care Provider Active Start: February 26, 2025 Tresa Sandoval SENIOR PROFESSIONAL SERVICES CONSULTANT-C Attending Provider Active Start: February 26, 2025 Team Status: Active Member Role Status Dates Zebulutimothy Beam VSC, SENIOR PROFESSIONAL SERVICES CONSULTANT-C Primary Care Provider Active Team Status: Inactive Member Role Status Dates Tresa Sandoval SENIOR PROFESSIONAL SERVICES CONSULTANT-C Primary Care Provider Active Start: February 26, [...] End: March 15, 2025 Zebulun Beam VSC, SENIOR PROFESSIONAL SERVICES CONSULTANT-C Primary Care Provider Active Start: March 15, 2025 End: March 15, 2025 Zebulun Beam VSC, SENIOR PROFESSIONAL SERVICES CONSULTANT-C Referring Provider Active Start: March 15, 2025 End: March 15, 2025 Team Status: Active Member Role Status Dates Dr. Marcelina Foster DO Attending Provider Active Start: March 15, 2025 Dr. Marcelina Foster DO Other Provider Active St art: March 15, 2025 Zebulun Beam VSC, SENIOR PROFESSIONAL SERVICES CONSULTANT-C Primary Care Provider Active Start: March 15, 2025 Zebulun Beam VSC, SENIOR PROFESSIONAL SERVICES CONSULTANT-C Referring Provider Active Start: March 15, 2025 Team Status: Active Member Role/Relationship Status Dates Eyad Beam VSC, SENIOR PROFESSIONAL SERVICES CONSULTANT-C Primary Care Provider Active Team Status: Inactive Member Role/Relationship Status Dates [facility] Primary Care Provider A ctive Start: January 23, 2025 End: January 23, 2025 [facility] Referring Provider Acti ve Start: January 23, 2025 End: January 23, 2025 Dr. Son Adams MD Attending Provider Active Start: January 23, 2025 End: January 23, 2025 Team Status: Inactive Member Role/Relationship Status Dates [facility] Primary Care Provider A ctive [...] NP-C Primary Care Provider Active Start: February 21, 2025 End: February 22, 2025 Dr. Pedrito Rosario DO Emergency Provider Active Start : February 21, 2025 End: February 22, 2025 Team Status: Inactive Member Role/Relationship Status Dates Tresa Sandoval NP-C Primary Care Provider Active Start: February 26, 2025 End: February 26, 2025 [place] Victoria Attending Provider Active Start: February 26, 2025 End: February 26, 2025 Team Status: Inactive Member Role/Relationship Status Dates Tresa Sandoval NP-C Primary Care Provider Active Start: February 26, [...] End: March 15, 2025 Zebulun Beam VSC, SENIOR PROFESSIONAL SERVICES CONSULTANT-C Primary Care Provider Active Start: March 15, 2025 End: March 15, 2025 Zebulun Beam VSC, SENIOR PROFESSIONAL SERVICES CONSULTANT-C Referring Provider Active Start: March 15, 2025 End: March 15, 2025 Team Status: Active Member Role/Relationship Status Dates Dr. Marcelina Foster DO Attending Provider Active Start: March 15, 2025 Dr. Marcelina Foster DO Other Provider Active St art: March 15, 2025 Zebulun Beam VSC, SENIOR PROFESSIONAL SERVICES CONSULTANT-C Primary Care Provider Active Start: March 15, 2025 Zebulun Beam VSC, SENIOR PROFESSIONAL SERVICES CONSULTANT-C Referring Provider Active Start: March 15, 2025 Team Status: Inactive Member Role/Relationship Status Dates Zebulun Beam VSC, SENIOR PROFESSIONAL SERVICES CONSULTANT-C Primary Care Provider Active Start: March 27, 2025 End: March 27, 2025 Zebulun Beam VSC, SENIOR PROFESSIONAL SERVICES CONSULTANT-C Attending Provider Active Start: March 27, 2025 End: March 27, 2025 Zebulun Beam VSC, SENIOR PROFESSIONAL SERVICES CONSULTANT-C Referring Provider Active Start: March 27, 2025 End: March 27, 2025 Team Status: Inactive Member Role/Relationship Status Dates Zebulun Beam VSC, SENIOR PROFESSIONAL SERVICES CONSULTANT-C Primary Care Provider Active Start: April 04, 2025 End: April 04, 2025 Zebulun Beam VSC, SENIOR PROFESSIONAL SERVICES CONSULTANT-C Attending Provider Active Start: April 04, 2025 End: April 04, 2025 Zebulun Beam VSC, SENIOR PROFESSIONAL SERVICES CONSULTANT-C Referring Provider Active Start: April 04, 2025 End: April 04, 2025 Team Status: Inactive Member Role/Relationship Status Dates Tresa Sandoval , SENIOR PROFESSIONAL SERVICES CONSULTANT-C Primary Care Provider Active Start: February 21, 2025 End: February 22, 2025 Dr. Pedrito Rosario DO Attending Provider Active Start : February 21, 2025 End: February 22, 2025 Dr. Pedrito Rosario DO Emergency Provider Active Start : February 21, 2025 End: February 22, 2025 Team Status: Active Member Role/Relationship Status Dates Zebulun Beam VSC, SENIOR PROFESSIONAL SERVICES CONSULTANT-C Primary Care Provider Active Start: April 04, 2025 End: April 04, 2025 Zebulun Beam VSC, SENIOR PROFESSIONAL SERVICES CONSULTANT-C Referring Provider Active Start: April 04, 2025 End: April 04, 2025 Dr. Azam Schneider MD Attending Provider Active S tart: April 04, 2025 End: April 04, 2025 Team Status: Inactive Member Role/Relationship Status Dates Zebulun Beam VSC, SENIOR PROFESSIONAL SERVICES CONSULTANT-C Primary Care Provider Active Start: May 07, 2025 End: May 07, 2025 Zebulun Beam VSC, SENIOR PROFESSIONAL SERVICES CONSULTANT-C Attending Provider Active Start: May 07, 2025 End: May 07, 2025 Zebulun Beam VSC, SENIOR PROFESSIONAL SERVICES CONSULTANT-C Referring Provider Active Start: May 07, 2025 End: May 07, 2025 Team Status: Inactive Member Role/Relationship Status Dates [facility] Referring Provider Acti ve Start: May 15, 2025 End: May 15, 2025 Dr. Son Adams MD Attending Provider Active Start: May 15, 2025 End: May 15, 2025 Zebulun Beam VSC, SENIOR PROFESSIONAL SERVICES CONSULTANT-C Primary Care Provider Active Start: May 15, 2025 End: May 15, 2025 Team Status: Inactive Member Role/Relationship Status Dates [facility] Primary Care Provider A ctive Start: February 04, 2025 End: February 04, 2025 Dr. Michi Cope , Attending Provider Active Start: February 04, 2025 End: February 04, 2025 Dr. Michi Cope , Emergency Provider Active Start: February 04, 2025 End: February 04, 2025 Team Status: Inactive Member Role/Relationship Status Dates Tresa Sandoval , SENIOR PROFESSIONAL SERVICES CONSULTANT-C Primary Care Provider Active Start: February 07, 2025 End: February 07, 2025 Tresa Sandoval , SENIOR PROFESSIONAL SERVICES CONSULTANT-C Attending Provider Active Start: February 07, 2025 End: February 07, 2025 Team Status: Inactive Member Role/Relationship Status Dates Tresa Sandoval , SENIOR PROFESSIONAL SERVICES CONSULTANT-C Primary Care Provider Active Start: February 08, 2025 End: February 08, 2025 Dr. Chris Ramos MD Attending Provider Active Start: February 08, 2025 End: February 08, 2025 Dr. Chris Ramos MD Emergency Provider Active Start: February 08, 2025 End: February 08, 2025 Team Status: Inactive Member Role/Relationship Status Dates Tresasegundo Sandoval , SENIOR PROFESSIONAL SERVICES CONSULTANT-C Primary Care Provider Active Start: February 21, 2025 End: February 22, 2025 Dr. Pedrito Rosario DO Attending Provider Active Start : February 21, 2025 End: February 22, 2025 Dr. Pedrito Rosario , Emergency Provider Active Start : February 21, 2025 End: February 22, 2025 Team Status: Inactive Member Role/Relationship Status Dates Tresasegundo Sandoval , SENIOR PROFESSIONAL SERVICES CONSULTANT-C Primary Care Provider Active Start: February 26, 2025 End: February 26, 2025 Tresa Sandoval SENIOR PROFESSIONAL SERVICES CONSULTANT-C Attending Provider Active Start: February 26, 2025 End: February 26, 2025 Team Status: Inactive Member Role/Relationship Status Dates Tresasegundo Sandoval , SENIOR PROFESSIONAL SERVICES CONSULTANT-C Primary Care Provider Active Start: February 26, 2025 End: February 26, 2025 Dr. Brock Ruiz , Attending Provider Activ e Start: February 26, [...] End: March 15, 2025 Zebulun Beam VSC, SENIOR PROFESSIONAL SERVICES CONSULTANT-C Primary Care Provider Active Start: March 15, 2025 End: March 15, 2025 Zebulun Beam VSC, SENIOR PROFESSIONAL SERVICES CONSULTANT-C Referring Provider Active Start: March 15, 2025 End: March 15, 2025 Team Status: Active Member Role/Relationship Status Dates Dr. Marcelina Foster DO Attending Provider Active Start: March 15, 2025 Dr. Marcelina Foster DO Other Provider Active St art: March 15, 2025 Zebulun Beam VSC, SENIOR PROFESSIONAL SERVICES CONSULTANT-C Primary Care Provider Active Start: March 15, 2025 Zebulun Beam VSC, SENIOR PROFESSIONAL SERVICES CONSULTANT-C Referring Provider Active Start: March 15, 2025 Team Status: Inactive Member Role/Relationship Status Dates Zebulun Beam VSC, SENIOR PROFESSIONAL SERVICES CONSULTANT-C Primary Care Provider Active Start: March 27, 2025 End: March 27, 2025 Zebulun Beam VSC, SENIOR PROFESSIONAL SERVICES CONSULTANT-C Attending Provider Active Start: March 27, 2025 End: March 27, 2025 Zebulun Beam VSC, SENIOR PROFESSIONAL SERVICES CONSULTANT-C Referring Provider Active Start: March 27, 2025 End: March 27, 2025 Team Status: Inactive Member Role/Relationship Status Dates Zebulun Beam VSC, SENIOR PROFESSIONAL SERVICES CONSULTANT-C Primary Care Provider Active Start: April 04, 2025 End: April 04, 2025 Zebulun Beam VSC, SENIOR PROFESSIONAL SERVICES CONSULTANT-C Attending Provider Active Start: April 04, 2025 End: April 04, 2025 Zebulun Beam VSC, SENIOR PROFESSIONAL SERVICES CONSULTANT-C Referring Provider Active Start: April 04, 2025 End: April 04, 2025 Team Status: Active Member Role/Relationship Status Dates Zebulun Beam VSC, SENIOR PROFESSIONAL SERVICES CONSULTANT-C Primary Care Provider Active Start: April 04, 2025 End: April 04, 2025 Zebulun Beam VSC, SENIOR PROFESSIONAL SERVICES CONSULTANT-C Referring Provider Active Start: April 04, 2025 End: April 04, 2025 Dr. Azam Schneider MD Attending Provider Active S tart: April 04, 2025 End: April 04, 2025 Team Status: Inactive Member Role/Relationship Status Dates Zebulun Beam VSC, SENIOR PROFESSIONAL SERVICES CONSULTANT-C Primary Care Provider Active Start: May 07, 2025 End: May 07, 2025 Zebulun Beam VSC, SENIOR PROFESSIONAL SERVICES CONSULTANT-C Attending Provider Active Start: May 07, 2025 End: May 07, 2025 Zebulun Beam VSC, SENIOR PROFESSIONAL SERVICES CONSULTANT-C Referring Provider Active Start: May 07, 2025 End: May 07, 2025 Team Status: Inactive Member Role/Relationship Status Dates [facility] Referring Provider Acti ve Start: May 15, 2025 End: May 15, 2025 Dr. Son Adams MD Attending Provider Active Start: May 15, 2025 End: May 15, 2025 Zebulun Beam VSC, SENIOR PROFESSIONAL SERVICES CONSULTANT-C Primary Care Provider Active Start: May 15, 2025 End: May 15, 2025 Team Status: Inactive Member Role/Relationship Status Dates Zebulun Beam VSC, SENIOR PROFESSIONAL SERVICES CONSULTANT-C Primary Care Provider Active Start: May 20, 2025 End: May 20, 2025 Zebulun Beam VSC, SENIOR PROFESSIONAL SERVICES CONSULTANT-C Attending Provider Active Start: May 20, 2025 End: May 20, 2025 Zebulun Beam VSC, SENIOR PROFESSIONAL SERVICES CONSULTANT-C Referring Provider Active Start: May 20, 2025 End: May 20, 2025 Team Status: Active Member Role/Relationship Status Dates Zebulun Beam VSC, SENIOR PROFESSIONAL SERVICES CONSULTANT-C Primary care physician Active Team Status: Inactive [...] End: March 15, 2025 Zebulun Beam VSC, SENIOR PROFESSIONAL SERVICES CONSULTANT-C Primary care physician Active Start: March 15, 2025 End: March 15, 2025 Zebulun Beam VSC, SENIOR PROFESSIONAL SERVICES CONSULTANT-C Referring Provider Active Start: March 15, 2025 End: March 15, 2025 Team Status: Active Member Role/Relationship Status Dates Dr. Marcelina Foster DO Attending physician Active Start: March 15, 2025 Dr. Marcelina Foster DO Nurse Practitioner Active Start: March 15, 2025 Zebulun Beam VSC, SENIOR PROFESSIONAL SERVICES CONSULTANT-C Primary care physician Active Start: March 15, 2025 Zebulun Beam VSC, SENIOR PROFESSIONAL SERVICES CONSULTANT-C Referring Provider Active Start: March 15, 2025 Team Status: Inactive Member Role/Relationship Status Dates Zebulun Beam VSC, SENIOR PROFESSIONAL SERVICES CONSULTANT-C Primary care physician Active Start: March 27, 2025 End: March 27, 2025 Zebulun Beam VSC, SENIOR PROFESSIONAL SERVICES CONSULTANT-C Attending physician Active Start: March 27, 2025 End: March 27, 2025 Zebulun Beam VSC, SENIOR PROFESSIONAL SERVICES CONSULTANT-C Referring Provider Active Start: March 27, 2025 End: March 27, 2025 Team Status: Inactive Member Role/Relationship Status Dates Zebulun Beam VSC, SENIOR PROFESSIONAL SERVICES CONSULTANT-C Primary care physician Active Start: April 04, 2025 End: April 04, 2025 Zebulun Beam VSC, SENIOR PROFESSIONAL SERVICES CONSULTANT-C Attending physician Active Start: April 04, 2025 End: April 04, 2025 Zebulun Beam VSC, SENIOR PROFESSIONAL SERVICES CONSULTANT-C Referring Provider Active Start: April 04, 2025 End: April 04, 2025 Team Status: Active Member Role/Relationship Status Dates Zebulun Beam VSC, SENIOR PROFESSIONAL SERVICES CONSULTANT-C Primary care physician Active Start: April 04, 2025 End: April 04, 2025 Zebulun Beam VSC, SENIOR PROFESSIONAL SERVICES CONSULTANT-C Referring Provider Active Start: April 04, 2025 End: April 04, 2025 Dr. Azam Schneider MD Attending physician Active Start: April 04, 2025 End: April 04, 2025 Team Status: Inactive Member Role/Relationship Status Dates Zebulun Beam VSC, SENIOR PROFESSIONAL SERVICES CONSULTANT-C Primary care physician Active Start: May 07, 2025 End: May 07, 2025 Zebulun Beam VSC, SENIOR PROFESSIONAL SERVICES CONSULTANT-C Attending physician Active Start: May 07, 2025 End: May 07, 2025 Zebulun Beam VSC, SENIOR PROFESSIONAL SERVICES CONSULTANT-C Referring Provider Active Start: May 07, 2025 End: May 07, 2025 Team Status: Inactive Member Role/Relationship Status Dates [facility] Referring Provider Acti ve Start: May 15, 2025 End: May 15, 2025 Dr. Son Adams MD Attending physician Active Start: May 15, 2025 End: May 15, 2025 Zebulun Beam VSC, SENIOR PROFESSIONAL SERVICES CONSULTANT-C Primary care physician Active Start: May 15, 2025 End: May 15, 2025 Team Status: Inactive Member Role/Relationship Status Dates Zebulun Beam VSC, SENIOR PROFESSIONAL SERVICES CONSULTANT-C Primary care physician Active Start: May 20, 2025 End: May 20, 2025 Zebulun Beam VSC, SENIOR PROFESSIONAL SERVICES CONSULTANT-C Attending physician Active Start: May 20, 2025 End: May 20, 2025 Zebulun Beam VSC, SENIOR PROFESSIONAL SERVICES CONSULTANT-C Referring Provider Active Start: May 20, 2025 End: May 20, 2025 Team Status: Inactive Member Role/Relationship Status Dates Zebulun Beam VSC, SENIOR PROFESSIONAL SERVICES CONSULTANT-C Primary care physician Active Start: June 26, 2025 End: June 26, 2025 [place] of Town Doctor Attending physician Active St art: June 26, 2025 End: June 26, 2025 Team Status: Inactive Member Role/Relationship Status Dates Zebulun Beam VSC, SENIOR PROFESSIONAL SERVICES CONSULTANT-C Primary care physician Active Start: March 27, 2025 End: March 27, 2025 Zebulun Beam VSC, SENIOR PROFESSIONAL SERVICES CONSULTANT-C Attending physician Active Start: March 27, 2025 End: March 27, 2025 Zebulun Beam VSC, SENIOR PROFESSIONAL SERVICES CONSULTANT-C Referring Provider Active Start: March 27, 2025 End: March 27, 2025 Team Status: Inactive Member Role/Relationship Status Dates Zebulun Beam VSC, SENIOR PROFESSIONAL SERVICES CONSULTANT-C Primary care physician Active Start: April 04, 2025 End: April 04, 2025 Zebulun Beam VSC, SENIOR PROFESSIONAL SERVICES CONSULTANT-C Attending physician Active Start: April 04, 2025 End: April 04, 2025 Zebulun Beam VSC, SENIOR PROFESSIONAL SERVICES CONSULTANT-C Referring Provider Active Start: April 04, 2025 End: April 04, 2025 Team Status: Active Member Role/Relationship Status Dates Zebulun Beam VSC, SENIOR PROFESSIONAL SERVICES CONSULTANT-C Primary care physician Active Start: April 04, 2025 End: April 04, 2025 Zebulun Beam VSC, SENIOR PROFESSIONAL SERVICES CONSULTANT-C Referring Provider Active Start: April 04, 2025 End: April 04, 2025 Dr. Azam Schneider MD Attending physician Active Start: April 04, 2025 End: April 04, 2025 Team Status: Inactive Member Role/Relationship Status Dates Zebulun Beam VSC, SENIOR PROFESSIONAL SERVICES CONSULTANT-C Primary care physician Active Start: May 07, 2025 End: May 07, 2025 Zebulun Beam VSC, SENIOR PROFESSIONAL SERVICES CONSULTANT-C Attending physician Active Start: May 07, 2025 End: May 07, 2025 Zebulun Beam VSC, SENIOR PROFESSIONAL SERVICES CONSULTANT-C Referring Provider Active Start: May 07, 2025 End: May 07, 2025 Team Status: Inactive Member Role/Relationship Status Dates [facility] Referring Provider Acti ve Start: May 15, 2025 End: May 15, 2025 Dr. Son Adams MD Attending physician Active Start: May 15, 2025 End: May 15, 2025 Zebulun Beam VSC, SENIOR PROFESSIONAL SERVICES CONSULTANT-C Primary care physician Active Start: May 15, 2025 End: May 15, 2025 Team Status: Inactive Member Role/Relationship Status Dates Zebulun Beam VSC, SENIOR PROFESSIONAL SERVICES CONSULTANT-C Primary care physician Active Start: May 20, 2025 End: May 20, 2025 Zebulun Beam VSC, SENIOR PROFESSIONAL SERVICES CONSULTANT-C Attending physician Active Start: May 20, 2025 End: May 20, 2025 Zebulun Beam VSC, SENIOR PROFESSIONAL SERVICES CONSULTANT-C Referring Provider Active Start: May 20, 2025 End: May 20, 2025 Team Status: Inactive Member Role/Relationship Status Dates Zebulun Beam VSC, SENIOR PROFESSIONAL SERVICES CONSULTANT-C Primary care physician Active Start: June 26, 2025 End: June 26, 2025 KASIA ELIAS Attending physician Active Start : June 26, 2025 End: June 26, 2025 Team Status: Inactive Member Role/Relationship Status Dates Zebulun Beam VSC, SENIOR PROFESSIONAL SERVICES CONSULTANT-C Primary care physician Active Start: July 11, 2025 End: July 11, 2025 Dr. Brock Ruiz DO Attending physician Active Start: July 11, 2025 End: July 11, 2025 Dr. Brock Ruiz DO Emergency Department Physician Active Start: July 11, 2025 End: July 11, 2025 Team Status: Inactive Member Role/Relationship Status Dates Zebulun Beam VSC, SENIOR PROFESSIONAL SERVICES CONSULTANT-C Primary care physician Active Start: July 15, 2025 End: July 15, 2025 Dr. Timoteo Gardiner MD Emergency Departmen t Physician Active Start: July 15, 2025 End: July 15, 2025 Team Status: Inactive Member Role/Relationship Status Dates Zebulun Beam VSC, SENIOR PROFESSIONAL SERVICES CONSULTANT-C Primary care physician Active Start: July 16, [...] Member Role/Relationship Status Dates Zebulun Beam VSC, SENIOR PROFESSIONAL SERVICES CONSULTANT-C Primary care physician Active Start: April 04, 2025 End: April 04, 2025 Zebulun Beam VSC, SENIOR PROFESSIONAL SERVICES CONSULTANT-C Attending physician Active Start: April 04, 2025 End: April 04, 2025 Zebulun Beam VSC, SENIOR PROFESSIONAL SERVICES CONSULTANT-C Referring Provider Active Start: April 04, 2025 End: April 04, 2025 Team Status: Active Member Role/Relationship Status Dates Zebulun Beam VSC, SENIOR PROFESSIONAL SERVICES CONSULTANT-C Primary care physician Active Start: April 04, 2025 End: April 04, 2025 Zebulun Beam VSC, SENIOR PROFESSIONAL SERVICES CONSULTANT-C Referring Provider Active Start: April 04, 2025 End: April 04, 2025 Dr. Azam Schneider MD Attending physician Active Start: April 04, 2025 End: April 04, 2025 Team Status: Inactive Member Role/Relationship Status Dates Zebulun Beam VSC, SENIOR PROFESSIONAL SERVICES CONSULTANT-C Primary care physician Active Start: May 07, 2025 End: May 07, 2025 Zebulun Beam VSC, SENIOR PROFESSIONAL SERVICES CONSULTANT-C Attending physician Active Start: May 07, 2025 End: May 07, 2025 Zebulun Beam VSC, SENIOR PROFESSIONAL SERVICES CONSULTANT-C Referring Provider Active Start: May 07, 2025 End: May 07, 2025 Team Status: Inactive Member Role/Relationship Status Dates [facility] Referring Provider Acti ve Start: May 15, 2025 End: May 15, 2025 Dr. Son Adams MD Attending physician Active Start: May 15, 2025 End: May 15, 2025 Zebulun Beam VSC, SENIOR PROFESSIONAL SERVICES CONSULTANT-C Primary care physician Active Start: May 15, 2025 End: May 15, 2025 Team Status: Inactive Member Role/Relationship Status Dates Zebulun Beam VSC, SENIOR PROFESSIONAL SERVICES CONSULTANT-C Primary care physician Active Start: May 20, 2025 End: May 20, 2025 Zebulun Beam VSC, SENIOR PROFESSIONAL SERVICES CONSULTANT-C Attending physician Active Start: May 20, 2025 End: May 20, 2025 Zebulun Beam VSC, SENIOR PROFESSIONAL SERVICES CONSULTANT-C Referring Provider Active Start: May 20, 2025 End: May 20, 2025 Team Status: Inactive Member Role/Relationship Status Dates Zebulun Beam VSC, SENIOR PROFESSIONAL SERVICES CONSULTANT-C Primary care physician Active Start: June 26, 2025 End: June 26, 2025 KASIA ELIAS Attending physician Active Start : June 26, 2025 End: June 26, 2025 Team Status: Inactive Member Role/Relationship Status Dates Zebulun Beam VSC, SENIOR PROFESSIONAL SERVICES CONSULTANT-C Primary care physician Active Start: July 11, 2025 End: July 11, 2025 Dr. Brock Ruiz DO Attending physician Active Start: July 11, 2025 End: July 11, 2025 Dr. Brock Ruiz DO Emergency Department Physician Active Start: July 11, 2025 End: July 11, 2025 Team Status: Inactive Member Role/Relationship Status Dates Zebulun Beam VSC, SENIOR PROFESSIONAL SERVICES CONSULTANT-C Primary care physician Active Start: July 15, 2025 End: July 15, 2025 Dr. Timoteo Gardiner MD Attending physician Active Start: July 15, 2025 End: July 15, 2025 Dr. [facility] Active Start: July 15, 2025 End: July 15, 2025 Team Status: Inactive Member Role/Relationship Status Dates Zebulun Beam VSC, SENIOR PROFESSIONAL SERVICES CONSULTANT-C Primary care physician Active Start: July 16, [...] Member Role/Relationship Status Dates Zebulun Beam VSC, SENIOR PROFESSIONAL SERVICES CONSULTANT-C Primary care physician Active Start: July 25, 2025 End: July 25, 2025 Zebulun Beam VSC, SENIOR PROFESSIONAL SERVICES CONSULTANT-C Referring Provider Active Start: July 25, 2025 End: July 25, 2025 JOSE Schmid Attending physician Active Sta rt: July 25, 2025 End: July 25, 2025 Team Status: Inactive Member Role/Relationship Status Dates Zebulun Beam VSC, SENIOR PROFESSIONAL SERVICES CONSULTANT-C Primary care physician Active Start: July 25, 2025 End: July 25, 2025 Dr. Ajit Berg MD Attending physician Active Start: July 25, 2025 End: July 25, 2025 Team Status: Inactive Member Role/Relationship Status Dates Zebulun Beam VSC, SENIOR PROFESSIONAL SERVICES CONSULTANT-C Primary care physician Active Start: July 25, 2025 End: July 25, 2025 Zebulun Beam VSC, SENIOR PROFESSIONAL SERVICES CONSULTANT-C Referring Provider Active Start: July 25, 2025 End: July 25, 2025 Dr. Son Adams MD Attending physician Active Start: July 25, 2025 End: July 25, 2025 Team Status: Inactive Member Role/Relationship Status Dates Zebulun Beam VSC, SENIOR PROFESSIONAL SERVICES CONSULTANT-C Primary care physician Active Start: July 25, [...] 0928 (Given - Provider: Kylah Parks RN) 08 (Given - Provider: Kylah Parks RN) 0945 [...] Martinez, NASH) 0945 (Given - Provider: Ricardo Landry, NASH) lactulose (Chronulac) 10 GM/15ML solution 20 g(Linked Group 1) 20 g, Oral, 3 times daily, First dose on 09/10/23 at 0900 0928 (Given - Provider: Kylah Parks RN)1338 (Given - Provider: Kylah Parks RN)2048 (Given - Provider: Jt Parsons RN) 08 (Given - Provider: Kylah Parks, NASH)144 (Given - Provider: Kylah Parks, NASH)2003 (Given - Provider: Haritha Martinez, NASH) 944 (Given - Provider: Ricardo Landry RN)1331 (Given - Provider: Ricardo Landyr RN) lactulose (Chronulac) 200 g in sterile [...] (See Alternative - Provider: Ricardo Landry RN) qrzuyjgj-bwvesnbqob-wj lymyxin (Neosporin) ointment (COMPLETED) Topical, Once, On Tue09/13/23 at 0345, For 1 dose, Apply to 0539 (Given - Provider: Jt Parsons RN) qdvetjeu-tjxkirvdfa-ij lymyxin (Neosporin) ointment Topical, 3 times daily, [...] 0608 (Given - Provider: Jt Parsons RN) 0626 (Given - Provider: Haritha Martinez, NASH) potassium [...] Kylah Parks, RN)2048 (Given - Provider: Jt Parosns, RN) 0831 (Given - Provider: Kylah Parks, RN)2003 (Given - Provider: Haritha Martinez, NASH) 0945 (Given - Provider: Ricardo Landry RN) traZODone (Desyrel) tablet 100 mg 100 mg, Oral, Nightly, First dose on 09/10/23 at 2100 2048 (Given - Provider: Jt Parsons RN) 2003 (Given - Provider: Haritha Martinez RN) PRN Medication Order 09/13/2023 09/14/2023 09/15/2023 acetaminophen [...] Provider: Kylah Parks, RN)2117 (Given - Provider: Jt Parsons, RN) 0401 (Given - Provider: Jt Parsons RN)0832 [...] sedation for opioid reversal - MUST notify precision machine operator provider immediately after first dose, may give [...] RN) 0404 (See Alternative - Provider: Jt Parsosn RN)1231 (See Alternative - Provider: Kylah Parks RN)1952 (See Alternative - Provider: Haritha Martinez RN) 0156 (See Alternative - Provider: Haritha Martinez RN) sodium chloride ([place]) 0.65 % nasal spray 2 spray 2 [...] PRN, 1 dose, Starting on 07/02/24 at 1318, Until 07/02/24 at 1318, Routine 1318 (Given - Provid [...] - Comment: JUst received from pharmacy.Out in [facility] 0935 (Given - Provider: Clifford Archuleta, NASH) ferrous sulfate DR tab 325 mg 325 mg, Oral, DAILY, First dose on Tue07/10/24 at 0900, Until Discontinued, Routine 0935 (Given - Provider: Clifford Archuleta, NASH) fluticasone propionate (FLONASE) nasal spray 1 [place] 1 [place], Each Nostril, DAILY, First dose on Tue07/10/24 at 0900, Until Discontinued, Routine, EACH NOSTRIL 0900 (Refused - Provider: Clifford Archuleta, NASH) hydroCHLOROthiazide tab 50 mg 50 mg, Oral, TWICE A DAY (DIURETIC), First dose on Tue07/09/24 at 2130, Until Discontinued, Routine 2154 (Refused - Provider: Rachel Ronquillo RN - [...] 1909, STAT 1922 (Given - Provider: Scot Pillai, NASH) ondansetron hcl (PF) (ZOFRAN) injection 4 mg (COMPLETED) 4 mg, Intravenous, ONE TIME ONLY, 1 dose, On Tue07/08/24 at 1909, Administer over 2 Minutes, STAT 192 (Given - Provider: Scot Pillai, NASH) pantoprazole (PROTONIX) DR tab 40 mg 40 mg, Oral, DAILY, First dose on Tue07/10/24 at 0900, Until Discontinued, Routine, Do not crush, open, or split 0936 (Given - Provider: Clifford Archuleta, NASH) spironolactone (ALDACTONE) tab 50 mg 50 mg, Oral, TWICE A DAY (DIURETIC), First dose on Tue07/09/24 at 2130, Until Discontinued, Routine 2154 (Refused - Provider: Rachel Ronquillo RN - Comment: says she does not want the side effects) 0935 (Given - Provider: Clifford rAchuleta, NASH)1800 (Canceled Entry - Provider: Auto Xfer/Discharge Rx - Comment: Automatically canceled at discontinue of medication order) topiramate (TOPAMAX) tab 25 mg 25 mg, Oral, DAILY, First dose on Tue07/10/24 at 0900, Until Discontinued, Routine, TOPAMAX LOOK ALIKE/SOUND ALIKE WARNING. 934 (Given - Provider: Clifford Archuleta RN) PRN [...] Maximum dose of Ibuprofen is 3.2 grams/day. 0815 ([facility] Hold - Provider: Auto Hold - Reason: Other)0915 ([facility] Unhold - Provider: Auto Hold) lidocaine (preservative free) 10 mg/mL (1 %) injection (COMPLETED) ONE TIME ONLY PRN, 1 dose, Starting on 07/09/24 at 0833, Until 07/09/24 at 0833, Routine 0833 (Given - Provider: Ginger Milton MD) morphine injection 3 mg 3 mg, Intravenous, EVERY 6 HOURS PRN, Starting on Tue07/08/24 at 1957, Until Tue07/10/24 at 1851, Pain scale 7-10 (try PO med first if multiple routes ordered for same pain rating), STAT 0118 (Given - Provider: Mohit Barnes RN)0711 (Given - Provider: Yumiko Rivas RN)0815 ([facility] Hold - Provider: Auto Hold - Reason: Other)0915 ([facility] Unhold - Provider: Auto Hold)1352 (Given - [...] RN)0711 (Given - Provider: Yumiko Rivas RN)0815 ([facility] Hold - Provider: Auto Hold - Reason: Other)0915 ([facility] Unhold - Provider: Auto Hold) PRN Medication Order 07/17/2024 07/18/2024 07/19/2024 albumin human 25 % vial (COMPLETED) ONE TIME ONLY PRN, 1 dose, Starting on Kiersten 07/19/24 at 1704, Until Kiersten 07/19/24 at 1704, Routine, Per P&T committee approval, Albumin orders will have a max duration of 1 day., Intra-Procedure 170 (Given - Provid er: Mike Evens) albumin human 25 % vial (COMPLETED) ONE TIME ONLY PRN, 1 dose, Starting on Kiersten 07/19/24 at 1708, Until Kiersten 07/19/24 at 1708, Routine, Per P&T committee approval, Albumin orders will have a max duration of 1 day., Intra-Procedure 170 (Given - Provid er: Mike Evens) lidocaine [...] a max duration of 1 day., Intra-Procedure 164 (Given - Provid er: Valentine Marley RN) [...] TIME ONLY PRN, 1 dose, Starting on Tue12/06/24 at 1000, Until Tue12/06/24 at 1001, Routine 1001 (Given - Provid er: Max Rico MD) Scheduled Medication Order 12/11/2024 12/12/2024 12/13/2024 busPIRone (BUSPAR) tab 10 mg 10 mg, Oral, THREE TIMES A DAY, First dose on Tue12/10/24 at 0900, Until Discontinued, STAT 0933 (Given - Provider: Chilo Henry LPN)1500 (Refused - Provider: Chilo Henry LPN)2024 (Given - Provider: Valentine Nieves LPN) 1221 [...] RN)2023 (Given - Provider: Valentine Nieves LPN) 1222 (Given - Provider: Yumiko Gardiner LPN)2150 (Given - Provider: Liudmila William LPN) 0948 (Given - Provider: Yumiko Gardiner LPN)2100 (Due) gadobenate dimeglumine (MULTIHANCE) injection 20 mL (COMPLETED) 20 mL, Intravenous, Once in imaging, 1 dose, Starting on Tue12/12/24 at 1131, Until Tue12/12/24 at 1131, Routine 1131 (Given - Provider: Crystal Ziegler) Lactobacillus rhamnosus GG (CULTURELLE) 15 billion cell [...] Discontinued, Administer over 1 Days, Routine, (WASTE: [facility]) 1829 (Patch Applied - Provider: Yumiko Gardiner [...] Tue12/10/24 at 0342, Until Kiersten 12/13/24 at 2058, Pain - see PRN comments, Headache, STAT acetaminophen (TYLENOL) tab 650 mg 650 mg, Oral, EVERY 6 HOURS PRN, Starting on Tue12/10/24 at 0342, Until Kiersten 12/13/24 at 2058, Fever, temp greater than or equal to 100.5F, STAT calcium gluconate in NaCl (ISO-OS) 100mL piggyback (PREMIX) 2 g 2 g, Intravenous, DIRECTED PRN, Starting on Tue12/10/24 at 0342, Until Tue12/13/24 at 2058, Administer over 60 Minutes, STAT, For Calcium less than 7., Other, For Calcium less than 7. ipratropium-albuteroL (DUO-NEB) 0.5 mg-3 mg(2.5 mg base)/3 mL neb soln 3 mL 3 mL, Inhalation, EVERY 6 HOURS PRN, Starting on Tue12/10/24 at 0342, Until Kiersten 12/13/24 at 2058, Wheezing, shortness of breath, STAT magnesium sulfate in water (2g/50mL premix) piggyback (PREMIX) 2 g 2 g, Intravenous, DIRECTED PRN, Starting on Tue12/10/24 at 0342, Until Tue12/13/24 at 2058, Administer over 8 [...] Oral, DIRECTED PRN, Starting on Tue12/10/24 at 0342, Until Tue12/13/24 at 2058, Other, For Potassium less than or equal to 3.4., STAT, DO NOT CRUSH DO NOT CRUSH, For Potassium less than or equal to 3.4. sodium chloride flush 0.9 % syringe 10 mL 10 mL, Intravenous, PRN, Starting on Tue12/10/24 at 0342, Until Tue12/13/24 at 2058, before and after IV push and IV piggyback medications, STAT traMADoL (ULTRAM) tab 50 mg 50 mg, Oral, EVERY 12 HOURS PRN, Starting on Tue12/11/24 at 1225, Until Tue12/13/24 at 2058, Pain scale 7-10 (try PO med first if multiple routes ordered for same pain rating), Routine, (WASTE: [facility]) 1325 (Given - Provider: Dilshad Manriquez RN) 0131 (Given - Provider: Liudmila William LPN) traZODone (DESYREL) tab 50 mg 50 mg, Oral, AT BEDTIME PRN, Starting on 12/10/24 at 0341, Until Kiersten 12/13/24 at 2059, Sleep, STAT 2150 (Given - Provider: Liudmila [...] BE BASED ON THE PRIMARY CLINICAL RECORDS. [facility] provides no warranty or guarantee of the accuracy or completeness of information in this document.
--- NOTE | 2025-08-11 21:29 | PCM.HP.STD ---
HPI - General General Date of Admission: 08/11/25 Date of Service: 08/11/25 Chief Complaint: Abdominal pain, distention, representing for paracentesis. HPI Narrative The patient is a 49 y/o F w/ PMHx: Obesity, Anxiety and Depression/Bipolar disorder, Polysubstance abuse, Chronic pain syndrome, Chronic anemia/Fe deficiency anemia, SUMAYA noncompliant with PAP therapy, GERD, Hx nephrolithiasis, GERD, Chronic migraines, COPD, Tobacco use, Chronic thrombocytopenia, EtOH abuse/Chronic Hepatitis C with cirrhotic liver disease with continued serial paracenteses needs who presents to the [facility] ED on 08/11/2025 with complaint of generalized abdominal discomfort, distention, swelling to lower legs with concern for worsening ascites with initial evaluation 08/10/2025 with reported offer at that time for admission for paracentesis however given that it would not be completed until Tuesday she left however now re-presenting with decision for admission so she will be able to obtain paracentesis in the AM. Workup in the ED included T98.2, heart rate 73, BP 135/65, respiratory rate 20, other percent on room air, pending CBC and CMP upon requested evaluation of patient. Most recent labs 08/10/2025 included CBC with WBC 8.6, hemoglobin 10.3, MCV 86.4, platelet 83 without marked shift, CMP with BUN/Guinan 8/0.94, GFR 74, glucose 106, T. bili 2.89, AST/ALT 90/59, alk phos 168, lipase 35, urinalysis unremarkable. [facility] Medical History Thrombocytopenia Dietary restriction History of pain when walking Decompensated cirrhosis Redness of skin Blackout Abdominal ascites Urolithiasis Hydronephrosis with renal calculous obstruction Hydroureteronephrosis Bipolar disorder Anxiety Depression Ascites of liver Complete edentulism, class III Alcohol abuse Chronic pain GERD (gastroesophageal reflux disease) Restless legs Iron deficiency anemia Hyperbilirubinemia Substance abuse Marijuana use MRSA infection Low iron Anemia Hepatitis Migraine headache Seizures History of diverticulitis COPD (chronic obstructive pulmonary disease) Smoker Obesity Polysubstance abuse Cirrhosis of liver Anxiety and depression Hepatitis C, chronic Home Medications Medication Instructions Recorded Last Taken Type trazodone 50 mg tablet 100 mg PO QHS PRN sleep 01/23/25 07/10/25 History lactulose 10 gram/15 mL oral 10 g (15 mL) PO TID PRN stomach 02/05/25 07/10/25 Rx solution upset #3,000 mL rifaximin 550 mg tablet (Xifaxan) 550 mg PO BID diarrhea 30 days #60 05/20/25 07/10/25 Rx tabs ursodiol 500 mg tablet 500 mg PO TID 1 month #90 tabs 05/21/25 07/10/25 Rx aripiprazole 5 mg tablet 5 mg PO DAILY 07/11/25 07/10/25 History buspirone 7.5 mg tablet 7.5 mg PO TID anxiety 07/11/25 07/10/25 History cholecalciferol (vitamin D3) 50 50 mcg PO DAILY supplement 07/11/25 07/10/25 History mcg (2,000 unit) capsule desvenlafaxine succinate 25 mg 25 mg PO DAILY depression 07/11/25 07/10/25 History tablet,extended release 24 hr desvenlafaxine succinate 50 mg 50 mg PO DAILY depression 07/11/25 07/10/25 History tablet,extended release 24 hr gabapentin 300 mg capsule 300 mg PO TID nerve pain 07/11/25 07/10/25 History lidocaine 5 % topical patch 1 patch topical DAILY PRN pain 3 07/11/25 Unknown Rx (Lidoderm) days #3 ea ramelteon 8 mg tablet 8 mg PO QHS sleep 07/11/25 07/10/25 History topiramate 50 mg tablet 50 mg PO DAILY seizures 07/11/25 07/10/25 History famotidine 20 mg tablet (Pepcid) 20 mg PO .evening PRN heart burn 1 07/25/25 Unknown Rx month #30 tabs sofosbuvir 400 mg-velpatasvir 100 1 tab PO QDAY 24 weeks #168 tabs 07/25/25 Unknown Rx mg tablet (Epclusa) furosemide 40 mg tablet (Lasix) 40 mg PO DAILY DIURETIC #30 tabs 07/30/25 Unknown Rx spironolactone 100 mg tablet 100 mg PO DAILY heart 1 month #30 07/30/25 Unknown Rx tabs bisacodyl 10 mg rectal suppository 10 mg WI DAILY PRN constipation 08/08/25 Unknown Rx (Dulcolax (bisacodyl)) #30 ea doxycycline hyclate 100 mg tablet 100 mg PO BID 08/10/25 Unknown History hydromorphone 2 mg tablet 2 mg PO 4X/DAY 08/10/25 Unknown History pantoprazole 40 mg tablet,delayed 40 mg PO DAILY 08/10/25 Unknown History release Allergy/AdvReac Type Severity Reaction Status Date / Time bupropion HCl (From Allergy SEIZURES Verified 08/11/25 20:56 Wellbutrin) codeine Allergy Rash Verified 08/11/25 20:56 Family History Mother Diabetes Father Cancer HX Throat CA. Surgical History History of abdominal paracentesis H/O tubal ligation History of liver biopsy Social History adopted: No household members: family housing: other number of children: 3 current occupational status: unemployed pets and animals: Yes history of recent travel: No sexually active: Yes Smoking Status: Current every day smoker tobacco type: cigarettes second hand exposure: Yes alcohol intake: current alcohol intake frequency: a few times a month substance use type: former substance user Date of last use: heroin, methamphetamine, marijuana and other seatbelt use: always do you feel safe at home: Yes ROS ROS Narrative Admission Review of Systems: CONSTITUTIONAL: No weight loss, fever, chills, + weakness or fatigue. HEENT: Eyes: No visual loss, blurred vision, double vision or yellow sclerae. Ears, Nose, Throat: No hearing loss, sneezing, congestion, runny nose or sore throat. SKIN: No rash or itching, lesions except + various picked regions on the face and extremities. CARDIOVASCULAR: No chest pain, chest pressure or chest discomfort, palpitations, edema, orthopnea, syncopal events. RESPIRATORY: No shortness of breath, cough or sputum, wheezing, hemoptysis. GASTROINTESTINAL: + anorexia, nausea, abdominal pain, abdominal distention. No vomiting or diarrhea, melena, BRBPR. GENITOURINARY: No dysuria, frequency, urgency or retention. NEUROLOGICAL: No headache, dizziness, syncope, paralysis, ataxia, numbness or tingling in the extremities, focal weakness, change in bowel or bladder control, seizure. MUSCULOSKELETAL: + muscle, back pain, joint pain or stiffness. HEMATOLOGIC: + Chronic anemia, easy bleeding/bruising. LYMPHATICS: No enlarged nodes. No history of splenectomy. PSYCHIATRIC: + History of anxiety and depression. ENDOCRINOLOGIC: No reports of sweating, cold or heat intolerance. No polyuria or polydipsia. ALLERGIES: No history of asthma, hives, eczema or rhinitis. Vital Signs Vital Signs Vital Signs: 08/11/25 20:53 Temperature 98.2 F Temperature Source Oral Pulse Rate 73 Respiratory Rate 20 H Blood Pressure 135/65 H Blood Pressure Mean 88 Pulse Ox 100 Oxygen Delivery Method Room Air Weight Weight: 226 lb 3 oz Body Mass Index (BMI) 37.6 Assessment & Plan Assessment/Plan (1) Abdominal distension: (2) Ascites: (3) Abdominal pain: PLAN: Plan The patient is a 49 y/o F w/ PMHx: Obesity, Anxiety and Depression/Bipolar disorder, Polysubstance abuse, Chronic pain syndrome, Chronic anemia/Fe deficiency anemia, SUMAYA noncompliant with PAP therapy, GERD, Hx nephrolithiasis, GERD, Chronic migraines, COPD, Tobacco use, Chronic thrombocytopenia, EtOH abuse/Chronic Hepatitis C with cirrhotic liver disease with continued serial paracenteses needs who presents to the [facility] ED on 08/11/2025 with complaint of generalized abdominal discomfort, distention, swelling to lower legs with concern for worsening ascites with initial evaluation 08/10/2025 with reported offer at that time for admission for paracentesis however given that it would not be completed until Tuesday she left however now re-presenting with decision for admission so she will be able to obtain paracentesis in the AM. #1. Acutely worsened ascites/abdominal distention secondary to underlying chronic alcoholic hepatitis C with underlying cirrhotic liver disease with associated with chronic hyperbilirubinemia/chronic transaminitis/hepatitis, chronic thrombocytopenia: Will admit to medical surgical floor, will continue ursodiol, spironolactone, antiviral regimen, temporally hold oral Lasix transition to IV for diuresis until paracentesis able to be obtained, will continue also lactulose regimen, radiology consulted for a.m. paracentesis primarily for comfort, following with palliative care and may need to organize more routine paracentesis at this time upon discharge. #2. Chronic Kidney Disease Stage II per GFR trending: Recent presentation 08/10/2025 BUN/creatinine 8/0.95, GFR 74, current admission BUN/creatinine pending upon request evaluation of patient, baseline renal function 0.8-1.0, continue to trend. #3. Polysubstance abuse, history of alcohol abuse with associated chronic thrombocytopenia: Encourage complete sobriety and clean status, alcohol level and UDS requested as patient in the past despite claiming sobriety/clean status continued to have drugs upon lab testing. #4. Chronic anemia/iron deficiency anemia: Current presentation CBC pending upon requested evaluation of patient, most recent 08/10/2025 hemoglobin 10.3, MCV 86.4, baseline hemoglobin primarily 10-11, continue iron supplementation, trend CBC. #5. Chronic COPD: Not on any chronic regimen, encouraged tobacco cessation, PRN albuterol, HOB, IS parameters. #6. Tobacco Abuse: Encouraged cessation, inpatient consultation per RT, NR if desired. #7. Hypertension: Will continue spironolactone, temporally holding Lasix as noted orally, administering IV while awaiting paracentesis. PRN IV hydralazine. #8. Hyperlipidemia: Per current list on a regimen, defer to outpatient. #9. Anxiety and Depression/Bipolar disorder: Continue patient home aripiprazole, BuSpar, desvenlafaxine home regimen, encourage continued follow-up outpatient with therapy/PCP as previously arranged. #10. Chronic migraines: We will continue patient home Topamax regimen. #11. Obesity: Weight loss and lifestyle changes encouraged. #12. SUMAYA: Noncompliant with PAP therapy. #13. GERD: Maintained on PPI. #14. DVT prophylaxis: SCDs, defer chemoprophylaxis given planned paracentesis as noted.
[2025-08-11 21:55] LABS: Hematocrit 30.5 % (37-47); Hemoglobin 9.7 g/dL (12.0-15.0); Immature Granulocytes Count 0.030 X10^3/uL (0.0-0.0); Mean Corp Hgb Conc 31.8 g/dL (32-36); Mean Corpuscular Volume 86.9 fL (81-99); Mean Platelet Vol. 11.2 fl (6.2-12.0); NRBC Flagged by Analyzer 0 % (0-5); POSITIVE COUNT YES; Platelet Count 68 K/mm3 (150-450); RBC Distribution Width CV 16.9 % (11.6-14.6); RBC Distribution Width SD 53.0 fl (35.1-43.9); Red Blood Count 3.51 M/mm3 (4.2-5.4); White Blood Count 7.5 K/mm3 (4.4-11.0)
[2025-08-11 22:06] LABS: AST(SGOT) 86 U/L (<=31); Alanine Aminotransfer ALT/SGPT 54 U/L (<=34); Albumin, Serum 3.0 g/dL (3.5-5.0); Alkaline Phosphatase 156 U/L (35-104); Anion Gap 7 (5-15); BUN 10 mg/dL (4-19); BUN/Creat Ratio 9.8 RATIO (10-20); Calcium,Total 9.0 mg/dL (7.6-11.0); Carbon Dioxide 23.7 mmol/L (21.0-32.0); Chloride 102 mmol/L (98-108); Estimated Creatinine Clearance 79.85 ml/min (50-250); Globulin 3.9 g/dL (2.2-4.2); Glucose 120 mg/dL (70-99); Potassium 3.6 mmol/L (3.3-5.1)
[2025-08-11 22:33] VITALS: BP 121/54; PULSE 74; RESP 16; TEMP 36.8; O2SAT 100
== END 2025-08-11 22:36 | disposition home or self-care (01) ==
PROVIDERS: Emergency Provider Emergency Medicine; Visit Provider Emergency Medicine
DX: R18.8 Other ascites (principal); K74.60 Unspecified cirrhosis of liver; F31.9 Bipolar disorder, unspecified; J44.9 Chronic obstructive pulmonary disease, unspecified; B18.2 Chronic viral hepatitis C; F17.210 Nicotine dependence, cigarettes, uncomplicated; D64.9 Anemia, unspecified; Z79.899 Other long term (current) drug therapy
CPT/HCPCS: 80053; 85025; 99283; A4216

== ENCOUNTER → 2025-08-12 | Outpatient (CLI) | payer MEDICAID, SELFPAY ==
--- NOTE | 2025-08-12 11:04 | US_ITS ---
PROCEDURE: ABDOMEN LIMITED 08/12/2025 REASON FOR EXAM: ABDOMINAL ASCITES.HISTORY OF CIRRHOSIS.THERAPEUTIC TECHNIQUE: Procedure Code: USABDL Modality: US Procedure: ABDOMEN LIMITED COMPARISON: CT examination of 08/10/2025. FINDINGS: The patient presented for possible ultrasound-guided paracentesis. 4 quadrant abdominal ultrasound to evaluate ascitic fluid was performed, which revealed only a relatively small amount of fluid, perhaps [id number], in degree. This was felt to be too small to warrant therapeutic paracentesis, at this time, so paracentesis was deferred. No additional finding on this limited examination. US/Abdomen Limited IMPRESSION: Relatively small amount of ascitic fluid, resulting in deferral of therapeutic paracentesis. Reading Location: [place] [id number]
== END | disposition home or self-care (01) ==
LOC: US 10:46
PROVIDERS: Referring Provider Internal Medicine; Visit Provider Internal Medicine
DX: R18.8 Other ascites (principal); Z87.19 Personal history of other diseases of the digestive system
CPT/HCPCS: 76705

== ENCOUNTER 2025-08-16 07:13 | Outpatient (RCR) | payer MEDICAID, SELFPAY ==
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
== END 2025-08-16 19:00 | disposition home or self-care (01) ==
LOC: PT 07:13
PROVIDERS: Referring Provider Student in an Organized Health Care Education/Training Program; Visit Provider Student in an Organized Health Care Education/Training Program
DX: M54.16 Radiculopathy, lumbar region (principal)
CPT/HCPCS: 97161